=== PATIENT | female | born 1940 | race Caucasian/White ===

== ENCOUNTER 2017-08-31 14:44 | Emergency (ER) | payer MEDICARE, OTHER, SELFPAY ==
[2017-08-31 14:45] VITALS: BP 153/74; PULSE 65; RESP 20; TEMP 36.2; O2SAT 96; BMI 43.7
--- NOTE | 2017-08-31 15:53 | ED.VISSUMM ---
- ER Visit Summary Date of Service: 08/31/17 Chief Complaint: Dog bite left hand History of Present Illness: The patient is a 77 F resents to the emergency department with dog bite to her left hand. Patient states that she was at a picnic. Her 4-year-old grandson dropped a hot dog. 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 Her dog bit her on the hand. Dog's vaccinations are up-to-date. The patient is unsure of her last tetanus. She states that she had a lot of pain and bleeding. She is not on anticoagulants. 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 Physical Examination: Exam is relatively unremarkable. The patient does have a 2 cm laceration that is full-thickness with some tissue avulsion. She also has a 1 cm that is more proximal. Sensation is preserved to light touch. Patient is able to flex and extend the hand. There is no evidence of retained foreign body. Rest of exam is unremarkable. Test Results: [] Emergency Department Course and Treatment: I did debride the subcutaneous tissue that was exposed. The wounds were irrigated. It will be closed with Steri strips to allow drainage. The patient's tetanus is updated. She will be placed on Augmentin. She is counseled that she would need follow-up to have her wound reevaluated in 48 hours. The patient is comfortable with this plan of care. She will be discharged home. Treatment Plan: [] Disposition: Charge Impression: 1. Dog bite left hand This note was generated with [employer] dictation software. It may contain incorrect words, spelling, and punctuation that were not noted in review of the chart prior to signing ED Disposition - Plan for ED Patient: Chief Complaint: Bite Instructions: ED Bite Dog Prescriptions: Amox/Clavulanate Tablet [Augmentin Tablet] 875 mg PO Q12H #14 tab Referrals: Marko Capone MD [Primary Care Provider] -
[2017-08-31] MEDS: Diphth,Pertuss(Acell),Tet Vac 0.5 ML Vial IM (16:25)
[2017-08-31] MEDS: HYDROcodone Bitartrate/Apap 5/325 Tablet PO (16:26)
[2017-08-31] MEDS: Amox/Clavulanate 875 MG Tablet PO (16:26)
[2017-08-31 16:33] VITALS: BP 155/82; PULSE 57; RESP 18; O2SAT 96
== END 2017-08-31 16:45 | disposition home or self-care (01) ==
LOC: ED 16:25
PROVIDERS: Emergency Provider Emergency Medicine; Family Provider Family Medicine; PCP Family Medicine
DX: S61.452A Open bite of left hand, initial encounter (principal); W54.0XXA Bitten by dog, initial encounter; Y93.89 Activity, other specified; Y92.89 Other specified places as the place of occurrence of the external cause; Z22.322 Carrier or suspected carrier of Methicillin resistant Staphylococcus aureus; I25.10 Atherosclerotic heart disease of native coronary artery without angina pectoris; E11.9 Type 2 diabetes mellitus without complications; I10 Essential (primary) hypertension; Z23 Encounter for immunization; Z79.899 Other long term (current) drug therapy
CPT/HCPCS: 90715; 99283

== ENCOUNTER 2017-11-16 06:07 | Day surgery (SDC) | payer MEDICARE, OTHER, SELFPAY ==
--- NOTE | 2017-11-14 08:31 | HP.PCM_ITS ---
History and Physical Date of Admission: 11/16/17 HISTORY AND PHYSICAL ? Ting Vega 1940 ? REFERRING PHYSICIAN: ~~Marko Capone MD ? CHIEF COMPLAINT: ~~New Patient; Hemorrhoids; and possible abdominal hernias ? HPI: The patient is a 77 year old female referred for endoscopy. ~Ting notes the following GI complaints: ~~Ting denies new or active~abdominal pain~to me, but has noted with her family practice evaluation by Dr. Capone occasional right flank and abdominal pain. ~When questioned further, she notes that she has had discomfort in this area ever since she's had gastric bypass surgery. ~ In 2004. ~Ting denies~diarrhea/loose stools. ~~Ting denies~constipation. ~Ting denies~a change in bowel habits. ~Ting denies~melena. ~Ting denies~bright red blood per rectum. ~~~Ting notes that her symptoms of rectal pain and some burning are likely from hemorrhoids - but she has been using a suppository and now notes resolution of that rectal/anal pain. ~~~The patient notes she has vomiting of food approximately 3 times a week. ~It doesn't seem to have any consistency. ~Sometimes she'll notes she eats a hamburger without problems. ~ Then 2 days later, she has a hamburger and vomits. ~She denies true nausea with this. ~She notes no blood in her vomitus. ? Ting has ~undergone prior endoscopy. ~It has been some time. ? The patient is being seen by me today at the request of Dr. Marko Capone MD~for my opinion and advice regarding upper abdominal symptoms, vomiting, loose stools. ? ? PAST MEDICAL HISTORY PAST MEDICAL HISTORY Diagnosis Date ? Chronic airway obstruction, not elsewhere classified ? ? Essential hypertension, benign ? ? Insomnia 07/30/2011 ? Obesity, unspecified ? ? Open wound of knee, leg (except thigh), and ankle, complicated ? ? Other pulmonary embolism and infarction ? ? Phlebitis and thrombophlebitis of femoral vein (deep) (superficial) (HCC) ? ? Unspecified sleep apnea ? ? ? PAST SURGICAL HISTORY PAST SURGICAL HISTORY Procedure Laterality Date ? DELIVERY ONLY ? ? ? , low cervical ? DEBRIDE SKIN AND SUBQ TISSU ? 02/17/07 ? LEFT LEG ? DEBRIDE SKIN AND SUBQ TISSU ? [id number] ? LEFT LEG ? DEBRIDE SKIN AND SUBQ TISSU ? [id number] ? LEFT LEG ? DEBRIDE SKIN AND SUBQ TISSU ? [id number] ? LEFT LEG ? DEBRIDE SKIN AND SUBQ TISSU ? [id number] ? LEFT LEG ? DEBRIDE SKIN AND SUBQ TISSU ? 03/03/07 ? LEFT LEG ? GASTRIC BYPASS ? 07/08 ? HEMORRHOID;BAND LIGAT, SNGL/MUL ? ? ? PAST SURGICAL HISTORY OF ? 04/10/2016 ? [place] and new knee cap put in right leg ? PAST SURGICAL HISTORY OF ? 04/25/2016 ? had to debri right leg wound with cellutitis infection ? MA ANESTH,REPAIR LO ABD HERNIA NOS ? 04/2004,05/11 ? gortex put in on 05/11 then taken out06/08 ? REMOVAL GALLBLADDER ? ? ? TOTAL KNEE REPLACEMENT ? 1990 ? bilateral total knee s([place]) ? TOTAL KNEE REPLACEMENT ? 10/24/04 ? bilateral total knee revisions ? ? CURRENT MEDICATIONS ? Current Outpatient Prescriptions: zolpidem (AMBIEN) 10 mg tab Take 1 tablet by mouth at bedtime as needed for up to 180 days. temazepam (RESTORIL) 15 mg cap TAKE 1-2 TABLETS AT BEDTIME NEEDED traMADol (ULTRAM) 50 mg tablet Take 1 tablet by mouth every 6 hours as needed for Pain for up to 90 days. FOR PAIN hydrocortisone (ANUSOL-HC) 2.5 % rectal cream 1 application by RECTAL route twice daily. calcium acetate (PHOSLO) 667 mg capsule TAKE 1 CAPSULE BY MOUTH THREE TIMES DAILY. FERREX 150 150 mg iron capsule TAKE 1 CAPSULE BY MOUTH ONCE DAILY. tolterodine ER (DETROL LA) 4 mg 24 hr capsule TAKE 1 CAPSULE BY MOUTH ONCE DAILY. tolterodine ER (DETROL LA) 4 mg 24 hr capsule Take 1 capsule by mouth once daily. levothyroxine (SYNTHROID) 100 mcg tablet Take 1 tablet by mouth once daily. Take on empty stomach lisinopril-hydrochlorothiazide (PRINZIDE,ZESTORETIC) 10-12.5 mg per tablet TAKE 1 TABLET BY MOUTH ONCE DAILY. Otqfjbzyqzs-Ldgpzzdkx-Qpr C-Mn (GLUCOSAMINE CHONDROITIN MAXSTR) 500-400 mg cap Take 1 capsule by mouth three times daily. multivitamin tablet Take 1 tablet by mouth once daily. Magnesium 200 mg tab Take 200 mg by mouth once daily. Zinc 50 mg tab Take 1 tablet by mouth once daily. codeine-guaiFENesin (GUAIFENESIN AC) 10-100 mg/5 mL syrup Take 5 mL by mouth three times daily as needed. MAGNESIUM OXIDE/MAGNESIUM (MAGNESIUM, OXIDE/AA CHELATE, ORAL) Take 500 mg by mouth once daily. zinc Take 30 mg by mouth once daily. omeprazole (PRILOSEC) 20 mg capsule Take 1 capsule by mouth once daily. cholecalciferol (VITAMIN D3) 1,000 unit tab tablet Take 2 tablets by mouth once daily. senna-docusate (SENNA-S) 8.6-50 mg per tablet Take 1 tablet by mouth once daily. ascorbic acid(VITAMIN C 500 MG TAB) Take one(1) tablet daily. VITAMIN E 400 UNIT CAP Take one(1) tablet twice daily. pyridoxine hcl(VITAMIN B-6 100 MG TAB) Take one(1) tablet daily. CENTRUM PERFORMANCE TAB Take one(1) tablet daily. fryytrm-rpvngxwsd-xgegipl D3 (CALCIUM 500+D) 500 mg(1,250mg) -200 unit per tablet Take 1 tablet by mouth twice daily with meals. vitamin b complex (B COMPLETE) tab Take 1 tablet by mouth once daily. ? No current facility-administered medications for this visit. ? ALLERGIES: Aspirin; Bactrim [Sulfamethoxazole-Trimethoprim]; Ibuprofen; Peanut Butter [Other]; Sulfa (Sulfonamide Antibiotics) ? PERSONAL HISTORY: SOCIAL HISTORY Social History ~~Marital status: Single ~~~~~~~~~~~~~Spouse name: ~~~~~~~~~~~~~~~~~~ ~~Years of education: ~~~~~~~~~~~~~~~~Number of children: 1 ~~~~~~~~ ? Occupational History Occupation ~~~~~~~~~Employer ~~~~~~~~~~~Comment ~~~~~~~~~~~~ Retired ~~~~~~~~~~~~[employer] ~~ ? Social History Main Topics ~~Smoking status: Former Smoker ~~~~~~~~~~~~~~~~~~~~~~~~~~~~~~~~~~~~~~~~~~~~~~~~ ~~~~~~~~ ~~~~~Packs/day: 0.25 ~~~~~Years: 1.00 ~~~ ~~~~~Types: Cigarettes ~~~~~Quit date: 04/06/1953 ~~Smokeless tobacco: Never Used ~~~~~~~~~~~~~~~~~~~ ~~Alcohol use: Yes ~~~~~~~~ ~~~~~Comment: ocas glass of wine ~~Drug use: No ~~~~~~~~~ ~~~~~Comment: used drugs for 3 years ~~Sexual activity: No ~~~~~~~~~~~~~~ ? ? FAMILY HISTORY: FAMILY HISTORY FAMILY HISTORY Problem Relation Age of Onset ? Cancer Mother ? ? ? ovarian ? REVIEW OF SYMPTOMS: ~~The review of systems data was entered by the nurse and reviewed by me ? Nursing Notes: Viridiana Byrd Ma ~10/20/2017 ~2:58 PM ~Signed REVIEW OF SYSTEMS: ~~~~~General:~~~The patient denies fatigue, NOTES weight loss, NOTES weight gain , denies feeling hot, and denies feelings of cold. ~~~~~Eyes: ~The patient denies glaucoma, denies eye injury/surgery, wears glasses or contacts. ~~~~~Ear/Nose/Throat: ~The patient denies allergies, denies hayfever, denies ear infections, and denies bloody noses. ~~~~~Cardiovascular: ~The patient denies chest pain, denies heart disease, NOTES high blood pressure,denies cardiac stent, denies prior heart attack, denies irregular heart beat, denies high cholesterol, ~denies poor circulation, denies heart failure, other cardiac issues, denies claudication, denies cold feet, denies peripheral arterial stent. ~~~~~Respiratory: ~The patient denies tuberculosis, denies pneumonia, denies frequent cough, denies pulmonary embolism, denies shortness of breath, and denies coughing up blood. ~~~~~Gastrointestinal: ~The patient denies difficulty swallowing, NOTES acid reflux, denies ulcers, NOTES vomiting, denies jaundice/hepatitis, denies gallbladder problems, denies black or tarry stools, NOTES hemorrhoids, NOTES bleeding from rectum, denies diverticulitis, denies constipation, denies diarrhea, denies loss of stool control, and NOTES hernias. ~~~~~Kidney/Bladder: ~The patient denies kidney stones, denies urine infections , and denies bloody urine. ~~~~~Skin: ~The patient denies a history of skin cancer, denies bleeding/ changing moles, and denies a history of skin rash. ~~~~~Neurologic: ~The patient denies a history of epilepsy/convulsions, denies headaches, denies head/spinal injuries, and denies stroke/TIA. ~~~~~Psychiatric: ~The patient denies psychiatric medications, denies depression , and denies voices, denies substance abuse. ~~~~~Endocrine: ~The patient denies thyroid disorders, denies diabetes, and denies hormonal problems. ~~~~~Hematologic: ~The patient NOTES a history of bruising, denies bleeding, and denies anemia, denies blood clots. ~~~~~Infections: ~The patient denies a history of measles and mumps, denies rheumatic fever, and denies sexually transmitted diseases. ~~~~~Musculoskeletal: ~The patient denies back pain/injury, denies back problems , denies sciatica, denies knee/foot trouble, denies arthritis, or denies gout. ? ? When was patient's last Mammogram screening? 2018 ? ~Last Colonoscopy: ~09/19/2002 ? Viridiana Byrd Ma ~ PHYSICAL EXAMINATION: ? General: ~The patient is 77 year old female, well nourished, well hydrated in no acute distress. ~The patient is oriented to time, place, and person. ? VITALS: Blood pressure 148/78, pulse 60, height 157.5 cm (5' 2), weight 109.3 kg (241 lb).~Body mass index is 44.08 kg/m?.~ ? HEENT: ~Normal cephalic, ataumatic, pupils are equally round, sclera are anicteric, mucous membranes are moist, oropharynx is clear. ~Neck has no masses , asymmetry or lymphadenopathy. ~Thyroid is unremarkable. ? Respiratory: ~Clear to auscultation and percussion. ~Normal respiratory excursion and pattern. ? Cardiac: ~Examination is regular rate and rhythm. ? Abdominal exam: ~Soft, nontender, ~with no palpable masses. ~No hepatosplenomegaly. ~No palpable hernias. ? Rectal exam: exam deferred ? Extremities: ~no clubbing, cyanosis or edema. ~No adenopathy. ? Other: ? LABORATORY VALUES: As Noted ? RADIOLOGIC STUDIES: ~As Noted ? Assessment ~ IMPRESSION: Change in bowel habits, loose stools, left upper~quadrant abdominal pain, vomiting ? PLAN: ~I plan to perform upper and lower~endoscopy. ~~We discussed the risks and benefits of the planned endoscopy. ~I have informed the patient that complications can occur including failure to complete the endoscopy and perforation. ~The patient had the opportunity to ask questions concerning the planned endoscopy. ~My staff has also explained the procedure to the patient in understandable terms and has given the patient printed material concerning the procedure. ~The patient freely consents to surgery. ? I plan to use golytely bowel preparation for endoscopy ? I plan for monitored anesthetic care. ? Diagnoses: (Z12.11) Encounter for screening colonoscopy ~(primary encounter diagnosis) (K62.89) Anal or rectal pain ? My findings have been communicated to Dr. ~Marko Capone MD~via shared medical record. ~This note will be forwarded to Dr. Marko Capone MD. ~~ Return to Clinic: The patient is instructed to follow-up with me after the testing has been completed. ? Jae Cagle MD
--- NOTE | 2017-11-16 | IMM_PTH ---
PATIENT: MARI LOPEZ LOC: EN U#:[id number] AGE/SX: 77/F ROOM: RE11/16/[address]: Dr. Jae Cagle MD : 1940 BED: DIS: 11/16/2017 SPEC #: [id number] RECD: 11/16/17 12:57 STATUS: KIRIT RERobin #: [id number] CORKY: 11/16/17 00:[address]: Jae Cagle DEPT: IMMUNOHISTOCHEMISTRY RECD BY: Zonia German ENTERED: 11/16/17 12:57 SP TYPE: IMMUNO OTHR DR: Dr. Marko Capone MD Tissues: A - Stomach, NOS Procedures: H Pylori (initial) PHYSICIAN & INSTITUTION [place] [id number] SPECIMEN INFORMATION: Tissue Source: A ? Antrum biopsy Clinical Info: Change in bowel habits, loose stools, LUQ abdominal pain, vomiting Specimen Number: [id number] CPT code: 52623 METHODOLOGY: Deparaffinized sections of prefer/formalin-fixed tissue or PAP/DQ stained slides are incubated with monoclonal/polyclonal antibodies/oligonucleotide probes. Localization is made via biotin free immunoperoxidase method. Appropriate controls are performed and reacted as expected. Results on target cell population are indicated in the following table: RESULTS: ANTIBODY / CLONE RESULT Block A H Pylori (polyclonal) negative These tests were developed and their performance characteristics determined by [facility]. They may not have been cleared or approved by the U.S. Food and Drug Administration. The FDA has determined that such clearance or approval is not necessary. INTERPRETATION: A. Antrum, biopsy: Negative for Helicobacter pylori organisms. SJ:shelton 11/17/17
[2017-11-16 06:29] VITALS: BP 167/69; PULSE 53; RESP 16; TEMP 36.3; O2SAT 96; BMI 44.2
--- NOTE | 2017-11-16 08:08 | PCM.OPRPT ---
Report of Operation Date of Procedure: 11/16/17 Pre-Operative Diagnosis: vomiting, abdominal pain, rectal bleeding Post-Operative Diagnosis: minimal gastritis, healthy gastrojejunosctomy, anal stenosis with bleeding, small polyp transverse colon Surgery/Procedure Performed:: EGD with biopys, Colonoscopy with Biopsy sheltered workshop executive director: None Type of Anesthesia:: MAC Anesthesiologist: Shlomo Hernandez ASA3 Specimen's removed: gastric, transverse colon polyp, sigmoid biopsy Description of Procedure: The patient was brought to the endoscopy suite. Sign in was performed verifying patient, site, planned procedure, critical nursing information, the patient was monitored with cardiac, pulse oximetric, and blood pressure monitoring devices. Monitored anesthetic care was provided for sedation. Following IV sedation and after the oropharynx was sprayed with Cetacaine spray, a video gastroscope was inserted in the oropharynx and advanced down the esophagus without difficulty. The scope was advanced through the stomach pouch through the anastomosis into the proximal jejunum. the lesion appeared unremarkable. As the scope was withdrawn. There are both a fentanyl fragment limbs. Both limbs appeared unremarkable. The gastrojejunostomy appeared healthy, widely patent without ulcerations. There was a small amount of irritation of the stomach just proximal to the anastomosis. A biopsy was obtained at the area. The pouch seemed to be appropriate size for gastric bypass history. The distal esophagus demonstrated mild reflux changes without other significant abnormalities. Remainder the esophagus was unremarkable. The patient was positioned for colonoscopy. A digital rectal exam was performed which revealed a severely stenosed anus that allowed a single digits to be inserted after digital dilation. There was noted to be fresh blood with that dilatation. The video colonoscope was inserted and advanced to the cecum as verified by the ileocecal valve, cecal base anatomic features and palpation. the cecum, ascending colon and hepatic flexure appeared unremarkable area. There was a diminutive polyp in the transverse colon that was removed via cold biopsy forceps. The remainder of the transverse colon, splenic flexure, descending colon all appeared unremarkable. The scope was retroflexed in the rectum. The internal anal verge appeared unremarkable. The patient tolerated the procedure well and was brought to recovery in stable condition
[2017-11-16 08:10] VITALS: BP 150/68; BP 167/69; PULSE 75; RESP 16; TEMP 36.2; O2SAT 97
[2017-11-16 08:15] VITALS: BP 167/69; BP 175/77; PULSE 64; RESP 16; O2SAT 99
--- NOTE | 2017-11-16 08:15 | GASB_PTH ---
PATIENT: MARI LOPEZ LOC: EN U#:[id number] AGE/SX: 77/F ROOM: RE11/16/[address]: Dr. Jae Cagle MD : 1940 BED: DIS: 11/16/2017 SPEC #: [id number] RECD: 11/16/17 11:20 STATUS: KIRIT SHERIF #: [id number] CORKY: 11/16/17 08:[address]: Jae Cagle DEPT: SURGICAL PATHOLOGY RECD BY: Jae Mistry ENTERED: 11/16/17 11:27 SP TYPE: Gastric Bx OTHR DR: Dr. Marko Capone MD Tissues: A - Gastric mucous membrane B - Transverse colon C - COLON BIOPSY Procedures: Surgery Specimen Level IV HEADER OPERATION: Colonoscopy, EGD ([facility] PRE-OP DIAGNOSIS: Change in bowel habits, loose stools, left upper quadrant abdominal pain, vomiting TISSUE SUBMITTED: A ? Antrum biopsy for H. pylori and path, B ? Transverse colon polyp biopsy, C ? Random biopsy 30 cm colon MICROSCOPIC DIAGNOSIS A. Antrum, biopsy: Mild gastritis. B. Transverse colon polyp, biopsy: Tubular adenoma. C. 30 cm colon, random biopsy: Fragments of colonic mucosa, no pathologic diagnosis. SJ:rg 11/17/17 COMMENT A. The results of immunohistochemistry for Helicobacter pylori will be reported separately ([id number]). MICROSCOPIC DESCRIPTION Slides are reviewed. A. The specimen shows fragments of gastric mucosa with chronic inflammatory cell infiltrates in the lamina propria consisting of lymphocytes and plasma cells, consistent with mild chronic gastritis. GROSS DESCRIPTION A - Received in fixative is one container labeled with the patient's name and designated antrum biopsy. The specimen consists of two irregular fragments of light burt soft tissue that in aggregate measure 0.5 x 0.4 x 0.1 cm. The specimen is totally submitted in one cassette. B - Received in fixative is one container labeled with the patient's name and designated transverse colon polyp biopsy. The specimen consists of one irregular fragment of light burt soft tissue that measures 0.4 x 0.3 x 0.1 cm. The specimen is totally submitted in one cassette. C - Received in fixative is one container labeled with the patient's name and designated random biopsy 30 cm colon. The specimen consists of multiple irregular fragments of light burt soft tissue that in aggregate measure 0.4 x 0.3 x 0.1 cm. The specimen is totally submitted in one cassette. / SJ:rg 11/16/17 TC:5 CPT: 35576 x3
[2017-11-16 08:20] VITALS: BP 100/76; BP 167/69; PULSE 60; RESP 16; O2SAT 100
[2017-11-16 08:23] VITALS: BP 157/70; BP 167/69; PULSE 58; RESP 16; TEMP 36.2; O2SAT 100
[2017-11-16 08:56] VITALS: BP 167/69
== END 2017-11-16 08:57 | disposition home or self-care (01) ==
LOC: EN 06:08 → AC 06:10
PROVIDERS: Family Provider Family Medicine; PCP Family Medicine; Visit Provider Surgery
PROC: 0DJD8ZZ Inspection of Lower Intestinal Tract, Via Natural or Artificial Opening Endoscopic (ICD-10-PCS; CPT 45378; principal; 2017-11-16 08:10)
DX: Z12.11 Encounter for screening for malignant neoplasm of colon (principal); D12.3 Benign neoplasm of transverse colon; K62.4 Stenosis of anus and rectum; K29.70 Gastritis, unspecified, without bleeding; K21.9 Gastro-esophageal reflux disease without esophagitis; I10 Essential (primary) hypertension; G47.30 Sleep apnea, unspecified; K59.00 Constipation, unspecified; E66.9 Obesity, unspecified; Z68.41 Body mass index [BMI] 40.0-44.9, adult; Z86.711 Personal history of pulmonary embolism; Z78.0 Asymptomatic menopausal state; Z98.84 Bariatric surgery status; Z90.49 Acquired absence of other specified parts of digestive tract; Z96.653 Presence of artificial knee joint, bilateral; Z79.899 Other long term (current) drug therapy; Z87.891 Personal history of nicotine dependence
CPT/HCPCS: 43239; 45380; 88305; 88342; J7120

== ENCOUNTER 2018-01-07 10:47 | Day surgery (SDC) | payer MEDICARE, OTHER, SELFPAY ==
[2018-01-07] VITALS (10 sets, daily range): BP systolic 148–170; BP diastolic 63–91; PULSE 57–66; RESP 16; TEMP 35.9–36.6; O2SAT 95–100; BMI 44.6
[2018-01-07 11:32] LABS: Hematocrit 39.5 % (37-47); Hemoglobin 12.6 g/dl (12.0-15.0); Mean Corp Hgb Conc 31.9 g/gl (32-36); Mean Corpuscular Hgb 32.7 pg (27.0-32.0); Mean Corpuscular Volume 102.6 fL (81-99); Mean Platelet Vol. 12.2 fl (6.2-12.0); Platelet Count 163 K/mm3 (150-450); RBC Distribution Width CV 13.3 % (11.6-14.6); RBC Distribution Width SD 49.5 fl (35.1-43.9); Red Blood Count 3.85 M/mm3 (4.2-5.4); White Blood Count 5.6 K/mm3 (4.4-11.0)
[2018-01-07 11:34] LABS: Scan Indicated on CBC? Y/N NO
--- NOTE | 2018-01-07 12:45 | EMB_PTH ---
PATIENT: MARI LOPEZ LOC: [facility] [place] U#:[id number] AGE/SX: 77/F ROOM: RE01/07/[address]: Dr. Elana Broderick, MDDOB: 1940 BED: DIS: 01/07/2018 SPEC #: [id number] RECD: 01/08/18 08:30 STATUS: KIRIT SHERIF #: [id number] CORKY: 01/07/18 12:[address]: Elana Broderick DEPT: SURGICAL PATHOLOGY RECD BY: Jae Mistry ENTERED: 01/08/18 11:57 SP TYPE: ENDOM BX/C OTHR DR: Dr. Marko Capone MD Tissues: Endometrium, NOS Procedures: Surgery Specimen Level IV HEADER OPERATION: Hysteroscopy, D & C, Symphion PRE-OP DIAGNOSIS: Postmenopausal bleeding, thickened endometrial TISSUE SUBMITTED: Endometrial curettings and polyps MICROSCOPIC DIAGNOSIS Endometrial curettings and polyps: Simple and complex hyperplasia with focal atypia. See comment. SJ:shelton 01/11/18 COMMENT Correlation with clinical findings and appropriate follow up are necessary. Case has been reviewed in consultation with Dr. Sow who concurs with the above diagnosis. IDC:AM MICROSCOPIC DESCRIPTION Slides are reviewed. GROSS DESCRIPTION Received in fixative is one container labeled with the patient's name and designated endometrial curettings and polyps. The specimen consists of multiple fragments of burt hemorrhagic soft tissue that in aggregate measure 5 x 3 x 0.6 cm. The entire specimen is submitted in four cassettes. / DAVON:shelton 01/08/18 TC:5 CPT: 00056
--- NOTE | 2018-01-07 14:06 | DCINST_ITS ---
Discharge Diet: No Restrictions Discharge Activity: Return to Normal Activity, May Shower, May Take a Tub Bath - in 2 weeks. May resume sexual activity in: 1 week Call your doctor if you observe: Fever of 101 or Higher, Using more than one pad per hour Allergies/Adverse Reactions: Allergies peanut Allergy (Verified 12/31/17 13:59) Anaphylaxis process peanut, can eat peanuts, not example peanut butter Sulfa (Sulfonamide Antibiotics) Allergy (Verified 12/31/17 13:59) Unknown sulfamethoxazole [From Bactrim] Allergy (Verified 12/31/17 13:59) Other trimethoprim [From Bactrim] Allergy (Verified 12/31/17 13:59) Other Medications to take at Discharge Temazepam 1 tab PO QHS PRN PRN 08/29/13 Lisinopril/Hydrochlorothiazide [Zestoretic 01/15.5 Tablet] 1 tablet PO DAILY 04/14/16 Multivitamins,Therapeutic [Multivitamin] 1 tablet PO DAILY 04/14/16 Tolterodine Tartrate [Detrol LA] 4 mg PO DAILY 04/14/16 Calcium Acetate 667 mg PO TID #90 capsule 04/29/16 Cholecalciferol (VIT D3) [Vitamin D3] 2,000 unit PO DAILY tablet 04/29/16 Senna/Docusate Sodium [Senokot-S] 2 tablet PO BID tablet 04/29/16 Ascorbic Acid [Vitamin C] 500 mg PO BIDCM 08/31/16 Iron Polysaccharide Complex [Ferrex 150] 325 mg PO DAILYCM 08/31/16 Magnesium Oxide [Magnesium] 500 mg PO DAILY 08/31/16 Omeprazole [Prilosec] 20 mg PO DAILY 11/13/17 Misoprostol 200 mcg PO PRN PRN 12/31/17 Primary Care Physician: Marko Capone MD [Primary Care Provider] - Test Results: Test results from this visit will be discussed in further detail at your follow- up appointment, if applicable.
--- NOTE | 2018-01-07 14:07 | PCM.OP.BLANK ---
Operative Report Date of Procedure: 01/07/[address] Elana Suarez-Marques [employer] Maker: none Preoperative diagnosis: Post menopausal bleeding, Thickened endometrium Postoperative diagnosis: Same, endometrial polyp Procedure performed: Hysteroscopy, dilation and curettage,polypectomy with symphion Complications: None Implantable devices: IUD Estimated blood loss: 5 cc Drains: None Anesthesia: MAC fluid deficit: 350 Informed consent was obtained the patient was taken the operating room she was placed in supine position. She was given anesthesia. She was then placed in the [facility] where she was prepped and draped in the normal sterile fashion. At this time the weighted speculum was placed in the posterior fornix of vagina. Single-tooth tenaculum was used to gently grasp the anterior lip the cervix. At this time the uterine cavity was sounded to approximately 8 cm. Gentle dilatation was performed once adequate dilatation of the cervix was achieved the hysteroscope using normal saline as a distention medium. Large endometrial polyp noted and endocervical polyp. symphion used to remove polyp. Tubal ostia visualized after polyp removed. This time hysteroscopy was complete. Gentle Sharp curettage was then performed. Moderate amount of endometrial tissue removed. This will be sent to pathology for evaluation. Procedure was deemed complete successful there are no complications. Anticipated normal postoperative course. Instrument lap count correct ?2. Vaginal Sweep was negative.
--- NOTE | 2018-01-07 14:11 | OP.PCM_ITS ---
Operative Report Date of Procedure: 01/07/[address] Elana Suarez-Marques Dental Scheduler: none Preoperative diagnosis: Post menopausal bleeding, Thickened endometrium Postoperative diagnosis: Same, endometrial polyp Procedure performed: Hysteroscopy, dilation and curettage,polypectomy with symphion Complications: None Implantable devices: IUD Estimated blood loss: 5 cc Drains: None Anesthesia: MAC fluid deficit: 350 Informed consent was obtained the patient was taken the operating room she was placed in supine position. She was given anesthesia. She was then placed in the [facility] where she was prepped and draped in the normal sterile fashion. At this time the weighted speculum was placed in the posterior fornix of vagina. Single-tooth tenaculum was used to gently grasp the anterior lip the cervix. At this time the uterine cavity was sounded to approximately 8 cm. Gentle dilatation was performed once adequate dilatation of the cervix was achieved the hysteroscope using normal saline as a distention medium. Large endometrial polyp noted and endocervical polyp. symphion used to remove polyp. Tubal ostia visualized after polyp removed. This time hysteroscopy was complete. Gentle Sharp curettage was then performed. Moderate amount of endometrial tissue removed. This will be sent to pathology for evaluation. Procedure was deemed complete successful there are no complications. Anticipated normal postoperative course. Instrument lap count correct ?2. Vaginal Sweep was negative.
--- NOTE | 2018-01-07 14:32 | EKG12_ITS ---
Test Reason : RHYTHM CHANGE Blood Pressure : / mmHG Vent. Rate : 060 BPM Atrial Rate : 060 BPM P-R Int : 156 ms QRS Dur : 108 ms QT Int : 420 ms P-R-T Axes : -11 015 012 degrees QTc Int : 420 ms Normal sinus rhythm with sinus arrhythmia Incomplete left bundle branch block Nonspecific T wave abnormality Abnormal ECG When compared with ECG of 26-APR-2016 22:38, Premature atrial complexes are no longer Present Confirmed by KATHERINE JACK, CARMINE ([id number]), fashion editor VANDANA MUNIZ ([id number]) on 01/13/2018 3:53:37 PM Referred By: Elana Broderick Confirmed By:CARMINE MURPHY MD
== END 2018-01-07 16:02 | disposition home or self-care (01) ==
LOC: SDC 10:47 → AC 10:49
PROVIDERS: Anesthesiology; Family Provider Family Medicine; PCP Family Medicine; Visit Provider Obstetrics & Gynecology
PROC: 0UDB8ZZ Extraction of Endometrium, Via Natural or Artificial Opening Endoscopic (ICD-10-PCS; CPT 58558; principal; 2018-01-07 12:35)
DX: N85.01 Benign endometrial hyperplasia (principal); R32 Unspecified urinary incontinence; K21.9 Gastro-esophageal reflux disease without esophagitis; Z98.84 Bariatric surgery status; Z79.899 Other long term (current) drug therapy; G47.33 Obstructive sleep apnea (adult) (pediatric); I10 Essential (primary) hypertension; J44.9 Chronic obstructive pulmonary disease, unspecified; E66.9 Obesity, unspecified; Z68.41 Body mass index [BMI] 40.0-44.9, adult; Z71.3 Dietary counseling and surveillance; Z86.711 Personal history of pulmonary embolism
CPT/HCPCS: 58558; 36415; 84484; 85027; 88305; 93005; J7120

== ENCOUNTER → 2018-04-13 06:59 | Outpatient (CLI) | payer MEDICARE, OTHER, SELFPAY ==
--- NOTE | 2018-04-13 07:02 | ECHOD_ITS ---
Reason For Study: arrhythmia Procedure This was a 2D Doppler, Color Flow transthoracic echocardiogram. Exam performed in department. Left Ventricle Normal LV size. Left ventricular systolic function is lower limits of normal. The estimated ejection fraction is 53 %. Transmitral and pulmonary venous doppler flow suggestive of impaired relaxation of left ventricle. Stage 1 diastolic dysfunction. No regional wall motion abnormalities noted. Right Ventricle Normal RV size. Normal systolic function. Atria The left atrium is mildly enlarged. Normal right atrium. Mitral Valve Normal mitral valve. Tricuspid Valve Normal tricuspid valve. Mild tricuspid valve insufficiency. Pulmonary artery systolic pressure is 27 mmHg. Aortic Valve Trisinus/trileaflet aortic valve. Mild focal aortic valve calcification. Pulmonic Valve The pulmonic valve is not well visualized. Great Vessels Normal aortic root. The pulmonary artery is normal size. Normal inferior vena cava. Pericardium/Pleural No pericardial effusion. MMode/2D Measurements & Calculations LVIDd: 5.2 cm IVSd: 0.98 cm Ao root diam: 3.4 cm LVIDs: 3.2 cm LVPWd: 0.99 cm RVDd: 3.4 cm FS: 38.8 % LAV(MOD-bp): 91.2 ml LA A4 area: 26.3 cm2 LA dimension(2D): 4.6 cm LAV(MOD-bp) Indexed: 43.4 ml/m2 LAV(MOD-sp2): 90.5 ml LAV(MOD-sp4): 90.2 ml RA A4 area: 13.6 cm2 Doppler Measurements & Calculations MV E max gerson: 42.2 cm/sec Lat Peak E' Gerson: 8.4 cm/sec Med Peak E' Gerson: 5.7 cm/sec MV A max gerson: 75.9 cm/sec E/E' lat: 5.0 E/E' med: 7.3 MV E/A: 0.56 Ao V2 max: 132.3 cm/sec LV V1 max: 90.6 cm/sec PA V2 max: 89.9 cm/sec Ao max P.0 mmHg LV V1 max P.3 mmHg TR max gerson: 239.9 cm/sec TR max P.0 mmHg Interpretation Summary Normal LV size. Left ventricular systolic function is lower limits of normal. The estimated ejection fraction is 53 %. Transmitral and pulmonary venous doppler flow suggestive of impaired relaxation of left ventricle Stage 1 diastolic dysfunction. The left atrium is mildly enlarged. Ordering Physician: Norberto Jackson Referring Physician: Marko Capone Performed By: Bhavana Wiley, KAROLINACS, RVT
== END ==
PROVIDERS: Family Provider Family Medicine; PCP Family Medicine; Referring Provider Internal Medicine Cardiovascular Disease; Visit Provider Internal Medicine Cardiovascular Disease
DX: R94.31 Abnormal electrocardiogram [ECG] [EKG] (principal)
CPT/HCPCS: 93306

== ENCOUNTER → 2019-10-25 06:25 | Outpatient (CLI) | payer MEDICARE, OTHER, SELFPAY ==
[2019-10-17 13:15] VITALS: BMI 44.8
--- NOTE | 2019-10-25 06:26 | CT_ITS ---
STUDY: CT ABDOMEN AND PELVIS WITH CONTRAST REASON FOR EXAM: Female, 79 years old. LEFT SIDE ABD PAIN W/ BULGING, PT UNABLE TO DRINK ALL PO CONTRAST, GASTRIC BYPASS, CHOLECYSTECTOMY, HERNIA MESH ON LEFT SIDE OF ABD RADIATION DOSAGE (If Supplied By Facility): CTDIvol = ( 16.85 ) mGy, DLP = ( 1185.18 ) mGycm TECHNIQUE: Transaxial images were obtained from the dome of the diaphragm to the symphysis pubis without oral contrast. Oral and amp;amp; IV Readi-CAT and amp;amp; 100mL Isovue-300 was administered. Sagittal and coronal images were reconstructed. Individualized dose optimization techniques were used for this CT. COMPARISON: 2013 FINDINGS: There are chronic interstitial fibrotic changes of the lung bases. The visualized portions of the heart are within normal limits. Normal liver. There are surgical clips in the gallbladder fossa consistent with a prior cholecystectomy. Normal spleen. Normal pancreas. Normal bilateral adrenal glands. No obstructive uropathy, stable exophytic bilateral cysts. Post surgical changes noted in the distal stomach there is a small retrocardiac hiatal hernia. Normal small intestine. Retained stool noted throughout the colon. There is non-visualization of the appendix. Normal abdominal aorta. Normal inferior vena cava. Normal retroperitoneum. Normal urinary bladder. Uterus is still present and contains an IUD. No suspicious cystic mass or free fluid. Surgical changes noted in the ventral abdominal wall but no CT evidence of hernia. There are diffuse degenerative changes of the visualized lumbar spine. CT/Abdomen/Pelvis WITH Contrast IMPRESSION: Post surgical changes noted at the GE junction with small retrocardiac hiatal hernia. Stable bilateral exophytic renal cysts, no specific follow-up needed. Retained stool in the colon Uterus is still present and contains an IUD. No CT evidence of abdominal wall hernia Electronically Signed: Parish Carr MD at 11:19 EDT , Service support ,
[2019-10-25 07:03] LABS: Absolute Lymphocyte Count 2.59 X10^3/uL (0.83-4.51); Basophil# 0.05 X10^3/uL; Basophil% 0.8 % (0-1); Eosinophils% 4.6 % (0-5); Hematocrit 37.6 % (37-47); Hemoglobin 11.7 g/dL (12.0-15.0); Lymphocyte # 2.59 X10^3/ul (4.0); Lymphocyte % 39.5 % (19-41); Mean Corp Hgb Conc 31.1 g/dL (32-36); Mean Corpuscular Volume 109.3 fL (81-99); Mean Platelet Vol. 12.9 fl (6.2-12.0); Monocyte# 0.57 X10^3/uL; Monocyte% 8.7 % (0-10); NRBC Flagged by Analyzer 0 % (0-5); Neutrophil # 3.03 X10^3/uL (2.7-7.7); Neutrophil % 46.1 % (47-70); Platelet Count 198 K/mm3 (150-450); RBC Distribution Width CV 12.5 % (11.6-14.6); Red Blood Count 3.44 M/mm3 (4.2-5.4); White Blood Count 6.6 K/mm3 (4.4-11.0)
[2019-10-25 07:49] LABS: ALB/GLOB Ratio 0.9 RATIO (0.9-2.4); AST(SGOT) 22 U/L (15-37); Alanine Aminotransfer ALT/SGPT 25 U/L (13-56); Albumin, Serum 3.2 g/dL (3.2-5.0); Alkaline Phosphatase 57 U/L (45-117); Amylase 71 U/L (25-115); Anion Gap 6 (5-15); BUN 53 mg/dL (7-18); BUN/Creat Ratio 31.7 RATIO (10-20); Calcium,Total 8.2 mg/dL (8.5-10.1); Chloride 112 mmol/L (98-107); Creatinine, Serum 1.67 mg/dL (0.55-1.02); EST Glomerular Filtration Rate 32 mL/min (>60); Est Glom Filt Rate - Afr Amer 38 mL/min (>60); Globulin 3.6 g/dL (2.2-4.2); Glucose 92 mg/dL (74-106); Lipase 110 U/L (73-393); Potassium 4.5 mmol/L (3.5-5.1); Protein, Total 6.8 g/dL (6.4-8.2); Sodium Level 141 mmol/L (136-145)
== END ==
PROVIDERS: PCP Family Medicine; Referring Provider Surgery; Visit Provider Surgery
DX: R10.9 Unspecified abdominal pain (principal)
CPT/HCPCS: 36415; 74177; 80053; 82150; 83690; 85025; Q9967

== ENCOUNTER → 2019-11-07 07:57 | Outpatient (CLI) | payer MEDICARE, OTHER, SELFPAY ==
[2019-10-17 13:15] VITALS: BMI 44.8
--- NOTE | 2019-11-07 07:58 | RAD_ITS ---
PROCEDURE: SMALL BOWEL SERIES DATE OF EXAMINATION: 11/07/2019. INDICATION: Female, [address] scan of the abdomen and pelvis. PHYSICIAN: Dwain Caruso M.D. FLUOROSCOPY TIME (if supplied): (0:05) minutes/seconds TECHNIQUE: Radiographic and fluoroscopic images were taken of the small intestine following the ingestion of barium. COMPARISON: None. FINDINGS: A preliminary supine KUB was obtained. There is an unremarkable bowel gas pattern. Fecal material is present throughout the colon. Surgical clips are seen in the right upper quadrant. Phleboliths are present within the pelvis. IUD is seen within the pelvis. The lung bases are unremarkable. Degenerative changes throughout the lumbar spine. Mild levoscoliosis. The patient orally ingested approximately 12 ounces of thin barium the patient is status post subtotal gastrectomy and gastric bypass surgery. Normal duodenal bulb, C-loop, and proximal jejunum. Normal visualized mucosal folds of the jejunum and ileum. There are no demonstrated dilatations, strictures, or masses of the small intestine. There is no mass displacement of the loops of small intestine. There is a normal motor pattern with barium reaching the colon within approximately 30 minutes. Spot films under fluoroscopic observation demonstrated a normal terminal ileum and ileocecal valve. RAD/Small Bowel Series Only IMPRESSION: Normal small bowel series. Status post subtotal gastrectomy and gastric bypass surgery. Electronically Signed: Dwain Caruso, at 11:36 EDT , Service support ,
== END ==
PROVIDERS: PCP Family Medicine; Referring Provider Surgery; Visit Provider Surgery
DX: R10.9 Unspecified abdominal pain (principal); R93.5 Abnormal findings on diagnostic imaging of other abdominal regions, including retroperitoneum
CPT/HCPCS: 74250

== ENCOUNTER 2020-03-29 10:00 | Outpatient (RCR) | payer MEDICARE, OTHER, SELFPAY ==
[2019-10-17 13:15] VITALS: BMI 44.8
--- NOTE | 2020-03-15 09:56 | HP.PTEVAL_ITS ---
Patient's Visit Information MARI LOPEZ is a 79 year old F referred to Physical Therapy by Dr. Lokesh Mc MD with a diagnosis of Right Knee Pain/Instability. Date of Evaluation: 03/15/20 Physical Therapist: Shereen Peña DPT - Visit Plan Frequency: 2x /Week Duration: 4 Weeks Plan: Focus on LE and core strength/stabilization- gentle due to multiple knee surgeries- Functional mobility and balance - Subjective Patient reports thats he has had bilateral total knee replacements. Right knee replacement x2 ([place] 1988 and revision the [facility] 2000) then she fell and fractured the femur (2 years ago)- [facility]. Saw Dr. Mc- took x-rays- everything seems to be okay- she has a longer nancy than most people and he wants her to get stronger. She is a member of [employer] and needs to get back into it. Nevin under her 2-3x in the last few months. She has always had pain in the leg- nothing Tylenol can't handle. Does feel weakness in the knee. No N/T but does get muscle spasm in the legs. Consistently 4-5/10. Describes the pain as dulld and achy. Has a good bed so she is able to sleep. Lift chair and electric stairs- she is set up with all the stuff she needs. Fully I with all ADL's. Couple of weeks ago she did have a fall. 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 PMHx/Meds: see list from Dr. Gonzalez - Objective Posture: FH, RS- can correct but is unable to maintain. Gait: antalgic- decrease stance bilateral with short stride length and lumber posture. She has flat foot progression. No AD. Stairs: asc/desc non recip with 2 HR- poor pattern- descends sideways. HR/TR: able with UE A. SLS: weight shift only. Sit to radio antenna installer 30 sec: 11 with bilateral UE A. Observation: two incisions from TKR- well healed. Palpation: tender throughout knee around patella medial and lateral joint line. ROM: 0-90 degrees of ROM. Strength: Ankle: 5/5, Knee: 4/5, Hip: 4/5 throughout Core: fair. Balance: see FGA - Balance Scores Functional Gait Assessment Score: 16 % Disability: 46.6700 - Goals Goal 1:: Patient will be I with HEP and progression Goal Time Frame: 4-6 Weeks Goal 2:: Patient will asc/desc 8 stairs recip with 2 HR Goal Time Frame: 4-6 Weeks Goal 3:: Patient will SLS for 5 sec before LOB Goal Time Frame: 4-6 Weeks Goal 4:: Patient will perform 13 sit to stands in 30 seconds Goal Time Frame: 4-6 Weeks - Rehabilitation Potential Physical Therapy Diagnosis: Patient presents with hypomobility- she has decreased ROM,strength, flex and muscular endurance leading to poor proprioception, abnormal gait pattern and inability to perform ADL's. Rehabilitation Potential: Fair - Anticipated Interventions Patient/Client Instruction: Educate patient on: Benefits of Fitness Program Therapeutic Exercise to Include: Strength training, Endurance training, Balance training, Agility training, Body mechanics, Postural training, Flexibilty training, Gait and locomotor training, Neuromotor development, Dynamic Lumbar Stabilization, Scapular Strength/Stabilization For the Purpose of:: To improve muscle performance and motor function TENS: Yes Cryotherapy (ice pack, ice massage): Yes Thermo therapy (hot pack): Yes Ultrasound (thermal/non thermal): No Thank you for the opportunity to evaluate your patient. For Medicare and Medicare HMO plans, please review the plan of care and approve it. It will need to be FAXED BACK to us at [phone] for Medicare purposes. For Medicare only, by signing this I certify the plan of care. Please let me know if there are questions or concerns regarding this plan of care. Physician Signature: Date:
--- NOTE | 2020-03-29 10:25 | HP.PTDCSUM ---
It has been my pleasure to treat MARI LOPEZ referred by Dr. Lokesh Mc MD, with the diagnosis of Right Knee Pain/Instability for a total of 4 visit(s). Discharge Date: Please see the following information for a summary of their discharge status. Subjective: Patient reports that she is good to continue on her own through [employer]. She has a membership and its easier if she comes on her own time. She has no pain and is fully functional % Improvement: 100 Objective/Function: Posture: FH, RS- can correct but is unable to maintain. Gait: antalgic- decrease stance bilateral with short stride length and lumber posture. She has flat foot progression. No AD. Stairs: asc/desc non recip with 2 HR- poor pattern- descends sideways. HR/TR: able with UE A. SLS: weight shift only. 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 Observation: two incisions from TKR- well healed. Palpation: tender throughout knee around patella medial and lateral joint line. ROM: 0-90 degrees of ROM. Strength: Ankle: 5/5, Knee: 4/5, Hip: 4/5 throughout Core: fair. Goal 1:: Patient will be I with HEP and progression Goal Progress: Goal Met Goal 2:: Patient will asc/desc 8 stairs recip with 2 HR Goal Progress: Not Progressing Goal 3:: Patient will SLS for 5 sec before LOB Goal Progress: Not Progressing Goal 4:: Patient will perform 13 sit to stands in 30 seconds Goal Progress: Not Progressing Plan: Patient requests to be [facility] to [facility] If there are questions or concerns regarding this patient's physical therapy, please feel free to call me at [phone]. Thank you for the referral of this patient. Sincerely, BERNARDINO FranciscoT
== END 2020-03-29 19:00 | disposition home or self-care (01) ==
LOC: PT 10:00
PROVIDERS: PCP Family Medicine; Referring Provider Specialist; Visit Provider Specialist
DX: M25.361 Other instability, right knee (principal); Z96.651 Presence of right artificial knee joint
CPT/HCPCS: 97110; 97162; 97164

== ENCOUNTER 2020-06-04 13:02 | Outpatient (RCR) | payer MEDICARE, OTHER, SELFPAY ==
[2019-10-17 13:15] VITALS: BMI 44.8
== END 2020-06-04 23:59 ==
LOC: IMMUN 13:02
PROVIDERS: PCP Family Medicine; Visit Provider Family Medicine
DX: Z23 Encounter for immunization (principal)
CPT/HCPCS: 0011A; 0012A

== ENCOUNTER 2021-01-09 17:35 | Outpatient (CLI) | payer MEDICARE, OTHER, SELFPAY ==
[2021-01-09] MEDS: 0.9% Saline Lock 10 ML Syringe IV (18:01)
[2021-01-09 18:04] VITALS: BP 139/68; PULSE 78; RESP 16; TEMP 36.8; O2SAT 98; BMI 43.6
[2021-01-09 18:30] VITALS: BP 131/74; PULSE 16; RESP 16; TEMP 37.6; O2SAT 94
[2021-01-09 19:24] VITALS: BP 142/62; PULSE 71; RESP 16; TEMP 37.2; O2SAT 97
== END 2021-01-09 19:37 | disposition home or self-care (01) ==
LOC: MS3OUT 17:40 → MS3 17:40
PROVIDERS: PCP Family Medicine; Referring Provider Nurse Practitioner Adult Health; Visit Provider Nurse Practitioner Adult Health
DX: Z23 Encounter for immunization (principal); U07.1 COVID-19
CPT/HCPCS: J7050; M0243; A4216; Q0244

== ENCOUNTER → 2021-08-06 | Outpatient (CLI) | payer MEDICARE, OTHER, SELFPAY ==
[2021-08-06 15:23] LABS: BNP,B-Type NATRIURETIC PEPTIDE 66.7 pg/mL (0-100)
== END | disposition home or self-care (01) ==
LOC: LAB 14:06
PROVIDERS: PCP Family Medicine; Referring Provider Internal Medicine Cardiovascular Disease; Visit Provider Internal Medicine Cardiovascular Disease
DX: R06.00 Dyspnea, unspecified (principal)
CPT/HCPCS: 36415; 83880

== ENCOUNTER → 2021-08-29 | Outpatient (CLI) | payer MEDICARE, OTHER, SELFPAY ==
--- NOTE | 2021-08-29 13:01 | ECHOCS_ITS ---
Reason For Study: Dyspnea/SOB Procedure This was a 2D Doppler, Color Flow transthoracic echocardiogram. Contrast injection was performed. Exam performed in department. Left Ventricle Normal LV size. Left ventricular systolic function is normal. The estimated ejection fraction is 65 %. Stage 1 diastolic dysfunction. No regional wall motion abnormalities noted. Right Ventricle Normal RV size. Normal systolic function. Atria Normal left atrium. Normal right atrium. Mitral Valve Normal mitral valve. Tricuspid Valve Normal tricuspid valve. Mild tricuspid valve insufficiency. Pulmonary artery systolic pressure is 34 mmHg. Aortic Valve Trisinus/trileaflet aortic valve. Pulmonic Valve Normal pulmonic valve. Great Vessels Normal aortic root. The pulmonary artery is normal size. Normal inferior vena cava. Pericardium/Pleural No pericardial effusion. Medication Diluted definity 5ml given slow IV push to enhance endocardial definition. MMode/2D Measurements & Calculations LVIDd: 4.9 cm IVSd: 1.1 cm Ao root diam: 3.2 cm LVIDs: 2.5 cm LVPWd: 1.1 cm RVDd: 2.8 cm FS: 49.7 % LAV(MOD-bp): 40.1 ml LVAd ap4: 30.4 cm2 SV(MOD-sp4): 63.5 ml LAV(MOD-bp) Indexed: 19.7 ml/m2 LVLd ap4: 7.6 cm LAV(MOD-sp2): 33.5 ml EDV(MOD-sp4): 97.2 ml LAV(MOD-sp4): 36.5 ml EDV(sp4-el): 102.9 ml LVAs ap4: 16.0 cm2 LVLs ap4: 6.3 cm ESV(MOD-sp4): 33.7 ml ESV(sp4-el): 34.6 ml EF(MOD-sp4): 65.3 % EF(sp4-el): 66.3 % SV(sp4-el): 68.2 ml LA A4 area: 16.5 cm2 LA dimension(2D): 4.2 cm RA A4 area: 8.7 cm2 Doppler Measurements & Calculations MV E max gerson: 47.2 cm/sec Lat Peak E' Gerson: 8.0 cm/sec Med Peak E' Gerson: 5.7 cm/sec MV A max gerson: 70.6 cm/sec E/E' lat: 5.9 E/E' med: 8.3 MV E/A: 0.67 Ao V2 max: 122.9 cm/sec LV V1 max: 95.9 cm/sec PA V2 max: 89.9 cm/sec Ao max P.0 mmHg LV V1 max P.7 mmHg Ao V2 mean: 82.2 cm/sec Ao mean P.0 mmHg Ao V2 VTI: 24.6 cm TR max gerson: 270.1 cm/sec TR max P.2 mmHg ECHO/Echo Complete W/ Contrast Interpretation Summary Normal LV size. Left ventricular systolic function is normal. The estimated ejection fraction is 65 %. Stage 1 diastolic dysfunction. Pulmonary artery systolic pressure is 34 mmHg. Contrast injection was performed. Ordering Physician: Norberto Jackson Referring Physician: Marko Capone Performed By: Shruthi Bethea, MICHELLE, RVT
[2021-08-29 13:36] LABS: Anion Gap 8 (5-15); BUN 63 mg/dL (7-18); BUN/Creat Ratio 36.8 RATIO (10-20); Calcium,Total 8.6 mg/dL (8.5-10.1); Chloride 113 mmol/L (98-107); Creatinine, Serum 1.71 mg/dL (0.55-1.02); EST Glomerular Filtration Rate 31 mL/min (>60); Est Glom Filt Rate - Afr Amer 37 mL/min (>60); Glucose 96 mg/dL (74-106); Potassium 4.6 mmol/L (3.5-5.1); Sodium Level 142 mmol/L (136-145)
== END | disposition home or self-care (01) ==
LOC: CVS 12:50
PROVIDERS: PCP Family Medicine; Referring Provider Internal Medicine Cardiovascular Disease; Visit Provider Internal Medicine Cardiovascular Disease
DX: R06.00 Dyspnea, unspecified (principal)
CPT/HCPCS: 36415; 80048; 93306; Q9957; A4216; C8929

== ENCOUNTER → 2021-09-17 | Outpatient (CLI) | payer MEDICARE, OTHER, SELFPAY ==
[2021-09-17 16:34] LABS: Anion Gap 7 (5-15); BUN 41 mg/dL (7-18); BUN/Creat Ratio 29.3 RATIO (10-20); Calcium,Total 8.1 mg/dL (8.5-10.1); Chloride 115 mmol/L (98-107); EST Glomerular Filtration Rate 39 mL/min (>60); Est Glom Filt Rate - Afr Amer 47 mL/min (>60); Glucose 130 mg/dL (74-106); Potassium 4.7 mmol/L (3.5-5.1); Sodium Level 144 mmol/L (136-145)
== END | disposition home or self-care (01) ==
LOC: LAB 14:03
PROVIDERS: PCP Family Medicine; Referring Provider Internal Medicine Cardiovascular Disease; Visit Provider Internal Medicine Cardiovascular Disease
DX: I10 Essential (primary) hypertension (principal); R06.00 Dyspnea, unspecified
CPT/HCPCS: 36415; 80048

== ENCOUNTER → 2021-12-19 | Outpatient (CLI) | payer MEDICARE, OTHER, SELFPAY ==
--- NOTE | 2021-12-19 10:57 | VDLE_ITS ---
Reason For Study: Swelling RIGHT LEFT GSV is normal. GSV is normal. CFV is compressible, spontaneous, phasic, CFV is compressible, spontaneous, phasic, competent and demonstrates normal competent, and demonstrates normal augmentation. augmentation. FV is compressible, spontaneous, phasic, FV is compressible, spontaneous, phasic, competent and demonstrates normal competent and demonstrates normal augmentation. augmentation. POP V is compressible, spontaneous, phasic, POP V is compressible, spontaneous, phasic, competent and demonstrates normal competent and demonstrates normal augmentation. augmentation. T/P Trunk is compressible. T/P Trunk is compressible. PTV is compressible. PTV is compressible. RT PerV is compressible. LT PerV is compressible. Procedure This is a venous duplex using B-mode, color flow and spectral Doppler. Exam performed in department. A preliminary report was called and/or faxed to Estela BROWN. VL/Venous Duplex US - Tao Extrem Interpretation Summary Deep veins of the bilateral lower extremities are patent and compressible segme ntally. There is no evidence of bilaterarl lower extremity deep vein thrombosis. The bilateral grea t saphenous veins appear patent and compressible segmentally. Ordering Physician: Russell Gonzalez Referring Physician: MD Estelita Marko Performed By: Charlette Shane RVT
== END | disposition home or self-care (01) ==
LOC: CVS 10:53
PROVIDERS: PCP Family Medicine; Visit Provider Surgery Trauma Surgery
DX: M79.89 Other specified soft tissue disorders (principal)
CPT/HCPCS: 93970

== ENCOUNTER → 2021-12-26 | Outpatient (CLI) | payer MEDICARE, OTHER, SELFPAY ==
[2021-12-26 13:47] LABS: Absolute Lymphocyte Count 1.35 X10^3/uL (0.83-4.51); Absolute Neutrophil Count 3.9 X10^3/uL (2.0-7.7); Basophil# 0.04 X10^3/uL; Basophil% 0.7 % (0-1); Eosinophil# 0.26 X10^3/uL; Eosinophils% 4.3 % (0-5); Hematocrit 37.4 % (37-47); Hemoglobin 11.4 g/dL (12.0-15.0); Lymphocyte # 1.35 X10^3/ul (0.83-4.51); Lymphocyte % 22.4 % (19-41); Mean Corp Hgb Conc 30.5 g/dL (32-36); Mean Corpuscular Hgb 33.4 pg (27.0-32.0); Mean Corpuscular Volume 109.7 fL (81-99); Mean Platelet Vol. 12.5 fl (6.2-12.0); Monocyte# 0.45 X10^3/uL; Monocyte% 7.5 % (0-10); NRBC Flagged by Analyzer 0 % (0-5); Neutrophil # 3.93 X10^3/uL (2.7-7.7); Neutrophil % 64.9 % (47-70); Platelet Count 211 K/mm3 (150-450); RBC Distribution Width CV 13.4 % (11.6-14.6); RBC Distribution Width SD 54.6 fl (35.1-43.9); Red Blood Count 3.41 M/mm3 (4.2-5.4)
[2021-12-26 14:03] LABS: BNP,B-Type NATRIURETIC PEPTIDE 244.1 pg/mL (0-100)
[2021-12-26 14:05] LABS: ALB/GLOB Ratio 0.8 RATIO (0.9-2.4); AST(SGOT) 14 U/L (15-37); Alanine Aminotransfer ALT/SGPT 20 U/L (13-56); Albumin, Serum 3.1 g/dL (3.2-5.0); Alkaline Phosphatase 79 U/L (45-117); Anion Gap 5 (5-15); BUN 43 mg/dL (7-18); BUN/Creat Ratio 29.7 RATIO (10-20); Calcium,Total 8.7 mg/dL (8.5-10.1); Chloride 112 mmol/L (98-107); Creatinine, Serum 1.45 mg/dL (0.55-1.02); EST Glomerular Filtration Rate 37 mL/min (>60); Est Glom Filt Rate - Afr Amer 45 mL/min (>60); Globulin 3.7 g/dL (2.2-4.2); Glucose 90 mg/dL (74-106); Potassium 4.2 mmol/L (3.5-5.1); Protein, Total 6.8 g/dL (6.4-8.2); Sodium Level 143 mmol/L (136-145)
[2021-12-28 12:52] LABS: Cancer Antigen 125 12.5 U/mL (0.0-38.1)
== END | disposition home or self-care (01) ==
LOC: PAVLAB 13:19
PROVIDERS: PCP Family Medicine; Referring Provider Physician Assistant; Visit Provider Physician Assistant
DX: R06.00 Dyspnea, unspecified (principal); R18.8 Other ascites; M79.89 Other specified soft tissue disorders; I89.0 Lymphedema, not elsewhere classified
CPT/HCPCS: 36415; 80053; 83880; 85025; 86304

== ENCOUNTER → 2022-01-28 | Outpatient (CLI) | payer MEDICARE, OTHER, SELFPAY ==
[2022-01-28 11:24] LABS: Anion Gap 6 (5-15); BUN 41 mg/dL (7-18); BUN/Creat Ratio 30.1 RATIO (10-20); Calcium,Total 8.7 mg/dL (8.5-10.1); Chloride 111 mmol/L (98-107); Creatinine, Serum 1.36 mg/dL (0.55-1.02); EST Glomerular Filtration Rate 40 mL/min (>60); Est Glom Filt Rate - Afr Amer 48 mL/min (>60); Glucose 93 mg/dL (74-106); Potassium 4.2 mmol/L (3.5-5.1); Sodium Level 142 mmol/L (136-145)
== END | disposition home or self-care (01) ==
LOC: LAB 09:27
PROVIDERS: PCP Family Medicine; Referring Provider Internal Medicine Cardiovascular Disease; Visit Provider Internal Medicine Cardiovascular Disease
DX: M79.89 Other specified soft tissue disorders (principal); R06.00 Dyspnea, unspecified; E66.9 Obesity, unspecified; I10 Essential (primary) hypertension; I44.7 Left bundle-branch block, unspecified; I89.0 Lymphedema, not elsewhere classified
CPT/HCPCS: 36415; 80048

== ENCOUNTER 2022-03-04 12:31 | Outpatient (CLI) | payer MEDICARE, OTHER, SELFPAY ==
[2022-03-04 12:39] LABS: Mucous, Urine 0 SEEN /hpf (<or=2+); Red Blood Cells-Urine 0 SEEN /hpf (0-5)
[2022-03-04 13:33] LABS: Color, Urine Yellow (Yellow); Glucose, Dipstick Normal (Normal); Ketone-Dipstick Negative (Negative); Leukocyte Esterase-Dipstick 500 /ul (Negative); Nitrite-Dipstick Positive (Negative); Occult Blood-Urine 25 /ul (Negative); Protein-Dipstick 15 mg/dl (Negative); Specific Gravity, Urine 1.015 (1.002-1.030); Urine Bilirubin Dipstick Negative (Negative); Urine Clarity Sl. Cloudy (Clear); Urine Urobilinogen Normal (Normal)
[2022-03-04 13:57] LABS: Bacteria 1+ /hpf (None Seen); Squamous Epithelial Cells - UA 0-5 SEEN /hpf (5-10); White Blood Cells 10-25 SEEN /hpf (0-5)
[2022-03-04 14:07] LABS: AST(SGOT) 19 U/L (15-37); Alanine Aminotransfer ALT/SGPT 25 U/L (13-56); Alkaline Phosphatase 78 U/L (45-117); Anion Gap 7 (5-15); BUN 43 mg/dL (7-18); BUN/Creat Ratio 26.4 RATIO (10-20); Bilirubin, Direct 0.13 mg/dL (0.00-0.30); Calcium,Total 8.4 mg/dL (8.5-10.1); Chloride 115 mmol/L (98-107); Cholesterol 162 mg/dL (200); Creatinine, Serum 1.63 mg/dL (0.55-1.02); EST Glomerular Filtration Rate 32 mL/min (>60); Est Glom Filt Rate - Afr Amer 39 mL/min (>60); Globulin 3.8 g/dL (2.2-4.2); Glucose 102 mg/dL (74-106); High Density Lipoprotein 51 mg/dL; Phosphorus 3.7 mg/dL (2.5-4.9); Protein, Total 6.8 g/dL (6.4-8.2); Sodium Level 145 mmol/L (136-145); Triglycerides 312 mg/dL; Very Low Density Lipoprotein 62 mg/dL (5-40)
== END 2022-03-04 23:59 | disposition home or self-care (01) ==
PROVIDERS: Internal Medicine Cardiovascular Disease; PCP Family Medicine; Referring Provider Internal Medicine Nephrology; Visit Provider Internal Medicine Nephrology
DX: I13.0 Hypertensive heart and chronic kidney disease with heart failure and stage 1 through stage 4 chronic kidney disease, or unspecified chronic kidney disease (principal); I50.30 Unspecified diastolic (congestive) heart failure; N18.31 Chronic kidney disease, stage 3a; R06.00 Dyspnea, unspecified; E66.9 Obesity, unspecified
CPT/HCPCS: 36415; 80048; 80061; 80076; 81001; 84100

== ENCOUNTER 2022-03-06 11:06 | Outpatient (CLI) | payer MEDICARE, OTHER, SELFPAY | END 2022-03-06 23:59 | disposition home or self-care (01) | LOC: POLAB3 11:06 → LABSPEC 11:07 | PROVIDERS: PCP Family Medicine; Visit Provider Internal Medicine Nephrology | DX: N39.0 Urinary tract infection, site not specified (principal) | CPT/HCPCS: 87077; 87086; 87088; 87186 ==

== ENCOUNTER → 2022-03-19 | Outpatient (CLI) | payer MEDICARE, OTHER, SELFPAY ==
[2022-03-19 13:31] LABS: Albumin, Serum 3.3 g/dL (3.2-5.0); BUN 50 mg/dL (7-18); BUN/Creat Ratio 36.2 RATIO (10-20); Calcium,Total 8.8 mg/dL (8.5-10.1); Chloride 113 mmol/L (98-107); Creatinine, Serum 1.38 mg/dL (0.55-1.02); EST Glomerular Filtration Rate 39 mL/min (>60); Est Glom Filt Rate - Afr Amer 47 mL/min (>60); Glucose 104 mg/dL (74-106); Phosphorus 3.5 mg/dL (2.5-4.9); Potassium 4.6 mmol/L (3.5-5.1); Sodium Level 142 mmol/L (136-145)
== END | disposition home or self-care (01) ==
LOC: POLAB3 11:15
PROVIDERS: PCP Family Medicine; Visit Provider Internal Medicine Nephrology
DX: N18.32 Chronic kidney disease, stage 3b (principal); N39.0 Urinary tract infection, site not specified
CPT/HCPCS: 36415; 80069; 87086; 87088

== ENCOUNTER → 2022-05-14 | Outpatient (CLI) | payer MEDICARE, OTHER, SELFPAY ==
[2022-05-14 13:07] LABS: BUN 46 mg/dL (7-18); Calcium,Total 8.8 mg/dL (8.5-10.1); Chloride 111 mmol/L (98-107); Creatinine, Serum 1.64 mg/dL (0.55-1.02); EST Glomerular Filtration Rate 32 mL/min (>60); Est Glom Filt Rate - Afr Amer 39 mL/min (>60); Glucose 117 mg/dL (74-106); Phosphorus 2.9 mg/dL (2.5-4.9); Potassium 3.7 mmol/L (3.5-5.1); Sodium Level 143 mmol/L (136-145)
== END | disposition home or self-care (01) ==
LOC: POLAB3 10:11
PROVIDERS: PCP Family Medicine; Visit Provider Internal Medicine Nephrology
DX: N18.32 Chronic kidney disease, stage 3b (principal)
CPT/HCPCS: 36415; 80069

== ENCOUNTER → 2022-06-11 | Outpatient (CLI) | payer MEDICARE, OTHER, SELFPAY ==
[2022-06-11 15:23] LABS: Anion Gap 7 (5-15); BUN 32 mg/dL (7-18); BUN/Creat Ratio 26.4 RATIO (10-20); Calcium,Total 8.8 mg/dL (8.5-10.1); Chloride 110 mmol/L (98-107); Creatinine, Serum 1.21 mg/dL (0.55-1.02); EST Glomerular Filtration Rate 46 mL/min (>60); Est Glom Filt Rate - Afr Amer 55 mL/min (>60); Glucose 105 mg/dL (74-106); Potassium 4.1 mmol/L (3.5-5.1); Sodium Level 142 mmol/L (136-145)
== END | disposition home or self-care (01) ==
LOC: LAB 13:42
PROVIDERS: PCP Family Medicine; Referring Provider Internal Medicine Nephrology; Visit Provider Internal Medicine Nephrology
DX: N39.0 Urinary tract infection, site not specified (principal); N18.32 Chronic kidney disease, stage 3b
CPT/HCPCS: 36415; 80048

== ENCOUNTER 2022-08-01 06:58 | Day surgery (SDC) | payer MEDICARE, OTHER, SELFPAY ==
--- NOTE | 2022-07-07 13:48 | PCM.HP.BLA ---
History and Physical Date of Admission: 08/01/22 82-year-old lady with a history of hypertension, obstructive sleep apnea, and a history of COVID in January 2021 who presents today for a heart catheterization.? She denies any chest pain or paroxysmal nocturnal dyspnea.? She however says that on occasion she has some tightness across her chest.? She was placed on isosorbide for this and there has been some improvement but she unfortunately continues to have the discomfort.? She says the tightness appears to be with exertion but goes away with rest.? You remember that she did have some renal dysfunction previously.? ? She has had pedal edema.? You remember that she underwent an echocardiogram in 2018 which demonstrated an ejection fraction of 53%.? She did have a more recent echocardiogram in August of 2021 which demonstrated an ejection fraction of 65% with no wall motion abnormalities present and stage I diastolic dysfunction.? She had been on antihypertensive medication and diuretics.? She was seen by the metal flooring installer and had Lasix dosage adjustments to 80 mg 3 times a week and 40 mg the other days.? She had a recent chemistry profile performed.? And her creatinine has actually improved to 1.2 with a GFR of 46.? She has had no dizziness or diaphoresis no near syncope or syncope.? Her blood pressure has been under good control.? She was initially sent to see us because of her persistent pedal edema. ? She has had no dizziness or diaphoresis no near syncope or syncope.? Her physical exam today demonstrates clear lung webster regular rate and rhythm and moderate pedal edema. Intake Vital Signs: See EMR Visit Reasons:?4 M FU Operating Room Surgical Technician Required: No Accompanied by: None Is patient in pain?: No Allergies cefazolin [From Kefzol] Allergy (Severe, Verified 06/27/22 10:37) hives/difficulty swallowingibuprofen Allergy (Unknown, Verified 06/27/22 10:37) Rashpeanut Allergy (Verified 06/27/22 10:37) AnaphylaxisSulfa (Sulfonamide Antibiotics) Allergy (Verified 06/27/22 10:37) Unknownsulfamethoxazole [From Bactrim] Allergy (Verified 06/27/22 10:37) Othertrimethoprim [From Bactrim] Allergy (Verified 06/27/22 10:37) Other Medications See EMR Ejection fraction %: 65 to 70 PFSH Medical History? (HFpEF) heart failure with preserved ejection fraction Abdominal pain Arthritis Chronic acquired lymphedema Chronic kidney disease Chronic obstructive airway disease with asthma COVID-19 (01/19/21) DVT (deep venous thrombosis) Essential (primary) hypertension GERD (gastroesophageal reflux disease) History of back problems History of pulmonary embolus (PE) Incomplete left bundle branch block Insomnia Morbid obesity with BMI of 45.0-49.9, adult MRSA (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 Obesity Obstructive sleep apnea Swelling of left lower extremity Thyroid disease Surgical History? H/O hemorrhoidectomy History of bilateral knee replacement History of dilatation and curettage History of gastric bypass History of herniorrhaphy History of hysteroscopy History of open reduction and internal fixation (ORIF) procedure Status post debridement Family History? Mother Cancer ?? ? uterine Social History? Smoking Status:? Never smoker alcohol intake:? never substance use type:? does not use caffeine:? Yes Type: coffee Number of servings: 3 ROS Const Const: Positive for fatigue (Decreased energy); Negative for weakness, headache(s), frequent falls, difficulty sleeping or excessive sweating Eyes Eyes: Negative for loss of peripheral vision, transient loss of vision, blurry vision, double vision or tunnel vision ENT ENT: Positive for balance problems; Negative for headache(s), dizziness or Nosebleed/epistaxis Cardio Chest Pain: Yes Frequency: more than once a day Character: other (heaviness) Onset: other (with activity) Location: mid sternal Duration: continuous Palpitations: Yes feels like its: fast Edema: Bilateral Muscle aches with walking: None Resp Respiratory: Positive for SOB with activity, Cough and wheezing; Negative for SOB at rest, SOB orthopnea\SOB lying down or paroxysmal nocturnal dyspnea GI GI: Negative nausea, vomiting, heartburn or black,tarry stools : Negative for hematuria Musc Musc: Positive for joint pain and balance problems; Negative for muscle aches/ myalgia or muscle weakness Skin Skin: Negative non-healing lesions, rash or unusual bruising Neuro Neuro: Negative for dizziness, lightheadedness, near syncope, syncope, frequent falls, headache(s), weakness, blurry vision, double vision or lack of coordination [place] Hematologic/Lymphatic: Negative for easy bleeding or easy bruising Endo Endo: Positive for fatigue (Decreased energy); Negative for excessive sweating or increased thirst/drinking Psych Psych: Negative for anxiety or depression Allergy Allergy/Immunology: Negative for hives and Negative for rash Cardiology Exam Const Appearance: cooperative, healthy appearing, no acute distress, well developed and well groomed Nutritional Appearance: average body habitus and well nourished Orientation: alert, awake and oriented x3 Head Head: normal to inspection, normocephalic and atraumatic Ears: hearing grossly normal bilaterally and external ears normal Nose: external nose normal, nares normal, nasal mucous membranes and turbinates normal, septum normal and no nasal discharge Face and Sinus: face symmetric Mouth: oral mucosae normal, tongue normal, oropharynx normal and moist mucous membranes Teeth and gingiva: dentition normal Throat: posterior oropharynx normal, tonsils normal and uvula midline Eyes General: appearance normal, both eyes and all related structures Eyelids: eyelids normal Conjunctivae: conjunctivae normal Pupils: PERRL, normal by confrontation and accommodation normal EOM: EOM intact bilaterally Neck Neck: normal visual inspection, trachea midline and no JVD JVD: +5 Carotids: normal carotid upstroke and bounding pulses Chest Chest inspection: normal inspection of the chest, symmetric chest movement and normal respiratory effort Auscultation: Bilateral: Clear to Auscultation Cardio Palpation: normal PMI Rate: regular rate Rhythm: regular rhythm Heart sounds: S1 normal, S2 normal and normal, physiologic split S2; Negative rub, gallop or murmur GI GI: normal to inspection, soft, no hepatosplenomegaly and bowel sounds present Neuro General: patient alert, patient awake, patient oriented x3, gait normal, moves all extremities and no focal sensory deficit Skin Skin: no rashes or lesions noted Extremities Pulses: Normal: Right Femoral Pulse, Left Femoral Pulse, Right Dorsalis Pedis Pulse, Left Dorsalis Pedis Pulse, Right Posterior Tibial Pulse, Left Posterior Tibial Pulse, Right Radial Pulse and Left Radial Pulse Lower Extremity Edema: +2: Bilateral Bilaterally deformed lower extremities and lymphedema present Musculoskel Musculoskeletal: No joint tenderness Psych Psychological: normal affect Supplemental Info Supplemental Information ECHOCARDIOGRAM? 08/29/2021 Interpretation Summary Normal LV size. Left ventricular systolic function is normal. The estimated ejection fraction is 65 %. Stage 1 diastolic dysfunction. Pulmonary artery systolic pressure is 34 mmHg. Contrast injection was performed. ? ECHOCARDIOGRAM 04/23/2018 Interpretation Summary Normal LV size. Left ventricular systolic function is lower limits of normal. The estimated ejection fraction is 53 %. Transmitral and pulmonary venous doppler flow suggestive of impaired relaxation of left ventricle Stage 1 diastolic dysfunction. The left atrium is mildly enlarged. Labs: ?? ? LDL Cholesterol 49 mg/dL (0-130) ?? ? HDL Cholesterol 51 mg/dL (40-) ?? ? Triglycerides 312 mg/dL (-199) H Diagnostics: ?? ? Venous Doppler Study ? Pulmonary: ?? ? No Data to Display Past Visits: ?? ? No Data to Display Assessment and Plan Assessment and Plan (1) Essential (primary) hypertension: ?Status:?Chronic ?Plan: Her blood pressure seems to be much better now and my recommendation is to continue the current medical therapy.? Her last echocardiogram had demonstrated an ejection fraction of 65% with stage I diastolic dysfunction. (2) (HFpEF) heart failure with preserved ejection fraction: ?Status:?Chronic ?Plan: She appears to have heart failure with preserved ejection fraction.? We did make adjustments to her diuretics and this appears to have improved her renal function.? No changes to be made at this time (3) Chest pain: ?Status:?Acute ?Plan: During cardiology office appointment in June 2022 her isosorbide was advanced. She will proceed with heart catheterization. Heart catheterization was postponed on account of back procedure with [facility]. At this time, she will proceed with heart catheterization and depending on results, further recommendations be made.
--- NOTE | 2022-07-25 13:07 | RAD_ITS ---
STUDY: X-RAY CHEST REASON FOR EXAM: Female, 82 years old. cad TECHNIQUE: PA and lateral COMPARISON: None. FINDINGS: Less than optimal inspiratory effort is noted. Mild chronic interstitial thickening more pronounced in the lower lobes. The lungs are clear and expanded. There is no demonstrated pleural abnormality. Heart is enlarged.. Normal mediastinum and nataliya. Normal visualized pulmonary arteries. Tortuous calcified aortic arch and descending thoracic aorta. Normal visualized thoracic spine. Normal visualized ribs, clavicles, and shoulders. There is no demonstrated abnormality of the visualized soft tissue structures of the upper abdomen. RAD/Chest PA and Lateral IMPRESSION: ASHD and chronic interstitial thickening more pronounced the lower lobes. Electronically Signed: Brennan Larkin MD at 20:57 EDT ,
[2022-07-25 13:38] LABS: Absolute Lymphocyte Count 1.41 X10^3/uL (0.83-4.51); Absolute Neutrophil Count 4.4 X10^3/uL (2.0-7.7); Basophil# 0.05 X10^3/uL; Basophil% 0.8 % (0-1); Eosinophil# 0.22 X10^3/uL; Eosinophils% 3.4 % (0-5); Hematocrit 41.1 % (37-47); Hemoglobin 12.8 g/dL (12.0-15.0); Lymphocyte # 1.41 X10^3/ul (0.83-4.51); Lymphocyte % 21.7 % (19-41); Mean Corp Hgb Conc 31.1 g/dL (32-36); Mean Corpuscular Hgb 33.8 pg (27.0-32.0); Mean Corpuscular Volume 108.4 fL (81-99); Mean Platelet Vol. 12.8 fl (6.2-12.0); Monocyte% 6.2 % (0-10); NRBC Flagged by Analyzer 0 % (0-5); Neutrophil % 67.6 % (47-70); Platelet Count 219 K/mm3 (150-450); RBC Distribution Width CV 12.8 % (11.6-14.6); RBC Distribution Width SD 51.3 fl (35.1-43.9); Red Blood Count 3.79 M/mm3 (4.2-5.4); White Blood Count 6.5 K/mm3 (4.4-11.0)
[2022-07-25 14:05] LABS: Anion Gap 0 (5-15); BUN 37 mg/dL (7-18); BUN/Creat Ratio 28.7 RATIO (10-20); Calcium,Total 8.8 mg/dL (8.5-10.1); Chloride 110 mmol/L (98-107); Creatinine, Serum 1.29 mg/dL (0.55-1.02); EST Glomerular Filtration Rate 42 mL/min (>60); Est Glom Filt Rate - Afr Amer 51 mL/min (>60); Glucose 92 mg/dL (74-106); Potassium 4.4 mmol/L (3.5-5.1); Sodium Level 139 mmol/L (136-145)
[2022-07-31 07:19] VITALS: BMI 56.5
--- NOTE | 2022-07-31 09:41 | PCM.HP.BLA ---
History and Physical Date of Admission: 08/01/22 This is an 82-year-old lady who presents for a cardiac catheterization today. She has a history of hypertension, obstructive sleep apnea, and a history of COVID in January 2021. She was previously seen for an evaluation of her pedal edema and shortness of breath.? She denies any chest pain or paroxysmal nocturnal dyspnea.? She however says that on occasion she has some tightness across her chest.? She was placed on isosorbide for this and there has been some improvement but she unfortunately continues to have the discomfort.? She says the tightness appears to be with exertion but goes away with rest.? You remember that she did have some renal dysfunction previously.? ? She has had pedal edema.? You remember that she underwent an echocardiogram in 2018 which demonstrated an ejection fraction of 53%.? She did have a more recent echocardiogram in August of 2021 which demonstrated an ejection fraction of 65% with no wall motion abnormalities present and stage I diastolic dysfunction.? She had been on antihypertensive medication and diuretics.? She was seen by the practice office associate and had Lasix dosage adjustments to 80 mg 3 times a week and 40 mg the other days.? She had a recent chemistry profile performed.? And her creatinine has actually improved to 1.2 with a GFR of 46.? She has had no dizziness or diaphoresis no near syncope or syncope.? Her blood pressure has been under good control.? She was initially sent to see us because of her persistent pedal edema. ? She has had no dizziness or diaphoresis no near syncope or syncope.? Intake Vital Signs: See EMR Allergies See EMR Medications See EMR Ejection fraction %: 65 to 70 [facility] Medical History? (HFpEF) heart failure with preserved ejection fraction Abdominal pain Arthritis Chronic acquired lymphedema Chronic kidney disease Chronic obstructive airway disease with asthma COVID-19 (01/19/21) DVT (deep venous thrombosis) Essential (primary) hypertension GERD (gastroesophageal reflux disease) History of back problems History of pulmonary embolus (PE) Incomplete left bundle branch block Insomnia Morbid obesity with BMI of 45.0-49.9, adult MRSA (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 Obesity Obstructive sleep apnea Swelling of left lower extremity Thyroid disease Surgical History? H/O hemorrhoidectomy History of bilateral knee replacement History of dilatation and curettage History of gastric bypass History of herniorrhaphy History of hysteroscopy History of open reduction and internal fixation (ORIF) procedure Status post debridement Family History? Mother Cancer ?? ? uterine Social History? Smoking Status:? Never smoker alcohol intake:? never substance use type:? does not use caffeine:? Yes Type: coffee Number of servings: 3 ROS Const Const: Positive for fatigue (Decreased energy); Negative for weakness, headache(s), frequent falls, difficulty sleeping or excessive sweating Eyes Eyes: Negative for loss of peripheral vision, transient loss of vision, blurry vision, double vision or tunnel vision ENT ENT: Positive for balance problems; Negative for headache(s), dizziness or Nosebleed/epistaxis Cardio Chest Pain: Yes Frequency: more than once a day Character: other (heaviness) Onset: other (with activity) Location: mid sternal Duration: continuous Palpitations: Yes feels like its: fast Edema: Bilateral Muscle aches with walking: None Resp Respiratory: Positive for SOB with activity, Cough and wheezing; Negative for SOB at rest, SOB orthopnea\SOB lying down or paroxysmal nocturnal dyspnea GI GI: Negative nausea, vomiting, heartburn or black,tarry stools : Negative for hematuria Musc Musc: Positive for joint pain and balance problems; Negative for muscle aches/ myalgia or muscle weakness Skin Skin: Negative non-healing lesions, rash or unusual bruising Neuro Neuro: Negative for dizziness, lightheadedness, near syncope, syncope, frequent falls, headache(s), weakness, blurry vision, double vision or lack of coordination [place] Hematologic/Lymphatic: Negative for easy bleeding or easy bruising Endo Endo: Positive for fatigue (Decreased energy); Negative for excessive sweating or increased thirst/drinking Psych Psych: Negative for anxiety or depression Allergy Allergy/Immunology: Negative for hives and Negative for rash Cardiology Exam Const Appearance: cooperative, healthy appearing, no acute distress, well developed and well groomed Nutritional Appearance: average body habitus and well nourished Orientation: alert, awake and oriented x3 Head Head: normal to inspection, normocephalic and atraumatic Ears: hearing grossly normal bilaterally and external ears normal Nose: external nose normal, nares normal, nasal mucous membranes and turbinates normal, septum normal and no nasal discharge Face and Sinus: face symmetric Mouth: oral mucosae normal, tongue normal, oropharynx normal and moist mucous membranes Teeth and gingiva: dentition normal Throat: posterior oropharynx normal, tonsils normal and uvula midline Eyes General: appearance normal, both eyes and all related structures Eyelids: eyelids normal Conjunctivae: conjunctivae normal Pupils: PERRL, normal by confrontation and accommodation normal EOM: EOM intact bilaterally Neck Neck: normal visual inspection, trachea midline and no JVD JVD: +5 Carotids: normal carotid upstroke and bounding pulses Chest Chest inspection: normal inspection of the chest, symmetric chest movement and normal respiratory effort Auscultation: Bilateral: Clear to Auscultation Cardio Palpation: normal PMI Rate: regular rate Rhythm: regular rhythm Heart sounds: S1 normal, S2 normal and normal, physiologic split S2; Negative rub, gallop or murmur GI GI: normal to inspection, soft, no hepatosplenomegaly and bowel sounds present Neuro General: patient alert, patient awake, patient oriented x3, gait normal, moves all extremities and no focal sensory deficit Skin Skin: no rashes or lesions noted Extremities Pulses: Normal: Right Femoral Pulse, Left Femoral Pulse, Right Dorsalis Pedis Pulse, Left Dorsalis Pedis Pulse, Right Posterior Tibial Pulse, Left Posterior Tibial Pulse, Right Radial Pulse and Left Radial Pulse Lower Extremity Edema: +2: Bilateral Bilaterally deformed lower extremities and lymphedema present Musculoskel Musculoskeletal: No joint tenderness Psych Psychological: normal affect Supplemental Info Supplemental Information ECHOCARDIOGRAM? 08/29/2021 Interpretation Summary Normal LV size. Left ventricular systolic function is normal. The estimated ejection fraction is 65 %. Stage 1 diastolic dysfunction. Pulmonary artery systolic pressure is 34 mmHg. Contrast injection was performed. ? ECHOCARDIOGRAM 04/23/2018 Interpretation Summary Normal LV size. Left ventricular systolic function is lower limits of normal. The estimated ejection fraction is 53 %. Transmitral and pulmonary venous doppler flow suggestive of impaired relaxation of left ventricle Stage 1 diastolic dysfunction. The left atrium is mildly enlarged. Labs: ?? ? LDL Cholesterol 49 mg/dL (0-130) ?? ? HDL Cholesterol 51 mg/dL (40-) ?? ? Triglycerides 312 mg/dL (-199) H Assessment and Plan Assessment and Plan (1) Essential (primary) hypertension: ?Status:?Chronic ?Plan: Her blood pressure seems to be much better now and my recommendation is to continue the current medical therapy.? Her last echocardiogram had demonstrated an ejection fraction of 65% with stage I diastolic dysfunction. (2) (HFpEF) heart failure with preserved ejection fraction: ?Status:?Chronic ?Plan: She appears to have heart failure with preserved ejection fraction.? We did make adjustments to her diuretics and this appears to have improved her renal function.? No changes to be made at this time (3) Chest pain: ?Status:?Acute ?Plan: She does have chest discomfort which is suggestive of angina which appears to be stable at this time.? She remains on the metoprolol and I would like to increase her isosorbide to 30 mg twice a day.? She will also have sublingual nitroglycerin and aspirin.? I have discussed with her that she does need a left heart catheterization ideally.? She will proceed with a left heart catheterization, depending on results, further recommendations will be made.
--- NOTE | 2022-08-01 11:17 | CL.D_ITS ---
Patient Name: MARI LOPEZ Study Date: 08/01/2022 Performing: Norberto Jackson MD Ht: 61 inches 154.94 cm : 1940 Wt: 298.99 lbs 135.62 kg Age: 82 Gender: female BSA: 2.24 PROCEDURE(S) PERFORMED [id number] CLINICAL PROFILE AND INDICATIONS Indications: Suspected CAD Heart Failure: None CONCLUSIONS Non obstructive coronary arteries Hypertension RECOMMENDATIONS Medical therapy DESCRIPTION OF PROCEDURE The patient arrived to the procedure lab. The risks and benefits of the procedure as well as a full description of our services here and current unavailability of surgical backup were fully explained to the patient and/or their significant other prior to the catheterization. The Timeout was completed, verifying the correct patient and procedure. The patient's procedural site was prepped and draped in the usual fashion. Local anesthetic was given subcutaneously to right groin region with Lidocaine 2%. Local anesthetic was given subcutaneously to right radial region with Lidocaine 2%. Using a modified Seldinger technique, arterial access was obtained via the right radial artery, a 6Fr sheath was inserted. Venous access was obtained via the right femoral vein, a 4Fr sheath was inserted Right Coronary Artery selective angiography was then performed in multiple views using a 5 Fr. 4.0 Lorimor catheter. Left Coronary Artery selective angiography was performed in multiple views using a 5 Fr. 4.0 Lorimor catheter.The arterial sheath was pulled and a TR Band was applied for hemostasis. The venous sheath was then left in to be pulled in the holding area. Opsite placed. CORONARY ANGIOGRAPHY DOMINANCE: Right Dominant LEFT HEART ASSESSMENT Left Ventricular Ejection Fraction: by Echo 65 % Normal LV wall motion Normal Left Ventricular systolic function LEFT MAIN: Distal 30 % LEFT ANTERIOR DESCENDING ARTERY: No significant disease noted CIRCUMFLEX ARTERY: No significant disease noted RIGHT CORONARY ARTERY: Angiographically normal COMPLICATIONS No Complications PROCEDURE MEDICATIONS Versed 1 mg IV Fentanyl 50 mcg IV Versed 1 mg IV Baby Aspirin (81mg) 1 Tabs PO @ 08/01/2022 08:30:13 Heparin given IA 08/01/2022 08:50:46 Verapamil 2.5mg, Ntg 100mcgs, 3000 units of Heparin given IA 08/01/2022 08:50:46 SUMMARY OF HEMODYNAMIC DATA Time AIR REST ECG 07:33:35 ECG 08:27:54 AO 135/67 (94) SA 08:55:01 Signed By Norberto Jackson MD On 08/01/2022 11:16:32 Norberto Jackson MD
== END 2022-08-01 12:20 | disposition home or self-care (01) ==
LOC: CLSP 07:01
PROVIDERS: PCP Family Medicine; Referring Provider Internal Medicine Cardiovascular Disease; Visit Provider Internal Medicine Cardiovascular Disease
DX: R07.89 Other chest pain (principal); I11.0 Hypertensive heart disease with heart failure; I50.32 Chronic diastolic (congestive) heart failure; R06.2 Wheezing; R06.02 Shortness of breath; G47.33 Obstructive sleep apnea (adult) (pediatric); Z86.16 Personal history of COVID-19
CPT/HCPCS: 36415; 71046; 80048; 85025; 93454; 99152; 99153; J7040; C1769; C1894; Q9967

== ENCOUNTER → 2022-10-15 | Outpatient (CLI) | payer MEDICARE, OTHER, SELFPAY ==
[2022-10-15 12:19] LABS: Albumin, Serum 3.1 g/dL (3.2-5.0); BUN 36 mg/dL (7-18); BUN/Creat Ratio 25.4 RATIO (10-20); Calcium,Total 8.4 mg/dL (8.5-10.1); Chloride 110 mmol/L (98-107); Creatinine, Serum 1.42 mg/dL (0.55-1.02); EST Glomerular Filtration Rate 38 mL/min (>60); Est Glom Filt Rate - Afr Amer 46 mL/min (>60); Glucose 83 mg/dL (74-106); Phosphorus 4.2 mg/dL (2.5-4.9); Potassium 4.2 mmol/L (3.5-5.1); Sodium Level 141 mmol/L (136-145)
== END | disposition home or self-care (01) ==
LOC: POLAB3 11:27
PROVIDERS: PCP Family Medicine; Visit Provider Family Medicine Geriatric Medicine
DX: N17.9 Acute kidney failure, unspecified (principal)
CPT/HCPCS: 36415; 80069

== ENCOUNTER 2023-06-07 19:08 | Inpatient (IN) | payer MEDICARE, OTHER, SELFPAY ==
[2023-06-07 19:09] VITALS: BP 148/93; PULSE 92; RESP 15; TEMP 36.7; O2SAT 97; BMI 38.4
--- NOTE | 2023-06-07 19:26 | EX.ED.DYSGE1 ---
HPI <MIA Hodge - Last Filed: 06/07/23 21:37> History of Present Illness Chief Complaint: Abd Pain Narrative Narrative: 82-year-old female with PMH of HTN, cholecystectomy, gastric bypass in 2004 states normally she has daily bowel movements but over the last few months has had problems with constipation. She has not had a BM for 3 days. She is not passing gas. No nausea or vomiting. She ate cereal and a banana this morning and felt fine. She took a laxative and used enemas and only a small stringy amount of stool came out. Around noon she started developing abdominal pain and distention which has progressively worsened throughout the day. No history of obstruction. PFSH <MIA Hodge - Last Filed: 06/07/23 21:37> PFSH Medical History (HFpEF) heart failure with preserved ejection fraction Abdominal pain Arthritis Chronic acquired lymphedema Chronic kidney disease Chronic obstructive airway disease with asthma COVID-19 (01/19/21) DVT (deep venous thrombosis) Essential (primary) hypertension GERD (gastroesophageal reflux disease) History of back problems History of pulmonary embolus (PE) Incomplete left bundle branch block Insomnia Morbid obesity with BMI of 45.0-49.9, adult MRSA (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 Obesity Obstructive sleep apnea Spinal cord stimulator status Swelling of left lower extremity Thyroid disease Home Medications omeprazole 20 mg capsule,delayed release 20 mg PO DAILY 11/13/17 [History Last Taken 01/07/18 08:30] zinc 50 mg tablet 50 mg PO DAILY 02/09/18 [History Last Taken Unknown] glucosamine 500 iv-tsvujdqhe-phmubgil comp 400 mg-D3 667 unit-C-Mn cap 1 cap PO TID 10/17/19 [History Last Taken Unknown] hydrocortisone-pramoxine 2.5 %-1 % (4g) rectal cream 1 applic [place] BID 10/17/19 [History Last Taken Unknown] zolpidem 10 mg tablet 10 mg PO QHS SLEEP 01/09/21 [History Last Taken Unknown] calcium acetate(phosphat bind) 667 mg capsule 667 mg PO TID 07/25/21 [History Last Taken Unknown] calcium carbonate 600 mg-vitamin D3 10 mcg (400 unit) capsule 1 cap PO BID 07/25/21 [History Last Taken Unknown] cholecalciferol (vitamin D3) 25 mcg (1,000 unit) capsule 50 mcg PO DAILY 07/25/21 [History Last Taken Unknown] cyclobenzaprine 10 mg tablet 10 mg PO BID PRN Muscle Spasm 07/25/21 [History Last Taken Unknown] levonorgestrel 21 mcg/24 hours (8 yrs) 52 mg intrauterine device (Mirena) 1 mcg intrauterine ONCE 07/25/21 [History Last Taken Unknown] levothyroxine 125 mcg tablet 125 mcg PO DAILY 07/25/21 [History Last Taken Unknown] vitamin B complex 1 cap PO DAILY 07/25/21 [History Last Taken Unknown] vitamin E mixed 400 unit capsule 400 unit PO DAILY 07/25/21 [History Last Taken Unknown] ascorbate calcium (vitamin C) 500 mg tablet 500 mg PO DAILY 12/19/21 [History Last Taken Unknown] pyridoxine (vitamin B6) 100 mg tablet (Vitamin B-6) 100 mg PO DAILY 12/19/21 [History Last Taken Unknown] acetaminophen 500 mg tablet 1,000 mg PO BID 06/27/22 [History Last Taken Unknown] gabapentin 300 mg capsule 300 mg PO TID 06/27/22 [History Last Taken Unknown] magnesium oxide 200 mg PO DAILY 06/27/22 [History Last Taken Unknown] multivitamin 1 tab PO DAILY 06/27/22 [History Last Taken Unknown] nitroglycerin 0.4 mg sublingual tablet 0.4 mg sublingual Q5M PRN chest pain #30 tabs 06/27/22 [Rx Last Taken Unknown] aspirin 81 mg tablet,delayed release (Adult Aspirin Regimen) 81 mg PO DAILY 07/11/22 [History Last Taken 08/01/22] furosemide 20 mg tablet (Lasix) 20 mg PO DAILY #90 tabs 10/03/22 [Rx Last Taken Unknown] lisinopril 10 mg tablet 10 mg PO DAILY 06/07/23 [History Last Taken Unknown] vibegron 75 mg tablet (Gemtesa) 75 mg PO DAILY 06/07/23 [History Last Taken Unknown] Allergy/AdvReac Type Severity Reaction Status Date / Time cefazolin [From [facility]] Allergy Severe hives/difficulty Verified 10/03/22 10:07 swallowing ibuprofen Allergy Unknown Rash Verified 10/03/22 10:07 peanut Allergy Anaphylaxis Verified 10/03/22 10:07 Sulfa (Sulfonamide Allergy Unknown Verified 10/03/22 10:07 Antibiotics) sulfamethoxazole Allergy Other Verified 10/03/22 10:07 [From Bactrim] trimethoprim [From Bactrim] Allergy Other Verified 10/03/22 10:07 Family History Mother Cancer uterine Surgical History H/O hemorrhoidectomy History of bilateral knee replacement History of dilatation and curettage History of gastric bypass History of herniorrhaphy History of hysteroscopy History of left heart catheterization (08/01/22) History of open reduction and internal fixation (ORIF) procedure Status post debridement Social History Smoking Status: Never smoker alcohol intake: never substance use type: does not use caffeine: Yes Type: coffee Number of servings: 3 ROS <MIA Hodge - Last Filed: 06/07/23 21:37> ROS ED ROS Narrative Constitutional: Negative for fever, chills. GI: Positive for abdominal pain, nausea, constipation. No vomiting. : Negative for dysuria, hematuria or frequency. EXAM <MIA Hodge - Last Filed: 06/07/23 21:37> Physical Exam Narrative Exam Narrative: CONST: Patient sitting in no acute distress. EYES: Normal inspection. NECK: Normal inspection. RESP: No respiratory distress, CTAB. CVS: Regular rate and rhythm, no murmur, no gallop. ABD: Old healed surgical scars. Distended abdomen, firm with maximal tenderness on left side. No guarding or rebound. SKIN: Color normal, no rash, warm, dry, intact. EXTREMITIES: Normal appearance, no pedal edema. NEURO: Oriented x4. PSYCH: Normal affect. Const Vital Signs: 06/07/23 19:09 06/07/23 21:34 06/07/23 21:34 Temperature 98.1 F 97.4 F L 97.5 F L Temperature Source Temporal Oral Oral Pulse Rate 92 76 75 Respiratory Rate 15 19 H 19 H Blood Pressure 148/93 H 138/80 H 138/80 H Blood Pressure Mean 111 99 99 Pulse Ox 97 96 98 Oxygen Delivery Method Room Air Room Air Room Air <Dr. Judson Toney DO - Last Filed: 06/07/23 23:43> Physical Exam Const Vital Signs: 06/07/23 19:09 06/07/23 21:34 06/07/23 21:34 Temperature 98.1 F 97.4 F L 97.5 F L Temperature Source Temporal Oral Oral Pulse Rate 92 76 75 Respiratory Rate 15 19 H 19 H Blood Pressure 148/93 H 138/80 H 138/80 H Blood Pressure Mean 111 99 99 Pulse Ox 97 96 98 Oxygen Delivery Method Room Air Room Air Room Air MDM <MIA Hodge - Last Filed: 06/07/23 21:37> [facility] Narrative Medical decision making narrative: Differential: Constipation, obstruction, diverticulitis Patient has history of remote gastric bypass in 2004. Reports 3 days of constipation and gradual onset abdominal pain and distention that started around noon today. No vomiting. She appears uncomfortable but nontoxic. Vital signs stable. Normal cardiopulmonary exam. Abdomen is moderately distended and firm. Tender over the left side. No peritonitis. There was a delay in blood work due to inability to place IV access. Plan will be for labs and CT scan with oral and IV contrast. Lab Data Labs: Laboratory Results - last 24 hr 06/07/23 21:25 WBC 8.1 RBC 3.83 L Hgb 12.6 Hct 41.1 MCV 107.3 H MCH 32.9 H MCHC 30.7 L RDW Std Deviation 54.8 H RDW Coeff of Parris 13.7 Plt Count 248 MPV 12.5 H Immature Gran % (Auto) 0.200 Neut % (Auto) 74.9 H Lymph % (Auto) 14.2 L [place] % (Auto) 5.8 Eos % (Auto) 3.9 Baso % (Auto) 1.0 Absolute Neuts (auto) 6.0 Absolute Lymphs (auto) 1.14 Nucleated RBC % 0 Sodium 139 Potassium 4.6 Chloride 112 H Carbon Dioxide 20.0 L Anion Gap 7 BUN 87 H Creatinine 2.42 H Estim Creat Clear Calc 19.95 Est GFR (MDRD) Af Amer 25 L Est GFR (MDRD) Non-Af 20 L BUN/Creatinine Ratio 36.0 H Glucose 102 Calcium 9.3 Total Bilirubin 0.40 AST 23 ALT 23 Alkaline Phosphatase 82 Total Protein 7.6 Albumin 3.7 Globulin 3.9 Albumin/Globulin Ratio 0.9 Radiography Diagnostic Testing: Clinical Impression(s) from Imaging Studies Abdomen CT 06/07/23 19:29 IMPRESSION: 1. Suspect constipation with possible fecal impaction and moderate dilatation of the remainder of the colon. 2. Tiny nonobstructing left renal stone. Electronically Signed: Jae Carty MD at 23:06 EST , <Dr. Judson Toney, DO - Last Filed: 06/07/23 23:43> [facility] Narrative Medical decision making narrative: Differential: Constipation, obstruction, diverticulitis Patient has history of remote gastric bypass in 2004. Reports 3 days of constipation and gradual onset abdominal pain and distention that started around noon today. No vomiting. She appears uncomfortable but nontoxic. Vital signs stable. Normal cardiopulmonary exam. Abdomen is moderately distended and firm. Tender over the left side. No peritonitis. There was a delay in blood work due to inability to place IV access. Plan will be for labs and CT scan with oral and IV contrast. CT scan of the abdomen pelvis revealed evidence of stool impaction. No definitive SBO. On reevaluation after morphine then 0.5 mg of dilaudid patient reported improved pain. She reports went to the bathroom and had a bowel movement. She states this does not feel complete she is feels like she could still go a little bit . I did speak with the general surgeon on-call Dr. Thrasher who reviewed the patient's imaging and recommended using suppositories/enemas and admitting to medicine for observation. Pt was resuscited with 2L of NS. Given the patient's acute kidney injury, evidence of fecal impaction and constipation we will admit the patient to [facility] as a full admit. Discussed with Dr. Matthews. ED attending note: I evaluated the patient in conjunction with the VINNY. I agree with his/her statements and above findings. I have personally performed a face to face assessment of the patient and have reviewed the VINNY Note. I performed a substantive portion of the visit including all aspects of the following. I personally saw the patient performed chart review, physical exam, reviewed labs, imaging (if obtained), and formulated a treatment and management plan. This note was generated with [employer] dictation software. It may contain incorrect words, spelling, and punctuation that were not noted in review of the chart prior to signing. Lab Data Labs: Laboratory Results - last 24 hr 06/07/23 21:25 WBC 8.1 RBC 3.83 L Hgb 12.6 Hct 41.1 MCV 107.3 H MCH 32.9 H MCHC 30.7 L RDW Std Deviation 54.8 H RDW Coeff of Parris 13.7 Plt Count 248 MPV 12.5 H Immature Gran % (Auto) 0.200 Neut % (Auto) 74.9 H Lymph % (Auto) 14.2 L [place] % (Auto) 5.8 Eos % (Auto) 3.9 Baso % (Auto) 1.0 Absolute Neuts (auto) 6.0 Absolute Lymphs (auto) 1.14 Nucleated RBC % 0 Sodium 139 Potassium 4.6 Chloride 112 H Carbon Dioxide 20.0 L Anion Gap 7 BUN 87 H Creatinine 2.42 H Estim Creat Clear Calc 19.95 Est GFR (MDRD) Af Amer 25 L Est GFR (MDRD) Non-Af 20 L BUN/Creatinine Ratio 36.0 H Glucose 102 Calcium 9.3 Total Bilirubin 0.40 AST 23 ALT 23 Alkaline Phosphatase 82 Total Protein 7.6 Albumin 3.7 Globulin 3.9 Albumin/Globulin Ratio 0.9 Radiography Diagnostic Testing: Clinical Impression(s) from Imaging Studies Abdomen CT 06/07/23 19:29 IMPRESSION: 1. Suspect constipation with possible fecal impaction and moderate dilatation of the remainder of the colon. 2. Tiny nonobstructing left renal stone. Electronically Signed: Jae Carty MD at 23:06 EST , Discharge Plan Triage Chief Complaint: Abd Pain ED Midlevel Provider: Josie Delacruz ED Provider: Judson Toney Dx/Rx/DC Orders Clinical Impression: Acute kidney injury superimposed on chronic kidney disease, Constipation Prescriptions: No Action zinc 50 mg tablet 50 mg PO DAILY glucosamine 500 hy-phvkemcbh-seesqzqj comp 400 mg-D3 667 unit-C-Mn cap 500-400-667 mg-mg-unit capsule 1 cap PO TID hydrocortisone-pramoxine 2.5-1 % (4g) cream 1 applic [place] BID levothyroxine 125 mcg tablet 125 mcg PO DAILY Patient Comments: TAKE 1 TABLET BY MOUTH ONCE DAILY. TAKE ON EMPTY STOMACH. FOR THYROID. cyclobenzaprine 10 mg tablet 10 mg PO BID PRN (Reason: Muscle Spasm) calcium carbonate-vitamin D3 600 mg-10 mcg (400 unit) capsule 1 cap PO BID vitamin B complex Capsule 1 cap PO DAILY calcium acetate(phosphat bind) 667 mg capsule 667 mg PO TID cholecalciferol (vitamin D3) 25 mcg (1,000 unit) capsule 50 mcg PO DAILY vitamin E mixed 400 unit capsule 400 unit PO DAILY Mirena 20 mcg/24 hours (7 yrs) 52 mg intrauterine device 1 mcg intrauterine ONCE pyridoxine (vitamin B6) [Vitamin B-6] 100 mg tablet 100 mg PO DAILY ascorbate calcium (vitamin C) 500 mg tablet 500 mg PO DAILY acetaminophen 500 mg tablet 1,000 mg PO BID multivitamin Tablet 1 tab PO DAILY gabapentin 300 mg capsule 300 mg PO TID Patient Comments: TAKE ONE PILL BY MOUTH 3 TIMES PER DAY magnesium oxide 200 mg magnesium tablet 200 mg PO DAILY nitroglycerin 0.4 mg tablet, sublingual 0.4 mg sublingual Q5M PRN (Reason: chest pain) Qty: 30 1RF Rx Instructions: do not exceed 3 doses per episode furosemide [Lasix] 20 mg tablet 20 mg PO DAILY Qty: 90 3RF omeprazole 20 MG capsule 20 mg PO DAILY zolpidem 10 mg tablet 10 mg PO QHS Gemtesa 75 mg tablet 75 mg PO DAILY Patient Comments: TAKE 1 TABLET BY MOUTH EVERY DAY lisinopril 10 mg tablet 10 mg PO DAILY Patient Comments: per patient aspirin [Adult Aspirin Regimen] 81 mg tablet,delayed release (DR/EC) 81 mg PO DAILY Primary Care Provider: Miryam Wells Referrals: Marko Capone MD [Non-Staff] -
--- NOTE | 2023-06-07 19:29 | CT_ITS ---
STUDY: CT ABDOMEN AND PELVIS WITHOUT CONTRAST REASON FOR EXAM: Female, 82 years old. pain -- IV PO Contrast RADIATION DOSAGE (If Supplied By Facility): CTDIvol = ( 21.18 ) mGy, DLP = ( 1037.29 ) mGycm TECHNIQUE: Transaxial images were obtained from the dome of the diaphragm to the symphysis pubis without oral contrast, and without intravenous contrast. Sagittal and coronal images were reconstructed. Individualized dose optimization techniques were used for this CT. COMPARISON: 10/25/2019 FINDINGS: The visualized lung bases are unremarkable. Cardiomegaly. Normal liver. There are surgical clips in the gallbladder fossa consistent with a prior cholecystectomy. Normal spleen. Normal pancreas. Normal bilateral adrenal glands. Normal right kidney. Tiny (1 to 2 mm) nonobstructing stone in the midsection left kidney. No hydronephrosis, ureteral stone, ureteral dilatation. Status post gastric surgery, possibly gastric bypass. Normal small intestine. Large amount of stool throughout the colon suggestive of constipation. A large amount of compacted stool within the rectum possibly consistent with a fecal impaction. The appendix is visualized and appears normal. There is diffuse atherosclerotic calcification of the abdominal aorta, without a demonstrated aneurysm. Normal inferior vena cava. Normal retroperitoneum. Normal urinary bladder. Intrauterine device within the uterus. Normal abdominal wall. Mild levoscoliosis lumbar spine with degenerative disc disease. Bilateral hip arthrosis. CT/Abdomen/Pel W ORAL Cont Only IMPRESSION: 1. Suspect constipation with possible fecal impaction and moderate dilatation of the remainder of the colon. 2. Tiny nonobstructing left renal stone. Electronically Signed: Jae Carty MD at 23:06 EST ,
--- OUTSIDE RECORDS SUMMARY | 2023-06-07 19:45 | XMS RPT_ITS | CCD ---
Author Name Unknown Address [address] [place] [address] Organization [facility] Care Team Providers Care [employer] Chief [employer] Name Role Phone Lizy Capone MD Primary Care Provider MIRYAM WELLS Referring Unavailable LIZY CAPONE Primary Care Unavailable MIRYAM WELLS Attending Unavailable LIZY CAPONE Primary Care Unavailable LIZY CAPONE Primary Care Unavailable ROQUE JACKSON Referring Unavailable LIZY CAPONE Primary Care Unavailable JUD GOMES Attending Unavailable MIRYAM WELLS Referring Unavailable LIZY CAPONE Primary Care Unavailable MIRYAM WELLS Attending Unavailable LIZY CAPONE Primary Care Unavailable LIZY CAPONE Primary Care Unavailable JOSE M, INDU R Referring Unavailabl e MIRYAM WELLS Attending Unavailable LIZY CAPONE Primary Care Unavailable ATHY, LIZ R Referring Unavailable LIZY CAPONE Primary Care Unavailable LIZY CAPONE Primary Care Unavailable MIRYAM WELLS Referring Unavailable LIZY CAPONE Primary Care Unavailable LIZY CAPONE Primary Care Unavailable ROQUE JACKSON Referring Unavailable MIRYAM WELLS Referring Unavailable LIZY CAPONE Primary Care Unavailable MIRYAM WELLS Attending Unavailable LIZY CAPONE Primary Care Unavailable Lizy Capone MD Primary Care Provider [phone] ROQUE JACKSON Attending Unavailable ALINE JACKSONMIT Referring Unavailable LIZY CAPONE Primary Care Unavailable ROQUE JACKSON Attending Unavailable LIZY CAPONE Primary Care Unavailable ROQUE JACKSON Attending Unavailable LIZY CAPONE Primary Care Unavailable LIZY CAPONE Primary Care Unavailable REBEKAH ALEXANDER Attending Unavailab le LIZY CAPONE Primary Care Unavailable JACKSON ROQUE Referring Unavailable JACKSON, ROQUE Attending Unavailable LIZY CAPONE Primary Care Unavailable JACKSON, ROQUE Attending Unavailable LIZY CAPONE Primary Care Unavailable REBEKAH ALEXANDER Attending Unavailab le JACKSON, ROQUE Attending Unavailable LIZY CAPONE Primary Care Unavailable AJCKSON, ROQUE Referring Unavailable JACKSON, ROQUE Attending Unavailable LIZY CAPONE Primary Care Unavailable JACKSON, ROQUE Attending Unavailable LIZY CAPONE Primary Care Unavailable JACKSON, ROQUE Attending Unavailable LIZY CAPONE Primary Care Unavailable JACKSON, ROQUE Attending Unavailable LIZY CAPONE Primary Care Unavailable Allergies Allergy Classification Reported Allergen(s) Allergy Type Date of Onset Reaction(s) Facility (20 sources) Aspirin; Translations: [ASPIRIN] Drug Allergy 11-15-19 09 Intolerance [facility] (20 sources) ceFAZolin; Translations: [CEFAZOLIN SODIUM] Drug Allergy 08-10-19 19 [facility] (20 sources) Ibuprofen; Translations: [IBUPROFEN] Drug Allergy 11-08-19 16 Rash [facility] Work Phone: (20 sources) Sulfamethoxazole / Trimethoprim; Translations: [SULFAMETHOXAZOLE-T RIMETHOPRIM] Drug Allergy 07-24-19 17 [facility] (20 sources) Sulfonamides (Antibiotic); Translations: [SULFA (SULFONAMIDE ANTIBIOTICS)] Drug Allergy 07-24-19 17 [facility] (20 sources) Peanut Butter [Other] Propensity to adverse reactions 11-15-19 03 [facility] (6 sources) peanut allergenic extract; Translations: [PEANUT] Drug Allergy 03-31-20 23 Anaphylaxis [facility] Work Phone: (2 sources) OTHER; Translations: [OTHER] Propensity to adverse reactions (disorder) 11-15-19 03 [facility] Repository Medications Current Medications Medication Drug Class(es) Dates Sig (Normalized) Sig (Original) ALPRAZolam 0.5 mg disintegrating oral tablet (2 sources) Benzodiazepine Start: 06-04-2023 End: 06-13-2023 ALPRAZolam 0.5 mg dissolvable tablet Indications: Anxiety due to invasive procedure Bring to office for procedure. Do not take until instructed by clinical staff 2 tablet 0 06/04/2023 06/13/2023 Active Completed/Discontinued Medications Medication Drug Class(es) Dates Sig (Normalized) Sig (Original) acetaminophen 500 mg oral tablet (20 sources) take 2 tablets by mouth twice daily acetaminophen (TYLENOL) 500 mg tablet Take 1,000 mg by mouth twice daily. 0 Active Problems Active Problems Problem Classification Problem Date Documented Da te Episodic/Chronic Acute and unspecified renal failure (20 sources) Renal failure syndrome; Translations: [Unspecified kidney failure] Onset: 05-01-2020 05-01-2020 Chronic Acute bronchitis (1 source) Acute bronchitis, unspecified; Translations: [Acute bronchitis, unspecified organism] Onset: 04-15-2023 Episodic Anxiety disorders (2 sources) Anticipatory anxiety; Translations: [Anxiety disorder, unspecified] Chronic Asthma (20 sources) Unspecified asthma, uncomplicated; Translations: [Asthma, unspecified type, unspecified] Onset: 07-21-2003 07-31-2003 Chronic Chronic kidney disease (20 sources) Anemia; Translations: [Chronic kidney disease, unspecified] Onset: 03-17-2006 02-26-2015 Chronic Chronic kidney disease (1 source) Chronic kidney disease; Translations: [Chronic kidney disease, stage 3b (HCC)] Onset: 05-08-2023 Disorders of lipid metabolism (1 source) Hyperlipidemia, unspecified; Translations: [Hyperlipidemia LDL goal <100] Onset: 04-15-2023 Chronic E Codes: Fall (2 sources) Fall; Translations: [Unspecified fall, initial encounter] Episodic Essential hypertension (20 sources) Benign essential hypertension; Translations: [Essential (primary) hypertension] Onset: 07-21-2003 Chronic Gastrointestinal hemorrhage (1 source) Rectal hemorrhage; Translations: [Hemorrhage of anus and rectum] Episodic Genitourinary symptoms and ill-defined conditions (20 sources) Female stress incontinence; Translations: [Stress incontinence (female) (male)] Onset: 07-12-2008 Chronic Intestinal infection (1 source) Clostridium difficile colitis; Translations: [Enterocolitis due to Clostridium difficile, not specified as recurrent] Episodic Osteoarthritis (20 sources) Primary gonarthrosis, bilateral; Translations: [Bilateral primary osteoarthritis of knee] Onset: 07-21-2003 04-27-2017 Chronic Other connective tissue disease (6 sources) Myofascial pain; Translations: [Myalgia, other site] Episodic Other connective tissue disease (3 sources) Swelling of lower limb; Translations: [Other specified soft tissue disorders] Episodic Other connective tissue disease (2 sources) Rotator cuff impingement syndrome; Translations: [Impingement syndrome of unspecified shoulder] 01-15-2023 Episodic Other connective tissue disease (2 sources) Impingement syndrome of unspecified shoulder; Translations: [Rotator cuff impingement syndrome, unspecified laterality] Onset: 01-15-2023 Episodic Other diseases of kidney and ureters (1 source) Abnormal renal function; Translations: [Disorder of kidney and ureter, unspecified] Episodic Other diseases of veins and lymphatics (20 sources) Lymphedema; Translations: [Lymphedema, not elsewhere classified] Onset: 11-22-2021 Chronic Other female genital disorders (20 sources) Complex atypical endometrial hyperplasia; 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]] Onset: 01-12-2018 01-12-2018 Chronic Other gastrointestinal disorders (1 source) Altered bowel function; Translations: [Other specified symptoms and signs involving the digestive system and abdomen] Episodic Other gastrointestinal disorders (2 sources) Swollen abdomen; Translations: [Abdominal distension (gaseous)] Episodic Other gastrointestinal disorders (2 sources) Stool finding; Translations: [Other fecal abnormalities] Episodic Other lower respiratory disease (2 sources) Dyspnea; Translations: [Shortness of breath] Episodic Other lower respiratory disease (4 sources) Rib pain; Translations: [Pleurodynia] Episodic Other nervous system disorders (2 sources) Chronic pain; Translations: [Other chronic pain] Chronic Other nervous system disorders (4 sources) Other chronic pain; Translations: [Chronic shoulder pain, unspecified laterality] Onset: 07-30-2022 Chronic Other non-traumatic joint disorders (1 source) Pain in left shoulder; Translations: [Pain in joint, shoulder region] 12-22-2022 Episodic Other non-traumatic joint disorders (1 source) Pain in unspecified shoulder; Translations: [Chronic shoulder pain, unspecified laterality] Onset: 04-15-2023 Episodic Other nutritional; endocrine; and metabolic disorders (20 sources) Severe obesity; Translations: [Morbid (severe) obesity due to excess calories] Onset: 06-28-2003 07-12-2021 Chronic Other nutritional; endocrine; and metabolic disorders (1 source) Body mass index (BMI) 40.0-44.9, adult; Translations: [Body mass index (BMI) 40.0-44.9, adult ([facility])] Onset: 07-31-2022 Chronic Other screening for suspected conditions (not mental disorders or infectious disease) (3 sources) Abnormal results of kidney function studies; Translations: [Nonspecific abnormal results of function study of kidney] Onset: 04-15-2023 12-22-2022 Episodic Residual codes; unclassified (20 sources) Sleep apnea; Translations: [Sleep apnea, unspecified] Onset: 07-21-2003 07-31-2003 Chronic Residual codes; unclassified (3 sources) Bilateral lower limb edema; Translations: [Localized edema] Episodic Spondylosis; intervertebral disc disorders; other back problems (20 sources) Lumbar spondylosis; Translations: [Spondylosis without myelopathy or radiculopathy, lumbar region] Onset: 12-25-2021 Chronic Thyroid disorders (20 sources) Acquired hypothyroidism; Translations: [Hypothyroidism, unspecified] Onset: 04-19-2018 Chronic Unclassified (1 source) Acute cough; Translations: [Acute cough] Onset: 03-31-2023 Unclassified (1 source) Chronic right-sided low back pain without sciatica; Translations: [Chronic right-sided low back pain without sciatica] Onset: 09-26-2022 Unclassified (1 source) Chronic bilateral low back pain without sciatica; Translations: [Chronic bilateral low back pain without sciatica] Onset: 07-30-2022 Past or Other Problems Problem Classification Problem Date Documented Da te Episodic/Chronic Abdominal pain (20 sources) Indigestion; Translations: [Epigastric pain] Onset: 11-24-2016 Episodic Fracture of lower limb (2 sources) Closed fracture of base of fifth metatarsal bone ; Translations: [Other physeal fracture of right metatarsal, initial encounter for closed fracture] Onset: 07-31-2022 07-31-2022 Episodic Genitourinary symptoms and ill-defined conditions (2 sources) Dysuria; Translations: [Dysuria] Onset: 06-26-2022 Episodic Other connective tissue disease (20 sources) Disorder of rotator cuff; Translations: [Unspecified rotator cuff tear or rupture of unspecified shoulder, not specified as traumatic] Onset: 02-19-2011 02-19-2011 Episodic Other connective tissue disease (1 source) Other specified soft tissue disorders; Translations: [Leg swelling] Onset: 09-26-2022 Episodic Other connective tissue disease (1 source) Myalgia, other site; Translations: [Myofascial pain] Onset: 07-31-2022 Episodic Other gastrointestinal disorders (1 source) Other fecal abnormalities; Translations: [Change in stool] Onset: 06-26-2022 Episodic Other lower respiratory disease (1 source) Pleurodynia; Translations: [Rib pain] Onset: 07-31-2022 Episodic Other non-traumatic joint disorders (3 sources) Pain in unspecified knee; Translations: [Pain in joint, lower leg] Onset: 09-26-2022 Episodic Residual codes; unclassified (20 sources) Insomnia; Translations: [Insomnia, unspecified] Onset: 07-30-2011 Episodic Residual codes; unclassified (2 sources) Insomnia, unspecified; Translations: [Insomnia, unspecified type] Onset: 07-30-2011 Episodic Spondylosis; intervertebral disc disorders; other back problems (20 sources) Backache; Translations: [Dorsalgia, unspecified] Onset: 10-16-2021 Episodic Results Test Name Value Interpretation Reference Range Facil ity Vital Signs Date Time Vital Sign Value Performing Clinician Faci lity 06-02-2023 07:01-0500 Body height 157.5 cm Rebekah Alexander TIME ANALYSIS CLERK.RECREATION THERAPIST Work Phone: [facility] 06-02-2023 07:01-0500 Body weight 98.88 kg Rebekah Alexander APRN.RECREATION THERAPIST Work Phone: [facility] 05-18-2023 13:33-0500 Diastolic blood pressure 56 mm[Hg] Roque Jackson MD Work Phone: [facility] 05-18-2023 13:33-0500 Heart rate 79 /min Roque Jackson MD Work Phone: [facility] 05-18-2023 13:33-0500 Respiratory rate 18 /min Roque Jackson MD Work Phone: [facility] 05-18-2023 13:33-0500 SaO2% (BldA) [Mass fraction] 97 % Roque Jackson MD Work Phone: [facility] 05-18-2023 13:33-0500 Systolic blood pressure 122 mm[Hg] Roque Jackson MD Work Phone: [facility] 03-02-2023 06:59-0500 Body height 157.5 cm Rebekah Benjamin TIME ANALYSIS CLERK.RECREATION THERAPIST Work Phone: [facility] 03-02-2023 06:59-0500 Body weight 104.33 kg Rebekah Benjamin TIME ANALYSIS CLERK.RECREATION THERAPIST Work Phone: [facility] 02-16-2023 12:02-0500 Diastolic blood pressure 77 mm[Hg] Roque Jackson MD Work Phone: [facility] 02-16-2023 12:02-0500 Heart rate 54 /min Roque Jackson MD Work Phone: [facility] 02-16-2023 12:02-0500 Respiratory rate 17 /min Roque Jackson MD Work Phone: [facility] 02-16-2023 12:02-0500 SaO2% (BldA) [Mass fraction] 99 % Roque Jackson MD Work Phone: [facility] 02-16-2023 12:02-0500 Systolic blood pressure 130 mm[Hg] Roque Jackson MD Work Phone: [facility] 01-15-2023 08:19-0400 Heart rate 71 /min Roque Jackson MD Work Phone: [facility] 01-15-2023 08:19-0400 Respiratory rate 18 /min Roque Jackson MD Work Phone: [facility] 01-15-2023 08:19-0400 SaO2% (BldA) [Mass fraction] 97 % Roque Jackson MD Work Phone: [facility] 12-22-2022 08:51-0400 Body weight 104.33 kg Miryam Wells TIME ANALYSIS CLERK.RECREATION THERAPIST Work Phone: [facility] 12-22-2022 08:51-0400 Diastolic blood pressure 72 mm[Hg] Miryam Wells TIME ANALYSIS CLERK.RECREATION THERAPIST Work Phone: [facility] 12-22-2022 08:51-0400 Heart rate 61 /min Miryam Tannhof TIME ANALYSIS CLERK.RECREATION THERAPIST Work Phone: [facility] 12-22-2022 08:51-0400 Respiratory rate 16 /min Miryam Tannhof TIME ANALYSIS CLERK.RECREATION THERAPIST Work Phone: [facility] 12-22-2022 08:51-0400 SaO2% (BldA) [Mass fraction] 96 % Miryampoonam Kimballhof TIME ANALYSIS CLERK.RECREATION THERAPIST Work Phone: [facility] 12-22-2022 08:51-0400 Systolic blood pressure 112 mm[Hg] Miryam Tannhof TIME ANALYSIS CLERK.RECREATION THERAPIST Work Phone: [facility] 10-16-2022 08:03-0400 Heart rate 79 /min Roque Jackson MD Work Phone: [facility] 10-16-2022 08:03-0400 Respiratory rate 16 /min Roque Jackson MD Work Phone: [facility] 10-16-2022 08:03-0400 SaO2% (BldA) [Mass fraction] 95 % Roque Jackson MD Work Phone: [facility] 10-02-2022 09:55-0400 Heart rate 62 /min Roque Jackson MD Work Phone: [facility] 10-02-2022 09:55-0400 Respiratory rate 17 /min Roque Jackson MD Work Phone: [facility] 10-02-2022 09:55-0400 SaO2% (BldA) [Mass fraction] 97 % Roque Jackson MD Work Phone: [facility] 08-13-2022 15:20-0400 Diastolic blood pressure 81 mm[Hg] Roque Jackson MD Work Phone: [facility] 08-13-2022 15:20-0400 Heart rate 53 /min Roque Jackson MD Work Phone: [facility] 08-13-2022 15:20-0400 Respiratory rate 15 /min Roque Jackson MD Work Phone: [facility] 08-13-2022 15:20-0400 SaO2% (BldA) [Mass fraction] 97 % Roque Jackson MD Work Phone: [facility] 08-13-2022 15:20-0400 Systolic blood pressure 131 mm[Hg] Roque Jackson MD Work Phone: [facility] 07-30-2022 14:35-0400 Diastolic blood pressure 59 mm[Hg] Roque Jackson MD Work Phone: [facility] 07-30-2022 14:35-0400 Heart rate 55 /min Roque Jackson MD Work Phone: [facility] 07-30-2022 14:35-0400 Respiratory rate 16 /min Roque Jackson MD Work Phone: [facility] 07-30-2022 14:35-0400 SaO2% (BldA) [Mass fraction] 100 % Roque Jackson MD Work Phone: [facility] 07-30-2022 14:35-0400 Systolic blood pressure 129 mm[Hg] Roque Jackson MD Work Phone: [facility] 06-30-2022 09:29-0400 Body height 157.5 cm Jud Barley TIME ANALYSIS CLERK.RECREATION THERAPIST Work Phone (unformatted): [phone] [facility] 06-30-2022 09:29-0400 Body weight 135.63 kg Jud Barley TIME ANALYSIS CLERK.RECREATION THERAPIST Work Phone (unformatted): [phone] [facility] 06-30-2022 09:29-0400 Diastolic blood pressure 80 mm[Hg] Jud Barley TIME ANALYSIS CLERK.RECREATION THERAPIST Work Phone (unformatted): [phone] [facility] 06-30-2022 09:29-0400 Heart rate 66 /min Jud Barley TIME ANALYSIS CLERK.RECREATION THERAPIST Work Phone (unformatted): [phone] [facility] 06-30-2022 09:29-0400 Respiratory rate 16 /min Jud Barley TIME ANALYSIS CLERK.RECREATION THERAPIST Work Phone (unformatted): [phone] [facility] 06-30-2022 09:29-0400 SaO2% (BldA) [Mass fraction] 94 % Jud Barley TIME ANALYSIS CLERK.RECREATION THERAPIST Work Phone (unformatted): [phone] [facility] 06-30-2022 09:29-0400 Systolic blood pressure 135 mm[Hg] Jud Barley TIME ANALYSIS CLERK.RECREATION THERAPIST Work Phone (unformatted): [phone] [facility] 06-26-2022 08:54-0400 Body weight 135.63 kg Miryam Kimballhof TIME ANALYSIS CLERK.RECREATION THERAPIST Work Phone: [facility] 06-26-2022 08:54-0400 Diastolic blood pressure 76 mm[Hg] Miryam Tannhof TIME ANALYSIS CLERK.RECREATION THERAPIST Work Phone: [facility] 06-26-2022 08:54-0400 Heart rate 77 /min Miryam Kimballhof TIME ANALYSIS CLERK.RECREATION THERAPIST Work Phone: [facility] 06-26-2022 08:54-0400 Respiratory rate 20 /min Miryam Kimballhof TIME ANALYSIS CLERK.RECREATION THERAPIST Work Phone: [facility] 06-26-2022 08:54-0400 SaO2% (BldA) [Mass fraction] 96 % Miryam Kimballhof TIME ANALYSIS CLERK.RECREATION THERAPIST Work Phone: [facility] 06-26-2022 08:54-0400 Systolic blood pressure 124 mm[Hg] Miryam Kimballhof TIME ANALYSIS CLERK.RECREATION THERAPIST Work Phone: [facility] 05-13-2022 15:21-0500 Body height 157.5 cm Jae Cagle MD Work Phone: [facility] 05-13-2022 15:21-0500 Body temperature 98.01 [degF] Jae Cagle MD Work Phone: [facility] 05-13-2022 15:21-0500 Body weight 129.28 kg Jae Cagle MD Work Phone: [facility] 05-13-2022 15:21-0500 Diastolic blood pressure 58 mm[Hg] Jae Cagle MD Work Phone: [facility] 05-13-2022 15:21-0500 Heart rate 74 /min Jae Cagle MD Work Phone: [facility] 05-13-2022 15:21-0500 SaO2% (BldA) [Mass fraction] 91 % Jae Cagel MD Work Phone: [facility] 05-13-2022 15:21-0500 Systolic blood pressure 108 mm[Hg] Jae Cagle MD Work Phone: [facility] 01-30-2022 15:50-0400 Heart rate 67 /min Roque Jackson MD Work Phone: [facility] 01-30-2022 15:50-0400 Respiratory rate 18 /min Roque Jackson MD Work Phone: [facility] 01-30-2022 15:50-0400 SaO2% (BldA) [Mass fraction] 97 % Roque Jackson MD Work Phone: [facility] 01-08-2022 11:38-0400 Body temperature 97.9 [degF] Roque Jackson MD Work Phone: [facility] 01-08-2022 11:38-0400 Diastolic blood pressure 70 mm[Hg] Roque Jackson MD Work Phone: [facility] 01-08-2022 11:38-0400 Respiratory rate 16 /min Roque Jackson MD Work Phone: [facility] 01-08-2022 11:38-0400 SaO2% (BldA) [Mass fraction] 100 % Roque Jackson MD Work Phone: [facility] 01-08-2022 11:38-0400 Systolic blood pressure 148 mm[Hg] Roque Jackson MD Work Phone: [facility] 01-08-2022 10:36-0400 Heart rate 64 /min Roque Jackson MD Work Phone: [facility] 01-02-2022 07:07-0400 Body weight 119.75 kg Miryam Wells APRN.CNP Work Phone: [facility] 01-02-2022 07:07-0400 Diastolic blood pressure 80 mm[Hg] Miryam Kimballhof TIME ANALYSIS CLERK.RECREATION THERAPIST Work Phone: [facility] 01-02-2022 07:07-0400 Heart rate 61 /min Miryam Kimballhof TIME ANALYSIS CLERK.RECREATION THERAPIST Work Phone: [facility] 01-02-2022 07:07-0400 Respiratory rate 20 /min Miryam Kimballhof TIME ANALYSIS CLERK.RECREATION THERAPIST Work Phone: [facility] 01-02-2022 07:07-0400 SaO2% (BldA) [Mass fraction] 98 % Miryam Kimballhof TIME ANALYSIS CLERK.RECREATION THERAPIST Work Phone: [facility] 01-02-2022 07:07-0400 Systolic blood pressure 138 mm[Hg] Miryam Kimballhof TIME ANALYSIS CLERK.RECREATION THERAPIST Work Phone: [facility] 12-26-2021 14:38-0400 Body height 157.5 cm Avis Españafield TIME ANALYSIS CLERK.RECREATION THERAPIST Work Phone: [facility] 12-26-2021 14:38-0400 Body weight 104.33 kg Avis Españafield TIME ANALYSIS CLERK.RECREATION THERAPIST Work Phone: [facility] 12-25-2021 13:06-0400 Diastolic blood pressure 67 mm[Hg] Roque Jackson MD Work Phone: [facility] 12-25-2021 13:06-0400 Heart rate 57 /min Roque Jackson MD Work Phone: [facility] 12-25-2021 13:06-0400 Respiratory rate 18 /min Roque Jackson MD Work Phone: [facility] 12-25-2021 13:06-0400 SaO2% (BldA) [Mass fraction] 98 % Roque Jackson MD Work Phone: [facility] 12-25-2021 13:06-0400 Systolic blood pressure 142 mm[Hg] Roque Jackson MD Work Phone: [facility] 12-25-2021 13:03-0400 Body temperature 97.7 [degF] Roque Jackson MD Work Phone: [facility] 09-19-2021 09:23-0400 Heart rate 63 /min Avis Marrufo TIME ANALYSIS CLERK.RECREATION THERAPIST Work Phone: [facility] 09-19-2021 09:23-0400 Respiratory rate 18 /min Avis Marrufo TIME ANALYSIS CLERK.RECREATION THERAPIST Work Phone: [facility] 09-19-2021 09:23-0400 SaO2% (BldA) [Mass fraction] 97 % Avis Marrufo TIME ANALYSIS CLERK.RECREATION THERAPIST Work Phone: [facility] 07-16-2021 09:08-0400 Body weight 104.42 kg Lizy Capone MD Work Phone: [facility] 07-16-2021 09:08-0400 Diastolic blood pressure 64 mm[Hg] Lizy Capone MD Work Phone: [facility] 07-16-2021 09:08-0400 Heart rate 72 /min Lizy Capone MD Work Phone: [facility] 07-16-2021 09:08-0400 Respiratory rate 16 /min Lizy Capone MD Work Phone: [facility] 07-16-2021 09:08-0400 Systolic blood pressure 110 mm[Hg] Lizy Capone MD Work Phone: [facility] Encounters Encounter Date Encounter Type Care Provider Facility Start: 06-04-2023 Telephone encounter Rebekah Eduardosekou Alexander TIME ANALYSIS CLERK.RECREATION THERAPIST Work Phone: [facility] Procedures Date Procedure Procedure Detail Performing Clinician Start: 05-18-2023 US OTHER-INJECTION ( POC) DONATO USE ONLY Roque Jackson MD Work Phone: Start: 01-15-2023 End: 01-15-2023 Radex shoulder complete minimum 2 views Roque Jackson MD Work Phone: Start: 04-27-2023 Radex foot complete minimum 3 views Roque Jackson MD Work Phone: Start: 05-13-2022 Radex elbow complete minimum 3 views Jae Cagle MD Work Phone: Start: 04-29-2022 Mri spinal canal tho racic w/o contrast matrl Avis Marrufo TIME ANALYSIS CLERK.RECREATION THERAPIST Work Phone: Start: 01-08-2022 End: 01-08-2022 Njx dx/ther agt pvrt facet jt lmbr/sac 1 level Roque Jackson MD Work Phone: Start: 01-03-2022 Us abdominal real ti me w/image documentation Miryam Wells TIME ANALYSIS CLERK.RECREATION THERAPIST Work Phone: Start: 12-25-2021 End: 12-25-2021 Njx dx/ther agt pvrt facet jt lmbr/sac 1 level Roque Jackson MD Work Phone: Start: 09-20-2021 Radex spine lumbosac ral minimum 4 views Avis Marrufo TIME ANALYSIS CLERK.RECREATION THERAPIST Work Phone: Start: 09-19-2021 Adult depression scr eening assessment Avis Marrufo TIME ANALYSIS CLERK.RECREATION THERAPIST Work Phone: Start: 07-25-2021 Ct abdomen & pelvis w/o contrast material Lizy Capone MD Work Phone: Start: 11-25-2018 Adult depression scr eening assessment Lizy Capone MD Work Phone: Plan of Treatment Date Care Activity Detail Author Start: 09-01-2027 Urine microalbumin profile [facility] Start: 01-15-2026 Diabetes Screening Diabetes Screening [facility] Start: 12-22-2025 Diabetes Screening Diabetes Screening [facility] Start: 09-26-2025 DIABETES SCREEN DIABETES SCREEN [facility] Start: 09-26-2025 Diabetes Screening Diabetes Screening [facility] Start: 01-06-2025 DIABETES SCREEN DIABETES SCREEN [facility] Start: 07-16-2024 DIABETES SCREEN DIABETES SCREEN [facility] Start: 05-08-2024 Complete blood count Hemoglobin/Hematocrit [facility] Start: 05-08-2024 Creatinine measurement Serum Creatinine [facility] Start: 04-15-2024 Annual PCP Team Chronic Disease Visit Annual PCP Team Chronic Disease Visit [facility] Start: 01-16-2024 Serum Creatinine Serum Creatinine [facility] Start: 12-23-2023 Annual PCP Team Chronic Disease Visit Annual PCP Team Chronic Disease Visit [facility] Start: 12-23-2023 BP Controlled (<130/80) BP Controlled (<130/80) [facility] Start: 12-23-2023 Serum Creatinine Serum Creatinine [facility] Start: 09-27-2023 ANNUAL PCP TEAM CHRONIC DISEASE VISIT ANNUAL PCP TEAM CHRONIC DISEASE VISIT [facility] Start: 09-27-2023 SERUM CREATININE SERUM CREATININE [facility] Start: 06-27-2023 ANNUAL PCP TEAM CHRONIC DISEASE VISIT ANNUAL PCP TEAM CHRONIC DISEASE VISIT [facility] Start: 06-27-2023 BP CONTROLLED (<130/80) BP CONTROLLED (<130/80) [facility] Start: 05-13-2023 BP CONTROLLED (<130/80) BP CONTROLLED (<130/80) [facility] Start: 04-21-2023 ANNUAL PCP TEAM CHRONIC DISEASE VISIT ANNUAL PCP TEAM CHRONIC DISEASE VISIT [facility] Start: 04-21-2023 BP CONTROLLED (<130/80) BP CONTROLLED (<130/80) [facility] Start: 04-06-2023 Depression Assessment Depression Assessment [facility] Start: 01-23-2023 End: 03-25-2023 Comprehensive metabolic 2000 panel - Serum or Plasma COMP METABOLIC PANEL Lab Routine Decreased glomerular filtration rate (GFR) Expected: 01/23/2023, Expires: 03/25/2023 [facility] Work Phone: Immunizations Immunization Date Immunization Notes Care Provider Abraham simpson 02-12-2022 influenza, high dose seasonal, preservative-free Lizy Capone MD Work Phone: [facility] 02-12-2022 influenza virus vacc ine, unspecified formulation Miryam Wells APRN.CNP Work Phone: [facility] 12-27-2021 COVID-19 booster vaccine, age 18+ yr, bivalent (MODERNA) Allison Pryor PT [facility] 12-27-2021 COVID-19 vaccine, ag e 12+ yr, bivalent (PFIZER-BIONTECH) Roque Jackson MD Work Phone: [facility] Work Phone: 12-17-2020 influenza, high dose seasonal, preservative-free Lizy Capone MD Work Phone: [facility] 11-23-2019 influenza, high dose seasonal, preservative-free Lizy Capone MD Work Phone: [facility] 12-11-2017 influenza, high dose seasonal, preservative-free Lizy Capone MD Work Phone: [facility] 08-31-2017 tetanus toxoid, redu tana diphtheria toxoid, and acellular pertussis vaccine, adsorbed Lizy Capone MD Work Phone: [facility] 01-06-2017 influenza, high dose seasonal, preservative-free Lizy Capone MD Work Phone: [facility] 12-06-2015 influenza, high dose seasonal, preservative-free Lizy Capone MD Work Phone: [facility] 02-26-2015 pneumococcal conjuga te vaccine, 13 valent Lizy Capone MD Work Phone: [facility] 12-30-2014 influenza, high dose seasonal, preservative-free Lizy Capone MD Work Phone: [facility] 02-02-2012 influenza virus vacc ine, unspecified formulation Lizy Capone MD Work Phone: [facility] 02-02-2012 pneumococcal polysaccharide vaccine, 23 valent Lizy Capone MD Work Phone: [facility] 02-21-2010 influenza virus vacc ine, unspecified formulation Lizy Capone MD Work Phone: [facility] 05-17-2009 zoster vaccine, live Lizy chavis MD Work Phone: [facility] 02-03-2008 influenza virus vacc ine, unspecified formulation Lizy Capone MD Work Phone: [facility] 02-04-2007 influenza virus vacc ine, unspecified formulation Lizy Capone MD Work Phone: [facility] Work Phone: 01-06-2007 pneumococcal polysaccharide vaccine, 23 valent Lizy Capone MD Work Phone: [facility] 02-03-2006 influenza virus vacc ine, whole virus Lizy Capone MD Work Phone: [facility] Work Phone: 01-30-2005 influenza virus vacc ine, whole virus Lizy Capone MD Work Phone: [facility] Work Phone: 01-06-2005 pneumococcal conjuga te vaccine, 7 valent Lizy Capone MD Work Phone: [facility] Work Phone: 12-26-1999 tetanus toxoid, adsorbed Shirley Capone MD Work Phone: [facility] Work Phone: Payers Date Payer Category Payer Medicare MEDICARE MEDICAR E A AND B [id number] 2008-Present [phone] [place] [address] Medicare [id number] 2008 Medicare MEDICARE MEDICAR E A AND B [id number] 2008-Present [phone] [place] [address] Medicare [id number] 2008 Medicare [id number] 2008 Unknown [facility] RES[facility] [id number] 2008-Present [address] [place] [address] Indemnity [id number] 1998 Unknown [id number] 1998 Unknown [id number] Social History Date Type Detail Facility Start: 04-27-2017 End: 01-02-2022 Tobacco smoking status NHIS Ex-smoker [facility] End: 04-06-1951 History of tobacco use Current smoker [facility] Work Phone: End: 04-06-1951 History of tobacco use Cigarette Smoker [facility] Work Phone: Start: 07-16-2021 End: 06-02-2023 Alcohol intake Current drinker of alcohol (finding) [facility] Start: 11-18-2016 History SDOH Alcohol Comment ocas glass of wine [facility] Start: 1940 Sex Assigned At Not on file [facility] Start: 07-06-2021 End: 01-30-2022 Exposure to SARS-CoV-2 (event) Not sure [facility] Start: 04-27-2017 End: 09-26-2022 Cigarettes smoked current (pack per day) - Reported 0.3 [facility] Start: 04-27-2017 End: 01-02-2022 Tobacco use and exposure Smokeless tobacco non-user [facility] Start: 11-28-2021 History SDOH Alcohol Comment occasionally [facility] Start: 09-26-2022 End: 10-16-2022 Tobacco use panel [facility] Adult Depression Screening Assessment 0 [facility] Medical Equipment Procedure Code Equipment Code Equipment Origin al Text Equipment Identifier Dates Anchr Sut 4.5mm Pshlk Spnl - [id number] Start: 04-24-2011 Clinical Notes 11-24-2016 to 06-04-2023 Telephone Encounter - Lora Valles LPN - 06/04/2023 1:40 PM ESTTelephone Encounter - Rebekah Alexander APRN.CJ - 06/04/2023 1:31 PM ESTPatient InstructionsPatient Instructions Note Date & Type Note Facility 06-04-2023 Miscellaneous Notes Spoke with patient and updated her. Lora Valles LPN oarrs was checked- no medication discrepancy or aberrations noted Xanax sent Rebekah Alexander APRN.CJ Patient would like a prescription for xanax called into pharmacy to take for RFA. Instructed patient to spanish moss picker and bring to appointment as it must be taken under the supervision of our clinical staff. Also instructed patient to arrive 45 minutes early to appointment and that motor bus driver must stay for the entirety of the procedure. Routed to Rebekah to send in medication. Jennifer De Leon Procedure(s) being scheduled: 1.Are you diabetic No 2. Are you on any blood thinners? No If yes, does it require a hold? No If yes, was approval letter sent? No 3. Are you taking any aspirin? Yes. Please list the current medications being prescribed 81mg. 4. Are you currently taking any antibiotics? Yes If yes, is it prophylactic or for treatment of an infection? Yes 4 more days 5. Do you have any allergies to latex? No 6. Do you have any allergies to seafood or shellfish? No 7. Do you have any allergies to x-ray dye? No 8. Did the physician instruct you to take any medication prior to your procedure? Yes 9. Does this procedure require a motor bus driver? Yes If yes, has patient been notified that a motor bus driver is needed and must be present at check in? Yes 10. Were the pre-procedure instructions explained and provided to the patient? Yes 11. Do you have a pacemaker? No 12. Do you have an internal stimulator of any kind? No If yes, please bring the remote with you to your procedure visit. 13. Have you received the COVID-19 Vaccine? Yes. If yes, date(s) received: 12/2021 (Patient should not receive a procedure including steroids 14 days prior to their first dose of the COVID vaccine. They should not receive any procedure containing steroids in the time frame between their 1st and 2nd doses of the COVID vaccine. They should not receive a procedure containing steroids 14 days after their 2nd dose of the COVID vaccine.) Jennifer De Leon documented in this encounter [facility] 06-02-2023 Note HNO ID: [id number] Author: REBEKAH ALEXANDER APRN.CJ Service: ? Author Type: Nurse Practitioner Type: Progress Notes Filed: 06/02/2023 10:17 Note Text: VIRTUAL VISIT PROGRESS NOTE This is a virtual visit using Audio Only Visit. It required patient-provider interaction for the medical decision making as documented below. I have communicated my name and active licensure. The patient's identity and physical location were verified at the time of this visit. Either the patient or their legal environmental marketing representative has been informed of the risks and benefits of -- and alternatives to -- treatment through a remote evaluation and consents to proceed with the evaluation remotely. Ting Vega is a 82 year old female seen for left shoulder pain, She had the left suprascapular nerve block on 05/18/[address] Jackson that has helped the pain here by 80%-90%. She feels very good today. She feels she has more ROM. She would like to pursue the RFA here. Ht 157.5 cm (5' 2 ) Wt 98.9 kg (218 lb) BMI 39.87 kg/m? DATE PROCEDURE IMPROVEMENT 05/18/2023 Left suprascapular NB 80-90% 02/16/2023 GH Joint. Bilateral 95% right, 0% left (04/16/2023 ) 08/13/2022 SPRINT PNS Lumbar (Right) Nearly 100% (04/16/2023 ) 07/30/2022 SPRINT PNS Lumbar (Left) Nearly 100% (04/16/2023 ) 05/15/2022 TPI Only helped for a few days 03/12/22 RFA BL L4/5, L5/S1 95% x 4 months HISTORY REVIEWED (electronic chart updated): PAST MEDICAL HISTORY Diagnosis Date Chronic airway obstruction, not elsewhere classified Essential hypertension, benign Insomnia 07/30/2011 Obesity, unspecified Open wound of knee, leg (except thigh), and ankle, complicated Other pulmonary embolism and infarction Phlebitis and thrombophlebitis of femoral vein (deep) (superficial) (HCC) Unspecified sleep apnea PAST SURGICAL HISTORY Procedure Laterality Date ANESTHESIA HERNIA REPAIR LOWER ABDOMEN NOS 04/2004,05/11 gortex put in on 05/11 then taken out06/08 ARTHRP KNE CONDYLEANDPLATU MEDIALANDLAT COMPARTMENTS 1990 bilateral total knee s([place]) ARTHRP KNE CONDYLEANDPLATU MEDIALANDLAT COMPARTMENTS 10/24/04 bilateral total knee revisions DELIVERY ONLY , low cervical CHOLECYSTECTOMY COLONOSCOPY FLX DX W/COLLJ SPEC WHEN PFRMD 11/17/2017 Colonoscopy DEBRIDEMENT SUBCUTANEOUS TISSUE 20 SQ CM/< 02/17/07 LEFT LEG DEBRIDEMENT SUBCUTANEOUS TISSUE 20 SQ CM/< [id number] LEFT LEG DEBRIDEMENT SUBCUTANEOUS TISSUE 20 SQ CM/< [id number] LEFT LEG DEBRIDEMENT SUBCUTANEOUS TISSUE 20 SQ CM/< [id number] LEFT LEG DEBRIDEMENT SUBCUTANEOUS TISSUE 20 SQ CM/< [id number] LEFT LEG DEBRIDEMENT SUBCUTANEOUS TISSUE 20 SQ CM/< 03/03/07 LEFT LEG ESOPHAGOGASTRODUODENOSCOPY TRANSORAL DIAGNOSTIC 11/17/2017 EGD GASTRIC BYPASS 07/08 HEMORRHOIDECTOMY INTERNAL RUBBER BAND LIGATIONS HYSTEROSCOPY BX W/WO DANDC 01/07/2018 PAST SURGICAL HISTORY OF 04/10/2016 Nancy and new knee cap put in right leg PAST SURGICAL HISTORY OF 04/25/2016 had to debri right leg wound with cellutitis infection FAMILY HISTORY Problem Relation Age of Onset Cancer Mother ovarian Social History Tobacco Use Smoking status: Former Packs/day: 0.25 Years: 1.00 Additional pack years: 0.00 Total pack years: 0.25 Types: Cigarettes Quit date: 04/06/1953 Years since quittin.2 Smokeless tobacco: Never Vaping Use Vaping Use: Never used Substance Use Topics Alcohol use: Yes Comment: occasionally Drug use: No Comment: used drugs for 3 years Current Outpatient Medications Medication Sig cyclobenzaprine (FLEXERIL) 10 mg tablet Take 1 tablet by mouth three times a day as needed for muscle spasm. omeprazole (PRILOSEC) 20 mg capsule Take 1 capsule by mouth once daily. zolpidem (AMBIEN) 10 mg Take 1 tablet by mouth at bedtime as needed for up to 90 days. gabapentin (NEURONTIN) 300 mg capsule Take 1 capsule by mouth three times a day for 180 days. Take one pill 3 times per day GEMTESA 75 mg tablet Take 1 tablet by mouth every afternoon. furosemide (LASIX) 40 mg tablet Take 1 tablet by mouth once daily. aspirin, enteric coated (ASPIRIN, ENTERIC COATED) 81 mg EC tablet Take 81 mg by mouth once daily. levothyroxine (LEVOXYL) 125 mcg tablet Take 1 tablet by mouth once daily. Take on empty stomach. For thyroid. amLODIPine (NORVASC) 5 mg tablet Take by mouth. tolterodine ER (DETROL LA) 4 mg 24 hr capsule TAKE 1 CAPSULE BY MOUTH ONCE DAILY acetaminophen (TYLENOL) 500 mg tablet Take 1,000 mg by mouth twice daily. Diaper,Brief, Adult,Disposable (DEPEND UNDERWEAR FOR WOMEN XL) Use 5/day as needed for urinary incontinence metoprolol succinate ER (TOPROL XL) 50 mg 24 hr tablet Take by mouth. Yiynakjbqbo-Fqcgeppnf-Gns C-Mn (GLUCOSAMINE CHONDROITIN MAXSTR) 500-400 mg cap Take 1 capsule by mouth three times daily. COMPOUNDED PRESCRIPTION Stair lift DAILY-LUISITO tablet TAKE 1 TABLET BY MOUTH ONCE DAILY. puoqsqm-asbuqwleh-jmuuovi D3 (CALCIUM 500+D) 500 mg(1,250m (more content not included)... [facility] 06-02-2023 History of Presen t illness Narrative VIRTUAL VISIT PROGRESS NOTE This is a virtual visit using Audio Only Visit. It required patient-provider interaction for the medical decision making as documented below. I have communicated my name and active licensure. The patient's identity and physical location were verified at the time of this visit. Either the patient or their legal environmental marketing representative has been informed of the risks and benefits of -- and alternatives to -- treatment through a remote evaluation and consents to proceed with the evaluation remotely. Ting Vega is a 82 year old female seen for left shoulder pain, -07/14 She had the left suprascapular nerve block on 05/18/[address] Jackson that has helped the pain here by 80%-90%. She feels very good today. She feels she has more ROM. She would like to pursue the RFA here. Ht 157.5 cm (5' 2 ) Wt 98.9 kg (218 lb) BMI 39.87 kg/m DATE PROCEDURE IMPROVEMENT 05/18/2023 Left suprascapular NB 80-90% 02/16/2023 GH Joint. Bilateral 95% right, 0% left (04/16/2023 ) 08/13/2022 SPRINT PNS Lumbar (Right) Nearly 100% (04/16/2023 ) 07/30/2022 SPRINT PNS Lumbar (Left) Nearly 100% (04/16/2023 ) 05/15/2022 TPI Only helped for a few days 03/12/22 RFA BL L4/5, L5/S1 95% x 4 months HISTORY REVIEWED (electronic chart updated): PAST MEDICAL HISTORY Diagnosis Date Chronic airway obstruction, not elsewhere classified Essential hypertension, benign Insomnia 07/30/2011 Obesity, unspecified Open wound of knee, leg (except thigh), and ankle, complicated Other pulmonary embolism and infarction Phlebitis and thrombophlebitis of femoral vein (deep) (superficial) (HCC) Unspecified sleep apnea PAST SURGICAL HISTORY Procedure Laterality Date ANESTHESIA HERNIA REPAIR LOWER ABDOMEN NOS 04/2004,05/11 gortex put in on 05/11 then taken out06/08 ARTHRP KNE CONDYLE&PLATU MEDIAL&LAT COMPARTMENTS 1990 bilateral total knee s([place]) ARTHRP KNE CONDYLE&PLATU MEDIAL&LAT COMPARTMENTS 10/24/04 bilateral total knee revisions DELIVERY ONLY , low cervical CHOLECYSTECTOMY COLONOSCOPY FLX DX W/COLLJ SPEC WHEN PFRMD 11/17/2017 Colonoscopy DEBRIDEMENT SUBCUTANEOUS TISSUE 20 SQ CM/< 02/17/07 LEFT LEG DEBRIDEMENT SUBCUTANEOUS TISSUE 20 SQ CM/< [id number] LEFT LEG DEBRIDEMENT SUBCUTANEOUS TISSUE 20 SQ CM/< [id number] LEFT LEG DEBRIDEMENT SUBCUTANEOUS TISSUE 20 SQ CM/< [id number] LEFT LEG DEBRIDEMENT SUBCUTANEOUS TISSUE 20 SQ CM/< [id number] LEFT LEG DEBRIDEMENT SUBCUTANEOUS TISSUE 20 SQ CM/< 03/03/07 LEFT LEG ESOPHAGOGASTRODUODENOSCOPY TRANSORAL DIAGNOSTIC 11/17/2017 EGD GASTRIC BYPASS 07/08 HEMORRHOIDECTOMY INTERNAL RUBBER BAND LIGATIONS HYSTEROSCOPY BX W/WO D&C 01/07/2018 PAST SURGICAL HISTORY OF 04/10/2016 Nancy and new knee cap put in right leg PAST SURGICAL HISTORY OF 04/25/2016 had to debri right leg wound with cellutitis infection FAMILY HISTORY Problem Relation Age of Onset Cancer Mother ovarian Social History Tobacco Use Smoking status: Former Packs/day: 0.25 Years: 1.00 Additional pack years: 0.00 Total pack years: 0.25 Types: Cigarettes Quit date: 04/06/1953 Years since quittin.2 Smokeless tobacco: Never Vaping Use Vaping Use: Never used Substance Use Topics Alcohol use: Yes Comment: occasionally Drug use: No Comment: used drugs for 3 years Current Outpatient Medications Medication Sig cyclobenzaprine (FLEXERIL) 10 mg tablet Take 1 tablet by mouth three times a day as needed for muscle spasm. omeprazole (PRILOSEC) 20 mg capsule Take 1 capsule by mouth once daily. zolpidem (AMBIEN) 10 mg Take 1 tablet by mouth at bedtime as needed for up to 90 days. gabapentin (NEURONTIN) 300 mg capsule Take 1 capsule by mouth three times a day for 180 days. Take one pill 3 times per day GEMTESA 75 mg tablet Take 1 tablet by mouth every afternoon. furosemide (LASIX) 40 mg tablet Take 1 tablet by mouth once daily. aspirin, enteric coated (ASPIRIN, ENTERIC COATED) 81 mg EC tablet Take 81 mg by mouth once daily. levothyroxine (LEVOXYL) 125 mcg tablet Take 1 tablet by mouth once daily. Take on empty stomach. For thyroid. amLODIPine (NORVASC) 5 mg tablet Take by mouth. tolterodine ER (DETROL LA) 4 mg 24 hr capsule TAKE 1 CAPSULE BY MOUTH ONCE DAILY acetaminophen (TYLENOL) 500 mg tablet Take 1,000 mg by mouth twice daily. Diaper,Brief, Adult,Disposable (DEPEND UNDERWEAR FOR WOMEN XL) Use 5/day as needed for urinary incontinence metoprolol succinate ER (TOPROL XL) 50 mg 24 hr tablet Take by mouth. Kdufchtehhl-Oqhafksai-Unw C-Mn (GLUCOSAMINE CHONDROITIN MAXSTR) 500-400 mg cap Take 1 capsule by mouth three times daily. COMPOUNDED PRESCRIPTION Stair lift DAILY-LUISITO tablet TAKE 1 TABLET BY MOUTH ONCE DAILY. wbxaqqi-ksptnqqoe-wpqxuuv D3 (CALCIUM 500+D) 500 mg(1,250mg) -200 unit per tablet Take 1 tablet by mouth twice daily with meals. vitamin b complex (B COMPLETE) tab Take 1 tablet by mouth once daily. hydrocortisone (ANUSOL-HC) 2.5 % rectal cream 1 application by RECTAL route twice daily. calcium acetate (PHOSLO) 667 mg capsule TAKE 1 CAPSULE BY MOUTH THREE TIMES DAILY. Magnesium 200 mg tab Take 200 mg by mouth once daily. Zinc 50 mg tab Take 1 tablet by mouth once daily. cholecalciferol (VITAMIN D3) 1,000 unit tab tablet Take 2 tablets by mouth once daily. senna-docusate (SENNA-S) 8.6-50 mg per tablet Take 1 tablet by mouth once daily. ascorbic acid(VITAMIN C 500 MG TAB) Take one(1) tablet daily. VITAMIN E 400 UNIT CAP Take one(1) tablet twice daily. pyridoxine hcl(VITAMIN B-6 100 MG TAB) Take one(1) tablet daily. CENTRUM PERFORMANCE TAB Take one(1) tablet daily. No current facility-administered medications for this visit. ALLERGIES Allergen Reactions Bactrim [Sulfametho* Hives Blisters: head to toe Ibuprofen Rash Kefzol [Cefazolin S* Hives Peanut Anaphylaxis Sulfa (Sulfonamide * Hives, Unknown Blisters: head to toe REVIEW OF SYSTEMS: GENERAL: no fever HEENT: denies CHRISTIE, change in hearing or vision, no other ENT complaints NECK: denies swelling or pain in neck RESPIRATORY: no cough, no wheezing or shortness of breath CARDIOVASCULAR: no chest pain, no palpitations GI: no abdominal pain : urination is normal MUSCULOSKELETAL: as above, no other joint pain/muscle ache SKIN: no rash PSYCH: sleep is normal HEMATOLOGY/LYMPHOLOGY: negative for prolonged bleeding ENDOCRINE: denies cold/heat intolerance NEURO: no numbness or paresthesias and no weakness of the extremities PHYSICAL EXAMINATION: VIDEO EXAM: (if completed, performed via video enabled technology) No exam performed ASSESSMENT: (M19.011, M19.012) Primary osteoarthritis of both shoulders (primary encounter diagnosis) PLAN: Given excellent diagnostic suprascapular block, we will go ahead and pursue the left suprascapular RFA for the long-lasting OA pain relief in the left shoulder Continue HEP Patient Instructions Ice and heat as tolerated Activity as tolerated I spent a total of 15 minutes on the date of the service which included preparing to see the patient, [id number] patient care, completing clinical documentation, and ordering medications, tests, or procedures Rebekah Alexander APRN.CJ I have communicated my name and active licensure. The patient's identity and physical location were verified at the time of this visit. Either the patient or their legal environmental marketing representative has been informed of the risks and benefits of -- and alternatives to -- treatment through a remote evaluation and consents to proceed with the evaluation remotely. documented in this encounter [facility] 06-02-2023 Instructions Rebekah Alexander APRN.RECREATION THERAPIST - 06/02/2023 7:01 AM EST Ice and heat as tolerated Activity as tolerated documented in this encounter [facility] 05-20-2023 Miscellaneous Notes Spoke with patient following up from procedure. Patient states they are doing well, no questions or concerns at this time. Jorje Nagel LPN documented in this encounter [facility] 05-18-2023 Note HNO ID: [id number] Author: CAROLANN MARX LPN Service: ? Author Type: LICENSED NURSE Type: Progress Notes Filed: 05/18/2023 13:33 Note Text: Order has been placed in the patient's chart with the following parameters for discharge from the physician: Patient is alert and oriented Vitals: Diastolic/Systolic +/- 20mmHg Respirations: 12-18 Pulse: 60-100 SpO2 is greater than or equal to 90% Patient has no nausea or vomiting Patient has no dizziness Pain level is +/- 2 from initial evaluation Dressing, dry and intact with no evidence of bleeding Criteria has been met, patient is okay to be discharged per the physician. Physician has gone in and evaluated the patient. Dressing dry and intact. No drainage noted. The patient denies nausea, numbness, tingling, weakness, shortness of breath, dizziness, or headache. Pain level 6/10. Vital signs within normal limits. Patient denied needing walked out by clinical staff and denied needing a wheelchair. Patient given discharge instructions and sent to transportation via ambulatory method. Patient left in good condition. [facility] 05-18-2023 Note HNO ID: [id number] Author: ROQUE JACKSON MD Service: ? Author Type: Physician Type: Progress Notes Filed: 05/18/2023 13:48 Note Text: [facility] Patient name: Ting Vega Date of : 1940 Today's date: 05/18/2023 Purpose: Ultrasound-guided injection [place] Lifeguard: Roque Jackson M.D. MLuis FernandoB.A Diagnosis: (M19.011, M19.012) Primary osteoarthritis of both shoulders (primary encounter diagnosis) Procedure: Suprascapular Nerve Block with steroid infiltration under ultrasound guidance LEFT-SIDED Injectate: A total of 5 ml volume was injected The injectate consisted of: 1 ml of Depo-Medrol (40mg/ml), The remainder consisting of 0.75% Bupivacaine Comments: None HPI: Ting Vega is an 82 year old FEMALE who presents today, in pain, for the procedure noted above. Review of Systems: Pertinent Positives: MSK: pain in the region being treated Neuro: weakness or numbness in the region being treated (unless otherwise noted) Skin: Negative (No itching) Eyes: Negative (No blurred or double vision) Respiratory: Negative (No Cough, Hspghlkae-[id number], Dyspnea on exertion, wheezing) Cardiovascular: Negative (No Chest Pain, Tightness, Pressure, Palpitations) Gastrointestinal: Negative (No Abdominal pain, Nausea, Vomiting, Constipation, Diarrhea) Genitourinary: Negative (No dysuria) Hematologic: Negative (No bleeding, bruising) OB: is Denied or Not Applicable Endocrine: Negative (No hot/cold intolerance) Psychiatric: Negative (No depression, anxiety or suicidal ideation) PAST MEDICAL HISTORY Diagnosis Date Chronic airway obstruction, not elsewhere classified Essential hypertension, benign Insomnia 07/30/2011 Obesity, unspecified Open wound of knee, leg (except thigh), and ankle, complicated Other pulmonary embolism and infarction Phlebitis and thrombophlebitis of femoral vein (deep) (superficial) ([facility]) Unspecified sleep apnea PAST SURGICAL HISTORY Procedure Laterality Date ANESTHESIA HERNIA REPAIR LOWER ABDOMEN NOS 04/2004,05/11 gortex put in on 05/11 then taken out06/08 ARTHRP KNE CONDYLEANDPLATU MEDIALANDLAT COMPARTMENTS 1990 bilateral total knee s([place]) ARTHRP KNE CONDYLEANDPLATU MEDIALANDLAT COMPARTMENTS 10/24/04 bilateral total knee revisions DELIVERY ONLY , low cervical CHOLECYSTECTOMY COLONOSCOPY FLX DX W/COLLJ SPEC WHEN PFRMD 11/17/2017 Colonoscopy DEBRIDEMENT SUBCUTANEOUS TISSUE 20 SQ CM/< 02/17/07 LEFT LEG DEBRIDEMENT SUBCUTANEOUS TISSUE 20 SQ CM/< [id number] LEFT LEG DEBRIDEMENT SUBCUTANEOUS TISSUE 20 SQ CM/< [id number] LEFT LEG DEBRIDEMENT SUBCUTANEOUS TISSUE 20 SQ CM/< [id number] LEFT LEG DEBRIDEMENT SUBCUTANEOUS TISSUE 20 SQ CM/< [id number] LEFT LEG DEBRIDEMENT SUBCUTANEOUS TISSUE 20 SQ CM/< 03/03/07 LEFT LEG ESOPHAGOGASTRODUODENOSCOPY TRANSORAL DIAGNOSTIC 11/17/2017 EGD GASTRIC BYPASS 07/08 HEMORRHOIDECTOMY INTERNAL RUBBER BAND LIGATIONS HYSTEROSCOPY BX W/WO DANDC 01/07/2018 PAST SURGICAL HISTORY OF 04/10/2016 Nancy and new knee cap put in right leg PAST SURGICAL HISTORY OF 04/25/2016 had to debri right leg wound with cellutitis infection FAMILY HISTORY Problem Relation Age of Onset Cancer Mother ovarian Social History Tobacco Use Smoking status: Former Packs/day: 0.25 Years: 1.00 Additional pack years: 0.00 Total pack years: 0.25 Types: Cigarettes Quit date: 04/06/1953 Years since quittin.1 Smokeless tobacco: Never Vaping Use Vaping Use: Never used Substance Use Topics Alcohol use: Yes Comment: occasionally Drug use: No Comment: used drugs for 3 years Current Outpatient Medications on File Prior to Visit Medication Sig cyclobenzaprine (FLEXERIL) 10 mg tablet Take 1 tablet by mouth three times a day as needed for muscle spasm. benzonatate (TESSALON PERLES) 100 mg capsule Take 2 capsules by mouth three times a day as needed. omeprazole (PRILOSEC) 20 mg capsule Take 1 capsule by mouth once daily. zolpidem (AMBIEN) 10 mg Take 1 tablet by mouth at bedtime as needed for up to 90 days. gabapentin (NEURONTIN) 300 mg capsule Take 1 capsule by mouth three times a day for 180 days. Take one pill 3 times per day GEMTESA 75 mg tablet Take 1 tablet by mouth every afternoon. furosemide (LASIX) 40 mg tablet Take 1 tablet by mouth once daily. aspirin, enteric coated (ASPIRIN, ENTERIC COATED) 81 mg EC tablet Take 81 mg by mouth once daily. levothyroxine (LEVOXYL) 125 mcg tablet Take 1 tablet by mouth once daily. Take on empty stomach. For thyroid. amLODIPine (NORVASC) 5 mg tablet Take by mouth. tolterodine ER (DETROL LA) 4 mg 24 hr capsule TAKE 1 CAPSULE BY MOUTH ONCE DAILY acetaminophen (TYLENOL) 500 mg tablet Take 1,000 mg by mouth twice daily. Diaper,Brief, Adult,Disposable (DEPEND UNDERWEAR FOR WOMEN XL) Use 5/day as needed for urinary incontinence metoprolol succinate ER (TOPROL XL) 50 mg 24 hr (more content not included)... [facility] 05-18-2023 Note HNO ID: [id number] Author: RAHEEL CANO LPN Service: ? Author Type: LICENSED NURSE Type: Progress Notes Filed: 05/18/2023 13:48 Note Text: Review of Systems Constitutional: Negative for activity change, appetite change, chills and fever. Genitourinary: Negative for difficulty urinating. Musculoskeletal: Positive for arthralgias and gait problem. Negative for back pain, joint swelling, myalgias, neck pain and neck stiffness. Neurological: Negative for weakness, numbness and headaches. Psychiatric/Behavioral: Negative for dysphoric mood, sleep disturbance and suicidal ideas. The patient is not nervous/anxious. [facility] 05-18-2023 Instructions Carolann Marx LPN - 05/18/2023 1:37 PM EST PROCEDURE DISCHARGE INSTRUCTIONS 05/18/2023 Ting Vega 1940 Physician: Roque Jackson MD Procedure: Facet Joint Injection/Medial Branch Block Post Procedure Instructions: If sedation not given, no driving for 3 hours after the procedure., Perform activities that typically make you have pain and monitor your pain level during these activities for the next 3-4 hours., You may resume normal activities the day after the procedure, as tolerated., Apply cold compresses to injection site if needed., If medically acceptable, take over the counter anti-inflammatories such as ibuprofen or Aleve if needed for post procedure discomfort., No hot baths, hot tubs or hot compresses for 24 hours., and Increased pain the day after the procedure may occur. If you have any of the following signs or symptoms, please call our office at Fever and/or chills Swelling and/or drainage from injection site New pain that is different than your normal pain (other than soreness at the site of the procedure) Stiff neck Shortness of breath Severe increase in pain Motor dysfunctions, such as difficulty walking, bowel or bladder dysfunction and/or incontinence Headache that is severe, light sensitive or develops when changing positions (positional headache) Nausea and/or vomiting accompanied by headache that started 24-48 hours after the procedure If you have any emergent concerns, please call 911 or go to your local emergency room. Please also contact our office to let us know you will be seeking emergency care and why. documented in this encounter [facility] 05-18-2023 History of Presen t illness Narrative Order has been placed in the patient's chart with the following parameters for discharge from the physician: Patient is alert and oriented Vitals: Diastolic/Systolic +/- 20mmHg Respirations: 12-18 Pulse: 60-100 SpO2 is greater than or equal to 90% Patient has no nausea or vomiting Patient has no dizziness Pain level is +/- 2 from initial evaluation Dressing, dry and intact with no evidence of bleeding Criteria has been met, patient is okay to be discharged per the physician. Physician has gone in and evaluated the patient. Dressing dry and intact. No drainage noted. The patient denies nausea, numbness, tingling, weakness, shortness of breath, dizziness, or headache. Pain level 6/10. Vital signs within normal limits. Patient denied needing walked out by clinical staff and denied needing a wheelchair. Patient given discharge instructions and sent to transportation via ambulatory method. Patient left in good condition. [facility] Patient name: Ting Vega Date of : 1940 Today's date: 05/18/2023 Purpose: Ultrasound-guided injection [place] Lifeguard: Roque Jackson M.D., M.B.A Diagnosis: (M19.011, M19.012) Primary osteoarthritis of both shoulders (primary encounter diagnosis) Procedure: Suprascapular Nerve Block with steroid infiltration under ultrasound guidance LEFT-SIDED Injectate: A total of 5 ml volume was injected The injectate consisted of: 1 ml of Depo-Medrol (40mg/ml), The remainder consisting of 0.75% Bupivacaine Comments: None HPI: Ting Vega is an 82 year old FEMALE who presents today, in pain, for the procedure noted above. Review of Systems: Pertinent Positives: MSK: pain in the region being treated Neuro: weakness or numbness in the region being treated (unless otherwise noted) Skin: Negative (No itching) Eyes: Negative (No blurred or double vision) Respiratory: Negative (No Cough, Liinmtaar-sc-hwxkzn, Dyspnea on exertion, wheezing) Cardiovascular: Negative (No Chest Pain, Tightness, Pressure, Palpitations) Gastrointestinal: Negative (No Abdominal pain, Nausea, Vomiting, Constipation, Diarrhea) Genitourinary: Negative (No dysuria) Hematologic: Negative (No bleeding, bruising) OB: is Denied or Not Applicable Endocrine: Negative (No hot/cold intolerance) Psychiatric: Negative (No depression, anxiety or suicidal ideation) PAST MEDICAL HISTORY Diagnosis Date Chronic airway obstruction, not elsewhere classified Essential hypertension, benign Insomnia 07/30/2011 Obesity, unspecified Open wound of knee, leg (except thigh), and ankle, complicated Other pulmonary embolism and infarction Phlebitis and thrombophlebitis of femoral vein (deep) (superficial) ([facility]) Unspecified sleep apnea PAST SURGICAL HISTORY Procedure Laterality Date ANESTHESIA HERNIA REPAIR LOWER ABDOMEN NOS 04/2004,05/11 gortex put in on 05/11 then taken out06/08 ARTHRP KNE CONDYLE&PLATU MEDIAL&LAT COMPARTMENTS 1990 bilateral total knee s([place]) ARTHRP KNE CONDYLE&PLATU MEDIAL&LAT COMPARTMENTS 10/24/04 bilateral total knee revisions DELIVERY ONLY , low cervical CHOLECYSTECTOMY COLONOSCOPY FLX DX W/COLLJ SPEC WHEN PFRMD 11/17/2017 Colonoscopy DEBRIDEMENT SUBCUTANEOUS TISSUE 20 SQ CM/< 02/17/07 LEFT LEG DEBRIDEMENT SUBCUTANEOUS TISSUE 20 SQ CM/< [id number] LEFT LEG DEBRIDEMENT SUBCUTANEOUS TISSUE 20 SQ CM/< [id number] LEFT LEG DEBRIDEMENT SUBCUTANEOUS TISSUE 20 SQ CM/< [id number] LEFT LEG DEBRIDEMENT SUBCUTANEOUS TISSUE 20 SQ CM/< [id number] LEFT LEG DEBRIDEMENT SUBCUTANEOUS TISSUE 20 SQ CM/< 03/03/07 LEFT LEG ESOPHAGOGASTRODUODENOSCOPY TRANSORAL DIAGNOSTIC 11/17/2017 EGD GASTRIC BYPASS 07/08 HEMORRHOIDECTOMY INTERNAL RUBBER BAND LIGATIONS HYSTEROSCOPY BX W/WO D&C 01/07/2018 PAST SURGICAL HISTORY OF 04/10/2016 Nancy and new knee cap put in right leg PAST SURGICAL HISTORY OF 04/25/2016 had to debri right leg wound with cellutitis infection FAMILY HISTORY Problem Relation Age of Onset Cancer Mother ovarian Social History Tobacco Use Smoking status: Former Packs/day: 0.25 Years: 1.00 Additional pack years: 0.00 Total pack years: 0.25 Types: Cigarettes Quit date: 04/06/1953 Years since quittin.1 Smokeless tobacco: Never Vaping Use Vaping Use: Never used Substance Use Topics Alcohol use: Yes Comment: occasionally Drug use: No Comment: used drugs for 3 years Current Outpatient Medications on File Prior to Visit Medication Sig cyclobenzaprine (FLEXERIL) 10 mg tablet Take 1 tablet by mouth three times a day as needed for muscle spasm. benzonatate (TESSALON PERLES) 100 mg capsule Take 2 capsules by mouth three times a day as needed. omeprazole (PRILOSEC) 20 mg capsule Take 1 capsule by mouth once daily. zolpidem (AMBIEN) 10 mg Take 1 tablet by mouth at bedtime as needed for up to 90 days. gabapentin (NEURONTIN) 300 mg capsule Take 1 capsule by mouth three times a day for 180 days. Take one pill 3 times per day GEMTESA 75 mg tablet Take 1 tablet by mouth every afternoon. furosemide (LASIX) 40 mg tablet Take 1 tablet by mouth once daily. aspirin, enteric coated (ASPIRIN, ENTERIC COATED) 81 mg EC tablet Take 81 mg by mouth once daily. levothyroxine (LEVOXYL) 125 mcg tablet Take 1 tablet by mouth once daily. Take on empty stomach. For thyroid. amLODIPine (NORVASC) 5 mg tablet Take by mouth. tolterodine ER (DETROL LA) 4 mg 24 hr capsule TAKE 1 CAPSULE BY MOUTH ONCE DAILY acetaminophen (TYLENOL) 500 mg tablet Take 1,000 mg by mouth twice daily. Diaper,Brief, Adult,Disposable (DEPEND UNDERWEAR FOR WOMEN XL) Use 5/day as needed for urinary incontinence metoprolol succinate ER (TOPROL XL) 50 mg 24 hr tablet Take by mouth. Gjsizeueqds-Dnesamrvy-Tee C-Mn (GLUCOSAMINE CHONDROITIN MAXSTR) 500-400 mg cap Take 1 capsule by mouth three times daily. COMPOUNDED PRESCRIPTION Stair lift DAILY-LUISITO tablet TAKE 1 TABLET BY MOUTH ONCE DAILY. jjzfann-fhqzqiugc-ogallrw D3 (CALCIUM 500+D) 500 mg(1,250mg) -200 unit per tablet Take 1 tablet by mouth twice daily with meals. vitamin b complex (B COMPLETE) tab Take 1 tablet by mouth once daily. hydrocortisone (ANUSOL-HC) 2.5 % rectal cream 1 application by RECTAL route twice daily. calcium acetate (PHOSLO) 667 mg capsule TAKE 1 CAPSULE BY MOUTH THREE TIMES DAILY. Magnesium 200 mg tab Take 200 mg by mouth once daily. Zinc 50 mg tab Take 1 tablet by mouth once daily. cholecalciferol (VITAMIN D3) 1,000 unit tab tablet Take 2 tablets by mouth once daily. senna-docusate (SENNA-S) 8.6-50 mg per tablet Take 1 tablet by mouth once daily. ascorbic acid(VITAMIN C 500 MG TAB) Take one(1) tablet daily. VITAMIN E 400 UNIT CAP Take one(1) tablet twice daily. pyridoxine hcl(VITAMIN B-6 100 MG TAB) Take one(1) tablet daily. CENTRUM PERFORMANCE TAB Take one(1) tablet daily. No current facility-administered medications on file prior to visit. Objective Exam: Vitals: As per nursing documentation Constitutional: Normal Appearance, Oriented to Time, Place and Person Head: No lacerations, no external signs of trauma Eyes: Conjunctiva clear. No discharge from the eyes Cardiovascular: Appears well-perfused Pulmonary: Non-labored respirations Abdominal: Non-distended Skin: No visible rashes or ecchymosis Psychiatric: Mood appropriate for given condition Neurological: Gross movements are limited by pain, but otherwise unremarkable Data Reviewed: Nursing note and vitals reviewed. Additional imaging reviewed as appropriate Assessment and Plan: As noted above [facility] protocol documentation / Pre-Procedure Checklist: Consent: Obtained in writing prior to procedure I had a nice discussion with the patient today about their current pain and the pathology that could be causing it We discussed different treatment options, including risks, benefits and alternatives. We agreed to proceed as previously discussed, or the plan was modified in accordance with the comments noted above Unless stated otherwise in the procedure note, the risks include but are not limited to infection, allergic reaction, increased pain, lack of therapeutic benefit, steroid reaction, nerve damage, paralysis, stroke, epidural hematoma, syncope, headache, respiratory or cardiac arrest, pneumothorax, and scar formation Once the plan was agreed upon, the patient gave written consent to proceed and was transported into the procedure room Surgical/Procedure pause or Time Out : Time Out was led by the physician in the procedure room, with the patient and all staff present and participating The following information was verified during the Time Out process: Patient name, patient date of , procedure site (marked), laterality, anticoagulants and allergies ID verified by two sources: Name and Site(s) marked: yes Position: as per procedure note Consent: obtained verbally prior to procedure Allergies reviewed and verified with patient: yes Recent History and Physical: available Relevant images: available Surgical/Procedure pause: yes Other pre-procedural information: given Patient concurs: yes Team present and concurs: yes Static views were obtained using a 2-5 Hz Curvilinear Probe After identifying the region mentioned above, the patient was positioned seated. The area was prepped in aseptic fashion with Chloraprep. Doppler imaging was utilized to verify no major vessels in the anticipated needle trajectory. Using a 27 gauge, 1 inch needle, 1cc of 1% Lidocaine was injected beneath the skin, and a wheal was raised. Subsequently, at this site, a 22 gauge, 3.5 inch needle was directed into the above-mentioned target area utilizing real-time ultrasound guidance. The injection was completed under real-time ultrasound guidance, with the medication noted above was injected slowly and with consistent pressure. The injected medication was visualized in its intended position. Where appropriate, there was distention of the involved joint and/or bursa. The needle was then removed. The remainder of the single use vials were wasted. The patient tolerated the procedure without difficulty and was instructed on post-injection care. Pre- and post-injection pictures, as well as pictures of any relevant findings, were obtained and saved for purposes of documentation. Patient was advised to watch for any signs of infection in the area of the injection (redness, streaky appearance of skin, etc.) and call the office immediately for treatment if those symptoms develop. The patient was instructed to follow-up with the requesting physician. Roque HODGSON[facility] Review of Systems Constitutional: Negative for activity change, appetite change, chills and fever. Genitourinary: Negative for difficulty urinating. Musculoskeletal: Positive for arthralgias and gait problem. Negative for back pain, joint swelling, myalgias, neck pain and neck stiffness. Neurological: Negative for weakness, numbness and headaches. Psychiatric/Behavioral: Negative for dysphoric mood, sleep disturbance and suicidal ideas. The patient is not nervous/anxious. documented in this encounter [facility] 05-18-2023 Nurse Note Procedure to be performed: Unilateral Left SUPRASCAPULAR NERVE BLOCK Patient was wheeled on stretcher from pre op bay to procedure room and assisted onto the procedure tablePatient s procedure was performed in an [facility] Procedure room. Pause completed at each level by provider to verify correct level and laterality placement Pressure was applied to patient s injection site(s) and bleeding was minimal. Patient had no complaint of shortness of breath, dizziness, headache, numbness, tingling, weakness or complications from procedure. Patient was assisted from the procedure table onto the stretcher and wheeled into a post op bay. Patient was advised a clinician will be to obtain another set of vitals. Time Out: 1321 Confirmed patient name, date of , procedure site, laterality, and allergies Procedure Start: 1324 Procedure End: 1326 Party Chief's Name: MELLISA Are you on a blood thinner: N If yes, is a hold required: N Last dose of blood thinner: N INR Result today: N Do you require a Lovenox bridge:N Are you a diabetic:N Are you/or could you be : N Are you taking Xanax for the procedure: N Are you currently on a steroid? N Are you currently on an antibiotic: N Have you had a COVID-19 vaccine in the last 14 days Or are you scheduled to receive one? N documented in this encounter [facility] 04-16-2023 Note HNO ID: [id number] Author: KALEIGH MEEKS MA Service: ? Author Type: Tapping Machine Operator Automatic Type: Progress Notes Filed: 04/16/2023 08:43 Note Text: Review of Systems Constitutional: Negative for activity change, chills, fever and unexpected weight change. Gastrointestinal: Negative for bowel retention or incontinence Genitourinary: Negative for difficulty urinating. Negative for bladder retention or incontinence Musculoskeletal: Positive for arthralgias, back pain, joint swelling and myalgias. Negative for gait problem, neck pain and neck stiffness. Neurological: Positive for weakness. Negative for numbness and headaches. Psychiatric/Behavioral: Negative for dysphoric mood, sleep disturbance and suicidal ideas. The patient is not nervous/anxious. [facility] 04-15-2023 Note HNO ID: [id number] Author: MIRYAM WELLS APRN.RECREATION THERAPIST Service: ? Author Type: Nurse Practitioner Type: Progress Notes Filed: 04/15/2023 09:44 Note Text: This is a 82 year old female who presents today with: Patient presents with: Follow Up: 3 month follow up HISTORY OF PRESENT ILLNESS: Ting Veag is a 82 year old female. Patient presents with: Follow Up: 3 month follow up 3 month follow up Cold Symptoms: Was seen in [facility] 03/31/2023, chest xray normal, negative flu/covid/RSV. Has been taking mucinex and tessalon perles. Refers still having productive cough, green mucus. No Sob, fever, and chills. History of incontinence, Following with Dr. Hernandez (urology). Refers she started a new medication, Gemtesa 75 mg daily, which has been helpful. Cystoscopy normal. Has bathroom schedule to empty bladder. Chronic back pain: Following with pain management, Dr. Jackson, Had SPR device placement in june. Back pain is gone since getting the deviced placed. Device removed In October. Follow up tomorrow. Knee Pain: Using Voltaren gel as needed. Left Shoulder: Has been having ongoing pain for about 5-6 months. Pain is constant. Has been working on at home exercises. refers that they are discussing possible surgery. Has appt tomorrow with pain management. LLE: Lasix 40mg for Lasix daily, following with Nephrology, Dr. Dave GALARZA, switched to Dr. Gilmore. HTN: Taking Norvasc 5 mg and Toprol XL 50 mg daily. Denies chest pain, palpitations, or dizziness. Hypothyroid: Taking levothyroxine 125 mcg daily. Cardiology: Following with Dr. Jackson. Down 60 lbs since July. Lost another 12 lbs since September. Has been working out 3 times weekly and watching diet. Sleep: Taking Ambien 10 mg at bedtime. Vaccines: would like to covid booster once she feels better. PAST MEDICAL HISTORY: PAST MEDICAL HISTORY Diagnosis Date Chronic airway obstruction, not elsewhere classified Essential hypertension, benign Insomnia 07/30/2011 Obesity, unspecified Open wound of knee, leg (except thigh), and ankle, complicated Other pulmonary embolism and infarction Phlebitis and thrombophlebitis of femoral vein (deep) (superficial) ([facility]) Unspecified sleep apnea PAST SURGICAL HISTORY Procedure Laterality Date ANESTHESIA HERNIA REPAIR LOWER ABDOMEN NOS 04/2004,05/11 gortex put in on 05/11 then taken out06/08 ARTHRP KNE CONDYLEANDPLATU MEDIALANDLAT COMPARTMENTS 1990 bilateral total knee s([place]) ARTHRP KNE CONDYLEANDPLATU MEDIALANDLAT COMPARTMENTS 10/24/04 bilateral total knee revisions DELIVERY ONLY , low cervical CHOLECYSTECTOMY COLONOSCOPY FLX DX W/COLLJ SPEC WHEN PFRMD 11/17/2017 Colonoscopy DEBRIDEMENT SUBCUTANEOUS TISSUE 20 SQ CM/< 02/17/07 LEFT LEG DEBRIDEMENT SUBCUTANEOUS TISSUE 20 SQ CM/< [id number] LEFT LEG DEBRIDEMENT SUBCUTANEOUS TISSUE 20 SQ CM/< [id number] LEFT LEG DEBRIDEMENT SUBCUTANEOUS TISSUE 20 SQ CM/< [id number] LEFT LEG DEBRIDEMENT SUBCUTANEOUS TISSUE 20 SQ CM/< [id number] LEFT LEG DEBRIDEMENT SUBCUTANEOUS TISSUE 20 SQ CM/< 03/03/07 LEFT LEG ESOPHAGOGASTRODUODENOSCOPY TRANSORAL DIAGNOSTIC 11/17/2017 EGD GASTRIC BYPASS 07/08 HEMORRHOIDECTOMY INTERNAL RUBBER BAND LIGATIONS HYSTEROSCOPY BX W/WO DANDC 01/07/2018 PAST SURGICAL HISTORY OF 04/10/2016 Nancy and new knee cap put in right leg PAST SURGICAL HISTORY OF 04/25/2016 had to debri right leg wound with cellutitis infection ALLERGIES Bactrim [Sulfamethoxazole-Trimethoprim], Ibuprofen, Kefzol [Cefazolin Sodium], Peanut, and Sulfa (Sulfonamide Antibiotics) MEDICATIONS Current Outpatient Medications Medication Sig zolpidem (AMBIEN) 10 mg Take 1 tablet by mouth at bedtime as needed for up to 90 days. benzonatate (TESSALON PERLES) 100 mg capsule Take 2 capsules by mouth three times a day as needed. gabapentin (NEURONTIN) 300 mg capsule Take 1 capsule by mouth three times a day for 180 days. Take one pill 3 times per day GEMTESA 75 mg tablet Take 1 tablet by mouth every afternoon. furosemide (LASIX) 40 mg tablet Take 1 tablet by mouth once daily. cyclobenzaprine (FLEXERIL) 10 mg tablet Take 1 tablet by mouth three times daily as needed for muscle spasm. aspirin, enteric coated (ASPIRIN, ENTERIC COATED) 81 mg EC tablet Take 81 mg by mouth once daily. levothyroxine (LEVOXYL) 125 mcg tablet Take 1 tablet by mouth once daily. Take on empty stomach. For thyroid. amLODIPine (NORVASC) 5 mg tablet Take by mouth. omeprazole (PRILOSEC) 20 mg capsule TAKE 1 CAPSULE BY MOUTH ONCE DAILY tolterodine ER (DETROL LA) 4 mg 24 hr capsule TAKE 1 CAPSULE BY MOUTH ONCE DAILY acetaminophen (TYLENOL) 500 mg tablet Take 1,000 mg by mouth twice daily. Diaper,Brief, Adult,Disposable (DEPEND UNDERWEAR FOR WOMEN XL) Use 5/day as needed for urinary incontinence metoprolol succinate ER (TOPROL XL) 50 mg 24 hr tablet Take by mouth. Mgcebpqmljo-Jdrxsrenr-Edz C-Mn (GLUCOSAMINE CHONDROITIN MAXSTR) 500-400 mg cap Take 1 capsu (more content not included)... [facility] 03-31-2023 Note HNO ID: [id number] Author: Liz Wen PA-C Service: ? Author Type: Physician Accounting Consultant Type: Progress Notes Filed: 03/31/2023 11:49 AM Note Text: This note was created using [employer]. Subjective Ting Vega is a 82 year old female. HPI Patient presents with a chief complaint of bodyaches, fatigue, cough and congestion over the past 5 days. She does not think she has had a fever however did not check temperature at home. She has had some diarrhea. No vomiting. States she has not eaten as much but is drinking fluids. No chest pain or shortness of breath. Cough is sometimes productive. 2 home COVID test were negative. Review of Systems Constitutional: Positive for appetite change, chills and fatigue. Negative for fever. HENT: Positive for congestion, rhinorrhea, sore throat and voice change. Negative for ear pain. Respiratory: Positive for cough. Negative for shortness of breath and wheezing. Cardiovascular: Negative. Gastrointestinal: Positive for diarrhea. Negative for vomiting. Genitourinary: Negative. Musculoskeletal: Positive for myalgias. All other systems reviewed and are negative. PAST MEDICAL HISTORY Diagnosis Date Chronic airway obstruction, not elsewhere classified Essential hypertension, benign Insomnia 07/30/2011 Obesity, unspecified Open wound of knee, leg (except thigh), and ankle, complicated Other pulmonary embolism and infarction Phlebitis and thrombophlebitis of femoral vein (deep) (superficial) (HCC) Unspecified sleep apnea Current Outpatient Medications Medication Sig Dispense Refill gabapentin (NEURONTIN) 300 mg capsule Take 1 capsule by mouth three times a day for 180 days. Take one pill 3 times per day 270 capsule 1 zolpidem (AMBIEN) 10 mg Take 1 tablet by mouth at bedtime as needed for up to 90 days. 30 tablet 2 GEMTESA 75 mg tablet Take 1 tablet by mouth every afternoon. furosemide (LASIX) 40 mg tablet Take 1 tablet by mouth once daily. 90 tablet 1 cyclobenzaprine (FLEXERIL) 10 mg tablet Take 1 tablet by mouth three times daily as needed for muscle spasm. 90 tablet 1 aspirin, enteric coated (ASPIRIN, ENTERIC COATED) 81 mg EC tablet Take 81 mg by mouth once daily. levothyroxine (LEVOXYL) 125 mcg tablet Take 1 tablet by mouth once daily. Take on empty stomach. For thyroid. 90 tablet 3 amLODIPine (NORVASC) 5 mg tablet Take by mouth. omeprazole (PRILOSEC) 20 mg capsule TAKE 1 CAPSULE BY MOUTH ONCE DAILY 90 capsule 3 tolterodine ER (DETROL LA) 4 mg 24 hr capsule TAKE 1 CAPSULE BY MOUTH ONCE DAILY 90 capsule 3 acetaminophen (TYLENOL) 500 mg tablet Take 1,000 mg by mouth twice daily. Diaper,Brief, Adult,Disposable (DEPEND UNDERWEAR FOR WOMEN XL) Use 5/day as needed for urinary incontinence 150 Each 11 metoprolol succinate ER (TOPROL XL) 50 mg 24 hr tablet Take by mouth. Aktjbcjqdtm-Fllsnvvdp-Rjz C-Mn (GLUCOSAMINE CHONDROITIN MAXSTR) 500-400 mg cap Take 1 capsule by mouth three times daily. 90 capsule 11 COMPOUNDED PRESCRIPTION Stair lift 1 Device 0 DAILY-LUISITO tablet TAKE 1 TABLET BY MOUTH ONCE DAILY. 30 tablet 11 hduwrup-ouvbugtcw-ezguvvd D3 (CALCIUM 500+D) 500 mg(1,250mg) -200 unit per tablet Take 1 tablet by mouth twice daily with meals. 180 tablet 3 vitamin b complex (B COMPLETE) tab Take 1 tablet by mouth once daily. 90 tablet 3 hydrocortisone (ANUSOL-HC) 2.5 % rectal cream 1 application by RECTAL route twice daily. 1 Tube 2 calcium acetate (PHOSLO) 667 mg capsule TAKE 1 CAPSULE BY MOUTH THREE TIMES DAILY. 90 capsule 3 Magnesium 200 mg tab Take 200 mg by mouth once daily. 30 tablet 11 Zinc 50 mg tab Take 1 tablet by mouth once daily. 30 tablet 11 cholecalciferol (VITAMIN D3) 1,000 unit tab tablet Take 2 tablets by mouth once daily. 0 senna-docusate (SENNA-S) 8.6-50 mg per tablet Take 1 tablet by mouth once daily. 0 ascorbic acid(VITAMIN C 500 MG TAB) Take one(1) tablet daily. 0 VITAMIN E 400 UNIT CAP Take one(1) tablet twice daily. 0 pyridoxine hcl(VITAMIN B-6 100 MG TAB) Take one(1) tablet daily. 0 CENTRUM PERFORMANCE TAB Take one(1) tablet daily. 0 benzonatate (TESSALON PERLES) 100 mg capsule Take 2 capsules by mouth three times a day as needed. 30 capsule 0 No current facility-administered medications for this visit. PAST SURGICAL HISTORY Procedure Laterality Date ANESTHESIA HERNIA REPAIR LOWER ABDOMEN NOS 04/2004,05/11 gortex put in on 05/11 then taken out06/08 ARTHRP KNE CONDYLEANDPLATU MEDIALANDLAT COMPARTMENTS 1990 bilateral total knee s([place]) ARTHRP KNE CONDYLEANDPLATU MEDIALANDLAT COMPARTMENTS 10/24/04 bilateral total knee revisions DELIVERY ONLY , low cervical CHOLECYSTECTOMY COLONOSCOPY FLX DX W/COLLJ SPEC WHEN PFRMD 11/17/2017 Colonoscopy DEBRIDEMENT SUBCUTANEOUS TISSUE 20 SQ CM/< 02/17/07 LEFT LEG DEBRIDEMENT SUBCUTANEOUS TISSUE 20 SQ CM/< [id number] LEFT LEG DEBRIDEMENT SUBCUTANEOUS TISSUE 20 SQ CM/< [id number] LEFT LEG DEBRIDEMENT SUBCUTANEOUS TIS (more content not included)... [facility] 03-31-2023 Note HNO ID: [id number] Author: Latia Weston RT(R) Service: Radiology Author Type: Technologist Type: Progress Notes Filed: 03/31/2023 11:35 AM Note Text: Radiology Service Progress Note PATIENT NAME: Ting Vega DATE OF SERVICE: March 31, 2023 TIME: 11:25 AM PATIENT IDENTITY VERIFICATION COMPLETED USING TWO (2) IDENTIFIERS: Name and Date of confirmed by patient verbally. FALL SCREENING: Has the patient had 2 falls in the last year or 1 fall with injury or currently using an Ambulatory Assistive Device (Walker, Cane, Wheelchair, Crutches, etc.)? No PATIENT GENDER DATA: Female. status: : No status: NO. PATIENT RELEVANT IMPLANT DATA REVIEWED: Yes RADIOLOGY DEPARTMENT: General X-ray: Exam(s) Completed: Chest X-Ray PERIPHERAL IV DATA: Not applicable SIGNED BY: RT Mina(R) March 31, 2023 11:25 AM [facility] 03-31-2023 Note HNO ID: [id number] Author: ROQUE JACKSON MD Service: ? Author Type: Physician Type: Progress Notes Filed: 04/16/2023 08:43 Note Text: [facility] Today's Date: 04/16/2023 Last visit: 01/15/2023 03/02/2023 Name: Ting Vega : 1940 Purpose: Follow-up Patient Evaluation - This is an established patient, returning today for continued evaluation and management of the chief complaint noted below Chief complaint: Thoracic and low back Pain Referring Clinician: Lizy Capone MD Pertinent Past Medical History: Insomnia , Hypertension (HTN), APNEA , Anemia in chronic kidney disease, Hypothyroidism, Obesity, Chronic midline low back pain with sciatica, Pertinent Past Surgeries: Nancy and new knee cap in right leg (2016), Bilat total knee revisions (2004), Bilat TKA (1990), 03/02/2023 - Ting Vega is a 82 year old female seen for shoulder pain, pain score 1-3/10. She had the bilateral GHJ USI with Dr. Jackson on 02/16/2023 that has helped the pain here by 50%. She is able to do a little more since the injection. She is even sleeping better. She is seeing Dr. Jackson in the near future to discuss possible SPR. PLAN: She is doing well from the steroid injection for the GHJ. We could consider SPR but she would need a diagnostic suprascapular block first. She is going to discuss this further with Dr. Jackson in a few weeks Plan at last visit: Ting Vega would benefit from the following to decrease pain, improve function and/or work participation, and improve quality of life: Interventional Procedure(s): Glenohumeral joint injection, bilateral, under fluoroscopic guidance Medications: Refill: Gabapentin 300mg TID - advised to continue for 3 months, then will consider weaning She previously inquired about increasing her Gabapentin, however due to her renal functions I advised we hold on this for now and continue her current dose Flexeril 10mg TID PRN Functional [facility]: No changes-continue current regimen Additional Studies: X-ray Bilat Shoulders Interval History: Overall pain and functional disability since last visit: Better New Complaints since last visit: No She has 95% of right shoulder pain relief since the injection in February, left shoulder had no relief and negative diagnostic value. She can hardly raise the left arm to hold a glass in her hand. She reports 100% relief of her low back and thoracic pain since the SPRINT PNS treatment. Other than a little stiffness in the morning, she has no low back pain. She is exercising regularly. She has lost 78 pounds since July,. Current Pain Medications: Neuropathics: Gabapentin 300mg TID NSAIDS: Muscle Relaxants: Flexeril 10mg TID prn Topicals: Other Prescription or OTC Pain Medications: Ambien 10mg Opioids (when applicable): Tolerating Medication: Yes Medications helping improve ADL's and Self-care: Yes Anti-depressants or Mood-Stabilizers: None Anti-Coagulants: None AG SPINE COMBINATION 09/19/2021 10/02/2022 01/15/2023 Questionnaire GREENLIGHT - - Completed Date 09/19/2021 - - Completed Date - - 01/15/2023 Comments - - Monitored Medication Informed Consent Questionnaire Opiod Risk Tool Opiod Risk Tool - Completed Date 09/19/2021 10/02/2022 - Comments 7 - - No question data found. (All drug screens are appropriate unless indicated otherwise) Therapies Attended (Current or Most Recent): No Current Therapies Notable Events During Course of Treatment: 09/19/2021 - Initial HPI (Obtained by Avis Marrufo APRN.RECREATION THERAPIST ). From 03/2022 - She previously inquired about increasing her Gabapentin, however due to her renal functions I advised we hold on this for now and continue her current dose From 03/2022 - She is more concerned about her multiple abdominal hernia's, she feels this likely contributes to her overall RIGHT flank pain. States she has seen nephrology and no treatment recommended. She does report frequent UTI's and generalized not feeling well. States this is not pain from her back. Treatment History: PAIN PROCEDURES: DATE PROCEDURE IMPROVEMENT 02/16/2023 GH Joint. Bilateral 95% right, 0% left (04/16/2023 ) 08/13/2022 SPRINT PNS Lumbar (Right) Nearly 100% (04/16/2023 ) 07/30/2022 SPRINT PNS Lumbar (Left) Nearly 100% (04/16/2023 ) 05/15/2022 TPI Only helped for a few days 03/12/22 RFA BL L4/5, L5/S1 95% x 4 months 01/08/2022 MBB Bilat L4-5,5-S1 80% x 4 hours (positive diagnostic) 12/25/2021 MBB Bilat L4-5,5-S1 80% x 4 hours (positive diagnostic) MEDICATIONS Taken TO DATE (for the chief complaint(s)): Neuropathics: Ne (more content not included)... [facility] 03-02-2023 Note HNO ID: [id number] Author: Rebekah Alexander APRN.RECREATION THERAPIST Service: ? Author Type: Nurse Practitioner Type: Progress Notes Filed: 03/02/2023 3:45 PM Note Text: VIRTUAL VISIT PROGRESS NOTE This is a virtual visit using Audio Only Visit. It required patient-provider interaction for the medical decision making as documented below. I have communicated my name and active licensure. The patient's identity and physical location were verified at the time of this visit. Either the patient or their legal environmental marketing representative has been informed of the risks and benefits of -- and alternatives to -- treatment through a remote evaluation and consents to proceed with the evaluation remotely. Ting Vega is a 82 year old female seen for shoulder pain, pain score 1-3/10 She had the bilateral GHJ USI with Dr. Jackson on 02/16/2023 that has helped the pain here by 50%. She is able to do a little more since the injection. She is even sleeping better. She is seeing Dr. Jackson in the near future to discuss possible SPR. Ht 157.5 cm (5' 2 ) Wt 104.3 kg (230 lb) BMI 42.07 kg/m? DATE PROCEDURE IMPROVEMENT 02/16/2023 bilateral GHJ 50% HISTORY REVIEWED (electronic chart updated): PAST MEDICAL HISTORY Diagnosis Date Chronic airway obstruction, not elsewhere classified Essential hypertension, benign Insomnia 07/30/2011 Obesity, unspecified Open wound of knee, leg (except thigh), and ankle, complicated Other pulmonary embolism and infarction Phlebitis and thrombophlebitis of femoral vein (deep) (superficial) ([facility]) Unspecified sleep apnea PAST SURGICAL HISTORY Procedure Laterality Date ANESTHESIA HERNIA REPAIR LOWER ABDOMEN NOS 04/2004,05/11 gortex put in on 05/11 then taken out06/08 ARTHRP KNE CONDYLEANDPLATU MEDIALANDLAT COMPARTMENTS 1990 bilateral total knee s([place]) ARTHRP KNE CONDYLEANDPLATU MEDIALANDLAT COMPARTMENTS 10/24/04 bilateral total knee revisions DELIVERY ONLY , low cervical CHOLECYSTECTOMY COLONOSCOPY FLX DX W/COLLJ SPEC WHEN PFRMD 11/17/2017 Colonoscopy DEBRIDEMENT SUBCUTANEOUS TISSUE 20 SQ CM/< 02/17/07 LEFT LEG DEBRIDEMENT SUBCUTANEOUS TISSUE 20 SQ CM/< [id number] LEFT LEG DEBRIDEMENT SUBCUTANEOUS TISSUE 20 SQ CM/< [id number] LEFT LEG DEBRIDEMENT SUBCUTANEOUS TISSUE 20 SQ CM/< [id number] LEFT LEG DEBRIDEMENT SUBCUTANEOUS TISSUE 20 SQ CM/< [id number] LEFT LEG DEBRIDEMENT SUBCUTANEOUS TISSUE 20 SQ CM/< 03/03/07 LEFT LEG ESOPHAGOGASTRODUODENOSCOPY TRANSORAL DIAGNOSTIC 11/17/2017 EGD GASTRIC BYPASS 07/08 HEMORRHOIDECTOMY INTERNAL RUBBER BAND LIGATIONS HYSTEROSCOPY BX W/WO DANDC 01/07/2018 PAST SURGICAL HISTORY OF 04/10/2016 Nancy and new knee cap put in right leg PAST SURGICAL HISTORY OF 04/25/2016 had to debri right leg wound with cellutitis infection FAMILY HISTORY Problem Relation Age of Onset Cancer Mother ovarian Social History Tobacco Use Smoking status: Former Packs/day: 0.25 Years: 1.00 Additional pack years: 0.00 Total pack years: 0.25 Types: Cigarettes Quit date: 04/06/1953 Years since quittin.9 Smokeless tobacco: Never Vaping Use Vaping Use: Never used Substance Use Topics Alcohol use: Yes Comment: occasionally Drug use: No Comment: used drugs for 3 years Current Outpatient Medications Medication Sig gabapentin (NEURONTIN) 300 mg capsule Take 1 capsule by mouth three times a day for 180 days. Take one pill 3 times per day zolpidem (AMBIEN) 10 mg Take 1 tablet by mouth at bedtime as needed for up to 90 days. GEMTESA 75 mg tablet Take 1 tablet by mouth every afternoon. furosemide (LASIX) 40 mg tablet Take 1 tablet by mouth once daily. cyclobenzaprine (FLEXERIL) 10 mg tablet Take 1 tablet by mouth three times daily as needed for muscle spasm. aspirin, enteric coated (ASPIRIN, ENTERIC COATED) 81 mg EC tablet Take 81 mg by mouth once daily. levothyroxine (LEVOXYL) 125 mcg tablet Take 1 tablet by mouth once daily. Take on empty stomach. For thyroid. amLODIPine (NORVASC) 5 mg tablet Take by mouth. omeprazole (PRILOSEC) 20 mg capsule TAKE 1 CAPSULE BY MOUTH ONCE DAILY tolterodine ER (DETROL LA) 4 mg 24 hr capsule TAKE 1 CAPSULE BY MOUTH ONCE DAILY acetaminophen (TYLENOL) 500 mg tablet Take 1,000 mg by mouth twice daily. Diaper,Brief, Adult,Disposable (DEPEND UNDERWEAR FOR WOMEN XL) Use 5/day as needed for urinary incontinence metoprolol succinate ER (TOPROL XL) 50 mg 24 hr tablet Take by mouth. Almjzxptxal-Umhdrhvxk-Msy C-Mn (GLUCOSAMINE CHONDROITIN MAXSTR) 500-400 mg cap Take 1 capsule by mouth three times daily. COMPOUNDED PRESCRIPTION Stair lift DAILY-LUISITO tablet TAKE 1 TABLET BY MOUTH ONCE DAILY. mvjweud-gqupdsthb-liuuevy D3 (CALCIUM 500+D) 500 mg(1,250mg) -200 unit per tablet Take 1 tablet by mouth twice daily with meals. vitamin b complex (B COMPLETE) tab Take 1 tablet by mouth once daily. hydrocortisone (ANUSOL-HC) 2.5 % rectal cream 1 application by RECTAL route twice daily. (more content not included)... [facility] 03-02-2023 History of Presen t illness Narrative VIRTUAL VISIT PROGRESS NOTE This is a virtual visit using Audio Only Visit. It required patient-provider interaction for the medical decision making as documented below. I have communicated my name and active licensure. The patient's identity and physical location were verified at the time of this visit. Either the patient or their legal environmental marketing representative has been informed of the risks and benefits of -- and alternatives to -- treatment through a remote evaluation and consents to proceed with the evaluation remotely. Ting Vega is a 82 year old female seen for shoulder pain, pain score 1-3/10 She had the bilateral GHJ USI with Dr. Jackson on 02/16/2023 that has helped the pain here by 50%. She is able to do a little more since the injection. She is even sleeping better. She is seeing Dr. Jackson in the near future to discuss possible SPR. Ht 157.5 cm (5' 2 ) Wt 104.3 kg (230 lb) BMI 42.07 kg/m DATE PROCEDURE IMPROVEMENT 02/16/2023 bilateral GHJ 50% HISTORY REVIEWED (electronic chart updated): PAST MEDICAL HISTORY Diagnosis Date Chronic airway obstruction, not elsewhere classified Essential hypertension, benign Insomnia 07/30/2011 Obesity, unspecified Open wound of knee, leg (except thigh), and ankle, complicated Other pulmonary embolism and infarction Phlebitis and thrombophlebitis of femoral vein (deep) (superficial) (HCC) Unspecified sleep apnea PAST SURGICAL HISTORY Procedure Laterality Date ANESTHESIA HERNIA REPAIR LOWER ABDOMEN NOS 04/2004,05/11 gortex put in on 05/11 then taken out06/08 ARTHRP KNE CONDYLE&PLATU MEDIAL&LAT COMPARTMENTS 1990 bilateral total knee s([place]) ARTHRP KNE CONDYLE&PLATU MEDIAL&LAT COMPARTMENTS 10/24/04 bilateral total knee revisions DELIVERY ONLY , low cervical CHOLECYSTECTOMY COLONOSCOPY FLX DX W/COLLJ SPEC WHEN PFRMD 11/17/2017 Colonoscopy DEBRIDEMENT SUBCUTANEOUS TISSUE 20 SQ CM/< 02/17/07 LEFT LEG DEBRIDEMENT SUBCUTANEOUS TISSUE 20 SQ CM/< [id number] LEFT LEG DEBRIDEMENT SUBCUTANEOUS TISSUE 20 SQ CM/< [id number] LEFT LEG DEBRIDEMENT SUBCUTANEOUS TISSUE 20 SQ CM/< [id number] LEFT LEG DEBRIDEMENT SUBCUTANEOUS TISSUE 20 SQ CM/< [id number] LEFT LEG DEBRIDEMENT SUBCUTANEOUS TISSUE 20 SQ CM/< 03/03/07 LEFT LEG ESOPHAGOGASTRODUODENOSCOPY TRANSORAL DIAGNOSTIC 11/17/2017 EGD GASTRIC BYPASS 07/08 HEMORRHOIDECTOMY INTERNAL RUBBER BAND LIGATIONS HYSTEROSCOPY BX W/WO D&C 01/07/2018 PAST SURGICAL HISTORY OF 04/10/2016 Nancy and new knee cap put in right leg PAST SURGICAL HISTORY OF 04/25/2016 had to debri right leg wound with cellutitis infection FAMILY HISTORY Problem Relation Age of Onset Cancer Mother ovarian Social History Tobacco Use Smoking status: Former Packs/day: 0.25 Years: 1.00 Additional pack years: 0.00 Total pack years: 0.25 Types: Cigarettes Quit date: 04/06/1953 Years since quittin.9 Smokeless tobacco: Never Vaping Use Vaping Use: Never used Substance Use Topics Alcohol use: Yes Comment: occasionally Drug use: No Comment: used drugs for 3 years Current Outpatient Medications Medication Sig gabapentin (NEURONTIN) 300 mg capsule Take 1 capsule by mouth three times a day for 180 days. Take one pill 3 times per day zolpidem (AMBIEN) 10 mg Take 1 tablet by mouth at bedtime as needed for up to 90 days. GEMTESA 75 mg tablet Take 1 tablet by mouth every afternoon. furosemide (LASIX) 40 mg tablet Take 1 tablet by mouth once daily. cyclobenzaprine (FLEXERIL) 10 mg tablet Take 1 tablet by mouth three times daily as needed for muscle spasm. aspirin, enteric coated (ASPIRIN, ENTERIC COATED) 81 mg EC tablet Take 81 mg by mouth once daily. levothyroxine (LEVOXYL) 125 mcg tablet Take 1 tablet by mouth once daily. Take on empty stomach. For thyroid. amLODIPine (NORVASC) 5 mg tablet Take by mouth. omeprazole (PRILOSEC) 20 mg capsule TAKE 1 CAPSULE BY MOUTH ONCE DAILY tolterodine ER (DETROL LA) 4 mg 24 hr capsule TAKE 1 CAPSULE BY MOUTH ONCE DAILY acetaminophen (TYLENOL) 500 mg tablet Take 1,000 mg by mouth twice daily. Diaper,Brief, Adult,Disposable (DEPEND UNDERWEAR FOR WOMEN XL) Use 5/day as needed for urinary incontinence metoprolol succinate ER (TOPROL XL) 50 mg 24 hr tablet Take by mouth. Ejifdmmksiw-Ylvqzsrvd-Wnt C-Mn (GLUCOSAMINE CHONDROITIN MAXSTR) 500-400 mg cap Take 1 capsule by mouth three times daily. COMPOUNDED PRESCRIPTION Stair lift DAILY-LUISITO tablet TAKE 1 TABLET BY MOUTH ONCE DAILY. yxlhqgm-ywlrvldaa-zoebjqt D3 (CALCIUM 500+D) 500 mg(1,250mg) -200 unit per tablet Take 1 tablet by mouth twice daily with meals. vitamin b complex (B COMPLETE) tab Take 1 tablet by mouth once daily. hydrocortisone (ANUSOL-HC) 2.5 % rectal cream 1 application by RECTAL route twice daily. calcium acetate (PHOSLO) 667 mg capsule TAKE 1 CAPSULE BY MOUTH THREE TIMES DAILY. Magnesium 200 mg tab Take 200 mg by mouth once daily. Zinc 50 mg tab Take 1 tablet by mouth once daily. cholecalciferol (VITAMIN D3) 1,000 unit tab tablet Take 2 tablets by mouth once daily. senna-docusate (SENNA-S) 8.6-50 mg per tablet Take 1 tablet by mouth once daily. ascorbic acid(VITAMIN C 500 MG TAB) Take one(1) tablet daily. VITAMIN E 400 UNIT CAP Take one(1) tablet twice daily. pyridoxine hcl(VITAMIN B-6 100 MG TAB) Take one(1) tablet daily. CENTRUM PERFORMANCE TAB Take one(1) tablet daily. No current facility-administered medications for this visit. ALLERGIES Allergen Reactions Bactrim [Sulfametho* Hives Blisters: head to toe Ibuprofen Rash Kefzol [Cefazolin S* Hives Peanut Butter [Othe* throat swelling, convulsions Sulfa (Sulfonamide * Hives, Unknown Blisters: head to toe REVIEW OF SYSTEMS: GENERAL: no fever HEENT: no nasal congestion or rhinorrhea NECK: denies swelling or pain in neck RESPIRATORY: no cough, no wheezing or shortness of breath CARDIOVASCULAR: no chest pain, no palpitations GI: no abdominal pain : urination is normal MUSCULOSKELETAL: as above, no other joint pain/muscle ache SKIN: no rash PSYCH: sleep is normal HEMATOLOGY/LYMPHOLOGY: negative for prolonged bleeding ENDOCRINE: denies cold/heat intolerance NEURO: no numbness or paresthesias and no weakness of the extremities PHYSICAL EXAMINATION: VIDEO EXAM: (if completed, performed via video enabled technology) None done ASSESSMENT: (M19.011, M19.012) Primary osteoarthritis of both shoulders (primary encounter diagnosis) PLAN: She is doing well from the steroid injection for the GHJ. We could consider SPR but she would need a diagnostic suprascapular block first. She is going to discuss this further with Dr. Jackson in a few weeks Patient Instructions Ice and heat as tolerated Activity as tolerated I spent a total of 15 minutes on the date of the service which included preparing to see the patient, imhr-ly-vqod patient care, and completing clinical documentation Rebekah Alexander APRN.CJ I have communicated my name and active licensure. The patient's identity and physical location were verified at the time of this visit. Either the patient or their legal environmental marketing representative has been informed of the risks and benefits of -- and alternatives to -- treatment through a remote evaluation and consents to proceed with the evaluation remotely. documented in this encounter [facility] 03-02-2023 Instructions Rebekah Alexander APRN.CNP - 03/02/2023 6:59 AM EST Ice and heat as tolerated Activity as tolerated documented in this encounter [facility] 02-16-2023 Note HNO ID: [id number] Author: Octavio Robbins LPN Service: ? Author Type: LICENSED NURSE Type: Progress Notes Filed: 02/16/2023 12:55 PM Note Text: Review of Systems Constitutional: Negative for activity change, chills, fever and unexpected weight change. Gastrointestinal: Negative for bowel retention or incontinence Genitourinary: Negative for difficulty urinating. Negative for bladder retention or incontinence Musculoskeletal: Positive for arthralgias, gait problem and joint swelling. Negative for back pain, myalgias, neck pain and neck stiffness. Neurological: Negative for weakness, numbness and headaches. Psychiatric/Behavioral: Positive for sleep disturbance. Negative for dysphoric mood and suicidal ideas. The patient is not nervous/anxious. [facility] 02-16-2023 Note HNO ID: [id number] Author: Roque Jackson MD Service: ? Author Type: Physician Type: Progress Notes Filed: 02/16/2023 12:55 PM Note Text: [facility] [facility], [facility] Date: 02/16/2023 Patient name: Ting Vega Physician performing procedure: Roque Jackson M.D., M.B.A. Diagnosis: (M19.011, M19.012) Primary osteoarthritis of both shoulders (primary encounter diagnosis) Procedure: Glenohumeral (Shoulder) Joint Injection under fluoroscopic guidance BILATERAL SIDES Injectate: A total of 10 ml volume was injected The injectate consisted of: 2 ml of Depo-Medrol (40mg/ml), The remainder consisting of 2% Lidocaine, . Each site received equal volumes of this injectate. Comments: None Improvement after today's procedure: as per nursing report HPI: Ting Vega is an 82 year old FEMALE who presents today, in pain, for the procedure noted above. Review of Systems: Pertinent Positives: MSK: pain in the region being treated Neuro: no weakness or numbness in the region being treated Skin: Negative (No itching) Eyes: Negative (No blurred or double vision) Respiratory: Negative (No Cough, Rampeerwn-io-yapwwc, Dyspnea on exertion, wheezing) Cardiovascular: Negative (No Chest Pain, Tightness, Pressure, Palpitations) Gastrointestinal: Negative (No Abdominal pain, Nausea, Vomiting, Constipation, Diarrhea) Genitourinary: Negative (No dysuria) Hematologic: Negative (No bleeding, bruising) OB: is Denied or Not Applicable Endocrine: Negative (No hot/cold intolerance) Psychiatric: Negative (No depression, anxiety or suicidal ideation) PAST MEDICAL HISTORY Diagnosis Date Chronic airway obstruction, not elsewhere classified Essential hypertension, benign Insomnia 07/30/2011 Obesity, unspecified Open wound of knee, leg (except thigh), and ankle, complicated Other pulmonary embolism and infarction Phlebitis and thrombophlebitis of femoral vein (deep) (superficial) (HCC) Unspecified sleep apnea PAST SURGICAL HISTORY Procedure Laterality Date ANESTHESIA HERNIA REPAIR LOWER ABDOMEN NOS 04/2004,05/11 gortex put in on 05/11 then taken out06/08 ARTHRP KNE CONDYLEANDPLATU MEDIALANDLAT COMPARTMENTS 1990 bilateral total knee s([place]) ARTHRP KNE CONDYLEANDPLATU MEDIALANDLAT COMPARTMENTS 10/24/04 bilateral total knee revisions DELIVERY ONLY , low cervical CHOLECYSTECTOMY COLONOSCOPY FLX DX W/COLLJ SPEC WHEN PFRMD 11/17/2017 Colonoscopy DEBRIDEMENT SUBCUTANEOUS TISSUE 20 SQ CM/< 02/17/07 LEFT LEG DEBRIDEMENT SUBCUTANEOUS TISSUE 20 SQ CM/< [id number] LEFT LEG DEBRIDEMENT SUBCUTANEOUS TISSUE 20 SQ CM/< [id number] LEFT LEG DEBRIDEMENT SUBCUTANEOUS TISSUE 20 SQ CM/< [id number] LEFT LEG DEBRIDEMENT SUBCUTANEOUS TISSUE 20 SQ CM/< [id number] LEFT LEG DEBRIDEMENT SUBCUTANEOUS TISSUE 20 SQ CM/< 03/03/07 LEFT LEG ESOPHAGOGASTRODUODENOSCOPY TRANSORAL DIAGNOSTIC 11/17/2017 EGD GASTRIC BYPASS 07/08 HEMORRHOIDECTOMY INTERNAL RUBBER BAND LIGATIONS HYSTEROSCOPY BX W/WO DANDC 01/07/2018 PAST SURGICAL HISTORY OF 04/10/2016 Nancy and new knee cap put in right leg PAST SURGICAL HISTORY OF 04/25/2016 had to debri right leg wound with cellutitis infection FAMILY HISTORY Problem Relation Age of Onset Cancer Mother ovarian Social History Tobacco Use Smoking status: Former Packs/day: 0.25 Years: 1.00 Additional pack years: 0.00 Total pack years: 0.25 Types: Cigarettes Quit date: 04/06/1953 Years since quittin.9 Smokeless tobacco: Never Vaping Use Vaping Use: Never used Substance Use Topics Alcohol use: Yes Comment: occasionally Drug use: No Comment: used drugs for 3 years Current Outpatient Medications on File Prior to Visit Medication Sig gabapentin (NEURONTIN) 300 mg capsule Take 1 capsule by mouth three times a day for 180 days. Take one pill 3 times per day zolpidem (AMBIEN) 10 mg Take 1 tablet by mouth at bedtime as needed for up to 90 days. GEMTESA 75 mg tablet Take 1 tablet by mouth every afternoon. furosemide (LASIX) 40 mg tablet Take 1 tablet by mouth once daily. cyclobenzaprine (FLEXERIL) 10 mg tablet Take 1 tablet by mouth three times daily as needed for muscle spasm. aspirin, enteric coated (ASPIRIN, ENTERIC COATED) 81 mg EC tablet Take 81 mg by mouth once daily. levothyroxine (LEVOXYL) 125 mcg tablet Take 1 tablet by mouth once daily. Take on empty stomach. For thyroid. amLODIPine (NORVASC) 5 mg tablet Take by mouth. omeprazole (PRILOSEC) 20 mg capsule TAKE 1 CAPSULE BY MOUTH ONCE DAILY tolterodine ER (DETROL LA) 4 mg 24 hr capsule TAKE 1 CAPSULE BY MOUTH ONCE DAILY acetaminophen (TYLENOL) 500 mg tablet Take 1,000 mg by mouth twice daily. Diaper,Brief, Adult,Disposable (DEPEND UNDERWEAR FOR WOMEN XL) Use 5/day as needed for urinary incontinence metoprolol succinate ER (TOPROL XL) 50 mg 24 hr tablet Take by mouth. Glucosamine-Chondroit (more content not included)... [facility] 02-16-2023 Nurse Note Order has been placed in the patient's chart with the following parameters for discharge from the physician: Patient is alert and oriented Vitals: Diastolic/Systolic +/- 20mmHg Respirations: 12-18 Pulse: 60-100 SpO2 is greater than or equal to 90% Patient has no nausea or vomiting Patient has no dizziness Pain level is +/- 2 from initial evaluation Dressing, dry and intact with no evidence of bleeding Criteria has been met, patient is okay to be discharged per the physician. Physician has gone in and evaluated the patient. Dressing dry and intact. No drainage noted. The patient denies nausea, numbness, tingling, weakness, shortness of breath, dizziness, or headache. Pain level 7/10. Vital signs within normal limits. Patient denied needing walked out by clinical staff and denied needing a wheelchair. Patient given discharge instructions and sent to transportation via ambulatory method. Patient left in good condition. Procedure to be performed: BILATERAL GLENOHUMERAL JOINT INJECTION Patient was wheeled on stretcher from pre op bay to procedure room and assisted onto the procedure tablePatient s procedure was performed in an [facility] Procedure room. Pause completed at each level by provider to verify correct level and laterality placement Pressure was applied to patient s injection site(s) and bleeding was minimal. Patient had no complaint of shortness of breath, dizziness, headache, numbness, tingling, weakness or complications from procedure. Patient was assisted from the procedure table onto the stretcher and wheeled into a post op bay. Patient was advised a clinician will be to obtain another set of vitals. Time Out: 1146 Confirmed patient name, date of , procedure site, laterality, and allergies Procedure Start: 1149 Procedure End: 1157 Party Chief's Name: N/A Are you on a blood thinner: n If yes, is a hold required: n Last dose of blood thinner: n INR Result today: n Do you require a Lovenox bridge:n Are you a diabetic:n Are you/or could you be : n Are you taking Xanax for the procedure: n Are you currently on a steroid? n Are you currently on an antibiotic: n Have you had a COVID-19 vaccine in the last 14 days Or are you scheduled to receive one? n documented in this encounter [facility] 02-16-2023 Instructions Raheel Cano LPN - 02/16/2023 11:49 AM EST PROCEDURE DISCHARGE INSTRUCTIONS 02/16/2023 Ting Vega 1940 Physician: Roque Jackson MD Procedure: Other: Glenohumeral joint injection Post Procedure Instructions: Rest the day of the procedure., You may resume normal activities the day after the procedure, as tolerated., Pain should gradually subside over the next 2-3 weeks., Avoid movements that may aggravate pain., Apply cold compresses to injection site if needed., If medically acceptable, take over the counter anti-inflammatories such as ibuprofen or Aleve if needed for post procedure discomfort., and No hot baths, hot tubs or hot compresses for 24 hours. If you have any of the following signs or symptoms, please call our office at Fever and/or chills Swelling and/or drainage from injection site New pain that is different than your normal pain (other than soreness at the site of the procedure) Stiff neck Shortness of breath Severe increase in pain Motor dysfunctions, such as difficulty walking, bowel or bladder dysfunction and/or incontinence Headache that is severe, light sensitive or develops when changing positions (positional headache) Nausea and/or vomiting accompanied by headache that started 24-48 hours after the procedure If you have any emergent concerns, please call 911 or go to your local emergency room. Please also contact our office to let us know you will be seeking emergency care and why. documented in this encounter [facility] 02-16-2023 History of Presen t illness Narrative Review of Systems Constitutional: Negative for activity change, chills, fever and unexpected weight change. Gastrointestinal: Negative for bowel retention or incontinence Genitourinary: Negative for difficulty urinating. Negative for bladder retention or incontinence Musculoskeletal: Positive for arthralgias, gait problem and joint swelling. Negative for back pain, myalgias, neck pain and neck stiffness. Neurological: Negative for weakness, numbness and headaches. Psychiatric/Behavioral: Positive for sleep disturbance. Negative for dysphoric mood and suicidal ideas. The patient is not nervous/anxious. [facility] Date: 02/16/2023 Patient name: Ting Vega Physician performing procedure: Roque Jackson M.D., M.B.A. Diagnosis: (M19.011, M19.012) Primary osteoarthritis of both shoulders (primary encounter diagnosis) Procedure: Glenohumeral (Shoulder) Joint Injection under fluoroscopic guidance BILATERAL SIDES Injectate: A total of 10 ml volume was injected The injectate consisted of: 2 ml of Depo-Medrol (40mg/ml), The remainder consisting of 2% Lidocaine, . Each site received equal volumes of this injectate. Comments: None Improvement after today's procedure: as per nursing report HPI: Ting Vega is an 82 year old FEMALE who presents today, in pain, for the procedure noted above. Review of Systems: Pertinent Positives: MSK: pain in the region being treated Neuro: no weakness or numbness in the region being treated Skin: Negative (No itching) Eyes: Negative (No blurred or double vision) Respiratory: Negative (No Cough, Sttengzud-kl-zyspei, Dyspnea on exertion, wheezing) Cardiovascular: Negative (No Chest Pain, Tightness, Pressure, Palpitations) Gastrointestinal: Negative (No Abdominal pain, Nausea, Vomiting, Constipation, Diarrhea) Genitourinary: Negative (No dysuria) Hematologic: Negative (No bleeding, bruising) OB: is Denied or Not Applicable Endocrine: Negative (No hot/cold intolerance) Psychiatric: Negative (No depression, anxiety or suicidal ideation) PAST MEDICAL HISTORY Diagnosis Date Chronic airway obstruction, not elsewhere classified Essential hypertension, benign Insomnia 07/30/2011 Obesity, unspecified Open wound of knee, leg (except thigh), and ankle, complicated Other pulmonary embolism and infarction Phlebitis and thrombophlebitis of femoral vein (deep) (superficial) (HCC) Unspecified sleep apnea PAST SURGICAL HISTORY Procedure Laterality Date ANESTHESIA HERNIA REPAIR LOWER ABDOMEN NOS 04/2004,05/11 gortex put in on 05/11 then taken out06/08 ARTHRP KNE CONDYLE&PLATU MEDIAL&LAT COMPARTMENTS 1990 bilateral total knee s([place]) ARTHRP KNE CONDYLE&PLATU MEDIAL&LAT COMPARTMENTS 10/24/04 bilateral total knee revisions DELIVERY ONLY , low cervical CHOLECYSTECTOMY COLONOSCOPY FLX DX W/COLLJ SPEC WHEN PFRMD 11/17/2017 Colonoscopy DEBRIDEMENT SUBCUTANEOUS TISSUE 20 SQ CM/< 02/17/07 LEFT LEG DEBRIDEMENT SUBCUTANEOUS TISSUE 20 SQ CM/< [id number] LEFT LEG DEBRIDEMENT SUBCUTANEOUS TISSUE 20 SQ CM/< [id number] LEFT LEG DEBRIDEMENT SUBCUTANEOUS TISSUE 20 SQ CM/< [id number] LEFT LEG DEBRIDEMENT SUBCUTANEOUS TISSUE 20 SQ CM/< [id number] LEFT LEG DEBRIDEMENT SUBCUTANEOUS TISSUE 20 SQ CM/< 03/03/07 LEFT LEG ESOPHAGOGASTRODUODENOSCOPY TRANSORAL DIAGNOSTIC 11/17/2017 EGD GASTRIC BYPASS 07/08 HEMORRHOIDECTOMY INTERNAL RUBBER BAND LIGATIONS HYSTEROSCOPY BX W/WO D&C 01/07/2018 PAST SURGICAL HISTORY OF 04/10/2016 Nancy and new knee cap put in right leg PAST SURGICAL HISTORY OF 04/25/2016 had to debri right leg wound with cellutitis infection FAMILY HISTORY Problem Relation Age of Onset Cancer Mother ovarian Social History Tobacco Use Smoking status: Former Packs/day: 0.25 Years: 1.00 Additional pack years: 0.00 Total pack years: 0.25 Types: Cigarettes Quit date: 04/06/1953 Years since quittin.9 Smokeless tobacco: Never Vaping Use Vaping Use: Never used Substance Use Topics Alcohol use: Yes Comment: occasionally Drug use: No Comment: used drugs for 3 years Current Outpatient Medications on File Prior to Visit Medication Sig gabapentin (NEURONTIN) 300 mg capsule Take 1 capsule by mouth three times a day for 180 days. Take one pill 3 times per day zolpidem (AMBIEN) 10 mg Take 1 tablet by mouth at bedtime as needed for up to 90 days. GEMTESA 75 mg tablet Take 1 tablet by mouth every afternoon. furosemide (LASIX) 40 mg tablet Take 1 tablet by mouth once daily. cyclobenzaprine (FLEXERIL) 10 mg tablet Take 1 tablet by mouth three times daily as needed for muscle spasm. aspirin, enteric coated (ASPIRIN, ENTERIC COATED) 81 mg EC tablet Take 81 mg by mouth once daily. levothyroxine (LEVOXYL) 125 mcg tablet Take 1 tablet by mouth once daily. Take on empty stomach. For thyroid. amLODIPine (NORVASC) 5 mg tablet Take by mouth. omeprazole (PRILOSEC) 20 mg capsule TAKE 1 CAPSULE BY MOUTH ONCE DAILY tolterodine ER (DETROL LA) 4 mg 24 hr capsule TAKE 1 CAPSULE BY MOUTH ONCE DAILY acetaminophen (TYLENOL) 500 mg tablet Take 1,000 mg by mouth twice daily. Diaper,Brief, Adult,Disposable (DEPEND UNDERWEAR FOR WOMEN XL) Use 5/day as needed for urinary incontinence metoprolol succinate ER (TOPROL XL) 50 mg 24 hr tablet Take by mouth. Wjrjwnbrnjf-Yocemrfmp-Nwu C-Mn (GLUCOSAMINE CHONDROITIN MAXSTR) 500-400 mg cap Take 1 capsule by mouth three times daily. COMPOUNDED PRESCRIPTION Stair lift DAILY-LUISITO tablet TAKE 1 TABLET BY MOUTH ONCE DAILY. endvzay-hrcilrkop-rhscahn D3 (CALCIUM 500+D) 500 mg(1,250mg) -200 unit per tablet Take 1 tablet by mouth twice daily with meals. vitamin b complex (B COMPLETE) tab Take 1 tablet by mouth once daily. hydrocortisone (ANUSOL-HC) 2.5 % rectal cream 1 application by RECTAL route twice daily. calcium acetate (PHOSLO) 667 mg capsule TAKE 1 CAPSULE BY MOUTH THREE TIMES DAILY. Magnesium 200 mg tab Take 200 mg by mouth once daily. Zinc 50 mg tab Take 1 tablet by mouth once daily. cholecalciferol (VITAMIN D3) 1,000 unit tab tablet Take 2 tablets by mouth once daily. senna-docusate (SENNA-S) 8.6-50 mg per tablet Take 1 tablet by mouth once daily. ascorbic acid(VITAMIN C 500 MG TAB) Take one(1) tablet daily. VITAMIN E 400 UNIT CAP Take one(1) tablet twice daily. pyridoxine hcl(VITAMIN B-6 100 MG TAB) Take one(1) tablet daily. CENTRUM PERFORMANCE TAB Take one(1) tablet daily. No current facility-administered medications on file prior to visit. Objective Exam: Vitals: As per nursing documentation Constitutional: Normal Appearance, Oriented to Time, Place and Person Head: No lacerations, no external signs of trauma Eyes: Conjunctiva clear. No discharge from the eyes Cardiovascular: Appears well-perfused Pulmonary: Non-labored respirations Abdominal: Non-distended Skin: No visible rashes or ecchymosis Psychiatric: Mood appropriate for given condition Neurological: Gross movements are limited by pain, but otherwise unremarkable Data Reviewed: Nursing note and vitals reviewed. Additional imaging reviewed as appropriate Assessment and Plan: As noted above [facility] protocol documentation / Pre-Procedure Checklist: Consent: Obtained in writing prior to procedure I had a nice discussion with the patient today about their current pain and the pathology that could be causing it We discussed different treatment options, including risks, benefits and alternatives. We agreed to proceed as previously discussed, or the plan was modified in accordance with the comments noted above Unless stated otherwise in the procedure note, the risks include but are not limited to infection, allergic reaction, increased pain, lack of therapeutic benefit, steroid reaction, nerve damage, paralysis, stroke, epidural hematoma, syncope, headache, respiratory or cardiac arrest, pneumothorax, and scar formation Once the plan was agreed upon, the patient gave written consent to proceed and was transported into the procedure room Surgical/Procedure pause or Time Out : Time Out was led by the physician in the procedure room, with the patient and all staff present and participating The following information was verified during the Time Out process: Patient name, patient date of , procedure site (marked), laterality, anticoagulants and allergies Procedure: The patient was prepped and draped in a sterile fashion in the supine position, with the forearm supinated and at the patient's side, after informed consent was signed and all patient questions were answered including the risks, benefits, alternative treatment options, and prognosis. The risks are as mentioned above. A single contrast technique was used. After preliminary fluoroscopic images of the shoulder were obtained, the glenohumeral joint was localized. A 25 gauge, 1.5 inch needle was used to anesthetize the skin with 3-5 cc of 1% Lidocaine. A 22 gauge, 3.5 inch needle was inserted toward the superior 1/3 of the humeral head at the intersection point of lines drawn horizontally from the coracoid process and vertically from the AC joint. 3-5cc of contrast was injected while observing the flow of the contrast, which obtained an excellent outline of the glenohumeral joint. The needle was withdrawn, and the patient was asked to perform mild exercises including internal and external rotation. Appropriate radiographs were obtained with results as described above. Please see the nursing note for exact times (time out, procedure start, procedure end). After careful removal of the needle, there was minimal bleeding. The injection site was covered with appropriate sterile dressing. The patient was noted to have tolerated the procedure well and was discharged after an appropriate period of post-procedure observation. The patient was instructed to contact us if there were any complications. The patient was advised to follow-up with the requesting physician within one to two weeks or as per their requested follow-up plan. Post procedure visit summary with written instructions was offered to the patient. Roque Jackson MD, MBA Pain Management [facility] documented in this encounter [facility] 01-15-2023 Note HNO ID: [id number] Author: Allison Garcia RT(R) Service: ? Author Type: Technologist Type: Progress Notes Filed: 01/15/2023 11:29 AM Note Text: Radiology Service Progress Note PATIENT NAME: Ting Vega DATE OF SERVICE: January 15, 2023 TIME: 11:24 AM PATIENT IDENTITY VERIFICATION COMPLETED USING TWO (2) IDENTIFIERS: Name and Date of confirmed by patient verbally. FALL SCREENING: Has the patient had 2 falls in the last year or 1 fall with injury or currently using an Ambulatory Assistive Device (Walker, Cane, Wheelchair, Crutches, etc.)? No PATIENT GENDER DATA: Female. status: : No status: NO. PATIENT RELEVANT IMPLANT DATA REVIEWED: Not Applicable RADIOLOGY DEPARTMENT: General X-ray: Exam(s) Completed: Upper Extremity X-Ray(s): Shoulder, AP / TRUE AP bilateral PERIPHERAL IV DATA: Not applicable SIGNED BY: RT Eboni(R) January 15, 2023 11:24 AM [facility] 01-15-2023 Note HNO ID: [id number] Author: Kerrie Guthrie LPN Service: ? Author Type: LICENSED NURSE Type: Progress Notes Filed: 01/15/2023 8:58 AM Note Text: Review of Systems Constitutional: Negative for activity change, chills, fever and unexpected weight change. Gastrointestinal: Negative for bowel retention or incontinence Genitourinary: Negative for difficulty urinating. Negative for bladder retention or incontinence Musculoskeletal: Positive for arthralgias, back pain and joint swelling. Negative for gait problem, myalgias, neck pain and neck stiffness. Neurological: Negative for weakness, numbness and headaches. Psychiatric/Behavioral: Negative for dysphoric mood, sleep disturbance and suicidal ideas. The patient is not nervous/anxious. [facility] 01-15-2023 History of Presen t illness Narrative Radiology Service Progress Note PATIENT NAME: Ting Vega DATE OF SERVICE: January 15, 2023 TIME: 11:24 AM PATIENT IDENTITY VERIFICATION COMPLETED USING TWO (2) IDENTIFIERS: Name and Date of confirmed by patient verbally. FALL SCREENING: Has the patient had 2 falls in the last year or 1 fall with injury or currently using an Ambulatory Assistive Device (Walker, Cane, Wheelchair, Crutches, etc.)? No PATIENT GENDER DATA: Female. status: : No status: NO. PATIENT RELEVANT IMPLANT DATA REVIEWED: Not Applicable RADIOLOGY DEPARTMENT: General X-ray: Exam(s) Completed: Upper Extremity X-Ray(s): Shoulder, AP / TRUE AP bilateral PERIPHERAL IV DATA: Not applicable SIGNED BY: RT Eboni(R) January 15, 2023 11:24 AM documented in this encounter [facility] 01-15-2023 Miscellaneous Notes Procedure(s) being scheduled: 1.Are you diabetic No 2. Are you on any blood thinners? No If yes, does it require a hold? No If yes, was approval letter sent? No 3. Are you taking any aspirin? Yes. Please list the current medications being prescribed 81mg. 4. Are you currently taking any antibiotics? No If yes, is it prophylactic or for treatment of an infection? NA 5. Do you have any allergies to latex? No 6. Do you have any allergies to seafood or shellfish? No 7. Do you have any allergies to x-ray dye? No 8. Did the physician instruct you to take any medication prior to your procedure? No 9. Does this procedure require a motor bus driver? No If yes, has patient been notified that a motor bus driver is needed and must be present at check in? NA 10. Were the pre-procedure instructions explained and provided to the patient? Yes 11. Do you have a pacemaker? No 12. Do you have an internal stimulator of any kind? No If yes, please bring the remote with you to your procedure visit. 13. Have you received the COVID-19 Vaccine? Yes. If yes, date(s) received: 12/2021 (Patient should not receive a procedure including steroids 14 days prior to their first dose of the COVID vaccine. They should not receive any procedure containing steroids in the time frame between their 1st and 2nd doses of the COVID vaccine. They should not receive a procedure containing steroids 14 days after their 2nd dose of the COVID vaccine.) Jennifer De Leon documented in this encounter [facility] 01-15-2023 History of Presen t illness Narrative Review of Systems Constitutional: Negative for activity change, chills, fever and unexpected weight change. Gastrointestinal: Negative for bowel retention or incontinence Genitourinary: Negative for difficulty urinating. Negative for bladder retention or incontinence Musculoskeletal: Positive for arthralgias, back pain and joint swelling. Negative for gait problem, myalgias, neck pain and neck stiffness. Neurological: Negative for weakness, numbness and headaches. Psychiatric/Behavioral: Negative for dysphoric mood, sleep disturbance and suicidal ideas. The patient is not nervous/anxious. Images from the original note were not included. [facility] Name: Ting Vega : 1940 Purpose: 3-month follow-up Today's Date: 01/15/2023 Last Visit: 10/16/2022 Chief complaint: Thoracic and low back Pain Ting Vega is an established patient, returning today for continued evaluation and management of the chief complaint noted above. Interval History: Overall pain and functional disability: improved New Complaints: None She reports 100% relief of her low back and thoracic pain since the SPRINT PNS treatment. Other than a little stiffness in the morning, she has no low back pain. She has pain in both (right > left) shoulders when she works out, lifts heavy groceries, or uses her arms to support herself when ascending stairs. Pain is localized to the upper and lateral shoulders. She is exercising regularly. She has lost 76 pounds since July,. Medications Prescribed: Started or modified: none Discontinued: none Maintained at current dosages: Gabapentin 300mg TID Flexeril 10mg TID prn Tolerating Medication: yes Medications helping improve ADL's and Self-care: yes Procedures Performed: DATE PROCEDURE IMPROVEMENT 08/13/2022 SPRINT PNS Lumbar (Right) Nearly 100% (01/15/2023 ) 07/30/2022 SPRINT PNS Lumbar (Left) Nearly 100% (01/15/2023 ) Therapies Attended: none Studies Obtained: none (relevant findings reported below) Recall: From 03/2022 - She previously inquired about increasing her Gabapentin, however due to her renal functions I advised we hold on this for now and continue her current dose From 03/2022 - She is more concerned about her multiple abdominal hernia's, she feels this likely contributes to her overall RIGHT flank pain. States she has seen nephrology and no treatment recommended. She does report frequent UTI's and generalized not feeling well. States this is not pain from her back. Current Status: INTAKE PAIN ASSESSMENT 10/16/2022 01/15/2023 Are you having pain associated with your visit today? Yes, Provider notified Yes, Provider notified Pain Scales Verbal (Numeric Rating or Visual Analog Scale) Verbal (Numeric Rating or Visual Analog Scale) Pain Level 0 1 Pain Location - Back Description - Aching Duration Amount of Time - - Duration Units Months Years Frequency Intermittent Intermittent Intervention/Comfort measure Medication;Reposition;Relaxation (No Data) Comments - - Pain Assessment - - Current Anti-Coagulant Use: No Risk Assessment: SANDRA-7: SANDRA - 7 SCORES 09/19/2021 SANDRA-7 Score 7 (0-4) minimal anxiety, (5-9) mild anxiety, (10-14) moderate anxiety, (15-21) severe anxiety PHQ-9: PHQ-9 09/19/2021 Score 4 (0-4) minimal depression, (5-9) mild depression, (10-14) moderate depression, (15-19) moderately severe depression, (20-27) severe depression Compliance: PDMP website checked and validated. All prescriptions have been APPROPRIATELY filled. No suspicious activity was identified. On 01/15/2023 by MD Eliazar Mathias (current) Allergies: ALLERGIES Allergen Reactions Bactrim [Sulfametho* Hives Blisters: head to toe Ibuprofen Rash Kefzol [Cefazolin S* Hives Peanut Butter [Othe* throat swelling, convulsions Sulfa (Sulfonamide * Hives, Unknown Blisters: head to toe Data Reviewed: Reviewed personally on today's date. Relevant Imaging: X-ray right foot 07/2022: No acute process X-ray Lt. Elbow, Rt. Hip 05/2022 Left elbow: Good alignment no fracture. Some degenerative changes. No effusion. Right hip: Well-maintained. No discrete fracture identified. Bony pelvis intact. Degenerative change left hip. Degenerative changes are noted in the lower lumbar spine. There is a nancy in the visualized mid femoral shaft on right side. MRI Thoracic/Lumbar Spine 04/2022 THORACIC: Counting reference: Craniocervical and lumbosacral junctions. For the purposes of this report, L4-5 is considered the level of the iliac crest and assume there are 5 lumbar-type vertebrae. Anatomic variant: None. Localizer images: Degenerative changes in bilateral shoulders. Bilateral renal cysts. Alignment: Exaggerated thoracic kyphosis. Cord: The thoracic spinal cord is within normal limits of signal intensity and morphology. Bone marrow signal/fracture: Scattered T2 and T1 hyperintense subcentimeter intervertebral lesions, likely hemangiomas. Multilevel eccentric anterior bridging osteophytes, compatible with DISH. No evidence of pathologic marrow infiltration. No evidence of prior fracture. Thoracic soft tissues: The paraspinal soft tissues are within normal limits. Canal and foramina: Facet arthrosis and ligamentum flavum thickening causing minimal left-sided T9-T10 neuroforamina and T10-T11 minimal left-sided neural foraminal narrowing. Otherwise, the thoracic canal and foramina are patent within the constraints of the study. LUMBAR: Counting reference: Craniocervical and lumbosacral junctions. For the purposes of this report, L4-5 is considered the level of the iliac crest and assume there are 5 lumbar-type vertebrae. Anatomic variant: None. Localizer images: Bilateral renal cysts. Alignment: Mild lumbar levoscoliosis with apex at L3-L4. And minimal grade 1 L4 on L5 anterolisthesis. Bone marrow signal/fracture: No evidence of pathologic marrow infiltration. No evidence of prior fracture. Conus: The conus is within normal limits of signal intensity and morphology. Paraspinal soft tissues: Paraspinal soft tissues are within normal limits. L1-L2: Canal and foramina are patent. L2-L3: Bulging disc and facet arthrosis tenting the thecal sac posteriorly mildly narrowing the spinal canal and causing mild left neural foraminal narrowing. Right neuroforamen is patent. L3-L4: Bulging disc and facet arthrosis denting the thecal sac posteriorly and causing mild right neuroforaminal narrowing. Spinal canal is patent. L4-L5: Bulging disc, facet arthrosis and ligamentum flavum thickening causing mild to moderate spinal canal narrowing and mild to moderate right neural foramina and mild left neural foramina narrowing. L5-S1: Bulging disc, facet arthrosis causing mild to moderate left-sided neural foraminal narrowing and mild right-sided neural foraminal narrowing. Spinal canal is patent. Sacrum and iliac wings: The visualized sacrum and iliac wings are within normal limits. The presacral soft tissues are normal in appearance. Multilevel lumbar spondylosisas outlined. Spinal canal stenosis is worst at L4-L5 causing (mild to moderate). Foraminal stenosis is worst at L4-5 and L5-S1 (mild to moderate). Exaggerated thoracic kyphosis. Multilevel eccentric anterior bridging osteophytes, compatible with DISH. Spondylosis without high-grade thoracic spinal canal or foraminal narrowing. X-ray Thoracic/Lumbar Spine 09/2021 Thoracic: No acute fractures or subluxations are noted. Generalized disc space narrowing is visualized. There is significant osteophyte formation. The bones are somewhat osteopenic. There is no paraspinal mass or bony destructive process. Lumbar: There are five vhp-vyd-yktncor lumbar vertebrae. No acute fracture or subluxations are noted. No change in alignment of the lumbar spine with lateral extension and lateral flexion. There is left-sided curvature/levoscoliosis. Disc space narrowing involving all levels. There is significant osteophyte formation, with facet arthrosis. Kissing spine seen on lateral view. X-ray Ribs 07/2021 RESULT: Frontal radiograph of the chest and dedicated views of the left ribs show no evidence of pneumothorax, hemothorax or pulmonary contusion. The visualized bony structures are intact without apparent displaced or nondisplaced rib fracture. CT Abd/Pelvis 07/2021 Bones/Soft Tissues: No acute abnormality. Degenerative changes. Scoliosis Lower thorax: Unremarkable. Recent labs: CMP: Glucose 80 01/06/2022 BUN 52 01/06/2022 Creatinine, Whole Blood (iSTAT) 1.46 01/06/2022 Sodium 144 01/06/2022 Potassium 4.7 01/06/2022 Chloride 109 01/06/2022 CO2 23 01/06/2022 Protein, Total 6.8 01/06/2022 Albumin 4.0 01/06/2022 Calcium 9.2 01/06/2022 Alkaline Phosphatase 77 01/06/2022 Bilirubin, Total 0.4 01/06/2022 AST 21 01/06/2022 ALT 14 01/06/2022 Pain Procedures: DATE PROCEDURE IMPROVEMENT 05/15/2022 TPI Only helped for a few days 03/12/22 RFA BL L4/5, L5/S1 95% x 4 months 01/08/2022 MBB Bilat L4-5,5-S1 80% x 4 hours (positive diagnostic) 12/25/2021 MBB Bilat L4-5,5-S1 80% x 4 hours (positive diagnostic) Current Medications, Past Medical History, Past Surgical History, Family History, Social History and Review of Systems: On today's date, noted above, I have confirmed and edited as necessary, the PFSH and ROS obtained by others. Physical Exam: 01/15/23 0819 Pulse: 71 Resp: 18 SpO2: 97% Constitutional: morbidly obese HEENT: Normal Cephalic, Atraumatic, Non-icteric sclera Eyes: Conjunctiva clear. No discharge from eyes Cardiovascular: Appears well perfused Lymphatic: No visible regional lymphadenopathy Skin: No visible rashes or ecchymosis Psychiatric: Full affect, Alert, Pleasant Bilateral Shoulder: Palpation: Concordant tenderness to palpation at Supraspinatus insertion, bilateral Range of Motion: ER (45' right, 20' left), Abduction (60' right, 80' left) Special Tests: painful (positive) [place] Clemens's LUMBAR MUSCULOSKELETAL/NEURO EXAM Inspection: - Symmetric without atrophy, large scar with loss of soft tissue to LEFT LE/knee (hx of traumatic injury) Posture: Slouching posture, Scoliosis Gait: Antalgic Tandem Walk: Intact Spine Range of Motion: - Flexion: Limited with pain - Extension: Limited without pain -Rotation: Limited without pain Palpation: - Lumbar Paraspinal Tenderness: Positive bilaterally - Paraspinal Spasms: Mild - Facet Loading: negative bilaterally - Greater Trochanter: None tenderness Bilateral Strength: LEFT RIGHT Iliopsoas (L2) 5 5 Quadriceps (L3) 5 5 Anterior Tibialis (L4): 5 5 Exten Hallucis Longus (L5) 5 5 Gastrocnemius (S1): 5 5 Muscle Tone: - Normal and symmetric Neural Tension Signs: -Straight Leg Exam Negative Bilateral lower limb(s) -Contralateral Straight Leg Raise Negative Bilateral lower limb(s) Sensation: - intact to light touch in the L2-S2 Bilateral lower limb dermatomes Reflexes: LEFT RIGHT Patellar (L4) Decreased 1+ Decreased 1+ Achilles (S1) Decreased 1+ Decreased 1+ Clonus Negative Negative Hip Range of Motion: - deferred pain Sacroiliac Maneuvers: - SIJ tenderness: Negative Bilateral Althea's Signs: Deferred + CVA tenderness bilaterally Diagnoses: No diagnosis found. Impression & Plan: 82 year old female, who presents with complaint(s) of thoracic, low back and BL flank pain. Reports her low back pain has improved significantly after lumbar RFA. She continue to report bilateral flank pain. 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 She has mild bilateral lumbar paraspinal tenderness with some triggering. Trigger point injection did not help. Reports no SE with her gabapentin, finds this is very helpful. SPRINT PNS is helping tremendously, 100% relief of pain. Ting Vega would benefit from the following to decrease pain, improve function and/or work participation, and improve quality of life: Plan: Interventional Procedure(s): Glenohumeral joint injection, bilateral, under fluoroscopic guidance The risks, benefits, alternative treatment options and prognosis of the procedure were discussed and all of the patient's questions/concerns were addressed to the patient's satisfaction. The patient expressed understanding and gave verbal consent to proceed. Medications: Refill: Gabapentin 300mg TID - advised to continue for 3 months, then will consider weaning She previously inquired about increasing her Gabapentin, however due to her renal functions I advised we hold on this for now and continue her current dose Flexeril 10mg TID PRN Functional [facility]: No changes-continue current regimen Additional Studies: X-ray Bilat Shoulders Referrals: none Additional: TBD depending on her response to the above Patient is happy and agreeable with this plan. All questions were answered and patient verbalized understanding. Depending on response to the above plan, consider: Suprascapular N. Block, SPRINT PNS Follow-up: 2 months (VINNY or Physician) Attribution: In addition to reviewing the information noted above, some elements copied from my most recent clinical note(s), including the physical exam (completed in entirety today), and the impression and plan sections, have been updated where appropriate. All reflect current medical decision making from today's date. Roque Jackson MD Pain Management [facility] documented in this encounter [facility] 01-14-2023 Note HNO ID: [id number] Author: Roque Jackson MD Service: ? Author Type: Physician Type: Progress Notes Filed: 01/15/2023 8:58 AM Note Text: [facility] Name: Ting Vega : 1940 Purpose: 3-month follow-up Today's Date: 01/15/2023 Last Visit: 10/16/2022 Chief complaint: Thoracic and low back Pain Ting Vega is an established patient, returning today for continued evaluation and management of the chief complaint noted above. Interval History: Overall pain and functional disability: improved New Complaints: None She reports 100% relief of her low back and thoracic pain since the SPRINT PNS treatment. Other than a little stiffness in the morning, she has no low back pain. She has pain in both (right > left) shoulders when she works out, lifts heavy groceries, or uses her arms to support herself when ascending stairs. Pain is localized to the upper and lateral shoulders. She is exercising regularly. She has lost 76 pounds since July,. Medications Prescribed: Started or modified: none Discontinued: none Maintained at current dosages: Gabapentin 300mg TID Flexeril 10mg TID prn Tolerating Medication: yes Medications helping improve ADL's and Self-care: yes Procedures Performed: DATE PROCEDURE IMPROVEMENT 08/13/2022 SPRINT PNS Lumbar (Right) Nearly 100% (01/15/2023 ) 07/30/2022 SPRINT PNS Lumbar (Left) Nearly 100% (01/15/2023 ) Therapies Attended: none Studies Obtained: none (relevant findings reported below) Recall: From 03/2022 - She previously inquired about increasing her Gabapentin, however due to her renal functions I advised we hold on this for now and continue her current dose From 03/2022 - She is more concerned about her multiple abdominal hernia's, she feels this likely contributes to her overall RIGHT flank pain. States she has seen nephrology and no treatment recommended. She does report frequent UTI's and generalized not feeling well. States this is not pain from her back. Current Status: INTAKE PAIN ASSESSMENT 10/16/2022 01/15/2023 Are you having pain associated with your visit today? Yes, Provider notified Yes, Provider notified Pain Scales Verbal (Numeric Rating or Visual Analog Scale) Verbal (Numeric Rating or Visual Analog Scale) Pain Level 0 1 Pain Location - Back Description - Aching Duration Amount of Time - - Duration Units Months Years Frequency Intermittent Intermittent Intervention/Comfort measure Medication;Reposition;Relaxation (No Data) Comments - - Pain Assessment - - Current Anti-Coagulant Use: No Risk Assessment: SANDRA-7: SANDRA - 7 SCORES 09/19/2021 SANDRA-7 Score 7 (0-4) minimal anxiety, (5-9) mild anxiety, (10-14) moderate anxiety, (15-21) severe anxiety PHQ-9: PHQ-9 09/19/2021 Score 4 (0-4) minimal depression, (5-9) mild depression, (10-14) moderate depression, (15-19) moderately severe depression, (20-27) severe depression Compliance: PDMP website checked and validated. All prescriptions have been APPROPRIATELY filled. No suspicious activity was identified. On 01/15/2023 by MD Eliazar Mathias (current) Allergies: ALLERGIES Allergen Reactions Bactrim [Sulfametho* Hives Blisters: head to toe Ibuprofen Rash Kefzol [Cefazolin S* Hives Peanut Butter [Othe* throat swelling, convulsions Sulfa (Sulfonamide * Hives, Unknown Blisters: head to toe Data Reviewed: Reviewed personally on today's date. Relevant Imaging: X-ray right foot 07/2022: No acute process X-ray Lt. Elbow, Rt. Hip 05/2022 Left elbow: Good alignment no fracture. Some degenerative changes. No effusion. Right hip: Well-maintained. No discrete fracture identified. Bony pelvis intact. Degenerative change left hip. Degenerative changes are noted in the lower lumbar spine. There is a nancy in the visualized mid femoral shaft on right side. MRI Thoracic/Lumbar Spine 04/2022 THORACIC: Counting reference: Craniocervical and lumbosacral junctions. For the purposes of this report, L4-5 is considered the level of the iliac crest and assume there are 5 lumbar-type vertebrae. Anatomic variant: None. Localizer images: Degenerative changes in bilateral shoulders. Bilateral renal cysts. Alignment: Exaggerated thoracic kyphosis. Cord: The thoracic spinal cord is within normal limits of signal intensity and morphology. Bone marrow signal/fracture: Scattered T2 and T1 hyperintense subcentimeter intervertebral lesions, likely hemangiomas. Multilevel eccentric anterior bridging osteophytes, compatible with DISH. No evidence of pathologic marrow infiltration. No evidence of prior fracture. Thoracic soft tissues: The paraspinal soft tissues are within normal limits. Canal and foramina: Facet arthrosis and ligamentum flavum thickening causing minimal left-sided T9-T10 neuroforamina and T10-T11 minimal left-sided neural foraminal narrowing. Otherwise, the (more content not included)... [facility] 12-24-2022 Miscellaneous Notes Face sheet, consult, and last OV notes faxed to Dr. Gilmore's office in [place]. Miryam Wells APRN.RECREATION THERAPIST Patient notified of results, verbalizes understanding of instructions. Pt stated she would like to see Dr. Albrecht. Minna Blue LPN Can you please call the patient and let her know I reviewed her lab results. Kidney function has decreased significantly. I would recommend that she stop taking Lasix at this time. I know she was following with nephrology, Dr. Acosta, however if she would like to establish care with a new posting machine operator I would recommend [facility], Dr. Gilmore. Please let me know what she prefers. If she would like we can recheck kidney function in 2 to 4 weeks after stopping Lasix. Thank you. Miryam Wells APRN.RECREATION THERAPIST documented in this encounter [facility] 12-22-2022 Note HNO ID: [id number] Author: Miryam Wells APRN.CJ Service: ? Author Type: Nurse Practitioner Type: Progress Notes Filed: 12/22/2022 9:41 AM Note Text: This is a 82 year old female who presents today with: Patient presents with: Follow Up: 3 month follow up HISTORY OF PRESENT ILLNESS: Ting Vega is a 82 year old female. Patient presents with: Follow Up: 3 month follow up 3 month follow up. History of incontinence, Following with Dr. Hernandez (urology). Refers she started a new medication, Gemtesa 75 mg daily, which has been helpful. Cystoscopy normal. Has bathroom schedule to empty bladder. Chronic back pain: Following with pain management, Dr. Jackson, Had SPR device placement in june. Back pain is gone since getting the deviced placed. Follow up next week. Device removed In October. Follow up in January. Knee Pain: Using Voltaren gel as needed. Left Shoulder: Has been having ongoing pain for about 5-6 months. Pain is constant. Has been working on at home exercises. LLE: Lasix 40mg for Lasix daily, following with Nephrology, Dr. Acosta [facility]. Had decreased GFR in October,, Following up every 6 months. HTN: Taking Norvasc 5 mg and Toprol XL 50 mg daily. Denies chest pain, palpitations, or dizziness. Hypothyroid: Taking levothyroxine 125 mcg daily. Cardiology: seeing Dr. Jackson tomorrow. Has been having SOB with activity. Just had heart cath, which was normal. Down 60 lbs since July. Lost another 12 lbs since September. Has been working out 3 times weekly and watching diet. Will be having follow up with labs soon. Sleep: Taking Ambien 10 mg at bedtime. PAST MEDICAL HISTORY: PAST MEDICAL HISTORY Diagnosis Date Chronic airway obstruction, not elsewhere classified Essential hypertension, benign Insomnia 07/30/2011 Obesity, unspecified Open wound of knee, leg (except thigh), and ankle, complicated Other pulmonary embolism and infarction Phlebitis and thrombophlebitis of femoral vein (deep) (superficial) (HCC) Unspecified sleep apnea PAST SURGICAL HISTORY Procedure Laterality Date ANESTHESIA HERNIA REPAIR LOWER ABDOMEN NOS 04/2004,05/11 gortex put in on 05/11 then taken out06/08 ARTHRP KNE CONDYLEANDPLATU MEDIALANDLAT COMPARTMENTS 1990 bilateral total knee s([place]) ARTHRP KNE CONDYLEANDPLATU MEDIALANDLAT COMPARTMENTS 10/24/04 bilateral total knee revisions DELIVERY ONLY , low cervical CHOLECYSTECTOMY COLONOSCOPY FLX DX W/COLLJ SPEC WHEN PFRMD 11/17/2017 Colonoscopy DEBRIDEMENT SUBCUTANEOUS TISSUE 20 SQ CM/< 02/17/07 LEFT LEG DEBRIDEMENT SUBCUTANEOUS TISSUE 20 SQ CM/< [id number] LEFT LEG DEBRIDEMENT SUBCUTANEOUS TISSUE 20 SQ CM/< [id number] LEFT LEG DEBRIDEMENT SUBCUTANEOUS TISSUE 20 SQ CM/< [id number] LEFT LEG DEBRIDEMENT SUBCUTANEOUS TISSUE 20 SQ CM/< [id number] LEFT LEG DEBRIDEMENT SUBCUTANEOUS TISSUE 20 SQ CM/< 03/03/07 LEFT LEG ESOPHAGOGASTRODUODENOSCOPY TRANSORAL DIAGNOSTIC 11/17/2017 EGD GASTRIC BYPASS 07/08 HEMORRHOIDECTOMY INTERNAL RUBBER BAND LIGATIONS HYSTEROSCOPY BX W/WO DANDC 01/07/2018 PAST SURGICAL HISTORY OF 04/10/2016 Nancy and new knee cap put in right leg PAST SURGICAL HISTORY OF 04/25/2016 had to debri right leg wound with cellutitis infection ALLERGIES Bactrim [Sulfamethoxazole-Trimethoprim], Ibuprofen, Kefzol [Cefazolin Sodium], Peanut Butter [Other], and Sulfa (Sulfonamide Antibiotics) MEDICATIONS Current Outpatient Medications Medication Sig cyclobenzaprine (FLEXERIL) 10 mg tablet Take 1 tablet by mouth three times daily as needed for muscle spasm. zolpidem (AMBIEN) 10 mg Take 1 tablet by mouth at bedtime as needed for up to 90 days. aspirin, enteric coated (ASPIRIN, ENTERIC COATED) 81 mg EC tablet Take 81 mg by mouth once daily. levothyroxine (LEVOXYL) 125 mcg tablet Take 1 tablet by mouth once daily. Take on empty stomach. For thyroid. amLODIPine (NORVASC) 5 mg tablet Take by mouth. gabapentin (NEURONTIN) 300 mg capsule Take 1 capsule by mouth three times daily for 180 days. Take one pill 3 times per day mirabegron (MYRBETRIQ) 25 mg Tb24 Take 1 tablet by mouth once daily. omeprazole (PRILOSEC) 20 mg capsule TAKE 1 CAPSULE BY MOUTH ONCE DAILY tolterodine ER (DETROL LA) 4 mg 24 hr capsule TAKE 1 CAPSULE BY MOUTH ONCE DAILY acetaminophen (TYLENOL) 500 mg tablet Take 1,000 mg by mouth twice daily. Diaper,Brief, Adult,Disposable (DEPEND UNDERWEAR FOR WOMEN XL) Use 5/day as needed for urinary incontinence metoprolol succinate ER (TOPROL XL) 50 mg 24 hr tablet Take by mouth. furosemide (LASIX) 20 mg tablet Take 1 tablet by mouth once daily. (Patient taking differently: Take 40 mg by mouth once daily.) Yokjcakavcd-Lxqkwyzzc-Dzl C-Mn (GLUCOSAMINE CHONDROITIN MAXSTR) 500-400 mg cap Take 1 capsule by mouth three times daily. COMPOUNDED PRESCRIPTION Stair lift DAILY-LUISITO tablet TAKE 1 TABLET BY MOUTH ONCE DAILY. xxlwkqd-bslhdqlzs-gbkfhhw D3 (CALCIUM 500+D) 500 mg(1,250mg) -200 unit per tablet Otis (more content not included)... [facility] 12-22-2022 Instructions Miryam Wells APRN.CNP - 12/22/2022 9:15 AM EDT Get labs completed Stay well hydrated. Continue to take all medication as prescribed. Continue at home exercises at home for shoulder pain, any worsening symptoms contact the office. Keep up coming appointment Dr. Jackson. Elevate the legs when possible. Follow up in 3 months or sooner pending test results. documented in this encounter [facility] 12-22-2022 History of Presen t illness Narrative This is a 82 year old female who presents today with: Patient presents with: Follow Up: 3 month follow up HISTORY OF PRESENT ILLNESS: Ting Vega is a 82 year old female. Patient presents with: Follow Up: 3 month follow up 3 month follow up. History of incontinence, Following with Dr. Hernandez (urology). Refers she started a new medication, Gemtesa 75 mg daily, which has been helpful. Cystoscopy normal. Has bathroom schedule to empty bladder. Chronic back pain: Following with pain management, Dr. Jackson, Had SPR device placement in june. Back pain is gone since getting the deviced placed. Follow up next week. Device removed In October. Follow up in January. Knee Pain: Using Voltaren gel as needed. Left Shoulder: Has been having ongoing pain for about 5-6 months. Pain is constant. Has been working on at home exercises. LLE: Lasix 40mg for Lasix daily, following with Nephrology, Dr. Acosta [facility]. Had decreased GFR in October,, Following up every 6 months. HTN: Taking Norvasc 5 mg and Toprol XL 50 mg daily. Denies chest pain, palpitations, or dizziness. Hypothyroid: Taking levothyroxine 125 mcg daily. Cardiology: seeing Dr. Jackson tomorrow. Has been having SOB with activity. Just had heart cath, which was normal. Down 60 lbs since July. Lost another 12 lbs since September. Has been working out 3 times weekly and watching diet. Will be having follow up with labs soon. Sleep: Taking Ambien 10 mg at bedtime. PAST MEDICAL HISTORY: PAST MEDICAL HISTORY Diagnosis Date Chronic airway obstruction, not elsewhere classified Essential hypertension, benign Insomnia 07/30/2011 Obesity, unspecified Open wound of knee, leg (except thigh), and ankle, complicated Other pulmonary embolism and infarction Phlebitis and thrombophlebitis of femoral vein (deep) (superficial) ([facility]) Unspecified sleep apnea PAST SURGICAL HISTORY Procedure Laterality Date ANESTHESIA HERNIA REPAIR LOWER ABDOMEN NOS 04/2004,05/11 gortex put in on 05/11 then taken out06/08 ARTHRP KNE CONDYLE&PLATU MEDIAL&LAT COMPARTMENTS 1990 bilateral total knee s([place]) ARTHRP KNE CONDYLE&PLATU MEDIAL&LAT COMPARTMENTS 10/24/04 bilateral total knee revisions DELIVERY ONLY , low cervical CHOLECYSTECTOMY COLONOSCOPY FLX DX W/COLLJ SPEC WHEN PFRMD 11/17/2017 Colonoscopy DEBRIDEMENT SUBCUTANEOUS TISSUE 20 SQ CM/< 02/17/07 LEFT LEG DEBRIDEMENT SUBCUTANEOUS TISSUE 20 SQ CM/< [id number] LEFT LEG DEBRIDEMENT SUBCUTANEOUS TISSUE 20 SQ CM/< [id number] LEFT LEG DEBRIDEMENT SUBCUTANEOUS TISSUE 20 SQ CM/< [id number] LEFT LEG DEBRIDEMENT SUBCUTANEOUS TISSUE 20 SQ CM/< [id number] LEFT LEG DEBRIDEMENT SUBCUTANEOUS TISSUE 20 SQ CM/< 03/03/07 LEFT LEG ESOPHAGOGASTRODUODENOSCOPY TRANSORAL DIAGNOSTIC 11/17/2017 EGD GASTRIC BYPASS 07/08 HEMORRHOIDECTOMY INTERNAL RUBBER BAND LIGATIONS HYSTEROSCOPY BX W/WO D&C 01/07/2018 PAST SURGICAL HISTORY OF 04/10/2016 Nancy and new knee cap put in right leg PAST SURGICAL HISTORY OF 04/25/2016 had to debri right leg wound with cellutitis infection ALLERGIES Bactrim [Sulfamethoxazole-Trimethoprim], Ibuprofen, Kefzol [Cefazolin Sodium], Peanut Butter [Other], and Sulfa (Sulfonamide Antibiotics) MEDICATIONS Current Outpatient Medications Medication Sig cyclobenzaprine (FLEXERIL) 10 mg tablet Take 1 tablet by mouth three times daily as needed for muscle spasm. zolpidem (AMBIEN) 10 mg Take 1 tablet by mouth at bedtime as needed for up to 90 days. aspirin, enteric coated (ASPIRIN, ENTERIC COATED) 81 mg EC tablet Take 81 mg by mouth once daily. levothyroxine (LEVOXYL) 125 mcg tablet Take 1 tablet by mouth once daily. Take on empty stomach. For thyroid. amLODIPine (NORVASC) 5 mg tablet Take by mouth. gabapentin (NEURONTIN) 300 mg capsule Take 1 capsule by mouth three times daily for 180 days. Take one pill 3 times per day mirabegron (MYRBETRIQ) 25 mg Tb24 Take 1 tablet by mouth once daily. omeprazole (PRILOSEC) 20 mg capsule TAKE 1 CAPSULE BY MOUTH ONCE DAILY tolterodine ER (DETROL LA) 4 mg 24 hr capsule TAKE 1 CAPSULE BY MOUTH ONCE DAILY acetaminophen (TYLENOL) 500 mg tablet Take 1,000 mg by mouth twice daily. Diaper,Brief, Adult,Disposable (DEPEND UNDERWEAR FOR WOMEN XL) Use 5/day as needed for urinary incontinence metoprolol succinate ER (TOPROL XL) 50 mg 24 hr tablet Take by mouth. furosemide (LASIX) 20 mg tablet Take 1 tablet by mouth once daily. (Patient taking differently: Take 40 mg by mouth once daily.) Pkvamclxvog-Kkgyprplh-Gsn C-Mn (GLUCOSAMINE CHONDROITIN MAXSTR) 500-400 mg cap Take 1 capsule by mouth three times daily. COMPOUNDED PRESCRIPTION Stair lift DAILY-LUISITO tablet TAKE 1 TABLET BY MOUTH ONCE DAILY. wuhmvga-zevoeplpp-mmnzrgx D3 (CALCIUM 500+D) 500 mg(1,250mg) -200 unit per tablet Take 1 tablet by mouth twice daily with meals. vitamin b complex (B COMPLETE) tab Take 1 tablet by mouth once daily. hydrocortisone (ANUSOL-HC) 2.5 % rectal cream 1 application by RECTAL route twice daily. calcium acetate (PHOSLO) 667 mg capsule TAKE 1 CAPSULE BY MOUTH THREE TIMES DAILY. Magnesium 200 mg tab Take 200 mg by mouth once daily. Zinc 50 mg tab Take 1 tablet by mouth once daily. cholecalciferol (VITAMIN D3) 1,000 unit tab tablet Take 2 tablets by mouth once daily. senna-docusate (SENNA-S) 8.6-50 mg per tablet Take 1 tablet by mouth once daily. ascorbic acid(VITAMIN C 500 MG TAB) Take one(1) tablet daily. VITAMIN E 400 UNIT CAP Take one(1) tablet twice daily. pyridoxine hcl(VITAMIN B-6 100 MG TAB) Take one(1) tablet daily. CENTRUM PERFORMANCE TAB Take one(1) tablet daily. No current facility-administered medications for this visit. FAMILY HISTORY Problem Relation Age of Onset Cancer Mother ovarian Social History Tobacco Use Smoking status: Former Packs/day: 0.25 Years: 1.00 Additional pack years: 0.00 Total pack years: 0.25 Types: Cigarettes Quit date: 04/06/1953 Years since quittin.7 Smokeless tobacco: Never Vaping Use Vaping Use: Never used Substance Use Topics Alcohol use: Yes Comment: occasionally Drug use: No Comment: used drugs for 3 years REVIEW OF SYSTEMS GENERAL: No weight loss, malaise or fevers/chills HEENT: Negative for frequent or significant headaches, No changes in hearing or vision. NECK: Negative for lumps, goiter, pain and significant neck swelling RESPIRATORY: Negative for cough, hemoptysis, wheezing, dyspnea or shortness of breath CARDIOVASCULAR: Negative for chest pain, leg swelling, orthopnea, or palpitations GI: No nausea, vomiting, or diarrhea/constipation. No hematochezia/melena. No heartburn or reflux symptoms. : No history of dysuria, frequency or incontinence MUSCULOSKELETAL: Negative for joint pain or swelling. SKIN: Negative for lesions, rash, and itching ENDOCRINE: Negative for cold or heat intolerance, polyuria, polydipsia and goiter NEURO: No history of headaches, syncope, paralysis, seizures or tremors MOOD: Negative for depression, anxiety, or suicidal ideation. EXAM: BP 112/72 Pulse 61 Resp 16 Wt 104.3 kg (230 lb) SpO2 96% BMI 42.06 kg/m PHYSICAL EXAM: General Appearance: Well appearing, alert, in no acute distress, well-hydrated, well nourished. Skin: Skin color, texture, turgor normal, no suspicious rashes or lesions. Head: Normocephalic, no masses, lesions, tenderness or abnormalities. Eyes: Anicteric sclera. Extraocular movements are intact. Lungs: Lungs clear to auscultation. No wheezing, rhonchi, rales. Heart: RRR without murmur, gallop, or rubs. No ectopy. Extremities: +1 non-pitting edema noted to Bilateral LLE, mild erythema noted on bilateral shins, non-tender, no increased warmth. Musculoskeletal: No joint swelling, deformity, or tenderness. Peripheral Pulses: Normal, Capillary refill <2secs, strong peripheral pulses, Pulses palpable. Neurologic: Gait normal. Sensation grossly intact. ASSESSMENT/PLAN: 1. Female stress incontinence - ICD9: 625.6, ICD10: N39.3 (primary diagnosis) - Stable, continue to take current medication. - Keep scheduled appointments with Dr. Hernandez, urology. 2. Chronic right-sided low back pain without sciatica - ICD9: 724.2, 338.29, ICD10: M54.50, G89.29 - Stable, keep scheduled appointments with Dr. Jackson, pain management. 3. BENIGN HYPERTENSION(aka HTN) - ICD9: 401.1, ICD10: I10 - Controlled - Continue current medications - Recommend home blood pressure monitoring, to bring results to next visit - Encouraged sodium restriction, DASH or Mediterranean diet - Recommend regular aerobic exercise - Discussed need for and benefit of weight loss. BMI 42.06 kg/(m^2) 4. Hypothyroidism, acquired - ICD9: 244.9, ICD10: E03.9 - Instructed patient on importance of taking on an empty stomach either first thing in the morning or at bedtime. - TSH BLD - T4 FREE/FREE THYROX 5. Insomnia, unspecified type - ICD9: 780.52, ICD10: G47.00 - Stable, continue to take Ambien as prescribed. 6. Leg swelling - ICD9: 729.81, ICD10: M79.89 - Recommend using Lasix 20 mg daily at this time until labs are reviewed. - Continue to elevate the legs when possible. - COMP METABOLIC PANEL - FUROSEMIDE 40 MG TABLET 7. Decreased glomerular filtration rate (GFR) - ICD9: 794.4, ICD10: R94.4 - same plan as #6. 8. Chronic knee pain, unspecified laterality - ICD9: 719.46, 338.29, ICD10: M25.569, G89.29 - Stable, continue with Voltaren as needed. 9. Acute pain of left shoulder - ICD9: 719.41, ICD10: M25.512 - Continue at home exercises, any worsening symptoms recommend PT or possible evaluation with Ortho. Follow up in 3 months or sooner as needed. Discussed treatment plan and patient voices understanding. Patient's questions answered appropriately. Medications and potential side effects were discussed and patient voices understanding. Miryam Wells APRN.RECREATION THERAPIST This note was partially generated using Fastly voice recognition system. Note was reviewed for accuracy. There may be minor misspellings or grammar miscues with Dragon voice recognition. documented in this encounter [facility] 12-04-2022 Miscellaneous Notes Patient notified rx sent to pharmacy Jud Mattson MA Refill for Cyclobenzaprine approved and sent to patient's preferred pharmacy. Roque Jackson III, MD, [place] PATIENT NEEDS REFILL SHE HAS AN APPOINTMENT 01/15/23 PLEASE ADVISE documented in this encounter [facility] 10-16-2022 Miscellaneous Notes Addended by: CELENA GALLEGOS on: 10/16/2022 10:30 AM Modules accepted: Orders documented in this encounter [facility] 10-16-2022 Note HNO ID: [id number] Author: Kerrie Guthrie LPN Service: ? Author Type: LICENSED NURSE Type: Progress Notes Filed: 10/16/2022 8:17 AM Note Text: Review of Systems Constitutional: Negative for activity change, chills, fever and unexpected weight change. Gastrointestinal: Negative for bowel retention or incontinence Genitourinary: Negative for difficulty urinating. Negative for bladder retention or incontinence Musculoskeletal: Positive for arthralgias, gait problem and myalgias. Negative for back pain, joint swelling, neck pain and neck stiffness. Neurological: Negative for weakness, numbness and headaches. Psychiatric/Behavioral: Negative for dysphoric mood, sleep disturbance and suicidal ideas. The patient is not nervous/anxious. [facility] 10-16-2022 Note HNO ID: [id number] Author: Roque Jackson MD Service: ? Author Type: Physician Type: Progress Notes Filed: 10/16/2022 8:17 AM Note Text: [facility] Name: Ting Vega : 1940 Purpose: 2 month follow-up and SPRINT PNS lead removal Today's Date: 10/16/2022 Last Visit: 10/02/2022 Chief complaint: Thoracic and low back Pain Ting Vega is an established patient, returning today for continued evaluation and management of the chief complaint noted above. Interval History: Overall pain and functional disability: improved New Complaints: None She reports 100% relief of her low back and thoracic pain since the SPRINT PNS treatment. She is here for removal of right-sided lead. Pain Description (prior to treatment) Timing: constant Character: Dull Primary Location: thoracic and lumbar area Radiation: None Exacerbating factors: standing and walking Relieving factors: sitting and lying down Interferes with: physical activity and walking The patient reports no interrupted sleep per night The patient denies difficulty with bowel or bladder control, unintentional weight loss, fevers, chills, or night sweats and arm or leg weakness. Medications Prescribed: Started or modified: none Discontinued: none Maintained at current dosages: Gabapentin 300mg TID Flexeril 10mg TID prn Tolerating Medication: yes Medications helping improve ADL's and Self-care: yes Procedures Performed: DATE PROCEDURE IMPROVEMENT 08/13/2022 SPRINT PNS Lumbar (Right) Nearly 100% 07/30/2022 SPRINT PNS Lumbar (Left) Nearly 100% Status Report: Problem with device: none Current pain level: 0/10 Relief experienced during SPR treatment: 100% (has also lost 45 pounds) Complications: none Home Exercise compliance: Ting Vega continues with their home exercise program. Therapies Attended: none Studies Obtained: X-ray right foot (relevant findings reported below) Recall: From 03/2022 - She previously inquired about increasing her Gabapentin, however due to her renal functions I advised we hold on this for now and continue her current dose From 03/2022 - She is more concerned about her multiple abdominal hernia's, she feels this likely contributes to her overall RIGHT flank pain. States she has seen nephrology and no treatment recommended. She does report frequent UTI's and generalized not feeling well. States this is not pain from her back. Current Status: INTAKE PAIN ASSESSMENT 10/02/2022 10/16/2022 Are you having pain associated with your visit today? Yes, Provider notified Yes, Provider notified Pain Scales Verbal (Numeric Rating or Visual Analog Scale) Verbal (Numeric Rating or Visual Analog Scale) Pain Level 1 0 Pain Location Back-Lower - Description Aching - Duration Amount of Time - - Duration Units Years Months Frequency Intermittent Intermittent Intervention/Comfort measure - Medication;Reposition;Relaxation Comments - - Pain Assessment - - Current Anti-Coagulant Use: No Risk Assessment: SANDRA-7: SANDRA - 7 SCORES 09/19/2021 SANDRA-7 Score 7 (0-4) minimal anxiety, (5-9) mild anxiety, (10-14) moderate anxiety, (15-21) severe anxiety PHQ-9: PHQ-9 09/19/2021 Score 4 (0-4) minimal depression, (5-9) mild depression, (10-14) moderate depression, (15-19) moderately severe depression, (20-27) severe depression Compliance: PDMP website checked and validated. All prescriptions have been APPROPRIATELY filled. No suspicious activity was identified. On 10/16/2022 by MD Eliazar Mathias (current) Allergies: ALLERGIES Allergen Reactions Bactrim [Sulfametho* Hives Blisters: head to toe Ibuprofen Rash Kefzol [Cefazolin S* Hives Peanut Butter [Othe* throat swelling, convulsions Sulfa (Sulfonamide * Hives, Unknown Blisters: head to toe Data Reviewed: Reviewed personally on today's date. Relevant Imaging: X-ray right foot 07/2022: No acute process X-ray Lt. Elbow, Rt. Hip 05/2022 Left elbow: Good alignment no fracture. Some degenerative changes. No effusion. Right hip: Well-maintained. No discrete fracture identified. Bony pelvis intact. Degenerative change left hip. Degenerative changes are noted in the lower lumbar spine. There is a nancy in the visualized mid femoral shaft on right side. MRI Thoracic/Lumbar Spine 04/2022 THORACIC: Counting reference: Craniocervical and lumbosacral junctions. For the purposes of this report, L4-5 is considered the level of the iliac crest and assume there are 5 lumbar-type vertebrae. Anatomic variant: None. Localizer images: Degenerative changes in bilateral shoulders. Bilateral renal cysts. Alignment: Exaggerated thoracic kyphosis. Cord: The thoracic spinal cord is within normal limits of signal intensity and morphology. Bone marrow signal/fracture: Scattered T2 and T1 hyperintense subcentimeter intervertebral lesions, likely hemangiomas. Multile (more content not included)... [facility] 10-16-2022 History of Presen t illness Narrative Review of Systems Constitutional: Negative for activity change, chills, fever and unexpected weight change. Gastrointestinal: Negative for bowel retention or incontinence Genitourinary: Negative for difficulty urinating. Negative for bladder retention or incontinence Musculoskeletal: Positive for arthralgias, gait problem and myalgias. Negative for back pain, joint swelling, neck pain and neck stiffness. Neurological: Negative for weakness, numbness and headaches. Psychiatric/Behavioral: Negative for dysphoric mood, sleep disturbance and suicidal ideas. The patient is not nervous/anxious. Images from the original note were not included. [facility] Name: Ting Vega : 1940 Purpose: 2 month follow-up and SPRINT PNS lead removal Today's Date: 10/16/2022 Last Visit: 10/02/2022 Chief complaint: Thoracic and low back Pain Ting Vega is an established patient, returning today for continued evaluation and management of the chief complaint noted above. Interval History: Overall pain and functional disability: improved New Complaints: None She reports 100% relief of her low back and thoracic pain since the SPRINT PNS treatment. She is here for removal of right-sided lead. Pain Description (prior to treatment) Timing: constant Character: Dull Primary Location: thoracic and lumbar area Radiation: None Exacerbating factors: standing and walking Relieving factors: sitting and lying down Interferes with: physical activity and walking The patient reports no interrupted sleep per night The patient denies difficulty with bowel or bladder control, unintentional weight loss, fevers, chills, or night sweats and arm or leg weakness. Medications Prescribed: Started or modified: none Discontinued: none Maintained at current dosages: Gabapentin 300mg TID Flexeril 10mg TID prn Tolerating Medication: yes Medications helping improve ADL's and Self-care: yes Procedures Performed: DATE PROCEDURE IMPROVEMENT 08/13/2022 SPRINT PNS Lumbar (Right) Nearly 100% 07/30/2022 SPRINT PNS Lumbar (Left) Nearly 100% Status Report: Problem with device: none Current pain level: 0/10 Relief experienced during SPR treatment: 100% (has also lost 45 pounds) Complications: none Home Exercise compliance: Ting Vega continues with their home exercise program. Therapies Attended: none Studies Obtained: X-ray right foot (relevant findings reported below) Recall: From 03/2022 - She previously inquired about increasing her Gabapentin, however due to her renal functions I advised we hold on this for now and continue her current dose From 03/2022 - She is more concerned about her multiple abdominal hernia's, she feels this likely contributes to her overall RIGHT flank pain. States she has seen nephrology and no treatment recommended. She does report frequent UTI's and generalized not feeling well. States this is not pain from her back. Current Status: INTAKE PAIN ASSESSMENT 10/02/2022 10/16/2022 Are you having pain associated with your visit today? Yes, Provider notified Yes, Provider notified Pain Scales Verbal (Numeric Rating or Visual Analog Scale) Verbal (Numeric Rating or Visual Analog Scale) Pain Level 1 0 Pain Location Back-Lower - Description Aching - Duration Amount of Time - - Duration Units Years Months Frequency Intermittent Intermittent Intervention/Comfort measure - Medication;Reposition;Relaxation Comments - - Pain Assessment - - Current Anti-Coagulant Use: No Risk Assessment: SANDRA-7: SANDRA - 7 SCORES 09/19/2021 SANDRA-7 Score 7 (0-4) minimal anxiety, (5-9) mild anxiety, (10-14) moderate anxiety, (15-21) severe anxiety PHQ-9: PHQ-9 09/19/2021 Score 4 (0-4) minimal depression, (5-9) mild depression, (10-14) moderate depression, (15-19) moderately severe depression, (20-27) severe depression Compliance: PDMP website checked and validated. All prescriptions have been APPROPRIATELY filled. No suspicious activity was identified. On 10/16/2022 by MD Eliazar Mathias (current) Allergies: ALLERGIES Allergen Reactions Bactrim [Sulfametho* Hives Blisters: head to toe Ibuprofen Rash Kefzol [Cefazolin S* Hives Peanut Butter [Othe* throat swelling, convulsions Sulfa (Sulfonamide * Hives, Unknown Blisters: head to toe Data Reviewed: Reviewed personally on today's date. Relevant Imaging: X-ray right foot 07/2022: No acute process X-ray Lt. Elbow, Rt. Hip 05/2022 Left elbow: Good alignment no fracture. Some degenerative changes. No effusion. Right hip: Well-maintained. No discrete fracture identified. Bony pelvis intact. Degenerative change left hip. Degenerative changes are noted in the lower lumbar spine. There is a nancy in the visualized mid femoral shaft on right side. MRI Thoracic/Lumbar Spine 04/2022 THORACIC: Counting reference: Craniocervical and lumbosacral junctions. For the purposes of this report, L4-5 is considered the level of the iliac crest and assume there are 5 lumbar-type vertebrae. Anatomic variant: None. Localizer images: Degenerative changes in bilateral shoulders. Bilateral renal cysts. Alignment: Exaggerated thoracic kyphosis. Cord: The thoracic spinal cord is within normal limits of signal intensity and morphology. Bone marrow signal/fracture: Scattered T2 and T1 hyperintense subcentimeter intervertebral lesions, likely hemangiomas. Multilevel eccentric anterior bridging osteophytes, compatible with DISH. No evidence of pathologic marrow infiltration. No evidence of prior fracture. Thoracic soft tissues: The paraspinal soft tissues are within normal limits. Canal and foramina: Facet arthrosis and ligamentum flavum thickening causing minimal left-sided T9-T10 neuroforamina and T10-T11 minimal left-sided neural foraminal narrowing. Otherwise, the thoracic canal and foramina are patent within the constraints of the study. LUMBAR: Counting reference: Craniocervical and lumbosacral junctions. For the purposes of this report, L4-5 is considered the level of the iliac crest and assume there are 5 lumbar-type vertebrae. Anatomic variant: None. Localizer images: Bilateral renal cysts. Alignment: Mild lumbar levoscoliosis with apex at L3-L4. And minimal grade 1 L4 on L5 anterolisthesis. Bone marrow signal/fracture: No evidence of pathologic marrow infiltration. No evidence of prior fracture. Conus: The conus is within normal limits of signal intensity and morphology. Paraspinal soft tissues: Paraspinal soft tissues are within normal limits. L1-L2: Canal and foramina are patent. L2-L3: Bulging disc and facet arthrosis tenting the thecal sac posteriorly mildly narrowing the spinal canal and causing mild left neural foraminal narrowing. Right neuroforamen is patent. L3-L4: Bulging disc and facet arthrosis denting the thecal sac posteriorly and causing mild right neuroforaminal narrowing. Spinal canal is patent. L4-L5: Bulging disc, facet arthrosis and ligamentum flavum thickening causing mild to moderate spinal canal narrowing and mild to moderate right neural foramina and mild left neural foramina narrowing. L5-S1: Bulging disc, facet arthrosis causing mild to moderate left-sided neural foraminal narrowing and mild right-sided neural foraminal narrowing. Spinal canal is patent. Sacrum and iliac wings: The visualized sacrum and iliac wings are within normal limits. The presacral soft tissues are normal in appearance. Multilevel lumbar spondylosisas outlined. Spinal canal stenosis is worst at L4-L5 causing (mild to moderate). Foraminal stenosis is worst at L4-5 and L5-S1 (mild to moderate). Exaggerated thoracic kyphosis. Multilevel eccentric anterior bridging osteophytes, compatible with DISH. Spondylosis without high-grade thoracic spinal canal or foraminal narrowing. X-ray Thoracic/Lumbar Spine 09/2021 Thoracic: No acute fractures or subluxations are noted. Generalized disc space narrowing is visualized. There is significant osteophyte formation. The bones are somewhat osteopenic. There is no paraspinal mass or bony destructive process. Lumbar: There are five orh-ula-krokief lumbar vertebrae. No acute fracture or subluxations are noted. No change in alignment of the lumbar spine with lateral extension and lateral flexion. There is left-sided curvature/levoscoliosis. Disc space narrowing involving all levels. There is significant osteophyte formation, with facet arthrosis. Kissing spine seen on lateral view. X-ray Ribs 07/2021 RESULT: Frontal radiograph of the chest and dedicated views of the left ribs show no evidence of pneumothorax, hemothorax or pulmonary contusion. The visualized bony structures are intact without apparent displaced or nondisplaced rib fracture. CT Abd/Pelvis 07/2021 Bones/Soft Tissues: No acute abnormality. Degenerative changes. Scoliosis Lower thorax: Unremarkable. Recent labs: CMP: Glucose 80 01/06/2022 BUN 52 01/06/2022 Creatinine, Whole Blood (iSTAT) 1.46 01/06/2022 Sodium 144 01/06/2022 Potassium 4.7 01/06/2022 Chloride 109 01/06/2022 CO2 23 01/06/2022 Protein, Total 6.8 01/06/2022 Albumin 4.0 01/06/2022 Calcium 9.2 01/06/2022 Alkaline Phosphatase 77 01/06/2022 Bilirubin, Total 0.4 01/06/2022 AST 21 01/06/2022 ALT 14 01/06/2022 Pain Procedures: DATE PROCEDURE IMPROVEMENT 07/30/2022 SPRINT PNS Lumbar (Left) Nearly 100% 05/15/2022 TPI Only helped for a few days 03/12/22 RFA BL L4/5, L5/S1 95% x 4 months 01/08/2022 MBB Bilat L4-5,5-S1 80% x 4 hours (positive diagnostic) 12/25/2021 MBB Bilat L4-5,5-S1 80% x 4 hours (positive diagnostic) Current Medications, Past Medical History, Past Surgical History, Family History, Social History and Review of Systems: On today's date, noted above, I have confirmed and edited as necessary, the PFSH and ROS obtained by others. Physical Exam: 10/16/22 0803 Pulse: 79 Resp: 16 SpO2: 95% Constitutional: morbidly obese HEENT: Normal Cephalic, Atraumatic, Non-icteric sclera Eyes: Conjunctiva clear. No discharge from eyes Cardiovascular: Appears well perfused Lymphatic: No visible regional lymphadenopathy Skin: No visible rashes or ecchymosis Psychiatric: Full affect, Alert, Pleasant LUMBAR MUSCULOSKELETAL/NEURO EXAM Inspection: - Symmetric without atrophy, large scar with loss of soft tissue to LEFT LE/knee (hx of traumatic injury) Posture: Slouching posture, Scoliosis Gait: Antalgic Tandem Walk: Intact Spine Range of Motion: - Flexion: Limited with pain - Extension: Limited without pain -Rotation: Limited without pain Palpation: - Lumbar Paraspinal Tenderness: Positive bilaterally - Paraspinal Spasms: Mild - Facet Loading: negative bilaterally - Greater Trochanter: None tenderness Bilateral Strength: LEFT RIGHT Iliopsoas (L2) 5 5 Quadriceps (L3) 5 5 Anterior Tibialis (L4): 5 5 Exten Hallucis Longus (L5) 5 5 Gastrocnemius (S1): 5 5 Muscle Tone: - Normal and symmetric Neural Tension Signs: -Straight Leg Exam Negative Bilateral lower limb(s) -Contralateral Straight Leg Raise Negative Bilateral lower limb(s) Sensation: - intact to light touch in the L2-S2 Bilateral lower limb dermatomes Reflexes: LEFT RIGHT Patellar (L4) Decreased 1+ Decreased 1+ Achilles (S1) Decreased 1+ Decreased 1+ Clonus Negative Negative Hip Range of Motion: - deferred pain Sacroiliac Maneuvers: - SIJ tenderness: Negative Bilateral Althea's Signs: Deferred + CVA tenderness bilaterally Diagnoses: (M47.816) Lumbar spondylosis (primary encounter diagnosis) (M79.18) Myofascial pain Impression & Plan: 82 year old female, who presents with complaint(s) of thoracic, low back and BL flank pain. Reports her low back pain has improved significantly after lumbar RFA. She continue to report bilateral flank pain. 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 She has mild bilateral lumbar paraspinal tenderness with some triggering. Trigger point injection did not help. Reports no SE with her gabapentin, finds this is very helpful. SPRINT PNS is helping tremendously, 100% relief of pain. Ting Vega would benefit from the following to decrease pain, improve function and/or work participation, and improve quality of life: Plan: The Sprint(TM) SPR electrode(s) or lead(s) was removed without incident The patient will be followed by environmental marketing representative from the company Additional tests, treatments, or referrals: none Interventional Procedure(s): None The risks, benefits, alternative treatment options and prognosis of the procedure were discussed and all of the patient's questions/concerns were addressed to the patient's satisfaction. The patient expressed understanding and gave verbal consent to proceed. Medications: Refill: Gabapentin 300mg TID - advised to continue for 3 months, then will consider weaning She previously inquired about increasing her Gabapentin, however due to her renal functions I advised we hold on this for now and continue her current dose Flexeril 10mg TID PRN Functional [facility]: No changes-continue current regimen Additional Studies: None Referrals: none Additional: TBD depending on her response to the above Patient is happy and agreeable with this plan. All questions were answered and patient verbalized understanding. Depending on response to the above plan, consider: Follow-up: 3 months Attribution: In addition to reviewing the information noted above, some elements copied from my most recent clinical note(s), including the physical exam (completed in entirety today), and the impression and plan sections, have been updated where appropriate. All reflect current medical decision making from today's date. Roque Jackson MD Pain Management [facility] documented in this encounter [facility] 10-08-2022 Miscellaneous Notes The following approved medication requests have been transmitted electronically. Requested Prescriptions Signed Prescriptions Disp Refills zolpidem (AMBIEN) 10 mg 30 tablet 2 Sig: Take 1 tablet by mouth at bedtime as needed for up to 90 days. Authorizing Provider: MIRYAM WELLS APRN.CNP PDMP website checked and validated. All prescriptions have been APPROPRIATELY filled. No suspicious activity was identified. 10/08/2022 by Miryam Wells APRN.CJ Patient has been identified by name and date of : Yes Requested Prescriptions Pending Prescriptions Disp Refills zolpidem (AMBIEN) 10 mg 30 tablet 2 Sig: Take 1 tablet by mouth at bedtime as needed for up to 90 days. RX INSTRUCTIONS: Patient aware RX will be sent to pharmacy. No need to notify patient. Quynh Sexton documented in this encounter [facility] 10-02-2022 Note HNO ID: [id number] Author: Celia Crowell LPN Service: ? Author Type: LICENSED NURSE Type: Progress Notes Filed: 10/02/2022 10:12 AM Note Text: Review of Systems Constitutional: Positive for activity change. Negative for appetite change, chills, fever and unexpected weight change. Genitourinary: Negative for difficulty urinating. Musculoskeletal: Positive for arthralgias, back pain and myalgias. Negative for gait problem, joint swelling, neck pain and neck stiffness. Neurological: Negative for weakness, numbness and headaches. Psychiatric/Behavioral: Negative for dysphoric mood, sleep disturbance and suicidal ideas. The patient is not nervous/anxious. [facility] 10-02-2022 History of Presen t illness Narrative Review of Systems Constitutional: Positive for activity change. Negative for appetite change, chills, fever and unexpected weight change. Genitourinary: Negative for difficulty urinating. Musculoskeletal: Positive for arthralgias, back pain and myalgias. Negative for gait problem, joint swelling, neck pain and neck stiffness. Neurological: Negative for weakness, numbness and headaches. Psychiatric/Behavioral: Negative for dysphoric mood, sleep disturbance and suicidal ideas. The patient is not nervous/anxious. [facility] Date: 10/02/2022 Name: Ting Vega : 1940 Purpose: SPR lead(s) Removal Interval History: Ting Vega is an established patient at [facility], who presents today for removal of SPR lead(s), which had been inserted to treat/control low back pain. Status Report: SPR device(s) placed left lumbar, 07/30/2022 (Right on 08/13) Problem with device: none Current pain level: 0/10 Relief experienced during SPR treatment: 100% (has also lost 45 pounds) Complications: none Home Exercise compliance: Ting Vega continues with their home exercise program. Data Review: Current Medications: As noted above and per nursing documentation reviewed on 10/02/2022 Social History: Per nursing documentation reviewed on 10/02/2022 Review of Systems: Reviewed nursing note on 10/02/2022 and agree with pertinent positives and negatives. Allergies: ALLERGIES Allergen Reactions Bactrim [Sulfametho* Hives Blisters: head to toe Ibuprofen Rash Kefzol [Cefazolin S* Hives Peanut Butter [Othe* throat swelling, convulsions Sulfa (Sulfonamide * Hives, Unknown Blisters: head to toe Focused Physical Exam: There were no vitals filed for this visit. Constitutional: overweight Eyes: Conjunctiva clear. No discharge from the eyes Cardiovascular: Appears well-perfused Lymphatic: No visible regional lymphadenopathy Skin: Lead site is clean, dry and intact, no drainage or erythema Psychiatric: Full affect, Alert, Pleasant Diagnoses: (M47.816) Lumbar spondylosis (primary encounter diagnosis) (M54.50, G89.29) Chronic bilateral low back pain without sciatica Impression: 82 year old female being treated for the conditions noted above, who presents today for removal of SPR lead(s). After verifying the history noted above, performing a focused physical examination, and reviewing available data, the following plan was implemented: Plan: The Sprint(TM) SPR electrode(s) or lead(s) was removed without incident The patient will be followed by environmental marketing representative from the company Additional tests, treatments, or referrals: none Follow-up: For right lead removal in 2 weeks (10/16) Roque Jackson MD, DENNIS Pain Management [facility] Opened in error documented in this encounter [facility] 10-02-2022 Note HNO ID: [id number] Author: Roque Jackson MD Service: ? Author Type: Physician Type: Progress Notes Filed: 10/02/2022 10:12 AM Note Text: [facility] Date: 10/02/2022 Name: Ting Vega : 1940 Purpose: SPR lead(s) Removal Interval History: Ting Vega is an established patient at [facility], who presents today for removal of SPR lead(s), which had been inserted to treat/control low back pain. Status Report: SPR device(s) placed left lumbar, 07/30/2022 (Right on 08/13) Problem with device: none Current pain level: 0/10 Relief experienced during SPR treatment: 100% (has also lost 45 pounds) Complications: none Home Exercise compliance: Ting Vega continues with their home exercise program. Data Review: Current Medications: As noted above and per nursing documentation reviewed on 10/02/2022 Social History: Per nursing documentation reviewed on 10/02/2022 Review of Systems: Reviewed nursing note on 10/02/2022 and agree with pertinent positives and negatives. Allergies: ALLERGIES Allergen Reactions Bactrim [Sulfametho* Hives Blisters: head to toe Ibuprofen Rash Kefzol [Cefazolin S* Hives Peanut Butter [Othe* throat swelling, convulsions Sulfa (Sulfonamide * Hives, Unknown Blisters: head to toe Focused Physical Exam: There were no vitals filed for this visit. Constitutional: overweight Eyes: Conjunctiva clear. No discharge from the eyes Cardiovascular: Appears well-perfused Lymphatic: No visible regional lymphadenopathy Skin: Lead site is clean, dry and intact, no drainage or erythema Psychiatric: Full affect, Alert, Pleasant Diagnoses: (M47.816) Lumbar spondylosis (primary encounter diagnosis) (M54.50, G89.29) Chronic bilateral low back pain without sciatica Impression: 82 year old female being treated for the conditions noted above, who presents today for removal of SPR lead(s). After verifying the history noted above, performing a focused physical examination, and reviewing available data, the following plan was implemented: Plan: The Sprint(TM) SPR electrode(s) or lead(s) was removed without incident The patient will be followed by environmental marketing representative from the company Additional tests, treatments, or referrals: none Follow-up: For right lead removal in 2 weeks (10/16) Roque Jackson MD, [place] Pain Management [facility] 10-01-2022 Note HNO ID: [id number] Author: Roque Jackson MD Service: ? Author Type: Physician Type: Progress Notes Filed: 10/02/2022 10:12 AM Note Text: Opened in error [facility] 09-26-2022 Note HNO ID: [id number] Author: Miryam Wells APRN.RECREATION THERAPIST Service: ? Author Type: Nurse Practitioner Type: Progress Notes Filed: 09/26/2022 11:01 AM Note Text: This is a 82 year old female who presents today with: Patient presents with: Follow Up: 3 month HISTORY OF PRESENT ILLNESS: Ting Vega is a 82 year old female. Patient presents with: Follow Up: 3 month 3 month follow up. History of incontinence, Following with Dr. Hernandez (urology). Refers she started a new medication, Myrbetriq 25 mg daily, which has been helpful. Cystoscopy normal. Has bathroom schedule to empty bladder. Chronic back pain: Following with pain management, Dr. Jackson, Had SPR device placement in june. Back pain is gone since getting the deviced placed. Follow up next week. Device will removed. Knee Pain: Using Voltaren gel as needed. LLE: Lasix 80, 60, 40, Mon, Wed, Thursday for Lasix per Nephrology. Following up every 6 months. HTN: Taking Norvasc 5 mg and Toprol XL 50 mg daily. Denies chest pain, palpitations, or dizziness. Hypothyroid: Taking levothyroxine 125 mcg daily. Cardiology: seeing Dr. Jackson tomorrow. Has been having SOB with activity. Just had heart cath, which was normal. Down 60 lbs since July. Has been working out 3 times weekly and watching diet. Will be having follow up with labs soon. Sleep: Taking Ambien 10 mg at bedtime. PAST MEDICAL HISTORY: PAST MEDICAL HISTORY Diagnosis Date Chronic airway obstruction, not elsewhere classified Essential hypertension, benign Insomnia 07/30/2011 Obesity, unspecified Open wound of knee, leg (except thigh), and ankle, complicated Other pulmonary embolism and infarction Phlebitis and thrombophlebitis of femoral vein (deep) (superficial) ([facility]) Unspecified sleep apnea PAST SURGICAL HISTORY Procedure Laterality Date ANESTHESIA HERNIA REPAIR LOWER ABDOMEN NOS 04/2004,05/11 gortex put in on 05/11 then taken out06/08 ARTHRP KNE CONDYLEANDPLATU MEDIALANDLAT COMPARTMENTS 1990 bilateral total knee s([place]) ARTHRP KNE CONDYLEANDPLATU MEDIALANDLAT COMPARTMENTS 10/24/04 bilateral total knee revisions DELIVERY ONLY , low cervical CHOLECYSTECTOMY COLONOSCOPY FLX DX W/COLLJ SPEC WHEN PFRMD 11/17/2017 Colonoscopy DEBRIDEMENT SUBCUTANEOUS TISSUE 20 SQ CM/< 02/17/07 LEFT LEG DEBRIDEMENT SUBCUTANEOUS TISSUE 20 SQ CM/< [id number] LEFT LEG DEBRIDEMENT SUBCUTANEOUS TISSUE 20 SQ CM/< [id number] LEFT LEG DEBRIDEMENT SUBCUTANEOUS TISSUE 20 SQ CM/< [id number] LEFT LEG DEBRIDEMENT SUBCUTANEOUS TISSUE 20 SQ CM/< [id number] LEFT LEG DEBRIDEMENT SUBCUTANEOUS TISSUE 20 SQ CM/< 03/03/07 LEFT LEG ESOPHAGOGASTRODUODENOSCOPY TRANSORAL DIAGNOSTIC 11/17/2017 EGD GASTRIC BYPASS 07/08 HEMORRHOIDECTOMY INTERNAL RUBBER BAND LIGATIONS HYSTEROSCOPY BX W/WO DANDC 01/07/2018 PAST SURGICAL HISTORY OF 04/10/2016 Nancy and new knee cap put in right leg PAST SURGICAL HISTORY OF 04/25/2016 had to debri right leg wound with cellutitis infection ALLERGIES Bactrim [Sulfamethoxazole-Trimethoprim], Ibuprofen, Kefzol [Cefazolin Sodium], Peanut Butter [Other], and Sulfa (Sulfonamide Antibiotics) MEDICATIONS Current Outpatient Medications Medication Sig amLODIPine (NORVASC) 5 mg tablet Take by mouth. gabapentin (NEURONTIN) 300 mg capsule Take 1 capsule by mouth three times daily for 180 days. Take one pill 3 times per day cyclobenzaprine (FLEXERIL) 10 mg tablet Take 1 tablet by mouth three times daily as needed for muscle spasm. zolpidem (AMBIEN) 10 mg Take 1 tablet by mouth at bedtime as needed for up to 90 days. mirabegron (MYRBETRIQ) 25 mg Tb24 Take 1 tablet by mouth once daily. omeprazole (PRILOSEC) 20 mg capsule TAKE 1 CAPSULE BY MOUTH ONCE DAILY tolterodine ER (DETROL LA) 4 mg 24 hr capsule TAKE 1 CAPSULE BY MOUTH ONCE DAILY acetaminophen (TYLENOL) 500 mg tablet Take 1,000 mg by mouth twice daily. Diaper,Brief, Adult,Disposable (DEPEND UNDERWEAR FOR WOMEN XL) Use 5/day as needed for urinary incontinence metoprolol succinate ER (TOPROL XL) 50 mg 24 hr tablet Take by mouth. furosemide (LASIX) 20 mg tablet Take 1 tablet by mouth once daily. (Patient taking differently: Take 40 mg by mouth once daily.) levothyroxine (LEVOXYL) 125 mcg tablet Take 1 tablet by mouth once daily. Take on empty stomach. For thyroid. Ramzlxrtdwv-Tpfvwiumv-Qob C-Mn (GLUCOSAMINE CHONDROITIN MAXSTR) 500-400 mg cap Take 1 capsule by mouth three times daily. lisinopril-hydroCHLOROthiazide (PRINZIDE,ZESTORETIC) 10-12.5 mg per tablet Take 1 tablet by mouth once daily. COMPOUNDED PRESCRIPTION Stair lift DAILY-LUISITO tablet TAKE 1 TABLET BY MOUTH ONCE DAILY. crbvcof-zgbzibwrd-tgfogsc D3 (CALCIUM 500+D) 500 mg(1,250mg) -200 unit per tablet Take 1 tablet by mouth twice daily with meals. vitamin b complex (B COMPLETE) tab Take 1 tablet by mouth once daily. hydrocortisone (ANUSOL-HC) 2.5 % rectal cream 1 application by RECTAL route twice daily. calcium acetate ( (more content not included)... [facility] 08-13-2022 Note HNO ID: [id number] Author: Jose Roberto Jimenes Service: ? Author Type: Tapping Machine Operator Automatic Type: Progress Notes Filed: 08/13/2022 3:43 PM Note Text: Subjective HPI Review of Systems Constitutional: Negative for chills and fever. Eyes: Negative for blurred vision and double vision. Gastrointestinal: Negative for abdominal pain, nausea and vomiting. Genitourinary: Positive for frequency and urgency. Musculoskeletal: Positive for back pain, falls, joint pain and myalgias. Negative for neck pain. Neurological: Negative for dizziness, tingling, weakness and headaches. Endo/Heme/Allergies: Bruises/bleeds easily. Psychiatric/Behavioral: Negative for depression, substance abuse and suicidal ideas. The patient is not nervous/anxious. PAST MEDICAL HISTORY Diagnosis Date Chronic airway obstruction, not elsewhere classified Essential hypertension, benign Insomnia 07/30/2011 Obesity, unspecified Open wound of knee, leg (except thigh), and ankle, complicated Other pulmonary embolism and infarction Phlebitis and thrombophlebitis of femoral vein (deep) (superficial) ([facility]) Unspecified sleep apnea PAST SURGICAL HISTORY Procedure Laterality Date ANESTHESIA HERNIA REPAIR LOWER ABDOMEN NOS 04/2004,05/11 gortex put in on 05/11 then taken out06/08 ARTHRP KNE CONDYLEANDPLATU MEDIALANDLAT COMPARTMENTS 1990 bilateral total knee s([place]) ARTHRP KNE CONDYLEANDPLATU MEDIALANDLAT COMPARTMENTS 10/24/04 bilateral total knee revisions DELIVERY ONLY , low cervical CHOLECYSTECTOMY COLONOSCOPY FLX DX W/COLLJ SPEC WHEN PFRMD 11/17/2017 Colonoscopy DEBRIDEMENT SUBCUTANEOUS TISSUE 20 SQ CM/< 02/17/07 LEFT LEG DEBRIDEMENT SUBCUTANEOUS TISSUE 20 SQ CM/< [id number] LEFT LEG DEBRIDEMENT SUBCUTANEOUS TISSUE 20 SQ CM/< [id number] LEFT LEG DEBRIDEMENT SUBCUTANEOUS TISSUE 20 SQ CM/< [id number] LEFT LEG DEBRIDEMENT SUBCUTANEOUS TISSUE 20 SQ CM/< [id number] LEFT LEG DEBRIDEMENT SUBCUTANEOUS TISSUE 20 SQ CM/< 03/03/07 LEFT LEG ESOPHAGOGASTRODUODENOSCOPY TRANSORAL DIAGNOSTIC 11/17/2017 EGD GASTRIC BYPASS 07/08 HEMORRHOIDECTOMY INTERNAL RUBBER BAND LIGATIONS HYSTEROSCOPY BX W/WO DANDC 01/07/2018 PAST SURGICAL HISTORY OF 04/10/2016 Nancy and new knee cap put in right leg PAST SURGICAL HISTORY OF 04/25/2016 had to debri right leg wound with cellutitis infection FAMILY HISTORY Problem Relation Age of Onset Cancer Mother ovarian Social History Tobacco Use Smoking status: Former Packs/day: 0.25 Years: 1.00 Pack years: 0.25 Types: Cigarettes Quit date: 04/06/1953 Years since quittin.4 Smokeless tobacco: Never Vaping Use Vaping Use: Never used Substance Use Topics Alcohol use: Yes Comment: occasionally Drug use: No Comment: used drugs for 3 years Current Meds gabapentin (NEURONTIN) 300 mg capsule Take 1 capsule by mouth three times daily for 180 days. Take one pill 3 times per day cyclobenzaprine (FLEXERIL) 10 mg tablet Take 1 tablet by mouth three times daily as needed for muscle spasm. zolpidem (AMBIEN) 10 mg Take 1 tablet by mouth at bedtime as needed for up to 90 days. mirabegron (MYRBETRIQ) 25 mg Tb24 Take 1 tablet by mouth once daily. omeprazole (PRILOSEC) 20 mg capsule TAKE 1 CAPSULE BY MOUTH ONCE DAILY tolterodine ER (DETROL LA) 4 mg 24 hr capsule TAKE 1 CAPSULE BY MOUTH ONCE DAILY acetaminophen (TYLENOL) 500 mg tablet Take 1,000 mg by mouth twice daily. Diaper,Brief, Adult,Disposable (DEPEND UNDERWEAR FOR WOMEN XL) Use 5/day as needed for urinary incontinence metoprolol succinate ER (TOPROL XL) 50 mg 24 hr tablet Take by mouth. furosemide (LASIX) 20 mg tablet Take 1 tablet by mouth once daily. (Patient taking differently: Take 40 mg by mouth once daily.) levothyroxine (LEVOXYL) 125 mcg tablet Take 1 tablet by mouth once daily. Take on empty stomach. For thyroid. Azrecohqviz-Yxjwowhxp-Aty C-Mn (GLUCOSAMINE CHONDROITIN MAXSTR) 500-400 mg cap Take 1 capsule by mouth three times daily. lisinopril-hydroCHLOROthiazide (PRINZIDE,ZESTORETIC) 10-12.5 mg per tablet Take 1 tablet by mouth once daily. COMPOUNDED PRESCRIPTION Stair lift DAILY-LUISITO tablet TAKE 1 TABLET BY MOUTH ONCE DAILY. iiczrle-jbemoweeb-hdrzwox D3 (CALCIUM 500+D) 500 mg(1,250mg) -200 unit per tablet Take 1 tablet by mouth twice daily with meals. vitamin b complex (B COMPLETE) tab Take 1 tablet by mouth once daily. hydrocortisone (ANUSOL-HC) 2.5 % rectal cream 1 application by RECTAL route twice daily. calcium acetate (PHOSLO) 667 mg capsule TAKE 1 CAPSULE BY MOUTH THREE TIMES DAILY. Magnesium 200 mg tab Take 200 mg by mouth once daily. Zinc 50 mg tab Take 1 tablet by mouth once daily. cholecalciferol (VITAMIN D3) 1,000 unit tab tablet Take 2 tablets by mouth once daily. senna-docusate (SENNA-S) 8.6-50 mg per tablet Take 1 tablet by mouth once daily. ascorbic acid(VITAMIN C 500 MG TAB) Take one(1) tablet daily. VITAMIN E 400 UNIT CAP Take one(1) tablet twice d (more content not included)... [facility] 08-13-2022 Nurse Note Order has been placed in the patient's chart with the following parameters for discharge from the physician: Patient is alert and oriented Vitals: Diastolic/Systolic +/- 20mmHg Respirations: 12-18 Pulse: 60-100 SpO2 is greater than or equal to 90% Patient has no nausea or vomiting Patient has no dizziness Pain level is +/- 2 from initial evaluation Dressing, dry and intact with no evidence of bleeding Criteria has been met, patient is okay to be discharged per the physician. Physician has gone in and evaluated the patient. Dressing dry and intact. No drainage noted. The patient denies nausea, numbness, tingling, weakness, shortness of breath, dizziness, or headache. Pain level 0/10. Vital signs within normal limits. Patient denied needing walked out by clinical staff and denied needing a wheelchair. Patient given discharge instructions and sent to transportation via ambulatory method. Patient left in good condition. SPR Stimulator Implant Date: August 13, 2022 Patient Name: Ting Vega Date of : 1940 Time in:1450 Time start:1453 Time stop:1505 SPRINT endura PNS System Lot- [id number] 2023-11-05 SPRINT endura PNS System EXTERNAL PULSE GENERATOR Lot- [id number] 2023-11-05 SPRINT endura PNS System MICROLEAD 2.0 WITH ONEPASS INTRODUCER Lot- [id number] 2024-06-10 SPRINT endura PNS System CABLES SINGLE-LEAD PROCEDURE Lot- [id number] 2024-05-08 Nurse : Amada Velasco LPN Date: August 13, 2022 Time: 2:31 PM Physician: Roque Jackson MD Date: August 13, 2022 Time: 2:31 PM Amada Velasco LPN Pause completed at each level by provider to verify correct level and laterality placement Patient was wheeled on stretcher from pre op bay to procedure room and assisted onto the procedure table. Patient s procedure was performed in [facility] procedure room. Pressure was applied to patient s injection site(s) and bleeding was minimal. Patient had no complaint of shortness of breath, dizziness, headache, numbness, tingling, weakness or complications from procedure. Patient was assisted from the procedure table onto the stretcher and wheeled into a post op bay. Patient was advised a [employer] Learning Support Aide would be in for reprogramming. Patient was advised a clinician will be to obtain another set of vitals. Present in the room is: ROQUE JACKSON MD- Physician Amada Velasco - RUDDY Ferreira/ Thierno Lorenzo - SPRINT Learning Support Aide AMADA SAUL - X-Ray Tech Comments: None Tolerated procedure well: Yes Party Chief's Name: Cayla Are you on a blood thinner: no If yes, is a hold required: no Last dose of blood thinner: no INR Result today: no Do you require a Lovenox bridge:no Are you a diabetic:no Are you/or could you be : no Are you taking Xanax for the procedure: yes Are you currently on a steroid? no Are you currently on an antibiotic: Profilactin-for procedure Have you had a COVID-19 vaccine in the last 14 days Or are you scheduled to receive one? no documented in this encounter [facility] 08-13-2022 History of Presen t illness Narrative Subjective HPI Review of Systems Constitutional: Negative for chills and fever. Eyes: Negative for blurred vision and double vision. Gastrointestinal: Negative for abdominal pain, nausea and vomiting. Genitourinary: Positive for frequency and urgency. Musculoskeletal: Positive for back pain, falls, joint pain and myalgias. Negative for neck pain. Neurological: Negative for dizziness, tingling, weakness and headaches. Endo/Heme/Allergies: Bruises/bleeds easily. Psychiatric/Behavioral: Negative for depression, substance abuse and suicidal ideas. The patient is not nervous/anxious. PAST MEDICAL HISTORY Diagnosis Date Chronic airway obstruction, not elsewhere classified Essential hypertension, benign Insomnia 07/30/2011 Obesity, unspecified Open wound of knee, leg (except thigh), and ankle, complicated Other pulmonary embolism and infarction Phlebitis and thrombophlebitis of femoral vein (deep) (superficial) (HCC) Unspecified sleep apnea PAST SURGICAL HISTORY Procedure Laterality Date ANESTHESIA HERNIA REPAIR LOWER ABDOMEN NOS 04/2004,05/11 gortex put in on 05/11 then taken out06/08 ARTHRP KNE CONDYLE&PLATU MEDIAL&LAT COMPARTMENTS 1990 bilateral total knee s([place]) ARTHRP KNE CONDYLE&PLATU MEDIAL&LAT COMPARTMENTS 10/24/04 bilateral total knee revisions DELIVERY ONLY , low cervical CHOLECYSTECTOMY COLONOSCOPY FLX DX W/COLLJ SPEC WHEN PFRMD 11/17/2017 Colonoscopy DEBRIDEMENT SUBCUTANEOUS TISSUE 20 SQ CM/< 02/17/07 LEFT LEG DEBRIDEMENT SUBCUTANEOUS TISSUE 20 SQ CM/< [id number] LEFT LEG DEBRIDEMENT SUBCUTANEOUS TISSUE 20 SQ CM/< [id number] LEFT LEG DEBRIDEMENT SUBCUTANEOUS TISSUE 20 SQ CM/< [id number] LEFT LEG DEBRIDEMENT SUBCUTANEOUS TISSUE 20 SQ CM/< [id number] LEFT LEG DEBRIDEMENT SUBCUTANEOUS TISSUE 20 SQ CM/< 03/03/07 LEFT LEG ESOPHAGOGASTRODUODENOSCOPY TRANSORAL DIAGNOSTIC 11/17/2017 EGD GASTRIC BYPASS 07/08 HEMORRHOIDECTOMY INTERNAL RUBBER BAND LIGATIONS HYSTEROSCOPY BX W/WO D&C 01/07/2018 PAST SURGICAL HISTORY OF 04/10/2016 Nancy and new knee cap put in right leg PAST SURGICAL HISTORY OF 04/25/2016 had to debri right leg wound with cellutitis infection FAMILY HISTORY Problem Relation Age of Onset Cancer Mother ovarian Social History Tobacco Use Smoking status: Former Packs/day: 0.25 Years: 1.00 Pack years: 0.25 Types: Cigarettes Quit date: 04/06/1953 Years since quittin.4 Smokeless tobacco: Never Vaping Use Vaping Use: Never used Substance Use Topics Alcohol use: Yes Comment: occasionally Drug use: No Comment: used drugs for 3 years Current Meds gabapentin (NEURONTIN) 300 mg capsule Take 1 capsule by mouth three times daily for 180 days. Take one pill 3 times per day cyclobenzaprine (FLEXERIL) 10 mg tablet Take 1 tablet by mouth three times daily as needed for muscle spasm. zolpidem (AMBIEN) 10 mg Take 1 tablet by mouth at bedtime as needed for up to 90 days. mirabegron (MYRBETRIQ) 25 mg Tb24 Take 1 tablet by mouth once daily. omeprazole (PRILOSEC) 20 mg capsule TAKE 1 CAPSULE BY MOUTH ONCE DAILY tolterodine ER (DETROL LA) 4 mg 24 hr capsule TAKE 1 CAPSULE BY MOUTH ONCE DAILY acetaminophen (TYLENOL) 500 mg tablet Take 1,000 mg by mouth twice daily. Diaper,Brief, Adult,Disposable (DEPEND UNDERWEAR FOR WOMEN XL) Use 5/day as needed for urinary incontinence metoprolol succinate ER (TOPROL XL) 50 mg 24 hr tablet Take by mouth. furosemide (LASIX) 20 mg tablet Take 1 tablet by mouth once daily. (Patient taking differently: Take 40 mg by mouth once daily.) levothyroxine (LEVOXYL) 125 mcg tablet Take 1 tablet by mouth once daily. Take on empty stomach. For thyroid. Pajvlecxjpw-Tmgadrtoi-Pcl C-Mn (GLUCOSAMINE CHONDROITIN MAXSTR) 500-400 mg cap Take 1 capsule by mouth three times daily. lisinopril-hydroCHLOROthiazide (PRINZIDE,ZESTORETIC) 10-12.5 mg per tablet Take 1 tablet by mouth once daily. COMPOUNDED PRESCRIPTION Stair lift DAILY-LUISITO tablet TAKE 1 TABLET BY MOUTH ONCE DAILY. gyfkdrd-exulbaomu-bbmgtkv D3 (CALCIUM 500+D) 500 mg(1,250mg) -200 unit per tablet Take 1 tablet by mouth twice daily with meals. vitamin b complex (B COMPLETE) tab Take 1 tablet by mouth once daily. hydrocortisone (ANUSOL-HC) 2.5 % rectal cream 1 application by RECTAL route twice daily. calcium acetate (PHOSLO) 667 mg capsule TAKE 1 CAPSULE BY MOUTH THREE TIMES DAILY. Magnesium 200 mg tab Take 200 mg by mouth once daily. Zinc 50 mg tab Take 1 tablet by mouth once daily. cholecalciferol (VITAMIN D3) 1,000 unit tab tablet Take 2 tablets by mouth once daily. senna-docusate (SENNA-S) 8.6-50 mg per tablet Take 1 tablet by mouth once daily. ascorbic acid(VITAMIN C 500 MG TAB) Take one(1) tablet daily. VITAMIN E 400 UNIT CAP Take one(1) tablet twice daily. pyridoxine hcl(VITAMIN B-6 100 MG TAB) Take one(1) tablet daily. CENTRUM PERFORMANCE TAB Take one(1) tablet daily. Objective There were no vitals taken for this visit. Physical Exam [facility] Date: 08/13/2022 Patient name: Ting Vega Physician performing procedure: Roque Jackson M.D., M.B.A. Procedure: Peripheral Nerve Stimulator Implantation under fluoroscopic guidance utilizing the SPRINT device, targeting the right L4 medial branch nerve at the L5 vertebral body Improvement after today's procedure: as per nursing report Diagnosis: (M54.50, G89.29) Chronic bilateral low back pain without sciatica (primary encounter diagnosis) (M47.816) Lumbar spondylosis Comments: Stim at level 80 HPI: Ting Vega is an 82 year old FEMALE who presents today, in pain, for the procedure noted above. Review of Systems: Pertinent Positives: MSK: pain in the region being treated Neuro: no weakness or numbness in the region being treated Skin: Negative (No itching) Eyes: Negative (No blurred or double vision) Respiratory: Negative (No Cough, Pfmcsscvl-ga-yspsel, Dyspnea on exertion, wheezing) Cardiovascular: Negative (No Chest Pain, Tightness, Pressure, Palpitations) Gastrointestinal: Negative (No Abdominal pain, Nausea, Vomiting, Constipation, Diarrhea) Genitourinary: Negative (No dysuria) Hematologic: Negative (No bleeding, bruising) OB: is Denied or Not Applicable Endocrine: Negative (No hot/cold intolerance) Psychiatric: Negative (No depression, anxiety or suicidal ideation) PAST MEDICAL HISTORY Diagnosis Date Chronic airway obstruction, not elsewhere classified Essential hypertension, benign Insomnia 07/30/2011 Obesity, unspecified Open wound of knee, leg (except thigh), and ankle, complicated Other pulmonary embolism and infarction Phlebitis and thrombophlebitis of femoral vein (deep) (superficial) ([facility]) Unspecified sleep apnea PAST SURGICAL HISTORY Procedure Laterality Date ANESTHESIA HERNIA REPAIR LOWER ABDOMEN NOS 04/2004,05/11 gortex put in on 05/11 then taken out06/08 ARTHRP KNE CONDYLE&PLATU MEDIAL&LAT COMPARTMENTS 1990 bilateral total knee s([place]) ARTHRP KNE CONDYLE&PLATU MEDIAL&LAT COMPARTMENTS 10/24/04 bilateral total knee revisions DELIVERY ONLY , low cervical CHOLECYSTECTOMY COLONOSCOPY FLX DX W/COLLJ SPEC WHEN PFRMD 11/17/2017 Colonoscopy DEBRIDEMENT SUBCUTANEOUS TISSUE 20 SQ CM/< 02/17/07 LEFT LEG DEBRIDEMENT SUBCUTANEOUS TISSUE 20 SQ CM/< [id number] LEFT LEG DEBRIDEMENT SUBCUTANEOUS TISSUE 20 SQ CM/< [id number] LEFT LEG DEBRIDEMENT SUBCUTANEOUS TISSUE 20 SQ CM/< [id number] LEFT LEG DEBRIDEMENT SUBCUTANEOUS TISSUE 20 SQ CM/< [id number] LEFT LEG DEBRIDEMENT SUBCUTANEOUS TISSUE 20 SQ CM/< 03/03/07 LEFT LEG ESOPHAGOGASTRODUODENOSCOPY TRANSORAL DIAGNOSTIC 11/17/2017 EGD GASTRIC BYPASS 07/08 HEMORRHOIDECTOMY INTERNAL RUBBER BAND LIGATIONS HYSTEROSCOPY BX W/WO D&C 01/07/2018 PAST SURGICAL HISTORY OF 04/10/2016 Nancy and new knee cap put in right leg PAST SURGICAL HISTORY OF 04/25/2016 had to debri right leg wound with cellutitis infection FAMILY HISTORY Problem Relation Age of Onset Cancer Mother ovarian Social History Tobacco Use Smoking status: Former Packs/day: 0.25 Years: 1.00 Pack years: 0.25 Types: Cigarettes Quit date: 04/06/1953 Years since quittin.4 Smokeless tobacco: Never Vaping Use Vaping Use: Never used Substance Use Topics Alcohol use: Yes Comment: occasionally Drug use: No Comment: used drugs for 3 years Current Outpatient Medications on File Prior to Visit Medication Sig gabapentin (NEURONTIN) 300 mg capsule Take 1 capsule by mouth three times daily for 180 days. Take one pill 3 times per day cyclobenzaprine (FLEXERIL) 10 mg tablet Take 1 tablet by mouth three times daily as needed for muscle spasm. zolpidem (AMBIEN) 10 mg Take 1 tablet by mouth at bedtime as needed for up to 90 days. mirabegron (MYRBETRIQ) 25 mg Tb24 Take 1 tablet by mouth once daily. omeprazole (PRILOSEC) 20 mg capsule TAKE 1 CAPSULE BY MOUTH ONCE DAILY tolterodine ER (DETROL LA) 4 mg 24 hr capsule TAKE 1 CAPSULE BY MOUTH ONCE DAILY acetaminophen (TYLENOL) 500 mg tablet Take 1,000 mg by mouth twice daily. Diaper,Brief, Adult,Disposable (DEPEND UNDERWEAR FOR WOMEN XL) Use 5/day as needed for urinary incontinence metoprolol succinate ER (TOPROL XL) 50 mg 24 hr tablet Take by mouth. furosemide (LASIX) 20 mg tablet Take 1 tablet by mouth once daily. (Patient taking differently: Take 40 mg by mouth once daily.) levothyroxine (LEVOXYL) 125 mcg tablet Take 1 tablet by mouth once daily. Take on empty stomach. For thyroid. Emxwhfuvyoh-Axmdmqxmb-Yzl C-Mn (GLUCOSAMINE CHONDROITIN MAXSTR) 500-400 mg cap Take 1 capsule by mouth three times daily. lisinopril-hydroCHLOROthiazide (PRINZIDE,ZESTORETIC) 10-12.5 mg per tablet Take 1 tablet by mouth once daily. COMPOUNDED PRESCRIPTION Stair lift DAILY-LUISITO tablet TAKE 1 TABLET BY MOUTH ONCE DAILY. pnbhnuc-wbhxdqvwl-dybsqgn D3 (CALCIUM 500+D) 500 mg(1,250mg) -200 unit per tablet Take 1 tablet by mouth twice daily with meals. vitamin b complex (B COMPLETE) tab Take 1 tablet by mouth once daily. hydrocortisone (ANUSOL-HC) 2.5 % rectal cream 1 application by RECTAL route twice daily. calcium acetate (PHOSLO) 667 mg capsule TAKE 1 CAPSULE BY MOUTH THREE TIMES DAILY. Magnesium 200 mg tab Take 200 mg by mouth once daily. Zinc 50 mg tab Take 1 tablet by mouth once daily. cholecalciferol (VITAMIN D3) 1,000 unit tab tablet Take 2 tablets by mouth once daily. senna-docusate (SENNA-S) 8.6-50 mg per tablet Take 1 tablet by mouth once daily. ascorbic acid(VITAMIN C 500 MG TAB) Take one(1) tablet daily. VITAMIN E 400 UNIT CAP Take one(1) tablet twice daily. pyridoxine hcl(VITAMIN B-6 100 MG TAB) Take one(1) tablet daily. CENTRUM PERFORMANCE TAB Take one(1) tablet daily. No current facility-administered medications on file prior to visit. Objective Exam: Vitals: As per nursing documentation Constitutional: Normal Appearance, Oriented to Time, Place and Person Head: No lacerations, no external signs of trauma Eyes: Conjunctiva clear. No discharge from the eyes Cardiovascular: Appears well-perfused Pulmonary: Non-labored respirations Abdominal: Non-distended Skin: No visible rashes or ecchymosis Psychiatric: Mood appropriate for given condition Neurological: Gross movements are limited by pain, but otherwise unremarkable Data Reviewed: Nursing note and vitals reviewed. Additional imaging reviewed as appropriate Assessment and Plan: As noted above [facility] protocol documentation / Pre-Procedure Checklist: Consent: Obtained in writing prior to procedure I had a nice discussion with the patient today about their current pain and the pathology that could be causing it We discussed different treatment options, including risks, benefits and alternatives. We agreed to proceed as previously discussed, or the plan was modified in accordance with the comments noted above Unless stated otherwise in the procedure note, the risks include but are not limited to infection, allergic reaction, increased pain, lack of therapeutic benefit, steroid reaction, nerve damage, paralysis, stroke, epidural hematoma, syncope, headache, respiratory or cardiac arrest, pneumothorax, and scar formation Once the plan was agreed upon, the patient gave written consent to proceed and was transported into the procedure room Surgical/Procedure pause or Time Out : Time Out was led by the physician in the procedure room, with the patient and all staff present and participating The following information was verified during the Time Out process: Patient name, patient date of , procedure site (marked), laterality, anticoagulants and allergies The patient was brought to the procedure room and placed in the prone position. The low back was exposed and prepped and draped in a normal sterile fashion using 2% chloroprep scrub and drape. Following, fluoroscopic imaging was completed and the above-mentioned nerve was identified. The intended needle insertion site was then marked out onto the skin and the area was anesthetized with 5 ml of 2% lidocaine. Once adequate anesthesia was achieved, a 20 gauge finder needle inserted through a 17 gauge introducer was inserted through the skin and advanced in plane under image guidance until the tip of the needle was perineural to the above-mentioned nerve. Test stimulation was conducted per the [employer] environmental marketing representative successfully. The finder needle was then removed and a second needle with a pre-loaded microlead was inserted through the introducer. The lead was tested and achieve the same paresthesia pattern. Both the needle and introducer were then removed leaving the micro-lead in place. A drop of Exofin was placed over the lead entry point and the lead connecter was attached to the lead and the lead was trimmed leaving a 1 inch retention loop. A tegaderm was place over the top of the lead and connector box and the patient was then taken out to the recovery room in stable condition were vitals were monitored. There were no complications and they tolerated the procedure well. 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 The patient was instructed to monitor for signs and symptoms of infection including redness, swelling or fever. Please see the nursing note for exact times (time out, procedure start, procedure end). After careful removal of the needle, there was minimal bleeding. The injection site was covered with appropriate sterile dressing. The patient was noted to have tolerated the procedure well and was discharged after an appropriate period of post-procedure observation. The patient was instructed to contact us if there were any complications. The patient was advised to follow-up with the requesting physician within one to two weeks or as per their requested follow-up plan. Post procedure visit summary with written instructions was offered to the patient. Roque Jackson MD, MBA Pain Management [facility] documented in this encounter [facility] 08-13-2022 Note HNO ID: [id number] Author: Roque Jackson MD Service: ? Author Type: Physician Type: Progress Notes Filed: 08/13/2022 3:43 PM Note Text: [facility] Date: 08/13/2022 Patient name: Ting Vega Physician performing procedure: Roque Jackson M.D., M.B.A. Procedure: Peripheral Nerve Stimulator Implantation under fluoroscopic guidance utilizing the SPRINT device, targeting the right L4 medial branch nerve at the L5 vertebral body Improvement after today's procedure: as per nursing report Diagnosis: (M54.50, G89.29) Chronic bilateral low back pain without sciatica (primary encounter diagnosis) (M47.816) Lumbar spondylosis Comments: Stim at level 80 HPI: Ting Vega is an 82 year old FEMALE who presents today, in pain, for the procedure noted above. Review of Systems: Pertinent Positives: MSK: pain in the region being treated Neuro: no weakness or numbness in the region being treated Skin: Negative (No itching) Eyes: Negative (No blurred or double vision) Respiratory: Negative (No Cough, Lmitejldg-vx-cpfqxk, Dyspnea on exertion, wheezing) Cardiovascular: Negative (No Chest Pain, Tightness, Pressure, Palpitations) Gastrointestinal: Negative (No Abdominal pain, Nausea, Vomiting, Constipation, Diarrhea) Genitourinary: Negative (No dysuria) Hematologic: Negative (No bleeding, bruising) OB: is Denied or Not Applicable Endocrine: Negative (No hot/cold intolerance) Psychiatric: Negative (No depression, anxiety or suicidal ideation) PAST MEDICAL HISTORY Diagnosis Date Chronic airway obstruction, not elsewhere classified Essential hypertension, benign Insomnia 07/30/2011 Obesity, unspecified Open wound of knee, leg (except thigh), and ankle, complicated Other pulmonary embolism and infarction Phlebitis and thrombophlebitis of femoral vein (deep) (superficial) ([facility]) Unspecified sleep apnea PAST SURGICAL HISTORY Procedure Laterality Date ANESTHESIA HERNIA REPAIR LOWER ABDOMEN NOS 04/2004,05/11 gortex put in on 05/11 then taken out06/08 ARTHRP KNE CONDYLEANDPLATU MEDIALANDLAT COMPARTMENTS 1990 bilateral total knee s([place]) ARTHRP KNE CONDYLEANDPLATU MEDIALANDLAT COMPARTMENTS 10/24/04 bilateral total knee revisions DELIVERY ONLY , low cervical CHOLECYSTECTOMY COLONOSCOPY FLX DX W/COLLJ SPEC WHEN PFRMD 11/17/2017 Colonoscopy DEBRIDEMENT SUBCUTANEOUS TISSUE 20 SQ CM/< 02/17/07 LEFT LEG DEBRIDEMENT SUBCUTANEOUS TISSUE 20 SQ CM/< [id number] LEFT LEG DEBRIDEMENT SUBCUTANEOUS TISSUE 20 SQ CM/< [id number] LEFT LEG DEBRIDEMENT SUBCUTANEOUS TISSUE 20 SQ CM/< [id number] LEFT LEG DEBRIDEMENT SUBCUTANEOUS TISSUE 20 SQ CM/< [id number] LEFT LEG DEBRIDEMENT SUBCUTANEOUS TISSUE 20 SQ CM/< 03/03/07 LEFT LEG ESOPHAGOGASTRODUODENOSCOPY TRANSORAL DIAGNOSTIC 11/17/2017 EGD GASTRIC BYPASS 07/08 HEMORRHOIDECTOMY INTERNAL RUBBER BAND LIGATIONS HYSTEROSCOPY BX W/WO DANDC 01/07/2018 PAST SURGICAL HISTORY OF 04/10/2016 Nancy and new knee cap put in right leg PAST SURGICAL HISTORY OF 04/25/2016 had to debri right leg wound with cellutitis infection FAMILY HISTORY Problem Relation Age of Onset Cancer Mother ovarian Social History Tobacco Use Smoking status: Former Packs/day: 0.25 Years: 1.00 Pack years: 0.25 Types: Cigarettes Quit date: 04/06/1953 Years since quittin.4 Smokeless tobacco: Never Vaping Use Vaping Use: Never used Substance Use Topics Alcohol use: Yes Comment: occasionally Drug use: No Comment: used drugs for 3 years Current Outpatient Medications on File Prior to Visit Medication Sig gabapentin (NEURONTIN) 300 mg capsule Take 1 capsule by mouth three times daily for 180 days. Take one pill 3 times per day cyclobenzaprine (FLEXERIL) 10 mg tablet Take 1 tablet by mouth three times daily as needed for muscle spasm. zolpidem (AMBIEN) 10 mg Take 1 tablet by mouth at bedtime as needed for up to 90 days. mirabegron (MYRBETRIQ) 25 mg Tb24 Take 1 tablet by mouth once daily. omeprazole (PRILOSEC) 20 mg capsule TAKE 1 CAPSULE BY MOUTH ONCE DAILY tolterodine ER (DETROL LA) 4 mg 24 hr capsule TAKE 1 CAPSULE BY MOUTH ONCE DAILY acetaminophen (TYLENOL) 500 mg tablet Take 1,000 mg by mouth twice daily. Diaper,Brief, Adult,Disposable (DEPEND UNDERWEAR FOR WOMEN XL) Use 5/day as needed for urinary incontinence metoprolol succinate ER (TOPROL XL) 50 mg 24 hr tablet Take by mouth. furosemide (LASIX) 20 mg tablet Take 1 tablet by mouth once daily. (Patient taking differently: Take 40 mg by mouth once daily.) levothyroxine (LEVOXYL) 125 mcg tablet Take 1 tablet by mouth once daily. Take on empty stomach. For thyroid. Nzpofvgkxmx-Hmgtimqvs-Msf C-Mn (GLUCOSAMINE CHONDROITIN MAXSTR) 500-400 mg cap Take 1 capsule by mouth three times daily. lisinopril-hydroCHLOROthiazide (PRINZIDE,ZESTORETIC) 10-12.5 mg per tablet Take 1 tablet by m (more content not included)... [facility] 08-04-2022 Miscellaneous Notes Please let Ms. Vega know that the right foot x-ray showed no fracture. Roque Jackson III, MD, DENN[place] documented in this encounter [facility] 07-31-2022 Note HNO ID: [id number] Author: Kaleigh Meeks MA Service: ? Author Type: Tapping Machine Operator Automatic Type: Progress Notes Filed: 07/31/2022 9:08 AM Note Text: Review of Systems Constitutional: Negative for activity change, chills, fever and unexpected weight change. Gastrointestinal: Negative for bowel retention or incontinence Genitourinary: Negative for difficulty urinating. Negative for bladder retention or incontinence Musculoskeletal: Positive for arthralgias, back pain, gait problem and myalgias. Negative for joint swelling, neck pain and neck stiffness. Neurological: Negative for weakness, numbness and headaches. Psychiatric/Behavioral: Negative for dysphoric mood, sleep disturbance and suicidal ideas. The patient is not nervous/anxious. [facility] 07-30-2022 Note HNO ID: [id number] Author: Jose Roberto Jimenes Service: ? Author Type: Tapping Machine Operator Automatic Type: Progress Notes Filed: 07/30/2022 3:48 PM Note Text: Subjective HPI Review of Systems Constitutional: Negative for chills and fever. Eyes: Negative for blurred vision and double vision. Gastrointestinal: Negative for nausea and vomiting. Genitourinary: Positive for frequency and urgency. Musculoskeletal: Positive for back pain, falls, joint pain and myalgias. Negative for neck pain. Neurological: Negative for dizziness, tingling, weakness and headaches. Endo/Heme/Allergies: Bruises/bleeds easily. Psychiatric/Behavioral: Negative for depression, substance abuse and suicidal ideas. The patient is not nervous/anxious. PAST MEDICAL HISTORY Diagnosis Date Chronic airway obstruction, not elsewhere classified Essential hypertension, benign Insomnia 07/30/2011 Obesity, unspecified Open wound of knee, leg (except thigh), and ankle, complicated Other pulmonary embolism and infarction Phlebitis and thrombophlebitis of femoral vein (deep) (superficial) (HCC) Unspecified sleep apnea PAST SURGICAL HISTORY Procedure Laterality Date ANESTHESIA HERNIA REPAIR LOWER ABDOMEN NOS 04/2004,05/11 gortex put in on 05/11 then taken out06/08 ARTHRP KNE CONDYLEANDPLATU MEDIALANDLAT COMPARTMENTS 1990 bilateral total knee s([place]) ARTHRP KNE CONDYLEANDPLATU MEDIALANDLAT COMPARTMENTS 10/24/04 bilateral total knee revisions DELIVERY ONLY , low cervical CHOLECYSTECTOMY COLONOSCOPY FLX DX W/COLLJ SPEC WHEN PFRMD 11/17/2017 Colonoscopy DEBRIDEMENT SUBCUTANEOUS TISSUE 20 SQ CM/< 02/17/07 LEFT LEG DEBRIDEMENT SUBCUTANEOUS TISSUE 20 SQ CM/< [id number] LEFT LEG DEBRIDEMENT SUBCUTANEOUS TISSUE 20 SQ CM/< [id number] LEFT LEG DEBRIDEMENT SUBCUTANEOUS TISSUE 20 SQ CM/< [id number] LEFT LEG DEBRIDEMENT SUBCUTANEOUS TISSUE 20 SQ CM/< [id number] LEFT LEG DEBRIDEMENT SUBCUTANEOUS TISSUE 20 SQ CM/< 03/03/07 LEFT LEG ESOPHAGOGASTRODUODENOSCOPY TRANSORAL DIAGNOSTIC 11/17/2017 EGD GASTRIC BYPASS 07/08 HEMORRHOIDECTOMY INTERNAL RUBBER BAND LIGATIONS HYSTEROSCOPY BX W/WO DANDC 01/07/2018 PAST SURGICAL HISTORY OF 04/10/2016 Nancy and new knee cap put in right leg PAST SURGICAL HISTORY OF 04/25/2016 had to debri right leg wound with cellutitis infection FAMILY HISTORY Problem Relation Age of Onset Cancer Mother ovarian Social History Tobacco Use Smoking status: Former Packs/day: 0.25 Years: 1.00 Pack years: 0.25 Types: Cigarettes Quit date: 04/06/1953 Years since quittin.3 Smokeless tobacco: Never Vaping Use Vaping Use: Never used Substance Use Topics Alcohol use: Yes Comment: occasionally Drug use: No Comment: used drugs for 3 years Current Meds zolpidem (AMBIEN) 10 mgTake 1 tablet by mouth at bedtime as needed for up to 90 days.Disp: 30 tabletRfl: 2 mirabegron (MYRBETRIQ) 25 mg [id number] 1 tablet by mouth once daily.Disp: 30 tabletRfl: 5 omeprazole (PRILOSEC) 20 mg capsuleTAKE 1 CAPSULE BY MOUTH ONCE DAILYDisp: 90 capsuleRfl: 3 tolterodine ER (DETROL LA) 4 mg 24 hr capsuleTAKE 1 CAPSULE BY MOUTH ONCE DAILYDisp: 90 capsuleRfl: 3 gabapentin (NEURONTIN) 300 mg capsuleTake 1 capsule by mouth three times daily for 90 days. Take one pill 3 times per day Do not start before May 08, 2022.Disp: 270 capsuleRfl: 0 acetaminophen (TYLENOL) 500 mg tabletTake 1,000 mg by mouth twice daily.Disp: Rfl: Diaper,Brief, Adult,Disposable (DEPEND UNDERWEAR FOR WOMEN XL)Use 5/day as needed for urinary incontinenceDisp: 150 EachRfl: 11 metoprolol succinate ER (TOPROL XL) 50 mg 24 hr tabletTake by mouth.Disp: Rfl: furosemide (LASIX) 20 mg tabletTake 1 tablet by mouth once daily.Disp: 30 tabletRfl: 11 (Patient taking differently: Take 40 mg by mouth once daily.) levothyroxine (LEVOXYL) 125 mcg tabletTake 1 tablet by mouth once daily. Take on empty stomach. For thyroid.Disp: 90 tabletRfl: 3 Bcxlkwvpjpq-Rxeovxubt-Bzj C-Mn (GLUCOSAMINE CHONDROITIN MAXSTR) 500-400 mg capTake 1 capsule by mouth three times daily.Disp: 90 capsuleRfl: 11 lisinopril-hydroCHLOROthiazide (PRINZIDE,ZESTORETIC) 10-12.5 mg per tabletTake 1 tablet by mouth once daily.Disp: 30 tabletRfl: 11 (Patient not taking: Reported on 06/30/2022) COMPOUNDED PRESCRIPTIONStair liftDisp: 1 DeviceRfl: 0 DAILY-LUISITO tabletTAKE 1 TABLET BY MOUTH ONCE DAILY.Disp: 30 tabletRfl: 11 slaiqjx-xaukjapfl-mykhitf D3 (CALCIUM 500+D) 500 mg(1,250mg) -200 unit per tabletTake 1 tablet by mouth twice daily with meals.Disp: 180 tabletRfl: 3 vitamin b complex (B COMPLETE) tabTake 1 tablet by mouth once daily.Disp: 90 tabletRfl: 3 hydrocortisone (ANUSOL-HC) 2.5 % rectal cream1 application by RECTAL route twice daily.Disp: 1 TubeRfl: 2 calcium acetate (PHOSLO) 667 mg capsuleTAKE 1 CAPSULE BY MOUTH THREE TIMES DAILY.Disp: 90 capsuleRfl: 3 Magnesium 200 mg tabTake 200 mg by mouth once daily.Disp: 30 tabletRfl: 11 Z (more content not included)... [facility] 07-30-2022 Nurse Note Order has been placed in the patient's chart with the following parameters for discharge from the physician: Patient is alert and oriented Vitals: Diastolic/Systolic +/- 20mmHg Respirations: 12-18 Pulse: 60-100 SpO2 is greater than or equal to 90% Patient has no nausea or vomiting Patient has no dizziness Pain level is +/- 2 from initial evaluation Dressing, dry and intact with no evidence of bleeding Criteria has been met, patient is okay to be discharged per the physician. Physician has gone in and evaluated the patient. Dressing dry and intact. No drainage noted. The patient denies nausea, numbness, tingling, weakness, shortness of breath, dizziness, or headache. Pain level 0/10. Vital signs within normal limits. Patient denied needing walked out by clinical staff and denied needing a wheelchair. Patient given discharge instructions and sent to transportation via ambulatory method. Patient left in good condition. SPR Stimulator Implant Date: July 30, 2022 Patient Name: Ting Vega Date of : 1940 Time in: 1400 Time start:1403 Time stop:1415 SPRINT endura PNS System [id number] SPRINT endura PNS System EXTERNAL PULSE GENERATOR [id number] SPRINT endura PNS System MICROLEAD 2.0 [employer]PASS INTRODUCER [id number] SPRINT endura PNS System CABLES - SINGLE-LEAD PROCEDURE [id number] Nurse : Amada Velasco LPN Date: July 30, 2022 Time: 2:06 PM Physician: Roque Jackson MD Date: July 30, 2022 Time: 2:06 PM Amada Velasco LPN Pause completed at each level by provider to verify correct level and laterality placement Patient was brought into the procedure room in a wheelchair . Patient s procedure was performed in [facility] procedure room. Pressure was applied to patient s injection site(s) and bleeding was minimal. Patient had no complaint of shortness of breath, dizziness, headache, numbness, tingling, weakness or complications from procedure. Patient was assisted from the procedure table into wheelchair and wheeled back to exam room. Patient was advised a [employer] Learning Support Aide would be in for reprogramming. Patient was advised a clinician will be to obtain another set of vitals. Present in the room is: ROQUE JACKSON MD - Physician Amada Velasco - RUDDY Ferreira - SPRINT Learning Support Aide Cordell Flynn - X-Ray Tech Comments: None Tolerated procedure well: Yes Party Chief's Name: Stephanie Are you on a blood thinner: no If yes, is a hold required: no Last dose of blood thinner: no INR Result today: no Do you require a Lovenox bridge:no Are you a diabetic:no Are you/or could you be : no Are you taking Xanax for the procedure: yes Are you currently on a steroid? no Are you currently on an antibiotic: for today's procedure. Have you had a COVID-19 vaccine in the last 14 days Or are you scheduled to receive one? no documented in this encounter [facility] 07-30-2022 History of Presen t illness Narrative Subjective HPI Review of Systems Constitutional: Negative for chills and fever. Eyes: Negative for blurred vision and double vision. Gastrointestinal: Negative for nausea and vomiting. Genitourinary: Positive for frequency and urgency. Musculoskeletal: Positive for back pain, falls, joint pain and myalgias. Negative for neck pain. Neurological: Negative for dizziness, tingling, weakness and headaches. Endo/Heme/Allergies: Bruises/bleeds easily. Psychiatric/Behavioral: Negative for depression, substance abuse and suicidal ideas. The patient is not nervous/anxious. PAST MEDICAL HISTORY Diagnosis Date Chronic airway obstruction, not elsewhere classified Essential hypertension, benign Insomnia 07/30/2011 Obesity, unspecified Open wound of knee, leg (except thigh), and ankle, complicated Other pulmonary embolism and infarction Phlebitis and thrombophlebitis of femoral vein (deep) (superficial) (HCC) Unspecified sleep apnea PAST SURGICAL HISTORY Procedure Laterality Date ANESTHESIA HERNIA REPAIR LOWER ABDOMEN NOS 04/2004,05/11 gortex put in on 05/11 then taken out06/08 ARTHRP KNE CONDYLE&PLATU MEDIAL&LAT COMPARTMENTS 1990 bilateral total knee s([place]) ARTHRP KNE CONDYLE&PLATU MEDIAL&LAT COMPARTMENTS 10/24/04 bilateral total knee revisions DELIVERY ONLY , low cervical CHOLECYSTECTOMY COLONOSCOPY FLX DX W/COLLJ SPEC WHEN PFRMD 11/17/2017 Colonoscopy DEBRIDEMENT SUBCUTANEOUS TISSUE 20 SQ CM/< 02/17/07 LEFT LEG DEBRIDEMENT SUBCUTANEOUS TISSUE 20 SQ CM/< [id number] LEFT LEG DEBRIDEMENT SUBCUTANEOUS TISSUE 20 SQ CM/< [id number] LEFT LEG DEBRIDEMENT SUBCUTANEOUS TISSUE 20 SQ CM/< [id number] LEFT LEG DEBRIDEMENT SUBCUTANEOUS TISSUE 20 SQ CM/< [id number] LEFT LEG DEBRIDEMENT SUBCUTANEOUS TISSUE 20 SQ CM/< 03/03/07 LEFT LEG ESOPHAGOGASTRODUODENOSCOPY TRANSORAL DIAGNOSTIC 11/17/2017 EGD GASTRIC BYPASS 07/08 HEMORRHOIDECTOMY INTERNAL RUBBER BAND LIGATIONS HYSTEROSCOPY BX W/WO D&C 01/07/2018 PAST SURGICAL HISTORY OF 04/10/2016 Nancy and new knee cap put in right leg PAST SURGICAL HISTORY OF 04/25/2016 had to debri right leg wound with cellutitis infection FAMILY HISTORY Problem Relation Age of Onset Cancer Mother ovarian Social History Tobacco Use Smoking status: Former Packs/day: 0.25 Years: 1.00 Pack years: 0.25 Types: Cigarettes Quit date: 04/06/1953 Years since quittin.3 Smokeless tobacco: Never Vaping Use Vaping Use: Never used Substance Use Topics Alcohol use: Yes Comment: occasionally Drug use: No Comment: used drugs for 3 years Current Meds zolpidem (AMBIEN) 10 mg^Take 1 tablet by mouth at bedtime as needed for up to 90 days.^Disp: 30 tablet^Rfl: 2 mirabegron (MYRBETRIQ) 25 mg Tb24^Take 1 tablet by mouth once daily.^Disp: 30 tablet^Rfl: 5 omeprazole (PRILOSEC) 20 mg capsule^TAKE 1 CAPSULE BY MOUTH ONCE DAILY^Disp: 90 capsule^Rfl: 3 tolterodine ER (DETROL LA) 4 mg 24 hr capsule^TAKE 1 CAPSULE BY MOUTH ONCE DAILY^Disp: 90 capsule^Rfl: 3 gabapentin (NEURONTIN) 300 mg capsule^Take 1 capsule by mouth three times daily for 90 days. Take one pill 3 times per day Do not start before May 08, 2022.^Disp: 270 capsule^Rfl: 0 acetaminophen (TYLENOL) 500 mg tablet^Take 1,000 mg by mouth twice daily.^Disp: ^Rfl: Diaper,Brief, Adult,Disposable (DEPEND UNDERWEAR FOR WOMEN XL)^Use 5/day as needed for urinary incontinence^Disp: 150 Each^Rfl: 11 metoprolol succinate ER (TOPROL XL) 50 mg 24 hr tablet^Take by mouth.^Disp: ^Rfl: furosemide (LASIX) 20 mg tablet^Take 1 tablet by mouth once daily.^Disp: 30 tablet^Rfl: 11 (Patient taking differently: Take 40 mg by mouth once daily.) levothyroxine (LEVOXYL) 125 mcg tablet^Take 1 tablet by mouth once daily. Take on empty stomach. For thyroid.^Disp: 90 tablet^Rfl: 3 Fsuwwrejnle-Srppnixxz-Yka C-Mn (GLUCOSAMINE CHONDROITIN MAXSTR) 500-400 mg cap^Take 1 capsule by mouth three times daily.^Disp: 90 capsule^Rfl: 11 lisinopril-hydroCHLOROthiazide (PRINZIDE,ZESTORETIC) 10-12.5 mg per tablet^Take 1 tablet by mouth once daily.^Disp: 30 tablet^Rfl: 11 (Patient not taking: Reported on 06/30/2022) COMPOUNDED PRESCRIPTION^Stair lift^Disp: 1 Device^Rfl: 0 DAILY-LUISITO tablet^TAKE 1 TABLET BY MOUTH ONCE DAILY.^Disp: 30 tablet^Rfl: 11 etpcgsn-jkwouyjkj-rgytpdt D3 (CALCIUM 500+D) 500 mg(1,250mg) -200 unit per tablet^Take 1 tablet by mouth twice daily with meals.^Disp: 180 tablet^Rfl: 3 vitamin b complex (B COMPLETE) tab^Take 1 tablet by mouth once daily.^Disp: 90 tablet^Rfl: 3 hydrocortisone (ANUSOL-HC) 2.5 % rectal cream^1 application by RECTAL route twice daily.^Disp: 1 Tube^Rfl: 2 calcium acetate (PHOSLO) 667 mg capsule^TAKE 1 CAPSULE BY MOUTH THREE TIMES DAILY.^Disp: 90 capsule^Rfl: 3 Magnesium 200 mg tab^Take 200 mg by mouth once daily.^Disp: 30 tablet^Rfl: 11 Zinc 50 mg tab^Take 1 tablet by mouth once daily.^Disp: 30 tablet^Rfl: 11 cholecalciferol (VITAMIN D3) 1,000 unit tab tablet^Take 2 tablets by mouth once daily.^Disp: ^Rfl: 0 senna-docusate (SENNA-S) 8.6-50 mg per tablet^Take 1 tablet by mouth once daily.^Disp: ^Rfl: 0 ascorbic acid(VITAMIN C 500 MG TAB)^Take one(1) tablet daily.^Disp: ^Rfl: 0 VITAMIN E 400 UNIT CAP^Take one(1) tablet twice daily.^Disp: ^Rfl: 0 pyridoxine hcl(VITAMIN B-6 100 MG TAB)^Take one(1) tablet daily.^Disp: ^Rfl: 0 CENTRUM PERFORMANCE TAB^Take one(1) tablet daily.^Disp: ^Rfl: 0 Objective There were no vitals taken for this visit. Physical Exam [facility] Date: 07/30/2022 Patient name: Ting Vega Physician performing procedure: Roque Jackson M.D., M.B.A. Procedure: Peripheral Nerve Stimulator Implantation under fluoroscopic guidance utilizing the SPRINT device, targeting the left L4 medial branch nerve at the L5 vertebral body Improvement after today's procedure: as per nursing report Diagnosis: (M54.50, G89.29) Chronic bilateral low back pain without sciatica (primary encounter diagnosis) (M47.816) Lumbar spondylosis Comments: Motor stim noted at 60 HPI: Ting Vega is an 82 year old FEMALE who presents today, in pain, for the procedure noted above. Review of Systems: Pertinent Positives: MSK: pain in the region being treated Neuro: no weakness or numbness in the region being treated Skin: Negative (No itching) Eyes: Negative (No blurred or double vision) Respiratory: Negative (No Cough, Jrzkwoslt-ks-yhmrhj, Dyspnea on exertion, wheezing) Cardiovascular: Negative (No Chest Pain, Tightness, Pressure, Palpitations) Gastrointestinal: Negative (No Abdominal pain, Nausea, Vomiting, Constipation, Diarrhea) Genitourinary: Negative (No dysuria) Hematologic: Negative (No bleeding, bruising) OB: is Denied or Not Applicable Endocrine: Negative (No hot/cold intolerance) Psychiatric: Negative (No depression, anxiety or suicidal ideation) PAST MEDICAL HISTORY Diagnosis Date Chronic airway obstruction, not elsewhere classified Essential hypertension, benign Insomnia 07/30/2011 Obesity, unspecified Open wound of knee, leg (except thigh), and ankle, complicated Other pulmonary embolism and infarction Phlebitis and thrombophlebitis of femoral vein (deep) (superficial) (HCC) Unspecified sleep apnea PAST SURGICAL HISTORY Procedure Laterality Date ANESTHESIA HERNIA REPAIR LOWER ABDOMEN NOS 04/2004,05/11 gortex put in on 05/11 then taken out06/08 ARTHRP KNE CONDYLE&PLATU MEDIAL&LAT COMPARTMENTS 1990 bilateral total knee s([place]) ARTHRP KNE CONDYLE&PLATU MEDIAL&LAT COMPARTMENTS 10/24/04 bilateral total knee revisions DELIVERY ONLY , low cervical CHOLECYSTECTOMY COLONOSCOPY FLX DX W/COLLJ SPEC WHEN PFRMD 11/17/2017 Colonoscopy DEBRIDEMENT SUBCUTANEOUS TISSUE 20 SQ CM/< 02/17/07 LEFT LEG DEBRIDEMENT SUBCUTANEOUS TISSUE 20 SQ CM/< [id number] LEFT LEG DEBRIDEMENT SUBCUTANEOUS TISSUE 20 SQ CM/< [id number] LEFT LEG DEBRIDEMENT SUBCUTANEOUS TISSUE 20 SQ CM/< [id number] LEFT LEG DEBRIDEMENT SUBCUTANEOUS TISSUE 20 SQ CM/< [id number] LEFT LEG DEBRIDEMENT SUBCUTANEOUS TISSUE 20 SQ CM/< 03/03/07 LEFT LEG ESOPHAGOGASTRODUODENOSCOPY TRANSORAL DIAGNOSTIC 11/17/2017 EGD GASTRIC BYPASS 07/08 HEMORRHOIDECTOMY INTERNAL RUBBER BAND LIGATIONS HYSTEROSCOPY BX W/WO D&C 01/07/2018 PAST SURGICAL HISTORY OF 04/10/2016 Nancy and new knee cap put in right leg PAST SURGICAL HISTORY OF 04/25/2016 had to debri right leg wound with cellutitis infection FAMILY HISTORY Problem Relation Age of Onset Cancer Mother ovarian Social History Tobacco Use Smoking status: Former Packs/day: 0.25 Years: 1.00 Pack years: 0.25 Types: Cigarettes Quit date: 04/06/1953 Years since quittin.3 Smokeless tobacco: Never Vaping Use Vaping Use: Never used Substance Use Topics Alcohol use: Yes Comment: occasionally Drug use: No Comment: used drugs for 3 years Current Outpatient Medications on File Prior to Visit Medication Sig zolpidem (AMBIEN) 10 mg Take 1 tablet by mouth at bedtime as needed for up to 90 days. mirabegron (MYRBETRIQ) 25 mg Tb24 Take 1 tablet by mouth once daily. omeprazole (PRILOSEC) 20 mg capsule TAKE 1 CAPSULE BY MOUTH ONCE DAILY tolterodine ER (DETROL LA) 4 mg 24 hr capsule TAKE 1 CAPSULE BY MOUTH ONCE DAILY gabapentin (NEURONTIN) 300 mg capsule Take 1 capsule by mouth three times daily for 90 days. Take one pill 3 times per day Do not start before May 08, 2022. acetaminophen (TYLENOL) 500 mg tablet Take 1,000 mg by mouth twice daily. Diaper,Brief, Adult,Disposable (DEPEND UNDERWEAR FOR WOMEN XL) Use 5/day as needed for urinary incontinence metoprolol succinate ER (TOPROL XL) 50 mg 24 hr tablet Take by mouth. furosemide (LASIX) 20 mg tablet Take 1 tablet by mouth once daily. (Patient taking differently: Take 40 mg by mouth once daily.) levothyroxine (LEVOXYL) 125 mcg tablet Take 1 tablet by mouth once daily. Take on empty stomach. For thyroid. Lxazkdkkdrp-Mogfgjkte-Kfv C-Mn (GLUCOSAMINE CHONDROITIN MAXSTR) 500-400 mg cap Take 1 capsule by mouth three times daily. lisinopril-hydroCHLOROthiazide (PRINZIDE,ZESTORETIC) 10-12.5 mg per tablet Take 1 tablet by mouth once daily. (Patient not taking: Reported on 06/30/2022) COMPOUNDED PRESCRIPTION Stair lift DAILY-LUISITO tablet TAKE 1 TABLET BY MOUTH ONCE DAILY. nlhxxxd-bdsitfffd-womqbha D3 (CALCIUM 500+D) 500 mg(1,250mg) -200 unit per tablet Take 1 tablet by mouth twice daily with meals. vitamin b complex (B COMPLETE) tab Take 1 tablet by mouth once daily. hydrocortisone (ANUSOL-HC) 2.5 % rectal cream 1 application by RECTAL route twice daily. calcium acetate (PHOSLO) 667 mg capsule TAKE 1 CAPSULE BY MOUTH THREE TIMES DAILY. Magnesium 200 mg tab Take 200 mg by mouth once daily. Zinc 50 mg tab Take 1 tablet by mouth once daily. cholecalciferol (VITAMIN D3) 1,000 unit tab tablet Take 2 tablets by mouth once daily. senna-docusate (SENNA-S) 8.6-50 mg per tablet Take 1 tablet by mouth once daily. ascorbic acid(VITAMIN C 500 MG TAB) Take one(1) tablet daily. VITAMIN E 400 UNIT CAP Take one(1) tablet twice daily. pyridoxine hcl(VITAMIN B-6 100 MG TAB) Take one(1) tablet daily. CENTRUM PERFORMANCE TAB Take one(1) tablet daily. No current facility-administered medications on file prior to visit. Objective Exam: Vitals: As per nursing documentation Constitutional: Normal Appearance, Oriented to Time, Place and Person Head: No lacerations, no external signs of trauma Eyes: Conjunctiva clear. No discharge from the eyes Cardiovascular: Appears well-perfused Pulmonary: Non-labored respirations Abdominal: Non-distended Skin: No visible rashes or ecchymosis Psychiatric: Mood appropriate for given condition Neurological: Gross movements are limited by pain, but otherwise unremarkable Data Reviewed: Nursing note and vitals reviewed. Additional imaging reviewed as appropriate Assessment and Plan: As noted above [facility] protocol documentation / Pre-Procedure Checklist: Consent: Obtained in writing prior to procedure I had a nice discussion with the patient today about their current pain and the pathology that could be causing it We discussed different treatment options, including risks, benefits and alternatives. We agreed to proceed as previously discussed, or the plan was modified in accordance with the comments noted above Unless stated otherwise in the procedure note, the risks include but are not limited to infection, allergic reaction, increased pain, lack of therapeutic benefit, steroid reaction, nerve damage, paralysis, stroke, epidural hematoma, syncope, headache, respiratory or cardiac arrest, pneumothorax, and scar formation Once the plan was agreed upon, the patient gave written consent to proceed and was transported into the procedure room Surgical/Procedure pause or Time Out : Time Out was led by the physician in the procedure room, with the patient and all staff present and participating The following information was verified during the Time Out process: Patient name, patient date of , procedure site (marked), laterality, anticoagulants and allergies The patient was brought to the procedure room and placed in the prone position. The low back was exposed and prepped and draped in a normal sterile fashion using 2% chloroprep scrub and drape. Following, fluoroscopic imaging was completed and the above-mentioned nerve was identified. The intended needle insertion site was then marked out onto the skin and the area was anesthetized with 5 ml of 2% lidocaine. Once adequate anesthesia was achieved, a 20 gauge finder needle inserted through a 17 gauge introducer was inserted through the skin and advanced in plane under image guidance until the tip of the needle was perineural to the above-mentioned nerve. Test stimulation was conducted per the SPR environmental marketing representative successfully. The finder needle was then removed and a second needle with a pre-loaded microlead was inserted through the introducer. The lead was tested and achieve the same paresthesia pattern. Both the needle and introducer were then removed leaving the micro-lead in place. A drop of Exofin was placed over the lead entry point and the lead connecter was attached to the lead and the lead was trimmed leaving a 1 inch retention loop. A tegaderm was place over the top of the lead and connector box and the patient was then taken out to the recovery room in stable condition were vitals were monitored. There were no complications and they tolerated the procedure well. 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 The patient was instructed to monitor for signs and symptoms of infection including redness, swelling or fever. Please see the nursing note for exact times (time out, procedure start, procedure end). After careful removal of the needle, there was minimal bleeding. The injection site was covered with appropriate sterile dressing. The patient was noted to have tolerated the procedure well and was discharged after an appropriate period of post-procedure observation. The patient was instructed to contact us if there were any complications. The patient was advised to follow-up with the requesting physician within one to two weeks or as per their requested follow-up plan. Post procedure visit summary with written instructions was offered to the patient. Roque Jackson MD, MBA Pain Management [facility] documented in this encounter [facility] 07-30-2022 Note HNO ID: [id number] Author: Roque Jackson MD Service: ? Author Type: Physician Type: Progress Notes Filed: 07/30/2022 3:48 PM Note Text: [facility] Date: 07/30/2022 Patient name: Ting Vega Physician performing procedure: Roque Jackson M.D., M.B.A. Procedure: Peripheral Nerve Stimulator Implantation under fluoroscopic guidance utilizing the SPRINT device, targeting the left L4 medial branch nerve at the L5 vertebral body Improvement after today's procedure: as per nursing report Diagnosis: (M54.50, G89.29) Chronic bilateral low back pain without sciatica (primary encounter diagnosis) (M47.816) Lumbar spondylosis Comments: Motor stim noted at 60 HPI: Ting Vega is an 82 year old FEMALE who presents today, in pain, for the procedure noted above. Review of Systems: Pertinent Positives: MSK: pain in the region being treated Neuro: no weakness or numbness in the region being treated Skin: Negative (No itching) Eyes: Negative (No blurred or double vision) Respiratory: Negative (No Cough, Ewkafxpon-uw-fjavib, Dyspnea on exertion, wheezing) Cardiovascular: Negative (No Chest Pain, Tightness, Pressure, Palpitations) Gastrointestinal: Negative (No Abdominal pain, Nausea, Vomiting, Constipation, Diarrhea) Genitourinary: Negative (No dysuria) Hematologic: Negative (No bleeding, bruising) OB: is Denied or Not Applicable Endocrine: Negative (No hot/cold intolerance) Psychiatric: Negative (No depression, anxiety or suicidal ideation) PAST MEDICAL HISTORY Diagnosis Date Chronic airway obstruction, not elsewhere classified Essential hypertension, benign Insomnia 07/30/2011 Obesity, unspecified Open wound of knee, leg (except thigh), and ankle, complicated Other pulmonary embolism and infarction Phlebitis and thrombophlebitis of femoral vein (deep) (superficial) ([facility]) Unspecified sleep apnea PAST SURGICAL HISTORY Procedure Laterality Date ANESTHESIA HERNIA REPAIR LOWER ABDOMEN NOS 04/2004,05/11 gortex put in on 05/11 then taken out06/08 ARTHRP KNE CONDYLEANDPLATU MEDIALANDLAT COMPARTMENTS 1990 bilateral total knee s([place]) ARTHRP KNE CONDYLEANDPLATU MEDIALANDLAT COMPARTMENTS 10/24/04 bilateral total knee revisions DELIVERY ONLY , low cervical CHOLECYSTECTOMY COLONOSCOPY FLX DX W/COLLJ SPEC WHEN PFRMD 11/17/2017 Colonoscopy DEBRIDEMENT SUBCUTANEOUS TISSUE 20 SQ CM/< 02/17/07 LEFT LEG DEBRIDEMENT SUBCUTANEOUS TISSUE 20 SQ CM/< [id number] LEFT LEG DEBRIDEMENT SUBCUTANEOUS TISSUE 20 SQ CM/< [id number] LEFT LEG DEBRIDEMENT SUBCUTANEOUS TISSUE 20 SQ CM/< [id number] LEFT LEG DEBRIDEMENT SUBCUTANEOUS TISSUE 20 SQ CM/< [id number] LEFT LEG DEBRIDEMENT SUBCUTANEOUS TISSUE 20 SQ CM/< 03/03/07 LEFT LEG ESOPHAGOGASTRODUODENOSCOPY TRANSORAL DIAGNOSTIC 11/17/2017 EGD GASTRIC BYPASS 07/08 HEMORRHOIDECTOMY INTERNAL RUBBER BAND LIGATIONS HYSTEROSCOPY BX W/WO [place] 01/07/2018 PAST SURGICAL HISTORY OF 04/10/2016 Nancy and new knee cap put in right leg PAST SURGICAL HISTORY OF 04/25/2016 had to debri right leg wound with cellutitis infection FAMILY HISTORY Problem Relation Age of Onset Cancer Mother ovarian Social History Tobacco Use Smoking status: Former Packs/day: 0.25 Years: 1.00 Pack years: 0.25 Types: Cigarettes Quit date: 04/06/1953 Years since quittin.3 Smokeless tobacco: Never Vaping Use Vaping Use: Never used Substance Use Topics Alcohol use: Yes Comment: occasionally Drug use: No Comment: used drugs for 3 years Current Outpatient Medications on File Prior to Visit Medication Sig zolpidem (AMBIEN) 10 mg Take 1 tablet by mouth at bedtime as needed for up to 90 days. mirabegron (MYRBETRIQ) 25 mg Tb24 Take 1 tablet by mouth once daily. omeprazole (PRILOSEC) 20 mg capsule TAKE 1 CAPSULE BY MOUTH ONCE DAILY tolterodine ER (DETROL LA) 4 mg 24 hr capsule TAKE 1 CAPSULE BY MOUTH ONCE DAILY gabapentin (NEURONTIN) 300 mg capsule Take 1 capsule by mouth three times daily for 90 days. Take one pill 3 times per day Do not start before May 08, 2022. acetaminophen (TYLENOL) 500 mg tablet Take 1,000 mg by mouth twice daily. Diaper,Brief, Adult,Disposable (DEPEND UNDERWEAR FOR WOMEN XL) Use 5/day as needed for urinary incontinence metoprolol succinate ER (TOPROL XL) 50 mg 24 hr tablet Take by mouth. furosemide (LASIX) 20 mg tablet Take 1 tablet by mouth once daily. (Patient taking differently: Take 40 mg by mouth once daily.) levothyroxine (LEVOXYL) 125 mcg tablet Take 1 tablet by mouth once daily. Take on empty stomach. For thyroid. Xvctjeqhyqh-Uxwsewioe-Hph C-Mn (GLUCOSAMINE CHONDROITIN MAXSTR) 500-400 mg cap Take 1 capsule by mouth three times daily. lisinopril-hydroCHLOROthiazide (PRINZIDE,ZESTORETIC) 10-12.5 mg per tablet Take 1 tablet by mouth once daily. (Patient not taking: Reported on 06/30/2022) COMP (more content not included)... [facility] 07-21-2022 Note HNO ID: [id number] Author: Roque Jackson MD Service: ? Author Type: Physician Type: Progress Notes Filed: 07/31/2022 9:14 AM Note Text: [facility] Name: Ting Vega : 1940 Purpose: 2 month follow-up Today's Date: 07/31/2022 Last Visit: 04/03/2022 (TIME ANALYSIS CLERK.Eva CORONA) Chief complaint: Thoracic and low back Pain Ting Vega is an established patient, returning today for continued evaluation and management of the chief complaint noted above. Interval History: Overall pain and functional disability: improved New Complaints: New pain right foot for 3 days, reports stepped funny , now with constant pain over base of lateral right foot, mid-arch, worse with weight-bearing Pain Description: Timing: constant Character: Dull Primary Location: thoracic and lumbar area Radiation: None Exacerbating factors: standing and walking Relieving factors: sitting and lying down Interferes with: physical activity and walking The patient reports no interrupted sleep per night The patient denies difficulty with bowel or bladder control, unintentional weight loss, fevers, chills, or night sweats and arm or leg weakness. Medications Prescribed: Started or modified: none Discontinued: none Maintained at current dosages: Gabapentin 300mg TID Flexeril 10mg TID prn Tolerating Medication: yes Medications helping improve ADL's and Self-care: yes Procedures Performed: DATE PROCEDURE IMPROVEMENT 07/30/2022 SPRINT PNS Lumbar (Left) Nearly 100% 05/15/2022 TPI Only helped for a few days Therapies Attended: none Studies Obtained: MRI, X-ray (relevant findings reported below) Recall: From 03/2022 - She previously inquired about increasing her Gabapentin, however due to her renal functions I advised we hold on this for now and continue her current dose From 03/2022 - She is more concerned about her multiple abdominal hernia's, she feels this likely contributes to her overall RIGHT flank pain. States she has seen nephrology and no treatment recommended. She does report frequent UTI's and generalized not feeling well. States this is not pain from her back. Current Status: INTAKE PAIN ASSESSMENT 07/30/2022 07/31/2022 Are you having pain associated with your visit today? Yes, Provider notified Yes, Provider notified Pain Scales Verbal (Numeric Rating or Visual Analog Scale) Verbal (Numeric Rating or Visual Analog Scale) Pain Level 8 0 Pain Location Back-Lower Back-Lower Description Dull;Aching Sore Duration Amount of Time 7 - Duration Units Months Years Frequency Intermittent Continuous Intervention/Comfort measure Reposition;Relaxation;Medication ;Distractions;Massage;Positionin g Reposition;Relaxation;Positionin g Comments - - Pain Assessment - - Current Anti-Coagulant Use: No Risk Assessment: SANDRA-7: SANDRA - 7 SCORES 09/19/2021 SANDRA-7 Score 7 (0-4) minimal anxiety, (5-9) mild anxiety, (10-14) moderate anxiety, (15-21) severe anxiety PHQ-9: PHQ-9 09/19/2021 Score 4 (0-4) minimal depression, (5-9) mild depression, (10-14) moderate depression, (15-19) moderately severe depression, (20-27) severe depression Compliance: PDMP website checked and validated. All prescriptions have been APPROPRIATELY filled. No suspicious activity was identified. 07/31/2022 Marcelinoien (current) Allergies: ALLERGIES Allergen Reactions Aspirin Intolerance Bactrim [Sulfametho* Hives Blisters: head to toe Ibuprofen Rash Kefzol [Cefazolin S* Hives Peanut Butter [Othe* throat swelling, convulsions Sulfa (Sulfonamide * Hives, Unknown Blisters: head to toe Data Reviewed: Reviewed personally on today's date. Relevant Imaging: X-ray Lt. Elbow, Rt. Hip 05/2022 Left elbow: Good alignment no fracture. Some degenerative changes. No effusion. Right hip: Well-maintained. No discrete fracture identified. Bony pelvis intact. Degenerative change left hip. Degenerative changes are noted in the lower lumbar spine. There is a nancy in the visualized mid femoral shaft on right side. MRI Thoracic/Lumbar Spine 04/2022 THORACIC: Counting reference: Craniocervical and lumbosacral junctions. For the purposes of this report, L4-5 is considered the level of the iliac crest and assume there are 5 lumbar-type vertebrae. Anatomic variant: None. Localizer images: Degenerative changes in bilateral shoulders. Bilateral renal cysts. Alignment: Exaggerated thoracic kyphosis. Cord: The thoracic spinal cord is within normal limits of signal intensity and morphology. Bone marrow signal/fracture: Scattered T2 and T1 hyperintense subcentimeter intervertebral lesions, likely hemangiomas. Multilevel eccentric anterior bridging osteophytes, compatible with DISH. No evidence of pathologic marrow infiltration. No evidence of prior fracture. Thoracic soft tissues: The paraspinal soft tissues are within normal limits. Canal an (more content not included)... [facility] 07-14-2022 Miscellaneous Notes Approved. PDMP website checked and validated. All prescriptions have been APPROPRIATELY filled. No suspicious activity was identified. 07/14/2022 by Mulugeta Jennings APRN.CNP The following approved medication requests have been transmitted electronically. Requested Prescriptions Signed Prescriptions Disp Refills zolpidem (AMBIEN) 10 mg 30 tablet 2 Sig: Take 1 tablet by mouth at bedtime as needed for up to 90 days. Authorizing Provider: MULUGETA JENNINGS APRN.RECREATION THERAPIST Patient has been identified by name and date of : Yes Requested Prescriptions Pending Prescriptions Disp Refills zolpidem (AMBIEN) 10 mg 30 tablet 2 Sig: Take 1 tablet by mouth at bedtime as needed for up to 90 days. ENDY-06/26/22 Labs-06/26/22 NOV-09/26/22 med filled 04/17/22 RX INSTRUCTIONS: Patient is out of medication, please send today. Patient aware RX will be sent to pharmacy. No need to notify patient. Patricia Mcqueen Pss documented in this encounter [facility] 07-02-2022 Nurse Note Party Chief's Name: Richard Are you on a blood thinner: N If yes, is a hold required: N Last dose of blood thinner: N INR Result today: N Do you require a Lovenox bridge:N Are you a diabetic:N Are you/or could you be : N Are you taking Xanax for the procedure: YES Are you currently on a steroid? N Are you currently on an antibiotic: Y Have you had a COVID-19 vaccine in the last 14 days Or are you scheduled to receive one? N documented in this encounter [facility] 07-02-2022 Note HNO ID: [id number] Author: Roque Jackson MD Service: ? Author Type: Physician Type: Progress Notes Filed: 07/03/2022 1:06 PM Note Text: Procedure cancelled, patient on antibiotic for UTI. Will reschedule. Roque Jackson III, MD, MBA [facility] 07-02-2022 History of Presen t illness Narrative Procedure cancelled, patient on antibiotic for UTI. Will reschedule. Roque Jackson III, MD, MBA documented in this encounter [facility] 07-01-2022 Miscellaneous Notes Pt notified of results and provider message. Esme Chi LPN Unable to reach patient. Left VM to return call to office. Please read below and advise. Chaya Banuelos MA Please let the patient know that her urine culture did grow e.coli bacteria. The macrobid that Miryam prescribed will treat the bacteria appropriately. Mulugeta Jennings APRN.CJ documented in this encounter [facility] 06-30-2022 Note HNO ID: [id number] Author: Jud Gomes APRN.CJ Service: ? Author Type: Nurse Practitioner Type: Progress Notes Filed: 06/30/2022 12:50 PM Note Text: Female Pelvic Medicine AND Reconstructive Surgery Consult CHIEF COMPLAINT: Ting Vega is a 82 year old female who presents for consultation requested by Miryam Wells APRN.CNP for an opinion regarding Female stress incontinence. HISTORY OF PRESENT ILLNESS: Patient presents today with bend up who lives near her. Is here today for mixed urinary incontinence. States she is leaking large amounts of urine both with coughing/laughing/sneezing/stand ing/walking and with urgency. States once leakage starts, she is unable to stop the leakage. She wears a depends. She has tried Detrol LA 4mg with no improvement in symptoms. She has mobility issues which makes getting to the restroom in time difficult. She also takes daily diuretics d/t fluid retention. She is on Macrobid right now for +E. Coli on 06/26/22 UCx. Had c.diff 3 weeks ago, thinks it may have returned, is leaving sample today for testing. GFR from labs on 06/11/2022 46 mL/min, CrCl calculated to be 79 mL/min. Follows with nephrology. States Dr. Maya inserted IUD 5 years ago, states she is unable to have a hysterectomy so had Mirena placed, was having abnormal bleeding. Denies recent abnormal bleeding. Denies concern for pelvic organ prolapse. Urinary Incontinence: yes, mixed Voiding Dysfunction: no Urinary Frequency: yes, Voids every 30 minutes Voids 0 times a night, wears double depends, will leak outside of this about 2x/week. States she wakes up saturated in urine. 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 She has no history of an abnormal mammogram LMP: No LMP recorded. Patient is postmenopausal.; Menopause yes: Menstrual history: Menarche: 12; Deliveries: C/Sec History of third or fourth degree laceration: No Weight of largest baby: 7 or 8lbs Sexual function Sexually active: Not sexually active PFDI-20 Do you: Usually experience pressure in the lower abdomen? Yes, somewhat bothersome (2) Usually experience heaviness or dullness in the pelvic area? No (0) Usually have a bulge or something falling out that you can see or feel in your vaginal area? No (0) Ever have to push on the vagina or around the rectum to have or complete a bowel movement? No (0) Usually experience a feeling of incomplete bladder emptying? No (0) Ever have to push up on a bulge in the vaginal area with your fingers to start or complete urination? No (0) Feel you need to strain too hard to have a bowel movement? No (0) Feel you have not completely emptied your bowels at the end of a bowel movement? Yes, somewhat bothersome (2) Usually lose stool beyond your control if your stool is well formed? Yes, somewhat bothersome (2) Usually lose stool beyond your control if your stool is loose? Yes, somewhat bothersome (2) Usually lose gas from the rectum beyond your control? No (0) Usually have pain when you pass your stool? No (0) Experience a strong sense of urgency and have to rodriguez to the bathroom to have a bowel movement? Yes, quite a bit bothersome (4) Does part of your bowel ever pass through the rectum and bulge outside during or after a bowel movement? No (0) Usually experience frequent urination? Yes, quite a bit bothersome (4) Usually experience urine leakage associated with a feeling of urgency, that is, a strong sensation of needing to go to the bathroom? Yes, quite a bit bothersome (4) Usually experience urine leakage related to coughing, sneezing or laughing? Yes, quite a bit bothersome (4) Usually experience small amounts of urine leakage (that is, drops)? Yes, quite a bit bothersome (4) Usually experience difficulty emptying your bladder? No (0) Usually experience pain or discomfort in the lower abdomen or genital region? Yes, somewhat bothersome (2) Do you have pain associated with your prolapse (not pressure or fullness) No PFIQ-7 How do symptoms or conditions relating to the following usually affect your: Bladder or urine Bowel or rectum Vagina or pelvis 1. Ability to do acidizer helper (cooking, housecleaning, laundry) Quite a bit somewhat Not at all 2. Ability to do physical activities such as walking, swimming or other exercise Quite a bit somewhat Not at all 3. Entertainment activities such as going to a movie or concert? somewhat somewhat Not at all 4. Ability to travel by car or bus for a distance greater than 30 minutes away from home? somewhat somewhat Not at all (more content not included)... [facility] 06-30-2022 Instructions Jud Gomes APRN.RECREATION THERAPIST - 06/30/2022 10:56 AM EDT Images from the original note were not included. INFORMATION ON URODYNAMICS (BLADDER FUNCTION TEST) Getting Ready for the Test You do not have to fast before the test. Begin to drink 24-32 ounces of fluid (water, cranberry juice, milk, herbal tea) 90 minutes prior to the test so you arrive at the [facility] with the urge to empty your bladder. You should not be uncomfortable. If you have urinary urgency, you may adjust the amount of water and the time that you drink the water to suit the bladder. Avoid drinks with caffeine on the day of your test (e.g. coffee, tea and dmitri). Bathe or shower before your test. A woman's menstrual cycle does not interfere with the test. You may wear a tampon. If you currently wear a pessary for pelvic organ prolapse, please wear it to your appointment. You may find it more comfortable if you have a bowel movement before the test. This is not essential. Do not empty your bladder when you arrive at the [facility]. Speak with a nurse if you feel you must empty your bladder. If you are taking antibiotics for a urinary tract infection (UTI) or bladder infection, notify your physician's office immediately. We may reschedule your bladder test. Bring a list of all prescribed and [id number] medications you are taking. If you should need assistance due to a language barrier or medical needs/condition, please notify the home health scheduler when making your appointment and one will be provided for you ([phone]). If you are taking overactive bladder medications like Detrol (Tolterodine), Ditropan (Oxybutynin), Vesicare (Solifenacin), Enablex (Darifenacin), Gelnique (topical Oxybutynin), or Oxytrol (transdermal Oxybutynin) Sanctura (Trospium), Myrbetriq (Mirabegron), Toviaz (Fesoterodine) please discontinue for 3 days prior to testing. What Happens During the Test You change into a hospital gown. The nurse asks you about your symptoms and general health before starting the test. There are three phases to the test: Phase 1 You are asked to urinate into a container. The container is joined to a computer that records the speed and amount of urine you pass. Phase 2 A small catheter is inserted into your bladder and another small catheter is inserted into your rectum or vagina. Your bladder will be slowly filled with sterile water and the nurse will ask you a series of questions while your bladder is being filled. This part of the test shows what happens in the bladder as it fills. It measures: How much pressure there is How much fluid you hold before you feel full How much your bladder can hold If you leak when you cough or bear down Phase 3 The catheter and rectal or vaginal catheter are removed when your test is finished. Overactive Bladder What is an overactive bladder? Overactive bladder represents a collection of symptoms that include: Urinary urgency -failure to be able to postpone the need to urinate Frequency of urination -the need to urinate at least eight times per day Urge incontinence -leakage of urine when one gets the urge to urinate Nocturia -the need to get up and urinate at least two times per night What causes an overactive bladder? Urine leakage and bladder control problems can have many possible causes that include: Weak pelvic muscles -muscles that have become stretched and weak due to and childbirth, which in turn have let the bladder sag out of position and have stretched the opening of the urethra causing urine leakage. Nerve damage -sending signals to the brain and bladder to empty at the wrong time. Diseases that can cause nerve damage include diabetes, Parkinson's, multiple sclerosis, and stroke. Traumas that can cause nerve damage include pelvic or back surgery, herniated disc, and radiation. Medications, alcohol, and caffeine -these products can dull the nerves, affecting the signal to the brain, resulting in bladder overflow. Diuretics and caffeine can cause rapid bladder filling and may cause bladder leakage. Infection -a urinary tract infection (UTI) can irritate bladder nerves and cause the bladder to squeeze without warning. Excess weight -being overweight puts pressure on the bladder and contributes to urge incontinence. Estrogen deficiency after menopause -may contribute to loss of urine due to urgency. Ask your doctor if vaginal-only estrogen therapy is right for you. This is different from systemic hormone therapy, which is absorbed throughout the body. How is overactive bladder treated? Bladder over activity is a very common condition. It is very treatable, but requires assistance from both the doctor and the patient. Treatment can range from behavioral modification techniques to drugs to procedures. If you move on to medications or procedures, it is important to continue to use the behavioral modification techniques to increase your chances of treatment success. What behavioral modification techniques can you do to help your overactive bladder? Keep a log During a typical day, write down your fluid intake, the number of times that you urinate, the number of accidents and when they occur (after coughing, sneezing, laughing, because you were not able to reach the bathroom in time, etc.). Monitor your diet Eliminate or decrease foods or beverages that may worsen bladder symptoms. These include: Alcoholic beverages Cantaloupe [place] and spicy foods Apples & apple juice [place] fruit Chocolate Tea & Coffee (including decaffeinated) Grapes Sugars: especially artificial sweeteners, saccharin, aspartame, sucrose, lactose, fructose, corn sweeteners, honey Carbonated beverages Guava Cranberries & cranberry juice Peaches Tomatoes & tomato juice Pineapple Vitamin B complex Milk products: milk, cheese, yogurt, cottage cheese, ice cream Plums Vinegar Strawberries Maintain bowel regularity Constipation can place added pressure on the bladder and have a negative effect on bladder function. By keeping healthy bowel habits, you may be able to avoid constipation and help to lessen bladder symptoms. The following are some suggestions for maintain bowel regularity: Increase fiber intake by eating foods such as beans, pasta, oatmeal, bran cereal, whole wheat bread, and fresh fruits and vegetable. Every morning take 2 tablespoons of this mixture: 1 cup applesauce, 1 cup unprocessed wheat bran, and cup prune juice. Exercise to maintain regular bowel movements. If you continue to have bowel problems, see your doctor. Maintain a healthy weight Being overweight can add pressure on your bladder, which may contribute to bladder problems. If you are overweight, weight loss can reduce pressure on your bladder. Stop smoking Cigarette smoking is irritating to the bladder muscle. Repeated coughing spasms due to smoker's cough can cause urine leakage. Drink non-irritating fluids People with bladder symptoms often drink fewer liquids so they don't have to urinate as often. You should drink about 3 to 4 glasses of liquids per day. Try to spread them out as evenly as possible throughout the day. Drinking fewer fluids causes you to produce more concentrated (dark yellow, strong-smelling) urine. Highly concentrated urine is irritating to the bladder and may actually cause more frequent urination. Limit your intake starting 2 or 3 hours before going to bed. Decrease or eliminate beverages that might worse bladder symptoms (see list under 2). Begin bladder retraining When you have overactive bladder, over time your bladder muscles become conditioned to react in a certain way. By retraining these muscles, you can hold urine better. Bladder retraining involves working with a healthcare professional to learn how to resist or inhibit the feeling of urgency, postpone voiding, and urinate according to a timetable (rather than in response to a feeling of urgency). To begin bladder training, you should start with your current voiding interval. For example, if you urinate every hour on average, this would be your current voiding interval. Once the beginning voiding interval has been established, you train your bladder to urinate on schedule. For example, you will need to urinate every 2 hours while awake with no voiding in between the interval. If you develop urgency in between the voiding intervals, immediately sit down in a comfortable position, take slow deep breaths in and out of your mouth, and try to imagine yourself in a favorite vacation spot or use some other relaxation technique until the urge passes -then proceed to the bathroom. Empty the bladder around the clock at first. Don't wait until the last minute. For example, start every 2 hours, and if you have remained dry, then increase the time between urinations. If you are wet, then decrease that time to every hour, and gradually increase the time between bathroom visits. If you normally go every hour, try to increase it to 1 hour and 15 minutes between visits. When you can maintain your new schedule without accident for 1 to 2 weeks, try increasing the time between bathroom visits by an additional 15 minutes until you reach an interval you feel comfortable with. The goal is to reach an interval of 2 to 4 hours between bathroom visits. Stick to the schedule as much as possible. Control the urge The gasca to bladder retraining is developing the ability to control urinary urges. When you experience a sudden urge, the following strategies may help: Stop what you are doing and stay put. Sit down when possible, or stand quietly. Remain very still. When you are still, it is easier to control your urge. Squeeze your pelvic floor muscles quickly several times. Do not relax fully in between. Relax the rest of your body. Take a few deep breaths to help you relax and let go of your tension. Concentrate on suppressing the urge feeling. Wait until the urge subsides. Walk to the bathroom at a normal pace. Do not rodriguez. Continue squeezing your pelvic floor muscles quickly while you walk. Be patient An entire bladder retraining program usually takes at least 6 to 8 weeks to produce results. Talk to your doctor about the best way to manage the symptoms of overactive bladder. He or she may recommend a combination of overactive bladder medication and bladder retraining to help you achieve the best outcome. Drug treatments Drugs can work very well to return normal function to the bladder. The type selected is based on the specific bladder control problem. Treatment usually begins at a low dose followed by a gradual dose increase. The intent is to use the lowest effective dose, which in turn will reduce the risk of experience side effects. Ask your doctor about the risks and benefits of using the following commonly prescribed drugs: Oxybutynin (Ditropan), Oxybutynin XL (Ditropan XL), Oxybutynin TDDS (Oxytrol) Oxybutynin Gel (Gelnique) Tolterodine (Detrol) Solifenacin (Vesicare) Fesoterodine (Toviaz) Darifenacin (Enablex) Trospium (Sanctura XR) Mirabegron (Myrbetriq) Procedures Percutaneous Tibial Nerve Stimulation (PTNS) This is an office-based procedure that electrically stimulates the nerves that control the bladder. An acupuncture needle is placed at the ankle and stimulation is delivered for 30 minutes. These sessions occur once per week for twelve weeks followed by monthly maintenance therapy. Bladder Injections This is an office-based procedure where botulinum toxin (Botox) is injected into the bladder to help it relax. Injections are given about twice per year. Rarely, these injections may cause trouble urinating. Sacral Nerve stimulation Sacral nerve stimulation is a therapy that electrically stimulates the nerves that control the bladder. A small device (a neurotransmitter) is implanted under the skin in the upper buttock area. The device sends mild electrical impulses through a lead (a wire) close to the sacral nerve (a nerve located in the lower back). The impulses, in turn, help provide bladder control. The therapy is tested with an office nerve test. If the nerve test is successful, the implant is placed. Useful Internet resources Https://www.Tippr.org/ https://www.niddk.nih.gov/health -information https://www.[facility].org/ Bladder Training Program for Overactive Bladder & Urge Incontinence: Definition: Overactive bladder is described as involuntary contractions of the bladder, occurring at inappropriate times without the person's permission. These bladder contractions, or spasms, can lead to feelings of urinary frequency, urgency, pelvic discomfort or pressure and the loss of urine (incontinence). Urge incontinence is described as the involuntary loss of urine associated with a sudden urge to urinate, the sensation of a full bladder or without any sensation at all. This can happen anytime throughout the day or night and is not usually associated with activity (laugh, cough, sneeze). The goals of this bladder retraining program are to improve voluntary control of the bladder and decrease or eliminate symptoms such as frequency, urgency & incontinence. These goals are accomplished by a combination of medication (bladder relaxants ), pelvic muscle exercises, changes in diet & changes in urinary habits. This program requires diligence and dedication on the part of the patient. In certain cases, a program of electrical stimulation and/or biofeedback may be implemented. Bladder Training Program: Pelvic Muscle Exercises (Kegel): These exercises serve two purposes: they strengthen the supporting structures of the bladder and urethra and they help reduce or eliminate stress incontinence (loss of urine associated with laugh, cough, sneeze, etc). They also start a reflex which causes bladder relaxation and stops involuntary bladder contractions. The easiest way to learn which pelvic muscles to exercise is first to identify these muscles by stopping and starting the stream of urine. Once you have the feel of matias these muscles, practice matias and holding for about 10 seconds and then relax for 10 seconds. Repeat these exercises 10 times and do this at least 4 times daily. Try not to contract the abdominal muscles while matias the pelvic floor muscles. Do not continue to start and stop the urinary stream; use this technique only initially to identify the pelvic floor muscles. Quick Flicks : When you get an urge to urinate, quickly contract your pelvic muscles (quick kegels). This will start a reflex to relax the bladder. Then, you will be able to hold off on going to urinate and slowly retrain the bladder to accommodate more urine. This will help to eliminate frequency and urgency. Fluid Restriction: The less you drink, the less urine your body makes. By decreasing your daily fluid intake, you can increase the time until the critical volume of urine is reaches that triggers an urge to urinate. Normal, healthy patients should be able to restrict their fluid intake to 4-6 eight ounce glasses daily. If nighttime frequency and urgency are a problem for you, you should limit your fluid intake in the evenings after dinner (within 3 hours of bedtime). This will help to reduce your nightly urine production, allowing you to sleep better. You should avoid caffeinated beverages such as coffee, tea, iced tea, etc. Try to drink caffeine-free tea (herbal tea) as well as decaffeinated coffee. Also avoid alcohol and wine as these also increase urine production and cause frequent urination. Changing Urinary Habits: Try to progressively delay the urge to urinate over the next several weeks. When you sense an urge to urinate, delay going to the bathroom and perform the pelvic muscle exercises described previously. Try each week to wait a little longer before urinating once the urge is noticeable. This process will help to retrain your bladder, so that it learns to accommodate more urine progressively. Continue to urinate at regular intervals throughout the day, without waiting until you are too full. The final goal should be normal urination every 3-4 hours without significant discomfort. Bladder Diary: You may be asked to keep a voiding diary/log. Record each time that you urinate for a typical 48-72 hour period. You may also be asked to measure the amount of urine each time. You should also record any episodes of incontinence (urine loss) or bladder pain. Common Bladder Irritants (to avoid): Alcoholic beverages: Artificial sweeteners and colors/dyes Tomatoes Beer Chocolate Spicy foods Wine Risco syrup [place] juices and fruit Caffeine: Sugar Carbonated fluids Soft drinks with caffeine Coffee Tea (including green tea) Medicines with caffeine Medication: You may be prescribed medication to help relax the bladder and reduce the involuntary contractions. There are several different medications which may be used, all with similar side effects. The common side effects include constipation, dry mouth, excessive thirst, blurred vision, flushing and dizziness. If you experience bothersome side effects, please call your doctor's office immediately so that the dose can be adjusted or another medication can be prescribed. If you have glaucoma, constipation or bowel problems, difficulty urinating or problems with your heart rhythm, you may not be able to take these medications. documented in this encounter [facility] 06-30-2022 History of Presen t illness Narrative Female Pelvic Medicine & Reconstructive Surgery Consult CHIEF COMPLAINT: Ting Vega is a 82 year old female who presents for consultation requested by Miryam Wells APRN.CNP for an opinion regarding Female stress incontinence. HISTORY OF PRESENT ILLNESS: Patient presents today with bend up who lives near her. Is here today for mixed urinary incontinence. States she is leaking large amounts of urine both with coughing/laughing/sneezing/stand ing/walking and with urgency. States once leakage starts, she is unable to stop the leakage. She wears a depends. She has tried Detrol LA 4mg with no improvement in symptoms. She has mobility issues which makes getting to the restroom in time difficult. She also takes daily diuretics d/t fluid retention. She is on Macrobid right now for +E. Coli on 06/26/22 UCx. Had c.diff 3 weeks ago, thinks it may have returned, is leaving sample today for testing. GFR from labs on 06/11/2022 46 mL/min, CrCl calculated to be 79 mL/min. Follows with nephrology. States Dr. Maya inserted IUD 5 years ago, states she is unable to have a hysterectomy so had Mirena placed, was having abnormal bleeding. Denies recent abnormal bleeding. Denies concern for pelvic organ prolapse. Urinary Incontinence: yes, mixed Voiding Dysfunction: no Urinary Frequency: yes, Voids every 30 minutes Voids 0 times a night, wears double depends, will leak outside of this about 2x/week. States she wakes up saturated in urine. 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 She has no history of an abnormal mammogram LMP: No LMP recorded. Patient is postmenopausal.; Menopause yes: Menstrual history: Menarche: 12; Deliveries: C/Sec History of third or fourth degree laceration: No Weight of largest baby: 7 or 8lbs Sexual function Sexually active: Not sexually active PFDI-20 Do you: Usually experience pressure in the lower abdomen? Yes, somewhat bothersome (2) Usually experience heaviness or dullness in the pelvic area? No (0) Usually have a bulge or something falling out that you can see or feel in your vaginal area? No (0) Ever have to push on the vagina or around the rectum to have or complete a bowel movement? No (0) Usually experience a feeling of incomplete bladder emptying? No (0) Ever have to push up on a bulge in the vaginal area with your fingers to start or complete urination? No (0) Feel you need to strain too hard to have a bowel movement? No (0) Feel you have not completely emptied your bowels at the end of a bowel movement? Yes, somewhat bothersome (2) Usually lose stool beyond your control if your stool is well formed? Yes, somewhat bothersome (2) Usually lose stool beyond your control if your stool is loose? Yes, somewhat bothersome (2) Usually lose gas from the rectum beyond your control? No (0) Usually have pain when you pass your stool? No (0) Experience a strong sense of urgency and have to rodriguez to the bathroom to have a bowel movement? Yes, quite a bit bothersome (4) Does part of your bowel ever pass through the rectum and bulge outside during or after a bowel movement? No (0) Usually experience frequent urination? Yes, quite a bit bothersome (4) Usually experience urine leakage associated with a feeling of urgency, that is, a strong sensation of needing to go to the bathroom? Yes, quite a bit bothersome (4) Usually experience urine leakage related to coughing, sneezing or laughing? Yes, quite a bit bothersome (4) Usually experience small amounts of urine leakage (that is, drops)? Yes, quite a bit bothersome (4) Usually experience difficulty emptying your bladder? No (0) Usually experience pain or discomfort in the lower abdomen or genital region? Yes, somewhat bothersome (2) Do you have pain associated with your prolapse (not pressure or fullness) No PFIQ-7 How do symptoms or conditions relating to the following usually affect your: Bladder or urine Bowel or rectum Vagina or pelvis 1. Ability to do acidizer helper (cooking, housecleaning, laundry) Quite a bit somewhat Not at all 2. Ability to do physical activities such as walking, swimming or other exercise Quite a bit somewhat Not at all 3. Entertainment activities such as going to a movie or concert? somewhat somewhat Not at all 4. Ability to travel by car or bus for a distance greater than 30 minutes away from home? somewhat somewhat Not at all 5. Participating in social activities outside your home? somewhat somewhat Not at all 6. Emotional health (nervousness, depression etc). somewhat somewhat Not at all 7. Feeling frustrated? Quite a bit Quite a bit Not at all PAST SURGICAL HISTORY Procedure Laterality Date ANESTHESIA HERNIA REPAIR LOWER ABDOMEN NOS 04/2004,05/11 gortex put in on 05/11 then taken out06/08 ARTHRP KNE CONDYLE&PLATU MEDIAL&LAT COMPARTMENTS 1990 bilateral total knee s([place]) ARTHRP KNE CONDYLE&PLATU MEDIAL&LAT COMPARTMENTS 10/24/04 bilateral total knee revisions DELIVERY ONLY , low cervical CHOLECYSTECTOMY COLONOSCOPY FLX DX W/COLLJ SPEC WHEN PFRMD 11/17/2017 Colonoscopy DEBRIDEMENT SUBCUTANEOUS TISSUE 20 SQ CM/< 02/17/07 LEFT LEG DEBRIDEMENT SUBCUTANEOUS TISSUE 20 SQ CM/< [id number] LEFT LEG DEBRIDEMENT SUBCUTANEOUS TISSUE 20 SQ CM/< [id number] LEFT LEG DEBRIDEMENT SUBCUTANEOUS TISSUE 20 SQ CM/< [id number] LEFT LEG DEBRIDEMENT SUBCUTANEOUS TISSUE 20 SQ CM/< [id number] LEFT LEG DEBRIDEMENT SUBCUTANEOUS TISSUE 20 SQ CM/< 03/03/07 LEFT LEG ESOPHAGOGASTRODUODENOSCOPY TRANSORAL DIAGNOSTIC 11/17/2017 EGD GASTRIC BYPASS 07/08 HEMORRHOIDECTOMY INTERNAL RUBBER BAND LIGATIONS HYSTEROSCOPY BX W/WO D&C 01/07/2018 PAST SURGICAL HISTORY OF 04/10/2016 Nancy and new knee cap put in right leg PAST SURGICAL HISTORY OF 04/25/2016 had to debri right leg wound with cellutitis infection PAST MEDICAL HISTORY Diagnosis Date Chronic airway obstruction, not elsewhere classified Essential hypertension, benign Insomnia 07/30/2011 Obesity, unspecified Open wound of knee, leg (except thigh), and ankle, complicated Other pulmonary embolism and infarction Phlebitis and thrombophlebitis of femoral vein (deep) (superficial) (HCC) Unspecified sleep apnea FAMILY HISTORY Problem Relation Age of Onset Cancer Mother ovarian Current Outpatient Medications Medication Sig diclofenac (VOLTAREN) 1 % topical gel APPLY 4 G TO AFFECTED AREA FOUR TIMES DAILY. nitrofurantoin monohydrate and macrocrystal (MACROBID) 100 mg capsule Take 1 capsule by mouth twice daily with meals for 7 days. phenazopyridine (PYRIDIUM) 100 mg tablet Take 2 tablets by mouth three times daily as needed for up to 10 days. omeprazole (PRILOSEC) 20 mg capsule TAKE 1 CAPSULE BY MOUTH ONCE DAILY zolpidem (AMBIEN) 10 mg Take 1 tablet by mouth at bedtime as needed for up to 90 days. tolterodine ER (DETROL LA) 4 mg 24 hr capsule TAKE 1 CAPSULE BY MOUTH ONCE DAILY gabapentin (NEURONTIN) 300 mg capsule Take 1 capsule by mouth three times daily for 90 days. Take one pill 3 times per day Do not start before May 08, 2022. acetaminophen (TYLENOL) 500 mg tablet Take 1,000 mg by mouth twice daily. Diaper,Brief, Adult,Disposable (DEPEND UNDERWEAR FOR WOMEN XL) Use 5/day as needed for urinary incontinence metoprolol succinate ER (TOPROL XL) 50 mg 24 hr tablet Take by mouth. furosemide (LASIX) 20 mg tablet Take 1 tablet by mouth once daily. (Patient taking differently: Take 40 mg by mouth once daily.) levothyroxine (LEVOXYL) 125 mcg tablet Take 1 tablet by mouth once daily. Take on empty stomach. For thyroid. Sbdpnftktjk-Vbapfkfgy-Bhh C-Mn (GLUCOSAMINE CHONDROITIN MAXSTR) 500-400 mg cap Take 1 capsule by mouth three times daily. COMPOUNDED PRESCRIPTION Stair lift DAILY-LUISITO tablet TAKE 1 TABLET BY MOUTH ONCE DAILY. aowjvcf-viaxymipk-jjtsiel D3 (CALCIUM 500+D) 500 mg(1,250mg) -200 unit per tablet Take 1 tablet by mouth twice daily with meals. vitamin b complex (B COMPLETE) tab Take 1 tablet by mouth once daily. hydrocortisone (ANUSOL-HC) 2.5 % rectal cream 1 application by RECTAL route twice daily. calcium acetate (PHOSLO) 667 mg capsule TAKE 1 CAPSULE BY MOUTH THREE TIMES DAILY. Magnesium 200 mg tab Take 200 mg by mouth once daily. Zinc 50 mg tab Take 1 tablet by mouth once daily. cholecalciferol (VITAMIN D3) 1,000 unit tab tablet Take 2 tablets by mouth once daily. senna-docusate (SENNA-S) 8.6-50 mg per tablet Take 1 tablet by mouth once daily. ascorbic acid(VITAMIN C 500 MG TAB) Take one(1) tablet daily. VITAMIN E 400 UNIT CAP Take one(1) tablet twice daily. pyridoxine hcl(VITAMIN B-6 100 MG TAB) Take one(1) tablet daily. CENTRUM PERFORMANCE TAB Take one(1) tablet daily. mirabegron (MYRBETRIQ) 25 mg Tb24 Take 1 tablet by mouth once daily. lisinopril-hydroCHLOROthiazide (PRINZIDE,ZESTORETIC) 10-12.5 mg per tablet Take 1 tablet by mouth once daily. (Patient not taking: Reported on 06/30/2022) No current facility-administered medications for this visit. ALLERGIES Allergen Reactions Aspirin Intolerance Bactrim [Sulfametho* Hives Blisters: head to toe Ibuprofen Rash Kefzol [Cefazolin S* Hives Peanut Butter [Othe* throat swelling, convulsions Sulfa (Sulfonamide * Hives, Unknown Blisters: head to toe SOCIAL HISTORY Social History Tobacco Use Smoking status: Former Packs/day: 0.25 Years: 1.00 Pack years: 0.25 Types: Cigarettes Quit date: 04/06/1953 Years since quittin.2 Smokeless tobacco: Never Vaping Use Vaping Use: Never used Substance Use Topics Alcohol use: Yes Comment: occasionally Drug use: No Comment: used drugs for 3 years Occupation: retired Marital Status: single REVIEW OF SYSTEMS General: Negative for unintentional weight loss, fever, chills, or weakness. Skin: Negative for rash or itching. Psychiatric: Negative for depression. Reports normal stress. Neurologic: Negative for new headache or syncope. Endocrine: Negative for sweating, cold intolerance or heat intolerance. Cardiovascular: Negative for recent chest pain, chest pressure or chest discomfort. Hematologic/Lymphatic: easy bruising Respiratory: wheezing Gastrointestinal: persistent abdominal pain Musculoskeletal: back pain, joint pain, joint stiffness I have confirmed and edited as necessary, the PFSH and ROS obtained by others. Jud Gomes APRN.RECREATION THERAPIST Linseed Oil Order Filler offered: Patient declines. OBJECTIVE: BP 135/80 Pulse 66 Resp 16 Ht 5' 2.008 (1.58m) Wt 299 lb (135.6kg) SpO2 94% BMI 54.67 kg/(m^2). Physical Exam Constitutional: BMI - Body mass index is 54.67 kg/m . General Appearance: Well appearing, alert, in no acute distress, well-hydrated, well nourished., Morbidly obese, and Wheelchair Skin: Skin color, texture, turgor normal, no suspicious rashes or lesions Lungs: Not examined Heart: Not examined Breasts: Deferred Pelvic: exam deferred due to patient's limited mobility, will plan for pelvic exam at UDS appointment UA results: N/A being treated for UTI Bladder scan: N/A IMPRESSION: Ting Vega is a 82 year old female with Stress Urinary Incontinence, Urge Urinary Incontinence. PLAN: 1. Female stress incontinence - Discussed conservative management of KACIE, including kegel exercises, formal pelvic floor physical therapy +/- biofeedback, OTC vaginal inserts, and pessary with anti incontinence knob. We also discussed surgical management with bulking agents and synthetic mid urethral slings. - Patient considering pessary, will contact office - Patient would like to pursue third line therapies, scheduling UDS - URODYNAMICS [facility]I 2. Urge urinary incontinence - Discussed the etiology and management of urgency urinary incontinence, urinary urgency and frequency (also known as overactive bladder). Described the care pathway for this problem including 1st and 2nd line treatment options of lifetstyle modifications, behavioral therapy, bladder retraining +/- physical therapy, and medications. Also briefly described 3rd line options such as intravesical botox and neuromodulation. - Reviewed bladder irritants and their impact on symptoms, including soda, tea, coffee, carbonation. Gave patient a list to review at home and recommended she attempt to decrease these irritants and increase water intake - Patient prefers defer Pelvic Floor Physical Therapy, interested in trying another medication and then pursuing intradetrusor botox if she fails medication - CrCl calculated using external chemistry lab from 06/11/2022, 79 mL/min - Reviewed r/b/a of myrbetriq. Stop detrol, start mybetriq. Patient to call office if symptoms do not improve in 4-6 weeks for increased dosage - mirabegron (MYRBETRIQ) 25 mg Tb24; Take 1 tablet by mouth once daily. Dispense: 30 tablet; Refill: 5 - URODYNAMICS WHI - Pelvic exam to be done at time of UDS, Dr. Shafer approved I spent a total of 60 minutes on the date of the service which included preparing to see the patient, [id number] patient care, completing clinical documentation, obtaining and/or reviewing separately obtained history, performing a medically appropriate examination, counseling and educating the patient/family/caregiver, and ordering medications, tests, or procedures. My final recommendations will be communicated back to the requesting physician by way of shared Medical record or letter via US mail. Jud Gomes APRN.CJ documented in this encounter [facility] 06-27-2022 Miscellaneous Notes Patient returned call and given provider's message below. Gabino Baxter RN Message left with person answering phone to have pt return the call. Kaleigh Wooten LPN Please let the patient know that her urine sample shows signs of infection for a UTI. The urine culture is not back yet, likely over the weekend. Continue with antibiotic as prescribed by Miryam. Mulugeta Jennings APRN.CJ documented in this encounter [facility] 06-26-2022 Note HNO ID: [id number] Author: Miryam Wells APRN.CJ Service: ? Author Type: Nurse Practitioner Type: Progress Notes Filed: 06/26/2022 10:09 AM Note Text: This is a 82 year old female who presents today with: No chief complaint on file. HISTORY OF PRESENT ILLNESS: Ting Vega is a 82 year old female. No chief complaint on file. Here in the office for follow-up. Dysuria that started 4 days ago. Lower abdominal pressure. Urine has an abnormal smell. No fever or chills. History of incontinence, requesting consult to urology for further evaluation and treatment options Chronic back pain: Following with pain management, Dr. Jackson, will be having SPR device placement on the right side July 02 in [place]. Knee Pain: Would like a prescription for Voltaren gel. History of C. Difficile: Was seen by general surgery, Dr. Recio. Had blood noted in the stool. Treated. Repeat C. difficile testing was normal. If Refers that she has noticed smelly stools again after eating meals. Would like repeat testing. LLE: Lasix 80, 60, 40, Thu, Thu, Thursday for Lasix per Nehrology. Cardiology: seeing Dr. Jackson tomorrow. Has been having SOB with activity. PAST MEDICAL HISTORY: PAST MEDICAL HISTORY Diagnosis Date Chronic airway obstruction, not elsewhere classified Essential hypertension, benign Insomnia 07/30/2011 Obesity, unspecified Open wound of knee, leg (except thigh), and ankle, complicated Other pulmonary embolism and infarction Phlebitis and thrombophlebitis of femoral vein (deep) (superficial) ([facility]) Unspecified sleep apnea PAST SURGICAL HISTORY Procedure Laterality Date ANESTHESIA HERNIA REPAIR LOWER ABDOMEN NOS 04/2004,05/11 gortex put in on 05/11 then taken out06/08 ARTHRP KNE CONDYLEANDPLATU MEDIALANDLAT COMPARTMENTS 1990 bilateral total knee s([place]) ARTHRP KNE CONDYLEANDPLATU MEDIALANDLAT COMPARTMENTS 10/24/04 bilateral total knee revisions DELIVERY ONLY , low cervical CHOLECYSTECTOMY COLONOSCOPY FLX DX W/COLLJ SPEC WHEN PFRMD 11/17/2017 Colonoscopy DEBRIDEMENT SUBCUTANEOUS TISSUE 20 SQ CM/< 02/17/07 LEFT LEG DEBRIDEMENT SUBCUTANEOUS TISSUE 20 SQ CM/< [id number] LEFT LEG DEBRIDEMENT SUBCUTANEOUS TISSUE 20 SQ CM/< [id number] LEFT LEG DEBRIDEMENT SUBCUTANEOUS TISSUE 20 SQ CM/< [id number] LEFT LEG DEBRIDEMENT SUBCUTANEOUS TISSUE 20 SQ CM/< [id number] LEFT LEG DEBRIDEMENT SUBCUTANEOUS TISSUE 20 SQ CM/< 03/03/07 LEFT LEG ESOPHAGOGASTRODUODENOSCOPY TRANSORAL DIAGNOSTIC 11/17/2017 EGD GASTRIC BYPASS 07/08 HEMORRHOIDECTOMY INTERNAL RUBBER BAND LIGATIONS HYSTEROSCOPY BX W/WO DANDC 01/07/2018 PAST SURGICAL HISTORY OF 04/10/2016 Nancy and new knee cap put in right leg PAST SURGICAL HISTORY OF 04/25/2016 had to debri right leg wound with cellutitis infection ALLERGIES Aspirin, Bactrim [Sulfamethoxazole-Trimethoprim], Ibuprofen, Kefzol [Cefazolin Sodium], Peanut Butter [Other], and Sulfa (Sulfonamide Antibiotics) MEDICATIONS Current Outpatient Medications Medication Sig omeprazole (PRILOSEC) 20 mg capsule TAKE 1 CAPSULE BY MOUTH ONCE DAILY zolpidem (AMBIEN) 10 mg Take 1 tablet by mouth at bedtime as needed for up to 90 days. tolterodine ER (DETROL LA) 4 mg 24 hr capsule TAKE 1 CAPSULE BY MOUTH ONCE DAILY gabapentin (NEURONTIN) 300 mg capsule Take 1 capsule by mouth three times daily for 90 days. Take one pill 3 times per day Do not start before May 08, 2022. acetaminophen (TYLENOL) 500 mg tablet Take 1,000 mg by mouth twice daily. Diaper,Brief, Adult,Disposable (DEPEND UNDERWEAR FOR WOMEN XL) Use 5/day as needed for urinary incontinence metoprolol succinate ER (TOPROL XL) 50 mg 24 hr tablet Take by mouth. furosemide (LASIX) 20 mg tablet Take 1 tablet by mouth once daily. (Patient taking differently: Take 40 mg by mouth once daily.) levothyroxine (LEVOXYL) 125 mcg tablet Take 1 tablet by mouth once daily. Take on empty stomach. For thyroid. Hcrxhmmzmis-Otabqcdjt-Ree C-Mn (GLUCOSAMINE CHONDROITIN MAXSTR) 500-400 mg cap Take 1 capsule by mouth three times daily. lisinopril-hydroCHLOROthiazide (PRINZIDE,ZESTORETIC) 10-12.5 mg per tablet Take 1 tablet by mouth once daily. COMPOUNDED PRESCRIPTION Stair lift DAILY-LUISITO tablet TAKE 1 TABLET BY MOUTH ONCE DAILY. rpbwyah-frbzjyvbx-ezfhzpk D3 (CALCIUM 500+D) 500 mg(1,250mg) -200 unit per tablet Take 1 tablet by mouth twice daily with meals. vitamin b complex (B COMPLETE) tab Take 1 tablet by mouth once daily. hydrocortisone (ANUSOL-HC) 2.5 % rectal cream 1 application by RECTAL route twice daily. calcium acetate (PHOSLO) 667 mg capsule TAKE 1 CAPSULE BY MOUTH THREE TIMES DAILY. Magnesium 200 mg tab Take 200 mg by mouth once daily. Zinc 50 mg tab Take 1 tablet by mouth once daily. cholecalciferol (VITAMIN D3) 1,000 unit tab tablet Take 2 tablets by mouth once daily. senna-docusate (SENNA-S) 8.6-50 mg per tablet Take 1 tablet by mouth once daily. ascorbic acid(VITAMIN C 500 MG TAB (more content not included)... [facility] 06-26-2022 Instructions Miryam Wells APRN.CNP - 06/26/2022 9:18 AM EDT Provide a urine sample at the lab when possible Start Macrobid, take as directed, stay well hydrated. May use pyridium as needed for pain, will turn urine bright orange. May use Voltaren gel to knees as needed. Continue to Lasix for lower leg swelling, elevate the legs when possible. Consult for urology has been placed. Order will be faxed to Dr. Hernandez, she is located in [facility], 2nd floor. Keep scheduled appointments with Dr. Acosta and Dr. Jackson Follow up in 3 months or sooner as needed. documented in this encounter [facility] 06-26-2022 History of Presen t illness Narrative This is a 82 year old female who presents today with: No chief complaint on file. HISTORY OF PRESENT ILLNESS: Ting Vega is a 82 year old female. No chief complaint on file. Here in the office for follow-up. Dysuria that started 4 days ago. Lower abdominal pressure. Urine has an abnormal smell. No fever or chills. History of incontinence, requesting consult to urology for further evaluation and treatment options Chronic back pain: Following with pain management, Dr. Jackson, will be having SPR device placement on the right side July 02 in [place]. Knee Pain: Would like a prescription for Voltaren gel. History of C. Difficile: Was seen by general surgery, Dr. Recio. Had blood noted in the stool. Treated. Repeat C. difficile testing was normal. If Refers that she has noticed smelly stools again after eating meals. Would like repeat testing. LLE: Lasix 80, 60, 40, Thu, Thu, Thursday for Lasix per Nehrology. Cardiology: seeing Dr. Jackson tomorrow. Has been having SOB with activity. PAST MEDICAL HISTORY: PAST MEDICAL HISTORY Diagnosis Date Chronic airway obstruction, not elsewhere classified Essential hypertension, benign Insomnia 07/30/2011 Obesity, unspecified Open wound of knee, leg (except thigh), and ankle, complicated Other pulmonary embolism and infarction Phlebitis and thrombophlebitis of femoral vein (deep) (superficial) (HCC) Unspecified sleep apnea PAST SURGICAL HISTORY Procedure Laterality Date ANESTHESIA HERNIA REPAIR LOWER ABDOMEN NOS 04/2004,05/11 gortex put in on 05/11 then taken out06/08 ARTHRP KNE CONDYLE&PLATU MEDIAL&LAT COMPARTMENTS 1990 bilateral total knee s([place]) ARTHRP KNE CONDYLE&PLATU MEDIAL&LAT COMPARTMENTS 10/24/04 bilateral total knee revisions DELIVERY ONLY , low cervical CHOLECYSTECTOMY COLONOSCOPY FLX DX W/COLLJ SPEC WHEN PFRMD 11/17/2017 Colonoscopy DEBRIDEMENT SUBCUTANEOUS TISSUE 20 SQ CM/< 02/17/07 LEFT LEG DEBRIDEMENT SUBCUTANEOUS TISSUE 20 SQ CM/< [id number] LEFT LEG DEBRIDEMENT SUBCUTANEOUS TISSUE 20 SQ CM/< [id number] LEFT LEG DEBRIDEMENT SUBCUTANEOUS TISSUE 20 SQ CM/< [id number] LEFT LEG DEBRIDEMENT SUBCUTANEOUS TISSUE 20 SQ CM/< [id number] LEFT LEG DEBRIDEMENT SUBCUTANEOUS TISSUE 20 SQ CM/< 03/03/07 LEFT LEG ESOPHAGOGASTRODUODENOSCOPY TRANSORAL DIAGNOSTIC 11/17/2017 EGD GASTRIC BYPASS 07/08 HEMORRHOIDECTOMY INTERNAL RUBBER BAND LIGATIONS HYSTEROSCOPY BX W/WO D&C 01/07/2018 PAST SURGICAL HISTORY OF 04/10/2016 Nancy and new knee cap put in right leg PAST SURGICAL HISTORY OF 04/25/2016 had to debri right leg wound with cellutitis infection ALLERGIES Aspirin, Bactrim [Sulfamethoxazole-Trimethoprim], Ibuprofen, Kefzol [Cefazolin Sodium], Peanut Butter [Other], and Sulfa (Sulfonamide Antibiotics) MEDICATIONS Current Outpatient Medications Medication Sig omeprazole (PRILOSEC) 20 mg capsule TAKE 1 CAPSULE BY MOUTH ONCE DAILY zolpidem (AMBIEN) 10 mg Take 1 tablet by mouth at bedtime as needed for up to 90 days. tolterodine ER (DETROL LA) 4 mg 24 hr capsule TAKE 1 CAPSULE BY MOUTH ONCE DAILY gabapentin (NEURONTIN) 300 mg capsule Take 1 capsule by mouth three times daily for 90 days. Take one pill 3 times per day Do not start before May 08, 2022. acetaminophen (TYLENOL) 500 mg tablet Take 1,000 mg by mouth twice daily. Diaper,Brief, Adult,Disposable (DEPEND UNDERWEAR FOR WOMEN XL) Use 5/day as needed for urinary incontinence metoprolol succinate ER (TOPROL XL) 50 mg 24 hr tablet Take by mouth. furosemide (LASIX) 20 mg tablet Take 1 tablet by mouth once daily. (Patient taking differently: Take 40 mg by mouth once daily.) levothyroxine (LEVOXYL) 125 mcg tablet Take 1 tablet by mouth once daily. Take on empty stomach. For thyroid. Arihtubmabv-Jjodbocot-Byt C-Mn (GLUCOSAMINE CHONDROITIN MAXSTR) 500-400 mg cap Take 1 capsule by mouth three times daily. lisinopril-hydroCHLOROthiazide (PRINZIDE,ZESTORETIC) 10-12.5 mg per tablet Take 1 tablet by mouth once daily. COMPOUNDED PRESCRIPTION Stair lift DAILY-LUISITO tablet TAKE 1 TABLET BY MOUTH ONCE DAILY. wapjpsa-hmjrtsbpw-ndhrdoj D3 (CALCIUM 500+D) 500 mg(1,250mg) -200 unit per tablet Take 1 tablet by mouth twice daily with meals. vitamin b complex (B COMPLETE) tab Take 1 tablet by mouth once daily. hydrocortisone (ANUSOL-HC) 2.5 % rectal cream 1 application by RECTAL route twice daily. calcium acetate (PHOSLO) 667 mg capsule TAKE 1 CAPSULE BY MOUTH THREE TIMES DAILY. Magnesium 200 mg tab Take 200 mg by mouth once daily. Zinc 50 mg tab Take 1 tablet by mouth once daily. cholecalciferol (VITAMIN D3) 1,000 unit tab tablet Take 2 tablets by mouth once daily. senna-docusate (SENNA-S) 8.6-50 mg per tablet Take 1 tablet by mouth once daily. ascorbic acid(VITAMIN C 500 MG TAB) Take one(1) tablet daily. VITAMIN E 400 UNIT CAP Take one(1) tablet twice daily. pyridoxine hcl(VITAMIN B-6 100 MG TAB) Take one(1) tablet daily. CENTRUM PERFORMANCE TAB Take one(1) tablet daily. No current facility-administered medications for this visit. FAMILY HISTORY Problem Relation Age of Onset Cancer Mother ovarian Social History Tobacco Use Smoking status: Former Packs/day: 0.25 Years: 1.00 Pack years: 0.25 Types: Cigarettes Quit date: 04/06/1953 Years since quittin.2 Smokeless tobacco: Never Vaping Use Vaping Use: Never used Substance Use Topics Alcohol use: Yes Comment: occasionally Drug use: No Comment: used drugs for 3 years REVIEW OF SYSTEMS GENERAL: No weight loss, malaise or fevers/chills HEENT: Negative for frequent or significant headaches, No changes in hearing or vision. NECK: Negative for lumps, goiter, pain and significant neck swelling RESPIRATORY: Negative for cough, hemoptysis, wheezing, dyspnea or shortness of breath CARDIOVASCULAR: Negative for chest pain, leg swelling, orthopnea, or palpitations GI: No nausea, vomiting, or diarrhea/constipation. No hematochezia/melena. No heartburn or reflux symptoms. : + Dysuria MUSCULOSKELETAL: Negative for joint pain or swelling. SKIN: Negative for lesions, rash, and itching ENDOCRINE: Negative for cold or heat intolerance, polyuria, polydipsia and goiter NEURO: No history of headaches, syncope, paralysis, seizures or tremors MOOD: Negative for depression, anxiety, or suicidal ideation. EXAM: BP 124/76 Pulse 77 Resp 20 Wt 135.6 kg (299 lb) SpO2 96% BMI 54.69 kg/m PHYSICAL EXAM: General Appearance: Well appearing, alert, in no acute distress, well-hydrated, well nourished. Skin: Skin color, texture, turgor normal, no suspicious rashes or lesions. Head: Normocephalic, no masses, lesions, tenderness or abnormalities. Eyes: Anicteric sclera. Extraocular movements are intact. Lungs: Lungs clear to auscultation. No wheezing, rhonchi, rales. Heart: RRR without murmur, gallop, or rubs. No ectopy. Abdomen: Abdomen soft, non-tender. Bowel sounds normal. No masses, organomegaly, Negative CVA tenderness. Extremities: No deformities, edema, skin discoloration, clubbing or cyanosis. Good capillary refill. Musculoskeletal: + 2 pitting edema noted on lower legs bilaterally. No erythema noted. Peripheral Pulses: Normal, Capillary refill <2secs, strong peripheral pulses, Pulses palpable. Neurologic: Gait normal. Sensation grossly intact. ASSESSMENT/PLAN: 1. Dysuria - ICD9: 788.1, ICD10: R30.0 (primary diagnosis) acute - Patient education for prevention given - Unable to give urine sample in office, will go to lab to provide. - Start Macrobid - Stay well hydrated, may use pyridium as needed. - NITROFURANTOIN MONOHYDRATE & MACROCRYSTAL 100 MG ORAL CAP - URINE CULTURE - URINALYSIS, WITH MICROSCOPIC - PHENAZOPYRIDINE 100 MG TABLET 2. Female stress incontinence - ICD9: 625.6, ICD10: N39.3 - Consult will be faxed to Dr. Hernandez's office. - CONSULT TO UROLOGY 3. Leg swelling - ICD9: 729.81, ICD10: M79.89 - Continue to use Lasix - Elevate the legs. 4. Chronic knee pain, unspecified laterality - ICD9: 719.46, 338.29, ICD10: M25.569, G89.29 - DICLOFENAC 1 % TOPICAL GEL 5. Chronic right-sided low back pain without sciatica - ICD9: 724.2, 338.29, ICD10: M54.50, G89.29 - Keep scheduled appointment with pain management. 6. Change in stool - ICD9: 792.1, ICD10: R19.5 - C. DIFFICILE PCR Follow-up in 3 months or sooner as needed. Discussed treatment plan and patient voices understanding. Patient's questions answered appropriately. Medications and potential side effects were discussed and patient voices understanding. Miryam Wells APRN.CJ This note was partially generated using [employer] recognition system. Note was reviewed for accuracy. There may be minor misspellings or grammar miscues with [employer] voice recognition. documented in this encounter [facility] 06-04-2022 Miscellaneous Notes Addended by: ROQUE JACKSON on: 06/04/2022 04:09 PM Modules accepted: Orders Xanax and Antibiotics for SPR sent to pharmacy. Patient can pickup right away. Note: Going with just 3 days antibiotics instead of usual 7 due to history of C Diff infection. Roque Jackson III, MD, DENNIS Ting Vega has been scheduled for SPR device placement - right side on 07/02/22 at 1:40pm, with Roque Jackson MD at [address], [place] [address]. Ting Vega has been scheduled for Lead pull - right side on 09/04/22 at 9:45am, with Roque Jackson MD at [address], [place] [address]. Ting Vega has been scheduled for SPR device placement - left side on 07/30/22 at 1pm, with Roque Jackson MD at [address], [place] [address]. Ting Vega has been scheduled for Lead pull - left side on 10/02/22 at 9:45am, with Roque Jackson MD at [address], [place] [address]. Please call in Xanax and Antibiotics to e- [id number] [place] [phone] - [phone] [facility] - [phone] [facility] [phone] [facility] [facility] [address] Patient has allergies to Allergies: Aspirin Intolerance Bactrim [Sulfametho* Hives Comment:Blisters: head to toe Ibuprofen Rash Kefzol [Cefazolin S* Hives Peanut Butter [Othe* Comment:throat swelling, convulsions Sulfa (Sulfonamide * Hives, Unknown Comment:Blisters: head to toe Mailed patient pre procedure instructions and appointment reminders to patient. Samantha Marx Business Law Professor to Dr. Roque Jackson, Spinal Cord Stimulator, Peripheral Nerve Stimulator, [facility] [place] [address] [address] P: [phone] ext. [phone] F: [phone] documented in this encounter [facility] 05-30-2022 Miscellaneous Notes I have attempted to contact this patient by phone, Spoke with someone that took a message stating to give me a call back at [phone] [phone]. I have received the approval for the SPR device and I was trying to get her scheduled. Samantha Marx documented in this encounter [facility] 05-26-2022 Miscellaneous Notes Patient referred to urogynecology for urinary incontinence. Currently, Dr. Shafer is only seeing surgical consults. Patient can be scheduled with urogynecology PATIENT COORDINATOR FRONT DESK- Jud Gomes. LMTCB, contact information provided. documented in this encounter [facility] 05-19-2022 Miscellaneous Notes Noted, thank you. Miryam Wells APRN.CNP See update, FYI. Suzette Myles Ma Patient calls to report that she over-slept this morning for her 8 am appointment with Miryam Rainey d/t having cold symptoms (cough and nasal congestion). Patient called at 8:14 am. Offered to schedule another appointment. Patient reports she will call back when feeling better and has her calendar available. Olga Dillard RN documented in this encounter [facility] 05-16-2022 History of Presen t illness Narrative HISTORY AND PHYSICAL Ting Vega 1940 REFERRING PHYSICIAN: Miryam Wells APRN.C* CHIEF COMPLAINT: Consult (Hernia in upper abdomen, and rectal bleeding) HPI: The patient is a 81 year old female with a complaint of multiple current issues. The patient's presenting complaint related to liquid dark bloody stools for 2 weeks. The patient initially denied any antibiotic use recently but then there was a question of dental work with antibiotics. The patient presented with a complaint to her PCP of 3 weeks of watery foul-smelling stools which then noted to become somewhat bloody. She had stool cultures obtained on May 05, 2022. Was found to be positive for occult blood. Enteric pathogen panel was negative. C. difficile was positive for toxin by PCR but not EIA. The patient was treated with vancomycin. She still notes watery stools but notes no bloody stools notes that her fatigue is somewhat improving. She should complete her vancomycin this week. Patient also notes issues with urinary incontinence. She is using an adult diaper. She is noted that this has been a challenge for her to leave the house. Lastly, she noted fall and noted landing and discomfort on her right hip and left elbow region. She is asking if I could obtain an x-ray for these areas. Had multiple incisional hernia repairs in the past. She notes lower abdominal bulging. She underwent a CT scan in July 2021. 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 I performed upper endoscopy and colonoscopy on November 16, 2017 for anal rectal pain. The patient was found to have minimal gastritis, healthy gastrojejunostomy, anal stenosis with bleeding, and a small polyp in the transverse colon which was removed. Pathology demonstrated: MICROSCOPIC DIAGNOSIS A. Antrum, biopsy: Mild gastritis. B. Transverse colon polyp, biopsy: Tubular adenoma. C. 30 cm colon, random biopsy: Fragments of colonic mucosa, no pathologic diagnosis. The patient is being seen by me today at the request of Miryam Wells APRN.C* my opinion and advice regarding C. difficile colitis. PAST MEDICAL HISTORY Diagnosis Date Chronic airway obstruction, not elsewhere classified Essential hypertension, benign Insomnia 07/30/2011 Obesity, unspecified Open wound of knee, leg (except thigh), and ankle, complicated Other pulmonary embolism and infarction Phlebitis and thrombophlebitis of femoral vein (deep) (superficial) (HCC) Unspecified sleep apnea PAST SURGICAL HISTORY Procedure Laterality Date ANESTHESIA HERNIA REPAIR LOWER ABDOMEN NOS 04/2004,05/11 gortex put in on 05/11 then taken out06/08 ARTHRP KNE CONDYLE&PLATU MEDIAL&LAT COMPARTMENTS 1990 bilateral total knee s([place]) ARTHRP KNE CONDYLE&PLATU MEDIAL&LAT COMPARTMENTS 10/24/04 bilateral total knee revisions DELIVERY ONLY , low cervical CHOLECYSTECTOMY COLONOSCOPY FLX DX W/COLLJ SPEC WHEN PFRMD 11/17/2017 Colonoscopy DEBRIDEMENT SUBCUTANEOUS TISSUE 20 SQ CM/< 02/17/07 LEFT LEG DEBRIDEMENT SUBCUTANEOUS TISSUE 20 SQ CM/< [id number] LEFT LEG DEBRIDEMENT SUBCUTANEOUS TISSUE 20 SQ CM/< [id number] LEFT LEG DEBRIDEMENT SUBCUTANEOUS TISSUE 20 SQ CM/< [id number] LEFT LEG DEBRIDEMENT SUBCUTANEOUS TISSUE 20 SQ CM/< [id number] LEFT LEG DEBRIDEMENT SUBCUTANEOUS TISSUE 20 SQ CM/< 03/03/07 LEFT LEG ESOPHAGOGASTRODUODENOSCOPY TRANSORAL DIAGNOSTIC 11/17/2017 EGD GASTRIC BYPASS 07/08 HEMORRHOIDECTOMY INTERNAL RUBBER BAND LIGATIONS HYSTEROSCOPY BX W/WO D&C 01/07/2018 PAST SURGICAL HISTORY OF 04/10/2016 Nancy and new knee cap put in right leg PAST SURGICAL HISTORY OF 04/25/2016 had to debri right leg wound with cellutitis infection Current Outpatient Medications Medication Sig vancomycin (VANCOCIN) 125 mg capsule Take 1 capsule by mouth four times daily for 10 days. omeprazole (PRILOSEC) 20 mg capsule TAKE 1 CAPSULE BY MOUTH ONCE DAILY zolpidem (AMBIEN) 10 mg Take 1 tablet by mouth at bedtime as needed for up to 90 days. tolterodine ER (DETROL LA) 4 mg 24 hr capsule TAKE 1 CAPSULE BY MOUTH ONCE DAILY gabapentin (NEURONTIN) 300 mg capsule Take 1 capsule by mouth three times daily for 90 days. Take one pill 3 times per day Do not start before May 08, 2022. acetaminophen (TYLENOL) 500 mg tablet Take 1,000 mg by mouth twice daily. Diaper,Brief, Adult,Disposable (DEPEND UNDERWEAR FOR WOMEN XL) Use 5/day as needed for urinary incontinence metoprolol succinate ER (TOPROL XL) 50 mg 24 hr tablet Take by mouth. furosemide (LASIX) 20 mg tablet Take 1 tablet by mouth once daily. (Patient taking differently: Take 40 mg by mouth once daily.) levothyroxine (LEVOXYL) 125 mcg tablet Take 1 tablet by mouth once daily. Take on empty stomach. For thyroid. Czktxuzdlas-Njspihabv-Zao C-Mn (GLUCOSAMINE CHONDROITIN MAXSTR) 500-400 mg cap Take 1 capsule by mouth three times daily. lisinopril-hydroCHLOROthiazide (PRINZIDE,ZESTORETIC) 10-12.5 mg per tablet Take 1 tablet by mouth once daily. COMPOUNDED PRESCRIPTION Stair lift DAILY-LUISITO tablet TAKE 1 TABLET BY MOUTH ONCE DAILY. xoyvtmq-wbjdokros-nnndpry D3 (CALCIUM 500+D) 500 mg(1,250mg) -200 unit per tablet Take 1 tablet by mouth twice daily with meals. vitamin b complex (B COMPLETE) tab Take 1 tablet by mouth once daily. hydrocortisone (ANUSOL-HC) 2.5 % rectal cream 1 application by RECTAL route twice daily. calcium acetate (PHOSLO) 667 mg capsule TAKE 1 CAPSULE BY MOUTH THREE TIMES DAILY. Magnesium 200 mg tab Take 200 mg by mouth once daily. Zinc 50 mg tab Take 1 tablet by mouth once daily. cholecalciferol (VITAMIN D3) 1,000 unit tab tablet Take 2 tablets by mouth once daily. senna-docusate (SENNA-S) 8.6-50 mg per tablet Take 1 tablet by mouth once daily. ascorbic acid(VITAMIN C 500 MG TAB) Take one(1) tablet daily. VITAMIN E 400 UNIT CAP Take one(1) tablet twice daily. pyridoxine hcl(VITAMIN B-6 100 MG TAB) Take one(1) tablet daily. CENTRUM PERFORMANCE TAB Take one(1) tablet daily. No current facility-administered medications for this visit. ALLERGIES: Aspirin, Bactrim [Sulfamethoxazole-Trimethoprim], Ibuprofen, Kefzol [Cefazolin Sodium], Peanut Butter [Other], and Sulfa (Sulfonamide Antibiotics) PERSONAL HISTORY: Social History Tobacco Use Smoking status: Former Packs/day: 0.25 Years: 1.00 Pack years: 0.25 Types: Cigarettes Quit date: 04/06/1953 Years since quittin.1 Smokeless tobacco: Never Vaping Use Vaping Use: Never used Substance Use Topics Alcohol use: Yes Comment: occasionally Drug use: No Comment: used drugs for 3 years FAMILY HISTORY: FAMILY HISTORY Problem Relation Age of Onset Cancer Mother ovarian REVIEW OF SYMPTOMS: The review of systems data was entered by the nurse and reviewed by me Nursing Notes: Ting UmañaRUDDY 05/13/2022 3:25 PM Signed REVIEW OF SYSTEMS: General: The patient notes fatigue, denies weight loss, notes weight gain, denies feeling hot, and notes feelings of cold. Eyes: The patient denies glaucoma, denies eye injury/surgery, wears glasses or contacts. Ear/Nose/Throat: The patient notes allergies, denies hayfever, denies ear infections, and denies bloody noses. Cardiovascular: The patient notes chest pain, denies heart disease, denies high blood pressure,denies cardiac stent, denies prior heart attack, notes irregular heart beat, denies high cholesterol, denies poor circulation, denies heart failure, other cardiac issues, notes claudication, notes cold feet, denies peripheral arterial stent. Respiratory: The patient denies tuberculosis, denies pneumonia, denies frequent cough, denies pulmonary embolism, denies shortness of breath, and denies coughing up blood. Gastrointestinal: The patient denies difficulty swallowing, notes acid reflux, denies ulcers, denies vomiting, denies jaundice/hepatitis, denies gallbladder problems, notes black or tarry stools, notes hemorrhoids, notes bleeding from rectum, denies diverticulitis, denies constipation, notes diarrhea, denies loss of stool control, and notes hernias. Kidney/Bladder: The patient denies kidney stones, notes urine infections, and notes bloody urine. Skin: The patient denies a history of skin cancer, denies bleeding/changing moles, and denies a history of skin rash. Neurologic: The patient denies a history of epilepsy/convulsions, denies headaches, denies head/spinal injuries, and denies stroke/TIA. Psychiatric: The patient denies psychiatric medications, denies depression, and denies voices, denies substance abuse. Endocrine: The patient denies thyroid disorders, denies diabetes, and denies hormonal problems. Hematologic: The patient denies a history of bruising, denies bleeding, and denies anemia, denies blood clots. Infections: The patient denies a history of measles and mumps, denies rheumatic fever, and denies sexually transmitted diseases. Musculoskeletal: The patient denies back pain/injury, notes back problems, denies sciatica, denies knee/foot trouble, notes arthritis, or denies gout. When was patient's last Mammogram screening? 2019 Last Colonoscopy: 2017 Ting Umaña LPN PHYSICAL EXAMINATION: General: The patient is 81 year old female, well nourished, well hydrated in no acute distress. The patient is oriented to time, place, and person. She is present in a wheelchair VITALS: Blood pressure 108/58, pulse 74, temperature 36.7 C (98 F), height 157.5 cm (5' 2 ), weight 129.3 kg (285 lb), SpO2 91 %. HEENT: Normal cephalic, ataumatic, pupils are equally round, sclera are anicteric, mucous membranes are moist, oropharynx is clear. Neck has no masses, asymmetry or lymphadenopathy. Thyroid is unremarkable. Respiratory: Clear to auscultation and percussion. Normal respiratory excursion and pattern. Cardiac: Examination is regular rate and rhythm. Abdominal exam: Soft, nontender, with no palpable masses. No hepatosplenomegaly. No palpable hernias but truncal obesity and a lax abdominal wall. Rectal exam: exam deferred Extremities: no clubbing, cyanosis or edema. No adenopathy. Other: LABORATORY VALUES: As Noted RADIOLOGIC STUDIES: As Noted Assessment IMPRESSION: Recent C. difficile infection continued loose or watery stools, multiple previous hernia repairs without obvious incisional hernia, recent fall without fractures noted in hip or elbow. Urinary incontinence issues PLAN: I plan to have the patient repeat her C. difficile stool studies to assure that infection has resolved. If the infection was resolved then I would recommend fiber supplementation and probiotics. If the patient C. difficile remains positive would consider repeat treatment versus endoscopy to see if she has a true visible infection. Would not recommend Imodium until we know her C. difficile is negative. X-rays of her hip and elbow demonstrated no fractures. Discussed with the patient there is a new urogynecologist at [facility] Dr. Jessica Shafer -I will forward this note to her for her consideration/evaluation or for urologic incontinence issues. Diagnoses: (A04.72) C. difficile colitis (primary encounter diagnosis) (K62.5) Rectal bleeding (R19.5) Change in stool (W19.XXXA) Fall, initial encounter My findings have been communicated to [facility] via shared medical record. This note will be forwarded to Lizy Capone MD. Return to Clinic: The patient is instructed to follow-up with me as needed. Jae Cagle MD documented in this encounter [facility] 05-15-2022 Miscellaneous Notes Procedure(s) being scheduled: 1.Are you diabetic No 2. Are you on any blood thinners? No If yes, does it require a hold? No If yes, was approval letter sent? No 3. Are you taking any aspirin? No 4. Are you currently taking any antibiotics? No If yes, is it prophylactic or for treatment of an infection? 5. Do you have any allergies to latex? No 6. Do you have any allergies to seafood or shellfish? No 7. Do you have any allergies to x-ray dye? No 8. Did the physician instruct you to take any medication prior to your procedure? No 9. Does this procedure require a motor bus driver? Yes If yes, has patient been notified that a motor bus driver is needed and must be present at check in? Yes 10. Were the pre-procedure instructions explained and provided to the patient?yes 11. Do you have a pacemaker? No 12. Do you have an internal stimulator of any kind? No If yes, please bring the remote with you to your procedure visit. 13. Have you received the COVID-19 Vaccine? Yes. If yes, date(s) received: 06/04/20 (Patient should not receive a procedure including steroids 14 days prior to their first dose of the COVID vaccine. They should not receive any procedure containing steroids in the time frame between their 1st and 2nd doses of the COVID vaccine. They should not receive a procedure containing steroids 14 days after their 2nd dose of the COVID vaccine.) Ralph Rodriguez documented in this encounter [facility] 05-13-2022 History of Presen t illness Narrative Radiology Service Progress Note PATIENT NAME: Ting Vega DATE OF SERVICE: May 13, 2022 TIME: 4:33 PM PATIENT IDENTITY VERIFICATION COMPLETED USING TWO (2) IDENTIFIERS: Name and Date of confirmed by patient verbally. FALL SCREENING: Has the patient had 2 falls in the last year or 1 fall with injury or currently using an Ambulatory Assistive Device (Walker, Cane, Wheelchair, Crutches, etc.)? Yes, Patient High Risk for Falls What interventions were put in place to prevent falls during this visit? Offered Assistance with Transfers/Clothing and Instructed Patient to Remain Seated (Not on Exam Table) Until Exam PATIENT GENDER DATA: Female. status: : No status: NO. PATIENT RELEVANT IMPLANT DATA REVIEWED: Not Applicable RADIOLOGY DEPARTMENT: General X-ray: Exam(s) Completed: Pelvis X-Ray: Pelvis with Hip Right Upper Extremity X-Ray(s): Elbow, left PERIPHERAL IV DATA: Not applicable SIGNED BY: RT Gracy(R) May 13, 2022 4:33 PM documented in this encounter [facility] 05-13-2022 Nurse Note REVIEW OF SYSTEMS: General: The patient notes fatigue, denies weight loss, notes weight gain, denies feeling hot, and notes feelings of cold. Eyes: The patient denies glaucoma, denies eye injury/surgery, wears glasses or contacts. Ear/Nose/Throat: The patient notes allergies, denies hayfever, denies ear infections, and denies bloody noses. Cardiovascular: The patient notes chest pain, denies heart disease, denies high blood pressure,denies cardiac stent, denies prior heart attack, notes irregular heart beat, denies high cholesterol, denies poor circulation, denies heart failure, other cardiac issues, notes claudication, notes cold feet, denies peripheral arterial stent. Respiratory: The patient denies tuberculosis, denies pneumonia, denies frequent cough, denies pulmonary embolism, denies shortness of breath, and denies coughing up blood. Gastrointestinal: The patient denies difficulty swallowing, notes acid reflux, denies ulcers, denies vomiting, denies jaundice/hepatitis, denies gallbladder problems, notes black or tarry stools, notes hemorrhoids, notes bleeding from rectum, denies diverticulitis, denies constipation, notes diarrhea, denies loss of stool control, and notes hernias. Kidney/Bladder: The patient denies kidney stones, notes urine infections, and notes bloody urine. Skin: The patient denies a history of skin cancer, denies bleeding/changing moles, and denies a history of skin rash. Neurologic: The patient denies a history of epilepsy/convulsions, denies headaches, denies head/spinal injuries, and denies stroke/TIA. Psychiatric: The patient denies psychiatric medications, denies depression, and denies voices, denies substance abuse. Endocrine: The patient denies thyroid disorders, denies diabetes, and denies hormonal problems. Hematologic: The patient denies a history of bruising, denies bleeding, and denies anemia, denies blood clots. Infections: The patient denies a history of measles and mumps, denies rheumatic fever, and denies sexually transmitted diseases. Musculoskeletal: The patient denies back pain/injury, notes back problems, denies sciatica, denies knee/foot trouble, notes arthritis, or denies gout. When was patient's last Mammogram screening? 2019 Last Colonoscopy: 2017 Tign Umaña LPN documented in this encounter [facility] 05-06-2022 Miscellaneous Notes Left detailed message on secure identified voicemail. Pt only to return call /c any questions or concerns. Alfred Casanova LPN Can please let patient know that we received some of her stool testing back. It looks like she has an infection in her bowel called C. Diff. I went ahead and sent an antibiotic to the pharmacy. It is one pill by mouth 4 times daily X 10 days. Please advise that she shouldn't take any antidiarrheal medications. It is contagious, so if there is anyone else in the home and there is more than one bathroom, she should try to stick to one bathroom. Use good hand hygiene with soap/water. Please let us know if symptoms persist/worsen. Noemy Wilson APRN.CNP documented in this encounter [facility] 04-30-2022 Miscellaneous Notes Noted, thank you. Miryam Wells APRN.CNP Attempted to contact patient. Patient not available but friend Mellisa available and took message. (Mellisa verified on pt's account-able to share information with). Provider's message given below. Mellisa states the additional stool kits were not picked up for the stool studies and will be picked up at the Lab on 05/01/22. Josselin Baxter RN Can you please call the patient and let her know that her stool test did come back positive for blood. I would keep upcoming appointment with general surgery to discuss. The other stool studies have not been ran at this time, can you please verify if she stopped at the lab to get testing supplies? Thank you. Miryam Wells APRN.CNP documented in this encounter [facility] 04-29-2022 History of Presen t illness Narrative Radiology Service Progress Note PATIENT NAME: Ting Vega DATE OF SERVICE: April 29, 2022 TIME: 8:40 AM PATIENT IDENTITY VERIFICATION COMPLETED USING TWO (2) IDENTIFIERS: Name and Date of confirmed by patient verbally. FALL SCREENING: Has the patient had 2 falls in the last year or 1 fall with injury or currently using an Ambulatory Assistive Device (Walker, Cane, Wheelchair, Crutches, etc.)? Yes, Patient High Risk for Falls What interventions were put in place to prevent falls during this visit? Instructed Patient to Call for Help if Needed, Offered Assistance with Transfers/Clothing, Instructed Patient to Remain Seated (Not on Exam Table) Until Exam, and Increased Observations by Caregivers PATIENT GENDER DATA: Female. status: : No status: NO. PATIENT RELEVANT IMPLANT DATA REVIEWED: Yes RADIOLOGY DEPARTMENT: MR; Exam(s) Completed: Spine: Thoracic spine and Lumbar spine PERIPHERAL IV DATA: Not applicable SIGNED BY: Josie Herman RT(R) April 29, 2022 8:40 AM documented in this encounter [facility] 04-28-2022 Miscellaneous Notes Pt notified. Mellisa Lackey Ma I am not able to add an MRI of the hip; since that is a separate test so she would need an extra appt if it is needed. Start with the MRI back as ordered and scheduled. Lizy Capone MD Patient reports she is having MRI of back tomorrow and asking if provider can add the right hip, for MRI? States she is having pain in right hip also. Reports she tried to call pain management, Dr. Jackson, to ask this question but unable to reach that office. Reports she has great insurance and is not worried at all about them covering it. States you don't have to call her back, she will find out tomorrow when she has MRI back done, if right hip was added. documented in this encounter [facility] 04-17-2022 Miscellaneous Notes Spoke with pt and information listed below given. Pt verbalizes understanding. Viridiana Russ LPN OK to refill as ordered Lizy Capone MD Last office visit: 01/02/22 F/u scheduled: none Last refilled on: Ambien #30 with 2 refill on 01/20/22 Mellisa Lackey Ma Patient has been identified by name and date of : Yes Last office visit in this department: 01/02/2022 RX INSTRUCTIONS: Patient aware RX will be sent to pharmacy. No need to notify patient. Patient phones requesting refills as follows: Requested Prescriptions Pending Prescriptions Disp Refills zolpidem (AMBIEN) 10 mg 30 tablet 2 Sig: Take 1 tablet by mouth at bedtime as needed for up to 90 days. Please review and advise. Allison Do Pss documented in this encounter [facility] 04-16-2022 Miscellaneous Notes The following approved medication requests have been transmitted electronically. Requested Prescriptions Pending Prescriptions Disp Refills tolterodine ER (DETROL LA) 4 mg 24 hr capsule [Pharmacy Med Name: TOLTERODINE TART ER 4 MG CAP] 90 capsule 3 Sig: TAKE 1 CAPSULE BY MOUTH ONCE DAILY Mulugeta Jennings APRN.CJ Patient phones requesting refills as follows: Requested Prescriptions Pending Prescriptions Disp Refills tolterodine ER (DETROL LA) 4 mg 24 hr capsule [Pharmacy Med Name: TOLTERODINE TART ER 4 MG CAP] 90 capsule 3 Sig: TAKE 1 CAPSULE BY MOUTH ONCE DAILY ENDY-01/02/22 Labs-03/19/22 NOV-none med filled 05/03/21 Please review and advise. Minna Blue LPN documented in this encounter [facility] 03-04-2022 History of Presen t illness Narrative POPULATION HEALTH NAVIGATION OUTREACH Action/I 1st attempt: Left message for patient including my direct number Care Gaps Follow-up appointment Controlling Blood Pressure Pt identified by name and : NO Outreach Outcome/Action Unable to reach patient: Left message Did you use a PCP flex slot to schedule this appointment? N/A Reason for Outreach HCC or suspected condition Payer: Payor: MEDICARE / Plan: MEDICARE A AND B / Product Type: Medicare / Care Gap Reviewed:: Follow-up appointment Controlling Blood Pressure Reminder: Reminder note to check Health Maintenance for items below Health Maintenance items due: BP CONTROLLED (<130/80) Never done SHINGRIX VACCINE(2 of 3) due on 07/12/2009 ADVANCE DIRECTIVE DISCUSSION Never done DEPRESSION ASSESSMENT Never done Message Sent to Practice: YES Navigation Signatur Natalia Fowler March 04, 2022 5:23 PM documented in this encounter [facility] 02-18-2022 Miscellaneous Notes Rx mailed to pt home. Mellisa Lackey Ma Rx done Lizy Capone MD Pt called and is requesting a prescription for depends . She is incontinent and her insurance will cover. 5 depends per day and using 150 per week. Please mail the prescription to her and she will attach her receipts and mail to them. Pt wanted you to know her kidney doctor has increased her Lasix to 60 mg in am and 40 mg in the pm. Viridiana Russ LPN documented in this encounter [facility] 01-30-2022 Miscellaneous Notes 1.Are you diabetic No 2. Are you on any blood thinners? No 3. Are you taking any aspirin? No 4. Have you had any recent imaging done on your body part that's being injected? Yes MRI, XRAY 5. Do you have any allergies to latex? No 6. Do you have any allergies to seafood? No 7. Do you have any allergies to shellfish? No 8. Do you have any allergies to x-ray dye? No 9. Are you taking Xanax for the procedure? No 10. Have you done physical therapy in the last year? Yes If yes, When and Where? [facility] (Medical Records Release needs to be signed.) 11. Were the pre-procedure instructions explained to the patient? Yes, PRINTED AND EXPLAINED TO PATIENT 12. Do you have a pacemaker? No 13. Do you have an internal stimulator of any kind? No If yes, please bring the remote with you to your procedure visit. 14. Have you received the COVID-19 Vaccine? Yes. If yes, date(s) received: Printed and explained to patient (Patient should not receive a procedure including steroids 14 days prior to their first dose of the COVID vaccine. They should not receive any procedure containing steroids in the time frame between their 1st and 2nd doses of the COVID vaccine. They should not receive a procedure containing steroids 14 days after their 2nd dose of the COVID vaccine.) Bre Lamar documented in this encounter [facility] 01-30-2022 History of Presen t illness Narrative Review of Systems Constitutional: Negative for activity change, chills, fever and unexpected weight change. Gastrointestinal: Negative for bowel retention or incontinence Genitourinary: Negative for difficulty urinating. Negative for bladder retention or incontinence Musculoskeletal: Positive for arthralgias, back pain, gait problem, joint swelling, myalgias, neck pain and neck stiffness. Neurological: Positive for weakness. Negative for numbness and headaches. Psychiatric/Behavioral: Negative for dysphoric mood, sleep disturbance and suicidal ideas. The patient is not nervous/anxious. [facility] Today's Date: 01/30/2022 Last Visit: 11/28/2021 Name: Ting Vega : 1940 Purpose: Follow-up Encounter Chief complaint: Thoracic and low back pain Interval History: Ting Vega returns today for a follow-up encounter, reporting that since last encounter, the overall pain and functional disability arising from the chief complaint has worsened. Pain continues to be focused in the lumbar region, radiates into the bilateral flanks. No radiation into the lower limbs. Hot tub closed for the winter. Regarding medications: The following medication(s) were started or modified: Gabapentin - increased from 200mg TID to 300mg TID The following medication(s) were discontinued: none The following medication(s) were continued: Tylenol OTC Flexeril 10mg TID PRN Overall, the medication(s) have not helped improve pain and ADL's. They are well-tolerated. The following procedures were performed: DATE PROCEDURE IMPROVEMENT 01/08/2022 MBB Bilat L4-5,5-S1 80% x 4 hours (positive diagnostic) 12/25/2021 MBB Bilat L4-5,5-S1 80% x 4 hours (positive diagnostic) The following new imaging or diagnostic tests were obtained, with relevant findings reported below: None Recall: 11/2021 - PT: 13 visits between 10/15/2021 and 01/06/202209/2021 - Initial HPI - referred by Lizy Capone for low back pain This has been present for the past 3-4 months. No trauma. Extensive cardiac work up with no significant abnormalities. Cannot tolerate standing or ambulating for more then 10 minutes. Pain starts in her RIGHT lower back/flank area and radiates across her low back to LEFT side. Traumatic leg injury in 2007 (states she ran over her leg). Current Status: INTAKE PAIN ASSESSMENT 01/08/2022 01/30/2022 Are you having pain associated with your visit today? - Yes, Provider notified Pain Scales - Verbal (Numeric Rating or Visual Analog Scale) Pain Level 0 10 Pain Location - Back-Lower Description - Aching;Sharp;Radiating;Shooting Duration Amount of Time - - Duration Units - Years Frequency - Continuous Intervention/Comfort measure - Reposition;Relaxation;Positionin g Comments - - Pain Assessment Reassessment - Pain Description: Timing: constant Character: Dull Primary Location: thoracic and lumbar area Radiation: None Exacerbating factors: standing and walking Relieving factors: sitting and lying down Interferes with: physical activity and walking The patient reports no interrupted sleep per night The patient denies difficulty with bowel or bladder control, unintentional weight loss, fevers, chills, or night sweats and arm or leg weakness. Current Anti-Coagulant Use: No Allergies: ALLERGIES Allergen Reactions Aspirin Intolerance Bactrim [Sulfametho* Hives Blisters: head to toe Ibuprofen Rash Kefzol [Cefazolin S* Hives Peanut Butter [Othe* throat swelling, convulsions Sulfa (Sulfonamide * Hives, Unknown Blisters: head to toe Data Reviewed: Reviewed personally on today's date Relevant Imaging: MRI Spine Report No resulted procedures found. X-ray T/L Spine 09/2021: Thoracic: No acute fractures or subluxations are noted. Generalized disc space narrowing is visualized. There is significant osteophyte formation. The bones are somewhat osteopenic. There is no paraspinal mass or bony destructive process. Lumbar: There are five edj-jse-fyvhlkh lumbar vertebrae. No acute fracture or subluxations are noted. No change in alignment of the lumbar spine with lateral extension and lateral flexion. There is left-sided curvature/levoscoliosis. Disc space narrowing involving all levels. There is significant osteophyte formation, with facet arthrosis. Kissing spine seen on lateral view. XR Ribs 07/16/21: RESULT: Frontal radiograph of the chest and dedicated views of the left ribs show no evidence of pneumothorax, hemothorax or pulmonary contusion. The visualized bony structures are intact without apparent displaced or nondisplaced rib fracture. CT Abd/Pelvis 07/25/21: Bones/Soft Tissues: No acute abnormality. Degenerative changes. Scoliosis Lower thorax: Unremarkable. Electrodiagnostic Study (EMG): None Recent labs: Creatinine Date Value Ref Range Status 01/06/2022 1.46 (H) 0.58 - 0.96 mg/dL Final @lastegfr(gfr)@ No results found for: PCGLUCOSE Pain Procedures: DATE PROCEDURE IMPROVEMENT 01/08/2022 MBB Bilat L4-5,5-S1 80% x 4 hours (positive diagnostic) 12/25/2021 MBB Bilat L4-5,5-S1 80% x 4 hours (positive diagnostic) Compliance: PDMP website checked and validated. All prescriptions have been APPROPRIATELY filled. No suspicious activity was identified. By Roque Jackson MD 01/30/2022 Ambien monthly Last Drug screen: Not Applicable Risk Assessment: SANDRA-7: SANDRA - 7 SCORES 09/19/2021 SANDRA-7 Score 7 (0-4) minimal anxiety, (5-9) mild anxiety, (10-14) moderate anxiety, (15-21) severe anxiety PHQ-9: PHQ-9 09/19/2021 Score 4 (0-4) minimal depression, (5-9) mild depression, (10-14) moderate depression, (15-19) moderately severe depression, (20-27) severe depression Opioid Risk Tool: Family History of Substance Abuse: 0 - No Personal History of Substance Abuse: Yes Alcohol: 3 - Yes Illegal drugs: 4 - Yes Prescription drugs: No Age between 16-45: 0 - No History of Pre-Adolescence Sexual Abuse: 0 - No Psychological Disease: 0 - No Risk Total: 7 (0-3, low risk or no risk; 4-7, moderate risk, 8+, high risk) Current Medications, Past Medical History, Past Surgical History, Family History, Social History and Review of Systems: On today's date, noted above, I have confirmed and edited as necessary, the PFSH and ROS obtained by others. Physical Exam: 01/30/22 1550 Pulse: 67 Resp: 18 SpO2: 97% Constitutional:morbidly obese HEENT: Normal Cephalic, Atraumatic, Non-icteric sclera Eyes: Conjunctiva clear. No discharge from eyes Cardiovascular: Appears well perfused Lymphatic: No visible regional lymphadenopathy Skin: No visible rashes or ecchymosis Psychiatric: Full affect, Alert, Pleasant LUMBAR MUSCULOSKELETAL/NEURO EXAM Inspection: - Symmetric without atrophy, large scar with loss of soft tissue to LEFT LE/knee (hx of traumatic injury) Posture: Slouching posture, Scoliosis Gait: Antalgic Tandem Walk: Intact Spine Range of Motion: - Flexion: Limited with pain - Extension: Limited without pain -Rotation: Limited without pain Palpation: - Lumbar Paraspinal Tenderness: Concordant in the Bilateral lumbar paraspinals - Paraspinal Spasms: Mild - Facet Loading: Right-positive; Left-positive - Greater Trochanter: None tenderness Bilateral Strength: LEFT RIGHT Iliopsoas (L2) 5 5 Quadriceps (L3) 5 5 Anterior Tibialis (L4): 5 5 Exten Hallucis Longus (L5) 5 5 Gastrocnemius (S1): 5 5 Muscle Tone: - Normal and symmetric Neural Tension Signs: -Straight Leg Exam Negative Bilateral lower limb(s) -Contralateral Straight Leg Raise Negative Bilateral lower limb(s) Sensation: - intact to light touch in the L2-S2 Bilateral lower limb dermatomes Reflexes: LEFT RIGHT Patellar (L4) Decreased 1+ Decreased 1+ Achilles (S1) Decreased 1+ Decreased 1+ Clonus Negative Negative Hip Range of Motion: - deferred pain Sacroiliac Maneuvers: - SIJ tenderness: Negative Bilateral Althea's Signs: Deferred Diagnoses: (M47.816) Lumbar spondylosis (primary encounter diagnosis) (M79.18) Myofascial pain Impression & Plan: 81 year old female with significant past medical history for HTN, insomnia, CKD with hx of renal failure, OA, asthma, obesity, who presented with complaint(s) of Thoracic and lumbar pain for 3-4 months. No formal imaging of her lumbar spine. Her CT abd/pelvis images and note she has advanced degenerative changes of her lumbar spine, levoscoliosis is noted, congenital stenosis also noted, she has at least moderate to severe stenosis at L4/5 and perhaps moderate stenosis at L5/S1. Prominent facet hypertrophy is also noted. Her pain is most likely facet-mediated. No relief to date with PT Ting Vega would benefit from the following to decrease pain, improve function and/or work participation, and improve quality of life: -Interventional Procedure: Radiofrequency Ablation (RFA) bilateral L4-5 and L5-S1 under fluoroscopic guidance The risks, benefits, alternative treatment options and prognosis of the procedure were discussed and all of the patient's questions/concerns were addressed to the patient s satisfaction. Unless explicitly instructed otherwise, patient was advised that they will need a motor bus driver for after the procedure and that if no motor bus driver is available and on site at the time of the procedure, the procedure will be cancelled. For any anticoagulants, the patient was advised on whether to continue or hold for this procedure. The patient expressed understanding and gave verbal consent to proceed. Medications: Gabapentin 300mg TID Continue Tylenol 1gm TID prn as needed SANDRA-7/PHQ-2, and ORT: 09/19/2021 Completed and reviewed, moderate risk [facility]: Physical Therapy (Land-based) - Continue Additional Studies: None Referrals: None Additional: Consider MBB more proximal levels Consider Increasing Neurontin to 400mg TID or 600mg TID Consider MRI Lumbar Spine Depending on response to the above plan, consider: See above Follow-up: 2 months for evaluation of response to treatment plan and optimization Attribution: In addition to reviewing the information noted above, some elements copied from my most recent clinical note(s), including the physical exam (completed in entirety today), and the impression and plan sections, have been updated where appropriate. All reflect current medical decision making from today's date. Roque Jackson MD [facility] documented in this encounter [facility] 01-20-2022 Miscellaneous Notes Approved. PDMP website checked and validated. All prescriptions have been APPROPRIATELY filled. No suspicious activity was identified. 01/20/2022 by Mulugeta Jennings APRN.CNP The following approved medication requests have been transmitted electronically. Requested Prescriptions Signed Prescriptions Disp Refills zolpidem (AMBIEN) 10 mg 30 tablet 2 Sig: Take 1 tablet by mouth at bedtime as needed for up to 90 days. Authorizing Provider: MULUGETA JENNNIGS APRN.CNP Last office visit: 01/02/22 F/u scheduled: none Last refilled on: Ambien #30 with 2 refill on 10/24/21 Mellisa Lackey Ma Patient has been identified by name and date of : Yes Requested Prescriptions Pending Prescriptions Disp Refills zolpidem (AMBIEN) 10 mg 30 tablet 2 Sig: Take 1 tablet by mouth at bedtime as needed for up to 90 days. RX INSTRUCTIONS: Patient aware RX will be sent to pharmacy. No need to nofity patient. Controlled medication - must be call in. Shruthi Robbins Pss documented in this encounter [facility] 01-09-2022 Miscellaneous Notes Patient notified of results, verbalizes understanding of instructions. Minna Blue LPN Can you please call the patient and let her know that I reviewed her lab and ultrasound results. Ultrasound of abdomen was within normal limits. No ascites were noted. Her BNP however has gone up to 783. This can be significant for congestive heart failure. I would recommend that she have a follow-up with her wire rope sales representative. Lab results will be faxed to their office. Mild improvement with kidney function however I still would recommend that she follow-up with nephrology. Please let me know if she has any questions. Thank you. Miryam Wells APRN.RECREATION THERAPIST documented in this encounter [facility] 01-08-2022 Nurse Note Patient denies any numbness/tingling. documented in this encounter [facility] 01-08-2022 Surgical operatio n note OPERATIVE/PROCEDURE REPORT LOG ID: [id number] SURGERY/PROCEDURE DATE: 01/08/2022 INCISION/PROCEDURE START TIME: 11:20 AM INCISION CLOSE/PROCEDURE END TIME: 11:34 AM SURGEON(S)/PROCEDURALIST(S) AND CIVIL RIGHTS INVESTIGATOR(S): Surgeon(s) and Role: * Roque Jackson MD - Primary No Additional Staff SURGERY/PROCEDURE(S): Medial branch blocks bilateral L4-5 and L5-S1 Injectate: A total of 4cc, consisting of 4cc of 2% Lidocaine An additional 5cc of 1% Lidocaine was used for local anesthesia of the soft tissue and at the targeted location. ANESTHESIA: Local SURGERY/PROCEDURE DETAILS: Procedure: The patient was prepped and draped in a sterile fashion in the prone position after informed consent was signed and all patient questions were answered including the risks, benefits, alternative treatment options, and prognosis. The risks are as mentioned above, with the exception of Pneumothorax. To block the L5 dorsal rami, a spinal needle of the same dimensions as mentioned below was positioned at the junction of the superior articular process of the sacrum and the ala under biplanar fluoroscopic control. A 22 gauge, 5 inch spinal needle was inserted a few centimeters lateral to the pedicles of the remaining lumbar levels mentioned above and advanced ventral and medial through the muscles to the target point. Once the needle contacted periosteum at the superior-most medial edge of the transverse process, the C-arm was obliqued such that the axis of the lumbar facet joints could be fluoroscopically visualized, and the correct position of the needle confirmed. After contact with periosteum and negative aspirate for blood and CSF, correct placement without intravascular or epidural spread was confirmed by injecting 0.2cc of Omnipaque 300. A spot radiograph was obtained of this image. Next, a 0.5cc volume of the injectate noted above was placed. A needle was similarly directed to the other facet joint nerves mentioned above, with completion of the procedure at each level as described above. PRE-OP/PRE-PROCEDURE DIAGNOSIS: lumbar spondylosis POST-OP/POST-PROCEDURE DIAGNOSIS: Same as Preop ESTIMATED BLOOD LOSS: 0 ml SPECIMENS: None IMPLANTABLE DEVICES: None DRAINS: None COMPLICATIONS: None PARTICIPATION IN SURGERY/PROCEDURE: I/primary surgeon/proceduralist performed the entire procedure. SIGNATURE: Roque Jackson MD PATIENT NAME: Ting Vega DATE: January 08, 2022 TIME: 11:38 AM documented in this encounter [facility] 01-08-2022 History and physical note LOCAL PROCEDURE HISTORY & PHYSICAL EXAM SERVICE DATE: 01/08/2022 SERVICE TIME: 10:40 AM Provisional Diagnosis/Treatment Plan: Medial branch blocks bilateral L4-5 and L5-S1, #2 of 2, for facet-mediated low back pain due to Lumbar spondylosis Subjective HPI: This is a 81 year old female who presents here for above-mentioned treatment plan. MEDICATIONS: Prior to Admission medications as of 01/08/22 1039 Medication Sig Last Dose Taking metoprolol succinate ER (TOPROL XL) 50 mg 24 hr tablet Take by mouth. 01/07/2022 Yes gabapentin (NEURONTIN) 300 mg capsule Take one pill 3 times per day 01/07/2022 Yes furosemide (LASIX) 20 mg tablet Take 1 tablet by mouth once daily. Patient taking differently: Take 40 mg by mouth once daily. 01/07/2022 Yes zolpidem (AMBIEN) 10 mg Take 1 tablet by mouth at bedtime as needed for up to 90 days. 01/07/2022 Yes cyclobenzaprine (FLEXERIL) 10 mg tablet Take 1 tablet by mouth three times daily as needed for muscle spasm. Yes levothyroxine (LEVOXYL) 125 mcg tablet Take 1 tablet by mouth once daily. Take on empty stomach. For thyroid. 01/07/2022 Yes omeprazole (PRILOSEC) 20 mg capsule Take 1 capsule by mouth once daily. 01/07/2022 Yes tolterodine ER (DETROL LA) 4 mg 24 hr capsule Take 1 capsule by mouth once daily. 01/07/2022 Yes Cthmeqazlrt-Dikxavywd-Sjb C-Mn (GLUCOSAMINE CHONDROITIN MAXSTR) 500-400 mg cap Take 1 capsule by mouth three times daily. 01/07/2022 Yes lisinopril-hydroCHLOROthiazide (PRINZIDE,ZESTORETIC) 10-12.5 mg per tablet Take 1 tablet by mouth once daily. Yes DAILY-LUISITO tablet TAKE 1 TABLET BY MOUTH ONCE DAILY. 01/07/2022 Yes bsbarec-xkftuqxwg-ykpuwiu D3 (CALCIUM 500+D) 500 mg(1,250mg) -200 unit per tablet Take 1 tablet by mouth twice daily with meals. 01/07/2022 Yes vitamin b complex (B COMPLETE) tab Take 1 tablet by mouth once daily. 01/07/2022 Yes calcium acetate (PHOSLO) 667 mg capsule TAKE 1 CAPSULE BY MOUTH THREE TIMES DAILY. 01/07/2022 Yes Magnesium 200 mg tab Take 200 mg by mouth once daily. 01/07/2022 Yes Zinc 50 mg tab Take 1 tablet by mouth once daily. 01/07/2022 Yes cholecalciferol (VITAMIN D3) 1,000 unit tab tablet Take 2 tablets by mouth once daily. 01/07/2022 Yes senna-docusate (SENNA-S) 8.6-50 mg per tablet Take 1 tablet by mouth once daily. 01/07/2022 Yes ascorbic acid(VITAMIN C 500 MG TAB) Take one(1) tablet daily. 01/07/2022 Yes VITAMIN E 400 UNIT CAP Take one(1) tablet twice daily. 01/07/2022 Yes pyridoxine hcl(VITAMIN B-6 100 MG TAB) Take one(1) tablet daily. 01/07/2022 Yes CENTRUM PERFORMANCE TAB Take one(1) tablet daily. 01/07/2022 Yes gabapentin (NEURONTIN) 100 mg capsule Take 2 capsules by mouth three times daily for 30 days. COMPOUNDED PRESCRIPTION Stair lift hydrocortisone (ANUSOL-HC) 2.5 % rectal cream 1 application by RECTAL route twice daily. ALLERGIES Allergen Reactions Aspirin Intolerance Bactrim [Sulfametho* Hives Blisters: head to toe Ibuprofen Rash Kefzol [Cefazolin S* Hives Peanut Butter [Othe* throat swelling, convulsions Sulfa (Sulfonamide * Hives, Unknown Blisters: head to toe Objective PHYSICAL EXAM: The remainder of the physical exam is noncontributory. GENERAL: Alert, no distress, cooperative LUNGS: Lungs clear to auscultation, Good diaphragmatic excursion CARDIAC: Normal S1 and S2; no rubs, murmurs, or gallops NEURO: Gait normal. Reflexes normal and symmetric. Sensation grossly intact BP 173/69 Pulse 64 Temp 36.3 C (97.4 F) (Temporal) Resp 18 SpO2 98% PAIN ASSESSMENT: PAIN EVALUATION 01/08/2022 1036 Pain Level: 5 Pain Location: Back-Lower Description: Aching;Radiating;Stiffness;Dull Intervention/Comfort measure: Education Assessment/Plan Active Problems: Lumbar spondylosis POA: Yes Assessment & Plan: Medial branch blocks bilateral L4-5 and L5-S1 Resolved Problems: * No resolved hospital problems. * Medication and Non-Pharmacologic VTE Prophylaxis/Anticoagulants VTE Prophylaxis: VTE prophylaxis appropriate SIGNATURE: Roque Jackson MD PATIENT NAME: Ting Vega DATE: January 08, 2022 TIME: 10:40 AM documented in this encounter [facility] 01-07-2022 Miscellaneous Notes Patient calls and requests that nephrology referral, office notes, and labs to be faxed to Dr. Murillo at [phone]. Faxed as requested. Lora Najera RN documented in this encounter [facility] 01-06-2022 History of Presen t illness Narrative Episode Visit Count: 9 Therapist That Will Accept/Oversee The Plan Of Care: Allison Pryor Start of Care Date: 11/22/21 Onset Date: 11/23/19 (past 2 years has been worsening) Plan of Care Certification Date: 11/22/21 Next Certification Due Date: 01/22/22 Patient Identified by Name and Date of : Yes REHABILITATION AND SPORTS THERAPY PHYSICAL THERAPY TREATMENT NOTE ASSESSMENT: Ting Vega tolerated the session with no issues. She demonstrated improvements in report of relief following MLD treatments. The patient will continue to benefit from ongoing skilled physical therapy to progress toward set goals. PLAN FOR NEXT VISIT: B LE MLD and exercise. SUBJECTIVE: Patient Reason for Visit: Pt states her legs feel really good for about 4 hours after taras MLD sessions. She notes she is still in process of obtianing compression pump for home use. Pain: Pain Pain Level: 0 Post Treatment Pain Post Treatment Pain Level: 0 OBJECTIVE MEASURES WITH LEVEL OF FUNCTION: Lymphedema Skin Comments:: tissue soft except for scar areas L>R knees. No pitting observed. TREATMENT: Therapeutic Exercise: 1: Sunible seated stepper, seat 14, x 5 min Skilled Intervention: Patient was educated in proper exercise technique and purpose for exercises. Skilled judgment was provided in selection of appropriate interventions. Correct performance of therapeutic exercises was facilitated with verbal cuing. Patient education as noted. Manual Therapy: 1: MLD B LE sequence utilizing B inguino-axillary anastamoses. Deferred abdominal series d/t presence of hernia and previous gastric bypass surgery. Skilled Intervention: Manual skills to improve joint mobility, ROM, and decrease pain. Utilized anatomy knowledge of the therapist, and assessment of patient's response to intervention. Manual techniques to facilitate lymphatic dynamics and improve condition of tissue. Billing Therapeutic Exercise Treatment Minutes: 5 Manual TherapyTreatment Minutes: 38 Total Treatment Time Minutes (timed/untimed): 43 Allison Pryor PT documented in this encounter [facility] 01-02-2022 Instructions Miryam Wells APRN.CNP - 01/02/2022 7:32 AM EDT 1.) Get repeat labs completed either Thursday or Thursday. Schedule appointment for ultrasound. 2.) Increase Lasix to 60 mg daily. Elevate the legs. 3.) Stay well hydrated 4.) Watch salt and processed foods in the diet. 5.) Recommend follow up with Dr. Jackson. 6.) Follow up pending test results Schedule appointment with Nephrology. documented in this encounter [facility] 01-02-2022 History of Presen t illness Narrative This is a 81 year old female who presents today with: Patient presents with: Acute Visit: bilat leg swelling HISTORY OF PRESENT ILLNESS: Ting Vega is a 81 year old female. Patient presents with: Acute Visit: bilat leg swelling Here in the office for lower leg swelling. Leg swelling started to get worse about 3 months ago. Taking metoprolol succinate ER 50 mg daily, Lasix 40 mg daily. Stopped taking Prinzide 1012.5 daily. Due to LLE cannot get compression sock on. Will get SOB with exertion at times. No difficulty with sleep. Denies any chest pain, palpitatations, or dizziness. Has had a 33 lbs weight gain since 12/26/2021 Patient had office visit with [facility] due to lymphedema, labs were ordered, BNP elevated at 244.1, Per provider note patient has new abdominal ascites in addition to bilateral lower extremity lymphedema. Patient does follow with cardiology at [facility], Dr. Jackson. Bun 43, Creatinine: 1.45. Last Echo completed in September showed: PAST MEDICAL HISTORY: PAST MEDICAL HISTORY Diagnosis Date Chronic airway obstruction, not elsewhere classified Essential hypertension, benign Insomnia 07/30/2011 Obesity, unspecified Open wound of knee, leg (except thigh), and ankle, complicated Other pulmonary embolism and infarction Phlebitis and thrombophlebitis of femoral vein (deep) (superficial) (HCC) Unspecified sleep apnea PAST SURGICAL HISTORY Procedure Laterality Date ANESTHESIA HERNIA REPAIR LOWER ABDOMEN NOS 04/2004,05/11 gortex put in on 05/11 then taken out06/08 ARTHRP KNE CONDYLE&PLATU MEDIAL&LAT COMPARTMENTS 1990 bilateral total knee s([place]) ARTHRP KNE CONDYLE&PLATU MEDIAL&LAT COMPARTMENTS 10/24/04 bilateral total knee revisions DELIVERY ONLY , low cervical CHOLECYSTECTOMY COLONOSCOPY FLX DX W/COLLJ SPEC WHEN PFRMD 11/17/2017 Colonoscopy DEBRIDEMENT SUBCUTANEOUS TISSUE 20 SQ CM/< 02/17/07 LEFT LEG DEBRIDEMENT SUBCUTANEOUS TISSUE 20 SQ CM/< [id number] LEFT LEG DEBRIDEMENT SUBCUTANEOUS TISSUE 20 SQ CM/< [id number] LEFT LEG DEBRIDEMENT SUBCUTANEOUS TISSUE 20 SQ CM/< [id number] LEFT LEG DEBRIDEMENT SUBCUTANEOUS TISSUE 20 SQ CM/< [id number] LEFT LEG DEBRIDEMENT SUBCUTANEOUS TISSUE 20 SQ CM/< 03/03/07 LEFT LEG ESOPHAGOGASTRODUODENOSCOPY TRANSORAL DIAGNOSTIC 11/17/2017 EGD GASTRIC BYPASS 07/08 HEMORRHOIDECTOMY INTERNAL RUBBER BAND LIGATIONS HYSTEROSCOPY BX W/WO D&C 01/07/2018 PAST SURGICAL HISTORY OF 04/10/2016 Nancy and new knee cap put in right leg PAST SURGICAL HISTORY OF 04/25/2016 had to debri right leg wound with cellutitis infection ALLERGIES Aspirin, Bactrim [Sulfamethoxazole-Trimethoprim], Ibuprofen, Kefzol [Cefazolin Sodium], Peanut Butter [Other], and Sulfa (Sulfonamide Antibiotics) MEDICATIONS Current Outpatient Medications Medication Sig metoprolol succinate ER (TOPROL XL) 50 mg 24 hr tablet Take by mouth. gabapentin (NEURONTIN) 300 mg capsule Take one pill 3 times per day furosemide (LASIX) 20 mg tablet Take 1 tablet by mouth once daily. zolpidem (AMBIEN) 10 mg Take 1 tablet by mouth at bedtime as needed for up to 90 days. cyclobenzaprine (FLEXERIL) 10 mg tablet Take 1 tablet by mouth three times daily as needed for muscle spasm. gabapentin (NEURONTIN) 100 mg capsule Take 2 capsules by mouth three times daily for 30 days. levothyroxine (LEVOXYL) 125 mcg tablet Take 1 tablet by mouth once daily. Take on empty stomach. For thyroid. omeprazole (PRILOSEC) 20 mg capsule Take 1 capsule by mouth once daily. tolterodine ER (DETROL LA) 4 mg 24 hr capsule Take 1 capsule by mouth once daily. Ipzbhliywod-Yntscyawq-Jus C-Mn (GLUCOSAMINE CHONDROITIN MAXSTR) 500-400 mg cap Take 1 capsule by mouth three times daily. lisinopril-hydroCHLOROthiazide (PRINZIDE,ZESTORETIC) 10-12.5 mg per tablet Take 1 tablet by mouth once daily. COMPOUNDED PRESCRIPTION Stair lift DAILY-LUISITO tablet TAKE 1 TABLET BY MOUTH ONCE DAILY. qryzpiw-ywljafjxc-zgirxit D3 (CALCIUM 500+D) 500 mg(1,250mg) -200 unit per tablet Take 1 tablet by mouth twice daily with meals. vitamin b complex (B COMPLETE) tab Take 1 tablet by mouth once daily. hydrocortisone (ANUSOL-HC) 2.5 % rectal cream 1 application by RECTAL route twice daily. calcium acetate (PHOSLO) 667 mg capsule TAKE 1 CAPSULE BY MOUTH THREE TIMES DAILY. Magnesium 200 mg tab Take 200 mg by mouth once daily. Zinc 50 mg tab Take 1 tablet by mouth once daily. cholecalciferol (VITAMIN D3) 1,000 unit tab tablet Take 2 tablets by mouth once daily. senna-docusate (SENNA-S) 8.6-50 mg per tablet Take 1 tablet by mouth once daily. ascorbic acid(VITAMIN C 500 MG TAB) Take one(1) tablet daily. VITAMIN E 400 UNIT CAP Take one(1) tablet twice daily. pyridoxine hcl(VITAMIN B-6 100 MG TAB) Take one(1) tablet daily. CENTRUM PERFORMANCE TAB Take one(1) tablet daily. No current facility-administered medications for this visit. FAMILY HISTORY Problem Relation Age of Onset Cancer Mother ovarian Social History Tobacco Use Smoking status: Former Packs/day: 0.25 Years: 1.00 Pack years: 0.25 Types: Cigarettes Quit date: 04/06/1953 Years since quittin.7 Smokeless tobacco: Never Vaping Use Vaping Use: Never used Substance Use Topics Alcohol use: Yes Comment: occasionally Drug use: No Comment: used drugs for 3 years REVIEW OF SYSTEMS GENERAL: No weight loss, malaise or fevers/chills HEENT: Negative for frequent or significant headaches, No changes in hearing or vision. NECK: Negative for lumps, goiter, pain and significant neck swelling RESPIRATORY: Negative for cough, hemoptysis, wheezing, dyspnea or shortness of breath CARDIOVASCULAR: Negative for chest pain, leg swelling, orthopnea, or palpitations + Lower Leg Swelling GI: No nausea, vomiting, or diarrhea/constipation. No hematochezia/melena. No heartburn or reflux symptoms. : No history of dysuria, frequency or incontinence MUSCULOSKELETAL: Negative for joint pain or swelling. SKIN: Negative for lesions, rash, and itching ENDOCRINE: Negative for cold or heat intolerance, polyuria, polydipsia and goiter NEURO: No history of headaches, syncope, paralysis, seizures or tremors MOOD: Negative for depression, anxiety, or suicidal ideation. EXAM: BP 138/80 Pulse 61 Resp 20 Wt 119.7 kg (264 lb) SpO2 98% BMI 48.29 kg/m PHYSICAL EXAM: General Appearance: Well appearing, alert, in no acute distress, well-hydrated, well nourished. Skin: Skin color, texture, turgor normal, no suspicious rashes or lesions. Head: Normocephalic, no masses, lesions, tenderness or abnormalities. Eyes: Anicteric sclera. Extraocular movements are intact. . Lungs: Lungs clear to auscultation. No wheezing, rhonchi, rales. Heart: RRR without murmur, gallop, or rubs. No ectopy. Abdomen: Positive findings: distended, ascites. Extremities: Edema: +2 non pitting edema noted to lower legs bilaterally, swelling up to inner thigh. No seeping. Peripheral Pulses: Normal, Capillary refill <2secs, strong peripheral pulses, Pulses palpable. Neurologic: Gait normal. Sensation grossly intact. ASSESSMENT/PLAN: 1. Leg swelling - ICD9: 729.81, ICD10: M79.89 (primary diagnosis) - Get repeat labs completed. - Increase Lasix to 60 mg daily. - Schedule US of abdomen to evaluate distension. - Recommend follow up with cardiology. - Red flag symptoms given to patient, she verbalizes understanding when to seek emergency care. - COMP METABOLIC PANEL - NT PRO BNP 2. Shortness of breath - ICD9: 786.05, ICD10: R06.02 - Same plan as #1. 3. Abdominal distension - ICD9: 787.3, ICD10: R14.0 - US ABDOMEN COMPLETE 4. Function kidney decreased - ICD9: 593.9, ICD10: N28.9 - Instructed to stay well hydrated, and decrease caffeine beverages. - COMP METABOLIC PANEL - CONSULT NEPHROLOGY Follow up pending test results or sooner as needed. Discussed treatment plan and patient voices understanding. Patient's questions answered appropriately. Medications and potential side effects were discussed and patient voices understanding. Miryam Wells APRN.CJ This note was partially generated using Fastly voice recognition system. Note was reviewed for accuracy. There may be minor misspellings or grammar miscues with Fastly voice recognition. documented in this encounter [facility] 01-01-2022 History of Presen t illness Narrative Episode Visit Count: 8 Therapist That Will Accept/Oversee The Plan Of Care: Allison Pryor Start of Care Date: 11/22/21 Onset Date: 11/23/19 (past 2 years has been worsening) Plan of Care Certification Date: 11/22/21 Next Certification Due Date: 01/22/22 Patient Identified by Name and Date of : Yes REHABILITATION AND SPORTS THERAPY PHYSICAL THERAPY TREATMENT NOTE ASSESSMENT: Ting Vega tolerated the session with no issues. She demonstrated improvements in in transfers and gait by end of session. The patient will continue to benefit from ongoing skilled physical therapy to progress toward set goals. PLAN FOR NEXT VISIT: Continue seated stepper, MLD and HEP. SUBJECTIVE: Patient Reason for Visit: Pt reports she is stiff all over this morning. Feels maybe it's d/t the cooler, damp weather. Pain: Pain Pain Level: 0 Post Treatment Pain Post Treatment Pain Level: 0 OBJECTIVE MEASURES WITH LEVEL OF FUNCTION: Lymphedema Skin Comments:: borders of scar tissue areas L knee seem to be loosening some. Gait Gait Observation: Pt slightly slower jeanette and more effort with initial sit to stand and gait today. Improved after time on seated stepper. TREATMENT: Therapeutic Exercise: 1: SciFit seated stepper, seat 14, x 5 min Skilled Intervention: Patient was educated in proper exercise technique and purpose for exercises. Skilled judgment was provided in selection of appropriate interventions. Correct performance of therapeutic exercises was facilitated with verbal and visual cuing. Patient education as noted. Manual Therapy: 1: MLD B LE sequence utilizing B inguino-axillary anastamoses. Deferred abdominal series d/t presence of hernia and previous gastric bypass surgery. Pt completed abdominal breathing prior to starting MLD. Skilled Intervention: Manual skills to improve joint mobility, ROM, and decrease pain. Utilized anatomy knowledge of the therapist, and assessment of patient's response to intervention. Manual techniques to facilitate lymphatic dynamics and improve condition of tissue. Billing Therapeutic Exercise Treatment Minutes: 5 Manual TherapyTreatment Minutes: 40 Total Treatment Time Minutes (timed/untimed): 45 Allison Pryor PT documented in this encounter [facility] 12-26-2021 Instructions Avis Marrufo APRN.CJ - 12/26/2021 2:48 PM EDT Activity as tolerated Use Ice and/or heat as tolerated as needed documented in this encounter [facility] 12-26-2021 History of Presen t illness Narrative AMBULATORY TELEPHONE VISIT Ting Vega has consented to this telephone encounter. Persons Present: patient Chief Complaint/Reason: Injection Follow up HPI: Patient underwent her initial diagnostic Lumbar MBB BL L4/5, L5/S1 on 12/25/[address] Jackson. Patient reports >75% relief from the injection. She continues to have some mild relief even today. During this time the patient was able to tolerate and participate in their ADL's with less pain and difficulty. Reports pain has significantly improved. She is very pleased with her response Today the patient rates her pain 5/10, describes pain as intermittent, depends on her activity. Prior to the injection her pain was constant. Denies new or worsening concerns today. Ht 157.5 cm (5' 2 ) Wt 104.3 kg (230 lb) BMI 42.07 kg/m AG SPINE COMBINATION 09/19/2021 Questionnaire GREENLIGHT Completed Date 09/19/2021 Questionnaire Opiod Risk Tool Completed Date 09/19/2021 Comments 7 Data Reviewed: None today Assessment: (M47.816) Lumbar spondylosis (primary encounter diagnosis) (M79.18) Myofascial pain (G89.29) Other chronic pain Patient reports >75% of meaningful pain relief after her initial diagnostic MBB Plan: She is scheduled for repeat Lumbar MBB at the levels detailed above on 01/08/22, we will plan to proceed with lumbar RFA if patient reports positive response to repeat MBB. Follow up for repeat injection and follow up visit as scheduled. Patient is happy and agreeable with this plan. All questions were answered and patient verbalized understanding. Total Time Spent: 12 minutes Avis Marrufo APRN.RECREATION THERAPIST Review of Systems Constitutional: Negative for chills, fatigue, fever and unexpected weight change. HENT: Negative for congestion and sore throat. Eyes: Negative for visual disturbance. Respiratory: Negative for cough and shortness of breath. Cardiovascular: Negative for chest pain. Gastrointestinal: Negative for abdominal pain, constipation, nausea and vomiting. Genitourinary: Negative for decreased urine volume and difficulty urinating. Musculoskeletal: Positive for back pain. Negative for arthralgias and joint swelling. Skin: Negative for rash. Neurological: Negative for dizziness, light-headedness and headaches. Hematological: Does not bruise/bleed easily. Psychiatric/Behavioral: Negative for agitation, decreased concentration and sleep disturbance. The patient is not nervous/anxious. MRI Spine Report No resulted procedures found. PDMP website checked and validated. All prescriptions have been APPROPRIATELY filled. No suspicious activity was identified. 12/26/2021 by Avis Marrufo APRN.RECREATION THERAPIST documented in this encounter [facility] 12-25-2021 Surgical operatio n note OPERATIVE/PROCEDURE REPORT LOG ID: [id number] SURGERY/PROCEDURE DATE: 12/25/2021 INCISION/PROCEDURE START TIME: 12:44 PM INCISION CLOSE/PROCEDURE END TIME: 12:54 PM SURGEON(S)/PROCEDURALIST(S) AND CIVIL RIGHTS INVESTIGATOR(S): Surgeon(s) and Role: * Roque Jackson MD - Primary No Additional Staff SURGERY/PROCEDURE(S): Medial branch blocks bilateral L4-5 and L5-S1 under fluoroscopic guidance ANESTHESIA: Local Injectate: A total of 3cc, consisting of 3cc of 0.75% Bupivacaine An additional 5cc of 1% Lidocaine was used for local anesthesia of the soft tissue and at the targeted location. SURGERY/PROCEDURE DETAILS: Procedure: The patient was prepped and draped in a sterile fashion in the prone position after informed consent was signed and all patient questions were answered including the risks, benefits, alternative treatment options, and prognosis. The risks are as mentioned above, with the exception of Pneumothorax. To block the L5 dorsal rami, a spinal needle of the same dimensions as mentioned below was positioned at the junction of the superior articular process of the sacrum and the ala under biplanar fluoroscopic control. A 22 gauge, 5 inch spinal needle was inserted a few centimeters lateral to the pedicles of the remaining lumbar levels mentioned above and advanced ventral and medial through the muscles to the target point. Once the needle contacted periosteum at the superior-most medial edge of the transverse process, the C-arm was obliqued such that the axis of the lumbar facet joints could be fluoroscopically visualized, and the correct position of the needle confirmed. After contact with periosteum and negative aspirate for blood and CSF, correct placement without intravascular or epidural spread was confirmed by injecting 0.2cc of Omnipaque 300. A spot radiograph was obtained of this image. Next, a 0.5cc volume of the injectate noted above was placed. A needle was similarly directed to the other facet joint nerves mentioned above, with completion of the procedure at each level as described above. PRE-OP/PRE-PROCEDURE DIAGNOSIS: Lumbar spondylosis POST-OP/POST-PROCEDURE DIAGNOSIS: Same as Preop ESTIMATED BLOOD LOSS: 0 ml SPECIMENS: None IMPLANTABLE DEVICES: None DRAINS: None COMPLICATIONS: None PARTICIPATION IN SURGERY/PROCEDURE: I/primary surgeon/proceduralist performed the entire procedure. SIGNATURE: Roque Jackson MD PATIENT NAME: Ting Vega DATE: December 25, 2021 TIME: 12:57 PM documented in this encounter [facility] 12-25-2021 History and physical note UPDATED HISTORY AND PHYSICAL EXAMINATION SERVICE DATE: 12/25/2021 SERVICE TIME: 12:28 PM PHYSICAL EXAM MUST BE COMPLETED ON ADMISSION The History and Physical (completed in the past 30 days) has been reviewed and the patient has been examined. The contents accurately reflect the patient's condition with the following additions or revisions since the H&P was completed. Examination indicates no changes. LUNGS: Lungs clear to auscultation, Good diaphragmatic excursion CARDIAC: Normal S1 and S2; no rubs, murmurs, or gallops Provisional Diagnosis/Treatment Plan: Procedure(s) (LRB): BLOCK JOINT FACET LUMBAR W/ C-ARM BILATERAL (Bilateral) BLOCK JOINT FACET LUMBAR EACH ADDITIONAL VERTEBRA 2 BILAT (Bilateral) Medial branch blocks bilateral L4-5 and L5-S1 under fluoroscopic guidance This H&P can be found in the Electronic Medical Record dated 11/28/2021. SIGNATURE: Roque Jackson MD PATIENT NAME: Ting Vega DATE: December 25, 2021 TIME: 12:28 PM documented in this encounter [facility] 12-23-2021 Miscellaneous Notes Neurontin: Has refills at pharmacy. Patient has several refills at pharmacy. Felicia Gabriel MA documented in this encounter [facility] 12-16-2021 History of Presen t illness Narrative Episode Visit Count: 5 Therapist That Will Accept/Oversee The Plan Of Care: Allison Pryor Start of Care Date: 11/22/21 Onset Date: 11/23/19 (past 2 years has been worsening) Plan of Care Certification Date: 11/22/21 Next Certification Due Date: 01/22/22 Patient Identified by Name and Date of : Yes REHABILITATION AND SPORTS THERAPY PHYSICAL THERAPY TREATMENT NOTE ASSESSMENT: Ting Vega tolerated the session with no issues. She demonstrated improvements in subjective report of limb volume reduction (improved fit of clothing and footwear). The patient will continue to benefit from ongoing skilled physical therapy to progress toward set goals. PLAN FOR NEXT VISIT: Continue exercise and MLD. SUBJECTIVE: Patient Reason for Visit: Pt states she can tell her legs are reducing by her ability to wear regular shoes and when she wears her dress pants. Pain: Pain Pain Level: 0 Post Treatment Pain Post Treatment Pain Level: 0 OBJECTIVE MEASURES WITH LEVEL OF FUNCTION: Lymphedema Skin Comments:: Improved contour of lower legs and ankles. Lower Extremity Circumferential Measurements R Metatarsal Phalangeal (MTP): 24 R Arch: 25 R 5 cm from floor: 32 cm R 10 cm from floor: 28.5 cm R 20 cm from floor: 40 cm R 30 cm from floor: 48.5 cm R 40 cm from floor: 57 cm (knee) R 50 cm from floor: 70.5 cm L Metatarsal Phalangeal (MTP): 23.5 L Arch: 25 L 5 cm from floor: 32 cm L 10 cm from floor: 28.5 cm L 20 cm from floor: 41.5 cm L 30 cm from floor: 52 cm L 40 cm from floor: 48.5 cm (knee) L 50 cm from floor: 76 cm Affected Leg: Bilateral, Right Leg Larger Calculate Volume : Yes R Lower Extremity Volume: 365 L Lower Extremity Volume: 365 Difference in Volume: 0 Difference in % : 0 TREATMENT: Therapeutic Exercise: 1: Sunible seated stepper, seat 14, x 5 min (Discussed current progress and subjective report during this time.) Skilled Intervention: Patient was educated in proper exercise technique and purpose for exercises. Reviewed and educated patient on additions/changes for home exercise program. Skilled judgment was provided in selection of appropriate interventions. Correct performance of therapeutic exercises was facilitated with verbal and visual cuing. Patient education as noted. Manual Therapy: 1: MLD B LE sequence utilizing B inguino-axillary anastamoses. Deferred abdominal series d/t presence of hernia and previous gastric bypass surgery. Pt completed abdominal breathing prior to starting MLD. Skilled Intervention: Manual skills to improve joint mobility, ROM, and decrease pain. Utilized anatomy knowledge of the therapist, and assessment of patient's response to intervention. Manual techniques to facilitate lymphatic dynamics and improve condition of tissue. Billing Therapeutic Exercise Treatment Minutes: 5 Manual TherapyTreatment Minutes: 43 Total Treatment Time Minutes (timed/untimed): 48 Allison Pryor PT documented in this encounter [facility] 12-11-2021 History of Presen t illness Narrative Episode Visit Count: 4 Therapist That Will Oversee The Plan Of Care: Allison Pryor Start of Care Date: 11/22/21 Onset Date: 11/23/19 (past 2 years has been worsening) Plan of Care Certification Date: 11/22/21 Next Certification Due Date: 01/22/22 Patient Identified by Name and Date of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 Insomnia, unspecified type - ICD9: 780.52, ICD10: G47.00 (primary diagnosis) Continue current medications. 2. BENIGN HYPERTENSION(aka HTN) - ICD9: 401.1, ICD10: I10 3. Hypothyroidism, acquired - ICD9: 244.9, ICD10: E03.9 4. Bilateral leg edema - ICD9: 782.3, ICD10: R60.0 5. Female stress incontinence - ICD9: 625.6, ICD10: N39.3 6. Dyspepsia - ICD9: 536.8, ICD10: R10.13 7. Upper back pain - ICD9: 724.5, ICD10: M54.9 - XR CHEST 2V FRONTAL/LAT - GABAPENTIN 300 MG CAPSULE 8. Change in bowel function - ICD9: 787.99, ICD10: R19.8 9. SOB (shortness of breath) - ICD9: 786.05, ICD10: R06.02 Rib pain; check XR - XR CHEST 2V FRONTAL/LAT Complete XR and labs today. Will call with results then follow up. Consider CT abd as next step. May try gabapentin for pain control I agree with the Chief Complaint, ROS, and Past Histories independently gathered by the clinical field support representative and the remaining scribed note accurately describes my personal service to the patient. Medical Decision Making: Problems: Moderate: New problem with uncertain prognosis and 2+ stable chronic illnesses Data: Unique test(s) ordered: 3+ Risk: Moderate: Drug management Medical Decision Making Level: 4 - Moderate Lizy Capone MD The documentation for this note was completed by Suzette Myles Ma acting as scribe for Lizy Capone MD. July 16, 2021 9:11 AM. Suzette Myles Ma documented in this encounter [facility] documented as of this encounter (statuses as of 07/16/2021) [facility] History of Past illness Narrative* Problem Noted Date Resolved Date Screening for colon cancer 11/24/201607/12 Overview: Added automatically from request for surgery [id number] Pain in joint, lower leg 11/14/2008 010 MASS IN SUBCUTANEOUS TISSUE 07/21/200808/04 Non-healing surgical wound 03/16/200705/18 Other injury of other sites of trunk 01/16/2006 07/01/2007 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 07/12/2021 Other ventral hernia without mention of obstruction or gangrene 03/26/2004 07/01/2007 THROMBOPHLEBITIS NOS(aka DVT) 07/21/2003 PULMON EMBOLISM/INFARCT(aka EMBOLISM) 07/21/2003 08/21/2009 documented as of this encounter (statuses as of 07/18/2021) [facility] History of Past illness Narrative* Problem Noted Date Resolved Date Screening for colon cancer 11/24/201607/12 Overview: Added automatically from request for surgery [id number] Pain in joint, lower leg 11/14/2008 010 MASS IN SUBCUTANEOUS TISSUE 07/21/200808/04 Non-healing surgical wound 03/16/200705/18 Other injury of other sites of trunk 01/16/2006 07/01/2007 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 07/12/2021 Other ventral hernia without mention of obstruction or gangrene 03/26/2004 07/01/2007 THROMBOPHLEBITIS NOS(aka DVT) 07/21/2003 PULMON EMBOLISM/INFARCT(aka EMBOLISM) 07/21/2003 08/21/2009 documented as of this encounter (statuses as of 07/26/2021) [facility] History of Past illness Narrative* Problem Noted Date Resolved Date Screening for colon cancer 11/24/201607/12 Overview: Added automatically from request for surgery [id number] Pain in joint, lower leg 11/14/2008 010 MASS IN SUBCUTANEOUS TISSUE 07/21/200808/04 Non-healing surgical wound 03/16/200705/18 Other injury of other sites of trunk 01/16/2006 07/01/2007 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 07/12/2021 Other ventral hernia without mention of obstruction or gangrene 03/26/2004 07/01/2007 THROMBOPHLEBITIS NOS(aka DVT) 07/21/2003 PULMON EMBOLISM/INFARCT(aka EMBOLISM) 07/21/2003 08/21/2009 documented as of this encounter (statuses as of 07/26/2021) [facility] History of Past illness Narrative* Problem Noted Date Resolved Date Screening for colon cancer 11/24/201607/12 Overview: Added automatically from request for surgery [id number] Pain in joint, lower leg 11/14/2008 010 MASS IN SUBCUTANEOUS TISSUE 07/21/200808/04 Non-healing surgical wound 03/16/200705/18 Other injury of other sites of trunk 01/16/2006 07/01/2007 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 07/12/2021 Other ventral hernia without mention of obstruction or gangrene 03/26/2004 07/01/2007 THROMBOPHLEBITIS NOS(aka DVT) 07/21/2003 PULMON EMBOLISM/INFARCT(aka EMBOLISM) 07/21/2003 08/21/2009 documented as of this encounter (statuses as of 08/08/2021) [facility] History of Past illness Narrative* Problem Noted Date Resolved Date Screening for colon cancer 11/24/201607/12 Overview: Added automatically from request for surgery [id number] Pain in joint, lower leg 11/14/2008 010 MASS IN SUBCUTANEOUS TISSUE 07/21/200808/04 Non-healing surgical wound 03/16/200705/18 Other injury of other sites of trunk 01/16/2006 07/01/2007 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 07/12/2021 Other ventral hernia without mention of obstruction or gangrene 03/26/2004 07/01/2007 THROMBOPHLEBITIS NOS(aka DVT) 07/21/2003 PULMON EMBOLISM/INFARCT(aka EMBOLISM) 07/21/2003 08/21/2009 documented as of this encounter (statuses as of 09/12/2021) [facility] History of Past illness Narrative* Problem Noted Date Resolved Date Screening for colon cancer 11/24/201607/12 Overview: Added automatically from request for surgery [id number] Pain in joint, lower leg 11/14/2008 010 MASS IN SUBCUTANEOUS TISSUE 07/21/200808/04 Non-healing surgical wound 03/16/200705/18 Other injury of other sites of trunk 01/16/2006 07/01/2007 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 07/12/2021 Other ventral hernia without mention of obstruction or gangrene 03/26/2004 07/01/2007 THROMBOPHLEBITIS NOS(aka DVT) 07/21/2003 PULMON EMBOLISM/INFARCT(aka EMBOLISM) 07/21/2003 08/21/2009 documented as of this encounter (statuses as of 09/19/2021) [facility] History of Past illness Narrative* Problem Noted Date Resolved Date Screening for colon cancer 11/24/201607/12 Overview: Added automatically from request for surgery [id number] Pain in joint, lower leg 11/14/2008 010 MASS IN SUBCUTANEOUS TISSUE 07/21/200808/04 Non-healing surgical wound 03/16/200705/18 Other injury of other sites of trunk 01/16/2006 07/01/2007 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 07/12/2021 Other ventral hernia without mention of obstruction or gangrene 03/26/2004 07/01/2007 THROMBOPHLEBITIS NOS(aka DVT) 07/21/2003 PULMON EMBOLISM/INFARCT(aka EMBOLISM) 07/21/2003 08/21/2009 documented as of this encounter (statuses as of 09/19/2021) [facility] History of Past illness Narrative* Problem Noted Date Resolved Date Screening for colon cancer 11/24/201607/12 Overview: Added automatically from request for surgery [id number] Pain in joint, lower leg 11/14/2008 010 MASS IN SUBCUTANEOUS TISSUE 07/21/200808/04 Non-healing surgical wound 03/16/200705/18 Other injury of other sites of trunk 01/16/2006 07/01/2007 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 07/12/2021 Other ventral hernia without mention of obstruction or gangrene 03/26/2004 07/01/2007 THROMBOPHLEBITIS NOS(aka DVT) 07/21/2003 PULMON EMBOLISM/INFARCT(aka EMBOLISM) 07/21/2003 08/21/2009 documented as of this encounter (statuses as of 09/21/2021) [facility] History of Past illness Narrative* Problem Noted Date Resolved Date Screening for colon cancer 11/24/201607/12 Overview: Added automatically from request for surgery [id number] Pain in joint, lower leg 11/14/2008 010 MASS IN SUBCUTANEOUS TISSUE 07/21/200808/04 Non-healing surgical wound 03/16/200705/18 Other injury of other sites of trunk 01/16/2006 07/01/2007 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 07/12/2021 Other ventral hernia without mention of obstruction or gangrene 03/26/2004 07/01/2007 THROMBOPHLEBITIS NOS(aka DVT) 07/21/2003 PULMON EMBOLISM/INFARCT(aka EMBOLISM) 07/21/2003 08/21/2009 documented as of this encounter (statuses as of 10/01/2021) [facility] History of Past illness Narrative* Problem Noted Date Resolved Date Screening for colon cancer 11/24/201607/12 Overview: Added automatically from request for surgery [id number] Pain in joint, lower leg 11/14/2008 010 MASS IN SUBCUTANEOUS TISSUE 07/21/200808/04 Non-healing surgical wound 03/16/200705/18 Other injury of other sites of trunk 01/16/2006 07/01/2007 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 07/12/2021 Other ventral hernia without mention of obstruction or gangrene 03/26/2004 07/01/2007 THROMBOPHLEBITIS NOS(aka DVT) 07/21/2003 PULMON EMBOLISM/INFARCT(aka EMBOLISM) 07/21/2003 08/21/2009 documented as of this encounter (statuses as of 10/21/2021) [facility] History of Past illness Narrative* Problem Noted Date Resolved Date Screening for colon cancer 11/24/201607/12 Overview: Added automatically from request for surgery [id number] Pain in joint, lower leg 11/14/2008 010 MASS IN SUBCUTANEOUS TISSUE 07/21/200808/04 Non-healing surgical wound 03/16/200705/18 Other injury of other sites of trunk 01/16/2006 07/01/2007 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 07/12/2021 Other ventral hernia without mention of obstruction or gangrene 03/26/2004 07/01/2007 THROMBOPHLEBITIS NOS(aka DVT) 07/21/2003 PULMON EMBOLISM/INFARCT(aka EMBOLISM) 07/21/2003 08/21/2009 documented as of this encounter (statuses as of 10/22/2021) [facility] History of Past illness Narrative* Problem Noted Date Resolved Date Screening for colon cancer 11/24/201607/12 Overview: Added automatically from request for surgery [id number] Pain in joint, lower leg 11/14/2008 010 MASS IN SUBCUTANEOUS TISSUE 07/21/200808/04 Non-healing surgical wound 03/16/200705/18 Other injury of other sites of trunk 01/16/2006 07/01/2007 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 07/12/2021 Other ventral hernia without mention of obstruction or gangrene 03/26/2004 07/01/2007 THROMBOPHLEBITIS NOS(aka DVT) 07/21/2003 PULMON EMBOLISM/INFARCT(aka EMBOLISM) 07/21/2003 08/21/2009 documented as of this encounter (statuses as of 10/22/2021) [facility] History of Past illness Narrative* Problem Noted Date Resolved Date Screening for colon cancer 11/24/201607/12 Overview: Added automatically from request for surgery [id number] Pain in joint, lower leg 11/14/2008 010 MASS IN SUBCUTANEOUS TISSUE 07/21/200808/04 Non-healing surgical wound 03/16/200705/18 Other injury of other sites of trunk 01/16/2006 07/01/2007 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 07/12/2021 Other ventral hernia without mention of obstruction or gangrene 03/26/2004 07/01/2007 THROMBOPHLEBITIS NOS(aka DVT) 07/21/2003 PULMON EMBOLISM/INFARCT(aka EMBOLISM) 07/21/2003 08/21/2009 documented as of this encounter (statuses as of 10/24/2021) [facility] History of Past illness Narrative* Problem Noted Date Resolved Date Screening for colon cancer 11/24/201607/12 Overview: Added automatically from request for surgery [id number] Pain in joint, lower leg 11/14/2008 010 MASS IN SUBCUTANEOUS TISSUE 07/21/200808/04 Non-healing surgical wound 03/16/200705/18 Other injury of other sites of trunk 01/16/2006 07/01/2007 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 07/12/2021 Other ventral hernia without mention of obstruction or gangrene 03/26/2004 07/01/2007 THROMBOPHLEBITIS NOS(aka DVT) 07/21/2003 PULMON EMBOLISM/INFARCT(aka EMBOLISM) 07/21/2003 08/21/2009 documented as of this encounter (statuses as of 11/05/2021) [facility] History of Past illness Narrative* Problem Noted Date Resolved Date Screening for colon cancer 11/24/201607/12 Overview: Added automatically from request for surgery [id number] Pain in joint, lower leg 11/14/2008 010 MASS IN SUBCUTANEOUS TISSUE 07/21/200808/04 Non-healing surgical wound 03/16/200705/18 Other injury of other sites of trunk 01/16/2006 07/01/2007 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 07/12/2021 Other ventral hernia without mention of obstruction or gangrene 03/26/2004 07/01/2007 THROMBOPHLEBITIS NOS(aka DVT) 07/21/2003 PULMON EMBOLISM/INFARCT(aka EMBOLISM) 07/21/2003 08/21/2009 documented as of this encounter (statuses as of 11/12/2021) [facility] History of Past illness Narrative* Problem Noted Date Resolved Date Screening for colon cancer 11/24/201607/12 Overview: Added automatically from request for surgery [id number] Pain in joint, lower leg 11/14/2008 010 MASS IN SUBCUTANEOUS TISSUE 07/21/200808/04 Non-healing surgical wound 03/16/200705/18 Other injury of other sites of trunk 01/16/2006 07/01/2007 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 07/12/2021 Other ventral hernia without mention of obstruction or gangrene 03/26/2004 07/01/2007 THROMBOPHLEBITIS NOS(aka DVT) 07/21/2003 PULMON EMBOLISM/INFARCT(aka EMBOLISM) 07/21/2003 08/21/2009 documented as of this encounter (statuses as of 11/13/2021) [facility] History of Past illness Narrative* Problem Noted Date Resolved Date Screening for colon cancer 11/24/201607/12 Overview: Added automatically from request for surgery [id number] Pain in joint, lower leg 11/14/2008 010 MASS IN SUBCUTANEOUS TISSUE 07/21/200808/04 Non-healing surgical wound 03/16/200705/18 Other injury of other sites of trunk 01/16/2006 07/01/2007 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 07/12/2021 Other ventral hernia without mention of obstruction or gangrene 03/26/2004 07/01/2007 THROMBOPHLEBITIS NOS(aka DVT) 07/21/2003 PULMON EMBOLISM/INFARCT(aka EMBOLISM) 07/21/2003 08/21/2009 documented as of this encounter (statuses as of 11/22/2021) [facility] History of Past illness Narrative* Problem Noted Date Resolved Date Screening for colon cancer 11/24/201607/12 Overview: Added automatically from request for surgery [id number] Pain in joint, lower leg 11/14/2008 010 MASS IN SUBCUTANEOUS TISSUE 07/21/200808/04 Non-healing surgical wound 03/16/200705/18 Other injury of other sites of trunk 01/16/2006 07/01/2007 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 07/12/2021 Other ventral hernia without mention of obstruction or gangrene 03/26/2004 07/01/2007 THROMBOPHLEBITIS NOS(aka DVT) 07/21/2003 PULMON EMBOLISM/INFARCT(aka EMBOLISM) 07/21/2003 08/21/2009 documented as of this encounter (statuses as of 11/26/2021) [facility] History of Past illness Narrative* Problem Noted Date Resolved Date Screening for colon cancer 11/24/201607/12 Overview: Added automatically from request for surgery [id number] Pain in joint, lower leg 11/14/2008 010 MASS IN SUBCUTANEOUS TISSUE 07/21/200808/04 Non-healing surgical wound 03/16/200705/18 Other injury of other sites of trunk 01/16/2006 07/01/2007 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 07/12/2021 Other ventral hernia without mention of obstruction or gangrene 03/26/2004 07/01/2007 THROMBOPHLEBITIS NOS(aka DVT) 07/21/2003 PULMON EMBOLISM/INFARCT(aka EMBOLISM) 07/21/2003 08/21/2009 documented as of this encounter (statuses as of 12/02/2021) [facility] History of Past illness Narrative* Problem Noted Date Resolved Date Screening for colon cancer 11/24/201607/12 Overview: Added automatically from request for surgery [id number] Pain in joint, lower leg 11/14/2008 010 MASS IN SUBCUTANEOUS TISSUE 07/21/200808/04 Non-healing surgical wound 03/16/200705/18 Other injury of other sites of trunk 01/16/2006 07/01/2007 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 07/12/2021 Other ventral hernia without mention of obstruction or gangrene 03/26/2004 07/01/2007 THROMBOPHLEBITIS NOS(aka DVT) 07/21/2003 PULMON EMBOLISM/INFARCT(aka EMBOLISM) 07/21/2003 08/21/2009 documented as of this encounter (statuses as of 12/03/2021) [facility] History of Past illness Narrative* Problem Noted Date Resolved Date Screening for colon cancer 11/24/201607/12 Overview: Added automatically from request for surgery [id number] Pain in joint, lower leg 11/14/2008 010 MASS IN SUBCUTANEOUS TISSUE 07/21/200808/04 Non-healing surgical wound 03/16/200705/18 Other injury of other sites of trunk 01/16/2006 07/01/2007 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 07/12/2021 Other ventral hernia without mention of obstruction or gangrene 03/26/2004 07/01/2007 THROMBOPHLEBITIS NOS(aka DVT) 07/21/2003 PULMON EMBOLISM/INFARCT(aka EMBOLISM) 07/21/2003 08/21/2009 documented as of this encounter (statuses as of 12/11/2021) [facility] History of Past illness Narrative* Problem Noted Date Resolved Date Screening for colon cancer 11/24/201607/12 Overview: Added automatically from request for surgery [id number] Pain in joint, lower leg 11/14/2008 010 MASS IN SUBCUTANEOUS TISSUE 07/21/200808/04 Non-healing surgical wound 03/16/200705/18 Other injury of other sites of trunk 01/16/2006 07/01/2007 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 07/12/2021 Other ventral hernia without mention of obstruction or gangrene 03/26/2004 07/01/2007 THROMBOPHLEBITIS NOS(aka DVT) 07/21/2003 PULMON EMBOLISM/INFARCT(aka EMBOLISM) 07/21/2003 08/21/2009 documented as of this encounter (statuses as of 12/16/2021) [facility] History of Past illness Narrative* Problem Noted Date Resolved Date Screening for colon cancer 11/24/201607/12 Overview: Added automatically from request for surgery [id number] Pain in joint, lower leg 11/14/2008 010 MASS IN SUBCUTANEOUS TISSUE 07/21/200808/04 Non-healing surgical wound 03/16/200705/18 Other injury of other sites of trunk 01/16/2006 07/01/2007 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 07/12/2021 Other ventral hernia without mention of obstruction or gangrene 03/26/2004 07/01/2007 THROMBOPHLEBITIS NOS(aka DVT) 07/21/2003 PULMON EMBOLISM/INFARCT(aka EMBOLISM) 07/21/2003 08/21/2009 documented as of this encounter (statuses as of 12/23/2021) [facility] History of Past illness Narrative* Problem Noted Date Resolved Date Screening for colon cancer 11/24/201607/12 Overview: Added automatically from request for surgery [id number] Pain in joint, lower leg 11/14/2008 010 MASS IN SUBCUTANEOUS TISSUE 07/21/200808/04 Non-healing surgical wound 03/16/200705/18 Other injury of other sites of trunk 01/16/2006 07/01/2007 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 07/12/2021 Other ventral hernia without mention of obstruction or gangrene 03/26/2004 07/01/2007 THROMBOPHLEBITIS NOS(aka DVT) 07/21/2003 PULMON EMBOLISM/INFARCT(aka EMBOLISM) 07/21/2003 08/21/2009 documented as of this encounter (statuses as of 12/26/2021) [facility] History of Past illness Narrative* Problem Noted Date Resolved Date Screening for colon cancer 11/24/201607/12 Overview: Added automatically from request for surgery [id number] Pain in joint, lower leg 11/14/2008 010 MASS IN SUBCUTANEOUS TISSUE 07/21/200808/04 Non-healing surgical wound 03/16/200705/18 Other injury of other sites of trunk 01/16/2006 07/01/2007 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 07/12/2021 Other ventral hernia without mention of obstruction or gangrene 03/26/2004 07/01/2007 THROMBOPHLEBITIS NOS(aka DVT) 07/21/2003 PULMON EMBOLISM/INFARCT(aka EMBOLISM) 07/21/2003 08/21/2009 documented as of this encounter (statuses as of 12/26/2021) [facility] History of Past illness Narrative* Problem Noted Date Resolved Date Screening for colon cancer 11/24/201607/12 Overview: Added automatically from request for surgery [id number] Pain in joint, lower leg 11/14/2008 010 MASS IN SUBCUTANEOUS TISSUE 07/21/200808/04 Non-healing surgical wound 03/16/200705/18 Other injury of other sites of trunk 01/16/2006 07/01/2007 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 07/12/2021 Other ventral hernia without mention of obstruction or gangrene 03/26/2004 07/01/2007 THROMBOPHLEBITIS NOS(aka DVT) 07/21/2003 PULMON EMBOLISM/INFARCT(aka EMBOLISM) 07/21/2003 08/21/2009 documented as of this encounter (statuses as of 01/01/2022) [facility] History of Past illness Narrative* Problem Noted Date Resolved Date Screening for colon cancer 11/24/201607/12 Overview: Added automatically from request for surgery [id number] Pain in joint, lower leg 11/14/2008 010 MASS IN SUBCUTANEOUS TISSUE 07/21/200808/04 Non-healing surgical wound 03/16/200705/18 Other injury of other sites of trunk 01/16/2006 07/01/2007 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 07/12/2021 Other ventral hernia without mention of obstruction or gangrene 03/26/2004 07/01/2007 THROMBOPHLEBITIS NOS(aka DVT) 07/21/2003 PULMON EMBOLISM/INFARCT(aka EMBOLISM) 07/21/2003 08/21/2009 documented as of this encounter (statuses as of 01/02/2022) [facility] History of Past illness Narrative* Problem Noted Date Resolved Date Screening for colon cancer 11/24/201607/12 Overview: Added automatically from request for surgery [id number] Pain in joint, lower leg 11/14/2008 010 MASS IN SUBCUTANEOUS TISSUE 07/21/200808/04 Non-healing surgical wound 03/16/200705/18 Other injury of other sites of trunk 01/16/2006 07/01/2007 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 07/12/2021 Other ventral hernia without mention of obstruction or gangrene 03/26/2004 07/01/2007 THROMBOPHLEBITIS NOS(aka DVT) 07/21/2003 PULMON EMBOLISM/INFARCT(aka EMBOLISM) 07/21/2003 08/21/2009 documented as of this encounter (statuses as of 01/04/2022) [facility] History of Past illness Narrative* Problem Noted Date Resolved Date Screening for colon cancer 11/24/201607/12 Overview: Added automatically from request for surgery [id number] Pain in joint, lower leg 11/14/2008 010 MASS IN SUBCUTANEOUS TISSUE 07/21/200808/04 Non-healing surgical wound 03/16/200705/18 Other injury of other sites of trunk 01/16/2006 07/01/2007 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 07/12/2021 Other ventral hernia without mention of obstruction or gangrene 03/26/2004 07/01/2007 THROMBOPHLEBITIS NOS(aka DVT) 07/21/2003 PULMON EMBOLISM/INFARCT(aka EMBOLISM) 07/21/2003 08/21/2009 documented as of this encounter (statuses as of 01/07/2022) [facility] History of Past illness Narrative* Problem Noted Date Resolved Date Screening for colon cancer 11/24/201607/12 Overview: Added automatically from request for surgery [id number] Pain in joint, lower leg 11/14/2008 010 MASS IN SUBCUTANEOUS TISSUE 07/21/200808/04 Non-healing surgical wound 03/16/200705/18 Other injury of other sites of trunk 01/16/2006 07/01/2007 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 07/12/2021 Other ventral hernia without mention of obstruction or gangrene 03/26/2004 07/01/2007 THROMBOPHLEBITIS NOS(aka DVT) 07/21/2003 PULMON EMBOLISM/INFARCT(aka EMBOLISM) 07/21/2003 08/21/2009 documented as of this encounter (statuses as of 01/07/2022) [facility] History of Past illness Narrative* Problem Noted Date Resolved Date Screening for colon cancer 11/24/201607/12 Overview: Added automatically from request for surgery [id number] Pain in joint, lower leg 11/14/2008 010 MASS IN SUBCUTANEOUS TISSUE 07/21/200808/04 Non-healing surgical wound 03/16/200705/18 Other injury of other sites of trunk 01/16/2006 07/01/2007 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 07/12/2021 Other ventral hernia without mention of obstruction or gangrene 03/26/2004 07/01/2007 THROMBOPHLEBITIS NOS(aka DVT) 07/21/2003 PULMON EMBOLISM/INFARCT(aka EMBOLISM) 07/21/2003 08/21/2009 documented as of this encounter (statuses as of 01/09/2022) [facility] History of Past illness Narrative* Problem Noted Date Resolved Date Screening for colon cancer 11/24/201607/12 Overview: Added automatically from request for surgery [id number] Pain in joint, lower leg 11/14/2008 010 MASS IN SUBCUTANEOUS TISSUE 07/21/200808/04 Non-healing surgical wound 03/16/200705/18 Other injury of other sites of trunk 01/16/2006 07/01/2007 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 07/12/2021 Other ventral hernia without mention of obstruction or gangrene 03/26/2004 07/01/2007 THROMBOPHLEBITIS NOS(aka DVT) 07/21/2003 PULMON EMBOLISM/INFARCT(aka EMBOLISM) 07/21/2003 08/21/2009 documented as of this encounter (statuses as of 01/09/2022) [facility] History of Past illness Narrative* Problem Noted Date Resolved Date Screening for colon cancer 11/24/201607/12 Overview: Added automatically from request for surgery [id number] Pain in joint, lower leg 11/14/2008 010 MASS IN SUBCUTANEOUS TISSUE 07/21/200808/04 Non-healing surgical wound 03/16/200705/18 Other injury of other sites of trunk 01/16/2006 07/01/2007 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 07/12/2021 Other ventral hernia without mention of obstruction or gangrene 03/26/2004 07/01/2007 THROMBOPHLEBITIS NOS(aka DVT) 07/21/2003 PULMON EMBOLISM/INFARCT(aka EMBOLISM) 07/21/2003 08/21/2009 documented as of this encounter (statuses as of 01/14/2022) [facility] History of Past illness Narrative* Problem Noted Date Resolved Date Screening for colon cancer 11/24/201607/12 Overview: Added automatically from request for surgery [id number] Pain in joint, lower leg 11/14/2008 010 MASS IN SUBCUTANEOUS TISSUE 07/21/200808/04 Non-healing surgical wound 03/16/200705/18 Other injury of other sites of trunk 01/16/2006 07/01/2007 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 07/12/2021 Other ventral hernia without mention of obstruction or gangrene 03/26/2004 07/01/2007 THROMBOPHLEBITIS NOS(aka DVT) 07/21/2003 PULMON EMBOLISM/INFARCT(aka EMBOLISM) 07/21/2003 08/21/2009 documented as of this encounter (statuses as of 01/20/2022) [facility] History of Past illness Narrative* Problem Noted Date Resolved Date Screening for colon cancer 11/24/201607/12 Overview: Added automatically from request for surgery [id number] Pain in joint, lower leg 11/14/2008 010 MASS IN SUBCUTANEOUS TISSUE 07/21/200808/04 Non-healing surgical wound 03/16/200705/18 Other injury of other sites of trunk 01/16/2006 07/01/2007 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 07/12/2021 Other ventral hernia without mention of obstruction or gangrene 03/26/2004 07/01/2007 THROMBOPHLEBITIS NOS(aka DVT) 07/21/2003 PULMON EMBOLISM/INFARCT(aka EMBOLISM) 07/21/2003 08/21/2009 documented as of this encounter (statuses as of 01/30/2022) [facility] History of Past illness Narrative* Problem Noted Date Resolved Date Screening for colon cancer 11/24/201607/12 Overview: Added automatically from request for surgery [id number] Pain in joint, lower leg 11/14/2008 010 MASS IN SUBCUTANEOUS TISSUE 07/21/200808/04 Non-healing surgical wound 03/16/200705/18 Other injury of other sites of trunk 01/16/2006 07/01/2007 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 07/12/2021 Other ventral hernia without mention of obstruction or gangrene 03/26/2004 07/01/2007 THROMBOPHLEBITIS NOS(aka DVT) 07/21/2003 PULMON EMBOLISM/INFARCT(aka EMBOLISM) 07/21/2003 08/21/2009 documented as of this encounter (statuses as of 01/30/2022) [facility] History of Past illness Narrative* Problem Noted Date Resolved Date Screening for colon cancer 11/24/201607/12 Overview: Added automatically from request for surgery [id number] Pain in joint, lower leg 11/14/2008 010 MASS IN SUBCUTANEOUS TISSUE 07/21/200808/04 Non-healing surgical wound 03/16/200705/18 Other injury of other sites of trunk 01/16/2006 07/01/2007 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 07/12/2021 Other ventral hernia without mention of obstruction or gangrene 03/26/2004 07/01/2007 THROMBOPHLEBITIS NOS(aka DVT) 07/21/2003 PULMON EMBOLISM/INFARCT(aka EMBOLISM) 07/21/2003 08/21/2009 documented as of this encounter (statuses as of 02/14/2022) [facility] History of Past illness Narrative* Problem Noted Date Resolved Date Screening for colon cancer 11/24/201607/12 Overview: Added automatically from request for surgery [id number] Pain in joint, lower leg 11/14/2008 010 MASS IN SUBCUTANEOUS TISSUE 07/21/200808/04 Non-healing surgical wound 03/16/200705/18 Other injury of other sites of trunk 01/16/2006 07/01/2007 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 07/12/2021 Other ventral hernia without mention of obstruction or gangrene 03/26/2004 07/01/2007 THROMBOPHLEBITIS NOS(aka DVT) 07/21/2003 PULMON EMBOLISM/INFARCT(aka EMBOLISM) 07/21/2003 08/21/2009 documented as of this encounter (statuses as of 02/18/2022) [facility] History of Past illness Narrative* Problem Noted Date Resolved Date Screening for colon cancer 11/24/201607/12 Overview: Added automatically from request for surgery [id number] Pain in joint, lower leg 11/14/2008 010 MASS IN SUBCUTANEOUS TISSUE 07/21/200808/04 Non-healing surgical wound 03/16/200705/18 Other injury of other sites of trunk 01/16/2006 07/01/2007 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 07/12/2021 Other ventral hernia without mention of obstruction or gangrene 03/26/2004 07/01/2007 THROMBOPHLEBITIS NOS(aka DVT) 07/21/2003 PULMON EMBOLISM/INFARCT(aka EMBOLISM) 07/21/2003 08/21/2009 documented as of this encounter (statuses as of 03/04/2022) [facility] History of Past illness Narrative* Problem Noted Date Resolved Date Screening for colon cancer 11/24/201607/12 Overview: Added automatically from request for surgery [id number] Pain in joint, lower leg 11/14/2008 010 MASS IN SUBCUTANEOUS TISSUE 07/21/200808/04 Non-healing surgical wound 03/16/200705/18 Other injury of other sites of trunk 01/16/2006 07/01/2007 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 07/12/2021 Other ventral hernia without mention of obstruction or gangrene 03/26/2004 07/01/2007 THROMBOPHLEBITIS NOS(aka DVT) 07/21/2003 PULMON EMBOLISM/INFARCT(aka EMBOLISM) 07/21/2003 08/21/2009 documented as of this encounter (statuses as of 04/16/2022) [facility] History of Past illness Narrative* Problem Noted Date Resolved Date Screening for colon cancer 11/24/201607/12 Overview: Added automatically from request for surgery [id number] Pain in joint, lower leg 11/14/2008 010 MASS IN SUBCUTANEOUS TISSUE 07/21/200808/04 Non-healing surgical wound 03/16/200705/18 Other injury of other sites of trunk 01/16/2006 07/01/2007 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 07/12/2021 Other ventral hernia without mention of obstruction or gangrene 03/26/2004 07/01/2007 THROMBOPHLEBITIS NOS(aka DVT) 07/21/2003 PULMON EMBOLISM/INFARCT(aka EMBOLISM) 07/21/2003 08/21/2009 documented as of this encounter (statuses as of 04/17/2022) [facility] History of Past illness Narrative* Problem Noted Date Resolved Date Screening for colon cancer 11/24/201607/12 Overview: Added automatically from request for surgery [id number] Pain in joint, lower leg 11/14/2008 010 MASS IN SUBCUTANEOUS TISSUE 07/21/200808/04 Non-healing surgical wound 03/16/200705/18 Other injury of other sites of trunk 01/16/2006 07/01/2007 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 07/12/2021 Other ventral hernia without mention of obstruction or gangrene 03/26/2004 07/01/2007 THROMBOPHLEBITIS NOS(aka DVT) 07/21/2003 PULMON EMBOLISM/INFARCT(aka EMBOLISM) 07/21/2003 08/21/2009 documented as of this encounter (statuses as of 04/29/2022) [facility] History of Past illness Narrative* Problem Noted Date Resolved Date Screening for colon cancer 11/24/201607/12 Overview: Added automatically from request for surgery [id number] Pain in joint, lower leg 11/14/2008 010 MASS IN SUBCUTANEOUS TISSUE 07/21/200808/04 Non-healing surgical wound 03/16/200705/18 Other injury of other sites of trunk 01/16/2006 07/01/2007 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 07/12/2021 Other ventral hernia without mention of obstruction or gangrene 03/26/2004 07/01/2007 THROMBOPHLEBITIS NOS(aka DVT) 07/21/2003 PULMON EMBOLISM/INFARCT(aka EMBOLISM) 07/21/2003 08/21/2009 documented as of this encounter (statuses as of 04/30/2022) [facility] History of Past illness Narrative* Problem Noted Date Resolved Date Screening for colon cancer 11/24/201607/12 Overview: Added automatically from request for surgery [id number] Pain in joint, lower leg 11/14/2008 010 MASS IN SUBCUTANEOUS TISSUE 07/21/200808/04 Non-healing surgical wound 03/16/200705/18 Other injury of other sites of trunk 01/16/2006 07/01/2007 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 07/12/2021 Other ventral hernia without mention of obstruction or gangrene 03/26/2004 07/01/2007 THROMBOPHLEBITIS NOS(aka DVT) 07/21/2003 PULMON EMBOLISM/INFARCT(aka EMBOLISM) 07/21/2003 08/21/2009 documented as of this encounter (statuses as of 05/06/2022) [facility] History of Past illness Narrative* Problem Noted Date Resolved Date Screening for colon cancer 11/24/201607/12 Overview: Added automatically from request for surgery [id number] Pain in joint, lower leg 11/14/2008 010 MASS IN SUBCUTANEOUS TISSUE 07/21/200808/04 Non-healing surgical wound 03/16/200705/18 Other injury of other sites of trunk 01/16/2006 07/01/2007 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 07/12/2021 Other ventral hernia without mention of obstruction or gangrene 03/26/2004 07/01/2007 THROMBOPHLEBITIS NOS(aka DVT) 07/21/2003 PULMON EMBOLISM/INFARCT(aka EMBOLISM) 07/21/2003 08/21/2009 documented as of this encounter (statuses as of 05/15/2022) [facility] History of Past illness Narrative* Problem Noted Date Resolved Date Screening for colon cancer 11/24/201607/12 Overview: Added automatically from request for surgery [id number] Pain in joint, lower leg 11/14/2008 010 MASS IN SUBCUTANEOUS TISSUE 07/21/200808/04 Non-healing surgical wound 03/16/200705/18 Other injury of other sites of trunk 01/16/2006 07/01/2007 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 07/12/2021 Other ventral hernia without mention of obstruction or gangrene 03/26/2004 07/01/2007 THROMBOPHLEBITIS NOS(aka DVT) 07/21/2003 PULMON EMBOLISM/INFARCT(aka EMBOLISM) 07/21/2003 08/21/2009 documented as of this encounter (statuses as of 05/16/2022) [facility] History of Past illness Narrative* Problem Noted Date Resolved Date Screening for colon cancer 11/24/201607/12 Overview: Added automatically from request for surgery [id number] Pain in joint, lower leg 11/14/2008 010 MASS IN SUBCUTANEOUS TISSUE 07/21/200808/04 Non-healing surgical wound 03/16/200705/18 Other injury of other sites of trunk 01/16/2006 07/01/2007 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 07/12/2021 Other ventral hernia without mention of obstruction or gangrene 03/26/2004 07/01/2007 THROMBOPHLEBITIS NOS(aka DVT) 07/21/2003 PULMON EMBOLISM/INFARCT(aka EMBOLISM) 07/21/2003 08/21/2009 documented as of this encounter (statuses as of 05/19/2022) [facility] History of Past illness Narrative* Problem Noted Date Resolved Date Screening for colon cancer 11/24/201607/12 Overview: Added automatically from request for surgery [id number] Pain in joint, lower leg 11/14/2008 010 MASS IN SUBCUTANEOUS TISSUE 07/21/200808/04 Non-healing surgical wound 03/16/200705/18 Other injury of other sites of trunk 01/16/2006 07/01/2007 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 07/12/2021 Other ventral hernia without mention of obstruction or gangrene 03/26/2004 07/01/2007 THROMBOPHLEBITIS NOS(aka DVT) 07/21/2003 PULMON EMBOLISM/INFARCT(aka EMBOLISM) 07/21/2003 08/21/2009 documented as of this encounter (statuses as of 05/30/2022) [facility] History of Past illness Narrative* Problem Noted Date Resolved Date Screening for colon cancer 11/24/201607/12 Overview: Added automatically from request for surgery [id number] Pain in joint, lower leg 11/14/2008 010 MASS IN SUBCUTANEOUS TISSUE 07/21/200808/04 Non-healing surgical wound 03/16/200705/18 Other injury of other sites of trunk 01/16/2006 07/01/2007 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 07/12/2021 Other ventral hernia without mention of obstruction or gangrene 03/26/2004 07/01/2007 THROMBOPHLEBITIS NOS(aka DVT) 07/21/2003 PULMON EMBOLISM/INFARCT(aka EMBOLISM) 07/21/2003 08/21/2009 documented as of this encounter (statuses as of 06/04/2022) [facility] History of Past illness Narrative* Problem Noted Date Resolved Date Screening for colon cancer 11/24/201607/12 Overview: Added automatically from request for surgery [id number] Pain in joint, lower leg 11/14/2008 010 MASS IN SUBCUTANEOUS TISSUE 07/21/200808/04 Non-healing surgical wound 03/16/200705/18 Other injury of other sites of trunk 01/16/2006 07/01/2007 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 07/12/2021 Other ventral hernia without mention of obstruction or gangrene 03/26/2004 07/01/2007 THROMBOPHLEBITIS NOS(aka DVT) 07/21/2003 PULMON EMBOLISM/INFARCT(aka EMBOLISM) 07/21/2003 08/21/2009 documented as of this encounter (statuses as of 06/26/2022) [facility] History of Past illness Narrative* Problem Noted Date Resolved Date Screening for colon cancer 11/24/201607/12 Overview: Added automatically from request for surgery [id number] Pain in joint, lower leg 11/14/2008 010 MASS IN SUBCUTANEOUS TISSUE 07/21/200808/04 Non-healing surgical wound 03/16/200705/18 Other injury of other sites of trunk 01/16/2006 07/01/2007 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 07/12/2021 Other ventral hernia without mention of obstruction or gangrene 03/26/2004 07/01/2007 THROMBOPHLEBITIS NOS(aka DVT) 07/21/2003 PULMON EMBOLISM/INFARCT(aka EMBOLISM) 07/21/2003 08/21/2009 documented as of this encounter (statuses as of 06/27/2022) [facility] History of Past illness Narrative* Problem Noted Date Resolved Date Screening for colon cancer 11/24/201607/12 Overview: Added automatically from request for surgery [id number] Pain in joint, lower leg 11/14/2008 010 MASS IN SUBCUTANEOUS TISSUE 07/21/200808/04 Non-healing surgical wound 03/16/200705/18 Other injury of other sites of trunk 01/16/2006 07/01/2007 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 07/12/2021 Other ventral hernia without mention of obstruction or gangrene 03/26/2004 07/01/2007 THROMBOPHLEBITIS NOS(aka DVT) 07/21/2003 PULMON EMBOLISM/INFARCT(aka EMBOLISM) 07/21/2003 08/21/2009 documented as of this encounter (statuses as of 06/30/2022) [facility] History of Past illness Narrative* Problem Noted Date Resolved Date Screening for colon cancer 11/24/201607/12 Overview: Added automatically from request for surgery [id number] Pain in joint, lower leg 11/14/2008 010 MASS IN SUBCUTANEOUS TISSUE 07/21/200808/04 Non-healing surgical wound 03/16/200705/18 Other injury of other sites of trunk 01/16/2006 07/01/2007 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 07/12/2021 Other ventral hernia without mention of obstruction or gangrene 03/26/2004 07/01/2007 THROMBOPHLEBITIS NOS(aka DVT) 07/21/2003 PULMON EMBOLISM/INFARCT(aka EMBOLISM) 07/21/2003 08/21/2009 documented as of this encounter (statuses as of 07/01/2022) [facility] History of Past illness Narrative* Problem Noted Date Resolved Date Screening for colon cancer 11/24/201607/12 Overview: Added automatically from request for surgery [id number] Pain in joint, lower leg 11/14/2008 010 MASS IN SUBCUTANEOUS TISSUE 07/21/200808/04 Non-healing surgical wound 03/16/200705/18 Other injury of other sites of trunk 01/16/2006 07/01/2007 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 07/12/2021 Other ventral hernia without mention of obstruction or gangrene 03/26/2004 07/01/2007 THROMBOPHLEBITIS NOS(aka DVT) 07/21/2003 PULMON EMBOLISM/INFARCT(aka EMBOLISM) 07/21/2003 08/21/2009 documented as of this encounter (statuses as of 07/03/2022) [facility] History of Past illness Narrative* Problem Noted Date Resolved Date Screening for colon cancer 11/24/201607/12 Overview: Added automatically from request for surgery [id number] Pain in joint, lower leg 11/14/2008 010 MASS IN SUBCUTANEOUS TISSUE 07/21/200808/04 Non-healing surgical wound 03/16/200705/18 Other injury of other sites of trunk 01/16/2006 07/01/2007 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 07/12/2021 Other ventral hernia without mention of obstruction or gangrene 03/26/2004 07/01/2007 THROMBOPHLEBITIS NOS(aka DVT) 07/21/2003 PULMON EMBOLISM/INFARCT(aka EMBOLISM) 07/21/2003 08/21/2009 documented as of this encounter (statuses as of 07/14/2022) [facility] History of Past illness Narrative* Problem Noted Date Resolved Date Screening for colon cancer 11/24/201607/12 Overview: Added automatically from request for surgery [id number] Pain in joint, lower leg 11/14/2008 010 MASS IN SUBCUTANEOUS TISSUE 07/21/200808/04 Non-healing surgical wound 03/16/200705/18 Other injury of other sites of trunk 01/16/2006 07/01/2007 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 07/12/2021 Other ventral hernia without mention of obstruction or gangrene 03/26/2004 07/01/2007 THROMBOPHLEBITIS NOS(aka DVT) 07/21/2003 PULMON EMBOLISM/INFARCT(aka EMBOLISM) 07/21/2003 08/21/2009 documented as of this encounter (statuses as of 07/31/2022) [facility] History of Past illness Narrative* Problem Noted Date Resolved Date Screening for colon cancer 11/24/201607/12 Overview: Added automatically from request for surgery [id number] Pain in joint, lower leg 11/14/2008 010 MASS IN SUBCUTANEOUS TISSUE 07/21/200808/04 Non-healing surgical wound 03/16/200705/18 Other injury of other sites of trunk 01/16/2006 07/01/2007 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 07/12/2021 Other ventral hernia without mention of obstruction or gangrene 03/26/2004 07/01/2007 THROMBOPHLEBITIS NOS(aka DVT) 07/21/2003 PULMON EMBOLISM/INFARCT(aka EMBOLISM) 07/21/2003 08/21/2009 documented as of this encounter (statuses as of 08/05/2022) [facility] History of Past illness Narrative* Problem Noted Date Resolved Date Screening for colon cancer 11/24/201607/12 Overview: Added automatically from request for surgery [id number] Pain in joint, lower leg 11/14/2008 010 MASS IN SUBCUTANEOUS TISSUE 07/21/200808/04 Non-healing surgical wound 03/16/200705/18 Other injury of other sites of trunk 01/16/2006 07/01/2007 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 07/12/2021 Other ventral hernia without mention of obstruction or gangrene 03/26/2004 07/01/2007 THROMBOPHLEBITIS NOS(aka DVT) 07/21/2003 PULMON EMBOLISM/INFARCT(aka EMBOLISM) 07/21/2003 08/21/2009 documented as of this encounter (statuses as of 08/14/2022) [facility] History of Past illness Narrative* Problem Noted Date Resolved Date Screening for colon cancer 11/24/201607/12 Overview: Added automatically from request for surgery [id number] Pain in joint, lower leg 11/14/2008 010 MASS IN SUBCUTANEOUS TISSUE 07/21/200808/04 Non-healing surgical wound 03/16/200705/18 Other injury of other sites of trunk 01/16/2006 07/01/2007 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 07/12/2021 Other ventral hernia without mention of obstruction or gangrene 03/26/2004 07/01/2007 THROMBOPHLEBITIS NOS(aka DVT) 07/21/2003 PULMON EMBOLISM/INFARCT(aka EMBOLISM) 07/21/2003 08/21/2009 documented as of this encounter (statuses as of 10/02/2022) [facility] History of Past illness Narrative* Problem Noted Date Resolved Date Screening for colon cancer 11/24/201607/12 Overview: Added automatically from request for surgery [id number] Pain in joint, lower leg 11/14/2008 010 MASS IN SUBCUTANEOUS TISSUE 07/21/200808/04 Non-healing surgical wound 03/16/200705/18 Other injury of other sites of trunk 01/16/2006 07/01/2007 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 07/12/2021 Other ventral hernia without mention of obstruction or gangrene 03/26/2004 07/01/2007 THROMBOPHLEBITIS NOS(aka DVT) 07/21/2003 PULMON EMBOLISM/INFARCT(aka EMBOLISM) 07/21/2003 08/21/2009 documented as of this encounter (statuses as of 10/09/2022) [facility] History of Past illness Narrative* Problem Noted Date Diagnosed Date Resolved Date Screening for colon cancer 11/24/2016 0 07/12/2021 Overview: Added automatically from request for surgery [id number] Pain in joint, lower leg 11/14/2008 MASS IN SUBCUTANEOUS TISSUE 07/21/2008 08/18/2018 Non-healing surgical wound 03/16/2007 0 05/18/2009 Other injury of other sites of trunk 01/16/2006 07/01/2007 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 07/12/2021 Other ventral hernia without mention of obstruction or gangrene 03/26/2004 07/01/2007 THROMBOPHLEBITIS NOS(aka DVT) 07/21/2003 08/21/2009 PULMON EMBOLISM/INFARCT(aka EMBOLISM) 07/21/2003 08/21/2009 documented as of this encounter (statuses as of 10/16/2022) [facility] History of Past illness Narrative* Problem Noted Date Diagnosed Date Resolved Date Screening for colon cancer 11/24/2016 0 07/12/2021 Overview: Added automatically from request for surgery [id number] Pain in joint, lower leg 11/14/2008 MASS IN SUBCUTANEOUS TISSUE 07/21/2008 08/18/2018 Non-healing surgical wound 03/16/2007 0 05/18/2009 Other injury of other sites of trunk 01/16/2006 07/01/2007 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 07/12/2021 Other ventral hernia without mention of obstruction or gangrene 03/26/2004 07/01/2007 THROMBOPHLEBITIS NOS(aka DVT) 07/21/2003 08/21/2009 PULMON EMBOLISM/INFARCT(aka EMBOLISM) 07/21/2003 08/21/2009 documented as of this encounter (statuses as of 12/05/2022) [facility] History of Past illness Narrative* Problem Noted Date Diagnosed Date Resolved Date Screening for colon cancer 11/24/2016 0 07/12/2021 Overview: Added automatically from request for surgery [id number] Pain in joint, lower leg 11/14/2008 MASS IN SUBCUTANEOUS TISSUE 07/21/2008 08/18/2018 Non-healing surgical wound 03/16/2007 0 05/18/2009 Other injury of other sites of trunk 01/16/2006 07/01/2007 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 07/12/2021 Other ventral hernia without mention of obstruction or gangrene 03/26/2004 07/01/2007 THROMBOPHLEBITIS NOS(aka DVT) 07/21/2003 08/21/2009 PULMON EMBOLISM/INFARCT(aka EMBOLISM) 07/21/2003 08/21/2009 documented as of this encounter (statuses as of 12/22/2022) [facility] History of Past illness Narrative* Problem Noted Date Diagnosed Date Resolved Date Screening for colon cancer 11/24/2016 0 07/12/2021 Overview: Added automatically from request for surgery [id number] Pain in joint, lower leg 11/14/2008 MASS IN SUBCUTANEOUS TISSUE 07/21/2008 08/18/2018 Non-healing surgical wound 03/16/2007 0 05/18/2009 Other injury of other sites of trunk 01/16/2006 07/01/2007 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 07/12/2021 Other ventral hernia without mention of obstruction or gangrene 03/26/2004 07/01/2007 THROMBOPHLEBITIS NOS(aka DVT) 07/21/2003 08/21/2009 PULMON EMBOLISM/INFARCT(aka EMBOLISM) 07/21/2003 08/21/2009 documented as of this encounter (statuses as of 12/24/2022) [facility] History of Past illness Narrative* Problem Noted Date Diagnosed Date Resolved Date Screening for colon cancer 11/24/2016 0 07/12/2021 Overview: Added automatically from request for surgery [id number] Pain in joint, lower leg 11/14/2008 MASS IN SUBCUTANEOUS TISSUE 07/21/2008 08/18/2018 Non-healing surgical wound 03/16/2007 0 05/18/2009 Other injury of other sites of trunk 01/16/2006 07/01/2007 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 07/12/2021 Other ventral hernia without mention of obstruction or gangrene 03/26/2004 07/01/2007 THROMBOPHLEBITIS NOS(aka DVT) 07/21/2003 08/21/2009 PULMON EMBOLISM/INFARCT(aka EMBOLISM) 07/21/2003 08/21/2009 documented as of this encounter (statuses as of 01/15/2023) [facility] History of Past illness Narrative* Problem Noted Date Diagnosed Date Resolved Date Screening for colon cancer 11/24/2016 0 07/12/2021 Overview: Added automatically from request for surgery [id number] Pain in joint, lower leg 11/14/2008 MASS IN SUBCUTANEOUS TISSUE 07/21/2008 08/18/2018 Non-healing surgical wound 03/16/2007 0 05/18/2009 Other injury of other sites of trunk 01/16/2006 07/01/2007 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 07/12/2021 Other ventral hernia without mention of obstruction or gangrene 03/26/2004 07/01/2007 THROMBOPHLEBITIS NOS(aka DVT) 07/21/2003 08/21/2009 PULMON EMBOLISM/INFARCT(aka EMBOLISM) 07/21/2003 08/21/2009 documented as of this encounter (statuses as of 01/15/2023) [facility] History of Past illness Narrative* Problem Noted Date Diagnosed Date Resolved Date Screening for colon cancer 11/24/2016 0 07/12/2021 Overview: Added automatically from request for surgery [id number] Pain in joint, lower leg 11/14/2008 MASS IN SUBCUTANEOUS TISSUE 07/21/2008 08/18/2018 Non-healing surgical wound 03/16/2007 0 05/18/2009 Other injury of other sites of trunk 01/16/2006 07/01/2007 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 07/12/2021 Other ventral hernia without mention of obstruction or gangrene 03/26/2004 07/01/2007 THROMBOPHLEBITIS NOS(aka DVT) 07/21/2003 08/21/2009 PULMON EMBOLISM/INFARCT(aka EMBOLISM) 07/21/2003 08/21/2009 documented as of this encounter (statuses as of 02/08/2023) [facility] History of Past illness Narrative* Problem Noted Date Diagnosed Date Resolved Date Screening for colon cancer 11/24/2016 0 07/12/2021 Overview: Added automatically from request for surgery [id number] Pain in joint, lower leg 11/14/2008 MASS IN SUBCUTANEOUS TISSUE 07/21/2008 08/18/2018 Non-healing surgical wound 03/16/2007 0 05/18/2009 Other injury of other sites of trunk 01/16/2006 07/01/2007 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 07/12/2021 Other ventral hernia without mention of obstruction or gangrene 03/26/2004 07/01/2007 THROMBOPHLEBITIS NOS(aka DVT) 07/21/2003 08/21/2009 PULMON EMBOLISM/INFARCT(aka EMBOLISM) 07/21/2003 08/21/2009 documented as of this encounter (statuses as of 02/08/2023) [facility] History of Past illness Narrative* Problem Noted Date Diagnosed Date Resolved Date Screening for colon cancer 11/24/2016 0 07/12/2021 Overview: Added automatically from request for surgery [id number] Pain in joint, lower leg 11/14/2008 MASS IN SUBCUTANEOUS TISSUE 07/21/2008 08/18/2018 Non-healing surgical wound 03/16/2007 0 05/18/2009 Other injury of other sites of trunk 01/16/2006 07/01/2007 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 07/12/2021 Other ventral hernia without mention of obstruction or gangrene 03/26/2004 07/01/2007 THROMBOPHLEBITIS NOS(aka DVT) 07/21/2003 08/21/2009 PULMON EMBOLISM/INFARCT(aka EMBOLISM) 07/21/2003 08/21/2009 documented as of this encounter (statuses as of 02/08/2023) [facility] History of Past illness Narrative* Problem Noted Date Diagnosed Date Resolved Date Screening for colon cancer 11/24/2016 0 07/12/2021 Overview: Added automatically from request for surgery [id number] Pain in joint, lower leg 11/14/2008 MASS IN SUBCUTANEOUS TISSUE 07/21/2008 08/18/2018 Non-healing surgical wound 03/16/2007 0 05/18/2009 Other injury of other sites of trunk 01/16/2006 07/01/2007 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 07/12/2021 Other ventral hernia without mention of obstruction or gangrene 03/26/2004 07/01/2007 THROMBOPHLEBITIS NOS(aka DVT) 07/21/2003 08/21/2009 PULMON EMBOLISM/INFARCT(aka EMBOLISM) 07/21/2003 08/21/2009 documented as of this encounter (statuses as of 02/08/2023) [facility] History of Past illness Narrative* Problem Noted Date Diagnosed Date Resolved Date Screening for colon cancer 11/24/2016 0 07/12/2021 Overview: Added automatically from request for surgery [id number] Pain in joint, lower leg 11/14/2008 MASS IN SUBCUTANEOUS TISSUE 07/21/2008 08/18/2018 Non-healing surgical wound 03/16/2007 0 05/18/2009 Other injury of other sites of trunk 01/16/2006 07/01/2007 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 07/12/2021 Other ventral hernia without mention of obstruction or gangrene 03/26/2004 07/01/2007 THROMBOPHLEBITIS NOS(aka DVT) 07/21/2003 08/21/2009 PULMON EMBOLISM/INFARCT(aka EMBOLISM) 07/21/2003 08/21/2009 documented as of this encounter (statuses as of 02/16/2023) [facility] History of Past illness Narrative* Problem Noted Date Diagnosed Date Resolved Date Screening for colon cancer 11/24/2016 0 07/12/2021 Overview: Added automatically from request for surgery [id number] Pain in joint, lower leg 11/14/2008 MASS IN SUBCUTANEOUS TISSUE 07/21/2008 08/18/2018 Non-healing surgical wound 03/16/2007 0 05/18/2009 Other injury of other sites of trunk 01/16/2006 07/01/2007 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 07/12/2021 Other ventral hernia without mention of obstruction or gangrene 03/26/2004 07/01/2007 THROMBOPHLEBITIS NOS(aka DVT) 07/21/2003 08/21/2009 PULMON EMBOLISM/INFARCT(aka EMBOLISM) 07/21/2003 08/21/2009 documented as of this encounter (statuses as of 03/03/2023) [facility] History of Past illness Narrative* Problem Noted Date Diagnosed Date Resolved Date Screening for colon cancer 11/24/2016 0 07/12/2021 Overview: Added automatically from request for surgery [id number] Pain in joint, lower leg 11/14/2008 MASS IN SUBCUTANEOUS TISSUE 07/21/2008 08/18/2018 Non-healing surgical wound 03/16/2007 0 05/18/2009 Other injury of other sites of trunk 01/16/2006 07/01/2007 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 07/12/2021 Other ventral hernia without mention of obstruction or gangrene 03/26/2004 07/01/2007 THROMBOPHLEBITIS NOS(aka DVT) 07/21/2003 08/21/2009 PULMON EMBOLISM/INFARCT(aka EMBOLISM) 07/21/2003 08/21/2009 documented as of this encounter (statuses as of 05/18/2023) [facility] History of Past illness Narrative* Problem Noted Date Diagnosed Date Resolved Date Screening for colon cancer 11/24/2016 0 07/12/2021 Overview: Added automatically from request for surgery [id number] Pain in joint, lower leg 11/14/2008 MASS IN SUBCUTANEOUS TISSUE 07/21/2008 08/18/2018 Non-healing surgical wound 03/16/2007 0 05/18/2009 Other injury of other sites of trunk 01/16/2006 07/01/2007 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 07/12/2021 Other ventral hernia without mention of obstruction or gangrene 03/26/2004 07/01/2007 THROMBOPHLEBITIS NOS(aka DVT) 07/21/2003 08/21/2009 PULMON EMBOLISM/INFARCT(aka EMBOLISM) 07/21/2003 08/21/2009 documented as of this encounter (statuses as of 05/20/2023) [facility] History of Past illness Narrative* Problem Noted Date Diagnosed Date Resolved Date Screening for colon cancer 11/24/2016 0 07/12/2021 Overview: Added automatically from request for surgery [id number] Pain in joint, lower leg 11/14/2008 MASS IN SUBCUTANEOUS TISSUE 07/21/2008 08/18/2018 Non-healing surgical wound 03/16/2007 0 05/18/2009 Other injury of other sites of trunk 01/16/2006 07/01/2007 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 07/12/2021 Other ventral hernia without mention of obstruction or gangrene 03/26/2004 07/01/2007 THROMBOPHLEBITIS NOS(aka DVT) 07/21/2003 08/21/2009 PULMON EMBOLISM/INFARCT(aka EMBOLISM) 07/21/2003 08/21/2009 documented as of this encounter (statuses as of 06/02/2023) [facility] History of Past illness Narrative* Problem Noted Date Diagnosed Date Resolved Date Screening for colon cancer 11/24/2016 0 07/12/2021 Overview: Added automatically from request for surgery [id number] Pain in joint, lower leg 11/14/2008 MASS IN SUBCUTANEOUS TISSUE 07/21/2008 08/18/2018 Non-healing surgical wound 03/16/2007 0 05/18/2009 Other injury of other sites of trunk 01/16/2006 07/01/2007 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 07/12/2021 Other ventral hernia without mention of obstruction or gangrene 03/26/2004 07/01/2007 THROMBOPHLEBITIS NOS(aka DVT) 07/21/2003 08/21/2009 PULMON EMBOLISM/INFARCT(aka EMBOLISM) 07/21/2003 08/21/2009 documented as of this encounter (statuses as of 06/04/2023) [facility]* Diagnosis BENIGN HYPERTENSION(aka HTN)- Primary Essential hypertension, benign Insomnia, unspecified type Hypothyroidism, acquired Unspecified hypothyroidism Bilateral leg edema Edema Female stress incontinence Dyspepsia Dyspepsia and other specified disorders of function of stomach Upper back pain Change in bowel function Other symptoms involving digestive system SOB (shortness of breath) Shortness of breath Rib pain on left side Chest pain, unspecified [facility] Diagnosis Left upper quadrant abdominal [facility] Diagnosis Left upper quadrant abdominal pain [facility] Diagnosis Insomnia, unspecified type [facility] Rib pain on left side- Primary Chest pain, unspecified [facility]* Diagnosis Lumbar spondylosis- Primary Lumbosacral spondylosis without myelopathy Other chronic pain Thoracic spine pain Pain in thoracic spine Myofascial pain Mylagia and myositis, unspecified [facility] Diagnosis Lumbar spondylosis Lumbosacral spondylosis without myelopathy Thoracic spine pain Pain in thoracic spine [facility] Diagnosis Rib pain Chest pain, unspecified [facility] Diagnosis Chronic midline low back pain with sciatica, sciatica laterality unspecified- Primary [facility] Diagnosis Insomnia, unspecified type [facility] Diagnosis Chronic midline low back pain with sciatica, sciatica laterality unspecified- Primary [facility] Diagnosis Lymphedema- Primary Other lymphedema documented [facility] this [facility]* Diagnosis Lymphedema- Primary Other lymphedema Lumbar spondylosis Lumbosacral spondylosis without myelopathy Thoracic spine pain Pain in thoracic spine Myofascial pain Mylagia and myositis, unspecified documented [facility] this encounter [facility]* Diagnosis Bilateral leg edema Edema documented in this encounter [facility] note* Diagnosis Lymphedema- Primary Other lymphedema documented [facility] this [facility]* Diagnosis Lumbar spondylosis- Primary Lumbosacral spondylosis without myelopathy documented [facility] this encounter [facility]* Diagnosis Lymphedema- Primary Other lymphedema Lumbar spondylosis Lumbosacral spondylosis without myelopathy Lumbar spondylosis Lumbosacral spondylosis without myelopathy documented in this encounter [facility] note* Diagnosis Lymphedema- Primary Other lymphedema Lumbar spondylosis Lumbosacral spondylosis without myelopathy Lumbar spondylosis Lumbosacral spondylosis without myelopathy documented in this encounter [facility] note* Diagnosis Lumbar spondylosis Lumbosacral spondylosis without myelopathy Lumbar spondylosis Lumbosacral spondylosis without myelopathy documented in this encounter [facility] note* Diagnosis Lumbar spondylosis- Primary Lumbosacral spondylosis without myelopathy Myofascial pain Mylagia and myositis, unspecified Other chronic pain Lumbar spondylosis Lumbosacral spondylosis without myelopathy documented in this encounter [facility] note* Diagnosis Lymphedema- Primary Other lymphedema Lumbar spondylosis Lumbosacral spondylosis without myelopathy [facility] Diagnosis Leg swelling- Primary Swelling of limb Shortness of breath Shortness of breath Abdominal distension Flatulence, eructation, and gas pain Function kidney decreased Unspecified disorder of kidney and ureter Lumbar spondylosis Lumbosacral spondylosis without myelopathy documented in this encounter [facility] note* Diagnosis Abdominal distension Flatulence, eructation, and gas pain Lumbar spondylosis Lumbosacral spondylosis without myelopathy [facility] Diagnosis Lymphedema- Primary Other lymphedema Lumbar spondylosis Lumbosacral spondylosis without myelopathy [facility] Diagnosis Bilateral leg edema Edema Lumbar spondylosis Lumbosacral spondylosis without myelopathy [facility] Diagnosis Insomnia, unspecified type documented [facility] this encounter [facility]* Diagnosis Lumbar spondylosis- Primary Lumbosacral spondylosis without myelopathy Myofascial pain Mylagia and myositis, unspecified documented [facility] this encounter [facility]* Diagnosis Lumbar spondylosis- Primary Lumbosacral spondylosis without myelopathy Lumbar spondylosis Lumbosacral spondylosis without myelopathy [facility] Diagnosis Female stress incontinence- Primary Lumbar spondylosis Lumbosacral spondylosis without myelopathy [facility]* Diagnosis Insomnia, unspecified type documented [facility] this encounter [facility]* Diagnosis C. difficile colitis- Primary Intestinal infection due to clostridium difficile Rectal bleeding Hemorrhage of rectum and anus Change in stool Nonspecific abnormal finding in stool contents Fall, initial encounter [facility] Diagnosis Lumbar spondylosis- Primary Lumbosacral spondylosis without myelopathy Anxiety due to invasive procedure [facility] Diagnosis Dysuria- Primary Female stress incontinence Leg swelling Swelling of limb Chronic knee pain, unspecified laterality Chronic right-sided low back pain without sciatica Change in stool Nonspecific abnormal finding in stool contents [facility] Diagnosis Female stress incontinence- Primary Urge urinary incontinence Urge incontinence [facility] Diagnosis Lumbar spondylosis- Primary Lumbosacral spondylosis without myelopathy [facility]* Diagnosis Insomnia, unspecified type [facility] Diagnosis Chronic bilateral low back pain without sciatica- Primary Lumbar spondylosis Lumbosacral spondylosis without myelopathy [facility] Diagnosis Chronic bilateral low back pain without sciatica- Primary Lumbar spondylosis Lumbosacral spondylosis without myelopathy [facility] Diagnosis Lumbar spondylosis- Primary Lumbosacral spondylosis without myelopathy Chronic bilateral low back pain without sciatica [facility]* Diagnosis Insomnia, unspecified type- Primary [facility] Diagnosis Lumbar spondylosis- Primary Lumbosacral spondylosis without myelopathy Myofascial pain Mylagia and myositis, unspecified documented in this encounter [facility] note* Diagnosis Rib pain Chest pain, unspecified documented [facility]* Diagnosis Female stress incontinence- Primary Chronic right-sided low back pain without sciatica BENIGN HYPERTENSION(aka HTN) Essential hypertension, benign Hypothyroidism, acquired Unspecified hypothyroidism Insomnia, unspecified type Leg swelling Swelling of limb Decreased glomerular filtration rate (GFR) Chronic knee pain, unspecified laterality Acute pain of left shoulder documented in this encounter [facility] note* Diagnosis Decreased glomerular filtration rate (GFR)- Primary [facility] Diagnosis Primary osteoarthritis of both shoulders- Primary Lumbar spondylosis Lumbosacral spondylosis without myelopathy Myofascial pain Mylagia and myositis, unspecified Rotator cuff impingement syndrome, unspecified laterality documented [facility] this encounter [facility]* Diagnosis Lumbar spondylosis Lumbosacral spondylosis without myelopathy Spinal stenosis of lumbar region without neurogenic claudication Spinal stenosis, lumbar region, without neurogenic claudication Thoracic spine pain Pain in thoracic spine Chronic midline thoracic back pain documented in this encounter [facility] note* Diagnosis Closed fracture of base of fifth metatarsal bone of right foot at metaphyseal-diaphyseal junction, initial encounter documented in this encounter [facility] note* Diagnosis Fall, initial encounter [facility] encounter [facility]* Diagnosis Primary osteoarthritis of both shoulders Rotator cuff impingement syndrome, unspecified laterality documented in this encounter [facility] note* Diagnosis Primary osteoarthritis of both shoulders- Primary documented in this encounter [facility] note* Diagnosis Primary osteoarthritis of both shoulders- Primary [facility]* Diagnosis Primary osteoarthritis of both shoulders- Primary documented in this encounter [facility] note* Diagnosis Primary osteoarthritis of both shoulders- Primary [facility] Diagnosis 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 documented in this encounter [facility] for referral (narrative)* Diagnostic Procedure Only (Routine) - Closed Specialty Diagnoses / Procedures Referred By Maryseac t Referred To Contact XR IMAGING Diagnoses SOB (shortness of breath) Rib pain on left side Procedures XR RIBS/CHEST 3V AP RIB/OBLS/CXR LEFT RADEX RIBS UNI W/POSTEROANT CH MINIMUM 3 VIEWS Lizy Capone MD [address] [place] [address] Xr Imaging Referral ID Status Reason Start Date Expiration Date V isits Requested Visits Authorized [id number] Closed Auto-Generate d Referral 07/16/2021 08/15/2022 1 1 [facility] for referral (narrative)* - Authorized Specialty Diagnoses / Procedures Referred By Contac t Referred To Contact Physical Therapy Diagnoses Lumbar spondylosis Thoracic spine pain Myofascial pain Procedures CONSULT TO PHYSICAL THERAPY Avis Marrufo, NANCI.RECREATION THERAPIST [address] [place] [address] Referral ID Status Reason Start Date Expiration Date V isits Requested Visits Authorized [id number] Authorized 09/19/2021 12/18/2021 99 99 * Diagnostic Procedure Only (Routine) - Pending Review Specialty Diagnoses / Procedures Referred By Contac t Referred To Contact XR IMAGING Diagnoses Thoracic spine pain Procedures XR THORACIC LIMITED 2V AP/LAT RADEX SPINE THORACIC 2 VIEWS Avis Marrufo, TIME ANALYSIS CLERK.RECREATION THERAPIST [address] [place] [address] Xr Imaging Referral ID Status Reason Start Date Expiration Date Visits Requested Visits Authorized [id number] Pending Review Auto-Generat ed Referral 09/19/2021 10/19/2022 1 1 * Diagnostic Procedure Only (Routine) - Pending Review Specialty Diagnoses / Procedures Referred By Contac t Referred To Contact XR IMAGING Diagnoses Lumbar spondylosis Procedures XR LUMBAR MOTION 4V AP/LAT/ FLEX/EXT RADEX SPINE LUMBOSACRAL MINIMUM 4 VIEWS Avis Marrufo, TIME ANALYSIS CLERK.RECREATION THERAPIST [address] [place] [address] Xr Imaging Referral ID Status Reason Start Date Expiration Date Visits Requested Visits Authorized [id number] Pending Review Auto-Generat ed Referral 09/19/2021 10/19/2022 1 1 [facility] for referral (narrative)* Diagnostic Procedure Only (Routine) - Closed Specialty Diagnoses / Procedures Referred By Contac t Referred To Contact XR IMAGING Diagnoses Thoracic spine pain Procedures XR THORACIC LIMITED 2V AP/LAT RADEX SPINE THORACIC 2 VIEWS Avis Marrufo TIME ANALYSIS CLERK.RECREATION THERAPIST [address] [place] [address] Xr Imaging Referral ID Status Reason Start Date Expiration Date V isits Requested Visits Authorized [id number] Closed Auto-Generate d Referral 09/19/2021 10/19/2022 1 1 * Diagnostic Procedure Only (Routine) - Closed Specialty Diagnoses / Procedures Referred By Contac t Referred To Contact XR IMAGING Diagnoses Lumbar spondylosis Procedures XR LUMBAR MOTION 4V AP/LAT/ FLEX/EXT RADEX SPINE LUMBOSACRAL MINIMUM 4 VIEWS Avis Marrufo, TIME ANALYSIS CLERK.RECREATION THERAPIST [address] [place] [address] Xr Imaging Referral ID Status Reason Start Date Expiration Date V isits Requested Visits Authorized [id number] Closed Auto-Generate d Referral 09/19/2021 10/19/2022 1 1 [facility] for referral (narrative)* Diagnostic Procedure Only (Urgent) - Closed Specialty Diagnoses / Procedures Referred By Contac t Referred To Contact US IMAGING Diagnoses Abdominal distension Procedures US ABDOMEN COMPLETE US ABDOMINAL REAL TIME W/IMAGE DOCUMENTATION Miryam Wells APRN.RECREATION THERAPIST [address] [place] [address] Us Imaging Referral ID Status Reason Start Date Expiration Date V isits Requested Visits Authorized [id number] Closed Auto-Generate d Referral 01/02/2022 02/01/2023 1 1 [facility] for referral (narrative)* Diagnostic Procedure Only (Routine) - Closed Specialty Diagnoses / Procedures Referred By Contac t Referred To Contact XR IMAGING Diagnoses Fall, initial encounter Procedures XR ELBOW SPECIAL VIEWS AP/LAT/OTHER LEFT RADEX ELBOW COMPLETE MINIMUM 3 VIEWS Jae Cagle MD [address] [place] [address] Xr Imaging Referral ID Status Reason Start Date Expiration Date V isits Requested Visits Authorized [id number] Closed Auto-Generate d Referral 05/13/2022 06/12/2023 1 1 * Diagnostic Procedure Only (Routine) - Closed Specialty Diagnoses / Procedures Referred By Contac t Referred To Contact XR IMAGING Diagnoses Fall, initial encounter Procedures XR HIP GENERAL 3V PELV/AP/LAT RIGHT RADEX HIP UNILATERAL WITH PELVIS 2-3 VIEWS Jae Cagle MD [address] [place] [address] Xr Imaging Referral ID Status Reason Start Date Expiration Date V isits Requested Visits Authorized [id number] Closed Auto-Generate d Referral 05/13/2022 06/12/2023 1 1 [facility] for referral (narrative)* Outpatient Procedure (Routine) - Pending Review Specialty Diagnoses / Procedures Referred By Contac t Referred To Contact [facility] Diagnoses Female stress incontinence Urge urinary incontinence Procedures URODYNAMICS WHI COMPLX CYSTOMETRO W/VOID PRESS&URETHRAL PROFILE Jud Gomes APRN.RECREATION THERAPIST [address] [place] [address] x2 [facility] [place] [address] [place] [address] Referral ID Status Reason Start Date Expiration Date Visits Requested Visits Authorized [id number] Pending Review Auto-Generat ed Referral 06/30/2022 06/30/2023 1 1 [facility] for referral (narrative)* Diagnostic Procedure Only (Routine) - Closed Specialty Diagnoses / Procedures Referred By Contac t Referred To Contact XR IMAGING Diagnoses Primary osteoarthritis of both shoulders Rotator cuff impingement syndrome, unspecified laterality Procedures XR SHOULDER [id number] AP/TRUE AP RIGHT RADEX SHOULDER COMPLETE MINIMUM 2 VIEWS Roque Jackson MD [address] [place] [address] [place] [address] Referral ID Status Reason Start Date Expiration Date V isits Requested Visits Authorized [id number] Closed Auto-Generate d Referral 01/15/2023 02/14/2024 1 1 * Diagnostic Procedure Only (Routine) - Closed Specialty Diagnoses / Procedures Referred By Contac t Referred To Contact XR IMAGING Diagnoses Primary osteoarthritis of both shoulders Rotator cuff impingement syndrome, unspecified laterality Procedures XR SHOULDER LIMITED 2V AP/TRUE AP LEFT RADEX SHOULDER COMPLETE MINIMUM 2 VIEWS Roque Jackson MD [address] [address] [place] [address] Referral ID Status Reason Start Date Expiration Date V isits Requested Visits Authorized [id number] Closed Auto-Generate d Referral 01/15/2023 02/14/2024 1 1 [facility] for referral (narrative)* Diagnostic Procedure Only (Routine) - Closed Specialty Diagnoses / Procedures Referred By Contac t Referred To Contact XR IMAGING Diagnoses Closed fracture of base of fifth metatarsal bone of right foot at metaphyseal-diaphyseal junction, initial encounter Procedures XR FOOT GENERAL 3V AP/LAT/OBL RIGHT RADEX FOOT COMPLETE MINIMUM 3 VIEWS Roque Jackson MD [address] [place] [address] [place] [address] Referral ID Status Reason Start Date Expiration Date V isits Requested Visits Authorized [id number] Closed Auto-Generate d Referral 07/31/2022 08/30/2023 1 1 [facility] for referral (narrative)* Diagnostic Procedure Only (Routine) - Closed Specialty Diagnoses / Procedures Referred By Contac t Referred To Contact XR IMAGING Diagnoses Fall, initial encounter Procedures XR ELBOW SPECIAL VIEWS AP/LAT/OTHER LEFT RADEX ELBOW COMPLETE MINIMUM 3 VIEWS Jae Cagle MD [address] [place] [address] [place] [address] Referral ID Status Reason Start Date Expiration Date V isits Requested Visits Authorized [id number] Closed Auto-Generate d Referral 05/13/2022 06/12/2023 1 1 * Diagnostic Procedure Only (Routine) - Closed Specialty Diagnoses / Procedures Referred By Kallie t Referred To Contact XR IMAGING Diagnoses Fall, initial encounter Procedures XR HIP GENERAL 3V PELV/AP/LAT RIGHT RADEX HIP UNILATERAL WITH PELVIS 2-3 VIEWS Jae Cagle MD [address] [place] [address] [place] [address] Referral ID Status Reason Start Date Expiration Date V isits Requested Visits Authorized [id number] Closed Auto-Generate d Referral 05/13/2022 06/12/2023 1 1 [facility] for referral (narrative)* Diagnostic Procedure Only (Routine) - Closed Specialty Diagnoses / Procedures Referred By Contac t Referred To Contact XR IMAGING Diagnoses Primary osteoarthritis of both shoulders Rotator cuff impingement syndrome, unspecified laterality Procedures XR SHOULDER [id number] AP/TRUE AP RIGHT RADEX SHOULDER COMPLETE MINIMUM 2 VIEWS Roque Jackson MD [address] [address] [place] [address] Referral ID Status Reason Start Date Expiration Date V isits Requested Visits Authorized [id number] Closed Auto-Generate d Referral 01/15/2023 02/14/2024 1 1 * Diagnostic Procedure Only (Routine) - Closed Specialty Diagnoses / Procedures Referred By Contac t Referred To Contact XR IMAGING Diagnoses Primary osteoarthritis of both shoulders Rotator cuff impingement syndrome, unspecified laterality Procedures XR SHOULDER LIMITED 2V AP/TRUE AP LEFT RADEX SHOULDER COMPLETE MINIMUM 2 VIEWS Roque Jackson MD [address] [address] [place] [address] Referral ID Status Reason Start Date Expiration Date V isits Requested Visits Authorized [id number] Closed Auto-Generate d Referral 01/15/2023 02/14/2024 1 1 [facility] for visit Narrative* Diagnostic Procedure Only (Routine) - Closed Specialty Diagnoses / Procedures Referred By Contac t Referred To Contact XR IMAGING Diagnoses Thoracic spine pain Procedures XR THORACIC LIMITED 2V AP/LAT RADEX SPINE THORACIC 2 VIEWS Avis Marrufo, TIME ANALYSIS CLERK.RECREATION THERAPIST [address] [place] [address] Xr Imaging Referral ID Status Reason Start Date Expiration Date V isits Requested Visits Authorized [id number] Closed Auto-Generate d Referral 09/19/2021 10/19/2022 1 1 [facility] for visit Narrative* Diagnostic Procedure Only (Urgent) - Closed Specialty Diagnoses / Procedures Referred By Contac t Referred To Contact US IMAGING Diagnoses Abdominal distension Procedures US ABDOMEN COMPLETE US ABDOMINAL REAL TIME W/IMAGE DOCUMENTATION Miryam Wells, TIME ANALYSIS CLERK.RECREATION THERAPIST [address] [place] [address] Us Imaging Referral ID Status Reason Start Date Expiration Date V isits Requested Visits Authorized [id number] Closed Auto-Generate d Referral 01/02/2022 02/01/2023 1 1 [facility] for visit Narrative* Diagnostic Procedure Only (Routine) - Closed Specialty Diagnoses / Procedures Referred By Contac t Referred To Contact XR IMAGING Diagnoses Closed fracture of base of fifth metatarsal bone of right foot at metaphyseal-diaphyseal junction, initial encounter Procedures XR FOOT GENERAL 3V AP/LAT/OBL RIGHT RADEX FOOT COMPLETE MINIMUM 3 VIEWS Roque Jackson MD [address] [address] [place] [address] Referral ID Status Reason Start Date Expiration Date V isits Requested Visits Authorized [id number] Closed Auto-Generate d Referral 07/31/2022 08/30/2023 1 1 [facility] for visit Narrative* Diagnostic Procedure Only (Routine) - Closed Specialty Diagnoses / Procedures Referred By Contac t Referred To Contact XR IMAGING Diagnoses Fall, initial encounter Procedures XR ELBOW SPECIAL VIEWS AP/LAT/OTHER LEFT RADEX ELBOW COMPLETE MINIMUM 3 VIEWS Jae Cagle MD [address] [place] [address] [place] [address] Referral ID Status Reason Start Date Expiration Date V isits Requested Visits Authorized [id number] Closed Auto-Generate d Referral 05/13/2022 06/12/2023 1 1 [facility] for visit Narrative* Diagnostic Procedure Only (Routine) - Closed Specialty Diagnoses / Procedures Referred By Contac t Referred To Contact XR IMAGING Diagnoses Primary osteoarthritis of both shoulders Rotator cuff impingement syndrome, unspecified laterality Procedures XR SHOULDER [id number] AP/TRUE AP RIGHT RADEX SHOULDER COMPLETE MINIMUM 2 VIEWS Roque Jackson MD [address] [address] [place] [address] Referral ID Status Reason Start Date Expiration Date V isits Requested Visits Authorized [id number] Closed Auto-Generate d Referral 01/15/2023 02/14/2024 1 1 [facility] Advance Directives No Advanced Directives Records FoundDocuments on File Type Date Recorded Patient Learning Support Aide 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 Advance Directive(s) 12/23/2016 7:30 PM Advance Directive(s) 05/22/2006 12:00 AM Advance Directive(s) 05/21/2006 12:00 AM Documents on File Type Date Recorded Patient Learning Support Aide 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 Advance Directive(s) 12/23/2016 7:30 PM Advance Directive(s) 05/22/2006 12:00 AM Advance Directive(s) 05/21/2006 12:00 AM Documents on File Type Date Recorded Patient Learning Support Aide 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 Advance Directive(s) 05/22/2006 Advance Directive(s) 05/21/2006 Documents on File Type Date Recorded Patient Learning Support Aide 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 Advance Directive(s) 05/22/2006 Advance Directive(s) 05/21/2006 Reason for Referral Specialty Diagnoses / Procedures Referred By Contac t Referred To Contact CT IMAGING Diagnoses Left upper quadrant abdominal pain Procedures CT ABD/PEL WO IVCON CT ABD & PELVIS W/O CONTRAST Lizy Capone MD [address] [place] [address] Ct Imaging Referral ID Status Reason Start Date Expiration Date Visits Requested Visits Authorized [id number] Authorized Auto-Generat ed Referral 07/18/2021 08/17/2022 1 1 Referral ID Status Reason Start Date Expiration Date V isits Requested Visits Authorized [id number] Closed Auto-Generate d Referral 07/18/2021 08/17/2022 1 1 Specialty Diagnoses / Procedures Referred By Contac t Referred To Contact Pain Management Diagnoses Rib pain on left side Procedures CONSULT TO PAIN MGT OFFICE/OUTPATIENT [facility] MDM 60-74 MINUTES Lizy Capone MD [address] [place] [address] Referral ID Status Reason Start Date Expiration Date Visits Requested Visits Authorized [id number] Authorized PCP Requested Referral 08/01/2021 08/01/2022 1 1 Specialty Diagnoses / Procedures Referred By Contac t Referred To Contact [facility] Diagnoses Lymphedema Procedures CONSULT TO LYMPHEDEMA THERAPY OFFICE/OUTPATIENT [facility] MDM 60-74 MINUTES Lizy Capone MD [address] [place] [address] [facility] [place] [address] [place] [address] Referral ID Status Reason Start Date Expiration Date Visits Requested Visits Authorized [id number] Authorized Auto-Generat ed Referral 11/13/2021 11/13/2022 99 99 Specialty Diagnoses / Procedures Referred By Contac t Referred To Contact [facility] Diagnoses Lymphedema Procedures CONSULT TO PHYSICAL THERAPY PHYSICAL THERAPY EVALUATION HIGH COMPLEX 45 MINS Lizy Capone MD [address] [place] [address] [facility] [place] [address] [place] [address] Referral ID Status Reason Start Date Expiration Date Visits Requested Visits Authorized [id number] Authorized PCP Requested Referral Auto-Generate d Referral 11/13/2021 11/13/2022 99 99 Specialty Diagnoses / Procedures Referred By Contac t Referred To Contact Nephrology Diagnoses Function kidney decreased Procedures CONSULT TO NEPHROLOGY OFFICE/OUTPATIENT [facility] MDM 60-74 MINUTES Miryam Wells APRN.RECREATION THERAPIST [address] [place] [address] Referral ID Status Reason Start Date Expiration Date Visits Requested Visits Authorized [id number] Authorized PCP Requested Referral 01/02/2022 01/02/2023 1 1 Specialty Diagnoses / Procedures Referred By Contac t Referred To Contact US IMAGING Diagnoses Abdominal distension Procedures US ABDOMEN COMPLETE US ABDOMINAL REAL TIME W/IMAGE DOCUMENTATION Miryam Wells APRN.RECREATION THERAPIST [address] [place] [address] Us Imaging Referral ID Status Reason Start Date Expiration Date Visits Requested Visits Authorized [id number] Authorized Auto-Generat ed Referral 01/02/2022 02/01/2023 1 1 Specialty Diagnoses / Procedures Referred By Contac t Referred To Contact Urology Diagnoses Female stress incontinence Procedures CONSULT TO UROLOGY OFFICE/OUTPATIENT [facility] MDM 60-74 MINUTES Miryam Wells APRN.RECREATION THERAPIST [address] [place] [address] Referral ID Status Reason Start Date Expiration Date Visits Requested Visits Authorized [id number] Authorized PCP Requested Referral 06/26/2022 06/26/2023 1 1 Specialty Diagnoses / Procedures Referred By Contac t Referred To Contact Nephrology Diagnoses Decreased glomerular filtration rate (GFR) Procedures CONSULT TO NEPHROLOGY OFFICE/OUTPATIENT [facility] MDM 60-74 MINUTES Miryam Wells APRN.RECREATION THERAPIST [address] [place] [address] Referral ID Status Reason Start Date Expiration Date Visits Requested Visits Authorized [id number] Authorized PCP Requested Referral 12/24/2022 12/24/2023 1 1 Specialty Diagnoses / Procedures Referred By Contac t Referred To Contact MR IMAGING Diagnoses Thoracic spine pain Chronic midline thoracic back pain Procedures MRI THORACIC SPINE WO IVCON MRI SPINAL CANAL THORACIC W/O CONTRAST MATRL Avis Marrufo, TIME ANALYSIS CLERK.RECREATION THERAPIST [address] [place] [address] Mr Imaging [facility] Referral ID Status Reason Start Date Expiration Date V isits Requested Visits Authorized [id number] Closed Auto-Generate d Referral 04/03/2022 05/03/2023 1 1 Specialty Diagnoses / Procedures Referred By Contac t Referred To Contact MR IMAGING Diagnoses Lumbar spondylosis Spinal stenosis of lumbar region without neurogenic claudication Procedures MRI LUMBAR SPINE WO IVCON MRI SPINAL CANAL LUMBAR W/O CONTRAST MATERIAL Avis Marrufo, TIME ANALYSIS CLERK.RECREATION THERAPIST [address] [place] [address] Mr Imaging [facility] Referral ID Status Reason Start Date Expiration Date V isits Requested Visits Authorized [id number] Closed Auto-Generate d Referral 04/03/2022 05/03/2023 1 1 Health Concerns Infection Onset Date Last Indicated Resolved Time C. difficile 05/05/2022 05/05/2022 Infection Onset Date Last Indicated Resolved Time C. difficile 05/05/2022 05/05/2022 Medications Administered Section Inactive Administered Medications - up to 3 most recent administrations Medication Order MAR Action Action Date Dose Rate Site lidocaine (PF) 10 mg/mL (1 %) 100 mg injection (XYLOCAINE) 100 mg, OTHER, ONCE, 1 dose, On Thu07/30/22 at 0800 Given by LIP 07/30/2022 2:18 PM EDT 100 mg Inactive Administered Medications - up to 3 most recent administrations Medication Order MAR Action Action Date Dose Rate Site lidocaine (PF) 10 mg/mL (1 %) 100 mg injection (XYLOCAINE) 100 mg, OTHER, ONCE, 1 dose, On Thu08/13/22 at 1430 Given by LIP 08/13/2022 2:54 PM EDT 100 mg Inactive Administered Medications - up to 3 most recent administrations Medication Order MAR Action Action Date Dose Rate Site iohexol 300 mg IV injection (OMNIPAQUE 300) 300 mg, OTHER, ONCE, 1 dose, On Thu02/16/23 at 1100 Given by [facility] 02/16/2023 11:51 AM EST 300 mg lidocaine (PF) 10 mg/mL (1 %) 100 mg injection (XYLOCAINE) 100 mg, OTHER, ONCE, 1 dose, On Thu02/16/23 at 1100 Given by [facility] 02/16/2023 11:50 AM EST 100 mg lidocaine (PF) 20 mg/mL (2 %) 200 mg injection (XYLOCAINE) 200 mg, OTHER, ONCE, 1 dose, On Thu02/16/23 at 1100 Given by [facility] 02/16/2023 11:51 AM EST 200 mg methylPREDNISolone acetate 40 mg injection (DEPO-Medrol) 40 mg, OTHER, ONCE, 1 dose, On Thu02/16/23 at 1100 Given by [facility] 02/16/2023 11:52 AM EST 80 mg Summary Purpose Family History No Family History Records FoundNo Family History Records Found Additional Source Comments Source Comments (unrecognize d section and content) In the event this informatio n is protected by the Federal Confidentiality of Alcohol and Drug Abuse Patient Records regulations: The Federal rules restrict any use of the information to criminally investigate or prosecute any alcohol or drug abuse patient.[facility] the event this information is protected by the Federal Confidentiality of Alcohol and Drug Abuse Patient Records regulations: The Federal rules restrict any use of the information to criminally investigate or prosecute any alcohol or drug abuse patient.[facility] the event this information is protected by the Federal Confidentiality of Alcohol and Drug Abuse Patient Records regulations: The Federal rules restrict any use of the information to criminally investigate or prosecute any alcohol or drug abuse patient.[facility] the event this information is protected by the Federal Confidentiality of Alcohol and Drug Abuse Patient Records regulations: The Federal rules restrict any use of the information to criminally investigate or prosecute any alcohol or drug abuse patient.[facility] the event this information is protected by the Federal Confidentiality of Alcohol and Drug Abuse Patient Records regulations: The Federal rules restrict any use of the information to criminally investigate or prosecute any alcohol or drug abuse patient.[facility] the event this information is protected by the Federal Confidentiality of Alcohol and Drug Abuse Patient Records regulations: The Federal rules restrict any use of the information to criminally investigate or prosecute any alcohol or drug abuse patient.[facility] the event this information is protected by the Federal Confidentiality of Alcohol and Drug Abuse Patient Records regulations: The Federal rules restrict any use of the information to criminally investigate or prosecute any alcohol or drug abuse patient.[facility] the event this information is protected by the Federal Confidentiality of Alcohol and Drug Abuse Patient Records regulations: The Federal rules restrict any use of the information to criminally investigate or prosecute any alcohol or drug abuse patient.[facility] the event this information is protected by the Federal Confidentiality of Alcohol and Drug Abuse Patient Records regulations: The Federal rules restrict any use of the information to criminally investigate or prosecute any alcohol or drug abuse patient.[facility] the event this information is protected by the Federal Confidentiality of Alcohol and Drug Abuse Patient Records regulations: The Federal rules restrict any use of the information to criminally investigate or prosecute any alcohol or drug abuse patient.[facility] the event this information is protected by the Federal Confidentiality of Alcohol and Drug Abuse Patient Records regulations: The Federal rules restrict any use of the information to criminally investigate or prosecute any alcohol or drug abuse patient.[facility] Hospital[facility] the event this information is protected by the Federal Confidentiality of Alcohol and Drug Abuse Patient Records regulations: The Federal rules restrict any use of the information to criminally investigate or prosecute any alcohol or drug abuse patient.[facility] Hospital[facility] the event this information is protected by the Federal Confidentiality of Alcohol and Drug Abuse Patient Records regulations: The Federal rules restrict any use of the information to criminally investigate or prosecute any alcohol or drug abuse patient.[facility] Hospital[facility] the event this information is protected by the Federal Confidentiality of Alcohol and Drug Abuse Patient Records regulations: The Federal rules restrict any use of the information to criminally investigate or prosecute any alcohol or drug abuse patient.[facility] Hospital[facility] the event this information is protected by the Federal Confidentiality of Alcohol and Drug Abuse Patient Records regulations: The Federal rules restrict any use of the information to criminally investigate or prosecute any alcohol or drug abuse patient.[facility] Hospital[facility] the event this information is protected by the Federal Confidentiality of Alcohol and Drug Abuse Patient Records regulations: The Federal rules restrict any use of the information to criminally investigate or prosecute any alcohol or drug abuse patient.[facility] HospitalIn the event this information is protected by the Federal Confidentiality of Alcohol and Drug Abuse Patient Records regulations: The Federal rules restrict any use of the information to criminally investigate or prosecute any alcohol or drug abuse patient.[facility] HospitalIn the event this information is protected by the Federal Confidentiality of Alcohol and Drug Abuse Patient Records regulations: The Federal rules restrict any use of the information to criminally investigate or prosecute any alcohol or drug abuse patient.[facility] HospitalIn the event this information is protected by the Federal Confidentiality of Alcohol and Drug Abuse Patient Records regulations: The Federal rules restrict any use of the information to criminally investigate or prosecute any alcohol or drug abuse patient.[facility] HospitalIn the event this information is protected by the Federal Confidentiality of Alcohol and Drug Abuse Patient Records regulations: The Federal rules restrict any use of the information to criminally investigate or prosecute any alcohol or drug abuse patient.[facility] HospitalIn the event this information is protected by the Federal Confidentiality of Alcohol and Drug Abuse Patient Records regulations: The Federal rules restrict any use of the information to criminally investigate or prosecute any alcohol or drug abuse patient.[facility] HospitalIn the event this information is protected by the Federal Confidentiality of Alcohol and Drug Abuse Patient Records regulations: The Federal rules restrict any use of the information to criminally investigate or prosecute any alcohol or drug abuse patient.[facility] HospitalIn the event this information is protected by the Federal Confidentiality of Alcohol and Drug Abuse Patient Records regulations: The Federal rules restrict any use of the information to criminally investigate or prosecute any alcohol or drug abuse patient.[facility] HospitalIn the event this information is protected by the Federal Confidentiality of Alcohol and Drug Abuse Patient Records regulations: The Federal rules restrict any use of the information to criminally investigate or prosecute any alcohol or drug abuse patient.[facility] HospitalIn the event this information is protected by the Federal Confidentiality of Alcohol and Drug Abuse Patient Records regulations: The Federal rules restrict any use of the information to criminally investigate or prosecute any alcohol or drug abuse patient.[facility] HospitalIn the event this information is protected by the Federal Confidentiality of Alcohol and Drug Abuse Patient Records regulations: The Federal rules restrict any use of the information to criminally investigate or prosecute any alcohol or drug abuse patient.[facility] HospitalIn the event this information is protected by the Federal Confidentiality of Alcohol and Drug Abuse Patient Records regulations: The Federal rules restrict any use of the information to criminally investigate or prosecute any alcohol or drug abuse patient.[facility] HospitalIn the event this information is protected by the Federal Confidentiality of Alcohol and Drug Abuse Patient Records regulations: The Federal rules restrict any use of the information to criminally investigate or prosecute any alcohol or drug abuse patient.[facility] HospitalIn the event this information is protected by the Federal Confidentiality of Alcohol and Drug Abuse Patient Records regulations: The Federal rules restrict any use of the information to criminally investigate or prosecute any alcohol or drug abuse patient.[facility] HospitalIn the event this information is protected by the Federal Confidentiality of Alcohol and Drug Abuse Patient Records regulations: The Federal rules restrict any use of the information to criminally investigate or prosecute any alcohol or drug abuse patient.[facility] HospitalIn the event this information is protected by the Federal Confidentiality of Alcohol and Drug Abuse Patient Records regulations: The Federal rules restrict any use of the information to criminally investigate or prosecute any alcohol or drug abuse patient.[facility] HospitalIn the event this information is protected by the Federal Confidentiality of Alcohol and Drug Abuse Patient Records regulations: The Federal rules restrict any use of the information to criminally investigate or prosecute any alcohol or drug abuse patient.[facility] HospitalIn the event this information is protected by the Federal Confidentiality of Alcohol and Drug Abuse Patient Records regulations: The Federal rules restrict any use of the information to criminally investigate or prosecute any alcohol or drug abuse patient.[facility] HospitalIn the event this information is protected by the Federal Confidentiality of Alcohol and Drug Abuse Patient Records regulations: The Federal rules restrict any use of the information to criminally investigate or prosecute any alcohol or drug abuse patient.[facility] HospitalIn the event this information is protected by the Federal Confidentiality of Alcohol and Drug Abuse Patient Records regulations: The Federal rules restrict any use of the information to criminally investigate or prosecute any alcohol or drug abuse patient.[facility] HospitalIn the event this information is protected by the Federal Confidentiality of Alcohol and Drug Abuse Patient Records regulations: The Federal rules restrict any use of the information to criminally investigate or prosecute any alcohol or drug abuse patient.[facility] HospitalIn the event this information is protected by the Federal Confidentiality of Alcohol and Drug Abuse Patient Records regulations: The Federal rules restrict any use of the information to criminally investigate or prosecute any alcohol or drug abuse patient.[facility] HospitalIn the event this information is protected by the Federal Confidentiality of Alcohol and Drug Abuse Patient Records regulations: The Federal rules restrict any use of the information to criminally investigate or prosecute any alcohol or drug abuse patient.[facility] HospitalIn the event this information is protected by the Federal Confidentiality of Alcohol and Drug Abuse Patient Records regulations: The Federal rules restrict any use of the information to criminally investigate or prosecute any alcohol or drug abuse patient.[facility] HospitalIn the event this information is protected by the Federal Confidentiality of Alcohol and Drug Abuse Patient Records regulations: The Federal rules restrict any use of the information to criminally investigate or prosecute any alcohol or drug abuse patient.[facility] HospitalIn the event this information is protected by the Federal Confidentiality of Alcohol and Drug Abuse Patient Records regulations: The Federal rules restrict any use of the information to criminally investigate or prosecute any alcohol or drug abuse patient.[facility] HospitalIn the event this information is protected by the Federal Confidentiality of Alcohol and Drug Abuse Patient Records regulations: The Federal rules restrict any use of the information to criminally investigate or prosecute any alcohol or drug abuse patient.[facility] HospitalIn the event this information is protected by the Federal Confidentiality of Alcohol and Drug Abuse Patient Records regulations: The Federal rules restrict any use of the information to criminally investigate or prosecute any alcohol or drug abuse patient.[facility] HospitalIn the event this information is protected by the Federal Confidentiality of Alcohol and Drug Abuse Patient Records regulations: The Federal rules restrict any use of the information to criminally investigate or prosecute any alcohol or drug abuse patient.[facility] HospitalIn the event this information is protected by the Federal Confidentiality of Alcohol and Drug Abuse Patient Records regulations: The Federal rules restrict any use of the information to criminally investigate or prosecute any alcohol or drug abuse patient.[facility] HospitalIn the event this information is protected by the Federal Confidentiality of Alcohol and Drug Abuse Patient Records regulations: The Federal rules restrict any use of the information to criminally investigate or prosecute any alcohol or drug abuse patient.[facility] HospitalIn the event this information is protected by the Federal Confidentiality of Alcohol and Drug Abuse Patient Records regulations: The Federal rules restrict any use of the information to criminally investigate or prosecute any alcohol or drug abuse patient.[facility] HospitalIn the event this information is protected by the Federal Confidentiality of Alcohol and Drug Abuse Patient Records regulations: The Federal rules restrict any use of the information to criminally investigate or prosecute any alcohol or drug abuse patient.[facility] HospitalIn the event this information is protected by the Federal Confidentiality of Alcohol and Drug Abuse Patient Records regulations: The Federal rules restrict any use of the information to criminally investigate or prosecute any alcohol or drug abuse patient.[facility] HospitalIn the event this information is protected by the Federal Confidentiality of Alcohol and Drug Abuse Patient Records regulations: The Federal rules restrict any use of the information to criminally investigate or prosecute any alcohol or drug abuse patient.[facility] HospitalIn the event this information is protected by the Federal Confidentiality of Alcohol and Drug Abuse Patient Records regulations: The Federal rules restrict any use of the information to criminally investigate or prosecute any alcohol or drug abuse patient.[facility] HospitalIn the event this information is protected by the Federal Confidentiality of Alcohol and Drug Abuse Patient Records regulations: The Federal rules restrict any use of the information to criminally investigate or prosecute any alcohol or drug abuse patient.[facility] HospitalIn the event this information is protected by the Federal Confidentiality of Alcohol and Drug Abuse Patient Records regulations: The Federal rules restrict any use of the information to criminally investigate or prosecute any alcohol or drug abuse patient.[facility] HospitalIn the event this information is protected by the Federal Confidentiality of Alcohol and Drug Abuse Patient Records regulations: The Federal rules restrict any use of the information to criminally investigate or prosecute any alcohol or drug abuse patient.[facility] HospitalIn the event this information is protected by the Federal Confidentiality of Alcohol and Drug Abuse Patient Records regulations: The Federal rules restrict any use of the information to criminally investigate or prosecute any alcohol or drug abuse patient.[facility] HospitalIn the event this information is protected by the Federal Confidentiality of Alcohol and Drug Abuse Patient Records regulations: The Federal rules restrict any use of the information to criminally investigate or prosecute any alcohol or drug abuse patient.[facility] HospitalIn the event this information is protected by the Federal Confidentiality of Alcohol and Drug Abuse Patient Records regulations: The Federal rules restrict any use of the information to criminally investigate or prosecute any alcohol or drug abuse patient.[facility] HospitalIn the event this information is protected by the Federal Confidentiality of Alcohol and Drug Abuse Patient Records regulations: The Federal rules restrict any use of the information to criminally investigate or prosecute any alcohol or drug abuse patient.[facility] HospitalIn the event this information is protected by the Federal Confidentiality of Alcohol and Drug Abuse Patient Records regulations: The Federal rules restrict any use of the information to criminally investigate or prosecute any alcohol or drug abuse patient.[facility] HospitalIn the event this information is protected by the Federal Confidentiality of Alcohol and Drug Abuse Patient Records regulations: The Federal rules restrict any use of the information to criminally investigate or prosecute any alcohol or drug abuse patient.[facility] HospitalIn the event this information is protected by the Federal Confidentiality of Alcohol and Drug Abuse Patient Records regulations: The Federal rules restrict any use of the information to criminally investigate or prosecute any alcohol or drug abuse patient.[facility] HospitalIn the event this information is protected by the Federal Confidentiality of Alcohol and Drug Abuse Patient Records regulations: The Federal rules restrict any use of the information to criminally investigate or prosecute any alcohol or drug abuse patient.[facility] HospitalIn the event this information is protected by the Federal Confidentiality of Alcohol and Drug Abuse Patient Records regulations: The Federal rules restrict any use of the information to criminally investigate or prosecute any alcohol or drug abuse patient.[facility] HospitalIn the event this information is protected by the Federal Confidentiality of Alcohol and Drug Abuse Patient Records regulations: The Federal rules restrict any use of the information to criminally investigate or prosecute any alcohol or drug abuse patient.[facility] HospitalIn the event this information is protected by the Federal Confidentiality of Alcohol and Drug Abuse Patient Records regulations: The Federal rules restrict any use of the information to criminally investigate or prosecute any alcohol or drug abuse patient.[facility] HospitalIn the event this information is protected by the Federal Confidentiality of Alcohol and Drug Abuse Patient Records regulations: The Federal rules restrict any use of the information to criminally investigate or prosecute any alcohol or drug abuse patient.[facility] HospitalIn the event this information is protected by the Federal Confidentiality of Alcohol and Drug Abuse Patient Records regulations: The Federal rules restrict any use of the information to criminally investigate or prosecute any alcohol or drug abuse patient.[facility] HospitalIn the event this information is protected by the Federal Confidentiality of Alcohol and Drug Abuse Patient Records regulations: The Federal rules restrict any use of the information to criminally investigate or prosecute any alcohol or drug abuse patient.[facility] HospitalIn the event this information is protected by the Federal Confidentiality of Alcohol and Drug Abuse Patient Records regulations: The Federal rules restrict any use of the information to criminally investigate or prosecute any alcohol or drug abuse patient.[facility] HospitalIn the event this information is protected by the Federal Confidentiality of Alcohol and Drug Abuse Patient Records regulations: The Federal rules restrict any use of the information to criminally investigate or prosecute any alcohol or drug abuse patient.[facility] HospitalIn the event this information is protected by the Federal Confidentiality of Alcohol and Drug Abuse Patient Records regulations: The Federal rules restrict any use of the information to criminally investigate or prosecute any alcohol or drug abuse patient.[facility] HospitalIn the event this information is protected by the Federal Confidentiality of Alcohol and Drug Abuse Patient Records regulations: The Federal rules restrict any use of the information to criminally investigate or prosecute any alcohol or drug abuse patient.[facility] HospitalIn the event this information is protected by the Federal Confidentiality of Alcohol and Drug Abuse Patient Records regulations: The Federal rules restrict any use of the information to criminally investigate or prosecute any alcohol or drug abuse patient.[facility] HospitalIn the event this information is protected by the Federal Confidentiality of Alcohol and Drug Abuse Patient Records regulations: The Federal rules restrict any use of the information to criminally investigate or prosecute any alcohol or drug abuse patient.[facility] HospitalIn the event this information is protected by the Federal Confidentiality of Alcohol and Drug Abuse Patient Records regulations: The Federal rules restrict any use of the information to criminally investigate or prosecute any alcohol or drug abuse patient.[facility] HospitalIn the event this information is protected by the Federal Confidentiality of Alcohol and Drug Abuse Patient Records regulations: The Federal rules restrict any use of the information to criminally investigate or prosecute any alcohol or drug abuse patient.[facility] HospitalIn the event this information is protected by the Federal Confidentiality of Alcohol and Drug Abuse Patient Records regulations: The Federal rules restrict any use of the information to criminally investigate or prosecute any alcohol or drug abuse patient.[facility] HospitalIn the event this information is protected by the Federal Confidentiality of Alcohol and Drug Abuse Patient Records regulations: The Federal rules restrict any use of the information to criminally investigate or prosecute any alcohol or drug abuse patient.[facility] Reason for Visit (unrecogniz ed section and content) Specialty Diagnoses / Procedures Referred By Kallie alejandra Referred To Contact Pain Management / PAIN MANAGEMENT Diagnoses Primary osteoarthritis, right shoulder Primary osteoarthritis, left shoulder Suprascapular Nerve Block with steroid infiltration under ultrasound guidance LEFT-SIDED, 81mg apsrin Procedures INJECTION AA&/STRD SUPRASCAPULAR NERVE PROCEDURE 20 Roque Jackson MD [address] [address] Roque Jackson MD [address] [address] Referral ID Status Reason Start Date Expiration Date Visits Re quested Visits Authorized [id number] Closed 04/06/2023 04/05/2024 1 1 Reason Comments Physical Therapy Specialty Diagnoses / Procedures Referred By Contac t Referred To Contact Physical Therapy / PHYSICAL THERAPY Diagnoses Lumbar spondylosis Thoracic spine pain Myofascial pain Procedures CONSULT TO PHYSICAL THERAPY Avis Marrufo, TIME ANALYSIS CLERK.RECREATION THERAPIST [address] [place] [address] [facility] [address] [place] [address] Referral ID Status Reason Start Date Expiration Date V isits Requested Visits Authorized [id number] Authorized 04/06/2021 04/05/2022 99 99 Reason Comments PT Eval Reason Comments PT Discharge Reason Comments Recheck Reason Comments Results Reason Comments Radiology CT Specialty Diagnoses / Procedures Referred By Contac t Referred To Contact CT IMAGING Diagnoses Left upper quadrant abdominal pain Procedures CT ABD/PEL WO IVCON CT ABD & PELVIS W/O CONTRAST Lizy Capone MD [address] [place] [address] Ct Imaging Referral ID Status Reason Start Date Expiration Date V isits Requested Visits Authorized [id number] Closed Auto-Generate d Referral 07/18/2021 08/17/2022 1 1 Reason Onset Date Comments Refill Request 07/26/2021 Reason Comments Results - Ct Reason Onset Date Comments Refill Request 09/12/2021 Reason Comments New Patient Evaluation Low Back Pain Reason Comments Patient Update Consult Reason Onset Date Comments Refill Request 10/01/2021 Reason Onset Date Comments Population Health Navigation Outreach 10/21/2021 HCC Reason Onset Date Comments Refill Request 10/24/2021 Reason Onset Date Comments Refill Request 11/26/2021 Reason Comments Refill Request Specialty Diagnoses / Procedures Referred By Contac t Referred To Contact Diagnoses Lumbar spondylosis Lumbar spondylosis [M47.816] Procedures NJX DX/THER AGT PVRT FACET JT LMBR/SAC 1 LEVEL NJX DX/THER AGT PVRT FACET JT LMBR/SAC 2ND LEVEL BLOCK JOINT FACET LUMBAR W/ C-ARM BILATERAL BLOCK JOINT FACET LUMBAR EACH ADDITIONAL VERTEBRA [address] [place] [address] Referral ID Status Reason Start Date Expiration Date Visits Re quested Visits Authorized [id number] 1 1 Reason Comments Follow Up Reason Comments Acute Visit bilat leg swelling Reason Comments Faxed Referral Referral ID Status Reason Start Date Expiration Date Visits Re quested Visits Authorized [id number] 1 1 Reason Comments Results Labs Reason Comments error Reason Onset Date Comments Refill Request 01/20/2022 Reason Comments Patient Update Injection questions for lodi Reason Comments requesting prescription Reason Onset Date Comments Population Health Navigation Outreach 03/04/2022 HCC Gaps Reason Onset Date Comments Refill Request 04/17/2022 Reason Comments MRI request Reason Comments Results Reason Comments Injections Reason Comments Consult Hernia in upper abdo men, and rectal bleeding Specialty Diagnoses / Procedures Referred By Contac t Referred To Contact General Surgery Diagnoses Rectal bleeding Change in stool Procedures CONSULT TO GENERAL SURGERY OFFICE/OUTPATIENT NEW HIGH MDM 60-74 MINUTES Miryam Wells, TIME ANALYSIS CLERK.RECREATION THERAPIST [address] [place] [address] Referral ID Status Reason Start Date Expiration Date V isits Requested Visits Authorized [id number] Closed PCP Requested Referral 04/21/2022 04/21/2023 1 1 Reason Comments Appointment Reason Comments Consult Reason Comments Appointment Scheduled for SPR de vice Reason Comments Acute Visit ?UTI Reason Comments Urinary Incontinence New Patient Reason Onset Date Comments Refill Request 07/14/2022 OUT OF MEDICATIO N Reason Comments Procedure SPR Reason Onset Date Comments Refill Request 10/08/2022 Reason Comments Follow Up Low Back Pain Follow up for back p ain Reason Onset Date Comments Refill Request 12/04/2022 Reason Comments Follow Up 3 month follow up Reason Comments Results Labs Reason Comments Follow Up Low Back Pain Pain (Shoulder Pain) Right worse Reason Comments Injection Questions Specialty Diagnoses / Procedures Referred By Contac t Referred To Contact MR IMAGING Diagnoses Lumbar spondylosis Spinal stenosis of lumbar region without neurogenic claudication Procedures MRI LUMBAR SPINE WO IVCON MRI SPINAL CANAL LUMBAR W/O CONTRAST MATERIAL Avis Marrufo, TIME ANALYSIS CLERK.RECREATION THERAPIST [address] [place] [address] [place] [address] Referral ID Status Reason Start Date Expiration Date V isits Requested Visits Authorized [id number] Closed Auto-Generate d Referral 04/03/2022 05/03/2023 1 1 Reason Comments Procedure Glenohumeral Joint i njection - bilateral Specialty Diagnoses / Procedures Referred By Contac t Referred To Contact Pain Management / PAIN MANAGEMENT Diagnoses Primary osteoarthritis, right shoulder Primary osteoarthritis, left shoulder (MEDICARE A & B) AUTH IS GOOD - CAD Glenohumeral joint injection, bilateral, under fluoroscopic guidance Procedures ARTHROCENTESIS ASPIR&/INJ MAJOR JT/BURSA W/O US PROCEDURE 20 Roque Jackson MD [address] [address] Roque Jackson MD [address] [address] Referral ID Status Reason Start Date Expiration Date Visits Re quested Visits Authorized [id number] Closed 02/16/2023 05/17/2023 1 1 Reason Comments Follow Up Bilateral GHJ USI Reason Comments Follow-up Shoulder Pain Follow Up Left suprascapular n erve block Care Teams (unrecognized sec tion and content) Air Chief Marshal Relationship Specialty Start Date End Date Lizy Capone MD [address] [place] [address] PCP - General 11/15/08 Air Chief Marshal Relationship Specialty Start Date End Date Lizy Capone MD [address] [place] [address] PCP - General 11/15/08 Air Chief Marshal Relationship Specialty Start Date End Date Lizy Capone MD [address] [place] [address] PCP - General 11/15/08 Air Chief Marshal Relationship Specialty Start Date End Date Lizy Capone MD [address] [place] [address] PCP - General 11/15/08 Air Chief Marshal Relationship Specialty Start Date End Date Lizy Capone MD [address] [place] [address] PCP - General 11/15/08 Air Chief Marshal Relationship Specialty Start Date End Date Lizy Capone MD [address] [place] [address] PCP - General 11/15/08 Air Chief Marshal Relationship Specialty Start Date End Date Lizy Capone MD [address] [place] [address] PCP - General 11/15/08 Air Chief Marshal Relationship Specialty Start Date End Date Lizy Capone MD [address] [place] [address], [place] [address] PCP - General 11/15/08 Air Chief Marshal Relationship Specialty Start Date End Date Lizy Capone MD [address] [place] [address] PCP - General 11/15/08 Air Chief Marshal Relationship Specialty Start Date End Date Lizy Capone MD [address] [place] [address] PCP - General 11/15/08 Air Chief Marshal Relationship Specialty Start Date End Date Lizy Capone MD [address] [place] [address] PCP - General 11/15/08 Air Chief Marshal Relationship Specialty Start Date End Date Lizy Capone MD [address] [place] [address] PCP - General 11/15/08 Air Chief Marshal Relationship Specialty Start Date End Date Lizy Capone MD [facility] [place] [address] PCP - General 11/15/08 Air Chief Marshal Relationship Specialty Start Date End Date Lizy Capone MD [address] [place] [address] PCP - General 11/15/08 Air Chief Marshal Relationship Specialty Start Date End Date Lizy Capone MD [address] [place] [address] PCP - General 11/15/08 Air Chief Marshal Relationship Specialty Start Date End Date Lizy Capone MD [address] [place] [address] PCP - General 11/15/08 Air Chief Marshal Relationship Specialty Start Date End Date Lizy Capone MD [address] [place] [address] PCP - General 11/15/08 Air Chief Marshal Relationship Specialty Start Date End Date Lizy Capone MD [address] [place] [address] PCP - General 11/15/08 Air Chief Marshal Relationship Specialty Start Date End Date Lizy Capone MD [address] [place] [address] PCP - General 11/15/08 Air Chief Marshal Relationship Specialty Start Date End Date Lizy Capone MD [address] [place] [address] PCP - General 11/15/08 Air Chief Marshal Relationship Specialty Start Date End Date Lizy Caopne MD [address] [place] [address] PCP - General 11/15/08 Air Chief Marshal Relationship Specialty Start Date End Date Lizy Capone MD [address] [place] [address] PCP - General 11/15/08 Air Chief Marshal Relationship Specialty Start Date End Date Lizy Capone MD [address] [place] [address] PCP - General 11/15/08 Air Chief Marshal Relationship Specialty Start Date End Date Lizy Capone MD [address] [place] [address] PCP - General 11/15/08 Air Chief Marshal Relationship Specialty Start Date End Date Lizy Capone MD [address] [place] [address] PCP - General 11/15/08 Air Chief Marshal Relationship Specialty Start Date End Date Lizy Capone MD [address] [place] [address] PCP - General 11/15/08 Air Chief Marshal Relationship Specialty Start Date End Date Lizy Capone MD [address] [place] [address] PCP - General 11/15/08 Air Chief Marshal Relationship Specialty Start Date End Date Lizy Capone MD [address] [place] [address] PCP - General 11/15/08 Air Chief Marshal Relationship Specialty Start Date End Date Lizy Capone MD [address] [place] [address] PCP - General 11/15/08 Air Chief Marshal Relationship Specialty Start Date End Date Lizy Capone MD [address] [place] [address] PCP - General 11/15/08 Air Chief Marshal Relationship Specialty Start Date End Date Lizy Capone MD [address] [place] [address] PCP - General 11/15/08 Air Chief Marshal Relationship Specialty Start Date End Date Lizy Capone MD [address] [place] [address] PCP - General 11/15/08 Air Chief Marshal Relationship Specialty Start Date End Date Lizy Capone MD [address] [place] [address] PCP - General 11/15/08 Air Chief Marshal Relationship Specialty Start Date End Date Lizy Capone MD [address] [place] [address] PCP - General 11/15/08 Air Chief Marshal Relationship Specialty Start Date End Date Lizy Capone MD [address] [place] [address] PCP - General 11/15/08 Air Chief Marshal Relationship Specialty Start Date End Date Lizy Capone MD [address] [place] [address] PCP - General 11/15/08 Air Chief Marshal Relationship Specialty Start Date End Date Lizy Capone MD [address] [place] [address] PCP - General 11/15/08 Air Chief Marshal Relationship Specialty Start Date End Date Lizy Capone MD [address] [place] [address] PCP - General 11/15/08 Air Chief Marshal Relationship Specialty Start Date End Date Lizy Capone MD [address] [place] [address] PCP - General 11/15/08 Air Chief Marshal Relationship Specialty Start Date End Date Lizy Capone MD [address] [place], [place] [address] [phone] PCP - General 11/15/08 Air Chief Marshal Relationship Specialty Start Date End Date Lizy Capone MD [address] [place] [address] PCP - General 11/15/08 Air Chief Marshal Relationship Specialty Start Date End Date Lizy Capone MD [address] [place] [address] PCP - General 11/15/08 Air Chief Marshal Relationship Specialty Start Date End Date Lizy Capone MD [address] [place] [address] PCP - General 11/15/08 Air Chief Marshal Relationship Specialty Start Date End Date Lizy Capone MD [address] [place] [address] PCP - General 11/15/08 Air Chief Marshal Relationship Specialty Start Date End Date Lizy Capone MD [address] [place] [address] PCP - General 11/15/08 Air Chief Marshal Relationship Specialty Start Date End Date Lizy Capone MD [address] [place] [address] PCP - General 11/15/08 Air Chief Marshal Relationship Specialty Start Date End Date Lizy Capone MD [address] [place] [address] PCP - General 11/15/08 PRN Active and Recently Administ ered Medications (unrecognized section and content) PRN Medication Order 01/06/2022 01/07/2022 01/08/2022 iohexol IV injection (OMNIPAQUE 300) (CANCELED) X (OR/PROCEDURE) PRN, Starting on Thu01/08/22 at 1123, Until Thu01/08/22 at 1137, Intraprocedure 1123 (Given - Provid er: Roque Jackson MD - Comment: MBB Bilateral L4-5; L5-S1) lidocaine (PF) 10 mg/mL (1 %) injection (XYLOCAINE) (CANCELED) X (OR/PROCEDURE) PRN, Starting on Thu01/08/22 at 1124, Until Thu01/08/22 at 1137, Intraprocedure 1124 (Given - Provid er: Roque Jackson MD - Comment: MBB Bilateral L4-5; L5-S1) lidocaine 20 mg/mL (2 %) injection (XYLOCAINE) (CANCELED) X (OR/PROCEDURE) PRN, Starting on Thu01/08/22 at 1123, Until Thu01/08/22 at 1137, Intraprocedure 1123 (Given - Provid er: Roque Jackson MD - Comment: MBB Bilateral L4-5; L5-S1) Inactive Administered Medications - up to 3 most recent administrations Administered Medications (un recognized section and content) INFORMATION SOURCE (unrecogn ized section and content) DATE CREATED AUTHOR AUTHOR'S ORGANIZ ATION 06/07/2023 [facility] FOR RECORDS PERTAINING TO PATIENTS WHO ARE OR HAVE BEEN ENROLLED IN A CHEMICAL DEPENDENCY/SUBSTANCEABUSE PROGRAM, SOME INFORMATION MAY BE OMITTED. This clinical summary was aggregated from multiple sources. Caution should be exercised in using it in the provision of clinical care. This summary normalizes information from multiple sources, and as a consequence, information in this document may materially change the coding, format and clinical context of patient data. In addition, data may be omitted in some cases. CLINICAL DECISIONS SHOULD BE BASED ON THE PRIMARY CLINICAL RECORDS. [employer] provides no warranty or guarantee of the accuracy or completeness of information in this document.
[2023-06-07] MEDS: Ondansetron 4 MG/2 ML Vial IV (21:26)
[2023-06-07] MEDS: Morphine 4 MG/ML Syringe IV (21:26)
[2023-06-07] MEDS: 0.9% Normal Saline (1000mL) 1,000 ML 999 ML IV (21:33)
[2023-06-07 21:34] VITALS: BP 138/80; PULSE 75; PULSE 76; RESP 19; TEMP 36.3; TEMP 36.4; O2SAT 96; O2SAT 98
[2023-06-07 21:57] LABS: Absolute Lymphocyte Count 1.14 X10^3/uL (0.83-4.51); Basophil# 0.08 X10^3/uL; Eosinophil# 0.31 X10^3/uL; Eosinophils% 3.9 % (0-5); Hematocrit 41.1 % (37-47); Hemoglobin 12.6 g/dL (12.0-15.0); Lymphocyte # 1.14 X10^3/ul (0.83-4.51); Lymphocyte % 14.2 % (19-41); Mean Corp Hgb Conc 30.7 g/dL (32-36); Mean Corpuscular Hgb 32.9 pg (27.0-32.0); Mean Corpuscular Volume 107.3 fL (81-99); Mean Platelet Vol. 12.5 fl (6.2-12.0); Monocyte# 0.47 X10^3/uL; Monocyte% 5.8 % (0-10); NRBC Flagged by Analyzer 0 % (0-5); Neutrophil # 6.03 X10^3/uL (2.7-7.7); Neutrophil % 74.9 % (47-70); Platelet Count 248 K/mm3 (150-450); RBC Distribution Width CV 13.7 % (11.6-14.6); RBC Distribution Width SD 54.8 fl (35.1-43.9); Red Blood Count 3.83 M/mm3 (4.2-5.4); White Blood Count 8.1 K/mm3 (4.4-11.0)
[2023-06-07 22:25] LABS: ALB/GLOB Ratio 0.9 RATIO (0.9-2.4); AST(SGOT) 23 U/L (15-37); Alanine Aminotransfer ALT/SGPT 23 U/L (13-56); Albumin, Serum 3.7 g/dL (3.2-5.0); Alkaline Phosphatase 82 U/L (45-117); Anion Gap 7 (5-15); BUN 87 mg/dL (7-18); Calcium,Total 9.3 mg/dL (8.5-10.1); Chloride 112 mmol/L (98-107); Creatinine, Serum 2.42 mg/dL (0.55-1.02); EST Glomerular Filtration Rate 20 mL/min (>60); Est Glom Filt Rate - Afr Amer 25 mL/min (>60); Estimated Creatinine Clearance 19.95 ml/min; Globulin 3.9 g/dL (2.2-4.2); Glucose 102 mg/dL (74-106); Potassium 4.6 mmol/L (3.5-5.1); Protein, Total 7.6 g/dL (6.4-8.2); Sodium Level 139 mmol/L (136-145)
[2023-06-07] MEDS: HYDROmorphone 0.5 MG/0.5 ML SYRINGE IV (22:57)
[2023-06-07] MEDS: Magnesium Citrate 300 ML 150 ML PO (23:20)
--- NOTE | 2023-06-07 23:34 | PCM.HP.STD ---
[facility] - General General Date of Admission: 06/08/23 Date of Service: 06/07/23 Chief Complaint: Abdominal pain constipation HPI Narrative MARI VEGA, is an 82 F with a past medical history of essential hypertension, hypothyroidism, obesity; with BMI of 38.4 this admission, TADEO, remote history of gastric bypass (2004), chronic diastolic CHF; with preserved left ventricular ejection fraction, history of COPD, history of DVT/PE, history of COVID-19 (2020), history of cholecystectomy, chronic kidney disease; stage III, chronic LE lymphedema, history of MRSA, GERD, history of spinal cord stimulator and osteoarthritis; s/p bilateral TKR who presents to [facility] ER complaining of abdominal pain and constipation. Ms. Vega reports her symptoms began approximately 3 days prior to admission with constipation accompanied by a gradual-onset of generalized abdominal pain and distention that became acutely worse around noon today with no BM or flatus for the past 3 days so she decided to give herself an enema and to come in for further evaluation and treatment. She states she typically has daily BM's and she ate cereal earlier in the morning and initially felt fine but then gradually worsened throughout the day. She denies associated nausea, vomiting or a history of colonic obstruction. In the ER her CT scan of the abdomen and pelvis revealed evidence of constipation with possible fecal impaction and moderate dilatation of the entire colon complicated by laboratory evidence of JOSE; with elevated serum creatinine of 2.42 mg/dL present on admission (up from her baseline of 1.42 mg/dL last admission) with patient then having a large BM in the ER (but still needed admission for JOSE) and she was then admitted to the general medical floor for ongoing care for a stay that is expected to be greater than 48 hours. [facility] Medical History (HFpEF) heart failure with preserved ejection fraction Abdominal pain Arthritis Cholecystectomy planned Chronic acquired lymphedema Chronic kidney disease Chronic obstructive airway disease with asthma COVID-19 (01/19/21) DVT (deep venous thrombosis) Essential (primary) hypertension GERD (gastroesophageal reflux disease) H/O hemorrhoids History of back problems History of pulmonary embolus (PE) Incomplete left bundle branch block Insomnia Morbid obesity with BMI of 45.0-49.9, adult MRSA (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 Obesity Obstructive sleep apnea Spinal cord stimulator status Swelling of left lower extremity Thyroid disease Home Medications omeprazole 20 mg capsule,delayed release 20 mg PO DAILY 11/13/17 [History Last Taken 01/07/18 08:30] zinc 50 mg tablet 50 mg PO DAILY 02/09/18 [History Last Taken Unknown] glucosamine 500 jb-qyerorkkh-cehebnkj comp 400 mg-D3 667 unit-C-Mn cap 1 cap PO TID 10/17/19 [History Last Taken Unknown] hydrocortisone-pramoxine 2.5 %-1 % (4g) rectal cream 1 applic GA BID 10/17/19 [History Last Taken Unknown] zolpidem 10 mg tablet 10 mg PO QHS SLEEP 01/09/21 [History Last Taken Unknown] calcium acetate(phosphat bind) 667 mg capsule 667 mg PO TID 07/25/21 [History Last Taken Unknown] calcium carbonate 600 mg-vitamin D3 10 mcg (400 unit) capsule 1 cap PO BID 07/25/21 [History Last Taken Unknown] cholecalciferol (vitamin D3) 25 mcg (1,000 unit) capsule 50 mcg PO DAILY 07/25/21 [History Last Taken Unknown] cyclobenzaprine 10 mg tablet 10 mg PO BID PRN Muscle Spasm 07/25/21 [History Last Taken Unknown] levonorgestrel 21 mcg/24 hours (8 yrs) 52 mg intrauterine device (Mirena) 1 mcg intrauterine ONCE 07/25/21 [History Last Taken Unknown] levothyroxine 125 mcg tablet 125 mcg PO DAILY 07/25/21 [History Last Taken Unknown] vitamin B complex 1 cap PO DAILY 07/25/21 [History Last Taken Unknown] vitamin E mixed 400 unit capsule 400 unit PO DAILY 07/25/21 [History Last Taken Unknown] ascorbate calcium (vitamin C) 500 mg tablet 500 mg PO DAILY 12/19/21 [History Last Taken Unknown] pyridoxine (vitamin B6) 100 mg tablet (Vitamin B-6) 100 mg PO DAILY 12/19/21 [History Last Taken Unknown] acetaminophen 500 mg tablet 1,000 mg PO BID 06/27/22 [History Last Taken Unknown] gabapentin 300 mg capsule 300 mg PO TID 06/27/22 [History Last Taken Unknown] magnesium oxide 200 mg PO DAILY 06/27/22 [History Last Taken Unknown] multivitamin 1 tab PO DAILY 06/27/22 [History Last Taken Unknown] nitroglycerin 0.4 mg sublingual tablet 0.4 mg sublingual Q5M PRN chest pain #30 tabs 06/27/22 [Rx Last Taken Unknown] aspirin 81 mg tablet,delayed release (Adult Aspirin Regimen) 81 mg PO DAILY 07/11/22 [History Last Taken 08/01/22] furosemide 20 mg tablet (Lasix) 20 mg PO DAILY #90 tabs 10/03/22 [Rx Last Taken Unknown] lisinopril 10 mg tablet 10 mg PO DAILY 06/07/23 [History Last Taken Unknown] vibegron 75 mg tablet (Gemtesa) 75 mg PO DAILY 06/07/23 [History Last Taken Unknown] Allergy/AdvReac Type Severity Reaction Status Date / Time cefazolin [From Kefzol] Allergy Severe hives/difficulty Verified 10/03/22 10:07 swallowing ibuprofen Allergy Unknown Rash Verified 10/03/22 10:07 peanut Allergy Anaphylaxis Verified 10/03/22 10:07 Sulfa (Sulfonamide Allergy Unknown Verified 10/03/22 10:07 Antibiotics) sulfamethoxazole Allergy Other Verified 10/03/22 10:07 [From Bactrim] trimethoprim [From Bactrim] Allergy Other Verified 10/03/22 10:07 Family History Mother Cancer uterine Surgical History H/O hemorrhoidectomy History of bilateral knee replacement History of dilatation and curettage History of gastric bypass History of herniorrhaphy History of hysteroscopy History of left heart catheterization (08/01/22) History of open reduction and internal fixation (ORIF) procedure Status post debridement Social History Smoking Status: Never smoker alcohol intake: never substance use type: does not use caffeine: Yes Type: coffee Number of servings: 3 ROS ROS Narrative Review of systems: General: Patient denies fever or chills. HENT: Denies headache, denies stuffy nose, denies sore throat EYES: Denies changes in vision or discharge from eyes. Resp: Denies cough, denies shortness of breath Cardiac: Denies chest pain or palpitations GI: Patient admits to abdominal pain, nausea and constipation but she denies vomiting. : Denies changes in urination Extremity: Denies swelling Musculoskeletal: Feels somewhat generally weak and unwell Neuro: Denies any numbness/tingling Heme: Denies any bleeding or bruising Skin: Denies rashes Psychiatric: No complaints voiced related alcohol depression or anxiety. Endocrine: No polyuria, polydipsia or polyphagia. The rest of the 14 point ROS was negative except for positives in HPI. Vital Signs Vital Signs Vital Signs: 06/07/23 19:09 06/07/23 21:34 06/07/23 21:34 Temperature 98.1 F 97.4 F L 97.5 F L Temperature Source Temporal Oral Oral Pulse Rate 92 76 75 Respiratory Rate 15 19 H 19 H Blood Pressure 148/93 H 138/80 H 138/80 H Blood Pressure Mean 111 99 99 Pulse Ox 97 96 98 Oxygen Delivery Method Room Air Room Air Room Air Weight Weight: 210 lb Body Mass Index (BMI) 38.4 Physical Exam Const alert and oriented x3 Constitutional Narrative: Mild distress noted with distended abdomen patient fairly uncomfortable. General Appearance: cooperative HEENT normocephalic, head/scalp atraumatic, hearing grossly normal bilaterally and moist oral mucous membranes Eyes PERRL and EOMs intact bilaterally Neck no lymphadenopathy and supple Resp normal respiratory effort, no retractions, no use of accessory muscles and clear to auscultation bilaterally Cardio regular rate and regular rhythm GI normal to inspection, nondistended, normoactive bowel sounds and soft to palpation GI Narrative: Patient is abdomen is grossly distended with mild generalized tenderness to palpation with obvious previous ventral hernias without evidence of obstruction. Extremity full ROM Extremity Narrative: Patient has evidence of mild bilateral chronic lower extremity lymphedema. Neuro oriented x3, CN's II-XII intact bilaterally, moves all extremities and no focal motor deficits Sensorium / Orientation: awake, alert, oriented to person, oriented to place and oriented to time Speech: speech normal Motor Exam: strength 5/5 throughout Psych Mood & Affect: anxious Results Medical Records Data Attestation: I reviewed the patient's medical records Lab / Micro Data Attestation: I reviewed the patient's lab results. 06/07/23 21:25 06/07/23 21:25 Labs: Laboratory Results - last 24 hr 06/07/23 21:25: WBC 8.1, RBC 3.83 L, Hgb 12.6, Hct 41.1, MCV 107.3 H, MCH 32.9 H, MCHC 30.7 L, RDW Std Deviation 54.8 H, RDW Coeff of Parris 13.7, Plt Count 248, MPV 12.5 H, Immature Gran % (Auto) 0.200, Neut % (Auto) 74.9 H, Lymph % (Auto) 14.2 L, Henderson % (Auto) 5.8, Eos % (Auto) 3.9, Baso % (Auto) 1.0, Absolute Neuts (auto) 6.0, Absolute Lymphs (auto) 1.14, Nucleated RBC % 0, Sodium 139, Potassium 4.6, Chloride 112 H, Carbon Dioxide 20.0 L, Anion Gap 7, BUN 87 H, Creatinine 2.42 H, Estim Creat Clear Calc 19.95, Est GFR (MDRD) Af Amer 25 L, Est GFR (MDRD) Non-Af 20 L, BUN/Creatinine Ratio 36.0 H, Glucose 102, Calcium 9.3, Total Bilirubin 0.40, AST 23, ALT 23, Alkaline Phosphatase 82, Total Protein 7.6, Albumin 3.7, Globulin 3.9, Albumin/Globulin Ratio 0.9 Imaging Radiology Impression Abdomen CT 06/07/23 19:29 IMPRESSION: 1. Suspect constipation with possible fecal impaction and moderate dilatation of the remainder of the colon. 2. Tiny nonobstructing left renal stone. Electronically Signed: Jae Carty MD at 23:06 EST , Assessment & Plan Assessment/Plan (1) Constipation: QUALIFIERS: Constipation type: chronic idiopathic constipation Qualified Code(s): K59.04 - Chronic idiopathic constipation (2) Fecal impaction in rectum: (3) Acute kidney injury superimposed on chronic kidney disease: (4) Dyspnea on minimal exertion: PLAN: Plan 1. CT scan of the abdomen and pelvis revealed evidence of constipation with possible fecal impaction and moderate dilatation of the entire colon - Admit to general medical floor. Continue bowel regimen and repeat enemas as needed to obtain complete evacuation. Give Zofran IV prn nausea and give Tylenol prn for pain or fever. 2. Laboratory evidence of JOSE; with elevated serum creatinine of 2.42 mg/dL present on admission (up from her baseline of 1.42 mg/dL last admission) due to #1 in the setting of Chronic kidney disease; stage III - Aggressively volume resuscitate and then recheck BMP in the AM to ensure improvement. 3. Generalized weakness with ambulatory dysfunction and malaise arising from #1 & #2 - We we will consult PT/OT and case management to see this patient on rounds in the a.m. with help appreciated in advance. 4. Obesity; with BMI of 38.4 this admission plus TADEO in the setting of a remote history of gastric bypass (2004) compounding #1 - #3 - Weight loss will be recommended. Resume CPAP as previous. 5. Essential hypertension - Hold scheduled antihypertensives until kidney function normalizes. 6. Hypothyroidism - Continue Synthroid and check TSH in light of #1. 7. Chronic diastolic CHF; with preserved left ventricular ejection fraction - Stable. 8. History of COPD - Stable with no evidence of flare. Continue prn nebulizers. 9. History of DVT/PE - Noted. 10. History of COVID-19 (2020) - Noted. 11. History of cholecystectomy - Noted. 12. Chronic LE lymphedema - Stable. 13. History of MRSA - Place on contact precautions. 14. GERD - Continue PPI. 15. History of spinal cord stimulator - Noted. 16. Osteoarthritis; s/p bilateral TKR - Stable. Give Tylenol prn. 17. DVT prophylaxis - Lovenox 30 mg sq daily. Total time: Approximately 55 minutes. Charges/Coding Visit Charges Inpatient E&M: 23004 Init Hosp L2
[2023-06-07 23:35] VITALS: BP 127/69; PULSE 98; RESP 16; O2SAT 99
[2023-06-07 23:36] VITALS: BP 127/69; PULSE 98; RESP 19; TEMP 36.4; O2SAT 99
--- OUTSIDE RECORDS SUMMARY | 2023-06-08 00:51 | XMS RPT_ITS | CCD ---
Author Name Unknown Address [address] [place] [address] Organization [facility] Care Team Providers Care Colored Liquid Plastic Applier Name Role Phone Lizy Capone MD Primary Care Provider [phone] MIRYAM WELLS Referring Unavailable LIZY CAPONE Primary [...] Care Unavailable MIRYAM WELLS Attending Unavailable LIZY CAPNOE Primary Care Unavailable Lizy Capone MD Primary Care Provider [phone] ROQUE JACKSON Attending Unavailable ALINE JACKSONMIT Referring [...] LIZY CAPONE Primary Care Unavailable JACKSON, ROQUE Referring Unavailable JACKSON, ROQUE Attending Unavailable LIZY CAPONE Primary Care Unavailable JACKSON, ROQUE Attending Unavailable LIZY CAPONE Primary Care Unavailable JACKSON, ROQUE Attending Unavailable LIZY CAPONE Primary Care Unavailable JACKSON, ROQUE Attending Unavailable LIZY CAPONE Primary Care Unavailable Allergies Allergy Classification Reported Allergen(s) Allergy Type Date of Onset Reaction(s) Facility (20 sources) Aspirin; Translations: [ASPIRIN] Drug Allergy 11-15-19 09 Intolerance [facility] (20 sources) ceFAZolin; Translations: [CEFAZOLIN SODIUM] Drug Allergy 08-10-19 19 [facility] (20 sources) Ibuprofen; Translations: [IBUPROFEN] Drug Allergy 11-08-19 16 Rash [facility] Work Phone: (20 sources) Sulfamethoxazole / Trimethoprim; Translations: [SULFAMETHOXAZOLE-T RIMETHOPRIM] Drug Allergy 07-24-19 17 [facility] (20 sources) Sulfonamides (Antibiotic); Translations: [SULFA (SULFONAMIDE ANTIBIOTICS)] Drug Allergy 07-24-19 17 [facility] (20 sources) Peanut Butter [Other] Propensity to adverse reactions 11-15-19 03 [facility] (6 sources) peanut allergenic extract; Translations: [PEANUT] Drug Allergy 03-31-20 23 Anaphylaxis [facility] Work Phone: (2 sources) OTHER; Translations: [OTHER] Propensity to adverse reactions (disorder) 11-15-19 03 [facility] Medications Current Medications Medication Drug [...] Translations: [Body mass index (BMI) 40.0-44.9, adult ([facility])] Onset: 07-31-2022 Chronic Other screening for suspected [...] 07:01-0500 Body height 157.5 cm Rebekah Alexander FILLING AND PACKING SUPERVISOR.MANUFACTURE SPECIALIST Work Phone: [facility] 06-02-2023 07:01-0500 Body weight 98.88 kg Rebekah Alexander APRN.MANUFACTURE SPECIALIST Work Phone: [facility] 05-18-2023 13:33-0500 Diastolic blood pressure 56 mm[Hg] Roque Jackson MD Work Phone: [facility] 05-18-2023 13:33-0500 Heart rate 79 /min Roque Jackson MD Work Phone: [facility] 05-18-2023 13:33-0500 Respiratory rate 18 /min Roque Jackson MD Work Phone: [facility] 05-18-2023 13:33-0500 SaO2% (BldA) [Mass fraction] 97 % Roque Jackson MD Work Phone: [facility] 05-18-2023 13:33-0500 Systolic blood pressure 122 mm[Hg] Roque Jackson MD Work Phone: [facility] 03-02-2023 06:59-0500 Body height 157.5 cm Rebekah Benjamin FILLING AND PACKING SUPERVISOR.MANUFACTURE SPECIALIST Work Phone: [facility] 03-02-2023 06:59-0500 Body weight 104.33 kg Rebekah Benjamin FILLING AND PACKING SUPERVISOR.MANUFACTURE SPECIALIST Work Phone: [facility] 02-16-2023 12:02-0500 Diastolic blood pressure 77 mm[Hg] Roque Jackson MD Work Phone: [facility] 02-16-2023 12:02-0500 Heart rate 54 /min Roque Jackson MD Work Phone: [facility] 02-16-2023 12:02-0500 Respiratory rate 17 /min Roque Jackson MD Work Phone: [facility] 02-16-2023 12:02-0500 SaO2% (BldA) [Mass fraction] 99 % Roque Jackson MD Work Phone: [facility] 02-16-2023 12:02-0500 Systolic blood pressure 130 mm[Hg] Roque Jackson MD Work Phone: [facility] 01-15-2023 08:19-0400 Heart rate 71 /min Roque Jackson MD Work Phone: [facility] 01-15-2023 08:19-0400 Respiratory rate 18 /min Roque Jackson MD Work Phone: [facility] 01-15-2023 08:19-0400 SaO2% (BldA) [Mass fraction] 97 % Roque Jackson MD Work Phone: [facility] 12-22-2022 08:51-0400 Body weight 104.33 kg Miryam Wells FILLING AND PACKING SUPERVISOR.MANUFACTURE SPECIALIST Work Phone: [facility] 12-22-2022 08:51-0400 Diastolic blood pressure 72 mm[Hg] Miryam Wells FILLING AND PACKING SUPERVISOR.MANUFACTURE SPECIALIST Work Phone: [facility] 12-22-2022 08:51-0400 Heart rate 61 /min Miryam Tannhof FILLING AND PACKING SUPERVISOR.MANUFACTURE SPECIALIST Work Phone: [facility] 12-22-2022 08:51-0400 Respiratory rate 16 /min Miryam Tannhof FILLING AND PACKING SUPERVISOR.MANUFACTURE SPECIALIST Work Phone: [facility] 12-22-2022 08:51-0400 SaO2% (BldA) [Mass fraction] 96 % Miryampoonam Kimballhof FILLING AND PACKING SUPERVISOR.MANUFACTURE SPECIALIST Work Phone: [facility] 12-22-2022 08:51-0400 Systolic blood pressure 112 mm[Hg] Miryam Tannhof FILLING AND PACKING SUPERVISOR.MANUFACTURE SPECIALIST Work Phone: [facility] 10-16-2022 08:03-0400 Heart rate 79 /min Roque Jackson MD Work Phone: [facility] 10-16-2022 08:03-0400 Respiratory rate 16 /min Roque Jackson MD Work Phone: [facility] 10-16-2022 08:03-0400 SaO2% (BldA) [Mass fraction] 95 % Roque Jackson MD Work Phone: [facility] 10-02-2022 09:55-0400 Heart rate 62 /min Roque Jackson MD Work Phone: [facility] 10-02-2022 09:55-0400 Respiratory rate 17 /min Roque Jackson MD Work Phone: [facility] 10-02-2022 09:55-0400 SaO2% (BldA) [Mass fraction] 97 % Roque Jackson MD Work Phone: [facility] 08-13-2022 15:20-0400 Diastolic blood pressure 81 mm[Hg] Roque Jackson MD Work Phone: [facility] 08-13-2022 15:20-0400 Heart rate 53 /min Roque Jackson MD Work Phone: [facility] 08-13-2022 15:20-0400 Respiratory rate 15 /min Roque Jackson MD Work Phone: [facility] 08-13-2022 15:20-0400 SaO2% (BldA) [Mass fraction] 97 % Roque Jackson MD Work Phone: [facility] 08-13-2022 15:20-0400 Systolic blood pressure 131 mm[Hg] Roque Jackson MD Work Phone: [facility] 07-30-2022 14:35-0400 Diastolic blood pressure 59 mm[Hg] Roque Jackson MD Work Phone: [facility] 07-30-2022 14:35-0400 Heart rate 55 /min Roque Jackson MD Work Phone: [facility] 07-30-2022 14:35-0400 Respiratory rate 16 /min Roque Jackson MD Work Phone: [facility] 07-30-2022 14:35-0400 SaO2% (BldA) [Mass fraction] 100 % Roque Jackson MD Work Phone: [facility] 07-30-2022 14:35-0400 Systolic blood pressure 129 mm[Hg] Roque Jackson MD Work Phone: [facility] 06-30-2022 09:29-0400 Body height 157.5 cm Jud Barley FILLING AND PACKING SUPERVISOR.MANUFACTURE SPECIALIST Work Phone (unformatted): [phone] [facility] 06-30-2022 09:29-0400 Body weight 135.63 kg Jud Barley FILLING AND PACKING SUPERVISOR.MANUFACTURE SPECIALIST Work Phone (unformatted): [phone] [facility] 06-30-2022 09:29-0400 Diastolic blood pressure 80 mm[Hg] Jud Barley FILLING AND PACKING SUPERVISOR.MANUFACTURE SPECIALIST Work Phone (unformatted): [phone] [facility] 06-30-2022 09:29-0400 Heart rate 66 /min Jud Barley FILLING AND PACKING SUPERVISOR.MANUFACTURE SPECIALIST Work Phone (unformatted): [phone] [facility] 06-30-2022 09:29-0400 Respiratory rate 16 /min Jud Barley FILLING AND PACKING SUPERVISOR.MANUFACTURE SPECIALIST Work Phone (unformatted): [phone] [facility] 06-30-2022 09:29-0400 SaO2% (BldA) [Mass fraction] 94 % Jud Barley FILLING AND PACKING SUPERVISOR.MANUFACTURE SPECIALIST Work Phone (unformatted): [phone] [facility] 06-30-2022 09:29-0400 Systolic blood pressure 135 mm[Hg] Jud Barley FILLING AND PACKING SUPERVISOR.MANUFACTURE SPECIALIST Work Phone (unformatted): [phone] [facility] 06-26-2022 08:54-0400 Body weight 135.63 kg Miryam Kimballhof FILLING AND PACKING SUPERVISOR.MANUFACTURE SPECIALIST Work Phone: [facility] 06-26-2022 08:54-0400 Diastolic blood pressure 76 mm[Hg] Miryam Tannhof FILLING AND PACKING SUPERVISOR.MANUFACTURE SPECIALIST Work Phone: [facility] 06-26-2022 08:54-0400 Heart rate 77 /min Miryam Kimballhof FILLING AND PACKING SUPERVISOR.MANUFACTURE SPECIALIST Work Phone: [facility] 06-26-2022 08:54-0400 Respiratory rate 20 /min Miryam Kimballhof FILLING AND PACKING SUPERVISOR.MANUFACTURE SPECIALIST Work Phone: [facility] 06-26-2022 08:54-0400 SaO2% (BldA) [Mass fraction] 96 % Miryam Kimballhof FILLING AND PACKING SUPERVISOR.MANUFACTURE SPECIALIST Work Phone: [facility] 06-26-2022 08:54-0400 Systolic blood pressure 124 mm[Hg] Miryam Kimballhof FILLING AND PACKING SUPERVISOR.MANUFACTURE SPECIALIST Work Phone: [facility] 05-13-2022 15:21-0500 Body height 157.5 cm Jae Cagle MD Work Phone: [facility] 05-13-2022 15:21-0500 Body temperature 98.01 [degF] Jae Cagle MD Work Phone: [facility] 05-13-2022 15:21-0500 Body weight 129.28 kg Jae Cagle MD Work Phone: [facility] 05-13-2022 15:21-0500 Diastolic blood pressure 58 mm[Hg] Jae Cagle MD Work Phone: [facility] 05-13-2022 15:21-0500 Heart rate 74 /min Jae Cagle MD Work Phone: [facility] 05-13-2022 15:21-0500 SaO2% (BldA) [Mass fraction] 91 % Jae Cagle MD Work Phone: [facility] 05-13-2022 15:21-0500 Systolic blood pressure 108 mm[Hg] Jae Cagle MD Work Phone: [facility] 01-30-2022 15:50-0400 Heart rate 67 /min Roque Jackson MD Work Phone: [facility] 01-30-2022 15:50-0400 Respiratory rate 18 /min Roque Jackson MD Work Phone: [facility] 01-30-2022 15:50-0400 SaO2% (BldA) [Mass fraction] 97 % Roque Jackson MD Work Phone: [facility] 01-08-2022 11:38-0400 Body temperature 97.9 [degF] Roque Jackson MD Work Phone: [facility] 01-08-2022 11:38-0400 Diastolic blood pressure 70 mm[Hg] Roque Jackson MD Work Phone: [facility] 01-08-2022 11:38-0400 Respiratory rate 16 /min Roque Jackson MD Work Phone: [facility] 01-08-2022 11:38-0400 SaO2% (BldA) [Mass fraction] 100 % Roque Jackson MD Work Phone: [facility] 01-08-2022 11:38-0400 Systolic blood pressure 148 mm[Hg] Roque Jackson MD Work Phone: [facility] 01-08-2022 10:36-0400 Heart rate 64 /min Roque Jackson MD Work Phone: [facility] 01-02-2022 07:07-0400 Body weight 119.75 kg Miryam Wells APRN.CNP Work Phone: [facility] 01-02-2022 07:07-0400 Diastolic blood pressure 80 mm[Hg] Miryam Kimballhof FILLING AND PACKING SUPERVISOR.MANUFACTURE SPECIALIST Work Phone: [facility] 01-02-2022 07:07-0400 Heart rate 61 /min Miryam Kimballhof FILLING AND PACKING SUPERVISOR.MANUFACTURE SPECIALIST Work Phone: [facility] 01-02-2022 07:07-0400 Respiratory rate 20 /min Miryam Kimballhof FILLING AND PACKING SUPERVISOR.MANUFACTURE SPECIALIST Work Phone: [facility] 01-02-2022 07:07-0400 SaO2% (BldA) [Mass fraction] 98 % Miryam Kimballhof FILLING AND PACKING SUPERVISOR.MANUFACTURE SPECIALIST Work Phone: [facility] 01-02-2022 07:07-0400 Systolic blood pressure 138 mm[Hg] Miryam Kimballhof FILLING AND PACKING SUPERVISOR.MANUFACTURE SPECIALIST Work Phone: [facility] 12-26-2021 14:38-0400 Body height 157.5 cm Avis Españafield FILLING AND PACKING SUPERVISOR.MANUFACTURE SPECIALIST Work Phone: [facility] 12-26-2021 14:38-0400 Body weight 104.33 kg Avis Españafield FILLING AND PACKING SUPERVISOR.MANUFACTURE SPECIALIST Work Phone: [facility] 12-25-2021 13:06-0400 Diastolic blood pressure 67 mm[Hg] Roque Jackson MD Work Phone: [facility] 12-25-2021 13:06-0400 Heart rate 57 /min Roque Jackson MD Work Phone: [facility] 12-25-2021 13:06-0400 Respiratory rate 18 /min Roque Jackson MD Work Phone: [facility] 12-25-2021 13:06-0400 SaO2% (BldA) [Mass fraction] 98 % Roque Jackson MD Work Phone: [facility] 12-25-2021 13:06-0400 Systolic blood pressure 142 mm[Hg] Roque Jackson MD Work Phone: [facility] 12-25-2021 13:03-0400 Body temperature 97.7 [degF] Roque Jackson MD Work Phone: [facility] 09-19-2021 09:23-0400 Heart rate 63 /min Avis Marrufo FILLING AND PACKING SUPERVISOR.MANUFACTURE SPECIALIST Work Phone: [facility] 09-19-2021 09:23-0400 Respiratory rate 18 /min Avis Marrufo FILLING AND PACKING SUPERVISOR.MANUFACTURE SPECIALIST Work Phone: [facility] 09-19-2021 09:23-0400 SaO2% (BldA) [Mass fraction] 97 % Avis Marrufo FILLING AND PACKING SUPERVISOR.MANUFACTURE SPECIALIST Work Phone: [facility] 07-16-2021 09:08-0400 Body weight 104.42 kg Lizy Capone MD Work Phone: [facility] 07-16-2021 09:08-0400 Diastolic blood pressure 64 mm[Hg] Lizy Capone MD Work Phone: [facility] 07-16-2021 09:08-0400 Heart rate 72 /min Lizy Capone MD Work Phone: [facility] 07-16-2021 09:08-0400 Respiratory rate 16 /min Lizy Capone MD Work Phone: [facility] 07-16-2021 09:08-0400 Systolic blood pressure 110 mm[Hg] Lizy Capone MD Work Phone: [facility] Encounters Encounter Date Encounter Type Care Provider Facility Start: 06-04-2023 Telephone encounter Rebekah Eduardosekou Alexander FILLING AND PACKING SUPERVISOR.MANUFACTURE SPECIALIST Work Phone: [facility] Procedures Date [...] tho racic w/o contrast matrl Avis Marrufo FILLING AND PACKING SUPERVISOR.MANUFACTURE SPECIALIST Work Phone: Start: 01-08-2022 End: 01-08-2022 Njx dx/ther agt pvrt facet jt lmbr/sac 1 level Roque Jackson MD Work Phone: Start: 01-03-2022 Us abdominal real ti me w/image documentation Miryam Wells FILLING AND PACKING SUPERVISOR.MANUFACTURE SPECIALIST Work Phone: Start: 12-25-2021 End: 12-25-2021 Njx dx/ther agt pvrt facet jt lmbr/sac 1 level Roque Jackson MD Work Phone: Start: 09-20-2021 Radex spine lumbosac ral minimum 4 views Avis Marrufo FILLING AND PACKING SUPERVISOR.MANUFACTURE SPECIALIST Work Phone: Start: 09-19-2021 Adult depression scr eening assessment Avis Marrufo FILLING AND PACKING SUPERVISOR.MANUFACTURE SPECIALIST Work Phone: Start: 07-25-2021 Ct abdomen & pelvis w/o contrast material Lizy Capone MD Work Phone: Start: 11-25-2018 Adult depression scr eening assessment Lizy Capone MD Work Phone: Plan of Treatment Date Care Activity Detail Author Start: 09-01-2027 Urine microalbumin profile [facility] Start: 01-15-2026 Diabetes Screening Diabetes Screening [facility] Start: 12-22-2025 Diabetes Screening Diabetes Screening [facility] Start: 09-26-2025 DIABETES SCREEN DIABETES SCREEN [facility] Start: 09-26-2025 Diabetes Screening Diabetes Screening [facility] Start: 01-06-2025 DIABETES SCREEN DIABETES SCREEN [facility] Start: 07-16-2024 DIABETES SCREEN DIABETES SCREEN [facility] Start: 05-08-2024 Complete blood count Hemoglobin/Hematocrit [facility] Start: 05-08-2024 Creatinine measurement Serum Creatinine [facility] Start: 04-15-2024 Annual PCP Team Chronic Disease Visit Annual PCP Team Chronic Disease Visit [facility] Start: 01-16-2024 Serum Creatinine Serum Creatinine [facility] Start: 12-23-2023 Annual PCP Team Chronic Disease Visit Annual PCP Team Chronic Disease Visit [facility] Start: 12-23-2023 BP Controlled (<130/80) BP Controlled (<130/80) [facility] Start: 12-23-2023 Serum Creatinine Serum Creatinine [facility] Start: 09-27-2023 ANNUAL PCP TEAM CHRONIC DISEASE VISIT ANNUAL PCP TEAM CHRONIC DISEASE VISIT [facility] Start: 09-27-2023 SERUM CREATININE SERUM CREATININE [facility] Start: 06-27-2023 ANNUAL PCP TEAM CHRONIC DISEASE VISIT ANNUAL PCP TEAM CHRONIC DISEASE VISIT [facility] Start: 06-27-2023 BP CONTROLLED (<130/80) BP CONTROLLED (<130/80) [facility] Start: 05-13-2023 BP CONTROLLED (<130/80) BP CONTROLLED (<130/80) [facility] Start: 04-21-2023 ANNUAL PCP TEAM CHRONIC DISEASE VISIT ANNUAL PCP TEAM CHRONIC DISEASE VISIT [facility] Start: 04-21-2023 BP CONTROLLED (<130/80) BP CONTROLLED (<130/80) [facility] Start: 04-06-2023 Depression Assessment Depression Assessment [facility] Start: 01-23-2023 End: 03-25-2023 Comprehensive metabolic 2000 panel - Serum or Plasma COMP METABOLIC PANEL Lab Routine Decreased glomerular filtration rate (GFR) Expected: 01/23/2023, Expires: 03/25/[address] [facility] Work Phone: Immunizations Immunization Date Immunization Notes Care Provider Abraham simpson 02-12-2022 influenza, high dose seasonal, preservative-free Lizy Capone MD Work Phone: [facility] 02-12-2022 influenza virus vacc ine, unspecified formulation Miryam Wells APRN.CNP Work Phone: [facility] 12-27-2021 COVID-19 booster vaccine, age 18+ yr, bivalent (MODERNA) Allison Pryor PT [facility] 12-27-2021 COVID-19 vaccine, ag e 12+ yr, bivalent (PFIZER-BIONTECH) Roque Jackson MD Work Phone: [facility] Work Phone: 12-17-2020 influenza, high dose seasonal, preservative-free Lizy Capone MD Work Phone: [facility] 11-23-2019 influenza, high dose seasonal, preservative-free Lizy Capone MD Work Phone: [facility] 12-11-2017 influenza, high dose seasonal, preservative-free Lizy Capone MD Work Phone: [facility] 08-31-2017 tetanus toxoid, redu tana diphtheria toxoid, and acellular pertussis vaccine, adsorbed Lizy Capone MD Work Phone: [facility] 01-06-2017 influenza, high dose seasonal, preservative-free Lizy Capone MD Work Phone: [facility] 12-06-2015 influenza, high dose seasonal, preservative-free Lizy Capone MD Work Phone: [facility] 02-26-2015 pneumococcal conjuga te vaccine, 13 valent Lizy Capone MD Work Phone: [facility] 12-30-2014 influenza, high dose seasonal, preservative-free Lizy Capone MD Work Phone: [facility] 02-02-2012 influenza virus vacc ine, unspecified formulation Lizy Capone MD Work Phone: [facility] 02-02-2012 pneumococcal polysaccharide vaccine, 23 valent Lizy Capone MD Work Phone: [facility] 02-21-2010 influenza virus vacc ine, unspecified formulation Lizy Capone MD Work Phone: [facility] 05-17-2009 zoster vaccine, live Lizy chavis MD Work Phone: [facility] 02-03-2008 influenza virus vacc ine, unspecified formulation Lizy Capone MD Work Phone: [facility] 02-04-2007 influenza virus vacc ine, unspecified formulation Lizy Capone MD Work Phone: [facility] Work Phone: 01-06-2007 pneumococcal polysaccharide vaccine, 23 valent Lizy Capone MD Work Phone: [facility] 02-03-2006 influenza virus vacc ine, whole virus Lizy Capone MD Work Phone: [facility] Work Phone: 01-30-2005 influenza virus vacc ine, whole virus Lizy Capone MD Work Phone: [facility] Work Phone: 01-06-2005 pneumococcal conjuga te vaccine, 7 valent Lizy Capone MD Work Phone: [facility] Work Phone: 12-26-1999 tetanus toxoid, adsorbed Shirley Capone MD Work Phone: [facility] Work Phone: Payers Date Payer Category Payer Medicare MEDICARE MEDICAR E A AND B [id number] 2008-Present [phone] [place] [address] Medicare [id number] 2008 Medicare MEDICARE MEDICAR E A AND B [id number] 2008-Present [phone] [place] [address] Medicare [id number] 2008 Medicare [id number] 2008 Unknown [facility] [id number] 2008-Present [address] [place] [address] Indemnity [id number] 1998 Unknown [id number] 1998 Unknown [id number] Social History Date Type Detail Facility Start: 04-27-2017 End: 01-02-2022 Tobacco smoking status NHIS Ex-smoker [facility] End: 04-06-1951 History of tobacco use Current smoker [facility] Work Phone: End: 04-06-1951 History of tobacco use Cigarette Smoker [facility] Work Phone: Start: 07-16-2021 End: 06-02-2023 Alcohol intake Current drinker of alcohol (finding) [facility] Start: 11-18-2016 History SDOH Alcohol Comment ocas glass of wine [facility] Start: 1940 Sex Assigned At Not on file [facility] Start: 07-06-2021 End: 01-30-2022 Exposure to SARS-CoV-2 (event) Not sure [facility] Start: 04-27-2017 End: 09-26-2022 Cigarettes smoked current (pack per day) - Reported 0.3 [facility] Start: 04-27-2017 End: 01-02-2022 Tobacco use and exposure Smokeless tobacco non-user [facility] Start: 11-28-2021 History SDOH Alcohol Comment occasionally [facility] Start: 09-26-2022 End: 10-16-2022 Tobacco use panel [facility] Adult Depression Screening Assessment 0 [facility] Medical Equipment Procedure Code Equipment Code Equipment Origin al Text Equipment Identifier Dates Anchr Sut 4.5mm Pshlk Spnl - [id number] Start: 04-24-2011 Clinical Notes 11-24-2016 to [...] to take for RFA. Instructed patient to picket labor union and bring to appointment as it must be taken under the supervision of our clinical staff. Also instructed patient to arrive 45 minutes early to appointment and that construction driver must stay for the entirety of [...] Yes 9. Does this procedure require a construction driver? Yes If yes, has patient been notified that a construction driver is needed and must be present [...] Jennifer De Leon documented in this encounter [facility] 06-02-2023 Note HNO ID: [id number] Author: REBEKAH ALEXANDER APRN.CJ Service: ? Author [...] visit. Either the patient or their legal digital sales representative has been informed of the risks [...] CONDYLEANDPLATU MEDIALANDLAT COMPARTMENTS 1990 bilateral total knee s([place]) ARTHRP KNE CONDYLEANDPLATU MEDIALANDLAT COMPARTMENTS 10/24/04 bilateral total knee revisions DELIVERY ONLY , low cervical CHOLECYSTECTOMY COLONOSCOPY FLX DX W/COLLJ SPEC WHEN PFRMD 11/17/2017 Colonoscopy DEBRIDEMENT SUBCUTANEOUS TISSUE 20 SQ CM/< 02/17/07 LEFT LEG DEBRIDEMENT SUBCUTANEOUS TISSUE 20 SQ CM/< [id number] LEFT LEG DEBRIDEMENT SUBCUTANEOUS TISSUE 20 SQ CM/< [id number] LEFT LEG DEBRIDEMENT SUBCUTANEOUS TISSUE 20 SQ CM/< [id number] LEFT LEG DEBRIDEMENT SUBCUTANEOUS TISSUE 20 SQ CM/< [id number] LEFT LEG DEBRIDEMENT SUBCUTANEOUS TISSUE 20 SQ [...] mg 24 hr tablet Take by mouth. Twqjqgvdbfi-Yxjiipytp-Xwb C-Mn (GLUCOSAMINE CHONDROITIN MAXSTR) 500-400 mg cap Take 1 capsule by mouth three times daily. COMPOUNDED PRESCRIPTION Stair lift DAILY-LUISITO tablet TAKE 1 TABLET BY MOUTH ONCE DAILY. soegpyz-fcmoshzki-dhepseo D3 (CALCIUM 500+D) 500 mg(1,250m (more content not included)... [facility] 06-02-2023 History of Presen t illness Narrative VIRTUAL VISIT PROGRESS NOTE This is a virtual visit using Audio Only Visit. It required patient-provider interaction for the medical decision making as documented below. I have communicated my name and active licensure. The patient's identity and physical location were verified at the time of this visit. Either the patient or their legal digital sales representative has been informed of the risks [...] CONDYLE&PLATU MEDIAL&LAT COMPARTMENTS 1990 bilateral total knee s([place]) ARTHRP KNE CONDYLE&PLATU MEDIAL&LAT COMPARTMENTS 10/24/04 bilateral total knee revisions DELIVERY ONLY , low cervical CHOLECYSTECTOMY COLONOSCOPY FLX DX W/COLLJ SPEC WHEN PFRMD 11/17/2017 Colonoscopy DEBRIDEMENT SUBCUTANEOUS TISSUE 20 SQ CM/< 02/17/07 LEFT LEG DEBRIDEMENT SUBCUTANEOUS TISSUE 20 SQ CM/< [id number] LEFT LEG DEBRIDEMENT SUBCUTANEOUS TISSUE 20 SQ CM/< [id number] LEFT LEG DEBRIDEMENT SUBCUTANEOUS TISSUE 20 SQ CM/< [id number] LEFT LEG DEBRIDEMENT SUBCUTANEOUS TISSUE 20 SQ CM/< [id number] LEFT LEG DEBRIDEMENT SUBCUTANEOUS TISSUE 20 SQ [...] mg 24 hr tablet Take by mouth. Aqeenqloucf-Zkrbydxgz-Qig C-Mn (GLUCOSAMINE CHONDROITIN MAXSTR) 500-400 mg cap Take 1 capsule by mouth three times daily. COMPOUNDED PRESCRIPTION Stair lift DAILY-LUISITO tablet TAKE 1 TABLET BY MOUTH ONCE DAILY. brmooxy-qrdxnxkrf-usikevf D3 (CALCIUM 500+D) 500 mg(1,250mg) -200 unit [...] which included preparing to see the patient, zqqf-bl-opxh patient care, completing clinical documentation, and ordering medications, tests, or procedures Rebekah Alexander APRN.CJ I have communicated my name and active licensure. The patient's identity and physical location were verified at the time of this visit. Either the patient or their legal digital sales representative has been informed of the risks and benefits of -- and alternatives to -- treatment through a remote evaluation and consents to proceed with the evaluation remotely. documented in this encounter [facility] 06-02-2023 Instructions Rebekah Alexander APRN.MANUFACTURE SPECIALIST - 06/02/2023 7:01 AM EST Ice and heat as tolerated Activity as tolerated documented in this encounter [facility] 05-20-2023 Miscellaneous Notes Spoke with patient following up from procedure. Patient states they are doing well, no questions or concerns at this time. Jorje Nagel LPN documented in this encounter [facility] 05-18-2023 Note HNO ID: [id number] Author: CAROLANN MARX LPN Service: ? Author [...] ambulatory method. Patient left in good condition. [facility] 05-18-2023 Note HNO ID: [id number] Author: ROQUE JACKSON MD Service: ? Author Type: Physician Type: Progress Notes Filed: 05/18/2023 13:48 Note Text: [facility] [place] [facility] Patient name: Ting Vega Date of : 1940 Today's date: 05/18/2023 Purpose: Ultrasound-guided injection Supply Assistant: Roque Jackson M.D. MLuis FernandoB.A Diagnosis: (M19.011, [...] or double vision) Respiratory: Negative (No Cough, Zymtdszva-nl-lrlelh, Dyspnea on exertion, wheezing) Cardiovascular: Negative (No [...] and thrombophlebitis of femoral vein (deep) (superficial) ([facility]) Unspecified sleep apnea PAST SURGICAL HISTORY Procedure Laterality Date ANESTHESIA HERNIA REPAIR LOWER ABDOMEN NOS 04/2004,05/11 gortex put in on 05/11 then taken out06/08 ARTHRP KNE CONDYLEANDPLATU MEDIALANDLAT COMPARTMENTS 1990 bilateral total knee s([place]) ARTHRP KNE CONDYLEANDPLATU MEDIALANDLAT COMPARTMENTS 10/24/04 bilateral total knee revisions DELIVERY ONLY , low cervical CHOLECYSTECTOMY COLONOSCOPY FLX DX W/COLLJ SPEC WHEN PFRMD 11/17/2017 Colonoscopy DEBRIDEMENT SUBCUTANEOUS TISSUE 20 SQ CM/< 02/17/07 LEFT LEG DEBRIDEMENT SUBCUTANEOUS TISSUE 20 SQ CM/< [id number] LEFT LEG DEBRIDEMENT SUBCUTANEOUS TISSUE 20 SQ CM/< [id number] LEFT LEG DEBRIDEMENT SUBCUTANEOUS TISSUE 20 SQ CM/< [id number] LEFT LEG DEBRIDEMENT SUBCUTANEOUS TISSUE 20 SQ CM/< [id number] LEFT LEG DEBRIDEMENT SUBCUTANEOUS TISSUE 20 SQ [...] mg 24 hr (more content not included)... [facility] 05-18-2023 Note HNO ID: [id number] Author: RAHEEL CANO LPN Service: ? Author [...] suicidal ideas. The patient is not nervous/anxious. [facility] 05-18-2023 Instructions Carolann Marx LPN - [...] care and why. documented in this encounter [facility] 05-18-2023 History of Presen t illness Narrative [...] in good condition. [facility] Patient name: Ting Vega Date of : 1940 Today's date: 05/18/2023 Purpose: Ultrasound-guided injection Supply Assistant: Roque Jackson M.D., M.B.A Diagnosis: (M19.011, M19.012) [...] or double vision) Respiratory: Negative (No Cough, Gtirirbfs-om-whigad, Dyspnea on exertion, wheezing) Cardiovascular: Negative (No [...] and thrombophlebitis of femoral vein (deep) (superficial) ([facility]) Unspecified sleep apnea PAST SURGICAL HISTORY Procedure Laterality Date ANESTHESIA HERNIA REPAIR LOWER ABDOMEN NOS 04/2004,05/11 gortex put in on 05/11 then taken out06/08 ARTHRP KNE CONDYLE&PLATU MEDIAL&LAT COMPARTMENTS 1990 bilateral total knee s([place]) ARTHRP KNE CONDYLE&PLATU MEDIAL&LAT COMPARTMENTS 10/24/04 bilateral total knee revisions DELIVERY ONLY , low cervical CHOLECYSTECTOMY COLONOSCOPY FLX DX W/COLLJ SPEC WHEN PFRMD 11/17/2017 Colonoscopy DEBRIDEMENT SUBCUTANEOUS TISSUE 20 SQ CM/< 02/17/07 LEFT LEG DEBRIDEMENT SUBCUTANEOUS TISSUE 20 SQ CM/< [id number] LEFT LEG DEBRIDEMENT SUBCUTANEOUS TISSUE 20 SQ CM/< [id number] LEFT LEG DEBRIDEMENT SUBCUTANEOUS TISSUE 20 SQ CM/< [id number] LEFT LEG DEBRIDEMENT SUBCUTANEOUS TISSUE 20 SQ CM/< [id number] LEFT LEG DEBRIDEMENT SUBCUTANEOUS TISSUE 20 SQ [...] mg 24 hr tablet Take by mouth. Udivvsuzejd-Zvnessgko-Pwh C-Mn (GLUCOSAMINE CHONDROITIN MAXSTR) 500-400 mg cap Take 1 capsule by mouth three times daily. COMPOUNDED PRESCRIPTION Stair lift DAILY-LUISITO tablet TAKE 1 TABLET BY MOUTH ONCE DAILY. ctyksjz-yrkitribh-vyziwdu D3 (CALCIUM 500+D) 500 mg(1,250mg) -200 unit [...] appropriate Assessment and Plan: As noted above [place] protocol documentation / Pre-Procedure Checklist: Consent: Obtained [...] [facility] Review of Systems Constitutional: Negative for activity change, appetite change, chills and fever. Genitourinary: Negative for difficulty urinating. Musculoskeletal: Positive for arthralgias and gait problem. Negative for back pain, joint swelling, myalgias, neck pain and neck stiffness. Neurological: Negative for weakness, numbness and headaches. Psychiatric/Behavioral: Negative for dysphoric mood, sleep disturbance and suicidal ideas. The patient is not nervous/anxious. documented in this encounter [facility] 05-18-2023 Nurse Note Procedure to be performed: Unilateral Left SUPRASCAPULAR NERVE BLOCK Patient was wheeled on stretcher from pre op bay to procedure room and assisted onto the procedure tablePatient s procedure was performed in an [facility] Procedure room. Pause completed at each level [...] allergies Procedure Start: 1324 Procedure End: 1326 Regional Vice President Surgical Sales's Name: MELLISA Are you on a blood [...] receive one? N documented in this encounter [facility] 04-16-2023 Note HNO ID: [id number] Author: KALEIGH MEEKS MA Service: ? Author Type: It Security Architect Type: Progress Notes Filed: 04/16/2023 08:43 Note [...] suicidal ideas. The patient is not nervous/anxious. [facility] 04-15-2023 Note HNO ID: [id number] Author: MIRYAM WELLS APRN.MANUFACTURE SPECIALIST Service: ? Author Type: Nurse Practitioner Type: [...] follow up Cold Symptoms: Was seen in [facility] 03/31/2023, chest xray normal, negative flu/covid/RSV. [...] and thrombophlebitis of femoral vein (deep) (superficial) ([facility]) Unspecified sleep apnea PAST SURGICAL HISTORY Procedure Laterality Date ANESTHESIA HERNIA REPAIR LOWER ABDOMEN NOS 04/2004,05/11 gortex put in on 05/11 then taken out06/08 ARTHRP KNE CONDYLEANDPLATU MEDIALANDLAT COMPARTMENTS 1990 bilateral total knee s([place]) ARTHRP KNE CONDYLEANDPLATU MEDIALANDLAT COMPARTMENTS 10/24/04 bilateral total knee revisions DELIVERY ONLY , low cervical CHOLECYSTECTOMY COLONOSCOPY FLX DX W/COLLJ SPEC WHEN PFRMD 11/17/2017 Colonoscopy DEBRIDEMENT SUBCUTANEOUS TISSUE 20 SQ CM/< 02/17/07 LEFT LEG DEBRIDEMENT SUBCUTANEOUS TISSUE 20 SQ CM/< [id number] LEFT LEG DEBRIDEMENT SUBCUTANEOUS TISSUE 20 SQ CM/< [id number] LEFT LEG DEBRIDEMENT SUBCUTANEOUS TISSUE 20 SQ CM/< [id number] LEFT LEG DEBRIDEMENT SUBCUTANEOUS TISSUE 20 SQ CM/< [id number] LEFT LEG DEBRIDEMENT SUBCUTANEOUS TISSUE 20 SQ [...] mg 24 hr tablet Take by mouth. Gsmomhcrgxw-Ybowglogp-Xoz C-Mn (GLUCOSAMINE CHONDROITIN MAXSTR) 500-400 mg cap Take 1 capsu (more content not included)... [facility] 03-31-2023 Note HNO ID: [id number] Author: Liz Wen PA-C Service: ? Author Type: Physician Systems Analysis Manager Type: Progress Notes Filed: 03/31/2023 11:49 AM Note Text: This note was created using [employer]. Subjective Ting Vega is a 82 year [...] mg 24 hr tablet Take by mouth. Kxolxoskvcl-Dukqmoqpn-Lax C-Mn (GLUCOSAMINE CHONDROITIN MAXSTR) 500-400 mg cap Take 1 capsule by mouth three times daily. 90 capsule 11 COMPOUNDED PRESCRIPTION Stair lift 1 Device 0 DAILY-LUISITO tablet TAKE 1 TABLET BY MOUTH ONCE DAILY. 30 tablet 11 kgekeeg-auikdkcdw-kvwmkjj D3 (CALCIUM 500+D) 500 mg(1,250mg) -200 unit [...] CONDYLEANDPLATU MEDIALANDLAT COMPARTMENTS 1990 bilateral total knee s([place]) ARTHRP KNE CONDYLEANDPLATU MEDIALANDLAT COMPARTMENTS 10/24/04 bilateral total knee revisions DELIVERY ONLY , low cervical CHOLECYSTECTOMY COLONOSCOPY FLX DX W/COLLJ SPEC WHEN PFRMD 11/17/2017 Colonoscopy DEBRIDEMENT SUBCUTANEOUS TISSUE 20 SQ CM/< 02/17/07 LEFT LEG DEBRIDEMENT SUBCUTANEOUS TISSUE 20 SQ CM/< [id number] LEFT LEG DEBRIDEMENT SUBCUTANEOUS TISSUE 20 SQ CM/< [id number] LEFT LEG DEBRIDEMENT SUBCUTANEOUS TIS (more content not included)... [facility] 03-31-2023 Note HNO ID: [id number] Author: Latia Weston RT(R) Service: Radiology Author [...] RT Mina(R) March 31, 2023 11:25 AM [facility] 03-31-2023 Note HNO ID: [id number] Author: ROQUE JACKSON MD Service: ? Author Type: Physician Type: Progress Notes Filed: 04/16/2023 08:43 Note Text: [facility] Today's Date: 04/16/2023 Last visit: 01/15/2023 [...] current dose Flexeril 10mg TID PRN Functional Baptism: No changes-continue current regimen Additional Studies: X-ray [...] - Initial HPI (Obtained by Avis Marrufo APRN.MANUFACTURE SPECIALIST ). From 03/2022 - She previously inquired [...] complaint(s)): Neuropathics: Ne (more content not included)... [facility] 03-02-2023 Note HNO ID: [id number] Author: Rebekah Alexander APRN.MANUFACTURE SPECIALIST Service: ? Author Type: Nurse Practitioner Type: [...] visit. Either the patient or their legal digital sales representative has been informed of the risks [...] and thrombophlebitis of femoral vein (deep) (superficial) ([facility]) Unspecified sleep apnea PAST SURGICAL HISTORY Procedure Laterality Date ANESTHESIA HERNIA REPAIR LOWER ABDOMEN NOS 04/2004,05/11 gortex put in on 05/11 then taken out06/08 ARTHRP KNE CONDYLEANDPLATU MEDIALANDLAT COMPARTMENTS 1990 bilateral total knee s([place]) ARTHRP KNE CONDYLEANDPLATU MEDIALANDLAT COMPARTMENTS 10/24/04 bilateral total knee revisions DELIVERY ONLY , low cervical CHOLECYSTECTOMY COLONOSCOPY FLX DX W/COLLJ SPEC WHEN PFRMD 11/17/2017 Colonoscopy DEBRIDEMENT SUBCUTANEOUS TISSUE 20 SQ CM/< 02/17/07 LEFT LEG DEBRIDEMENT SUBCUTANEOUS TISSUE 20 SQ CM/< [id number] LEFT LEG DEBRIDEMENT SUBCUTANEOUS TISSUE 20 SQ CM/< [id number] LEFT LEG DEBRIDEMENT SUBCUTANEOUS TISSUE 20 SQ CM/< [id number] LEFT LEG DEBRIDEMENT SUBCUTANEOUS TISSUE 20 SQ CM/< [id number] LEFT LEG DEBRIDEMENT SUBCUTANEOUS TISSUE 20 SQ [...] mg 24 hr tablet Take by mouth. Vvhtrhmdrul-Urxeipahk-Qbo C-Mn (GLUCOSAMINE CHONDROITIN MAXSTR) 500-400 mg cap Take 1 capsule by mouth three times daily. COMPOUNDED PRESCRIPTION Stair lift DAILY-LUISITO tablet TAKE 1 TABLET BY MOUTH ONCE DAILY. pgkgkvb-ksnmegcoo-hksjaaq D3 (CALCIUM 500+D) 500 mg(1,250mg) -200 unit per tablet Take 1 tablet by mouth twice daily with meals. vitamin b complex (B COMPLETE) tab Take 1 tablet by mouth once daily. hydrocortisone (ANUSOL-HC) 2.5 % rectal cream 1 application by RECTAL route twice daily. (more content not included)... [facility] 03-02-2023 History of Presen t illness Narrative VIRTUAL VISIT PROGRESS NOTE This is a virtual visit using Audio Only Visit. It required patient-provider interaction for the medical decision making as documented below. I have communicated my name and active licensure. The patient's identity and physical location were verified at the time of this visit. Either the patient or their legal digital sales representative has been informed of the risks [...] CONDYLE&PLATU MEDIAL&LAT COMPARTMENTS 1990 bilateral total knee s([place]) ARTHRP KNE CONDYLE&PLATU MEDIAL&LAT COMPARTMENTS 10/24/04 bilateral total knee revisions DELIVERY ONLY , low cervical CHOLECYSTECTOMY COLONOSCOPY FLX DX W/COLLJ SPEC WHEN PFRMD 11/17/2017 Colonoscopy DEBRIDEMENT SUBCUTANEOUS TISSUE 20 SQ CM/< 02/17/07 LEFT LEG DEBRIDEMENT SUBCUTANEOUS TISSUE 20 SQ CM/< [id number] LEFT LEG DEBRIDEMENT SUBCUTANEOUS TISSUE 20 SQ CM/< [id number] LEFT LEG DEBRIDEMENT SUBCUTANEOUS TISSUE 20 SQ CM/< [id number] LEFT LEG DEBRIDEMENT SUBCUTANEOUS TISSUE 20 SQ CM/< [id number] LEFT LEG DEBRIDEMENT SUBCUTANEOUS TISSUE 20 SQ [...] mg 24 hr tablet Take by mouth. Qngahmevlst-Dxrrwgqcz-Lyx C-Mn (GLUCOSAMINE CHONDROITIN MAXSTR) 500-400 mg cap Take 1 capsule by mouth three times daily. COMPOUNDED PRESCRIPTION Stair lift DAILY-LUISITO tablet TAKE 1 TABLET BY MOUTH ONCE DAILY. devymsl-pjycydjhf-epesbqd D3 (CALCIUM 500+D) 500 mg(1,250mg) -200 unit [...] which included preparing to see the patient, xfwi-ui-fghh patient care, and completing clinical documentation Rebekah Alexander APRN.CJ I have communicated my name and active licensure. The patient's identity and physical location were verified at the time of this visit. Either the patient or their legal digital sales representative has been informed of the risks and benefits of -- and alternatives to -- treatment through a remote evaluation and consents to proceed with the evaluation remotely. documented in this encounter [facility] 03-02-2023 Instructions Rebekah Alexander APRN.CNP - 03/02/2023 6:59 AM EST Ice and heat as tolerated Activity as tolerated documented in this encounter [facility] 02-16-2023 Note HNO ID: [id number] Author: Octavio Robbins LPN Service: ? Author [...] suicidal ideas. The patient is not nervous/anxious. [facility] 02-16-2023 Note HNO ID: [id number] Author: Roque Jackson MD Service: ? Author Type: Physician Type: Progress Notes Filed: 02/16/2023 12:55 PM Note Text: [facility] [place] [facility], [facility] Date: 02/16/2023 Patient name: Ting Vega [...] or double vision) Respiratory: Negative (No Cough, Gxvniined-rf-bczozq, Dyspnea on exertion, wheezing) Cardiovascular: Negative (No [...] CONDYLEANDPLATU MEDIALANDLAT COMPARTMENTS 1990 bilateral total knee s([place]) ARTHRP KNE CONDYLEANDPLATU MEDIALANDLAT COMPARTMENTS 10/24/04 bilateral total knee revisions DELIVERY ONLY , low cervical CHOLECYSTECTOMY COLONOSCOPY FLX DX W/COLLJ SPEC WHEN PFRMD 11/17/2017 Colonoscopy DEBRIDEMENT SUBCUTANEOUS TISSUE 20 SQ CM/< 02/17/07 LEFT LEG DEBRIDEMENT SUBCUTANEOUS TISSUE 20 SQ CM/< [id number] LEFT LEG DEBRIDEMENT SUBCUTANEOUS TISSUE 20 SQ CM/< [id number] LEFT LEG DEBRIDEMENT SUBCUTANEOUS TISSUE 20 SQ CM/< [id number] LEFT LEG DEBRIDEMENT SUBCUTANEOUS TISSUE 20 SQ CM/< [id number] LEFT LEG DEBRIDEMENT SUBCUTANEOUS TISSUE 20 SQ [...] by mouth. Glucosamine-Chondroit (more content not included)... [facility] 02-16-2023 Nurse Note Order has been [...] tablePatient s procedure was performed in an [facility] Procedure room. Pause completed at each level [...] allergies Procedure Start: 1149 Procedure End: 1157 Regional Vice President Surgical Sales's Name: N/A Are you on a blood [...] receive one? n documented in this encounter [facility] 02-16-2023 Instructions Raheel Cano LPN - 02/16/2023 [...] care and why. documented in this encounter [facility] 02-16-2023 History of Presen t illness Narrative [...] is not nervous/anxious. [facility] Date: 02/16/2023 Patient name: Ting Vega Physician [...] or double vision) Respiratory: Negative (No Cough, Bmsnmvnlk-px-mqxlfx, Dyspnea on exertion, wheezing) Cardiovascular: Negative (No [...] CONDYLE&PLATU MEDIAL&LAT COMPARTMENTS 1990 bilateral total knee s([place]) ARTHRP KNE CONDYLE&PLATU MEDIAL&LAT COMPARTMENTS 10/24/04 bilateral total knee revisions DELIVERY ONLY , low cervical CHOLECYSTECTOMY COLONOSCOPY FLX DX W/COLLJ SPEC WHEN PFRMD 11/17/2017 Colonoscopy DEBRIDEMENT SUBCUTANEOUS TISSUE 20 SQ CM/< 02/17/07 LEFT LEG DEBRIDEMENT SUBCUTANEOUS TISSUE 20 SQ CM/< [id number] LEFT LEG DEBRIDEMENT SUBCUTANEOUS TISSUE 20 SQ CM/< [id number] LEFT LEG DEBRIDEMENT SUBCUTANEOUS TISSUE 20 SQ CM/< [id number] LEFT LEG DEBRIDEMENT SUBCUTANEOUS TISSUE 20 SQ CM/< [id number] LEFT LEG DEBRIDEMENT SUBCUTANEOUS TISSUE 20 SQ [...] mg 24 hr tablet Take by mouth. Cpwjjhztsmx-Txggfohci-Iuw C-Mn (GLUCOSAMINE CHONDROITIN MAXSTR) 500-400 mg cap Take 1 capsule by mouth three times daily. COMPOUNDED PRESCRIPTION Stair lift DAILY-LUISITO tablet TAKE 1 TABLET BY MOUTH ONCE DAILY. rhdvokp-qdotolewd-wtzunlp D3 (CALCIUM 500+D) 500 mg(1,250mg) -200 unit [...] appropriate Assessment and Plan: As noted above [place] protocol documentation / Pre-Procedure Checklist: Consent: Obtained [...] [facility] documented in this encounter [facility] 01-15-2023 Note HNO ID: [id number] Author: Allison Garcia RT(R) Service: ? Author [...] RT Eboni(R) January 15, 2023 11:24 AM [facility] 01-15-2023 Note HNO ID: [id number] Author: Kerrie Guthrie LPN Service: ? Author [...] suicidal ideas. The patient is not nervous/anxious. [facility] 01-15-2023 History of Presen t illness [...] 2023 11:24 AM documented in this encounter [facility] 01-15-2023 Miscellaneous Notes Procedure(s) being scheduled: 1.Are [...] No 9. Does this procedure require a construction driver? No If yes, has patient been notified that a construction driver is needed and must be present [...] Jennifer De Leon documented in this encounter [facility] 01-15-2023 History of Presen t illness Narrative [...] not included. [facility] Name: Ting Vega : 1940 Purpose: [...] bony destructive process. Lumbar: There are five uxr-bxf-jeilbja lumbar vertebrae. No acute fracture or subluxations [...] report bilateral flank pain. She states her industrial equipment wirer, PCP and butcher scullion advised her pain is coming from her [...] current dose Flexeril 10mg TID PRN Functional Baptism: No changes-continue current regimen Additional Studies: X-ray [...] MD Pain Management [facility] documented in this encounter [facility] 01-14-2023 Note HNO ID: [id number] Author: Roque Jackson MD Service: ? Author Type: Physician Type: Progress Notes Filed: 01/15/2023 8:58 AM Note Text: [facility] Name: Ting Vega : 1940 Purpose: [...] narrowing. Otherwise, the (more content not included)... [facility] 12-24-2022 Miscellaneous Notes Face sheet, consult, and last OV notes faxed to Dr. Gilmore's office in [place]. Miryam Wells APRN.MANUFACTURE SPECIALIST Patient notified of results, verbalizes understanding of instructions. Pt stated she would like to see Dr. Albrecht. Minna Blue LPN Can you please call the patient and let her know I reviewed her lab results. Kidney function has decreased significantly. I would recommend that she stop taking Lasix at this time. I know she was following with nephrology, Dr. Acsota, however if she would like to establish care with a new butcher scullion I would recommend [facility], Dr. Gilmore. Please let me know what she prefers. If she would like we can recheck kidney function in 2 to 4 weeks after stopping Lasix. Thank you. Miryam Wells APRN.MANUFACTURE SPECIALIST documented in this encounter [facility] 12-22-2022 Note HNO ID: [id number] Author: Miryam Wells APRN.CJ Service: ? Author [...] Lasix daily, following with Nephrology, Dr. Acosta [facility]. Had decreased GFR in October,, Following [...] CONDYLEANDPLATU MEDIALANDLAT COMPARTMENTS 1990 bilateral total knee s([place]) ARTHRP KNE CONDYLEANDPLATU MEDIALANDLAT COMPARTMENTS 10/24/04 bilateral total knee revisions DELIVERY ONLY , low cervical CHOLECYSTECTOMY COLONOSCOPY FLX DX W/COLLJ SPEC WHEN PFRMD 11/17/2017 Colonoscopy DEBRIDEMENT SUBCUTANEOUS TISSUE 20 SQ CM/< 02/17/07 LEFT LEG DEBRIDEMENT SUBCUTANEOUS TISSUE 20 SQ CM/< [id number] LEFT LEG DEBRIDEMENT SUBCUTANEOUS TISSUE 20 SQ CM/< [id number] LEFT LEG DEBRIDEMENT SUBCUTANEOUS TISSUE 20 SQ CM/< [id number] LEFT LEG DEBRIDEMENT SUBCUTANEOUS TISSUE 20 SQ CM/< [id number] LEFT LEG DEBRIDEMENT SUBCUTANEOUS TISSUE 20 SQ [...] Take 40 mg by mouth once daily.) Ridhcmcfbzj-Ysjaywftj-Fzd C-Mn (GLUCOSAMINE CHONDROITIN MAXSTR) 500-400 mg cap Take 1 capsule by mouth three times daily. COMPOUNDED PRESCRIPTION Stair lift DAILY-LUISITO tablet TAKE 1 TABLET BY MOUTH ONCE DAILY. dtrrahn-ubpbymmik-grjnsix D3 (CALCIUM 500+D) 500 mg(1,250mg) -200 unit per tablet [place] (more content not included)... [facility] 12-22-2022 Instructions Miryam Wells APRN.CNP - 12/22/2022 9:15 AM EDT Get labs completed Stay well hydrated. Continue to take all medication as prescribed. Continue at home exercises at home for shoulder pain, any worsening symptoms contact the office. Keep up coming appointment Dr. Jackson. Elevate the legs when possible. Follow up in 3 months or sooner pending test results. documented in this encounter [facility] 12-22-2022 History of Presen t illness Narrative [...] Lasix daily, following with Nephrology, Dr. Acosta [facility]. Had decreased GFR in October,, Following [...] and thrombophlebitis of femoral vein (deep) (superficial) ([facility]) Unspecified sleep apnea PAST SURGICAL HISTORY Procedure Laterality Date ANESTHESIA HERNIA REPAIR LOWER ABDOMEN NOS 04/2004,05/11 gortex put in on 05/11 then taken out06/08 ARTHRP KNE CONDYLE&PLATU MEDIAL&LAT COMPARTMENTS 1990 bilateral total knee s([place]) ARTHRP KNE CONDYLE&PLATU MEDIAL&LAT COMPARTMENTS 10/24/04 bilateral total knee revisions DELIVERY ONLY , low cervical CHOLECYSTECTOMY COLONOSCOPY FLX DX W/COLLJ SPEC WHEN PFRMD 11/17/2017 Colonoscopy DEBRIDEMENT SUBCUTANEOUS TISSUE 20 SQ CM/< 02/17/07 LEFT LEG DEBRIDEMENT SUBCUTANEOUS TISSUE 20 SQ CM/< [id number] LEFT LEG DEBRIDEMENT SUBCUTANEOUS TISSUE 20 SQ CM/< [id number] LEFT LEG DEBRIDEMENT SUBCUTANEOUS TISSUE 20 SQ CM/< [id number] LEFT LEG DEBRIDEMENT SUBCUTANEOUS TISSUE 20 SQ CM/< [id number] LEFT LEG DEBRIDEMENT SUBCUTANEOUS TISSUE 20 SQ [...] Take 40 mg by mouth once daily.) Ipfdqhjurzz-Oppkavpoz-Stp C-Mn (GLUCOSAMINE CHONDROITIN MAXSTR) 500-400 mg cap Take 1 capsule by mouth three times daily. COMPOUNDED PRESCRIPTION Stair lift DAILY-LUISITO tablet TAKE 1 TABLET BY MOUTH ONCE DAILY. ladxkcs-wchsrojgb-ilirimk D3 (CALCIUM 500+D) 500 mg(1,250mg) -200 unit [...] discussed and patient voices understanding. Miryam Wells APRN.MANUFACTURE SPECIALIST This note was partially generated using [employer] voice recognition system. Note was reviewed for accuracy. There may be minor misspellings or grammar miscues with Dragon voice recognition. documented in this encounter [facility] 12-04-2022 Miscellaneous Notes Patient notified rx sent to pharmacy Jud Mattson MA Refill for Cyclobenzaprine approved and sent to patient's preferred pharmacy. Roque Jackson III, MD, DENNIS PATIENT NEEDS REFILL SHE HAS AN APPOINTMENT 01/15/23 PLEASE ADVISE documented in this encounter [facility] 10-16-2022 Miscellaneous Notes Addended by: CELENA GALLEGOS on: 10/16/2022 10:30 AM Modules accepted: Orders documented in this encounter [facility] 10-16-2022 Note HNO ID: [id number] Author: Kerrie Guthrie LPN Service: ? Author [...] suicidal ideas. The patient is not nervous/anxious. [facility] 10-16-2022 Note HNO ID: [id number] Author: Roque Jackson MD Service: ? Author Type: Physician Type: Progress Notes Filed: 10/16/2022 8:17 AM Note Text: [facility] Name: Ting Vega : 1940 Purpose: 2 [...] likely hemangiomas. Multile (more content not included)... [facility] 10-16-2022 History of Presen t illness [...] not included. [facility] Name: Ting Vega : 1940 Purpose: [...] bony destructive process. Lumbar: There are five gxw-prr-oekgkbb lumbar vertebrae. No acute fracture or subluxations [...] report bilateral flank pain. She states her industrial equipment wirer, PCP and butcher scullion advised her pain is coming from her [...] incident The patient will be followed by digital sales representative from the company Additional tests, treatments, [...] current dose Flexeril 10mg TID PRN Functional Baptism: No changes-continue current regimen Additional Studies: None [...] MD Pain Management [facility] documented in this encounter [facility] 10-08-2022 Miscellaneous Notes The following approved medication [...] patient. Quynh Sexton documented in this encounter [facility] 10-02-2022 Note HNO ID: [id number] Author: Celia Crowell LPN Service: ? Author [...] suicidal ideas. The patient is not nervous/anxious. [facility] 10-02-2022 History of Presen t illness [...] not nervous/anxious. [facility] Date: 10/02/2022 Name: Ting Vega : 1940 Purpose: SPR lead(s) Removal Interval History: Ting Vega is an established patient at [facility], who presents today for removal of SPR [...] incident The patient will be followed by digital sales representative from the company Additional tests, treatments, or referrals: none Follow-up: For right lead removal in 2 weeks (10/16) Roque Jackson MD, DENNIS Pain [facility] Opened in error documented in this encounter [facility] 10-02-2022 Note HNO ID: [id number] Author: Roque Jackson MD Service: ? Author Type: Physician Type: Progress Notes Filed: 10/02/2022 10:12 AM Note Text: [facility] Date: 10/02/2022 Name: Ting Vega : 1940 Purpose: SPR lead(s) Removal Interval History: Ting Vega is an established patient at [facility] [place], who presents today for removal of SPR [...] incident The patient will be followed by digital sales representative from the company Additional tests, treatments, or referrals: none Follow-up: For right lead removal in 2 weeks (10/16) Roque Jackson MD, DENNIS Pain Management [facility] 10-01-2022 Note HNO ID: [id number] Author: Roque Jackson MD Service: ? Author Type: Physician Type: Progress Notes Filed: 10/02/2022 10:12 AM Note Text: Opened in error [facility] 09-26-2022 Note HNO ID: [id number] Author: Miryam Wells APRN.MANUFACTURE SPECIALIST Service: ? Author Type: Nurse Practitioner Type: [...] and thrombophlebitis of femoral vein (deep) (superficial) ([facility]) Unspecified sleep apnea PAST SURGICAL HISTORY Procedure Laterality Date ANESTHESIA HERNIA REPAIR LOWER ABDOMEN NOS 04/2004,05/11 gortex put in on 05/11 then taken out06/08 ARTHRP KNE CONDYLEANDPLATU MEDIALANDLAT COMPARTMENTS 1990 bilateral total knee s([place]) ARTHRP KNE CONDYLEANDPLATU MEDIALANDLAT COMPARTMENTS 10/24/04 bilateral total knee revisions DELIVERY ONLY , low cervical CHOLECYSTECTOMY COLONOSCOPY FLX DX W/COLLJ SPEC WHEN PFRMD 11/17/2017 Colonoscopy DEBRIDEMENT SUBCUTANEOUS TISSUE 20 SQ CM/< 02/17/07 LEFT LEG DEBRIDEMENT SUBCUTANEOUS TISSUE 20 SQ CM/< [id number] LEFT LEG DEBRIDEMENT SUBCUTANEOUS TISSUE 20 SQ CM/< [id number] LEFT LEG DEBRIDEMENT SUBCUTANEOUS TISSUE 20 SQ CM/< [id number] LEFT LEG DEBRIDEMENT SUBCUTANEOUS TISSUE 20 SQ CM/< [id number] LEFT LEG DEBRIDEMENT SUBCUTANEOUS TISSUE 20 SQ [...] daily. Take on empty stomach. For thyroid. Afhbldhoxkd-Pbahpdvje-Mrb C-Mn (GLUCOSAMINE CHONDROITIN MAXSTR) 500-400 mg cap Take 1 capsule by mouth three times daily. lisinopril-hydroCHLOROthiazide (PRINZIDE,ZESTORETIC) 10-12.5 mg per tablet Take 1 tablet by mouth once daily. COMPOUNDED PRESCRIPTION Stair lift DAILY-LUISITO tablet TAKE 1 TABLET BY MOUTH ONCE DAILY. ihtflrv-srcqrvknc-kunxbto D3 (CALCIUM 500+D) 500 mg(1,250mg) -200 unit per tablet Take 1 tablet by mouth twice daily with meals. vitamin b complex (B COMPLETE) tab Take 1 tablet by mouth once daily. hydrocortisone (ANUSOL-HC) 2.5 % rectal cream 1 application by RECTAL route twice daily. calcium acetate ( (more content not included)... [facility] 08-13-2022 Note HNO ID: [id number] Author: Jose Roberto Jimenes Service: ? Author Type: It Security Architect Type: Progress Notes Filed: 08/13/2022 3:43 PM [...] and thrombophlebitis of femoral vein (deep) (superficial) ([facility]) Unspecified sleep apnea PAST SURGICAL HISTORY Procedure Laterality Date ANESTHESIA HERNIA REPAIR LOWER ABDOMEN NOS 04/2004,05/11 gortex put in on 05/11 then taken out06/08 ARTHRP KNE CONDYLEANDPLATU MEDIALANDLAT COMPARTMENTS 1990 bilateral total knee s([place]) ARTHRP KNE CONDYLEANDPLATU MEDIALANDLAT COMPARTMENTS 10/24/04 bilateral total knee revisions DELIVERY ONLY , low cervical CHOLECYSTECTOMY COLONOSCOPY FLX DX W/COLLJ SPEC WHEN PFRMD 11/17/2017 Colonoscopy DEBRIDEMENT SUBCUTANEOUS TISSUE 20 SQ CM/< 02/17/07 LEFT LEG DEBRIDEMENT SUBCUTANEOUS TISSUE 20 SQ CM/< [id number] LEFT LEG DEBRIDEMENT SUBCUTANEOUS TISSUE 20 SQ CM/< [id number] LEFT LEG DEBRIDEMENT SUBCUTANEOUS TISSUE 20 SQ CM/< [id number] LEFT LEG DEBRIDEMENT SUBCUTANEOUS TISSUE 20 SQ CM/< [id number] LEFT LEG DEBRIDEMENT SUBCUTANEOUS TISSUE 20 SQ [...] daily. Take on empty stomach. For thyroid. Ihapiatykdh-Tlilclorq-Teb C-Mn (GLUCOSAMINE CHONDROITIN MAXSTR) 500-400 mg cap Take 1 capsule by mouth three times daily. lisinopril-hydroCHLOROthiazide (PRINZIDE,ZESTORETIC) 10-12.5 mg per tablet Take 1 tablet by mouth once daily. COMPOUNDED PRESCRIPTION Stair lift DAILY-LUISITO tablet TAKE 1 TABLET BY MOUTH ONCE DAILY. caemsrb-umdizwpjo-snskqnk D3 (CALCIUM 500+D) 500 mg(1,250mg) -200 unit [...] tablet twice d (more content not included)... [facility] 08-13-2022 Nurse Note Order has been [...] Time stop:1505 SPRINT endura PNS System Lot- [id number] 2023-11-05 [employer] System EXTERNAL PULSE GENERATOR Lot- [id number] 2023-11-05 [employer] end[employer] PNS System MICROLEAD 2.0 WITH ONEPASS INTRODUCER Lot- [id number] 2024-06-10 [employer] PNS System CABLES SINGLE-LEAD PROCEDURE Lot- [id number] 2024-05-08 Nurse : Amada Velasco LPN Date: [...] table. Patient s procedure was performed in [facility] procedure room. Pressure was applied to patient s injection site(s) and bleeding was minimal. Patient had no complaint of shortness of breath, dizziness, headache, numbness, tingling, weakness or complications from procedure. Patient was assisted from the procedure table onto the stretcher and wheeled into a post op bay. Patient was advised a Marqui Machine Cementer would be in for reprogramming. Patient was advised a clinician will be to obtain another set of vitals. Present in the room is: ROQUE JACKSON MD- Physician Amada Velasco - RUDDY Ferreira/ Thierno Lorenzo - SPRINT Machine Cementer AMADA SAUL - X-Ray Tech Comments: None Tolerated procedure well: Yes Regional Vice President Surgical Sales's Name: Cayla Are you on a blood [...] receive one? no documented in this encounter [facility] 08-13-2022 History of Presen t illness Narrative [...] CONDYLE&PLATU MEDIAL&LAT COMPARTMENTS 1990 bilateral total knee s([place]) ARTHRP KNE CONDYLE&PLATU MEDIAL&LAT COMPARTMENTS 10/24/04 bilateral total knee revisions DELIVERY ONLY , low cervical CHOLECYSTECTOMY COLONOSCOPY FLX DX W/COLLJ SPEC WHEN PFRMD 11/17/2017 Colonoscopy DEBRIDEMENT SUBCUTANEOUS TISSUE 20 SQ CM/< 02/17/07 LEFT LEG DEBRIDEMENT SUBCUTANEOUS TISSUE 20 SQ CM/< [id number] LEFT LEG DEBRIDEMENT SUBCUTANEOUS TISSUE 20 SQ CM/< [id number] LEFT LEG DEBRIDEMENT SUBCUTANEOUS TISSUE 20 SQ CM/< [id number] LEFT LEG DEBRIDEMENT SUBCUTANEOUS TISSUE 20 SQ CM/< [id number] LEFT LEG DEBRIDEMENT SUBCUTANEOUS TISSUE 20 SQ [...] daily. Take on empty stomach. For thyroid. Cdfyqfgorjc-Cdrcpzmjv-Oib C-Mn (GLUCOSAMINE CHONDROITIN MAXSTR) 500-400 mg cap Take 1 capsule by mouth three times daily. lisinopril-hydroCHLOROthiazide (PRINZIDE,ZESTORETIC) 10-12.5 mg per tablet Take 1 tablet by mouth once daily. COMPOUNDED PRESCRIPTION Stair lift DAILY-LUISITO tablet TAKE 1 TABLET BY MOUTH ONCE DAILY. lkspenx-qmxczyhbo-dxgiczr D3 (CALCIUM 500+D) 500 mg(1,250mg) -200 unit [...] visit. Physical Exam [facility] [place] [facility] Date: 08/13/2022 Patient name: Ting Vega Physician [...] or double vision) Respiratory: Negative (No Cough, Dndccyeya-sh-ejkabw, Dyspnea on exertion, wheezing) Cardiovascular: Negative (No [...] and thrombophlebitis of femoral vein (deep) (superficial) ([facility]) Unspecified sleep apnea PAST SURGICAL HISTORY Procedure Laterality Date ANESTHESIA HERNIA REPAIR LOWER ABDOMEN NOS 04/2004,05/11 gortex put in on 05/11 then taken out06/08 ARTHRP KNE CONDYLE&PLATU MEDIAL&LAT COMPARTMENTS 1990 bilateral total knee s([place]) ARTHRP KNE CONDYLE&PLATU MEDIAL&LAT COMPARTMENTS 10/24/04 bilateral total knee revisions DELIVERY ONLY , low cervical CHOLECYSTECTOMY COLONOSCOPY FLX DX W/COLLJ SPEC WHEN PFRMD 11/17/2017 Colonoscopy DEBRIDEMENT SUBCUTANEOUS TISSUE 20 SQ CM/< 02/17/07 LEFT LEG DEBRIDEMENT SUBCUTANEOUS TISSUE 20 SQ CM/< [id number] LEFT LEG DEBRIDEMENT SUBCUTANEOUS TISSUE 20 SQ CM/< [id number] LEFT LEG DEBRIDEMENT SUBCUTANEOUS TISSUE 20 SQ CM/< [id number] LEFT LEG DEBRIDEMENT SUBCUTANEOUS TISSUE 20 SQ CM/< [id number] LEFT LEG DEBRIDEMENT SUBCUTANEOUS TISSUE 20 SQ [...] daily. Take on empty stomach. For thyroid. Pdcuiozeknq-Ddjlllckc-Fph C-Mn (GLUCOSAMINE CHONDROITIN MAXSTR) 500-400 mg cap Take 1 capsule by mouth three times daily. lisinopril-hydroCHLOROthiazide (PRINZIDE,ZESTORETIC) 10-12.5 mg per tablet Take 1 tablet by mouth once daily. COMPOUNDED PRESCRIPTION Stair lift DAILY-LUISITO tablet TAKE 1 TABLET BY MOUTH ONCE DAILY. wxkjspt-kdxflhjzx-lrwxvfy D3 (CALCIUM 500+D) 500 mg(1,250mg) -200 unit [...] appropriate Assessment and Plan: As noted above [facility] protocol documentation / Pre-Procedure Checklist: Consent: Obtained [...] Test stimulation was conducted per the SPR digital sales representative successfully. The finder needle was then [...] programming and be discharged home with their construction driver. The patient was instructed to monitor [...] MBA [facility] Management [facility] [place] [facility] documented in this encounter [facility] 08-13-2022 Note HNO ID: [id number] Author: Roque Jackson MD Service: ? Author Type: Physician Type: Progress Notes Filed: 08/13/2022 3:43 PM Note Text: [facility] [place] [facility] Date: 08/13/2022 Patient name: Ting Vega Physician [...] or double vision) Respiratory: Negative (No Cough, Qyttzsoba-wk-ovddzt, Dyspnea on exertion, wheezing) Cardiovascular: Negative (No [...] and thrombophlebitis of femoral vein (deep) (superficial) ([facility]) Unspecified sleep apnea PAST SURGICAL HISTORY Procedure Laterality Date ANESTHESIA HERNIA REPAIR LOWER ABDOMEN NOS 04/2004,05/11 gortex put in on 05/11 then taken out06/08 ARTHRP KNE CONDYLEANDPLATU MEDIALANDLAT COMPARTMENTS 1990 bilateral total knee s([place]) ARTHRP KNE CONDYLEANDPLATU MEDIALANDLAT COMPARTMENTS 10/24/04 bilateral total knee revisions DELIVERY ONLY , low cervical CHOLECYSTECTOMY COLONOSCOPY FLX DX W/COLLJ SPEC WHEN PFRMD 11/17/2017 Colonoscopy DEBRIDEMENT SUBCUTANEOUS TISSUE 20 SQ CM/< 02/17/07 LEFT LEG DEBRIDEMENT SUBCUTANEOUS TISSUE 20 SQ CM/< [id number] LEFT LEG DEBRIDEMENT SUBCUTANEOUS TISSUE 20 SQ CM/< [id number] LEFT LEG DEBRIDEMENT SUBCUTANEOUS TISSUE 20 SQ CM/< [id number] LEFT LEG DEBRIDEMENT SUBCUTANEOUS TISSUE 20 SQ CM/< [id number] LEFT LEG DEBRIDEMENT SUBCUTANEOUS TISSUE 20 SQ [...] daily. Take on empty stomach. For thyroid. Lftdpaaevzt-Avrkiurkw-Voh C-Mn (GLUCOSAMINE CHONDROITIN MAXSTR) 500-400 mg cap Take 1 capsule by mouth three times daily. lisinopril-hydroCHLOROthiazide (PRINZIDE,ZESTORETIC) 10-12.5 mg per tablet Take 1 tablet by m (more content not included)... [facility] 08-04-2022 Miscellaneous Notes Please let Ms. Vega know that the right foot x-ray showed no fracture. Roque Jackson III, MD, DENNIS documented in this encounter [facility] 07-31-2022 Note HNO ID: [id number] Author: Kaleigh Meeks MA Service: ? Author Type: It Security Architect Type: Progress Notes Filed: 07/31/2022 9:08 AM [...] suicidal ideas. The patient is not nervous/anxious. [facility] 07-30-2022 Note HNO ID: [id number] Author: Jose Roberto Jimenes Service: ? Author Type: It Security Architect Type: Progress Notes Filed: 07/30/2022 3:48 PM [...] CONDYLEANDPLATU MEDIALANDLAT COMPARTMENTS 1990 bilateral total knee s([place]) ARTHRP KNE CONDYLEANDPLATU MEDIALANDLAT COMPARTMENTS 10/24/04 bilateral total knee revisions DELIVERY ONLY , low cervical CHOLECYSTECTOMY COLONOSCOPY FLX DX W/COLLJ SPEC WHEN PFRMD 11/17/2017 Colonoscopy DEBRIDEMENT SUBCUTANEOUS TISSUE 20 SQ CM/< 02/17/07 LEFT LEG DEBRIDEMENT SUBCUTANEOUS TISSUE 20 SQ CM/< [id number] LEFT LEG DEBRIDEMENT SUBCUTANEOUS TISSUE 20 SQ CM/< [id number] LEFT LEG DEBRIDEMENT SUBCUTANEOUS TISSUE 20 SQ CM/< [id number] LEFT LEG DEBRIDEMENT SUBCUTANEOUS TISSUE 20 SQ CM/< [id number] LEFT LEG DEBRIDEMENT SUBCUTANEOUS TISSUE 20 SQ [...] 30 tabletRfl: 2 mirabegron (MYRBETRIQ) 25 mg [id number] 1 tablet by mouth once daily.Disp: 30 [...] empty stomach. For thyroid.Disp: 90 tabletRfl: 3 Sleuzxocotr-Ovqrpogcl-Oga C-Mn (GLUCOSAMINE CHONDROITIN MAXSTR) 500-400 mg capTake 1 capsule by mouth three times daily.Disp: 90 capsuleRfl: 11 lisinopril-hydroCHLOROthiazide (PRINZIDE,ZESTORETIC) 10-12.5 mg per tabletTake 1 tablet by mouth once daily.Disp: 30 tabletRfl: 11 (Patient not taking: Reported on 06/30/2022) COMPOUNDED PRESCRIPTIONStair liftDisp: 1 DeviceRfl: 0 DAILY-LUISITO tabletTAKE 1 TABLET BY MOUTH ONCE DAILY.Disp: 30 tabletRfl: 11 pgtqpzf-nfxaudoqz-kxrfxrc D3 (CALCIUM 500+D) 500 mg(1,250mg) -200 unit [...] tabletRfl: 11 Z (more content not included)... [facility] 07-30-2022 Nurse Note Order has been [...] start:1403 Time stop:1415 S[employer] end[employer] PNS System Lot-[id number] [employer] PNS System EXTERNAL PULSE GENERATOR Lot-[id number] [employer] end[employer] PNS System MICROLEAD 2.0 [employer] INTRODUCER Lot-[id number] SPRINT endura PNS System CABLES - SINGLE-LEAD PROCEDURE Lot-[id number] Nurse : Amada Velasco LPN Date: July 30, 2022 Time: 2:06 PM Physician: Roque Jackson MD Date: July 30, 2022 Time: 2:06 PM Amada Velasco LPN Pause completed at each level by provider to verify correct level and laterality placement Patient was brought into the procedure room in a wheelchair . Patient s procedure was performed in [facility] procedure room. Pressure was applied to patient s injection site(s) and bleeding was minimal. Patient had no complaint of shortness of breath, dizziness, headache, numbness, tingling, weakness or complications from procedure. Patient was assisted from the procedure table into wheelchair and wheeled back to exam room. Patient was advised a Marqui Machine Cementer would be in for reprogramming. Patient was advised a clinician will be to obtain another set of vitals. Present in the room is: ROQUE JACKSON MD - Physician Amada Velasco - RUDDY Ferreira - SPRINT Machine Cementer Cordell Flynn - X-Ray Tech Comments: None Tolerated procedure well: Yes Regional Vice President Surgical Sales's Name: Stephanie Are you on a blood [...] receive one? no documented in this encounter [facility] 07-30-2022 History of Presen t illness Narrative [...] CONDYLE&PLATU MEDIAL&LAT COMPARTMENTS 1990 bilateral total knee s([place]) ARTHRP KNE CONDYLE&PLATU MEDIAL&LAT COMPARTMENTS 10/24/04 bilateral total knee revisions DELIVERY ONLY , low cervical CHOLECYSTECTOMY COLONOSCOPY FLX DX W/COLLJ SPEC WHEN PFRMD 11/17/2017 Colonoscopy DEBRIDEMENT SUBCUTANEOUS TISSUE 20 SQ CM/< 02/17/07 LEFT LEG DEBRIDEMENT SUBCUTANEOUS TISSUE 20 SQ CM/< [id number] LEFT LEG DEBRIDEMENT SUBCUTANEOUS TISSUE 20 SQ CM/< [id number] LEFT LEG DEBRIDEMENT SUBCUTANEOUS TISSUE 20 SQ CM/< [id number] LEFT LEG DEBRIDEMENT SUBCUTANEOUS TISSUE 20 SQ CM/< [id number] LEFT LEG DEBRIDEMENT SUBCUTANEOUS TISSUE 20 SQ [...] empty stomach. For thyroid.^Disp: 90 tablet^Rfl: 3 Ppgzisnfdwl-Lbtmepojb-Jhc C-Mn (GLUCOSAMINE CHONDROITIN MAXSTR) 500-400 mg cap^Take 1 capsule by mouth three times daily.^Disp: 90 capsule^Rfl: 11 lisinopril-hydroCHLOROthiazide (PRINZIDE,ZESTORETIC) 10-12.5 mg per tablet^Take 1 tablet by mouth once daily.^Disp: 30 tablet^Rfl: 11 (Patient not taking: Reported on 06/30/2022) COMPOUNDED PRESCRIPTION^Stair lift^Disp: 1 Device^Rfl: 0 DAILY-LUISITO tablet^TAKE 1 TABLET BY MOUTH ONCE DAILY.^Disp: 30 tablet^Rfl: 11 esbvwrp-uuhyxlgdo-gavihad D3 (CALCIUM 500+D) 500 mg(1,250mg) -200 unit [...] visit. Physical Exam [facility] Date: 07/30/2022 Patient name: Ting Vega Physician [...] or double vision) Respiratory: Negative (No Cough, Qmbjmwwvz-uf-hdsqdu, Dyspnea on exertion, wheezing) Cardiovascular: Negative (No [...] CONDYLE&PLATU MEDIAL&LAT COMPARTMENTS 1990 bilateral total knee s([place]) ARTHRP KNE CONDYLE&PLATU MEDIAL&LAT COMPARTMENTS 10/24/04 bilateral total knee revisions DELIVERY ONLY , low cervical CHOLECYSTECTOMY COLONOSCOPY FLX DX W/COLLJ SPEC WHEN PFRMD 11/17/2017 Colonoscopy DEBRIDEMENT SUBCUTANEOUS TISSUE 20 SQ CM/< 02/17/07 LEFT LEG DEBRIDEMENT SUBCUTANEOUS TISSUE 20 SQ CM/< [id number] LEFT LEG DEBRIDEMENT SUBCUTANEOUS TISSUE 20 SQ CM/< [id number] LEFT LEG DEBRIDEMENT SUBCUTANEOUS TISSUE 20 SQ CM/< [id number] LEFT LEG DEBRIDEMENT SUBCUTANEOUS TISSUE 20 SQ CM/< [id number] LEFT LEG DEBRIDEMENT SUBCUTANEOUS TISSUE 20 SQ [...] daily. Take on empty stomach. For thyroid. Defqyftrnsw-Mxhcdtapx-Uwq C-Mn (GLUCOSAMINE CHONDROITIN MAXSTR) 500-400 mg cap Take 1 capsule by mouth three times daily. lisinopril-hydroCHLOROthiazide (PRINZIDE,ZESTORETIC) 10-12.5 mg per tablet Take 1 tablet by mouth once daily. (Patient not taking: Reported on 06/30/2022) COMPOUNDED PRESCRIPTION Stair lift DAILY-LUISITO tablet TAKE 1 TABLET BY MOUTH ONCE DAILY. ejswwrf-dxjvnidig-bmizpfh D3 (CALCIUM 500+D) 500 mg(1,250mg) -200 unit [...] appropriate Assessment and Plan: As noted above [facility] protocol documentation / Pre-Procedure Checklist: Consent: Obtained [...] Test stimulation was conducted per the SPR digital sales representative successfully. The finder needle was then [...] programming and be discharged home with their construction driver. The patient was instructed to monitor [...] MBA [facility] Management [facility] [place] [facility] documented in this encounter [facility] 07-30-2022 Note HNO ID: [id number] Author: Roque Jackson MD Service: ? Author Type: Physician Type: Progress Notes Filed: 07/30/2022 3:48 PM Note Text: [facility] [place] [facility] Date: 07/30/2022 Patient name: Ting Vega Physician [...] Motor stim noted at 60 HPI: Ting Veag is an 82 year old FEMALE who presents today, in pain, for the procedure noted above. Review of Systems: Pertinent Positives: MSK: pain in the region being treated Neuro: no weakness or numbness in the region being treated Skin: Negative (No itching) Eyes: Negative (No blurred or double vision) Respiratory: Negative (No Cough, Sgeowlmph-oh-azhfmp, Dyspnea on exertion, wheezing) Cardiovascular: Negative (No [...] and thrombophlebitis of femoral vein (deep) (superficial) ([facility]) Unspecified sleep apnea PAST SURGICAL HISTORY Procedure Laterality Date ANESTHESIA HERNIA REPAIR LOWER ABDOMEN NOS 04/2004,05/11 gortex put in on 05/11 then taken out06/08 ARTHRP KNE CONDYLEANDPLATU MEDIALANDLAT COMPARTMENTS 1990 bilateral total knee s([place]) ARTHRP KNE CONDYLEANDPLATU MEDIALANDLAT COMPARTMENTS 10/24/04 bilateral total knee revisions DELIVERY ONLY , low cervical CHOLECYSTECTOMY COLONOSCOPY FLX DX W/COLLJ SPEC WHEN PFRMD 11/17/2017 Colonoscopy DEBRIDEMENT SUBCUTANEOUS TISSUE 20 SQ CM/< 02/17/07 LEFT LEG DEBRIDEMENT SUBCUTANEOUS TISSUE 20 SQ CM/< [id number] LEFT LEG DEBRIDEMENT SUBCUTANEOUS TISSUE 20 SQ CM/< [id number] LEFT LEG DEBRIDEMENT SUBCUTANEOUS TISSUE 20 SQ CM/< [id number] LEFT LEG DEBRIDEMENT SUBCUTANEOUS TISSUE 20 SQ CM/< [id number] LEFT LEG DEBRIDEMENT SUBCUTANEOUS TISSUE 20 SQ [...] daily. Take on empty stomach. For thyroid. Ehnenjmtdgo-Yfooelawi-Bpm C-Mn (GLUCOSAMINE CHONDROITIN MAXSTR) 500-400 mg cap Take 1 capsule by mouth three times daily. lisinopril-hydroCHLOROthiazide (PRINZIDE,ZESTORETIC) 10-12.5 mg per tablet Take 1 tablet by mouth once daily. (Patient not taking: Reported on 06/30/2022) COMP (more content not included)... [facility] 07-21-2022 Note HNO ID: [id number] Author: Roque Jackson MD Service: ? Author Type: Physician Type: Progress Notes Filed: 07/31/2022 9:14 AM Note Text: [facility] Name: Ting Vega : 1940 Purpose: 2 month follow-up Today's Date: 07/31/2022 Last Visit: 04/03/2022 (FILLING AND PACKING SUPERVISOR.Eva CORONA) Chief complaint: Thoracic and low back [...] limits. Canal an (more content not included)... [facility] 07-14-2022 Miscellaneous Notes Approved. PDMP website [...] to 90 days. Authorizing Provider: MULUGETA JENNINGS APRN.MANUFACTURE SPECIALIST Patient has been identified by name and [...] Patricia Mcqueen Pss documented in this encounter [facility] 07-02-2022 Nurse Note Regional Vice President Surgical Sales's Name: Richard Are you on a blood [...] receive one? N documented in this encounter [facility] 07-02-2022 Note HNO ID: [id number] Author: Roque Jacksno MD Service: ? Author Type: Physician Type: Progress Notes Filed: 07/03/2022 1:06 PM Note Text: Procedure cancelled, patient on antibiotic for UTI. Will reschedule. Roque Jackson III, MD, MBA [facility] 07-02-2022 History of Presen t illness Narrative Procedure cancelled, patient on antibiotic for UTI. Will reschedule. Roque Jackson III, MD, MBA documented in this encounter [facility] 07-01-2022 Miscellaneous Notes Pt notified of results and provider message. Esme Chi LPN Unable to reach patient. Left VM to return call to office. Please read below and advise. Chaya Banueols MA Please let the patient know that her urine culture did grow e.coli bacteria. The macrobid that Miryam prescribed will treat the bacteria appropriately. Mulugeta Jennings APRN.CJ documented in this encounter [facility] 06-30-2022 Note HNO ID: [id number] Author: Jud Gomes APRN.CJ Service: ? Author Type: Nurse Practitioner Type: Progress Notes Filed: 06/30/2022 12:50 PM Note Text: Female Pelvic Medicine AND Reconstructive Surgery Consult CHIEF COMPLAINT: Ting Vega is a 82 year old female who presents for consultation requested by Miryam Wells APRN.CNP for an opinion regarding Female stress incontinence. HISTORY OF PRESENT ILLNESS: Patient presents today with management developer who lives near her. 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 Ability to do polysomnography technologist (cooking, housecleaning, laundry) Quite a bit somewhat [...] Not at all (more content not included)... [facility] 06-30-2022 Instructions Jud Gomes APRN.MANUFACTURE SPECIALIST - 06/30/2022 10:56 AM EDT Images from the original note were not included. INFORMATION ON URODYNAMICS (BLADDER FUNCTION TEST) Getting Ready for the Test You do not have to fast before the test. Begin to drink 24-32 ounces of fluid (water, cranberry juice, milk, herbal tea) 90 minutes prior to the test so you arrive at the [facility] with the urge to empty your bladder. [...] your bladder when you arrive at the [facility]. Speak with a nurse if you feel you must empty your bladder. If you are taking antibiotics for a urinary tract infection (UTI) or bladder infection, notify your physician's office immediately. We may reschedule your bladder test. Bring a list of all prescribed and iwda-fgu-blxxzce medications you are taking. If you should need assistance due to a language barrier or medical needs/condition, please notify the associate team physician when making your appointment and one will be provided for you ([phone]). If you are taking overactive bladder medications [...] bladder symptoms. These include: Alcoholic beverages Cantaloupe Cascade and spicy foods Apples & apple juice [place] fruit Chocolate Tea & Coffee (including decaffeinated) [...] bathroom at a normal pace. Do not rodriguze. Continue squeezing your pelvic floor muscles quickly [...] the implant is placed. Useful Internet resources Https://www.[employer].org/ https://www.niddk.nih.gov/health -information https://www.[employer].org/ Bladder Training Program for Overactive Bladder & [...] colors/dyes Tomatoes Beer Chocolate Spicy foods Wine [place] syrup [place] juices and fruit Caffeine: Sugar Carbonated fluids [...] take these medications. documented in this encounter [facility] 06-30-2022 History of Presen t illness Narrative Female Pelvic Medicine & Reconstructive Surgery Consult CHIEF COMPLAINT: Ting Vega is a 82 year old female who presents for consultation requested by Miryam Wells APRN.CNP for an opinion regarding Female stress incontinence. HISTORY OF PRESENT ILLNESS: Patient presents today with management developer who lives near her. 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 Ability to do polysomnography technologist (cooking, housecleaning, laundry) Quite a bit somewhat [...] CONDYLE&PLATU MEDIAL&LAT COMPARTMENTS 1990 bilateral total knee s([place]) ARTHRP KNE CONDYLE&PLATU MEDIAL&LAT COMPARTMENTS 10/24/04 bilateral total knee revisions DELIVERY ONLY , low cervical CHOLECYSTECTOMY COLONOSCOPY FLX DX W/COLLJ SPEC WHEN PFRMD 11/17/2017 Colonoscopy DEBRIDEMENT SUBCUTANEOUS TISSUE 20 SQ CM/< 02/17/07 LEFT LEG DEBRIDEMENT SUBCUTANEOUS TISSUE 20 SQ CM/< [id number] LEFT LEG DEBRIDEMENT SUBCUTANEOUS TISSUE 20 SQ CM/< [id number] LEFT LEG DEBRIDEMENT SUBCUTANEOUS TISSUE 20 SQ CM/< [id number] LEFT LEG DEBRIDEMENT SUBCUTANEOUS TISSUE 20 SQ CM/< [id number] LEFT LEG DEBRIDEMENT SUBCUTANEOUS TISSUE 20 SQ [...] daily. Take on empty stomach. For thyroid. Dprdtgeozoh-Hsrhbwkfs-Mfy C-Mn (GLUCOSAMINE CHONDROITIN MAXSTR) 500-400 mg cap Take 1 capsule by mouth three times daily. COMPOUNDED PRESCRIPTION Stair lift DAILY-LUISITO tablet TAKE 1 TABLET BY MOUTH ONCE DAILY. wdimdgc-ucncxutke-jarvobp D3 (CALCIUM 500+D) 500 mg(1,250mg) -200 unit [...] and ROS obtained by others. Jud Gomes APRN.MANUFACTURE SPECIALIST Production Clerk offered: Patient declines. OBJECTIVE: BP 135/80 Pulse [...] which included preparing to see the patient, ydck-zg-gtsy patient care, completing clinical documentation, obtaining and/or reviewing separately obtained history, performing a medically appropriate examination, counseling and educating the patient/family/caregiver, and ordering medications, tests, or procedures. My final recommendations will be communicated back to the requesting physician by way of shared Medical record or letter via US mail. Jud Gomes APRN.CJ documented in this encounter [facility] 06-27-2022 Miscellaneous Notes Patient returned call and [...] Mulugeta Jennings APRN.CJ documented in this encounter [facility] 06-26-2022 Note HNO ID: [id number] Author: Miryam Wells APRN.CJ Service: ? Author [...] on the right side July 02 in [place]. Knee Pain: Would like a prescription for [...] and thrombophlebitis of femoral vein (deep) (superficial) ([facility]) Unspecified sleep apnea PAST SURGICAL HISTORY Procedure Laterality Date ANESTHESIA HERNIA REPAIR LOWER ABDOMEN NOS 04/2004,05/11 gortex put in on 05/11 then taken out06/08 ARTHRP KNE CONDYLEANDPLATU MEDIALANDLAT COMPARTMENTS 1990 bilateral total knee s([place]) ARTHRP KNE CONDYLEANDPLATU MEDIALANDLAT COMPARTMENTS 10/24/04 bilateral total knee revisions DELIVERY ONLY , low cervical CHOLECYSTECTOMY COLONOSCOPY FLX DX W/COLLJ SPEC WHEN PFRMD 11/17/2017 Colonoscopy DEBRIDEMENT SUBCUTANEOUS TISSUE 20 SQ CM/< 02/17/07 LEFT LEG DEBRIDEMENT SUBCUTANEOUS TISSUE 20 SQ CM/< [id number] LEFT LEG DEBRIDEMENT SUBCUTANEOUS TISSUE 20 SQ CM/< [id number] LEFT LEG DEBRIDEMENT SUBCUTANEOUS TISSUE 20 SQ CM/< [id number] LEFT LEG DEBRIDEMENT SUBCUTANEOUS TISSUE 20 SQ CM/< [id number] LEFT LEG DEBRIDEMENT SUBCUTANEOUS TISSUE 20 SQ [...] daily. Take on empty stomach. For thyroid. Ohubgoqklci-Bshbfusbw-Odb C-Mn (GLUCOSAMINE CHONDROITIN MAXSTR) 500-400 mg cap Take 1 capsule by mouth three times daily. lisinopril-hydroCHLOROthiazide (PRINZIDE,ZESTORETIC) 10-12.5 mg per tablet Take 1 tablet by mouth once daily. COMPOUNDED PRESCRIPTION Stair lift DAILY-LUISITO tablet TAKE 1 TABLET BY MOUTH ONCE DAILY. mgxbirv-cuyjqaisd-qdwukby D3 (CALCIUM 500+D) 500 mg(1,250mg) -200 unit [...] 500 MG TAB (more content not included)... [facility] 06-26-2022 Instructions Miryam Wells APRN.CNP - 06/26/2022 [...] to Dr. Hernandez, she is located in [facility], 2nd floor. Keep scheduled appointments with Dr. Acosta and Dr. Jackson Follow up in 3 months or sooner as needed. documented in this encounter [facility] 06-26-2022 History of Presen t illness Narrative [...] on the right side July 02 in [place]. Knee Pain: Would like a prescription for [...] CONDYLE&PLATU MEDIAL&LAT COMPARTMENTS 1990 bilateral total knee s([place]) ARTHRP KNE CONDYLE&PLATU MEDIAL&LAT COMPARTMENTS 10/24/04 bilateral total knee revisions DELIVERY ONLY , low cervical CHOLECYSTECTOMY COLONOSCOPY FLX DX W/COLLJ SPEC WHEN PFRMD 11/17/2017 Colonoscopy DEBRIDEMENT SUBCUTANEOUS TISSUE 20 SQ CM/< 02/17/07 LEFT LEG DEBRIDEMENT SUBCUTANEOUS TISSUE 20 SQ CM/< [id number] LEFT LEG DEBRIDEMENT SUBCUTANEOUS TISSUE 20 SQ CM/< [id number] LEFT LEG DEBRIDEMENT SUBCUTANEOUS TISSUE 20 SQ CM/< [id number] LEFT LEG DEBRIDEMENT SUBCUTANEOUS TISSUE 20 SQ CM/< [id number] LEFT LEG DEBRIDEMENT SUBCUTANEOUS TISSUE 20 SQ [...] daily. Take on empty stomach. For thyroid. Azyudzrrvvt-Rxkmkewpp-Ofb C-Mn (GLUCOSAMINE CHONDROITIN MAXSTR) 500-400 mg cap Take 1 capsule by mouth three times daily. lisinopril-hydroCHLOROthiazide (PRINZIDE,ZESTORETIC) 10-12.5 mg per tablet Take 1 tablet by mouth once daily. COMPOUNDED PRESCRIPTION Stair lift DAILY-LUISITO tablet TAKE 1 TABLET BY MOUTH ONCE DAILY. hkiatvb-pijcgemph-vpcaksb D3 (CALCIUM 500+D) 500 mg(1,250mg) -200 unit [...] APRN.CJ This note was partially generated using [employer] recognition system. Note was reviewed for accuracy. There may be minor misspellings or grammar miscues with [employer] voice recognition. documented in this encounter [facility] 06-04-2022 Miscellaneous Notes Addended by: ROQUE JACKSON [...] with Roque Jackson MD at [address], [place] [address]. Ting Vega has been scheduled for Lead pull - right side on 09/04/22 at 9:45am, with Roque Jackson MD at [address], [place] [address]. Ting Vega has been scheduled for SPR device placement - left side on 07/30/22 at 1pm, with Roque Jackson MD at [address], [place] [address]. Ting Vega has been scheduled for Lead pull - left side on 10/02/22 at 9:45am, with Roque Jackson MD at [address], [place] [address]. Please call in Xanax and Antibiotics to e- [id number] [place] [address] - [phone] - [phone] [facility] [phone] [facility] [address] Patient has allergies to Allergies: Aspirin Intolerance Bactrim [Sulfametho* Hives Comment:Blisters: head to toe Ibuprofen Rash Kefzol [Cefazolin S* Hives Peanut Butter [Othe* Comment:throat swelling, convulsions Sulfa (Sulfonamide * Hives, Unknown Comment:Blisters: head to toe Mailed patient pre procedure instructions and appointment reminders to patient. Samantha Marx Director Of Financial Reporting to Dr. Roque Jackson, Spinal Cord Stimulator, Peripheral Nerve Stimulator, [facility] [address] [address] P: [phone] ext. [phone] F: [phone] documented in this encounter [facility] 05-30-2022 Miscellaneous Notes I have attempted to contact this patient by phone, Spoke with someone that took a message stating to give me a call back at [phone] EXT [phone]. I have received the approval for the SPR device and I was trying to get her scheduled. Samantha Marx documented in this encounter [facility] 05-26-2022 Miscellaneous Notes Patient referred to urogynecology for urinary incontinence. Currently, Dr. Shafer is only seeing surgical consults. Patient can be scheduled with urogynecology SPOTTER- Jud Gomes. LMTCB, contact information provided. documented in this encounter [facility] 05-19-2022 Miscellaneous Notes Noted, thank you. Miryam [...] Olga Dillard RN documented in this encounter [facility] 05-16-2022 History of Presen t illness Narrative [...] CONDYLE&PLATU MEDIAL&LAT COMPARTMENTS 1990 bilateral total knee s([place]) ARTHRP KNE CONDYLE&PLATU MEDIAL&LAT COMPARTMENTS 10/24/04 bilateral total knee revisions DELIVERY ONLY , low cervical CHOLECYSTECTOMY COLONOSCOPY FLX DX W/COLLJ SPEC WHEN PFRMD 11/17/2017 Colonoscopy DEBRIDEMENT SUBCUTANEOUS TISSUE 20 SQ CM/< 02/17/07 LEFT LEG DEBRIDEMENT SUBCUTANEOUS TISSUE 20 SQ CM/< [id number] LEFT LEG DEBRIDEMENT SUBCUTANEOUS TISSUE 20 SQ CM/< [id number] LEFT LEG DEBRIDEMENT SUBCUTANEOUS TISSUE 20 SQ CM/< [id number] LEFT LEG DEBRIDEMENT SUBCUTANEOUS TISSUE 20 SQ CM/< [id number] LEFT LEG DEBRIDEMENT SUBCUTANEOUS TISSUE 20 SQ [...] daily. Take on empty stomach. For thyroid. Fkfeunsdnlf-Tnxgdietz-Xox C-Mn (GLUCOSAMINE CHONDROITIN MAXSTR) 500-400 mg cap Take 1 capsule by mouth three times daily. lisinopril-hydroCHLOROthiazide (PRINZIDE,ZESTORETIC) 10-12.5 mg per tablet Take 1 tablet by mouth once daily. COMPOUNDED PRESCRIPTION Stair lift DAILY-LUISITO tablet TAKE 1 TABLET BY MOUTH ONCE DAILY. klmridq-laggizyhk-asvswob D3 (CALCIUM 500+D) 500 mg(1,250mg) -200 unit [...] patient there is a new urogynecologist at [facility] Dr. Jessica Shafer -I will forward this note to her for her consideration/evaluation or for urologic incontinence issues. Diagnoses: (A04.72) C. difficile colitis (primary encounter diagnosis) (K62.5) Rectal bleeding (R19.5) Change in stool (W19.XXXA) Fall, initial encounter My findings have been communicated to [facility] via shared medical record. This note will be forwarded to Lizy Capone MD. Return to Clinic: The patient is instructed to follow-up with me as needed. Jae Cagle MD documented in this encounter [facility] 05-15-2022 Miscellaneous Notes Procedure(s) being scheduled: 1.Are [...] No 9. Does this procedure require a construction driver? Yes If yes, has patient been notified that a construction driver is needed and must be present [...] vaccine.) Ralph Rodriguez documented in this encounter [facility] 05-13-2022 History of Presen t illness Narrative [...] 2022 4:33 PM documented in this encounter [facility] 05-13-2022 Nurse Note REVIEW OF SYSTEMS: General: [...] 2019 Last Colonoscopy: 2017 Ting Umaña LPN documented in this encounter [facility] 05-06-2022 Miscellaneous Notes Left detailed message on [...] Noemy Wilson APRN.CNP documented in this encounter [facility] 04-30-2022 Miscellaneous Notes Noted, thank you. Miryam [...] Miryam Wells APRN.CNP documented in this encounter [facility] 04-29-2022 History of Presen t illness Narrative [...] 2022 8:40 AM documented in this encounter [facility] 04-28-2022 Miscellaneous Notes Pt notified. Mellisa Lackey [...] hip was added. documented in this encounter [facility] 04-17-2022 Miscellaneous Notes Spoke with pt and [...] Allison Do Pss documented in this encounter [facility] 04-16-2022 Miscellaneous Notes The following approved medication [...] Minna Blue LPN documented in this encounter [facility] 03-04-2022 History of Presen t illness Narrative [...] 2022 5:23 PM documented in this encounter [facility] 02-18-2022 Miscellaneous Notes Rx mailed to pt [...] Viridiana Russ LPN documented in this encounter [facility] 01-30-2022 Miscellaneous Notes 1.Are you diabetic No [...] vaccine.) Bre Lamar documented in this encounter [facility] 01-30-2022 History of Presen t illness Narrative [...] not nervous/anxious. [facility] [place] [facility] Today's Date: 01/30/2022 Last Visit: 11/28/2021 [...] bony destructive process. Lumbar: There are five uuz-nmh-sgioqdp lumbar vertebrae. No acute fracture or subluxations [...] was advised that they will need a construction driver for after the procedure and that if no construction driver is available and on site at [...] 09/19/2021 Completed and reviewed, moderate risk Functional Baptism: Physical Therapy (Land-based) - Continue Additional Studies: [...] [facility] documented in this encounter [facility] 01-20-2022 Miscellaneous Notes Approved. PDMP website checked [...] to 90 days. 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 Lab results will be faxed to their office. Mild improvement with kidney function however I still would recommend that she follow-up with nephrology. Please let me know if she has any questions. Thank you. Miryam Wells APRN.MANUFACTURE SPECIALIST documented in this encounter [facility] 01-08-2022 Nurse Note Patient denies any numbness/tingling. documented in this encounter [facility] 01-08-2022 Surgical operatio n note OPERATIVE/PROCEDURE REPORT LOG ID: [id number] SURGERY/PROCEDURE DATE: 01/08/2022 INCISION/PROCEDURE START TIME: 11:20 AM INCISION CLOSE/PROCEDURE END TIME: 11:34 AM SURGEON(S)/PROCEDURALIST(S) AND CAMPUS RECRUITING COORDINATOR(S): Surgeon(s) and Role: * Roque Jackson MD [...] TIME: 11:38 AM documented in this encounter [facility] 01-08-2022 History and physical note LOCAL PROCEDURE [...] capsule by mouth once daily. 01/07/2022 Yes Sldwodmbpvq-Ngwmeggei-Yia C-Mn (GLUCOSAMINE CHONDROITIN MAXSTR) 500-400 mg cap Take 1 capsule by mouth three times daily. 01/07/2022 Yes lisinopril-hydroCHLOROthiazide (PRINZIDE,ZESTORETIC) 10-12.5 mg per tablet Take 1 tablet by mouth once daily. Yes DAILY-LUISITO tablet TAKE 1 TABLET BY MOUTH ONCE DAILY. 01/07/2022 Yes zuuymfx-vogmsglrd-bamihtq D3 (CALCIUM 500+D) 500 mg(1,250mg) -200 unit [...] TIME: 10:40 AM documented in this encounter [facility] 01-07-2022 Miscellaneous Notes Patient calls and requests that nephrology referral, office notes, and labs to be faxed to Dr. Murillo at [phone]. Faxed as requested. Lora Najera RN documented in this encounter [facility] 01-06-2022 History of Presen t illness Narrative [...] No pitting observed. TREATMENT: Therapeutic Exercise: 1: [employer] seated stepper, seat 14, x 5 min [...] Allison Pryor PT documented in this encounter [facility] 01-02-2022 Instructions Miryam Wells APRN.CNP - 01/02/2022 [...] appointment with Nephrology. documented in this encounter [facility] 01-02-2022 History of Presen t illness Narrative [...] since 12/26/2021 Patient had office visit with [facility] due to lymphedema, labs were ordered, BNP elevated at 244.1, Per provider note patient has new abdominal ascites in addition to bilateral lower extremity lymphedema. Patient does follow with cardiology at [facility], Dr. Jackson. Bun 43, Creatinine: [...] CONDYLE&PLATU MEDIAL&LAT COMPARTMENTS 1990 bilateral total knee s([place]) ARTHRP KNE CONDYLE&PLATU MEDIAL&LAT COMPARTMENTS 10/24/04 bilateral total knee revisions DELIVERY ONLY , low cervical CHOLECYSTECTOMY COLONOSCOPY FLX DX W/COLLJ SPEC WHEN PFRMD 11/17/2017 Colonoscopy DEBRIDEMENT SUBCUTANEOUS TISSUE 20 SQ CM/< 02/17/07 LEFT LEG DEBRIDEMENT SUBCUTANEOUS TISSUE 20 SQ CM/< [id number] LEFT LEG DEBRIDEMENT SUBCUTANEOUS TISSUE 20 SQ CM/< [id number] LEFT LEG DEBRIDEMENT SUBCUTANEOUS TISSUE 20 SQ CM/< [id number] LEFT LEG DEBRIDEMENT SUBCUTANEOUS TISSUE 20 SQ CM/< [id number] LEFT LEG DEBRIDEMENT SUBCUTANEOUS TISSUE 20 SQ [...] Take 1 capsule by mouth once daily. Tzvkmghikhj-Thfiiohya-Xvr C-Mn (GLUCOSAMINE CHONDROITIN MAXSTR) 500-400 mg cap Take 1 capsule by mouth three times daily. lisinopril-hydroCHLOROthiazide (PRINZIDE,ZESTORETIC) 10-12.5 mg per tablet Take 1 tablet by mouth once daily. COMPOUNDED PRESCRIPTION Stair lift DAILY-LUISITO tablet TAKE 1 TABLET BY MOUTH ONCE DAILY. kushgfr-kuqhfcbwx-hzdofwm D3 (CALCIUM 500+D) 500 mg(1,250mg) -200 unit [...] APRN.CJ This note was partially generated using [employer] voice recognition system. Note was reviewed for accuracy. There may be minor misspellings or grammar miscues with [employer] voice recognition. documented in this encounter [facility] 01-01-2022 History of Presen t illness Narrative [...] Allison Pryor PT documented in this encounter [facility] 12-26-2021 Instructions Avis Marrufo APRN.CJ - 12/26/2021 2:48 PM EDT Activity as tolerated Use Ice and/or heat as tolerated as needed documented in this encounter [facility] 12-26-2021 History of Presen t illness Narrative [...] Total Time Spent: 12 minutes Avis Marrufo APRN.MANUFACTURE SPECIALIST Review of Systems Constitutional: Negative for chills, [...] activity was identified. 12/26/2021 by Avis Marrufo APRN.MANUFACTURE SPECIALIST documented in this encounter [facility] 12-25-2021 Surgical operatio n note OPERATIVE/PROCEDURE REPORT LOG ID: [id number] SURGERY/PROCEDURE DATE: 12/25/2021 INCISION/PROCEDURE START TIME: 12:44 PM INCISION CLOSE/PROCEDURE END TIME: 12:54 PM SURGEON(S)/PROCEDURALIST(S) AND CAMPUS RECRUITING COORDINATOR(S): Surgeon(s) and Role: * Roque Jackson MD [...] TIME: 12:57 PM documented in this encounter [facility] 12-25-2021 History and physical note UPDATED HISTORY [...] TIME: 12:28 PM documented in this encounter [facility] 12-23-2021 Miscellaneous Notes Neurontin: Has refills at pharmacy. Patient has several refills at pharmacy. Felicia Gabriel MA documented in this encounter [facility] 12-16-2021 History of Presen t illness Narrative [...] % : 0 TREATMENT: Therapeutic Exercise: 1: [employer] seated stepper, seat 14, x 5 min [...] Allison Pryor PT documented in this encounter [facility] 12-11-2021 History of Presen t illness Narrative [...] Allison Pryor PT documented in this encounter [facility] 12-02-2021 History of Presen t illness Narrative [...] Allison Pryor PT documented in this encounter [facility] 11-26-2021 Miscellaneous Notes OK to refill as [...] patient. 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 Patient education as noted. Self-Shelter Management: 1: Reviewed education of lymphedema and [...] Allison Pryor PT documented in this encounter [facility] 11-12-2021 History of Presen t illness Narrative [...] Jerod Flynn PT documented in this encounter [facility] 11-05-2021 History of Presen t illness Narrative [...] toward set goals. PLAN FOR NEXT VISIT: [place] SUBJECTIVE: Patient Reason for Visit: Pt states [...] Jerod Flynn PT documented in this encounter [facility] 10-24-2021 Miscellaneous Notes The following approved medication [...] as needed for up to 90 days. ELVON Class: C-IV MARJ: No Last seen 07/16/2021 NO follow up scheduled. Please review and advise. Rachel Padilla documented in this encounter [facility] 10-22-2021 History of Presen t illness Narrative [...] Jerod Flynn PT documented in this encounter [facility] 10-21-2021 History of Presen t illness Narrative [...] 2021 1:42 PM documented in this encounter [facility] 10-01-2021 Miscellaneous Notes Spoke to patient to [...] patient. Kayla Castro documented in this encounter [facility] 09-20-2021 History of Presen t illness Narrative [...] 2021 1:27 PM documented in this encounter [facility] 09-19-2021 Miscellaneous Notes Sent in consult to physical therapy, confirmation number is [id number]. documented in this encounter [facility] 09-19-2021 Instructions Avis Marrufo APRN.CJ - 09/19/2021 9:52 AM EDT Activity as tolerated Use Ice and/or heat as tolerated as needed documented in this encounter [facility] 09-19-2021 History of Presen t illness Narrative [facility] [place] [facility] Today's Date: 09/19/2021 Last Visit: N/A [...] Relaxation;Positioning;Heat;Mass age Comments - - Pain Assessment (RN/INFORMATION SYSTEMS SECURITY SPECIALIST) - - Current Pain Medications: o Opioids: [...] abnormality. Degenerative changes. Scoliosis Lower thorax: Unremarkable. Warehouse Insulation Worker (topogram) images: No additional findings. Electrodiagnostic Study (EMG): None Recent labs: Creatinine Date Value Ref Range Status 07/16/2021 1.72 (H) 0.58 - 0.96 mg/dL Final @lastegfr(gfr)@ No results found for: PCGLUCOSE Pain Procedures: DATE PROCEDURE IMPROVEMENT None to date at this practice Compliance: PDMP website checked and validated. All prescriptions have been APPROPRIATELY filled. No suspicious activity was identified. 09/19/2021 by Avis Marrufo APRN.MANUFACTURE SPECIALIST Last Drug screen: Not Applicable Risk Assessment: [...] 09/19/2021 Completed and reviewed, moderate risk Functional Baptism: Physical Therapy (Land-based) Additional Studies: XR Thoracic [...] decision making from today's date. Avis Marrufo APRN.MANUFACTURE SPECIALIST Pain [facility] Review of Systems Constitutional: Negative for activity [...] is not nervous/anxious. documented in this encounter [facility] 09-12-2021 Miscellaneous Notes The following approved medication [...] patient. Jacki Cole documented in this encounter [facility] 08-08-2021 Miscellaneous Notes Patient scheduled with Avis Ruiz on 09/19 Sofía Crowe Vice President Quality Director Of Financial Reporting to [facility] [address] [place] [address] P: [phone] ext [phone] F: [phone] [email or web address] Pain Management is scheduled out of [place] office. Routing message to [facility]. Please contact pt to set up Pain [...] IUD in the uterus. Right renal cyst. Agricultural Services Director: CHEIKH Transcribe Date/Time: Jul 25 2021 2:02P Dictated by : MARTHA MOHR MD This examination was interpreted and the report reviewed and electronically signed by: MARTHA MOHR MD on Jul 25 2021 2:53PM EST Results-Findings * * *Final Report* * * DATE OF EXAM: Jul 25 2021 11:09AM [facility] 0531 - CT ABD/PEL WO IVCON [...] abnormality. Degenerative changes. Scoliosis Lower thorax: Unremarkable. Warehouse Insulation Worker (topogram) images: No additional findings. documented in this encounter [facility] 07-26-2021 Miscellaneous Notes [facility]. [facility] and [facility]. All prescriptions have [...] patient. Patricia Cole documented in this encounter [facility] 07-25-2021 History of Presen t illness Narrative [...] 2021 1:09 PM documented in this encounter [facility] 07-18-2021 Miscellaneous Notes Pt called and notified, verbalized understanding. Pt was transferred to General Scheduling to setup CT Abd/Pelv. Suzette Myles Ma Please notify patient that her labs and Xray all look OK; I would recommend getting a CT of her abd/pelvis as the next step. Lizy Capone MD documented in this encounter [facility] 07-16-2021 History of Presen t illness Narrative [...] use of Prilosec 20 mg once daily. 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 and had [...] CONDYLE&PLATU MEDIAL&LAT COMPARTMENTS 1990 bilateral total knee s([place]) ARTHRP KNE CONDYLE&PLATU MEDIAL&LAT COMPARTMENTS 10/24/04 bilateral total knee revisions DELIVERY ONLY , low cervical CHOLECYSTECTOMY COLONOSCOPY FLX DX W/COLLJ SPEC WHEN PFRMD 11/17/2017 Colonoscopy DEBRIDEMENT SUBCUTANEOUS TISSUE 20 SQ CM/< 02/17/07 LEFT LEG DEBRIDEMENT SUBCUTANEOUS TISSUE 20 SQ CM/< [id number] LEFT LEG DEBRIDEMENT SUBCUTANEOUS TISSUE 20 SQ CM/< [id number] LEFT LEG DEBRIDEMENT SUBCUTANEOUS TISSUE 20 SQ CM/< [id number] LEFT LEG DEBRIDEMENT SUBCUTANEOUS TISSUE 20 SQ CM/< [id number] LEFT LEG DEBRIDEMENT SUBCUTANEOUS TISSUE 20 SQ [...] as needed for up to 90 days. Cjdtcabpcwj-Aceomzdwn-Ggn C-Mn (GLUCOSAMINE CHONDROITIN MAXSTR) 500-400 mg cap [...] TAKE 1 CAPSULE BY MOUTH ONCE DAILY. hlzeith-fjhnsjiod-pdelype D3 (CALCIUM 500+D) 500 mg(1,250mg) -200 unit [...] Past Histories independently gathered by the clinical system support developer and the remaining scribed note accurately describes [...] Suzette Myles Ma documented in this encounter [facility] documented as of this encounter (statuses as of 07/16/2021) [facility] History of Past illness Narrative* Problem Noted Date Resolved Date Screening for colon cancer 11/24/201607/12 Overview: Added automatically from request for surgery [id number] Pain in joint, lower leg 11/14/2008 010 MASS IN SUBCUTANEOUS TISSUE 07/21/200808/04 Non-healing surgical wound 03/16/200705/18 Other injury of other sites of trunk 01/16/2006 07/01/2007 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 07/12/2021 Other ventral hernia without mention of obstruction or gangrene 03/26/2004 07/01/2007 THROMBOPHLEBITIS NOS(aka DVT) 07/21/2003 PULMON EMBOLISM/INFARCT(aka EMBOLISM) 07/21/2003 08/21/2009 documented as of this encounter (statuses as of 07/18/2021) [facility] History of Past illness Narrative* Problem Noted Date Resolved Date Screening for colon cancer 11/24/201607/12 Overview: Added automatically from request for surgery [id number] Pain in joint, lower leg 11/14/2008 010 MASS IN SUBCUTANEOUS TISSUE 07/21/200808/04 Non-healing surgical wound 03/16/200705/18 Other injury of other sites of trunk 01/16/2006 07/01/2007 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 07/12/2021 Other ventral hernia without mention of obstruction or gangrene 03/26/2004 07/01/2007 THROMBOPHLEBITIS NOS(aka DVT) 07/21/2003 PULMON EMBOLISM/INFARCT(aka EMBOLISM) 07/21/2003 08/21/2009 documented as of this encounter (statuses as of 07/26/2021) [facility] History of Past illness Narrative* Problem Noted Date Resolved Date Screening for colon cancer 11/24/201607/12 Overview: Added automatically from request for surgery [id number] Pain in joint, lower leg 11/14/2008 010 MASS IN SUBCUTANEOUS TISSUE 07/21/200808/04 Non-healing surgical wound 03/16/200705/18 Other injury of other sites of trunk 01/16/2006 07/01/2007 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 07/12/2021 Other ventral hernia without mention of obstruction or gangrene 03/26/2004 07/01/2007 THROMBOPHLEBITIS NOS(aka DVT) 07/21/2003 PULMON EMBOLISM/INFARCT(aka EMBOLISM) 07/21/2003 08/21/2009 documented as of this encounter (statuses as of 07/26/2021) [facility] History of Past illness Narrative* Problem Noted Date Resolved Date Screening for colon cancer 11/24/201607/12 Overview: Added automatically from request for surgery [id number] Pain in joint, lower leg 11/14/2008 010 MASS IN SUBCUTANEOUS TISSUE 07/21/200808/04 Non-healing surgical wound 03/16/200705/18 Other injury of other sites of trunk 01/16/2006 07/01/2007 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 07/12/2021 Other ventral hernia without mention of obstruction or gangrene 03/26/2004 07/01/2007 THROMBOPHLEBITIS NOS(aka DVT) 07/21/2003 PULMON EMBOLISM/INFARCT(aka EMBOLISM) 07/21/2003 08/21/2009 documented as of this encounter (statuses as of 08/08/2021) [facility] History of Past illness Narrative* Problem Noted Date Resolved Date Screening for colon cancer 11/24/201607/12 Overview: Added automatically from request for surgery [id number] Pain in joint, lower leg 11/14/2008 010 MASS IN SUBCUTANEOUS TISSUE 07/21/200808/04 Non-healing surgical wound 03/16/200705/18 Other injury of other sites of trunk 01/16/2006 07/01/2007 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 07/12/2021 Other ventral hernia without mention of obstruction or gangrene 03/26/2004 07/01/2007 THROMBOPHLEBITIS NOS(aka DVT) 07/21/2003 PULMON EMBOLISM/INFARCT(aka EMBOLISM) 07/21/2003 08/21/2009 documented as of this encounter (statuses as of 09/12/2021) [facility] of Past illness Narrative* Problem Noted Date Resolved Date Screening for colon cancer 11/24/201607/12 Overview: Added automatically from request for surgery [id number] Pain in joint, lower leg 11/14/2008 010 MASS IN SUBCUTANEOUS TISSUE 07/21/200808/04 Non-healing surgical wound 03/16/200705/18 Other injury of other sites of trunk 01/16/2006 07/01/2007 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 07/12/2021 Other ventral hernia without mention of obstruction or gangrene 03/26/2004 07/01/2007 THROMBOPHLEBITIS NOS(aka DVT) 07/21/2003 PULMON EMBOLISM/INFARCT(aka EMBOLISM) 07/21/2003 08/21/2009 documented as of this encounter (statuses as of 09/19/2021) [facility] of Past illness Narrative* Problem Noted Date Resolved Date Screening for colon cancer 11/24/201607/12 Overview: Added automatically from request for surgery [id number] Pain in joint, lower leg 11/14/2008 010 MASS IN SUBCUTANEOUS TISSUE 07/21/200808/04 Non-healing surgical wound 03/16/200705/18 Other injury of other sites of trunk 01/16/2006 07/01/2007 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 07/12/2021 Other ventral hernia without mention of obstruction or gangrene 03/26/2004 07/01/2007 THROMBOPHLEBITIS NOS(aka DVT) 07/21/2003 PULMON EMBOLISM/INFARCT(aka EMBOLISM) 07/21/2003 08/21/2009 documented as of this encounter (statuses as of 09/19/2021) [facility] of Past illness Narrative* Problem Noted Date Resolved Date Screening for colon cancer 11/24/201607/12 Overview: Added automatically from request for surgery [id number] Pain in joint, lower leg 11/14/2008 010 MASS IN SUBCUTANEOUS TISSUE 07/21/200808/04 Non-healing surgical wound 03/16/200705/18 Other injury of other sites of trunk 01/16/2006 07/01/2007 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 07/12/2021 Other ventral hernia without mention of obstruction or gangrene 03/26/2004 07/01/2007 THROMBOPHLEBITIS NOS(aka DVT) 07/21/2003 PULMON EMBOLISM/INFARCT(aka EMBOLISM) 07/21/2003 08/21/2009 documented as of this encounter (statuses as of 09/21/2021) [facility] of Past illness Narrative* Problem Noted Date Resolved Date Screening for colon cancer 11/24/201607/12 Overview: Added automatically from request for surgery [id number] Pain in joint, lower leg 11/14/2008 010 MASS IN SUBCUTANEOUS TISSUE 07/21/200808/04 Non-healing surgical wound 03/16/200705/18 Other injury of other sites of trunk 01/16/2006 07/01/2007 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 07/12/2021 Other ventral hernia without mention of obstruction or gangrene 03/26/2004 07/01/2007 THROMBOPHLEBITIS NOS(aka DVT) 07/21/2003 PULMON EMBOLISM/INFARCT(aka EMBOLISM) 07/21/2003 08/21/2009 documented as of this encounter (statuses as of 10/01/2021) [facility] of Past illness Narrative* Problem Noted Date Resolved Date Screening for colon cancer 11/24/201607/12 Overview: Added automatically from request for surgery [id number] Pain in joint, lower leg 11/14/2008 010 MASS IN SUBCUTANEOUS TISSUE 07/21/200808/04 Non-healing surgical wound 03/16/200705/18 Other injury of other sites of trunk 01/16/2006 07/01/2007 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 07/12/2021 Other ventral hernia without mention of obstruction or gangrene 03/26/2004 07/01/2007 THROMBOPHLEBITIS NOS(aka DVT) 07/21/2003 PULMON EMBOLISM/INFARCT(aka EMBOLISM) 07/21/2003 08/21/2009 documented as of this encounter (statuses as of 10/21/2021) [facility] of Past illness Narrative* Problem Noted Date Resolved Date Screening for colon cancer 11/24/201607/12 Overview: Added automatically from request for surgery [id number] Pain in joint, lower leg 11/14/2008 010 MASS IN SUBCUTANEOUS TISSUE 07/21/200808/04 Non-healing surgical wound 03/16/200705/18 Other injury of other sites of trunk 01/16/2006 07/01/2007 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 07/12/2021 Other ventral hernia without mention of obstruction or gangrene 03/26/2004 07/01/2007 THROMBOPHLEBITIS NOS(aka DVT) 07/21/2003 PULMON EMBOLISM/INFARCT(aka EMBOLISM) 07/21/2003 08/21/2009 documented as of this encounter (statuses as of 10/22/2021) [facility] of Past illness Narrative* Problem Noted Date Resolved Date Screening for colon cancer 11/24/201607/12 Overview: Added automatically from request for surgery [id number] Pain in joint, lower leg 11/14/2008 010 MASS IN SUBCUTANEOUS TISSUE 07/21/200808/04 Non-healing surgical wound 03/16/200705/18 Other injury of other sites of trunk 01/16/2006 07/01/2007 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 07/12/2021 Other ventral hernia without mention of obstruction or gangrene 03/26/2004 07/01/2007 THROMBOPHLEBITIS NOS(aka DVT) 07/21/2003 PULMON EMBOLISM/INFARCT(aka EMBOLISM) 07/21/2003 08/21/2009 documented as of this encounter (statuses as of 10/22/2021) [facility] of Past illness Narrative* Problem Noted Date Resolved Date Screening for colon cancer 11/24/201607/12 Overview: Added automatically from request for surgery [id number] Pain in joint, lower leg 11/14/2008 010 MASS IN SUBCUTANEOUS TISSUE 07/21/200808/04 Non-healing surgical wound 03/16/200705/18 Other injury of other sites of trunk 01/16/2006 07/01/2007 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 07/12/2021 Other ventral hernia without mention of obstruction or gangrene 03/26/2004 07/01/2007 THROMBOPHLEBITIS NOS(aka DVT) 07/21/2003 PULMON EMBOLISM/INFARCT(aka EMBOLISM) 07/21/2003 08/21/2009 documented as of this encounter (statuses as of 10/24/2021) [facility] of Past illness Narrative* Problem Noted Date Resolved Date Screening for colon cancer 11/24/201607/12 Overview: Added automatically from request for surgery [id number] Pain in joint, lower leg 11/14/2008 010 MASS IN SUBCUTANEOUS TISSUE 07/21/200808/04 Non-healing surgical wound 03/16/200705/18 Other injury of other sites of trunk 01/16/2006 07/01/2007 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 07/12/2021 Other ventral hernia without mention of obstruction or gangrene 03/26/2004 07/01/2007 THROMBOPHLEBITIS NOS(aka DVT) 07/21/2003 PULMON EMBOLISM/INFARCT(aka EMBOLISM) 07/21/2003 08/21/2009 documented as of this encounter (statuses as of 11/05/2021) [facility] of Past illness Narrative* Problem Noted Date Resolved Date Screening for colon cancer 11/24/201607/12 Overview: Added automatically from request for surgery [id number] Pain in joint, lower leg 11/14/2008 010 MASS IN SUBCUTANEOUS TISSUE 07/21/200808/04 Non-healing surgical wound 03/16/200705/18 Other injury of other sites of trunk 01/16/2006 07/01/2007 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 07/12/2021 Other ventral hernia without mention of obstruction or gangrene 03/26/2004 07/01/2007 THROMBOPHLEBITIS NOS(aka DVT) 07/21/2003 PULMON EMBOLISM/INFARCT(aka EMBOLISM) 07/21/2003 08/21/2009 documented as of this encounter (statuses as of 11/12/2021) [facility] of Past illness Narrative* Problem Noted Date Resolved Date Screening for colon cancer 11/24/201607/12 Overview: Added automatically from request for surgery [id number] Pain in joint, lower leg 11/14/2008 010 MASS IN SUBCUTANEOUS TISSUE 07/21/200808/04 Non-healing surgical wound 03/16/200705/18 Other injury of other sites of trunk 01/16/2006 07/01/2007 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 07/12/2021 Other ventral hernia without mention of obstruction or gangrene 03/26/2004 07/01/2007 THROMBOPHLEBITIS NOS(aka DVT) 07/21/2003 PULMON EMBOLISM/INFARCT(aka EMBOLISM) 07/21/2003 08/21/2009 documented as of this encounter (statuses as of 11/13/2021) [facility] of Past illness Narrative* Problem Noted Date Resolved Date Screening for colon cancer 11/24/201607/12 Overview: Added automatically from request for surgery [id number] Pain in joint, lower leg 11/14/2008 010 MASS IN SUBCUTANEOUS TISSUE 07/21/200808/04 Non-healing surgical wound 03/16/200705/18 Other injury of other sites of trunk 01/16/2006 07/01/2007 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 07/12/2021 Other ventral hernia without mention of obstruction or gangrene 03/26/2004 07/01/2007 THROMBOPHLEBITIS NOS(aka DVT) 07/21/2003 PULMON EMBOLISM/INFARCT(aka EMBOLISM) 07/21/2003 08/21/2009 documented as of this encounter (statuses as of 11/22/2021) [facility] of Past illness Narrative* Problem Noted Date Resolved Date Screening for colon cancer 11/24/201607/12 Overview: Added automatically from request for surgery [id number] Pain in joint, lower leg 11/14/2008 010 MASS IN SUBCUTANEOUS TISSUE 07/21/200808/04 Non-healing surgical wound 03/16/200705/18 Other injury of other sites of trunk 01/16/2006 07/01/2007 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 07/12/2021 Other ventral hernia without mention of obstruction or gangrene 03/26/2004 07/01/2007 THROMBOPHLEBITIS NOS(aka DVT) 07/21/2003 PULMON EMBOLISM/INFARCT(aka EMBOLISM) 07/21/2003 08/21/2009 documented as of this encounter (statuses as of 11/26/2021) [facility] of Past illness Narrative* Problem Noted Date Resolved Date Screening for colon cancer 11/24/201607/12 Overview: Added automatically from request for surgery [id number] Pain in joint, lower leg 11/14/2008 010 MASS IN SUBCUTANEOUS TISSUE 07/21/200808/04 Non-healing surgical wound 03/16/200705/18 Other injury of other sites of trunk 01/16/2006 07/01/2007 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 07/12/2021 Other ventral hernia without mention of obstruction or gangrene 03/26/2004 07/01/2007 THROMBOPHLEBITIS NOS(aka DVT) 07/21/2003 PULMON EMBOLISM/INFARCT(aka EMBOLISM) 07/21/2003 08/21/2009 documented as of this encounter (statuses as of 12/02/2021) [facility] of Past illness Narrative* Problem Noted Date Resolved Date Screening for colon cancer 11/24/201607/12 Overview: Added automatically from request for surgery [id number] Pain in joint, lower leg 11/14/2008 010 MASS IN SUBCUTANEOUS TISSUE 07/21/200808/04 Non-healing surgical wound 03/16/200705/18 Other injury of other sites of trunk 01/16/2006 07/01/2007 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 07/12/2021 Other ventral hernia without mention of obstruction or gangrene 03/26/2004 07/01/2007 THROMBOPHLEBITIS NOS(aka DVT) 07/21/2003 PULMON EMBOLISM/INFARCT(aka EMBOLISM) 07/21/2003 08/21/2009 documented as of this encounter (statuses as of 12/03/2021) [facility] of Past illness Narrative* Problem Noted Date Resolved Date Screening for colon cancer 11/24/201607/12 Overview: Added automatically from request for surgery [id number] Pain in joint, lower leg 11/14/2008 010 MASS IN SUBCUTANEOUS TISSUE 07/21/200808/04 Non-healing surgical wound 03/16/200705/18 Other injury of other sites of trunk 01/16/2006 07/01/2007 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 07/12/2021 Other ventral hernia without mention of obstruction or gangrene 03/26/2004 07/01/2007 THROMBOPHLEBITIS NOS(aka DVT) 07/21/2003 PULMON EMBOLISM/INFARCT(aka EMBOLISM) 07/21/2003 08/21/2009 documented as of this encounter (statuses as of 12/11/2021) [facility] illness Narrative* Problem Noted Date Resolved Date Screening for colon cancer 11/24/201607/12 Overview: Added automatically from request for surgery [id number] Pain in joint, lower leg 11/14/2008 010 MASS IN SUBCUTANEOUS TISSUE 07/21/200808/04 Non-healing surgical wound 03/16/200705/18 Other injury of other sites of trunk 01/16/2006 07/01/2007 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 07/12/2021 Other ventral hernia without mention of obstruction or gangrene 03/26/2004 07/01/2007 THROMBOPHLEBITIS NOS(aka DVT) 07/21/2003 PULMON EMBOLISM/INFARCT(aka EMBOLISM) 07/21/2003 08/21/2009 documented as of this encounter (statuses as of 12/16/2021) [facility] Narrative* Problem Noted Date Resolved Date Screening for colon cancer 11/24/201607/12 Overview: Added automatically from request for surgery [id number] Pain in joint, lower leg 11/14/2008 010 MASS IN SUBCUTANEOUS TISSUE 07/21/200808/04 Non-healing surgical wound 03/16/200705/18 Other injury of other sites of trunk 01/16/2006 07/01/2007 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 07/12/2021 Other ventral hernia without mention of obstruction or gangrene 03/26/2004 07/01/2007 THROMBOPHLEBITIS NOS(aka DVT) 07/21/2003 PULMON EMBOLISM/INFARCT(aka EMBOLISM) 07/21/2003 08/21/2009 documented as of this encounter (statuses as of 12/23/2021) [facility] Narrative* Problem Noted Date Resolved Date Screening for colon cancer 11/24/201607/12 Overview: Added automatically from request for surgery [id number] Pain in joint, lower leg 11/14/2008 010 MASS IN SUBCUTANEOUS TISSUE 07/21/200808/04 Non-healing surgical wound 03/16/200705/18 Other injury of other sites of trunk 01/16/2006 07/01/2007 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 07/12/2021 Other ventral hernia without mention of obstruction or gangrene 03/26/2004 07/01/2007 THROMBOPHLEBITIS NOS(aka DVT) 07/21/2003 PULMON EMBOLISM/INFARCT(aka EMBOLISM) 07/21/2003 08/21/2009 documented as of this encounter (statuses as of 12/26/2021) [facility] Narrative* Problem Noted Date Resolved Date Screening for colon cancer 11/24/201607/12 Overview: Added automatically from request for surgery [id number] Pain in joint, lower leg 11/14/2008 010 MASS IN SUBCUTANEOUS TISSUE 07/21/200808/04 Non-healing surgical wound 03/16/200705/18 Other injury of other sites of trunk 01/16/2006 07/01/2007 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 07/12/2021 Other ventral hernia without mention of obstruction or gangrene 03/26/2004 07/01/2007 THROMBOPHLEBITIS NOS(aka DVT) 07/21/2003 PULMON EMBOLISM/INFARCT(aka EMBOLISM) 07/21/2003 08/21/2009 documented as of this encounter (statuses as of 12/26/2021) [facility] Narrative* Problem Noted Date Resolved Date Screening for colon cancer 11/24/201607/12 Overview: Added automatically from request for surgery [id number] Pain in joint, lower leg 11/14/2008 010 MASS IN SUBCUTANEOUS TISSUE 07/21/200808/04 Non-healing surgical wound 03/16/200705/18 Other injury of other sites of trunk 01/16/2006 07/01/2007 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 07/12/2021 Other ventral hernia without mention of obstruction or gangrene 03/26/2004 07/01/2007 THROMBOPHLEBITIS NOS(aka DVT) 07/21/2003 PULMON EMBOLISM/INFARCT(aka EMBOLISM) 07/21/2003 08/21/2009 documented as of this encounter (statuses as of 01/01/2022) [facility] Narrative* Problem Noted Date Resolved Date Screening for colon cancer 11/24/201607/12 Overview: Added automatically from request for surgery [id number] Pain in joint, lower leg 11/14/2008 010 MASS IN SUBCUTANEOUS TISSUE 07/21/200808/04 Non-healing surgical wound 03/16/200705/18 Other injury of other sites of trunk 01/16/2006 07/01/2007 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 07/12/2021 Other ventral hernia without mention of obstruction or gangrene 03/26/2004 07/01/2007 THROMBOPHLEBITIS NOS(aka DVT) 07/21/2003 PULMON EMBOLISM/INFARCT(aka EMBOLISM) 07/21/2003 08/21/2009 documented as of this encounter (statuses as of 01/02/2022) [facility] Narrative* Problem Noted Date Resolved Date Screening for colon cancer 11/24/201607/12 Overview: Added automatically from request for surgery [id number] Pain in joint, lower leg 11/14/2008 010 MASS IN SUBCUTANEOUS TISSUE 07/21/200808/04 Non-healing surgical wound 03/16/200705/18 Other injury of other sites of trunk 01/16/2006 07/01/2007 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 07/12/2021 Other ventral hernia without mention of obstruction or gangrene 03/26/2004 07/01/2007 THROMBOPHLEBITIS NOS(aka DVT) 07/21/2003 PULMON EMBOLISM/INFARCT(aka EMBOLISM) 07/21/2003 08/21/2009 documented as of this encounter (statuses as of 01/04/2022) [facility] Narrative* Problem Noted Date Resolved Date Screening for colon cancer 11/24/201607/12 Overview: Added automatically from request for surgery [id number] Pain in joint, lower leg 11/14/2008 010 MASS IN SUBCUTANEOUS TISSUE 07/21/200808/04 Non-healing surgical wound 03/16/200705/18 Other injury of other sites of trunk 01/16/2006 07/01/2007 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 07/12/2021 Other ventral hernia without mention of obstruction or gangrene 03/26/2004 07/01/2007 THROMBOPHLEBITIS NOS(aka DVT) 07/21/2003 PULMON EMBOLISM/INFARCT(aka EMBOLISM) 07/21/2003 08/21/2009 documented as of this encounter (statuses as of 01/07/2022) [facility] Narrative* Problem Noted Date Resolved Date Screening for colon cancer 11/24/201607/12 Overview: Added automatically from request for surgery [id number] Pain in joint, lower leg 11/14/2008 010 MASS IN SUBCUTANEOUS TISSUE 07/21/200808/04 Non-healing surgical wound 03/16/200705/18 Other injury of other sites of trunk 01/16/2006 07/01/2007 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 07/12/2021 Other ventral hernia without mention of obstruction or gangrene 03/26/2004 07/01/2007 THROMBOPHLEBITIS NOS(aka DVT) 07/21/2003 PULMON EMBOLISM/INFARCT(aka EMBOLISM) 07/21/2003 08/21/2009 documented as of this encounter (statuses as of 01/07/2022) [facility]2017 History of Past illness Narrative* Problem Noted Date Resolved Date Screening for colon cancer 11/24/201607/12 Overview: Added automatically from request for surgery [id number] Pain in joint, lower leg 11/14/2008 010 MASS IN SUBCUTANEOUS TISSUE 07/21/200808/04 Non-healing surgical wound 03/16/200705/18 Other injury of other sites of trunk 01/16/2006 07/01/2007 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 07/12/2021 Other ventral hernia without mention of obstruction or gangrene 03/26/2004 07/01/2007 THROMBOPHLEBITIS NOS(aka DVT) 07/21/2003 PULMON EMBOLISM/INFARCT(aka EMBOLISM) 07/21/2003 08/21/2009 documented as of this encounter (statuses as of 01/09/2022) [facility]2017 History of Past illness Narrative* Problem Noted Date Resolved Date Screening for colon cancer 11/24/201607/12 Overview: Added automatically from request for surgery [id number] Pain in joint, lower leg 11/14/2008 010 MASS IN SUBCUTANEOUS TISSUE 07/21/200808/04 Non-healing surgical wound 03/16/200705/18 Other injury of other sites of trunk 01/16/2006 07/01/2007 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 07/12/2021 Other ventral hernia without mention of obstruction or gangrene 03/26/2004 07/01/2007 THROMBOPHLEBITIS NOS(aka DVT) 07/21/2003 PULMON EMBOLISM/INFARCT(aka EMBOLISM) 07/21/2003 08/21/2009 documented as of this encounter (statuses as of 01/09/2022) [facility] History of Past illness Narrative* Problem Noted Date Resolved Date Screening for colon cancer 11/24/201607/12 Overview: Added automatically from request for surgery [id number] Pain in joint, lower leg 11/14/2008 010 MASS IN SUBCUTANEOUS TISSUE 07/21/200808/04 Non-healing surgical wound 03/16/200705/18 Other injury of other sites of trunk 01/16/2006 07/01/2007 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 07/12/2021 Other ventral hernia without mention of obstruction or gangrene 03/26/2004 07/01/2007 THROMBOPHLEBITIS NOS(aka DVT) 07/21/2003 PULMON EMBOLISM/INFARCT(aka EMBOLISM) 07/21/2003 08/21/2009 documented as of this encounter (statuses as of 01/14/2022) [facility] History of Past illness Narrative* Problem Noted Date Resolved Date Screening for colon cancer 11/24/201607/12 Overview: Added automatically from request for surgery [id number] Pain in joint, lower leg 11/14/2008 010 MASS IN SUBCUTANEOUS TISSUE 07/21/200808/04 Non-healing surgical wound 03/16/200705/18 Other injury of other sites of trunk 01/16/2006 07/01/2007 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 07/12/2021 Other ventral hernia without mention of obstruction or gangrene 03/26/2004 07/01/2007 THROMBOPHLEBITIS NOS(aka DVT) 07/21/2003 PULMON EMBOLISM/INFARCT(aka EMBOLISM) 07/21/2003 08/21/2009 documented as of this encounter (statuses as of 01/20/2022) [facility] History of Past illness Narrative* Problem Noted Date Resolved Date Screening for colon cancer 11/24/201607/12 Overview: Added automatically from request for surgery [id number] Pain in joint, lower leg 11/14/2008 010 MASS IN SUBCUTANEOUS TISSUE 07/21/200808/04 Non-healing surgical wound 03/16/200705/18 Other injury of other sites of trunk 01/16/2006 07/01/2007 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 07/12/2021 Other ventral hernia without mention of obstruction or gangrene 03/26/2004 07/01/2007 THROMBOPHLEBITIS NOS(aka DVT) 07/21/2003 PULMON EMBOLISM/INFARCT(aka EMBOLISM) 07/21/2003 08/21/2009 documented as of this encounter (statuses as of 01/30/2022) [facility] History of Past illness Narrative* Problem Noted Date Resolved Date Screening for colon cancer 11/24/201607/12 Overview: Added automatically from request for surgery [id number] Pain in joint, lower leg 11/14/2008 010 MASS IN SUBCUTANEOUS TISSUE 07/21/200808/04 Non-healing surgical wound 03/16/200705/18 Other injury of other sites of trunk 01/16/2006 07/01/2007 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 07/12/2021 Other ventral hernia without mention of obstruction or gangrene 03/26/2004 07/01/2007 THROMBOPHLEBITIS NOS(aka DVT) 07/21/2003 PULMON EMBOLISM/INFARCT(aka EMBOLISM) 07/21/2003 08/21/2009 documented as of this encounter (statuses as of 01/30/2022) [facility] History of Past illness Narrative* Problem Noted Date Resolved Date Screening for colon cancer 11/24/201607/12 Overview: Added automatically from request for surgery [id number] Pain in joint, lower leg 11/14/2008 010 MASS IN SUBCUTANEOUS TISSUE 07/21/200808/04 Non-healing surgical wound 03/16/200705/18 Other injury of other sites of trunk 01/16/2006 07/01/2007 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 07/12/2021 Other ventral hernia without mention of obstruction or gangrene 03/26/2004 07/01/2007 THROMBOPHLEBITIS NOS(aka DVT) 07/21/2003 PULMON EMBOLISM/INFARCT(aka EMBOLISM) 07/21/2003 08/21/2009 documented as of this encounter (statuses as of 02/14/2022) [facility] History of Past illness Narrative* Problem Noted Date Resolved Date Screening for colon cancer 11/24/201607/12 Overview: Added automatically from request for surgery [id number] Pain in joint, lower leg 11/14/2008 010 MASS IN SUBCUTANEOUS TISSUE 07/21/200808/04 Non-healing surgical wound 03/16/200705/18 Other injury of other sites of trunk 01/16/2006 07/01/2007 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 07/12/2021 Other ventral hernia without mention of obstruction or gangrene 03/26/2004 07/01/2007 THROMBOPHLEBITIS NOS(aka DVT) 07/21/2003 PULMON EMBOLISM/INFARCT(aka EMBOLISM) 07/21/2003 08/21/2009 documented as of this encounter (statuses as of 02/18/2022) [facility] History of Past illness Narrative* Problem Noted Date Resolved Date Screening for colon cancer 11/24/201607/12 Overview: Added automatically from request for surgery [id number] Pain in joint, lower leg 11/14/2008 010 MASS IN SUBCUTANEOUS TISSUE 07/21/200808/04 Non-healing surgical wound 03/16/200705/18 Other injury of other sites of trunk 01/16/2006 07/01/2007 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 07/12/2021 Other ventral hernia without mention of obstruction or gangrene 03/26/2004 07/01/2007 THROMBOPHLEBITIS NOS(aka DVT) 07/21/2003 PULMON EMBOLISM/INFARCT(aka EMBOLISM) 07/21/2003 08/21/2009 documented as of this encounter (statuses as of 03/04/2022) [facility]2017 History of Past illness Narrative* Problem Noted Date Resolved Date Screening for colon cancer 11/24/201607/12 Overview: Added automatically from request for surgery [id number] Pain in joint, lower leg 11/14/2008 010 MASS IN SUBCUTANEOUS TISSUE 07/21/200808/04 Non-healing surgical wound 03/16/200705/18 Other injury of other sites of trunk 01/16/2006 07/01/2007 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 07/12/2021 Other ventral hernia without mention of obstruction or gangrene 03/26/2004 07/01/2007 THROMBOPHLEBITIS NOS(aka DVT) 07/21/2003 PULMON EMBOLISM/INFARCT(aka EMBOLISM) 07/21/2003 08/21/2009 documented as of this encounter (statuses as of 04/16/2022) [facility] History of Past illness Narrative* Problem Noted Date Resolved Date Screening for colon cancer 11/24/201607/12 Overview: Added automatically from request for surgery [id number] Pain in joint, lower leg 11/14/2008 010 MASS IN SUBCUTANEOUS TISSUE 07/21/200808/04 Non-healing surgical wound 03/16/200705/18 Other injury of other sites of trunk 01/16/2006 07/01/2007 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 07/12/2021 Other ventral hernia without mention of obstruction or gangrene 03/26/2004 07/01/2007 THROMBOPHLEBITIS NOS(aka DVT) 07/21/2003 PULMON EMBOLISM/INFARCT(aka EMBOLISM) 07/21/2003 08/21/2009 documented as of this encounter (statuses as of 04/17/2022) [facility] History of Past illness Narrative* Problem Noted Date Resolved Date Screening for colon cancer 11/24/201607/12 Overview: Added automatically from request for surgery [id number] Pain in joint, lower leg 11/14/2008 010 MASS IN SUBCUTANEOUS TISSUE 07/21/200808/04 Non-healing surgical wound 03/16/200705/18 Other injury of other sites of trunk 01/16/2006 07/01/2007 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 07/12/2021 Other ventral hernia without mention of obstruction or gangrene 03/26/2004 07/01/2007 THROMBOPHLEBITIS NOS(aka DVT) 07/21/2003 PULMON EMBOLISM/INFARCT(aka EMBOLISM) 07/21/2003 08/21/2009 documented as of this encounter (statuses as of 04/29/2022) [facility]2017 History of Past illness Narrative* Problem Noted Date Resolved Date Screening for colon cancer 11/24/201607/12 Overview: Added automatically from request for surgery [id number] Pain in joint, lower leg 11/14/2008 010 MASS IN SUBCUTANEOUS TISSUE 07/21/200808/04 Non-healing surgical wound 03/16/200705/18 Other injury of other sites of trunk 01/16/2006 07/01/2007 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 07/12/2021 Other ventral hernia without mention of obstruction or gangrene 03/26/2004 07/01/2007 THROMBOPHLEBITIS NOS(aka DVT) 07/21/2003 PULMON EMBOLISM/INFARCT(aka EMBOLISM) 07/21/2003 08/21/2009 documented as of this encounter (statuses as of 04/30/2022) [facility] History of Past illness Narrative* Problem Noted Date Resolved Date Screening for colon cancer 11/24/201607/12 Overview: Added automatically from request for surgery [id number] Pain in joint, lower leg 11/14/2008 010 MASS IN SUBCUTANEOUS TISSUE 07/21/200808/04 Non-healing surgical wound 03/16/200705/18 Other injury of other sites of trunk 01/16/2006 07/01/2007 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 07/12/2021 Other ventral hernia without mention of obstruction or gangrene 03/26/2004 07/01/2007 THROMBOPHLEBITIS NOS(aka DVT) 07/21/2003 PULMON EMBOLISM/INFARCT(aka EMBOLISM) 07/21/2003 08/21/2009 documented as of this encounter (statuses as of 05/06/2022) [facility]2017 History of Past illness Narrative* Problem Noted Date Resolved Date Screening for colon cancer 11/24/201607/12 Overview: Added automatically from request for surgery [id number] Pain in joint, lower leg 11/14/2008 010 MASS IN SUBCUTANEOUS TISSUE 07/21/200808/04 Non-healing surgical wound 03/16/200705/18 Other injury of other sites of trunk 01/16/2006 07/01/2007 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 07/12/2021 Other ventral hernia without mention of obstruction or gangrene 03/26/2004 07/01/2007 THROMBOPHLEBITIS NOS(aka DVT) 07/21/2003 PULMON EMBOLISM/INFARCT(aka EMBOLISM) 07/21/2003 08/21/2009 documented as of this encounter (statuses as of 05/15/2022) [facility]2017 History of Past illness Narrative* Problem Noted Date Resolved Date Screening for colon cancer 11/24/201607/12 Overview: Added automatically from request for surgery [id number] Pain in joint, lower leg 11/14/2008 010 MASS IN SUBCUTANEOUS TISSUE 07/21/200808/04 Non-healing surgical wound 03/16/200705/18 Other injury of other sites of trunk 01/16/2006 07/01/2007 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 07/12/2021 Other ventral hernia without mention of obstruction or gangrene 03/26/2004 07/01/2007 THROMBOPHLEBITIS NOS(aka DVT) 07/21/2003 PULMON EMBOLISM/INFARCT(aka EMBOLISM) 07/21/2003 08/21/2009 documented as of this encounter (statuses as of 05/16/2022) [facility]2017 History of Past illness Narrative* Problem Noted Date Resolved Date Screening for colon cancer 11/24/201607/12 Overview: Added automatically from request for surgery [id number] Pain in joint, lower leg 11/14/2008 010 MASS IN SUBCUTANEOUS TISSUE 07/21/200808/04 Non-healing surgical wound 03/16/200705/18 Other injury of other sites of trunk 01/16/2006 07/01/2007 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 07/12/2021 Other ventral hernia without mention of obstruction or gangrene 03/26/2004 07/01/2007 THROMBOPHLEBITIS NOS(aka DVT) 07/21/2003 PULMON EMBOLISM/INFARCT(aka EMBOLISM) 07/21/2003 08/21/2009 documented as of this encounter (statuses as of 05/19/2022) [facility] History of Past illness Narrative* Problem Noted Date Resolved Date Screening for colon cancer 11/24/201607/12 Overview: Added automatically from request for surgery [id number] Pain in joint, lower leg 11/14/2008 010 MASS IN SUBCUTANEOUS TISSUE 07/21/200808/04 Non-healing surgical wound 03/16/200705/18 Other injury of other sites of trunk 01/16/2006 07/01/2007 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 07/12/2021 Other ventral hernia without mention of obstruction or gangrene 03/26/2004 07/01/2007 THROMBOPHLEBITIS NOS(aka DVT) 07/21/2003 PULMON EMBOLISM/INFARCT(aka EMBOLISM) 07/21/2003 08/21/2009 documented as of this encounter (statuses as of 05/30/2022) [facility] History of Past illness Narrative* Problem Noted Date Resolved Date Screening for colon cancer 11/24/201607/12 Overview: Added automatically from request for surgery [id number] Pain in joint, lower leg 11/14/2008 010 MASS IN SUBCUTANEOUS TISSUE 07/21/200808/04 Non-healing surgical wound 03/16/200705/18 Other injury of other sites of trunk 01/16/2006 07/01/2007 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 07/12/2021 Other ventral hernia without mention of obstruction or gangrene 03/26/2004 07/01/2007 THROMBOPHLEBITIS NOS(aka DVT) 07/21/2003 PULMON EMBOLISM/INFARCT(aka EMBOLISM) 07/21/2003 08/21/2009 documented as of this encounter (statuses as of 06/04/2022) [facility] History of Past illness Narrative* Problem Noted Date Resolved Date Screening for colon cancer 11/24/201607/12 Overview: Added automatically from request for surgery [id number] Pain in joint, lower leg 11/14/2008 010 MASS IN SUBCUTANEOUS TISSUE 07/21/200808/04 Non-healing surgical wound 03/16/200705/18 Other injury of other sites of trunk 01/16/2006 07/01/2007 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 07/12/2021 Other ventral hernia without mention of obstruction or gangrene 03/26/2004 07/01/2007 THROMBOPHLEBITIS NOS(aka DVT) 07/21/2003 PULMON EMBOLISM/INFARCT(aka EMBOLISM) 07/21/2003 08/21/2009 documented as of this encounter (statuses as of 06/26/2022) [facility] History of Past illness Narrative* Problem Noted Date Resolved Date Screening for colon cancer 11/24/201607/12 Overview: Added automatically from request for surgery [id number] Pain in joint, lower leg 11/14/2008 010 MASS IN SUBCUTANEOUS TISSUE 07/21/200808/04 Non-healing surgical wound 03/16/200705/18 Other injury of other sites of trunk 01/16/2006 07/01/2007 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 07/12/2021 Other ventral hernia without mention of obstruction or gangrene 03/26/2004 07/01/2007 THROMBOPHLEBITIS NOS(aka DVT) 07/21/2003 PULMON EMBOLISM/INFARCT(aka EMBOLISM) 07/21/2003 08/21/2009 documented as of this encounter (statuses as of 06/27/2022) [facility] History of Past illness Narrative* Problem Noted Date Resolved Date Screening for colon cancer 11/24/201607/12 Overview: Added automatically from request for surgery [id number] Pain in joint, lower leg 11/14/2008 010 MASS IN SUBCUTANEOUS TISSUE 07/21/200808/04 Non-healing surgical wound 03/16/200705/18 Other injury of other sites of trunk 01/16/2006 07/01/2007 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 07/12/2021 Other ventral hernia without mention of obstruction or gangrene 03/26/2004 07/01/2007 THROMBOPHLEBITIS NOS(aka DVT) 07/21/2003 PULMON EMBOLISM/INFARCT(aka EMBOLISM) 07/21/2003 08/21/2009 documented as of this encounter (statuses as of 06/30/2022) [facility] History of Past illness Narrative* Problem Noted Date Resolved Date Screening for colon cancer 11/24/201607/12 Overview: Added automatically from request for surgery [id number] Pain in joint, lower leg 11/14/2008 010 MASS IN SUBCUTANEOUS TISSUE 07/21/200808/04 Non-healing surgical wound 03/16/200705/18 Other injury of other sites of trunk 01/16/2006 07/01/2007 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 07/12/2021 Other ventral hernia without mention of obstruction or gangrene 03/26/2004 07/01/2007 THROMBOPHLEBITIS NOS(aka DVT) 07/21/2003 PULMON EMBOLISM/INFARCT(aka EMBOLISM) 07/21/2003 08/21/2009 documented as of this encounter (statuses as of 07/01/2022) [facility] History of Past illness Narrative* Problem Noted Date Resolved Date Screening for colon cancer 11/24/201607/12 Overview: Added automatically from request for surgery [id number] Pain in joint, lower leg 11/14/2008 010 MASS IN SUBCUTANEOUS TISSUE 07/21/200808/04 Non-healing surgical wound 03/16/200705/18 Other injury of other sites of trunk 01/16/2006 07/01/2007 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 07/12/2021 Other ventral hernia without mention of obstruction or gangrene 03/26/2004 07/01/2007 THROMBOPHLEBITIS NOS(aka DVT) 07/21/2003 PULMON EMBOLISM/INFARCT(aka EMBOLISM) 07/21/2003 08/21/2009 documented as of this encounter (statuses as of 07/03/2022) [facility] History of Past illness Narrative* Problem Noted Date Resolved Date Screening for colon cancer 11/24/201607/12 Overview: Added automatically from request for surgery [id number] Pain in joint, lower leg 11/14/2008 010 MASS IN SUBCUTANEOUS TISSUE 07/21/200808/04 Non-healing surgical wound 03/16/200705/18 Other injury of other sites of trunk 01/16/2006 07/01/2007 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 07/12/2021 Other ventral hernia without mention of obstruction or gangrene 03/26/2004 07/01/2007 THROMBOPHLEBITIS NOS(aka DVT) 07/21/2003 PULMON EMBOLISM/INFARCT(aka EMBOLISM) 07/21/2003 08/21/2009 documented as of this encounter (statuses as of 07/14/2022) [facility] History of Past illness Narrative* Problem Noted Date Resolved Date Screening for colon cancer 11/24/201607/12 Overview: Added automatically from request for surgery [id number] Pain in joint, lower leg 11/14/2008 010 MASS IN SUBCUTANEOUS TISSUE 07/21/200808/04 Non-healing surgical wound 03/16/200705/18 Other injury of other sites of trunk 01/16/2006 07/01/2007 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 07/12/2021 Other ventral hernia without mention of obstruction or gangrene 03/26/2004 07/01/2007 THROMBOPHLEBITIS NOS(aka DVT) 07/21/2003 PULMON EMBOLISM/INFARCT(aka EMBOLISM) 07/21/2003 08/21/2009 documented as of this encounter (statuses as of 07/31/2022) [facility] History of Past illness Narrative* Problem Noted Date Resolved Date Screening for colon cancer 11/24/201607/12 Overview: Added automatically from request for surgery [id number] Pain in joint, lower leg 11/14/2008 010 MASS IN SUBCUTANEOUS TISSUE 07/21/200808/04 Non-healing surgical wound 03/16/200705/18 Other injury of other sites of trunk 01/16/2006 07/01/2007 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 07/12/2021 Other ventral hernia without mention of obstruction or gangrene 03/26/2004 07/01/2007 THROMBOPHLEBITIS NOS(aka DVT) 07/21/2003 PULMON EMBOLISM/INFARCT(aka EMBOLISM) 07/21/2003 08/21/2009 documented as of this encounter (statuses as of 08/05/2022) [facility] History of Past illness Narrative* Problem Noted Date Resolved Date Screening for colon cancer 11/24/201607/12 Overview: Added automatically from request for surgery [id number] Pain in joint, lower leg 11/14/2008 010 MASS IN SUBCUTANEOUS TISSUE 07/21/200808/04 Non-healing surgical wound 03/16/200705/18 Other injury of other sites of trunk 01/16/2006 07/01/2007 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 07/12/2021 Other ventral hernia without mention of obstruction or gangrene 03/26/2004 07/01/2007 THROMBOPHLEBITIS NOS(aka DVT) 07/21/2003 PULMON EMBOLISM/INFARCT(aka EMBOLISM) 07/21/2003 08/21/2009 documented as of this encounter (statuses as of 08/14/2022) [facility] History of Past illness Narrative* Problem Noted Date Resolved Date Screening for colon cancer 11/24/201607/12 Overview: Added automatically from request for surgery [id number] Pain in joint, lower leg 11/14/2008 010 MASS IN SUBCUTANEOUS TISSUE 07/21/200808/04 Non-healing surgical wound 03/16/200705/18 Other injury of other sites of trunk 01/16/2006 07/01/2007 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 07/12/2021 Other ventral hernia without mention of obstruction or gangrene 03/26/2004 07/01/2007 THROMBOPHLEBITIS NOS(aka DVT) 07/21/2003 PULMON EMBOLISM/INFARCT(aka EMBOLISM) 07/21/2003 08/21/2009 documented as of this encounter (statuses as of 10/02/2022) [facility] History of Past illness Narrative* Problem Noted Date Resolved Date Screening for colon cancer 11/24/201607/12 Overview: Added automatically from request for surgery [id number] Pain in joint, lower leg 11/14/2008 010 MASS IN SUBCUTANEOUS TISSUE 07/21/200808/04 Non-healing surgical wound 03/16/200705/18 Other injury of other sites of trunk 01/16/2006 07/01/2007 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 07/12/2021 Other ventral hernia without mention of obstruction or gangrene 03/26/2004 07/01/2007 THROMBOPHLEBITIS NOS(aka DVT) 07/21/2003 PULMON EMBOLISM/INFARCT(aka EMBOLISM) 07/21/2003 08/21/2009 documented as of this encounter (statuses as of 10/09/2022) [facility] of Past illness Narrative* Problem Noted Date Diagnosed Date Resolved Date Screening for colon cancer 11/24/2016 0 07/12/2021 Overview: Added automatically from request for surgery [id number] Pain in joint, lower leg 11/14/2008 MASS IN SUBCUTANEOUS TISSUE 07/21/2008 08/18/2018 Non-healing surgical wound 03/16/2007 0 05/18/2009 Other injury of other sites of trunk 01/16/2006 07/01/2007 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 07/12/2021 Other ventral hernia without mention of obstruction or gangrene 03/26/2004 07/01/2007 THROMBOPHLEBITIS NOS(aka DVT) 07/21/2003 08/21/2009 PULMON EMBOLISM/INFARCT(aka EMBOLISM) 07/21/2003 08/21/2009 documented as of this encounter (statuses as of 10/16/2022) [facility] of Past illness Narrative* Problem Noted Date Diagnosed Date Resolved Date Screening for colon cancer 11/24/2016 0 07/12/2021 Overview: Added automatically from request for surgery [id number] Pain in joint, lower leg 11/14/2008 MASS IN SUBCUTANEOUS TISSUE 07/21/2008 08/18/2018 Non-healing surgical wound 03/16/2007 0 05/18/2009 Other injury of other sites of trunk 01/16/2006 07/01/2007 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 07/12/2021 Other ventral hernia without mention of obstruction or gangrene 03/26/2004 07/01/2007 THROMBOPHLEBITIS NOS(aka DVT) 07/21/2003 08/21/2009 PULMON EMBOLISM/INFARCT(aka EMBOLISM) 07/21/2003 08/21/2009 documented as of this encounter (statuses as of 12/05/2022) [facility] Past illness Narrative* Problem Noted Date Diagnosed Date Resolved Date Screening for colon cancer 11/24/2016 0 07/12/2021 Overview: Added automatically from request for surgery [id number] Pain in joint, lower leg 11/14/2008 MASS IN SUBCUTANEOUS TISSUE 07/21/2008 08/18/2018 Non-healing surgical wound 03/16/2007 0 05/18/2009 Other injury of other sites of trunk 01/16/2006 07/01/2007 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 07/12/2021 Other ventral hernia without mention of obstruction or gangrene 03/26/2004 07/01/2007 THROMBOPHLEBITIS NOS(aka DVT) 07/21/2003 08/21/2009 PULMON EMBOLISM/INFARCT(aka EMBOLISM) 07/21/2003 08/21/2009 documented as of this encounter (statuses as of 12/22/2022) [facility] Past illness Narrative* Problem Noted Date Diagnosed Date Resolved Date Screening for colon cancer 11/24/2016 0 07/12/2021 Overview: Added automatically from request for surgery [id number] Pain in joint, lower leg 11/14/2008 MASS IN SUBCUTANEOUS TISSUE 07/21/2008 08/18/2018 Non-healing surgical wound 03/16/2007 0 05/18/2009 Other injury of other sites of trunk 01/16/2006 07/01/2007 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 07/12/2021 Other ventral hernia without mention of obstruction or gangrene 03/26/2004 07/01/2007 THROMBOPHLEBITIS NOS(aka DVT) 07/21/2003 08/21/2009 PULMON EMBOLISM/INFARCT(aka EMBOLISM) 07/21/2003 08/21/2009 documented as of this encounter (statuses as of 12/24/2022) [facility] Past illness Narrative* Problem Noted Date Diagnosed Date Resolved Date Screening for colon cancer 11/24/2016 0 07/12/2021 Overview: Added automatically from request for surgery [id number] Pain in joint, lower leg 11/14/2008 MASS IN SUBCUTANEOUS TISSUE 07/21/2008 08/18/2018 Non-healing surgical wound 03/16/2007 0 05/18/2009 Other injury of other sites of trunk 01/16/2006 07/01/2007 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 07/12/2021 Other ventral hernia without mention of obstruction or gangrene 03/26/2004 07/01/2007 THROMBOPHLEBITIS NOS(aka DVT) 07/21/2003 08/21/2009 PULMON EMBOLISM/INFARCT(aka EMBOLISM) 07/21/2003 08/21/2009 documented as of this encounter (statuses as of 01/15/2023) [facility] History of Past illness Narrative* Problem Noted Date Diagnosed Date Resolved Date Screening for colon cancer 11/24/2016 0 07/12/2021 Overview: Added automatically from request for surgery [id number] Pain in joint, lower leg 11/14/2008 MASS IN SUBCUTANEOUS TISSUE 07/21/2008 08/18/2018 Non-healing surgical wound 03/16/2007 0 05/18/2009 Other injury of other sites of trunk 01/16/2006 07/01/2007 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 07/12/2021 Other ventral hernia without mention of obstruction or gangrene 03/26/2004 07/01/2007 THROMBOPHLEBITIS NOS(aka DVT) 07/21/2003 08/21/2009 PULMON EMBOLISM/INFARCT(aka EMBOLISM) 07/21/2003 08/21/2009 documented as of this encounter (statuses as of 01/15/2023) [facility] History of Past illness Narrative* Problem Noted Date Diagnosed Date Resolved Date Screening for colon cancer 11/24/2016 0 07/12/2021 Overview: Added automatically from request for surgery [id number] Pain in joint, lower leg 11/14/2008 MASS IN SUBCUTANEOUS TISSUE 07/21/2008 08/18/2018 Non-healing surgical wound 03/16/2007 0 05/18/2009 Other injury of other sites of trunk 01/16/2006 07/01/2007 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 07/12/2021 Other ventral hernia without mention of obstruction or gangrene 03/26/2004 07/01/2007 THROMBOPHLEBITIS NOS(aka DVT) 07/21/2003 08/21/2009 PULMON EMBOLISM/INFARCT(aka EMBOLISM) 07/21/2003 08/21/2009 documented as of this encounter (statuses as of 02/08/2023) [facility] History of Past illness Narrative* Problem Noted Date Diagnosed Date Resolved Date Screening for colon cancer 11/24/2016 0 07/12/2021 Overview: Added automatically from request for surgery [id number] Pain in joint, lower leg 11/14/2008 MASS IN SUBCUTANEOUS TISSUE 07/21/2008 08/18/2018 Non-healing surgical wound 03/16/2007 0 05/18/2009 Other injury of other sites of trunk 01/16/2006 07/01/2007 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 07/12/2021 Other ventral hernia without mention of obstruction or gangrene 03/26/2004 07/01/2007 THROMBOPHLEBITIS NOS(aka DVT) 07/21/2003 08/21/2009 PULMON EMBOLISM/INFARCT(aka EMBOLISM) 07/21/2003 08/21/2009 documented as of this encounter (statuses as of 02/08/2023) [facility] History of Past illness Narrative* Problem Noted Date Diagnosed Date Resolved Date Screening for colon cancer 11/24/2016 0 07/12/2021 Overview: Added automatically from request for surgery [id number] Pain in joint, lower leg 11/14/2008 MASS IN SUBCUTANEOUS TISSUE 07/21/2008 08/18/2018 Non-healing surgical wound 03/16/2007 0 05/18/2009 Other injury of other sites of trunk 01/16/2006 07/01/2007 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 07/12/2021 Other ventral hernia without mention of obstruction or gangrene 03/26/2004 07/01/2007 THROMBOPHLEBITIS NOS(aka DVT) 07/21/2003 08/21/2009 PULMON EMBOLISM/INFARCT(aka EMBOLISM) 07/21/2003 08/21/2009 documented as of this encounter (statuses as of 02/08/2023) [facility] History of Past illness Narrative* Problem Noted Date Diagnosed Date Resolved Date Screening for colon cancer 11/24/2016 0 07/12/2021 Overview: Added automatically from request for surgery [id number] Pain in joint, lower leg 11/14/2008 MASS IN SUBCUTANEOUS TISSUE 07/21/2008 08/18/2018 Non-healing surgical wound 03/16/2007 0 05/18/2009 Other injury of other sites of trunk 01/16/2006 07/01/2007 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 07/12/2021 Other ventral hernia without mention of obstruction or gangrene 03/26/2004 07/01/2007 THROMBOPHLEBITIS NOS(aka DVT) 07/21/2003 08/21/2009 PULMON EMBOLISM/INFARCT(aka EMBOLISM) 07/21/2003 08/21/2009 documented as of this encounter (statuses as of 02/08/2023) [facility] History of Past illness Narrative* Problem Noted Date Diagnosed Date Resolved Date Screening for colon cancer 11/24/2016 0 07/12/2021 Overview: Added automatically from request for surgery [id number] Pain in joint, lower leg 11/14/2008 MASS IN SUBCUTANEOUS TISSUE 07/21/2008 08/18/2018 Non-healing surgical wound 03/16/2007 0 05/18/2009 Other injury of other sites of trunk 01/16/2006 07/01/2007 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 07/12/2021 Other ventral hernia without mention of obstruction or gangrene 03/26/2004 07/01/2007 THROMBOPHLEBITIS NOS(aka DVT) 07/21/2003 08/21/2009 PULMON EMBOLISM/INFARCT(aka EMBOLISM) 07/21/2003 08/21/2009 documented as of this encounter (statuses as of 02/16/2023) [facility] History of Past illness Narrative* Problem Noted Date Diagnosed Date Resolved Date Screening for colon cancer 11/24/2016 0 07/12/2021 Overview: Added automatically from request for surgery [id number] Pain in joint, lower leg 11/14/2008 MASS IN SUBCUTANEOUS TISSUE 07/21/2008 08/18/2018 Non-healing surgical wound 03/16/2007 0 05/18/2009 Other injury of other sites of trunk 01/16/2006 07/01/2007 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 07/12/2021 Other ventral hernia without mention of obstruction or gangrene 03/26/2004 07/01/2007 THROMBOPHLEBITIS NOS(aka DVT) 07/21/2003 08/21/2009 PULMON EMBOLISM/INFARCT(aka EMBOLISM) 07/21/2003 08/21/2009 documented as of this encounter (statuses as of 03/03/2023) [facility] History of Past illness Narrative* Problem Noted Date Diagnosed Date Resolved Date Screening for colon cancer 11/24/2016 0 07/12/2021 Overview: Added automatically from request for surgery [id number] Pain in joint, lower leg 11/14/2008 MASS IN SUBCUTANEOUS TISSUE 07/21/2008 08/18/2018 Non-healing surgical wound 03/16/2007 0 05/18/2009 Other injury of other sites of trunk 01/16/2006 07/01/2007 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 07/12/2021 Other ventral hernia without mention of obstruction or gangrene 03/26/2004 07/01/2007 THROMBOPHLEBITIS NOS(aka DVT) 07/21/2003 08/21/2009 PULMON EMBOLISM/INFARCT(aka EMBOLISM) 07/21/2003 08/21/2009 documented as of this encounter (statuses as of 05/18/2023) [facility] History of Past illness Narrative* Problem Noted Date Diagnosed Date Resolved Date Screening for colon cancer 11/24/2016 0 07/12/2021 Overview: Added automatically from request for surgery [id number] Pain in joint, lower leg 11/14/2008 MASS IN SUBCUTANEOUS TISSUE 07/21/2008 08/18/2018 Non-healing surgical wound 03/16/2007 0 05/18/2009 Other injury of other sites of trunk 01/16/2006 07/01/2007 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 07/12/2021 Other ventral hernia without mention of obstruction or gangrene 03/26/2004 07/01/2007 THROMBOPHLEBITIS NOS(aka DVT) 07/21/2003 08/21/2009 PULMON EMBOLISM/INFARCT(aka EMBOLISM) 07/21/2003 08/21/2009 documented as of this encounter (statuses as of 05/20/2023) [facility] History of Past illness Narrative* Problem Noted Date Diagnosed Date Resolved Date Screening for colon cancer 11/24/2016 0 07/12/2021 Overview: Added automatically from request for surgery [id number] Pain in joint, lower leg 11/14/2008 MASS IN SUBCUTANEOUS TISSUE 07/21/2008 08/18/2018 Non-healing surgical wound 03/16/2007 0 05/18/2009 Other injury of other sites of trunk 01/16/2006 07/01/2007 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 07/12/2021 Other ventral hernia without mention of obstruction or gangrene 03/26/2004 07/01/2007 THROMBOPHLEBITIS NOS(aka DVT) 07/21/2003 08/21/2009 PULMON EMBOLISM/INFARCT(aka EMBOLISM) 07/21/2003 08/21/2009 documented as of this encounter (statuses as of 06/02/2023) [facility] History of Past illness Narrative* Problem Noted Date Diagnosed Date Resolved Date Screening for colon cancer 11/24/2016 0 07/12/2021 Overview: Added automatically from request for surgery [id number] Pain in joint, lower leg 11/14/2008 MASS IN SUBCUTANEOUS TISSUE 07/21/2008 08/18/2018 Non-healing surgical wound 03/16/2007 0 05/18/2009 Other injury of other sites of trunk 01/16/2006 07/01/2007 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 07/12/2021 Other ventral hernia without mention of obstruction or gangrene 03/26/2004 07/01/2007 THROMBOPHLEBITIS NOS(aka DVT) 07/21/2003 08/21/2009 PULMON EMBOLISM/INFARCT(aka EMBOLISM) 07/21/2003 08/21/2009 documented as of this encounter (statuses as of 06/04/2023) [facility] Diagnosis BENIGN HYPERTENSION(aka HTN)- Primary Essential [...] [facility] pain, unspecified [facility] Diagnosis Left upper quadrant abdominal [facility] Diagnosis Left upper quadrant abdominal [facility] Diagnosis Insomnia, unspecified type [facility] Diagnosis Rib pain on left side- Primary Chest pain, unspecified [facility]* Diagnosis Lumbar spondylosis- Primary Lumbosacral spondylosis without myelopathy Other chronic pain Thoracic spine pain Pain in thoracic spine Myofascial pain Mylagia and myositis, unspecified [facility] Diagnosis Lumbar spondylosis Lumbosacral spondylosis without myelopathy Thoracic spine pain Pain in thoracic spine [facility] Diagnosis Rib pain Chest pain, unspecified [facility] Diagnosis Chronic midline low back pain with sciatica, sciatica laterality unspecified- Primary [facility] Diagnosis Insomnia, unspecified type [facility] Diagnosis Chronic midline low back pain with sciatica, sciatica laterality unspecified- Primary [facility] Diagnosis Lymphedema- Primary Other lymphedema [facility]* Diagnosis Lymphedema- Primary Other lymphedema Lumbar spondylosis Lumbosacral spondylosis without myelopathy Thoracic spine pain Pain in thoracic spine Myofascial pain Mylagia and myositis, unspecified [facility]* Diagnosis Bilateral leg edema Edema documented in this encounter [facility] note* Diagnosis Lymphedema- Primary Other lymphedema [facility]* Diagnosis Lumbar spondylosis- Primary Lumbosacral spondylosis without myelopathy [facility]* Diagnosis Lymphedema- Primary Other lymphedema Lumbar spondylosis Lumbosacral spondylosis without myelopathy Lumbar spondylosis Lumbosacral spondylosis without myelopathy documented in this encounter [facility] note* Diagnosis Lymphedema- Primary Other lymphedema Lumbar spondylosis Lumbosacral spondylosis without myelopathy Lumbar spondylosis Lumbosacral spondylosis without myelopathy documented in this encounter [facility] note* Diagnosis Lumbar spondylosis Lumbosacral spondylosis without myelopathy Lumbar spondylosis Lumbosacral spondylosis without myelopathy documented in this encounter [facility] note* Diagnosis Lumbar spondylosis- Primary Lumbosacral spondylosis without myelopathy Myofascial pain Mylagia and myositis, unspecified Other chronic pain Lumbar spondylosis Lumbosacral spondylosis without myelopathy documented in this encounter [facility] note* Diagnosis Lymphedema- Primary Other lymphedema Lumbar spondylosis Lumbosacral spondylosis without myelopathy [facility] Diagnosis Leg swelling- Primary Swelling of limb Shortness of breath Shortness of breath Abdominal distension Flatulence, eructation, and gas pain Function kidney decreased Unspecified disorder of kidney and ureter Lumbar spondylosis Lumbosacral spondylosis without myelopathy documented in this encounter [facility] note* Diagnosis Abdominal distension Flatulence, eructation, and gas pain Lumbar spondylosis Lumbosacral spondylosis without myelopathy [facility] Diagnosis Lymphedema- Primary Other lymphedema Lumbar spondylosis Lumbosacral spondylosis without myelopathy [facility] Diagnosis Bilateral leg edema Edema Lumbar spondylosis Lumbosacral spondylosis without myelopathy [facility] Diagnosis Insomnia, unspecified type [facility]* Diagnosis Lumbar spondylosis- Primary Lumbosacral spondylosis without myelopathy Myofascial pain Mylagia and myositis, unspecified [facility]* Diagnosis Lumbar spondylosis- Primary Lumbosacral spondylosis without myelopathy Lumbar spondylosis Lumbosacral spondylosis without myelopathy [facility] Diagnosis Female stress incontinence- Primary Lumbar spondylosis Lumbosacral spondylosis without myelopathy [facility] Diagnosis Insomnia, unspecified type [facility]* Diagnosis C. difficile colitis- Primary Intestinal infection due to clostridium difficile Rectal bleeding Hemorrhage of rectum and anus Change in stool Nonspecific abnormal finding in stool contents Fall, initial encounter [facility] Diagnosis Lumbar spondylosis- Primary Lumbosacral spondylosis without myelopathy Anxiety due to invasive procedure [facility] Diagnosis Dysuria- Primary Female stress incontinence Leg swelling Swelling of limb Chronic knee pain, unspecified laterality Chronic right-sided low back pain without sciatica Change in stool Nonspecific abnormal finding in stool contents [facility] Diagnosis Female stress incontinence- Primary Urge urinary incontinence Urge incontinence [facility] Diagnosis Lumbar spondylosis- Primary Lumbosacral spondylosis without myelopathy [facility] Diagnosis Insomnia, unspecified type [facility] Diagnosis Chronic bilateral low back pain without sciatica- Primary Lumbar spondylosis Lumbosacral spondylosis without myelopathy [facility] Diagnosis Chronic bilateral low back pain without sciatica- Primary Lumbar spondylosis Lumbosacral spondylosis without myelopathy [facility] Diagnosis Lumbar spondylosis- Primary Lumbosacral spondylosis without myelopathy Chronic bilateral low back pain without sciatica [facility]* Diagnosis Insomnia, unspecified type- Primary [facility] Diagnosis Lumbar spondylosis- Primary Lumbosacral spondylosis without myelopathy Myofascial pain Mylagia and myositis, unspecified documented in this encounter [facility] note* Diagnosis Rib pain Chest pain, unspecified [facility]* Diagnosis Female stress incontinence- Primary Chronic right-sided low back pain without sciatica BENIGN HYPERTENSION(aka HTN) Essential hypertension, benign Hypothyroidism, acquired Unspecified hypothyroidism Insomnia, unspecified type Leg swelling Swelling of limb Decreased glomerular filtration rate (GFR) Chronic knee pain, unspecified laterality Acute pain of left shoulder documented in this encounter [facility] note* Diagnosis Decreased glomerular filtration rate (GFR)- Primary [facility] Diagnosis Primary osteoarthritis of both shoulders- Primary Lumbar spondylosis Lumbosacral spondylosis without myelopathy Myofascial pain Mylagia and myositis, unspecified Rotator cuff impingement syndrome, unspecified laterality [facility]* Diagnosis Lumbar spondylosis Lumbosacral spondylosis without myelopathy Spinal stenosis of lumbar region without neurogenic claudication Spinal stenosis, lumbar region, without neurogenic claudication Thoracic spine pain Pain in thoracic spine Chronic midline thoracic back pain documented in this encounter [facility] note* Diagnosis Closed fracture of base of fifth metatarsal bone of right foot at metaphyseal-diaphyseal junction, initial encounter documented in this encounter [facility] note* Diagnosis Fall, initial encounter [facility]* Diagnosis Primary osteoarthritis of both shoulders Rotator cuff impingement syndrome, unspecified laterality documented in this encounter [facility] note* Diagnosis Primary osteoarthritis of both shoulders- Primary documented in this encounter [facility] note* Diagnosis Primary osteoarthritis of both shoulders- Primary [facility]* Diagnosis Primary osteoarthritis of both shoulders- Primary documented in this encounter [facility] note* Diagnosis Primary osteoarthritis of both shoulders- Primary [facility] Diagnosis 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 documented in this encounter [facility] for referral (narrative)* Diagnostic Procedure Only (Routine) - Closed Specialty Diagnoses / Procedures Referred By Maryseac t Referred To Contact XR IMAGING Diagnoses SOB (shortness of breath) Rib pain on left side Procedures XR RIBS/CHEST 3V AP RIB/OBLS/CXR LEFT RADEX RIBS UNI W/POSTEROANT CH MINIMUM 3 VIEWS Lizy Capone MD [address] [place] [address] Xr Imaging Referral ID Status Reason Start Date Expiration Date V isits Requested Visits Authorized [id number] Closed Auto-Generate d Referral 07/16/2021 08/15/2022 1 1 [facility] for referral (narrative)* - Authorized Specialty Diagnoses / Procedures Referred By Contac t Referred To Contact Physical Therapy Diagnoses Lumbar spondylosis Thoracic spine pain Myofascial pain Procedures CONSULT TO PHYSICAL THERAPY Avis Marrufo, NANCI.MANUFACTURE SPECIALIST [address] [place] [address] Referral ID Status Reason Start Date Expiration Date V isits Requested Visits Authorized [id number] Authorized 09/19/2021 12/18/2021 99 99 Electronically signed by Avis Marrufo FILLING AND PACKING SUPERVISOR.MANUFACTURE SPECIALIST at 09/19/2021 9:51 AM EDT * Diagnostic Procedure Only (Routine) - Pending Review Specialty Diagnoses / Procedures Referred By Contac t Referred To Contact XR IMAGING Diagnoses Thoracic spine pain Procedures XR THORACIC LIMITED 2V AP/LAT RADEX SPINE THORACIC 2 VIEWS Avis Marrufo, FILLING AND PACKING SUPERVISOR.MANUFACTURE SPECIALIST [address] [place] [address] Xr Imaging Referral ID Status Reason Start Date Expiration Date Visits Requested Visits Authorized [id number] Pending Review Auto-Generat ed Referral 09/19/2021 10/19/2022 1 1 * Diagnostic Procedure Only (Routine) - Pending Review Specialty Diagnoses / Procedures Referred By Contac t Referred To Contact XR IMAGING Diagnoses Lumbar spondylosis Procedures XR LUMBAR MOTION 4V AP/LAT/ FLEX/EXT RADEX SPINE LUMBOSACRAL MINIMUM 4 VIEWS Avis Marrufo, FILLING AND PACKING SUPERVISOR.MANUFACTURE SPECIALIST [address] [place] [address] Xr Imaging Referral ID Status Reason Start Date Expiration Date Visits Requested Visits Authorized [id number] Pending Review Auto-Generat ed Referral 09/19/2021 10/19/2022 1 1 [facility] for referral (narrative)* Diagnostic Procedure Only (Routine) - Closed Specialty Diagnoses / Procedures Referred By Contac t Referred To Contact XR IMAGING Diagnoses Thoracic spine pain Procedures XR THORACIC LIMITED 2V AP/LAT RADEX SPINE THORACIC 2 VIEWS Avis Marrufo FILLING AND PACKING SUPERVISOR.MANUFACTURE SPECIALIST [address] [place] [address] Xr Imaging Referral ID Status Reason Start Date Expiration Date V isits Requested Visits Authorized [id number] Closed Auto-Generate d Referral 09/19/2021 10/19/2022 1 1 * Diagnostic Procedure Only (Routine) - Closed Specialty Diagnoses / Procedures Referred By Contac t Referred To Contact XR IMAGING Diagnoses Lumbar spondylosis Procedures XR LUMBAR MOTION 4V AP/LAT/ FLEX/EXT RADEX SPINE LUMBOSACRAL MINIMUM 4 VIEWS Avis Marrufo, FILLING AND PACKING SUPERVISOR.MANUFACTURE SPECIALIST [address] [place] [address] Xr Imaging Referral ID Status Reason Start Date Expiration Date V isits Requested Visits Authorized [id number] Closed Auto-Generate d Referral 09/19/2021 10/19/2022 1 1 [facility] for referral (narrative)* Diagnostic Procedure Only (Urgent) - Closed Specialty Diagnoses / Procedures Referred By Contac t Referred To Contact US IMAGING Diagnoses Abdominal distension Procedures US ABDOMEN COMPLETE US ABDOMINAL REAL TIME W/IMAGE DOCUMENTATION Miryam Wells APRN.MANUFACTURE SPECIALIST [address] [place] [address] Us Imaging Referral ID Status Reason Start Date Expiration Date V isits Requested Visits Authorized [id number] Closed Auto-Generate d Referral 01/02/2022 02/01/2023 1 1 [facility] for referral (narrative)* Diagnostic Procedure Only (Routine) - Closed Specialty Diagnoses / Procedures Referred By Contac t Referred To Contact XR IMAGING Diagnoses Fall, initial encounter Procedures XR ELBOW SPECIAL VIEWS AP/LAT/OTHER LEFT RADEX ELBOW COMPLETE MINIMUM 3 VIEWS Jae Cagle MD [address] [place] [address] Xr Imaging Referral ID Status Reason Start Date Expiration Date V isits Requested Visits Authorized [id number] Closed Auto-Generate d Referral 05/13/2022 06/12/2023 1 1 * Diagnostic Procedure Only (Routine) - Closed Specialty Diagnoses / Procedures Referred By Contac t Referred To Contact XR IMAGING Diagnoses Fall, initial encounter Procedures XR HIP GENERAL 3V PELV/AP/LAT RIGHT RADEX HIP UNILATERAL WITH PELVIS 2-3 VIEWS Jae Cagle MD [address] [place] [address] Xr Imaging Referral ID Status Reason Start Date Expiration Date V isits Requested Visits Authorized [id number] Closed Auto-Generate d Referral 05/13/2022 06/12/2023 1 1 [facility] for referral (narrative)* Outpatient Procedure (Routine) - Pending Review Specialty Diagnoses / Procedures Referred By Contac t Referred To Contact [facility] Diagnoses Female stress incontinence Urge urinary incontinence Procedures URODYNAMICS WHI COMPLX CYSTOMETRO W/VOID PRESS&URETHRAL PROFILE Jud Gomes APRN.MANUFACTURE SPECIALIST [address] [place] [address] x2 [facility] [address] [place] [address] Referral ID Status Reason Start Date Expiration Date Visits Requested Visits Authorized [id number] Pending Review Auto-Generat ed Referral 06/30/2022 06/30/2023 1 1 [facility] [facility] for referral (narrative)* Diagnostic Procedure Only (Routine) - Closed Specialty Diagnoses / Procedures Referred By Contac t Referred To Contact XR IMAGING Diagnoses Primary osteoarthritis of both shoulders Rotator cuff impingement syndrome, unspecified laterality Procedures XR SHOULDER [id number] AP/TRUE AP RIGHT RADEX SHOULDER COMPLETE MINIMUM 2 VIEWS Roque Jackson MD [address] [place] [address] [place] [address] Referral ID Status Reason Start Date Expiration Date V isits Requested Visits Authorized [id number] Closed Auto-Generate d Referral 01/15/2023 02/14/2024 1 1 * Diagnostic Procedure Only (Routine) - Closed Specialty Diagnoses / Procedures Referred By Contac t Referred To Contact XR IMAGING Diagnoses Primary osteoarthritis of both shoulders Rotator cuff impingement syndrome, unspecified laterality Procedures XR SHOULDER LIMITED 2V AP/TRUE AP LEFT RADEX SHOULDER COMPLETE MINIMUM 2 VIEWS Roque Jackson MD [address] [address] [place] [address] Referral ID Status Reason Start Date Expiration Date V isits Requested Visits Authorized [id number] Closed Auto-Generate d Referral 01/15/2023 02/14/2024 1 1 [facility] for referral (narrative)* Diagnostic Procedure Only (Routine) - Closed Specialty Diagnoses / Procedures Referred By Contac t Referred To Contact XR IMAGING Diagnoses Closed fracture of base of fifth metatarsal bone of right foot at metaphyseal-diaphyseal junction, initial encounter Procedures XR FOOT GENERAL 3V AP/LAT/OBL RIGHT RADEX FOOT COMPLETE MINIMUM 3 VIEWS Roque Jackson MD [address] [place] [address] [place] [address] Referral ID Status Reason Start Date Expiration Date V isits Requested Visits Authorized [id number] Closed Auto-Generate d Referral 07/31/2022 08/30/2023 1 1 [facility] for referral (narrative)* Diagnostic Procedure Only (Routine) - Closed Specialty Diagnoses / Procedures Referred By Contac t Referred To Contact XR IMAGING Diagnoses Fall, initial encounter Procedures XR ELBOW SPECIAL VIEWS AP/LAT/OTHER LEFT RADEX ELBOW COMPLETE MINIMUM 3 VIEWS Jae Cagle MD [address] [place] [address] [place] [address] Referral ID Status Reason Start Date Expiration Date V isits Requested Visits Authorized [id number] Closed Auto-Generate d Referral 05/13/2022 06/12/2023 1 1 * Diagnostic Procedure Only (Routine) - Closed Specialty Diagnoses / Procedures Referred By Kallie t Referred To Contact XR IMAGING Diagnoses Fall, initial encounter Procedures XR HIP GENERAL 3V PELV/AP/LAT RIGHT RADEX HIP UNILATERAL WITH PELVIS 2-3 VIEWS Jae Cagle MD [address] [place] [address] [place] [address] Referral ID Status Reason Start Date Expiration Date V isits Requested Visits Authorized [id number] Closed Auto-Generate d Referral 05/13/2022 06/12/2023 1 1 [facility] for referral (narrative)* Diagnostic Procedure Only (Routine) - Closed Specialty Diagnoses / Procedures Referred By Contac t Referred To Contact XR IMAGING Diagnoses Primary osteoarthritis of both shoulders Rotator cuff impingement syndrome, unspecified laterality Procedures XR SHOULDER [id number] AP/TRUE AP RIGHT RADEX SHOULDER COMPLETE MINIMUM 2 VIEWS Roque Jackson MD [address] [address] [place] [address] Referral ID Status Reason Start Date Expiration Date V isits Requested Visits Authorized [id number] Closed Auto-Generate d Referral 01/15/2023 02/14/2024 1 1 * Diagnostic Procedure Only (Routine) - Closed Specialty Diagnoses / Procedures Referred By Contac t Referred To Contact XR IMAGING Diagnoses Primary osteoarthritis of both shoulders Rotator cuff impingement syndrome, unspecified laterality Procedures XR SHOULDER LIMITED 2V AP/TRUE AP LEFT RADEX SHOULDER COMPLETE MINIMUM 2 VIEWS Roque Jackson MD [address] [address] [place] [address] Referral ID Status Reason Start Date Expiration Date V isits Requested Visits Authorized [id number] Closed Auto-Generate d Referral 01/15/2023 02/14/2024 1 1 [facility] for visit Narrative* Diagnostic Procedure Only (Routine) - Closed Specialty Diagnoses / Procedures Referred By Contac t Referred To Contact XR IMAGING Diagnoses Thoracic spine pain Procedures XR THORACIC LIMITED 2V AP/LAT RADEX SPINE THORACIC 2 VIEWS Avis Marrufo, FILLING AND PACKING SUPERVISOR.MANUFACTURE SPECIALIST [address] [place] [address] Xr Imaging Referral ID Status Reason Start Date Expiration Date V isits Requested Visits Authorized [id number] Closed Auto-Generate d Referral 09/19/2021 10/19/2022 1 1 [facility] for visit Narrative* Diagnostic Procedure Only (Urgent) - Closed Specialty Diagnoses / Procedures Referred By Contac t Referred To Contact US IMAGING Diagnoses Abdominal distension Procedures US ABDOMEN COMPLETE US ABDOMINAL REAL TIME W/IMAGE DOCUMENTATION Miryam Wells, FILLING AND PACKING SUPERVISOR.MANUFACTURE SPECIALIST [address] [place] [address] Us Imaging Referral ID Status Reason Start Date Expiration Date V isits Requested Visits Authorized [id number] Closed Auto-Generate d Referral 01/02/2022 02/01/2023 1 1 [facility] for visit Narrative* Diagnostic Procedure Only (Routine) - Closed Specialty Diagnoses / Procedures Referred By Contac t Referred To Contact XR IMAGING Diagnoses Closed fracture of base of fifth metatarsal bone of right foot at metaphyseal-diaphyseal junction, initial encounter Procedures XR FOOT GENERAL 3V AP/LAT/OBL RIGHT RADEX FOOT COMPLETE MINIMUM 3 VIEWS Roque Jackson MD [address] [address] [place] [address] Referral ID Status Reason Start Date Expiration Date V isits Requested Visits Authorized [id number] Closed Auto-Generate d Referral 07/31/2022 08/30/2023 1 1 [facility] for visit Narrative* Diagnostic Procedure Only (Routine) - Closed Specialty Diagnoses / Procedures Referred By Contac t Referred To Contact XR IMAGING Diagnoses Fall, initial encounter Procedures XR ELBOW SPECIAL VIEWS AP/LAT/OTHER LEFT RADEX ELBOW COMPLETE MINIMUM 3 VIEWS Jae Cagle MD [address] [place] [address] [place] [address] Referral ID Status Reason Start Date Expiration Date V isits Requested Visits Authorized [id number] Closed Auto-Generate d Referral 05/13/2022 06/12/2023 1 1 [facility] for visit Narrative* Diagnostic Procedure Only (Routine) - Closed Specialty Diagnoses / Procedures Referred By Contac t Referred To Contact XR IMAGING Diagnoses Primary osteoarthritis of both shoulders Rotator cuff impingement syndrome, unspecified laterality Procedures XR SHOULDER [id number] AP/TRUE AP RIGHT RADEX SHOULDER COMPLETE MINIMUM 2 VIEWS Roque Jackson MD [address] [address] [place] [address] Referral ID Status Reason Start Date Expiration Date V isits Requested Visits Authorized [id number] Closed Auto-Generate d Referral 01/15/2023 02/14/2024 1 1 [facility] Advance Directives No Advanced Directives Records FoundDocuments on File Type Date Recorded 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 Advance Directive(s) 12/23/2016 7:30 PM Advance Directive(s) 05/22/2006 12:00 AM Advance Directive(s) 05/21/2006 12:00 AM Documents on File Type Date Recorded 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 Advance Directive(s) 12/23/2016 7:30 PM Advance Directive(s) 05/22/2006 12:00 AM Advance Directive(s) 05/21/2006 12:00 AM Documents on File Type Date Recorded 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 Advance Directive(s) 05/22/2006 Advance Directive(s) 05/21/2006 Documents on File Type Date Recorded 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 Advance Directive(s) 05/22/2006 Advance Directive(s) 05/21/2006 Reason for Referral Specialty Diagnoses / Procedures Referred By Contac t Referred To Contact CT IMAGING Diagnoses Left upper quadrant abdominal pain Procedures CT ABD/PEL WO IVCON CT ABD & PELVIS W/O CONTRAST Lizy Capone MD [address] [place] [address] Ct Imaging Referral ID Status Reason Start Date Expiration Date Visits Requested Visits Authorized [id number] Authorized Auto-Generat ed Referral 07/18/2021 08/17/2022 1 1 Referral ID Status Reason Start Date Expiration Date V isits Requested Visits Authorized [id number] Closed Auto-Generate d Referral 07/18/2021 08/17/2022 1 1 Specialty Diagnoses / Procedures Referred By Contac t Referred To Contact Pain Management Diagnoses Rib pain on left side Procedures CONSULT TO PAIN MGT OFFICE/OUTPATIENT [facility] MDM 60-74 MINUTES Lizy Capone MD [address] [place] [address] Referral ID Status Reason Start Date Expiration Date Visits Requested Visits Authorized [id number] Authorized PCP Requested Referral 08/01/2021 08/01/2022 1 1 Specialty Diagnoses / Procedures Referred By Contac t Referred To Contact [facility] Diagnoses Lymphedema Procedures CONSULT TO LYMPHEDEMA THERAPY OFFICE/OUTPATIENT [facility] MDM 60-74 MINUTES Lizy Capone MD [address] [place] [address] [facility] [address] [place] [address] Referral ID Status Reason Start Date Expiration Date Visits Requested Visits Authorized [id number] Authorized Auto-Generat ed Referral 11/13/2021 11/13/2022 99 99 Specialty Diagnoses / Procedures Referred By Contac t Referred To Contact [facility] Diagnoses Lymphedema Procedures CONSULT TO PHYSICAL THERAPY PHYSICAL THERAPY EVALUATION HIGH COMPLEX 45 MINS Lizy Capone MD [address] [place] [address] [facility] [address] [place] [address] Referral ID Status Reason Start Date Expiration Date Visits Requested Visits Authorized [id number] Authorized PCP Requested Referral Auto-Generate d Referral 11/13/2021 11/13/2022 99 99 Specialty Diagnoses / Procedures Referred By Contac t Referred To Contact Nephrology Diagnoses Function kidney decreased Procedures CONSULT TO NEPHROLOGY OFFICE/OUTPATIENT [facility] MDM 60-74 MINUTES Miryam Wells APRN.MANUFACTURE SPECIALIST [address] [place] [address] Referral ID Status Reason Start Date Expiration Date Visits Requested Visits Authorized [id number] Authorized PCP Requested Referral 01/02/2022 01/02/2023 1 1 Specialty Diagnoses / Procedures Referred By Contac t Referred To Contact US IMAGING Diagnoses Abdominal distension Procedures US ABDOMEN COMPLETE US ABDOMINAL REAL TIME W/IMAGE DOCUMENTATION Miryam Wells APRN.MANUFACTURE SPECIALIST [address] [place] [address] Us Imaging Referral ID Status Reason Start Date Expiration Date Visits Requested Visits Authorized [id number] Authorized Auto-Generat ed Referral 01/02/2022 02/01/2023 1 1 Specialty Diagnoses / Procedures Referred By Contac t Referred To Contact Urology Diagnoses Female stress incontinence Procedures CONSULT TO UROLOGY OFFICE/OUTPATIENT [facility] MDM 60-74 MINUTES Miryam Wells APRN.MANUFACTURE SPECIALIST [address] [place] [address] Referral ID Status Reason Start Date Expiration Date Visits Requested Visits Authorized [id number] Authorized PCP Requested Referral 06/26/2022 06/26/2023 1 1 Specialty Diagnoses / Procedures Referred By Contac t Referred To Contact Nephrology Diagnoses Decreased glomerular filtration rate (GFR) Procedures CONSULT TO NEPHROLOGY OFFICE/OUTPATIENT [facility] MDM 60-74 MINUTES Miryam Wells APRN.MANUFACTURE SPECIALIST [address] [place] [address] Referral ID Status Reason Start Date Expiration Date Visits Requested Visits Authorized [id number] Authorized PCP Requested Referral 12/24/2022 12/24/2023 1 1 Specialty Diagnoses / Procedures Referred By Contac t Referred To Contact MR IMAGING Diagnoses Thoracic spine pain Chronic midline thoracic back pain Procedures MRI THORACIC SPINE WO IVCON MRI SPINAL CANAL THORACIC W/O CONTRAST MATRL Avis Marrufo, FILLING AND PACKING SUPERVISOR.MANUFACTURE SPECIALIST [address] [place] [address] Mr Imaging [facility] Referral ID Status Reason Start Date Expiration Date V isits Requested Visits Authorized [id number] Closed Auto-Generate d Referral 04/03/2022 05/03/2023 1 1 Specialty Diagnoses / Procedures Referred By Contac t Referred To Contact MR IMAGING Diagnoses Lumbar spondylosis Spinal stenosis of lumbar region without neurogenic claudication Procedures MRI LUMBAR SPINE WO IVCON MRI SPINAL CANAL LUMBAR W/O CONTRAST MATERIAL Avis Marrufo, FILLING AND PACKING SUPERVISOR.MANUFACTURE SPECIALIST [address] [place] [address] Mr [facility] Referral ID Status Reason Start Date Expiration Date V isits Requested Visits Authorized [id number] Closed Auto-Generate d Referral 04/03/2022 05/03/2023 1 [...] dose, On Thu02/16/23 at 1100 Given by [facility] 02/16/2023 11:51 AM EST 300 mg lidocaine (PF) 10 mg/mL (1 %) 100 mg injection (XYLOCAINE) 100 mg, OTHER, ONCE, 1 dose, On Thu02/16/23 at 1100 Given by [facility] 02/16/2023 11:50 AM EST 100 mg lidocaine (PF) 20 mg/mL (2 %) 200 mg injection (XYLOCAINE) 200 mg, OTHER, ONCE, 1 dose, On Thu02/16/23 at 1100 Given by [facility] 02/16/2023 11:51 AM EST 200 mg methylPREDNISolone acetate 40 mg injection (DEPO-Medrol) 40 mg, OTHER, ONCE, 1 dose, On Thu02/16/23 at 1100 Given by [facility] 02/16/2023 11:52 AM EST 80 mg Summary [...] or prosecute any alcohol or drug abuse patient.[facility] InstituteIn the event this information is protected by the Federal Confidentiality of Alcohol and Drug Abuse Patient Records regulations: The Federal rules restrict any use of the information to criminally investigate or prosecute any alcohol or drug abuse patient.[facility] InstituteIn the event this information is protected by the Federal Confidentiality of Alcohol and Drug Abuse Patient Records regulations: The Federal rules restrict any use of the information to criminally investigate or prosecute any alcohol or drug abuse patient.[facility] InstituteIn the event this information is protected by the Federal Confidentiality of Alcohol and Drug Abuse Patient Records regulations: The Federal rules restrict any use of the information to criminally investigate or prosecute any alcohol or drug abuse patient.[facility] InstituteIn the event this information is protected by the Federal Confidentiality of Alcohol and Drug Abuse Patient Records regulations: The Federal rules restrict any use of the information to criminally investigate or prosecute any alcohol or drug abuse patient.[facility] InstituteIn the event this information is protected by the Federal Confidentiality of Alcohol and Drug Abuse Patient Records regulations: The Federal rules restrict any use of the information to criminally investigate or prosecute any alcohol or drug abuse patient.[facility] InstituteIn the event this information is protected by the Federal Confidentiality of Alcohol and Drug Abuse Patient Records regulations: The Federal rules restrict any use of the information to criminally investigate or prosecute any alcohol or drug abuse patient.[facility] InstituteIn the event this information is protected by the Federal Confidentiality of Alcohol and Drug Abuse Patient Records regulations: The Federal rules restrict any use of the information to criminally investigate or prosecute any alcohol or drug abuse patient.[facility] InstituteIn the event this information is protected by the Federal Confidentiality of Alcohol and Drug Abuse Patient Records regulations: The Federal rules restrict any use of the information to criminally investigate or prosecute any alcohol or drug abuse patient.[facility] InstituteIn the event this information is protected by the Federal Confidentiality of Alcohol and Drug Abuse Patient Records regulations: The Federal rules restrict any use of the information to criminally investigate or prosecute any alcohol or drug abuse patient.[facility] InstituteIn the event this information is protected by the Federal Confidentiality of Alcohol and Drug Abuse Patient Records regulations: The Federal rules restrict any use of the information to criminally investigate or prosecute any alcohol or drug abuse patient.[facility] InstituteIn the event this information is protected by the Federal Confidentiality of Alcohol and Drug Abuse Patient Records regulations: The Federal rules restrict any use of the information to criminally investigate or prosecute any alcohol or drug abuse patient.[facility] InstituteIn the event this information is protected by the Federal Confidentiality of Alcohol and Drug Abuse Patient Records regulations: The Federal rules restrict any use of the information to criminally investigate or prosecute any alcohol or drug abuse patient.[facility] InstituteIn the event this information is protected by the Federal Confidentiality of Alcohol and Drug Abuse Patient Records regulations: The Federal rules restrict any use of the information to criminally investigate or prosecute any alcohol or drug abuse patient.[facility] InstituteIn the event this information is protected by the Federal Confidentiality of Alcohol and Drug Abuse Patient Records regulations: The Federal rules restrict any use of the information to criminally investigate or prosecute any alcohol or drug abuse patient.[facility] InstituteIn the event this information is protected by the Federal Confidentiality of Alcohol and Drug Abuse Patient Records regulations: The Federal rules restrict any use of the information to criminally investigate or prosecute any alcohol or drug abuse patient.[facility] InstituteIn the event this information is protected by the Federal Confidentiality of Alcohol and Drug Abuse Patient Records regulations: The Federal rules restrict any use of the information to criminally investigate or prosecute any alcohol or drug abuse patient.[facility] InstituteIn the event this information is protected by the Federal Confidentiality of Alcohol and Drug Abuse Patient Records regulations: The Federal rules restrict any use of the information to criminally investigate or prosecute any alcohol or drug abuse patient.[facility] InstituteIn the event this information is protected by the Federal Confidentiality of Alcohol and Drug Abuse Patient Records regulations: The Federal rules restrict any use of the information to criminally investigate or prosecute any alcohol or drug abuse patient.[facility] InstituteIn the event this information is protected by the Federal Confidentiality of Alcohol and Drug Abuse Patient Records regulations: The Federal rules restrict any use of the information to criminally investigate or prosecute any alcohol or drug abuse patient.[facility] InstituteIn the event this information is protected by the Federal Confidentiality of Alcohol and Drug Abuse Patient Records regulations: The Federal rules restrict any use of the information to criminally investigate or prosecute any alcohol or drug abuse patient.[facility] InstituteIn the event this information is protected by the Federal Confidentiality of Alcohol and Drug Abuse Patient Records regulations: The Federal rules restrict any use of the information to criminally investigate or prosecute any alcohol or drug abuse patient.[facility] InstituteIn the event this information is protected by the Federal Confidentiality of Alcohol and Drug Abuse Patient Records regulations: The Federal rules restrict any use of the information to criminally investigate or prosecute any alcohol or drug abuse patient.[facility] InstituteIn the event this information is protected by the Federal Confidentiality of Alcohol and Drug Abuse Patient Records regulations: The Federal rules restrict any use of the information to criminally investigate or prosecute any alcohol or drug abuse patient.[facility] InstituteIn the event this information is protected by the Federal Confidentiality of Alcohol and Drug Abuse Patient Records regulations: The Federal rules restrict any use of the information to criminally investigate or prosecute any alcohol or drug abuse patient.[facility] InstituteIn the event this information is protected by the Federal Confidentiality of Alcohol and Drug Abuse Patient Records regulations: The Federal rules restrict any use of the information to criminally investigate or prosecute any alcohol or drug abuse patient.[facility] InstituteIn the event this information is protected by the Federal Confidentiality of Alcohol and Drug Abuse Patient Records regulations: The Federal rules restrict any use of the information to criminally investigate or prosecute any alcohol or drug abuse patient.[facility] InstituteIn the event this information is protected by the Federal Confidentiality of Alcohol and Drug Abuse Patient Records regulations: The Federal rules restrict any use of the information to criminally investigate or prosecute any alcohol or drug abuse patient.[facility] InstituteIn the event this information is protected by the Federal Confidentiality of Alcohol and Drug Abuse Patient Records regulations: The Federal rules restrict any use of the information to criminally investigate or prosecute any alcohol or drug abuse patient.[facility] InstituteIn the event this information is protected by the Federal Confidentiality of Alcohol and Drug Abuse Patient Records regulations: The Federal rules restrict any use of the information to criminally investigate or prosecute any alcohol or drug abuse patient.[facility] InstituteIn the event this information is protected by the Federal Confidentiality of Alcohol and Drug Abuse Patient Records regulations: The Federal rules restrict any use of the information to criminally investigate or prosecute any alcohol or drug abuse patient.[facility] InstituteIn the event this information is protected by the Federal Confidentiality of Alcohol and Drug Abuse Patient Records regulations: The Federal rules restrict any use of the information to criminally investigate or prosecute any alcohol or drug abuse patient.[facility] InstituteIn the event this information is protected by the Federal Confidentiality of Alcohol and Drug Abuse Patient Records regulations: The Federal rules restrict any use of the information to criminally investigate or prosecute any alcohol or drug abuse patient.[facility] InstituteIn the event this information is protected by the Federal Confidentiality of Alcohol and Drug Abuse Patient Records regulations: The Federal rules restrict any use of the information to criminally investigate or prosecute any alcohol or drug abuse patient.[facility] InstituteIn the event this information is protected by the Federal Confidentiality of Alcohol and Drug Abuse Patient Records regulations: The Federal rules restrict any use of the information to criminally investigate or prosecute any alcohol or drug abuse patient.[facility] InstituteIn the event this information is protected by the Federal Confidentiality of Alcohol and Drug Abuse Patient Records regulations: The Federal rules restrict any use of the information to criminally investigate or prosecute any alcohol or drug abuse patient.[facility] InstituteIn the event this information is protected by the Federal Confidentiality of Alcohol and Drug Abuse Patient Records regulations: The Federal rules restrict any use of the information to criminally investigate or prosecute any alcohol or drug abuse patient.[facility] InstituteIn the event this information is protected by the Federal Confidentiality of Alcohol and Drug Abuse Patient Records regulations: The Federal rules restrict any use of the information to criminally investigate or prosecute any alcohol or drug abuse patient.[facility] InstituteIn the event this information is protected by the Federal Confidentiality of Alcohol and Drug Abuse Patient Records regulations: The Federal rules restrict any use of the information to criminally investigate or prosecute any alcohol or drug abuse patient.[facility] InstituteIn the event this information is protected by the Federal Confidentiality of Alcohol and Drug Abuse Patient Records regulations: The Federal rules restrict any use of the information to criminally investigate or prosecute any alcohol or drug abuse patient.[facility] InstituteIn the event this information is protected by the Federal Confidentiality of Alcohol and Drug Abuse Patient Records regulations: The Federal rules restrict any use of the information to criminally investigate or prosecute any alcohol or drug abuse patient.[facility] InstituteIn the event this information is protected by the Federal Confidentiality of Alcohol and Drug Abuse Patient Records regulations: The Federal rules restrict any use of the information to criminally investigate or prosecute any alcohol or drug abuse patient.[facility] InstituteIn the event this information is protected by the Federal Confidentiality of Alcohol and Drug Abuse Patient Records regulations: The Federal rules restrict any use of the information to criminally investigate or prosecute any alcohol or drug abuse patient.[facility] InstituteIn the event this information is protected by the Federal Confidentiality of Alcohol and Drug Abuse Patient Records regulations: The Federal rules restrict any use of the information to criminally investigate or prosecute any alcohol or drug abuse patient.[facility] InstituteIn the event this information is protected by the Federal Confidentiality of Alcohol and Drug Abuse Patient Records regulations: The Federal rules restrict any use of the information to criminally investigate or prosecute any alcohol or drug abuse patient.[facility] InstituteIn the event this information is protected by the Federal Confidentiality of Alcohol and Drug Abuse Patient Records regulations: The Federal rules restrict any use of the information to criminally investigate or prosecute any alcohol or drug abuse patient.[facility] InstituteIn the event this information is protected by the Federal Confidentiality of Alcohol and Drug Abuse Patient Records regulations: The Federal rules restrict any use of the information to criminally investigate or prosecute any alcohol or drug abuse patient.[facility] InstituteIn the event this information is protected by the Federal Confidentiality of Alcohol and Drug Abuse Patient Records regulations: The Federal rules restrict any use of the information to criminally investigate or prosecute any alcohol or drug abuse patient.[facility] InstituteIn the event this information is protected by the Federal Confidentiality of Alcohol and Drug Abuse Patient Records regulations: The Federal rules restrict any use of the information to criminally investigate or prosecute any alcohol or drug abuse patient.[facility] InstituteIn the event this information is protected by the Federal Confidentiality of Alcohol and Drug Abuse Patient Records regulations: The Federal rules restrict any use of the information to criminally investigate or prosecute any alcohol or drug abuse patient.[facility] InstituteIn the event this information is protected by the Federal Confidentiality of Alcohol and Drug Abuse Patient Records regulations: The Federal rules restrict any use of the information to criminally investigate or prosecute any alcohol or drug abuse patient.[facility] InstituteIn the event this information is protected by the Federal Confidentiality of Alcohol and Drug Abuse Patient Records regulations: The Federal rules restrict any use of the information to criminally investigate or prosecute any alcohol or drug abuse patient.[facility] InstituteIn the event this information is protected by the Federal Confidentiality of Alcohol and Drug Abuse Patient Records regulations: The Federal rules restrict any use of the information to criminally investigate or prosecute any alcohol or drug abuse patient.[facility] InstituteIn the event this information is protected by the Federal Confidentiality of Alcohol and Drug Abuse Patient Records regulations: The Federal rules restrict any use of the information to criminally investigate or prosecute any alcohol or drug abuse patient.[facility] InstituteIn the event this information is protected by the Federal Confidentiality of Alcohol and Drug Abuse Patient Records regulations: The Federal rules restrict any use of the information to criminally investigate or prosecute any alcohol or drug abuse patient.[facility] InstituteIn the event this information is protected by the Federal Confidentiality of Alcohol and Drug Abuse Patient Records regulations: The Federal rules restrict any use of the information to criminally investigate or prosecute any alcohol or drug abuse patient.[facility] InstituteIn the event this information is protected by the Federal Confidentiality of Alcohol and Drug Abuse Patient Records regulations: The Federal rules restrict any use of the information to criminally investigate or prosecute any alcohol or drug abuse patient.[facility] InstituteIn the event this information is protected by the Federal Confidentiality of Alcohol and Drug Abuse Patient Records regulations: The Federal rules restrict any use of the information to criminally investigate or prosecute any alcohol or drug abuse patient.[facility] InstituteIn the event this information is protected by the Federal Confidentiality of Alcohol and Drug Abuse Patient Records regulations: The Federal rules restrict any use of the information to criminally investigate or prosecute any alcohol or drug abuse patient.[facility] InstituteIn the event this information is protected by the Federal Confidentiality of Alcohol and Drug Abuse Patient Records regulations: The Federal rules restrict any use of the information to criminally investigate or prosecute any alcohol or drug abuse patient.[facility] InstituteIn the event this information is protected by the Federal Confidentiality of Alcohol and Drug Abuse Patient Records regulations: The Federal rules restrict any use of the information to criminally investigate or prosecute any alcohol or drug abuse patient.[facility] InstituteIn the event this information is protected by the Federal Confidentiality of Alcohol and Drug Abuse Patient Records regulations: The Federal rules restrict any use of the information to criminally investigate or prosecute any alcohol or drug abuse patient.[facility] InstituteIn the event this information is protected by the Federal Confidentiality of Alcohol and Drug Abuse Patient Records regulations: The Federal rules restrict any use of the information to criminally investigate or prosecute any alcohol or drug abuse patient.[facility] InstituteIn the event this information is protected by the Federal Confidentiality of Alcohol and Drug Abuse Patient Records regulations: The Federal rules restrict any use of the information to criminally investigate or prosecute any alcohol or drug abuse patient.[facility] InstituteIn the event this information is protected by the Federal Confidentiality of Alcohol and Drug Abuse Patient Records regulations: The Federal rules restrict any use of the information to criminally investigate or prosecute any alcohol or drug abuse patient.[facility] InstituteIn the event this information is protected by the Federal Confidentiality of Alcohol and Drug Abuse Patient Records regulations: The Federal rules restrict any use of the information to criminally investigate or prosecute any alcohol or drug abuse patient.[facility] InstituteIn the event this information is protected by the Federal Confidentiality of Alcohol and Drug Abuse Patient Records regulations: The Federal rules restrict any use of the information to criminally investigate or prosecute any alcohol or drug abuse patient.[facility] InstituteIn the event this information is protected by the Federal Confidentiality of Alcohol and Drug Abuse Patient Records regulations: The Federal rules restrict any use of the information to criminally investigate or prosecute any alcohol or drug abuse patient.[facility] InstituteIn the event this information is protected by the Federal Confidentiality of Alcohol and Drug Abuse Patient Records regulations: The Federal rules restrict any use of the information to criminally investigate or prosecute any alcohol or drug abuse patient.[facility] InstituteIn the event this information is protected by the Federal Confidentiality of Alcohol and Drug Abuse Patient Records regulations: The Federal rules restrict any use of the information to criminally investigate or prosecute any alcohol or drug abuse patient.[facility] InstituteIn the event this information is protected by the Federal Confidentiality of Alcohol and Drug Abuse Patient Records regulations: The Federal rules restrict any use of the information to criminally investigate or prosecute any alcohol or drug abuse patient.[facility] InstituteIn the event this information is protected by the Federal Confidentiality of Alcohol and Drug Abuse Patient Records regulations: The Federal rules restrict any use of the information to criminally investigate or prosecute any alcohol or drug abuse patient.[facility] InstituteIn the event this information is protected by the Federal Confidentiality of Alcohol and Drug Abuse Patient Records regulations: The Federal rules restrict any use of the information to criminally investigate or prosecute any alcohol or drug abuse patient.[facility] InstituteIn the event this information is protected by the Federal Confidentiality of Alcohol and Drug Abuse Patient Records regulations: The Federal rules restrict any use of the information to criminally investigate or prosecute any alcohol or drug abuse patient.[facility] InstituteIn the event this information is protected by the Federal Confidentiality of Alcohol and Drug Abuse Patient Records regulations: The Federal rules restrict any use of the information to criminally investigate or prosecute any alcohol or drug abuse patient.[facility] InstituteIn the event this information is protected by the Federal Confidentiality of Alcohol and Drug Abuse Patient Records regulations: The Federal rules restrict any use of the information to criminally investigate or prosecute any alcohol or drug abuse patient.[facility] InstituteIn the event this information is protected by the Federal Confidentiality of Alcohol and Drug Abuse Patient Records regulations: The Federal rules restrict any use of the information to criminally investigate or prosecute any alcohol or drug abuse patient.[facility] InstituteIn the event this information is protected by the Federal Confidentiality of Alcohol and Drug Abuse Patient Records regulations: The Federal rules restrict any use of the information to criminally investigate or prosecute any alcohol or drug abuse patient.[facility] Reason for Visit (unrecogniz ed section and content) Specialty Diagnoses / Procedures Referred By Kallie alejandra Referred To Contact Pain Management / PAIN MANAGEMENT Diagnoses Primary osteoarthritis, right shoulder Primary osteoarthritis, left shoulder Suprascapular Nerve Block with steroid infiltration under ultrasound guidance LEFT-SIDED, 81mg apsrin Procedures INJECTION AA&/STRD SUPRASCAPULAR NERVE PROCEDURE 20 Roque Jackson MD [address] [address] Roque Jackson MD [address] [address] Referral ID Status Reason Start Date Expiration Date Visits Re quested Visits Authorized [id number] Closed 04/06/2023 04/05/2024 1 1 Reason Comments Physical Therapy Specialty Diagnoses / Procedures Referred By Contac t Referred To Contact Physical Therapy / PHYSICAL THERAPY Diagnoses Lumbar spondylosis Thoracic spine pain Myofascial pain Procedures CONSULT TO PHYSICAL THERAPY Avis Marrufo, FILLING AND PACKING SUPERVISOR.MANUFACTURE SPECIALIST [address] [place] [address] Pt [facility] [address] [place] [address] Referral ID Status Reason Start Date Expiration Date V isits Requested Visits Authorized [id number] Authorized 04/06/2021 04/05/2022 99 99 Reason Comments PT Eval Reason Comments PT Discharge Reason Comments Recheck Reason Comments Results Reason Comments Radiology CT Specialty Diagnoses / Procedures Referred By Contac t Referred To Contact CT IMAGING Diagnoses Left upper quadrant abdominal pain Procedures CT ABD/PEL WO IVCON CT ABD & PELVIS W/O CONTRAST Lizy Capone MD [address] [place] [address] Ct Imaging Referral ID Status Reason Start Date Expiration Date V isits Requested Visits Authorized [id number] Closed Auto-Generate d Referral 07/18/2021 08/17/2022 1 [...] ADDITIONAL VERTEBRA [address] [place] [address] Referral ID Status Reason Start Date Expiration Date Visits Re quested Visits Authorized [id number] 1 1 Reason Comments Follow Up Reason Comments Acute Visit bilat leg swelling Reason Comments Faxed Referral Referral ID Status Reason Start Date Expiration Date Visits Re quested Visits Authorized [id number] 1 1 Reason Comments Results Labs Reason [...] NEW HIGH MDM 60-74 MINUTES Miryam Wells, FILLING AND PACKING SUPERVISOR.MANUFACTURE SPECIALIST [address] [place] [address] Referral ID Status Reason Start Date Expiration Date V isits Requested Visits Authorized [id number] Closed PCP Requested Referral 04/21/2022 04/21/2023 1 [...] CANAL LUMBAR W/O CONTRAST MATERIAL Avis Marrufo, FILLING AND PACKING SUPERVISOR.MANUFACTURE SPECIALIST [address] [place] [address] [place] [address] Referral ID Status Reason Start Date Expiration Date V isits Requested Visits Authorized [id number] Closed Auto-Generate d Referral 04/03/2022 05/03/2023 1 [...] PROCEDURE 20 Roque Jackson MD [address] [address] Roque Jackson MD [address] [address] Referral ID Status Reason Start Date Expiration Date Visits Re quested Visits Authorized [id number] Closed 02/16/2023 05/17/2023 1 1 Reason Comments Follow Up Bilateral GHJ USI Reason Comments Follow-up Shoulder Pain Follow Up Left suprascapular n erve block Care Teams (unrecognized sec tion and content) Colored Liquid Plastic Applier Relationship Specialty Start Date End Date Lizy Capone MD [address] [place] [address] PCP - General 11/15/08 Colored Liquid Plastic Applier Relationship Specialty Start Date End Date Lizy Capone MD [address] [place] [address] PCP - General 11/15/08 Colored Liquid Plastic Applier Relationship Specialty Start Date End Date Lizy Cpaone MD [address] [place] [address] PCP - General 11/15/08 Colored Liquid Plastic Applier Relationship Specialty Start Date End Date Lizy Capone MD [address] [place] [address] PCP - General 11/15/08 Colored Liquid Plastic Applier Relationship Specialty Start Date End Date Lizy Capone MD [address] [facility] [place] [address] PCP - General 11/15/08 Colored Liquid Plastic Applier Relationship Specialty Start Date End Date Lizy Capone MD [address] [facility] [place] [address] PCP - General 11/15/08 Colored Liquid Plastic Applier Relationship Specialty Start Date End Date Lizy Capone MD [address] [facility] [place] [address] PCP - General 11/15/08 Colored Liquid Plastic Applier Relationship Specialty Start Date End Date Lizy Capone MD [address] [place] [address], [place] [address] PCP - General 11/15/08 Colored Liquid Plastic Applier Relationship Specialty Start Date End Date Lizy Capone MD [address] [facility] [place] [address] PCP - General 11/15/08 Colored Liquid Plastic Applier Relationship Specialty Start Date End Date Lizy Capone MD [address] [facility] [place] [address] PCP - General 11/15/08 Colored Liquid Plastic Applier Relationship Specialty Start Date End Date Lizy Capone MD [address] [facility] [place] [address] PCP - General 11/15/08 Colored Liquid Plastic Applier Relationship Specialty Start Date End Date Lizy Capone MD [address] [facility] [place] [address] PCP - General 11/15/08 Colored Liquid Plastic Applier Relationship Specialty Start Date End Date Lizy Capone MD [facility] [place] [address] PCP - General 11/15/08 Colored Liquid Plastic Applier Relationship Specialty Start Date End Date Lizy Capone MD [address] [facility] [place] [address] PCP - General 11/15/08 Colored Liquid Plastic Applier Relationship Specialty Start Date End Date Lizy Capone MD [address] [facility] [place] [address] PCP - General 11/15/08 Colored Liquid Plastic Applier Relationship Specialty Start Date End Date Lizy Capone MD [address] [facility] [place] [address] PCP - General 11/15/08 Colored Liquid Plastic Applier Relationship Specialty Start Date End Date Lizy Capone MD [address] [facility] [place] [address] PCP - General 11/15/08 Colored Liquid Plastic Applier Relationship Specialty Start Date End Date Lizy Capone MD [address] [facility] [place] [address] PCP - General 11/15/08 Colored Liquid Plastic Applier Relationship Specialty Start Date End Date Lizy Capone MD [address] [facility] [place] [address] PCP - General 11/15/08 Colored Liquid Plastic Applier Relationship Specialty Start Date End Date Lizy Capone MD [address] [facility] [place] [address] PCP - General 11/15/08 Colored Liquid Plastic Applier Relationship Specialty Start Date End Date Lizy Capone MD [address] [facility] [place] [address] PCP - General 11/15/08 Colored Liquid Plastic Applier Relationship Specialty Start Date End Date Lizy Capone MD [address] [facility] [place] [address] PCP - General 11/15/08 Colored Liquid Plastic Applier Relationship Specialty Start Date End Date Lizy Capone MD [address] [facility] [place] [address] PCP - General 11/15/08 Colored Liquid Plastic Applier Relationship Specialty Start Date End Date Lizy Capone MD [address] [facility] [place] [address] PCP - General 11/15/08 Colored Liquid Plastic Applier Relationship Specialty Start Date End Date Lizy Capone MD [address] [facility] [place] [address] PCP - General 11/15/08 Colored Liquid Plastic Applier Relationship Specialty Start Date End Date Lizy Capone MD [address] [facility] [place] [address] PCP - General 11/15/08 Colored Liquid Plastic Applier Relationship Specialty Start Date End Date Lizy Capone MD [address] [facility] [place] [address] PCP - General 11/15/08 Colored Liquid Plastic Applier Relationship Specialty Start Date End Date Lizy Capone MD [address] [facility] [place] [address] PCP - General 11/15/08 Colored Liquid Plastic Applier Relationship Specialty Start Date End Date Lizy Capone MD [address] [facility] [place] [address] PCP - General 11/15/08 Colored Liquid Plastic Applier Relationship Specialty Start Date End Date Lizy Capone MD [address] [facility] [place] [address] PCP - General 11/15/08 Colored Liquid Plastic Applier Relationship Specialty Start Date End Date Lizy Capone MD [address] [facility] [place] [address] PCP - General 11/15/08 Colored Liquid Plastic Applier Relationship Specialty Start Date End Date Lizy Capone MD [address] [place] [address] PCP - General 11/15/08 Colored Liquid Plastic Applier Relationship Specialty Start Date End Date Lizy Capone MD [address] [place] [address] PCP - General 11/15/08 Colored Liquid Plastic Applier Relationship Specialty Start Date End Date Lizy Capone MD [address] [place] [address] PCP - General 11/15/08 Colored Liquid Plastic Applier Relationship Specialty Start Date End Date Lizy Capone MD [address] [place] [address] PCP - General 11/15/08 Colored Liquid Plastic Applier Relationship Specialty Start Date End Date Lizy Capone MD [address] [place] [address] PCP - General 11/15/08 Colored Liquid Plastic Applier Relationship Specialty Start Date End Date Lizy Capone MD [address] [place] [address] PCP - General 11/15/08 Colored Liquid Plastic Applier Relationship Specialty Start Date End Date Lizy Capone MD [address] [place] [address] PCP - General 11/15/08 Colored Liquid Plastic Applier Relationship Specialty Start Date End Date Lizy Capone MD [address] [place] [address] PCP - General 11/15/08 Colored Liquid Plastic Applier Relationship Specialty Start Date End Date Lizy Capone MD [address] [place], [place] [phone] PCP - General 11/15/08 Colored Liquid Plastic Applier Relationship Specialty Start Date End Date Lizy Capone MD [address] [place] [address] PCP - General 11/15/08 Colored Liquid Plastic Applier Relationship Specialty Start Date End Date Lizy Capone MD [address] [place] [address] PCP - General 11/15/08 Colored Liquid Plastic Applier Relationship Specialty Start Date End Date Lizy Capone MD [address] [place] [address] PCP - General 11/15/08 Colored Liquid Plastic Applier Relationship Specialty Start Date End Date Lizy Capone MD [address] [place] [address] PCP - General 11/15/08 Colored Liquid Plastic Applier Relationship Specialty Start Date End Date Lizy Capone MD [address] [place] [address] PCP - General 11/15/08 Colored Liquid Plastic Applier Relationship Specialty Start Date End Date Lizy Capone MD [address] [place] [address] PCP - General 11/15/08 Colored Liquid Plastic Applier Relationship Specialty Start Date End Date Lizy Capone MD [address] [place] [address] PCP - General 11/15/08 PRN Active and [...] DATE CREATED AUTHOR AUTHOR'S ORGANIZ ATION 06/07/2023 [facility] FOR RECORDS PERTAINING TO PATIENTS WHO [...] BE BASED ON THE PRIMARY CLINICAL RECORDS. [email or web address] provides no warranty or guarantee of the accuracy or completeness of information in this document.
[2023-06-08 01:28] VITALS: BMI 40.3
[2023-06-08 01:41] VITALS: BP 136/71; PULSE 80; RESP 18; TEMP 35.7; O2SAT 98
[2023-06-08] MEDS: 0.9% Normal Saline (1000mL) 1,000 ML 125 ML IV ×4 (02:10→22:20)
[2023-06-08] MEDS: Morphine 2 MG/ML Syringe IV (02:10)
[2023-06-08] MEDS: Lactulose 20 GM/30 ML UDC 30 GM PO (02:16)
[2023-06-08] MEDS: Zolpidem Tartrate 5 MG Tablet PO ×2 (02:24→22:18)
[2023-06-08] MEDS: Gabapentin 300 MG Capsule PO ×3 (05:02→20:08)
[2023-06-08] MEDS: Levothyroxine 125 MCG Tablet PO (05:02)
[2023-06-08 05:06] VITALS: BMI 40.5
[2023-06-08 06:23] LABS: Absolute Neutrophil Count 5.7 X10^3/uL (2.0-7.7); Basophil# 0.05 X10^3/uL; Basophil% 0.6 % (0-1); Eosinophil# 0.31 X10^3/uL; Eosinophils% 3.8 % (0-5); Hematocrit 36.5 % (37-47); Hemoglobin 11.1 g/dL (12.0-15.0); Lymphocyte % 18.6 % (19-41); Mean Corp Hgb Conc 30.4 g/dL (32-36); Mean Corpuscular Hgb 32.7 pg (27.0-32.0); Mean Corpuscular Volume 107.7 fL (81-99); Mean Platelet Vol. 12.3 fl (6.2-12.0); Monocyte# 0.54 X10^3/uL; Monocyte% 6.7 % (0-10); NRBC Flagged by Analyzer 0 % (0-5); Neutrophil # 5.65 X10^3/uL (2.7-7.7); Neutrophil % 69.9 % (47-70); Platelet Count 219 K/mm3 (150-450); RBC Distribution Width CV 13.6 % (11.6-14.6); RBC Distribution Width SD 54.2 fl (35.1-43.9); Red Blood Count 3.39 M/mm3 (4.2-5.4); White Blood Count 8.1 K/mm3 (4.4-11.0)
[2023-06-08 07:00] LABS: ALB/GLOB Ratio 0.9 RATIO (0.9-2.4); AST(SGOT) 27 U/L (15-37); Alanine Aminotransfer ALT/SGPT 26 U/L (13-56); Albumin, Serum 3.1 g/dL (3.2-5.0); Alkaline Phosphatase 82 U/L (45-117); Anion Gap 8 (5-15); BUN 75 mg/dL (7-18); BUN/Creat Ratio 36.8 RATIO (10-20); Calcium,Total 8.7 mg/dL (8.5-10.1); Chloride 116 mmol/L (98-107); Creatinine, Serum 2.04 mg/dL (0.55-1.02); EST Glomerular Filtration Rate 25 mL/min (>60); Est Glom Filt Rate - Afr Amer 30 mL/min (>60); Estimated Creatinine Clearance 24.31 ml/min; Globulin 3.4 g/dL (2.2-4.2); Glucose 115 mg/dL (74-106); Magnesium 2.8 mg/dL (1.6-2.6); Phosphorus 5.7 mg/dL (2.5-4.9); Potassium 4.1 mmol/L (3.5-5.1); Protein, Total 6.5 g/dL (6.4-8.2); Sodium Level 140 mmol/L (136-145); Thyroid Stim Hormone (TSH) 5.75 uIU/mL (0.358-3.74)
[2023-06-08 08:22] VITALS: BP 127/64; PULSE 80; RESP 16; TEMP 36.7; O2SAT 98
[2023-06-08] MEDS: Ascorbic Acid 500 MG Tablet PO (08:27)
[2023-06-08] MEDS: Aspirin E.C. 81 MG Tablet PO (08:27)
[2023-06-08] MEDS: Multivitamins,Therapeutic Tablet 1 TABLET PO (08:27)
[2023-06-08] MEDS: Cholecalciferol (VIT D3) 25 MCG TABLET (1,000 UNITS) 50 MCG PO (08:28)
[2023-06-08] MEDS: Hydrocortisone 2.5% Crm 1 APPLIC RC ×2 (08:28→20:09)
[2023-06-08] MEDS: Magnesium Chloride 64 MG Delay Rel.Tablet PO (08:28)
[2023-06-08] MEDS: Acetaminophen 325 MG Tablet 650 MG PO (08:28)
[2023-06-08] MEDS: Pantoprazole Sodium 20 MG Tablet PO (08:28)
[2023-06-08] MEDS: Vitamin B Comp W-C Capsule 1 CAP PO (08:28)
[2023-06-08] MEDS: Vitamin E 400 UNITS Capsule PO (08:28)
[2023-06-08] MEDS: Calcium Acetate 667 MG Capsule PO ×3 (08:29→16:40)
[2023-06-08] MEDS: Calcium Carb/Vitamin D 1 TABLET Tablet PO ×2 (08:29→16:40)
[2023-06-08] MEDS: Vibegron 75 MG TABLET PO (08:29)
[2023-06-08] MEDS: Zinc Sulfate 50 mg zinc (220 mg) ORAL capsule PO (08:29)
[2023-06-08] MEDS: Pyridoxine HCl 100 MG Tablet PO (08:30)
[2023-06-08] MEDS: Polyethylene Glycol 3350 17 GM PACKET PO (08:30)
--- NOTE | 2023-06-08 08:38 | PN.HOSP_ITS ---
Reason for Visit Reason for Visit: Diagnoses Fecal impaction (06/08/23) Chronic idiopathic constipation (06/08/23) Acute kidney failure, unspecified (06/08/23) Chronic kidney disease, unspecified (06/08/23) Dyspnea, unspecified (06/08/23) Subjective Subjective Patient is an 82-year-old lady admitted with abdominal pain CT of the abdomen and pelvis reviewed constipation with fecal impaction and moderate dilatation of the entire colon. Admitted to regular nursing floor for further management Objective Data Objective Data Vital Signs: Vital Signs Temp Pulse Resp BP Pulse Ox O2 Del Method 98.1 F 80 16 127/64 H 98 Room Air 06/08/23 08:22 06/08/23 08:22 06/08/23 08:22 06/08/23 08:22 06/08/23 08:22 06/08/23 08:23 Oxygen Delivery Method Room Air Weight: 99.9 kg Body Mass Index (BMI) 40.5 Intake & Output: Intake and Output for Last 24 Hours 06/06/23 06/07/23 06/08/23 23:59 23:59 23:59 Intake Total 1000 / 1000 Balance 1000 / 1000 Lab / Micro Data 06/08/23 05:55 06/08/23 05:55 Labs: Laboratory Results - last 24 hr 06/07/23 21:25: WBC 8.1, RBC 3.83 L, Hgb 12.6, Hct 41.1, MCV 107.3 H, MCH 32.9 H , MCHC 30.7 L, RDW Std Deviation 54.8 H, RDW Coeff of Parris 13.7, Plt Count 248, MPV 12.5 H, Immature Gran % (Auto) 0.200, Neut % (Auto) 74.9 H, Lymph % (Auto) 14.2 L, [place] % (Auto) 5.8, Eos % (Auto) 3.9, Baso % (Auto) 1.0, Absolute Neuts (auto) 6.0, Absolute Lymphs (auto) 1.14, Nucleated RBC % 0, Sodium 139, Potassium 4.6, Chloride 112 H, Carbon Dioxide 20.0 L, Anion Gap 7, BUN 87 H, Creatinine 2.42 H, Estim Creat Clear Calc 19.95, Est GFR (MDRD) Af Amer 25 L, Est GFR (MDRD) Non-Af 20 L, BUN/Creatinine Ratio 36.0 H, Glucose 102, Calcium 9.3, Total Bilirubin 0.40, AST 23, ALT 23, Alkaline Phosphatase 82, Total Prot ein 7.6, Albumin 3.7, Globulin 3.9, Albumin/Globulin Ratio 0.9 06/08/23 05:55: WBC 8.1, RBC 3.39 L, Hgb 11.1 L, Hct 36.5 L, MCV 107.7 H, MCH 32.7 H, MCHC 30.4 L, RDW Std Deviation 54.2 H, RDW Coeff of Parris 13.6, Plt Count 219, MPV 12.3 H, Immature Gran % (Auto) 0.400, Neut % (Auto) 69.9, Lymph % (Auto) 18.6 L, [place] % (Auto) 6.7, Eos % (Auto) 3.8, Baso % (Auto) 0.6, Absolute Neuts (auto) 5.7, Absolute Lymphs (auto) 1.50, Nucleated RBC % 0, Sodium 140, Potassium 4.1, Chloride 116 H, Carbon Dioxide 16.0 L, Anion Gap 8, BUN 75 H, Creatinine 2.04 H, Estim Creat Clear Calc 24.31, Est GFR (MDRD) Af Amer 30 L, Est GFR (MDRD) Non-Af 25 L, BUN/Creatinine Ratio 36.8 H, Glucose 115 H, Calcium 8.7, Phosphorus 5.7 H, Magnesium 2.8 H, Total Bilirubin 0.30, AST 27, ALT 26, Alkaline Phosphatase 82, Total Protein 6.5, Albumin 3.1 L, Globulin 3.4, Albumin/Globulin Ratio 0.9, TSH 5.75 H Radiography Diagnostic Testing: Radiology Impression Abdomen CT 06/07/23 19:29 IMPRESSION: 1. Suspect constipation with possible fecal impaction and moderate dilatation of the remainder of the colon. 2. Tiny nonobstructing left renal stone. Electronically Signed: Jae Carty MD at 23:06 EST , Physical Exam Narrative GENERAL: cooperative HEENT: Atraumatic; normocephalic EYES; Anicteric, Normal Conjunctiva NECK; supple, normal thyroid, RESPIRATORY: Diminished to auscultation CARDIOVASCULAR: Regular S1 S2, GI: Distended, tympanitic to percussion : No Renal angle tenderness; EXTREMITIES: edema, no clubbing, MUSCULOSKELETAL: no muscle wasting NEURO: Awake; no lateralizing signs. SKIN: No Rash PSYCH; Flat affect Assessment & Plan Assessment/Plan (1) Constipation: QUALIFIERS: Constipation type: chronic idiopathic constipation Qualified Code(s): K59.04 - Chronic idiopathic constipation (2) Fecal impaction in rectum: (3) Acute kidney injury superimposed on chronic kidney disease: (4) Dyspnea on minimal exertion: PLAN: Plan Patient is an 82-year-old lady admitted with abdominal pain CT of the abdomen and pelvis reviewed constipation with fecal impaction and moderate dilatation of the entire colon. Admitted to regular nursing floor for further management 1. Abdominal pain ? Secondary to constipation CT scan of the abdomen and pelvis revealed evidence of constipation with possible fecal impaction and moderate dilatation of the entire colon patient admitted to the regular nursing floor for symptom management 2. Acute kidney injury ? Patient is on IV fluid with subsequent monitoring of electrolytes ordered 3. Metabolic acidosis ? Secondary to JOSE do expect improvement with rehydration 4. Anemia - Secondary to chronic disorder monitoring H&H and transfuse if patient becomes symptomatic or hemoglobin falls below 7 5. Hypothyroidism - Patient is on levothyroxine home dose continued 6. COPD ? Currently not in exacerbation aerosol treatment as needed 7. Chronic congestive heart failure with preserved ejection fraction -diuretic therapy held in view of patient JOSE 8. Hypertension - Blood pressure controlled, home medications except for lisinopril continued with dose adjustment as needed 9. 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 GERD ? On PPI 11. Generalized osteoarthritis ? With previous history of bilateral total knee replacement 11. Chronic back pain ? With spinal cord stimulator 12. Chronic lower extremity lymphedema ? Wound care nurse consulted 13. DVT prophylaxis Time spent in the patient's overall evaluation,decision-making process, review of diagnostic data, adjustment of management, discussion with other providers, nursing nursing and ancillary staff involved in patient's care documentation,50 Minutes Charges/Coding Visit Charges Inpatient E&M: 32924 [facility] L3
[2023-06-08] MEDS: Enoxaparin 30 MG/0.3 ML Syringe SC (08:47)
--- NOTE | 2023-06-08 09:35 | CASEMGMT ---
KEVIN MALONE Assessment: Face to Face with pt for initial transition planning/care coordination assessment. KEVIN MALONE introduced self and role at [facility], pt voices understanding and consents to assessment. Pt is A&O x4 and answers all questions appropriately at this time. Pt lying in bed in no distress. Care providers, pharmacy, and demographics verified/updated. Admitting Dx: severe constipation and JOSE PCP:Miryam Wells; Estelita Specialists:[facility], pt could not recall name; Mary uro; Manuel, cardio Preferred Pharmacy: [facility] [place] Insurance: [facility], [facility] Supp Prescription Benefit: yes LNOK: Mellisa Sawyer, friend; Aime Vega, son Living Arrangements: Pt lives with friend, Mellisa in a two story home with 1 step to enter. Pt then has a chair lift that can go up or down the 6 steps to living area. Pt reports she is I in ADL's and denies concerns at home. 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 Transportation: Pt drives self and denies concerns with transportation. 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 Pt has been to a Rehab in [place] as well as . Pt states no concerns with going home at time of dc. Pt states no further concerns/needs. CM to follow. Advised pt to ask CM if any further question/concerns/needs arise, voices understanding. Pt Goal: Home Plan: Home [facility] CM
[2023-06-08 09:59] VITALS: O2SAT 94
[2023-06-08] MEDS: Senna Tablet 2 TABLET PO ×2 (13:06→20:08)
[2023-06-08] MEDS: Acetaminophen 500 MG Tablet 1000 MG PO ×2 (13:07→20:08)
[2023-06-08 15:01] VITALS: BP 117/59; PULSE 74; RESP 16; TEMP 36.6; O2SAT 96
[2023-06-08 20:01] VITALS: BP 108/45; PULSE 65; RESP 18; TEMP 37.1; O2SAT 97
[2023-06-08] MEDS: oxyCODONE 5 MG Tablet PO (20:08)
[2023-06-09 04:31] VITALS: BP 115/50; PULSE 70; RESP 18; TEMP 36.8; O2SAT 99
[2023-06-09] MEDS: Gabapentin 300 MG Capsule PO (04:35)
[2023-06-09] MEDS: Acetaminophen 500 MG Tablet 1000 MG PO (04:35)
[2023-06-09] MEDS: Levothyroxine 125 MCG Tablet PO (04:35)
[2023-06-09] MEDS: oxyCODONE 5 MG Tablet PO (04:35)
[2023-06-09] MEDS: 0.9% Normal Saline (1000mL) 1,000 ML 125 ML IV (04:36)
[2023-06-09 04:54] VITALS: BMI 40.0
[2023-06-09 06:58] LABS: Basophil# 0.03 X10^3/uL; Basophil% 0.7 % (0-1); Eosinophil# 0.39 X10^3/uL; Eosinophils% 8.5 % (0-5); Hematocrit 33.6 % (37-47); Hemoglobin 10.2 g/dL (12.0-15.0); Mean Corp Hgb Conc 30.4 g/dL (32-36); Mean Corpuscular Hgb 32.8 pg (27.0-32.0); Mean Platelet Vol. 12.6 fl (6.2-12.0); Monocyte# 0.41 X10^3/uL; Monocyte% 8.9 % (0-10); NRBC Flagged by Analyzer 0 % (0-5); Neutrophil # 1.97 X10^3/uL (2.7-7.7); Neutrophil % 42.7 % (47-70); Platelet Count 188 K/mm3 (150-450); RBC Distribution Width CV 13.7 % (11.6-14.6); RBC Distribution Width SD 54.6 fl (35.1-43.9); Red Blood Count 3.11 M/mm3 (4.2-5.4); White Blood Count 4.6 K/mm3 (4.4-11.0)
--- NOTE | 2023-06-09 07:46 | PCM.PN.HOSP ---
Reason for Visit Reason for Visit: Diagnoses Fecal impaction (06/08/23) Chronic idiopathic constipation (06/08/23) Acute kidney failure, unspecified (06/08/23) Chronic kidney disease, unspecified (06/08/23) Dyspnea, unspecified (06/08/23) Subjective Subjective Patient seen abdominal distention resolved finally had several loose bowel movement with significant relief Objective Data Objective Data Vital Signs: Vital Signs Temp Pulse Resp BP Pulse Ox O2 Del Method 98.3 F 70 18 115/50 L 99 Room Air 06/09/23 04:31 06/09/23 04:31 06/09/23 04:31 06/09/23 04:31 06/09/23 04:31 06/09/23 04:31 Oxygen Delivery Method Room Air Weight: 98.7 kg Body Mass Index (BMI) 40.0 Intake & Output: Intake and Output for Last 24 Hours 06/07/23 06/08/23 06/09/23 23:59 23:59 23:59 Intake Total 1000 / 1000 2520.83 / 2520.83 783.33 / 783.33 Balance 1000 / 1000 2520.83 / 2520.83 783.33 / 783.33 Lab / Micro Data 06/09/23 06:05 06/09/23 06:05 Labs: Laboratory Results - last 24 hr 06/09/23 06:05: WBC 4.6, RBC 3.11 L, Hgb 10.2 L, Hct 33.6 L, MCV 108.0 H, MCH 32.8 H, MCHC 30.4 L, RDW Std Deviation 54.6 H, RDW Coeff of Parris 13.7, Plt Count 188, MPV 12.6 H, Immature Gran % (Auto) 0.200, Neut % (Auto) 42.7 L, Lymph % (Auto) 39.0, [place] % (Auto) 8.9, Eos % (Auto) 8.5 H, Baso % (Auto) 0.7, Absolute Neuts (auto) 2.0, Absolute Lymphs (auto) 1.80, Nucleated RBC % 0 Physical Exam Narrative GENERAL: cooperative HEENT: Atraumatic; normocephalic EYES; Anicteric, Normal Conjunctiva NECK; supple, normal thyroid, RESPIRATORY: Diminished to auscultation CARDIOVASCULAR: Regular S1 S2, GI: Distended, tympanitic to percussion : No Renal angle tenderness; EXTREMITIES: edema, no clubbing, MUSCULOSKELETAL: no muscle wasting NEURO: Awake; no lateralizing signs. SKIN: No Rash PSYCH; Flat affect Assessment & Plan Assessment/Plan (1) Constipation: QUALIFIERS: Constipation type: chronic idiopathic constipation Qualified Code(s): K59.04 - Chronic idiopathic constipation (2) Fecal impaction in rectum: (3) Acute kidney injury superimposed on chronic kidney disease: (4) Dyspnea on minimal exertion: PLAN: Plan Patient is an 82-year-old lady admitted with abdominal pain CT of the abdomen and pelvis reviewed constipation with fecal impaction and moderate dilatation of the entire colon. Admitted to regular nursing floor for further management 1. Abdominal pain ? Secondary to constipation CT scan of the abdomen and pelvis revealed evidence of constipation with possible fecal impaction and moderate dilatation of the entire colon patient admitted to the regular nursing floor for symptom management 2. Acute kidney injury ? Patient is on IV fluid with subsequent monitoring of electrolytes ordered 3. Metabolic acidosis ? Secondary to JOSE do expect improvement with rehydration 4. Anemia - Secondary to chronic disorder monitoring H&H and transfuse if patient becomes symptomatic or hemoglobin falls below 7 5. Hypothyroidism - Patient is on levothyroxine home dose continued 6. COPD ? Currently not in exacerbation aerosol treatment as needed 7. Chronic congestive heart failure with preserved ejection fraction -diuretic therapy held in view of patient JOSE 8. Hypertension - Blood pressure controlled, home medications except for lisinopril continued with dose adjustment as needed 9. 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 GERD ? On PPI 11. Generalized osteoarthritis ? With previous history of bilateral total knee replacement 11. Chronic back pain ? With spinal cord stimulator 12. Chronic lower extremity lymphedema ? Wound care nurse consulted 13. DVT prophylaxis
[2023-06-09 08:18] VITALS: BP 139/77; PULSE 67; RESP 18; TEMP 36.7; O2SAT 100
--- NOTE | 2023-06-09 08:20 | DS.PCM_ITS ---
Providers Date of Admission: 06/08/23 Date of Discharge: 06/09/23 Primary Care Physician: BROOKLYN Aguillon Reason For Visit: SEVERE CONSTIPATION AND JOSE Diagnosis Discharge Diagnosis (1) Constipation: Status: Acute Code(s): K59.00 - Constipation, unspecified Qualifiers: Constipation type: chronic idiopathic constipation Qualified Code(s): K59.04 - Chronic idiopathic constipation (2) Fecal impaction in rectum: Status: Acute Code(s): K56.41 - Fecal impaction (3) Acute kidney injury superimposed on chronic kidney disease: Status: Chronic Code(s): N17.9 - Acute kidney failure, unspecified; N18.9 - Chronic kidney disease, unspecified (4) Dyspnea on minimal exertion: Status: Acute Code(s): R06.00 - Dyspnea, unspecified Plan Patient is an 82-year-old lady admitted with abdominal pain CT of the abdomen and pelvis reviewed constipation with fecal impaction and moderate dilatation of the entire colon. Admitted to regular nursing floor for further management 1. Abdominal pain ? Secondary to constipation CT scan of the abdomen and pelvis revealed evidence of constipation with possible fecal impaction and moderate dilatation of the entire colon patient admitted to the regular nursing floor for symptom management 2. Acute kidney injury ? Patient is on IV fluid with subsequent monitoring of electrolytes ordered 3. Metabolic acidosis ? Secondary to JOSE do expect improvement with rehydration 4. Anemia - Secondary to chronic disorder monitoring H&H and transfuse if patient becomes symptomatic or hemoglobin falls below 7 5. Hypothyroidism - Patient is on levothyroxine home dose continued 6. COPD ? Currently not in exacerbation aerosol treatment as needed 7. Chronic congestive heart failure with preserved ejection fraction -diuretic therapy held in view of patient JOSE 8. Hypertension - Blood pressure controlled, home medications except for lisinopril continued with dose adjustment as needed 9. 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 GERD ? On PPI 11. Generalized osteoarthritis ? With previous history of bilateral total knee replacement 11. Chronic back pain ? With spinal cord stimulator Medications at Discharge Home Medications omeprazole 20 mg capsule,delayed release 20 mg PO DAILY 11/13/17 zinc 50 mg tablet 50 mg PO DAILY 02/09/18 glucosamine 500 il-cleqjnmzt-tvfrcxgi comp 400 mg-D3 667 unit-C-Mn cap 1 cap PO TID 10/17/19 hydrocortisone-pramoxine 2.5 %-1 % (4g) rectal cream 1 applic RI BID 10/17/19 zolpidem 10 mg tablet 10 mg PO QHS SLEEP 01/09/21 calcium acetate(phosphat bind) 667 mg capsule 667 mg PO TID 07/25/21 calcium carbonate 600 mg-vitamin D3 10 mcg (400 unit) capsule 1 cap PO BID 07/25/21 cholecalciferol (vitamin D3) 25 mcg (1,000 unit) capsule 50 mcg PO DAILY 07/25/21 cyclobenzaprine 10 mg tablet 10 mg PO BID PRN Muscle Spasm 07/25/21 levonorgestrel 21 mcg/24 hours (8 yrs) 52 mg intrauterine device (Mirena) 1 mcg intrauterine ONCE 07/25/21 levothyroxine 125 mcg tablet 125 mcg PO DAILY 07/25/21 vitamin B complex 1 cap PO DAILY 07/25/21 vitamin E mixed 400 unit capsule 400 unit PO DAILY 07/25/21 ascorbate calcium (vitamin C) 500 mg tablet 500 mg PO DAILY 12/19/21 pyridoxine (vitamin B6) 100 mg tablet (Vitamin B-6) 100 mg PO DAILY 12/19/21 acetaminophen 500 mg tablet 1,000 mg PO BID 06/27/22 gabapentin 300 mg capsule 300 mg PO TID 06/27/22 magnesium oxide 200 mg PO DAILY 06/27/22 multivitamin 1 tab PO DAILY 06/27/22 nitroglycerin 0.4 mg sublingual tablet 0.4 mg sublingual Q5M PRN chest pain #30 tabs 06/27/22 aspirin 81 mg tablet,delayed release (Adult Aspirin Regimen) 81 mg PO DAILY 07/11/22 furosemide 20 mg tablet (Lasix) 20 mg PO DAILY #90 tabs 10/03/22 lisinopril 10 mg tablet 10 mg PO DAILY 06/07/23 vibegron 75 mg tablet (Gemtesa) 75 mg PO DAILY 06/07/23 polyethylene glycol 3350 17 gram oral powder packet 17 g PO DAILY #30 ea 06/09/23 Hospital Course Summary of Care Provided Minutes Spent on Discharge: 35 Physical Exam Narrative GENERAL: cooperative HEENT: Atraumatic; normocephalic EYES; Anicteric, Normal Conjunctiva NECK; supple, normal thyroid, RESPIRATORY: Diminished to auscultation CARDIOVASCULAR: Regular S1 S2, GI: Distended, tympanitic to percussion : No Renal angle tenderness; EXTREMITIES: edema, no clubbing, MUSCULOSKELETAL: no muscle wasting NEURO: Awake; no lateralizing signs. SKIN: No Rash PSYCH; Flat affect Weight / BMI Weight Weight: 98.7 kg Body Mass Index (BMI) 40.0 ABG / Lab / Microbiology Data 06/09/23 06:05 06/08/23 05:55 Laboratory: Laboratory Results - last 24 hr 06/09/23 06:05: WBC 4.6, RBC 3.11 L, Hgb 10.2 L, Hct 33.6 L, MCV 108.0 H, MCH 32 .8 H, MCHC 30.4 L, RDW Std Deviation 54.6 H, RDW Coeff of Parris 13.7, Plt Count 188, MPV 12.6 H, Immature Gran % (Auto) 0.200, Neut % (Auto) 42.7 L, Lymph % (Auto) 39.0, [place] % (Auto) 8.9, Eos % (Auto) 8.5 H, Baso % (Auto) 0.7, Absolute Neuts (auto) 2.0, Absolute Lymphs (auto) 1.80, Nucleated RBC % 0 D/C Instructions Discharge Diet: No restrictions Discharge Activity: Return to Normal Activity Call your doctor if you observe: Fever of 101 or Higher, Shortness of breath, Fainting spells and Chest pain Meaningful Use Info Meaningful Use Diagnoses (Choose all that apply): None applicable Discharge Plan Admission Admit Date/Time: 06/08/23 00:28 Attending Provider: Ralph Haynes Primary Care Provider: Miryam Wells Consulting Providers: aRlph Wheeler Discharge Orders/Prescriptions Prescriptions: New polyethylene glycol 3350 17 gram Powder In Packet 17 g PO DAILY Qty: 30 0RF Continued zinc 50 mg tablet 50 mg PO DAILY glucosamine 500 vj-skoirqutg-auemorrg comp 400 mg-D3 667 unit-C-Mn cap 500-400-667 mg-mg-unit capsule 1 cap PO TID hydrocortisone-pramoxine 2.5-1 % (4g) cream 1 applic RC BID levothyroxine 125 mcg tablet 125 mcg PO DAILY Patient Comments: TAKE 1 TABLET BY MOUTH ONCE DAILY. TAKE ON EMPTY STOMACH. FOR THYROID. cyclobenzaprine 10 mg tablet 10 mg PO BID PRN (Reason: Muscle Spasm) calcium carbonate-vitamin D3 600 mg-10 mcg (400 unit) capsule 1 cap PO BID vitamin B complex Capsule 1 cap PO DAILY calcium acetate(phosphat bind) 667 mg capsule 667 mg PO TID cholecalciferol (vitamin D3) 25 mcg (1,000 unit) capsule 50 mcg PO DAILY vitamin E mixed 400 unit capsule 400 unit PO DAILY Mirena 20 mcg/24 hours (7 yrs) 52 mg intrauterine device 1 mcg intrauterine ONCE pyridoxine (vitamin B6) [Vitamin B-6] 100 mg tablet 100 mg PO DAILY ascorbate calcium (vitamin C) 500 mg tablet 500 mg PO DAILY acetaminophen 500 mg tablet 1,000 mg PO BID multivitamin Tablet 1 tab PO DAILY gabapentin 300 mg capsule 300 mg PO TID Patient Comments: TAKE ONE PILL BY MOUTH 3 TIMES PER DAY magnesium oxide 200 mg magnesium tablet 200 mg PO DAILY nitroglycerin 0.4 mg tablet, sublingual 0.4 mg sublingual Q5M PRN (Reason: chest pain) Qty: 30 1RF Rx Instructions: do not exceed 3 doses per episode furosemide [Lasix] 20 mg tablet 20 mg PO DAILY Qty: 90 3RF omeprazole 20 MG capsule 20 mg PO DAILY zolpidem 10 mg tablet 10 mg PO QHS Gemtesa 75 mg tablet 75 mg PO DAILY Patient Comments: TAKE 1 TABLET BY MOUTH EVERY DAY lisinopril 10 mg tablet 10 mg PO DAILY Patient Comments: per patient aspirin [Adult Aspirin Regimen] 81 mg tablet,delayed release (DR/EC) 81 mg PO DAILY Referrals / Follow Up: Miryam Wells NP-C [Primary Care Provider] - Marko Capone MD [Non-Staff] - Disposition Disposition (needs filled in before D/C Order can be placed): Home, Self Care Charges/Coding Visit Charges Inpatient E&M: 54787 Disch Hosp >30min
[2023-06-09 08:24] LABS: Anion Gap 4 (5-15); BUN 59 mg/dL (7-18); BUN/Creat Ratio 36.2 RATIO (10-20); Calcium,Total 8.2 mg/dL (8.5-10.1); Chloride 118 mmol/L (98-107); Creatinine, Serum 1.63 mg/dL (0.55-1.02); EST Glomerular Filtration Rate 32 mL/min (>60); Est Glom Filt Rate - Afr Amer 39 mL/min (>60); Estimated Creatinine Clearance 30.22 ml/min; Glucose 83 mg/dL (74-106); Magnesium 2.5 mg/dL (1.6-2.6); Phosphorus 4.2 mg/dL (2.5-4.9); Sodium Level 140 mmol/L (136-145)
[2023-06-09] MEDS: Calcium Carb/Vitamin D 1 TABLET Tablet PO (08:25)
[2023-06-09] MEDS: Calcium Acetate 667 MG Capsule PO (08:25)
[2023-06-09] MEDS: Multivitamins,Therapeutic Tablet 1 TABLET PO (08:25)
[2023-06-09] MEDS: Aspirin E.C. 81 MG Tablet PO (08:26)
[2023-06-09 09:05] VITALS: O2SAT 93
[2023-06-09] MEDS: Pantoprazole Sodium 20 MG Tablet PO (10:19)
[2023-06-09] MEDS: Vitamin B Comp W-C Capsule 1 CAP PO (10:19)
[2023-06-09] MEDS: Ascorbic Acid 500 MG Tablet PO (10:19)
[2023-06-09] MEDS: Zinc Sulfate 50 mg zinc (220 mg) ORAL capsule PO (10:19)
[2023-06-09] MEDS: Cholecalciferol (VIT D3) 25 MCG TABLET (1,000 UNITS) 50 MCG PO (10:19)
[2023-06-09] MEDS: Pyridoxine HCl 100 MG Tablet PO (10:19)
[2023-06-09] MEDS: Vibegron 75 MG TABLET PO (10:19)
== END 2023-06-09 10:36 | disposition home or self-care (01) | DRG 683 ==
LOC: ED 23:15 → MS3 06-08 00:46
PROVIDERS: Physician Assistant; Admitting Provider Internal Medicine; Emergency Provider Emergency Medicine; PCP Nurse Practitioner Family; Visit Provider Internal Medicine
DX: N17.9 Acute kidney failure, unspecified (principal); E87.20 Acidosis, unspecified; I13.0 Hypertensive heart and chronic kidney disease with heart failure and stage 1 through stage 4 chronic kidney disease, or unspecified chronic kidney disease; I50.32 Chronic diastolic (congestive) heart failure; D63.8 Anemia in other chronic diseases classified elsewhere; J44.9 Chronic obstructive pulmonary disease, unspecified; N18.30 Chronic kidney disease, stage 3 unspecified; K56.41 Fecal impaction; E03.9 Hypothyroidism, unspecified; M17.0 Bilateral primary osteoarthritis of knee; K21.9 Gastro-esophageal reflux disease without esophagitis; M54.9 Dorsalgia, unspecified; G47.33 Obstructive sleep apnea (adult) (pediatric); I89.0 Lymphedema, not elsewhere classified; Z68.38 Body mass index [BMI] 38.0-38.9, adult; Z79.2 Long term (current) use of antibiotics; Z79.82 Long term (current) use of aspirin; G89.29 Other chronic pain; E66.9 Obesity, unspecified; Z90.49 Acquired absence of other specified parts of digestive tract; Z79.899 Other long term (current) drug therapy; Z96.653 Presence of artificial knee joint, bilateral; R06.00 Dyspnea, unspecified; R53.1 Weakness; Z98.84 Bariatric surgery status
CPT/HCPCS: 36415; 74176; 80048; 80053; 83735; 84100; 84443; 85025; 99285; J7030; A4216; J2405

== ENCOUNTER → 2023-10-06 | Outpatient (CLI) | payer MEDICARE, OTHER, SELFPAY ==
--- NOTE | 2023-10-06 14:53 | VDLE_ITS ---
Reason For Study: Bilateral leg swelling RIGHT LEFT GSV is normal. GSV is normal. CFV is compressible, spontaneous, phasic, CFV is compressible, spontaneous, phasic, competent and demonstrates normal competent, and demonstrates normal augmentation. augmentation. FV is compressible, spontaneous, phasic, FV is compressible, spontaneous, phasic, competent and demonstrates normal competent and demonstrates normal augmentation. augmentation. POP V is compressible, spontaneous, phasic, POP V is compressible, spontaneous, phasic, competent and demonstrates normal competent and demonstrates normal augmentation. augmentation. T/P Trunk is compressible. T/P Trunk is compressible. PTV is compressible. PTV is compressible. RT PerV is compressible. LT PerV is compressible. Procedure This is a venous duplex using B-mode, color flow and spectral Doppler. Exam performed in department. A preliminary report was called and/or faxed to Voicemail. VL/Venous Duplex US - Tao Extrem Interpretation Summary Deep veins of the bilateral lower extremities are patent and compressible segme ntally. There is no evidence of bilateral lower extremity deep vein thrombosis. The bilateral great saphenous veins appear patent and compressible segmentally. Ordering Physician: Norberto Jackson Referring Physician: Miryam Wells Performed By: Charlette Shane RVT and Student
--- NOTE | 2023-10-06 15:35 | RAD_ITS ---
STUDY: X-RAY - LEFT KNEE REASON FOR EXAM: Female, 83 years old. pain TECHNIQUE: 2 view(s) of the knee. COMPARISON: None. FINDINGS: Normal visualized distal femur. Normal visualized proximal tibia and fibula. Normal proximal tibiofibular articulation. Status post total knee arthroplasty. The prosthesis appears located. No ostial lysis to suggest loosening.. The soft tissue structures are unremarkable. Skin lamonte medial to the medial femoral condyle and lateral to the fibular head. RAD/Knee 1 or 2 Views IMPRESSION: Normal x-ray examination of the knee after total knee arthroplasty. Electronically Signed: Jae Carty MD at 16:46 EDT ,
--- NOTE | 2023-10-06 15:35 | RAD_ITS ---
STUDY: X-RAY - RIGHT KNEE REASON FOR EXAM: Female, 83 years old. PAIN TECHNIQUE: 2 view(s) of the knee. COMPARISON: 08/31/2016 FINDINGS: Normal visualized distal femur. Normal visualized proximal tibia and fibula. Normal proximal tibiofibular articulation. Status post total knee arthroplasty with resection of the distal femur which appears intact. No ostial lysis to suggest loosening. . The soft tissue structures are unremarkable. RAD/Knee 1 or 2 Views IMPRESSION: No change from 08/31/2016. Electronically Signed: Jae Carty MD at 16:45 EDT ,
== END | disposition home or self-care (01) ==
LOC: CVS 14:52
PROVIDERS: PCP Nurse Practitioner Family; Referring Provider Internal Medicine Cardiovascular Disease; Visit Provider Internal Medicine Cardiovascular Disease
DX: I82.409 Acute embolism and thrombosis of unspecified deep veins of unspecified lower extremity (principal); M79.89 Other specified soft tissue disorders
CPT/HCPCS: 73560; 93970

== ENCOUNTER → 2023-12-01 | Outpatient (CLI) | payer MEDICARE, OTHER, SELFPAY ==
[2023-12-01 17:25] LABS: Hematocrit 35.4 % (37-47); Hemoglobin 10.7 g/dL (12.0-15.0); Mean Corp Hgb Conc 30.2 g/dL (32-36); Mean Corpuscular Hgb 31.8 pg (27.0-32.0); Mean Corpuscular Volume 105.4 fL (81-99); Mean Platelet Vol. 12.3 fl (6.2-12.0); Platelet Count 267 K/mm3 (150-450); RBC Distribution Width CV 14.3 % (11.6-14.6); RBC Distribution Width SD 55.7 fl (35.1-43.9); Red Blood Count 3.36 M/mm3 (4.2-5.4); White Blood Count 7.9 K/mm3 (4.4-11.0)
[2023-12-01 17:43] LABS: PTHIN 195.9 pg/mL (18.4-80.1); Protein, Urine (Random) 14.9 mg/dL (<11.9); Protein:Creat Ratio 316 mg/g CRE (0-200)
[2023-12-01 17:49] LABS: Albumin, Serum 3.1 g/dL (3.2-5.0); BUN 80 mg/dL (7-18); BUN/Creat Ratio 42.6 RATIO (10-20); Calcium,Total 8.7 mg/dL (8.5-10.1); Chloride 114 mmol/L (98-107); Creatinine, Serum 1.88 mg/dL (0.55-1.02); EST Glomerular Filtration Rate 27 mL/min (>60); Est Glom Filt Rate - Afr Amer 33 mL/min (>60); Glucose 108 mg/dL (74-106); Phosphorus 4.4 mg/dL (2.5-4.9); Potassium 4.5 mmol/L (3.5-5.1); Sodium Level 141 mmol/L (136-145)
[2023-12-01 17:57] LABS: Vitamin D,25 Hydroxy 28.3 ng/mL
== END | disposition home or self-care (01) ==
LOC: LAB 16:41
PROVIDERS: PCP Nurse Practitioner Family; Referring Provider Internal Medicine Nephrology; Visit Provider Internal Medicine Nephrology
DX: N18.32 Chronic kidney disease, stage 3b (principal)
CPT/HCPCS: 36415; 80069; 82306; 82570; 83970; 84156; 85027

== ENCOUNTER 2024-02-16 10:30 | Outpatient (RCR) | payer MEDICARE, OTHER, SELFPAY ==
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
--- NOTE | 2024-02-16 11:39 | HP.PTDCSUM ---
Discharge Summary D/C summary: It has been my pleasure to treat MARI LOPEZ referred by BROOKLYN Aguillon, with the diagnosis of Balance problems and falls for a total of 17 visit(s). Discharge Date: 02/16/24 Please see the following information for a summary of their discharge status. Subjective Subjective: Has nachines down pat and will continue them. Will have shoulder replaced Thursday and will have rehab here. L TSA. Balance feels better and can get around well. Can get out of chair without hands. No AD needed. Pain shoulders: Pain Intensity (Out of 10): 8 L knee pain: Pain Intensity (Out of 10): 7 R knee: Pain Intensity (Out of 10): 2 Overall Improvement % Improvement: 70 Objective Objective/Function: Steps with just R ascending, pulling quite a bit but able. Can avoid steps at home when needs to and has two rails. Walking well without AD today, plans to continue strength up until surgery and get back to it afterwards. Goals Goal 1:: i appropriate HEP for shoulder ROM, general strength and LE fluid dynamics and balance and movement to limit futre problems. Goal Progress: Goal Met Goal 2:: Pt feel 50% better in mobility without increased pain Goal Progress: Goal Met Goal 3:: FGA to limit fall risk Goal Progress: Progressing Goal 4:: LEFS score 40 Goal Progress: Goal Met Plan Plan: d/c to I gym program, has list. D/C Information d/c sentence: If there are questions or concerns regarding this patient's physical therapy, please feel free to call me at [phone]. Thank you for the referral of this patient. Sincerely, Russell Levy, DPT, OCS, CSCS Balance/Gait/Functional tests Balance/Special Test Scores Functional Gait Assessment Score: 23 % Disability: 23.3400 CATSIB Score (Max score 120 seconds): 120 Lower Extremity Functional Score: 45 Improvement % Improvement: 70
== END 2024-02-16 19:00 | disposition home or self-care (01) ==
LOC: PT 10:30
PROVIDERS: PCP Nurse Practitioner Family; Referring Provider Nurse Practitioner Family; Visit Provider Nurse Practitioner Family
DX: R26.89 Other abnormalities of gait and mobility (principal); R29.6 Repeated falls
CPT/HCPCS: 97110; 97116; 97163; 97530

== ENCOUNTER 2024-02-24 14:13 | Inpatient (IN) | payer MEDICARE, OTHER, SELFPAY ==
[2024-02-24 15:20] VITALS: BP 102/40; PULSE 94; RESP 17; TEMP 37; O2SAT 97
[2024-02-24 15:42] VITALS: BMI 46.6
[2024-02-24] MEDS: Calcium Carbonate 500 MG Tablet PO (17:21)
[2024-02-24] MEDS: Gabapentin 300 MG Capsule PO (17:21)
[2024-02-24] MEDS: oxyCODONE 5 MG Tablet PO (17:25)
[2024-02-24 18:00] VITALS: BP 102/48; PULSE 94; RESP 17; TEMP 37; O2SAT 97
[2024-02-24] MEDS: cycloBENZAPRine HCl 10 MG Tablet PO (21:01)
[2024-02-24] MEDS: MELATONIN 3 MG TABLET 1.5 MG PO (21:01)
[2024-02-24] MEDS: Senna/Docusate Sodium 1 Tablet 2 TABLET PO (21:02)
[2024-02-24] MEDS: Zinc Sulfate 50 mg zinc (220 mg) ORAL capsule PO (21:02)
[2024-02-24] MEDS: Acetaminophen 500 MG Tablet 1000 MG PO (21:02)
[2024-02-24 22:00] VITALS: RESP 18
[2024-02-25] MEDS: oxyCODONE 5 MG Tablet PO (00:29)
[2024-02-25] MEDS: Levothyroxine 125 MCG Tablet PO (05:24)
[2024-02-25] MEDS: Acetaminophen 500 MG Tablet 1000 MG PO ×3 (05:24→23:40)
[2024-02-25] MEDS: cycloBENZAPRine HCl 10 MG Tablet PO ×2 (05:24→08:21)
[2024-02-25] MEDS: Zinc Sulfate 50 mg zinc (220 mg) ORAL capsule PO ×3 (05:24→23:50)
[2024-02-25 05:26] VITALS: BP 120/45; PULSE 88; RESP 16; TEMP 37.1; O2SAT 97
[2024-02-25 07:42] LABS: Absolute Lymphocyte Count 1.82 X10^3/uL (0.83-4.51); Absolute Neutrophil Count 3.9 X10^3/uL (2.0-7.7); Basophil# 0.04 X10^3/uL; Basophil% 0.6 % (0-1); Eosinophils% 5.8 % (0-5); Hematocrit 33.3 % (37-47); Hemoglobin 10.2 g/dL (12.0-15.0); Lymphocyte # 1.82 X10^3/ul (0.83-4.51); Lymphocyte % 26.2 % (19-41); Mean Corp Hgb Conc 30.6 g/dL (32-36); Mean Corpuscular Hgb 32.8 pg (27.0-32.0); Mean Corpuscular Volume 107.1 fL (81-99); Mean Platelet Vol. 12.2 fl (6.2-12.0); Monocyte# 0.73 X10^3/uL; Monocyte% 10.5 % (0-10); NRBC Flagged by Analyzer 0 % (0-5); Neutrophil # 3.92 X10^3/uL (2.7-7.7); Neutrophil % 56.5 % (47-70); Platelet Count 183 K/mm3 (150-450); RBC Distribution Width CV 13.6 % (11.6-14.6); RBC Distribution Width SD 53.3 fl (35.1-43.9); Red Blood Count 3.11 M/mm3 (4.2-5.4); White Blood Count 6.9 K/mm3 (4.4-11.0)
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
[2024-02-25 08:17] LABS: Platelet Count 191 K/mm3 (150-450); RET-HE 32.4 pg (30-35); Reticulocyte Count 2.34 % (0.5-1.5)
[2024-02-25] MEDS: Gabapentin 300 MG Capsule PO ×3 (08:18→16:29)
[2024-02-25] MEDS: Senna/Docusate Sodium 1 Tablet 2 TABLET PO ×2 (08:19→23:40)
[2024-02-25] MEDS: Multivitamins,Therapeutic Tablet 1 TABLET PO (08:19)
[2024-02-25] MEDS: Ascorbic Acid 500 MG Tablet PO (08:20)
[2024-02-25] MEDS: Calcium Carbonate 500 MG Tablet PO ×2 (08:20→16:30)
[2024-02-25] MEDS: Magnesium Chloride 64 MG Delay Rel.Tablet 128 MG PO (08:20)
[2024-02-25] MEDS: Furosemide 20 MG Tablet 60 MG PO (08:21)
[2024-02-25] MEDS: Pyridoxine HCl 100 MG Tablet PO (08:22)
[2024-02-25] MEDS: Cholecalciferol (VIT D3) 25 MCG TABLET (1,000 UNITS) 50 MCG PO (08:22)
[2024-02-25] MEDS: Vitamin E 400 UNITS Capsule PO (08:23)
[2024-02-25] MEDS: Pantoprazole Sodium 20 MG Tablet PO (08:23)
[2024-02-25] MEDS: Vibegron 75 MG TABLET PO (08:23)
[2024-02-25] MEDS: Lisinopril 10 MG Tablet PO (08:23)
[2024-02-25] MEDS: Polyethylene Glycol 3350 17 GM PACKET PO (08:23)
[2024-02-25 08:26] LABS: ALB/GLOB Ratio 0.7 RATIO (0.9-2.4); AST(SGOT) 22 U/L (15-37); Alanine Aminotransfer ALT/SGPT 20 U/L (13-56); Albumin, Serum 2.5 g/dL (3.2-5.0); Alkaline Phosphatase 62 U/L (45-117); Anion Gap 6 (5-15); BUN 69 mg/dL (7-18); BUN/Creat Ratio 44.2 RATIO (10-20); Calcium,Total 8.1 mg/dL (8.5-10.1); Chloride 114 mmol/L (98-107); Creatinine, Serum 1.56 mg/dL (0.55-1.02); EST Glomerular Filtration Rate 34 mL/min (>60); Est Glom Filt Rate - Afr Amer 41 mL/min (>60); Globulin 3.5 g/dL (2.2-4.2); Glucose 109 mg/dL (74-106); Magnesium 2.1 mg/dL (1.6-2.6); Phosphorus 4.6 mg/dL (2.5-4.9); Potassium 4.6 mmol/L (3.5-5.1); Sodium Level 138 mmol/L (136-145)
[2024-02-25 08:34] LABS: Vitamin B12 561 pg/mL (211-911)
[2024-02-25 09:13] LABS: T4 Free Direct 1.68 ng/dL (0.76-1.46); Thyroid Stim Hormone (TSH) 0.449 uIU/mL (0.358-3.740)
[2024-02-25 10:00] VITALS: RESP 17
[2024-02-25 11:14] VITALS: BP 116/65; PULSE 88; RESP 17; O2SAT 97
[2024-02-25 12:16] LABS: Ferritin 94 ng/mL (8-252); Iron 26 ug/dL (50-170); Iron Binding Capacity,Total 396 ug/dL (250-450); PERCENT IRON SATURATION 6.6 % (15.0-55.0)
--- NOTE | 2024-02-25 14:04 | NURSING ---
Called Dr Castañeda office at [facility], no answer, left a VM stating we needed information on an order for when to remove left shoulder lamonte as well as information on any prophylactic PE medication to administer.
--- NOTE | 2024-02-25 15:23 | CHAPLAIN ---
Type of Pastoral Visit ___ Initial Visit ___ Follow-up Visit ___ On-call Visit ___ General Patient Visit ___ Spiritual Assessment ___ Family Conference ___ Bereavement ___ Rapid Response ___ Code Blue ___ Other (describe below) Pastoral Care Referral From ___ Patient ___ Family ___ Nurse ___ Physician ___ Manager Diabetes ___ Plastics Supervisor ___ Other (describe below) Sacrament/Intervention ___ Active listening ___ Anointing ___ Latter-Day ___ Bereavement ___ Communion ___ Jade exploration ___ ___ Life review ___ Prayer ___ Reconciliation ___ Sacrament of Sick ___ Supportive presence ___ Wedding ___ Other (describe below) Pastoral Comments patient was sleeping and did not awaken at the call of her name
[2024-02-25] MEDS: Sodium Ferric Gluconat/Sucrose 125 MG in 0.9% Normal Saline (100mL Bag) 100 ML 110 MG IV (16:37)
--- NOTE | 2024-02-25 17:17 | NURSING ---
pt's neck measures at 40 cm
[2024-02-25 18:00] VITALS: BP 126/67; PULSE 91; RESP 16; TEMP 36.4; O2SAT 96
[2024-02-25 21:10] VITALS: PULSE 95; O2SAT 96
[2024-02-25 23:00] VITALS: RESP 17
[2024-02-25] MEDS: Zolpidem Tartrate 5 MG Tablet PO (23:40)
[2024-02-25] MEDS: Petrolatum 33% Tube 1 APPLIC TOPICAL (23:41)
[2024-02-26 06:00] VITALS: BP 132/66; PULSE 90; RESP 18; TEMP 36.9; O2SAT 94
[2024-02-26] MEDS: Zinc Sulfate 50 mg zinc (220 mg) ORAL capsule PO ×3 (07:31→21:47)
[2024-02-26] MEDS: Levothyroxine 125 MCG Tablet PO (07:31)
[2024-02-26] MEDS: Acetaminophen 500 MG Tablet 1000 MG PO ×3 (07:31→21:47)
[2024-02-26] MEDS: oxyCODONE 5 MG Tablet PO ×3 (07:36→21:48)
[2024-02-26 07:42] VITALS: O2SAT 98
[2024-02-26] MEDS: Senna/Docusate Sodium 1 Tablet 2 TABLET PO ×2 (08:29→21:50)
[2024-02-26] MEDS: Vitamin E 400 UNITS Capsule PO (08:30)
[2024-02-26] MEDS: Vibegron 75 MG TABLET PO (08:30)
[2024-02-26] MEDS: Calcium Carbonate 500 MG Tablet PO ×2 (08:31→16:42)
[2024-02-26] MEDS: Magnesium Chloride 64 MG Delay Rel.Tablet 128 MG PO (08:31)
[2024-02-26] MEDS: Multivitamins,Therapeutic Tablet 1 TABLET PO (08:31)
[2024-02-26] MEDS: Pyridoxine HCl 100 MG Tablet PO (08:32)
[2024-02-26] MEDS: Polyethylene Glycol 3350 17 GM PACKET PO (08:32)
[2024-02-26] MEDS: Furosemide 20 MG Tablet 60 MG PO (08:32)
[2024-02-26] MEDS: Cholecalciferol (VIT D3) 25 MCG TABLET (1,000 UNITS) 50 MCG PO (08:33)
[2024-02-26] MEDS: Ascorbic Acid 500 MG Tablet PO (08:33)
[2024-02-26] MEDS: Lisinopril 10 MG Tablet PO (08:35)
[2024-02-26] MEDS: Pantoprazole Sodium 20 MG Tablet PO (08:35)
[2024-02-26] MEDS: Gabapentin 300 MG Capsule PO ×3 (08:38→16:45)
--- NOTE | 2024-02-26 10:21 | REHABEVAL_ITS ---
Admission Information Primary Diagnosis:: Debility secondary to left reverse shoulder replacement Status Changes from Prescreening?: No changes Identified Actual Problem List:: Skin Intergrity, Pain, ALteration in Cmfrt, Bowel, Constipation, Alteration in Sleep, Mobility Impaired, Self Care Deficit, Al teration/ Air Exchange and Alteration-Leisure Activ. Potential Problem List:: DVT, Bleeding, Infection, UTI, Aspiration, Falls, Skin Integrity and Depression Risk of Complications DVT: - (ASA 81 mg twice daily x 4 weeks per orthopedics. Gen wraps to the lower extremities during the day.) Bleeding: Monitor Lab Values, Nursing to Teach Precautions for anti-coagulation therapy., Wound, if applicable, to be assessed every shift. and Stroke patients assessed for lethargy or change in status. Infection: Clinical Staff to Monitor for S/S of infection: and S/S of infection include fever, redness, warmth, etc. Urinary Tract Infection: Monitor for frequency, burning, discomfort, or incontinence. and Nursing will obtain urine sample for urinalysis and C&S when ordered. Aspiration: Clinical staff will monitor for coughing, drooling, congestion., Speech will evaluate swallowing and dsyphasia. and Nursing will monitor patient swallowing during meals. Falls: Patient will be evaluated for Fall Precautions and Patient will be placed on Fall Precautions as indicated per protocol. Skin Breakdown: Nursing will assess skin daily using assessment tool. and Nursing will place on Skin Breakdown Precautions as indicated. Pain: Clinical staff will assess patient's pain level per protocol., Medications will be given, if needed, and the pain level reassessed. and Other methods: Massage, distraction, decrease stimulus, etc. used PRN. Plan of Care Patient requires physician specializing in physical medicine and rehab oversight to provide close medical supervision of rehab issues including: Pain Management, Sleep Problems, Bowel and Bladder, Medical and co-morbidity Management, DVT prophylaxis, Rehabilitation Leadership and Coordination of treatment team Patient needs Physical Therapy: For a minimum of 1 hour and At least 5 out of 7 days Patient needs Physical Therapy to improve:: Mobility, Strengthening, Transfers, Stretching, ROM, Endurance, Stairs, Gait and Balance Patient needs Occupational Therapy: For a minimum of 1 hour and At least 5 out of 7 days Patient needs Occupational Therapy to improve ADL's incl.: Eating, Grooming, Bathing, Dressing, Toileting, Toilet transfers, Community Reintegration, Higher functioning activities, Household tasks, Adaptive Equipment, Splinting and Other activities as determined Patient requires 24/ Rehabilitation Nursing for: Pain Issues, Identifying and preventing risk factors, Monitoring and reporting current medical conditions, Assisting with ambulation, transfer, and all ADL's, Teaching patients about disease process and medications, Family teaching, Providing safe environment, Bowel and Bladder Issues, Skin integrity and Medication Management Patient needs Brewery Technician/ Case Management for: Discharge Planning, Arranging Home Equipment or Services and Family Interventions Patient needs Dietary and Nutrition Services for: Adequate Nutrition, Nutritional Supplements and Nutritional Education Goals Goals Patient will remain: free from falls Patient will perform eating at: MOD I level of assist. Patient will perform bed mobility at: MOD I level of assist. Patient will complete transfers from bed to chair at: MOD I level of assist. Patient will ambulate: - (150 feet with least restrictive device on various surfaces) Patient will complete upper body dressing at: - (Min assist) Patient will complete lower body dressing at: - (Minimal assistance with adaptive equipment as needed for increased independence with self-care.) Patient will complete toilet transfer at: - (Min assist) Patient will complete toileting at: - (Min assist) Patient will perform bathing at: - Patient will perform Tub/Shower transfer at: - (Standby assist/min assist) Patient will complete grooming at: MOD I level of assist. Patient will achieve: - (1 step with least restrictive device at contact-guard assist to allow access to the stair lift in her home.) Patient will have pain level of: of 3 or less Patient's skin will: remain intact Patient will receive: adequate nutrition. Discharge Planning Pt Prognosis for Sig. Practical Improv. w/in Reasonable Time: Good Estimated Length of stay (days): 14 Anticipated D/C Destination: Home with Outpt Therapy Was Preadmission Assessment Accurate?: Yes
--- NOTE | 2024-02-26 10:21 | PCM.PROGNOTE ---
Subjective Subjective Afebrile VSS - Maintaining appropriate oxygen saturation on RA Oral intake - FOOD [] FLUIDS [] Discussed with nursing - no problems that need addressed Reviewed the THERAPY notes Medication list reviewed. Hemoccult stool is negative. Overnight trending pulse ox reveals multiple desaturation events. Will apply oxygen anytime she is sleeping. Recommend sleep study at discharge. Ting tells me that she did not sleep well last night despite the Ambien........she tells me that she has a lot on her mind and this was keeping her awake. Denies restless legs. Denies feeling depressed. Tells me that her pain is adequately controlled. She took only 1 oxycodone yesterday and she took 1 this morning with breakfast. She is using the ice. She denies chest pain, shortness of breath, lightheadedness, nausea/vomiting/heartburn/epigastric pain, dysuria and palpitations. She tells me that she had a colonoscopy about 2 years ago and everything was normal. Has not had an EGD. Denies any hx of PUD. Stool is heme negative. Because of the gastric bypass and the chronic PPI use she may not be able to absorb iron form the GI tract. surgeon is recommending ASA 81 mg BID for 1 month for DVT prophylaxis. He would like XRAY which will be ordered by him.....we can send a disc to him with the images. Objective Data Objective Data Vital Signs: Vital Signs Temp Pulse Resp BP Pulse Ox O2 Del Method O2 Flow Rate 98.4 F 90 18 132/66 H 98 Room Air 0 02/26/24 06:00 02/26/24 06:00 02/26/24 06:00 02/26/24 06:00 02/26/24 07:42 02/26/24 07:42 02/25/24 21:10 FiO2 21 02/25/24 21:10 Oxygen Flow Rate (L/min) 0 Oxygen Delivery Method Room Air Weight: 237 lb 7.993 oz Body Mass Index (BMI) 46.6 Intake & Output: Intake and Output for Last 24 Hours 02/24/24 02/25/24 02/26/24 23:59 23:59 23:59 Intake Total 500 / 500 1290 / 1890 1095 / 1095 Output Total 400 / 400 800 / 1250 800 / 800 Balance 100 / 100 490 / 640 295 / 295 Lab / Micro Data 02/25/24 07:03 02/25/24 07:03 Labs: Laboratory Results - last 24 hr 02/25/24 07:03: Iron 26 L, TIBC 396, Iron Saturation 6.6 L, Ferritin 94 Micro: Microbiology 02/25/24 08:09 Stool Stool Occult Blood (ALEC) - Final Physical Exam Const alert, oriented x3 and no apparent distress Constitutional Narrative: Sitting in the recliner at the bedside General Appearance: cooperative Resp normal respiratory effort Resp Narrative: Clear to auscultation anteriorly. No wheezes. Not tachypneic. No conversational dyspnea. Cardio regular rate, regular rhythm, no rub and no gallops Cardio Narrative: Very soft systolic murmur at the second right intercostal space. GI normal to inspection, nondistended, normoactive bowel sounds, soft to palpation and non-tender GI Narrative: No guarding with palpation Extremity no calf tenderness Psych mental status grossly normal, thought process normal, cooperative and affect normal Psych Narrative: Tearful today when talking about the things she has had to endure in her life.....denies feeling depressed. Was depressed in the past for a couple months right after she retired from [employer]....she felt she had lost her purpose in life. 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 (3) Constipation: QUALIFIERS: Constipation type: chronic idiopathic constipation Qualified Code(s): K59.04 - Chronic idiopathic constipation (4) Macrocytic anemia: (5) Iron deficiency: (6) Chronic kidney disease: QUALIFIERS: Chronic kidney disease stage: stage 3 (moderate) Chronic kidney disease stage 3 subtype: stage 3b (GFR 30-44) Qualified Code(s): N18.32 - Chronic kidney disease, stage 3b (7) Metabolic acidosis: (8) Lymphedema: (9) Elevated parathyroid hormone: (10) Essential (primary) hypertension: (11) (HFpEF) heart failure with preserved ejection fraction: QUALIFIERS: Heart failure chronicity: chronic Qualified Code(s): I50.32 - Chronic diastolic (congestive) heart failure (12) Diastolic dysfunction: (13) Insomnia: (14) Obstructive sleep apnea: PLAN: Plan 1. Continue therapy 2. She tolerated the iron sucrose 100 mg test dose with no adverse reactions. Will order 200 mg daily x 3 doses for a total of 700 mg of IV iron. Will start Ferrous sulfate and Ascorbic acid once daily following completion of the iron sucrose. Will need a follow up CBC and iron studies in 8-12 weeks. 3. Check a UA today to r/o hematuria as source of chronic blood loss. 4. I discussed the results of the overnight trending pulse ox with Ting. She did not like wearing the CPAP mask years ago because it was too cumbersome. We discussed the complications that can occur with untreated sleep apnea including RLS, depression, pulmonary HTN, PAF, strokes........she is willing to have a repeat sleep study. D/W sleep lab.....will try to schedula a split study for the night of DC from rehab. Will use nasal O2 at 2 L while sleeping. 5. Continue Ambien 5 mg at HS ....consider increasing to 10 mg if she still does not sleep well tonight. Charges/Coding Visit Charges Inpatient E&M: 60543 Subs Hosp L1
[2024-02-26 10:35] VITALS: RESP 16
[2024-02-26] MEDS: Sodium Ferric Gluconat/Sucrose 250 MG in 0.9% Normal Saline (250mL Bag) 250 ML 135 MG IV (11:50)
[2024-02-26] MEDS: Aspirin 81 MG TAB.CHEW PO ×2 (11:58→21:47)
--- NOTE | 2024-02-26 15:02 | CHAPLAIN ---
Type of Pastoral Visit _x__ Initial Visit ___ Follow-up Visit ___ On-call Visit ___ General Patient Visit ___ Spiritual Assessment ___ Family Conference ___ Bereavement ___ Rapid Response ___ Code Blue ___ Other (describe below) Pastoral Care Referral From _x__ Patient ___ Family ___ Nurse ___ Physician ___ Senior Treasury Analyst ___ Ekg Monitor Tech ___ Other (describe below) Sacrament/Intervention _x__ Active listening ___ Anointing ___ Judaism ___ Bereavement ___ Communion _x__ Jade exploration ___ _x__ Life review _x__ Prayer ___ Reconciliation ___ Sacrament of Sick ___ Supportive presence ___ Wedding ___ Other (describe below) Pastoral Comments good and active conversation 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
[2024-02-26] MEDS: cycloBENZAPRine HCl 10 MG Tablet PO (17:04)
[2024-02-26 17:54] VITALS: BP 110/42; PULSE 79; RESP 16; TEMP 36.7; O2SAT 96
[2024-02-26 19:26] LABS: Mucous, Urine 0 SEEN /hpf (<or=2+)
[2024-02-26 19:27] LABS: Color, Urine Yellow (Yellow); Glucose, Dipstick Normal (Normal); Ketone-Dipstick Negative (Negative); Leukocyte Esterase-Dipstick 100 /ul (Negative); Nitrite-Dipstick Negative (Negative); Occult Blood-Urine 10 /ul (Negative); Protein-Dipstick 15 mg/dl (Negative); Specific Gravity, Urine 1.015 (1.002-1.030); Urine Bilirubin Dipstick Negative (Negative); Urine Clarity Clear (Clear); Urine Urobilinogen Normal (Normal)
[2024-02-26 19:33] LABS: Red Blood Cells-Urine 0-5 SEEN /hpf (0-5); White Blood Cells 10-25 SEEN /hpf (0-5)
[2024-02-26 19:34] LABS: Bacteria 3+ /hpf (None Seen); Squamous Epithelial Cells - UA 0-5 SEEN /hpf (5-10)
[2024-02-26] MEDS: Zolpidem Tartrate 5 MG Tablet PO (21:48)
[2024-02-26] MEDS: Fluorometholone 0.1% Susp 1 DRP DROPS OPHTHALMIC (21:49)
[2024-02-26 22:00] VITALS: RESP 18
[2024-02-26 23:00] VITALS: RESP 16; O2SAT 99
[2024-02-27] MEDS: Zinc Sulfate 50 mg zinc (220 mg) ORAL capsule PO ×3 (05:03→21:25)
[2024-02-27] MEDS: oxyCODONE 5 MG Tablet PO ×3 (05:03→20:01)
[2024-02-27] MEDS: Acetaminophen 500 MG Tablet 1000 MG PO ×3 (05:03→21:24)
[2024-02-27] MEDS: Levothyroxine 125 MCG Tablet PO (05:03)
[2024-02-27 05:11] VITALS: BP 111/48; PULSE 86; RESP 16; TEMP 36.5; O2SAT 98
[2024-02-27] MEDS: 0.9% Saline Lock 10 ML Syringe IV ×3 (06:42→21:26)
[2024-02-27] MEDS: Furosemide 20 MG Tablet 60 MG PO (08:59)
[2024-02-27] MEDS: Fluorometholone 0.1% Susp 1 DRP DROPS OPHTHALMIC ×2 (08:59→21:25)
[2024-02-27] MEDS: Vitamin E 400 UNITS Capsule PO (08:59)
[2024-02-27] MEDS: Multivitamins,Therapeutic Tablet 1 TABLET PO (08:59)
[2024-02-27] MEDS: Lisinopril 10 MG Tablet PO (08:59)
[2024-02-27] MEDS: Senna/Docusate Sodium 1 Tablet 2 TABLET PO (08:59)
[2024-02-27] MEDS: Aspirin 81 MG TAB.CHEW PO ×2 (08:59→21:24)
[2024-02-27] MEDS: Calcium Carbonate 500 MG Tablet PO ×3 (08:59→17:46)
[2024-02-27] MEDS: Polyethylene Glycol 3350 17 GM PACKET PO (08:59)
[2024-02-27] MEDS: Magnesium Chloride 64 MG Delay Rel.Tablet 128 MG PO (08:59)
[2024-02-27] MEDS: Pyridoxine HCl 100 MG Tablet PO (09:00)
[2024-02-27] MEDS: Ascorbic Acid 500 MG Tablet PO (09:00)
[2024-02-27] MEDS: Vibegron 75 MG TABLET PO (09:00)
[2024-02-27] MEDS: Cholecalciferol (VIT D3) 25 MCG TABLET (1,000 UNITS) 50 MCG PO (09:00)
[2024-02-27] MEDS: Gabapentin 300 MG Capsule PO ×3 (09:05→17:46)
[2024-02-27] MEDS: Pantoprazole Sodium 20 MG Tablet PO (09:11)
[2024-02-27] MEDS: Sodium Ferric Gluconat/Sucrose 250 MG in 0.9% Normal Saline (250mL Bag) 250 ML 135 MG IV (10:48)
[2024-02-27 18:00] VITALS: BP 122/52; PULSE 76; RESP 16; TEMP 36.8; O2SAT 97
[2024-02-27] MEDS: Zolpidem Tartrate 5 MG Tablet PO (21:24)
[2024-02-27] MEDS: cycloBENZAPRine HCl 10 MG Tablet PO (21:25)
[2024-02-27] MEDS: Petrolatum 33% Tube 1 APPLIC TOPICAL (21:55)
[2024-02-28] MEDS: oxyCODONE 5 MG Tablet PO ×3 (02:30→18:03)
[2024-02-28 06:00] VITALS: BP 106/58; PULSE 74; RESP 16; TEMP 36.6; O2SAT 94
[2024-02-28] MEDS: Zinc Sulfate 50 mg zinc (220 mg) ORAL capsule PO ×3 (06:05→23:05)
[2024-02-28] MEDS: Acetaminophen 500 MG Tablet 1000 MG PO ×3 (06:05→23:05)
[2024-02-28] MEDS: Levothyroxine 125 MCG Tablet PO (06:05)
[2024-02-28] MEDS: cycloBENZAPRine HCl 10 MG Tablet PO (06:05)
[2024-02-28] MEDS: Gabapentin 300 MG Capsule PO ×3 (08:17→18:00)
[2024-02-28] MEDS: Lisinopril 10 MG Tablet PO (08:18)
[2024-02-28] MEDS: Multivitamins,Therapeutic Tablet 1 TABLET PO (08:18)
[2024-02-28] MEDS: Furosemide 20 MG Tablet 60 MG PO (08:18)
[2024-02-28] MEDS: Polyethylene Glycol 3350 17 GM PACKET PO (08:18)
[2024-02-28] MEDS: Calcium Carbonate 500 MG Tablet PO ×3 (08:18→18:00)
[2024-02-28] MEDS: Magnesium Chloride 64 MG Delay Rel.Tablet 128 MG PO (08:18)
[2024-02-28] MEDS: Senna/Docusate Sodium 1 Tablet 2 TABLET PO ×2 (08:18→23:04)
[2024-02-28] MEDS: Aspirin 81 MG TAB.CHEW PO ×2 (08:19→23:04)
[2024-02-28] MEDS: Vibegron 75 MG TABLET PO (08:19)
[2024-02-28] MEDS: Ascorbic Acid 500 MG Tablet PO (08:19)
[2024-02-28] MEDS: Cholecalciferol (VIT D3) 25 MCG TABLET (1,000 UNITS) 50 MCG PO (08:19)
[2024-02-28] MEDS: Pantoprazole Sodium 20 MG Tablet PO (08:19)
[2024-02-28] MEDS: Pyridoxine HCl 100 MG Tablet PO (08:19)
[2024-02-28] MEDS: Fluorometholone 0.1% Susp 1 DRP DROPS OPHTHALMIC ×2 (08:19→20:49)
[2024-02-28] MEDS: Vitamin E 400 UNITS Capsule PO (08:19)
[2024-02-28] MEDS: Sodium Ferric Gluconat/Sucrose 250 MG in 0.9% Normal Saline (250mL Bag) 250 ML 135 MG IV (10:04)
[2024-02-28] MEDS: 0.9% Saline Lock 10 ML Syringe IV ×2 (10:04→20:51)
[2024-02-28 18:00] VITALS: BP 103/48; PULSE 88; RESP 16; TEMP 36.9; O2SAT 98
[2024-02-28] MEDS: Petrolatum 33% Tube 1 APPLIC TOPICAL (20:44)
[2024-02-28] MEDS: Hydrocortisone 2.5% Ointment 20 gm tube 1 APPLIC TOPICAL (21:33)
[2024-02-28] MEDS: Zolpidem Tartrate 5 MG Tablet PO (23:04)
[2024-02-29 06:30] VITALS: BP 109/44; PULSE 74; RESP 16; TEMP 36.6; O2SAT 96
[2024-02-29] MEDS: oxyCODONE 5 MG Tablet PO ×3 (06:31→18:52)
[2024-02-29] MEDS: Zinc Sulfate 50 mg zinc (220 mg) ORAL capsule PO ×3 (06:31→21:05)
[2024-02-29] MEDS: Levothyroxine 125 MCG Tablet PO (06:31)
[2024-02-29] MEDS: Acetaminophen 500 MG Tablet 1000 MG PO ×3 (06:31→21:04)
--- NOTE | 2024-02-29 08:54 | PN_ITS ---
Subjective Subjective Ting was seen on team rounds today no family was available to participate. Afebrile VSS - Maintaining appropriate oxygen saturation on RA Oral intake - FOOD good FLUIDS good Discussed with nursing - no problems that need addressed Reviewed the THERAPY notes Medication list reviewed. Has been taking 3 doses of Oxycodone 5 mg daily for the past couple days. UA on Thursday showed 10-25 white blood cells and 3+ bacteria. 0-5 RBCs. Pt denies dysuria and is AF with no sweats or chills, no flank pain and no N/V./mental status changes. Objective Data Objective Data Vital Signs: Vital Signs Temp Pulse Resp BP Pulse Ox O2 Del Method O2 Flow Rate 97.8 F 74 16 109/44 L 96 Room Air 2 02/29/24 06:30 02/29/24 06:30 02/29/24 06:30 02/29/24 06:30 02/29/24 06:30 02/29/24 06:30 02/26/24 23:00 FiO2 21 02/25/24 21:10 Oxygen Flow Rate (L/min) 2 Oxygen Delivery Method Room Air Weight: 237 lb 7.993 oz Body Mass Index (BMI) 46.6 Intake & Output: Intake and Output for Last 24 Hours 02/27/24 02/28/24 02/29/24 23:59 23:59 23:59 Intake Total 1440 / 1540 1500 / 1500 400 / 400 Output Total 1250 / 1250 1150 / 1150 Balance 190 / 290 350 / 350 400 / 400 Lab / Micro Data 02/25/24 07:03 02/25/24 07:03 Micro: Microbiology 02/25/24 08:09 Stool Stool Occult Blood (ALEC) - Final Physical Exam Const alert, oriented x3 and no apparent distress General Appearance: cooperative Resp clear to auscultation bilaterally Cardio regular rate and regular rhythm GI normal to inspection, nondistended, normoactive bowel sounds, soft to palpation and non-tender Extremity Extremity Narrative: The left upper extremity has a reddened macular area proximal to the Hep-Lock that is itchy. Hydrocortisone cream was effective in relieving the itch. Will discontinue the Hep-Lock. Skin Wound Narrative: The left shoulder incision is intact with no dehiscence, no purulent discharge and no kailey-incisional erythema. Intact sensation in the hand. 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 (3) Constipation: QUALIFIERS: Constipation type: chronic idiopathic constipation Q ualified Code(s): K59.04 - Chronic idiopathic constipation (4) Macrocytic anemia: (5) Iron deficiency: (6) Chronic kidney disease: QUALIFIERS: Chronic kidney disease stage: stage 3 (moderate) C hronic kidney disease stage 3 subtype: stage 3b (GFR 30-44) Qualified Code(s): N18.32 - Chronic kidney disease, stage 3b (7) Metabolic acidosis: (8) Lymphedema: (9) Elevated parathyroid hormone: (10) Essential (primary) hypertension: (11) (HFpEF) heart failure with preserved ejection fraction: QUALIFIERS: Heart failure chronicity: chronic Qualified Code(s): I50.32 - Chronic diastolic (congestive) heart failure (12) Diastolic dysfunction: (13) Insomnia: (14) Obstructive sleep apnea: PLAN: Plan 1. Continue therapy 2. She has asymptomatic bacteriuria and there is no indication to treat with attics at this time. 3. Discussed the results of the TSH/T4 with endocrinology. TSH is near the lower limit of normal and the T4 is elevated. She has insomnia and nocturia....potentially related to increased T4. Will change the dose to 125 mcg 6 days a week and a 1/2 tab on Thursday. Should have repeat TSH in 6 weeks. Would like to see the TSH around 2 since she is > 72 YOA. If she has not had a recent DEXA would recommend a bone mineral density study post DC. 4. Start ferrous sulfate + ascorbic acid once daily. Recheck iron studies in 6-12 weeks. Charges/Coding Visit Charges Inpatient E&M: 95182 Subs Hosp L2
[2024-02-29] MEDS: Calcium Carbonate 500 MG Tablet PO ×3 (09:02→16:50)
[2024-02-29] MEDS: Gabapentin 300 MG Capsule PO ×3 (09:02→16:50)
[2024-02-29] MEDS: Lisinopril 10 MG Tablet PO (09:03)
[2024-02-29] MEDS: Pantoprazole Sodium 20 MG Tablet PO (09:03)
[2024-02-29] MEDS: Vitamin E 400 UNITS Capsule PO (09:03)
[2024-02-29] MEDS: Furosemide 20 MG Tablet 60 MG PO (09:03)
[2024-02-29] MEDS: Aspirin 81 MG TAB.CHEW PO ×2 (09:03→21:04)
[2024-02-29] MEDS: Multivitamins,Therapeutic Tablet 1 TABLET PO (09:03)
[2024-02-29] MEDS: Ascorbic Acid 500 MG Tablet PO (09:03)
[2024-02-29] MEDS: Magnesium Chloride 64 MG Delay Rel.Tablet 128 MG PO (09:03)
[2024-02-29] MEDS: Cholecalciferol (VIT D3) 25 MCG TABLET (1,000 UNITS) 50 MCG PO (09:04)
[2024-02-29] MEDS: Pyridoxine HCl 100 MG Tablet PO (09:04)
[2024-02-29] MEDS: Vibegron 75 MG TABLET PO (09:04)
[2024-02-29] MEDS: Fluorometholone 0.1% Susp 1 DRP DROPS OPHTHALMIC ×2 (09:04→21:06)
[2024-02-29] MEDS: 0.9% Saline Lock 10 ML Syringe IV (09:11)
--- NOTE | 2024-02-29 13:03 | CASEMGMT ---
Social Work IDT met with patient for Team meeting. Discussed patient's progress in PT/OT/SN. Educated to Medicare approval of 9 days with EDC 03/04. Pt is progressing well and requesting to DC for Thanksgiving. agreeable to DC home on 03/03 morning. Pt agreed. SAMIR offered HHC vs OP. Pt prefers [facility]. No DME needs. Pt has transportation home and to appts. No other needs noted. SAMIR faxed referral to [facility]. Plan: DC home alone 03/03, [facility] Yahaira Meeks, ACCOUNTS PAYABLE ACCOUNTANT RESIDENTIAL LIFE DIRECTOR
--- NOTE | 2024-02-29 15:49 | VDUE_ITS ---
Reason For Study: LUE SWELLING, REDNESS, PAIN Right Lower Arm Left Proximal Right radial vein is compressible. Left jugular vein is spontaneous, widely Right ulnar vein is compressible. patent, phasic, with no intraluminal Right Arm echogenicity noted. Right axillary vein is spontaneous, patent, Left subclavian vein is spontaneous, widely phasic, competent, compressible and patent, phasic, with no intraluminal demonstrates augmentation. echogenicity noted. Right brachial vein is compressible. Right cephalic vein is compressible. Right basilic vein is compressible. Patient Safety Preliminary report given to Dr. Mehta at conclusion of exam. VL/Venous Duplex US, Unilateral Interpretation Summary Deep veins of the right upper extremity are patent and compressible segmentally . There is no evidence of deep vein thrombosis. Superficial veins of the right upper extremity are patent and compressible segm entally. There is no evidence of superficial vein thrombosis. Technically difficult study due to recent left shoulder surgery, mobility was l imited. Ordering Physician: Ting Mehta Referring Physician: Miryam Wells Performed By: Bhavana Wiley, RDCS, RVT ???
[2024-02-29 16:25] LABS: Absolute Lymphocyte Count 1.21 X10^3/uL (0.83-4.51); Absolute Neutrophil Count 5.7 X10^3/uL (2.0-7.7); Basophil# 0.04 X10^3/uL; Basophil% 0.5 % (0-1); Eosinophil# 0.58 X10^3/uL; Eosinophils% 7.1 % (0-5); Hemoglobin 10.3 g/dL (12.0-15.0); Lymphocyte # 1.21 X10^3/ul (0.83-4.51); Lymphocyte % 14.9 % (19-41); Mean Corp Hgb Conc 29.4 g/dL (32-36); Mean Corpuscular Hgb 32.3 pg (27.0-32.0); Mean Corpuscular Volume 109.7 fL (81-99); Mean Platelet Vol. 12.3 fl (6.2-12.0); Monocyte# 0.54 X10^3/uL; Monocyte% 6.6 % (0-10); NRBC Flagged by Analyzer 0 % (0-5); Platelet Count 255 K/mm3 (150-450); RBC Distribution Width CV 13.4 % (11.6-14.6); RBC Distribution Width SD 54.3 fl (35.1-43.9); Red Blood Count 3.19 M/mm3 (4.2-5.4); White Blood Count 8.1 K/mm3 (4.4-11.0)
[2024-02-29 16:26] LABS: POSITIVE COUNT NO; POSITIVE DIFFERENTIAL NO; POSITIVE MORPHOLOGY NO
[2024-02-29 18:00] VITALS: BP 131/45; PULSE 75; RESP 17; TEMP 36.7; O2SAT 98
[2024-02-29] MEDS: Senna/Docusate Sodium 1 Tablet 2 TABLET PO (21:04)
[2024-02-29] MEDS: Doxycycline 100 MG CAPSULE PO (21:04)
[2024-02-29] MEDS: Petrolatum 33% Tube 1 APPLIC TOPICAL (21:06)
[2024-02-29] MEDS: Zolpidem Tartrate 5 MG Tablet PO (22:46)
[2024-03-01] MEDS: oxyCODONE 5 MG Tablet PO ×4 (01:40→22:10)
[2024-03-01] MEDS: Zinc Sulfate 50 mg zinc (220 mg) ORAL capsule PO ×3 (05:58→22:10)
[2024-03-01] MEDS: Levothyroxine 125 MCG Tablet 62.5 MCG PO (05:59)
[2024-03-01] MEDS: Acetaminophen 500 MG Tablet 1000 MG PO (05:59)
[2024-03-01 06:00] VITALS: BP 146/80; PULSE 72; RESP 20; O2SAT 98
[2024-03-01 06:55] VITALS: TEMP 37.1
[2024-03-01] MEDS: Gabapentin 300 MG Capsule PO ×3 (07:22→17:44)
[2024-03-01] MEDS: Calcium Carbonate 500 MG Tablet PO ×3 (07:22→17:44)
[2024-03-01] MEDS: Fluorometholone 0.1% Susp 1 DRP DROPS OPHTHALMIC ×2 (07:22→22:11)
[2024-03-01] MEDS: Vibegron 75 MG TABLET PO (07:23)
[2024-03-01] MEDS: Senna/Docusate Sodium 1 Tablet 2 TABLET PO (07:23)
[2024-03-01] MEDS: Cholecalciferol (VIT D3) 25 MCG TABLET (1,000 UNITS) 50 MCG PO (07:23)
[2024-03-01] MEDS: Doxycycline 100 MG CAPSULE PO ×2 (07:23→22:10)
[2024-03-01] MEDS: Polyethylene Glycol 3350 17 GM PACKET PO (07:23)
[2024-03-01] MEDS: Multivitamins,Therapeutic Tablet 1 TABLET PO (07:23)
[2024-03-01] MEDS: Pantoprazole Sodium 20 MG Tablet PO (07:23)
[2024-03-01] MEDS: Lisinopril 10 MG Tablet PO (07:23)
[2024-03-01] MEDS: Furosemide 20 MG Tablet 60 MG PO (07:24)
[2024-03-01] MEDS: Vitamin E 400 UNITS Capsule PO (07:24)
[2024-03-01] MEDS: Magnesium Chloride 64 MG Delay Rel.Tablet 128 MG PO (07:24)
[2024-03-01] MEDS: Pyridoxine HCl 100 MG Tablet PO (07:24)
[2024-03-01] MEDS: Aspirin 81 MG TAB.CHEW PO ×2 (07:25→22:10)
--- NOTE | 2024-03-01 08:11 | PCM.PROGNOTE ---
Subjective Subjective Day #2 doxycycline Afebrile VSS - Maintaining appropriate oxygen saturation on RA Oral intake - FOOD good FLUIDS good Discussed with nursing - no problems that need addressed Reviewed the THERAPY notes Medication list reviewed. Venous ultrasound is negative for VTE. White blood cell count is within normal limits. Eosinophils today are high at 7.1%, up from 5.8% on 02/25/2024. The absolute eosinophil count is 575. She is afebrile but is getting Tylenol for pain control. Ting is c/o pain in the LUE........in the triceps area and the forearm. the redness is regressing. She continues to have pruritus but, this is controlled with hydrocortisone cream. Denies lightheadedness, chest pain, shortness of breath, cough, nausea/vomiting, dysuria and calf pain. Sleeping pretty well at night. Objective Data Objective Data Vital Signs: Vital Signs Temp Pulse Resp BP Pulse Ox O2 Del Method O2 Flow Rate 98.8 F 72 20 H 146/80 H 98 Room Air 2 03/01/24 06:55 03/01/24 06:00 03/01/24 06:00 03/01/24 06:00 03/01/24 06:00 03/01/24 06:00 02/26/24 23:00 FiO2 21 02/25/24 21:10 Oxygen Flow Rate (L/min) 2 Oxygen Delivery Method Room Air Weight: 237 lb 7.993 oz Body Mass Index (BMI) 46.6 Intake & Output: Intake and Output for Last 24 Hours 02/28/24 02/29/24 03/01/24 23:59 23:59 23:59 Intake Total 1500 / 1500 1300 / 1300 150 / 150 Output Total 1150 / 1150 700 / 700 Balance 350 / 350 600 / 600 150 / 150 Lab / Micro Data 02/29/24 16:12 02/25/24 07:03 Labs: Laboratory Results - last 24 hr 02/29/24 16:12: WBC 8.1, RBC 3.19 L, Hgb 10.3 L, Hct 35.0 L, MCV 109.7 H, MCH 32.3 H, MCHC 29.4 L, RDW Std Deviation 54.3 H, RDW Coeff of Parris 13.4, Plt Count 255, MPV 12.3 H, Immature Gran % (Auto) 0.900, Neut % (Auto) 70.0, Lymph % (Auto) 14.9 L, Tyler % (Auto) 6.6, Eos % (Auto) 7.1 H, Baso % (Auto) 0.5, Absolute Neuts (auto) 5.7, Absolute Lymphs (auto) 1.21, Nucleated RBC % 0 Micro: Microbiology 02/25/24 08:09 Stool Stool Occult Blood (ALEC) - Final Physical Exam Const alert and no apparent distress Constitutional Narrative: Sitting in the recliner at the bedside General Appearance: cooperative HEENT hearing grossly normal bilaterally Eyes PERRL, EOMs intact bilaterally, conjunctivae normal and no scleral icterus Eyes Narrative: No discharge from the eyes. Neck supple, No nodes and no carotid bruits General: trachea midline Chest Chest: symmetrical chest wall rise Resp clear to auscultation bilaterally Resp Narrative: Clear to auscultation anteriorly. No wheezes. Not tachypneic. No conversational dyspnea. Cardio regular rate and regular rhythm Cardio Narrative: Very soft systolic murmur at the second right intercostal space. GI normal to inspection, nondistended, normoactive bowel sounds, soft to palpation and non-tender GI Narrative: Last BM was last night. Having regular bowel movements. No guarding with palpation. Extremity no calf tenderness Extremity Narrative: The Left shoulder has no erythema and there is no significant swelling around the incision. The incision is intact with no dehiscence and no DC. there is resolving ecchymosis over the triceps but no erythema. The redness in the forearm is less today. No hives and no vesicles. HL was removed yesterday. No fluctuance or DC at the site of the HL. Skin no jaundice Skin Narrative: No rashes. Dry skin. Wound Narrative: The left shoulder incision is intact with no dehiscence, no purulent discharge and no kailey-incisional erythema. Intact sensation in the hand. Neuro oriented x3, CN's II-XII intact bilaterally and moves all extremities Psych mental status grossly normal, thought process normal, cooperative and affect normal Psych Narrative: Tearful today when talking about the things she has had to endure in her life.....denies feeling depressed. Was depressed in the past for a couple months right after she retired from [employer]....she felt she had lost her purpose in life. 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 (3) Constipation: QUALIFIERS: Constipation type: chronic idiopathic constipation Qualified Code(s): K59.04 - Chronic idiopathic constipation (4) Macrocytic anemia: (5) Iron deficiency: (6) Chronic kidney disease: QUALIFIERS: Chronic kidney disease stage: stage 3 (moderate) Chronic kidney disease stage 3 subtype: stage 3b (GFR 30-44) Qualified Code(s): N18.32 - Chronic kidney disease, stage 3b (7) Metabolic acidosis: (8) Lymphedema: (9) Elevated parathyroid hormone: (10) Essential (primary) hypertension: (11) (HFpEF) heart failure with preserved ejection fraction: QUALIFIERS: Heart failure chronicity: chronic Qualified Code(s): I50.32 - Chronic diastolic (congestive) heart failure (12) Diastolic dysfunction: (13) Insomnia: (14) Obstructive sleep apnea: (15) Adverse drug reaction: QUALIFIERS: Encounter type: initial encounter Qualified Code(s): T50.905A - Adverse effect of unspecified drugs, medicaments and biological substances, initial encounter PLAN: I suspect she has had an adverse rx to the iron sucrose. Limb pain and pruritus are known adverse reactions to this drug. White blood cell count is within normal limits and there is no left shift. She has been afebrile. The surgical site is free of erythema, discharge or increased warmth to touch around the incision. (16) Cellulitis: QUALIFIERS: Site of cellulitis: extremity Site of cellulitis of extremity: upper extremity Laterality: left Qualified Code(s): L03.114 - Cellulitis of left upper limb PLAN: I think the limb pain and pruritus are more than likely due to adverse drug reaction to iron sucrose but, with the recent L shoulder surgery I do not want to miss an infection. Will continue Doxy for 7 days total. PLAN: Plan 1. Continue therapy 2. Continue doxycycline for total of 7 days 3. Plan discharge to home morning. 4. Hold Tylenol so that we are not suppressing a fever with Tylenol. 5. I suspect the pain, pruritus of the LUE is due to a combination of reaction to the iron sucrose and Possibly cellulitis. Continue hydrocortisone cream as needed. Add Claritin 10 mg daily to the drug regimen for the next 3 days. Charges/Coding Visit Charges Inpatient E&M: 98412 Subs Hosp L1
[2024-03-01] MEDS: Loratadine 10 MG Tablet PO (11:49)
[2024-03-01] MEDS: Ferrous Sulfate 325 MG Tablet PO (11:49)
[2024-03-01] MEDS: Ascorbic Acid 500 MG Tablet 1000 MG PO (11:50)
[2024-03-01 18:00] VITALS: BP 136/78; PULSE 70; RESP 17; TEMP 36.6; O2SAT 97
--- NOTE | 2024-03-01 18:16 | DCINST_ITS ---
Discharge Instructions Diet Discharge Diet: - (Low fat, low salt diet) DC O2, CPAP, BIPAP needs PSN CPAP & BiPAP: BiPAP & CPAP Settings per PSN Fraction of Inspired Oxygen ( 02/25/24 21:10 FIO2) Additional Home O2 Discharge instructions: No Dressing / Incision Discharge Activity: May Not Drive, May Shower and - (use a walker or a cane for ambulation. A cane for short distances and a walker for longer distances. ) Weight Bearing Status: Full weight bearing Lifting Restrictions: no weight bering or lifting with the L arm. Keep the Left arm in the sling Keep extremity elevated above heart level: Left Arm and Legs Dressing / Incision Call your doctor if your incision/area has: Continuous Slow Oozing, Sudden Increased Bleeding, Increased Pain/ Swelling, Increased Redness, Foul Smelling Discharge and Swelling at the incision site Call your doctor if you observe: Fever of 101 or Higher, Numbness or Tingling (in the left arm), Inability to urinate, Shortness of breath, Dizziness, Fainting spells, Chest pain, Increased palpitations (irregular heartbeat), Calf discomfort and Uncontrolled pain Suture Line Care: Avoid Pulling/Pushing, Avoid Pinching/Bending and - (Leave the steri strips on until they fall off by themselves. NO dressing is needed unless you would be more comfortable with a dressing over the incision. OK to cover with a clean dry dressing. ) Cleanse incision/area with: Do not get Incision Wet (You can shower but, do not soak the incision and dry thoroughly immediately after showering. ) Follow Up Care When: Appts have been scheduled for Miryam Cifuentes NP, Dr. Castañeda and the sleep lab. they are listed later on in this document. Dr. Cowart's office will call you to schedule an appt to be seen for hypothyroidism, hyperparathyroidism and osteoporosis. Test Results: Test results from this visit will be discussed in further detail at your follow- up appointment, if applicable. 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 I think the pain and the redness in the left arm were related to the IV iron. BUT, I can not r/o cellulitis. It is getting better and I am going to keep you on the antibiotic, Doxycycline, for a total of 7 days. You did not have a blood clot in the Left arm. The incision looks great and there is no sign of infection. 2. You were VERY iron deficient. We gave you IV iron (a total or 700 mg) and you have been started on an oral iron supplement. Some people do not absorb iron well from the gastrointestinal tract. In order for your body to absorb iron into your system from the gastrointestinal tract you need to have acid present in the stomach. You take a medication for reflux/heartburn that suppresses acid secretion in the stomach. Sometimes if you take the iron supplement with ascorbic acid (vitamin C) it will improve absorption. Iron should always be taken with a meal because eating stimulates the stomach to release gastric acid to digest the food. Take the iron with the Vitamin C with 1 meal every day. you can pick the meal. 3. Your stool had no blood in it. 4. I am giving you a requisition to have a bone mineral density study done....this is also called a DEXA. I am also referring you to an crew leader gluing, Dr. Anuj Cowart, for hypothyroidism, secondary Hyperparathyroidism and for treatment of osteoporosis. 5. I change the thyroid dosing. You were getting a little bit too much thyroid medication. At your age your TSH should not be less than 1 and it is OK if it is a little high. Your TSH was only 0.44 and the T4 was high. you will now be taking 1 tab every day except Thursday. On Thursday you will take only 1/2 tab. An overactive thyroid can cause nocturia and insomnia. You have both. Sleep apnea can also lead to disturbances in sleep, frequent awakening and trouble falling asleep. You still have sleep apnea. You are scheduled for the sleep study on Thursday evening and then you will follow up with the pulmonary dept at the hospital here. You oxygen dropped several times throughout the night on the overnight trending pulse ox and it stayed low for a minute or more. When the oxygen drops and stays down you get decreased oxygen to the heart and it can cause problems with the rhythm of the Heart, specifically atrial fibrillation which increases the risk for strokes. I am giving you a handout on sleep apnea. Please read it. 6. The skin on your legs is very dry because they are chronically swollen. When the skin is dry it makes little cracks and the cracks can let in the bacteria that normally lives on your skin. This can cause cellulitis which is an infection of the skin and subcutaneous tissue. You should be moisturizing your legs from the toes to the knees every night before bed. I recommend Eucerin Intensive repair.......it is a very good moisturizer. It is available at [employer] and any drug store over the counter. Wear the lymphedema pump twice daily to help control the edema. 7. Your PCP should be checking your iron studies in 6-12 weeks to make sure the iron is adequate now. 8. It has been a pleasure getting to know you Ting. You have done a great deal for other less fortunate people in your life and I admire that. If you have any questions after leaving rehab please do not hesitate to call me. OFFICE: [phone] CELL: [phone] NURSES [facility]: [phone] I decreased the Ambien to 5 mg at bedtime.........this drug can be associated with drowsiness, dizziness and increased falls. It is easy to lose your balance at night when getting up to use the restroom and your balance is off now because the Left arm is in a sling. Gabapentin can also cause the same problems and so can narcotics and muscle relaxers. I would try and minimize use of these drugs as much as possible. Discharge Orders/Prescriptions Prescriptions: New ascorbic acid (vitamin C) 500 mg Tablet 1,000 mg PO DAILYCM@1200 Qty: 60 0RF Rx Instructions: Take this with the iron supplement at lunch daily aspirin 81 mg Tablet,Chewable 81 mg PO BID Qty: 38 0RF Rx Instructions: Take 1 twice a day with food until gone.....for prevention of blood clots. calcium carbonate 200 mg calcium (500 mg) Tablet,Chewable 500 mg PO TIDCM Qty: 90 0RF doxycycline monohydrate 100 mg Capsule 100 mg PO BID Qty: 10 0RF ferrous sulfate [FeroSul] 325 mg (65 mg iron) Tablet 325 mg PO DAILY@1200 Qty: 30 0RF Rx Instructions: Take this with vitamin C at Lunch every day hydrocortisone 2.5 % Ointment 1 applic topical BID PRN PRN (Reason: RASH/TOPICAL IRRITATION) Qty: 1 0RF Protocol: *Topical Application Instructions APPLICATION INSTRUCTIONS: apply to areas of itching oxycodone 5 mg Tablet 5 mg PO Q4H PRN PRN (Reason: pain 1-10) 7 Days Qty: 35 0RF sennosides-docusate sodium [Stimulant Laxative Plus] 8.6-50 mg Tablet 2 tab PO BID Qty: 120 0RF zolpidem 5 mg Tablet 5 mg PO QHS Qty: 30 0RF Continued [id number] 500-400-667 mg-mg-unit capsule 1 cap PO TID hydrocortisone-pramoxine 2.5-1 % (4g) cream 1 applic RC BID cholecalciferol (vitamin D3) 25 mcg (1,000 unit) capsule 50 mcg PO DAILY vitamin E mixed 400 unit capsule 400 unit PO DAILY Mirena 20 mcg/24 hours (7 yrs) 52 mg intrauterine device 1 mcg intrauterine ONCE pyridoxine (vitamin B6) [Vitamin B-6] 100 mg tablet 100 mg PO DAILY acetaminophen 500 mg tablet 1,000 mg PO Q8H multivitamin Tablet 1 tab PO DAILY gabapentin 300 mg capsule 300 mg PO TID Patient Comments: TAKE ONE PILL BY MOUTH 3 TIMES PER DAY magnesium oxide 200 mg magnesium tablet 200 mg PO DAILY nitroglycerin 0.4 mg tablet, sublingual 0.4 mg sublingual Q5M PRN (Reason: chest pain) Qty: 30 1RF Rx Instructions: do not exceed 3 doses per episode omeprazole 20 MG capsule 20 mg PO DAILY zinc acetate 25 mg (zinc) capsule 50 mg PO TID fluorometholone 0.1 % drops,suspension 1 drp ophthalmic (eye) BID furosemide 20 mg tablet 60 mg PO DAILY cyclobenzaprine 10 mg tablet 10 mg PO TID PRN (Reason: Muscle Spasm) Qty: 30 0RF levothyroxine 125 mcg tablet 125 mcg PO DAILY Qty: 30 0RF Patient Comments: TAKE 1 TABLET BY MOUTH ONCE DAILY. TAKE ON EMPTY STOMACH. FOR THYROID. Rx Instructions: Take 1 tab daily except on Tuesdays take only 1/2 tab. Take on empty stomach Gemtesa 75 mg tablet 75 mg PO DAILY Patient Comments: TAKE 1 TABLET BY MOUTH EVERY DAY lisinopril 10 mg tablet 10 mg PO DAILY polyethylene glycol 3350 17 gram Powder In Packet 17 g PO DAILY Qty: 30 0RF Discontinued ascorbate calcium (vitamin C) 500 mg tablet 500 mg PO DAILY zolpidem 10 mg tablet 10 mg PO QHS oxycodone 5 mg tablet 5 mg PO Q6H PRN (Reason: pain) calcium carbonate [Calcium 500] 500 mg calcium (1,250 mg) tablet,chewable 500 mg PO BID melatonin 3 mg capsule 1.5 mg PO QHS PRN (Reason: insomnia) Other Ambulatory Orders: Dexa Bone Density Study (Routine) Timeframe: 3 Weeks Facility: [facility] - Location: [facility] Ordered By: Dr. Ting Mehta Referrals / Follow Up: Klaus Castañeda [Other] - 03/09/24 2:30 pm () sleep, study [Other] - 03/04/24 8:00 pm Miryam Wells NP-C [Primary Care Provider] - 03/10/24 12:40 pm Anuj Cowart MD [Med Staff - Courtesy Staff] - (Thyroid and Parathyroid Referral faxed to office. Office will call you to make appt. If you do not hear from them in 1 week call them. ) Disposition Disposition (needs filled in before D/C Order can be placed): Home, Self Care
[2024-03-01] MEDS: cycloBENZAPRine HCl 10 MG Tablet PO (22:10)
[2024-03-01] MEDS: Zolpidem Tartrate 5 MG Tablet PO (22:10)
[2024-03-01] MEDS: Petrolatum 33% Tube 1 APPLIC TOPICAL (22:16)
[2024-03-02 06:00] VITALS: BP 115/55; PULSE 78; RESP 16; TEMP 36.6; O2SAT 95; BMI 46.8
[2024-03-02] MEDS: Zinc Sulfate 50 mg zinc (220 mg) ORAL capsule PO ×3 (06:03→20:41)
[2024-03-02] MEDS: Levothyroxine 125 MCG Tablet PO (06:03)
[2024-03-02] MEDS: oxyCODONE 5 MG Tablet PO ×4 (06:03→20:33)
[2024-03-02] MEDS: Gabapentin 300 MG Capsule PO ×3 (08:04→16:42)
[2024-03-02] MEDS: Furosemide 20 MG Tablet 60 MG PO (08:05)
[2024-03-02] MEDS: Doxycycline 100 MG CAPSULE PO ×2 (08:06→20:40)
[2024-03-02] MEDS: Fluorometholone 0.1% Susp 1 DRP DROPS OPHTHALMIC ×2 (08:06→20:39)
[2024-03-02] MEDS: Lisinopril 10 MG Tablet PO (08:07)
[2024-03-02] MEDS: Magnesium Chloride 64 MG Delay Rel.Tablet 128 MG PO (08:08)
[2024-03-02] MEDS: Pantoprazole Sodium 20 MG Tablet PO (08:08)
[2024-03-02] MEDS: Calcium Carbonate 500 MG Tablet PO ×3 (08:08→16:43)
[2024-03-02] MEDS: Aspirin 81 MG TAB.CHEW PO ×2 (08:09→20:40)
[2024-03-02] MEDS: Vitamin E 400 UNITS Capsule PO (08:09)
[2024-03-02] MEDS: Polyethylene Glycol 3350 17 GM PACKET PO (08:09)
[2024-03-02] MEDS: Multivitamins,Therapeutic Tablet 1 TABLET PO (08:09)
[2024-03-02] MEDS: Loratadine 10 MG Tablet PO (08:09)
[2024-03-02] MEDS: Pyridoxine HCl 100 MG Tablet PO (08:09)
[2024-03-02] MEDS: Senna/Docusate Sodium 1 Tablet 2 TABLET PO (08:10)
[2024-03-02] MEDS: Cholecalciferol (VIT D3) 25 MCG TABLET (1,000 UNITS) 50 MCG PO (08:10)
[2024-03-02] MEDS: Vibegron 75 MG TABLET PO (08:11)
[2024-03-02] MEDS: Ascorbic Acid 500 MG Tablet 1000 MG PO (12:01)
[2024-03-02] MEDS: Ferrous Sulfate 325 MG Tablet PO (12:01)
--- NOTE | 2024-03-02 13:01 | PCM.DC.SUM ---
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 8.6-50 mg Tablet 2 tab PO BID Qty: 120 0RF zolpidem 5 mg Tablet 5 mg PO QHS Qty: 30 0RF Continued oxpx-hrntof-xtrelmem-D3-C-Mn 500-400-667 mg-mg-unit capsule 1 cap PO TID hydrocortisone-pramoxine 2.5-1 % (4g) cream 1 applic RC BID cholecalciferol (vitamin D3) 25 mcg (1,000 unit) capsule 50 mcg PO DAILY vitamin E mixed 400 unit capsule 400 unit PO DAILY Mirena 20 mcg/24 hours (7 yrs) 52 mg intrauterine device 1 mcg intrauterine ONCE pyridoxine (vitamin B6) [Vitamin B-6] 100 mg tablet 100 mg PO DAILY acetaminophen 500 mg tablet 1,000 mg PO Q8H multivitamin Tablet 1 tab PO DAILY gabapentin 300 mg capsule 300 mg PO TID Patient Comments: TAKE ONE PILL BY MOUTH 3 TIMES PER DAY magnesium oxide 200 mg magnesium tablet 200 mg PO DAILY nitroglycerin 0.4 mg tablet, sublingual 0.4 mg sublingual Q5M PRN (Reason: chest pain) Qty: 30 1RF Rx Instructions: do not exceed 3 doses per episode omeprazole 20 MG capsule 20 mg PO DAILY zinc acetate 25 mg (zinc) capsule 50 mg PO TID fluorometholone 0.1 % drops,suspension 1 drp ophthalmic (eye) BID furosemide 20 mg tablet 60 mg PO DAILY cyclobenzaprine 10 mg tablet 10 mg PO TID PRN (Reason: Muscle Spasm) Qty: 30 0RF levothyroxine 125 mcg tablet 125 mcg PO DAILY Qty: 30 0RF Patient Comments: TAKE 1 TABLET BY MOUTH ONCE DAILY. TAKE ON EMPTY STOMACH. FOR THYROID. Rx Instructions: Take 1 tab daily except on Tuesdays take only 1/2 tab. Take on empty stomach Gemtesa 75 mg tablet 75 mg PO DAILY Patient Comments: TAKE 1 TABLET BY MOUTH EVERY DAY lisinopril 10 mg tablet 10 mg PO DAILY polyethylene glycol 3350 17 gram Powder In Packet 17 g PO DAILY Qty: 30 0RF Discontinued ascorbate calcium (vitamin C) 500 mg tablet 500 mg PO DAILY zolpidem 10 mg tablet 10 mg PO QHS oxycodone 5 mg tablet 5 mg PO Q6H PRN (Reason: pain) calcium carbonate [Calcium 500] 500 mg calcium (1,250 mg) tablet,chewable 500 mg PO BID melatonin 3 mg capsule 1.5 mg PO QHS PRN (Reason: insomnia) Other Ambulatory Orders: Dexa Bone Density Study (Routine) Timeframe: 3 Weeks Facility: [facility] - Location: [facility] Ordered By: Dr. Mari Mehta Referrals / Follow Up: Klaus Castañeda [Other] - 03/09/24 2:30 pm () sleep, study [Other] - 03/04/24 8:00 pm Miryam Wells NP-C [Primary Care Provider] - 03/10/24 12:40 pm Anuj Cowart MD [Med Staff - Courtesy Staff] - (Thyroid and Parathyroid Referral faxed to office. Office will call you to make appt. If you do not hear from them in 1 week call them. ) Disposition Disposition (needs filled in before D/C Order can be placed): Home, Self Care Charges/Coding Visit Charges Inpatient E&M: 94480 Disch Hosp >30min
[2024-03-02 17:58] VITALS: BP 117/60; PULSE 75; RESP 17; TEMP 36.4; O2SAT 99
[2024-03-02] MEDS: Zolpidem Tartrate 5 MG Tablet PO (20:42)
[2024-03-02] MEDS: Petrolatum 33% Tube 1 APPLIC TOPICAL (20:43)
[2024-03-03] MEDS: oxyCODONE 5 MG Tablet PO ×2 (02:50→07:03)
[2024-03-03 06:55] VITALS: BP 126/54; PULSE 75; RESP 16; TEMP 36.4; O2SAT 96
[2024-03-03] MEDS: Levothyroxine 125 MCG Tablet PO (07:03)
[2024-03-03] MEDS: Zinc Sulfate 50 mg zinc (220 mg) ORAL capsule PO (07:03)
[2024-03-03] MEDS: Multivitamins,Therapeutic Tablet 1 TABLET PO (08:26)
[2024-03-03] MEDS: Calcium Carbonate 500 MG Tablet PO (08:26)
[2024-03-03] MEDS: Vitamin E 400 UNITS Capsule PO (08:27)
[2024-03-03] MEDS: Cholecalciferol (VIT D3) 25 MCG TABLET (1,000 UNITS) 50 MCG PO (08:27)
[2024-03-03] MEDS: Pyridoxine HCl 100 MG Tablet PO (08:27)
[2024-03-03] MEDS: Aspirin 81 MG TAB.CHEW PO (08:27)
[2024-03-03] MEDS: Furosemide 20 MG Tablet 60 MG PO (08:28)
[2024-03-03] MEDS: Loratadine 10 MG Tablet PO (08:28)
[2024-03-03] MEDS: Magnesium Chloride 64 MG Delay Rel.Tablet 128 MG PO (08:29)
[2024-03-03] MEDS: Vibegron 75 MG TABLET PO (08:29)
[2024-03-03] MEDS: Pantoprazole Sodium 20 MG Tablet PO (08:29)
[2024-03-03] MEDS: Lisinopril 10 MG Tablet PO (08:29)
[2024-03-03] MEDS: Doxycycline 100 MG CAPSULE PO (08:29)
[2024-03-03] MEDS: Gabapentin 300 MG Capsule PO (08:34)
== END 2024-03-03 11:00 | disposition home or self-care (01) | DRG 560 ==
PROVIDERS: Admitting Provider Internal Medicine; PCP Nurse Practitioner Family; Referring Provider Internal Medicine; Visit Provider Internal Medicine
DX: Z47.1 Aftercare following joint replacement surgery (principal); E87.22 Chronic metabolic acidosis; I13.0 Hypertensive heart and chronic kidney disease with heart failure and stage 1 through stage 4 chronic kidney disease, or unspecified chronic kidney disease; Z68.42 Body mass index [BMI] 45.0-49.9, adult; N18.4 Chronic kidney disease, stage 4 (severe); N25.81 Secondary hyperparathyroidism of renal origin; I50.32 Chronic diastolic (congestive) heart failure; L03.114 Cellulitis of left upper limb; I27.20 Pulmonary hypertension, unspecified; J44.9 Chronic obstructive pulmonary disease, unspecified; D53.9 Nutritional anemia, unspecified; E03.9 Hypothyroidism, unspecified; I87.2 Venous insufficiency (chronic) (peripheral); E66.01 Morbid (severe) obesity due to excess calories; G47.33 Obstructive sleep apnea (adult) (pediatric); I89.0 Lymphedema, not elsewhere classified; K59.04 Chronic idiopathic constipation; E61.1 Iron deficiency; K21.9 Gastro-esophageal reflux disease without esophagitis; M81.0 Age-related osteoporosis without current pathological fracture; Z98.84 Bariatric surgery status; G47.00 Insomnia, unspecified; Z96.612 Presence of left artificial shoulder joint; Z79.899 Other long term (current) drug therapy
CPT/HCPCS: 36415; 80053; 81001; 82274; 82607; 82728; 82746; 83540; 83550; 83735; 84100; 84439; 84443; 85025; 85045; 93971; 94762; 97110; 97116; 97162; 97166; 97530; 97535; 97802; J7050; A4216; J2916

== ENCOUNTER → 2024-03-04 | Outpatient (CLI) | payer MEDICARE, OTHER, SELFPAY ==
[2024-03-04] MEDS: Zolpidem Tartrate 5 MG Tablet PO (22:00)
== END | disposition home or self-care (01) ==
LOC: SL 20:03
PROVIDERS: PCP Nurse Practitioner Family; Visit Provider Internal Medicine
DX: G47.33 Obstructive sleep apnea (adult) (pediatric) (principal)
CPT/HCPCS: 95810

== ENCOUNTER → 2024-04-28 14:00 | Outpatient (RCR) | payer MEDICARE, OTHER, SELFPAY ==
--- NOTE | 2024-03-10 13:19 | HP.PTEVAL ---
Patient's Visit Information Visit Information Visit Information: MARI LOPEZ is a 83 year old F referred to Physical Therapy by Dr. Mari Mehta DO with a diagnosis of L rev TSA 02/22/24. Date of Evaluation: 03/10/24 Physical Therapist: Russell Levy, DPT, OCS, CSCS Visit Plan Frequency: 1-2x /Week Duration: 3 Months Plan: 1-2x/week for up to 12 weeks, start 4 week for PROM L shoulder until 03/21 adn continue ice, scar massage when able and progressive ROM of elbow, scap, hand.Sling til 03/21 After 03/21 may start AAROM to aROM progression and isometrics, ice as needed, STM as needed. strength as tolerated end of year. pt will do LE gym exercises adn we can monitor these for need for help. Subjective Subjective: 02/22/24 L TSA reverse. Saw doctor yesterday adn doing well, sling can come off 03/21. Pain level is OK, Up to 8/10 this week without reason. Steristrips out yesterday. Sling 100% of time except shower. Has PROm 2x/day with living mate, doing pendulums and elbow ROm and had ROM. X rays were good. Sleep: OK wiht ambien in reclining bed elevated. Drives back and forth but cannot right now and wants to drive again. Has ice machine and uses it sitting. Pain L shoulder: Pain Intensity (Out of 10): 0 Pain Intensity Range: 0 and 8 Objective Objective: L walks back to PT with sling on L shoulder I with B trendelenberg gait and slow but steady. Doffs sling I, hold L UE in elbow extension without sling on. Able to move scap and elbow and wrist and hand without problems or pain. hesitant to move L elbow but not painful or limited. PROM L shoulder flexion 115 and abd 95 and er is 30 all limited by slight disocmfort more than endfeel or pain. Educated pt on how to do PROM ex at home with partners help. Sensation UE WNL to gross light touch. Incision is anterior L shoulder and dry and no signs of excessive redness, heat or swelling. Tissue around it is patent and loose, mild scarring underneath. R shoulder AROM WFL and without pain or hesitation. Pt is motivated to do gym exercises and home exercises involving legs and correctly shows me pendulum, shoulder blade circles, elbow flexion with cues and PROM abd and er reviewed as her partner is doing this , all 2x/day Balance/Special Test Scores Quick DASH Score: 56.8175 Goals Goal 1:: ST: PROM and AROM to 140 flexion 55 er Goal Time Frame: 2-4 Weeks Goal 2:: Pain 0-1/10 at all times and 90% better overall Goal Time Frame: 2-4 Weeks Goal 3:: LT: I appropriate HEP to limit future problems Goal Time Frame: 8-12 Weeks Goal 4:: Pt feel activity with L shoulder back to 90% normal including dressing and driving Goal Time Frame: 8-12 Weeks Goal 5:: qucikdash score 14 or better Goal Time Frame: 8-12 Weeks Rehabilitation Potential Physical Therapy Diagnosis: Shoulder weakness pain and stiffness L after recent TSA rev Rehabilitation Potential: Good Anticipated Interventions Patient/Client Instruction: Educate patient on: Condition and Plan of Care For the Purpose of:: To improve nutrient delivery to tissue, To improve muscle performance and motor function, To increase tolerance to activity/condition/position, To improve health of tissue and To increase flexibility/ROM Therapeutic Exercise to Include: Strength training, Postural training, Flexibilty training, Passive ROM, Active ROM and Scapular Strength/Stabilization For the Purpose of:: To decrease pain, To increase ROM, To improve nutrient delivery to tissue, To improve muscle performance and motor function, To increase tolerance to activity/condition/position, To improve health of tissue and To increase flexibility/ROM Manual Therapy Techniques to Include: Scar massage, Mobilization and Passive ROM For the Purpose of:: To increase ROM and To improve nutrient delivery to tissue Cryotherapy (ice pack, ice massage): Yes For the Purpose of:: To decrease swelling/inflammation Text: Thank you for the opportunity to evaluate your patient. For Medicare and Medicare HMO plans, please review the plan of care and approve it. It will need to be FAXED BACK to us at [phone] for Medicare purposes. For Medicare only, by signing this I certify the plan of care. Please let me know if there are questions or concerns regarding this plan of care. Physician Signature: Date:
== END ==
LOC: PT 03-10 12:28
PROVIDERS: PCP Nurse Practitioner Family; Visit Provider Internal Medicine
DX: Z96.612 Presence of left artificial shoulder joint (principal)
CPT/HCPCS: 97110; 97140; 97161; 97530

== ENCOUNTER 2024-05-01 12:20 | Inpatient (IN) | payer MEDICARE, OTHER, SELFPAY ==
[2024-05-01] VITALS (24 sets, daily range): BP systolic 88–118; BP diastolic 38–60; PULSE 75–88; RESP 12–28; TEMP 34.1–37.1; O2SAT 96–100; BMI 45.2; BMI 46.2
[2024-05-01] MEDS: 0.9% Normal Saline (1000mL) 1,000 ML 999 ML IV (12:33)
--- NOTE | 2024-05-01 12:35 | EKG12_ITS ---
Test Reason : UNRESPONSIVE Blood Pressure : */* mmHG Vent. Rate : 96 BPM Atrial Rate : * BPM P-R Int : * ms QRS Dur : 108 ms QT Int : 386 ms P-R-T Axes : * 8 168 degrees QTcB Int : 487 ms Sinus tachycardia Low voltage QRS Incomplete left bundle branch block ST & T wave abnormality, consider lateral ischemia Prolonged QT Abnormal ECG Confirmed by MARY JACK, SISI ([id number]), digital editor EMILY HUTSON ([id number]) on 05/03/2024 6:17:22 AM Referred By: Bernarda Becerril Confirmed By: SISI HERNANDEZ MD
--- NOTE | 2024-05-01 12:44 | EX.ED.CRITCA ---
HPI History of Present Illness Chief Complaint: Alt LOC Detail of Chief Complaint: Altered mental status, hypotension Informant: EMS (Nurse asked me to see patient immediately because she is hypotensive with altered mental status) Onset/Context/Timing Onset: - (Presumed today) Context: - (Unable to determine) Timing: Continuous Quality: Unable to obtain Location: Unable to obtain Current Severity: Altered mental status, hypotension Maximum Severity: Unable to obtain or determine Worsened by: Unable to obtain Relieved by: Unable to obtain Associated Symptoms Length of loss of consciousness: Unknown Narrative Narrative: Patient is an 83-year-old woman. Has history of osteoporosis, obstructive sleep apnea, debility. Based on medication suspect patient has hypertension, GERD and constipation. Patient is presently hypotensive. She was on percent nonrebreather. Unable to obtain history. Prior similar symptoms: No Recent Illness/Hospitalization: No (Patient was last seen June 07, 2023 for acute kidney injury. 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 Abdominal pain History of back problems Chronic kidney disease DVT (deep venous thrombosis) GERD (gastroesophageal reflux disease) Insomnia Obstructive sleep apnea Essential (primary) hypertension Chronic obstructive airway disease with asthma Incomplete left bundle branch block Home Medications ?Medication ?Instructions ?Recorded ?Last Taken ?Type omeprazole 20 mg capsule,delayed 20 mg PO DAILY reflux 11/13/17 02/24/24 History release glucosamine 500 1 cap PO TID supplement 10/17/19 02/24/24 History le-ofajcdiek-dbedwitd comp 400 mg-D3 667 unit-C-Mn cap hydrocortisone-pramoxine 2.5 %-1 % 1 applic MN BID . 10/17/19 Unknown History (4g) rectal cream cholecalciferol (vitamin D3) 25 50 mcg PO DAILY supplement 07/25/21 Unknown History mcg (1,000 unit) capsule levonorgestrel (Mirena) 1 mcg intrauterine ONCE . 07/25/21 Unknown History vitamin E mixed 400 unit capsule 400 unit PO DAILY supplement 07/25/21 02/24/24 History pyridoxine (vitamin B6) 100 mg 100 mg PO DAILY supplement 12/19/21 Unknown History tablet (Vitamin B-6) acetaminophen 500 mg tablet 1,000 mg PO Q8H pain 06/27/22 Unknown History gabapentin 300 mg capsule 300 mg PO TID nerve pain 06/27/22 02/24/24 History magnesium oxide 200 mg PO DAILY supplement 06/27/22 02/24/24 History multivitamin 1 tab PO DAILY supplement 06/27/22 02/24/24 History nitroglycerin 0.4 mg sublingual 0.4 mg sublingual Q5M PRN chest 06/27/22 Unknown Rx tablet pain #30 tabs lisinopril 10 mg tablet 10 mg PO DAILY blood pressure 06/07/23 Unknown History vibegron 75 mg tablet (Gemtesa) 75 mg PO DAILY overactive bladder 06/07/23 02/24/24 History polyethylene glycol 3350 17 gram 17 g PO DAILY bowel mobility #30 ea 06/09/23 02/24/24 Rx oral powder packet fluorometholone 0.1 % eye 1 drp ophthalmic (eye) BID eyes 02/24/24 02/24/24 History drops,suspension furosemide 20 mg tablet 60 mg PO DAILY water retention 02/24/24 Unknown History zinc acetate 25 mg (zinc) capsule 50 mg PO TID supplement 02/24/24 02/24/24 History ascorbic acid (vitamin C) 500 mg 1,000 mg (2 x 500 mg) PO 03/01/24 Unknown Rx tablet DAILYCM@1200 #60 tabs aspirin 81 mg chewable tablet 81 mg PO BID #38 tabs 03/01/24 Unknown Rx calcium carbonate 500 mg (2.5 x 200 mg calcium (500 03/01/24 Unknown Rx mg)) PO TIDCM #90 tabs cyclobenzaprine 10 mg tablet 10 mg PO TID PRN Muscle Spasm #30 03/01/24 Unknown Rx tabs doxycycline monohydrate 100 mg 100 mg PO BID #10 caps 03/01/24 Unknown Rx capsule ferrous sulfate 325 mg (65 mg 325 mg PO DAILY@1200 #30 tabs 03/01/24 Unknown Rx iron) tablet (FeroSul) hydrocortisone 2.5 % topical 1 applic topical BID PRN PRN 03/01/24 Unknown Rx ointment RASH/TOPICAL IRRITATION #1 tube levothyroxine 125 mcg tablet 125 mcg PO DAILY thyroid #30 tabs 03/01/24 Unknown Rx oxycodone 5 mg tablet 5 mg PO Q4H PRN PRN pain 1-10 7 03/01/24 Unknown Rx days #35 tabs sennosides 8.6 mg-docusate sodium 2 tab PO BID #120 tabs 03/01/24 Unknown Rx 50 mg tablet (Stimulant Laxative Plus) zolpidem 5 mg tablet 5 mg PO QHS #30 tabs 03/01/24 Unknown Rx Allergy/AdvReac Type Severity Reaction Status Date / Time cefazolin (From Kefzol) Allergy Severe hives/difficulty Verified 05/01/24 13:06 swallowing ibuprofen Allergy Unknown Rash Verified 05/01/24 13:06 peanut Allergy Anaphylaxis Verified 05/01/24 13:06 Sulfa (Sulfonamide Allergy Unknown Verified 05/01/24 13:06 Antibiotics) sulfamethoxazole (From Allergy Other Verified 05/01/24 13:06 Bactrim) trimethoprim (From Bactrim) Allergy Other Verified 05/01/24 13:06 Family History Mother Cancer uterine Surgical History History of left heart catheterization (08/01/22) History of dilatation and curettage History of hysteroscopy History of bilateral knee replacement History of herniorrhaphy Status post debridement History of open reduction and internal fixation (ORIF) procedure H/O hemorrhoidectomy History of gastric bypass Social History household members: other details: She has a roomate housing: house number of children: 1 current occupational status: retired pets and animals: Yes pets and animals: dog(s) Smoking Status: Never smoker alcohol intake: never substance use type: does not use caffeine: Yes Type: coffee Number of servings: 3 ROS ROS ED Review of Systems ROS Unobtainable: due to mental status EXAM Physical Exam Const Vital Signs: 05/01/24 12:35 Pulse Ox 100 Oxygen Delivery Method Room Air Positive well nourished, well developed and obese Constitutional Narrative: Patient is somnolent. Patient attempts to speak with sternal rub and pressure on the supraorbital nerve. General Appearance ED: well developed; Negative for pallor Nutritional Appearance: obese HEENT HEENT Narrative: Patient's tongue and mucosa are dry. She has poor oral hygiene. normocephalic and atraumatic; Negative for cyanosis of lips/distal nose Eyes PERRL and EOMs intact bilaterally General Eye ED: Negative for pale conjunctiva or scleral icterus Neck full ROM, no lymphadenopathy, supple and no JVD Neck Narrative: Trachea is midline. At the end of expiration stridor was appreciated. Chest Wall Chest Narrative: There is no chest wall abnormality. There is no crepitus or bruising noted. Resp Resp Narrative: Patient is tachypneic. She is not hypoxic. Patient has bibasilar rales. Question of scattered expiratory wheezing. Cardio regular rate, regular rhythm, S1 normal heart sound, S2 normal heart sound and no murmurs GI non-tender, non-distended and no masses Auscultation: hypoactive bowel sounds Palpation: soft Narrative: Patient's diaper is full of small she brown-grayish colored stool Extremity Extremity Narrative: Patient has edema of the lower extremities. There is evidence of acrocyanosis. Did not appreciate a PT or DP pulse right or left. Patient does have carotid pulses bilaterally and weak femoral pulses noted bilaterally. Neuro No oriented x3 Sensorium / Orientation: Negative for alert Speech: Negative for speech normal Gait (Neuro): Negative for normal gait Psych Psych Narrative: Unable to determine Skin Skin Narrative: Patient has dry skin General Skin Exam: Negative for jaundice or pallor Sepsis Attestation Sepsis Alert: Yes Sepsis Attestation: Agree w/Sepsis Date exam was performed: 05/01/24 Time exam was performed: 13:30 Possible Source of Sepsis: Pulmonary Sepsis Organ Dysfunction Criteria Present: SBP < 90 mmHg or MAP < 65 mmHg, Creatinine > 2.0 mg/dL and New/Unexplained change in mental status Fluid Resuscitation Fluid resuscitation indicated?: Yes Fluid Resuscitation ordered: 30 ml/kg fluid bolus ordered Sepsis Note Date exam was performed: 05/01/24 Time exam was performed: 14:32 Sepsis Attestation: Sepsis re-evaluation was performed Response to fluids: Non Fluid responsive hypotension and Vasopressors started MDM MDM MDM Narrative Medical decision making narrative: Patient is hypotensive with altered mental status who arrived on oxygen by nonrebreather. Need to assess for hypercapnia. Need to assess for sepsis, cardiac ischemia, GI bleed. Stool is not black or maroon. If she does have a GI bleed is not significant. Metabolic, infectious workup was undertaken. Because of the abnormal respiratory findings on auscultation chest x-ray was obtained. Ahuja was placed for accurate I's and O's. Blood work from 29 February 2024 reveals macrocytic anemia. Electrolyte panel reveals BUN/creatinine of 69 and 1.56 on February 25, 2024. Urinalysis on February 25 revealed pyuria with bacteriuria. Patient had stool sent for blood February 24 and was negative. Patient had sleep study March 04, 2024. Sleep study questionnaire was reviewed. Lab Data Attestation: I reviewed the patient's lab results. Lab results narrative: White count is elevated 17,000. Patient has increased anemia compared to prior. There is a slight shift. There is no bandemia. Coags are pending. Comprehensive metabolic panel reveals acute endorgan dysfunction. Potassium 6.1 suspect this is due to her metabolic Acidosis. BUN is under 58 creatinine is 7.93. Estimated GFR is 5. Transaminases are normal. Glucose is normal. Labs: Laboratory Results - last 24 hr 05/01/24 12:49 WBC 17.0 H RBC 3.00 L Hgb 9.7 L Hct 30.5 L MCV 101.7 H MCH 32.3 H MCHC 31.8 L RDW Std Deviation 61.4 H RDW Coeff of Parris 16.6 H Plt Count 286 MPV 12.8 H Immature Gran % (Auto) 1.100 H Neut % (Auto) 83.3 H Lymph % (Auto) 7.4 L Gonzales % (Auto) 7.5 Eos % (Auto) 0.4 Baso % (Auto) 0.3 Absolute Neuts (auto) 14.2 H Absolute Lymphs (auto) 1.26 Nucleated RBC % 0.4 PT Cancelled INR Cancelled APTT Cancelled Sodium 142 Potassium 6.1 H* Chloride 121 H Carbon Dioxide 4.0 L* Anion Gap 18 H BUN 158 H* Creatinine 7.93 H* Est GFR (MDRD) Af Amer 6 L Est GFR (MDRD) Non-Af 5 L BUN/Creatinine Ratio 19.9 Glucose 69 L Lactic Acid 0.8 Calcium 8.4 L Total Bilirubin 0.30 AST 22 ALT 18 Alkaline Phosphatase 97 Total Protein 6.5 Albumin 2.8 L Globulin 3.7 Albumin/Globulin Ratio 0.8 L ABG Data Attestation: I personally reviewed and interpreted this ABG as follows: Interpretation: VBG reveals a significant metabolic acidosis. Base excess is -27. ABG results: ABG 05/01/24 13:12 Specimen Type BEAR Sample Site Not entered O2 % 21.0 VBG pH 7.02 L* VBG pO2 199 H VBG Total CO2 < 5 L VBG O2 Sat (Calc) 99 H VBG Base Excess -27 L POC Mix VBG pCO2 Pt Tmp 14.1 L* O2 Delivery Device Not entered Crit Call To/Read Back Yes Blood Gas Notified Whom carson Blood Gas Notified Time 13:13:56 Radiography Chest X-Ray - ED: 1 View (Right subclavian line is not in proper position. Since her difficulty aspirating blood will attempt different site.) and - (Second chest x-ray reveals endotracheal tube to be in proper position. IJ in proper position. OG in proper position. There is no evidence of pneumothorax or hemothorax.) EKG Initial EKG: Attestation: I personally reviewed and interpreted this EKG as follows: Interpretation: Sinus Rhythm (Sinus rhythm rate of 96. MN interval is normal. Cures duration slightly prolonged at 108 with what appears to be an intraventricular conduction delay. QT interval 386 ms. QT is prolonged. There is artifact as well due to her respiratory distress.) Management Discussion w/another healthcare provider: Hospitalist (For admission to ICU in critical condition. Patient did receive 50 mg/kg of vancomycin. She will be admitted to the ICU. She was started on Levophed.) and Other (Respiratory therapist for vent settings.) Procedures Intubations Intubation Method: orotracheal Intubation Verification: Positive color change Intubation Complications: no complications Other Procedures Procedure(s): Central line: Ultrasound was used. The IJ was collapsed. Concern that I may cannulate the carotid artery which is adjacent and overlapping the hide J. A right subclavian line was attempted. The vessel was cannulated successfully on the way out first attempt. Guidewire was placed. Using Seldinger technique triple-lumen was placed. There was difficulty aspirating blood from all 3 ports. Concerned that the vessel may not be cannulated. X-ray reveals that the triple-lumen apparently went cephalad then may have gone across the innominate and curled back on itself. Suspect this is why I am unable to draw fluid. Central line efforts were aborted. Patient is profoundly tachypneic hypotensive and acidotic. Patient was prepped for orotracheal intubation. She was preoxygenated. She received 20 mg of etomidate followed by 75 mg rocuronium. Using glide scope 7.5 [place] triple-lumen was placed. Tube is 23 cm at the incisors. There is appropriate color change with capnometer. Breath sounds were noted bilaterally. There is no breath sounds over the epigastrium. Patient was then prepped for central line. Attempt at placing OG was unsuccessful by me even using glide scope. The endotracheal tube did go into the proximal portion of the esophagus however it curls on itself. Because of patient's critical condition and the fact that she is hypotensive this was aborted and a right IJ was placed. The right and left IJ were visualized with ultrasound. They are now prominent. Suspect this is due to the fact that she has received 2.5 L of saline. Patient was prepped draped sterile manner. Protocol was adhered to. All occupants were or And mask. The right IJ was successfully cannulated. Using Seldinger technique 7.5 [place] triple-lumen was placed. Blood was aspirated from all 3 ports. Will obtain chest x-ray to confirm proper position. Also to confirm position of endotracheal tube. Critical Care Time Critical Care Time: Yes Critical care time (excluding procedures): 30-74 minutes (62), Including time spent: (History, physical, documentation, review prior records. Care for shock suspected septic.), Discussing w/Consultants, Arranging Admission or Transfer, Performing Direct Patient Care at Bedside (Bedside care for shock.) and - (Because of patient's allergies and type of reaction she was treated with levofloxacin which will cover both respiratory and urologic pathogens. Based on material noted at the vocal cord suspect patient has pneumonia. Will treat with levofloxacin as previously mentioned and will add vancomycin.) Discharge Plan Triage Chief Complaint: Alt LOC Other Complaint: Shortness of Breath ED Provider: Alexis Carson Dx/Rx/DC Orders Clinical Impression: Septic shock, Obstructive sleep apnea, Metabolic acidosis, Osteoporosis, Acute renal failure, Acute hyperkalemia, Anemia in chronic illness Prescriptions: No Action [id number]-[id number]-[id number]-C-Mn 500-400-667 mg-mg-unit capsule 1 cap PO TID hydrocortisone-pramoxine 2.5-1 % (4g) cream 1 applic RC BID cholecalciferol (vitamin D3) 25 mcg (1,000 unit) capsule 50 mcg PO DAILY vitamin E mixed 400 unit capsule 400 unit PO DAILY Mirena 20 mcg/24 hours (7 yrs) 52 mg intrauterine device 1 mcg intrauterine ONCE pyridoxine (vitamin B6) [Vitamin B-6] 100 mg tablet 100 mg PO DAILY acetaminophen 500 mg tablet 1,000 mg PO Q8H multivitamin Tablet 1 tab PO DAILY gabapentin 300 mg capsule 300 mg PO TID Patient Comments: TAKE ONE PILL BY MOUTH 3 TIMES PER DAY magnesium oxide 200 mg magnesium tablet 200 mg PO DAILY nitroglycerin 0.4 mg tablet, sublingual 0.4 mg sublingual Q5M PRN (Reason: chest pain) Qty: 30 1RF Rx Instructions: do not exceed 3 doses per episode omeprazole 20 MG capsule 20 mg PO DAILY zinc acetate 25 mg (zinc) capsule 50 mg PO TID fluorometholone 0.1 % drops,suspension 1 drp ophthalmic (eye) BID furosemide 20 mg tablet 60 mg PO DAILY ascorbic acid (vitamin C) 500 mg Tablet 1,000 mg PO DAILYCM@1200 Qty: 60 0RF Rx Instructions: Take this with the iron supplement at lunch daily aspirin 81 mg Tablet,Chewable 81 mg PO BID Qty: 38 0RF Rx Instructions: Take 1 twice a day with food until gone.....for prevention of blood clots. calcium carbonate 200 mg calcium (500 mg) Tablet,Chewable 500 mg PO TIDCM Qty: 90 0RF doxycycline monohydrate 100 mg Capsule 100 mg PO BID Qty: 10 0RF ferrous sulfate [FeroSul] 325 mg (65 mg iron) Tablet 325 mg PO DAILY@1200 Qty: 30 0RF Rx Instructions: Take this with vitamin C at Lunch every day hydrocortisone 2.5 % Ointment 1 applic topical BID PRN PRN (Reason: RASH/TOPICAL IRRITATION) Qty: 1 0RF Protocol: *Topical Application Instructions APPLICATION INSTRUCTIONS: apply to areas of itching oxycodone 5 mg Tablet 5 mg PO Q4H PRN PRN (Reason: pain 1-10) 7 Days Qty: 35 0RF sennosides-docusate sodium [Stimulant Laxative Plus] 8.6-50 mg Tablet 2 tab PO BID Qty: 120 0RF zolpidem 5 mg Tablet 5 mg PO QHS Qty: 30 0RF cyclobenzaprine 10 mg tablet 10 mg PO TID PRN (Reason: Muscle Spasm) Qty: 30 0RF levothyroxine 125 mcg tablet 125 mcg PO DAILY Qty: 30 0RF Patient Comments: TAKE 1 TABLET BY MOUTH ONCE DAILY. TAKE ON EMPTY STOMACH. FOR THYROID. Rx Instructions: Take 1 tab daily except on Tuesdays take only 1/2 tab. Take on empty stomach Gemtesa 75 mg tablet 75 mg PO DAILY Patient Comments: TAKE 1 TABLET BY MOUTH EVERY DAY lisinopril 10 mg tablet 10 mg PO DAILY polyethylene glycol 3350 17 gram Powder In Packet 17 g PO DAILY Qty: 30 0RF Primary Care Provider: Miryam Wells Referrals: Miryam Wells, VULNERABILITY RESEARCHER-C [Primary Care Provider] - Print Language: Ghanaian Disposition Disposition: Acute Care Hospital [facility] Capacity Capacity Assessment Tool Patient lacks Decision Making Capacity: unable to understand, reason and deliberate health related choices: Yes Risk to self and or others?: No Risk of leaving the patient care unit and or hospital?: No Legal Body Cleaner Reflex Medical hold order details:: Patient is not able to give consent for intubation or central line. Presumed since patient presented for treatment and there is no documented DNR that she would agree if she had the capacity. Per nurse no family members are present.
[2024-05-01 13:07] LABS: Absolute Lymphocyte Count 1.26 X10^3/uL (0.83-4.51); Absolute Neutrophil Count 14.2 X10^3/uL (2.0-7.7); Basophil# 0.05 X10^3/uL; Basophil% 0.3 % (0-1); Eosinophil# 0.06 X10^3/uL; Eosinophils% 0.4 % (0-5); Hematocrit 30.5 % (37-47); Hemoglobin 9.7 g/dL (12.0-15.0); Lymphocyte # 1.26 X10^3/ul (0.83-4.51); Lymphocyte % 7.4 % (19-41); Mean Corp Hgb Conc 31.8 g/dL (32-36); Mean Corpuscular Hgb 32.3 pg (27.0-32.0); Mean Corpuscular Volume 101.7 fL (81-99); Mean Platelet Vol. 12.8 fl (6.2-12.0); Monocyte# 1.28 X10^3/uL; Monocyte% 7.5 % (0-10); NRBC Flagged by Analyzer 0.4 % (0-5); Neutrophil % 83.3 % (47-70); Platelet Count 286 K/mm3 (150-450); RBC Distribution Width CV 16.6 % (11.6-14.6); RBC Distribution Width SD 61.4 fl (35.1-43.9)
[2024-05-01 13:16] LABS: Blood Gas Specimen Type VEN; O2 Delivery Device Not entered; SITE Not entered; VBG BASE EXCESS -27 mmol/L (-1.0-3.5); VBG PO2 199 mmHg (25-40); VBG SO2 99 % (50-70); VBG TCO2 < 5 mmol/L (23-33); VBG pCO2 14.1 mmHg (41-51); VBG pH 7.02 (7.32-7.42)
[2024-05-01 13:25] LABS: Lactic Acid 0.8 mmol/L (0.4-1.9)
--- NOTE | 2024-05-01 13:35 | RAD_ITS ---
STUDY: XR Chest 1 View 05/01/2024 1:27 PM REASON FOR EXAM: Female, 83 years old. Wheezing and ralesCHEST PAIN COMPARISON: 07/25/2022 TECHNIQUE: XR Chest 1 View FINDINGS: There is no demonstrated pleural abnormality. PICC line is not visualized. There is a right subclavian line coiled in the region of the right subclavian vein. No pneumothorax. Total left shoulder arthroplasty. Enlarged heart size. Normal mediastinum. Normal nataliya. Prominent appearing increased interstitial lung markings. Normal visualized pulmonary arteries. There is atherosclerotic calcification of the aortic arch with tortuosity. There are diffuse degenerative changes of the visualized thoracic spine. There is degenerative osteoarthritis of the bilateral shoulders. There are no acute findings of the upper abdomen. RAD/Chest 1 View (Portable) IMPRESSION: There is a right subclavian line coiled in the region of the right subclavian vein. Electronically Signed: Jerod Michael MD at 14:22 EST ,
[2024-05-01 13:37] LABS: ALB/GLOB Ratio 0.8 RATIO (0.9-2.4); AST(SGOT) 22 U/L (15-37); Alanine Aminotransfer ALT/SGPT 18 U/L (13-56); Albumin, Serum 2.8 g/dL (3.2-5.0); Alkaline Phosphatase 97 U/L (45-117); Anion Gap 18 (5-15); BUN 158 mg/dL (7-18); BUN/Creat Ratio 19.9 RATIO (10-20); Calcium,Total 8.4 mg/dL (8.5-10.1); Chloride 121 mmol/L (98-107); Creatinine, Serum 7.93 mg/dL (0.55-1.02); EST Glomerular Filtration Rate 5 mL/min (>60); Est Glom Filt Rate - Afr Amer 6 mL/min (>60); Globulin 3.7 g/dL (2.2-4.2); Glucose 69 mg/dL (74-106); Potassium 6.1 mmol/L (3.5-5.1); Protein, Total 6.5 g/dL (6.4-8.2); Sodium Level 142 mmol/L (136-145)
[2024-05-01] MEDS: Etomidate 20 MG/10 ML Vial IV (13:39)
[2024-05-01] MEDS: Rocuronium Bromide 50 MG/5 ML Vial 75 MG IV (13:39)
[2024-05-01] MEDS: 0.9% Normal Saline (1000mL) 1,000 ML 1000 ML IV ×2 (13:45→14:10)
--- NOTE | 2024-05-01 14:10 | RAD_ITS ---
STUDY: XR Chest 1 View 05/01/2024 2:13 PM REASON FOR EXAM: Female, 83 years old. IntubationET tube placement OG placement central line replaced COMPARISON: Study done earlier today. TECHNIQUE: XR Chest 1 View FINDINGS: There is no demonstrated pleural abnormality. Right internal jugular line. Tip in the right atrium. No pneumothorax. Total left shoulder arthroplasty. ET tube in good position. NG tube in good position. Enlarged heart size. Normal mediastinum. Normal nataliya. Prominent appearing increased interstitial lung markings. Normal visualized pulmonary arteries. There is atherosclerotic calcification of the aortic arch with tortuosity. There are diffuse degenerative changes of the visualized thoracic spine. There is degenerative osteoarthritis of the bilateral shoulders. There are no acute findings of the upper abdomen. RAD/Chest 1 View (Portable) IMPRESSION: Right internal jugular line. Tip in the right atrium. No pneumothorax. Electronically Signed: Jerod Michael MD at 15:02 [facility] Reading Location ID and State: [facility] / [place] , Service support ,
--- NOTE | 2024-05-01 14:10 | ED.RN ---
Patient moving hands and attempting to pull at lines. Attempted redirection. Dr. Friend notified.
--- NOTE | 2024-05-01 14:15 | ED.RN ---
Soft restraints applied to bilateral wrists due to patient attempting to pull at lines and tubes post intubation. Dr. Friend notified
--- NOTE | 2024-05-01 14:38 | PCM.HP.STD ---
HPI - General General Date of Service: 05/01/24 Chief Complaint: AMS HPI Narrative MARI LOPEZ, is a 83-year-old female with a history of stage I diastolic dysfunction, GERD, hypertension, hypothyroidism, TADEO presented to [facility] ED 05/01/2024 with altered mental status and was hypotensive. She had ABG which revealed pH of 7.02 with a CO2 of less than 5 and bicarb still pending, white blood cell count of 17 with hemoglobin of 9.7, patient also with potassium of 6.1, bicarb of 4 with an anion gap of 18 and she was found to be in acute renal failure with a BUN of 158 and a creatinine of 7.93. Patient intubated and had right IJ placed, she was given vancomycin, Levaquin, IV fluids and given continued hypotension started on Levophed and hospitalist contacted for admission. Only information available from the squad report as patient unable to answer questions and no family at bedside. Reportedly neighbor called the squad as patient started getting sick on Thursday and has progressively worsened and ultimately was ANO x 1 when EMS arrived (usually ANO x 3) and in the ED was not responsive. No other history available at this time [facility] Medical History Hypothyroidism Elevated parathyroid hormone Osteoporosis Morbid obesity with BMI of 45.0-49.9, adult Osteoarthritis Venous insufficiency of both lower extremities Diastolic dysfunction Pulmonary hypertension Metabolic acidosis Macrocytic anemia Lymphedema Preop cardiovascular exam H/O hemorrhoids Cholecystectomy planned Spinal cord stimulator status (HFpEF) heart failure with preserved ejection fraction History of pulmonary embolus (PE) COVID-19 (01/19/21) MRSA (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 Abdominal pain History of back problems Chronic kidney disease DVT (deep venous thrombosis) GERD (gastroesophageal reflux disease) Insomnia Obstructive sleep apnea Essential (primary) hypertension Chronic obstructive airway disease with asthma Incomplete left bundle branch block Home Medications ?Medication ?Instructions ?Recorded ?Last Taken ?Type omeprazole 20 mg capsule,delayed 20 mg PO DAILY reflux 11/13/17 02/24/24 History release glucosamine 500 1 cap PO TID supplement 10/17/19 02/24/24 History pc-bgybzzqoh-cjxdqqxz comp 400 mg-D3 667 unit-C-Mn cap hydrocortisone-pramoxine 2.5 %-1 % 1 applic OH BID . 10/17/19 Unknown History (4g) rectal cream cholecalciferol (vitamin D3) 25 50 mcg PO DAILY supplement 07/25/21 Unknown History mcg (1,000 unit) capsule levonorgestrel (Mirena) 1 mcg intrauterine ONCE . 07/25/21 Unknown History vitamin E mixed 400 unit capsule 400 unit PO DAILY supplement 07/25/21 02/24/24 History pyridoxine (vitamin B6) 100 mg 100 mg PO DAILY supplement 12/19/21 Unknown History tablet (Vitamin B-6) acetaminophen 500 mg tablet 1,000 mg PO Q8H pain 06/27/22 Unknown History gabapentin 300 mg capsule 300 mg PO TID nerve pain 06/27/22 02/24/24 History magnesium oxide 200 mg PO DAILY supplement 06/27/22 02/24/24 History multivitamin 1 tab PO DAILY supplement 06/27/22 02/24/24 History nitroglycerin 0.4 mg sublingual 0.4 mg sublingual Q5M PRN chest 06/27/22 Unknown Rx tablet pain #30 tabs lisinopril 10 mg tablet 10 mg PO DAILY blood pressure 06/07/23 Unknown History vibegron 75 mg tablet (Gemtesa) 75 mg PO DAILY overactive bladder 06/07/23 02/24/24 History polyethylene glycol 3350 17 gram 17 g PO DAILY bowel mobility #30 ea 06/09/23 02/24/24 Rx oral powder packet fluorometholone 0.1 % eye 1 drp ophthalmic (eye) BID eyes 02/24/24 02/24/24 History drops,suspension furosemide 20 mg tablet 60 mg PO DAILY water retention 02/24/24 Unknown History zinc acetate 25 mg (zinc) capsule 50 mg PO TID supplement 02/24/24 02/24/24 History ascorbic acid (vitamin C) 500 mg 1,000 mg (2 x 500 mg) PO 03/01/24 Unknown Rx tablet DAILYCM@1200 #60 tabs aspirin 81 mg chewable tablet 81 mg PO BID #38 tabs 03/01/24 Unknown Rx calcium carbonate 500 mg (2.5 x 200 mg calcium (500 03/01/24 Unknown Rx mg)) PO TIDCM #90 tabs cyclobenzaprine 10 mg tablet 10 mg PO TID PRN Muscle Spasm #30 03/01/24 Unknown Rx tabs doxycycline monohydrate 100 mg 100 mg PO BID #10 caps 03/01/24 Unknown Rx capsule ferrous sulfate 325 mg (65 mg 325 mg PO DAILY@1200 #30 tabs 03/01/24 Unknown Rx iron) tablet (FeroSul) hydrocortisone 2.5 % topical 1 applic topical BID PRN PRN 03/01/24 Unknown Rx ointment RASH/TOPICAL IRRITATION #1 tube levothyroxine 125 mcg tablet 125 mcg PO DAILY thyroid #30 tabs 03/01/24 Unknown Rx oxycodone 5 mg tablet 5 mg PO Q4H PRN PRN pain 1-10 7 03/01/24 Unknown Rx days #35 tabs sennosides 8.6 mg-docusate sodium 2 tab PO BID #120 tabs 03/01/24 Unknown Rx 50 mg tablet (Stimulant Laxative Plus) zolpidem 5 mg tablet 5 mg PO QHS #30 tabs 03/01/24 Unknown Rx Allergy/AdvReac Type Severity Reaction Status Date / Time cefazolin (From Kefzol) Allergy Severe hives/difficulty Verified 05/01/24 13:06 swallowing ibuprofen Allergy Unknown Rash Verified 05/01/24 13:06 peanut Allergy Anaphylaxis Verified 05/01/24 13:06 Sulfa (Sulfonamide Allergy Unknown Verified 05/01/24 13:06 Antibiotics) sulfamethoxazole (From Allergy Other Verified 05/01/24 13:06 Bactrim) trimethoprim (From Bactrim) Allergy Other Verified 05/01/24 13:06 Family History Mother Cancer uterine Surgical History History of left heart catheterization (08/01/22) History of dilatation and curettage History of hysteroscopy History of bilateral knee replacement History of herniorrhaphy Status post debridement History of open reduction and internal fixation (ORIF) procedure H/O hemorrhoidectomy History of gastric bypass Social History household members: other details: She has a roomate housing: house number of children: 1 current occupational status: retired pets and animals: Yes pets and animals: dog(s) Smoking Status: Never smoker alcohol intake: never substance use type: does not use caffeine: Yes Type: coffee Number of servings: 3 ROS ROS Narrative Unable to obtain secondary to patient intubated and unresponsive Vital Signs Vital Signs Vital Signs: 05/01/24 12:35 Pulse Ox 100 Oxygen Delivery Method Room Air Physical Exam Narrative General: Intubated and not responsive HEENT: Atraumatic, normocephalic Eyes: Eyes closed, no spontaneous opening Neck: Supple Respiratory: Mechanically ventilated, airflow appreciated in both upper lung webster but diminished in lower lung webster suspect secondary to body habitus Cardiovascular: Regular rate and rhythm GI: Soft Extremities: No significant pitting edema Musculoskeletal: Presently sedated and not moving extremities spontaneously Neuro: Unable to participate in neuro exam secondary to intubated and sedated Skin: No rashes appreciated Psych: Unable to cooperate secondary to intubated and sedated Results Lab / Micro Data 05/01/24 12:49 05/01/24 12:49 Labs: Laboratory Results - last 24 hr 05/01/24 12:49: WBC 17.0 H, RBC 3.00 L, Hgb 9.7 L, Hct 30.5 L, MCV 101.7 H, MCH 32.3 H, MCHC 31.8 L, RDW Std Deviation 61.4 H, RDW Coeff of Parris 16.6 H, Plt Count 286, MPV 12.8 H, Immature Gran % (Auto) 1.100 H, Neut % (Auto) 83.3 H, Lymph % (Auto) 7.4 L, [place] % (Auto) 7.5, Eos % (Auto) 0.4, Baso % (Auto) 0.3, Absolute Neuts (auto) 14.2 H, Absolute Lymphs (auto) 1.26, Nucleated RBC % 0.4, PT Cancelled, INR Cancelled, APTT Cancelled, Sodium 142, Potassium 6.1 H*, Chloride 121 H, Carbon Dioxide 4.0 L*, Anion Gap 18 H, BUN 158 H*, Creatinine 7.93 H*, Est GFR (MDRD) Af Amer 6 L, Est GFR (MDRD) Non-Af 5 L, BUN/Creatinine Ratio 19.9, Glucose 69 L, Lactic Acid 0.8, Calcium 8.4 L, Total Bilirubin 0.30, AST 22, ALT 18, Alkaline Phosphatase 97, Total Protein 6.5, Albumin 2.8 L, Globulin 3.7, Albumin/Globulin Ratio 0.8 L Micro: Microbiology 05/01/24 13:10 Mucosa - Nose SARS-CoV-2, Influenza & RSV (PCR) - Final ABG Data ABG results: ABG 05/01/24 13:12 Specimen Type BEAR Sample Site Not entered O2 % 21.0 VBG pH 7.02 L* VBG pO2 199 H VBG Total CO2 < 5 L VBG O2 Sat (Calc) 99 H VBG Base Excess -27 L POC Mix VBG pCO2 Pt Tmp 14.1 L* O2 Delivery Device Not entered Crit Call To/Read Back Yes Blood Gas Notified Whom carson Blood Gas Notified Time 13:13:56 Imaging Radiology Impression Chest X-Ray 05/01/24 13:35 IMPRESSION: There is a right subclavian line coiled in the region of the right subclavian vein. Electronically Signed: Jerod Michael MD at 14:22 EST Reading Location ID and State: [facility] / [place] , Service support , Assessment & Plan Assessment/Plan (1) Shock: PLAN: Plan # Shock-suspect septic shock -Patient presented with respiratory failure, renal failure, hypotension and had elevated white blood cell count with left shift -Patient given 30 cc/kg bolus in the ED and required right IJ placement and Levophed administration, continue maintenance fluids for now -Given patient's allergies and suspected pulmonary versus urine source patient started on vancomycin and Levaquin -Will continue broad-spectrum antibiotics -Urine culture and blood culture sent -Will obtain respiratory panel and sputum culture if able especially given report of thick green secretions during intubation -Additionally patient with overt diarrhea appreciated in diaper she is wearing -Will send stool studies -Rubber Turner consult # Acute kidney failure on CKD stage IIIb with metabolic acidosis and hyperkalemia -Baseline creatinine around 1.5, creatinine in the ED 7.93 with a BUN of 158 -Ahuja placed -Daily weights, I's and O's -Consult nephrology -Repeat BMP now that patient received sepsis fluids # Acute hypoxic respiratory failure -Patient required intubation in the ED and was found at home to be 65% on room air and placed on 15 L of nonrebreather at the squad -Per ED physician patient had thick green secretions during intubation so query if there may be a pneumonia not overt on the chest x-ray -Covering with antibiotics as above -Rubber Turner consult as above #GERD -Continue PPI but will make IV # History of chronic heart failure with preserved ejection fraction -Hold home Lasix #Hypertension -Hold home medications at this time given patient is in shock and on Levophed #Hypothyroidism -Continue Synthroid #DVT ppx: Lovenox subcu Bernarda Becerril MD Charges/Coding Visit Charges Inpatient E&M: 39055 Init Hosp L2
[2024-05-01 14:43] LABS: Mucous, Urine 0 SEEN /hpf (<or=2+)
[2024-05-01] MEDS: Norepinephrine 8 MG in 0.9% Normal Saline (250mL Bag) 242 ML 9.4 MG CONT INF (14:44)
[2024-05-01 14:45] LABS: Color, Urine Yellow (Yellow); Glucose, Dipstick Normal (Normal); Ketone-Dipstick 5 mg/dl (Negative); Leukocyte Esterase-Dipstick 500 /ul (Negative); Nitrite-Dipstick Negative (Negative); Occult Blood-Urine 150 /ul (Negative); Protein-Dipstick 100 mg/dl (Negative); Urine Clarity Cloudy (Clear); Urine Urobilinogen Normal (Normal)
[2024-05-01] MEDS: levoFLOXacin IV 750 MG/150 ML BAG 100 MG IV (14:45)
[2024-05-01 14:51] LABS: Urine Bilirubin Dipstick 1 mg/dL (Negative)
[2024-05-01] MEDS: fentaNYL drip 100 ML 5 MCG CONT INF (14:54)
[2024-05-01 15:04] LABS: Red Blood Cells-Urine 5-10 SEEN /hpf (0-5); Squamous Epithelial Cells - UA 5-10 SEEN /hpf (5-10); Transitional Epithelial - Ur 0-5 SEEN /hpf (0-5); White Blood Cells 50-100 SEEN /hpf (0-5)
[2024-05-01 15:05] LABS: Bacteria 3+ /hpf (None Seen); Renal Epithelial Cells 25-50 SEEN /hpf (0-5)
[2024-05-01] MEDS: Vancomycin HCl 1,500 MG in 0.9% Normal Saline (500mL Bag) 500 ML 250 MG IV (15:20)
[2024-05-01] MEDS: fentaNYL 100 MCG/2 ML Ampul IV (15:35)
--- NOTE | 2024-05-01 15:47 | PN.HOSP_ITS ---
Hospitalist Note Spoke with patient's son Aime who lives in [place], he reports he is aware she is in the hospital and intubated and that her roommate Cayla kept him updated, when asked what happened leading up to this he noted he was told that she had flulike symptoms over the past couple days but that He would be the 1 that would have the information and that she would be the best person to contact at this time. Contacted patient's friend/roommate Cayla and she reports that late early Thursday she began having vomiting and diarrhea with increased weakness and was unable to even keep down tea, this progressed and this morning she was barely responsive and would wake up and answer questions minimally and inappropriately. She had been concerned that maybe she was developing a UTI as she has a history of these but notes chronic incontinence and she wears a diaper. She also noted that she has a history of gastric bypass in 2004. Did not report that she was complaining of any productive cough or shortness of breath per se, reports that she had not said anything about any abdominal pain and was primarily the vomiting and diarrhea with very poor p.o. intake. Asked about CODE STATUS and if patient had expressed any wishes to her previously, she said she thinks she would want chest compressions and to be kept alive but is unsure and notes she has a living will on file. Living will is reviewed but this applies to terminal conditions and permanent unconscious state and not present situation. Of note patient had 2 full code verified status is in 2023 with the most recent one in February.
[2024-05-01 16:14] LABS: International Normalized Ratio 1.3; Prothrombin Time (Protime)PT. 16.2 SECONDS (11.7-14.9)
[2024-05-01 16:15] LABS: Partial Thromboplast Time 31.2 Seconds (24.1-36.2)
[2024-05-01 16:21] LABS: Base Excess -29 mmol/L (-2 to +2); Bicarbonate 4.4 mmol/L (22-26); Blood Gas Specimen Type ART; Comment AC VC 14 450 +5 45%; Mode AC; O2 Delivery Device Adult Vent; PO2 172 mmHG (75-100); SITE R Brach; SO2 98 % (95-99); Total Carbon Dioxide 5 mmol/L; pCO2 22.2 mmHg (35-45)
--- NOTE | 2024-05-01 16:24 | CPS ---
Critical values verified times two. Showed results to ICU RT.
[2024-05-01 16:29] LABS: Anion Gap 15 (5-15); BUN 148 mg/dL (7-18); BUN/Creat Ratio 20.2 RATIO (10-20); Calcium,Total 7.7 mg/dL (8.5-10.1); Chloride 124 mmol/L (98-107); Creatinine, Serum 7.33 mg/dL (0.55-1.02); EST Glomerular Filtration Rate 6 mL/min (>60); Est Glom Filt Rate - Afr Amer 7 mL/min (>60); Estimated Creatinine Clearance 6.59 ml/min; Glucose 82 mg/dL (74-106); Potassium 5.4 mmol/L (3.5-5.1); Sodium Level 144 mmol/L (136-145)
[2024-05-01] MEDS: 0.9% Normal Saline (1000mL) 1,000 ML 75 ML IV (17:24)
--- NOTE | 2024-05-01 17:40 | PCM.RX.CS ---
Consult Antibiotic Management Pharmacy has been consulted to manage selected antibiotic: Vancomycin Type of Intervention Type of Consult: New start Suspected Infection Suspected Infection: Pneumonia Prior Doses of Antibiotics Prior Doses of Antibiotics Received/Current Regimen: 05/01/24 @ 1520 patient received 1500mg of VAncomycin x1 Labs Labs: Sodium 144 mmol/L (136-145) 05/01/24 15:50 Potassium 5.4 mmol/L (3.5-5.1) H 05/01/24 15:50 Chloride 124 mmol/L (98-107) H 05/01/24 15:50 Carbon Dioxide 5.0 mmol/L (21.0-32.0) L* 05/01/24 15:50 Anion Gap 15 (5-15) 05/01/24 15:50 BUN 148 mg/dL (7-18) H* 05/01/24 15:50 Creatinine 7.33 mg/dL (0.55-1.02) H 05/01/24 15:50 Est GFR (MDRD) Af Amer 7 mL/min (>60) L 05/01/24 15:50 Est GFR (MDRD) Non-Af 6 mL/min (>60) L 05/01/24 15:50 BUN/Creatinine Ratio 20.2 RATIO (10-20) H 05/01/24 15:50 Glucose 82 mg/dL (74-106) 05/01/24 15:50 Microbiology Microbiology: Microbiology 05/01/24 14:40 Urine Catheter - Ahuja Legionella Antigen - Final 05/01/24 14:40 Urine Catheter - Ahuja Streptococcus pneumoniae Antigen (M - Final 05/01/24 13:10 Mucosa - Nose SARS-CoV-2, Influenza & RSV (PCR) - Final Dosing Weight Weight used for dosin kg Estimated Creatinine Clearance Estimated Creatinine Clearance: 7 Goal Trough Goal Trough: 15-20 mcg/mL Pharmacy Plan for Drug Dosing Pharmacy Plan for Drug Dosing: Vancomycin random level is ordered for 05/03 @ 0600 Pharmacy Service will continue to monitor and adjust dosing as required. Date/Time Labs Ordered Labs to be done on [date and time ordered]: 05/03/24 @ 0600
[2024-05-01] MEDS: Sodium Bicarbonate 150 MEQ in Dextrose 5%-Water (1000mL Bag) 1,000 ML IV (18:36)
--- NOTE | 2024-05-01 18:39 | CON.PCM.CC_ITS ---
HPI Consult Data Date of Consult: 05/01/24 HPI Narrative HPI Narrative: HPI from Dr. Becerril Mrs Vega is a 83-year-old female with a history of stage I diastolic dysfunction, GERD, hypertension, hypothyroidism, TADEO presented to [facility] ED 05/01/2024 with altered mental status and was hypotensive.Patient has a history of nausea and diarrhea. She had ABG which revealed pH of 7.02 with a CO2 of less than 5 and bicarb still pending, white blood cell count of 17 with hemoglobin of 9.7, patient also with potassium of 6.1, bicarb of 4 with an anion gap of 18 and she was found to be in acute renal failure with a BUN of 158 and a creatinine of 7.93. Patient intubated and had right IJ placed, she was given vancomycin, Levaquin, IV fluids and given continued hypotension started on Levophed Patient was started on bicarb gtt. Patient was seen by neprology. Lines - right IJ central Tubes- ETT, do , OG Gtts- levophed 30 mcg [facility] Medical History Hypothyroidism Elevated parathyroid hormone Osteoporosis Morbid obesity with BMI of 45.0-49.9, adult Osteoarthritis Venous insufficiency of both lower extremities Diastolic dysfunction Pulmonary hypertension Metabolic acidosis Macrocytic anemia Lymphedema Preop cardiovascular exam H/O hemorrhoids Cholecystectomy planned Spinal cord stimulator status (HFpEF) heart failure with preserved ejection fraction History of pulmonary embolus (PE) COVID-19 (01/19/21) MRSA (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 Abdominal pain History of back problems Chronic kidney disease DVT (deep venous thrombosis) GERD (gastroesophageal reflux disease) Insomnia Obstructive sleep apnea Essential (primary) hypertension Chronic obstructive airway disease with asthma Incomplete left bundle branch block Home Medications ?Medication ?Instructions ?Recorded ?Last Taken ?Type omeprazole 20 mg capsule,delayed 20 mg PO DAILY reflux 11/13/17 02/24/24 History release glucosamine 500 1 cap PO TID supplement 10/17/19 02/24/24 History mj-osriugcpv-yqwdzmca comp 400 mg-D3 667 unit-C-Mn cap hydrocortisone-pramoxine 2.5 %-1 % 1 applic ID BID . 10/17/19 Unknown History (4g) rectal cream cholecalciferol (vitamin D3) 25 50 mcg PO DAILY supplement 07/25/21 Unknown History mcg (1,000 unit) capsule levonorgestrel (Mirena) 1 mcg intrauterine ONCE . 07/25/21 Unknown History vitamin E mixed 400 unit capsule 400 unit PO DAILY supplement 07/25/21 02/24/24 History pyridoxine (vitamin B6) 100 mg 100 mg PO DAILY supplement 12/19/21 Unknown History tablet (Vitamin B-6) acetaminophen 500 mg tablet 1,000 mg PO Q8H pain 06/27/22 Unknown History gabapentin 300 mg capsule 300 mg PO TID nerve pain 06/27/22 02/24/24 History magnesium oxide 200 mg PO DAILY supplement 06/27/22 02/24/24 History multivitamin 1 tab PO DAILY supplement 06/27/22 02/24/24 History nitroglycerin 0.4 mg sublingual 0.4 mg sublingual Q5M PRN chest 06/27/22 Unknown Rx tablet pain #30 tabs lisinopril 10 mg tablet 10 mg PO DAILY blood pressure 06/07/23 Unknown History vibegron 75 mg tablet (Gemtesa) 75 mg PO DAILY overactive bladder 06/07/23 02/24/24 History polyethylene glycol 3350 17 gram 17 g PO DAILY bowel mobility #30 ea 06/09/23 02/24/24 Rx oral powder packet fluorometholone 0.1 % eye 1 drp ophthalmic (eye) BID eyes 02/24/24 02/24/24 History drops,suspension furosemide 20 mg tablet 60 mg PO DAILY water retention 02/24/24 Unknown History zinc acetate 25 mg (zinc) capsule 50 mg PO TID supplement 02/24/24 02/24/24 History ascorbic acid (vitamin C) 500 mg 1,000 mg (2 x 500 mg) PO 03/01/24 Unknown Rx tablet DAILYCM@1200 #60 tabs aspirin 81 mg chewable tablet 81 mg PO BID #38 tabs 03/01/24 Unknown Rx calcium carbonate 500 mg (2.5 x 200 mg calcium (500 03/01/24 Unknown Rx mg)) PO TIDCM #90 tabs cyclobenzaprine 10 mg tablet 10 mg PO TID PRN Muscle Spasm #30 03/01/24 Unknown Rx tabs doxycycline monohydrate 100 mg 100 mg PO BID #10 caps 03/01/24 Unknown Rx capsule ferrous sulfate 325 mg (65 mg 325 mg PO DAILY@1200 #30 tabs 03/01/24 Unknown Rx iron) tablet (FeroSul) hydrocortisone 2.5 % topical 1 applic topical BID PRN PRN 03/01/24 Unknown Rx ointment RASH/TOPICAL IRRITATION #1 tube levothyroxine 125 mcg tablet 125 mcg PO DAILY thyroid #30 tabs 03/01/24 Unknown Rx oxycodone 5 mg tablet 5 mg PO Q4H PRN PRN pain 1-10 7 03/01/24 Unknown Rx days #35 tabs sennosides 8.6 mg-docusate sodium 2 tab PO BID #120 tabs 03/01/24 Unknown Rx 50 mg tablet (Stimulant Laxative Plus) zolpidem 5 mg tablet 5 mg PO QHS #30 tabs 03/01/24 Unknown Rx Allergy/AdvReac Type Severity Reaction Status Date / Time cefazolin (From Kefzol) Allergy Severe hives/difficulty Verified 05/01/24 13:06 swallowing ibuprofen Allergy Unknown Rash Verified 05/01/24 13:06 peanut Allergy Anaphylaxis Verified 05/01/24 13:06 Sulfa (Sulfonamide Allergy Unknown Verified 05/01/24 13:06 Antibiotics) sulfamethoxazole (From Allergy Other Verified 05/01/24 13:06 Bactrim) trimethoprim (From Bactrim) Allergy Other Verified 05/01/24 13:06 Family History Mother Cancer uterine Family History unable to obtain Surgical History History of left heart catheterization (08/01/22) History of dilatation and curettage History of hysteroscopy History of bilateral knee replacement History of herniorrhaphy Status post debridement History of open reduction and internal fixation (ORIF) procedure H/O hemorrhoidectomy History of gastric bypass Social History household members: other details: She has a roomate housing: house number of children: 1 current occupational status: retired pets and animals: Yes pets and animals: dog(s) Smoking Status: Never smoker alcohol intake: never substance use type: does not use caffeine: Yes Type: coffee Number of servings: 3 ROS ROS Narrative unable to take give acuity of condition. Review of Systems ROS Unobtainable: due to encephalopathy Objective Data Objective Data Vital Signs: Vital Signs Last response 3 Temperature 34.7 C L 05/01/24 18:00 Temperature Source Core 05/01/24 18:00 Pulse Rate 81 05/01/24 18:00 Respiratory Rate 13 05/01/24 18:00 Respiratory Effort Mechanically Ventilated 05/01/24 16:52 Respiratory Depth Shallow 05/01/24 12:23 Respiratory Pattern Normal 05/01/24 15:30 Blood Pressure 117/54 L 05/01/24 18:00 Blood Pressure Mean 75 05/01/24 18:00 Blood Pressure Source Monitor 05/01/24 18:00 Blood Pressure Position Semi-Fowlers 05/01/24 18:00 Blood Pressure Location Right Arm 05/01/24 18:00 Pulse Ox 100 05/01/24 18:00 Oxygen Delivery Method Mechanical Ventilator 05/01/24 18:00 Fraction of Inspired Oxygen (FIO2) 40 05/01/24 18:00 I&O: I&O Last 24 Hours 3 04/30/24 05/01/24 05/01/24 23:59 11:59 23:59 Intake Total 3908.65 / 3908.65 Balance 3908.65 / 3908.65 I&O: Total Stay 3 05/01/24 12:20 thru 05/01/24 18:07 Intake Total 3908.65 Balance 3908.65 Current Meds Ordered / Administered: Current meds ordered / Administered 3 Generic Name Dose Route Start Last Admin Trade Name Freq PRN Reason Stop Dose Admin Albuterol Sulfate 2.5 mg 05/01/24 17:06 Albuterol 2.5 Mg/3 Ml Vial.Neb. INHALATION Q2H PRN PRN SOB &/OR WHEEZING Fentanyl 100 mls @ 2.5 mls/hr 05/01/24 13:35 05/01/24 18:00 CONT INF 150 mcg/hr UD VALERIO 15 mls/hr Titration Protocol 25 MCG/HR Norepinephrine Bitartrate 8 mg 250 mls @ 9.375 mls/hr 05/01/24 14:05 05/01/24 18:00 / Sodium Chloride CONT INF 05/02/24 16:44 30 mcg/min .[id number] ONE 56.3 mls/hr Titration Protocol 5 MCG/MIN Vancomycin IV-PHARMACY TO DOSE 500 mls @ 250 mls/hr 05/01/24 17:06 1 each/ Sodium Chloride IV X1 PRN Rx to Dose Protocol Pantoprazole Sodium 40 mg/ 110 mls @ 330 mls/hr 05/02/24 10:00 Sodium Chloride IV Q24 VALERIO Vasopressin 20 units/ Sodium 25 mls @ 3 mls/hr 05/01/24 17:35 Chloride CONT INF .Q8H20M [facility] 0.04 UNITS/MIN Levofloxacin 500 mg in 100 mls @ 100 mls/hr 05/03/24 10:00 Levaquin Iv IV Q48 [facility] Sodium Bicarbonate 150 meq/ 1,150 mls @ 150 mls/hr 05/01/24 17:55 05/01/24 18:36 Dextrose IV 150 mls/hr .Q7H40M [facility] Administration Levothyroxine Sodium 125 mcg 05/02/24 06:00 Levothyroxine 125 Mcg Tablet PO DAILY@0600 VALERIO Melatonin 3 mg 05/01/24 17:06 Melatonin 3 Mg Tablet PO QHS PRN PRN INSOMNIA Ondansetron HCl 4 mg 05/01/24 17:06 Ondansetron 4 Mg/2 Ml Vial IV Q8H PRN PRN NAUSEA/VOMITING Vancomycin Protocol 1 lab 05/03/24 04:00 Vancomycin Trough/Random Due MC 05/03/24 08:00 DAILY [facility] Physical Exam Const General Appearance: patient mechanically ventilated HEENT normocephalic and head/scalp atraumatic Head and Scalp: normal to inspection Mouth: oral and palatal mucosa normal and lips normal Eyes PERRL General Eye: normal appearance of both eyes Pupil: PERRL Neck full ROM Resp Effort and Inspection: audible wheezes Auscultation: rales and diminished lung sounds Cardio regular rate, regular rhythm, S1 normal heart sound and S2 normal heart sound GI Auscultation: normoactive bowel sounds Skin no rashes or lesions noted Lab / Micro Data 05/01/24 12:49 05/01/24 15:50 Labs: Laboratory Results - last 24 hr 05/01/24 12:49: WBC 17.0 H, RBC 3.00 L, Hgb 9.7 L, Hct 30.5 L, MCV 101.7 H, MCH 32.3 H, MCHC 31.8 L, RDW Std Deviation 61.4 H, RDW Coeff of Parris 16.6 H, Plt Count 286, MPV 12.8 H, Immature Gran % (Auto) 1.100 H, Neut % (Auto) 83.3 H, L ymph % (Auto) 7.4 L, Dickinson % (Auto) 7.5, Eos % (Auto) 0.4, Baso % (Auto) 0.3, A bsolute Neuts (auto) 14.2 H, Absolute Lymphs (auto) 1.26, Nucleated RBC % 0.4, PT Cancelled, INR Cancelled, APTT Cancelled, Sodium 142, Potassium 6.1 H*, C hloride 121 H, Carbon Dioxide 4.0 L*, Anion Gap 18 H, BUN 158 H*, Creatinine 7.93 H*, Est GFR (MDRD) Af Amer 6 L, Est GFR (MDRD) Non-Af 5 L, BUN/Creatinine Ratio 19.9, Glucose 69 L, Lactic Acid 0.8, Calcium 8.4 L, Total Bilirubin 0.30, AST 22, ALT 18, Alkaline Phosphatase 97, Total Protein 6.5, Albumin 2.8 L, Globulin 3.7, Albumin/Globulin Ratio 0.8 L 05/01/24 14:40: Urine Color Yellow, Urine Clarity Cloudy, Urine pH 5.0, Ur Specific [place] 1.020, Urine Protein 100 H, Urine Glucose (UA) Normal, Urine Ketones 5 H, Urine Occult Blood 150 H, Urine Nitrite Negative, Urine Bilirubin 1 H, Urine Urobilinogen Normal, Ur Leukocyte Esterase 500 H, Urine RBC 5-10 SEEN, Urine WBC 50-100 SEEN, Ur Squamous Epith Cells 5-10 SEEN, Ur Transition Epith Cell 0-5 SEEN, Ur Renal Epithelial Cell 25-50 SEEN, Urine Bacteria 3+, Urine Mucus 0 SEEN 05/01/24 15:50: PT 16.2 H, INR 1.3, APTT 31.2, Sodium 144, Potassium 5.4 H, C hloride 124 H, Carbon Dioxide 5.0 L*, Anion Gap 15, BUN 148 H*, Creatinine 7.33 H, Estim Creat Clear Calc 6.59, Est GFR (MDRD) Af Amer 7 L, Est GFR (MDRD) Non- Af 6 L, BUN/Creatinine Ratio 20.2 H, Glucose 82, Calcium 7.7 L Micro: Microbiology 05/01/24 14:40 Urine Catheter - Do Legionella Antigen - Final 05/01/24 14:40 Urine Catheter - Do Streptococcus pneumoniae Antigen (M - Final 05/01/24 13:10 Mucosa - Nose SARS-CoV-2, Influenza & RSV (PCR) - Final ABG Data ABG results: ABG 05/01/24 05/01/24 13:12 16:16 Specimen Type BEAR ART Sample Site Not entered R Brach pH 6.90 L* Bicarbonate Actual 4.4 L Total CO2 5 Base Excess -29 L O2 Saturation 98 O2 % 21.0 45.0 ABG pCO2 22.2 L ABG pO2 172 H Alfredo Test N/A VBG pH 7.02 L* VBG pO2 199 H VBG Total CO2 < 5 L VBG O2 Sat (Calc) 99 H VBG Base Excess -27 L POC Mix VBG pCO2 Pt Tmp 14.1 L* O2 Delivery Device Not entered Adult Vent Vent Mode AC Crit Call To/Read Back Yes Yes Blood Gas Notified Whom carson Blood Gas Notified Time 13:13:56 Clinical Comments AC VC 14 450 +5 45% Imaging Radiology Impression Chest X-Ray 05/01/24 13:35 IMPRESSION: There is a right subclavian line coiled in the region of the right subclavian vein. Electronically Signed: Jerod Michael MD at 14:22 EST , Chest X-Ray 05/01/24 14:10 IMPRESSION: Right internal jugular line. Tip in the right atrium. No pneumothorax. Electronically Signed: Jerod Michael MD at 15:02 EST , Assessment and Plan . Assessment and plan: Septic shock Acute on chronic renal failure Acute metabolic acidosis Hyperkalemia Acute hypoxic respiratory failure GERD Heart failure with reduced ejection fraction - patient was intubated secondary to shock - started on pressors to make sure MAP > 65 - started on vancomycin and levaquin - follow up cultures - consult to nephrology - will likely need dialysis - BMP q 4 hours to monitor K - agree with bicarb gtt - measure UOP carefully - DVT ppx - consider switching to heparin from lovenx given JOSE Critical Care Time: 60 min The entirety of this encounter was done via Telemedicine
[2024-05-01] MEDS: Vasopressin 20 UNITS in 0.9% Normal Saline (50mL Bag) 24 ML 3 UNITS CONT INF ×2 (19:30→23:43)
[2024-05-01] MEDS: Norepinephrine 8 MG in 0.9% Normal Saline (250mL Bag) 242 ML 56.3 MG CONT INF (20:00)
[2024-05-01] MEDS: Propofol 10MG/Ml 1,000 MG/100 ML Bottle 6.4 MG CONT INF (21:30)
[2024-05-01] MEDS: fentaNYL drip 100 ML 7.5 MCG CONT INF (21:40)
[2024-05-01] MEDS: Heparin Injection (Vial) 5,000 UNIT/ML VIAL 5000 UNIT SC (21:51)
[2024-05-01] MEDS: 0.9% Saline Lock 10 ML Syringe IV (21:56)
[2024-05-01] MEDS: Chlorhexidine 15 ML PO (21:57)
[2024-05-01 22:03] LABS: CPK Total, Creatine Kinase 487 U/L (26-192); Triglycerides 182 mg/dL
[2024-05-01 22:04] LABS: Anion Gap 15 (5-15); BUN 144 mg/dL (7-18); BUN/Creat Ratio 19.3 RATIO (10-20); Calcium,Total 7.5 mg/dL (8.5-10.1); Chloride 122 mmol/L (98-107); Creatinine, Serum 7.48 mg/dL (0.55-1.02); EST Glomerular Filtration Rate 6 mL/min (>60); Est Glom Filt Rate - Afr Amer 7 mL/min (>60); Estimated Creatinine Clearance 6.52 ml/min; Glucose 144 mg/dL (74-106); Potassium 5.1 mmol/L (3.5-5.1); Sodium Level 143 mmol/L (136-145)
[2024-05-01 22:54] LABS: Base Excess -26 mmol/L (-2 to +2); Blood Gas Specimen Type ART; Mode AC/PC; O2 Delivery Device Adult Vent; PEEP 5; PO2 144 mmHG (75-100); RR 16; SITE L Radial; SO2 98 % (95-99); Time Given 22:51:06; Total Carbon Dioxide < 5 mmol/L; pCO2 12.9 mmHg (35-45)
--- NOTE | 2024-05-01 22:59 | PCM.HOSP.N ---
Hospitalist Note Adjustments made to patient vent settings, still despite this repeat ABG not markedly improved. pH 7.10 now but bicarb decreasing despite drip. Will administer an additional 2 amp of bicarb at this time. Discussed this with Dr. Beebe Nephrology and he agreed with additional amps bicarb, will increase drip rate, will plan for repeat renal panel per Dr. Beebe at 3:30 am. If not improving then may more urgently need CRRT otherwise he notes plan for am catheter placement and CRRT.
[2024-05-01] MEDS: Sodium Bicarbonate 8.4% 50 ML Syringe 50 MEQ IV ×2 (23:31)
[2024-05-02] VITALS (54 sets, daily range): BP systolic 100–148; BP diastolic 43–83; PULSE 79–121; RESP 13–22; TEMP 36.4–38.3; O2SAT 92–100; BMI 47.4; BMI 47.5
[2024-05-02] MEDS: Norepinephrine 8 MG in 0.9% Normal Saline (250mL Bag) 242 ML 56.3 MG CONT INF ×2 (00:25→05:00)
--- NOTE | 2024-05-02 01:13 | EKG12_ITS ---
Test Reason : UNRESPONSIVE Blood Pressure : */* mmHG Vent. Rate : 94 BPM Atrial Rate : 94 BPM P-R Int : 166 ms QRS Dur : 104 ms QT Int : 352 ms P-R-T Axes : 78 11 165 degrees QTcB Int : 440 ms Normal sinus rhythm with sinus arrhythmia Low voltage QRS ST & T wave abnormality, consider lateral ischemia Abnormal ECG Confirmed by MARY JACK, SISI ([id number]), book editor EMILY HUTSON ([id number]) on 05/04/2024 7:55:32 AM Referred By: Bernarda Becerril Confirmed By: SISI HERNANDEZ MD
--- NOTE | 2024-05-02 01:22 | EKG12_ITS ---
Test Reason : Blood Pressure : */* mmHG Vent. Rate : 108 BPM Atrial Rate : 108 BPM P-R Int : 144 ms QRS Dur : 96 ms QT Int : 338 ms P-R-T Axes : 30 -4 168 degrees QTcB Int : 452 ms Sinus tachycardia with Premature supraventricular complexes Low voltage QRS ST & T wave abnormality, consider lateral ischemia Abnormal ECG Confirmed by KATHERINE JACK, CARMINE ([id number]), department editor EMILY HUTSON ([id number]) on 05/09/2024 1:56:57 PM Referred By: Bernarda Becerril Confirmed By: CARMINE MURPHY MD
--- NOTE | 2024-05-02 01:35 | EKG12_ITS ---
Test Reason : ARRYTH Blood Pressure : */* mmHG Vent. Rate : 116 BPM Atrial Rate : * BPM P-R Int : * ms QRS Dur : 98 ms QT Int : 336 ms P-R-T Axes : * -1 179 degrees QTcB Int : 467 ms Sinus rhythm with PAC's and short run of NSVT Low voltage QRS T wave abnormality, consider lateral ischemia Abnormal ECG When compared with ECG of 02-May-2024 01:23, MANUAL COMPARISON REQUIRED DATA IS UNCONFIRMED Confirmed by MARY JACK, SISI ([id number]), editor managing newspaper RICH GALLARDO ([id number]) on 05/03/2024 9:07:05 AM Referred By: Bernarda Becerril Confirmed By: SISI HERNANDEZ MD
--- NOTE | 2024-05-02 01:35 | EKG12_ITS ---
Test Reason : ARRYTH Blood Pressure : */* mmHG Vent. Rate : 113 BPM Atrial Rate : 113 BPM P-R Int : 162 ms QRS Dur : 100 ms QT Int : 368 ms P-R-T Axes : 35 -1 158 degrees QTcB Int : 504 ms Critical Test Result: Arrhythmia Sinus tachycardia with frequent and consecutive Premature ventricular complexes Low voltage QRS Cannot rule out Anterior infarct , age undetermined ST & T wave abnormality, consider lateral ischemia Abnormal ECG When compared with ECG of 02-May-2024 01:22, MANUAL COMPARISON REQUIRED DATA IS UNCONFIRMED Confirmed by MARY JACK, SISI ([id number]), editor map RICH GALLARDO ([id number]) on 05/03/2024 9:07:30 AM Referred By: Bernarda Becerril Confirmed By: SISI HERNANDEZ MD
[2024-05-02] MEDS: Sodium Bicarbonate 150 MEQ in Dextrose 5%-Water (1000mL Bag) 1,000 ML 175 MEQ IV ×2 (01:50→09:05)
[2024-05-02 01:51] LABS: Magnesium 2.2 mg/dL (1.6-2.6); Phosphorus 9.9 mg/dL (2.5-4.9)
[2024-05-02] MEDS: CHLORHEXIDINE GLUC 2% CLOTH 1 EACH TOWELETTE TOPICAL (02:55)
[2024-05-02 03:16] LABS: Absolute Neutrophil Count 11.5 X10^3/uL (2.0-7.7); Basophil# 0.02 X10^3/uL; Basophil% 0.1 % (0-1); Eosinophil# 0.03 X10^3/uL; Eosinophils% 0.2 % (0-5); Hematocrit 27.4 % (37-47); Hemoglobin 8.7 g/dL (12.0-15.0); Lymphocyte % 5.8 % (19-41); Mean Corp Hgb Conc 31.8 g/dL (32-36); Mean Corpuscular Hgb 31.8 pg (27.0-32.0); Mean Platelet Vol. 12.2 fl (6.2-12.0); Monocyte# 1.31 X10^3/uL; Monocyte% 9.5 % (0-10); NRBC Flagged by Analyzer 0.5 % (0-5); Neutrophil # 11.48 X10^3/uL (2.7-7.7); Neutrophil % 83.7 % (47-70); Platelet Count 266 K/mm3 (150-450); RBC Distribution Width CV 16.3 % (11.6-14.6); RBC Distribution Width SD 59.3 fl (35.1-43.9); Red Blood Count 2.74 M/mm3 (4.2-5.4); White Blood Count 13.7 K/mm3 (4.4-11.0)
[2024-05-02] MEDS: Amiodarone 150 MG in Dextrose 5%-Water (100mL Bag) 100 ML 600 MG IV BOLUS (03:40)
[2024-05-02 03:50] LABS: Magnesium 1.7 mg/dL (1.6-2.6); Phosphorus 7.9 mg/dL (2.5-4.9)
[2024-05-02] MEDS: Amiodarone 360 MG in Dextrose 5% Viaflo Bag 192.8 ML 16.7 MG CONT INF ×2 (03:55→16:08)
[2024-05-02 04:32] LABS: Albumin, Serum 2.3 g/dL (3.2-5.0); BUN 140 mg/dL (7-18); BUN/Creat Ratio 19.4 RATIO (10-20); Calcium,Total 7.3 mg/dL (8.5-10.1); Chloride 118 mmol/L (98-107); Creatinine, Serum 7.23 mg/dL (0.55-1.02); EST Glomerular Filtration Rate 6 mL/min (>60); Est Glom Filt Rate - Afr Amer 7 mL/min (>60); Estimated Creatinine Clearance 6.75 ml/min; Glucose 191 mg/dL (74-106); Phosphorus 8.1 mg/dL (2.5-4.9); Sodium Level 145 mmol/L (136-145)
[2024-05-02 05:48] LABS: Base Excess -17 mmol/L (-2 to +2); Bicarbonate 8.8 mmol/L (22-26); Blood Gas Specimen Type ART; Mode AC/PC; O2 Delivery Device Adult Vent; PEEP 5; PO2 100 mmHG (75-100); RR 16; SITE L Radial; SO2 98 % (95-99); Total Carbon Dioxide 9 mmol/L; pCO2 16.1 mmHg (35-45); pH 7.35 (7.35-7.45)
[2024-05-02] MEDS: Levothyroxine 125 MCG Tablet PO (06:02)
[2024-05-02] MEDS: Heparin Injection (Vial) 5,000 UNIT/ML VIAL 5000 UNIT SC ×2 (06:02→13:36)
--- NOTE | 2024-05-02 07:06 | PN.HOSP_ITS ---
Reason for Visit Reason for Visit: Diagnoses Shock, unspecified (05/01/24) Subjective Subjective Patient is an 83-year-old lady who was admitted with altered mental status. Patient was found to be in acute respiratory failure resulting in patient being intubated in the ED. An assessment of septic shock as well as acute kidney injury with severe metabolic acidosis made admitted to the intensive care unit for further management Objective Data Objective Data Vital Signs: Vital Signs Temp Pulse Resp BP Pulse Ox O2 Del Method FiO2 100.6 F H 97 16 127/43 H 99 Mechanical Ventilator 21 05/02/24 06:00 05/02/24 07:00 05/02/24 07:00 05/02/24 07:00 05/02/24 07:00 05/02/24 06:00 05/02/24 06:00 Oxygen Delivery Method Mechanical Ventilator Weight: 109.6 kg Body Mass Index (BMI) 47.4 Intake & Output: Intake and Output for Last 24 Hours 04/30/24 05/01/24 05/02/24 23:59 23:59 23:59 Intake Total 4954.00 / 5013.60 1069.31 / 1069.31 Output Total 50 / 50 20 / 20 Balance 4904.00 / 4963.60 1049.31 / 1049.31 Lab / Micro Data 05/02/24 03:00 05/02/24 03:00 Labs: Laboratory Results - last 24 hr 05/01/24 12:49: WBC 17.0 H, RBC 3.00 L, Hgb 9.7 L, Hct 30.5 L, MCV 101.7 H, MCH 32.3 H, MCHC 31.8 L, RDW Std Deviation 61.4 H, RDW Coeff of Parris 16.6 H, Plt Count 286, MPV 12.8 H, Immature Gran % (Auto) 1.100 H, Neut % (Auto) 83.3 H, L ymph % (Auto) 7.4 L, Mcminn % (Auto) 7.5, Eos % (Auto) 0.4, Baso % (Auto) 0.3, A bsolute Neuts (auto) 14.2 H, Absolute Lymphs (auto) 1.26, Nucleated RBC % 0.4, PT Cancelled, INR Cancelled, APTT Cancelled, Sodium 142, Potassium 6.1 H*, C hloride 121 H, Carbon Dioxide 4.0 L*, Anion Gap 18 H, BUN 158 H*, Creatinine 7.93 H*, Est GFR (MDRD) Af Amer 6 L, Est GFR (MDRD) Non-Af 5 L, BUN/Creatinine Ratio 19.9, Glucose 69 L, Lactic Acid 0.8, Calcium 8.4 L, Total Bilirubin 0.30, AST 22, ALT 18, Alkaline Phosphatase 97, Total Protein 6.5, Albumin 2.8 L, Globulin 3.7, Albumin/Globulin Ratio 0.8 L 05/01/24 14:40: Urine Color Yellow, Urine Clarity Cloudy, Urine pH 5.0, Ur Specific [place] 1.020, Urine Protein 100 H, Urine Glucose (UA) Normal, Urine Ketones 5 H, Urine Occult Blood 150 H, Urine Nitrite Negative, Urine Bilirubin 1 H, Urine Urobilinogen Normal, Ur Leukocyte Esterase 500 H, Urine RBC 5-10 SEEN, Urine WBC 50-100 SEEN, Ur Squamous Epith Cells 5-10 SEEN, Ur Transition Epith Cell 0-5 SEEN, Ur Renal Epithelial Cell 25-50 SEEN, Urine Bacteria 3+, Urine Mucus 0 SEEN 05/01/24 15:50: PT 16.2 H, INR 1.3, APTT 31.2, Sodium 144, Potassium 5.4 H, C hloride 124 H, Carbon Dioxide 5.0 L*, Anion Gap 15, BUN 148 H*, Creatinine 7.33 H, Estim Creat Clear Calc 6.59, Est GFR (MDRD) Af Amer 7 L, Est GFR (MDRD) Non- Af 6 L, BUN/Creatinine Ratio 20.2 H, Glucose 82, Calcium 7.7 L 05/01/24 21:32: Sodium 143, Potassium 5.1, Chloride 122 H, Carbon Dioxide 6.0 L* , Anion Gap 15, BUN 144 H*, Creatinine 7.48 H*, Estim Creat Clear Calc 6.52, Est GFR (MDRD) Af Amer 7 L, Est GFR (MDRD) Non-Af 6 L, BUN/Creatinine Ratio 19.3, G lucose 144 H, Calcium 7.5 L, Phosphorus 9.9 H*, Magnesium 2.2, Total Creatine Kinase 487 H, Triglycerides 182 05/02/24 03:00: WBC 13.7 H, RBC 2.74 L, Hgb 8.7 L, Hct 27.4 L, MCV 100.0 H, MCH 31.8, MCHC 31.8 L, RDW Std Deviation 59.3 H, RDW Coeff of Parris 16.3 H, Plt Count 266, MPV 12.2 H, Immature Gran % (Auto) 0.700, Neut % (Auto) 83.7 H, Lymph % (Auto) 5.8 L, Mcminn % (Auto) 9.5, Eos % (Auto) 0.2, Baso % (Auto) 0.1, Absolute Neuts (auto) 11.5 H, Absolute Lymphs (auto) 0.80 L, Nucleated RBC % 0.5, Sodium 145, Potassium 4.0, Chloride 118 H, Carbon Dioxide 8.0 L*, BUN 140 H*, C reatinine 7.23 H, Estim Creat Clear Calc 6.75, Est GFR (MDRD) Af Amer 7 L, Est GFR (MDRD) Non-Af 6 L, BUN/Creatinine Ratio 19.4, Glucose 191 H, Calcium 7.3 L, Phosphorus 7.9 H 05/02/24 03:00: Phosphorus 8.1 H, Magnesium 1.7, Albumin 2.3 L Micro: Microbiology 05/01/24 16:20 Mucosa - Nasopharyngeal Respiratory Panel (PCR) - Final 05/01/24 15:30 Stool Clostridioides difficile (PCR) - Final 05/01/24 14:40 Urine Catheter - Ahuja Legionella Antigen - Final 05/01/24 14:40 Urine Catheter - Ahuja Streptococcus pneumoniae Antigen (M - Final 05/01/24 13:10 Mucosa - Nose SARS-CoV-2, Influenza & RSV (PCR) - Final ABG Data ABG results: ABG 05/01/24 05/01/24 05/01/24 13:12 16:16 22:49 Specimen Type BEAR ART ART Sample Site Not entered R Brach L Radial pH 6.90 L* 7.10 L* Bicarbonate Actual 4.4 L 4.0 L Total CO2 5 < 5 Base Excess -29 L -26 L O2 Saturation 98 98 O2 % 21.0 45.0 30.0 ABG pCO2 22.2 L 12.9 L* ABG pO2 172 H 144 H Alfredo Test N/A N/A VBG pH 7.02 L* VBG pO2 199 H VBG Total CO2 < 5 L VBG O2 Sat (Calc) 99 H VBG Base Excess -27 L POC Mix VBG pCO2 Pt Tmp 14.1 L* Respiration Rate 16 O2 Delivery Device Not entered Adult Vent Adult Vent Vent Mode AC AC/PC POC PEEP 5 Crit Call To/Read Back Yes Yes Yes Blood Gas Notified Whom alli Gallardo Blood Gas Notified Time 13:13:56 22:51:06 Clinical Comments AC VC 14 450 +5 45% 05/02/24 05:42 Specimen Type ART Sample Site L Radial pH 7.35 Bicarbonate Actual 8.8 L Total CO2 9 Base Excess -17 L O2 Saturation 98 O2 % 21.0 ABG pCO2 16.1 L* ABG pO2 100 Alfredo Test N/A VBG pH VBG pO2 VBG Total CO2 VBG O2 Sat (Calc) VBG Base Excess POC Mix VBG pCO2 Pt Tmp Respiration Rate 16 O2 Delivery Device Adult Vent Vent Mode AC/PC POC PEEP 5 Crit Call To/Read Back Yes Blood Gas Notified Whom Dr Gallardo Blood Gas Notified Time 05:44:24 Clinical Comments Radiography Diagnostic Testing: Radiology Impression Chest X-Ray 05/01/24 13:35 IMPRESSION: There is a right subclavian line coiled in the region of the right subclavian vein. Electronically Signed: Jerod Michael MD at 14:22 EST , Chest X-Ray 05/01/24 14:10 IMPRESSION: Right internal jugular line. Tip in the right atrium. No pneumothorax. Electronically Signed: Jerod Michael MD at 15:02 EST , Physical Exam Narrative GENERAL: Patient on the vent HEENT: Atraumatic; normocephalic EYES; Anicteric, Normal Conjunctiva NECK; supple, normal thyroid, RESPIRATORY: Diminished to auscultation CARDIOVASCULAR: Regular S1 S2, GI: soft, normoactive bowel sounds, : No Renal angle tenderness; EXTREMITIES: No edema, no clubbing, MUSCULOSKELETAL: no muscle wasting NEURO: Unable to assess SKIN: No Rash Assessment & Plan Assessment/Plan (1) Shock: PLAN: Plan Patient is an 83-year-old lady who was admitted with altered mental status. Patient was found to be in acute respiratory failure resulting in patient being intubated in the ED. An assessment of septic shock as well as acute kidney injury with severe metabolic acidosis made admitted to the intensive care unit for further management 1. Shock-suspect septic shock -Patient presented with respiratory failure, renal failure, hypotension and had elevated white blood cell count with left shift . Patient given 30 cc/kg bolus in the ED and required right IJ placement and Levophed administration, patient was started on broad-spectrum antibiotic therapy with vancomycin and Levaquin #2. Acute cystitis ? Patient presented with septic shock management as discussed above 3. Acute hypoxic respiratory failure ? Patient was reported to be saturating 65% on room air was placed on 15 L nonrebreather by the squad without much improvement eventually intubated in the ED admitted to the intensive care unit initial vent settings written by admitting physician and subsequent management deferred to bar manager 4. Acute kidney injury ? Superimposed on chronic kidney disease stage IIIb with severe metabolic acidosis as well as hyperkalemia. Patient was treated with bicarb consultation placed to nephrology with plans for patient to undergo CRRT 5. Anemia ? Secondary to chronic disorder monitoring H&H and transfuse if patient becomes symptomatic or hemoglobin falls below 7 6. Chronic congestive heart failure with preserved ejection fraction ? Patient is on furosemide held on admission given her presentation 7. Essential hypertension ? Patient presented with septic shock antihypertensives held 8. Hypothyroidism ? Patient is on levothyroxine home dose continued 9. GERD ? Patient is a PPI 10. DVT prophylaxis ? Subcu heparin Time spent in the patient's overall evaluation,decision-making process, review of diagnostic data, adjustment of management, discussion with other providers, nursing nursing and ancillary staff involved in patient's care documentation, 55 Minutes Charges/Coding Visit Charges Inpatient E&M: [id number] [place] [id number]
[2024-05-02] MEDS: Chlorhexidine 15 ML PO ×2 (07:59→21:52)
[2024-05-02] MEDS: Pantoprazole Sodium 40 MG in 0.9% Normal Saline (100mL MB+) 100 ML 330 MG IV (07:59)
--- NOTE | 2024-05-02 07:59 | PN.CC_ITS ---
Assessment & Plan Assessment/Plan (1) Septic shock: (2) Acute renal failure: PLAN: Plan RECOMMENDATIONS: 1. Continue assist-control mode mechanical ventilation. 2. Continue current sedation regimen. 3. Initiate CRRT per nephrology recommendations. 4. Continue Levophed to maintain mean arterial pressure at or above 65 mmHg. 5. Continue empiric antimicrobials. 6. Continue to monitor H&H. Transfuse if hemoglobin drops below 7 g/dL. 7. Continue appropriate GI and DVT prophylaxis. 8. If stable tomorrow, we will plan to initiate tube feeding. IMPRESSIONS: 1. Acute hypoxemic respiratory failure Clinical concern for underlying pneumonia as precipitating etiology. The patient remains intubated and will be continued on assist-control mode of mechanical ventilation. Recommend holding off on attempts at weaning from invasive mechanical ventilatory support until her underlying acid-base status has improved with CRRT. In the interim, continue to minimize sedating medications as feasible. 2. Septic shock The patient presented to the hospital with sepsis due to suspected pneumonia and/or UTI with acute sepsis related organ dysfunction as evidenced by acute kidney injury, fluid refractory hypotension requiring vasopressor support and acute respiratory failure requiring mechanical ventilation. Plan to continue Levophed to maintain a mean arterial pressure at or above 65 mmHg. Continue empiric antimicrobials as ordered. 3. Acute on chronic kidney disease Most likely prerenal in etiology with concern for ischemic ATN in the setting of #2. Nephrology consultation is currently pending. Anticipate the need for initiation of CRRT today. 4. Metabolic acidosis Related to #2. Continue current supportive measures. 5. History of heart failure with preserved ejection fraction/neuropathy/hypothyroidism/hypertension/GERD Complicates care, management, recovery and prognosis. Will check TSH this morning. Otherwise, continue current supportive measures. TIME: 38 minutes of critical care time, independent of procedures, was spent addressing the patient's acute hypoxemic respiratory failure, septic shock, acute on chronic kidney disease, metabolic acidosis, review of all data and collaboration with the care team. Subjective Subjective The patient was seen and examined at the bedside this morning. Events from the last 24 hours have been reviewed. The patient remains febrile this morning. She remains hypotensive, requiring Levophed at 30 mcg/min to maintain hemodynamic stability. The patient remains on assist-control mode mechanical ventilation with an FiO2 requirement of 21% and PEEP of 5. White blood cell count remains elevated at 14,000 with a hemoglobin of 8.7 g/dL and platelet count of 266,000. INR was noted to be 1.2. ABG was notable for a pH of 7.35 with a pCO2 of 16 and pO2 of 100. Chemistry profile was notable for a chloride of 118, bicarbonate of 8.0, BUN of 140 and creatinine of 7.23. The patient is currently documented to be overall net +7.2 L for the hospitalization. In light of the patient's renal insufficiency and probable need for CRRT, temporary HD line was placed in the left IJ this morning. Nephrology was updated accordingly. Objective Data Objective Data The patient's most recent lab work, culture data and imaging studies have all been personally reviewed. Surface echocardiogram from August 2021 demonstrated stage I diastolic dysfunction. Blood cultures are pending. Preliminary urine cultures are demonstrating growth of gram-positive organisms. COVID, influenza and RSV PCR's were negative. Vital Signs: Vital Signs Temp Pulse Resp BP Pulse Ox O2 Del Method FiO2 100.6 F H 101 H 15 127/43 H 100 Mechanical Ventilator 05/02/24 06:00 05/02/24 07:20 05/02/24 07:20 05/02/24 07:00 05/02/24 07:20 05/02/24 06:00 05/02/24 06:00 Oxygen Delivery Method Mechanical Ventilator Weight: 241 lb 10.026 oz Body Mass Index (BMI) 47.4 Intake & Output: Intake and Output for Last 24 Hours 04/30/24 05/01/24 05/02/24 23:59 23:59 23:59 Intake Total 4954.00 / 5013.60 1069.31 / 1069.31 Output Total 50 / 50 80 / 80 Balance 4904.00 / 4963.60 989.31 / 989.31 Lab / Micro Data Attestation: I reviewed the patient's lab results. 05/02/24 03:00 05/02/24 03:00 Labs: Laboratory Results - last 24 hr 05/01/24 12:49: WBC 17.0 H, RBC 3.00 L, Hgb 9.7 L, Hct 30.5 L, MCV 101.7 H, MCH 32.3 H, MCHC 31.8 L, RDW Std Deviation 61.4 H, RDW Coeff of Parris 16.6 H, Plt Count 286, MPV 12.8 H, Immature Gran % (Auto) 1.100 H, Neut % (Auto) 83.3 H, L ymph % (Auto) 7.4 L, [place] % (Auto) 7.5, Eos % (Auto) 0.4, Baso % (Auto) 0.3, A bsolute Neuts (auto) 14.2 H, Absolute Lymphs (auto) 1.26, Nucleated RBC % 0.4, PT Cancelled, INR Cancelled, APTT Cancelled, Sodium 142, Potassium 6.1 H*, C hloride 121 H, Carbon Dioxide 4.0 L*, Anion Gap 18 H, BUN 158 H*, Creatinine 7.93 H*, Est GFR (MDRD) Af Amer 6 L, Est GFR (MDRD) Non-Af 5 L, BUN/Creatinine Ratio 19.9, Glucose 69 L, Lactic Acid 0.8, Calcium 8.4 L, Total Bilirubin 0.30, AST 22, ALT 18, Alkaline Phosphatase 97, Total Protein 6.5, Albumin 2.8 L, Globulin 3.7, Albumin/Globulin Ratio 0.8 L 05/01/24 14:40: Urine Color Yellow, Urine Clarity Cloudy, Urine pH 5.0, Ur Specific Cobb 1.020, Urine Protein 100 H, Urine Glucose (UA) Normal, Urine Ketones 5 H, Urine Occult Blood 150 H, Urine Nitrite Negative, Urine Bilirubin 1 H, Urine Urobilinogen Normal, Ur Leukocyte Esterase 500 H, Urine RBC 5-10 SEEN, Urine WBC 50-100 SEEN, Ur Squamous Epith Cells 5-10 SEEN, Ur Transition Epith Cell 0-5 SEEN, Ur Renal Epithelial Cell 25-50 SEEN, Urine Bacteria 3+, Urine Mucus 0 SEEN 05/01/24 15:50: PT 16.2 H, INR 1.3, APTT 31.2, Sodium 144, Potassium 5.4 H, C hloride 124 H, Carbon Dioxide 5.0 L*, Anion Gap 15, BUN 148 H*, Creatinine 7.33 H, Estim Creat Clear Calc 6.59, Est GFR (MDRD) Af Amer 7 L, Est GFR (MDRD) Non- Af 6 L, BUN/Creatinine Ratio 20.2 H, Glucose 82, Calcium 7.7 L 05/01/24 21:32: Sodium 143, Potassium 5.1, Chloride 122 H, Carbon Dioxide 6.0 L* , Anion Gap 15, BUN 144 H*, Creatinine 7.48 H*, Estim Creat Clear Calc 6.52, Est GFR (MDRD) Af Amer 7 L, Est GFR (MDRD) Non-Af 6 L, BUN/Creatinine Ratio 19.3, G lucose 144 H, Calcium 7.5 L, Phosphorus 9.9 H*, Magnesium 2.2, Total Creatine Kinase 487 H, Triglycerides 182 05/02/24 03:00: WBC 13.7 H, RBC 2.74 L, Hgb 8.7 L, Hct 27.4 L, MCV 100.0 H, MCH 31.8, MCHC 31.8 L, RDW Std Deviation 59.3 H, RDW Coeff of Parris 16.3 H, Plt Count 266, MPV 12.2 H, Immature Gran % (Auto) 0.700, Neut % (Auto) 83.7 H, Lymph % (Auto) 5.8 L, [place] % (Auto) 9.5, Eos % (Auto) 0.2, Baso % (Auto) 0.1, Absolute Neuts (auto) 11.5 H, Absolute Lymphs (auto) 0.80 L, Nucleated RBC % 0.5, Sodium 145, Potassium 4.0, Chloride 118 H, Carbon Dioxide 8.0 L*, BUN 140 H*, C reatinine 7.23 H, Estim Creat Clear Calc 6.75, Est GFR (MDRD) Af Amer 7 L, Est GFR (MDRD) Non-Af 6 L, BUN/Creatinine Ratio 19.4, Glucose 191 H, Calcium 7.3 L, Phosphorus 7.9 H 05/02/24 03:00: Phosphorus 8.1 H, Magnesium 1.7, Albumin 2.3 L Micro: Microbiology 05/01/24 16:20 Mucosa - Nasopharyngeal Respiratory Panel (PCR) - Final 05/01/24 15:30 Stool Clostridioides difficile (PCR) - Final 05/01/24 14:40 Urine Catheter - Ahuja Legionella Antigen - Final 05/01/24 14:40 Urine Catheter - Ahuja Streptococcus pneumoniae Antigen (M - Final 05/01/24 13:10 Mucosa - Nose SARS-CoV-2, Influenza & RSV (PCR) - Final ABG Data ABG results: ABG 05/01/24 05/01/24 05/01/24 13:12 16:16 22:49 Specimen Type BEAR ART ART Sample Site Not entered R Brach L Radial pH 6.90 L* 7.10 L* Bicarbonate Actual 4.4 L 4.0 L Total CO2 5 < 5 Base Excess -29 L -26 L O2 Saturation 98 98 O2 % 21.0 45.0 30.0 ABG pCO2 22.2 L 12.9 L* ABG pO2 172 H 144 H Alfredo Test N/A N/A VBG pH 7.02 L* VBG pO2 199 H VBG Total CO2 < 5 L VBG O2 Sat (Calc) 99 H VBG Base Excess -27 L POC Mix VBG pCO2 Pt Tmp 14.1 L* Respiration Rate 16 O2 Delivery Device Not entered Adult Vent Adult Vent Vent Mode AC AC/PC POC PEEP 5 Crit Call To/Read Back Yes Yes Yes Blood Gas Notified Whom lali Coe White Blood Gas Notified Time 13:13:56 22:51:06 Clinical Comments AC VC 14 450 +5 45% 05/02/24 05:42 Specimen Type ART Sample Site L Radial pH 7.35 Bicarbonate Actual 8.8 L Total CO2 9 Base Excess -17 L O2 Saturation 98 O2 % 21.0 ABG pCO2 16.1 L* ABG pO2 100 Alfredo Test N/A VBG pH VBG pO2 VBG Total CO2 VBG O2 Sat (Calc) VBG Base Excess POC Mix VBG pCO2 Pt Tmp Respiration Rate 16 O2 Delivery Device Adult Vent Vent Mode AC/PC POC PEEP 5 Crit Call To/Read Back Yes Blood Gas Notified Whom White Blood Gas Notified Time 05:44:24 Clinical Comments Radiography Diagnostic Testing: Radiology Impression Chest X-Ray 05/01/24 13:35 IMPRESSION: There is a right subclavian line coiled in the region of the right subclavian vein. Electronically Signed: Jerod Michael MD at 14:22 EST , Chest X-Ray 05/01/24 14:10 IMPRESSION: Right internal jugular line. Tip in the right atrium. No pneumothorax. Electronically Signed: Jerod Michael MD at 15:02 EST Reading Location ID and State: [facility] / [place] , Service support , Physical Exam Const Constitutional Narrative: Intubated, sedated and mechanically ventilated. HEENT normocephalic and head/scalp atraumatic Mouth: endotracheal tube in place and OG tube in place Eyes PERRL, EOMs intact bilaterally and conjunctivae normal Neck supple General: trachea midline and CVC in place Chest inspection of chest normal Resp Auscultation: diminished lung sounds; Negative for rales, rhonchi or wheezes Cardio regular rate and regular rhythm GI normal to inspection, nondistended, normoactive bowel sounds Extremity General Extremity: edema; Negative for clubbing Skin no rashes or lesions noted Neuro Sensorium / Orientation: sedated on vent Charges/Coding Procedures Hospitalists Procedures: 34188 Critical Care 1st Hr
[2024-05-02 08:45] LABS: International Normalized Ratio 1.2; Prothrombin Time (Protime)PT. 15.5 SECONDS (11.7-14.9)
[2024-05-02 08:46] LABS: Partial Thromboplast Time 30.1 Seconds (24.1-36.2)
--- NOTE | 2024-05-02 08:50 | NURSING ---
Dr. Davies at bedside to place dialysis catheter
--- NOTE | 2024-05-02 09:08 | RAD_ITS ---
STUDY: X-RAY CHEST REASON FOR EXAM: Female, 83 years old. LIJ dialysis catheter TECHNIQUE: Single AP portable view of the chest. COMPARISON: Comparison is made with prior study dated May 01, 2024. FINDINGS: An endotracheal tube is in situ. The tip is at 3.3 cm proximal to the lisa. A left-sided internal jugular venous catheter has been placed with the tip in the junction of superior vena cava and right atrium. A right-sided internal jugular venous catheter seen with the tip in the superior vena cava. EKG electrodes are seen. The lungs are clear and expanded. There is no demonstrated pleural abnormality. Normal size heart. Normal mediastinum and nataliya. Normal visualized pulmonary arteries. There is atherosclerotic calcification of the aortic arch with tortuosity. There are diffuse degenerative changes of the visualized thoracic spine. The patient is status post left reverse shoulder replacement. Degenerative changes of the right shoulder joint. There is no demonstrated abnormality of the visualized soft tissue structures of the upper abdomen. RAD/CXR for Line Placement IMPRESSION: The tip of the left internal jugular venous catheter is in the midportion of superior vena cava. The remainder of the examination is unchanged. Electronically Signed: Dwain Caruso MD at 9:45 EST ,
[2024-05-02] MEDS: Norepinephrine 8 MG in 0.9% Normal Saline (250mL Bag) 242 ML 46.9 MG CONT INF (09:19)
[2024-05-02 09:27] LABS: VBG Bicarbonate 4 mmol/L (22-26)
--- NOTE | 2024-05-02 09:34 | PCM.OP.PRO2 ---
Procedures Hospitalists Procedures: [id number] Insert Non-tunnel CV Cath Non-invasive Procedural Procedure Information Description of procedure: Temporary Hemodialysis Catheter Indication: Acute kidney injury Consent was obtained from: Patient's family A time-out was completed verifying correct patient, procedure, site, positioning, and special equipment if applicable. The patient was placed in a dependent position appropriate for hemodialysis line placement based on the vein to be cannulated. The patient's left neck was prepped and draped in the sterile fashion. 1% Lidocaine was used and emphasized the surrounding skin area. A 20 cm catheter was introduced into the left internal jugular vein, following sequential dilations, using the Seldinger technique and under ultrasound guidance. The catheter was threaded smoothly over the guidewire and appropriate blood return was obtained. Each lumen of the catheter was evacuated of air and flushed with sterile saline. The catheter was then sutured in place to the skin and a sterile dressing applied. Chest x-ray to confirm appropriate positioning is pending. ULTRASOUND GUIDANCE STATEMENT (Vascular Access): I performed an ultrasound image acquisition and interpretation for needle placement during the procedure. The vessel was identified and was found to be free of thrombosis by compression technique. A safe point of entry was marked at the skin in an angle for axis was determined. The needle was guided by obtaining free-flowing fluid and by real-time visualization.
[2024-05-02] MEDS: PUREFLOW B SOLUTION 4K 5,000 ML BAG 9 BAG PF ×3 (09:59→21:57)
[2024-05-02] MEDS: Vancomycin IV 1,000 MG/200 ML BAG 200 MG IV ×2 (10:51→21:56)
--- NOTE | 2024-05-02 11:19 | CASEMGMT ---
RN CM Assessment Pt is currently on the [facility] vent and cannot answer this RN CM questions for initial assessment as needed. TC to pt NOK on file, Mellisa Sawyer. Mellisa answers the phone and states that she is willing to help answer this RN CM questions for assessment. Care providers, pharmacy, and demographics verified. Admitting dx: AMS, Hypotension LACE Strata: 2 PCP: Miryam Wells Specialists: Nephro in [place] but is unsure of the name. Dr. Albrecht is currently consulted. Pt also sees Dr. Hernandez ([facility]), and Dr. Jackson with the [facility] Preferred Pharmacy: [facility] Insurance: MCR A/B, [facility] Supplemental plan Prescription Benefit: Yes LNOK: Mellisa Sawyer (Friend), Aime Vega (Son) Living Arrangements: Pt lives with her friend Mellisa in a 2 story/ split level home with one step to enter the home. Mellisa states that there are 2 stair lifts in the home for the pt to access the upper and lower sections ADLs/IADLs: Mellisa states that the pt requires A LOT of assistance. Mellisa states that she normally provides this assistance at home but is unsure if she will be able to manage this moving forward. Mellisa states, If I didn't help her at home she would have to get placed somewhere. Transportation: Mellisa states that the pt is very stubborn and still drives. Mellisa also drives. DME: Stair lift x2. Lift chair x 2. shower chair. Rollator. FWW. Electric bed. Cane x 2. HHC/SNF: Reports Hx with [facility] HH. Hx @ [facility] RU. Mellisa states that the pt was active with for OP PT prior to admission. Pt?s goal: TBD Plan: TBD. Per ICU rounds, pt will get a temp HD cath today and CRRT is to be initiated. CM to follow for OP HD needs. Current 6-Click score is 6. Today is VD#2. CM and SW to continue to follow. Mellisa states that the pt will likely prefer [facility] TCU/RU at the time of DC. Will continue to follow. Brooks José RN, CM
--- NOTE | 2024-05-02 11:21 | NURSING ---
CRRT started, multiple pressure alarms, repositioned patient, catheter did not have a good pull for blood flow, Gary, dialysis coordinator present in room to assist this RN, cartridge clotted, replacing cartridge, attempting to restart dialysis at this time.
[2024-05-02] MEDS: levoFLOXacin IV 500 MG/100 ML BAG 100 MG IV (12:46)
[2024-05-02] MEDS: fentaNYL drip 100 ML 15 MCG CONT INF (13:15)
[2024-05-02] MEDS: Norepinephrine 8 MG in 0.9% Normal Saline (250mL Bag) 242 ML 28.1 MG CONT INF (15:10)
[2024-05-02 15:15] LABS: Albumin, Serum 1.9 g/dL (3.2-5.0); BUN 105 mg/dL (7-18); BUN/Creat Ratio 18.5 RATIO (10-20); Chloride 113 mmol/L (98-107); Creatinine, Serum 5.68 mg/dL (0.55-1.02); EST Glomerular Filtration Rate 8 mL/min (>60); Est Glom Filt Rate - Afr Amer 9 mL/min (>60); Estimated Creatinine Clearance 8.73 ml/min; Glucose 153 mg/dL (74-106); Phosphorus 5.1 mg/dL (2.5-4.9); Potassium 3.6 mmol/L (3.5-5.1); Sodium Level 142 mmol/L (136-145)
--- NOTE | 2024-05-02 15:22 | CHAPLAIN ---
Type of Pastoral Visit ___ Initial Visit ___ Follow-up Visit ___ On-call Visit ___ General Patient Visit ___ Spiritual Assessment ___ Family Conference ___ Bereavement ___ Rapid Response ___ Code Blue ___ Other (describe below) Pastoral Care Referral From ___ Patient ___ Family ___ Nurse ___ Physician ___ Agricultural Technical Officer ___ Full Time ___ Other (describe below) Sacrament/Intervention ___ Active listening ___ Anointing ___ Quaker ___ Bereavement ___ Communion ___ Jade exploration ___ ___ Life review ___ Prayer ___ Reconciliation ___ Sacrament of Sick ___ Supportive presence ___ Wedding ___ Other (describe below) Pastoral Comments patient was having dialysis earlier; second attempt the patient is on the breathing machine and unable to talk
--- NOTE | 2024-05-02 17:10 | NURSING ---
High pressure alarms continue to alarm, troubleshooting via recommendations of Nxstage machine, this RN and two additional ICU RNs attempting to saline flush and would not flush, cartridge appears clotted, disconnected CRRT and flushed dialysis catheter lumens, Dr. Albrecht notified.
--- NOTE | 2024-05-02 17:26 | CT_ITS ---
STUDY: CT BRAIN WITHOUT CONTRAST REASON FOR EXAM: Female, 83 years old. unresponsive RADIATION DOSAGE (If Supplied By Facility): CTDIvol = ( 44.99 ) mGy, DLP = ( 796.11 ) mGycm TECHNIQUE: Transaxial CT imaging of the brain was performed without administration of intravenous contrast material. Individualized dose optimization techniques were used for this CT. COMPARISON: March 24, 2010. FINDINGS: Normal soft tissue structures. Normal calvarium. Mild calcific plaquing of the cavernous carotids Mild atrophy and periventricular white matter changes. . Normal basal ganglia and thalami. Normal brainstem. Normal cerebellum. There is no intracranial hemorrhage. There are no findings of an acute ischemic infarction. There is minor mucosal thickening of the bilateral ethmoid sinuses.. Postsurgical changes of the left orbit CT/Brain/Head without Contrast IMPRESSION: Mild atrophy and periventricular white matter ischemic changes. No mass or acute bleed. If concern for acute infarct MRI recommended Electronically Signed: Brennan Larkin MD at 19:11 EST Reading Location ID and State: [facility] / [place] Tel , Service support ,
--- NOTE | 2024-05-02 18:10 | PCM.CONS.R ---
Assessment & Plan Assessment/Plan (1) Complicated urinary tract infection: (2) Metabolic acidosis: (3) Acute renal failure: PLAN: CKD 3B. baseline cr around 1.6 to 1.8 JOSE presumably due to septic shock related ATN UA consistent with UTI, blood culture pending CRRT today due to renal failure and acidosis Acidosis. anion gap 17. lactate levels normal. possible gap and non gap acidosis. start CRRT hyperkalemia. better renal US HPI Consult Data Date of Consult: 05/02/24 HPI Narrative Reason for Consultation: JOSE HPI Narrative: MARI LOPEZ, is a 83 F who presents to the hospital with Acute renal failure. nephrology on consultation for JOSE. was found to be confused and 911 was called. it seems she has CKD stage 3B baseline cr around 1.6 to 1.8. overnight ran bicarbonate drip. not much urine output. intubated, was on pressors overnight, now better pressor requirements unable to obtain ROS [facility] Medical History Hypothyroidism Elevated parathyroid hormone Osteoporosis Morbid obesity with BMI of 45.0-49.9, adult Osteoarthritis Venous insufficiency of both lower extremities Diastolic dysfunction Pulmonary hypertension Metabolic acidosis Macrocytic anemia Lymphedema Preop cardiovascular exam H/O hemorrhoids Cholecystectomy planned Spinal cord stimulator status (HFpEF) heart failure with preserved ejection fraction History of pulmonary embolus (PE) COVID-19 (01/19/21) MRSA (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 Abdominal pain History of back problems Chronic kidney disease DVT (deep venous thrombosis) GERD (gastroesophageal reflux disease) Insomnia Obstructive sleep apnea Essential (primary) hypertension Chronic obstructive airway disease with asthma Incomplete left bundle branch block Home Medications ?Medication ?Instructions ?Recorded ?Last Taken ?Type omeprazole 20 mg capsule,delayed 20 mg PO DAILY reflux 11/13/17 02/24/24 History release glucosamine 500 1 cap PO TID supplement 10/17/19 02/24/24 History em-luvvkjiyb-fkghkyjq comp 400 mg-D3 667 unit-C-Mn cap hydrocortisone-pramoxine 2.5 %-1 % 1 applic ND BID . 10/17/19 Unknown History (4g) rectal cream cholecalciferol (vitamin D3) 25 50 mcg PO DAILY supplement 07/25/21 Unknown History mcg (1,000 unit) capsule levonorgestrel (Mirena) 1 mcg intrauterine ONCE . 07/25/21 Unknown History vitamin E mixed 400 unit capsule 400 unit PO DAILY supplement 07/25/21 02/24/24 History pyridoxine (vitamin B6) 100 mg 100 mg PO DAILY supplement 12/19/21 Unknown History tablet (Vitamin B-6) acetaminophen 500 mg tablet 1,000 mg PO Q8H pain 06/27/22 Unknown History gabapentin 300 mg capsule 300 mg PO TID nerve pain 06/27/22 02/24/24 History magnesium oxide 200 mg PO DAILY supplement 06/27/22 02/24/24 History multivitamin 1 tab PO DAILY supplement 06/27/22 02/24/24 History nitroglycerin 0.4 mg sublingual 0.4 mg sublingual Q5M PRN chest 06/27/22 Unknown Rx tablet pain #30 tabs lisinopril 10 mg tablet 10 mg PO DAILY blood pressure 06/07/23 Unknown History vibegron 75 mg tablet (Gemtesa) 75 mg PO DAILY overactive bladder 06/07/23 02/24/24 History polyethylene glycol 3350 17 gram 17 g PO DAILY bowel mobility #30 ea 06/09/23 02/24/24 Rx oral powder packet fluorometholone 0.1 % eye 1 drp ophthalmic (eye) BID eyes 02/24/24 02/24/24 History drops,suspension furosemide 20 mg tablet 60 mg PO DAILY water retention 02/24/24 Unknown History zinc acetate 25 mg (zinc) capsule 50 mg PO TID supplement 02/24/24 02/24/24 History ascorbic acid (vitamin C) 500 mg 1,000 mg (2 x 500 mg) PO 03/01/24 Unknown Rx tablet DAILYCM@1200 #60 tabs aspirin 81 mg chewable tablet 81 mg PO BID #38 tabs 03/01/24 Unknown Rx calcium carbonate 500 mg (2.5 x 200 mg calcium (500 03/01/24 Unknown Rx mg)) PO TIDCM #90 tabs cyclobenzaprine 10 mg tablet 10 mg PO TID PRN Muscle Spasm #30 03/01/24 Unknown Rx tabs doxycycline monohydrate 100 mg 100 mg PO BID #10 caps 03/01/24 Unknown Rx capsule ferrous sulfate 325 mg (65 mg 325 mg PO DAILY@1200 #30 tabs 03/01/24 Unknown Rx iron) tablet (FeroSul) hydrocortisone 2.5 % topical 1 applic topical BID PRN PRN 03/01/24 Unknown Rx ointment RASH/TOPICAL IRRITATION #1 tube levothyroxine 125 mcg tablet 125 mcg PO DAILY thyroid #30 tabs 03/01/24 Unknown Rx oxycodone 5 mg tablet 5 mg PO Q4H PRN PRN pain 1-10 7 03/01/24 Unknown Rx days #35 tabs sennosides 8.6 mg-docusate sodium 2 tab PO BID #120 tabs 03/01/24 Unknown Rx 50 mg tablet (Stimulant Laxative Plus) zolpidem 5 mg tablet 5 mg PO QHS #30 tabs 03/01/24 Unknown Rx Allergy/AdvReac Type Severity Reaction Status Date / Time cefazolin (From Kefzol) Allergy Severe hives/difficulty Verified 05/01/24 13:06 swallowing ibuprofen Allergy Unknown Rash Verified 05/01/24 13:06 peanut Allergy Anaphylaxis Verified 05/01/24 13:06 Sulfa (Sulfonamide Allergy Unknown Verified 05/01/24 13:06 Antibiotics) sulfamethoxazole (From Allergy Other Verified 05/01/24 13:06 Bactrim) trimethoprim (From Bactrim) Allergy Other Verified 05/01/24 13:06 Family History Mother Cancer uterine Family History unable to obtain Surgical History History of left heart catheterization (08/01/22) History of dilatation and curettage History of hysteroscopy History of bilateral knee replacement History of herniorrhaphy Status post debridement History of open reduction and internal fixation (ORIF) procedure H/O hemorrhoidectomy History of gastric bypass Social History household members: other details: She has a roomate housing: house number of children: 1 current occupational status: retired pets and animals: Yes pets and animals: dog(s) Smoking Status: Never smoker alcohol intake: never substance use type: does not use caffeine: Yes Type: coffee Number of servings: 3 Physical Exam Narrative no obvious distress no pallor no icterus no JVD s1s2 no murmurs lungs clear abdomen soft no organomegaly no edema no cyanosis do + Lab / Micro Data 05/02/24 03:00 05/02/24 14:30 Labs: Laboratory Results - last 24 hr 05/01/24 21:32: Sodium 143, Potassium 5.1, Chloride 122 H, Carbon Dioxide 6.0 L*, Anion Gap 15, BUN 144 H*, Creatinine 7.48 H*, Estim Creat Clear Calc 6.52, Est GFR (MDRD) Af Amer 7 L, Est GFR (MDRD) Non-Af 6 L, BUN/Creatinine Ratio 19.3, Glucose 144 H, Calcium 7.5 L, Phosphorus 9.9 H*, Magnesium 2.2, Total Creatine Kinase 487 H, Triglycerides 182 05/02/24 03:00: WBC 13.7 H, RBC 2.74 L, Hgb 8.7 L, Hct 27.4 L, MCV 100.0 H, MCH 31.8, MCHC 31.8 L, RDW Std Deviation 59.3 H, RDW Coeff of Parris 16.3 H, Plt Count 266, MPV 12.2 H, Immature Gran % (Auto) 0.700, Neut % (Auto) 83.7 H, Lymph % (Auto) 5.8 L, Franklin % (Auto) 9.5, Eos % (Auto) 0.2, Baso % (Auto) 0.1, Absolute Neuts (auto) 11.5 H, Absolute Lymphs (auto) 0.80 L, Nucleated RBC % 0.5, Sodium 145, Potassium 4.0, Chloride 118 H, Carbon Dioxide 8.0 L*, BUN 140 H*, Creatinine 7.23 H, Estim Creat Clear Calc 6.75, Est GFR (MDRD) Af Amer 7 L, Est GFR (MDRD) Non-Af 6 L, BUN/Creatinine Ratio 19.4, Glucose 191 H, Calcium 7.3 L, Phosphorus 7.9 H 05/02/24 03:00: Phosphorus 8.1 H, Magnesium 1.7, Albumin 2.3 L 05/02/24 08:15: PT 15.5 H, INR 1.2, APTT 30.1 05/02/24 12:20: TSH 7.150 H 05/02/24 14:30: Sodium 142, Potassium 3.6, Chloride 113 H, Carbon Dioxide 18.0 L, BUN 105 H*, Creatinine 5.68 H, Estim Creat Clear Calc 8.73, Est GFR (MDRD) Af Amer 9 L, Est GFR (MDRD) Non-Af 8 L, BUN/Creatinine Ratio 18.5, Glucose 153 H, Calcium 7.0 L, Phosphorus 5.1 H, Albumin 1.9 L Micro: Microbiology 05/01/24 15:53 Sputum, Induced/Lukens Gram Stain - Final 05/01/24 14:40 Urine Catheter - Catheter Urine Culture - Preliminary Gram positive organism Gram positive organism#2 05/01/24 15:30 Stool Clostridioides difficile (PCR) - Final 05/01/24 16:20 Mucosa - Nasopharyngeal Respiratory Panel (PCR) - Final 05/01/24 14:40 Urine Catheter - Do Legionella Antigen - Final 05/01/24 14:40 Urine Catheter - Do Streptococcus pneumoniae Antigen (M - Final 05/01/24 13:10 Mucosa - Nose SARS-CoV-2, Influenza & RSV (PCR) - Final ABG Data ABG results: ABG 05/01/24 05/01/24 05/02/24 13:12 22:49 05:42 Specimen Type ART ART Sample Site L Radial L Radial pH 7.10 L* 7.35 Bicarbonate Actual 4.0 L 8.8 L Total CO2 < 5 9 Base Excess -26 L -17 L O2 Saturation 98 98 O2 % 30.0 21.0 ABG pCO2 12.9 L* 16.1 L* ABG pO2 144 H 100 Alfredo Test N/A N/A VBG HCO3 4 L Respiration Rate 16 16 O2 Delivery Device Adult Vent Adult Vent Vent Mode AC/PC AC/PC POC PEEP 5 5 Crit Call To/Read Back Yes Yes Blood Gas Notified Whom Dr Sami Gallardo Blood Gas Notified Time 22:51:06 05:44:24 Imaging Radiology Impression Chest X-Ray 05/02/24 09:08 IMPRESSION: The tip of the left internal jugular venous catheter is in the midportion of superior vena cava. The remainder of the examination is unchanged. Electronically Signed: Dwain Caruso MD at 9:45 EST ,
[2024-05-02] MEDS: Heparin 10,000 UNITS/10 ML Vial IV (18:48)
[2024-05-02] MEDS: HEPARIN/D5w 25,000 UNITS 25,000 UNITS/250 ML IV.SOLN. 15 UNITS CONT INF (19:50)
[2024-05-02] MEDS: 0.9% Saline Lock 10 ML Syringe IV ×3 (19:59→21:52)
[2024-05-02 20:20] LABS: International Normalized Ratio 1.3; Prothrombin Time (Protime)PT. 16.1 SECONDS (11.7-14.9)
[2024-05-02 20:21] LABS: Partial Thromboplast Time 39.9 Seconds (24.1-36.2)
--- NOTE | 2024-05-02 22:34 | NURSING ---
CRRT restarted per Dr. Albrecht's order after heparin gtt started. Upon making connections to dialysis catheter and attempting to begin treatment, the machine kept alarming high arterial pressures and was noted to be pulling air, despite numerous attempts to reposition patient and neck. Of note, the dialysis catheter had great blood return and was very easy to flush. This RN and another RN were unable to resolve issues. RN that also runs dialysis was working on another floor and she came to look at the machine and line. She recommended switching the arterial and venous lines to see if that would help. Lines switched and CRRT began running smoothly. Dr. Albrecht notified of this and he was fine with continuing to run them switched.
[2024-05-02 22:49] LABS: Albumin, Serum 1.8 g/dL (3.2-5.0); BUN 96 mg/dL (7-18); BUN/Creat Ratio 19.6 RATIO (10-20); Calcium,Total 7.1 mg/dL (8.5-10.1); Chloride 112 mmol/L (98-107); Creatinine, Serum 4.91 mg/dL (0.55-1.02); EST Glomerular Filtration Rate 9 mL/min (>60); Est Glom Filt Rate - Afr Amer 11 mL/min (>60); Glucose 126 mg/dL (74-106); Phosphorus 4.5 mg/dL (2.5-4.9); Potassium 3.4 mmol/L (3.5-5.1); Sodium Level 142 mmol/L (136-145)
[2024-05-02] MEDS: NORMAL SALINE 0.9% IV (23:09)
[2024-05-02] MEDS: POTASSIUM CHLORIDE IV (23:09)
[2024-05-03] VITALS (45 sets, daily range): BP systolic 97–149; BP diastolic 48–72; PULSE 68–85; RESP 14–16; TEMP 35.9–37.1; O2SAT 88–99; BMI 49.8
[2024-05-03] MEDS: 0.9% Saline Lock 10 ML Syringe IV ×7 (00:29→20:49)
[2024-05-03] MEDS: PUREFLOW B SOLUTION 4K 5,000 ML BAG 9 BAG PF ×5 (00:30→14:46)
[2024-05-03] MEDS: Norepinephrine 8 MG in 0.9% Normal Saline (250mL Bag) 242 ML 18.8 MG CONT INF (02:37)
[2024-05-03] MEDS: CHLORHEXIDINE GLUC 2% CLOTH 1 EACH TOWELETTE TOPICAL (02:37)
[2024-05-03 03:41] LABS: Absolute Lymphocyte Count 1.92 X10^3/uL (0.83-4.51); Absolute Neutrophil Count 15.2 X10^3/uL (2.0-7.7); Basophil# 0.07 X10^3/uL; Basophil% 0.4 % (0-1); Eosinophil# 0.17 X10^3/uL; Eosinophils% 0.9 % (0-5); Hematocrit 24.6 % (37-47); Hemoglobin 8.3 g/dL (12.0-15.0); Lymphocyte # 1.92 X10^3/ul (0.83-4.51); Lymphocyte % 9.8 % (19-41); Mean Corp Hgb Conc 33.7 g/dL (32-36); Mean Corpuscular Hgb 32.7 pg (27.0-32.0); Mean Corpuscular Volume 96.9 fL (81-99); Mean Platelet Vol. 11.8 fl (6.2-12.0); Monocyte# 1.63 X10^3/uL; Monocyte% 8.4 % (0-10); NRBC Flagged by Analyzer 0.3 % (0-5); Neutrophil # 15.23 X10^3/uL (2.7-7.7); Neutrophil % 77.9 % (47-70); POSITIVE DIFFERENTIAL YES; Platelet Count 145 K/mm3 (150-450); RBC Distribution Width CV 16.2 % (11.6-14.6); RBC Distribution Width SD 57.2 fl (35.1-43.9); Red Blood Count 2.54 M/mm3 (4.2-5.4); White Blood Count 19.5 K/mm3 (4.4-11.0)
[2024-05-03 03:53] LABS: Anion Gap 9 (5-15); BUN 67 mg/dL (7-18); Calcium,Total 7.6 mg/dL (8.5-10.1); Chloride 110 mmol/L (98-107); Creatinine, Serum 3.72 mg/dL (0.55-1.02); EST Glomerular Filtration Rate 12 mL/min (>60); Est Glom Filt Rate - Afr Amer 15 mL/min (>60); Estimated Creatinine Clearance 13.73 ml/min; Glucose 122 mg/dL (74-106); Magnesium 1.6 mg/dL (1.6-2.6); Phosphorus 3.5 mg/dL (2.5-4.9); Potassium 4.1 mmol/L (3.5-5.1); Sodium Level 140 mmol/L (136-145)
[2024-05-03 03:57] LABS: Differential Indicated SCAN CRITERIA MET
[2024-05-03] MEDS: Amiodarone 360 MG in Dextrose 5% Viaflo Bag 192.8 ML 16.7 MG CONT INF ×2 (03:59→15:58)
[2024-05-03 04:16] LABS: BUN 67 mg/dL (7-18); BUN/Creat Ratio 18.2 RATIO (10-20); Calcium,Total 7.6 mg/dL (8.5-10.1); Chloride 110 mmol/L (98-107); Creatinine, Serum 3.69 mg/dL (0.55-1.02); EST Glomerular Filtration Rate 13 mL/min (>60); Est Glom Filt Rate - Afr Amer 15 mL/min (>60); Estimated Creatinine Clearance 13.84 ml/min; Glucose 120 mg/dL (74-106); Phosphorus 3.5 mg/dL (2.5-4.9); Potassium 4.1 mmol/L (3.5-5.1); Sodium Level 140 mmol/L (136-145); Vancomycin, Random Level 26.5 ug/mL (0.0-15.0)
[2024-05-03 04:30] LABS: Differential Comment SCANNED
[2024-05-03] MEDS: Levothyroxine 125 MCG Tablet PO (05:02)
[2024-05-03] MEDS: fentaNYL drip 100 ML 10 MCG CONT INF ×2 (06:34→16:49)
[2024-05-03] MEDS: Heparin 10,000 UNITS/10 ML Vial IV ×2 (06:56→17:42)
--- NOTE | 2024-05-03 07:11 | PN.HOSP_ITS ---
Reason for Visit Reason for Visit: Diagnoses Sepsis, unspecified organism (05/01/24) Acidosis, unspecified (05/01/24) Acute kidney failure, unspecified (05/01/24) Urinary tract infection, site not specified (05/01/24) Shock, unspecified (05/01/24) Severe sepsis with septic shock (05/01/24) Subjective Subjective Patient had temporary dialysis catheter placed with initiation of CRRT Objective Data Objective Data Vital Signs: Vital Signs Temp Pulse Resp BP Pulse Ox O2 Del Method FiO2 96.8 F L 80 15 123/62 H 93 Mechanical Ventilator 21 05/03/24 06:00 05/03/24 07:01 05/03/24 07:01 05/03/24 06:00 05/03/24 07:01 05/03/24 06:00 05/03/24 06:00 Oxygen Delivery Method Mechanical Ventilator Weight: 115.1 kg Body Mass Index (BMI) 49.8 Intake & Output: Intake and Output for Last 24 Hours 05/01/24 05/02/24 05/03/24 23:59 23:59 23:59 Intake Total 4954.00 / 5013.60 4731.16 / 4885.08 820.74 / 820.74 Output Total 50 / 50 335 / 335 Balance 4904.00 / 4963.60 4396.16 / 4550.08 820.74 / 820.74 Lab / Micro Data 05/03/24 03:35 05/03/24 03:35 Labs: Laboratory Results - last 24 hr 05/02/24 08:15: PT 15.5 H, INR 1.2, APTT 30.1 05/02/24 12:20: TSH 7.150 H 05/02/24 14:30: Sodium 142, Potassium 3.6, Chloride 113 H, Carbon Dioxide 18.0 L , BUN 105 H*, Creatinine 5.68 H, Estim Creat Clear Calc 8.73, Est GFR (MDRD) Af Amer 9 L, Est GFR (MDRD) Non-Af 8 L, BUN/Creatinine Ratio 18.5, Glucose 153 H, C alcium 7.0 L, Phosphorus 5.1 H, Albumin 1.9 L 05/02/24 19:47: PT 16.1 H, INR 1.3, APTT 39.9 H 05/02/24 22:23: Sodium 142, Potassium 3.4 L, Chloride 112 H, Carbon Dioxide 19.0 L, BUN 96 H, Creatinine 4.91 H, Estim Creat Clear Calc 10.10, Est GFR (MDRD) Af Amer 11 L, Est GFR (MDRD) Non-Af 9 L, BUN/Creatinine Ratio 19.6, Glucose 126 H, Calcium 7.1 L, Phosphorus 4.5, Albumin 1.8 L 05/03/24 03:35: WBC 19.5 H, RBC 2.54 L, Hgb 8.3 L, Hct 24.6 L, MCV 96.9, MCH 32.7 H, MCHC 33.7 D, RDW Std Deviation 57.2 H, RDW Coeff of Parris 16.2 H, Plt Count 145 L, MPV 11.8, Immature Gran % (Auto) 2.600 H, Neut % (Auto) 77.9 H, L ymph % (Auto) 9.8 L, Weld % (Auto) 8.4, Eos % (Auto) 0.9, Baso % (Auto) 0.4, A bsolute Neuts (auto) 15.2 H, Absolute Lymphs (auto) 1.92, Nucleated RBC % 0.3, Differential Comment SCANNED, Diff Path Review August, Sodium 140 05/03/24 03:35: Sodium 140, Potassium 4.1 05/03/24 03:35: Potassium 4.1, Chloride 110 H 05/03/24 03:35: Chloride 110 H, Carbon Dioxide 22.0 05/03/24 03:35: Carbon Dioxide 21.0, Anion Gap 9, BUN 67 H 05/03/24 03:35: BUN 67 H, Creatinine 3.72 H 05/03/24 03:35: Creatinine 3.69 H, Estim Creat Clear Calc 13.73 05/03/24 03:35: Estim Creat Clear Calc 13.84, Est GFR (MDRD) Af Amer 15 L 05/03/24 03:35: Est GFR (MDRD) Af Amer 15 L, Est GFR (MDRD) Non-Af 12 L 05/03/24 03:35: Est GFR (MDRD) Non-Af 13 L, BUN/Creatinine Ratio 18.0 05/03/24 03:35: BUN/Creatinine Ratio 18.2, Glucose 122 H 05/03/24 03:35: Glucose 120 H, Calcium 7.6 L 05/03/24 03:35: Calcium 7.6 L, Phosphorus 3.5 05/03/24 03:35: Phosphorus 3.5, Magnesium 1.6, Albumin 2.0 L, Random Vancomycin 26.5 H Micro: Microbiology 05/01/24 15:53 Sputum, Induced/Lukens Gram Stain - Final 05/01/24 14:40 Urine Catheter - Catheter Urine Culture - Preliminary Gram positive organism Gram positive organism#2 05/01/24 15:30 Stool Clostridioides difficile (PCR) - Final 05/01/24 16:20 Mucosa - Nasopharyngeal Respiratory Panel (PCR) - Final 05/01/24 14:40 Urine Catheter - Ahuja Legionella Antigen - Final 05/01/24 14:40 Urine Catheter - Ahuja Streptococcus pneumoniae Antigen (M - Final 05/01/24 13:10 Mucosa - Nose SARS-CoV-2, Influenza & RSV (PCR) - Final ABG Data ABG results: ABG 05/01/24 13:12 VBG HCO3 4 L Radiography Diagnostic Testing: Radiology Impression Chest X-Ray 05/02/24 09:08 IMPRESSION: The tip of the left internal jugular venous catheter is in the midportion of superior vena cava. The remainder of the examination is unchanged. Electronically Signed: Dwain Caruso MD at 9:45 EST , Brain CT 05/02/24 17:26 IMPRESSION: Mild atrophy and periventricular white matter ischemic changes. No mass or acute bleed. If concern for acute infarct MRI recommended Electronically Signed: Brennan Larkin MD at 19:11 EST , Physical Exam Narrative GENERAL: Patient on the vent HEENT: Atraumatic; normocephalic EYES; Anicteric, Normal Conjunctiva NECK; supple, normal thyroid, RESPIRATORY: Diminished to auscultation CARDIOVASCULAR: Regular S1 S2, GI: soft, normoactive bowel sounds, : No Renal angle tenderness; EXTREMITIES: No edema, no clubbing, MUSCULOSKELETAL: no muscle wasting NEURO: Unable to assess SKIN: No Rash Assessment & Plan Assessment/Plan (1) Shock: PLAN: Plan Patient is an 83-year-old lady who was admitted with altered mental status. Patient was found to be in acute respiratory failure resulting in patient being intubated in the ED. An assessment of septic shock as well as acute kidney injury with severe metabolic acidosis made admitted to the intensive care unit for further management 1. Shock-suspect septic shock -Patient presented with respiratory failure, renal failure, hypotension and had elevated white blood cell count with left shift . Patient given 30 cc/kg bolus in the ED and required right IJ placement and Levophed administration, patient was started on broad-spectrum antibiotic therapy with vancomycin and Levaquin #2. Acute cystitis ? Patient presented with septic shock management as discussed above 3. Acute hypoxic respiratory failure ? Patient was reported to be saturating 65% on room air was placed on 15 L nonrebreather by the squad without much improvement eventually intubated in the ED admitted to the intensive care unit initial vent settings written by admitting physician and subsequent management deferred to char conveyor tender 4. Acute kidney injury ? Superimposed on chronic kidney disease stage IIIb with severe metabolic acidosis as well as hyperkalemia. Patient was treated with bicarb consultation placed to nephrology with plans for patient to undergo CRRT ? 04/25/2024;Patient had temporary dialysis catheter placed with initiation of CRRT 5. Anemia ? Secondary to chronic disorder monitoring H&H and transfuse if patient becomes symptomatic or hemoglobin falls below 7 6. Chronic congestive heart failure with preserved ejection fraction ? Patient is on furosemide held on admission given her presentation 7. Essential hypertension ? Patient presented with septic shock antihypertensives held 8. Hypothyroidism ? Patient is on levothyroxine home dose continued 9. GERD ? Patient is a PPI 10. Class III obesity with BMI of 49.8 ? Complicating care plan is to securities counselor patient on weight loss following her extubation 11. DVT prophylaxis ? Subcu heparin Time spent in the patient's overall evaluation,decision-making process, review of diagnostic data, adjustment of management, discussion with other providers, nursing nursing and ancillary staff involved in patient's care documentation, 50 Minutes Charges/Coding Visit Charges Inpatient E&M: 79814 [facility] L3
--- NOTE | 2024-05-03 07:38 | PN.CC_ITS ---
Assessment & Plan Assessment/Plan (1) Septic shock: (2) Acute renal failure: PLAN: Plan RECOMMENDATIONS: 1. Continue assist-control mode mechanical ventilation. 2. Continue current sedation regimen. 3. Continue CRRT per nephrology recommendations. 4. Continue Levophed to maintain mean arterial pressure at or above 65 mmHg. 5. Continue antimicrobials. 6. Continue to monitor H&H. Transfuse if hemoglobin drops below 7 g/dL. 7. Continue appropriate GI and DVT prophylaxis. 8. Okay to initiate tube feeding today from my perspective IMPRESSIONS: 1. Acute hypoxemic respiratory failure Clinical concern for underlying pneumonia as precipitating etiology. The patient remains intubated and will be continued on assist-control mode of mechanical ventilation. Recommend holding off on attempts at weaning from invasive mechanical ventilatory support until her underlying acid-base status has improved with CRRT. In the interim, continue to minimize sedating medications as feasible. 2. Septic shock The patient presented to the hospital with sepsis due to suspected pneumonia and/or UTI with acute sepsis related organ dysfunction as evidenced by acute kidney injury, fluid refractory hypotension requiring vasopressor support and acute respiratory failure requiring mechanical ventilation. Plan to continue Levophed to maintain a mean arterial pressure at or above 65 mmHg. Continue empiric antimicrobials as ordered. 3. Acute on chronic kidney disease Most likely prerenal in etiology with concern for ischemic ATN in the setting of #2. The patient remains on CRRT therapy under the discretion of nephrology. 4. Metabolic acidosis Related to #2. Continue current supportive measures. 5. History of heart failure with preserved ejection fraction/neuropathy/hypothyroidism/hypertension/GERD Complicates care, management, recovery and prognosis. Tube feeding to be initiated today. TIME: 35 minutes of critical care time, independent of procedures, was spent addressing the patient's acute hypoxemic respiratory failure, septic shock, acute on chronic kidney disease, metabolic acidosis, review of all data and collaboration with the care team. Subjective Subjective The patient was seen and examined at the bedside this morning. Events from the last 24 hours have been reviewed. The patient remains on assist-control mode of mechanical ventilation with an FiO2 requirement of 21% and PEEP of 5. The patient remains on Levophed at 10 mcg/min to maintain hemodynamic stability. The patient has been tolerant of CRRT. She is currently documented to be overall net +10 L for the hospitalization. White blood cell count is elevated at 20,000 with a hemoglobin of 8.3 g/dL and platelet count of 145,000. Serum bicarbonate was noted to be 21 with a creatinine of 3.69. Objective Data Objective Data The patient's most recent lab work, culture data and imaging studies have all been personally reviewed. Surface echocardiogram from August 2021 demonstrated stage I diastolic dysfunction. Blood cultures are pending. Preliminary urine culture is demonstrating growth of a gram-negative nancy. COVID, influenza and RSV PCR's were negative. Vital Signs: Vital Signs Temp Pulse Resp BP Pulse Ox O2 Del Method FiO2 97.1 F L 80 15 136/51 H 93 Mechanical Ventilator 05/03/24 07:00 05/03/24 07:01 05/03/24 07:01 05/03/24 07:00 05/03/24 07:01 05/03/24 07:00 05/03/24 07:00 Oxygen Delivery Method Mechanical Ventilator Weight: 253 lb 12.033 oz Body Mass Index (BMI) 49.8 Intake & Output: Intake and Output for Last 24 Hours 05/01/24 05/02/24 05/03/24 23:59 23:59 23:59 Intake Total 4954.00 / 5013.60 4731.16 / 4885.08 843.87 / 843.87 Output Total 50 / 50 335 / 335 Balance 4904.00 / 4963.60 4396.16 / 4550.08 843.87 / 843.87 Lab / Micro Data Attestation: I reviewed the patient's lab results. 05/03/24 03:35 05/03/24 09:30 Labs: Laboratory Results - last 24 hr 05/02/24 08:15: PT 15.5 H, INR 1.2, APTT 30.1 05/02/24 12:20: TSH 7.150 H 05/02/24 14:30: Sodium 142, Potassium 3.6, Chloride 113 H, Carbon Dioxide 18.0 L , BUN 105 H*, Creatinine 5.68 H, Estim Creat Clear Calc 8.73, Est GFR (MDRD) Af Amer 9 L, Est GFR (MDRD) Non-Af 8 L, BUN/Creatinine Ratio 18.5, Glucose 153 H, C alcium 7.0 L, Phosphorus 5.1 H, Albumin 1.9 L 05/02/24 19:47: PT 16.1 H, INR 1.3, APTT 39.9 H 05/02/24 22:23: Sodium 142, Potassium 3.4 L, Chloride 112 H, Carbon Dioxide 19.0 L, BUN 96 H, Creatinine 4.91 H, Estim Creat Clear Calc 10.10, Est GFR (MDRD) Af Amer 11 L, Est GFR (MDRD) Non-Af 9 L, BUN/Creatinine Ratio 19.6, Glucose 126 H, Calcium 7.1 L, Phosphorus 4.5, Albumin 1.8 L 05/03/24 03:35: WBC 19.5 H, RBC 2.54 L, Hgb 8.3 L, Hct 24.6 L, MCV 96.9, MCH 32.7 H, MCHC 33.7 D, RDW Std Deviation 57.2 H, RDW Coeff of Parris 16.2 H, Plt Count 145 L, MPV 11.8, Immature Gran % (Auto) 2.600 H, Neut % (Auto) 77.9 H, L ymph % (Auto) 9.8 L, [place] % (Auto) 8.4, Eos % (Auto) 0.9, Baso % (Auto) 0.4, A bsolute Neuts (auto) 15.2 H, Absolute Lymphs (auto) 1.92, Nucleated RBC % 0.3, Differential Comment SCANNED, Diff Path Review August, Sodium 140 05/03/24 03:35: Sodium 140, Potassium 4.1 05/03/24 03:35: Potassium 4.1, Chloride 110 H 05/03/24 03:35: Chloride 110 H, Carbon Dioxide 22.0 05/03/24 03:35: Carbon Dioxide 21.0, Anion Gap 9, BUN 67 H 05/03/24 03:35: BUN 67 H, Creatinine 3.72 H 05/03/24 03:35: Creatinine 3.69 H, Estim Creat Clear Calc 13.73 05/03/24 03:35: Estim Creat Clear Calc 13.84, Est GFR (MDRD) Af Amer 15 L 05/03/24 03:35: Est GFR (MDRD) Af Amer 15 L, Est GFR (MDRD) Non-Af 12 L 05/03/24 03:35: Est GFR (MDRD) Non-Af 13 L, BUN/Creatinine Ratio 18.0 05/03/24 03:35: BUN/Creatinine Ratio 18.2, Glucose 122 H 05/03/24 03:35: Glucose 120 H, Calcium 7.6 L 05/03/24 03:35: Calcium 7.6 L, Phosphorus 3.5 05/03/24 03:35: Phosphorus 3.5, Magnesium 1.6, Albumin 2.0 L, Random Vancomycin 26.5 H Micro: Microbiology 05/01/24 15:53 Sputum, Induced/Lukens Gram Stain - Final 05/01/24 14:40 Urine Catheter - Catheter Urine Culture - Preliminary Gram positive organism Gram positive organism#2 05/01/24 15:30 Stool Clostridioides difficile (PCR) - Final 05/01/24 16:20 Mucosa - Nasopharyngeal Respiratory Panel (PCR) - Final 05/01/24 14:40 Urine Catheter - Ahuja Legionella Antigen - Final 05/01/24 14:40 Urine Catheter - Ahuja Streptococcus pneumoniae Antigen (M - Final 05/01/24 13:10 Mucosa - Nose SARS-CoV-2, Influenza & RSV (PCR) - Final ABG Data ABG results: ABG 05/01/24 13:12 VBG HCO3 4 L Radiography Diagnostic Testing: Radiology Impression Chest X-Ray 05/02/24 09:08 IMPRESSION: The tip of the left internal jugular venous catheter is in the midportion of superior vena cava. The remainder of the examination is unchanged. Electronically Signed: Dwain Caruso MD at 9:45 EST , Brain CT 05/02/24 17:26 IMPRESSION: Mild atrophy and periventricular white matter ischemic changes. No mass or acute bleed. If concern for acute infarct MRI recommended Electronically Signed: Brennan Larkin MD at 19:11 EST , Physical Exam Const Constitutional Narrative: Intubated, sedated and mechanically ventilated. No ventilator dyssynchrony. Morbidly obese. General Appearance: ill appearing HEENT normocephalic and head/scalp atraumatic Mouth: endotracheal tube in place and OG tube in place Eyes PERRL, EOMs intact bilaterally and conjunctivae normal Neck supple General: trachea midline and CVC in place Chest inspection of chest normal Resp Auscultation: diminished lung sounds; Negative for rales, rhonchi or wheezes Cardio regular rate and regular rhythm GI normal to inspection, nondistended, normoactive bowel sounds Extremity General Extremity: edema; Negative for clubbing Skin no rashes or lesions noted Neuro Sensorium / Orientation: sedated on vent Charges/Coding Procedures Hospitalists Procedures: [id number] Critical Care 1st Hr
--- NOTE | 2024-05-03 09:47 | CASEMGMT ---
Social Work POA for healthcare scanned into [facility], Aime Vega is listed as POA and friend Mellisa Newman is the alternate. Living will also scanned into [employer]. JONA Blakely
[2024-05-03] MEDS: Pantoprazole Sodium 40 MG in 0.9% Normal Saline (100mL MB+) 100 ML 330 MG IV (09:53)
[2024-05-03] MEDS: Chlorhexidine 15 ML PO ×2 (09:55→20:49)
[2024-05-03 09:56] LABS: Albumin, Serum 1.8 g/dL (3.2-5.0); BUN 56 mg/dL (7-18); Calcium,Total 7.7 mg/dL (8.5-10.1); Chloride 109 mmol/L (98-107); Creatinine, Serum 3.11 mg/dL (0.55-1.02); EST Glomerular Filtration Rate 15 mL/min (>60); Est Glom Filt Rate - Afr Amer 18 mL/min (>60); Estimated Creatinine Clearance 16.43 ml/min; Glucose 111 mg/dL (74-106); Phosphorus 3.2 mg/dL (2.5-4.9); Sodium Level 140 mmol/L (136-145)
[2024-05-03 09:57] LABS: Vancomycin, Trough Level 24.6 ug/mL (5.0-15.0)
[2024-05-03] MEDS: levoFLOXacin IV 500 MG/100 ML BAG 100 MG IV (10:00)
[2024-05-03] MEDS: Vital AF 1.2 Cal Liquid 1,000 ML 20 ML GT (10:37)
--- NOTE | 2024-05-03 10:43 | PCM.RX.CS ---
Consult Antibiotic Management Pharmacy has been consulted to manage selected antibiotic: Vancomycin Type of Intervention Type of Consult: Follow-up Suspected Infection Suspected Infection: Sepsis and Pneumonia Prior Doses of Antibiotics Prior Doses of Antibiotics Received/Current Regimen: Vancomycin 1000 mg Q12H last dose given 05/02/24 @ 2156 Labs Labs: Sodium 140 mmol/L (136-145) 05/03/24 09:30 Potassium 4.0 mmol/L (3.5-5.1) 05/03/24 09:30 Chloride 109 mmol/L (98-107) H 05/03/24 09:30 Carbon Dioxide 22.0 mmol/L (21.0-32.0) 05/03/24 09:30 Anion Gap 9 (5-15) 05/03/24 03:35 BUN 56 mg/dL (7-18) H 05/03/24 09:30 Creatinine 3.11 mg/dL (0.55-1.02) H 05/03/24 09:30 Est GFR (MDRD) Af Amer 18 mL/min (>60) L 05/03/24 09:30 Est GFR (MDRD) Non-Af 15 mL/min (>60) L 05/03/24 09:30 BUN/Creatinine Ratio 18.0 RATIO (10-20) 05/03/24 09:30 Glucose 111 mg/dL (74-106) H 05/03/24 09:30 Vancomycin Trough 24.6 ug/mL (5.0-15.0) H 05/03/24 09:30 Random Vancomycin 26.5 ug/mL (0.0-15.0) H 05/03/24 03:35 Microbiology Microbiology: Microbiology 05/01/24 15:53 Sputum, Induced/Lukens Gram Stain - Final 05/01/24 15:53 Sputum, Induced/Lukens Respiratory Culture - Preliminary Appears to be normal respiratory gisela. Further studies to follow. 05/01/24 14:40 Urine Catheter - Catheter Urine Culture - Preliminary GNR lactose prop making supervisor 05/01/24 15:30 Stool Clostridioides difficile (PCR) - Final 05/01/24 16:20 Mucosa - Nasopharyngeal Respiratory Panel (PCR) - Final 05/01/24 14:40 Urine Catheter - Ahuja Legionella Antigen - Final 05/01/24 14:40 Urine Catheter - Ahuja Streptococcus pneumoniae Antigen (M - Final 05/01/24 13:10 Mucosa - Nose SARS-CoV-2, Influenza & RSV (PCR) - Final Dosing Weight Weight used for dosin kg Estimated Creatinine Clearance Estimated Creatinine Clearance: on crrt Goal Trough Goal Trough: 15-20 mcg/mL Pharmacy Plan for Drug Dosing Pharmacy Plan for Drug Dosing: Vancomycin trough this AM = 24.6, hold vancomycin, random level in 12 hours. Pharmacy Service will continue to monitor and adjust dosing as required. Follow-Up Labs Follow-Up Labs: Trough: Vancomycin Date/Time Labs Ordered Labs to be done on [date and time ordered]: 05/03/24 @ 5998
--- NOTE | 2024-05-03 11:11 | PN.RENAL_ITS ---
Subjective Subjective Remains intubated. Pressor requirements have improved significantly. As of this morning she is down to 5 mcg of Levophed. Blood pressure is pretty good, she may be able to come off Levophed completely. Not much urine output. So far urine cultures positive, most other cultures negative. Working diagnosis is septic shock related to pneumonia/UTI. CT head negative for any bleeds. We started her on low-dose heparin drip due to repeated clotting of dialysis. So far doing well. She is running lines reports. Objective Data Objective Data Vital Signs: Vital Signs Temp Pulse Resp BP Pulse Ox O2 Del Method FiO2 97.7 F L 73 15 124/54 H 96 Mechanical Ventilator 05/03/24 10:00 05/03/24 10:05/03/24 10:05/03/24 10:45 05/03/24 10:05/03/24 10:05/03/24 10:00 Oxygen Delivery Method Mechanical Ventilator Weight: 115.1 kg Body Mass Index (BMI) 49.8 Intake & Output: Intake and Output for Last 24 Hours 05/01/24 05/02/24 05/03/24 23:59 23:59 23:59 Intake Total 4954.00 / 5013.60 4731.16 / 4885.08 1181.84 / 1181.84 Output Total 50 / 50 335 / 335 60 / 60 Balance 4904.00 / 4963.60 4396.16 / 4550.08 1121.84 / 1121.84 Lab / Micro Data 05/03/24 03:35 05/03/24 09:30 Labs: Laboratory Results - last 24 hr 05/02/24 12:20: TSH 7.150 H 05/02/24 14:30: Sodium 142, Potassium 3.6, Chloride 113 H, Carbon Dioxide 18.0 L , BUN 105 H*, Creatinine 5.68 H, Estim Creat Clear Calc 8.73, Est GFR (MDRD) Af Amer 9 L, Est GFR (MDRD) Non-Af 8 L, BUN/Creatinine Ratio 18.5, Glucose 153 H, C alcium 7.0 L, Phosphorus 5.1 H, Albumin 1.9 L 05/02/24 19:47: PT 16.1 H, INR 1.3, APTT 39.9 H 05/02/24 22:23: Sodium 142, Potassium 3.4 L, Chloride 112 H, Carbon Dioxide 19.0 L, BUN 96 H, Creatinine 4.91 H, Estim Creat Clear Calc 10.10, Est GFR (MDRD) Af Amer 11 L, Est GFR (MDRD) Non-Af 9 L, BUN/Creatinine Ratio 19.6, Glucose 126 H, Calcium 7.1 L, Phosphorus 4.5, Albumin 1.8 L 05/03/24 03:35: WBC 19.5 H, RBC 2.54 L, Hgb 8.3 L, Hct 24.6 L, MCV 96.9, MCH 32.7 H, MCHC 33.7 D, RDW Std Deviation 57.2 H, RDW Coeff of Parris 16.2 H, Plt Count 145 L, MPV 11.8, Immature Gran % (Auto) 2.600 H, Neut % (Auto) 77.9 H, L ymph % (Auto) 9.8 L, [place] % (Auto) 8.4, Eos % (Auto) 0.9, Baso % (Auto) 0.4, A bsolute Neuts (auto) 15.2 H, Absolute Lymphs (auto) 1.92, Nucleated RBC % 0.3, Differential Comment SCANNED, Diff Path Review August, Sodium 140 05/03/24 03:35: Sodium 140, Potassium 4.1 05/03/24 03:35: Potassium 4.1, Chloride 110 H 05/03/24 03:35: Chloride 110 H, Carbon Dioxide 22.0 05/03/24 03:35: Carbon Dioxide 21.0, Anion Gap 9, BUN 67 H 05/03/24 03:35: BUN 67 H, Creatinine 3.72 H 05/03/24 03:35: Creatinine 3.69 H, Estim Creat Clear Calc 13.73 05/03/24 03:35: Estim Creat Clear Calc 13.84, Est GFR (MDRD) Af Amer 15 L 05/03/24 03:35: Est GFR (MDRD) Af Amer 15 L, Est GFR (MDRD) Non-Af 12 L 05/03/24 03:35: Est GFR (MDRD) Non-Af 13 L, BUN/Creatinine Ratio 18.0 05/03/24 03:35: BUN/Creatinine Ratio 18.2, Glucose 122 H 05/03/24 03:35: Glucose 120 H, Calcium 7.6 L 05/03/24 03:35: Calcium 7.6 L, Phosphorus 3.5 05/03/24 03:35: Phosphorus 3.5, Magnesium 1.6, Albumin 2.0 L, Random Vancomycin 26.5 H 05/03/24 09:30: Sodium 140, Potassium 4.0, Chloride 109 H, Carbon Dioxide 22.0, BUN 56 H, Creatinine 3.11 H, Estim Creat Clear Calc 16.43, Est GFR (MDRD) Af Amer 18 L, Est GFR (MDRD) Non-Af 15 L, BUN/Creatinine Ratio 18.0, Glucose 111 H, Calcium 7.7 L, Phosphorus 3.2, Albumin 1.8 L, Vancomycin Trough 24.6 H Micro: Microbiology 05/01/24 15:53 Sputum, Induced/Lukens Gram Stain - Final 05/01/24 15:53 Sputum, Induced/Lukens Respiratory Culture - Preliminary Appears to be normal respiratory gisela. Further studies to follow. 05/01/24 14:40 Urine Catheter - Catheter Urine Culture - Preliminary GNR lactose surgery teacher 05/01/24 15:30 Stool Clostridioides difficile (PCR) - Final 05/01/24 16:20 Mucosa - Nasopharyngeal Respiratory Panel (PCR) - Final 05/01/24 14:40 Urine Catheter - Do Legionella Antigen - Final 05/01/24 14:40 Urine Catheter - Do Streptococcus pneumoniae Antigen (M - Final 05/01/24 13:10 Mucosa - Nose SARS-CoV-2, Influenza & RSV (PCR) - Final Radiography Diagnostic Testing: Radiology Impression Brain CT 05/02/24 17:26 IMPRESSION: Mild atrophy and periventricular white matter ischemic changes. No mass or acute bleed. If concern for acute infarct MRI recommended Electronically Signed: Brennan Larkin MD at 19:11 EST Reading Location ID and State: [facility] / [place] Tel , Service support , Physical Exam Narrative no obvious distress no pallor no icterus no JVD s1s2 no murmurs lungs clear abdomen soft no organomegaly no edema no cyanosis do + Assessment & Plan Assessment/Plan (1) Complicated urinary tract infection: (2) Metabolic acidosis: (3) Acute renal failure: PLAN: CKD 3B. baseline cr around 1.6 to 1.8 JOSE presumably due to septic shock related ATN UA consistent with UTI, blood culture pending Will check renal ultrasound. Was started on CRRT 05/02/2024. Significant improvement in acidosis, hyperkalemia. Metabolic parameters are better. Septic shock is improving. If she comes off Levophed this evening, we might stop CRRT. May plan for regular dialysis tomorrow as long as pressor requirements are minimal. Overall she is net +10 L this admission. Will hold off on fluid removal for today. Hyperphosphatemia. Better Acidosis. Mixed gap and nongap. Better Hyperkalemia. Resolved.
--- NOTE | 2024-05-03 11:13 | US_ITS ---
PROCEDURE: KIDNEY AND BLADDER REASON FOR EXAM: Acute kidney injury. TECHNIQUE: Bilateral renal ultrasound. COMPARISON: None. FINDINGS: Normal renal sizes, parenchymal thicknesses, and echotextures. No hydronephrosis. No cysts or large solid renal masses. RIGHT Kidney Size: 8.5 x 4.5 x 5.4 cm Cortical Thickness (if discernible): 9 mm (>6mm is normal) LEFT Kidney: A left simple appearing renal cortical cyst is measured at 2.3 x 2.4 x 2.1 cm. Left kidney size: 9.1 x 4.7 x 4.9 cm Cortical Thickness (if discernible): 12 mm (>6mm is normal) US/Kidney and Bladder IMPRESSION: 1. The urinary bladder is not visualized. 2. No evidence of hydronephrosis. Reading Location: [id number]
[2024-05-03] MEDS: HEPARIN/D5w 25,000 UNITS 25,000 UNITS/250 ML IV.SOLN. 15 UNITS CONT INF (12:14)
--- NOTE | 2024-05-03 13:03 | CHAPLAIN ---
Type of Pastoral Visit ___ Initial Visit ___ Follow-up Visit ___ On-call Visit ___ General Patient Visit ___ Spiritual Assessment ___ Family Conference ___ Bereavement ___ Rapid Response ___ Code Blue ___ Other (describe below) Pastoral Care Referral From ___ Patient ___ Family ___ Nurse ___ Physician ___ Printing Plate Maker ___ Field Interviewer ___ Other (describe below) Sacrament/Intervention ___ Active listening ___ Anointing ___ Restorationist ___ Bereavement ___ Communion ___ Jade exploration ___ ___ Life review ___ Prayer ___ Reconciliation ___ Sacrament of Sick ___ Supportive presence ___ Wedding ___ Other (describe below) Pastoral Comments patient remains on the vent and no family is present of which to support
[2024-05-03 17:34] LABS: Albumin, Serum 1.8 g/dL (3.2-5.0); BUN 40 mg/dL (7-18); Calcium,Total 7.9 mg/dL (8.5-10.1); Chloride 106 mmol/L (98-107); Creatinine, Serum 2.35 mg/dL (0.55-1.02); EST Glomerular Filtration Rate 21 mL/min (>60); Est Glom Filt Rate - Afr Amer 26 mL/min (>60); Estimated Creatinine Clearance 21.74 ml/min; Glucose 105 mg/dL (74-106); Phosphorus 2.4 mg/dL (2.5-4.9); Sodium Level 139 mmol/L (136-145)
[2024-05-03 22:14] LABS: Vancomycin, Random Level 20.8 ug/mL (0.0-15.0)
[2024-05-04] VITALS (36 sets, daily range): BP systolic 26–148; BP diastolic 46–69; PULSE 68–93; RESP 13–20; TEMP 37–37.7; O2SAT 94–98; BMI 49.8
--- NOTE | 2024-05-04 02:34 | PCM.RX.CS ---
Consult Antibiotic Management Pharmacy has been consulted to manage selected antibiotic: Vancomycin Type of Intervention Type of Consult: Follow-up Labs Labs: Sodium 139 mmol/L (136-145) 05/03/24 17:00 Potassium 4.0 mmol/L (3.5-5.1) 05/03/24 17:00 Chloride 106 mmol/L (98-107) 05/03/24 17:00 Carbon Dioxide 24.0 mmol/L (21.0-32.0) 05/03/24 17:00 Anion Gap 9 (5-15) 05/03/24 03:35 BUN 40 mg/dL (7-18) H 05/03/24 17:00 Creatinine 2.35 mg/dL (0.55-1.02) H 05/03/24 17:00 Est GFR (MDRD) Af Amer 26 mL/min (>60) L 05/03/24 17:00 Est GFR (MDRD) Non-Af 21 mL/min (>60) L 05/03/24 17:00 BUN/Creatinine Ratio 17.0 RATIO (10-20) 05/03/24 17:00 Glucose 105 mg/dL (74-106) 05/03/24 17:00 Vancomycin Trough 24.6 ug/mL (5.0-15.0) H 05/03/24 09:30 Random Vancomycin 20.8 ug/mL (0.0-15.0) H 05/03/24 21:42 Microbiology Microbiology: Microbiology 05/01/24 12:49 Blood Culture (Wb) - Left Forearm Blood Culture - Preliminary No growth in 48 hours. 05/01/24 15:53 Sputum, Induced/Lukens Gram Stain - Final 05/01/24 15:53 Sputum, Induced/Lukens Respiratory Culture - Preliminary Appears to be normal respiratory gisela. Further studies to follow. 05/01/24 14:40 Urine Catheter - Catheter Urine Culture - Preliminary GNR lactose contract lead 05/01/24 15:30 Stool Clostridioides difficile (PCR) - Final 05/01/24 16:20 Mucosa - Nasopharyngeal Respiratory Panel (PCR) - Final 05/01/24 14:40 Urine Catheter - Ahuja Legionella Antigen - Final 05/01/24 14:40 Urine Catheter - Ahuja Streptococcus pneumoniae Antigen (M - Final 05/01/24 13:10 Mucosa - Nose SARS-CoV-2, Influenza & RSV (PCR) - Final Goal Trough Goal Trough: 15-20 mcg/mL Pharmacy Plan for Drug Dosing Pharmacy Plan for Drug Dosing: Pharmacy Service will continue to monitor and adjust dosing as required. RANDOM LEVEL 20.8. DRAW RANDOM LEVEL IN 8 HOURS Follow-Up Labs Follow-Up Labs: Trough: Vancomycin Date/Time Labs Ordered Labs to be done on [date and time ordered]: 05/04 @ 0600
[2024-05-04] MEDS: fentaNYL drip 100 ML 10 MCG CONT INF (02:55)
[2024-05-04] MEDS: Amiodarone 360 MG in Dextrose 5% Viaflo Bag 192.8 ML 16.7 MG CONT INF ×2 (02:56→14:58)
[2024-05-04] MEDS: CHLORHEXIDINE GLUC 2% CLOTH 1 EACH TOWELETTE TOPICAL (02:56)
[2024-05-04] MEDS: 0.9% Saline Lock 10 ML Syringe IV ×5 (02:56→15:33)
[2024-05-04 03:55] LABS: Absolute Lymphocyte Count 2.03 X10^3/uL (0.83-4.51); Absolute Neutrophil Count 9.8 X10^3/uL (2.0-7.7); Basophil# 0.04 X10^3/uL; Basophil% 0.3 % (0-1); Eosinophil# 0.18 X10^3/uL; Eosinophils% 1.3 % (0-5); Hematocrit 18.8 % (37-47); Hemoglobin 6.3 g/dL (12.0-15.0); Lymphocyte # 2.03 X10^3/ul (0.83-4.51); Lymphocyte % 14.6 % (19-41); Mean Corp Hgb Conc 33.5 g/dL (32-36); Mean Corpuscular Hgb 32.3 pg (27.0-32.0); Mean Corpuscular Volume 96.4 fL (81-99); Mean Platelet Vol. 11.6 fl (6.2-12.0); Monocyte# 1.14 X10^3/uL; Monocyte% 8.2 % (0-10); NRBC Flagged by Analyzer 1.7 % (0-5); Neutrophil # 9.82 X10^3/uL (2.7-7.7); Neutrophil % 70.9 % (47-70); POSITIVE COUNT YES; Platelet Count 99 K/mm3 (150-450); RBC Distribution Width CV 16.3 % (11.6-14.6); RBC Distribution Width SD 57.5 fl (35.1-43.9); Red Blood Count 1.95 M/mm3 (4.2-5.4); White Blood Count 13.9 K/mm3 (4.4-11.0)
[2024-05-04 04:05] LABS: Differential Indicated SCAN CRITERIA MET
[2024-05-04 04:13] LABS: Anion Gap 9 (5-15); BUN 45 mg/dL (7-18); BUN/Creat Ratio 15.6 RATIO (10-20); Calcium,Total 7.5 mg/dL (8.5-10.1); Chloride 106 mmol/L (98-107); Creatinine, Serum 2.88 mg/dL (0.55-1.02); EST Glomerular Filtration Rate 17 mL/min (>60); Est Glom Filt Rate - Afr Amer 20 mL/min (>60); Estimated Creatinine Clearance 17.75 ml/min; Glucose 104 mg/dL (74-106); Potassium 3.9 mmol/L (3.5-5.1); Sodium Level 139 mmol/L (136-145)
[2024-05-04 04:14] LABS: Vancomycin, Random Level 20.6 ug/mL (0.0-15.0)
[2024-05-04] MEDS: Levothyroxine 125 MCG Tablet PO (04:57)
--- NOTE | 2024-05-04 05:03 | PCM.RX.CS ---
Consult Antibiotic Management Pharmacy has been consulted to manage selected antibiotic: Vancomycin Type of Intervention Type of Consult: Follow-up Labs Labs: Sodium 139 mmol/L (136-145) 05/04/24 03:43 Potassium 3.9 mmol/L (3.5-5.1) 05/04/24 03:43 Chloride 106 mmol/L (98-107) 05/04/24 03:43 Carbon Dioxide 23.0 mmol/L (21.0-32.0) 05/04/24 03:43 Anion Gap 9 (5-15) 05/04/24 03:43 BUN 45 mg/dL (7-18) H 05/04/24 03:43 Creatinine 2.88 mg/dL (0.55-1.02) H 05/04/24 03:43 Est GFR (MDRD) Af Amer 20 mL/min (>60) L 05/04/24 03:43 Est GFR (MDRD) Non-Af 17 mL/min (>60) L 05/04/24 03:43 BUN/Creatinine Ratio 15.6 RATIO (10-20) 05/04/24 03:43 Glucose 104 mg/dL (74-106) 05/04/24 03:43 Vancomycin Trough 24.6 ug/mL (5.0-15.0) H 05/03/24 09:30 Random Vancomycin 20.6 ug/mL (0.0-15.0) H 05/04/24 03:43 Microbiology Microbiology: Microbiology 05/01/24 12:49 Blood Culture (Wb) - Left Forearm Blood Culture - Preliminary No growth in 48 hours. 05/01/24 15:53 Sputum, Induced/Lukens Gram Stain - Final 05/01/24 15:53 Sputum, Induced/Lukens Respiratory Culture - Preliminary Appears to be normal respiratory gisela. Further studies to follow. 05/01/24 14:40 Urine Catheter - Catheter Urine Culture - Preliminary GNR lactose rental management trainee 05/01/24 15:30 Stool Clostridioides difficile (PCR) - Final 05/01/24 16:20 Mucosa - Nasopharyngeal Respiratory Panel (PCR) - Final 05/01/24 14:40 Urine Catheter - Ahuja Legionella Antigen - Final 05/01/24 14:40 Urine Catheter - Ahuja Streptococcus pneumoniae Antigen (M - Final 05/01/24 13:10 Mucosa - Nose SARS-CoV-2, Influenza & RSV (PCR) - Final Goal Trough Goal Trough: 15-20 mcg/mL Pharmacy Plan for Drug Dosing Pharmacy Plan for Drug Dosing: Pharmacy Service will continue to monitor and adjust dosing as required. LAB DRAWN EARLY, BUT STILL OVER 20. DRAW RANDOM LEVEL IN 8 HOURS
[2024-05-04 05:12] LABS: Platelet Estimate SLT DEC (ADEQ); Stomatocyte 1+; Target Cells 1+
--- NOTE | 2024-05-04 07:37 | PN.HOSP_ITS ---
Reason for Visit Reason for Visit: Diagnoses Sepsis, unspecified organism (05/01/24) Acidosis, unspecified (05/01/24) Acute kidney failure, unspecified (05/01/24) Urinary tract infection, site not specified (05/01/24) Shock, unspecified (05/01/24) Severe sepsis with septic shock (05/01/24) Objective Data Objective Data Vital Signs: Vital Signs Temp Pulse Resp BP Pulse Ox O2 Del Method FiO2 99.1 F 75 14 110/52 L 96 Mechanical Ventilator 05/04/24 07:00 05/04/24 07:00 05/04/24 07:00 05/04/24 07:00 05/04/24 07:00 05/04/24 07:00 05/04/24 07:00 Oxygen Delivery Method Mechanical Ventilator Weight: 253 lb 15.56 oz Body Mass Index (BMI) 49.8 Intake & Output: Intake and Output for Last 24 Hours 05/02/24 05/03/24 05/04/24 23:59 23:59 23:59 Intake Total 4731.16 / 4885.08 2152.12 / 2296.28 586.15 / 586.15 Output Total 335 / 335 1480 / 1480 100 / 100 Balance 4396.16 / 4550.08 672.12 / 816.28 486.15 / 486.15 Lab / Micro Data 05/04/24 10:38 05/04/24 03:43 Labs: Laboratory Results - last 24 hr 05/03/24 09:30: Sodium 140, Potassium 4.0, Chloride 109 H, Carbon Dioxide 22.0, BUN 56 H, Creatinine 3.11 H, Estim Creat Clear Calc 16.43, Est GFR (MDRD) Af Amer 18 L, Est GFR (MDRD) Non-Af 15 L, BUN/Creatinine Ratio 18.0, Glucose 111 H, Calcium 7.7 L, Phosphorus 3.2, Albumin 1.8 L, Vancomycin Trough 24.6 H 05/03/24 17:00: Sodium 139, Potassium 4.0, Chloride 106, Carbon Dioxide 24.0, B UN 40 H, Creatinine 2.35 H, Estim Creat Clear Calc 21.74, Est GFR (MDRD) Af Amer 26 L, Est GFR (MDRD) Non-Af 21 L, BUN/Creatinine Ratio 17.0, Glucose 105, C alcium 7.9 L, Phosphorus 2.4 L, Albumin 1.8 L 05/03/24 21:42: Random Vancomycin 20.8 H 05/04/24 03:43: WBC 13.9 H, RBC 1.95 L, Hgb 6.3 L, Hct 18.8 L, MCV 96.4, MCH 32.3 H, MCHC 33.5, RDW Std Deviation 57.5 H, RDW Coeff of Parris 16.3 H, Plt Count 99 L, MPV 11.6, Immature Gran % (Auto) 4.700 H, Neut % (Auto) 70.9 H, Lymph % (Auto) 14.6 L, [place] % (Auto) 8.2, Eos % (Auto) 1.3, Baso % (Auto) 0.3, Absolute Neuts (auto) 9.8 H, Absolute Lymphs (auto) 2.03, Nucleated RBC % 1.7, Platelet Estimate SLT DEC, Target Cells 1+, Stomatocytes 1+, Sodium 139, Potassium 3.9, Chloride 106, Carbon Dioxide 23.0, Anion Gap 9, BUN 45 H, Creatinine 2.88 H, Estim Creat Clear Calc 17.75, Est GFR (MDRD) Af Amer 20 L, Est GFR (MDRD) Non-Af 17 L, BUN/Creatinine Ratio 15.6, Glucose 104, Calcium 7.5 L, Random Vancomycin 20.6 H 05/04/24 04:55: Blood Type AB POSITIVE, Antibody Screen NEGATIVE, Crossmatch See Detail Micro: Microbiology 05/01/24 12:49 Blood Culture (Wb) - Left Forearm Blood Culture - Preliminary No growth in 48 hours. 05/01/24 15:53 Sputum, Induced/Lukens Gram Stain - Final 05/01/24 15:53 Sputum, Induced/Lukens Respiratory Culture - Preliminary Appears to be normal respiratory gisela. Further studies to follow. 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 The urinary bladder is not visualized. 2. No evidence of hydronephrosis. Reading Location: [address] Physical Exam Narrative Seen and examined. Still intubated,still obtuned, not responsive, hardly opens eye Physical exam General: Obtunded, on fentanyl drip. Not responsive HEENT: Atraumatic, PERRLA, EOMI, Normocephalic Oral: ET and OG Neck: Right IJ CVC catheter and left IJ hemodialysis cath Supple, Chest wall/Lungs: Air entry diminished in bilateral lung bases. On vent support no crepitation/rhonchi Cardiovascular: Regular rate, Regular Rhythm, Normal S1, Normal S2, No M/G/R Abdomen: Bowel Sounds Present, Soft, Non Tender, Non-Distended : Ahuja catheter. On hemodialysis, oliguria no renal angle tenderness. No suprapubic tenderness. Extremities: No edema, Capillary Refill Less than 3 Seconds Skin: No rashes, No breakdown Musculoskeletal: No Tenderness to Palpation of Joints or Extremities Neurological: Cranial nerves II-XII grossly intact, DTR 2+/4. No acute focal neurological deficit. Psych/Mental Status: Mainly unresponsive hardly opening eyes Const Orientation / Consciousness: disoriented and lethargic Resp Resp Narrative: Air entry diminished bilaterally. On vent support. Cardio Cardio Narrative: S1-S2 regular GI GI Narrative: Soft, bowel sound present, nontender Extremity Extremity Narrative: Bilateral lower extremity edema. Left knee surgical scar with skin graft. Neuro Neuro Narrative: On fentanyl drip. Hardly opens eyes. Assessment & Plan Assessment/Plan (1) Shock: PLAN: Plan Patient is an 83-year-old lady who was admitted with altered mental status. Patient was found to be in acute respiratory failure resulting in patient being intubated in the ED. An assessment of septic shock as well as acute kidney injury with severe metabolic acidosis made admitted to the intensive care unit for further management 1. t septic shock -Patient presented with respiratory failure, renal failure, hypotension and had elevated white blood cell count with left shift . Patient given 30 cc/kg bolus in the ED and required right IJ placement and Levophed administration, patient was started on broad-spectrum antibiotic therapy with vancomycin and Levaquin 01/02: Patient has been weaned off vasopressor support. On antimicrobial agent #2. Acute cystitis due to E. coli ? Patient presented with septic shock management as discussed above 3. Acute hypoxic respiratory failure ? Patient was reported to be saturating 65% on room air was placed on 15 L nonrebreather by the squad without much improvement eventually intubated in the ED admitted to the intensive care unit initial vent settings written by admitting physician and subsequent management deferred to nailer machine 4. Acute kidney injury ? Superimposed on chronic kidney disease stage IIIb with severe metabolic acidosis as well as hyperkalemia. Patient was treated with bicarb consultation placed to nephrology with plans for patient to undergo CRRT ? 04/25/2024;Patient had temporary dialysis catheter placed with initiation of CRRT 05/04: Remains oliguric. CRRT changed to hemodialysis today. Being followed by talent solutions manager. Mixed anion gap and non-anion gap metabolic acidosis. Hyperkalemia resolved. Overall appears edematous with net positive fluid balance since admission 5. Anemia ? Secondary to chronic disorder monitoring H&H and transfuse if patient becomes symptomatic or hemoglobin falls below 7 05/04 hemoglobin 6.4. transfuse a unit during hemodialysis 6. Chronic congestive heart failure with preserved ejection fraction ? Patient is on furosemide held on admission given her presentation 7. Essential hypertension ? Patient presented with septic shock antihypertensives held 8. Hypothyroidism ? Patient is on levothyroxine home dose continued 9. GERD ? Patient is a PPI 10. Class III obesity with BMI of 49.8 ? Complicating care plan is to patient financial counselor patient on weight loss following her extubation 11. DVT prophylaxis ? Subcu heparin Total time of the visit including total time spent in counseling or coordination of care, (more than 50% of the total time, spent in obtaining medical information from nurses and other ancillary care providers ,explaining to the patient about labs, imaging, diagnosis and management of active complex medical conditions), , review of labs and imaging is 45 minutes. Charges/Coding Visit Charges Inpatient E&M: 95838 Subs Hosp L3
--- NOTE | 2024-05-04 07:45 | PN.CC_ITS ---
Assessment & Plan Assessment/Plan (1) Septic shock: (2) Acute renal failure: PLAN: Plan RECOMMENDATIONS: 1. Continue assist-control mode mechanical ventilation. 2. Hold all sedating medications for now. 3. Dialysis support per nephrology recommendations. 4. Transfuse blood products as ordered. Check H&H posttransfusion. 5. Check stool for occult blood. 6. Continue PPI therapy. 7. Continue antimicrobials as ordered. 8. Check TSH and ammonia. Obtain EEG. IMPRESSIONS: 1. Acute hypoxemic respiratory failure Clinical concern for underlying pneumonia as precipitating etiology. The patient remains intubated and will be continued on assist-control mode of mechanical ventilation. Recommend holding off on attempts at weaning from invasive mechanical ventilatory support until her underlying acid-base status has improved with CRRT. In the interim, continue to minimize sedating medications as feasible. 2. Septic shock The patient presented to the hospital with sepsis due to suspected pneumonia and/or UTI with acute sepsis related organ dysfunction as evidenced by acute kidney injury, fluid refractory hypotension requiring vasopressor support and acute respiratory failure requiring mechanical ventilation. The patient has since been weaned from vasopressor support and remains hemodynamically stable at the present time. Antimicrobials will be continued as ordered. 3. Encephalopathy Unclear etiology. CT head completed on May 02 was unremarkable. Acid-base status has improved on follow-up ABG. Will continue to hold all sedation for now. Plan to check TSH and ammonia level. EEG will be obtained. If all of the aforementioned is unremarkable, we will consider MRI brain. 4. Anemia The patient has developed worsening anemia with a hemoglobin of 6.3 g/dL this morning. Plan to transfuse 1 unit of packed red blood cells as ordered. H&H will be checked posttransfusion. In the interim, will check stool for occult blood. Heparin has been discontinued. Continue PPI therapy. If anemia continues to worsen, will consider GI consultation. 5. Acute on chronic kidney disease Most likely prerenal in etiology with concern for ischemic ATN in the setting of #2. Plan to continue dialysis support per nephrology recommendations. 6. History of heart failure with preserved ejection fraction/neuropathy/hypothyroidism/hypertension/GERD Complicates care, management, recovery and prognosis. Continue supportive measures as noted above. TIME: 38 minutes of critical care time, independent of procedures, was spent addressing the patient's acute hypoxemic respiratory failure, septic shock, acute on chronic kidney disease, metabolic acidosis, review of all data and collaboration with the care team. Subjective Subjective The patient was seen and examined at the bedside this morning. Events from the last 24 hours have been reviewed. The patient is currently afebrile, hemodynamically stable and maintaining appropriate oxygen saturations on assist- control mode mechanical ventilation with an FiO2 requirement of 25% and PEEP of 5. The patient CRRT concluded early this morning and there are tentative plans to proceed with conventional hemodialysis. The patient is currently documented to be overall net +10.5 L for the hospitalization. Despite her sedation currently being on hold, the patient is minimally responsive and will only open her eyes without any other meaningful movement. Repeat blood gas obtained this morning demonstrated a pH of 7.54 with a pCO2 of 26 and pO2 of 78. White blood cell count remains elevated at 14,000. Hemoglobin dropped to 6.3 g/dL this morning. Platelet count remains low at 99,000. Objective Data Objective Data The patient's most recent lab work, culture data and imaging studies have all been personally reviewed. Surface echocardiogram from August 2021 demonstrated stage I diastolic dysfunction. Blood cultures are pending. Preliminary urine culture is demonstrating growth of a gram-negative nancy. COVID, influenza and RSV PCR's were negative. Vital Signs: Vital Signs Temp Pulse Resp BP Pulse Ox O2 Del Method FiO2 99.1 F 75 14 110/52 L 96 Mechanical Ventilator 05/04/24 07:00 05/04/24 07:00 05/04/24 07:00 05/04/24 07:00 05/04/24 07:00 05/04/24 07:00 05/04/24 07:00 Oxygen Delivery Method Mechanical Ventilator Weight: 253 lb 15.56 oz Body Mass Index (BMI) 49.8 Intake & Output: Intake and Output for Last 24 Hours 05/02/24 05/03/24 05/04/24 23:59 23:59 23:59 Intake Total 4731.16 / 4885.08 2152.12 / 2296.28 586.15 / 586.15 Output Total 335 / 335 1480 / 1480 100 / 100 Balance 4396.16 / 4550.08 672.12 / 816.28 486.15 / 486.15 Lab / Micro Data Attestation: I reviewed the patient's lab results. 05/04/24 03:43 05/04/24 03:43 Labs: Laboratory Results - last 24 hr 05/03/24 09:30: Sodium 140, Potassium 4.0, Chloride 109 H, Carbon Dioxide 22.0, BUN 56 H, Creatinine 3.11 H, Estim Creat Clear Calc 16.43, Est GFR (MDRD) Af Amer 18 L, Est GFR (MDRD) Non-Af 15 L, BUN/Creatinine Ratio 18.0, Glucose 111 H, Calcium 7.7 L, Phosphorus 3.2, Albumin 1.8 L, Vancomycin Trough 24.6 H 05/03/24 17:00: Sodium 139, Potassium 4.0, Chloride 106, Carbon Dioxide 24.0, B UN 40 H, Creatinine 2.35 H, Estim Creat Clear Calc 21.74, Est GFR (MDRD) Af Amer 26 L, Est GFR (MDRD) Non-Af 21 L, BUN/Creatinine Ratio 17.0, Glucose 105, C alcium 7.9 L, Phosphorus 2.4 L, Albumin 1.8 L 05/03/24 21:42: Random Vancomycin 20.8 H 05/04/24 03:43: WBC 13.9 H, RBC 1.95 L, Hgb 6.3 L, Hct 18.8 L, MCV 96.4, MCH 32.3 H, MCHC 33.5, RDW Std Deviation 57.5 H, RDW Coeff of Parris 16.3 H, Plt Count 99 L, MPV 11.6, Immature Gran % (Auto) 4.700 H, Neut % (Auto) 70.9 H, Lymph % (Auto) 14.6 L, [place] % (Auto) 8.2, Eos % (Auto) 1.3, Baso % (Auto) 0.3, Absolute Neuts (auto) 9.8 H, Absolute Lymphs (auto) 2.03, Nucleated RBC % 1.7, Platelet Estimate SLT DEC, Target Cells 1+, Stomatocytes 1+, Sodium 139, Potassium 3.9, Chloride 106, Carbon Dioxide 23.0, Anion Gap 9, BUN 45 H, Creatinine 2.88 H, Estim Creat Clear Calc 17.75, Est GFR (MDRD) Af Amer 20 L, Est GFR (MDRD) Non-Af 17 L, BUN/Creatinine Ratio 15.6, Glucose 104, Calcium 7.5 L, Random Vancomycin 20.6 H 05/04/24 04:55: Blood Type AB POSITIVE, Antibody Screen NEGATIVE, Crossmatch See Detail Micro: Microbiology 05/01/24 12:49 Blood Culture (Wb) - Left Forearm Blood Culture - Preliminary No growth in 48 hours. 05/01/24 15:53 Sputum, Induced/Lukens Gram Stain - Final 05/01/24 15:53 Sputum, Induced/Lukens Respiratory Culture - Preliminary Appears to be normal respiratory gisela. Further studies to follow. 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 The urinary bladder is not visualized. 2. No evidence of hydronephrosis. Reading Location: [address] Physical Exam Const Constitutional Narrative: Remains intubated and mechanically ventilated. Morbidly obese. General Appearance: ill appearing HEENT normocephalic and head/scalp atraumatic Mouth: endotracheal tube in place and OG tube in place Eyes PERRL, EOMs intact bilaterally and conjunctivae normal Neck supple General: trachea midline and CVC in place Chest inspection of chest normal Resp Auscultation: diminished lung sounds; Negative for rales, rhonchi or wheezes Cardio regular rate and regular rhythm GI normal to inspection, nondistended, normoactive bowel sounds Extremity General Extremity: edema; Negative for clubbing Skin no rashes or lesions noted Neuro Neuro Narrative: Sedation is currently on hold. The patient will open her eyes to verbal stimulation but will not track or follow simple commands. Charges/Coding Procedures Hospitalists Procedures: [id number] Critical Care 1st Hr
[2024-05-04 08:31] LABS: Allen Test Positive; Base Excess 0 mmol/L (-2 to +2); Bicarbonate 22.8 mmol/L (22-26); Blood Gas Specimen Type ART; Mode AC/PC; O2 Delivery Device Adult Vent; PEEP 5; PIP 20; PO2 78 mmHG (75-100); RR 14; SITE L Radial; SO2 97 % (95-99); Total Carbon Dioxide 24 mmol/L; pCO2 26.4 mmHg (35-45); pH 7.54 (7.35-7.45)
[2024-05-04] MEDS: Pantoprazole Sodium 40 MG in 0.9% Normal Saline (100mL MB+) 100 ML 330 MG IV (09:42)
[2024-05-04] MEDS: Chlorhexidine 15 ML PO (09:42)
[2024-05-04] MEDS: levoFLOXacin IV 500 MG/100 ML BAG 100 MG IV (10:21)
[2024-05-04 10:46] LABS: Hematocrit 19.7 % (37-47); Hemoglobin 6.4 g/dL (12.0-15.0)
--- NOTE | 2024-05-04 10:52 | PN.RENAL_ITS ---
Subjective Subjective Remains intubated. She is off Levophed since yesterday. Blood pressure is acceptable. Remains oliguric. Hemoglobin dropped overnight. As per my discussion with ICU staff, no obvious bleeding. Abdomen looks relatively soft. No melena. Possibly blood transfusion today. Overall appears edematous, significantly net positive since admission. Electrolytes are acceptable. So far only culture positive with urine culture positive for E. coli. Objective Data Objective Data Vital Signs: Vital Signs Temp Pulse Resp BP Pulse Ox O2 Del Method FiO2 99.1 F 75 16 110/52 L 96 Mechanical Ventilator 05/04/24 07:00 05/04/24 09:15 05/04/24 09:15 05/04/24 07:00 05/04/24 09:15 05/04/24 07:00 05/04/24 07:00 Oxygen Delivery Method Mechanical Ventilator Weight: 115.2 kg Body Mass Index (BMI) 49.8 Intake & Output: Intake and Output for Last 24 Hours 05/02/24 05/03/24 05/04/24 23:59 23:59 23:59 Intake Total 4731.16 / 4885.08 2152.12 / 2296.28 706.15 / 706.15 Output Total 335 / 335 1480 / 1480 160 / 160 Balance 4396.16 / 4550.08 672.12 / 816.28 546.15 / 546.15 Lab / Micro Data 05/04/24 03:43 05/04/24 03:43 Labs: Laboratory Results - last 24 hr 05/03/24 17:00: Sodium 139, Potassium 4.0, Chloride 106, Carbon Dioxide 24.0, B UN 40 H, Creatinine 2.35 H, Estim Creat Clear Calc 21.74, Est GFR (MDRD) Af Amer 26 L, Est GFR (MDRD) Non-Af 21 L, BUN/Creatinine Ratio 17.0, Glucose 105, C alcium 7.9 L, Phosphorus 2.4 L, Albumin 1.8 L 05/03/24 21:42: Random Vancomycin 20.8 H 05/04/24 03:43: WBC 13.9 H, RBC 1.95 L, Hgb 6.3 L, Hct 18.8 L, MCV 96.4, MCH 32.3 H, MCHC 33.5, RDW Std Deviation 57.5 H, RDW Coeff of Parris 16.3 H, Plt Count 99 L, MPV 11.6, Immature Gran % (Auto) 4.700 H, Neut % (Auto) 70.9 H, Lymph % (Auto) 14.6 L, [place] % (Auto) 8.2, Eos % (Auto) 1.3, Baso % (Auto) 0.3, Absolute Neuts (auto) 9.8 H, Absolute Lymphs (auto) 2.03, Nucleated RBC % 1.7, Platelet Estimate SLT DEC, Target Cells 1+, Stomatocytes 1+, Sodium 139, Potassium 3.9, Chloride 106, Carbon Dioxide 23.0, Anion Gap 9, BUN 45 H, Creatinine 2.88 H, Estim Creat Clear Calc 17.75, Est GFR (MDRD) Af Amer 20 L, Est GFR (MDRD) Non-Af 17 L, BUN/Creatinine Ratio 15.6, Glucose 104, Calcium 7.5 L, Random Vancomycin 20.6 H 05/04/24 04:55: Blood Type AB POSITIVE, Antibody Screen NEGATIVE, Crossmatch See Detail Micro: Microbiology 05/01/24 15:53 Sputum, Induced/Lukens Gram Stain - Final 05/01/24 15:53 Sputum, Induced/Lukens Respiratory Culture - Final Mixed normal respiratory gisela. No Streptococcus pneumoniae, beta-hemolytic Streptococcus or Staphylococcus aureus isolated. 05/01/24 14:40 Urine Catheter - Catheter Urine Culture - Final Escherichia coli 05/01/24 12:49 Blood Culture (Wb) - Left Forearm Blood Culture - Preliminary No growth in 48 hours. 05/01/24 15:30 Stool Clostridioides difficile (PCR) - Final 05/01/24 16:20 Mucosa - Nasopharyngeal Respiratory Panel (PCR) - Final 05/01/24 14:40 Urine Catheter - Do Legionella Antigen - Final 05/01/24 14:40 Urine Catheter - Do Streptococcus pneumoniae Antigen (M - Final 05/01/24 13:10 Mucosa - Nose SARS-CoV-2, Influenza & RSV (PCR) - Final ABG Data ABG results: ABG 05/04/24 08:28 Specimen Type ART Sample Site L Radial pH 7.54 H Bicarbonate Actual 22.8 Total CO2 24 Base Excess 0 O2 Saturation 97 O2 % 25.0 ABG pCO2 26.4 L ABG pO2 78 Alfredo Test Positive Respiration Rate 14 O2 Delivery Device Adult Vent Vent Mode AC/PC POC PEEP 5 Peak Inspir Pressure 20 Radiography Diagnostic Testing: Radiology Impression Renal Ultrasound 05/03/24 11:13 IMPRESSION: 1. The urinary bladder is not visualized. 2. No evidence of hydronephrosis. Reading Location: [address] Physical Exam Narrative no obvious distress no pallor no icterus no JVD s1s2 no murmurs lungs clear abdomen soft no organomegaly no edema no cyanosis do + Assessment & Plan Assessment/Plan (1) Complicated urinary tract infection: (2) Metabolic acidosis: (3) Acute renal failure: PLAN: CKD 3B. baseline cr around 1.6 to 1.8 JOSE presumably due to septic shock related ATN UA consistent with UTI, urine culture with E. coli, blood cultures negative Renal ultrasound no hydronephrosis, no evidence of pyelonephritis Was started on CRRT 05/02/2024. Significant improvement in acidosis, hyperkalemia. Metabolic parameters are better. Taken off CRRT 05/03/2024. Today she is off pressors. Blood pressure is acceptable. Overall edematous. Will plan for ultrafiltration and fluid removal as tolerated likely dialysis tomorrow. Hyperphosphatemia. Better Acidosis. Mixed gap and nongap. Better Hyperkalemia. Resolved. Discussed with ICU attending
[2024-05-04] MEDS: Norepinephrine 8 MG in 0.9% Normal Saline (250mL Bag) 242 ML 9.4 MG CONT INF (11:30)
[2024-05-04 12:10] LABS: Vancomycin, Random Level 17.9 ug/mL (0.0-15.0)
--- NOTE | 2024-05-04 12:33 | PHA.PHARE_ITS ---
Consult Antibiotic Management Pharmacy has been consulted to manage selected antibiotic: Vancomycin Type of Intervention Type of Consult: Follow-up Prior Doses of Antibiotics Prior Doses of Antibiotics Received/Current Regimen: not on scheduled dose currently but the most recent dose was 1000mg IV given on 05/02/24 at 21:56 Labs Labs: Sodium 139 mmol/L (136-145) 05/04/24 03:43 Potassium 3.9 mmol/L (3.5-5.1) 05/04/24 03:43 Chloride 106 mmol/L (98-107) 05/04/24 03:43 Carbon Dioxide 23.0 mmol/L (21.0-32.0) 05/04/24 03:43 Anion Gap 9 (5-15) 05/04/24 03:43 BUN 45 mg/dL (7-18) H 05/04/24 03:43 Creatinine 2.88 mg/dL (0.55-1.02) H 05/04/24 03:43 Est GFR (MDRD) Af Amer 20 mL/min (>60) L 05/04/24 03:43 Est GFR (MDRD) Non-Af 17 mL/min (>60) L 05/04/24 03:43 BUN/Creatinine Ratio 15.6 RATIO (10-20) 05/04/24 03:43 Glucose 104 mg/dL (74-106) 05/04/24 03:43 Vancomycin Trough 24.6 ug/mL (5.0-15.0) H 05/03/24 09:30 Random Vancomycin 17.9 ug/mL (0.0-15.0) H 05/04/24 11:38 Microbiology Microbiology: Microbiology 05/01/24 15:53 Sputum, Induced/Lukens Gram Stain - Final 05/01/24 15:53 Sputum, Induced/Lukens Respiratory Culture - Final Mixed normal respiratory gisela. No Streptococcus pneumoniae, beta-hemolytic Streptococcus or Staphylococcus aureus isolated. 05/01/24 14:40 Urine Catheter - Catheter Urine Culture - Final Escherichia coli 05/01/24 12:49 Blood Culture (Wb) - Left Forearm Blood Culture - Preliminary No growth in 48 hours. 05/01/24 15:30 Stool Clostridioides difficile (PCR) - Final 05/01/24 16:20 Mucosa - Nasopharyngeal Respiratory Panel (PCR) - Final 05/01/24 14:40 Urine Catheter - Ahuja Legionella Antigen - Final 05/01/24 14:40 Urine Catheter - Ahuja Streptococcus pneumoniae Antigen (M - Final 05/01/24 13:10 Mucosa - Nose SARS-CoV-2, Influenza & RSV (PCR) - Final Dosing Weight Weight used for dosin lb 15.56 oz Estimated Creatinine Clearance Estimated Creatinine Clearance: 17.7ml/min Goal Trough Goal Trough: 15-20 mcg/mL Pharmacy Plan for Drug Dosing Pharmacy Plan for Drug Dosing: The vanc random level drawn at 11:38 today was 17.9. The patient was started on dialysis today so per [facility] protocol for dosing vanc in HD patients, will enter a dose of 500mg X1 to be given after dialysis today (since level between 15-20). Will order another random level for tomorrow morning in the event the patient gets dialysis again tomorrow, which is likely per nephrology note. Pharmacy Service will continue to monitor and adjust dosing as required. Follow-Up Labs Follow-Up Labs: Trough: Vancomycin (random) Date/Time Labs Ordered Labs to be done on [date and time ordered]: 05/05/24 0600
--- NOTE | 2024-05-04 14:11 | PCM.PN.BLA ---
Progress Note I received text notification from Dr. Naina Bello ([facility] neurology) indicating that the patient's EEG that was completed this morning demonstrated status epilepticus. It was recommended that the patient be loaded with Keppra 60 mg/kg and that the patient be transferred to [facility]. These findings and recommendations were conveyed to Dr. Harrell.
--- NOTE | 2024-05-04 14:16 | CASEMGMT ---
See Dr. Davies's note. Dr. Harrell notified of the updated [employer] MCR guidelines. The MD reports that the pt is in a status ellipticus and requires emergent transfer. The MD has started this process urgently.
[2024-05-04] MEDS: Heparin 10,000 UNITS/10 ML Vial IV (14:44)
[2024-05-04] MEDS: 0.9% Normal Saline 1,000 ML IV.SOLN. 1000 ML OPERA.SITE (14:45)
[2024-05-04] MEDS: NORMAL SALINE 0.9% IV (14:51)
[2024-05-04] MEDS: LEVETIRACETAM IV (14:51)
[2024-05-04] MEDS: Propofol 10MG/Ml 1,000 MG/100 ML Bottle 6.4 MG CONT INF (14:55)
--- NOTE | 2024-05-04 14:56 | CON.PCM.NE_ITS ---
Assessment and Plan: Neuro Assessment/Plan MARI LOPEZ is a 83 F with a past medical history of history of stage I diastolic dysfunction, GERD, hypertension, hypothyroidism, TADEO, who was brought in altered and hypotensive and subsequently found to be septic and have acute renal failure placed on CRRT, today being evaluated by Teleneurology for EEG findings of IIC with physical correlatation concerning for status epilepticus. No clear history of prior seizure but no family present to provide collateral history. She is being treated for sepsis from ecoli UTI and recently taken ofCRRT (yesterday). She started having intermittent R gaze and R arm twitching yesterday. Exam consistent with persistent R gaze deviation, intermittent eye opening, intermittent R arm jerking. There is withdrawal to noxious stim on the L but not so much on the R. Plan: - please load with Keppra 60mg/kg for now, can continue 750mg BID starting tomorrow A - will need transfer to [facility] for cEEG monitoring - agree with low dose propofol for now - recommend MRI Brain w/wo con when stable - consider LP after imaging Pending transfer to [facility] I personally attended this patient and spent a total time of 30 minutes evaluating this patient including clinical assessment, review of chart, medical history imaging, and determining appropriate treatment and workup. HPI Consult Data Date of Consult: 05/04/24 HPI Narrative HPI Narrative: MARI LOPEZ, is a 83 F who presents to [facility] with hypoxia and AMS, subsequently intubated found to have UTI and sepsis and severe JOSE, started on CRRT. She remained persistently confused and started having R gaze and R arm movements concerning for seizure and on EEG with evidence of ictal-interictal continuum which taken together are concerning for status epilepticus. Per nurse she started having R arm movements yesterday and CRRT stopped around 5pm yesterday. 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 Abdominal pain History of back problems Chronic kidney disease DVT (deep venous thrombosis) GERD (gastroesophageal reflux disease) Insomnia Obstructive sleep apnea Essential (primary) hypertension Chronic obstructive airway disease with asthma Incomplete left bundle branch block Home Medications ?Medication ?Instructions ?Recorded ?Last Taken ?Type omeprazole 20 mg capsule,delayed 20 mg PO DAILY reflux 11/13/17 02/24/24 History release glucosamine 500 1 cap PO TID supplement 10/17/19 02/24/24 History gg-cntdaowrq-nchipufh comp 400 mg-D3 667 unit-C-Mn cap hydrocortisone-pramoxine 2.5 %-1 % 1 applic MS BID . 10/17/19 Unknown History (4g) rectal cream cholecalciferol (vitamin D3) 25 50 mcg PO DAILY supplement 07/25/21 Unknown History mcg (1,000 unit) capsule levonorgestrel (Mirena) 1 mcg intrauterine ONCE . 07/25/21 Unknown History vitamin E mixed 400 unit capsule 400 unit PO DAILY supplement 07/25/21 02/24/24 History pyridoxine (vitamin B6) 100 mg 100 mg PO DAILY supplement 12/19/21 Unknown History tablet (Vitamin B-6) acetaminophen 500 mg tablet 1,000 mg PO Q8H pain 06/27/22 Unknown History gabapentin 300 mg capsule 300 mg PO TID nerve pain 06/27/22 02/24/24 History magnesium oxide 200 mg PO DAILY supplement 06/27/22 02/24/24 History multivitamin 1 tab PO DAILY supplement 06/27/22 02/24/24 History nitroglycerin 0.4 mg sublingual 0.4 mg sublingual Q5M PRN chest 06/27/22 Unknown Rx tablet pain #30 tabs lisinopril 10 mg tablet 10 mg PO DAILY blood pressure 06/07/23 Unknown History vibegron 75 mg tablet (Gemtesa) 75 mg PO DAILY overactive bladder 06/07/23 02/24/24 History polyethylene glycol 3350 17 gram 17 g PO DAILY bowel mobility #30 ea 06/09/23 02/24/24 Rx oral powder packet fluorometholone 0.1 % eye 1 drp ophthalmic (eye) BID eyes 02/24/24 02/24/24 History drops,suspension furosemide 20 mg tablet 60 mg PO DAILY water retention 02/24/24 Unknown History zinc acetate 25 mg (zinc) capsule 50 mg PO TID supplement 02/24/24 02/24/24 History ascorbic acid (vitamin C) 500 mg 1,000 mg (2 x 500 mg) PO 03/01/24 Unknown Rx tablet DAILYCM@1200 #60 tabs aspirin 81 mg chewable tablet 81 mg PO BID #38 tabs 03/01/24 Unknown Rx calcium carbonate 500 mg (2.5 x 200 mg calcium (500 03/01/24 Unknown Rx mg)) PO TIDCM #90 tabs cyclobenzaprine 10 mg tablet 10 mg PO TID PRN Muscle Spasm #30 03/01/24 Unknown Rx tabs doxycycline monohydrate 100 mg 100 mg PO BID #10 caps 03/01/24 Unknown Rx capsule ferrous sulfate 325 mg (65 mg 325 mg PO DAILY@1200 #30 tabs 03/01/24 Unknown Rx iron) tablet (FeroSul) hydrocortisone 2.5 % topical 1 applic topical BID PRN PRN 03/01/24 Unknown Rx ointment RASH/TOPICAL IRRITATION #1 tube levothyroxine 125 mcg tablet 125 mcg PO DAILY thyroid #30 tabs 03/01/24 Unknown Rx oxycodone 5 mg tablet 5 mg PO Q4H PRN PRN pain 1-10 7 03/01/24 Unknown Rx days #35 tabs sennosides 8.6 mg-docusate sodium 2 tab PO BID #120 tabs 03/01/24 Unknown Rx 50 mg tablet (Stimulant Laxative Plus) zolpidem 5 mg tablet 5 mg PO QHS #30 tabs 03/01/24 Unknown Rx Allergy/AdvReac Type Severity Reaction Status Date / Time cefazolin (From Kefzol) Allergy Severe hives/difficulty Verified 05/01/24 13:06 swallowing ibuprofen Allergy Unknown Rash Verified 05/01/24 13:06 peanut Allergy Anaphylaxis Verified 05/01/24 13:06 Sulfa (Sulfonamide Allergy Unknown Verified 05/01/24 13:06 Antibiotics) sulfamethoxazole (From Allergy Other Verified 05/01/24 13:06 Bactrim) trimethoprim (From Bactrim) Allergy Other Verified 05/01/24 13:06 Family History Mother Cancer uterine Family History unable to obtain Surgical History History of left heart catheterization (08/01/22) History of dilatation and curettage History of hysteroscopy History of bilateral knee replacement History of herniorrhaphy Status post debridement History of open reduction and internal fixation (ORIF) procedure H/O hemorrhoidectomy History of gastric bypass Social History household members: other details: She has a roomate housing: house number of children: 1 current occupational status: retired pets and animals: Yes pets and animals: dog(s) Smoking Status: Never smoker alcohol intake: never substance use type: does not use caffeine: Yes Type: coffee Number of servings: 3 Vital Signs Vital Signs Vital Signs: 05/03/24 15:00 05/03/24 15:00 05/03/24 15:30 Temperature 97.8 F Temperature Source Core Pulse Rate 70 72 Pulse Strength Respiratory Rate 14 14 Respiratory Effort Normal Non-Labored Mechanically Ventilated Respiratory Depth Normal Respiratory Pattern Normal Blood Pressure 119/72 Blood Pressure Mean 85 Blood Pressure Source Monitor Blood Pressure Position Semi-Fowlers Blood Pressure Location Right Arm Pulse Ox 98 97 Oxygen Delivery Method Mechanical Ventilator Mechanical Ventilator Fraction of Inspired Oxygen (FIO2) 25 05/03/24 15:32 05/03/24 16:00 05/03/24 17:00 Temperature 97.8 F 97.8 F Temperature Source Core Core Pulse Rate 72 72 76 Pulse Strength Respiratory Rate 14 14 Respiratory Effort Respiratory Depth Respiratory Pattern Blood Pressure 125/68 H 119/67 Blood Pressure Mean 86 82 Blood Pressure Source Monitor Monitor Blood Pressure Position Semi-Fowlers Semi-Fowlers Blood Pressure Location Right Arm Right Arm Pulse Ox 95 96 Oxygen Delivery Method Mechanical Ventilator Mechanical Ventilator Fraction of Inspired Oxygen (FIO2) 25 05/03/24 17:26 05/03/24 18:00 05/03/24 19:00 Temperature 97.8 F 98.2 F Temperature Source Core Core Pulse Rate 71 70 76 Pulse Strength Respiratory Rate 14 14 15 Respiratory Effort Respiratory Depth Respiratory Pattern Blood Pressure 113/51 L 125/61 H Blood Pressure Mean 68 78 Blood Pressure Source Monitor Monitor Blood Pressure Position Semi-Fowlers Semi-Fowlers Blood Pressure Location Right Arm Right Arm Pulse Ox 96 96 97 Oxygen Delivery Method Mechanical Ventilator Mechanical Ventilator Fraction of Inspired Oxygen (FIO2) 25 05/03/24 19:20 05/03/24 20:00 05/03/24 20:00 Temperature 98.5 F Temperature Source Core Pulse Rate 71 68 73 Pulse Strength Respiratory Rate 14 14 Respiratory Effort Respiratory Depth Respiratory Pattern Normal Blood Pressure 106/60 Blood Pressure Mean 75 Blood Pressure Source Monitor Blood Pressure Position Semi-Fowlers Blood Pressure Location Right Arm Pulse Ox 96 96 Oxygen Delivery Method Mechanical Ventilator Fraction of Inspired Oxygen (FIO2) 05/03/24 20:30 05/03/24 21:00 05/03/24 21:11 Temperature 98.7 F Temperature Source Core Pulse Rate 78 Pulse Strength Weak (1+) Respiratory Rate 14 Respiratory Effort Normal Non-Labored Mechanically Ventilated Respiratory Depth Normal Respiratory Pattern Normal Blood Pressure 112/48 L Blood Pressure Mean 69 Blood Pressure Source Monitor Blood Pressure Position Semi-Fowlers Blood Pressure Location Right Arm Pulse Ox 95 Oxygen Delivery Method Mechanical Ventilator Mechanical Ventilator Fraction of Inspired Oxygen (FIO2) 05/03/24 22:00 05/03/24 22:15 05/03/24 23:00 Temperature 98.5 F 98.4 F Temperature Source Core Core Pulse Rate 75 72 70 Pulse Strength Respiratory Rate 14 14 14 Respiratory Effort Respiratory Depth Respiratory Pattern Normal Blood Pressure 98/52 L 114/53 L Blood Pressure Mean 67 73 Blood Pressure Source Monitor Monitor Blood Pressure Position Semi-Fowlers Semi-Fowlers Blood Pressure Location Right Arm Right Arm Pulse Ox 96 96 96 Oxygen Delivery Method Mechanical Ventilator Mechanical Ventilator Fraction of Inspired Oxygen (FIO2) 05/03/24 23:00 05/03/24 23:48 05/04/24 00:00 Temperature 98.6 F Temperature Source Core Pulse Rate 71 72 Pulse Strength Respiratory Rate 14 Respiratory Effort Normal Non-Labored Mechanically Ventilated Respiratory Depth Normal Respiratory Pattern Normal Blood Pressure 107/51 L Blood Pressure Mean 69 Blood Pressure Source Monitor Blood Pressure Position Semi-Fowlers Blood Pressure Location Right Arm Pulse Ox 96 Oxygen Delivery Method Mechanical Ventilator Mechanical Ventilator Fraction of Inspired Oxygen (FIO2) 05/04/24 01:00 05/04/24 02:00 05/04/24 02:14 Temperature 98.8 F 98.9 F Temperature Source Core Core Pulse Rate 74 71 71 Pulse Strength Respiratory Rate 14 14 14 Respiratory Effort Respiratory Depth Respiratory Pattern Normal Blood Pressure 110/52 L 113/50 L Blood Pressure Mean 71 71 Blood Pressure Source Monitor Monitor Blood Pressure Position Semi-Fowlers Semi-Fowlers Blood Pressure Location Right Arm Right Arm Pulse Ox 96 95 96 Oxygen Delivery Method Mechanical Ventilator Mechanical Ventilator Fraction of Inspired Oxygen (FIO2) 05/04/24 03:00 05/04/24 03:00 05/04/24 03:46 Temperature 99.0 F Temperature Source Core Pulse Rate 74 78 Pulse Strength Respiratory Rate 14 Respiratory Effort Normal Non-Labored Mechanically Ventilated Respiratory Depth Normal Respiratory Pattern Normal Blood Pressure 128/61 H Blood Pressure Mean 83 Blood Pressure Source Monitor Blood Pressure Position Semi-Fowlers Blood Pressure Location Right Arm Pulse Ox 96 Oxygen Delivery Method Mechanical Ventilator Mechanical Ventilator Fraction of Inspired Oxygen (FIO2) 05/04/24 04:00 05/04/24 05:00 05/04/24 05:26 Temperature 99.0 F 99.0 F Temperature Source Core Core Pulse Rate 82 76 73 Pulse Strength Respiratory Rate 14 14 14 Respiratory Effort Respiratory Depth Respiratory Pattern Normal Blood Pressure 115/55 L 129/69 H Blood Pressure Mean 75 89 Blood Pressure Source Monitor Monitor Blood Pressure Position Semi-Fowlers Semi-Fowlers Blood Pressure Location Right Arm Right Arm Pulse Ox 96 96 96 Oxygen Delivery Method Mechanical Ventilator Mechanical Ventilator Fraction of Inspired Oxygen (FIO2) 05/04/24 06:00 05/04/24 06:54 05/04/24 07:00 Temperature 99.0 F 99.1 F Temperature Source Core Core Pulse Rate 80 78 75 Pulse Strength Respiratory Rate 14 14 14 Respiratory Effort Respiratory Depth Respiratory Pattern Normal Blood Pressure 111/60 110/52 L Blood Pressure Mean 77 71 Blood Pressure Source Monitor Monitor Blood Pressure Position Semi-Fowlers Semi-Fowlers Blood Pressure Location Right Arm Right Arm Pulse Ox 96 96 96 Oxygen Delivery Method Mechanical Ventilator Mechanical Ventilator Fraction of Inspired Oxygen (FIO2) 05/04/24 08:00 05/04/24 08:00 05/04/24 08:00 Temperature 99.1 F Temperature Source Core Pulse Rate 77 74 Pulse Strength Respiratory Rate 14 Respiratory Effort Normal Non-Labored Mechanically Ventilated Respiratory Depth Normal Respiratory Pattern Normal Blood Pressure 108/54 L Blood Pressure Mean 70 Blood Pressure Source Monitor Blood Pressure Position Blood Pressure Location Pulse Ox 96 Oxygen Delivery Method Mechanical Ventilator Mechanical Ventilator Fraction of Inspired Oxygen (FIO2) 05/04/24 09:00 05/04/24 09:15 05/04/24 10:00 Temperature 99.1 F 99.1 F Temperature Source Core Core Pulse Rate 79 75 76 Pulse Strength Respiratory Rate 14 16 14 Respiratory Effort Respiratory Depth Respiratory Pattern Normal Blood Pressure 123/60 H 113/55 L Blood Pressure Mean 77 73 Blood Pressure Source Monitor Monitor Blood Pressure Position Blood Pressure Location Pulse Ox 96 96 94 Oxygen Delivery Method Mechanical Ventilator Mechanical Ventilator Fraction of Inspired Oxygen (FIO2) 05/04/24 11:00 05/04/24 11:29 05/04/24 11:30 Temperature 99.1 F 99.2 F H Temperature Source Core Core Pulse Rate 93 81 Pulse Strength Respiratory Rate 14 15 Respiratory Effort Normal Non-Labored Mechanically Ventilated Respiratory Depth Normal Respiratory Pattern Normal Blood Pressure 94/47 L 108/55 L 84/46 L Blood Pressure Mean 61 72 58 Blood Pressure Source Monitor Monitor Monitor Blood Pressure Position Supine Semi-Fowlers Blood Pressure Location Right Arm Pulse Ox 96 95 Oxygen Delivery Method Mechanical Ventilator Mechanical Ventilator Fraction of Inspired Oxygen (FIO2) 05/04/24 11:45 05/04/24 11:54 05/04/24 12:00 Temperature Temperature Source Pulse Rate 79 74 Pulse Strength Respiratory Rate 14 Respiratory Effort Respiratory Depth Respiratory Pattern Normal Blood Pressure 107/53 L Blood Pressure Mean 71 Blood Pressure Source Monitor Blood Pressure Position Semi-Fowlers Blood Pressure Location Right Arm Pulse Ox 96 Oxygen Delivery Method Fraction of Inspired Oxygen (FIO2) 05/04/24 12:00 05/04/24 12:00 05/04/24 12:15 Temperature 99.2 F H Temperature Source Core Pulse Rate 77 Pulse Strength Respiratory Rate 13 Respiratory Effort Normal Non-Labored Mechanically Ventilated Respiratory Depth Normal Respiratory Pattern Normal Blood Pressure 105/56 L 109/56 L Blood Pressure Mean 72 73 Blood Pressure Source Monitor Monitor Blood Pressure Position Semi-Fowlers Semi-Fowlers Blood Pressure Location Right Arm Right Arm Pulse Ox 97 Oxygen Delivery Method Mechanical Ventilator Mechanical Ventilator Fraction of Inspired Oxygen (FIO2) 05/04/24 12:30 05/04/24 13:00 05/04/24 13:23 Temperature 99.3 F H 99.2 F H Temperature Source Core Core Pulse Rate 78 92 Pulse Strength Respiratory Rate 15 14 Respiratory Effort Respiratory Depth Respiratory Pattern Blood Pressure 104/58 L 117/58 L 108/55 L Blood Pressure Mean 73 77 72 Blood Pressure Source Monitor Monitor Monitor Blood Pressure Position Semi-Fowlers Semi-Fowlers Semi-Fowlers Blood Pressure Location Right Arm Right Arm Pulse Ox 97 94 Oxygen Delivery Method Mechanical Ventilator Mechanical Ventilator Fraction of Inspired Oxygen (FIO2) 25 05/04/24 13:30 05/04/24 13:30 05/04/24 14:00 Temperature 99.2 F H 99.2 F H Temperature Source Core Core Pulse Rate 79 85 Pulse Strength Respiratory Rate 16 14 Respiratory Effort Normal Non-Labored Mechanically Ventilated Normal Non-Labored Mechanically Ventilated Respiratory Depth Normal Normal Respiratory Pattern Normal Normal Blood Pressure 117/58 L 108/55 L 118/53 L Blood Pressure Mean 77 72 74 Blood Pressure Source Monitor Monitor Monitor Blood Pressure Position Semi-Fowlers Semi-Fowlers Semi-Fowlers Blood Pressure Location Pulse Ox 96 96 Oxygen Delivery Method Mechanical Ventilator Mechanical Ventilator Fraction of Inspired Oxygen (FIO2) 25 05/04/24 14:50 Temperature 99.2 F H Temperature Source Core Pulse Rate 78 Pulse Strength Respiratory Rate 15 Respiratory Effort Normal Non-Labored Mechanically Ventilated Respiratory Depth Normal Respiratory Pattern Normal Blood Pressure 110/58 L Blood Pressure Mean 75 Blood Pressure Source Monitor Blood Pressure Position Semi-Fowlers Blood Pressure Location Pulse Ox 97 Oxygen Delivery Method Mechanical Ventilator Fraction of Inspired Oxygen (FIO2) 25 Weight Weight: 115 kg Body Mass Index (BMI) 49.8 EEG Results Procedure Details EEG Procedure Details: MARI LOPEZ is a 83 year old F with a past medical history of , who presents for evaluation of Electroencephalogram on DATE at TIME Physical Exam Narrative Pupils difficult to assess Does not attend to voice, intermittnelty opens eyes to noxious stim but does not follow commands intubated R gaze deviation, unable to overcome with head movement. Intermittent resolution to midline Intermittent r arm stereotyped jerking to midline L arm withdraws to noxiuos stim and localizes The b/l LE do not move to noxious stim Increased tone on the L compared to the R in upper extremities Lab / Micro Data 05/04/24 15:30 05/04/24 03:43 Labs: Laboratory Results - last 24 hr 05/03/24 17:00: Sodium 139, Potassium 4.0, Chloride 106, Carbon Dioxide 24.0, B UN 40 H, Creatinine 2.35 H, Estim Creat Clear Calc 21.74, Est GFR (MDRD) Af Amer 26 L, Est GFR (MDRD) Non-Af 21 L, BUN/Creatinine Ratio 17.0, Glucose 105, C alcium 7.9 L, Phosphorus 2.4 L, Albumin 1.8 L 05/03/24 21:42: Random Vancomycin 20.8 H 05/04/24 03:43: WBC 13.9 H, RBC 1.95 L, Hgb 6.3 L, Hct 18.8 L, MCV 96.4, MCH 32.3 H, MCHC 33.5, RDW Std Deviation 57.5 H, RDW Coeff of Parris 16.3 H, Plt Count 99 L, MPV 11.6, Immature Gran % (Auto) 4.700 H, Neut % (Auto) 70.9 H, Lymph % (Auto) 14.6 L, J[place] % (Auto) 8.2, Eos % (Auto) 1.3, Baso % (Auto) 0.3, Absolute Neuts (auto) 9.8 H, Absolute Lymphs (auto) 2.03, Nucleated RBC % 1.7, Platelet Estimate SLT DEC, Target Cells 1+, Stomatocytes 1+, Sodium 139, Potassium 3.9, Chloride 106, Carbon Dioxide 23.0, Anion Gap 9, BUN 45 H, Creatinine 2.88 H, Estim Creat Clear Calc 17.75, Est GFR (MDRD) Af Amer 20 L, Est GFR (MDRD) Non-Af 17 L, BUN/Creatinine Ratio 15.6, Glucose 104, Calcium 7.5 L, Random Vancomycin 20.6 H 05/04/24 04:55: Blood Type AB POSITIVE, Antibody Screen NEGATIVE, Crossmatch See Detail 05/04/24 10:38: Hgb 6.4 L, Hct 19.7 L, Ammonia 20.0, TSH 15.400 H 05/04/24 11:38: Random Vancomycin 17.9 H Micro: Microbiology 05/01/24 15:53 Sputum, Induced/Lukens Gram Stain - Final 05/01/24 15:53 Sputum, Induced/Lukens Respiratory Culture - Final Mixed normal respiratory gisela. No Streptococcus pneumoniae, beta-hemolytic Streptococcus or Staphylococcus aureus isolated. 05/01/24 14:40 Urine Catheter - Catheter Urine Culture - Final Escherichia coli 05/01/24 12:49 Blood Culture (Wb) - Left Forearm Blood Culture - Preliminary No growth in 48 hours. ABG Data ABG results: ABG 05/04/24 08:28 Specimen Type ART Sample Site L Radial pH 7.54 H Bicarbonate Actual 22.8 Total CO2 24 Base Excess 0 O2 Saturation 97 O2 % 25.0 ABG pCO2 26.4 L ABG pO2 78 Alfredo Test Positive Respiration Rate 14 O2 Delivery Device Adult Vent Vent Mode AC/PC POC PEEP 5 Peak Inspir Pressure 20 Active Medications Active Medications Active Medications: Current Medications Generic Name Dose Route Start Last Admin Trade Name Freq PRN Reason Stop Dose Admin Albuterol Sulfate 2.5 mg 05/01/24 17:06 Albuterol 2.5 Mg/3 Ml Vial.Neb. INHALATION Q2H PRN PRN SOB &/OR WHEEZING CRRT Dialysis Solution 9 bag 05/02/24 09:15 05/03/24 14:46 Pureflow B Solution 4k 5,000 Ml Bag PF 2 bag UD PRN Administration CRRT Protocol Chlorhexidine Gluconate 1 each 05/02/24 10:00 05/04/24 02:56 Chlorhexidine Gluc 2% Cloth 1 Each Towelette TOPICAL 1 each DAILY VALERIO Administration Chlorhexidine Gluconate 15 ml 05/01/24 22:00 05/04/24 09:42 Chlorhexidine 15 Ml PO 15 ml BID VALERIO Administration Heparin Sodium (Porcine) 0 units 05/02/24 09:15 05/03/24 17:42 Heparin 10,000 Units/10 Ml Vial IV 2,800 units X1 PRN Administration Emergency Dialysis Catheter DC Heparin Sodium (Porcine) 0 unit 05/02/24 19:40 Heparin Injection (Vial) 5,000 Unit/Ml Vial IV UD PRN dose adjustment Protocol Heparin Sodium (Porcine) 1,000 - 3,000 units 05/04/24 11:29 05/04/24 14:44 Heparin 10,000 Units/10 Ml Vial IV 05/04/24 23:29 1,300 units X1 PRN Administration HD catheter closing Fentanyl 100 mls @ 2.5 mls/hr 05/01/24 13:35 05/04/24 09:00 CONT INF Infused UD VALERIO Titration Protocol 25 MCG/HR Vancomycin IV-PHARMACY TO DOSE 500 mls @ 250 mls/hr 05/01/24 17:06 1 each/ Sodium Chloride IV X1 PRN Rx to Dose Protocol Pantoprazole Sodium 40 mg/ 110 mls @ 330 mls/hr 05/02/24 10:00 05/04/24 10:06 Sodium Chloride IV Infused Q24 VALERIO Infusion Propofol 1,000 mg in 100 mls @ 6.408 mls/hr 05/01/24 19:00 05/04/24 14:55 Diprivan CONT INF 10 mcg/kg/min .Q12H VALERIO 6.4 mls/hr Administration Protocol 10 MCG/KG/MIN Sodium Chloride 100 mls @ 15 mls/hr 05/01/24 21:24 IV .Q6H40M PRN Saline Flush Sodium Chloride 100 mls @ 15 mls/hr 05/01/24 21:24 IV .Q6H40M PRN Additional IVPB Infusion Amiodarone HCl 360 mg/ 200 mls @ 16.667 mls/hr 05/02/24 03:00 05/04/24 02:56 Dextrose CONT INF 0.5 mg/min .Q12H VALERIO 16.7 mls/hr Administration 0.5 MG/MIN Magnesium Sulfate 4 gm in 100 mls @ 25 mls/hr 05/02/24 09:15 IV X1 PRN Magnesium level < 1.6mg/dl Sodium Phosphate 30 mmol/ 260 mls @ 62.5 mls/hr 05/02/24 09:15 Sodium Chloride IV X1 PRN Phosphorus Level <2.5 Potassium Chloride 40 meq/ 270 mls @ 135 mls/hr 05/02/24 09:15 05/03/24 01:11 Sodium Chloride IV Infused X1 PRN Infusion K+ <3.5 mEq/L Levofloxacin 500 mg in 100 mls @ 100 mls/hr 05/02/24 10:00 05/04/24 11:25 Levaquin Iv IV Infused Q24 VALERIO Infusion Enteral Nutritional Formula 1,000 mls @ 50 mls/hr 05/03/24 10:10 05/04/24 10:53 Vital Af 1.2 Samson Liquid GT 50 mls/hr .Q20H VALERIO Infusion Norepinephrine Bitartrate 8 mg 250 mls @ 9.375 mls/hr 05/04/24 11:20 05/04/24 13:30 / Sodium Chloride CONT INF 5 mcg/min .[id number] VALERIO 9.4 mls/hr Titration Protocol 5 MCG/MIN Vancomycin HCl 500 mg in 100 mls @ 100 mls/hr 05/04/24 16:00 IV 05/04/24 16:59 X1 ONE Levothyroxine Sodium 125 mcg 05/02/24 06:00 05/04/24 04:57 Levothyroxine 125 Mcg Tablet PO 125 mcg DAILY@0600 VALERIO Administration Melatonin 3 mg 05/01/24 17:06 Melatonin 3 Mg Tablet PO QHS PRN PRN INSOMNIA Ondansetron HCl 4 mg 05/01/24 17:06 Ondansetron 4 Mg/2 Ml Vial IV Q8H PRN PRN NAUSEA/VOMITING Sodium Chloride 10 - 40 ml 05/01/24 21:24 05/04/24 14:44 0.9% Saline Lock 10 Ml Syringe IV 40 ml UD PRN Administration SALINE FLUSH Sodium Chloride 20 ml 05/02/24 09:15 0.9% Saline Lock 10 Ml Syringe IV UD PRN Emergency Dialysis Catheter DC Sodium Chloride 50 - 100 ml 05/02/24 09:15 0.9% Normal Saline 1,000 Ml Iv.Soln. IV UD PRN CRRT System Flush Sodium Chloride 1,000 ml 05/04/24 11:30 05/04/24 14:45 0.9% Normal Saline 1,000 Ml Iv.Soln. OPERA.SITE 05/04/24 23:29 1,000 ml X1 VALERIO Administration Sodium Chloride 200 ml 05/04/24 11:29 0.9% Normal Saline 1,000 Ml Iv.Soln. IV 05/04/24 23:29 X1 PRN to maintain SBP >90mmHg during Dialysis Vancomycin Protocol 1 lab 05/05/24 04:00 Vancomycin Trough/Random Due MC 05/05/24 08:00 DAILY VALERIO
--- NOTE | 2024-05-04 15:09 | CHAPLAIN ---
Type of Pastoral Visit ___ Initial Visit ___ Follow-up Visit ___ On-call Visit ___ General Patient Visit ___ Spiritual Assessment ___ Family Conference ___ Bereavement ___ Rapid Response ___ Code Blue ___ Other (describe below) Pastoral Care Referral From ___ Patient ___ Family ___ Nurse ___ Physician ___ Food Safety Director ___ Carpenter Mate ___ Other (describe below) Sacrament/Intervention ___ Active listening ___ Anointing ___ Amish ___ Bereavement ___ Communion ___ Jade exploration ___ ___ Life review ___ Prayer ___ Reconciliation ___ Sacrament of Sick ___ Supportive presence ___ Wedding ___ Other (describe below) Pastoral Comments the patient remains on the vent; a friend was at her side and was tearful as she talked to the patient; gave time to stand next to friend and hear her speak of the loved one and her concern for her; offered to pray and friend agreed; stood at the head of the bed and spoke to the patient who opened her eyes just a bit; offered prayer of hope and comfort; friend also saw that patient had opened her eyes to hear the prayer; 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
[2024-05-04] MEDS: Vancomycin IV 500 MG/100 ML BAG 100 MG IV (15:33)
[2024-05-04 15:39] LABS: Hematocrit 23.2 % (37-47); Hemoglobin 7.6 g/dL (12.0-15.0); POSITIVE COUNT YES
--- NOTE | 2024-05-04 18:52 | PCM.DC.SUM ---
Providers Date of Admission: 05/01/24 Date of Discharge: 05/04/24 Primary Care Physician: BROOKLYN Aguillon Consultations 05/01/24 17:06 Consult: Senior Process Engineer / Pulmonary Medicine Routine Consulting Provider: Intensivists/Pulmonary Med Reason for Consult: shock suspect septic, intubated and on levo EMERGENT Consult: No Notified: Yes Date Notified: 05/01/24 Time Notified: 14:53 Method of Notification: Answering Service Consult: Nephrology Routine Consulting Provider: Qian Albrecht Reason for Consult: renal failure EMERGENT Consult: No Notified: Yes Date Notified: 05/01/24 Time Notified: 14:56 Method of Notification: Answering Service Reason For Visit: AMS, HYPOTENSION Diagnosis Discharge Diagnosis (1) Shock: Status: Acute Code(s): R57.9 - Shock, unspecified Plan Patient is an 83-year-old lady who was admitted with altered mental status. Patient was found to be in acute respiratory failure resulting in patient being intubated in the ED. An assessment of septic shock as well as acute kidney injury with severe metabolic acidosis made admitted to the intensive care unit for further management 1. t septic shock -Patient presented with respiratory failure, renal failure, hypotension and had elevated white blood cell count with left shift . Patient given 30 cc/kg bolus in the ED and required right IJ placement and Levophed administration, patient was started on broad-spectrum antibiotic therapy with vancomycin and Levaquin 01/02: Patient has been weaned off vasopressor support but was put back in afternoon. On antimicrobial agent. Status epilepticus: Neurologist Dr. Gonzalez said patient has status epilepticus with intermittent right gaze, right arm twitching and general with persistent right gaze deviation intermittent opening. EEG shows continuous 1-2 generalized periodic discharges with sharply contoured morphology return criteria for ictal interictal continuum. This possibly waiting criteria for status epilepticus. Patient was loaded with Keppra. Therefore in the afternoon after Dr. Hart notified me, I called multiple [facility] but they do not have bed for emergent transfer therefore patient was transferred to [facility] ICU. Later on ambulance recommended for air/helicopter transfer because of emergency. Patient was transferred. #2. Acute cystitis due to E. coli ? Patient presented with septic shock management as discussed above 3. Acute hypoxic respiratory failure ? Patient was reported to be saturating 65% on room air was placed on 15 L nonrebreather by the squad without much improvement eventually intubated in the ED admitted to the intensive care unit initial vent settings written by admitting physician and subsequent management deferred to automotive starter repairer 4. Acute kidney injury ? Superimposed on chronic kidney disease stage IIIb with severe metabolic acidosis as well as hyperkalemia. Patient was treated with bicarb consultation placed to nephrology with plans for patient to undergo CRRT ? 04/25/2024;Patient had temporary dialysis catheter placed with initiation of CRRT 05/04: Remains oliguric. CRRT changed to hemodialysis today. Being followed by booking supervisor. Mixed anion gap and non-anion gap metabolic acidosis. Hyperkalemia resolved. Overall appears edematous with net positive fluid balance since admission 5. Anemia ? Secondary to chronic disorder monitoring H&H and transfuse if patient becomes symptomatic or hemoglobin falls below 7 05/04 hemoglobin 6.4. transfuse a unit during hemodialysis 6. Chronic congestive heart failure with preserved ejection fraction ? Patient is on furosemide held on admission given her presentation 7. Essential hypertension ? Patient presented with septic shock antihypertensives held 8. Hypothyroidism ? Patient is on levothyroxine home dose continued 9. GERD ? Patient is a PPI 10. Class III obesity with BMI of 49.8 ? Complicating care plan is to certified rehabilitation counselor patient on weight loss following her extubation 11. DVT prophylaxis ? Subcu heparin Transfer to ICU. Medications at Discharge Home Medications omeprazole 20 mg capsule,delayed release 20 mg PO DAILY reflux 11/13/17 glucosamine 500 pf-jbgatmgir-lphppdpi comp 400 mg-D3 667 unit-C-Mn cap 1 cap PO TID supplement 10/17/19 hydrocortisone-pramoxine 2.5 %-1 % (4g) rectal cream 1 applic OR BID . 10/17/19 cholecalciferol (vitamin D3) 25 mcg (1,000 unit) capsule 50 mcg PO DAILY supplement 07/25/21 levonorgestrel (Mirena) 1 mcg intrauterine ONCE . 07/25/21 vitamin E mixed 400 unit capsule 400 unit PO DAILY supplement 07/25/21 pyridoxine (vitamin B6) 100 mg tablet (Vitamin B-6) 100 mg PO DAILY supplement 12/19/21 acetaminophen 500 mg tablet 1,000 mg PO Q8H pain 06/27/22 gabapentin 300 mg capsule 300 mg PO TID nerve pain 06/27/22 magnesium oxide 200 mg PO DAILY supplement 06/27/22 multivitamin 1 tab PO DAILY supplement 06/27/22 nitroglycerin 0.4 mg sublingual tablet 0.4 mg sublingual Q5M PRN chest pain #30 tabs 06/27/22 lisinopril 10 mg tablet 10 mg PO DAILY blood pressure 06/07/23 vibegron 75 mg tablet (Gemtesa) 75 mg PO DAILY overactive bladder 06/07/23 polyethylene glycol 3350 17 gram oral powder packet 17 g PO DAILY bowel mobility #30 ea 06/09/23 fluorometholone 0.1 % eye drops,suspension 1 drp ophthalmic (eye) BID eyes 02/24/24 furosemide 20 mg tablet 60 mg PO DAILY water retention 02/24/24 zinc acetate 25 mg (zinc) capsule 50 mg PO TID supplement 02/24/24 ascorbic acid (vitamin C) 500 mg tablet 1,000 mg (2 x 500 mg) PO DAILYCM@1200 #60 tabs 03/01/24 aspirin 81 mg chewable tablet 81 mg PO BID #38 tabs 03/01/24 calcium carbonate 500 mg (2.5 x 200 mg calcium (500 mg)) PO TIDCM #90 tabs 03/01/24 cyclobenzaprine 10 mg tablet 10 mg PO TID PRN Muscle Spasm #30 tabs 03/01/24 doxycycline monohydrate 100 mg capsule 100 mg PO BID #10 caps 03/01/24 ferrous sulfate 325 mg (65 mg iron) tablet (FeroSul) 325 mg PO DAILY@1200 #30 tabs 03/01/24 hydrocortisone 2.5 % topical ointment 1 applic topical BID PRN PRN RASH/TOPICAL IRRITATION #1 tube 03/01/24 levothyroxine 125 mcg tablet 125 mcg PO DAILY thyroid #30 tabs 03/01/24 oxycodone 5 mg tablet 5 mg PO Q4H PRN PRN pain 1-10 7 days #35 tabs 03/01/24 sennosides 8.6 mg-docusate sodium 50 mg tablet (Stimulant Laxative Plus) 2 tab PO BID #120 tabs 03/01/24 zolpidem 5 mg tablet 5 mg PO QHS #30 tabs 03/01/24 Physical Exam Narrative Please see exam finding on the same day of discharge Weight / BMI Weight Weight: 253 lb 8.505 oz Body Mass Index (BMI) 49.8 ABG / Lab / Microbiology Data 05/04/24 15:30 05/04/24 03:43 Laboratory: Laboratory Results - last 24 hr 05/03/24 03:35: Diff Path Review Reviewed 05/04/24 04:55: Blood Type AB POSITIVE, Antibody Screen NEGATIVE, Crossmatch See Detail 05/04/24 10:38: Hgb 6.4 L, Hct 19.7 L, Ammonia 20.0, TSH 15.400 H 05/04/24 11:38: Random Vancomycin 17.9 H 05/04/24 15:30: Hgb 7.6 L, Hct 23.2 L Microbiology: Microbiology 05/01/24 15:53 Sputum, Induced/Lukens Gram Stain - Final 05/01/24 15:53 Sputum, Induced/Lukens Respiratory Culture - Final Mixed normal respiratory gisela. No Streptococcus pneumoniae, beta-hemolytic Streptococcus or Staphylococcus aureus isolated. 05/01/24 14:40 Urine Catheter - Catheter Urine Culture - Final Escherichia coli 05/01/24 12:49 Blood Culture (Wb) - Left Forearm Blood Culture - Preliminary No growth in 48 hours. 05/01/24 15:30 Stool Clostridioides difficile (PCR) - Final 05/01/24 16:20 Mucosa - Nasopharyngeal Respiratory Panel (PCR) - Final 05/01/24 14:40 Urine Catheter - Ahuja Legionella Antigen - Final 05/01/24 14:40 Urine Catheter - Ahuja Streptococcus pneumoniae Antigen (M - Final 05/01/24 13:10 Mucosa - Nose SARS-CoV-2, Influenza & RSV (PCR) - Final ABG: ABG 05/04/24 08:28 Specimen Type ART Sample Site L Radial pH 7.54 H Bicarbonate Actual 22.8 Total CO2 24 Base Excess 0 O2 Saturation 97 O2 % 25.0 ABG pCO2 26.4 L ABG pO2 78 Alfredo Test Positive Respiration Rate 14 O2 Delivery Device Adult Vent Vent Mode AC/PC POC PEEP 5 Peak Inspir Pressure 20 D/C Instructions DC O2, CPAP, BIPAP Needs PSN CPAP & BiPAP: BiPAP & CPAP Settings per PSN Fraction of Inspired Oxygen ( 05/04/24 19:00 FIO2) Home O2 Discharge instructions: No DC home with Oxygen: No Meaningful Use Info Meaningful Use Meaningful Use Diagnoses (Choose all that apply): None applicable Ischemic Stroke Statin Dosing Therapy Reference: STATIN DOSE THERAPY REFERENCE: * Patients > 75 years receive moderate or high dose statin therapy. * Patients 75 years or YOUNGER should receive HIGH intensity statin dose unless contraindicated. You will be required to document reason for non-treatment if statin daily dose does not meet guidelines. HIGH DOSE STATIN THERAPY DAILY Atorvastatin > than or = to 40 mg Rosuvastatin > than or = to 20 mg Amlodipine + Atorvastatin > than or = to 2.5/40 mg Ezetimibe + Simvastatin 10/80 mg Simvastatin 80mg Discharge Plan Admission Admit Date/Time: 05/01/24 14:38 Attending Provider: Adithya Harrell Primary Care Provider: Miryam Wells Consulting Providers: Qian Albrecht; Devon Koenig; Sunday Carlos; Dre White; Edgar Davies; Ralph Rudd; Kristopher Sykes; Johnathan Hess; Korin Quinones; Ayad Bruno; Kin Young; Anthony Anderson; Ping Villalobos; Kristen Lockwood; Froilan Castellanos; Mani Farah; Heladio Proctor; Mekhi Red; Angela Pinto; Ben Garces; Bandar Hernandez; Ky Bowers; Hussain John; Bernarda Becerril; Ralph Haynes; Gerardo Rogers; Naina Bello; Shelby Johnston; Mulugeta Barker; Gonzales Ying; Jae Cohen; TAYA SCOTT; Adriana Germain; Abi Yates; Nicho Mcmillan; Minal Garcia Discharge Orders/Prescriptions Prescriptions: No Action dgmz-ammgqn-eaoxzaxp-D3-C-Mn 500-400-667 mg-mg-unit capsule 1 cap PO TID hydrocortisone-pramoxine 2.5-1 % (4g) cream 1 applic RC BID cholecalciferol (vitamin D3) 25 mcg (1,000 unit) capsule 50 mcg PO DAILY vitamin E mixed 400 unit capsule 400 unit PO DAILY Mirena 20 mcg/24 hours (7 yrs) 52 mg intrauterine device 1 mcg intrauterine ONCE pyridoxine (vitamin B6) [Vitamin B-6] 100 mg tablet 100 mg PO DAILY acetaminophen 500 mg tablet 1,000 mg PO Q8H multivitamin Tablet 1 tab PO DAILY gabapentin 300 mg capsule 300 mg PO TID Patient Comments: TAKE ONE PILL BY MOUTH 3 TIMES PER DAY magnesium oxide 200 mg magnesium tablet 200 mg PO DAILY nitroglycerin 0.4 mg tablet, sublingual 0.4 mg sublingual Q5M PRN (Reason: chest pain) Qty: 30 1RF Rx Instructions: do not exceed 3 doses per episode omeprazole 20 MG capsule 20 mg PO DAILY zinc acetate 25 mg (zinc) capsule 50 mg PO TID fluorometholone 0.1 % drops,suspension 1 drp ophthalmic (eye) BID furosemide 20 mg tablet 60 mg PO DAILY ascorbic acid (vitamin C) 500 mg Tablet 1,000 mg PO DAILYCM@1200 Qty: 60 0RF Rx Instructions: Take this with the iron supplement at lunch daily aspirin 81 mg Tablet,Chewable 81 mg PO BID Qty: 38 0RF Rx Instructions: Take 1 twice a day with food until gone.....for prevention of blood clots. calcium carbonate 200 mg calcium (500 mg) Tablet,Chewable 500 mg PO TIDCM Qty: 90 0RF doxycycline monohydrate 100 mg Capsule 100 mg PO BID Qty: 10 0RF ferrous sulfate [FeroSul] 325 mg (65 mg iron) Tablet 325 mg PO DAILY@1200 Qty: 30 0RF Rx Instructions: Take this with vitamin C at Lunch every day hydrocortisone 2.5 % Ointment 1 applic topical BID PRN PRN (Reason: RASH/TOPICAL IRRITATION) Qty: 1 0RF Protocol: *Topical Application Instructions APPLICATION INSTRUCTIONS: apply to areas of itching oxycodone 5 mg Tablet 5 mg PO Q4H PRN PRN (Reason: pain 1-10) 7 Days Qty: 35 0RF sennosides-docusate sodium [Stimulant Laxative Plus] 8.6-50 mg Tablet 2 tab PO BID Qty: 120 0RF zolpidem 5 mg Tablet 5 mg PO QHS Qty: 30 0RF cyclobenzaprine 10 mg tablet 10 mg PO TID PRN (Reason: Muscle Spasm) Qty: 30 0RF levothyroxine 125 mcg tablet 125 mcg PO DAILY Qty: 30 0RF Patient Comments: TAKE 1 TABLET BY MOUTH ONCE DAILY. TAKE ON EMPTY STOMACH. FOR THYROID. Rx Instructions: Take 1 tab daily except on Tuesdays take only 1/2 tab. Take on empty stomach Gemtesa 75 mg tablet 75 mg PO DAILY Patient Comments: TAKE 1 TABLET BY MOUTH EVERY DAY lisinopril 10 mg tablet 10 mg PO DAILY polyethylene glycol 3350 17 gram Powder In Packet 17 g PO DAILY Qty: 30 0RF Referrals / Follow Up: Miryam Wells DIETARY SERVICES DIRECTOR-C [Primary Care Provider] - Disposition Disposition (needs filled in before D/C Order can be placed): Acute Care Hospital Charges/Coding Visit Charges Inpatient E&M: 94717 Disch Hosp >30min
[2024-05-06 10:00] LABS: Pathologist Review Reviewed
== END 2024-05-04 19:45 | disposition short-term general hospital (02) | DRG 871 ==
LOC: ED 14:34 → ICU 15:10
PROVIDERS: Family Medicine; Internal Medicine; Internal Medicine Critical Care Medicine; Internal Medicine Nephrology; Admitting Provider Internal Medicine; Emergency Provider Emergency Medicine; PCP Nurse Practitioner Family; Referring Provider Internal Medicine; Visit Provider Internal Medicine
DX: A41.9 Sepsis, unspecified organism (principal); J96.01 Acute respiratory failure with hypoxia; N17.0 Acute kidney failure with tubular necrosis; R65.21 Severe sepsis with septic shock; G93.40 Encephalopathy, unspecified; E87.21 Acute metabolic acidosis; I13.0 Hypertensive heart and chronic kidney disease with heart failure and stage 1 through stage 4 chronic kidney disease, or unspecified chronic kidney disease; Z68.42 Body mass index [BMI] 45.0-49.9, adult; J44.0 Chronic obstructive pulmonary disease with (acute) lower respiratory infection; I50.32 Chronic diastolic (congestive) heart failure; I47.10 Supraventricular tachycardia, unspecified; N30.00 Acute cystitis without hematuria; G40.901 Epilepsy, unspecified, not intractable, with status epilepticus; N18.32 Chronic kidney disease, stage 3b; D63.1 Anemia in chronic kidney disease; E03.9 Hypothyroidism, unspecified; E87.5 Hyperkalemia; G47.33 Obstructive sleep apnea (adult) (pediatric); K21.9 Gastro-esophageal reflux disease without esophagitis; D53.9 Nutritional anemia, unspecified; E66.01 Morbid (severe) obesity due to excess calories; E66.813 Obesity, class 3; M81.0 Age-related osteoporosis without current pathological fracture; Z79.82 Long term (current) use of aspirin; R82.71 Bacteriuria; Z86.16 Personal history of COVID-19; Z79.890 Hormone replacement therapy; B96.20 Unspecified Escherichia coli [E. coli] as the cause of diseases classified elsewhere; G47.00 Insomnia, unspecified
CPT/HCPCS: 31500; 31720; 36600; 70450; 71045; 76770; 80048; 80053; 80069; 80202; 81001; 82140; 82550; 82803; 83605; 83735; 84100; 84443; 84478; 85014; 85018; 85025; 85610; 85730; 86850; 86900; 86901; 87040; 87070; 87077; 87086; 87088; 87186; 87205; 87449; 87493; 87506; 87631; 87633; 90937; 90947; 93005; 94002; 94003; 95819; 97110; 97802; 97803; 99252; 99285; P9016; A4216; C1752; G0257; G0463

== ENCOUNTER 2024-05-18 19:11 | Inpatient (IN) | payer MEDICARE, OTHER, SELFPAY ==
[2024-05-18 19:02] VITALS: BP 133/54; PULSE 65; RESP 18; TEMP 37.2; O2SAT 97; BMI 45.7
--- NOTE | 2024-05-18 19:10 | NURSING ---
Verbal order per Dr. Mehta to change admission Zolpidem order from 10mg to 5mg.
[2024-05-18] MEDS: Lacosamide 100 MG Tablet PO (21:03)
[2024-05-18] MEDS: Senna/Docusate Sodium 1 Tablet 2 TABLET PO (21:04)
[2024-05-18] MEDS: Atorvastatin Calcium 40 MG Tablet PO (21:04)
[2024-05-18] MEDS: APIXABAN 5 MG TABLET PO (21:04)
[2024-05-18] MEDS: Zolpidem Tartrate 5 MG Tablet PO (21:06)
[2024-05-19] MEDS: Acetaminophen 500 MG Tablet PO (01:57)
[2024-05-19] MEDS: Levothyroxine 125 MCG Tablet PO (05:08)
[2024-05-19 05:13] VITALS: BP 110/46; PULSE 70; RESP 16; TEMP 36.9; O2SAT 94
[2024-05-19 05:51] LABS: Hematocrit 23.4 % (37-47); Mean Corp Hgb Conc 29.9 g/dL (32-36); Mean Corpuscular Hgb 30.7 pg (27.0-32.0); Mean Corpuscular Volume 102.6 fL (81-99); Mean Platelet Vol. 12.6 fl (6.2-12.0); Platelet Count 441 K/mm3 (150-450); RBC Distribution Width CV 17.2 % (11.6-14.6); RBC Distribution Width SD 64.2 fl (35.1-43.9); Red Blood Count 2.28 M/mm3 (4.2-5.4); White Blood Count 6.3 K/mm3 (4.4-11.0)
[2024-05-19 06:20] LABS: Anion Gap 6 (5-15); BUN 55 mg/dL (7-18); BUN/Creat Ratio 32.5 RATIO (10-20); Calcium,Total 7.9 mg/dL (8.5-10.1); Chloride 112 mmol/L (98-107); Creatinine, Serum 1.69 mg/dL (0.55-1.02); EST Glomerular Filtration Rate 31 mL/min (>60); Est Glom Filt Rate - Afr Amer 37 mL/min (>60); Glucose 89 mg/dL (74-106); Magnesium 2.1 mg/dL (1.6-2.6); Potassium 4.2 mmol/L (3.5-5.1); Sodium Level 145 mmol/L (136-145)
[2024-05-19 06:21] LABS: Phosphorus 3.9 mg/dL (2.5-4.9)
[2024-05-19] MEDS: Pantoprazole Sodium 20 MG Tablet PO (08:09)
[2024-05-19] MEDS: Furosemide 40 MG Tablet PO (08:09)
[2024-05-19] MEDS: Senna/Docusate Sodium 1 Tablet 2 TABLET PO ×2 (08:09→22:37)
[2024-05-19] MEDS: APIXABAN 5 MG TABLET PO ×2 (08:09→22:37)
[2024-05-19] MEDS: Carvedilol 6.25 MG Tablet PO ×2 (08:09→17:34)
[2024-05-19] MEDS: Cholecalciferol (VIT D3) 25 MCG TABLET (1,000 UNITS) PO (08:09)
[2024-05-19] MEDS: Lacosamide 100 MG Tablet PO ×2 (08:11→22:36)
[2024-05-19 08:14] VITALS: O2SAT 94
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
[2024-05-19] MEDS: oxyCODONE 5 MG Tablet PO (09:49)
--- NOTE | 2024-05-19 12:50 | RAD_ITS ---
PROCEDURE: THORACIC SPINE 3 VIEWS REASON FOR EXAM: Midthoracic level pain. TECHNIQUE: 3 views of the thoracic spine. COMPARISON: None FINDINGS: Normal thoracic vertebral heights. Bone mineralization appears diffusely diminished. Mild multilevel disc space narrowing and endplate osteophytosis. Normal alignment. Paraspinal soft tissues are unremarkable. RAD/Thoracic Spine 3 Views IMPRESSION: NO EVIDENCE OF ACUTE THORACIC FRACTURE. Multilevel disc space narrowing and spondylosis. Reading Location: [facility]
[2024-05-19] MEDS: Ferrous Sulfate 325 MG Tablet PO (13:00)
--- NOTE | 2024-05-19 16:14 | PCM.RU.PYE ---
Admission Information Primary Diagnosis:: Debility secondary to septic shock with acute hypoxic respiratory failure requiring intubation Status Changes from Prescreening?: No changes Identified Actual Problem List:: Infection, Skin Intergrity, Pain, ALteration in Cmfrt, Cognitve Impr/Memory Loss, Depression, Bladder Incontinence, Alteration in Sleep, Mobility Impaired, Self Care Deficit and Alteration-Leisure Activ. Potential Problem List:: DVT, Bleeding, Infection, UTI, Aspiration, Falls, Skin Integrity and Depression Risk of Complications DVT: EVANS Luise and - (Apixaban 5 mg p.o. twice daily) Bleeding: Monitor Lab Values, Nursing to Teach Precautions for anti-coagulation therapy., Wound, if applicable, to be assessed every shift. and Stroke patients assessed for lethargy or change in status. Infection: Clinical Staff to Monitor for S/S of infection: and S/S of infection include fever, redness, warmth, etc. Urinary Tract Infection: Monitor for frequency, burning, discomfort, or incontinence. and Nursing will obtain urine sample for urinalysis and C&S when ordered. Aspiration: Clinical staff will monitor for coughing, drooling, congestion., Speech will evaluate swallowing and dsyphasia. and Nursing will monitor patient swallowing during meals. Falls: Patient will be evaluated for Fall Precautions and Patient will be placed on Fall Precautions as indicated per protocol. Skin Breakdown: Nursing will assess skin daily using assessment tool. and Nursing will place on Skin Breakdown Precautions as indicated. Pain: Clinical staff will assess patient's pain level per protocol., Medications will be given, if needed, and the pain level reassessed. and Other methods: Massage, distraction, decrease stimulus, etc. used PRN. Plan of Care Patient requires physician specializing in physical medicine and rehab oversight to provide close medical supervision of rehab issues including: Pain Management, Sleep Problems, Bowel and Bladder, Medical and co-morbidity Management, DVT prophylaxis, Rehabilitation Leadership and Coordination of treatment team Patient needs Physical Therapy: For a minimum of 1 hour and At least 5 out of 7 days Patient needs Physical Therapy to improve:: Mobility, Strengthening, Transfers, Stretching, ROM, Endurance, Stairs, Gait and Balance Patient needs Occupational Therapy: For a minimum of 1 hour and At least 5 out of 7 days Patient needs Occupational Therapy to improve ADL's incl.: Eating, Grooming, Bathing, Dressing, Toileting, Toilet transfers, Community Reintegration, Higher functioning activities, Household tasks, Adaptive Equipment, Splinting and Other activities as determined Patient requires speech therapy: For a minimum of 1 hour and At least 5 out of 7 days Patient requires speech therapy for: Swallowing, Cognition, Language Skills and Compensatory Strategies Patient requires 24/ Rehabilitation Nursing for: Pain Issues, Identifying and preventing risk factors, Monitoring and reporting current medical conditions, Assisting with ambulation, transfer, and all ADL's, Teaching patients about disease process and medications, Family teaching, Providing safe environment, Bowel and Bladder Issues, Skin integrity and Medication Management Patient needs Distribution Center Manager/ Case Management for: Discharge Planning, Arranging Home Equipment or Services and Family Interventions Patient needs Dietary and Nutrition Services for: Adequate Nutrition, Nutritional Supplements and Nutritional Education Goals Goals Patient will remain: free from falls Patient will perform eating at: MOD I level of assist. Patient will perform bed mobility at: MOD I level of assist. Patient will complete transfers from bed to chair at: - (Standby assist) Patient will ambulate: - (165 feet with least restrictive device at standby assist on various surfaces) Patient will complete upper body dressing at: - (Minimal assistance) Patient will complete lower body dressing at: - (Minimal assistance with adaptive equipment as needed) Patient will complete toilet transfer at: - (Min assist) Patient will complete toileting at: - (Min assist) Patient will perform bathing at: - (She will complete upper body bathing at minimal assistance and lower body bathing at minimal assistance with adaptive equipment as needed.) Patient will perform Tub/Shower transfer at: - (Minimal assistance with DME as needed) Patient will complete grooming at: - (Minimal assistance while standing at the same) Patient will achieve: - (A send/descend 2 steps with 1 handrail and least restrictive device at standby assist) Patient will have pain level of: of 3 or less Patient's skin will: remain intact Patient will receive: adequate nutrition. Discharge Planning Pt Prognosis for Sig. Practical Improv. w/in Reasonable Time: Good Estimated Length of stay (days): 28 Anticipated D/C Destination: Home w/ family or friends Was Preadmission Assessment Accurate?: Yes
[2024-05-19 16:39] LABS: AST(SGOT) 19 U/L (15-37); Alanine Aminotransfer ALT/SGPT 24 U/L (13-56); Albumin, Serum 2.2 g/dL (3.2-5.0); Alkaline Phosphatase 78 U/L (45-117); Bilirubin, Direct 0.16 mg/dL (0.00-0.30); Globulin 3.7 g/dL (2.2-4.2); Iron 47 ug/dL (50-170); Iron Binding Capacity,Total 236 ug/dL (250-450); Magnesium 2.2 mg/dL (1.6-2.6); PERCENT IRON SATURATION 19.9 % (15.0-55.0); Phosphorus 3.6 mg/dL (2.5-4.9); Protein, Total 5.9 g/dL (6.4-8.2)
[2024-05-19 16:42] LABS: Erythrocyte Sedimentation Rate 32 mm/hr (0-30)
[2024-05-19 18:00] VITALS: BP 139/59; PULSE 70; RESP 18; TEMP 36.6; O2SAT 98
[2024-05-19] MEDS: Zolpidem Tartrate 5 MG Tablet PO (22:36)
[2024-05-19] MEDS: Atorvastatin Calcium 40 MG Tablet PO (22:36)
[2024-05-20] VITALS (7 sets, daily range): BP systolic 104–149; BP diastolic 41–53; PULSE 60–70; RESP 16–18; TEMP 36.4–37.2; O2SAT 93–97
[2024-05-20] MEDS: oxyCODONE 5 MG Tablet PO ×3 (02:50→22:24)
[2024-05-20] MEDS: Levothyroxine 125 MCG Tablet PO (05:26)
[2024-05-20] MEDS: Furosemide 40 MG Tablet PO (07:53)
[2024-05-20] MEDS: Pantoprazole Sodium 20 MG Tablet PO (07:53)
[2024-05-20] MEDS: Cholecalciferol (VIT D3) 25 MCG TABLET (1,000 UNITS) PO (07:54)
[2024-05-20] MEDS: Lacosamide 100 MG Tablet PO ×2 (07:58→20:26)
[2024-05-20] MEDS: APIXABAN 5 MG TABLET PO ×2 (07:58→20:26)
[2024-05-20] MEDS: Carvedilol 6.25 MG Tablet PO ×2 (09:21→17:42)
--- NOTE | 2024-05-20 11:27 | PCM.PROGNOTE ---
Subjective Subjective AF VSS - lightheaded when sitting up with legs dependent. Poor food and fluid intake Maintaining appropriate O2 sat on RA. Denies SOB at rest, + SOB with exertion, no CP, no N/V/Abd pain. She feels constipated/bloated. No calf pain. Did not sleep well again last night. she tells me that the pain in her back is better today. She did not cry out today when they got her to the edge of the bed and into the WC. Stool is heme +. MAG and phos are WNL. iron is low but, % iron saturation is good at 19.9. LFT's are normal. CRP is 80.5. ESR is 32. ALB is 2.2 HLAB27 is pending. Objective Data Objective Data Vital Signs: Vital Signs Temp Pulse Resp BP Pulse Ox O2 Del Method 97.5 F L 70 16 114/53 L 93 Room Air 05/20/24 05:04 05/20/24 05:04 05/20/24 05:04 05/20/24 05:04 05/20/24 07:25 05/20/24 07:25 Oxygen Delivery Method Room Air Weight: 226 lb 9.599 oz Body Mass Index (BMI) 45.7 Intake & Output: Intake and Output for Last 24 Hours 05/18/24 05/19/24 05/20/24 23:59 23:59 23:59 Intake Total 120 / 120 380 / 380 220 / 220 Balance 120 / 120 380 / 380 220 / 220 Lab / Micro Data 05/20/24 12:09 05/20/24 12:09 Labs: Laboratory Results - last 24 hr 05/19/24 16:02: ESR 32 H, Phosphorus 3.6, Magnesium 2.2, Iron 47 L, TIBC 236 L, Iron Saturation 19.9, Total Bilirubin 0.40, Direct Bilirubin 0.16, AST 19, ALT 24, Alkaline Phosphatase 78, C-React Prot Ext Range 80.50 H, Total Protein 5.9 L, Albumin 2.2 L, Globulin 3.7 Micro: Microbiology 05/20/24 00:20 Stool Stool Occult Blood (ALEC) - Final Occult Blood Positive Radiography Diagnostic Testing: Radiology Impression Thoracic Spine X-Ray 05/19/24 12:50 IMPRESSION: NO EVIDENCE OF ACUTE THORACIC FRACTURE. Multilevel disc space narrowing and spondylosis. Reading Location: [place] [id number] Physical Exam Const alert Constitutional Narrative: more alert today. Appropriate but, at times is perseverating on things and she is not herself......many of us on rehab know her well and she is not usually a complainer......this comes and goes. HEENT HEENT Narrative: Denies soreness in her mouth or painful swallowing MM are dry Mouth: dry mucous membranes Resp clear to auscultation bilaterally Resp Narrative: Lying flat in bed with no SOB. Not tachypneic. No conversational dyspnea. Effort and Inspection: able to speak in complete sentences Cardio regular rate, regular rhythm, no rub and no gallops Cardio Narrative: very soft systolic MM at the second RICS with no radiation GI normal to inspection, nondistended, normoactive bowel sounds and soft to palpation GI Narrative: no guarding with palpation. BS's are not hyperactive. Extremity no calf tenderness Extremity Narrative: small amount of edema of the ankles only General Extremity: edema bilateral lower extremity (at the ankles only) Details: trace Skin General Skin Exam: dry skin Rashes: no rashes Psych Psych Narrative: makes good eye contact with me most of the time. Seems to have an exaggerated response to any kind of pain. Some perseveration. Not her usual self at times. Complaining and tried to refuse therapy this afternoon. this is not like her. May be related to the fact that she has not slept in past 4 night or so. Assessment & Plan Assessment/Plan (1) Debility: PLAN: Due to septic shock, acute on chronic RF requiring dialysis, acute respiratory failure with hypoxemia requiring intubation, status epilepticus, prolonged hospitalization. (2) Dysphagia: QUALIFIERS: Dysphagia type: oropharyngeal phase Qualified Code(s): R13.12 - Dysphagia, oropharyngeal phase (3) Generalized weakness: (4) Acute on chronic anemia: PLAN: HGB 7 at admission to rehab. (5) Septic shock: PLAN: Due to pyelonephritis from E. Coli (6) Pyelonephritis due to Escherichia coli: (7) Acute renal failure superimposed on stage 3b chronic kidney disease: QUALIFIERS: Acute renal failure type: unspecified Qualified Code(s): N17.9 - Acute kidney failure, unspecified; N18.32 - Chronic kidney disease, stage 3b (8) Acute respiratory failure with hypoxemia: PLAN: Required intubation (9) Status epilepticus: PLAN: On Vimpat at presentation to rehab (10) Acute hyperkalemia: PLAN: resolved with dialysis (11) Metabolic acidosis: PLAN: Resolved with CUSHION MAKER (12) Chronic kidney disease: QUALIFIERS: Chronic kidney disease stage: stage 3 (moderate) Chronic kidney disease stage 3 subtype: stage 3b (GFR 30-44) Qualified Code(s): N18.32 - Chronic kidney disease, stage 3b (13) Heme + stool: (14) Acute on chronic back pain: (15) Spinal osteophytosis: PLAN: Plain x-ray of the thoracic spine shows multilevel disc disease and multilevel endplate osteophytes. (16) Osteopenia: QUALIFIERS: Osteopenia location: multiple sites Qualified Code(s): M85.89 - Other specified disorders of bone density and structure, multiple sites (17) Encephalopathy: QUALIFIERS: Encephalopathy type: unspecified encephalopathy Qualified Code(s): G93.40 - Encephalopathy, unspecified PLAN: Likely multifactorial...metabolic, lack of sleep, new medications, had anoxia at presentation to the ED and was intubated, newly diagnosed seizure disorder, etc. PLAN: Plan 1. Continue therapy 2. Transfuse with 1 unit of RBC's for symptomatic anemia 3. Start IV fluids and run at 75 cc/hr for 2 liters for increase in CREAT from 1.69-1.89 overnight. Continue to encourage increased fluid intake. 4. Recheck lab on Thursday 5. Continue oxycodone as needed and 5 mg scheduled at 0700. 6. Start Remeron for decreased appetite and insomnia..........confused at night and restless.......consider adding 1 mg of risperdal at night if this continues. Hold the Eliazar olsen. Charges/Coding Visit Charges Inpatient E&M: 91346 Subs Hosp L2
[2024-05-20] MEDS: Magnesium Hydroxide 30 ML UDC 45 ML PO (12:30)
[2024-05-20] MEDS: Ferrous Sulfate 325 MG Tablet PO (12:32)
[2024-05-20 12:52] LABS: Hemoglobin 7.4 g/dL (12.0-15.0)
[2024-05-20 13:12] LABS: Anion Gap 4 (5-15); BUN 48 mg/dL (7-18); BUN/Creat Ratio 25.4 RATIO (10-20); Calcium,Total 8.5 mg/dL (8.5-10.1); Chloride 111 mmol/L (98-107); Creatinine, Serum 1.89 mg/dL (0.55-1.02); EST Glomerular Filtration Rate 27 mL/min (>60); Est Glom Filt Rate - Afr Amer 33 mL/min (>60); Estimated Creatinine Clearance 25.21 ml/min; Glucose 95 mg/dL (74-106); Potassium 4.6 mmol/L (3.5-5.1); Sodium Level 144 mmol/L (136-145)
[2024-05-20] MEDS: Lactated Ringers 1,000 ML 75 ML IV (20:08)
[2024-05-20] MEDS: 0.9% Saline Lock 10 ML Syringe IV (20:08)
[2024-05-20] MEDS: Mirtazapine 15 MG Tablet PO (20:26)
[2024-05-20] MEDS: Atorvastatin Calcium 40 MG Tablet PO (20:26)
[2024-05-20] MEDS: Senna/Docusate Sodium 1 Tablet 2 TABLET PO (20:26)
[2024-05-21 06:00] VITALS: BP 112/45; PULSE 67; RESP 18; TEMP 36.9; O2SAT 94
[2024-05-21] MEDS: Levothyroxine 125 MCG Tablet PO (06:58)
[2024-05-21] MEDS: oxyCODONE 5 MG Tablet PO ×2 (06:58→20:02)
[2024-05-21] MEDS: 0.9% Saline Lock 10 ML Syringe IV (07:02)
[2024-05-21 08:07] VITALS: BP 137/50; PULSE 74
[2024-05-21] MEDS: APIXABAN 5 MG TABLET PO ×2 (08:07→20:10)
[2024-05-21] MEDS: Carvedilol 6.25 MG Tablet PO ×2 (08:07→17:03)
[2024-05-21] MEDS: Cholecalciferol (VIT D3) 25 MCG TABLET (1,000 UNITS) PO (08:07)
[2024-05-21] MEDS: Pantoprazole Sodium 40 MG Tablet PO (08:07)
[2024-05-21] MEDS: Furosemide 40 MG Tablet PO (08:07)
[2024-05-21] MEDS: Lacosamide 100 MG Tablet PO ×2 (08:14→20:10)
[2024-05-21] MEDS: Senna/Docusate Sodium 1 Tablet 2 TABLET PO ×2 (08:16→20:09)
[2024-05-21] MEDS: Ferrous Sulfate 325 MG Tablet PO (11:54)
[2024-05-21] MEDS: Lactated Ringers 1,000 ML 75 ML IV (11:56)
[2024-05-21 17:53] VITALS: BP 152/47; PULSE 67; RESP 18; TEMP 36.8; O2SAT 98
[2024-05-21] MEDS: Acetaminophen 500 MG Tablet PO (20:02)
[2024-05-21] MEDS: Mirtazapine 15 MG Tablet PO (20:09)
[2024-05-21] MEDS: Atorvastatin Calcium 40 MG Tablet PO (20:09)
[2024-05-22] MEDS: 0.9% Saline Lock 10 ML Syringe IV ×2 (01:30→21:28)
[2024-05-22] MEDS: Levothyroxine 125 MCG Tablet PO (05:18)
[2024-05-22 05:21] VITALS: BP 141/59; PULSE 63; RESP 17; TEMP 37.2; O2SAT 96
[2024-05-22 06:36] LABS: Hematocrit 27.1 % (37-47); Hemoglobin 8.1 g/dL (12.0-15.0); Mean Corp Hgb Conc 29.9 g/dL (32-36); Mean Corpuscular Hgb 30.6 pg (27.0-32.0); Mean Corpuscular Volume 102.3 fL (81-99); Mean Platelet Vol. 12.2 fl (6.2-12.0); Platelet Count 392 K/mm3 (150-450); RBC Distribution Width CV 17.3 % (11.6-14.6); RBC Distribution Width SD 64.2 fl (35.1-43.9); Red Blood Count 2.65 M/mm3 (4.2-5.4); White Blood Count 5.7 K/mm3 (4.4-11.0)
[2024-05-22] MEDS: oxyCODONE 5 MG Tablet PO ×2 (06:48→18:07)
[2024-05-22 07:02] LABS: Anion Gap 4 (5-15); BUN 42 mg/dL (7-18); BUN/Creat Ratio 22.8 RATIO (10-20); Calcium,Total 8.2 mg/dL (8.5-10.1); Chloride 111 mmol/L (98-107); Creatinine, Serum 1.84 mg/dL (0.55-1.02); EST Glomerular Filtration Rate 28 mL/min (>60); Est Glom Filt Rate - Afr Amer 34 mL/min (>60); Glucose 87 mg/dL (74-106); Potassium 4.2 mmol/L (3.5-5.1); Sodium Level 142 mmol/L (136-145)
[2024-05-22] MEDS: APIXABAN 5 MG TABLET PO ×2 (08:29→21:28)
[2024-05-22] MEDS: Carvedilol 6.25 MG Tablet PO ×2 (08:29→17:01)
[2024-05-22] MEDS: Furosemide 40 MG Tablet PO (08:29)
[2024-05-22] MEDS: Cholecalciferol (VIT D3) 25 MCG TABLET (1,000 UNITS) PO (08:29)
[2024-05-22] MEDS: Pantoprazole Sodium 40 MG Tablet PO (08:29)
[2024-05-22] MEDS: Senna/Docusate Sodium 1 Tablet 2 TABLET PO ×2 (08:29→21:28)
[2024-05-22] MEDS: Lacosamide 100 MG Tablet PO ×2 (08:31→21:28)
[2024-05-22] MEDS: Ferrous Sulfate 325 MG Tablet PO (12:28)
[2024-05-22 17:32] VITALS: BP 142/63; PULSE 63; RESP 20; TEMP 36.6; O2SAT 95
[2024-05-22] MEDS: Acetaminophen 500 MG Tablet PO (18:06)
[2024-05-22] MEDS: Magnesium Hydroxide 30 ML UDC PO (18:11)
[2024-05-22] MEDS: Atorvastatin Calcium 40 MG Tablet PO (21:28)
[2024-05-22] MEDS: Mirtazapine 15 MG Tablet PO (21:28)
[2024-05-23 05:57] VITALS: BP 111/47; PULSE 65; RESP 17; TEMP 36.6; O2SAT 94
[2024-05-23] MEDS: Levothyroxine 125 MCG Tablet PO (05:58)
[2024-05-23] MEDS: oxyCODONE 5 MG Tablet PO ×2 (05:59→15:33)
--- NOTE | 2024-05-23 08:27 | PN_ITS ---
Subjective Subjective Ting was seen on team rounds today. NO family was available to participate. Afebrile VSS - Maintaining appropriate oxygen saturation on RA Oral intake - FOOD appetite is starting to creep up. She ate 50 to 74% of her supper last night and 50 to 74% of breakfast this morning. She ate 100% of her breakfast yesterday. FLUIDS improved. She had 1560 orally yesterday. Discussed with nursing -has slept much better the past 2 nights. Still incontinent of urine and feces. Reviewed the THERAPY notes Medication list reviewed. All lab from yesterday was personally reviewed. Hemoglobin is up to 8.1 following transfusion of 1 unit of packed red blood cells. Platelets are normal and the white blood cell count is normal as well. Sodium is 142 and the potassium is 4.2. BUN is 42 with a creatinine of 1.84. GFR is 34 which is consistent with stage IIIb chronic renal failure which is her baseline. Calcium corrected for anemia is within normal limits. Tells me she feels more alert and her voice is stronger. Coughed up a small amount of blood tinged sputum. Denies CP, palpitations, N/V, lightheadedness, abd pain, dysuria and calf pain. Not c/o back pain today to me but, has been c/o pain to the therapists.......seems to pass in seconds. Only taking the one scheduled Oxycodone in the AM prior to therapy. Tolerating Remeron with no adverse side effects and she is sleeping well at night. No sundowning reported over the weekend. Objective Data Objective Data Vital Signs: Vital Signs Temp Pulse Resp BP Pulse Ox O2 Del Method 97.8 F 65 17 111/47 L 94 Room Air 05/23/24 05:57 05/23/24 05:57 05/23/24 05:57 05/23/24 05:57 05/23/24 05:57 05/23/24 05:57 Oxygen Delivery Method Room Air Weight: 226 lb 9.599 oz Body Mass Index (BMI) 45.7 Intake & Output: Intake and Output for Last 24 Hours 05/21/24 05/22/24 05/23/24 23:59 23:59 23:59 Intake Total 1820 / 1820 2560 / 2560 120 / 120 Balance 1820 / 1820 2560 / 2560 120 / 120 Lab / Micro Data 05/22/24 06:31 05/22/24 06:31 Micro: Microbiology 05/20/24 00:20 Stool Stool Occult Blood (ALEC) - Final Occult Blood Positive Physical Exam Const alert, oriented x3 and no apparent distress Constitutional Narrative: Sitting in the recliner at the bedside. Arouse easily. General Appearance: cooperative HEENT Mouth: dry mucous membranes Resp clear to auscultation bilaterally Resp Narrative: Diminished in the bases, suspect due to body habitus. No conversational dyspnea. Not tachypneic. Cardio regular rate and regular rhythm Cardio Narrative: no ectopy. No gallop GI normal to inspection, nondistended, normoactive bowel sounds, soft to palpation and non-tender GI Narrative: Constipated........getting a laxative today. Extremity no calf tenderness Extremity Narrative: mild pitting edema of just the ankles Some puffiness of the hands. Bruising on the arms is resolving. Skin Rashes: no rashes Neuro Neuro Narrative: Poor awareness of her degreee of generalized weakness and over estimates what she can do. Psych cooperative Psych Narrative: Does not seem anxious or depressed. Making good eye contact. Hard time focusing. Thought Content: No suicidality, No homicidality and No hallucination(s) Assessment & Plan Assessment/Plan (1) Debility: (2) Dysphagia: QUALIFIERS: Dysphagia type: oropharyngeal phase Qualified Code(s): R13.12 - Dysphagia, oropharyngeal phase (3) Generalized weakness: (4) Acute on chronic anemia: (5) Septic shock: (6) Pyelonephritis due to Escherichia coli: (7) Acute renal failure superimposed on stage 3b chronic kidney disease: QUALIFIERS: Acute renal failure type: unspecified Qualified Code(s): N17.9 - Acute kidney failure, unspecified; N18.32 - Chronic kidney disease, stage 3b (8) Acute respiratory failure with hypoxemia: (9) Status epilepticus: (10) Acute hyperkalemia: (11) Metabolic acidosis: (12) Chronic kidney disease: QUALIFIERS: Chronic kidney disease stage: stage 3 (moderate) C hronic kidney disease stage 3 subtype: stage 3b (GFR 30-44) Qualified Code(s): N18.32 - Chronic kidney disease, stage 3b (13) Heme + stool: (14) Acute on chronic back pain: (15) Spinal osteophytosis: (16) Osteopenia: QUALIFIERS: Osteopenia location: multiple sites Qualified Code(s): M85.89 - Other specified disorders of bone density and structure, multiple sites (17) Encephalopathy: QUALIFIERS: Encephalopathy type: unspecified encephalopathy Q ualified Code(s): G93.40 - Encephalopathy, unspecified PLAN: Plan 1. Continue therapy 2. COG eval tomorrow with ST. Pt admits to altered thought processes since being hospitalized. Staff has noticed a change from her baseline. Trouble focusing and with memory. She was intubated at [facility] to the ER. Unknown how long she had been hypoxic prior to being brought to the ED. Anoxic encephalopathy? 3. Continue to encourage increased fluid intake. 4. Recheck lab in a few days. Charges/Coding Visit Charges Inpatient E&M: 88890 Subs Hosp L2
[2024-05-23 08:36] VITALS: BP 116/55; PULSE 60
[2024-05-23] MEDS: Senna/Docusate Sodium 1 Tablet 2 TABLET PO (08:38)
[2024-05-23] MEDS: Furosemide 40 MG Tablet PO (08:38)
[2024-05-23] MEDS: Cholecalciferol (VIT D3) 25 MCG TABLET (1,000 UNITS) PO (08:38)
[2024-05-23] MEDS: Carvedilol 6.25 MG Tablet PO ×2 (08:38→16:47)
[2024-05-23] MEDS: Pantoprazole Sodium 40 MG Tablet PO (08:38)
[2024-05-23] MEDS: APIXABAN 5 MG TABLET PO ×2 (08:39→20:17)
[2024-05-23] MEDS: Lacosamide 100 MG Tablet PO ×2 (08:40→20:16)
[2024-05-23] MEDS: Polyethylene Glycol 3350 17 GM PACKET PO (08:44)
--- NOTE | 2024-05-23 10:06 | SP.MBSS_ITS ---
Modified Barium Swallow Patient Information Study Date: 05/23/24 Study Time: 09:00 Direct Billable Minutes: 120 Total Minutes procedure & reportin Diagnosis: Oropharyngeal Dysphagia Referring Physician: Ting Mehta Reason for Referral: Objective assessment of swallow function necessary prior to diet advancement. Prior instrumental assessments: * 05/13/2024 FEES - moderate oropharyngeal dysphagia with laryngeal edema negatively impacting airway protection in the setting of status epilepticus and intubation. At this time, difficulty managing secretions at baseline. Solids were not tested d/t pt. safety concerns. Pharyngeal phase characterized by reduced hyolaryngeal excursion, absent epiglottis inversion, but complete glottic inversion. Aspiration of pooled secretions, thin liquids and mildly thick liquids. Adequate sensory response. * 05/17/2024 MBSS - mild to moderate oropharyngeal dysphagia. Oral deficits characterized by adequate mastication, but disorganized oral transit with purees and solids. Generalized oral weakness likely d/t prolonged intubation. Premature spillage vs. pharyngeal residues vs. retrograde flow from prior consistencies. Bolus sitting within the pyriforms in additional to decreased epiglottic inversion, decreased laryngeal elevation, reduced laryngeal closure. Penetration of mildly and moderately thick liquids. Aspiration of thin liquids. Consistently throat clearing - adequate sensation. Difficult to assess d/t pt.'s body habitus. Collection of residue at the level of pyriforms. Medical History: Ting Vega is an 83-year-old female with a history of stage I diastolic dysfunction, GERD, hypertension, hypothyroidism, TADEO presented to [facility] ED 05/01/2024 with altered mental status and was hypotensive. Patient was found to be in acute respiratory failure resulting in patient being intubated in the ED.? An assessment of septic shock as well as acute kidney injury with severe metabolic acidosis made admitted to the intensive care unit for further management. Patient was transferred to [facility] on 05/04/2024 for f urther neurological medical management. The patient was noted to have a possible seizure and spot EEG was obtained w/ findings concerning for possible epilepticus. Extubated on 05/08/2024 with subsequent laryngeal edema. Admitted to [facility] on 05/18/2024 for rehabilitation. Dx of oropharyngeal dysphagia s/p extubation and laryngeal edema- currently on modified diet of puree textures / mildly thick liquids. Current Diet Ordered: Soft & Bite SIized/Mildlt Thick Liquids Dentition: WNL Respiratory Status: Oxygenating on Room Air Penetration-Aspiration Scale Penetration-Aspiration Scale: OBJECTIVE ASSESSMENT OF SWALLOW FUNCTION (QUANTITATIVE ? PER TRIAL): PENETRATION / ASPIRATION SCALE (JOSEPH): 1 = does not enter airway 2 = enters airway/above vocal folds/ejected 3 = enters airway/above vocal folds/not ejected 4 = enters airway/contacts vocal folds/ejected 5 = enters airway/contacts vocal folds/not ejected 6 = enters airway/below vocal folds/ejected 7 = enters airway/below vocal folds/not ejected despite effort 8 = enters airway/below vocal folds/no effort Penetration-Aspiration Scale Score Thin Liquid via teaspoon: Result: 3= enters airways/above vocal folds/not ejected Thin Liquid via teaspoon Trial 2: Result: 2= enter airway/above vocal folds/ejected (trace undercoatung of the epiglottis ) Thin Liquid via small single sip: cup: Result: 1= does not enter airway Thin Liquid via sequential sips: cup: Result: 1= does not enter airway Thin Liquid via single sip: straw: Result: 1= does not enter airway Pudding: Result: 1= does not enter airway Cookie: Result: 1= does not enter airway Thin Liquid via small single sip: cup Trial 2: Result: 2= enter airway/above vocal folds/ejected Thin Liquid via small single sip: cup Chin tuck: Result: 1= does not enter airway Thin Liquid via small single sip: cup Chin tuck Trial 2: Result: 1= does not enter airway [place] Thick Liquid via small single sip: cup: Result: 1= does not enter airway Oral Phase Bolus Preparation/Mastication: Slow prolonged chewing/mashing with complete recollection Bolus Transport/Lingual Motion: Repetitive/disorganized tongue motion Oral Residue: Trace residue lining oral structures Pharyngeal Phase Initiation of Pharyngeal Swallow: Bolus head at posterior laryngeal surgace of epiglottis Soft Palate Elevation: No bolus between soft palate and pharyngeal wall Laryngeal Elevation: Partial superior movement thyroid cart/partial apprx aryt- epig petiole Anterior Hyoid Excursion: Partial anterior movement Epiglottic Movement: Complete inversion Laryngeal Vestibule Closure at Height of Swallow: Incomplete; narrow column of air/contrast in laryngeal vestibule Pharyngeal Stripping Wave: Present - complete Pharyngoesophageal Segment Opening: Parital distension and partial duration; parital obstruction of flow Tongue Base Retraction: Narrow column of contrast between tongue base & post. pharyngeal wall Pharyngeal Residue: Collection of residue within or on pharyngeal structures Esophageal Phase Esophageal Clearance: Esophageal retention Treatment Strategies Effects of treatment strategies attemped:: Chin tuck = effective to eliminate laryngeal vestibule penetration Double swallow = partially effective to clear pharyngeal residue L head turn while swallowing = partially effective to clear pharyngeal residue Diagnosis/Impression Diagnosis: Mild Oropharyngeal Dysphagia Impression: The Oral phase is marked by... * mildly prolonged mastication with complete recollection was observed * mildly discoordinated lingual motion affecting [id number] bolus transportation . The pharyngeal phase is marked by... * spillage to the posterior laryngeal surface of the epiglottis with penetration during the swallow * intermittent laryngeal vestibule penetration * reduced tongue base retraction * small sips were effective in reducing the frequency of penetration, while a chin tuck posture successfully eliminated it. * retention of residue in the left pyriform sinus, accompanied by reduced tongue base retraction and partial pharyngoesophageal segment (PES) distention and duration, were contributing to contrast retention in the left pyriform sinus * a left head turn was partially effective in clearing residual material. The esophageal phase is marked by... * esophageal retention w/out retrograde flow Recommendations Diet: Soft and Bite Sized Textures and Thin Liquids Compensatory Strategies: Small Bites, Small Sips, Chin Tuck (if coughing w/ small sips of thin w/ head upright, use a chin tuck posture w/ thin liquids), Left head turn when swallowing (complete dry swallow w/ L head turn intermittently 3-5 swallows to clear L phjaryngeal residue), Sitting upright and Remain sitting upright for 30 minutes after PO intake Supervision: 1:1 Direct Supervision Recommend Repeat Modified Barium Swallow: TBD Need for Skilled Speech Therapy Services: Yes Comment: ST to target compensatory strategy use and instruct w/ oropharyngeal strengthening exercises to improve swallow function and reduce penetration/aspiration risk. Education Completed: 1. Described result of evaluation. Status Active ST Patient: Active Contact Information [facility] Speech Therapy:: Roxie Guerrero M.A., SUBSEA ENGINEER [address] [place] [address] [email or web address] [phone]. [phone]
[2024-05-23] MEDS: Ferrous Sulfate 325 MG Tablet PO (12:14)
--- NOTE | 2024-05-23 12:46 | CASEMGMT ---
Social Work IDT met with patient for Team meeting. Pt denied involving a support person. IDT discussed patient's progress in PT/OT/ST/SN. Educated to Medicare approval of 23 days with DC 06/10. Pt is currently using a paulo lift and standing at the parallel bars. ST working on cognition and swallowing. Pt will likely need a SNF at DC, but will reteam weekly to discuss progress and determine DC recommendations. SW will continue to follow for DC planning. Yahaira Lincoln INVENTORY CONTROLLER MECHANICAL APPLICATIONS ENGINEER
[2024-05-23] MEDS: Bisacodyl 10 MG Suppository RC (15:29)
[2024-05-23 18:00] VITALS: BP 146/63; PULSE 66; RESP 20; TEMP 36.7; O2SAT 97
[2024-05-23] MEDS: 0.9% Saline Lock 10 ML Syringe IV (19:01)
[2024-05-23] MEDS: Mirtazapine 15 MG Tablet PO (20:16)
[2024-05-23] MEDS: Atorvastatin Calcium 40 MG Tablet PO (20:17)
[2024-05-24] MEDS: Levothyroxine 125 MCG Tablet PO (04:38)
[2024-05-24 06:00] VITALS: BP 117/63; PULSE 69; RESP 18; TEMP 36.9; O2SAT 99
[2024-05-24] MEDS: oxyCODONE 5 MG Tablet PO ×2 (06:37→20:20)
[2024-05-24] MEDS: Carvedilol 6.25 MG Tablet PO ×2 (06:37→16:37)
[2024-05-24] MEDS: 0.9% Saline Lock 10 ML Syringe IV (06:38)
[2024-05-24] MEDS: Pantoprazole Sodium 40 MG Tablet PO (07:49)
[2024-05-24] MEDS: Furosemide 40 MG Tablet PO (07:49)
[2024-05-24] MEDS: APIXABAN 5 MG TABLET PO ×2 (07:49→19:57)
[2024-05-24] MEDS: Cholecalciferol (VIT D3) 25 MCG TABLET (1,000 UNITS) PO (07:49)
[2024-05-24] MEDS: Lacosamide 100 MG Tablet PO ×2 (07:51→19:56)
[2024-05-24] MEDS: Ferrous Sulfate 325 MG Tablet PO (12:03)
[2024-05-24 17:23] VITALS: BP 101/65; PULSE 70; RESP 19; TEMP 36.6; O2SAT 98
[2024-05-24] MEDS: Atorvastatin Calcium 40 MG Tablet PO (19:56)
[2024-05-24] MEDS: Mirtazapine 15 MG Tablet PO (19:57)
[2024-05-24 20:19] VITALS: BP 116/50; PULSE 61
[2024-05-25 05:36] VITALS: BP 121/52; PULSE 64; RESP 16; TEMP 36.6; O2SAT 94
[2024-05-25] MEDS: oxyCODONE 5 MG Tablet PO ×2 (06:15→20:04)
[2024-05-25] MEDS: Levothyroxine 125 MCG Tablet PO (06:15)
[2024-05-25] MEDS: Lacosamide 100 MG Tablet PO ×2 (09:00→20:06)
[2024-05-25] MEDS: APIXABAN 5 MG TABLET PO ×2 (09:00→20:05)
[2024-05-25] MEDS: Pantoprazole Sodium 40 MG Tablet PO (09:01)
[2024-05-25] MEDS: Furosemide 40 MG Tablet PO (09:01)
[2024-05-25] MEDS: Cholecalciferol (VIT D3) 25 MCG TABLET (1,000 UNITS) PO (09:01)
[2024-05-25] MEDS: Carvedilol 6.25 MG Tablet PO ×2 (09:01→17:04)
[2024-05-25] MEDS: Ferrous Sulfate 325 MG Tablet PO (11:27)
[2024-05-25 17:07] LABS: HLA B27 Negative (.)
[2024-05-25 17:50] VITALS: BP 117/51; PULSE 61; RESP 15; TEMP 36.6; O2SAT 96
[2024-05-25] MEDS: Atorvastatin Calcium 40 MG Tablet PO (20:05)
[2024-05-25] MEDS: Mirtazapine 15 MG Tablet PO (20:05)
[2024-05-25 21:51] VITALS: PULSE 61
[2024-05-26 06:00] VITALS: BP 112/58; PULSE 68; RESP 16; TEMP 36.4; O2SAT 97
[2024-05-26] MEDS: Levothyroxine 125 MCG Tablet PO (06:18)
[2024-05-26] MEDS: oxyCODONE 5 MG Tablet PO ×2 (06:18→20:12)
[2024-05-26] MEDS: Carvedilol 6.25 MG Tablet PO ×2 (09:06→16:49)
[2024-05-26] MEDS: APIXABAN 5 MG TABLET PO ×2 (09:06→20:08)
[2024-05-26] MEDS: Furosemide 40 MG Tablet PO (09:06)
[2024-05-26] MEDS: Lacosamide 100 MG Tablet PO ×2 (09:06→20:06)
[2024-05-26] MEDS: Pantoprazole Sodium 40 MG Tablet PO (09:06)
[2024-05-26] MEDS: Cholecalciferol (VIT D3) 25 MCG TABLET (1,000 UNITS) PO (09:06)
--- NOTE | 2024-05-26 10:30 | PN_ITS ---
Subjective Subjective Afebrile VSS -blood pressure is within goal. Heart rate is within normal limits. Maintaining appropriate oxygen saturation on RA Oral intake - FOOD eating 75 to 100% of most of her meals. FLUIDS improved Discussed with nursing -remains incontinent of both urine and stool. At times is unaware that she has soiled her depends. Sleeping well at night. Reviewed the THERAPY notes Scored only 19 out of a possible 30 on COG LOG yesterday. Still requiring a Eron lift to stand Medication list reviewed. Tells me that her back pain is getting better. She has been spending more time up in the wheelchair and I have not heard her yelling out when they transfer her into the wheelchair. She denies lightheadedness, chest pain, shortness of breath, cough, palpitations, nausea/vomiting/abdominal pain, dysuria and calf pain. Still with some back pain but, it is improving. Objective Data Objective Data Vital Signs: Vital Signs Temp Pulse Resp BP Pulse Ox O2 Del Method 97.5 F L 68 16 112/58 L 97 Room Air 05/26/24 06:00 05/26/24 06:00 05/26/24 06:00 05/26/24 06:00 05/26/24 06:00 05/26/24 06:00 Oxygen Delivery Method Room Air Weight: 226 lb 9.599 oz Body Mass Index (BMI) 45.7 Intake & Output: Intake and Output for Last 24 Hours 05/24/24 05/25/24 05/26/24 23:59 23:59 23:59 Intake Total 1200 / 1200 1979 440 / 440 Balance 1200 / 1200 1979 440 / 440 Lab / Micro Data 05/22/24 06:31 05/22/24 06:31 Labs: Laboratory Results - last 24 hr 05/19/24 16:02: HLA-B27 Negative Micro: Microbiology 05/20/24 00:20 Stool Stool Occult Blood (ALEC) - Final Occult Blood Positive Physical Exam Const alert, oriented x3 and no apparent distress Constitutional Narrative: tends to perseverate and has poor focus and can not stay on topic. Significant cog deficit per ST. General Appearance: cooperative Resp clear to auscultation bilaterally Resp Narrative: Diminished in the bases, suspect due to body habitus. No conversational dyspnea. Not tachypneic. Cardio regular rate and regular rhythm Cardio Narrative: no ectopy. No gallop GI normal to inspection, nondistended, normoactive bowel sounds, soft to palpation and non-tender Extremity no calf tenderness Extremity Narrative: mild pitting edema of just the ankles Some puffiness of the hands. Bruising on the arms is resolving. Skin Rashes: no rashes Psych cooperative Psych Narrative: Does not seem anxious or depressed. Making good eye contact. Hard time focusing. Thought Content: No suicidality, No homicidality and No hallucination(s) Assessment & Plan Assessment/Plan (1) Debility: (2) Dysphagia: QUALIFIERS: Dysphagia type: oropharyngeal phase Qualified Code(s): R13.12 - Dysphagia, oropharyngeal phase (3) Generalized weakness: (4) Acute on chronic anemia: (5) Septic shock: (6) Pyelonephritis due to Escherichia coli: (7) Acute renal failure superimposed on stage 3b chronic kidney disease: QUALIFIERS: Acute renal failure type: unspecified Qualified Code(s): N17.9 - Acute kidney failure, unspecified; N18.32 - Chronic kidney disease, stage 3b (8) Acute respiratory failure with hypoxemia: (9) Status epilepticus: (10) Acute hyperkalemia: (11) Metabolic acidosis: (12) Chronic kidney disease: QUALIFIERS: Chronic kidney disease stage: stage 3 (moderate) C hronic kidney disease stage 3 subtype: stage 3b (GFR 30-44) Qualified Code(s): N18.32 - Chronic kidney disease, stage 3b (13) Heme + stool: (14) Acute on chronic back pain: (15) Spinal osteophytosis: (16) Osteopenia: QUALIFIERS: Osteopenia location: multiple sites Qualified Code(s): M85.89 - Other specified disorders of bone density and structure, multiple sites (17) Encephalopathy: QUALIFIERS: Encephalopathy type: unspecified encephalopathy Q ualified Code(s): G93.40 - Encephalopathy, unspecified PLAN: Plan 1. Continue therapy. Will likely not be able to go home at [place] from rehab. Still requiring a Eron lift. Having a hard time remembering what she is supposed to be doing and then doing it. Requires a lot of cuing with therapy. I am suspicious that she may have some anoxic encephalopathy. she was intubated at presentation to the ED and we do not know how long she was down at home before a friend called 911. PH at admission was 7. I do not know how long she was in status epilpticus prior to having the EEG and being transferred to [facility]. 2. Eating better and sleeping at night with the addition of Remeron to the drug regimen. 3. Repeat a CBC with differential and BMP in the AM. Charges/Coding Visit Charges Inpatient E&M: 95298 Subs Hosp L1
[2024-05-26] MEDS: Ferrous Sulfate 325 MG Tablet PO (11:47)
--- NOTE | 2024-05-26 17:42 | NURSING ---
pt refusing to turn or reposition in bed throughout the day
[2024-05-26 17:52] VITALS: BP 109/50; PULSE 68; RESP 16; TEMP 36.6; O2SAT 97
[2024-05-26] MEDS: Atorvastatin Calcium 40 MG Tablet PO (20:07)
[2024-05-26] MEDS: Senna/Docusate Sodium 1 Tablet 2 TABLET PO (20:07)
[2024-05-26] MEDS: Mirtazapine 15 MG Tablet PO (20:07)
[2024-05-26 21:52] VITALS: RESP 18
[2024-05-27 05:40] VITALS: BP 128/59; PULSE 66; RESP 16; TEMP 36.3; O2SAT 95
[2024-05-27 05:53] LABS: Absolute Lymphocyte Count 1.59 X10^3/uL (0.83-4.51); Absolute Neutrophil Count 4.5 X10^3/uL (2.0-7.7); Basophil# 0.07 X10^3/uL; Eosinophils% 4.3 % (0-5); Hematocrit 28.2 % (37-47); Hemoglobin 8.5 g/dL (12.0-15.0); Lymphocyte # 1.59 X10^3/ul (0.83-4.51); Lymphocyte % 22.7 % (19-41); Mean Corp Hgb Conc 30.1 g/dL (32-36); Mean Corpuscular Hgb 30.1 pg (27.0-32.0); Mean Platelet Vol. 12.1 fl (6.2-12.0); Monocyte# 0.53 X10^3/uL; Monocyte% 7.6 % (0-10); NRBC Flagged by Analyzer 0 % (0-5); Neutrophil # 4.46 X10^3/uL (2.7-7.7); Neutrophil % 63.7 % (47-70); Platelet Count 314 K/mm3 (150-450); RBC Distribution Width SD 62.2 fl (35.1-43.9); Red Blood Count 2.82 M/mm3 (4.2-5.4)
[2024-05-27] MEDS: Levothyroxine 125 MCG Tablet PO (06:08)
[2024-05-27] MEDS: oxyCODONE 5 MG Tablet PO ×2 (06:08→21:08)
[2024-05-27] MEDS: Lacosamide 100 MG Tablet PO ×2 (07:57→21:04)
[2024-05-27] MEDS: Furosemide 40 MG Tablet PO (07:57)
[2024-05-27] MEDS: Cholecalciferol (VIT D3) 25 MCG TABLET (1,000 UNITS) PO (07:57)
[2024-05-27] MEDS: Pantoprazole Sodium 40 MG Tablet PO (07:57)
[2024-05-27] MEDS: Carvedilol 6.25 MG Tablet PO ×2 (07:57→16:50)
[2024-05-27] MEDS: APIXABAN 5 MG TABLET PO ×2 (07:57→21:04)
[2024-05-27 08:06] LABS: Albumin, Serum 2.2 g/dL (3.2-5.0); Anion Gap 10 (5-15); BUN 42 mg/dL (7-18); BUN/Creat Ratio 21.2 RATIO (10-20); Calcium,Total 8.4 mg/dL (8.5-10.1); Chloride 106 mmol/L (98-107); Creatinine, Serum 1.98 mg/dL (0.55-1.02); EST Glomerular Filtration Rate 26 mL/min (>60); Est Glom Filt Rate - Afr Amer 31 mL/min (>60); Estimated Creatinine Clearance 24.07 ml/min; Glucose 85 mg/dL (74-106); Potassium 4.2 mmol/L (3.5-5.1); Sodium Level 140 mmol/L (136-145)
--- NOTE | 2024-05-27 11:56 | PCM.PROGNOTE ---
Subjective Subjective Afebrile VSS - Maintaining appropriate oxygen saturation on RA Oral intake - FOOD good FLUIDS good Weight is stable Discussed with nursing - still needing a bedpan due to truncal weakness/instability. She is total assist for the bedpan and for clothing management. Still incontinent of urine. Reviewed the THERAPY notes Medication list reviewed. All lab from today ws personally reviewed. White blood cell count is normal at 7 and the differential is unremarkable.. The hemoglobin is 8.5 and stable. Platelets are within normal limits. Sodium is 140 and the potassium is 4.2. BUN is 42 with a creatinine of 1.98. GFR is 26 which is consistent with stage IV chronic renal failure. Prior to all the recent events she had been stage 3b to stage 4. Was previously on 60 mg of Lasix daily and is now on 40 mg. Calcium corrected for hypoalbuminemia is within normal limits. Denies lightheadedness, CP, SOB, cough, ABD pain, dysuria, calf pain. Has back pain but, she is moving more than she was and not yellling out. Objective Data Objective Data Vital Signs: Vital Signs Temp Pulse Resp BP Pulse Ox O2 Del Method 97.4 F L 66 16 128/59 H 95 Room Air 05/27/24 05:40 05/27/24 05:40 05/27/24 05:40 05/27/24 05:40 05/27/24 05:40 05/27/24 05:40 Oxygen Delivery Method Room Air Weight: 226 lb 9.599 oz Body Mass Index (BMI) 45.7 Intake & Output: Intake and Output for Last 24 Hours 05/25/24 05/26/24 05/27/24 23:59 23:59 23:59 Intake Total 1979 1400 / 1400 Balance 1979 1400 / 1400 Lab / Micro Data 05/27/24 05:42 05/27/24 05:42 Labs: Laboratory Results - last 24 hr 05/27/24 05:42: WBC 7.0, RBC 2.82 L, Hgb 8.5 L, Hct 28.2 L, MCV 100.0 H, MCH 30.1, MCHC 30.1 L, RDW Std Deviation 62.2 H, RDW Coeff of Parris 17.0 H, Plt Count 314, MPV 12.1 H, Immature Gran % (Auto) 0.700, Neut % (Auto) 63.7, Lymph % (Auto) 22.7, Carver % (Auto) 7.6, Eos % (Auto) 4.3, Baso % (Auto) 1.0, Absolute Neuts (auto) 4.5, Absolute Lymphs (auto) 1.59, Nucleated RBC % 0, Sodium 140, Potassium 4.2, Chloride 106, Carbon Dioxide 24.0, Anion Gap 10, BUN 42 H, Creatinine 1.98 H, Estim Creat Clear Calc 24.07, Est GFR (MDRD) Af Amer 31 L, Est GFR (MDRD) Non-Af 26 L, BUN/Creatinine Ratio 21.2 H, Glucose 85, Calcium 8.4 L, Albumin 2.2 L Micro: Microbiology 05/20/24 00:20 Stool Stool Occult Blood (ALEC) - Final Occult Blood Positive Physical Exam Const alert and no apparent distress General Appearance: cooperative Resp clear to auscultation bilaterally Resp Narrative: Diminished in the bases, suspect due to body habitus. No conversational dyspnea. Not tachypneic. Cardio regular rate and regular rhythm Cardio Narrative: no ectopy. No gallop GI normal to inspection, nondistended, normoactive bowel sounds, soft to palpation and non-tender Extremity no calf tenderness Extremity Narrative: mild pitting edema of just the ankles Some puffiness of the hands. Bruising on the arms is resolving. Skin Rashes: no rashes Psych cooperative Psych Narrative: Does not seem anxious or depressed. Making good eye contact. Hard time focusing. Assessment & Plan Assessment/Plan (1) Debility: (2) Dysphagia: QUALIFIERS: Dysphagia type: oropharyngeal phase Qualified Code(s): R13.12 - Dysphagia, oropharyngeal phase (3) Generalized weakness: (4) Acute on chronic anemia: (5) Chronic kidney disease: QUALIFIERS: Chronic kidney disease stage: stage 3 (moderate) Chronic kidney disease stage 3 subtype: stage 3b (GFR 30-44) Qualified Code(s): N18.32 - Chronic kidney disease, stage 3b (6) Heme + stool: (7) Acute on chronic back pain: (8) Spinal osteophytosis: (9) Encephalopathy: QUALIFIERS: Encephalopathy type: unspecified encephalopathy Qualified Code(s): G93.40 - Encephalopathy, unspecified (10) Urinary incontinence: QUALIFIERS: Urinary Incontinence type: unspecified incontinence Qualified Code(s): R32 - Unspecified urinary incontinence (11) Fecal incontinence: QUALIFIERS: Fecal incontinence type: unspecified Qualified Code(s): R15.9 - Full incontinence of feces PLAN: Plan 1. Continue therapy 2. Recheck lab in 4 to 5 days. 3. Check a weight today. 4. Gen wraps to the bilateral lower extremities to control edema secondary to venous insufficiency 5. In all likelihood will need to go to SNF at [place] from rehab. D/W SW and pt. Charges/Coding Visit Charges Inpatient E&M: 79078 Subs Hosp L1
[2024-05-27] MEDS: Ferrous Sulfate 325 MG Tablet PO (12:32)
[2024-05-27 13:53] VITALS: BMI 45.3
--- NOTE | 2024-05-27 16:47 | NURSING ---
pt refused repositioning in bed throughout the day
[2024-05-27 17:45] VITALS: BP 130/47; PULSE 69; RESP 18; TEMP 37.2; O2SAT 97
[2024-05-27] MEDS: Mirtazapine 15 MG Tablet PO (21:04)
[2024-05-27] MEDS: Atorvastatin Calcium 40 MG Tablet PO (21:04)
[2024-05-27] MEDS: Senna/Docusate Sodium 1 Tablet 2 TABLET PO (21:05)
[2024-05-28 06:00] VITALS: BP 122/44; PULSE 66; RESP 16; TEMP 36.6; O2SAT 95
[2024-05-28] MEDS: Levothyroxine 125 MCG Tablet PO (06:09)
[2024-05-28] MEDS: oxyCODONE 5 MG Tablet PO ×3 (06:12→20:30)
[2024-05-28 08:30] VITALS: BP 110/62; PULSE 62
[2024-05-28] MEDS: Senna/Docusate Sodium 1 Tablet 2 TABLET PO ×2 (08:37→20:17)
[2024-05-28] MEDS: Furosemide 40 MG Tablet PO (08:37)
[2024-05-28] MEDS: Lacosamide 100 MG Tablet PO ×2 (08:37→20:27)
[2024-05-28] MEDS: Pantoprazole Sodium 40 MG Tablet PO (08:38)
[2024-05-28] MEDS: Carvedilol 6.25 MG Tablet PO ×2 (08:38→16:58)
[2024-05-28] MEDS: Cholecalciferol (VIT D3) 25 MCG TABLET (1,000 UNITS) PO (08:39)
[2024-05-28] MEDS: APIXABAN 5 MG TABLET PO ×2 (08:39→20:17)
[2024-05-28] MEDS: Ferrous Sulfate 325 MG Tablet PO (11:59)
[2024-05-28] MEDS: Magnesium Hydroxide 30 ML UDC PO (16:59)
[2024-05-28 18:00] VITALS: BP 104/63; PULSE 69; RESP 18; TEMP 36.7; O2SAT 95
[2024-05-28] MEDS: Mirtazapine 15 MG Tablet PO (20:17)
[2024-05-28] MEDS: Atorvastatin Calcium 40 MG Tablet PO (20:17)
[2024-05-28] MEDS: Acetaminophen 500 MG Tablet PO (20:30)
[2024-05-29] MEDS: Levothyroxine 125 MCG Tablet PO (04:54)
[2024-05-29 06:38] VITALS: BP 117/50; PULSE 58; RESP 16; TEMP 36.3; O2SAT 95
[2024-05-29] MEDS: oxyCODONE 5 MG Tablet PO ×2 (06:53→21:13)
--- NOTE | 2024-05-29 06:57 | NURSING ---
0657 Pt had milk of mag last night with no results. Pt refusing milk of mag and/or miralax that was offered this morning. RN aware.
[2024-05-29] MEDS: Senna/Docusate Sodium 1 Tablet 2 TABLET PO ×2 (07:35→20:59)
[2024-05-29] MEDS: Furosemide 40 MG Tablet PO (07:35)
[2024-05-29] MEDS: Cholecalciferol (VIT D3) 25 MCG TABLET (1,000 UNITS) PO (07:35)
[2024-05-29] MEDS: Pantoprazole Sodium 40 MG Tablet PO (07:35)
[2024-05-29] MEDS: Carvedilol 6.25 MG Tablet PO ×2 (07:35→17:01)
[2024-05-29] MEDS: Lacosamide 100 MG Tablet PO ×2 (07:35→20:59)
[2024-05-29] MEDS: APIXABAN 5 MG TABLET PO ×2 (07:35→20:59)
[2024-05-29] MEDS: Polyethylene Glycol 3350 17 GM PACKET PO (07:56)
[2024-05-29 10:00] VITALS: BMI 45.3
[2024-05-29] MEDS: Magnesium Hydroxide 30 ML UDC PO (13:49)
[2024-05-29] MEDS: Ferrous Sulfate 325 MG Tablet PO (13:49)
[2024-05-29 17:53] VITALS: BP 122/47; PULSE 61; RESP 18; TEMP 37; O2SAT 94
--- NOTE | 2024-05-29 19:01 | NURSING ---
Refused R/S. Patient has had x2 small bowel movements so far. BS x4, abdomen soft. Flatus present. Will continue to monitor.
[2024-05-29] MEDS: Mirtazapine 15 MG Tablet PO (20:57)
[2024-05-29] MEDS: Atorvastatin Calcium 40 MG Tablet PO (20:59)
[2024-05-29] MEDS: Acetaminophen 500 MG Tablet PO (21:13)
[2024-05-30 05:34] LABS: Hematocrit 27.6 % (37-47); Hemoglobin 8.3 g/dL (12.0-15.0)
[2024-05-30 05:51] LABS: Albumin, Serum 1.9 g/dL (3.2-5.0); BUN 43 mg/dL (7-18); BUN/Creat Ratio 22.1 RATIO (10-20); Calcium,Total 8.4 mg/dL (8.5-10.1); Chloride 106 mmol/L (98-107); Creatinine, Serum 1.95 mg/dL (0.55-1.02); EST Glomerular Filtration Rate 26 mL/min (>60); Est Glom Filt Rate - Afr Amer 32 mL/min (>60); Estimated Creatinine Clearance 24.28 ml/min; Glucose 86 mg/dL (74-106); Phosphorus 3.7 mg/dL (2.5-4.9); Potassium 4.8 mmol/L (3.5-5.1); Sodium Level 140 mmol/L (136-145)
[2024-05-30] MEDS: oxyCODONE 5 MG Tablet PO ×2 (06:08→21:12)
[2024-05-30] MEDS: Levothyroxine 125 MCG Tablet PO (06:08)
[2024-05-30 06:25] VITALS: BP 114/70; PULSE 53; RESP 16; TEMP 36.3; O2SAT 96
[2024-05-30] MEDS: Cholecalciferol (VIT D3) 25 MCG TABLET (1,000 UNITS) PO (07:40)
[2024-05-30] MEDS: Pantoprazole Sodium 40 MG Tablet PO (07:40)
[2024-05-30] MEDS: Carvedilol 6.25 MG Tablet PO ×2 (07:41→16:53)
[2024-05-30] MEDS: Senna/Docusate Sodium 1 Tablet 2 TABLET PO ×2 (07:41→21:07)
[2024-05-30] MEDS: Furosemide 40 MG Tablet PO (07:41)
[2024-05-30] MEDS: APIXABAN 5 MG TABLET PO ×2 (07:41→21:07)
[2024-05-30] MEDS: Lacosamide 100 MG Tablet PO ×2 (07:41→21:05)
--- NOTE | 2024-05-30 08:41 | PN_ITS ---
Subjective Subjective Ting was seen on team rounds today. Her friend Cayla was present in the room and her son Matty was on speaker phone. Afebrile VSS -blood pressure is well-controlled. Heart rate ranged from 53-69 over the weekend. Maintaining appropriate oxygen saturation on RA Oral intake - FOOD good FLUIDS good Discussed with nursing - having constipation.......got MOM this weekend and had 4 small BM's yesterday. Was confused Thursday night. She is on Miralax PRN and took it on and then not again until 05/29. She is also on senna 2 tablets twice daily which she has been compliant with since Thursday evening. She was refusing doses prior to that because she had several BM's one day after a Dulcolax suppository. . Reviewed the THERAPY notes Medication list reviewed. All lab drawn this morning was personally reviewed. Hemoglobin is stable at 8.3. The sodium is stable at 140 and the potassium is 4.8 today. Serum bicarb is normal at 27. BUN is stable at 43 and the creatinine is currently 1.95 which is stable from 1.98 on 05/27/2024. GFR is 26 which is consistent with stage IV chronic renal failure. Calcium corrected for hypoalbuminemia is within normal limits and the phosphorus is normal at 3.7. Albumin is only 1.9. Swelling in the legs is much better with JEANCARLOS wraps Denies CHRISTIE, lightheadedness, N/V/abd pain, palpitations, dysuria, calf pain. She tells me that for the past 6 months or so she falls asleep during the day suddenly. This happens when watching TV. She has been driving and she does not fall asleep when she is driving. Memory has been declining. It takes her longer to do things.....like grocery shop, cook, bathe etc. She fatigues more easily. From 2021-jun her CREAT ranged from 1.29 to a high of 1.64......only once at 1.64 and the next month it was 1.21. Since June of 2023 it has ranged form 1.56 - 2.42 until 05/01/24 when it was 7.93. GFR prior to June of this year was in the 30's and 40's and since June of 2023 it has 20-34 Sleep study in February was negative for sleep apnea. Objective Data Objective Data Vital Signs: Vital Signs Temp Pulse Resp BP Pulse Ox O2 Del Method 97.4 F L 53 L 16 114/70 96 Room Air 05/30/24 06:25 05/30/24 06:25 05/30/24 06:25 05/30/24 06:25 05/30/24 06:25 05/30/24 06:25 Oxygen Delivery Method Room Air Weight: 224 lb 3.362 oz Body Mass Index (BMI) 45.3 Intake & Output: Intake and Output for Last 24 Hours 05/28/24 05/29/24 05/30/24 23:59 23:59 23:59 Intake Total 1939 / 2119 360 / 360 Output Total 325 / 325 Balance 1939 1795 / 1795 360 / 360 Lab / Micro Data 05/30/24 05:16 05/30/24 05:16 Labs: Laboratory Results - last 24 hr 05/30/24 05:16: Hgb 8.3 L, Hct 27.6 L, Sodium 140, Potassium 4.8, Chloride 106, Carbon Dioxide 27.0, BUN 43 H, Creatinine 1.95 H, Estim Creat Clear Calc 24.28, Est GFR (MDRD) Af Amer 32 L, Est GFR (MDRD) Non-Af 26 L, BUN/Creatinine Ratio 22.1 H, Glucose 86, Calcium 8.4 L, Phosphorus 3.7, Albumin 1.9 L Micro: Microbiology 05/20/24 00:20 Stool Stool Occult Blood (ALEC) - Final Occult Blood Positive Physical Exam Const alert and no apparent distress Constitutional Narrative: Gets off topic easily. 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 General Appearance: cooperative Resp clear to auscultation bilaterally Resp Narrative: diminished throughout not tachypneic Cardio regular rate, regular rhythm and no rub Cardio Narrative: no ectopy GI normal to inspection, nondistended, normoactive bowel sounds, soft to palpation and non-tender GI Narrative: Nu guarding with palpation Extremity no calf tenderness Extremity Narrative: swelling is better with the JEANCARLOS wraps in place Skin Rashes: no rashes Assessment & Plan Assessment/Plan (1) Debility: (2) Dysphagia: QUALIFIERS: Dysphagia type: oropharyngeal phase Qualified Code(s): R13.12 - Dysphagia, oropharyngeal phase (3) Generalized weakness: (4) Acute on chronic anemia: (5) Chronic kidney disease: QUALIFIERS: Chronic kidney disease stage: stage 3 (moderate) C hronic kidney disease stage 3 subtype: stage 3b (GFR 30-44) Qualified Code(s): N18.32 - Chronic kidney disease, stage 3b (6) Heme + stool: (7) Acute on chronic back pain: (8) Spinal osteophytosis: (9) Encephalopathy: QUALIFIERS: Encephalopathy type: unspecified encephalopathy Q ualified Code(s): G93.40 - Encephalopathy, unspecified (10) Urinary incontinence: QUALIFIERS: Urinary Incontinence type: unspecified incontinence Q ualified Code(s): R32 - Unspecified urinary incontinence (11) Fecal incontinence: QUALIFIERS: Fecal incontinence type: unspecified Qualified Code(s): R15.9 - Full incontinence of feces PLAN: Plan 1. Continue therapy 2. Decrease the Remeron to 7.5 mg. 3. Monitor the HR closely.........she is on Coreg and now is on Vimpat.....this can increase the risk of bradycardia. 4. Potassium is creeping up and is 4.8 today. She is not on a potassium supplement and she is taking Lasix 40 mg daily. Will add a potassium restriction to the current diet and recheck a BMP in a few days. 5. Ting is reticent to make a decision about a SNF she would prefer. She tells me and everyone else that she will be going home at [place]. DC is next Thursday and I encouraged her to have a back up plan in the event that she is not well enough to go home independently. 6. Matty will be talking with the about SNF. I suspect the progressive renal failure is contributing to fatigue, cognitive dysfunction, falling asleep when not busy. Will need to follow up with Dr. Albrecht going forward. Charges/Coding Visit Charges Inpatient E&M: 61039 Subs Hosp L2
[2024-05-30] MEDS: Polyethylene Glycol 3350 17 GM PACKET PO (10:23)
[2024-05-30] MEDS: Ferrous Sulfate 325 MG Tablet PO (12:05)
--- NOTE | 2024-05-30 12:48 | CASEMGMT ---
Addendum entered by Yahaira Lincoln 05/31/24 08:52: [facility] does not have a bed. SAMIR followed up with [facility] as that is FOC. Addendum entered by Yahaira Lincoln 05/30/24 15:36: Referrals placed to [facility] and [facility] via [facility] Original Note: Social Work IDT met with patient, friend Cayla at bedside, and phoned son for Team meeting. Discussed patient's progress in PT/OT/ST/SN. Educated to Medicare approval with DC 06/10. Pt is currently a paulo lift, x2 assist, having difficulty with memory, attention, and poor safety awareness. Broached discussion of IDT recommending SNF stay at [place]. Pt immediately refuted, waving her hand, stating she is not going to need to consider SNF placement; she is only going home. SAMIR and inquired about logistics of homegoing. Pt stated she has a first floor set up and has access to anything she needs. SW inquired who would be assisting pt at home. Pt replied, me, myself and I. Dr expressed recommendation of transfer to SNF, not home. SAMIR lightheartedly offered to provide pt with printed list of SNFs that include quality and resource data via [facility] Guide, as this worker came prepared with printed list. Pt refuted stated, you can keep your list, I don't need it. I know all the facilities. I know you are just doing your job. You all are [referencing the team members]. But who says I'm not going to get better by next week. I am going home. SAMIR appreciated that and recognized, just as pt has expertise in her field, the team has expertise in theirs. Explained the team is able to take the 'big picture' into consideration, not have any emotion or bias attached to the DC decision, and is using their expertise given pt's PLOF, current progress, and anticipated progress to DC date, that it is unlikely pt would be able to return home independently and safely by the time of DC date. SAMIR shared with pt that d/t to pt's resilient personality, she hopes pt will 'prove IDT wrong' but if not, the goal is to be prepared with an alternate DC plan. SAMIR did offer pt's appeal rights closer to DC date, but again, a DC plan will need to be in place. Pt appreciated this worker and team's role, and stated, I would be disappointed if you all weren't doing your jobs and having a plan B in place, but I don't have to accept plan B. I can give you a plan B, but I don't have to accept it. SW agreed and thanked pt for perspective; agreed plan A will be home, but if plan A cannot happen safely, to ensure there is a plan B. SW requested pt to entertain this worker with a plan B and what SNFs pt would consider. Pt stated, [facility] and [facility]. SW appreciative of pt voicing her preferences and this worker will place referrals. Pt agreed. SW will continue to follow for DC planning and support. SW offered for son to contact this worker with any questions and provided contact information. Will ReTeam next week. Yahaira Lincoln TITLE I DIRECTOR [employer]
[2024-05-30 18:00] VITALS: BP 128/53; PULSE 56; RESP 17; TEMP 36.6; O2SAT 96
[2024-05-30 20:45] VITALS: PULSE 56; RESP 17; O2SAT 96
[2024-05-30] MEDS: Mirtazapine 15 MG Tablet 7.5 MG PO (21:05)
[2024-05-30] MEDS: Atorvastatin Calcium 40 MG Tablet PO (21:07)
[2024-05-31 06:00] VITALS: BP 142/56; PULSE 57; RESP 18; TEMP 36.4; O2SAT 94
[2024-05-31] MEDS: Levothyroxine 125 MCG Tablet PO (06:48)
[2024-05-31] MEDS: oxyCODONE 5 MG Tablet PO (06:48)
--- NOTE | 2024-05-31 07:21 | PCM.PROGNOTE ---
Subjective Subjective Afebrile VSS - Maintaining appropriate oxygen saturation on RA Oral intake - FOOD good FLUIDS good Weight is down about 2 pounds since 05/18/2024. Discussed with nursing - no problems that need addressed Reviewed the THERAPY notes Medication list reviewed. Slept well last night. alert and appropriate today. Denies lightheadedness, CP, SOB, orthopnea, palpitations, N/V/Abd pain, dysuria, calf pain. Has not been c/o back pain to me. Objective Data Objective Data Vital Signs: Vital Signs Temp Pulse Resp BP Pulse Ox O2 Del Method 97.5 F L 57 L 18 142/56 H 94 Room Air 05/31/24 06:00 05/31/24 06:00 05/31/24 06:00 05/31/24 06:00 05/31/24 06:00 05/31/24 06:00 Oxygen Delivery Method Room Air Weight: 224 lb 13.944 oz Body Mass Index (BMI) 45.3 Intake & Output: Intake and Output for Last 24 Hours 05/29/24 05/30/24 05/31/24 23:59 23:59 23:59 Intake Total 2120 / 2120 203 / 203 300 / 300 Output Total 325 / 325 352 / 352 Balance 1795 / 1795 1683 / 1683 300 / 300 Lab / Micro Data 05/30/24 05:16 05/30/24 05:16 Micro: Microbiology 05/20/24 00:20 Stool Stool Occult Blood (ALEC) - Final Occult Blood Positive Physical Exam Const alert and no apparent distress General Appearance: cooperative Resp clear to auscultation bilaterally Resp Narrative: diminished throughout not tachypneic Cardio regular rate, regular rhythm and no rub Cardio Narrative: no ectopy GI normal to inspection, nondistended, normoactive bowel sounds, soft to palpation and non-tender GI Narrative: Nu guarding with palpation Extremity no calf tenderness Extremity Narrative: swelling is better with the JEANCARLOS wraps in place Skin Rashes: no rashes Assessment & Plan Assessment/Plan (1) Debility: (2) Dysphagia: QUALIFIERS: Dysphagia type: oropharyngeal phase Qualified Code(s): R13.12 - Dysphagia, oropharyngeal phase (3) Generalized weakness: (4) Acute on chronic anemia: (5) Chronic kidney disease: QUALIFIERS: Chronic kidney disease stage: stage 3 (moderate) Chronic kidney disease stage 3 subtype: stage 3b (GFR 30-44) Qualified Code(s): N18.32 - Chronic kidney disease, stage 3b (6) Heme + stool: (7) Acute on chronic back pain: (8) Spinal osteophytosis: (9) Encephalopathy: QUALIFIERS: Encephalopathy type: unspecified encephalopathy Qualified Code(s): G93.40 - Encephalopathy, unspecified (10) Urinary incontinence: QUALIFIERS: Urinary Incontinence type: unspecified incontinence Qualified Code(s): R32 - Unspecified urinary incontinence PLAN: Plan 1. Continue therapy 2. No changes to the drug regimen today. Continue the lower dose of Remeron. 3. We discussed her hesitation to designate a SNF she would prefer. She now realizes we have to have a plan for where she will go at [place] IF she can not go home and live independently. She tells me she would prefer [facility]. I reinforced with her that this is meant to be a temporary arrangement until she can get strong enough to be able to ambulate. Has a chair lift at home to get her up the steps. She has a walk in shower. 4. Will follow up with Dr. Albrecht post [place] and also with Dr. Jackson. 5. The HR is slowing.....more likely than not due to the vimpat + beta rosemarie. Will decrease the Coreg to 3.125 mg BID. If the BP increases may need to add another antihypertensive........probably Hydralazine. Will order PRN Hydralazine for now if the BP is > 150/85 Charges/Coding Visit Charges Inpatient E&M: 52875 Subs Hosp L1
[2024-05-31] MEDS: Cholecalciferol (VIT D3) 25 MCG TABLET (1,000 UNITS) PO (08:16)
[2024-05-31] MEDS: Pantoprazole Sodium 40 MG Tablet PO (08:16)
[2024-05-31] MEDS: Polyethylene Glycol 3350 17 GM PACKET PO (08:16)
[2024-05-31] MEDS: Furosemide 40 MG Tablet PO (08:16)
[2024-05-31] MEDS: Senna/Docusate Sodium 1 Tablet 2 TABLET PO ×2 (08:16→20:35)
[2024-05-31] MEDS: Lacosamide 100 MG Tablet PO ×2 (08:16→20:40)
[2024-05-31] MEDS: APIXABAN 5 MG TABLET PO ×2 (08:16→20:35)
[2024-05-31] MEDS: Carvedilol 6.25 MG Tablet PO (08:17)
[2024-05-31] MEDS: Ferrous Sulfate 325 MG Tablet PO (12:02)
[2024-05-31] MEDS: Carvedilol 3.125 MG TABLET PO (17:26)
[2024-05-31 17:51] VITALS: BP 135/57; PULSE 61; RESP 18; TEMP 36.6; O2SAT 97
[2024-05-31] MEDS: Mirtazapine 15 MG Tablet 7.5 MG PO (20:34)
[2024-05-31] MEDS: Atorvastatin Calcium 40 MG Tablet PO (20:35)
[2024-05-31 22:00] VITALS: PULSE 61; RESP 16; O2SAT 97
[2024-06-01] MEDS: Levothyroxine 125 MCG Tablet PO (05:11)
[2024-06-01 06:00] VITALS: BP 113/68; PULSE 55; RESP 16; TEMP 36.4; O2SAT 96
[2024-06-01] MEDS: oxyCODONE 5 MG Tablet PO (06:55)
[2024-06-01 06:56] VITALS: BMI 45.8
[2024-06-01] MEDS: Senna/Docusate Sodium 1 Tablet 2 TABLET PO ×2 (07:59→21:12)
[2024-06-01] MEDS: Polyethylene Glycol 3350 17 GM PACKET PO (07:59)
[2024-06-01] MEDS: Lacosamide 100 MG Tablet PO ×2 (08:01→21:11)
[2024-06-01] MEDS: Furosemide 40 MG Tablet PO (08:01)
[2024-06-01] MEDS: Pantoprazole Sodium 40 MG Tablet PO (08:01)
[2024-06-01] MEDS: Cholecalciferol (VIT D3) 25 MCG TABLET (1,000 UNITS) PO (08:01)
[2024-06-01] MEDS: APIXABAN 5 MG TABLET PO ×2 (08:02→21:11)
[2024-06-01] MEDS: Carvedilol 3.125 MG TABLET PO ×2 (08:03→16:43)
[2024-06-01] MEDS: Ferrous Sulfate 325 MG Tablet PO (11:57)
--- NOTE | 2024-06-01 15:12 | CASEMGMT ---
Social Work SW spoke with pt to update the [facility] and [facility] can accept, pending bed availability. Pt's [facility] is [facility]. Pt expressed she is agreeable to SNF placement at [place]. I know when I need to admit I'm wrong, and take responsibility, and I need to go with plan B. SW praised pt for make that realization and admitting to needing additional support. SW to assist with finalizing DC plans closer to 06/10. Pt appreciative. SW updated both SNFs. Yahaira Lincoln FORM SETTER [employer] BUDGET COORDINATOR
[2024-06-01 17:18] VITALS: BP 109/51; PULSE 62; RESP 16; TEMP 36.5; O2SAT 94
[2024-06-01] MEDS: Mirtazapine 15 MG Tablet 7.5 MG PO (21:11)
[2024-06-01] MEDS: Atorvastatin Calcium 40 MG Tablet PO (21:11)
[2024-06-02] MEDS: Levothyroxine 125 MCG Tablet PO (04:49)
[2024-06-02 05:23] VITALS: BP 123/52; PULSE 72; RESP 17; TEMP 36.5; O2SAT 96
[2024-06-02] MEDS: oxyCODONE 5 MG Tablet PO (07:05)
[2024-06-02] MEDS: APIXABAN 5 MG TABLET PO ×2 (08:09→21:45)
[2024-06-02] MEDS: Cholecalciferol (VIT D3) 25 MCG TABLET (1,000 UNITS) PO (08:09)
[2024-06-02] MEDS: Carvedilol 3.125 MG TABLET PO ×2 (08:10→16:43)
[2024-06-02] MEDS: Pantoprazole Sodium 40 MG Tablet PO (08:10)
[2024-06-02] MEDS: Furosemide 40 MG Tablet PO (08:10)
[2024-06-02] MEDS: Polyethylene Glycol 3350 17 GM PACKET PO (08:10)
[2024-06-02] MEDS: Lacosamide 100 MG Tablet PO ×2 (08:11→21:45)
[2024-06-02] MEDS: Senna/Docusate Sodium 1 Tablet 2 TABLET PO (08:12)
--- NOTE | 2024-06-02 08:43 | PN_ITS ---
Subjective Subjective Afebrile VSS - HR is looking better with the decrease in the Coreg dose to 3.125 mg BID. It was dipping into the low 50's. Heart rate over the past 24 hours has ranged from 55-72. Blood pressure is well-controlled. Maintaining appropriate oxygen saturation on RA -94 to 98% Oral intake - FOOD good FLUIDS good Weight yesterday was up about 1 lb since admission. Discussed with nursing - no problems that need addressed Reviewed the THERAPY notes Medication list reviewed. No new complaints. Feels she is making progress. Working with the [employer] board starting today. Objective Data Objective Data Vital Signs: Vital Signs Temp Pulse Resp BP Pulse Ox O2 Del Method 97.7 F L 72 17 123/52 H 96 Room Air 06/02/24 05:23 06/02/24 05:23 06/02/24 05:23 06/02/24 05:23 06/02/24 05:23 06/02/24 05:23 Oxygen Delivery Method Room Air Weight: 227 lb 1.218 oz Body Mass Index (BMI) 45.8 Intake & Output: Intake and Output for Last 24 Hours 05/31/24 06/01/24 06/02/24 23:59 23:59 23:59 Intake Total 1380 / 1380 1910 / 2150 360 / 360 Balance 1380 / 1380 1910 / 2150 360 / 360 Lab / Micro Data 05/30/24 05:16 05/30/24 05:16 Micro: Microbiology 05/20/24 00:20 Stool Stool Occult Blood (ALEC) - Final Occult Blood Positive Physical Exam Const alert and no apparent distress Resp clear to auscultation bilaterally Resp Narrative: diminished throughout not tachypneic Cardio regular rate, regular rhythm and no rub Cardio Narrative: no ectopy GI normal to inspection, nondistended, normoactive bowel sounds, soft to palpation and non-tender GI Narrative: Nu guarding with palpation Extremity no calf tenderness Extremity Narrative: swelling is better with the JEANCARLOS wraps in place Skin Rashes: no rashes Assessment & Plan Assessment/Plan (1) Debility: (2) Dysphagia: QUALIFIERS: Dysphagia type: oropharyngeal phase Qualified Code(s): R13.12 - Dysphagia, oropharyngeal phase (3) Generalized weakness: (4) Acute on chronic anemia: (5) Chronic kidney disease: QUALIFIERS: Chronic kidney disease stage: stage 3 (moderate) C hronic kidney disease stage 3 subtype: stage 3b (GFR 30-44) Qualified Code(s): N18.32 - Chronic kidney disease, stage 3b (6) Heme + stool: (7) Acute on chronic back pain: (8) Spinal osteophytosis: (9) Encephalopathy: QUALIFIERS: Encephalopathy type: unspecified encephalopathy Q ualified Code(s): G93.40 - Encephalopathy, unspecified (10) Urinary incontinence: QUALIFIERS: Urinary Incontinence type: unspecified incontinence Q ualified Code(s): R32 - Unspecified urinary incontinence PLAN: Plan 1. Continue therapy 2. BMP and HH in the AM 3. Continue to monitor the blood pressure and heart rate closely. Charges/Coding Visit Charges Inpatient E&M: 15777 Subs Hosp L1
[2024-06-02] MEDS: Ferrous Sulfate 325 MG Tablet PO (11:58)
[2024-06-02 17:33] VITALS: BP 132/54; PULSE 58; RESP 16; TEMP 36.8; O2SAT 98
[2024-06-02] MEDS: Mirtazapine 15 MG Tablet 7.5 MG PO (21:45)
[2024-06-02] MEDS: Atorvastatin Calcium 40 MG Tablet PO (21:45)
[2024-06-03] MEDS: Levothyroxine 125 MCG Tablet PO (05:25)
[2024-06-03 05:51] VITALS: BP 120/40; PULSE 59; RESP 16; TEMP 36.1; O2SAT 94
[2024-06-03 07:21] LABS: Hematocrit 27.1 % (37-47); Hemoglobin 8.1 g/dL (12.0-15.0)
[2024-06-03 07:49] LABS: Phosphorus 4.9 mg/dL (2.7-4.5)
[2024-06-03 07:58] VITALS: BP 126/54; PULSE 73
[2024-06-03] MEDS: APIXABAN 5 MG TABLET PO ×2 (08:00→20:26)
[2024-06-03] MEDS: oxyCODONE 5 MG Tablet PO ×2 (08:00→20:25)
[2024-06-03] MEDS: Carvedilol 3.125 MG TABLET PO ×2 (08:00→17:16)
[2024-06-03] MEDS: Senna/Docusate Sodium 1 Tablet 2 TABLET PO ×2 (08:01→20:25)
[2024-06-03] MEDS: Pantoprazole Sodium 40 MG Tablet PO (08:01)
[2024-06-03] MEDS: Furosemide 40 MG Tablet PO (08:01)
[2024-06-03] MEDS: Lacosamide 100 MG Tablet PO ×2 (08:01→20:25)
[2024-06-03] MEDS: Cholecalciferol (VIT D3) 25 MCG TABLET (1,000 UNITS) PO (08:01)
[2024-06-03 08:27] LABS: Anion Gap 12 (5-15); BUN 45 mg/dL (4-19); BUN/Creat Ratio 21.7 RATIO (10-20); Calcium 8.2 mg/dL (7.6-11.0); Carbon Dioxide 23.4 mmol/L (22.0-29.0); Chloride 104 mmol/L (96-108); Creatinine, Serum 2.07 mg/dL (0.70-1.20); EST Glomerular Filtration Rate 24 (>60); Estimated Creatinine Clearance 23.05 ml/min; Glucose 90 mg/dL (70-99); Potassium 4.5 mmol/L (3.3-5.1); Sodium Level 140 mmol/L (133-145)
[2024-06-03] MEDS: Ferrous Sulfate 325 MG Tablet PO (12:21)
[2024-06-03 17:26] VITALS: BP 126/54; PULSE 60; RESP 17; TEMP 36.2; O2SAT 95
[2024-06-03] MEDS: Mirtazapine 15 MG Tablet 7.5 MG PO (20:26)
[2024-06-03] MEDS: Atorvastatin Calcium 40 MG Tablet PO (20:26)
[2024-06-03 22:00] VITALS: PULSE 60; RESP 16
[2024-06-04 06:00] VITALS: BP 124/78; PULSE 74; RESP 15; TEMP 36.8; O2SAT 94
[2024-06-04] MEDS: oxyCODONE 5 MG Tablet PO (06:12)
[2024-06-04] MEDS: Levothyroxine 125 MCG Tablet PO (06:12)
[2024-06-04] MEDS: Lacosamide 100 MG Tablet PO ×2 (08:06→21:08)
[2024-06-04] MEDS: Furosemide 40 MG Tablet PO (08:07)
[2024-06-04] MEDS: Pantoprazole Sodium 40 MG Tablet PO (08:07)
[2024-06-04] MEDS: Carvedilol 3.125 MG TABLET PO ×2 (08:07→17:06)
[2024-06-04] MEDS: Cholecalciferol (VIT D3) 25 MCG TABLET (1,000 UNITS) PO (08:07)
[2024-06-04] MEDS: Senna/Docusate Sodium 1 Tablet 2 TABLET PO ×2 (08:07→21:07)
[2024-06-04] MEDS: APIXABAN 5 MG TABLET PO ×2 (08:07→21:07)
[2024-06-04 09:11] VITALS: PULSE 62; RESP 16
[2024-06-04 09:13] VITALS: BMI 45.6
[2024-06-04] MEDS: Ferrous Sulfate 325 MG Tablet PO (12:35)
[2024-06-04 17:37] VITALS: BP 128/36; PULSE 79; RESP 19; TEMP 37; O2SAT 94
[2024-06-04] MEDS: Mirtazapine 15 MG Tablet 7.5 MG PO (21:06)
[2024-06-04] MEDS: Atorvastatin Calcium 40 MG Tablet PO (21:07)
[2024-06-05] MEDS: Levothyroxine 125 MCG Tablet PO (05:20)
[2024-06-05 06:00] VITALS: BP 139/48; PULSE 66; RESP 17; TEMP 36.6; O2SAT 96
[2024-06-05] MEDS: oxyCODONE 5 MG Tablet PO ×2 (06:32→17:23)
[2024-06-05] MEDS: Pantoprazole Sodium 40 MG Tablet PO (09:41)
[2024-06-05] MEDS: Carvedilol 3.125 MG TABLET PO ×2 (09:42→17:23)
[2024-06-05] MEDS: APIXABAN 5 MG TABLET PO ×2 (09:42→21:20)
[2024-06-05] MEDS: Furosemide 40 MG Tablet PO (09:42)
[2024-06-05] MEDS: Lacosamide 100 MG Tablet PO ×2 (09:43→21:20)
[2024-06-05] MEDS: Cholecalciferol (VIT D3) 25 MCG TABLET (1,000 UNITS) PO (09:45)
[2024-06-05] MEDS: Ferrous Sulfate 325 MG Tablet PO (11:17)
[2024-06-05 18:00] VITALS: BP 118/47; PULSE 61; RESP 17; TEMP 36.6; O2SAT 96
[2024-06-05] MEDS: Mirtazapine 15 MG Tablet 7.5 MG PO (21:20)
[2024-06-05] MEDS: Atorvastatin Calcium 40 MG Tablet PO (21:20)
[2024-06-06 06:00] VITALS: BP 122/66; PULSE 60; RESP 17; TEMP 36.2; O2SAT 98
[2024-06-06] MEDS: Levothyroxine 125 MCG Tablet PO (07:09)
[2024-06-06] MEDS: oxyCODONE 5 MG Tablet PO ×2 (07:11→18:39)
[2024-06-06] MEDS: Cholecalciferol (VIT D3) 25 MCG TABLET (1,000 UNITS) PO (08:28)
[2024-06-06] MEDS: Pantoprazole Sodium 40 MG Tablet PO (08:28)
[2024-06-06] MEDS: Furosemide 40 MG Tablet PO (08:28)
[2024-06-06] MEDS: Carvedilol 3.125 MG TABLET PO ×2 (08:28→16:41)
[2024-06-06] MEDS: Senna/Docusate Sodium 1 Tablet 2 TABLET PO ×2 (08:28→20:57)
[2024-06-06] MEDS: APIXABAN 5 MG TABLET PO ×2 (08:28→20:56)
[2024-06-06] MEDS: Lacosamide 100 MG Tablet PO ×2 (08:31→20:55)
--- NOTE | 2024-06-06 10:27 | PN_ITS ---
Subjective Subjective Afebrile VSS -blood pressure is well-controlled. The heart rate over the weekend has ranged from 60-79. No more heart rates in the 50s since the dose of Coreg was decreased. Maintaining appropriate oxygen saturation on RA Oral intake - FOOD good FLUIDS good Weight is stable. Discussed with nursing - no problems that need addressed Reviewed the THERAPY notes Medication list reviewed. Ting is c/o Left wrist pain. Tells me that she was using her LUE to grab the bedrail and turn on her side when she felt something pop. Since then it is sore and swollen and she is having trouble using the hand to grab the bedrail. Objective Data Objective Data Vital Signs: Vital Signs Temp Pulse Resp BP Pulse Ox O2 Del Method 97.1 F L 60 17 122/66 H 98 Room Air 06/06/24 06:00 06/06/24 06:00 06/06/24 06:00 06/06/24 06:00 06/06/24 06:00 06/06/24 06:00 Oxygen Delivery Method Room Air Weight: 226 lb 1.6 oz Body Mass Index (BMI) 45.6 Intake & Output: Intake and Output for Last 24 Hours 06/04/24 06/05/24 06/06/24 23:59 23:59 23:59 Intake Total 1230 / 1230 1640 / 1740 680 / 680 Output Total 200 / 200 Balance 1230 / 1230 1640 / 1540 480 / 480 Lab / Micro Data 06/03/24 06:48 06/03/24 06:48 Micro: Microbiology 05/20/24 00:20 Stool Stool Occult Blood (ALEC) - Final Occult Blood Positive Physical Exam Const alert General Appearance: cooperative Resp normal respiratory effort and clear to auscultation bilaterally Cardio regular rate and regular rhythm Cardio Narrative: no ectopy GI normal to inspection, nondistended, normoactive bowel sounds, soft to palpation and non-tender GI Narrative: Having regular BM's Extremity Extremity Narrative: The left wrist is swollen. The fingers are cool to the touch when compared to the R hand/wrist. NO cyanosis. Radial pulse is 2+. Very limited flexion and extension at the wrist. Painful with palpation and with any movement. Assessment & Plan Assessment/Plan (1) Debility: (2) Dysphagia: QUALIFIERS: Dysphagia type: oropharyngeal phase Qualified Code(s): R13.12 - Dysphagia, oropharyngeal phase (3) Generalized weakness: (4) Acute on chronic anemia: (5) Chronic kidney disease: QUALIFIERS: Chronic kidney disease stage: stage 3 (moderate) C hronic kidney disease stage 3 subtype: stage 3b (GFR 30-44) Qualified Code(s): N18.32 - Chronic kidney disease, stage 3b (6) Heme + stool: (7) Acute on chronic back pain: (8) Spinal osteophytosis: (9) Encephalopathy: QUALIFIERS: Encephalopathy type: unspecified encephalopathy Q ualified Code(s): G93.40 - Encephalopathy, unspecified (10) Urinary incontinence: QUALIFIERS: Urinary Incontinence type: unspecified incontinence Q ualified Code(s): R32 - Unspecified urinary incontinence (11) Left wrist pain: PLAN: Plan 1. Continue therapy 2. CBC with no differential and renal profile in the AM. 3. No change to the drug regimen. 4. Intake and output are not accurate due to persistent urinary incontinence. Weights have been stable though so no need for additional diuretics at this time. 5. Xray the left wirst. Apply ice 10-15 minutes TID. If no fracture may benefit from an JEANCRALOS for support. Suspect sprain. Arthritis cream 2 clicks 3 times daily to the left wrist. Charges/Coding Visit Charges Inpatient E&M: 50851 Subs Hosp L1
--- NOTE | 2024-06-06 11:49 | RAD_ITS ---
PROCEDURE: LEFT WRIST MIN 3 VIEWS REASON FOR EXAM: Pain, swelling. TECHNIQUE: Four views of the left wrist COMPARISON: None. FINDINGS: No acute fracture or dislocation is identified. There are degenerative changes of the radiocarpal joint. There are degenerative changes of the 1st carpometacarpal joint and scaphoid trapezium joint. There is soft tissue swelling. RAD/Wrist min 3 Views IMPRESSION: 1. Soft tissue swelling with no acute osseous abnormality. 2. Degenerative changes. Reading Location: [facility]
[2024-06-06] MEDS: Ferrous Sulfate 325 MG Tablet PO (11:54)
--- NOTE | 2024-06-06 12:53 | CASEMGMT ---
Social Work IDT met with patient at friend at bedside, then son via conference call for Team meeting. Discussed patient's progress in PT/OT/ST/SN. Educated to Medicare DC audelia 06/10. First plan is [facility], pending beds. Second choice is [facility], also pending beds. SW to finalize DC plans and schedule cot transport, and complete 7000. SW to update pt and family once known. Plan: DC 06/10, SNF skilled Yahaira Lincoln TECHNICAL APPLICATIONS SPECIALIST BORING MACHINE SET UP OPERATOR
[2024-06-06] MEDS: Arthritis Pain Compound 60 CLICK TUBE TOPICAL ×2 (15:39→20:56)
[2024-06-06 17:24] VITALS: BP 121/67; PULSE 96; RESP 20; TEMP 37.3; O2SAT 94
[2024-06-06] MEDS: Atorvastatin Calcium 40 MG Tablet PO (20:55)
[2024-06-06] MEDS: Mirtazapine 15 MG Tablet 7.5 MG PO (20:56)
[2024-06-06 22:00] VITALS: RESP 16
[2024-06-07 06:00] VITALS: BP 140/56; PULSE 84; RESP 16; TEMP 37.2; O2SAT 97
[2024-06-07] MEDS: Levothyroxine 125 MCG Tablet PO (06:05)
[2024-06-07] MEDS: Arthritis Pain Compound 60 CLICK TUBE TOPICAL ×3 (06:16→20:45)
[2024-06-07] MEDS: oxyCODONE 5 MG Tablet PO ×2 (06:18→14:03)
[2024-06-07 06:28] LABS: Hematocrit 30.1 % (37-47); Hemoglobin 9.3 g/dL (12.0-15.0); Mean Corp Hgb Conc 30.9 g/dL (32-36); Mean Corpuscular Hgb 30.7 pg (27.0-32.0); Mean Corpuscular Volume 99.3 fL (81-99); Mean Platelet Vol. 12.4 fl (6.2-12.0); Platelet Count 241 K/mm3 (150-450); RBC Distribution Width CV 16.4 % (11.6-14.6); RBC Distribution Width SD 59.5 fl (35.1-43.9); Red Blood Count 3.03 M/mm3 (4.2-5.4); White Blood Count 7.8 K/mm3 (4.4-11.0)
[2024-06-07 06:39] LABS: Albumin, Serum 2.7 g/dL (3.4-4.8); BUN 43 mg/dL (4-19); BUN/Creat Ratio 24.2 RATIO (10-20); Calcium 8.4 mg/dL (7.6-11.0); Chloride 103 mmol/L (96-108); Creatinine, Serum 1.78 mg/dL (0.70-1.20); EST Glomerular Filtration Rate 28 (>60); Estimated Creatinine Clearance 26.74 ml/min (50-250); Glucose 89 mg/dL (70-99); Phosphorus 4.6 mg/dL (2.7-4.5); Potassium 3.9 mmol/L (3.3-5.1); Sodium Level 139 mmol/L (133-145)
[2024-06-07] MEDS: Lacosamide 100 MG Tablet PO ×2 (07:58→20:47)
[2024-06-07] MEDS: Carvedilol 3.125 MG TABLET PO ×2 (07:58→18:07)
[2024-06-07] MEDS: Pantoprazole Sodium 40 MG Tablet PO (07:58)
[2024-06-07] MEDS: Furosemide 40 MG Tablet PO (07:58)
[2024-06-07] MEDS: APIXABAN 5 MG TABLET PO ×2 (07:58→20:46)
[2024-06-07] MEDS: Senna/Docusate Sodium 1 Tablet 2 TABLET PO ×2 (07:58→20:46)
[2024-06-07] MEDS: Cholecalciferol (VIT D3) 25 MCG TABLET (1,000 UNITS) PO (07:58)
[2024-06-07 08:03] VITALS: BMI 44.2
--- NOTE | 2024-06-07 09:17 | PN_ITS ---
Subjective Subjective Afebrile VSS - Maintaining appropriate oxygen saturation on RA Oral intake - FOOD good FLUIDS good Discussed with nursing -Had hallucinations after Oxycodone last evening........she tolerates 5 mg Q AM without any adverse effects. I suspect the hallucinations have more to do with sundowning than with Oxy. Reviewed the THERAPY notes Medication list reviewed. Has been taking Oxycodone only 1-2 X's a day.......it is scheduled for 0700 to facilitate good participation performance in therapy. All lab was personally reviewed. White blood cell count is normal at 7.8. Hemoglobin is 9.3, up from 8.1 on 06/03/2024. Platelets are within normal limits. Sodium is 139 and the potassium is 3.9. The BUN is 43 and creatinine is 1.78, down from 2.07 on 06/03/2024. GFR is 28 which is consistent with stage IV chronic renal failure. Phosphorus is 4.6. Serum bicarb is normal at 25. I reviewed the radiology report. No fracture of the left wrist. She does have soft tissue swelling but no acute osseous abnormality. There are degenerative changes. Ting continues to complain of left wrist pain. I reviewed the results of the XRAY with her. She denies lightheadedness, SOB, CP, N/V/abd pain, dysuria and calf pain. Objective Data Objective Data Vital Signs: Vital Signs Temp Pulse Resp BP Pulse Ox O2 Del Method 98.9 F 84 16 140/56 H 97 Room Air 06/07/24 06:00 06/07/24 06:00 06/07/24 06:00 06/07/24 06:00 06/07/24 06:00 06/07/24 06:00 Oxygen Delivery Method Room Air Weight: 219 lb 2.232 oz Body Mass Index (BMI) 44.2 Intake & Output: Intake and Output for Last 24 Hours 06/05/24 06/06/24 06/07/24 23:59 23:59 23:59 Intake Total 1640 / 1740 2250 / 2250 240 / 240 Output Total 200 / 200 Balance 1640 / 1540 0 / 2050 240 / 240 Lab / Micro Data 06/07/24 05:18 06/07/24 05:18 Labs: Laboratory Results - last 24 hr 06/07/24 05:18: WBC 7.8, RBC 3.03 L, Hgb 9.3 L, Hct 30.1 L, MCV 99.3 H, MCH 30.7, MCHC 30.9 L, RDW Std Deviation 59.5 H, RDW Coeff of Parris 16.4 H, Plt Count 241, MPV 12.4 H, Sodium 139, Potassium 3.9, Chloride Direct 103, Carbon Dioxide 25.0, BUN 43 H, Creatinine 1.78 H, Estim Creat Clear Calc 26.74 L, Est GFR (MDRD) Non-Af 28 L, BUN/Creatinine Ratio 24.2 H, Glucose 89, Calcium 8.4, P hosphorus 4.6 H, Albumin 2.7 L Micro: Microbiology 05/20/24 00:20 Stool Stool Occult Blood (ALEC) - Final Occult Blood Positive Radiography Diagnostic Testing: Radiology Impression Wrist X-Ray 06/06/24 11:49 IMPRESSION: 1. Soft tissue swelling with no acute osseous abnormality. 2. Degenerative changes. Reading Location: [facility] Physical Exam Const alert, oriented x3 and no apparent distress Constitutional Narrative: Lying in bed when I entered the room. General Appearance: cooperative and well kempt; Negative for anxious or diaphoretic HEENT head/scalp atraumatic Eyes PERRL, EOMs intact bilaterally, conjunctivae normal and no scleral icterus Eyes Narrative: No discharge from the eyes and no mattering of the eyelashes. General Eye: normal appearance of both eyes Neck supple, No nodes and no carotid bruits General: trachea midline Chest Chest: symmetrical chest wall rise Resp normal respiratory effort and clear to auscultation bilaterally Resp Narrative: diminished throughout not tachypneic Effort and Inspection: able to speak in complete sentences Cardio regular rate and regular rhythm Cardio Narrative: no ectopy GI normal to inspection, nondistended, normoactive bowel sounds, soft to palpation and non-tender GI Narrative: Having regular BM's no CVA tenderness Narrative: Denies dysuria Bladder / Kidney Exam: No catheter in place Back/Spine Back/Spine Narrative: c/o back pain in the mid thoracic area with movement. The pain is located over the spine. Denies any recent falls. No XRAYS of the back on file in the EMR. there seems to bee some localised swelling over the spine in the mid thoracic area. Pain does not rediate. No erythema and no openings in the skin. Extremity no calf tenderness Extremity Narrative: Edema in the legs is stable and is better with compression. the Left wrist is less swollen but, still painful with flexion and extension. will continue with ice.elevation and GEN for support. General Extremity: edema bilateral lower extremity (at the ankles only) Details: trace; Negative for clubbing, cyanosis or mottling Skin General Skin Exam: dry skin Rashes: no rashes Hair: normal Neuro oriented x3, CN's II-XII intact bilaterally, moves all extremities and no focal motor deficits Neuro Narrative: Poor awareness of her degreee of generalized weakness and over estimates what she can do. Speech: speech normal Psych affect normal Psych Narrative: Does not seem anxious or depressed. Making good eye contact. Hard time focusing. Appearance: grossly normal and appropriate Attitude: calm and engaged Activity / Motor Behavior: appropriate eye contact Thought Content: No suicidality, No homicidality and No hallucination(s) Assessment & Plan Assessment/Plan (1) Debility: (2) Dysphagia: QUALIFIERS: Dysphagia type: oropharyngeal phase Qualified Code(s): R13.12 - Dysphagia, oropharyngeal phase (3) Generalized weakness: (4) Acute on chronic anemia: (5) Chronic kidney disease: QUALIFIERS: Chronic kidney disease stage: stage 3 (moderate) C hronic kidney disease stage 3 subtype: stage 3b (GFR 30-44) Qualified Code(s): N18.32 - Chronic kidney disease, stage 3b (6) Heme + stool: (7) Acute on chronic back pain: (8) Spinal osteophytosis: (9) Encephalopathy: QUALIFIERS: Encephalopathy type: unspecified encephalopathy Q ualified Code(s): G93.40 - Encephalopathy, unspecified (10) Urinary incontinence: QUALIFIERS: Urinary Incontinence type: unspecified incontinence Q ualified Code(s): R32 - Unspecified urinary incontinence (11) Left wrist pain: (12) Hyperphosphatemia: PLAN: Plan 1. Continue therapy 2. Add a phosphorus restriction to the current diet........ recheck phosphorus in a few days and if it is not less than 4.5 will likely need to add a phosphate binder 3. Continue Gen wrap, ice, elevation and arthritis cream to the left wrist for sprain 4. Potassium is better since we instituted the potassium restriction. Creat is down to 1.78 so maybe we do not need to restrict potassium if she maintains this improvement. 5. will recheck potassium and phosphorous and make a decision at that time whether or not to continue with restriction. She is not on an GEN or an ARB and she takes Lasix 40 mg daily. 6. Plan discharge to intermediate on Thursday for continued therapy prior to hopefully returning home. Charges/Coding Visit Charges Inpatient E&M: 59531 Subs Hosp L1
[2024-06-07] MEDS: Ferrous Sulfate 325 MG Tablet PO (12:12)
[2024-06-07 18:00] VITALS: BP 122/63; PULSE 89; RESP 17; TEMP 36.6; O2SAT 98
[2024-06-07] MEDS: Mirtazapine 15 MG Tablet 7.5 MG PO (19:46)
[2024-06-07] MEDS: Atorvastatin Calcium 40 MG Tablet PO (20:46)
[2024-06-07] MEDS: Acetaminophen 500 MG Tablet PO (20:53)
[2024-06-07 22:00] VITALS: RESP 16
[2024-06-08 06:00] VITALS: BP 107/49; PULSE 85; RESP 17; TEMP 36.5; O2SAT 96
[2024-06-08] MEDS: Levothyroxine 125 MCG Tablet PO (06:54)
[2024-06-08] MEDS: Arthritis Pain Compound 60 CLICK TUBE TOPICAL ×3 (06:54→22:13)
[2024-06-08] MEDS: oxyCODONE 5 MG Tablet PO ×2 (06:55→16:58)
[2024-06-08 07:41] VITALS: BMI 44.2
[2024-06-08] MEDS: Pantoprazole Sodium 40 MG Tablet PO (07:56)
[2024-06-08] MEDS: Cholecalciferol (VIT D3) 25 MCG TABLET (1,000 UNITS) PO (07:56)
[2024-06-08] MEDS: Senna/Docusate Sodium 1 Tablet 2 TABLET PO ×2 (07:56→22:13)
[2024-06-08] MEDS: Polyethylene Glycol 3350 17 GM PACKET PO (07:57)
[2024-06-08] MEDS: APIXABAN 5 MG TABLET PO ×2 (07:57→22:12)
[2024-06-08] MEDS: Furosemide 40 MG Tablet PO (07:57)
[2024-06-08] MEDS: Carvedilol 3.125 MG TABLET PO ×2 (07:57→16:55)
[2024-06-08] MEDS: Lacosamide 100 MG Tablet PO ×2 (09:18→22:12)
[2024-06-08] MEDS: Acetaminophen 500 MG Tablet PO (09:22)
[2024-06-08] MEDS: Ferrous Sulfate 325 MG Tablet PO (11:55)
--- NOTE | 2024-06-08 15:50 | CASEMGMT ---
Social Work SW followed up with [facility] on beds - they have an opening and can accept pt 06/10. SW updated [facility]. Yahaira Lincoln DEPARTMENT COORDINATOR BLENDING COORDINATOR
[2024-06-08 17:29] VITALS: BP 109/59; PULSE 72; RESP 16; TEMP 36.3; O2SAT 96
[2024-06-08] MEDS: Mirtazapine 15 MG Tablet 7.5 MG PO (19:51)
[2024-06-08 21:50] VITALS: PULSE 72; RESP 16; O2SAT 96
[2024-06-08] MEDS: Atorvastatin Calcium 40 MG Tablet PO (22:12)
[2024-06-09 05:00] VITALS: BP 124/56; PULSE 82; RESP 17; TEMP 36.6; O2SAT 97
[2024-06-09] MEDS: Levothyroxine 125 MCG Tablet PO (05:18)
[2024-06-09] MEDS: Arthritis Pain Compound 60 CLICK TUBE TOPICAL ×3 (05:18→22:08)
[2024-06-09] MEDS: oxyCODONE 5 MG Tablet PO ×2 (06:48→19:52)
[2024-06-09] MEDS: Pantoprazole Sodium 40 MG Tablet PO (07:53)
[2024-06-09] MEDS: Lacosamide 100 MG Tablet PO ×2 (07:53→22:12)
[2024-06-09] MEDS: Furosemide 40 MG Tablet PO ×2 (07:53→17:17)
[2024-06-09] MEDS: Polyethylene Glycol 3350 17 GM PACKET PO (07:53)
[2024-06-09] MEDS: APIXABAN 5 MG TABLET PO ×2 (07:53→22:09)
[2024-06-09] MEDS: Cholecalciferol (VIT D3) 25 MCG TABLET (1,000 UNITS) PO (07:53)
[2024-06-09] MEDS: Senna/Docusate Sodium 1 Tablet 2 TABLET PO (07:53)
[2024-06-09] MEDS: Carvedilol 3.125 MG TABLET PO ×2 (07:53→16:19)
--- NOTE | 2024-06-09 08:20 | PN_ITS ---
Subjective Subjective Afebrile VSS - Maintaining appropriate oxygen saturation on RA Oral intake - FOOD good FLUIDS fair to good Discussed with nursing - no problems that need addressed Reviewed the THERAPY notes Medication list reviewed. BMP is still pending. Denies lightheadedness, cephalgia, chest pain, shortness of breath, palpitations, nausea/vomiting/abdominal pain, diarrhea/constipation, dysuria and calf pain. Tells me the pain in her left wrist is improving and she has increased range of motion at the wrist. Still has some swelling. Continues to have midthoracic pain with certain movements but it is brief and she knows what precipitates it. She feels it is adequately managed at this time. Objective Data Objective Data Vital Signs: Vital Signs Temp Pulse Resp BP Pulse Ox O2 Del Method 97.8 F 82 17 124/56 H 97 Room Air 06/09/24 05:00 06/09/24 05:00 06/09/24 05:00 06/09/24 05:00 06/09/24 05:00 06/09/24 05:00 Oxygen Delivery Method Room Air Weight: 219 lb 2.232 oz Body Mass Index (BMI) 44.2 Intake & Output: Intake and Output for Last 24 Hours 06/07/24 06/08/24 06/09/24 23:59 23:59 23:59 Intake Total 1160 / 1160 1440 / 1440 75 / 75 Balance 1160 / 1160 1440 / 1440 75 / 75 Lab / Micro Data 06/07/24 05:18 06/10/24 07:04 Labs: Laboratory Results - last 24 hr 06/09/24 05:37: Phosphorus 5.0 H Micro: Microbiology 05/20/24 00:20 Stool Stool Occult Blood (ALEC) - Final Occult Blood Positive Physical Exam Const alert, oriented x3 and no apparent distress Constitutional Narrative: Lying in bed when I entered the room. HEENT Mouth: dry mucous membranes Resp normal respiratory effort and clear to auscultation bilaterally Resp Narrative: diminished throughout not tachypneic Effort and Inspection: able to speak in complete sentences Cardio regular rate and regular rhythm Cardio Narrative: Bradycardia resolved with decreasing the Coreg to 3.125 mg twice daily. No ectopy. Blood pressure is well-controlled GI normal to inspection, nondistended, normoactive bowel sounds, soft to palpation and non-tender GI Narrative: Having regular BM's Extremity no calf tenderness General Extremity: edema bilateral lower extremity (at the ankles only) Details: trace Skin General Skin Exam: dry skin Rashes: no rashes Neuro oriented x3, CN's II-XII intact bilaterally, moves all extremities and no focal motor deficits Psych affect normal Assessment & Plan Assessment/Plan (1) Debility: (2) Septic shock: (3) Encephalopathy: QUALIFIERS: Encephalopathy type: unspecified encephalopathy Q ualified Code(s): G93.40 - Encephalopathy, unspecified (4) Status epilepticus: (5) Seizure disorder: (6) Acute renal failure superimposed on stage 3b chronic kidney disease: QUALIFIERS: Acute renal failure type: unspecified Qualified Code(s): N17.9 - Acute kidney failure, unspecified; N18.32 - Chronic kidney disease, stage 3b (7) Dysphagia: QUALIFIERS: Dysphagia type: oropharyngeal phase Qualified Code(s): R13.12 - Dysphagia, oropharyngeal phase (8) Generalized weakness: (9) Acute on chronic anemia: (10) Chronic kidney disease: QUALIFIERS: Chronic kidney disease stage: stage 3 (moderate) C hronic kidney disease stage 3 subtype: stage 3b (GFR 30-44) Qualified Code(s): N18.32 - Chronic kidney disease, stage 3b (11) Heme + stool: (12) Acute on chronic back pain: (13) Spinal osteophytosis: (14) Urinary incontinence: QUALIFIERS: Urinary Incontinence type: unspecified incontinence Q ualified Code(s): R32 - Unspecified urinary incontinence (15) Left wrist pain: (16) Hyperphosphatemia: (17) Osteopenia: QUALIFIERS: Osteopenia location: multiple sites Qualified Code(s): M85.89 - Other specified disorders of bone density and structure, multiple sites (18) (HFpEF) heart failure with preserved ejection fraction: QUALIFIERS: Heart failure chronicity: chronic Qualified Code(s): I50.32 - Chronic diastolic (congestive) heart failure (19) Bradycardia: PLAN: Plan 1. Continue therapy 2. Plan discharge to [facility] for additional therapy prior to returning home. 3. Await the results of the BMP done this morning. Charges/Coding Visit Charges Inpatient E&M: 95633 Subs Hosp L1
[2024-06-09 08:24] LABS: Albumin, Serum 2.7 g/dL (3.4-4.8); Anion Gap 16 (5-15); BUN 55 mg/dL (4-19); BUN/Creat Ratio 25.7 RATIO (10-20); Calcium,Total 8.4 mg/dL (7.6-11.0); Carbon Dioxide 21.7 mmol/L (21.0-32.0); Chloride 103 mmol/L (98-108); Creatinine, Serum 2.14 mg/dL (0.70-1.20); EST Glomerular Filtration Rate 23 (>60); Estimated Creatinine Clearance 21.83 ml/min (50-250); Glucose 86 mg/dL (70-99); Potassium 4.1 mmol/L (3.3-5.1); Sodium Level 140 mmol/L (133-145)
--- NOTE | 2024-06-09 08:52 | CASEMGMT ---
Addendum entered by Yahaira Lincoln 06/10/24 11:01: Dr requested pt receive IV fluids d/t lab result prior to DC and to push back transport. SAMIR [facility]oned [facility] and rescheduled to 1500. [facility] updated and DC orders sent. 7000 completed. Original Note: Social Work Scheduled cot transport for 1300 through [facility]. 7000 started. SAMIR spoke with pt to update. Pt appreciative. Plan: DC 06/10 to [facility], skilled Yahaira Lincoln CONTROL ELECTRICIAN DIRECTOR EMBALMER
[2024-06-09] MEDS: Ferrous Sulfate 325 MG Tablet PO (12:09)
--- NOTE | 2024-06-09 16:40 | TREXTCAR_ITS ---
Diet Diet Order/Speech Therapy:
--- NOTE | 2024-06-09 16:40 | PCM.TXEXTCAR ---
Diet Diet Order/Speech Therapy: 05/23/24 10:32 Diet: Regular - General Food consistency:: Regular Liquid Consistency:: Regular/Thin Dietary Modifications:: Potassium Restricted Phosphorus Restricted Diet Comments: distant supervision, small sips NO CAFFEINE Routine Orders/Code Status Enema Type: Fleetz Enema Frequency: Daily PRN Suppository Type: Dulcolax 10mg Suppository Frequency: Daily PRN Routine Lab Work: - (CBC, BMP, Mag and phos on 06/13/24) Code Status: DNRCC-A (No intubation) DC O2, CPAP, BIPAP needs Home O2 Discharge instructions: No Wound(s) Right hip: Wound Type: Abrasion Suggestions for Active Care Times a day to sit in chair: 3 (up in chair with meals. ) Therapies Weight Bearing: Weight bearing as tolerated Extremity Affected:: Bilateral Lower (keep elevated when seated in a chair. ) Physical Therapy: Eval and Treat Occupational Therapy: Eval and Treat Speech Therapy: Eval and Treat Problem/Diagnosis (1) Debility: Status: Acute Code(s): R53.81 - Other malaise (2) Septic shock: Status: Acute Code(s): A41.9 - Sepsis, unspecified organism; R65.21 - Severe sepsis with septic shock Comment: due to E. Coli pyelonephritis. (3) Encephalopathy: Status: Acute Code(s): G93.40 - Encephalopathy, unspecified Plan: Much more alert at [place]. Has been working with ST daily for dysphagia and cognition. Most likely metabolic encephalopathy. (4) Status epilepticus: Status: Resolved Code(s): G40.901 - Epilepsy, unspecified, not intractable, with status epilepticus (5) Seizure disorder: Status: Chronic Code(s): G40.909 - Epilepsy, unspecified, not intractable, without status epilepticus Plan: Continue Vimpat. Will need follow up with neurology. (6) Acute renal failure superimposed on stage 3b chronic kidney disease: Status: Acute Code(s): N17.9 - Acute kidney failure, unspecified; N18.32 - Chronic kidney disease, stage 3b Plan: Required dialysis 2 times following admission to [facility]. Kidney function never returned back to baseline and she is now chronically stage 4. Will follow up with Dr. Albrecht. (7) Dysphagia: Status: Acute Code(s): R13.10 - Dysphagia, unspecified (8) Generalized weakness: Status: Acute Code(s): R53.1 - Weakness (9) Acute on chronic anemia: Status: Chronic Code(s): D64.9 - Anemia, unspecified (10) Chronic kidney disease: Status: Chronic Code(s): N18.9 - Chronic kidney disease, unspecified Plan: Prior to recent acute illness was mostly 3b. 4 at times. Now consistently in stage 4 and Creat has been increasing. Impossible to measure accurate I&O due to chronic urinary incontinence. She has been on Lasix 40 mg daily but, oral fluid intake is not always good and she is drinking caffeinated beverages which I have discouraged. Comment: Stage IIIb?4. Follows up with Dr. Albrecht. (11) Heme + stool: Status: Acute Code(s): R19.5 - Other fecal abnormalities Plan: Continue Protonix. HGB is stable and it was 9.3 on 06/07/24........upp from 8.1 on 06/03/24.....may be increased due to IV volume depletion. (12) Acute on chronic back pain: Status: Acute Code(s): M54.9 - Dorsalgia, unspecified; G89.29 - Other chronic pain Plan: Suspect due to prolonged immobility due to critical illness. Pain is primarily in the mid thoracic area and x-rays revealed no evidence of acute thoracic fracture/compression but she has multilevel disc space narrowing and spondylosis. Pain is adequately controlled with Oxycodone 5 mg Q aM and 5 mg p.o. every 8 hours as needed pain. Has been getting arthritis cream only to the left wrist for pain and swelling due to a sprain. The compounded arthritis cream will be discontinued at discharge from acute rehab and she will start 650 mg of acetaminophen 3 times daily. She has a spinal cord stimulator. (13) Spinal osteophytosis: Status: Chronic Code(s): M25.78 - Osteophyte, vertebrae (14) Urinary incontinence: Status: Chronic Code(s): R32 - Unspecified urinary incontinence (15) Left wrist pain: Status: Acute Code(s): M25.532 - Pain in left wrist Plan: Xrays negative for fracture/dislocation. X-ray shows degenerative changes of the radiocarpal joint, the first carpometacarpal joint and the scaphoid trapezium joint. Treated with elevation, ice, arthritis cream and JEANCARLOS wrap to support. Swelling is down and the ROM is improving at the wrist. (16) Hyperphosphatemia: Status: Acute Code(s): E83.39 - Other disorders of phosphorus metabolism Plan: Phos continued to increase with phosphorous restriction. Started on Calcium Acetate on 06/09/24. (17) Osteopenia: Status: Acute Code(s): M85.80 - Other specified disorders of bone density and structure, unspecified site (18) (HFpEF) heart failure with preserved ejection fraction: Status: Chronic Code(s): I50.30 - Unspecified diastolic (congestive) heart failure (19) Bradycardia: Status: Acute Code(s): R00.1 - Bradycardia, unspecified Comment: there is a drug interaction between Coreg and Vimpat and we had to decrease Coreg dose. HR is stable and WNL at DC.......had been dropping into the 50's consistently. Plan 1. Transfer to [facility] for additional skilled therapy prior to returning home. 2. Follow up with Dr. Albrecht within the next 10-14 days. 3. Follow up with neurology (Dr. Womack) for seizure disorder. Appt has been scheduled for 09/08/24 4. Follow up with cardiology and PCP. 5. BMP, CBC, MAG and phos on 06/13 6. Lasix changed to Q 48H. Would get daily weights and encourage increased fluid intake. Creat was elevated at 2.14 on 06/09/2024. It was 1.78 on 06/07/2024. Weight has decreased and I presume this is secondary to intravascular volume depletion. 7. May be able to decrease the potassium restriction going forward since the potassium has been stable at 3.9-4.1 recently. She is not on an JEANCARLOS or an ARB and is also not on a potassium supplement. 8. Continue the phosphate binder, calcium acetate, and recheck a phosphorus level in 7 to 10 days. 9. The Vimpat dose may need to be decreased IF any adverse reactions/side effects since the creat clearance is pretty consistently less than 30 now......she has not had any adverse reactions since on rehab. will defer to neurology. 10. Eliquis dose was decreased to 2.5 mg BID since the CREAT is consistently > 1.5 and she is > 82 years of age. 11. CREAT was increased at 2.`14 on 06/09/24. Lasix was put on ho,d and she was given 1 L of NS. Creat on 06/10/24 is 2.03. She was given an additional 1 liter of IV fluid prior to transport to [facility]. Would hold Lasix Thursday and Thursday and restart Thursday AM at 40 mg Q 48 hours. Allergies/Procedures Done in Hospital Allergies cefazolin (From Kefzol) Allergy (Severe, Verified 05/01/24 13:06) hives/difficulty swallowing ibuprofen Allergy (Unknown, Verified 05/01/24 13:06) Rash peanut Allergy (Verified 05/01/24 13:06) Anaphylaxis process peanut, can eat peanuts, not example peanut butter Sulfa (Sulfonamide Antibiotics) Allergy (Verified 05/01/24 13:06) Unknown sulfamethoxazole (From Bactrim) Allergy (Verified 05/01/24 13:06) Other trimethoprim (From Bactrim) Allergy (Verified 05/01/24 13:06) Other Type of Care/Length of Stay Estimated LOS: Convalescent Care Less Than 30 days Type of Care Needed: Skilled Rehab Potential: Good Prognosis: Good Additional Orders/Day of Discharge H&P will serve as current which was dated: 05/19/24 Day of Discharge: 06/10/24 Dietary and Speech Recommendations Dietitian Recommendations/Changes: Continue regular diet with potassium restriction and phosphorous restriction per MD, consistency/texture per [employer]. Discontinue 120ml ensure plus high protein TID with meals per pt request. Consult RD if changes occur in nutrition status. Follow Up Care Please follow up with your Primary Care Physician in: Dr. Capone Please Follow Up With: neurology Please Follow Up With: Norberto Jackson MD Please Follow Up With: Qian Albrecht MD Discharge Plan Admission Admit Date/Time: 05/18/24 19:11 Primary Reason for Your Visit: Debility due to septic shock, ARF requiring dialysis and status epilepticus Attending Provider: Ting Mehta Primary Care Provider: Miryam Wells Consulting Providers: Gerardo Rogers Instructions Additional Instructions / Restrictions: 1. Hold Lasix until Thursday AM and then start 40 mg Q48H. Get a BMP, phos, mag and cbc on Thursday06/13/24. Thanks Discharge Orders/Prescriptions Prescriptions: New furosemide 40 mg Tablet 40 mg PO Q48H Qty: 1 0RF acetaminophen 325 mg Tablet 650 mg PO TID Qty: 1 0RF carvedilol 3.125 mg Tablet 3.125 mg PO BIDCM Qty: 1 0RF bisacodyl 10 mg Suppository 10 mg AR X1 PRN (Reason: Constipation) Qty: 1 0RF calcium acetate(phosphat bind) 667 mg Capsule 667 mg PO TIDCM Qty: 1 0RF magnesium hydroxide 400 mg/5 mL Suspension 30 ml PO X1 PRN (Reason: Constipation) Qty: 30 0RF pantoprazole 40 mg Tablet,Delayed Release (Dr/Ec) 40 mg PO DAILY Qty: 1 0RF mirtazapine 15 mg Tablet 7.5 mg PO 2000 Qty: 1 0RF oxycodone 5 mg Tablet 5 mg PO Q8H PRN PRN (Reason: pain 5-10) 7 Days Qty: 28 0RF Rx Instructions: 1 tab every morning at 0700 and then 5 mg Q8H PRN pain 4-10 sennosides-docusate sodium [Stimulant Laxative Plus] 8.6-50 mg Tablet 2 tab PO BID Qty: 1 0RF Eliquis 2.5 mg tablet 2.5 mg PO BID Qty: 1 0RF Continued cholecalciferol (vitamin D3) 25 mcg (1,000 unit) capsule 25 mcg PO DAILY Mirena 20 mcg/24 hours (7 yrs) 52 mg intrauterine device 1 mcg intrauterine ONCE nitroglycerin 0.4 mg tablet, sublingual 0.4 mg sublingual Q5M PRN (Reason: chest pain) Qty: 30 1RF Rx Instructions: do not exceed 3 doses per episode fluorometholone 0.1 % drops,suspension 1 drp ophthalmic (eye) BID polyethylene glycol 3350 17 gram Powder In Packet 17 g PO DAILY Qty: 30 0RF atorvastatin 40 mg tablet 40 mg PO QHS lacosamide 100 mg tablet 100 mg PO BID ferrous sulfate 324 mg (65 mg iron) tablet,delayed release (DR/EC) 324 mg PO DAILY levothyroxine 125 mcg tablet 125 mcg PO DAILY Patient Comments: TAKE 1 TABLET BY MOUTH ONCE DAILY. TAKE ON EMPTY STOMACH. FOR THYROID. Discontinued [id number] 500-400-667 mg-mg-unit capsule 1 cap PO TID hydrocortisone-pramoxine 2.5-1 % (4g) cream 1 applic RC BID vitamin E mixed 400 unit capsule 400 unit PO DAILY pyridoxine (vitamin B6) [Vitamin B-6] 100 mg tablet 100 mg PO DAILY acetaminophen 500 mg tablet 500 mg PO Q24H PRN (Reason: pain) multivitamin Tablet 1 tab PO DAILY gabapentin 300 mg capsule 300 mg PO TID Patient Comments: TAKE ONE PILL BY MOUTH 3 TIMES PER DAY magnesium oxide 200 mg magnesium tablet 200 mg PO DAILY omeprazole 20 MG capsule 20 mg PO DAILY zinc acetate 25 mg (zinc) capsule 50 mg PO TID furosemide 20 mg tablet 40 mg PO DAILY ascorbic acid (vitamin C) 500 mg Tablet 1,000 mg PO DAILYCM@1200 Qty: 60 0RF Rx Instructions: Take this with the iron supplement at lunch daily aspirin 81 mg Tablet,Chewable 81 mg PO BID Qty: 38 0RF Rx Instructions: Take 1 twice a day with food until gone.....for prevention of blood clots. calcium carbonate 200 mg calcium (500 mg) Tablet,Chewable 500 mg PO TIDCM Qty: 90 0RF ferrous sulfate [FeroSul] 325 mg (65 mg iron) Tablet 325 mg PO DAILY@1200 Qty: 30 0RF Rx Instructions: Take this with vitamin C at Lunch every day hydrocortisone 2.5 % Ointment 1 applic topical BID PRN PRN (Reason: RASH/TOPICAL IRRITATION) Qty: 1 0RF Protocol: *Topical Application Instructions APPLICATION INSTRUCTIONS: apply to areas of itching oxycodone 5 mg Tablet 5 mg PO Q4H PRN PRN (Reason: pain 1-10) 7 Days Qty: 35 0RF sennosides-docusate sodium [Stimulant Laxative Plus] 8.6-50 mg Tablet 2 tab PO BID Qty: 120 0RF cyclobenzaprine 10 mg tablet 10 mg PO TID PRN (Reason: Muscle Spasm) Qty: 30 0RF Gemtesa 75 mg tablet 75 mg PO DAILY Patient Comments: TAKE 1 TABLET BY MOUTH EVERY DAY lisinopril 10 mg tablet 10 mg PO DAILY apixaban 5 mg tablet 5 mg PO BID carvedilol 6.25 mg tablet 6.25 mg PO BID Rx Instructions: must administer with a meal/food No Action doxycycline monohydrate 100 mg Capsule 100 mg PO BID Qty: 10 0RF zolpidem 5 mg tablet 5 mg PO QHS 10 Days Qty: 10 0RF Referrals / Follow Up: Norberto Jackson MD [Med Staff - Active Staff] - 08/04/24 2:30 pm Mehdi Womack MD [Non-Staff -Ordering Privileges] - 09/08/24 11:00 am (seizures ) Disposition Disposition (needs filled in before D/C Order can be placed): [facility] (3) Encephalopathy Qualifiers: Encephalopathy type: unspecified encephalopathy Qualified Code(s): G93.40 - Encephalopathy, unspecified (6) Acute renal failure superimposed on stage 3b chronic kidney disease Qualifiers: Acute renal failure type: unspecified Qualified Code(s): N17.9 - Acute kidney failure, unspecified; N18.32 - Chronic kidney disease, stage 3b (7) Dysphagia Qualifiers: Dysphagia type: oropharyngeal phase Qualified Code(s): R13.12 - Dysphagia, oropharyngeal phase (10) Chronic kidney disease Qualifiers: Chronic kidney disease stage: stage 3 (moderate) Chronic kidney disease stage 3 subtype: stage 3b (GFR 30-44) Qualified Code(s): N18.32 - Chronic kidney disease, stage 3b (14) Urinary incontinence Qualifiers: Urinary Incontinence type: unspecified incontinence Qualified Code(s): R32 - Unspecified urinary incontinence (17) Osteopenia Qualifiers: Osteopenia location: multiple sites Qualified Code(s): M85.89 - Other specified disorders of bone density and structure, multiple sites (18) (HFpEF) heart failure with preserved ejection fraction Qualifiers: Heart failure chronicity: chronic Qualified Code(s): I50.32 - Chronic diastolic (congestive) heart failure
[2024-06-09] MEDS: Calcium Acetate 667 MG Capsule PO (17:17)
[2024-06-09] MEDS: 0.9% Normal Saline (1000mL) 1,000 ML 100 ML IV (17:25)
[2024-06-09 17:56] VITALS: BP 111/54; PULSE 89; RESP 16; TEMP 36.9; O2SAT 97
[2024-06-09] MEDS: Mirtazapine 15 MG Tablet 7.5 MG PO (19:43)
[2024-06-09 19:57] VITALS: PULSE 89; RESP 16; O2SAT 97
[2024-06-09] MEDS: Atorvastatin Calcium 40 MG Tablet PO (22:07)
[2024-06-09] MEDS: Acetaminophen 325 MG Tablet 650 MG PO (22:08)
[2024-06-10 06:00] VITALS: BP 122/60; PULSE 74; RESP 16; TEMP 36.6; O2SAT 99
[2024-06-10] MEDS: oxyCODONE 5 MG Tablet PO ×2 (06:20→14:15)
[2024-06-10] MEDS: Acetaminophen 325 MG Tablet 650 MG PO (06:20)
[2024-06-10] MEDS: Arthritis Pain Compound 60 CLICK TUBE TOPICAL ×2 (06:20→14:17)
[2024-06-10] MEDS: Levothyroxine 125 MCG Tablet PO (06:20)
[2024-06-10] MEDS: Senna/Docusate Sodium 1 Tablet 2 TABLET PO (08:02)
[2024-06-10] MEDS: Pantoprazole Sodium 40 MG Tablet PO (08:02)
[2024-06-10] MEDS: Polyethylene Glycol 3350 17 GM PACKET PO (08:02)
[2024-06-10] MEDS: Carvedilol 3.125 MG TABLET PO (08:02)
[2024-06-10] MEDS: APIXABAN 5 MG TABLET PO (08:02)
[2024-06-10] MEDS: Calcium Acetate 667 MG Capsule PO ×2 (08:02→11:33)
[2024-06-10] MEDS: Cholecalciferol (VIT D3) 25 MCG TABLET (1,000 UNITS) PO (08:03)
[2024-06-10] MEDS: Lacosamide 100 MG Tablet PO (08:05)
[2024-06-10 08:26] LABS: Albumin, Serum 2.7 g/dL (3.4-4.8); Anion Gap 14 (5-15); BUN 53 mg/dL (4-19); BUN/Creat Ratio 26.1 RATIO (10-20); Calcium,Total 8.3 mg/dL (7.6-11.0); Carbon Dioxide 20.9 mmol/L (21.0-32.0); Chloride 107 mmol/L (98-108); Creatinine, Serum 2.03 mg/dL (0.70-1.20); EST Glomerular Filtration Rate 24 (>60); Estimated Creatinine Clearance 23.01 ml/min (50-250); Glucose 88 mg/dL (70-99); Phosphorus 5.2 mg/dL (2.7-4.5); Potassium 4.2 mmol/L (3.3-5.1); Sodium Level 142 mmol/L (133-145)
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
[2024-06-10] MEDS: 0.9% Normal Saline (1000mL) 1,000 ML 250 ML IV (10:58)
[2024-06-10] MEDS: Ferrous Sulfate 325 MG Tablet PO (11:33)
--- NOTE | 2024-06-10 16:27 | CHAPLAIN ---
Type of Pastoral Visit ___ Initial Visit ___ Follow-up Visit ___ On-call Visit _x__ General Patient Visit ___ Spiritual Assessment ___ Family Conference ___ Bereavement ___ Rapid Response ___ Code Blue ___ Other (describe below) Pastoral Care Referral From ___ Patient _x__ Family ___ Nurse ___ Physician ___ Physical Fitness Teacher ___ Chairman Ceo ___ Other (describe below) Sacrament/Intervention ___ Active listening ___ Anointing ___ Congregation ___ Bereavement ___ Communion ___ Jade exploration ___ ___ Life review _x__ Prayer ___ Reconciliation ___ Sacrament of Sick _x__ Supportive presence ___ Wedding ___ Other (describe below) Pastoral Comments during rounds in this unit and friend of this patient requested a brief visit and a prayer for her; pt is getting anxious due to being transferred to another facility and is concerned that transport team is late; pt is welcoming and explains her situation; pt welcomes prayer and supportive presence
[2024-06-10 17:29] VITALS: BP 122/60; PULSE 74; RESP 16; TEMP 36.6; O2SAT 99
== END 2024-06-10 17:31 | disposition skilled nursing facility (03) | DRG 689 ==
PROVIDERS: Admitting Provider Internal Medicine; PCP Nurse Practitioner Family; Visit Provider Internal Medicine
DX: N12 Tubulo-interstitial nephritis, not specified as acute or chronic (principal); J96.01 Acute respiratory failure with hypoxia; E87.20 Acidosis, unspecified; I13.0 Hypertensive heart and chronic kidney disease with heart failure and stage 1 through stage 4 chronic kidney disease, or unspecified chronic kidney disease; Z68.42 Body mass index [BMI] 45.0-49.9, adult; I50.32 Chronic diastolic (congestive) heart failure; G40.901 Epilepsy, unspecified, not intractable, with status epilepticus; I27.20 Pulmonary hypertension, unspecified; E83.39 Other disorders of phosphorus metabolism; N18.4 Chronic kidney disease, stage 4 (severe); J44.9 Chronic obstructive pulmonary disease, unspecified; E03.9 Hypothyroidism, unspecified; D53.9 Nutritional anemia, unspecified; N17.9 Acute kidney failure, unspecified; E87.5 Hyperkalemia; M48.02 Spinal stenosis, cervical region; K21.9 Gastro-esophageal reflux disease without esophagitis; I89.0 Lymphedema, not elsewhere classified; R15.9 Full incontinence of feces; M25.532 Pain in left wrist; R13.12 Dysphagia, oropharyngeal phase; M85.80 Other specified disorders of bone density and structure, unspecified site; Z79.82 Long term (current) use of aspirin; G89.29 Other chronic pain; Z79.890 Hormone replacement therapy; G47.00 Insomnia, unspecified; Z79.899 Other long term (current) drug therapy; Z86.718 Personal history of other venous thrombosis and embolism; Z98.84 Bariatric surgery status; B96.20 Unspecified Escherichia coli [E. coli] as the cause of diseases classified elsewhere; R32 Unspecified urinary incontinence; E66.813 Obesity, class 3
CPT/HCPCS: 36415; 72072; 73110; 74230; 80048; 80069; 80076; 81374; 82040; 82274; 83540; 83550; 83735; 84100; 85014; 85018; 85025; 85027; 85652; 86140; 86850; 86900; 86901; 92507; 92523; 92526; 92610; 92611; 97110; 97129; 97130; 97162; 97166; 97530; 97535; 97542; 97802; 97803; P9016; A4216

== ENCOUNTER 2024-07-29 14:51 | Emergency (ER) | payer MEDICARE, OTHER, SELFPAY ==
[2024-07-29 14:53] VITALS: BP 161/147; PULSE 70; RESP 18; TEMP 36.7; O2SAT 98; BMI 37.8
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
[2024-07-29] MEDS: oxyCODONE 5 MG Tablet PO (15:03)
[2024-07-29 15:05] VITALS: BP 185/82
--- NOTE | 2024-07-29 15:09 | RAD_ITS ---
EXAM: RIGHT TIBIA AND FIBULA CLINICAL HISTORY: INJURY. COMPARISON: 10/06/2023. TECHNIQUE: AP and lateral. FINDINGS: Bones: No fractures or other osseous abnormalities. Right total knee arthroplasty with long intramedullary components. Joints: No subluxations or dislocations. Soft tissues: Calcification posterior to the prosthesis most likely postoperative ossification. Soft tissue swelling anterior to the proximal and distal tibia. RAD/Tibia & Fibula 2 Views IMPRESSION: Right total knee arthroplasty. No acute osseous abnormalities. Soft tissue swelling. Reading Location: [facility]
[2024-07-29 15:43] VITALS: BP 177/76; PULSE 70; RESP 18; TEMP 36.7; O2SAT 99
--- NOTE | 2024-07-29 15:55 | ED.RN ---
Report called to [facility].
== END 2024-07-29 18:02 | disposition home or self-care (01) ==
PROVIDERS: Emergency Provider Emergency Medicine; PCP Nurse Practitioner Family; Visit Provider Emergency Medicine
DX: S80.11XA Contusion of right lower leg, initial encounter (principal); I11.0 Hypertensive heart disease with heart failure; I50.30 Unspecified diastolic (congestive) heart failure; Z79.01 Long term (current) use of anticoagulants; W22.09XA Striking against other stationary object, initial encounter; Z79.899 Other long term (current) drug therapy; E03.9 Hypothyroidism, unspecified; Z79.890 Hormone replacement therapy; K21.9 Gastro-esophageal reflux disease without esophagitis; G47.00 Insomnia, unspecified; Z96.653 Presence of artificial knee joint, bilateral; Z96.619 Presence of unspecified artificial shoulder joint
CPT/HCPCS: 73590; 99284

== ENCOUNTER 2024-09-01 14:45 | Outpatient (RCR) | payer MEDICARE, OTHER, SELFPAY ==
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
[2024-08-15 09:19] VITALS: BP 124/65; PULSE 85; RESP 14; TEMP 35.9
--- NOTE | 2024-08-16 08:17 | WC ---
Received a message from Dr Lomax requesting that the patient stay at [facility] for wound care/vac. Spoke to Kavya the nurse for this patient and told this info and she said ok and no further action was done for now. Also mentioned per Dr Lomax that Dr Jackson was in contact with him supporting this idea as well.
[2024-08-22 09:46] VITALS: BP 154/81; PULSE 60; RESP 20; TEMP 36.7
--- NOTE | 2024-08-22 11:46 | PCM.WC.PN ---
History of Present Illness Date of Service: 08/22/24 History of Wound: Ting Vega is a delightful 84-year-old female who presents today as a referral from her transport manager for a right lower extremity hematoma that occurred when her right anterior lateral leg accidentally hit an open car door on 29 July 2024. The area filled with blood beneath the skin and the overlying skin slowly demarcated and became necrotic over the past several days. The initial treatment by the emergency department appears to be that they placed compression to prevent the hematoma from expanding with the hope that it would resorb. Today in clinic she denies having any fevers or chills. She reports that she is not currently on any blood thinner (although she was on Eliquis in the past, and it does set her med list that she is on apixaban 2.5 mg twice daily) or antiplatelet agents at this time. She is not a smoker. Patient became acutely ill in April 2024 earlier this year from the flu and was hospitalized and intubated in the ICU. She has been recovering at a detention facility near [facility] ever since. She was doing well overall from a respiratory standpoint, and is attempting to regain her strength and ambulate more. She is ambulatory at baseline. She is not currently on any oxygen. Of note she has a previous history of a DVT PE. X-ray at the time of her injury from the emergency department demonstrated a total knee arthroplasty on the right but no acute osseous abnormalities. Patient is not having any acute bony pain at this time in the area of injury. 15 Aug 2024: Doing well overall and endorses good dressing changes with the twice daily Dakin's soaked Kerlix. No fevers or chills. Subjective Subjective Current encounter, 22 Aug 2024: Doing well overall and endorses good dressing changes at the longterm. She is not interested in staying at the longterm while the VAC therapy is in place and would like a home wound VAC. He understands the risk benefits and alternatives (all discussed with her today at this appointment) to discharge while she has high-level wound care requirements. Objective Data Objective Data Vital Signs: Vital Signs Temp Pulse Resp BP 98.1 F 60 20 H 154/81 H 08/22/24 09:46 08/22/24 09:46 08/22/24 09:46 08/22/24 09:46 Charges/Coding Procedures Integumentary 111xxx-113xx: [id number] [place] subq tissue 20 sq cm/< Physical Exam Narrative Right lower extremity examination: Large 7.5 x 5 cm (and 0.5 cm deep) wound from previous hematoma I&D. No surrounding induration or signs of systemic infection. There are no other fluid collections. No crepitus. There is granulation over the anterior compartment Compartments of the leg are soft Motor: 5+ dorsiflexion and plantarflexion. Sensory exam: Sensation to light touch intact on the foot and ankle Vascular exam: 2+ dorsalis pedis and posterior tibial pulses Debridement Note Debridement Note Wound debrided: Right leg wound Laterality: Right Wound Grade/Stage: Stage III Type of Debridement: Excisional debridement Depth: in the subcutaneous layer Percentage of wound debrided: 100 Instrument Used: 7mm curette Tissue Removed: Necrotic fibrinous exudate and debris at the level of the fat Severity: Fat Layer Exposed Amount of bleeding with debridement: Moderate Bleeding Controlled with: Compression and gauze Patient tolerated procedure: Patient tolerated procedure well Post-Debridement Measurements and Additional Note: Post-Debridement Measurements/Treatment - Nurse 1 - General Ulcer Assessment Start: 08/15/24 09:19 Freq: Status: Active Protocol: [email or web address].[email or web address] Activity Type Activity Date Activity User E-sign Co-sign Detail Recorded Client Recorded Date Recorded By Document 08/15/24 09:19 ML [id number] 08/15/24 09:22 ML Document 08/22/24 09:46 DL [id number] 08/22/24 09:56 DL 08/15/24 08/22/24 09:19 09:46 - Today's Visit Information Type of service Follow-up Visit Follow-up Visit (Physician/VOCATIONAL AIDE (Physician/VOCATIONAL AIDE ) ) Arrival Mode Wheelchair Ambulatory, Walker Transfer Assistance None None Patient Identification Verified (Name & Yes Yes ) Patient Requires Transmission-Based No No Precautions Vital Signs Temperature (97.8 F-99.1 F) 96.6 F L 98.1 F Temperature Source Temporal Temporal Pulse Rate (60-100) 85 60 Pulse Location Monitor Monitor Respiratory Rate (12-18) 14 20 H Respiratory rate source Observation Observation Blood Pressure (90/60-120/80) 124/65 H 154/81 H Blood Pressure Mean (mm Hg) 84 105 Source Monitor Monitor Position Sitting Blood Pressure Location Right Forearm History Since Last Visit- (Skip if this is Patient's initial visit) Have you changed medications since your No No last visit? Any new allergies or adverse reactions No No Had a fall/change in ADL's that may No No increase risk of falls Signs or symptoms of abuse and/or No No neglect since last visit Have you been in the hospital since your No No last visit? Has dressing in place as prescribed Yes Yes Has compression in place as prescribed N/A Yes Has offloadiing in place as prescribed N/A Yes Experienced any changes in pain level or No No management Pain Scale: 0-10 Numeric Is Patient Pain Free? Yes Yes WC - Nurse 1 - General Ulcer Measurement Start: 08/15/24 09:19 Freq: Status: Active Protocol: Activity Type Activity Date Activity User E-sign Co-sign Detail Recorded Client Recorded Date Recorded By Document 08/15/24 09:19 ML [id number] 08/15/24 09:22 ML Edit Result 08/15/24 09:19 ML (1) [id number] 08/15/24 09:26 ML Document 08/22/24 09:46 DL [id number] 08/22/24 09:56 DL (1) RLE - Slough/Fibrin => Yes - Necrosis Amt => Medium (34-66%) - Necrotic Tissue Type => Eschar - Texture (Laura-wound Skin Appearance) => Assessed - Moisture (Laura-wound Skin Appearance) => Assessed - Temperature (Laura-wound Skin => No Abnormality (Pt Appearance) => Warm) - Tenderness on Palpation (Laura-wound => Yes Skin Appearance) - Ulcer Cleansing => Soap and Water - Foul Odor after Cleansing => No - Anesthetic Used => 5% Lidocaine Gel 08/15/24 08/22/24 09:19 09:46 Wound Center Nurse 1 RLE -Current Size (cm) - Length 6 4.8 -Current Size (cm) - Width 8 7.8 -Current Size (cm) - Depth 0.6 0.3 -Total Square Cm 48 37.44 -Exudate Amt Medium -Exudate Type Sanguineous -Wound Margin Distinct, Outline Attached -Granulation Amt Large (67-100%) -Granulation Quality Red -Slough/Fibrin Yes -Necrosis Amt Medium (34-66%) None Present (0 %) -Necrotic Tissue Type Eschar -Structure Exposed N/A -Texture (Laura-wound Skin Appearance) Assessed Scarring -Moisture (Laura-wound Skin Appearance) Assessed No Abnormality -Color (Laura-wound Skin Appearance) No Abnormality -Temperature (Laura-wound Skin No Abnormality No Abnormality Appearance) (Pt Warm) (Pt Warm) -Tenderness on Palpation (Laura-wound Yes No Skin Appearance) -Ulcer Cleansing Soap and Water Soap and Water -Foul Odor after Cleansing No No -Anesthetic Used 5% Lidocaine 5% Lidocaine Gel Gel Right Calf (cm) 46 Right Ankle (cm) 27.2 WC - Nurse 2 - General Ulcer CM Notes Start: 08/15/24 09:19 Freq: Status: Active Protocol: Activity Type Activity Date Activity User E-sign Co-sign Detail Recorded Client Recorded Date Recorded By Document 08/15/24 09:26 [facility] [id number] 08/15/24 09:35 [facility] Document 08/22/24 10:35 [facility] [id number] 08/22/24 10:48 [facility] 08/15/24 08/22/24 09:26 10:35 Wound Center Nurse 2 RLE -Time 09:27 10:37 -Correct Patient Yes Yes -Correct Side, Site, Position Yes Yes -Correct Procedure Yes Yes -Procedure Performed Yes Yes -Type of Procedure Debridement Debridement -Clinical Debridement Muscle / Fascia Subcutaneous -Tissue Removed Muscle,Fascia Subcutaneous -Post Debridement (cm) - Length 8 5 -Post Debridement (cm) - Width 5 7.5 -Post Debridement (cm) - Depth 0.5 -Total Square (Post) (cm) 40 37.5 -Area of Debridement (cm) - Length 8 5 -Area of Debridement (cm) - Width 5 7.5 -Total Square (Area) (cm) 40 37.5 -Tunneling No No -Undermining/Tunneling No No -Circular Undermining No No -Wound/Ulcer Outcome Not Healed Not Healed -Ulcer Cleansing Rinsed/ Rinsed/ Irrigated with Irrigated with Saline Saline -Foul Odor after Cleansing No No -Bioengineered Tissue No No -Injectable Lidocaine w/ Epi (%) 1 -Injectable Lidocaine w/ Epi (mls) 10 -Bleeding Controlled with Pressure Pressure -Treatment Response Procedure Procedure Tolerated Well Tolerated Well -Debridement - Subq, 1st 20sq cm Yes -Debridement - Muscle / Fascia, 1st Yes 20sq cm -Debridement, Muscle/Fascia, ea addt'l 1 20sq cm or part thereof Pain Scale: 0-10 Numeric Is Patient Pain Free? Yes Yes - Nurse 3 - General Ulcer D/C NN Start: 08/15/24 09:19 Freq: Status: Active Protocol: Activity Type Activity Date Activity User E-sign Co-sign Detail Recorded Client Recorded Date Recorded By Document 08/15/24 09:53 DL [id number] 08/15/24 09:54 DL Document 08/22/24 11:11 JF [id number] 08/22/24 11:11 JF Edit Result 08/22/24 11:11 JF (1) [id number] 08/22/24 11:23 JF (1) RLE - Setting (mmHg) => 125 - Negative Pressure is => Continuous 08/15/24 08/22/24 09:53 11:11 Wound Care Center Nurse 3 RLE -Ulcer Cleansing Soap and Water Rinsed/ Irrigated with Saline -Foul Odor after Cleansing No No -NPWT Application Charge NPWT & Debridement (nc ) -Setting (mmHg) 125 -Negative Pressure is Continuous -Other Dressing DAKINS -Primary Dressing Covered/Secured with Dry Gauze & Roll Gauze, Secured with Tape -Other Covering ABD/GEN RLE -Compression Wrap Gen Wrap Treatment Response Procedure Tolerated Well Pain Scale: 0-10 Numeric Is Patient Pain Free? 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 There is now granulation tissue over the muscle. Ready for skin grafting. I talked the patient about the risks, benefits, and alternatives to skin grafting. We talked about the risk of skin graft failure, and need for debridement and continued wound care. She would like to proceed with skin graft versus doing continue dressing changes and wound care modalities (discussed TheraSkin and other dermal substitutes and continued wound VAC therapy, and she would like to do skin graft as this would get her potentially healed quicker). I talked to her also about the general risks of surgery, including bleeding, infection, damage to surrounding structures, poor scaring, surgical site dehiscence and wound formation, need for wound care, need for repeat operations, failure to obtain the desired result, DVT/PE, and the risks of anesthesia including , including stroke (from low blood pressure/ischemia or clot). The benefits and alternatives of this surgery were also discussed. All of their questions were answered, and they agreed to proceed with surgery. Plan for wound VAC 3 times per week VAC changes, and okay for home wound VAC. VAC should be changed 3 times per week (if discharged from longterm will need home health 3 times per week for 3 times per week VAC changes) until there is a skin graft, at which time the skin graft VAC will remain for 1 week (will not be changed after the skin graft). Patient will continue to be seen weekly at the wound care center. Discussed signs and symptoms of infection and strict return precautions. Patient happy with the plan PLAN: Plan CPT codes for insurance prior authorization are as follows: [id number], [id number]
[2024-09-01 14:39] VITALS: BP 147/68; PULSE 75; RESP 18; TEMP 36
--- NOTE | 2024-09-01 15:12 | PCM.WC.PN ---
History of Present Illness Date of Service: 09/01/24 History of Wound: Ting Vega is a delightful 84-year-old female who presents today as a referral from her floor representative for a right lower extremity hematoma that occurred when her right anterior lateral leg accidentally hit an open car door on 29 July 2024. The area filled with blood beneath the skin and the overlying skin slowly demarcated and became necrotic over the past several days. The initial treatment by the emergency department appears to be that they placed compression to prevent the hematoma from expanding with the hope that it would resorb. Today in clinic she denies having any fevers or chills. She reports that she is not currently on any blood thinner (although she was on Eliquis in the past, and it does set her med list that she is on apixaban 2.5 mg twice daily) or antiplatelet agents at this time. She is not a smoker. Patient became acutely ill in April 2024 earlier this year from the flu and was hospitalized and intubated in the ICU. [facility] ever since. She was doing well overall from a respiratory standpoint, and is attempting to regain her strength and ambulate more. She is ambulatory at baseline. She is not currently on any oxygen. Of note she has a previous history of a DVT PE. X-ray at the time of her injury from the emergency department demonstrated a total knee arthroplasty on the right but no acute osseous abnormalities. Patient is not having any acute bony pain at this time in the area of injury. 15 Aug 2024: Doing well overall and endorses good dressing changes with the twice daily Dakin's soaked Kerlix. No fevers or chills. Subjective Subjective 22 Aug 2024: Doing well overall and endorses good dressing changes at the care home. She is not interested in staying at the care home while the VAC therapy is in place and would like a home wound VAC. He understands the risk benefits and alternatives (all discussed with her today at this appointment) to discharge while she has high-level wound care requirements. Current encounter, 01 Sep 2024: Doing well overall. Endorses excellent VAC changes. Objective Data Objective Data Vital Signs: Vital Signs Temp Pulse Resp BP 96.8 F L 75 18 147/68 H 09/01/24 14:39 09/01/24 14:39 09/01/24 14:39 09/01/24 14:39 Charges/Coding Visit Charges Office Visits / Consults: 61797 OV L3 Est 20min Physical Exam Narrative Right lower extremity examination: Large 7 x 5 cm (and 0.5 cm deep) wound from previous hematoma I&D. No surrounding induration or signs of systemic infection. There are no other fluid collections. No crepitus. There is granulation over the anterior compartment Compartments of the leg are soft Motor: 5+ dorsiflexion and plantarflexion. Sensory exam: Sensation to light touch intact on the foot and ankle Vascular exam: 2+ dorsalis pedis and posterior tibial pulses Debridement Note Debridement Note No debridement was completed: No debridement was completed today Post-Debridement Measurements and Additional Note: Post-Debridement Measurements/Treatment - Nurse 1 - General Ulcer Assessment Start: 08/15/24 09:19 Freq: Status: Active Protocol: WC.LOWEXT Activity Type Activity Date Activity User E-sign Co-sign Detail Recorded Client Recorded Date Recorded By Document 08/15/24 09:19 ML [id number] 08/15/24 09:22 ML Document 08/22/24 09:46 DL [id number] 08/22/24 09:56 DL Document 09/01/24 14:39 [id number] 09/01/24 14:49 08/15/24 08/22/24 09/01/24 09:19 09:46 14:39 - Today's Visit Information Type of service Follow-up Visit Follow-up Visit Follow-up Visit (Physician/DEVELOPMENT CHEMIST (Physician/DEVELOPMENT CHEMIST (Physician/DEVELOPMENT CHEMIST ) ) ) Arrival Mode Wheelchair Ambulatory, Ambulatory, Walker Walker Transfer Assistance None None Patient Identification Verified (Name & Yes Yes Yes ) Patient Requires Transmission-Based No No No Precautions Vital Signs Temperature (97.8 F-99.1 F) 96.6 F L 98.1 F 96.8 F L Temperature Source Temporal Temporal Temporal Pulse Rate (60-100) 85 60 75 Pulse Location Monitor Monitor Monitor Respiratory Rate (12-18) 14 20 H 18 Respiratory rate source Observation Observation Observation Blood Pressure (90/60-120/80) 124/65 H 154/81 H 147/68 H Blood Pressure Mean (mm Hg) 84 105 94 Source Monitor Monitor Monitor Position Sitting Sitting Blood Pressure Location Right Forearm Right Forearm History Since Last Visit- (Skip if this is Patient's initial visit) Have you changed medications since your No No No last visit? Any new allergies or adverse reactions No No No Had a fall/change in ADL's that may No No No increase risk of falls Signs or symptoms of abuse and/or No No No neglect since last visit Have you been in the hospital since your No No Yes last visit? Has dressing in place as prescribed Yes Yes Yes Has compression in place as prescribed N/A Yes Yes Has offloadiing in place as prescribed N/A Yes N/A Experienced any changes in pain level or No No No management Left Footwear Regular Shoe Right Footwear Regular Shoe Pain Scale: 0-10 Numeric Is Patient Pain Free? Yes Yes Yes WC - Nurse 1 - General Ulcer Measurement Start: 08/15/24 09:19 Freq: Status: Active Protocol: Activity Type Activity Date Activity User E-sign Co-sign Detail Recorded Client Recorded Date Recorded By Document 08/15/24 09:19 ML [id number] 08/15/24 09:22 ML Edit Result 08/15/24 09:19 ML (1) [id number] 08/15/24 09:26 ML Document 08/22/24 09:46 DL [id number] 08/22/24 09:56 DL Document 09/01/24 14:39 JF [id number] 09/01/24 14:49 JF (1) RLE - Slough/Fibrin => Yes - Necrosis Amt => Medium (34-66%) - Necrotic Tissue Type => Eschar - Texture (Laura-wound Skin Appearance) => Assessed - Moisture (Laura-wound Skin Appearance) => Assessed - Temperature (Laura-wound Skin => No Abnormality (Pt Appearance) => Warm) - Tenderness on Palpation (Laura-wound => Yes Skin Appearance) - Ulcer Cleansing => Soap and Water - Foul Odor after Cleansing => No - Anesthetic Used => 5% Lidocaine Gel 08/15/24 08/22/24 09/01/24 09:19 09:46 14:39 Wound Center Nurse 1 RLE -Combined with other wound No -Current Size (cm) - Length 6 4.8 4.8 -Current Size (cm) - Width 8 7.8 7.4 -Current Size (cm) - Depth 0.6 0.3 0.1 -Total Square Cm 48 37.44 35.52 -Photo Taken Yes -Epithelialization Medium 34-66% -Tunneling No -Undermining/Tunneling No -Circular Undermining No -Exudate Amt Medium Medium -Exudate Type Sanguineous Serosanguineous -Wound Margin Distinct, Flat & Intact Outline Attached -Granulation Amt Large (67-100%) Large (67-100%) -Granulation Quality Red Red -Slough/Fibrin Yes Yes -Necrosis Amt Medium (34-66%) None Present (0 Small (1-33%) %) -Necrotic Tissue Type Eschar Adherent Slough -Structure Exposed N/A N/A -Texture (Laura-wound Skin Appearance) Assessed Scarring Assessed, Localized Edema -Moisture (Laura-wound Skin Appearance) Assessed No Abnormality Assessed,Dry/ Scaly -Color (Laura-wound Skin Appearance) No Abnormality Assessed -Temperature (Laura-wound Skin No Abnormality No Abnormality No Abnormality Appearance) (Pt Warm) (Pt Warm) (Pt Warm) -Tenderness on Palpation (Laura-wound Yes No No Skin Appearance) -Ulcer Cleansing Soap and Water Soap and Water Soap and Water -Foul Odor after Cleansing No No No -Anesthetic Used 5% Lidocaine 5% Lidocaine 5% Lidocaine Gel Gel Gel Lower Limb Edema Present Yes Right Calf (cm) 46 47.0 Right Ankle (cm) 27.2 26.5 WC - Nurse 2 - General Ulcer CM Notes Start: 08/15/24 09:19 Freq: Status: Active Protocol: Activity Type Activity Date Activity User E-sign Co-sign Detail Recorded Client Recorded Date Recorded By Document 08/15/24 09:26 BMF [id number] 08/15/24 09:35 BMF Document 08/22/24 10:35 BMF [id number] 08/22/24 10:48 BM Edit Result 08/22/24 10:35 BMF (1) [id number] 08/31/24 08:41 BMF Document 09/01/24 14:59 DS [id number] 09/01/24 15:02 DS (1) RLE - Debridement, SubQ, ea addt'l 20sq cm => 1 or part thereof 08/15/24 08/22/24 09/01/24 09:26 10:35 14:59 Wound Center Nurse 2 RLE -Time 09: 10:37 14:59 -Correct Patient Yes Yes Yes -Correct Side, Site, Position Yes Yes Yes -Correct Procedure Yes Yes -Procedure Performed Yes Yes No -Type of Procedure Debridement Debridement -Clinical Debridement Muscle / Fascia Subcutaneous -Tissue Removed Muscle,Fascia Subcutaneous -Post Debridement (cm) - Length 8 5 5.0 -Post Debridement (cm) - Width 5 7.5 7.0 -Post Debridement (cm) - Depth 0.5 0.2 -Total Square (Post) (cm) 40 37.5 35.00 -Area of Debridement (cm) - Length 8 5 5.0 -Area of Debridement (cm) - Width 5 7.5 7.0 -Total Square (Area) (cm) 40 37.5 35.00 -Tunneling No No No -Undermining/Tunneling No No No -Circular Undermining No No No -Wound/Ulcer Outcome Not Healed Not Healed Not Healed -Ulcer Cleansing Rinsed/ Rinsed/ Irrigated with Irrigated with Saline Saline -Foul Odor after Cleansing No No -Bioengineered Tissue No No -Injectable Lidocaine w/ Epi (%) 1 -Injectable Lidocaine w/ Epi (mls) 10 -Bleeding Controlled with Pressure Pressure -Treatment Response Procedure Procedure Tolerated Well Tolerated Well -Debridement - Subq, 1st 20sq cm Yes -Debridement, SubQ, ea addt'l 20sq cm 1 or part thereof -Debridement - Muscle / Fascia, 1st Yes 20sq cm -Debridement, Muscle/Fascia, ea addt'l 1 20sq cm or part thereof Pain Scale: 0-10 Numeric Is Patient Pain Free? Yes Yes Yes WC - Nurse 3 - General Ulcer D/C NN Start: 08/15/24 09:19 Freq: Status: Active Protocol: Activity Type Activity Date Activity User E-sign Co-sign Detail Recorded Client Recorded Date Recorded By Document 08/15/24 09:53 DL [id number] 08/15/24 09:54 DL Document 08/22/24 11:11 JF [id number] 08/22/24 11:11 JF Edit Result 08/22/24 11:11 JF (1) [id number] 08/22/24 11:23 JF (1) RLE - Setting (mmHg) => 125 - Negative Pressure is => Continuous 08/15/24 08/22/24 09:53 11:11 Wound Care Center Nurse 3 RLE -Ulcer Cleansing Soap and Water Rinsed/ Irrigated with Saline -Foul Odor after Cleansing No No -NPWT Application Charge NPWT & Debridement (nc ) -Setting (mmHg) 125 -Negative Pressure is Continuous -Other Dressing DAKINS -Primary Dressing Covered/Secured with Dry Gauze & Roll Gauze, Secured with Tape -Other Covering ABD/GEN RLE -Compression Wrap Gen Wrap Treatment Response Procedure Tolerated Well Pain Scale: 0-10 Numeric Is Patient Pain Free? Yes Yes WC - Visit Discharge Discharge Condition Stable Stable Ambulatory Status Ambulatory Walker Transportation Private Auto Private Auto Accompanied by friend Medication Reconcilliation completed & Yes provided to patient/care provider Clinical Summary of Care Provided Yes Facility Type [facility] Care Facility Orders Sent Yes Assessment/Plan Assessment/Plan (1) Wound of right lower extremity: CODE(S): S81.801A - Unspecified open wound, right lower leg, initial encounter PLAN: Continues to make significant improvement, especially with the wound VAC. There is now granulation tissue over the muscle. Ready for skin grafting. I reiterated the below risks with her today at our appointment and she would like to proceed with skin grafting: I talked the patient about the risks, benefits, and alternatives to skin grafting. We talked about the risk of skin graft failure, and need for debridement and continued wound care. She would like to proceed with skin graft versus doing continue dressing changes and wound care modalities (discussed TheraSkin and other dermal substitutes and continued wound VAC therapy, and she would like to do skin graft as this would get her potentially healed quicker). I talked to her also about the general risks of surgery, including bleeding, infection, damage to surrounding structures, poor scaring, surgical site dehiscence and wound formation, need for wound care, need for repeat operations, failure to obtain the desired result, DVT/PE, and the risks of anesthesia including , including stroke (from low blood pressure/ischemia or clot). The benefits and alternatives of this surgery were also discussed. All of their questions were answered, and they agreed to proceed with surgery. Plan for wound VAC 3 times per week VAC changes, and okay for home wound VAC. VAC should be changed 3 times per week (if discharged from care home will need home health 3 times per week for 3 times per week VAC changes) until there is a skin graft, at which time the skin graft VAC will remain for 1 week (will not be changed after the skin graft). Patient will continue to be seen weekly at the wound care center. Discussed signs and symptoms of infection and strict return precautions. Patient happy with the plan PLAN: Plan CPT codes for insurance prior authorization are as follows: [id number], [id number]
--- NOTE | 2024-09-02 13:00 | WC ---
PHOTO 09/01/24 MARLENE
== END 2024-09-03 23:59 | disposition home or self-care (01) ==
LOC: WC 14:45
PROVIDERS: PCP Nurse Practitioner Family; Referring Provider Surgery Plastic and Reconstructive Surgery; Visit Provider Surgery Plastic and Reconstructive Surgery
DX: S81.801A Unspecified open wound, right lower leg, initial encounter (principal); I11.0 Hypertensive heart disease with heart failure; J44.9 Chronic obstructive pulmonary disease, unspecified; S80.11XS Contusion of right lower leg, sequela; W22.8XXS Striking against or struck by other objects, sequela; G47.00 Insomnia, unspecified; G47.33 Obstructive sleep apnea (adult) (pediatric); K21.9 Gastro-esophageal reflux disease without esophagitis; Z79.01 Long term (current) use of anticoagulants; Z79.890 Hormone replacement therapy; Z79.899 Other long term (current) drug therapy; Z86.718 Personal history of other venous thrombosis and embolism; Z86.711 Personal history of pulmonary embolism; Z98.84 Bariatric surgery status
CPT/HCPCS: 11042; 11043; 11045; 11046; 97605; 99213; 99214; G0463

== ENCOUNTER 2024-09-06 07:22 | Day surgery (SDC) | payer MEDICARE, OTHER, SELFPAY ==
--- NOTE | 2024-09-02 14:04 | PAT.ANE_ITS ---
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 When Was Last Pacemaker Check QUESTION #4 FULL TEXT: You/Your Family Experience fever (hyperthermia) with Anesthesia Last Oral Intake Last Oral intake: Last Oral Intake NPO since Meds taken in AM with sips of water? 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 Female Yes 09/02/24 11:04 HX of Motion Sickness No 09/02/24 11:04 HX of N/V After Surgery No 09/02/24 11:04 Non-Smoker Yes 09/02/24 11:04 Duration of Surgery greater Yes 09/02/24 11:04 than 60 minutes Number of Risk Factors 3 09/02/24 11:04 PONV Score Moderate Risk 09/02/24 11:04 Height & Weight Height & Weight: Anesthesia: Height & Weight Height 5 ft 1 in 07/29/24 14:53 Respiratory Assessment Respiratory Assessment - pile driving superintendent: Respiratory Tract Infection Hx - pile driving superintendent Hx Respiratory Tract Infection No 09/02/24 11:04 STOP Sleep Apnea STOP Sleep Apnea - pile driving superintendent: STOP Sleep Apnea - pile driving superintendent Hx Hypertension Yes: CONTROLLED WITH MED 09/02/24 11:04 Hx Sleep Apnea Yes 09/02/24 11:04 CPAP Yes: DOESNT WEAR SINCE 09/02/24 11:04 GASTRIC BYPASS BIPAP No 09/02/24 11:04 Do you snore loudly (louder than talking or can be heard Do you often feel tired/ fatigued/ sleepy during daytime? Has anyone observed you stop breathing during sleep? STOP Results Positive 09/02/24 11:04 QUESTION #5 FULL TEXT : Do you snore loudly (louder than talking or can be heard through closed doors)? 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 Specify any problems Hx of Preganancy in last 3 No 09/02/24 11:04 Months Nurse Filling Out Transfusion [email or web address] 09/02/24 11:04 & Questions: Date: 09/02/24 09/02/24 11:04 Time: 11:07 09/02/24 11:04 Patient unable to answer at this time (ie. confused, unrespo /Reproduction History /Reproductive History - pile driving superintendent: /Reproductive Hx- pile driving superintendent Hx Now No 09/02/24 11:04 Gestational Age (in weeks): EDC: Hx Hx Para Hx Section SAB No 09/02/24 11:04 PFSH Medical History (Updated 09/02/24 @ 11:31 by Carolynn Lee) Wears glasses Post-menopausal Open wound Arthritis Walker as ambulation aid Bladder disease History of renal disease Anemia DVT (deep venous thrombosis) Low iron High cholesterol Back pain Seizures Hoarseness Non-smoker CPAP (continuous positive airway pressure) dependence Leg cramps History of edema History of echocardiogram History of stress test Cardiology follow-up encounter Urinary incontinence Osteopenia Spinal osteophytosis Status epilepticus Complicated urinary tract infection Osteoporosis Osteoarthritis Venous insufficiency of both lower extremities Hypothyroidism Pulmonary hypertension Diastolic dysfunction Elevated parathyroid hormone Metabolic acidosis Lymphedema Preop cardiovascular exam H/O hemorrhoids (HFpEF) heart failure with preserved ejection fraction History of pulmonary embolus (PE) COVID-19 (01/19/21) MRSA (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 Abdominal pain DVT (deep venous thrombosis) GERD (gastroesophageal reflux disease) Insomnia Obstructive sleep apnea Essential (primary) hypertension Incomplete left bundle branch block Morbid obesity with BMI of 45.0-49.9, adult Home Medications ?Medication ?Instructions ?Recorded ?Last Taken ?Type cholecalciferol (vitamin D3) 25 25 mcg PO DAILY supple ment 07/25/21 Unknown History mcg (1,000 unit) capsule levonorgestrel (Mirena) 1 mcg intrauterine ONCE . Unknown History nitroglycerin 0.4 mg sublingual 0.4 mg sublingual Q5M PRN chest 06/27/22 Unknown Rx tablet pain #30 tabs polyethylene glycol 3350 17 gram 17 g PO DAILY bowel m obility #30 ea 06/09/23 02/24/24 Rx oral powder packet fluorometholone 0.1 % eye 1 drp ophthalmic (eye) BID e yes 02/24/24 02/24/24 History drops,suspension atorvastatin 40 mg tablet 40 mg PO QHS cholesterol 03/3005/17/24 22:35 History ferrous sulfate 324 mg (65 mg 324 mg PO DAILY Suppleme nt 05/18/24 Unknown History iron) tablet,delayed release levothyroxine 125 mcg tablet 125 mcg PO DAILY thyroid 05/18/24 05/18/24 05:40 History acetaminophen 325 mg tablet 650 mg (2 x 325 mg) PO TID #1 TAB 06/09/24 Unknown Rx apixaban 2.5 mg tablet (Eliquis) 2.5 mg PO BID #1 TAB 06/09/24 Unknown Rx bisacodyl 10 mg rectal suppository 10 mg MA X1 PRN Con stipation #1 ea 06/09/24 Unknown Rx calcium acetate(phosphat bind) 667 667 mg PO TIDCM #1 cap 06/09/24 Unknown Rx mg capsule carvedilol 3.125 mg tablet 3.125 mg PO BIDCM #1 TAB Unknown Rx magnesium hydroxide 400 mg/5 mL 30 ml PO X1 PRN Consti pation #30 mL 06/09/24 Unknown Rx oral suspension mirtazapine 15 mg tablet 7.5 mg (1/2 x 15 mg) PO 2000 #1 TAB 06/09/24 Unknown Rx pantoprazole 40 mg tablet,delayed 40 mg PO DAILY #1 TA B 06/09/24 Unknown Rx release sennosides 8.6 mg-docusate sodium 2 tab PO BID #1 TAB 06/09/24 Unknown Rx 50 mg tablet (Stimulant Laxative Plus) zolpidem 5 mg tablet 5 mg PO QHS #20 tabs 5 Unknown Rx furosemide 40 mg tablet 20 mg (1/2 x 40 mg) PO QAM # 30 tabs 08/31/24 Unknown Rx Allergy/AdvReac Type Severity Reaction Status Date / Time cefazolin (From Kefzol) Allergy Severe hives/difficulty Verified 09/02/24 10:57 swallowing ibuprofen Allergy Unknown Rash Verified 09/02/24 10:57 peanut Allergy Anaphylaxis Verified 09/02/24 10:57 Sulfa (Sulfonamide Allergy Unknown Verified 09/02/24 10:57 Antibiotics) sulfamethoxazole (From Allergy Other Verified 09/02/24 10:57 Bactrim) trimethoprim (From Bactrim) Allergy Other Verified 09/02/24 10:57 Family History Mother Cancer uterine Surgical History (Updated 09/02/24 @ 11:31 by Carolynn Lee) History of esophagogastroduodenoscopy (EGD) Hx of colonoscopy Hx of left cataract extraction History of dental surgery History of open reduction and internal fixation (ORIF) procedure History of cardiac catheterization Hx laparoscopic cholecystectomy H/O shoulder replacement History of left heart catheterization (08/01/22) History of dilatation and curettage History of hysteroscopy History of bilateral knee replacement History of herniorrhaphy Status post debridement History of open reduction and internal fixation (ORIF) procedure H/O hemorrhoidectomy History of gastric bypass Social History household members: other details: She has a roomate housing: house number of children: 1 current occupational status: retired pets and animals: Yes pets and animals: dog(s) Smoking Status: Never smoker alcohol intake: never substance use type: does not use caffeine: Yes Type: coffee Number of servings: 3 Audit: Pertinent Findings Pertinent Findings EKG Perinent findings: May 02, 2024. Sinus rhythm with PACs and a short run of NSVT. T wave abnormality consider lateral ischemia. Stress test pertinent findings: June 17, 2024. No chest pain or shortness of breath during the stress test. No EKG changes indicating ischemia. Echo (EF%) pertinent findings: August 29, 2021. Ejection fraction 65%. PASP is 34 mmHg. No aortic stenosis noted. Heart catheterization pertinent findings: August 01, 2022. Nonobstructive coronary arteries. Hypertension. EF 65%. Consult pertinent findings: 02/09/2024. Dr. Jackson. 1. Heart failure with preserved ejection fraction?chronic-patient is doing well. Will continue her Lasix 40 mg a day. Continue beta-rosemarie. 2. Swelling of left lower extremity?acute-patient complains of pain in her lower extremity?this does not appear different from before. DVT has been excluded previously. 3. Preop cardiovascular exam acute-patient appears stable. No contraindications to upcoming surgery. Recommendation Anesthesia Recommendation Anesthesia recommendation: F/U recommended (We are missing the nuclear part of her stress test in June.)
--- NOTE | 2024-09-02 16:18 | PAT.ANESEVAL ---
Pre-Assessment Diagnosis/Proposed Procedure Planned Operative Procedure(s): DEBRIDEMENT OF RIGHT LEG WOUND PLACEMENT OF SKIN GRAFT Anesthesia History Anesthesia History - machine operator general: Anesthesia History - machine operator general Hx Hospitalization Yes: 04/2024-06/2024 PROBABLE 09/02/24 11:04 SEPSIS/INTUBATED AND HAD SEIZURES Any Problems With Anesthesia No 09/02/24 11:04 Cholinesterase deficiency No 09/02/24 11:04 You/Your Family Experience No 09/02/24 11:04 fever (hyperthermia) with Relationship Recent Exposure to Contagious No 12/26/21 07:36 Disease Does patient have nerve No 09/02/24 11:04 stimulator Patient instructed to have device shut off --Does patient have Pacemaker or ICD? When Was Last Pacemaker Check QUESTION #4 FULL TEXT: You/Your Family Experience fever (hyperthermia) with Anesthesia Last Oral Intake Last Oral intake: Last Oral Intake NPO since Meds taken in AM with sips of water? Meds patient instructed to take am of surgery PONV PONV - machine operator general: PONV - machine operator general Female Yes 09/02/24 11:04 HX of Motion Sickness No 09/02/24 11:04 HX of N/V After Surgery No 09/02/24 11:04 Non-Smoker Yes 09/02/24 11:04 Duration of Surgery greater Yes 09/02/24 11:04 than 60 minutes Number of Risk Factors 3 09/02/24 11:04 PONV Score Moderate Risk 09/02/24 11:04 Height & Weight Height & Weight: Anesthesia: Height & Weight Height 5 ft 1 in 07/29/24 14:53 Respiratory Assessment Respiratory Assessment - machine operator general: Respiratory Tract Infection Hx - machine operator general Hx Respiratory Tract Infection No 09/02/24 11:04 STOP Sleep Apnea STOP Sleep Apnea - machine operator general: STOP Sleep Apnea - machine operator general Hx Hypertension Yes: CONTROLLED WITH MED 09/02/24 11:04 Hx Sleep Apnea Yes 09/02/24 11:04 CPAP Yes: DOESNT WEAR SINCE 09/02/24 11:04 GASTRIC BYPASS BIPAP No 09/02/24 11:04 Do you snore loudly (louder than talking or can be heard Do you often feel tired/ fatigued/ sleepy during daytime? Has anyone observed you stop breathing during sleep? STOP Results Positive 09/02/24 11:04 QUESTION #5 FULL TEXT : Do you snore loudly (louder than talking or can be heard through closed doors)? Tobacco Use History Tobacco Use History - machine operator general: Tobacco Use History - machine operator general Tobacco Use Non-smoker 12/26/21 07:36 Smoking Status Never smoker 09/02/24 11:04 Hx Tobacco Use No 09/02/24 11:04 Years Smoking Packs Smoked per Day Smoking Cessation Date was within the last 15 years Hx Smoking Cessation Date Hx Smoking Cessation Counseling Hematologic Medial History Hematologic Hx - machine operator general: Hematologic Medical Hx - lab head Hx of Blood Transfusion Yes 09/02/24 11:04 Hx of Transfusion in last 3 No 09/02/24 11:04 Months Date of Last Transfusion (if within last 3 months) Ever experience any problems No 09/02/24 11:04 with transfusion(s)? Specify any problems Hx of Preganancy in last 3 No 09/02/24 11:04 Months Nurse Filling Out Transfusion DSCHRIBER 09/02/24 11:04 & Questions: Date: 09/02/24 09/02/24 11:04 Time: 11:07 09/02/24 11:04 Patient unable to answer at this time (ie. confused, unrespo /Reproduction History /Reproductive History - machine operator general: /Reproductive Hx- machine operator general Hx Now No 09/02/24 11:04 Gestational Age (in weeks): EDC: Hx Hx Para Hx Section SAB No 09/02/24 11:04 PFSH Medical History (Updated 09/02/24 @ 11:31 by Carolynn Lee) Wears glasses Post-menopausal Open wound Arthritis Walker as ambulation aid Bladder disease History of renal disease Anemia DVT (deep venous thrombosis) Low iron High cholesterol Back pain Seizures Hoarseness Non-smoker CPAP (continuous positive airway pressure) dependence Leg cramps History of edema History of echocardiogram History of stress test Cardiology follow-up encounter Urinary incontinence Osteopenia Spinal osteophytosis Status epilepticus Complicated urinary tract infection Osteoporosis Osteoarthritis Venous insufficiency of both lower extremities Hypothyroidism Pulmonary hypertension Diastolic dysfunction Elevated parathyroid hormone Metabolic acidosis Lymphedema Preop cardiovascular exam H/O hemorrhoids (HFpEF) heart failure with preserved ejection fraction History of pulmonary embolus (PE) COVID-19 (01/19/21) MRSA (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 Abdominal pain DVT (deep venous thrombosis) GERD (gastroesophageal reflux disease) Insomnia Obstructive sleep apnea Essential (primary) hypertension Incomplete left bundle branch block Morbid obesity with BMI of 45.0-49.9, adult Home Medications ?Medication ?Instructions ?Recorded ?Last Taken ?Type cholecalciferol (vitamin D3) 25 25 mcg PO DAILY supplement 07/25/21 Unknown History mcg (1,000 unit) capsule levonorgestrel (Mirena) 1 mcg intrauterine ONCE . 07/25/21 Unknown History nitroglycerin 0.4 mg sublingual 0.4 mg sublingual Q5M PRN chest 06/27/22 Unknown Rx tablet pain #30 tabs polyethylene glycol 3350 17 gram 17 g PO DAILY bowel mobility #30 ea 06/09/23 02/24/24 Rx oral powder packet fluorometholone 0.1 % eye 1 drp ophthalmic (eye) BID eyes 02/24/24 02/24/24 History drops,suspension atorvastatin 40 mg tablet 40 mg PO QHS cholesterol 05/18/24 05/17/24 22:35 History ferrous sulfate 324 mg (65 mg 324 mg PO DAILY Supplement 05/18/24 Unknown History iron) tablet,delayed release levothyroxine 125 mcg tablet 125 mcg PO DAILY thyroid 05/18/24 05/18/24 05:40 History acetaminophen 325 mg tablet 650 mg (2 x 325 mg) PO TID #1 TAB 06/09/24 Unknown Rx apixaban 2.5 mg tablet (Eliquis) 2.5 mg PO BID #1 TAB 06/09/24 Unknown Rx bisacodyl 10 mg rectal suppository 10 mg WV X1 PRN Constipation #1 ea 06/09/24 Unknown Rx calcium acetate(phosphat bind) 667 667 mg PO TIDCM #1 cap 06/09/24 Unknown Rx mg capsule carvedilol 3.125 mg tablet 3.125 mg PO BIDCM #1 TAB 06/09/24 Unknown Rx magnesium hydroxide 400 mg/5 mL 30 ml PO X1 PRN Constipation #30 mL 06/09/24 Unknown Rx oral suspension mirtazapine 15 mg tablet 7.5 mg (1/2 x 15 mg) PO 2000 #1 TAB 06/09/24 Unknown Rx pantoprazole 40 mg tablet,delayed 40 mg PO DAILY #1 TAB 06/09/24 Unknown Rx release sennosides 8.6 mg-docusate sodium 2 tab PO BID #1 TAB 06/09/24 Unknown Rx 50 mg tablet (Stimulant Laxative Plus) zolpidem 5 mg tablet 5 mg PO QHS #20 tabs 06/14/24 Unknown Rx furosemide 40 mg tablet 20 mg (1/2 x 40 mg) PO QAM #30 tabs 08/31/24 Unknown Rx Allergy/AdvReac Type Severity Reaction Status Date / Time cefazolin (From Kefzol) Allergy Severe hives/difficulty Verified 09/02/24 10:57 swallowing ibuprofen Allergy Unknown Rash Verified 09/02/24 10:57 peanut Allergy Anaphylaxis Verified 09/02/24 10:57 Sulfa (Sulfonamide Allergy Unknown Verified 09/02/24 10:57 Antibiotics) sulfamethoxazole (From Allergy Other Verified 09/02/24 10:57 Bactrim) trimethoprim (From Bactrim) Allergy Other Verified 09/02/24 10:57 Family History Mother Cancer uterine Surgical History (Updated 09/02/24 @ 11:31 by Carolynn Lee) History of esophagogastroduodenoscopy (EGD) Hx of colonoscopy Hx of left cataract extraction History of dental surgery History of open reduction and internal fixation (ORIF) procedure History of cardiac catheterization Hx laparoscopic cholecystectomy H/O shoulder replacement History of left heart catheterization (08/01/22) History of dilatation and curettage History of hysteroscopy History of bilateral knee replacement History of herniorrhaphy Status post debridement History of open reduction and internal fixation (ORIF) procedure H/O hemorrhoidectomy History of gastric bypass Social History household members: other details: She has a roomate housing: house number of children: 1 current occupational status: retired pets and animals: Yes pets and animals: dog(s) Smoking Status: Never smoker alcohol intake: never substance use type: does not use caffeine: Yes Type: coffee Number of servings: 3 Audit: Pertinent Findings HISTORY of Pertinent Findings History of Pertinent Findings: EKG Pertinent Findings EKG Perinent findings May 02, 2024. Sinus 09/02/24 14:09 rhythm with PACs and a short run of NSVT. T wave abnormality consider lateral ischemia. Stress Test Pertinent Findings Stress test pertinent findings June 17, 2024. No chest 09/02/24 14:19 pain or shortness of breath during the stress test. No EKG changes indicating ischemia. Echo Pertinent Findings Echo (EF%) pertinent findings August 29, 2021. Ejection 09/02/24 14:09 fraction 65%. PASP is 34 mmHg. No aortic stenosis noted. Heart Catheterization Pertinent Findings Heart catheterization August 01, 2022. 09/02/24 14:09 pertinent findings Nonobstructive coronary arteries. Hypertension. EF 65%. Consult Pertinent Findings Consult pertinent findings 02/09/2024. Dr. Jackson. 09/02/24 14:18 1. Heart failure with preserved ejection fraction? chronic-patient is doing well. Will continue her Lasix 40 mg a day. Continue beta-rosemarie. 2. Swelling of left lower extremity?acute-patient complains of pain in her lower extremity?this does not appear different from before. DVT has been excluded previously. 3. Preop cardiovascular exam acute-patient appears stable. No contraindications to upcoming surgery. Recommendation Anesthesia Recommendation Anesthesia recommendation: OPTIMIZED for anesthesia (Stress test from 08/17/2024 is on the wrong patient's chart. Other findings for this patient are adequate. Patient is optimized and okay to proceed with anesthesia)
[2024-09-06] VITALS (11 sets, daily range): BP systolic 109–142; BP diastolic 55–78; PULSE 64–74; RESP 16–20; TEMP 36.6–37.4; O2SAT 96–100; BMI 47.0
--- NOTE | 2024-09-06 07:34 | PCM.HP.STD ---
HPI - General HPI Narrative History of Wound: Ting Vega is a delightful 84-year-old female who presents today as a referral from her technical services specialist for a right lower extremity hematoma that occurred when her right anterior lateral leg accidentally hit an open car door on 29 July 2024. The area filled with blood beneath the skin and the overlying skin slowly demarcated and became necrotic over the past several days. The initial treatment by the emergency department appears to be that they placed compression to prevent the hematoma from expanding with the hope that it would resorb. Today in clinic she denies having any fevers or chills. She reports that she is not currently on any blood thinner (although she was on Eliquis in the past, and it does set her med list that she is on apixaban 2.5 mg twice daily) or antiplatelet agents at this time. She is not a smoker. Patient became acutely ill in April 2024 earlier this year from the flu and was hospitalized and intubated in the ICU. She has been recovering at a custodial facility near [facility] ever since. She was doing well overall from a respiratory standpoint, and is attempting to regain her strength and ambulate more. She is ambulatory at baseline. She is not currently on any oxygen. Of note she has a previous history of a DVT PE. X-ray at the time of her injury from the emergency department demonstrated a total knee arthroplasty on the right but no acute osseous abnormalities. Patient is not having any acute bony pain at this time in the area of injury. 15 Aug 2024: Doing well overall and endorses good dressing changes with the twice daily Dakin's soaked Kerlix. No fevers or chills. 22 Aug 2024: Doing well overall and endorses good dressing changes at the longterm. She is not interested in staying at the longterm while the VAC therapy is in place and would like a home wound VAC. He understands the risk benefits and alternatives (all discussed with her today at this appointment) to discharge while she has high-level wound care requirements. 01 Sep 2024: Doing well overall. Endorses excellent VAC changes. Current Encounter (DATE OF SURGERY H&P UPDATE): I saw and examined the patient this morning in pre-operative holding. We discussed risks and benefits of today's surgery and they would like to proceed. NO CHANGE in health history since last seen and evaluated. Ready to proceed with surgery. [facility] Medical History Wears glasses Post-menopausal Open wound Arthritis Walker as ambulation aid Bladder disease History of renal disease Anemia DVT (deep venous thrombosis) Low iron High cholesterol Back pain Seizures Hoarseness Non-smoker CPAP (continuous positive airway pressure) dependence Leg cramps History of edema History of echocardiogram History of stress test Cardiology follow-up encounter Urinary incontinence Osteopenia Spinal osteophytosis Status epilepticus Complicated urinary tract infection Osteoporosis Osteoarthritis Venous insufficiency of both lower extremities Hypothyroidism Pulmonary hypertension Diastolic dysfunction Elevated parathyroid hormone Metabolic acidosis Lymphedema Preop cardiovascular exam H/O hemorrhoids (HFpEF) heart failure with preserved ejection fraction History of pulmonary embolus (PE) COVID-19 (01/19/21) MRSA (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 Abdominal pain DVT (deep venous thrombosis) GERD (gastroesophageal reflux disease) Insomnia Obstructive sleep apnea Essential (primary) hypertension Incomplete left bundle branch block Morbid obesity with BMI of 45.0-49.9, adult Home Medications ?Medication ?Instructions ?Recorded ?Last Taken ?Type levonorgestrel (Mirena) 1 mcg intrauterine ONCE . 07/25/21 Unknown History nitroglycerin 0.4 mg sublingual 0.4 mg sublingual Q5M PRN chest 06/27/22 Unknown Rx tablet pain #30 tabs polyethylene glycol 3350 17 gram 17 g PO DAILY bowel mobility #30 ea 06/09/23 02/24/24 Rx oral powder packet fluorometholone 0.1 % eye 1 drp ophthalmic (eye) BID eyes 02/24/24 02/24/24 History drops,suspension atorvastatin 40 mg tablet 40 mg PO QHS cholesterol 05/18/24 05/17/24 22:35 History ferrous sulfate 324 mg (65 mg 324 mg PO DAILY Supplement 05/18/24 Unknown History iron) tablet,delayed release levothyroxine 125 mcg tablet 125 mcg PO DAILY thyroid 05/18/24 05/18/24 05:40 History acetaminophen 325 mg tablet 650 mg (2 x 325 mg) PO TID #1 TAB 06/09/24 Unknown Rx apixaban 2.5 mg tablet (Eliquis) 2.5 mg PO BID #1 TAB 06/09/24 Unknown Rx bisacodyl 10 mg rectal suppository 10 mg PA X1 PRN Constipation #1 ea 06/09/24 Unknown Rx calcium acetate(phosphat bind) 667 667 mg PO TIDCM #1 cap 06/09/24 Unknown Rx mg capsule carvedilol 3.125 mg tablet 3.125 mg PO BIDCM #1 TAB 06/09/24 Unknown Rx magnesium hydroxide 400 mg/5 mL 30 ml PO X1 PRN Constipation #30 mL 06/09/24 Unknown Rx oral suspension mirtazapine 15 mg tablet 7.5 mg (1/2 x 15 mg) PO 2000 #1 TAB 06/09/24 Unknown Rx pantoprazole 40 mg tablet,delayed 40 mg PO DAILY #1 TAB 06/09/24 Unknown Rx release sennosides 8.6 mg-docusate sodium 2 tab PO BID #1 TAB 06/09/24 Unknown Rx 50 mg tablet (Stimulant Laxative Plus) zolpidem 5 mg tablet 5 mg PO QHS #20 tabs 06/14/24 Unknown Rx cholecalciferol (vitamin D3) 25 50 mcg PO DAILY supplement 09/05/24 Unknown History mcg (1,000 unit) capsule dextromethorphan-guaifenesin 30 1 tab PO Q12H 09/05/24 Unknown History mg-600 mg tablet extended [id number] hr (Mucinex DM) furosemide 40 mg tablet 40 mg PO Q OTHER DAY 09/05/24 Unknown History lacosamide 100 mg tablet 100 mg PO BID 09/05/24 Unknown History ondansetron 4 mg disintegrating 4 mg PO Q6H 09/05/24 Unknown History tablet oxycodone 5 mg tablet 5 mg PO Q4H PRN PRN pain 09/05/24 Unknown History Allergy/AdvReac Type Severity Reaction Status Date / Time cefazolin (From Kefzol) Allergy Severe hives/difficulty Verified 09/05/24 08:42 swallowing ibuprofen Allergy Unknown Rash Verified 09/05/24 08:42 peanut Allergy Anaphylaxis Verified 09/05/24 08:42 Sulfa (Sulfonamide Allergy Unknown Verified 09/05/24 08:42 Antibiotics) sulfamethoxazole (From Allergy Other Verified 09/05/24 08:42 Bactrim) trimethoprim (From Bactrim) Allergy Other Verified 09/05/24 08:42 Family History Mother Cancer uterine Surgical History History of esophagogastroduodenoscopy (EGD) Hx of colonoscopy Hx of left cataract extraction History of dental surgery History of open reduction and internal fixation (ORIF) procedure History of cardiac catheterization Hx laparoscopic cholecystectomy H/O shoulder replacement History of left heart catheterization (08/01/22) History of dilatation and curettage History of hysteroscopy History of bilateral knee replacement History of herniorrhaphy Status post debridement History of open reduction and internal fixation (ORIF) procedure H/O hemorrhoidectomy History of gastric bypass Social History household members: other details: She has a roomate housing: house number of children: 1 current occupational status: retired pets and animals: Yes pets and animals: dog(s) Smoking Status: Never smoker alcohol intake: never substance use type: does not use caffeine: Yes Type: coffee Number of servings: 3 Physical Exam Narrative Right lower extremity examination: Vac in place holding suction Compartments of the leg are soft Motor: 5+ dorsiflexion and plantarflexion. Sensory exam: Sensation to light touch intact on the foot and ankle Vascular exam: 2+ dorsalis pedis and posterior tibial pulses Assessment & Plan Assessment/Plan (1) Wound of right lower extremity: PLAN: Continues to make significant improvement, especially with the wound VAC. There is now granulation tissue over the muscle. Ready for skin grafting. I reiterated the below risks with her today at our appointment and she would like to proceed with skin grafting: I talked the patient about the risks, benefits, and alternatives to skin grafting. We talked about the risk of skin graft failure, and need for debridement and continued wound care. She would like to proceed with skin graft versus doing continue dressing changes and wound care modalities (discussed TheraSkin and other dermal substitutes and continued wound VAC therapy, and she would like to do skin graft as this would get her potentially healed quicker). I talked to her also about the general risks of surgery, including bleeding, infection, damage to surrounding structures, poor scaring, surgical site dehiscence and wound formation, need for wound care, need for repeat operations, failure to obtain the desired result, DVT/PE, and the risks of anesthesia including , including stroke (from low blood pressure/ischemia or clot). The benefits and alternatives of this surgery were also discussed. All of their questions were answered, and they agreed to proceed with surgery. Plan for wound VAC 3 times per week VAC changes, and okay for home wound VAC. VAC should be changed 3 times per week (if discharged from longterm will need home health 3 times per week for 3 times per week VAC changes) until there is a skin graft, at which time the skin graft VAC will remain for 1 week (will not be changed after the skin graft). Patient will continue to be seen weekly at the wound care center. Discussed signs and symptoms of infection and strict return precautions. Patient happy with the plan INTERVAL H&P PLAN, DATE OF SURGERY: We will proceed with surgery today. Discussed risks, benefits, and alternatives to skin graft. She would like to proceed. Understands risks of skin graft failure/need for continued wound care. She would like to proceed.
[2024-09-06] MEDS: Ipratropium/Albuterol Sulfate 3 ML AMPUL.NEB INHALATION (08:03)
[2024-09-06] MEDS: Carvedilol 3.125 MG TABLET PO (08:18)
[2024-09-06] MEDS: Lactated Ringers 1,000 ML 15 ML IV (08:31)
--- NOTE | 2024-09-06 08:32 | PCM.OPRPT ---
Operative Report (Standard) Operative Information Date of Procedure: 09/06/24 Pre-Operative Diagnosis: Right lower extremity wound Post-Operative Diagnosis: Same Surgery/Procedure Performed: 1) excision of right lower extremity wound for surgical preparation of skin graft , 5x 6 centimeters (CPT 18745) 2) split-thickness skin graft from right thigh to right leg, 5 x 6 cm (CPT 06759) appraisal manager: Yes Bale Breaker Operator: Marianne Carlisle Tasks completed by assistant loan processor: Retracting Type of Anesthesia: Local MAC (30 cc of 50-50 mixture of 1% lidocaine with 1-200,000 epinephrine and quarter percent Marcaine with 1-200,000 epinephrine) RN Documented Start/Stop Times: Operation Date: 09/06/24 09:00 Case Time Into Pre-Op 09/06/24 07:33 Out of Pre-Op 09/06/24 08:49 Anesthesia Start 09/06/24 08:52 Into Room 09/06/24 08:52 Procedure Start 09/06/24 09:12 Procedure End 09/06/24 09:35 Procedure Start Time: 08:52 Procedure Stop Time: 09:35 Select all DRAINS/GRAFTS/IMPLANTS that apply: None Estimated Blood Loss: 20 cc Specimen collected: No Description of surgery: Indications: Patient is a delightful 84-year-old female with right lower extremity wound ready for skin grafting. She understands the risks, benefits, and alternatives to the skin grafting procedure and would like to proceed. Procedure details: Patient was correctly identified in preoperative holding and taken back to the operating room where she was administered sedation and local anesthesia. She was prepped and draped in sterile fashion and all proper timeouts were performed. The above-noted local solution was injected in the donor site from the right thigh as well as around the wound edges. The right lower extremity wound was excised with a curette and washed with 3 L normal saline as well as Irrisept. Hemostasis obtained with epinephrine soaked Telfa. The total excision was 5 x 6 centimeters. Attention was then turned to skin graft harvest on the right thigh. Using a Magen dermatome of the skin graft was harvested at 121000th of manage and trimmed to fit for a split-thickness skin graft of 5 x 6 centimeters. It was meshed 1.5-1. It was then sutured into place over the wound with 3-0 Chromic Gut suture. Adaptic and a wound VAC was applied over the skin graft. The donor site hemostasis was obtained with epinephrine soaked Telfa and then we placed Mepilex Ag, and ABD, Ioban tape, and a loose Gen wrap. Patient tolerated the procedure well. She was awakened taken the PACU in stable condition. Surgical Findings: Healthy wound bed ready for skin grafting Complications Complications: No
--- NOTE | 2024-09-06 08:44 | PRE.ANES_ITS ---
ASA Classification* ASA Classification ASA Classification: 3 Assessment & Plan Anesthesia* Anesthesia Assessment Anesthesia Assessment: Discussed sedation and/or anesthesia options, risks, benefits, and alternatives with patient/parents/legal guardian/POA. Questions invited. The patient/parents/legal guardian/POA seems to understand and agrees to proceed with anesthesia plan. Reviewed the physical assessment, medical history, allergy history and patient home medications list prior to surgery/procedure/anesthetic and documented any changes. Performed airway and anesthesia risk assessments. Anesthesia Type Anesthesia Type: MAC History Source History Obtained from:: Patient and Chart Anesthesia Focused Assessment* Temperature: 97.9 F Pulse Rate: 72 Blood Pressure: 142/55 Respiratory Rate: 20 Pulse Ox: 97 Oxygen Delivery Method: Room Air Airway Assessment Mouth opens: >3 cm Mallampati Score: III Teeth Condition: Caps/Crowns (Multiple crowns and implants. They are all tight.) Neck Range of motion (ROM): Limited ROM (Somewhat decreased extension.) Focused Labs Anesthesia Preop lab: CBC WBC 5.0 K/mm3 (4.4-11.0) 08/22/24 05:35 08/22/24 RBC 2.74 M/mm3 (4.2-5.4) L 08/22/24 05:35 08/22/24 Hgb 8.7 g/dL (12.0-15.0) L 08/22/24 05:35 08/22/24 Hct 28.3 % (37-47) L 08/22/24 05:35 08/22/24 Plt Count 193 K/mm3 (150-450) 08/22/24 05:35 08/22/24 CHEMISTRY Potassium 3.5 mmol/L (3.3-5.1) 08/22/24 05:35 08/22/24 Sodium 143 mmol/L (133-145) 08/22/24 05:35 08/22/24 Magnesium 2.0 mg/dL (1.5-2.2) 06/13/24 05:19 06/13/24 Phosphorus 4.1 mg/dL (2.7-4.5) 06/13/24 05:19 06/13/24 BUN 38 mg/dL (4-19) H 08/22/24 05:35 08/22/24 Creatinine 1.86 mg/dL (0.70-1.20) H 08/22/24 05:35 Glucose 79 mg/dL (70-99) 08/22/24 05:35 08/22/24 TSH 1.750 uIU/mL (0.300-4.200) 07/25/24 05:16 04/04/30 COAG PT 16.1 SECONDS (11.7-14.9) H 05/02/24 19:47 04/07 10/28 Pre-Assessment Diagnosis/Proposed Procedure Planned Operative Procedure(s): DEBRIDEMENT OF RIGHT LEG WOUND PLACEMENT OF SKIN GRAFT Anesthesia History 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 When Was Last Pacemaker Check QUESTION #4 FULL TEXT: You/Your Family Experience fever (hyperthermia) with Anesthesia Last Oral Intake Last Oral intake: Last Oral Intake NPO since 20:00 09/06/24 08:12 Meds taken in AM with sips of Yes 09/06/24 08:12 water? 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 Female Yes 09/02/24 11:04 HX of Motion Sickness No 09/02/24 11:04 HX of N/V After Surgery No 09/02/24 11:04 Non-Smoker Yes 09/02/24 11:04 Duration of Surgery greater Yes 09/02/24 11:04 than 60 minutes Number of Risk Factors 3 09/02/24 11:04 PONV Score Moderate Risk 09/02/24 11:04 Height & Weight Height & Weight: Anesthesia: Height & Weight Height 4 ft 11 in 09/06/24 08:12 Weight: 105.687 kg 09/06/24 08:12 Body Mass Index (BMI) 47.0 09/06/24 08:12 Respiratory Assessment Respiratory Assessment - mainspring winder and oiler: Respiratory Tract Infection Hx - 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 She has only been on it for a couple days. STOP Sleep Apnea STOP Sleep Apnea - mainspring winder and oiler: STOP Sleep Apnea - mainspring winder and oiler Hx Hypertension Yes 09/04/24 00:24 Hx Sleep Apnea Yes 09/02/24 11:04 CPAP Yes: DOESNT WEAR SINCE 09/02/24 11:04 GASTRIC BYPASS BIPAP No 09/02/24 11:04 Do you snore loudly (louder than talking or can be heard Do you often feel tired/ fatigued/ sleepy during daytime? Has anyone observed you stop breathing during sleep? STOP Results Positive 09/02/24 11:04 QUESTION #5 FULL TEXT : Do you snore loudly (louder than talking or can be heard through closed doors)? 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 Specify any problems Hx of Preganancy in last 3 No 09/02/24 11:04 Months Nurse Filling Out Transfusion DSCHRIBER 09/02/24 11:04 & Questions: Date: 09/02/24 09/02/24 11:04 Time: 11:07 09/02/24 11:04 Patient unable to answer at this time (ie. confused, unrespo /Reproduction History /Reproductive History - mainspring winder and oiler: /Reproductive Hx- main[employer] winder and oiler Hx Now No 09/02/24 11:04 Gestational Age (in weeks): EDC: Hx Hx Para Hx Section SAB No 09/02/24 11:04 Active Medications Active Medications: Current Medications Generic Name Dose Route Start Last Admin Trade Name Kasie PRN Reason Stop Dose Admin Clindamycin Phosphate 900 mg in 50 mls @ 75 mls/hr 09/06/24 09:00 Cleocin IV 09/06/24 09:39 INTRAOP ONE Lactated Ringer's 1,000 mls @ 15 mls/hr 09/06/24 07:45 09/06/24 08:31 IV 15 mls/hr .Q48H VALERIO Administration PFSH Medical History Wears glasses Post-menopausal Open wound Arthritis Walker as ambulation aid Bladder disease History of renal disease Anemia DVT (deep venous thrombosis) Low iron High cholesterol Back pain Seizures Hoarseness Non-smoker CPAP (continuous positive airway pressure) dependence Leg cramps History of edema History of echocardiogram History of stress test Cardiology follow-up encounter Urinary incontinence Osteopenia Spinal osteophytosis Status epilepticus Complicated urinary tract infection Osteoporosis Osteoarthritis Venous insufficiency of both lower extremities Hypothyroidism Pulmonary hypertension Diastolic dysfunction Elevated parathyroid hormone Metabolic acidosis Lymphedema Preop cardiovascular exam H/O hemorrhoids (HFpEF) heart failure with preserved ejection fraction History of pulmonary embolus (PE) COVID-19 (01/19/21) MRSA (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 Abdominal pain DVT (deep venous thrombosis) GERD (gastroesophageal reflux disease) Insomnia Obstructive sleep apnea Essential (primary) hypertension Incomplete left bundle branch block Morbid obesity with BMI of 45.0-49.9, adult Home Medications ?Medication ?Instructions ?Recorded ?Last Taken ?Type levonorgestrel (Mirena) 1 mcg intrauterine ONCE . Unknown History nitroglycerin 0.4 mg sublingual 0.4 mg sublingual Q5M PRN chest 06/27/22 Unknown Rx tablet pain #30 tabs polyethylene glycol 3350 17 gram 17 g PO DAILY bowel m obility #30 ea 06/09/23 02/24/24 Rx oral powder packet fluorometholone 0.1 % eye 1 drp ophthalmic (eye) BID e yes 02/24/24 09/05/24 History drops,suspension atorvastatin 40 mg tablet 40 mg PO QHS cholesterol 03/3009/05/24 History ferrous sulfate 324 mg (65 mg 324 mg PO DAILY Suppleme nt 05/18/24 09/05/24 History iron) tablet,delayed release levothyroxine 125 mcg tablet 125 mcg PO DAILY thyroid 05/18/24 09/05/24 History acetaminophen 325 mg tablet 650 mg (2 x 325 mg) PO TID #1 TAB 06/09/24 09/05/24 Rx apixaban 2.5 mg tablet (Eliquis) 2.5 mg PO BID #1 TAB 06/09/24 09/04/24 Rx bisacodyl 10 mg rectal suppository 10 mg NM X1 PRN Con stipation #1 ea 06/09/24 Unknown Rx calcium acetate(phosphat bind) 667 667 mg PO TIDCM #1 cap 06/09/24 Unknown Rx mg capsule carvedilol 3.125 mg tablet 3.125 mg PO BIDCM #1 TAB 09/05/24 Rx magnesium hydroxide 400 mg/5 mL 30 ml PO X1 PRN Consti pation #30 mL 06/09/24 Unknown Rx oral suspension mirtazapine 15 mg tablet 7.5 mg (1/2 x 15 mg) PO 2000 #1 TAB 06/09/24 09/05/24 Rx pantoprazole 40 mg tablet,delayed 40 mg PO DAILY #1 TA B 06/09/24 09/04/24 Rx release sennosides 8.6 mg-docusate sodium 2 tab PO BID #1 TAB 06/09/24 Unknown Rx 50 mg tablet (Stimulant Laxative Plus) zolpidem 5 mg tablet 5 mg PO QHS #20 tabs 5 09/04/24 Rx cholecalciferol (vitamin D3) 25 50 mcg PO DAILY supple ment 09/05/24 09/05/24 History mcg (1,000 unit) capsule dextromethorphan-guaifenesin 30 1 tab PO Q12H 09/05/24 Unknown History mg-600 mg tablet extended [id number] hr (Mucinex DM) furosemide 40 mg tablet 40 mg PO Q OTHER DAY 5 09/05/24 History lacosamide 100 mg tablet 100 mg PO BID 09/05/2409/05 History ondansetron 4 mg disintegrating 4 mg PO Q6H 09/05/24 U nknown History tablet oxycodone 5 mg tablet 5 mg PO Q4H PRN PRN pain 05/31 Unknown History benzonatate 100 mg capsule 100 mg PO TID 09/06/24 Unkn own History doxycycline monohydrate 100 mg 100 mg PO BID 09/06/24 09/05/24 History capsule oxycodone 5 mg tablet 5 mg PO Q6H PRN pain 5 days #14 09/06/24 Unknown Rx tabs Allergy/AdvReac Type Severity Reaction Status Date / Time cefazolin (From Kefzol) Allergy Severe hives/difficulty Verified 09/06/24 07:54 swallowing ibuprofen Allergy Unknown Rash Verified 09/06/24 07:54 peanut Allergy Anaphylaxis Verified 09/06/24 07:54 Sulfa (Sulfonamide Allergy Unknown Verified 09/06/24 07:54 Antibiotics) sulfamethoxazole (From Allergy Other Verified 09/06/24 07:54 Bactrim) trimethoprim (From Bactrim) Allergy Other Verified 09/06/24 07:54 Family History Mother Cancer uterine Surgical History History of esophagogastroduodenoscopy (EGD) Hx of colonoscopy Hx of left cataract extraction History of dental surgery History of open reduction and internal fixation (ORIF) procedure History of cardiac catheterization Hx laparoscopic cholecystectomy H/O shoulder replacement History of left heart catheterization (08/01/22) History of dilatation and curettage History of hysteroscopy History of bilateral knee replacement History of herniorrhaphy Status post debridement History of open reduction and internal fixation (ORIF) procedure H/O hemorrhoidectomy History of gastric bypass Social History household members: other details: She has a roomate housing: house number of children: 1 current occupational status: retired pets and animals: Yes pets and animals: dog(s) Smoking Status: Never smoker alcohol intake: never substance use type: does not use caffeine: Yes Type: coffee Number of servings: 3 Review of Systems (Anesthesia) ROS Narrative System reviewed and no additional complaints, except as documented. Physical Exam Resp Auscultation: wheezes expiratory wheezes (Patient has expiratory wheezes on initial examination. DuoNeb breathing treatment did diminish these. However there are still present throughout.)
[2024-09-06] MEDS: Clindamycin 900 MG/50 ML BAG 75 MG IV (08:52)
[2024-09-06] MEDS: Bupiv/Epi 0.25% 30 ML Vial (09:26)
[2024-09-06] MEDS: Lidocaine 1% /Epi 1:100 (50ml) 50 ML VIAL (09:26)
[2024-09-06] MEDS: Epinephrine (1 mg/ml) 1 MG/ML VIAL (09:27)
[2024-09-06] MEDS: Mineral Oil, Light Sterile 10 ML Vial MC (09:30)
--- NOTE | 2024-09-06 09:48 | PCM.POST.ANE ---
Anesthesia: Postop Eval I Current Vital Signs Temperature: 98 F Pulse Rate: 74 Blood Pressure: 109/55 Respiratory Rate: 18 Pulse Ox: 96 Oxygen Delivery Method: Room Air Assessment Airway patent: Yes Spontaneous unlabored respirations: Yes Mental status: Awake and Calm nausea: No Vomiting: No Anesthesia Complication: No Fluid Hydration Crystalloid volume administer (ml): 400 Total IV fluid infused: 400 Progress Note Anesthesia document: Postop Eval 1 completed: Yes
--- NOTE | 2024-09-06 13:14 | POSTOPAN2_ITS ---
Anesthesia Postop Eval I Sum Postop Eval Completion status Anesthesia document: Postop Eval 1 completed: Yes Anesthesia Postop Eval I Summary Anesthesia Postop Eval I Summary: Anesthesia Postop Eval I: Assessment Summary Airway patent Yes 09/06/24 09:49 PAYROLL [email or web address] Spontaneous unlabored Yes 09/06/24 09:49 PAYROLL [email or web address] respirations Mental status Awake,Calm 09/06/24 09:49 PAYROLL [email or web address] nausea No 09/06/24 09:49 PAYROLL [email or web address] Vomiting No 09/06/24 09:49 PAYROLL [email or web address] Anesthesia Postop Eval I: Fluid Summary Crystalloid volume administer 400 09/06/24 09:49 PAYROLL [email or web address] (ml) Colloids volume administered ( ml) Blood Product volume administered (ml) Total IV fluid infused 400 09/06/24 09:49 PAYROLL [email or web address] Anesthesia Postop Eval I: Summary Notes Anesthesia Complication No 09/06/24 09:49 PAYROLL [email or web address] Anesthesia Complication Comment: Post-operative progress note Anesthesia: Postop Eval II Evaluation Mental status: Awake and Calm Pain Level: 0 nausea: No Vomiting: No Complications Anesthesia Complication: No
--- NOTE | 2024-09-06 13:14 | PCM.POSTANE2 ---
Anesthesia Postop Eval I Sum Postop Eval Completion status Anesthesia document: Postop Eval 1 completed: Yes Anesthesia Postop Eval I Summary Anesthesia Postop Eval I Summary: Anesthesia Postop Eval I: Assessment Summary Airway patent Yes 09/06/24 09:49 TOOL [email or web address] Spontaneous unlabored Yes 09/06/24 09:49 TOOL [email or web address] respirations Mental status Awake,Calm 09/06/24 09:49 TOOL [email or web address] nausea No 09/06/24 09:49 TOOL [email or web address] Vomiting No 09/06/24 09:49 TOOL [email or web address] Anesthesia Postop Eval I: Fluid Summary Crystalloid volume administer 400 09/06/24 09:49 TOOL [email or web address] (ml) Colloids volume administered ( ml) Blood Product volume administered (ml) Total IV fluid infused 400 09/06/24 09:49 TOOL [email or web address] Anesthesia Postop Eval I: Summary Notes Anesthesia Complication No 09/06/24 09:49 TOOL [email or web address] Anesthesia Complication Comment: Post-operative progress note Anesthesia: Postop Eval II Evaluation Mental status: Awake and Calm Pain Level: 0 nausea: No Vomiting: No Complications Anesthesia Complication: No
== END 2024-09-06 10:55 | disposition home or self-care (01) ==
LOC: SDC 07:25 → AC 07:27
PROVIDERS: PCP Nurse Practitioner Family; Referring Provider Surgery Plastic and Reconstructive Surgery; Visit Provider Surgery Plastic and Reconstructive Surgery
PROC: (CPT 15002; principal; 2024-09-06 08:45)
DX: S80.11XA Contusion of right lower leg, initial encounter (principal); I11.0 Hypertensive heart disease with heart failure; I50.30 Unspecified diastolic (congestive) heart failure; E66.01 Morbid (severe) obesity due to excess calories; Z68.42 Body mass index [BMI] 45.0-49.9, adult; W22.09XA Striking against other stationary object, initial encounter; E78.00 Pure hypercholesterolemia, unspecified; Z79.899 Other long term (current) drug therapy; Z86.16 Personal history of COVID-19
CPT/HCPCS: 15002; 15100; 00400; 94640

== ENCOUNTER 2024-09-19 14:00 | Outpatient (RCR) | payer MEDICARE, OTHER, SELFPAY ==
[2024-09-04 00:24] VITALS: BP 147/68; PULSE 75; RESP 18; TEMP 36
[2024-09-12 13:32] VITALS: BP 116/54; PULSE 65; RESP 18; TEMP 36.2
--- NOTE | 2024-09-12 14:16 | PCM.PN.BLA ---
Progress Note Post op day 5 from [facility] VAC removed. Pain controlled. Physical Exam Narrative RIGHT LOWER EXTREMITY 100% take of the skin graft. Right thigh donor site healthy. Assessment & Plan Assessment/Plan (1) S/P flap graft: PLAN: Expected course Xeroform twice daily to the skin graft Mepilex Ag today to the thigh donor site (do not change, keep for the next week) F/u in 1 week Procedures Integumentary [id number]: [id number] Global Visit
--- NOTE | 2024-09-13 09:59 | WC ---
PHOTO 09/12/24 POST OP RLE
[2024-09-19 14:22] VITALS: BP 138/78; PULSE 72; RESP 18; TEMP 36.7
--- NOTE | 2024-09-20 09:02 | PCM.PROGNOTE ---
Subjective Subjective The patient is an 84-year-old female presenting with the evaluation of the right lower extremity skin graft and the right thigh donor site. The skin graft on the right leg shows a 100% take and has healed nicely, indicating successful integration of the grafted skin. The donor site on the right thigh has also healed well, with no complications reported. The patient has been using Aquaphor as a moisturizer on both sites to aid in healing and prevent shear forces on the fresh skin. She has been advised to apply it twice daily and to avoid any dressings over the healed areas. The patient uses a compression pump from her ankle to her hip twice daily, which she has continued post-procedure. She reports no need for additional compression garments and has not experienced any adverse effects from the procedure. Attestation: Documentation on this patient encounter was supported using ambient scribe technology/ voice AI technology. The patient consented to recording for the purpose of documenting the encounter. Provider reviewed content of the generated note prior to signature. Objective Data Objective Data Vital Signs: Vital Signs Temp Pulse Resp BP 98.1 F 72 18 138/78 H 09/19/24 14:22 09/19/24 14:22 09/19/24 14:22 09/19/24 14:22 Physical Exam Narrative Skin graft healed with 100% take over the right lower extremity wound Donor site healthy appearing right thigh Both areas are dry Assessment & Plan Assessment/Plan (1) S/P flap graft: PLAN: 1. Right lower extremity skin graft The graft has taken 100% and is healing well. The patient is advised to continue using Aquaphor twice daily to maintain moisture and protect the graft. No dressings are needed, and the patient can shower normally. Follow-up in three weeks to assess continued healing and ensure no complications arise. 2. Right thigh donor site The donor site is healing well with no complications. Continue applying Aquaphor twice daily. No additional interventions are necessary at this time. PLAN: Plan - Apply Aquaphor to the right leg and thigh twice daily. - Avoid dressings over the healed areas. - Use the compression pump twice daily as usual. - Follow up in three weeks for a check-up. Charges/Coding Procedures Integumentary [id number]: [id number] Global Visit
--- NOTE | 2024-09-20 10:08 | WC ---
PHOTO 09/19/24 MARLENE
--- NOTE | 2024-09-20 10:09 | WC ---
PHOTO 09/09/24 RIGHT THIGH DONOR SITE
== END 2024-10-03 23:59 | disposition home or self-care (01) ==
LOC: WC 14:00
PROVIDERS: PCP Nurse Practitioner Family; Referring Provider Surgery Plastic and Reconstructive Surgery; Visit Provider Surgery Plastic and Reconstructive Surgery
DX: Z94.5 Skin transplant status (principal); Z79.899 Other long term (current) drug therapy
CPT/HCPCS: 99213; 99214; G0463

== ENCOUNTER 2024-09-28 13:09 | Inpatient (IN) | payer MEDICARE, OTHER, SELFPAY ==
[2024-09-28] VITALS (7 sets, daily range): BP systolic 102–141; BP diastolic 50–92; PULSE 78–100; RESP 13–23; TEMP 36.3–36.6; O2SAT 93–100; BMI 46.1; BMI 44.6
--- NOTE | 2024-09-28 15:19 | ED.RN ---
family comes out of patient room to have this rn look at pt's monitor because it had a question charles. pts family states she had another seizure and it went blank! this rn educates pt and family that with seizure activity the patient would not be responsive during the episode. family educated on difference between tremors and seizures.
--- NOTE | 2024-09-28 15:30 | RAD_ITS ---
PROCEDURE: KNEE 1 OR 2 VIEWS 09/28/2024 REASON FOR EXAM: PAIN, FALL TECHNIQUE: KNEE 1 OR 2 VIEWS, left COMPARISON: None. FINDINGS: Bones: Prior left total knee arthroplasty and patellar resurfacing. Severe diffuse demineralization. No obvious acute fracture. Joints: Total knee arthroplasty in anatomic alignment. Effusion: No effusion. Soft tissues: Soft tissues are unremarkable. Scattered surgical clips. RAD/Knee 1 or 2 Views IMPRESSION: No obvious acute fracture. Reading Location: [id number]
--- NOTE | 2024-09-28 15:31 | EX.ED.DYSGE1 ---
HPI History of Present Illness Chief Complaint: Lower Extremity Injury Narrative Narrative: Patient is a 84-year-old female with a past medical history of DVT, seizures, hypothyroidism, lymphedema, heart failure with preserved ejection fraction, TADEO, hypertension, BMI 45-49 who presented to the emergency department chief complaint of generalized weakness, knee pain. According to the patient recently she has become extremely weak and cannot walk and her legs are giving out on her. She states that she was working with physical therapy twice today and that she felt was and EMS had to be called out to pick her up. They note that recently over the last several days she has also developed a tremor that is new for her. In the triage note they note that she is having some word finding difficulty and notes that this has been going on several days as well. [facility] Medical History Wears glasses Post-menopausal Open wound Arthritis Walker as ambulation aid Bladder disease History of renal disease Anemia DVT (deep venous thrombosis) Low iron High cholesterol Back pain Seizures Hoarseness Non-smoker CPAP (continuous positive airway pressure) dependence Leg cramps History of edema History of echocardiogram History of stress test Cardiology follow-up encounter Urinary incontinence Osteopenia Spinal osteophytosis Status epilepticus Complicated urinary tract infection Osteoporosis Osteoarthritis Venous insufficiency of both lower extremities Hypothyroidism Pulmonary hypertension Diastolic dysfunction Elevated parathyroid hormone Metabolic acidosis Lymphedema Preop cardiovascular exam H/O hemorrhoids (HFpEF) heart failure with preserved ejection fraction History of pulmonary embolus (PE) COVID-19 (01/19/21) MRSA (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 Abdominal pain DVT (deep venous thrombosis) GERD (gastroesophageal reflux disease) Insomnia Obstructive sleep apnea Essential (primary) hypertension Incomplete left bundle branch block Morbid obesity with BMI of 45.0-49.9, adult Home Medications ?Medication ?Instructions ?Recorded ?Last Taken ?Type levonorgestrel (Mirena) 1 mcg intrauterine ONCE . 07/25/21 Unknown History nitroglycerin 0.4 mg sublingual 0.4 mg sublingual Q5M PRN chest 06/27/22 Unknown Rx tablet pain #30 tabs polyethylene glycol 3350 17 gram 17 g PO DAILY bowel mobility #30 ea 06/09/23 02/24/24 Rx oral powder packet fluorometholone 0.1 % eye 1 drp ophthalmic (eye) BID eyes 02/24/24 09/05/24 History drops,suspension atorvastatin 40 mg tablet 40 mg PO QHS cholesterol 05/18/24 09/05/24 History ferrous sulfate 324 mg (65 mg 324 mg PO DAILY Supplement 05/18/24 09/05/24 History iron) tablet,delayed release levothyroxine 125 mcg tablet 125 mcg PO DAILY thyroid 05/18/24 09/05/24 History acetaminophen 325 mg tablet 650 mg (2 x 325 mg) PO TID #1 TAB 06/09/24 09/05/24 Rx apixaban 2.5 mg tablet (Eliquis) 2.5 mg PO BID #1 TAB 06/09/24 09/04/24 Rx bisacodyl 10 mg rectal suppository 10 mg UT X1 PRN Constipation #1 ea 06/09/24 Unknown Rx calcium acetate(phosphat bind) 667 667 mg PO TIDCM #1 cap 06/09/24 Unknown Rx mg capsule carvedilol 3.125 mg tablet 3.125 mg PO BIDCM #1 TAB 06/09/24 09/05/24 Rx magnesium hydroxide 400 mg/5 mL 30 ml PO X1 PRN Constipation #30 mL 06/09/24 Unknown Rx oral suspension mirtazapine 15 mg tablet 7.5 mg (1/2 x 15 mg) PO 2000 #1 TAB 06/09/24 09/05/24 Rx pantoprazole 40 mg tablet,delayed 40 mg PO DAILY #1 TAB 06/09/24 09/04/24 Rx release sennosides 8.6 mg-docusate sodium 2 tab PO BID #1 TAB 06/09/24 Unknown Rx 50 mg tablet (Stimulant Laxative Plus) zolpidem 5 mg tablet 5 mg PO QHS #20 tabs 06/14/24 09/04/24 Rx cholecalciferol (vitamin D3) 25 50 mcg PO DAILY supplement 09/05/24 09/05/24 History mcg (1,000 unit) capsule dextromethorphan-guaifenesin 30 1 tab PO Q12H 09/05/24 Unknown History mg-600 mg tablet extended [id number] hr (Mucinex DM) furosemide 40 mg tablet 40 mg PO Q OTHER DAY 09/05/24 09/05/24 History lacosamide 100 mg tablet 100 mg PO BID 09/05/24 09/05/24 History ondansetron 4 mg disintegrating 4 mg PO Q6H 09/05/24 Unknown History tablet oxycodone 5 mg tablet 5 mg PO Q4H PRN PRN pain 09/05/24 Unknown History benzonatate 100 mg capsule 100 mg PO TID 09/06/24 Unknown History doxycycline monohydrate 100 mg 100 mg PO BID 09/06/24 09/05/24 History capsule oxycodone 5 mg tablet 5 mg PO Q6H PRN pain 5 days #14 09/06/24 Unknown Rx tabs Allergy/AdvReac Type Severity Reaction Status Date / Time cefazolin (From Kefzol) Allergy Severe hives/difficulty Verified 09/06/24 07:54 swallowing ibuprofen Allergy Unknown Rash Verified 09/06/24 07:54 peanut Allergy Anaphylaxis Verified 09/06/24 07:54 Sulfa (Sulfonamide Allergy Unknown Verified 09/06/24 07:54 Antibiotics) sulfamethoxazole (From Allergy Other Verified 09/06/24 07:54 Bactrim) trimethoprim (From Bactrim) Allergy Other Verified 09/06/24 07:54 Family History Mother Cancer uterine Surgical History History of esophagogastroduodenoscopy (EGD) Hx of colonoscopy Hx of left cataract extraction History of dental surgery History of open reduction and internal fixation (ORIF) procedure History of cardiac catheterization Hx laparoscopic cholecystectomy H/O shoulder replacement History of left heart catheterization (08/01/22) History of dilatation and curettage History of hysteroscopy History of bilateral knee replacement History of herniorrhaphy Status post debridement History of open reduction and internal fixation (ORIF) procedure H/O hemorrhoidectomy History of gastric bypass Social History household members: other details: She has a roomate housing: house number of children: 1 current occupational status: retired pets and animals: Yes pets and animals: dog(s) Smoking Status: Never smoker alcohol intake: never substance use type: does not use caffeine: Yes Type: coffee Number of servings: 3 ROS ROS ED ROS Narrative Constitutional: Denies fevers, chills, headaches, lightness, dizziness Eyes: Denies change in vision double vision blurry vision Cardiovascular: Denies chest pain Respiratory: Shortness of breath Abdomen: Denies abdominal pain nausea vomit diarrhea : Denies urinary symptoms Neurological: Complains of generalized weakness, abnormal involuntary shaking intermittently Musculoskeletal: Complains of bilateral knee pain after a fall Skin: Denies any rashes or lesions EXAM Physical Exam Narrative Exam Narrative: General: Patient was lying in bed rest comfortably did not appear to be in acute distress Head: Atraumatic, normocephalic Eyes: PERRL bilaterally, EOMI, no conjunctival injection noted Neck: Soft, supple, trachea midline Cardiovascular: Regular rate and rhythm no murmurs gallops rubs noted Respiratory: Clear to auscultation bilaterally Abdomen: Soft, nondistended, nontender to palpation Extremities: +5/5 strength noted in the bilateral upper and lower extremities, radial pulses +2/4 in the bilateral upper extremities Neurological: Patient following commands and that she was at [facility] year is 2024. NIH of 0 GCS 15 Skin: Warm, dry, patient has well-healed skin graft over the left knee and a healing skin graft over the right lateral suresh no concern for infection at this point time Const Vital Signs: 09/28/24 13:11 Temperature 98 F Temperature Source Temporal Pulse Rate 100 Respiratory Rate 16 Blood Pressure 109/50 L Blood Pressure Mean 69 Pulse Ox 100 MDM MDM MDM Narrative Medical decision making narrative: Patient is a 84-year-old female who presented to the emergency department the chief complaint generalized weakness and fall. On the differential diagnosis includes but not limited to intracranial hemorrhage, intracranial mass, electrolyte abnormality, ACS. Once workup is obtained reviewed she will be reevaluated. Patient has been difficult stick and imaging is pending at this point in time patient case will be signed out to oncoming provider to make ultimate disposition and follow-up on the results see their note for further details and ultimate disposition. Discharge Plan Triage Chief Complaint: Lower Extremity Injury ED Provider: Jhonatan Maxwell Dx/Rx/DC Orders Clinical Impression: Fall, Generalized weakness, Bilateral knee pain Prescriptions: No Action Mirena 20 mcg/24 hours (7 yrs) 52 mg intrauterine device 1 mcg intrauterine ONCE cholecalciferol (vitamin D3) 25 mcg (1,000 unit) capsule 50 mcg PO DAILY nitroglycerin 0.4 mg tablet, sublingual 0.4 mg sublingual Q5M PRN (Reason: chest pain) Qty: 30 1RF Rx Instructions: do not exceed 3 doses per episode lacosamide 100 mg tablet 100 mg PO BID furosemide 40 mg tablet 40 mg PO Q OTHER DAY oxycodone 5 mg tablet 5 mg PO Q4H PRN PRN (Reason: pain) ondansetron 4 mg tablet,disintegrating 4 mg PO Q6H Mucinex DM 30-600 mg tablet extended release 12 hr 1 tab PO Q12H fluorometholone 0.1 % drops,suspension 1 drp ophthalmic (eye) BID oxycodone 5 mg tablet 5 mg PO Q6H PRN (Reason: pain) 5 Days Qty: 14 0RF doxycycline monohydrate 100 mg capsule 100 mg PO BID benzonatate 100 mg capsule 100 mg PO TID polyethylene glycol 3350 17 gram Powder In Packet 17 g PO DAILY Qty: 30 0RF atorvastatin 40 mg tablet 40 mg PO QHS ferrous sulfate 324 mg (65 mg iron) tablet,delayed release (DR/EC) 324 mg PO DAILY levothyroxine 125 mcg tablet 125 mcg PO DAILY Patient Comments: TAKE 1 TABLET BY MOUTH ONCE DAILY. TAKE ON EMPTY STOMACH. FOR THYROID. acetaminophen 325 mg Tablet 650 mg PO TID Qty: 1 0RF carvedilol 3.125 mg Tablet 3.125 mg PO BIDCM Qty: 1 0RF bisacodyl 10 mg Suppository 10 mg UT X1 PRN (Reason: Constipation) Qty: 1 0RF calcium acetate(phosphat bind) 667 mg Capsule 667 mg PO TIDCM Qty: 1 0RF magnesium hydroxide 400 mg/5 mL Suspension 30 ml PO X1 PRN (Reason: Constipation) Qty: 30 0RF pantoprazole 40 mg Tablet,Delayed Release (Dr/Ec) 40 mg PO DAILY Qty: 1 0RF mirtazapine 15 mg Tablet 7.5 mg PO 2000 Qty: 1 0RF sennosides-docusate sodium [Stimulant Laxative Plus] 8.6-50 mg Tablet 2 tab PO BID Qty: 1 0RF Eliquis 2.5 mg tablet 2.5 mg PO BID Qty: 1 0RF zolpidem 5 mg tablet 5 mg PO QHS Qty: 20 0RF Primary Care Provider: Miryam Wells Referrals: Miryam Wells, [facility] [Primary Care Provider] - Print Language: Bahamian
--- NOTE | 2024-09-28 17:00 | CT_ITS ---
PROCEDURE: BRAIN/HEAD WITHOUT CONTRAST 09/28/2024 REASON FOR EXAM: WEAKNESS, TREMORS TECHNIQUE: BRAIN/HEAD WITHOUT CONTRAST Coronal and Sagittal reconstruction series were provided. One or more dose reduction techniques were used (e.g., Automated exposure control, adjustment of the mA and/or kV according to patient size, use of iterative reconstruction technique. RADIATION DOSE SUMMARY: DLP: 908 mGycm COMPARISON: Prior CT from 05/02/2024 FINDINGS: There is no acute infarct, intracranial hemorrhage, or mass effect. There is no hydrocephalus or significant midline shift. There is mild chronic microvascular ischemic changes. No acute, depressed calvarial fractures. No large scalp hematomas. CT/Brain/Head without Contrast IMPRESSION: No acute intracranial process. Consider MR if symptoms persist. Reading Location: [id number]
--- NOTE | 2024-09-28 17:05 | RAD_ITS ---
PROCEDURE: KNEE 1 OR 2 VIEWS 09/28/2024 REASON FOR EXAM: PAIN, FALL TECHNIQUE: KNEE 1 OR 2 VIEWS, right COMPARISON: Right tibia/fibula radiographs 07/29/2024. FINDINGS: Bones: Prior partially visualized right total knee arthroplasty. Severe diffuse demineralization. No obvious acute fracture. The patella is not entirely visualized on lateral imaging. Joints: Total knee arthroplasty in anatomic alignment. Effusion: No obvious effusion. Soft tissues: Soft tissues are unremarkable. Other: Vascular calcifications. RAD/Knee 1 or 2 Views IMPRESSION: No obvious acute fracture. Reading Location: [id number]
[2024-09-28] MEDS: 0.9% Normal Saline (1000mL) 1,000 ML 999 ML IV ×2 (17:25→20:58)
[2024-09-28 18:01] LABS: Hematocrit 30.0 % (37-47); Hemoglobin 9.2 g/dL (12.0-15.0); Immature Granulocytes Count 0.030 X10^3/uL (0.0-0.0); Mean Corp Hgb Conc 30.7 g/dL (32-36); Mean Corpuscular Volume 104.2 fL (81-99); Mean Platelet Vol. 13.2 fl (6.2-12.0); NRBC Flagged by Analyzer 0 % (0-5); Platelet Count 206 K/mm3 (150-450); RBC Distribution Width CV 15.5 % (11.6-14.6); RBC Distribution Width SD 58.2 fl (35.1-43.9); Red Blood Count 2.88 M/mm3 (4.2-5.4); White Blood Count 7.6 K/mm3 (4.4-11.0)
[2024-09-28 18:37] LABS: Lipase 54 U/L (13-75); Magnesium 3.1 mg/dL (1.5-2.2)
[2024-09-28 18:45] LABS: AST(SGOT) 289 U/L (<=31); Alanine Aminotransfer ALT/SGPT 351 U/L (<=34); Albumin, Serum 3.1 g/dL (3.4-4.8); Alkaline Phosphatase 130 U/L (35-104); Anion Gap 15 (5-15); BUN 111 mg/dL (4-19); BUN/Creat Ratio 26.7 RATIO (10-20); Calcium,Total 7.9 mg/dL (7.6-11.0); Carbon Dioxide 11.0 mmol/L (21.0-32.0); Chloride 113 mmol/L (98-108); Globulin 2.7 g/dL (2.2-4.2); Glucose 129 mg/dL (70-99); Potassium 6.0 mmol/L (3.3-5.1)
[2024-09-28 18:53] LABS: Troponin T High Sensitivity 44 ng/L (<=14)
[2024-09-28] MEDS: Albuterol *CONC* 2.5mg/0.5mL VIAL.NEB. 10 MG INHALATION (19:16)
[2024-09-28 19:54] LABS: Mucous, Urine 0 SEEN /hpf (<or=2+)
[2024-09-28 19:55] LABS: CPK Total, Creatine Kinase 27 U/L (24-195)
[2024-09-28 19:59] LABS: Color, Urine Straw (Yellow); Glucose, Dipstick Normal (Normal); Ketone-Dipstick Negative (Negative); Leukocyte Esterase-Dipstick 500 /ul (Negative); Nitrite-Dipstick Negative (Negative); Occult Blood-Urine 25 /ul (Negative); Protein-Dipstick 15 mg/dl (Negative); Specific Gravity, Urine 1.015 (1.002-1.030); Urine Bilirubin Dipstick Negative (Negative)
--- NOTE | 2024-09-28 20:00 | PCM.HP.STD ---
HPI - General General Date of Admission: 09/28/24 Date of Service: 09/28/24 Chief Complaint: Confusion, fatigue, poor oral intake. HPI Narrative The patient is an 84 y/o F w/ PMHx: PAF, COPD, Anxiety and depression, Morbid obesity, Seizure disorder, GERD, HTN, HLD, CKD stage III unclear subtype versus Stage IV, Chronic macrocytic anemia/Fe deficiency anemia, TADEO on CPAP, Hx VTE (DVT, PE), Hypothyroidism, Chronic lymphedema, HFpEF who presents to the [facility] ED on 09/28/2024 with history of generalized weakness and debility with bilateral knee pain however she recently became more weak and cannot even walk noting that her legs have been giving out with ongoing attempts for therapy twice daily but unfortunately given weakness and debility she had to have EMS called to be able to help her up off the floor and over the last several days she notes she has developed a fine essential tremor in addition to reportedly in triage having some difficulty with word finding and she does report that she is cognizant of this and has been ongoing for several days but eventually prompted eventual ED evaluation. Patient roommate notes she has not been drinking/hydrating well. She notes she is still making urine. Workup in the ED included T98, heart rate 100, BP 109/50, respiratory rate 16, 100% on room air with most recent repeat vitals heart rate 94, respiratory rate 13, 96% on room air, CBC with WBC 7.6, hemoglobin 9.2, MCV 104.2, platelet 206 without marked shift, CMP with potassium 6.0 not noted to be hemolyzed, chloride 113, carbon oxide 11, anion gap 15, BUN/creatinine 111/415, glucose 129, lactic acid less than 1, magnesium 3.1, total bilirubin 0.20, AST/LT 289/351, alk phos 130, total creatinine kinase pending upon request evaluation of patient, troponin initial 44, lipase 54, plain film of the left knee with no acute osseous findings/no evidence of acute fracture, plain film of the right knee with no acute osseous findings/no acute fracture, CT of the brain with no acute intracranial findings, EKG with PAF with peaked T waves V2 and QRS widening different than prior. In the ED patient ministered 2 L normal saline, albuterol inhalation 10 mg x 1, calcium gluconate 3 g IV x 1, insulin 10 units IV x 1, dextrose amp, sodium bicarbonate 150 mill equivalent IV x 1. Discussed with ED physician and patient will be administered dose low dose kayexelate. [facility] Medical History (Updated 09/28/24 @ 20:[address] Michelle Gallardo MD) PAF (paroxysmal atrial fibrillation) Wears glasses Post-menopausal Open wound Arthritis Walker as ambulation aid Bladder disease History of renal disease Anemia DVT (deep venous thrombosis) Low iron High cholesterol Back pain Seizures Hoarseness Non-smoker CPAP (continuous positive airway pressure) dependence Leg cramps History of edema History of echocardiogram History of stress test Cardiology follow-up encounter Urinary incontinence Osteopenia Spinal osteophytosis Status epilepticus Complicated urinary tract infection Osteoporosis Osteoarthritis Venous insufficiency of both lower extremities Hypothyroidism Pulmonary hypertension Diastolic dysfunction Elevated parathyroid hormone Metabolic acidosis Lymphedema Preop cardiovascular exam H/O hemorrhoids (HFpEF) heart failure with preserved ejection fraction History of pulmonary embolus (PE) COVID-19 (01/19/21) MRSA (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 Abdominal pain DVT (deep venous thrombosis) GERD (gastroesophageal reflux disease) Insomnia Obstructive sleep apnea Essential (primary) hypertension Incomplete left bundle branch block Morbid obesity with BMI of 45.0-49.9, adult Home Medications ?Medication ?Instructions ?Recorded ?Last Taken ?Type levonorgestrel (Mirena) 1 mcg intrauterine ONCE . 07/25/21 Unknown History nitroglycerin 0.4 mg sublingual 0.4 mg sublingual Q5M PRN chest 06/27/22 Unknown Rx tablet pain #30 tabs polyethylene glycol 3350 17 gram 17 g PO DAILY bowel mobility #30 ea 06/09/23 02/24/24 Rx oral powder packet fluorometholone 0.1 % eye 1 drp ophthalmic (eye) BID eyes 02/24/24 09/05/24 History drops,suspension atorvastatin 40 mg tablet 40 mg PO QHS cholesterol 05/18/24 09/05/24 History ferrous sulfate 324 mg (65 mg 324 mg PO DAILY Supplement 05/18/24 09/05/24 History iron) tablet,delayed release levothyroxine 125 mcg tablet 125 mcg PO DAILY thyroid 05/18/24 09/05/24 History acetaminophen 325 mg tablet 650 mg (2 x 325 mg) PO TID #1 TAB 06/09/24 09/05/24 Rx bisacodyl 10 mg rectal suppository 10 mg NJ X1 PRN Constipation #1 ea 06/09/24 Unknown Rx calcium acetate(phosphat bind) 667 667 mg PO TIDCM #1 cap 06/09/24 Unknown Rx mg capsule magnesium hydroxide 400 mg/5 mL 30 ml PO X1 PRN Constipation #30 mL 06/09/24 Unknown Rx oral suspension mirtazapine 15 mg tablet 7.5 mg (1/2 x 15 mg) PO 2000 #1 TAB 06/09/24 09/05/24 Rx sennosides 8.6 mg-docusate sodium 2 tab PO BID #1 TAB 06/09/24 Unknown Rx 50 mg tablet (Stimulant Laxative Plus) cholecalciferol (vitamin D3) 25 50 mcg PO DAILY supplement 09/05/24 09/05/24 History mcg (1,000 unit) capsule furosemide 40 mg tablet 40 mg PO Q OTHER DAY 09/05/24 09/05/24 History lacosamide 100 mg tablet 100 mg PO BID 09/05/24 09/05/24 History benzonatate 100 mg capsule 100 mg PO TID 09/06/24 Unknown History carvedilol 6.25 mg tablet 6.25 mg PO Q12H 09/28/24 Unknown History gabapentin 300 mg capsule 300 mg PO TID 09/28/24 Unknown History guaifenesin 600 mg tablet, 600 mg PO BID 09/28/24 Unknown History extended release 12 hr multivitamin 1 tab PO DAILY 09/28/24 Unknown History prednisone 20 mg tablet 40 mg PO DAILY 09/28/24 Unknown History zinc gluconate 50 mg tablet 50 mg PO DAILY 09/28/24 Unknown History zolpidem 5 mg tablet 10 mg PO QHS 09/28/24 Unknown History Allergy/AdvReac Type Severity Reaction Status Date / Time cefazolin (From Kefzol) Allergy Severe hives/difficulty Verified 09/06/24 07:54 swallowing ibuprofen Allergy Unknown Rash Verified 09/06/24 07:54 peanut Allergy Anaphylaxis Verified 09/06/24 07:54 Sulfa (Sulfonamide Allergy Unknown Verified 09/06/24 07:54 Antibiotics) sulfamethoxazole (From Allergy Other Verified 09/06/24 07:54 Bactrim) trimethoprim (From Bactrim) Allergy Other Verified 09/06/24 07:54 Family History Mother Cancer uterine Father No problems noted. Surgical History History of esophagogastroduodenoscopy (EGD) Hx of colonoscopy Hx of left cataract extraction History of dental surgery History of open reduction and internal fixation (ORIF) procedure History of cardiac catheterization Hx laparoscopic cholecystectomy H/O shoulder replacement History of left heart catheterization (08/01/22) History of dilatation and curettage History of hysteroscopy History of bilateral knee replacement History of herniorrhaphy Status post debridement History of open reduction and internal fixation (ORIF) procedure H/O hemorrhoidectomy History of gastric bypass Social History household members: other details: She has a roomate housing: house number of children: 1 current occupational status: retired pets and animals: Yes pets and animals: dog(s) Smoking Status: Never smoker alcohol intake: never substance use type: does not use caffeine: Yes Type: coffee Number of servings: 3 ROS ROS Narrative Admission Review of Systems: CONSTITUTIONAL: No weight loss, fever, chills, + weakness or fatigue. HEENT: Eyes: No visual loss, blurred vision, double vision or yellow sclerae. Ears, Nose, Throat: No hearing loss, sneezing, congestion, runny nose or sore throat. SKIN: No rash or itching, lesions, wounds. CARDIOVASCULAR: No chest pain, chest pressure or chest discomfort, palpitations, edema, orthopnea, syncopal events. RESPIRATORY: No shortness of breath, cough or sputum, wheezing, hemoptysis. GASTROINTESTINAL: + Decreased appetite. Occasional nausea but no emesis. No marked constipation, diarrhea, abdominal pain, melena, BRBPR. GENITOURINARY: + Mildly decreased urine output, foul odor. No dysuria, frequency, urgency or retention. NEUROLOGICAL: + Confusion, generalized weakness. No headache, dizziness, syncope, paralysis, ataxia, numbness or tingling in the extremities, focal weakness, change in bowel or bladder control, seizure. MUSCULOSKELETAL: + muscle, back pain, joint pain or stiffness. HEMATOLOGIC: + Chronic anemia, easy bleeding/bruising. LYMPHATICS: No enlarged nodes. No history of splenectomy. PSYCHIATRIC: + History of anxiety and depression. ENDOCRINOLOGIC: No reports of sweating, cold or heat intolerance. No polyuria or polydipsia. ALLERGIES: + History of anaphylaxis. Vital Signs Vital Signs Vital Signs: 09/28/24 13:11 09/28/24 17:00 09/28/24 19:00 Temperature 98 F Temperature Source Temporal Pulse Rate 100 83 96 Respiratory Rate 16 21 H 23 H Blood Pressure 109/50 L 102/81 H Blood Pressure Mean 69 88 Pulse Ox 100 96 98 Oxygen Delivery Method Room Air Room Air 09/28/24 19:17 Temperature Temperature Source Pulse Rate 94 Respiratory Rate 13 Blood Pressure Blood Pressure Mean Pulse Ox Oxygen Delivery Method Physical Exam Narrative Physical Examination: General: Awake, alert, oriented to self, place, year, month but she second-guesses herself, remained present does report that she significantly improved since initial ED arrival, encephalopathy is notably lessened. Skin: Normal color, normal turgor, no icterus, no cyanosis except for occasional stage ecchymoses, abrasion, bilateral lower extremity mild venous stasis disease, lymphedema evident, right lower extremity skin graft and donor site healing well. HEENT: AT/NC, EOMI, PERRLA, dry MM, no discerned carotid bruits, difficult to discern JVD given very thickened neck. Lungs: Diminished, distant breath sounds likely secondary to habitus, no evidence of any distress, no rales, ronchi or wheezing. Heart: Irregular, rate controlled; no gallop, rub audible. Abdomen: Soft, morbidly obese, no discomfort with palpation, distant BS, difficult to discern distention HSM given habitus. Extremities: No cyanosis, c no clubbing, see skin, chronic bilateral lower extremity lymphedema evident. Neurological: Patient awake, alert, oriented as noted, improving since initial ED arrival, cognitive function per discussion with patient and family likely nearing baseline intact as had been significantly encephalopathic upon initial arrival, pupils equally reactive to light and accommodation, cranial nerves gross normal, moving all 4 extremities, no focal deficits, strength severely globally decreased Psychiatric: Affect appears flat, fatigued, no acute evidence of depressive or anxiety feelings but does have underlying psychiatric history. Results Lab / Micro Data 09/28/24 17:51 09/28/24 17:51 Labs: Laboratory Results - last 24 hr 09/28/24 17:51: WBC 7.6, RBC 2.88 L, Hgb 9.2 L, Hct 30.0 L, MCV 104.2 H, MCH 31.9, MCHC 30.7 L, RDW Std Deviation 58.2 H, RDW Coeff of Parris 15.5 H, Plt Count 206, MPV 13.2 H, Immature Gran % (Auto) 0.400, Neut % (Auto) 66.9, Lymph % (Auto) 20.1, Cascade % (Auto) 8.7, Eos % (Auto) 3.6, Baso % (Auto) 0.3, Absolute Neuts (auto) 5.1, Absolute Lymphs (auto) 1.52, Nucleated RBC % 0, Sodium 139, Potassium 6.0 H*, Chloride 113 H, Carbon Dioxide 11.0 L, Anion Gap 15, BUN 111 H*, Creatinine 4.15 H, Est GFR (MDRD) Non-Af 10 L, BUN/Creatinine Ratio 26.7 H, Glucose 129 H, Lactic Acid < 1.0, Calcium 7.9, Magnesium 3.1 H, Total Bilirubin 0.20, AST 289 H, ALT 351 H, Alkaline Phosphatase 130 H, Troponin T High Sens 44 H, Total Protein 5.9, Albumin 3.1 L, Globulin 2.7, Albumin/Globulin Ratio 1.1, Lipase 54 09/28/24 18:56: Total Creatine Kinase 27 Imaging Radiology Impression Knee X-Ray 09/28/24 15:30 IMPRESSION: No obvious acute fracture. Reading Location: [facility] Brain CT 09/28/24 17:00 IMPRESSION: No acute intracranial process. Consider MR if symptoms persist. Reading Location: [facility] Knee X-Ray 09/28/24 17:05 IMPRESSION: No obvious acute fracture. Reading Location: [facility] Assessment & Plan Assessment/Plan (1) JOSE (acute kidney injury): PLAN: Plan The patient is an 84 y/o F w/ PMHx: PAF, COPD, Anxiety and depression, Morbid obesity, Seizure disorder, GERD, HTN, HLD, CKD stage III unclear subtype versus Stage IV, Chronic macrocytic anemia/Fe deficiency anemia, TADEO on CPAP, Hx VTE (DVT, PE), Hypothyroidism, Chronic lymphedema, HFpEF who presents to the [facility] ED on 09/28/2024 with history of generalized weakness and debility with bilateral knee pain however she recently became more weak and cannot even walk noting that her legs have been giving out with ongoing attempts for therapy twice daily but unfortunately given weakness and debility she had to have EMS called to be able to help her up off the floor and over the last several days she notes she has developed a fine essential tremor in addition to reportedly in triage having some difficulty with word finding and she does report that she is cognizant of this and has been ongoing for several days but eventually prompted eventual ED evaluation. #1. Acute Encephalopathy, debility, weakness, fatigue and malaise with Adult FTT suspected secondary to metabolic derangements, JOSE on CKD on CKD stage III unclear subtype versus stage IV and concurrent Hyperkalemia: Secondary to poor intake coupled with nephrotoxic regimen. Admission BUN/Cr 111/4.15, GFR 10, prior baseline creatinine noted to be primarily 1.5-2.0, most recently 08/22/2024 creatinine 1.86, notable rise. Will admit to PCU, will judiciously hydrate specially given underlying HFpEF history, hold nephrotoxic medications and repeat chemistry in AM. Will obtain FeNa assessment and request renal US. Nephrology consulted. Will continue to treat hyperkalemic presentation concurrently as noted. PT/OT/CM consulted for discharge planning. #2. Hyperkalemia with associated EKG changes: Admission potassium 6.0, not noted to be hemolyzed, administered hyperkalemic protocol in the ED with insulin, calcium gluconate, albuterol, will also administer lower dose Kayexalate and continue to trend closely BMP to ensure not rising, will repeat hyperkalemic protocol as needed, maintain on telemetry. #3. Acute transaminitis: Suspected secondary to severe dehydration with acute presentation as noted #1, will continue treatments as noted above, temporarily hold statin, repeat CMP in AM. #4. HFpEF: Most recently noted ECHO 05/12/24 with normal LV size/thickness, normal global systolic function, mild hypokinesis inferior wall, EF normal, diastolic function normal, no marked valvular heart disease, PASP not able to be estimated at that time, inferior vena cava normal size. Will continue Eliquis regimen with renal dosing as needed, temporally holding statin therapy given elevated LFTs however and if they do not rise further low threshold to add, will continue Coreg, holding diuretic, currently's does not appear to be on JEANCARLOS inhibitor/ARB with underlying renal disease. Closely monitor for overload given usage of IV fluids given #1, #2. #5. PAF: Will continue patient home Coreg and Eliquis regimen, currently in the ED patient is rate controlled in atrial fibrillation. She notes following with Dr. Jackson outpatient. #6. Chronic macrocytic anemia/Fe deficiency: Admission hemoglobin 9.2, MCV 104.2, baseline hemoglobin noted to be primarily 8-9, stable, continue to trend, continue home iron supplementation. #7. Recent RLE skin graft and the right thigh donor site secondary to history of recent chronic right lower extremity wound: Following w/ Dr. Lomax, most recent office visit noted 09/20/2024, will continue Aquaphor to the right lower extremity and thigh twice daily, will avoid dressings over the healed areas, will continue to use compression twice daily and encourage continued follow-up as previously requested in 3 weeks from her most recent visit. #8. Chronic COPD: Noted in previous chart history, per current list does not appear to to be on any chronic inhaler regimen, if necessary will add, the interim will maintain on PRN albuterol, HOB, IS parameters. #9. Anxiety and depression: Will continue psychiatric regimen with hold/adjustments for sedated regimen, acute kidney injury. #10. Seizure disorder: Will continue patient home antiepileptic regimen with adjustments as needed given acute kidney injury and hyperkalemia. #11. History of VTE: Patient status post history DVT, PE, continued on Eliquis regimen as noted with adjustments as needed per pharmacy given JOSE. #12. Hypothyroidism: Will continue patient on levothyroxine regimen. #13. Morbid Obesity: Weight loss and lifestyle changes encouraged. #14. Chronic bilateral lower extremity edema: Encourage elevation, will continue SCDs, continue treatment and care given recent right lower extremity skin graft/thigh donor site per Dr. Lomax as noted secondary to history of previous right lower extremity chronic wound. #15. GERD: Likely patient on PPI. #16. TADEO: Per record patient has not been using since gastric bypass, clarified to be certain. #17. DVT prophylaxis: Will continue patient home Eliquis regimen with dose adjustments as needed given JOSE presentation. #18. CODE status: Patient HCPOA is her roommate and friend who is present and living will is currently in place. Discussed CODE status at length including difference between FULL code, DNR-CCA and DNR-CC status. Following discussions about the differences in these status, requested DNR-CCA, no intubation status. Advanced Care Planning Face to Face Time: 16 minutes. Charges/Coding Visit Charges Inpatient E&M: 15781 Init Hosp L3 Procedures Hospitalists Procedures: 56663 Advncd Care Plan 30 Min
--- NOTE | 2024-09-28 20:05 | US_ITS ---
PROCEDURE: KIDNEY AND BLADDER 09/28/2024 REASON FOR EXAM: JOSE ON CKD TECHNIQUE: KIDNEY AND BLADDER COMPARISON: CT abdomen pelvis 06/07/23 FINDINGS: Kidneys: Normal renal sizes, parenchymal thicknesses, and echotextures. [employer]: None. Cysts or Masses: Bilateral renal cysts. No large solid renal mass. RIGHT Kidney Size: 9.8 x 4.1 x 4.1 cm Volume: 86 mL Parenchymal Thickness: 1.3 cm (>14mm is normal) Cortical Thickness (if discernible): N/A (>6mm is normal) LEFT Kidney Size: 10.7 x 3.9 x 4.8 cm Volume: 106 mL Parenchymal Thickness: 1.4 cm (>14mm is normal) Cortical Thickness (if discernible): n/a (>6mm is normal) US/Kidney and Bladder IMPRESSION: NORMAL RENAL ULTRASOUND. Reading Location: [id number]
[2024-09-28] MEDS: Calcium Gluconate IV 3 GM in Syringe 1 EACH IV (20:58)
[2024-09-28] MEDS: Insulin Lispro 10 UNIT in Syringe 0 ML 6 UNIT IV (20:59)
[2024-09-28 21:11] LABS: Red Blood Cells-Urine 0-5 SEEN /hpf (0-5); Squamous Epithelial Cells - UA 0-5 SEEN /hpf (5-10)
[2024-09-28 21:12] LABS: Creatinine, Urine (random) 34.40 mg/dL (28.00-217.00)
[2024-09-28] MEDS: Sodium Bicarbonate 150 MEQ in Dextrose 5%-Water (1000mL Bag) 1,000 ML 250 MEQ IV (21:29)
--- OUTSIDE RECORDS SUMMARY | 2024-09-28 22:56 | XMS RPT_ITS | CCD ---
Author Organization [facility] Care Team Providers Care Portal Administrator Name Role Phone Lizy Capone MD Primary Care Provider Dr. Lizy Capone Primary Care Provider Dr. Lizy Capone Referring Provider [phone] Dr. Norberto Jackson Attending Provider [phone] Lizy Capone MD Primary Care Provider Dr. Lizy Capone Primary Care Provider [phone] Dr. Norberto Jackson Attending Provider [phone] Dr. Lizy Capone Referring Provider [phone] Dr. Russell Gonzalez Attending Provider [phone] Lizy Capone MD Primary Care Provider Dr. Lizy Capone Primary Care Provider Dr. Russell Gonazlez Referring Provider [phone] RYAN Contreras Attending Provider Dr. Norberto Jackson Attending Provider [phone] Lizy Capone MD Primary Care Provider Dr. Lizy Capone Primary Care Provider Dr. Lizy Capone Referring Provider [phone] Dr. Russell Gonzalez Attending Provider [phone] Dr. Russell Gonzalez Referring Provider [phone] Danuta BELLAMY PARonald Helms Attending Provider Dr. Norberto Jackson Attending Provider [phone] Tatiana Olson Attending Provider Unavailable Dr. Lizy Capone Primary Care Provider Dr. Lizy Capone Referring Provider Manuel, Dr. Thornton Attending Provider [phone] Lizy Capone Primary Care Provider Dr. Lizy Capone Referring Provider Manuel, Dr. Thornton Attending Provider [phone] Lizy Capone Primary Care Provider Estelita, Dr. Zhu Referring Provider Manuel, Dr. Thornton Attending Provider [phone] Manuel, Dr. Thornton Other Provider Lake HOUSEKEEPER NANNY, HOUSEKEEPER NANNY-C Jas Dickey Attending Provider Geovani HOUSEKEEPER NANNY, HOUSEKEEPER NANNY-C Maria Teresa Attending Provider Dr. Judson Toney Emergency Provider Russell, HOUSEKEEPER NANNY-C Miryam Primary Care Provider Dr. Ralph Wheeler Admit Provider UnavailDr. Ralph Barksdale Other Provider UnavailDr. Ralph Felix Attending Provider Unavailable Dr. Ralph Haynes Other Provider Unavailable Lizy Capone MD Primary Care Provider DELGADO, ROQUE Attending Unavailable JUAN DANIEL, ROQUE Referring Unavailable LIZY CAPONE Primary Care Unavailable JUAN DANIEL, ROQUE Attending Unavailable LIZY CAPONE Primary Care Unavailable LIZY CAPONE Primary Care Unavailable REBEKAH BOBO Attending Unavailab le LIZY CAPONE Primary Care Unavailable DELGADO, ROQUE Referring Unavailable DELGADO, ROQUE Attending Unavailable LIZY CAPONE Primary Care Unavailable DELGADO, ROQUE Attending Unavailable DELGADO, ROQUE Attending Unavailable LIZY CAPONE Primary Care Unavailable DELGADO, ROQUE Attending Unavailable THBRAD, KEYANA Referring Unavailable LIZY CAPONE Primary Care Unavailable YARI, KEYANA Attending Unavailable LIZY CAPONE Primary Care Unavailable REBEKAH BOOB Referring Unavailab le JUAN DANIEL ROQUE Attending Unavailable LIZY CAPONE Primary Care Unavailable REBEKAH BOBO Attending Unavailab LIZY Dia Primary Care Unavailable Tannf MARKET MANAGER.CJTateMiryam Unavailable Yeison MARKET MANAGER.JCMulugeta Unavailable PROVIDER, UNKNOWN Attending Unavailable PROVIDER, UNKNOWN Admitting Unavailable Tannf SINKER PULLER, [place] Primary Care Provider Manuel JACK, Norberto Raymundo Unavailable NICOL JUDGE Attending Unavailable ADITHYA HARRELL Referring Unavailable [facility], MIRYAM Primary Care Unavailable CONSULT, NEUROLOGY Consulting Unavailable KINDRA GANNON Admitting Unavailable [facility] HOUSEKEEPER NANNY-C, [place] Primary Care Provider Janine GUILLEN, Dr. Mari Cochran Attending Provide r Phuc JACK, Dr. Espinoza Emergency Provider Jone JACK, Dr. Menchaca Admit Provider Jone JACK, Dr. Menchaca Referring Provider Jone JACK, Dr. Menchaca Other Provider Amborcio JACK, Dr. Laughlin Other Provider Liberty JACK, Dr. Osorio Other Provider Breanna JACK, Dr. Brand Other Provider Dr. Dre White MD Other Provider Dr. Edgar Davies DO Other Provider Tobin JACK, Dr. Ralph Roy Other Provider Mony JACK, Dr. Summers Other Provider Jimena JACK, Dr. Mann Other Provider Joni JACK, Dr. Langley Other Provider Damion JACK, Dr. Lion Other Provider Dr. Kin Young MD Other Provider Justin JACK, Dr. Cruz Other Provider Griselda JACK, Dr. Feng Other Provider Fabián JACK, Dr. Peterson Other Provider Unavailjl Salcedo MD, Dr. Mcgovern Other Provider [phone] Gagan JACK, Dr. Singleton Other Provider Esthela JACK, Dr. Leija Other Provider Neda GUILLEN, Dr. Gaming Other Provider [phone] Millie JACK, Dr. Miller Other Provider Dez JACK, Dr. Contreras Other Provider David GUILLEN, Dr. Portillo Other Provider Robinson JACK, Dr. Mcpherson Other Provider Alvaro JACK, Dr. Nixon Other Provider Julio Cesar JACK, Dr. Haji Attending Provider Ivy JACK, Dr. Rossa Other Provider Unavailable Ken JACK, Dr. Carrillo Other Provider Dr. Naina Bello MD Other Provider Michael Johnston MD Other Provider Lucero MS, Mulugeta Other Provider Stepan JACK, Dr. Rolon Other Provider Noel JACK, Jae Other Provider TAYA MENCHACA MD Other Provider Adriana Germain MD Other Provider Milan JACK, Dr. Alex Other Provider Hipolito JACK, Nicho Other Provider Radha JACK, Minal Other Provider Adan JACK, Dr. Sequeira Attending Provider Adan JACK, Dr. Sequeira Referring Provider Ivy JACK, Dr. Rosas Attending Provider Unavaila Dr. Edgar Pizarro DO Attending Provider Julio Cesar JACK, Dr. Haji Other Provider Semenkunal GUILLEN, Dr. Mari Cochran Admit Provider Semenkunal DO, Dr. Mari Cochran Other Provider Anand BROWN, Christa Attending Provider Unavail able Gustavo Castorena MD Attending Provider Unavaila ble [facility] HOUSEKEEPER NANNY-C, Minna Attending Provider Kell JACK, Dr. Chen Attending Provider Gustavo Castorena MD Referring Provider Unavaila ble Le , Dr. Reaves Emergency Provider [phone] [facility] HOUSEKEEPER NANNY-C, [facility] Care Provider Semenkunal GUILLEN, Dr. Mari Cochran Attending Provide r Ken JACK, Dr. Carrillo Other Provider Dilcia GUILLEN, Dr. Reaves Attending Provider [facility] HOUSEKEEPER NANNY-C, [place] Referring Provider Dr. Gonzalo Lomax MD Attending Provider Dr. Gonzalo Lomax MD Referring Provider Dr. Gonzalo Lomax MD Other Provider Dr. Mehdi Womack MD Attending Provider [facility] Primary Care Unavailable Russell Gonzalez Attending Unavailable Sementi, Mari Cochran Referring Unavaila ble [facility] Primary Care Unavailable Gusatvo Chan Attending [facility]availabl e [facility] Sementi, Mari Cochran Attending Unavaila ble [facility], [facility] Care Unavailable Gustavo Chan Attending Unavailabl e [facility], [place] Referring Unavailable [facility], [place] Primary Care Unavailable Mehdi Womack Attending Unavailable [facility] Care Unavailable Semenkunal, Mari Cochran Consulting Unavaila ble Sementi, Mari Cochran Referring Unavaila ble Sementi, Mari Cochran Attending Unavaila ble Sementi, Mari Cochran Admitting [facility]availa ble [facility] Semenkunal, Mari Cochran Consulting Unavaila ble Sementi, Mari Cochran Attending Unavaila ble Sementi, Mari Cochran Admitting Unavaila ble Adithya Harrell Attending Unavailable Ambrocio, Jayaprakas Consulting Unavailable [facility] Unavailable Bernarda Becerril Admitting Unavailable Bernarda Becerril Referring Unavailable Devon Koenig Consulting Unavailable Sunday Carlos Consulting Unavailable Dre White Consulting Unavailable Edgar Davies Consulting Unavailable Ralph Rudd Consulting Unavailable Kristopher Sykes Consulting Unavailable Johnathan Hess Consulting Unavailable Korin Quinones Consulting UnavailAyad Neumann Consulting Unavailable Kin Young Consulting Unavailable Anthony Martinez Consulting Unavailable Ping Villalobos Consulting Unavailable Kristen Lockwood Consulting Unavailable Froilan Salcedo Consulting Unavailable Mani Farah Consulting Unavailable Heladio Proctor Consulting Unavailable Mekhi Red Consulting Unavailable Angela Pinto Consulting Unavailable Ben Garces Consulting Unavailable Bandar Hernandez Consulting Unavailable Ky Bowers Consulting Unavailable Hussain John Consulting Unavailable Bernarda Becerril Consulting Unavailable Ralph Haynes Consulting Unavailable Adeviri, Amir Consulting Unavailable Naina Bello Consulting Unavailable Michael Johnston Consulting Unavailable Mulugeta Barker Consulting Unavailable Gonzales Ying Consulting Unavailable Jae Cohen Consulting Unavailable TAYA MENCHACA Consulting Unavailable Adriana Germain Consulting Unavailable Abi Yates Consulting Unavailable Nicho Mcmillan Consulting Unavailable Minal Garcia Consulting Unavailable [facility] Unavailable Adeli, Amir Consulting Unavailable Sementi, Mari Cochran Attending Unavaila ble Sementi, Mari Cochran Admitting Unavaila ble [facility] Unavailable Ambrocio, Jayaprakas Attending Unavailable Ambrocio, Jayaprakas Referring Unavailable [facility] Unavailable Gustavo Chan Attending Unavailabl e [facility] Unavailable Gustavo Chan Attending Unavailabl e [facility] Unavailable SemenMari syed Attending Unavaila ble [facility] Care Unavailable Manuel, Norberto Referring Unavailable ManuelOrion huntril Attending Unavailable [facility] Primary Care Unavailable Jean Paul Ha Attending Unavailable [facility] Primary Care Unavailable Sislucille, Gonzalo Attending Unavailable Siska, Gonzalo Referring Unavailable Siska, Gonzalo Attending Unavailable [facility] Care Unavailable Siska, Gonzalo Referring Unavailable [facility] Care Unavailable Oleghe OLS, Efewongbe Attending Unavailabl e Oleghe OLS, Efewongbe Referring Unavailabl e [facility] Primary Care Unavailable Sislucille, Gonzalo Attending Unavailable Siska, Gonzalo Consulting Unavailable Siska, Goznalo Referring Unavailable [facility] Primary Care Unavailable Oleghe OLS, Efewongbe Attending Unavailabl e Oleghe OLS, Efewongbe Referring Unavailabl e [facility] Care Unavailable Oleghe OLS, Efewongbe Attending Unavailabl e [facility] Care Unavailable Oleevelynee OLS, Efewongbe Attending Unavailabl e [facility] Care Unavailable Mari Mehta Referring Unavaila ble Sementi, Mari Cochran Attending Unavaila ble Sementi, Mari Cochran Admitting Unavaila ble Bernarda Becerril Referring Unavailable Ambrocio, Jayaprakas Consulting Unavailable Edgar Davies Attending Unavailable [facility] Care Unavailable Bernarda Becerril Admitting Unavailable Devon Koenig Consulting Unavailable Sunday Carlos Consulting Unavailable Dre White Consulting Unavailable Edgar Davies Consulting Unavailable Ralph Rudd Consulting Unavailable Kristopher Sykes Consulting Unavailable Johnathan Hess Consulting Unavailable Korin Quinones Consulting Unavailab Ayad Traylor Consulting Unavailable Kin Young Consulting Unavailable Anthony Martinez Consulting Unavailable Ping Villalobos Consulting Unavailable AlKristen simon Consulting Unavailable Emanuel, Froilan Consulting Unavailable IrMani givens Consulting Unavailable Esthela, Heladio Consulting Unavailable Anastasiia Redkhdeep Consulting Unavailable Angela Pinto Consulting Unavailable Ben Garces Consulting Unavailable Bandar Hernandez Consulting Unavailable Ky Bowers Consulting Unavailable Hussain John Consulting Unavailable Bernarda Becerril Consulting Unavailable Ralph Haynes Consulting Unavailable Ralph Haynes Attending Unavailable Adithya Harrell Attending Unavailable Gerardo Rogers Consulting Unavailable ZhaNaina Consulting Unavailable Michael Johnston Consulting Unavailable Mulugeta Barker Consulting Unavailable Gonzales Ying Consulting Unavailable Jae Cohen Consulting Unavailable TAYA MENCHACA Consulting Unavailable Adriana Germain Consulting Unavailable Abi Yates Consulting Unavailable Nicho Mcmillan Consulting Unavailable Minal Garcia Consulting Unavailable Adithya Harrell Consulting Unavailable Bernarda Becerril Attending Unavailable [facility], [place] Primary Care Unavailable Allie Jacksonl Attending Unavailable [facility], Miryam Referring Unavailable [facility], Miryam Primary Care Unavailable Cherelle HOUSEKEEPER NANNY, Minna Attending Unavailable [facility], [place] Primary Care Unavailable Tannhof, Miryam Referring Unavailable Manuel, Norberto Attending Unavailable [facility], [place] Primary Care Unavailable Guido Castorenabe Attending Unavailable [facility], [place] Primary Care Unavailable Cherelle HOUSEKEEPER NANNY, Minna Attending Unavailable Siska, Gonzalo Attending Unavailable Tannhof, Miryam Referring Unavailable Tannho, Miryam Primary Care Unavailable Gerardo Rogers Consulting Unavailable Tannho, Miryam Primary Care Unavailable Siska, Gonzalo Attending Unavailable Siska, Gonzalo Referring Unavailable Siska, Gonzalo Consulting Unavailable Siska, Gonzalo Attending Unavailable Tannhof, Miryam Primary Care Unavailable Siska, Gonzalo Referring Unavailable Siska, Gonzalo Consulting Unavailable Siska, Gonzalo Attending Unavailable Tannhof, Miryam Primary Care Unavailable Siska, Gonzalo Referring Unavailable Siska, Gonzalo Attending Unavailable Tannho, Miryam Primary Care Unavailable Siska, Gonzalo Referring Unavailable Siska, Gonzalo Consulting Unavailable Siska, Gonzalo Attending Unavailable Tannhof, Miryam Primary Care Unavailable Siska, Gonzalo Consulting Unavailable Siska, Gonzalo Referring Unavailable Tannho, Miryam Primary Care Unavailable Oleghe OLS, Efewongbe Referring Unavailabl e Oleghe OLS, Efewongbe Attending Unavailabl e Tannhof, Miryam Primary Care Unavailable Tannhof, Miryam Attending Unavailable Tannhof, Miryam Referring Unavailable [place], Miryam Primary Care Unavailable Russell Gonzalez Attending Unavailable Manuel, [place] Referring Unavailable Tannho, [place] Primary Care Unavailable Nagajothi, Nagapradee Referring Unavailabl e Nagajothi, Nagapradee Attending Unavailabl e Tannhof, Miryam Primary Care Unavailable Christa Michel Attending Unavailable Tannho, [place] Primary Care Unavailable Siska, Gonzalo Consulting Unavailable Siska, Gonzalo Referring Unavailable Siska, Gonzalo Attending Unavailable Tannhof, Miryam Primary Care Unavailable Oleghe OLS, Efewongbe Attending Unavailabl e Tannhof, Miryam Primary Care Unavailable Oleghe OLS, Efewongbe Attending Unavailabl e Tannhof, Miryam Primary Care Unavailable Oleghe OLS, Efewongbe Attending Unavailabl e MICHAEL CARTER Attending Unavailable ELDERBROCK, LIZY D Primary Care Unavailable ELDERBROCK, LIZY D Referring Unavailable ELDERBROCK, LIZY D Primary Care Unavailable SELF Referring Unavailable ELDERBROCK, LIZY D Primary Care Unavailable DEACON VALDEZ Attending Unavailable TANNHOF, MIRYAM XIN Referring Unavailabl e ELDERBROCK, LIZY D Primary Care Unavailable ELDERELVISCK, LIZY D Attending Unavailable ELDERBROCK, LIZY D Primary Care Unavailable TANNHOF, MIRYAM LAUREN Attending Unavailabl e ELDERBROCK, LIZY D Primary Care Unavailable TANNHOF, MIRYAM LAUREN Attending Unavailabl e ELDERBROCK, LIZY D Primary Care Unavailable TANNHOF, MIRYAM IBANEZE Referring Unavailabl e ELDERBROCK, LIZY D Primary Care Unavailable TANNHOF, MIRYAM XIN Referring Unavailabl e ELDERBROCK, LIZY D Primary Care Unavailable STARR SOLANO Attending Unavail able ELDERBROCK, LIZY Missael Primary Care Unavailable TANNHOF, MIRYAM LAUREN Attending Unavailabl e SELF Referring Unavailable ELDERBROCK, LIZY D Primary Care Unavailable ELDERBROCK, LIZY Missael Attending Unavailable ELDERBROCK, LIZY Missael Primary Care Unavailable MICHAEL CARTER Referring Unavailable ELDERBROCK, LIZY Missael Primary Care Unavailable Janine GUILLEN, Dr. Mari Cochran Other Provider Dr. Jhonatan Maxwell DO Emergency Provider Dr. Michelle Gallardo MD Admit Provider [phone] Dr. Michelle Gallardo MD Attending Provider Allergies Allergy Classification Reported Allergen(s) Allergy Type Date of Onset Reaction(s) Facility (20 sources) Aspirin Drug Allergy 11-15-19 09 Intolerance [facility] (20 sources) ceFAZolin; Translations: [CEFAZOLIN SODIUM] Drug Allergy 08-10-19 19 Hives [facility] (20 sources) Ibuprofen; Translations: [IBUPROFEN] Drug Allergy 11-08-19 16 Rash [facility] Work Phone: (20 sources) Sulfamethoxazole / Trimethoprim; Translations: [SULFAMETHOXAZOLE-T RIMETHOPRIM] Drug All[facility] 07-[facility] (20 sources) Sulfonamides (Antibiotic); Translations: [SULFA (SULFONAMIDE ANTIBIOTICS)] Drug Allergy 07-24-19 17 Hives, Unknown [facility] (20 sources) Peanut Butter [Other] Propensity to adverse reactions 11-15-19 [facility] (20 sources) ceFAZolin Drug Allergy 08-07-19 Hives [facility] (20 sources) peanut allergenic extract; Translations: [PEANUT] Drug Allergy 08-07-19 22 Anaphylaxis [facility] (20 sources) Sulfamethoxazole Drug Allergy 08-07-19 Other [facility] (20 sources) Trimethoprim Drug Allergy 08-07-19 Other [facility] (18 sources) Sulfonamides (Antibiotic) Allergy to substance 12-20-19 Unknown [facility] (1 source) OTHER; Translations: [OTHER] Propensity to adverse reactions (disorder) 11-15-19 [facility] Other [facility] (1 source) Peanut oil Propensity to adverse reactions to drug 05-04-19 Anaphylaxis [facility] (1 source) ceFAZolin Drug Allergy 09-07-19 [facility] (1 source) Ibuprofen Drug Allergy 09-07-19 25 [facility] (1 source) peanut allergenic extract Drug Allergy 09-07-19 25 [facility] (1 source) Sulfamethoxazole Drug Allergy 09-07-19 [facility] (1 source) Sulfonamides (Antibiotic) Drug allergy (disorder) 09-07-19 [facility] (1 source) Trimethoprim Drug Allergy 09-07-19 [facility] Medications Current Medications Medication Drug Class(es) Dates Sig (Normalized) Sig (Original) acetaminophen 325 mg oral tablet (20 sources) Start: 06-09-2024 Start: 05-16-2024 End: 05-18-2024 take 650 mg by mouth every four hours as needed Start: 06-27-2022 End: 06-09-2024 take [address] [facility] twice daily acetaminophen (TYLENOL) 500 mg tablet Take 1,000 mg by mouth twice daily. Active Comment on above: Take 1,000 mg by nika twice daily. ALPRAZolam 0.5 mg disintegrating oral tablet (2 sources) Benzodiazepine Start: 06-04-2023 End: 06-13-2023 ALPRAZolam 0.5 mg dissolvable tablet Indications: Anxiety due to invasive procedure Bring to office for procedure. Do not take until instructed by clinical staff 2 tablet 0 06/04/2023 06/13/2023 Active Start: 06-04-2022 End: 06-04-2022 ALPRAZolam 0.5 mg dissolvabl e tablet Indications: ACUTE PROCEDURE-RELATED ANXIETY BRING 2 TABLETS TO PROCEDURE LOCATION ON THE DAY OF PROCEDURE, TO BE ADMINISTERED BY STAFF 4 tablet 0 06/04/2022 06/04/2022 Active Comment on above: BRING 2 TABLETS TO P ROCEDURE LOCATION ON THE DAY OF PROCEDURE, TO BE ADMINISTERED BY STAFF Bring to office for procedure. Do not take until instructed by clinical staff amoxicillin 875 mg / clavulanate 125 mg oral tablet (2 sources) Penicillin-class Antibacterial Start: End: take 1 tablet by mouth twice daily amoxicillin-clavula jas potassium (AUGMENTIN) 875-125 mg per tablet Indications: Lower respiratory infection Take 1 tablet by mouth two times a day for 5 days. 10 tablet 09/15/2024 09/20/2024 Active atorvastatin 40 mg oral tablet (20 sources) HMG-CoA Reductase Inhibitor Start: End: Start: 05-13-2024 End: 05-18-2024 azithromycin 250 mg oral tablet (2 sources) Macrolide Antimicrobial Start: 09-15-2024 End: 09-20-2024 take 2 tablets by mouth once daily, then take 1 tablet by mouth once daily azithromycin (ZITHROMAX) 250 mg tablet Indications: Lower respiratory infection Take 2 tablets by mouth once daily for 1 day, THEN 1 tablet once daily for 4 days. 6 tablet 09/15/2024 09/20/2024 Active benzonatate 100 mg oral capsule (17 sources) Non-narcotic Antitussive Start: 09-04-2024 End: 09-08-2024 Start: 04-15-2023 End: 06-02-2023 take 2 capsules by mouth every eight hours as needed benzonatate (TESSALON PERLES) 100 mg capsule Take 2 capsules by mouth three times a day as needed. 30 capsule 0 04/15/2023 06/02/2023 Discontinued Comment on above: Take 2 capsules by [facility] three times a day as needed. bisacodyl 10 mg rectal suppository (20 sources) Stimulant Laxative Start: 06-09-2024 End: 09-05-2024 Start: 05-05-2024 End: 05-18-2024 carvedilol 6.25 mg oral tablet (20 sources) alpha-Adrenergic Linda, beta-Adrenergic Linda Start: 09-28-2024 Start: 06-09-2024 End: 09-28-2024 Start: 05-18-2024 End: 09-05-2024 Start: 05-17-2024 End: 05-18-2024 Start: 05-11-2024 End: 05-17-2024 cholecalciferol 0.025 mg ora l capsule (20 sources) Vitamin D Start: 07-25-2021 End: 09-05-2024 Start: 04-29-2016 End: 09-05-2024 Start: 04-29-2016 End: 10-17-2019 take 2000 [IU] by mouth once daily Cholecalciferol (Vitamin D3) Discontinued 2000 UNIT PO DAILY April 29, 2016 12:00am October 17, 2019 12:07pm Comment on above: Take 2 tablets by [facility] once daily. ciprofloxacin 250 mg oral tablet (1 source) Quinolone Antimicrobial Start: 08-26-19 End: 09-02-19 take 1 tablet by mouth twice daily ciprofloxacin HCl (CIPRO) 250 mg tablet Take 1 tablet by mouth two times a day for 7 days. 14 tablet 08/25/2024 09/01/2024 Active clindamycin 300 mg oral capsule (1 source) Lincosamide Antibacterial Start: 06-05-19 End: 06-08-19 clindamycin (CLEOCIN) 300 mg capsule Indications: skin and skin structure infection Take 1 capsule by mouth three times daily for 3 days. Start 1 day prior to procedure. 9 capsule 1 06/04/2022 06/07/2022 Active Comment on above: Take 1 capsule by ga ut three times daily for 3 days. Start 1 day prior to procedure. COMPOUNDED PRESCRIPTION (20 sources) Start: 10-15-19 19 COMPOUNDED PRESCRIPTION Indications: Obesity, Class III, BMI 40-49.9 (morbid obesity) , Primary osteoarthritis of both knees Stair lift 1 Device 10/14/2018 Active Start: 10-14-2018 COMPOUNDED PRE SCRIPTION Indications: Obesity, Class III, BMI 40-49.9 (morbid obesity) (HCC) , Primary osteoarthritis of both knees Stair lift 1 Device 10/14/2018 Active Start: 10-14-2018 COMPOUNDED PRE SCRIPTION Indications: Obesity, Class III, BMI 40-49.9 (morbid obesity) (HCC) , Primary osteoarthritis of both knees Stair lift 1 Device 0 10/14/2018 Active Comment on above: Stair lift Diaper,Brief, Adult,Disposable (DEPEND UNDERWEAR FOR WOMEN XL) (20 sources) Start: 02-17-2022 Diaper,Brief, Adult,Disposable (DEPEND UNDERWEAR FOR WOMEN XL) Indications: Female stress incontinence Use 5/day as needed for urinary incontinence 150 Each 11 02/17/2022 Active Comment on above: Use 5/day as needed for urinary incontinence docusate sodium 50 mg / sennosides, fdc 8.6 mg oral tablet (20 sources) Start: 03-01-2024 End: 06-09-2024 Start: 12-19-2021 End: 06-07-2023 Start: 05-06-2016 take 1 tablet by nika th once daily senna-docusate (SENNA-S) 8.6-50 mg per tablet Take 1 tablet by mouth once daily. 0 05/06/2016 Active Start: 04-29-2016 End: 10-17-2019 Start: 04-29-2016 End: 10-17-2019 take 2 tablets by mouth twice daily Sennosides-Docusate Sodium Discontinued 2 TABLET PO TWICE A DAY April 29, 2016 12:00am October 17, 2019 12:07pm Comment on above: Take 1 tablet by nika th once daily. enteric contrast (will be provided with radiology test) (1 source) Start: 07-18-2021 End: 07-18-2021 take 1 dose by mouth once, then take 1 dose by mouth once enteric contrast (will be provided with radiology test) Take 1 Each by mouth one time only for [address] ABD/PEL WO Routine order Administer, As Directed One Time Only, via Oral, Rectal, both Oral and Rectal, Enteric Tube, Stoma or Indwelling Catheter, Enteric Contrast as designated per enteric contrast guidelines 1 Each 0 07/18/2021 07/18/2021 Active Comment on above: Take 1 Each by mouth one time only for [address] ABD/PEL WO Routine order Administer, As Directed One Time Only, via Oral, Rectal, both Oral and Rectal, Enteric Tube, Stoma or Indwelling Catheter, Enteric Contrast as designated per enteric contrast guidelines ferrous sulfate 325 mg oral tablet (20 sources) Start: 09-05-2024 take 1 tablet by mouth once daily ferrous sulfate 325 mg (65 mg iron) tablet Take 1 tablet by mouth once daily. 90 tablet 09/05/2024 Active Start: 05-18-2024 Start: 03-01-2024 End: 09-05-2024 take 1 tablet by mouth once daily ferrous sulfate 325 mg (65 mg iron) tablet Take 325 mg by mouth once daily. 03/01/2024 09/05/2024 Discontinued Start: 04-14-2016 End: 04-29-2016 Start: 04-14-2016 End: 04-29-2016 fluorometholone 1 mg/ml opht halmic suspension (19 sources) Corticosteroid Start: 02-15-2024 gabapentin 300 mg oral capsu le (20 sources) Anti-epileptic Agent Start: 09-22-2024 End: 03-21-2025 Start: 11-28-2021 End: 08-22-2024 Start: 08-06-2021 End: 06-27-2022 Start: 08-06-2021 End: 06-27-2022 take 300 mg by mouth three times daily Gabapentin Discontinued 300 MG PO THREE TIMES A DAY December 19, 2021 8:27am June 27, 2022 9:44am Start: 07-16-2021 End: 12-19-2021 take 1 capsule by mouth three times daily gabapentin (NEURONTIN) 100 mg capsule Indications: Upper back pain Take 1 capsule by mouth three times daily for 90 days. 90 capsule 2 07/16/2021 09/19/2021 Discontinued Comment on above: Take 1 capsule by mo ut three times daily for 90 days. Take 2 capsules by m out three times daily for 30 days. Take one pill 3 time s per day Take 1 capsule by mo ut three times daily for 90 days. Take one pill 3 times per day Do not start before May 08, 2022. Take 1 capsule by [facility] three times daily for 180 days. Take one pill 3 times per day Take 1 capsule by [facility] three times a day for 180 days. Take one pill 3 times per day glucosamine 500 bv-hhflkkdmt-rqohfmce comp 400 mg-D3 667 unit-C-Mn cap (20 sources) Start: 10-17-2019 take 1 capsule by mouth three times daily glucosamine 500 wc-rkjsttnws-wdscrsm n comp 400 mg-D3 667 unit-C-Mn cap Active 1 CAP PO THREE TIMES A DAY October 17, 2019 12:03pm Start: 10-17-2019 take 1 capsule by [facility] three times daily glucosamine 500 gf-eqrkmxdwn-njqamstn comp 400 mg-D3 667 unit-C-Mn cap Active 1 CAP PO THREE TIMES A DAY October 17, 2019 1:03pm Start: 02-09-2018 End: 10-17-2019 glucosamine 500 mg-chondroit -collagen comp 400 mg-D3 667 unit-C-Mn cap Discontinued CAP PO February 09, 2018 6:50pm October 17, 2019 1:13pm Start: 02-09-2018 End: 10-17-2019 glucosamine 500 mg-chondroit -collagen comp 400 mg-D3 667 unit-C-Mn cap Discontinued CAP PO February 09, 2018 12:00am October 17, 2019 12:13pm Start: 02-09-2018 End: 10-17-2019 glucosamine 500 mg-chondroit -collagen comp 400 mg-D3 667 unit-C-Mn cap Discontinued CAP PO February 09, 2018 1:00am October 17, 2019 1:13pm 12 hr guaiFENesin 600 mg ext ended release oral tablet (5 sources) Start: 09-28-2024 Start: 09-15-2024 take 1 tablet by [facility] twice daily guaiFENesin (MUCINEX) 600 mg 12 hr tablet Indications: Lower respiratory infection Take 1 tablet by mouth two times a day. 20 tablet 09/15/2024 Active Start: 05-07-2024 End: 05-18-2024 take 200 mg by mouth every six hours as needed levonorgestrel 0.239256 mg/hr intrauterine system (20 sources) Progestin, Progestin-containing Intrauterine Device Start: 08-30-2024 levonorgestrel (MIRENA) 21 mcg/24hr (up to 8 yrs) 52 mg IUD 1 each by INTRAUTERINE route one time only for 1 dose. 1 each 08/30/2024 Active Start: 02-10-2018 End: 07-25-2021 Start: 02-10-2018 End: 07-25-2021 Levonorgestrel (Mirena) 20 m cg/24 hours (7 yrs) 52 mg intrauterine device Active 1 MCG INTRA-UTER ONCE July 24, 2021 11:00pm levothyroxine sodium 0.125 m g oral tablet (20 sources) l-Thyroxine Start: 05-12-2024 End: 05-17-2024 Start: 09-06-2020 End: 09-05-2024 Start: 02-09-2018 End: 07-25-2021 Comment on above: Take 1 tablet by nika th once daily. Take on empty stomach. For thyroid. magnesium hydroxide 80 mg/ml oral suspension (12 sources) Start: 08-22-2024 take 30 mL by mouth once daily as needed magnesium hydroxide (MOM) 400 mg/5 mL suspension Take 30 mL by mouth once daily as needed. 08/22/2024 Active mirtazapine 7.5 mg oral tablet (20 sources) Start: 09-05-2024 take 1 tablet by mouth once daily at bedtime mirtazapine (REMERON) 7.5 mg tablet Take 1 tablet by mouth daily at bedtime. 30 tablet 2 09/05/2024 Active Start: 06-09-2024 End: 09-05-2024 Multivitamin preparation (4 sources) Start: 06-27-2022 take 1 tablet by mouth once daily Multivitamin Active 1 TABLET PO DAILY June 26, 2022 11:00pm Start: 06-27-2022 take 1 tablet by nika th once daily Multivitamin Active 1 TABLET PO DAILY June 27, 2022 12:00am multivitamin tablet (1 source) Start: 09-22-2024 take 1 tablet by mouth once daily multivitamin tablet Take 1 tablet by mouth once daily. 90 tablet 3 09/22/2024 Active Multivitamin With Folic Acid (14 sources) Start: 04-14-2016 take 1 tablet by mouth once daily Multivitamin With Folic Acid Active 1 TABLET PO DAILY April 14, 2016 4:13pm Start: 04-14-2016 End: 12-19-2021 take 1 tablet by mouth once daily Multivitamin With Folic Acid Discontinued 1 TABLET PO DAILY April 14, 2016 12:00am December 19, 2021 8:34am Start: 04-14-2016 End: 12-19-2021 take 1 tablet by mouth once daily Multivitamin With Folic Acid Discontinued 1 TABLET PO DAILY April 14, 2016 1:00am December 19, 2021 9:34am Start: 04-14-2016 take 1 tablet by nika once daily Multivitamin With Folic Acid Active 1 TABLET PO DAILY April 14, 2016 1:00am nitroglycerin 0.4 mg sublingual tablet (20 sources) Nitrate Vasodilator Start: 06-27-2022 phenazopyridine hydrochloride 200 mg oral tablet (17 sources) Start: 09-26-2022 End: 10-06-2022 take 1 tablet by mouth three times daily as needed for pain phenazopyridine (PYRIDIUM) 200 mg tablet Indications: Female stress incontinence Take 1 tablet by mouth three times daily as needed for pain for up to 10 days. 30 tablet 3 09/26/2022 10/06/2022 Active Start: 06-27-2022 End: 06-07-2023 Start: 06-26-2022 End: 07-06-2022 take 2 tablets by mouth three times daily as needed phenazopyridine (PYRIDIUM) 100 mg tablet Indications: Dysuria Take 2 tablets by mouth three times daily as needed for up to 10 days. 30 tablet 0 06/26/2022 07/06/2022 Active Comment on above: Take [address] [facility] three times daily as needed for up to 10 days. Take 1 tablet by nika three times daily as needed for pain for up to 10 days. predniSONE 20 mg oral tablet (3 sources) Start: 09-28-2024 Start: 09-20-2024 take 2 tablets by mo ut once daily predniSONE (DELTASONE) 20 mg tablet Take 2 tablets by mouth once daily. 10 tablet 09/20/2024 Active Vitamin B Complex (20 sources) Start: 07-25-2021 take [address] [facility] once daily Vitamin B Complex Active 1 CAP PO DAILY July 25, 2021 11:21am Start: 07-25-2021 take 1 capsule by mo uth once daily Vitamin B Complex Active 1 CAP PO DAILY July 24, 2021 11:00pm Start: 07-25-2021 take 1 capsule by mo uth once daily Vitamin B Complex Active 1 CAP PO DAILY July 25, 2021 12:00am Start: 10-21-2017 End: 08-22-2024 take 1 tablet by mouth once daily vitamin b complex (B COMPLETE) tab Take 1 tablet by mouth once daily. 90 tablet 3 10/21/2017 08/22/2024 Discontinued (Course of therapy completed) Start: 10-21-2017 take 1 tablet by nika th once daily vitamin b complex (B COMPLETE) tab Take 1 tablet by mouth once daily. 90 tablet 3 10/21/2017 Active Comment on above: Take 1 tablet by nika th once daily. Zinc (20 sources) Start: 02-09-2018 take 50 mg by mouth once daily Zinc Active 50 MG PO DAILY February 09, 2018 6:51pm Start: 02-09-2018 take 50 mg by mouth once daily Zinc Active 50 MG PO DAILY February 09, 2018 12:00am Start: 02-09-2018 take 50 mg by mouth once daily Zinc Active 50 MG PO DAILY February 09, 2018 1:00am Start: 01-03-2017 End: 08-22-2024 take 1 tablet by mouth once daily Zinc 50 mg tab Take 1 tablet by mouth once daily. 30 tablet 11 01/03/2017 08/22/2024 Discontinued (Course of therapy completed) Start: 01-03-2017 take 1 tablet by nika th once daily Zinc 50 mg tab Take 1 tablet by mouth once daily. 30 tablet 11 01/03/2017 Active End: 07-16-2021 take 30 mg by mouth once daily zinc Take 30 mg by mout h once daily. 0 07/16/2021 Discontinued Comment on above: Take 1 tablet by nika th once daily. Take 30 mg by mouth once daily. zinc gluconate 50 mg oral ta blet (2 sources) Start: 09-28-2024 Start: 09-22-2024 take 1 tablet by nika th once daily Zinc Gluconate 50 mg tablet Take 1 tablet by mouth once daily. 90 tablet 3 09/22/2024 Active zolpidem tartrate 5 mg oral tablet (20 sources) gamma-Aminobutyric Acid-ergic Agonist Start: 07-04-2024 End: 12-14-2024 take 1 tablet by mouth at bedtime as needed zolpidem (AMBIEN) 10 mg Indications: Insomnia, unspecified type Take 1 tablet by mouth at bedtime as needed for up to 90 days. 30 tablet 2 09/15/2024 12/14/2024 Active Start: 06-14-2024 End: 09-28-2024 Start: 03-01-2024 End: 06-10-2024 Start: 01-09-2021 End: 07-01-2024 Comment on above: Take 1 tablet by nika th at bedtime as needed for up to 90 days. (20 sources) Start: 09-28-2024 Start: 06-09-2024 Start: 05-08-2024 End: 05-08-2024 Start: 05-06-2024 End: 05-07-2024 Start: 05-05-2024 End: 05-06-2024 take 2 g intravenously every six hours Start: 05-05-2024 End: 05-05-2024 Start: 05-05-2024 End: 05-05-2024 Start: 03-01-2024 End: 06-09-2024 Start: 06-27-2022 End: 06-09-2024 Start: 07-25-2021 End: 02-24-2024 Start: 10-17-2019 End: 06-09-2024 Start: 02-09-2018 End: 10-17-2019 Start: 02-09-2018 End: 02-24-2024 Start: 04-14-2016 End: 12-19-2021 Completed/Discontinued Medications Medication Drug Class(es) Dates Sig (Normalized) Sig (Original) 0.9% NaCl 10 mL flush (3 sources) Start: 11-16-2023 End: 11-16-2023 0.9% NaCl 10 mL flush Start: 07-15-2023 End: 07-15-2023 0.9% NaCl 10 mL flush albuterol 0.833 mg/ml / ipratropium bromide 0.167 mg/ml inhalation solution (1 source) Anticholinergic, beta2-Adrenergic Agonist Start: 05-04-2024 End: 05-18-2024 take 3 mL by inhalation every six hours as needed amLODIPine 5 mg oral tablet (20 sources) Dihydropyridine Calcium Channel Linda Start: 08-01-2022 End: 01-28-2024 Comment on above: Take by mouth. apixaban 2.5 mg oral tablet (20 sources) Factor Xa Inhibitor Start: 06-09-2024 End: 09-28-2024 Start: 05-17-2024 End: 09-05-2024 Start: 05-17-2024 End: 05-17-2024 ascorbic acid 500 mg oral ta blet (20 sources) Vitamin C Start: 03-01-2024 End: 06-09-2024 Start: 08-31-2016 End: 10-17-2019 Start: 04-14-2016 End: 04-29-2016 Start: 07-12-2008 End: 08-22-2024 ascorbic acid(VITAMIN C 500 MG TAB) Take one(1) tablet daily. 0 07/12/2008 08/22/2024 Discontinued (Course of therapy completed) End: 05-18-2024 Comment on above: Take one(1) tablet d aily. ascorbic acid 100 mg / bioti n 0.15 mg / calcium pantothenate 5 mg / folic acid 1 mg / niacin 20 mg / pyridoxine 10 mg / riboflavin 1.7 mg / thiamine mononitrate 1.5 mg / vitamin b12 0.006 mg oral capsule (1 source) Nicotinic Acid, Vitamin B12, Vitamin C Start: 05-18-2024 End: 05-18-2024 aspirin 81 mg chewable table t (20 sources) Platelet Aggregation Inhibitor, Nonsteroidal Anti-inflammatory Drug Start: 03-01-2024 End: 06-09-2024 Start: 03-06-2022 End: 08-22-2024 Comment on above: Take 81 mg by mouth once daily. 20 ml bupivacaine hydrochloride 7.5 mg/ml injection (3 sources) Amide Local Anesthetic Start: 11-16-2023 End: 11-16-2023 bupivacaine(PF) 0.75 % (7.5 mg/mL) 7.5 mg injection (MARCAINE PF) Start: 07-15-2023 End: 07-15-2023 bupivacaine(PF) 0.75 % (7.5 mg/mL) 7.5 mg injection (MARCAINE PF) calcium acetate 667 mg oral capsule (20 sources) Start: 04-14-2016 End: 09-22-2024 Comment on above: TAKE 1 CAPSULE BY [facility] THREE TIMES DAILY. calcium ascorbate 500 mg ora l tablet (20 sources) Start: 07-25-2021 End: 03-01-2024 calcium carbonate 500 mg birdie wable tablet (14 sources) Start: 03-01-2024 End: 06-09-2024 Start: 02-24-2024 End: 03-01-2024 calcium carbonate 1500 mg / cholecalciferol 0.01 mg oral capsule (20 sources) Vitamin D Start: 07-25-2021 End: 02-24-2024 Start: 07-25-2021 take 1 capsule by [facility] twice daily Calcium Carbonate-Vitamin D3 Active 1 CAP PO TWICE A DAY July 24, 2021 11:00pm Start: 10-21-2017 End: 08-22-2024 take 1 tablet by mouth twice daily at mealtime ejwyzxp-rkugckppb-katkayw D3 (CALCIUM 500+D) 500 mg(1,250mg) -200 unit per tablet Take 1 tablet by mouth twice daily with meals. 180 tablet 3 10/21/2017 08/22/2024 Discontinued (Course of therapy completed) Comment on above: Take 1 tablet by [facility] twice daily with meals. 10 ml calcium gluconate 100 mg/ml injection (3 sources) Start: 05-06-2024 End: 05-06-2024 Start: 05-06-2024 End: 05-06-2024 Start: 05-05-2024 End: 05-05-2024 cefTRIAXone 2000 mg injection (4 sources) Cephalosporin Antibacterial Start: 05-05-2024 End: 05-10-2024 take 2 g intravenously every twenty-four hours CENTRUM PERFORMANCE TAB (20 sources) Start: 01-24-2005 End: 08-22-2024 CENTRUM PERFORMANCE TAB Take one(1) tablet daily. 0 01/24/2005 08/22/2024 Discontinued (Course of therapy completed) Start: 01-24-2005 CENTRUM PERFOR ARIELLA TAB Take one(1) tablet daily. 0 01/24/2005 Active Comment on above: Take one(1) tablet d aily. chlorhexidine gluconate 1.2 mg/ml mouthwash (1 source) Start: End: 02-02-202 5 chondroitin sulfates 400 mg / glucosamine hydrochloride 500 mg oral capsule (20 sources) Start: 1 End: 5 take 1 capsule by mouth three times daily Glucosamine-Chondroi t-Vit C-Mn (GLUCOSAMINE CHONDROITIN MAXSTR) 500-400 mg cap Take 1 capsule by mouth three times daily. 90 capsule 11 11/22/2020 08/22/2024 Discontinued (Course of therapy completed) Comment on above: Take [address] [facility] three times daily. cyclobenzaprine hydrochloride 10 mg oral tablet (20 sources) Muscle Relaxant Start: 2 End: 5 Start: 04-26-2021 End: 08-13-2024 take 1 tablet by mouth three times daily as needed for muscle spasms cyclobenzaprine (FLEXERIL) 10 mg tablet Indications: Pleurodynia Take 1 tablet by mouth three times a day as needed for muscle spasm. 90 tablet 11 08/14/2023 08/13/2024 Active Comment on above: Take 1 tablet by nika three times daily as needed for muscle spasm. Take 1 tablet by nika three times a day as needed for muscle spasm. take 1 tablet by nika three times a day as needed for muscle spasm DAILY-LUISITO tablet (20 sources) Start: 12-14-2017 End: 08-22-2024 take 1 tablet by mouth once daily DAILY-LUISITO tablet TAKE 1 TABLET BY MOUTH ONCE DAILY. 30 tablet 11 12/14/2017 08/22/2024 Discontinued (Course of therapy completed) Start: 12-14-2017 take 1 tablet by nika once daily DAILY-LUISITO tablet TAKE 1 TABLET BY MOUTH ONCE DAILY. 30 tablet 11 12/14/2017 Active Comment on above: TAKE 1 TABLET BY NIKA ONCE DAILY. 1 ml dexamethasone phosphate 10 mg/ml injection (3 sources) Corticosteroid Start: 05-08-2024 End: 05-08-2024 Start: 05-08-2024 End: 05-09-2024 Start: 05-08-2024 End: 05-08-2024 12 hr dextromethorphan hydrobromide 30 mg / guaiFENesin 600 mg extended release oral tablet (9 sources) Uncompetitive C-otmkdc-I-aspartate Receptor Antagonist, Sigma-1 Agonist Start: 09-05-2024 End: 09-28-2024 Start: 08-22-2024 End: 09-05-2024 take 1 tablet by mouth every twelve hours as needed dextromethorphan-guaiFENesin (MUCINEX DM ) 30-600 mg per tablet Take 1 tablet by mouth two times a day as needed. 08/22/2024 09/05/2024 Discontinued diclofenac sodium 0.01 mg/mg topical gel (20 sources) Nonsteroidal Anti-inflammatory Drug Start: 06-27-2022 End: 06-07-2023 Diclofenac Sodium (Arthritis Pain (Diclofenac)) 1 % gel Discontinued 4 GM TOPICAL 4 TIMES DAILY October 03, 2022 9:09am June 07, 2023 11:26pm apply to single knee, ankle, foot; for foot includes sole/toes/top of foot Start: 06-26-2022 End: 06-07-2023 Comment on above: Apply 4 g to affecte d area four times daily. doxycycline monohydrate 100 mg oral capsule (17 sources) Tetracycline-class Drug Start: 09-04-2024 End: 09-28-2024 Start: 03-01-2024 End: 06-10-2024 Drug or medicament (substanc e) (1 source) Start: 05-06-2024 End: 05-07-2024 2 ml fentaNYL 0.05 mg/ml inj ection (3 sources) Opioid Agonist Start: 05-06-2024 End: 05-06-2024 Start: 05-05-2024 End: 05-05-2024 Start: 05-05-2024 End: 05-05-2024 furosemide 40 mg oral tablet (20 sources) Loop Diuretic Start: 06-09-2024 End: 09-05-2024 Start: 05-14-2024 End: 05-17-2024 Start: 05-10-2024 End: 05-13-2024 Start: 05-09-2024 End: 05-09-2024 Start: 05-08-2024 End: 05-08-2024 Start: 05-08-2024 End: 05-08-2024 Start: 12-22-2022 End: 08-22-2024 take 1 tablet by mouth once daily furosemide (LASIX) 40 mg tablet Indications: Leg swelling Take 1 tablet by mouth once daily. 90 tablet 1 01/28/2024 08/22/2024 Discontinued Start: 06-27-2022 End: 10-03-2022 Furosemide Discontinued 0 PO .COMPLEX June 27, 2022 9:41am October 03, 2022 9:41am Take 60 mg Mondays, 40 mg Wednesdays, 20 mg Fridays; take 40 mg all other days orally; Start: 03-06-2022 End: 06-09-2024 Start: 02-13-2022 End: 03-06-2022 Furosemide (Lasix) 40 mg tab let Discontinued 0 PO DAILY February 13, 2022 5:41pm March 06, 2022 10:05am 60 mg in the AM and 40 mg in the PM orally daily; Start: 12-19-2021 End: 01-14-2022 take 20 mg by mouth once daily Furosemide Discontinued 20 MG PO DAILY December 19, 2021 8:25am January 14, 2022 3:25pm Start: 08-06-2021 End: 03-06-2022 Start: 08-06-2021 End: 03-06-2022 Start: 07-25-2021 End: 08-06-2021 Start: 10-11-2020 End: 12-22-2022 take 1 tablet by mouth once daily furosemide (LASIX) 20 mg tablet Indications: Bilateral leg edema Take 1 tablet by mouth once daily. 30 tablet 11 10/11/2020 11/26/2021 Discontinued Comment on above: Take 1 tablet by nika th once daily. take 1 tablet by nika th every day GEMTESA 75 mg tablet (20 sources) Start: 12-10-2022 End: 08-22-2024 take 1 tablet by mouth once GEMTESA 75 mg tablet Take 1 tablet by mouth every afternoon. 12/10/2022 08/22/2024 Discontinued (Course of therapy completed) Start: 12-10-2022 take 1 tablet by mouth once GE MTESA 75 mg tablet Take 1 tablet by mouth every afternoon. 12/10/2022 Active Start: 12-10-2022 take 1 tablet by mouth once GE MTESA 75 mg tablet Take 1 tablet by mouth every afternoon. 0 12/10/2022 Active Comment on above: Take 1 tablet by nika th every afternoon. Xeabulpbxyu-Tukpfyvvv-Sqr C-Mn (GLUCOSAMINE CHONDROITIN MAXSTR) 500-400 mg cap (5 sources) Start : 11-22 take 1 capsule by mouth three times daily Glucosamine-Chond roit-Vit C-Mn (GLUCOSAMINE CHONDROITIN MAXSTR) 500-400 mg cap Take 1 capsule by mouth three times daily. 90 capsule 11 11/22/2020 Active Comment on above: Take [address] [facility] three times daily. 250 ml heparin sodium, porcine 100 unt/ml injection (1 source) Unfractionated Heparin, Anti-coagulant Start : 05-10 End: 05-10 1 ml hydrALAZINE hydrochloride 20 mg/ml injection (1 source) Arteriolar Vasodilator Start : 05-10 End: 05-18 take 5 mg intravenously every four hours as needed hydroCHLOROthiazide 12.5 mg / lisinopril 10 mg oral tablet (20 sources) Thiazide Diuretic, Angiotensin Converting Enzyme Inhibitor Start : 06-27 End: 06-27 take 1 tablet by mouth once daily Lisinopril-Hydroc hlorothiazide Discontinued 1 TABLET PO DAILY June 26, 2022 11:00pm June 27, 2022 9:55am Start: 12-19-2021 End: 05-18-2024 Start: 12-19-2021 End: 01-14-2022 take 1 tablet by mouth once daily Lisinopril-Hydrochlorothiazide Discontinued 1 TABLET PO DAILY December 18, 2021 11:00pm January 14, 2022 3:16pm Start: 04-14-2016 End: 08-22-2024 take 10-12.5 mg by mouth once lisinopril-hydroCHLOROth iazide (ZESTORETIC) 10-12.5 mg per tablet Indications: Essential hypertension, benign Take 1 tablet by mouth once daily. 90 tablet 3 07/22/2023 08/22/2024 Discontinued (Course of therapy completed) Start: 04-14-2016 End: 08-29-2021 Start: 04-14-2016 End: 08-29-2021 take 1 tablet by mouth once daily Lisinopril-Hydrochlorothiazide Discontinued 1 TABLET PO DAILY April 14, 2016 12:00am August 29, 2021 3:42pm Comment on above: Take 1 tablet by nika once daily. hydrocortisone 0.025 mg/mg topical ointment (20 sources) Corticosteroid Start: 03-01-2024 End: 06-09-2024 Start: 10-12-2017 End: 08-22-2024 hydrocortisone (ANUSOL-HC) 2 .5 % rectal cream 1 application by RECTAL route twice daily. 1 Tube 2 10/12/2017 08/22/2024 Discontinued (Course of therapy completed) Comment on above: 1 application by REC HILARIO route twice daily. hydrocortisone acetate 25 mg /ml / pramoxine hydrochloride 10 mg/ml rectal cream (20 sources) Corticosteroid Start: 10-17-2019 End: 06-09-2024 Start: 10-17-2019 Hydrocortisone -Pramoxine Active 1 APPLIC RC TWICE A DAY October 16, 2019 11:00pm iohexol 300 mg IV injection (OMNIPAQUE 300) (1 source) Start: 02-16-2023 End: 02-16-2023 iohexol 300 mg IV injection (OMNIPAQUE 300) 24 hr isosorbide mononitrate 30 mg extended release oral tablet (20 sources) Nitrate Vasodilator Start: 01-14-2022 End: 08-01-2022 Start: 01-14-2022 End: 06-27-2022 take 30 mg by mouth once daily Isosorbide Mononitrate Discontinued 30 MG PO DAILY 60 January 13, 2022 11:00pm June 27, 2022 11:09am lacosamide 100 mg oral table t (20 sources) Anti-epileptic Agent Start: 05-18-2024 End: 05-18-2024 Start: 05-18-2024 End: 03-04-2025 Start: 05-05-2024 End: 05-18-2024 take 100 mg intravenously every twelve hours levoFLOXacin 750 mg oral tablet (1 source) Quinolone Antimicrobial Start: 05-04-2024 End: 05-04-2024 take 750 mg nasogastric route every twenty-four hours 10 ml lidocaine hydrochloride 20 mg/ml injection (9 sources) Antiarrhythmic, Amide Local Anesthetic Start: 11-16-2023 End: 11-16-2023 lidocaine (PF) 20 mg/mL (2 %) 200 mg injection (XYLOCAINE) Start: 07-15-2023 End: 07-15-2023 lidocaine (PF) 20 mg/mL (2 % ) 200 mg injection (XYLOCAINE) Start: 05-18-2023 End: 05-18-2023 lidocaine (PF) 10 mg/mL (1 % ) 100 mg injection (XYLOCAINE) Start: 05-18-2023 End: 05-18-2023 lidocaine (PF) 20 mg/mL (2 % ) 200 mg injection (XYLOCAINE) Start: 02-16-2023 End: 02-16-2023 lidocaine (PF) 10 mg/mL (1 % ) 100 mg injection (XYLOCAINE) Start: 02-16-2023 End: 02-16-2023 lidocaine (PF) 20 mg/mL (2 % ) 200 mg injection (XYLOCAINE) Start: 08-13-2022 End: 08-13-2022 lidocaine (PF) 10 mg/mL (1 % ) 100 mg injection (XYLOCAINE) Start: 07-30-2022 End: 07-30-2022 lidocaine (PF) 10 mg/mL (1 % ) 100 mg injection (XYLOCAINE) lisinopril 10 mg oral tablet (10 sources) Angiotensin Converting Enzyme Inhibitor Start: 06-07-2023 End: 06-09-2024 1 ml LORazepam 2 mg/ml injection (1 source) Benzodiazepine Start: 05-06-2024 End: 05-06-2024 Magnesium (20 sources) Start: 01-03-2017 End: 08-22-2024 take 1 tablet by mouth once daily Magnesium 200 mg tab Take 200 mg by mouth once daily. 30 tablet 01/03/2017 08/22/2024 Discontinued (Course of therapy completed) Start: 01-03-2017 take 1 tablet by nika once daily Magnesium 200 mg tab Take 200 mg by mouth once daily. 30 tablet 11 01/03/2017 Active Comment on above: Take 200 mg by mouth once daily. magnesium oxide 200 mg oral tablet (20 sources) Start: 06-27-2022 End: 06-09-2024 Start: 07-25-2021 End: 06-27-2022 Start: 07-25-2021 End: 12-19-2021 take 500 mg by mouth once daily Magnesium Oxide Discontinued 500 MG PO DAILY July 24, 2021 11:00pm December 19, 2021 8:37am Start: 08-31-2016 End: 10-17-2019 Start: 08-31-2016 End: 10-17-2019 take 500 mg by mouth once daily Magnesium Oxide Discontinued 500 MG PO DAILY February 09, 2018 12:00am October 17, 2019 12:07pm MAGNESIUM OXIDE/MAGNESIUM (MAGNESIUM, OXIDE/AA CHELATE, ORAL) (1 source) End: 07-16-2021 take 500 mg by mouth once daily MAGNESIUM OXIDE/MAGNESIUM (MAGNESIUM, OXIDE/AA CHELATE, ORAL) Take 500 mg by mouth once daily. 0 07/16/2021 Discontinued Comment on above: Take 500 mg by mouth once daily. 50 ml magnesium sulfate 80 mg/ml injection (2 sources) Start: 05-11-2024 End: 05-11-2024 Start: 05-05-2024 End: 05-05-2024 melatonin 3 mg oral capsule (7 sources) Start: 02-24-2024 End: 03-01-2024 1 ml methylPREDNISolone acetate 40 mg/ml injection (5 sources) Corticosteroid Start: 11-16-2023 End: 11-16-2023 methylPREDNISolone acetate 40 mg injection (DEPO-Medrol) Start: 07-15-2023 End: 07-15-2023 methylPREDNISolone acetate 4 0 mg injection (DEPO-Medrol) Start: 05-18-2023 End: 05-18-2023 methylPREDNISolone acetate 4 0 mg injection (DEPO-Medrol) Start: 02-16-2023 End: 02-16-2023 methylPREDNISolone acetate 4 0 mg injection (DEPO-Medrol) 24 hr metoprolol succinate 5 0 mg extended release oral tablet (20 sources) beta-Adrenergic Linda Start: 01-14-2022 End: 06-07-2023 Start: 08-29-2021 End: 08-22-2024 take 1 tablet by mouth every twenty-four hours metoprolol succinate ER (TOPROL XL) 50 mg 24 hr tablet Take by mouth. 08/29/2021 08/22/2024 Discontinued (Course of therapy completed) Start: 08-29-2021 End: 12-19-2021 Comment on above: Take by mouth. 24 hr mirabegron 25 mg extended release oral tablet (12 sources) beta3-Adrenergic Agonist Start: End: take 1 tablet by mouth once daily mirabegron (MYRBETRIQ) 25 mg Tb24 Indications: Urge urinary incontinence Take 1 tablet by mouth once daily. 30 tablet 5 06/30/2022 12/22/2022 Discontinued Comment on above: Take 1 tablet by [facility] once daily. miSOPROStol 0.2 mg oral tablet (20 sources) Prostaglandin E1 Analog Start: End: miSOPROStol (CYTOTEC) 200 mcg tablet Take two tablets PO night before procedure and two tablets morning of procedure 4 tablet 0 06/14/2021 07/16/2021 Discontinued Start: 12-31-2017 End: 02-09-2018 Start: 12-31-2017 End: 02-09-2018 Misoprostol Discontinued 200 MCG PO NEEDED December 30, 2017 11:00pm February 09, 2018 5:53pm Comment on above: Take two tablets PO night before procedure and two tablets morning of procedure nitrofurantoin, macrocrystal s 25 mg / nitrofurantoin, monohydrate 75 mg oral capsule (16 sources) Nitrofuran Antibacterial Start: 06-26-2022 End: 10-03-2022 Comment on above: Take 1 capsule by [facility] twice daily with meals for 7 days. omeprazole 20 mg delayed rel ease oral capsule (20 sources) Proton Pump Inhibitor Start: 11-13-2017 End: 08-22-2024 Comment on above: Take 1 capsule by [facility] once daily. TAKE 1 CAPSULE BY [facility] ONCE DAILY ondansetron 4 mg disintegrat ing oral tablet (9 sources) Serotonin-3 Receptor Antagonist Start: 09-05-2024 End: 09-28-2024 Start: 08-22-2024 End: 09-05-2024 take 1 tablet by mouth every four hours as needed ondansetron (ZOFRAN) 4 mg tablet Take 1 tablet by mouth every 4 hours as needed for nausea/vomiting. 08/22/2024 09/05/2024 Discontinued oxyCODONE hydrochloride 5 mg oral tablet (20 sources) Opioid Agonist Start: 02-24-2024 End: 09-28-2024 pantoprazole 40 mg delayed r elease oral tablet (20 sources) Proton Pump Inhibitor Start: 06-09-2024 End: 09-28-2024 Start: 04-14-2016 End: 04-30-2016 phenol 14 mg/ml mucosal spray (1 source) Start: 05-11-2024 End: 05-18-2024 polyethylene glycol 3350 23347 mg powder for oral solution (20 sources) Osmotic Laxative Start: 07-22-2023 End: 08-22-2024 polyethylene glycol 3350 (MIRALAX) 17 gram/dose powder Indications: Chronic constipation Take once daily 850 g 11 07/22/2023 08/22/2024 Discontinued (Duplicate Entry) Start: 06-09-2023 Comment on above: Take by mouth once d aily. Dissolve dose in 4 - 8 ounces of liquid and take as directed. Take once daily polysaccharide iron complex 150 mg oral capsule (20 sources) Start: 07-25-2021 End: 08-06-2021 Start: 08-31-2016 End: 10-17-2019 take 325 mg by mouth once daily at mealtime Polysaccharide Iron Complex Discontinued 325 MG PO DAILY WITH MEALS August 31, 2016 1:03pm October 17, 2019 12:07pm Start: 04-29-2016 End: 07-16-2021 Comment on above: TAKE 1 CAPSULE BY [facility] ONCE DAILY. potassium bicarbonate 20 meq effervescent oral tablet (3 sources) Start: 05-11-2024 End: 05-11-2024 Start: 05-07-2024 End: 05-08-2024 100 ml propofol 10 mg/ml inj ection (2 sources) General Anesthetic Start: 05-07-2024 End: 05-08-2024 Start: 05-04-2024 End: 05-05-2024 racepinephrine 22.5 mg/ml inhalation solution (2 sources) Start: 05-08-2024 End: 05-08-2024 rivaroxaban 10 mg oral tablet (20 sources) Factor Xa Inhibitor Start: 04-14-2016 End: 04-29-2016 sennosides, fdc 8.6 mg oral tablet (2 sources) Start: 05-06-2024 End: 05-18-2024 take 8.6 mg nasogastric route every twelve hours as needed 20 ml sodium chloride 9 mg/ml injection (3 sources) Start: 05-06-2024 End: 05-06-2024 Start: 05-06-2024 End: 05-07-2024 Start: 05-05-2024 End: 05-07-2024 temazepam 15 mg oral capsule (20 sources) Benzodiazepine Start: 08-29-2013 End: 02-09-2018 Start: 08-29-2013 End: 02-09-2018 take 1 tablet by mouth at bedtime as needed Temazepam Discontinued 1 TABLET PO AT BEDTIME NEEDED August 28, 2013 11:00pm February 09, 2018 5:53pm 24 hr tolterodine tartrate 4 mg extended release oral capsule (20 sources) Cholinergic Muscarinic Antagonist Start: 10-17-2019 End: 08-22-2024 Start: 04-14-2016 End: 02-09-2018 Comment on above: Take [address] [facility] once daily. TAKE 1 CAPSULE BY [facility] ONCE DAILY traMADol hydrochloride 50 mg oral tablet (20 sources) Opioid Agonist Start: 07-25-2021 End: 12-19-2021 Start: 07-02-2019 End: 07-16-2021 take 1 tablet by mouth twice daily as needed traMADol (ULTRAM) 50 mg tablet Indications: Primary osteoarthritis of both knees Take 1 tablet by mouth twice daily as needed for up to 30 days. Do not start before July 02, 2019. 30 tablet 1 07/02/2019 07/16/2021 Discontinued Start: 08-29-2013 End: 04-29-2016 Comment on above: Take 1 tablet by n[facility] twice daily as needed for up to 30 days. Do not start before July 02, 2019. vancomycin 125 mg oral capsule (4 sources) Glycopeptide Antibacterial Start: 3 End: 3 take 1 capsule by mouth four times daily vancomycin (VANCOCIN) 125 mg capsule Take 1 capsule by mouth four times daily for 10 days. 40 capsule 0 05/06/2022 05/16/2022 Comment on above: Take [address] [facility] four times daily for 10 days. Vibegron (9 sources) Start: 4 End: 5 Start: 06-07-2023 take 1 tablet by nika once daily Vibegron (Gemtesa) 75 mg tablet Active 75 MG PO DAILY June 07, 2023 12:00am Start: 06-07-2023 take 1 tablet by nika once daily Vibegron (Vibegron 75 Mg Tablet) 75 mg tablet Active 75 MG PO DAILY June 07, 2023 12:00am vitamin b6 100 mg oral table t (20 sources) Start: 07-12-2008 End: 08-22-2024 Comment on above: Take one(1) tablet d aily. vitamin e 180 mg oral capsul e (20 sources) Start: 07-25-2021 End: 06-09-2024 Start: 07-12-2008 End: 08-22-2024 VITAMIN E 400 UNIT CAP Take one(1) tablet twice daily. 0 07/12/2008 08/22/2024 Discontinued (Course of therapy completed) Start: 07-12-2008 VITAMIN E 400 UNIT CAP Take one(1) tablet twice daily. 0 07/12/2008 Active Comment on above: Take one(1) tablet t wice daily. water 1000 mg/ml irrigation solution (3 sources) Start: 05-06-2024 End: 05-18-2024 zinc acetate 25 mg oral caps ule (7 sources) Start: 02-24-2024 End: 06-09-2024 (1 source) End: 05-18-2024 (3 sources) Start: 05-18-2024 End: 05-18-2024 Start: 05-16-2024 End: 05-17-2024 Start: 05-06-2024 End: 05-16-2024 (1 source) Start: 05-17-2024 End: 05-17-2024 (2 sources) Start: 05-09-2024 End: 05-09-2024 Start: 05-06-2024 End: 05-06-2024 (2 sources) Start: 05-07-2024 End: 05-07-2024 (2 sources) Start: 05-07-2024 End: 05-18-2024 Start: 05-06-2024 End: 05-07-2024 (1 source) Start: 05-06-2024 End: 05-17-2024 (1 source) Start: 05-05-2024 End: 05-06-2024 (1 source) Start: 05-04-2024 End: 05-06-2024 Problems Active Problems Problem Classification Problem Date Documented Da te Episodic/Chronic Abdominal pain (20 sources) Indigestion; Translations: [Epigastric pain] Onset: 7 Episodic Acute and unspecified renal failure (20 sources) Renal failure syndrome; Translations: [Unspecified kidney failure] Onset: 1 05-01-2020 Chronic Acute and unspecified renal failure (20 sources) Acute renal failure syndrome; Translations: [Acute kidney failure, unspecified] Onset: 5 06-07-2023 Episodic Anxiety disorders (2 sources) Anticipatory anxiety; Translations: [Anxiety disorder, unspecified] Chronic Asthma (20 sources) Unspecified asthma, uncomplicated; Translations: [Asthma, unspecified type, unspecified] Onset: 4 07-31-2003 Chronic Cardiac dysrhythmias (15 sources) Bradycardia; Translations: [Bradycardia, unspecified] Onset: 5 06-18-2024 Episodic Chronic kidney disease (20 sources) Anemia; Translations: [Chronic kidney disease, unspecified] Onset: 6 02-26-2015 Chronic Chronic kidney disease (2 sources) Chronic kidney disease; Translations: [Chronic kidney disease, stage 3b] Onset: Chronic obstructive pulmonary disease and bronchiectasis (14 sources) Chronic obstructive lung disease; Translations: [Chronic obstructive pulmonary disease, unspecified] Onset: 5 08-22-2024 Chronic Coagulation and hemorrhagic disorders (2 sources) Thrombocytopenic disorder; Translations: [Thrombocytopenia, unspecified] Onset: 5 05-05-2024 Chronic Conduction disorders (20 sources) Incomplete left bundle branch block; Translations: [Left bundle-branch block, unspecified] 02-09-2018 Chronic Congestive heart failure; nonhypertensive (20 sources) Acute diastolic heart failure; Translations: [Acute diastolic (congestive) heart failure] Onset: 5 Chronic Contraceptive and procreative management (1 source) Intrauterine contraceptive device in situ; Translations: [Presence of (intrauterine) contraceptive device] 12-04-2023 Episodic Deficiency and other anemia (11 sources) Anemia of chronic disease; Translations: [Anemia in other chronic diseases classified elsewhere] Onset: 5 05-16-2024 Chronic Deficiency and other anemia (2 sources) Iron deficiency anemia due to blood loss; Translations: [Iron deficiency anemia secondary to blood loss (chronic)] 08-22-2024 Chronic Deficiency and other anemia (1 source) Anemia in chronic kidney disease; Translations: [Anemia in chronic kidney disease, unspecified CKD stage] Onset: 5 Chronic Deficiency and other anemia (1 source) Iron deficiency anemia secondary to blood loss (chronic); Translations: [Iron deficiency anemia due to chronic blood loss] Onset: 5 Chronic Deficiency and other anemia (1 source) Anemia; Translations: [Anemia, unspecified] 05-08-2024 Episodic Deficiency and other anemia (14 sources) Chronic anemia; Translations: [Anemia, unspecified] 05-19-2024 Episodic Disorders of lipid metabolism (5 sources) Hyperlipidemia; Translations: [Hyperlipidemia, unspecified] Onset: 5 07-22-2023 Chronic E Codes: Adverse effects of medical drugs (8 sources) Adverse reaction to drug; Translations: [Adverse effect of unspecified drugs, medicaments and biological substances, initial encounter] Onset: 4 05-19-2024 Episodic E Codes: Fall (3 sources) Fall; Translations: [Unspecified fall, initial encounter] Episodic Epilepsy; convulsions (20 sources) Status epilepticus; Translations: [Epilepsy, unspecified, not intractable, with status epilepticus] Onset: 5 05-18-2024 Chronic Epilepsy; convulsions (3 sources) Seizure; Translations: [Unspecified convulsions] Onset: 5 08-22-2024 Episodic Essential hypertension (20 sources) Benign essential hypertension; Translations: [Essential (primary) hypertension] Onset: 4 Chronic Fluid and electrolyte disorders (20 sources) Metabolic acidosis; Translations: [Metabolic acidosis] Onset: 5 06-18-2024 Episodic Fracture of lower limb (20 sources) Fracture of femur; Translations: [Unspecified fracture of right femur, initial encounter for closed fracture] 02-09-2018 Episodic Gastrointestinal hemorrhage (1 source) Rectal hemorrhage; Translations: [Hemorrhage of anus and rectum] Episodic Genitourinary symptoms and ill-defined conditions (20 sources) Female stress incontinence; Translations: [Stress incontinence (female) (male)] Onset: 9 Chronic Genitourinary symptoms and ill-defined conditions (1 source) Dysuria; Translations: [Dysuria] Episodic Hypertension with complications and secondary hypertension (1 source) Hypertensive heart disease with heart failure; Translations: [Hypertensive heart disease with heart failure] Onset: Chronic Immunizations and screening for infectious disease (20 sources) Methicillin resistant staphylococcus aureus carrier; Translations: [Carrier or suspected carrier of Methicillin resistant Staphylococcus aureus] Onset: 4 07-25-2021 Episodic Intestinal infection (1 source) Clostridium difficile colitis; Translations: [Enterocolitis due to Clostridium difficile, not specified as recurrent] Episodic Intestinal obstruction without hernia (9 sources) Fecal impaction; Translations: [Fecal impaction of rectum] 06-08-2023 Episodic Malaise and fatigue (20 sources) Asthenia; Translations: [Weakness] Onset: 5 05-20-2024 Episodic Nonspecific chest pain (13 sources) Chest pain; Translations: [Chest pain, unspecified] 06-27-2022 Episodic Nutritional deficiencies (3 sources) Vitamin D deficiency; Translations: [Vitamin D deficiency, unspecified] Onset: 5 05-08-2024 Chronic Nutritional deficiencies (8 sources) Iron deficiency; Translations: [Iron deficiency] Onset: 4 05-20-2024 Episodic Open wounds of extremities (20 sources) Injury of right leg; Translations: [Unspecified open wound, right lower leg, subsequent encounter] Onset: 5 08-22-2024 Episodic Osteoarthritis (20 sources) Primary gonarthrosis, bilateral; Translations: [Bilateral primary osteoarthritis of knee] Onset: 4 04-27-2017 Chronic Osteoporosis (10 sources) Osteoporosis; Translations: [Age-related osteoporosis without current pathological fracture] Onset: 4 05-10-2024 Chronic Other aftercare (1 source) Aftercare following joint replacement surgery; Translations: [Aftercare following joint replacement surgery] Onset: 4 Chronic Other aftercare (6 sources) Long-term current use of anticoagulant; Translations: [nursing home (current) use of anticoagulants] 07-29-2024 Episodic Other and ill-defined heart disease (7 sources) Diastolic dysfunction; Translations: [Other ill-defined heart diseases] 03-11-2024 Chronic Other and ill-defined heart disease (1 source) Other ill-defined heart diseases; Translations: [Other ill-defined heart diseases] Onset: 4 Chronic Other bone disease and musculoskeletal deformities (14 sources) Osteopenia; Translations: [Other specified disorders of bone density and structure, unspecified site] 06-18-2024 Episodic Other connective tissue disease (7 sources) History of operative procedure on shoulder; Translations: [Presence of unspecified artificial shoulder joint] 05-19-2024 Chronic Other connective tissue disease (2 sources) Presence of left artificial shoulder joint; Translations: [Presence of left artificial shoulder joint] Onset: 4 Chronic Other connective tissue disease (8 sources) Myofascial pain; Translations: [Myalgia, other site] Episodic Other connective tissue disease (11 sources) Swelling of left lower limb; Translations: [Other specified soft tissue disorders] 12-06-2021 Episodic Other connective tissue disease (5 sources) Other specified soft tissue disorders; Translations: [Swelling of limb] Onset: 5 Episodic Other connective tissue disease (11 sources) Swelling of lower limb; Translations: [Other specified soft tissue disorders] Episodic Other connective tissue disease (2 sources) Rotator cuff impingement syndrome; Translations: [Impingement syndrome of unspecified shoulder] 01-15-2023 Episodic Other connective tissue disease (1 source) Recurrent falls ; Translations: [Repeated falls] 12-14-2023 Episodic Other connective tissue disease (2 sources) Myalgia, other site; Translations: [Myofascial pain] Onset: 4 Episodic Other diseases of kidney and ureters (1 source) Abnormal renal function; Translations: [Disorder of kidney and ureter, unspecified] Episodic Other diseases of kidney and ureters (2 sources) Kidney disease; Translations: [Disorder of kidney and ureter, unspecified] Onset: 5 Resolved: 5 05-16-2024 Episodic Other diseases of veins and lymphatics (14 sources) Chronic acquired lymphedema; Translations: [Lymphedema, not elsewhere classified] 10-17-2019 Chronic Other diseases of veins and lymphatics (20 sources) Lymphedema; Translations: [Lymphedema, not elsewhere classified] Onset: 2 Chronic Other diseases of veins and lymphatics (11 sources) Lymphedema, not elsewhere classified; Translations: [Other lymphedema] Onset: 2 Chronic Other diseases of veins and lymphatics (7 sources) Venous insufficiency of leg; Translations: [Venous insufficiency (chronic) (peripheral)] 03-11-2024 Episodic Other female genital disorders (20 sources) Complex atypical endometrial hyperplasia; 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]] Onset: 8 01-12-2018 Chronic Other gastrointestinal disorders (1 source) Chronic idiopathic constipation; Translations: [Chronic idiopathic constipation] Onset: Chronic Other gastrointestinal disorders (1 source) Altered bowel function; Translations: [Other specified symptoms and signs involving the digestive system and abdomen] Episodic Other gastrointestinal disorders (20 sources) History of bariatric surgical procedure; Translations: [Bariatric surgery status] 02-09-2018 Episodic Other gastrointestinal disorders (1 source) Ascites; Translations: [Other ascites] Episodic Other gastrointestinal disorders (1 source) Other ascites; Translations: [Other ascites] Episodic Other gastrointestinal disorders (2 sources) Swollen abdomen; Translations: [Abdominal distension (gaseous)] Episodic Other gastrointestinal disorders (2 sources) Stool finding; Translations: [Other fecal abnormalities] Episodic Other gastrointestinal disorders (9 sources) Constipation; Translations: [Constipation, unspecified] 06-07-2023 Episodic Other gastrointestinal disorders (2 sources) Constipation, unspecified; Translations: [Constipation, unspecified] 06-08-2023 Episodic Other gastrointestinal disorders (2 sources) Chronic constipation; Translations: [Other constipation] 07-22-2023 Episodic Other gastrointestinal disorders (14 sources) Dysphagia; Translations: [Dysphagia, unspecified] 05-20-2024 Episodic Other gastrointestinal disorders (14 sources) Incontinence of feces; Translations: [Full incontinence of feces] 06-18-2024 Episodic Other gastrointestinal disorders (14 sources) Occult blood in stools; Translations: [Other fecal abnormalities] 05-20-2024 Episodic Other lower respiratory disease (20 sources) Dyspnea; Translations: [Shortness of breath] Episodic Other lower respiratory disease (5 sources) Rib pain; Translations: [Pleurodynia] Episodic Other lower respiratory disease (20 sources) Dyspnea on exertion; Translations: [Dyspnea, unspecified] 08-06-2021 Episodic Other lower respiratory disease (3 sources) Dyspnea, unspecified; Translations: [Other respiratory abnormalities] Episodic Other lower respiratory disease (4 sources) Other forms of dyspnea; Translations: [Other respiratory abnormalities] Episodic Other lower respiratory disease (2 sources) Pleuritic pain; Translations: [Pleurodynia] 06-16-2023 Episodic Other lower respiratory disease (1 source) Cough; Translations: [Acute cough] 03-31-2023 Episodic Other lower respiratory disease (3 sources) Lower respiratory tract infection; Translations: [Unspecified acute lower respiratory infection] 09-04-2024 Episodic Other lower respiratory disease (3 sources) Cough; Translations: [Subacute cough] 09-12-2024 Episodic Other lower respiratory disease (1 source) Shortness of breath; Translations: [SOB (shortness of breath)] Onset: 5 Episodic Other lower respiratory disease (1 source) Unspecified acute lower respiratory infection; Translations: [Lower respiratory infection] Onset: 5 Episodic Other nervous system disorders (9 sources) Chronic pain; Translations: [Other chronic pain] Chronic Other nervous system disorders (15 sources) Disorder of brain; Translations: [Encephalopathy, unspecified] 05-08-2024 Chronic Other nervous system disorders (3 sources) Encephalopathy, unspecified; Translations: [Encephalopathy, unspecified] Onset: 5 Chronic Other nervous system disorders (4 sources) Other chronic pain; Translations: [Other chronic pain] Onset: 4 Chronic Other nervous system disorders (2 sources) Impairment of balance; Translations: [Other abnormalities of gait and mobility] 12-14-2023 Episodic Other non-traumatic joint disorders (14 sources) Spondylosis; Translations: [Osteophyte, vertebrae] 06-18-2024 Chronic Other non-traumatic joint disorders (1 source) Osteophyte, vertebrae; Translations: [Osteophyte, vertebrae] Onset: 5 Chronic Other non-traumatic joint disorders (7 sources) Pain in unspecified knee; Translations: [Pain in joint, lower leg] Onset: 4 Episodic Other non-traumatic joint disorders (1 source) Pain in left shoulder; Translations: [Pain in joint, shoulder region] 12-22-2022 Episodic Other non-traumatic joint disorders (3 sources) Shoulder pain; Translations: [Pain in unspecified shoulder] 07-22-2023 Episodic Other non-traumatic joint disorders (14 sources) Pain in wrist; Translations: [Pain in left wrist] 06-06-2024 Episodic Other nutritional; endocrine; and metabolic disorders (20 sources) Severe obesity; Translations: [Morbid (severe) obesity due to excess calories] Onset: 4 07-12-2021 Chronic Other nutritional; endocrine; and metabolic disorders (20 sources) Body mass index 40+ - severely obese; Translations: [Morbid (severe) obesity due to excess calories] 02-09-2018 Chronic Other nutritional; endocrine; and metabolic disorders (14 sources) Obesity; Translations: [Obesity, unspecified] 07-25-2021 Chronic Other nutritional; endocrine; and metabolic disorders (14 sources) Hyperphosphatemia; Translations: [Other disorders of phosphorus metabolism] 06-08-2024 Chronic Other nutritional; endocrine; and metabolic disorders (1 source) Other disorders of phosphorus metabolism; Translations: [Other disorders of phosphorus metabolism] Onset: 5 Chronic Other nutritional; endocrine; and metabolic disorders (1 source) Morbid (severe) obesity due to excess calories; Translations: [Morbid (severe) obesity due to excess calories] Onset: 4 Chronic Other nutritional; endocrine; and metabolic disorders (1 source) Body mass index (BMI) 45.0-49.9, adult; Translations: [Body mass index [BMI] 45.0-49.9, adult] Onset: 4 Chronic Other nutritional; endocrine; and metabolic disorders (1 source) Body mass index (BMI) 40.0-44.9, adult; Translations: [Class 3 severe obesity with body mass index (BMI) of 40.0 to 44.9 in adult] Onset: 2 Chronic Other screening for suspected conditions (not mental disorders or infectious disease) (20 sources) Abnormal results of kidney function studies; Translations: [Nonspecific abnormal results of function study of kidney] Onset: 7 Resolved: 2 12-22-2022 Episodic Phlebitis; thrombophlebitis and thromboembolism (1 source) 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; Translations: [Chronic embolism and thrombosis of unspecified internal jugular vein] 08-22-2024 Chronic Phlebitis; thrombophlebitis and thromboembolism (20 sources) History of thromboembolism of vein; Translations: [Personal history of other venous thrombosis and embolism] Onset: 4 Resolved: 0 02-09-2018 Episodic Pulmonary heart disease (8 sources) Pulmonary hypertension; Translations: [Pulmonary hypertension, unspecified] Onset: 4 03-11-2024 Chronic Pulmonary heart disease (20 sources) Infarction of lung due to embolus; Translations: [Pulmonary embolism and infarction] Onset: 4 Resolved: 0 08-21-2009 Episodic Residual codes; unclassified (20 sources) Sleep apnea; Translations: [Sleep apnea, unspecified] Onset: 4 07-31-2003 Chronic Residual codes; unclassified (9 sources) Obstructive sleep apnea syndrome; Translations: [Obstructive sleep apnea (adult) (pediatric)] 05-19-2024 Chronic Residual codes; unclassified (2 sources) Obstructive sleep apnea (adult) (pediatric); Translations: [Obstructive sleep apnea (adult) (pediatric)] Onset: 4 Chronic Residual codes; unclassified (20 sources) Insomnia; Translations: [Insomnia, unspecified] Onset: 2 Episodic Residual codes; unclassified (4 sources) Bilateral lower limb edema; Translations: [Localized edema] Episodic Residual codes; unclassified (5 sources) H/O: fracture; Translations: [Other specified postprocedural states] Episodic Residual codes; unclassified (16 sources) History of operation on musculoskeletal system; Translations: [Other specified postprocedural states] 02-09-2018 Episodic Residual codes; unclassified (6 sources) Acute pain; Translations: [Pain, unspecified] 07-29-2024 Episodic Residual codes; unclassified (1 source) Other specified postprocedural states; Translations: [Other specified postprocedural states] Onset: 5 Episodic Respiratory failure; insufficiency; arrest (adult) (18 sources) Acute respiratory failure; Translations: [Acute respiratory failure, unspecified whether with hypoxia or hypercapnia] Onset: 5 05-08-2024 Episodic Screening and history of mental health and substance abuse codes (20 sources) Tobacco use and exposure - finding; Translations: [Personal history of nicotine dependence] 02-09-2018 Episodic Septicemia (except in labor) (18 sources) Septic shock; Translations: [Sepsis, unspecified organism] Onset: 5 06-18-2024 Episodic Skin and subcutaneous tissue infections (8 sources) Cellulitis; Translations: [Cellulitis, unspecified] Onset: 4 05-19-2024 Episodic Spondylosis; intervertebral disc disorders; other back problems (20 sources) Lumbar spondylosis; Translations: [Spondylosis without myelopathy or radiculopathy, lumbar region] Onset: 2 Chronic Spondylosis; intervertebral disc disorders; other back problems (20 sources) Backache; Translations: [Dorsalgia, unspecified] Onset: 2 Episodic Superficial injury; contusion (17 sources) Contusion of right lower leg, initial encounter; Translations: [Hematoma of right lower extremity] Onset: 5 07-29-2024 Episodic Thyroid disorders (20 sources) Acquired hypothyroidism; Translations: [Hypothyroidism, unspecified] Onset: 9 Chronic Unclassified (1 source) Acidosis, unspecified; Translations: [Acidosis, unspecified] Onset: 5 Unclassified (1 source) Subacute cough; Translations: [Subacute cough] Onset: 5 Unclassified (1 source) Class 3 severe obesity with body mass index (BMI) of 40.0 to 44.9 in adult; Translations: [Class 3 severe obesity with body mass index (BMI) of 40.0 to 44.9 in adult] Onset: 2 Unclassified (1 source) Chronic right-sided low back pain without sciatica; Translations: [Chronic right-sided low back pain without sciatica] Onset: 4 Urinary tract infections (20 sources) Urinary tract infectious disease; Translations: [Urinary tract infection, site not specified] Onset: 5 05-10-2024 Episodic Past or Other Problems Problem Classification Problem Date Documented Da te Episodic/Chronic Abdominal hernia (20 sources) Hernia of anterior abdominal wall; Translations: [Ventral hernia without obstruction or gangrene] Onset: 03-26-2004 Resolved: 07-01-2007 07-01-2007 Episodic Bacterial infection; unspecified site (1 source) Unspecified Escherichia coli [E. coli] as the cause of diseases classified elsewhere; Translations: [Unspecified Escherichia coli [E. coli] as the cause of diseases classified elsewhere] Onset: 06-10-2024 Episodic Cardiac dysrhythmias (1 source) Ventricular tachycardia; Translations: [V-tach] Onset: 05-11-2024 Resolved: 05-11-2024 05-11-2024 Chronic Complications of surgical procedures or medical care (20 sources) Non-healing surgical wound; Translations: [Other complications of procedures, not elsewhere classified, initial encounter] Onset: 03-16-2007 Resolved: 05-18-2009 05-18-2009 Episodic Conditions associated with dizziness or vertigo (2 sources) Dizziness; Translations: [Dizziness and giddiness] Onset: 11-09-2023 11-09-2023 Episodic Deficiency and other anemia (3 sources) Anemia, unspecified; Translations: [Anemia, unspecified] Onset: 05-04-2024 Episodic Deficiency and other anemia (1 source) Nutritional anemia, unspecified; Translations: [Nutritional anemia, unspecified] Onset: 03-03-2024 Episodic Deficiency and other anemia (1 source) Iron deficiency anemia, unspecified; Translations: [Iron deficiency anemia, unspecified iron deficiency anemia type] Onset: 03-16-2024 Episodic Other aftercare (1 source) Encounter for follow-up examination after completed treatment for conditions other than malignant neoplasm; Translations: [Hospital discharge follow-up] Onset: 03-16-2024 Episodic Other bone disease and musculoskeletal deformities (1 source) Other specified disorders of bone density and structure, multiple sites; Translations: [Other specified disorders of bone density and structure, multiple sites] Onset: 06-10-2024 Episodic Other connective tissue disease (20 sources) Disorder of rotator cuff; Translations: [Unspecified rotator cuff tear or rupture of unspecified shoulder, not specified as traumatic] Onset: 02-19-2011 02-19-2011 Episodic Other connective tissue disease (1 source) Impingement syndrome of unspecified shoulder; Translations: [Rotator cuff impingement syndrome, unspecified laterality] Onset: 04-16-2023 Episodic Other diseases of veins and lymphatics (1 source) Venous insufficiency (chronic) (peripheral); Translations: [Venous insufficiency (chronic) (peripheral)] Onset: 03-03-2024 Episodic Other gastrointestinal disorders (1 source) Other fecal abnormalities; Translations: [Other fecal abnormalities] Onset: 06-10-2024 Episodic Other gastrointestinal disorders (1 source) Dysphagia, oropharyngeal phase; Translations: [Dysphagia, oropharyngeal phase] Onset: 06-10-2024 Episodic Other gastrointestinal disorders (1 source) Full incontinence of feces; Translations: [Full incontinence of feces] Onset: 06-10-2024 Episodic Other gastrointestinal disorders (1 source) Other constipation; Translations: [Chronic constipation] Onset: 12-14-2023 Episodic Other injuries and conditions due to external causes (20 sources) Injury of trunk; Translations: [Other injury of other sites of trunk] Onset: 01-16-2006 Resolved: 07-01-2007 07-01-2007 Episodic Other lower respiratory disease (1 source) Pleurodynia; Translations: [Pleurodynia] Onset: 08-14-2023 Episodic Other nervous system disorders (1 source) Other abnormalities of gait and mobility; Translations: [Balance problem] Onset: 01-28-2024 Episodic Other non-traumatic joint disorders (20 sources) Pain in lower limb; Translations: [Pain in unspecified knee] Onset: 11-14-2008 Resolved: 08-21-2009 08-21-2009 Episodic Other non-traumatic joint disorders (1 source) Pain in left wrist; Translations: [Pain in left wrist] Onset: 06-10-2024 Episodic Other non-traumatic joint disorders (1 source) Pain in unspecified shoulder; Translations: [Chronic shoulder pain, unspecified laterality] Onset: 01-28-2024 Episodic Other skin disorders (20 sources) Mass of skin; Translations: [Localized swelling, mass and lump, unspecified] Onset: 07-21-2008 Resolved: 08-18-2018 08-18-2018 Episodic Other skin disorders (1 source) Other skin changes; Translations: [Skin irritation] Onset: 03-16-2024 Episodic Residual codes; unclassified (2 sources) Insomnia, unspecified; Translations: [Insomnia, unspecified] Onset: 07-30-2011 Episodic Residual codes; unclassified (1 source) Asymptomatic menopausal state; Translations: [Asymptomatic postmenopausal status] Onset: 03-16-2024 Episodic Shock (4 sources) Shock; Translations: [Shock, unspecified] Onset: 05-13-2024 05-04-2024 Episodic Unclassified (20 sources) ASA CLASS III Onset: 05-07-2005 Resolved: 07-12-2021 07-12-2021 Viral infection (20 sources) Disease caused by 2019-nCoV; Translations: [COVID-19] Onset: 01-19-2021 07-25-2021 Episodic Results Test Name Value Interpretation Reference Range Facility Absolute lymphocyte countOrd ered By: Jhonatan Maxwell on 09-28-2024 Lymphocytes Auto (Unsp spec) [#/Vol] 1.52 10*3/uL 0.83-4.51 [facility] Anion gap in Serum or Plasma Ordered By: Jhonatan Maxwell on 09-28-2024 Anion gap [Moles/Vol] 15 mmol/L 5-15 [facility] Automated lymphocyte count a s percentage of total leukocytesOrdered By: Jhonatan Maxwell on 09-28-2024 Lymphocytes/100 WBC Auto (Unsp spec) 20.1 % 19-41 [facility] BUN/creatinine ratioOrdered By: Jhonatan Maxwell on 09-28-2024 Urea nitrogen/Creatinine [Mass ratio] 26.7 mg/mg High 10-20 [facility] Basophil percentageOrdered B y: Jhonatan Maxwell on 09-28-2024 Basophils/100 WBC (Bld) 0.3 % 0-1 [facility] Bilirubin Test strip Ql (U)O rdered By: Jhonatan Maxwell on 09-28-2024 Bilirubin Ql (U) Negative Negative [facility] Bilirubin, totalOrdered By: Jhonatan Maxwell on 09-28-2024 Bilirubin [Mass/Vol] 0.20 mg/dL 0.00-1.30 [facility] Carbon dioxide, total [Moles /volume] in Central venous bloodOrdered By: Jhonatan Maxwell on 09-28-2024 CO2 [Moles/Vol] 11.0 mmol/L Low 21.0-32.0 [facility] Chloride assayOrdered By: Howard Maxwell on 09-28-2024 Chloride [Moles/Vol] 113 mmol/L High 98-108 [facility] Eosinophil percentageOrdered By: Jhonatan Maxwell on 09-28-2024 Eosinophils/100 WBC (Bld) 3.6 % 0-5 [facility] Erythrocyte distribution wid th ratioOrdered By: Jhonatan Maxwell on 09-28-2024 Erythrocyte distribution width (RBC) [Ratio] 15.5 % High 11.6-14.6 [facility] Erythrocyte distribution wid th standard deviationOrdered By: Jhonatan Maxwell on 09-28-2024 Erythrocyte distribution width (RBC) [Ratio] 58.2 fl High 35.1-43.9 [facility] Glomerular filtration rate ( GFR) estimation/1.73 sq m using serum, plasma, or whole bOrdered By: Jhonatan Maxwell on 09-28-2024 GFR/1.73 sq M.predicted among non-blacks MDRD (S/P/Bld) [Vol rate/Area] 10 mL/min/{1.73_m2} Low >60 [facility] Hematocrit Auto (Bld) [Volum e fraction]Ordered By: Jhonatan Maxwell on 09-28-2024 Hematocrit (Bld) [Volume fraction] 30.0 % Low 37-47 [facility] Hemoglobin measurementOrdere d By: Jhonatan Maxwell on 09-28-2024 Hemoglobin (Bld) [Mass/Vol] 9.2 g/dL Low 12.0-15.0 [facility] Immature granulocytes/100 WB C Auto (Bld)Ordered By: Jhonatan Maxwell on 09-28-2024 Immature granulocytes/100 WBC (Bld) 0.400 % 0.0-0.9 [facility] Ketones Test strip Ql (U)Ord ered By: Jhonatan Maxwell on 09-28-2024 Ketones Ql (U) Negative Negative [facility] MCV (mean corpuscular volume ) determinationOrdered By: Jhonatan Maxwell on 09-28-2024 MCV (RBC) [Entitic vol] 104.2 fL High 81-99 [facility] Magnesium measurement (mass/ volume)Ordered By: Jhonatan Maxwell on 09-28-2024 Magnesium (Unsp spec) [Mass/Vol] 3.1 mg/dL High 1.5-2.2 [facility] Mean corpuscular hemoglobin (MCH) determinationOrdered By: Jhonatan Maxwell on 09-28-2024 MCH (RBC) [Entitic mass] 31.9 pg 27.0-32.0 [facility] Monocyte percentageOrdered B y: Jhonatan Maxwell on 09-28-2024 Monocytes/100 WBC (Bld) 8.7 % 0-10 [facility] Mucus LM Ql (Urine sed)Order ed By: Jhonatan Maxwell on 09-28-2024 Mucus Ql (Urine sed) 0 SEEN /hpf [facility] Neutrophil percentageOrdered By: Jhonatan Maxwell on 09-28-2024 Neutrophils/100 WBC (Bld) 66.9 % 47-70 [facility] Nitrite Test strip Ql (U)Ord ered By: Jhonatan Maxwell on 09-28-2024 Nitrite Ql (U) Negative Negative [facility] No Panel InformationOrdered By: Jhonatan Maxwell on 09-28-2024 289 U/L High <32 [facility] Platelet countOrdered By: Howard Maxwell on 09-28-2024 Platelets (Bld) [#/Vol] 206 10*3/uL 150-450 [facility] Potassium measurement (mass/ volume)Ordered By: Jhonatan Maxwell on 09-28-2024 Potassium (Unsp spec) [Mass/Vol] 6.0 mmol/L High 3.3-5.1 [facility] Protein Test strip Ql (U)Ord ered By: Jhonatan Maxwell on 09-28-2024 Protein Ql (U) 15 mg/dl High Negative [facility] RBC Auto (Bld) [#/Vol]Ordere d By: Jhonatan Maxwell on 09-28-2024 RBC (Bld) [#/Vol] 2.88 10*6/uL Low 4.2-5.4 [facility] Random urine creatinine farheen urement (mass/volume)Ordered By: Michelle Gallardo on 09-28-2024 Creatinine Unsp time (U) [Mass/Vol] 34.40 mg/dL 28.00-217. 00 [facility] Serum creatinine measurement (mass/volume)Ordered By: Jhonatan Maxwell on 09-28-2024 Creatinine [Mass/Vol] 4.15 mg/dL High 0.70-1.20 [facility] Serum globulin measurementOr dered By: Jhonatan Maxwell on 09-28-2024 Globulin (S) [Mass/Vol] 2.7 g/dL 2.2-4.2 [facility] Serum glucose measurement (m ass/volume)Ordered By: Jhonatan Maxwell on 09-28-2024 Glucose [Mass/Vol] 129 mg/dL High 70-99 [facility] Serum or plasma alanine huertas otransferase (ALT) measurementOrdered By: Jhonatan Maxwell on 09-28-2024 ALT [Catalytic activity/Vol] 351 U/L High <35 [facility] Serum or plasma albumin farheen urement (mass/volume)Ordered By: Jhonatan Maxwell on 09-28-2024 Albumin [Mass/Vol] 3.1 g/dL Low 3.4-4.8 [facility] Serum or plasma albumin/glob ulin mass ratioOrdered By: Jhonatan Maxwell on 09-28-2024 Albumin/Globulin [Mass ratio] 1.1 {ratio} 0.9-2.4 [facility] Serum or plasma alkaline mariya sphatase measurementOrdered By: Jhonatan Maxwell on 09-28-2024 ALP [Catalytic activity/Vol] 130 U/L High 35-104 [facility] Serum or plasma calcium farheen urement (mass/volume)Ordered By: Jhonatan Maxwell on 09-28-2024 Calcium [Mass/Vol] 7.9 mg/dL 7.6-11.0 [facility] Serum or plasma creatine kin ase activityOrdered By: Laurence Zamora on 09-28-2024 CK [Catalytic activity/Vol] 27 U/L 24-195 [facility] Serum or plasma urea nitroge n measurement (mass/volume)Ordered By: Jhonatan Maxwell on 09-28-2024 Urea nitrogen [Mass/Vol] 111 mg/dL High 4-19 [facility] Sodium levelOrdered By: Deuce Maxwell on 09-28-2024 Sodium [Moles/Vol] 139 mmol/L 133-145 [facility] Squamous epithelial cells de tection in urine sediment by light microscopyOrdered By: Jhonatan Maxwell on 09-28-2024 Epithelial cells.squamous LM Ql (Urine sed) 0-5 SEEN /hpf 5-10 [facility] Total proteinOrdered By: Al Maxwell on 09-28-2024 Protein [Mass/Vol] 5.9 g/dL 5.9-8.4 [facility] Troponin T.cardiac [Mass/vol ume] in Serum or Plasma by High sensitivity methodOrdered By: Jhonatan Maxwell on 09-28-2024 Troponin T.cardiac High sensitivity method [Mass/Vol] 44 ng/L High <14 [facility] Urine clarityOrdered By: Al Maxwell on 09-28-2024 Clarity (U) Turbid Clear [facility] Urine color determinationOrd ered By: Jhonatan Maxwell on 09-28-2024 Color (U) Straw Yellow [facility] Urine glucose detectionOrder ed By: Jhonatan Maxwell on 09-28-2024 Glucose Ql (U) Normal mg/dl Normal [facility] Urine leukocyte esterase det ection by dipstickOrdered By: Jhonatan Maxwell on 09-28-2024 Leukocyte esterase Test strip Ql (U) 500 /ul High Negative [facility] Urine pHOrdered By: Jhonatan donahue on 09-28-2024 pH (U) 6.0 [pH] 5.0 - 8.0 [facility] Urine sediment bacteria coun t by microscopy (number/high power field)Ordered By: Jhonatan Maxwell on 09-28-2024 Bacteria LM.HPF (Urine sed) [#/Area] 3 /[HPF] None Seen [facility] Urine sodium measurement (mo les/volume)Ordered By: Michelle Gallardo on 09-28-2024 Sodium (U) [Moles/Vol] 79 mmol/L Not Establ. [facility] Urine specific gravity measu rementOrdered By: Jhonatan Maxwell on 09-28-2024 Specific gravity (U) [Rel density] 1.015 1.002-1.03 0 [facility] Urine urobilinogen measureme ntOrdered By: Jhonatan Maxwell on 09-28-2024 Urobilinogen Ql (U) Normal mg/dl Normal [facility] White blood cell (WBC) count Ordered By: Jhonatan Maxwell on 09-28-2024 WBC (Bld) [#/Vol] 7.6 10*3/uL 4.4-11.0 [facility] White blood cell countOrdere d By: Jhonatan Maxwell on 09-28-2024 White blood cell count >100 SEEN /hpf 0-5 [facility] CNOVon 09-22-2024 [facility] MARI LOPEZ ([id number]) 1940 F Date Time Provider Department 09/22/24 2:20 PM LIZY CAPONE During your visit today, we recorded the following information about you: Pulse Respiration Blood pressure Weight 120/minute 18/minute 122/72 108.2 kg Lizy Capone MD 09/22/2024 5:14 PM Signed Chief Complaint Patient presents with: F/U 1 month HPI Mari Lopez is a 84 year old female who presents here today for 1 month follow up. Here today with Alex, who friend. Pt is using a walker to get around. She did have a fall, her knees became shaky and gave out. She has swelling of the feet and ankles. Has been dealing with cough, saw Michael Carter on 09/15/24. She had blood work done and CXR done. She is still wheezing and coughing that has been ongoing x 3 weeks. Michael prescribed Azithromycin and Amoxicillin and then PCP gave her Doxycycline x 2 weeks. She thinks that the first 2 medications helped better but still not improved. She started on prednisone 2 days ago and feels that this has helped. Was suppose to have right shoulder surgery in July but was hospitalized and unable to have the surgery completed. Pt has chronic UTI, follows with Urologist Dr. Chayo Hernandez. Follows with Cardiology and Nephrology Past medical history, appointments, medications, allergies reviewed. Previous Medical History PAST MEDICAL HISTORY Diagnosis Date Chronic airway obstruction, not elsewhere classified Essential hypertension, benign Insomnia 07/30/2011 Obesity, unspecified Open wound of knee, leg (except thigh), and ankle, complicated Other pulmonary embolism and infarction Phlebitis and thrombophlebitis of femoral vein (deep) (superficial) ([facility]) Unspecified sleep apnea Previous Surgical History PAST SURGICAL HISTORY Procedure Laterality Date ANESTHESIA HERNIA REPAIR LOWER ABDOMEN NOS 04/2004,05/11 gortex put in on 05/11 then taken out06/08 ARTHRP KNE CONDYLEANDPLATU MEDIALANDLAT COMPARTMENTS 1990 bilateral total knee s([place]) ARTHRP KNE CONDYLEANDPLATU MEDIALANDLAT COMPARTMENTS 10/24/2004 bilateral total knee revisions DELIVERY ONLY , low cervical CHOLECYSTECTOMY COLONOSCOPY FLX DX W/COLLJ SPEC WHEN PFRMD 11/17/2017 Colonoscopy DEBRIDEMENT SUBCUTANEOUS TISSUE 20 SQ CM/< 02/17/2007 LEFT LEG DEBRIDEMENT SUBCUTANEOUS TISSUE 20 SQ CM/< 02/20/2007 LEFT LEG DEBRIDEMENT SUBCUTANEOUS TISSUE 20 SQ CM/< 02/24/2007 LEFT LEG DEBRIDEMENT SUBCUTANEOUS TISSUE 20 SQ CM/< 02/26/2007 LEFT LEG DEBRIDEMENT SUBCUTANEOUS TISSUE 20 SQ CM/< 03/01/2007 LEFT LEG DEBRIDEMENT SUBCUTANEOUS TISSUE 20 SQ CM/< 03/03/2007 LEFT LEG ESOPHAGOGASTRODUODENOSCOPY TRANSORAL DIAGNOSTIC 11/17/2017 EGD GASTRIC BYPASS 07/2003 HEMORRHOIDECTOMY INTERNAL RUBBER BAND LIGATIONS HYSTEROSCOPY BX W/WO DANDC 01/07/2018 PAST SURGICAL HISTORY OF 04/10/2016 [place] and new knee cap put in right leg PAST SURGICAL HISTORY OF 04/25/2016 had to debri right leg wound with cellutitis infection SHOULDER SURGERY HX Left 02/22/[address]24 left reverse total shoulder. Dr. Klaus Omalley with [facility] Family History FAMILY HISTORY Problem Relation Age of Onset Cancer Mother ovarian Patient Allergies ALLERGIES Allergen Reactions Bactrim [Sulfametho* Hives Blisters: head to toe Ibuprofen Rash Kefzol [Cefazolin S* Hives Peanut Anaphylaxis Sulfa (Sulfonamide * Hives, Unknown Blisters: head to toe Current Medications Current Outpatient Medications on File Prior to Visit Medication Sig azithromycin (ZITHROMAX) 250 mg tablet Take 2 tablets by mouth once daily for 1 day, THEN 1 tablet once daily for 4 days. amoxicillin-clavulanate potassium (AUGMENTIN) 875-125 mg per tablet Take 1 tablet by mouth two times a day for 5 days. guaiFENesin (MUCINEX) 600 mg 12 hr tablet Take 1 tablet by mouth two times a day. zolpidem (AMBIEN) 10 mg Take 1 tablet by mouth at bedtime as needed for up to 90 days. benzonatate (TESSALON PERLE) 100 mg capsule Take 1 capsule by mouth three times a day as needed for cough for up to 12 doses. atorvastatin (LIPITOR) 40 mg tablet Take 1 tablet by mouth once daily. bisacodyl (DULCOLAX) 10 mg supp 1 suppository by RECTAL route once daily as needed for constipation. calcium acetate,phosphat bind, (PHOSLO) 667 mg capsule Take 1 capsule by mouth three times a day. carvedilol (COREG) 6.25 mg tablet Take 1 tablet by mouth every 12 hours. cholecalciferol (VITAMIN D3) 1,000 unit tab tablet Take 2 tablets by mouth once daily. ferrous sulfate 325 mg (65 mg iron) tablet Take 1 tablet by mouth once daily. furosemide (LASIX) 40 mg tablet Take 1 tablet by mouth every other day. lacosamide (VIMPAT) 100 mg tab Take 1 tablet by mouth every 12 hours for 180 days. levothyroxine (LEVOXYL) 125 mcg tablet Take 1 tablet by mouth once daily. T (more content not included)... Normal [facility] CBC panel Auto (Bld)on 09-15 Erythrocyte distribution width (RBC) [Ratio] 15.7 % High 11.5-15.0 [facility] Comment on above: Order Comment: Jesui dov Type: BLOOD SPECIMEN Ordering Facility: [facility] Address: [address] [place] [address] Performed By: #### 5 8410-2 #### [facility] CLIA [id number] [address] [place] [address] [place] Hematocrit (Bld) [Volume fraction] 32.9 % Low 36.0-46.0 [facility] Comment on above: Order Comment: Jesui dov Type: BLOOD SPECIMEN Ordering Facility: [facility] Address: [address] [place] [address] Performed By: #### 5 8410-2 #### [facility] CLIA [id number] [address] [place] [address] [place] Hemoglobin (Bld) [Mass/Vol] 9.9 g/dL Low 11.5-15.5 [facility] Comment on above: Order Comment: Jesui men Type: BLOOD SPECIMEN Ordering Facility: [facility] Address: [address] [place] [address] Performed By: #### 5 8410-2 #### [facility] CLIA [id number] [address] [place] [address] [place] MCH (RBC) [Entitic mass] 32.0 pg Normal 26.0-34.0 [facility] Comment on above: Order Comment: Speci men Type: BLOOD SPECIMEN Ordering Facility: [facility] Address: [address] [place] [address] Performed By: #### 5 8410-2 #### [facility] CLIA [id number] [address] [place] [address] [place] MCHC (RBC) [Mass/Vol] 30.1 g/dL Low 30.5-36.0 [facility] Comment on above: Order Comment: Speci men Type: BLOOD SPECIMEN Ordering Facility: [facility] Address: [address] [place] [address] Performed By: #### 5 8410-2 #### [facility] CLIA [id number] [address] [place] [address] [place] MCV (RBC) [Entitic vol] 106.5 fL High 80.0-100.0 [facility] Comment on above: Order Comment: Speci men Type: BLOOD SPECIMEN Ordering Facility: [facility] Address: [address] [place] [address] Performed By: #### 5 8410-2 #### [facility] CLIA [id number] [address] [place] [address] [place] Nucleated RBC (Bld) [#/Vol] 10*3/uL Normal <0.01 [facility] Comment on above: Order Comment: Speci men Type: BLOOD SPECIMEN Ordering Facility: [facility] Address: [address] [place] [address] Performed By: #### 5 8410-2 #### [facility] CLIA [id number] [address] [place] [address] [place] Platelet mean volume (Bld) [Entitic vol] 13.9 fL High 9.0-12.7 [facility] Comment on above: Order Comment: Speci men Type: BLOOD SPECIMEN Ordering Facility: [facility] Address: [address] [place] [address] Performed By: #### 5 8410-2 #### [facility] CLIA [id number] [address] [place] [address] [place] Platelets (Bld) [#/Vol] 248 10*3/uL Normal 150-400 [facility] Comment on above: Order Comment: Speci men Type: BLOOD SPECIMEN Ordering Facility: [facility] Address: [address] [place] [address] Performed By: #### 5 8410-2 #### [facility] CLIA [id number] [address] [place] [address] [place] RBC (Bld) [#/Vol] 3.09 10*6/uL Low 3.90-5.20 [facility] Comment on above: Order Comment: Speci men Type: BLOOD SPECIMEN Ordering Facility: [facility] Address: [address] [place] [address] Performed By: #### 5 8410-2 #### [facility] CLIA [id number] [address] [place] [address] [place] WBC (Bld) [#/Vol] 7.94 10*3/uL Normal 3.70-11.00 [facility] Comment on above: Order Comment: Speci men Type: BLOOD SPECIMEN Ordering Facility: [facility] Address: [address] [place] [address] Performed By: #### 5 8410-2 #### [facility] CLIA [id number] [address] [place] [address] [place] CNOVon 09-15-2024 CNOV Office Visit (FAMPWS ) MARI LOPEZ ([id number]) 1940 F Date Time Provider Department 09/15/24 1:40 PM MICHAEL CARTER During your visit today, we recorded the following information about you: Pulse Blood pressure Weight 72/minute 112/67 105.7 kg Michael Carter, NANCI.DIGITAL DATA ANALYST 09/15/2024 2:04 PM Signed Chief Complaint Patient presents with: Follow Up HPI Mari Lopez is a 84 year old female who presents here today for Above Complaints. Patient presents for follow up. Patient reports she has completed 2 rounds of antibiotics for PNA with no improvement symptoms. Continues to cough up green phlegm, SOB with exertion. Does not monitor weight on regular basis, follows with [facility]. Also reports surgical procedure in July for wound that included skin graft with Dr. Lomax. Past medical history, appointments, medications, allergies reviewed. Previous Medical History PAST MEDICAL HISTORY Diagnosis Date Chronic airway obstruction, not elsewhere classified Essential hypertension, benign Insomnia 07/30/2011 Obesity, unspecified Open wound of knee, leg (except thigh), and ankle, complicated Other pulmonary embolism and infarction Phlebitis and thrombophlebitis of femoral vein (deep) (superficial) ([facility]) Unspecified sleep apnea Previous Surgical History PAST SURGICAL HISTORY Procedure Laterality Date ANESTHESIA HERNIA REPAIR LOWER ABDOMEN NOS 04/2004,05/11 gortex put in on 05/11 then taken out06/08 ARTHRP KNE CONDYLEANDPLATU MEDIALANDLAT COMPARTMENTS 1990 bilateral total knee s([place]) ARTHRP KNE CONDYLEANDPLATU MEDIALANDLAT COMPARTMENTS 10/24/2004 bilateral total knee revisions DELIVERY ONLY , low cervical CHOLECYSTECTOMY COLONOSCOPY FLX DX W/COLLJ SPEC WHEN PFRMD 11/17/2017 Colonoscopy DEBRIDEMENT SUBCUTANEOUS TISSUE 20 SQ CM/< 02/17/2007 LEFT LEG DEBRIDEMENT SUBCUTANEOUS TISSUE 20 SQ CM/< 02/20/2007 LEFT LEG DEBRIDEMENT SUBCUTANEOUS TISSUE 20 SQ CM/< 02/24/2007 LEFT LEG DEBRIDEMENT SUBCUTANEOUS TISSUE 20 SQ CM/< 02/26/2007 LEFT LEG DEBRIDEMENT SUBCUTANEOUS TISSUE 20 SQ CM/< 03/01/2007 LEFT LEG DEBRIDEMENT SUBCUTANEOUS TISSUE 20 SQ CM/< 03/03/2007 LEFT LEG ESOPHAGOGASTRODUODENOSCOPY TRANSORAL DIAGNOSTIC 11/17/2017 EGD GASTRIC BYPASS 07/2003 HEMORRHOIDECTOMY INTERNAL RUBBER BAND LIGATIONS HYSTEROSCOPY BX W/WO DANDC 01/07/2018 PAST SURGICAL HISTORY OF 04/10/2016 [place] and new knee cap put in right leg PAST SURGICAL HISTORY OF 04/25/2016 had to debri right leg wound with cellutitis infection SHOULDER SURGERY HX Left 02/22/2024 left reverse total shoulder. Dr. Klaus Omalley with [facility] Family History FAMILY HISTORY Problem Relation Age of Onset Cancer Mother ovarian Patient Allergies ALLERGIES Allergen Reactions Bactrim [Sulfametho* Hives Blisters: head to toe Ibuprofen Rash Kefzol [Cefazolin S* Hives Peanut Anaphylaxis Sulfa (Sulfonamide * Hives, Unknown Blisters: head to toe Current Medications Current Outpatient Medications on File Prior to Visit Medication Sig benzonatate (TESSALON PERLE) 100 mg capsule Take 1 capsule by mouth three times a day as needed for cough for up to 12 doses. atorvastatin (LIPITOR) 40 mg tablet Take 1 tablet by mouth once daily. bisacodyl (DULCOLAX) 10 mg supp 1 suppository by RECTAL route once daily as needed for constipation. calcium acetate,phosphat bind, (PHOSLO) 667 mg capsule Take 1 capsule by mouth three times a day. carvedilol (COREG) 6.25 mg tablet Take 1 tablet by mouth every 12 hours. cholecalciferol (VITAMIN D3) 1,000 unit tab tablet Take 2 tablets by mouth once daily. ferrous sulfate 325 mg (65 mg iron) tablet Take 1 tablet by mouth once daily. furosemide (LASIX) 40 mg tablet Take 1 tablet by mouth every other day. lacosamide (VIMPAT) 100 mg tab Take 1 tablet by mouth every 12 hours for 180 days. levothyroxine (LEVOXYL) 125 mcg tablet Take 1 tablet by mouth once daily. Take on empty stomach. For thyroid. mirtazapine (REMERON) 7.5 mg tablet Take 1 tablet by mouth daily at bedtime. levonorgestrel (MIRENA) 21 mcg/24hr (up to 8 yrs) 52 mg IUD 1 each by INTRAUTERINE route one time only for 1 dose. magnesium hydroxide (MOM) 400 mg/5 mL suspension Take 30 mL by mouth once daily as needed. fluorometholone (FML LIQUID FILM) 0.1 % ophthalmic suspension Use 1 drop in both eyes two times a day. nitroglycerin sublingual (NITROQUICK) 0.4 mg SL tablet Dissolve 0.4 mg under the tongue every 5 minutes as needed for chest pain. polyethylene glycol 3350 (MIRALAX) 17 gram/dose powder Take by mouth once daily. Dissolve dose in 4 - 8 ounces of liquid and take as directed. acetaminophen (TYLENOL) 500 mg tablet Take 1,000 mg by mouth twice daily. Diaper,Brief, Adult,Disposable (DEPEND UNDERWEAR FOR WOMEN XL) Use 5/day as needed for urinary incontinence COMPOUNDED PRESCRIPTI (more content not included)... Normal [facility] Comprehensive metabolic 2000 panelon 09-15-2024 Albumin [Mass/Vol] 3.4 g/dL Low 3.9-4.9 [facility] Comment on above: Order Comment: Speci men Type: BLOOD SPECIMEN Ordering Facility: [facility] Address: [address] [place] [address] Performed By: #### 2 4331-1, 3016-3, 74520-2, 3023-7 #### [facility] CLIA [id number] [address] [place] [address] [place] ALP [Catalytic activity/Vol] 114 U/L Normal 34-123 [facility] Comment on above: Order Comment: Speci men Type: BLOOD SPECIMEN Ordering Facility: [facility] Address: [address] [place] [address] Performed By: #### 2 4331-1, 3015-3, 86074-2, 7 #### [facility] CLIA [id number] [address] [place], [place] [address] [place] ALT [Catalytic activity/Vol] 75 U/L High 7-38 [facility] Comment on above: Order Comment: Speci men Type: BLOOD SPECIMEN Ordering Facility: [facility] Address: [address] [place] [address] Performed By: #### 2 4331-1, 3016-3, 61402-1, 3023-7 #### [facility] CLIA [id number] [address] [place], [place] [address] [place] Anion gap [Moles/Vol] 13 mmol/L Normal 8-15 [facility] Comment on above: Order Comment: Speci men Type: BLOOD SPECIMEN Ordering Facility: [facility] Address: [address] [place] [address] Performed By: #### 2 4331-1, 3016-3, 92513-8, 302-7 #### [facility] CLIA [id number] [address] [place], [place] [address] [place] AST [Catalytic activity/Vol] 85 U/L High 13-35 [facility] Comment on above: Order Comment: Speci men Type: BLOOD SPECIMEN Ordering Facility: [facility] Address: [address] [place] [address] Performed By: #### 2 4331-1, 3016-3, 09900-5, 302-7 #### [facility] CLIA [id number] [address] [place], [place] [address] [place] Bilirubin [Mass/Vol] 0.2 mg/dL Normal 0.2-1.3 [facility] Comment on above: Order Comment: Speci men Type: BLOOD SPECIMEN Ordering Facility: [facility] Address: [address] [place] [address] Performed By: #### 2 4331-1, 3016-3, 72732-7, 302-7 #### [facility] CLIA [id number] [address] [place], [place] [address] [place] Calcium [Mass/Vol] 8.8 mg/dL Normal 8.5-10.2 [facility] Comment on above: Order Comment: Speci men Type: BLOOD SPECIMEN Ordering Facility: [facility] Address: [address] [place] [address] Performed By: #### 2 4331-1, 3016-3, 03868-2, 302-7 #### [facility] CLIA [id number] [address] [place] [address] [place] Chloride [Moles/Vol] 111 mmol/L High 98-107 [facility] Comment on above: Order Comment: Speci men Type: BLOOD SPECIMEN Ordering Facility: [facility] Address: [address] [place] [address] Performed By: #### 2 4331-1, 3016-3, 39869-2, 3024-7 #### [facility] CLIA [id number] [address] [place], [place] [address] [place] CO2 [Moles/Vol] 18 mmol/L Low 22-30 [facility] Comment on above: Order Comment: Speci men Type: BLOOD SPECIMEN Ordering Facility: [facility] Address: [address] [place] [address] Performed By: #### 2 4331-1, 3016-3, 84141-3, 3024-7 #### [facility] CLIA [id number] [address] [place], [place] [address] [place] Creatinine [Mass/Vol] 1.93 mg/dL High 0.58-0.96 [facility] Comment on above: Order Comment: Speci men Type: BLOOD SPECIMEN Ordering Facility: [facility] Address: [address] [place] [address] Performed By: #### 2 4331-1, 3016-3, 39749-6, 3024-7 #### [facility] CLIA [id number] [address] [place] [address] [place] Creatinine and Glomerular filtration rate.predicted panel (S/P/Bld) 26 mL/min/1.73m??? Low >=60 [facility] Comment on above: Order Comment: Speci men Type: BLOOD SPECIMEN Ordering Facility: [facility] Address: [address] [place], [place] [address] Result Comment: Kayy mated Glomerular Filtration Rate (eGFR) is calculated using the 2020 CKD-EPI creatinine equation. This equation utilizes serum creatinine, sex, and age as parameters. The creatinine assay has traceable calibration to isotope dilution-mass spectrometry. Refer to KDIGO guidelines for clinical interpretation. In patients with unstable renal function, e.g. those with acute kidney injury, the eGFR may not accurately reflect actual GFR. Performed By: #### 2 4331-1, 3016-3, 56014-4, 3023-7 #### [facility] CLIA [id number] [address] [place] [address] [place] Glucose [Mass/Vol] 85 mg/dL Normal 74-99 [facility] Comment on above: Order Comment: Lea monae Type: BLOOD SPECIMEN Ordering Facility: [facility] Address: [address] [place] [address] Result Comment: The [place] Diabetes Association (ADA) provides guidance for cutoff values for fasting glucose and random glucose. The ADA defines fasting as no caloric intake for at least 8 hours. Fasting plasma glucose results between 100 to 125 mg/dL indicate increased risk for diabetes (prediabetes). Fasting plasma glucose results greater than or equal to 126 mg/dL meet the criteria for diagnosis of diabetes. In the absence of unequivocal hyperglycemia, results should be confirmed by repeat testing. In a patient with classic symptoms of hyperglycemia or hyperglycemic crisis, random plasma glucose results greater than or equal to 200 mg/dL meet the criteria for diagnosis of diabetes. Reference: Standards of Medical Care in Diabetes 2016, [place] [employer]. Diabetes Care. 2016.39(Suppl 1). Performed By: #### 2 4331-1, 6-3, 74337-3, 7 #### [facility] CLIA [id number] [address] [place] [address] [place] Potassium [Moles/Vol] 5.6 mmol/L High 3.7-5.1 [facility] Comment on above: Order Comment: Lea monae Type: BLOOD SPECIMEN Ordering Facility: [facility] Address: [address] [place] [address] Performed By: #### 2 4331-1, 6-3, 29504-6, 3023-7 #### [facility] CLIA [id number] [address] [place] [address] [place] Protein [Mass/Vol] 6.2 g/dL Low 6.3-8.0 [facility] Comment on above: Order Comment: Speci men Type: BLOOD SPECIMEN Ordering Facility: [facility] Address: [address] [place], [place] [address] Performed By: #### 2 4331-1, 6-3, 29818-7, 3023-7 #### [facility] CLIA [id number] [address] [place] [address] [place] Sodium [Moles/Vol] 142 mmol/L Normal 136-144 [facility] Comment on above: Order Comment: Speci men Type: BLOOD SPECIMEN Ordering Facility: [facility] Address: [address] [place] [address] Performed By: #### 2 4331-1, 3015-3, 06665-9, 7 #### [facility] CLIA [id number] [address] [place] [address] [place] Urea nitrogen [Mass/Vol] 49 mg/dL High 7-21 [facility] Comment on above: Order Comment: Speci men Type: BLOOD SPECIMEN Ordering Facility: [facility] Address: [address] [place], [place] [address] Performed By: #### 2 4331-1, 3015-3, 55591-5, 7 #### [facility] CLIA [id number] [address] [place] [address] [place] NT-proBNP [facility] 09-15 Natriuretic peptide.B prohormone N-Terminal [Mass/Vol] 783 pg/mL High <450 [facility] Comment on above: Order Comment: Speci men Type: BLOOD SPECIMEN Ordering Facility: [facility] Address: [address] [place], [place] [address] Performed By: #### 2 4331-1, 3016-3, 61113-9, 3024-7 #### [facility] CLIA [id number] [address] [place] [address] [place] CNPNon 09-14-2024 CNPN Telephone (FAMPWS) MARI LOPEZ ([id number]) 1940 F Date Time Provider Department 09/14/24 [facility] During your visit today, we recorded the following information about you: Analia Gracia RN 09/14/2024 12:59 PM Signed Pt called in asking for her chest x-ray results. She states she thinks she has pneumonia. Please call and advise. KEVIN Ozuna Jordan L, DO 09/14/2024 9:21 PM Signed I think she needs to be assessed in the office. There are no definite signs of pneumonia, but clinical exam is needed to correlate and listen to her to make this judgement DO Samia Alamo Amanda, RN 09/15/2024 9:34 AM Signed Pts friend Alex called and is notified of providers message and instructions. She voices understanding. Tried to get her in with Dr Capone, but friend said there is no way she would be able to be ready by those appointment times. Pt scheduled with Michael Carter [employer]NY. Analia Gracia RN Allergies As of Date: 09/14/2024 Noted Allergy Reaction BACTRIM (SULFAMETHOXAZOLE-TRIMETH*0 07/23/2016 4 - Hives Comments: Blisters: head to toe IBUPROFEN 11/08/2015 2 - Rash KEFZOL (CEFAZOLIN SODIUM) 08/09/2018 4 - Hives PEANUT 03/31/2023 10 - Anaphylaxis SULFA (SULFONAMIDE ANTIBIOTICS) 07/23/2016 4 - Hives 16 - Unknown Comments: Blisters: head to toe Date Reviewed: 09/04/2024 Reviewed by: Deacon Valdez APRN.DIGITAL DATA ANALYST - Fully Assessed Reason for Visit: Results [95] Prescriptions as of 09/15/2024 - benzonatate (TESSALON PERLE) 100 mg capsule Take 1 capsule by mouth three times a day as needed for cough for up to 12 doses. - atorvastatin (LIPITOR) 40 mg tablet Take 1 tablet by mouth once daily. - bisacodyl (DULCOLAX) 10 mg supp 1 suppository by RECTAL route once daily as needed for constipation. - calcium acetate,phosphat bind, (PHOSLO) 667 mg capsule Take 1 capsule by mouth three times a day. - carvedilol (COREG) 6.25 mg tablet Take 1 tablet by mouth every 12 hours. - cholecalciferol (VITAMIN D3) 1,000 unit tab tablet Take 2 tablets by mouth once daily. - ferrous sulfate 325 mg (65 mg iron) tablet Take 1 tablet by mouth once daily. - furosemide (LASIX) 40 mg tablet Take 1 tablet by mouth every other day. - lacosamide (VIMPAT) 100 mg tab Take 1 tablet by mouth every 12 hours for 180 days. - levothyroxine (LEVOXYL) 125 mcg tablet Take 1 tablet by mouth once daily. Take on empty stomach. For thyroid. - mirtazapine (REMERON) 7.5 mg tablet Take 1 tablet by mouth daily at bedtime. - levonorgestrel (MIRENA) 21 mcg/24hr (up to 8 yrs) 52 mg IUD 1 each by INTRAUTERINE route one time only for 1 dose. - magnesium hydroxide (MOM) 400 mg/5 mL suspension Take 30 mL by mouth once daily as needed. - fluorometholone (FML LIQUID FILM) 0.1 % ophthalmic suspension Use 1 drop in both eyes two times a day. - nitroglycerin sublingual (NITROQUICK) 0.4 mg SL tablet Dissolve 0.4 mg under the tongue every 5 minutes as needed for chest pain. - polyethylene glycol 3350 (MIRALAX) 17 gram/dose powder Take by mouth once daily. Dissolve dose in 4 - 8 ounces of liquid and take as directed. - acetaminophen (TYLENOL) 500 mg tablet Take 1,000 mg by mouth twice daily. - Diaper,Brief, Adult,Disposable (DEPEND UNDERWEAR FOR WOMEN XL) Use 5/day as needed for urinary incontinence - COMPOUNDED PRESCRIPTION Stair lift - senna-docusate (SENNA-S) 8.6-50 mg per tablet Take 1 tablet by mouth once daily. Meds Comments as of 10/27/2016: Magnesium, zinc, Glucosamine-chondroitin, Fish-Oil Problem List As Of Date 09/14/2024 Noted Resolved Class 3 severe obesity with body mass index (BM*06/28/2003 BENIGN HYPERTENSION(aka HTN) [I10] 07/21/2003 ASTHMA UNSPECIFIED [J45.909] 07/21/2003 OTHER UNSPEC SLEEP APNEA(aka APNEA) [G47.30] 07/21/2003 Primary osteoarthritis of both knees [M17.0] 07/21/2003 THROMBOPHLEBITIS NOS(aka DVT) [I80.9] 07/21/2003 08/21/2009 PULMON EMBOLISM/INFARCT(aka EMBOLISM) [415.1] 07/21/2003 08/21/2009 VENTRAL HERNIA NEC [K43.9] 03/26/2004 07/01/2007 ASA CLASS III [1003] 05/07/2005 07/12/2021 INJURY TRUNK SITE NEC [RBS5732] 01/16/2006 07/01/2007 Anemia in chronic kidney disease (CKD) [N18.9, *03/17/2006 Non-Healing Surgical Wound [T81.89XA] 03/16/2007 05/18/2009 FEMALE STRESS INCONTINENCE [N39.3] 07/12/2008 MASS IN SUBCUTANEOUS TISSUE [R22.9] 07/21/2008 08/18/2018 Pain in Joint, Lower Leg [M25.569] 11/14/2008 08/21/2009 Rotator cuff syndrome [M75.100] 02/19/2011 Insomnia [G47.00] 07/30/2011 Screening for colon cancer [Z12.11] 11/24/2016 07/12/2021 Dyspepsia [R10.13] 11/24/2016 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 Hypothyroidism, acquired [E03.9] 04/19/2018 Renal failure [N19] 05/01/2020 Chronic midline low back pain with sciatica [M5*10/16/2021 Lymphedema [I89.0] 11/22/2021 Lumbar spondylosis [M47.816] 12/25/2021 (more content not included)... Normal [facility] CNPNon 09-12-2024 [facility]N [facility] MARI LOPE[facility] ([id number]) 1940 F Date Time Provider Department 09/12/24 [facility] During your visit today, we recorded the following information about you: Adela Pena LPN 09/12/2024 1:58 PM Signed Patient calling asking if PCP would give her order for chest xray. Patient is taking her second round of antibiotics, Doxycycline twice daily. She completes rx tomorrow, no fever, coughing up green secretions, wheezing. Patient said she is taking robitussin cough syrup which is not helping much. Offered appt patient said she has one next week with PCP. She wants to have chest xray done. Please advise Lizy Capone MD 09/12/2024 2:29 PM Signed OK for CXR as ordered MD Ziyad Masters Kathryn, MA 09/12/2024 2:44 PM Signed Pt notified. Alex Lackey MA Allergies As of Date: 09/12/2024 Noted Allergy Reaction BACTRIM (SULFAMETHOXAZOLE-TRIMETH*0 07/23/2016 4 - Hives Comments: Blisters: head to toe IBUPROFEN 11/08/2015 2 - Rash KEFZOL (CEFAZOLIN SODIUM) 08/09/2018 4 - Hives PEANUT 03/31/2023 10 - Anaphylaxis SULFA (SULFONAMIDE ANTIBIOTICS) 07/23/2016 4 - Hives 16 - Unknown Comments: Blisters: head to toe Date Reviewed: 09/04/2024 Reviewed by: Deacon Valdez APRN.DIGITAL DATA ANALYST - Fully Assessed Reason for Visit: Patient Question [9257] Orders [681] Primary Visit Diagnosis:Subacute cough [R05.2] Order(s):XR CHEST 2V FRONTAL/LAT [6001672] Order #: [id number] FUTURE Prescriptions as of 09/12/2024 - doxycycline monohydrate (MONODOX) 100 mg capsule Take 1 capsule by mouth two times a day for 5 days. - benzonatate (TESSALON PERLE) 100 mg capsule Take 1 capsule by mouth three times a day as needed for cough for up to 12 doses. - atorvastatin (LIPITOR) 40 mg tablet Take 1 tablet by mouth once daily. - bisacodyl (DULCOLAX) 10 mg supp 1 suppository by RECTAL route once daily as needed for constipation. - calcium acetate,phosphat bind, (PHOSLO) 667 mg capsule Take 1 capsule by mouth three times a day. - carvedilol (COREG) 6.25 mg tablet Take 1 tablet by mouth every 12 hours. - cholecalciferol (VITAMIN D3) 1,000 unit tab tablet Take 2 tablets by mouth once daily. - ferrous sulfate 325 mg (65 mg iron) tablet Take 1 tablet by mouth once daily. - furosemide (LASIX) 40 mg tablet Take 1 tablet by mouth every other day. - lacosamide (VIMPAT) 100 mg tab Take 1 tablet by mouth every 12 hours for 180 days. - levothyroxine (LEVOXYL) 125 mcg tablet Take 1 tablet by mouth once daily. Take on empty stomach. For thyroid. - mirtazapine (REMERON) 7.5 mg tablet Take 1 tablet by mouth daily at bedtime. - levonorgestrel (MIRENA) 21 mcg/24hr (up to 8 yrs) 52 mg IUD 1 each by INTRAUTERINE route one time only for 1 dose. - magnesium hydroxide (MOM) 400 mg/5 mL suspension Take 30 mL by mouth once daily as needed. - fluorometholone (FML LIQUID FILM) 0.1 % ophthalmic suspension Use 1 drop in both eyes two times a day. - nitroglycerin sublingual (NITROQUICK) 0.4 mg SL tablet Dissolve 0.4 mg under the tongue every 5 minutes as needed for chest pain. - polyethylene glycol 3350 (MIRALAX) 17 gram/dose powder Take by mouth once daily. Dissolve dose in 4 - 8 ounces of liquid and take as directed. - acetaminophen (TYLENOL) 500 mg tablet Take 1,000 mg by mouth twice daily. - Diaper,Brief, Adult,Disposable (DEPEND UNDERWEAR FOR WOMEN XL) Use 5/day as needed for urinary incontinence - COMPOUNDED PRESCRIPTION Stair lift - senna-docusate (SENNA-S) 8.6-50 mg per tablet Take 1 tablet by mouth once daily. Meds Comments as of 10/27/2016: Magnesium, zinc, Glucosamine-chondroitin, Fish-Oil Problem List As Of Date 09/12/2024 Noted Resolved Class 3 severe obesity with body mass index (BM*06/28/2003 BENIGN HYPERTENSION(aka HTN) [I10] 07/21/2003 ASTHMA UNSPECIFIED [J45.909] 07/21/2003 OTHER UNSPEC SLEEP APNEA(aka APNEA) [G47.30] 07/21/2003 Primary osteoarthritis of both knees [M17.0] 07/21/2003 THROMBOPHLEBITIS NOS(aka DVT) [I80.9] 07/21/2003 08/21/2009 PULMON EMBOLISM/INFARCT(aka EMBOLISM) [415.1] 07/21/2003 08/21/2009 VENTRAL HERNIA NEC [K43.9] 03/26/2004 07/01/2007 ASA CLASS III [1003] 05/07/2005 07/12/2021 INJURY TRUNK SITE NEC [OXQ2021] 01/16/2006 07/01/2007 Anemia in chronic kidney disease (CKD) [N18.9, *03/17/2006 Non-Healing Surgical Wound [T81.89XA] 03/16/2007 05/18/2009 FEMALE STRESS INCONTINENCE [N39.3] 07/12/2008 MASS IN SUBCUTANEOUS TISSUE [R22.9] 07/21/2008 08/18/2018 Pain in Joint, Lower Leg [M25.569] 11/14/2008 08/21/2009 Rotator cuff syndrome [M75.100] 02/19/2011 Insomnia [G47.00] 07/30/2011 Screening for colon cancer [Z12.11] 11/24/2016 07/12/2021 Dyspepsia [R10.13] 11/24/2016 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 Normal [facility] XR CHEST 2V FRONTAL/LATon XR CHEST 2V FRONTAL/LAT * * *Final Report* * * DATE OF EXAM: Sep 12 2024 4:11PM WOX [id number] - XR CHEST 2V FRONTAL/LAT / PROCEDURE REASON: Subacute cough * * * * Physician Interpretation * * * * EXAMINATION: CHEST RADIOGRAPH (2 VIEW FRONTAL and LATERAL) CLINICAL HISTORY: Subacute cough MQ: [id number] EXAM DATE/TIME: 09/12/2024 4:11 PM COMPARISON: 03/31/2023 RESULT: Lines, tubes, and devices: None. Lungs and pleura: No consolidation. The lungs are mildly hypoinflated with generalized vascular crowding in the perihilar regions and subsegmental atelectasis in the posterior lung bases. A component of superimposed peribronchial edema/airway inflammatory changes in the mid and lower lung zones cannot be excluded. Clinical correlation is recommended. No pleural effusion. No pneumothorax. Cardiomediastinal silhouette: The cardiomediastinal silhouette is mildly enlarged, exaggerated due to hypoinflated lungs. Atherosclerotic calcifications in the aortic arch.. Bones and soft tissues: Diffuse osteopenia with and degenerative changes across multiple levels in the thoracic spine. Exaggerated thoracic kyphotic curvature. Partly visualized left shoulder total reverse arthroplasty. Right upper quadrant abdominal surgical clips are again noted. IMPRESSION: See result. Steam Frame Operator: CHEIKH Transcribe Date/Time: Sep 14 2024 12:53A Dictated by : LIBAN SALCEDO MD This examination was interpreted and the report reviewed and electronically signed by: LIBAN SALCEDO MD on Sep 14 2024 12:55AM EST [id number] [facility] CNPNon 09-07-2024 CNPN Telephone (FAMPWS) MARI LOPEZ ([id number]) 1940 F Date Time Provider Department 09/07/24 LIZY CAPONEWS During your visit today, we recorded the following information about you: Josselin Baxter RN 09/07/2024 1:57 PM Signed Rosina with [facility] calling with pt update for PCP. Patient was evaluated in [facility] on 09/04/24 and was was ordered doxycycline and benzonatate for lower respiratory infection. At that time, EC provider did consider sending pt to ER, but after further assessment and strict precautions explained during visit, patient was able to return home. Rosina would like PCP to know that patient still has course crackles in lower lung areas, more in the right than left, and having green sputum production. No severe sx's noted. Pt is to complete her antibiotic tomorrow. Pt's NOV is scheduled with Dr. Capone on 09/22. Please call Nurse Rosina if PCP would aleyda to extend treatment or for any other orders. [phone]. KEVIN Escobar Mark D, MD 09/08/2024 3:55 PM Signed OK for continuation of both medications; Rxs sent to pharmacy MD Samia Masters Amanda, RN 09/08/2024 4:04 PM Signed Rosina with [facility] and Pt called and notified of providers message. They voice understanding. Analia Gracia RN Allergies As of Date: 09/07/2024 Noted Allergy Reaction BACTRIM (SULFAMETHOXAZOLE-TRIMETH*0 07/23/2016 4 - Hives Comments: Blisters: head to toe IBUPROFEN 11/08/2015 2 - Rash KEFZOL (CEFAZOLIN SODIUM) 08/09/2018 4 - Hives PEANUT 03/31/2023 10 - Anaphylaxis SULFA (SULFONAMIDE ANTIBIOTICS) 07/23/2016 4 - Hives 16 - Unknown Comments: Blisters: head to toe Date Reviewed: 09/04/2024 Reviewed by: Deacon Valdez APRN.DIGITAL DATA ANALYST - Fully Assessed Reason for Visit: Patient Update [1234] Visit Diagnosis:Lower respiratory infection [J22] Order(s):doxycycline monohydrate (MONODOX) 100 mg capsuleTake 1 capsule by mouth two times a day for 5 days.Disp: 10 capsuleRfl: 0 benzonatate (TESSALON PERLE) 100 mg capsuleTake 1 capsule by mouth three times a day as needed for cough for up to 12 doses.Disp: 12 capsuleRfl: 0 Prescriptions as of 09/08/2024 - doxycycline monohydrate (MONODOX) 100 mg capsule Take 1 capsule by mouth two times a day for 5 days. - benzonatate (TESSALON PERLE) 100 mg capsule Take 1 capsule by mouth three times a day as needed for cough for up to 12 doses. - atorvastatin (LIPITOR) 40 mg tablet Take 1 tablet by mouth once daily. - bisacodyl (DULCOLAX) 10 mg supp 1 suppository by RECTAL route once daily as needed for constipation. - calcium acetate,phosphat bind, (PHOSLO) 667 mg capsule Take 1 capsule by mouth three times a day. - carvedilol (COREG) 6.25 mg tablet Take 1 tablet by mouth every 12 hours. - cholecalciferol (VITAMIN D3) 1,000 unit tab tablet Take 2 tablets by mouth once daily. - ferrous sulfate 325 mg (65 mg iron) tablet Take 1 tablet by mouth once daily. - furosemide (LASIX) 40 mg tablet Take 1 tablet by mouth every other day. - lacosamide (VIMPAT) 100 mg tab Take 1 tablet by mouth every 12 hours for 180 days. - levothyroxine (LEVOXYL) 125 mcg tablet Take 1 tablet by mouth once daily. Take on empty stomach. For thyroid. - mirtazapine (REMERON) 7.5 mg tablet Take 1 tablet by mouth daily at bedtime. - levonorgestrel (MIRENA) 21 mcg/24hr (up to 8 yrs) 52 mg IUD 1 each by INTRAUTERINE route one time only for 1 dose. - magnesium hydroxide (MOM) 400 mg/5 mL suspension Take 30 mL by mouth once daily as needed. - fluorometholone (FML LIQUID FILM) 0.1 % ophthalmic suspension Use 1 drop in both eyes two times a day. - nitroglycerin sublingual (NITROQUICK) 0.4 mg SL tablet Dissolve 0.4 mg under the tongue every 5 minutes as needed for chest pain. - polyethylene glycol 3350 (MIRALAX) 17 gram/dose powder Take by mouth once daily. Dissolve dose in 4 - 8 ounces of liquid and take as directed. - acetaminophen (TYLENOL) 500 mg tablet Take 1,000 mg by mouth twice daily. - Diaper,Brief, Adult,Disposable (DEPEND UNDERWEAR FOR WOMEN XL) Use 5/day as needed for urinary incontinence - COMPOUNDED PRESCRIPTION Stair lift - senna-docusate (SENNA-S) 8.6-50 mg per tablet Take 1 tablet by mouth once daily. Meds Comments as of 10/27/2016: Magnesium, zinc, Glucosamine-chondroitin, Fish-Oil Problem List As Of Date 09/07/2024 Noted Resolved Class 3 severe obesity with body mass index (BM*06/28/2003 BENIGN HYPERTENSION(aka HTN) [I10] 07/21/2003 ASTHMA UNSPECIFIED [J45.909] 07/21/2003 OTHER UNSPEC SLEEP APNEA(aka APNEA) [G47.30] 07/21/2003 Primary osteoarthritis of both knees [M17.0] 07/21/2003 THROMBOPHLEBITIS NOS(aka DVT) [I80.9] 07/21/2003 08/21/2009 PULMON EMBOLISM/INFARCT(aka EMBOLISM) [415.1] 07/21/2003 08/21/2009 VENTRAL HERNIA NEC [K43.9] 03/26/2004 07/01/2007 ASA CLASS III [1003] 05/07/2005 07/12/2021 INJURY TRUNK SITE NEC [IMO0 (more content not included)... [facility] H AND P Exam - Surgicalon H&P Exam - Surgical [facility] MR/POSTOP.ANEon 09-06-2024 MR/POSTOP.ANE [facility] MR/DYERBJFK9or 09-06-2024 MR/POSTOPAN2 [facility] Operative Reporton Operative Report [facility] CNPNon 09-05-2024 CNPN Telephone (FAMPWS) MARI LOPEZ ([id number]) 1940 F Date Time Provider Department 09/05/24 LIZY CAPONE FAMPWS During your visit today, we recorded the following information about you: Alex Lackey MA 09/05/2024 11:41 AM Signed Pt friend Claudia came into office today stating that pt was at the now clinic and saw Neuro and was advised at both those visits for PCP to review her meds to determine what she is to be taking and not be taking. See med list on desk. She is almost out of the medications she was given when discharged from hospital. Any meds she needs to stay on will need refilled to [facility]. Asking for this to be done BHUMIKA as she is almost out of medications. MANJEET Reina Mark D, MD 09/05/2024 2:36 PM Signed Med list reviewed and prescriptions sent to [facility]. May stop Eliquis and Protonix MD Ziyad Masters Kathryn, MA 09/05/2024 3:15 PM Signed Pt notified and voiced understanding. MANJEET Reina Sherrie, RN 09/07/2024 1:43 PM Signed Rosina with [facility] calling. Updated of eliquis and pantoprazole being discontinued. Josselin Baxter RN Allergies As of Date: 09/05/2024 Noted Allergy Reaction BACTRIM (SULFAMETHOXAZOLE-TRIMETH*0 07/23/2016 4 - Hives Comments: Blisters: head to toe IBUPROFEN 11/08/2015 2 - Rash KEFZOL (CEFAZOLIN SODIUM) 08/09/2018 4 - Hives PEANUT 03/31/2023 10 - Anaphylaxis SULFA (SULFONAMIDE ANTIBIOTICS) 07/23/2016 4 - Hives 16 - Unknown Comments: Blisters: head to toe Date Reviewed: 09/04/2024 Reviewed by: Deacon Valdez APRN.DIGITAL DATA ANALYST - Fully Assessed Reason for Visit: Medication Question [4638] Primary Visit Diagnosis:Anemia in chronic kidney disease, unspecified CKD stage [N18.9, D63.1] Other Visit Diagnoses:Leg swelling [M79.89] Essential hypertension, benign [I10] Iron deficiency anemia due to chronic blood loss [D50.0] Hypothyroidism, acquired [E03.9] Seizures ([facility]) [R56.9] Insomnia, unspecified type [G47.00] CKD (chronic kidney disease) stage 4, GFR 15-29 ml/min ([facility]) [N18.4] Hyperlipidemia LDL goal <100 [E78.5] Chronic constipation [K59.09] Order(s):atorvastatin (LIPITOR) 40 mg tabletTake 1 tablet by mouth once daily.Disp: 90 tabletRfl: 3 bisacodyl (DULCOLAX) 10 mg supp1 suppository by RECTAL route once daily as needed for constipation.Disp: 10 suppositoryRfl: 5 calcium acetate,phosphat bind, (PHOSLO) 667 mg capsuleTake 1 capsule by mouth three times a day.Disp: 90 capsuleRfl: 3 carvedilol (COREG) 6.25 mg tabletTake 1 tablet by mouth every 12 hours.Disp: 180 tabletRfl: 3 cholecalciferol (VITAMIN D3) 1,000 unit tab tabletTake 2 tablets by mouth once daily.Disp: 180 tabletRfl: 3 ferrous sulfate 325 mg (65 mg iron) tabletTake 1 tablet by mouth once daily.Disp: 90 tabletRfl: 0 furosemide (LASIX) 40 mg tabletTake 1 tablet by mouth every other day.Disp: 45 tabletRfl: 3 lacosamide (VIMPAT) 100 mg tabTake 1 tablet by mouth every 12 hours for 180 days.Disp: 60 tabletRfl: 5 levothyroxine (LEVOXYL) 125 mcg tabletTake 1 tablet by mouth once daily. Take on empty stomach. For thyroid.Disp: 90 tabletRfl: 3 mirtazapine (REMERON) 7.5 mg tabletTake 1 tablet by mouth daily at bedtime.Disp: 30 tabletRfl: 2 Prescriptions as of 09/07/2024 - atorvastatin (LIPITOR) 40 mg tablet Take 1 tablet by mouth once daily. - bisacodyl (DULCOLAX) 10 mg supp 1 suppository by RECTAL route once daily as needed for constipation. - calcium acetate,phosphat bind, (PHOSLO) 667 mg capsule Take 1 capsule by mouth three times a day. - carvedilol (COREG) 6.25 mg tablet Take 1 tablet by mouth every 12 hours. - cholecalciferol (VITAMIN D3) 1,000 unit tab tablet Take 2 tablets by mouth once daily. - ferrous sulfate 325 mg (65 mg iron) tablet Take 1 tablet by mouth once daily. - furosemide (LASIX) 40 mg tablet Take 1 tablet by mouth every other day. - lacosamide (VIMPAT) 100 mg tab Take 1 tablet by mouth every 12 hours for 180 days. - levothyroxine (LEVOXYL) 125 mcg tablet Take 1 tablet by mouth once daily. Take on empty stomach. For thyroid. - mirtazapine (REMERON) 7.5 mg tablet Take 1 tablet by mouth daily at bedtime. - doxycycline monohydrate (MONODOX) 100 mg capsule Take 1 capsule by mouth two times a day for 5 days. - benzonatate (TESSALON PERLE) 100 mg capsule Take 1 capsule by mouth three times a day as needed for cough for up to 12 doses. - levonorgestrel (MIRENA) 21 mcg/24hr (up to 8 yrs) 52 mg IUD 1 each by INTRAUTERINE route one time only for 1 dose. - magnesium hydroxide (MOM) 400 mg/5 mL suspension Take 30 mL by mouth once daily as needed. - fluorometholone (FML LIQUID FILM) 0.1 % ophthalmic suspension Use 1 drop in both eyes two times a day. - nitroglycerin sublingual (NITROQUICK) 0.4 mg SL tablet Dissolve 0.4 mg under the tongue every 5 minutes as needed for chest pain. - polyethylene glycol (more content not included)... [facility] Neurology Visit Reporton Neurology Visit Report [facility] CNOVon 09-04-2024 CNOV Office Visit (UCWSTR ) MARI LOPEZ ([id number]) 1940 F Date Time Provider Department 09/04/24 2:30 PM DEACON VALDEZ UCWSTR During your visit today, we recorded the following information about you: Temperature Pulse Respiration Blood pressure 98.5 degrees 74/minute 18/minute 128/76 Weight 105.7 kg Deacon Valdez APRN.DIGITAL DATA ANALYST 09/04/2024 2:51 PM Signed This note was created using KeepRecipesriter. Subjective Mari Lopez is a 84 year old female. HPI Patient presents today complaining of some shortness of breath and wheezing which has been ongoing for the last 2 weeks. She denies any fevers. She notes that she was recently discharged from [facility] after having been hospitalized for sepsis. She denies any chest pain or recent weight gains. Review of Systems As above Objective BP 128/76 Pulse 74 Temp 36.9 ?C (98.5 ?F) (Tympanic) Resp 18 Wt 105.7 kg (233 lb) SpO2 95% BMI 42.62 kg/m? Physical Exam Vitals and nursing note reviewed. Constitutional: General: She is not in acute distress. Appearance: Normal appearance. She is obese. She is not ill-appearing. HENT: Head: Normocephalic. Mouth/Throat: Mouth: Mucous membranes are moist. Eyes: Conjunctiva/sclera: Conjunctivae normal. Cardiovascular: Rate and Rhythm: Normal rate and regular rhythm. Pulmonary: Effort: Pulmonary effort is normal. Breath sounds: Rhonchi and rales present. Musculoskeletal: General: Normal range of motion. Cervical back: Normal range of motion. Skin: General: Skin is warm and dry. Comments: Wound VAC to right leg noted Neurological: General: No focal deficit present. Mental Status: She is alert. Psychiatric: Mood and Affect: Mood normal. Behavior: Behavior normal. Assessment and Plan ASSESSMENT/PLAN: 1. Lower respiratory infection - ICD9: 519.8, ICD10: J22 On initial presentation I did consider sending patient to the emergency department however she easily ambulated with her walker back to the room and was in no respiratory distress. Patient denying any chest pain and noted 2 weeks of ongoing respiratory issues. I did review with patient and family that at this time we did not have x-ray available I did not have the ability to do any lab work. I reviewed with patient and family that all we could do was treat for possible pneumonia and patient could then follow-up closely with PCP. I explained the patient that it would not be unreasonable to go to the emergency department where further workup could be obtained including chest x-ray, lab work, and EKG. After discussion, patient prefers not to go to the emergency department and understands that we do have limited capabilities to treat. Patient was in no acute distress on my evaluation but did have some coarse lung sounds. She was started on doxycycline and given Tessalon Perles. She was given strict precautions that if she worsens in any way she need to go directly to the emergency department for further evaluation to which she was agreeable. - DOXYCYCLINE MONOHYDRATE 100 MG CAPSULE - BENZONATATE 100 MG CAPSULE Deacon Valdez APRN.CJ Referring Provider: SELF [200] Allergies As of Date: 09/04/2024 Noted Allergy Reaction BACTRIM (SULFAMETHOXAZOLE-TRIMETH*0 07/23/2016 4 - Hives Comments: Blisters: head to toe IBUPROFEN 11/08/2015 2 - Rash KEFZOL (CEFAZOLIN SODIUM) 08/09/2018 4 - Hives PEANUT 03/31/2023 10 - Anaphylaxis SULFA (SULFONAMIDE ANTIBIOTICS) 07/23/2016 4 - Hives 16 - Unknown Comments: Blisters: head to toe Date Reviewed: 09/04/2024 Reviewed by: Deacon Valdez APRN.DIGITAL DATA ANALYST - Fully Assessed Reason for Visit: Cough [28] Cmt: Cough, SOB and wheezing x 8 days Primary Visit Diagnosis:Lower respiratory infection [J22] Order(s):doxycycline monohydrate (MONODOX) 100 mg capsuleTake 1 capsule by mouth two times a day for 5 days.Disp: 10 capsuleRfl: 0 benzonatate (TESSALON PERLE) 100 mg capsuleTake 1 capsule by mouth three times a day as needed for cough for up to 12 doses.Disp: 12 capsuleRfl: 0 Prescriptions as of 09/04/2024 - doxycycline monohydrate (MONODOX) 100 mg capsule Take 1 capsule by mouth two times a day for 5 days. - benzonatate (TESSALON PERLE) 100 mg capsule Take 1 capsule by mouth three times a day as needed for cough for up to 12 doses. - levonorgestrel (MIRENA) 21 mcg/24hr (up to 8 yrs) 52 mg IUD 1 each by INTRAUTERINE route one time only for 1 dose. - furosemide (LASIX) 40 mg tablet Take 1 tablet by mouth every other day. - magnesium hydroxide (MOM) 400 mg/5 mL suspension Take 30 mL by mouth once daily as needed. - mirtazapine (REMERON) 15 mg tablet Take 7.5 mg by mouth daily at bedtime. - carvedilol (COREG) 6.25 mg tablet Take 1 tablet by mouth every 12 hours. - lacosamide (VIMPAT) 100 mg tab Take 100 mg by mouth every 12 hours. - atorvastatin (LIPITOR) 40 mg tablet Take 40 mg by mout (more content not included)... [facility] MR/PAT.ANEon 09-02-2024 MR/PAT.ANE [facility] MR/PAT.[facility] JOHNMARI Gerry ([id number]) 1940 F Date Time Provider Department 08/30/24 [facility] During your visit today, we recorded the following information about you: Lora Najera RN 08/30/2024 10:39 AM Signed Lora from [facility] calls and reports that patient started with home health services. Lora makes note of a couple different things: Patient is on iron tablets which is contradicted for someone with peanut allergies. Patient has been taking medication with no issues. Patient had discharged from [facility] with oxycodone orders of 5 mg every morning then 5 mg q4h PRN Pain. Lora does not think patient is taking medication regularly but asking if PCP ok with those orders? Patient has mirena IUD. Asking if that can be noted on patient's medication list? Please review and advise, KEVIN Traore Mark D, MD 08/30/2024 4:56 PM Signed OK to stay on iron as she is taking it. OK for pain med orders Mirena added to Med list. . MD Samia Masters Amanda, RN 09/01/2024 6:08 PM Signed Called and left a detailed voicemail notifying Lora from [facility] of providers message. Clinic phone number was left in case she had any questions. Analia Gracia RN Allergies As of Date: 08/30/2024 Noted Allergy Reaction BACTRIM (SULFAMETHOXAZOLE-TRIMETH*0 07/23/2016 4 - Hives Comments: Blisters: head to toe IBUPROFEN 11/08/2015 2 - Rash KEFZOL (CEFAZOLIN SODIUM) 08/09/2018 4 - Hives PEANUT 03/31/2023 10 - Anaphylaxis SULFA (SULFONAMIDE ANTIBIOTICS) 07/23/2016 4 - Hives 16 - Unknown Comments: Blisters: head to toe Date Reviewed: 08/22/2024 Reviewed by: Suzette Myles MA - Fully Assessed Reason for Visit: Patient Update [1234] Order(s):levonorgestrel (MIRENA) 21 mcg/24hr (up to 8 yrs) 52 mg IUD1 each by INTRAUTERINE route one time only for 1 dose.Disp: 1 eachRfl: 0 Prescriptions as of 09/01/2024 - levonorgestrel (MIRENA) 21 mcg/24hr (up to 8 yrs) 52 mg IUD 1 each by INTRAUTERINE route one time only for 1 dose. - ciprofloxacin HCl (CIPRO) 250 mg tablet Take 1 tablet by mouth two times a day for 7 days. - furosemide (LASIX) 40 mg tablet Take 1 tablet by mouth every other day. - magnesium hydroxide (MOM) 400 mg/5 mL suspension Take 30 mL by mouth once daily as needed. - mirtazapine (REMERON) 15 mg tablet Take 7.5 mg by mouth daily at bedtime. - carvedilol (COREG) 6.25 mg tablet Take 1 tablet by mouth every 12 hours. - lacosamide (VIMPAT) 100 mg tab Take 100 mg by mouth every 12 hours. - atorvastatin (LIPITOR) 40 mg tablet Take 40 mg by mouth once daily. - apixaban (ELIQUIS) 5 mg tab(s) Take 2.5 mg by mouth two times a day. - fluorometholone (FML LIQUID FILM) 0.1 % ophthalmic suspension Use 1 drop in both eyes two times a day. - ferrous sulfate 325 mg (65 mg iron) tablet Take 325 mg by mouth once daily. - bisacodyl (DULCOLAX) 10 mg supp 10 mg by RECTAL route once daily as needed for constipation. - oxyCODONE IR (ROXICODONE) 5 mg immediate release tablet Take 5 mg by mouth every 6 hours as needed for pain. - nitroglycerin sublingual (NITROQUICK) 0.4 mg SL tablet Dissolve 0.4 mg under the tongue every 5 minutes as needed for chest pain. - pantoprazole DR (PROTONIX) 40 mg tablet Take 1 tablet by mouth once daily. - dextromethorphan-guaiFENesi n (MUCINEX DM) 30-600 mg per tablet Take 1 tablet by mouth two times a day as needed. - ondansetron (ZOFRAN) 4 mg tablet Take 1 tablet by mouth every 4 hours as needed for nausea/vomiting. - levothyroxine (LEVOXYL) 125 mcg tablet Take 1 tablet by mouth once daily. Take on empty stomach. For thyroid. - polyethylene glycol 3350 (MIRALAX) 17 gram/dose powder Take by mouth once daily. Dissolve dose in 4 - 8 ounces of liquid and take as directed. - acetaminophen (TYLENOL) 500 mg tablet Take 1,000 mg by mouth twice daily. - Diaper,Brief, Adult,Disposable (DEPEND UNDERWEAR FOR WOMEN XL) Use 5/day as needed for urinary incontinence - COMPOUNDED PRESCRIPTION Stair lift - calcium acetate (PHOSLO) 667 mg capsule TAKE 1 CAPSULE BY MOUTH THREE TIMES DAILY. - cholecalciferol (VITAMIN D3) 1,000 unit tab tablet Take 2 tablets by mouth once daily. - senna-docusate (SENNA-S) 8.6-50 mg per tablet Take 1 tablet by mouth once daily. Meds Comments as of 10/27/2016: Magnesium, zinc, Glucosamine-chondroitin, Fish-Oil Problem List As Of Date 08/30/2024 Noted Resolved Class 3 severe obesity with body mass index (BM*06/28/2003 BENIGN HYPERTENSION(aka HTN) [I10] 07/21/2003 ASTHMA UNSPECIFIED [J45.909] 07/21/2003 OTHER UNSPEC SLEEP APNEA(aka APNEA) [G47.30] 07/21/2003 Primary osteoarthritis of both knees [M17.0] 07/21/2003 THROMBOPHLEBITIS NOS(aka DVT) [I80.9] 07/21/2003 08/21/2009 PULMON EMBOLISM/INFARCT(aka EMBOLISM) [415.1] 07/21/2003 08/21/2009 VENTRAL HERNIA NEC [K43.9] 03/26 (more content not included)... [facility] CNPNon 08-25-2024 CNPN Telephone (FAMPWS) MARI LOPEZ ([id number]) 1940 F Date Time Provider Department 08/25/24 [facility] During your visit today, we recorded the following information about you: Minna Hinton, RN 08/25/2024 12:31 PM Signed [place] intake coordinatior with [facility] Home Health calling in to say pt is being discharged from [facility] today. She has been referred to for SN, PT AND OT for lower leg wound care. Okay for Dr. Capone to follow pt. (He just saw pt on 08/22/24) Lizy Capone MD 08/25/2024 2:40 PM Signed Noted; agree MD Ziyad Masters Kathryn, MA 08/25/2024 2:42 PM Signed Discharge notes received. Alex Lackey MA Allergies As of Date: 08/25/2024 Noted Allergy Reaction BACTRIM (SULFAMETHOXAZOLE-TRIMETH*0 07/23/2016 4 - Hives Comments: Blisters: head to toe IBUPROFEN 11/08/2015 2 - Rash KEFZOL (CEFAZOLIN SODIUM) 08/09/2018 4 - Hives PEANUT 03/31/2023 10 - Anaphylaxis SULFA (SULFONAMIDE ANTIBIOTICS) 07/23/2016 4 - Hives 16 - Unknown Comments: Blisters: head to toe Date Reviewed: 08/22/2024 Reviewed by: Suzette Myles MA - Fully Assessed Reason for Visit: Home Care Management [1305] Prescriptions as of 08/25/2024 - ciprofloxacin HCl (CIPRO) 250 mg tablet Take 1 tablet by mouth two times a day for 7 days. - furosemide (LASIX) 40 mg tablet Take 1 tablet by mouth every other day. - magnesium hydroxide (MOM) 400 mg/5 mL suspension Take 30 mL by mouth once daily as needed. - mirtazapine (REMERON) 15 mg tablet Take 7.5 mg by mouth daily at bedtime. - carvedilol (COREG) 6.25 mg tablet Take 1 tablet by mouth every 12 hours. - lacosamide (VIMPAT) 100 mg tab Take 100 mg by mouth every 12 hours. - atorvastatin (LIPITOR) 40 mg tablet Take 40 mg by mouth once daily. - apixaban (ELIQUIS) 5 mg tab(s) Take 2.5 mg by mouth two times a day. - fluorometholone (FML LIQUID FILM) 0.1 % ophthalmic suspension Use 1 drop in both eyes two times a day. - ferrous sulfate 325 mg (65 mg iron) tablet Take 325 mg by mouth once daily. - bisacodyl (DULCOLAX) 10 mg supp 10 mg by RECTAL route once daily as needed for constipation. - oxyCODONE IR (ROXICODONE) 5 mg immediate release tablet Take 5 mg by mouth every 6 hours as needed for pain. - nitroglycerin sublingual (NITROQUICK) 0.4 mg SL tablet Dissolve 0.4 mg under the tongue every 5 minutes as needed for chest pain. - pantoprazole DR (PROTONIX) 40 mg tablet Take 1 tablet by mouth once daily. - dextromethorphan-guaiFENesi n (MUCINEX DM) 30-600 mg per tablet Take 1 tablet by mouth two times a day as needed. - ondansetron (ZOFRAN) 4 mg tablet Take 1 tablet by mouth every 4 hours as needed for nausea/vomiting. - levothyroxine (LEVOXYL) 125 mcg tablet Take 1 tablet by mouth once daily. Take on empty stomach. For thyroid. - polyethylene glycol 3350 (MIRALAX) 17 gram/dose powder Take by mouth once daily. Dissolve dose in 4 - 8 ounces of liquid and take as directed. - acetaminophen (TYLENOL) 500 mg tablet Take 1,000 mg by mouth twice daily. - Diaper,Brief, Adult,Disposable (DEPEND UNDERWEAR FOR WOMEN XL) Use 5/day as needed for urinary incontinence - COMPOUNDED PRESCRIPTION Stair lift - calcium acetate (PHOSLO) 667 mg capsule TAKE 1 CAPSULE BY MOUTH THREE TIMES DAILY. - cholecalciferol (VITAMIN D3) 1,000 unit tab tablet Take 2 tablets by mouth once daily. - senna-docusate (SENNA-S) 8.6-50 mg per tablet Take 1 tablet by mouth once daily. Meds Comments as of 10/27/2016: Magnesium, zinc, Glucosamine-chondroitin, Fish-Oil Problem List As Of Date 08/25/2024 Noted Resolved Class 3 severe obesity with body mass index (BM*06/28/2003 BENIGN HYPERTENSION(aka HTN) [I10] 07/21/2003 ASTHMA UNSPECIFIED [J45.909] 07/21/2003 OTHER UNSPEC SLEEP APNEA(aka APNEA) [G47.30] 07/21/2003 Primary osteoarthritis of both knees [M17.0] 07/21/2003 THROMBOPHLEBITIS NOS(aka DVT) [I80.9] 07/21/2003 08/21/2009 PULMON EMBOLISM/INFARCT(aka EMBOLISM) [415.1] 07/21/2003 08/21/2009 VENTRAL HERNIA NEC [K43.9] 03/26/2004 07/01/2007 ASA CLASS III [1003] 05/07/2005 07/12/2021 INJURY TRUNK SITE NEC [[id number]] 01/16/2006 07/01/2007 Anemia in chronic kidney disease (CKD) [N18.9, *03/17/2006 Non-Healing Surgical Wound [T81.89XA] 03/16/2007 05/18/2009 FEMALE STRESS INCONTINENCE [N39.3] 07/12/2008 MASS IN SUBCUTANEOUS TISSUE [R22.9] 07/21/2008 08/18/2018 Pain in Joint, Lower Leg [M25.569] 11/14/2008 08/21/2009 Rotator cuff syndrome [M75.100] 02/19/2011 Insomnia [G47.00] 07/30/2011 Screening for colon cancer [Z12.11] 11/24/2016 07/12/2021 Dyspepsia [R10.13] 11/24/2016 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 Normal [facility] CNPN Telephone (FAMPWS) MARI LOPEZ ([id number]) 1940 F Date Time Provider Department 08/25/24 [facility] During your visit today, we recorded the following information about you: Josselin Baxter RN 08/25/2024 9:33 AM Signed Krystle Villarreal CNP a provider at [facility] is calling to state that she will treat patient's recent abnormal urine culture result. Urine culture results have been faxed to her for pt's record. KEVIN Escobar Mark D, MD 08/25/2024 11:28 AM Signed Noted Lizy Capone MD Allergies As of Date: 08/25/2024 Noted Allergy Reaction BACTRIM (SULFAMETHOXAZOLE-TRIMETH*0 07/23/2016 4 - Hives Comments: Blisters: head to toe IBUPROFEN 11/08/2015 2 - Rash KEFZOL (CEFAZOLIN SODIUM) 08/09/2018 4 - Hives PEANUT 03/31/2023 10 - Anaphylaxis SULFA (SULFONAMIDE ANTIBIOTICS) 07/23/2016 4 - Hives 16 - Unknown Comments: Blisters: head to toe Date Reviewed: 08/22/2024 Reviewed by: Suzette Myles MA - Fully Assessed Reason for Visit: Results [95] Prescriptions as of 08/25/2024 - ciprofloxacin HCl (CIPRO) 250 mg tablet Take 1 tablet by mouth two times a day for 7 days. - furosemide (LASIX) 40 mg tablet Take 1 tablet by mouth every other day. - magnesium hydroxide (MOM) 400 mg/5 mL suspension Take 30 mL by mouth once daily as needed. - mirtazapine (REMERON) 15 mg tablet Take 7.5 mg by mouth daily at bedtime. - carvedilol (COREG) 6.25 mg tablet Take 1 tablet by mouth every 12 hours. - lacosamide (VIMPAT) 100 mg tab Take 100 mg by mouth every 12 hours. - atorvastatin (LIPITOR) 40 mg tablet Take 40 mg by mouth once daily. - apixaban (ELIQUIS) 5 mg tab(s) Take 2.5 mg by mouth two times a day. - fluorometholone (FML LIQUID FILM) 0.1 % ophthalmic suspension Use 1 drop in both eyes two times a day. - ferrous sulfate 325 mg (65 mg iron) tablet Take 325 mg by mouth once daily. - bisacodyl (DULCOLAX) 10 mg supp 10 mg by RECTAL route once daily as needed for constipation. - oxyCODONE IR (ROXICODONE) 5 mg immediate release tablet Take 5 mg by mouth every 6 hours as needed for pain. - nitroglycerin sublingual (NITROQUICK) 0.4 mg SL tablet Dissolve 0.4 mg under the tongue every 5 minutes as needed for chest pain. - pantoprazole DR (PROTONIX) 40 mg tablet Take 1 tablet by mouth once daily. - dextromethorphan-guaiFENesi n (MUCINEX DM) 30-600 mg per tablet Take 1 tablet by mouth two times a day as needed. - ondansetron (ZOFRAN) 4 mg tablet Take 1 tablet by mouth every 4 hours as needed for nausea/vomiting. - levothyroxine (LEVOXYL) 125 mcg tablet Take 1 tablet by mouth once daily. Take on empty stomach. For thyroid. - polyethylene glycol 3350 (MIRALAX) 17 gram/dose powder Take by mouth once daily. Dissolve dose in 4 - 8 ounces of liquid and take as directed. - acetaminophen (TYLENOL) 500 mg tablet Take 1,000 mg by mouth twice daily. - Diaper,Brief, Adult,Disposable (DEPEND UNDERWEAR FOR WOMEN XL) Use 5/day as needed for urinary incontinence - COMPOUNDED PRESCRIPTION Stair lift - calcium acetate (PHOSLO) 667 mg capsule TAKE 1 CAPSULE BY MOUTH THREE TIMES DAILY. - cholecalciferol (VITAMIN D3) 1,000 unit tab tablet Take 2 tablets by mouth once daily. - senna-docusate (SENNA-S) 8.6-50 mg per tablet Take 1 tablet by mouth once daily. Meds Comments as of 10/27/2016: Magnesium, zinc, Glucosamine-chondroitin, Fish-Oil Problem List As Of Date 08/25/2024 Noted Resolved Class 3 severe obesity with body mass index (BM*06/28/2003 BENIGN HYPERTENSION(aka HTN) [I10] 07/21/2003 ASTHMA UNSPECIFIED [J45.909] 07/21/2003 OTHER UNSPEC SLEEP APNEA(aka APNEA) [G47.30] 07/21/2003 Primary osteoarthritis of both knees [M17.0] 07/21/2003 THROMBOPHLEBITIS NOS(aka DVT) [I80.9] 07/21/2003 08/21/2009 PULMON EMBOLISM/INFARCT(aka EMBOLISM) [415.1] 07/21/2003 08/21/2009 VENTRAL HERNIA NEC [K43.9] 03/26/2004 07/01/2007 ASA CLASS III [1003] 05/07/2005 07/12/2021 INJURY TRUNK SITE NEC [[id number]] 01/16/2006 07/01/2007 Anemia in chronic kidney disease (CKD) [N18.9, *03/17/2006 Non-Healing Surgical Wound [T81.89XA] 03/16/2007 05/18/2009 FEMALE STRESS INCONTINENCE [N39.3] 07/12/2008 MASS IN SUBCUTANEOUS TISSUE [R22.9] 07/21/2008 08/18/2018 Pain in Joint, Lower Leg [M25.569] 11/14/2008 08/21/2009 Rotator cuff syndrome [M75.100] 02/19/2011 Insomnia [G47.00] 07/30/2011 Screening for colon cancer [Z12.11] 11/24/2016 07/12/2021 Dyspepsia [R10.13] 11/24/2016 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 [facility] Absolute lymphocyte countOrd ered By: Gustavo Castorena on 08-22-2024 Lymphocytes Auto (Unsp spec) [#/Vol] 1.73 10*3/uL 0.83-4.51 [facility] Anion gap in Serum or Plasma Ordered By: Gustavo Castorena on 08-22-2024 Anion gap [Moles/Vol] 12 mmol/L 5- [facility] Automated lymphocyte count a s percentage of total leukocytesOrdered By: Gustavo Castorena on 08-22-2024 Lymphocytes/100 WBC Auto (Unsp spec) 34.5 % [facility] BUN/creatinine ratioOrdered By: Sharrimountain viewmaryann Brownleeevelynechela on 08-22-2024 Urea nitrogen/Creatinine [Mass ratio] 20.6 mg/mg High 10- [facility] Bacteria Ur Culton Bacteria identified Cx Nom (U) ORGANISM ID: 1 >=100,000 CFU/ml Escherichia coli ORGANISM ID: 1 (ESCHERICHIA COLI) --------- ANTIBIOTIC INTERPRETATION ALEC STATUS REFERENCE RANGE --------- Ampicillin S <=2 F Susceptible <=8 , Intermediate >8 , Resistant >16 Cefazolin S <=4 F Susceptible 0-16 , Intermediate <0 or >16 , Resistant >16 For uncomplicated urinary tract infections, cefazolin results can be used to predict susceptibility or resistance to cephalexin. Ceftriaxone S <=1 F Susceptible <=1 , Intermediate >1 , Resistant >=4 Cefepime S <=1 F Susceptible <=2 , Susceptible-Dose Dependent >2 , Resistant >=16 Ertapenem S <=0.5 F Susceptible <=0.5 , Intermediate >.5 , Resistant >1 Meropenem S <=0.25 F Susceptible <=1 , Intermediate >1 , Resistant >2 Ampicillin/Sulbact S <=2 F Susceptible <=8 , Intermediate >8 , Resistant >16 Piperacillin/Tazobac S <=4 F Susceptible <16 , Susceptible-Dose Dependent >=16 , Resistant >=32 Gentamicin S <=1 F Susceptible <=2 , Intermediate >2 , Resistant >=8 Tobramycin S <=1 F Susceptible <4 , Intermediate >=4 , Resistant >=8 Trimeth sulfameth S <=20 F Susceptible <=40 , Resistant >40 Ciprofloxacin S <=0.25 F Susceptible <0.5 , Intermediate >=.5 , Resistant >=1 Nitrofurantoin S <=16 F Susceptible <=32 , Intermediate >32 , Resistant >64 Abnormal [facility] Comment on above: Performed By: #### 2 4331-1, 3016-3, 82234-9, 3024-7 #### [facility] CLIA [id number] [address] [place] [address] [place] Basophil percentageOrdered B y: Gustavo Castorena on 08-22-2024 Basophils/100 WBC (Bld) 0.6 % 0-1 [facility] CBC panel Auto (Bld)on 08-22 Erythrocyte distribution width (RBC) [Ratio] 16.4 % High 11.5 - 15.0 % [facility] Hematocrit (Bld) [Volume fraction] 31.1 % Low 36.0 - 46.0 % [facility] Hemoglobin (Bld) [Mass/Vol] 9.4 g/dL Low 11.5 - 15.5 g/dL [facility] Interpretation and review of laboratory results Abnormal [facility] MCH (RBC) [Entitic mass] 31.4 pg 26.0 - 34.0 pg [facility] MCHC (RBC) [Mass/Vol] 30.2 g/dL Low 30.5 - 36.0 g/dL [facility] MCV (RBC) [Entitic vol] 104 fL High 80.0 - 100.0 fL [facility] Nucleated RBC (Bld) [#/Vol] NINF [facility] Platelet mean volume (Bld) [Entitic vol] 13.1 fL High 9.0 - 12.7 fL [facility] Platelets (Bld) [#/Vol] 233 10*3/uL [facility] RBC (Bld) [#/Vol] 2.99 10*6/uL Low 3.90 - 5.20 m/uL [facility] WBC (Bld) [#/Vol] 7.12 10*3/uL [facility] Erythrocyte distribution width (RBC) [Ratio] 16.4 % High 11.5-15.0 [facility] Comment on above: Order Comment: Speci men Type: BLOOD SPECIMEN Ordering Facility: [facility] Address: [address] [place] [address] Performed By: #### 5 8410-2 #### [facility] IA [id number] [address] [place] [address] [place] Hematocrit (Bld) [Volume fraction] 31.1 % Low 36.0-46.0 [facility] Comment on above: Order Comment: Speci men Type: BLOOD SPECIMEN Ordering Facility: [facility] Address: [address] [place] [address] Performed By: #### 5 8410-2 #### [facility] CLIA [id number] [address] [place] [address] [place] Hemoglobin (Bld) [Mass/Vol] 9.4 g/dL Low 11.5-15.5 [facility] Comment on above: Order Comment: Speci men Type: BLOOD SPECIMEN Ordering Facility: [facility] Address: [address] [place] [address] Performed By: #### 5 8410-2 #### [facility] CLIA [id number] [address] [place] [address] [place] MCH (RBC) [Entitic mass] 31.4 pg Normal 26.0-34.0 [facility] Comment on above: Order Comment: Speci men Type: BLOOD SPECIMEN Ordering Facility: [facility] Address: [address] [place] [address] Performed By: #### 5 8410-2 #### [facility] CLIA [id number] [address] [place] [address] [place] MCHC (RBC) [Mass/Vol] 30.2 g/dL Low 30.5-36.0 [facility] Comment on above: Order Comment: Speci men Type: BLOOD SPECIMEN Ordering Facility: [facility] Address: [address] [place] [address] Performed By: #### 5 8410-2 #### [facility] CLIA [id number] [address] [place] [address] [place] MCV (RBC) [Entitic vol] 104.0 fL High 80.0-100.0 [facility] Comment on above: Order Comment: Speci men Type: BLOOD SPECIMEN Ordering Facility: [facility] Address: [address] [place] [address] Performed By: #### 5 8410-2 #### [facility] CLIA [id number] [address] [place] [address] [place] Nucleated RBC (Bld) [#/Vol] 10*3/uL Normal <0.01 [facility] Comment on above: Order Comment: Speci men Type: BLOOD SPECIMEN Ordering Facility: [facility] Address: [address] [place] [address] Performed By: #### 5 8410-2 #### [facility] CLIA [id number] [address] [place] [address] [place] Platelet mean volume (Bld) [Entitic vol] 13.1 fL High 9.0-12.7 [facility] Comment on above: Order Comment: Speci men Type: BLOOD SPECIMEN Ordering Facility: [facility] Address: [address] [place] [address] Performed By: #### 5 8410-2 #### [facility] CLIA [id number] [address] [place] [address] [place] Platelets (Bld) [#/Vol] 233 10*3/uL Normal 150-400 [facility] Comment on above: Order Comment: Speci men Type: BLOOD SPECIMEN Ordering Facility: [facility] Address: [address] [place] [address] Performed By: #### 5 8410-2 #### [facility] CLIA [id number] [address] [place] [address] [place] RBC (Bld) [#/Vol] 2.99 10*6/uL Low 3.90-5.20 [facility] Comment on above: Order Comment: Speci men Type: BLOOD SPECIMEN Ordering Facility: [facility] Address: [address] [place] [address] Performed By: #### 5 8410-2 #### [facility] CLIA [id number] [address] [place] [address] [place] WBC (Bld) [#/Vol] 7.12 10*3/uL Normal 3.70-11.00 [facility] Comment on above: Order Comment: Speci men Type: BLOOD SPECIMEN Ordering Facility: [facility] Address: [address] [place] [address] Performed By: #### 5 8410-2 #### [facility] CLIA [id number] [address] [place] [address] [place] CNOVon 08-22-2024 CNOV Office Visit (FAMPWS ) MARI LOPEZ ([id number]) 1940 F Date Time Provider Department 08/22/24 1:20 PM LIZY CAPONE During your visit today, we recorded the following information about you: Pulse Respiration Blood pressure Weight 61/minute 18/minute 124/72 105.7 kg Lizy Capone MD 08/22/2024 8:11 PM Signed Chief Complaint Patient presents with: F/U 6 Month: Hospital f/u HPI Mari Lopez is a 84 year old female who presents here today for 6 mo f/u. Pt here today for her routine follow up. Was last seen by Miryam Orozco CNP on 03/16/24 for a Hospital f/u. Since that time pt was re-admitted back in April into [facility] ICU for sepsis and kidney failure. Pt was intubated while admitted. She was then life flighted to [facility] ICU to see Neurology on 05/04/24 and discharged on 05/18/24 to a Rehab Facility, staying until 06/10/24. Pt was then d/c to [facility] rehab on 06/10/24 and has not yet been d/c from facility. Hoping to get d/c this week. Pt here today and wants to have lab work. Has cancelled appt's with all her Specialists. Uro - Believe that pt had UTI that turned septic causing her seizures and prolonged stay in the Hospital. Pt notes that she had a lot of burning and pain in her lower back. Would like to have recheck done. Neuro - Hx of seizure x 2 during admission at [facility]. Pt notes she had 3 seizures while her flight to [facility]. Is scheduled with [facility] in September. Pt reports today that she is supposed to be on medication for 6 months. Nephro - Follows with Dr. Casper. Hx of CKD. When in the hospital pt had kidney failure. Did not require dialysis. Cardio - Follows with [facility], Dr. Jackson. Hx of heart failure, and PE. Pt takes Eliquis 5 mg bid, ASA 81 mg once daily, Zestoretic 10-12.5 mg once daily, Lasix 40 mg once daily and Toprol XL 50 mg once daily. Pulm - Hx of pulmonary issues. Schedule with [facility], did see [facility]. Anemia - Hx of transfusion due to anemia. Has been having checks during stay at SNF. Insomnia - Previously on Ambien, currently taking Remeron 15 mg, 0.5 tab at bedtime. Pain - Has been treated with Oxycodone 5 mg 1 tab po QID due to chronic back pain and currently treatment of her right lower leg. Pt reports she had intensive PT due to being on her back for a prolonged period of time. Pt reports an incident that occurred while at [facility], where she was trying to get into her car, Therapist did not lock her wheelchair. She hit her right lower leg on the running board of her car causing a hematoma. Following with Dr. Lomax, has had to have area cleaned out a couple of times. Wound Center put in an order for [facility] to change dressing 3x per week. Currently wearing a wound vac. 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 Past medical history, appointments, medications, allergies reviewed. Previous Medical History PAST MEDICAL HISTORY Diagnosis Date Chronic airway obstruction, not elsewhere classified Essential hypertension, benign Insomnia 07/30/2011 Obesity, unspecified Open wound of knee, leg (except thigh), and ankle, complicated Other pulmonary embolism and infarction Phlebitis and thrombophlebitis of femoral vein (deep) (superficial) ([facility]) Unspecified sleep apnea Previous Surgical History PAST SURGICAL HISTORY Procedure Laterality Date ANESTHESIA HERNIA REPAIR LOWER ABDOMEN NOS 04/2004,05/11 gortex put in on 05/11 then taken out06/08 ARTHRP KNE CONDYLEANDPLATU MEDIALANDLAT COMPARTMENTS 1990 bilateral total knee s([place]) ARTHRP KNE CONDYLEANDPLATU MEDIALANDLAT COMPARTMENTS 10/24/2004 bilateral total knee revisions DELIVERY ONLY , low cervical CHOLECYSTECTOMY COLONOSCOPY FLX DX W/COLLJ SPEC WHEN PFRMD 11/17/2017 Colonoscopy DEBRIDEMENT SUBCUTANEOUS TISSUE 20 SQ CM/< 02/17/2007 LEFT LEG DEBRIDEMENT SUBCUTANEOUS TISSUE 20 SQ CM/< 02/20/2007 LEFT LEG DEBRIDEMENT SUBCUTANEOUS TISSUE 20 SQ CM/< 02/24/2007 LEFT LEG DEBRIDEMENT SUBCUTANEOUS TISSUE 20 SQ CM/< 02/26/2007 LEFT LEG DEBRIDEMENT SUBCUTANEOUS TISSUE 20 SQ CM/< 03/01/2007 LEFT LEG DEBRIDEMENT SUBCUTANEOUS TISSUE 20 SQ CM/< 03/03/2007 LEFT LEG ESOPHAGOGASTRODUODENOSCOPY TRANSORAL DIAGNOSTIC 11/17/2017 EGD GASTRIC BYPASS 07/2003 HEMORRHOIDECTOMY INTERNAL RUBBER BAND LIGATIONS HYSTEROSCOPY BX W/WO DANDC 01/07/2018 PAST SURGICAL HISTORY OF 04/10/2016 [place] and new knee cap put in right leg PAST SURGICAL HISTORY OF 04/25/2016 had to debri right leg wound with cellutitis infection SHOULDER SURGERY HX Left 02/22/2024 left reverse total shoulder. Dr. Klaus Omalley with [facility] Family History FAMILY HISTORY Problem Relation Age of Onset Cancer Mother ovarian Patient Allergies ALLERGIES Allergen Reactions Bactrim [Sulfametho* Hives Blisters: he (more content not included)... Normal [facility] Carbon dioxide, total [Moles /volume] in Central venous bloodOrdered By: Gustavo Castorena on 08-22-2024 CO2 [Moles/Vol] 18.6 mmol/L Low 21.0-32.0 [facility] Chloride assayOrdered By: Felix Castorena on 08-22-2024 Chloride [Moles/Vol] 113 mmol/L High 98-108 [facility] Comprehensive metabolic 2000 panelon 08-22-2024 Albumin [Mass/Vol] 3.5 g/dL Low 3.9-4.9 [facility] Comment on above: Order Comment: Speci men Type: BLOOD SPECIMEN Ordering Facility: [facility] Address: [address] [place] [address] Performed By: #### 2 4331-1, 3016-3, 45256-5, 7 #### [facility] CLIA [id number] [address] [place] [address] [place] ALP [Catalytic activity/Vol] 87 U/L Normal 34-123 [facility] Comment on above: Order Comment: Speci men Type: BLOOD SPECIMEN Ordering Facility: [facility] Address: [address] [place] [address] Performed By: #### 2 4331-1, 3016-3, 59624-2, 3023-7 #### [facility] CLIA [id number] [address] [place], [place] [address] [place] ALT [Catalytic activity/Vol] 20 U/L Normal 7-38 [facility] Comment on above: Order Comment: Speci men Type: BLOOD SPECIMEN Ordering Facility: [facility] Address: [address] [place] [address] Performed By: #### 2 4331-1, 3016-3, 34153-5, 302-7 #### [facility] CLIA [id number] [address] [place], [place] [address] [place] Anion gap [Moles/Vol] 12 mmol/L Normal 8-15 [facility] Comment on above: Order Comment: Speci men Type: BLOOD SPECIMEN Ordering Facility: [facility] Address: [address] [place] [address] Performed By: #### 2 4331-1, 6-3, 30860-2, 302-7 #### [facility] CLIA [id number] [address] [place] [address] [place] AST [Catalytic activity/Vol] 26 U/L Normal 13-35 [facility] Comment on above: Order Comment: Speci men Type: BLOOD SPECIMEN Ordering Facility: [facility] Address: [address] [place] [address] Performed By: #### 2 4331-1, 6-3, 74891-5, 302-7 #### [facility] CLIA [id number] [address] [place], [place] [address] [place] Bilirubin [Mass/Vol] 0.2 mg/dL Normal 0.2-1.3 [facility] Comment on above: Order Comment: Speci men Type: BLOOD SPECIMEN Ordering Facility: [facility] Address: [address] [place] [address] Performed By: #### 2 4331-1, 3016-3, 12311-0, 302-7 #### [facility] CLIA [id number] [address] [place], [place] [address] [place] Calcium [Mass/Vol] 8.7 mg/dL Normal 8.5-10.2 [facility] Comment on above: Order Comment: Speci men Type: BLOOD SPECIMEN Ordering Facility: [facility] Address: [address] [place] [address] Performed By: #### 2 4331-1, 3016-3, 55571-4, 302-7 #### [facility] CLIA [id number] [address] [place], [place] [address] [place] Chloride [Moles/Vol] 113 mmol/L High 98-107 [facility] Comment on above: Order Comment: Speci men Type: BLOOD SPECIMEN Ordering Facility: [facility] Address: [address] [place] [address] Performed By: #### 2 4331-1, 3016-3, 62907-7, 302-7 #### [facility] CLIA [id number] [address] [place], [place] [address] [place] CO2 [Moles/Vol] 17 mmol/L Low 22-30 [facility] Comment on above: Order Comment: Speci men Type: BLOOD SPECIMEN Ordering Facility: [facility] Address: [address] [place] [address] Performed By: #### 2 4331-1, 3016-3, 74318-0, 302-7 #### [facility] CLIA [id number] [address] [place], [place] [address] [place] Creatinine [Mass/Vol] 1.77 mg/dL High 0.58-0.96 [facility] Comment on above: Order Comment: Speci men Type: BLOOD SPECIMEN Ordering Facility: [facility] Address: [address] [place] [address] Performed By: #### 2 4331-1, 3016-3, 64136-7, 302-7 #### [facility] CLIA [id number] [address] [place] [address] [place] Creatinine and Glomerular filtration rate.predicted panel (S/P/Bld) 28 mL/min/1.73m??? Low >=60 [facility] Comment on above: Order Comment: Lea monae Type: BLOOD SPECIMEN Ordering Facility: [facility] Address: [address] [place] [address] Result Comment: Kayy mated Glomerular Filtration Rate (eGFR) is calculated using the 2020 CKD-EPI creatinine equation. This equation utilizes serum creatinine, sex, and age as parameters. The creatinine assay has traceable calibration to isotope dilution-mass spectrometry. Refer to KDIGO guidelines for clinical interpretation. In patients with unstable renal function, e.g. those with acute kidney injury, the eGFR may not accurately reflect actual GFR. Performed By: #### 2 4331-1, 3016-3, 72561-5, 3024-7 #### [facility] CLIA [id number] [address] [place] [address] [place] Glucose [Mass/Vol] 73 mg/dL Low 74-99 [facility] Comment on above: Order Comment: Lea monae Type: BLOOD SPECIMEN Ordering Facility: [facility] Address: [address] [place] [address] Result Comment: The [place] [employer] (ADA) provides guidance for cutoff values for fasting glucose and random glucose. The ADA defines fasting as no caloric intake for at least 8 hours. Fasting plasma glucose results between 100 to 125 mg/dL indicate increased risk for diabetes (prediabetes). Fasting plasma glucose results greater than or equal to 126 mg/dL meet the criteria for diagnosis of diabetes. In the absence of unequivocal hyperglycemia, results should be confirmed by repeat testing. In a patient with classic symptoms of hyperglycemia or hyperglycemic crisis, random plasma glucose results greater than or equal to 200 mg/dL meet the criteria for diagnosis of diabetes. Reference: Standards of Medical Care in Diabetes 2016, [place] [employer]. Diabetes Care. 2016.39(Suppl 1). Performed By: #### 2 4331-1, 3016-3, 40139-6, 3024-7 #### [facility] CLIA [id number] [address] [place] [address] [place] Potassium [Moles/Vol] 3.7 mmol/L Normal 3.7-5.1 [facility] Comment on above: Order Comment: Speci men Type: BLOOD SPECIMEN Ordering Facility: [facility] Address: [address] [place] [address] Performed By: #### 2 4331-1, 3016-3, 60781-7, 3023-7 #### [facility] CLIA [id number] [address] [place], [place] [address] [place] Protein [Mass/Vol] 6.2 g/dL Low 6.3-8.0 [facility] Comment on above: Order Comment: Speci men Type: BLOOD SPECIMEN Ordering Facility: [facility] Address: [address] [place] [address] Performed By: #### 2 4331-1, 3016-3, 68410-2, 3023-7 #### [facility] CLIA [id number] [address] [place], [place] [address] [place] Sodium [Moles/Vol] 142 mmol/L Normal 136-144 [facility] Comment on above: Order Comment: Speci men Type: BLOOD SPECIMEN Ordering Facility: [facility] Address: [address] [place] [address] Performed By: #### 2 4331-1, 3016-3, 37864-0, 7 #### [facility] CLIA [id number] [address] [place] [address] [place] Urea nitrogen [Mass/Vol] 37 mg/dL High 7-21 [facility] Comment on above: Order Comment: Speci men Type: BLOOD SPECIMEN Ordering Facility: [facility] Address: [address] [place], [place] [address] Performed By: #### 2 4331-1, 3016-3, 71334-1, 3023-7 #### [facility] CLIA [id number] [address] [facility] [place] 2[place] [id number] [place] Eosinophil percentageOrdered By: Gustavo Castorena on 08-22-2024 Eosinophils/100 WBC (Bld) 5.4 % High 0-5 [facility] Erythrocyte distribution wid th ratioOrdered By: Gustavo Castorena on 08-22-2024 Erythrocyte distribution width (RBC) [Ratio] 16.4 % High 11.6-14.6 [facility] Erythrocyte distribution wid th standard deviationOrdered By: Gustavo Castorena on 08-22-2024 Erythrocyte distribution width (RBC) [Ratio] 61.6 fl High 35.1-43.9 [facility] Glomerular filtration rate ( GFR) estimation/1.73 sq m using serum, plasma, or whole bOrdered By: Gustavo Castorena on 08-22-2024 GFR/1.73 sq M.predicted among non-blacks MDRD (S/P/Bld) [Vol rate/Area] 27 mL/min/{1.73_m2} Low >60 [facility] Hematocrit Auto (Bld) [Volum e fraction]Ordered By: Gustavo Castorena on 08-22-2024 Hematocrit (Bld) [Volume fraction] 28.3 % Low 37-47 [facility] Hemoglobin measurementOrdere d By: Gustavo Castorena on 08-22-2024 Hemoglobin (Bld) [Mass/Vol] 8.7 g/dL Low 12.0-15.0 [facility] Immature granulocytes/100 WB C Auto (Bld)Ordered By: Gustavo Castorena on 08-22-2024 Immature granulocytes/100 WBC (Bld) 0.400 % 0.0-0.9 [facility] Lipid 1996 panelon Cholesterol [Mass/Vol] 114 mg/dL Normal <200 [facility] Comment on above: Order Comment: Speci men Type: BLOOD SPECIMEN Ordering Facility: [facility] Address: [address] [place], [place] [address] Result Comment: <200 mg/dL, Desirable 200-239 mg/dL, Borderline high >239 mg/dL, High Performed By: #### 2 5679-1, 3016-3, 21415-3, 3023-7 #### [facility] CLIA [id number] [address] [place] [address] [place] Cholesterol in HDL [Mass/Vol] 37 mg/dL Low >39 [facility] Comment on above: Order Comment: Speci men Type: BLOOD SPECIMEN Ordering Facility: [facility] Address: [address] [place] [address] Result Comment: 40-5 9 mg/dL, Acceptable >59 mg/dL, High: Negative risk factor for coronary heart disease <40 mg/dL, Low: Positive risk factor for coronary heart disease Performed By: #### 2 4331-1, 6-3, 53030-8, 7 #### [facility] CLIA [id number] [address] [place] [address] [place] Cholesterol in LDL [Mass/Vol] 57 mg/dL Normal <100 [facility] Comment on above: Order Comment: Speci men Type: BLOOD SPECIMEN Ordering Facility: [facility] Address: [address] [place] [address] Result Comment: <100 mg/dL, Optimal 100-129 mg/dL, Near optimal/above optimal 130-159 mg/dL, Borderline high 160-189 mg/dL, High >189 mg/dL, Very high Secondary prevention optimal LDL Cholesterol levels are recommended to be <70 mg/dL LDL cholesterol is calculated using the Otoole-NIH equation. Performed By: #### 2 4331-1, 6-3, 26266-1, 7 #### [facility] CLIA [id number] [address] [place] [address] [place] Cholesterol in LDL/Cholesterol in HDL [Mass ratio] 1.54 {ratio} Normal <2.54 [facility] Comment on above: Order Comment: Speci men Type: BLOOD SPECIMEN Ordering Facility: [facility] Address: [address] [place] [address] Result Comment: Jaycob engel: 1. National Cholesterol Education Program ATP III Guideline At-A-Glance Quick Desk Reference: National Heart, Lung, and Blood [place]. National Institutes of Health. 2001: NIH Publication No. 01-3305. 2. An International Atherosclerosis Society position paper: global recommendations for the management of dyslipidemia: executive summary, Atherosclerosis. 2014: 232(2):410-413. Performed By: #### 2 4331-1, 3016-3, 50935-4, 3024-7 #### [facility] CLIA [id number] [address] [place] [address] [place] Cholesterol in VLDL [Mass/Vol] 16 mg/dL Normal <30 [facility] Comment on above: Order Comment: Lea monae Type: BLOOD SPECIMEN Ordering Facility: [facility] Address: [address] [place] [address] Performed By: #### 2 4331-1, 3016-3, 46926-2, 302-7 #### [facility] CLIA [id number] [address] [place] [address] [place] Cholesterol non HDL [Mass/Vol] 77 mg/dL Normal <130 [facility] Comment on above: Order Comment: Lea monae Type: BLOOD SPECIMEN Ordering Facility: [facility] Address: [address] [place] [address] Result Comment: <130 mg/dL, Optimal 130-159 mg/dL, Near optimal/above optimal 160-189 mg/dL, Borderline high 190-219 mg/dL, High >219 mg/dL, Very high Secondary prevention optimal non HDL Cholesterol levels are recommended to be <100 mg/dL Performed By: #### 2 4331-1, 3016-3, 86002-5, 3024-7 #### [facility] CLIA [id number] [address] [place] [address] [place] Cholesterol.total/Chol esterol in HDL [Mass ratio] 3.08 {ratio} Normal <5.10 [facility] Comment on above: Order Comment: Lea monae Type: BLOOD SPECIMEN Ordering Facility: [facility] Address: [address] [place] [address] Performed By: #### 2 4331-1, 3016-3, 88254-5, 302-7 #### [facility] CLIA [id number] [address] [place] [address] [place] FASTING TIME 6 hrs Normal [facility] Comment on above: Order Comment: Speci men Type: BLOOD SPECIMEN Ordering Facility: [facility] Address: [address] [place] [address] Performed By: #### 2 4331-1, 3016-3, 19659-7, 3024-7 #### [facility] CLIA [id number] [address] [place] [address] [place] Triglyceride [Mass/Vol] 108 mg/dL Normal <150 [facility] Comment on above: Order Comment: Speci men Type: BLOOD SPECIMEN Ordering Facility: [facility] Address: [address] [place] [address] Result Comment: <150 mg/dL, Normal 150-199 mg/dL, Borderline high 200-499 mg/dL, High >499 mg/dL, Very high Performed By: #### 2 4331-1, 3016-3, 95746-7, 302-7 #### [facility] CLIA [id number] [address] [place] [address] [place] MCV (mean corpuscular volume ) determinationOrdered By: Gustavo Castorena on 08-22-2024 MCV (RBC) [Entitic vol] 103.3 fL High 81-99 [facility] Mean corpuscular hemoglobin (MCH) determinationOrdered By: Gustavo Castorena on 08-22-2024 MCH (RBC) [Entitic mass] 31.8 pg 27.0-32.0 [facility] Monocyte percentageOrdered B y: Gustavo Castorena on 08-22-2024 Monocytes/100 WBC (Bld) 7.8 % 0-10 [facility] Neutrophil percentageOrdered By: Gustavo Castorena on 08-22-2024 Neutrophils/100 WBC (Bld) 51.3 % 47-70 [facility] Platelet countOrdered By: Felix roblero Bradifrah on 08-22-2024 Platelets (Bld) [#/Vol] 193 10*3/uL 150-450 [facility] Potassium measurement (mass/ volume)Ordered By: Gustavo Bradevelynechela on 08-22-2024 Potassium (Unsp spec) [Mass/Vol] 3.5 mmol/L 3.3-5.1 [facility] RBC Auto (Bld) [#/Vol]Ordere d By: Gustavo Bradifrah on 08-22-2024 RBC (Bld) [#/Vol] 2.74 10*6/uL Low 4.2-5.4 [facility] Serum creatinine measurement (mass/volume)Ordered By: Gustavo Bradevelynechela on 08-22-2024 Creatinine [Mass/Vol] 1.86 mg/dL High 0.70-1.20 [facility] Serum glucose measurement (m ass/volume)Ordered By: Felixeugenerubiamaryann Brownleeevelynechela on 08-22-2024 Glucose [Mass/Vol] 79 mg/dL 70-99 [facility] Serum or plasma calcium farheen urement (mass/volume)Ordered By: Gustavo Bradifrah on 08-22-2024 Calcium [Mass/Vol] 8.4 mg/dL 7.6-11.0 [facility] Serum or plasma urea nitroge n measurement (mass/volume)Ordered By: Felixeugenerubiamaryann Brownleeevelynechela on 08-22-2024 Urea nitrogen [Mass/Vol] 38 mg/dL High 4-19 [facility] Sodium levelOrdered By: Sharri conrad Bradevelynechela on 08-22-2024 Sodium [Moles/Vol] 143 mmol/L 133-145 [facility] T4 Free SerPl-mCncon 025 Free T4 [Mass/Vol] 1.4 ng/dL Normal 0.9-1.7 [facility] Comment on above: Order Comment: Speci men Type: BLOOD SPECIMEN Ordering Facility: [facility] Address: [address] [place], [place] [address] Performed By: #### 2 9701-1, 3016-3, 34112-8, 3024-7 #### [facility] CLIA [id number] [address] [place] [address] [place] TSH SerPl-aCncon 08-22-2024 TSH Qn 3.360 m[IU]/L Normal 0.270-4.20 0 [facility] Comment on above: Order Comment: Speci men Type: BLOOD SPECIMEN Ordering Facility: [facility] Address: [address] [place] [address] Performed By: #### 2 4331-1, 3016-3, 31948-9, 3024-7 #### [facility] CLIA [id number] [address] [place] [address] [place] Urinalysis complete panel (U )on 08-22-2024 Bacteria uL uL High - 941 uL [facility] Bilirubin Ql (U) Negative Negative [facility] Clarity (Unsp spec) Clear Clear [facility] Color (U) Yellow Yellow [facility] Epithelial cells LM.HPF (Urine sed) [#/Area] None Seen /HPF [facility] Glucose Test strip (U) [Mass/Vol] Negative Negative [facility] Hemoglobin Ql (U) Negative Negative [facility] Hyaline casts (Urine sed) [#/Area] 1-3 /LPF Abnormal 0 /LPF [facility] Interpretation and review of laboratory results Abnormal [facility] Ketones Ql (U) Negative Negative [facility] Leukocyte esterase Test strip Ql (U) 2+ Abnormal Negative [facility] Nitrite Ql (U) Negative Negative [facility] pH (U) 5.5 [pH] NINF - 8.5 [facility] Protein (U) [Mass/Vol] Negative Negative [facility] RBC LM.HPF (Urine sed) [#/Area] 0-2 /HPF 0-2 /HPF [facility] Specific gravity (U) [Rel density] 1.01 1.005 - 1.030 [facility] Urobilinogen Ql (U) 0.2 EU/dL 0.2-1.0 EU/dL [facility] WBC LM.HPF (Urine sed) [#/Area] 11-20 /HPF Abnormal 0-5 /HPF [facility] This test was develo ped and its performance characteristics determined by [facility]'s [facility]alo Canales [facility] [place] ([facility]-PL[facility]). It has not been cleared or approved by the FDA. -[facility] is regulated under CLIA as qualified to perform high-complexity testing. This test is used for clinical purposes. It should not be regarded as investigational or for research. [facility] BACTERIA UL >9821 High Negative [facility] Comment on above: Order Comment: Speci men Type: BLOOD SPECIMEN Ordering Facility: [facility] Address: [address] [place] [address] Performed By: #### 2 4331-1, 3015-3, 52064-5, 7 #### [facility] CLIA [id number] [address] [place] [address] [place] Bilirubin Ql (U) Negative Normal Negative [facility] Comment on above: Order Comment: Speci men Type: BLOOD SPECIMEN Ordering Facility: [facility] Address: [address] [place] [address] Performed By: #### 2 4331-1, 3015-3, 89725-8, 7 #### [facility] CLIA [id number] [address] [place] [address] [place] Clarity (Unsp spec) Clear Normal Clear [facility] Comment on above: Order Comment: Speci men Type: BLOOD SPECIMEN Ordering Facility: [facility] Address: [address] [place] [address] Performed By: #### 2 4331-1, 6-3, 81899-8, 7 #### [facility] CLIA [id number] [address] [place] [address] [place] Color (U) Yellow Normal Yellow [facility] Comment on above: Order Comment: Speci men Type: BLOOD SPECIMEN Ordering Facility: [facility] Address: [address] [place] [address] Performed By: #### 2 4331-1, 3016-3, 60418-3, 3024-7 #### [facility] CLIA [id number] [address] [place] [address] [place] Epithelial cells LM.HPF (Urine sed) [#/Area] None Seen Normal [facility] Comment on above: Order Comment: Speci men Type: BLOOD SPECIMEN Ordering Facility: [facility] Address: [address] [place] [address] Performed By: #### 2 4331-1, 3016-3, 29183-6, 3023-7 #### [facility] CLIA [id number] [address] [place] [address] [place] Glucose Test strip (U) [Mass/Vol] Negative Normal Negative [facility] Comment on above: Order Comment: Speci men Type: BLOOD SPECIMEN Ordering Facility: [facility] Address: [address] [place] [address] Performed By: #### 2 4331-1, 3016-3, 51183-2, 7 #### [facility] CLIA [id number] [address] [place] [address] [place] Hemoglobin Ql (U) Negative Normal Negative [facility] Comment on above: Order Comment: Speci men Type: BLOOD SPECIMEN Ordering Facility: [facility] Address: [address] [place] [address] Performed By: #### 2 4331-1, 3016-3, 51967-4, 7 #### [facility] CLIA [id number] [address] [place] [address] [place] Hyaline casts (Urine sed) [#/Area] 1-3 /LPF Abnormal 0 /LPF [facility] Comment on above: Order Comment: Speci men Type: BLOOD SPECIMEN Ordering Facility: [facility] Address: [address] [place] [address] Performed By: #### 2 4331-1, 3016-3, 78397-4, 7 #### [facility] CLIA [id number] [address] [place] [address] [place] Ketones Ql (U) Negative Normal Negative [facility] Comment on above: Order Comment: Speci men Type: BLOOD SPECIMEN Ordering Facility: [facility] Address: [address] [place] [address] Performed By: #### 2 4331-1, 3015-3, 12250-0, 7 #### [facility] CLIA [id number] [address] [place] [address] [place] Leukocyte esterase Test strip Ql (U) 2+ Abnormal Negative [facility] Comment on above: Order Comment: Speci men Type: BLOOD SPECIMEN Ordering Facility: [facility] Address: [address] [place] [address] Performed By: #### 2 4331-1, 3015-3, 98592-0, 7 #### [facility] CLIA [id number] [address] [place] [address] [place] Nitrite Ql (U) Negative Normal Negative [facility] Comment on above: Order Comment: Speci men Type: BLOOD SPECIMEN Ordering Facility: [facility] Address: [address] [place] [address] Performed By: #### 2 4331-1, 3015-3, 34514-8, 7 #### [facility] CLIA [id number] [address] [place], [place] [address] [place] pH (U) 5.5 [pH] Normal <8.5 [facility] Comment on above: Order Comment: Speci men Type: BLOOD SPECIMEN Ordering Facility: [facility] Address: [address] [place] [address] Performed By: #### 2 4331-1, 3015-3, 08361-7, 7 #### [facility] CLIA [id number] [address] [place] [address] [place] Protein (U) [Mass/Vol] Negative Normal Negative [facility] Comment on above: Order Comment: Speci men Type: BLOOD SPECIMEN Ordering Facility: [facility] Address: [address] [place] [address] Performed By: #### 2 4331-1, 3016-3, 45868-2, 7 #### [facility] CLIA [id number] [address] [place] [address] [place] RBC LM.HPF (Urine sed) [#/Area] 0-2 /HPF Normal 0-2 /HPF [facility] Comment on above: Order Comment: Speci men Type: BLOOD SPECIMEN Ordering Facility: [facility] Address: [address] [place] [address] Performed By: #### 2 4331-1, 6-3, 14444-8, 7 #### [facility] CLIA [id number] [address] [place] [address] [place] Specific gravity (U) [Rel density] 1.010 Normal 1.005-1.03 0 [facility] Comment on above: Order Comment: Speci men Type: BLOOD SPECIMEN Ordering Facility: [facility] Address: [address] [place] [address] Performed By: #### 2 4331-1, 6-3, 01275-9, 7 #### [facility] CLIA [id number] [address] [place], [place] [address] [place] Urobilinogen Ql (U) 0.2 EU/dL Normal 0.2-1.0 EU/dL [facility] Comment on above: Order Comment: Speci men Type: BLOOD SPECIMEN Ordering Facility: [facility] Address: [address] [place] [address] Performed By: #### 2 4331-1, 6-3, 95738-3, 7 #### [facility] CLIA [id number] [facility] [place] [address] [place] WBC LM.HPF (Urine sed) [#/Area] 11-20 /HPF Abnormal 0-5 /HPF [facility] Comment on above: Order Comment: Speci men Type: BLOOD SPECIMEN Ordering Facility: [facility] Address: [address] [place] [address] Performed By: #### 2 4331-1, 3016-3, 28360-4, 3024-7 #### [facility] CLIA [id number] [address] [place] [address] [place] White blood cell (WBC) count Ordered By: Gustavo Castorena on 08-22-2024 WBC (Bld) [#/Vol] 5.0 10*3/uL 4.4-11.0 [facility] Absolute lymphocyte countOrd ered By: Gustavo Castorena on 08-18-2024 Lymphocytes Auto (Unsp spec) [#/Vol] 1.57 10*3/uL 0.83-4.51 [facility] Anion gap in Serum or Plasma Ordered By: Gustavo Castorena on 08-18-2024 Anion gap [Moles/Vol] 10 mmol/L - [facility] Automated lymphocyte count a s percentage of total leukocytesOrdered By: Gustavo Castorena on 08-18-2024 Lymphocytes/100 WBC Auto (Unsp spec) 33.2 % - [facility] BUN/creatinine ratioOrdered By: Gustavo Castorena on 08-18-2024 Urea nitrogen/Creatinine [Mass ratio] 22.8 mg/mg High 10-20 [facility] Basophil percentageOrdered B y: Gustavo Castorena on 08-18-2024 Basophils/100 WBC (Bld) 1.1 % High 0-1 [facility] Carbon dioxide, total [Moles /volume] in Central venous bloodOrdered By: Gustavo Castorena on 08-18-2024 CO2 [Moles/Vol] 18.3 mmol/L Low 21.0-32.0 [facility] Chloride assayOrdered By: Felix Castorena on 08-18-2024 Chloride [Moles/Vol] 114 mmol/L High 98-108 [facility] Eosinophil percentageOrdered By: Gustavo Castorena on 08-18-2024 Eosinophils/100 WBC (Bld) 4.9 % 0-5 [facility] Erythrocyte distribution wid th ratioOrdered By: Gustavo Castorena on 08-18-2024 Erythrocyte distribution width (RBC) [Ratio] 16.2 % High 11.6-14.6 [facility] Erythrocyte distribution wid th standard deviationOrdered By: Gustavo Castorena on 08-18-2024 Erythrocyte distribution width (RBC) [Ratio] 61.8 fl High 35.1-43.9 [facility] Glomerular filtration rate ( GFR) estimation/1.73 sq m using serum, plasma, or whole bOrdered By: Gustavo Castorena 08-18-2024 GFR/1.73 sq M.predicted among non-blacks MDRD (S/P/Bld) [Vol rate/Area] 29 mL/min/{1.73_m2} Low >60 [facility] Hematocrit Auto (Bld) [Volum e fraction]Ordered By: Gustavo Castorena 08-18-2024 Hematocrit (Bld) [Volume fraction] 26.8 % Low 37-47 [facility] Hemoglobin measurementOrdere d By: Gustavo Castorena 08-18-2024 Hemoglobin (Bld) [Mass/Vol] 8.1 g/dL Low 12.0-15.0 [facility] Immature granulocytes/100 WB C Auto (Bld)Ordered By: Gustavo Castorena 08-18-2024 Immature granulocytes/100 WBC (Bld) 0.200 % 0.0-0.9 [facility] MCV (mean corpuscular volume ) determinationOrdered By: Gustavo Castorena 08-18-2024 MCV (RBC) [Entitic vol] 103.9 fL High 81-99 [facility] Mean corpuscular hemoglobin (MCH) determinationOrdered By: Gustavo Castorena 08-18-2024 MCH (RBC) [Entitic mass] 31.4 pg 27.0-32.0 [facility] Monocyte percentageOrdered B y: Gustavo Castorena on 08-18-2024 Monocytes/100 WBC (Bld) 8.5 % 0-10 [facility] Neutrophil percentageOrdered By: Gustavo Castorena on 08-18-2024 Neutrophils/100 WBC (Bld) 52.1 % 47-70 [facility] Platelet countOrdered By: Felix Castorena on 08-18-2024 Platelets (Bld) [#/Vol] 194 10*3/uL 150-450 [facility] Potassium measurement (mass/ volume)Ordered By: Gustavo Bradifrah on 08-18-2024 Potassium (Unsp spec) [Mass/Vol] 3.3 mmol/L 3.3-5.1 [facility] RBC Auto (Bld) [#/Vol]Ordere d By: Gustavo Castorena on 08-18-2024 RBC (Bld) [#/Vol] 2.58 10*6/uL Low 4.2-5.4 [facility] Serum creatinine measurement (mass/volume)Ordered By: Gustavo Bradifrah on 08-18-2024 Creatinine [Mass/Vol] 1.72 mg/dL High 0.70-1.20 [facility] Serum glucose measurement (m ass/volume)Ordered By: Gustavo Bradifrah on 08-18-2024 Glucose [Mass/Vol] 78 mg/dL 70-99 [facility] Serum or plasma calcium farheen urement (mass/volume)Ordered By: Gustavo Bradifrah on 08-18-2024 Calcium [Mass/Vol] 8.2 mg/dL 7.6-11.0 [facility] Serum or plasma urea nitroge n measurement (mass/volume)Ordered By: Gustavo Bradifrah on 08-18-2024 Urea nitrogen [Mass/Vol] 39 mg/dL High 4-19 [facility] Sodium levelOrdered By: Felixeugene anamaria Bradevelynechela on 08-18-2024 Sodium [Moles/Vol] 142 mmol/L 133-145 [facility] White blood cell (WBC) count Ordered By: Felixeugenerubiamaryann Brownleeevelynechela on 08-18-2024 WBC (Bld) [#/Vol] 4.7 10*3/uL 4.4-11.0 [facility] Absolute lymphocyte countOrd ered By: Gustavo Castorena on 08-16-2024 Lymphocytes Auto (Unsp spec) [#/Vol] 1.62 10*3/uL 0.83-4.51 [facility] Anion gap in Serum or Plasma Ordered By: Gustavo Brownleeevelynechela on 08-16-2024 Anion gap [Moles/Vol] 11 mmol/L 5-15 [facility] Automated lymphocyte count a s percentage of total leukocytesOrdered By: Gustavo Brownleeevelynechela on 08-16-2024 Lymphocytes/100 WBC Auto (Unsp spec) 31.6 % 19-41 [facility] BUN/creatinine ratioOrdered By: eugenemountain viewmaryann Brownleeevelynechela on 08-16-2024 Urea nitrogen/Creatinine [Mass ratio] 21.3 mg/mg High 10-20 [facility] Basophil percentageOrdered B y: Gustavo Castorena on 08-16-2024 Basophils/100 WBC (Bld) 0.8 % 0-1 [facility] Carbon dioxide, total [Moles /volume] in Central venous bloodOrdered By: Felixeugenerubiamaryann Brownleeevelynechela on 08-16-2024 CO2 [Moles/Vol] 18.5 mmol/L Low 21.0-32.0 [facility] Chloride assayOrdered By: Felix yulianamaryann Brownleeevelynechela on 08-16-2024 Chloride [Moles/Vol] 113 mmol/L High 98-108 [facility] Eosinophil percentageOrdered By: [facility] Healthmaryann Brownleeevelynechela on 08-16-2024 Eosinophils/100 WBC (Bld) 5.1 % High 0-5 [facility] Erythrocyte distribution wid th ratioOrdered By: Gustavo Bradevelynechela on 08-16-2024 Erythrocyte distribution width (RBC) [Ratio] 16.1 % High 11.6-14.6 [facility] Erythrocyte distribution wid th standard deviationOrdered By: osbaldo Brownleeevelynechela on 08-16-2024 Erythrocyte distribution width (RBC) [Ratio] 61.9 fl High 35.1-43.9 [facility] Glomerular filtration rate ( GFR) estimation/1.73 sq m using serum, plasma, or whole bOrdered By: Gustavo Castorena on 08-16-2024 GFR/1.73 sq M.predicted among non-blacks MDRD (S/P/Bld) [Vol rate/Area] 24 mL/min/{1.73_m2} Low >60 [facility] Hematocrit Auto (Bld) [Volum e fraction]Ordered By: Gustavo Castorena on 08-16-2024 Hematocrit (Bld) [Volume fraction] 25.9 % Low 37-47 [facility] Hemoglobin measurementOrdere d By: osbaldo Castorena on 08-16-2024 Hemoglobin (Bld) [Mass/Vol] 7.8 g/dL Low 12.0-15.0 [facility] Immature granulocytes/100 WB C Auto (Bld)Ordered By: Gustavo Castorena on 08-16-2024 Immature granulocytes/100 WBC (Bld) 0.200 % 0.0-0.9 [facility] MCV (mean corpuscular volume ) determinationOrdered By: Gustavo Castorena on 08-16-2024 MCV (RBC) [Entitic vol] 105.3 fL High 81-99 [facility] Mean corpuscular hemoglobin (MCH) determinationOrdered By: [facility] Healthmaryann Castorena on 08-16-2024 MCH (RBC) [Entitic mass] 31.7 pg 27.0-32.0 [facility] Monocyte percentageOrdered B y: Gustavo Castorena on 08-16-2024 Monocytes/100 WBC (Bld) 9.4 % 0-10 [facility] Neutrophil percentageOrdered By: eugenemountain viewmaryann Castorena on 08-16-2024 Neutrophils/100 WBC (Bld) 52.9 % 47-70 [facility] Platelet countOrdered By: Felix Castorena on 08-16-2024 Platelets (Bld) [#/Vol] 190 10*3/uL 150-450 [facility] Potassium measurement (mass/ volume)Ordered By: Gustavo Castorena 08-16-2024 Potassium (Unsp spec) [Mass/Vol] 3.6 mmol/L 3.3-5.1 [facility] RBC Auto (Bld) [#/Vol]Ordere d By: Gustavo Castorena on 08-16-2024 RBC (Bld) [#/Vol] 2.46 10*6/uL Low 4.2-5.4 [facility] Serum creatinine measurement (mass/volume)Ordered By: Gustavo Castorena on 08-16-2024 Creatinine [Mass/Vol] 2.04 mg/dL High 0.70-1.20 [facility] Serum glucose measurement (m ass/volume)Ordered By: Gustavo Castorena on 08-16-2024 Glucose [Mass/Vol] 81 mg/dL 70-99 [facility] Serum or plasma calcium farheen urement (mass/volume)Ordered By: Gustavo Castorena on 08-16-2024 Calcium [Mass/Vol] 8.1 mg/dL 7.6-11.0 [facility] Serum or plasma urea nitroge n measurement (mass/volume)Ordered By: Gustavo Castorena on 08-16-2024 Urea nitrogen [Mass/Vol] 43 mg/dL High 4-19 [facility] Sodium levelOrdered By: Sharri Castorena on 08-16-2024 Sodium [Moles/Vol] 142 mmol/L 133-145 [facility] White blood cell (WBC) count Ordered By: Gustavo Castorena on 08-16-2024 WBC (Bld) [#/Vol] 5.1 10*3/uL 4.4-11.0 [facility] Wound Ctr History AND Physic jonathan 08-15-2024 Wound Ctr History & Physical Normal [facility] Plastic Surgery Visit Report on 08-12-2024 Plastic Surgery Visit Report Normal [facility] Absolute lymphocyte countOrd ered By: Gustavo Castorena on 08-08-2024 Lymphocytes Auto (Unsp spec) [#/Vol] 1.83 10*3/uL 0.83-4.51 [facility] Anion gap in Serum or Plasma Ordered By: Gustavo Castorena on 08-08-2024 Anion gap [Moles/Vol] 10 mmol/L 5-15 [facility] Automated lymphocyte count a s percentage of total leukocytesOrdered By: Gustavo Castorena on 08-08-2024 Lymphocytes/100 WBC Auto (Unsp spec) 37.8 % 19-41 [facility] BUN/creatinine ratioOrdered By: Gustavo Castorena on 08-08-2024 Urea nitrogen/Creatinine [Mass ratio] 18.6 mg/mg 10-20 [facility] Basophil percentageOrdered B y: Gustavo Castorena on 08-08-2024 Basophils/100 WBC (Bld) 1.0 % 0-1 [facility] Carbon dioxide, total [Moles /volume] in Central venous bloodOrdered By: Gustavo Castorena on 08-08-2024 CO2 [Moles/Vol] 21.2 mmol/L 21.0-32.0 [facility] Chloride assayOrdered By: Felix Castorena on 08-08-2024 Chloride [Moles/Vol] 109 mmol/L High 98-108 [facility] Eosinophil percentageOrdered By: Gustavo Castorena on 08-08-2024 Eosinophils/100 WBC (Bld) 6.4 % High 0-5 [facility] Erythrocyte distribution wid th ratioOrdered By: Gustavo Castorena on 08-08-2024 Erythrocyte distribution width (RBC) [Ratio] 16.5 % High 11.6-14.6 [facility] Erythrocyte distribution wid th standard deviationOrdered By: eugenemountain viewmaryann Castorena on 08-08-2024 Erythrocyte distribution width (RBC) [Ratio] 61.0 fl High 35.1-43.9 [facility] Glomerular filtration rate ( GFR) estimation/1.73 sq m using serum, plasma, or whole bOrdered By: Gustavo Castorena on 08-08-2024 GFR/1.73 sq M.predicted among non-blacks MDRD (S/P/Bld) [Vol rate/Area] 26 mL/min/{1.73_m2} Low >60 [facility] Hematocrit Auto (Bld) [Volum e fraction]Ordered By: Gustavo Castorena on 08-08-2024 Hematocrit (Bld) [Volume fraction] 26.3 % Low 37-47 [facility] Hemoglobin measurementOrdere d By: Gustavo Castorena on 08-08-2024 Hemoglobin (Bld) [Mass/Vol] 8.3 g/dL Low 12.0-15.0 [facility] Immature granulocytes/100 WB C Auto (Bld)Ordered By: Gustavo Castorena on 08-08-2024 Immature granulocytes/100 WBC (Bld) 0.000 % 0.0-0.9 [facility] MCV (mean corpuscular volume ) determinationOrdered By: osbaldo Castorena on 08-08-2024 MCV (RBC) [Entitic vol] 101.5 fL High 81-99 [facility] Mean corpuscular hemoglobin (MCH) determinationOrdered By: eugenemountain viewmaryann Castorena on 08-08-2024 MCH (RBC) [Entitic mass] 32.0 pg 27.0-32.0 [facility] Monocyte percentageOrdered B y: Gustavo Castorena on 08-08-2024 Monocytes/100 WBC (Bld) 10.3 % High 0-10 [facility] Neutrophil percentageOrdered By: [facility]maryann Castorena on 08-08-2024 Neutrophils/100 WBC (Bld) 44.5 % Low 47-70 [facility] Platelet countOrdered By: Felix eugeneanamaria Castorena on 08-08-2024 Platelets (Bld) [#/Vol] 202 10*3/uL 150-450 [facility] Potassium measurement (mass/ volume)Ordered By: Gustavo Castorena on 08-08-2024 Potassium (Unsp spec) [Mass/Vol] 3.4 mmol/L 3.3-5.1 [facility] RBC Auto (Bld) [#/Vol]Ordere d By: Gustavo Castorena on 08-08-2024 RBC (Bld) [#/Vol] 2.59 10*6/uL Low 4.2-5.4 [facility] Serum creatinine measurement (mass/volume)Ordered By: Gustavo Castorena on 08-08-2024 Creatinine [Mass/Vol] 1.90 mg/dL High 0.70-1.20 [facility] Serum glucose measurement (m ass/volume)Ordered By: Gustavo Castorena on 08-08-2024 Glucose [Mass/Vol] 78 mg/dL 70-99 [facility] Serum or plasma calcium farheen urement (mass/volume)Ordered By: Gustavo Castorena on 08-08-2024 Calcium [Mass/Vol] 8.0 mg/dL 7.6-11.0 [facility] Serum or plasma urea nitroge n measurement (mass/volume)Ordered By: Gustavo Castorena on 08-08-2024 Urea nitrogen [Mass/Vol] 35 mg/dL High 4-19 [facility] Sodium levelOrdered By: Sharri Castorena on 08-08-2024 Sodium [Moles/Vol] 140 mmol/L 133-145 [facility] White blood cell (WBC) count Ordered By: Gustavo Castorena on 08-08-2024 WBC (Bld) [#/Vol] 4.8 10*3/uL 4.4-11.0 [facility] Absolute lymphocyte countOrd ered By: Gustavo Castorena on 08-01-2024 Lymphocytes Auto (Unsp spec) [#/Vol] 1.62 10*3/uL 0.83-4.51 [facility] Anion gap in Serum or Plasma Ordered By: Gustavo Castorena on 08-01-2024 Anion gap [Moles/Vol] 11 mmol/L 5-15 [facility] Automated lymphocyte count a s percentage of total leukocytesOrdered By: Gustavo Castorena on 08-01-2024 Lymphocytes/100 WBC Auto (Unsp spec) 36.3 % 19-41 [facility] BUN/creatinine ratioOrdered By: Gustavo Castorena on 08-01-2024 Urea nitrogen/Creatinine [Mass ratio] 15.9 mg/mg 10-20 [facility] Basophil percentageOrdered B y: Gustavo Castorena on 08-01-2024 Basophils/100 WBC (Bld) 0.4 % 0-1 [facility] Carbon dioxide, total [Moles /volume] in Central venous bloodOrdered By: Gustavo Castorena on 08-01-2024 CO2 [Moles/Vol] 21.1 mmol/L 21.0-32.0 [facility] Chloride assayOrdered By: Felix Castorena on 08-01-2024 Chloride [Moles/Vol] 111 mmol/L High 98-108 [facility] Eosinophil percentageOrdered By: Gustavo Castorena 08-01-2024 Eosinophils/100 WBC (Bld) 6.7 % High 0-5 [facility] Erythrocyte distribution wid th ratioOrdered By: Gustavo Castorena on 08-01-2024 Erythrocyte distribution width (RBC) [Ratio] 16.9 % High 11.6-14.6 [facility] Erythrocyte distribution wid th standard deviationOrdered By: Gustavo Castorena on 08-01-2024 Erythrocyte distribution width (RBC) [Ratio] 63.1 fl High 35.1-43.9 [facility] Glomerular filtration rate ( GFR) estimation/1.73 sq m using serum, plasma, or whole bOrdered By: Gustavo Castorena on 08-01-2024 GFR/1.73 sq M.predicted among non-blacks MDRD (S/P/Bld) [Vol rate/Area] 28 mL/min/{1.73_m2} Low >60 [facility] Hematocrit Auto (Bld) [Volum e fraction]Ordered By: Gustavo Castorena 08-01-2024 Hematocrit (Bld) [Volume fraction] 27.1 % Low 37-47 [facility] Hemoglobin measurementOrdere d By: Gustavo Castorena 08-01-2024 Hemoglobin (Bld) [Mass/Vol] 8.5 g/dL Low 12.0-15.0 [facility] Immature granulocytes/100 WB C Auto (Bld)Ordered By: Gustavo Castorena 08-01-2024 Immature granulocytes/100 WBC (Bld) 0.700 % 0.0-0.9 [facility] MCV (mean corpuscular volume ) determinationOrdered By: Gustavo Castorena 08-01-2024 MCV (RBC) [Entitic vol] 101.1 fL High 81-99 [facility] Mean corpuscular hemoglobin (MCH) determinationOrdered By: Gustavo Castorena on 08-01-2024 MCH (RBC) [Entitic mass] 31.7 pg 27.0-32.0 [facility] Monocyte percentageOrdered B y: Gustavo Castorena on 08-01-2024 Monocytes/100 WBC (Bld) 9.0 % 0-10 [facility] Neutrophil percentageOrdered By: Gustavo Castorena on 08-01-2024 Neutrophils/100 WBC (Bld) 46.9 % Low 47-70 [facility] Platelet countOrdered By: Felix Castorena on 08-01-2024 Platelets (Bld) [#/Vol] 175 10*3/uL 150-450 [facility] Potassium measurement (mass/ volume)Ordered By: Gustavo Bradifrah on 08-01-2024 Potassium (Unsp spec) [Mass/Vol] 3.4 mmol/L 3.3-5.1 [facility] RBC Auto (Bld) [#/Vol]Ordere d By: Gustavo Castorena on 08-01-2024 RBC (Bld) [#/Vol] 2.68 10*6/uL Low 4.2-5.4 [facility] Serum creatinine measurement (mass/volume)Ordered By: Gustavo Castorena on 08-01-2024 Creatinine [Mass/Vol] 1.80 mg/dL High 0.70-1.20 [facility] Serum glucose measurement (m ass/volume)Ordered By: Felixeugeneanamaria Bradifrah 08-01-2024 Glucose [Mass/Vol] 80 mg/dL 70-99 [facility] Serum or plasma calcium farheen urement (mass/volume)Ordered By: Felixeugeneanamaria Bradifrah on 08-01-2024 Calcium [Mass/Vol] 8.1 mg/dL 7.6-11.0 [facility] Serum or plasma urea nitroge n measurement (mass/volume)Ordered By: Felixeugeneanamaria Bradevelynechela on 08-01-2024 Urea nitrogen [Mass/Vol] 29 mg/dL High 4-19 [facility] Sodium levelOrdered By: Felixeugene anamaria Bradevelynechela on 08-01-2024 Sodium [Moles/Vol] 143 mmol/L 133-145 [facility] White blood cell (WBC) count Ordered By: Gustavo Castorena on 08-01-2024 WBC (Bld) [#/Vol] 4.5 10*3/uL 4.4-11.0 [facility] Emergency Department Summary on 07-29-2024 Emergency Department Summary Normal [facility] Tibia Fibula 2 Viewson 07-29 Tibia Fibula 2 Views Normal [facility] Absolute lymphocyte countOrd ered By: Gustavo Castorena on 07-25-2024 Lymphocytes Auto (Unsp spec) [#/Vol] 1.75 10*3/uL 0.83-4.51 [facility] Absolute neutrophil countOrd ered By: Gustavo Castorena on 07-25-2024 Absolute neutrophil count 2.1 X10^3/uL 2.0-7.7 [facility] Anion gap [Moles/Vol]Ordered By: Gustavo Castorena on 07-25-2024 Anion gap in Serum or Plasma 9 5-15 [facility] Anion gap in Serum or Plasma Ordered By: Gustavo Castorena on 07-25-2024 Anion gap [Moles/Vol] 9 mmol/L 5- [facility] Automated lymphocyte count a s percentage of total leukocytesOrdered By: Gustavo Castorena on 07-25-2024 Lymphocytes/100 WBC Auto (Unsp spec) 38.2 % 19-41 [facility] BUN/creatinine ratioOrdered By: Gustavo Castorena on 07-25-2024 Urea nitrogen/Creatinine [Mass ratio] 20.2 mg/mg High 10-20 [facility] BUN/creatinine ratio 20.2 RATIO High 10-20 [facility] Basophil percentageOrdered B y: Gustavo Castorena on 07-25-2024 Basophils/100 WBC (Bld) 1.1 % High 0-1 [facility] Basophil percentage 1.1 % High 0-1 [facility] Calcium [Mass/Vol]Ordered By : Gustavo Castorena on 07-25-2024 Serum or plasma calcium measurement (mass/volume) 7.9 mg/dL 7.6-11.0 [facility] Carbon dioxide, total [Moles /volume] in Central venous bloodOrdered By: Gustavo Castorena on 07-25-2024 CO2 [Moles/Vol] 19.9 mmol/L Low 21.0-32.0 [facility] Carbon dioxide, total [Moles/volume] in Central venous blood 19.9 mmol/L Low 21.0-32.0 [facility] Chloride assayOrdered By: Felix Castorena on 07-25-2024 Chloride [Moles/Vol] 115 mmol/L High 98-108 [facility] Chloride assay 115 mmol/L High 98-108 [facility] Creatinine [Mass/Vol]Ordered By: Gustavo Castorena on 07-25-2024 Serum creatinine measurement (mass/volume) 1.64 mg/dL High 0.70-1.20 [facility] Eosinophil percentageOrdered By: Gustavo Castorena on 07-25-2024 Eosinophils/100 WBC (Bld) 7.0 % High 0-5 [facility] Eosinophil percentage 7.0 % High 0-5 [facility] Erythrocyte distribution wid th (RBC) [Ratio]Ordered By: Gustavo Castorena on 07-25-2024 Erythrocyte distribution width ratio 16.9 % High 11.6-14.6 [facility] Erythrocyte distribution width standard deviation 62.4 fl High 35.1-43.9 [facility] Erythrocyte distribution wid th ratioOrdered By: Gustavo Castorena on 07-25-2024 Erythrocyte distribution width (RBC) [Ratio] 16.9 % High 11.6-14.6 [facility] Erythrocyte distribution wid th standard deviationOrdered By: Gustavo Castorena on 07-25-2024 Erythrocyte distribution width (RBC) [Ratio] 62.4 fl High 35.1-43.9 [facility] GFR/1.73 sq M.predicted kayden g non-blacks MDRD (S/P/Bld) [Vol rate/Area]Ordered By: Gustavo Castorena on 07-25-2024 Glomerular filtration rate (GFR) estimation/1.73 sq m using serum, plasma, or whole b 31 Low >60 [facility] Glomerular filtration rate ( GFR) estimation/1.73 sq m using serum, plasma, or whole bOrdered By: Gustavo Castorena on 07-25-2024 GFR/1.73 sq M.predicted among non-blacks MDRD (S/P/Bld) [Vol rate/Area] 31 mL/min/{1.73_m2} Low >60 [facility] Glucose [Mass/Vol]Ordered By : Gustavo Castorena on 07-25-2024 Serum glucose measurement (mass/volume) 79 mg/dL 70-99 [facility] Hematocrit Auto (Bld) [Volum e fraction]Ordered By: Gustavo Castorena on 07-25-2024 Hematocrit (Bld) [Volume fraction] 27.6 % Low 37-47 [facility] Automated blood hematocrit (percentage) 27.6 % Low 37-47 [facility] Hemoglobin measurementOrdere d By: Gustavo Castorena on 07-25-2024 Hemoglobin (Bld) [Mass/Vol] 8.7 g/dL Low 12.0-15.0 [facility] Hemoglobin measurement 8.7 g/dL Low 12.0-15.0 [facility] Immature granulocytes/100 WB C Auto (Bld)Ordered By: Gustavo Castorena on 07-25-2024 Immature granulocytes/100 WBC (Bld) 0.000 % 0.0-0.9 [facility] Automated immature granulocyte percentage 0.000 % 0.0-0.9 [facility] Lymphocytes Auto (Unsp spec) [#/Vol]Ordered By: Gustavo Castorena on 07-25-2024 Absolute lymphocyte count 1.75 X10^3/uL 0.83-4.51 [facility] Lymphocytes/100 WBC Auto (Un sp spec)Ordered By: Gustavo Castorena on 07-25-2024 Automated lymphocyte count as percentage of total leukocytes 38.2 % 19-41 [facility] MCV (RBC) [Entitic vol]Order ed By: Gustavo Castorena on 07-25-2024 MCV (mean corpuscular volume) determination 100.7 fL High 81-99 [facility] MCV (mean corpuscular volume ) determinationOrdered By: Gustavo Castorena on 07-25-2024 MCV (RBC) [Entitic vol] 100.7 fL High 81-99 [facility] Mean corpuscular hemoglobin (MCH) determinationOrdered By: Gustavo Castorena on 07-25-2024 MCH (RBC) [Entitic mass] 31.8 pg 27.0-32.0 [facility] Mean corpuscular hemoglobin (MCH) determination 31.8 pg 27.0-32.0 [facility] Mean corpuscular hemoglobin concentration (MCHC) determinationOrdered By: Gustavo Castorena on 07-25-2024 Mean corpuscular hemoglobin concentration (MCHC) determination 31.5 g/dL Low 32-36 [facility] Mean platelet volume determi nationOrdered By: Gustavo Castorena on 07-25-2024 Mean platelet volume determination 12.5 fl High 6.2-12.0 [facility] Monocyte percentageOrdered B y: Gustavo Castorena on 07-25-2024 Monocytes/100 WBC (Bld) 8.7 % 0-10 [facility] Monocyte percentage 8.7 % 0-10 [facility] Neutrophil percentageOrdered By: Gustavo Castorena on 07-25-2024 Neutrophils/100 WBC (Bld) 45.0 % Low 47-70 [facility] Neutrophil percentage 45.0 % Low 47-70 [facility] Nucleated red blood cell per centageOrdered By: Gustavo Castorena on 07-25-2024 Nucleated red blood cell percentage 0 % 0-5 [facility] Platelet countOrdered By: Felix Castorena on 07-25-2024 Platelets (Bld) [#/Vol] 200 10*3/uL 150-450 [facility] Platelet count 200 K/mm3 150-450 [facility] Potassium (Unsp spec) [Mass/ Vol]Ordered By: Gustavo Castorena on 07-25-2024 Potassium measurement (mass/volume) 3.3 mmol/L 3.3-5.1 [facility] Potassium measurement (mass/ volume)Ordered By: Gustavo Castorena on 07-25-2024 Potassium (Unsp spec) [Mass/Vol] 3.3 mmol/L 3.3-5.1 [facility] RBC Auto (Bld) [#/Vol]Ordere d By: Gustavo Castorena on 07-25-2024 RBC (Bld) [#/Vol] 2.74 10*6/uL Low 4.2-5.4 [facility] Automated blood erythrocyte count 2.74 M/mm3 Low 4.2-5.4 [facility] Serum creatinine measurement (mass/volume)Ordered By: Gustavo Castorena on 07-25-2024 Creatinine [Mass/Vol] 1.64 mg/dL High 0.70-1.20 [facility] Serum glucose measurement (m ass/volume)Ordered By: Gustavo Castorena on 07-25-2024 Glucose [Mass/Vol] 79 mg/dL 70-99 [facility] Serum or plasma calcium farheen urement (mass/volume)Ordered By: Gustavo Castorena on 07-25-2024 Calcium [Mass/Vol] 7.9 mg/dL 7.6-11.0 [facility] Serum or plasma urea nitroge n measurement (mass/volume)Ordered By: Gustavo Castorena on 07-25-2024 Urea nitrogen [Mass/Vol] 33 mg/dL High 07-23 [facility] Sodium levelOrdered By: Sharri Castorena on 07-25-2024 Sodium [Moles/Vol] 144 mmol/L 133-145 [facility] Sodium level 144 mmol/L 133-145 [facility] TSH DL <= 0.005 mIU/L QnOrde red By: Gustavo Castorena on 07-25-2024 TSH Qn 1.750 uIU/mL 0.300-4.20 0 [facility] Serum or plasma thyroid stimulating hormone (TSH) measurement by high sensitivity met 1.750 uIU/mL 0.300-4.20 0 [facility] Urea nitrogen [Mass/Vol]Orde red By: Gustavo Castorena on 07-25-2024 Serum or plasma urea nitrogen measurement (mass/volume) 33 mg/dL High 07-23 [facility] White blood cell (WBC) count Ordered By: Gustavo Castorena on 07-25-2024 WBC (Bld) [#/Vol] 4.6 10*3/uL 4.4-11.0 [facility] White blood cell (WBC) count 4.6 K/mm3 4.4-11.0 [facility] Absolute lymphocyte countOrd ered By: Gustavo Castorena on 07-18-2024 Lymphocytes Auto (Unsp spec) [#/Vol] 1.66 10*3/uL 0.83-4.51 [facility] Absolute neutrophil countOrd ered By: Gustavo Castorena on 07-18-2024 Absolute neutrophil count 2.3 X10^3/uL 2.0-7.7 [facility] Anion gap [Moles/Vol]Ordered By: Gustavo Castorena on 07-18-2024 Anion gap in Serum or Plasma 11 - [facility] Anion gap in Serum or Plasma Ordered By: Gustavo Castorena on 07-18-2024 Anion gap [Moles/Vol] 11 mmol/L 08-18 [facility] Automated lymphocyte count a s percentage of total leukocytesOrdered By: Gustavo Castorena on 07-18-2024 Lymphocytes/100 WBC Auto (Unsp spec) 35.5 % 19-41 [facility] BUN/creatinine ratioOrdered By: Gustavo Castorena on 07-18-2024 Urea nitrogen/Creatinine [Mass ratio] 20.8 mg/mg High 10-20 [facility] BUN/creatinine ratio 20.8 RATIO High 10-20 [facility] Basophil percentageOrdered B y: Gustavo Castorena on 07-18-2024 Basophils/100 WBC (Bld) 0.9 % 0-1 [facility] Basophil percentage 0.9 % 0-1 [facility] Calcium [Mass/Vol]Ordered By : Gustavo Castorena on 07-18-2024 Serum or plasma calcium measurement (mass/volume) 8.2 mg/dL 7.6-11.0 [facility] Carbon dioxide, total [Moles /volume] in Central venous bloodOrdered By: Gustavo Castorena on 07-18-2024 CO2 [Moles/Vol] 20.2 mmol/L Low 21.0-32.0 [facility] Carbon dioxide, total [Moles/volume] in Central venous blood 20.2 mmol/L Low 21.0-32.0 [facility] Chloride assayOrdered By: Felix Castorena on 07-18-2024 Chloride [Moles/Vol] 113 mmol/L High 98-108 [facility] Chloride assay 113 mmol/L High 98-108 [facility] Creatinine [Mass/Vol]Ordered By: Gustavo Castorena on 07-18-2024 Serum creatinine measurement (mass/volume) 1.54 mg/dL High 0.70-1.20 [facility] Eosinophil percentageOrdered By: Gustavo Castorena on 07-18-2024 Eosinophils/100 WBC (Bld) 7.1 % High 0-5 [facility] Eosinophil percentage 7.1 % High 0-5 [facility] Erythrocyte distribution wid th (RBC) [Ratio]Ordered By: Gustavo Castorena on 07-18-2024 Erythrocyte distribution width ratio 16.6 % High 11.6-14.6 [facility] Erythrocyte distribution width standard deviation 61.6 fl High 35.1-43.9 [facility] Erythrocyte distribution wid th ratioOrdered By: Gustavo Castorena on 07-18-2024 Erythrocyte distribution width (RBC) [Ratio] 16.6 % High 11.6-14.6 [facility] Erythrocyte distribution wid th standard deviationOrdered By: Gustavo Castorena on 07-18-2024 Erythrocyte distribution width (RBC) [Ratio] 61.6 fl High 35.1-43.9 [facility] GFR/1.73 sq M.predicted kayden g non-blacks MDRD (S/P/Bld) [Vol rate/Area]Ordered By: Gustavo Castorena on 07-18-2024 Glomerular filtration rate (GFR) estimation/1.73 sq m using serum, plasma, or whole b 34 Low >60 [facility] Glomerular filtration rate ( GFR) estimation/1.73 sq m using serum, plasma, or whole bOrdered By: Gustavo Castorena on 07-18-2024 GFR/1.73 sq M.predicted among non-blacks MDRD (S/P/Bld) [Vol rate/Area] 34 mL/min/{1.73_m2} Low >60 [facility] Glucose [Mass/Vol]Ordered By : Gustavo Castorena on 07-18-2024 Serum glucose measurement (mass/volume) 79 mg/dL 70-99 [facility] Hematocrit Auto (Bld) [Volum e fraction]Ordered By: Gustavo Castorena on 07-18-2024 Hematocrit (Bld) [Volume fraction] 31.1 % Low 37-47 [facility] Automated blood hematocrit (percentage) 31.1 % Low 37-47 [facility] Hemoglobin measurementOrdere d By: Gustavo Castorena on 07-18-2024 Hemoglobin (Bld) [Mass/Vol] 9.6 g/dL Low 12.0-15.0 [facility] Hemoglobin measurement 9.6 g/dL Low 12.0-15.0 [facility] Immature granulocytes/100 WB C Auto (Bld)Ordered By: Gustavo Castorena on 07-18-2024 Immature granulocytes/100 WBC (Bld) 0.200 % 0.0-0.9 [facility] Automated immature granulocyte percentage 0.200 % 0.0-0.9 [facility] Lymphocytes Auto (Unsp spec) [#/Vol]Ordered By: Gustavo Castorena on 07-18-2024 Absolute lymphocyte count 1.66 X10^3/uL 0.83-4.51 [facility] Lymphocytes/100 WBC Auto (Un sp spec)Ordered By: Gustavo Castorena on 07-18-2024 Automated lymphocyte count as percentage of total leukocytes 35.5 % 19-41 [facility] MCV (RBC) [Entitic vol]Order ed By: Gustavo Castorena on 07-18-2024 MCV (mean corpuscular volume) determination 101.3 fL High 81-99 [facility] MCV (mean corpuscular volume ) determinationOrdered By: Gustavo Castorena on 07-18-2024 MCV (RBC) [Entitic vol] 101.3 fL High 81-99 [facility] Mean corpuscular hemoglobin (MCH) determinationOrdered By: Gustavo Castorena on 07-18-2024 MCH (RBC) [Entitic mass] 31.3 pg 27.0-32.0 [facility] Mean corpuscular hemoglobin (MCH) determination 31.3 pg 27.0-32.0 [facility] Mean corpuscular hemoglobin concentration (MCHC) determinationOrdered By: Gustavo Castorena on 07-18-2024 Mean corpuscular hemoglobin concentration (MCHC) determination 30.9 g/dL Low 32-36 [facility] Mean platelet volume determi nationOrdered By: Gustavo Castorena on 07-18-2024 Mean platelet volume determination 12.6 fl High 6.2-12.0 [facility] Monocyte percentageOrdered B y: Gustavo Castorena on 07-18-2024 Monocytes/100 WBC (Bld) 6.4 % 0-10 [facility] Monocyte percentage 6.4 % 0-10 [facility] Neutrophil percentageOrdered By: Gustavo Castorena on 07-18-2024 Neutrophils/100 WBC (Bld) 49.9 % 47-70 [facility] Neutrophil percentage 49.9 % 47-70 [facility] Nucleated red blood cell per centageOrdered By: Gustavo Castorena on 07-18-2024 Nucleated red blood cell percentage 0 % 0-5 [facility] Platelet countOrdered By: Felix Castorena on 07-18-2024 Platelets (Bld) [#/Vol] 229 10*3/uL 150-450 [facility] Platelet count 229 K/mm3 150-450 [facility] Potassium (Unsp spec) [Mass/ Vol]Ordered By: Gustavo Castorena on 07-18-2024 Potassium measurement (mass/volume) 3.2 mmol/L Low 3.3-5.1 [facility] Potassium measurement (mass/ volume)Ordered By: Gustavo Castorena on 07-18-2024 Potassium (Unsp spec) [Mass/Vol] 3.2 mmol/L Low 3.3-5.1 [facility] RBC Auto (Bld) [#/Vol]Ordere d By: Gustavo Castorena on 07-18-2024 RBC (Bld) [#/Vol] 3.07 10*6/uL Low 4.2-5.4 [facility] Automated blood erythrocyte count 3.07 M/mm3 Low 4.2-5.4 [facility] Serum creatinine measurement (mass/volume)Ordered By: Gustavo Castorena on 07-18-2024 Creatinine [Mass/Vol] 1.54 mg/dL High 0.70-1.20 [facility] Serum glucose measurement (m ass/volume)Ordered By: Gustavo Castorena on 07-18-2024 Glucose [Mass/Vol] 79 mg/dL 70-99 [facility] Serum or plasma calcium farheen urement (mass/volume)Ordered By: Gustavo Castorena on 07-18-2024 Calcium [Mass/Vol] 8.2 mg/dL 7.6-11.0 [facility] Serum or plasma urea nitroge n measurement (mass/volume)Ordered By: Gustavo Castorena on 07-18-2024 Urea nitrogen [Mass/Vol] 32 mg/dL High 07-23 [facility] Sodium levelOrdered By: Sharri Castorena on 07-18-2024 Sodium [Moles/Vol] 144 mmol/L 133-145 [facility] Sodium level 144 mmol/L 133-145 [facility] Urea nitrogen [Mass/Vol]Orde red By: Gustavo Castorena on 07-18-2024 Serum or plasma urea nitrogen measurement (mass/volume) 32 mg/dL High 07-23 [facility] White blood cell (WBC) count Ordered By: Gustavo Castorena on 07-18-2024 WBC (Bld) [#/Vol] 4.7 10*3/uL 4.4-11.0 [facility] White blood cell (WBC) count 4.7 K/mm3 4.4-11.0 [facility] Absolute lymphocyte countOrd ered By: Gustavo Castorena on 07-11-2024 Lymphocytes Auto (Unsp spec) [#/Vol] 1.36 10*3/uL 0.83-4.51 [facility] Absolute neutrophil countOrd ered By: Gustavo Castorena on 07-11-2024 Absolute neutrophil count 1.2 X10^3/uL Low 2.0-7.7 [facility] Anion gap [Moles/Vol]Ordered By: Gustavo Castorena on 07-11-2024 Anion gap in Serum or Plasma 11 5-15 [facility] Anion gap in Serum or Plasma Ordered By: Gustavo Castorena on 07-11-2024 Anion gap [Moles/Vol] 11 mmol/L 5-15 [facility] Automated lymphocyte count a s percentage of total leukocytesOrdered By: Gustavo Castorena on 07-11-2024 Lymphocytes/100 WBC Auto (Unsp spec) 43.9 % High 19-41 [facility] BUN/creatinine ratioOrdered By: Gustavo Castorena on 07-11-2024 Urea nitrogen/Creatinine [Mass ratio] 17.0 mg/mg 10- [facility] BUN/creatinine ratio 17.0 RATIO 10-20 [facility] Basophil percentageOrdered B y: Gustavo Castorena on 07-11-2024 Basophils/100 WBC (Bld) 1.0 % 0-1 [facility] Basophil percentage 1.0 % 0-1 [facility] Calcium [Mass/Vol]Ordered By : Gustavo Castorena on 07-11-2024 Serum or plasma calcium measurement (mass/volume) 8.0 mg/dL 7.6-11.0 [facility] Carbon dioxide, total [Moles /volume] in Central venous bloodOrdered By: Gustavo Castorena on 07-11-2024 CO2 [Moles/Vol] 19.1 mmol/L Low 21.0-32.0 [facility] Carbon dioxide, total [Moles/volume] in Central venous blood 19.1 mmol/L Low 21.0-32.0 [facility] Chloride assayOrdered By: Felix Castorena on 07-11-2024 Chloride [Moles/Vol] 112 mmol/L High 98-108 [facility] Chloride assay 112 mmol/L High 98-108 [facility] Creatinine [Mass/Vol]Ordered By: Gustavo Castorena on 07-11-2024 Serum creatinine measurement (mass/volume) 1.55 mg/dL High 0.70-1.20 [facility] Eosinophil percentageOrdered By: Gustavo Castorena on 07-11-2024 Eosinophils/100 WBC (Bld) 10.0 % High 0-5 [facility] Eosinophil percentage 10.0 % High 0-5 [facility] Erythrocyte distribution wid th (RBC) [Ratio]Ordered By: Gustavo Castorena on 07-11-2024 Erythrocyte distribution width ratio 16.9 % High 11.6-14.6 [facility] Erythrocyte distribution width standard deviation 64.1 fl High 35.1-43.9 [facility] Erythrocyte distribution wid th ratioOrdered By: Gustavo Castorena on 07-11-2024 Erythrocyte distribution width (RBC) [Ratio] 16.9 % High 11.6-14.6 [facility] Erythrocyte distribution wid th standard deviationOrdered By: Gustavo Castorena on 07-11-2024 Erythrocyte distribution width (RBC) [Ratio] 64.1 fl High 35.1-43.9 [facility] GFR/1.73 sq M.predicted kayden g non-blacks MDRD (S/P/Bld) [Vol rate/Area]Ordered By: Gustavo Castorena on 07-11-2024 Glomerular filtration rate (GFR) estimation/1.73 sq m using serum, plasma, or whole b 33 Low >60 [facility] Glomerular filtration rate ( GFR) estimation/1.73 sq m using serum, plasma, or whole bOrdered By: Gustavo Castorena on 07-11-2024 GFR/1.73 sq M.predicted among non-blacks MDRD (S/P/Bld) [Vol rate/Area] 33 mL/min/{1.73_m2} Low >60 [facility] Glucose [Mass/Vol]Ordered By : Gustavo Castorena on 07-11-2024 Serum glucose measurement (mass/volume) 74 mg/dL 70-99 [facility] Hematocrit Auto (Bld) [Volum e fraction]Ordered By: Gustavo Castorena on 07-11-2024 Hematocrit (Bld) [Volume fraction] 30.2 % Low 37-47 [facility] Automated blood hematocrit (percentage) 30.2 % Low 37-47 [facility] Hemoglobin measurementOrdere d By: Gustavo Castorena on 07-11-2024 Hemoglobin (Bld) [Mass/Vol] 9.2 g/dL Low 12.0-15.0 [facility] Hemoglobin measurement 9.2 g/dL Low 12.0-15.0 [facility] Immature granulocytes/100 WB C Auto (Bld)Ordered By: Gustavo Castorena on 07-11-2024 Immature granulocytes/100 WBC (Bld) 0.000 % 0.0-0.9 [facility] Automated immature granulocyte percentage 0.000 % 0.0-0.9 [facility] Lymphocytes Auto (Unsp spec) [#/Vol]Ordered By: Gustavo Castorena on 07-11-2024 Absolute lymphocyte count 1.36 X10^3/uL 0.83-4.51 [facility] Lymphocytes/100 WBC Auto (Un sp spec)Ordered By: Gustavo Castorena on 07-11-2024 Automated lymphocyte count as percentage of total leukocytes 43.9 % High 19-41 [facility] MCV (RBC) [Entitic vol]Order ed By: Gustavo Castorena on 07-11-2024 MCV (mean corpuscular volume) determination 102.4 fL High 81-99 [facility] MCV (mean corpuscular volume ) determinationOrdered By: Gustavo Castorena on 07-11-2024 MCV (RBC) [Entitic vol] 102.4 fL High 81-99 [facility] Mean corpuscular hemoglobin (MCH) determinationOrdered By: Gustavo Castorena on 07-11-2024 MCH (RBC) [Entitic mass] 31.2 pg 27.0-32.0 [facility] Mean corpuscular hemoglobin (MCH) determination 31.2 pg 27.0-32.0 [facility] Mean corpuscular hemoglobin concentration (MCHC) determinationOrdered By: Gustavo Castorena on 07-11-2024 Mean corpuscular hemoglobin concentration (MCHC) determination 30.5 g/dL Low 32-36 [facility] Mean platelet volume determi nationOrdered By: Gustavo Castorena on 07-11-2024 Mean platelet volume determination 12.8 fl High 6.2-12.0 [facility] Monocyte percentageOrdered B y: Gustavo Castorena on 07-11-2024 Monocytes/100 WBC (Bld) 7.4 % 0-10 [facility] Monocyte percentage 7.4 % 0-10 [facility] Neutrophil percentageOrdered By: Gustavo Castorena on 07-11-2024 Neutrophils/100 WBC (Bld) 37.7 % Low 47-70 [facility] Neutrophil percentage 37.7 % Low 47-70 [facility] Nucleated red blood cell per centageOrdered By: Gustavo Castorena on 07-11-2024 Nucleated red blood cell percentage 0 % 0-5 [facility] Platelet countOrdered By: Felix Castorena on 07-11-2024 Platelets (Bld) [#/Vol] 159 10*3/uL 150-450 [facility] Platelet count 159 K/mm3 150-450 [facility] Potassium (Unsp spec) [Mass/ Vol]Ordered By: Gustavo Castorena on 07-11-2024 Potassium measurement (mass/volume) 3.7 mmol/L 3.3-5.1 [facility] Potassium measurement (mass/ volume)Ordered By: Gustavo Castorena on 07-11-2024 Potassium (Unsp spec) [Mass/Vol] 3.7 mmol/L 3.3-5.1 [facility] RBC Auto (Bld) [#/Vol]Ordere d By: Gustavo Castorena on 07-11-2024 RBC (Bld) [#/Vol] 2.95 10*6/uL Low 4.2-5.4 [facility] Automated blood erythrocyte count 2.95 M/mm3 Low 4.2-5.4 [facility] Serum creatinine measurement (mass/volume)Ordered By: Gustavo Castorena on 07-11-2024 Creatinine [Mass/Vol] 1.55 mg/dL High 0.70-1.20 [facility] Serum glucose measurement (m ass/volume)Ordered By: Gustavo Castorena on 07-11-2024 Glucose [Mass/Vol] 74 mg/dL 70-99 [facility] Serum or plasma calcium farheen urement (mass/volume)Ordered By: Gustavo Castorena on 07-11-2024 Calcium [Mass/Vol] 8.0 mg/dL 7.6-11.0 [facility] Serum or plasma urea nitroge n measurement (mass/volume)Ordered By: Gustavo Castorena on 07-11-2024 Urea nitrogen [Mass/Vol] 26 mg/dL High 07-23 [facility] Sodium levelOrdered By: Sharri riosyuridia Kell on 07-11-2024 Sodium [Moles/Vol] 143 mmol/L 133-145 [facility] Sodium level 143 mmol/L 133-145 [facility] Urea nitrogen [Mass/Vol]Orde red By: Gustavo Castorena on 07-11-2024 Serum or plasma urea nitrogen measurement (mass/volume) 26 mg/dL High - [facility] White blood cell (WBC) count Ordered By: Gustavo Castorena on 07-11-2024 WBC (Bld) [#/Vol] 3.1 10*3/uL Low 4.4-11.0 [facility] White blood cell (WBC) count 3.1 K/mm3 Low 4.4-11.0 [facility] Absolute lymphocyte countOrd ered By: Gustavo Castorena on 07-04-2024 Lymphocytes Auto (Unsp spec) [#/Vol] 1.68 10*3/uL 0.83-4.51 [facility] Absolute neutrophil countOrd ered By: Gustavo Castorena on 07-04-2024 Absolute neutrophil count 2.0 X10^3/uL 2.0-7.7 [facility] Anion gap [Moles/Vol]Ordered By: Gustavo Castorena on 07-04-2024 Anion gap in Serum or Plasma 10 5-15 [facility] Anion gap in Serum or Plasma Ordered By: Gustavo Castorena on 07-04-2024 Anion gap [Moles/Vol] 10 mmol/L 5-15 [facility] Automated lymphocyte count a s percentage of total leukocytesOrdered By: Gustavo Castorena on 07-04-2024 Lymphocytes/100 WBC Auto (Unsp spec) 38.1 % [facility] BUN/creatinine ratioOrdered By: Gustavo Castorena on 07-04-2024 Urea nitrogen/Creatinine [Mass ratio] 17.0 mg/mg 10-20 [facility] BUN/creatinine ratio 17.0 RATIO 10-20 [facility] Basophil percentageOrdered B y: Gustavo Castorena on 07-04-2024 Basophils/100 WBC (Bld) 1.4 % High 0-1 [facility] Basophil percentage 1.4 % High 0-1 [facility] Calcium [Mass/Vol]Ordered By : Gustavo Castorena on 07-04-2024 Serum or plasma calcium measurement (mass/volume) 8.2 mg/dL 7.6-11.0 [facility] Carbon dioxide, total [Moles /volume] in Central venous bloodOrdered By: Gustavo Castorena on 07-04-2024 CO2 [Moles/Vol] 18.5 mmol/L Low 21.0-32.0 [facility] Carbon dioxide, total [Moles/volume] in Central venous blood 18.5 mmol/L Low 21.0-32.0 [facility] Chloride assayOrdered By: Felix Castorena on 07-04-2024 Chloride [Moles/Vol] 115 mmol/L High 98-108 [facility] Chloride assay 115 mmol/L High 98-108 [facility] Creatinine [Mass/Vol]Ordered By: Gustavo Castorena on 07-04-2024 Serum creatinine measurement (mass/volume) 1.51 mg/dL High 0.70-1.20 [facility] Eosinophil percentageOrdered By: Gustavo Castorena on 07-04-2024 Eosinophils/100 WBC (Bld) 7.5 % High 0-5 [facility] Eosinophil percentage 7.5 % High 0-5 [facility] Erythrocyte distribution wid th (RBC) [Ratio]Ordered By: Gustavo Castorena on 07-04-2024 Erythrocyte distribution width ratio 17.2 % High 11.6-14.6 [facility] Erythrocyte distribution width standard deviation 64.0 fl High 35.1-43.9 [facility] Erythrocyte distribution wid th ratioOrdered By: Gustavo Castorena on 07-04-2024 Erythrocyte distribution width (RBC) [Ratio] 17.2 % High 11.6-14.6 [facility] Erythrocyte distribution wid th standard deviationOrdered By: Gustavo Castorena on 07-04-2024 Erythrocyte distribution width (RBC) [Ratio] 64.0 fl High 35.1-43.9 [facility] GFR/1.73 sq M.predicted kayden g non-blacks MDRD (S/P/Bld) [Vol rate/Area]Ordered By: Gustavo Castorena on 07-04-2024 Glomerular filtration rate (GFR) estimation/1.73 sq m using serum, plasma, or whole b 34 Low >60 [facility] Glomerular filtration rate ( GFR) estimation/1.73 sq m using serum, plasma, or whole bOrdered By: Gustavo Castorena on 07-04-2024 GFR/1.73 sq M.predicted among non-blacks MDRD (S/P/Bld) [Vol rate/Area] 34 mL/min/{1.73_m2} Low >60 [facility] Glucose [Mass/Vol]Ordered By : Gustavo Castorena on 07-04-2024 Serum glucose measurement (mass/volume) 71 mg/dL 70-99 [facility] Hematocrit Auto (Bld) [Volum e fraction]Ordered By: Gustavo Castorena on 07-04-2024 Hematocrit (Bld) [Volume fraction] 29.0 % Low 37-47 [facility] Automated blood hematocrit (percentage) 29.0 % Low 37-47 [facility] Hemoglobin measurementOrdere d By: Gustavo Castorena on 07-04-2024 Hemoglobin (Bld) [Mass/Vol] 8.9 g/dL Low 12.0-15.0 [facility] Hemoglobin measurement 8.9 g/dL Low 12.0-15.0 [facility] Immature granulocytes/100 WB C Auto (Bld)Ordered By: Gustavo Castorena on 07-04-2024 Immature granulocytes/100 WBC (Bld) 0.200 % 0.0-0.9 [facility] Automated immature granulocyte percentage 0.200 % 0.0-0.9 [facility] Lymphocytes Auto (Unsp spec) [#/Vol]Ordered By: Gustavo Castorena on 07-04-2024 Absolute lymphocyte count 1.68 X10^3/uL 0.83-4.51 [facility] Lymphocytes/100 WBC Auto (Un sp spec)Ordered By: Gustavo Castorena on 07-04-2024 Automated lymphocyte count as percentage of total leukocytes 38.1 % 19-41 [facility] MCV (RBC) [Entitic vol]Order ed By: Gustavo Castorena on 07-04-2024 MCV (mean corpuscular volume) determination 102.1 fL High 81-99 [facility] MCV (mean corpuscular volume ) determinationOrdered By: Gustavo Castorena on 07-04-2024 MCV (RBC) [Entitic vol] 102.1 fL High 81-99 [facility] Mean corpuscular hemoglobin (MCH) determinationOrdered By: Gustavo Castorena on 07-04-2024 MCH (RBC) [Entitic mass] 31.3 pg 27.0-32.0 [facility] Mean corpuscular hemoglobin (MCH) determination 31.3 pg 27.0-32.0 [facility] Mean corpuscular hemoglobin concentration (MCHC) determinationOrdered By: Gustavo Castorena on 07-04-2024 Mean corpuscular hemoglobin concentration (MCHC) determination 30.7 g/dL Low 32-36 [facility] Mean platelet volume determi nationOrdered By: Gustavo Castorena on 07-04-2024 Mean platelet volume determination 12.7 fl High 6.2-12.0 [facility] Monocyte percentageOrdered B y: Gustavo Castorena on 07-04-2024 Monocytes/100 WBC (Bld) 7.9 % 0-10 [facility] Monocyte percentage 7.9 % 0-10 [facility] Neutrophil percentageOrdered By: Gustavo Castorena on 07-04-2024 Neutrophils/100 WBC (Bld) 44.9 % Low 47-70 [facility] Neutrophil percentage 44.9 % Low 47-70 [facility] Nucleated red blood cell per centageOrdered By: Gustavo Castorena on 07-04-2024 Nucleated red blood cell percentage 0 % 0-5 [facility] Platelet countOrdered By: Felix Castorena on 07-04-2024 Platelets (Bld) [#/Vol] 187 10*3/uL 150-450 [facility] Platelet count 187 K/mm3 150-450 [facility] Potassium (Unsp spec) [Mass/ Vol]Ordered By: Gustavo Castorena on 07-04-2024 Potassium measurement (mass/volume) 3.3 mmol/L 3.3-5.1 [facility] Potassium measurement (mass/ volume)Ordered By: Gustavo Castorena on 07-04-2024 Potassium (Unsp spec) [Mass/Vol] 3.3 mmol/L 3.3-5.1 [facility] RBC Auto (Bld) [#/Vol]Ordere d By: Gustavo Castorena on 07-04-2024 RBC (Bld) [#/Vol] 2.84 10*6/uL Low 4.2-5.4 [facility] Automated blood erythrocyte count 2.84 M/mm3 Low 4.2-5.4 [facility] Serum creatinine measurement (mass/volume)Ordered By: Gustavo Castorena on 07-04-2024 Creatinine [Mass/Vol] 1.51 mg/dL High 0.70-1.20 [facility] Serum glucose measurement (m ass/volume)Ordered By: Gustavo Castorena on 07-04-2024 Glucose [Mass/Vol] 71 mg/dL 70-99 [facility] Serum or plasma calcium farheen urement (mass/volume)Ordered By: Gustavo Castorena on 07-04-2024 Calcium [Mass/Vol] 8.2 mg/dL 7.6-11.0 [facility] Serum or plasma urea nitroge n measurement (mass/volume)Ordered By: Gustavo Castorena on 07-04-2024 Urea nitrogen [Mass/Vol] 26 mg/dL High 4-19 [facility] Sodium levelOrdered By: Sharri Castorena on 07-04-2024 Sodium [Moles/Vol] 144 mmol/L 133-145 [facility] Sodium level 144 mmol/L 133-145 [facility] Urea nitrogen [Mass/Vol]Orde red By: Gustavo Castorena on 07-04-2024 Serum or plasma urea nitrogen measurement (mass/volume) 26 mg/dL High 4-19 [facility] White blood cell (WBC) count Ordered By: Gustavo Castorena on 07-04-2024 WBC (Bld) [#/Vol] 4.4 10*3/uL 4.4-11.0 [facility] White blood cell (WBC) count 4.4 K/mm3 4.4-11.0 [facility] Absolute lymphocyte countOrd ered By: Gustavo Castorena on 06-27-2024 Lymphocytes Auto (Unsp spec) [#/Vol] 1.65 10*3/uL 0.83-4.51 [facility] Absolute neutrophil countOrd ered By: Gustavo Castorena on 06-27-2024 Absolute neutrophil count 2.3 X10^3/uL 2.0-7.7 [facility] Anion gap [Moles/Vol]Ordered By: Gustavo Castorena on 06-27-2024 Anion gap in Serum or Plasma 10 5-15 [facility] Anion gap in Serum or Plasma Ordered By: [facility] on 06-27-2024 Anion gap [Moles/Vol] 10 mmol/L 5-15 [facility] Automated lymphocyte count a s percentage of total leukocytesOrdered By: Gustavo Castorena on 06-27-2024 Lymphocytes/100 WBC Auto (Unsp spec) 35.6 % 19-41 [facility] BUN/creatinine ratioOrdered By: Gustavo Castorena on 06-27-2024 Urea nitrogen/Creatinine [Mass ratio] 21.3 mg/mg High 10-20 [facility] BUN/creatinine ratio 21.3 RATIO High 10-20 [facility] Basophil percentageOrdered B y: Gustavo Castorena on 06-27-2024 Basophils/100 WBC (Bld) 0.9 % 0-1 [facility] Basophil percentage 0.9 % 0-1 [facility] Calcium [Mass/Vol]Ordered By : Gustavo Castorena on 06-27-2024 Serum or plasma calcium measurement (mass/volume) 8.2 mg/dL 7.6-11.0 [facility] Carbon dioxide, total [Moles /volume] in Central venous bloodOrdered By: Gustavo Castorena on 06-27-2024 CO2 [Moles/Vol] 19.6 mmol/L Low 21.0-32.0 [facility] Carbon dioxide, total [Moles/volume] in Central venous blood 19.6 mmol/L Low 21.0-32.0 [facility] Chloride assayOrdered By: Felix Castorena on 06-27-2024 Chloride [Moles/Vol] 112 mmol/L High 98-108 [facility] Chloride assay 112 mmol/L High 98-108 [facility] Creatinine [Mass/Vol]Ordered By: Gustavo Castorena on 06-27-2024 Serum creatinine measurement (mass/volume) 1.31 mg/dL High 0.70-1.20 [facility] Eosinophil percentageOrdered By: Gustavo Castorena on 06-27-2024 Eosinophils/100 WBC (Bld) 7.1 % High 0-5 [facility] Erythrocyte distribution wid th (RBC) [Ratio]Ordered By: Gustavo Castorena on 06-27-2024 Erythrocyte distribution width ratio 17.0 % High 11.6-14.6 [facility] Erythrocyte distribution width standard deviation 65.1 fl High 35.1-43.9 [facility] Erythrocyte distribution wid th ratioOrdered By: Gustavo Castorena on 06-27-2024 Erythrocyte distribution width (RBC) [Ratio] 17.0 % High 11.6-14.6 [facility] Erythrocyte distribution wid th standard deviationOrdered By: [facility] Castorena on 06-27-2024 Erythrocyte distribution width (RBC) [Ratio] 65.1 fl High 35.1-43.9 [facility] GFR/1.73 sq M.predicted kayden g non-blacks MDRD (S/P/Bld) [Vol rate/Area]Ordered By: Gustavo Castorena on 06-27-2024 Glomerular filtration rate (GFR) estimation/1.73 sq m using serum, plasma, or whole b 41 Low >60 [facility] Glomerular filtration rate ( GFR) estimation/1.73 sq m using serum, plasma, or whole bOrdered By: Gustavo Castorena on 06-27-2024 GFR/1.73 sq M.predicted among non-blacks MDRD (S/P/Bld) [Vol rate/Area] 41 mL/min/{1.73_m2} Low >60 [facility] Glucose [Mass/Vol]Ordered By : Gustavo Castorena on 06-27-2024 Serum glucose measurement (mass/volume) 76 mg/dL 70-99 [facility] Hematocrit Auto (Bld) [Volum e fraction]Ordered By: Gustavo Casotrena on 06-27-2024 Hematocrit (Bld) [Volume fraction] 28.9 % Low 37-47 [facility] Automated blood hematocrit (percentage) 28.9 % Low 37-47 [facility] Hemoglobin measurementOrdere d By: Gustavo Castorena on 06-27-2024 Hemoglobin (Bld) [Mass/Vol] 8.6 g/dL Low 12.0-15.0 [facility] Hemoglobin measurement 8.6 g/dL Low 12.0-15.0 [facility] Immature granulocytes/100 WB C Auto (Bld)Ordered By: Gustavo Castorena on 06-27-2024 Immature granulocytes/100 WBC (Bld) 0.200 % 0.0-0.9 [facility] Automated immature granulocyte percentage 0.200 % 0.0-0.9 [facility] Lymphocytes Auto (Unsp spec) [#/Vol]Ordered By: Gustavo Castorena on 06-27-2024 Absolute lymphocyte count 1.65 X10^3/uL 0.83-4.51 [facility] Lymphocytes/100 WBC Auto (Un sp spec)Ordered By: Gustavo Castorena on 06-27-2024 Automated lymphocyte count as percentage of total leukocytes 35.6 % 19-41 [facility] MCV (RBC) [Entitic vol]Order ed By: Gustavo Castorena on 06-27-2024 MCV (mean corpuscular volume) determination 102.8 fL High 81-99 [facility] MCV (mean corpuscular volume ) determinationOrdered By: Gustavo Castorena on 06-27-2024 MCV (RBC) [Entitic vol] 102.8 fL High 81-99 [facility] Mean corpuscular hemoglobin (MCH) determinationOrdered By: Gustavo Castorena on 06-27-2024 MCH (RBC) [Entitic mass] 30.6 pg 27.0-32.0 [facility] Mean corpuscular hemoglobin (MCH) determination 30.6 pg 27.0-32.0 [facility] Mean corpuscular hemoglobin concentration (MCHC) determinationOrdered By: Gustavo Castorena on 06-27-2024 Mean corpuscular hemoglobin concentration (MCHC) determination 29.8 g/dL Low 32-36 [facility] Mean platelet volume determi nationOrdered By: Gustavo Castorena on 06-27-2024 Mean platelet volume determination 12.5 fl High 6.2-12.0 [facility] Monocyte percentageOrdered B y: Gustavo Castorena on 06-27-2024 Monocytes/100 WBC (Bld) 7.1 % 0-10 [facility] Monocyte percentage 7.1 % High 0-5 [facility] Neutrophil percentageOrdered By: Gustavo Castorena on 06-27-2024 Neutrophils/100 WBC (Bld) 49.1 % 47-70 [facility] Neutrophil percentage 49.1 % 47-70 [facility] No Panel InformationOrdered By: Gustavo Castorena on 06-27-2024 1+ [facility] Nucleated red blood cell per centageOrdered By: Gustavo Castorena on 06-27-2024 Nucleated red blood cell percentage 0 % 0-5 [facility] Platelet countOrdered By: Felix Castorena on 06-27-2024 Platelets (Bld) [#/Vol] 201 10*3/uL 150-450 [facility] Platelet count 201 K/mm3 150-450 [facility] Potassium (Unsp spec) [Mass/ Vol]Ordered By: Gustavo Castorena on 06-27-2024 Potassium measurement (mass/volume) 3.9 mmol/L 3.3-5.1 [facility] Potassium measurement (mass/ volume)Ordered By: Gustavo Castorena on 06-27-2024 Potassium (Unsp spec) [Mass/Vol] 3.9 mmol/L 3.3-5.1 [facility] RBC Auto (Bld) [#/Vol]Ordere d By: Gustavo Castorena on 06-27-2024 RBC (Bld) [#/Vol] 2.81 10*6/uL Low 4.2-5.4 [facility] Automated blood erythrocyte count 2.81 M/mm3 Low 4.2-5.4 [facility] Serum creatinine measurement (mass/volume)Ordered By: Gustavo Castorena on 06-27-2024 Creatinine [Mass/Vol] 1.31 mg/dL High 0.70-1.20 [facility] Serum glucose measurement (m ass/volume)Ordered By: Gustavo Castorena on 06-27-2024 Glucose [Mass/Vol] 76 mg/dL 70-99 [facility] Serum or plasma calcium farheen urement (mass/volume)Ordered By: Gustavo Castorena on 06-27-2024 Calcium [Mass/Vol] 8.2 mg/dL 7.6-11.0 [facility] Serum or plasma urea nitroge n measurement (mass/volume)Ordered By: Gustavo Castorena on 06-27-2024 Urea nitrogen [Mass/Vol] 28 mg/dL High 07-23 [facility] Sodium levelOrdered By: Sharri Castorena on 06-27-2024 Sodium [Moles/Vol] 141 mmol/L 133-145 [facility] Sodium level 141 mmol/L 133-145 [facility] Urea nitrogen [Mass/Vol]Orde red By: Gustavo Castorena on 06-27-2024 Serum or plasma urea nitrogen measurement (mass/volume) 28 mg/dL High 07-23 [facility] White blood cell (WBC) count Ordered By: Gustavo Castorena on 06-27-2024 WBC (Bld) [#/Vol] 4.6 10*3/uL 4.4-11.0 [facility] White blood cell (WBC) count 4.6 K/mm3 4.4-11.0 [facility] Absolute lymphocyte countOrd ered By: Gustavo Castorena on 06-20-2024 Lymphocytes Auto (Unsp spec) [#/Vol] 1.65 10*3/uL 0.83-4.51 [facility] Absolute neutrophil countOrd ered By: Gustavo Castorena on 06-20-2024 Absolute neutrophil count 2.5 X10^3/uL 2.0-7.7 [facility] Anion gap [Moles/Vol]Ordered By: Gustavo Castorena on 06-20-2024 Anion gap in Serum or Plasma 9 - [facility] Anion gap in Serum or Plasma Ordered By: Gustavo Castorena on 06-20-2024 Anion gap [Moles/Vol] 9 mmol/L 08-18 [facility] Automated lymphocyte count a s percentage of total leukocytesOrdered By: Gustavo Castorena on 06-20-2024 Lymphocytes/100 WBC Auto (Unsp spec) 34.5 % 19-41 [facility] BUN/creatinine ratioOrdered By: Gustavo Castorena on 06-20-2024 Urea nitrogen/Creatinine [Mass ratio] 22.3 mg/mg High 10-20 [facility] BUN/creatinine ratio 22.3 RATIO High 10-20 [facility] Basophil percentageOrdered B y: Gustavo Castorena on 06-20-2024 Basophils/100 WBC (Bld) 1.3 % High 0-1 [facility] Basophil percentage 1.3 % High 0-1 [facility] Calcium [Mass/Vol]Ordered By : Gustavo Castorena on 06-20-2024 Serum or plasma calcium measurement (mass/volume) 8.5 mg/dL 7.6-11.0 [facility] Carbon dioxide, total [Moles /volume] in Central venous bloodOrdered By: Gustavo Castorena on 06-20-2024 CO2 [Moles/Vol] 20.3 mmol/L Low 21.0-32.0 [facility] Carbon dioxide, total [Moles/volume] in Central venous blood 20.3 mmol/L Low 21.0-32.0 [facility] Chloride assayOrdered By: Felix Castorena on 06-20-2024 Chloride [Moles/Vol] 113 mmol/L High 98-108 [facility] Chloride assay 113 mmol/L High 98-108 [facility] Creatinine [Mass/Vol]Ordered By: Gustavo Castorena on 06-20-2024 Serum creatinine measurement (mass/volume) 1.75 mg/dL High 0.70-1.20 [facility] Eosinophil percentageOrdered By: Gustavo Castorena on 06-20-2024 Eosinophils/100 WBC (Bld) 5.6 % High 0-5 [facility] Eosinophil percentage 5.6 % High 0-5 [facility] Erythrocyte distribution wid th (RBC) [Ratio]Ordered By: Gustavo Castorena on 06-20-2024 Erythrocyte distribution width ratio 16.8 % High 11.6-14.6 [facility] Erythrocyte distribution width standard deviation 63.8 fl High 35.1-43.9 [facility] Erythrocyte distribution wid th ratioOrdered By: Gustavo Castorena on 06-20-2024 Erythrocyte distribution width (RBC) [Ratio] 16.8 % High 11.6-14.6 [facility] Erythrocyte distribution wid th standard deviationOrdered By: Gustavo Castorena on 06-20-2024 Erythrocyte distribution width (RBC) [Ratio] 63.8 fl High 35.1-43.9 [facility] GFR/1.73 sq M.predicted kayden g non-blacks MDRD (S/P/Bld) [Vol rate/Area]Ordered By: Gustavo Castorena on 06-20-2024 Glomerular filtration rate (GFR) estimation/1.73 sq m using serum, plasma, or whole b 29 Low >60 [facility] Glomerular filtration rate ( GFR) estimation/1.73 sq m using serum, plasma, or whole bOrdered By: Gustavo Castorena on 06-20-2024 GFR/1.73 sq M.predicted among non-blacks MDRD (S/P/Bld) [Vol rate/Area] 29 mL/min/{1.73_m2} Low >60 [facility] Glucose [Mass/Vol]Ordered By : Gustavo Castorena on 06-20-2024 Serum glucose measurement (mass/volume) 76 mg/dL 70-99 [facility] Hematocrit Auto (Bld) [Volum e fraction]Ordered By: Gustavo Castorena on 06-20-2024 Hematocrit (Bld) [Volume fraction] 29.1 % Low 37-47 [facility] Automated blood hematocrit (percentage) 29.1 % Low 37-47 [facility] Hemoglobin measurementOrdere d By: Gustavo Castorena on 06-20-2024 Hemoglobin (Bld) [Mass/Vol] 8.6 g/dL Low 12.0-15.0 [facility] Hemoglobin measurement 8.6 g/dL Low 12.0-15.0 [facility] Immature granulocytes/100 WB C Auto (Bld)Ordered By: Gustavo Castorena on 06-20-2024 Immature granulocytes/100 WBC (Bld) 0.200 % 0.0-0.9 [facility] Automated immature granulocyte percentage 0.200 % 0.0-0.9 [facility] Lymphocytes Auto (Unsp spec) [#/Vol]Ordered By: Gustavo Castorena on 06-20-2024 Absolute lymphocyte count 1.65 X10^3/uL 0.83-4.51 [facility] Lymphocytes/100 WBC Auto (Un sp spec)Ordered By: Gustavo Castorena on 06-20-2024 Automated lymphocyte count as percentage of total leukocytes 34.5 % 19-41 [facility] MCV (RBC) [Entitic vol]Order ed By: Gustavo Castorena on 06-20-2024 MCV (mean corpuscular volume) determination 104.3 fL [facility] 81-99 [facility] MCV (mean corpuscular volume ) determinationOrdered By: Gustavo Castorena on 06-20-2024 MCV (RBC) [Entitic vol] 104.3 fL High 81-99 [facility] Mean corpuscular hemoglobin (MCH) determinationOrdered By: Gustavo Castorena on 06-20-2024 MCH (RBC) [Entitic mass] 30.8 pg 27.0-32.0 [facility] Mean corpuscular hemoglobin (MCH) determination 30.8 pg 27.0-32.0 [facility] Mean corpuscular hemoglobin concentration (MCHC) determinationOrdered By: Gustavo Castorena on 06-20-2024 Mean corpuscular hemoglobin concentration (MCHC) determination 29.6 g/dL Low 32-36 [facility] Mean platelet volume determi nationOrdered By: Gustavo Castorena on 06-20-2024 Mean platelet volume determination 12.5 fl High 6.2-12.0 [facility] Monocyte percentageOrdered B y: Gustavo Catsorena on 06-20-2024 Monocytes/100 WBC (Bld) 5.9 % 0-10 [facility] Monocyte percentage 5.9 % 0-10 [facility] Neutrophil percentageOrdered By: Gustavo Castorena on 06-20-2024 Neutrophils/100 WBC (Bld) 52.5 % 47-70 [facility] Neutrophil percentage 52.5 % 47-70 [facility] Nucleated red blood cell per centageOrdered By: Gustavo Castorena on 06-20-2024 Nucleated red blood cell percentage 0 % 0-5 [facility] Platelet countOrdered By: Felix Castorena on 06-20-2024 Platelets (Bld) [#/Vol] 258 10*3/uL 150-450 [facility] Platelet count 258 K/mm3 150-450 [facility] Potassium (Unsp spec) [Mass/ Vol]Ordered By: Gustavo Castorena on 06-20-2024 Potassium measurement (mass/volume) 4.4 mmol/L 3.3-5.1 [facility] Potassium measurement (mass/ volume)Ordered By: Gustavo Castorena on 06-20-2024 Potassium (Unsp spec) [Mass/Vol] 4.4 mmol/L 3.3-5.1 [facility] RBC Auto (Bld) [#/Vol]Ordere d By: Gustavo Castorena on 06-20-2024 RBC (Bld) [#/Vol] 2.79 10*6/uL Low 4.2-5.4 [facility] Automated blood erythrocyte count 2.79 M/mm3 Low 4.2-5.4 [facility] Serum creatinine measurement (mass/volume)Ordered By: Gustavo Castorena on 06-20-2024 Creatinine [Mass/Vol] 1.75 mg/dL High 0.70-1.20 [facility] Serum glucose measurement (m ass/volume)Ordered By: Gustavo Castorena on 06-20-2024 Glucose [Mass/Vol] 76 mg/dL 70-99 [facility] Serum or plasma calcium farheen urement (mass/volume)Ordered By: Gustavo Castorena on 06-20-2024 Calcium [Mass/Vol] 8.5 mg/dL 7.6-11.0 [facility] Serum or plasma urea nitroge n measurement (mass/volume)Ordered By: Gustavo Castorena on 06-20-2024 Urea nitrogen [Mass/Vol] 39 mg/dL High 4-19 [facility] Sodium levelOrdered By: Sharri Castorena on 06-20-2024 Sodium [Moles/Vol] 142 mmol/L 133-145 [facility] Sodium level 142 mmol/L 133-145 [facility] Urea nitrogen [Mass/Vol]Orde red By: Gustavo Castorena on 06-20-2024 Serum or plasma urea nitrogen measurement (mass/volume) 39 mg/dL High 4-19 [facility] White blood cell (WBC) count Ordered By: Gustavo Castorena on 06-20-2024 WBC (Bld) [#/Vol] 4.8 10*3/uL 4.4-11.0 [facility] White blood cell (WBC) count 4.8 K/mm3 4.4-11.0 [facility] ALP [Catalytic activity/Vol] Ordered By: Gustavo Castorena on 06-13-2024 Serum or plasma alkaline phosphatase measurement 86 U/L 35-104 [facility] ALT [Catalytic activity/Vol] Ordered By: Gustavo Castorena on 06-13-2024 Serum or plasma alanine aminotransferase (ALT) measurement 11 U/L <35 [facility] Absolute lymphocyte countOrd ered By: Gustavo Castorena on 06-13-2024 Lymphocytes Auto (Unsp spec) [#/Vol] 1.75 10*3/uL 0.83-4.51 [facility] Absolute neutrophil countOrd ered By: Gustavo Castorena on 06-13-2024 Absolute neutrophil count 2.3 X10^3/uL 2.0-7.7 [facility] Albumin [Mass/Vol]Ordered By : Gustavo Castorena on 06-13-2024 Serum or plasma albumin measurement (mass/volume) 2.5 g/dL Low 3.4-4.8 [facility] Albumin/Globulin [Mass ratio ]Ordered By: Gustavo Castorena on 06-13-2024 Serum or plasma albumin/globulin mass ratio 0.9 RATIO 0.9-2.4 [facility] Anion gap [Moles/Vol]Ordered By: Gustavo Castorena on 06-13-2024 Anion gap in Serum or Plasma 13 - [facility] Anion gap in Serum or Plasma Ordered By: Gustavo Castorena on 06-13-2024 Anion gap [Moles/Vol] 13 mmol/L - [facility] Automated lymphocyte count a s percentage of total leukocytesOrdered By: Gustavo Castorena on 06-13-2024 Lymphocytes/100 WBC Auto (Unsp spec) 36.6 % 19-41 [facility] BUN/creatinine ratioOrdered By: Gustavo Castorena on 06-13-2024 Urea nitrogen/Creatinine [Mass ratio] 26.0 mg/mg High 10-20 [facility] BUN/creatinine ratio 26.0 RATIO High 10-20 [facility] Basophil percentageOrdered B y: Gustavo Castorena on 06-13-2024 Basophils/100 WBC (Bld) 1.0 % 0-1 [facility] Basophil percentage 1.0 % 0-1 [facility] Bilirubin, totalOrdered By: Gustavo Castorena on 06-13-2024 Bilirubin [Mass/Vol] 0.17 mg/dL 0.00-1.30 [facility] Bilirubin, total 0.17 mg/dL 0.00-1.30 [facility] Calcium [Mass/Vol]Ordered By : Gustavo Castorena on 06-13-2024 Serum or plasma calcium measurement (mass/volume) 8.6 mg/dL 7.6-11.0 [facility] Calculated very low density lipoprotein (VLDL) cholesterol measurementOrdered By: Gustavo Castorena on 06-13-2024 Calculated very low density lipoprotein (VLDL) cholesterol measurement 21 mg/dL 5-40 [facility] Calculated very low density lipoprotein (VLDL) cholesterol measurement 21 mg/dL 5-40 [facility] Carbon dioxide, total [Moles /volume] in Central venous bloodOrdered By: Gustavo Castorena on 06-13-2024 CO2 [Moles/Vol] 18.2 mmol/L Low 21.0-32.0 [facility] Carbon dioxide, total [Moles/volume] in Central venous blood 18.2 mmol/L Low 21.0-32.0 [facility] Chloride assayOrdered By: Felix Castorena on 06-13-2024 Chloride [Moles/Vol] 113 mmol/L High 98-108 [facility] Chloride assay 113 mmol/L High 98-108 [facility] Cholesterol in HDL [Mass/Vol ]Ordered By: Gustavo Castorena on 06-13-2024 Serum or plasma cholesterol in HDL measurement (mass/volume) 27 mg/dL Low >40 [facility] Creatinine [Mass/Vol]Ordered By: Gustavo Castorena on 06-13-2024 Serum creatinine measurement (mass/volume) 1.60 mg/dL High 0.70-1.20 [facility] Eosinophil percentageOrdered By: Gustavo Castorena on 06-13-2024 Eosinophils/100 WBC (Bld) 7.5 % High 0-5 [facility] Eosinophil percentage 7.5 % High 0-5 [facility] Erythrocyte distribution wid th (RBC) [Ratio]Ordered By: Gustavo Castorena on 06-13-2024 Erythrocyte distribution width ratio 16.5 % High 11.6-14.6 [facility] Erythrocyte distribution width standard deviation 61.5 fl High 35.1-43.9 [facility] Erythrocyte distribution wid th ratioOrdered By: Gustavo Castorena on 06-13-2024 Erythrocyte distribution width (RBC) [Ratio] 16.5 % High 11.6-14.6 [facility] Erythrocyte distribution wid th standard deviationOrdered By: Gustavo Castorena on 06-13-2024 Erythrocyte distribution width (RBC) [Ratio] 61.5 fl High 35.1-43.9 [facility] GFR/1.73 sq M.predicted kayden g non-blacks MDRD (S/P/Bld) [Vol rate/Area]Ordered By: Gustavo Castorena on 06-13-2024 Glomerular filtration rate (GFR) estimation/1.73 sq m using serum, plasma, or whole b 32 Low >60 [facility] Glomerular filtration rate ( GFR) estimation/1.73 sq m using serum, plasma, or whole bOrdered By: Gustavo Castorena on 06-13-2024 GFR/1.73 sq M.predicted among non-blacks MDRD (S/P/Bld) [Vol rate/Area] 32 mL/min/{1.73_m2} Low >60 [facility] Glucose [Mass/Vol]Ordered By : Gustavo Castorena on 06-13-2024 Serum glucose measurement (mass/volume) 83 mg/dL 70-99 [facility] Hematocrit Auto (Bld) [Volum e fraction]Ordered By: Gustavo Castorena on 06-13-2024 Hematocrit (Bld) [Volume fraction] 29.2 % Low 37-47 [facility] Automated blood hematocrit (percentage) 29.2 % Low 37-47 [facility] Hemoglobin measurementOrdere d By: Gustavo Castorena on 06-13-2024 Hemoglobin (Bld) [Mass/Vol] 8.7 g/dL Low 12.0-15.0 [facility] Hemoglobin measurement 8.7 g/dL Low 12.0-15.0 [facility] Immature granulocytes/100 WB C Auto (Bld)Ordered By: Gustavo Castorena on 06-13-2024 Immature granulocytes/100 WBC (Bld) 0.200 % 0.0-0.9 [facility] Automated immature granulocyte percentage 0.200 % 0.0-0.9 [facility] LDL calc ser/plasOrdered By: Gustavo Castorena on 06-13-2024 Cholesterol in LDL [Mass/Vol] 56 mg/dL [facility] LDL calc ser/plas 56 mg/dL [facility] Lymphocytes Auto (Unsp spec) [#/Vol]Ordered By: Gustavo Castorena on 06-13-2024 Absolute lymphocyte count 1.75 X10^3/uL 0.83-4.51 [facility] Lymphocytes/100 WBC Auto (Un sp spec)Ordered By: Gustavo Castorena on 06-13-2024 Automated lymphocyte count as percentage of total leukocytes 36.6 % 19-41 [facility] MCV (RBC) [Entitic vol]Order ed By: Gustavo Castorena on 06-13-2024 MCV (mean corpuscular volume) determination 101.4 fL High 81-99 [facility] MCV (mean corpuscular volume ) determinationOrdered By: Gustavo Castorena on 06-13-2024 MCV (RBC) [Entitic vol] 101.4 fL High 81-99 [facility] Magnesium (Unsp spec) [Mass/ Vol]Ordered By: Gustavo Castorena on 06-13-2024 Magnesium measurement (mass/volume) 2.0 mg/dL 1.5-2.2 [facility] Magnesium measurement (mass/ volume)Ordered By: Gustavo Castorena on 06-13-2024 Magnesium (Unsp spec) [Mass/Vol] 2.0 mg/dL 1.5-2.2 [facility] Mean corpuscular hemoglobin (MCH) determinationOrdered By: Gustavo Castorena on 06-13-2024 MCH (RBC) [Entitic mass] 30.2 pg 27.0-32.0 [facility] Mean corpuscular hemoglobin (MCH) determination 30.2 pg 27.0-32.0 [facility] Mean corpuscular hemoglobin concentration (MCHC) determinationOrdered By: Gustavo Castorena on 06-13-2024 Mean corpuscular hemoglobin concentration (MCHC) determination 29.8 g/dL Low 32-36 [facility] Mean platelet volume determi nationOrdered By: Gustavo Castorena on 06-13-2024 Mean platelet volume determination 12.1 fl High 6.2-12.0 [facility] Monocyte percentageOrdered B y: Gustavo Castorena on 06-13-2024 Monocytes/100 WBC (Bld) 7.3 % 0-10 [facility] Monocyte percentage 7.3 % 0-10 [facility] Neutrophil percentageOrdered By: Gustavo Castorena on 06-13-2024 Neutrophils/100 WBC (Bld) 47.4 % 47-70 [facility] Neutrophil percentage 47.4 % 47-70 [facility] No Panel InformationOrdered By: Gustavo Castorena on 06-13-2024 20 U/L <32 [facility] Nucleated red blood cell per centageOrdered By: Gustavo Castorena on 06-13-2024 Nucleated red blood cell percentage 0 % 0-5 [facility] Platelet countOrdered By: Felix Castorena on 06-13-2024 Platelets (Bld) [#/Vol] 267 10*3/uL 150-450 [facility] Platelet count 267 K/mm3 150-450 [facility] Potassium (Unsp spec) [Mass/ Vol]Ordered By: Gustavo Castorena on 06-13-2024 Potassium measurement (mass/volume) 4.2 mmol/L 3.3-5.1 [facility] Potassium measurement (mass/ volume)Ordered By: Gustavo Castorena on 06-13-2024 Potassium (Unsp spec) [Mass/Vol] 4.2 mmol/L 3.3-5.1 [facility] RBC Auto (Bld) [#/Vol]Ordere d By: Gustavo Castorena on 06-13-2024 RBC (Bld) [#/Vol] 2.88 10*6/uL Low 4.2-5.4 [facility] Automated blood erythrocyte count 2.88 M/mm3 Low 4.2-5.4 [facility] Screening total cholesterol/ high density lipoprotein (HDL) cholesterol ratioOrdered By: Gustavo Castorena on 06-13-2024 Screening total cholesterol/high density lipoprotein (HDL) cholesterol ratio 3.85 [facility] Serum creatinine measurement (mass/volume)Ordered By: Gustavo Castorena on 06-13-2024 Creatinine [Mass/Vol] 1.60 mg/dL High 0.70-1.20 [facility] Serum globulin measurementOr dered By: Gustavo Castorena on 06-13-2024 Globulin (S) [Mass/Vol] 2.7 g/dL 2.2-4.2 [facility] Serum globulin measurement 2.7 g/dL 2.2-4.2 [facility] Serum glucose measurement (m ass/volume)Ordered By: Gustavo Castorena on 06-13-2024 Glucose [Mass/Vol] 83 mg/dL 70-99 [facility] Serum or plasma alanine huertas otransferase (ALT) measurementOrdered By: Gustavo Castorena on 06-13-2024 ALT [Catalytic activity/Vol] 11 U/L <35 [facility] Serum or plasma albumin farheen urement (mass/volume)Ordered By: Gustavo Castorena on 06-13-2024 Albumin [Mass/Vol] 2.5 g/dL Low 3.4-4.8 [facility] Serum or plasma albumin/glob ulin mass ratioOrdered By: Gustavo Castorena 06-13-2024 Albumin/Globulin [Mass ratio] 0.9 {ratio} 0.9-2.4 [facility] Serum or plasma alkaline mariya sphatase measurementOrdered By: Gustavo Castorena 06-13-2024 ALP [Catalytic activity/Vol] 86 U/L 35-104 [facility] Serum or plasma calcium farheen urement (mass/volume)Ordered By: Gustavo Castorena 06-13-2024 Calcium [Mass/Vol] 8.6 mg/dL 7.6-11.0 [facility] Serum or plasma cholesterol in HDL measurement (mass/volume)Ordered By: Gustavo Castorena on 06-13-2024 Cholesterol in HDL [Mass/Vol] 27 mg/dL Low >40 [facility] Serum or plasma cholesterol measurement (mass/volume)Ordered By: Gustavo Castorena on 06-13-2024 Cholesterol [Mass/Vol] 104 mg/dL <201 [facility] Serum or plasma cholesterol measurement (mass/volume) 104 mg/dL <199 [facility] Serum or plasma urea nitroge n measurement (mass/volume)Ordered By: Gustavo Castorena on 06-13-2024 Urea nitrogen [Mass/Vol] 42 mg/dL High 4-19 [facility] Serum phosphorus measurement Ordered By: Gustavo Castorena on 06-13-2024 Serum phosphorus measurement 4.1 mg/dL 2.7-4.5 [facility] Sodium levelOrdered By: Sharri anamaria Kell on 06-13-2024 Sodium [Moles/Vol] 144 mmol/L 133-145 [facility] Sodium level 144 mmol/L 133-145 [facility] TSH DL <= 0.005 mIU/L QnOrde red By: Sharrirubiamaryann Castorena on 06-13-2024 TSH Qn 3.000 uIU/mL 0.300-4.20 0 [facility] Serum or plasma thyroid stimulating hormone (TSH) measurement by high sensitivity met 3.000 uIU/mL 0.300-4.20 0 [facility] Total proteinOrdered By: Rolochela martinezmaryann Castorena on 06-13-2024 Protein [Mass/Vol] 5.2 g/dL Low 5.9-8.4 [facility] Total protein 5.2 g/dL Low 5.9-8.4 [facility] Urea nitrogen [Mass/Vol]Orde red By: Felixosbaldo Castorena on 06-13-2024 Serum or plasma urea nitrogen measurement (mass/volume) 42 mg/dL High - [facility] Vitamin D, 25-hydroxyOrdered By: Gustavo Castorena on 06-13-2024 Vitamin D, 25-hydroxy 20.2 ng/mL Low 30-100 [facility] White blood cell (WBC) count Ordered By: Gustavo Castorena on 06-13-2024 WBC (Bld) [#/Vol] 4.8 10*3/uL 4.4-11.0 [facility] White blood cell (WBC) count 4.8 K/mm3 4.4-11.0 [facility] Albumin [Mass/Vol]Ordered By : Mari Mehta on 06-10-2024 Serum or plasma albumin measurement (mass/volume) 2.7 g/dL Low 3.4-4.8 [facility] Anion gap [Moles/Vol]Ordered By: Mari Mehta on 06-10-2024 Anion gap in Serum or Plasma 14 5-15 [facility] Anion gap in Serum or Plasma Ordered By: Mari Mehta on 06-10-2024 Anion gap [Moles/Vol] 14 mmol/L 5-15 [facility] BUN/creatinine ratioOrdered By: Mari Mehta on 06-10-2024 Urea nitrogen/Creatinine [Mass ratio] 26.1 mg/mg High 10-20 [facility] BUN/creatinine ratio 26.1 RATIO High 10-20 [facility] Calcium [Mass/Vol]Ordered By : Mari Mehta on 06-10-2024 Serum or plasma calcium measurement (mass/volume) 8.3 mg/dL 7.6-11.0 [facility] Carbon dioxide, total [Moles /volume] in Central venous bloodOrdered By: Mari Mehta on 06-10-2024 CO2 [Moles/Vol] 20.9 mmol/L Low 21.0-32.0 [facility] Carbon dioxide, total [Moles/volume] in Central venous blood 20.9 mmol/L Low 21.0-32.0 [facility] Chloride assayOrdered By: Manjeet Mehta on 06-10-2024 Chloride [Moles/Vol] 107 mmol/L 98-108 [facility] Chloride assay 107 mmol/L 98-108 [facility] Creatinine [Mass/Vol]Ordered By: Mari Mehta on 06-10-2024 Serum creatinine measurement (mass/volume) 2.03 mg/dL High 0.70-1.20 [facility] Estimation of creatinine jackie aranceOrdered By: Mari Mehta on 06-10-2024 Estimation of creatinine clearance 23.01 ml/min Low 50-250 [facility] GFR/1.73 sq M.predicted kayden g non-blacks MDRD (S/P/Bld) [Vol rate/Area]Ordered By: Mari Mehta on 06-10-2024 Glomerular filtration rate (GFR) estimation/1.73 sq m using serum, plasma, or whole b 24 Low >60 [facility] Glomerular filtration rate ( GFR) estimation/1.73 sq m using serum, plasma, or whole bOrdered By: Mari Mehta on 06-10-2024 GFR/1.73 sq M.predicted among non-blacks MDRD (S/P/Bld) [Vol rate/Area] 24 mL/min/{1.73_m2} Low >60 [facility] Glucose [Mass/Vol]Ordered By : Mari Landeroskunal on 06-10-2024 Serum glucose measurement (mass/volume) 88 mg/dL 70-99 [facility] Potassium (Unsp spec) [Mass/ Vol]Ordered By: Mari Janine on 06-10-2024 Potassium measurement (mass/volume) 4.2 mmol/L 3.3-5.1 [facility] Potassium measurement (mass/ volume)Ordered By: Mari Janine on 06-10-2024 Potassium (Unsp spec) [Mass/Vol] 4.2 mmol/L 3.3-5.1 [facility] Renal Profileon 06-10-2024 Albumin [Mass/Vol] 2.7 g/dL Low 3.4-4.8 [facility] Comment on above: Performed By: #### L 500.3600 ####[facility] [address] [place], [address] BUN/CRE 26.1 RATIO High 10-20 [facility] Comment on above: Performed By: #### L 500.3600 ####[facility] [address] [place], [address] Calcium [Mass/Vol] 8.3 mg/dL Normal 7.6-11.0 [facility] Comment on above: Performed By: #### L 500.3600 ####[facility] [address] [place], [address] Chloride [Moles/Vol] 107 mmol/L Normal 98-108 [facility] Comment on above: Performed By: #### L 500.3600 ####[facility] [address] [place], [address] CO2 [Moles/Vol] 20.9 mmol/L Low 21.0-32.0 [facility] Comment on above: Performed By: #### L 500.3600 ####[facility] [address] [place], [address] Creatinine [Mass/Vol] 2.03 mg/dL High 0.70-1.20 [facility] Comment on above: Performed By: #### L 500.3600 ####[facility] [address] [place], [address] ECRCL 23.01 ml/min Low 50-250 [facility] Comment on above: Performed By: #### L 500.3600 ####[facility] [address] [place], [address] GAP 14 Normal 5-15 [facility] Comment on above: Performed By: #### L 500.3600 ####[facility] [address] [place], [address] GFR/1.73 sq M.predicted among non-blacks MDRD (S/P/Bld) [Vol rate/Area] 24 mL/min/{1.73_m2} Low >60 [facility] Comment on above: Result Comment: mL/m in/1.73m2 CKD-EPI Creatinine Equation (2020) Performed By: #### L 500.3600 ####[facility] [address] [place], [address] Glucose [Mass/Vol] 88 mg/dL Normal 70-99 [facility] Comment on above: Performed By: #### L 500.3600 ####[facility] [address] [place], [address] Phosphate [Mass/Vol] 5.2 mg/dL High 2.7-4.5 [facility] Comment on above: Performed By: #### L 500.3600 ####[facility] [address] [place], [address] Potassium [Moles/Vol] 4.2 mmol/L Normal 3.3-5.1 [facility] Comment on above: Performed By: #### L 500.3600 ####[facility] [address] [place], [address] Sodium [Moles/Vol] 142 mmol/L Normal 133-145 [facility] Comment on above: Performed By: #### L 500.3600 ####[facility] [address] [place], [address] Urea nitrogen [Mass/Vol] 53 mg/dL High 4-19 [facility] Comment on above: Performed By: #### L 500.3600 ####[facility] [address] [place], [place], [address] Serum creatinine measurement (mass/volume)Ordered By: Mari Mehta on 06-10-2024 Creatinine [Mass/Vol] 2.03 mg/dL High 0.70-1.20 [facility] Serum glucose measurement (m ass/volume)Ordered By: Mari Mehta on 06-10-2024 Glucose [Mass/Vol] 88 mg/dL 70-99 [facility] Serum or plasma albumin farheen urement (mass/volume)Ordered By: Mari Mehta on 06-10-2024 Albumin [Mass/Vol] 2.7 g/dL Low 3.4-4.8 [facility] Serum or plasma calcium farheen urement (mass/volume)Ordered By: Mari Mehta on 06-10-2024 Calcium [Mass/Vol] 8.3 mg/dL 7.6-11.0 [facility] Serum or plasma urea nitroge n measurement (mass/volume)Ordered By: Mari Mehta on 06-10-2024 Urea nitrogen [Mass/Vol] 53 mg/dL High 4-19 [facility] Serum phosphorus measurement Ordered By: Mari Mehta on 06-10-2024 Serum phosphorus measurement 5.2 mg/dL High 2.7-4.5 [facility] Sodium levelOrdered By: Mari Mehta on 06-10-2024 Sodium [Moles/Vol] 142 mmol/L 133-145 [facility] Sodium level 142 mmol/L 133-145 [facility] Urea nitrogen [Mass/Vol]Orde red By: Mari Mehta on 06-10-2024 Serum or plasma urea nitrogen measurement (mass/volume) 53 mg/dL High 4-19 [facility] Renal Profileon 06-09-2024 Albumin [Mass/Vol] 2.7 g/dL Low 3.4-4.8 [facility] Comment on above: Performed By: #### L 500.3600 ####[facility] [address] [place], [address] BUN/CRE 25.7 RATIO High 10-20 [facility] Comment on above: Performed By: #### L 500.3600 ####[facility] [address] [place], [address] Calcium [Mass/Vol] 8.4 mg/dL Normal 7.6-11.0 [facility] Comment on above: Performed By: #### L 500.3600 ####[facility] [address] [place], [address] Chloride [Moles/Vol] 103 mmol/L Normal 98-108 [facility] Comment on above: Performed By: #### L 500.3600 ####[facility] [address] [place], [address] CO2 [Moles/Vol] 21.7 mmol/L Normal 21.0-32.0 [facility] Comment on above: Performed By: #### L 500.3600 ####[facility] [address] [place], [address] Creatinine [Mass/Vol] 2.14 mg/dL High 0.70-1.20 [facility] Comment on above: Performed By: #### L 500.3600 ####[facility] [address] [place], [address] ECRCL 21.83 ml/min Low 50-250 [facility] Comment on above: Performed By: #### L 500.3600 ####[facility] [address] [place], [address] GAP 16 High 5-15 [facility] Comment on above: Performed By: #### L 500.3600 ####[facility] [address] [place], [address] GFR/1.73 sq M.predicted among non-blacks MDRD (S/P/Bld) [Vol rate/Area] 23 mL/min/{1.73_m2} Low >60 [facility] Comment on above: Result Comment: mL/m in/1.73m2 CKD-EPI Creatinine Equation (2020) Performed By: #### L 500.3600 ####[facility] [address] [place], [address] Glucose [Mass/Vol] 86 mg/dL Normal 70-99 [facility] Comment on above: Performed By: #### L 500.3600 ####[facility] [address] [place], [address] Potassium [Moles/Vol] 4.1 mmol/L Normal 3.3-5.1 [facility] Comment on above: Performed By: #### L 500.3600 ####[facility] [address] [place], [address] Sodium [Moles/Vol] 140 mmol/L Normal 133-145 [facility] Comment on above: Performed By: #### L 500.3600 ####[facility] [address] [place], [address] Urea nitrogen [Mass/Vol] 55 mg/dL High 4-19 [facility] Comment on above: Performed By: #### L 500.3600 ####[facility] [address] [place], [address] CBC-Complete Blood Cnt No Di ffon 06-07-2024 Erythrocyte distribution width (RBC) [Ratio] 16.4 % High 11.6-14.6 [facility] Comment on above: Performed By: #### L 500.3600, L100.0500 ####[facility] [address] [place], [address] Hematocrit (Bld) [Volume fraction] 30.1 % Low 37-47 [facility] Comment on above: Performed By: #### L 500.3600, L100.0500 ####[facility] [address] [place], [address] Hemoglobin (Bld) [Mass/Vol] 9.3 g/dL Low 12.0-15.0 [facility] Comment on above: Performed By: #### L 500.3600, L100.0500 ####[facility] [address] [place], [address] MCH (RBC) [Entitic mass] 30.7 pg Normal 27.0-32.0 [facility] Comment on above: Performed By: #### L 500.3600, L100.0500 ####[facility] [address] [place], [address] MCHC (RBC) [Mass/Vol] 30.9 g/dL Low 32-36 [facility] Comment on above: Performed By: #### L 500.3600, L100.0500 ####[facility] [address] [place], [address] MCV (RBC) [Entitic vol] 99.3 fL High 81-99 [facility] Comment on above: Performed By: #### L 500.3600, L100.0500 ####[facility] [address] [place], [address] Platelet mean volume (Bld) [Entitic vol] 12.4 fL High 6.2-12.0 [facility] Comment on above: Performed By: #### L 500.3600, L100.0500 ####[facility] [address] [place], [address] Platelets (Bld) [#/Vol] 241 10*3/uL Normal 150-450 [facility] Comment on above: Performed By: #### L 500.3600, L100.0500 ####[facility] [address] [place], [address] RBC (Bld) [#/Vol] 3.03 10*6/uL Low 4.2-5.4 [facility] Comment on above: Performed By: #### L 500.3600, L100.0500 ####[facility] [address] [place], [address] RDW SD 59.5 fl High 35.1-43.9 [facility] Comment on above: Performed By: #### L 500.3600, L100.0500 ####[facility] [address] [place], [address] WBC (Bld) [#/Vol] 7.8 10*3/uL Normal 4.4-11.0 [facility] Comment on above: Performed By: #### L 500.3600, L100.0500 ####[facility] [address] [place], [address] Chloride measurementOrdered By: Mari Mehta on 06-07-2024 Chloride [Moles/Vol] 103 mmol/L 96-108 [facility] Chloride measurement 103 mmol/L 96-108 [facility] Erythrocyte distribution wid th (RBC) [Ratio]Ordered By: Mari Mehta on 06-07-2024 Erythrocyte distribution width ratio 16.4 % High 11.6-14.6 [facility] Erythrocyte distribution width standard deviation 59.5 fl High 35.1-43.9 [facility] Erythrocyte distribution wid th ratioOrdered By: Mari Mehta on 06-07-2024 Erythrocyte distribution width (RBC) [Ratio] 16.4 % High 11.6-14.6 [facility] Erythrocyte distribution wid th standard deviationOrdered By: Mari Mehta on 06-07-2024 Erythrocyte distribution width (RBC) [Ratio] 59.5 fl High 35.1-43.9 [facility] Hematocrit Auto (Bld) [Volum e fraction]Ordered By: Mari Mehta on 06-07-2024 Hematocrit (Bld) [Volume fraction] 30.1 % Low 37-47 [facility] Automated blood hematocrit (percentage) 30.1 % Low 37-47 [facility] Hemoglobin measurementOrdere d By: Mari Mehta on 06-07-2024 Hemoglobin (Bld) [Mass/Vol] 9.3 g/dL Low 12.0-15.0 [facility] Hemoglobin measurement 9.3 g/dL Low 12.0-15.0 [facility] MCV (RBC) [Entitic vol]Order ed By: Mari Mehta on 06-07-2024 MCV (mean corpuscular volume) determination 99.3 fL High 81-99 [facility] MCV (mean corpuscular volume ) determinationOrdered By: Mari Mehta on 06-07-2024 MCV (RBC) [Entitic vol] 99.3 fL High 81-99 [facility] Mean corpuscular hemoglobin (MCH) determinationOrdered By: Mari Mehta on 06-07-2024 MCH (RBC) [Entitic mass] 30.7 pg 27.0-32.0 [facility] Mean corpuscular hemoglobin (MCH) determination 30.7 pg 27.0-32.0 [facility] Mean corpuscular hemoglobin concentration (MCHC) determinationOrdered By: Mari Mehta on 06-07-2024 Mean corpuscular hemoglobin concentration (MCHC) determination 30.9 g/dL Low 32-36 [facility] Mean platelet volume determi nationOrdered By: Mari Mehta on 06-07-2024 Mean platelet volume determination 12.4 fl High 6.2-12.0 [facility] Platelet countOrdered By: Manjeet Mehta on 06-07-2024 Platelets (Bld) [#/Vol] 241 10*3/uL 150-450 [facility] Platelet count 241 K/mm3 150-450 [facility] RBC Auto (Bld) [#/Vol]Ordere d By: Mari Mehta on 06-07-2024 RBC (Bld) [#/Vol] 3.03 10*6/uL Low 4.2-5.4 [facility] Automated blood erythrocyte count 3.03 M/mm3 Low 4.2-5.4 [facility] Renal Profileon 06-07-2024 Albumin [Mass/Vol] 2.7 g/dL Low 3.4-4.8 [facility] Comment on above: Performed By: #### L 500.3600, L100.0500 ####[facility] [address] [place], [address] BUN/CRE 24.2 RATIO High 10-20 [facility] Comment on above: Performed By: #### L 500.3600, L100.0500 ####[facility] [address] [place], [address] Calcium [Mass/Vol] 8.4 mg/dL Normal 7.6-11.0 [facility] Comment on above: Performed By: #### L 500.3600, L100.0500 ####[facility] [address] [place], [address] Chloride [Moles/Vol] 103 mmol/L Normal 96-108 [facility] Comment on above: Performed By: #### L 500.3600, L100.0500 ####[facility] [address] [place], [address] CO2 [Moles/Vol] 25.0 mmol/L Normal 22.0-29.0 [facility] Comment on above: Performed By: #### L 500.3600, L100.0500 ####[facility] [address] [place], [address] Creatinine [Mass/Vol] 1.78 mg/dL High 0.70-1.20 [facility] Comment on above: Performed By: #### L 500.3600, L100.0500 ####[facility] [address] [place], [address] ECRCL 26.74 ml/min Low 50-250 [facility] Comment on above: Performed By: #### L 500.3600, L100.0500 ####[facility] [address] [place], [address] GFR/1.73 sq M.predicted among non-blacks MDRD (S/P/Bld) [Vol rate/Area] 28 mL/min/{1.73_m2} Low >60 [facility] Comment on above: Result Comment: mL/m in/1.73m2 CKD-EPI Creatinine Equation (2020) Performed By: #### L 500.3600, L100.0500 ####[facility] [address] [place], [address] Glucose [Mass/Vol] 89 mg/dL Normal 70-99 [facility] Comment on above: Performed By: #### L 500.3600, L100.0500 ####[facility] [address] [place], [address] Phosphate [Mass/Vol] 4.6 mg/dL High 2.7-4.5 [facility] Comment on above: Performed By: #### L 500.3600, L100.0500 ####[facility] [address] [place], [address] Potassium [Moles/Vol] 3.9 mmol/L Normal 3.3-5.1 [facility] Comment on above: Performed By: #### L 500.3600, L100.0500 ####[facility] [address] [place], [address] Sodium [Moles/Vol] 139 mmol/L Normal 133-145 [facility] Comment on above: Performed By: #### L 500.3600, L100.0500 ####[facility] [address] [place], [address] Urea nitrogen [Mass/Vol] 43 mg/dL High 4-19 [facility] Comment on above: Performed By: #### L 500.3600, L100.0500 ####[facility] [address] [place], [address] White blood cell (WBC) count Ordered By: Mari Mehta on 06-07-2024 WBC (Bld) [#/Vol] 7.8 10*3/uL 4.4-11.0 [facility] White blood cell (WBC) count 7.8 K/mm3 4.4-11.0 [facility] Wrist min 3 Viewson 06-07-19 25 Wrist min 3 Views Normal [facility] Basic Metabolic Profile (BMP )on 06-03-2024 Anion gap [Moles/Vol] 12 mmol/L Normal 5-15 [facility] Comment on above: Performed By: #### L 500.2500, L501.2300, L100.0600 ####[facility] [address] [place], [address] BUN/CRE 21.7 RATIO High 10-20 [facility] Comment on above: Performed By: #### L 500.2500, L501.2300, L100.0600 ####[facility] [address] [place], [address] Calcium [Mass/Vol] 8.2 mg/dL Normal 7.6-11.0 [facility] Comment on above: Performed By: #### L 500.2500, L501.2300, L100.0600 ####[facility] [address] [place], [address] Chloride [Moles/Vol] 104 mmol/L Normal 96-108 [facility] Comment on above: Performed By: #### L 500.2500, L501.2300, L100.0600 ####[facility] [address] [place], [address] CO2 [Moles/Vol] 23.4 mmol/L Normal 22.0-29.0 [facility] Comment on above: Performed By: #### L 500.2500, L501.2300, L100.0600 ####[facility] [address] [place], [address] Creatinine [Mass/Vol] 2.07 mg/dL High 0.70-1.20 [facility] Comment on above: Performed By: #### L 500.2500, L501.2300, L100.0600 ####[facility] [address] [place], [address] ECRCL 23.05 ml/min Normal [facility] Comment on above: Performed By: #### L 500.2500, L501.2300, L100.0600 ####[facility] [address] [place], [address] GFR/1.73 sq M.predicted among non-blacks MDRD (S/P/Bld) [Vol rate/Area] 24 mL/min/{1.73_m2} Low >60 [facility] Comment on above: Result Comment: mL/m in/1.73m2 CKD-EPI Creatinine Equation (2020) Performed By: #### L 500.2500, L501.2300, L100.0600 ####[facility] [address] [place], [address] Glucose [Mass/Vol] 90 mg/dL Normal 70-99 [facility] Comment on above: Performed By: #### L 500.2500, L501.2300, L100.0600 ####[facility] [address] [place], [address] Potassium [Moles/Vol] 4.5 mmol/L Normal 3.3-5.1 [facility] Comment on above: Result Comment: Hemo lysis present, Results??could be affected.?? Performed By: #### L 500.2500, L501.2300, L100.0600 ####[facility] [address] [place], [address] Sodium [Moles/Vol] 140 mmol/L Normal 133-145 [facility] Comment on above: Performed By: #### L 500.2500, L501.2300, L100.0600 ####[facility] [address] [place], [address] Urea nitrogen [Mass/Vol] 45 mg/dL High 4-19 [facility] Comment on above: Performed By: #### L 500.2500, L501.2300, L100.0600 ####[facility] [address] [place], [address] HH, Hemoglobin AND Hematocri ton 06-03-2024 Hematocrit (Bld) [Volume fraction] 27.1 % Low 37-47 [facility] Comment on above: Performed By: #### L 500.2500, L501.2300, L100.0600 ####[facility] [address] [place], [address] Hemoglobin (Bld) [Mass/Vol] 8.1 g/dL Low 12.0-15.0 [facility] Comment on above: Performed By: #### L 500.2500, L501.2300, L100.0600 ####[facility] [address] [place], [address] Phosphoruson 06-03-2024 Phosphate [Mass/Vol] 4.9 mg/dL High 2.7-4.5 [facility] Comment on above: Performed By: #### L 500.2500, L501.2300, L100.0600 ####[facility] [address] [place], [address] Estimated glomerular filtrat ion rate (GFR) AmericanOrdered By: Mari Mehta on 05-30-2024 Estimated glomerular filtration rate (GFR) 32 mL/min Low >60 [facility] HH, Hemoglobin AND Hematocri ton 05-30-2024 Hematocrit (Bld) [Volume fraction] 27.6 % Low 37-47 [facility] Comment on above: Performed By: #### L 500.3600, L100.0600 ####[facility] [address] [place], [address] Hemoglobin (Bld) [Mass/Vol] 8.3 g/dL Low 12.0-15.0 [facility] Comment on above: Performed By: #### L 500.3600, L100.0600 ####[facility] [address] [place], [address] Renal Profileon 05-30-2024 Albumin [Mass/Vol] 1.9 g/dL Low 3.2-5.0 [facility] Comment on above: Performed By: #### L 500.3600, L100.0600 ####[facility] [address] [place], [address] BUN/CRE 22.1 RATIO High 10-20 [facility] Comment on above: Performed By: #### L 500.3600, L100.0600 ####[facility] [address] [place], [address] CA,Total 8.4 mg/dL Low 8.5-10.1 [facility] Comment on above: Performed By: #### L 500.3600, L100.0600 ####[facility] [address] [place], [address] Chloride [Moles/Vol] 106 mmol/L Normal 98-107 [facility] Comment on above: Performed By: #### L 500.3600, L100.0600 ####[facility] [address] [place], [address] CO2 [Moles/Vol] 27.0 mmol/L Normal 21.0-32.0 [facility] Comment on above: Performed By: #### L 500.3600, L100.0600 ####[facility] [address] [place], [address] Creatinine [Mass/Vol] 1.95 mg/dL High 0.55-1.02 [facility] Comment on above: Result Comment: The validity of the calculated GFR GFRAA in patients over70 years has not been determined. Clinical correlation isessential. Performed By: #### L 500.3600, L100.0600 ####[facility] [address] [place], [address] ECRCL 24.28 ml/min Normal [facility] Comment on above: Performed By: #### L 500.3600, L100.0600 ####[facility] [address] [place], [address] EST GFR - AA 32 mL/min Low >60 [facility] Comment on above: Result Comment: Afri can Colombian GFR Calc Performed By: #### L 500.3600, L100.0600 ####[facility] [address] [place], [address] GFR/1.73 sq M.predicted among non-blacks MDRD (S/P/Bld) [Vol rate/Area] 26 mL/min/{1.73_m2} Low >60 [facility] Comment on above: Result Comment: Non- GFR Calc Performed By: #### L 500.3600, L100.0600 ####[facility] [address] [place], [address] Glucose [Mass/Vol] 86 mg/dL Normal 74-106 [facility] Comment on above: Performed By: #### L 500.3600, L100.0600 ####[facility] [address] [place], [address] Phosphate [Mass/Vol] 3.7 mg/dL Normal 2.5-4.9 [facility] Comment on above: Performed By: #### L 500.3600, L100.0600 ####[facility] [address] [place], [address] Potassium [Moles/Vol] 4.8 mmol/L Normal 3.5-5.1 [facility] Comment on above: Performed By: #### L 500.3600, L100.0600 ####[facility] [address] [place], [address] Sodium [Moles/Vol] 140 mmol/L Normal 136-145 [facility] Comment on above: Performed By: #### L 500.3600, L100.0600 ####[facility] [address] [place], [address] Urea nitrogen [Mass/Vol] 43 mg/dL High 7-18 [facility] Comment on above: Performed By: #### L 500.3600, L100.0600 ####[facility] [address] [place], [address] Absolute lymphocyte countOrd ered By: Mari Janine on 05-27-2024 Lymphocytes Auto (Unsp spec) [#/Vol] 1.59 10*3/uL 0.83-4.51 [facility] Absolute neutrophil countOrd ered By: Mari Mehta on 05-27-2024 Absolute neutrophil count 4.5 X10^3/uL 2.0-7.7 [facility] Albumin, Serumon 05-27-2024 Albumin [Mass/Vol] 2.2 g/dL Low 3.2-5.0 [facility] Comment on above: Performed By: #### L 501.1800, L100.0100, L500.2500 ####[facility] [address] [place], [address] Automated lymphocyte count a s percentage of total leukocytesOrdered By: Mari Mehta on 05-27-2024 Lymphocytes/100 WBC Auto (Unsp spec) 22.7 % 19-41 [facility] Basic Metabolic Profile (BMP )on 05-27-2024 BUN/CRE 21.2 RATIO High 10-20 [facility] Comment on above: Performed By: #### L 501.1800, L100.0100, L500.2500 ####[facility] [address] [place], [address] CA,Total 8.4 mg/dL Low 8.5-10.1 [facility] Comment on above: Performed By: #### L 501.1800, L100.0100, L500.2500 ####[facility] [address] [place], [address] Chloride [Moles/Vol] 106 mmol/L Normal 98-107 [facility] Comment on above: Performed By: #### L 501.1800, L100.0100, L500.2500 ####[facility] [address] [place], [address] CO2 [Moles/Vol] 24.0 mmol/L Normal 21.0-32.0 [facility] Comment on above: Performed By: #### L 501.1800, L100.0100, L500.2500 ####[facility] [address] [place], [address] Creatinine [Mass/Vol] 1.98 mg/dL High 0.55-1.02 [facility] Comment on above: Result Comment: The validity of the calculated GFR GFRAA in patients over70 years has not been determined. Clinical correlation isessential. Performed By: #### L 501.1800, L100.0100, L500.2500 ####[facility] [address] [place], [address] ECRCL 24.07 ml/min Normal [facility] Comment on above: Performed By: #### L 501.1800, L100.0100, L500.2500 ####[facility] [address] [place], [address] EST GFR - AA 31 mL/min Low >60 [facility] Comment on above: Result Comment: Afri can Colombian GFR Calc Performed By: #### L 501.1800, L100.0100, L500.2500 ####[facility] [address] [place], [address] GAP 10 Normal 5-15 [facility] Comment on above: Performed By: #### L 501.1800, L100.0100, L500.2500 ####[facility] [address] [place], [address] GFR/1.73 sq M.predicted among non-blacks MDRD (S/P/Bld) [Vol rate/Area] 26 mL/min/{1.73_m2} Low >60 [facility] Comment on above: Result Comment: Non- GFR Calc Performed By: #### L 501.1800, L100.0100, L500.2500 ####[facility] [address] [place], [address] Glucose [Mass/Vol] 85 mg/dL Normal 74-106 [facility] Comment on above: Performed By: #### L 501.1800, L100.0100, L500.2500 ####[facility] [address] [place], [address] Potassium [Moles/Vol] 4.2 mmol/L Normal 3.5-5.1 [facility] Comment on above: Performed By: #### L 501.1800, L100.0100, L500.2500 ####[facility] [address] [place], [address] Sodium [Moles/Vol] 140 mmol/L Normal 136-145 [facility] Comment on above: Performed By: #### L 501.1800, L100.0100, L500.2500 ####[facility] [address] [place], [address] Urea nitrogen [Mass/Vol] 42 mg/dL High 7-18 [facility] Comment on above: Performed By: #### L 501.1800, L100.0100, L500.2500 ####[facility] [address] [place], [address] Basophil percentageOrdered B y: Mari Mehta on 05-27-2024 Basophils/100 WBC (Bld) 1.0 % 0-1 [facility] Basophil percentage 1.0 % 0-1 [facility] CBC W/Diff, Automatedon 05-08 Absolute Lymph 1.59 X10 3/uL Normal 0.83-4.51 [facility] Comment on above: Performed By: #### L 501.1800, L100.0100, L500.2500 ####[facility] [address] [place], [address] Absolute Neut 4.5 X10 3/uL Normal 2.0-7.7 [facility] Comment on above: Performed By: #### L 501.1800, L100.0100, L500.2500 ####[facility] [address] [place], [address] Basophils/100 WBC (Bld) 1.0 % Normal 0-1 [facility] Comment on above: Performed By: #### L 501.1800, L100.0100, L500.2500 ####[facility] [address] [place], [address] Eosinophils/100 WBC (Bld) 4.3 % Normal 0-5 [facility] Comment on above: Performed By: #### L 501.1800, L100.0100, L500.2500 ####[facility] [address] [place], [address] Erythrocyte distribution width (RBC) [Ratio] 17.0 % High 11.6-14.6 [facility] Comment on above: Performed By: #### L 501.1800, L100.0100, L500.2500 ####[facility] [address] [place], [address] Hematocrit (Bld) [Volume fraction] 28.2 % Low 37-47 [facility] Comment on above: Performed By: #### L 501.1800, L100.0100, L500.2500 ####[facility] [address] [place], [address] Hemoglobin (Bld) [Mass/Vol] 8.5 g/dL Low 12.0-15.0 [facility] Comment on above: Performed By: #### L 501.1800, L100.0100, L500.2500 ####[facility] [address] [place], [address] IG% 0.700 Normal 0.0-0.9 [facility] Comment on above: Result Comment: IG% - Immature Granulocytes (promyelocytes, myelocytes andmetamyelocytes) > 1% indicates that a LEFT SHIFT is Present. Performed By: #### L 501.1800, L100.0100, L500.2500 ####[facility] [address] [place], [address] Lymphocytes/100 WBC (Bld) 22.7 % Normal 19-41 [facility] Comment on above: Performed By: #### L 501.1800, L100.0100, L500.2500 ####[facility] [address] [place], [address] MCH (RBC) [Entitic mass] 30.1 pg Normal 27.0-32.0 [facility] Comment on above: Performed By: #### L 501.1800, L100.0100, L500.2500 ####[facility] [address] [place], [address] MCHC (RBC) [Mass/Vol] 30.1 g/dL Low 32-36 [facility] Comment on above: Performed By: #### L 501.1800, L100.0100, L500.2500 ####[facility] [address] [place], [address] MCV (RBC) [Entitic vol] 100.0 fL High 81-99 [facility] Comment on above: Performed By: #### L 501.1800, L100.0100, L500.2500 ####[facility] [address] [place], [address] Monocytes/100 WBC (Bld) 7.6 % Normal 0-10 [facility] Comment on above: Performed By: #### L 501.1800, L100.0100, L500.2500 ####[facility] [address] [place], [address] Neutrophils/100 WBC (Bld) 63.7 % Normal 47-70 [facility] Comment on above: Performed By: #### L 501.1800, L100.0100, L500.2500 ####[facility] [address] [place], [address] Nucleated RBC (Bld) [#/Vol] 0 10*3/uL Normal 0-5 [facility] Comment on above: Performed By: #### L 501.1800, L100.0100, L500.2500 ####[facility] [address] [place], [address] Platelet mean volume (Bld) [Entitic vol] 12.1 fL High 6.2-12.0 [facility] Comment on above: Performed By: #### L 501.1800, L100.0100, L500.2500 ####[facility] [address] [place], [address] Platelets (Bld) [#/Vol] 314 10*3/uL Normal 150-450 [facility] Comment on above: Performed By: #### L 501.1800, L100.0100, L500.2500 ####[facility] [address] [place], [address] RBC (Bld) [#/Vol] 2.82 10*6/uL Low 4.2-5.4 [facility] Comment on above: Performed By: #### L 501.1800, L100.0100, L500.2500 ####[facility] [address] [place], [address] RDW SD 62.2 fl High 35.1-43.9 [facility] Comment on above: Performed By: #### L 501.1800, L100.0100, L500.2500 ####[facility] [address] [place], [address] WBC (Bld) [#/Vol] 7.0 10*3/uL Normal 4.4-11.0 [facility] Comment on above: Performed By: #### L 501.1800, L100.0100, L500.2500 ####[facility] [address] [place], [address] Eosinophil percentageOrdered By: Mari Mehta on 05-27-2024 Eosinophils/100 WBC (Bld) 4.3 % 0-5 [facility] Eosinophil percentage 4.3 % 0-5 [facility] Immature granulocytes/100 WB C Auto (Bld)Ordered By: Mari Mehta on 05-27-2024 Immature granulocytes/100 WBC (Bld) 0.700 % 0.0-0.9 [facility] Automated immature granulocyte percentage 0.700 % 0.0-0.9 [facility] Lymphocytes Auto (Unsp spec) [#/Vol]Ordered By: Mari Mehta on 05-27-2024 Absolute lymphocyte count 1.59 X10^3/uL 0.83-4.51 [facility] Lymphocytes/100 WBC Auto (Un sp spec)Ordered By: Mari Mehta on 05-27-2024 Automated lymphocyte count as percentage of total leukocytes 22.7 % 19-41 [facility] Monocyte percentageOrdered B y: Mari eMhta on 05-27-2024 Monocytes/100 WBC (Bld) 7.6 % 0-10 [facility] Monocyte percentage 7.6 % 0-10 [facility] Neutrophil percentageOrdered By: Mari Mehta on 05-27-2024 Neutrophils/100 WBC (Bld) 63.7 % 47-70 [facility] Neutrophil percentage 63.7 % 47-70 [facility] Nucleated red blood cell per centageOrdered By: Mari Mehta on 05-27-2024 Nucleated red blood cell percentage 0 % 0-5 [facility] HLA B27on 05-25-2024 HLA B27 Negative Normal . [facility] Comment on above: Result Comment: HLA- B*27 UliiogojY38 allele interpretation for all loci based on IMGT/HLAdatabase version 3.51.0This test was developed and its performance characteristicsdetermined by [employer]. It has not been cleared or approvedby the Food and Drug Administration.The FDA has determined that such clearance or approval isnot necessary.[facility] CLIA ID Number [id number] test was performed using Polymerase Chain Reaction(PCR) and Sequence Specific Oligonucleotide Probes (SSOP)technique. Sequence Based Typing (SBT) may be used as asupplemental method when necessary.If you have questions, please call [facility] customer serviceat or email at [email or web address].Performed at: [address] [place] [address] [id number] Director: Marie Nowak PhD, Phone: [phone] Performed By: #### L 2780.1400, L101.9900 ####[facility] [address] [place], [place], [address] Basic Metabolic Profile (BMP )on 05-23-2024 BUN Normal -18 [facility] Comment on above: Order Comment: uto x 2 phleb nurse adela was notified. Result Comment: OM Angel ANCEL REQUEST Performed By: #### L 500.2500 ####[facility] [address] [place], [address] BUN/CRE Normal 10-20 [facility] Comment on above: Order Comment: uto x 2 phleb nurse adela was notified. Result Comment: OM C ANCEL REQUEST Performed By: #### L 500.2500 ####[facility] [address] [place], [address] CA,Total Normal 8.5-10.1 [facility] Comment on above: Order Comment: uto x 2 phleb nurse adela was notified. Result Comment: OM C ANCEL REQUEST Performed By: #### L 500.2500 ####[facility] [address] [place], [address] CL Normal 98-107 [facility] Comment on above: Order Comment: uto x 2 phleb nurse adela was notified. Result Comment: OM C ANCEL REQUEST Performed By: #### L 500.2500 ####[facility] [address] [facility] [address] CO2 Normal 21.0-32.0 [facility] Comment on above: Order Comment: uto x 2 phleb nurse adela was notified. Result Comment: OM C ANCEL REQUEST Performed By: #### L 500.2500 ####[facility] [address] [place], [address] CREAT,SERUM Normal 0.55-1.02 [facility] Comment on above: Order Comment: uto x 2 phleb nurse adela was notified. Result Comment: OM C ANCEL REQUEST Performed By: #### L 500.2500 ####[facility] [address] [facility] [address] EST GFR Normal >60 [facility] Comment on above: Order Comment: uto x 2 phleb nurse adela was notified. Result Comment: OM C ANCEL REQUEST Performed By: #### L 500.2500 ####[facility] [address] [place], [address] EST GFR - AA Normal >60 [facility] Comment on above: Order Comment: uto x 2 phleb nurse adela was notified. Result Comment: OM C ANCEL REQUEST Performed By: #### L 500.2500 ####[facility] [address] [place], [address] GAP Normal 5-15 [facility] Comment on above: Order Comment: uto x 2 phleb nurse adela was notified. Result Comment: OM C ANCEL REQUEST Performed By: #### L 500.2500 ####[facility] [address] [place], [address] GLU Normal 74-106 [facility] Comment on above: Order Comment: uto x 2 phleb nurse adela was notified. Result Comment: OM C ANCEL REQUEST Performed By: #### L 500.2500 ####[facility] [address] [place], [address] Potassium Normal 3.5-5.1 [facility] Comment on above: Order Comment: uto x 2 phleb nurse adela was notified. Result Comment: OM C ANCEL REQUEST Performed By: #### L 500.2500 ####[facility] [address] [place], [address] Basic Metabolic Profile (BMP) Normal 136-145 [facility] Comment on above: Order Comment: uto x 2 phleb nurse adela was notified. Result Comment: OM C ANCEL REQUEST Performed By: #### L 500.2500 ####[facility] [address] [place], [address] Modified Barium Swallow Stud yon 05-23-2024 Modified Barium Swallow Study Normal [facility] Basic Metabolic Profile (BMP )on 05-22-2024 BUN/CRE 22.8 RATIO High 10-20 [facility] Comment on above: Performed By: #### L 500.2500, L100.0500 ####[facility] [address] [place], [address] CA,Total 8.2 mg/dL Low 8.5-10.1 [facility] Comment on above: Performed By: #### L 500.2500, L100.0500 ####[facility] [address] [place], [address] Chloride [Moles/Vol] 111 mmol/L High 98-107 [facility] Comment on above: Performed By: #### L 500.2500, L100.0500 ####[facility] [address] [place], [address] CO2 [Moles/Vol] 27.0 mmol/L Normal 21.0-32.0 [facility] Comment on above: Performed By: #### L 500.2500, L100.0500 ####[facility] [address] [place], [address] Creatinine [Mass/Vol] 1.84 mg/dL High 0.55-1.02 [facility] Comment on above: Result Comment: The validity of the calculated GFR GFRAA in patients over70 years has not been determined. Clinical correlation isessential. Performed By: #### L 500.2500, L100.0500 ####[facility] [address] [place], [address] ECRCL 25.90 ml/min Normal [facility] Comment on above: Performed By: #### L 500.2500, L100.0500 ####[facility] [address] [place], [address] EST GFR - AA 34 mL/min Low >60 [facility] Comment on above: Result Comment: Afri can Colombian GFR Calc Performed By: #### L 500.2500, L100.0500 ####[facility] [address] [place], [address] GAP 4 Low 5-15 [facility] Comment on above: Performed By: #### L 500.2500, L100.0500 ####[facility] [address] [place], [address] GFR/1.73 sq M.predicted among non-blacks MDRD (S/P/Bld) [Vol rate/Area] 28 mL/min/{1.73_m2} Low >60 [facility] Comment on above: Result Comment: Non- GFR Calc Performed By: #### L 500.2500, L100.0500 ####[facility] [address] [place], [address] Glucose [Mass/Vol] 87 mg/dL Normal 74-106 [facility] Comment on above: Performed By: #### L 500.2500, L100.0500 ####[facility] [address] [place], [address] Potassium [Moles/Vol] 4.2 mmol/L Normal 3.5-5.1 [facility] Comment on above: Performed By: #### L 500.2500, L100.0500 ####[facility] [address] [place], [address] Sodium [Moles/Vol] 142 mmol/L Normal 136-145 [facility] Comment on above: Performed By: #### L 500.2500, L100.0500 ####[facility] [address] [place], [address] Urea nitrogen [Mass/Vol] 42 mg/dL High 7-18 [facility] Comment on above: Performed By: #### L 500.2500, L100.0500 ####[facility] [address] [place], [address] CBC-Complete Blood Cnt No Di ffon 05-22-2024 Erythrocyte distribution width (RBC) [Ratio] 17.3 % High 11.6-14.6 [facility] Comment on above: Performed By: #### L 500.2500, L100.0500 ####[facility] [address] [place], [address] Hematocrit (Bld) [Volume fraction] 27.1 % Low 37-47 [facility] Comment on above: Performed By: #### L 500.2500, L100.0500 ####[facility] [address] [place], [address] Hemoglobin (Bld) [Mass/Vol] 8.1 g/dL Low 12.0-15.0 [facility] Comment on above: Performed By: #### L 500.2500, L100.0500 ####[facility] [address] [place], [address] MCH (RBC) [Entitic mass] 30.6 pg Normal 27.0-32.0 [facility] Comment on above: Performed By: #### L 500.2500, L100.0500 ####[facility] [address] [place], [address] MCHC (RBC) [Mass/Vol] 29.9 g/dL Low 32-36 [facility] Comment on above: Performed By: #### L 500.2500, L100.0500 ####[facility] [address] [place], [address] MCV (RBC) [Entitic vol] 102.3 fL High 81-99 [facility] Comment on above: Performed By: #### L 500.2500, L100.0500 ####[facility] [address] [place], [address] Platelet mean volume (Bld) [Entitic vol] 12.2 fL High 6.2-12.0 [facility] Comment on above: Performed By: #### L 500.2500, L100.0500 ####[facility] [address] [place], [address] Platelets (Bld) [#/Vol] 392 10*3/uL Normal 150-450 [facility] Comment on above: Performed By: #### L 500.2500, L100.0500 ####[facility] [address] [place], [address] RBC (Bld) [#/Vol] 2.65 10*6/uL Low 4.2-5.4 [facility] Comment on above: Performed By: #### L 500.2500, L100.0500 ####[facility] [address] [place], [address] RDW SD 64.2 fl High 35.1-43.9 [facility] Comment on above: Performed By: #### L 500.2500, L100.0500 ####[facility] [address] [place], [address] WBC (Bld) [#/Vol] 5.7 10*3/uL Normal 4.4-11.0 [facility] Comment on above: Performed By: #### L 500.2500, L100.0500 ####[facility] [address] [place], [address] BRCon 05-20-2024 RC Normal [facility] Comment on above: Result Comment: [id number] ABN RC TRANSFUSED 05/20/24 [id number] ABN RC NOT AVAILABLE Performed By: #### B TS, BRC, L100.0600 ####[facility] [address] [place], [address] Basic Metabolic Profile (BMP )on 05-20-2024 BUN/CRE 25.4 RATIO High 10-20 [facility] Comment on above: Performed By: #### L 500.2500 ####[facility] [address] [place], [address] CA,Total 8.5 mg/dL Normal 8.5-10.1 [facility] Comment on above: Performed By: #### L 500.2500 ####[facility] [address] [place], [address] Chloride [Moles/Vol] 111 mmol/L High 98-107 [facility] Comment on above: Performed By: #### L 500.2500 ####[facility] [address] [place], [address] CO2 [Moles/Vol] 29.0 mmol/L Normal 21.0-32.0 [facility] Comment on above: Performed By: #### L 500.2500 ####[facility] [address] [place], [address] Creatinine [Mass/Vol] 1.89 mg/dL High 0.55-1.02 [facility] Comment on above: Result Comment: The validity of the calculated GFR GFRAA in patients over70 years has not been determined. Clinical correlation isessential. Performed By: #### L 500.2500 ####[facility] [address] [place], [address] ECRCL 25.21 ml/min Normal [facility] Comment on above: Performed By: #### L 500.2500 ####[facility] [address] [place], [address] EST GFR - AA 33 mL/min Low >60 [facility] Comment on above: Result Comment: Afri can Colombian GFR Calc Performed By: #### L 500.2500 ####[facility] [address] [place], [address] GAP 4 Low 5-15 [facility] Comment on above: Performed By: #### L 500.2500 ####[facility] [address] [place], [address] GFR/1.73 sq M.predicted among non-blacks MDRD (S/P/Bld) [Vol rate/Area] 27 mL/min/{1.73_m2} Low >60 [facility] Comment on above: Result Comment: Non- GFR Calc Performed By: #### L 500.2500 ####[facility] [address] [place], [address] Glucose [Mass/Vol] 95 mg/dL Normal 74-106 [facility] Comment on above: Performed By: #### L 500.2500 ####[facility] [address] [place], [address] Potassium [Moles/Vol] 4.6 mmol/L Normal 3.5-5.1 [facility] Comment on above: Performed By: #### L 500.2500 ####[facility] [address] [place], [address] Sodium [Moles/Vol] 144 mmol/L Normal 136-145 [facility] Comment on above: Performed By: #### L 500.2500 ####[facility] [address] [place], [address] Urea nitrogen [Mass/Vol] 48 mg/dL High 7-18 [facility] Comment on above: Performed By: #### L 500.2500 ####[facility] [address] [place], [address] HH, Hemoglobin AND Hematocri ton 05-20-2024 Hematocrit (Bld) [Volume fraction] 25.0 % Low 37-47 [facility] Comment on above: Performed By: #### B GERRI [place], L100.0600 ####[facility] [address] [place], [address] Hemoglobin (Bld) [Mass/Vol] 7.4 g/dL Low 12.0-15.0 [facility] Comment on above: Performed By: #### B GERRI [place], L100.0600 ####[facility] [address] [place], [address] Stool Occult Blood iFOBon STOB Normal [facility] Comment on above: Performed By: #### M 100.7900 ####[facility] [address] [place], [place], [address] Type AND Screenon 05-20-2024 ABO and Rh group Nom (Bld) Blood group AB Rh(D) positive Normal [facility] Comment on above: Order Comment: CMV N EG? NNumber of units to transfuse: 1Is there an orthostatic change in pt's BP(SBP drop>10mmHg)? YIs pt's HR > 100 bpm? NReason for Ordering Blood: AcuteAre the blood/blood products to be transfused? YIs the patient having/had surgery? Hanna Rodriges Performed By: #### B [facility], L100.0600 ####[facility] [address] [place], [address] Ab SCREEN GEL Negative Normal [facility] Comment on above: Order Comment: CMV N EG? NNumber of units to transfuse: 1Is there an orthostatic change in pt's BP(SBP drop>10mmHg)? YIs pt's HR > 100 bpm? NReason for Ordering Blood: AcuteAre the blood/blood products to be transfused? YIs the patient having/had surgery? Hanna Rodriges Performed By: #### B [facility], L100.0600 ####[facility] [address] [place], [address] ALP [Catalytic activity/Vol] Ordered By: Mari Mehta on 05-19-2024 Serum or plasma alkaline phosphatase measurement 78 U/L 45-117 [facility] ALT [Catalytic activity/Vol] Ordered By: Mari Mehta on 05-19-2024 Serum or plasma alanine aminotransferase (ALT) measurement 24 U/L 13-56 [facility] Basic Metabolic Profile (BMP )on 05-19-2024 BUN/CRE 32.5 RATIO High 10-20 [facility] Comment on above: Performed By: #### L 500.2500, L501.5200, L100.0500 ####[facility] [address] [place], [address] CA,Total 7.9 mg/dL Low 8.5-10.1 [facility] Comment on above: Performed By: #### L 500.2500, L501.5200, L100.0500 ####[facility] [address] [place], [address] Chloride [Moles/Vol] 112 mmol/L High 98-107 [facility] Comment on above: Performed By: #### L 500.2500, L501.5200, L100.0500 ####[facility] [address] [place], [address] CO2 [Moles/Vol] 27.0 mmol/L Normal 21.0-32.0 [facility] Comment on above: Performed By: #### L 500.2500, L501.5200, L100.0500 ####[facility] [address] [place], [address] Creatinine [Mass/Vol] 1.69 mg/dL High 0.55-1.02 [facility] Comment on above: Result Comment: The validity of the calculated GFR GFRAA in patients over70 years has not been determined. Clinical correlation isessential. Performed By: #### L 500.2500, L501.5200, L100.0500 ####[facility] [address] [place], [address] ECRCL 28.20 ml/min Normal [facility] Comment on above: Performed By: #### L 500.2500, L501.5200, L100.0500 ####[facility] [address] [place], [address] EST GFR - AA 37 mL/min Low >60 [facility] Comment on above: Result Comment: Afri can Colombian GFR Calc Performed By: #### L 500.2500, L501.5200, L100.0500 ####[facility] [address] [place], [address] GAP 6 Normal 5-15 [facility] Comment on above: Performed By: #### L 500.2500, L501.5200, L100.0500 ####[facility] [address] [place], [address] GFR/1.73 sq M.predicted among non-blacks MDRD (S/P/Bld) [Vol rate/Area] 31 mL/min/{1.73_m2} Low >60 [facility] Comment on above: Result Comment: Non- GFR Calc Performed By: #### L 500.2500, L501.5200, L100.0500 ####[facility] [address] [place], [address] Glucose [Mass/Vol] 89 mg/dL Normal 74-106 [facility] Comment on above: Performed By: #### L 500.2500, L501.5200, L100.0500 ####[facility] [address] [place], [address] Potassium [Moles/Vol] 4.2 mmol/L Normal 3.5-5.1 [facility] Comment on above: Performed By: #### L 500.2500, L501.5200, L100.0500 ####[facility] [address] [place], [address] Sodium [Moles/Vol] 145 mmol/L Normal 136-145 [facility] Comment on above: Performed By: #### L 500.2500, L501.5200, L100.0500 ####[facility] [address] [place], [address] Urea nitrogen [Mass/Vol] 55 mg/dL High 7-18 [facility] Comment on above: Performed By: #### L 500.2500, L501.5200, L100.0500 ####[facility] [address] [place], [address] Bilirubin directOrdered By: Mari Landeroskunal on 05-19-2024 Bilirubin.direct [Mass/Vol] 0.16 mg/dL 0.00-0.30 [facility] Bilirubin, totalOrdered By: Mari Landeroskunal on 05-19-2024 Bilirubin [Mass/Vol] 0.40 mg/dL 0.20-1.00 [facility] Bilirubin, total 0.40 mg/dL 0.20-1.00 [facility] Bilirubin.direct [Mass/Vol]O rdered By: Mari Landeroskunal on 05-19-2024 Bilirubin direct 0.16 mg/dL 0.00-0.30 [facility] C-reactive protein measureme nt by high sensitivity methodOrdered By: Mari Landeroskunal on 05-19-2024 C-reactive protein measurement by high sensitivity method 80.50 mg/L High 0.0-3.0 [facility] C-reactive protein measurement by high sensitivity method 80.50 mg/L High 0.0-3.0 [facility] CBC-Complete Blood Cnt No Di ffon 05-19-2024 Erythrocyte distribution width (RBC) [Ratio] 17.2 % High 11.6-14.6 [facility] Comment on above: Performed By: #### L 500.2500, L501.5200, L100.0500 ####[facility] [address] [place], [address] Hematocrit (Bld) [Volume fraction] 23.4 % Low 37-47 [facility] Comment on above: Performed By: #### L 500.2500, L501.5200, L100.0500 ####[facility] [address] [place], [address] Hemoglobin (Bld) [Mass/Vol] 7.0 g/dL Low 12.0-15.0 [facility] Comment on above: Performed By: #### L 500.2500, L501.5200, L100.0500 ####[facility] [address] [place], [address] MCH (RBC) [Entitic mass] 30.7 pg Normal 27.0-32.0 [facility] Comment on above: Performed By: #### L 500.2500, L501.5200, L100.0500 ####[facility] [address] [place], [address] MCHC (RBC) [Mass/Vol] 29.9 g/dL Low 32-36 [facility] Comment on above: Performed By: #### L 500.2500, L501.5200, L100.0500 ####[facility] [address] [place], [address] MCV (RBC) [Entitic vol] 102.6 fL High 81-99 [facility] Comment on above: Performed By: #### L 500.2500, L501.5200, L100.0500 ####[facility] [address] [place], [address] Platelet mean volume (Bld) [Entitic vol] 12.6 fL High 6.2-12.0 [facility] Comment on above: Performed By: #### L 500.2500, L501.5200, L100.0500 ####[facility] [address] [place], [address] Platelets (Bld) [#/Vol] 441 10*3/uL Normal 150-450 [facility] Comment on above: Performed By: #### L 500.2500, L501.5200, L100.0500 ####[facility] [address] [place], [address] RBC (Bld) [#/Vol] 2.28 10*6/uL Low 4.2-5.4 [facility] Comment on above: Performed By: #### L 500.2500, L501.5200, L100.0500 ####[facility] [address] [place], [address] RDW SD 64.2 fl High 35.1-43.9 [facility] Comment on above: Performed By: #### L 500.2500, L501.5200, L100.0500 ####[facility] [address] [place], [address] WBC (Bld) [#/Vol] 6.3 10*3/uL Normal 4.4-11.0 [facility] Comment on above: Performed By: #### L 500.2500, L501.5200, L100.0500 ####[facility] [address] [place], [address] CRPon 05-19-2024 C-REACTIVE PROT 80.50 mg/L High 0.0-3.0 [facility] Comment on above: Result Comment: C-Re active Protein (CRP) provides useful information for thediagnosis, therapy and monitoring of inflammatory processesand associated diseases. For the evaluation of Relative Riskfor Cardiovascular Disease, a High Sensitivity CRP (HSCRP)should be ordered. Performed By: #### L 501.5200, L501.6710, L503.6030, L501.2300, L500.3400 ####[facility] [address] [place], [address] ESR (Bld) [Velocity]Ordered By: Mari Mehta on 05-19-2024 Erythrocyte sedimentation rate 32 mm/hr High 0-30 [facility] Erythrocyte Sed Rateon 05-19 SED RATE 32 mm/hr High 0-30 [facility] Comment on above: Performed By: #### L 3410.1400, L101.9900 ####[facility] [address] [place], [address] Erythrocyte sedimentation ra teOrdered By: Mari Mehta on 05-19-2024 ESR (Bld) [Velocity] 32 mm/h High 0-30 [facility] Human leukocyte antigen (HLA ) B27 typingOrdered By: Mari Mehta on 05-19-2024 Human leukocyte antigen (HLA) B27 typing Negative . [facility] Iron (Unsp spec) [Mass/Mass] Ordered By: Mari Landeroskunal on 05-19-2024 Iron measurement (mass/mass) 47 ug/dL Low 50-170 [facility] Iron measurement (mass/mass) Ordered By: Mari Mehta on 05-19-2024 Iron (Unsp spec) [Mass/Mass] 47 ug/dL Low 50-170 [facility] Iron saturation [Mass fracti on]Ordered By: Mari Landeroskunal on 05-19-2024 Serum or plasma iron saturation measurement (mass fraction) 19.9 % 15.0-55.0 [facility] Iron+Iron Binding Capacityon 05-19-2024 Iron [Mass/Vol] 47 ug/dL Low 50-170 [facility] Comment on above: Performed By: #### L 501.5200, L501.6710, L503.6030, L501.2300, L500.3400 ####[facility] [address] [place], [address] IRON SATURATION 19.9 Normal 15.0-55.0 [facility] Comment on above: Performed By: #### L 501.5200, L501.6710, L503.6030, L501.2300, L500.3400 ####[facility] [address] [place], [address] TIBC 236 ug/dL Low 250-450 [facility] Comment on above: Performed By: #### L 501.5200, L501.6710, L503.6030, L501.2300, L500.3400 ####[facility] [address] [place], [address] Liver Profileon 05-19-2024 Albumin [Mass/Vol] 2.2 g/dL Low 3.2-5.0 [facility] Comment on above: Performed By: #### L 501.5200, L501.6710, L503.6030, L501.2300, L500.3400 ####[facility] [address] [place], [address] ALK P 78 U/L Normal 45-117 [facility] Comment on above: Performed By: #### L 501.5200, L501.6710, L503.6030, L501.2300, L500.3400 ####[facility] [address] [place], [address] ALT [Catalytic activity/Vol] 24 U/L Normal 13-56 [facility] Comment on above: Performed By: #### L 501.5200, L501.6710, L503.6030, L501.2300, L500.3400 ####[facility] [address] [place], [address] AST [Catalytic activity/Vol] 19 U/L Normal 15-37 [facility] Comment on above: Performed By: #### L 501.5200, L501.6710, L503.6030, L501.2300, L500.3400 ####[facility] [address] [place], [address] Bilirubin [Mass/Vol] 0.40 mg/dL Normal 0.20-1.00 [facility] Comment on above: Result Comment: For patients on eltrombopag therapy, use of Dimension [place] TBIL is not recommended. Performed By: #### L 501.5200, L501.6710, L503.6030, L501.2300, L500.3400 ####[facility] [address] [place], [address] Bilirubin.direct [Mass/Vol] 0.16 mg/dL Normal 0.00-0.30 [facility] Comment on above: Performed By: #### L 501.5200, L501.6710, L503.6030, L501.2300, L500.3400 ####[facility] [address] [place], [address] Globulin (S) [Mass/Vol] 3.7 g/dL Normal 2.2-4.2 [facility] Comment on above: Performed By: #### L 501.5200, L501.6710, L503.6030, L501.2300, L500.3400 ####[facility] [address] [place], [address] T PROT 5.9 g/dL Low 6.4-8.2 [facility] Comment on above: Performed By: #### L 501.5200, L501.6710, L503.6030, L501.2300, L500.3400 ####[facility] [address] [place], [address] Lower GI hemoglobin IA Ql (S tl)Ordered By: Mari Mehta on 05-19-2024 Stool gastrointestinal hemoglobin detection by immunologic method Positive Abnormal [facility] Magnesiumon 05-19-2024 Magnesium [Mass/Vol] 2.2 mg/dL Normal 1.6-2.6 [facility] Comment on above: Performed By: #### L 501.5200, L501.6710, L503.6030, L501.2300, L500.3400 ####[facility] [address] [place], [address] Magnesium [Mass/Vol] 2.1 mg/dL Normal 1.6-2.6 [facility] Comment on above: Performed By: #### L 500.2500, L501.5200, L100.0500 ####[facility] [address] [place], [address] Magnesium measurementOrdered By: Mari Mehta on 05-19-2024 Magnesium [Mass/Vol] 2.2 mg/dL 1.6-2.6 [facility] Magnesium measurement 2.2 mg/dL 1.6-2.6 [facility] No Panel InformationOrdered By: Mari Mehta on 05-19-2024 19 U/L 15-37 [facility] Phosphoruson 05-19-2024 Phosphate [Mass/Vol] 3.6 mg/dL Normal 2.5-4.9 [facility] Comment on above: Performed By: #### L 501.5200, L501.6710, L503.6030, L501.2300, L500.3400 ####[facility] [address] [place], [place], [address] Phosphate [Mass/Vol] 3.9 mg/dL Normal 2.5-4.9 [facility] Comment on above: Performed By: #### L 501.2300 ####[facility] [address] [place], [place], [address] Serum globulin measurementOr dered By: Mari Mehta on 05-19-2024 Globulin (S) [Mass/Vol] 3.7 g/dL 2.2-4.2 [facility] Serum globulin measurement 3.7 g/dL 2.2-4.2 [facility] Serum or plasma alanine huertas otransferase (ALT) measurementOrdered By: Mari Mehta on 05-19-2024 ALT [Catalytic activity/Vol] 24 U/L 13-56 [facility] Serum or plasma alkaline mariya sphatase measurementOrdered By: Mari Mehta on 05-19-2024 ALP [Catalytic activity/Vol] 78 U/L 45-117 [facility] Serum or plasma iron saturat ion measurement (mass fraction)Ordered By: Mari Mehta on 05-19-2024 Iron saturation [Mass fraction] 19.9 % 15.0-55.0 [facility] Stool gastrointestinal hemog lobin detection by immunologic methodOrdered By: Mari Mehta on 05-19-2024 Lower GI hemoglobin IA Ql (Stl) Positive Abnormal [facility] TIBCOrdered By: Mari Mehta on 05-19-2024 TIBC 236 ug/dL Low 250-450 [facility] Thoracic Spine 3 Viewson Thoracic Spine 3 Views Normal [facility] Total proteinOrdered By: Shirley Mehta on 05-19-2024 Protein [Mass/Vol] 5.9 g/dL Low 6.4-8.2 [facility] Total protein 5.9 g/dL Low 6.4-8.2 [facility] GLUCOSE POCon 05-18-2024 Glucose [Mass/Vol] 94 mg/dL 70 - 99 mg/dL [facility] POC Sample Type CAPBL [facility] Glucose [Mass/Vol] 93 mg/dL 70 - 99 mg/dL [facility] POC Sample Type CAPBL [facility] Glucose [Mass/Vol] 91 mg/dL 70 - 99 mg/dL [facility] POC Sample Type CAPBL [facility] MAGNESIUMon 05-18-2024 Magnesium [Mass/Vol] 1.9 mg/dL 1.6 - 2 .6 mg/dL [facility] Magnesium [Mass/Vol] 1.9 mg/dL Normal 1.6-2.6 [facility] Comment on above: Performed By: #### M OMER, CHM7, IPB, CKB, TRIG, LDO #### [facility] (DEFAULT) [address] [place] [address] No Panel Informationon 05-18 Interpretation and review of laboratory results Normal [facility] PHOSPHATE, INORGANICon 05-18 Phosphate [Mass/Vol] 4.1 mg/dL 2.2 - 4 .6 mg/dL [facility] Phosphorous 4.1 mg/dL Normal 2.2-4.6 [facility] Comment on above: Performed By: #### M GO, CHM7, IPB, CKB, TRIG, LDO #### [facility] (DEFAULT) [address] [place], [place] [id number] CBC,PLATELETSon 05-17-2024 Erythrocyte distribution width (RBC) [Ratio] 17.2 % High 10.8 - 14.9 % [facility] Hematocrit (Bld) [Volume fraction] 25 % Low 34.9 - 44.3 % [facility] Hemoglobin (Bld) [Mass/Vol] 7.4 g/dL Low 11.4 - 15.2 g/dL [facility] Interpretation and review of laboratory results Abnormal [facility] MCH (RBC) [Entitic mass] 30.3 pg 25.9 - 33.9 pg [facility] MCHC (RBC) [Mass/Vol] 29.6 g/dL Low 31.4 - 35.9 g/dL [facility] MCV (RBC) [Entitic vol] 102.5 fL High 79.6 - 97.7 fL [facility] Platelet mean volume (Bld) [Entitic vol] 12 fL 8.5 - 12.2 fL [facility] Platelets (Bld) [#/Vol] 428 10*3/uL High 150 - 393 K/uL [facility] RBC (Bld) [#/Vol] 2.44 10*6/uL Low [facility] WBC (Bld) [#/Vol] 8.81 10*3/uL 3.99 - 11.19 K/uL [facility] Hematocrit (Bld) [Volume fraction] 25.0 % Low 34.9-44.3 [facility] Comment on above: Performed By: #### M OMER, CHM7, IPB, CKB, TRIG, LDO #### [facility] (DEFAULT) [address] [place] [address] Hemoglobin (Bld) [Mass/Vol] 7.4 g/dL Low 11.4-15.2 [facility] Comment on above: Performed By: #### M GO, CHM7, IPB, CKB, TRIG, LDO #### [facility] (DEFAULT) [address] [place] [address] MCV (RBC) [Entitic vol] 102.5 fL High 79.6-97.7 [facility] Comment on above: Performed By: #### M GO, CHM7, IPB, CKB, TRIG, LDO #### [facility] (DEFAULT) [address] [place] [address] Mean Cell Hgb 30.3 pg Normal 25.9-33.9 [facility] Comment on above: Performed By: #### M GO, CHM7, IPB, CKB, TRIG, LDO #### [facility] (DEFAULT) [address] [place] [address] Mean Cell Hgb Conc 29.6 g/dL Low 31.4-35.9 [facility] Comment on above: Performed By: #### M GO, CHM7, IPB, CKB, TRIG, LDO #### [facility] (DEFAULT) [address] [place] [address] Platelet mean volume (Bld) [Entitic vol] 12.0 fL Normal 8.5-12.2 [facility] Comment on above: Performed By: #### M GO, CHM7, IPB, CKB, TRIG, LDO #### [facility] (DEFAULT) [address] [place] [address] Platelets (Bld) [#/Vol] 428 10*3/uL High 150-393 [facility] Comment on above: Performed By: #### M GO, CHM7, IPB, CKB, TRIG, LDO #### [facility] (DEFAULT) [address] [place] [address] RBC (Bld) [#/Vol] 2.44 10*6/uL Low 3.91-5.04 [facility] Comment on above: Performed By: #### M GO, CHM7, IPB, CKB, TRIG, LDO #### [facility] (DEFAULT) [address] [place] [address] RBC Distribution 17.2 % High 10.8-14.9 [facility] Comment on above: Performed By: #### M GO, CHM7, IPB, CKB, TRIG, LDO #### [facility] (DEFAULT) [address] [place] [address], [place] [address] WBC (Bld) [#/Vol] 8.81 10*3/uL Normal 3.99-11.19 [facility] Comment on above: Performed By: #### M ROXY TELLO, IPB, CKB, TRIG, LDO #### [facility] (DEFAULT) [address] [place] [address] CHEM 7 (LYTES,BUN,CREA,GLUC) on 05-17-2024 Anion gap [Moles/Vol] 11 mmol/L 7 - 17 mmol/L [facility] Chloride [Moles/Vol] 106 mmol/L 98 - 10 8 mmol/L [facility] CO2 [Moles/Vol] 28 mmol/L 21 - 31 mmol/L [facility] Creatinine [Mass/Vol] 1.68 mg/dL High 0.50 - 1.20 mg/dL [facility] eGFR, CKD-EPI, Female 30 Low - PINF [facility] Glucose [Mass/Vol] 107 mg/dL High 70 - 99 mg/dL [facility] Interpretation and review of laboratory results Abnormal [facility] Osmolality Calc [Osmolality] 313 High [facility] Potassium [Moles/Vol] 4.2 mmol/L 3.5 - 5.0 mmol/L [facility] Sodium [Moles/Vol] 141 mmol/L 135 - 145 mmol/L [facility] Urea nitrogen [Mass/Vol] 61 mg/dL High 7 - 25 mg/dL [facility] Urea nitrogen/Creatinine [Mass ratio] 36 mg/mg [facility] Anion gap [Moles/Vol] 11 mmol/L Normal 7-17 [facility] Comment on above: Performed By: #### M ROXY TELLO, IPB, CKB, TRIG, LDO #### [facility] (DEFAULT) [address] [place] [address] Chloride [Moles/Vol] 106 mmol/L Normal 98-108 [facility] Comment on above: Performed By: #### M GO, CHM7, IPB, CKB, TRIG, LDO #### [facility] (DEFAULT) [address] [place] [address] CO2 [Moles/Vol] 28 mmol/L Normal 21-31 [facility] Comment on above: Performed By: #### M GO, CHM7, IPB, CKB, TRIG, LDO #### [facility] (DEFAULT) [address] [place] [address] Creatinine [Mass/Vol] 1.68 mg/dL High 0.50-1.20 [facility] Comment on above: Performed By: #### M GO, CHM7, IPB, CKB, TRIG, LDO #### [facility] (DEFAULT) [address] [place] [address] GFR/1.73 sq M.predicted among non-blacks MDRD (S/P/Bld) [Vol rate/Area] 30 mL/min/{1.73_m2} Low >=60 [facility] Comment on above: Result Comment: Repo rted eGFR is based on the CKD-EPI 2020 equation using creatinine, age, and sex. Performed By: #### M GO, CHM7, IPB, CKB, TRIG, LDO #### [facility] (DEFAULT) [address] [place] [address] Glucose [Mass/Vol] 107 mg/dL High 70-99 [facility] Comment on above: Performed By: #### M GO, CHM7, IPB, CKB, TRIG, LDO #### [facility] (DEFAULT) [address] [place] [address] Osmolality [Osmolality] 313 mosm/kg High 278-305 [facility] Comment on above: Performed By: #### M GO, CHM7, IPB, CKB, TRIG, LDO #### [facility] (DEFAULT) [address] [place] [address] Potassium [Moles/Vol] 4.2 mmol/L Normal 3.5-5.0 [facility] Comment on above: Performed By: #### M GO, CHM7, IPB, CKB, TRIG, LDO #### [facility] (DEFAULT) [address] [place] [address] Sodium [Moles/Vol] 141 mmol/L Normal 135-145 [facility] Comment on above: Performed By: #### M GO, CHM7, IPB, CKB, TRIG, LDO #### [facility] (DEFAULT) [address] [place] [address] Urea nitrogen [Mass/Vol] 61 mg/dL High 7-25 [facility] Comment on above: Performed By: #### M GO, CHM7, IPB, CKB, TRIG, LDO #### [facility] (DEFAULT) [address] [place] [address] Urea nitrogen/Creatinine [Mass ratio] 36 mg/mg Normal [facility] Comment on above: Performed By: #### M GO, CHM7, IPB, CKB, TRIG, LDO #### [facility] (DEFAULT) [address] [place] [address] GLUCOSE POCon 05-17-2024 Glucose [Mass/Vol] 99 mg/dL 70 - 99 mg/dL [facility] POC Sample Type CAPBL [facility] Glucose [Mass/Vol] 106 mg/dL High 70 - 99 mg/dL [facility] Interpretation and review of laboratory results Abnormal [facility] POC Sample Type CAPBL [facility] Glucose [Mass/Vol] 103 mg/dL High 70 - 99 mg/dL [facility] Interpretation and review of laboratory results Abnormal [facility] POC Sample Type CAPBL [facility] Glucose [Mass/Vol] 104 mg/dL High 70 - 99 mg/dL [facility] Interpretation and review of laboratory results Abnormal [facility] POC Sample Type CAPBL [facility] MAGNESIUMon 05-17-2024 Magnesium [Mass/Vol] 1.9 mg/dL 1.6 - 2 .6 mg/dL [facility] Magnesium [Mass/Vol] 1.9 mg/dL Normal 1.6-2.6 [facility] Comment on above: Performed By: #### M GO, CHM7, IPB, CKB, TRIG, LDO #### [facility] (DEFAULT) [address] [place] [address] No Panel Informationon 05-17 Interpretation and review of laboratory results Normal [facility] PHOSPHATE, INORGANICon 05-17 Phosphate [Mass/Vol] 3.6 mg/dL 2.2 - 4 .6 mg/dL [facility] Phosphorous 3.6 mg/dL Normal 2.2-4.6 [facility] Comment on above: Performed By: #### M GO, CHM7, IPB, CKB, TRIG, LDO #### [facility] (DEFAULT) [address] [place] [address] RF videography Hypopharynx a nd Esophagus Views W liquid and paste contrast PO during swallowingon 05-17-2024 RADIOLOGY RADIOLOGY [facility] Radiology Study observation (narrative) [facility] SPEECH MODIFIED BARIUM SWALL OWon 05-17-2024 [facility] XR FLUORO MODIFIED BARIUM SW ALLOW WITH SPEECHon 05-17-2024 XR FLUORO MODIFIED BARIUM SWALLOW WITH SPEECH EXAM: XR FLUORO MODIFIED BARIUM SWALLOW WITH SPEECH, 05/17/2024 10:06 AM COMPARISON: No prior MBS studies available for comparison. CLINICAL INDICATIONS: Dysphagia TECHNIQUE: Various consistencies of barium were given by mouth using video fluoroscopy, in conjunction with the speech language pathologist. TOTAL FLUORO TIME: 2.4 min FINDINGS: A nasogastric tube was present within the nasopharynx and cervical esophagus where it then exited the field of view. Pharyngeal Phase: Visualization of the airway was suboptimal due to overlapping shoulders despite attempts to reposition. Thin: Laryngeal penetration and sensate aspiration occurred. Mildly diffuse residue remained. Mildly thick/nectar: Laryngeal penetration sensate aspiration occurred. Mildly diffuse residue remained. Moderately thick/honey: Laryngeal penetration occurred. No obvious aspiration was visible. Trace residue remained. Pudding: No laryngeal penetration or aspiration occurred. No significant residue remained. Solid: Swallowing initiation was significantly delayed and a liquid wash was utilized to swallow the solid bolus. No obvious laryngeal penetration or aspiration occurred. No residue remained. Cervical Phase: The visible cervical phase was grossly functional. Esophageal Follow Through: Not included due to positioning limitations. IMPRESSION: 1. Laryngeal penetration and sensate aspiration of thin and nectar liquids. 2. Laryngeal penetration of honey. 3. Nasogastric tube present. Please see the speech language pathologist report for further details and dietary recommendations. Procedure performed by LIZETH Colvin under the direct supervision of Dr. Trever Prather. I personally viewed and interpreted these images and I have reviewed and approved this report. Normal [facility] CBC,PLATELETSon 05-16-2024 Erythrocyte distribution width (RBC) [Ratio] 17.7 % High 10.8 - 14.9 % [facility] Hematocrit (Bld) [Volume fraction] 26.1 % Low 34.9 - 44.3 % [facility] Hemoglobin (Bld) [Mass/Vol] 7.8 g/dL Low 11.4 - 15.2 g/dL [facility] Interpretation and review of laboratory results Abnormal [facility] MCH (RBC) [Entitic mass] 30.4 pg 25.9 - 33.9 pg [facility] MCHC (RBC) [Mass/Vol] 29.9 g/dL Low 31.4 - 35.9 g/dL [facility] MCV (RBC) [Entitic vol] 101.6 fL High 79.6 - 97.7 fL [facility] Platelet mean volume (Bld) [Entitic vol] 11.9 fL 8.5 - 12.2 fL [facility] Platelets (Bld) [#/Vol] 444 10*3/uL High 150 - 393 K/uL [facility] RBC (Bld) [#/Vol] 2.57 10*6/uL Low [facility] WBC (Bld) [#/Vol] 9.66 10*3/uL 3.99 - 11.19 K/uL [facility] Hematocrit (Bld) [Volume fraction] 26.1 % Low 34.9-44.3 [facility] Comment on above: Performed By: #### M GO, CHM7, IPB, CKB, TRIG, LDO #### [facility] (DEFAULT) [address] [place] [address] 490[address] Hemoglobin (Bld) [Mass/Vol] 7.8 g/dL Low 11.4-15.2 [facility] Comment on above: Performed By: #### M GO, CHM7, IPB, CKB, TRIG, LDO #### [facility] (DEFAULT) [address] [place] [address] 59544 MCV (RBC) [Entitic vol] 101.6 fL High 79.6-97.7 [facility] Comment on above: Performed By: #### M GO, CHM7, IPB, CKB, TRIG, LDO #### [facility] (DEFAULT) [address] [place] [address] 65717 Mean Cell Hgb 30.4 pg Normal 25.9-33.9 [facility] Comment on above: Performed By: #### M GO, CHM7, IPB, CKB, TRIG, LDO #### [facility] (DEFAULT) [address] [place] [address] 63528 Mean Cell Hgb Conc 29.9 g/dL Low 31.4-35.9 [facility] Comment on above: Performed By: #### M GO, CHM7, IPB, CKB, TRIG, LDO #### [facility] (DEFAULT) [address] [place] [address] 82616 Platelet mean volume (Bld) [Entitic vol] 11.9 fL Normal 8.5-12.2 [facility] Comment on above: Performed By: #### M GO, CHM7, IPB, CKB, TRIG, LDO #### [facility] (DEFAULT) [address] [place] [address] 70132 Platelets (Bld) [#/Vol] 444 10*3/uL High 150-393 [facility] Comment on above: Performed By: #### M GO, CHM7, IPB, CKB, TRIG, LDO #### [facility] (DEFAULT) [address] [place] [address] 49685 RBC (Bld) [#/Vol] 2.57 10*6/uL Low 3.91-5.04 [facility] Comment on above: Performed By: #### M GO, CHM7, IPB, CKB, TRIG, LDO #### [facility] (DEFAULT) [address] [place] [address] 12246 RBC Distribution 17.7 % High 10.8-14.9 [facility] Comment on above: Performed By: #### M GO, CHM7, IPB, CKB, TRIG, LDO #### [facility] (DEFAULT) [address] [place] [address] 95253 WBC (Bld) [#/Vol] 9.66 10*3/uL Normal 3.99-11.19 [facility] Comment on above: Performed By: #### M GO, CHM7, IPB, CKB, TRIG, LDO #### [facility] (DEFAULT) [address] [place] [address] 85086 CHEM 7 (LYTES,BUN,CREA,GLUC) on 05-16-2024 Anion gap [Moles/Vol] 13 mmol/L 7 - 17 mmol/L [facility] Chloride [Moles/Vol] 105 mmol/L 98 - 10 8 mmol/L [facility] CO2 [Moles/Vol] 28 mmol/L 21 - 31 mmol/L [facility] Creatinine [Mass/Vol] 1.69 mg/dL High 0.50 - 1.20 mg/dL [facility] eGFR, CKD-EPI, Female 30 Low - PINF [facility] Glucose [Mass/Vol] 120 mg/dL High 70 - 99 mg/dL [facility] Interpretation and review of laboratory results Abnormal [facility] Osmolality Calc [Osmolality] 315 High [facility] Potassium [Moles/Vol] 4.3 mmol/L 3.5 - 5.0 mmol/L [facility] Sodium [Moles/Vol] 142 mmol/L 135 - 145 mmol/L [facility] Urea nitrogen [Mass/Vol] 60 mg/dL High 7 - 25 mg/dL [facility] Urea nitrogen/Creatinine [Mass ratio] 36 mg/mg [facility] Anion gap [Moles/Vol] 13 mmol/L Normal 7-17 [facility] Comment on above: Performed By: #### R ES #### [facility] (DEFAULT) [address] [place] [address] 07270 Chloride [Moles/Vol] 105 mmol/L Normal 98-108 [facility] Comment on above: Performed By: #### R ES #### [facility] (DEFAULT) [address] [place] [address] CO2 [Moles/Vol] 28 mmol/L Normal 21-31 [facility] Comment on above: Performed By: #### R ES #### [facility] (DEFAULT) [address] [place] [address] Creatinine [Mass/Vol] 1.69 mg/dL High 0.50-1.20 [facility] Comment on above: Performed By: #### R ES #### [facility] (DEFAULT) [address] [place] [address] GFR/1.73 sq M.predicted among non-blacks MDRD (S/P/Bld) [Vol rate/Area] 30 mL/min/{1.73_m2} Low >=60 [facility] Comment on above: Result Comment: Repo rted eGFR is based on the CKD-EPI 2020 equation using creatinine, age, and sex. Performed By: #### R ES #### [facility] (DEFAULT) [address] [place] [address] 32171 Glucose [Mass/Vol] 120 mg/dL High 70-99 [facility] Comment on above: Performed By: #### R ES #### [facility] (DEFAULT) [address] [place] [address] 40599 Osmolality [Osmolality] 315 mosm/kg High 278-305 [facility] Comment on above: Performed By: #### R ES #### [facility] (DEFAULT) [address] [place] [address] 92586 Potassium [Moles/Vol] 4.3 mmol/L Normal 3.5-5.0 [facility] Comment on above: Performed By: #### R ES #### [facility] (DEFAULT) [address] [place] [address] 24541 Sodium [Moles/Vol] 142 mmol/L Normal 135-145 [facility] Comment on above: Performed By: #### R ES #### [facility] (DEFAULT) [address] [place] [address] 65538 Urea nitrogen [Mass/Vol] 60 mg/dL High 7-25 [facility] Comment on above: Performed By: #### R ES #### [facility] (DEFAULT) [address] [place] [address] 18799 Urea nitrogen/Creatinine [Mass ratio] 36 mg/mg Normal [facility] Comment on above: Performed By: #### R ES #### [facility] (DEFAULT) [address] [place] [address] 43332 GLUCOSE POCon 05-16-2024 Glucose [Mass/Vol] 117 mg/dL High 70 - 99 mg/dL [facility] Interpretation and review of laboratory results Abnormal [facility] POC Sample Type [facility] Glucose [Mass/Vol] 101 mg/dL High 70 - 99 mg/dL [facility] Interpretation and review of laboratory results Abnormal [facility] POC Sample Type [facility] Glucose [Mass/Vol] 96 mg/dL 70 - 99 mg/dL [facility] POC Sample Type [facility] Glucose [Mass/Vol] 100 mg/dL High 70 - 99 mg/dL [facility] Interpretation and review of laboratory results Abnormal [facility] POC Sample Type CAPBL [facility] MAGNESIUMon 05-16-2024 Magnesium [Mass/Vol] 1.8 mg/dL 1.6 - 2 .6 mg/dL [facility] Magnesium [Mass/Vol] 1.8 mg/dL Normal 1.6-2.6 [facility] Comment on above: Performed By: #### R ES #### [facility] (DEFAULT) [address] [place] [address] No Panel Informationon 05-16 Interpretation and review of laboratory results Normal [facility] PHOSPHATE, INORGANICon 05-16 Phosphate [Mass/Vol] 3.3 mg/dL 2.2 - 4 .6 mg/dL [facility] Phosphorous 3.3 mg/dL Normal 2.2-4.6 [facility] Comment on above: Performed By: #### R ES #### [facility] (DEFAULT) [address] [place] [address] 70333 CBC,PLATELETSon 05-15-2024 Erythrocyte distribution width (RBC) [Ratio] 17.8 % High 10.8 - 14.9 % [facility] Hematocrit (Bld) [Volume fraction] 25.7 % Low 34.9 - 44.3 % [facility] Hemoglobin (Bld) [Mass/Vol] 7.6 g/dL Low 11.4 - 15.2 g/dL [facility] Interpretation and review of laboratory results Abnormal [facility] MCH (RBC) [Entitic mass] 30.6 pg 25.9 - 33.9 pg [facility] MCHC (RBC) [Mass/Vol] 29.6 g/dL Low 31.4 - 35.9 g/dL [facility] MCV (RBC) [Entitic vol] 103.6 fL High 79.6 - 97.7 fL [facility] Platelet mean volume (Bld) [Entitic vol] 12 fL 8.5 - 12.2 fL [facility] Platelets (Bld) [#/Vol] 450 10*3/uL High 150 - 393 K/uL [facility] RBC (Bld) [#/Vol] 2.48 10*6/uL Low [facility] WBC (Bld) [#/Vol] 12.44 10*3/uL High 3.99 - 11.19 K/uL [facility] Hematocrit (Bld) [Volume fraction] 25.7 % Low 34.9-44.3 [facility] Comment on above: Performed By: #### G ASVL #### [facility] (DEFAULT) [address] [address] Hemoglobin (Bld) [Mass/Vol] 7.6 g/dL Low 11.4-15.2 [facility] Comment on above: Performed By: #### G ASVL #### [facility] (DEFAULT) [address] [address] MCV (RBC) [Entitic vol] 103.6 fL High 79.6-97.7 [facility] Comment on above: Performed By: #### G ASVL #### [facility] (DEFAULT) [address] [address] Mean Cell Hgb 30.6 pg Normal 25.9-33.9 [facility] Comment on above: Performed By: #### G ASVL #### [facility] (DEFAULT) [address] [place] [address] 19350 Mean Cell Hgb Conc 29.6 g/dL Low 31.4-35.9 [facility] Comment on above: Performed By: #### G ASVL #### [facility] (DEFAULT) [address] [place] [address] 03595 Platelet mean volume (Bld) [Entitic vol] 12.0 fL Normal 8.5-12.2 [facility] Comment on above: Performed By: #### G ASVL #### [facility] (DEFAULT) [address] [place] [address] 28881 Platelets (Bld) [#/Vol] 450 10*3/uL High 150-393 [facility] Comment on above: Performed By: #### G ASVL #### [facility] (DEFAULT) [address] [place] [address] 56617 RBC (Bld) [#/Vol] 2.48 10*6/uL Low 3.91-5.04 [facility] Comment on above: Performed By: #### G ASVL #### [facility] (DEFAULT) [address] [place] [address] 86544 RBC Distribution 17.8 % High 10.8-14.9 [facility] Comment on above: Performed By: #### G ASVL #### [facility] (DEFAULT) [address] [place] [address] 25606 WBC (Bld) [#/Vol] 12.44 10*3/uL High 3.99-11.19 [facility] Comment on above: Performed By: #### G ASVL #### [facility] (DEFAULT) [address] [place] [address] 77467 CHEM 7 (LYTES,BUN,CREA,GLUC) on 05-15-2024 Anion gap [Moles/Vol] 12 mmol/L 7 - 17 mmol/L [facility] Chloride [Moles/Vol] 104 mmol/L 98 - 10 8 mmol/L [facility] CO2 [Moles/Vol] 28 mmol/L 21 - 31 mmol/L [facility] Creatinine [Mass/Vol] 1.75 mg/dL High 0.50 - 1.20 mg/dL [facility] eGFR, CKD-EPI, Female 29 Low - PINF [facility] Glucose [Mass/Vol] 108 mg/dL High 70 - 99 mg/dL [facility] Interpretation and review of laboratory results Abnormal [facility] Osmolality Calc [Osmolality] 312 High [facility] Potassium [Moles/Vol] 4.2 mmol/L 3.5 - 5.0 mmol/L [facility] Sodium [Moles/Vol] 140 mmol/L 135 - 145 mmol/L [facility] Urea nitrogen [Mass/Vol] 63 mg/dL High 7 - 25 mg/dL [facility] Urea nitrogen/Creatinine [Mass ratio] 36 mg/mg [facility] Anion gap [Moles/Vol] 12 mmol/L Normal 7-17 [facility] Comment on above: Performed By: #### M GO, CHM7, IPB, CKB, TRIG, LDO #### [facility] (DEFAULT) [address] [place] [address] 29585 Chloride [Moles/Vol] 104 mmol/L Normal 98-108 [facility] Comment on above: Performed By: #### M GO, CHM7, IPB, CKB, TRIG, LDO #### [facility] (DEFAULT) [address] [place] [address] 51742 CO2 [Moles/Vol] 28 mmol/L Normal 21-31 [facility] Comment on above: Performed By: #### M GO, CHM7, IPB, CKB, TRIG, LDO #### [facility] (DEFAULT) [address] [place] [address] 65559 Creatinine [Mass/Vol] 1.75 mg/dL High 0.50-1.20 [facility] Comment on above: Performed By: #### M GO, CHM7, IPB, CKB, TRIG, LDO #### [facility] (DEFAULT) [address] [place] [address] 21126 GFR/1.73 sq M.predicted among non-blacks MDRD (S/P/Bld) [Vol rate/Area] 29 mL/min/{1.73_m2} Low >=60 [facility] Comment on above: Result Comment: Repo rted eGFR is based on the CKD-EPI 2020 equation using creatinine, age, and sex. Performed By: #### M GO, CHM7, IPB, CKB, TRIG, LDO #### [facility] (DEFAULT) [address] [place] [address] 94907 Glucose [Mass/Vol] 108 mg/dL High 70-99 [facility] Comment on above: Performed By: #### M GO, CHM7, IPB, CKB, TRIG, LDO #### [facility] (DEFAULT) [address] [place] [address] 56613 Osmolality [Osmolality] 312 mosm/kg High 278-305 [facility] Comment on above: Performed By: #### M GO, CHM7, IPB, CKB, TRIG, LDO #### [facility] (DEFAULT) [address] [place] [address] 61856 Potassium [Moles/Vol] 4.2 mmol/L Normal 3.5-5.0 [facility] Comment on above: Performed By: #### M GO, CHM7, IPB, CKB, TRIG, LDO #### [facility] (DEFAULT) [address] [place] [address] 19867 Sodium [Moles/Vol] 140 mmol/L Normal 135-145 [facility] Comment on above: Performed By: #### M GO, CHM7, IPB, CKB, TRIG, LDO #### [facility] (DEFAULT) [address] [place] [address] Urea nitrogen [Mass/Vol] 63 mg/dL High 7-25 [facility] Comment on above: Performed By: #### M GO, CHM7, IPB, CKB, TRIG, LDO #### [facility] (DEFAULT) [address] [place] [address] Urea nitrogen/Creatinine [Mass ratio] 36 mg/mg Normal [facility] Comment on above: Performed By: #### M GO, CHM7, IPB, CKB, TRIG, LDO #### [facility] (DEFAULT) [address] [place] [address] 51469 FLUAV and FLUBV Ag IA.rapid Nom (Unsp spec)Ordered By: Kathleen Blake on 05-15-2024 FLUAV Ag IA.rapid Ql (Nph) Not detected Not Detected [facility] FLUBV Ag IA.rapid Ql (Nph) Not detected Not Detected [facility] Interpretation and review of laboratory results Normal [facility] GLUCOSE POCon 05-15-2024 Glucose [Mass/Vol] 97 mg/dL 70 - 99 mg/dL [facility] POC Sample Type CAPBL [facility] Glucose [Mass/Vol] 105 mg/dL High 70 - 99 mg/dL [facility] Interpretation and review of laboratory results Abnormal [facility] POC Sample Type CAPBL [facility] Glucose [Mass/Vol] 117 mg/dL High 70 - 99 mg/dL [facility] Interpretation and review of laboratory results Abnormal [facility] POC Sample Type CAPBL [facility] INFLUENZA A/B RAPID MOLECULA Josr 05-15-2024 Influenza A, Molecular Not detected Normal Not Detected [facility] Comment on above: Order Comment: This test utilizes isothermal nucleic amplification technology for the differential qualitative detection of influenza A and influenza B viral nucleic acids. Performed By: #### M GO, CHM7, IPB, CKB, TRIG, LDO #### [facility] (DEFAULT) [address] [place] [address] 69358 Influenza B, Molecular Not detected Normal Not Detected [facility] Comment on above: Order Comment: This test utilizes isothermal nucleic amplification technology for the differential qualitative detection of influenza A and influenza B viral nucleic acids. Performed By: #### M GO, CHM7, IPB, CKB, TRIG, LDO #### [facility] (DEFAULT) [address] [place] [address] 50197 MAGNESIUMon 05-15-2024 Magnesium [Mass/Vol] 2 mg/dL 1.6 - 2 .6 mg/dL [facility] Magnesium [Mass/Vol] 2.0 mg/dL Normal 1.6-2.6 [facility] Comment on above: Performed By: #### M GO, CHM7, IPB, CKB, TRIG, LDO #### [facility] (DEFAULT) [address] [place] [address] 13904 No Panel Informationon 05-15 Interpretation and review of laboratory results Normal [facility] PHOSPHATE, INORGANICon 05-15 Phosphate [Mass/Vol] 3.9 mg/dL 2.2 - 4 .6 mg/dL [facility] Phosphorous 3.9 mg/dL Normal 2.2-4.6 [facility] Comment on above: Performed By: #### M GO, CHM7, IPB, CKB, TRIG, LDO #### [facility] (DEFAULT) [address] [place] [address] 23893 SARS-COV-2 RAPIDon SARS-CoV-2 (COVID-19) RNA JEANA+probe Ql (Unsp spec) Not detected Normal NOT DETECTED, INVALID [facility] Comment on above: Order Comment: Use a rhea, foam, polyester, or flocked swab to collect a nasal or nasopharyngeal specimen. After collection, place in a clean, plastic screw cap vial, cap tightly and label with patient information. Transport double bagged in biohazard bag at room temperature. Must be received within 60 minutes of collection. Collection must be done while wearing N-95 mask, eye protection, gown, and gloves. Result Comment: [facility] Negative results do not preclude SARS-CoV-2 infection and should not be used as the sole basis for treatment or other patient management decisions. Optimum specimen types and timing for peak viral levels during infections caused by SARS-CoV-2 has not been determined. The possibility of a false negative result should especially be considered if the patient's recent exposures or clinical presentation suggest that SARS-CoV-2 infection is probable, and diagnostic tests for other causes of illness (e.g., other respiratory illness) are negative. Collection of a new specimen and re-testing may be necessary if the patient is critically ill or clinically deteriorating. This test was performed using isothermal nucleic acid amplification technology for the qualitative detection of SARS-CoV-2 nucleic acid. Performed By: #### M GO, CHM7, IPB, CKB, TRIG, LDO #### [facility] (DEFAULT) [address] [place] [address] SARS-CoV-2 (COVID-19) RNA NA A+probe Ql (Unsp spec)on 05-15-2024 Interpretation and review of laboratory results Normal [facility] SARS-CoV-2 (COVID-19) RdRp gene JEANA+probe Ql (Resp) Not detected NOT DETECTED, INVALID [facility] Bacteria identified Cx Nom ( Bld)on 05-14-2024 Bacteria identified Cx Nom (Unsp spec) NO GROWTH DAY 5 OF 5 [facility] CBC,PLATELETSon 05-14-2024 Erythrocyte distribution width (RBC) [Ratio] 18.1 % High 10.8 - 14.9 % [facility] Hematocrit (Bld) [Volume fraction] 26.4 % Low 34.9 - 44.3 % [facility] Hemoglobin (Bld) [Mass/Vol] 7.8 g/dL Low 11.4 - 15.2 g/dL [facility] Interpretation and review of laboratory results Abnormal [facility] MCH (RBC) [Entitic mass] 30.4 pg 25.9 - 33.9 pg [facility] MCHC (RBC) [Mass/Vol] 29.5 g/dL Low 31.4 - 35.9 g/dL [facility] MCV (RBC) [Entitic vol] 102.7 fL High 79.6 - 97.7 fL [facility] Platelet mean volume (Bld) [Entitic vol] 11.9 fL 8.5 - 12.2 fL [facility] Platelets (Bld) [#/Vol] 374 10*3/uL 150 - 393 K/uL [facility] RBC (Bld) [#/Vol] 2.57 10*6/uL Low [facility] WBC (Bld) [#/Vol] 13.46 10*3/uL High 3.99 - 11.19 K/uL [facility] Hematocrit (Bld) [Volume fraction] 26.4 % Low 34.9-44.3 [facility] Comment on above: Performed By: #### G ASVL #### [facility] (DEFAULT) [address] [place] [address] 41291 Hemoglobin (Bld) [Mass/Vol] 7.8 g/dL Low 11.4-15.2 [facility] Comment on above: Performed By: #### G ASVL #### [facility] (DEFAULT) [address] [place] [address] MCV (RBC) [Entitic vol] 102.7 fL High 79.6-97.7 [facility] Comment on above: Performed By: #### G ASVL #### [facility] (DEFAULT) [address] [place] [address] Mean Cell Hgb 30.4 pg Normal 25.9-33.9 [facility] Comment on above: Performed By: #### G ASVL #### [facility] (DEFAULT) [address] [place] [address] 84857 Mean Cell Hgb Conc 29.5 g/dL Low 31.4-35.9 [facility] Comment on above: Performed By: #### G ASVL #### [facility] (DEFAULT) [address] [place] [address] 86964 Platelet mean volume (Bld) [Entitic vol] 11.9 fL Normal 8.5-12.2 [facility] Comment on above: Performed By: #### G ASVL #### [facility] (DEFAULT) [address] [address] Platelets (Bld) [#/Vol] 374 10*3/uL Normal 150-393 [facility] Comment on above: Performed By: #### G ASVL #### [facility] (DEFAULT) [address] [place] [address] 44747 RBC (Bld) [#/Vol] 2.57 10*6/uL Low 3.91-5.04 [facility] Comment on above: Performed By: #### G ASVL #### [facility] (DEFAULT) [address] [address] RBC Distribution 18.1 % High 10.8-14.9 [facility] Comment on above: Performed By: #### G ASVL #### [facility] (DEFAULT) [address] [place] [address] 47003 WBC (Bld) [#/Vol] 13.46 10*3/uL High 3.99-11.19 [facility] Comment on above: Performed By: #### G ASVL #### [facility] (DEFAULT) [address] [address] CHEM 7 (LYTES,BUN,CREA,GLUC) on 05-14-2024 Anion gap [Moles/Vol] 14 mmol/L 7 - 17 mmol/L [facility] Chloride [Moles/Vol] 103 mmol/L 98 - 10 8 mmol/L [facility] CO2 [Moles/Vol] 26 mmol/L 21 - 31 mmol/L [facility] Creatinine [Mass/Vol] 1.7 mg/dL High 0.50 - 1.20 mg/dL [facility] eGFR, CKD-EPI, Female 30 Low - PINF [facility] Glucose [Mass/Vol] 100 mg/dL High 70 - 99 mg/dL [facility] Interpretation and review of laboratory results Abnormal [facility] Osmolality Calc [Osmolality] 307 High [facility] Potassium [Moles/Vol] 4.6 mmol/L 3.5 - 5.0 mmol/L [facility] Sodium [Moles/Vol] 138 mmol/L 135 - 145 mmol/L [facility] Urea nitrogen [Mass/Vol] 60 mg/dL High 7 - 25 mg/dL [facility] Urea nitrogen/Creatinine [Mass ratio] 35 mg/mg [facility] Anion gap [Moles/Vol] 14 mmol/L Normal 7-17 [facility] Comment on above: Performed By: #### G ASVL #### [facility] (DEFAULT) [address] [place] [address] Chloride [Moles/Vol] 103 mmol/L Normal 98-108 [facility] Comment on above: Performed By: #### G ASVL #### [facility] (DEFAULT) [address] [place] [address] CO2 [Moles/Vol] 26 mmol/L Normal 21-31 [facility] Comment on above: Performed By: #### G ASVL #### [facility] (DEFAULT) [address] [place] [address] Creatinine [Mass/Vol] 1.70 mg/dL High 0.50-1.20 [facility] Comment on above: Performed By: #### G ASVL #### [facility] (DEFAULT) [address] [place] [address]47 GFR/1.73 sq M.predicted among non-blacks MDRD (S/P/Bld) [Vol rate/Area] 30 mL/min/{1.73_m2} Low >=60 [facility] Comment on above: Result Comment: Repo rted eGFR is based on the CKD-EPI 2020 equation using creatinine, age, and sex. Performed By: #### G ASVL #### [facility] (DEFAULT) [address] [place] [address] Glucose [Mass/Vol] 100 mg/dL High 70-99 [facility] Comment on above: Performed By: #### G ASVL #### [facility] (DEFAULT) [address] [address] Osmolality [Osmolality] 307 mosm/kg High 278-305 [facility] Comment on above: Performed By: #### G ASVL #### [facility] (DEFAULT) [address] [place] [address] Potassium [Moles/Vol] 4.6 mmol/L Normal 3.5-5.0 [facility] Comment on above: Performed By: #### G ASVL #### [facility] (DEFAULT) [address] [address] Sodium [Moles/Vol] 138 mmol/L Normal 135-145 [facility] Comment on above: Performed By: #### G ASVL #### [facility] (DEFAULT) [address] [address] Urea nitrogen [Mass/Vol] 60 mg/dL High 7-25 [facility] Comment on above: Performed By: #### G ASVL #### [facility] (DEFAULT) [address] [place] [address] Urea nitrogen/Creatinine [Mass ratio] 35 mg/mg Normal [facility] Comment on above: Performed By: #### G ASVL #### [facility] (DEFAULT) [address] [place] [address] ECGon 05-14-2024 [facility] ECGOrdered By: Agustina bonilla on 05-14-2024 [facility] Work Phone: GLUCOSE POCon 05-14-2024 Glucose [Mass/Vol] 112 mg/dL High 70 - 99 mg/dL [facility] Interpretation and review of laboratory results Abnormal [facility] POC Sample Type CAPBL [facility] Glucose [Mass/Vol] 109 mg/dL High 70 - 99 mg/dL [facility] Interpretation and review of laboratory results Abnormal [facility] POC Sample Type CAPBL [facility] Glucose [Mass/Vol] 100 mg/dL High 70 - 99 mg/dL [facility] Interpretation and review of laboratory results Abnormal [facility] POC Sample Type CAPBL [facility] MAGNESIUMon 05-14-2024 Magnesium [Mass/Vol] 2 mg/dL 1.6 - 2 .6 mg/dL [facility] Magnesium [Mass/Vol] 2.0 mg/dL Normal 1.6-2.6 [facility] Comment on above: Performed By: #### F CRAG #### [facility] (DEFAULT) [address] [address] No Panel Informationon 05-14 Interpretation and review of laboratory results Normal [facility] PHOSPHATE, INORGANICon 05-14 Phosphate [Mass/Vol] 3.8 mg/dL 2.2 - 4 .6 mg/dL [facility] Phosphorous 3.8 mg/dL Normal 2.2-4.6 [facility] Comment on above: Performed By: #### G ASVL #### [facility] (DEFAULT) [address] [place] [address] CBC,PLATELETSon 05-13-2024 Erythrocyte distribution width (RBC) [Ratio] 18.3 % High 10.8 - 14.9 % [facility] Hematocrit (Bld) [Volume fraction] 26.9 % Low 34.9 - 44.3 % [facility] Hemoglobin (Bld) [Mass/Vol] 8 g/dL Low 11.4 - 15.2 g/dL [facility] Interpretation and review of laboratory results Abnormal [facility] MCH (RBC) [Entitic mass] 30.3 pg 25.9 - 33.9 pg [facility] MCHC (RBC) [Mass/Vol] 29.7 g/dL Low 31.4 - 35.9 g/dL [facility] MCV (RBC) [Entitic vol] 101.9 fL High 79.6 - 97.7 fL [facility] Platelet mean volume (Bld) [Entitic vol] 11.9 fL 8.5 - 12.2 fL [facility] Platelets (Bld) [#/Vol] 368 10*3/uL 150 - 393 K/uL [facility] RBC (Bld) [#/Vol] 2.64 10*6/uL Low [facility] WBC (Bld) [#/Vol] 11.5 10*3/uL High 3.99 - 11.19 K/uL [facility] Hematocrit (Bld) [Volume fraction] 26.9 % Low 34.9-44.3 [facility] Comment on above: Performed By: #### G ASVL #### [facility] (DEFAULT) [address] [place] [address] Hemoglobin (Bld) [Mass/Vol] 8.0 g/dL Low 11.4-15.2 [facility] Comment on above: Performed By: #### G ASVL #### [facility] (DEFAULT) [address] [place] [address] MCV (RBC) [Entitic vol] 101.9 fL High 79.6-97.7 [facility] Comment on above: Performed By: #### G ASVL #### [facility] (DEFAULT) [address] [address] Mean Cell Hgb 30.3 pg Normal 25.9-33.9 [facility] Comment on above: Performed By: #### G ASVL #### [facility] (DEFAULT) [address] [address] Mean Cell Hgb Conc 29.7 g/dL Low 31.4-35.9 [facility] Comment on above: Performed By: #### G ASVL #### [facility] (DEFAULT) [address] [address] Platelet mean volume (Bld) [Entitic vol] 11.9 fL Normal 8.5-12.2 [facility] Comment on above: Performed By: #### G ASVL #### [facility] (DEFAULT) [address] [place] [address] Platelets (Bld) [#/Vol] 368 10*3/uL Normal 150-393 [facility] Comment on above: Performed By: #### G ASVL #### [facility] (DEFAULT) [address] [address] RBC (Bld) [#/Vol] 2.64 10*6/uL Low 3.91-5.04 [facility] Comment on above: Performed By: #### G ASVL #### [facility] (DEFAULT) [address] [address] RBC Distribution 18.3 % High 10.8-14.9 [facility] Comment on above: Performed By: #### G ASVL #### [facility] (DEFAULT) [address] [address] WBC (Bld) [#/Vol] 11.50 10*3/uL High 3.99-11.19 [facility] Comment on above: Performed By: #### G ASVL #### [facility] (DEFAULT) [address] [place] [address] CHEM 7 (LYTES,BUN,CREA,GLUC) on 05-13-2024 Anion gap [Moles/Vol] 12 mmol/L 7 - 17 mmol/L [facility] Chloride [Moles/Vol] 104 mmol/L 98 - 10 8 mmol/L [facility] CO2 [Moles/Vol] 31 mmol/L 21 - 31 mmol/L [facility] Creatinine [Mass/Vol] 1.89 mg/dL High 0.50 - 1.20 mg/dL [facility] eGFR, CKD-EPI, Female 26 Low - PINF [facility] Glucose [Mass/Vol] 102 mg/dL High 70 - 99 mg/dL [facility] Interpretation and review of laboratory results Abnormal [facility] Osmolality Calc [Osmolality] 317 High [facility] Potassium [Moles/Vol] 4.4 mmol/L 3.5 - 5.0 mmol/L [facility] Sodium [Moles/Vol] 143 mmol/L 135 - 145 mmol/L [facility] Urea nitrogen [Mass/Vol] 62 mg/dL High 7 - 25 mg/dL [facility] Urea nitrogen/Creatinine [Mass ratio] 33 mg/mg [facility] Anion gap [Moles/Vol] 12 mmol/L Normal 7-17 [facility] Comment on above: Performed By: #### M GO, CHM7, IPB, CKB, TRIG, LDO #### [facility] (DEFAULT) [address] [place] [address] Chloride [Moles/Vol] 104 mmol/L Normal 98-108 [facility] Comment on above: Performed By: #### M GO, CHM7, IPB, CKB, TRIG, LDO #### [facility] (DEFAULT) [address] [place] [address] CO2 [Moles/Vol] 31 mmol/L Normal 21-31 [facility] Comment on above: Performed By: #### M GO, CHM7, IPB, CKB, TRIG, LDO #### [facility] (DEFAULT) [address] [place] [address] Creatinine [Mass/Vol] 1.89 mg/dL High 0.50-1.20 [facility] Comment on above: Performed By: #### M GO, CHM7, IPB, CKB, TRIG, LDO #### [facility] (DEFAULT) [address] [place] [address] GFR/1.73 sq M.predicted among non-blacks MDRD (S/P/Bld) [Vol rate/Area] 26 mL/min/{1.73_m2} Low >=60 [facility] Comment on above: Result Comment: Repo rted eGFR is based on the CKD-EPI 2020 equation using creatinine, age, and sex. Performed By: #### M GO, CHM7, IPB, CKB, TRIG, LDO #### [facility] (DEFAULT) [address] [place] [address] Glucose [Mass/Vol] 102 mg/dL High 70-99 [facility] Comment on above: Performed By: #### M GO, CHM7, IPB, CKB, TRIG, LDO #### [facility] (DEFAULT) [address] [place] [address] Osmolality [Osmolality] 317 mosm/kg High 278-305 [facility] Comment on above: Performed By: #### M GO, CHM7, IPB, CKB, TRIG, LDO #### [facility] (DEFAULT) [address] [place] [address] Potassium [Moles/Vol] 4.4 mmol/L Normal 3.5-5.0 [facility] Comment on above: Performed By: #### M GO, CHM7, IPB, CKB, TRIG, LDO #### [facility] (DEFAULT) [address] [place] [address] Sodium [Moles/Vol] 143 mmol/L Normal 135-145 [facility] Comment on above: Performed By: #### M GO, CHM7, IPB, CKB, TRIG, LDO #### [facility] (DEFAULT) [address] [place] [address] Urea nitrogen [Mass/Vol] 62 mg/dL High 7-25 [facility] Comment on above: Performed By: #### M GO, CHM7, IPB, CKB, TRIG, LDO #### [facility] (DEFAULT) [address] [place] [address] Urea nitrogen/Creatinine [Mass ratio] 33 mg/mg Normal [facility] Comment on above: Performed By: #### M GO, CHM7, IPB, CKB, TRIG, LDO #### [facility] (DEFAULT) [address] [place] [address] ENCEPHALOPATHY, AUTOIMMUNE E VALUATION, CSFon 05-13-2024 AMPAR2 IgG Cell binding assay immunofluorescent assay Ql (CSF) Negative Negative [facility] Amphiphysin Ab IF Ql (CSF) Negative Negative [facility] Annotation comment [Interpretation] Narrative None. [facility] Contactin-associated protein 2 IgG Cell binding assay immunofluorescent assay Ql (CSF) Negative Negative [facility] CV2 Ab IF Ql (CSF) Negative Negative [facility] Dipeptidyl aminopeptidase-like protein 6 IgG Cell binding assay immunofluorescent assay Ql (CSF) Negative Negative [facility] GABABR IgG Cell binding assay immunofluorescent assay Ql (CSF) Negative Negative [facility] Glial fibrillary acidic protein alpha subunit IgG IF Ql (CSF) Negative Negative [facility] Glial nuclear type 1 Ab IF Ql (CSF) Negative Negative [facility] Glutamate decarboxylase 65 IgG+IgM IA (CSF) [Moles/Vol] 0.00 nmol/L NINF - 0.02 nmol/L [facility] IgLON5 CBA, CSF Negative Negative [facility] Engraver Set Up Operator review Janes (Unsp spec) [Interp] SEE COMMENTS [facility] Leucine-rich glioma-inactivated protein 1 IgG Cell binding assay immunofluorescent assay Ql (CSF) Negative Negative [facility] Metabotropic glutamate receptor 1 IgG IF Ql (CSF) Negative Negative [facility] Neurochondrin IFA, CSF Negative Negative [facility] Neuronal nuclear type 1 Ab IF Ql (CSF) Negative Negative [facility] Neuronal nuclear type 2 Ab IF Ql (CSF) Negative Negative [facility] Neuronal nuclear type 3 Ab IF Ql (CSF) Negative Negative [facility] NIF IFA, CSF Negative Negative [facility] NMDAR subunit 1 IgG Cell binding assay immunofluorescent assay Ql (CSF) Negative Negative [facility] DIMENSION WAREHOUSE SUPERVISOR-1 Ab IF Ql (CSF) Negative Negative [facility] DIMENSION WAREHOUSE SUPERVISOR-2 Ab IF Ql (CSF) Negative Negative [facility] DIMENSION WAREHOUSE SUPERVISOR-Tr Ab IF Ql (CSF) Negative Negative [facility] PDE10A AB IFA, CSF Negative Negative [facility] Septin-7 IFA, CSF Negative Negative [facility] Tripartite Motif-Containing Protein 46 IgG IFA, CSF Negative Negative [facility] FLEXIBLE ENDOSCOPIC EVALUATI ON OF SWALLOWINGon 05-13-2024 RADIOLOGY [facility] GLUCOSE POCon 05-13-2024 Glucose [Mass/Vol] 118 mg/dL High 70 - 99 mg/dL [facility] Interpretation and review of laboratory results Abnormal [facility] POC Sample Type CAPBL [facility] Glucose [Mass/Vol] 121 mg/dL High 70 - 99 mg/dL [facility] Interpretation and review of laboratory results Abnormal [facility] POC Sample Type CAPBL [facility] Glucose [Mass/Vol] 107 mg/dL High 70 - 99 mg/dL [facility] Glucose [Mass/Vol] 116 mg/dL High 70 - 99 mg/dL [facility] MAGNESIUMon 05-13-2024 Magnesium [Mass/Vol] 2.2 mg/dL 1.6 - 2 .6 mg/dL [facility] Magnesium [Mass/Vol] 2.2 mg/dL Normal 1.6-2.6 [facility] Comment on above: Performed By: #### M ROXY TELLO, IPB, CKB, TRIG, LDO #### [facility] (DEFAULT) [address] [place] [id number] No Panel Informationon 05-13 Interpretation and review of laboratory results Abnormal [facility] POC Sample Type CAPBL [facility] Interpretation and review of laboratory results Normal [facility] PHOSPHATE, INORGANICon 05-13 Phosphate [Mass/Vol] 3.4 mg/dL 2.2 - 4 .6 mg/dL [facility] Phosphorous 3.4 mg/dL Normal 2.2-4.6 [facility] Comment on above: Performed By: #### M ROXY TELLO, IPB, CKB, TRIG, LDO #### [facility] (DEFAULT) [address] [place] [address] CALCIUMon 05-12-2024 Calcium [Mass/Vol] 7.8 mg/dL Low 8.6 - 10. 5 mg/dL [facility] Interpretation and review of laboratory results Abnormal [facility] Calcium [Mass/Vol] 7.8 mg/dL Low 8.6-10.5 [facility] Comment on above: Performed By: #### M ROXY TELLO, IPB, CKB, TRIG, LDO #### [facility] (DEFAULT) [address] [place] [address] CBC,PLATELETSon 05-12-2024 Erythrocyte distribution width (RBC) [Ratio] 18.5 % High 10.8 - 14.9 % [facility] Hematocrit (Bld) [Volume fraction] 26.9 % Low 34.9 - 44.3 % [facility] Hemoglobin (Bld) [Mass/Vol] 7.9 g/dL Low 11.4 - 15.2 g/dL [facility] Interpretation and review of laboratory results Abnormal [facility] MCH (RBC) [Entitic mass] 30.2 pg 25.9 - 33.9 pg [facility] MCHC (RBC) [Mass/Vol] 29.4 g/dL Low 31.4 - 35.9 g/dL [facility] MCV (RBC) [Entitic vol] 102.7 fL High 79.6 - 97.7 fL [facility] Platelet mean volume (Bld) [Entitic vol] 12 fL 8.5 - 12.2 fL [facility] Platelets (Bld) [#/Vol] 299 10*3/uL 150 - 393 K/uL [facility] RBC (Bld) [#/Vol] 2.62 10*6/uL Low [facility] WBC (Bld) [#/Vol] 11.05 10*3/uL 3.99 - 11.19 K/uL [facility] Hematocrit (Bld) [Volume fraction] 26.9 % Low 34.9-44.3 [facility] Comment on above: Performed By: #### M OMER, CHM7, IPB, CKB, TRIG, LDO #### [facility] (DEFAULT) [address] [address] Hemoglobin (Bld) [Mass/Vol] 7.9 g/dL Low 11.4-15.2 [facility] Comment on above: Performed By: #### M OMER, CHM7, IPB, CKB, TRIG, LDO #### [facility] (DEFAULT) [address] [address] MCV (RBC) [Entitic vol] 102.7 fL High 79.6-97.7 [facility] Comment on above: Performed By: #### M GO, CHM7, IPB, CKB, TRIG, LDO #### [facility] (DEFAULT) [address] [place] [phone] Mean Cell Hgb 30.2 pg Normal 25.9-33.9 [facility] Comment on above: Performed By: #### M GO, CHM7, IPB, CKB, TRIG, LDO #### [facility] (DEFAULT) [address] [place] [address] Mean Cell Hgb Conc 29.4 g/dL Low 31.4-35.9 [facility] Comment on above: Performed By: #### M GO, CHM7, IPB, CKB, TRIG, LDO #### [facility] (DEFAULT) [address] [place] [address] Platelet mean volume (Bld) [Entitic vol] 12.0 fL Normal 8.5-12.2 [facility] Comment on above: Performed By: #### M GO, CHM7, IPB, CKB, TRIG, LDO #### [facility] (DEFAULT) [address] [place] [address] Platelets (Bld) [#/Vol] 299 10*3/uL Normal 150-393 [facility] Comment on above: Performed By: #### M GO, CHM7, IPB, CKB, TRIG, LDO #### [facility] (DEFAULT) [address] [place] [address] RBC (Bld) [#/Vol] 2.62 10*6/uL Low 3.91-5.04 [facility] Comment on above: Performed By: #### M GO, CHM7, IPB, CKB, TRIG, LDO #### [facility] (DEFAULT) [address] [place] [address] RBC Distribution 18.5 % High 10.8-14.9 [facility] Comment on above: Performed By: #### M GO, CHM7, IPB, CKB, TRIG, LDO #### [facility] (DEFAULT) [address] [place] [address] WBC (Bld) [#/Vol] 11.05 10*3/uL Normal 3.99-11.19 [facility] Comment on above: Performed By: #### M OMER, CHM7, IPB, CKB, TRIG, LDO #### [facility] (DEFAULT) [address] [place] [address] CHEM 7 (LYTES,BUN,CREA,GLUC) Ordered By: Michael Jiménez on 05-12-2024 Anion gap [Moles/Vol] 13 mmol/L 7 - 17 mmol/L [facility] Chloride [Moles/Vol] 103 mmol/L 98 - 10 8 mmol/L [facility] CO2 [Moles/Vol] 31 mmol/L 21 - 31 mmol/L [facility] Creatinine [Mass/Vol] 2.19 mg/dL High 0.50 - 1.20 mg/dL [facility] eGFR, CKD-EPI, Female 22 Low - PINF [facility] Glucose [Mass/Vol] 96 mg/dL 70 - 99 mg/dL [facility] Interpretation and review of laboratory results Abnormal [facility] Osmolality Calc [Osmolality] 315 High [facility] Potassium [Moles/Vol] 4.6 mmol/L 3.5 - 5.0 mmol/L [facility] Sodium [Moles/Vol] 142 mmol/L 135 - 145 mmol/L [facility] Urea nitrogen [Mass/Vol] 63 mg/dL High 7 - 25 mg/dL [facility] Urea nitrogen/Creatinine [Mass ratio] 29 mg/mg [facility] CHEM 7 (LYTES,BUN,CREA,GLUC) on 05-12-2024 Anion gap [Moles/Vol] 13 mmol/L Normal 7-17 [facility] Comment on above: Performed By: #### M GO, CHM7, IPB, CKB, TRIG, LDO #### [facility] (DEFAULT) [address] [place] [address] Chloride [Moles/Vol] 103 mmol/L Normal 98-108 [facility] Comment on above: Performed By: #### M GO, CHM7, IPB, CKB, TRIG, LDO #### [facility] (DEFAULT) [address] [place] [address] CO2 [Moles/Vol] 31 mmol/L Normal 21-31 [facility] Comment on above: Performed By: #### M GO, CHM7, IPB, CKB, TRIG, LDO #### [facility] (DEFAULT) [address] [place] [address] Creatinine [Mass/Vol] 2.19 mg/dL High 0.50-1.20 [facility] Comment on above: Performed By: #### M GO, CHM7, IPB, CKB, TRIG, LDO #### [facility] (DEFAULT) [address] [place] [address] GFR/1.73 sq M.predicted among non-blacks MDRD (S/P/Bld) [Vol rate/Area] 22 mL/min/{1.73_m2} Low >=60 [facility] Comment on above: Result Comment: Repo rted eGFR is based on the CKD-EPI 2020 equation using creatinine, age, and sex. Performed By: #### M GO, CHM7, IPB, CKB, TRIG, LDO #### [facility] (DEFAULT) [address] [place] [address] Glucose [Mass/Vol] 96 mg/dL Normal 70-99 [facility] Comment on above: Performed By: #### M GO, CHM7, IPB, CKB, TRIG, LDO #### [facility] (DEFAULT) [address] [place] [address] Osmolality [Osmolality] 315 mosm/kg High 278-305 [facility] Comment on above: Performed By: #### M GO, CHM7, IPB, CKB, TRIG, LDO #### [facility] (DEFAULT) [address] [place] [address] Potassium [Moles/Vol] 4.6 mmol/L Normal 3.5-5.0 [facility] Comment on above: Performed By: #### M GO, CHM7, IPB, CKB, TRIG, LDO #### [facility] (DEFAULT) [address] [place] [address] Sodium [Moles/Vol] 142 mmol/L Normal 135-145 [facility] Comment on above: Performed By: #### M GO, CHM7, IPB, CKB, TRIG, LDO #### [facility] (DEFAULT) [address] [place] [address] Urea nitrogen [Mass/Vol] 63 mg/dL High 7-25 [facility] Comment on above: Performed By: #### M GO, CHM7, IPB, CKB, TRIG, LDO #### [facility] (DEFAULT) [address] [place] [address] [id number] Urea nitrogen/Creatinine [Mass ratio] 29 mg/mg Normal [facility] Comment on above: Performed By: #### M GO, CHM7, IPB, CKB, TRIG, LDO #### [facility] (DEFAULT) [address] [place] [address] [id number] Cardiac echo study Procedure Ordered By: Bandar Burt on 05-12-2024 Ao arch index 1.25 cm/m2 [facility] Work Phone: Ao ASC index 1.38 cm/m2 [facility] Work Phone: Ao peak radha 1.47 m/s [facility] Work Phone: Ao SOV index 1.46 cm/m2 [facility] Work Phone: Ao STJ index 1.43 cm/m2 [facility] Work Phone: [phone] Ao VTI 35.06 cm [facility] Work Phone: Aortic arch 2.68 cm [facility] Work Phone: Ascending aorta 2.96 [facility] Work Phone: AV LVOT peak gradient 3 mmHg [facility]: AV mean gradient 5 mmHg [facility]: AV peak gradient 9 mmHG [facility] Work Phone: [phone] AV valve area 2.28 cm2 [facility] Work Phone: AV Velocity Ratio 0.58 [facility] Work Phone: [phone] MAHESH (continuity Vmax) 2.08 cm2 [facility] Work Phone: MAHESH (continuity VTI) 2.28 cm2 [facility] Work Phone: MAHESH index (continuity Vmax) 0.97 m/s [facility] Work Phone: MAHESH index (continuity VTI) 1.07 cm2/m2 [facility] Work Phone: Avg e' pk radha 0.07 m/s [facility] Work Phone: Avg E/e' ratio 9.96 [facility] Work Phone: Body surface area Derived from formula 2.14 m2 [facility] Work Phone: BP EF 55 % [facility] Work Phone: DI (Vmax) 0.58 [facility] Work Phone: DI (VTI) 0.64 m/2 [facility] Work Phone: E wave decelartion time 212.07 msec [facility] Work Phone: e' lateral pk radha 0.0824 m[facility]: e' lateral pk radha 0.08 m/s [facility]: e' septal pk radha 0.0628 m/s [facility] Work Phone: e' septal pk radha 0.06 m/s [facility] Work Phone: E/A ratio 1.15 [facility] Work Phone: E/e' lateral [facility].62 [facility] E/e' septal [facility] 11.31 [facility]: EF SP 2CH 60 [facility] Work Phone: EF SP 4CH 51 [facility] Work Phone: EST RAP 5 mmHg [facility] Work Phone: FS 34 % [facility] Work Phone: IVC ostium 1.87 cm [facility] Work Phone: IVS 0.91 cm [facility] Work Phone: LA area 4CH 28.64 cm2 [facility] Work Phone: LA ESV BP (MOD) 91 mL [facility] Work Phone: LA ESV BP (MOD) index 43 mL/m2 [facility] Work Phone: LA ESV SP 2CH (MOD) 84 mL [facility] Work Phone: LA ESV SP 4CH (MOD) 96 mL [facility] Work Phone: [phone] LV EDV BP 125 mL [facility] Work Phone: [phone] LV EDV SP 2CH 112 mL [facility] Work Phone: [phone] LV EDV SP 4CH 137 mL [facility] Work Phone: LV ESV BP 56 mL [facility] Work Phone: [phone] LV ESV SP 2CH 45 mL [facility] Work Phone: LV ESV SP 4CH 67 mL [facility] Work Phone: LV mass 144.92 g [facility] Work Phone: LV Mass Index 67.7 g/m2 [facility] Work Phone: LV RWT 0.41 [facility] Work Phone: [phone] LV stroke volume BP (ml) 69 mL [facility] Work Phone: LV stroke volume index BP 32.24 mL/m2 [facility] Work Phone: LVIDD 4.64 cm [facility] Work Phone: [phone] LVIDS 3.05 cm [facility] Work Phone: [phone] LVOT area 3.59 cm2 [facility] Work Phone: LVOT diameter 2.14 cm [facility] Work Phone: [phone] LVOT peak radha 0.85 m/s [facility] Work Phone: LVOT peak VTI 22.27 cm [facility] Work Phone: LVOT stroke volume 80 cm3 [facility] Work Phone: LVOT stroke volume index 37.41 ml/m2 [facility] Work Phone: MV pk A radha 0.62 m/s [facility] Work Phone: MV pk E radha 0.71 m/s [facility] Work Phone: OSU AV VTI RATIO PRE STRESS 0.64 [facility] Work Phone: OSU ECHO LV BIPLANE SYSTOLIC VOLUME INDEX 26.17 mL/m2 [facility] Work Phone: OSU ECHO LV BP DIASTOLIC VOLUME INDEX 58.41 mL/m2 [facility] Work Phone: PV mean gradient 3 mmHg [facility] Work Phone: PV peak gradient 5 mmHg [facility] Work Phone: PV PK RADHA 1.17 m/s [facility] Work Phone: PW 0.94 cm [facility] Work Phone: RA area 4CH (MOD) 16.49 cm2 [facility] Work [facility]: RA vol index 4CH (MOD) 18.69 mL/m2 [facility] Work Phone: Right atrium volume 4 chamber method of disks 40 mL [facility] Work Phone: RV Area diastolic 24.16 cm2 [facility] Work Phone: RV Area systolic 12.8 cm2 [facility] Work Phone: RV Fractional area change 47 % [facility] Work Phone: RV S' 20.24 cm/s [facility] Work Phone: RVOT peak gradient 2 mmHg [facility] Work Phone: RVOT peak radha 0.75 m/s [facility] Work Phone: RVOT peak VTI 15.5 cm [facility] Work Phone: Sinus 3.13 cm [facility] Work Phone: STJ 3.05 cm [facility] Work Phone: Stroke Volume 80 cm/mL [facility] Work Phone: Stroke volume [facility]: TAPSE 3.12 cm [facility] Work Phone: [facility] Work Phone: Cardiac echo study Procedure on 05-12-2024 [facility] ECHOCARDIOGRAMon 05-12-2024 Echocardiography Left ventricular siz e and global systolic function are normal, ejection fraction +/-55%. Hypokinesis of the basal inferior/inferolateral segments. Left atrium measures mild to moderately enlarged in size Right ventricle is normal in size and function. Right atrium measures normal in size Valve structures are consistent with age. No valve dysfunction Further study details described below Table formatting from the original result was not included. Images from the original result were not included. Facility [facility] Patient Information Patient Name Mari Lopez Legal Sex Female Indication for Exam Priority: Routine Dx: Heart failure with preserved ejection fraction, unspecified HF chronicity [I50.30 (ICD-10-CM)]; Benign hypertension [I10 (ICD-10-CM)] Order Question Reason for Exam history of HFpEF and run of VT without recent ECHO Interpretation Summary Result History is available. Left ventricular size and global systolic function are normal, ejection fraction +/-55%. Hypokinesis of the basal inferior/inferolateral segments. Left atrium measures mild to moderately enlarged in size Right ventricle is normal in size and function. Right atrium measures normal in size Valve structures are consistent with age. No valve dysfunction Further study details described below Findings Left Ventricle Chamber size is normal. Normal wall thickness. Normal global systolic function. Wall motion abnormality: Mild hypokinesis of the inferior wall. Ejection fraction by modified Cadena's rule is normal. Diastolic function is normal. Right Ventricle Chamber size is normal. Systolic function is normal. Fractional area change equals 47.0%. Left Atrium Chamber size is mildly-moderately enlarged. Right Atrium Chamber size is normal. Septum The atrial septum is normal. Mitral Valve Normal appearing leaflets. Leaflet mobility is normal. Trace regurgitation. No valve stenosis. Aortic Valve Trileaflet valve. Cusp sclerosis visualized. Leaflet mobility is normal. No regurgitation. No stenosis. Tricuspid Valve Normal leaflets. Leaflet mobility is normal. Trace regurgitation. No stenosis. Pulmonary artery systolic pressure (PASP) is unable to be estimated. Pulmonic Valve Normal structure. Trace regurgitation. No stenosis. Aorta No dilation to extent seen. SOV: 3.13 cm. STJ: 3.05 cm. Ascendin.96 cm. Arch: 2.68 cm. Pericardium No pericardial effusion. IVC/SVC The inferior vena cava is normal in size. The inferior vena cava structure has a diameter <21 mm and decreases >50% during inspiration. Reading Providers Reading Role Read Date Bandar Burt DO Echo Dewart 05/12/2024 Wall Scoring Score Index: 1.24 The following segments are hypokinetic: basal inferior, basal inferolateral, mid inferior and mid inferolateral. All other segments are normal. Left Heart Measurements LV - Systole LVIDD 4.64 cm IVS 0.91 cm LVIDS 3.05 cm PW 0.94 cm LV RWT 0.41 LV Mass Index 67.7 g/m2 LV EDV BP 125 mL LV ESV BP 56 mL BP EF 55 % LV stroke volume BP (ml) 69 mL LV stroke volume index BP 32.24 mL/m2 LV - Diastole MV pk E radha 0.71 m/s MV pk A radha 0.62 m/s E/A ratio 1.15 e' septal pk radha 0.06 m/s e' lateral pk radha 0.08 m/s Avg e' pk radha 0.07 m/s E/e' septal ratio 11.31 E/e' lateral ratio 8.62 Avg E/e' ratio 9.96 LV - HCM AV LVOT peak gradient 3 mmHg Left Atrium LA ESV SP 4CH (MOD) 96 mL LA ESV SP 2CH (MOD) 84 mL LA ESV BP (MOD) index 43 mL/m2 Right Heart Measurements RV - 2D RV Area diastolic 24.16 cm2 RV Area systolic 12.8 cm2 RV Fractional area change 47 % RV - Doppler TAPSE 3.12 cm RV S' 20.24 cm/s Right Atrium RA vol index 4CH (MOD) 18.69 mL/m2 EST RAP 5 mmHg RA area 4CH (MOD) 16.49 cm2 Great Vessels Aortic Root - End Diastolic Sinus 3.13 cm STJ 3.05 cm Ascending aorta 2.96 cm Aortic arch 2.68 cm Inferior Vena Cava IVC ostium 1.87 cm Doppler Measurements - Aortic Valve Stenosis LVOT diameter 2.14 cm LVOT area 3.59 cm2 LVOT peak radha 0.85 m/s LVOT peak VTI 22.27 cm Stroke Volume 80 cm/mL Stroke volume index 37 Ao peak radha 1.47 m/s Ao VTI 35.06 cm AV peak gradient 9 mmHG AV mean gradient 5 mmHg DI (VTI) 0.64 m/2 DI (Vmax) 0.58 MAHESH (continuity Vmax) 2.08 cm2 MAHESH index (continuity Vmax) 0.97 m/s MAHESH (continuity VTI) 2.28 cm2 MAHESH index (continuity VTI) 1.07 cm2/m2 LVOT stroke volume 80 cm3 LVOT stroke volume index 37.41 ml/m2 Doppler Measurements - Mitral Valve Stenosis MV pk E radha 0.71 m/s MV pk A radha 0.62 m/s E/A ratio 1.15 PISA-MS MV pk E radha 0.71 m/s Doppler Measurements - Tricuspid Valve Steno (more content not included)... Normal [facility] GLUCOSE POCon 05-12-2024 Glucose [Mass/Vol] 101 mg/dL High 70 - 99 mg/dL [facility] Interpretation and review of laboratory results Abnormal [facility] POC Sample Type CAPBL [facility] Glucose [Mass/Vol] 90 mg/dL 70 - 99 mg/dL [facility] POC Sample Type CAPBL [facility] Glucose [Mass/Vol] 97 mg/dL 70 - 99 mg/dL [facility] POC Sample [facility] Glucose [Mass/Vol] 96 mg/dL 70 - 99 mg/dL [facility] POC Sample Type [facility] LIPID PANEL W CALCULATED LDL on 05-12-2024 Cholesterol [Mass/Vol] 121 mg/dL NINF - 200 mg/dL [facility] Cholesterol in HDL [Mass/Vol] 36 mg/dL Low 40 - PINF mg/dL [facility] Cholesterol in LDL [Mass/Vol] 64 mg/dL 0 - 99 mg/dL [facility] Cholesterol non HDL [Mass/Vol] 85 mg/dL NINF - 130 mg/dL [facility] Cholesterol.total/Chol esterol in HDL [Mass ratio] 3.4 {ratio} NINF - 4.5 [facility] Interpretation and review of laboratory results Abnormal [facility] Triglyceride [Mass/Vol] 103 mg/dL NINF - 150 mg/dL [facility] Calculated LDL Cholesterol 64 mg/dL Normal 0-99 [facility] Comment on above: Result Comment: [<10 0 mg/dL: Optimal] [100-129 mg/dL: Near Optimal] [130-159 mg/dL: Borderline High] [160-189 mg/dL: High] [>189 mg/dL: Very High] Performed By: #### M GO, CHM7, IPB, CKB, TRIG, LDO #### [facility] (DEFAULT) [address] [place] [address] Cholesterol [Mass/Vol] 121 mg/dL Normal <[address] [facility] Comment on above: Result Comment: [<20 0 mg/dL: Desirable] [200-239 mg/dL: Borderline High] [>239 mg/dL: High] Performed By: #### M GO, CHM7, IPB, CKB, TRIG, LDO #### [facility] (DEFAULT) [address] [place] [address] [phone] Cholesterol in HDL [Mass/Vol] 36 mg/dL Low >=40 [facility] Comment on above: Result Comment: [<40 mg/dL: Low (High Risk)] [>59 mg/dL: High (Low Risk)] Performed By: #### M GO, CHM7, IPB, CKB, TRIG, LDO #### [facility] (DEFAULT) [address] [place] [address] 60767 Non HDL Cholesterol 85 mg/dL Normal <130 [facility] Comment on above: Performed By: #### M GO, CHM7, IPB, CKB, TRIG, LDO #### [facility] (DEFAULT) [address] [place] [address] 71440 Total Cholesterol/HDL Ratio 3.4 Normal <4.5 [facility] Comment on above: Performed By: #### M GO, CHM7, IPB, CKB, TRIG, LDO #### [facility] (DEFAULT) [address] [place] [address] 27176 Triglyceride [Mass/Vol] 103 mg/dL Normal <150 [facility] Comment on above: Result Comment: [<15 0 mg/dL: Desirable] [150-199 mg/dL: Borderline] [200-499 mg/dL: High] [>500 mg/dL: Very High] Performed By: #### M GO, CHM7, IPB, CKB, TRIG, LDO #### [facility] (DEFAULT) [address] [place] [address] 37663 MAGNESIUMon 05-12-2024 Magnesium [Mass/Vol] 2.6 mg/dL 1.6 - 2 .6 mg/dL [facility] Magnesium [Mass/Vol] 2.6 mg/dL Normal 1.6-2.6 [facility] Comment on above: Performed By: #### M CHEMO TELLO7, IPB, CKB, TRIG, LDO #### [facility] (DEFAULT) [address] [place] [address] [phone] No Panel Informationon 05-12 [facility] Interpretation and review of laboratory results Normal [facility] PHOSPHATE, INORGANICon 05-12 Phosphate [Mass/Vol] 3.7 mg/dL 2.2 - 4 .6 mg/dL [facility] Phosphorous 3.7 mg/dL Normal 2.2-4.6 [facility] Comment on above: Performed By: #### M ROXY TELLO, IPB, CKB, TRIG, LDO #### [facility] (DEFAULT) [address] [place] [address] CBC,PLATELETSon 05-11-2024 Erythrocyte distribution width (RBC) [Ratio] 18.8 % High 10.8 - 14.9 % [facility] Hematocrit (Bld) [Volume fraction] 27.1 % Low 34.9 - 44.3 % [facility] Hemoglobin (Bld) [Mass/Vol] 8 g/dL Low 11.4 - 15.2 g/dL [facility] Interpretation and review of laboratory results Abnormal [facility] MCH (RBC) [Entitic mass] 30.2 pg 25.9 - 33.9 pg [facility] MCHC (RBC) [Mass/Vol] 29.5 g/dL Low 31.4 - 35.9 g/dL [facility] MCV (RBC) [Entitic vol] 102.3 fL High 79.6 - 97.7 fL [facility] Platelet mean volume (Bld) [Entitic vol] 12.1 fL 8.5 - 12.2 fL [facility] Platelets (Bld) [#/Vol] 198 10*3/uL 150 - 393 K/uL [facility] RBC (Bld) [#/Vol] 2.65 10*6/uL Low [facility] WBC (Bld) [#/Vol] 10.52 10*3/uL 3.99 - 11.19 K/uL [facility] Hematocrit (Bld) [Volume fraction] 27.1 % Low 34.9-44.3 [facility] Comment on above: Performed By: #### M GO, CHM7, IPB, CKB, TRIG, LDO #### [facility] (DEFAULT) [address] [place] [address] 52835 Hemoglobin (Bld) [Mass/Vol] 8.0 g/dL Low 11.4-15.2 [facility] Comment on above: Performed By: #### M GO, CHM7, IPB, CKB, TRIG, LDO #### [facility] (DEFAULT) [address] [place] [address] 98658 MCV (RBC) [Entitic vol] 102.3 fL High 79.6-97.7 [facility] Comment on above: Performed By: #### M GO, CHM7, IPB, CKB, TRIG, LDO #### [facility] (DEFAULT) [address] [place] [address] 43355 Mean Cell Hgb 30.2 pg Normal 25.9-33.9 [facility] Comment on above: Performed By: #### M GO, CHM7, IPB, CKB, TRIG, LDO #### [facility] (DEFAULT) [address] [place] [address] 58876 Mean Cell Hgb Conc 29.5 g/dL Low 31.4-35.9 [facility] Comment on above: Performed By: #### M GO, CHM7, IPB, CKB, TRIG, LDO #### [facility] (DEFAULT) [address] [place] [address] 31328 Platelet mean volume (Bld) [Entitic vol] 12.1 fL Normal 8.5-12.2 [facility] Comment on above: Performed By: #### M GO, CHM7, IPB, CKB, TRIG, LDO #### [facility] (DEFAULT) [address] [place] [address] 43405 Platelets (Bld) [#/Vol] 198 10*3/uL Normal 150-393 [facility] Comment on above: Performed By: #### M GO, CHM7, IPB, CKB, TRIG, LDO #### [facility] (DEFAULT) [address] [place] [address] 92290 RBC (Bld) [#/Vol] 2.65 10*6/uL Low 3.91-5.04 [facility] Comment on above: Performed By: #### M GO, CHM7, IPB, CKB, TRIG, LDO #### [facility] (DEFAULT) [address] [place] [address] 73841 RBC Distribution 18.8 % High 10.8-14.9 [facility] Comment on above: Performed By: #### M GO, CHM7, IPB, CKB, TRIG, LDO #### [facility] (DEFAULT) [address] [place] [address] 62606 WBC (Bld) [#/Vol] 10.52 10*3/uL Normal 3.99-11.19 [facility] Comment on above: Performed By: #### M GO, CHM7, IPB, CKB, TRIG, LDO #### [facility] (DEFAULT) [address] [place] [address] 72825 CHEM 7 (LYTES,BUN,CREA,GLUC) Ordered By: Kvng Hurst on 05-11-2024 Anion gap [Moles/Vol] 12 mmol/L 7 - 17 mmol/L [facility] Chloride [Moles/Vol] 118 mmol/L High 98 - 10 8 mmol/L [facility] CO2 [Moles/Vol] 19 mmol/L Low 21 - 31 mmol/L [facility] Creatinine [Mass/Vol] 1.6 mg/dL High 0.50 - 1.20 mg/dL [facility] eGFR, CKD-EPI, Female 32 Low - PINF [facility] Glucose [Mass/Vol] 64 mg/dL Low 70 - 99 mg/dL [facility] Interpretation and review of laboratory results Abnormal [facility] Osmolality Calc [Osmolality] 309 High [facility] Potassium [Moles/Vol] 2.8 mmol/L Critically low 3.5 - 5.0 mmol/L [facility] Sodium [Moles/Vol] 146 mmol/L High 135 - 145 mmol/L [facility] Urea nitrogen [Mass/Vol] 41 mg/dL High 7 - 25 mg/dL [facility] Urea nitrogen/Creatinine [Mass ratio] 26 mg/mg [facility] CHEM 7 (LYTES,BUN,CREA,GLUC) on 05-11-2024 Anion gap [Moles/Vol] 12 mmol/L Normal 7-17 [facility] Comment on above: Performed By: #### M OMER, CHM7, IPB, CKB, TRIG, LDO #### [facility] (DEFAULT) [address] [place] [address] 31854 Chloride [Moles/Vol] 118 mmol/L High 98-108 [facility] Comment on above: Performed By: #### Dede TELLO, CHM7, IPB, CKB, TRIG, LDO #### [facility] (DEFAULT) [address] [place] [address] CO2 [Moles/Vol] 19 mmol/L Low 21-31 [facility] Comment on above: Performed By: #### M GO, CHM7, IPB, CKB, TRIG, LDO #### [facility] (DEFAULT) [address] [place] [address] Creatinine [Mass/Vol] 1.60 mg/dL High 0.50-1.20 [facility] Comment on above: Performed By: #### M GO, CHM7, IPB, CKB, TRIG, LDO #### [facility] (DEFAULT) [address] [place] [address] 76384 GFR/1.73 sq M.predicted among non-blacks MDRD (S/P/Bld) [Vol rate/Area] 32 mL/min/{1.73_m2} Low >=60 [facility] Comment on above: Result Comment: Repo rted eGFR is based on the CKD-EPI 2020 equation using creatinine, age, and sex. Performed By: #### M GO, CHM7, IPB, CKB, TRIG, LDO #### [facility] (DEFAULT) [address] [place] [address] 25860 Glucose [Mass/Vol] 64 mg/dL Low 70-99 [facility] Comment on above: Performed By: #### M GO, CHM7, IPB, CKB, TRIG, LDO #### [facility] (DEFAULT) [address] [place] [address] 65830 Osmolality [Osmolality] 309 mosm/kg High 278-305 [facility] Comment on above: Performed By: #### M GO, CHM7, IPB, CKB, TRIG, LDO #### [facility] (DEFAULT) [address] [place] [address] 51799 Potassium [Moles/Vol] 2.8 mmol/L Critically low 3.5-5.0 [facility] Comment on above: Performed By: #### M GO, CHM7, IPB, CKB, TRIG, LDO #### [facility] (DEFAULT) [address] [place] [address] 90308 Sodium [Moles/Vol] 146 mmol/L High 135-145 [facility] Comment on above: Performed By: #### M GO, CHM7, IPB, CKB, TRIG, LDO #### [facility] (DEFAULT) [address] [place] [address] 59822 Urea nitrogen [Mass/Vol] 41 mg/dL High 7-25 [facility] Comment on above: Performed By: #### M OMER, CHM7, IPB, CKB, TRIG, LDO #### [facility] (DEFAULT) [address] [place] [address] Urea nitrogen/Creatinine [Mass ratio] 26 mg/mg Normal [facility] Comment on above: Performed By: #### M OMER, CHM7, IPB, CKB, TRIG, LDO #### [facility] (DEFAULT) [address] [place] [address] Cardiac echo study Procedure on 05-11-2024 Radiology Study observation (narrative) [facility] FOLATE, SERUMon 05-11-2024 Folate [Mass/Vol] 19.69 ng/mL 5.38 - PINF ng/mL [facility] Folate 19.69 ng/mL Normal >5.38 [facility] Comment on above: Performed By: #### M OMER, CHM7, IPB, CKB, TRIG, LDO #### [facility] (DEFAULT) [address] [place] [address] GLUCOSE POCon 05-11-2024 Glucose [Mass/Vol] 108 mg/dL High 70 - 99 mg/dL [facility] Interpretation and review of laboratory results Abnormal [facility] POC Sample Type CAPBL [facility] Glucose [Mass/Vol] 89 mg/dL 70 - 99 mg/dL [facility] POC Sample Type CAPBL [facility] MAGNESIUMon 05-11-2024 Interpretation and review of laboratory results Abnormal [facility] Magnesium [Mass/Vol] 1.2 mg/dL Low 1.6 - 2 .6 mg/dL [facility] Magnesium [Mass/Vol] 1.2 mg/dL Low 1.6-2.6 [facility] Comment on above: Performed By: #### M GO, CHM7, IPB, CKB, TRIG, LDO #### [facility] (DEFAULT) [address] [place] [address] No Panel Informationon 05-11 Interpretation and review of laboratory results Normal [facility] PHOSPHATE, INORGANICon 05-11 Phosphate [Mass/Vol] 2.8 mg/dL 2.2 - 4 .6 mg/dL [facility] Phosphorous 2.8 mg/dL Normal 2.2-4.6 [facility] Comment on above: Performed By: #### M GO, CHM7, IPB, CKB, TRIG, LDO #### [facility] (DEFAULT) [address] [place], [place] [id number] Bacteria identified Cx Nom ( Bld)on 05-10-2024 Bacteria identified Cx Nom (Unsp spec) NO GROWTH DAY 5 OF 5 [facility] Bacteria identified Cx Nom (Unsp spec) NO GROWTH DAY 5 OF 5 [facility] Bacteria identified Respirat ory culture Nom (Unsp spec)Ordered By: Michael Mora on 05-10-2024 Bacteria identified Cx Nom (Unsp spec) Growth [facility] Bacteria identified Cx Nom (Unsp spec) Light Growth Common oropharyngeal microbes [facility] Microscopic observation Other stain Nom (Unsp spec) Neutrophils, Heavy [facility] Microscopic observation Other stain Nom (Unsp spec) Contaminating bacteria and epithelials present [facility] Microscopic observation Other stain Nom (Unsp spec) Specimen is of optimum quality [facility] CBC,PLATELETSon 05-10-2024 Erythrocyte distribution width (RBC) [Ratio] 19.2 % High 10.8 - 14.9 % [facility] Hematocrit (Bld) [Volume fraction] 27.9 % Low 34.9 - 44.3 % [facility] Hemoglobin (Bld) [Mass/Vol] 8.4 g/dL Low 11.4 - 15.2 g/dL [facility] Interpretation and review of laboratory results Abnormal [facility] MCH (RBC) [Entitic mass] 30.1 pg 25.9 - 33.9 pg [facility] MCHC (RBC) [Mass/Vol] 30.1 g/dL Low 31.4 - 35.9 g/dL [facility] MCV (RBC) [Entitic vol] 100 fL High 79.6 - 97.7 fL [facility] Platelet mean volume (Bld) [Entitic vol] 12.6 fL High 8.5 - 12.2 fL [facility] Platelets (Bld) [#/Vol] 210 10*3/uL 150 - 393 K/uL [facility] RBC (Bld) [#/Vol] 2.79 10*6/uL Low [facility] WBC (Bld) [#/Vol] 16 10*3/uL High 3.99 - 11.19 K/uL [facility] Hematocrit (Bld) [Volume fraction] 27.9 % Low 34.9-44.3 [facility] Comment on above: Performed By: #### G ASVL #### [facility] (DEFAULT) [address] [address] Hemoglobin (Bld) [Mass/Vol] 8.4 g/dL Low 11.4-15.2 [facility] Comment on above: Performed By: #### G ASVL #### [facility] (DEFAULT) [address] [address] MCV (RBC) [Entitic vol] 100.0 fL High 79.6-97.7 [facility] Comment on above: Performed By: #### G ASVL #### [facility] (DEFAULT) [address] [address] Mean Cell Hgb 30.1 pg Normal 25.9-33.9 [facility] Comment on above: Performed By: #### G ASVL #### [facility] (DEFAULT) [address] [address] Mean Cell Hgb Conc 30.1 g/dL Low 31.4-35.9 [facility] Comment on above: Performed By: #### G ASVL #### [facility] (DEFAULT) [address] [place] [address] Platelet mean volume (Bld) [Entitic vol] 12.6 fL High 8.5-12.2 [facility] Comment on above: Performed By: #### G ASVL #### [facility] (DEFAULT) [address] [place] [address] Platelets (Bld) [#/Vol] 210 10*3/uL Normal 150-393 [facility] Comment on above: Performed By: #### G ASVL #### [facility] (DEFAULT) [address] [place] [address] RBC (Bld) [#/Vol] 2.79 10*6/uL Low 3.91-5.04 [facility] Comment on above: Performed By: #### G ASVL #### [facility] (DEFAULT) [address] [place] [address] 19304 RBC Distribution 19.2 % High 10.8-14.9 [facility] Comment on above: Performed By: #### G ASVL #### [facility] (DEFAULT) [address] [place] [address] WBC (Bld) [#/Vol] 16.00 10*3/uL High 3.99-11.19 [facility] Comment on above: Performed By: #### G ASVL #### [facility] (DEFAULT) [address] [place] [address] Erythrocyte distribution width (RBC) [Ratio] 19.2 % High 10.8 - 14.9 % [facility] Hematocrit (Bld) [Volume fraction] 26.4 % Low 34.9 - 44.3 % [facility] Hemoglobin (Bld) [Mass/Vol] 7.9 g/dL Low 11.4 - 15.2 g/dL [facility] Interpretation and review of laboratory results Abnormal [facility] MCH (RBC) [Entitic mass] 30.3 pg 25.9 - 33.9 pg [facility] MCHC (RBC) [Mass/Vol] 29.9 g/dL Low 31.4 - 35.9 g/dL [facility] MCV (RBC) [Entitic vol] 101.1 fL High 79.6 - 97.7 fL [facility] Platelet mean volume (Bld) [Entitic vol] 12.6 fL High 8.5 - 12.2 fL [facility] Platelets (Bld) [#/Vol] 161 10*3/uL 150 - 393 K/uL [facility] RBC (Bld) [#/Vol] 2.61 10*6/uL Low [facility] WBC (Bld) [#/Vol] 18.44 10*3/uL High 3.99 - 11.19 K/uL [facility] CHEM 7 (LYTES,BUN,CREA,GLUC) on 05-10-2024 Anion gap [Moles/Vol] 14 mmol/L 7 - 17 mmol/L [facility] Chloride [Moles/Vol] 105 mmol/L 98 - 10 8 mmol/L [facility] CO2 [Moles/Vol] 27 mmol/L 21 - 31 mmol/L [facility] Creatinine [Mass/Vol] 2.5 mg/dL High 0.50 - 1.20 mg/dL [facility] eGFR, CKD-EPI, Female 19 Low - PINF [facility] Glucose [Mass/Vol] 106 mg/dL High 70 - 99 mg/dL [facility] Interpretation and review of laboratory results Abnormal [facility] Osmolality Calc [Osmolality] 309 High [facility] Potassium [Moles/Vol] 4 mmol/L 3.5 - 5.0 mmol/L [facility] Sodium [Moles/Vol] 142 mmol/L 135 - 145 mmol/L [facility] Urea nitrogen [Mass/Vol] 48 mg/dL High 7 - 25 mg/dL [facility] Urea nitrogen/Creatinine [Mass ratio] 19 mg/mg [facility] CONTINUOUS CARDIAC MONITORIN G STRIPon 05-10-2024 [facility] FERRITINon 05-10-2024 Ferritin [Mass/Vol] 634.7 ng/mL High 7.3 - 270.7 ng/mL [facility] Interpretation and review of laboratory results Abnormal [facility] GLUCOSE POCon 05-10-2024 Glucose [Mass/Vol] 145 mg/dL High 70 - 99 mg/dL [facility] Glucose [Mass/Vol] 134 mg/dL High 70 - 99 mg/dL [facility] Glucose [Mass/Vol] 94 mg/dL 70 - 99 mg/dL [facility] IONIZED CALCIUM, WHOLE BLOOD Ordered By: Cecil Guillen on 05-10-2024 Calcium.ionized (Bld) [Moles/Vol] 4.07 mg/dL Low 4.60 - 5.30 mg/dL [facility] Interpretation and review of laboratory results Abnormal [facility] IRON/IRON BINDING/TRANSFERRI Non 05-10-2024 Interpretation and review of laboratory results Abnormal [facility] Iron [Mass/Vol] 68 ug/dL [facility] Iron binding capacity [Mass/Vol] 140 Low [facility] Iron saturation [Mass fraction] 49 % 20 - 55 % [facility] Transferrin [Mass/Vol] 112 mg/dL Low 200 - 400 mg/dL [facility] MAGNESIUMon 05-10-2024 Magnesium [Mass/Vol] 2 mg/dL 1.6 - 2 .6 mg/dL [facility] No Panel Informationon 05-10 Interpretation and review of laboratory results Abnormal [facility] POC Sample Type CAPBL [facility] Interpretation and review of laboratory results Normal [facility] PHOSPHATE, INORGANICon 05-10 Phosphate [Mass/Vol] 3.7 mg/dL 2.2 - 4 .6 mg/dL [facility] VITAMIN B12on 05-10-2024 Cobalamin (Vitamin B12) [Mass/Vol] 1322 pg/mL High 211 - 911 pg/mL [facility] Interpretation and review of laboratory results Abnormal [facility] BLOOD CULTUREon 05-09-2024 Bacteria identified Cx Nom (Unsp spec) NO GROWTH DAY 5 OF 5 Normal [facility] Comment on above: Order Comment: 2 Bot tles (1 Set - consists of 1 Aerobic bottle and 1 Anaerobic bottle) -1st Peripheral DrawFor vacutainer method draw: Fill aerobic bottle first, then anaerobic Performed By: #### M RITA TELLOM7, IPB, CKB, TRIG, LDO #### [facility] (DEFAULT) [address] [address] C DIFFICILE TWO STEPOrdered By: Viri Auguste on 05-09-2024 C. difficile DNA JEANA+probe Ql (Unsp spec) Negative Negative [facility] Interpretation and review of laboratory results Normal [facility] CBC,PLATELETSon 05-09-2024 Hematocrit (Bld) [Volume fraction] 26.4 % Low 34.9-44.3 [facility] Comment on above: Performed By: #### Dede TELLO CHMMarleny, IPB, CKB, TRIG, LDO #### [facility] (DEFAULT) [address] [place] [address] Hemoglobin (Bld) [Mass/Vol] 7.9 g/dL Low 11.4-15.2 [facility] Comment on above: Performed By: #### Dede TELLO CHM7, IPB, CKB, TRIG, LDO #### [facility] (DEFAULT) [address] [address] MCV (RBC) [Entitic vol] 101.1 fL High 79.6-97.7 [facility] Comment on above: Performed By: #### M RITA TELLOM7, IPB, CKB, TRIG, LDO #### [facility] (DEFAULT) [address] [place] [address] Mean Cell Hgb 30.3 pg Normal 25.9-33.9 [facility] Comment on above: Performed By: #### M GO, CHM7, IPB, CKB, TRIG, LDO #### [facility] (DEFAULT) [address] [place] [address] Mean Cell Hgb Conc 29.9 g/dL Low 31.4-35.9 [facility] Comment on above: Performed By: #### M GO, CHM7, IPB, CKB, TRIG, LDO #### [facility] (DEFAULT) [address] [place] [address] Platelet mean volume (Bld) [Entitic vol] 12.6 fL High 8.5-12.2 [facility] Comment on above: Performed By: #### M GO, CHM7, IPB, CKB, TRIG, LDO #### [facility] (DEFAULT) [address] [place] [address] Platelets (Bld) [#/Vol] 161 10*3/uL Normal 150-393 [facility] Comment on above: Performed By: #### M GO, CHM7, IPB, CKB, TRIG, LDO #### [facility] (DEFAULT) [address] [place] [address] RBC (Bld) [#/Vol] 2.61 10*6/uL Low 3.91-5.04 [facility] Comment on above: Performed By: #### M GO, CHM7, IPB, CKB, TRIG, LDO #### [facility] (DEFAULT) [address] [place] [address] RBC Distribution 19.2 % High 10.8-14.9 [facility] Comment on above: Performed By: #### M GO, CHM7, IPB, CKB, TRIG, LDO #### [facility] (DEFAULT) [address] [place] [address] WBC (Bld) [#/Vol] 18.44 10*3/uL High 3.99-11.19 [facility] Comment on above: Performed By: #### M GO, CHM7, IPB, CKB, TRIG, LDO #### [facility] (DEFAULT) [address] [place] [address] Erythrocyte distribution width (RBC) [Ratio] 19.2 % High 10.8 - 14.9 % [facility] Hematocrit (Bld) [Volume fraction] 28.1 % Low 34.9 - 44.3 % [facility] Hemoglobin (Bld) [Mass/Vol] 8.8 g/dL Low 11.4 - 15.2 g/dL [facility] Interpretation and review of laboratory results Abnormal [facility] MCH (RBC) [Entitic mass] 30.6 pg 25.9 - 33.9 pg [facility] MCHC (RBC) [Mass/Vol] 31.3 g/dL Low 31.4 - 35.9 g/dL [facility] MCV (RBC) [Entitic vol] 97.6 fL 79.6 - 97.7 fL [facility] Platelet mean volume (Bld) [Entitic vol] [facility] Platelets (Bld) [#/Vol] 118 10*3/uL Low 150 - 393 K/uL [facility] RBC (Bld) [#/Vol] 2.88 10*6/uL Low [facility] WBC (Bld) [#/Vol] 16.92 10*3/uL High 3.99 - 11.19 K/uL [facility] Hematocrit (Bld) [Volume fraction] 28.1 % Low 34.9-44.3 [facility] Comment on above: Performed By: #### R ES #### [facility] (DEFAULT) [address] [place] [address] Hemoglobin (Bld) [Mass/Vol] 8.8 g/dL Low 11.4-15.2 [facility] Comment on above: Performed By: #### R ES #### [facility] (DEFAULT) [address] [address] MCV (RBC) [Entitic vol] 97.6 fL Normal 79.6-97.7 [facility] Comment on above: Performed By: #### R ES #### [facility] (DEFAULT) [address] [address] Mean Cell Hgb 30.6 pg Normal 25.9-33.9 [facility] Comment on above: Performed By: #### R ES #### [facility] (DEFAULT) [address] [address] Mean Cell Hgb Conc 31.3 g/dL Low 31.4-35.9 [facility] Comment on above: Performed By: #### R ES #### [facility] (DEFAULT) [address] [address] Mean Platelet Volume Normal [facility] Comment on above: Result Comment: Not measured Performed By: #### R ES #### [facility] (DEFAULT) [address] [address] Platelets (Bld) [#/Vol] 118 10*3/uL Low 150-393 [facility] Comment on above: Performed By: #### R ES #### [facility] (DEFAULT) [address] [address] RBC (Bld) [#/Vol] 2.88 10*6/uL Low 3.91-5.04 [facility] Comment on above: Performed By: #### R ES #### [facility] (DEFAULT) [address] [address] RBC Distribution 19.2 % High 10.8-14.9 [facility] Comment on above: Performed By: #### R ES #### [facility] (DEFAULT) [address] [place] [address] WBC (Bld) [#/Vol] 16.92 10*3/uL High 3.99-11.19 [facility] Comment on above: Performed By: #### R ES #### [facility] (DEFAULT) [address] [place] [address] CHEM 7 (LYTES,BUN,CREA,GLUC) on 05-09-2024 Anion gap [Moles/Vol] 14 mmol/L Normal 7-17 [facility] Comment on above: Performed By: #### M GO, CHM7, IPB, CKB, TRIG, LDO #### [facility] (DEFAULT) [address] [place] [address] Chloride [Moles/Vol] 105 mmol/L Normal 98-108 [facility] Comment on above: Performed By: #### M GO, CHM7, IPB, CKB, TRIG, LDO #### [facility] (DEFAULT) [address] [place] [address] CO2 [Moles/Vol] 27 mmol/L Normal 21-31 [facility] Comment on above: Performed By: #### M GO, CHM7, IPB, CKB, TRIG, LDO #### [facility] (DEFAULT) [address] [place] [address] Creatinine [Mass/Vol] 2.50 mg/dL High 0.50-1.20 [facility] Comment on above: Performed By: #### M GO, CHM7, IPB, CKB, TRIG, LDO #### [facility] (DEFAULT) [address] [place] [address] GFR/1.73 sq M.predicted among non-blacks MDRD (S/P/Bld) [Vol rate/Area] 19 mL/min/{1.73_m2} Low >=60 [facility] Comment on above: Result Comment: Repo rted eGFR is based on the CKD-EPI 2020 equation using creatinine, age, and sex. Performed By: #### M GO, CHM7, IPB, CKB, TRIG, LDO #### [facility] (DEFAULT) [address] [place] [address] Glucose [Mass/Vol] 106 mg/dL High 70-99 [facility] Comment on above: Performed By: #### M GO, CHM7, IPB, CKB, TRIG, LDO #### [facility] (DEFAULT) [address] [place] [address] Osmolality [Osmolality] 309 mosm/kg High 278-305 [facility] Comment on above: Performed By: #### M GO, CHM7, IPB, CKB, TRIG, LDO #### [facility] (DEFAULT) [address] [place] [address] Potassium [Moles/Vol] 4.0 mmol/L Normal 3.5-5.0 [facility] Comment on above: Performed By: #### M GO, CHM7, IPB, CKB, TRIG, LDO #### [facility] (DEFAULT) [address] [place] [address] Sodium [Moles/Vol] 142 mmol/L Normal 135-145 [facility] Comment on above: Performed By: #### M GO, CHM7, IPB, CKB, TRIG, LDO #### [facility] (DEFAULT) [address] [place] [address] Urea nitrogen [Mass/Vol] 48 mg/dL High 7-25 [facility] Comment on above: Performed By: #### M GO, CHM7, IPB, CKB, TRIG, LDO #### [facility] (DEFAULT) [address] [place] [address] Urea nitrogen/Creatinine [Mass ratio] 19 mg/mg Normal [facility] Comment on above: Performed By: #### M GO, CHM7, IPB, CKB, TRIG, LDO #### [facility] (DEFAULT) [address] [place] [address] Anion gap [Moles/Vol] 13 mmol/L 7 - 17 mmol/L [facility] Chloride [Moles/Vol] 104 mmol/L 98 - 10 8 mmol/L [facility] CO2 [Moles/Vol] 27 mmol/L 21 - 31 mmol/L [facility] Creatinine [Mass/Vol] 2.66 mg/dL High 0.50 - 1.20 mg/dL [facility] eGFR, CKD-EPI, Female 17 Low - PINF [facility] Glucose [Mass/Vol] 139 mg/dL High 70 - 99 mg/dL [facility] Interpretation and review of laboratory results Abnormal [facility] Osmolality Calc [Osmolality] 303 [facility] Potassium [Moles/Vol] 4.1 mmol/L 3.5 - 5.0 mmol/L [facility] Sodium [Moles/Vol] 140 mmol/L 135 - 145 mmol/L [facility] Urea nitrogen [Mass/Vol] 35 mg/dL High 7 - 25 mg/dL [facility] Urea nitrogen/Creatinine [Mass ratio] 13 mg/mg [facility] Anion gap [Moles/Vol] 13 mmol/L Normal 7-17 [facility] Comment on above: Performed By: #### M GO, CHM7, IPB, CKB, TRIG, LDO #### [facility] (DEFAULT) [address] [place] [address] Chloride [Moles/Vol] 104 mmol/L Normal 98-108 [facility] Comment on above: Performed By: #### M GO, CHM7, IPB, CKB, TRIG, LDO #### [facility] (DEFAULT) [address] [place] [address] CO2 [Moles/Vol] 27 mmol/L Normal 21-31 [facility] Comment on above: Performed By: #### M GO, CHM7, IPB, CKB, TRIG, LDO #### [facility] (DEFAULT) [address] [place] [address] Creatinine [Mass/Vol] 2.66 mg/dL High 0.50-1.20 [facility] Comment on above: Performed By: #### M GO, CHM7, IPB, CKB, TRIG, LDO #### [facility] (DEFAULT) [address] [place] [address] GFR/1.73 sq M.predicted among non-blacks MDRD (S/P/Bld) [Vol rate/Area] 17 mL/min/{1.73_m2} Low >=60 [facility] Comment on above: Result Comment: Repo rted eGFR is based on the CKD-EPI 2020 equation using creatinine, age, and sex. Performed By: #### M GO, CHM7, IPB, CKB, TRIG, LDO #### [facility] (DEFAULT) [address] [place] [address] Glucose [Mass/Vol] 139 mg/dL High 70-99 [facility] Comment on above: Performed By: #### M GO, CHM7, IPB, CKB, TRIG, LDO #### [facility] (DEFAULT) [address] [place] [address] Osmolality [Osmolality] 303 mosm/kg Normal 278-305 [facility] Comment on above: Performed By: #### M GO, CHM7, IPB, CKB, TRIG, LDO #### [facility] (DEFAULT) [address] [place] [address] Potassium [Moles/Vol] 4.1 mmol/L Normal 3.5-5.0 [facility] Comment on above: Performed By: #### M GO, CHM7, IPB, CKB, TRIG, LDO #### [facility] (DEFAULT) [address] [place] [address] Sodium [Moles/Vol] 140 mmol/L Normal 135-145 [facility] Comment on above: Performed By: #### M GO, CHM7, IPB, CKB, TRIG, LDO #### [facility] (DEFAULT) [address] [place] [address] Urea nitrogen [Mass/Vol] 35 mg/dL High 7-25 [facility] Comment on above: Performed By: #### M GO, CHM7, IPB, CKB, TRIG, LDO #### [facility] (DEFAULT) [address] [place] [address] Urea nitrogen/Creatinine [Mass ratio] 13 mg/mg Normal [facility] Comment on above: Performed By: #### M GO, CHM7, IPB, CKB, TRIG, LDO #### [facility] (DEFAULT) [address] [place] [address] EXTRA MICROon 05-09-2024 [facility] FERRITINon 05-09-2024 Ferritin [Mass/Vol] 634.7 ng/mL High 7.3-270.7 [facility] Comment on above: Performed By: #### M GO, CHM7, IPB, CKB, TRIG, LDO #### [facility] (DEFAULT) [address] [place] [address] GENERAL PROCEDUREon 05-09-19 25 [facility] GENERAL PROCEDUREOrdered By: Mulugeta Barker on 05-09-2024 [facility] Work Phone: GLUCOSE POCon 05-09-2024 Glucose [Mass/Vol] 109 mg/dL High 70 - 99 mg/dL [facility] Glucose [Mass/Vol] 118 mg/dL High 70 - 99 mg/dL [facility] Glucose [Mass/Vol] 144 mg/dL High 70 - 99 mg/dL [facility] Glucose [Mass/Vol] 164 mg/dL High 70 - 99 mg/dL [facility] IONIZED CALCIUM, WHOLE BLOOD on 05-09-2024 ICA 4.07 mg/dL Low 4.60-5.30 [facility] Comment on above: Order Comment: If io nized calcium is less than or equal to 3.0 mg/dL, recheck ionized calcium 2 hours after replacement. Performed By: #### M GO, CHM7, IPB, CKB, TRIG, LDO #### [facility] (DEFAULT) [address] [place] [address] ICA 4.38 mg/dL Low 4.60-5.30 [facility] Comment on above: Order Comment: If io nized calcium is less than or equal to 3.0 mg/dL, recheck ionized calcium 2 hours after replacement. Performed By: #### M GO, CHM7, IPB, CKB, TRIG, LDO #### [facility] (DEFAULT) [address] [place] [address] IONIZED CALCIUM, WHOLE BLOOD Ordered By: Diana Roblero on 05-09-2024 Calcium.ionized (Bld) [Moles/Vol] 4.38 mg/dL Low 4.60 - 5.30 mg/dL [facility] Center Interpretation and review of laboratory results Abnormal [facility] IRON/IRON BINDING/TRANSFERRI Non 05-09-2024 Iron [Mass/Vol] 68 ug/dL Normal 40-174 [facility] Comment on above: Performed By: #### M GO, CHM7, IPB, CKB, TRIG, LDO #### [facility] (DEFAULT) [address] [place] [address] 89683 Iron Saturation 49 % Normal 20-55 [facility] Comment on above: Performed By: #### M GO, CHM7, IPB, CKB, TRIG, LDO #### [facility] (DEFAULT) [address] [place] [address] 79221 Total Iron Binding Capacity 140 mcg/dL Low 250-425 [facility] Comment on above: Performed By: #### M GO, CHM7, IPB, CKB, TRIG, LDO #### [facility] (DEFAULT) [address] [place] [address]12 Transferrin [Mass/Vol] 112 mg/dL Low 200-[address] [facility] Comment on above: Performed By: #### M GO, CHM7, IPB, CKB, TRIG, LDO #### [facility] (DEFAULT) [address] [place] [address] MAGNESIUMon 05-09-2024 Magnesium [Mass/Vol] 2.0 mg/dL Normal 1.6-2.6 [facility] Comment on above: Performed By: #### M GO, CHM7, IPB, CKB, TRIG, LDO #### [facility] (DEFAULT) [address] [place] [address] Magnesium [Mass/Vol] 2 mg/dL 1.6 - 2 .6 mg/dL [facility] Magnesium [Mass/Vol] 2.0 mg/dL Normal 1.6-2.6 [facility] Comment on above: Performed By: #### M GO, CHM7, IPB, CKB, TRIG, LDO #### [facility] (DEFAULT) [address] [place] [address] 49936 MR Cervical spine WO and W c ontrast Brittani 05-09-2024 RADIOLOGY RADIOLOGY [facility] Radiology Study observation (narrative) [facility] MRI SPINE CERVICAL WITH AND WITHOUT CONTRASTon 05-09-2024 MRI SPINE CERVICAL WITH AND WITHOUT CONTRAST EXAM: MRI SPINE CERVICAL WITH AND WITHOUT CONTRAST, 05/09/2024 00:56 AM COMPARISON: No priors available for comparison. CLINICAL INDICATIONS: 83 years Female weak in allextremities,upgoing toes RELEVANT CLINICAL HISTORY: TECHNIQUE: A series of sagittal and axial multisequence images of the cervical spine were obtained both before and after intravenous administration of gadolinium-based contrast using standard protocol. CONTRAST: Gadopiclenol SOLN 1-25 mL; Route of Administration: Intravenous; Dose: 11.3 mL. FINDINGS: Evaluation significantly degraded by motion. The craniocervical junction is unremarkable. Vertebral body heights are maintained. There is straightening of the cervical lordosis without significant listhesis (greater than 3 mm). Multilevel loss of intervertebral disc height and signal, consistent with degenerative disc disease. No suspicious infiltrative lesion is visualized. Presumed reactive discogenic degenerative endplate changes at C4-5, C5-6 and C6-7. Visualization significantly degraded by motion. Evaluation for spinal cord signal is significantly degraded by motion and Puga artifact. No definite myelopathic cord signal is present. Level by level: (The below described foraminal stenoses are caused by uncovertebral spurring and facet arthropathy, unless otherwise unspecified.) C2-3: No significant disc bulge or herniation. No neural foraminal stenosis. C3-4: No significant disc bulge or herniation. Mild bilateral neural foraminal stenosis. C4-5: Disc osteophyte complex results in mild spinal canal stenosis. Mild bilateral neural foraminal stenosis. C5-6: Disc osteophyte complex results in moderate spinal canal stenosis. Moderate bilateral neural foraminal stenosis. C6-7: Disc osteophyte complex results in moderate spinal canal stenosis. Moderate bilateral neural foraminal stenosis. C7-T1: No significant disc bulge or herniation. Mild bilateral neural foraminal stenosis. Prevertebral and paravertebral soft tissue structures are unremarkable. IMPRESSION: Multilevel degenerative spondylosis and degenerative disc disease results in moderate spinal canal stenosis at C5-6 and C6-7 with moderate bilateral neural foraminal stenosis. Visualization severely degraded by motion. Evaluation for spinal cord signal is significantly degraded by motion and Puga artifact. Cannot exclude myelopathic cord signal. No definite myelopathic cord signal is visualized in the cervical spine. Suspected Puga artifact artifact in the upper thoracic spine. Normal [facility] No Panel Informationon 05-09 Interpretation and review of laboratory results Normal [facility] Interpretation and review of laboratory results Abnormal [facility] POC Sample Type CAPBL [facility] PHOSPHATE, INORGANICon 05-09 Phosphorous 3.7 mg/dL Normal 2.2-4.6 [facility] Comment on above: Performed By: #### M GO, CHM7, IPB, CKB, TRIG, LDO #### [facility] (DEFAULT) [address] [place] [address] Interpretation and review of laboratory results Normal [facility] Phosphate [Mass/Vol] 3.8 mg/dL 2.2 - 4 .6 mg/dL [facility] Phosphate [Mass/Vol] 3.8 mg/dL 2.2 - 4 .6 mg/dL [facility] Phosphorous 3.8 mg/dL Normal 2.2-4.6 [facility] Comment on above: Order Comment: If ph osphate level is less than or equal to 2.0 mg/dL, recheck phosphate 6 hours after replacement. Performed By: #### F CRAG #### [facility] (DEFAULT) [address] [place] [address] Phosphorous 3.8 mg/dL Normal 2.2-4.6 [facility] Comment on above: Performed By: #### M GO, CHM7, IPB, CKB, TRIG, LDO #### [facility] (DEFAULT) [address] [place] [address] US.doppler Upper extremity v ein - leftOrdered By: Pratik Hooper on 05-09-2024 [facility] Work Phone: US.doppler Upper extremity v ein - lefton 05-09-2024 Radiology Study observation (narrative) [facility] VENOUS BLOOD GASon 5 Base excess Calc (Bld) [Moles/Vol] 2.1 mmol/L -3.0 - 3.0 mmol/L [facility] CO2 (Bld) [Partial pressure] 41 mm[Hg] [facility] HCO3 (Bld) [Moles/Vol] 27 mmol/L 22 - 29 mmol/L [facility] Interpretation and review of laboratory results Abnormal [facility] Oxygen (Bld) [Partial pressure] 51 mm[Hg] mm Hg [facility] Oxygen saturation in Blood 85 % High 70 - 80 % [facility] pH (Bld) 7.42 [pH] 7.32 - 7.43 [facility] Specimen source Nom (Unsp spec) Venous [facility] Base Excess 2.1 mmol/L Normal -3.0-3.0 [facility] Comment on above: Performed By: #### M GO, CHM7, IPB, CKB, TRIG, LDO #### [facility] (DEFAULT) [address] [place] [address] [phone] HCO3 (Bld) [Moles/Vol] 27 mmol/L Normal 22-[address] [facility] Comment on above: Performed By: #### M GO, CHM7, IPB, CKB, TRIG, LDO #### [facility] (DEFAULT) [address] [place] [address] 97421 Oxygen saturation in Blood 85 % High 70-80 [facility] Comment on above: Performed By: #### M GO, CHM7, IPB, CKB, TRIG, LDO #### [facility] (DEFAULT) [address] [place] [address] 35541 pCO2, Venous 41 mm Hg Normal 36-52 [facility] Comment on above: Performed By: #### M GO, CHM7, IPB, CKB, TRIG, LDO #### [facility] (DEFAULT) [address] [place] [address] 62746 pH, Venous 7.42 Normal 7.32-7.43 [facility] Comment on above: Performed By: #### M GO, CHM7, IPB, CKB, TRIG, LDO #### [facility] (DEFAULT) [address] [place] [address] 29123 pO2, Venous 51 mm Hg Normal [facility] Comment on above: Result Comment: Veno us pO2 is not recommended for the evaluation of oxygen status, clinical correlation is recommended. Performed By: #### M GO, CHM7, IPB, CKB, TRIG, LDO #### [facility] (DEFAULT) [address] [place] [phone] Specimen type Nom (Spec) Venous Normal [facility] Comment on above: Performed By: #### M ROXY TELLO, IPB, CKB, TRIG, LDO #### [facility] (DEFAULT) [address] [address] VITAMIN B12on 05-09-2024 Cobalamin (Vitamin B12) [Mass/Vol] 1322 pg/mL High 211-911 [facility] Comment on above: Result Comment: Test ing of Methylmalonic Acid and Intrinsic Factor Blocking Antibody are recommended if clinical suspicion for pernicious anemia due to B12 deficiency is high for patients with intermediate B12 levels (211 to 400 pg/mL) to rule out spurious heterophile antibodies. Performed By: #### M ROXY TELLO, IPB, CKB, TRIG, LDO #### [facility] (DEFAULT) [address] [address] C DIFFICILE TWO STEPon 05-08 C Difficile By Pcr Negative Normal Negative [facility] Comment on above: Order Comment: C. di fficile toxin gene testing is clinically indicated if a patient has 3 or more watery, unformed stools in 24hrs. Assess patient for common causes of diarrhea such as antibiotics, laxatives, stool softeners, tube feeding, etc. Collect sample in white stool collection vial or sterile containerFor Outpatient collection send refrigerated 2-8?C. For Inpatients please send the specimen on ice Result Comment: This assay detects C. difficile (Toxin B gene DNA) by PCR. Performed By: #### M ROXY TELLO, IPB, CKB, TRIG, LDO #### [facility] (DEFAULT) [address] [place] [address]855 CBC,PLATELETSon 05-08-2024 Erythrocyte distribution width (RBC) [Ratio] 20.5 % High 10.8 - 14.9 % [facility] Hematocrit (Bld) [Volume fraction] 28.9 % Low 34.9 - 44.3 % [facility] Hemoglobin (Bld) [Mass/Vol] 8.8 g/dL Low 11.4 - 15.2 g/dL [facility] Interpretation and review of laboratory results Abnormal [facility] MCH (RBC) [Entitic mass] 30.1 pg 25.9 - 33.9 pg [facility] MCHC (RBC) [Mass/Vol] 30.4 g/dL Low 31.4 - 35.9 g/dL [facility] MCV (RBC) [Entitic vol] 99 fL High 79.6 - 97.7 fL [facility] Platelet mean volume (Bld) [Entitic vol] [facility] Platelets (Bld) [#/Vol] 77 10*3/uL Low 150 - 393 K/uL [facility] RBC (Bld) [#/Vol] 2.92 10*6/uL Low [facility] WBC (Bld) [#/Vol] 15.34 10*3/uL High 3.99 - 11.19 K/uL [facility] Hematocrit (Bld) [Volume fraction] 28.9 % Low 34.9-44.3 [facility] Comment on above: Performed By: #### M OMER, CHM7, IPB, CKB, TRIG, LDO #### [facility] (DEFAULT) [address] [address] Hemoglobin (Bld) [Mass/Vol] 8.8 g/dL Low 11.4-15.2 [facility] Comment on above: Performed By: #### M OMER, CHM7, IPB, CKB, TRIG, LDO #### [facility] (DEFAULT) [address] [address] MCV (RBC) [Entitic vol] 99.0 fL High 79.6-97.7 [facility] Comment on above: Performed By: #### M GO, CHM7, IPB, CKB, TRIG, LDO #### [facility] (DEFAULT) [address] [address] Mean Cell Hgb 30.1 pg Normal 25.9-33.9 [facility] Comment on above: Performed By: #### M GO, CHM7, IPB, CKB, TRIG, LDO #### [facility] (DEFAULT) [address] [place] [address] 42839 Mean Cell Hgb Conc 30.4 g/dL Low 31.4-35.9 [facility] Comment on above: Performed By: #### M GO, CHM7, IPB, CKB, TRIG, LDO #### [facility] (DEFAULT) [address] [place] [address] 83676 Mean Platelet Volume Normal [facility] Comment on above: Result Comment: Not measured Performed By: #### M GO, CHM7, IPB, CKB, TRIG, LDO #### [facility] (DEFAULT) [address] [place] [address]16 Platelets (Bld) [#/Vol] 77 10*3/uL Low 150-393 [facility] Comment on above: Performed By: #### M GO, CHM7, IPB, CKB, TRIG, LDO #### [facility] (DEFAULT) [address] [place] [address] 01850 RBC (Bld) [#/Vol] 2.92 10*6/uL Low 3.91-5.04 [facility] Comment on above: Performed By: #### M GO, CHM7, IPB, CKB, TRIG, LDO #### [facility] (DEFAULT) [address] [place] [address] 40125 RBC Distribution 20.5 % High 10.8-14.9 [facility] Comment on above: Performed By: #### M GO, CHM7, IPB, CKB, TRIG, LDO #### [facility] (DEFAULT) [address] [place] [address] 73245 WBC (Bld) [#/Vol] 15.34 10*3/uL High 3.99-11.19 [facility] Comment on above: Performed By: #### M GO, CHM7, IPB, CKB, TRIG, LDO #### [facility] (DEFAULT) [address] [place] [address] CHEM 7 (LYTES,BUN,CREA,GLUC) on 05-08-2024 Anion gap [Moles/Vol] 16 mmol/L 7 - 17 mmol/L [facility] Chloride [Moles/Vol] 106 mmol/L 98 - 10 8 mmol/L [facility] CO2 [Moles/Vol] 22 mmol/L 21 - 31 mmol/L [facility] Creatinine [Mass/Vol] 2.34 mg/dL High 0.50 - 1.20 mg/dL [facility] eGFR, CKD-EPI, Female 20 Low - PINF [facility] Glucose [Mass/Vol] 109 mg/dL High 70 - 99 mg/dL [facility] Interpretation and review of laboratory results Abnormal [facility] Osmolality Calc [Osmolality] 299 [facility] Potassium [Moles/Vol] 4 mmol/L 3.5 - 5.0 mmol/L [facility] Sodium [Moles/Vol] 140 mmol/L 135 - 145 mmol/L [facility] Urea nitrogen [Mass/Vol] 28 mg/dL High 7 - 25 mg/dL [facility] Urea nitrogen/Creatinine [Mass ratio] 12 mg/mg [facility] Anion gap [Moles/Vol] 16 mmol/L Normal 7-17 [facility] Comment on above: Performed By: #### M CHEMO TELLO7, IPB, CKB, TRIG, LDO #### [facility] (DEFAULT) [address] [place] [address] Chloride [Moles/Vol] 106 mmol/L Normal 98-108 [facility] Comment on above: Performed By: #### M OMER CHM7, IPB, CKB, TRIG, LDO #### [facility] (DEFAULT) [address] [place] [address] CO2 [Moles/Vol] 22 mmol/L Normal 21-31 [facility] Comment on above: Performed By: #### M GO, CHM7, IPB, CKB, TRIG, LDO #### [facility] (DEFAULT) [address] [place] [address] Creatinine [Mass/Vol] 2.34 mg/dL High 0.50-1.20 [facility] Comment on above: Performed By: #### M GO, CHM7, IPB, CKB, TRIG, LDO #### [facility] (DEFAULT) [address] [place] [address] GFR/1.73 sq M.predicted among non-blacks MDRD (S/P/Bld) [Vol rate/Area] 20 mL/min/{1.73_m2} Low >=60 [facility] Comment on above: Result Comment: Repo rted eGFR is based on the CKD-EPI 2020 equation using creatinine, age, and sex. Performed By: #### M GO, CHM7, IPB, CKB, TRIG, LDO #### [facility] (DEFAULT) [address] [place] [address] Glucose [Mass/Vol] 109 mg/dL High 70-99 [facility] Comment on above: Performed By: #### M GO, CHM7, IPB, CKB, TRIG, LDO #### [facility] (DEFAULT) [address] [place] [address] Osmolality [Osmolality] 299 mosm/kg Normal 278-305 [facility] Comment on above: Performed By: #### M GO, CHM7, IPB, CKB, TRIG, LDO #### [facility] (DEFAULT) [address] [place] [address]38 Potassium [Moles/Vol] 4.0 mmol/L Normal 3.5-5.0 [facility] Comment on above: Performed By: #### M GO, CHM7, IPB, CKB, TRIG, LDO #### [facility] (DEFAULT) [address] [place] [address] 10562 Sodium [Moles/Vol] 140 mmol/L Normal 135-145 [facility] Comment on above: Performed By: #### M GO, CHM7, IPB, CKB, TRIG, LDO #### [facility] (DEFAULT) [address] [place] [address] Urea nitrogen [Mass/Vol] 28 mg/dL High 7-25 [facility] Comment on above: Performed By: #### M GO, CHM7, IPB, CKB, TRIG, LDO #### [facility] (DEFAULT) [address] [place] [address] Urea nitrogen/Creatinine [Mass ratio] 12 mg/mg Normal [facility] Comment on above: Performed By: #### M GO, CHM7, IPB, CKB, TRIG, LDO #### [facility] (DEFAULT) [address] [place] [address] GLUCOSE POCon 05-08-2024 Glucose [Mass/Vol] 76 mg/dL 70 - 99 mg/dL [facility] Glucose [Mass/Vol] 83 mg/dL 70 - 99 mg/dL [facility] Glucose [Mass/Vol] 102 mg/dL High 70 - 99 mg/dL [facility] Glucose [Mass/Vol] 109 mg/dL High 70 - 99 mg/dL [facility] Glucose [Mass/Vol] 107 mg/dL High 70 - 99 mg/dL [facility] Glucose [Mass/Vol] 113 mg/dL High 70 - 99 mg/dL [facility] Glucose [Mass/Vol] 92 mg/dL 70 - 99 mg/dL [facility] Glucose [Mass/Vol] 104 mg/dL High 70 - 99 mg/dL [facility] Glucose [Mass/Vol] 86 mg/dL 70 - 99 mg/dL [facility] Glucose [Mass/Vol] 91 mg/dL 70 - 99 mg/dL [facility] Glucose [Mass/Vol] 103 mg/dL High 70 - 99 mg/dL [facility] Glucose [Mass/Vol] 89 mg/dL 70 - 99 mg/dL [facility] Glucose [Mass/Vol] 109 mg/dL High 70 - 99 mg/dL [facility] Interpretation and review of laboratory results Abnormal [facility] POC Sample Type CAPBL [facility] IONIZED CALCIUM, WHOLE BLOOD Ordered By: Hakeem Butcher on 05-08-2024 Calcium.ionized (Bld) [Moles/Vol] 3.7 mg/dL Low 4.60 - 5.30 mg/dL [facility] Interpretation and review of laboratory results Abnormal [facility] IONIZED CALCIUM, WHOLE BLOOD on 05-08-2024 ICA 3.70 mg/dL Low 4.60-5.30 [facility] Comment on above: Order Comment: If io nized calcium is less than or equal to 3.0 mg/dL, recheck ionized calcium 2 hours after replacement. Performed By: #### M OMER, CHM7, IPB, CKB, TRIG, LDO #### [facility] (DEFAULT) [address] [place] [address] LOWER RESPIRATORY CULTURE, B ACTERIALon 05-08-2024 Bacteria identified Cx Nom (Unsp spec) Normal [facility] Comment on above: Result Comment: Grow th 4471 Light Growth Common oropharyngeal microbes Performed By: #### M OMER, CHM7, IPB, CKB, TRIG, LDO #### [facility] (DEFAULT) [address] [place] [address] Microscopic observation Gram stain Nom (Unsp spec) Normal [facility] Comment on above: Result Comment: Neut rophils, Heavy Contaminating bacteria and epithelials present Specimen is of optimum quality Performed By: #### M OMER, CHM7, IPB, CKB, TRIG, LDO #### [facility] (DEFAULT) [address] [place] [address] MAGNESIUMon 05-08-2024 Magnesium [Mass/Vol] 2.3 mg/dL 1.6 - 2 .6 mg/dL [facility] Magnesium [Mass/Vol] 2.3 mg/dL Normal 1.6-2.6 [facility] Comment on above: Performed By: #### G ASVL #### [facility] (DEFAULT) [address] [place] [address] No Panel Informationon 05-08 Interpretation and review of laboratory results Abnormal [facility] POC Sample Type CAPBL [facility] POC Sample Type VENO [facility] review of laboratory results Abnormal [facility] POC Sample Type CAPBL [facility] Interpretation and review of laboratory results Normal [facility] PHOSPHATE, INORGANICon 05-08 Interpretation and review of laboratory results Normal [facility] Phosphate [Mass/Vol] 3.3 mg/dL 2.2 - 4 .6 mg/dL [facility] Phosphorous 3.3 mg/dL Normal 2.2-4.6 [facility] Comment on above: Order Comment: If ph osphate level is less than or equal to 2.0 mg/dL, recheck phosphate 6 hours after replacement. Performed By: #### M OMER, CHM7, IPB, CKB, TRIG, LDO #### [facility] (DEFAULT) [address] [place] [address] Phosphate [Mass/Vol] 3.6 mg/dL 2.2 - 4 .6 mg/dL [facility] Phosphorous 3.6 mg/dL Normal 2.2-4.6 [facility] Comment on above: Performed By: #### M GO, CHM7, IPB, CKB, TRIG, LDO #### [facility] (DEFAULT) [address] [place] [address] POTASSIUMon 05-08-2024 Interpretation and review of laboratory results Normal [facility] Potassium [Moles/Vol] 3.9 mmol/L 3.5 - 5.0 mmol/L [facility] Potassium [Moles/Vol] 3.9 mmol/L Normal 3.5-5.0 [facility] Comment on above: Order Comment: If po tassium level is less than or equal to 3.0 mmol/L, recheck potassium 4 hours after replacement. Performed By: #### M GO, CHM7, IPB, CKB, TRIG, LDO #### [facility] (DEFAULT) [address] [place] [address] Portable XR Chest Viewson RADIOLOGY RADIOLOGY [facility] Radiology Study observation (narrative) [facility] URINALYSIS REFLEX TO CULTURE PERFORMABLEon 05-08-2024 Appearance (U) Clear Clear [facility] Bacteria LM Ql (Urine sed) ABSENT ABSENT [facility] Color (U) Yellow Yellow [facility] Epithelial cells.squamous LM Ql (Urine sed) 0-2/hpf 0-2/hpf, 3-5/hpf = 1+ [facility] Glucose Test strip (U) [Mass/Vol] Negative Negative [facility] Interpretation and review of laboratory results Abnormal [facility] Ketones (U) [Mass/Vol] Negative Negative [facility] Leukocyte esterase Test strip Ql (U) Trace Abnormal Negative [facility] Nitrite Ql (U) Negative Negative [facility] pH (U) 5.0 [pH] 5.0 - 7.0 [facility] Protein (U) [Mass/Vol] 30 mg/dL Abnormal Negative [facility] RBC (U) [#/Vol] Moderate Abnormal [facility] RBC LM.HPF (Urine sed) [#/Area] /[HPF] Abnormal [facility] Specific gravity (U) [Rel density] 1.008 1.001 - 1.035 [facility] Urobilinogen (U) [Mass/Vol] 0.2 E.U./dL 0.2 E.U/dL, 1.0 E.U/dL [facility] WBC LM.HPF (Urine sed) [#/Area] 0 - 5 [facility] Appearance (U) Clear Normal Clear [facility] Comment on above: Order Comment: For i ndwelling catheters, specimen collection is acceptable on catheter day 1 and 2 only. ? Performed By: #### M GO, CHM7, IPB, CKB, TRIG, LDO #### [facility] (DEFAULT) [address] [place] [address] [phone] Bacteria ABSENT Normal ABSENT [facility] Comment on above: Order Comment: For i ndwelling catheters, specimen collection is acceptable on catheter day 1 and 2 only. ? Performed By: #### M GO, CHM7, IPB, CKB, TRIG, LDO #### [facility] (DEFAULT) [address] [place] [address] 47559 Blood Urine Moderate Abnormal Negative [facility] Comment on above: Order Comment: For i ndwelling catheters, specimen collection is acceptable on catheter day 1 and 2 only. ? Performed By: #### M GO, CHM7, IPB, CKB, TRIG, LDO #### [facility] (DEFAULT) [address] [place] [address] 05765 Color (U) Yellow Normal Yellow [facility] Comment on above: Order Comment: For i ndwelling catheters, specimen collection is acceptable on catheter day 1 and 2 only. ? Performed By: #### M GO, CHM7, IPB, CKB, TRIG, LDO #### [facility] (DEFAULT) [address] [place] [address] 74529 Glucose Ql (U) Negative Normal Negative [facility] Comment on above: Order Comment: For i ndwelling catheters, specimen collection is acceptable on catheter day 1 and 2 only. ? Performed By: #### M GO, CHM7, IPB, CKB, TRIG, LDO #### [facility] (DEFAULT) [address] [place] [address] 84895 Ketones Ql (U) Negative Normal Negative [facility] Comment on above: Order Comment: For i ndwelling catheters, specimen collection is acceptable on catheter day 1 and 2 only. ? Performed By: #### M GO, CHM7, IPB, CKB, TRIG, LDO #### [facility] (DEFAULT) [address] [place] [address] 12566 Leukocyte esterase Test strip Ql (U) Trace Abnormal Negative [facility] Comment on above: Order Comment: For i ndwelling catheters, specimen collection is acceptable on catheter day 1 and 2 only. ? Performed By: #### M GO, CHM7, IPB, CKB, TRIG, LDO #### [facility] (DEFAULT) [address] [place] [address] 28044 Nitrites Urine Negative Normal Negative [facility] Comment on above: Order Comment: For i ndwelling catheters, specimen collection is acceptable on catheter day 1 and 2 only. ? Performed By: #### M GO, CHM7, IPB, CKB, TRIG, LDO #### [facility] (DEFAULT) [address] [place] [address] 27861 pH (U) 5.0 [pH] Normal 5.0-7.0 [facility] Comment on above: Order Comment: For i ndwelling catheters, specimen collection is acceptable on catheter day 1 and 2 only. ? Performed By: #### M GO, CHM7, IPB, CKB, TRIG, LDO #### [facility] (DEFAULT) [address] [place] [address] 95032 Protein Urine 30 mg/dL Abnormal Negative [facility] Comment on above: Order Comment: For i ndwelling catheters, specimen collection is acceptable on catheter day 1 and 2 only. ? Performed By: #### M GO, CHM7, IPB, CKB, TRIG, LDO #### [facility] (DEFAULT) [address] [place] [address] 93490 RBC LM.HPF (Urine sed) [#/Area] /[HPF] Abnormal 0-2 [facility] Comment on above: Order Comment: For i ndwelling catheters, specimen collection is acceptable on catheter day 1 and 2 only. ? Performed By: #### M GO, CHM7, IPB, CKB, TRIG, LDO #### [facility] (DEFAULT) [address] [place] [address] 75315 Specific [place] Urine 1.008 Normal 1.001 -1.03 5 [facility] Comment on above: Order Comment: For i ndwelling catheters, specimen collection is acceptable on catheter day 1 and 2 only. ? Performed By: #### M GO, CHM7, IPB, CKB, TRIG, LDO #### [facility] (DEFAULT) [address] [place] [address] 20234 Squamous/Epithelial Cells 0-2/hpf Normal 0-2/hpf, 3-5/hpf = 1+ [facility] Comment on above: Order Comment: For i ndwelling catheters, specimen collection is acceptable on catheter day 1 and 2 only. ? Performed By: #### M GO, CHM7, IPB, CKB, TRIG, LDO #### [facility] (DEFAULT) [address] [place] [address] 28887 Urobilinogen Urine 0.2 E.U./dL Normal 0.2 E.U/dL, 1.0 E.U/dL [facility] Comment on above: Order Comment: For i ndwelling catheters, specimen collection is acceptable on catheter day 1 and 2 only. ? Performed By: #### M GO, CHM7, IPB, CKB, TRIG, LDO #### [facility] (DEFAULT) [address] [place] [address] 33561 WBC Urine 0 - 5 Normal 0 - 5 [facility] Comment on above: Order Comment: For i ndwelling catheters, specimen collection is acceptable on catheter day 1 and 2 only. ? Performed By: #### M GO, CHM7, IPB, CKB, TRIG, LDO #### [facility] (DEFAULT) [address] [place] [address] 62418 VENOUS BLOOD GASon 5 Base excess Calc (Bld) [Moles/Vol] -1.9000 mmol/L -3.0 - 3.0 mmol/L [facility] CO2 (Bld) [Partial pressure] 43 mm[Hg] [facility] HCO3 (Bld) [Moles/Vol] 24 mmol/L 22 - 29 mmol/L [facility] Oxygen (Bld) [Partial pressure] 40 mm[Hg] mm Hg [facility] Oxygen saturation in Blood 71 % 70 - 80 % [facility] pH (Bld) 7.35 [pH] 7.32 - 7.43 [facility] Specimen source Nom (Unsp spec) Venous [facility] Base Excess -1.9 mmol/L Normal -3.0-3.0 [facility] Comment on above: Performed By: #### M GO, CHM7, IPB, CKB, TRIG, LDO #### [facility] (DEFAULT) [address] [place] [address] 50177 HCO3 (Bld) [Moles/Vol] 24 mmol/L Normal 22-[address] [facility] Comment on above: Performed By: #### M GO, CHM7, IPB, CKB, TRIG, LDO #### [facility] (DEFAULT) [address] [place] [address] 38154 Oxygen saturation in Blood 71 % Normal 70-80 [facility] Comment on above: Performed By: #### M GO, CHM7, IPB, CKB, TRIG, LDO #### [facility] (DEFAULT) [address] [place] [address] 46887 pCO2, Venous 43 mm Hg Normal 36-52 [facility] Comment on above: Performed By: #### M GO, CHM7, IPB, CKB, TRIG, LDO #### [facility] (DEFAULT) [address] [place] [address] 17964 pH, Venous 7.35 Normal 7.32-7.43 [facility] Comment on above: Performed By: #### M GO, CHM7, IPB, CKB, TRIG, LDO #### [facility] (DEFAULT) [address] [place] [address] 39237 pO2, Venous 40 mm Hg Normal [facility] Comment on above: Result Comment: Veno us pO2 is not recommended for the evaluation of oxygen status, clinical correlation is recommended. Performed By: #### M GO, CHM7, IPB, CKB, TRIG, LDO #### [facility] (DEFAULT) [address] [place] [address] 79498 Specimen type Nom (Spec) Venous Normal [facility] Comment on above: Performed By: #### M GO, CHM7, IPB, CKB, TRIG, LDO #### [facility] (DEFAULT) [address] [place] [address] 41875 XR CHEST 1 VIEW PORTABLEon 0 05-08-2024 XR CHEST 1 VIEW PORTABLE EXAM: XR CHEST 1 VIEW PORTABLE, 05/08/2024 09:25 AM COMPARISON: May 07, 2024 CLINICAL INDICATIONS: C/f new pneumonia given coughing, fever and increased oxygen requirement RELEVANT CLINICAL HISTORY: FINDINGS: (Adequate technique) The endotracheal tube is 2.7 cm above the lisa. NG tube terminates. The diaphragm, outside the [id number]. The left CVC is removed. Prosthetic right shoulder. Degenerative changes in the spine. Slightly improved lung volumes and decreased medial bibasilar opacities. Mild central bronchial wall cuffing. Stable cardiomediastinal silhouette. No interval bone findings. IMPRESSION: Patient is rotated to the left. Medial bibasilar opacities appear slightly improved or more likely atelectasis in the setting of improved lung volumes. Mild central bronchial wall cuffing can be seen with early edema or bronchitis. Normal [facility] Bacteria identified Cx Nom ( Body fld)Ordered By: Jacki Lopez on 05-07-2024 Bacteria identified Cx Nom (Unsp spec) NO GROWTH DAY 2 OF 2 [facility] Microscopic observation Other stain Nom (Unsp spec) Cytocentrifuge preparation [facility] Microscopic observation Other stain Nom (Unsp spec) [facility], [facility] Other stain Nom (Unsp spec) Mononuclear cells [facility] observation Other stain Nom (Unsp spec) Red Blood Cells Present [facility] Microscopic observation Other stain Nom (Unsp spec) No organisms seen [facility] Bacteria identified Respirat ory culture Nom (Unsp spec)Ordered By: Isadora Byrne on 05-07-2024 Bacteria identified Cx Nom (Unsp spec) Growth [facility] Bacteria identified Cx Nom (Unsp spec) Light Growth Common oropharyngeal microbes [facility] Microscopic observation Other stain Nom (Unsp spec) [facility]ils, [facility] Microscopic [facility] Other stain Nom (Unsp spec) Contaminating bacteria and epithelials present [facility] Microscopic observation Other stain Nom (Unsp spec) Specimen is of optimum quality [facility] CBC,PLATELETSon 05-07-2024 Erythrocyte distribution width (RBC) [Ratio] 18.5 % High 10.8 - 14.9 % [facility] Hematocrit (Bld) [Volume fraction] 24 % Low 34.9 - 44.3 % [facility] Hemoglobin (Bld) [Mass/Vol] 7.5 g/dL Low 11.4 - 15.2 g/dL [facility] Interpretation and review of laboratory results Abnormal [facility] MCH (RBC) [Entitic mass] 31.5 pg 25.9 - 33.9 pg [facility] MCHC (RBC) [Mass/Vol] 31.3 g/dL Low 31.4 - 35.9 g/dL [facility] MCV (RBC) [Entitic vol] 100.8 fL High 79.6 - 97.7 fL [facility] Platelet mean volume (Bld) [Entitic vol] 11.8 fL 8.5 - 12.2 fL [facility] Platelets (Bld) [#/Vol] 73 10*3/uL Low 150 - 393 K/uL [facility] RBC (Bld) [#/Vol] 2.38 10*6/uL Low [facility] WBC (Bld) [#/Vol] 16.89 10*3/uL High 3.99 - 11.19 K/uL [facility] Hematocrit (Bld) [Volume fraction] 24.0 % Low 34.9-44.3 [facility] Comment on above: Performed By: #### F CRAG #### [facility] (DEFAULT) [address] [place] [address] 84872 Hemoglobin (Bld) [Mass/Vol] 7.5 g/dL Low 11.4-15.2 [facility] Comment on above: Performed By: #### F CRAG #### [facility] (DEFAULT) [address] [address] MCV (RBC) [Entitic vol] 100.8 fL High 79.6-97.7 [facility] Comment on above: Performed By: #### F CRAG #### [facility] (DEFAULT) [address] [address] Mean Cell Hgb 31.5 pg Normal 25.9-33.9 [facility] Comment on above: Performed By: #### F CRAG #### [facility] (DEFAULT) [address] [place] [address] 19430 Mean Cell Hgb Conc 31.3 g/dL Low 31.4-35.9 [facility] Comment on above: Performed By: #### F CRAG #### [facility] (DEFAULT) [address] [place] [address] 85385 Platelet mean volume (Bld) [Entitic vol] 11.8 fL Normal 8.5-12.2 [facility] Comment on above: Performed By: #### F CRAG #### [facility] (DEFAULT) [address] [place] [address] 30008 Platelets (Bld) [#/Vol] 73 10*3/uL Low 150-393 [facility] Comment on above: Performed By: #### F CRAG #### [facility] (DEFAULT) [address] [place] [address] 43910 RBC (Bld) [#/Vol] 2.38 10*6/uL Low 3.91-5.04 [facility] Comment on above: Performed By: #### F CRAG #### [facility] (DEFAULT) [address] [place] [address] 90195 RBC Distribution 18.5 % High 10.8-14.9 [facility] Comment on above: Performed By: #### F CRAG #### [facility] (DEFAULT) [address] [place] [address] 21679 WBC (Bld) [#/Vol] 16.89 10*3/uL High 3.99-11.19 [facility] Comment on above: Performed By: #### F CRAG #### [facility] (DEFAULT) [address] [place] [address] 09860 Erythrocyte distribution width (RBC) [Ratio] 16.8 % High 10.8 - 14.9 % [facility] Hematocrit (Bld) [Volume fraction] 19.6 % Low 34.9 - 44.3 % [facility] Hemoglobin (Bld) [Mass/Vol] 5.8 g/dL Critically low 11.4 - 15.2 g/dL [facility] Interpretation and review of laboratory results Abnormal [facility] MCH (RBC) [Entitic mass] 31.7 pg 25.9 - 33.9 pg [facility] MCHC (RBC) [Mass/Vol] 29.6 g/dL Low 31.4 - 35.9 g/dL [facility] MCV (RBC) [Entitic vol] 107.1 fL High 79.6 - 97.7 fL [facility] Platelet mean volume (Bld) [Entitic vol] [facility] Platelets (Bld) [#/Vol] 60 10*3/uL Low 150 - 393 K/uL [facility] RBC (Bld) [#/Vol] 1.83 10*6/uL Low [facility] WBC (Bld) [#/Vol] 14.66 10*3/uL High 3.99 - 11.19 K/uL [facility] Hematocrit (Bld) [Volume fraction] 19.6 % Low 34.9-44.3 [facility] Comment on above: Performed By: #### M GO, CHM7, IPB, CKB, TRIG, LDO #### [facility] (DEFAULT) [address] [address] Hemoglobin (Bld) [Mass/Vol] 5.8 g/dL Critically low 11.4-15.2 [facility] Comment on above: Result Comment: This result has been called to Beto Richard RN by bala on 05/07/2024 02:38:23, and has been read back. Performed By: #### M GO, CHM7, IPB, CKB, TRIG, LDO #### [facility] (DEFAULT) [address] [address] MCV (RBC) [Entitic vol] 107.1 fL High 79.6-97.7 [facility] Comment on above: Performed By: #### M GO, CHM7, IPB, CKB, TRIG, LDO #### [facility] (DEFAULT) [address] [address] Mean Cell Hgb 31.7 pg Normal 25.9-33.9 [facility] Comment on above: Performed By: #### M GO, CHM7, IPB, CKB, TRIG, LDO #### [facility] (DEFAULT) [address] [address] Mean Cell Hgb Conc 29.6 g/dL Low 31.4-35.9 [facility] Comment on above: Performed By: #### M GO, CHM7, IPB, CKB, TRIG, LDO #### [facility] (DEFAULT) [address] [place] [address] 25219 Mean Platelet Volume Normal [facility] Comment on above: Result Comment: Not measured Performed By: #### M GO, CHM7, IPB, CKB, TRIG, LDO #### [facility] (DEFAULT) [address] [place] [address] 41081 Platelets (Bld) [#/Vol] 60 10*3/uL Low 150-393 [facility] Comment on above: Performed By: #### M GO, CHM7, IPB, CKB, TRIG, LDO #### [facility] (DEFAULT) [address] [place] [address] 88620 RBC (Bld) [#/Vol] 1.83 10*6/uL Low 3.91-5.04 [facility] Comment on above: Performed By: #### M GO, CHM7, IPB, CKB, TRIG, LDO #### [facility] (DEFAULT) [address] [place] [address] 15562 RBC Distribution 16.8 % High 10.8-14.9 [facility] Comment on above: Performed By: #### M GO, CHM7, IPB, CKB, TRIG, LDO #### [facility] (DEFAULT) [address] [place] [address] 22783 WBC (Bld) [#/Vol] 14.66 10*3/uL High 3.99-11.19 [facility] Comment on above: Performed By: #### M GO, CHM7, IPB, CKB, TRIG, LDO #### [facility] (DEFAULT) [address] [place] [address] [phone] CHEM 7 (LYTES,BUN,CREA,GLUC) on 05-07-2024 Anion gap [Moles/Vol] 11 mmol/L 7 - 17 mmol/L [facility] Chloride [Moles/Vol] 106 mmol/L 98 - 10 8 mmol/L [facility] CO2 [Moles/Vol] 24 mmol/L 21 - 31 mmol/L [facility] Creatinine [Mass/Vol] 2.11 mg/dL High 0.50 - 1.20 mg/dL [facility] eGFR, CKD-EPI, Female 23 Low - PINF [facility] Glucose [Mass/Vol] 88 mg/dL 70 - 99 mg/dL [facility] Osmolality Calc [Osmolality] 290 [facility] Potassium [Moles/Vol] 3.6 mmol/L 3.5 - 5.0 mmol/L [facility] Sodium [Moles/Vol] 137 mmol/L 135 - 145 mmol/L [facility] Urea nitrogen [Mass/Vol] 24 mg/dL 7 - 25 mg/dL [facility] Urea nitrogen/Creatinine [Mass ratio] 11 mg/mg [facility] Anion gap [Moles/Vol] 11 mmol/L Normal 7-17 [facility] Comment on above: Performed By: #### M GO, CHM7, IPB, CKB, TRIG, LDO #### [facility] (DEFAULT) [address] [place] [address] 92790 Chloride [Moles/Vol] 106 mmol/L Normal 98-108 [facility] Comment on above: Performed By: #### M GO, CHM7, IPB, CKB, TRIG, LDO #### [facility] (DEFAULT) [address] [place] [address] 93555 CO2 [Moles/Vol] 24 mmol/L Normal 21-31 [facility] Comment on above: Performed By: #### M GO, CHM7, IPB, CKB, TRIG, LDO #### [facility] (DEFAULT) [address] [place] [address] 27107 Creatinine [Mass/Vol] 2.11 mg/dL High 0.50-1.20 [facility] Comment on above: Performed By: #### M GO, CHM7, IPB, CKB, TRIG, LDO #### [facility] (DEFAULT) [address] [place] [address] 33441 GFR/1.73 sq M.predicted among non-blacks MDRD (S/P/Bld) [Vol rate/Area] 23 mL/min/{1.73_m2} Low >=60 [facility] Comment on above: Result Comment: Repo rted eGFR is based on the CKD-EPI 2020 equation using creatinine, age, and sex. Performed By: #### M GO, CHM7, IPB, CKB, TRIG, LDO #### [facility] (DEFAULT) [address] [place] [address] 80881 Glucose [Mass/Vol] 88 mg/dL Normal 70-99 [facility] Comment on above: Performed By: #### M GO, CHM7, IPB, CKB, TRIG, LDO #### [facility] (DEFAULT) [address] [place] [address] 85717 Osmolality [Osmolality] 290 mosm/kg Normal 278-305 [facility] Comment on above: Performed By: #### M GO, CHM7, IPB, CKB, TRIG, LDO #### [facility] (DEFAULT) [address] [place] [address] 66306 Potassium [Moles/Vol] 3.6 mmol/L Normal 3.5-5.0 [facility] Comment on above: Performed By: #### M GO, CHM7, IPB, CKB, TRIG, LDO #### [facility] (DEFAULT) [address] [place] [address] 24633 Sodium [Moles/Vol] 137 mmol/L Normal 135-145 [facility] Comment on above: Performed By: #### M GO, CHM7, IPB, CKB, TRIG, LDO #### [facility] (DEFAULT) [address] [place] [address] 17829 Urea nitrogen [Mass/Vol] 24 mg/dL Normal 7-25 [facility] Comment on above: Performed By: #### M GO, CHM7, IPB, CKB, TRIG, LDO #### [facility] (DEFAULT) [address] [place] [address] Urea nitrogen/Creatinine [Mass ratio] 11 mg/mg Normal [facility] Comment on above: Performed By: #### M GO, CHM7, IPB, CKB, TRIG, LDO #### [facility] (DEFAULT) [address] [place] [address] CKon 05-07-2024 CK [Catalytic activity/Vol] 57 U/L 30 - 184 U/L [facility] CK [Catalytic activity/Vol] 57 U/L Normal 30-184 [facility] Comment on above: Order Comment: While on Propofol. Performed By: #### M GO, CHM7, IPB, CKB, TRIG, LDO #### [facility] (DEFAULT) [address] [place] [address] 56945 CONTINUOUS CARDIAC MONITORIN G STRIPOrdered By: Unassigned Pacs on 05-07-2024 [facility] Work Phone: FIBRINOGEN, CLOTTABLEon 02-0 Fibrinogen Coag (PPP) [Mass/Vol] 426 mg/dL High 220 - 410 mg/dL [facility] Interpretation and review of laboratory results Abnormal [facility] Fibrinogen-Clottable 426 mg/dL High 220-410 [facility] Comment on above: Order Comment: Fibr inogen levels may be altered by the normal physiologic changes of and should be interpreted considering reference ranges specific to gestational age.First Trimester: 244-510 mg/dLSecond Trimester: 291-538 mg/dLThird Trimester/: 373-619 mg/dLReference: Santiago M, Sarah LG, Anne FG. and laboratory studies: a reference table for clinicians. Obstet Gynecol 2009; 114:1326. Result Comment: Func tional Fibrinogen (activity) levels can be affected by direct thrombin inhibitors such as heparins (>2.0 IU/ml) and dabigatran. Abnormal results should be interpreted with caution. Performed By: #### G ASVL #### [facility] (DEFAULT) [address] [place] [address] 31709 HAPTOGLOBINon 05-07-2024 Haptoglobin [Mass/Vol] 306 mg/dL High 44 - 215 mg/dL [facility] Interpretation and review of laboratory results Abnormal [facility] HEMOGLOBIN & HEMATOCRITon Hematocrit (Bld) [Volume fraction] 27.3 % Low 34.9 - 44.3 % [facility] Hemoglobin (Bld) [Mass/Vol] 8.5 g/dL Low 11.4 - 15.2 g/dL [facility] Interpretation and review of laboratory results Abnormal [facility] Hematocrit (Bld) [Volume fraction] 27.3 % Low 34.9-44.3 [facility] Comment on above: Performed By: #### M GO, CHM7, IPB, CKB, TRIG, LDO #### [facility] (DEFAULT) [address] [place] [address] 18804 Hemoglobin (Bld) [Mass/Vol] 8.5 g/dL Low 11.4-15.2 [facility] Comment on above: Performed By: #### M GO, CHM7, IPB, CKB, TRIG, LDO #### [facility] (DEFAULT) [address] [place] [address] 23405 Hematocrit (Bld) [Volume fraction] 20 % Low 34.9 - 44.3 % [facility] Hemoglobin (Bld) [Mass/Vol] 6.1 g/dL Critically low 11.4 - 15.2 g/dL [facility] Interpretation and review of laboratory results Abnormal [facility] Hematocrit (Bld) [Volume fraction] 20.0 % Low 34.9-44.3 [facility] Comment on above: Order Comment: Pleas e obtain one hour after completing pRBC infusion Performed By: #### M GO, CHM7, IPB, CKB, TRIG, LDO #### [facility] (DEFAULT) [address] [place] [address] 40022 Hemoglobin (Bld) [Mass/Vol] 6.1 g/dL Critically low 11.4-15.2 [facility] Comment on above: Order Comment: Pleas e obtain one hour after completing pRBC infusion Result Comment: This result has been called to Beto Richard RN by bala on 05/07/2024 06:56:52, and has been read back. Performed By: #### M GO, CHM7, IPB, CKB, TRIG, LDO #### [facility] (DEFAULT) [address] [place] [address] 58145 IONIZED CALCIUM, WHOLE BLOOD Ordered By: Truong Allen on 05-07-2024 Calcium.ionized (Bld) [Moles/Vol] 4.14 mg/dL Low 4.60 - 5.30 mg/dL [facility] Interpretation and review of laboratory results Abnormal [facility] IONIZED CALCIUM, WHOLE BLOOD on 05-07-2024 ICA 4.14 mg/dL Low 4.60-5.30 [facility] Comment on above: Order Comment: If io nized calcium is less than or equal to 3.0 mg/dL, recheck ionized calcium 2 hours after replacement. Performed By: #### G ASVL #### [facility] (DEFAULT) [address] [place] [address] 54335 ICA 4.32 mg/dL Low 4.60-5.30 [facility] Comment on above: Performed By: #### F CRAG #### [facility] (DEFAULT) [address] [place] [address] 05557 IONIZED CALCIUM, WHOLE BLOOD Ordered By: Keyana Kumar on 05-07-2024 Calcium.ionized (Bld) [Moles/Vol] 4.32 mg/dL Low 4.60 - 5.30 mg/dL [facility] Interpretation and review of laboratory results Abnormal [facility] LACTATE DEHYDROGENASEon 02-0 1-2025 LDH Lactate to pyruvate reaction [Catalytic activity/Vol] 265 U/L High 100 - 190 U/L [facility] LD Total 265 U/L High 100-190 [facility] Comment on above: Performed By: #### M GO, CHM7, IPB, CKB, TRIG, LDO #### [facility] (DEFAULT) [address] [place] [address] 71299 MAGNESIUMon 05-07-2024 Magnesium [Mass/Vol] 1.7 mg/dL 1.6 - 2 .6 mg/dL [facility] Magnesium [Mass/Vol] 1.7 mg/dL Normal 1.6-2.6 [facility] Comment on above: Performed By: #### M GO, CHM7, IPB, CKB, TRIG, LDO #### [facility] (DEFAULT) [address] [place] [address] 34134 Magnesium [Mass/Vol] 1.8 mg/dL 1.6 - 2 .6 mg/dL [facility] Magnesium [Mass/Vol] 1.8 mg/dL Normal 1.6-2.6 [facility] Comment on above: Performed By: #### M GO, CHM7, IPB, CKB, TRIG, LDO #### [facility] (DEFAULT) [address] [place] [address] 87318 MR Brain WO and W contrast I Praneeth 05-07-2024 RADIOLOGY RADIOLOGY [facility] MR Brain WO and W contrast I VOrdered By: Michael De León on 05-07-2024 [facility] Work Phone: [facility] MRI BRAIN WITH AND WITHOUT CONTRAST EXAM: MRI BRAIN WITH AND WITHOUT CONTRAST, 05/06/2024 23:53 PM COMPARISON: CT head 05/05/2024. CLINICAL INDICATIONS: 83 years Female seizure protocol. new onset seizure in setting of uremia and infection TECHNIQUE: A series of multisequence, multiplanar images of the brain are obtained both before and after intravenous administration of gadolinium-based contrast using standard protocol. Additionally, coronal high resolution T2-weighted images through the temporal lobes were obtained. Study was performed at 1.5 Nicole. CONTRAST: Gadopiclenol SOLN 1-25 mL; Route of Administration: Intravenous; Dose: 11 mL. FINDINGS: Motion artifact on multiple pulse sequences degrades evaluation. Questionable small focus of abnormal cortical/subcortical FLAIR signal in the medial right parietal lobe (series 13 image 20). No abnormal signal in this location on the other sequences. No evidence of recent infarct. No acute intracranial hemorrhage. No abnormal enhancement. No extracerebral collection. Sellar and parasellar structures are unremarkable. Posterior fossa is unremarkable. Ventricles and sulci are within normal limits. Scattered opacity throughout the paranasal sinuses with layering fluid within the nasopharynx and posterior nasal cavity, which may be related to the patient's intubated state. Opacification of the bilateral mastoid air cells. Prior left-sided cataract surgery. IMPRESSION: Motion artifact on multiple pulse sequences degrades evaluation. Questionable small focus of abnormal cortical/subcortical FLAIR signal in the medial right parietal lobe. This could be artifactual or potentially related to postictal changes. Normal [facility] No Panel Informationon 05-07 Interpretation and review of laboratory results Normal [facility] Interpretation and review of laboratory results Abnormal [facility] Interpretation and review of laboratory results Normal [facility] Interpretation and review of laboratory results Abnormal [facility] PHOSPHATE, INORGANICon 05-07 Interpretation and review of laboratory results Normal [facility] Phosphate [Mass/Vol] 3.6 mg/dL 2.2 - 4 .6 mg/dL [facility] Phosphorous 3.6 mg/dL Normal 2.2-4.6 [facility] Comment on above: Performed By: #### M GO, CHM7, IPB, CKB, TRIG, LDO #### [facility] (DEFAULT) [address] [place] [address] 99455 Phosphate [Mass/Vol] 3.7 mg/dL 2.2 - 4 .6 mg/dL [facility] Phosphorous 3.7 mg/dL Normal 2.2-4.6 [facility] Comment on above: Performed By: #### M GO, CHM7, IPB, CKB, TRIG, LDO #### [facility] (DEFAULT) [address] [place] [address] 26942 Phosphate [Mass/Vol] 3.2 mg/dL 2.2 - 4 .6 mg/dL [facility] Phosphorous 3.2 mg/dL Normal 2.2-4.6 [facility] Comment on above: Performed By: #### M GO, CHM7, IPB, CKB, TRIG, LDO #### [facility] (DEFAULT) [address] [place] [address] 17408 PLATELET COUNTon 05-07-2024 Platelet mean volume (Bld) [Entitic vol] [facility] Platelets (Bld) [#/Vol] 63 10*3/uL Low 150 - 393 K/uL [facility] Mean Platelet Volume Normal [facility] Comment on above: Result Comment: Not measured Performed By: #### M GO, CHM7, IPB, CKB, TRIG, LDO #### [facility] (DEFAULT) [address] [place] [address] 35944 Platelets (Bld) [#/Vol] 63 10*3/uL Low 150-393 [facility] Comment on above: Performed By: #### M GO, CHM7, IPB, CKB, TRIG, LDO #### [facility] (DEFAULT) [address] [place] [address] 15020 POTASSIUMon 05-07-2024 Potassium [Moles/Vol] 3.9 mmol/L 3.5 - 5.0 mmol/L [facility] Potassium [Moles/Vol] 3.9 mmol/L Normal 3.5-5.0 [facility] Comment on above: Order Comment: If po tassium level is less than or equal to 3.0 mmol/L, recheck potassium 4 hours after replacement. Performed By: #### M GO, CHM7, IPB, CKB, TRIG, LDO #### [facility] (DEFAULT) [address] [place] [address] PREPARE TO TRANSFUSE RED BLO OD CELLSon 05-07-2024 ABO[facility]RH(D) [facility] B[facility] COMPONENT TYPE Red Cells, Leukoreduced [facility] EXPIRATION DATE [facility] Product ABO/RH(D) ABPOS [facility] Product ABO/RH(D) NUMBER 8400 [facility] PRODUCT CODE [id number] [facility] UNIT NUMBER [id number] [facility] UNIT STATUS transfused [facility] ABO/RH(D) [facility] BLOOD COMPONENT TYPE Red Cells, Leukoreduced [facility] EXPIRATION DATE [facility] Product ABO/RH(D) [facility] Product ABO/RH(D) NUMBER 8400 [facility] PRODUCT CODE [id number] [facility] UNIT NUMBER [id number] [facility] UNIT STATUS transfused [facility] PT,INR,PTTon 05-07-2024 aPTT Coag (PPP) [Time] 35.2 s High OS [facility] INR Coag (Bld) [Relative time] 1.2 {INR} High 0.9 - 1.1 [facility] Interpretation and review of laboratory results Abnormal [facility] PT Coag (PPP) [Time] 14.8 s High [facility] aPTT Coag (Bld) [Time] 35.2 s High 24.0-34.[address] [facility] Comment on above: Performed By: #### G ASVL #### [facility] (DEFAULT) [address] [place] [address] 07017 INR Coag (PPP) [Relative time] 1.2 {INR} High 0.9-1.1 [facility] Comment on above: Performed By: #### G ASVL #### [facility] (DEFAULT) [address] [place] [address] 99942 PT Coag (PPP) [Time] 14.8 s High 11.9-14.2 [facility] Comment on above: Performed By: #### G ASVL #### [facility] (DEFAULT) [address] [place] [address] 88333 Portable XR Chest Viewson RADIOLOGY RADIOLOGY [facility] Radiology Study observation (narrative) [facility] Portable XR Chest ViewsOrder ed By: Josy Arrington on 05-07-2024 [facility] Work Phone: RETICULOCYTESon 05-07-2024 Reticulocytes (Bld) [#/Vol] 0.0735 10*3/uL [facility] Reticulocytes/100 RBC (Bld) 3.75 % High 0.74 - 2.54 % [facility] Retic Absolute 0.0735 M/uL Normal 0.0324-0.1 142 [facility] Comment on above: Performed By: #### M OMER, CHM7, IPB, CKB, TRIG, LDO #### [facility] (DEFAULT) [address] [place] [address] 45908 Retic Count 3.75 % High 0.74-2.54 [facility] Comment on above: Performed By: #### M OMER, CHM7, IPB, CKB, TRIG, LDO #### [facility] (DEFAULT) [address] [place] [address] 08191 SCHISTOCYTESon 05-07-2024 Schistocytes LM Ql (Bld) Slide reviewed, no schistocytes seen [facility] BKR SCHISTOCYTES PATH Slide reviewed, no schistocytes seen Normal [facility] Comment on above: Performed By: #### M GO, CHM7, IPB, CKB, TRIG, LDO #### [facility] (DEFAULT) [address] [place] [address] TRIGLYCERIDEon 05-07-2024 Triglyceride [Mass/Vol] 152 mg/dL High NINF - 150 mg/dL [facility] Triglyceride [Mass/Vol] 152 mg/dL High <150 [facility] Comment on above: Order Comment: While on Propofol. Result Comment: [<15 0 mg/dL: Desirable] [150-199 mg/dL: Borderline] [200-499 mg/dL: High] [>500 mg/dL: Very High] Performed By: #### M GO, CHM7, IPB, CKB, TRIG, LDO #### [facility] (DEFAULT) [address] [place] [address] 25479 XR ABDOMEN 1 VIEW PORTABLEon 05-07-2024 XR ABDOMEN 1 VIEW PORTABLE EXAM: XR ABDOMEN 1 VIEW PORTABLE, 05/07/2024 06:03 AM COMPARISON: XR ABDOMEN 1 VIEW PORTABLE May 04, 2024 CLINICAL INDICATIONS: monitor ileus FINDINGS: Tubes: Urinary catheter in place. Gastric tube tip terminates in the expected region of the distal stomach. Bowel gas pattern: Improved ileus without residual dilated small bowel. No visible free air. Abnormal calcifications/Radiopacitie s: Right upper quadrant surgical clips. Intrauterine device projects within the pelvis. Bones: No acute abnormality. Other findings: None. IMPRESSION: Improved ileus without residual dilated small bowel. Normal [facility] XR Abdomen Single viewon RADIOLOGY RADIOLOGY [facility] Radiology Study observation (narrative) [facility] XR Abdomen Single viewOrdere d By: Trever Prather on 05-07-2024 [facility] XR CHEST 1 VIEW PORTABLEon 0 05-07-2024 XR CHEST 1 VIEW PORTABLE EXAM: XR CHEST 1 VIEW PORTABLE, 05/07/2024 08:49 AM COMPARISON: May 05, 2024 CLINICAL INDICATIONS: R/o substernal creptius RELEVANT CLINICAL HISTORY: FINDINGS: (Adequate technique) Right IJ CVC is removed. Remaining support devices are stable. No evidence for pneumomediastinum or subcutaneous gas on radiograph. No pneumothorax. Dense bibasilar opacities compatible with atelectasis. Normal heart size. No acute bone findings. IMPRESSION: No evidence of pneumomediastinum or subcutaneous gas on radiograph. Normal [facility] ANTI XA HEPARIN (UNFRACTIONA EVANS)Ordered By: Alice Garivn on 05-06-2024 Heparin anti Xa Qn (Nonbiological fluid) Low [facility] Interpretation and review of laboratory results Abnormal [facility] ANTI XA HEPARIN (UNFRACTIONA EVANS)on 05-06-2024 Anti Xa Heparin (Unfractionated) <0.10 Low 0.30-0.70 [facility] Comment on above: Performed By: #### T YPEC #### [facility] (DEFAULT) [address] [place] [address] BASIC METABOLIC PANELon 04-08 Anion gap [Moles/Vol] 14 mmol/L 7 - 17 mmol/L [facility] Calcium [Mass/Vol] 7.4 mg/dL Low 8.6 - 10. 5 mg/dL [facility] Chloride [Moles/Vol] 104 mmol/L 98 - 10 8 mmol/L [facility] CO2 [Moles/Vol] 24 mmol/L 21 - 31 mmol/L [facility] Creatinine [Mass/Vol] 2.5 mg/dL High 0.50 - 1.20 mg/dL [facility] eGFR, CKD-EPI, Female 19 Low - PINF [facility] Glucose [Mass/Vol] 94 mg/dL 70 - 99 mg/dL [facility] Interpretation and review of laboratory results Abnormal [facility] Osmolality Calc [Osmolality] 294 [facility] Potassium [Moles/Vol] 4.1 mmol/L 3.5 - 5.0 mmol/L [facility] Sodium [Moles/Vol] 138 mmol/L 135 - 145 mmol/L [facility] Urea nitrogen [Mass/Vol] 28 mg/dL High 7 - 25 mg/dL [facility] Urea nitrogen/Creatinine [Mass ratio] 11 mg/mg [facility] Anion gap [Moles/Vol] 14 mmol/L Normal 7-17 [facility] Comment on above: Performed By: #### M GO, CHM7, IPB, CKB, TRIG, LDO #### [facility] (DEFAULT) [address] [place] [address] 61258 Calcium [Mass/Vol] 7.4 mg/dL Low 8.6-10.5 [facility] Comment on above: Performed By: #### M GO, CHM7, IPB, CKB, TRIG, LDO #### [facility] (DEFAULT) [address] [place] [address] 47760 Chloride [Moles/Vol] 104 mmol/L Normal 98-108 [facility] Comment on above: Performed By: #### M GO, CHM7, IPB, CKB, TRIG, LDO #### [facility] (DEFAULT) [address] [place] [address] 89541 CO2 [Moles/Vol] 24 mmol/L Normal 21-31 [facility] Comment on above: Performed By: #### M GO, CHM7, IPB, CKB, TRIG, LDO #### [facility] (DEFAULT) [address] [place] [address] 01240 Creatinine [Mass/Vol] 2.50 mg/dL High 0.50-1.20 [facility] Comment on above: Performed By: #### M GO, CHM7, IPB, CKB, TRIG, LDO #### [facility] (DEFAULT) [address] [place] [address] 25380 GFR/1.73 sq M.predicted among non-blacks MDRD (S/P/Bld) [Vol rate/Area] 19 mL/min/{1.73_m2} Low >=60 [facility] Comment on above: Result Comment: Repo rted eGFR is based on the CKD-EPI 2020 equation using creatinine, age, and sex. Performed By: #### M GO, CHM7, IPB, CKB, TRIG, LDO #### [facility] (DEFAULT) [address] [place] [address] 79065 Glucose [Mass/Vol] 94 mg/dL Normal 70-99 [facility] Comment on above: Performed By: #### M GO, CHM7, IPB, CKB, TRIG, LDO #### [facility] (DEFAULT) [address] [place] [address] 75049 Osmolality [Osmolality] 294 mosm/kg Normal 278-305 [facility] Comment on above: Performed By: #### M GO, CHM7, IPB, CKB, TRIG, LDO #### [facility] (DEFAULT) [address] [place] [address] 86447 Potassium [Moles/Vol] 4.1 mmol/L Normal 3.5-5.0 [facility] Comment on above: Performed By: #### M GO, CHM7, IPB, CKB, TRIG, LDO #### [facility] (DEFAULT) [address] [place] [address] 06190 Sodium [Moles/Vol] 138 mmol/L Normal 135-145 [facility] Comment on above: Performed By: #### M GO, CHM7, IPB, CKB, TRIG, LDO #### [facility] (DEFAULT) [address] [place] [address] 62020 Urea nitrogen [Mass/Vol] 28 mg/dL High 7-25 [facility] Comment on above: Performed By: #### M GO, CHM7, IPB, CKB, TRIG, LDO #### [facility] (DEFAULT) [address] [place] [address] 81453 Urea nitrogen/Creatinine [Mass ratio] 11 mg/mg Normal [facility] Comment on above: Performed By: #### ROXY ROA, IPB, CKB, TRIG, LDO #### [facility] (DEFAULT) [address] [place] [address] CBC W/Diff, Automatedon - PATH REV Reviewed Normal [facility] Comment on above: Result Comment: THE PERIPHERAL SMEAR SHOWS A NORMOCHROMIC NORMOCYTIC ANEMIA.PLATELETS ARE SLIGHTLY LOW IN NUMBER AND NORMAL IN FORM.THERE IS A LEUKOCYTOSIS WITH INCREASED NEUOTROPHILS. THIS ISOFTEN DUE TO A REACTIVE PROCESS.Mehdi Miller M.D. 05/06/24 AMENDED REPORT 05/06/24 1000 PATH REV previously reported as: Reviewed Performed By: #### L 100.0100, L501.5200, L500.2500, L501.2300 ####[facility] [id number] [place], [address] CBC,PLATELETSOrdered By: Vinnie Acevedo on 05-06-2024 RBC (Bld) [#/Vol] 2.21 10*6/uL Low [facility] CBC,PLATELETSon 05-06-2024 Hematocrit (Bld) [Volume fraction] 22.9 % Low 34.9-44.3 [facility] Comment on above: Performed By: #### ROXY ROA, MARGARETHB, CKB, TRIG, LDO #### [facility] (DEFAULT) [address] [place] [address] Hemoglobin (Bld) [Mass/Vol] 7.1 g/dL Low 11.4-15.2 [facility] Comment on above: Performed By: #### ROXY ROA, IPB, CKB, TRIG, LDO #### [facility] (DEFAULT) [address] [place] [address] MCV (RBC) [Entitic vol] 103.6 fL High 79.6-97.7 [facility] Comment on above: Result Comment: Resu lts inconsistent with previous results Performed By: #### M GO, CHM7, IPB, CKB, TRIG, LDO #### [facility] (DEFAULT) [address] [place] [address] 30318 Mean Cell Hgb 32.1 pg Normal 25.9-33.9 [facility] Comment on above: Performed By: #### M GO, CHM7, IPB, CKB, TRIG, LDO #### [facility] (DEFAULT) [address] [place] [address] 46498 Mean Cell Hgb Conc 31.0 g/dL Low 31.4-35.9 [facility] Comment on above: Performed By: #### M GO, CHM7, IPB, CKB, TRIG, LDO #### [facility] (DEFAULT) [address] [place] [address] 40453 Mean Platelet Volume Normal [facility] Comment on above: Result Comment: Not measured Performed By: #### M GO, CHM7, IPB, CKB, TRIG, LDO #### [facility] (DEFAULT) [address] [place] [address] 07701 Platelets (Bld) [#/Vol] 90 10*3/uL Low 150-393 [facility] Comment on above: Result Comment: Plat elet clumps noted on smear. Reported instrument value is acceptable This is an appended report. These results have been appended to a previously preliminary verified report. Performed By: #### M GO, CHM7, IPB, CKB, TRIG, LDO #### [facility] (DEFAULT) [address] [place] [address] 73656 RBC (Bld) [#/Vol] 2.21 10*6/uL Low 3.91-5.04 [facility] Comment on above: Performed By: #### M GO, CHM7, IPB, CKB, TRIG, LDO #### [facility] (DEFAULT) [address] [place] [address] 37417 RBC Distribution 16.9 % High 10.8-14.9 [facility] Comment on above: Performed By: #### M GO, CHM7, IPB, CKB, TRIG, LDO #### [facility] (DEFAULT) [address] [place] [address] 69420 WBC (Bld) [#/Vol] 19.33 10*3/uL High 3.99-11.19 [facility] Comment on above: Performed By: #### M GO, CHM7, IPB, CKB, TRIG, LDO #### [facility] (DEFAULT) [address] [place] [address] 88612 CHEM 7 (LYTES,BUN,CREA,GLUC) on 05-06-2024 Anion gap [Moles/Vol] 13 mmol/L Normal 7-17 [facility] Comment on above: Performed By: #### M GO, CHM7, IPB, CKB, TRIG, LDO #### [facility] (DEFAULT) [address] [place] [address] 46704 Chloride [Moles/Vol] 107 mmol/L Normal 98-108 [facility] Comment on above: Performed By: #### M GO, CHM7, IPB, CKB, TRIG, LDO #### [facility] (DEFAULT) [address] [place] [address] 68853 CO2 [Moles/Vol] 21 mmol/L Normal 21-31 [facility] Comment on above: Performed By: #### M GO, CHM7, IPB, CKB, TRIG, LDO #### [facility] (DEFAULT) [address] [place] [address] 49953 Creatinine [Mass/Vol] 3.60 mg/dL High 0.50-1.20 [facility] Comment on above: Performed By: #### M GO, CHM7, IPB, CKB, TRIG, LDO #### [facility] (DEFAULT) [address] [place] [address] 60438 GFR/1.73 sq M.predicted among non-blacks MDRD (S/P/Bld) [Vol rate/Area] 12 mL/min/{1.73_m2} Low >=60 [facility] Comment on above: Result Comment: Repo rted eGFR is based on the CKD-EPI 2020 equation using creatinine, age, and sex. Performed By: #### M GO, CHM7, IPB, CKB, TRIG, LDO #### [facility] (DEFAULT) [address] [place] [address] 66550 Glucose [Mass/Vol] 90 mg/dL Normal 70-99 [facility] Comment on above: Performed By: #### M GO, CHM7, IPB, CKB, TRIG, LDO #### [facility] (DEFAULT) [address] [place] [address] 29685 Osmolality [Osmolality] 301 mosm/kg Normal 278-305 [facility] Comment on above: Performed By: #### M GO, CHM7, IPB, CKB, TRIG, LDO #### [facility] (DEFAULT) [address] [place] [address] 59117 Potassium [Moles/Vol] 4.1 mmol/L Normal 3.5-5.0 [facility] Comment on above: Performed By: #### M GO, CHM7, IPB, CKB, TRIG, LDO #### [facility] (DEFAULT) [address] [place] [address] 77597 Sodium [Moles/Vol] 137 mmol/L Normal 135-145 [facility] Comment on above: Performed By: #### M GO, CHM7, IPB, CKB, TRIG, LDO #### [facility] (DEFAULT) [address] [place] [address] 60958 Urea nitrogen [Mass/Vol] 52 mg/dL High 7-25 [facility] Comment on above: Performed By: #### M GO, CHM7, IPB, CKB, TRIG, LDO #### [facility] (DEFAULT) [address] [place] [address], [place] [address] Urea nitrogen/Creatinine [Mass ratio] 14 mg/mg Normal [facility] Comment on above: Performed By: #### M GO, CHM7, IPB, CKB, TRIG, LDO #### [facility] (DEFAULT) [address] [place] [address] CRYPTOCOCCUS, ANTIGEN CSFOrd ered By: Raheem Castorena on 05-06-2024 Cryptococcus sp Ag Ql (CSF) Negative Negative [facility] Interpretation and review of laboratory results Normal [facility] CSF DIFFERENTIALOrdered By: Ramon Kennedy on 05-06-2024 Basophils/100 WBC Manual cnt (CSF) 0 % [facility] Work Phone: Cells Counted Total (CSF) [#] 100 [facility] Work Phone: Eosinophils/100 WBC Manual cnt (CSF) 0 % [facility] Work Phone: Interpretation and review of laboratory results Abnormal [facility] Work Phone: Lymphocytes/100 WBC Manual cnt (CSF) 90 % High 40 - 80 % [facility] Work Phone: Monocytes+Macrophages/ 100 WBC (CSF) 6 % Low 15 - 45 % [facility] Work Phone: Neutrophils/100 WBC Manual cnt (CSF) 4 % NINF - 6 % [facility] Work Phone: Pathologist review Janes (Unsp spec) [Interp] Ramon Kennedy MD [facility] Work Phone: Pathology report comments [Interpretation] Narrative v9fwvVEfDUZfuYYiLNuqGvogfcI pSIDybIVqU3DvfoemLOjiWO4sTL 9cwOzylCBvbJWfEXUzRhVao5vbf 306uBAgk6leNJRSVMfvNYAUHDk5 kDhrM12gt5I3RfiiE53ukQWgTUB 5NFRtYMQwqJTmGKKiCXV9GHIoqM WvQ1qdPBDaNB1wwscvONcnEIhbS UDkePZ3TULoqBPtL8TxYXAiQKrw UECvsrm2ExDhZd3qqAXxcJbiMNn wYXJkXHBsYWluXGZzMjBccHJvdG TlzXoyQesmmCQ2UUwxGsqdjU4qq QXCGHDDZstFYnqgioEbDD9SJPMX SuKVET50EkX8ImX4PAtbjOpcSgl zkfWmlTBnTxYkeJ6MnmE6jlJvfF n7b3JqkKKfbmmonekgeXZnc5Ots l1lLACvc69uNHwvCLVrJKPphtCz IEFjdXRlIGFuZCBjaHJvbmljIGl nHyijbY1ujD3upZWkRCbwpuIben ThXJ18LeRvM31pxvFgKTSri89io 5n1gLYacmZoNUA7NYxeQDXeKPPj gJb6nOAnFPVhF48xwGCaYXWbQmv dXseflLO9JBdnEtgrwM2dfDPPFF TPXryCEsharhAyEQ4BNCXDWB2Hw QGtGzHwrLU4JS63CVEyEQWiaEZl DSkbQ738DAQpDRgqDAWhVbCxcIT hLANempMahETsVFUjT09HAwXBRJ HON13EMRLNYYKTJ9TDK8wWXHOgD lMjwTK2HXNuHswdLyfuIRhhE49X ZiFGBRBDZ87WPAMDMTHOM7OONNM CASsBP4NWEJ0HZEEYCNYLFV6SRY mXYaBOYXvWQ7CBUB9ANCVZULKEH G6PSoXjBOeWY8ZFP2hBEISiKYIU WMNUEMHxRbGWJT3yTUl6HOkxDOJ sMIchEae9qLDrW29mGUI9JaC6Su ZxiJDCAAYOHCeNRJAAYg5JLTDZG EFETQ2XNjJxR0OEJU6MDc2ZLJTG QMNFXL3LDPiLNlEeS8GZSO0DPl3 DOODWZFYXTL7TIpKdEQPGP4KNAh RZH8hsNLFSYBQMPEBbMjZZSS3tM IUCYG6PDNJCRXEGG91LBENRJSBI H2LYKZ7= [facility] Work Phone: Tube number Nom (CSF) [ID] CSF TUBE 4 [facility] Work Phone: [facility] Work Phone: Culture, Blood (WB)on 2024 CUB LEFT UPPER ARM Blood cultures x2, from two different sites No growth in 5 days. Normal [facility] Comment on above: Performed By: #### M 200.1000, L500.4050, L503.6005, L100.0100, L300.3900 ####[facility] [address] [place], [address] FIBRINOGEN, CLOTTABLEon 04-08 Fibrinogen-Clottable 502 mg/dL High 220-410 [facility] Comment on above: Order Comment: Fibr inogen levels may be altered by the normal physiologic changes of and should be interpreted considering reference ranges specific to gestational age.First Trimester: 244-510 mg/dLSecond Trimester: 291-538 mg/dLThird Trimester/: 373-619 mg/dLReference: Santiago M, Sarah LG, Anne FG. and laboratory studies: a reference table for clinicians. Obstet Gynecol 2009; 114:1326. Result Comment: Func tional Fibrinogen (activity) levels can be affected by direct thrombin inhibitors such as heparins (>2.0 IU/ml) and dabigatran. Abnormal results should be interpreted with caution. Performed By: #### R ES #### [facility] (DEFAULT) [address] [place] [address] 43010 IONIZED CALCIUM, WHOLE BLOOD on 05-06-2024 ICA 4.02 mg/dL Low 4.60-5.30 [facility] Comment on above: Performed By: #### M GO, CHM7, IPB, CKB, TRIG, LDO #### [facility] (DEFAULT) [address] [place] [address] 28818 MAGNESIUMon 05-06-2024 Magnesium [Mass/Vol] 1.9 mg/dL 1.6 - 2 .6 mg/dL [facility] Magnesium [Mass/Vol] 1.9 mg/dL Normal 1.6-2.6 [facility] Comment on above: Performed By: #### M GO, CHM7, IPB, CKB, TRIG, LDO #### [facility] (DEFAULT) [address] [place] [address] 23329 Magnesium [Mass/Vol] 2.2 mg/dL Normal 1.6-2.6 [facility] Comment on above: Performed By: #### M GO, CHM7, IPB, CKB, TRIG, LDO #### [facility] (DEFAULT) [address] [place] [address] 60859 MR Brain WO and W contrast I Von 05-06-2024 Radiology Study observation (narrative) [facility] MRI PLAIN FILM FOR NEURO EXA 05-06-2024 MRI PLAIN FILM FOR NEURO EXAM EXAM: MRI PLAIN FILM FOR NEURO EXAM, 05/06/2024 17:40 PM COMPARISON: No priors available for comparison.. CLINICAL INDICATIONS: 83 years Female MRI clearance RELEVANT CLINICAL HISTORY: AP pelvis; FINDINGS: Radiograph(s) of the pelvis were obtained as part of safety screening prior to an MRI examination. No radiopaque foreign bodies or implants are seen that would preclude an MRI examination. Intrauterine contraceptive device in place. IMPRESSION: No radiopaque foreign bodies to preclude MRI. Intrauterine contraceptive device in place. Normal [facility] RADIOLOGY RADIOLOGY [facility] Radiology Study observation (narrative) [facility] MRI PLAIN FILM FOR NEURO EXA MOrdered By: Earlene Wylie on 05-06-2024 [facility] Work Phone: No Panel Informationon 05-06 Interpretation and review of laboratory results Normal [facility] PHOSPHATE, INORGANICon 05-06 Phosphate [Mass/Vol] 4 mg/dL 2.2 - 4 .6 mg/dL [facility] Phosphorous 4.0 mg/dL Normal 2.2-4.6 [facility] Comment on above: Performed By: #### M GO, CHM7, IPB, CKB, TRIG, LDO #### [facility] (DEFAULT) [address] [place] [address] 22853 Phosphorous 5.2 mg/dL High 2.2-4.6 [facility] Comment on above: Performed By: #### M GO, CHM7, IPB, CKB, TRIG, LDO #### [facility] (DEFAULT) [address] [place] [address] 56449 ARTERIAL BLOOD GASon 025 Base Excess -4.0 mmol/L Low -3.0-3.0 [facility] Comment on above: Order Comment: For O pti-Oxygen Performed By: #### M GO, CHM7, IPB, CKB, TRIG, LDO #### [facility] (DEFAULT) [address] [place] [address] 12271 FIO2 30 % Normal [facility] Comment on above: Order Comment: For O pti-Oxygen Result Comment: vent Performed By: #### M GO, CHM7, IPB, CKB, TRIG, LDO #### [facility] (DEFAULT) [address] [place] [address] 91953 HCO3 (Bld) [Moles/Vol] 20 mmol/L Low 22-28 [facility] Comment on above: Order Comment: For O pti-Oxygen Performed By: #### M GO, CHM7, IPB, CKB, TRIG, LDO #### [facility] (DEFAULT) [address] [place] [address] 69581 Oxygen saturation in Blood 98 % Normal 94-98 [facility] Comment on above: Order Comment: For O pti-Oxygen Performed By: #### M GO, CHM7, IPB, CKB, TRIG, LDO #### [facility] (DEFAULT) [address] [place] [address] 75885 pCO2 27 mm Hg Low 32-48 [facility] Comment on above: Order Comment: For O pti-Oxygen Performed By: #### M GO, CHM7, IPB, CKB, TRIG, LDO #### [facility] (DEFAULT) [address] [place] [address] 15833 PF Ratio 397 Normal [facility] Comment on above: Order Comment: For O pti-Oxygen Performed By: #### M GO, CHM7, IPB, CKB, TRIG, LDO #### [facility] (DEFAULT) [address] [place] [address] 17296 pH, Arterial 7.47 High 7.35-7.45 [facility] Comment on above: Order Comment: For O pti-Oxygen Performed By: #### M GO, CHM7, IPB, CKB, TRIG, LDO #### [facility] (DEFAULT) [address] [place] [address] 00620 pO2 119 mm Hg High 83-108 [facility] Comment on above: Order Comment: For O pti-Oxygen Performed By: #### M GO, CHM7, IPB, CKB, TRIG, LDO #### [facility] (DEFAULT) [address] [place] [address] 87724 Specimen type Nom (Spec) Arterial Normal [facility] Comment on above: Order Comment: For O pti-Oxygen Performed By: #### M GO, CHM7, IPB, CKB, TRIG, LDO #### [facility] (DEFAULT) [address] [place] [address] 36118 BLOOD CULTUREon 05-05-2024 Bacteria identified Cx Nom (Unsp spec) NO GROWTH DAY 5 OF 5 Normal [facility] Comment on above: Order Comment: 2 Bot tles (1 Set - consists of 1 Aerobic bottle and 1 Anaerobic bottle) -1st Peripheral DrawFor vacutainer method draw: Fill aerobic bottle first, then anaerobic Performed By: #### M GO, CHM7, IPB, CKB, TRIG, LDO #### [facility] (DEFAULT) [address] [place] [address] 30350 Bacteria identified Cx Nom (Unsp spec) NO GROWTH DAY 5 OF 5 Normal [facility] Comment on above: Order Comment: 2 Bot tles (1 Set - consists of 1 Aerobic bottle and 1 Anaerobic bottle) -1st Peripheral DrawFor vacutainer method draw: Fill aerobic bottle first, then anaerobic Performed By: #### M GO, CHM7, IPB, CKB, TRIG, LDO #### [facility] (DEFAULT) [address] [place] [address] 69016 BODY FLUID CULTURE AND DIREC T SMEARon 05-05-2024 Bacteria identified Cx Nom (Unsp spec) NO GROWTH DAY 2 OF 2 Normal [facility] Comment on above: Performed By: #### M GO, CHM7, IPB, CKB, TRIG, LDO #### [facility] (DEFAULT) [address] [place] [address] 46538 Microscopic observation Gram stain Nom (Unsp spec) Normal [facility] Comment on above: Result Comment: Cyto centrifuge preparation Neutrophils, Light Mononuclear cells present Red Blood Cells Present No organisms seen Final report, verified by Microbiology. Performed By: #### M GO, CHM7, IPB, CKB, TRIG, LDO #### [facility] (DEFAULT) [address] [place] [address] 98532 Basic Metabolic Profile (BMP )on 05-05-2024 BUN Normal 7-18 [facility] Comment on above: Result Comment: Canc elled via OM: Order cancelled - Patient discharged Performed By: #### L 100.0100, L500.2500 ####[facility] [address] [place], [address] BUN/CRE Normal 10-20 [facility] Comment on above: Result Comment: Canc elled via OM: Order cancelled - Patient discharged Performed By: #### L 100.0100, L500.2500 ####[facility] [address] [place], [address] CA,Total Normal 8.5-10.1 [facility] Comment on above: Result Comment: Canc elled via OM: Order cancelled - Patient discharged Performed By: #### L 100.0100, L500.2500 ####[facility] [address] [place], [address] CL Normal 98-107 [facility] Comment on above: Result Comment: Canc elled via OM: Order cancelled - Patient discharged Performed By: #### L 100.0100, L500.2500 ####[facility] [address] [place], [address] CO2 Normal 21.0-32.0 [facility] Comment on above: Result Comment: Canc elled via OM: Order cancelled - Patient discharged Performed By: #### L 100.0100, L500.2500 ####[facility] [address] [place], [address] CREAT,SERUM Normal 0.55-1.02 [facility] Comment on above: Result Comment: Canc elled via OM: Order cancelled - Patient discharged Performed By: #### L 100.0100, L500.2500 ####[facility] [address] [place], [address] EST GFR Normal >60 [facility] Comment on above: Result Comment: Canc elled via OM: Order cancelled - Patient discharged Performed By: #### L 100.0100, L500.2500 ####[facility] [address] [place], [address] EST GFR - AA Normal >60 [facility] Comment on above: Result Comment: Canc elled via OM: Order cancelled - Patient discharged Performed By: #### L 100.0100, L500.2500 ####[facility] [address] [place], [address] GAP Normal 5-15 [facility] Comment on above: Result Comment: Canc elled via OM: Order cancelled - Patient discharged Performed By: #### L 100.0100, L500.2500 ####[facility] [address] [place], [address] GLU Normal 74-106 [facility] Comment on above: Result Comment: Canc elled via OM: Order cancelled - Patient discharged Performed By: #### L 100.0100, L500.2500 ####[facility] [address] [place], [address] Potassium Normal 3.5-5.1 [facility] Comment on above: Result Comment: Canc elled via OM: Order cancelled - Patient discharged Performed By: #### L 100.0100, L500.2500 ####[facility] [address] [place], [address] Basic Metabolic Profile (BMP) Normal 136-145 [facility] Comment on above: Result Comment: Canc elled via OM: Order cancelled - Patient discharged Performed By: #### L 100.0100, L500.2500 ####[facility] [address] [place], [address] CBC W/Diff, Automatedon 04-08 Absolute Neut Normal 2.0-7.7 [facility] Comment on above: Result Comment: Canc elled via OM: Order cancelled - Patient discharged Performed By: #### L 100.0100, L500.2500 ####[facility] [address] [place], [address] HCT Normal 37-47 [facility] Comment on above: Result Comment: Canc elled via OM: Order cancelled - Patient discharged Performed By: #### L 100.0100, L500.2500 ####[facility] [address] [place], [address] HGB Normal 12.0-15.0 [facility] Comment on above: Result Comment: Canc elled via OM: Order cancelled - Patient discharged Performed By: #### L 100.0100, L500.2500 ####[facility] [address] [place], [address] MCH Normal 27.0-32.0 [facility] Comment on above: Result Comment: Canc elled via OM: Order cancelled - Patient discharged Performed By: #### L 100.0100, L500.2500 ####[facility] [address] [place], [address] MCHC Normal 32-36 [facility] Comment on above: Result Comment: Canc elled via OM: Order cancelled - Patient discharged Performed By: #### L 100.0100, L500.2500 ####[facility] [address] [place], [address] MCV Normal 81-99 [facility] Comment on above: Result Comment: Canc elled via OM: Order cancelled - Patient discharged Performed By: #### L 100.0100, L500.2500 ####[facility] [address] [place], [address] NEUT% Normal 47-70 [facility] Comment on above: Result Comment: Canc elled via OM: Order cancelled - Patient discharged Performed By: #### L 100.0100, L500.2500 ####[facility] [address] [place], [address] PLT Normal 150-450 [facility] Comment on above: Result Comment: Canc elled via OM: Order cancelled - Patient discharged Performed By: #### L 100.0100, L500.2500 ####[facility] [address] [place], [address] RBC Normal 4.2-5.4 [facility] Comment on above: Result Comment: Canc elled via OM: Order cancelled - Patient discharged Performed By: #### L 100.0100, L500.2500 ####[facility] [address] [place], [address] RDW CV Normal 11.6-14.6 [facility] Comment on above: Result Comment: Canc elled via OM: Order cancelled - Patient discharged Performed By: #### L 100.0100, L500.2500 ####[facility] [address] [place], [address] RDW SD Normal 35.1-43.9 [facility] Comment on above: Result Comment: Canc elled via OM: Order cancelled - Patient discharged Performed By: #### L 100.0100, L500.2500 ####[facility] [address] [place], [address] WBC Normal 4.4-11.0 [facility] Comment on above: Result Comment: Canc elled via OM: Order cancelled - Patient discharged Performed By: #### L 100.0100, L500.2500 ####[facility] [address] [place], [address] CBC,PLATELETSon 05-05-2024 Hematocrit (Bld) [Volume fraction] 24.3 % Low 34.9-44.3 [facility] Comment on above: Performed By: #### M GO, CHM7, IPB, CKB, TRIG, LDO #### [facility] (DEFAULT) [address] [address] Hemoglobin (Bld) [Mass/Vol] 7.9 g/dL Low 11.4-15.2 [facility] Comment on above: Performed By: #### M GO, CHM7, IPB, CKB, TRIG, LDO #### [facility] (DEFAULT) [address] [place] [address] 11685 MCV (RBC) [Entitic vol] 98.4 fL High 79.6-97.7 [facility] Comment on above: Performed By: #### M GO, CHM7, IPB, CKB, TRIG, LDO #### [facility] (DEFAULT) [address] [place] [address] 76754 Mean Cell Hgb 32.0 pg Normal 25.9-33.9 [facility] Comment on above: Performed By: #### M GO, CHM7, IPB, CKB, TRIG, LDO #### [facility] (DEFAULT) [address] [place] [address] 34306 Mean Cell Hgb Conc 32.5 g/dL Normal 31.4-35.9 [facility] Comment on above: Performed By: #### M GO, CHM7, IPB, CKB, TRIG, LDO #### [facility] (DEFAULT) [address] [place] [address] 72206 Platelet mean volume (Bld) [Entitic vol] 12.1 fL Normal 8.5-12.2 [facility] Comment on above: Performed By: #### M GO, CHM7, IPB, CKB, TRIG, LDO #### [facility] (DEFAULT) [address] [place] [address] 51713 Platelets (Bld) [#/Vol] 83 10*3/uL Low 150-393 [facility] Comment on above: Performed By: #### M GO, CHM7, IPB, CKB, TRIG, LDO #### [facility] (DEFAULT) [address] [place] [address] 16475 RBC (Bld) [#/Vol] 2.47 10*6/uL Low 3.91-5.04 [facility] Comment on above: Performed By: #### M GO, CHM7, IPB, CKB, TRIG, LDO #### [facility] (DEFAULT) [address] [place] [address] 85422 RBC Distribution 16.6 % High 10.8-14.9 [facility] Comment on above: Performed By: #### M GO, CHM7, IPB, CKB, TRIG, LDO #### [facility] (DEFAULT) [address] [place] [address] 12270 WBC (Bld) [#/Vol] 16.19 10*3/uL High 3.99-11.19 [facility] Comment on above: Performed By: #### M GO, CHM7, IPB, CKB, TRIG, LDO #### [facility] (DEFAULT) [address] [place] [address] 64215 CHEM 7 (LYTES,BUN,CREA,GLUC) on 05-05-2024 Anion gap [Moles/Vol] 13 mmol/L Normal 7-17 [facility] Comment on above: Performed By: #### M GO, CHM7, IPB, CKB, TRIG, LDO #### [facility] (DEFAULT) [address] [place] [address] 99178 Chloride [Moles/Vol] 105 mmol/L Normal 98-108 [facility] Comment on above: Performed By: #### M GO, CHM7, IPB, CKB, TRIG, LDO #### [facility] (DEFAULT) [address] [place] [address] 72453 CO2 [Moles/Vol] 22 mmol/L Normal 21-31 [facility] Comment on above: Performed By: #### M GO, CHM7, IPB, CKB, TRIG, LDO #### [facility] (DEFAULT) [address] [place] [address] 68666 Creatinine [Mass/Vol] 3.42 mg/dL High 0.50-1.20 [facility] Comment on above: Performed By: #### M GO, CHM7, IPB, CKB, TRIG, LDO #### [facility] (DEFAULT) [address] [place] [address] 50323 GFR/1.73 sq M.predicted among non-blacks MDRD (S/P/Bld) [Vol rate/Area] 13 mL/min/{1.73_m2} Low >=60 [facility] Comment on above: Result Comment: Repo rted eGFR is based on the CKD-EPI 2020 equation using creatinine, age, and sex. Performed By: #### M GO, CHM7, IPB, CKB, TRIG, LDO #### [facility] (DEFAULT) [address] [place] [address] 17239 Glucose [Mass/Vol] 88 mg/dL Normal 70-99 [facility] Comment on above: Performed By: #### M GO, CHM7, IPB, CKB, TRIG, LDO #### [facility] (DEFAULT) [address] [place] [address] 27191 Osmolality [Osmolality] 299 mosm/kg Normal 278-305 [facility] Comment on above: Performed By: #### M GO, CHM7, IPB, CKB, TRIG, LDO #### [facility] (DEFAULT) [address] [place] [address] 54414 Potassium [Moles/Vol] 4.3 mmol/L Normal 3.5-5.0 [facility] Comment on above: Performed By: #### M GO, CHM7, IPB, CKB, TRIG, LDO #### [facility] (DEFAULT) [address] [place] [address] 23948 Sodium [Moles/Vol] 136 mmol/L Normal 135-145 [facility] Comment on above: Performed By: #### M GO, CHM7, IPB, CKB, TRIG, LDO #### [facility] (DEFAULT) [address] [place] [address] 74122 Urea nitrogen [Mass/Vol] 51 mg/dL High 7-25 [facility] Comment on above: Performed By: #### M GO, CHM7, IPB, CKB, TRIG, LDO #### [facility] (DEFAULT) [address] [place] [address] 77619 Urea nitrogen/Creatinine [Mass ratio] 15 mg/mg Normal [facility] Comment on above: Performed By: #### M GO, CHM7, IPB, CKB, TRIG, LDO #### [facility] (DEFAULT) [address] [place] [address] 08906 Anion gap [Moles/Vol] 13 mmol/L Normal 7-17 [facility] Comment on above: Performed By: #### M GO, CHM7, IPB, CKB, TRIG, LDO #### [facility] (DEFAULT) [address] [place] [address] 51169 Chloride [Moles/Vol] 105 mmol/L Normal 98-108 [facility] Comment on above: Performed By: #### M GO, CHM7, IPB, CKB, TRIG, LDO #### [facility] (DEFAULT) [address] [place] [address] 28939 CO2 [Moles/Vol] 22 mmol/L Normal 21-31 [facility] Comment on above: Performed By: #### M GO, CHM7, IPB, CKB, TRIG, LDO #### [facility] (DEFAULT) [address] [place] [address] 43247 Creatinine [Mass/Vol] 3.49 mg/dL High 0.50-1.20 [facility] Comment on above: Performed By: #### M GO, CHM7, IPB, CKB, TRIG, LDO #### [facility] (DEFAULT) [address] [place] [address] 34061 GFR/1.73 sq M.predicted among non-blacks MDRD (S/P/Bld) [Vol rate/Area] 13 mL/min/{1.73_m2} Low >=60 [facility] Comment on above: Result Comment: Repo rted eGFR is based on the CKD-EPI 2020 equation using creatinine, age, and sex. Performed By: #### M GO, CHM7, IPB, CKB, TRIG, LDO #### [facility] (DEFAULT) [address] [place] [address] 69808 Glucose [Mass/Vol] 95 mg/dL Normal 70-99 [facility] Comment on above: Performed By: #### M GO, CHM7, IPB, CKB, TRIG, LDO #### [facility] (DEFAULT) [address] [place] [address] 68248 Osmolality [Osmolality] 299 mosm/kg Normal 278-305 [facility] Comment on above: Performed By: #### M GO, CHM7, IPB, CKB, TRIG, LDO #### [facility] (DEFAULT) [address] [place] [address] 90628 Potassium [Moles/Vol] 4.3 mmol/L Normal 3.5-5.0 [facility] Comment on above: Performed By: #### M GO, CHM7, IPB, CKB, TRIG, LDO #### [facility] (DEFAULT) [address] [place] [address] 01496 Sodium [Moles/Vol] 136 mmol/L Normal 135-145 [facility] Comment on above: Performed By: #### M GO, CHM7, IPB, CKB, TRIG, LDO #### [facility] (DEFAULT) [address] [place] [address] 27657 Urea nitrogen [Mass/Vol] 50 mg/dL High 7-25 [facility] Comment on above: Performed By: #### M GO, CHM7, IPB, CKB, TRIG, LDO #### [facility] (DEFAULT) [address] [place] [address] 72369 Urea nitrogen/Creatinine [Mass ratio] 14 mg/mg Normal [facility] Comment on above: Performed By: #### M GO, CHM7, IPB, CKB, TRIG, LDO #### [facility] (DEFAULT) [address] [place] [address] 36077 CKon 05-05-2024 CK [Catalytic activity/Vol] 224 U/L High 30-184 [facility] Comment on above: Order Comment: While on Propofol. Performed By: #### M GO, CHM7, IPB, CKB, TRIG, LDO #### [facility] (DEFAULT) [address] [place] [address] 40106 CRYPTOCOCCUS, ANTIGEN CSFon 05-05-2024 Cryptococcus Ag, CSF Negative Normal Negative [facility] Comment on above: Performed By: #### F CRAG #### [facility] (DEFAULT) [address] [place] [address] 26307 CSF DIFFERENTIALon Basophils (Csf) 0 % Normal [facility] Comment on above: Result Comment: The reference range has not been established for this parameter for this fluid. Clinical correlation is recommended. Performed By: #### M GO, CHM7, IPB, CKB, TRIG, LDO #### [facility] (DEFAULT) [address] [place] [address] 96177 Cells Counted (CSF) 100 Normal [facility] Comment on above: Performed By: #### M GO, CHM7, IPB, CKB, TRIG, LDO #### [facility] (DEFAULT) [address] [place] [address] 87095 Comment (Csf) Normal [facility] Comment on above: Result Comment: No u nequivocal organisms seen. Blood is present. Acute and chronic inflammatory cells present. Correlation with gram stain and culture recommended. Performed By: #### M GO, CHM7, IPB, CKB, TRIG, LDO #### [facility] (DEFAULT) [address] [place] [address] 51392 Differential Reviewed By Ramon Kennedy MD Normal [facility] Comment on above: Performed By: #### M GO, CHM7, IPB, CKB, TRIG, LDO #### [facility] (DEFAULT) [address] [place] [address] 93495 Eosinophils (Csf) 0 % Normal [facility] Comment on above: Result Comment: The reference range has not been established for this parameter for this fluid. Clinical correlation is recommended. Performed By: #### M GO, CHM7, IPB, CKB, TRIG, LDO #### [facility] (DEFAULT) [address] [place] [address] [phone] Lymphocytes (Csf) 90 % High 40-80 [facility] Comment on above: Performed By: #### M GO, CHM7, IPB, CKB, TRIG, LDO #### [facility] (DEFAULT) [address] [place] [address] 92182 Monocytes/Macrophages, CSF 6 % Low 15-45 [facility] Comment on above: Performed By: #### M GO, CHM7, IPB, CKB, TRIG, LDO #### [facility] (DEFAULT) [address] [place] [address] 51152 Neutrophils (Csf) 4 % Normal <=6 [facility] Comment on above: Performed By: #### M GO, CHM7, IPB, CKB, TRIG, LDO #### [facility] (DEFAULT) [address] [place] [address] 87805 CSF FLUID COUNT ONLYon 05-05 CSF Tube Number CSF TUBE 4 Normal [facility] Comment on above: Performed By: #### M GO, CHM7, IPB, CKB, TRIG, LDO #### [facility] (DEFAULT) [address] [place] [address] 57480 Gross Appearance (Csf) Normal [facility] Comment on above: Result Comment: Zuri Siddiqui Performed By: #### M GO, CHM7, IPB, CKB, TRIG, LDO #### [facility] (DEFAULT) [address] [place] [address] 14921 RBC (Bld) [#/Vol] 0.89307 10*6/uL High <3 [facility] Comment on above: Performed By: #### M GO, CHM7, IPB, CKB, TRIG, LDO #### [facility] (DEFAULT) [address] [place] [address] 38455 Supernatant (Csf) Not Indicated Normal [facility] Comment on above: Performed By: #### M GO, CHM7, IPB, CKB, TRIG, LDO #### [facility] (DEFAULT) [address] [place] [address] 73500 Total Nucleated Cells (TNC CSF) 7 /uL High <6 [facility] Comment on above: Performed By: #### M GO, CHM7, IPB, CKB, TRIG, LDO #### [facility] (DEFAULT) [address] [place] [address] HEAD WITHOUT CONTRASTon 0 05-05-2024 CT HEAD WITHOUT CONTRAST EXAM: CT HEAD WITHOUT CONTRAST, 05/05/2024 2:16 AM COMPARISON: No priors available for comparison. CLINICAL INDICATIONS: 83 years Female seizure TECHNIQUE: A series of transaxial computerized tomographic images are obtained from base of skull to vertex without intravenous contrast. Axial whole-head and thin section posterior fossa slices are provided. Reformats: Sagittal and coronal. FINDINGS: Examination is mildly degraded due to streak artifact from EEG leads. Powers-white matter differentiation is preserved. No acute large territory infarction is seen. Patchy white matter hypoattenuation, nonspecific although commonly associated with chronic small vessel ischemic change. No acute intracranial hemorrhage is seen. No significant mass effect or midline shift. Ventricles are normal in size and configuration for patient age. Skull appears intact. Evidence of prior left cataract surgery. Intubated sinus disease. Right mastoid air cells are opacified. Atherosclerotic calcifications of the major arteries at the skull base are noted. IMPRESSION: No acute cranial abnormality. Normal [facility] DIALYSIS HEP PANEL-CHRONICon 05-05-2024 Hep B Core Ab,Total (IgG+IgM) Negative Normal Negative [facility] Comment on above: Performed By: #### F CRAG #### [facility] (DEFAULT) [address] [place] [address] 81343 Hep B Surface Ab Negative Normal Negative [facility] Comment on above: Performed By: #### F CRAG #### [facility] (DEFAULT) [address] [place] [address] 55354 Hepatitis C Antibody Negative Normal Negative [facility] Comment on above: Performed By: #### F CRAG #### [facility] (DEFAULT) [address] [place] [address] 42865 ENCEPHALOPATHY, AUTOIMMUNE E VALUATION, CSFon 05-05-2024 AGNA-1,CSF Negative Normal Negative [facility] Comment on above: Result Comment: ADDITIONAL INFORMATION This test was developed and its performance characteristics determined by [facility] in a manner consistent with CLIA requirements. This test has not been cleared or approved by the U.S. Food and Drug Administration. Performed By: #### Dede TELLO, CHM7, IPB, CKB, TRIG, LDO #### [facility] (DEFAULT) [address] [address] AMPA-R AB CBA, CSF Negative Normal Negative [facility] Comment on above: Result Comment: ADDITIONAL INFORMATION This test was developed and its performance characteristics determined by [facility] in a manner consistent with CLIA requirements. This test has not been cleared or approved by the U.S. Food and Drug Administration. Performed By: #### M GO, CHM7, IPB, CKB, TRIG, LDO #### [facility] (DEFAULT) [address] [place] [address] AMPHIPHYSIN AB, CSF Negative Normal Negative [facility] Comment on above: Result Comment: ADDITIONAL INFORMATION This test was developed and its performance characteristics determined by [facility] in a manner consistent with CLIA requirements. This test has not been cleared or approved by the U.S. Food and Drug Administration. Performed By: #### Dede GO, CHM7, IPB, CKB, TRIG, LDO #### [facility] (DEFAULT) [address] [place] [address] MAT-1, CSF Negative Normal Negative [facility] Comment on above: Result Comment: ADDITIONAL INFORMATION This test was developed and its performance characteristics determined by [facility] in a manner consistent with CLIA requirements. This test has not been cleared or approved by the U.S. Food and Drug Administration. Performed By: #### M GO, CHM7, IPB, CKB, TRIG, LDO #### [facility] (DEFAULT) [address] [place] [address] MAT-2,CSF Negative Normal Negative [facility] Comment on above: Result Comment: ADDITIONAL INFORMATION This test was developed and its performance characteristics determined by [facility] in a manner consistent with CLIA requirements. This test has not been cleared or approved by the U.S. Food and Drug Administration. Performed By: #### M GO, CHM7, IPB, CKB, TRIG, LDO #### [facility] (DEFAULT) [address] [place] [address] MAT-3,CSF Negative Normal Negative [facility] Comment on above: Result Comment: ADDITIONAL INFORMATION This test was developed and its performance characteristics determined by [facility] in a manner consistent with CLIA requirements. This test has not been cleared or approved by the U.S. Food and Drug Administration. Performed By: #### M GO, CHM7, IPB, CKB, TRIG, LDO #### [facility] [address] [place] [address] CASPR2-IgG CBA, CSF Negative Normal Negative [facility] Comment on above: Result Comment: ADDITIONAL INFORMATION This test was developed and its performance characteristics determined by [facility] in a manner consistent with CLIA requirements. This test has not been cleared or approved by the [place].S. Food and Drug Administration. Performed By: #### M GO, CHM7, IPB, CKB, TRIG, LDO #### [facility] (DEFAULT) [address] [place] [address]333 CRMP-5-IGG,CSF Negative Normal Negative [facility] Comment on above: Result Comment: ADDITIONAL INFORMATION This test was developed and its performance characteristics determined by [facility] in a manner consistent with CLIA requirements. This test has not been cleared or approved by the U.S. Food and Drug Administration. Performed By: #### M GO, CHM7, IPB, CKB, TRIG, LDO #### [facility] (DEFAULT) [address] [place] [address] 77561 DPPX AB CBA,CSF Negative Normal Negative [facility] Comment on above: Result Comment: ADDITIONAL INFORMATION This test was developed and its performance characteristics determined by [facility] in a manner consistent with CLIA requirements. This test has not been cleared or approved by the [place].S. Food and Drug Administration. Performed By: #### M GO, CHM7, IPB, CKB, TRIG, LDO #### [facility] (DEFAULT) [address] [address] Encephalopathy, Interpretation, CSF SEE COMMENTS Normal [facility] Comment on above: Result Comment: No i nformative autoantibodies were detected in this evaluation. However, a negative result does not exclude autoimmune encephalopathy, idiopathic or paraneoplastic. Sensitivity and specificity of antibody testing are enhanced by testing both serum and CSF. Performed By: #### M GO, CHM7, IPB, CKB, TRIG, LDO #### [facility] (DEFAULT) [address] [address] ADRIENNE-B-R AB CBA, CSF Negative Normal Negative [facility] Comment on above: Result Comment: ADDITIONAL INFORMATION This test was developed and its performance characteristics determined by [facility] in a manner consistent with CLIA requirements. This test has not been cleared or approved by the U.S. Food and Drug Administration. Performed By: #### M GO, CHM7, IPB, CKB, TRIG, LDO #### [facility] (DEFAULT) [address] [address] [id number] AB ASSAY, CSF 0.00 nmol/L Normal <= 0.02 [facility] Comment on above: Result Comment: ADDITIONAL INFORMATION This test was developed and its performance characteristics determined by [facility] in a manner consistent with CLIA requirements. This test has not been cleared or approved by the U.S. Food and Drug Administration. Performed By: #### M GO, CHM7, IPB, CKB, TRIG, LDO #### [facility] (DEFAULT) [address] [place] [address] 98336 GFAP IFA, CSF Negative Normal Negative [facility] Comment on above: Result Comment: ADDITIONAL INFORMATION This test was developed and its performance characteristics determined by [facility] in a manner consistent with CLIA requirements. This test has not been cleared or approved by the U.S. Food and Drug Administration. Performed By: #### M GO, CHM7, IPB, CKB, TRIG, LDO #### [facility] (DEFAULT) [address] [place] [address] IFA Notes None. Normal [facility] Comment on above: Performed By: #### M GO, CHM7, IPB, CKB, TRIG, LDO #### [facility] (DEFAULT) [address] [address] IgLON5 CBA, CSF Negative Normal Negative [facility] Comment on above: Result Comment: ADDITIONAL INFORMATION This test was developed and its performance characteristics determined by [facility] in a manner consistent with CLIA requirements. This test has not been cleared or approved by the U.S. Food and Drug Administration. Performed By: #### M GO, CHM7, IPB, CKB, TRIG, LDO #### [facility] (DEFAULT) [address] [address] LGI1-IgG,CBA,csf Negative Normal Negative [facility] Comment on above: Result Comment: ADDITIONAL INFORMATION This test was developed and its performance characteristics determined by [facility] in a manner consistent with CLIA requirements. This test has not been cleared or approved by the U.S. Food and Drug Administration. Performed By: #### M GO, CHM7, IPB, CKB, TRIG, LDO #### [facility] (DEFAULT) [address] [place] [address] MGLUR1 AB, IFA, CSF Negative Normal Negative [facility] Comment on above: Result Comment: ADDITIONAL INFORMATION This test was developed and its performance characteristics determined by [facility] in a manner consistent with CLIA requirements. This test has not been cleared or approved by the U.S. Food and Drug Administration. Performed By: #### Dede GO, CHM7, IPB, CKB, TRIG, LDO #### [facility] (DEFAULT) [address] [place] [address] Neurochondrin IFA, CSF Negative Normal Negative [facility] Comment on above: Result Comment: ADDITIONAL INFORMATION This test was developed and its performance characteristics determined by [facility] in a manner consistent with CLIA requirements. This test has not been cleared or approved by the U.S. Food and Drug Administration. Performed By: ###Nyla Aguayo GO, CHM7, IPB, CKB, TRIG, LDO #### [facility] (DEFAULT) [address] [place] [address] NIF IFA, CSF Negative Normal Negative [facility] Comment on above: Result Comment: ADDITIONAL INFORMATION This test was developed and its performance characteristics determined by [facility] in a manner consistent with CLIA requirements. This test has not been cleared or approved by the U.S. Food and Drug Administration. Performed By: #### Dede GO, CHM7, IPB, CKB, TRIG, LDO #### [facility] (DEFAULT) [address] [place] [address] NMDA-R AB CBA, CSF Negative Normal Negative [facility] Comment on above: Result Comment: ADDITIONAL INFORMATION This test was developed and its performance characteristics determined by [facility] in a manner consistent with CLIA requirements. This test has not been cleared or approved by the U.S. Food and Drug Administration. Performed By: #### Dede GO, CHM7, IPB, CKB, TRIG, LDO #### [facility] (DEFAULT) [address] [place] [address] D[employer]ENSION WAREHOUSE SUPERVISOR-1,CSF Negative Normal Negative [facility] Comment on above: Result Comment: ADDITIONAL INFORMATION This test was developed and its performance characteristics determined by [facility] in a manner consistent with CLIA requirements. This test has not been cleared or approved by the U.S. Food and Drug Administration. Performed By: #### Dede GO, CHM7, IPB, CKB, TRIG, LDO #### [facility] (DEFAULT) [address] [place] [address] DIMENSION WAREHOUSE SUPERVISOR-2,CSF Negative Normal Negative [facility] Comment on above: Result Comment: ADDITIONAL INFORMATION This test was developed and its performance characteristics determined by [facility] in a manner consistent with CLIA requirements. This test has not been cleared or approved by the U.S. Food and Drug Administration. Performed By: #### Dede GO, CHM7, IPB, CKB, TRIG, LDO #### [facility] (DEFAULT) [address] [place] [address] D[employer]ION WAREHOUSE SUPERVISOR-TR,CSF Negative Normal Negative [facility] Comment on above: Result Comment: ADDITIONAL INFORMATION This test was developed and its performance characteristics determined by [facility] in a manner consistent with CLIA requirements. This test has not been cleared or approved by the U.S. Food and Drug Administration. Performed By: #### M GO, CHM7, IPB, CKB, TRIG, LDO #### [facility] (DEFAULT) [address] [place] [address] PDE10A AB IFA, CSF Negative Normal Negative [facility] Comment on above: Result Comment: ADDITIONAL INFORMATION This test was developed and its performance characteristics determined by [facility] in a manner consistent with CLIA requirements. This test has not been cleared or approved by the U.S. Food and Drug Administration. Performed By: #### M GO, CHM7, IPB, CKB, TRIG, LDO #### [facility] (DEFAULT) [address] [place] [address] Septin-7 IFA, CSF Negative Normal Negative [facility] Comment on above: Result Comment: ADDITIONAL INFORMATION This test was developed and its performance characteristics determined by [facility] in a manner consistent with CLIA requirements. This test has not been cleared or approved by the U.S. Food and Drug Administration. Performed By: #### M GO, CHM7, IPB, CKB, TRIG, LDO #### [facility] (DEFAULT) [address] [place] [address] Tripartite Motif-Containing Protein 46 IgG IFA, CSF Negative Normal Negative [facility] Comment on above: Result Comment: ADDITIONAL INFORMATION This test was developed and its performance characteristics determined by [facility] in a manner consistent with CLIA requirements. This test has not been cleared or approved by the U.S. Food and Drug Administration. Test Performed by: [address] [address] Refrigeration Installer: Michael Pope Ph.D.; CLIA# [id number] Performed By: #### M GO, CHM7, IPB, CKB, TRIG, LDO #### [facility] (DEFAULT) [address] [place] [address] 68673 HAPTOGLOBINon 05-05-2024 Haptoglobin 306 mg/dL High 44-215 [facility] Comment on above: Performed By: #### F CRAG #### [facility] (DEFAULT) [address] [place] [address] 59597 HEP B SURFACE AG-Nikolai 04-08 Hepatitis B Surface Ag-Stat Negative Normal Negative [facility] Comment on above: Performed By: #### F CRAG #### [facility] (DEFAULT) [address] [place] [address] 11519 IONIZED CALCIUM, SERUMon ICA 4.62 mg/dL Normal 4.60-5.30 [facility] Comment on above: Performed By: #### F CRAG #### [facility] (DEFAULT) [address] [place] [address] 75102 ICA 4.24 mg/dL Low 4.60-5.30 [facility] Comment on above: Performed By: #### F CRAG #### [facility] (DEFAULT) [address] [place] [address] 49838 LACTATE, CSFon 05-05-2024 Lactate, CSF 1.5 mmol/L Normal <2.8 [facility] Comment on above: Performed By: #### M GO, CHM7, IPB, CKB, TRIG, LDO #### [facility] (DEFAULT) [address] [place] [address] 961[address] LOWER RESPIRATORY CULTURE, B ACTERIALon 05-05-2024 Bacteria identified Cx Nom (Unsp spec) Normal [facility] Comment on above: Result Comment: Grow th 4471 Light Growth Common oropharyngeal microbes Performed By: #### R ES #### [facility] (DEFAULT) [address] [place] [address] 03100 Microscopic observation Gram stain Nom (Unsp spec) Normal [facility] Comment on above: Result Comment: Neut rophils, Heavy Contaminating bacteria and epithelials present Specimen is of optimum quality Performed By: #### R ES #### [facility] (DEFAULT) [address] [place] [address] 23427 MAGNESIUMon 05-05-2024 Magnesium [Mass/Vol] 2.2 mg/dL Normal 1.6-2.6 [facility] Comment on above: Performed By: #### M GO, CHM7, IPB, CKB, TRIG, LDO #### [facility] (DEFAULT) [address] [place] [address] 19363 Magnesium [Mass/Vol] 1.5 mg/dL Low 1.6-2.6 [facility] Comment on above: Performed By: #### M GO, CHM7, IPB, CKB, TRIG, LDO #### [facility] (DEFAULT) [address] [place] [address] Magnesium [Mass/Vol] 1.5 mg/dL Low 1.6-2.6 [facility] Comment on above: Performed By: #### M GO, CHM7, IPB, CKB, TRIG, LDO #### [facility] (DEFAULT) [address] [place] [address]47 MENINGITIS/ENCEPHALITIS PANE L, CSFon 05-05-2024 CMV DNA Not detected Normal Not Detected [facility] Comment on above: Order Comment: A neg ative result does not exclude the possibility of RN CORONARY CARE UNIT infection and should not be used as the sole basis for diagnosis, treatment, or other management decisions. Negative results may occur when the concentration of organism(s), virus(es), or yeast in the specimen is below the limit of detection. The ME panel does not distinguish between latent and active herpesvirus infections(CMV, HHV-6). This test was performed using a film array method for the detection of: Escherichia coli K1, Haemophilus influenza, Listeria monocytogenes, Neisseria meningitidis, Streptococcus agalactiae, Streptococcus pneumoniae, Cytomegalovirus, Enterovirus, Herpes Simplex virus 1 and 2, Human Herpesvirus 6, Human parechovirus, Varicella zoster virus, and Cryptococcus neoformans/luly. Performed By: #### M OMER, CHM7, IPB, CKB, TRIG, LDO #### [facility] (DEFAULT) [address] [place] [address] Cryptococcus Luly/Neoformans DNA Not detected Normal Not Detected [facility] Comment on above: Order Comment: A neg ative result does not exclude the possibility of RN CORONARY CARE UNIT infection and should not be used as the sole basis for diagnosis, treatment, or other management decisions. Negative results may occur when the concentration of organism(s), virus(es), or yeast in the specimen is below the limit of detection. The ME panel does not distinguish between latent and active herpesvirus infections(CMV, HHV-6). This test was performed using a film array method for the detection of: Escherichia coli K1, Haemophilus influenza, Listeria monocytogenes, Neisseria meningitidis, Streptococcus agalactiae, Streptococcus pneumoniae, Cytomegalovirus, Enterovirus, Herpes Simplex virus 1 and 2, Human Herpesvirus 6, Human parechovirus, Varicella zoster virus, and Cryptococcus neoformans/luly. Performed By: #### M OMER, CHM7, IPB, CKB, TRIG, LDO #### [facility] (DEFAULT) [address] [place] [address] E. Coli K1 DNA Not detected Normal Not Detected [facility] Comment on above: Order Comment: A neg ative result does not exclude the possibility of RN CORONARY CARE UNIT infection and should not be used as the sole basis for diagnosis, treatment, or other management decisions. Negative results may occur when the concentration of organism(s), virus(es), or yeast in the specimen is below the limit of detection. The ME panel does not distinguish between latent and active herpesvirus infections(CMV, HHV-6). This test was performed using a film array method for the detection of: Escherichia coli K1, Haemophilus influenza, Listeria monocytogenes, Neisseria meningitidis, Streptococcus agalactiae, Streptococcus pneumoniae, Cytomegalovirus, Enterovirus, Herpes Simplex virus 1 and 2, Human Herpesvirus 6, Human parechovirus, Varicella zoster virus, and Cryptococcus neoformans/luly. Performed By: #### M CHEMO TELLO7, IPB, CKB, TRIG, LDO #### [facility] (DEFAULT) [address] [address] Enterovirus RNA Not detected Normal Not Detected [facility] Comment on above: Order Comment: A neg ative result does not exclude the possibility of RN CORONARY CARE UNIT infection and should not be used as the sole basis for diagnosis, treatment, or other management decisions. Negative results may occur when the concentration of organism(s), virus(es), or yeast in the specimen is below the limit of detection. The ME panel does not distinguish between latent and active herpesvirus infections(CMV, HHV-6). This test was performed using a film array method for the detection of: Escherichia coli K1, Haemophilus influenza, Listeria monocytogenes, Neisseria meningitidis, Streptococcus agalactiae, Streptococcus pneumoniae, Cytomegalovirus, Enterovirus, Herpes Simplex virus 1 and 2, Human Herpesvirus 6, Human parechovirus, Varicella zoster virus, and Cryptococcus neoformans/luly. Performed By: #### M ROXY TELLO, IPB, CKB, TRIG, LDO #### [facility] (DEFAULT) [address] [address] Haemophilus Influenza DNA Not detected Normal Not Detected [facility] Comment on above: Order Comment: A neg ative result does not exclude the possibility of RN CORONARY CARE UNIT infection and should not be used as the sole basis for diagnosis, treatment, or other management decisions. Negative results may occur when the concentration of organism(s), virus(es), or yeast in the specimen is below the limit of detection. The ME panel does not distinguish between latent and active herpesvirus infections(CMV, HHV-6). This test was performed using a film array method for the detection of: Escherichia coli K1, Haemophilus influenza, Listeria monocytogenes, Neisseria meningitidis, Streptococcus agalactiae, Streptococcus pneumoniae, Cytomegalovirus, Enterovirus, Herpes Simplex virus 1 and 2, Human Herpesvirus 6, Human parechovirus, Varicella zoster virus, and Cryptococcus neoformans/luly. Performed By: #### M GO, CHM7, IPB, CKB, TRIG, LDO #### [facility] (DEFAULT) [address] [place] [address] Hhv-6 DNA Not detected Normal Not Detected [facility] Comment on above: Order Comment: A neg ative result does not exclude the possibility of RN CORONARY CARE UNIT infection and should not be used as the sole basis for diagnosis, treatment, or other management decisions. Negative results may occur when the concentration of organism(s), virus(es), or yeast in the specimen is below the limit of detection. The ME panel does not distinguish between latent and active herpesvirus infections(CMV, HHV-6). This test was performed using a film array method for the detection of: Escherichia coli K1, Haemophilus influenza, Listeria monocytogenes, Neisseria meningitidis, Streptococcus agalactiae, Streptococcus pneumoniae, Cytomegalovirus, Enterovirus, Herpes Simplex virus 1 and 2, Human Herpesvirus 6, Human parechovirus, Varicella zoster virus, and Cryptococcus neoformans/luly. Performed By: #### M GO, CHM7, IPB, CKB, TRIG, LDO #### [facility] (DEFAULT) [address] [place] [address] 12339 Hsv-1 DNA Not detected Normal Not Detected [facility] Comment on above: Order Comment: A neg ative result does not exclude the possibility of RN CORONARY CARE UNIT infection and should not be used as the sole basis for diagnosis, treatment, or other management decisions. Negative results may occur when the concentration of organism(s), virus(es), or yeast in the specimen is below the limit of detection. The ME panel does not distinguish between latent and active herpesvirus infections(CMV, HHV-6). This test was performed using a film array method for the detection of: Escherichia coli K1, Haemophilus influenza, Listeria monocytogenes, Neisseria meningitidis, Streptococcus agalactiae, Streptococcus pneumoniae, Cytomegalovirus, Enterovirus, Herpes Simplex virus 1 and 2, Human Herpesvirus 6, Human parechovirus, Varicella zoster virus, and Cryptococcus neoformans/luly. Performed By: #### M GO, CHM7, IPB, CKB, TRIG, LDO #### [facility] (DEFAULT) [address] [place] [address] Hsv-2 DNA Not detected Normal Not Detected [facility] Comment on above: Order Comment: A neg ative result does not exclude the possibility of RN CORONARY CARE UNIT infection and should not be used as the sole basis for diagnosis, treatment, or other management decisions. Negative results may occur when the concentration of organism(s), virus(es), or yeast in the specimen is below the limit of detection. The ME panel does not distinguish between latent and active herpesvirus infections(CMV, HHV-6). This test was performed using a film array method for the detection of: Escherichia coli K1, Haemophilus influenza, Listeria monocytogenes, Neisseria meningitidis, Streptococcus agalactiae, Streptococcus pneumoniae, Cytomegalovirus, Enterovirus, Herpes Simplex virus 1 and 2, Human Herpesvirus 6, Human parechovirus, Varicella zoster virus, and Cryptococcus neoformans/luly. Performed By: #### M OMER, CHM7, IPB, CKB, TRIG, LDO #### [facility] (DEFAULT) [address] [place] [address] Human Parechovirus RNA Not detected Normal Not Detected [facility] Comment on above: Order Comment: A neg ative result does not exclude the possibility of RN CORONARY CARE UNIT infection and should not be used as the sole basis for diagnosis, treatment, or other management decisions. Negative results may occur when the concentration of organism(s), virus(es), or yeast in the specimen is below the limit of detection. The ME panel does not distinguish between latent and active herpesvirus infections(CMV, HHV-6). This test was performed using a film array method for the detection of: Escherichia coli K1, Haemophilus influenza, Listeria monocytogenes, Neisseria meningitidis, Streptococcus agalactiae, Streptococcus pneumoniae, Cytomegalovirus, Enterovirus, Herpes Simplex virus 1 and 2, Human Herpesvirus 6, Human parechovirus, Varicella zoster virus, and Cryptococcus neoformans/luly. Performed By: #### M GO, CHM7, IPB, CKB, TRIG, LDO #### [facility] (DEFAULT) [address] [address] Listeria Monocytogenes DNA Not detected Normal Not Detected [facility] Comment on above: Order Comment: A neg ative result does not exclude the possibility of RN CORONARY CARE UNIT infection and should not be used as the sole basis for diagnosis, treatment, or other management decisions. Negative results may occur when the concentration of organism(s), virus(es), or yeast in the specimen is below the limit of detection. The ME panel does not distinguish between latent and active herpesvirus infections(CMV, HHV-6). This test was performed using a film array method for the detection of: Escherichia coli K1, Haemophilus influenza, Listeria monocytogenes, Neisseria meningitidis, Streptococcus agalactiae, Streptococcus pneumoniae, Cytomegalovirus, Enterovirus, Herpes Simplex virus 1 and 2, Human Herpesvirus 6, Human parechovirus, Varicella zoster virus, and Cryptococcus neoformans/luly. Performed By: #### M GO, CHM7, IPB, CKB, TRIG, LDO #### [facility] (DEFAULT) [address] [place] [address] Neisseria Meningitidis DNA Not detected Normal Not Detected [facility] Comment on above: Order Comment: A neg ative result does not exclude the possibility of RN CORONARY CARE UNIT infection and should not be used as the sole basis for diagnosis, treatment, or other management decisions. Negative results may occur when the concentration of organism(s), virus(es), or yeast in the specimen is below the limit of detection. The ME panel does not distinguish between latent and active herpesvirus infections(CMV, HHV-6). This test was performed using a film array method for the detection of: Escherichia coli K1, Haemophilus influenza, Listeria monocytogenes, Neisseria meningitidis, Streptococcus agalactiae, Streptococcus pneumoniae, Cytomegalovirus, Enterovirus, Herpes Simplex virus 1 and 2, Human Herpesvirus 6, Human parechovirus, Varicella zoster virus, and Cryptococcus neoformans/luly. Performed By: #### M GO, CHM7, IPB, CKB, TRIG, LDO #### [facility] (DEFAULT) [address] [address] Streptococcus Agalactiae DNA Not detected Normal Not Detected [facility] Comment on above: Order Comment: A neg ative result does not exclude the possibility of RN CORONARY CARE UNIT infection and should not be used as the sole basis for diagnosis, treatment, or other management decisions. Negative results may occur when the concentration of organism(s), virus(es), or yeast in the specimen is below the limit of detection. The ME panel does not distinguish between latent and active herpesvirus infections(CMV, HHV-6). This test was performed using a film array method for the detection of: Escherichia coli K1, Haemophilus influenza, Listeria monocytogenes, Neisseria meningitidis, Streptococcus agalactiae, Streptococcus pneumoniae, Cytomegalovirus, Enterovirus, Herpes Simplex virus 1 and 2, Human Herpesvirus 6, Human parechovirus, Varicella zoster virus, and Cryptococcus neoformans/luly. Performed By: #### M OMER, CHM7, IPB, CKB, TRIG, LDO #### [facility] (DEFAULT) [address] [place] [address] Streptococcus Pneumoniae DNA Not detected Normal Not Detected [facility] Comment on above: Order Comment: A neg ative result does not exclude the possibility of RN CORONARY CARE UNIT infection and should not be used as the sole basis for diagnosis, treatment, or other management decisions. Negative results may occur when the concentration of organism(s), virus(es), or yeast in the specimen is below the limit of detection. The ME panel does not distinguish between latent and active herpesvirus infections(CMV, HHV-6). This test was performed using a film array method for the detection of: Escherichia coli K1, Haemophilus influenza, Listeria monocytogenes, Neisseria meningitidis, Streptococcus agalactiae, Streptococcus pneumoniae, Cytomegalovirus, Enterovirus, Herpes Simplex virus 1 and 2, Human Herpesvirus 6, Human parechovirus, Varicella zoster virus, and Cryptococcus neoformans/luly. Performed By: #### M OMER, CHM7, IPB, CKB, TRIG, LDO #### [facility] (DEFAULT) [address] [place] [address] Varicella Zoster DNA Not detected Normal Not Detected [facility] Comment on above: Order Comment: A neg ative result does not exclude the possibility of RN CORONARY CARE UNIT infection and should not be used as the sole basis for diagnosis, treatment, or other management decisions. Negative results may occur when the concentration of organism(s), virus(es), or yeast in the specimen is below the limit of detection. The ME panel does not distinguish between latent and active herpesvirus infections(CMV, HHV-6). This test was performed using a film array method for the detection of: Escherichia coli K1, Haemophilus influenza, Listeria monocytogenes, Neisseria meningitidis, Streptococcus agalactiae, Streptococcus pneumoniae, Cytomegalovirus, Enterovirus, Herpes Simplex virus 1 and 2, Human Herpesvirus 6, Human parechovirus, Varicella zoster virus, and Cryptococcus neoformans/luly. Performed By: #### M GO, CHM7, IPB, CKB, TRIG, LDO #### [facility] (DEFAULT) [address] [place] [address] PHOSPHATE, INORGANICon 05-05 Phosphorous 3.8 mg/dL Normal 2.2-4.6 [facility] Comment on above: Performed By: #### M GO, CHM7, IPB, CKB, TRIG, LDO #### [facility] (DEFAULT) [address] [place] [address] Phosphorous 3.8 mg/dL Normal 2.2-4.6 [facility] Comment on above: Performed By: #### M GO, CHM7, IPB, CKB, TRIG, LDO #### [facility] (DEFAULT) [address] [place] [address] POTASSIUMon 05-05-2024 Potassium [Moles/Vol] 4.2 mmol/L Normal 3.5-5.0 [facility] Comment on above: Performed By: #### M GO, CHM7, IPB, CKB, TRIG, LDO #### [facility] (DEFAULT) [address] [place] [address] 21353 PROTEIN & GLUCOSE, CSFon CSF Glucose 56 mg/dL Normal 40-70 [facility] Comment on above: Performed By: #### M GO, CHM7, IPB, CKB, TRIG, LDO #### [facility] (DEFAULT) [address] [place] [address] CSF Protein 33 mg/dL Normal 15-45 [facility] Comment on above: Performed By: #### M GO, CHM7, IPB, CKB, TRIG, LDO #### [facility] (DEFAULT) [address] [place] [address] SCREEN: MRSA/MSSAon 05-05-19 25 Methicillin Resistant S. Aureus By Pcr Negative Normal Negative [facility] Comment on above: Order Comment: Colle ct with an ESWAB - Anterior Nares for MRSA + MSSAThis test was performed using a real time PCR assay. Results should be interpreted in conjunction with other clinical and laboratory findings. A positive result does not necessarily indicate the presence of viable organism. This test should not be used as a test of cure. For E-swab specimens, this test was developed and its performance characteristics determined by the Clinical Microbiology Laboratory at [facility]. It has not been cleared or approved by the FDA.The laboratory is regulated under CLIA as qualified to perform high-complexity testing. This test is used for clinical purposes. It should not be regarded as investigational or for research. Performed By: #### M OMER, CHM7, IPB, CKB, TRIG, LDO #### [facility] (DEFAULT) [address] [place] [address] Staphylococcus Aureus By Pcr Negative Normal Negative [facility] Comment on above: Order Comment: Colle ct with an ESWAB - Anterior Nares for MRSA + MSSAThis test was performed using a real time PCR assay. Results should be interpreted in conjunction with other clinical and laboratory findings. A positive result does not necessarily indicate the presence of viable organism. This test should not be used as a test of cure. For E-swab specimens, this test was developed and its performance characteristics determined by the Clinical Microbiology [facility] at [facility]. It has not been cleared or approved by the FDA.The laboratory is regulated under CLIA as qualified to perform high-complexity testing. This test is used for clinical purposes. It should not be regarded as investigational or for research. Performed By: #### M OMER, CHM7, IPB, CKB, TRIG, LDO #### [facility] (DEFAULT) [address] [place] [address] T4 FREEon 05-05-2024 Free T4 [Mass/Vol] 1.49 ng/dL Normal 0.89-1.76 [facility] Comment on above: Performed By: #### M GO, CHM7, IPB, CKB, TRIG, LDO #### [facility] (DEFAULT) [address] [place] [address]254 TRIGLYCERIDEon 05-05-2024 Triglyceride [Mass/Vol] 113 mg/dL Normal <150 [facility] Comment on above: Order Comment: While on Propofol. Result Comment: [<15 0 mg/dL: Desirable] [150-199 mg/dL: Borderline] [200-499 mg/dL: High] [>500 mg/dL: Very High] Performed By: #### M GO, CHM7, IPB, CKB, TRIG, LDO #### [facility] (DEFAULT) [address] [place] [address] 6[address]67 TSH W/FT4 REFLEXon TSH 12.332 uIU/mL High 0.550-4.78 0 [facility] Comment on above: Performed By: #### M GO, CHM7, IPB, CKB, TRIG, LDO #### [facility] (DEFAULT) [address] [place] [address] VANCOMYCIN LEVEL, RANDOMon 0 05-05-2024 Vancomycin 21.7 mcg/mL High Peak: 20.0-40.0 mcg/mL, Trough: 10.0-20.0 mcg/mL [facility] Comment on above: Order Comment: While on Propofol. Performed By: #### M GO, CHM7, IPB, CKB, TRIG, LDO #### [facility] (DEFAULT) [address] [place] [address] VITAMIN D (25-HYDROXY,TOTAL) on 05-05-2024 25-OH Vitamin D Total 17.6 ng/mL Low 30.0-100.0 [facility] Comment on above: Order Comment: Vitam in D values have been shown to be falsely decreased in lipemic samples and should be interpreted with caution. Result Comment: <10 Deficiency 10-29 Insufficiency 30-100 Optimal Level >100 Possible Toxicity Performed By: #### F CRAG #### [facility] (DEFAULT) [address] [place], [place] [id number] XR ABDOMEN 1 VIEW PORTABLEon 05-05-2024 XR ABDOMEN 1 VIEW PORTABLE EXAM: XR ABDOMEN 1 VIEW PORTABLE, 05/05/2024 00:00 AM COMPARISON: Abdominal radiograph May 04, 2024 CLINICAL INDICATIONS: confirm ng / og OG tube removed and replaced. Confirm new tube.; FINDINGS: Tubes: OG tube projects over the stomach. Bowel gas pattern: Similar gaseous dilation of small bowel loops in the right abdomen. No visible free air. Abnormal calcifications/Radiopacitie s: Vascular calcifications. Bones: Spinal degenerative changes. Other findings: None. IMPRESSION: Enteric tube in stomach. Similar visualized dilated small bowel loops. Normal [facility] XR CHEST 1 VIEW PORTABLEon 0 05-05-2024 XR CHEST 1 VIEW PORTABLE EXAM: XR CHEST 1 VIEW PORTABLE, 05/05/2024 15:16 PM COMPARISON: Compared to prior day. CLINICAL INDICATIONS: right iJ. placement FINDINGS: (Adequate technique) Implanted Devices: Unchanged positioning of the left IJ CVC as well as the nasogastric tube. Right IJ CVC with tip terminating at the superior cavoatrial junction. Interval retraction of the endotracheal tube which now terminates approximately 3.6 cm above the level of the lisa. Surgical clips in the right upper quadrant of the abdomen. Thorax: Low lung volumes with similar left basilar volume loss, otherwise lungs are clear. No pleural effusions or pneumothorax. Stable heart size. Degenerative changes of the visualized osseous structures with no acute or suspicious osseous abnormalities. IMPRESSION: 1. Right IJ CVC with tip terminating at the superior cavoatrial junction. No pneumothorax. 2. Interval retraction of the endotracheal tube which now terminates 3.6 cm above the level of the lisa, in good position. 3. Unchanged left basilar volume loss, otherwise lungs are clear. I personally viewed and interpreted these images and I have reviewed and approved this report. Normal [facility] XR CHEST 1 VIEW PORTABLE EXAM: XR CHEST 1 VIEW PORTABLE, 05/04/2024 21:30 PM COMPARISON: No prior studies available for comparison. CLINICAL INDICATIONS: ETT confirmation after EMS transport RELEVANT CLINICAL HISTORY: FINDINGS: (Adequate technique) Implanted Devices: Endotracheal chest at the level of the lisa, slightly tilted to the right bronchus. The right IJ catheter with the tip terminating in the right atrium. The left IJ catheter with the tip terminating in the low SVC. Nasogastric tube courses below the diaphragm and within the gastric body. Thorax: Low lung volumes. Left basilar volume loss, right lung is clear. No pneumothorax or pleural effusion. Normal heart size. Degenerative changes of thoracic spine. IMPRESSION: 1. Endotracheal tube at the level the lisa, suggest adjustment. 2. Other support device as described above, in appropriate positions. 3. Left basilar volume loss. No pneumothorax. I, Marva Wallis MD have discussed the critical finding/s of endotracheal tube malposition with PRATIK ENNIS on 05/05/2024 9:59 AM. I personally viewed and interpreted these images and I have reviewed and approved this report. Normal [facility] ABORH TYPE RECONFIRMATIONon 05-04-2024 ABO/RH(D) TYPE AB POS Normal [facility] Comment on above: Result Comment: @ 23:40 by EKN: Performed By: #### T YPEC #### [facility] (DEFAULT) [address] [place] [address] AMMONIAon 05-04-2024 Ammonia (P) [Moles/Vol] 31 umol/L Normal 6-47 [facility] Comment on above: Performed By: #### M GO, CHM7, IPB, CKB, TRIG, LDO #### [facility] (DEFAULT) [address] [place] [address] Absolute neutrophil countOrd ered By: Ralph Haynes on 05-04-2024 Absolute neutrophil count 9.8 X10^3/uL High 2.0-7.7 [facility] Ammoniaon 05-04-2024 Ammonia (P) [Moles/Vol] 20.0 umol/L Normal 11-32 [facility] Comment on above: Performed By: #### L 501.9520, L503.5510 ####[facility] [address] [place], [address] Arterial patency Wrist arter y --pre arterial punctureOrdered By: Adithya Harrell on 05-04-2024 Assessment of wrist artery patency prior to arterial puncture Positive [facility] BRCon 05-04-2024 RC Normal [facility] Comment on above: Result Comment: [id number] ABN RC TRANSFUSED 05/04/24 1258 Performed By: #### B GIN, [facility] ####[facility] [address] [place], [address] Base excess Calc (BldV) [Mol es/Vol]Ordered By: Adithya Harrell on 05-04-2024 Blood base excess determination 0 mmol/L -2-2 [facility] Basic Metabolic Profile (BMP )on 05-04-2024 BUN/CRE 15.6 RATIO Normal 10-20 [facility] Comment on above: Performed By: #### L 100.0100, L500.2500 ####[facility] [address] [place], [address] CA,Total 7.5 mg/dL Low 8.5-10.1 [facility] Comment on above: Performed By: #### L 100.0100, L500.2500 ####[facility] [address] [place], [address] Chloride [Moles/Vol] 106 mmol/L Normal 98-107 [facility] Comment on above: Performed By: #### L 100.0100, L500.2500 ####[facility] [address] [place], [address] CO2 [Moles/Vol] 23.0 mmol/L Normal 21.0-32.0 [facility] Comment on above: Performed By: #### L 100.0100, L500.2500 ####[facility] [address] [place], [address] Creatinine [Mass/Vol] 2.88 mg/dL High 0.55-1.02 [facility] Comment on above: Result Comment: The validity of the calculated GFR GFRAA in patients over70 years has not been determined. Clinical correlation isessential. Performed By: #### L 100.0100, L500.2500 ####[facility] [address] [place], [address] ECRCL 17.75 ml/min Normal [facility] Comment on above: Performed By: #### L 100.0100, L500.2500 ####[facility] [address] [place], [address] EST GFR - AA 20 mL/min Low >60 [facility] Comment on above: Result Comment: Afri can Colombian GFR Calc Performed By: #### L 100.0100, L500.2500 ####[facility] [address] [place], [address] GAP 9 Normal 5-15 [facility] Comment on above: Performed By: #### L 100.0100, L500.2500 ####[facility] [address] [place], [address] GFR/1.73 sq M.predicted among non-blacks MDRD (S/P/Bld) [Vol rate/Area] 17 mL/min/{1.73_m2} Low >60 [facility] Comment on above: Result Comment: Non- GFR Calc Performed By: #### L 100.0100, L500.2500 ####[facility] [address] [place], [address] Glucose [Mass/Vol] 104 mg/dL Normal 74-106 [facility] Comment on above: Result Comment: Fast ing Glucose result from 100 to 125 mg/dLsuggests IMPAIRED HOMEOSTASIS per A.D.A. criteria. Performed By: #### L 100.0100, L500.2500 ####[facility] [address] [place], [address] Potassium [Moles/Vol] 3.9 mmol/L Normal 3.5-5.1 [facility] Comment on above: Performed By: #### L 100.0100, L500.2500 ####[facility] [address] [place], [address] Sodium [Moles/Vol] 139 mmol/L Normal 136-145 [facility] Comment on above: Performed By: #### L 100.0100, L500.2500 ####[facility] [address] [place], [address] Urea nitrogen [Mass/Vol] 45 mg/dL High 7-18 [facility] Comment on above: Performed By: #### L 100.0100, L500.2500 ####[facility] [address] [place], [address] Basophil percentageOrdered B y: Ralph Haynes on 05-04-2024 Basophil percentage 0.3 % 0-1 [facility] DELIA TEST Positive Normal [facility] Comment on above: Performed By: #### L 9000.0800 ####[facility] [address] [place], [address] Base excess Calc (Bld) [Moles/Vol] 0 mmol/L Normal -2 to +2 [facility] Comment on above: Performed By: #### L 9000.0800 ####[facility] [address] [place], [address] Blood Gas Type ART Normal [facility] Comment on above: Performed By: #### L 9000.0800 ####[facility] [address] [place], [address] CO2 [Moles/Vol] 24 mmol/L Normal [facility] Comment on above: Performed By: #### L 9000.0800 ####[facility] [address] [place], [address] FI02 25.0 Normal [facility] Comment on above: Performed By: #### L 8999.799 ####[facility] [address] [place], [address] HCO3 (Bld) [Moles/Vol] 22.8 mmol/L Normal 22-26 [facility] Comment on above: Performed By: #### L 8999.08 ####[facility] [address] [place], [address] Mode AC/PC Normal [facility] Comment on above: Performed By: #### L 8999.08 ####[facility] [address] [place], [address] O2 Delivery Dev Adult Vent Normal [facility] Comment on above: Performed By: #### L 8999.08 ####[facility] [address] [place], [address] pCO2 26.4 mmHg Low 35-45 [facility] Comment on above: Performed By: #### L 8999.08 ####[facility] [address] [place], [address] PEEP 5 Normal [facility] Comment on above: Performed By: #### L 8999.08 ####[facility] [address] [place], [address] pH (Bld) 7.54 [pH] High 7.35-7.45 [facility] Comment on above: Performed By: #### L 8999.08 ####[facility] [address] [place], [address] PIP 20 Normal [facility] Comment on above: Performed By: #### L 8999.08 ####[facility] [address] [place], [address] PO2 78 mmHG Normal 75-100 [facility] Comment on above: Performed By: #### L 9000.0800 ####[facility] [address] [place] [place], [address] RR 14 Normal [facility] Comment on above: Performed By: #### L 9000.0800 ####[facility] [address] [place], [address] SITE L Radial Normal [facility] Comment on above: Performed By: #### L 9000.0800 ####[facility] [address] [place], [address] SO2 97 Normal 95-99 [facility] Comment on above: Performed By: #### L 9000.0800 ####[facility] [address] [place], [address] Blood bicarbonate measuremen tOrdered By: Adithya Harrell on 05-04-2024 Blood bicarbonate measurement 22.8 mmol/L 22-26 [facility] Blood urea nitrogen (BUN)/cr eatinine ratioOrdered By: Ralph Haynes on 05-04-2024 Blood urea nitrogen (BUN)/creatinine ratio 15.6 RATIO 10-20 [facility] RAPHAEL AURIS SCREEN BY PCRo n 05-04-2024 Raphael auris Screen by PCR Not detected Normal Not Detected [facility] Comment on above: Order Comment: This test was performed using a real-time PCR assay. This test was developed, and its performance characteristics determined by The [facility] at [facility]. It has not been cleared or approved by the FDA. The laboratory is regulated under CLIA as qualified to perform high-complexity testing. This test is used for clinical purposes. It should not be regarded as investigational or for research. Performed By: #### M GO, CHM7, IPB, CKB, TRIG, LDO #### [facility] (DEFAULT) [address] [place] [address] CBC AND ELECTRONIC DIFFon Hematocrit (Bld) [Volume fraction] 24.7 % Low 34.9-44.3 [facility] Comment on above: Performed By: #### R ES #### [facility] (DEFAULT) [address] [address] Hemoglobin (Bld) [Mass/Vol] 7.9 g/dL Low 11.4-15.2 [facility] Comment on above: Performed By: #### R ES #### [facility] (DEFAULT) [address] [address] MCV (RBC) [Entitic vol] 98.8 fL High 79.6-97.7 [facility] Comment on above: Performed By: #### R ES #### [facility] (DEFAULT) [address] [address] Mean Cell Hgb 31.6 pg Normal 25.9-33.9 [facility] Comment on above: Performed By: #### R ES #### [facility] (DEFAULT) [address] [address] Mean Cell Hgb Conc 32.0 g/dL Normal 31.4-35.9 [facility] Comment on above: Performed By: #### R ES #### [facility] (DEFAULT) [address] [address] Mean Platelet Volume Normal [facility] Comment on above: Result Comment: Not measured Performed By: #### R ES #### [facility] (DEFAULT) [address] [address] Platelets (Bld) [#/Vol] 96 10*3/uL Low 150-393 [facility] Comment on above: Result Comment: This is an appended report. These results have been appended to a previously preliminary verified report. Performed By: #### R ES #### [facility] (DEFAULT) [address] [address] RBC (Bld) [#/Vol] 2.50 10*6/uL Low 3.91-5.04 [facility] Comment on above: Performed By: #### R ES #### [facility] (DEFAULT) [address] [address] RBC Distribution 16.7 % High 10.8-14.9 [facility] Comment on above: Performed By: #### R ES #### [facility] (DEFAULT) [address] [address] WBC (Bld) [#/Vol] 17.39 10*3/uL High 3.99-11.19 [facility] Comment on above: Result Comment: This is an appended report. These results have been appended to a previously preliminary verified report. Performed By: #### R ES #### [facility] (DEFAULT) [address] [place] [address] CBC W/Diff, Automatedon 04-07 PLT EST SLT DEC Normal ADEQ [facility] Comment on above: Performed By: #### L 100.0100, L500.2500 ####[facility] [address] [place], [address] STOMATOCYTE 1+ Normal [facility] Comment on above: Performed By: #### L 100.0100, L500.2500 ####[facility] [address] [place], [address] TARGET CELLS 1+ Normal [facility] Comment on above: Performed By: #### L 100.0100, L500.2500 ####[facility] [address] [place], [address] CHEM 7 (LYTES,BUN,CREA,GLUC) on 05-04-2024 Anion gap [Moles/Vol] 14 mmol/L Normal 7-17 [facility] Comment on above: Performed By: #### R ES #### [facility] (DEFAULT) [address] [place] [address] Chloride [Moles/Vol] 104 mmol/L Normal 98-108 [facility] Comment on above: Performed By: #### R ES #### [facility] (DEFAULT) [address] [address] CO2 [Moles/Vol] 22 mmol/L Normal 21-31 [facility] Comment on above: Performed By: #### R ES #### [facility] (DEFAULT) [address] [address] Creatinine [Mass/Vol] 3.28 mg/dL High 0.50-1.20 [facility] Comment on above: Performed By: #### R ES #### [facility] (DEFAULT) [address] [address] GFR/1.73 sq M.predicted among non-blacks MDRD (S/P/Bld) [Vol rate/Area] 14 mL/min/{1.73_m2} Low >=60 [facility] Comment on above: Result Comment: Repo rted eGFR is based on the CKD-EPI 2020 equation using creatinine, age, and sex. Performed By: #### R ES #### [facility] (DEFAULT) [address] [address] Glucose [Mass/Vol] 105 mg/dL High 70-99 [facility] Comment on above: Performed By: #### R ES #### [facility] (DEFAULT) [address] [address] Osmolality [Osmolality] 298 mosm/kg Normal 278-305 [facility] Comment on above: Performed By: #### R ES #### [facility] (DEFAULT) [address] [address] Potassium [Moles/Vol] 4.5 mmol/L Normal 3.5-5.0 [facility] Comment on above: Performed By: #### R ES #### [facility] (DEFAULT) [address] [place] [address] Sodium [Moles/Vol] 135 mmol/L Normal 135-145 [facility] Comment on above: Performed By: #### R ES #### [facility] (DEFAULT) [address] [address] Urea nitrogen [Mass/Vol] 49 mg/dL High 7-25 [facility] Comment on above: Performed By: #### R ES #### [facility] (DEFAULT) [address] [address] Urea nitrogen/Creatinine [Mass ratio] 15 mg/mg Normal [facility] Comment on above: Performed By: #### R ES #### [facility] (DEFAULT) [address] [address] Calcium [Mass/Vol]Ordered By : Ralph Haynes on 05-04-2024 Serum or plasma calcium measurement (mass/volume) 7.5 mg/dL Low 8.5-10.1 [facility] Carbon dioxide measurementOr dered By: Ralph Haynes on 05-04-2024 Carbon dioxide measurement 23.0 mmol/L 21.0-32.0 [facility] Chloride measurementOrdered By: Ralph Haynes on 05-04-2024 Chloride measurement 106 mmol/L 98-107 [facility] Creatinine [Mass/Vol]Ordered By: Ralph Haynes on 05-04-2024 Serum or plasma creatinine measurement (mass/volume) 2.88 mg/dL High 0.55-1.02 [facility] Determination of fraction of inspired oxygenOrdered By: Adithya Harrell on 05-04-2024 Determination of fraction of inspired oxygen 25.0 [facility] Eosinophil percentageOrdered By: Ralph Haynes on 05-04-2024 Eosinophil percentage 1.3 % 0-5 [facility] Erythrocyte distribution wid th (RBC) [Ratio]Ordered By: Ralph Haynes on 05-04-2024 Erythrocyte distribution width ratio 16.3 % High 11.6-14.6 [facility] Erythrocyte distribution width standard deviation 57.5 fl High 35.1-43.9 [facility] Estimated glomerular filtrat ion rate (GFR) AmericanOrdered By: Ralph Haynes on 05-04-2024 Estimated glomerular filtration rate (GFR) 20 mL/min Low >60 [facility] Estimation of creatinine jackie aranceOrdered By: Ralph Haynes on 05-04-2024 Estimation of creatinine clearance 17.75 ml/min [facility] Glomerular filtration rate ( GFR) estimationOrdered By: Ralph Haynes on 05-04-2024 Glomerular filtration rate (GFR) estimation 17 mL/min Low >60 [facility] Glucose measurementOrdered B y: Ralph Haynes on 05-04-2024 Glucose measurement 104 mg/dL 74-106 [facility] HEPATIC FUNCTION PANELon Albumin [Mass/Vol] 2.4 g/dL Low 3.5-5.0 [facility] Comment on above: Performed By: #### R ES #### [facility] (DEFAULT) [address] [address] ALP [Catalytic activity/Vol] 84 U/L Normal 32-126 [facility] Comment on above: Performed By: #### R ES #### [facility] (DEFAULT) [address] [address] ALT [Catalytic activity/Vol] 11 U/L Normal 9-48 [facility] Comment on above: Performed By: #### R ES #### [facility] (DEFAULT) [address] [address] AST [Catalytic activity/Vol] 23 U/L Normal 10-39 [facility] Comment on above: Performed By: #### R ES #### [facility] (DEFAULT) [address] [place] [address] Bilirubin [Mass/Vol] 0.5 mg/dL Normal <1.5 [facility] Comment on above: Performed By: #### R ES #### [facility] (DEFAULT) [address] [address] Bilirubin.indirect [Mass/Vol] 0.1 mg/dL Normal <0.3 [facility] Comment on above: Performed By: #### R ES #### [facility] (DEFAULT) [address] [place] [address] Protein [Mass/Vol] 4.6 g/dL Low 6.4-8.3 [facility] Comment on above: Performed By: #### R ES #### [facility] (DEFAULT) [address] [place] [address] HH, Hemoglobin AND Hematocri ton 05-04-2024 Hematocrit (Bld) [Volume fraction] 23.2 % Low [address] [place] [address] Comment on above: Performed By: #### L 100.0600 ####[facility] [address] [place], [address] Hemoglobin (Bld) [Mass/Vol] 7.6 g/dL Low 12.0-15.0 [facility] Comment on above: Performed By: #### L 100.0600 ####[facility] [address] [place], [address] Hematocrit (Bld) [Volume fraction] 19.7 % Low [address] [place] [address] Comment on above: Order Comment: Comme nts: Post Transfusion Performed By: #### L 100.0600 ####[facility] [address] [place], [address] Hemoglobin (Bld) [Mass/Vol] 6.4 g/dL Low 12.0-15.0 [facility] Comment on above: Order Comment: Comme nts: Post Transfusion Performed By: #### L 100.0600 ####[facility] [address] [place], [address] Hematocrit Auto (Bld) [Volum e fraction]Ordered By: Edgar Davies on 05-04-2024 Automated blood hematocrit (percentage) 23.2 % Low [address] [place] [address] Hemoglobin measurementOrdere d By: Edgar Davies on 05-04-2024 Hemoglobin measurement 7.6 g/dL Low 12.0-15.0 [facility] INFLUENZA A/B, RSV BY PCRon 05-04-2024 Influenza A - Pcr Not detected Normal Not Detected [facility] Comment on above: Order Comment: Viral transport media (red screw top with red liquid media)This test was performed using a multiplex real time PCR assay. This result does not rule out co-infections with pathogens that were not screened for by this test. Results should be used in conjunction with other clinical and laboratory findings. Performed By: #### M GO, CHM7, IPB, CKB, TRIG, LDO #### [facility] (DEFAULT) [address] [place] [address] Influenza B - Pcr Not detected Normal Not Detected [facility] Comment on above: Order Comment: Viral transport media (red screw top with red liquid media)This test was performed using a multiplex real time PCR assay. This result does not rule out co-infections with pathogens that were not screened for by this test. Results should be used in conjunction with other clinical and laboratory findings. Performed By: #### M GO, CHM7, IPB, CKB, TRIG, LDO #### [facility] (DEFAULT) [address] [place] [address] Rsv - Pcr Not detected Normal Not Detected [facility] Comment on above: Order Comment: Viral transport media (red screw top with red liquid media)This test was performed using a multiplex real time PCR assay. This result does not rule out co-infections with pathogens that were not screened for by this test. Results should be used in conjunction with other clinical and laboratory findings. Performed By: #### M GO, CHM7, IPB, CKB, TRIG, LDO #### [facility] (DEFAULT) [address] [place] [address] IONIZED CALCIUM, WHOLE BLOOD on 05-04-2024 ICA 3.97 mg/dL Low 4.60-5.30 [facility] Comment on above: Performed By: #### M GO, CHM7, IPB, CKB, TRIG, LDO #### [facility] (DEFAULT) [address] [place] [address] Immature granulocytes/100 WB C Auto (Bld)Ordered By: Ralph Haynes on 05-04-2024 Automated immature granulocyte percentage 4.700 % High 0.0-0.9 [facility] Lymphocytes Auto (Unsp spec) [#/Vol]Ordered By: Ralph Haynes on 05-04-2024 Absolute lymphocyte count 2.03 X10^3/uL 0.83-4.51 [facility] Lymphocytes/100 WBC Auto (Un sp spec)Ordered By: Ralph Haynes on 05-04-2024 Automated lymphocyte count as percentage of total leukocytes 14.6 % Low 19-41 [facility] MAGNESIUMon 05-04-2024 Magnesium [Mass/Vol] 1.5 mg/dL Low 1.6-2.6 [facility] Comment on above: Performed By: #### R ES #### [facility] (DEFAULT) [address] [place] [address] MCV (RBC) [Entitic vol]Order ed By: Ralph Haynes on 05-04-2024 MCV (mean corpuscular volume) determination 96.4 fL 81-99 [facility] MR/CON.PCM.NEon 05-04-2024 MR/CON.PCM.NE Normal [facility] Mean corpuscular hemoglobin (MCH) determinationOrdered By: Ralph Haynes on 05-04-2024 Mean corpuscular hemoglobin (MCH) determination 32.3 pg High 27.0-32.0 [facility] Mean corpuscular hemoglobin concentration (MCHC) determinationOrdered By: Ralph Haynes on 05-04-2024 Mean corpuscular hemoglobin concentration (MCHC) determination 33.5 g/dL 32-36 [facility] Mean platelet volume determi nationOrdered By: Ralph Haynes on 05-04-2024 Mean platelet volume determination 11.6 fl 6.2-12.0 [facility] Monocyte percentageOrdered B y: Ralph Haynes on 05-04-2024 Monocyte percentage 8.2 % 0-10 [facility] Neutrophil percentageOrdered By: Ralph Haynes on 05-04-2024 Neutrophil percentage 70.9 % High 47-70 [facility] No Panel InformationOrdered By: Adithya Harrell on 05-04-2024 ART [facility] L Radial [facility] AC/PC [facility] Adult Vent [facility] 20 [facility] 14 [facility] 5 [facility] Nucleated red blood cell per centageOrdered By: Ralph Haynes on 05-04-2024 Nucleated red blood cell percentage 1.7 % 0-5 [facility] Oxygen saturation measuremen tOrdered By: Adithya Harrell on 05-04-2024 Oxygen saturation measurement 97 % 95-99 [facility] PHOSPHATE, INORGANICon 05-04 Phosphorous 3.8 mg/dL Normal 2.2-4.6 [facility] Comment on above: Performed By: #### R ES #### [facility] (DEFAULT) [address] [place] [address] PT,INR,PTTon 05-04-2024 aPTT Coag (Bld) [Time] 32.8 s Normal 24.0-34.[address] [facility] Comment on above: Performed By: #### M GO, CHM7, IPB, CKB, TRIG, LDO #### [facility] (DEFAULT) [address] [place] [address] INR Coag (PPP) [Relative time] 1.1 {INR} Normal 0.9-1.1 [facility] Comment on above: Performed By: #### M GO, CHM7, IPB, CKB, TRIG, LDO #### [facility] (DEFAULT) [address] [place] [address] PT Coag (PPP) [Time] 14.2 s Normal 11.9-14.2 [facility] Comment on above: Performed By: #### M GO, CHM7, IPB, CKB, TRIG, LDO #### [facility] (DEFAULT) [address] [place] [address] Partial pressure of carbon d ioxide measurementOrdered By: Adithya Harrell on 05-04-2024 Partial pressure of carbon dioxide measurement 26.4 mmHg Low 35-45 [facility] Partial pressure of oxygen m easurementOrdered By: Adithya Harrell on 05-04-2024 Partial pressure of oxygen measurement 78 mmHG 75-100 [facility] Platelet countOrdered By: Roman nandamissael Haynes on 05-04-2024 Platelet count 99 K/mm3 Low 150-450 [facility] Platelets LM Ql (Bld)Ordered By: Ralph Haynes on 05-04-2024 Platelet estimate SLT DEC ADEQ [facility] Potassium measurementOrdered By: Ralph Haynes on 05-04-2024 Potassium measurement 3.9 mmol/L 3.5-5.1 [facility] RBC Auto (Bld) [#/Vol]Ordere d By: Ralph Haynes on 05-04-2024 Automated blood erythrocyte count 1.95 M/mm3 Low 4.2-5.4 [facility] SCREEN: MRSA/MSSAon 05-04-19 25 Methicillin Resistant S. Aureus By Pcr Negative Normal Negative [facility] Comment on above: Order Comment: Colle ct with an ESWAB - Anterior Nares for MRSA + MSSAThis test was performed using a real time PCR assay. Results should be interpreted in conjunction with other clinical and laboratory findings. A positive result does not necessarily indicate the presence of viable organism. This test should not be used as a test of cure. For E-swab specimens, this test was developed and its performance characteristics determined by the [facility] at [facility]. It has not been cleared or approved by the FDA.The laboratory is regulated under CLIA as qualified to perform high-complexity testing. This test is used for clinical purposes. It should not be regarded as investigational or for research. Performed By: #### M GO, CHM7, IPB, CKB, TRIG, LDO #### [facility] (DEFAULT) [address] [place] [address] Staphylococcus Aureus By Pcr Negative Normal Negative [facility] Comment on above: Order Comment: Colle ct with an ESWAB - Anterior Nares for MRSA + MSSAThis test was performed using a real time PCR assay. Results should be interpreted in conjunction with other clinical and laboratory findings. A positive result does not necessarily indicate the presence of viable organism. This test should not be used as a test of cure. For E-swab specimens, this test was developed and its performance characteristics determined by the [facility]. It has not been cleared or approved by the FDA.The laboratory is regulated under CLIA as qualified to perform high-complexity testing. This test is used for clinical purposes. It should not be regarded as investigational or for research. Performed By: #### M GO, CHM7, IPB, CKB, TRIG, LDO #### [facility] (DEFAULT) [address] [address] Serum anion gap measurementO rdered By: Ralph Haynes on 05-04-2024 Serum anion gap measurement 9 5-15 [facility] Sodium levelOrdered By: Jeovanny Haynes on 05-04-2024 Sodium level 139 mmol/L 136-145 [facility] TSH QnOrdered By: Edgar sapp on 05-04-2024 Serum or plasma thyroid stimulating hormone (TSH) measurement (units/volume) 15.400 uIU/mL High 0.358-3.74 0 [facility] TYPE AND SCREENon 05-04-2024 ABO/RH(D) TYPE AB POS Normal [facility] Comment on above: Result Comment: @ 22:49 by FT04: Performed By: #### M GO, CHM7, IPB, CKB, TRIG, LDO #### [facility] (DEFAULT) [address] [address] Outdate Specimen 05/07/2024 23:[address] [facility] Comment on above: Performed By: #### M GO, CHM7, IPB, CKB, TRIG, LDO #### [facility] (DEFAULT) [address] [address] Target cell detectionOrdered By: Ralph Haynes on 05-04-2024 Target cell detection 1+ [facility] Thyroid Stim Hormone (TSH)on 05-04-2024 TSH 15.400 uIU/mL High 0.358-3.74 0 [facility] Comment on above: Performed By: #### L 501.9520, L503.5510 ####[facility] [address] [place], [address] Total carbon dioxide measure mentOrdered By: Adithya Harrell on 05-04-2024 Total carbon dioxide measurement 24 mmol/L [facility] Type AND Screenon 05-04-2024 ABO and Rh group Nom (Bld) Blood group AB Rh(D) positive Normal [facility] Comment on above: Order Comment: CMV N EG? NNumber of units to transfuse: 1Reason for Ordering Blood: AcuteAre the blood/blood products to be transfused? YIs the patient having/had surgery? NWhen ReadyNY Performed By: #### B TS, BRC ####[facility] [address] [place], [address] URINALYSIS REFLEX TO CULTURE PERFORMABLEon 05-04-2024 Appearance (U) Turbid Abnormal Clear [facility] Comment on above: Order Comment: For i ndwelling catheters, specimen collection is acceptable on catheter day 1 and 2 only. ? Performed By: #### M GO, CHM7, IPB, CKB, TRIG, LDO #### [facility] (DEFAULT) [address] [place] [address] Bacteria PRESENT Abnormal ABSENT [facility] Comment on above: Order Comment: For i ndwelling catheters, specimen collection is acceptable on catheter day 1 and 2 only. ? Performed By: #### M GO, CHM7, IPB, CKB, TRIG, LDO #### [facility] (DEFAULT) [address] [place] [address] Blood Urine Large Abnormal Negative [facility] Comment on above: Order Comment: For i ndwelling catheters, specimen collection is acceptable on catheter day 1 and 2 only. ? Performed By: #### M GO, CHM7, IPB, CKB, TRIG, LDO #### [facility] (DEFAULT) [address] [place] [address] Color (U) Yellow Normal Yellow [facility] Comment on above: Order Comment: For i ndwelling catheters, specimen collection is acceptable on catheter day 1 and 2 only. ? Performed By: #### M GO, CHM7, IPB, CKB, TRIG, LDO #### [facility] (DEFAULT) [address] [place] [address] Glucose Ql (U) Negative Normal Negative [facility] Comment on above: Order Comment: For i ndwelling catheters, specimen collection is acceptable on catheter day 1 and 2 only. ? Performed By: #### M GO, CHM7, IPB, CKB, TRIG, LDO #### [facility] (DEFAULT) [address] [place] [address] Ketones Ql (U) Negative Normal Negative [facility] Comment on above: Order Comment: For i ndwelling catheters, specimen collection is acceptable on catheter day 1 and 2 only. ? Performed By: #### M GO, CHM7, IPB, CKB, TRIG, LDO #### [facility] (DEFAULT) [address] [place] [address] Leukocyte esterase Test strip Ql (U) Large Abnormal Negative [facility] Comment on above: Order Comment: For i ndwelling catheters, specimen collection is acceptable on catheter day 1 and 2 only. ? Performed By: #### M GO, CHM7, IPB, CKB, TRIG, LDO #### [facility] (DEFAULT) [address] [place] [address] Mucus Ql (Urine sed) PRESENT Normal [facility] Comment on above: Order Comment: For i ndwelling catheters, specimen collection is acceptable on catheter day 1 and 2 only. ? Performed By: #### M GO, CHM7, IPB, CKB, TRIG, LDO #### [facility] (DEFAULT) [address] [place] [address] Nitrites Urine Negative Normal Negative [facility] Comment on above: Order Comment: For i ndwelling catheters, specimen collection is acceptable on catheter day 1 and 2 only. ? Performed By: #### M GO, CHM7, IPB, CKB, TRIG, LDO #### [facility] (DEFAULT) [address] [place] [address] pH (U) 5.0 [pH] Normal 5.0-7.0 [facility] Comment on above: Order Comment: For i ndwelling catheters, specimen collection is acceptable on catheter day 1 and 2 only. ? Performed By: #### M GO, CHM7, IPB, CKB, TRIG, LDO #### [facility] (DEFAULT) [address] [place] [address] 24931 Protein Urine 30 mg/dL Abnormal Negative [facility] Comment on above: Order Comment: For i ndwelling catheters, specimen collection is acceptable on catheter day 1 and 2 only. ? Performed By: #### M GO, CHM7, IPB, CKB, TRIG, LDO #### [facility] (DEFAULT) [address] [place] [address] 93923 RBC Urine 11-25 Abnormal 0-2 [facility] Comment on above: Order Comment: For i ndwelling catheters, specimen collection is acceptable on catheter day 1 and 2 only. ? Performed By: #### M GO, CHM7, IPB, CKB, TRIG, LDO #### [facility] (DEFAULT) [address] [place] [address] 19215 Specific [place] Urine 1.009 Normal 1.001 -1.03 5 [facility] Comment on above: Order Comment: For i ndwelling catheters, specimen collection is acceptable on catheter day 1 and 2 only. ? Performed By: #### M GO, CHM7, IPB, CKB, TRIG, LDO #### [facility] (DEFAULT) [address] [place] [address] 69996 Squamous/Epithelial Cells 6-10/hpf = 2+ Abnormal 0-2/hpf, 3-5/hpf = 1+ [facility] Comment on above: Order Comment: For i ndwelling catheters, specimen collection is acceptable on catheter day 1 and 2 only. ? Performed By: #### M GO, CHM7, IPB, CKB, TRIG, LDO #### [facility] (DEFAULT) [address] [place] [address] 40739 Urobilinogen Urine 0.2 E.U./dL Normal 0.2 E.U/dL, 1.0 E.U/dL [facility] Comment on above: Order Comment: For i ndwelling catheters, specimen collection is acceptable on catheter day 1 and 2 only. ? Performed By: #### M OMER, CHM7, IPB, CKB, TRIG, LDO #### [facility] (DEFAULT) [address] [place] [address] 56878 WBC LM.HPF (Urine sed) [#/Area] /[HPF] Abnormal 0 - 5 [facility] Comment on above: Order Comment: For i ndwelling catheters, specimen collection is acceptable on catheter day 1 and 2 only. ? Performed By: #### M OMER, CHM7, IPB, CKB, TRIG, LDO #### [facility] (DEFAULT) [address] [place] [address] 02810 URINE CULTUREon 05-04-2024 Bacteria identified Cx Nom (U) No Growth Normal [facility] Comment on above: Order Comment: For i ndwelling catheters, specimen collection is acceptable on catheter day 1 and 2 only. Lopez top vacutainer. Urine must be to the fill line to process (4mls). If minimum volume, send urine in a yellow top vacutainer tube.For indwelling catheters, specimen collection is acceptable on catheter day 1 and 2 only. ? Performed By: #### M OMER, CHM7, IPB, CKB, TRIG, LDO #### [facility] (DEFAULT) [address] [place] [address] 96785 Urea nitrogen [Mass/Vol]Orde red By: Ralph Haynes on 05-04-2024 Serum or plasma urea nitrogen measurement (mass/volume) 45 mg/dL High 7-18 [facility] Urine Cultureon 05-04-2024 URC Normal [facility] Comment on above: Performed By: #### M 100.2200, L400.0001 ####[facility] [address] [place], [address] VENOUS BLOOD GAS PLUS LACTAT Jose 05-04-2024 Base Excess -2.6 mmol/L Normal -3.0-3.0 [facility] Comment on above: Performed By: #### G ASVL #### [facility] (DEFAULT) [address] [place] [address] 88647 HCO3 (Bld) [Moles/Vol] 23 mmol/L Normal 22-[address] [facility] Comment on above: Performed By: #### G ASVL #### [facility] (DEFAULT) [address] [place] [address] 17265 Lactate, Whole Blood 0.8 mmol/L Normal 0.5-1.6 [facility] Comment on above: Performed By: #### G ASVL #### [facility] (DEFAULT) [address] [place] [address] 96680 Oxygen saturation in Blood 74 % Normal 70-80 [facility] Comment on above: Performed By: #### G ASVL #### [facility] (DEFAULT) [address] [place] [address] 71975 pCO2, Venous 38 mm Hg Normal 36-52 [facility] Comment on above: Performed By: #### G ASVL #### [facility] (DEFAULT) [address] [address] pH, Venous 7.38 Normal 7.32-7.43 [facility] Comment on above: Performed By: #### G ASVL #### [facility] (DEFAULT) [address] [address] pO2, Venous 40 mm Hg Normal [facility] Comment on above: Result Comment: Veno us pO2 is not recommended for the evaluation of oxygen status, clinical correlation is recommended. Performed By: #### G ASVL #### [facility] (DEFAULT) [address] [address] Specimen type Nom (Spec) Venous Normal [facility] Comment on above: Performed By: #### G ASVL #### [facility] (DEFAULT) [address] [place] [address] 89433 Vancomycin [Mass/Vol]Ordered By: Edgar Davies on 05-04-2024 Serum or plasma vancomycin level (mass/volume) 17.9 ug/mL High 0.0-15.0 [facility] Vancomycin, Random Levelon 0 05-04-2024 VANCO, RANDOM 17.9 ug/mL High 0.0-15.0 [facility] Comment on above: Result Comment: VANC OMYCIN STANDARD DRUG THERAPY: CRITICAL VALUE IS > 15.0 mg/LVANCOMYCIN HIGH INTENSITY THERAPY: CRITICAL VALUE IS > 20.0 mg/LPLEASE CONTACT PHARMACY SERVICES (#8372) FOR INTERPRETATIONOF RESULTS. THIS RESULT DOES NOT REPRESENT A PEAK OR TROUGHLEVEL FOR THIS DRUG. Performed By: #### L 501.8850 ####[facility] [address] [facility] [place], [address] VANCO, RANDOM 20.6 ug/mL High 0.0-15.0 [facility] Comment on above: Result Comment: VANC OMYCIN STANDARD DRUG THERAPY: CRITICAL VALUE IS > 15.0 mg/LVANCOMYCIN HIGH INTENSITY THERAPY: CRITICAL VALUE IS > 20.0 mg/LPLEASE CONTACT PHARMACY SERVICES (#8380) FOR INTERPRETATIONOF RESULTS. THIS RESULT DOES NOT REPRESENT A PEAK OR TROUGHLEVEL FOR THIS DRUG. Performed By: #### L 501.8850 ####[facility] [address] [facility] [place], [address] Venous blood ammonia measure mentOrdered By: Edgar Davies on 05-04-2024 Venous blood ammonia measurement 20.0 umol/L 11-32 [facility] White blood cell (WBC) count Ordered By: Ralph Haynes on 05-04-2024 White blood cell (WBC) count 13.9 K/mm3 High 4.4-11.0 [facility] XR ABDOMEN 1 VIEW PORTABLEon 05-04-2024 XR ABDOMEN 1 VIEW PORTABLE EXAM: XR ABDOMEN 1 VIEW PORTABLE, 05/04/2024 21:30 PM COMPARISON: No prior abdominal radiographs available for comparison. CLINICAL INDICATIONS: NG tube confirmation FINDINGS: Tubes: NG tube tip and side-port project over the expected location of the gastric body. Bowel gas pattern: Mild gaseous distention of small bowel in the visualized mid abdomen measuring up to 4.1 cm. No visible free air. Abnormal calcifications/Radiopacitie s: None. Bones: No acute abnormality. Other findings: None. IMPRESSION: 1. Enteric tube projects over the stomach. 2. Mild gaseous distention of small bowel may reflect ileus. Normal [facility] pH (Unsp spec)Ordered By: Arnoldo Harrell on 05-04-2024 Measurement, pH 7.54 High 7.35-7.45 [facility] Albumin [Mass/Vol]Ordered By : Qian Albrecht on 05-03-2024 Serum or plasma albumin measurement (mass/volume) 1.8 g/dL Low 3.2-5.0 [facility] Basic Metabolic Profile (BMP )on 05-03-2024 BUN/CRE 18.0 RATIO Normal 10-20 [facility] Comment on above: Performed By: #### L 100.0100, L501.5200, L500.2500, L501.2300 ####[facility] [address] [place], [address] CA,Total 7.6 mg/dL Low 8.5-10.1 [facility] Comment on above: Performed By: #### L 100.0100, L501.5200, L500.2500, L501.2300 ####[facility] [address] [place], [address] Chloride [Moles/Vol] 110 mmol/L High 98-107 [facility] Comment on above: Performed By: #### L 100.0100, L501.5200, L500.2500, L501.2300 ####[facility] [address] [place], [address] CO2 [Moles/Vol] 22.0 mmol/L Normal 21.0-32.0 [facility] Comment on above: Performed By: #### L 100.0100, L501.5200, L500.2500, L501.2300 ####[facility] [address] [place], [address] Creatinine [Mass/Vol] 3.72 mg/dL High 0.55-1.02 [facility] Comment on above: Result Comment: The validity of the calculated GFR GFRAA in patients over70 years has not been determined. Clinical correlation isessential. Performed By: #### L 100.0100, L501.5200, L500.2500, L501.2300 ####[facility] [address] [place], [address] ECRCL 13.73 ml/min Normal [facility] Comment on above: Performed By: #### L 100.0100, L501.5200, L500.2500, L501.2300 ####[facility] [address] [place], [address] EST GFR - AA 15 mL/min Low >60 [facility] Comment on above: Result Comment: Afri can Colombian GFR Calc Performed By: #### L 100.0100, L501.5200, L500.2500, L501.2300 ####[facility] [address] [place], [address] GAP 9 Normal 5-15 [facility] Comment on above: Performed By: #### L 100.0100, L501.5200, L500.2500, L501.2300 ####[facility] [address] [place], [address] GFR/1.73 sq M.predicted among non-blacks MDRD (S/P/Bld) [Vol rate/Area] 12 mL/min/{1.73_m2} Low >60 [facility] Comment on above: Result Comment: Non- GFR Calc Performed By: #### L 100.0100, L501.5200, L500.2500, L501.2300 ####[facility] [address] [place], [address] Glucose [Mass/Vol] 122 mg/dL High 74-106 [facility] Comment on above: Result Comment: Fast ing Glucose result from 100 to 125 mg/dLsuggests IMPAIRED HOMEOSTASIS per A.D.A. criteria. Performed By: #### L 100.0100, L501.5200, L500.2500, L501.2300 ####[facility] [address] [place], [address] Potassium [Moles/Vol] 4.1 mmol/L Normal 3.5-5.1 [facility] Comment on above: Performed By: #### L 100.0100, L501.5200, L500.2500, L501.2300 ####[facility] [address] [place], [address] Sodium [Moles/Vol] 140 mmol/L Normal 136-145 [facility] Comment on above: Performed By: #### L 100.0100, L501.5200, L500.2500, L501.2300 ####[facility] [address] [place], [address] Urea nitrogen [Mass/Vol] 67 mg/dL High 7-18 [facility] Comment on above: Performed By: #### L 100.0100, L501.5200, L500.2500, L501.2300 ####[facility] [address] [place], [address] Kidney and Bladderon 025 Kidney and Bladder Normal [facility] Magnesiumon 05-03-2024 Magnesium [Mass/Vol] 1.6 mg/dL Normal 1.6-2.6 [facility] Comment on above: Performed By: #### L 100.0100, L501.5200, L500.2500, L501.2300 ####[facility] [address] [place], [address] Magnesium measurementOrdered By: Ralph Haynes on 05-03-2024 Magnesium measurement 1.6 mg/dL 1.6-2.6 [facility] Manual differential comment Janes (Bld) [Interp]Ordered By: Ralph Haynes on 05-03-2024 Blood manual differential comment interpretation (narrative result) SCANNED [facility] Pathologist review Janes (Unsp spec) [Interp]Ordered By: Ralph Haynes on 05-03-2024 Review by pathologist Reviewed [facility] Phosphoruson 05-03-2024 Phosphate [Mass/Vol] 3.5 mg/dL Normal 2.5-4.9 [facility] Comment on above: Performed By: #### L 100.0100, L501.5200, L500.2500, L501.2300 ####[facility] [address] [place], [address] Phosphorus measurementOrdere d By: Qian Albrecht on 05-03-2024 Phosphorus measurement 2.4 mg/dL Low 2.5-4.9 [facility] Renal Profileon 05-03-2024 Albumin [Mass/Vol] 1.8 g/dL Low 3.2-5.0 [facility] Comment on above: Performed By: #### L 500.3600 ####[facility] [address] [place], [place], [address] BUN/CRE 17.0 RATIO Normal 10-20 [facility] Comment on above: Performed By: #### L 500.3600 ####[facility] [address] [place], [address] CA,Total 7.9 mg/dL Low 8.5-10.1 [facility] Comment on above: Performed By: #### L 500.3600 ####[facility] [address] [place], [address] Chloride [Moles/Vol] 106 mmol/L Normal 98-107 [facility] Comment on above: Performed By: #### L 500.3600 ####[facility] [address] [place], [address] CO2 [Moles/Vol] 24.0 mmol/L Normal 21.0-32.0 [facility] Comment on above: Performed By: #### L 500.3600 ####[facility] [address] [place], [address] Creatinine [Mass/Vol] 2.35 mg/dL High 0.55-1.02 [facility] Comment on above: Result Comment: The validity of the calculated GFR GFRAA in patients over70 years has not been determined. Clinical correlation isessential. Performed By: #### L 500.3600 ####[facility] [address] [place], [address] ECRCL 21.74 ml/min Normal [facility] Comment on above: Performed By: #### L 500.3600 ####[facility] [address] [place], [address] EST GFR - AA 26 mL/min Low >60 [facility] Comment on above: Result Comment: Afri can Colombian GFR Calc Performed By: #### L 500.3600 ####[facility] [address] [place], [address] GFR/1.73 sq M.predicted among non-blacks MDRD (S/P/Bld) [Vol rate/Area] 21 mL/min/{1.73_m2} Low >60 [facility] Comment on above: Result Comment: Non- GFR Calc Performed By: #### L 500.3600 ####[facility] [address] [place], [address] Glucose [Mass/Vol] 105 mg/dL Normal 74-106 [facility] Comment on above: Result Comment: Fast ing Glucose result from 100 to 125 mg/dLsuggests IMPAIRED HOMEOSTASIS per A.D.A. criteria. Performed By: #### L 500.3600 ####[facility] [address] [place], [address] Phosphate [Mass/Vol] 2.4 mg/dL Low 2.5-4.9 [facility] Comment on above: Performed By: #### L 500.3600 ####[facility] [address] [place], [address] Potassium [Moles/Vol] 4.0 mmol/L Normal 3.5-5.1 [facility] Comment on above: Performed By: #### L 500.3600 ####[facility] [address] [place], [address] Sodium [Moles/Vol] 139 mmol/L Normal 136-145 [facility] Comment on above: Performed By: #### L 500.3600 ####[facility] [address] [place], [address] Urea nitrogen [Mass/Vol] 40 mg/dL High 7-18 [facility] Comment on above: Performed By: #### L 500.3600 ####[facility] [address] [place], [address] Albumin [Mass/Vol] 1.8 g/dL Low 3.2-5.0 [facility] Comment on above: Performed By: #### L 500.3600 ####[facility] [address] [place], [address] BUN/CRE 18.0 RATIO Normal 10-20 [facility] Comment on above: Performed By: #### L 500.3600 ####[facility] [address] [place], [address] CA,Total 7.7 mg/dL Low 8.5-10.1 [facility] Comment on above: Performed By: #### L 500.3600 ####[facility] [address] [place], [address] Chloride [Moles/Vol] 109 mmol/L High 98-107 [facility] Comment on above: Performed By: #### L 500.3600 ####[facility] [address] [place], [address] CO2 [Moles/Vol] 22.0 mmol/L Normal 21.0-32.0 [facility] Comment on above: Performed By: #### L 500.3600 ####[facility] [address] [place], [address] Creatinine [Mass/Vol] 3.11 mg/dL High 0.55-1.02 [facility] Comment on above: Result Comment: The validity of the calculated GFR GFRAA in patients over70 years has not been determined. Clinical correlation isessential. Performed By: #### L 500.3600 ####[facility] [address] [place], [address] ECRCL 16.43 ml/min Normal [facility] Comment on above: Performed By: #### L 500.3600 ####[facility] [address] [place], [address] EST GFR - AA 18 mL/min Low >60 [facility] Comment on above: Result Comment: Afri can [place]ian GFR Calc Performed By: #### L 500.3600 ####[facility] [address] [place], [address] GFR/1.73 sq M.predicted among non-blacks MDRD (S/P/Bld) [Vol rate/Area] 15 mL/min/{1.73_m2} Low >60 [facility] Comment on above: Result Comment: Non- GFR Calc Performed By: #### L 500.3600 ####[facility] [address] [place], [address] Glucose [Mass/Vol] 111 mg/dL High 74-106 [facility] Comment on above: Result Comment: Fast ing Glucose result from 100 to 125 mg/dLsuggests IMPAIRED HOMEOSTASIS per A.D.A. criteria. Performed By: #### L 500.3600 ####[facility] [address] [place], [address] Phosphate [Mass/Vol] 3.2 mg/dL Normal 2.5-4.9 [facility] Comment on above: Performed By: #### L 500.3600 ####[facility] [address] [place], [address] Potassium [Moles/Vol] 4.0 mmol/L Normal 3.5-5.1 [facility] Comment on above: Performed By: #### L 500.3600 ####[facility] [address] [place], [address] Sodium [Moles/Vol] 140 mmol/L Normal 136-145 [facility] Comment on above: Performed By: #### L 500.3600 ####[facility] [address] [place], [address] Urea nitrogen [Mass/Vol] 56 mg/dL High 7-18 [facility] Comment on above: Performed By: #### L 500.3600 ####[facility] [address] [place], [address] Albumin [Mass/Vol] 2.0 g/dL Low 3.2-5.0 [facility] Comment on above: Performed By: #### L 500.3600 ####[facility] [address] [place], [address] BUN/CRE 18.2 RATIO Normal 10-20 [facility] Comment on above: Performed By: #### L 500.3600 ####[facility] [address] [place], [address] CA,Total 7.6 mg/dL Low 8.5-10.1 [facility] Comment on above: Performed By: #### L 500.3600 ####[facility] [address] [place], [address] Chloride [Moles/Vol] 110 mmol/L High 98-107 [facility] Comment on above: Performed By: #### L 500.3600 ####[facility] [address] [place], [address] CO2 [Moles/Vol] 21.0 mmol/L Normal 21.0-32.0 [facility] Comment on above: Performed By: #### L 500.3600 ####[facility] [address] [place], [address] Creatinine [Mass/Vol] 3.69 mg/dL High 0.55-1.02 [facility] Comment on above: Result Comment: The validity of the calculated GFR GFRAA in patients over70 years has not been determined. Clinical correlation isessential. Performed By: #### L 500.3600 ####[facility] [address] [place], [address] ECRCL 13.84 ml/min Normal [facility] Comment on above: Performed By: #### L 500.3600 ####[facility] [address] [place], [address] EST GFR - AA 15 mL/min Low >60 [facility] Comment on above: Result Comment: Afri can Colombian GFR Calc Performed By: #### L 500.3600 ####[facility] [address] [place], [address] GFR/1.73 sq M.predicted among non-blacks MDRD (S/P/Bld) [Vol rate/Area] 13 mL/min/{1.73_m2} Low >60 [facility] Comment on above: Result Comment: Non- GFR Calc Performed By: #### L 500.3600 ####[facility] [address] [place], [address] Glucose [Mass/Vol] 120 mg/dL High 74-106 [facility] Comment on above: Result Comment: Fast ing Glucose result from 100 to 125 mg/dLsuggests IMPAIRED HOMEOSTASIS per A.D.A. criteria. Performed By: #### L 500.3600 ####[facility] [address] [place], [address] Phosphate [Mass/Vol] 3.5 mg/dL Normal 2.5-4.9 [facility] Comment on above: Performed By: #### L 500.3600 ####[facility] [address] [place], [address] Potassium [Moles/Vol] 4.1 mmol/L Normal 3.5-5.1 [facility] Comment on above: Performed By: #### L 500.3600 ####[facility] [address] [place], [address] Sodium [Moles/Vol] 140 mmol/L Normal 136-145 [facility] Comment on above: Performed By: #### L 500.3600 ####[facility] [address] [place], [address] Urea nitrogen [Mass/Vol] 67 mg/dL High 7-18 [facility] Comment on above: Performed By: #### L 500.3600 ####[facility] [address] [place], [address] Respiratory Cultureon 2024 RESPC Mixed normal respira tory gisela. No Streptococcus pneumoniae, beta-hemolytic Streptococcus or Staphylococcus aureus isolated. Normal [facility] Comment on above: Performed By: #### M 100.2000, M100.2400 ####[facility] [address] [place], [address] Vancomycin trough [Mass/Vol] Ordered By: Ralph Haynes on 05-03-2024 Serum or plasma trough vancomycin level 24.6 ug/mL High 5.0-15.0 [facility] Vancomycin, Random Levelon 0 05-03-2024 VANCO, RANDOM 20.8 ug/mL High 0.0-15.0 [facility] Comment on above: Result Comment: VANC OMYCIN STANDARD DRUG THERAPY: CRITICAL VALUE IS > 15.0 mg/LVANCOMYCIN HIGH INTENSITY THERAPY: CRITICAL VALUE IS > 20.0 mg/LPLEASE CONTACT PHARMACY SERVICES (#8333) FOR INTERPRETATIONOF RESULTS. THIS RESULT DOES NOT REPRESENT A PEAK OR TROUGHLEVEL FOR THIS DRUG. Performed By: #### L 501.8850 ####[facility] [address] [place], [address] VANCO, RANDOM 26.5 ug/mL High 0.0-15.0 [facility] Comment on above: Result Comment: VANC OMYCIN STANDARD DRUG THERAPY: CRITICAL VALUE IS > 15.0 mg/LVANCOMYCIN HIGH INTENSITY THERAPY: CRITICAL VALUE IS > 20.0 mg/LPLEASE CONTACT PHARMACY SERVICES (#8315) FOR INTERPRETATIONOF RESULTS. THIS RESULT DOES NOT REPRESENT A PEAK OR TROUGHLEVEL FOR THIS DRUG. Performed By: #### L 501.8850 ####[facility] [address] [place], [address] Vancomycin, Trough Levelon 0 05-03-2024 VANCO, TROUGH 24.6 ug/mL High 5.0-15.0 [facility] Comment on above: Order Comment: Comme nts: DRAW 30 MIN PRIOR TO [id number] Result Comment: VANC OMYCIN STANDARED DRUG THERAPY TROUGH LEVEL: 5.0 - 15.0 mg/LVANCOMYCIN HIGH INTENSITY THERAPY TROUGH LEVEL: 15.0 - 20.0 mg/LHigh Intensity therapy recommended for serious lifethreatening infections include:- Uynvygysrg-Wgmscithbrcy-Sobysigfs (Ventilator/Healtcare Associated)-SepsisPLEASE CONTACT PHARMACY SERVICES (#9966) FOR INTERPRETATIONOF RESULTS. Performed By: #### L 501.8820 ####[facility] [address] [place], [place], [address] 12 Lead EKGon 05-02-2024 12 Lead EKG Normal [facility] 12 Lead EKG Normal [facility] 12 Lead EKG Normal [facility] DELIA TEST N/A Normal [facility] Comment on above: Performed By: #### L 9000.0800 ####[facility] [address] [place], [address] Base excess Calc (Bld) [Moles/Vol] -17 mmol/L Low -2 to +2 [facility] Comment on above: Performed By: #### L 9000.0800 ####[facility] [address] [place], [address] Blood Gas Type ART Normal [facility] Comment on above: Performed By: #### L 9000.0800 ####[facility] [address] [place], [address] CO2 [Moles/Vol] 9 mmol/L Normal [facility] Comment on above: Performed By: #### L 9000.0800 ####[facility] [address] [place], [address] FI02 21.0 Normal [facility] Comment on above: Performed By: #### L 9000.0800 ####[facility] [address] [place], [address] HCO3 (Bld) [Moles/Vol] 8.8 mmol/L Low 22-26 [facility] Comment on above: Performed By: #### L 9000.0800 ####[facility] [address] [place], [address] Mode AC/PC Normal [facility] Comment on above: Performed By: #### L 9000.0800 ####[facility] [address] [place], [address] O2 Delivery Dev Adult Vent Normal [facility] Comment on above: Performed By: #### L 9000.0800 ####[facility] [address] [place], [address] pCO2 16.1 mmHg Invalid Interpretation Code 35-45 [facility] Comment on above: Performed By: #### L 9000.0800 ####[facility] [address] [place], [address] PEEP 5 Normal [facility] Comment on above: Performed By: #### L 9000.0800 ####[facility] [address] [place], [address] pH (Bld) 7.35 [pH] Normal 7.35-7.45 [facility] Comment on above: Performed By: #### L 9000.0800 ####[facility] [address] [place], [address] PO2 100 mmHG Normal 75-100 [facility] Comment on above: Performed By: #### L 9000.0800 ####[facility] [address] [place], [address] Read Back By Yes [facility] Comment on above: Performed By: #### L 9000.0800 ####[facility] [address] [place], [address] Gallardo [facility] Comment on above: Performed By: #### L 9000.0800 ####[facility] [address] [place], [address] RR 16 Normal [facility] Comment on above: Performed By: #### L 9000.0800 ####[facility] [address] [place], [address] SITE L Radial Normal [facility] Comment on above: Performed By: #### L 9000.0800 ####[facility] [address] [place], [address] SO2 98 Normal 95-99 [facility] Comment on above: Performed By: #### L 9000.0800 ####[facility] [address] [place], [address] Time Given 05:44:24 Normal [facility] Comment on above: Performed By: #### L 9000.0800 ####[facility] [address] [place], [address] Brain/Head without Contrasto n 05-02-2024 Brain/Head without Contrast Normal [facility] CBC W/Diff, Automatedon 04-07 Absolute Lymph 0.80 X10 3/uL Low 0.83-4.51 [facility] Comment on above: Performed By: #### L 501.5200, L501.2300, L100.0100 ####[facility] [address] [place], [address] Absolute Neut 11.5 X10 3/uL High 2.0-7.7 [facility] Comment on above: Performed By: #### L 501.5200, L501.2300, L100.0100 ####[facility] [address] [place], [address] Basophils/100 WBC (Bld) 0.1 % Normal 0-1 [facility] Comment on above: Performed By: #### L 501.5200, L501.2300, L100.0100 ####[facility] [address] [place], [address] Eosinophils/100 WBC (Bld) 0.2 % Normal 0-5 [facility] Comment on above: Performed By: #### L 501.5200, L501.2300, L100.0100 ####[facility] [address] [place], [address] Erythrocyte distribution width (RBC) [Ratio] 16.3 % High 11.6-14.6 [facility] Comment on above: Performed By: #### L 501.5200, L501.2300, L100.0100 ####[facility] [address] [place], [address] Hematocrit (Bld) [Volume fraction] 27.4 % Low 37-47 [facility] Comment on above: Performed By: #### L 501.5200, L501.2300, L100.0100 ####[facility] [address] [place], [address] Hemoglobin (Bld) [Mass/Vol] 8.7 g/dL Low 12.0-15.0 [facility] Comment on above: Performed By: #### L 501.5200, L501.2300, L100.0100 ####[facility] [address] [place], [address] IG% 0.700 Normal 0.0-0.9 [facility] Comment on above: Result Comment: IG% - Immature Granulocytes (promyelocytes, myelocytes andmetamyelocytes) > 1% indicates that a LEFT SHIFT is Present. Performed By: #### L 501.5200, L501.2300, L100.0100 ####[facility] [address] [place], [address] Lymphocytes/100 WBC (Bld) 5.8 % Low 19-41 [facility] Comment on above: Performed By: #### L 501.5200, L501.2300, L100.0100 ####[facility] [address] [place], [address] MCH (RBC) [Entitic mass] 31.8 pg Normal 27.0-32.0 [facility] Comment on above: Performed By: #### L 501.5200, L501.2300, L100.0100 ####[facility] [address] [place], [address] MCHC (RBC) [Mass/Vol] 31.8 g/dL Low 32-36 [facility] Comment on above: Performed By: #### L 501.5200, L501.2300, L100.0100 ####[facility] [address] [place], [address] MCV (RBC) [Entitic vol] 100.0 fL High 81-99 [facility] Comment on above: Performed By: #### L 501.5200, L501.2300, L100.0100 ####[facility] [address] [place], [address] Monocytes/100 WBC (Bld) 9.5 % Normal 0-10 [facility] Comment on above: Performed By: #### L 501.5200, L501.2300, L100.0100 ####[facility] [address] [place], [address] Neutrophils/100 WBC (Bld) 83.7 % High 47-70 [facility] Comment on above: Performed By: #### L 501.5200, L501.2300, L100.0100 ####[facility] [address] [place], [address] Nucleated RBC (Bld) [#/Vol] 0.5 10*3/uL Normal 0-5 [facility] Comment on above: Performed By: #### L 501.5200, L501.2300, L100.0100 ####[facility] [address] [place], [address] Platelet mean volume (Bld) [Entitic vol] 12.2 fL High 6.2-12.0 [facility] Comment on above: Performed By: #### L 501.5200, L501.2300, L100.0100 ####[facility] [address] [place], [address] Platelets (Bld) [#/Vol] 266 10*3/uL Normal 150-450 [facility] Comment on above: Performed By: #### L 501.5200, L501.2300, L100.0100 ####[facility] [address] [place], [address] RBC (Bld) [#/Vol] 2.74 10*6/uL Low 4.2-5.4 [facility] Comment on above: Performed By: #### L 501.5200, L501.2300, L100.0100 ####[facility] [address] [place], [address] RDW SD 59.3 fl High 35.1-43.9 [facility] Comment on above: Performed By: #### L 501.5200, L501.2300, L100.0100 ####[facility] [address] [place], [address] WBC (Bld) [#/Vol] 13.7 10*3/uL High 4.4-11.0 [facility] Comment on above: Performed By: #### L 501.5200, L501.2300, L100.0100 ####[facility] [address] [place], [address] CNPNon 05-02-2024 CNPN Telephone ([place]) MARI LOPEZ ([id number]) 1940 F Date Time Provider Department 05/02/24 [facility] During your visit today, we recorded the following information about you: Olga Dillard, KEVIN 05/02/2024 9:25 AM Signed Friend (Alex) calls to let provider's office know that patient is currently at [facility] in the ICU for sepsis and kidney failure. Nothing further needed at this time. Closing encounter. Olga Dillard RN Allergies As of Date: 05/02/2024 Noted Allergy Reaction BACTRIM (SULFAMETHOXAZOLE-TRIMETH*0 07/23/2016 4 - Hives Comments: Blisters: head to toe IBUPROFEN 11/08/2015 2 - Rash KEFZOL (CEFAZOLIN SODIUM) 08/09/2018 4 - Hives PEANUT 03/31/2023 10 - Anaphylaxis SULFA (SULFONAMIDE ANTIBIOTICS) 07/23/2016 4 - Hives 16 - Unknown Comments: Blisters: head to toe Date Reviewed: 03/16/2024 Reviewed by: Minna Blue LPN - Fully Assessed Reason for Visit: Patient Update [1234] Prescriptions as of 05/02/2024 - zolpidem (AMBIEN) 10 mg Take 1 tablet by mouth at bedtime as needed for up to 90 days. - furosemide (LASIX) 40 mg tablet Take 1 tablet by mouth once daily. - levothyroxine (LEVOXYL) 125 mcg tablet Take 1 tablet by mouth once daily. Take on empty stomach. For thyroid. - gabapentin (NEURONTIN) 300 mg capsule Take 1 capsule by mouth three times a day for 180 days. Take one pill 3 times per day Do not start before September 28, 2023. - cyclobenzaprine (FLEXERIL) 10 mg tablet Take 1 tablet by mouth three times a day as needed for muscle spasm. - polyethylene glycol 3350 (MIRALAX) 17 gram/dose powder Take by mouth once daily. Dissolve dose in 4 - 8 ounces of liquid and take as directed. - polyethylene glycol 3350 (MIRALAX) 17 gram/dose powder Take once daily - lisinopril-hydroCHLOROthiaz amaya (ZESTORETIC) 10-12.5 mg per tablet Take 1 tablet by mouth once daily. - omeprazole (PRILOSEC) 20 mg capsule Take 1 capsule by mouth once daily. - GEMTESA 75 mg tablet Take 1 tablet by mouth every afternoon. - aspirin, enteric coated (ASPIRIN, ENTERIC COATED) 81 mg EC tablet Take 81 mg by mouth once daily. - tolterodine ER (DETROL LA) 4 mg 24 hr capsule TAKE 1 CAPSULE BY MOUTH ONCE DAILY - acetaminophen (TYLENOL) 500 mg tablet Take 1,000 mg by mouth twice daily. - Diaper,Brief, Adult,Disposable (DEPEND UNDERWEAR FOR WOMEN XL) Use 5/day as needed for urinary incontinence - metoprolol succinate ER (TOPROL XL) 50 mg 24 hr tablet Take by mouth. - Xweyxuveyic-Rnelsnolg-Rly C-Mn (GLUCOSAMINE CHONDROITIN MAXSTR) 500-400 mg cap Take 1 capsule by mouth three times daily. - COMPOUNDED PRESCRIPTION Stair lift - DAILY-LUISITO tablet TAKE 1 TABLET BY MOUTH ONCE DAILY. - dpxcbif-xncjurvpk-ktxweru D3 (CALCIUM 500+D) 500 mg(1,250mg) -200 unit per tablet Take 1 tablet by mouth twice daily with meals. - vitamin b complex (B COMPLETE) tab Take 1 tablet by mouth once daily. - hydrocortisone (ANUSOL-HC) 2.5 % rectal cream 1 application by RECTAL route twice daily. - calcium acetate (PHOSLO) 667 mg capsule TAKE 1 CAPSULE BY MOUTH THREE TIMES DAILY. - Magnesium 200 mg tab Take 200 mg by mouth once daily. - Zinc 50 mg tab Take 1 tablet by mouth once daily. - cholecalciferol (VITAMIN D3) 1,000 unit tab tablet Take 2 tablets by mouth once daily. - senna-docusate (SENNA-S) 8.6-50 mg per tablet Take 1 tablet by mouth once daily. - ascorbic acid(VITAMIN C 500 MG TAB) Take one(1) tablet daily. - VITAMIN E 400 UNIT CAP Take one(1) tablet twice daily. - pyridoxine hcl(VITAMIN B-6 100 MG TAB) Take one(1) tablet daily. - CENTRUM PERFORMANCE TAB Take one(1) tablet daily. Meds Comments as of 10/27/2016: Magnesium, zinc, Glucosamine-chondroitin, Fish-Oil Problem List As Of Date 05/02/2024 Noted Resolved Class 3 severe obesity with body mass index (BM*06/28/2003 BENIGN HYPERTENSION(aka HTN) [I10] 07/21/2003 ASTHMA UNSPECIFIED [J45.909] 07/21/2003 OTHER UNSPEC SLEEP APNEA(aka APNEA) [G47.30] 07/21/2003 Primary osteoarthritis of both knees [M17.0] 07/21/2003 THROMBOPHLEBITIS NOS(aka DVT) [I80.9] 07/21/2003 08/21/2009 PULMON EMBOLISM/INFARCT(aka EMBOLISM) [415.1] 07/21/2003 08/21/2009 VENTRAL HERNIA NEC [K43.9] 03/26/2004 07/01/2007 ASA CLASS III [1003] 05/07/2005 07/12/2021 INJURY TRUNK SITE NEC [YJH2785] 01/16/2006 07/01/2007 Anemia in chronic kidney disease (CKD) [N18.9, *03/17/2006 Non-Healing Surgical Wound [T81.89XA] 03/16/2007 05/18/2009 FEMALE STRESS INCONTINENCE [N39.3] 07/12/2008 MASS IN SUBCUTANEOUS TISSUE [R22.9] 07/21/2008 08/18/2018 Pain in Joint, Lower Leg [M25.569] 11/14/2008 08/21/2009 Rotator cuff syndrome [M75.100] 02/19/2011 Insomnia [G47.00] 07/30/2011 Screening for colon cancer [Z12.11] 11/24/2016 07/12/2021 Dyspepsia [R10.13] 11/24/2016 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 Normal [facility] CXR for Line Placementon CXR for Line Placement Normal [facility] Consultation - Nephrologyon 05-02-2024 Consultation - Nephrology Normal [facility] Gram Stainon 05-02-2024 GS Acceptable Specimen? Yes (<25 Epithelial cells per/lpf) Gram Stain 1+ Gram positive cocci 2+ White Blood Cells No Epithelial cells Normal [facility] Comment on above: Performed By: #### M 100.2000, M100.2400 ####[facility] [address] [place], [place], [id number] International normalized rat io (INR) calculationOrdered By: Qian Albrecht on 05-02-2024 International normalized ratio (INR) calculation 1.3 [facility] Magnesiumon 05-02-2024 Magnesium [Mass/Vol] 1.7 mg/dL Normal 1.6-2.6 [facility] Comment on above: Order Comment: FOR B MP SEE 0127:C87 Performed By: #### L 501.5200, L501.2300, L100.0100 ####[facility] [address] [place], [address] Magnesium [Mass/Vol] 2.2 mg/dL Normal 1.6-2.6 [facility] Comment on above: Performed By: #### L 501.2300, L501.5200 ####[facility] [address] [place], [address] No Panel InformationOrdered By: Bernarda Becerril on 05-02-2024 05:44:[address] [facility] [address] Gallardo [facility] Yes [facility] Partial Thromboplast Timeon 05-02-2024 aPTT Coag (Bld) [Time] 39.9 s High 24.1-36.2 [facility] Comment on above: Performed By: #### L 300.3900, L300.4310 ####[facility] [address] [place], [address] aPTT Coag (Bld) [Time] 30.1 s Normal 24.1-36.2 [facility] Comment on above: Performed By: #### L 300.4310, L300.3900 ####[facility] [address] [place], [address] Phosphoruson 05-02-2024 Phosphate [Mass/Vol] 7.9 mg/dL High 2.5-4.9 [facility] Comment on above: Order Comment: FOR B MP SEE 0127:C87 Performed By: #### L 501.5200, L501.2300, L100.0100 ####[facility] [address] [place], [address] Phosphate [Mass/Vol] 9.9 mg/dL Invalid Interpretation Code 2.5-4.9 [facility] Comment on above: Performed By: #### L 501.2300, L501.5200 ####[facility] [address] [place], [id number] Procedure Reporton Procedure Report Normal [facility] Prothrombin Time w/INRon INR Coag (PPP) [Relative time] 1.3 {INR} Normal [facility] Comment on above: Performed By: #### L 300.3900, L300.4310 ####[facility] [address] [place], [id number] PT Coag (PPP) [Time] 16.1 s High 11.7-14.9 [facility] Comment on above: Performed By: #### L 300.3900, L300.4310 ####[facility] [address] [place], [id number] INR Coag (PPP) [Relative time] 1.2 {INR} Normal [facility] Comment on above: Performed By: #### L 300.4310, L300.3900 ####[facility] [address] [place], [id number] PT Coag (PPP) [Time] 15.5 s High 11.7-14.9 [facility] Comment on above: Performed By: #### L 300.4310, L300.3900 ####[facility] [address] [place], [id number] Prothrombin timeOrdered By: Qian Albrecht on 05-02-2024 Prothrombin time 16.1 SECONDS High 11.7-14.9 [facility] Renal Profileon 05-02-2024 Albumin [Mass/Vol] 1.8 g/dL Low 3.2-5.0 [facility] Comment on above: Performed By: #### L 500.3600 ####[facility] [address] [place], [id number] BUN/CRE 19.6 RATIO Normal 10-20 [facility] Comment on above: Performed By: #### L 500.3600 ####[facility] [address] [place], [address] CA,Total 7.1 mg/dL Low 8.5-10.1 [facility] Comment on above: Performed By: #### L 500.3600 ####[facility] [address] [place], [address] Chloride [Moles/Vol] 112 mmol/L High 98-107 [facility] Comment on above: Performed By: #### L 500.3600 ####[facility] [address] [place], [address] CO2 [Moles/Vol] 19.0 mmol/L Low 21.0-32.0 [facility] Comment on above: Performed By: #### L 500.3600 ####[facility] [address] [place], [address] Creatinine [Mass/Vol] 4.91 mg/dL High 0.55-1.02 [facility] Comment on above: Result Comment: The validity of the calculated GFR GFRAA in patients over70 years has not been determined. Clinical correlation isessential. Performed By: #### L 500.3600 ####[facility] [address] [place], [address] ECRCL 10.10 ml/min Normal [facility] Comment on above: Performed By: #### L 500.3600 ####[facility] [address] [place], [address] EST GFR - AA 11 mL/min Low >60 [facility] Comment on above: Result Comment: Afri can Colombian GFR Calc Performed By: #### L 500.3600 ####[facility] [address] [place], [address] GFR/1.73 sq M.predicted among non-blacks MDRD (S/P/Bld) [Vol rate/Area] 9 mL/min/{1.73_m2} Low >60 [facility] Comment on above: Result Comment: Non- GFR Calc Performed By: #### L 500.3600 ####[facility] [address] [place], [address] Glucose [Mass/Vol] 126 mg/dL High 74-106 [facility] Comment on above: Result Comment: Fast ing Glucose result greater than or equal to 126 mg/dLsuggests DIABETES MELLITUS per A.D.A. criteria. Performed By: #### L 500.3600 ####[facility] [address] [place], [address] Phosphate [Mass/Vol] 4.5 mg/dL Normal 2.5-4.9 [facility] Comment on above: Performed By: #### L 500.3600 ####[facility] [address] [place], [address] Potassium [Moles/Vol] 3.4 mmol/L Low 3.5-5.1 [facility] Comment on above: Performed By: #### L 500.3600 ####[facility] [address] [place], [address] Sodium [Moles/Vol] 142 mmol/L Normal 136-145 [facility] Comment on above: Performed By: #### L 500.3600 ####[facility] [address] [place], [address] Urea nitrogen [Mass/Vol] 96 mg/dL High 7-18 [facility] Comment on above: Performed By: #### L 500.3600 ####[facility] [address] [place], [address] Albumin [Mass/Vol] 1.9 g/dL Low 3.2-5.0 [facility] Comment on above: Performed By: #### L 500.3600 ####[facility] [address] [place], [address] BUN/CRE 18.5 RATIO Normal 10-20 [facility] Comment on above: Performed By: #### L 500.3600 ####[facility] [address] [place], [address] CA,Total 7.0 mg/dL Low 8.5-10.1 [facility] Comment on above: Performed By: #### L 500.3600 ####[facility] [address] [place], [address] Chloride [Moles/Vol] 113 mmol/L High 98-107 [facility] Comment on above: Performed By: #### L 500.3600 ####[facility] [address] [place], [address] CO2 [Moles/Vol] 18.0 mmol/L Low 21.0-32.0 [facility] Comment on above: Performed By: #### L 500.3600 ####[facility] [address] [place], [address] Creatinine [Mass/Vol] 5.68 mg/dL High 0.55-1.02 [facility] Comment on above: Result Comment: The validity of the calculated GFR GFRAA in patients over70 years has not been determined. Clinical correlation isessential. Performed By: #### L 500.3600 ####[facility] [address] [place], [address] ECRCL 8.73 ml/min Normal [facility] Comment on above: Performed By: #### L 500.3600 ####[facility] [address] [place], [address] EST GFR - AA 9 mL/min Low >60 [facility] Comment on above: Result Comment: Afri can Colombian GFR Calc Performed By: #### L 500.3600 ####[facility] [address] [place], [id number] GFR/1.73 sq M.predicted among non-blacks MDRD (S/P/Bld) [Vol rate/Area] 8 mL/min/{1.73_m2} Low >60 [facility] Comment on above: Result Comment: Non- GFR Calc Performed By: #### L 500.3600 ####[facility] [address] [place], [address] Glucose [Mass/Vol] 153 mg/dL High 74-106 [facility] Comment on above: Result Comment: Fast ing Glucose result greater than or equal to 126 mg/dLsuggests DIABETES MELLITUS per A.D.A. criteria. Performed By: #### L 500.3600 ####[facility] [address] [place], [address] Phosphate [Mass/Vol] 5.1 mg/dL High 2.5-4.9 [facility] Comment on above: Performed By: #### L 500.3600 ####[facility] [address] [place], [address] Potassium [Moles/Vol] 3.6 mmol/L Normal 3.5-5.1 [facility] Comment on above: Performed By: #### L 500.3600 ####[facility] [address] [place], [address] Sodium [Moles/Vol] 142 mmol/L Normal 136-145 [facility] Comment on above: Performed By: #### L 500.3600 ####[facility] [address] [place], [address] Urea nitrogen [Mass/Vol] 105 mg/dL Invalid Interpretation Code 7-18 [facility] Comment on above: Result Comment: Crit ical Result(s) Called at: 15:14:16 05/02/2024 by: Maye Johnson RN (ICU). Results read back by same. Performed By: #### L 500.3600 ####[facility] [address] [place], [address] Albumin [Mass/Vol] 2.3 g/dL Low 3.2-5.0 [facility] Comment on above: Performed By: #### L 500.3600 ####[facility] [address] [place], [address] BUN/CRE 19.4 RATIO Normal 10-20 [facility] Comment on above: Performed By: #### L 500.3600 ####[facility] [address] [place], [address] CA,Total 7.3 mg/dL Low 8.5-10.1 [facility] Comment on above: Performed By: #### L 500.3600 ####[facility] [address] [place], [address] Chloride [Moles/Vol] 118 mmol/L High 98-107 [facility] Comment on above: Performed By: #### L 500.3600 ####[facility] [address] [place], [address] CO2 [Moles/Vol] 8.0 mmol/L Invalid Interpretation Code 21.0-32.0 [facility] Comment on above: Result Comment: Crit ical Result(s) Called at: 04:31:10 05/02/2024 by:DEEJAY SOLIMAN TO KEVIN MARIA. Results read back by same. Performed By: #### L 500.3600 ####[facility] [address] [place], [address] Creatinine [Mass/Vol] 7.23 mg/dL High 0.55-1.02 [facility] Comment on above: Result Comment: The validity of the calculated GFR GFRAA in patients over70 years has not been determined. Clinical correlation isessential. Performed By: #### L 500.3600 ####[facility] [address] [place], [address] ECRCL 6.75 ml/min Normal [facility] Comment on above: Performed By: #### L 500.3600 ####[facility] [address] [place], [address] EST GFR - AA 7 mL/min Low >60 [facility] Comment on above: Result Comment: Afri can Colombian GFR Calc Performed By: #### L 500.3600 ####[facility] [address] [place], [address] GFR/1.73 sq M.predicted among non-blacks MDRD (S/P/Bld) [Vol rate/Area] 6 mL/min/{1.73_m2} Low >60 [facility] Comment on above: Result Comment: Non- GFR Calc Performed By: #### L 500.3600 ####[facility] [address] [place], [address] Glucose [Mass/Vol] 191 mg/dL High 74-106 [facility] Comment on above: Result Comment: Fast ing Glucose result greater than or equal to 126 mg/dLsuggests DIABETES MELLITUS per A.D.A. criteria. Performed By: #### L 500.3600 ####[facility] [address] [place], [address] Phosphate [Mass/Vol] 8.1 mg/dL High 2.5-4.9 [facility] Comment on above: Performed By: #### L 500.3600 ####[facility] [address] [place], [address] Potassium [Moles/Vol] 4.0 mmol/L Normal 3.5-5.1 [facility] Comment on above: Performed By: #### L 500.3600 ####[facility] [address] [place], [id number] Sodium [Moles/Vol] 145 mmol/L Normal 136-145 [facility] Comment on above: Performed By: #### L 500.3600 ####[facility] [address] [place], [id number] Urea nitrogen [Mass/Vol] 140 mg/dL Invalid Interpretation Code 7-18 [facility] Comment on above: Result Comment: Crit ical Result(s) Called at: 04:31:41 05/02/2024 by:DEEJAY SOLIMAN TO KEVIN MARIA. Results read back by same. Performed By: #### L 500.3600 ####[facility] [address] [place], [id number] Thyroid Stim Hormone (TSH)on 05-02-2024 TSH 7.150 uIU/mL High 0.358-3.74 0 [facility] Comment on above: Performed By: #### L 501.9520 ####[facility] [facility] [address] [place], [id number] Venous Blood Gason 5 HCO3 (Bld) [Moles/Vol] 4 mmol/L Low - [facility] Comment on above: Performed By: #### L 9000.0810 ####[facility] [address] [place], [address] aPTT Coag (PPP) [Time]Ordere d By: Qian Albrecht on 05-02-2024 Activated partial thromboplastin time (aPTT) in platelet poor plasma by coagulation a 39.9 Seconds High 24.1-36.2 [facility] 12 Lead EKGon 05-01-2024 12 Lead EKG Normal [facility] ALP [Catalytic activity/Vol] Ordered By: Alexis Friend on 05-01-2024 Serum or plasma alkaline phosphatase measurement 97 U/L 45-117 [facility] ALT [Catalytic activity/Vol] Ordered By: Alexis Friend on 05-01-2024 Serum or plasma alanine aminotransferase (ALT) measurement 18 U/L 13-56 [facility] Albumin to globulin ratioOrd ered By: Alexis Friend on 05-01-2024 Albumin to globulin ratio 0.8 RATIO Low 0.9-2.4 [facility] Bacteria LM.HPF (Urine sed) [#/Area]Ordered By: Alexisomega Friend on 05-01-2024 Urine sediment bacteria count by microscopy (number/high power field) 3+ /hpf None Seen [facility] Base excess Calc (BldV) [Mol es/Vol]Ordered By: Alexisomega Friend on 05-01-2024 Venous blood base excess measurement -27 mmol/L Low -1.0-3.5 [facility] Basic Metabolic Profile (BMP )on 05-01-2024 BUN/CRE 19.3 RATIO Normal 10-20 [facility] Comment on above: Performed By: #### L 500.2500 ####[facility] [address] [place], [address] CA,Total 7.5 mg/dL Low 8.5-10.1 [facility] Comment on above: Performed By: #### L 500.2500 ####[facility] [address] [place], [address] Chloride [Moles/Vol] 122 mmol/L High 98-107 [facility] Comment on above: Performed By: #### L 500.2500 ####[facility] [address] [place], [address] CO2 [Moles/Vol] 6.0 mmol/L Invalid Interpretation Code 21.0-32.0 [facility] Comment on above: Result Comment: Crit ical Result(s) Called at: 22:02:26 05/01/2024 by: CARLITOS. Results read back by Oumou PATRICK Performed By: #### L 500.2500 ####[facility] [address] [place], [address] Creatinine [Mass/Vol] 7.48 mg/dL Invalid Interpretation Code 0.55-1.02 [facility] Comment on above: Result Comment: Crit ical Result(s) Called at: 22:03:07 05/01/2024 by: CARLITOS. Results read back by EDNAThe validity of the calculated GFR GFRAA in patients over70 years has not been determined. Clinical correlation isessential. Performed By: #### L 500.2500 ####[facility] [address] [place], [address] ECRCL 6.52 ml/min Normal [facility] Comment on above: Performed By: #### L 500.2500 ####[facility] [address] [place], [address] EST GFR - AA 7 mL/min Low >60 [facility] Comment on above: Result Comment: Afri can Colombian GFR Calc Performed By: #### L 500.2500 ####[facility] [address] [place], [address] GAP 15 Normal 5-15 [facility] Comment on above: Performed By: #### L 500.2500 ####[facility] [address] [place], [address] GFR/1.73 sq M.predicted among non-blacks MDRD (S/P/Bld) [Vol rate/Area] 6 mL/min/{1.73_m2} Low >60 [facility] Comment on above: Result Comment: Non- GFR Calc Performed By: #### L 500.2500 ####[facility] [address] [place], [address] Glucose [Mass/Vol] 144 mg/dL High 74-106 [facility] Comment on above: Result Comment: Fast ing Glucose result greater than or equal to 126 mg/dLsuggests DIABETES MELLITUS per A.D.A. criteria. Performed By: #### L 500.2500 ####[facility] [address] [place], [address] Potassium [Moles/Vol] 5.1 mmol/L Normal 3.5-5.1 [facility] Comment on above: Performed By: #### L 500.2500 ####[facility] [address] [place], [address] Sodium [Moles/Vol] 143 mmol/L Normal 136-145 [facility] Comment on above: Performed By: #### L 500.2500 ####[facility] [address] [place], [address] Urea nitrogen [Mass/Vol] 144 mg/dL Invalid Interpretation Code 7-18 [facility] Comment on above: Result Comment: Crit ical Result(s) Called at: 22:02:51 05/01/2024 by: CARLITOS. Results read back by Oumou PATRICK Performed By: #### L 500.2500 ####[facility] [address] [place], [address] BUN/CRE 20.2 RATIO High 10-20 [facility] Comment on above: Performed By: #### L 500.2500 ####[facility] [address] [place], [address] CA,Total 7.7 mg/dL Low 8.5-10.1 [facility] Comment on above: Performed By: #### L 500.2500 ####[facility] [address] [place], [address] Chloride [Moles/Vol] 124 mmol/L High 98-107 [facility] Comment on above: Performed By: #### L 500.2500 ####[facility] [address] [place], [address] CO2 [Moles/Vol] 5.0 mmol/L Invalid Interpretation Code 21.0-32.0 [facility] Comment on above: Result Comment: Crit ical Result(s) Called at: 16:28:22 05/01/2024 by: CARLITOS. Results read back by Ilana Alarcon Performed By: #### L 500.2500 ####[facility] [address] [place], [address] Creatinine [Mass/Vol] 7.33 mg/dL High 0.55-1.02 [facility] Comment on above: Result Comment: The validity of the calculated GFR GFRAA in patients over70 years has not been determined. Clinical correlation isessential. Performed By: #### L 500.2500 ####[facility] [address] [place], [address] ECRCL 6.59 ml/min Normal [facility] Comment on above: Performed By: #### L 500.2500 ####[facility] [address] [place], [address] EST GFR - AA 7 mL/min Low >60 [facility] Comment on above: Result Comment: Afri can Colombian GFR Calc Performed By: #### L 500.2500 ####[facility] [address] [place], [address] GAP 15 Normal 5-15 [facility] Comment on above: Performed By: #### L 500.2500 ####[facility] [address] [place], [address] GFR/1.73 sq M.predicted among non-blacks MDRD (S/P/Bld) [Vol rate/Area] 6 mL/min/{1.73_m2} Low >60 [facility] Comment on above: Result Comment: Non- GFR Calc Performed By: #### L 500.2500 ####[facility] [address] [place], [address] Glucose [Mass/Vol] 82 mg/dL Normal 74-106 [facility] Comment on above: Performed By: #### L 500.2500 ####[facility] [address] [place], [address] Potassium [Moles/Vol] 5.4 mmol/L High 3.5-5.1 [facility] Comment on above: Performed By: #### L 500.2500 ####[facility] [address] [place], [address] Sodium [Moles/Vol] 144 mmol/L Normal 136-145 [facility] Comment on above: Performed By: #### L 500.2500 ####[facility] [address] [place], [address] Urea nitrogen [Mass/Vol] 148 mg/dL Invalid Interpretation Code 7-18 [facility] Comment on above: Result Comment: Crit ical Result(s) Called at: 16:28:46 05/01/2024 by: CARLITOS. Results read back by Ilana Alarcon Performed By: #### L 500.2500 ####[facility] [address] [place], [address] Bilirubin Test strip Ql (U)O rdered By: Alexis Friend on 05-01-2024 Urine total bilirubin detection by test strip 1 mg/dL High Negative [facility] Bilirubin, totalOrdered By: Alexis Friend on 05-01-2024 Bilirubin, total 0.30 mg/dL 0.20-1.00 [facility] Blood Gases by CPSon 025 ALMA DELIA TEST N/A Normal [facility] Comment on above: Performed By: #### L 9000.0800 ####[facility] [address] [place], [address] Base excess Calc (Bld) [Moles/Vol] -26 mmol/L Low -2 to +2 [facility] Comment on above: Performed By: #### L 9000.0800 ####[facility] [address] [place], [address] Blood Gas Type ART Normal [facility] Comment on above: Performed By: #### L 9000.0800 ####[facility] [address] [place], [address] FI02 30.0 Normal [facility] Comment on above: Performed By: #### L 9000.0800 ####[facility] [address] [place], [address] HCO3 (Bld) [Moles/Vol] 4.0 mmol/L Low 22-26 [facility] Comment on above: Performed By: #### L 9000.0800 ####[facility] [address] [place], [address] Mode AC/PC Normal [facility] Comment on above: Performed By: #### L 9000.0800 ####[facility] [address] [place], [address] O2 Delivery Dev Adult Vent Normal [facility] Comment on above: Performed By: #### L 9000.0800 ####[facility] [address] [place], [address] pCO2 12.9 mmHg Invalid Interpretation Code 35-45 [facility] Comment on above: Performed By: #### L 9000.0800 ####[facility] [address] [place], [address] PEEP 5 Normal [facility] Comment on above: Performed By: #### L 9000.0800 ####[facility] [address] [place], [address] pH (Bld) 7.10 [pH] Invalid Interpretation Code 7.35-7.45 [facility] Comment on above: Performed By: #### L 9000.0800 ####[facility] [address] [place], [address] PO2 144 mmHG High 75-100 [facility] Comment on above: Performed By: #### L 9000.0800 ####[facility] [address] [place], [address] Read Back By Yes [facility] Comment on above: Performed By: #### L 0.0800 ####[facility] [address] [place], [address] Gallardo Normal [facility] Comment on above: Performed By: #### L 9000.0800 ####[facility] [address] [place], [address] RR 16 Normal [facility] Comment on above: Performed By: #### L 9000.0800 ####[facility] [address] [place], [address] SITE L Radial Normal [facility] Comment on above: Performed By: #### L 0.0800 ####[facility] [address] [place], [address] SO2 98 Normal 95-99 [facility] Comment on above: Performed By: #### L 9000.0800 ####[facility] [address] [place], [address] Time Given 22:51:06 [facility] Comment on above: Performed By: #### L 9000.0800 ####[facility] [address] [place], [address] TOTAL CO2 < 5 [facility] Comment on above: Performed By: #### L 9000.0800 ####[facility] [address] [place], [address] ALMA DELIA TEST N/A Normal [facility] Comment on above: Performed By: #### L 9000.0800 ####[facility] [address] [place], [address] Base excess Calc (Bld) [Moles/Vol] -29 mmol/L Low -2 to +2 [facility] Comment on above: Performed By: #### L 9000.0800 ####[facility] [address] [place], [address] Blood Gas Type ART Normal [facility] Comment on above: Performed By: #### L 9000.0800 ####[facility] [address] [place], [address] CO2 [Moles/Vol] 5 mmol/L Normal [facility] Comment on above: Performed By: #### L 9000.0800 ####[facility] [address] [place], [address] Comment AC VC 14 450 +5 45% Normal [facility] Comment on above: Performed By: #### L 9000.0800 ####[facility] [address] [place], [address] FI02 45.0 Normal [facility] Comment on above: Performed By: #### L 9000.0800 ####[facility] [address] [place], [address] HCO3 (Bld) [Moles/Vol] 4.4 mmol/L Low 22-26 [facility] Comment on above: Performed By: #### L 9000.0800 ####[facility] [address] [place], [address] Mode AC Normal [facility] Comment on above: Performed By: #### L 9000.0800 ####[facility] [address] [place], [address] O2 Delivery Dev Adult Vent Normal [facility] Comment on above: Performed By: #### L 9000.0800 ####[facility] [address] [place], [address] pCO2 22.2 mmHg Low 35-45 [facility] Comment on above: Performed By: #### L 9000.0800 ####[facility] [address] [place], [address] pH (Bld) 6.90 [pH] Invalid Interpretation Code 7.35-7.45 [facility] Comment on above: Performed By: #### L 9000.0800 ####[facility] [address] [place], [address] PO2 172 mmHG High 75-100 [facility] Comment on above: Performed By: #### L 9000.0800 ####[facility] [address] [place], [address] Read Back By Yes Normal [facility] Comment on above: Performed By: #### L 9000.0800 ####[facility] [address] [place], [address] SITE R Brach Normal [facility] Comment on above: Performed By: #### L 9000.0800 ####[facility] [address] [place], [address] SO2 98 Normal 95-99 [facility] Comment on above: Performed By: #### L 9000.0800 ####[facility] [address] [place], [address] Blood cultureOrdered By: Alexis Friend on 05-01-2024 Blood culture No growth in 5 days. [facility] Blood culture No growth in 5 days. [facility] CBC W/Diff, Automatedon 04-07 Absolute Lymph 1.26 X10 3/uL Normal 0.83-4.51 [facility] Comment on above: Performed By: #### M 200.1000, L500.4050, L503.6005, L100.0100, L300.3900 ####[facility] [address] [place], [address] Absolute Neut 14.2 X10 3/uL High 2.0-7.7 [facility] Comment on above: Performed By: #### M 200.1000, L500.4050, L503.6005, L100.0100, L300.3900 ####[facility] [address] [place], [address] Basophils/100 WBC (Bld) 0.3 % Normal 0-1 [facility] Comment on above: Performed By: #### M 200.1000, L500.4050, L503.6005, L100.0100, L300.3900 ####[facility] [address] [place], [address] Eosinophils/100 WBC (Bld) 0.4 % Normal 0-5 [facility] Comment on above: Performed By: #### M 200.1000, L500.4050, L503.6005, L100.0100, L300.3900 ####[facility] [address] [place], [address] Erythrocyte distribution width (RBC) [Ratio] 16.6 % High 11.6-14.6 [facility] Comment on above: Performed By: #### M 200.1000, L500.4050, L503.6005, L100.0100, L300.3900 ####[facility] [address] [place], [address] Hematocrit (Bld) [Volume fraction] 30.5 % Low 37-47 [facility] Comment on above: Performed By: #### M 200.1000, L500.4050, L503.6005, L100.0100, L300.3900 ####[facility] [address] [place], [address] Hemoglobin (Bld) [Mass/Vol] 9.7 g/dL Low 12.0-15.0 [facility] Comment on above: Performed By: #### M 200.1000, L500.4050, L503.6005, L100.0100, L300.3900 ####[facility] [address] [place], [address] IG% 1.100 High 0.0-0.9 [facility] Comment on above: Result Comment: IG% - Immature Granulocytes (promyelocytes, myelocytes andmetamyelocytes) > 1% indicates that a LEFT SHIFT is Present. Performed By: #### M 200.1000, L500.4050, L503.6005, L100.0100, L300.3900 ####[facility] [address] [place], [address] Lymphocytes/100 WBC (Bld) 7.4 % Low 19-41 [facility] Comment on above: Performed By: #### M 200.1000, L500.4050, L503.6005, L100.0100, L300.3900 ####[facility] [address] [place], [address] MCH (RBC) [Entitic mass] 32.3 pg High 27.0-32.0 [facility] Comment on above: Performed By: #### M 200.1000, L500.4050, L503.6005, L100.0100, L300.3900 ####[facility] [address] [place], [address] MCHC (RBC) [Mass/Vol] 31.8 g/dL Low 32-36 [facility] Comment on above: Performed By: #### M 200.1000, L500.4050, L503.6005, L100.0100, L300.3900 ####[facility] [address] [place], [address] MCV (RBC) [Entitic vol] 101.7 fL High 81-99 [facility] Comment on above: Performed By: #### M 200.1000, L500.4050, L503.6005, L100.0100, L300.3900 ####[facility] [address] [place], [address] Monocytes/100 WBC (Bld) 7.5 % Normal 0-10 [facility] Comment on above: Performed By: #### M 200.1000, L500.4050, L503.6005, L100.0100, L300.3900 ####[facility] [address] [place], [address] Neutrophils/100 WBC (Bld) 83.3 % High 47-70 [facility] Comment on above: Performed By: #### M 200.1000, L500.4050, L503.6005, L100.0100, L300.3900 ####[facility] [address] [place], [address] Nucleated RBC (Bld) [#/Vol] 0.4 10*3/uL Normal 0-5 [facility] Comment on above: Performed By: #### M 200.1000, L500.4050, L503.6005, L100.0100, L300.3900 ####[facility] [address] [place], [address] Platelet mean volume (Bld) [Entitic vol] 12.8 fL High 6.2-12.0 [facility] Comment on above: Performed By: #### M 200.1000, L500.4050, L503.6005, L100.0100, L300.3900 ####[facility] [address] [place], [address] Platelets (Bld) [#/Vol] 286 10*3/uL Normal 150-450 [facility] Comment on above: Performed By: #### M 200.1000, L500.4050, L503.6005, L100.0100, L300.3900 ####[facility] [address] [place], [address] RBC (Bld) [#/Vol] 3.00 10*6/uL Low 4.2-5.4 [facility] Comment on above: Performed By: #### M 200.1000, L500.4050, L503.6005, L100.0100, L300.3900 ####[facility] [address] [place], [address] RDW SD 61.4 fl High 35.1-43.9 [facility] Comment on above: Performed By: #### M 200.1000, L500.4050, L503.6005, L100.0100, L300.3900 ####[facility] [address] [place], [address] WBC (Bld) [#/Vol] 17.0 10*3/uL High 4.4-11.0 [facility] Comment on above: Performed By: #### M 200.1000, L500.4050, L503.6005, L100.0100, L300.3900 ####[facility] [address] [place], [address] CDIFF (PCR)on 05-01-2024 CDIFF Is the patient recei ving laxatives? N Pending 027 027 NAP1-B1 Presumptive Negative *for epidemiolologic???use C. Diff PCR Negative- No toxigenic C. Diff Detected Normal [facility] Comment on above: Performed By: #### M 100.6796 ####[facility] [address] [place], [address] CO2 (BldV) [Moles/Vol]Ordere d By: Alexis Friend on 05-01-2024 Venous blood total carbon dioxide measurement < 5 mmol/L Low 23-33 [facility] CO2 (BldV) [Partial pressure ]Ordered By: Alexis Friend on 05-01-2024 Venous blood partial pressure of carbon dioxide measurement 14.1 mmHg Low 41-51 [facility] CPK Total, Creatine Kinaseon 05-01-2024 CPK TOTAL 487 U/L High 26-192 [facility] Comment on above: Order Comment: Comme nts: DC when propofol is d/c'dDC when propofol is d/c'd Performed By: #### L 501.3620, L501.5000 ####[facility] [address] [place], [address] Chest 1 View (Portable)on Chest 1 View (Portable) Normal [facility] Chest 1 View (Portable) Normal [facility] Clarity (U)Ordered By: Alexis G allo on 05-01-2024 Urine clarity Cloudy Clear [facility] Color (U)Ordered By: Alexis Gal lo on 05-01-2024 Urine color determination Yellow Yellow [facility] Comprehensive Metabolic Prof ilon 05-01-2024 Albumin [Mass/Vol] 2.8 g/dL Low 3.2-5.0 [facility] Comment on above: Order Comment: Blood cultures x2, from two different sites Performed By: #### M 200.1000, L500.4050, L503.6005, L100.0100, L300.3900 ####[facility] [address] [place], [address] Albumin/Globulin [Mass ratio] 0.8 {ratio} Low 0.9-2.4 [facility] Comment on above: Order Comment: Blood cultures x2, from two different sites Performed By: #### M 200.1000, L500.4050, L503.6005, L100.0100, L300.3900 ####[facility] [address] [place] [place], [address] ALK P 97 U/L Normal 45-117 [facility] Comment on above: Order Comment: Blood cultures x2, from two different sites Performed By: #### M 200.1000, L500.4050, L503.6005, L100.0100, L300.3900 ####[facility] [address] [place], [address] ALT [Catalytic activity/Vol] 18 U/L Normal 13-56 [facility] Comment on above: Order Comment: Blood cultures x2, from two different sites Performed By: #### M 200.1000, L500.4050, L503.6005, L100.0100, L300.3900 ####[facility] [address] [place], [address] AST [Catalytic activity/Vol] 22 U/L Normal 15-37 [facility] Comment on above: Order Comment: Blood cultures x2, from two different sites Performed By: #### M 200.1000, L500.4050, L503.6005, L100.0100, L300.3900 ####[facility] [address] [place], [address] Bilirubin [Mass/Vol] 0.30 mg/dL Normal 0.20-1.00 [facility] Comment on above: Order Comment: Blood cultures x2, from two different sites Result Comment: For patients on eltrombopag therapy, use of Dimension [place] TBIL is not recommended. Performed By: #### M 200.1000, L500.4050, L503.6005, L100.0100, L300.3900 ####[facility] [address] [place], [address] BUN/CRE 19.9 RATIO Normal 10-20 [facility] Comment on above: Order Comment: Blood cultures x2, from two different sites Performed By: #### M 200.1000, L500.4050, L503.6005, L100.0100, L300.3900 ####[facility] [address] [place], [address] CA,Total 8.4 mg/dL Low 8.5-10.1 [facility] Comment on above: Order Comment: Blood cultures x2, from two different sites Performed By: #### M 200.1000, L500.4050, L503.6005, L100.0100, L300.3900 ####[facility] [address] [place], [address] Chloride [Moles/Vol] 121 mmol/L High 98-107 [facility] Comment on above: Order Comment: Blood cultures x2, from two different sites Performed By: #### M 200.1000, L500.4050, L503.6005, L100.0100, L300.3900 ####[facility] [address] [place], [address] CO2 [Moles/Vol] 4.0 mmol/L Invalid Interpretation Code 21.0-32.0 [facility] Comment on above: Order Comment: Blood cultures x2, from two different sites Result Comment: Crit ical Result(s) Called at: 13:35:09 05/01/2024 by: Maye to (ER). Results read back by same. Performed By: #### M 200.1000, L500.4050, L503.6005, L100.0100, L300.3900 ####[facility] [address] [place], [address] Creatinine [Mass/Vol] 7.93 mg/dL Invalid Interpretation Code 0.55-1.02 [facility] Comment on above: Order Comment: Blood cultures x2, from two different sites Result Comment: Crit ical Result(s) Called at: 13:35:09 05/01/2024 by: Maye to (ER). Results read back by same.The validity of the calculated GFR GFRAA in patients over70 years has not been determined. Clinical correlation isessential. Performed By: #### M 200.1000, L500.4050, L503.6005, L100.0100, L300.3900 ####[facility] [address] [place], [address] EST GFR - AA 6 mL/min Low >60 [facility] Comment on above: Order Comment: Blood cultures x2, from two different sites Result Comment: Afri can Colombian GFR Calc Performed By: #### M 200.1000, L500.4050, L503.6005, L100.0100, L300.3900 ####[facility] [address] [place], [address] GAP 18 High 5-15 [facility] Comment on above: Order Comment: Blood cultures x2, from two different sites Performed By: #### M 200.1000, L500.4050, L503.6005, L100.0100, L300.3900 ####[facility] [address] [place] [place], [address] GFR/1.73 sq M.predicted among non-blacks MDRD (S/P/Bld) [Vol rate/Area] 5 mL/min/{1.73_m2} Low >60 [facility] Comment on above: Order Comment: Blood cultures x2, from two different sites Result Comment: Non- GFR Calc Performed By: #### M 200.1000, L500.4050, L503.6005, L100.0100, L300.3900 ####[facility] [address] [place], [address] Globulin (S) [Mass/Vol] 3.7 g/dL Normal 2.2-4.2 [facility] Comment on above: Order Comment: Blood cultures x2, from two different sites Performed By: #### M 200.1000, L500.4050, L503.6005, L100.0100, L300.3900 ####[facility] [address] [place], [address] Glucose [Mass/Vol] 69 mg/dL Low 74-106 [facility] Comment on above: Order Comment: Blood cultures x2, from two different sites Performed By: #### M 200.1000, L500.4050, L503.6005, L100.0100, L300.3900 ####[facility] [address] [place], [address] Potassium [Moles/Vol] 6.1 mmol/L Invalid Interpretation Code 3.5-5.1 [facility] Comment on above: Order Comment: Blood cultures x2, from two different sites Result Comment: Crit ical Result(s) Called at: 13:35:09 05/01/2024 by: Maye to (ER). Results read back by same. Performed By: #### M 200.1000, L500.4050, L503.6005, L100.0100, L300.3900 ####[facility] [address] [place], [address] Sodium [Moles/Vol] 142 mmol/L Normal 136-145 [facility] Comment on above: Order Comment: Blood cultures x2, from two different sites Performed By: #### M 200.1000, L500.4050, L503.6005, L100.0100, L300.3900 ####[facility] [address] [place], [address] T PROT 6.5 g/dL Normal 6.4-8.2 [facility] Comment on above: Order Comment: Blood cultures x2, from two different sites Performed By: #### M 200.1000, L500.4050, L503.6005, L100.0100, L300.3900 ####[facility] [address] [place], [address] Urea nitrogen [Mass/Vol] 158 mg/dL Invalid Interpretation Code 7-18 [facility] Comment on above: Order Comment: Blood cultures x2, from two different sites Result Comment: Crit ical Result(s) Called at: 13:35:09 05/01/2024 by: Maye Reddy (ER). Results read back by same. Performed By: #### M 200.1000, L500.4050, L503.6005, L100.0100, L300.3900 ####[facility] [address] [place], [place], [id number] Consultation - Intensiviston 05-01-2024 Consultation - Support Group Manager Normal [facility] Emergency Department Summary on 05-01-2024 Emergency Department Summary Normal [facility] Epithelial cells.renal LM.HP F (Urine sed) [#/Area]Ordered By: Alexis Friend on 05-01-2024 Urine sediment renal epithelial cell count by microscopy (number/high power field) 25-50 SEEN /hpf 0-5 [facility] H AND P Exam - Hospitaliston 05-01-2024 H&P Exam - Hospitalist Normal [facility] Ketones Test strip Ql (U)Ord ered By: Alexis Friend on 05-01-2024 Urine ketones detection by test strip 5 mg/dl High Negative [facility] Lactic Acidon 05-01-2024 Lactate [Moles/Vol] 0.8 mmol/L Normal 0.4-1.9 [facility] Comment on above: Order Comment: Y Performed By: #### M 200.1000, L500.4050, L503.6005, L100.0100, L300.3900 ####[facility] [address] [place], [place], [id number] Lactic acid measurementOrder ed By: Alexis Friend on 05-01-2024 Lactic acid measurement 0.8 mmol/L 0.4-2.0 [facility] Legionella Antigen Urineon 0 05-01-2024 LEGU Normal [facility] Comment on above: Performed By: #### M 300.4600, M300.4500 ####[facility] [address] [place], [place], [id number] Leukocyte esterase Test stri p Ql (U)Ordered By: Alexis Friend on 05-01-2024 Urine leukocyte esterase detection by dipstick 500 /ul High Negative [facility] M100.678on 05-01-2024 M100.678 Pending SARS-CoV-2 (COVID 19) Negative INFLUENZA A Negative INFLUENZA B Negative RSV PCR Negative Normal [facility] Comment on above: Performed By: #### M 100.678 ####[facility] [address] [place], [place], [id number] Microorganism identified Cx Nom (Unsp spec)Ordered By: Bernarda Becerril on 05-01-2024 Microbial respiratory culture or Staphylococcus aureus isolated. [facility] Microscopic analysis of urin e for red blood cells (RBC)Ordered By: Alexis Friend on 05-01-2024 Microscopic analysis of urine for red blood cells (RBC) 5-10 SEEN /hpf 5-10 [facility] Mucus LM Ql (Urine sed)Order ed By: Alexis Friend on 05-01-2024 Mucus detection in urine sediment by light microscopy 0 SEEN /hpf [facility] Nitrite Test strip Ql (U)Ord ered By: Alexis Friend on 05-01-2024 Urine nitrite test by dipstick Negative Negative [facility] No Panel InformationOrdered By: Bernarda Becerril on 05-01-2024 AC VC 14 450 +5 45% [facility] No Panel InformationOrdered By: Alexis Friend on 05-01-2024 22 U/L 15-37 [facility] Oxygen (BldV) [Partial press ure]Ordered By: Alexis Friend on 05-01-2024 Venous blood partial pressure of oxygen measurement 199 mmHg High 25-40 [facility] Partial Thromboplast Timeon 05-01-2024 aPTT Coag (d) [Time] 31.2 s Normal 24.1-36.2 [facility] Comment on above: Order Comment: JOHANNA Ambrocio. PREVIOUS SPECIMEN REJECTED DUE TOSPECIMEN BEING HEMOLYZED. 05/01/24 1328 Pratik Pop Performed By: #### L 300.0720, L300.3900 ####[facility] [address] [facility] [place], [address] Protein Test strip Ql (U)Ord ered By: Alexis Friend on 05-01-2024 Urine protein assay by test strip, semi-quantitative 100 mg/dl High Negative [facility] Prothrombin Time w/INRon INR Coag (PPP) [Relative time] 1.3 {INR} Normal [facility] Comment on above: Order Comment: REDRA W. PREVIOUS SPECIMEN REJECTED DUE TOSPECIMEN BEING HEMOLYZED. 05/01/241327 Pratik Matthewsr. Performed By: #### L 300.4310, L300.3900 ####[facility] [address] [place], [address] PT Coag (PPP) [Time] 16.2 s High 11.7-14.9 [facility] Comment on above: Order Comment: REDRA W. PREVIOUS SPECIMEN REJECTED DUE TOSPECIMEN BEING HEMOLYZED. 05/01/241327 Pratik Matthewsr. Performed By: #### L 300.4310, L300.3900 ####[facility] [address] [place], [address] INR Normal [facility] Comment on above: Result Comment: This specimen has been REJECTED due to Laboratory criteria:Hemolyzed.ED STAFF has been notified of need of recollection.05/01/241326 Pratik Matthewsr Performed By: #### M 200.1000, L500.4050, L503.6005, L100.0100, L300.3900 ####[facility] [address] [place], [address] PROTIME Normal 11.7-14.9 [facility] Comment on above: Result Comment: This specimen has been REJECTED due to Laboratory criteria:Hemolyzed.ED STAFF has been notified of need of recollection.05/01/241326 Pratik Matthewsr Performed By: #### M 200.1000, L500.4050, L503.6005, L100.0100, L300.3900 ####[facility] [address] [place], [address] RESPIRATORY PANEL MOLECULARo n 05-01-2024 RP PANEL Normal [facility] Comment on above: Performed By: #### M 100.638 ####[facility] [address] [place], [place], [id number] Serum globulin measurementOr dered By: Alexis Friend on 05-01-2024 Serum globulin measurement 3.7 g/dL 2.2-4.2 [facility] Specific gravity (U) [Rel de nsity]Ordered By: Alexis Friend on 05-01-2024 Urine specific gravity measurement 1.020 1.002-1.03 0 [facility] Strep pneumoniae Antig(UR,CS F)on 05-01-2024 STPAG Normal [facility] Comment on above: Performed By: #### M 300.5030, M300.4500 ####[facility] [address] [place], [place], [id number] Total creatine kinase measur ementOrdered By: Kin Young on 05-01-2024 Total creatine kinase measurement 487 U/L High 26-192 [facility] Total proteinOrdered By: Alexis Friend on 05-01-2024 Total protein 6.5 g/dL 6.4-8.2 [facility] Transitional cells LM Ql (Ur ine sed)Ordered By: Alexis Friend on 05-01-2024 Transitional cells detection in urine sediment by light microscopy 0-5 SEEN /hpf 0-5 [facility] Triglycerideson 05-01-2024 Triglyceride [Mass/Vol] 182 mg/dL Normal [facility] Comment on above: Order Comment: Comme nts: DC when propofol is d/c'dDC when propofol is d/c'd Result Comment: The drugs N-Acetylcysteine and Metamizole may falselydepress this assay.Serum Triglycerides Reference Interval Normal <150 mg/dL Borderline high 150 - 199 mg/dL High 200 - 499 mg/dL Very High > or = 500 mg/dL Performed By: #### L 501.3620, L501.5000 ####[facility] [address] [place], [place], [id number] Triglycerides measurementOrd ered By: Kin Young on 05-01-2024 Triglycerides measurement 182 mg/dL <199 [facility] Urinalysis, Completeon 05-01 BACTERIA 3+ /hpf Normal None Seen [facility] Comment on above: Order Comment: SUSAN TER SPECIMEN Performed By: #### M 100.2200, L400.0001 ####[facility] [address] [place], [address] EPI,RENAL 25-50 SEEN Normal 0-5 [facility] Comment on above: Order Comment: SUSAN TER SPECIMEN Performed By: #### M 100.2200, L400.0001 ####[facility] [address] [place], [address] EPI,SQUAMOUS 5-10 SEEN Normal 5-10 [facility] Comment on above: Order Comment: SUSAN TER SPECIMEN Performed By: #### M 100.2200, L400.0001 ####[facility] [address] [place], [address] EPI,TRANSITION 0-5 SEEN Normal 0-5 [facility] Comment on above: Order Comment: SUSAN TER SPECIMEN Performed By: #### M 100.2200, L400.0001 ####[facility] [address] [place], [address] RBC 5-10 SEEN Normal 0-5 [facility] Comment on above: Order Comment: SUSAN TER SPECIMEN Performed By: #### M 100.2200, L400.0001 ####[facility] [address] [place], [address] WBC 50-100 SEEN Normal 0-5 [facility] Comment on above: Order Comment: SUSAN TER SPECIMEN Performed By: #### M 100.2200, L400.0001 ####[facility] [address] [place], [address] Mucus Ql (Urine sed) 0 SEEN Normal [facility] Comment on above: Order Comment: SUSAN TER SPECIMEN Performed By: #### M 100.2200, L400.0001 ####[facility] [address] [place], [address] Urine blood detectionOrdered By: Alexis Friend on 05-01-2024 Urine blood detection 150 /ul High Negative [facility] Urine cultureOrdered By: Alexis Friend on 05-01-2024 Urine culture Escherichia coli Abnormal [facility] Urine glucose detectionOrder ed By: Alexis Friend on 05-01-2024 Urine glucose detection Normal mg/dl Normal [facility] Venous blood bicarbonate duke surementOrdered By: Alexis Friend on 05-01-2024 Venous blood bicarbonate measurement 4 mmol/L Low 22-26 [facility] Venous blood oxygen saturati on measurementOrdered By: Alexisomega Friend on 05-01-2024 Venous blood oxygen saturation measurement 99 % High 50-70 [facility] White blood cell countOrdere d By: Alexis Phuc on 05-01-2024 White blood cell count 50-100 SEEN /hpf 0-5 [facility] pH (BldV)Ordered By: Alexis pardo on 05-01-2024 Venous blood pH measurement 7.02 Low 7.32-7.42 [facility] pH (U)Ordered By: Alexisomega Friend on 05-01-2024 Urine pH 5.0 5.0 - 8.0 [facility] CNOVon 03-16-2024 CNOV Office Visit (JULIANNPWS ) MARI LOPEZ ([id number]) 1940 F Date Time Provider Department 03/16/24 11:20 AM MIRYAM OROZCO During your visit today, we recorded the following information about you: Pulse Respiration Blood pressure Weight 56/minute 16/minute 110/66 104.8 kg Miryam Orozco APRN.CNP 03/16/2024 11:39 AM Addendum Have consult with endocrinology, Dr. Cowart at [facility] to discuss thyroid and elevated PTH. Recommending Taking synthroid daily for 6 days and 1/2 tab one day. Schedule Follow-up with pulmonology to go over sleep study results. Get repeat labs in 6-8 weeks. May apply Bactroban ointment to skin Continue to take all medication as prescribed Complete the bone density testing Keep scheduled appointment with surgeon Continue with physical therapy Follow up as scheduled or sooner pending test results. BONE MINERAL DENSITY PATIENT INSTRUCTIONS Bone mineral density testing measures the amount of calcium in certain parts of your bones. This information determines how strong your bones are. The test is used to detect osteoporosis, a disease in which the bone's mineral content and density are low, increasing a person's risk of fractures. The lumbar spine (lower back) and the hip are the skeletal sites usually examined. For the test, remember that: 1. You cannot take this test if you are . 2. Eat a normal diet on the day of the test. 3. Take your medications as you normally would. 4. DO NOT take calcium supplements (such as Tums) for 24 hours before the test. 5. On the day of the test, leave valuables (jewelry or credit cards) at home. 6. The test should be performed prior to oral, rectal or IV contrast studies, or at least 7 days after any of these studies. For the test, you may be asked to wear a hospital gown. You will lie on your back, on a padded table, in a comfortable position. Generally, you can resume your usual activities immediately. Miryam Orozco APRN.DIGITAL DATA ANALYST 03/16/2024 4:44 PM Signed This is a 83 year old female who presents today with: No chief complaint on file. HISTORY OF PRESENT ILLNESS: Mari Lopez is a 83 year old female. No chief complaint on file. 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 Which facility: [facility] Date of visit: 02/25/2024-03/02/2024 Diagnosis: S/P left shoulder Testing done: Thyroid, B12, and folate were normal. Iron saturation low at 6.6%. Reticulocyte count is significantly increased. Treatment given: IV iron circularized 100 mg, started on ferrous sulfate 325 mg daily with ascorbic acid 1000 mg at lunch. Hemoccult stool was negative. TSH was low 0.44 and T4 was elevated 1.68, endocrinology, Dr. Cowart recommend decreasing levothyroxine to half tab 1 day a week and continue 125 mcg daily all other days. Will follow-up with endocrinology for further evaluation as well as discuss elevated PTH at 196. Bone density was ordered. Vitamin D was 28.3 recommending being greater than 30. History of TADEO, quit CPAP when she had gastric bypass surgery. Overnight trending pulse ox abnormal with several desaturation events. Split sleep study ordered for 03/04/2024, will follow-up with [facility] pulmonary medicine to go over results. Discharge with PT at [facility]. Instructed to follow-up with surgeon, Dr. Carson. Placed on doxycycline due to arm pain to cover for possible cellulitis where IV was placed. Venous Doppler was negative for any thrombosis in the arm. Needs to complete bone density. Current symptoms: Had follow up with Surgeon, still wearing sling until March 21, still doing PT twice weekly, at [facility]. Doing well since surgery. Next following in April. Taking Iron, Vitamin C, and folate daily. Diagnosed with BAYRON. Completed sleep study, no results for my review at this time. Needs to schedule follow-up with pulmonology and consult with endocrinology. Refers that she was not aware that she needed to make changes to her levothyroxine dosing. Skin irritation started on abdomen due to depend rubbing. Has been putting a piece of cloth between skin fold to reduce irritation. PAST MEDICAL HISTORY: PAST MEDICAL HISTORY Diagnosis [...] CONDYLEANDPLATU MEDIALANDLAT COMPARTMENTS 1990 bilateral total knee s(Bosto (more content not included)... Normal [facility] Inital Evaluation (1) - PTon 03-10-2024 Inital Evaluation (1) - PT Normal [facility] Discharge Instructionon 02-05 Discharge Instruction Normal [facility] CBC W/Diff, Automatedon 02-05 Absolute Lymph 1.21 X10 3/uL Normal 0.83-4.51 [facility] Comment on above: Performed By: #### L 100.0100 ####[facility] [address] [place], [address] Absolute Neut 5.7 X10 3/uL Normal 2.0-7.7 [facility] Comment on above: Performed By: #### L 100.0100 ####[facility] [address] [place], [address] Basophils/100 WBC (Bld) 0.5 % Normal 0-1 [facility] Comment on above: Performed By: #### L 100.0100 ####[facility] [address] [place], [address] Eosinophils/100 WBC (Bld) 7.1 % High 0-5 [facility] Comment on above: Performed By: #### L 100.0100 ####[facility] [address] [place], [address] Erythrocyte distribution width (RBC) [Ratio] 13.4 % Normal 11.6-14.6 [facility] Comment on above: Performed By: #### L 100.0100 ####[facility] [address] [place], [address] Hematocrit (Bld) [Volume fraction] 35.0 % Low 37-47 [facility] Comment on above: Performed By: #### L 100.0100 ####[facility] [address] [place], [address] Hemoglobin (Bld) [Mass/Vol] 10.3 g/dL Low 12.0-15.0 [facility] Comment on above: Performed By: #### L 100.0100 ####[facility] [address] [place], [address] IG% 0.900 Normal 0.0-0.9 [facility] Comment on above: Result Comment: IG% - Immature Granulocytes (promyelocytes, myelocytes andmetamyelocytes) > 1% indicates that a LEFT SHIFT is Present. Performed By: #### L 100.0100 ####[facility] [address] [place], [address] Lymphocytes/100 WBC (Bld) 14.9 % Low 19-41 [facility] Comment on above: Performed By: #### L 100.0100 ####[facility] [address] [place], [address] MCH (RBC) [Entitic mass] 32.3 pg High 27.0-32.0 [facility] Comment on above: Performed By: #### L 100.0100 ####[facility] [address] [place], [address] MCHC (RBC) [Mass/Vol] 29.4 g/dL Low 32-36 [facility] Comment on above: Performed By: #### L 100.0100 ####[facility] [address] [place], [address] MCV (RBC) [Entitic vol] 109.7 fL High 81-99 [facility] Comment on above: Performed By: #### L 100.0100 ####[facility] [address] [place], [address] Monocytes/100 WBC (Bld) 6.6 % Normal 0-10 [facility] Comment on above: Performed By: #### L 100.0100 ####[facility] [address] [place], [address] Neutrophils/100 WBC (Bld) 70.0 % Normal 47-70 [facility] Comment on above: Performed By: #### L 100.0100 ####[facility] [address] [place], [id number] Nucleated RBC (Bld) [#/Vol] 0 10*3/uL Normal 0-5 [facility] Comment on above: Performed By: #### L 100.0100 ####[facility] [address] [place], [id number] Platelet mean volume (Bld) [Entitic vol] 12.3 fL High 6.2-12.0 [facility] Comment on above: Performed By: #### L 100.0100 ####[facility] [address] [place], [id number] Platelets (Bld) [#/Vol] 255 10*3/uL Normal 150-450 [facility] Comment on above: Performed By: #### L 100.0100 ####[facility] [address] [place], [address] RBC (Bld) [#/Vol] 3.19 10*6/uL Low 4.2-5.4 [facility] Comment on above: Performed By: #### L 100.0100 ####[facility] [address] [place], [id number] RDW SD 54.3 fl High 35.1-43.9 [facility] Comment on above: Performed By: #### L 100.0100 ####[facility] [address] [place], [id number] WBC (Bld) [#/Vol] 8.1 10*3/uL Normal 4.4-11.0 [facility] Comment on above: Performed By: #### L 100.0100 ####[facility] [address] [place], [address] Venous Duplex US, Unilateral on 02-29-2024 Venous Duplex US, Unilateral Normal [facility] Urinalysis, Completeon 02-25 BACTERIA 3+ /hpf Normal None Seen [facility] Comment on above: Order Comment: SUSAN TER SPECIMEN Performed By: #### L 400.0001 ####[facility] [address] [place], [address] EPI,SQUAMOUS 0-5 SEEN Normal 5-10 [facility] Comment on above: Order Comment: SUSAN TER SPECIMEN Performed By: #### L 400.0001 ####[facility] [address] [place], [address] RBC 0-5 SEEN Normal 0-5 [facility] Comment on above: Order Comment: SUSAN TER SPECIMEN Performed By: #### L 400.0001 ####[facility] [address] [place], [address] WBC 10-25 SEEN Normal 0-5 [facility] Comment on above: Order Comment: SUSAN TER SPECIMEN Performed By: #### L 400.0001 ####[facility] [address] [place], [address] Mucus Ql (Urine sed) 0 SEEN Normal [facility] Comment on above: Order Comment: SUSAN TER SPECIMEN Performed By: #### L 400.0001 ####[facility] [address] [place], [address] CBC W/Diff, Automatedon 02-05 Absolute Lymph 1.82 X10 3/uL Normal 0.83-4.51 [facility] Comment on above: Performed By: #### L 100.0100, L501.5200, L501.2300, L500.4050 ####[facility] [address] [place], [address] Absolute Neut 3.9 X10 3/uL Normal 2.0-7.7 [facility] Comment on above: Performed By: #### L 100.0100, L501.5200, L501.2300, L500.4050 ####[facility] [address] [place], [address] Basophils/100 WBC (Bld) 0.6 % Normal 0-1 [facility] Comment on above: Performed By: #### L 100.0100, L501.5200, L501.2300, L500.4050 ####[facility] [address] [place], [address] Eosinophils/100 WBC (Bld) 5.8 % High 0-5 [facility] Comment on above: Performed By: #### L 100.0100, L501.5200, L501.2300, L500.4050 ####[facility] [address] [place], [address] Erythrocyte distribution width (RBC) [Ratio] 13.6 % Normal 11.6-14.6 [facility] Comment on above: Performed By: #### L 100.0100, L501.5200, L501.2300, L500.4050 ####[facility] [address] [place], [address] Hematocrit (Bld) [Volume fraction] 33.3 % Low 37-47 [facility] Comment on above: Performed By: #### L 100.0100, L501.5200, L501.2300, L500.4050 ####[facility] [address] [place], [address] Hemoglobin (Bld) [Mass/Vol] 10.2 g/dL Low 12.0-15.0 [facility] Comment on above: Performed By: #### L 100.0100, L501.5200, L501.2300, L500.4050 ####[facility] [address] [place], [address] IG% 0.400 Normal 0.0-0.9 [facility] Comment on above: Result Comment: IG% - Immature Granulocytes (promyelocytes, myelocytes andmetamyelocytes) > 1% indicates that a LEFT SHIFT is Present. Performed By: #### L 100.0100, L501.5200, L501.2300, L500.4050 ####[facility] [address] [place], [address] Lymphocytes/100 WBC (Bld) 26.2 % Normal 19-41 [facility] Comment on above: Performed By: #### L 100.0100, L501.5200, L501.2300, L500.4050 ####[facility] [address] [place], [address] MCH (RBC) [Entitic mass] 32.8 pg High 27.0-32.0 [facility] Comment on above: Performed By: #### L 100.0100, L501.5200, L501.2300, L500.4050 ####[facility] [address] [place], [address] MCHC (RBC) [Mass/Vol] 30.6 g/dL Low 32-36 [facility] Comment on above: Performed By: #### L 100.0100, L501.5200, L501.2300, L500.4050 ####[facility] [address] [place], [address] MCV (RBC) [Entitic vol] 107.1 fL High 81-99 [facility] Comment on above: Performed By: #### L 100.0100, L501.5200, L501.2300, L500.4050 ####[facility] [address] [place], [id number] Monocytes/100 WBC (Bld) 10.5 % High 0-10 [facility] Comment on above: Performed By: #### L 100.0100, L501.5200, L501.2300, L500.4050 ####[facility] [address] [place], [address] Neutrophils/100 WBC (Bld) 56.5 % Normal 47-70 [facility] Comment on above: Performed By: #### L 100.0100, L501.5200, L501.2300, L500.4050 ####[facility] [address] [place], [address] Nucleated RBC (Bld) [#/Vol] 0 10*3/uL Normal 0-5 [facility] Comment on above: Performed By: #### L 100.0100, L501.5200, L501.2300, L500.4050 ####[facility] [address] [place], [address] Platelet mean volume (Bld) [Entitic vol] 12.2 fL High 6.2-12.0 [facility] Comment on above: Performed By: #### L 100.0100, L501.5200, L501.2300, L500.4050 ####[facility] [address] [place], [address] Platelets (Bld) [#/Vol] 183 10*3/uL Normal 150-450 [facility] Comment on above: Performed By: #### L 100.0100, L501.5200, L501.2300, L500.4050 ####[facility] [address] [place], [address] RBC (Bld) [#/Vol] 3.11 10*6/uL Low 4.2-5.4 [facility] Comment on above: Performed By: #### L 100.0100, L501.5200, L501.2300, L500.4050 ####[facility] [address] [place], [address] RDW SD 53.3 fl High 35.1-43.9 [facility] Comment on above: Performed By: #### L 100.0100, L501.5200, L501.2300, L500.4050 ####[facility] [address] [place], [address] WBC (Bld) [#/Vol] 6.9 10*3/uL Normal 4.4-11.0 [facility] Comment on above: Performed By: #### L 100.0100, L501.5200, L501.2300, L500.4050 ####[facility] [address] [place], [address] Comprehensive Metabolic Prof [facility] 02-25-2024 Albumin [Mass/Vol] 2.5 g/dL Low 3.2-5.0 [facility] Comment on above: Performed By: #### L 100.0100, L501.5200, L501.2300, L500.4050 ####[facility] [address] [place], [address] Albumin/Globulin [Mass ratio] 0.7 {ratio} Low 0.9-2.4 [facility] Comment on above: Performed By: #### L 100.0100, L501.5200, L501.2300, L500.4050 ####[facility] [address] [place], [address] ALK P 62 U/L Normal 45-117 [facility] Comment on above: Performed By: #### L 100.0100, L501.5200, L501.2300, L500.4050 ####[facility] [address] [place], [address] ALT [Catalytic activity/Vol] 20 U/L Normal 13-56 [facility] Comment on above: Performed By: #### L 100.0100, L501.5200, L501.2300, L500.4050 ####[facility] [address] [place], [address] AST [Catalytic activity/Vol] 22 U/L Normal 15-37 [facility] Comment on above: Performed By: #### L 100.0100, L501.5200, L501.2300, L500.4050 ####[facility] [address] [place], [address] Bilirubin [Mass/Vol] 0.30 mg/dL Normal 0.20-1.00 [facility] Comment on above: Result Comment: For patients on eltrombopag therapy, use of Dimension [place] TBIL is not recommended. Performed By: #### L 100.0100, L501.5200, L501.2300, L500.4050 ####[facility] [address] [place], [address] BUN/CRE 44.2 RATIO High 10-20 [facility] Comment on above: Performed By: #### L 100.0100, L501.5200, L501.2300, L500.4050 ####[facility] [address] [place], [address] CA,Total 8.1 mg/dL Low 8.5-10.1 [facility] Comment on above: Performed By: #### L 100.0100, L501.5200, L501.2300, L500.4050 ####[facility] [address] [place], [address] Chloride [Moles/Vol] 114 mmol/L High 98-107 [facility] Comment on above: Performed By: #### L 100.0100, L501.5200, L501.2300, L500.4050 ####[facility] [address] [place], [address] CO2 [Moles/Vol] 18.0 mmol/L Low 21.0-32.0 [facility] Comment on above: Performed By: #### L 100.0100, L501.5200, L501.2300, L500.4050 ####[facility] [address] [place], [address] Creatinine [Mass/Vol] 1.56 mg/dL High 0.55-1.02 [facility] Comment on above: Result Comment: The validity of the calculated GFR GFRAA in patients over70 years has not been determined. Clinical correlation isessential. Performed By: #### L 100.0100, L501.5200, L501.2300, L500.4050 ####[facility] [address] [place], [address] EST GFR - AA 41 mL/min Low >60 [facility] Comment on above: Result Comment: Afri can Colombian GFR Calc Performed By: #### L 100.0100, L501.5200, L501.2300, L500.4050 ####[facility] [address] [place], [address] GAP 6 Normal 5-15 [facility] Comment on above: Performed By: #### L 100.0100, L501.5200, L501.2300, L500.4050 ####[facility] [address] [place], [address] GFR/1.73 sq M.predicted among non-blacks MDRD (S/P/Bld) [Vol rate/Area] 34 mL/min/{1.73_m2} Low >60 [facility] Comment on above: Result Comment: Non- GFR Calc Performed By: #### L 100.0100, L501.5200, L501.2300, L500.4050 ####[facility] [address] [place], [address] Globulin (S) [Mass/Vol] 3.5 g/dL Normal 2.2-4.2 [facility] Comment on above: Performed By: #### L 100.0100, L501.5200, L501.2300, L500.4050 ####[facility] [address] [place], [address] Glucose [Mass/Vol] 109 mg/dL High 74-106 [facility] Comment on above: Result Comment: Fast ing Glucose result from 100 to 125 mg/dLsuggests IMPAIRED HOMEOSTASIS per A.D.A. criteria. Performed By: #### L 100.0100, L501.5200, L501.2300, L500.4050 ####[facility] [address] [place], [address] Potassium [Moles/Vol] 4.6 mmol/L Normal 3.5-5.1 [facility] Comment on above: Performed By: #### L 100.0100, L501.5200, L501.2300, L500.4050 ####[facility] [address] [place], [address] Sodium [Moles/Vol] 138 mmol/L Normal 136-145 [facility] Comment on above: Performed By: #### L 100.0100, L501.5200, L501.2300, L500.4050 ####[facility] [address] [place], [address] T PROT 6.0 g/dL Low 6.4-8.2 [facility] Comment on above: Performed By: #### L 100.0100, L501.5200, L501.2300, L500.4050 ####[facility] [address] [place], [address] Urea nitrogen [Mass/Vol] 69 mg/dL High 7-18 [facility] Comment on above: Performed By: #### L 100.0100, L501.5200, L501.2300, L500.4050 ####[facility] [address] [place], [address] Ferritinon 02-25-2024 Ferritin [Mass/Vol] 94 ng/mL Normal 8-252 [facility] Comment on above: Performed By: #### L 503.6030, L503.6550 ####[facility] [address] [place], [address] Folates, (Folic Acid)on 02-05 FOLATES 29.20 ng/mL Normal 3.1-55.4 [facility] Comment on above: Order Comment: Has P atient had X-rays with Contrast this admission? [place] Result Comment: Slig ht Hemolysis, Result may be falsely increased. Performed By: #### L 506.0250, L506.0400, L501.9520 ####[facility] [address] [place], [address] Iron+Iron Binding Capacityon 02-25-2024 Iron [Mass/Vol] 26 ug/dL Low 50-170 [facility] Comment on above: Result Comment: Slig ht Hemolysis, Result may be falsely increased. Performed By: #### L 503.6030, L503.6550 ####[facility] [address] [place], [address] IRON SATURATION 6.6 Low 15.0-55.0 [facility] Comment on above: Performed By: #### L 503.6030, L503.6550 ####[facility] [address] [place], [address] TIBC 396 ug/dL Normal 250-450 [facility] Comment on above: Performed By: #### L 503.6030, L503.6550 ####[facility] [address] [place], [address] Magnesiumon 02-25-2024 Magnesium [Mass/Vol] 2.1 mg/dL Normal 1.6-2.6 [facility] Comment on above: Performed By: #### L 100.0100, L501.5200, L501.2300, L500.4050 ####[facility] [address] [place], [address] Phosphoruson 02-25-2024 Phosphate [Mass/Vol] 4.6 mg/dL Normal 2.5-4.9 [facility] Comment on above: Performed By: #### L 100.0100, L501.5200, L501.2300, L500.4050 ####[facility] [address] [place], [address] Retic Panelon 02-25-2024 IM RET FRACTION 21.90 High 3.00-15.90 [facility] Comment on above: Performed By: #### L 100.9950 ####[facility] [address] [place], [address] RET-HE 32.4 pg Normal 30-35 [facility] Comment on above: Performed By: #### L 100.9950 ####[facility] [address] [place], [address] Retic Count 2.34 High 0.5-1.5 [facility] Comment on above: Performed By: #### L 100.9950 ####[facility] [address] [place], [address] Stool Occult Blood iFOBon STOB Negative Normal [facility] Comment on above: Performed By: #### M 100.7900 ####[facility] [address] [place], [address] T4 Free Directon 02-25-2024 T4 FREE DIRECT 1.68 ng/dL High 0.76-1.46 [facility] Comment on above: Order Comment: Has P atient had X-rays with Contrast this admission? [place] Performed By: #### L 506.0250, L506.0400, L501.9520 ####[facility] [address] [place], [place], [address] Thyroid Stim Hormone (TSH)on 02-25-2024 TSH 0.449 uIU/mL Normal 0.358-3.74 0 [facility] Comment on above: Order Comment: Has Manuela sen had X-rays with [facility] this admission? [place] Performed By: #### L 506.0250, L506.0400, L501.9520 ####[facility] [address] [place], [place], [address] Vitamin B12on 02-25-2024 Cobalamin (Vitamin B12) [Mass/Vol] 561 pg/mL Normal 211-911 [facility] Comment on above: Performed By: #### L 503.0105 ####[facility] [address] [facility] [place], [place], [address] PT D/C Summary (1)on 024 PT D/C Summary (1) Normal [facility] 02-12-2024 [facility] JOHNMARI Gerry ([id number]) 1940 F Date Time Provider Department 02/12/24 LIZY CAPONE [facility] During your visit today, we recorded the following information about you: Alxe Lackey MA 02/12/2024 9:00 AM Signed Type of letter/form/fax request - medical clearance request for surgery Form received from fax on 1 floor and placed on MD desk (Dr. Capone) for completion. Completed form needs to be faxed to [facility] at [phone]. Pt scheduled for Left reverse total shoulder arthroplasty on 02/22/[address] Klaus Omalley. Pt has PAT on 02/18/24 at [facility]. Pt last OV on 01/28/24 with Miryam Orozco for routine follow up. Route to CT when form completed for processing Lizy Capone MD 02/12/2024 10:00 AM Signed Form done; send with copy of 01/27 note MD Ziyad Masters Kathryn, MA 02/12/2024 10:08 AM Signed OV note and form faxed. Alex Lackey MA Allergies As of Date: 02/12/2024 Noted Allergy Reaction BACTRIM (SULFAMETHOXAZOLE-TRIMETH*0 07/23/2016 4 - Hives Comments: Blisters: head to toe IBUPROFEN 11/08/2015 2 - Rash KEFZOL (CEFAZOLIN SODIUM) 08/09/2018 4 - Hives PEANUT 03/31/2023 10 - Anaphylaxis SULFA (SULFONAMIDE ANTIBIOTICS) 07/23/2016 4 - Hives 16 - Unknown Comments: Blisters: head to toe Date Reviewed: 01/28/2024 Reviewed by: Minna Blue LPN - Fully Assessed Reason for Visit: medical clearance form [Other] Cmt: [facility] for shoulder surgery Prescriptions as of 02/12/2024 - furosemide (LASIX) 40 mg tablet Take 1 tablet by mouth once daily. - zolpidem (AMBIEN) 10 mg Take 1 tablet by mouth at bedtime as needed for up to 90 days. - levothyroxine (LEVOXYL) 125 mcg tablet Take 1 tablet by mouth once daily. Take on empty stomach. For thyroid. - gabapentin (NEURONTIN) 300 mg capsule Take 1 capsule by mouth three times a day for 180 days. Take one pill 3 times per day Do not start before September 28, 2023. - cyclobenzaprine (FLEXERIL) 10 mg tablet Take 1 tablet by mouth three times a day as needed for muscle spasm. - polyethylene glycol 3350 (MIRALAX) 17 gram/dose powder Take by mouth once daily. Dissolve dose in 4 - 8 ounces of liquid and take as directed. - polyethylene glycol 3350 (MIRALAX) 17 gram/dose powder Take once daily - lisinopril-hydroCHLOROthiaz amaya (ZESTORETIC) 10-12.5 mg per tablet Take 1 tablet by mouth once daily. - omeprazole (PRILOSEC) 20 mg capsule Take 1 capsule by mouth once daily. - GEMTESA 75 mg tablet Take 1 tablet by mouth every afternoon. - aspirin, enteric coated (ASPIRIN, ENTERIC COATED) 81 mg EC tablet Take 81 mg by mouth once daily. - tolterodine ER (DETROL LA) 4 mg 24 hr capsule TAKE 1 CAPSULE BY MOUTH ONCE DAILY - acetaminophen (TYLENOL) 500 mg tablet Take 1,000 mg by mouth twice daily. - Diaper,Brief, Adult,Disposable (DEPEND UNDERWEAR FOR WOMEN XL) Use 5/day as needed for urinary incontinence - metoprolol succinate ER (TOPROL XL) 50 mg 24 hr tablet Take by mouth. - Luxfrkiipil-Cfwkbdjww-Wfo C-Mn (GLUCOSAMINE CHONDROITIN MAXSTR) 500-400 mg cap Take 1 capsule by mouth three times daily. - COMPOUNDED PRESCRIPTION Stair lift - DAILY-LUISITO tablet TAKE 1 TABLET BY MOUTH ONCE DAILY. - raylvob-ozxmirjgn-pwisybe D3 (CALCIUM 500+D) 500 mg(1,250mg) -200 unit per tablet Take 1 tablet by mouth twice daily with meals. - vitamin b complex (B COMPLETE) tab Take 1 tablet by mouth once daily. - hydrocortisone (ANUSOL-HC) 2.5 % rectal cream 1 application by RECTAL route twice daily. - calcium acetate (PHOSLO) 667 mg capsule TAKE 1 CAPSULE BY MOUTH THREE TIMES DAILY. - Magnesium 200 mg tab Take 200 mg by mouth once daily. - Zinc 50 mg tab Take 1 tablet by mouth once daily. - cholecalciferol (VITAMIN D3) 1,000 unit tab tablet Take 2 tablets by mouth once daily. - senna-docusate (SENNA-S) 8.6-50 mg per tablet Take 1 tablet by mouth once daily. - ascorbic acid(VITAMIN C 500 MG TAB) Take one(1) tablet daily. - VITAMIN E 400 UNIT CAP Take one(1) tablet twice daily. - pyridoxine hcl(VITAMIN B-6 100 MG TAB) Take one(1) tablet daily. - CENTRUM PERFORMANCE TAB Take one(1) tablet daily. Meds Comments as of 10/27/2016: Magnesium, zinc, Glucosamine-chondroitin, Fish-Oil Problem List As Of Date 02/12/2024 Noted Resolved Class 3 severe obesity with body mass index (BM*06/28/2003 BENIGN HYPERTENSION(aka HTN) [I10] 07/21/2003 ASTHMA UNSPECIFIED [J45.909] 07/21/2003 OTHER UNSPEC SLEEP APNEA(aka APNEA) [G47.30] 07/21/2003 Primary osteoarthritis of both knees [M17.0] 07/21/2003 THROMBOPHLEBITIS NOS(aka DVT) [I80.9] 07/21/2003 08/21/2009 PULMON EMBOLISM/INFARCT(aka EMBOLISM) [415.1] 07/21/2003 08/21/2009 VENTRAL HERNIA NEC [K43.9] 03/26/2004 07/01/2007 ASA CLASS III [1003] 05/07/2005 07/12/2021 INJURY TRUNK SITE NEC [WHX5381] 01/16/2006 07/01/2007 Anemia in (more content not included)... Normal [facility] 12 Lead EKG performed by BMS on 02-09-2024 12 Lead EKG performed by BMS Normal [facility] Cardiology Visit Reporton Cardiology Visit Report Normal [facility] CNOVon 01-28-2024 [facility] MARI LOPEZ ([id number]) 1940 F Date Time Provider Department 01/28/24 9:00 AM MIRYAM OROZCO During your visit today, we recorded the following information about you: Pulse Respiration Blood pressure Weight 77/minute 16/minute 122/60 103.9 kg Miryam Orozco APRN.CJ 01/28/2024 2:38 PM Signed This is a 83 year old female who presents today with: Patient presents with: 6 Month Exam HISTORY OF PRESENT ILLNESS: Mari Lopez is a 83 year old female. Patient presents with: 6 Month Exam 3 month follow up Has been doing PT to help with balance, refers that it has been going well. Was able to stop using cane. Refes that she may need knee replacements in the future. Has recently had some lower BP readings at home. Refers that nephrology noted lower blood pressure reading in their office. Last office visit stopped Amlodipine. Blood pressure 120/60's at home. Dizziness has resolved. History of incontinence, Following with Dr. Hernandez (urology). Taking Gemtesa 75 mg daily, which has been helpful. Cystoscopy normal. Has bathroom schedule to empty bladder. Chronic back pain: Following with pain management, Dr. Delgado, Had SPR device placement/removal. Feelng well. Knee Pain: Using Voltaren gel as needed. Left Shoulder: Has been having ongoing pain for about 5-6 months. Pain is constant. Will be having left shoulder surgery in February with [facility], Dr. Omalley. LLE: Lasix 40 mg for Lasix daily. Well controlled with medication. CKD4: Following with Nephrology, Dr. Gilmore. Every 6 months. Refers that she just had labs, which ere stable. HTN: Taking Lisinopril/hctz 10/12.5 mg, Norvasc 5 mg and Toprol XL 50 mg daily. Hypothyroid: Taking levothyroxine 125 mcg daily. Cardiology: Following with Dr. Jackson. Has been working out 3 times weekly and watching diet. Sleep: Taking Ambien 10 mg at bedtime. Vaccines: Would like Flu and Covid vaccines. PAST MEDICAL HISTORY: PAST MEDICAL HISTORY Diagnosis [...] CONDYLEANDPLATU MEDIALANDLAT COMPARTMENTS 1990 bilateral total knee s([place]) ARTHRP KNE CONDYLEANDPLATU MEDIALANDLAT COMPARTMENTS 10/24/04 bilateral total knee revisions DELIVERY ONLY , low cervical CHOLECYSTECTOMY COLONOSCOPY FLX DX W/COLLJ SPEC WHEN PFRMD 11/17/2017 Colonoscopy DEBRIDEMENT SUBCUTANEOUS TISSUE 20 SQ CM/< 02/17/07 LEFT LEG DEBRIDEMENT SUBCUTANEOUS TISSUE 20 SQ CM/< [id number] LEFT LEG DEBRIDEMENT SUBCUTANEOUS TISSUE 20 SQ CM/< [id number] LEFT LEG DEBRIDEMENT SUBCUTANEOUS TISSUE 20 SQ CM/< [id number] LEFT LEG DEBRIDEMENT SUBCUTANEOUS TISSUE 20 SQ CM/< [id number] LEFT LEG DEBRIDEMENT SUBCUTANEOUS TISSUE 20 SQ CM/< 03/03/07 LEFT LEG ESOPHAGOGASTRODUODENOSCOPY TRANSORAL DIAGNOSTIC 11/17/2017 EGD GASTRIC BYPASS 07/08 HEMORRHOIDECTOMY INTERNAL RUBBER BAND LIGATIONS HYSTEROSCOPY BX W/WO SHEILA 01/07/2018 PAST SURGICAL HISTORY OF 04/10/2016 [place] and new knee cap put in right leg PAST SURGICAL HISTORY OF 04/25/2016 had to debri right leg wound with cellutitis infection ALLERGIES Bactrim [Sulfamethoxazole-Trimethop rim], Ibuprofen, Kefzol [Cefazolin Sodium], Peanut, and Sulfa (Sulfonamide Antibiotics) MEDICATIONS Current Outpatient Medications Medication Sig zolpidem (AMBIEN) 10 mg Take 1 tablet by mouth at bedtime as needed for up to 90 days. levothyroxine (LEVOXYL) 125 mcg tablet Take 1 tablet by mouth once daily. Take on empty stomach. For thyroid. gabapentin (NEURONTIN) 300 mg capsule Take 1 capsule by mouth three times a day for 180 days. Take one pill 3 times per day Do not start before September 28, 2023. cyclobenzaprine (FLEXERIL) 10 mg tablet Take 1 tablet by mouth three times a day as needed for muscle spasm. polyethylene glycol 3350 (MIRALAX) 17 gram/dose powder Take by mouth once daily. Dissolve dose in 4 - 8 ounces of liquid and take as directed. polyethylene glycol 3350 (MIRALAX) 17 gram/dose powder Take once daily lisinopril-hydroCHLOROthiaz amaya (ZESTORETIC) 10-12.5 mg per tablet Take 1 tablet by mouth once daily. furosemide (LASIX) 40 mg tablet take 1 tablet by mouth every day omeprazole (PRILOSEC) 20 mg capsule Take 1 capsule by mouth once daily. GEMTESA 75 mg tablet Take 1 tablet by mouth every afternoon. aspirin, enteric coated (ASPIRIN, ENTERIC COATED) 81 mg EC tablet Take 81 mg by mouth once daily. amLODIPi (more content not included)... Normal [facility] T4 Free SerPl-mCncon 024 Free T4 [Mass/Vol] 1.5 ng/dL Normal 0.9-1.7 [facility] Comment on above: Order Comment: Speci men Type: BLOOD SPECIMEN Ordering Facility: [facility] Address: [address] [place], [place] [address] Performed By: #### 2 4331-1, 3016-3, 47123-5, 3024-7 #### [facility] CLIA [id number] [address] [place] [address] [place] TSH SerPl-aCncon 01-26-2024 TSH Qn 3.870 m[IU]/L Normal 0.270-4.20 0 [facility] Comment on above: Order Comment: Speci men Type: BLOOD SPECIMEN Ordering Facility: [facility] Address: [address] [place] [address] Performed By: #### 2 4331-1, 3016-3, 35199-2, 3024-7 #### [facility] CLIA [id number] [address] [place] [address] [place] CNPLuz Maria 12-29-2023 CNPN Telephone ([facility]) MARI LOPEZ ([id number]) 1940 F Date Time Provider Department 12/29/23 STEPHANIE JACKSON During your visit today, we recorded the following information about you: Weston Humphrey 12/29/2023 8:56 AM Signed Patient is being referred to Dr. Jackson by Dr. Lokesh Mc for left knee pain. Please reach out to patient and assist with scheduling a consultation. 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 Michael Arguelles 12/29/2023 10:40 AM Signed Lvm for patient to call back and schedule an appointment with Dr. Jackson for knee pain. Michael Diop 12/31/2023 8:15 AM Signed Lvm for patient to call back and schedule an appointment with Dr. Jackson. Bhupendra Diopelle 01/04/2024 8:39 AM Signed Lvm for patient to call back and schedule an appointment with Dr. Jackson. Allergies As of Date: 12/29/2023 Noted Allergy Reaction BACTRIM (SULFAMETHOXAZOLE-TRIMETH*0 07/23/2016 4 - Hives Comments: Blisters: head to toe IBUPROFEN 11/08/2015 2 - Rash KEFZOL (CEFAZOLIN SODIUM) 08/09/2018 4 - Hives PEANUT 03/31/2023 10 - Anaphylaxis SULFA (SULFONAMIDE ANTIBIOTICS) 07/23/2016 4 - Hives 16 - Unknown Comments: Blisters: head to toe Date Reviewed: 12/17/2023 Reviewed by: Amada Velasco LPN - Fully Assessed Reason for Visit: Appointment [186] Prescriptions as of 02/08/2024 - furosemide (LASIX) 40 mg tablet Take 1 tablet by mouth once daily. - zolpidem (AMBIEN) 10 mg Take 1 tablet by mouth at bedtime as needed for up to 90 days. - levothyroxine (LEVOXYL) 125 mcg tablet Take 1 tablet by mouth once daily. Take on empty stomach. For thyroid. - gabapentin (NEURONTIN) 300 mg capsule Take 1 capsule by mouth three times a day for 180 days. Take one pill 3 times per day Do not start before September 28, 2023. - cyclobenzaprine (FLEXERIL) 10 mg tablet Take 1 tablet by mouth three times a day as needed for muscle spasm. - polyethylene glycol 3350 (MIRALAX) 17 gram/dose powder Take by mouth once daily. Dissolve dose in 4 - 8 ounces of liquid and take as directed. - polyethylene glycol 3350 (MIRALAX) 17 gram/dose powder Take once daily - lisinopril-hydroCHLOROthiaz amaya (ZESTORETIC) 10-12.5 mg per tablet Take 1 tablet by mouth once daily. - omeprazole (PRILOSEC) 20 mg capsule Take 1 capsule by mouth once daily. - GEMTESA 75 mg tablet Take 1 tablet by mouth every afternoon. - aspirin, enteric coated (ASPIRIN, ENTERIC COATED) 81 mg EC tablet Take 81 mg by mouth once daily. - tolterodine ER (DETROL LA) 4 mg 24 hr capsule TAKE 1 CAPSULE BY MOUTH ONCE DAILY - acetaminophen (TYLENOL) 500 mg tablet Take 1,000 mg by mouth twice daily. - Diaper,Brief, Adult,Disposable (DEPEND UNDERWEAR FOR WOMEN XL) Use 5/day as needed for urinary incontinence - metoprolol succinate ER (TOPROL XL) 50 mg 24 hr tablet Take by mouth. - Catjkifwadk-Ezpomiovv-Bjg C-Mn (GLUCOSAMINE CHONDROITIN MAXSTR) 500-400 mg cap Take 1 capsule by mouth three times daily. - COMPOUNDED PRESCRIPTION Stair lift - DAILY-LUISITO tablet TAKE 1 TABLET BY MOUTH ONCE DAILY. - fvssjcs-cskwgopuq-hsgdddk D3 (CALCIUM 500+D) 500 mg(1,250mg) -200 unit per tablet Take 1 tablet by mouth twice daily with meals. - vitamin b complex (B COMPLETE) tab Take 1 tablet by mouth once daily. - hydrocortisone (ANUSOL-HC) 2.5 % rectal cream 1 application by RECTAL route twice daily. - calcium acetate (PHOSLO) 667 mg capsule TAKE 1 CAPSULE BY MOUTH THREE TIMES DAILY. - Magnesium 200 mg tab Take 200 mg by mouth once daily. - Zinc 50 mg tab Take 1 tablet by mouth once daily. - cholecalciferol (VITAMIN D3) 1,000 unit tab tablet Take 2 tablets by mouth once daily. - senna-docusate (SENNA-S) 8.6-50 mg per tablet Take 1 tablet by mouth once daily. - ascorbic acid(VITAMIN C 500 MG TAB) Take one(1) tablet daily. - VITAMIN E 400 UNIT CAP Take one(1) tablet twice daily. - pyridoxine hcl(VITAMIN B-6 100 MG TAB) Take one(1) tablet daily. - CENTRUM PERFORMANCE TAB Take one(1) tablet daily. Meds Comments as of 10/27/2016: Magnesium, zinc, Glucosamine-chondroitin, Fish-Oil Problem List As Of Date 12/29/2023 Noted Resolved Class 3 severe obesity with body mass index (BM*06/28/2003 BENIGN HYPERTENSION(aka HTN) [I10] 07/21/2003 ASTHMA UNSPECIFIED [J45.909] 07/21/2003 OTHER UNSPEC SLEEP APNEA(aka APNEA) [G47.30] 07/21/2003 Primary osteoarthritis of both knees [M17.0] 07/21/2003 THROMBOPHLEBITIS NOS(aka DVT) [I80.9] 07/21/2003 08/21/2009 PULMON EMBOLISM/INFARCT(aka EMBOLISM) [415.1] 07/21/2003 08/21/2009 VENTRAL HERNIA NEC [K43.9] 03/26/2004 07/01/2007 ASA CLASS III [1003] 05/07/2005 07/12/2021 INJURY TRUNK SITE NEC [HYU9937] 01/16/2006 07/01/2007 Anemia in chronic kidney disease (CKD) [N18.9, *03/17/2006 Non-Healing Surgical Wound [T81.89XA] 03/16/2007 05/18/2009 FEMALE STRESS INCONTINENC (more content not included)... Normal [facility] Inital Evaluation (1) - PTon 12-24-2023 Inital Evaluation (1) - PT Normal [facility] CNOVon 12-17-2023 CNOV Office Visit (SPAGWO ) MARI LOPEZ ([id number]) 1940 F Date Time Provider Department 12/17/23 8:45 AM ROQUE DELGADO During your visit today, we recorded the following information about you: Pulse Respiration Normal [facility] 12-16-2023 CNPN Telephone (FAMManuelaWS) MARI LOPEZ ([id number]) 1940 F Date Time Provider Department 12/16/23 [facility] During your visit today, we recorded the following information about you: Miryam Orozco APRN.CNP 12/16/2023 7:29 PM Signed Can you please call the patient and let her know that I reviewed her lab results. TSH was mildly elevated. If she is not having any symptoms we can continue with current Synthroid dosing and recheck labs in 6 to 8 weeks. Triglycerides were elevated. Mild decreased kidney function noted. I would recommend that she continue to watch processed foods in the diet, increase lean protein, vegetables, get some form exercise. Keep scheduled appointments with health and fitness instructor. Please let me know what she prefers regarding her thyroid. Thank you Miryam Orozco APRN.Minna Morgan LPN 12/17/2023 8:46 AM Signed TC to pt. LM to call office, ask for triage nurse to get results. RUDDY Gong Helen E, LPN 12/17/2023 3:03 PM Signed Patient returned call, given below results/recommendations, verbalized understanding. Patient wanting to stay on same dose of Synthroid and recheck labs in 6-8 weeks. Miryam Singh LPN, APRN.CNP 12/17/2023 3:31 PM Signed Lab orders have been placed. Miryam Orozco APRN.Analia Hayes RN 12/17/2023 3:43 PM Signed Pt called and is notified of providers message. Pt voices understanding. Analia Gracia RN Allergies As of Date: 12/16/2023 Noted Allergy Reaction BACTRIM (SULFAMETHOXAZOLE-TRIMETH*0 07/23/2016 4 - Hives Comments: Blisters: head to toe IBUPROFEN 11/08/2015 2 - Rash KEFZOL (CEFAZOLIN SODIUM) 08/09/2018 4 - Hives PEANUT 03/31/2023 10 - Anaphylaxis SULFA (SULFONAMIDE ANTIBIOTICS) 07/23/2016 4 - Hives 16 - Unknown Comments: Blisters: head to toe Date Reviewed: 12/15/2023 Reviewed by: Merle Rhodes LPN - Fully Assessed Reason for Visit: Results [95] Cmt: Labs Primary Visit Diagnosis:Hypothyroidism, acquired [E03.9] Order(s):THYROID STIMULATING HORMONE [SQTSH] Order #: [id number] FUTURE T4 FREE/FREE THYROXINE [SQFT4] Order #: [id number] FUTURE Prescriptions as of 12/17/2023 - zolpidem (AMBIEN) 10 mg Take 1 tablet by mouth at bedtime as needed for up to 90 days. - levothyroxine (LEVOXYL) 125 mcg tablet Take 1 tablet by mouth once daily. Take on empty stomach. For thyroid. - gabapentin (NEURONTIN) 300 mg capsule Take 1 capsule by mouth three times a day for 180 days. Take one pill 3 times per day Do not start before September 28, 2023. - cyclobenzaprine (FLEXERIL) 10 mg tablet Take 1 tablet by mouth three times a day as needed for muscle spasm. - polyethylene glycol 3350 (MIRALAX) 17 gram/dose powder Take by mouth once daily. Dissolve dose in 4 - 8 ounces of liquid and take as directed. - polyethylene glycol 3350 (MIRALAX) 17 gram/dose powder Take once daily - lisinopril-hydroCHLOROthiaz amaya (ZESTORETIC) 10-12.5 mg per tablet Take 1 tablet by mouth once daily. - furosemide (LASIX) 40 mg tablet take 1 tablet by mouth every day - omeprazole (PRILOSEC) 20 mg capsule Take 1 capsule by mouth once daily. - GEMTESA 75 mg tablet Take 1 tablet by mouth every afternoon. - aspirin, enteric coated (ASPIRIN, ENTERIC COATED) 81 mg EC tablet Take 81 mg by mouth once daily. - amLODIPine (NORVASC) 5 mg tablet Take by mouth. - tolterodine ER (DETROL LA) 4 mg 24 hr capsule TAKE 1 CAPSULE BY MOUTH ONCE DAILY - acetaminophen (TYLENOL) 500 mg tablet Take 1,000 mg by mouth twice daily. - Diaper,Brief, Adult,Disposable (DEPEND UNDERWEAR FOR WOMEN XL) Use 5/day as needed for urinary incontinence - metoprolol succinate ER (TOPROL XL) 50 mg 24 hr tablet Take by mouth. - Fnucbugpbww-Qzxhxcluh-Faf C-Mn (GLUCOSAMINE CHONDROITIN MAXSTR) 500-400 mg cap Take 1 capsule by mouth three times daily. - COMPOUNDED PRESCRIPTION Stair lift - DAILY-LUISITO tablet TAKE 1 TABLET BY MOUTH ONCE DAILY. - oslwunj-dyzpibged-wdnaqsu D3 (CALCIUM 500+D) 500 mg(1,250mg) -200 unit per tablet Take 1 tablet by mouth twice daily with meals. - vitamin b complex (B COMPLETE) tab Take 1 tablet by mouth once daily. - hydrocortisone (ANUSOL-HC) 2.5 % rectal cream 1 application by RECTAL route twice daily. - calcium acetate (PHOSLO) 667 mg capsule TAKE 1 CAPSULE BY MOUTH THREE TIMES DAILY. - Magnesium 200 mg tab Take 200 mg by mouth once daily. - Zinc 50 mg tab Take 1 tablet by mouth once daily. - cholecalciferol (VITAMIN D3) 1,000 unit tab tablet Take 2 tablets by mouth once daily. - senna-docusate (SENNA-S) 8.6-50 mg per tablet Take 1 tablet by mouth once daily. - ascorbic acid(VITAMIN C 500 MG TAB) Take one(1) tablet daily. - VITAMIN E 400 UNIT CAP Take one(1) tablet twice daily. - pyridoxine hcl(VITAMIN B-6 100 MG TAB) Take one(1) tablet daily. - CENTRUM PERFORMANCE TAB Take (more content not included)... [facility] MAR[facility] ([id number]) 1940 F Date Time Provider Department 12/14/23 [facility] [place] AGSPINE3 During your visit today, we recorded the following information about you: Sofía Crowe 12/14/2023 1:03 PM Signed ----- Message from Linda Raymundo sent at 12/14/2023 12:40 PM EDT ----- Regarding: [facility] Provider Phone Call [facility] Provider Phone Call Patient: Mari Lopez Date of : 1940 Primary Care Provider: Lizy Capone MD Patient has been identified by name and Date of (Y/N): y Patient: Mari Lopez Date of : 1940 Provider for this encounter: Lizy Capone MD Reason for the call/escalation: Patient stated that she tried to message the office saying that her dyslexia causes her to have issues in technology so she would like to know if she can do a provider phone call like she did in the past. She would like a call back to elaborate or confirm Was Patient Referred to [facility]/Seek Emergency Treatment (Y/N): n Did Patient Agree (Y/N): n/a Was An Attempt Made To Transfer The Patient To The Office (Y/N): n Were You Able To Reach Someone At The Office (Y/N): n/a If Yes - Patient Was Transferred To (Caregivers Name): n/a If No - Which [facility] Leadership Portal Administrator Did You Speak With Regarding This Patient: n/a Was an appointment scheduled (Y/N): n Reason patient was requesting visit (RFV/signs and symptoms/diagnosis) : n/a Person calling if other than patient: self Return call to if other than patient: self Best contact number: [phone] Thank you, Linda Singh December 14, 2023 12:40 PM Sofía Crowe 12/14/2023 1:04 PM Signed This patient does not have mychart- but was scheduled for a VV Please reschedule her to in person as we do not schedule phone call visits any longer Gonzalo Holland 12/14/2023 1:32 PM Signed Patient has been rescheduled with Dr. Delgado in [place] on 12/16 at 8:45am. Gonzalo Holland Allergies As of Date: 12/14/2023 Noted Allergy Reaction BACTRIM (SULFAMETHOXAZOLE-TRIMETH*0 07/23/2016 4 - Hives Comments: Blisters: head to toe IBUPROFEN 11/08/2015 2 - Rash KEFZOL (CEFAZOLIN SODIUM) 08/09/2018 4 - Hives PEANUT 03/31/2023 10 - Anaphylaxis SULFA (SULFONAMIDE ANTIBIOTICS) 07/23/2016 4 - Hives 16 - Unknown Comments: Blisters: head to toe Date Reviewed: 12/04/2023 Reviewed by: Radha Dumont MA - Fully Assessed Reason for Visit: Returning Patient's Call [408] Prescriptions as of 12/14/2023 - zolpidem (AMBIEN) 10 mg Take 1 tablet by mouth at bedtime as needed for up to 90 days. - levothyroxine (LEVOXYL) 125 mcg tablet Take 1 tablet by mouth once daily. Take on empty stomach. For thyroid. - gabapentin (NEURONTIN) 300 mg capsule Take 1 capsule by mouth three times a day for 180 days. Take one pill 3 times per day Do not start before September 28, 2023. - cyclobenzaprine (FLEXERIL) 10 mg tablet Take 1 tablet by mouth three times a day as needed for muscle spasm. - polyethylene glycol 3350 (MIRALAX) 17 gram/dose powder Take by mouth once daily. Dissolve dose in 4 - 8 ounces of liquid and take as directed. - polyethylene glycol 3350 (MIRALAX) 17 gram/dose powder Take once daily - lisinopril-hydroCHLOROthiaz amaya (ZESTORETIC) 10-12.5 mg per tablet Take 1 tablet by mouth once daily. - furosemide (LASIX) 40 mg tablet take 1 tablet by mouth every day - omeprazole (PRILOSEC) 20 mg capsule Take 1 capsule by mouth once daily. - GEMTESA 75 mg tablet Take 1 tablet by mouth every afternoon. - aspirin, enteric coated (ASPIRIN, ENTERIC COATED) 81 mg EC tablet Take 81 mg by mouth once daily. - amLODIPine (NORVASC) 5 mg tablet Take by mouth. - tolterodine ER (DETROL LA) 4 mg 24 hr capsule TAKE 1 CAPSULE BY MOUTH ONCE DAILY - acetaminophen (TYLENOL) 500 mg tablet Take 1,000 mg by mouth twice daily. - Diaper,Brief, Adult,Disposable (DEPEND UNDERWEAR FOR WOMEN XL) Use 5/day as needed for urinary incontinence - metoprolol succinate ER (TOPROL XL) 50 mg 24 hr tablet Take by mouth. - Fwcauzixnfv-Zixjuxlia-Tcx C-Mn (GLUCOSAMINE CHONDROITIN MAXSTR) 500-400 mg cap Take 1 capsule by mouth three times daily. - COMPOUNDED PRESCRIPTION Stair lift - DAILY-LUISITO tablet TAKE 1 TABLET BY MOUTH ONCE DAILY. - lbudyyr-kesgnxqzj-nkksuuu D3 (CALCIUM 500+D) 500 mg(1,250mg) -200 unit per tablet Take 1 tablet by mouth twice daily with meals. - vitamin b complex (B COMPLETE) tab Take 1 tablet by mouth once daily. - hydrocortisone (ANUSOL-HC) 2.5 % rectal cream 1 application by RECTAL route twice daily. - calcium acetate (PHOSLO) 667 mg capsule TAKE 1 CAPSULE BY MOUTH THREE TIMES DAILY. - Magnesium 200 mg tab Take 200 mg by mouth once daily. - Zinc 50 mg tab Take 1 tablet by mouth once daily. (more content not included)... Normal [facility]OPEZ ([id number]) 1940 F Date Time Provider Department 12/14/23 [facility] During your visit today, we recorded the following information about you: Minna Blue LPN 12/14/2023 10:41 AM Signed Pt came to window requesting a order for Physical Therapy due to frequent falls. She would like it faxed to [facility]. RUDDY Gong Ashley, APRN.CJ 12/14/2023 11:32 AM Signed Order for physical therapy has been placed. Will be faxed to [facility]. Miryam Orozco APRN.CJ Allergies As of Date: 12/14/2023 Noted Allergy Reaction BACTRIM (SULFAMETHOXAZOLE-TRIMETH*0 07/23/2016 4 - Hives Comments: Blisters: head to toe IBUPROFEN 11/08/2015 2 - Rash KEFZOL (CEFAZOLIN SODIUM) 08/09/2018 4 - Hives PEANUT 03/31/2023 10 - Anaphylaxis SULFA (SULFONAMIDE ANTIBIOTICS) 07/23/2016 4 - Hives 16 - Unknown Comments: Blisters: head to toe Date Reviewed: 12/04/2023 Reviewed by: Radha Dumont MA - Fully Assessed Primary Visit Diagnosis:Falls [R29.6] Other Visit Diagnosis:Balance problem [R26.89] Order(s):CONSULT TO PHYSICAL THERAPY [9032] Order #: [id number]: 1 FUTURE Prescriptions as of 12/14/2023 - zolpidem (AMBIEN) 10 mg Take 1 tablet by mouth at bedtime as needed for up to 90 days. - levothyroxine (LEVOXYL) 125 mcg tablet Take 1 tablet by mouth once daily. Take on empty stomach. For thyroid. - gabapentin (NEURONTIN) 300 mg capsule Take 1 capsule by mouth three times a day for 180 days. Take one pill 3 times per day Do not start before September 28, 2023. - cyclobenzaprine (FLEXERIL) 10 mg tablet Take 1 tablet by mouth three times a day as needed for muscle spasm. - polyethylene glycol 3350 (MIRALAX) 17 gram/dose powder Take by mouth once daily. Dissolve dose in 4 - 8 ounces of liquid and take as directed. - polyethylene glycol 3350 (MIRALAX) 17 gram/dose powder Take once daily - lisinopril-hydroCHLOROthiaz amaya (ZESTORETIC) 10-12.5 mg per tablet Take 1 tablet by mouth once daily. - furosemide (LASIX) 40 mg tablet take 1 tablet by mouth every day - omeprazole (PRILOSEC) 20 mg capsule Take 1 capsule by mouth once daily. - GEMTESA 75 mg tablet Take 1 tablet by mouth every afternoon. - aspirin, enteric coated (ASPIRIN, ENTERIC COATED) 81 mg EC tablet Take 81 mg by mouth once daily. - amLODIPine (NORVASC) 5 mg tablet Take by mouth. - tolterodine ER (DETROL LA) 4 mg 24 hr capsule TAKE 1 CAPSULE BY MOUTH ONCE DAILY - acetaminophen (TYLENOL) 500 mg tablet Take 1,000 mg by mouth twice daily. - Diaper,Brief, Adult,Disposable (DEPEND UNDERWEAR FOR WOMEN XL) Use 5/day as needed for urinary incontinence - metoprolol succinate ER (TOPROL XL) 50 mg 24 hr tablet Take by mouth. - Wdlqnrnzgax-Eeyfrbnnt-Rnf C-Mn (GLUCOSAMINE CHONDROITIN MAXSTR) 500-400 mg cap Take 1 capsule by mouth three times daily. - COMPOUNDED PRESCRIPTION Stair lift - DAILY-LUISITO tablet TAKE 1 TABLET BY MOUTH ONCE DAILY. - ooetzfc-mclvqdfvp-zkxbgdw D3 (CALCIUM 500+D) 500 mg(1,250mg) -200 unit per tablet Take 1 tablet by mouth twice daily with meals. - vitamin b complex (B COMPLETE) tab Take 1 tablet by mouth once daily. - hydrocortisone (ANUSOL-HC) 2.5 % rectal cream 1 application by RECTAL route twice daily. - calcium acetate (PHOSLO) 667 mg capsule TAKE 1 CAPSULE BY MOUTH THREE TIMES DAILY. - Magnesium 200 mg tab Take 200 mg by mouth once daily. - Zinc 50 mg tab Take 1 tablet by mouth once daily. - cholecalciferol (VITAMIN D3) 1,000 unit tab tablet Take 2 tablets by mouth once daily. - senna-docusate (SENNA-S) 8.6-50 mg per tablet Take 1 tablet by mouth once daily. - ascorbic acid(VITAMIN C 500 MG TAB) Take one(1) tablet daily. - VITAMIN E 400 UNIT CAP Take one(1) tablet twice daily. - pyridoxine hcl(VITAMIN B-6 100 MG TAB) Take one(1) tablet daily. - CENTRUM PERFORMANCE TAB Take one(1) tablet daily. Meds Comments as of 10/27/2016: Magnesium, zinc, Glucosamine-chondroitin, Fish-Oil Problem List As Of Date 12/14/2023 Noted Resolved Class 3 severe obesity with body mass index (BM*06/28/2003 BENIGN HYPERTENSION(aka HTN) [I10] 07/21/2003 ASTHMA UNSPECIFIED [J45.909] 07/21/2003 OTHER UNSPEC SLEEP APNEA(aka APNEA) [G47.30] 07/21/2003 Primary osteoarthritis of both knees [M17.0] 07/21/2003 THROMBOPHLEBITIS NOS(aka DVT) [I80.9] 07/21/2003 08/21/2009 PULMON EMBOLISM/INFARCT(aka EMBOLISM) [415.1] 07/21/2003 08/21/2009 VENTRAL HERNIA NEC [K43.9] 03/26/2004 07/01/2007 ASA CLASS III [1003] 05/07/2005 07/12/2021 INJURY TRUNK SITE NEC [ELT0081] 01/16/2006 07/01/2007 Anemia in chronic kidney disease (CKD) [N18.9, *03/17/2006 Non-Healing Surgical Wound [T81.89XA] 03/16/2007 05/18/2009 FEMALE STRESS INCONTINENCE [N39.3] 07/12/2008 MASS IN SUBCUTANEOUS TISSUE [R22.9] 07/21/2008 08/18/2018 Pain in Joint, Lower Leg [M25.569] 11/14/200808/21 (more content not included)... Normal [facility] Comprehensive metabolic 2000 panelon 12-14-2023 Albumin [Mass/Vol] 3.9 g/dL Normal 3.9-4.9 [facility] Comment on above: Order Comment: Speci men Type: BLOOD SPECIMEN Ordering Facility: [facility] Address: [address] [place] [address] Performed By: #### 2 4331-1, 3016-3, 38680-4, 3024-7 #### [facility] CLIA [id number] [address] [place] [address] [place] ALP [Catalytic activity/Vol] 77 U/L Normal 34-123 [facility] Comment on above: Order Comment: Speci men Type: BLOOD SPECIMEN Ordering Facility: [facility] Address: [address] [place], [place] [address] Performed By: #### 2 4331-1, 6-3, 33011-7, 3023-7 #### [facility] CLIA [id number] [address] [place] [address] [place] ALT [Catalytic activity/Vol] 15 U/L Normal 7-38 [facility] Comment on above: Order Comment: Speci men Type: BLOOD SPECIMEN Ordering Facility: [facility] Address: [address] [place] [address] Performed By: #### 2 4331-1, 3016-3, 71667-8, 3024-7 #### [facility] CLIA [id number] [address] [place] [address] [place] Anion gap [Moles/Vol] 14 mmol/L Normal 8-15 [facility] Comment on above: Order Comment: Speci men Type: BLOOD SPECIMEN Ordering Facility: [facility] Address: [address] [place] [address] Performed By: #### 2 4331-1, 3016-3, 66718-9, 3024-7 #### [facility] CLIA [id number] [address] [place], [place] [address] [place] AST [Catalytic activity/Vol] 22 U/L Normal 13-35 [facility] Comment on above: Order Comment: Speci men Type: BLOOD SPECIMEN Ordering Facility: [facility] Address: [address] [place] [address] Performed By: #### 2 4331-1, 3015-3, 81299-1, 7 #### [facility] CLIA [id number] [address] [place], [place] [address] [place] Bilirubin [Mass/Vol] 0.4 mg/dL Normal 0.2-1.3 [facility] Comment on above: Order Comment: Speci men Type: BLOOD SPECIMEN Ordering Facility: [facility] Address: [address] [place] [address] Performed By: #### 2 4331-1, 3015-3, 53842-3, 7 #### [facility] CLIA [id number] [address] [place] [address] [place] Calcium [Mass/Vol] 9.1 mg/dL Normal 8.5-10.2 [facility] Comment on above: Order Comment: Speci men Type: BLOOD SPECIMEN Ordering Facility: [facility] Address: [address] [place], [place] [address] Performed By: #### 2 4331-1, 3015-3, 21798-2, 7 #### [facility] CLIA [id number] [address] [place], [place] [address] [place] Chloride [Moles/Vol] 109 mmol/L High 98-107 [facility] Comment on above: Order Comment: Speci men Type: BLOOD SPECIMEN Ordering Facility: [facility] Address: [address] [place], [place] [address] Performed By: #### 2 4331-1, 3016-3, 70043-2, 7 #### [facility] CLIA [id number] [address] [place] [address] [place] CO2 [Moles/Vol] 17 mmol/L Low 22-30 [facility] Comment on above: Order Comment: Speci men Type: BLOOD SPECIMEN Ordering Facility: [facility] Address: [address] [place] [address] Performed By: #### 2 4331-1, 6-3, 62259-2, 3023-10 #### [facility] CLIA [id number] [address] [place] [address] [place] Creatinine [Mass/Vol] 1.72 mg/dL High 0.58-0.96 [facility] Comment on above: Order Comment: Speci men Type: BLOOD SPECIMEN Ordering Facility: [facility] Address: [address] [place] [address] Performed By: #### 2 4331-1, 3015-3, , 3023-10 #### [facility] CLIA [id number] [address] [place] [address] [place] Creatinine and Glomerular filtration rate.predicted panel (S/P/Bld) 30 mL/min/1.73m??? Low >=60 [facility] Comment on above: Order Comment: Speci men Type: BLOOD SPECIMEN Ordering Facility: [facility] Address: [address] [place] [address] Result Comment: Kayy mated Glomerular Filtration Rate (eGFR) is calculated using the 2020 CKD-EPI creatinine equation. This equation utilizes serum creatinine, sex, and age as parameters. The creatinine assay has traceable calibration to isotope dilution-mass spectrometry. Refer to KDIGO guidelines for clinical interpretation. In patients with unstable renal function, e.g. those with acute kidney injury, the eGFR may not accurately reflect actual GFR. Performed By: #### 2 4331-1, 6-3, 72758-5, 7 #### [facility] CLIA [id number] [address] [place] [address] [place] Glucose [Mass/Vol] 99 mg/dL Normal 74-99 [facility] Comment on above: Order Comment: Speci men Type: BLOOD SPECIMEN Ordering Facility: [facility] Address: [address] [place] [address] Result Comment: The [place] [employer] (ADA) provides guidance for cutoff values for fasting glucose and random glucose. The ADA defines fasting as no caloric intake for at least 8 hours. Fasting plasma glucose results between 100 to 125 mg/dL indicate increased risk for diabetes (prediabetes). Fasting plasma glucose results greater than or equal to 126 mg/dL meet the criteria for diagnosis of diabetes. In the absence of unequivocal hyperglycemia, results should be confirmed by repeat testing. In a patient with classic symptoms of hyperglycemia or hyperglycemic crisis, random plasma glucose results greater than or equal to 200 mg/dL meet the criteria for diagnosis of diabetes. Reference: Standards of Medical Care in Diabetes 2016, [place] [employer]. Diabetes Care. 2016.39(Suppl 1). Performed By: #### 2 4331-1, 3016-3, 08622-8, 3024-7 #### [facility] CLIA [id number] [address] [place] [address] [place] Potassium [Moles/Vol] 5.3 mmol/L High 3.7-5.1 [facility] Comment on above: Order Comment: Jesui men Type: BLOOD SPECIMEN Ordering Facility: [facility] Address: [address] [place] [address] Performed By: #### 2 4331-1, 3016-3, 78385-1, 3024-7 #### [facility] CLIA [id number] [address] [place] [address] [place] Protein [Mass/Vol] 6.6 g/dL Normal 6.3-8.0 [facility] Comment on above: Order Comment: Jesui men Type: BLOOD SPECIMEN Ordering Facility: [facility] Address: [address] [place] [address] Performed By: #### 2 4331-1, 3016-3, 86108-1, 7 #### [facility] CLIA [id number] [address] [place] [address] [place] Sodium [Moles/Vol] 140 mmol/L Normal 136-144 [facility] Comment on above: Order Comment: Speci men Type: BLOOD SPECIMEN Ordering Facility: [facility] Address: [address] [place] [address] Performed By: #### 2 4331-1, 3016-3, 51886-8, 7 #### [facility] CLIA [id number] [address] [place] [address] [place] Urea nitrogen [Mass/Vol] 68 mg/dL High 7-21 [facility] Comment on above: Order Comment: Speci men Type: BLOOD SPECIMEN Ordering Facility: [facility] Address: [address] [place] [address] Performed By: #### 2 4331-1, 3015-3, 39427-1, 7 #### [facility] CLIA [id number] [address] [place], [place] [address] [place] Lipid 1996 panelon 4 Cholesterol [Mass/Vol] 179 mg/dL Normal <200 [facility] Comment on above: Order Comment: Speci men Type: BLOOD SPECIMEN Ordering Facility: [facility] Address: [address] [place] [address] Result Comment: <200 mg/dL, Desirable 200-239 mg/dL, Borderline high >239 mg/dL, High Performed By: #### 2 4331-1, 3016-3, 70718-9, 7 #### [facility] CLIA [id number] [address] [place], [place] [address] [place] Cholesterol in HDL [Mass/Vol] 55 mg/dL Normal >39 [facility] Comment on above: Order Comment: Speci men Type: BLOOD SPECIMEN Ordering Facility: [facility] Address: [address] [place] [address] Result Comment: 40-5 9 mg/dL, Acceptable >59 mg/dL, High: Negative risk factor for coronary heart disease <40 mg/dL, Low: Positive risk factor for coronary heart disease Performed By: #### 2 4331-1, 3016-3, 50281-4, 3023-7 #### [facility] CLIA [id number] [address] [place], [place] [address] [address] [place] Cholesterol in LDL [Mass/Vol] 90 mg/dL Normal <100 [facility] Comment on above: Order Comment: Speci men Type: BLOOD SPECIMEN Ordering Facility: [facility] Address: [address] [place] [address] Result Comment: <100 mg/dL, Optimal 100-129 mg/dL, Near optimal/above optimal 130-159 mg/dL, Borderline high 160-189 mg/dL, High >189 mg/dL, Very high Secondary prevention optimal LDL Cholesterol levels are recommended to be < 70 mg/dL Performed By: #### 2 4331-1, 3016-3, 44121-4, 7 #### [facility] CLIA [id number] [address] [place] [address] [place] Cholesterol in LDL/Cholesterol in HDL [Mass ratio] 1.64 {ratio} Normal <2.54 [facility] Comment on above: Order Comment: Speci men Type: BLOOD SPECIMEN Ordering Facility: [facility] Address: [address] [place] [address] Result Comment: Refchela torresce: 1. National Cholesterol Education Program ATP III Guideline At-A-Glance Quick Desk Reference: National Heart, Lung, and Blood [place]. National Institutes of Health. 2001: NIH Publication No. 01-3305. 2. An International Atherosclerosis Society position paper: global recommendations for the management of dyslipidemia: executive summary, Atherosclerosis. 2014: 232(2):410-413. Performed By: #### 2 4331-1, 3016-3, 71360-4, 3023-7 #### [facility] CLIA [id number] [address] [place] [address] [place] Cholesterol in VLDL [Mass/Vol] 34 mg/dL High <30 [facility] Comment on above: Order Comment: Speci men Type: BLOOD SPECIMEN Ordering Facility: [facility] Address: [address] [place], [place] [address] Performed By: #### 2 4331-1, 3016-3, 14025-5, 3024-7 #### [facility] CLIA [id number] [address] [place] [address] [place] Cholesterol non HDL [Mass/Vol] 124 mg/dL Normal <130 [facility] Comment on above: Order Comment: Speci men Type: BLOOD SPECIMEN Ordering Facility: [facility] Address: [address] [place] [address] Result Comment: <130 mg/dL, Optimal 130-159 mg/dL, Near optimal/above optimal 160-189 mg/dL, Borderline high 190-219 mg/dL, High >219 mg/dL, Very high Secondary prevention optimal non HDL Cholesterol levels are recommended to be <100 mg/dL Performed By: #### 2 4331-1, 3016-3, 56566-1, 3024-7 #### [facility] CLIA [id number] [address] [place] [address] [place] Cholesterol.total/Chol esterol in HDL [Mass ratio] 3.25 {ratio} Normal <5.10 [facility] Comment on above: Order Comment: Speci men Type: BLOOD SPECIMEN Ordering Facility: [facility] Address: [address] [place] [address] Performed By: #### 2 4331-1, 3016-3, 62025-1, 3024-7 #### [facility] CLIA [id number] [address] [place] [address] [place] FASTING TIME 12 hrs Normal [facility] Comment on above: Order Comment: Speci men Type: BLOOD SPECIMEN Ordering Facility: [facility] Address: [address] [place] [address] Performed By: #### 2 4331-1, 3016-3, 00716-0, 3024-7 #### [facility] CLIA [id number] [address] [place] [address] [place] Triglyceride [Mass/Vol] 168 mg/dL High <150 [facility] Comment on above: Order Comment: Speci men Type: BLOOD SPECIMEN Ordering Facility: [facility] Address: [address] [place] [address] Result Comment: <150 mg/dL, Normal 150-199 mg/dL, Borderline high 200-499 mg/dL, High >499 mg/dL, Very high Performed By: #### 2 4331-1, 3016-3, 97737-8, 302-7 #### [facility] CLIA [id number] [address] [place] [address] [place] TSH SerPl-aCncon 12-14-2023 TSH Qn 4.550 m[IU]/L High 0.270-4.20 0 [facility] Comment on above: Order Comment: Speci men Type: BLOOD SPECIMEN Ordering Facility: [facility] Address: [address] [place] [address] Performed By: #### 2 4331-1, 3016-3, 72417-8, 3024-7 #### [facility] CLIA [id number] [address] [place] [address] [place] CNOVon 12-04-2023 CNOV Office Visit (OBGYWM ) MARI LOPEZ ([id number]) 1940 F Date Time Provider Department 12/04/23 9:00 AM TSARR SOLANO OBGYWM During your visit today, we recorded the following information about you: Blood pressure Weight 108/60 101.2 kg Starr Solano MD 12/04/2023 9:14 AM Signed Mari Lopez is a 83 year old female who presents for question regarding Mirena IUD in place for her endometrial hyperplasia. Patient reports she was taken to the hospital for low blood pressure recently and was told by a physician that she should have her IUD removed as she does not need it in place and was not sure why a woman in her 80s had an IUD. Patient states she has not had any problems with her Mirena IUD she has no bleeding she has no pain. Patient is happy to keep the IUD in place as she has not had any concerns. She is monitoring her blood pressures at home they have been fine. She denies any changes with her medications. OB History T1 L1 SAB0 IAB0 Ectopic0 Multiple0 Live Births0 Bridal Consultant History LMP: Postmenopausal Age at Menarche: Age at First : Age at Menopause: Bridal Consultant History Comments: Sexual Activity: Never; No partner data on record Contraception: No contraception data on record PAST MEDICAL HISTORY No date: Chronic airway obstruction, not elsewhere classified No date: Essential hypertension, benign 07/30/2011: Insomnia No date: Obesity, unspecified No date: Open wound of knee, leg (except thigh), and ankle, complicated No date: Other pulmonary embolism and infarction No date: Phlebitis and thrombophlebitis of femoral vein (deep) (superficial) ([facility]) No date: Unspecified sleep apnea PAST SURGICAL HISTORY 04/2004,05/11: ANESTHESIA HERNIA REPAIR LOWER ABDOMEN NOS Comment: gortex put in on 05/11 then taken out06/08 1991: ARTHRP KNE CONDYLEANDPLATU MEDIALANDLAT COMPARTMENTS Comment: bilateral total knee s([place]) 10/24/04 : ARTHRP KNE CONDYLEANDPLATU MEDIALANDLAT COMPARTMENTS Comment: bilateral total knee revisions No date: DELIVERY ONLY Comment: , low cervical No date: CHOLECYSTECTOMY 11/17/2017: COLONOSCOPY FLX DX W/COLLJ SPEC WHEN PFRMD Comment: Colonoscopy 02/17/07: DEBRIDEMENT SUBCUTANEOUS TISSUE 20 SQ CM/< Comment: LEFT LEG [id number]: DEBRIDEMENT SUBCUTANEOUS TISSUE 20 SQ CM/< Comment: LEFT LEG [id number]: DEBRIDEMENT SUBCUTANEOUS TISSUE 20 SQ CM/< Comment: LEFT LEG [id number]: DEBRIDEMENT SUBCUTANEOUS TISSUE 20 SQ CM/< Comment: LEFT LEG [id number]: DEBRIDEMENT SUBCUTANEOUS TISSUE 20 SQ CM/< Comment: LEFT LEG 03/03/07: DEBRIDEMENT SUBCUTANEOUS TISSUE 20 SQ CM/< Comment: LEFT LEG 11/17/2017: ESOPHAGOGASTRODUODENOSCOPY TRANSORAL DIAGNOSTIC Comment: EGD 07/08: GASTRIC BYPASS No date: HEMORRHOIDECTOMY INTERNAL RUBBER BAND LIGATIONS 01/07/2018: HYSTEROSCOPY BX W/WO DANDC 04/10/2016: PAST SURGICAL HISTORY OF Comment: [place] and new knee cap put in right leg 04/25/2016: PAST SURGICAL HISTORY OF Comment: had to debri right leg wound with cellutitis infection FAMILY HISTORY Problem Relation Age of Onset Cancer Mother ovarian Social History Tobacco Use Smoking status: Former Current packs/day: 0.00 Average packs/day: 0.3 packs/day for 1 year (0.3 ttl pk-yrs) Types: Cigarettes Start date: 04/06/1952 Quit date: 04/06/1953 Years since quittin.7 Smokeless tobacco: Never Vaping Use Vaping status: Never Used Substance Use Topics Alcohol use: Yes Comment: occasionally Drug use: No Comment: used drugs for 3 years Current Outpatient Medications Medication Sig levothyroxine (LEVOXYL) 125 mcg tablet Take 1 tablet by mouth once daily. Take on empty stomach. For thyroid. zolpidem (AMBIEN) 10 mg Take 1 tablet by mouth at bedtime as needed for up to 90 days. gabapentin (NEURONTIN) 300 mg capsule Take 1 capsule by mouth three times a day for 180 days. Take one pill 3 times per day Do not start before September 28, 2023. cyclobenzaprine (FLEXERIL) 10 mg tablet Take 1 tablet by mouth three times a day as needed for muscle spasm. polyethylene glycol 3350 (MIRALAX) 17 gram/dose powder Take by mouth once daily. Dissolve dose in 4 - 8 ounces of liquid and take as directed. polyethylene glycol 3350 (MIRALAX) 17 gram/dose powder Take once daily lisinopril-hydroCHLOROthiaz amaya (ZESTORETIC) 10-12.5 mg per tablet Take 1 tablet by mouth once daily. furosemide (LASIX) 40 mg tablet take 1 tablet by mouth every day omeprazole (PRILOSEC) 20 mg capsule Take 1 capsule by mouth once daily. GEMTESA 75 mg tablet Take 1 tablet by mouth every afternoon. aspirin, enteric coated (ASPIRIN, ENTERIC COATED) 81 mg EC tablet Take 81 mg by mouth once daily. amLODIPine (NORVASC) 5 mg tablet Take by mouth. tolterodine ER (DETROL LA) 4 mg 24 hr capsule TAKE 1 CAPSULE BY MOUTH ONCE DAILY acetaminophen (TYLENOL) 500 mg tablet Take 1,0 (more content not included)... Normal [facility] CBC-Complete Blood Cnt No Di ffon 12-01-2023 Erythrocyte distribution width (RBC) [Ratio] 14.3 % Normal 11.6-14.6 [facility] Comment on above: Performed By: #### L 100.0500, L506.1000, L500.3600, L509.1000, L501.0900 ####[facility] [address] [place], [address] Hematocrit (Bld) [Volume fraction] 35.4 % Low 37-47 [facility] Comment on above: Performed By: #### L 100.0500, L506.1000, L500.3600, L509.1000, L501.0900 ####[facility] [address] [place], [address] Hemoglobin (Bld) [Mass/Vol] 10.7 g/dL Low 12.0-15.0 [facility] Comment on above: Performed By: #### L 100.0500, L506.1000, L500.3600, L509.1000, L501.0900 ####[facility] [address] [place], [address] MCH (RBC) [Entitic mass] 31.8 pg Normal 27.0-32.0 [facility] Comment on above: Performed By: #### L 100.0500, L506.1000, L500.3600, L509.1000, L501.0900 ####[facility] [address] [place], [address] MCHC (RBC) [Mass/Vol] 30.2 g/dL Low 32-36 [facility] Comment on above: Performed By: #### L 100.0500, L506.1000, L500.3600, L509.1000, L501.0900 ####[facility] [address] [place], [address] MCV (RBC) [Entitic vol] 105.4 fL High 81-99 [facility] Comment on above: Performed By: #### L 100.0500, L506.1000, L500.3600, L509.1000, L501.0900 ####[facility] [address] [place], [address] Platelet mean volume (Bld) [Entitic vol] 12.3 fL High 6.2-12.0 [facility] Comment on above: Performed By: #### L 100.0500, L506.1000, L500.3600, L509.1000, L501.0900 ####[facility] [address] [place], [address] Platelets (Bld) [#/Vol] 267 10*3/uL Normal 150-450 [facility] Comment on above: Performed By: #### L 100.0500, L506.1000, L500.3600, L509.1000, L501.0900 ####[facility] [address] [place], [address] RBC (Bld) [#/Vol] 3.36 10*6/uL Low 4.2-5.4 [facility] Comment on above: Performed By: #### L 100.0500, L506.1000, L500.3600, L509.1000, L501.0900 ####[facility] [address] [place], [address] RDW SD 55.7 fl High 35.1-43.9 [facility] Comment on above: Performed By: #### L 100.0500, L506.1000, L500.3600, L509.1000, L501.0900 ####[facility] [address] [place], [address] WBC (Bld) [#/Vol] 7.9 10*3/uL Normal 4.4-11.0 [facility] Comment on above: Performed By: #### L 100.0500, L506.1000, L500.3600, L509.1000, L501.0900 ####[facility] [address] [place], [address] PTHINon 12-01-2023 PTH 195.9 pg/mL High 18.4-80.1 [facility] Comment on above: Performed By: #### L 100.0500, L506.1000, L500.3600, L509.1000, L501.0900 ####[facility] [address] [place], [address] Protein+Creatinine Ratio,Uri neon 12-01-2023 PROT:CRE RATIO 316 mg/g CRE High 0-200 [facility] Comment on above: Performed By: #### L 100.0500, L506.1000, L500.3600, L509.1000, L501.0900 ####[facility] [address] [place], [address] Protein (U) [Mass/Vol] 14.9 mg/dL High <11.9 [facility] Comment on above: Performed By: #### L 100.0500, L506.1000, L500.3600, L509.1000, L501.0900 ####[facility] [address] [place], [address] UR CREAT 47.10 mg/dL Normal NO RANGE EST. [facility] Comment on above: Performed By: #### L 100.0500, L506.1000, L500.3600, L509.1000, L501.0900 ####[facility] [address] [place], [address] Renal Profileon 12-01-2023 Albumin [Mass/Vol] 3.1 g/dL Low 3.2-5.0 [facility] Comment on above: Order Comment: PRO Performed By: #### L 100.0500, L506.1000, L500.3600, L509.1000, L501.0900 ####[facility] [address] [place], [address] BUN/CRE 42.6 RATIO High 10-20 [facility] Comment on above: Order Comment: PRO Performed By: #### L 100.0500, L506.1000, L500.3600, L509.1000, L501.0900 ####[facility] [address] [place], [address] CA,Total 8.7 mg/dL Normal 8.5-10.1 [facility] Comment on above: Order Comment: PRO Performed By: #### L 100.0500, L506.1000, L500.3600, L509.1000, L501.0900 ####[facility] [address] [place], [address] Chloride [Moles/Vol] 114 mmol/L High 98-107 [facility] Comment on above: Order Comment: PRO Performed By: #### L 100.0500, L506.1000, L500.3600, L509.1000, L501.0900 ####[facility] [address] [place], [address] CO2 [Moles/Vol] 18.0 mmol/L Low 21.0-32.0 [facility] Comment on above: Order Comment: PRO Performed By: #### L 100.0500, L506.1000, L500.3600, L509.1000, L501.0900 ####[facility] [address] [place], [address] Creatinine [Mass/Vol] 1.88 mg/dL High 0.55-1.02 [facility] Comment on above: Order Comment: PRO Result Comment: The validity of the calculated GFR GFRAA in patients over70 years has not been determined. Clinical correlation isessential. Performed By: #### L 100.0500, L506.1000, L500.3600, L509.1000, L501.0900 ####[facility] [address] [place], [address] EST GFR - AA 33 mL/min Low >60 [facility] Comment on above: Order Comment: PRO Result Comment: Afri can Colombian GFR Calc Performed By: #### L 100.0500, L506.1000, L500.3600, L509.1000, L501.0900 ####[facility] [address] [place], [address] GFR/1.73 sq M.predicted among non-blacks MDRD (S/P/Bld) [Vol rate/Area] 27 mL/min/{1.73_m2} Low >60 [facility] Comment on above: Order Comment: PRO Result Comment: Non- GFR Calc Performed By: #### L 100.0500, L506.1000, L500.3600, L509.1000, L501.0900 ####[facility] [address] [place], [address] Glucose [Mass/Vol] 108 mg/dL High 74-106 [facility] Comment on above: Order Comment: PRO Result Comment: Fast ing Glucose result from 100 to 125 mg/dLsuggests IMPAIRED HOMEOSTASIS per A.D.A. criteria. Performed By: #### L 100.0500, L506.1000, L500.3600, L509.1000, L501.0900 ####[facility] [address] [place], [address] Phosphate [Mass/Vol] 4.4 mg/dL Normal 2.5-4.9 [facility] Comment on above: Order Comment: PRO Performed By: #### L 100.0500, L506.1000, L500.3600, L509.1000, L501.0900 ####[facility] [address] [place], [address] Potassium [Moles/Vol] 4.5 mmol/L Normal 3.5-5.1 [facility] Comment on above: Order Comment: PRO Performed By: #### L 100.0500, L506.1000, L500.3600, L509.1000, L501.0900 ####[facility] [address] [place], [address] Sodium [Moles/Vol] 141 mmol/L Normal 136-145 [facility] Comment on above: Order Comment: PRO Performed By: #### L 100.0500, L506.1000, L500.3600, L509.1000, L501.0900 ####[facility] [address] [place], [address] Urea nitrogen [Mass/Vol] 80 mg/dL High 7-18 [facility] Comment on above: Order Comment: PRO Performed By: #### L 100.0500, L506.1000, L500.3600, L509.1000, L501.0900 ####[facility] [address] [place], [address] Vitamin D,25 Hydroxyon 11-30 Vitamin D 25-OH 28.3 ng/mL Normal [facility] Comment on above: Result Comment: Olya min D 25(OH) Status Range Deficiency <20 ng/mL (50nmol/L) Insufficiency 20 - 30 ng/mL (50 - 75 nmol/L) Sufficiency 30 - 100 ng/mL (75 - 250 nmol/L) Toxicity >100 ng/mL (>250 nmol/L) Performed By: #### L 100.0500, L506.1000, L500.3600, L509.1000, L501.0900 ####[facility] [address] [place], [address] [facility] MARI LOPEZ ([id number]) 1940 F Date Time Provider Department 11/18/23 ROQUE DELGADO [facility] During your visit today, we recorded the following information about you: Jorje Nagel LPN 11/18/2023 11:26 AM Signed Attempted to contact patient to follow up after procedure. Left a brief message asking patient to return call if they have any questions or concerns. Jorje Nagel LPN Allergies As of Date: 11/18/2023 Noted Allergy Reaction BACTRIM (SULFAMETHOXAZOLE-TRIMETH*0 07/23/2016 4 - Hives Comments: Blisters: head to toe IBUPROFEN 11/08/2015 2 - Rash KEFZOL (CEFAZOLIN SODIUM) 08/09/2018 4 - Hives PEANUT 03/31/2023 10 - Anaphylaxis SULFA (SULFONAMIDE ANTIBIOTICS) 07/23/2016 4 - Hives 16 - Unknown Comments: Blisters: head to toe Date Reviewed: 11/16/2023 Reviewed by: Amada Velasco LPN - Fully Assessed Reason for Visit: Procedure [88] Prescriptions as of 11/18/2023 - levothyroxine (LEVOXYL) 125 mcg tablet Take 1 tablet by mouth once daily. Take on empty stomach. For thyroid. - zolpidem (AMBIEN) 10 mg Take 1 tablet by mouth at bedtime as needed for up to 90 days. - gabapentin (NEURONTIN) 300 mg capsule Take 1 capsule by mouth three times a day for 180 days. Take one pill 3 times per day Do not start before September 28, 2023. - cyclobenzaprine (FLEXERIL) 10 mg tablet Take 1 tablet by mouth three times a day as needed for muscle spasm. - polyethylene glycol 3350 (MIRALAX) 17 gram/dose powder Take by mouth once daily. Dissolve dose in 4 - 8 ounces of liquid and take as directed. - polyethylene glycol 3350 (MIRALAX) 17 gram/dose powder Take once daily - lisinopril-hydroCHLOROthiaz amaya (ZESTORETIC) 10-12.5 mg per tablet Take 1 tablet by mouth once daily. - furosemide (LASIX) 40 mg tablet take 1 tablet by mouth every day - omeprazole (PRILOSEC) 20 mg capsule Take 1 capsule by mouth once daily. - GEMTESA 75 mg tablet Take 1 tablet by mouth every afternoon. - aspirin, enteric coated (ASPIRIN, ENTERIC COATED) 81 mg EC tablet Take 81 mg by mouth once daily. - amLODIPine (NORVASC) 5 mg tablet Take by mouth. - tolterodine ER (DETROL LA) 4 mg 24 hr capsule TAKE 1 CAPSULE BY MOUTH ONCE DAILY - acetaminophen (TYLENOL) 500 mg tablet Take 1,000 mg by mouth twice daily. - Diaper,Brief, Adult,Disposable (DEPEND UNDERWEAR FOR WOMEN XL) Use 5/day as needed for urinary incontinence - metoprolol succinate ER (TOPROL XL) 50 mg 24 hr tablet Take by mouth. - Tuhmdefhkml-Ftndvmblu-Zqg C-Mn (GLUCOSAMINE CHONDROITIN MAXSTR) 500-400 mg cap Take 1 capsule by mouth three times daily. - COMPOUNDED PRESCRIPTION Stair lift - DAILY-LUISITO tablet TAKE 1 TABLET BY MOUTH ONCE DAILY. - gycvyzs-knucvlvpe-gcpxiab D3 (CALCIUM 500+D) 500 mg(1,250mg) -200 unit per tablet Take 1 tablet by mouth twice daily with meals. - vitamin b complex (B COMPLETE) tab Take 1 tablet by mouth once daily. - hydrocortisone (ANUSOL-HC) 2.5 % rectal cream 1 application by RECTAL route twice daily. - calcium acetate (PHOSLO) 667 mg capsule TAKE 1 CAPSULE BY MOUTH THREE TIMES DAILY. - Magnesium 200 mg tab Take 200 mg by mouth once daily. - Zinc 50 mg tab Take 1 tablet by mouth once daily. - cholecalciferol (VITAMIN D3) 1,000 unit tab tablet Take 2 tablets by mouth once daily. - senna-docusate (SENNA-S) 8.6-50 mg per tablet Take 1 tablet by mouth once daily. - ascorbic acid(VITAMIN C 500 MG TAB) Take one(1) tablet daily. - VITAMIN E 400 UNIT CAP Take one(1) tablet twice daily. - pyridoxine hcl(VITAMIN B-6 100 MG TAB) Take one(1) tablet daily. - CENTRUM PERFORMANCE TAB Take one(1) tablet daily. Meds Comments as of 10/27/2016: Magnesium, zinc, Glucosamine-chondroitin, Fish-Oil Problem List As Of Date 11/18/2023 Noted Resolved Class 3 severe obesity with body mass index (BM*06/28/2003 BENIGN HYPERTENSION(aka HTN) [I10] 07/21/2003 ASTHMA UNSPECIFIED [J45.909] 07/21/2003 OTHER UNSPEC SLEEP APNEA(aka APNEA) [G47.30] 07/21/2003 Primary osteoarthritis of both knees [M17.0] 07/21/2003 THROMBOPHLEBITIS NOS(aka DVT) [I80.9] 07/21/2003 08/21/2009 PULMON EMBOLISM/INFARCT(aka EMBOLISM) [415.1] 07/21/2003 08/21/2009 VENTRAL HERNIA NEC [K43.9] 03/26/2004 07/01/2007 ASA CLASS III [1003] 05/07/2005 07/12/2021 INJURY TRUNK SITE NEC [MUI0914] 01/16/2006 07/01/2007 Anemia in chronic kidney disease (CKD) [N18.9, *03/17/2006 Non-Healing Surgical Wound [T81.89XA] 03/16/2007 05/18/2009 FEMALE STRESS INCONTINENCE [N39.3] 07/12/2008 MASS IN SUBCUTANEOUS TISSUE [R22.9] 07/21/2008 08/18/2018 Pain in Joint, Lower Leg [M25.569] 11/14/2008 08/21/2009 Rotator cuff syndrome [M75.100] 02/19/2011 Insomnia [G47.00] 07/30/2011 Screening for colon cancer [Z12.11] 11/24/2016 07/12/2021 Dyspepsia [R10.13] 11/24/2016 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 Hypothyroidism, acquired [E0 (more content not included)... Normal [facility] CNOVon 11-09-2023 CNOV [facility] ([facility] ) MARI LOPEZ ([id number]) 1940 F Date Time Provider Department 11/09/23 9:20 AM MIRYAM OROZCO [facility] During your visit today, we recorded the following information about you: Pulse Respiration Blood pressure Weight 104/minute 16/minute 106/60 99 kg Miryam Orozco APRN.DIGITAL DATA ANALYST 11/09/2023 12:07 PM Signed This is a 83 year old female who presents today with: Patient presents with: Follow Up HISTORY OF PRESENT ILLNESS: Mari Lopez is a 83 year old female. Patient presents with: Follow Up 3 month follow up Has recently had some lower BP readings at home. Refers that nephrology noted lower blood pressure reading in their office, recommend discussing with PCP team. Has noticed some mild dizziness with position changes. No chest pain Was hospitalized recently due to fecal impaction, [facility]. Doing well since discharge. Taking Miralax daily. History of incontinence, Following with Dr. Hernandez (urology). Taking Gemtesa 75 mg daily, which has been helpful. Cystoscopy normal. Has bathroom schedule to empty bladder. Chronic back pain: Following with pain management, Dr. Delgado, Had SPR device placement/removal. Feelng well. Knee Pain: Using Voltaren gel as needed. Left Shoulder: Has been having ongoing pain for about 5-6 months. Pain is constant. Has been working on at home exercises. refers that they are discussing possible surgery.Just had steroid injection. Discussion of using a stimulator in the future. LLE: Lasix 40 mg for Lasix daily. CKD4: Following with Nephrology, Dr. Gilmore. HTN: Taking Lisinopril/hctz 10/12.5 mg, Norvasc 5 mg and Toprol XL 50 mg daily. Hypothyroid: Taking levothyroxine 125 mcg daily. Cardiology: Following with Dr. Jackson. Has been working out 3 times weekly and watching diet. Sleep: Taking Ambien 10 mg at bedtime. PAST MEDICAL HISTORY: PAST MEDICAL HISTORY No date: Chronic airway obstruction, not elsewhere classified No date: Essential hypertension, benign 07/30/2011: Insomnia No date: Obesity, unspecified No date: Open wound of knee, leg (except thigh), and ankle, complicated No date: Other pulmonary embolism and infarction No date: Phlebitis and thrombophlebitis of femoral vein (deep) (superficial) ([facility]) No date: Unspecified sleep apnea PAST SURGICAL HISTORY 04/2004,05/11: ANESTHESIA HERNIA REPAIR LOWER ABDOMEN NOS Comment: gortex put in on 05/11 then taken out06/08 1990: ARTHRP KNE CONDYLEANDPLATU MEDIALANDLAT COMPARTMENTS Comment: bilateral total knee s([place]) 10/24/04 : ARTHRP KNE CONDYLEANDPLATU MEDIALANDLAT COMPARTMENTS Comment: bilateral total knee revisions No date: DELIVERY ONLY Comment: , low cervical No date: CHOLECYSTECTOMY 11/17/2017: COLONOSCOPY FLX DX W/COLLJ SPEC WHEN PFRMD Comment: Colonoscopy 02/17/07: DEBRIDEMENT SUBCUTANEOUS TISSUE 20 SQ CM/< Comment: LEFT LEG [id number]: DEBRIDEMENT SUBCUTANEOUS TISSUE 20 SQ CM/< Comment: LEFT LEG [id number]: DEBRIDEMENT SUBCUTANEOUS TISSUE 20 SQ CM/< Comment: LEFT LEG [id number]: DEBRIDEMENT SUBCUTANEOUS TISSUE 20 SQ CM/< Comment: LEFT LEG [id number]: DEBRIDEMENT SUBCUTANEOUS TISSUE 20 SQ CM/< Comment: LEFT LEG 03/03/07: DEBRIDEMENT SUBCUTANEOUS TISSUE 20 SQ CM/< Comment: LEFT LEG 11/17/2017: ESOPHAGOGASTRODUODENOSCOPY TRANSORAL DIAGNOSTIC Comment: EGD 07/08: GASTRIC BYPASS No date: HEMORRHOIDECTOMY INTERNAL RUBBER BAND LIGATIONS 01/07/2018: HYSTEROSCOPY BX W/WO DANDC 04/10/2016: PAST SURGICAL HISTORY OF Comment: [place]ico and new knee cap put in right leg 04/25/2016: PAST SURGICAL HISTORY OF Comment: had to debri right leg wound with cellutitis infection ALLERGIES Bactrim [Sulfamethoxazole-Trimethop rim], Ibuprofen, Kefzol [Cefazolin Sodium], Peanut, and Sulfa (Sulfonamide Antibiotics) MEDICATIONS Current Outpatient Medications Medication Sig levothyroxine (LEVOXYL) 125 mcg tablet Take 1 tablet by mouth once daily. Take on empty stomach. For thyroid. zolpidem (AMBIEN) 10 mg Take 1 tablet by mouth at bedtime as needed for up to 90 days. gabapentin (NEURONTIN) 300 mg capsule Take 1 capsule by mouth three times a day for 180 days. Take one pill 3 times per day Do not start before September 28, 2023. cyclobenzaprine (FLEXERIL) 10 mg tablet Take 1 tablet by mouth three times a day as needed for muscle spasm. polyethylene glycol 3350 (MIRALAX) 17 gram/dose powder Take by mouth once daily. Dissolve dose in 4 - 8 ounces of liquid and take as directed. polyethylene glycol 3350 (MIRALAX) 17 gram/dose powder Take once daily lisinopril-hydroCHLOROthiaz amaya (ZESTORETIC) 10-12.5 mg per tablet Take 1 tablet by mouth once daily. furosemide (LASIX) 40 mg tablet take 1 tablet by mouth every day omeprazole (PRILOSEC) 20 mg capsule Take 1 capsule by mouth once daily. GEMTESA 75 mg tablet Take 1 tablet by mouth every afternoon. aspirin, enteric coated (ASPIRIN, ENTER (more content not included)... Normal [facility] CNCOon 10-28-2023 CNCO Letter Text Normal [facility] CNPNon 10-28-2023 CNPN Telephone (AGSPHWG) MARI LOPEZ ([id number]) 1940 F Date Time Provider Department 10/28/23 ROQUE DELGADO AGSPHWG During your visit today, we recorded the following information about you: Gonzalo Holland 10/28/2023 9:58 AM Signed Procedure(s) being scheduled: RFA 1.Are you diabetic No 2. Are you on any blood thinners? No 3. Are you taking any aspirin? Yes. Please list the current medications being prescribed 81mg asp. 4. Are you currently taking any antibiotics? No 5. Do you have any allergies to latex? No 6. Do you have any allergies to seafood or shellfish? No 7. Do you have any allergies to x-ray dye? No 8. Did the physician instruct you to take any medication prior to your procedure? No 9. Does this procedure require a drop hammer pile driver operator? Yes If yes, has patient been notified that a drop hammer pile driver operator is needed and must be present at check in? yes 10. Were the pre-procedure instructions explained and provided to the patient? Yes 11. Do you have a pacemaker? No 12. Do you have an internal stimulator of any kind? No 13. Have you received the COVID-19 Vaccine? No. (Patient should not receive a procedure including steroids 14 days prior to their first dose of the COVID vaccine. They should not receive any procedure containing steroids in the time frame between their 1st and 2nd doses of the COVID vaccine. They should not receive a procedure containing steroids 14 days after their 2nd dose of the COVID vaccine.) Gonzalo Holland Allergies As of Date: 10/28/2023 Noted Allergy Reaction BACTRIM (SULFAMETHOXAZOLE-TRIMETH*0 07/23/2016 4 - Hives Comments: Blisters: head to toe IBUPROFEN 11/08/2015 2 - Rash KEFZOL (CEFAZOLIN SODIUM) 08/09/2018 4 - Hives PEANUT 03/31/2023 10 - Anaphylaxis SULFA (SULFONAMIDE ANTIBIOTICS) 07/23/2016 4 - Hives 16 - Unknown Comments: Blisters: head to toe Date Reviewed: 08/14/2023 Reviewed by: Keyana Greenberg PA-C - Fully Assessed Reason for Visit: Injections [199] Prescriptions as of 10/28/2023 - levothyroxine (LEVOXYL) 125 mcg tablet Take 1 tablet by mouth once daily. Take on empty stomach. For thyroid. - zolpidem (AMBIEN) 10 mg Take 1 tablet by mouth at bedtime as needed for up to 90 days. - gabapentin (NEURONTIN) 300 mg capsule Take 1 capsule by mouth three times a day for 180 days. Take one pill 3 times per day Do not start before September 28, 2023. - cyclobenzaprine (FLEXERIL) 10 mg tablet Take 1 tablet by mouth three times a day as needed for muscle spasm. - polyethylene glycol 3350 (MIRALAX) 17 gram/dose powder Take by mouth once daily. Dissolve dose in 4 - 8 ounces of liquid and take as directed. - polyethylene glycol 3350 (MIRALAX) 17 gram/dose powder Take once daily - lisinopril-hydroCHLOROthiaz amaya (ZESTORETIC) 10-12.5 mg per tablet Take 1 tablet by mouth once daily. - furosemide (LASIX) 40 mg tablet take 1 tablet by mouth every day - omeprazole (PRILOSEC) 20 mg capsule Take 1 capsule by mouth once daily. - GEMTESA 75 mg tablet Take 1 tablet by mouth every afternoon. - aspirin, enteric coated (ASPIRIN, ENTERIC COATED) 81 mg EC tablet Take 81 mg by mouth once daily. - amLODIPine (NORVASC) 5 mg tablet Take by mouth. - tolterodine ER (DETROL LA) 4 mg 24 hr capsule TAKE 1 CAPSULE BY MOUTH ONCE DAILY - acetaminophen (TYLENOL) 500 mg tablet Take 1,000 mg by mouth twice daily. - Diaper,Brief, Adult,Disposable (DEPEND UNDERWEAR FOR WOMEN XL) Use 5/day as needed for urinary incontinence - metoprolol succinate ER (TOPROL XL) 50 mg 24 hr tablet Take by mouth. - Tagndpzytdq-Zkvfplztx-Ifx C-Mn (GLUCOSAMINE CHONDROITIN MAXSTR) 500-400 mg cap Take 1 capsule by mouth three times daily. - COMPOUNDED PRESCRIPTION Stair lift - DAILY-LUISITO tablet TAKE 1 TABLET BY MOUTH ONCE DAILY. - nwpnbpc-chhwnzqxl-dojbjcg D3 (CALCIUM 500+D) 500 mg(1,250mg) -200 unit per tablet Take 1 tablet by mouth twice daily with meals. - vitamin b complex (B COMPLETE) tab Take 1 tablet by mouth once daily. - hydrocortisone (ANUSOL-HC) 2.5 % rectal cream 1 application by RECTAL route twice daily. - calcium acetate (PHOSLO) 667 mg capsule TAKE 1 CAPSULE BY MOUTH THREE TIMES DAILY. - Magnesium 200 mg tab Take 200 mg by mouth once daily. - Zinc 50 mg tab Take 1 tablet by mouth once daily. - cholecalciferol (VITAMIN D3) 1,000 unit tab tablet Take 2 tablets by mouth once daily. - senna-docusate (SENNA-S) 8.6-50 mg per tablet Take 1 tablet by mouth once daily. - ascorbic acid(VITAMIN C 500 MG TAB) Take one(1) tablet daily. - VITAMIN E 400 UNIT CAP Take one(1) tablet twice daily. - pyridoxine hcl(VITAMIN B-6 100 MG TAB) Take one(1) tablet daily. - CENTRUM PERFORMANCE TAB Take one(1) tablet daily. Meds Comments as of 10/27/2016: Magnesium, zinc, Glucosamine-chondroitin, Fish-Oil Problem List As Of Date 10/28/2023 Noted Resolved Class 3 severe obesity with body m (more content not included)... Normal [facility] CNPNon 10-27-2023 CNPN Telephone (AGSPINE3) MARI LOPEZ ([id number]) 1940 F Date Time Provider Department 10/27/23 ROQUE DELGADO AGSPINE3 During your visit today, we recorded the following information about you: Sofía Crowe 10/27/2023 4:19 PM Signed ----- Message from Francine De Souza sent at 10/27/2023 4:09 PM EDT ----- Regarding: Spine AND Pain / Roque Delgado) / Procedure / Injection Contact: Spine AND Pain / Roque Delgado) / Procedure / Injection Patient has been identified by name and Date of (Y/N): y Patient: Mari Lopez Date of : 1940 Provider for this encounter: Dr Delgado Reason for the call/escalation: called to sched injection in R shoulder w/ Dr Delgado Person calling if other than patient: n/a Return call to if other than patient: n/a Best contact number: [phone] Thank you, Francine De Souza October 27, 2023 4:09 PM Gonzalo Holland 10/28/2023 10:07 AM Signed Patient has been scheduled. Gonzalo Holland Allergies As of Date: 10/27/2023 Noted Allergy Reaction BACTRIM (SULFAMETHOXAZOLE-TRIMETH*0 07/23/2016 4 - Hives Comments: Blisters: head to toe IBUPROFEN 11/08/2015 2 - Rash KEFZOL (CEFAZOLIN SODIUM) 08/09/2018 4 - Hives PEANUT 03/31/2023 10 - Anaphylaxis SULFA (SULFONAMIDE ANTIBIOTICS) 07/23/2016 4 - Hives 16 - Unknown Comments: Blisters: head to toe Date Reviewed: 08/14/2023 Reviewed by: Keyana Greenberg PA-C - Fully Assessed Reason for Visit: Returning Patient's Call [408] Prescriptions as of 10/28/2023 - levothyroxine (LEVOXYL) 125 mcg tablet Take 1 tablet by mouth once daily. Take on empty stomach. For thyroid. - zolpidem (AMBIEN) 10 mg Take 1 tablet by mouth at bedtime as needed for up to 90 days. - gabapentin (NEURONTIN) 300 mg capsule Take 1 capsule by mouth three times a day for 180 days. Take one pill 3 times per day Do not start before September 28, 2023. - cyclobenzaprine (FLEXERIL) 10 mg tablet Take 1 tablet by mouth three times a day as needed for muscle spasm. - polyethylene glycol 3350 (MIRALAX) 17 gram/dose powder Take by mouth once daily. Dissolve dose in 4 - 8 ounces of liquid and take as directed. - polyethylene glycol 3350 (MIRALAX) 17 gram/dose powder Take once daily - lisinopril-hydroCHLOROthiaz amaya (ZESTORETIC) 10-12.5 mg per tablet Take 1 tablet by mouth once daily. - furosemide (LASIX) 40 mg tablet take 1 tablet by mouth every day - omeprazole (PRILOSEC) 20 mg capsule Take 1 capsule by mouth once daily. - GEMTESA 75 mg tablet Take 1 tablet by mouth every afternoon. - aspirin, enteric coated (ASPIRIN, ENTERIC COATED) 81 mg EC tablet Take 81 mg by mouth once daily. - amLODIPine (NORVASC) 5 mg tablet Take by mouth. - tolterodine ER (DETROL LA) 4 mg 24 hr capsule TAKE 1 CAPSULE BY MOUTH ONCE DAILY - acetaminophen (TYLENOL) 500 mg tablet Take 1,000 mg by mouth twice daily. - Diaper,Brief, Adult,Disposable (DEPEND UNDERWEAR FOR WOMEN XL) Use 5/day as needed for urinary incontinence - metoprolol succinate ER (TOPROL XL) 50 mg 24 hr tablet Take by mouth. - Mitediodahb-Imfxgubez-Bhl C-Mn (GLUCOSAMINE CHONDROITIN MAXSTR) 500-400 mg cap Take 1 capsule by mouth three times daily. - COMPOUNDED PRESCRIPTION Stair lift - DAILY-LUISITO tablet TAKE 1 TABLET BY MOUTH ONCE DAILY. - neziwsi-xplcrpmdu-nunvdbf D3 (CALCIUM 500+D) 500 mg(1,250mg) -200 unit per tablet Take 1 tablet by mouth twice daily with meals. - vitamin b complex (B COMPLETE) tab Take 1 tablet by mouth once daily. - hydrocortisone (ANUSOL-HC) 2.5 % rectal cream 1 application by RECTAL route twice daily. - calcium acetate (PHOSLO) 667 mg capsule TAKE 1 CAPSULE BY MOUTH THREE TIMES DAILY. - Magnesium 200 mg tab Take 200 mg by mouth once daily. - Zinc 50 mg tab Take 1 tablet by mouth once daily. - cholecalciferol (VITAMIN D3) 1,000 unit tab tablet Take 2 tablets by mouth once daily. - senna-docusate (SENNA-S) 8.6-50 mg per tablet Take 1 tablet by mouth once daily. - ascorbic acid(VITAMIN C 500 MG TAB) Take one(1) tablet daily. - VITAMIN E 400 UNIT CAP Take one(1) tablet twice daily. - pyridoxine hcl(VITAMIN B-6 100 MG TAB) Take one(1) tablet daily. - CENTRUM PERFORMANCE TAB Take one(1) tablet daily. Meds Comments as of 10/27/2016: Magnesium, zinc, Glucosamine-chondroitin, Fish-Oil Problem List As Of Date 10/27/2023 Noted Resolved Class 3 severe obesity with body mass index (BM*06/28/2003 BENIGN HYPERTENSION(aka HTN) [I10] 07/21/2003 ASTHMA UNSPECIFIED [J45.909] 07/21/2003 OTHER UNSPEC SLEEP APNEA(aka APNEA) [G47.30] 07/21/2003 Primary osteoarthritis of both knees [M17.0] 07/21/2003 THROMBOPHLEBITIS NOS(aka DVT) [I80.9] 07/21/2003 08/21/2009 PULMON EMBOLISM/INFARCT(aka EMBOLISM) [415.1] 07/21/2003 08/21/2009 VENTRAL HERNIA NEC [K43.9] 03/26/2004 07/01/2007 ASA CLASS III [1003] 05/07/2005 07/12/2021 INJURY TRUNK SITE (more content not included)... Normal [facility] Cardiology Visit Reporton Cardiology Visit Report Normal [facility] Knee 1 or 2 Viewson 10-06-19 Knee 1 or 2 Views Normal [facility] Venous Duplex US - Portia Extre mon 10-06-2023 Venous Duplex US - Portia Extrem [facility] CNPNon 08-28-2023 CNPN Telephone (SPAGBA) MARI LOPEZ ([id number]) 1940 F Date Time Provider Department 08/28/23 ROQUE DELAGDO SPAGBPhilippe During your visit today, we recorded the following information about you: Allergies As of Date: 08/28/2023 Noted Allergy Reaction BACTRIM (SULFAMETHOXAZOLE-TRIMETH*0 07/23/2016 4 - Hives Comments: Blisters: head to toe IBUPROFEN 11/08/2015 2 - Rash KEFZOL (CEFAZOLIN SODIUM) 08/09/2018 4 - Hives PEANUT 03/31/2023 10 - Anaphylaxis SULFA (SULFONAMIDE ANTIBIOTICS) 07/23/2016 4 - Hives 16 - Unknown Comments: Blisters: head to toe Date Reviewed: 08/14/2023 Reviewed by: Keyana Greenberg PA-C - Fully Assessed Prescriptions as of 08/28/2023 - gabapentin (NEURONTIN) 300 mg capsule Take 1 capsule by mouth three times a day for 180 days. Take one pill 3 times per day Do not start before September 28, 2023. - cyclobenzaprine (FLEXERIL) 10 mg tablet Take 1 tablet by mouth three times a day as needed for muscle spasm. - polyethylene glycol 3350 (MIRALAX) 17 gram/dose powder Take by mouth once daily. Dissolve dose in 4 - 8 ounces of liquid and take as directed. - polyethylene glycol 3350 (MIRALAX) 17 gram/dose powder Take once daily - lisinopril-hydroCHLOROthiaz amaya (ZESTORETIC) 10-12.5 mg per tablet Take 1 tablet by mouth once daily. - zolpidem (AMBIEN) 10 mg Take 1 tablet by mouth at bedtime as needed for up to 90 days. - furosemide (LASIX) 40 mg tablet take 1 tablet by mouth every day - omeprazole (PRILOSEC) 20 mg capsule Take 1 capsule by mouth once daily. - GEMTESA 75 mg tablet Take 1 tablet by mouth every afternoon. - aspirin, enteric coated (ASPIRIN, ENTERIC COATED) 81 mg EC tablet Take 81 mg by mouth once daily. - levothyroxine (LEVOXYL) 125 mcg tablet Take 1 tablet by mouth once daily. Take on empty stomach. For thyroid. - amLODIPine (NORVASC) 5 mg tablet Take by mouth. - tolterodine ER (DETROL LA) 4 mg 24 hr capsule TAKE 1 CAPSULE BY MOUTH ONCE DAILY - acetaminophen (TYLENOL) 500 mg tablet Take 1,000 mg by mouth twice daily. - Diaper,Brief, Adult,Disposable (DEPEND UNDERWEAR FOR WOMEN XL) Use 5/day as needed for urinary incontinence - metoprolol succinate ER (TOPROL XL) 50 mg 24 hr tablet Take by mouth. - Yuzhlmgmlsk-Zliuysayg-Jjc C-Mn (GLUCOSAMINE CHONDROITIN MAXSTR) 500-400 mg cap Take 1 capsule by mouth three times daily. - COMPOUNDED PRESCRIPTION Stair lift - DAILY-LUISITO tablet TAKE 1 TABLET BY MOUTH ONCE DAILY. - lojxoxi-hobsjuujk-jcrmhzh D3 (CALCIUM 500+D) 500 mg(1,250mg) -200 unit per tablet Take 1 tablet by mouth twice daily with meals. - vitamin b complex (B COMPLETE) tab Take 1 tablet by mouth once daily. - hydrocortisone (ANUSOL-HC) 2.5 % rectal cream 1 application by RECTAL route twice daily. - calcium acetate (PHOSLO) 667 mg capsule TAKE 1 CAPSULE BY MOUTH THREE TIMES DAILY. - Magnesium 200 mg tab Take 200 mg by mouth once daily. - Zinc 50 mg tab Take 1 tablet by mouth once daily. - cholecalciferol (VITAMIN D3) 1,000 unit tab tablet Take 2 tablets by mouth once daily. - senna-docusate (SENNA-S) 8.6-50 mg per tablet Take 1 tablet by mouth once daily. - ascorbic acid(VITAMIN C 500 MG TAB) Take one(1) tablet daily. - VITAMIN E 400 UNIT CAP Take one(1) tablet twice daily. - pyridoxine hcl(VITAMIN B-6 100 MG TAB) Take one(1) tablet daily. - CENTRUM PERFORMANCE TAB Take one(1) tablet daily. Meds Comments as of 10/27/2016: Magnesium, zinc, Glucosamine-chondroitin, Fish-Oil Problem List As Of Date 08/28/2023 Noted Resolved Class 3 severe obesity with body mass index (BM*06/28/2003 BENIGN HYPERTENSION(aka HTN) [I10] 07/21/2003 ASTHMA UNSPECIFIED [J45.909] 07/21/2003 OTHER UNSPEC SLEEP APNEA(aka APNEA) [G47.30] 07/21/2003 Primary osteoarthritis of both knees [M17.0] 07/21/2003 THROMBOPHLEBITIS NOS(aka DVT) [I80.9] 07/21/2003 08/21/2009 PULMON EMBOLISM/INFARCT(aka EMBOLISM) [415.1] 07/21/2003 08/21/2009 VENTRAL HERNIA NEC [K43.9] 03/26/2004 07/01/2007 ASA CLASS III [1003] 05/07/2005 07/12/2021 INJURY TRUNK SITE NEC [[id number]] 01/16/2006 07/01/2007 Anemia in chronic kidney disease (CKD) [N18.9, *03/17/2006 Non-Healing Surgical Wound [T81.89XA] 03/16/2007 05/18/2009 FEMALE STRESS INCONTINENCE [N39.3] 07/12/2008 MASS IN SUBCUTANEOUS TISSUE [R22.9] 07/21/2008 08/18/2018 Pain in Joint, Lower Leg [M25.569] 11/14/2008 08/21/2009 Rotator cuff syndrome [M75.100] 02/19/2011 Insomnia [G47.00] 07/30/2011 Screening for colon cancer [Z12.11] 11/24/2016 07/12/2021 Dyspepsia [R10.13] 11/24/2016 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 Hypothyroidism, acquired [E03.9] 04/19/2018 Renal failure [N19] 05/01/2020 Chronic midline low back pain with sciatica [M5*10/16/2021 Lymphedema [I89.0] 11/22/2021 Lumbar spondylosis [M47.816] 12/25/2021 Encounter Status:Closed by MEHDI VALDIVIA on 08/28/23 [facility] CNPLuz Maria 08-27-2023 CNPN Telephone (AGSPINE3) MARI LOPEZ ([id number]) 1940 F Date Time Provider Department 08/27/23 ROQUE DELGADO AGSPINE3 During your visit today, we recorded the following information about you: Sofía Crowe 08/27/2023 3:02 PM Signed ----- Message from Aaliyah Hoffman sent at 08/27/2023 2:59 PM EDT ----- Regarding: Spine/Gcyq-Dge-Bxgffdkec for Shoulder Patient: Mari Lopez Date of : 1940 Primary Care Provider: Lizy Capone MD Patient has been identified by name and Date of (Y/N): y Patient: Mari Lopez Date of : 1940 Provider for this encounter: Lizy Capone MD Reason for the call/escalation: Patient is wanting to do R shoulder injection with delgado Was Patient Referred to [facility]/Seek Emergency Treatment (Y/N): n/a Did Patient Agree (Y/N): n/a Was An Attempt Made To Transfer The Patient To The Office (Y/N): n/a Were You Able To Reach Someone At The Office (Y/N): n/a If Yes - Patient Was Transferred To (Caregivers Name): n/a If No - Which [facility] Leadership Portal Administrator Did You Speak With Regarding This Patient: n/a Was an appointment scheduled (Y/N): n Reason patient was requesting visit (RFV/signs and symptoms/diagnosis) : injection Person calling if other than patient: n/a Return call to if other than patient: n/a Best contact number: [phone] Thank you, Aaliyah Hoffman August 27, 2023 2:59 PM Mehdi Valdivia 08/28/2023 2:26 PM Signed Called patient to schedule an appointment. LVM Allergies As of Date: 08/27/2023 Noted Allergy Reaction BACTRIM (SULFAMETHOXAZOLE-TRIMETH*0 07/23/2016 4 - Hives Comments: Blisters: head to toe IBUPROFEN 11/08/2015 2 - Rash KEFZOL (CEFAZOLIN SODIUM) 08/09/2018 4 - Hives PEANUT 03/31/2023 10 - Anaphylaxis SULFA (SULFONAMIDE ANTIBIOTICS) 07/23/2016 4 - Hives 16 - Unknown Comments: Blisters: head to toe Date Reviewed: 08/14/2023 Reviewed by: Keyana Greenberg PA-C - Fully Assessed Reason for Visit: Returning Patient's Call [408] Prescriptions as of 08/28/2023 - gabapentin (NEURONTIN) 300 mg capsule Take 1 capsule by mouth three times a day for 180 days. Take one pill 3 times per day Do not start before September 28, 2023. - cyclobenzaprine (FLEXERIL) 10 mg tablet Take 1 tablet by mouth three times a day as needed for muscle spasm. - polyethylene glycol 3350 (MIRALAX) 17 gram/dose powder Take by mouth once daily. Dissolve dose in 4 - 8 ounces of liquid and take as directed. - polyethylene glycol 3350 (MIRALAX) 17 gram/dose powder Take once daily - lisinopril-hydroCHLOROthiaz amaya (ZESTORETIC) 10-12.5 mg per tablet Take 1 tablet by mouth once daily. - zolpidem (AMBIEN) 10 mg Take 1 tablet by mouth at bedtime as needed for up to 90 days. - furosemide (LASIX) 40 mg tablet take 1 tablet by mouth every day - omeprazole (PRILOSEC) 20 mg capsule Take 1 capsule by mouth once daily. - GEMTESA 75 mg tablet Take 1 tablet by mouth every afternoon. - aspirin, enteric coated (ASPIRIN, ENTERIC COATED) 81 mg EC tablet Take 81 mg by mouth once daily. - levothyroxine (LEVOXYL) 125 mcg tablet Take 1 tablet by mouth once daily. Take on empty stomach. For thyroid. - amLODIPine (NORVASC) 5 mg tablet Take by mouth. - tolterodine ER (DETROL LA) 4 mg 24 hr capsule TAKE 1 CAPSULE BY MOUTH ONCE DAILY - acetaminophen (TYLENOL) 500 mg tablet Take 1,000 mg by mouth twice daily. - Diaper,Brief, Adult,Disposable (DEPEND UNDERWEAR FOR WOMEN XL) Use 5/day as needed for urinary incontinence - metoprolol succinate ER (TOPROL XL) 50 mg 24 hr tablet Take by mouth. - Shlrwvilrcw-Xqrfgtlpq-Ltp C-Mn (GLUCOSAMINE CHONDROITIN MAXSTR) 500-400 mg cap Take 1 capsule by mouth three times daily. - COMPOUNDED PRESCRIPTION Stair lift - DAILY-LUISITO tablet TAKE 1 TABLET BY MOUTH ONCE DAILY. - liramng-anzbrotfa-fvyklsw D3 (CALCIUM 500+D) 500 mg(1,250mg) -200 unit per tablet Take 1 tablet by mouth twice daily with meals. - vitamin b complex (B COMPLETE) tab Take 1 tablet by mouth once daily. - hydrocortisone (ANUSOL-HC) 2.5 % rectal cream 1 application by RECTAL route twice daily. - calcium acetate (PHOSLO) 667 mg capsule TAKE 1 CAPSULE BY MOUTH THREE TIMES DAILY. - Magnesium 200 mg tab Take 200 mg by mouth once daily. - Zinc 50 mg tab Take 1 tablet by mouth once daily. - cholecalciferol (VITAMIN D3) 1,000 unit tab tablet Take 2 tablets by mouth once daily. - senna-docusate (SENNA-S) 8.6-50 mg per tablet Take 1 tablet by mouth once daily. - ascorbic acid(VITAMIN C 500 MG TAB) Take one(1) tablet daily. - VITAMIN E 400 UNIT CAP Take one(1) tablet twice daily. - pyridoxine hcl(VITAMIN B-6 100 MG TAB) Take one(1) tablet daily. - CENTRUM PERFORMANCE TAB Take one(1) tablet daily. Meds Comments as of 10/27/2016: Magnesium, zinc, Glucosamine-chondroitin, Fish-Oil Problem List As (more content not included)... Normal [facility] Absolute lymphocyte countOrd ered By: Ralph Haynes on 06-09-2023 Lymphocytes Auto (Unsp spec) [#/Vol] 1.80 10*3/uL 0.83-4.51 [facility] Automated lymphocyte count a s percentage of total leukocytesOrdered By: Ralph Haynes on 06-09-2023 Lymphocytes/100 WBC Auto (Unsp spec) 39.0 % 19-41 [facility] Basophil percentageOrdered B y: Ralph Haynes on 06-09-2023 Basophil percentage 4.2 mg/dL 2.5-4.9 [facility] Basophils/100 WBC (Bld) 0.7 % 0-1 [facility] Chloride [Moles/Vol] 118 mmol/L 98-107 [facility] Eosinophils/100 WBC (Bld) 8.5 % 0-5 [facility] Glucose [Mass/Vol] 83 mg/dL 74-106 [facility] Hemoglobin (Bld) [Mass/Vol] 10.2 g/dL 12.0-15.0 [facility] Monocytes/100 WBC (Bld) 8.9 % 0-10 [facility] Neutrophils (Bld) [#/Vol] 2.0 10*3/uL 2.0-7.7 [facility] Neutrophils/100 WBC (Bld) 42.7 % 47-70 [facility] Potassium [Moles/Vol] 5.0 mmol/L 3.5-5.1 [facility] Sodium [Moles/Vol] 140 mmol/L 136-145 [facility] WBC (Bld) [#/Vol] 4.6 10*3/uL 4.4-11.0 [facility] Determination of erythrocyte mean corpuscular volume (MCV)Ordered By: Ralph Haynes on 06-09-2023 MCV (RBC) [Entitic vol] 108.0 fL 81-99 [facility] Erythrocyte distribution wid th ratioOrdered By: Ralph Haynes on 06-09-2023 Erythrocyte distribution width (RBC) [Ratio] 13.7 % 11.6-14.6 [facility] Erythrocyte distribution wid th standard deviationOrdered By: Ralph Haynes on 06-09-2023 Erythrocyte distribution width (RBC) [Entitic vol] 54.6 fL 35.1-43.9 [facility] Hematocrit Auto (Bld) [Volum e fraction]Ordered By: Ralph Haynes on 06-09-2023 Hematocrit (Bld) [Volume fraction] 33.6 % 37-47 [facility] Immature granulocytes/100 WB C Auto (Bld)Ordered By: Ralph Haynes on 06-09-2023 Immature granulocytes/100 WBC (Bld) 0.200 % 0.0-0.9 [facility] Comment on above: IG% - Immature Granu locytes (promyelocytes, myelocytes and metamyelocytes) > 1% indicates that a LEFT SHIFT is Present. Laboratory - Chemistry and C hemistry - challengeOrdered By: aRlph Haynes on 06-09-2023 CO2 [Moles/Vol] 18.0 mmol/L 21.0-32.0 [facility] Magnesium [Mass/Vol] 2.5 mg/dL 1.6-2.6 [facility] Urea nitrogen/Creatinine [Mass ratio] 36.2 mg/mg 10-20 [facility] Laboratory - Hematology and Cell countsOrdered By: Ralph Haynes on 06-09-2023 MCH (RBC) [Entitic mass] 32.8 pg 27.0-32.0 [facility] MCHC (RBC) [Mass/Vol] 30.4 g/dL 32-36 [facility] Nucleated RBC/100 WBC (Bld) [Ratio] 0 % 0-5 [facility] Platelet mean volume (Bld) [Entitic vol] 12.6 fL 6.2-12.0 [facility] Platelets (Bld) [#/Vol] 188 10*3/uL 150-450 [facility] No Panel InformationOrdered By: Ralph Haynes on 06-09-2023 Estimated Creatinine Clearance Calc 30.22 ml/min [facility] Estimated GFR (MDRD) Amer 39 mL/min >60 [facility] Comment on above: GFR Calc Estimated GFR (MDRD) Non-Af Amer 32 mL/min >60 [facility] Comment on above: Non- GFR Calc RBC Auto (Bld) [#/Vol]Ordere d By: Ralph Haynes on 06-09-2023 RBC (Bld) [#/Vol] 3.11 10*6/uL 4.2-5.4 [facility] Serum or plasma calcium farheen urement (mass/volume)Ordered By: Ralph Haynes on 06-09-2023 Calcium [Mass/Vol] 8.2 mg/dL 8.5-10.1 [facility] Serum or plasma creatinine m easurement (mass/volume)Ordered By: Ralph Haynes on 06-09-2023 Creatinine [Mass/Vol] 1.63 mg/dL 0.55-1.02 [facility] Comment on above: The validity of the calculated GFR & GFRAA in patients over 70 years has not been determined. Clinical correlation is essential. Serum or plasma urea nitroge n measurement (mass/volume)Ordered By: Ralph Haynes on 06-09-2023 Urea nitrogen [Mass/Vol] 59 mg/dL 7-18 [facility] Thin prep Papanicolaou smear with manual screeningOrdered By: Ralph Haynes on 06-09-2023 Thin prep Papanicolaou smear with manual screening 4 5-15 [facility] Basophil percentageOrdered B y: Ralph Smith on 06-08-2023 Bilirubin [Mass/Vol] 0.30 mg/dL 0.20-1.00 [facility] Comment on above: For patients on eltr ombopag therapy, use of Dim[place] TBIL is not recommended. Protein [Mass/Vol] 6.5 g/dL 6.4-8.2 [facility] Laboratory - Chemistry and C hemistry - challengeOrdered By: Ralph Smith on 06-08-2023 Albumin/Globulin [Mass ratio] 0.9 {ratio} 0.9-2.4 [facility] ALP [Catalytic activity/Vol] 82 U/L 45-117 [facility] ALT [Catalytic activity/Vol] 26 U/L 13-56 [facility] Globulin (S) [Mass/Vol] 3.4 g/dL 2.2-4.2 [facility] Serum or plasma thyroid stim ulating hormone (TSH) measurement (units/volume)Ordered By: Ralph Smith on 06-08-2023 TSH Qn 5.75 uIU/mL 0.358-3.74 [facility] Thin prep Papanicolaou smear with manual screeningOrdered By: Ralph Smith on 06-08-2023 Thin prep Papanicolaou smear with manual screening 3.1 g/dL 3.2-5.0 [facility] Thin prep Papanicolaou smear with manual screening 27 U/L 15-37 [facility] Absolute lymphocyte countOrd ered By: Weston Delacruz on 06-07-2023 Lymphocytes Auto (Unsp spec) [#/Vol] 1.14 10*3/uL 0.83-4.51 [facility] Automated lymphocyte count a s percentage of total leukocytesOrdered By: Weston Delacruz on 06-07-2023 Lymphocytes/100 WBC Auto (Unsp spec) 14.2 % 19-41 [facility] Basophil percentageOrdered B y: Weston Delacruz on 06-07-2023 Basophils/100 WBC (Bld) 1.0 % 0-1 [facility] Bilirubin [Mass/Vol] 0.40 mg/dL 0.20-1.00 [facility] Comment on above: For patients on eltr ombopag therapy, use of [place] TBIL is not recommended. Chloride [Moles/Vol] 112 mmol/L 98-107 [facility] Eosinophils/100 WBC (Bld) 3.9 % 0-5 [facility] Glucose [Mass/Vol] 102 mg/dL 74-106 [facility] Comment on above: Fasting Glucose resu lt from 100 to 125 mg/dL suggests IMPAIRED HOMEOSTASIS per A.D.A. criteria. Hemoglobin (Bld) [Mass/Vol] 12.6 g/dL 12.0-15.0 [facility] Monocytes/100 WBC (Bld) 5.8 % 0-10 [facility] Neutrophils (Bld) [#/Vol] 6.0 10*3/uL 2.0-7.7 [facility] Neutrophils/100 WBC (Bld) 74.9 % 47-70 [facility] Potassium [Moles/Vol] 4.6 mmol/L 3.5-5.1 [facility] Comment on above: Moderate Hemolysis, Result may be falsely increased. Protein [Mass/Vol] 7.6 g/dL 6.4-8.2 [facility] Sodium [Moles/Vol] 139 mmol/L 136-145 [facility] WBC (Bld) [#/Vol] 8.1 10*3/uL 4.4-11.0 [facility] Determination of erythrocyte mean corpuscular volume (MCV)Ordered By: Weston Delacruz on 06-07-2023 MCV (RBC) [Entitic vol] 107.3 fL 81-99 [facility] Erythrocyte distribution wid th ratioOrdered By: Weston Delacruz on 06-07-2023 Erythrocyte distribution width (RBC) [Ratio] 13.7 % 11.6-14.6 [facility] Erythrocyte distribution wid th standard deviationOrdered By: Weston Delacruz on 06-07-2023 Erythrocyte distribution width (RBC) [Entitic vol] 54.8 fL 35.1-43.9 [facility] Hematocrit Auto (Bld) [Volum e fraction]Ordered By: Weston Delacruz on 06-07-2023 Hematocrit (Bld) [Volume fraction] 41.1 % 37-47 [facility] Immature granulocytes/100 WB C Auto (Bld)Ordered By: Weston Delacruz on 06-07-2023 Immature granulocytes/100 WBC (Bld) 0.200 % 0.0-0.9 [facility] Comment on above: IG% - Immature Granu locytes (promyelocytes, myelocytes and metamyelocytes) > 1% indicates that a LEFT SHIFT is Present. Laboratory - Chemistry and C hemistry - challengeOrdered By: Weston Delacruz on 06-07-2023 Albumin/Globulin [Mass ratio] 0.9 {ratio} 0.9-2.4 [facility] ALP [Catalytic activity/Vol] 82 U/L 45-117 [facility] ALT [Catalytic activity/Vol] 23 U/L 13-56 [facility] CO2 [Moles/Vol] 20.0 mmol/L 21.0-32.0 [facility] Globulin (S) [Mass/Vol] 3.9 g/dL 2.2-4.2 [facility] Urea nitrogen/Creatinine [Mass ratio] 36.0 mg/mg 10-20 [facility] Laboratory - Hematology and Cell countsOrdered By: Weston Delacruz on 06-07-2023 MCH (RBC) [Entitic mass] 32.9 pg 27.0-32.0 [facility] MCHC (RBC) [Mass/Vol] 30.7 g/dL 32-36 [facility] Nucleated RBC/100 WBC (Bld) [Ratio] 0 % 0-5 [facility] Platelet mean volume (Bld) [Entitic vol] 12.5 fL 6.2-12.0 [facility] Platelets (Bld) [#/Vol] 248 10*3/uL 150-450 [facility] No Panel InformationOrdered By: Weston Delacruz on 06-07-2023 Estimated Creatinine Clearance Calc 19.95 ml/min [facility] Estimated GFR (MDRD) Amer 25 mL/min >60 [facility] Comment on above: GFR Calc Estimated GFR (MDRD) Non-Af Amer 20 mL/min >60 [facility] Comment on above: Non- GFR Calc RBC Auto (Bld) [#/Vol]Ordere d By: Weston Delacruz on 06-07-2023 RBC (Bld) [#/Vol] 3.83 10*6/uL 4.2-5.4 [facility] Serum or plasma calcium farheen urement (mass/volume)Ordered By: Weston Delacruz on 06-07-2023 Calcium [Mass/Vol] 9.3 mg/dL 8.5-10.1 [facility] Serum or plasma creatinine m easurement (mass/volume)Ordered By: Weston Delacruz on 06-07-2023 Creatinine [Mass/Vol] 2.42 mg/dL 0.55-1.02 [facility] Comment on above: The validity of the calculated GFR & GFRAA in patients over 70 years has not been determined. Clinical correlation is essential. Serum or plasma urea nitroge n measurement (mass/volume)Ordered By: Weston Delacruz on 06-07-2023 Urea nitrogen [Mass/Vol] 87 mg/dL 7-18 [facility] Thin prep Papanicolaou smear with manual screeningOrdered By: Weston Delacruz on 06-07-2023 Thin prep Papanicolaou smear with manual screening 3.7 g/dL 3.2-5.0 [facility] Thin prep Papanicolaou smear with manual screening 23 U/L 15-37 [facility] Comment on above: Moderate Hemolysis, Result may be falsely increased. Thin prep Papanicolaou smear with manual screening 7 5-15 [facility] CNCOon 06-04-2023 CNCO Letter Text Normal [facility] CNPNon 06-04-2023 CNPN Telephone (SPAGWO) MARI LOPEZ ([id number]) 1940 F Date Time Provider Department 06/04/23 REBEKAH BOBO During your visit today, we recorded the following information about you: Jennifer De Leon 06/04/2023 1:21 PM Signed Procedure(s) being scheduled: 1.Are you diabetic No [...] Yes 9. Does this procedure require a drop hammer pile driver operator? Yes If yes, has patient been notified that a drop hammer pile driver operator is needed and must be present at [...] 2nd dose of the COVID vaccine.) Jennifer Glez 06/04/2023 1:23 PM Signed Patient would like a prescription for xanax called into pharmacy to take for RFA. Instructed patient to mixing picker tender and bring to appointment as it must be taken under the supervision of our clinical staff. Also instructed patient to arrive 45 minutes early to appointment and that drop hammer pile driver operator must stay for the entirety of the procedure. Routed to Rebekah to send in medication. Rebekah Barrett APRN.CJ 06/04/2023 1:31 PM Signed oarrs was checked- no medication discrepancy or aberrations noted Xanax sent Rebekah Bobo APRN.Lora Loya LPN 06/04/2023 1:40 PM Signed Spoke with patient and updated her. 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 Do not take until instructed by clinical staffDisp: 2 tabletRfl: 0 Prescriptions as of 06/04/2023 - ALPRAZolam 0.5 mg dissolvable tablet Bring to office for procedure. Do not take until instructed by clinical staff - cyclobenzaprine (FLEXERIL) 10 mg tablet Take 1 tablet by mouth three times a day as needed for muscle spasm. - omeprazole (PRILOSEC) 20 mg capsule Take 1 capsule by mouth once daily. - zolpidem (AMBIEN) 10 mg Take 1 tablet by mouth at bedtime as needed for up to 90 days. - gabapentin (NEURONTIN) 300 mg capsule Take 1 capsule by mouth three times a day for 180 days. Take one pill 3 times per day - GEMTESA 75 mg tablet Take 1 tablet by mouth every afternoon. - furosemide (LASIX) 40 mg tablet Take 1 tablet by mouth once daily. - aspirin, enteric coated (ASPIRIN, ENTERIC COATED) 81 mg EC tablet Take 81 mg by mouth once daily. - levothyroxine (LEVOXYL) 125 mcg tablet Take 1 tablet by mouth once daily. Take on empty stomach. For thyroid. - amLODIPine (NORVASC) 5 mg tablet Take by mouth. - tolterodine ER (DETROL LA) 4 mg 24 hr capsule TAKE 1 CAPSULE BY MOUTH ONCE DAILY - acetaminophen (TYLENOL) 500 mg tablet Take 1,000 mg by mouth twice daily. - Diaper,Brief, Adult,Disposable (DEPEND UNDERWEAR FOR WOMEN XL) Use 5/day as needed for urinary incontinence - metoprolol succinate ER (TOPROL XL) 50 mg 24 hr tablet Take by mouth. - Kxcsehvplju-Ljrxdlzox-Hcw C-Mn (GLUCOSAMINE CHONDROITIN MAXSTR) 500-400 mg cap Take 1 capsule by mouth three times daily. - COMPOUNDED PRESCRIPTION Stair lift - DAILY-LUISITO tablet TAKE 1 TABLET BY MOUTH ONCE DAILY. - yeaqvlb-tugbkicuz-lbgurht D3 (CALCIUM 500+D) 500 mg(1,250mg) -200 unit per tablet Take 1 tablet by mouth twice daily with meals. - vitamin b comple (more content not included)... Normal [facility] CNPLuz Maria 05-20-2023 CNPN Telephone (AGSPINE3) MARI LOPEZ ([id number]) 1940 F Date Time Provider Department 05/20/23 ROQUE DELGADO AGSPINE3 During your visit today, we recorded the following information about you: Jorje Nagel LPN 05/20/2023 1:37 PM Signed Spoke with patient following up from procedure. Patient states they are doing well, no questions or concerns at this time. Jorje Nagel LPN Allergies As of Date: 05/20/2023 Noted Allergy Reaction BACTRIM (SULFAMETHOXAZOLE-TRIMETH*0 07/23/2016 4 - Hives Comments: Blisters: head to toe IBUPROFEN 11/08/2015 2 - Rash KEFZOL (CEFAZOLIN SODIUM) 08/09/2018 4 - Hives PEANUT 03/31/2023 10 - Anaphylaxis SULFA (SULFONAMIDE ANTIBIOTICS) 07/23/2016 4 - Hives 16 - Unknown Comments: Blisters: head to toe Date Reviewed: 05/18/2023 Reviewed by: Amada Velasco LPN - Fully Assessed Reason for Visit: Procedure [88] Prescriptions as of 05/20/2023 - cyclobenzaprine (FLEXERIL) 10 mg tablet Take 1 tablet by mouth three times a day as needed for muscle spasm. - benzonatate (TESSALON PERLES) 100 mg capsule Take 2 capsules by mouth three times a day as needed. - omeprazole (PRILOSEC) 20 mg capsule Take 1 capsule by mouth once daily. - zolpidem (AMBIEN) 10 mg Take 1 tablet by mouth at bedtime as needed for up to 90 days. - gabapentin (NEURONTIN) 300 mg capsule Take 1 capsule by mouth three times a day for 180 days. Take one pill 3 times per day - GEMTESA 75 mg tablet Take 1 tablet by mouth every afternoon. - furosemide (LASIX) 40 mg tablet Take 1 tablet by mouth once daily. - aspirin, enteric coated (ASPIRIN, ENTERIC COATED) 81 mg EC tablet Take 81 mg by mouth once daily. - levothyroxine (LEVOXYL) 125 mcg tablet Take 1 tablet by mouth once daily. Take on empty stomach. For thyroid. - amLODIPine (NORVASC) 5 mg tablet Take by mouth. - tolterodine ER (DETROL LA) 4 mg 24 hr capsule TAKE 1 CAPSULE BY MOUTH ONCE DAILY - acetaminophen (TYLENOL) 500 mg tablet Take 1,000 mg by mouth twice daily. - Diaper,Brief, Adult,Disposable (DEPEND UNDERWEAR FOR WOMEN XL) Use 5/day as needed for urinary incontinence - metoprolol succinate ER (TOPROL XL) 50 mg 24 hr tablet Take by mouth. - Gbesdtuqmcm-Hgkqdnndc-Jlt C-Mn (GLUCOSAMINE CHONDROITIN MAXSTR) 500-400 mg cap Take 1 capsule by mouth three times daily. - COMPOUNDED PRESCRIPTION Stair lift - DAILY-LUISITO tablet TAKE 1 TABLET BY MOUTH ONCE DAILY. - yqsnbre-pmompgzsr-fccdxck D3 (CALCIUM 500+D) 500 mg(1,250mg) -200 unit per tablet Take 1 tablet by mouth twice daily with meals. - vitamin b complex (B COMPLETE) tab Take 1 tablet by mouth once daily. - hydrocortisone (ANUSOL-HC) 2.5 % rectal cream 1 application by RECTAL route twice daily. - calcium acetate (PHOSLO) 667 mg capsule TAKE 1 CAPSULE BY MOUTH THREE TIMES DAILY. - Magnesium 200 mg tab Take 200 mg by mouth once daily. - Zinc 50 mg tab Take 1 tablet by mouth once daily. - cholecalciferol (VITAMIN D3) 1,000 unit tab tablet Take 2 tablets by mouth once daily. - senna-docusate (SENNA-S) 8.6-50 mg per tablet Take 1 tablet by mouth once daily. - ascorbic acid(VITAMIN C 500 MG TAB) Take one(1) tablet daily. - VITAMIN E 400 UNIT CAP Take one(1) tablet twice daily. - pyridoxine hcl(VITAMIN B-6 100 MG TAB) Take one(1) tablet daily. - CENTRUM PERFORMANCE TAB Take one(1) tablet daily. Meds Comments as of 10/27/2016: Magnesium, zinc, Glucosamine-chondroitin, Fish-Oil Problem List As Of Date 05/20/2023 Noted Resolved Class 3 severe obesity with body mass index (BM*06/28/2003 BENIGN HYPERTENSION(aka HTN) [I10] 07/21/2003 ASTHMA UNSPECIFIED [J45.909] 07/21/2003 OTHER UNSPEC SLEEP APNEA(aka APNEA) [G47.30] 07/21/2003 Primary osteoarthritis of both knees [M17.0] 07/21/2003 THROMBOPHLEBITIS NOS(aka DVT) [I80.9] 07/21/2003 08/21/2009 PULMON EMBOLISM/INFARCT(aka EMBOLISM) [415.1] 07/21/2003 08/21/2009 VENTRAL HERNIA NEC [K43.9] 03/26/2004 07/01/2007 ASA CLASS III [1003] 05/07/2005 07/12/2021 INJURY TRUNK SITE NEC [OFZ2518] 01/16/2006 07/01/2007 Anemia in chronic kidney disease (CKD) [N18.9, *03/17/2006 Non-Healing Surgical Wound [T81.89XA] 03/16/2007 05/18/2009 FEMALE STRESS INCONTINENCE [N39.3] 07/12/2008 MASS IN SUBCUTANEOUS TISSUE [R22.9] 07/21/2008 08/18/2018 Pain in Joint, Lower Leg [M25.569] 11/14/2008 08/21/2009 Rotator cuff syndrome [M75.100] 02/19/2011 Insomnia [G47.00] 07/30/2011 Screening for colon cancer [Z12.11] 11/24/2016 07/12/2021 Dyspepsia [R10.13] 11/24/2016 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 Hypothyroidism, acquired [E03.9] 04/19/2018 Renal failure [N19] 05/01/2020 Chronic midline low back pain with sciatica [M5*10/16/2021 Lymphedema [I89.0] 11/22/2021 Lumbar spondylosis [M47.816] 12/25/2021 Encounter Status:Closed by JORJE NAGEL on 05/20/23 [facility] US OTHER-INJECTION (POC) DONATO USE ONLYon 05-18-2023 [facility] CNCOon 04-16-2023 CNCO Letter Text [facility] CNOVon 04-16-2023 CNOV Office Visit (SPAGWO ) MARI LOPEZ ([id number]) 1940 F Date Time Provider Department 04/16/23 8:15 AM ROQUE DELGADO SPAGWO During your visit today, we recorded the following information about you: Pulse Respiration Weight 73/minute 16/minute 98.9 kg Roque Delgado MD 04/16/2023 8:43 AM Signed [facility] Today's Date: 04/16/2023 Last visit: 01/15/2023 03/02/2023 Name: Mari Lopez : 1940 Purpose: Follow-up Patient Evaluation - [...] back pain with sciatica, Pertinent Past Surgeries: Tico and new knee cap in right leg (2016), Bilat total knee revisions (2004), Bilat TKA (1990), DH 03/02/2023 - Mari Lopez is a 82 year old female seen for shoulder pain, pain score 1-3/10. She had the bilateral GHJ USI with Dr. Delgado on 02/16/2023 that has helped the pain here by 50%. She is able to do a little more since the injection. She is even sleeping better. She is seeing Dr. Delgado in the near future to discuss possible SPR. PLAN: She is doing well from the steroid injection for the GHJ. We could consider SPR but she would need a diagnostic suprascapular block first. She is going to discuss this further with Dr. Delgado in a few weeks Plan at last visit: Mari Lopez would benefit from the following to decrease [...] current dose Flexeril 10mg TID PRN Functional Scientologist: No changes-continue current regimen Additional Studies: X-ray [...] - Initial HPI (Obtained by Avis Marrufo APRN.DIGITAL DATA ANALYST ). From 03/2022 - She previously inquired [...] for a few days 03/12/22 RFA BL L4/5 (more content not included)... Normal [facility] [place] 04-16-2023 [facility] Telephone (SPAGWO) JOHNMARI Gerry ([id number]) 1940 F Date Time Provider Department 04/16/23 ROQUE DELGADO SPAGWO During your visit today, we recorded the following information about you: Jennifer De Leon 04/16/2023 8:47 AM Signed Procedure(s) being scheduled: 1.Are you diabetic No [...] No 9. Does this procedure require a drop hammer pile driver operator? Yes If yes, has patient been notified that a drop hammer pile driver operator is needed and must be present at check in? yES 10. Were the pre-procedure instructions explained and [...] of the COVID vaccine.) Jennifer De Leon Allergies As of Date: 04/16/2023 Noted Allergy Reaction BACTRIM (SULFAMETHOXAZOLE-TRIMETH*0 07/23/2016 4 - Hives Comments: Blisters: head to toe IBUPROFEN 11/08/2015 2 - Rash KEFZOL (CEFAZOLIN SODIUM) 08/09/2018 4 - Hives PEANUT 03/31/2023 10 - Anaphylaxis SULFA (SULFONAMIDE ANTIBIOTICS) 07/23/2016 4 - Hives 16 - Unknown Comments: Blisters: head to toe Date Reviewed: 04/16/2023 Reviewed by: Kaleigh Rodney MA - Fully Assessed Reason for Visit: Injection Questions [Other] Prescriptions as of 04/16/2023 - cyclobenzaprine (FLEXERIL) 10 mg tablet Take 1 tablet by mouth three times a day as needed for muscle spasm. - benzonatate (TESSALON PERLES) 100 mg capsule Take 2 capsules by mouth three times a day as needed. - omeprazole (PRILOSEC) 20 mg capsule Take 1 capsule by mouth once daily. - azithromycin (ZITHROMAX Z-MADDY) 250 mg tablet Take 2 tablets day one, then, 1 tablet daily until gone. - zolpidem (AMBIEN) 10 mg Take 1 tablet by mouth at bedtime as needed for up to 90 days. - gabapentin (NEURONTIN) 300 mg capsule Take 1 capsule by mouth three times a day for 180 days. Take one pill 3 times per day - GEMTESA 75 mg tablet Take 1 tablet by mouth every afternoon. - furosemide (LASIX) 40 mg tablet Take 1 tablet by mouth once daily. - aspirin, enteric coated (ASPIRIN, ENTERIC COATED) 81 mg EC tablet Take 81 mg by mouth once daily. - levothyroxine (LEVOXYL) 125 mcg tablet Take 1 tablet by mouth once daily. Take on empty stomach. For thyroid. - amLODIPine (NORVASC) 5 mg tablet Take by mouth. - tolterodine ER (DETROL LA) 4 mg 24 hr capsule TAKE 1 CAPSULE BY MOUTH ONCE DAILY - acetaminophen (TYLENOL) 500 mg tablet Take 1,000 mg by mouth twice daily. - Diaper,Brief, Adult,Disposable (DEPEND UNDERWEAR FOR WOMEN XL) Use 5/day as needed for urinary incontinence - metoprolol succinate ER (TOPROL XL) 50 mg 24 hr tablet Take by mouth. - Tppohaprqpq-Fycwvvuyf-Iwi C-Mn (GLUCOSAMINE CHONDROITIN MAXSTR) 500-400 mg cap Take 1 capsule by mouth three times daily. - COMPOUNDED PRESCRIPTION Stair lift - DAILY-LUISITO tablet TAKE 1 TABLET BY MOUTH ONCE DAILY. - ynkvzji-hklmelugd-xqdvmrx D3 (CALCIUM 500+D) 500 mg(1,250mg) -200 unit per tablet Take 1 tablet by mouth twice daily with meals. - vitamin b complex (B COMPLETE) tab Take 1 tablet by mouth once daily. - hydrocortisone (ANUSOL-HC) 2.5 % rectal cream 1 application by RECTAL route twice daily. - calcium acetate (PHOSLO) 667 mg capsule TAKE 1 CAPSULE BY MOUTH THREE TIMES DAILY. - Magnesium 200 mg tab Take 200 mg by mouth once daily. - Zinc 50 mg tab Take 1 tablet by mouth once daily. - cholecalciferol (VITAMIN D3) 1,000 unit tab tablet Take 2 tablets by mouth once daily. - senna-docusate (SENNA-S) 8.6-50 mg per tablet Take 1 tablet by mouth once daily. - ascorbic acid(VITAMIN C 500 MG TAB) Take one(1) tablet daily. - VITAMIN E 400 UNIT CAP Take one(1) tablet twice daily. - pyridoxine hcl(VITAMIN B-6 100 MG TAB) Take one(1) tablet daily. - CENTRUM PERFORMANCE TAB Take one(1) tablet daily. Meds Comments as of 10/27/2016: Magnesium, zinc, Glucosamine-chondroitin (more content not included)... Normal [facility] XR Chest PA and Lateralon IMPRESSION: No acute radiographic abnormality. Steam Frame Operator: CHEIKH Transcribe Date/Time: Mar 31 2023 11:37A Dictated by : JOSHUA BURNETT MD This examination was interpreted and the report reviewed and electronically signed by: JOSHUA BURNETT MD on Mar 31 2023 11:37AM [facility] DIVISION OF RADIOLOGY * * *Final Report* * * DATE OF EXAM: Mar 31 2023 11:34AM WOX [id number] - XR CHEST 2V FRONTAL/LAT / PROCEDURE REASON: Acute cough * * * * Physician Interpretation * * * * EXAMINATION: CHEST RADIOGRAPH (2 VIEW FRONTAL & LATERAL) CLINICAL HISTORY: Acute cough MQ: XC2_6 EXAM DATE/TIME: 03/31/2023 11:34 AM COMPARISON: 08/15/2013 RESULT: Lines, tubes, and devices: None. Lungs and pleura: No consolidation. No lung mass. No pleural effusion. No pneumothorax. Cardiomediastinal silhouette: Normal cardiomediastinal silhouette. Bones and soft tissues: Degenerative changes are present within the thoracic spine. DIVISION OF RADIOLOGY Provider, [facility] - 03/31/2023 * * *Final Report* * * DATE OF EXAM: Mar 31 2023 11:34AM WOX [id number] - XR CHEST 2V FRONTAL/LAT / PROCEDURE REASON: Acute cough * * * * Physician Interpretation * * * * EXAMINATION: CHEST RADIOGRAPH (2 VIEW FRONTAL & LATERAL) CLINICAL HISTORY: Acute cough MQ: XC2_6 EXAM DATE/TIME: 03/31/2023 11:34 AM COMPARISON: 08/15/2013 RESULT: Lines, tubes, and devices: None. Lungs and pleura: No consolidation. No lung mass. No pleural effusion. No pneumothorax. Cardiomediastinal silhouette: Normal cardiomediastinal silhouette. Bones and soft tissues: Degenerative changes are present within the thoracic spine. IMPRESSION IMPRESSION: No acute radiographic abnormality. Steam Frame Operator: CHEIKH Transcribe Date/Time: Mar 31 2023 11:37A Dictated by : JOSHUA BURNETT MD This examination was interpreted and the report reviewed and electronically signed by: JOSHUA BURNETT MD on Mar 31 2023 11:37AM EST [facility] Radiology Study observation (narrative) [place] [facility] XR Chest PA and LateralOrder ed By: Ccf Provider on 03-31-2023 [facility] CNOVon 01-15-2023 CNOV Office Visit (SPAGWO ) MARI LOPEZ ([id number]) 1940 F Date Time Provider Department 01/15/23 8:30 AM ROQUE DELGADOGWOmega During your visit today, we recorded the following information about you: Pulse Respiration 71/minute 18/minute Roque Delgado MD 01/15/2023 8:58 AM Signed [facility] [place] [facility] Name: Mari Lopez : 1940 Purpose: 3-month follow-up Today's Date: 01/15/2023 Last Visit: 10/16/2022 Chief complaint: Thoracic and low back Pain Mari Lopez is an established patient, returning today for [...] Months Years Frequency Intermittent Intermittent Intervention/Comfort measure Medication;Reposition;Relax ation (No Data) Comments - - Pain Assessment [...] the lower lumbar spine. There is a tico in the visualized mid femoral shaft on [...] soft tissues: The paraspinal soft tissues are with (more content not included)... [facility] Telephone (SPAGWO) MARI LOPEZ ([id number]) 1940 F Date Time Provider Department 01/15/23 ROQUE DELGADO SPAClrTouch During your visit today, we recorded the following information about you: Jennifer De Leon 01/15/2023 9:01 AM Signed Procedure(s) being scheduled: 1.Are you diabetic No [...] No 9. Does this procedure require a drop hammer pile driver operator? No If yes, has patient been notified that a drop hammer pile driver operator is needed and must be present at [...] of the COVID vaccine.) Jennifer De Leon Allergies As of Date: 01/15/2023 Noted Allergy Reaction BACTRIM (SULFAMETHOXAZOLE-TRIMETH*0 07/23/2016 4 - Hives Comments: Blisters: head to toe IBUPROFEN 11/08/2015 2 - Rash KEFZOL (CEFAZOLIN SODIUM) 08/09/2018 4 - Hives Peanut Butter [Other] 11/14/2002 Comments: throat swelling, convulsions SULFA (SULFONAMIDE ANTIBIOTICS) 07/23/2016 4 - Hives 16 - Unknown Comments: Blisters: head to toe Date Reviewed: 01/15/2023 Reviewed by: Kerrie Guthrie LPN - Fully Assessed Reason for Visit: Injection Questions [Other] Prescriptions as of 01/15/2023 - acetaminophen (TYLENOL) 500 mg tablet Take 1,000 mg by mouth twice daily. - amLODIPine (NORVASC) 5 mg tablet Take by mouth. - ascorbic acid(VITAMIN C 500 MG TAB) Take one(1) tablet daily. - aspirin, enteric coated (ASPIRIN, ENTERIC COATED) 81 mg EC tablet Take 81 mg by mouth once daily. - calcium acetate (PHOSLO) 667 mg capsule TAKE 1 CAPSULE BY MOUTH THREE TIMES DAILY. - nzndkio-quenpzrhn-efxzpfu D3 (CALCIUM 500+D) 500 mg(1,250mg) -200 unit per tablet Take 1 tablet by mouth twice daily with meals. - CENTRUM PERFORMANCE TAB Take one(1) tablet daily. - cholecalciferol (VITAMIN D3) 1,000 unit tab tablet Take 2 tablets by mouth once daily. - COMPOUNDED PRESCRIPTION Stair lift - cyclobenzaprine (FLEXERIL) 10 mg tablet Take 1 tablet by mouth three times daily as needed for muscle spasm. - DAILY-LUISITO tablet TAKE 1 TABLET BY MOUTH ONCE DAILY. - Diaper,Brief, Adult,Disposable (DEPEND UNDERWEAR FOR WOMEN XL) Use 5/day as needed for urinary incontinence - furosemide (LASIX) 40 mg tablet Take 1 tablet by mouth once daily. - gabapentin (NEURONTIN) 300 mg capsule Take 1 capsule by mouth three times a day for 180 days. Take one pill 3 times per day - GEMTESA 75 mg tablet Take 1 tablet by mouth every afternoon. - Tdoarneaqgx-Eilwstovy-Hrs C-Mn (GLUCOSAMINE CHONDROITIN MAXSTR) 500-400 mg cap Take 1 capsule by mouth three times daily. - hydrocortisone (ANUSOL-HC) 2.5 % rectal cream 1 application by RECTAL route twice daily. - levothyroxine (LEVOXYL) 125 mcg tablet Take 1 tablet by mouth once daily. Take on empty stomach. For thyroid. - Magnesium 200 mg tab Take 200 mg by mouth once daily. - metoprolol succinate ER (TOPROL XL) 50 mg 24 hr tablet Take by mouth. - omeprazole (PRILOSEC) 20 mg capsule TAKE 1 CAPSULE BY MOUTH ONCE DAILY - pyridoxine hcl(VITAMIN B-6 100 MG TAB) Take one(1) tablet daily. - senna-docusate (SENNA-S) 8.6-50 mg per tablet Take 1 tablet by mouth once daily. - tolterodine ER (DETROL LA) 4 mg 24 hr capsule TAKE 1 CAPSULE BY MOUTH ONCE DAILY - vitamin b complex (B COMPLETE) tab Take 1 tablet by mouth once daily. - VITAMIN E 400 UNIT CAP Take one(1) tablet twice daily. - Zinc 50 mg tab Take 1 tablet by mouth once daily. - zolpidem (AMBIEN) 10 mg Take 1 tablet by mouth at bedtime as needed for up to 90 days. Meds Comments as of 10/27/2016: Magnesium, zinc, Glucosamine-chondroitin, Fish-Oil Problem List As Of Date 01/15/2023 Noted Resolved Class 3 severe obesity with body mass index (BM*06/28/2003 BENIGN HYPERTENSION(aka HTN) [I10] 07/21/2003 ASTHMA UNSPEC (more content not included)... Normal [facility] XR SHOULDER LIMITED 2V AP/TR UE AP LEFTon 01-15-2023 [facility] XR SHOULDER [id number] AP/BRENDAN E AP RIGHTon 01-15-2023 [facility] Basophil percentageOrdered B y: Gautam Hardy on 10-15-2022 Basophil percentage 4.2 mg/dL 2.5-4.9 [facility] Chloride [Moles/Vol] 110 mmol/L 98-107 [facility] Glucose [Mass/Vol] 83 mg/dL 74-106 [facility] Potassium [Moles/Vol] 4.2 mmol/L 3.5-5.1 [facility] Sodium [Moles/Vol] 141 mmol/L 136-145 [facility] Laboratory - Chemistry and C hemistry - challengeOrdered By: Gautam Hardy on 10-15-2022 CO2 [Moles/Vol] 25.0 mmol/L 21.0-32.0 [facility] Urea nitrogen/Creatinine [Mass ratio] 25.4 mg/mg 10-20 [facility] No Panel InformationOrdered By: Gautam Hardy on 10-15-2022 Estimated GFR (MDRD) Amer 46 mL/min >60 [facility] Comment on above: GFR Calc Estimated GFR (MDRD) Non-Af Amer 38 mL/min >60 [facility] Comment on above: Non- GFR Calc Serum or plasma albumin farheen urement (mass/volume)Ordered By: Gautam Hardy on 10-15-2022 Albumin [Mass/Vol] 3.1 g/dL 3.2-5.0 [facility] Serum or plasma calcium farheen urement (mass/volume)Ordered By: Gautam Hardy on 10-15-2022 Calcium [Mass/Vol] 8.4 mg/dL 8.5-10.1 [facility] Serum or plasma creatinine m easurement (mass/volume)Ordered By: Gautam Hardy on 10-15-2022 Creatinine [Mass/Vol] 1.42 mg/dL 0.55-1.02 [facility] Comment on above: The validity of the calculated GFR & GFRAA in patients over 70 years has not been determined. Clinical correlation is essential. Serum or plasma urea nitroge n measurement (mass/volume)Ordered By: Gautam Hardy on 10-15-2022 Urea nitrogen [Mass/Vol] 36 mg/dL 7-18 [facility] XR FOOT GENERAL 3V AP/LAT/OB L RIGHTon 07-31-2022 [facility] Absolute lymphocyte countOrd ered By: Dr. Jackson on 07-25-2022 Lymphocytes Auto (Unsp spec) [#/Vol] 1.41 10*3/uL 0.83-4.51 [facility] Basophil percentageOrdered B y: Dr. Jackson on 07-25-2022 Basophils/100 WBC (Bld) 0.8 % 0-1 [facility] Chloride [Moles/Vol] 110 mmol/L 98-107 [facility] Eosinophils/100 WBC (Bld) 3.4 % 0-5 [facility] Glucose [Mass/Vol] 92 mg/dL 74-106 [facility] Neutrophils (Bld) [#/Vol] 4.4 10*3/uL 2.0-7.7 [facility] Neutrophils/100 WBC (Bld) 67.6 % 47-70 [facility] Potassium [Moles/Vol] 4.4 mmol/L 3.5-5.1 [facility] Comment on above: Slight Hemolysis, Re sult may be falsely increased. Sodium [Moles/Vol] 139 mmol/L 136-145 [facility] WBC (Bld) [#/Vol] 6.5 10*3/uL 4.4-11.0 [facility] Blood erythrocytes count (nu mber/volume)Ordered By: Dr. Jackson on 07-25-2022 RBC (Bld) [#/Vol] 3.79 10*6/uL 4.2-5.4 [facility] Blood hemoglobin measurement (mass/volume)Ordered By: Dr. Jackson on 07-25-2022 Hemoglobin (Bld) [Mass/Vol] 12.8 g/dL 12.0-15.0 [facility] Blood lymphocytes/100 leukoc ytesOrdered By: Dr. Jackson on 07-25-2022 Lymphocytes/100 WBC (Bld) 21.7 % 19-41 [facility] Blood monocytes/100 leukocyt esOrdered By: Dr. Jackson on 07-25-2022 Monocytes/100 WBC (Bld) 6.2 % 0-10 [facility] Blood platelet mean volumeOr dered By: Dr. Jackson on 07-25-2022 Platelet mean volume (Bld) [Entitic vol] 12.8 fL 6.2-12.0 [facility] Determination of erythrocyte mean corpuscular volume (MCV)Ordered By: Dr. Jackson on 07-25-2022 MCV (RBC) [Entitic vol] 108.4 fL 81-99 [facility] Hematocrit Auto (Bld) [Volum e fraction]Ordered By: Dr. Jackson on 07-25-2022 Hematocrit (Bld) [Volume fraction] 41.1 % 37-47 [facility] Laboratory - Chemistry and C hemistry - challengeOrdered By: Dr. Jackson on 07-25-2022 CO2 [Moles/Vol] 29.0 mmol/L 21.0-32.0 [facility] Urea nitrogen/Creatinine [Mass ratio] 28.7 mg/mg 10-20 [facility] Laboratory - Hematology and Cell countsOrdered By: Dr. Jackson on 07-25-2022 Erythrocyte distribution width (RBC) [Entitic vol] 51.3 fL 35.1-43.9 [facility] Erythrocyte distribution width (RBC) [Ratio] 12.8 % 11.6-14.6 [facility] Immature granulocytes/100 WBC (Bld) 0.300 % 0.0-0.9 [facility] Comment on above: IG% - Immature Granu locytes (promyelocytes, myelocytes and metamyelocytes) > 1% indicates that a LEFT SHIFT is Present. MCH (RBC) [Entitic mass] 33.8 pg 27.0-32.0 [facility] Nucleated RBC/100 WBC (Bld) [Ratio] 0 % 0-5 [facility] MCHC Auto (RBC) [Mass/Vol]Or dered By: Dr. Jackson on 07-25-2022 MCHC (RBC) [Mass/Vol] 31.1 g/dL 32-36 [facility] No Panel InformationOrdered By: Dr. Jackson on 07-25-2022 Estimated GFR (MDRD) Amer 51 mL/min >60 [facility] Comment on above: GFR Calc Estimated GFR (MDRD) Non-Af Amer 42 mL/min >60 [facility] Comment on above: Non- GFR Calc Platelets bldOrdered By: Dr. Jackson on 07-25-2022 Platelets (Bld) [#/Vol] 219 10*3/uL 150-450 [facility] Serum or plasma calcium farheen urement (mass/volume)Ordered By: Dr. Jackson on 07-25-2022 Calcium [Mass/Vol] 8.8 mg/dL 8.5-10.1 [facility] Serum or plasma creatinine m easurement (mass/volume)Ordered By: Dr. Jackson on 07-25-2022 Creatinine [Mass/Vol] 1.29 mg/dL 0.55-1.02 [facility] Comment on above: The validity of the calculated GFR & GFRAA in patients over 70 years has not been determined. Clinical correlation is essential. Serum or plasma urea nitroge n measurement (mass/volume)Ordered By: Dr. Jackson on 07-25-2022 Urea nitrogen [Mass/Vol] 37 mg/dL 7-18 [facility] Thin prep Papanicolaou smear with manual screeningOrdered By: Dr. Jackson on 07-25-2022 Thin prep Papanicolaou smear with manual screening 0 5-15 [facility] Basophil percentageOrdered B y: Dr. Acosta on 06-11-2022 Chloride [Moles/Vol] 110 mmol/L 98-107 [facility] Glucose [Mass/Vol] 105 mg/dL 74-106 [facility] Comment on above: Fasting Glucose resu lt from 100 to 125 mg/dL suggests IMPAIRED HOMEOSTASIS per A.D.A. criteria. Potassium [Moles/Vol] 4.1 mmol/L 3.5-5.1 [facility] Sodium [Moles/Vol] 142 mmol/L 136-145 [facility] Laboratory - Chemistry and C hemistry - challengeOrdered By: Dr. Acosta on 06-11-2022 CO2 [Moles/Vol] 25.0 mmol/L 21.0-32.0 [facility] Urea nitrogen/Creatinine [Mass ratio] 26.4 mg/mg 10-20 [facility] No Panel InformationOrdered By: Dr. Acosta on 06-11-2022 Estimated GFR (MDRD) Amer 55 mL/min >60 [facility] Comment on above: GFR Calc Estimated GFR (MDRD) Non-Af Amer 46 mL/min >60 [facility] Comment on above: Non- GFR Calc Serum or plasma calcium farheen urement (mass/volume)Ordered By: Dr. Acosta on 06-11-2022 Calcium [Mass/Vol] 8.8 mg/dL 8.5-10.1 [facility] Serum or plasma creatinine m easurement (mass/volume)Ordered By: Dr. Acosta on 06-11-2022 Creatinine [Mass/Vol] 1.21 mg/dL 0.55-1.02 [facility] Comment on above: The validity of the calculated GFR & GFRAA in patients over 70 years has not been determined. Clinical correlation is essential. Serum or plasma urea nitroge n measurement (mass/volume)Ordered By: Dr. Acosta on 06-11-2022 Urea nitrogen [Mass/Vol] 32 mg/dL 7-18 [facility] Thin prep Papanicolaou smear with manual screeningOrdered By: Dr. Acosta on 06-11-2022 Thin prep Papanicolaou smear with manual screening 7 5-15 [facility] Basophil percentageOrdered B y: Dr. Acosta on 05-14-2022 Basophil percentage 2.9 mg/dL 2.5-4.9 [facility] Chloride [Moles/Vol] 111 mmol/L 98-107 [facility] Glucose [Mass/Vol] 117 mg/dL 74-106 [facility] Comment on above: Fasting Glucose resu lt from 100 to 125 mg/dL suggests IMPAIRED HOMEOSTASIS per A.D.A. criteria. Potassium [Moles/Vol] 3.7 mmol/L 3.5-5.1 [facility] Sodium [Moles/Vol] 143 mmol/L 136-145 [facility] Laboratory - Chemistry and C hemistry - challengeOrdered By: Dr. Acosta on 05-14-2022 CO2 [Moles/Vol] 21.0 mmol/L 21.0-32.0 [facility] Urea nitrogen/Creatinine [Mass ratio] 28.0 mg/mg 10-20 [facility] No Panel InformationOrdered By: Dr. Acosta on 05-14-2022 Estimated GFR (MDRD) Amer 39 mL/min >60 [facility] Comment on above: GFR Calc Estimated GFR (MDRD) Non-Af Amer 32 mL/min >60 [facility] Comment on above: Non- GFR Calc Serum or plasma albumin farheen urement (mass/volume)Ordered By: Dr. Acosta on 05-14-2022 Albumin [Mass/Vol] 3.0 g/dL 3.2-5.0 [facility] Serum or plasma calcium farheen urement (mass/volume)Ordered By: Dr. Acosta on 05-14-2022 Calcium [Mass/Vol] 8.8 mg/dL 8.5-10.1 [facility] Serum or plasma creatinine m easurement (mass/volume)Ordered By: Dr. Acosta on 05-14-2022 Creatinine [Mass/Vol] 1.64 mg/dL 0.55-1.02 [facility] Comment on above: The validity of the calculated GFR & GFRAA in patients over 70 years has not been determined. Clinical correlation is essential. Serum or plasma urea nitroge n measurement (mass/volume)Ordered By: Dr. Acosta on 05-14-2022 Urea nitrogen [Mass/Vol] 46 mg/dL 7-18 [facility] No Panel Informationon 05-13 [facility] No Panel Informationon 04-29 [facility] Culture, urineOrdered By: Dr Luis Fernando Acosta on 03-20-2022 Bacteria identified Cx Nom (U) Positive [facility] Basophil percentageOrdered B y: Dr. Acosta on 03-19-2022 Basophil percentage 3.5 mg/dL 2.5-4.9 [facility] Chloride [Moles/Vol] 113 mmol/L 98-107 [facility] Glucose [Mass/Vol] 104 mg/dL 74-106 [facility] Comment on above: Fasting Glucose resu lt from 100 to 125 mg/dL suggests IMPAIRED HOMEOSTASIS per A.D.A. criteria. Potassium [Moles/Vol] 4.6 mmol/L 3.5-5.1 [facility] Comment on above: Slight Hemolysis, Re sult may be falsely increased. Sodium [Moles/Vol] 142 mmol/L 136-145 [facility] Laboratory - Chemistry and C hemistry - challengeOrdered By: Dr. Acosta on 03-19-2022 CO2 [Moles/Vol] 18.0 mmol/L 21.0-32.0 [facility] Urea nitrogen/Creatinine [Mass ratio] 36.2 mg/mg 10-20 [facility] No Panel InformationOrdered By: Dr. Acosta on 03-19-2022 Estimated GFR (MDRD) Amer 47 mL/min >60 [facility] Comment on above: GFR Calc Estimated GFR (MDRD) Non-Af Amer 39 mL/min >60 [facility] Comment on above: Non- GFR Calc Serum or plasma albumin farheen urement (mass/volume)Ordered By: Dr. Acosta on 03-19-2022 Albumin [Mass/Vol] 3.3 g/dL 3.2-5.0 [facility] Serum or plasma calcium farheen urement (mass/volume)Ordered By: Dr. Acosta on 03-19-2022 Calcium [Mass/Vol] 8.8 mg/dL 8.5-10.1 [facility] Serum or plasma creatinine m easurement (mass/volume)Ordered By: Dr. Acosta on 03-19-2022 Creatinine [Mass/Vol] 1.38 mg/dL 0.55-1.02 [facility] Comment on above: The validity of the calculated GFR & GFRAA in patients over 70 years has not been determined. Clinical correlation is essential. Serum or plasma urea nitroge n measurement (mass/volume)Ordered By: Dr. Acosta on 03-19-2022 Urea nitrogen [Mass/Vol] 50 mg/dL 7-18 [facility] Culture, urineOrdered By: Dr Luis Fernando Acosta on 03-08-2022 Bacteria identified Cx Nom (U) Escherichia coli [facility] Basophil percentageOrdered B y: Dr. Jackson on 03-04-2022 Basophil percentage 10-25 SEEN /hpf 0-5 [facility] Basophil percentage 3.7 mg/dL 2.5-4.9 [facility] Bilirubin [Mass/Vol] 0.40 mg/dL 0.20-1.00 [facility] Comment on above: For patients on eltr ombopag therapy, use of Dimension [place] TBIL is not recommended. Chloride [Moles/Vol] 115 mmol/L 98-107 [facility] Cholesterol [Mass/Vol] 162 mg/dL <200 [facility] Comment on above: <200 mg/dL Desirable 200-240 mg/dL Borderline >240 mg/dL High Risk Glucose [Mass/Vol] 102 mg/dL 74-106 [facility] Comment on above: Fasting Glucose resu lt from 100 to 125 mg/dL suggests IMPAIRED HOMEOSTASIS per A.D.A. criteria. Potassium [Moles/Vol] 4.0 mmol/L 3.5-5.1 [facility] Protein [Mass/Vol] 6.8 g/dL 6.4-8.2 [facility] Sodium [Moles/Vol] 145 mmol/L 136-145 [facility] Triglyceride [Mass/Vol] 312 mg/dL <199 [facility] Comment on above: The drugs N-Acetylcy steine and Metamizole may falsely depress this assay.Serum Triglycerides Reference Interval Normal <150 mg/dL Borderline high 150 - 199 mg/dL High 200 - 499 mg/dL Very High > or = 500 mg/dL Bilirubin Test strip Ql (U)O rdered By: Dr. Jackson on 03-04-2022 Bilirubin Ql (U) Negative Negative [facility] Direct bilirubinOrdered By: Dr. Jackson on 03-04-2022 Bilirubin.direct [Mass/Vol] 0.13 mg/dL 0.00-0.30 [facility] Ketones Test strip Ql (U)Ord ered By: Dr. Jackson on 03-04-2022 Ketones Ql (U) Negative Negative [facility] Laboratory - Chemistry and C hemistry - challengeOrdered By: Dr. Jackson on 03-04-2022 ALP [Catalytic activity/Vol] 78 U/L 45-117 [facility] ALT [Catalytic activity/Vol] 25 U/L 13-56 [facility] CO2 [Moles/Vol] 23.0 mmol/L 21.0-32.0 [facility] Globulin (S) [Mass/Vol] 3.8 g/dL 2.2-4.2 [facility] Urea nitrogen/Creatinine [Mass ratio] 26.4 mg/mg 10-20 [facility] Mucus LM Ql (Urine sed)Order ed By: Dr. Jackson on 03-04-2022 Mucus Ql (Urine sed) 0 SEEN /hpf [facility] Nitrite Test strip Ql (U)Ord ered By: Dr. Jackson on 03-04-2022 Nitrite Ql (U) Positive Negative [facility] No Panel InformationOrdered By: Dr. Jackson on 03-04-2022 Estimated GFR (MDRD) Amer 39 mL/min >60 [facility] Comment on above: GFR Calc Estimated GFR (MDRD) Non-Af Amer 32 mL/min >60 [facility] Comment on above: Non- GFR Calc Protein Test strip Ql (U)Ord ered By: Dr. Jackson on 03-04-2022 Protein Ql (U) 15 mg/dl Negative [facility] Serum or plasma albumin farheen urement (mass/volume)Ordered By: Dr. Jackson on 03-04-2022 Albumin [Mass/Vol] 3.0 g/dL 3.2-5.0 [facility] Serum or plasma calcium farheen urement (mass/volume)Ordered By: Dr. Jackson on 03-04-2022 Calcium [Mass/Vol] 8.4 mg/dL 8.5-10.1 [facility] Serum or plasma cholesterol in HDL measurement (mass/volume)Ordered By: Dr. Jackson on 03-04-2022 Cholesterol in HDL [Mass/Vol] 51 mg/dL >40 [facility] Comment on above: The drugs N-Acetylcy steine and Metamizole may falsely depress this assay. Reference Range HDL <40 mg/dL Low HDL Cholesterol HDL >or= 60 mg/dL High HDL Cholesterol Serum or plasma cholesterol in VLDL measurement (mass/volume)Ordered By: Dr. Jackson on 03-04-2022 Cholesterol in VLDL [Mass/Vol] 62 mg/dL 5-40 [facility] Serum or plasma creatinine m easurement (mass/volume)Ordered By: Dr. Jackson on 03-04-2022 Creatinine [Mass/Vol] 1.63 mg/dL 0.55-1.02 [facility] Comment on above: The validity of the calculated GFR & GFRAA in patients over 70 years has not been determined. Clinical correlation is essential. Serum or plasma low density lipoprotein (LDL) cholesterol measurement (mass/volume)Ordered By: Dr. Jackson on 03-04-2022 Cholesterol in LDL [Mass/Vol] 49 mg/dL 0-130 [facility] Serum or plasma urea nitroge n measurement (mass/volume)Ordered By: Dr. Jackson on 03-04-2022 Urea nitrogen [Mass/Vol] 43 mg/dL 7-18 [facility] Squamous epithelial cells de tection in urine sediment by light microscopyOrdered By: Dr. Jackson on 03-04-2022 Epithelial cells.squamous LM Ql (Urine sed) 0-5 SEEN /hpf 5-10 [facility] Thin prep Papanicolaou smear with manual screeningOrdered By: Dr. Jackson on 03-04-2022 Thin prep Papanicolaou smear with manual screening 19 U/L 15-37 [facility] Thin prep Papanicolaou smear with manual screening 7 5-15 [facility] Urine blood detectionOrdered By: Dr. Jackson on 03-04-2022 RBC Ql (U) 25 /ul Negative [facility] RBC Ql (U) 0 SEEN /hpf 0-5 [facility] Urine clarityOrdered By: Dr. Jackson on 03-04-2022 Clarity (U) Sl. Cloudy Clear [facility] Urine color determinationOrd ered By: Dr. Jackson on 03-04-2022 Color (U) Yellow Yellow [facility] Urine glucose detectionOrder ed By: Dr. Jackson on 03-04-2022 Glucose Ql (U) Normal mg/dl Normal [facility] Urine leukocyte esterase det ection by dipstickOrdered By: Dr. Jackson on 03-04-2022 Leukocyte esterase Test strip Ql (U) 500 /ul Negative [facility] Urine pHOrdered By: Dr. Marge castle on 03-04-2022 pH (U) 5.0 [pH] 5.0 - 8.0 [facility] Urine sediment bacteria coun t by microscopy (number/high power field)Ordered By: Dr. Jackson on 03-04-2022 Bacteria LM.HPF (Urine sed) [#/Area] 1 /[HPF] None Seen [facility] Urine specific gravity measu rementOrdered By: Dr. Jackson on 03-04-2022 Specific gravity (U) [Rel density] 1.015 1.002-1.03 0 [facility] Urobilinogen Auto test strip Ql (U)Ordered By: Dr. Jackson on 03-04-2022 Urobilinogen Ql (U) Normal mg/dl Normal [facility] Basophil percentageOrdered B y: Dr. Jackson on 01-28-2022 Chloride [Moles/Vol] 111 mmol/L 98-107 [facility] Glucose [Mass/Vol] 93 mg/dL 74-106 [facility] Potassium [Moles/Vol] 4.2 mmol/L 3.5-5.1 [facility] Sodium [Moles/Vol] 142 mmol/L 136-145 [facility] Laboratory - Chemistry and C hemistry - challengeOrdered By: Dr. Jackson on 01-28-2022 CO2 [Moles/Vol] 25.0 mmol/L 21.0-32.0 [facility] Urea nitrogen/Creatinine [Mass ratio] 30.1 mg/mg 10- [facility] No Panel InformationOrdered By: Dr. Jackson on 01-28-2022 Estimated GFR (MDRD) Amer 48 mL/min >60 [facility] Comment on above: GFR Calc Estimated GFR (MDRD) Non-Af Amer 40 mL/min >60 [facility] Comment on above: Non- GFR Calc Serum or plasma calcium farheen urement (mass/volume)Ordered By: Dr. Jackson on 01-28-2022 Calcium [Mass/Vol] 8.7 mg/dL 8.5-10.1 [facility] Serum or plasma creatinine m easurement (mass/volume)Ordered By: Dr. Jackson on 01-28-2022 Creatinine [Mass/Vol] 1.36 mg/dL 0.55-1.02 [facility] Comment on above: The validity of the calculated GFR & GFRAA in patients over 70 years has not been determined. Clinical correlation is essential. Serum or plasma urea nitroge n measurement (mass/volume)Ordered By: Dr. Jackson on 01-28-2022 Urea nitrogen [Mass/Vol] 41 mg/dL 7-18 [facility] Thin prep Papanicolaou smear with manual screeningOrdered By: Dr. Jackson on 01-28-2022 Thin prep Papanicolaou smear with manual screening 6 5-15 [facility] US ABDOMEN COMPLETEon 2021 [facility] Absolute lymphocyte counton 12-26-2021 Lymphocytes Auto (Unsp spec) [#/Vol] 1.35 10*3/uL 0.83-4.51 [facility] Work Phone: Basophil percentageon 2021 Basophils/100 WBC (Bld) 0.7 % 0-1 [facility] Work Phone: Bilirubin [Mass/Vol] 0.30 mg/dL 0.20-1.00 [facility] Work Phone: Comment on above: For patients on eltr ombopag therapy, use of Dimension [place] TBIL is not recommended. Chloride [Moles/Vol] 112 mmol/L 98-107 [facility] Work Phone: Eosinophils/100 WBC (Bld) 4.3 % 0-5 [facility] Work Phone: Glucose [Mass/Vol] 90 mg/dL 74-106 [facility] Work Phone: Neutrophils (Bld) [#/Vol] 3.9 10*3/uL 2.0-7.7 [facility] Work Phone: Neutrophils/100 WBC (Bld) 64.9 % 47-70 [facility] Work Phone: Potassium [Moles/Vol] 4.2 mmol/L 3.5-5.1 [facility] Work Phone: Protein [Mass/Vol] 6.8 g/dL 6.4-8.2 [facility] Work Phone: Sodium [Moles/Vol] 143 mmol/L 136-145 [facility] Work Phone: WBC (Bld) [#/Vol] 6.0 10*3/uL 4.4-11.0 [facility] Work Phone: Blood erythrocytes count (nu mber/volume)on 12-26-2021 RBC (Bld) [#/Vol] 3.41 10*6/uL 4.2-5.4 [facility] Work Phone: Blood hemoglobin measurement (mass/volume)on 12-26-2021 Hemoglobin (Bld) [Mass/Vol] 11.4 g/dL 12.0-15.0 [facility] Work Phone: Blood lymphocytes/100 leukoc yteson 12-26-2021 Lymphocytes/100 WBC (Bld) 22.4 % 19-41 [facility] Work Phone: Blood monocytes/100 leukocyt eson 12-26-2021 Monocytes/100 WBC (Bld) 7.5 % 0-10 [facility] Work Phone: Blood platelet mean volumeon 12-26-2021 Platelet mean volume (Bld) [Entitic vol] 12.5 fL 6.2-12.0 [facility] Work Phone: Determination of erythrocyte mean corpuscular volume (MCV)on 12-26-2021 MCV (RBC) [Entitic vol] 109.7 fL 81-99 [facility] Work Phone: Hematocrit Auto (Bld) [Volum e fraction]on 12-26-2021 Hematocrit (Bld) [Volume fraction] 37.4 % 37-47 [facility] Work Phone: Laboratory - Chemistry and C hemistry - challengeon 12-26-2021 ALP [Catalytic activity/Vol] 79 U/L 45-117 [facility] Work Phone: ALT [Catalytic activity/Vol] 20 U/L 13-56 [facility] Work Phone: CO2 [Moles/Vol] 26.0 mmol/L 21.0-32.0 [facility] Work Phone: Globulin (S) [Mass/Vol] 3.7 g/dL 2.2-4.2 [facility] Work Phone: Natriuretic peptide B (Bld) [Mass/Vol] 244.1 pg/mL 0-100 [facility] Work Phone: Urea nitrogen/Creatinine [Mass ratio] 29.7 mg/mg 10-20 [facility] Work Phone: Laboratory - Hematology and Cell countson 12-26-2021 Erythrocyte distribution width (RBC) [Entitic vol] 54.6 fL 35.1-43.9 [facility] Work Phone: Erythrocyte distribution width (RBC) [Ratio] 13.4 % 11.6-14.6 [facility] Work Phone: Immature granulocytes/100 WBC (Bld) 0.200 % 0.0-0.9 [facility] Work Phone: Comment on above: IG% - Immature Granu locytes (promyelocytes, myelocytes and metamyelocytes) > 1% indicates that a LEFT SHIFT is Present. MCH (RBC) [Entitic mass] 33.4 pg 27.0-32.0 [facility] Work Phone: Nucleated RBC/100 WBC (Bld) [Ratio] 0 % 0-5 [facility] Work Phone: MCHC Auto (RBC) [Mass/Vol]on 12-26-2021 MCHC (RBC) [Mass/Vol] 30.5 g/dL 32-36 [facility] Work Phone: No Panel Informationon 12-26 CA 125 Antigen 12.5 U/mL 0.0-38.1 [facility] Work Phone: Comment on above: [facility] El ectrochemiluminescence Immunoassay(ECLIA)Values obtained with different assay methods or kits cannotbe used interchangeably. Results cannot be interpreted asabsolute evidence of the presence or absence of malignantdisease.Performed at: [facility] [address] [id number] Director: Kevyn Flannery PhD, Phone: [phone] Estimated GFR (MDRD) Amer 45 mL/min >60 [facility] Work Phone: Comment on above: GFR Calc Estimated GFR (MDRD) Non-Af Amer 37 mL/min >60 [facility] Work Phone: Comment on above: Non- GFR Calc Platelets bldon 12-26-2021 Platelets (Bld) [#/Vol] 211 10*3/uL 150-450 [facility] Work Phone: Serum or plasma albumin farheen urement (mass/volume)on 12-26-2021 Albumin [Mass/Vol] 3.1 g/dL 3.2-5.0 [facility] Work Phone: Serum or plasma albumin/glob ulin mass ratioon 12-26-2021 Albumin/Globulin [Mass ratio] 0.8 {ratio} 0.9-2.4 [facility] Work Phone: Serum or plasma calcium farheen urement (mass/volume)on 12-26-2021 Calcium [Mass/Vol] 8.7 mg/dL 8.5-10.1 [facility] Work Phone: Serum or plasma creatinine m easurement (mass/volume)on 12-26-2021 Creatinine [Mass/Vol] 1.45 mg/dL 0.55-1.02 [facility] Work Phone: Comment on above: The validity of the calculated GFR & GFRAA in patients over 70 years has not been determined. Clinical correlation is essential. Serum or plasma urea nitroge n measurement (mass/volume)on 12-26-2021 Urea nitrogen [Mass/Vol] 43 mg/dL 7-18 [facility] Work Phone: Thin prep Papanicolaou smear with manual screeningon 12-26-2021 Thin prep Papanicolaou smear with manual screening 14 U/L 15-37 [facility] Work Phone: Thin prep Papanicolaou smear with manual screening 5 5-15 [facility] Work Phone: Basophil percentageon 2021 Chloride [Moles/Vol] 115 mmol/L 98-107 [facility] Work Phone: Glucose [Mass/Vol] 130 mg/dL 74-106 [facility] Work Phone: Comment on above: Fasting Glucose resu lt greater than or equal to 126 mg/dL suggests DIABETES MELLITUS per A.D.A. criteria. Potassium [Moles/Vol] 4.7 mmol/L 3.5-5.1 [facility] Work Phone: Comment on above: Moderate Hemolysis, Result may be falsely increased. Sodium [Moles/Vol] 144 mmol/L 136-145 [facility] Work Phone: Laboratory - Chemistry and C hemistry - challengeon 09-17-2021 CO2 [Moles/Vol] 22.0 mmol/L 21.0-32.0 [facility] Work Phone: Urea nitrogen/Creatinine [Mass ratio] 29.3 mg/mg 10-20 [facility] Work Phone: No Panel Informationon 09-17 Estimated GFR (MDRD) Amer 47 mL/min >60 [facility] Work Phone: Comment on above: GFR Calc Estimated GFR (MDRD) Non-Af Amer 39 mL/min >60 [facility] Work Phone: Comment on above: Non- GFR Calc Serum or plasma calcium farheen urement (mass/volume)on 09-17-2021 Calcium [Mass/Vol] 8.1 mg/dL 8.5-10.1 [facility] Work Phone: Serum or plasma creatinine m easurement (mass/volume)on 09-17-2021 Creatinine [Mass/Vol] 1.40 mg/dL 0.55-1.02 [facility] Work Phone: Comment on above: The validity of the calculated GFR & GFRAA in patients over 70 years has not been determined. Clinical correlation is essential. Serum or plasma urea nitroge n measurement (mass/volume)on 09-17-2021 Urea nitrogen [Mass/Vol] 41 mg/dL 7-18 [facility] Work Phone: Thin prep Papanicolaou smear with manual screeningon 09-17-2021 Thin prep Papanicolaou smear with manual screening 7 5-15 [facility] Work Phone: Basophil percentageon 2021 Chloride [Moles/Vol] 113 mmol/L 98-107 [facility] Work Phone: Glucose [Mass/Vol] 96 mg/dL 74-106 [facility] Work Phone: Potassium [Moles/Vol] 4.6 mmol/L 3.5-5.1 [facility] Work Phone: Sodium [Moles/Vol] 142 mmol/L 136-145 [facility] Work Phone: Laboratory - Chemistry and C hemistry - challengeon 08-29-2021 CO2 [Moles/Vol] 21.0 mmol/L 21.0-32.0 [facility] Work Phone: Urea nitrogen/Creatinine [Mass ratio] 36.8 mg/mg 10-20 [facility] Work Phone: No Panel Informationon 08-29 Estimated GFR (MDRD) Amer 37 mL/min >60 [facility] Work Phone: Comment on above: GFR Calc Estimated GFR (MDRD) Non-Af Amer 31 mL/min >60 [facility] Work Phone: Comment on above: Non- GFR Calc Serum or plasma calcium farheen urement (mass/volume)on 08-29-2021 Calcium [Mass/Vol] 8.6 mg/dL 8.5-10.1 [facility] Work Phone: Serum or plasma creatinine m easurement (mass/volume)on 08-29-2021 Creatinine [Mass/Vol] 1.71 mg/dL 0.55-1.02 [facility] Work Phone: Comment on above: The validity of the calculated GFR & GFRAA in patients over 70 years has not been determined. Clinical correlation is essential. Serum or plasma urea nitroge n measurement (mass/volume)on 08-29-2021 Urea nitrogen [Mass/Vol] 63 mg/dL 7-18 [facility] Work Phone: Thin prep Papanicolaou smear with manual screeningon 08-29-2021 Thin prep Papanicolaou smear with manual screening 8 5-15 [facility] Work Phone: Laboratory - Chemistry and C hemistry - challengeon 08-06-2021 Natriuretic peptide B (Bld) [Mass/Vol] 66.7 pg/mL 0-100 [facility] Work Phone: CT ABD/PEL WO IVCONon 2021 [facility] CBC W Auto Differential pane l (Bld)on 07-16-2021 Abs Immature Gran 0.03 k/uL <0.10 k/uL [facility] Basophils (Bld) [#/Vol] 0.07 10*3/uL <0.11 k/uL [facility] Basophils/100 WBC (Bld) 1.0 % [facility] Differential cell count method Nom (Bld) Auto [facility] Eosinophils (Bld) [#/Vol] 0.29 10*3/uL <0.46 k/uL [facility] Eosinophils/100 WBC (Bld) 4.2 % [facility] Erythrocyte distribution width (RBC) [Ratio] 12.8 % 11.5 - 15.0 % [facility] Hematocrit (Bld) [Volume fraction] 37.9 % 36.0 - 46.0 % [facility] Hemoglobin (Bld) [Mass/Vol] 11.8 g/dL 11.5 - 15.5 g/dL [facility] Immature Gran % 0.4 % [facility] Lymphocytes (Bld) [#/Vol] 2.20 10*3/uL 1.00 - 4.00 k/uL [facility] Lymphocytes/100 WBC (Bld) 32.0 % [facility] MCH (RBC) [Entitic mass] 34.0 pg 26.0 - 34.0 pg [facility] MCHC (RBC) [Mass/Vol] 31.1 g/dL 30.5 - 36.0 g/dL [facility] MCV (RBC) [Entitic vol] 109.2 fL High 80.0 - 100.0 fL [facility] Monocytes (Bld) [#/Vol] 0.54 10*3/uL <0.87 k/uL [facility] Monocytes/100 WBC (Bld) 7.9 % [facility] Neutrophils (Bld) [#/Vol] 3.74 10*3/uL 1.45 - 7.50 k/uL [facility] Neutrophils/100 WBC (Bld) 54.5 % [facility] Nucleated RBC (Bld) [#/Vol] 10*3/uL <0.01 k/uL [facility] Nucleated RBC/100 WBC (Bld) [Ratio] 0.0 /100 WBC [facility] Platelet mean volume (Bld) [Entitic vol] 12.6 fL 9.0 - 12.7 fL [facility] Platelets (Bld) [#/Vol] 232 10*3/uL 150 - 400 k/uL [facility] RBC (Bld) [#/Vol] 3.47 10*6/uL Low 3.90 - 5.20 m/uL [facility] WBC (Bld) [#/Vol] 6.87 10*3/uL 3.70 - 11.00 k/uL [facility] Comprehensive metabolic 2000 panelon 07-16-2021 Albumin [Mass/Vol] 3.9 g/dL 3.9 - 4.9 g/dL [facility] ALP [Catalytic activity/Vol] 64 U/L 34 - 123 U/L [facility] ALT [Catalytic activity/Vol] 13 U/L 7 - 38 U/L [facility] Anion gap [Moles/Vol] 11 mmol/L 9 - 18 mmol/L [facility] AST [Catalytic activity/Vol] 22 U/L 13 - 35 U/L [facility] Bilirubin [Mass/Vol] 0.3 mg/dL 0.2 - 1 .3 mg/dL [facility] Calcium [Mass/Vol] 8.9 mg/dL 8.5 - 10. 2 mg/dL [facility] Chloride [Moles/Vol] 110 mmol/L High 97 - 10 5 mmol/L [facility] CO2 [Moles/Vol] 19 mmol/L Low 22 - 30 mmol/L [facility] Creatinine [Mass/Vol] 1.72 mg/dL High 0.58 - 0.96 mg/dL [facility] Estimated Glomerular Filtration Rate 30 mL/min/1.73m Low >=60 mL/min/1.7 3m [facility] Glucose [Mass/Vol] 77 mg/dL 74 - 99 mg/dL [facility] Potassium [Moles/Vol] 4.4 mmol/L 3.7 - 5.1 mmol/L [facility] Protein [Mass/Vol] 6.8 g/dL 6.3 - 8.0 g/dL [facility] Sodium [Moles/Vol] 140 mmol/L 136 - 144 mmol/L [facility] Urea nitrogen [Mass/Vol] 63 mg/dL High 7 - 21 mg/dL [facility] TSH BLDon 07-16-2021 TSH Qn 3.480 m[IU]/L 0.270 - 4.200 mIU/L [facility] XR RIBS/CHEST 3V AP RIB/OBLS /CXR LEFTon 07-16-2021 [facility] XR Ribs - left Views and Birdie st PAon 07-16-2021 IMPRESSION: Negative ribs. Steam Frame Operator: CHEIKH Transcribe Date/Time: Jul 16 2021 2:18P Dictated by : ADELA MILNER MD This examination was interpreted and the report reviewed and electronically signed by: ADELA MILNER MD on Jul 16 2021 2:25PM EST [email or web address]_NOT_ USE_DIVISIO N OF RADIOLOGY * * *Final Report* * * DATE OF EXAM: Jul 16 2021 10:32AM WOX [id number] - XR RIB/CHST 3V AP RIB/OBL/CHST L / PROCEDURE REASON: multiple diagnoses * * * * Physician Interpretation * * * * EXAMINATION: XR RIB/CHST 3V AP RIB/OBL/CHST L HISTORY: Left posterior lower rib pain x 8 weeks without injury. SOB (shortness of breath). TECHNIQUE: XR RIB/CHST 3V AP RIB/OBL/CHST L Laterality: LEFT Number of different views (projections): 3 M: XB_1 COMPARISON: Comparison is made to prior chest radiograph dated 08/15/2013 and 12 September 2010. RESULT: Frontal radiograph of the chest and dedicated views of the left ribs show no evidence of pneumothorax, hemothorax or pulmonary contusion. The visualized bony structures are intact without apparent displaced or nondisplaced rib fracture. ZZZ_DO_NOT_ USE_DIVISIO N OF RADIOLOGY Provider, Caitlin Valenzuela [facility] - 07/16/2021 * * *Final Report* * * DATE OF EXAM: Jul 16 2021 10:32AM WOX [id number] - XR RIB/CHST 3V AP RIB/OBL/CHST L / PROCEDURE REASON: multiple diagnoses * * * * Physician Interpretation * * * * EXAMINATION: XR RIB/CHST 3V AP RIB/OBL/CHST L HISTORY: Left posterior lower rib pain x 8 weeks without injury. SOB (shortness of breath). TECHNIQUE: XR RIB/CHST 3V AP RIB/OBL/CHST L Laterality: LEFT Number of different views (projections): 3 M: XB_1 COMPARISON: Comparison is made to prior chest radiograph dated 08/15/2013 and 12 September 2010. RESULT: Frontal radiograph of the chest and dedicated views of the left ribs show no evidence of pneumothorax, hemothorax or pulmonary contusion. The visualized bony structures are intact without apparent displaced or nondisplaced rib fracture. IMPRESSION IMPRESSION: Negative ribs. Steam Frame Operator: PSCB Transcribe Date/Time: Jul 16 2021 2:18P Dictated by : ADELA MILNER MD This examination was interpreted and the report reviewed and electronically signed by: ADELA MILNER MD on Jul 16 2021 2:25PM EST [facility] Radiology Study observation (narrative) [facility] XR Ribs - left Views and Birdie st PAOrdered By: [facility] Provider on 07-16-2021 [facility] Culture, urine Bacteria identified Cx Nom (U) Escherichia coli [facility] Work Phone: Bacteria identified Cx Nom (U) Positive [facility] Work Phone: Vital Signs Date Time Vital Sign Value Performing Clinician Radha haas 09-28-2024 21:36-0400 Body temperature 97.9 [degF] Miryam Orozco [employer]SEK[employer]PER [employer] Work Phone: [facility] 09-28-2024 21:36-0400 Diastolic blood pressure 73 mm[Hg] Miryam Orozco [employer] Work Phone: 6(228)003-991463 [place] [address] 09-28-2024 21:36-0400 Heart rate 95 /min Miryam Orozco [employer] Work Phone: 5(974)[phone] [place] [address] 09-28-2024 21:36-0400 Respiratory rate 22 /min Miryam Orozco [employer] Work Phone: 8(457)[phone] [place] [address] 09-28-2024 21:36-0400 SaO2% (BldA) [Mass fraction] 98 % Miryam Serraf [employer] Work Phone: 1(520)[phone] [place] [address] 09-28-2024 21:36-0400 Systolic blood pressure 141 mm[Hg] Miryam Orozco [employer] Work Phone: 1(549)[phone] [place] [address] 09-28-2024 21:32-0400 Body mass index (BMI) [Ratio] 46.1 kg/m2 Miryam Orozco [employer] Work Phone: 5([phone])[phone] [place] [address] 09-28-2024 21:32-0400 Body weight 114.4 kg Miryam Orozco [employer] Work Phone: 3([phone])[phone] [place] [address] 09-28-2024 13:11-0400 Body height 157.48 cm Miryam Orozco [employer] Work Phone: 2(104)[phone] [place] [address] 09-22-2024 14:18-0400 Body mass index (BMI) [Ratio] 43.63 kg/m2 Lizy Capone MD Work Phone: [facility] 09-22-2024 14:18-0400 Body weight 108.2 kg Lizy Capone MD Work Phone: [facility] 09-22-2024 14:18-0400 Diastolic blood pressure 72 mm[Hg] Lizy Capone MD Work Phone: [facility] 09-22-2024 14:18-0400 Heart rate 120 /min Lizy Capone MD Work Phone: [facility] 09-22-2024 14:18-0400 Respiratory rate 18 /min Lizy Capone MD Work Phone: [facility] 09-22-2024 14:18-0400 SaO2% (BldA) [Mass fraction] 98 % Lizy Capone MD Work Phone: [facility] 09-22-2024 14:18-0400 Systolic blood pressure 122 mm[Hg] Lizy Capone MD Work Phone: [facility] 09-19-2024 14:22-0400 Body temperature 98.1 [degF] Miryam Serraf [employer] Work Phone: [facility] 09-19-2024 14:22-0400 Diastolic blood pressure 78 mm[Hg] Miryam Kimballhof [employer] Work Phone: [facility] 09-19-2024 14:22-0400 Heart rate 72 /min Miryampoonam Serraf [employer]SEKEEPER [employer] Work Phone: [facility] 09-19-2024 14:22-0400 Respiratory rate 18 /min Miryam Serraf [employer] Work Phone: [facility] 09-19-2024 14:22-0400 Systolic blood pressure 138 mm[Hg] Miryam Kimballhof [employer] Work Phone: [facility] 09-15-2024 13:29-0400 Body mass index (BMI) [Ratio] 42.62 kg/m2 Michael Carter APRN.DIGITAL DATA ANALYST Work Phone: [facility] 09-15-2024 13:29-0400 Body weight 105.69 kg Michael Carter APRN.DIGITAL DATA ANALYST Work Phone: [facility] 09-15-2024 13:29-0400 Diastolic blood pressure 67 mm[Hg] Michael Carter APRN.DIGITAL DATA ANALYST Work Phone: [facility] 09-15-2024 13:29-0400 Heart rate 72 /min Michael Carter APRN.DIGITAL DATA ANALYST Work Phone: [facility] 09-15-2024 13:29-0400 SaO2% (BldA) [Mass fraction] 95 % Michael Carter APRN.DIGITAL DATA ANALYST Work Phone: [facility] 09-15-2024 13:29-0400 Systolic blood pressure 112 mm[Hg] Michael Vandana LEBRONDIGITAL DATA ANALYST Work Phone: [facility] 09-06-2024 10:30-0400 Body temperature 99.4 [degF] Miryam Jigarhof [employer] Work Phone: 7(273)[phone] [place] [address] 09-06-2024 10:30-0400 Diastolic blood pressure 78 mm[Hg] Miryam Jigarhof [employer] Work Phone: 1(871)902-771163 [place] [address] 09-06-2024 10:30-0400 Heart rate 64 /min Miryam Jigarhof [employer] Work Phone: 9(596)555-351463 [place] [address] 09-06-2024 10:30-0400 Respiratory rate 16 /min Miryampoonam Kimballhof [employer] Work Phone: 3(539)[phone] [place] [address] 09-06-2024 10:30-0400 SaO2% (BldA) [Mass fraction] 100 % Miryam Jigarhof [employer] Work Phone: 2(696)404-338163 [place] [address] 09-06-2024 10:30-0400 Systolic blood pressure 135 mm[Hg] Miryam Jigarhof [employer] Work Phone: 1(646)112-754563 [place] [address] 09-06-2024 08:12-0400 Body height 149.86 cm Miryampoonam Kimballhof [employer]SEKEE[employer] Work Phone: 1([phone])267-411063 [place] [address] 09-06-2024 08:12-0400 Body mass index (BMI) [Ratio] 47 kg/m2 Miryam Jigarhof [employer] Work Phone: 3(502)463-537163 [place] [address] 09-06-2024 08:12-0400 Body weight 105.68 kg Miryam Jigarhof [employer] Work Phone: 7([phone])[phone] [place] [address] 09-05-2024 08:37-0400 Body height 149.86 cm Miryam Tannhof [employer]KEE[employer] Work Phone: 8(744)[phone] [address] 09-05-2024 08:37-0400 Body mass index (BMI) [Ratio] 47 kg/m2 Miryam Jigarhof [employer]SEKEEPER [employer] Work Phone: [facility] 09-05-2024 08:37-0400 Body temperature 98 [degF] Miryam Serraf [employer]SEKEEPER [employer] Work Phone: [facility] 09-05-2024 08:37-0400 Body weight 105.68 kg Miryam Kimballhof [employer]SEKEEPER [employer] Work Phone: [facility] 09-05-2024 08:37-0400 Diastolic blood pressure 72 mm[Hg] Miryam Kimballhof [employer] Work Phone: 0(425)[phone] [place] [address] 09-05-2024 08:37-0400 Heart rate 78 /min Miryam Serraf [employer] Work Phone: 4([phone])[phone] [place] [address] 09-05-2024 08:37-0400 Respiratory rate 16 /min Miryam Kimballhof [employer] Work Phone: 3(604)735-352463 [place] [address] 09-05-2024 08:37-0400 SaO2% (BldA) [Mass fraction] 96 % Miryam Kimballhof [employer] Work Phone: 3([phone])727-827563 [place] [address] 09-05-2024 08:37-0400 Systolic blood pressure 128 mm[Hg] Miryam Serraf [employer]KEE[employer] Work Phone: 9(094)704-139963 [place] [address] 09-04-2024 14:37-0400 Body mass index (BMI) [Ratio] 42.62 kg/m2 Deacon Moomaw MARKET MANAGER.DIGITAL DATA ANALYST Work Phone: [facility] 09-04-2024 14:37-0400 Body temperature 98.49 [degF] Deacon Moomaw MARKET MANAGER.DIGITAL DATA ANALYST Work Phone: [facility] 09-04-2024 14:37-0400 Body weight 105.69 kg Deacon Moomaw MARKET MANAGER.DIGITAL DATA ANALYST Work Phone: [facility] 09-04-2024 14:37-0400 Diastolic blood pressure 76 mm[Hg] Deacon Moomaw MARKET MANAGER.DIGITAL DATA ANALYST Work Phone: [facility] 09-04-2024 14:37-0400 Heart rate 74 /min Deacon Moomaw MARKET MANAGER.DIGITAL DATA ANALYST Work Phone: [facility] 09-04-2024 14:37-0400 Respiratory rate 18 /min Deacon Moomaw MARKET MANAGER.DIGITAL DATA ANALYST Work Phone: [facility] 09-04-2024 14:37-0400 SaO2% (BldA) [Mass fraction] 95 % Deacon Moomaw MARKET MANAGER.DIGITAL DATA ANALYST Work Phone: [facility] 09-04-2024 14:37-0400 Systolic blood pressure 128 mm[Hg] Deacon Moomaw MARKET MANAGER.DIGITAL DATA ANALYST Work Phone: [facility] 09-01-2024 14:39-0400 Body temperature 96.8 [degF] Miryam Jigarhof HOUSEKEEPER [employer] Work Phone: [facility] 09-01-2024 14:39-0400 Diastolic blood pressure 68 mm[Hg] Miryam Jigarhof HOUSEKEEPER [employer] Work Phone: [facility] 09-01-2024 14:39-0400 Heart rate 75 /min Miryam Jigarhof [employer] Work Phone: [facility] 09-01-2024 14:39-0400 Respiratory rate 18 /min Miryampoonam Kimballhof HOUSEKEEPER [employer]C Work Phone: [facility] 09-01-2024 14:39-0400 Systolic blood pressure 147 mm[Hg] Miryampoonam Kimballhof HOUSEKEEPER [employer]NY[employer]C Work Phone: [facility] 08-22-2024 13:20-0400 Body mass index (BMI) [Ratio] 42.62 kg/m2 Lizy Capone MD Work Phone: [facility] 08-22-2024 13:20-0400 Body weight 105.69 kg Lizy Capone MD Work Phone: [facility] 08-22-2024 13:20-0400 Diastolic blood pressure 72 mm[Hg] Lizy Capone MD Work Phone: [facility] 08-22-2024 13:20-0400 Heart rate 61 /min Lizy Capone MD Work Phone: [facility] 08-22-2024 13:20-0400 Respiratory rate 18 /min Lizy Capone MD Work Phone: [facility] 08-22-2024 13:20-0400 SaO2% (BldA) [Mass fraction] 95 % Lizy Capone MD Work Phone: [facility] 08-22-2024 13:20-0400 Systolic blood pressure 124 mm[Hg] Lizy Capone MD Work Phone: [facility] 07-29-2024 15:43-0400 Body temperature 98.1 [degF] Miryampoonam Kimballhof HOUSEKEEPER [employer] Work Phone: [facility] 07-29-2024 15:43-0400 Diastolic blood pressure 76 mm[Hg] Miryam Jigarhof [employer]SEKEEPER [employer] Work Phone: 7(715)263-745063 [place] [address] 07-29-2024 15:43-0400 Heart rate 70 /min Miryampoonam Kimballhof HOUSEKEEPER [employer] Work Phone: 3(605)988-165263 [place] [address] 07-29-2024 15:43-0400 Respiratory rate 18 /min Miryam Jigarhof HOUSEKEEPER [employer] Work Phone: 0(417)741-219363 [place] [address] 07-29-2024 15:43-0400 SaO2% (BldA) [Mass fraction] 99 % Miryam Jigarhof HOUSEKEEPER [employer] Work Phone: 2(052)191-401963 [place] [address] 07-29-2024 15:43-0400 Systolic blood pressure 177 mm[Hg] Miryam Kimballhof HOUSEKEEPER [employer] Work Phone: 7(672)079-520463 [place] [address] 07-29-2024 14:53-0400 Body height 154.94 cm Miryampoonam Kimballhof HOUSEKEEPER [employer] Work Phone: 6(153)658-183863 [place] [address] 07-29-2024 14:53-0400 Body mass index (BMI) [Ratio] 37.8 kg/m2 Miryampoonam Kimballhof HOUSEKEEPER [employer] Work Phone: 0(843)358-186863 [place] [address] 07-29-2024 14:53-0400 Body weight 90.8 kg Miryam Serraf HOUSEKEEPER [employer] Work Phone: 9(469)[phone] [address] 06-10-2024 17:29-0500 Body temperature 97.9 [degF] Miryam Serraf HOUSEKEEPER [employer] Work Phone: 5(192)[phone] [place] [address] 06-10-2024 17:29-0500 Diastolic blood pressure 60 mm[Hg] Miryampoonam Kimballhof HOUSEKEEPER [employer] Work Phone: 6(065)579-881108 [place] [address] 06-10-2024 17:29-0500 Heart rate 74 /min Miryam Serraf HOUSEKEEPER [employer] Work Phone: 7(087)[phone] [place] [address] 06-10-2024 17:29-0500 Respiratory rate 16 /min Miryam Kimballhof HOUSEKEEPER [employer] Work Phone: 6(971)[phone] [place] [address] 06-10-2024 17:29-0500 SaO2% (BldA) [Mass fraction] 99 % Miryam Serraf HOUSEKEEPER [employer] Work Phone: 5(554)889-165408 [place] [address] 06-10-2024 17:29-0500 Systolic blood pressure 122 mm[Hg] Miryam Serraf HOUSEKEEPER [employer] Work Phone: 8(520)558-336908 [place] [address] 06-08-2024 07:41-0500 Body mass index (BMI) [Ratio] 44.2 kg/m2 Miryam Serraf HOUSEKEEPER [employer] Work Phone: 2(221)737-285908 [place] [address] 06-08-2024 07:41-0500 Body weight 99.4 kg Miryam Serraf HOUSEKEEPER [employer] Work Phone: 5(644)[phone] [place] [address] 06-01-2024 15:07-0500 Body height 149.86 cm Miryam Serraf HOUSEKEEPER [employer] Work Phone: 6(969)[phone] [place] [address] 05-18-2024 15:18-0500 Body temperature 97.9 [degF] Kindra Gannon MD Work Phone: [facility] 05-18-2024 15:18-0500 Diastolic blood pressure 58 mm[Hg] Kindra Gannon MD Work Phone: [facility] 05-18-2024 15:18-0500 Heart rate 68 /min Kindra Gannon MD Work Phone: [facility] 05-18-2024 15:18-0500 Respiratory rate 16 /min Kindra Gannon MD Work Phone: [facility] 05-18-2024 15:18-0500 SaO2% (BldA) [Mass fraction] 95 % Kindra Gannon MD Work Phone: [facility] 05-18-2024 15:18-0500 Systolic blood pressure 111 mm[Hg] Kindra Gannon MD Work Phone: [facility] 05-18-2024 06:00-0500 Body mass index (BMI) [Ratio] 39.13 kg/m2 Kindra Gannon MD Work Phone: [facility] 05-18-2024 06:00-0500 Body weight 106.65 kg Kindra Gannon MD Work Phone: [facility] 05-11-2024 15:06-0500 Body height 165.1 cm Kindra Gannon MD Work Phone: [facility] 05-04-2024 19:00-0500 Body temperature 99.8 [degF] Miryam Orozco HOUSEKEEPER [employer] Work Phone: [facility] 05-04-2024 19:00-0500 Diastolic blood pressure 57 mm[Hg] Miryam Orozco HOUSEKEEPER [employer] Work Phone: [facility] 05-04-2024 19:00-0500 Heart rate 68 /min Miryam Orozco HOUSEKEEPER [employer] Work Phone: [facility] 05-04-2024 19:00-0500 Inhaled oxygen concentration 25 % Miryam Orozco HOUSEKEEPER [employer] Work Phone: [facility] 05-04-2024 19:00-0500 Respiratory rate 14 /min Miryam Orozco HOUSEKEEPER [employer] Work Phone: [facility] 05-04-2024 19:00-0500 SaO2% (BldA) [Mass fraction] 98 % Miryam Tannhof HOUSEKEEPER [employer] Work Phone: [facility] 05-04-2024 19:00-0500 Systolic blood pressure 107 mm[Hg] Miryam Tannhof HOUSEKEEPER [employer] Work Phone: [facility] 05-04-2024 14:50-0500 Body mass index (BMI) [Ratio] 49.8 kg/m2 Miryam Tannhof HOUSEKEEPER [employer] Work Phone: [facility] 05-04-2024 14:50-0500 Body weight 115 kg Miryam Tannhof HOUSEKEEPER [employer] Work Phone: [facility] 01-28-2024 08:55-0400 Body mass index (BMI) [Ratio] 41.88 kg/m2 Miryam Tannhof MARKET MANAGER.DIGITAL DATA ANALYST Work Phone: [facility] 01-28-2024 08:55-0400 Body weight 103.87 kg Miryam Tannhof MARKET MANAGER.DIGITAL DATA ANALYST Work Phone: [facility] 01-28-2024 08:55-0400 Diastolic blood pressure 60 mm[Hg] Miryam Tannhof MARKET MANAGER.DIGITAL DATA ANALYST Work Phone: [facility] 01-28-2024 08:55-0400 Heart rate 77 /min Miryam Jigarhof MARKET MANAGER.DIGITAL DATA ANALYST Work Phone: [facility] 01-28-2024 08:55-0400 Respiratory rate 16 /min Miryam Tannhof MARKET MANAGER.DIGITAL DATA ANALYST Work Phone: [facility] 01-28-2024 08:55-0400 SaO2% (BldA) [Mass fraction] 96 % Miryam Tannhof MARKET MANAGER.DIGITAL DATA ANALYST Work Phone: [facility] 01-28-2024 08:55-0400 Systolic blood pressure 122 mm[Hg] Miryam Tannhof MARKET MANAGER.DIGITAL DATA ANALYST Work Phone: [facility] 12-17-2023 08:53-0400 Heart rate 71 /min Roque Delgado MD Work Phone: [facility] 12-17-2023 08:53-0400 Respiratory rate 14 /min Roque Delgado MD Work Phone: [facility] 12-17-2023 08:53-0400 SaO2% (BldA) [Mass fraction] 99 % Roque Delgado MD Work Phone: [facility] 12-04-2023 08:03-0400 Body mass index (BMI) [Ratio] 40.79 kg/m2 Starr Marques MD Work Phone: [facility] 12-04-2023 08:03-0400 Body weight 101.15 kg Starr Marques MD Work Phone: [facility] 12-04-2023 08:03-0400 Diastolic blood pressure 60 mm[Hg] Starr Marques MD Work Phone: [facility] 12-04-2023 08:03-0400 Systolic blood pressure 108 mm[Hg] Starr Marques MD Work Phone: [facility] 11-16-2023 10:58-0400 Diastolic blood pressure 57 mm[Hg] Roque Delgado MD Work Phone: [facility] 11-16-2023 10:58-0400 Heart rate 71 /min Roque Delgado MD Work Phone: [facility] 11-16-2023 10:58-0400 Respiratory rate 17 /min Roque Delgado MD Work Phone: [facility] 11-16-2023 10:58-0400 SaO2% (BldA) [Mass fraction] 97 % Roque Delgado MD Work Phone: [facility] 11-16-2023 10:58-0400 Systolic blood pressure 109 mm[Hg] Roque Delgado MD Work Phone: [facility] 11-09-2023 09:17-0400 Body mass index (BMI) [Ratio] 39.92 kg/m2 Miryam Orozco APRN.CNP Work Phone: [facility] 11-09-2023 09:17-0400 Body weight 99 kg Miryam Tannhof MARKET MANAGER.DIGITAL DATA ANALYST Work Phone: [facility] 11-09-2023 09:17-0400 Diastolic blood pressure 60 mm[Hg] Miryam Tannhof MARKET MANAGER.DIGITAL DATA ANALYST Work Phone: [facility] 11-09-2023 09:17-0400 Heart rate 104 /min Miryam Tannhof MARKET MANAGER.DIGITAL DATA ANALYST Work Phone: [facility] 11-09-2023 09:17-0400 Respiratory rate 16 /min Miryam Tannhof MARKET MANAGER.DIGITAL DATA ANALYST Work Phone: [facility] 11-09-2023 09:17-0400 SaO2% (BldA) [Mass fraction] 100 % Miryam Tannhof MARKET MANAGER.DIGITAL DATA ANALYST Work Phone: [facility] 11-09-2023 09:17-0400 Systolic blood pressure 106 mm[Hg] Miryam Tannhof MARKET MANAGER.DIGITAL DATA ANALYST Work Phone: [facility] 07-22-2023 12:45-0400 Body weight 101.15 kg Miryam Tannhof MARKET MANAGER.DIGITAL DATA ANALYST Work Phone: [facility] 07-22-2023 12:45-0400 Diastolic blood pressure 70 mm[Hg] Miryam Tannhof MARKET MANAGER.DIGITAL DATA ANALYST Work Phone: [facility] 07-22-2023 12:45-0400 Heart rate 78 /min Miryam Tannhof MARKET MANAGER.DIGITAL DATA ANALYST Work Phone: [facility] 07-22-2023 12:45-0400 Respiratory rate 16 /min Miryam Tannhof MARKET MANAGER.DIGITAL DATA ANALYST Work Phone: [facility] 07-22-2023 12:45-0400 SaO2% (BldA) [Mass fraction] 97 % Miryam Tannhof MARKET MANAGER.DIGITAL DATA ANALYST Work Phone: [facility] 07-22-2023 12:45-0400 Systolic blood pressure 114 mm[Hg] Miryam Tannhof MARKET MANAGER.DIGITAL DATA ANALYST Work Phone: [facility] 07-15-2023 09:33-0400 Diastolic blood pressure 77 mm[Hg] Roque Delgado MD Work Phone: [facility] 07-15-2023 09:33-0400 Heart rate 76 /min Roque Delgado MD Work Phone: [facility] 07-15-2023 09:33-0400 Respiratory rate 15 /min Roque Delgado MD Work Phone: [facility] 07-15-2023 09:33-0400 SaO2% (BldA) [Mass fraction] 96 % Roque Delgado MD Work Phone: [facility] 07-15-2023 09:33-0400 Systolic blood pressure 114 mm[Hg] Roque Delgado MD Work Phone: [facility] 06-09-2023 09:05-0500 SaO2% (BldA) [Mass fraction] 93 % Dr. Judson Toney Work Phone: [facility] 06-09-2023 08:18-0500 Body temperature 98 [degF] Dr. Judson Toney Work Phone: [facility] 06-09-2023 08:18-0500 Diastolic blood pressure 77 mm[Hg] Dr. Judson Toney Work Phone: [facility] 06-09-2023 08:18-0500 Heart rate 67 /min Dr. Judson Toney Work Phone: [facility] 06-09-2023 08:18-0500 Respiratory rate 18 /min Dr. Judson Toney Work Phone: [facility] 06-09-2023 08:18-0500 Systolic blood pressure 139 mm[Hg] Dr. Judson Toney Work Phone: [facility] 06-09-2023 04:54-0500 Body mass index (BMI) [Ratio] 40 kg/m2 Dr. Judson Toney Work Phone: [facility] 06-09-2023 04:54-0500 Body weight 98.[address] Judson Toney Work Phone: [facility] 06-08-2023 01:28-0500 Body height 157.[address] Judson Toney Work Phone: [facility] 06-07-2023 23:36-0500 Body temperature 97.5 [degF] [facility] 06-07-2023 23:36-0500 Diastolic blood pressure 69 mm[Hg] [facility] 06-07-2023 23:36-0500 Heart rate 98 /min [facility] 06-07-2023 23:36-0500 Respiratory rate 19 /min [facility] 06-07-2023 23:36-0500 SaO2% (BldA) [Mass fraction] 99 % [facility] 06-07-2023 23:36-0500 Systolic blood pressure 127 mm[Hg] [facility] 06-07-2023 19:09-0500 Body height 157.48 cm [facility] 06-07-2023 19:09-0500 Body mass index (BMI) [Ratio] 38.4 kg/m2 [facility] 06-07-2023 19:09-0500 Body weight 95.25 kg [facility] 06-02-2023 07:01-0500 Body height 157.5 cm Rebekah Bobo MARKET MANAGER.DIGITAL DATA ANALYST Work Phone: [facility] 06-02-2023 07:01-0500 Body weight 98.88 kg Rebekah Bobo MARKET MANAGER.DIGITAL DATA ANALYST Work Phone: [facility] 05-18-2023 13:33-0500 Diastolic blood pressure 56 mm[Hg] Roque Delgado MD Work Phone: [facility] 05-18-2023 13:33-0500 Heart rate 79 /min Roque Delgado MD Work Phone: [facility] 05-18-2023 13:33-0500 Respiratory rate 18 /min Roque Delgado MD Work Phone: [facility] 05-18-2023 13:33-0500 SaO2% (BldA) [Mass fraction] 97 % Roque Delgado MD Work Phone: [facility] 05-18-2023 13:33-0500 Systolic blood pressure 122 mm[Hg] Roque Delgado MD Work Phone: [facility] 03-02-2023 06:59-0500 Body height 157.5 cm Rebekah Benjamin MARKET MANAGER.DIGITAL DATA ANALYST Work Phone: [facility] 03-02-2023 06:59-0500 Body weight 104.33 kg Rebekah Benjamin MARKET MANAGER.DIGITAL DATA ANALYST Work Phone: [facility] 02-16-2023 12:02-0500 Diastolic blood pressure 77 mm[Hg] Roque Delgado MD Work Phone: [facility] 02-16-2023 12:02-0500 Heart rate 54 /min Roque Delgado MD Work Phone: [facility] 02-16-2023 12:02-0500 Respiratory rate 17 /min Roque Delgado MD Work Phone: [facility] 02-16-2023 12:02-0500 SaO2% (BldA) [Mass fraction] 99 % Roque Delgado MD Work Phone: [facility] 02-16-2023 12:02-0500 Systolic blood pressure 130 mm[Hg] Roque Delgado MD Work Phone: [facility] 01-15-2023 08:19-0400 Heart rate 71 /min Roque Delgado MD Work Phone: [facility] 01-15-2023 08:19-0400 Respiratory rate 18 /min Roque Delgado MD Work Phone: [facility] 01-15-2023 08:19-0400 SaO2% (BldA) [Mass fraction] 97 % Roque Delgado MD Work Phone: [facility] 12-22-2022 08:51-0400 Body weight 104.33 kg Miryampoonam Kimballhof MARKET MANAGER.DIGITAL DATA ANALYST Work Phone: [facility] 12-22-2022 08:51-0400 Diastolic blood pressure 72 mm[Hg] Miryam Tannhof MARKET MANAGER.DIGITAL DATA ANALYST Work Phone: [facility] 12-22-2022 08:51-0400 Heart rate 61 /min Miryam Tannhof MARKET MANAGER.DIGITAL DATA ANALYST Work Phone: [facility] 12-22-2022 08:51-0400 Respiratory rate 16 /min Miryam Tannhof MARKET MANAGER.DIGITAL DATA ANALYST Work Phone: [facility] 12-22-2022 08:51-0400 SaO2% (BldA) [Mass fraction] 96 % Miryampoonam Kimballhof MARKET MANAGER.DIGITAL DATA ANALYST Work Phone: [facility] 12-22-2022 08:51-0400 Systolic blood pressure 112 mm[Hg] Miryam Tannhof MARKET MANAGER.DIGITAL DATA ANALYST Work Phone: [facility] 10-16-2022 08:03-0400 Heart rate 79 /min Roque Delgado MD Work Phone: [facility] 10-16-2022 08:03-0400 Respiratory rate 16 /min Roque Delgado MD Work Phone: [facility] 10-16-2022 08:03-0400 SaO2% (BldA) [Mass fraction] 95 % Roque Delgado MD Work Phone: [facility] 10-03-2022 09:26-0400 Body height 154.[address] Lizy Capone Work Phone: [facility] 10-03-2022 09:26-0400 Body mass index (BMI) [Ratio] 45.9 kg/m2 Dr. Lizy Capone Work Phone: [facility] 10-03-2022 09:26-0400 Body weight 110.[address] Lizy Capone Work Phone: [facility] 10-03-2022 09:26-0400 Diastolic blood pressure 74 mm[Hg] Dr. Lizy Capone Work Phone: [facility] 10-03-2022 09:26-0400 Heart rate 61 /min Dr. Lizy Capone Work Phone: [facility] 10-03-2022 09:26-0400 Respiratory rate 18 /min Dr. Lizy Capone Work Phone: [facility] 10-03-2022 09:26-0400 Systolic blood pressure 121 mm[Hg] Dr. Lizy Capone Work Phone: [facility] 10-02-2022 09:55-0400 Heart rate 62 /min Roque Delgado MD Work Phone: [facility] 10-02-2022 09:55-0400 Respiratory rate 17 /min Roque Delgado MD Work Phone: [facility] 10-02-2022 09:55-0400 SaO2% (BldA) [Mass fraction] 97 % Roque Delgado MD Work Phone: [facility] 08-13-2022 15:20-0400 Diastolic blood pressure 81 mm[Hg] Roque Delgado MD Work Phone: [facility] 08-13-2022 15:20-0400 Heart rate 53 /min Roque Delgado MD Work Phone: [facility] 08-13-2022 15:20-0400 Respiratory rate 15 /min Roque Delgado MD Work Phone: [facility] 08-13-2022 15:20-0400 SaO2% (BldA) [Mass fraction] 97 % Roque Delgado MD Work Phone: [facility] 08-13-2022 15:20-0400 Systolic blood pressure 131 mm[Hg] Roque Delgado MD Work Phone: [facility] 08-01-2022 07:31-0400 Body height 154.[address] Lizy Capone Work Phone: [facility] 08-01-2022 07:31-0400 Body weight 135.[address] Lizy Capone Work Phone: [facility] 07-31-2022 07:19-0400 Body mass index (BMI) [Ratio] 56.5 kg/m2 Dr. Lizy Capone Work Phone: [facility] 07-30-2022 14:35-0400 Diastolic blood pressure 59 mm[Hg] Roque Delgado MD Work Phone: [facility] 07-30-2022 14:35-0400 Heart rate 55 /min Roque Delgado MD Work Phone: [facility] 07-30-2022 14:35-0400 Respiratory rate 16 /min Roque Delgado MD Work Phone: [facility] 07-30-2022 14:35-0400 SaO2% (BldA) [Mass fraction] 100 % Roque Delgado MD Work Phone: [facility] 07-30-2022 14:35-0400 Systolic blood pressure 129 mm[Hg] Roque Delgado MD Work Phone: [facility] 06-30-2022 09:29-0400 Body height 157.5 cm Ragini Barley MARKET MANAGER.DIGITAL DATA ANALYST Work Phone (unformatted): [phone] [facility] 06-30-2022 09:29-0400 Body weight 135.63 kg Ragini Barley MARKET MANAGER.DIGITAL DATA ANALYST Work Phone (unformatted): [phone] [facility] 06-30-2022 09:29-0400 Diastolic blood pressure 80 mm[Hg] Ragini Barley MARKET MANAGER.DIGITAL DATA ANALYST Work Phone (unformatted): [phone] [facility] 06-30-2022 09:29-0400 Heart rate 66 /min Ragini Barley MARKET MANAGER.DIGITAL DATA ANALYST Work Phone (unformatted): [phone] [facility] 06-30-2022 09:29-0400 Respiratory rate 16 /min Ragini Barley MARKET MANAGER.DIGITAL DATA ANALYST Work Phone (unformatted): [phone] [facility] 06-30-2022 09:29-0400 SaO2% (BldA) [Mass fraction] 94 % Ragini Gomes MARKET MANAGER.DIGITAL DATA ANALYST Work Phone (unformatted): [phone] [facility] 06-30-2022 09:29-0400 Systolic blood pressure 135 mm[Hg] Ragini Gomes MARKET MANAGER.DIGITAL DATA ANALYST Work Phone (unformatted): [phone] [facility] 06-27-2022 10:23-0400 Body mass index (BMI) [Ratio] 56.5 kg/m2 Dr. Lizy Capone Work Phone: [facility] 06-27-2022 10:23-0400 Body weight 135.[address] Lizy Capone Work Phone: [facility] 06-27-2022 10:23-0400 Diastolic blood pressure 80 mm[Hg] Dr. Lizy Capone Work Phone: [facility] 06-27-2022 10:23-0400 Heart rate 68 /min Dr. Lizy Capone Work Phone: [facility] 06-27-2022 10:23-0400 Respiratory rate 18 /min Dr. Lizy Capone Work Phone: [facility] 06-27-2022 10:23-0400 Systolic blood pressure 143 mm[Hg] Dr. Lizy Capone Work Phone: [facility] 06-26-2022 08:54-0400 Body weight 135.63 kg Miryam Orozco MARKET MANAGER.DIGITAL DATA ANALYST Work Phone: [facility] 06-26-2022 08:54-0400 Diastolic blood pressure 76 mm[Hg] Miryam Kimballhof MARKET MANAGER.DIGITAL DATA ANALYST Work Phone: [facility] 06-26-2022 08:54-0400 Heart rate 77 /min Miryam Kimballhof MARKET MANAGER.DIGITAL DATA ANALYST Work Phone: [facility] 06-26-2022 08:54-0400 Respiratory rate 20 /min Miryam Kimballhof MARKET MANAGER.DIGITAL DATA ANALYST Work Phone: [facility] 06-26-2022 08:54-0400 SaO2% (BldA) [Mass fraction] 96 % Miryam Orozco MARKET MANAGER.DIGITAL DATA ANALYST Work Phone: [facility] 06-26-2022 08:54-0400 Systolic blood pressure 124 mm[Hg] Miryam Orozco MARKET MANAGER.DIGITAL DATA ANALYST Work Phone: [facility] 05-13-2022 15:21-0500 Body height 157.5 cm Jae Cagle MD Work Phone: [facility] 05-13-2022 15:21-0500 Body temperature 98.01 [degF] Jae Cagle MD Work Phone: [facility] 05-13-2022 15:21-0500 Body weight 129.28 kg Jae Cagle MD Work Phone: [facility] 05-13-2022 15:21-0500 Diastolic blood pressure 58 mm[Hg] Jae Cagle MD Work Phone: [facility] 05-13-2022 15:21-0500 Heart rate 74 /min Jae Cagle MD Work Phone: [facility] 05-13-2022 15:21-0500 SaO2% (BldA) [Mass fraction] 91 % Jae Cagle MD Work Phone: [facility] 05-13-2022 15:21-0500 Systolic blood pressure 108 mm[Hg] Jae Cagle MD Work Phone: [facility] 03-06-2022 09:55-0500 Body height 154.[address] Lizy Capone Work Phone: [facility] 03-06-2022 09:55-0500 Body mass index (BMI) [Ratio] 50.6 kg/m2 Dr. Lizy Capone Work Phone: [facility] 03-06-2022 09:55-0500 Body weight 121.[address] Lizy Capone Work Phone: [facility] 03-06-2022 09:55-0500 Diastolic blood pressure 77 mm[Hg] Dr. Lizy Capone Work Phone: [facility] 03-06-2022 09:55-0500 Heart rate 59 /min Dr. Lizy Capone Work Phone: [facility] 03-06-2022 09:55-0500 Respiratory rate 18 /min Dr. Lizy Capone Work Phone: [facility] 03-06-2022 09:55-0500 Systolic blood pressure 151 mm[Hg] Dr. Lizy Capone Work Phone: [facility] 01-30-2022 15:50-0400 Heart rate 67 /min Roque Delgado MD Work Phone: [facility] 01-30-2022 15:50-0400 Respiratory rate 18 /min Roque Delgado MD Work Phone: [facility] 01-30-2022 15:50-0400 SaO2% (BldA) [Mass fraction] 97 % Roque Delgado MD Work Phone: [facility] 01-14-2022 15:42-0400 Body height 154.[address] Lizy Capone Work Phone: [facility] Work Phone: 01-14-2022 15:42-0400 Body mass index (BMI) [Ratio] 49.8 kg/m2 Dr. Lizy Capone Work Phone: [facility] Work Phone: 01-14-2022 15:42-0400 Body weight 119.[address] Lizy Capone Work Phone: [facility] Work Phone: 01-14-2022 15:42-0400 Diastolic blood pressure 73 mm[Hg] Dr. Lizy Capone Work Phone: [facility] Work Phone: 01-14-2022 15:42-0400 Heart rate 60 /min Dr. Lizy Capone Work Phone: [facility] Work Phone: 01-14-2022 15:42-0400 Respiratory rate 18 /min Dr. Lizy Capone Work Phone: [facility] Work Phone: 01-14-2022 15:42-0400 SaO2% (BldA) [Mass fraction] 95 % Dr. Lizy Capone Work Phone: [facility] Work Phone: 01-14-2022 15:42-0400 Systolic blood pressure 158 mm[Hg] Dr. Lizy Capone Work Phone: [facility] Work Phone: 01-08-2022 11:38-0400 Body temperature 97.9 [degF] oRque Delgado MD Work Phone: [facility] 01-08-2022 11:38-0400 Diastolic blood pressure 70 mm[Hg] Roque Delgado MD Work Phone: [facility] 01-08-2022 11:38-0400 Respiratory rate 16 /min Roque Delgado MD Work Phone: [facility] 01-08-2022 11:38-0400 SaO2% (BldA) [Mass fraction] 100 % Roque Delgado MD Work Phone: [facility] 01-08-2022 11:38-0400 Systolic blood pressure 148 mm[Hg] Roque Delgado MD Work Phone: [facility] 01-08-2022 10:36-0400 Heart rate 64 /min Roque Delgado MD Work Phone: [facility] 01-02-2022 07:07-0400 Body weight 119.75 kg Miryam Orozco APRN.DIGITAL DATA ANALYST Work Phone: [facility] 01-02-2022 07:07-0400 Diastolic blood pressure 80 mm[Hg] Miryam Orozco APRN.DIGITAL DATA ANALYST Work Phone: [facility] 01-02-2022 07:07-0400 Heart rate 61 /min Miryam Orozco MARKET MANAGER.DIGITAL DATA ANALYST Work Phone: [facility] 01-02-2022 07:07-0400 Respiratory rate 20 /min Miryam Orozco MARKET MANAGER.DIGITAL DATA ANALYST Work Phone: [facility] 01-02-2022 07:07-0400 SaO2% (BldA) [Mass fraction] 98 % Miryam Orozco MARKET MANAGER.DIGITAL DATA ANALYST Work Phone: [facility] 01-02-2022 07:07-0400 Systolic blood pressure 138 mm[Hg] Miryam Orozco MARKET MANAGER.DIGITAL DATA ANALYST Work Phone: [facility] 12-26-2021 14:38-0400 Body height 157.5 cm Avis Marrufo MARKET MANAGER.DIGITAL DATA ANALYST Work Phone: [facility] 12-26-2021 14:38-0400 Body weight 104.33 kg Avis Marrufo MARKET MANAGER.DIGITAL DATA ANALYST Work Phone: [facility] 12-26-2021 12:36-0400 Body temperature 96.8 [degF] Dr. Lizy Capone Work Phone: [facility] Work Phone: 12-26-2021 12:36-0400 Diastolic blood pressure 76 mm[Hg] Dr. Lizy Capone Work Phone: [facility] Work Phone: 12-26-2021 12:36-0400 Heart rate 65 /min Dr. Lizy Capone Work Phone: [facility] Work Phone: 12-26-2021 12:36-0400 Respiratory rate 18 /min Dr. Lizy Capone Work Phone: [facility] Work Phone: 12-26-2021 12:36-0400 SaO2% (BldA) [Mass fraction] 97 % Dr. Lizy Capone Work Phone: [facility] Work Phone: 12-26-2021 12:36-0400 Systolic blood pressure 145 mm[Hg] Dr. Lizy Capone Work Phone: [facility] Work Phone: 12-26-2021 07:36-0400 Body height 154.[address] Lizy Capone Work Phone: [facility] Work Phone: 12-25-2021 13:06-0400 Diastolic blood pressure 67 mm[Hg] Roque Delgado MD Work Phone: [facility] 12-25-2021 13:06-0400 Heart rate 57 /min Roque Delgado MD Work Phone: [facility] 12-25-2021 13:06-0400 Respiratory rate 18 /min Roque Delgado MD Work Phone: [facility] 12-25-2021 13:06-0400 SaO2% (BldA) [Mass fraction] 98 % Roque Delgado MD Work Phone: [facility] 12-25-2021 13:06-0400 Systolic blood pressure 142 mm[Hg] Roque Delgado MD Work Phone: [facility] 12-25-2021 13:03-0400 Body temperature 97.7 [degF] Roque Delgado MD Work Phone: [facility] 12-19-2021 09:20-0400 Body temperature 98 [degF] Dr. Lizy Capone Work Phone: [facility] Work Phone: 12-19-2021 09:20-0400 Body weight 120.[address] Lizy Capone Work Phone: [facility] Work Phone: 12-19-2021 09:20-0400 Diastolic blood pressure 67 mm[Hg] Dr. Lizy Capone Work Phone: [facility] Work Phone: 12-19-2021 09:20-0400 Heart rate 67 /min Dr. Lizy Capone Work Phone: [facility] Work Phone: 12-19-2021 09:20-0400 Respiratory rate 18 /min Dr. Lizy Capone Work Phone: [facility] Work Phone: 12-19-2021 09:20-0400 SaO2% (BldA) [Mass fraction] 98 % Dr. Lizy Capone Work Phone: [facility] Work Phone: 12-19-2021 09:20-0400 Systolic blood pressure 134 mm[Hg] Dr. Lizy Capone Work Phone: [facility] Work Phone: 09-19-2021 09:23-0400 Heart rate 63 /min Avis Marrufo MARKET MANAGER.DIGITAL DATA ANALYST Work Phone: [facility] 09-19-2021 09:23-0400 Respiratory rate 18 /min Avis Marrufo MARKET MANAGER.DIGITAL DATA ANALYST Work Phone: [facility] 09-19-2021 09:23-0400 SaO2% (BldA) [Mass fraction] 97 % Avis Marrufo MARKET MANAGER.DIGITAL DATA ANALYST Work Phone: [facility] 08-06-2021 13:23-0400 Body height 154.[address] Lizy Capone Work Phone: [facility] Work Phone: 08-06-2021 13:23-0400 Body mass index (BMI) [Ratio] 43.6 kg/m2 Dr. Lizy Capone Work Phone: [facility] Work Phone: 08-06-2021 13:23-0400 Body weight 104.[address] Lizy Capone Work Phone: [facility] Work Phone: 08-06-2021 13:23-0400 Diastolic blood pressure 79 mm[Hg] Dr. Lizy Capone Work Phone: [facility] Work Phone: 08-06-2021 13:23-0400 Heart rate 74 /min Dr. Lizy Capone Work Phone: [facility] Work Phone: 08-06-2021 13:23-0400 Respiratory rate 18 /min Dr. Lizy Capone Work Phone: [facility] Work Phone: 08-06-2021 13:23-0400 SaO2% (BldA) [Mass fraction] 95 % Dr. Lizy Capone Work Phone: [facility] Work Phone: 08-06-2021 13:23-0400 Systolic blood pressure 145 mm[Hg] Dr. Lizy Capone Work Phone: [facility] Work Phone: 08-06-2021 13:23-0400 Body height 154.[address] Lizy Capone Work Phone: [facility] Work Phone: 08-06-2021 13:23-0400 Body mass index (BMI) [Ratio] 43.6 kg/m2 Dr. Lizy Capone Work Phone: [facility] Work Phone: 08-06-2021 13:23-0400 Body weight 104.[address] Lizy Capone Work Phone: [facility] Work Phone: 08-06-2021 13:23-0400 Diastolic blood pressure 79 mm[Hg] Dr. Lizy Capone Work Phone: [facility] Work Phone: 08-06-2021 13:23-0400 Heart rate 74 /min Dr. Lizy Capone Work Phone: [facility] Work Phone: 08-06-2021 13:23-0400 Respiratory rate 18 /min Dr. Lizy Capone Work Phone: [facility] Work Phone: 08-06-2021 13:23-0400 SaO2% (BldA) [Mass fraction] 95 % Dr. Lizy Capone Work Phone: [facility] Work Phone: 08-06-2021 13:23-0400 Systolic blood pressure 145 mm[Hg] Dr. Lizy Capone Work Phone: [facility] Work Phone: 07-16-2021 09:08-0400 Body weight 104.42 kg Lizy Capone MD Work Phone: [facility] 07-16-2021 09:08-0400 Diastolic blood pressure 64 mm[Hg] Lizy Capone MD Work Phone: [facility] 07-16-2021 09:08-0400 Heart rate 72 /min Lizy Capone MD Work Phone: [facility] 07-16-2021 09:08-0400 Respiratory rate 16 /min Lizy Capone MD Work Phone: [facility] 07-16-2021 09:08-0400 Systolic blood pressure 110 mm[Hg] Lizy Capone MD Work Phone: [facility] Encounters Encounter Date Encounter Type Care Provider Facility Start: 09-28-2024 Evaluation and management of inpatient Miryam Serrapat [employer] Work Phone: [facility] Work Phone: Start: 09-28-2024 Dr. Michelle Gallardo MD - Progressive Care Unit Work Phone: Start: 09-22-2024 End: 09-22-2024 Office outpatient visit 25 minutes Lizy Capone MD Work Phone: [facility] [place] Comment on above: BENIGN HYPERTENSION( aka HTN) (Primary Dx); Lumbar spondylosis; Myofascial pain; Hypothyroidism, acquired; Anemia in chronic kidney disease, unspecified CKD stage; CKD (chronic kidney disease) stage 4, GFR 15-29 ml/min (HCC); Bilateral leg edema Start: 09-22-2024 End: 09-22-2024 ambulatory LIZY CAPONE Facility:[facility] Start: 09-20-2024 End: 09-20-2024 Follow-up encounter Lizy Capone MD Work Phone: [facility] Start: 09-20-2024 ambulatory Gonzalo Lomax Facility:[facility] Start: 09-20-2024 Dr. Gonzalo Lomax MD - [facility] Start: 09-19-2024 ambulatory Gonzalo Lomax Facility:[facility] Start: 09-19-2024 Dr. Gonzalo Lomax MD -[facility] Work Phone: Start: 09-15-2024 End: 09-15-2024 Patient encounter procedure Michael Carter APRN.CNP Work Phone: [facility] Comment on above: Subacute cough (Prim maximus Dx); Leg swelling; SOB (shortness of breath); Lower respiratory infection Start: 09-15-2024 End: 09-15-2024 ambulatory MICHAEL CARTER Facility:[facility] Start: 09-14-2024 End: 09-15-2024 Telephone encounter Lizy Capone MD Work Phone: [facility] Comment on above: Results Start: 09-12-2024 ambulatory LIZY CAPONE Facil ity:[facility] Start: 09-12-2024 End: 09-12-2024 Subsequent hospital visit by physician Xr [facility] Work Phone: Radiology Comment on above: Subacute cough [R05. 2] Start: 09-12-2024 ambulatory Gonzalo Lomax Facility:[facility] Start: 09-12-2024 Dr. Gonzalo Lomax MD - [facility] Start: 09-12-2024 End: 09-12-2024 Telephone encounter Lizy Capone MD Work Phone: [facility] Comment on above: Patient Question; Or ders Start: 09-07-2024 End: 09-08-2024 Telephone encounter Lizy Capone MD Work Phone: [facility] Comment on above: Patient Update Start: 09-06-2024 End: 09-06-2024 Dr. Gonzalo Lomax MD -[facility] Start: 09-06-2024 End: 09-06-2024 ambulatory [facility] [employer] Work Phone: [facility] Work Phone: Start: 09-05-2024 End: 09-05-2024 Telephone encounter Lizy Capone MD Work Phone: [facility] Comment on above: Medication Question Start: 09-05-2024 End: 09-05-2024 Dr. Mehdi Womack MD -[facility] Work Phone: Start: 09-05-2024 End: 09-05-2024 ambulatory [facility] [employer] Work Phone: [facility] Work Phone: Start: 09-04-2024 End: 09-04-2024 ambulatory SELF Facility:[facility] Start: 09-04-2024 End: 09-05-2024 Patient encounter procedure Deacon Valdez MARKET MANAGER.DIGITAL DATA ANALYST Work Phone: [facility] Comment on above: Lower respiratory in fection (Primary Dx) Refill Request Start: 09-01-2024 End: 09-03-2024 ambulatory [facility] [employer] Work Phone: [facility] Work Phone: Start: 09-01-2024 End: 09-03-2024 Dr. Gonzalo [facility]omax [facility] Work Phone: Start: 08-30-2024 End: 09-01-2024 Telephone encounter Lizy Capone MD Work Phone: [facility] Comment on above: Patient Update Start: 08-22-2024 End: 08-22-[address] [facility] Facility:[facility] Start: 08-22-2024 End: 08-22-2024 Office outpatient visit 25 minutes Lizy Capone MD Work Phone: [facility] [place] Comment on above: BENIGN HYPERTENSION( aka HTN) (Primary Dx); Leg swelling; Chronic kidney disease, stage 4 (severe) (HCC); Chronic obstructive pulmonary disease, unspecified COPD type (HCC); Class 3 severe obesity with body mass index (BMI) of 40.0 to 44.9 in adult; Iron deficiency anemia due to chronic blood loss; Recurrent UTI (urinary tract infection); Hypothyroidism, acquired; Seizures (HCC); Wound of right lower extremity, subsequent encounter; Chronic deep 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 (HCC); Insomnia, unspecified type Start: 08-22-2024 End: 08-22-2024 ambulatory LIZY CAPONE Facility:[facility] Start: 08-22-2024 ambulatory [facility] Facility :[facility] Start: 08-22-2024 Dr. Gonzalo Lara [facility] Start: 08-18-2024 ambulatory [facility] Facility :[facility] Start: 08-18-2024 Gustavo Lara Gerry Turcios Start: 08-16-2024 ambulatory [facility] Facility :[facility] Start: 08-16-2024 Gustavo Lara Gerry Turcios Start: 08-15-2024 ambulatory [facility] Facility :[facility] Start: 08-15-2024 Dr. Gonzalo Lara [facility] Start: 08-12-2024 End: 08-12-2024 Dr. Gonzalo Lomax MD -[facility] Work Phone: Start: 08-12-2024 End: 08-12-2024 ambulatory Gonzalo Lomax Facility:[facility] Start: 08-08-2024 ambulatory [facility] Facility :[facility] Start: 08-08-2024 Gustavo Lara Gerry Turcios Start: 08-01-2024 ambulatory [facility] Facility :[facility] Start: 08-01-2024 Gustavo Lara Gerry Turcios Start: 07-29-2024 End: 07-29-2024 Miryam Serraf [employer] Work Phone: -Emergency Department Work Phone: Start: 07-29-2024 End: 07-29-2024 Emergency department patient visit Miryam Orozco [employer] Work Phone: [facility] Work Phone: Start: 07-25-2024 ambulatory [facility] Facility :[facility] Start: 07-25-2024 Gustavo Turcios Start: 07-20-2024 End: 07-20-2024 ambulatory [facility] [employer] Work Phone: [facility] Work Phone: Start: 07-20-2024 End: 07-20-2024 Minna Villarreal NP-C -[facility] Work Phone: Start: 07-18-2024 ambulatory [facility] Facility :[facility] Start: 07-18-2024 Gustavo Turcios Start: 07-11-2024 ambulatory [facility] Facility :[facility] Start: 07-11-2024 Gustavo Turcios Start: 07-04-2024 ambulatory [facility] Facility :[facility] Start: 07-04-2024 Gustavo Turcios Start: 07-01-2024 End: 07-04-2024 Refill Lizy Capone MD Work Phone: [facility] Comment on above: Refill Request Start: 06-27-2024 ambulatory [facility] Facility :[facility] Start: 06-27-2024 Gustavo Turcios Start: 06-22-2024 End: 06-22-2024 ambulatory [facility] Facility:[facility] Start: 06-22-2024 End: 06-22-2024 Minna Villarreal NP-C -[facility] Work Phone: Start: 06-20-2024 ambulatory [facility] Facility :[facility] Start: 06-20-2024 Gustavo Castorena MD [facility] Gerry Karolina Start: 06-14-2024 End: 06-14-2024 ambulatory [facility] Facility:[facility] Start: 06-14-2024 End: 06-14-2024 Dr. Gustavo Castorena MD -[facility] Work Phone: Start: 06-13-2024 End: 06-13-2024 ambulatory [facility] Facility:[facility] Start: 06-13-2024 End: 06-13-2024 [facility] Start: 06-10-2024 Dr. Mari Mehta [facility] Work Phone: Start: 06-09-2024 Dr. Mari Mehta [facility] Work Phone: Start: 06-07-2024 Christa Michel RN -[facility] Work Phone: Start: 06-07-2024 ambulatory [facility] Facility :[facility] Start: 06-07-2024 Dr. Mari Mehta [facility] Work Phone: Start: 06-06-2024 Dr. Mari Mehta [facility] Work Phone: Start: 06-02-2024 Dr. Mari Mehta [facility] Work Phone: Start: 05-31-2024 Dr. Mari Mehta [facility] Work Phone: Start: 05-30-2024 Dr. Mari Mehta [facility] Work Phone: Start: 05-27-2024 Dr. Mari Mehta [facility] Work Phone: Start: 05-26-2024 Dr. Mari Mehta [facility] Work Phone: Start: 05-23-2024 Dr. Mari Mehta [facility] Work Phone: Start: 05-20-2024 Dr. Mari Mehta [facility] Work Phone: Start: 05-19-2024 Dr. Mari Mehta [facility] Work Phone: Start: 05-18-2024 ambulatory [facility] Facility :[facility] Start: 05-18-2024 End: 06-10-2024 Evaluation and management of inpatient [facility] Facility:[facility] Start: 05-18-2024 End: 06-10-2024 Dr. Mari Mehta DO -Rehab Unit Work Phone: Start: 05-04-2024 End: 05-04-2024 ambulatory [facility] Facility:[facility] Start: 05-04-2024 End: 05-18-2024 Evaluation and management of inpatient Kindra Gannon MD Work Phone: [facility] Start: 05-04-2024 Dr. Edgar Davies DO -[facility] Start: 05-03-2024 Dr. Edgar Davies DO -[facility] Start: 05-02-2024 End: 05-02-2024 Telephone encounter Lizy Capone MD Work Phone: [facility] Comment on above: Patient Update Start: 05-02-2024 Dr. Edgar Davies DO -[facility] Start: 05-02-2024 Dr. Ralph Haynes MD -[facility] Work Phone: Start: 05-02-2024 End: 05-02-2024 ambulatory [facility] Facility:[facility] Start: 05-02-2024 End: 05-02-2024 Dr. Hua Arellano MD -[facility] Work Phone: Start: 05-01-2024 ambulatory [facility] Start: 05-01-2024 End: 05-04-2024 Evaluation and management of inpatient Adithya Harrell Facility:[facility] Start: 05-01-2024 End: 05-04-2024 Dr. Adithya Harrell MD -Intensive Care Uni t Work Phone: Start: 04-28-2024 End: 04-28-2024 ambulatory Miryam Orozco [employer] Work Phone: [facility] Work Phone: Start: 04-28-2024 End: 04-28-2024 Dr. Mari Mehta DO -Physical Therapy Work Phone: Start: 03-16-2024 End: 03-16-2024 [facility] Start: 03-07-2024 End: 03-07-2024 Refill Miryam Orozco MARKET MANAGER.DIGITAL DATA ANALYST Work Phone: [facility] Comment on above: Refill Request Start: 03-04-2024 End: 03-04-2024 ambulatory Miryampoonam Kimballhof Facility:[facility] Start: 03-01-2024 ambulatory Miryam Jigarhof Facility :[facility] Start: 02-24-2024 ambulatory Miryam Jigarhof Facility :[facility] Start: 02-24-2024 End: 03-03-2024 Evaluation and management of inpatient Miryam Jigarhof Facility:[facility] Start: 02-16-2024 End: 02-16-2024 [facility] Start: 02-12-2024 End: 02-12-2024 Telephone encounter Lizy Capone MD Work Phone: [facility] Comment on above: medical clearance fo rm ([facility] for shoulder surgery) Start: 02-09-2024 Patient encounter status Parminder Orozco [employer] Work Phone: [facility] Start: 02-09-2024 Encounter for other preprocedural examination [place] [facility] Start: 02-09-2024 End: 02-09-2024 ambulatory [facility] Facility:[facility] Start: 01-28-2024 End: 01-28-2024 Patient encounter procedure Miryam Orozco APRN.CNP Work Phone: [facility] Comment on above: BENIGN HYPERTENSION( aka HTN) (Primary Dx); Hyperlipidemia LDL goal <100; Leg swelling; Balance problem; Female stress incontinence; Hypothyroidism, acquired; Insomnia, unspecified type; CKD (chronic kidney disease) stage 4, GFR 15-29 ml/min (HCC); Chronic shoulder pain, unspecified laterality; Chronic right-sided low back pain without sciatica; Chronic knee pain, unspecified laterality; Encounter for immunization Start: 01-28-2024 End: 01-28-2024 ambulatory [facility] Facility:[facility] Start: 01-26-2024 End: 01-26-2024 ambulatory [facility] Facility:[facility] Start: 12-29-2023 End: 02-08-2024 Telephone encounter Stephanie Jackson MD Work Phone: Orthopaedics Comment on above: Appointment Start: 12-17-2023 End: 12-17-2023 Patient encounter procedure Roque Delgado MD Work Phone: [facility] Comment on above: 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); Lumbar spondylosis Start: 12-17-2023 End: 12-17-2023 ambulatory ROQUE DELGADO Facility:[facility] Start: 12-16-2023 End: 12-17-2023 Telephone encounter Miryam Orozco APRN.DIGITAL DATA ANALYST Work Phone: [facility] [place] [facility] Comment on above: Results (Labs ) Start: 12-14-2023 End: 12-14-2023 Telephone encounter Miryam Orozco APRN.CNP Work Phone: [facility] [place] [facility] Comment on above: Returning Patient's Call Start: 12-14-2023 End: 12-14-2023 ambulatory [facility]IR[facility]AM [facility] Facility:[facility] Start: 12-11-2023 End: 12-11-2023 Refill Miryam Orozco APRN.CNP Work Phone: [facility] [place] [facility] Comment on above: Refill Request Start: 12-04-2023 End: 12-04-2023 ambulatory STARR MARQUES Facility:[facility] Start: 12-04-2023 End: 12-04-2023 Patient encounter procedure Starr Marques MD Work Phone: OB/Gynecology Comment on above: Complex endometrial hyperplasia with atypia (Primary Dx); IUD (intrauterine device) in place Start: 12-01-2023 End: 12-01-2023 ambulatory [facility] Facility:[facility] Start: 11-18-2023 Telephone encounter Roque Delgado MD Work Phone: [facility] [place] Comment on above: Procedure Start: 11-16-2023 End: 11-16-2023 Patient encounter procedure Roque Delgado MD Work Phone: [facility] [place] Start: 11-16-2023 End: 11-16-2023 ambulatory Roque Delgado MD Work Phone: [facility] [place] Comment on above: Procedure; Pain (Marie ulder Pain) (RFA Right suprascapular) Start: 11-15-2023 Refill Mulugeta ÁLVAREZ RN.DIGITAL DATA ANALYST Work Phone: [facility] Comment on above: Refill Request Start: 11-09-2023 End: 11-09-2023 Patient encounter procedure [facility] MARKET MANAGER.DIGITAL DATA ANALYST Work Phone: [facility] Comment on above: Dizziness (Primary D x); BENIGN HYPERTENSION(aka HTN); Hyperlipidemia LDL goal <100; Leg swelling; CKD (chronic kidney disease) stage 4, GFR 15-29 ml/min ([facility]); Female stress incontinence; Chronic right-sided low back pain without sciatica; Chronic knee pain, unspecified laterality; Chronic shoulder pain, unspecified laterality; Hypothyroidism, acquired; Insomnia, unspecified type Start: 11-09-2023 End: 11-09-2023 ambulatory [facility] Facility:[facility] Start: 10-28-2023 Telephone encounter Roque Delgado MD Work Phone: [facility] Comment on above: Injections Start: 10-27-2023 Telephone encounter Roque Delgado MD Work Phone: [facility] Comment on above: Returning Patient's Call Start: 10-06-2023 End: 10-06-2023 ambulatory Miryam Serra Facility:[facility] Start: 10-06-2023 End: 10-06-2023 ambulatory [facility] Facility:[facility] Start: 09-28-2023 Refill Lizy bran MD Work Phone: [facility] Comment on above: Refill Request Start: 09-21-2023 Refill Lizy bran MD Work Phone: 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 Comment on above: 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); Chronic right-sided low back pain without sciatica; Chronic knee pain, unspecified laterality; Chronic shoulder pain, unspecified laterality; Leg swelling; CKD (chronic kidney disease) stage 4, GFR 15-29 ml/min ([facility]); BENIGN HYPERTENSION(aka HTN); Hypothyroidism, acquired; Hyperlipidemia LDL goal <100; Insomnia, unspecified type; Chronic constipation Start: 07-15-2023 End: 07-15-2023 Patient encounter procedure Roque Delgado MD Work Phone: [facility] Start: 07-15-2023 End: 07-15-2023 ambulatory Roque Delgado MD Work Phone: [facility] Comment on above: Procedure (rfa); Chris n (Shoulder Pain) (left) Start: 06-29-2023 Refill Lizy bran MD Work Phone: [facility] Comment on above: Refill Request Start: 06-22-2023 Refill Miryam Orozco APRN.DIGITAL DATA ANALYST Work Phone: [facility] Comment on above: Refill Request Start: 06-16-2023 Refill Roque Delgado MD Work Phone: [facility] Comment on above: Refill Request Start: 06-09-2023 Non-patient / Non-visit Dr. Pravin Toney Work Phone: [facility] Work Phone: Start: 06-08-2023 Non-patient / Non-visit Dr. 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) Start: 06-02-2023 End: 06-02-2023 Telemedicine consultation with patient Rebekah Bobo MARKET MANAGER.DIGITAL DATA ANALYST Work Phone: [facility] Start: 06-02-2023 End: 06-02-2023 ambulatory REBEKAH BOBO Facility:[facility] Start: 05-20-2023 Telephone encounter Roque Delgado MD Work Phone: [facility] Comment on above: Procedure Start: 05-18-2023 End: 05-18-2023 Patient encounter procedure Roque Delgado MD Work Phone: [facility] Start: 05-18-2023 End: 05-18-2023 ambulatory Roque Delgado MD Work Phone: [facility] Comment on above: Procedure Start: 04-16-2023 End: 04-16-2023 ambulatory ROQUE DELGADO Facility:[facility] Start: 03-31-2023 End: 03-31-2023 Subsequent hospital visit by physician Tereso [facility] Work Phone: Radiology Comment on above: Acute cough [R05.1] Start: 03-02-2023 End: 03-02-2023 ambulatory Rebekah Bobo MARKET MANAGER.DIGITAL DATA ANALYST Work Phone: [facility] Comment on above: 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) Start: 03-02-2023 End: 03-02-2023 Telemedicine consultation with patient Rebekah Bobo MARKET MANAGER.DIGITAL DATA ANALYST Work Phone: [facility] Start: 03-02-2023 End: 03-03-2023 ambulatory LIZY CAPONE Facility:[facility] Start: 02-16-2023 End: 02-16-2023 Patient encounter procedure Roque Delgado MD Work Phone: [facility] Start: 02-16-2023 End: 02-16-2023 ambulatory Roque Delgado MD Work Phone: [facility] Comment on above: Procedure (Glenohume ral Joint injection - bilateral) Start: 01-15-2023 Telephone encounter Roque Delgado MD Work Phone: [facility] Comment on above: Injection Questions Start: 01-15-2023 End: 01-15-2023 Subsequent hospital visit by physician Tereso [facility] Liu Work Phone: Radiology Comment on above: Primary osteoarthrit is of both shoulders [M19.011, M19.012] Start: 01-15-2023 End: 01-15-2023 Patient encounter procedure Roque Delgado MD Work Phone: [facility] Comment on above: 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 Comment on above: Results (Labs ) Start: 12-22-2022 End: 12-22-2022 Patient encounter procedure Miryam Orozco APRN.DIGITAL DATA ANALYST Work Phone: [facility] Comment on above: 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); Chronic right-sided low back pain without sciatica; BENIGN HYPERTENSION(aka HTN); Hypothyroidism, acquired; Insomnia, unspecified type; Leg swelling; Decreased glomerular filtration rate (GFR); Chronic knee pain, unspecified laterality; Acute pain of left shoulder Start: 12-04-2022 Refill Roque Delgado MD Work Phone: [facility] Comment on above: Refill Request Start: 10-16-2022 End: 10-16-2022 Patient encounter procedure Roque Delgado MD Work Phone: [facility] Comment on above: Lumbar spondylosis ( Primary Dx); Myofascial pain Start: 10-15-2022 End: 10-15-[address] Lizy Capone Work Phone: [facility] Work Phone: Start: 10-15-2022 End: 10-15-[address] Lizy Capone Work Phone: [facility], Phy Office 3rd Flr Start: 10-08-2022 Refill Lizy bran MD Work Phone: [facility] Comment on above: Refill Request Start: 10-03-2022 End: 10-03-[address] Lizy Capone Work Phone: [facility] Work Phone: Start: 10-02-2022 End: 10-02-2022 Patient encounter procedure Roque Delgado MD Work Phone: [facility] Comment on above: Lumbar spondylosis ( Primary Dx); Chronic bilateral low back pain without sciatica Start: 08-13-2022 End: 08-13-2022 ambulatory Roque Delgado MD Work Phone: [facility] Comment on above: Procedure Start: 08-13-2022 End: 08-13-2022 Patient encounter procedure Roque Delgado MD Work Phone: [facility] Start: 08-04-2022 Telephone encounter Roque Delgado MD Work Phone: [facility] Comment on above: Results Start: 08-01-2022 End: 08-01-2022 Admission to same day surgery center Dr. Lizy Capone Work Phone: [facility] Machine Operator/Special Procedures Start: 08-01-2022 End: 08-01-[address] Lizy Capone Work Phone: [facility] Work Phone: Start: 07-31-2022 Non-patient / Non-visit Dr. Manjeet Capone Work Phone: [facility] Start: 07-31-2022 End: 07-31-2022 Subsequent hospital visit by physician Xr [facility] Work Phone: Radiology Comment on above: Closed fracture of b ase of fifth metatarsal bone of right foot at metaphyseal-diaphyseal junction, initial encounter [S99.191A] Start: 07-30-2022 End: 07-30-2022 ambulatory Roque Delgado MD Work Phone: [facility] Comment on above: Procedure (SPR) Start: 07-30-2022 End: 07-30-2022 Patient encounter procedure Roque Delgado MD Work Phone: [facility] Start: 07-14-2022 Refill Lizy bran MD Work Phone: [facility] Comment on above: Refill Request (OUT OF MEDICATION) Start: 07-07-2022 Non-patient / Non-visit Dr. Manjeet Capone Work Phone: [facility] Start: 07-02-2022 End: 07-02-2022 Patient encounter procedure Roque Delgado MD Work Phone: [facility] Comment on above: Canceled (Pt cx: Carey ointment Conflict) Start: 06-30-2022 Telephone encounter Mulugeta garrett APRN.DIGITAL DATA ANALYST Work Phone: [facility] Comment on above: Results Start: 06-30-2022 End: 06-30-2022 Patient encounter procedure Ragini Gomes APRN.DIGITAL DATA ANALYST Work Phone (unformatted): [phone] [employer] [facility] Comment on above: 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); Urge urinary incontinence Start: 06-27-2022 Telephone encounter Mulugeta garrett APRN.DIGITAL DATA ANALYST Work Phone: [facility] Comment on above: Results Start: 06-27-2022 End: 06-27-[address] Lizy Capone Work Phone: [facility] Start: 06-26-2022 End: 06-26-2022 Patient encounter procedure Miryam Tannhof MARKET MANAGER.DIGITAL DATA ANALYST Work Phone: [facility] Comment on above: Dysuria (Primary Dx) ; Female stress incontinence; Leg swelling; Chronic knee pain, unspecified laterality; Chronic right-sided low back pain without sciatica; Change in stool Start: 06-11-2022 End: 06-11-[address] Lizy Capone Work Phone: [facility] Work Phone: Start: 06-11-2022 End: 06-11-[address] Lizy Capone Work Phone: [facility] Start: 06-04-2022 Telephone encounter Roque Delgado MD Work Phone: [facility] Comment on above: Appointment (Counts Include [facility] ed for SPR device) Start: 05-30-2022 Telephone encounter Roque Delgado MD Work Phone: [facility] Comment on above: Appointment Start: 05-26-[address] MD Work Phone: [employer] [facility] Comment on above: Consult Start: 05-19-2022 Telephone encounter Miryam castellonof MARKET MANAGER.DIGITAL DATA ANALYST Work Phone: [facility] Comment on above: Appointment Start: 05-15-2022 Telephone encounter Roque Delgado MD Work Phone: [facility] Comment on above: Injections Start: 05-14-2022 End: 05-14-[address] Lizy Capone Work Phone: [facility] Work Phone: Start: 05-14-2022 End: 05-14-[address] Lizy Capone Work Phone: [facility] Phy Office 3rd Flr Start: 05-13-2022 End: 05-13-2022 Subsequent hospital visit by physician Tereso [facility] Work Phone: Radiology Comment on above: Fall, initial encoun ter [W19.XXXA] Start: 05-13-2022 End: 05-13-2022 Patient encounter procedure Jae Cagle MD Work Phone: General Surgery Comment on above: C. difficile colitis (Primary Dx); Rectal bleeding; Change in stool; Fall, initial encounter Start: 05-06-2022 Telephone encounter Noemy Ha carmina MARKET MANAGER.DIGITAL DATA ANALYST Work Phone: [facility] Comment on above: Results Start: 04-30-2022 Telephone encounter Miryam Beebe megan MARKET MANAGER.DIGITAL DATA ANALYST Work Phone: [facility] Comment on above: Results Start: 04-29-2022 End: 04-29-2022 Subsequent hospital visit by physician [employer] [employer] [facility] (I-Stat/1.5t) Work Phone: Radiology Comment on above: Lumbar spondylosis [ M47.816] Start: 04-28-2022 Telephone encounter Lizy lucero MD Work Phone: [facility] Comment on above: MRI request Start: 04-17-2022 Refill Lizy bran MD Work Phone: [facility] Comment on above: Refill Request Start: 04-16-2022 Refill Mulugeta ÁLVAREZ RN.DIGITAL DATA ANALYST Work Phone: [facility] Comment on above: Refill Request Start: 03-19-2022 End: 03-19-[address] Lizy Capone Work Phone: [facility] Work Phone: Start: 03-19-2022 End: 03-19-[address] Lizy Capone Work Phone: [facility] Phy Office 3rd Flr Start: 03-06-2022 End: 03-06-[address] Lizy Capone Work Phone: [facility], Specimen Start: 03-06-2022 End: 03-06-[address] Lizy Capone Work Phone: [facility] Start: 03-04-2022 End: 03-04-[address] [facility] Comment on above: Population Health Na vigation Outreach (HCC Gaps) Start: 03-04-2022 End: 03-04-[address] Lizy Capone Work Phone: [facility] Start: 02-13-2022 Non-patient / Non-visit Dr. Manjeet Capone Work Phone: [facility] Start: 02-13-2022 Orders Only Roque Delgado MD Work Phone: [facility] Comment on above: Lumbar spondylosis ( Primary Dx) requesting prescript ion Start: 01-30-2022 End: 01-30-2022 Patient encounter procedure Roque Delgado MD Work Phone: [facility] Comment on above: Lumbar spondylosis ( Primary Dx); Myofascial pain Start: 01-30-2022 Telephone encounter Roque Delgado MD Work Phone: [facility] Comment on above: Patient Update (Inje ction questions for lodi) Start: 01-28-2022 End: 01-28-[address] Lizy Capone Work Phone: [facility] Work Phone: Start: 01-28-2022 End: 01-28-[address] [facility] Start: 01-20-2022 Refill Lizy bran MD Work Phone: [facility] Comment on above: Refill Request Start: 01-14-2022 End: 01-14-[address] Lizy Capone Work Phone: [facility] Start: 01-14-2022 Telephone encounter Rebekah Bobo APRN.CNP Work Phone: [facility] Comment on above: error Start: 01-08-2022 Telephone encounter Miryam guzman APRN.DIGITAL DATA ANALYST Work Phone: [facility] Comment on above: Results (Labs ) Start: 01-08-2022 End: 01-08-2022 Subsequent hospital visit by physician Roque Delgado MD Work Phone: [facility] Comment on above: Lumbar spondylosis [ M47.816] Start: 01-07-2022 Telephone encounter Lizy lucero MD Work Phone: [facility] Comment on above: Faxed Referral Start: 01-06-2022 End: 01-06-2022 ambulatory Allison Lemon PT [facility] Comment on above: Lymphedema (Primary Dx) Start: 01-03-2022 End: 01-03-2022 Subsequent hospital visit by physician [facility] Work Phone: Radiology Comment on above: Abdominal distension [R14.0] Start: 01-02-2022 End: 01-02-2022 Patient encounter procedure Miryam Orozco APRN.DIGITAL DATA ANALYST Work Phone: [facility] Comment on above: Leg swelling (Primar y Dx); Shortness of breath ; Abdominal distension; Function kidney decreased Start: 01-01-2022 End: 01-01-2022 ambulatory Allison Lemon PT [facility] Comment on above: Lymphedema (Primary Dx) Start: 12-26-2021 End: 12-26-2021 ambulatory Avis Marrufo APRN.DIGITAL DATA ANALYST Work Phone: [facility] Comment on above: Lumbar spondylosis ( Primary Dx); Myofascial pain; Other chronic pain Start: 12-26-2021 End: 12-26-2021 Telemedicine consultation with patient Avis Marrufo APRN.DIGITAL DATA ANALYST Work Phone: [facility] Start: 12-26-2021 End: 12-26-[address] Lizy Capone Work Phone: [facility] Work Phone: Start: 12-26-2021 End: 12-26-[address] Lizy Capone Work Phone: [facility] Start: 12-25-2021 End: 12-25-2021 Subsequent hospital visit by physician Roque Delgado MD Work Phone: [facility] Comment on above: Lumbar spondylosis [ M47.816] Start: 12-22-2021 Refill Avis benitezld MARKET MANAGER.DIGITAL DATA ANALYST Work Phone: [facility] Comment on above: Refill Request Start: 12-19-2021 Non-patient / Non-visit Dr. Manjeet Capone Work Phone: [facility] Start: 12-19-2021 End: 12-19-[address] Lizy Capone Work Phone: [facility] Work Phone: Start: 12-19-2021 End: 12-19-[address] Lizy Capone Work Phone: [facility] Start: 12-19-2021 End: 12-19-[address] Lizy Capone Work Phone: [facility] Start: 12-16-2021 End: 12-16-2021 ambulatory Allison Lemon PT [facility] Comment on above: Lymphedema (Primary Dx) Start: 12-11-2021 End: 12-11-2021 ambulatory Allison Lemon PT [facility] Comment on above: Lymphedema (Primary Dx) Start: 12-03-2021 Orders Only Roque Delgado MD Work Phone: [facility] Comment on above: Lumbar spondylosis ( Primary Dx) Start: 12-02-2021 End: 12-02-2021 ambulatory Allison Lemon PT [facility] Comment on above: Lymphedema (Primary Dx) Start: 11-26-2021 Refill Lizy bran MD Work Phone: [facility] Comment on above: Refill Request Start: 11-22-2021 End: 11-22-2021 ambulatory Allison Pryor PT [facility] Comment on above: Lymphedema (Primary Dx); Lumbar spondylosis; Thoracic spine pain; Myofascial pain Start: 11-13-2021 Orders Only Lizy bran MD Work Phone: [facility] Comment on above: Lymphedema (Primary Dx) Start: 11-12-2021 End: 11-12-2021 ambulatory Jerod Flynn PT [facility] Comment on above: Chronic midline low back pain with sciatica, sciatica laterality unspecified (Primary Dx) Start: 11-05-2021 End: 11-05-2021 ambulatory Jerod Flynn PT [facility] Comment on above: Chronic midline low back pain with sciatica, sciatica laterality unspecified (Primary Dx) Start: 10-24-2021 Refill Lizy bran MD Work Phone: [facility] Comment on above: Refill Request Start: 10-22-2021 End: 10-22-2021 ambulatory Jerod Flynn PT [facility] Comment on above: Chronic midline low back pain with sciatica, sciatica laterality unspecified (Primary Dx) Start: 10-21-2021 Orders Only Lizy bran MD Work Phone: [facility] Comment on above: Population Health Na vigation Outreach ([facility]) Start: 10-01-2021 Refill Lizy bran MD Work Phone: [facility] Comment on above: Refill Request Start: 09-20-2021 End: 09-20-2021 Subsequent hospital visit by physician Xr [facility] Joseph Noe Work Phone: Radiology Comment on above: Lumbar spondylosis [ M47.816] Start: 09-19-2021 Telephone encounter Avis aquino APRN.DIGITAL DATA ANALYST Work Phone: [facility] Comment on above: Patient Update (Cons ult ) Start: 09-19-2021 End: 09-19-2021 Patient encounter procedure Avis Marrufo APRN.CNP Work Phone: [facility] Comment on above: Lumbar spondylosis ( Primary Dx); Other chronic pain; Thoracic spine pain; Myofascial pain Start: 09-17-2021 End: 09-17-[address] Lizy Capone Work Phone: [facility] Start: 09-12-2021 Refill Lizy bran MD Work Phone: [facility] Comment on above: Refill Request Start: 08-29-2021 Non-patient / Non-visit Dr. Manjeet Capone Work Phone: [facility] Start: 08-29-2021 End: 08-29-[address] Lizy Capone Work Phone: [facility] Start: 08-06-2021 End: 08-06-[address] Lizy Capone Work Phone: [facility] Start: 08-01-2021 Telephone encounter Lizy lucero MD Work Phone: [facility] Comment on above: Results - Ct Start: 07-26-2021 Refill Lizy bran MD Work Phone: [facility] Comment on above: Refill Request Start: 07-25-2021 End: 07-25-2021 Subsequent hospital visit by physician [facility] (I-Stat) Work Phone: Cat Scan Comment on above: Left upper quadrant abdominal pain [R10.12] Start: 07-18-2021 Telephone encounter Lizy lucero MD Work Phone: [facility] Comment on above: Results Start: 07-16-2021 End: 07-16-2021 Subsequent hospital visit by physician X[facility] Work Phone: Radiology Comment on above: SOB (shortness of br eath) [R06.02] Start: 07-16-2021 End: 07-16-2021 Patient encounter procedure Lizy Capone MD Work Phone: [facility] Comment on above: BENIGN HYPERTENSION( aka HTN) (Primary Dx); Insomnia, unspecified type; Hypothyroidism, acquired; Bilateral leg edema; Female stress incontinence; Dyspepsia; Upper back pain; Change in bowel function; SOB (shortness of breath); Rib pain on left side Procedures Date Procedure Procedure Detail Performing Clinician Start: 09-28-2024 Complete ultrasound of kidneys and bladder Miryam Serraf [employer] Work Phone: Start: 09-28-2024 Urine microscopy: red cells Miryam Kimballhof [employer] Work Phone: Start: 09-28-2024 Urnls dip stick/tabl et reagent auto microscopy Miryam Kimballhof [employer] Work Phone: Start: 09-28-2024 Blood count smear mc rscp w/mnl difrntl wbc count Miryam Kimballhof [employer] Work Phone: Start: 09-28-2024 Mean corpuscular hem oglobin concentration determination Miryam Kimballhof [employer] Work Phone: Start: 09-28-2024 Nucleated red blood cell count procedure Miryam Kimballhof [employer] Work Phone: Start: 09-28-2024 Platelet mean volume determination Miryam Kimballhof [employer] Work Phone: Start: 09-28-2024 Triacylglycerol lipa se measurement Miryam Kimballhof [employer] Work Phone: Start: 09-28-2024 X-ray of knee, one o r two views Miryam Kimballhof [employer] Work Phone: Start: 09-28-2024 CT of head without contrast Miryam [place] [employer] Work Phone: Start: 09-28-2024 X-ray of knee, one o r two views Miryam [place]ballhof [employer] Work Phone: Start: 09-06-2024 Procedure on wound Ashl ey T[place]hof [employer] Work Phone: Start: 08-22-2024 Blood count smear mc rscp w/mnl difrntl wbc count Miryam Tannhof [employer] Work Phone: Start: 08-22-2024 Mean corpuscular hem oglobin concentration determination Miryam [place] [employer] Work Phone: Start: 08-22-2024 Nucleated red blood cell count procedure Miryam [place] [employer] Work Phone: Start: 08-22-2024 Platelet mean volume determination Miryam [place] [employer] Work Phone: Start: 08-18-2024 Blood count smear mc rscp w/mnl difrntl wbc count Miryam Tannhof [employer] Work Phone: Start: 08-18-2024 Mean corpuscular hem oglobin concentration determination Miryam [place] [employer] Work Phone: Start: 08-18-2024 Nucleated red blood cell count procedure Miryam [place] [employer] Work Phone: Start: 08-18-2024 Platelet mean volume determination Miryam [place] [employer] Work Phone: Start: 08-16-2024 Blood count smear mc rscp w/mnl difrntl wbc count Miryam [place] [employer] Work Phone: Start: 08-16-2024 Mean corpuscular hem oglobin concentration determination Miryam [place] [employer] Work Phone: Start: 08-16-2024 Nucleated red blood cell count procedure Miryam [place]hof [employer] Work Phone: Start: 08-16-2024 Platelet mean volume determination Miryam [place] [employer] Work Phone: Start: 08-08-2024 Blood count smear mc rscp w/mnl difrntl wbc count Miryam Tannhof [employer] Work Phone: Start: 08-08-2024 Mean corpuscular hem oglobin concentration determination Miryam Tannhof [employer] Work Phone: Start: 08-08-2024 Nucleated red blood cell count procedure Miryam [place] [employer] Work Phone: Start: 08-08-2024 Platelet mean volume determination Miryam [place] [employer] Work Phone: Start: 08-01-2024 Blood count smear mc rscp w/mnl difrntl wbc count Miryam [place]hof [employer] Work Phone: Start: 08-01-2024 Mean corpuscular hem oglobin concentration determination Miryam [place]hof [employer] Work Phone: Start: 08-01-2024 Nucleated red blood cell count procedure Miryam [place]hof [employer] Work Phone: Start: 08-01-2024 Platelet mean volume determination Miryam [place]hof [employer] Work Phone: Start: 07-29-2024 Plain X-ray of tibia and fibula Miryam Serraf [employer] Work Phone: Start: 07-25-2024 Blood count smear mc rscp w/mnl difrntl wbc count Miryam [place]hof [employer] Work Phone: Start: 07-25-2024 Mean corpuscular hem oglobin concentration determination Miryam [place] [employer] Work Phone: Start: 07-25-2024 Nucleated red blood cell count procedure Miryam [place] [employer] Work Phone: Start: 07-25-2024 Platelet mean volume determination Miryam [place] [employer] Work Phone: Start: 07-18-2024 Blood count smear mc rscp w/mnl difrntl wbc count Miryam [place]hof [employer] Work Phone: Start: 07-18-2024 Mean corpuscular hem oglobin concentration determination Miryam [place]hof [employer] Work Phone: Start: 07-18-2024 Nucleated red blood cell count procedure Miryam [place]hof [employer] Work Phone: Start: 07-18-2024 Platelet mean volume determination Miryam [place] [employer] Work Phone: Start: 07-11-2024 Blood count smear mc rscp w/mnl difrntl wbc count Miryampoonam [place] [employer] Work Phone: Start: 07-11-2024 Mean corpuscular hem oglobin concentration determination Miryampoonam [place] [employer] Work Phone: Start: 07-11-2024 Nucleated red blood cell count procedure Miryam [place] [employer] Work Phone: Start: 07-11-2024 Platelet mean volume determination Miryam [place] [employer] Work Phone: Start: 07-04-2024 Blood count smear mc rscp w/mnl difrntl wbc count Miryampoonam [place]hof [employer] Work Phone: Start: 07-04-2024 Mean corpuscular hem oglobin concentration determination Miryam [place] [employer] Work Phone: Start: 07-04-2024 Nucleated red blood cell count procedure Miryam [place]hof [employer] Work Phone: Start: 07-04-2024 Platelet mean volume determination Miryam [place] [employer] Work Phone: Start: 06-27-2024 Blood count smear mc rscp w/mnl difrntl wbc count Miryampoonam [place]hof [employer] Work Phone: Start: 06-27-2024 Mean corpuscular hem oglobin concentration determination Miryam [place]hof [employer] Work Phone: Start: 06-27-2024 Nucleated red blood cell count procedure Miryam [place]hof [employer] Work Phone: Start: 06-27-2024 Platelet mean volume determination Imryampoonam Kimballhof [employer] Work Phone: Start: 06-20-2024 Blood count smear mc rscp w/mnl difrntl wbc count Miryampoonam [place]hof [employer] Work Phone: Start: 06-20-2024 Mean corpuscular hem oglobin concentration determination Miryam Orozco [employer] Work Phone: Start: 06-20-2024 Nucleated red blood cell count procedure Miryam Orozco [employer] Work Phone: Start: 06-20-2024 Platelet mean volume determination Miryam Orozco [employer] Work Phone: Start: 06-13-2024 Blood count smear mc rscp w/mnl difrntl wbc count Miryam Serraf [employer] Work Phone: Start: 06-13-2024 Mean corpuscular hem oglobin concentration determination Miryam Serraf [employer] Work Phone: Start: 06-13-2024 Nucleated red blood cell count procedure Miryam Orozco [employer] Work Phone: Start: 06-13-2024 Platelet mean volume determination Miryam Orozco [employer] Work Phone: Start: 06-13-2024 Serum inorganic phos phate measurement Miryam Orozco [employer] Work Phone: Start: 06-13-2024 Total cholesterol:HD L ratio measurement Miryam Serraf [employer] Work Phone: Start: 06-13-2024 Vitamin D, 25-hydrox y measurement Miryam Orozco [employer] Work Phone: Start: 06-10-2024 Estimated creatinine clearance Miryam Serraf [employer] Work Phone: Start: 06-10-2024 Serum inorganic phos phate measurement Miryam Orozco [employer] Work Phone: Start: 06-07-2024 Mean corpuscular hem oglobin concentration determination Miryam Kimballhof [employer] Work Phone: Start: 06-07-2024 Platelet mean volume determination Miryam Serraf [employer] Work Phone: Start: 06-06-2024 Plain x-ray of wrist As keily Orozco [employer] Work Phone: Start: 05-30-2024 Measurement of renal function Miryam Orozco [employer] Work Phone: Start: 05-27-2024 Blood count smear mc rscp w/mnl difrntl wbc count Miryam Orozco [employer] Work Phone: Start: 05-27-2024 Nucleated red blood cell count procedure Miryam Orozco [employer] Work Phone: Start: 05-23-2024 Videoswallow Miryam Beebe nhof [employer] Work Phone: Start: 05-20-2024 Measurement of occul t blood in stool specimen using immunoassay Miryam Orozco [employer] Work Phone: Start: 05-19-2024 Human leukocyte anti gen B27 antigen phenotyping Miryam Orozco [employer] Work Phone: Start: 05-19-2024 Total iron binding c apacity measurement Miryam Orozco [employer] Work Phone: Start: 05-19-2024 X-ray of thoracic sp ine, three views Miryam Orozco [employer] Work Phone: Start: 05-18-2024 Glucose measurement, blood Nicol Judge MD Work Phone: Start: 05-18-2024 Glucose measurement, blood Nicol Judge MD Work Phone: Start: 05-18-2024 Glucose measurement, blood Nicol Judge MD Work Phone: Start: 05-18-2024 Assay of magnesium Dakotah Bhardwaj MARKET MANAGER-[employer]ITAL DATA ANALYST Work Phone: Start: 05-17-2024 Glucose measurement, blood Nicol Judge MD Work Phone: Start: 05-17-2024 Glucose measurement, blood Nicol Judge MD Work Phone: Start: 05-17-2024 SPEECH MODIFIED TANNA UM SWALLOW Heladio Prather MD Work Phone: Start: 05-17-2024 Radiologic exam swal low function contrast study Heladio Prather MD Work Phone: Start: 05-17-2024 Glucose measurement, blood Nicol Judge MD Work Phone: Start: 05-17-2024 Assay of magnesium Dakotah jodie L Infantino MARKET MANAGER-DIGITAL DATA ANALYST Work Phone: Start: 05-17-2024 Glucose measurement, blood Nicol Judge MD Work Phone: Start: 05-16-2024 Glucose measurement, blood Nicol Judge MD Work Phone: Start: 05-16-2024 Glucose measurement, blood Nicol Judge MD Work Phone: Start: 05-16-2024 Glucose measurement, blood Nicol Judge MD Work Phone: Start: 05-16-2024 Assay of magnesium Dakotah jodie L Infantino MARKET MANAGER-DIGITAL DATA ANALYST Work Phone: Start: 05-15-2024 Glucose measurement, blood Nicol Judge MD Work Phone: Start: 05-15-2024 Glucose measurement, blood Kevon Lyon MD Work Phone: Start: 05-15-2024 Infectious agent dna /rna influenza 1st 2 types Heladio Prather MD Work Phone: Start: 05-15-2024 Sars-cov-2 detection by dna/rna Heladio Prather MD Work Phone: Start: 05-15-2024 Glucose measurement, blood Kevon Lyon MD Work Phone: Start: 05-15-2024 Assay of magnesium Dakotah jodie L Infantino MARKET MANAGER-DIGITAL DATA ANALYST Work Phone: Start: 05-15-2024 Glucose measurement, blood Kevon Lyon MD Work Phone: Start: 05-14-2024 Glucose measurement, blood Kevon Lyon MD Work Phone: Start: 05-14-2024 Glucose measurement, blood Kevon Lyon MD Work Phone: Start: 05-14-2024 Assay of magnesium Dakotah feliciano Gerry Infantino MARKET MANAGER-DIGITAL DATA ANALYST Work Phone: Start: 05-13-2024 Glucose measurement, blood Kevon Lyon MD Work Phone: Start: 05-13-2024 Glucose measurement, blood Kevon Lyon MD Work Phone: Start: 05-13-2024 FLEXIBLE ENDOSCOPIC EVALUATION OF SWALLOWING Jamaal Khalil MD Work Phone: Start: 05-13-2024 Glucose measurement, blood Kevon Lyon MD Work Phone: Start: 05-13-2024 Glucose measurement, blood Kevon Lyon MD Work Phone: Start: 05-13-2024 Assay of magnesium Dakotah jodie Gerry Infantino MARKET MANAGER-DIGITAL DATA ANALYST Work Phone: Start: 05-13-2024 Glucose measurement, blood Kevon Lyon MD Work Phone: Start: 05-12-2024 Glucose measurement, blood Kevon Lyon MD Work Phone: Start: 05-12-2024 Glucose measurement, blood Kevon Lyon MD Work Phone: Start: 05-12-2024 CARDIAC RHYTHM (SCANNED) Other Other OT Start: 05-12-2024 CONTINUOUS CARDIAC MONITORING STRIP Other Other Start: 05-12-2024 Glucose measurement, blood Kevon Lyon MD Work Phone: Start: 05-12-2024 Assay of magnesium Amanda Curry MD Work Phone: Start: 05-12-2024 Lipid panel Heladio dent MD Work Phone: Start: 05-11-2024 Glucose measurement, blood Kevon Lyon MD Work Phone: Start: 05-11-2024 Echo tthrc r-t 2d w/wom-mode compl spec&colr d Jamaal J Khalil MD Work Phone: Start: 05-11-2024 Glucose measurement, blood Kevon Lyon MD Work Phone: Start: 05-11-2024 Glucose measurement, blood Kevon Lyon MD Work Phone: Start: 05-11-2024 Assay of folic acid serum Vy Curry MD Work Phone: Start: 05-10-2024 CONTINUOUS CARDIAC MONITORING STRIP Other Other Start: 05-10-2024 Blood count complete automated Pratik Ennis MARKET MANAGER-DIGITAL DATA ANALYST Work Phone: Start: 05-10-2024 Glucose measurement, blood Ronn Barahona MD Work Phone: Start: 05-09-2024 Assay of ferritin Vy Curry MD Work Phone: Start: 05-09-2024 Glucose measurement, blood Ronn Barahona MD Work Phone: Start: 05-09-2024 Dup-scan xtr veins unilateral/limited study Oralia Stantoneder MARKET MANAGER-DIGITAL DATA ANALYST Work Phone: Start: 05-09-2024 GENERAL PROCEDURE Clare Adhikari MD Work Phone: Start: 05-09-2024 Culture bacterial bl ood aerobic w/id isolates Karrie Sims MARKET MANAGER-DIGITAL DATA ANALYST Work Phone: Start: 05-09-2024 Glucose measurement, blood Ronn Barahona MD Work Phone: Start: 05-09-2024 Blood gases any comb ination ph pco2 po2 co2 hco3 Karrie Sims MARKET MANAGER-DIGITAL DATA ANALYST Work Phone: Start: 05-09-2024 End: 05-09-2024 Assay of magnesium Jono L Infantin o MARKET MANAGER-DIGITAL DATA ANALYST Work Phone: Start: 05-09-2024 Mri spinal canal cer vical w/o & w/contr matrl Nelida Brock MD Work Phone: Start: 05-08-2024 Glucose measurement, blood Pratik Young MD Work Phone: Start: 05-08-2024 Glucose measurement, blood Pratik Young MD Work Phone: Start: 05-08-2024 Inf agent det nuclei c acid clostridium amp probe Qijaswant Sims MARKET MANAGER-DIGITAL DATA ANALYST Work Phone: Start: 05-08-2024 EXTRA MICRO Qijaswant Sims MARKET MANAGER-DIGITAL DATA ANALYST Work Phone: Start: 05-08-2024 URINALYSIS REFLEX TO CULTURE Qijaswant Sims MARKET MANAGER-DIGITAL DATA ANALYST Work Phone: Start: 05-08-2024 Urnls dip stick/tabl et reagent auto microscopy Qijaswant Sims MARKET MANAGER-DIGITAL DATA ANALYST Work Phone: Start: 05-08-2024 Retired procedure Milton Young MD Work Phone: Start: 05-08-2024 Blood gases any comb ination ph pco2 po2 co2 hco3 Karrie Sims MARKET MANAGER-DIGITAL DATA ANALYST Work Phone: Start: 05-08-2024 Potassium serum plasma/whole blood Pratik Ennis MARKET MANAGER-[facility] Work Phone: Start: 05-08-2024 Glucose measurement, blood Pratik Young MD Work Phone: Start: 05-08-2024 Radiologic exam ches t single view Karrie Sims MARKET MANAGER-DIGITAL DATA ANALYST Work Phone: Start: 05-08-2024 Smr prim src gram/gi emsa stain bct fungi/cell Karrie Sims MARKET MANAGER-DIGITAL DATA ANALYST Work Phone: Start: 05-08-2024 Glucose measurement, blood Pratik Young MD Work Phone: Start: 05-08-2024 Assay of phosphorus inorganic Pratik Ennis MARKET MANAGER-[facility] Work Phone: Start: 05-08-2024 Ecg routine ecg w/le ast 12 lds trcg only w/o i&r Pratik Ennis MARKET MANAGER-DIGITAL DATA ANALYST Work Phone: Start: 05-08-2024 Assay of magnesium Dakotah jodie Bhardwaj MARKET MANAGER-DIGITAL DATA ANALYST Work Phone: Start: 05-08-2024 Glucose measurement, blood Pratik Young MD Work Phone: Start: 05-07-2024 Assay of phosphorus inorganic Jono Bhardwaj MARKET MANAGER-DIGITAL DATA ANALYST Work Phone: Start: 05-07-2024 Glucose measurement, blood Pratik Young MD Work Phone: Start: 05-07-2024 Assay of magnesium Marian Sims MARKET MANAGER-DIGITAL DATA ANALYST Work Phone: Start: 05-07-2024 Glucose measurement, blood Pratik Young MD Work Phone: Start: 05-07-2024 Blood count hematocrit Karrie Sims MARKET MANAGER-DIGITAL DATA ANALYST Work Phone: Start: 05-07-2024 CONTINUOUS CARDIAC MONITORING STRIP Other Other Start: 05-07-2024 Radiologic exam ches t single view Karrie Sims MARKET MANAGER-DIGITAL DATA ANALYST Work Phone: Start: 05-07-2024 End: 05-07-2024 Transfusion of packed red blood cells Karrie Sims MARKET MANAGER-DIGITAL DATA ANALYST Work Phone: Start: 05-07-2024 Blood count complete automated Qizcary Sims MARKET MANAGER-DIGITAL DATA ANALYST Work Phone: Start: 05-07-2024 Glucose measurement, blood Pratik Young MD Work Phone: Start: 05-07-2024 End: 05-07-2024 Creatine kinase total Harish Parry MD Work Phone: Start: 05-07-2024 SCHISTOCYTES Harish Parry MD Work Phone: Start: 05-07-2024 Radiologic exam abdo men 1 view Harish Parry MD Work Phone: Start: 05-07-2024 Glucose measurement, blood Pratik Young MD Work Phone: Start: 05-07-2024 Ecg routine ecg w/le ast 12 lds trcg only w/o i&r Pratik Ennis MARKET MANAGER-DIGITAL DATA ANALYST Work Phone: Start: 05-07-2024 End: 05-07-2024 Transfusion of packed red blood cells Harish Parry MD Work Phone: Start: 05-07-2024 Blood count complete automated Jono Bhardwaj MARKET MANAGER-DIGITAL DATA ANALYST Work Phone: Start: 05-07-2024 Glucose measurement, blood Pratik Young MD Work Phone: Start: 05-06-2024 Mri brain brain stem w/o w/contrast material Danielle OCHOA Work Phone: Start: 05-06-2024 Ecg routine ecg w/le ast 12 lds trcg only w/o i&r Pratik Ennis MARKET MANAGER-DIGITAL DATA ANALYST Work Phone: Start: 05-06-2024 Heparin assay Karrie Sims MARKET MANAGER-DIGITAL DATA ANALYST Work Phone: Start: 05-06-2024 Glucose measurement, blood Pratik Young MD Work Phone: Start: 05-06-2024 Radiologic examinati on pelvis 1/2 views Danielle OCHOA Work Phone: Start: 05-06-2024 Creatinine blood Karrie Sims MARKET MANAGER-DIGITAL DATA ANALYST Work Phone: Start: 05-06-2024 Glucose measurement, blood Pratik Young MD Work Phone: Start: 05-06-2024 Eeg extended monitor ing [id number] minutes Paulino Whitehead MD Work Phone: Start: 05-06-2024 Fibrinogen activity Qiz cary Sims MARKET MANAGER-DIGITAL DATA ANALYST Work Phone: Start: 05-06-2024 Glucose measurement, blood Pratik Young MD Work Phone: Start: 05-06-2024 EXTRA LAVENDER TOP Connor marisophia Young MD Work Phone: Start: 05-06-2024 EXTRA TUBES Pratik Young MD Work Phone: Start: 05-06-2024 End: 05-06-2024 Assay of magnesium Pratik Ennis MARKET MANAGER-DIGITAL DATA ANALYST Work Phone: Start: 05-05-2024 Glucose measurement, blood Pratik Young MD Work Phone: Start: 05-05-2024 Hemodialysis Josefina Cary MD Work Phone: Start: 05-05-2024 PROCEDURE - LUMBAR PUNCTURE Oralia Dede Usman MARKET MANAGER-DIGITAL DATA ANALYST Work Phone: Start: 05-05-2024 Glucose measurement, blood Pratik Young MD Work Phone: Start: 05-05-2024 Radiologic exam ches t single view Oralia Dede Usman MARKET MANAGER-DIGITAL DATA ANALYST Work Phone: Start: 9 End: 05-05-2024 Cell count misc body fluids w/differential count Oralia M Romyeder MARKET MANAGER-DIGITAL DATA ANALYST Work Phone: Start: 05-05-2024 Cytp concentration s sonia & interpretation Oralia M Ichrist MARKET MANAGER-DIGITAL DATA ANALYST Work Phone: Start: 05-05-2024 Concentration infect ious agents Oralia Aguayo Romyrist MARKET MANAGER-DIGITAL DATA ANALYST Work Phone: Start: 05-05-2024 Glucose body fluid o ther than blood Oralia Doughertyt MARKET MANAGER-DIGITAL DATA ANALYST Work Phone: Start: 05-05-2024 Calcium ionized Pingl sosa Dede Romyrisjustyn MARKET MANAGER-DIGITAL DATA ANALYST Work Phone: Start: 05-05-2024 CHRONIC HEPATITIS PANEL(DIALYSIS, ESRD, JOSE) Josefina Cary MD Work Phone: Start: 05-05-2024 Hepatitis b surf ant ibody hbsab Josefina Cary MD Work Phone: Start: 05-05-2024 End: 05-05-2024 Iaad ia hepatitis b surface antigen Josefina Cary MD Work Phone: Start: 05-05-2024 Glucose measurement, blood Pratik Young MD Work Phone: Start: 05-05-2024 RT COMMUNICATION ORDER Oralia Mary MARKET MANAGER-DIGITAL DATA ANALYST Work Phone: Start: 05-05-2024 End: 05-05-2024 Smr prim src gram/giemsa stain bct fungi/cell Oralia Mary MARKET MANAGER-DIGITAL DATA ANALYST Work Phone: Start: 05-05-2024 Calcium ionized Pinggerry swan Dede Mary MARKET MANAGER-DIGITAL DATA ANALYST Work Phone: Start: 05-05-2024 Blood gases any comb ination ph pco2 po2 co2 hco3 Kindra Gannon MD Work Phone: Start: 05-05-2024 Ecg routine ecg w/le ast 12 lds trcg only w/o i&r Pratik Ennis MARKET MANAGER-DIGITAL DATA ANALYST Work Phone: Start: 05-05-2024 Ct head/brain w/o co ntrast material Paulino Whitehead MD Work Phone: Start: 05-05-2024 Creatine kinase total K toña Whitehead MD Work Phone: Start: 05-05-2024 Drug screen quantita tive vancomycin Jennifer Ashley Cloud [facility] Start: 05-05-2024 Radiologic exam abdo men 1 view Paulino Whitehead MD Work Phone: Start: 05-04-2024 ABORH TYPE RECONFIRMATION Shereen K Robeson DO Work Phone: Start: 05-04-2024 Culture bct isol&prs mptv id isolate ea urine Paulino Whitehead MD Work Phone: Start: 05-04-2024 EXTRA MICRO Paulino goode MD Work Phone: Start: 05-04-2024 URINALYSIS REFLEX TO CULTURE Paulino Whitehead MD Work Phone: Start: 05-04-2024 Radiologic exam ches t single view Pratik Ennis MARKET MANAGER-DIGITAL DATA ANALYST Work Phone: Start: 05-04-2024 Radiologic exam abdo men 1 view Pratik Ennis MARKET MANAGER-DIGITAL DATA ANALYST Work Phone: Start: 05-04-2024 Antibody screen NICOL SHAIKH Comment on above: Performed By: #### M GO, CHM7, IPB, CKB, TRIG, LDO #### [facility] ([facility]) [address] [place] [address] Start: 05-04-2024 Assay of ammonia Arik Ennis MARKET MANAGER-DIGITAL DATA ANALYST Work Phone: Start: 05-04-2024 Blood gases any comb ination ph pco2 po2 co2 hco3 Pratik Ennis MARKET MANAGER-DIGITAL DATA ANALYST Work Phone: Start: 05-04-2024 RAPHAEL AURIS SCREEN BY PCR Pratik Ennis MARKET MANAGER-DIGITAL DATA ANALYST Work Phone: Start: 05-04-2024 CBC AND ELECTRONIC DIFF Pratik Ennis MARKET MANAGER-DIGITAL DATA ANALYST Work Phone: Start: 05-04-2024 Complete blood count with white cell differential, automated Pratik Ennis MARKET MANAGER-DIGITAL DATA ANALYST Work Phone: Start: 05-04-2024 Hepatic function panel Pratik Ennis MARKET MANAGER-DIGITAL DATA ANALYST Work Phone: Start: 05-04-2024 Iadna respiratry pro be & rev trnscr 3-5 targets Pratik Ennis MARKET MANAGER-DIGITAL DATA ANALYST Work Phone: Start: 05-04-2024 MANUAL DIFF Pratik Ortiz Raymon MARKET MANAGER-DIGITAL DATA ANALYST Work Phone: Start: 05-04-2024 PREPARE TO TRANSFUSE RED BLOOD CELLS Harish Parry MD Work Phone: Start: 05-04-2024 Glucose measurement, blood Pratik Young MD Work Phone: Start: 05-03-2024 Complete ultrasound of kidneys and [facility] Work Phone: Start: 05-02-2024 CT of head without contrast [facility] Work Phone: Start: 05-02-2024 Plain chest X-ray [facility] Work Phone: Start: 05-01-2024 Blood culture [facility] Work Phone: Start: 05-01-2024 Clostridium difficil e detection [facility] [employer] Work Phone: Start: 05-01-2024 Gram stain microscopy A poonam [facility] [employer] Work Phone: Start: 05-01-2024 Legionella pneumophi la antigen assay Miryam [facility] [employer] Work Phone: Start: 05-01-2024 Nucleic acid assay [facility] Work Phone: Start: 05-01-2024 Respiratory microbia l culture [facility] [employer] Work Phone: Start: 05-01-2024 Streptococcus pneumo niae antigen assay Miryam [facility] [employer] Work Phone: Start: 05-01-2024 Urine culture [facility] Work Phone: Start: 05-01-2024 Miryam Beebe nhof [employer]KEE[employer] Work Phone: Start: 05-01-2024 End: 05-01-2024 Plain chest X-ray Miryampoonam Orozco [employer] Work Phone: Start: 01-28-2024 PFIZER-BIONTECH COVI D-19 VACCINE AGE 12+ YR (COMIRNATY) Miryam Orozco MARKET MANAGER.DIGITAL DATA ANALYST Work Phone: Start: 07-22-2023 Adult depression scr eening assessment Roque Delgado MD Work Phone: Start: 06-07-2023 CT of abdomen and pe lvis with oral contrast Start: 05-18-2023 US OTHER-INJECTION ( POC) DONATO USE ONLY Roque Delgado MD Work Phone: Start: 03-31-2023 Radiologic exam ches t 2 views Piedad Musa Wen PA-C Work Phone: Start: 01-15-2023 End: 01-15-2023 Radex shoulder complete minimum 2 views Roque Delgado MD Work Phone: Start: 07-31-2022 Radex foot complete minimum 3 views Roque Delgado MD Work Phone: Start: 07-25-2022 Plain chest X-ray Dr. Dede Capone Work Phone: Start: 05-13-2022 Radex elbow complete minimum 3 views Jae Cagle MD Work Phone: Start: 04-29-2022 Mri spinal canal tho racic w/o contrast matrl Avis Marrufo MARKET MANAGER.DIGITAL DATA ANALYST Work Phone: Start: 01-08-2022 End: 01-08-2022 Njx dx/ther agt pvrt facet jt lmbr/sac 1 level Roque Delgado MD Work Phone: Start: 01-03-2022 Us abdominal real ti me w/image documentation Miryam Orozco MARKET MANAGER.DIGITAL DATA ANALYST Work Phone: Start: 12-25-2021 End: 12-25-2021 Njx dx/ther agt pvrt facet jt lmbr/sac 1 level Roqeu Delgado MD Work Phone: Start: 06-17-2022 Radex spine lumbosac ral minimum 4 views Avis Marrufo MARKET MANAGER.DIGITAL DATA ANALYST Work Phone: Start: 09-19-2021 Adult depression scr eening assessment Avis Españafield MARKET MANAGER.DIGITAL DATA ANALYST Work Phone: Start: 07-25-2021 Ct abdomen & pelvis w/o contrast material Lizy Capone MD Work Phone: Start: 07-16-2021 Radex ribs uni w/pos teroant ch minimum 3 views Lizy Capone MD Work Phone: Start: 11-25-2018 Adult depression scr eening assessment Lizy Capone MD Work Phone: Bacteria identified in Urine by Culture Dr. Lizy Capone Work Phone: H/O: surgery Miryam Orozco [employer] Work Phone: H/O: surgery Dr. Gonzalo paez MD Urine culture Dr. Lizy white Work Phone: Urine culture Dr. Lizy white Work Phone: Urine culture Dr. Lizy white Work Phone: Plan of Treatment Date Care Activity Detail Author Start: 09-16-2027 Diabetes Screening Diabetes Screening [facility] Start: 09-01-2027 Tetanus vaccination [facility] Start: 09-01-2027 Urine microalbumin profile [facility] Start: 08-23-2027 Diabetes Screening Diabetes Screening [facility] Start: 05-17-2027 Diabetes Screening Diabetes Screening [facility] Start: 12-13-2026 Diabetes Screening Diabetes Screening [facility] Start: 07-15-2026 Diabetes Screening Diabetes Screening [facility] Start: 01-15-2026 Diabetes Screening Diabetes Screening [facility] Start: 12-22-2025 Diabetes Screening Diabetes Screening [facility] Start: 09-26-2025 DIABETES SCREEN DIABETES SCREEN [facility] Start: 09-26-2025 Diabetes Screening Diabetes Screening [facility] Start: 05-17-2025 Finding of potassium level (finding) [facility] Start: 05-05-2025 Thyroid stimulating hormone measurement [facility] Start: 01-06-2025 DIABETES SCREEN DIABETES SCREEN [facility] Start: 10-24-2024 End: 10-24-2024 Patient encounter procedure 10/24/2024 2:00 PM EDT Office Visit [facility] [address] [place] [id number] Lizy Capone MD [address] [place] [id number] 1 month follow up [facility] Comment on above: 1 month follow up Start: 10-22-2024 End: 01-21-2025 CBC panel - Blood by Automated count COMPLETE BLOOD COUNT Lab Routine BENIGN HYPERTENSION(aka HTN) Anemia in chronic kidney disease, unspecified CKD stage CKD (chronic kidney disease) stage 4, GFR 15-29 ml/min (HCC) Expected: 10/22/2024 (Approximate), Expires: 01/21/2025 [facility] Comment on above: Expected: 10/22/2024 (Approximate), Expi res: 01/21/2025 Start: 10-22-2024 End: 01-21-2025 Comprehensive metabolic 2000 panel - Serum or Plasma COMPREHENSIVE METABOLIC PANEL Lab Routine BENIGN HYPERTENSION(aka HTN) CKD (chronic kidney disease) stage 4, GFR 15-29 ml/min (HCC) Expected: 10/22/2024 (Approximate), Expires: 01/21/2025 [facility] Work Phone: Comment on above: Expected: 10/22/2024 (Approximate), Expi res: 01/21/2025 Start: 09-28-2024 Verification routine [facility] Start: 09-28-2024 Admission procedure [facility] Start: 09-28-2024 Hospital admission, emergency, from emergency room, medical nature [facility] Start: 09-28-2024 [facility] Start: 09-28-2024 [facility] Start: 09-28-2024 End: 09-28-2024 [facility] Start: 09-22-2024 End: 09-22-2024 Patient encounter procedure 09/22/2024 2:20 PM EDT Office Visit [facility] Nydia Ruiz [address] [place] [id number] Lizy Capone MD [address] [place] [address] [facility]: [facility]/u Start: 09-15-2024 End: 12-15-2024 Natriuretic peptide.B prohormone N-Terminal [Mass/volume] in Serum or Plasma [facility] Work Phone: Comment on above: Expected: 09/15/2024, Expires: Start: 09-06-2024 Patient discharge [facility] Start: 08-22-2024 End: 08-22-2024 Patient encounter procedure 08/22/2024 1:20 PM EDT Office [facility] [address] [facility] [place] [address] Lizy Capone MD [address] [place] [place] [address] [facility] Comment on above: 6 month follow up Start: 08-05-2024 End: 08-05-2024 Patient encounter procedure 08/05/2024 10:00 AM EDT Office Visit [facility] [address] [place] [address] Miryam Orozco APRN.DIGITAL DATA ANALYST [address] [place] [address] [facility] Comment on above: 6 month follow up Start: 07-29-2024 [facility] Start: 07-28-2024 End: 10-27-2024 Comprehensive metabolic 2000 panel - Serum or Plasma COMPREHENSIVE METABOLIC PANEL Lab Routine BENIGN HYPERTENSION(aka HTN) Expected: 07/28/2024, Expires: 10/27/2024 [facility] Work Phone: Comment on above: Expected: 07/28/2024, Expires: Start: 07-28-2024 Covid-19 Vaccine ( season) Covid-19 Vaccine () [facility] Start: 07-28-2024 End: 10-27-2024 Lipid 1996 panel - Serum or Plasma LIPID PANEL BASIC Lab Routine Hyperlipidemia LDL goal <100 Expected: 07/28/2024, Expires: 10/27/2024 [facility] Comment on above: Expected: 07/28/2024, Expires: Start: 07-28-2024 End: 10-27-2024 Thyrotropin [Units/volume] in Serum or Plasma THYROID STIMULATING HORMONE Lab Routine Hypothyroidism, acquired Expected: 07/28/2024, Expires: 10/27/2024 [facility] Comment on above: Expected: 07/28/2024, Expires: Start: 07-28-2024 End: 10-27-2024 Thyroxine (T4) free [Mass/volume] in Serum or Plasma T4 FREE/FREE THYROXINE Lab Routine Hypothyroidism, acquired Expected: 07/28/2024, Expires: 10/27/2024 [facility] Comment on above: Expected: 07/28/2024, Expires: Start: 07-21-2024 Anxiety Screening Anxiety Screening [facility] Start: 07-21-2024 Covid-19 Vaccine () Covid-19 Vaccine () [facility] Comment on above: Postponed from 12/05/2022 (Declined at t his time) Start: 07-21-2024 Depression Screening Depression Screening [facility] Start: 07-21-2024 Shingrix Vaccine (2 of 3) Shingrix Vaccine (2 of 3) [facility] Comment on above: Postponed from 07/12/2009 (Declined at t his time) Start: 07-16-2024 DIABETES SCREEN DIABETES SCREEN [facility] Start: 06-10-2024 Patient discharge [facility] Start: 06-10-2024 Referral to health and fitness instructor [facility] Start: 06-09-2024 Catheterization of vein [facility] Start: 06-08-2024 Application of elastic bandage [facility] Start: 06-08-2024 [facility] Start: 06-06-2024 Application of ice collar, cap or bag [facility] Start: 05-27-2024 [facility] Start: 05-20-2024 Following clinical pathway protocol [facility] Start: 05-20-2024 Administration of blood product [facility] Start: 05-20-2024 Administration of blood product [facility] Start: 05-18-2024 Seizure precautions [facility] Start: 05-18-2024 Admission procedure [facility] Start: 05-18-2024 Measuring intake and output [facility] Start: 05-18-2024 Patient referral to dietitian [facility] Start: 05-18-2024 Referral to service [facility] Start: 05-18-2024 Vital signs measurements [facility] Start: 05-18-2024 [facility] Start: 05-18-2024 Referral to occupational therapist [facility] Start: 05-18-2024 Speech therapy assessment [facility] Start: 05-08-2024 Complete blood count Hemoglobin/Hematocrit [facility] Start: 05-08-2024 Creatinine measurement Serum Creatinine [facility] Start: 05-04-2024 Patient discharge [facility] Start: 05-04-2024 Care of hemodialysis equipment [facility] Start: 05-04-2024 Hemodialysis care [facility] Start: 05-04-2024 [facility] Start: 05-04-2024 [facility] Start: 05-04-2024 Administration of blood product [facility] Start: 05-03-2024 End: 05-04-2024 [facility] Start: 05-02-2024 [facility] Start: 05-01-2024 Following clinical pathway protocol [facility] Start: 05-01-2024 Assessment of risk of venous thromboembolism [facility] Start: 05-01-2024 Catheterization of vein [facility] Start: 05-01-2024 Consultation [facility] Start: 05-01-2024 Continuous pulse oximetry [facility] Start: 05-01-2024 Inhalation therapy procedure [facility] Start: 05-01-2024 Insertion of catheter into peripheral vein [facility] Start: 05-01-2024 Measuring intake and output [facility] Start: 05-01-2024 Notification of physician [facility] Start: 05-01-2024 Providing care according to standard [facility] Start: 05-01-2024 Referral to health and fitness instructor [facility] Start: 05-01-2024 Referral to occupational therapist [facility] Start: 05-01-2024 Referral to service [facility] Start: 05-01-2024 Vital signs measurements [facility] Start: 05-01-2024 End: 05-01-2024 [facility] Start: 05-01-2024 Airway suction technique [facility] Start: 05-01-2024 Admission procedure [facility] Start: 05-01-2024 Patient referral to dietitian [facility] Start: 05-01-2024 [facility] Start: 04-15-2024 Annual PCP Team Chronic Disease Visit Annual PCP Team Chronic Disease Visit [facility] Start: 04-06-2024 Advance Directive Discussion Advance Directive Discussion [facility] Start: 03-24-2024 End: 03-24-2024 Patient encounter procedure 03/24/2024 8:45 AM EST Office Visit [facility] [address] [place] [address] Weston Lowe APRN.DIGITAL DATA ANALYST [address] [place] [address] 3 month refill [facility] Comment on above: 3 month refill Start: 03-16-2024 End: 03-16-2024 Patient encounter procedure 03/16/2024 11:20 AM EST Office Visit [facility] [address] [place] [address] Miryam Orozco APRN.DIGITAL DATA ANALYST [address] [place] [address] Hosp Follow up/ discharge 03/02/24 Family Nydia Ruiz Comment on above: Hosp Follow up/ discharge 03/02/24 Start: 02-11-2024 End: 02-11-2024 Patient encounter procedure 02/11/2024 9:20 AM EST Office Visit Family Medicine [facility]seph [address] [place] [address] Miryam Orozco APRN.DIGITAL DATA ANALYST [address] [place] [address] 3 month follow up [facility] Comment on above: 3 month follow up Start: 02-01-2024 End: 02-01-2024 Patient encounter procedure 02/01/2024 8:45 AM EDT Office Visit Orthopaedics [address] [place] [address] Grzegorz Becerril MD [address] [place] [address] 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, M19.012] Orthopaedics Comment on above: 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, M19.012] Start: 01-30-2024 End: 04-30-2024 Thyrotropin [Units/volume] in Serum or Plasma THYROID STIMULATING HORMONE Lab Routine Hypothyroidism, acquired Expected: 01/30/2024, Expires: 04/30/2024 [facility] Work Phone: Comment on above: Expected: 01/30/2024, Expires: Start: 01-30-2024 End: 04-30-2024 Thyroxine (T4) free [Mass/volume] in Serum or Plasma T4 FREE/FREE THYROXINE Lab Routine Hypothyroidism, acquired Expected: 01/30/2024, Expires: 04/30/2024 [facility] Comment on above: Expected: 01/30/2024, Expires: Start: 01-28-2024 End: 01-28-2024 Patient encounter procedure 01/28/2024 9:00 AM EDT Office Visit Family Nydia Ruiz [address] [facility] [place] [address] Miryam Orozco APRN.DIGITAL DATA ANALYST [address] [facility] [place] [address] 6 month follow up Family Nydia Ruiz Comment on above: 6 month follow up Start: 01-21-2024 End: 04-21-2024 Comprehensive metabolic 2000 panel - Serum or Plasma COMPREHENSIVE METABOLIC PANEL Lab Routine CKD (chronic kidney disease) stage 4, GFR 15-29 ml/min ([facility]) Expected: 01/21/2024, Expires: 04/21/2024 [facility] Work Phone: Comment on above: Expected: 01/21/2024, Expires: Start: 01-21-2024 End: 04-21-2024 Lipid 1996 panel - Serum or Plasma LIPID PANEL BASIC Lab Routine Hyperlipidemia LDL goal <100 Expected: 01/21/2024, Expires: 04/21/2024 [facility] Work Phone: Comment on above: Expected: 01/21/2024, Expires: Start: 01-21-2024 End: 04-21-2024 Thyrotropin [Units/volume] in Serum or Plasma THYROID STIMULATING HORMONE Lab Routine Hypothyroidism, acquired Expected: 01/21/2024, Expires: 04/21/2024 [facility] Work Phone: Comment on above: Expected: 01/21/2024, Expires: Start: 01-16-2024 Serum Creatinine Serum Creatinine [facility] Start: 12-23-2023 Annual PCP Team Chronic Disease Visit Annual PCP Team Chronic Disease Visit [facility] Start: 12-23-2023 BP Controlled (<130/80) BP Controlled (<130/80) [facility] in Start: 12-23-2023 Serum Creatinine Serum Creatinine [facility] Start: 12-17-2023 End: 12-17-2023 Follow-up encounter 12/17/2023 9:30 AM EDT [facility] [address] [place] [address] Weston Lowe APRN.DIGITAL DATA ANALYST [address] [place] [address] RFA follow up [facility] Comment on above: RFA follow up Start: 12-17-2023 End: 12-17-2023 Patient encounter procedure 12/17/2023 8:45 AM EDT Office Visit [facility] [address] [place] [address] Roque Delgado MD [address] [facility] [address] [place] [address] RFA follow up [facility] Comment on above: RFA follow up Start: 12-06-2023 Covid-19 Vaccine () Covid-19 Vaccine () [facility] Start: 12-06-2023 Covid-19 Vaccine () Covid-19 Vaccine () [facility] Start: 12-06-2023 Influenza vaccination Influenza Vaccine (#1) [facility] Start: 12-04-2023 End: 12-04-2023 Patient encounter procedure 12/04/2023 9:00 AM EDT Office Visit OB/Gynecology [address] [place] [address] Starr Solano MD [address] [place] [address] Consult IUD removal [facility]Gy[facility]cology Comment on above: Consult IUD removal Start: 11-16-2023 End: 11-16-2023 ambulatory [facility] Comment on above: Right RFA - suprascapular nerve w fluoro ; 81mg asp MEDICARE AUTH [employer] R Right RFA - suprascapular nerve w fluoro; 81mg asp Start: 10-21-2023 End: 01-20-2024 Comprehensive metabolic 2000 panel - Serum or Plasma COMPREHENSIVE METABOLIC PANEL Lab Routine Chronic constipation Leg swelling CKD (chronic kidney disease) stage 4, GFR 15-29 ml/min ([facility]) Expected: 10/21/2023, Expires: 01/20/2024 [facility] Work Phone: Comment on above: Expected: 10/21/2023, Expires: Start: 09-27-2023 ANNUAL PCP TEAM CHRONIC DISEASE VISIT ANNUAL PCP TEAM CHRONIC DISEASE VISIT [facility] Start: 09-27-2023 SERUM CREATININE SERUM CREATININE [facility] Start: 06-27-2023 ANNUAL PCP TEAM CHRONIC DISEASE VISIT ANNUAL PCP TEAM CHRONIC DISEASE VISIT [facility] Start: 06-27-2023 BP CONTROLLED (<130/80) BP CONTROLLED (<130/80) [facility] Start: 06-11-2023 Blood chemistry [facility] Start: 06-10-2023 Blood chemistry [facility] Start: 06-09-2023 Patient discharge [facility] Start: 06-08-2023 Thyroid stimulating hormone measurement [facility] Start: 06-08-2023 [facility] Start: 06-08-2023 Following clinical pathway protocol [facility] Start: 06-08-2023 Ambulation without limitation [facility] Start: 06-08-2023 Assessment of risk of venous thromboembolism [facility] Start: 06-08-2023 Incentive spirometry [facility] Start: 06-08-2023 Inhalation therapy procedure [facility] Start: 06-08-2023 Insertion of catheter into peripheral vein [facility] Start: 06-08-2023 Measuring intake and output [facility] Start: 06-08-2023 Oxygen therapy [facility] Start: 06-08-2023 Providing care according to standard [facility] Start: 06-08-2023 Referral to service [facility] Start: 06-08-2023 [facility] Start: 06-08-2023 Verification routine [facility] Start: 06-08-2023 Admission procedure [facility] Start: 05-13-2023 BP CONTROLLED (<130/80) BP CONTROLLED (<130/80) [facility] Start: 04-21-2023 ANNUAL PCP TEAM CHRONIC DISEASE VISIT ANNUAL PCP TEAM CHRONIC DISEASE VISIT [facility] Start: 04-21-2023 BP CONTROLLED (<130/80) BP CONTROLLED (<130/80) [facility] Start: 04-06-2023 Behavioral Health Screening Behavioral Health Screening [facility] Start: 04-06-2023 Depression Assessment Depression Assessment [facility] Start: 01-23-2023 End: 03-25-2023 Comprehensive metabolic 2000 panel - Serum or Plasma COMP METABOLIC PANEL Lab Routine Decreased glomerular filtration rate (GFR) Expected: 01/23/2023, Expires: 03/25/2023 [facility] Work Phone: Comment on above: Expected: 01/23/2023, Expires: 3 Start: 01-06-2023 SERUM CREATININE SERUM CREATININE [facility] Start: 01-02-2023 ANNUAL PCP TEAM CHRONIC DISEASE VISIT ANNUAL PCP TEAM CHRONIC DISEASE VISIT [facility] Start: 12-22-2022 End: 02-21-2023 Comprehensive metabolic 2000 panel - Serum or Plasma [facility] Work Phone: Comment on above: Expected: 12/22/2022, Expires: 3 Start: 12-22-2022 End: 02-21-2023 Thyrotropin [Units/volume] in Serum or Plasma [facility] Work Phone: Comment on above: Expected: 12/22/2022, Expires: 3 Start: 12-22-2022 End: 02-21-2023 Thyroxine (T4) free [Mass/volume] in Serum or Plasma [facility] Work Phone: Comment on above: Expected: 12/22/2022, Expires: 3 Start: 12-05-2022 Covid-19 Vaccine ( season) Covid-19 Vaccine ( season) [facility] Start: 12-05-2022 Covid-19 Vaccine ( season) Covid-19 Vaccine () [facility] Start: 12-05-2022 Influenza vaccination [facility] Start: 11-22-2022 BP CONTROLLED (<130/80) BP CONTROLLED (<130/80) [facility] Start: 09-19-2022 Adult depression screening assessment DEPRESSION SCREENING [facility] Start: 07-16-2022 ANNUAL PCP TEAM CHRONIC DISEASE VISIT ANNUAL PCP TEAM CHRONIC DISEASE VISIT [facility] Start: 07-16-2022 BP CONTROLLED (<130/80) BP CONTROLLED (<130/80) [facility] Start: 07-16-2022 HEMOGLOBIN/HEMATOCRIT HEMOGLOBIN/HEMATOCRIT [facility] Start: 07-16-2022 SERUM CREATININE SERUM CREATININE [facility] Start: 06-26-2022 End: 08-26-2022 Bacteria identified in Urine by Culture [facility] Work Phone: Comment on above: Expected: 06/26/2022, Expires: 3 Start: 06-26-2022 End: 08-26-2022 Urinalysis complete panel - Urine [facility] Work Phone: Comment on above: Expected: 06/26/2022, Expires: 3 Start: 04-28-2022 COVID-19 VACCINE (5 - Moderna series) COVID-19 VACCINE (5 - Moderna series) [facility] Start: 04-06-2022 ADVANCE DIRECTIVE DISCUSSION ADVANCE DIRECTIVE DISCUSSION [facility] Start: 04-06-2022 DEPRESSION ASSESSMENT DEPRESSION ASSESSMENT [facility] Start: 01-02-2022 End: 03-04-2022 Comprehensive metabolic 2000 panel - Serum or Plasma COMP METABOLIC PANEL Lab Routine Leg swelling Function kidney decreased Shortness of breath Expected: 01/02/2022, Expires: 03/04/2022 [facility] Work Phone: Comment on above: Expected: 01/02/2022, Expires: 2 Start: 01-02-2022 End: 03-04-2022 Natriuretic peptide.B prohormone N-Terminal [Mass/volume] in Serum or Plasma NT PRO BNP Lab Routine Leg swelling Shortness of breath Expected: 01/02/2022, Expires: 03/04/2022 [facility] Work Phone: Comment on above: Expected: 01/02/2022, Expires: 2 Start: 12-05-2021 Influenza vaccination INFLUENZA (#1) [facility] Start: 07-06-2021 COVID-19 VACCINE (4 - Booster for Moderna series) COVID-19 VACCINE (4 - Booster for Moderna series) [facility] Start: 05-02-2021 COVID-19 VACCINE (4 - Booster for Moderna series) COVID-19 VACCINE (4 - Booster for Moderna series) [facility] Start: 04-06-2021 ADVANCE DIRECTIVE DISCUSSION ADVANCE DIRECTIVE DISCUSSION [facility] Start: 04-06-2021 DEPRESSION ASSESSMENT DEPRESSION ASSESSMENT [facility] Start: 11-26-2019 Adult depression screening assessment DEPRESSION SCREENING [facility] Start: 11-24-2018 Screening for malignant neoplasm of breast [facility] Start: 2017 RSV Vaccine (1 - 1-dose 75+ series) RSV Vaccine (1 - 1-dose 75+ series) [facility] Start: 07-12-2009 SHINGRIX VACCINE (2 of 3) SHINGRIX VACCINE (2 of 3) [facility] Start: 07-12-2009 [facility] Start: 07-05-2008 Medicare Annual Wellness Visit Medicare Annual Wellness Visit [facility] Start: 2002 RSV Vaccine (1 - 1-dose 60+ series) RSV Vaccine (1 - 1-dose 60+ series) [facility] Start: 06-20-1987 Screening for malignant neoplasm of colon [facility] Start: 06-20-1963 Screening for malignant neoplasm of cervix [facility] Start: 1960 BP CONTROLLED (<130/80) BP CONTROLLED (<130/80) [facility] Start: 1942 Screening for osteoporosis [facility] Alanine aminotransfe rase [Enzymatic activity/volume] in Serum or Plasma [facility] Albumin [Mass/volume ] in Serum or Plasma [facility] Alkaline phosphatase [Enzymatic activity/volume] in Serum or Plasma [facility] Anion gap measurement [facility] Anion gap measurement [facility] Anion gap measurement [facility] Arthrocentesis aspir &/inj major jt/bursa w/o us DRAIN/INJECT LARGE JOINT/BURSA Procedures Routine Primary osteoarthritis of both shoulders Ordered: 02/16/2023 [facility] Work Phone: Comment on above: Ordered: 02/16/2023 Arthrocentesis aspir &/inj major jt/bursa w/o us DRAIN/INJECT LARGE JOINT/BURSA Procedures Routine Primary osteoarthritis of both shoulders Ordered: 05/18/2023 [facility] Work Phone: Comment on above: Ordered: 05/18/2023 Aspartate aminotransferase [Enzymatic activity/volume] in Serum or Plasma [facility] Bilirubin, total measurement [facility] Blood chemistry [facility] [facility] BUN/Creatinine ratio [facility] BUN/Creatinine ratio [facility] BUN/Creatinine ratio [facility] Calcium [Mass/volume ] in Serum or Plasma [facility] Calcium [Mass/volume ] in Serum or Plasma [facility] Calcium [Mass/volume ] in Serum or Plasma [facility] Carbon dioxide, tota l [Moles/volume] in Serum or Plasma [facility] Carbon dioxide, tota l [Moles/volume] in Serum or Plasma [facility] Carbon dioxide, tota l [Moles/volume] in Serum or Plasma [facility] Catheterization of l eft heart [facility] Chloride [Moles/volu me] in Serum or Plasma [facility] Chloride [Moles/volu me] in Serum or Plasma [facility] Chloride [Moles/volu me] in Serum or Plasma [facility] Clostridioides diffi cile toxin genes [Presence] in Stool by JEANA with probe detection C. DIFFICILE PCR Lab Routine Rectal bleeding 05/16/2022 8:40 AM EST [facility] Work Phone: Clostridioides diffi cile toxin genes [Presence] in Stool by JEANA with probe detection C. DIFFICILE PCR Lab Routine Change in stool Ordered: 06/26/2022 [facility] Work Phone: Comment on above: Ordered: 06/26/2022 End: 05-05-2024 CMV IGG & IGM, QUANT. [facility] Creatinine [Moles/vo lume] in Serum or Plasma [facility] Creatinine [Moles/vo lume] in Serum or Plasma [facility] Creatinine [Moles/vo lume] in Serum or Plasma [facility] End: 08-17-2022 Ct abdomen & pelvis w/o contrast material CT ABD/PEL WO IVCON Radiology Routine Left upper quadrant abdominal pain 1 Occurrences starting 07/18/2021 until 08/17/2022 [facility] Work Phone: Comment on above: 1 Occurrences starting 07/18/2021 until 08/17/2022 Dstrj neurolytic age nt other peripheral nerve NRV DESTR RFA, CHEM OTHER Procedures Routine Primary osteoarthritis of both shoulders Ordered: 07/15/2023 [facility] Work Phone: Comment on above: Ordered: 07/15/2023 Dstrj neurolytic age nt other peripheral nerve NRV DESTR RFA, CHEM OTHER Procedures Routine Primary osteoarthritis of both shoulders Ordered: 11/16/2023 [facility] Work Phone: Comment on above: Ordered: 11/16/2023 End: 05-05-2024 EBV VCA IGG AND IGM [facility] Erythrocyte mean corpuscular volume determination [facility] Erythrocyte mean corpuscular volume determination [facility] Erythrocyte mean corpuscular volume determination [facility] Glucose [Mass/volume ] in Serum or Plasma [facility] Glucose [Mass/volume ] in Serum or Plasma [facility] Glucose [Mass/volume ] in Serum or Plasma [facility] Hematocrit [Volume Fraction] of Blood [facility] Hematocrit [Volume Fraction] of Blood [facility] Hematocrit [Volume Fraction] of Blood [facility] Hemoglobin [Mass/vol ume] in Blood [facility] Hemoglobin [Mass/vol ume] in Blood [facility] Hemoglobin [Mass/vol ume] in Blood [facility] Leukocytes [#/volume ] in Blood [facility] Leukocytes [#/volume ] in Blood [facility] Leukocytes [#/volume ] in Blood [facility] Magnesium [Mass/volu me] in Serum or Plasma [facility] Mean corpuscular hemoglobin concentration determination [facility] Mean corpuscular hemoglobin concentration determination [facility] Mean corpuscular hemoglobin concentration determination [facility] Mean corpuscular hemoglobin determination [facility] Mean corpuscular hemoglobin determination [facility] Mean corpuscular hemoglobin determination [facility] Measurement of renal function [facility] Measurement of renal function [facility] Measurement of renal function [facility] Neutrophil count [facility] Neutrophil count [facility] Neutrophil count [facility] Neutrophil percent differential count [facility] Neutrophil percent differential count [facility] Neutrophil percent differential count [facility] Nucleic acid assay [facility] Work Phone: Patient referral [facility] Work Phone: Platelets [#/volume] in Blood [facility] Platelets [#/volume] in Blood [facility] Platelets [#/volume] in Blood [facility] Potassium [Moles/vol ume] in Serum or Plasma [facility] Potassium [Moles/vol ume] in Serum or Plasma [facility] Potassium [Moles/vol ume] in Serum or Plasma [facility] Prq impltj neurostimulator eltrd peripheral nrv PERCUT IMPLANT NEUROELEC. Procedures Routine Chronic bilateral low back pain without sciatica Lumbar spondylosis Ordered: 07/30/2022 [facility] Work Phone: Comment on above: Ordered: 07/30/2022 Prq impltj neurostimulator eltrd peripheral nrv PERCUT IMPLANT NEUROELEC. Procedures Routine Lumbar spondylosis Chronic bilateral low back pain without sciatica Ordered: 08/13/2022 [facility] Work Phone: Comment on above: Ordered: 08/13/2022 PT PLAN OF CARE CERTIFICATION PT PLAN OF CARE CERTIFICATION Procedures Routine Lymphedema Ordered: 11/22/2021 [facility] Comment on above: Ordered: 11/22/2021 End: 10-19-2022 Radex spine lumbosacral minimum 4 views XR LUMBAR MOTION 4V AP/LAT/ FLEX/EXT Radiology Routine Lumbar spondylosis 1 Occurrences starting 09/19/2021 until 10/19/2022 [facility] Work Phone: Comment on above: 1 Occurrences starting 09/19/2021 until 10/19/2022 Radex spine lumbosac ral minimum 4 views XR LUMBAR MOTION 4V AP/LAT/ FLEX/EXT Radiology Routine Lumbar spondylosis 09/20/2021 1:48 PM EDT [facility] Work Phone: End: 10-19-2022 Radex spine thoracic 2 views XR THORACIC LIMITED 2V AP/LAT Radiology Routine Thoracic spine pain 1 Occurrences starting 09/19/2021 until 10/19/2022 [facility] Work Phone: Comment on above: 1 Occurrences starting 09/19/2021 until 10/19/2022 Radex spine thoracic 2 views XR THORACIC LIMITED 2V AP/LAT Radiology Routine Thoracic spine pain 09/20/2021 1:48 PM EDT [facility] Work Phone: Red blood cell count [facility] Red blood cell count [facility] Red blood cell count [facility] Red cell distributio n width determination [facility] Red cell distributio n width determination [facility] Red cell distributio n width determination [facility] Serum inorganic phos phate measurement [facility] Sodium [Moles/volume ] in Serum or Plasma [facility] Sodium [Moles/volume ] in Serum or Plasma [facility] Sodium [Moles/volume ] in Serum or Plasma [facility] Total protein measurement [facility] Troponin T.cardiac [Mass/volume] in Serum or Plasma by High sensitivity method [facility] Troponin T.cardiac [Mass/volume] in Serum or Plasma by High sensitivity method [facility] Urea nitrogen [Mass/volume] in Serum or Plasma [facility] Urea nitrogen [Mass/volume] in Serum or Plasma [facility] Urea nitrogen [Mass/volume] in Serum or Plasma [facility] URODYNAMICS WHI URODYNAMICS I Procedures Routine Female stress incontinence Urge urinary incontinence Ordered: 06/30/2022 [facility] Work Phone (unformatted): [phone] Comment on above: Ordered: 06/30/2022 End: 02-01-2023 Us abdominal real time w/image documentation US ABDOMEN COMPLETE Radiology STAT Abdominal distension 1 Occurrences starting 01/02/2022 until 02/01/2023 [facility] Work Phone: Comment on above: 1 Occurrences starting 01/02/2022 until 02/01/2023 End: 10-12-2025 XR Chest PA and Lateral XR CHEST 2V FRONTAL/LAT Radiology Routine Subacute cough 1 Occurrences starting 09/12/2024 until 10/12/2025 [facility] Work Phone: Comment on above: 1 Occurrences starting 09/12/2024 until 10/12/2025 XR Chest PA and Lateral XR CHEST 2V FRONTAL/LAT Radiology Routine Subacute cough 09/12/2024 4:11 PM EDT [facility] End: 02-14-2024 XR SHOULDER LIMITED 2V AP/TRUE AP LEFT XR SHOULDER LIMITED 2V AP/TRUE AP LEFT Radiology Routine Primary osteoarthritis of both shoulders Rotator cuff impingement syndrome, unspecified laterality 1 Occurrences starting 01/15/2023 until 02/14/2024 [facility] Work Phone: Comment on above: 1 Occurrences starting 01/15/2023 until 02/14/2024 XR SHOULDER LIMITED 2V AP/TRUE AP LEFT XR SHOULDER LIMITED 2V AP/TRUE AP LEFT Radiology Routine Primary osteoarthritis of both shoulders Rotator cuff impingement syndrome, unspecified laterality 01/15/2023 11:18 AM EDT [facility] Work Phone: End: 02-14-2024 XR SHOULDER [id number] AP/TRUE AP RIGHT XR SHOULDER [id number] AP/TRUE AP RIGHT Radiology Routine Primary osteoarthritis of both shoulders Rotator cuff impingement syndrome, unspecified laterality 1 Occurrences starting 01/15/2023 until 02/14/2024 [facility] Work Phone: Comment on above: 1 Occurrences starting 01/15/2023 until 02/14/2024 XR SHOULDER LIMITED2 V AP/TRUE AP RIGHT XR SHOULDER [id number] AP/TRUE AP RIGHT Radiology Routine Primary osteoarthritis of both shoulders Rotator cuff impingement syndrome, unspecified laterality 01/15/2023 11:17 AM [employer] [facility] Work Phone: [facility] Immunizations Immunization Date Immunization Notes Care Provider Abraham simpson 03-23-2024 respiratory syncytia l virus (RSV) vaccine, adjuvanted (AREXVY) Lizy Capone MD Work Phone: [facility] 01-28-2024 COVID-19 vaccine, ag e 12+ yr (PFIZER-BIONTECH COMIRNATY) Miraym Orozco MARKET MANAGER.DIGITAL DATA ANALYST Work Phone: [facility] 01-28-2024 influenza, high dose seasonal, preservative-free Miryam Orozco MARKET MANAGER.DIGITAL DATA ANALYST Work Phone: [facility] 01-04-2023 influenza, injectabl e, quadrivalent, preservative free Dr. Judson Toney Work Phone: [facility] 01-04-2023 influenza virus vacc ine, unspecified formulation Roque Delgado MD Work Phone: [facility] 02-12-2022 Influenza High-Dose Quadrivalent Dr. Judson Toney Work Phone: [facility] 02-12-2022 influenza, high dose seasonal, preservative-free Lizy Capone MD Work Phone: [facility] 02-12-2022 influenza virus vacc ine, unspecified formulation Miryam Orozco MARKET MANAGER.DIGITAL DATA ANALYST Work Phone: [facility] 12-27-2021 COVID-19 booster vaccine, age 18+ yr, bivalent (MODERNA) Allison Ramirezon PT [facility] 12-27-2021 COVID-19 vaccine, ag e 12+ yr, bivalent (PFIZER-BIONTECH) Roque Delgado MD Work Phone: [facility] Work Phone: 03-07-2021 Covid (Moderna) Dr. Judson nunez Work Phone: [facility] 12-17-2020 Influenza High-Dose Quadrivalent Dr. Judson Toney Work Phone: [facility] 12-17-2020 influenza, high dose seasonal, preservative-free Lizy Capone MD Work Phone: [facility] 03-29-2021 Covid (Moderna) Dr. Lizy lucero Work Phone: [facility] 06-04-2020 Covid (Moderna) Dr. 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 [employer] Work Phone: [facility] 12-30-2014 influenza, high dose seasonal, preservative-free Lizy Capone MD Work Phone: [facility] 02-02-2012 influenza virus vacc ine, unspecified formulation Lizy Capone MD Work Phone: [facility] 02-02-2012 pneumococcal polysaccharide vaccine, 23 valent Lizy Capone MD Work Phone: [facility] 02-21-2010 influenza virus vacc ine, unspecified formulation Lizy Capone MD Work Phone: [facility] 05-17-2009 zoster vaccine, live Lizy chavis MD Work Phone: [facility] 04-16-2009 novel influenza-H1N1 -09, preservative-free, injectable Dr. Judson Toney Work Phone: [facility] 02-03-2008 influenza virus vacc ine, unspecified formulation Lizy Capone MD Work Phone: [facility] 07-01-2007 tuberculin skin test ; purified protein derivative solution, intradermal Starr Marques MD Work Phone: [facility] 02-04-2007 influenza virus vacc ine, unspecified formulation Lizy Capone MD Work Phone: [facility] Work Phone: 01-06-2007 pneumococcal polysaccharide vaccine, 23 valent Lizy Capone MD Work Phone: [facility] 02-03-2006 influenza virus vacc ine, whole virus Lizy Capone MD Work Phone: [facility] Work Phone: 01-30-2005 influenza virus vacc ine, whole virus Lizy Capone MD Work Phone: [facility] Work Phone: 01-06-2005 pneumococcal conjuga te vaccine, 7 valent Lizy Capone MD Work Phone: [facility] Work Phone: 12-26-1999 tetanus toxoid, adsorbed Mar ashley Estelita JACK Work Phone: [facility] Work Phone: Payers Date Payer Category Payer Managed Care (unspecified) [id number] 2023 Medicare [id number] 2023 Self-pay [id number] 2023 Unknown [id number] 2008 Medicare MEDICARE MEDICAR E A AND B [id number] 2008-Present [phone] [address] [address] [place] [address] Medicare [id number] 2008 Medicare [id number]. [id number] 2008 Unknown [facility] [employer] [id number] 2008-Present [address] [place] [address] Indemnity [id number] [id number] 2008 Unknown [id number] 2007 Medicare [id number] 1998 Unknown [id number]. 1.13.159. 2.7.3.512533.315 1942 Unknown [id number] 2.16.840.1.614621.3.579. 2.732 1942 Unknown [id number] 2.16.840.1.351221.3.579. 2.594 Unknown [id number] 2.16.840.1.942863.3.579. 2.462 Unknown [id number] 2.16.840.1.775920.3.579. 2.462 Unknown [id number] 2.16.840.1.340741.3.579. 2.462 Unknown [id number] 2.16.840.1.611053.3.579. 2.462 Unknown [id number] 2..840.1.115387.3.579. 2.462 Unknown [id number] 2.16.840.1.745758.3.579. 2.462 Unknown [id number] 2.16.840.1.211609.3.579. 2.462 Unknown [id number] 2.840.1.281322.3.579. 2.462 Unknown [id number] 2.16.840.1.195280.3.579. 2.462 Unknown [id number] 2.16.840.1.535528.3.579. 2.462 Unknown [id number] 2.16.840.1.814901.3.579. 2.462 Unknown [id number] 2.840.1.589244.3.579. 2.462 Unknown [id number] 2.16.840.1.049631.3.579. 2.462 Unknown [id number] 2.16.840.1.229631.3.579. 2.462 Unknown [id number] 2.16.840.1.800431.3.579. 2.462 Unknown [id number] 2.16.840.1.866909.3.579. 2.462 Unknown [id number] 2.16.840.1.031508.3.579. 2.462 Unknown [id number] 2.16.840.1.511109.3.579. 2.462 Unknown [id number] 2.16.840.1.268325.3.579. 2.462 Unknown [id number] 2.16.840.1.593645.3.579. 2.462 Unknown [id number] 2.16.840.1.079277.3.579. 2.462 Unknown [id number] 2.16.840.1.817805.3.579. 2.462 Unknown [id number] 2..840.1.980054.3.579. 2.462 Unknown [id number] 2.16.840.1.635948.3.579. 2.462 Unknown [id number] 2.840.1.450498.3.579. 2.462 Unknown [id number] 2.840.1.814424.3.579. 2.462 Unknown [id number] 2.840.1.286462.3.579. 2.462 Unknown [id number] 2.840.1.295089.3.579. 2.462 Unknown [id number] 2.16840.1.643475.3.579. 2.462 Unknown [id number] 2.840.1.764855.3.579. 2.462 Unknown [id number] 2.16.840.1.710506.3.579. 2.462 Unknown [id number] 2.16.840.1.706359.3.579. 2.462 Unknown [id number] 2.16.840.1.862280.3.579. 2.462 Unknown [id number] 2.16.840.1.563739.3.579. 2.462 Unknown [id number] 2.16.840.1.892269.3.579. 2.462 Unknown [id number] 2.16.840.1.640372.3.579. 2.462 Unknown [id number] 2.16.840.1.800094.3.579. 2.462 Unknown [id number] 2.16.840.1.352795.3.579. 2.462 Unknown [id number] 2.16.840.1.456497.3.579. 2.462 Unknown [id number] 2.16.840.1.930529.3.579. 2.462 Unknown [id number] 2.16.840.1.367362.3.579. 2.462 Unknown [id number] 2.16.840.1.001831.3.579. 2.462 Unknown [id number] 2.16.840.1.628151.3.579. 2.462 Unknown [id number] 2.16.840.1.622673.3.579. 2.462 Unknown [id number] 2.16.840.1.566416.3.579. 2.462 Unknown [id number] 2.16.840.1.908111.3.579. 2.462 Unknown [id number] 2.16.840.1.754062.3.579. 2.462 Unknown [id number] 2.16.840.1.112828.3.579. 2.462 Unknown [id number] 2.16.840.1.817855.3.579. 2.462 Unknown [id number] 2.16.840.1.864897.3.579. 2.462 Unknown [id number] 2.16.840.1.323998.3.579. 2.462 Unknown [id number] 2.16.840.1.265150.3.579. 2.462 Unknown [id number] 2.16.840.1.949912.3.579. 2.462 Unknown [id number] 2.16.840.1.232050.3.579. 2.462 Unknown [id number] 2.16.840.1.821354.3.579. 2.462 Unknown [id number] 2.16.840.1.179909.3.579. 2.462 Unknown [id number] 2.16.840.1.586888.3.579. 2.462 Unknown [id number] 2.16.840.1.467399.3.579. 2.462 Unknown [id number] 2.16.840.1.417682.3.579. 2.462 Unknown [id number] 2.16.840.1.614441.3.579. 2.462 Unknown [id number] 2.16.840.1.741616.3.579. 2.462 Unknown [id number] 2.16.840.1.386238.3.579. 2.462 Unknown [id number] 2.16.840.1.142867.3.579. 2.462 Unknown [id number] 2.16.840.1.882966.3.579. 2.462 Unknown [id number] 2.16.840.1.753233.3.579. 2.462 Social History Date Type Detail Facility Start: 04-27-2017 End: 12-04-2023 Tobacco smoking status NHIS Ex-smoker [facility] Start: 04-06-1952 End: 04-06-1953 History of tobacco use Current smoker [facility] Work Phone: Start: 04-06-1952 End: 04-06-1953 History of tobacco use Cigarette Smoker [facility] Work Phone: Start: 07-16-2021 End: 09-22-2024 Alcohol intake Current drinker of alcohol (finding) [facility] Start: 11-18-2016 History SDOH Alcohol Comment ocas glass of wine [facility] Start: 1940 Sex Assigned At Not on file [facility] Start: 07-06-2021 End: 01-30-2022 Exposure to SARS-CoV-2 (event) Not sure [facility] Start: 08-06-2021 End: 05-05-2024 Tobacco smoking status NHIS Unknown if ever smoked [facility] Start: 04-15-2016 None [facility] Start: 01-09-2021 Non[facility] Start: 1940 Sex Assigned At Female [facility] Start: 04-27-2017 End: 09-26-2022 Cigarettes smoked current (pack per day) - Reported 0.3 [facility] Start: 04-27-2017 End: 12-04-2023 Tobacco use and exposure Smokeless tobacco non-user [facility] Start: 11-28-2021 History SDOH Alcohol Comment occasionally [facility] Start: 09-26-2022 End: 10-16-2022 Tobacco use panel [facility] Adult Depression Screening Assessment 0 [facility] Start: 04-15-2016 [facility] Start: 03-14-2024 End: 07-29-2024 Sex Female (finding) [facility] Start: 05-18-2024 End: 09-28-2024 Tobacco smoking status NHIS Never smoked tobacco (finding) [facility] NEGATED: Highlighted row [facility] Medical Equipment Procedure Code Equipment Code Equipment Origin al Text Equipment Identifier Dates Anchr Sut 4.5mm Pshlk Spnl - [id number] Start: 04-24-2011 Comment on above: Description: MICHELLE ROBLES Goals Date Patient Goal Desired Activity /State Functional Status Date Assessment Result Facility 06-10-2024 Functional status With Assist of 2 [facility] Work Phone: 06-07-2024 Functional status [facility] Work Phone: 05-10-2024 Are you deaf, or do you have serious difficulty hearing No [facility] 05-10-2024 Are you blind, or do you have serious difficulty seeing, even when wearing glasses No [facility] 05-10-2024 Do you have serious difficulty walking or climbing stairs No [facility] 05-10-2024 Do you have difficul ty dressing or bathing Yes [facility] 05-10-2024 Because of a physica l, mental, or emotional condition, do you have difficulty doing errands alone such as visiting a physician's office or shopping Yes [facility] 05-05-2024 Functional status Patient unable to answe r [facility] 05-04-2024 Functional status [facility] Work Phone: 06-09-2023 Functional status [facility] Work Phone: 08-15-2013 Are you deaf, or do you have serious difficulty hearing No 08/15/2013 4:14 PM EDT Alex Lackey MA No [facility] 08-15-2013 Are you blind, or do you have serious difficulty seeing, even when wearing glasses No 08/15/2013 4:14 PM EDT Alex Lackey MA No [facility] 08-15-2013 Do you have serious difficulty walking or climbing stairs No 08/15/2013 4:14 PM EDT Alex Lackey MA No [facility] 08-15-2013 Do you have difficul ty dressing or bathing No 08/15/2013 4:14 PM EDT Alex Lackey MA No [facility] 08-15-2013 Because of a physica l, mental, or emotional condition, do you have difficulty doing errands alone such as visiting a physician's office or shopping No 08/15/2013 4:14 PM EDT Alex Lackey MA No [facility] Mental Status Date Assessment Result Facility 09-06-2024 Cognitive function Voice/Name [facility] Work Phone: 06-10-2024 Cognitive function Voice/Name [facility] Work Phone: 05-10-2024 Because of a physica l, mental, or emotional condition, do you have serious difficulty concentrating, remembering, or making decisions No [facility] 05-04-2024 Cognitive function Touch/Shaking ;Light Pain [facility] Work Phone: 05-03-2024 Cognitive function None [facility] Work Phone: 06-09-2023 Cognitive function Voice/Name [facility] Work Phone: 08-15-2013 Because of a physica l, mental, or emotional condition, do you have serious difficulty concentrating, remembering, or making decisions No 08/15/2013 4:14 PM EDT Alex Lackey MA No [facility] Clinical Notes 11-24-2016 to 09-28-2024 Note Date & Type Note Facility 09-28-2024 Radiology Diagnostic study note [facility] 09-28-2024 Radiology Diagnostic study note [facility] 09-28-2024 Radiology Diagnostic study note [facility] 09-28-2024 Radiology Diagnostic study note [facility] 09-28-2024 Discharge summary Note Date/Time September 28, 2024 8:32pm [facility] Medical Records Department [address] [place] [address] Emergency Department Summary 09/28/24 MR#: [id number] Acct: [id number] Name: MARI LOPEZ Rep #:[id number] : 1940 84 From: Jhonatan Maxwell DO PCP: BROOKLYN Aguillon Status:REG E R Location: ED ADDENDUM by Dr. Laurence Zamora DO on 09/28/24 at 2031 Patient signed out to me pending lab work. Patient said generalized weakness and had what sounds like a mechanical fall where her knees just kind of gave outand she fell to the ground. She notes that she has been feeling foggy over the past few days and developed a slight tremor. Has noticed some mild word findingdifficulties. She states that her roommate tells her that she has not been eating or drinking much. Patient was a difficult stick and we had a hard time obtaining blood work. Lab work ultimately resulted and patient was found to have a chronic but stable anemia with hemoglobin 9.2. No leukocytosis. Her CMP showed acute on chronic renal failure with potassium of 6.0, bicarb of 11, BUN of 111, creatinine of 4.15 and a magnesium of 3.1. She also had a transaminitis with an AST of 289, ALT of 351 and alkaline phosphatase of 130. High since a troponin mildly elevated at 44. With the findings of elevated potassium I did obtain an EKG interpreted by myself which showed atrial fibrillation at a rate of 98 bpm with normal axis. There is a left bundle branch block with T wave inversions in 1 and aVL. Compared to prior EKG patient has now prolonged QRS (from 100 ms 270 ms) and a new left bundle branch block as she also has some peaked T waves in V2. I am concerned that these are EKG changes associated with hyperkalemia. Patient given a hyper-K medication including calcium gluconate, insulin with dextrose, albuterol and after discussion with hospitalist, Kayexalate. She was given IV fluids. Suspect this is likely from dehydration given her low bicarb as well. Patient also has an acute transaminitis. I question there is more of a shock picture. She does not have any associate abdominal pains I do not think she requires emergent abdominal imaging at this time. Patient will be admitted for treatment of her electrolyte derangements and hyperkalemia as well as close monitoring. She will also likely require evaluation for debility and placement. Patient agreeable with plan of care. Case discussed with hospitalist, Dr. Gallardo. Critical care time?30 minutes Discussion with hospitalist to arrange admission, discussion with patient, treatment of life-threatening hyperkalemia. Diagnosis Acute on chronic renal failure Hyperkalemia EKG changes Debility Fall Transaminitis 09/28/242031<Electronically signed by Laurence Zamora DO> Cosigner Signature (if applicable): cc: BROOKLYN Orozco ~* Signed HPI History of Present Illness Chief Complaint: Lower Extremity Injury Narrative Narrative: Patient is a 84-year-old female with a past medical history of DVT, seizures, hypothyroidism, lymphedema, heart failure with preserved ejection fraction, TADEO,hypertension, BMI 45-49 who presented to the emergency department chief complaint of generalized weakness, knee pain. According to the patient recentlyshe has become extremely weak and cannot walk and her legs are giving out on her. She states that she was working with physical therapy twice today and thatshe felt was and EMS had to be called out to pick her up. They note that recently over the last several days she has also developed a tremor that is new for her. In the triage note they note that she is having some word finding difficulty and notes that this has been going on several days as well. [facility] Medical History Wears glasses Post-menopausal Open wound Arthritis Walker as ambulation aid Bladder disease History of renal disease Anemia DVT (deep venous thrombosis) Low iron High cholesterol Back pain Seizures Hoarseness Non-smoker CPAP (continuous positive airway pressure) dependence Leg cramps History of edema History of echocardiogram History of stress test Cardiology follow-up encounter Urinary incontinence Osteopenia Spinal osteophytosis Status epilepticus Complicated urinary tract infection Osteoporosis Osteoarthritis Venous insufficiency of both lower extremities Hypothyroidism Pulmonary hypertension Diastolic dysfunction Elevated parathyroid hormone Metabolic acidosis Lymphedema Preop cardiovascular exam H/O hemorrhoids (HFpEF) heart failure with preserved ejection fraction History of pulmonary embolus (PE) COVID-19 (01/19/21) MRSA (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 Abdominal pain DVT (deep venous thrombosis) GERD (gastroesophageal reflux disease) Insomnia Obstructive sleep apnea Essential (primary) hypertension Incomplete left bundle branch block Morbid obesity with BMI of 45.0-49.9, adult Home Medications ?Medication ?Instructions ?Recorded ?Last Taken ?Type levonorgestrel (Mirena) 1 mcg intrauterine ONCE . Unknown History nitroglycerin 0.4 mg sublingual 0.4 mg sublingual Q5M PRN chest 06/27/22 Unknown Rx tablet pain #30 tabs polyethylene glycol 3350 17 gram 17 g PO DAILY bowel m obility #30 ea 06/09/23 02/24/24 Rx oral powder packet fluorometholone 0.1 % eye 1 drp ophthalmic (eye) BID e yes 02/24/24 09/05/24 History drops,suspension atorvastatin 40 mg tablet 40 mg PO QHS cholesterol 03/3009/05/24 History ferrous sulfate 324 mg (65 mg 324 mg PO DAILY Suppleme nt 05/18/24 09/05/24 History iron) tablet,delayed release levothyroxine 125 mcg tablet 125 mcg PO DAILY thyroid 05/18/24 09/05/24 History acetaminophen 325 mg tablet 650 mg (2 x 325 mg) PO TID #1 TAB 06/09/24 09/05/24 Rx apixaban 2.5 mg tablet (Eliquis) 2.5 mg PO BID #1 TAB 06/09/24 09/04/24 Rx bisacodyl 10 mg rectal suppository 10 mg MT X1 PRN Con stipation #1 ea 06/09/24 Unknown Rx calcium acetate(phosphat bind) 667 667 mg PO TIDCM #1 cap 06/09/24 Unknown Rx mg capsule carvedilol 3.125 mg tablet 3.125 mg PO BIDCM #1 TAB 09/05/24 Rx magnesium hydroxide 400 mg/5 mL 30 ml PO X1 PRN Consti pation #30 mL 06/09/24 Unknown Rx oral suspension mirtazapine 15 mg tablet 7.5 mg (1/2 x 15 mg) PO 2000 #1 TAB 06/09/24 09/05/24 Rx pantoprazole 40 mg tablet,delayed 40 mg PO DAILY #1 TA B 06/09/24 09/04/24 Rx release sennosides 8.6 mg-docusate sodium 2 tab PO BID #1 TAB 06/09/24 Unknown Rx 50 mg tablet (Stimulant Laxative Plus) zolpidem 5 mg tablet 5 mg PO QHS #20 tabs 5 09/04/24 Rx cholecalciferol (vitamin D3) 25 50 mcg PO DAILY supple ment 09/05/24 09/05/24 History mcg (1,000 unit) capsule dextromethorphan-guaifenesin 30 1 tab PO Q12H 09/05/24 Unknown History mg-600 mg tablet extended cdzdero40 hr (Mucinex DM) furosemide 40 mg tablet 40 mg PO Q OTHER DAY 5 09/05/24 History lacosamide 100 mg tablet 100 mg PO BID 09/05/2409/05 History ondansetron 4 mg disintegrating 4 mg PO Q6H 09/05/24 U nknown History tablet oxycodone 5 mg tablet 5 mg PO Q4H PRN PRN pain 05/31 Unknown History benzonatate 100 mg capsule 100 mg PO TID 09/06/24 Unkn own History doxycycline monohydrate 100 mg 100 mg PO BID 09/06/24 09/05/24 History capsule oxycodone 5 mg tablet 5 mg PO Q6H PRN pain 5 days #14 09/06/24 Unknown Rx tabs Allergy/AdvReac Type Severity Reaction Status Date / Time cefazolin (From Kefzol) Allergy Severe hives/difficulty Verified 09/06/24 07:54 swallowing ibuprofen Allergy Unknown Rash Verified 09/06/24 07:54 peanut Allergy Anaphylaxis Verified 09/06/24 07:54 Sulfa (Sulfonamide Allergy Unknown Verified 09/06/24 07:54 Antibiotics) sulfamethoxazole (From Allergy Other Verified 09/06/24 07:54 Bactrim) trimethoprim (From Bactrim) Allergy Other Verified 09/06/24 07:54 Family History Mother Cancer uterine Surgical History History of esophagogastroduodenoscopy (EGD) Hx of colonoscopy Hx of left cataract extraction History of dental surgery History of open reduction and internal fixation (ORIF) procedure History of cardiac catheterization Hx laparoscopic cholecystectomy H/O shoulder replacement History of left heart catheterization (08/01/22) History of dilatation and curettage History of hysteroscopy History of bilateral knee replacement History of herniorrhaphy Status post debridement History of open reduction and internal fixation (ORIF) procedure H/O hemorrhoidectomy History of gastric bypass Social History household members: other details: She has a roomate housing: house number of children: 1 current occupational status: retired pets and animals: Yes pets and animals: dog(s) Smoking Status: Never smoker alcohol intake: never substance use type: does not use caffeine: Yes Type: coffee Number of servings: 3 ROS ROS ED ROS Narrative Constitutional: Denies fevers, chills, headaches, lightness, dizziness Eyes: Denies change in vision double vision blurry vision Cardiovascular: Denies chest pain Respiratory: Shortness of breath Abdomen: Denies abdominal pain nausea vomit diarrhea : Denies urinary symptoms Neurological: Complains of generalized weakness, abnormal involuntary shaking intermittently Musculoskeletal: Complains of bilateral knee pain after a fall Skin: Denies any rashes or lesions EXAM Physical Exam Narrative Exam Narrative: General: Patient was lying in bed rest comfortably did not appear to be in acutedistress Head: Atraumatic, normocephalic Eyes: PERRL bilaterally, EOMI, no conjunctival injection noted Neck: Soft, supple, trachea midline Cardiovascular: Regular rate and rhythm no murmurs gallops rubs noted Respiratory: Clear to auscultation bilaterally Abdomen: Soft, nondistended, nontender to palpation Extremities: +5/5 strength noted in the bilateral upper and lower extremities, radial pulses +2/4 in the bilateral upper extremities Neurological: Patient following commands and that she was at [facility] year is 2024. NIH of 0 GCS 15 Skin: Warm, dry, patient has well-healed skin graft over the left knee and a healing skin graft over the right lateral suresh no concern for infection at this point time Const Vital Signs: 09/28/24 13:11 Temperature 98 F Temperature Source Temporal Pulse Rate 100 Respiratory Rate 16 Blood Pressure 109/50 L Blood Pressure Mean 69 Pulse Ox 100 MDM MDM MDM Narrative Medical decision making narrative: Patient is a 84-year-old female who presented to the emergency department the chief complaint generalized weakness and fall. On the differential diagnosis includes but not limited to intracranial hemorrhage, intracranial mass, electrolyte abnormality, ACS. Once workup is obtained reviewed she will be reevaluated. Patient has been difficult stick and imaging is pending at this point in time patient case will be signed out to oncoming provider to make ultimate disposition and follow-up on the results see their note for further details and ultimate disposition. Discharge Plan Triage Chief Complaint: Lower Extremity Injury ED Provider: Jhonatan Maxwell Dx/Rx/DC Orders Clinical Impression: Fall, Generalized weakness, Bilateral knee pain Prescriptions: No Action Mirena 20 mcg/24 hours (7 yrs) 52 mg intrauterine device 1 mcg intrauterine ONCE cholecalciferol (vitamin D3) 25 mcg (1,000 unit) capsule 50 mcg PO DAILY nitroglycerin 0.4 mg tablet, sublingual 0.4 mg sublingual Q5M PRN (Reason: chest pain) Qty: 30 1RF Rx Instructions: do not exceed 3 doses per episode lacosamide 100 mg tablet 100 mg PO BID furosemide 40 mg tablet 40 mg PO Q OTHER DAY oxycodone 5 mg tablet 5 mg PO Q4H PRN PRN (Reason: pain) ondansetron 4 mg tablet,disintegrating 4 mg PO Q6H Mucinex DM 30-600 mg tablet extended release 12 hr 1 tab PO Q12H fluorometholone 0.1 % drops,suspension 1 drp ophthalmic (eye) BID oxycodone 5 mg tablet 5 mg PO Q6H PRN (Reason: pain) 5 Days Qty: 14 0RF doxycycline monohydrate 100 mg capsule 100 mg PO BID benzonatate 100 mg capsule 100 mg PO TID polyethylene glycol 3350 17 gram Powder In Packet 17 g PO DAILY Qty: 30 0RF atorvastatin 40 mg tablet 40 mg PO QHS ferrous sulfate 324 mg (65 mg iron) tablet,delayed release (DR/EC) 324 mg PO DAILY levothyroxine 125 mcg tablet 125 mcg PO DAILY Patient Comments: TAKE 1 TABLET BY MOUTH ONCE DAILY. TAKE ON EMPTY STOMACH. FOR THYROID. acetaminophen 325 mg Tablet 650 mg PO TID Qty: 1 0RF carvedilol 3.125 mg Tablet 3.125 mg PO BIDCM Qty: 1 0RF bisacodyl 10 mg Suppository 10 mg MT X1 PRN (Reason: Constipation) Qty: 1 0RF calcium acetate(phosphat bind) 667 mg Capsule 667 mg PO TIDCM Qty: 1 0RF magnesium hydroxide 400 mg/5 mL Suspension 30 ml PO X1 PRN (Reason: Constipation) Qty: 30 0RF pantoprazole 40 mg Tablet,Delayed Release (Dr/Ec) 40 mg PO DAILY Qty: 1 0RF mirtazapine 15 mg Tablet 7.5 mg PO 2000 Qty: 1 0RF sennosides-docusate sodium [Stimulant Laxative Plus] 8.6-50 mg Tablet 2 tab PO BID Qty: 1 0RF Eliquis 2.5 mg tablet 2.5 mg PO BID Qty: 1 0RF zolpidem 5 mg tablet 5 mg PO QHS Qty: 20 0RF Primary Care Provider: Miryam Orozco Referrals: Miryam Orozco NP-C [Primary Care Provider] - Print Language: Swedish What to do if you have Problems For any increased pain, shortness of breath, bleeding, nausea or vomiting, chestpain, or any unexpected problems, contact your Primary Care Provider. Call [facility] ([phone]) or report to the closest Emergency Room. Call 911 if necessary. 09/28/24 1636 <Electronically signed by Jhonatan Maxwell DO> Cosigner Signature (if applicable): CC: BROOKLYN Orozco ~ Signed [facility] Work Phone: [phone] 570-651406-19-2025 History of Present illness Narrative* Lizy Capone MD - 09/22/2024 2:20 PM EDT Chief Complaint Patient presents with: F/U 1 month HPI Mari Lopez is a 84 year old female who presents here today for 1 month follow up. Here today with Alex, who friend. Pt is using a walker to get around. She did have a fall, her knees became shaky and gave out. She has swelling of the feet and ankles. Has been dealing with cough, saw Michael Carter on 09/15/24. She had blood work done and CXR done. She is still wheezing and coughing that has been ongoing x 3 weeks. Michael prescribed Azithromycinand Amoxicillin and then PCP gave her Doxycycline x 2 weeks. She thinks that the first 2 medications helped better but still not improved. She started on prednisone 2 days ago and feels that this has helped. Was suppose to have right shoulder surgery in July but was hospitalized and unable to have the surgery completed. Pt has chronic UTI, follows with Urologist Dr. Chayo Hernandez. Follows with Cardiology and Nephrology Past medical history, appointments, medications, allergies reviewed. [...] CONDYLE&PLATU MEDIAL&LAT COMPARTMENTS 1990 bilateral total knee s([place]) ARTHRP KNE CONDYLE&PLATU MEDIAL&LAT COMPARTMENTS 10/24/2004 bilateral total knee revisions DELIVERY ONLY , low cervical CHOLECYSTECTOMY COLONOSCOPY FLX DX W/COLLJ SPEC WHEN PFRMD 11/17/2017 Colonoscopy DEBRIDEMENT SUBCUTANEOUS TISSUE 20 SQ CM/< 02/17/2007 LEFT LEG DEBRIDEMENT SUBCUTANEOUS TISSUE 20 SQ CM/< 02/20/2007 LEFT LEG DEBRIDEMENT SUBCUTANEOUS TISSUE 20 SQ CM/< 02/24/2007 LEFT LEG DEBRIDEMENT SUBCUTANEOUS TISSUE 20 SQ CM/< 02/26/2007 LEFT LEG DEBRIDEMENT SUBCUTANEOUS TISSUE 20 SQ CM/< 03/01/2007 LEFT LEG DEBRIDEMENT SUBCUTANEOUS TISSUE 20 SQ CM/< 03/03/2007 LEFT LEG ESOPHAGOGASTRODUODENOSCOPY TRANSORAL DIAGNOSTIC 11/17/2017 EGD GASTRIC BYPASS 07/2003 HEMORRHOIDECTOMY INTERNAL RUBBER BAND LIGATIONS HYSTEROSCOPY BX W/WO D&C 01/07/2018 PAST SURGICAL HISTORY OF 04/10/2016 [place] and new knee cap put in right leg PAST SURGICAL HISTORY OF 04/25/2016 had to debri right leg wound with cellutitis infection SHOULDER SURGERY HX Left 02/22/[address] left reverse total shoulder. Dr. Klaus Omalley with [facility] Family History FAMILY HISTORY Problem Relation Age of Onset Cancer Mother ovarian Patient Allergies ALLERGIES Allergen Reactions Bactrim [Sulfametho* Hives Blisters: head to toe Ibuprofen Rash Kefzol [Cefazolin S* Hives Peanut Anaphylaxis Sulfa (Sulfonamide * Hives, Unknown Blisters: head to toe Current Medications Current Outpatient Medications on File Prior to Visit Medication Sig azithromycin (ZITHROMAX) 250 mg tablet Take 2 tablets by mouth once daily for 1 day, THEN 1 tablet once daily for 4 days. amoxicillin-clavulanate potassium (AUGMENTIN) 875-125 mg per tablet Take 1 tablet by mouth two times a day for 5 days. guaiFENesin (MUCINEX) 600 mg 12 hr tablet Take 1 tablet by mouth two times a day. zolpidem (AMBIEN) 10 mg Take 1 tablet by mouth at bedtime as needed for up to 90 days. benzonatate (TESSALON PERLE) 100 mg capsule Take 1 capsule by mouth three times a day as needed forcough for up to 12 doses. atorvastatin (LIPITOR) 40 mg tablet Take 1 tablet by mouth once daily. bisacodyl (DULCOLAX) 10 mg supp 1 suppository by RECTAL route once daily as needed for constipation. calcium acetate,phosphat bind, (PHOSLO) 667 mg capsule Take 1 capsule by mouth three times a day. carvedilol (COREG) 6.25 mg tablet Take 1 tablet by mouth every 12 hours. cholecalciferol (VITAMIN D3) 1,000 unit tab tablet Take 2 tablets by mouth once daily. ferrous sulfate 325 mg (65 mg iron) tablet Take 1 tablet by mouth once daily. furosemide (LASIX) 40 mg tablet Take 1 tablet by mouth every other day. lacosamide (VIMPAT) 100 mg tab Take 1 tablet by mouth every 12 hours for 180 days. levothyroxine (LEVOXYL) 125 mcg tablet Take 1 tablet by mouth once daily. Take on empty stomach. For thyroid. mirtazapine (REMERON) 7.5 mg tablet Take 1 tablet by mouth daily at bedtime. levonorgestrel (MIRENA) 21 mcg/24hr (up to 8 yrs) 52 mg IUD 1 each by INTRAUTERINE route one time only for 1 dose. magnesium hydroxide (MOM) 400 mg/5 mL suspension Take 30 mL by mouth once daily as needed. fluorometholone (FML LIQUID FILM) 0.1 % ophthalmic suspension Use 1 drop in both eyes two times a day. nitroglycerin sublingual (NITROQUICK) 0.4 mg SL tablet Dissolve 0.4 mg under the tongue every 5 minutes as needed for chest pain. polyethylene glycol 3350 (MIRALAX) 17 gram/dose powder Take by mouth once daily. Dissolve dose in 4- 8 ounces of liquid and take as directed. acetaminophen (TYLENOL) 500 mg tablet Take 1,000 mg by mouth twice daily. Diaper,Brief, Adult,Disposable (DEPEND UNDERWEAR FOR WOMEN XL) Use 5/day as needed for urinary incontinence COMPOUNDED PRESCRIPTION Stair lift senna-docusate (SENNA-S) 8.6-50 mg per tablet Take 1 tablet by mouth once daily. No current facility-administered medications on file prior to visit. Social History Social History Tobacco Use Smoking status: Former Current packs/day: 0.00 Average packs/day: 0.3 packs/day for 1 year (0.3 ttl pk-yrs) Types: Cigarettes Start date: 04/06/1952 Quit date: 04/06/1953 Years since quittin.5 Smokeless tobacco: Never Vaping Use Vaping status: Never Used Substance Use Topics Alcohol use: Yes Comment: occasionally Drug use: No Comment: used drugs for 3 years EXAM: BP 122/72 Pulse 120 Resp 18 Wt 108.2 kg (238 lb 8.6 oz) SpO2 98% BMI 43.63 kg/m General Appearance: Well appearing, alert, in no acute distress, well-hydrated, well nourished. andMorbidly obese.. Lungs: Lungs clear to auscultation. No wheezing, rhonchi, rales.. Heart: RRR without murmur, gallop, or rubs. No ectopy Ext: 2-3 + edema lower legs/feeet. Health Maintenance List Medicare Annual Wellness Visit Never done Shingrix Vaccine(2 of 3) due on 07/12/2009 Advance Directive Discussion due on 04/06/2024 Depression Screening due on 07/21/2024 Anxiety Screening due on 07/21/2024 Covid-19 Vaccine() due on 07/28/2024 DTaP,Tdap,Td Vaccine(2 - Td or Tdap) due on 09/01/2027 Diabetes Screening due on 09/16/2027 Bone Density Screening Completed Influenza Vaccine Completed RSV Vaccine Completed Pneumococcal Vaccine: 50+ Completed Colorectal Cancer Screening Discontinued Data reviewed Appointment on 09/15/2024 Component Date Value WBC 09/15/2024 7.94 RBC 09/15/2024 3.09 (L) Hemoglobin 09/15/2024 9.9 (L) Hematocrit 09/15/2024 32.9 (L) MCV 09/15/2024 106.5 (H) MCH 09/15/2024 32.0 MCHC 09/15/2024 30.1 (L) RDW-CV 09/15/2024 15.7 (H) Platelet Count 09/15/2024 248 MPV 09/15/2024 13.9 (H) Absolute nRBC 09/15/2024 <0.01 Protein, Total 09/15/2024 6.2 (L) Albumin 09/15/2024 3.4 (L) Calcium, Total 09/15/2024 8.8 Bilirubin, Total 09/15/2024 0.2 Alkaline Phosphatase 09/15/2024 114 AST 09/15/2024 85 (H) ALT 09/15/2024 75 (H) Glucose 09/15/2024 85 BUN 09/15/2024 49 (H) Creatinine 09/15/2024 1.93 (H) Sodium 09/15/2024 142 Potassium 09/15/2024 5.6 (H) Chloride 09/15/2024 111 (H) CO2 09/15/2024 18 (L) Anion Gap 09/15/2024 13 Estimated Glomerular Anthony* 09/15/2024 26 (L) NT Pro BNP 09/15/2024 783 (H) Results Only on 08/22/2024 Component Date Value Protein, Total 08/22/2024 6.2 (L) Albumin 08/22/2024 3.5 (L) Calcium, Total 08/22/2024 8.7 Bilirubin, Total 08/22/2024 0.2 Alkaline Phosphatase 08/22/2024 87 AST 08/22/2024 26 ALT 08/22/2024 20 Glucose 08/22/2024 73 (L) BUN 08/22/2024 37 (H) Creatinine 08/22/2024 1.77 (H) Sodium 08/22/2024 142 Potassium 08/22/2024 3.7 Chloride 08/22/2024 113 (H) CO2 08/22/2024 17 (L) Anion Gap 08/22/2024 12 Estimated Glomerular Anthony* 08/22/2024 28 (L) Cholesterol, Total 08/22/2024 114 Triglyceride 08/22/2024 108 HDL Cholesterol 08/22/2024 37 (L) LDL Cholesterol, Calcula* 08/22/2024 57 Non HDL Cholesterol 08/22/2024 77 VLDL Cholesterol 08/22/2024 16 TC:HDL Ratio 08/22/2024 3.08 LDL:HDL Ratio 08/22/2024 1.54 Fasting Time 08/22/2024 6 TSH 08/22/2024 3.360 Free T4 08/22/2024 1.4 Color 08/22/2024 Yellow Clarity 08/22/2024 Clear Glucose, Urine 08/22/2024 Negative Bilirubin, Urine 08/22/2024 Negative Ketones, Urine 08/22/2024 Negative Specific [place], Ur 08/22/2024 1.010 Hemoglobin/Blood,Ur 08/22/2024 Negative pH, Urine 08/22/2024 5.5 Protein, Urine 08/22/2024 Negative Urobilinogen 08/22/2024 0.2 EU/dL Nitrites 08/22/2024 Negative Leuk Esterase 08/22/2024 2+ (A) WBC, Urine 08/22/2024 11-20 /HPF (A) RBC, Urine 08/22/2024 0-2 /HPF Bacteria uL 08/22/2024 >9,821 (H) Squamous Epithelial Cells 08/22/2024 None Seen Casts, Hyaline 08/22/2024 1-3 /LPF (A) WBC 08/22/2024 7.12 RBC 08/22/2024 2.99 (L) Hemoglobin 08/22/2024 9.4 (L) Hematocrit 08/22/2024 31.1 (L) MCV 08/22/2024 104.0 (H) MCH 08/22/2024 31.4 MCHC 08/22/2024 30.2 (L) RDW-CV 08/22/2024 16.4 (H) Platelet Count 08/22/2024 233 MPV 08/22/2024 13.1 (H) Absolute nRBC 08/22/2024 <0.01 Culture, Urine 08/22/2024 >=100,000 CFU/ml Escherichia coli (A) ASSESSMENT/PLAN: 1. BENIGN HYPERTENSION(aka HTN) - ICD9: 401.1, ICD10: I10 (primary diagnosis) - Controlled - Continue current medications - Recommend home blood pressure monitoring, to bring results to next visit - Encouraged sodium restriction, DASH or Mediterranean diet - Recommend regular aerobic exercise - COMPREHENSIVE METABOLIC PANEL - COMPLETE BLOOD COUNT 2. Lumbar spondylosis - ICD9: 721.3, ICD10: M47.816 - GABAPENTIN 300 MG CAPSULE 3. Myofascial pain - ICD9: 729.1, ICD10: M79.18 Continue current medications. - GABAPENTIN 300 MG CAPSULE 4. Hypothyroidism, acquired - ICD9: 244.9, ICD10: E03.9 - Instructed patient on importance of taking on an empty stomach either first thing in the morning or at bedtime. - continue current dose of Synthroid 0.125 mg 5. Anemia in chronic kidney disease, unspecified CKD stage - ICD9: 285.21, ICD10: N18.9, D63.1 - eGFR: 26 Stable Monitor labs - COMPLETE BLOOD COUNT 6. CKD (chronic kidney disease) stage 4, GFR 15-29 ml/min ([facility]) - ICD9: 585.4, ICD10: N18.4 - eGFR: 26 Stable Monitro labs Follow with Nephrology - COMPREHENSIVE METABOLIC PANEL - COMPLETE BLOOD COUNT 7. Bilateral leg edema - ICD9: 782.3, ICD10: R60.0 Stable Go back to Lasix 40 mg every other day BNP slightly elevated, but recent echos have shown normal EF and systolic/diastolic function 8.Cough Continue prednisone,call if not continuing to improve Follow up in 1 month I agree with the Chief Complaint, ROS, and Past Histories independently gathered by the clinical office support assistant and the remaining scribed note accurately describes my personal service to the patient. Medical Decision Making: Problems: Moderate: 2+ stable chronic illnesses Data: Unique test result(s) reviewed: 3+ Unique test(s) ordered: 2 Risk: Moderate: Drug management Medical Decision Making Level: 4 - Moderate Lizy Capone MD The documentation for this note was completed by Alex Lackey MA acting as scribe for Lizy Capone MD. September 22, 2024 2:21 PM. Alex Lackey MA documented in this encounterCleveland Clinic [facility]2025 NoteHNO ID: [id number] Author: LIZY CAPONE MD Service: ? Author Type: Physician Type: Progress Notes Filed: 09/22/2024 17:14 Note Text: Chief Complaint Patient presents with: F/U 1 month HPI Mari Lopez is a 84 year old female who presents here today for 1 month follow up. Here today with Alex, who friend. Pt is using a walker to get around. She did have a fall, her knees became shaky and gave out. She has swelling of the feet and ankles. Has been dealing with cough, saw Michael Carter on 09/15/24. She had blood work done and CXR done. She is still wheezing and coughing that has been ongoing x 3 weeks. Michael prescribed Azithromycin and Amoxicillin and then PCP gave her Doxycycline x 2 weeks. She thinks that the first 2 medications helped better but still not improved. She started on prednisone 2 days ago and feels that this has helped. Was suppose to have right shoulder surgery in July but was hospitalized and unable to have the surgery completed. Pt has chronic UTI, follows with Urologist Dr. Chayo Hernandez. Follows with Cardiology and Nephrology Past medical history, appointments, medications, allergies reviewed. [...] CONDYLEANDPLATU MEDIALANDLAT COMPARTMENTS 1990 bilateral total knee s([place]) ARTHRP KNE CONDYLEANDPLATU MEDIALANDLAT COMPARTMENTS 10/24/2004 bilateral total knee revisions DELIVERY ONLY , low cervical CHOLECYSTECTOMY COLONOSCOPY FLX DX W/COLLJ SPEC WHEN PFRMD 11/17/2017 Colonoscopy DEBRIDEMENT SUBCUTANEOUS TISSUE 20 SQ CM/< 02/17/2007 LEFT LEG DEBRIDEMENT SUBCUTANEOUS TISSUE 20 SQ CM/< 02/20/2007 LEFT LEG DEBRIDEMENT SUBCUTANEOUS TISSUE 20 SQ CM/< 02/24/2007 LEFT LEG DEBRIDEMENT SUBCUTANEOUS TISSUE 20 SQ CM/< 02/26/2007 LEFT LEG DEBRIDEMENT SUBCUTANEOUS TISSUE 20 SQ CM/< 03/01/2007 LEFT LEG DEBRIDEMENT SUBCUTANEOUS TISSUE 20 SQ CM/< 03/03/2007 LEFT LEG ESOPHAGOGASTRODUODENOSCOPY TRANSORAL DIAGNOSTIC 11/17/2017 EGD GASTRIC BYPASS 07/2003 HEMORRHOIDECTOMY INTERNAL RUBBER BAND LIGATIONS HYSTEROSCOPY BX W/WO DANDC 01/07/2018 PAST SURGICAL HISTORY OF 04/10/2016 [place] and new knee cap put in right leg PAST SURGICAL HISTORY OF 04/25/2016 had to debri right leg wound with cellutitis infection SHOULDER SURGERY HX Left 02/22/[address] left reverse total shoulder. Dr. Klaus Omalley with [facility] Family History FAMILY HISTORY Problem Relation Age of Onset Cancer Mother ovarian Patient Allergies ALLERGIES Allergen Reactions Bactrim [Sulfametho* Hives Blisters: head to toe Ibuprofen Rash Kefzol [Cefazolin S* Hives Peanut Anaphylaxis Sulfa (Sulfonamide * Hives, Unknown Blisters: head to toe Current Medications Current Outpatient Medications on File Prior to Visit Medication Sig azithromycin (ZITHROMAX) 250 mg tablet Take 2 tablets by mouth once daily for 1 day, THEN 1 tablet once daily for 4 days. amoxicillin-clavulanate potassium (AUGMENTIN) 875-125 mg per tablet Take 1 tablet by mouth two times a day for 5 days. guaiFENesin (MUCINEX) 600 mg 12 hr tablet Take 1 tablet by mouth two times a day. zolpidem (AMBIEN) 10 mg Take 1 tablet by mouth at bedtime as needed for up to 90 days. benzonatate (TESSALON PERLE) 100 mg capsule Take 1 capsule by mouth three times a day as needed for cough for up to 12 doses. atorvastatin (LIPITOR) 40 mg tablet Take 1 tablet by mouth once daily. bisacodyl (DULCOLAX) 10 mg supp 1 suppository by RECTAL route once daily as needed for constipation. calcium acetate,phosphat bind, (PHOSLO) 667 mg capsule Take 1 capsule by mouth three times a day. carvedilol (COREG) 6.25 mg tablet Take 1 tablet by mouth every 12 hours. cholecalciferol (VITAMIN D3) 1,000 unit tab tablet Take 2 tablets by mouth once daily. ferrous sulfate 325 mg (65 mg iron) tablet Take 1 tablet by mouth once daily. furosemide (LASIX) 40 mg tablet Take 1 tablet by mouth every other day. lacosamide (VIMPAT) 100 mg tab Take 1 tablet by mouth every 12 hours for 180 days. levothyroxine (LEVOXYL) 125 mcg tablet Take 1 tablet by mouth once daily. Take on empty stomach. For thyroid. mirtazapine (REMERON) 7.5 mg tablet Take 1 tablet by mouth daily at bedtime. levonorgestrel (MIRENA) 21 mcg/24hr (up to 8 yrs) 52 mg IUD 1 each by INTRAUTERINE route one time only for 1 dose. magnesium hydroxide (MOM) 400 mg/5 mL (more content not included)...[facility]06-17-2025 Telephone encounter Note* Telephone Encounter - Lizy Capone MD - 09/20/2024 2:17 PM EDT Please notify patient's caregiver that her lab results show that her WBC is OK, so it does not showsigns of infection. Her CXR shows inflammation and some increased fluid. I would like to start her on prednisone 40 mg daily for 5 days, and have her increase her lasix to 40 mg daily . She has appt in 2 days Discussed with pt's caregiver who had stopped in the office Lizy Capone MD [facility]06-17-2025 Miscellaneous Notes* Telephone Encounter - Lizy Capone MD - 09/20/2024 2:17 PM EDT Please notify patient's caregiver that her lab results show that her WBC is OK, so it does not showsigns of infection. Her CXR shows inflammation and some increased fluid. I would like to start her on prednisone 40 mg daily for 5 days, and have her increase her lasix to 40 mg daily . She has appt in 2 days Discussed with pt's caregiver who had stopped in the office Lizy Capone MD documented in this encounterCleveland Clinic [facility]06-12-2025 NoteHNO ID: [id number] Author: MICHAEL CARTER APRN.DIGITAL DATA ANALYST Service: ? Author Type: Nurse Practitioner Type: Progress Notes Filed: 09/15/2024 14:04 Note Text: Chief Complaint Patient presents with: Follow Up HPI Mari Lopez is a 84 year old female who presents here today for Above Complaints. Patient presents for follow up. Patient reports she has completed 2 rounds of antibiotics for PNA with no improvement symptoms. Continues to cough up green phlegm, SOB with exertion. Does not monitor weight on regular basis, follows with [facility]. Also reports surgical procedure in July for wound that included skin graft with Dr. Lomax. Past medical history, appointments, medications, allergies reviewed. [...] CONDYLEANDPLATU MEDIALANDLAT COMPARTMENTS 1990 bilateral total knee s([place]) ARTHRP KNE CONDYLEANDPLATU MEDIALANDLAT COMPARTMENTS 10/24/2004 bilateral total knee revisions DELIVERY ONLY , low cervical CHOLECYSTECTOMY COLONOSCOPY FLX DX W/COLLJ SPEC WHEN PFRMD 11/17/2017 Colonoscopy DEBRIDEMENT SUBCUTANEOUS TISSUE 20 SQ CM/< 02/17/2007 LEFT LEG DEBRIDEMENT SUBCUTANEOUS TISSUE 20 SQ CM/< 02/20/2007 LEFT LEG DEBRIDEMENT SUBCUTANEOUS TISSUE 20 SQ CM/< 02/24/2007 LEFT LEG DEBRIDEMENT SUBCUTANEOUS TISSUE 20 SQ CM/< 02/26/2007 LEFT LEG DEBRIDEMENT SUBCUTANEOUS TISSUE 20 SQ CM/< 03/01/2007 LEFT LEG DEBRIDEMENT SUBCUTANEOUS TISSUE 20 SQ CM/< 03/03/2007 LEFT LEG ESOPHAGOGASTRODUODENOSCOPY TRANSORAL DIAGNOSTIC 11/17/2017 EGD GASTRIC BYPASS 07/2003 HEMORRHOIDECTOMY INTERNAL RUBBER BAND LIGATIONS HYSTEROSCOPY BX W/WO DANDC 01/07/2018 PAST SURGICAL HISTORY OF 04/10/2016 [place] and new knee cap put in right leg PAST SURGICAL HISTORY OF 04/25/2016 had to debri right leg wound with cellutitis infection SHOULDER SURGERY HX Left 02/22/[address]24 left reverse total shoulder. Dr. Klaus Omalley with [facility] Family History FAMILY HISTORY Problem Relation Age of Onset Cancer Mother ovarian Patient Allergies ALLERGIES Allergen Reactions Bactrim [Sulfametho* Hives Blisters: head to toe Ibuprofen Rash Kefzol [Cefazolin S* Hives Peanut Anaphylaxis Sulfa (Sulfonamide * Hives, Unknown Blisters: head to toe Current Medications Current Outpatient Medications on File Prior to Visit Medication Sig benzonatate (TESSALON PERLE) 100 mg capsule Take 1 capsule by mouth three times a day as needed for cough for up to 12 doses. atorvastatin (LIPITOR) 40 mg tablet Take 1 tablet by mouth once daily. bisacodyl (DULCOLAX) 10 mg supp 1 suppository by RECTAL route once daily as needed for constipation. calcium acetate,phosphat bind, (PHOSLO) 667 mg capsule Take 1 capsule by mouth three times a day. carvedilol (COREG) 6.25 mg tablet Take 1 tablet by mouth every 12 hours. cholecalciferol (VITAMIN D3) 1,000 unit tab tablet Take 2 tablets by mouth once daily. ferrous sulfate 325 mg (65 mg iron) tablet Take 1 tablet by mouth once daily. furosemide (LASIX) 40 mg tablet Take 1 tablet by mouth every other day. lacosamide (VIMPAT) 100 mg tab Take 1 tablet by mouth every 12 hours for 180 days. levothyroxine (LEVOXYL) 125 mcg tablet Take 1 tablet by mouth once daily. Take on empty stomach. For thyroid. mirtazapine (REMERON) 7.5 mg tablet Take 1 tablet by mouth daily at bedtime. levonorgestrel (MIRENA) 21 mcg/24hr (up to 8 yrs) 52 mg IUD 1 each by INTRAUTERINE route one time only for 1 dose. magnesium hydroxide (MOM) 400 mg/5 mL suspension Take 30 mL by mouth once daily as needed. fluorometholone (FML LIQUID FILM) 0.1 % ophthalmic suspension Use 1 drop in both eyes two times a day. nitroglycerin sublingual (NITROQUICK) 0.4 mg SL tablet Dissolve 0.4 mg under the tongue every 5 minutes as needed for chest pain. polyethylene glycol 3350 (MIRALAX) 17 gram/dose powder Take by mouth once daily. Dissolve dose in 4 - 8 ounces of liquid and take as directed. acetaminophen (TYLENOL) 500 mg tablet Take 1,000 mg by mouth twice daily. Diaper,Brief, Adult,Disposable (DEPEND UNDERWEAR FOR WOMEN XL) Use 5/day as needed for urinary incontinence COMPOUNDED PRESCRIPTION Stair lift senna-docusate (SENNA-S) 8.6-50 mg per tablet Take 1 tablet by mouth once daily. No current facility-administered medications on file prior to visit. Social History Social History Tobacco Use Smoking status: For (more content not included)...[facility] 09-15-2024 History of Present illness Narrative* Michael Carter APRN.[facility] - 09/15/2024 1:47 PM EDT Chief Complaint Patient presents with: Follow Up HPI Mari Lopez is a 84 year old female who presents here today for Above Complaints. Patient presents for follow up. Patient reports she has completed 2 rounds of antibiotics for PNA with no improvement symptoms. Continues to cough up green phlegm, SOB with exertion. Does not monitorweight on regular basis, follows with [facility]. Also reports surgical procedure in July for wound that included skin graft with Dr. Lomax. Past medical history, appointments, medications, allergies reviewed. [...] CONDYLE&PLATU MEDIAL&LAT COMPARTMENTS 1990 bilateral total knee s([place]) ARTHRP KNE CONDYLE&PLATU MEDIAL&LAT COMPARTMENTS 10/24/2004 bilateral total knee revisions DELIVERY ONLY , low cervical CHOLECYSTECTOMY COLONOSCOPY FLX DX W/COLLJ SPEC WHEN PFRMD 11/17/2017 Colonoscopy DEBRIDEMENT SUBCUTANEOUS TISSUE 20 SQ CM/< 02/17/2007 LEFT LEG DEBRIDEMENT SUBCUTANEOUS TISSUE 20 SQ CM/< 02/20/2007 LEFT LEG DEBRIDEMENT SUBCUTANEOUS TISSUE 20 SQ CM/< 02/24/2007 LEFT LEG DEBRIDEMENT SUBCUTANEOUS TISSUE 20 SQ CM/< 02/26/2007 LEFT LEG DEBRIDEMENT SUBCUTANEOUS TISSUE 20 SQ CM/< 03/01/2007 LEFT LEG DEBRIDEMENT SUBCUTANEOUS TISSUE 20 SQ CM/< 03/03/2007 LEFT LEG ESOPHAGOGASTRODUODENOSCOPY TRANSORAL DIAGNOSTIC 11/17/2017 EGD GASTRIC BYPASS 07/2003 HEMORRHOIDECTOMY INTERNAL RUBBER BAND LIGATIONS HYSTEROSCOPY BX W/WO D&C 01/07/2018 PAST SURGICAL HISTORY OF 04/10/2016 [place] and new knee cap put in right leg PAST SURGICAL HISTORY OF 04/25/2016 had to debri right leg wound with cellutitis infection SHOULDER SURGERY HX Left 02/22/2024 left reverse total shoulder. Dr. Klaus Omalley with [facility] Family History FAMILY HISTORY Problem Relation Age of Onset Cancer Mother ovarian Patient Allergies ALLERGIES Allergen Reactions Bactrim [Sulfametho* Hives Blisters: head to toe Ibuprofen Rash Kefzol [Cefazolin S* Hives Peanut Anaphylaxis Sulfa (Sulfonamide * Hives, Unknown Blisters: head to toe Current Medications Current Outpatient Medications on File Prior to Visit Medication Sig benzonatate (TESSALON PERLE) 100 mg capsule Take 1 capsule by mouth three times a day as needed forcough for up to 12 doses. atorvastatin (LIPITOR) 40 mg tablet Take 1 tablet by mouth once daily. bisacodyl (DULCOLAX) 10 mg supp 1 suppository by RECTAL route once daily as needed for constipation. calcium acetate,phosphat bind, (PHOSLO) 667 mg capsule Take 1 capsule by mouth three times a day. carvedilol (COREG) 6.25 mg tablet Take 1 tablet by mouth every 12 hours. cholecalciferol (VITAMIN D3) 1,000 unit tab tablet Take 2 tablets by mouth once daily. ferrous sulfate 325 mg (65 mg iron) tablet Take 1 tablet by mouth once daily. furosemide (LASIX) 40 mg tablet Take 1 tablet by mouth every other day. lacosamide (VIMPAT) 100 mg tab Take 1 tablet by mouth every 12 hours for 180 days. levothyroxine (LEVOXYL) 125 mcg tablet Take 1 tablet by mouth once daily. Take on empty stomach. For thyroid. mirtazapine (REMERON) 7.5 mg tablet Take 1 tablet by mouth daily at bedtime. levonorgestrel (MIRENA) 21 mcg/24hr (up to 8 yrs) 52 mg IUD 1 each by INTRAUTERINE route one time only for 1 dose. magnesium hydroxide (MOM) 400 mg/5 mL suspension Take 30 mL by mouth once daily as needed. fluorometholone (FML LIQUID FILM) 0.1 % ophthalmic suspension Use 1 drop in both eyes two times a day. nitroglycerin sublingual (NITROQUICK) 0.4 mg SL tablet Dissolve 0.4 mg under the tongue every 5 minutes as needed for chest pain. polyethylene glycol 3350 (MIRALAX) 17 gram/dose powder Take by mouth once daily. Dissolve dose in 4- 8 ounces of liquid and take as directed. acetaminophen (TYLENOL) 500 mg tablet Take 1,000 mg by mouth twice daily. Diaper,Brief, Adult,Disposable (DEPEND UNDERWEAR FOR WOMEN XL) Use 5/day as needed for urinary incontinence COMPOUNDED PRESCRIPTION Stair lift senna-docusate (SENNA-S) 8.6-50 mg per tablet Take 1 tablet by mouth once daily. No current facility-administered medications on file prior to visit. Social History Social History Tobacco Use Smoking status: Former Current packs/day: 0.00 Average packs/day: 0.3 packs/day for 1 year (0.3 ttl pk-yrs) Types: Cigarettes Start date: 04/06/1952 Quit date: 04/06/1953 Years since quittin.4 Smokeless tobacco: Never Vaping Use Vaping status: Never Used Substance Use Topics Alcohol use: Yes Comment: occasionally Drug use: No Comment: used drugs for 3 years Review of Symptoms REVIEW OF SYSTEMS SEE HPI EXAM: BP 112/67 Pulse 72 Wt 105.7 kg (233 lb) SpO2 95% BMI 42.62 kg/m General Appearance: Well appearing, alert, in no acute distress, well-hydrated, well nourished.. Lungs: Positive findings: fine crackles Shortness of breath: Upon exertion. Productive cough with green thick mucus. Heart: RRR without murmur, gallop, or rubs. No ectopy. Extremities: Edema: Nonpitting edema to bilateral lower extremities. Health Maintenance List Medicare Annual Wellness Visit Never done Shingrix Vaccine(2 of 3) due on 07/12/2009 Advance Directive Discussion due on 04/06/2024 Depression Screening due on 07/21/2024 Anxiety Screening due on 07/21/2024 Covid-19 Vaccine( season) due on 07/28/2024 Diabetes Screening due on 08/23/2027 DTaP,Tdap,Td Vaccine(2 - Td or Tdap) due on 09/01/2027 Bone Density Screening Completed Influenza Vaccine Completed RSV Vaccine Completed Pneumococcal Vaccine: 50+ Completed Colorectal Cancer Screening Discontinued ASSESSMENT/PLAN: 1. Subacute cough - ICD9: 786.2, ICD10: R05.2 (primary diagnosis) - NT PRO BNP 2. Leg swelling - ICD9: 729.81, ICD10: M79.89 - NT PRO BNP 3. SOB (shortness of breath) - ICD9: 786.05, ICD10: R06.02 - NT PRO BNP 4. Lower respiratory infection - ICD9: 519.8, ICD10: J22 - AZITHROMYCIN 250 MG TABLET - AMOXICILLIN 875 MG-POTASSIUM CLAVULANATE 125 MG TABLET Complete labs previously ordered by Dr. Capone as well. Michael Carter APRN.DIGITAL DATA ANALYST documented in this encounterCleveland Clinic [facility]06-12-2025 Telephone encounter Note * Telephone Encounter - Analia Gracia RN - 09/15/2024 9:32 AM EDT Pts friend Alex called and is notified of providers message and instructions. She voices understanding. Tried to get her in with Dr Capone, but friend said there is no way she would be able tip ready by those appointment times. Pt scheduled with Michael Carter HOUSEKEEPER NANNY. Analia Gracia RN [facility]06-12-2025 Miscellaneous Notes* Telephone Encounter - Analia Gracia RN - 09/15/2024 9:32 AM EDT Pts friend Alex called and is notified of providers message and instructions. She voices understanding. Tried to get her in with Dr Capone, but friend said there is no way she would be able tip ready by those appointment times. Pt scheduled with Michael Carter [employer]SEKEEPER NANNY. Analia Gracia RN * Telephone Encounter - Samuel Gonzalez DO - 09/14/2024 9:20 PM EDT I think she needs to be assessed in the office. There are no definite signs of pneumonia, but clinical exam is needed to correlate and listen to her to make this judgement Samuel Gonzalez DO * Telephone Encounter - Analia Gracia RN - 09/14/2024 12:57 PM EDT Pt called in asking for her chest x-ray results. She states she thinks she has pneumonia. Please call and advise. Analia Gracia RN documented in this encounterCleveland Clinic [facility]06-11-2025 Telephone encounter Note * Telephone Encounter - Samuel Gonzalez DO - 09/14/2024 9:20 PM EDT I think she needs to be assessed in the office. There are no definite signs of pneumonia, but clinical exam is needed to correlate and listen to her to make this judgement Samuel Gonzalez DO [facility] Work Phone: [phone] 553-433206-11-2025 Telephone encounter Note* Telephone Encounter - Analia Gracia RN - 09/14/2024 12:57 PM EDT Pt called in asking for her chest x-ray results. She states she thinks she has pneumonia. Please call and advise. Analia Gracia RN [facility]06-09-2025 History of Present illness Narrative* Alcon Santiago RT(R) - 09/12/2024 4:00 PM EDT Radiology Service Progress Note PATIENT NAME: Mari Lopez DATE OF SERVICE: September 12, 2024 TIME: 3:52 PM PATIENT IDENTITY VERIFICATION COMPLETED USING TWO (2) IDENTIFIERS: Name and Date of confirmedby patient verbally. FALL SCREENING: Has the patient had 2 falls in the last year or 1 fall with injury or currently using an Ambulatory Assistive Device (Walker, Cane, Wheelchair, Crutches, etc.)? Yes, Patient High Riskfor Falls What interventions were put in place to prevent falls during this visit? Offered Assistance with Transfers/Clothing, Instructed Patient to Remain Seated (Not on Exam Table) Until Exam, and did sitting in chair PATIENT GENDER DATA: Assigned female at . status: : No status:NO. PATIENT RELEVANT IMPLANT DATA REVIEWED: Not Applicable PATIENT PRESENTS WITH AN IMPLANTABLE OR ATTACHED TRACKMAN: No RADIOLOGY DEPARTMENT: General X-ray: Exam(s) Completed: Chest X-Ray PERIPHERAL IV DATA: Not applicable SIGNED BY: RT Gracy(R) September 12, 2024 3:52 PM documented in this encounterCleveland Clinic [facility]06-09-2025 NoteHNO ID: [id number] Author: ALCON SANTIAGO RT(Musa) Service: Radiology Author Type: Technologist Type: Progress Notes Filed: 09/12/2024 16:12 Note Text: Radiology Service Progress Note PATIENT NAME: Mari Lopez DATE OF SERVICE: September 12, 2024 TIME: 3:52 PM PATIENT IDENTITY VERIFICATION COMPLETED USING TWO [...] falls during this visit? Offered Assistance with Transfers/Clothing, Instructed Patient to Remain Seated (Not on Exam Table) Until Exam, and did sitting in chair PATIENT GENDER DATA: Assigned female at . status: : No status: NO. PATIENT RELEVANT IMPLANT DATA REVIEWED: Not Applicable PATIENT PRESENTS WITH AN IMPLANTABLE OR ATTACHED TRACKMAN: No RADIOLOGY DEPARTMENT: General X-ray: Exam(s) Completed: Chest X-Ray PERIPHERAL IV DATA: Not applicable SIGNED BY: RT Gracy(R) September 12, 2024 3:52 [facility]CM[facility]-2025 Telephone encounter Note* Telephone Encounter - Alex Lackey MA - 09/12/2024 2:43 PM EDT Pt notified. Alex Lackey MA [facility]06-09-2025 Miscellaneous Notes* Telephone Encounter - Alex Lackey MA - 09/12/2024 2:43 PM EDT Pt notified. Alex Lackey MA * Telephone Encounter - Lizy Capone MD - 09/12/2024 2:29 PM EDT OK for CXR as ordered Lizy Capone MD * Telephone Encounter - Adela Pena LPN - 09/12/2024 1:54 PM EDT Patient calling asking if PCP would give her order for chest xray. Patient is taking her second round of antibiotics, Doxycycline twice daily. She completes rx tomorrow, no fever, coughing up green secretions, wheezing. Patient said she is taking robitussin cough syrup which is not helping much. Offered appt patient said she has one next week with PCP. She wants to have chest xray done. Please advise documented in this encounterCleveland Clinic [facility]06-09-2025 Telephone encounter Note * Telephone Encounter - Lizy Capone MD - 09/12/2024 2:29 PM EDT OK for CXR as ordered Lizy Capone MD [facility]06-09-2025 Telephone encounter Note* Telephone Encounter - dAela Pena LPN - 09/12/2024 1:54 PM EDT Patient calling asking if PCP would give her order for chest xray. Patient is taking her second round of antibiotics, Doxycycline twice daily. She completes rx tomorrow, no fever, coughing up green secretions, wheezing. Patient said she is taking robitussin cough syrup which is not helping much. Offered appt patient said she has one next week with PCP. She wants to have chest xray done. Please advise [facility]06-[facility] Telephone encounter Note* Telephone Encounter - Analia Gracia RN - 09/08/2024 4:00 PM EDT Rosina with [facility] and Pt called and notified of providers message. They voice understanding. Analia Gracia RN [facility]06-05-2025 Miscellaneous Notes* Telephone Encounter - Analia Garcia RN - 09/08/2024 4:00 PM EDT Rosina with [facility] and Pt called and notified of providers message. They voice understanding. Analia Gracia RN * Telephone Encounter - Lizy Capone MD - 09/08/2024 3:54 PM EDT OK for continuation of both medications; Rxs sent to pharmacy Lizy Capone MD * Telephone Encounter - Josselin Baxter RN - 09/07/2024 1:48 PM EDT Rosina with [facility] calling with pt update for PCP. Patient was evaluated in [facility] on 09/04/24 and was wasordered doxycycline and benzonatate for lower respiratory infection. At that time, [facility] provider did consider sending pt to ER, but after further assessment and strict precautions explained during visit, patient was able to return home. Rosina would like PCP to know that patient still has course crackles in lower lung areas, more in the right than left, and having green sputum production. No severe sx's noted. Pt is to complete her antibiotic tomorrow. Pt's NOV is scheduled with Dr. Capone on 09/22. Please call Nurse Rosina if PCP would aleyda to extend treatment or for any other orders. [phone]. Josselin Baxter RN [facility] Telephone encounter Note * Telephone Encounter - Lizy Capone MD - 09/08/2024 3:54 PM EDT OK for continuation of both medications; Rxs sent to pharmacy Lizy Capone MD [facility]06-04-2025 Telephone encounter Note* Telephone Encounter - Josselin Baxter RN - 09/07/2024 1:48 PM EDT Rosina with [facility] calling with pt update for PCP. Patient was evaluated in EC on 09/04/24 and was wasordered doxycycline and benzonatate for lower respiratory infection. At that time, EC provider did consider sending pt to ER, but after further assessment and strict precautions explained during visit, patient was able to return home. Rosina would like PCP to know that patient still has course crackles in lower lung areas, more in the right than left, and having green sputum production. No severe sx's noted. Pt is to complete her antibiotic tomorrow. Pt's NOV is scheduled with Dr. Capone on 09/22. Please call Nurse Rosina if PCP would aleyda to extend treatment or for any other orders. [phone]. Josselin Baxter RN [facility]06-03-2025 Consult note Author Robinson Hyman [facility] Note Date/Time September 06, 2024 8:56a m [facility] Medical Records Department [address] [place] [address] Pre-Anesthesia Evaluation 09/06/24 0844 MR#: [id number] Acct: [id number] Name: MARI LOPEZ Rep #:[id number] : 1940 84 From: Robinson Hyman MD PCP: BROOKLYN Aguillon Status:REG S DC Y Race: C Location: [facility]04-1 ASA Classification* ASA Classification ASA Classification: 3 Assessment & Plan Anesthesia* Anesthesia Assessment Anesthesia Assessment: Discussed sedation and/or anesthesia options, risks, benefits, and alternatives with patient/parents/legal guardian/POA. Questions invited. The patient/parents/legal guardian/POA seems to understand and agrees to proceedwith anesthesia plan. Reviewed the physical assessment, medical history, allergy history and patient home medications list prior to surgery/procedure/anesthetic and documented any changes. Performed airway and anesthesia risk assessments. Anesthesia Type Anesthesia Type: MAC History Source History Obtained from:: Patient and Chart Anesthesia Focused Assessment* Temperature: 97.9 F Pulse Rate: 72 Blood Pressure: 142/55 Respiratory Rate: 20 Pulse Ox: 97 Oxygen Delivery Method: Room Air Airway Assessment Mouth opens: >3 cm Mallampati Score: III Teeth Condition: Caps/Crowns (Multiple crowns and implants. They are all tight.) Neck Range of motion (ROM): Limited ROM (Somewhat decreased extension.) Focused Labs Anesthesia Preop lab: CBC WBC 5.0 K/mm3 (4.4-11.0) 08/22/24 05:35 08/22/24 RBC 2.74 M/mm3 (4.2-5.4) L 08/22/24 05:35 08/22/24 Hgb 8.7 g/dL (12.0-15.0) L 08/22/24 05:35 08/22/24 Hct 28.3 % (37-47) L 08/22/24 05:35 08/22/24 Plt Count 193 K/mm3 (150-450) 08/22/24 05:35 08/22/24 CHEMISTRY Potassium 3.5 mmol/L (3.3-5.1) 08/22/24 05:35 08/22/24 Sodium 143 mmol/L (133-145) 08/22/24 05:35 08/22/24 Magnesium 2.0 mg/dL (1.5-2.2) 06/13/24 05:19 06/13/24 Phosphorus 4.1 mg/dL (2.7-4.5) 06/13/24 05:19 06/13/24 BUN 38 mg/dL (4-19) H 08/22/24 05:35 08/22/24 Creatinine 1.86 mg/dL (0.70-1.20) H 08/22/24 05:35 Glucose 79 mg/dL (70-99) 08/22/24 05:35 08/22/24 TSH 1.750 uIU/mL (0.300-4.200) 07/25/24 05:16 /04/30 COAG PT 16.1 SECONDS (11.7-14.9) H 05/02/24 19:47 04/07 10/28 Pre-Assessment Diagnosis/Proposed Procedure Planned Operative Procedure(s): DEBRIDEMENT OF RIGHT LEG WOUND PLACEMENT OF SKINGRAFT Anesthesia History Anesthesia History - customer support analyst: Anesthesia History - customer support analyst Hx Hospitalization No 09/04/24 00:24 Any Problems With Anesthesia No 09/02/24 11:04 Cholinesterase deficiency No 09/02/24 11:04 You/Your Family Experience No 09/02/24 11:04 fever (hyperthermia) with Relationship Recent Exposure to Contagious No 09/06/24 08:12 Disease Does patient have nerve No 09/02/24 11:04 stimulator Patient instructed to have device shut off --Does patient have Pacemaker No 09/06/24 08:12 or ICD? When Was Last Pacemaker Check QUESTION #4 FULL TEXT: You/Your Family Experience fever (hyperthermia) with Anesthesia Last Oral Intake Last Oral intake: Last Oral Intake NPO since 20:00 09/06/24 08:12 Meds taken in AM with sips of Yes 09/06/24 08:12 water? Meds patient instructed to take am of surgery PONV PONV - customer support analyst: PONV - customer support analyst Female Yes 09/02/24 11:04 HX of Motion Sickness No 09/02/24 11:04 HX of N/V After Surgery No 09/02/24 11:04 Non-Smoker Yes 09/02/24 11:04 Duration of Surgery greater Yes 09/02/24 11:04 than 60 minutes Number of Risk Factors 3 09/02/24 11:04 PONV Score Moderate Risk 09/02/24 11:04 Height & Weight Height & Weight: Anesthesia: Height & Weight Height 4 ft 11 in 09/06/24 08:12 Weight: 105.687 kg 09/06/24 08:12 Body Mass Index (BMI) 47.0 09/06/24 08:12 Respiratory Assessment Respiratory Assessment - customer support analyst: Respiratory Tract Infection Hx - customer support analyst Hx Respiratory Tract Infection No 09/02/24 11:04 Any additional information?: Yes Hx Respiratory Tract Infection: Yes History of Anesthesia Respiratory Infection details: Patient was recently put on doxycycline for lung infection. She has only been on it for a couple days. STOP Sleep Apnea STOP Sleep Apnea - customer support analyst: STOP Sleep Apnea - customer support analyst Hx Hypertension Yes 09/04/24 00:24 Hx Sleep Apnea Yes 09/02/24 11:04 CPAP Yes: DOESNT WEAR SINCE 09/02/24 11:04 GASTRIC BYPASS BIPAP No 09/02/24 11:04 Do you snore loudly (louder than talking or can be heard Do you often feel tired/ fatigued/ sleepy during daytime? Has anyone observed you stop breathing during sleep? STOP Results Positive 09/02/24 11:04 QUESTION #5 FULL TEXT : Do you snore loudly (louder than talking or can be heard through closed doors)? Tobacco Use History Tobacco Use History - customer support analyst: Tobacco Use History - customer support analyst Tobacco Use Non-smoker 12/26/21 07:36 Smoking Status Never smoker 09/02/24 11:04 Hx Tobacco Use No 09/02/24 11:04 Years Smoking Packs Smoked per Day Smoking Cessation Date was within the last 15 years Hx Smoking Cessation Date Hx Smoking Cessation Counseling Hematologic Medial History Hematologic Hx - customer support analyst: Hematologic Medical Hx - financial sales representative Hx of Blood Transfusion Yes 09/02/24 11:04 Hx of Transfusion in last 3 No 09/02/24 11:04 Months Date of Last Transfusion (if within last 3 months) Ever experience any problems No 09/02/24 11:04 with transfusion(s)? Specify any problems Hx of Preganancy in last 3 No 09/02/24 11:04 Months Nurse Filling Out Transfusion DSCHRIBER 09/02/24 11:04 & Questions: Date: 09/02/24 09/02/24 11:04 Time: 11:07 09/02/24 11:04 Patient unable to answer at this time (ie. confused, unrespo /Reproduction History /Reproductive History - customer support analyst: /Reproductive Hx- customer support analyst Hx Now No 09/02/24 11:04 Gestational Age (in weeks): EDC: Hx Hx Para Hx Section SAB No 09/02/24 11:04 Active Medications Active Medications: Current Medications Generic Name Dose Route Start Last Admin Trade Name Freq PRN Reason Stop Dose Admin Clindamycin Phosphate 900 mg in 50 mls @ 75 mls/hr 09/06/24 09:00 Cleocin IV 09/06/24 09:39 INTRAOP ONE Lactated Ringer's 1,000 mls @ 15 mls/hr 09/06/24 07:45 09/06/24 08:31 IV 15 mls/hr .Q48H VALERIO Administration PFSH Medical History Wears glasses Post-menopausal Open wound Arthritis Walker as ambulation aid Bladder disease History of renal disease Anemia DVT (deep venous thrombosis) Low iron High cholesterol Back pain Seizures Hoarseness Non-smoker CPAP (continuous positive airway pressure) dependence Leg cramps History of edema History of echocardiogram History of stress test Cardiology follow-up encounter Urinary incontinence Osteopenia Spinal osteophytosis Status epilepticus Complicated urinary tract infection Osteoporosis Osteoarthritis Venous insufficiency of both lower extremities Hypothyroidism Pulmonary hypertension Diastolic dysfunction Elevated parathyroid hormone Metabolic acidosis Lymphedema Preop cardiovascular exam H/O hemorrhoids (HFpEF) heart failure with preserved ejection fraction History of pulmonary embolus (PE) COVID-19 (01/19/21) MRSA (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 Abdominal pain DVT (deep venous thrombosis) GERD (gastroesophageal reflux disease) Insomnia Obstructive sleep apnea Essential (primary) hypertension Incomplete left bundle branch block Morbid obesity with BMI of 45.0-49.9, adult Home Medications ?Medication ?Instructions ?Recorded ?Last Taken ?Type levonorgestrel (Mirena) 1 mcg intrauterine ONCE . Unknown History nitroglycerin 0.4 mg sublingual 0.4 mg sublingual Q5M PRN chest 06/27/22 Unknown Rx tablet pain #30 tabs polyethylene glycol 3350 17 gram 17 g PO DAILY bowel m obility #30 ea 06/09/23 02/24/24 Rx oral powder packet fluorometholone 0.1 % eye 1 drp ophthalmic (eye) BID e yes 02/24/24 09/05/24 History drops,suspension atorvastatin 40 mg tablet 40 mg PO QHS cholesterol 03/3009/05/24 History ferrous sulfate 324 mg (65 mg 324 mg PO DAILY Suppleme nt 05/18/24 09/05/24 History iron) tablet,delayed release levothyroxine 125 mcg tablet 125 mcg PO DAILY thyroid 05/18/24 09/05/24 History acetaminophen 325 mg tablet 650 mg (2 x 325 mg) PO TID #1 TAB 06/09/24 09/05/24 Rx apixaban 2.5 mg tablet (Eliquis) 2.5 mg PO BID #1 TAB 06/09/24 09/04/24 Rx bisacodyl 10 mg rectal suppository 10 mg MT X1 PRN Con stipation #1 ea 06/09/24 Unknown Rx calcium acetate(phosphat bind) 667 667 mg PO TIDCM #1 cap 06/09/24 Unknown Rx mg capsule carvedilol 3.125 mg tablet 3.125 mg PO BIDCM #1 TAB 09/05/24 Rx magnesium hydroxide 400 mg/5 mL 30 ml PO X1 PRN Consti pation #30 mL 06/09/24 Unknown Rx oral suspension mirtazapine 15 mg tablet 7.5 mg (1/2 x 15 mg) PO 2000 #1 TAB 06/09/24 09/05/24 Rx pantoprazole 40 mg tablet,delayed 40 mg PO DAILY #1 TA B 06/09/24 09/04/24 Rx release sennosides 8.6 mg-docusate sodium 2 tab PO BID #1 TAB 06/09/24 Unknown Rx 50 mg tablet (Stimulant Laxative Plus) zolpidem 5 mg tablet 5 mg PO QHS #20 tabs 5 09/04/24 Rx cholecalciferol (vitamin D3) 25 50 mcg PO DAILY supple ment 09/05/24 09/05/24 History mcg (1,000 unit) capsule dextromethorphan-guaifenesin 30 1 tab PO Q12H 09/05/24 Unknown History mg-600 mg tablet extended akewfbd07 hr (Mucinex DM) furosemide 40 mg tablet 40 mg PO Q OTHER DAY 5 09/05/24 History lacosamide 100 mg tablet 100 mg PO BID 09/05/2409/05 History ondansetron 4 mg disintegrating 4 mg PO Q6H 09/05/24 U nknown History tablet oxycodone 5 mg tablet 5 mg PO Q4H PRN PRN pain 05/31 Unknown History benzonatate 100 mg capsule 100 mg PO TID 09/06/24 Unkn own History doxycycline monohydrate 100 mg 100 mg PO BID 09/06/24 09/05/24 History capsule oxycodone 5 mg tablet 5 mg PO Q6H PRN pain 5 days #14 09/06/24 Unknown Rx tabs Allergy/AdvReac Type Severity Reaction Status Date / Time cefazolin (From Kefzol) Allergy Severe hives/difficulty Verified 09/06/24 07:54 swallowing ibuprofen Allergy Unknown Rash Verified 09/06/24 07:54 peanut Allergy Anaphylaxis Verified 09/06/24 07:54 Sulfa (Sulfonamide Allergy Unknown Verified 09/06/24 07:54 Antibiotics) sulfamethoxazole (From Allergy Other Verified 09/06/24 07:54 Bactrim) trimethoprim (From Bactrim) Allergy Other Verified 09/06/24 07:54 Family History Mother Cancer uterine Surgical History History of esophagogastroduodenoscopy (EGD) Hx of colonoscopy Hx of left cataract extraction History of dental surgery History of open reduction and internal fixation (ORIF) procedure History of cardiac catheterization Hx laparoscopic cholecystectomy H/O shoulder replacement History of left heart catheterization (08/01/22) History of dilatation and curettage History of hysteroscopy History of bilateral knee replacement History of herniorrhaphy Status post debridement History of open reduction and internal fixation (ORIF) procedure H/O hemorrhoidectomy History of gastric bypass Social History household members: other details: She has a roomate housing: house number of children: 1 current occupational status: retired pets and animals: Yes pets and animals: dog(s) Smoking Status: Never smoker alcohol intake: never substance use type: does not use caffeine: Yes Type: coffee Number of servings: 3 Review of Systems (Anesthesia) ROS Narrative System reviewed and no additional complaints, except as documented. Physical Exam Resp Auscultation: wheezes expiratory wheezes (Patient has expiratory wheezes on initial examination. DuoNeb breathing treatment did diminish these. However there are still present throughout.) 09/06/24 0856 <Electronically signed by Robinson padilla MD> Date _ Robinson [facility]yman [facility] Signature: Date CC: ~ Signed [facility] Work Phone: 1(365) 115-652706-03-2025 Procedure [facility] 09-06-2024 History and physical note Author Gonzalo [facility] Note Date/Time September 06, 2024 7:36a m [facility] Medical Records Department [address] [place] [address] H&P Exam - Surgical 09/06/24 0734 MR#: [id number] Acct: [id number] Name: MARI LOPEZ Rep #:[id number] : 1940 84 From: Gonzalo Lomax MD PCP: BROOKLYN Aguillon Status:REG S DC Location: [place] [address] HPI - General HPI Narrative History of Wound: Mari Lopez is a delightful 84-year-old female who presents today as a 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 The area filled with blood beneath the skin and the overlying skin slowly demarcated and became necrotic over the past several days. The initial treatment by the emergency department appears to be that they placed compression to prevent the hematoma from expanding with the hope that it would resorb. Today in clinic she denies having any fevers or chills. She reports that she isnot currently on any blood thinner (although she was on Eliquis in the past, andit does set her med list that she is on apixaban 2.5 mg twice daily) or antiplatelet agents at this time. She is not a smoker. Patient became acutely ill in April 2024 earlier this year from the flu and was hospitalized and intubated in the ICU. She has been recovering at a skillednursing facility near [facility] ever since. She was doing welloverall from a respiratory standpoint, and is attempting to regain her strength and ambulate more. She is ambulatory at baseline. She is not currently on any oxygen. Of note she has a previous history of a DVT PE. X-ray at the time of her injury from the emergency department demonstrated a total knee arthroplasty on the right but no acute osseous abnormalities. Patient is not having any acute bony pain at this time in the area of injury. 15 Aug 2024: Doing well overall and endorses good dressing changes with the twice daily Dakin's soaked Kerlix. No fevers or chills. 22 Aug 2024: Doing well overall and endorses good dressing changes at the residential. She is not interested in staying at the residential while the VAC therapy is in place and would like a home wound VAC. He understands the risk benefits and alternatives (all discussed with her today at this appointment) to discharge while she has high- level wound care requirements. 01 Sep 2024: Doing well overall. Endorses excellent VAC changes. Current Encounter (DATE OF SURGERY H&P UPDATE): I saw and examined the patient this morning in pre-operative holding. We discussed risks and benefits of today's surgery and they would like to proceed. NO CHANGE in health history sincelast seen and evaluated. Ready to proceed with surgery. [facility] Medical History Wears glasses Post-menopausal Open wound Arthritis Walker as ambulation aid Bladder disease History of renal disease Anemia DVT (deep venous thrombosis) Low iron High cholesterol Back pain Seizures Hoarseness Non-smoker CPAP (continuous positive airway pressure) dependence Leg cramps History of edema History of echocardiogram History of stress test Cardiology follow-up encounter Urinary incontinence Osteopenia Spinal osteophytosis Status epilepticus Complicated urinary tract infection Osteoporosis Osteoarthritis Venous insufficiency of both lower extremities Hypothyroidism Pulmonary hypertension Diastolic dysfunction Elevated parathyroid hormone Metabolic acidosis Lymphedema Preop cardiovascular exam H/O hemorrhoids (HFpEF) heart failure with preserved ejection fraction History of pulmonary embolus (PE) COVID-19 (01/19/21) MRSA (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 Abdominal pain DVT (deep venous thrombosis) GERD (gastroesophageal reflux disease) Insomnia Obstructive sleep apnea Essential (primary) hypertension Incomplete left bundle branch block Morbid obesity with BMI of 45.0-49.9, adult Home Medications ?Medication ?Instructions ?Recorded ?Last Taken ?Type levonorgestrel (Mirena) 1 mcg intrauterine ONCE . Unknown History nitroglycerin 0.4 mg sublingual 0.4 mg sublingual Q5M PRN chest 06/27/22 Unknown Rx tablet pain #30 tabs polyethylene glycol 3350 17 gram 17 g PO DAILY bowel m obility #30 ea 06/09/23 02/24/24 Rx oral powder packet fluorometholone 0.1 % eye 1 drp ophthalmic (eye) BID e yes 02/24/24 02/24/24 History drops,suspension atorvastatin 40 mg tablet 40 mg PO QHS cholesterol 03/3005/17/24 22:35 History ferrous sulfate 324 mg (65 mg 324 mg PO DAILY Suppleme nt 05/18/24 Unknown History iron) tablet,delayed release levothyroxine 125 mcg tablet 125 mcg PO DAILY thyroid 05/18/24 05/18/24 05:40 History acetaminophen 325 mg tablet 650 mg (2 x 325 mg) PO TID #1 TAB 06/09/24 Unknown Rx apixaban 2.5 mg tablet (Eliquis) 2.5 mg PO BID #1 TAB 06/09/24 Unknown Rx bisacodyl 10 mg rectal suppository 10 mg MT X1 PRN Con stipation #1 ea 06/09/24 Unknown Rx calcium acetate(phosphat bind) 667 667 mg PO TIDCM #1 cap 06/09/24 Unknown Rx mg capsule carvedilol 3.125 mg tablet 3.125 mg PO BIDCM #1 TAB Unknown Rx magnesium hydroxide 400 mg/5 mL 30 ml PO X1 PRN Consti pation #30 mL 06/09/24 Unknown Rx oral suspension mirtazapine 15 mg tablet 7.5 mg (1/2 x 15 mg) PO 2000 #1 TAB 06/09/24 Unknown Rx pantoprazole 40 mg tablet,delayed 40 mg PO DAILY #1 TA B 06/09/24 Unknown Rx release sennosides 8.6 mg-docusate sodium 2 tab PO BID #1 TAB 06/09/24 Unknown Rx 50 mg tablet (Stimulant Laxative Plus) zolpidem 5 mg tablet 5 mg PO QHS #20 tabs 5 Unknown Rx cholecalciferol (vitamin D3) 25 50 mcg PO DAILY supple ment 09/05/24 Unknown History mcg (1,000 unit) capsule dextromethorphan-guaifenesin 30 1 tab PO Q12H 09/05/24 Unknown History mg-600 mg tablet extended speimnc48 hr (Mucinex DM) furosemide 40 mg tablet 40 mg PO Q OTHER DAY 5 Unknown History lacosamide 100 mg tablet 100 mg PO BID 09/05/24 Unkno wn History ondansetron 4 mg disintegrating 4 mg PO Q6H 09/05/24 U nknown History tablet oxycodone 5 mg tablet 5 mg PO Q4H PRN PRN pain 05/31 Unknown History Allergy/AdvReac Type Severity Reaction Status Date / Time cefazolin (From Kefzol) Allergy Severe hives/difficulty Verified 09/05/24 08:42 swallowing ibuprofen Allergy Unknown Rash Verified 09/05/24 08:42 peanut Allergy Anaphylaxis Verified 09/05/24 08:42 Sulfa (Sulfonamide Allergy Unknown Verified 09/05/24 08:42 Antibiotics) sulfamethoxazole (From Allergy Other Verified 09/05/24 08:42 Bactrim) trimethoprim (From Bactrim) Allergy Other Verified 09/05/24 08:42 Family History Mother Cancer uterine Surgical History History of esophagogastroduodenoscopy (EGD) Hx of colonoscopy Hx of left cataract extraction History of dental surgery History of open reduction and internal fixation (ORIF) procedure History of cardiac catheterization Hx laparoscopic cholecystectomy H/O shoulder replacement History of left heart catheterization (08/01/22) History of dilatation and curettage History of hysteroscopy History of bilateral knee replacement History of herniorrhaphy Status post debridement History of open reduction and internal fixation (ORIF) procedure H/O hemorrhoidectomy History of gastric bypass Social History household members: other details: She has a roomate housing: house number of children: 1 current occupational status: retired pets and animals: Yes pets and animals: dog(s) Smoking Status: Never smoker alcohol intake: never substance use type: does not use caffeine: Yes Type: coffee Number of servings: 3 Physical Exam Narrative Right lower extremity examination: Vac in place holding suction Compartments of the leg are soft Motor: 5+ dorsiflexion and plantarflexion. Sensory exam: Sensation to light touch intact on the foot and ankle Vascular exam: 2+ dorsalis pedis and posterior tibial pulses Assessment & Plan Assessment/Plan (1) Wound of right lower extremity: PLAN: Continues to make significant improvement, especially with the wound VAC. There is now granulation tissue over the muscle. Ready for skin grafting. I reiterated the below risks with her today at our appointment and she would like to proceed with skin grafting: I talked the patient about the risks, benefits, and alternatives to skin grafting. We talked about the risk of skin graft failure, and need for debridement and continued wound care. She would like to proceed with skin graftversus doing continue dressing changes and wound care modalities (discussed TheraSkin and other dermal substitutes and continued wound VAC therapy, and she would like to do skin graft as this would get her potentially healed quicker). Italked to her also about the general risks of surgery, including bleeding, infection, damage to surrounding structures, poor scaring, surgical site dehiscence and wound formation, need for wound care, need for repeat operations,failure to obtain the desired result, DVT/PE, and the risks of anesthesia including , including stroke (from low blood pressure/ischemia or clot). The benefits and alternatives of this surgery were also discussed. All of their questions were answered, and they agreed to proceed with surgery. Plan for wound VAC 3 times per week VAC changes, and okay for home wound VAC. VAC should be changed 3 times per week (if discharged from residential will need home health 3 times per week for 3 times per week VAC changes) until there is a skin graft, at which time the skin graft VAC will remain for 1 week (will not be changed after the skin graft). Patient will continue to be seen weekly at the wound care center. Discussed signs and symptoms of infection and strict return precautions. Patient happy with the plan INTERVAL H&P PLAN, DATE OF SURGERY: We will proceed with surgery today. Discussed risks, benefits, and alternatives to skin graft. She would like to proceed. Understands risks of skin graft failure/need for continued wound care. She would like to proceed. 09/06/24 0736 <Electronically signed by Gonzalo Lomax MD> Cosigner Signature (if applicable): CC: BROOKLYN Orozco; Dr. Gonzalo Lomax MD~ Signed [facility] Work Phone: 1(914) 222-466606-02-2025 Telephone encounter Note* Telephone Encounter - Alex Lackey MA - 09/05/2024 3:15 PM EDT Pt notified and voiced understanding. Alex Lackey MA [facility]06-02-2025 Miscellaneous Notes* Telephone Encounter - Alex Lackey MA - 09/05/2024 3:15 PM EDT Pt notified and voiced understanding. Alex Lackey MA * Telephone Encounter - Lizy Capone MD - 09/05/2024 2:35 PM EDT Med list reviewed and prescriptions sent to [facility]. May stop Eliquis and Protonix Lizy Capone MD * Telephone Encounter - Alex Lackey MA - 09/05/2024 11:39 AM EDT Pt friend Claudia came into office today stating that pt was at the now clinic and saw Neuro and was advised at both those visits for PCP to review her meds to determine what she is to be taking and not be taking. See med list on desk. She is almost out of the medications she was given when discharged from hospital. Any meds she needs to stay on will need refilled to [facility]. Asking for this to be done BHUMIKA as she is almost out of medications. Alex Lackey MA documented in this encounterC[facility] Telephone encounter Note * Telephone Encounter - Lizy Capone MD - 09/05/2024 2:35 PM EDT Med list reviewed and prescriptions sent to [facility]. May stop Eliquis and Protonix Lizy Capone MD [facility]06-[facility] Telephone encounter Note* Telephone Encounter - Alex Lackey MA - 09/05/2024 11:39 AM EDT Pt friend Claudia came into office today stating that pt was at the now clinic and saw Neuro and was advised at both those visits for PCP to review her meds to determine what she is to be taking and not be taking. See med list on desk. She is almost out of the medications she was given when discharged from hospital. Any meds she needs to stay on will need refilled to [facility] [place]. Asking for this to be done BHUMIKA as she is almost out of medications. Alex Lackey MA [facility]06[facility] Telephone encounter Note* Telephone Encounter - Mulugeta Jennings APRN.CNP - 09/05/2024 7:24 AM EDT The following approved medication requests have been transmitted electronically. Requested Prescriptions Pending Prescriptions Disp Refills levothyroxine (LEVOXYL) 125 mcg tablet 90 tablet 3 Sig: Take 1 tablet by mouth once daily. Take on empty stomach. For thyroid. Mulugeta Jennings APRN.CNP [facility]06-02-[facility]25 Miscellaneous Notes* Telephone Encounter - Mulugeta Jennings APRN.CNP - 09/05/2024 7:24 AM EDT The following approved medication requests have been transmitted electronically. Requested Prescriptions Pending Prescriptions Disp Refills levothyroxine (LEVOXYL) 125 mcg tablet 90 tablet 3 Sig: Take 1 tablet by mouth once daily. Take on empty stomach. For thyroid. Mulugeta Jennings APRN.CNP * Telephone Encounter - Christa Zuluaga LPN - 09/05/2024 6:49 AM EDT Prescription Refill Information The patient has been identified by name and date of : Yes Caregiver verified no other encounters exist for this prescription request: Yes Caregiver confirmed with patient/requestor that no other refills are due, in the near future, with this provider at this time: Yes The last office visit in the department: 08/22/2024 Does the patient have a future office visit with this provider/department: Yes Requested Prescriptions Pending Prescriptions Disp Refills levothyroxine (LEVOXYL) 125 mcg tablet 90 tablet 3 Sig: Take 1 tablet by mouth once daily. Take on empty stomach. For thyroid. Christa Zuluaga LPN September 05, 2024 6:49 AM documented in this encounterC[facility] Telephone encounter Note * Telephone Encounter - Christa Zuluaga LPN - 09/05/2024 6:49 AM EDT Prescription Refill Information The patient has been identified by name and date of : Yes Caregiver verified no other encounters exist for this prescription request: Yes Caregiver confirmed with patient/requestor that no other refills are due, in the near future, with this provider at this time: Yes The last office visit in the department: 08/22/2024 Does the patient have a future office visit with this provider/department: Yes Requested Prescriptions Pending Prescriptions Disp Refills levothyroxine (LEVOXYL) 125 mcg tablet 90 tablet 3 Sig: Take 1 tablet by mouth once daily. Take on empty stomach. For thyroid. Christa Zuluaga LPN September 05, 2024 6:49 AM [facility]06-[facility]25 NoteHNO ID: [id number] Author: DEACON VALDEZ APRN.DIGITAL DATA ANALYST Service: ? Author Type: Nurse Practitioner Type: Progress Notes Filed: 09/04/2024 14:51 Note Text: This note was created using KeepRecipesriter. Subjective Mari Lopez is a 84 year old female. HPI Patient presents today complaining of some shortness of breath and wheezing which has been ongoing for the last 2 weeks. She denies any fevers. She notes that she was recently discharged from [facility] after having been hospitalized for sepsis. She denies any chest pain or recent weight gains. Review of Systems As above Objective BP 128/76 Pulse 74 Temp 36.9 ?C (98.5 ?F) (Tympanic) Resp 18 Wt 105.7 kg (233 lb) SpO2 95% BMI 42.62 kg/m? Physical Exam Vitals and nursing note reviewed. Constitutional: General: She is not in acute distress. Appearance: Normal appearance. She is obese. She is not ill-appearing. HENT: Head: Normocephalic. Mouth/Throat: Mouth: Mucous membranes are moist. Eyes: Conjunctiva/sclera: Conjunctivae normal. Cardiovascular: Rate and Rhythm: Normal rate and regular rhythm. Pulmonary: Effort: Pulmonary effort is normal. Breath sounds: Rhonchi and rales present. Musculoskeletal: General: Normal range of motion. Cervical back: Normal range of motion. Skin: General: Skin is warm and dry. Comments: Wound VAC to right leg noted Neurological: General: No focal deficit present. Mental Status: She is alert. Psychiatric: Mood and Affect: Mood normal. Behavior: Behavior normal. Assessment and Plan ASSESSMENT/PLAN: 1. Lower respiratory infection - ICD9: 519.8, ICD10: J22 On initial presentation I did consider sending patient to the emergency department however she easily ambulated with her walker back to the room and was in no respiratory distress. Patient denying any chest pain and noted 2 weeks of ongoing respiratory issues. I did review with patient and family that at this time we did not have x-ray available I did not have the ability to do any lab work. I reviewed with patient and family that all we could do was treat for possible pneumonia and patient could then follow-up closely with PCP. I explained the patient that it would not be unreasonable to go to the emergency department where further workup could be obtained including chest x-ray, lab work, and EKG. After discussion, patient prefers not to go to the emergency department and understands that we do have limited capabilities to treat. Patient was in no acute distress on my evaluation but did have some coarse lung sounds. She was started on doxycycline and given Tessalon Perles. She was given strict precautions that if she worsens in any way she need to go directly to the emergency department for further evaluation to which she was agreeable. - DOXYCYCLINE MONOHYDRATE 100 MG CAPSULE - BENZONATATE 100 MG CAPSULE [facility]acon Valdez APRN.[facility] History of Present illness Narrative* Deacon Valdez APRN.DIGITAL DATA ANALYST - 09/04/2024 2:48 PM EDT This note was created using KeepRecipesriter. Subjective Mari Lopez is a 84 year old female. HPI Patient presents today complaining of some shortness of breath and wheezing which has been ongoing for the last 2 weeks. She denies any fevers. She notes that she was recently discharged from [facility] after having been hospitalized for sepsis. She denies any chest pain or recent weight gains. Review of Systems As above Objective BP 128/76 Pulse 74 Temp 36.9 C (98.5 F) (Tympanic) Resp 18 Wt 105.7 kg (233 lb) SpO2 95% BMI 42.62 kg/m Physical Exam Vitals and nursing note reviewed. Constitutional: General: She is not in acute distress. Appearance: Normal appearance. She is obese. She is not ill-appearing. HENT: Head: Normocephalic. Mouth/Throat: Mouth: Mucous membranes are moist. Eyes: Conjunctiva/sclera: Conjunctivae normal. Cardiovascular: Rate and Rhythm: Normal rate and regular rhythm. Pulmonary: Effort: Pulmonary effort is normal. Breath sounds: Rhonchi and rales present. Musculoskeletal: General: Normal range of motion. Cervical back: Normal range of motion. Skin: General: Skin is warm and dry. Comments: Wound VAC to right leg noted Neurological: General: No focal deficit present. Mental Status: She is alert. Psychiatric: Mood and Affect: Mood normal. Behavior: Behavior normal. Assessment and Plan ASSESSMENT/PLAN: 1. Lower respiratory infection - ICD9: 519.8, ICD10: J22 On initial presentation I did consider sending patient to the emergency department however she easily ambulated with her walker back to the room and was in no respiratory distress. Patient denying any chest pain and noted 2 weeks of ongoing respiratory issues. I did review with patient and family that at this time we did not have x-ray available I did not have the ability to do any lab work. I reviewed with patient and family that all we could do was treat for possible pneumonia and patient could then follow-up closely with PCP. I explained the patient that it would not be unreasonable to go to the emergency department where further workup could be obtained including chest x-ray, lab work, and EKG. After discussion, patient prefers not to go to the emergency department and understands that we do have limited capabilities to treat. Patient was in no acute distress on my evaluation but did have some coarse lung sounds. She was started on doxycycline and given Tessalon Perles. She was given strict precautions that if she worsens in any way she need to go directly to the emergency department for further evaluation to which she was agreeable. - DOXYCYCLINE MONOHYDRATE 100 MG CAPSULE - BENZONATATE 100 MG CAPSULE Deacon Valdez APRN.CJ documented in this encounterC[facility]05-[facility] Telephone encounter Note * Telephone Encounter - Analia Gracia RN - 09/01/2024 6:07 PM EDT Called and left a detailed voicemail notifying Lora from [facility] of providers message. Clinic phone number was left in case she had any questions. Anaila Gracia RN [facility]05-29-2025 Miscellaneous Notes* Telephone Encounter - Analia Gracia RN - 09/01/2024 6:07 PM EDT Called and left a detailed voicemail notifying Lora from [facility] of providers message. Clinic phone number was left in case she had any questions. Analia Gracia, RN * Telephone Encounter - Lizy Capone MD - 08/30/2024 4:55 PM EDT OK to stay on iron as she is taking it. OK for pain med orders Mirena added to Med list. . Lizy Capone MD * Telephone Encounter - Lora Najera RN - 08/30/2024 10:36 AM EDT Lora from [facility] calls and reports that patient started with home health services. Lora makes note of a couple different things: Patient is on iron tablets which is contradicted for someone with peanut allergies. Patient has been taking medication with no issues. Patient had discharged from [place] with oxycodone orders of 5 mg every morning then 5 mg q4h PRN Pain. Lora does not think patient is taking medication regularly but asking if PCP ok with those orders? Patient has mirena IUD. Asking if that can be noted on patient's medication list? Please review and advise, Lora Najera RN documented in this encounterCleveland [facility]05-29-2025 Progress note Author Gonzalo Lomax [facility] Note Date/Time September 01, 2024 3:14p [facility] [address] [place] [address] Progress Note - Wound Care 09/01/24 1512 MR#: [id number] Acct: [id number] Name: MARI LOPEZ Rep #:[id number] : 1940 84 From: Gonzalo Lomax MD PCP: BROOK[place]N Aguillon Status:REG R CR Location: History of Present Illness Date of Service: 09/01/24 History of Wound: Mari Lopez is a delightful 84-year-old female who presents today as a 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 The area filled with blood beneath the skin and the overlying skin slowly demarcated and became necrotic over the past several days. The initial treatment by the emergency department appears to be that they placed compression to prevent the hematoma from expanding with the hope that it would resorb. Today in clinic she denies having any fevers or chills. She reports that she isnot currently on any blood thinner (although she was on Eliquis in the past, andit does set her med list that she is on apixaban 2.5 mg twice daily) or antiplatelet agents at this time. She is not a smoker. Patient became acutely ill in April 2024 earlier this year from the flu and was hospitalized and intubated in the ICU. She has been recovering at a [facility] ever since. She was doing welloverall from a respiratory standpoint, and is attempting to regain her strength and ambulate more. She is ambulatory at baseline. She is not currently on any oxygen. Of note she has a previous history of a DVT PE. X-ray at the time of her injury from the emergency department demonstrated a total knee arthroplasty on the right but no acute osseous abnormalities. Patient is not having any acute bony pain at this time in the area of injury. 15 Aug 2024: Doing well overall and endorses good dressing changes with the twice daily Dakin's soaked Kerlix. No fevers or chills. Subjective Subjective 22 Aug 2024: Doing well overall and endorses good dressing changes at the residential. She is not interested in staying at the residential while the VAC therapy is in place and would like a home wound VAC. He understands the risk benefits and alternatives (all discussed with her today at this appointment) to discharge while she has high- level wound care requirements. Current encounter, 01 Sep 2024: Doing well overall. Endorses excellent VAC changes. Objective Data Objective Data Vital Signs: Vital Signs Temp Pulse Resp BP 96.8 F L 75 18 147/68 H 09/01/24 14:39 09/01/24 14:39 09/01/24 14:39 09/01/24 14:39 Charges/Coding Visit Charges Office Visits / Consults: 41240 OV L3 Est 20min Physical Exam Narrative Right lower extremity examination: Large 7 x 5 cm (and 0.5 cm deep) wound from previous hematoma I&D. No surrounding induration or signs of systemic infection. There are no other fluidcollections. No crepitus. There is granulation over the anterior compartment Compartments of the leg are soft Motor: 5+ dorsiflexion and plantarflexion. Sensory exam: Sensation to light touch intact on the foot and ankle Vascular exam: 2+ dorsalis pedis and posterior tibial pulses Debridement Note Debridement Note No debridement was completed: No debridement was completed today Post-Debridement Measurements and Additional Note: Post-Debridement Measurements/Treatment - Nurse 1 - General Ulcer Assessment Start: 08/15/24 09:19 Freq: Status: Active Protocol: SMITH Activity Type Activity Date Activity User E-sign Co-sign Detail Recorded Client Recorded Date Recorded By Document 08/15/24 09:19 ML [id number] 08/15/24 09:22 ML Document 08/22/24 09:46 DL [id number] 08/22/24 09:56 DL Document 09/01/24 14:39 JF [id number] 09/01/24 14:49 JF 08/15/24 08/22/24 09/01/24 09:19 09:46 14:39 - Today's Visit Information Type of service Follow-up Visit Follow-up Visit Follow-up Visit (Physician/DIGITAL DATA ANALYST (Physician/DIGITAL DATA ANALYST (Physician/DIGITAL DATA ANALYST ) ) ) Arrival Mode Wheelchair Ambulatory, Ambulatory, Walker Walker Transfer Assistance None None Patient Identification Verified (Name & Yes Yes Yes ) Patient Requires Transmission-Based No No No Precautions Vital Signs Temperature (97.8 F-99.1 F) 96.6 F L 98.1 F 96.8 F L Temperature Source Temporal Temporal Temporal Pulse Rate (60-100) 85 60 75 Pulse Location Monitor Monitor Monitor Respiratory Rate (12-18) 14 20 H 18 Respiratory rate source Observation Observation Observation Blood Pressure (90/60-120/80) 124/65 H 154/81 H 147/68 H Blood Pressure Mean (mm Hg) 84 105 94 Source Monitor Monitor Monitor Position Sitting Sitting Blood Pressure Location Right Forearm Right Forearm History Since Last Visit- (Skip if this is Patient's initial visit) Have you changed medications since your No No No last visit? Any new allergies or adverse reactions No No No Had a fall/change in ADL's that may No No No increase risk of falls Signs or symptoms of abuse and/or No No No neglect since last visit Have you been in the hospital since your No No Yes last visit? Has dressing in place as prescribed Yes Yes Yes Has compression in place as prescribed N/A Yes Yes Has offloadiing in place as prescribed N/A Yes N/A Experienced any changes in pain level or No No No management Left Footwear Regular Shoe Right Footwear Regular Shoe Pain Scale: 0-10 Numeric Is Patient Pain Free? Yes Yes Yes WC - Nurse 1 - General Ulcer Measurement Start: 08/15/24 09:19 Freq: Status: Active Protocol: Activity Type Activity Date Activity User E-sign Co-sign Detail Recorded Client Recorded Date Recorded By Document 08/15/24 09:19 ML [id number] 08/15/24 09:22 ML Edit Result 08/15/24 09:19 ML (1) [id number] 08/15/24 09:26 ML Document 08/22/24 09:46 DL [id number] 08/22/24 09:56 DL Document 09/01/24 14:39 JF [id number] 09/01/24 14:49 JF (1) RLE - Slough/Fibrin => Yes - Necrosis Amt => Medium (34-66%) - Necrotic Tissue Type => Eschar - Texture (Laura-wound Skin Appearance) => Assessed - Moisture (Laura-wound Skin Appearance) => Assessed - Temperature (Laura-wound Skin => No Abnormality (Pt Appearance) => Warm) - Tenderness on Palpation (Laura-wound => Yes Skin Appearance) - Ulcer Cleansing => Soap and Water - Foul Odor after Cleansing => No - Anesthetic Used => 5% Lidocaine Gel 08/15/24 08/22/24 09/01/24 09:19 09:46 14:39 Wound Center Nurse 1 RLE -Combined with other wound No -Current Size (cm) - Length 6 4.8 4.8 -Current Size (cm) - Width 8 7.8 7.4 -Current Size (cm) - Depth 0.6 0.3 0.1 -Total Square Cm 48 37.44 35.52 -Photo Taken Yes -Epithelialization Medium 34-66% -Tunneling No -Undermining/Tunneling No -Circular Undermining No -Exudate Amt Medium Medium -Exudate Type Sanguineous Serosanguineous -Wound Margin Distinct, Flat & Intact Outline Attached -Granulation Amt Large (67-100%) Large (67-100%) -Granulation Quality Red Red -Slough/Fibrin Yes Yes -Necrosis Amt Medium (34-66%) None Present (0 Small (1-33%) %) -Necrotic Tissue Type Eschar Adherent Slough -Structure Exposed N/A N/A -Texture (Laura-wound Skin Appearance) Assessed Scarring Assessed, Localized Edema -Moisture (Laura-wound Skin Appearance) Assessed No Abnormality Assessed,Dry/ Scaly -Color (Laura-wound Skin Appearance) No Abnormality Assessed -Temperature (Laura-wound Skin No Abnormality No Abnormality No Abnormality Appearance) (Pt Warm) (Pt Warm) (Pt Warm) -Tenderness on Palpation (Laura-wound Yes No No Skin Appearance) -Ulcer Cleansing Soap and Water Soap and Water Soap and Water -Foul Odor after Cleansing No No No -Anesthetic Used 5% Lidocaine 5% Lidocaine 5% Lidocaine Gel Gel Gel Lower Limb Edema Present Yes Right Calf (cm) 46 47.0 Right Ankle (cm) 27.2 26.5 WC - Nurse 2 - General Ulcer CM Notes Start: 08/15/24 09:19 Freq: Status: Active Protocol: Activity Type Activity Date Activity User E-sign Co-sign Detail Recorded Client Recorded Date Recorded By Document 08/15/24 09:26 BMF [id number] 08/15/24 09:35 BMF Document 08/22/24 10:35 BM [id number] 08/22/24 10:48 BMF Edit Result 08/22/24 10:35 BMF (1) [id number] 08/31/24 08:41 BMF Document 09/01/24 14:59 DS [id number] 09/01/24 15:02 DS (1) RLE - Debridement, SubQ, ea addt'l 20sq cm => 1 or part thereof 08/15/24 08/22/24 09/01/24 09:26 10:35 14:59 Wound Center Nurse 2 RLE -Time 09:27 10:37 14:59 -Correct Patient Yes Yes Yes -Correct Side, Site, Position Yes Yes Yes -Correct Procedure Yes Yes -Procedure Performed Yes Yes No -Type of Procedure Debridement Debridement -Clinical Debridement Muscle / Fascia Subcutaneous -Tissue Removed Muscle,Fascia Subcutaneous -Post Debridement (cm) - Length 8 5 5.0 -Post Debridement (cm) - Width 5 7.5 7.0 -Post Debridement (cm) - Depth 0.5 0.2 -Total Square (Post) (cm) 40 37.5 35.00 -Area of Debridement (cm) - Length 8 5 5.0 -Area of Debridement (cm) - Width 5 7.5 7.0 -Total Square (Area) (cm) 40 37.5 35.00 -Tunneling No No No -Undermining/Tunneling No No No -Circular Undermining No No No -Wound/Ulcer Outcome Not Healed Not Healed Not Healed -Ulcer Cleansing Rinsed/ Rinsed/ Irrigated with Irrigated with Saline Saline -Foul Odor after Cleansing No No -Bioengineered Tissue No No -Injectable Lidocaine w/ Epi (%) 1 -Injectable Lidocaine w/ Epi (mls) 10 -Bleeding Controlled with Pressure Pressure -Treatment Response Procedure Procedure Tolerated Well Tolerated Well -Debridement - Subq, 1st 20sq cm Yes -Debridement, SubQ, ea addt'l 20sq cm 1 or part thereof -Debridement - Muscle / Fascia, 1st Yes 20sq cm -Debridement, Muscle/Fascia, ea addt'l 1 20sq cm or part thereof Pain Scale: 0-10 Numeric Is Patient Pain Free? Yes Yes Yes WC - Nurse 3 - General Ulcer D/C NN Start: 08/15/24 09:19 Freq: Status: Active Protocol: Activity Type Activity Date Activity User E-sign Co-sign Detail Recorded Client Recorded Date Recorded By Document 08/15/24 09:53 DL [id number] 08/15/24 09:54 DL Document 08/22/24 11:11 JF [id number] 08/22/24 11:11 JF Edit Result 08/22/24 11:11 JF (1) [id number] 08/22/24 11:23 JF (1) RLE - Setting (mmHg) => 125 - Negative Pressure is => Continuous 08/15/24 08/22/24 09:53 11:11 Wound Care Center Nurse 3 RLE -Ulcer Cleansing Soap and Water Rinsed/ Irrigated with Saline -Foul Odor after Cleansing No No -NPWT Application Charge NPWT & Debridement (nc ) -Setting (mmHg) 125 -Negative Pressure is Continuous -Other Dressing DAKINS -Primary Dressing Covered/Secured with Dry Gauze & Roll Gauze, Secured with Tape -Other Covering ABD/JEANCARLOS RLE -Compression Wrap Jeancarlos Wrap Treatment Response Procedure Tolerated Well Pain Scale: 0-10 Numeric Is Patient Pain Free? Yes Yes WC - Visit Discharge Discharge Condition Stable Stable Ambulatory Status Ambulatory Walker Transportation Private Auto Private Auto Accompanied by friend Medication Reconcilliation completed & Yes provided to patient/care provider Clinical Summary of Care Provided Yes Facility Type Mapper Care Facility Orders Sent Yes Assessment/Plan Assessment/Plan (1) Wound of right lower extremity: CODE(S): S81.801A - Unspecified open wound, right lower leg, initial encounter PLAN: Continues to make significant improvement, especially with the wound VAC. There is now granulation tissue over the muscle. Ready for skin grafting. I reiterated the below risks with her today at our appointment and she would like to proceed with skin grafting: I talked the patient about the risks, benefits, and alternatives to skin grafting. We talked about the risk of skin graft failure, and need for debridement and continued wound care. She would like to proceed with skin graftversus doing continue dressing changes and wound care modalities (discussed TheraSkin and other dermal substitutes and continued wound VAC therapy, and she would like to do skin graft as this would get her potentially healed quicker). Italked to her also about the general risks of surgery, including bleeding, infection, damage to surrounding structures, poor scaring, surgical site dehiscence and wound formation, need for wound care, need for repeat operations,failure to obtain the desired result, DVT/PE, and the risks of anesthesia including , including stroke (from low blood pressure/ischemia or clot). The benefits and alternatives of this surgery were also discussed. All of their questions were answered, and they agreed to proceed with surgery. Plan for wound VAC 3 times per week VAC changes, and okay for home wound VAC. VAC should be changed 3 times per week (if discharged from residential will need home health 3 times per week for 3 times per week VAC changes) until there is a skin graft, at which time the skin graft VAC will remain for 1 week (will not be changed after the skin graft). Patient will continue to be seen weekly at the wound care center. Discussed signs and symptoms of infection and strict return precautions. Patient happy with the plan PLAN: Plan CPT codes for insurance prior authorization are as follows: [id number], [id number] 09/01/24 1514 <Electronically signed by Gonzalo Lomax MD> Cosigner Signature (if applicable): CC: ~ Signed [facility] Work Phone: [phone] Telephone encounter Note* Telephone Encounter - Lizy Capone MD - 08/30/2024 4:55 PM EDT [place] to stay on iron as she is taking it. [place] for pain med orders Mirena added to Med list. . Lizy Capone MD [facility]05-27-2025 Telephone encounter Note* Telephone Encounter - Lora Najera RN - 08/30/2024 10:36 AM EDT Lora from [facility] calls and reports that patient started with home health services. Lora makes note of a couple different things: Patient is on iron tablets which is contradicted for someone with peanut allergies. Patient has been taking medication with no issues. Patient had discharged from [facility] with oxycodone orders of 5 mg every morning then 5 mg q4h PRN Pain. Lora does not think patient is taking medication regularly but asking if PCP ok with those orders? Patient has mirena IUD. Asking if that can be noted on patient's medication list? Please review and advise, Lora Najera RN [facility]05-19-2025 Progress note Author Gonzalo [facility] Note Date/Time August 22, 2024 12:08 pm [facility] [address] [place] [address] Progress Note - Wound Care 08/22/24 1146 MR#: [id number] Acct: [id number] Name: MARI LOPEZ Rep #:[id number] : 1940 84 From: Gonzalo Lomax MD PCP: Miryam Orozco [employer] [facility] Status:REG R CR Location: WC ADDENDUM by Dr. Gonzalo Lomax MD on 08/22/24 at 1208 Addendum Addendum: elle kline CPT: 33068, 07004 Procedures Integumentary 111xxx-113xx: [id number] [place] subq tissue 20 sq cm/< Add On Codes: 57649 [place] subq tissue add-on 08/22/24 1208<Electronically signed by Gonzalo Lomax MD> Cosigner Signature (if applicable): cc: ~* Signed ADDENDUM by Dr. 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 The area filled with blood beneath the skin and the overlying skin slowly demarcated and became necrotic over the past several days. The initial treatment by the emergency department appears to be that they placed compression to prevent the hematoma from expanding with the hope that it would resorb. Today in clinic she denies having any fevers or chills. She reports that she isnot currently on any blood thinner (although she was on Eliquis in the past, andit does set her med list that she is on apixaban 2.5 mg twice daily) or antiplatelet agents at this time. She is not a smoker. Patient became acutely ill in April 2024 earlier this year from the flu and was hospitalized and intubated in the ICU. She has been recovering at a [facility] ever since. She was doing welloverall from a respiratory standpoint, and is attempting to regain her strength and ambulate more. She is ambulatory at baseline. She is not currently on any oxygen. Of note she has a previous history of a DVT PE. X-ray at the time of her injury from the emergency department demonstrated a total knee arthroplasty on the right but no acute osseous abnormalities. Patient is not having any acute bony pain at this time in the area of injury. 15 Aug 2024: Doing well overall and endorses good dressing changes with the twice daily Dakin's soaked Kerlix. No fevers or chills. Subjective Subjective Current encounter, 22 Aug 2024: Doing well overall and endorses good dressing changes at the residential. She is not interested in staying at the residential while the VAC therapy is in place and would like a home wound VAC. He understands the risk benefits and alternatives (all discussed with her today at this appointment) to discharge while she has high- level wound care requirements. Objective Data Objective Data Vital Signs: Vital Signs Temp Pulse Resp BP 98.1 F 60 20 H 154/81 H 08/22/24 09:46 08/22/24 09:46 08/22/24 09:46 08/22/24 09:46 Charges/Coding Procedures Integumentary 111xxx-113xx: [id number] [place] subq tissue 20 sq cm/< Physical Exam Narrative Right lower extremity examination: Large 7.5 x 5 cm (and 0.5 cm deep) wound from previous hematoma I&D. No surrounding induration or signs of systemic infection. There are no other fluidcollections. No crepitus. There is granulation over the anterior compartment Compartments of the leg are soft Motor: 5+ dorsiflexion and plantarflexion. Sensory exam: Sensation to light touch intact on the foot and ankle Vascular exam: 2+ dorsalis pedis and posterior tibial pulses Debridement Note Debridement Note Wound debrided: Right leg wound Laterality: Right Wound Grade/Stage: Stage III Type of Debridement: Excisional debridement Depth: in the subcutaneous layer Percentage of wound debrided: 100 Instrument Used: 7mm curette Tissue Removed: Necrotic fibrinous exudate and debris at the level of the fat Severity: Fat Layer Exposed Amount of bleeding with debridement: Moderate Bleeding Controlled with: Compression and gauze Patient tolerated procedure: Patient tolerated procedure well Post-Debridement Measurements and Additional Note: Post-Debridement Measurements/Treatment MICHELL - Nurse 1 - General Ulcer Assessment Start: 08/15/24 09:19 Freq: Status: Active Protocol: SMITH Activity Type Activity Date Activity User E-sign Co-sign Detail Recorded Client Recorded Date Recorded By Document 08/15/24 09:19 ML [id number] 08/15/24 09:22 ML Document 08/22/24 09:46 DL [id number] 08/22/24 09:56 DL 08/15/24 08/22/24 09:19 09:46 WC - Today's Visit Information Type of service Follow-up Visit Follow-up Visit (Physician/DIGITAL DATA ANALYST (Physician/DIGITAL DATA ANALYST ) ) Arrival Mode Wheelchair Ambulatory, Walker Transfer Assistance None None Patient Identification Verified (Name & Yes Yes ) Patient Requires Transmission-Based No No Precautions Vital Signs Temperature (97.8 F-99.1 F) 96.6 F L 98.1 F Temperature Source Temporal Temporal Pulse Rate (60-100) 85 60 Pulse Location Monitor Monitor Respiratory Rate (12-18) 14 20 H Respiratory rate source Observation Observation Blood Pressure (90/60-120/80) 124/65 H 154/81 H Blood Pressure Mean (mm Hg) 84 105 Source Monitor Monitor Position Sitting Blood Pressure Location Right Forearm History Since Last Visit- (Skip if this is Patient's initial visit) Have you changed medications since your No No last visit? Any new allergies or adverse reactions No No Had a fall/change in ADL's that may No No increase risk of falls Signs or symptoms of abuse and/or No No neglect since last visit Have you been in the hospital since your No No last visit? Has dressing in place as prescribed Yes Yes Has compression in place as prescribed N/A Yes Has offloadiing in place as prescribed N/A Yes Experienced any changes in pain level or No No management Pain Scale: 0-10 Numeric Is Patient Pain Free? Yes Yes - Nurse 1 - General Ulcer Measurement Start: 08/15/24 09:19 Freq: Status: Active Protocol: Activity Type Activity Date Activity User E-sign Co-sign Detail Recorded Client Recorded Date Recorded By Document 08/15/24 09:19 ML [id number] 08/15/24 09:22 ML Edit Result 08/15/24 09:19 ML (1) [id number] 08/15/24 09:26 ML Document 08/22/24 09:46 DL [id number] 08/22/24 09:56 DL (1) RLE - Slough/Fibrin => Yes - Necrosis Amt => Medium (34-66%) - Necrotic Tissue Type => Eschar - Texture (Laura-wound Skin Appearance) => Assessed - Moisture (Laura-wound Skin Appearance) => Assessed - Temperature (Laura-wound Skin => No Abnormality (Pt Appearance) => Warm) - Tenderness on Palpation (Laura-wound => Yes Skin Appearance) - Ulcer Cleansing => Soap and Water - Foul Odor after Cleansing => No - Anesthetic Used => 5% Lidocaine Gel 08/15/24 08/22/24 09:19 09:46 Wound Center Nurse 1 RLE -Current Size (cm) - Length 6 4.8 -Current Size (cm) - Width 8 7.8 -Current Size (cm) - Depth 0.6 0.3 -Total Square Cm 48 37.44 -Exudate Amt Medium -Exudate Type Sanguineous -Wound Margin Distinct, Outline Attached -Granulation Amt Large (67-100%) -Granulation Quality Red -Slough/Fibrin Yes -Necrosis Amt Medium (34-66%) None Present (0 %) -Necrotic Tissue Type Eschar -Structure Exposed N/A -Texture (Laura-wound Skin Appearance) Assessed Scarring -Moisture (Laura-wound Skin Appearance) Assessed No Abnormality -Color (Laura-wound Skin Appearance) No Abnormality -Temperature (Laura-wound Skin No Abnormality No Abnormality Appearance) (Pt Warm) (Pt Warm) -Tenderness on Palpation (Laura-wound Yes No Skin Appearance) -Ulcer Cleansing Soap and Water Soap and Water -Foul Odor after Cleansing No No -Anesthetic Used 5% Lidocaine 5% Lidocaine Gel Gel Right Calf (cm) 46 Right Ankle (cm) 27.2 WC - Nurse 2 - General Ulcer CM Notes Start: 08/15/24 09:19 Freq: Status: Active Protocol: Activity Type Activity Date Activity User E-sign Co-sign Detail Recorded Client Recorded Date Recorded By Document 08/15/24 09:26 [facility] [id number] 08/15/24 09:35 [facility] Document 08/22/24 10:35 [facility] [id number] 08/22/24 10:48 [facility] 08/15/24 08/22/24 09:26 10:35 Wound Center Nurse 2 RLE -Time 09:27 10:37 -Correct Patient Yes Yes -Correct Side, Site, Position Yes Yes -Correct Procedure Yes Yes -Procedure Performed Yes Yes -Type of Procedure Debridement Debridement -Clinical Debridement Muscle / Fascia Subcutaneous -Tissue Removed Muscle,Fascia Subcutaneous -Post Debridement (cm) - Length 8 5 -Post Debridement (cm) - Width 5 7.5 -Post Debridement (cm) - Depth 0.5 -Total Square (Post) (cm) 40 37.5 -Area of Debridement (cm) - Length 8 5 -Area of Debridement (cm) - Width 5 7.5 -Total Square (Area) (cm) 40 37.5 -Tunneling No No -Undermining/Tunneling No No -Circular Undermining No No -Wound/Ulcer Outcome Not Healed Not Healed -Ulcer Cleansing Rinsed/ Rinsed/ Irrigated with Irrigated with Saline Saline -Foul Odor after Cleansing No No -Bioengineered Tissue No No -Injectable Lidocaine w/ Epi (%) 1 -Injectable Lidocaine w/ Epi (mls) 10 -Bleeding Controlled with Pressure Pressure -Treatment Response Procedure Procedure Tolerated Well Tolerated Well -Debridement - Subq, 1st 20sq cm Yes -Debridement - Muscle / Fascia, 1st Yes 20sq cm -Debridement, Muscle/Fascia, ea addt'l 1 20sq cm or part thereof Pain Scale: 0-10 Numeric Is Patient Pain Free? Yes Yes WC - Nurse 3 - General Ulcer D/C NN Start: 08/15/24 09:19 Freq: Status: Active Protocol: Activity Type Activity Date Activity User E-sign Co-sign Detail Recorded Client Recorded Date Recorded By Document 08/15/24 09:53 DL [id number] 08/15/24 09:54 DL Document 08/22/24 11:11 JF [id number] 08/22/24 11:11 JF Edit Result 08/22/24 11:11 JF (1) [id number] 08/22/24 11:23 JF (1) RLE - Setting (mmHg) => 125 - Negative Pressure is => Continuous 08/15/24 08/22/24 09:53 11:11 Wound Care Center Nurse 3 RLE -Ulcer Cleansing Soap and Water Rinsed/ Irrigated with Saline -Foul Odor after Cleansing No No -NPWT Application Charge NPWT & Debridement (nc ) -Setting (mmHg) 125 -Negative Pressure is Continuous -Other Dressing DAKINS -Primary Dressing Covered/Secured with Dry Gauze & Roll Gauze, Secured with Tape -Other Covering ABD/JAENCARLOS RLE -Compression Wrap Jeancarlos Wrap Treatment Response Procedure Tolerated Well Pain Scale: 0-10 Numeric Is Patient Pain Free? Yes Yes WC - Visit Discharge Discharge Condition Stable Stable Ambulatory Status Ambulatory Walker Transportation Private Auto Private Auto Accompanied by friend Medication Reconcilliation completed & Yes provided to patient/care provider Clinical Summary of Care Provided Yes Facility Type Mapper Care Facility Orders Sent Yes Assessment/Plan Assessment/Plan (1) Wound of right lower extremity: CODE(S): S81.801A - Unspecified open wound, right lower leg, initial encounter PLAN: Continues to make significant improvement, especially with the wound VAC. There is now granulation tissue over the muscle. Ready for skin grafting. I talked the patient about the risks, benefits, and alternatives to skin grafting. We talked about the risk of skin graft failure, and need for debridement and continued wound care. She would like to proceed with skin graftversus doing continue dressing changes and wound care modalities (discussed TheraSkin and other dermal substitutes and continued wound VAC therapy, and she would like to do skin graft as this would get her potentially healed quicker). Italked to her also about the general risks of surgery, including bleeding, infection, damage to surrounding structures, poor scaring, surgical site dehiscence and wound formation, need for wound care, need for repeat operations,failure to obtain the desired result, DVT/PE, and the risks of anesthesia including , including stroke (from low blood pressure/ischemia or clot). The benefits and alternatives of this surgery were also discussed. All of their questions were answered, and they agreed to proceed with surgery. Plan for wound VAC 3 times per week VAC changes, and okay for home wound VAC. VAC should be changed 3 times per week (if discharged from residential will need home health 3 times per week for 3 times per week VAC changes) until there is a skin graft, at which time the skin graft VAC will remain for 1 week (will not be changed after the skin graft). Patient will continue to be seen weekly at the wound care center. Discussed signs and symptoms of infection and strict return precautions. Patient happy with the plan PLAN: Plan CPT codes for insurance prior authorization are as follows: [id number], [id number] 08/22/24 1158 <Electronically signed by Gonzalo Lomax MD> Cosigner Signature (if applicable): CC: ~ Signed [facility] Work Phone: [phone] 106-268705-19-2025 History of Present illness Narrative* Lizy Capone MD - 08/22/2024 1:20 PM EDT Chief Complaint Patient presents with: F/U 6 Month: Hospital f/u HPI Mari Lopez is a 84 year old female who presents here today for 6 mo f/u. Pt here today for her routine follow up. Was last seen by Miryam Orozco CNP on 03/16/24 for a Hospital f/u. Since that time pt was re-admitted back in April into [facility] ICU for sepsis and kidney failure. Pt was intubated while admitted. She was then life flighted to [facility] ICU to see Neurology on 05/04/24 and discharged on 05/18/24 to a Rehab Facility, staying until 06/10/24. Pt was then d/c to [facility]hab on 06/10/24 and has not yet been d/c from facility. Hoping to get d/c this week. Pt here today and wants to have lab work. Has cancelled appt's with all her Specialists. Uro - Believe that pt had UTI that turned septic causing her seizures and prolonged stay in the Hospital. Pt notes that she had a lot of burning and pain in her lower back. Would like to have recheckdone. Neuro - Hx of seizure x 2 during admission at [facility]. Pt notes she had 3 seizures while her flight to [facility]. Is scheduled with [facility] in September. Pt reports today that she is supposed to be onmedication for 6 months. Nephro - Follows with Dr. Casper. Hx of CKD. When in the hospital pt had kidney failure. Did not require dialysis. Cardio - Follows with [facility], Dr. Jackson. Hx of heart failure, and PE. Pt takes Eliquis5 mg bid, ASA 81 mg once daily, Zestoretic 10-12.5 mg once daily, Lasix 40 mg once daily and ToprolXL 50 mg once daily. Pulm - Hx of pulmonary issues. Schedule with [facility], did see [facility]. Anemia - Hx of transfusion due to anemia. Has been having checks during stay at SNF. Insomnia - Previously on Ambien, currently taking Remeron 15 mg, 0.5 tab at bedtime. Pain - Has been treated with Oxycodone 5 mg 1 tab po QID due to chronic back pain and currently treatment of her right lower leg. Pt reports she had intensive PT due to being on her back for a prolonged period of time. Pt reports an incident that occurred while at [facility], where she was trying to get into her car, Therapist did not lock her wheelchair. She hit her right lower leg on the running board of her car causing a hematoma. Following with Dr. Lomax, has had to have area cleaned out a couple of times. Wound Center put in an order for [facility] to change dressing 3x per week. Currently wearing a wound vac. 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 Past medical history, appointments, medications, allergies reviewed. Previous Medical History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 History of bilateral knee replacement History of herniorrhaphy Status post debridement History of open reduction and internal fixation (ORIF) procedure H/O hemorrhoidectomy History of gastric bypass H/O shoulder replacement History of left heart catheterization (08/01/22) History of hysteroscopy Social History household members: other details: She has a roomate housing: house number of children: 1 current occupational status: retired pets and animals: Yes pets and animals: dog(s) Smoking Status: Never smoker alcohol intake: never substance use type: does not use caffeine: Yes Type: coffee Number of servings: 3 ROS ROS ED Constitutional Constitutional ED: Denies chills, fever(s) or sweats ENT ENT ED: Denies sore throat Cardiovascular Cardiovascular: Denies chest pain, leg edema, palpitations or racing heartbeat Respiratory/Chest Respiratory/Chest: Denies cough, dyspnea or dyspnea on exertion Gastrointestinal Gastrointestinal: Denies abdominal pain, diarrhea, nausea or vomiting Genitourinary Genitourinary ED: Denies dysuria, hematuria or urinary frequency Musculoskeletal Musculoskeletal: Reports extremity pain; Denies back pain or neck pain Integumentary Reports wounds; Denies rash Neurologic Neurologic: Denies headache(s), paresthesias or weakness EXAM Physical Exam Const Vital Signs: 07/29/24 14:53 07/29/24 15:05 Temperature 98.1 F Temperature Source Oral Pulse Rate 70 Respiratory Rate 18 Blood Pressure 161/147 H 185/82 H Blood Pressure Mean 151 116 Pulse Ox 98 Oxygen Delivery Method Room Air Positive well nourished and well developed General Appearance ED: well developed and NAD HEENT Reports moist mucous membranes normocephalic and atraumatic Eyes General Eye ED: Yes normal appearance of both eyes Neck full ROM Chest Wall Chest: Negative for tenderness Resp normal respiratory effort and normal air movement Effort and Inspection: symmetric chest movement; Negative for respiratory distress Cardio regular rate, regular rhythm and no murmurs Peripheral Pulses: pulses 2+ throughout GI normal to inspection, nondistended, normoactive bowel sounds and non-tender Palpation: Negative for guarding or rebound tenderness present Extremity Extremity Narrative: Right lower leg palm size hematoma skin is intact no deformities tender palpation. Mild erythema around the wound. General Extremety ED: Yes tenderness; Negative for edema General Extremity: Negative for edema Neuro oriented x3 and no sensory deficits noted Sensorium / Orientation: awake and alert Skin Skin Narrative: See above MDM MDM MDM Narrative Medical decision making narrative: Interventions / MDM: Differential diagnosis: Right lower leg hematoma, chronic anticoagulation Diagnosis considered but do not suspect: Fracture however x-ray negative My EKG interpretation: N/A Imaging independently reviewed and interpreted by myself: Right tib-fib 2 views:Soft tissue hematoma noted. No fracture. Hardware intact. Also read by radiology. External documents reviewed: N/A Test considered but not ordered:N/A ED course: Patient hematoma to the leg on Eliquis skin is intact. No deformity to the leg. Reports increasing burning, ice was placed. Oxycodone ordered. X-ray tib- fib for further evaluation. X-ray negative. I placed a Xeroform dressing over the hematoma along with gauzeand Jeancarlos wrap. She will continue ice. She has oxycodone prescribed at facility. She not diabetic however given follow-up with wound care due to chronic anticoagulation. There was erythema around the swelling however this currently is more inflammatory response. Discussed monitoring for fevers. All questions were answered. Re-evaluation: stable Disposition discussed with patient/family/significant other: Patient Case discussed with consulting clinician: N/A This note was generated with [employer] Guardation software. It may contain incorrectwords, spelling, and punctuation that were not noted in checking the note beforesigning. Radiography Diagnostic Testing: Clinical Impression(s) from Imaging Studies Tibia/Fibula X-Ray 07/29/24 15:09 IMPRESSION: Right total knee arthroplasty. No acute osseous abnormalities. Soft tissue swelling. Reading Location: [facility] Discharge Plan Triage Chief Complaint: Wound ED Provider: Jean Paul Ha Dx/Rx/DC Orders Clinical Impression: Hematoma of right lower extremity, Chronic anticoagulation Instructions: ED Hematoma Prescriptions: No Action cholecalciferol (vitamin D3) 25 mcg (1,000 unit) capsule 25 mcg PO DAILY Mirena 20 mcg/24 hours (7 yrs) 52 mg intrauterine device 1 mcg intrauterine ONCE nitroglycerin 0.4 mg tablet, sublingual 0.4 mg sublingual Q5M PRN (Reason: chest pain) Qty: 30 1RF Rx Instructions: do not exceed 3 doses per episode fluorometholone 0.1 % drops,suspension 1 drp ophthalmic (eye) BID polyethylene glycol 3350 17 gram Powder In Packet 17 g PO DAILY Qty: 30 0RF atorvastatin 40 mg tablet 40 mg PO QHS ferrous sulfate 324 mg (65 mg iron) tablet,delayed release (DR/EC) 324 mg PO DAILY levothyroxine 125 mcg tablet 125 mcg PO DAILY Patient Comments: TAKE 1 TABLET BY MOUTH ONCE DAILY. TAKE ON EMPTY STOMACH. FOR THYROID. furosemide 40 mg Tablet 40 mg PO Q48H Qty: 1 0RF acetaminophen 325 mg Tablet 650 mg PO TID Qty: 1 0RF carvedilol 3.125 mg Tablet 3.125 mg PO BIDCM Qty: 1 0RF bisacodyl 10 mg Suppository 10 mg MT X1 PRN (Reason: Constipation) Qty: 1 0RF calcium acetate(phosphat bind) 667 mg Capsule 667 mg PO TIDCM Qty: 1 0RF magnesium hydroxide 400 mg/5 mL Suspension 30 ml PO X1 PRN (Reason: Constipation) Qty: 30 0RF pantoprazole 40 mg Tablet,Delayed Release (Dr/Ec) 40 mg PO DAILY Qty: 1 0RF mirtazapine 15 mg Tablet 7.5 mg PO 2000 Qty: 1 0RF sennosides-docusate sodium [Stimulant Laxative Plus] 8.6-50 mg Tablet 2 tab PO BID Qty: 1 0RF Eliquis 2.5 mg tablet 2.5 mg PO BID Qty: 1 0RF zolpidem 5 mg tablet 5 mg PO QHS Qty: 20 0RF lacosamide 100 mg tablet 100 mg PO BID 20 Days Qty: 40 0RF oxycodone 5 mg tablet 5 mg PO Q8H PRN (Reason: pain) 30 Days Qty: 30 0RF Primary Care Provider: Miryam Orozco Referrals: Miryam Orozco NP-C [Primary Care Provider] - [facility] [Non-Staff] - 1 Week Activity Restrictions/Additional Instructions: X-ray right leg negative. Continue ice to help with burning. Jeancarlos wrap to help with compression. You have medication of oxycodone use at facility. Daily wound care. Follow-up with wound care clinic to make sure appropriate healing. Print Language: Swedish Disposition Disposition: Home, Self Care What to do if you have Problems For any increased pain, shortness of breath, bleeding, nausea or vomiting, chestpain, or any unexpected problems, contact your Primary Care Provider. Call [facility] ([phone]) or report to the closest Emergency Room. Call 911 if necessary. 07/29/24 1542 <Electronically signed by Jean Paul Vieyra> Cosigner Signature (if applicable): CC: BROOK[place]N Orozco ~ Signed [facility] Work Phone: [phone] Radiology Diagnostic study [facility] [facility]25 Telephone encounter Note* Telephone Encounter - Mulugeta Jennings APRN.CNP - 07/04/2024 11:01 AM EDT Approved. [facility] website checked and validated. All prescriptions have been APPROPRIATELY filled. No suspiciousactivity was identified. 07/04/2024 by Mulugeta Jennings APRN.CNP The following approved medication requests have been transmitted electronically. Requested Prescriptions Signed Prescriptions Disp Refills zolpidem (AMBIEN) 10 mg 30 tablet 2 Sig: Take 1 tablet by mouth at bedtime as needed for up to 90 days. Authorizing Provider: MULUGETA JENNINGS APRN.CNP [facility]03-31-2025 Miscellaneous Notes* Telephone Encounter - Mulugeta Jennings APRN.CNP - 07/04/2024 11:01 AM EDT Approved. PDMP website checked and validated. All prescriptions have been APPROPRIATELY filled. No suspiciousactivity was identified. 07/04/2024 by Mulugeta Jennings APRN.CNP The following approved medication requests have been transmitted electronically. Requested Prescriptions Signed Prescriptions Disp Refills zolpidem (AMBIEN) 10 mg 30 tablet 2 Sig: Take 1 tablet by mouth at bedtime as needed for up to 90 days. Authorizing Provider: MULUGETA JENNINGS APRN.CNP * Telephone Encounter - Isabell Ashby - 07/01/2024 4:40 PM EDT Prescription Refill Information The patient has been identified by name and date of : Yes Caregiver verified no other encounters exist for this prescription request: Yes Caregiver confirmed with patient/requestor that no other refills are due, in the near future, with this provider at this time: Yes The last office visit in the department: 03/16/2024 Does the patient have a future office visit with this provider/department: Yes Requested Prescriptions Pending Prescriptions Disp Refills zolpidem (AMBIEN) 10 mg 30 tablet 2 Sig: Take 1 tablet by mouth at bedtime as needed for up to 90 days. Isabell Dove July 01, 2024 4:40 PM documented in [facility] Telephone encounter Note * Telephone Encounter - Isabell Ashby - 07/01/2024 4:40 PM EDT Prescription Refill Information The patient has been identified by name and date of : Yes Caregiver verified no other encounters exist for this prescription request: Yes Caregiver confirmed with patient/requestor that no other refills are due, in the near future, with this provider at this time: Yes The last office visit in the department: 03/16/2024 Does the patient have a future office visit with this provider/department: Yes Requested Prescriptions Pending Prescriptions Disp Refills zolpidem (AMBIEN) 10 mg 30 tablet 2 Sig: Take 1 tablet by mouth at bedtime as needed for up to 90 days. Isabell Dove July 01, 2024 4:40 PM [facility]03-07-2025 [facility]02-13-2025 [facility]02-12-[facility]25 Evaluation note* Diagnosis Onset Date Resolution Status Admit Date Chronic renal failure (CRF), stage 4 (severe) acute May 18, 2024 7:11pm Debility acute May 18, 2024 7:11pm Dysphagia acute May 18, 2024 7:11pm Generalized weakness acute 2024 7:11pm Heme + stool acute May 7:11pm Hyperphosphatemia acute r 2024 7:11pm Left wrist pain acute May 18, 2024 7:11pm Acute on chronic anemia chronic F ebruary 2024 7:11pm Seizure disorder chronic May 18, 2024 7:11pm Acute hyperkalemia resolved 2024 7:11pm Acute on chronic back pain resolved May 18, 2024 7:11pm Acute renal failure superimp osed on stage 3b chronic kidney disease resolved May 18, 025 7:11pm Acute respiratory failure wi th hypoxemia resolved May 18, 025 7:11pm Bradycardia resolved May 7:11pm Encephalopathy resolved May 072024 7:11pm Fecal incontinence resolved 2024 7:11pm Metabolic acidosis resolved 2024 7:11pm Pyelonephritis due to Escherichia coli resolved May 18, 2024 7:11pm Septic shock resolved May 7:11pm Status epilepticus resolved 2024 7:11pm (HFpEF) heart failure with preserved ejection fraction inactive 2024 7:11pm Osteopenia inactive May 18, 2024 7:11pm Spinal osteophytosis inactive 2024 7:11pm Urinary incontinence inactive 2024 7:11pm Chronic kidney disease deleted 2024 7:11pm Hematoma of right lower leg acute August 12, 2024 1:02pm Wound of right lower extremity acute August 12, 2024 1:02pm Wound of right lower extremity acute September 01, 2024 2:45pm [facility] Work Phone: 1(699) 824-959902-12-2025 Evaluation note* Diagnosis Onset Date Resolution Status Admit Date Chronic renal failure (CRF), stage 4 (severe) acute May 18, 2024 7:11pm Debility acute May 18, 2024 7:11pm Dysphagia acute May 18, 2024 7:11pm Generalized weakness acute 2024 7:11pm Heme + stool acute May 7:11pm Hyperphosphatemia acute 2024 7:11pm Left wrist pain acute May 18, 2024 7:11pm Acute on chronic anemia chronic F ebru2024 7:11pm Seizure disorder chronic May 18, 2024 7:11pm Acute hyperkalemia resolved 2024 7:11pm Acute on chronic back pain resolved May 18, 2024 7:11pm Acute renal failure superimp osed on stage 3b chronic kidney disease resolved May 18, 2 025 7:11pm Acute respiratory failure wi th hypoxemia resolved May 18, 2 025 7:11pm Bradycardia resolved May 7:11pm Encephalopathy resolved May 072024 7:11pm Fecal incontinence resolved 2024 7:11pm Metabolic acidosis resolved 2024 7:11pm Pyelonephritis due to Escherichia coli resolved May 18, 2024 7:11pm Septic shock resolved May 7:11pm Status epilepticus resolved 2024 7:11pm (HFpEF) heart failure with preserved ejection fraction inactive 2024 7:11pm Osteopenia inactive May 18, 2024 7:11pm Spinal osteophytosis inactive 2024 7:11pm Urinary incontinence inactive 2024 7:11pm Chronic kidney disease deleted 2024 7:11pm Hematoma of right lower leg acute August 12, 2024 1:02pm Wound of right lower extremity acute August 12, 2024 1:02pm Wound of right lower extremity acute September 01, 2024 2:45pm Seizure disorder chronic September 8:38am [facility] Work Phone: 1(493) 816-422802-12-2025 Evaluation note* Diagnosis Onset Date Resolution Status Admit Date Chronic renal failure (CRF), stage 4 (severe) acute May 18, 2024 7:11pm Debility acute May 18, 2024 7:11pm Dysphagia acute May 18, 2024 7:11pm Generalized weakness acute 2024 7:11pm Heme + stool acute May 7:11pm Hyperphosphatemia acute 2024 7:11pm Left wrist pain acute May 18, 2024 7:11pm Acute on chronic anemia chronic F ebruary 2024 7:11pm Acute hyperkalemia resolved 2024 7:11pm Acute on chronic back pain resolved May 18, 2024 7:11pm Acute renal failure superimp osed on stage 3b chronic kidney disease resolved May 18, 7:11pm Acute respiratory failure wi th hypoxemia resolved May 18 7:11pm Bradycardia resolved May 7:11pm Encephalopathy resolved May 072024 7:11pm Fecal incontinence resolved 2024 7:11pm Metabolic acidosis resolved 2024 7:11pm Pyelonephritis due to Escherichia coli resolved May 18, 2024 7:11pm Seizure disorder resolved May 18, 2024 7:11pm Septic shock resolved May 7:11pm Status epilepticus resolved 2024 7:11pm (HFpEF) heart failure with preserved ejection fraction inactive 2024 7:11pm Osteopenia inactive May 18, 2024 7:11pm Spinal osteophytosis inactive 2024 7:11pm Urinary incontinence inactive 2024 7:11pm Chronic kidney disease deleted 2024 7:11pm Hematoma of right lower leg acute August 12, 2024 1:02pm Wound of right lower extremity acute August 12, 2024 1:02pm Wound of right lower extremity acute September 01, 2024 2:45pm Seizure disorder resolved September 8:38am Wound of right lower extremity acute September 06, 2024 7:22am [facility] Work Phone: 1(201) 316-162502-12-2025 Evaluation note* Diagnosis Onset Date Resolution Status Admit Date Chronic renal failure (CRF), stage 4 (severe) acute May 18, 2024 7:11pm Debility acute May 18, 2024 7:11pm Dysphagia acute May 18, 2024 7:11pm Generalized weakness acute 2024 7:11pm Heme + stool acute May 7:11pm Hyperphosphatemia acute r 2024 7:11pm Left wrist pain acute May 18, 2024 7:11pm Acute on chronic anemia chronic F ebruary 2024 7:11pm Acute hyperkalemia resolved 2024 7:11pm Acute on chronic back pain resolved May 18, 2024 7:11pm Acute renal failure superimp osed on stage 3b chronic kidney disease resolved May 18, 025 7:11pm Acute respiratory failure wi th hypoxemia resolved May 18, 025 7:11pm Bradycardia resolved May 7:11pm Encephalopathy resolved May 072024 7:11pm Fecal incontinence resolved 2024 7:11pm Metabolic acidosis resolved 2024 7:11pm Pyelonephritis due to Escherichia coli resolved May 18, 2024 7:11pm Seizure disorder resolved May 18, 2024 7:11pm Septic shock resolved May 7:11pm Status epilepticus resolved 2024 7:11pm (HFpEF) heart failure with preserved ejection fraction inactive 2024 7:11pm Osteopenia inactive May 18, 2024 7:11pm Spinal osteophytosis inactive 2024 7:11pm Urinary incontinence inactive 2024 7:11pm Chronic kidney disease deleted Fe bruary 2024 7:11pm Hematoma of right lower leg acute August 12, 2024 1:02pm Wound of right lower extremity acute August 12, 2024 1:02pm Wound of right lower extremity acute September 01, 2024 2:45pm Seizure disorder resolved September 8:38am Wound of right lower extremity acute September 06, 2024 7:22am S/P flap graft acute September 19, 2024 2:00pm [facility] Work Phone: 1(480) 858-331902-12-2025 Evaluation note* Diagnosis Onset Date Resolution Status Admit Date Chronic renal failure (CRF), stage 4 (severe) acute May 18, 2024 7:11pm Debility acute May 18, 2024 7:11pm Dysphagia acute May 18, 2024 7:11pm Generalized weakness acute 2024 7:11pm Heme + stool acute May 7:11pm Hyperphosphatemia acute r y 2024 7:11pm Left wrist pain acute May 18, 2024 7:11pm Acute on chronic anemia chronic F ebruary 2024 7:11pm Acute hyperkalemia resolved 2024 7:11pm Acute on chronic back pain resolved May 18, 2024 7:11pm Acute renal failure superimp osed on stage 3b chronic kidney disease resolved May 18, 025 7:11pm Acute respiratory failure wi th hypoxemia resolved May 18, 025 7:11pm Bradycardia resolved May 7:11pm Encephalopathy resolved May 072024 7:11pm Fecal incontinence resolved 2024 7:11pm Metabolic acidosis resolved 2024 7:11pm Pyelonephritis due to Escherichia coli resolved May 18, 2024 7:11pm Seizure disorder resolved May 18, 2024 7:11pm Septic shock resolved May 7:11pm Status epilepticus resolved 2024 7:11pm (HFpEF) heart failure with preserved ejection fraction inactive 2024 7:11pm Osteopenia inactive May 18, 2024 7:11pm Spinal osteophytosis inactive 2024 7:11pm Urinary incontinence inactive 2024 7:11pm Chronic kidney disease deleted Fe bru2024 7:11pm Hematoma of right lower leg acute August 12, 2024 1:02pm Wound of right lower extremity acute August 12, 2024 1:02pm Wound of right lower extremity acute September 01, 2024 2:45pm Seizure disorder resolved September 8:38am Wound of right lower extremity acute September 06, 2024 7:22am S/P flap graft acute September 19, 2024 2:00pm JOSE (acute kidney injury) acute September 28, 2024 8:00pm [facility] Work Phone: 1(950) 566-394702-12-2025 Miscellaneous Notes* Nursing Notes - Steffany Mishra RN - 05/18/2024 4:34 PM EST AVS, FRANCISCO and discharge summary got faxed to [facility]. Report called and all questions answered. PIVs removed prior to discharge. Patient left the unit safely with transportation team. * Plan of Care - Kin Goodwin, PT - 05/18/2024 11:50 AM EST Problem: PT - General Goals Goal: Supine <-> Sit Transfers - Patient will perform supine to/from sit transfers with minimal assistance and with use of hospital bed features in order to improve functional mobility and safety. Outcome: Progressing Goal: Strength - Patient will demonstrate understanding of exercise program. Outcome: Progressing Goal: Other - Pt will answer yes/no questions correctly and follow one-step commands >95% of thetime without verbal cueing to reflect improvements in cognition/arousal/attention in order to maximize participation in therapy sessions. Outcome: Progressing Problem: PT - General Goals Goal: Sitting Endurance/Balance - Patient will perform seated balance tasks for 10 minutes with independence and no UE support while maintaining an RPE of less than 5/10 to improve endurance and safety with seated tasks. Outcome: Ongoing Goal: Sit <-> Stand Transfers - Patient will perform sit to/from stand transfers with minimalassistance and of 2 people and least restrictive device in order to improve functional mobility andsafety. Outcome: Ongoing Goal: Stand/Squat Pivot Transfers - Patient will perform stand pivot transfer to/from bed/chair/commode with minimal assistance and of 2 people and least restrictive device in order to improve functional mobility and safety. Outcome: Ongoing * Plan of Care - Javed Sanchez OT - 05/18/2024 7:50 AM EST Problem: OT - ADLs Goal: Upper Body Dressing - Patient will complete upper body dressing task edge of bed with minimalassistance using adaptive equipment/compensatory strategies as needed for improved ability to complete self-care activities. Outcome: Ongoing Goal: Grooming - Patient will complete grooming edge of bed with minimal assistance for improved ability to safely complete ADLs. Outcome: Ongoing Problem: OT - Transfers Goal: Transfers Sit/Stand - Patient will demonstrate good safety awareness during sit to/from standfunctional transfer with minimal assistance and of 2 people and least restrictive device to demonstrate safe functional transfers. Outcome: Ongoing Problem: OT - Balance Goal: Balance - Seated - Patient will perform 15+ minutes of functional task in sitting with supervision and good balance to promote safety during self-care activities. Outcome: Ongoing Problem: OT - Cognition Goal: Cognition Simple ADL - Patient will demonstrate improved cognition, completing simple ADL task for 10+ minutes with no greater than min cues required to maintain attention. Outcome: Ongoing Problem: OT - Strength/ROM Goal: Strength/ROM ADL Participation - Patient will participate in UE exercise program with minimalassistance to prevent deconditioning while in hospital and to max UE ROM/Coordination/strength for ADLs. Outcome: Progressing * Nursing Notes - Ebony Fuentes RN - 05/17/2024 6:35 PM EST NG clogged, unable to unclog tube. [facility] notified. Attempted to place new NG, unable to advance tube. [facility] [employer] notified. * Plan of Care - AZAEL Blas - 05/17/2024 9:40 AM EST Problem: Dysphagia Goal: Effortful Swallow Goal - Patient will complete repetitions of effortful swallow until reaching a self-reported level of fatigue (7/10 rating) to improve pharyngeal clearance and airway protection during the swallow Outcome: Ongoing Goal: Solids - Patient will accept 5-10 trials of advanced solids showing adequate mastication, bolus formation and oral clearance without signs of pharyngeal residue or penetration/aspiration, to determine readiness for diet advancement Outcome: Ongoing Goal: Bolus challenge - Patient will accept trials of thin liquids x5-10 trials, given minimal cuesfor use of strategies to improve bolus control/timing of swallow initiation with no signs of aspiration to determine readiness for repeat study or diet Outcome: Ongoing Problem: Dysphagia Goal: Ongoing Assessment - Patient will participate in ongoing assessment by accepting various PO consistency trials with appropriate participation/oral acceptance and no significant respiratory complications to determine readiness for repeat study Outcome: Met Goal: MBS - Patient will participate in Modified Barium Swallow (MBS) Study to objectively assess oropharyngeal swallow function to most appropriately guide [employer] plan of care Outcome: Met * Plan of Care - Nazanin Kaye RD - 05/16/2024 1:31 PM EST Problem: Enteral Nutrition Goal: Feeding Tolerance Outcome: Progressing Nutrition Recommendations and Plan of Care: 1. Diet advancement pending MBS/per [employer] 2. Continue current enteral nutrition regimen: Nepro 1.8 @ 35 mL/hr- provides 840mL volume, 1512kcal, 68g pro, 134g CHO, 611mL free H2O - increase to 1pkt Prosource TF BID - provides additional 80kcal, 22g pro - at minimum recommend 30mL flushes q4 hrs to maintain tube patency 3. If assisted enteral nutrition is anticipated, recommend transitioning to a standard enteral formula. Goal of Jevity 1.5 @ 45 mL/hr. - continue 1pkt Prosource TF BID 4. RD will continue to follow per policy and assess more frequently if needed * Plan of Care - AZAEL Carvalho - 05/13/2024 10:30 AM EST Problem: Dysphagia Goal: FEES - Patient will participate in Fiberoptic Endoscopic Evaluation of Swallowing (FEES) study to objectively assess pharyngeal swallow function to most appropriately guide [employer] plan of care Outcome: Ongoing * Plan of Care - Ralph Shafer DO - 05/12/2024 4:10 PM EST Chart Review Nephrology has been asked to comment on the placement of a midline for this patient. Patient needs midline for lab draws and difficult stick. Ideally we would avoid PICC/midline placement to preserveupper limb vein function in case of need for future AV dialysis access. However, given this patient's clinical scenario and lack of alternative access options it is reasonable to place PICC/midline. Please use the patient's dominant arm for PICC if possible. Jaoo Shafer DO Nephrology Fellow PGY-5 [facility] Pager [phone] * Plan of Care - Javed Sanchez OT - 05/12/2024 12:20 PM EST Problem: OT - ADLs Goal: Upper Body Dressing - Patient will complete upper body dressing task edge of bed with minimalassistance using adaptive equipment/compensatory strategies as needed for improved ability to complete self-care activities. Outcome: Ongoing Goal: Grooming - Patient will complete grooming edge of bed with minimal assistance for improved ability to safely complete ADLs. Outcome: Ongoing Problem: OT - Transfers Goal: Transfers Sit/Stand - Patient will demonstrate good safety awareness during sit to/from standfunctional transfer with minimal assistance and of 2 people and least restrictive device to demonstrate safe functional transfers. Outcome: Ongoing Problem: OT - Balance Goal: Balance - Seated - Patient will perform 15+ minutes of functional task in sitting with supervision and good balance to promote safety during self-care activities. Outcome: Ongoing Problem: OT - Strength/ROM Goal: Strength/ROM ADL Participation - Patient will participate in UE exercise program with minimalassistance to prevent deconditioning while in hospital and to max UE ROM/Coordination/strength for ADLs. Outcome: Ongoing Problem: OT - Cognition Goal: Cognition Simple ADL - Patient will demonstrate improved cognition, completing simple ADL task for 10+ minutes with no greater than min cues required to maintain attention. Outcome: Ongoing * Plan of Care - AZAEL Blas - 05/12/2024 9:30 AM EST Problem: Dysphagia Goal: FEES - Patient will participate in Fiberoptic Endoscopic Evaluation of Swallowing (FEES) study to objectively assess pharyngeal swallow function to most appropriately guide [employer] plan of care Outcome: Ongoing * Plan of Care - Adriana Lima PT - 05/11/2024 10:40 AM EST Problem: PT - General Goals Goal: Supine <-> Sit Transfers - Patient will perform supine to/from sit transfers with minimal assistance and with use of hospital bed features in order to improve functional mobility and safety. Outcome: Progressing Goal: Sitting Endurance/Balance - Patient will perform seated balance tasks for 10 minutes with independence and no UE support while maintaining an RPE of less than 5/10 to improve endurance and safety with seated tasks. Outcome: Progressing Goal: Other - Pt will answer yes/no questions correctly and follow one-step commands >95% of thetime without verbal cueing to reflect improvements in cognition/arousal/attention in order to maximize participation in therapy sessions. Outcome: Progressing * Nursing Notes - Analia Jama RN - 05/11/2024 10:15 AM EST Images from the original note were not included. WOC/ET Nursing Consult/Evaluation Note Evaluated Mari Lopez for wounds located on RLQ abdomen. Mari is not sure how she got the wound. Description of wound: RLQ abdomen intertriginous dermatitis / edema related wound: Cleansed with Anasept wound cleanser and gauze. There is a moist wound red wound in the skin fold, likely dermatitis and edema related. Laura-wound skin is dry, blanchable and intact. No drainage. Applied Triad hydrophillic dressing (yellow tube) in a dime thick layer over wound and wound edges. Covered with a dry gauze dressing. Mari has scattered bruising and edema on her arms and right breast bruising. Recommendation: Consult to be completed, please re-consult for any further needs. RLQ Abdomen Wound: DAILY and prn. Cleanse with Anasept wound cleanser and gauze. Apply Triad hydrophillic dressing (yellow tube) in a dime thick layer over wound and wound edges. Cover with a dry gauze dressing. When cleansing, remove top layer of ointment only, then reapply. Do not scrub ointment off skin, it is designed to stick to raw areas and protect. Order in Workday # [id number] Supplied on Unit Bed Surface: Standard mattress Discharge Recommendations: Patient may continue care as described above at discharge. See image(s) below: Bhupendra Skin Assessment: Bhupendra Risk Assessment Sensory Perception: 2-->very limited Moisture: 3-->occasionally moist Activity: 1-->bedfast Mobility: 1-->completely immobile Nutrition: 3-->adequate Friction and Shear: 1-->problem Bhupendra Score: 11 Bhupendra Score: Bhupendra Score: 11 Body mass index is 39.94 kg/m . Total time spent in assessment and treatment of patient: 30 minutes LABS: Albumin Date Value Ref Range Status 05/04/2024 2.4 (L) 3.5 - 5.0 g/dL Final No results found for: PREALBUMIN Wound Documentation: 05/11/24 1008 Wound Dermatitis 05/10/242199 edema associated Lower;Right Abdomen Date First Assessed/Time First Assessed: 05/10/242199 Primary Wound Type: Dermatitis Present on Original Admission: (c) No Wound #: 1 Secondary Wound Type: edema associated Wound Location Orientation: Lower;Right Location: Abdomen Wound Image Dressing Status Changed/New;Dry;Intact Closure None Assessment Moist;[place];Subcutaneous Fat;Edema Laura-Wound Assessment Blanchable;Dry;Ecchymotic;Edema Wound Length (cm) 0.2 cm Wound Width (cm) 1.6 cm Wound Surface Area (cm^2) 0.32 cm^2 Wound Depth (cm) 0.1 cm Wound Volume (cm^3) 0.032 cm^3 Drainage Amount None Percentage Non-Viable Tissue none Treatment Applied antimicrobial agent (Anasept) $$ Dressing Applied Triad hydro;dry dressing Periwound Care Applied wound cleanser, cleansed with Date Dressing Changed 05/11/24 Plan Problem edema;chronic wound Current Plan barrier cream;dry dressing WOCT Visit Frequency PRN Last Date Seen 05/11/24 No past surgical history on file. Past Medical History: Diagnosis Date (HFpEF) heart failure with preserved ejection fraction CKD (chronic kidney disease) stage 4, GFR 15-29 ml/min COPD (chronic obstructive pulmonary disease) HTN (hypertension) Lymphedema Obesity TADEO (obstructive sleep apnea) VTE (venous thromboembolism) RN notified of assessment and plan. Please page #[phone] or reconsult with any further needs. Analia Jama RN MSN, RN, CNL, CWOCN * Plan of Care - Javed Sanchez OT - 05/11/2024 10:11 AM EST Problem: OT - ADLs Goal: Upper Body Dressing - Patient will complete upper body dressing task edge of bed with minimalassistance using adaptive equipment/compensatory strategies as needed for improved ability to complete self-care activities. Outcome: Ongoing Goal: Grooming - Patient will complete grooming edge of bed with minimal assistance for improved ability to safely complete ADLs. Outcome: Ongoing Problem: OT - Transfers Goal: Transfers Sit/Stand - Patient will demonstrate good safety awareness during sit to/from standfunctional transfer with minimal assistance and of 2 people and least restrictive device to demonstrate safe functional transfers. Outcome: Ongoing Problem: OT - Balance Goal: Balance - Seated - Patient will perform 15+ minutes of functional task in sitting with supervision and good balance to promote safety during self-care activities. Outcome: Ongoing Problem: OT - Strength/ROM Goal: Strength/ROM ADL Participation - Patient will participate in UE exercise program with minimalassistance to prevent deconditioning while in hospital and to max UE ROM/Coordination/strength for ADLs. Outcome: Ongoing Problem: OT - Cognition Goal: Cognition Simple ADL - Patient will demonstrate improved cognition, completing simple ADL task for 10+ minutes with no greater than min cues required to maintain attention. Outcome: Ongoing * Nursing Notes - Spencer-Jayesh Benitez RN - 05/11/2024 3:12 AM EST Vy Joseph notified:Patient just had 10 runs of V Tach; BP 128/60; MAP 87; HR 67; T 98.3; R 17. Not symptomatic. Says: I'm fine Ailyn Benitez RN * Nursing Notes - Jeff Liao RN - 05/10/2024 10:00 PM EST On admission to [facility], from SICU a dual RN initial assessment of skin condition was performed by Julio RN and Ralph RN. Skin Assessment: Skin not within defined limits. - Wound(s) identified: Yes - Consult ordered: Yes - Photo taken and uploaded into notes in IHIS: Yes Bhupendra Score: 11 LDA Added:Yes Jeff Liao RN * Transfer Note - Vy Curry MD - 05/10/2024 5:50 PM EST Internal Medicine Transfer Note Patient: Mari Lopez, 1940, [id number] Physician: Vy Curry MD, PGY1, GM8 service Assessment/Plan: Mari Lopez is a 83 y.o. female HTN, hypoparathyroidism, hypothyroidism, BAYRON, gastric bypass (2003), CKD stage 4, HFpEF, and TADEO. Initially admitted to MICU for status epilepticus now stable for transfer to the floor. Concern for status epilepticus, stable EEG at OSH with GPDs raising concern for status. MRI Brain w/wo 05/06 with small focus of abnormal signal in the medial right parietal lobe: Artifact vs. postictal changes.CTH without acute finding on05/05. LP 05/05 with opening pressure 23, no positive findings, S/p meningitis coverage with ampicillin, acyclovir, rocephin. No seizures since arrival to [facility]. - Neurology consulted and following - Keppra load 4500 mg followed by scheduled Vimpat given renal function Hypoxemic Respiratory failure, improved Post extubation stridor Intubated for airway protection at OSH given c/f status and extubated here on 05/08. 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 Coli UTI Urine positive for E. Coli at OSH. Now s/p several courses of abx - ceftriaxone (05/05-05/10)acyclovir(05/05-05/07), levaquin (-05/05) vancomycin (05/05-05/06) ampicillin (05/05-05/06) - S/p levophed in MICU - Sputum, blood, and CSF culture 05/05 with no acute findings, santillan cultured again on 05/08 given fever - 05/09 Bcx NGTD - Cdiff PCR negative - 05/08 LRCX light growth common oropharyngeal microbes - daily CBC Acute provoked DVT in the left internal jugular vein 05/08 CVC placement, line since removed - transitioned heparin gtt to eliquis on 05/10 JOSE on CKD stage 4, non-oliguric JOSE likely due to ischemic and septic ATN due to septic shock. Improving renal function. Required renal replacement during MICU stay for renal clearance. Now making good urine with prn lasix.. Serum creatinine 1.5-1.6 for a recent baseline. HD 05/06 for clearance, 5 hours PIRRT in the morning of 05/07/24 and stopped d/t filter clot. HD line since removed. - Followings Dr. Gilmore (health and fitness instructor) every 6 months - Nephrology consulted, appreciate recs regarding ongoing diuresis - LUE dupplex done given large clot pulled out from HD line - daily chem - consider discontinuing nephronex, prosource package if not indicated Acute on chronic HFpEF - Renal function and hemodynamics currently preclude HFpEF GDMT - can consider folding back in as she improves - spot dose lasix for goal even to -500mL Resolved hospital problems: Frequent PVC's bigeminy - resolved Likely secondary to RIJ placement on 05/05 at OSH. Resolved after removal of CVC - Daily chemistry - Goal K >4, Mg > 2, Phos > 2.5 Ileus - resolved 05/05 Kub mild bowel gas distention of small bowel, now having BM - tolerating tube feeds at goal Chronic problems: HTN - Hold lisinopril given JOSE on CKD Hypothyroidism - Continue home levothyroxine Complexity. Hypocalcemia - Continue to monitor and replete. Obesity, Class 3 Body mass index is 47.57 kg/m . - Follow with PCP for dietary and lifestyle modifications. . Any conditions listed below are present on admission unless otherwise specified. . DVT PPX: eliquis Code Status: Full Code Disposition: Transferred to [facility], will likely go to [facility] when medically cleared Vy Curry MD Internal Medicine-Pediatrics PGY-1 [facility] 05/10/24 Hospital Course: On 05/01/24 EMS transferred patient to [facility] and then she became non responsiveand hypotensive requiring norepinephrine. EEG noted GPDs and neurology was consulted and reviewed EEG who believed it met criteria status epilepticus. Patient was transferred to [facility] on 05/04 for further neurological medical management. She was admitted to the MICU for critical care management. Per H&P: The patient initially presented to the [facility] ED 05/01/24 with AMS found to havesevere metabolic derangements (pH 7.0, acute renal failure with uremia, hyperkalemia, acidosis). She was intubated, initiated on broad spectrum antibiotics, and placed on vasopressors after inadequate response to 30 cc/kg IVF resuscitation. CTH on admission reportedly normal (reports not available or included in transfer paperwork, OSH radiology contacted to push images). An infectious workup wasnotable only for E. Coli UTI (blood cultures remained negative). The patient was noted to have possible seizure (right arm twitching) and spot EEG was obtained w/ findings concerning for possible status epilepticus. Per neurology recommendations, the patient received a keppra load and was placed oncEEG. Interval history: LP obtained on 05/05 which was negative, placed on empiric meningitis/encephalitis coverage from 05/05 to 05/07. cEEG discontinued on 05/06 and MRI brain acquired with motion artifact and possible abnormal cortical/subcortical FLAIR signal in right parietal lobe. Started renal replacement 05/06 for renalclearance only and weaned off of vasopressors. Renal replacement sessions complicated by frequent clotting and discontinued given evidence of renal recovery, urine production. MRI cspine acquired 2/2due to concern for lack of extremity movement and bilateral upgoing babinski. Extubated 05/08 with subsequent laryngeal edema, received rac epi and decadron. Ultimately deemed stable for transfer to the floor on 05/09. Objective: Vitals: 05/10/24 1700 BP: 110/56 Pulse: 68 Resp: 13 Temp: SpO2: 98% O2 Device: room air (05/10/24 0800) Flow (L/min): 1 (05/10/24 0000) Gen: chronically ill appearing, obese, appears comfortable HENT: NCAT, EOMI, MMM Cardio: RRR, normal S1/S2, no murmur Resp: no respiratory distress, no wheezes, no increased WOB, expiratory rhonchi present GI: soft, NT, ND, normal BS MSK: no joint swelling or erythema, scattered ecchymoses with evidence of swelling in R hand, chronic skin changes Ext: warm and well-perfused, 2-3+ pitting edema in BLE, evidence of previous skin graft overlying left knee Neuro: alert and oriented Data Review: WBC/Hgb/Hct/Plts: 16.00/8.4/27.9/210 (05/10 0551) Na/K+/Phos/Mg/Ca: 142/4.0/3.7/2.0/-- (05/09 2355) Bun/Creat/Cl/CO2/Glucose: 48/2.50/105/27/94 (05/09 2355-05/10 0002) VASC DUPLEX VENOUS EXTREMITY UPPER LEFT Final Result MRI SPINE CERVICAL WITH AND WITHOUT CONTRAST Final Result IMPRESSION: Multilevel degenerative spondylosis and degenerative disc disease results in moderate spinal canal stenosis at C5-6 and C6-7 with moderate bilateral neural foraminal stenosis. Visualization severely degraded by motion. Evaluation for spinal cord signal is significantly degraded by motion and Puga artifact. Cannot exclude myelopathic cord signal. No definite myelopathic cord signal is visualized in the cervical spine. Suspected Puga artifact artifact in the upper thoracic spine. CHEST 1 VIEW PORTABLE Final Result IMPRESSION: Patient is rotated to the left. Medial bibasilar opacities appear slightly improved or more likely atelectasis in the setting of improved lung volumes. Mild central bronchial wall cuffing can be seen with early edema or bronchitis. CHEST 1 VIEW PORTABLE Final Result IMPRESSION: No evidence of pneumomediastinum or subcutaneous gas on radiograph. ABDOMEN 1 VIEW PORTABLE Final Result IMPRESSION: Improved ileus without residual dilated small bowel. BRAIN WITH AND WITHOUT CONTRAST Final Result IMPRESSION: Motion artifact on multiple pulse sequences degrades evaluation. Questionable small focus of abnormal cortical/subcortical FLAIR signal in the medial right parietal lobe. This could be artifactual or potentially related to postictal changes. PLAIN FILM FOR NEURO EXAM Final Result IMPRESSION: No radiopaque foreign bodies to preclude MRI. Intrauterine contraceptive device in place. CHEST 1 VIEW PORTABLE Final Result IMPRESSION: 1. Right IJ CVC with tip terminating at the superior cavoatrial junction. No pneumothorax. 2. Interval retraction of the endotracheal tube which now terminates 3.6 cm above the level of the lisa, in good position. 3. Unchanged left basilar volume loss, otherwise lungs are clear. I personally viewed and interpreted these images and I have reviewed and approved this report. HEAD WITHOUT CONTRAST Final Result IMPRESSION: No acute cranial abnormality. ABDOMEN 1 VIEW PORTABLE Final Result IMPRESSION: Enteric tube in stomach. Similar visualized dilated small bowel loops. CHEST 1 VIEW PORTABLE Final Result IMPRESSION: 1. Endotracheal tube at the level the lisa, suggest adjustment. 2. Other support device as described above, in appropriate positions. 3. Left basilar volume loss. No pneumothorax. I, Marva Wallis MD have discussed the critical finding/s of endotracheal tube malposition with PRATIK ENNIS on 05/05/2024 9:59 AM. I personally viewed and interpreted these images and I have reviewed and approved this report. ABDOMEN 1 VIEW PORTABLE Final Result IMPRESSION: 1. Enteric tube projects over the stomach. 2. Mild gaseous distention of small bowel may reflect ileus. * Treatment Plan - Pratik Ennis, MARKET MANAGER-DIGITAL DATA ANALYST - 05/10/2024 11:15 AM EST MICU [facility]ARE[facility] Treatment Plan Last 24 Hours: Weaned to 1L nasal cannula, diuresed to net even, transfer order for a floor bed placed 05/09, heparin gtt started for left internal jugular vein provoked DVT (line) Plan for the day: -stop heparin gtt and start eliquis for DVT treatment -order midline -PRN hydralazine for SBP>160 -remove do and use external do -diurese with 20mg lasix Q8 for 3 doses targeting I/O balance of even in the 24 hour period Problem list Concern for status epilepticus - Neurology consulted and following - Keppra load 4500 mg followed by scheduled Vimpat given renal function - CTH without acute finding on 05/05 - cEEG/spotEEG have shown no seizures since arrival to [facility] - MRI Brain w/wo 05/06 with small focus of abnormal signal in the medial right parietal lobe: Artifact vs. postictal changes - LP 05/05 with opening pressure 23, no postive findings, S/p meningitis coverage with ampicillin, acyclovir, rocephin. 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 Coli UTI at OSH - UC at OSH + for E. Coli - Ceftriaxone (05/05-05/10) - acyclovir (05/05-05/07/24), - S/p levaquin (-05/05) vancomycin (05/05-05/06) ampicillin (05/05-05/06) - S/p levophed stopped, goal MAP > 65 mmHg - Sputum, blood, and CSF culture 05/05 with no acute finding, santillan cultured again on 05/08 given febrile Acute provoked DVT in the left internal jugular vein -still waiting on official read, LUE dopplers completed -05/08 CVC, line since removed -change heparin gtt to eliquis on 05/10 JOSE on CKD stage 4, non-oliguric - good urine output overnight with a total of 60mg lasix on 05/09 - Serum creatinine 1.5-1.6 for a recent baseline - Followings Dr. Gilmore (health and fitness instructor) every 6 months - Nephrology consulted - HD 05/06 for clearance, 5 hours PIRRT in the morning of 05/07/24 and stopped d/t filter clot. HD line since removed - LUE dupplex done given large clot pulled out from HD line - daily chem Acute on chronic HFpEF - Renal function and hemodynamics preclude HFpEF GDMT - spot dose lasix for goal even to -500mL HTN - Hold lisinopril given JOSE on CKD Hypothyroidism - Continue home levothyroxine Complexity. Hypocalcemia - Continue to monitor and replete. Obesity, Class 3 Body mass index is 47.57 kg/m . - Follow with PCP for dietary and lifestyle modifications. . Any conditions listed below are present on admission unless otherwise specified. . F/E/N: No MIV / electrolytes replaced as needed / TF Prophylaxis: eliquis, no GI coverage due to tube feeds An Antibiotic Time-Out was performed during patient rounds on 05/10/24 Goals of Care: Full Code Lines/tubes: -PIVs -Do: 05/04-05/10 -NG/OG tube: 05/04 History of Present Illness Today is hospital day 6. Mari Lopez is a 83 y.o. female admitted to the ICU with AMS and concern with status epilepticus. Herpast medical history includes HTN, hyperparathyroidism, hypothyroidism, BAYRON, gastric bypass [2003],and TADEO. On 05/01/24 EMS transferred patient to [facility] and then she became non responsive and hypotensive requiring norepinephrine. EEG noted Gpds and neurology was consulted and reviewed EEG and met criteria status epilepticus. Patient was transferred to [facility] on 05/04 for further neurological medical management. She was admitted to the MICU for critical care management. Scheduled Meds: apixaban 10 mg Oral Q12H Followed by [START ON 05/17/2024] apixaban 5 mg Oral Q12H furosemide 20 mg Intravenous Q8H lacosamide 100 mg Intravenous Q12HNS Levothyroxine 125 mcg Oral Before BKF ProSource TF 1 Package Nasogastric Daily vitamin B complex/vitamin C/folic acid (NEPHRONEX) 5 mL Per NG tube Daily Water liquid (free water) 30 mL Per NG tube Q4H IV Infusions: Nepro/CarbSteady 35 mL/hr (05/10/24 0650) Physical Exam Vital Signs BP 120/56 Pulse 69 Temp 98.6 F (37 C) Resp 20 Ht 1.549 m (5' 1) Wt 114.2 kg (251 lb 12.3oz) SpO2 96% BMI 47.57 kg/m Smoking Status Unknown Constitutional: no acute distress, chronically ill appearing Neuro: Equal pupils, no focal deficits, weak in all extremities, awake, alert, tracks, nods yes/no to most questions, says here name at best HEENT: Normocephalic and atraumatic. Sclera non-icteric, mucus membranes moist Chest: clear to auscultation bilaterally. No wheezes, rhonchi, or rales. No accessory muscle use Cardiovascular: NSR, Normal s1/s2. No rubs, murmurs, or gallops. No JVD, pitting peripheral edema. Abdominal: Soft. Not TTP, active bowel sounds, poor appetite : Do catheter with yellow urine (to be removed 2/4) Extremities: warm, dry, well perfused Laboratory and Radiology Susceptibility data from last 90 days. Collected Specimen Info Organism 05/08/24 Respiratory from TRANSTRACHEAL ASPIRATE Common oropharyngeal microbes 05/05/24 Respiratory from TRACHEAL ASPIRATE Common oropharyngeal microbes Temp: [98.4 F (36.9 C)-99.1 F (37.3 C)] 98.6 F (37 C) Pulse (Heart Rate): [67-81] 69 Resp Rate: [14-20] 20 BP: (92-188)/(46-84) 120/56 O2 Sat (%): [95 %-99 %] 96 % Oxygen Therapy O2 Sat (%): 96 % O2 Device: room air Flow (L/min): 1 Fluid Management (24hrs): Intake/Output last 3 shifts: I/O last 3 completed shifts: In: 1239.1 [NG/GT:1239.1] Out: 1300 [Urine:1300] WBC/Hgb/Hct/Plts: 16.00/8.4/27.9/210 (05/10 0651) Na/K+/Phos/Mg/Ca: 142/4.0/3.7/2.0/-- (05/09 2355) Bun/Creat/Cl/CO2/Glucose: 48/2.50/105/27/94 (05/09 2355-05/10 0002) VASC DUPLEX VENOUS EXTREMITY UPPER LEFT Final Result MRI SPINE CERVICAL WITH AND WITHOUT CONTRAST Final Result IMPRESSION: Multilevel degenerative spondylosis and degenerative disc disease results in moderate spinal canal stenosis at C5-6 and C6-7 with moderate bilateral neural foraminal stenosis. Visualization severely degraded by motion. Evaluation for spinal cord signal is significantly degraded by motion and Puga artifact. Cannot exclude myelopathic cord signal. No definite myelopathic cord signal is visualized in the cervical spine. Suspected Puga artifact artifact in the upper thoracic spine. CHEST 1 VIEW PORTABLE Final Result IMPRESSION: Patient is rotated to the left. Medial bibasilar opacities appear slightly improved or more likely atelectasis in the setting of improved lung volumes. Mild central bronchial wall cuffing can be seen with early edema or bronchitis. CHEST 1 VIEW PORTABLE Final Result IMPRESSION: No evidence of pneumomediastinum or subcutaneous gas on radiograph. ABDOMEN 1 VIEW PORTABLE Final Result IMPRESSION: Improved ileus without residual dilated small bowel. BRAIN WITH AND WITHOUT CONTRAST Final Result IMPRESSION: Motion artifact on multiple pulse sequences degrades evaluation. Questionable small focus of abnormal cortical/subcortical FLAIR signal in the medial right parietal lobe. This could be artifactual or potentially related to postictal changes. PLAIN FILM FOR NEURO EXAM Final Result IMPRESSION: No radiopaque foreign bodies to preclude MRI. Intrauterine contraceptive device in place. CHEST 1 VIEW PORTABLE Final Result IMPRESSION: 1. Right IJ CVC with tip terminating at the superior cavoatrial junction. No pneumothorax. 2. Interval retraction of the endotracheal tube which now terminates 3.6 cm above the level of the lisa, in good position. 3. Unchanged left basilar volume loss, otherwise lungs are clear. I personally viewed and interpreted these images and I have reviewed and approved this report. HEAD WITHOUT CONTRAST Final Result IMPRESSION: No acute cranial abnormality. ABDOMEN 1 VIEW PORTABLE Final Result IMPRESSION: Enteric tube in stomach. Similar visualized dilated small bowel loops. CHEST 1 VIEW PORTABLE Final Result IMPRESSION: 1. Endotracheal tube at the level the lisa, suggest adjustment. 2. Other support device as described above, in appropriate positions. 3. Left basilar volume loss. No pneumothorax. I, Marva Wallis MD have discussed the critical finding/s of endotracheal tube malposition with PRATIK ENNIS on 05/05/2024 9:59 AM. I personally viewed and interpreted these images and I have reviewed and approved this report. ABDOMEN 1 VIEW PORTABLE Final Result IMPRESSION: 1. Enteric tube projects over the stomach. 2. Mild gaseous distention of small bowel may reflect ileus. The above plan was discussed with Dr. Barahona. Who is in agreement regarding the plan of care, including medications, and consultations and has been edited to reflect their recommendations. Connor Ennis APRN-DIGITAL DATA ANALYST pager [phone] [facility] Pager numbers [phone] [facility] pager [phone] [facility] pager [phone] ICU [place] pager [phone] [facility] pager [phone] * Plan of Care - Lamonte Hogan RN - 05/10/2024 1:06 AM EST Problem: Adult Inpatient Plan of Care Goal: Plan of Care Review Outcome: Progressing Goal: Patient-Specific Goal (Individualized) Outcome: Progressing Goal: Absence of Hospital-Acquired Illness or Injury Outcome: Progressing Goal: Optimal Comfort and Wellbeing Outcome: Progressing Goal: Readiness for Transition of Care Outcome: Progressing Problem: Enteral Nutrition Goal: Absence of Aspiration Signs and Symptoms Outcome: Progressing Goal: Safe, Effective Therapy Delivery Outcome: Progressing Goal: Feeding Tolerance Outcome: Progressing Goal: Feeding Tolerance Outcome: Progressing Problem: Skin Injury Risk Increased Goal: Skin Health and Integrity Outcome: Progressing Problem: Mechanical Ventilation Invasive Goal: Effective Communication Outcome: Completed Goal: Optimal Device Function Outcome: Completed Goal: Mechanical Ventilation Liberation Outcome: Completed Goal: Optimal Nutrition Delivery Outcome: Completed Goal: Absence of Device-Related Skin and Tissue Injury Outcome: Completed Goal: Absence of Ventilator-Induced Lung Injury Outcome: Completed * Treatment Plan - Pratik Ennis, MARKET MANAGER-DIGITAL DATA ANALYST - 05/09/2024 12:44 PM EST MICU [facility] Treatment Plan Last 24 Hours: Given 24 hours of dexamethasone for post-extubation stridor, weaned to 1L O2 by nasal cannula Plan for the day: -schedule 2 doses of lasix 40mg -transfer to a floor bed -time out rocephin for 05/14 (5 day course) Problem list Concern for status epilepticus - Neurology consulted and following - Keppra load 4500 mg followed by scheduled Vimpat given renal function - MRI spine ordered given weakness, stiff neck, + babinski reflex. - CTH without acute finding on 05/05 - cEEG read 05/05-05/06 with GPDs but no seizures - MRI Brain w/wo 05/06 with small focus of abnormal signal in the medial right parietal lobe: Artifact vs. postictal changes - LP 05/05 with opening pressure 23, not postive finding. S/p meningitis coverage with ampicillin, acyclovir. - UC at OSH + for E. Coli - Spot EEG on 05/08 given deviated gaze and frequent blinking event c/f subclinical seizure, if any positive finding, will change to cEEG Hypoxemic Respiratory failure Post extubation stridor - dexamethasone 6mg Q6 for 24 hours (complete) - Intubated for airway protection at OSH given c/f status - Baseline room air - Extubated on 05/08, complicated by stridor post extubation, s/p racemic epi and dexa - Sputum culture 05/05 negative, given fever, repeat culture sent on 05/08 - CXR 05/08 without acute finding - Continue NC 1L, wean as tolerate - PRN guaifenesin for cough ordered - Spot diuresis, goal net even to negative Acute blood loss on chronic anemia - Acute anemia 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 No melena/bloody bowel movement - Hemoglobin dropped to 5.8 on 05/06 - No S/S of active bleeding - Transfuse goal H > 7 Frequent PVC's bigeminy - Likely secondary to RIJ placement by CXR - 05/05 20 cm CVC placed into RIJ by OSH - Removed CVC and ectopy resolved - Daily chemistry - Goal K >4, Mg > 2, Phos > 2.5 Ileus - now having BMs - 05/05 Kub mild bowel gas distention of small bowel - tolerating tube feeds at goal Sepsis - E. Coli UTI at OSH - UA at [facility] with + bacteria - Antibiotics - Ceftriaxone (05/05-) - Continue acyclovir (05/05-05/07/24), - S/p levaquin (-05/05) vancomycin (05/05-05/06) ampicillin (05/05-05/06) - S/p levophed stopped, goal MAP > 65 mmHg - CVC discontinued - Sputum, blood, and CSF culture 05/05 with no acute finding, santillan cultured again on 05/08 given febrile Acute provoked DVT in the left internal jugular vein -05/08 CVC, line since removed -start heparin gtt JOSE on CKD stage 4, non-oliguric - good urine output overnight with a total of 120mg lasix on 05/08 - Likely secondary to shock - Serum creatinine 1.5-1.6 at 6 months ago - Followings Dr. Gilmore (health and fitness instructor) every 6 months - Nephrology consulted - HD 05/06 for clearance, 5 hours PIRRT in the morning of 05/07/24 and stopped d/t filter clot. HD line discontinued - LUE dupplex ordered given large clot pulled out from HD line - Chemistry daily, replace as needed - Renally dose medications - Avoid nephrotoxic medications as able Acute on chronic HFpEF - Renal function and hemodynamics preclude HFpEF GDMT - spot dose lasix HTN - Hold lisinopril given JOSE on CKD Hypothyroidism - Continue home levothyroxine Complexity. Hypocalcemia - Continue to monitor and replete. Thrombocytopenia - Continue to monitor. Obesity, Class 3 Body mass index is 47.57 kg/m . - Follow with PCP for dietary and lifestyle modifications. . Any conditions listed below are present on admission unless otherwise specified. . F/E/N: No MIV / electrolytes replaced as needed / TF Prophylaxis: heparin gtt, no GI coverage due to tube feeds An Antibiotic Time-Out was performed during patient rounds on 05/09/24 Goals of Care: Full Code Lines/tubes: -PIVs -Do: 05/04 -NG/OG tube: 05/04 History of Present Illness Today is hospital day 5. Mari Lopez is a 83 y.o. female admitted to the ICU with AMS and concern with status epilepticus. Herpast medical history includes HTN, hyperparathyroidism, hypothyroidism, BAYRON, gastric bypass [2004],and TADEO. On 05/01/24 EMS transferred patient to [facility] and then she became non responsive and hypotensive requiring norepinephrine. EEG noted Gpds and neurology was consulted and reviewed EEG and met criteria status epilepticus. Patient was transferred to [facility] on 05/04 for further neurological medical management. She was admitted to the MICU for critical care management Scheduled Meds: [START ON 05/10/2024] cefTRIAXone 2 g Intravenous Q24H furosemide 40 mg Intravenous Once heparin 7,500 Units Subcutaneous Q8H 0800/1600/2200 lacosamide 100 mg Intravenous Q12HNS Levothyroxine 125 mcg Oral Before BKF ProSource TF 1 Package Nasogastric Daily vitamin B complex/vitamin C/folic acid (NEPHRONEX) 5 mL Per NG tube Daily Water liquid (free water) 30 mL Per NG tube Q4H IV Infusions: Nepro/CarbSteady 35 mL/hr (05/09/24 0800) Physical Exam Vital Signs BP 124/56 Pulse 76 Temp 98.8 F (37.1 C) Resp 14 Ht 1.549 m (5' 1) Wt 114.2 kg (251 lb 12.3 oz) SpO2 98% BMI 47.57 kg/m Smoking Status Unknown Constitutional: no acute distress, chronically ill appearing Neuro: Equal pupils, no focal deficits, weak in all extremities, awake, alert, tracks, nods yes/no to most questions HEENT: Normocephalic and atraumatic. Sclera non-icteric, mucus membranes moist Chest: clear to auscultation bilaterally. No wheezes, rhonchi, or rales. No accessory muscle use Cardiovascular: NSR, Normal s1/s2. No rubs, murmurs, or gallops. No JVD, pitting peripheral edema. Abdominal: Soft. Not TTP, active bowel sounds, poor appetite : Do catheter with yellow urine Extremities: warm, dry, well perfused Laboratory and Radiology Susceptibility data from last 90 days. Collected Specimen Info Organism 05/05/24 Respiratory from TRACHEAL ASPIRATE Common oropharyngeal microbes Temp: [98.6 F (37 C)-101.3 F (38.5 C)] 98.8 F (37.1 C) Pulse (Heart Rate): [72-93] 76 Resp Rate: [14] 14 BP: (102-154)/(50-86) 124/56 O2 Sat (%): [93 %-100 %] 98 % Weight: [114.2 kg (251 lb 12.3 oz)] 114.2 kg (251 lb 12.3 oz) Oxygen Therapy O2 Sat (%): 98 % O2 Device: (P) nasal cannula Flow (L/min): (S) 1 Fluid Management (24hrs): Intake/Output last 3 shifts: I/O last 3 completed shifts: In: 406.5 [I.V.:74.6; NG/GT:220; IV Piggyback:111.8] Out: 2750 [Urine:2750] WBC/Hgb/Hct/Plts: 16.92/8.8/28.1/118 (05/09 138) Na/K+/Phos/Mg/Ca: 140/4.1/3.8/2.0/-- (05/09 138-05/09 148) Bun/Creat/Cl/CO2/Glucose: 35/2.66/104/27/139 (05/09 138) VASC DUPLEX VENOUS EXTREMITY UPPER LEFT MRI SPINE CERVICAL WITH AND WITHOUT CONTRAST Final Result IMPRESSION: Multilevel degenerative spondylosis and degenerative disc disease results in moderate spinal canal stenosis at C5-6 and C6-7 with moderate bilateral neural foraminal stenosis. Visualization severely degraded by motion. Evaluation for spinal cord signal is significantly degraded by motion and Puga artifact. Cannot exclude myelopathic cord signal. No definite myelopathic cord signal is visualized in the cervical spine. Suspected Puga artifact artifact in the upper thoracic spine. CHEST 1 VIEW PORTABLE Final Result IMPRESSION: Patient is rotated to the left. Medial bibasilar opacities appear slightly improved or more likely atelectasis in the setting of improved lung volumes. Mild central bronchial wall cuffing can be seen with early edema or bronchitis. CHEST 1 VIEW PORTABLE Final Result IMPRESSION: No evidence of pneumomediastinum or subcutaneous gas on radiograph. ABDOMEN 1 VIEW PORTABLE Final Result IMPRESSION: Improved ileus without residual dilated small bowel. BRAIN WITH AND WITHOUT CONTRAST Final Result IMPRESSION: Motion artifact on multiple pulse sequences degrades evaluation. Questionable small focus of abnormal cortical/subcortical FLAIR signal in the medial right parietal lobe. This could be artifactual or potentially related to postictal changes. PLAIN FILM FOR NEURO EXAM Final Result IMPRESSION: No radiopaque foreign bodies to preclude MRI. Intrauterine contraceptive device in place. CHEST 1 VIEW PORTABLE Final Result IMPRESSION: 1. Right IJ CVC with tip terminating at the superior cavoatrial junction. No pneumothorax. 2. Interval retraction of the endotracheal tube which now terminates 3.6 cm above the level of the lisa, in good position. 3. Unchanged left basilar volume loss, otherwise lungs are clear. I personally viewed and interpreted these images and I have reviewed and approved this report. HEAD WITHOUT CONTRAST Final Result IMPRESSION: No acute cranial abnormality. ABDOMEN 1 VIEW PORTABLE Final Result IMPRESSION: Enteric tube in stomach. Similar visualized dilated small bowel loops. CHEST 1 VIEW PORTABLE Final Result IMPRESSION: 1. Endotracheal tube at the level the lisa, suggest adjustment. 2. Other support device as described above, in appropriate positions. 3. Left basilar volume loss. No pneumothorax. I, Marva Wallis MD have discussed the critical finding/s of endotracheal tube malposition with PRATIK ENNIS on 05/05/2024 9:59 AM. I personally viewed and interpreted these images and I have reviewed and approved this report. ABDOMEN 1 VIEW PORTABLE Final Result IMPRESSION: 1. Enteric tube projects over the stomach. 2. Mild gaseous distention of small bowel may reflect ileus. The above plan was discussed with Dr. Barahona. Who is in agreement regarding the plan of care, including medications, and consultations and has been edited to reflect their recommendations. Connor Ennis MARKET MANAGER-DIGITAL DATA ANALYST pager [phone] MICU CAREY Pager numbers [phone] MICU SHOE pager [phone] A-H Romie ICU pager [phone] ICU [place] pager [phone] ICU [facility] pager [phone] * Plan of Care - Fouzia Hernández, PT - 05/09/2024 10:52 AM EST Problem: PT - General Goals Goal: Supine <-> Sit Transfers - Patient will perform supine to/from sit transfers with minimal assistance and with use of hospital bed features in order to improve functional mobility and safety. Outcome: Ongoing Goal: Sitting Endurance/Balance - Patient will perform seated balance tasks for 10 minutes with independence and no UE support while maintaining an RPE of less than 5/10 to improve endurance and safety with seated tasks. Outcome: Ongoing Goal: Sit <-> Stand Transfers - Patient will perform sit to/from stand transfers with minimalassistance and of 2 people and least restrictive device in order to improve functional mobility andsafety. Outcome: Ongoing Goal: Stand/Squat Pivot Transfers - Patient will perform stand pivot transfer to/from bed/chair/commode with minimal assistance and of 2 people and least restrictive device in order to improve functional mobility and safety. Outcome: Ongoing Goal: Strength - Patient will demonstrate understanding of exercise program. Outcome: Ongoing Goal: Other - Pt will answer yes/no questions correctly and follow one-step commands >95% of thetime without verbal cueing to reflect improvements in cognition/arousal/attention in order to maximize participation in therapy sessions. Outcome: Ongoing * Plan of Care - Katina Murillo OT - 05/09/2024 10:52 AM EST Problem: OT - ADLs Goal: Upper Body Dressing - Patient will complete upper body dressing task edge of bed with minimalassistance using adaptive equipment/compensatory strategies as needed for improved ability to complete self-care activities. Outcome: Ongoing Goal: Grooming - Patient will complete grooming edge of bed with minimal assistance for improved ability to safely complete ADLs. Outcome: Ongoing Problem: OT - Transfers Goal: Transfers Sit/Stand - Patient will demonstrate good safety awareness during sit to/from standfunctional transfer with minimal assistance and of 2 people and least restrictive device to demonstrate safe functional transfers. Outcome: Ongoing Problem: OT - Balance Goal: Balance - Seated - Patient will perform 15+ minutes of functional task in sitting with supervision and good balance to promote safety during self-care activities. Outcome: Ongoing Problem: OT - Strength/ROM Goal: Strength/ROM ADL Participation - Patient will participate in UE exercise program with minimalassistance to prevent deconditioning while in hospital and to max UE ROM/Coordination/strength for ADLs. Outcome: Ongoing Problem: OT - Cognition Goal: Cognition Simple ADL - Patient will demonstrate improved cognition, completing simple ADL task for 10+ minutes with no greater than min cues required to maintain attention. Outcome: Ongoing * Plan of Care - Anthony Mathis RN - 05/09/2024 8:26 AM EST Problem: Adult Inpatient Plan of Care Goal: Plan of Care Review Outcome: Progressing Goal: Patient-Specific Goal (Individualized) Outcome: Progressing Goal: Absence of Hospital-Acquired Illness or Injury Outcome: Progressing Goal: Optimal Comfort and Wellbeing Outcome: Progressing Goal: Readiness for Transition of Care Outcome: Progressing Problem: Mechanical Ventilation Invasive Goal: Effective Communication Outcome: Progressing Goal: Optimal Device Function Outcome: Progressing Goal: Mechanical Ventilation Liberation Outcome: Progressing Goal: Optimal Nutrition Delivery Outcome: Progressing Goal: Absence of Device-Related Skin and Tissue Injury Outcome: Progressing Goal: Absence of Ventilator-Induced Lung Injury Outcome: Progressing Problem: Enteral Nutrition Goal: Absence of Aspiration Signs and Symptoms Outcome: Progressing Goal: Safe, Effective Therapy Delivery Outcome: Progressing Goal: Feeding Tolerance Outcome: Progressing Goal: Feeding Tolerance Outcome: Progressing Problem: Skin Injury Risk Increased Goal: Skin Health and Integrity Outcome: Progressing * Treatment Plan - Karrie Sims APRN-CJ - 05/08/2024 2:12 PM EST ICU PLAN OF CARE Mari Lopez is a 83 y.o. female admitted to the ICU with AMS and concern with status epilepticus. Herpast medical history includes HTN, hyperparathyroidism, hypothyroidism, BAYRON, gastric bypass [2004],and TADEO. Per chart review neighbor called the squad as the patient was getting sick and progressively worsened and only alert to person. On 05/01/24 EMS transferred patient to [facility] and then was non responsive and hypotensive requiring norepinephrine. EEG noted Gpds and neurology was consulted and reviewed EEG and met criteria status epilepticus. Patient was transferred to [facility] on 05/04 for further neurological medical management. She was admitted to the MICU for critical care management (See H&P for full admit details and PMH) Last 24 Hours Remains on minimal ventilation. Febrile with TMAX 101.3. HDS. Patient is more awake and response toverbal command with deviated gaze and frequent blinking event. Passed SBT in the morning, extubatedto NC. Post extubation with stridor noted s/p racemic epi x 2 and dexa Plan - Resume subcutaneous heparin given no active bleeding - Santillan culture given febrile - Continue ceftriaxone, broaden antibiotics coverage if hemodynamically unstable - Dexamethasone for 24 hours - Spot EEG given concern for subclinical seizure Physical Exam RASS: -- Overall CAM-ICU: Positive Constitutional: Lying in bed, appears ill, NAD Eyes, Ears, Nose, Mouth/Throat: PERRL, no scleral icterus, no drainage noted from these orifices, ETT present Neurologic: Drowsy but follows command intermittently, no focal deficits noted Chest: Diminished breath sounds throughout, stridor noted a few minutes post extubation CV: RRR, S1S2, no murmurs, rubs or gallops noted Abdomen: Soft, obese, non-tender, non-distended, active BSx4 Extremities: Generalized edema with UE > LE noted, pulses palpable +2 : Yellow urine via do catheter Skin: Warm, moist, and ecchymosis Psychiatric: non agitated Hematological/lymphatic: No obvious lymphadenopathy. Last Bowel Movement: 05/08/24 Laboratory Studies and Objective Data Temp: [99.7 F (37.6 C)-101.3 F (38.5 C)] 100.4 F (38 C) Pulse (Heart Rate): [72-93] 88 Resp Rate: [14] 14 BP: (130-180)/(60-85) 132/62 O2 Sat (%): [98 %-100 %] 98 % Oxygen Therapy O2 Sat (%): 98 % O2 Device: nasal cannula with humidification Flow (L/min): 6 Oxygen Concentration (%): 30 Fluid Management (24hrs): Intake/Output last 3 shifts: I/O last 3 completed shifts: In: 525.6 [I.V.:74.6; NG/GT:451] Out: 1974 [Urine:1974] WBC/Hgb/Hct/Plts: 15.34/8.8/28.9/77 (05/08 0034) Na/K+/Phos/Mg/Ca: 140/3.9/3.3/2.3/-- (05/08 0034-05/08 1158) Bun/Creat/Cl/CO2/Glucose: 28/2.34/106/22/107, 109 (05/08 0034) Pertinent imaging: MRI Brain: 05/06 Motion artifact on multiple pulse sequences degrades evaluation. Questionable small focus of abnormal cortical/subcortical FLAIR signal in the medial right parietallobe. This could be artifactual or potentially related to postictal changes ABD Xray: 05/07 No evidence of pneumomediastinum or subcutaneous gas on radiograph ABD Xray: 05/08 pending CTH: 05/05 No acute cranial abnormality CXR: 05/05 1. Right IJ CVC with tip terminating at the superior cavoatrial junction. No pneumothorax. 2. Interval retraction of the endotracheal tube which now terminates 3.6 cm above the level of the lisa, in good position. 3. Unchanged left basilar volume loss, otherwise lungs are clear ABD Xray: 05/07 Improved ileus without residual dilated small paul Positive Cultures: Urine: E-Coli ([facility]) Problem List: Concern for status epilepticus - Likely secondary to infectious process - Neurology consulted and following - Keppra load 4500 mg followed by scheduled Vimpat given renal function - MRI spine ordered given weakness, stiffed neck, + babinski reflex. Per neurology, prefer with contrast, but ok without it - CTH without acute finding on 05/05 - cEEG read 05/05-05/06 with GPDs but no seizures - MRI Brain w/wo 05/06 with small focus of abnormal signal in the medial right parietal lobe: Artifact vs. Postictal changes - LP 05/05 with opening pressure 23, not postive finding. S/p meningitis coverage with ampicillin, acyclovir. - UC at OSH + for E. Coli - Spot EEG on 05/08 given deviated gaze and frequent blinking event c/f subclinical seizure, if any positive finding, will change to cEEG Respiratory failure Post extubation stridor - Intubated for airway protection at OSH given c/f SE - Baseline room air - Extubated on 05/08, complicated by stridor post extubation, s/p racemic epi and dexa - Sputum culture 05/05 negative, given fever, repeat culture sent on 05/08 - CXR 05/08 without acute finding - Continue NC 6 L, wean as tolerate - PRN guaifenesin for cough ordered - Spot diuresis, goal net even to negative Acute blood loss on chronic anemia - 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 No melena/bloody bowel movement - Hemoglobin dropped to 5.8 on 05/06 - S/p one unit of PRBCs, H up to 7.5 - No S/S of active bleeding - Transfuse goal H > 7 Frequent PVC's bigeminy - Likely secondary to RIJ placement by CXR - 05/05 20 cm CVC placed into RIJ by OSH - Retracted ~4 cm and decreased ectopy - Daily chemistry - Goal K >4, Mg > 2, Phos > 2.5 Ileus - 05/05 Kub mild bowel gas distention of small bowel - Ng was on iLWS, however, no residue - No complaint of abdominal pain, start trickle feeding given no obstruction - ABD Xray 05/07/24 improved - TF advanced to goal Sepsis - E. Coli UTI at OSH - UA at [facility] with + bacteria - Antibiotics - Ceftriaxone (05/05-) - Continue acyclovir (05/05-05/07/24), - S/p levaquin (-05/05) vancomycin (05/05-05/06) ampicillin (05/05-05/06) - S/p levophed stopped, goal MAP > 65 mmHg - CVC discontinued - Sputum, blood, and CSF culture 05/05 with no acute finding, santillan cultured again on 05/08 given febrile JOSE on CKD stage 4, non-oliguric - Likely secondary to shock - Serum creatinine 1.5-1.6 at 6 months ago - Following with Nephrology, Dr. Gilmore every 6 months - Nephrology consulted - HD 05/06 for clearance, 5 hours PIRRT in the morning of 05/07/24 and stopped d/t filter clotted off.HD line discontinued - LUE dupplex ordered given large clot pulled out from HD line - Chemistry daily, replace as needed - Renally dose medications - Avoid nephrotoxic medications as able Acute on chronic HFpEF - Renal function and hemodynamics preclude HFpEF GDMT - Hold home fursomide HTN - Hold lisinopril given JOSE on CKD Hypothyroidism - Continue home levothyroxine Complexity Hypocalcemia - Continue to monitor and replete. Thrombocytopenia - Continue to monitor. Obesity, Class 3 Body mass index is 47.4 kg/m . - Follow with PCP for dietary and lifestyle modifications. . Any conditions listed below are present on admission unless otherwise specified. . F/E/N: No MIV/as needed/TFs Prophylaxis: Pepcid/Heparin subcutaneous Critical care mobility: PT/OT if tolerate An Antibiotic Time-Out was performed during patient rounds on 05/08/24 Goals of Care: Full Code Lines/tubes: -PIVs -Do: 05/04 -NG/OG tube: 05/04 The above plan was discussed on multidisciplinary rounds. I have consulted with Dr. Pratik Young MD regarding the plan of care, including medications. The above note reflects the attending's recommendations. CHRISTINE Armas * Nursing Notes - Charlie Saini RN - 05/07/2024 11:07 AM EST 10mL blood aspirated from each CVC port (red, blue). Red port difficult to aspirate with clots present. Blue port aspirated and flushed without difficulty or clots present. Hold on repeat Alteplase dose, per . * Treatment Plan - CHRISTINE Armas - 05/07/2024 8:28 AM EST ICU PLAN OF CARE Mari Lopez is a 83 y.o. female admitted to the ICU with AMS and concern with status epilepticus. Herpast medical history includes HTN, hyperparathyroidism, hypothyroidism, BAYRON, gastric bypass [2004],and TADEO. Per chart review neighbor called the squad as the patient was getting sick and progressively worsened and only alert to person. On 05/01/24 EMS transferred patient to [facility] and then was non responsive and hypotensive requiring norepinephrine. EEG noted Gpds and neurology was consulted and reviewed EEG and met criteria status epilepticus. Patient was transferred to [facility] on 05/04 for further neurological medical management. She was admitted to the MICU for critical care management (See H&P for full admit details and PMH) Last 24 Hours Brain MRI last night. PIRRT started post MRI and clotted off 5 hours after PIRRT. Started propofol given frequent coughing and interfering with DOOR TO DOOR SELLING AGENT. Received blood transfusion for acute hemoglobin drop. Passed SBT this morning, however, mental status remains poor Plan - Resume subcutaneous heparin given no active bleeding - Discontinue acyclovir given negative LP culture - Change ceftriaxone to non RN CORONARY CARE UNIT coverage - Discontinue iHD given remained clotting off after alteplase - Ok to extubate if mental status improving given passed SBT. Physical Exam RASS: -1-->drowsy (05/07 1600) Overall CAM-ICU: Positive Constitutional: Lying in bed, appears ill, NAD Eyes, Ears, Nose, Mouth/Throat: PERRL, no scleral icterus, no drainage noted from these orifices, ETT present Neurologic: Drowsy but follows command, no focal deficits noted Chest: Diminished breath sounds throughout, no wheezing noted CV: RRR, S1S2, no murmurs, rubs or gallops noted Abdomen: Soft, obese, non-tender, non-distended, active BSx4 Extremities: Generalized edema with UE > LE noted, pulses palpable +2 : Yellow urine via do catheter Skin: Warm, dry, and ecchymosis Psychiatric: non agitated Hematological/lymphatic: No obvious lymphadenopathy. Last Bowel Movement: 05/07/24 Laboratory Studies and Objective Data Temp: [98.2 F (36.8 C)-100.2 F (37.9 C)] 99.7 F (37.6 C) Pulse (Heart Rate): [64-91] 77 Resp Rate: [12-46] 14 BP: (100-165)/(53-79) 149/65 O2 Sat (%): [92 %-100 %] 98 % Weight: [113.8 kg (250 lb 14.1 oz)] 113.8 kg (250 lb 14.1 oz) Oxygen Therapy O2 Sat (%): 98 % O2 Device: ventilator (mechanical ventilation) Oxygen Concentration (%): 30 Fluid Management (24hrs): Intake/Output last 3 shifts: I/O last 3 completed shifts: In: 2653.1 [I.V.:1581; Blood:315; NG/GT:711; IV Piggyback:46.1] Out: 753 [Urine:753] WBC/Hgb/Hct/Plts: 16.89/8.5/27.3/73 (05/07 819-05/07 114) Na/K+/Phos/Mg/Ca: 137/3.6/3.2/1.8/-- (05/07 713) Bun/Creat/Cl/CO2/Glucose: 24/2.11/106/24/88 (05/07 713) Last 24 hours imaging: MRI Brain: 05/06 Motion artifact on multiple pulse sequences degrades evaluation. Questionable small focus of abnormal cortical/subcortical FLAIR signal in the medial right parietallobe. This could be artifactual or potentially related to postictal changes ABD Xray: 05/07 Pending CTH: 05/05 No acute cranial abnormality CXR: 05/05 1. Right IJ CVC with tip terminating at the superior cavoatrial junction. No pneumothorax. 2. Interval retraction of the endotracheal tube which now terminates 3.6 cm above the level of the lisa, in good position. 3. Unchanged left basilar volume loss, otherwise lungs are clear ABD Xray: 05/05 Enteric tube in stomach. Similar visualized dilated small bowel loops Positive Cultures: Urine: E-Coli ([facility]) Problem List: Concern for status epilepticus - Likely secondary to infectious process - Neurology consulted and following - Keppra load 4500 mg followed by scheduled Vimpat given renal function - CTH without acute finding on 05/05 - cEEG read 05/05-05/06 with GPDs but no seizures - MRI Brain w/wo 05/06 with small focus of abnormal signal in the medial right parietal lobe: Artifact vs. Postictal changes - LP 05/05 with opening pressure 23, not postive finding - UC at OSH + for E. Coli - 05/05 blood and respiratory cultures pending Respiratory failure - Intubated for airway protection at OSH given c/f SE - Not on continuous sedation - Minimal vent setting with FIO2 21% - Sputum culture 05/05 negative - Passed SBT on 05/06, mental status and weakness preclude from extubation - Continuous sedation with propofol given violent cough interfere with PIRRT - PRN guaifenesin for cough ordered Acute on Chronic anemia - Likely due to DOOR TO DOOR SELLING AGENT in the setting of acute illness - Hemoglobin dropped to 5.8 on 05/06 - S/p one unit of PRBCs, H up to 7.5 - No S/S of active bleeding - Transfuse goal H > 7 Frequent PVC's bigeminy - Likely secondary to RIJ placement by CXR - 05/05 20 cm CVC placed into RIJ by OSH - Retracted ~4 cm and decreased ectopy - Daily chemistry - Goal K >4, Mg > 2, Phos > 2.5 Ileus - 05/05 Kub mild bowel gas distention of small bowel - Ng was on iLWS, however, no residue - No complaint of abdominal pain, start trickle feeding given no obstruction - ABD Xray 05/07/24 improved - TF advanced to goal Sepsis - E. Coli UTI at OSH - UA at [facility] with + bacteria - Antibiotics - Ceftriaxone (05/05-) - Continue acyclovir (05/05-05/07/24), - S/p levaquin (-05/05) vancomycin (05/05-05/06) ampicillin (05/05-05/06) - S/p levophed stopped, goal MAP > 65 mmHg - CVC discontinued - Sputum, blood, and CSF culture 05/05 with no acute finding JOSE on CKD stage 4, non-oliguric - Likely secondary to shock - Serum creatinine 1.5-1.6 at 6 months ago - Following with Nephrology, Dr. Gilmore every 6 months - Nephrology consulted - HD 05/06 for clearance, 5 hours PIRRT in the morning of 05/07/24 and stopped d/t filter clotted off - Chemistry daily, replace as needed - Renally dose medications - Avoid nephrotoxic medications as able Acute on chronic HFpEF - Renal function and hemodynamics preclude HFpEF GDMT - Hold home fursomide HTN - Hold lisinopril Hypothyroidism - Continue home levothyroxine Complexity Hypocalcemia - Continue to monitor and replete. Thrombocytopenia - Continue to monitor. Obesity, Class 3 Body mass index is 47.4 kg/m . - Follow with PCP for dietary and lifestyle modifications. . Any conditions listed below are present on admission unless otherwise specified. . F/E/N: No MIV/as needed/TFs Prophylaxis: Pepcid/Heparin subcutaneous Critical care mobility: PT/OT if tolerate An Antibiotic Time-Out was performed during patient rounds on 05/07/24 Goals of Care: Full Code Lines/tubes: -ETT: 05/04 at OSH -CVC: 05/04 CVC Necessity: DOOR TO DOOR SELLING AGENT -Do: 05/04 -NG/OG tube: 05/04 The above plan was discussed on multidisciplinary rounds. I have consulted with Dr. Pratik Young MD regarding the plan of care, including medications. The above note reflects the attending's recommendations. Karrie Sims APRN-CJ * Plan of Care - Harish Parry MD - 05/07/2024 1:02 AM EST Patient is coughing frequently which is disrupting the ability to proceed with DOOR TO DOOR SELLING AGENT due to pressures. Given the need for DOOR TO DOOR SELLING AGENT for clearance post MRI contrast, we will sedate with propofol overnight to suppress cough to allow for clearance and re-evaluate in the AM. Will put her vent back on a rate aswell. Harish Parry MD - PGY-3 Internal Medicine Pager #[phone] * Plan of Care - Josefina Cary MD - 05/06/2024 1:51 PM EST Nephrology Brief Plan of Care Note Ok for gadolinium. * Plan of Care - Grazyna Dillard RD - 05/06/2024 12:04 PM EST Problem: Enteral Nutrition Goal: Feeding Tolerance Outcome: Progressing Note: Nutrition Recommendations and Plan of Care: 1. Agree with trickle TF with Nepro. Advance as tolerated to goal 35 mL/hr. 2. Add 1 pkt ProSource TF once daily. - Goal rate TF and ProSource TF in total will provide 840 mL, 1552 kcal (33 kcal/kg), 79 g PRO (1.7g pro/kg), 134 g CHO and 611 mL free water. - Additional free water flushes per primary team. Recommend minimum 30 mL x 4/day to maintain tube patency. 3. Monitor TF intake, bowel function, skin integrity, weight change, lab values. 4. RD to follow. * Nursing Notes - Cary Arevalo RN - 05/06/2024 10:45 AM EST 05/06/24 1030 Tx Assessment/Safety (Pre/Post) Less Than 30 Days Hepatitis B Surface Antigen Status Negative Hepatitis B Surface Antigen Resulted From [facility] [place] lab Date Hepatitis B Surface Antigen Status Obtained 05/05/24 Post Procedure Bleach Disinfectant? No Blood Liters Processed (BLP) 59.7 Transport Modality not applicable Dialyzer Clearance moderate (rt camber large clott in it) Tolerance to Dialysis Procedure Tolerated well initially going for 0- 1 going for [address] Cary called changed to no fluid removal gave back what was removed at end of hd.Ran in average A profile did have a few C b/p remained stable.Catheter ran fair only able to run at 300 in reverse do to art collapse. Both tegos were removed lines power fluahed still only able to get 300 tried to increase when pressures were good but would then start deopping out . No fluid removed . Treatment Assessment Blood Flow Rate (BFR) mL/min 200 Hemodialysis, Comments (Off circ) Vital Signs Temp 98.8 F (37.1 C) Pulse (Heart Rate) 77 BP 133/62 MAP (mmHg) 91 mmHg O2 Sat (%) 96 % Tunneled Central Line - Double Lumen 05/04/24 2100 red blue internal jugular vein, left Placement Date/Time: 05/04/24 2100 Present On Admission : (c) yes Lumen 1: red Lumen 2: blue Location: internal jugular vein, left Device/Lot Number: dialysis/apheresis catheter Additional Comments: NOT TUNNELLED HD LINE Site Preparation/Maintenance dressing: dry and intact;dressing: antimicrobial Date Dressing Changed 05/05/24 Securement sutures, secured with Lumen 1 Patency/Maintenance flushed without difficulty Date Lumen 1 Cap/Connector Changed/Applied 05/06/24 Lumen 2 Patency/Maintenance flushed without difficulty Date Lumen 2 Cap/Connector Changed/Applied 05/06/24 Treatment Record Stop Time 1028 Fluid Volume Removal 1400 Total Fluid Given 1400 Respiratory WDL Rhythm/Pattern, Respiratory artificial airway;mechanical device Post-Hemodialysis Assessment Report given to Frida BROWN * Treatment Plan - Karrie Sims APRN-CJ - 05/06/2024 10:06 AM EST ICU PLAN OF CARE Mari Lopez is a 83 y.o. female admitted to the ICU with AMS and concern with status epilepticus. Herpast medical history includes HTN, hyperparathyroidism, hypothyroidism, BAYRON, gastric bypass [2004],and TADEO. Per chart review neighbor called the squad as the patient was getting sick and progressively worsened and only alert to person. On 05/01/24 EMS transferred patient to [facility] and then was non responsive and hypotensive requiring norepinephrine. EEG noted Gpds and neurology was consulted and reviewed EEG and met criteria status epilepticus. Patient was transferred to [facility] on 05/04 for further neurological medical management. She was admitted to the MICU for critical care management (See H&P for full admit details and PMH) Last 24 Hours No acute event overnight. LP done yesterday. Noted blood tinged secretion from NG/OG tube since last night and rectal bleeding this morning with suppository. H/H seems stable. No minimal vent settingwith FIO2 21%. Passed SBT Plan - Hold subcutaneous heparin today, resume tomorrow if H/H stable - Discontinue vancomycin and ampicillin given negative MRSA and LP with no concern for listeria meningitis - Continue ceftriaxone and acyclovir pending culture result - Follow up Brain MRI, need PIRRT after imaging - Monitor rectal bleeding - Discontinue RIJ CVC - Continue ventilator support given altered mental status and weakness, will re- evaluate tomorrow Physical Exam RASS: -1-->drowsy (05/06 1200) Overall CAM-ICU: Positive Constitutional: Lying in bed, appears ill, NAD Eyes, Ears, Nose, Mouth/Throat: PERRL, no scleral icterus, no drainage noted from these orifices, ETT present Neurologic: A&O to self and place, follows command, no focal deficits noted Chest: Diminished breath sounds throughout, no wheezing noted CV: RRR, S1S2, no murmurs, rubs or gallops noted Abdomen: Soft, obese, non-tender, non-distended, active BSx4 Extremities: Generalized edema with UE > LE noted, pulses palpable +2 : Yellow urine via do catheter Skin: Warm, dry, and ecchymosis Psychiatric: non agitated Hematological/lymphatic: No obvious lymphadenopathy. Last Bowel Movement: 05/06/24 Laboratory Studies and Objective Data Temp: [98.2 F (36.8 C)-99.5 F (37.5 C)] 99.5 F (37.5 C) Pulse (Heart Rate): [69-91] 85 Resp Rate: [11-21] 11 BP: (106-145)/(51-92) 145/65 O2 Sat (%): [95 %-98 %] 96 % Weight: [113.3 kg (249 lb 12.5 oz)] 113.3 kg (249 lb 12.5 oz) Oxygen Therapy O2 Sat (%): 96 % O2 Device: ventilator (mechanical ventilation) Oxygen Concentration (%): 21 Fluid Management (24hrs): Intake/Output last 3 shifts: I/O last 3 completed shifts: In: 4061.7 [I.V.:1833; NG/GT:240; IV Piggyback:588.7; Dialysis:1400] Out: 2301 [Urine:900] WBC/Hgb/Hct/Plts: 19.33/7.1/22.9/90 (05/06 003) Na/K+/Phos/Mg/Ca: 137/4.1/5.2/2.2/-- (05/06 000) Bun/Creat/Cl/CO2/Glucose: 52/3.60/107/21/ (05/06 000) Last 24 hours imaging: CTH: 05/05 No acute cranial abnormality CXR: 05/05 1. Right IJ CVC with tip terminating at the superior cavoatrial junction. No pneumothorax. 2. Interval retraction of the endotracheal tube which now terminates 3.6 cm above the level of the lisa, in good position. 3. Unchanged left basilar volume loss, otherwise lungs are clear ABD Xray: 05/05 Enteric tube in stomach. Similar visualized dilated small bowel loops Positive Cultures: Urine: E-Coli (OSH) Problem List: Concern for status epilepticus - Likely secondary to infectious process - Neurology consulted and following - Keppra load 4500 mg followed by scheduled Vimpat given renal function - CTH without acute finding on 05/05 - cEEG read 05/05-05/06 with GPDs but no seizures - MRI Brain w/wo ordered - LP 05/05 with opening pressure 23, and culture pending - UC at OSH + for E. Coli - 05/05 blood and respiratory cultures pending Respiratory failure - Intubated for airway protection at OSH given c/f SE - Not on continuous sedation - Minimal vent setting with FIO2 21% - Sputum culture sent and pending - Passed SBT, mental status and weakness preclude from extubation Frequent PVC's bigeminy - Likely secondary to RIJ placement by CXR - 05/05 20 cm CVC placed into RIJ by OSH - Retracted ~4 cm and decreased ectopy - Daily chemistry - Goal K >4, Mg > 2, Phos > 2.5 Ileus - 05/05 Kub mild bowel gas distention of small bowel - Ng was on iLWS, however, no residue - No complaint of abdominal pain, start trickle feeding given no obstruction - PRN ABD Xray if needed Sepsis - E. Coli UTI at OSH - UA at [facility] with + bacteria - Antibiotics - Continue acyclovir (05-05-), ceftriaxone (05/05-) - S/p levaquin (-05/05) vancomycin (05/05-05/06) ampicillin (05/05-05/06) - S/p levophed stopped, goal MAP > 65 mmHg - CVC discontinued - Sputum, blood, and CSF culture 05/05 pending JOSE on CKD stage 4, non-oliguric - Likely secondary to shock - Serum creatinine 1.5-1.6 at 6 months ago - Following with Nephrology, Dr. Gilmore every 6 months - Nephrology consulted - HD 05/06 for clearance - May need another PIRRT vs. iHD post Brain MRI for clear contrast - Chemistry daily, replace as needed - Renally dose medications - Avoid nephrotoxic medications as able Acute on chronic HFpEF - Renal function and hemodynamics preclude HFpEF GDMT - Hold home fursomide HTN - Hold lisinopril Hypothyroidism - Continue home levothyroxine Complexity Hypocalcemia - Continue to monitor and replete. Thrombocytopenia - Continue to monitor. Obesity, Class 3 Body mass index is 47.2 kg/m . - Follow with PCP for dietary and lifestyle modifications. . Any conditions listed below are present on admission unless otherwise specified. . F/E/N: No MIV/as needed/TFs Prophylaxis: Pepcid/Heparin subcutaneous Critical care mobility: PT/OT if tolerate An Antibiotic Time-Out was performed during patient rounds on 05/06/24 Goals of Care: Full Code Lines/tubes: -ETT: 05/04 at OSH -CVC: 05/04 CVC Necessity: DOOR TO DOOR SELLING AGENT -Do: 05/04 -NG/OG tube: 05/04 The above plan was discussed on multidisciplinary rounds. I have consulted with Dr. Pratik Young MD regarding the plan of care, including medications. The above note reflects the attending's recommendations. CHRISTINE Armas * (ACP) Advance Care Planning - LOUIS Beckett - 05/05/2024 1:44 PM EST SAMIR obtained copy of patient's HCPOA and Living Will documents. HCPOA # 1: Gonzalo Lopez (son) [phone] HCPOA # 2: Alex Donaldson (friend) [phone] SW will scan these legal documents into the chart and update the demographic sheet. USAMA Beckett, LOUIS [address] [place] [address] Branch Manager [phone] Available on secure chat * Research Note - Alfred Us RCP - 05/05/2024 11:06 AM EST OPTI- Oxygen Research Note Patient is enrolled in the OPTI - Oxygen Clinical Trial. Completed and reviewed ABG. Arterial Blood Gas Saturation: Lab Results Component Value Date/Time [id number] 98 05/05/2024 05:13 AM SpO2 on the patient monitor at the time ABG was drawn = 100 %. Decision tree: If SaO2 < SpO2 by 1-2% or SaO2 > SpO2 within 5% = Conservative O2 group If SaO2 < SpO2 by 3-5% = Boosted/[place] O2 group If SaO2 and SpO2 differs by > 5%, exclude from study. Based on the OPTI-Oxygen study protocol, the patient was assigned to the Chosen group for Opti-Oxygen Study: Conservative Oxygen group Enrolled patient into the OPTI-Oxygen Algorithm study. Patient will be randomized into the Conservative algorithm. * Plan of Care - Kasey Jane RN - 05/05/2024 8:11 AM EST Problem: Adult Inpatient Plan of Care Goal: Plan of Care Review Outcome: Progressing Goal: Patient-Specific Goal (Individualized) Outcome: Progressing Goal: Absence of Hospital-Acquired Illness or Injury Outcome: Progressing Goal: Optimal Comfort and Wellbeing Outcome: Progressing Goal: Readiness for Transition of Care Outcome: Progressing Problem: Mechanical Ventilation Invasive Goal: Effective Communication Outcome: Progressing Goal: Optimal Device Function Outcome: Progressing Goal: Mechanical Ventilation Liberation Outcome: Progressing Goal: Optimal Nutrition Delivery Outcome: Progressing Goal: Absence of Device-Related Skin and Tissue Injury Outcome: Progressing Goal: Absence of Ventilator-Induced Lung Injury Outcome: Progressing Problem: Enteral Nutrition Goal: Absence of Aspiration Signs and Symptoms Outcome: Not Progressing Goal: Safe, Effective Therapy Delivery Outcome: Not Progressing Goal: Feeding Tolerance Outcome: Not Progressing Problem: Skin Injury Risk Increased Goal: Skin Health and Integrity Outcome: Progressing * Treatment Plan - Oralia Mary APRN-DIGITAL DATA ANALYST - 05/05/2024 7:47 AM EST ICU PLAN OF CARE Mari Lopez is a 83 y.o. female admitted to the ICU with AMS and concern with status epilepticus. Herpast medical history includes HTN, hyperparathyroidism, hypothyroidism, BAYRON, gastric bypass [2004],and TADEO. Per chart review neighbor called the squad as the patient was getting sick and progressively worsened and only alert to person.on 05/01/24 EMS transferred patient to [facility] and then was non responsive and hypotensive requiring norepinephrine. EEG noted Gpds and neurology was consulted and reviewed EEG and met criteria status epilepticus. Patient was transferred to [facility] on 05/04 for further neurological medical management. She was admitted to the MICU for critical care management. (See H&P for full admit details and PMH) Last 24 Hours Admit Plan LP Blood and urine Discontinued cefepime Added acyclovir ampicillin ceftriaxone Physical Exam RASS: -3-->moderate sedation (05/05 1600) Overall CAM-ICU: Positive Constitutional: ill appearing and no acute distress Neuro: PERRL +cough/corneal/gag reflex BUE/BLE withdraws Respiratory: mechanically ventilated lungs clear throughout equal chest rise and fall Cardiovascular: S1S2 no murmurs rubs or gallops tele SR/ST with pvcs Gastrointestinal: obese soft non distended non tender + bowel sounds x 4 quadrants Laboratory Studies and Objective Data Temp: [98.4 F (36.9 C)-99.1 F (37.3 C)] 98.4 F (36.9 C) Pulse (Heart Rate): [68-91] 75 Resp Rate: [18-22] 19 BP: (82-130)/(46-92) 111/56 O2 Sat (%): [93 %-100 %] 97 % Weight: [113.3 kg (249 lb 12.5 oz)-116.3 kg (256 lb 6.3 oz)] 113.3 kg (249 lb 12.5 oz) Oxygen Therapy O2 Sat (%): 97 % O2 Device: ventilator (mechanical ventilation) Oxygen Concentration (%): 21 Fluid Management (24hrs): Intake/Output last 3 shifts: I/O last 3 completed shifts: In: 578.9 [I.V.:329.4; Irrigation:10; IV Piggyback:239.5] Out: 860 [Urine:850; Other:10] WBC/Hgb/Hct/Plts: 16.19/7.9/24.3/83 (05/05 0010) Na/K+/Phos/Mg/Ca: 136/4.2/3.8/2.2/-- (05/05 0904-05/05 1301) Bun/Creat/Cl/CO2/Glucose: 51/3.42/105/22/88 (05/05 0904) Last 24 hours imagin/30 cEEG no seizures 05/05 Cxr ET tube 1.5 above lisa Positive Cultures: 05/04 urine pending 05/05 Respiratory and blood pending Problem List: Concern for status epilepticus Likely secondary to infectious process [facility] neurology E consultation Keppra load 4500 Vimpat scheduled 100 mg q12h [ Neurology consulted and following 05/05 CTH cEEG read 05/05 GPDs no seizures MRI after EEG 05/04 urine concern for UTI 05/05 blood and respiratory cultures pending 05/05 LP results pending Recent Labs 05/04/24 2108 AMMONIA 31 ALT 11 AST 23 ALKPHOS 84 Respiratory failure Secondary to SE Intubated 05/04 OSH pH/PCO2/PO2/HCO3: 7.47/27/119/20 (05/05 0513) Cxr no acute process RIJ deep ET tube 1.5 cm above lisa Retracted ET tube 2 cm Retracted RIJ ~4 cm sutured and placed steri-strips Acprvc 18 450 6 21% Frequent PVC's bigeminy Likely secondary to RIJ placement by CXR 05/05 20 cm CVC placed into RIJ by OSH Retracted ~4 cm and decreased ectopy Ileus 05/05 Kub mild bowel gas distention of small bowel Ng to iLWS Kub in am Sepsis Osh ecoli UTI Levaquin [given allergies] [osh -05/05] vancomycin [05/05-] acyclovir [05/05-] ampicillin [05/05-] ceftriaxone [05/05-] Mrsa swab pending 05/01 intubated Map goal > 65 mmHg Levophed stopped 05/04 urinalysis to reflex concern for UTI culture pending 05/05 respiratory and blood cultures pending Recent Labs 05/04/24 2108 05/05/24 0010 WBC 17.39* 16.19* LACT 0.8 -- Temp (24hrs), Av.8 F (37.1 C), Min:98.4 F (36.9 C), Max:99.1 F (37.3 C) JOSE Likely secondary to shock 05/05 urine output 450 mL/24hrs Nephrology consulted Chemistry dailys Replete electrolytes Renally dose medications Avoid nephrotoxic medications as able Recent Labs 05/05/24 0010 05/05/24 0904 05/05/24 1301 CREATSERUM 3.49* 3.42* -- BUN 50* 51* -- GFR 13* 13* -- SODIUM 136 136 -- POTASSIUM 4.3 4.3 4.2 PHOSPHORUS 3.8 3.8 -- Acute on chronic HFpEF Renal function and hemodynamics preclude HFpEF GDMT Hold home fursomide Htn Hold lisinopril Hypothyroidism Continue home levothyroxine Complexity. Thrombocytopenia - Continue to monitor. Obesity, Class 3 Body mass index is 47.2 kg/m . - Follow with PCP for dietary and lifestyle modifications. . F/E/N: none/as indicated/npo Prophylaxis: heparin chlorhexidine Critical care mobility: pt/ot An Antibiotic Time-Out was performed during patient rounds on 05/05/24 Goals of Care: Full Code Lines/tubes: -ETT: POA -CVC: POA -temp hd POA -Do: POA -NG/OG tube: POA The above plan was discussed on multidisciplinary rounds. I have consulted with Dr. Pratik Young MD regarding the plan of care, including medications. The above note reflects the attending's recommendations. CHRISTINE Braun DNP Pager [phone] documented in this encounterUniversity [facility]02-12-[facility] History of Present illness Narrative* Rebeca Gillespie - 05/18/2024 3:02 PM EST 05/18/2024 [facility] cancelled transport, changed to [facility] at 4pm. Informed Brisa BATES ofchange. JANA Lazo Automation Technician Commercial Review Appraiser [phone] * JANA Byrne - 05/18/2024 2:15 PM EST Social Work Final Discharge Plan and Transportation Discharge Disposition: Inpatient Rehab Facility Community Agency Name(s) For Handoff: [facility] Name For Handoff: [facility] Phone For Handoff: Fax For Handoff: Selected Continued Care - Admitted Since 05/04/2024 No services have been selected for the patient. Transportation Transport Request Mode of Transfer: [facility] Name of Discharge Transport Company: [facility] ETA: 05/18/2024 @ 1630 Patient medically stable for discharge per physician/medical team. Transportation arranged as listed above. Patient will discharge to [facility]. Facility, Patient/Family, Bedside RN, CCM, and medical team are aware and agreeable to transportation time. Social work wi ll remain available to assist as needed. Brisa FORRESTER, JANA Area Operations Director Can be reached by secure chat. * Kin Goodwin, PT - 05/18/2024 11:50 AM EST Acute Physical Therapy Treatment Prior Gross Functional Mobility: Current AM-PAC score(s): CURRENT AM-PAC Mobility Raw Score: 7 Based on the above AM-PAC score(s) and PT clinical judgment, patient is a good candidate for discharge to Group Home Facility Barriers to discharge home: Patient needs assistance with functional mobility, Patient needs assistance with IADLs (see note below), Cognitive impairments that impact safety (see note below), Lack ofsupervision necessary to mitigate fall risk, Patient needs assistance with self-care for medical condition (see note below), Patient needs assistance with medication management Mobility equipment available at home: ADL equipment available at home: Equipment needed for discharge: to be determined Current therapy frequency recommendation in acute: PT Therapy Frequency: 5 times a week Activity Recommendations for outside of rehab session: bed exer, chair position, paulo Precautions and Weightbearing Status: Existing Precautions/Restrictions: fall No critical lines at this time Patient Safety Communication Prior to Visit: Nursing Subjective: Pt supine in bed, agreeable to bed level exercises/activities with PT this date Pain: General Pain Documentation (Adult, OB, Peds) Presence of Pain: denies pain/discomfort Presence of Pain Score (Auto-calculated): 0 Objective/Observation: Vitals/Vitals Responses to Treatment: no adverse reaction to session Cognition Overall Cognitive Status: Impaired Arousal/Alertness: Appropriate responses to stimuli Orientation Level: Oriented to person, Oriented to place, Oriented to situation (cues for time) Following Commands: Follows multistep commands with increased time, Follows multistep commands withrepetition Safety Judgment: Decreased awareness of need for safety Awareness of Errors: Assistance required to correct errors made Deficits: Fully aware of deficits Cognition Comments: cooperative with tx but limited functional endurance Extremity Assessments: See PT Evaluation flowsheet for Extremity Measurement updates. Skin and Edema: Balance: Standing Balance Standing Balance Skilled Intervention/Details: deferred per pt's request Mobility Assessment/Intervention: Rolling/Turning Mobility [place] Level: Rolling/Turning: maximum assist (25% patient effort) Physical Assist: Rolling/Turnin person assist Bed Features/Set-up: Rolling/Turning: Flat, Friction reducing device Skilled Rationale: Positioning, Sequencing, Hand placement Skilled Intervention/Details: Rolling/Turning: rolling both side for positioning and pressure relieft Scooting Bridging Mobility [place] Level: Scooting/Bridging: dependent (less than 25% patient effort) Physical Assist: Scooting/Bridgin person assist Bed Features/Set-up: Scooting/Bridging: Flat, Friction reducing device Skilled Rationale: Sequencing, Positioning, Hand placement Skilled Intervention/Details: Scooting/Bridging: boost hob for optimal positioning Transfer Assessment/Intervention: Sit to Stand Transfer [place] Level: Sit->Stand: not tested Gait/Functional Mobility Assessment/Intervention: Gait Assessment [place] Level: Gait: unable to assess Stairs Assessment/Intervention: Outcome Score(s): CURRENT [facility] Basic Mobility Inpatient Short Form Turning over in bed: 2 - A Lot of Assistance Moving from lying on back to sittin - Total Assistance Moving to and from bed to chair: 1 - Total Assistance Sitting/standing from chair: 1 - Total Assistance Walk in hospital room: 1 - Total Assistance Climbing 3-5 steps with a railin - Total Assistance CURRENT [facility] Mobility Raw Score: 7 CURRENT [facility] Mobility Functional Limitation: 92.36% Impaired in Basic Mobility Interventions: Intervention 1 Intervention Name: Therapeutic exercises performed portia LE supine ankle PF/DF, A/AAROM hip/knee flexion, hip abd, gluteal sets, SLR with verbal/tactile cues fro form and rest breaks to improve mobility, strength and endurance and aid with functional transfers Assessment & Plan: Today's PT treatment session focused on: Therapeutic Exercises, Functional Bed Mobility/transfers, Aerobic capacity/endurance. Pt demonstrates progression towards goals and PT POC adjusted to allow for progression. At this time, patient's deficits that contribute to impaired functional mobility include: Decreased Strength/Endurance, Limited standing tolerance, Limited sitting tolerance, Difficulty with bed mobility, Difficulty with transfers, Decreased functional mobility. Pt would benefit fromcontinued skilled PT to address noted deficits,improve safe functional mobility and return to priorlevel of function. Patient Instruction/Education this session: Learners: Patient Education provided: Activity outside of therapy, Bed mobility, Discharge recommendations, Energy conservation strategies, Home exercise program Teaching method: Demonstration, Verbal Education/Instruction Learner response: States/Identifies/Teaches back Learning preferences: Auditory, Visual Learning considerations: Cognition Plan for next session: functional transfers, strengthening/endurance exer, balance Acute PT Goals Plan of Care by Kin Goodwin PT at 05/18/2024 11:50 AM Version 1 of 1 Problem: PT - General Goals Goal: Supine <-> Sit Transfers - Patient will perform supine to/from sit transfers with minimal assistance and with use of hospital bed features in order to improve functional mobility and safety. Outcome: Progressing Goal: Strength - Patient will demonstrate understanding of exercise program. Outcome: Progressing Goal: Other - Pt will answer yes/no questions correctly and follow one-step commands >95% of thetime without verbal cueing to reflect improvements in cognition/arousal/attention in order to maximize participation in therapy sessions. Outcome: Progressing Problem: PT - General Goals Goal: Sitting Endurance/Balance - Patient will perform seated balance tasks for 10 minutes with independence and no UE support while maintaining an RPE of less than 5/10 to improve endurance and safety with seated tasks. Outcome: Ongoing Goal: Sit <-> Stand Transfers - Patient will perform sit to/from stand transfers with minimalassistance and of 2 people and least restrictive device in order to improve functional mobility andsafety. Outcome: Ongoing Goal: Stand/Squat Pivot Transfers - Patient will perform stand pivot transfer to/from bed/chair/commode with minimal assistance and of 2 people and least restrictive device in order to improve functional mobility and safety. Outcome: Ongoing PT treatment consisted of the following to progress towards the above goal(s): PT Evaluation and Treatment Time Therapeutic Exercise Time Entry: 14 Therapeutic Activity Time Entry: 7 Treating Therapist: Kin Goodwin PT Additional Details: PT Co-Eval/Treatment Information Co-evaluation/co-treatment performed?: No simultaneous skilled care performed Assisted by during session: D[employer]ENSION WAREHOUSE SUPERVISOR PPE used during patient interaction: gloves Patient location at end of session: bed with head of bed elevated Alarms on at end of session: RN aware, none altered Needs in reach. Time In: 1150 Time Out: 1212 Total Visit Time: 22 minutes Total Treatment Time (skilled, billable minutes): 21 minutes Upon discontinuation of Acute Care Physical Therapy Services or patient discharge from the hospitalthis note represents the current Physical Therapy Discharge Summary. * Rebeca Gillespie - 05/18/2024 10:28 AM EST Discharge Transportation Transportation for discharge arranged Mode of Transfer: BLS Name of Discharge Transport Company: [employer] [facility] ETA: 05/18/2024 @ 1630 Pick-up from [facility] 0933/A Destination [facility] [address] [place] [address] JANA Lazo Automation Technician Commercial Review Appraiser [phone] * Javed Sanchez OT - 05/18/2024 7:50 AM EST Acute Occupational Therapy Treatment Prior Gross Functional Mobility: Current AM-PAC score(s): CURRENT AM-PAC Activity Raw Score: 10 Based on the above AM-PAC score(s), and OT clinical judgment, discharge destination recommendation is: Group Home Facility Barriers to discharge home: Patient needs assistance with functional mobility, Patient needs assistance with ADLs, Patient needs assistance with IADLs (see note below), Patient needs assistance with medication management, Patient needs assistance with self-care for medical condition (see note below), Cognitive impairments that impact safety (see note below), Lack of supervision necessary to mitigate fall risk Mobility equipment available at home: ADL equipment available at home: Equipment recommendations for discharge: to be determined Equipment issued: Current therapy frequency recommendation(s) in acute: 4 times a week Precautions and Weightbearing Status: OT Existing Precautions/Restrictions: fall Patient Safety Communication Prior to Visit: Nursing Subjective: Pt pleasant this date Pain: General Pain Documentation (Adult, OB, Peds) Presence of Pain: denies pain/discomfort Presence of Pain Score (Auto-calculated): 0 Comfort/Acceptable General Pain Level/Goal: 0 DVPRS (Defense and Veterans Pain Rating Scale) DVPRS: Rest: 0- no pain DVPRS: Activity: 0- no pain Objective/Observation: Vitals/Vitals Responses to Treatment: WFL O2 Device: room air Cognition Overall Cognitive Status: Impaired Arousal/Alertness: Appropriate responses to stimuli Orientation Level: Oriented to person, Oriented to place, Oriented to time (with cues (continues tosay night time)) Following Commands: Follows multistep commands with repetition, Follows multistep commands with increased time Safety Judgment: Decreased awareness of need for safety, Decreased awareness of need for assistance Awareness of Errors: Assistance required to correct errors made, Assistance required to identify errors made Deficits: Decreased awareness of deficits Attention Span: Difficulty attending to directions Memory: Decreased short term memory, Decreased recall of recent events Problem Solving: Assistance required to implement solutions, Assistance required to generate solutions, Assistance required to identify errors made Cognition Comments: pt requires continued re-driection for activity, orientation reporting it is night time, and safety ADL Assessment/Intervention: Eating Assistance: Set up supervision Eating Location: bed level Eating Deficit: Increased time to complete, Generalized weakness, Initiation Eating Skilled Rationale (Verbal/Tactile/Visual/Demonstration): Setup, Supervision, Technique of activity Eating Intervention/Details: Increased A for tray set up and initation Extremity Assessments: See OT Evaluation flowsheet for Extremity Measurement updates. Skin and Edema: Skin Integrity Skin Integrity Description: Swelling Edema Edema: present Location: generalized Mobility Assessment/Intervention: Rolling/Turning Mobility Skilled Intervention/Details: Rolling/Turning: Pt reamins bed level due to the need for DIMENSION WAREHOUSE SUPERVISOR vitals,meds, and therapy Scooting Bridging Mobility [place] Level: Scooting/Bridging: dependent (less than 25% patient effort) Physical Assist: Scooting/Bridgin person assist Bed Features/Set-up: Scooting/Bridging: Head of bed elevated, Friction reducing device Skilled Rationale: Positioning, Verbal cues, Initiation and execution of task Skilled Intervention/Details: Scooting/Bridging: x1 to HOB for improved positioning for feeding Functional Mobility: Wheelchair Assessment Patient currently uses wheelchair?: No CURRENT [facility] Daily Activity Inpatient Short Form Putting on/Taking Off Lower Body Clothin - Total Assistance Bathin - Total Assistance Toiletin - Total Assistance Putting on/Taking Off Upper Body Clothin - A Lot of Assistance Groomin - A Lot of Assistance Eatin - A Little Assistance CURRENT [facility] Activity Raw Score: 10 CURRENT [facility] Activity Functional Limitation/Modifier: 74.70% Currently Impaired in Daily Activity- CL Interventions: Intervention 1 Intervention Name: BUE Exercises Sets/Reps/Duration: 1 set / 10 reps Details: While supine in bed pt provided HEP wiht visuals, verbal education, and visual demonstration for BUE exercises for 1 set / 10 reps encouraged for 3x/day for increased strength for ADLs with yellow theraband. Pt provided education for the following exercises; shoulder flexion/extension, ER/IR, diagonal flexion/extension, and elbow flexion/extension and verbalizes understanding. Assessment & Plan: Upon arrival pt supine in bed wiht DIMENSION WAREHOUSE SUPERVISOR taking vitals but agreeable to skilled therapy requiring increased cues for safety, orientation, and attention span. Pt participating in positioning for feedingat bed level and BUE exercises this date. Patient Instruction/Education this session: Learners: Patient Education provided: Bed mobility, Handout provided and reviewed, Home exercise program Plan for next session: EOB Acute OT Goals Plan of Care by Javed Sanchez OT at 05/18/2024 7:50 AM Version 1 of 1 Problem: OT - ADLs Goal: Upper Body Dressing - Patient will complete upper body dressing task edge of bed with minimalassistance using adaptive equipment/compensatory strategies as needed for improved ability to complete self-care activities. Outcome: Ongoing Goal: Grooming - Patient will complete grooming edge of bed with minimal assistance for improved ability to safely complete ADLs. Outcome: Ongoing Problem: OT - Transfers Goal: Transfers Sit/Stand - Patient will demonstrate good safety awareness during sit to/from standfunctional transfer with minimal assistance and of 2 people and least restrictive device to demonstrate safe functional transfers. Outcome: Ongoing Problem: OT - Balance Goal: Balance - Seated - Patient will perform 15+ minutes of functional task in sitting with supervision and good balance to promote safety during self-care activities. Outcome: Ongoing Problem: OT - Cognition Goal: Cognition Simple ADL - Patient will demonstrate improved cognition, completing simple ADL task for 10+ minutes with no greater than min cues required to maintain attention. Outcome: Ongoing Problem: OT - Strength/ROM Goal: Strength/ROM ADL Participation - Patient will participate in UE exercise program with minimalassistance to prevent deconditioning while in hospital and to max UE ROM/Coordination/strength for ADLs. Outcome: Progressing OT treatment consisted of the following to work and progress towards the above goal(s): OT Evaluation and Treatment Time Self Care/Home Management (ADLs) Time Entry: 15 Therapeutic Activity Time Entry: 8 Treating Therapist: Javed Sanchez OT Additional Details: OT Co-Eval/Treatment Information Co-evaluation/co-treatment performed?: No simultaneous skilled care performed Assisted by during session: DIMENSION WAREHOUSE SUPERVISOR PPE used during patient interaction: gloves Patient location at end of session: bed with head of bed elevated Alarms on at end of session: RN aware Needs in reach. Time In: 0750 Time Out: 08 Total Visit Time: 23 minutes Total Treatment Time (skilled, billable minutes): 23 minutes Upon discontinuation of Acute Care Occupational Therapy Services or patient discharge from the hospital this note represents the current Occupational Therapy Discharge Summary. * Leslie Peterson MD - 05/17/2024 12:34 PM EST Internal Medicine Progress Note Patient: Mari Lopez, 1940, [id number] Physician: Leslie ePterson MD, GM8 service Subjective: NAEO. Per night team, waxing and waning mentation at some points oriented only to name. This morning, pleasant and awake and alert. Reports some swelling and pain in her left hand. Assessment/Plan: Mari Lopez is a 83 y.o. female HTN, hypoparathyroidism, hypothyroidism, BAYRON, gastric bypass (2003), CKD stage 4, HFpEF, and TADEO. Initially admitted to MICU for status epilepticus now transfered to [facility]. Daily Updates: - Delirium overnight, spaced vitals to q4h while awake - MBS today showing aspiration, following up CITY PLANNING TEACHER recommendations - Will discuss with family results of MBS Dysphagia FEES with CITY PLANNING TEACHER 05/13 with some concerns of aspiration possibly related to NGT and ongoing laryngeal edema. - NGT in place - Nepro at goal 35 cc/hr - MBS today showing aspiration - Following up with CITY PLANNING TEACHER final recommendations - Will discuss GOC with family, if NG in line with GOC will require a different facility JOSE on CKD stage 4, non-oliguric JOSE likely due to ischemic and septic ATN due to septic shock requiring DOOR TO DOOR SELLING AGENT this admission. Creatinine stable - Followings Dr. Gilmore (health and fitness instructor) every 6 months Acute blood loss on chronic anemia, stable Macrocytic anemia Acute anemia likely due to DOOR TO DOOR SELLING AGENT in the setting of acute illness and anemia of chronic disease 2/2 CKD - No S/S of active bleeding - iron studies normal - Transfuse goal Hgb > 7 Acute provoked DVT in the left internal jugular vein 2/ CVC placement, line since removed - Eliquis 5mg BID Acute on chronic HFpEF TTE 05/11 with EF 55%, hypokinesis of basal inferior/inferolateral segments. Patient without chest pain currently. EKG non-ischemic. - Renal function and hemodynamics currently preclude HFpEF GDMT - can consider folding back in as she improves - Transition to home PO lasix - atorvastatin 40mg daily Resolved hospital problems: Frequent PVC's bigeminy - resolved Likely secondary to RIJ placement on 05/05 at OSH. Resolved after removal of CVC - Daily chemistry - Goal K >4, Mg > 2, Phos > 2.5 Concern for status epilepticus, stable EEG at OSH with GPDs raising concern for status. MRI Brain w/wo 05/06 with small focus of abnormal signal in the medial right parietal lobe: Artifact vs. postictal changes.CTH without acute finding on05/05. LP 05/05 with opening pressure 23, no positive findings, S/p meningitis coverage with ampicillin, acyclovir, rocephin. No seizures since arrival to [facility]. - Scheduled Vimpat given renal function - Follow up in the Neurology clinic in 2-3 months 10 beat run of VT, resovled - likely in s/o electrolyte abnormalities. Electrolytes corrected without further episodes thus far. - Cont Coreg 6.25 BID - Echo with pEF, hypokinesis of inferior segment, enlarged LA - Plan for outpatient cardiac follow up Hypoxemic Respiratory failure, improved Post extubation stridor Intubated for airway protection at OSH given c/f status and extubated here on 05/08. Completed 24 hours of dexamethasone 6mg Q6 for post extubation stridor - now weaned to RA - CXR 05/08 without acute findings - PRN guaifenesin for cough ordered - Spot diuresis, goal net even to 500mL negative Sepsis, resolved E. Coli UTI Urine positive for E. Coli at OSH. Now s/p several courses of abx - ceftriaxone (05/05-05/10)acyclovir(05/05-05/07), levaquin (-05/05) vancomycin (05/05-05/06) ampicillin (05/05-05/06) - S/p levophed in MICU Chronic problems: HTN - Hold lisinopril given JOSE on CKD Hypothyroidism - Continue home levothyroxine Complexity. Hypocalcemia - Continue to monitor and replete. Obesity, Class 2 Body mass index is 39.44 kg/m . - Follow with PCP for dietary and lifestyle modifications. . Any conditions listed below are present on admission unless otherwise specified. . DVT PPX: eliquis Code Status: Full Code Disposition: Transferred to [facility], will likely go to [facility] when medically cleared Discussed with team and attending on rounds. Leslie Peterson MD 05/17/24 Hospital Course: On 05/01/24 EMS transferred patient to [facility] and then she became non responsiveand hypotensive requiring norepinephrine. EEG noted GPDs and neurology was consulted and reviewed EEG who believed it met criteria status epilepticus. Patient was transferred to [facility] on 05/04 for further neurological medical management. She was admitted to the MICU for critical care management. Per H&P: The patient initially presented to the [facility] ED 05/01/24 with AMS found to havesevere metabolic derangements (pH 7.0, acute renal failure with uremia, hyperkalemia, acidosis). She was intubated, initiated on broad spectrum antibiotics, and placed on vasopressors after inadequate response to 30 cc/kg IVF resuscitation. CTH on admission reportedly normal (reports not available or included in transfer paperwork, [facility] radiology contacted to push images). An infectious workup wasnotable only for E. Coli UTI (blood cultures remained negative). The patient was noted to have possible seizure (right arm twitching) and spot EEG was obtained w/ findings concerning for possible status epilepticus. Per neurology recommendations, the patient received a keppra load and was placed oncEEG. Interval history: LP obtained on 05/05 which was negative, placed on empiric meningitis/encephalitis coverage from 05/05 to 05/07. cEEG discontinued on 05/06 and MRI brain acquired with motion artifact and possible abnormal cortical/subcortical FLAIR signal in right parietal lobe. Started renal replacement 05/06 for renalclearance only and weaned off of vasopressors. Renal replacement sessions complicated by frequent clotting and discontinued given evidence of renal recovery, urine production. MRI cspine acquired ue to concern for lack of extremity movement and bilateral upgoing babinski. Extubated 05/08 with subsequent laryngeal edema, received rac epi and decadron. Ultimately deemed stable for transfer to the floor on 05/09. Objective: Vitals: 05/17/24 1136 BP: 120/55 Pulse: 62 Resp: 16 Temp: 97 F (36.1 C) SpO2: 96% O2 Device: room air (05/17/241135) Flow (L/min): 1 (05/10/24 0000) Gen: chronically ill appearing, obese, appears comfortable, falling asleep during interview HENT: NCAT, EOMI, MMM Cardio: RRR, normal S1/S2, no murmur Resp: no respiratory distress, no wheezes, no increased WOB, expiratory rhonchi present GI: soft, NT, ND, normal BS MSK: no joint swelling or erythema, scattered ecchymoses with evidence of swelling in R hand, chronic skin changes Ext: warm and well-perfused, 1+ pitting edema in BLE, evidence of previous skin graft overlying left knee. Bilateral hands appear swollen but soft. Left hand tenderness to palpation on middle digit. Neuro: alert and oriented Data Review: WBC/Hgb/Hct/Plts: 8.81/7.4/25.0/428 (05/17 47) Na/K+/Phos/Mg/Ca: 141/4.2/3.6/1.9/-- (05/17 47) Bun/Creat/Cl/CO2/Glucose: 61/1.68/106/28/106 (05/17 47-05/17 1137) XR FLUORO MODIFIED BARIUM SWALLOW WITH SPEECH Final Result IMPRESSION: 1. Laryngeal penetration and sensate aspiration of thin and nectar liquids. 2. Laryngeal penetration of honey. 3. Nasogastric tube present. Please see the speech language pathologist report for further details and dietary recommendations. Procedure performed by LIZETH Colvin under the direct supervision of Dr. Trever Prather. I personally viewed and interpreted these images and I have reviewed and approved this report. CARDIOGRAM Final Result VASC DUPLEX VENOUS EXTREMITY UPPER LEFT Final Result MRI SPINE CERVICAL WITH AND WITHOUT CONTRAST Final Result IMPRESSION: Multilevel degenerative spondylosis and degenerative disc disease results in moderate spinal canal stenosis at C5-6 and C6-7 with moderate bilateral neural foraminal stenosis. Visualization severely degraded by motion. Evaluation for spinal cord signal is significantly degraded by motion and Puga artifact. Cannot exclude myelopathic cord signal. No definite myelopathic cord signal is visualized in the cervical spine. Suspected Puga artifact artifact in the upper thoracic spine. CHEST 1 VIEW PORTABLE Final Result IMPRESSION: Patient is rotated to the left. Medial bibasilar opacities appear slightly improved or more likely atelectasis in the setting of improved lung volumes. Mild central bronchial wall cuffing can be seen with early edema or bronchitis. CHEST 1 VIEW PORTABLE Final Result IMPRESSION: No evidence of pneumomediastinum or subcutaneous gas on radiograph. ABDOMEN 1 VIEW PORTABLE Final Result IMPRESSION: Improved ileus without residual dilated small bowel. BRAIN WITH AND WITHOUT CONTRAST Final Result IMPRESSION: Motion artifact on multiple pulse sequences degrades evaluation. Questionable small focus of abnormal cortical/subcortical FLAIR signal in the medial right parietal lobe. This could be artifactual or potentially related to postictal changes. PLAIN FILM FOR NEURO EXAM Final Result IMPRESSION: No radiopaque foreign bodies to preclude MRI. Intrauterine contraceptive device in place. CHEST 1 VIEW PORTABLE Final Result IMPRESSION: 1. Right IJ CVC with tip terminating at the superior cavoatrial junction. No pneumothorax. 2. Interval retraction of the endotracheal tube which now terminates 3.6 cm above the level of the lisa, in good position. 3. Unchanged left basilar volume loss, otherwise lungs are clear. I personally viewed and interpreted these images and I have reviewed and approved this report. HEAD WITHOUT CONTRAST Final Result IMPRESSION: No acute cranial abnormality. ABDOMEN 1 VIEW PORTABLE Final Result IMPRESSION: Enteric tube in stomach. Similar visualized dilated small bowel loops. CHEST 1 VIEW PORTABLE Final Result IMPRESSION: 1. Endotracheal tube at the level the lisa, suggest adjustment. 2. Other support device as described above, in appropriate positions. 3. Left basilar volume loss. No pneumothorax. I, Marva Wallis MD have discussed the critical finding/s of endotracheal tube malposition with PRATIK ENNIS on 05/05/2024 9:59 AM. I personally viewed and interpreted these images and I have reviewed and approved this report. ABDOMEN 1 VIEW PORTABLE Final Result IMPRESSION: 1. Enteric tube projects over the stomach. 2. Mild gaseous distention of small bowel may reflect ileus. Cosigned by Nicol Judge MD at 05/17/2024 3:34 PM EST Associated attestation - Nicol Judge MD - 05/17/2024 3:34 PM EST Attending Addendum (GC): This patient was discussed, examined, and evaluated with the resident physician on the day of the encounter. I have independently confirmed essential components of the medical history and the physical examination. I agree with the above therapeutic plan, with the following addendum: Mari Lopez feels ok this AM, no acute complaints. Hemodynamically stable, exam as noted. Labs reviewed, most notable for stable renal function, stable macrocytic anemia Plan today includes: Overall, clinically stable. She is medically ready for discharge pending result of swallow study, which will help guide final discussion regarding nutrition with family and patient, which will also help determine placement. Patient was seen and discussed with bedside RN today. Problem list includes: Principal Problem: Status epilepticus Active Problems: Anemia of chronic disease Thrombocytopenia (Low Platelets) Acute on chronic heart failure with preserved ejection fraction Acute kidney injury superimposed on CKD Acute deep vein thrombosis (DVT) of non-extremity vein Severe obesity (BMI 35.0-39.9) with comorbidity Essential hypertension Nicol Judge MD, FACP Plate Sensitizer of Clinical Medicine General Internal Medicine * Javed Sanchez OT - 05/17/2024 10:25 AM EST Occupational Therapy Attempt Note 05/17/2024 OT Therapy Completed: Attempted Attempted Reason: Patient is unavailable due to test/procedure, therapist will re-attempt at a later time. Javed Sanchez OT Time In: 1025 Time Out: 1025 Total Visit Time: 0 minutes Total Treatment Time (skilled, billable minutes): 0 minutes * Josefina Bradley RN - 05/17/2024 8:56 AM EST Progress Note Chart reviewed Dietary plan continues to develop Plan for MBS with CITY PLANNING TEACHER 05/17 [facility] will not accept with DHT, would require PEG for enteral nutrition. Discharge pending medical readiness Will continue to follow for discharge planning and care coordination. Josefina Manning RN, BSN Manager Behavior Available by Secure Chat or [employer] * Leslie Peterson MD - 05/16/2024 4:03 PM EST Internal Medicine Progress Note Patient: Mari Lopez, 1940, [id number] Physician: Leslie Peterson MD, GM8 service Subjective: NAEO. This afternoon seen after MBS. Feels well, and improved from yesterday. Tolerated the MBS well, feels that nothing went down the wrong pipe. Has not ambulated today, cannot recall the last time she ambulated. Has no fevers, chills, SOB, cough, body aches. Assessment/Plan: Mari Lopez is a 83 y.o. female HTN, hypoparathyroidism, hypothyroidism, BAYRON, gastric bypass (2003), CKD stage 4, HFpEF, and TADEO. Initially admitted to MICU for status epilepticus now transfered to [facility]. Daily Updates: - Feels well overall - Continues to have good UOP, chem grossly stable - Continue IV diuresis today - Follow up results of MBS today - Dispo to [facility] facility in [place] once medically stable -- facility may not accept DHT if needs toremain in place JOSE on CKD stage 4, non-oliguric JOSE likely due to ischemic and septic ATN due to septic shock. Improving renal function. Required renal replacement during MICU stay for renal clearance. Now making good urine with prn lasix. Serum creatinine 1.5-1.6 for a recent baseline. HD 05/06 for clearance, 5 hours PIRRT in the morning of 05/07/24 and stopped d/t filter clot. HD line since removed. - Followings Dr. Gilmore (health and fitness instructor) every 6 months - Nephrology consulted, appreciate recs regarding ongoing diuresis: -- Resume IV Lasix 20mg daily 05/13 given stable chemistry - Continue FWF 100cc q4h 05/14 given improved hypernatremia - LUE dupplex negative for DVT 05/11 - Daily chem Elevated temperature Leukocytosis, stable Increasing WBC 05/14 now stable. Patient without localizing symptoms, reports sore throat is improving. Denies significant cough, SOB, abdominal pain. Tmax 100.8F in AM 05/15 although patient reports sheis feeling very well. Denies any new symptoms and feels her sore throat has improved. Denies abdominal pain, SOB. - Flu/COVID negative 05/15 - CTM temperature - if fevers again 05/15 low threshold to re-culture with Bcx, Ucx, obtain CXR - Trend CBC Sore throat, improving Complaining of mild sore throat starting 05/11. Likely multifactorial in setting of recent intubationin addition to NGT. No significant congestion, fevers. Would consider viral URI as well. Will treatsymptomatically and can consider viral swabs if worsening or becomes febrile. - Chloraseptic spray PRN Ileus - resolved 05/05 KUB mild bowel gas distention of small bowel, now having BM - tolerating tube feeds at goal - FEES with CITY PLANNING TEACHER 05/13 with some concerns of aspiration possibly related to NGT and ongoing laryngeal edema: -- Transition NG to DHT -- MBS on 05/16 -- Consider steroids pending improvement with DHT iso possible ongoing laryngeal edema /2 post-intubation inflammation - Will advance diet as tolerable if NGT can be removed - follow up final read on MBS Concern for status epilepticus, stable EEG at OSH with GPDs raising concern for status. MRI Brain w/wo 05/06 with small focus of abnormal signal in the medial right parietal lobe: Artifact vs. postictal changes.CTH without acute finding on05/05. LP 05/05 with opening pressure 23, no positive findings, S/p meningitis coverage with ampicillin, acyclovir, rocephin. No seizures since arrival to [facility]. - Neurology consulted and following - Scheduled Vimpat given renal function - Follow up in the Neurology clinic in 2-3 months 10 beat run of VT, resovled - likely in s/o electrolyte abnormalities. Electrolytes corrected without further episodes thus far. - Cont Coreg 6.25 BID - Echo with pEF, hypokinesis of inferior segment, enlarged LA - Plan for outpatient cardiac follow up Hypoxemic Respiratory failure, improved Post extubation stridor Intubated for airway protection at OSH given c/f status and extubated here on 05/08. Completed 24 hours of dexamethasone 6mg Q6 for post extubation stridor - now weaned to RA - CXR 05/08 without acute findings - PRN guaifenesin for cough ordered - Spot diuresis, goal net even to 500mL negative Acute blood loss on chronic anemia, stable Macrocytic anemia Acute anemia likely due to DOOR TO DOOR SELLING AGENT in the setting of acute illness and anemia of chronic disease /2 CKD - No S/S of active bleeding - iron studies normal - Transfuse goal Hgb > 7 Sepsis, improving E. Coli UTI Urine positive for E. Coli at OSH. Now s/p several courses of abx - ceftriaxone (05/05-05/10)acyclovir(05/05-05/07), levaquin (-05/05) vancomycin (05/05-05/06) ampicillin (05/05-05/06) - S/p levophed in MICU - Sputum, blood, and CSF culture 05/05 with no acute findings, santillan cultured again on 05/08 given fever - 05/09 Bcx NGTD - Cdiff PCR negative - 05/08 LRCX light growth common oropharyngeal microbes - daily CBC Acute provoked DVT in the left internal jugular vein 05/08 CVC placement, line since removed - transitioned heparin gtt to eliquis on 05/10 Acute on chronic HFpEF TTE 05/11 with EF 55%, hypokinesis of basal inferior/inferolateral segments. Patient without chest pain currently. EKG non-ischemic. - Renal function and hemodynamics currently preclude HFpEF GDMT - can consider folding back in as she improves - spot dose lasix for goal even to -500mL - lipid panel with LDL <70 - Will initiate atorvastatin 40mg daily for secondary prevention Resolved hospital problems: Frequent PVC's bigeminy - resolved Likely secondary to RIJ placement on 05/05 at OSH. Resolved after removal of CVC - Daily chemistry - Goal K >4, Mg > 2, Phos > 2.5 Chronic problems: HTN - Hold lisinopril given JOSE on CKD Hypothyroidism - Continue home levothyroxine Complexity. Hypocalcemia - Continue to monitor and replete. Obesity, Class 2 Body mass index is 39.44 kg/m . - Follow with PCP for dietary and lifestyle modifications. . Any conditions listed below are present on admission unless otherwise specified. . DVT PPX: eliquis Code Status: Full Code Disposition: Transferred to [facility], will likely go to [facility] when medically cleared Discussed with team and attending on rounds. Leslie Peterson MD 05/16/24 Hospital Course: On 05/01/24 EMS transferred patient to [facility] and then she became non responsiveand hypotensive requiring norepinephrine. EEG noted GPDs and neurology was consulted and reviewed EEG who believed it met criteria status epilepticus. Patient was transferred to [facility] on 05/04 for further neurological medical management. She was admitted to the MICU for critical care management. Per H&P: The patient initially presented to the [facility] ED 05/01/24 with AMS found to havesevere metabolic derangements (pH 7.0, acute renal failure with uremia, hyperkalemia, acidosis). She was intubated, initiated on broad spectrum antibiotics, and placed on vasopressors after inadequate response to 30 cc/kg IVF resuscitation. CTH on admission reportedly normal (reports not available or included in transfer paperwork, OSH radiology contacted to push images). An infectious workup wasnotable only for E. Coli UTI (blood cultures remained negative). The patient was noted to have possible seizure (right arm twitching) and spot EEG was obtained w/ findings concerning for possible status epilepticus. Per neurology recommendations, the patient received a keppra load and was placed oncEEG. Interval history: LP obtained on 05/05 which was negative, placed on empiric meningitis/encephalitis coverage from 05/05 to 05/07. cEEG discontinued on 05/06 and MRI brain acquired with motion artifact and possible abnormal cortical/subcortical FLAIR signal in right parietal lobe. Started renal replacement 05/06 for renalclearance only and weaned off of vasopressors. Renal replacement sessions complicated by frequent clotting and discontinued given evidence of renal recovery, urine production. MRI cspine acquired ue to concern for lack of extremity movement and bilateral upgoing babinski. Extubated 05/08 with subsequent laryngeal edema, received rac epi and decadron. Ultimately deemed stable for transfer to the floor on 05/09. Objective: Vitals: 05/16/24 1515 BP: 135/63 Pulse: 76 Resp: 16 Temp: 98.5 F (36.9 C) SpO2: 95% O2 Device: room air (05/16/245) Flow (L/min): 1 (05/10/24 0000) Gen: chronically ill appearing, obese, appears comfortable, falling asleep during interview HENT: NCAT, EOMI, MMM Cardio: RRR, normal S1/S2, no murmur Resp: no respiratory distress, no wheezes, no increased WOB, expiratory rhonchi present GI: soft, NT, ND, normal BS MSK: no joint swelling or erythema, scattered ecchymoses with evidence of swelling in R hand, chronic skin changes Ext: warm and well-perfused, 1+ pitting edema in BLE, evidence of previous skin graft overlying left knee. Bilateral hands appear swollen but soft. Left lower extremity tenderness to palpation and erythema. Picture in chart. Neuro: alert and oriented Data Review: WBC/Hgb/Hct/Plts: 9.66/7.8/26.1/444 (05/16 451) Na/K+/Phos/Mg/Ca: 142/4.3/3.3/1.8/-- (05/16 451) Bun/Creat/Cl/CO2/Glucose: 60/1.69/105/28/101 (05/16 451-05/16 121) ECHOCARDIOGRAM Final Result VASC DUPLEX VENOUS EXTREMITY UPPER LEFT Final Result MRI SPINE CERVICAL WITH AND WITHOUT CONTRAST Final Result IMPRESSION: Multilevel degenerative spondylosis and degenerative disc disease results in moderate spinal canal stenosis at C5-6 and C6-7 with moderate bilateral neural foraminal stenosis. Visualization severely degraded by motion. Evaluation for spinal cord signal is significantly degraded by motion and Puga artifact. Cannot exclude myelopathic cord signal. No definite myelopathic cord signal is visualized in the cervical spine. Suspected Puga artifact artifact in the upper thoracic spine. CHEST 1 VIEW PORTABLE Final Result IMPRESSION: Patient is rotated to the left. Medial bibasilar opacities appear slightly improved or more likely atelectasis in the setting of improved lung volumes. Mild central bronchial wall cuffing can be seen with early edema or bronchitis. CHEST 1 VIEW PORTABLE Final Result IMPRESSION: No evidence of pneumomediastinum or subcutaneous gas on radiograph. ABDOMEN 1 VIEW PORTABLE Final Result IMPRESSION: Improved ileus without residual dilated small bowel. BRAIN WITH AND WITHOUT CONTRAST Final Result IMPRESSION: Motion artifact on multiple pulse sequences degrades evaluation. Questionable small focus of abnormal cortical/subcortical FLAIR signal in the medial right parietal lobe. This could be artifactual or potentially related to postictal changes. PLAIN FILM FOR NEURO EXAM Final Result IMPRESSION: No radiopaque foreign bodies to preclude MRI. Intrauterine contraceptive device in place. CHEST 1 VIEW PORTABLE Final Result IMPRESSION: 1. Right IJ CVC with tip terminating at the superior cavoatrial junction. No pneumothorax. 2. Interval retraction of the endotracheal tube which now terminates 3.6 cm above the level of the lisa, in good position. 3. Unchanged left basilar volume loss, otherwise lungs are clear. I personally viewed and interpreted these images and I have reviewed and approved this report. HEAD WITHOUT CONTRAST Final Result IMPRESSION: No acute cranial abnormality. ABDOMEN 1 VIEW PORTABLE Final Result IMPRESSION: Enteric tube in stomach. Similar visualized dilated small bowel loops. CHEST 1 VIEW PORTABLE Final Result IMPRESSION: 1. Endotracheal tube at the level the lisa, suggest adjustment. 2. Other support device as described above, in appropriate positions. 3. Left basilar volume loss. No pneumothorax. I, Marva Wallis MD have discussed the critical finding/s of endotracheal tube malposition with PRATIK Ortiz RAYMON on 05/05/2024 9:59 AM. I personally viewed and interpreted these images and I have reviewed and approved this report. ABDOMEN 1 VIEW PORTABLE Final Result IMPRESSION: 1. Enteric tube projects over the stomach. 2. Mild gaseous distention of small bowel may reflect ileus. FLUORO MODIFIED BARIUM SWALLOW WITH SPEECH (Results Pending) Cosigned by Nicol Judge MD at 05/16/2024 4:27 PM EST Associated attestation - Nicol Judge MD - 05/16/2024 4:27 PM EST Attending Addendum (GC): This patient was discussed, examined, and evaluated with the resident physician on the day of the encounter. I have independently confirmed essential components of the medical history and the physical examination. I agree with the above therapeutic plan, with the following addendum: Mari Lopez feels ok this AM, no acute complaints. Hemodynamically stable, exam as noted. Labs reviewed, most notable for stable renal function, stable macrocytic anemia Plan today includes: Overall, clinically stable. She is medically ready for discharge pending result of swallow study, which will help guide final discussion regarding nutrition. Patient was seen and discussed with bedside RN today. Problem list includes: Principal Problem: Status epilepticus Active Problems: Anemia of chronic disease Thrombocytopenia (Low Platelets) Acute on chronic heart failure with preserved ejection fraction Acute kidney injury superimposed on CKD Acute deep vein thrombosis (DVT) of non-extremity vein Severe obesity (BMI 35.0-39.9) with comorbidity Essential hypertension Nicol Judge MD, FACP Plate Sensitizer of Clinical Medicine General Internal Medicine * AZAEL Blas - 05/16/2024 11:00 AM EST Speech Language Pathology Attempt Note 05/17/2024 Attempted to complete MBS in fluoro suite. Unable to complete study d/t patient positioning/bodyhabitus. Plan for MBS tomorrow in [facility]. AZAEL Blas Time In: 1100 Time Out: 1115 Total Visit Time: 15 minutes Total Treatment Time (skilled, billable minutes): 0 minutes * Javed Sanchez OT - 05/16/2024 10:58 AM EST Occupational Therapy Attempt Note 05/16/2024 OT Therapy Completed: Attempted Attempted Reason: Other (see comments) (Pt currently is off the unit), therapist will re-attempt asable for pt safety. Javed Sanchez OT Time In: 1058 Time Out: 1058 Total Visit Time: 0 minutes Total Treatment Time (skilled, billable minutes): 0 minutes * Nazanin Kaye RD - 05/16/2024 8:34 AM EST NUTRITION FOLLOW UP Nutrition Recommendations and Plan of Care: 1. Diet advancement pending MBS/per CITY PLANNING TEACHER 2. Continue current enteral nutrition regimen: Nepro 1.8 @ 35 mL/hr- provides 840mL volume, 1512kcal, 68g pro, 134g CHO, 611mL free H2O - increase to 1pkt Prosource TF BID - provides additional 80kcal, 22g pro - at minimum recommend 30mL flushes q4 hrs to maintain tube patency 3. If watermelon harvesting supervisor enteral nutrition is anticipated, recommend transitioning to a standard enteral formula. Goal of Jevity 1.5 @ 45 mL/hr. - continue 1pkt Prosource TF BID 4. RD will continue to follow per policy and assess more frequently if needed ___ Past History: Reviewed charted notes. Mari Lopez is a 83 y.o. female who is known to clinical nutrition. PMH of HTN, hypoparathyroidism, hypothyroidism, BAYRON, gastric bypass (2003), CKD stage 4, HFpEF & TADEO. Initially admitted to MICU for status epilepticus, now transferred to the floor. Initially presented to [facility] ED 05/01 with AMS. Found to have severe metabolic derangements. Intubated & initiated on broad spectrum antibiotics. CTH on admit reportedly normal. Infectious workup notable only for E. Coli UTI. Noted to have possible seizure (R arm twitching) & spot EEG was obtained w/findings concerning for possible status epilepticus. LP 05/05 negative. Started renal replacement 05/06. MRI brain 05/06 w/acquired with motion artifact & possible abnormal cortical/subcortical FLAIR signal in R parietal lobe. MRI cspine acquired 2/2 d/t concern for lack of extremity movement & bilateral upgoing babinski. Extubated 05/08 with subsequent laryngeal edema. Pertinent Procedures: FEES 05/13: recommended NPO Nutrition Evaluation: Patient evaluated for nutrition follow up. Plan for MBS today. Visited patient. Obtained limited wt/intake hx, as this was previously unable to be obtained. Patient did not know UBW though reported wt gain ENERGY ASSISTANT. Denied any changes in appetite/intake. Weight records reflect patient's reported w/wt gain observed since early 11/2023. NFPE not performed though no muscle/fat depletion observed. No malnutrition identified. Enteral feeds running at goal at time of visit today. Patient denied complaints of enteral intolerance. Nepro 1.8 at a goal rate of 35 mL/hr + 1pkt Prosource TF daily provides 840mL volume, 1552kcal,79g pro, 134g CHO, 611mL free H2O. - x7 day average: 675 mL/day, ~80% ordered goal EN Overall patient received an average of 84% minimum kcal needs & 73% minimum pro needs when accounting for Prosource TF administration - meeting nutrition needs. K+ & phos remain WNL. D/t pending MBS/possible diet advancement, favor continuing current enteral nutrition regimen at this time. Should patient fail MBS/continues to require enteral nutrition for nutrition support, recommend transitioning to a standard enteral formula. Diet Order: DIET NPO AND TUBE FEEDING with meds Enteral Nutrition: Nepro 1.8 @ 35 mL/hr + 1pkt Prosource TF daily + 100mL H2O q4 hrs Anthropometrics: Admit Height: 154.9 cm (5' 1) Admit Weight: 116.3 kg (256 lb 6.3 oz) (05/04)- ?accuracy based on trend Admit BMI: 48.5 kg/m IBW: 60kg for a BMI of 25; % IBW: 194% Weight History: 03/16/24 104.8kg 01/28/24 103.9kg 12/04/23 101.2kg 11/09/23 99kg 07/22/23 101.2kg 04/16/23 98.9kg 04/15/23 98.9kg Weights this admit: 05/16 107.5kg 05/14 108.7kg 05/11 108.9kg 05/09 114.2kg 05/07 113.8kg 05/05 113.3kg Weight Change: weight fluctuations noted x1 week - likely r/t fluid Vitals: Tmax: 37.2 BP: 132/62 Pulse (Heart Rate): 73 Oxygen Therapy: room air I/Os: +1.2L net since admit with 4 of the last 7 days being [-] Meds reviewed: 20mg Lasix, Synthroid Labs reviewed: BUN 60, Creat 1.69, osmolality 315, glucose 120, POC glucose 96- 105 mg/dL (x24 hrs) Physical Findings: NFPE: not performed Respiratory: n/a GI: NGT (05/05); All Quadrants Bowel Sounds: return to WDL with Last Bowel Movement: 05/14/24 Skin Integrity: edema associated dermatitis R abd Edema: 05/15- +2 generalized edema, +2 edema R&L leg, R&L arm Estimated Nutrition Needs: Weight Used: IBW for BMI of 25, 60kg Estimated Energy Requirements (kcal/day): 1493-8942 kcal/day (25-30 kcal/kg) Estimated Protein Requirements (g/day): 90-120 g pro/day (1.5-2 g/kg) Estimated Fluid Requirements: 1 mL/kcal or per primary team discretion Assessment: Pt is at nutritional risk r/t necessity for enteral nutrition for nutrition support Malnutrition Diagnosis: Does the patient meet criteria for malnutrition: No *Based on [employer] and [employer]EN Indicators to Diagnose Malnutrition (AAIM) criteria (2012) Nazanin Kaye, MPH, RD, LD, [facility] Pager #[phone] * Heladio Prather MD - 05/15/2024 11:49 AM EST Internal Medicine Progress Note Patient: Mari Lopez, 1940, [id number] Physician: Heladio Prather MD, PGY2, GM8 service Subjective: Pt seen and evaluated this morning at bedside. She reports that she tolerated ice chips well this morning. Complaining of sore throat but reports topical spray is helping. Eager to try to get NGT removed, but understands she has been aspirating with swallows. Assessment/Plan: Mari Lopez is a 83 y.o. female HTN, hypoparathyroidism, hypothyroidism, BAYRON, gastric bypass (2003), CKD stage 4, HFpEF, and TADEO. Initially admitted to MICU for status epilepticus now transfered to [facility]. Daily Updates: - Mildly elevated temperature, Tmax 100.8F this morning - Flu/COVID negative - WBC stable, patient without acute symptoms, feeling well overall - Continues to have good UOP, chem grossly stable - Continue IV diuresis today - Per CITY PLANNING TEACHER - plan for NG to be switched for DHT, MBS on Thursday, 05/16 - Dispo to [facility] facility in [place] once medically stable -- facility may not accept DHT if needs toremain in place JOSE on CKD stage 4, non-oliguric JOSE likely due to ischemic and septic ATN due to septic shock. Improving renal function. Required renal replacement during MICU stay for renal clearance. Now making good urine with prn lasix. Serum creatinine 1.5-1.6 for a recent baseline. HD 05/06 for clearance, 5 hours PIRRT in the morning of 05/07/24 and stopped d/t filter clot. HD line since removed. - Followings Dr. Gilmore (health and fitness instructor) every 6 months - Nephrology consulted, appreciate recs regarding ongoing diuresis: -- Resume IV Lasix 20mg daily 05/13 given stable chemistry - Decrease FWF to 100cc q4h 05/14 given improved hypernatremia - LUE dupplex negative for DVT 05/11 - Daily chem Elevated temperature Leukocytosis, stable Increasing WBC 05/14 now stable. Patient without localizing symptoms, reports sore throat is improving. Denies significant cough, SOB, abdominal pain. Tmax 100.8F in AM 05/15 although patient reports sheis feeling very well. Denies any new symptoms and feels her sore throat has improved. Denies abdominal pain, SOB. - Flu/COVID negative 05/15 - CTM temperature - if fevers again 05/15 low threshold to re-culture with Bcx, Ucx, obtain CXR - Trend CBC Sore throat, improving Complaining of mild sore throat starting 05/11. Likely multifactorial in setting of recent intubationin addition to NGT. No significant congestion, fevers. Would consider viral URI as well. Will treatsymptomatically and can consider viral swabs if worsening or becomes febrile. - Chloraseptic spray PRN Ileus - resolved 05/05 KUB mild bowel gas distention of small bowel, now having BM - tolerating tube feeds at goal - FEES with CITY PLANNING TEACHER 05/13 with some concerns of aspiration possibly related to NGT and ongoing laryngeal edema: -- Transition NG to DHT -- MBS on 05/16 -- Consider steroids pending improvement with DHT iso possible ongoing laryngeal edema 05/08 post-intubation inflammation - Will advance diet as tolerable if NGT can be removed Concern for status epilepticus, stable EEG at OSH with GPDs raising concern for status. MRI Brain w/wo 05/06 with small focus of abnormal signal in the medial right parietal lobe: Artifact vs. postictal changes.CTH without acute finding on05/05. LP 05/05 with opening pressure 23, no positive findings, S/p meningitis coverage with ampicillin, acyclovir, rocephin. No seizures since arrival to [facility]. - Neurology consulted and following - Scheduled Vimpat given renal function - Follow up in the Neurology clinic in 2-3 months 10 beat run of VT, resovled - likely in s/o electrolyte abnormalities. Electrolytes corrected without further episodes thus far. - Cont Coreg 6.25 BID - Echo with pEF, hypokinesis of inferior segment, enlarged LA - Plan for outpatient cardiac follow up Hypoxemic Respiratory failure, improved Post extubation stridor Intubated for airway protection at OSH given c/f status and extubated here on 05/08. Completed 24 hours of dexamethasone 6mg Q6 for post extubation stridor - now weaned to RA - CXR 05/08 without acute findings - PRN guaifenesin for cough ordered - Spot diuresis, goal net even to 500mL negative Acute blood loss on chronic anemia, stable Macrocytic anemia Acute anemia likely due to DOOR TO DOOR SELLING AGENT in the setting of acute illness and anemia of chronic disease /2 CKD - No S/S of active bleeding - iron studies normal - Transfuse goal Hgb > 7 Sepsis, improving E. Coli UTI Urine positive for E. Coli at OSH. Now s/p several courses of abx - ceftriaxone (05/05-05/10)acyclovir(05/05-05/07), levaquin (-05/05) vancomycin (05/05-05/06) ampicillin (05/05-05/06) - S/p levophed in MICU - Sputum, blood, and CSF culture 05/05 with no acute findings, santillan cultured again on 05/08 given fever - 05/09 Bcx NGTD - Cdiff PCR negative - 05/08 LRCX light growth common oropharyngeal microbes - daily CBC Acute provoked DVT in the left internal jugular vein 05/08 CVC placement, line since removed - transitioned heparin gtt to eliquis on 05/10 Acute on chronic HFpEF TTE 05/11 with EF 55%, hypokinesis of basal inferior/inferolateral segments. Patient without chest pain currently. EKG non-ischemic. - Renal function and hemodynamics currently preclude HFpEF GDMT - can consider folding back in as she improves - spot dose lasix for goal even to -500mL - lipid panel with LDL <70 - Will initiate atorvastatin 40mg daily for secondary prevention Resolved hospital problems: Frequent PVC's bigeminy - resolved Likely secondary to RIJ placement on 05/05 at OSH. Resolved after removal of CVC - Daily chemistry - Goal K >4, Mg > 2, Phos > 2.5 Chronic problems: HTN - Hold lisinopril given JOSE on CKD Hypothyroidism - Continue home levothyroxine Complexity. Hypocalcemia - Continue to monitor and replete. Obesity, Class 2 Body mass index is 39.22 kg/m . - Follow with PCP for dietary and lifestyle modifications. . Any conditions listed below are present on admission unless otherwise specified. . DVT PPX: eliquis Code Status: Full Code Disposition: Transferred to [facility], will likely go to [facility] when medically cleared Discussed with team and attending on rounds. Heladio Prather MD 05/15/24 Hospital Course: On 05/01/24 EMS transferred patient to [facility] and then she became non responsiveand hypotensive requiring norepinephrine. EEG noted GPDs and neurology was consulted and reviewed EEG who believed it met criteria status epilepticus. Patient was transferred to [facility] on 05/04 for further neurological medical management. She was admitted to the MICU for critical care management. Per H&P: The patient initially presented to the [facility] ED 05/01/24 with AMS found to havesevere metabolic derangements (pH 7.0, acute renal failure with uremia, hyperkalemia, acidosis). She was intubated, initiated on broad spectrum antibiotics, and placed on vasopressors after inadequate response to 30 cc/kg IVF resuscitation. CTH on admission reportedly normal (reports not available or included in transfer paperwork, [facility] radiology contacted to push images). An infectious workup wasnotable only for E. Coli UTI (blood cultures remained negative). The patient was noted to have possible seizure (right arm twitching) and spot EEG was obtained w/ findings concerning for possible status epilepticus. Per neurology recommendations, the patient received a keppra load and was placed oncEEG. Interval history: LP obtained on 05/05 which was negative, placed on empiric meningitis/encephalitis coverage from 05/05 to 05/07. cEEG discontinued on 05/06 and MRI brain acquired with motion artifact and possible abnormal cortical/subcortical FLAIR signal in right parietal lobe. Started renal replacement 05/06 for renalclearance only and weaned off of vasopressors. Renal replacement sessions complicated by frequent clotting and discontinued given evidence of renal recovery, urine production. MRI cspine acquired 2ue to concern for lack of extremity movement and bilateral upgoing babinski. Extubated 2/2 with subsequent laryngeal edema, received rac epi and decadron. Ultimately deemed stable for transfer to the floor on 05/09. Objective: Vitals: 05/15/24 1057 BP: 143/63 Pulse: 73 Resp: 16 Temp: 97.9 F (36.6 C) SpO2: 93% O2 Device: room air (05/15/24 1057) Flow (L/min): 1 (05/10/24 0000) Gen: chronically ill appearing, obese, appears comfortable HENT: NCAT, EOMI, MMM Cardio: RRR, normal S1/S2, no murmur Resp: no respiratory distress, no wheezes, no increased WOB, expiratory rhonchi present GI: soft, NT, ND, normal BS MSK: no joint swelling or erythema, scattered ecchymoses with evidence of swelling in R hand, chronic skin changes Ext: warm and well-perfused, 1+ pitting edema in BLE, evidence of previous skin graft overlying left knee. Bilateral hands appear swollen but soft. Neuro: alert and oriented Data Review: WBC/Hgb/Hct/Plts: 12.44/7.6/25.7/450 (05/15 417) Na/K+/Phos/Mg/Ca: 140/4.2/3.9/2.0/-- (05/15 417) Bun/Creat/Cl/CO2/Glucose: 63/1.75/104/28/105 (05/15 417-05/15 607) ECHOCARDIOGRAM Final Result VASC DUPLEX VENOUS EXTREMITY UPPER LEFT Final Result MRI SPINE CERVICAL WITH AND WITHOUT CONTRAST Final Result IMPRESSION: Multilevel degenerative spondylosis and degenerative disc disease results in moderate spinal canal stenosis at C5-6 and C6-7 with moderate bilateral neural foraminal stenosis. Visualization severely degraded by motion. Evaluation for spinal cord signal is significantly degraded by motion and Puga artifact. Cannot exclude myelopathic cord signal. No definite myelopathic cord signal is visualized in the cervical spine. Suspected Puga artifact artifact in the upper thoracic spine. CHEST 1 VIEW PORTABLE Final Result IMPRESSION: Patient is rotated to the left. Medial bibasilar opacities appear slightly improved or more likely atelectasis in the setting of improved lung volumes. Mild central bronchial wall cuffing can be seen with early edema or bronchitis. CHEST 1 VIEW PORTABLE Final Result IMPRESSION: No evidence of pneumomediastinum or subcutaneous gas on radiograph. ABDOMEN 1 VIEW PORTABLE Final Result IMPRESSION: Improved ileus without residual dilated small bowel. BRAIN WITH AND WITHOUT CONTRAST Final Result IMPRESSION: Motion artifact on multiple pulse sequences degrades evaluation. Questionable small focus of abnormal cortical/subcortical FLAIR signal in the medial right parietal lobe. This could be artifactual or potentially related to postictal changes. PLAIN FILM FOR NEURO EXAM Final Result IMPRESSION: No radiopaque foreign bodies to preclude MRI. Intrauterine contraceptive device in place. CHEST 1 VIEW PORTABLE Final Result IMPRESSION: 1. Right IJ CVC with tip terminating at the superior cavoatrial junction. No pneumothorax. 2. Interval retraction of the endotracheal tube which now terminates 3.6 cm above the level of the lisa, in good position. 3. Unchanged left basilar volume loss, otherwise lungs are clear. I personally viewed and interpreted these images and I have reviewed and approved this report. HEAD WITHOUT CONTRAST Final Result IMPRESSION: No acute cranial abnormality. ABDOMEN 1 VIEW PORTABLE Final Result IMPRESSION: Enteric tube in stomach. Similar visualized dilated small bowel loops. CHEST 1 VIEW PORTABLE Final Result IMPRESSION: 1. Endotracheal tube at the level the lisa, suggest adjustment. 2. Other support device as described above, in appropriate positions. 3. Left basilar volume loss. No pneumothorax. I, Marva Wallis MD have discussed the critical finding/s of endotracheal tube malposition with PRATIK Ortiz ENNIS on 05/05/2024 9:59 AM. I personally viewed and interpreted these images and I have reviewed and approved this report. ABDOMEN 1 VIEW PORTABLE Final Result IMPRESSION: 1. Enteric tube projects over the stomach. 2. Mild gaseous distention of small bowel may reflect ileus. FLUORO MODIFIED BARIUM SWALLOW WITH SPEECH (Results Pending) Cosigned by Kevon Lyon MD at 05/15/2024 12:18 PM EST Associated attestation - Kevon Lyon MD - 05/15/2024 12:18 PM EST Attending Addendum: This patient was discussed, examined, and evaluated with the resident physician on 05/15/2024. I haveindependently confirmed essential components of the medical history and the physical examination. Iagree with the above therapeutic plan with the following additions: Ms. Lopez is an 83-year-old female with a past medical history of CKD stage 4, neurogenic bladder, obesity status post gastric bypass, COPD, HFpEF, chronic lymphedema, and TADEO who was transferred herewith altered mental status found to be in status epilepticus. This was complicated by acute respiratory failure requiring intubation, sepsis from an E coli UTI, provoked DVT, and JOSE requiring DOOR TO DOOR SELLING AGENT who was transitioned to the floor. The majority of her issues have resolved, however she still has NG tube in place and is being followed by speech therapy for laryngeal edema/dysphagia. She underwent FEES 05/13 with recommendation to change to a Dobbhoff tube and repeat MBS 05/16. She continues to feel well and reports that her strength is improving and she has no symptoms currently. She did endorse asore throat and cough yesterday and was found to have a fever of 100.8 this morning so we swabbed her for COVID and flu which were both negative. Her blood cultures show no growth to date, last collected 05/09. Her white blood cell count is elevated at 12.44 but has been stable for the last few days.The etiology of her fever is unclear, considering aspiration pneumonitis vs. pneumonia from PO trials or NG tube reflux, but given how well she feels and because she is a hard stick, I will hold off on re-culturing her now. Should she have another episode of fever, we will get blood cultures, urine culture, and chest x-ray. We are continuing to diurese her with Lasix 20 mg IV with a goal of net-500 cc daily. ASSESSMENT: Principal Problem: Status epilepticus Active Problems: Anemia (Low HGB) Renal disease (High Serum Creatinine) Thrombocytopenia (Low Platelets) (HFpEF) heart failure with preserved ejection fraction Complexity. Hypocalcemia - Continue to monitor and replete. Obesity, Class 2 Body mass index is 39.22 kg/m . - Follow with PCP for dietary and lifestyle modifications. . Any conditions listed below are present on admission unless otherwise specified. .Chronic Renal Failure , CKD Stage: 4 (05/15/2024: eGFR, CKD-EPI, Female 29) - continue to diurese Chronic Diastolic Heart Failure - HFpEF, will resume GDMT when hemodynamics allow Kevon Lyon MD Agent Based Modeler, Clinical Division of General Internal Medicine * Marce Henry L[place]IS - 05/14/2024 11:40 AM EST Placement Plan Expected Discharge Date: 05/17/2024 Referred Level of Care: I[facility] Barriers: med readiness; ability for [facility] to admit w/ DHT; out-of-town transportation Current Referrals and Status 1. [facility] - accepted/reserved Per MD, current plan is DHT for pt as well as a barium swallow test on Thursday (05/16) although team is hoping pt will be able to have the DHT removed prior to discharge. SW updated IPR. IPR has statedtypically they do not admit patients on a DHT but will a PEG as DHT's interfere with the therapy. IPR admissions stated they will discuss with their medical staff manager on Thursday and let SW know if patient is able to admit to their facility with a DHT. SW updated MD. SW will complete handoff for the floor/cover CM/SW for continuity of care. [facility] [place], [place]-[facility] Medical Social Work Please note that I am a float SW and may not be covering the same unit each day. Please reach out to the floor/unit SW for additional needs/concerns. Main CM/SW Office (Thursday-Thursday, 8:00am-4:30pm): [phone] For any other coverage needs, please consult [employer] under Care Management. * Heladio Prather MD - 05/14/2024 10:39 AM EST Internal Medicine Progress Note Patient: Mari Lopez, 1940, [id number] Physician: Heladio Prather MD, PGY2, GM8 service Subjective: Pt seen and evaluated this morning at bedside. She reports that she tolerated ice chips well this morning. Complaining of sore throat but reports topical spray is helping. Eager to try to get NGT removed, but understands she has been aspirating with swallows. Assessment/Plan: Mari Lopez is a 83 y.o. female HTN, hypoparathyroidism, hypothyroidism, BAYRON, gastric bypass (2003), CKD stage 4, HFpEF, and TADEO. Initially admitted to MICU for status epilepticus now transfered to [facility]. Daily Updates: - Net positive 1.7L over last 24 hours - Chemistry largely stable, improved hypernatremia - Will decrease FWF to 100cc q4h - Plan for IV Lasix 20mg x1 today, monitor I/O - Per CITY PLANNING TEACHER - plan for NG to be switched for DHT, MBS on Thursday, 05/16 - Dispo to [facility] facility in [place] once medically stable -- facility may not accept DHT if needs toremain in place JOSE on CKD stage 4, non-oliguric JOSE likely due to ischemic and septic ATN due to septic shock. Improving renal function. Required renal replacement during MICU stay for renal clearance. Now making good urine with prn lasix.. Serum creatinine 1.5-1.6 for a recent baseline. HD 05/06 for clearance, 5 hours PIRRT in the morning of 05/07/24 and stopped d/t filter clot. HD line since removed. - Followings Dr. Gilmore (health and fitness instructor) every 6 months - Nephrology consulted, appreciate recs regarding ongoing diuresis: -- Resume Lasix 20mg daily 05/13 given stable chemistry, net positive over last 24 hours - Decrease FWF to 100cc q4h 05/14 given improved hypernatremia - LUE dupplex negative for DVT 05/11 - Daily chem Sore throat, improving Complaining of mild sore throat starting 05/11. Likely multifactorial in setting of recent intubationin addition to NGT. No significant congestion, fevers. Would consider viral URI as well. Will treatsymptomatically and can consider viral swabs if worsening or becomes febrile. - Chloraseptic spray PRN Leukocytosis Increasing WBC 05/14. Patient without localizing symptoms, reports sore throat is improving. Denies significant cough, SOB, abdominal pain. Has been afebrile, otherwise HDS. Will continue to trend CBC,monitor clinically - Trend CBC Ileus - resolved 05/05 KUB mild bowel gas distention of small bowel, now having BM - tolerating tube feeds at goal - FEES with CITY PLANNING TEACHER 05/13 with some concerns of aspiration possibly related to NGT and ongoing laryngeal edema: -- Transition NG to DHT -- MBS on 05/16 -- Consider steroids pending improvement with DHT iso possible ongoing laryngeal edema 05/08 post-intubation inflammation - Will advance diet as tolerable if NGT can be removed Concern for status epilepticus, stable EEG at OSH with GPDs raising concern for status. MRI Brain w/wo 05/06 with small focus of abnormal signal in the medial right parietal lobe: Artifact vs. postictal changes.CTH without acute finding on05/05. LP 05/05 with opening pressure 23, no positive findings, S/p meningitis coverage with ampicillin, acyclovir, rocephin. No seizures since arrival to [facility]. - Neurology consulted and following - Scheduled Vimpat given renal function - Follow up in the Neurology clinic in 2-3 months 10 beat run of VT - likely in s/o electrolyte abnormalities. Electrolytes corrected without furtherepisodes thus far. - Cont Coreg 6.25 BID - Echo with pEF, hypokinesis of inferior segment, enlarged LA - Plan for outpatient cardiac follow up Hypoxemic Respiratory failure, improved Post extubation stridor Intubated for airway protection at OSH given c/f status and extubated here on 05/08. Completed 24 hours of dexamethasone 6mg Q6 for post extubation stridor - now weaned to RA - CXR 05/08 without acute findings - PRN guaifenesin for cough ordered - Spot diuresis, goal net even to 500mL negative Acute blood loss on chronic anemia, stable Macrocytic anemia Acute anemia likely due to DOOR TO DOOR SELLING AGENT in the setting of acute illness and anemia of chronic disease /2 CKD - No S/S of active bleeding - iron studies normal - Transfuse goal Hgb > 7 Sepsis, improving E. Coli UTI Urine positive for E. Coli at OSH. Now s/p several courses of abx - ceftriaxone (05/05-05/10)acyclovir(05/05-05/07), levaquin (-05/05) vancomycin (05/05-05/06) ampicillin (05/05-05/06) - S/p levophed in MICU - Sputum, blood, and CSF culture 05/05 with no acute findings, santillan cultured again on 05/08 given fever - 05/09 Bcx NGTD - Cdiff PCR negative - 05/08 LRCX light growth common oropharyngeal microbes - daily CBC Acute provoked DVT in the left internal jugular vein 05/08 CVC placement, line since removed - transitioned heparin gtt to eliquis on 05/10 Acute on chronic HFpEF TTE 05/11 with EF 55%, hypokinesis of basal inferior/inferolateral segments. Patient without chest pain currently. EKG non-ischemic. - Renal function and hemodynamics currently preclude HFpEF GDMT - can consider folding back in as she improves - spot dose lasix for goal even to -500mL - lipid panel with LDL <70 - Will initiate atorvastatin 40mg daily for secondary prevention Resolved hospital problems: Frequent PVC's bigeminy - resolved Likely secondary to RIJ placement on 05/05 at OSH. Resolved after removal of CVC - Daily chemistry - Goal K >4, Mg > 2, Phos > 2.5 Chronic problems: HTN - Hold lisinopril given JOSE on CKD Hypothyroidism - Continue home levothyroxine Complexity. Hypocalcemia - Continue to monitor and replete. Obesity, Class 2 Body mass index is 39.87 kg/m . - Follow with PCP for dietary and lifestyle modifications. . Any conditions listed below are present on admission unless otherwise specified. . DVT PPX: eliquis Code Status: Full Code Disposition: Transferred to [facility], will likely go to [facility] when medically cleared Discussed with team and attending on rounds. Heladio Prather MD 05/14/24 Hospital Course: On 05/01/24 EMS transferred patient to [facility] and then she became non responsiveand hypotensive requiring norepinephrine. EEG noted GPDs and neurology was consulted and reviewed EEG who believed it met criteria status epilepticus. Patient was transferred to [facility] on 05/04 for further neurological medical management. She was admitted to the MICU for critical care management. Per H&P: The patient initially presented to the [facility] ED 05/01/24 with AMS found to havesevere metabolic derangements (pH 7.0, acute renal failure with uremia, hyperkalemia, acidosis). She was intubated, initiated on broad spectrum antibiotics, and placed on vasopressors after inadequate response to 30 cc/kg IVF resuscitation. CTH on admission reportedly normal (reports not available or included in transfer paperwork, [facility] radiology contacted to push images). An infectious workup wasnotable only for E. Coli UTI (blood cultures remained negative). The patient was noted to have possible seizure (right arm twitching) and spot EEG was obtained w/ findings concerning for possible status epilepticus. Per neurology recommendations, the patient received a keppra load and was placed oncEEG. Interval history: LP obtained on 05/05 which was negative, placed on empiric meningitis/encephalitis coverage from 05/05 to 05/07. cEEG discontinued on 05/06 and MRI brain acquired with motion artifact and possible abnormal cortical/subcortical FLAIR signal in right parietal lobe. Started renal replacement 05/06 for renalclearance only and weaned off of vasopressors. Renal replacement sessions complicated by frequent clotting and discontinued given evidence of renal recovery, urine production. MRI cspine acquired ue to concern for lack of extremity movement and bilateral upgoing babinski. Extubated 05/08 with subsequent laryngeal edema, received rac epi and decadron. Ultimately deemed stable for transfer to the floor on 05/09. Objective: Vitals: 05/14/24 0911 BP: 135/60 Pulse: 83 Resp: 16 Temp: 97.8 F (36.6 C) SpO2: 92% O2 Device: room air (05/14/24 0911) Flow (L/min): 1 (05/10/24 0000) Gen: chronically ill appearing, obese, appears comfortable HENT: NCAT, EOMI, MMM Cardio: RRR, normal S1/S2, no murmur Resp: no respiratory distress, no wheezes, no increased WOB, expiratory rhonchi present GI: soft, NT, ND, normal BS MSK: no joint swelling or erythema, scattered ecchymoses with evidence of swelling in R hand, chronic skin changes Ext: warm and well-perfused, 2+ pitting edema in BLE, evidence of previous skin graft overlying left knee. Bilateral hands appear swollen but soft. Neuro: alert and oriented Data Review: WBC/Hgb/Hct/Plts: 13.46/7.8/26.4/374 (05/14 421) Na/K+/Phos/Mg/Ca: 138/4.6/3.8/2.0/-- (05/14 421) Bun/Creat/Cl/CO2/Glucose: 60/1.70/103/26/109 (05/14 421-05/14 628) ECHOCARDIOGRAM Final Result VASC DUPLEX VENOUS EXTREMITY UPPER LEFT Final Result MRI SPINE CERVICAL WITH AND WITHOUT CONTRAST Final Result IMPRESSION: Multilevel degenerative spondylosis and degenerative disc disease results in moderate spinal canal stenosis at C5-6 and C6-7 with moderate bilateral neural foraminal stenosis. Visualization severely degraded by motion. Evaluation for spinal cord signal is significantly degraded by motion and Puga artifact. Cannot exclude myelopathic cord signal. No definite myelopathic cord signal is visualized in the cervical spine. Suspected Puga artifact artifact in the upper thoracic spine. CHEST 1 VIEW PORTABLE Final Result IMPRESSION: Patient is rotated to the left. Medial bibasilar opacities appear slightly improved or more likely atelectasis in the setting of improved lung volumes. Mild central bronchial wall cuffing can be seen with early edema or bronchitis. CHEST 1 VIEW PORTABLE Final Result IMPRESSION: No evidence of pneumomediastinum or subcutaneous gas on radiograph. ABDOMEN 1 VIEW PORTABLE Final Result IMPRESSION: Improved ileus without residual dilated small bowel. BRAIN WITH AND WITHOUT CONTRAST Final Result IMPRESSION: Motion artifact on multiple pulse sequences degrades evaluation. Questionable small focus of abnormal cortical/subcortical FLAIR signal in the medial right parietal lobe. This could be artifactual or potentially related to postictal changes. PLAIN FILM FOR NEURO EXAM Final Result IMPRESSION: No radiopaque foreign bodies to preclude MRI. Intrauterine contraceptive device in place. CHEST 1 VIEW PORTABLE Final Result IMPRESSION: 1. Right IJ CVC with tip terminating at the superior cavoatrial junction. No pneumothorax. 2. Interval retraction of the endotracheal tube which now terminates 3.6 cm above the level of the lisa, in good position. 3. Unchanged left basilar volume loss, otherwise lungs are clear. I personally viewed and interpreted these images and I have reviewed and approved this report. HEAD WITHOUT CONTRAST Final Result IMPRESSION: No acute cranial abnormality. ABDOMEN 1 VIEW PORTABLE Final Result IMPRESSION: Enteric tube in stomach. Similar visualized dilated small bowel loops. CHEST 1 VIEW PORTABLE Final Result IMPRESSION: 1. Endotracheal tube at the level the lisa, suggest adjustment. 2. Other support device as described above, in appropriate positions. 3. Left basilar volume loss. No pneumothorax. I, Marva Wallis MD have discussed the critical finding/s of endotracheal tube malposition with PRATIK ENNIS on 05/05/2024 9:59 AM. I personally viewed and interpreted these images and I have reviewed and approved this report. ABDOMEN 1 VIEW PORTABLE Final Result IMPRESSION: 1. Enteric tube projects over the stomach. 2. Mild gaseous distention of small bowel may reflect ileus. Cosigned by Kevon Lyon MD at 05/14/2024 11:14 AM EST Associated attestation - Kevon Lyon MD - 05/14/2024 11:14 AM EST Attending Addendum: This patient was discussed, examined, and evaluated with the resident physician on 05/14/2024. I haveindependently confirmed essential components of the medical history and the physical examination. Iagree with the above therapeutic plan and have edited the resident's note as appropriate: ASSESSMENT: Principal Problem: Status epilepticus Active Problems: Anemia (Low HGB) Renal disease (High Serum Creatinine) Thrombocytopenia (Low Platelets) (HFpEF) heart failure with preserved ejection fraction Complexity. Hypocalcemia - Continue to monitor and replete. Obesity, Class 2 Body mass index is 39.87 kg/m . - Follow with PCP for dietary and lifestyle modifications. . Any conditions listed below are present on admission unless otherwise specified. . Chronic Diastolic Heart Failure - HFpEF, will resume GDMT when hemodynamics allow Kevon Lyon MD Agent Based Modeler, Clinical Division of General Internal Medicine * Ralph Shafer DO - 05/13/2024 2:09 PM EST NEPHROLOGY INPATIENT FOLLOW UP NOTE Reason for Consultation: JOSE Referring Provider: Kevon Lyon MD Hospital Day: 9 SUBJECTIVE Seen at bedside this morning. More awake today, asking for ice chips. ASSESSMENT AND PLAN: 83F with PMH of CKD 4, neurogenic bladder, HTN, obesity s/p gastric bypass, TADEO, COPD, HFpEF, hypothyroidism, DVT/PE, chronic lymphedema [facility] she presented with AMS and found to have status epilepticus. Hospital course c/b acute respiratory failure requiring intubation and JOSE requiring DOOR TO DOOR SELLING AGENT for which nephrology is consulted. Impression: Oliguric JOSE on CKD 4 - improved Recent b/l Cr ~1.5-1.8 JOSE likely due to ischemic and septic ATN due to septic shock S/p DOOR TO DOOR SELLING AGENT now monitoring off - line removed Azotemia Hypokalemia - resolved Hypomagnesemia - resolved Hypocalcemia Macrocytic anemia AMS Septic shock (shock resolved) Acute respiratory failure s/p intubation Urine sediment (05/05/24): Dissolving granular casts, CaOx monohydrate crystals, WBCs, RTECs, debris PLAN Would continue to hold diuresis for, output not fully recorded with unmeasured occurrences. Can give spot doses of Lasix if needed to achieve euvolemia Will require some PO diuretics at discharge at least. Follow up with her outpatient Nephrology in 1-2 months post-discharge C/w FWF 200cc q4h for now, monitor sodium daily No urgent indication for DOOR TO DOOR SELLING AGENT - line was already removed Will continue to follow Accurate Is/Os Avoid nephrotoxins as able These recommendations are not finalized until signed by an attending staff physician. Thank you for allowing us to participate in the care of this patient. Plan discussed with attending. Please call with any questions or concerns. Please contact us via web-exchange - Nephrology - General Consults Fellow. For urgent/stat calls 5pm to 7am or all day on the weekend, please page the on- call Neph fellow on [employer]Plan[employer]. Joao Shafer DO Clinical Nephrology Fellow, PGY-5 Pager [phone] OBJECTIVE Vitals: BP 145/69 (BP Location: Right leg, BP Position: Lying) Pulse 71 Temp 97.8 F (36.6 C) (Oral) Resp 18 Ht 1.651 m (5' 5) Wt 108.9 kg (240 lb) SpO2 94% BMI 39.94 kg/m Smoking Status Unknown I/O last 3 completed shifts: In: 819 [NG/GT:819] Out: 675 [Urine:675] Physical Examination: Constitutional: awake, comfortable appearing Chest: Coarse and diminished throughout Cardiovascular: Regular Abdomen: Soft, non-tender, +distended Extremities: Warm, well perfused. Trace peripheral edema Skin: No rash Access: None Scheduled Medications apixaban 10 mg Per NG tube Q12H Followed by [START ON 05/17/2024] apixaban 5 mg Per NG tube Q12H Atorvastatin 40 mg Oral QHS carveDILOL 6.25 mg Per NG tube Q12H lacosamide 100 mg Intravenous Q12HNS Levothyroxine 125 mcg Per NG tube Before BKF ProSource TF 1 Package Nasogastric Daily vitamin B complex/vitamin C/folic acid (NEPHRONEX) 5 mL Per NG tube Daily Water liquid (free water) 200 mL Per NG tube Q4H Nepro/CarbSteady 35 mL/hr (05/13/24 0852) Relevant Data: Lab Results Component Value Date SODIUM 143 05/13/2024 POTASSIUM 4.4 05/13/2024 CHLORIDE 104 05/13/2024 CO2 31 05/13/2024 BUN 62 (H) 05/13/2024 CREATSERUM 1.89 (H) 05/13/2024 GLUCOSE 121 (H) 05/13/2024 Lab Results Component Value Date WBC 11.50 (H) 05/13/2024 HGB 8.0 (L) 05/13/2024 HCT 26.9 (L) 05/13/2024 PLATELET 368 05/13/2024 MCV 101.9 (H) 05/13/2024 Lab Results Component Value Date CALCIUM 7.8 (L) 05/12/2024 PHOSPHORUS 3.4 05/13/2024 Cosigned by Evans Quinonez MD at 05/13/2024 2:33 PM EST Associated attestation - Evans Carlos MD - 05/13/2024 2:33 PM EST Renal Attending Attestation: I have seen and examined this patient personally on 05/13/2024. I re-interviewed the patient and reviewed the medical records. I have independently verified Dr. Shafer's history and physical examination findings and I agree with his assessment and plan with my edits added. I discussed the case with him and supervised the medical decision making. Patient with JOSE on CKD, required dialysis but now appears to be recovering. SCr close to baseline. Line removed. Still azotemic and mild hypervolemia. I/Os likely matched to slightly negative. Some unmeasured outputs. Can give Lasix as needed to keep I/Os even to negative balance. Electrolytes better balanced today. Patient will need Nephrology follow up in 4-8 weeks of discharge. Will continue to follow. Evans Cornejo MD [phone] operator Division of Nephrology * Heladio Prather MD - 05/13/2024 1:38 PM EST Internal Medicine Progress Note Patient: Mari Lopez, 1940, [id number] Physician: Heladio Prather MD, PGY2, GM8 service Subjective: Pt seen and evaluated this morning at bedside. She reports that she tolerated ice chips well this morning. Complaining of sore throat but reports topical spray is helping. Eager to try to get NGT removed. Understands plan for FEES this afternoon with CITY PLANNING TEACHER team. Assessment/Plan: Mari Lopez is a 83 y.o. female HTN, hypoparathyroidism, hypothyroidism, BAYRON, gastric bypass (2003), CKD stage 4, HFpEF, and TADEO. Initially admitted to MICU for status epilepticus now transfered to [facility]. Daily Updates: - Net positive 144mL over last 24 hours - Chemistry largely stable - Plan for IV Lasix 20mg x1 today - Pending FEES with CITY PLANNING TEACHER - plan to transition diet and advance as tolerated if able - Dispo to [facility] facility in [place] once medically stable JOSE on CKD stage 4, non-oliguric JOSE likely due to ischemic and septic ATN due to septic shock. Improving renal function. Required renal replacement during MICU stay for renal clearance. Now making good urine with prn lasix.. Serum creatinine 1.5-1.6 for a recent baseline. HD 05/06 for clearance, 5 hours PIRRT in the morning of 05/07/24 and stopped d/t filter clot. HD line since removed. - Followings Dr. Gilmore (health and fitness instructor) every 6 months - Nephrology consulted, appreciate recs regarding ongoing diuresis: -- Resume Lasix 20mg daily 05/13 given stable chemistry, net positive over last 24 hours - Rec increase free water flushes to 200cc q4h --> decrease to 100cc q4h if Na 140 or lower - LUE dupplex negative for DVT 2/ - Daily chem Sore throat Complaining of mild sore throat starting 05/11. Likely multifactorial in setting of recent intubationin addition to NGT. No significant congestion, fevers. Would consider viral URI as well. Will treatsymptomatically and can consider viral swabs if worsening or becomes febrile. - Chloraseptic spray PRN Ileus - resolved 05/05 KUB mild bowel gas distention of small bowel, now having BM - tolerating tube feeds at goal - FEES with CITY PLANNING TEACHER 05/13 to determine if NGT can be removed - Will advance diet as tolerable if NGT can be removed Concern for status epilepticus, stable EEG at OSH with GPDs raising concern for status. MRI Brain w/wo 05/06 with small focus of abnormal signal in the medial right parietal lobe: Artifact vs. postictal changes.CTH without acute finding on05/05. LP 05/05 with opening pressure 23, no positive findings, S/p meningitis coverage with ampicillin, acyclovir, rocephin. No seizures since arrival to [facility]. - Neurology consulted and following - Scheduled Vimpat given renal function - Follow up in the Neurology clinic in 2-3 months 10 beat run of VT - likely in s/o electrolyte abnormalities. Electrolytes corrected without furtherepisodes thus far. - Cont Coreg 6.25 BID - Echo with pEF, hypokinesis of inferior segment, enlarged LA - Plan for outpatient cardiac follow up Hypoxemic Respiratory failure, improved Post extubation stridor Intubated for airway protection at OSH given c/f status and extubated here on 05/08. Completed 24 hours of dexamethasone 6mg Q6 for post extubation stridor - now weaned to RA - CXR 05/08 without acute findings - PRN guaifenesin for cough ordered - Spot diuresis, goal net even to 500mL negative Acute blood loss on chronic anemia, stable Macrocytic anemia Acute anemia likely due to DOOR TO DOOR SELLING AGENT in the setting of acute illness and anemia of chronic disease 2/2 CKD - No S/S of active bleeding - iron studies normal - Transfuse goal Hgb > 7 Sepsis, improving E. Coli UTI Urine positive for E. Coli at OSH. Now s/p several courses of abx - ceftriaxone (05/05-05/10)acyclovir(05/05-05/07), levaquin (-05/05) vancomycin (05/05-05/06) ampicillin (05/05-05/06) - S/p levophed in MICU - Sputum, blood, and CSF culture 05/05 with no acute findings, santillan cultured again on 05/08 given fever - 05/09 Bcx NGTD - Cdiff PCR negative - 05/08 LRCX light growth common oropharyngeal microbes - daily CBC Acute provoked DVT in the left internal jugular vein 05/08 CVC placement, line since removed - transitioned heparin gtt to eliquis on 05/10 Acute on chronic HFpEF TTE 05/11 with EF 55%, hypokinesis of basal inferior/inferolateral segments. Patient without chest pain currently. EKG non-ischemic. - Renal function and hemodynamics currently preclude HFpEF GDMT - can consider folding back in as she improves - spot dose lasix for goal even to -500mL - lipid panel with LDL <70 - Will initiate atorvastatin 40mg daily for secondary prevention Resolved hospital problems: Frequent PVC's bigeminy - resolved Likely secondary to RIJ placement on 05/05 at OSH. Resolved after removal of CVC - Daily chemistry - Goal K >4, Mg > 2, Phos > 2.5 Chronic problems: HTN - Hold lisinopril given JOSE on CKD Hypothyroidism - Continue home levothyroxine Complexity. Hypocalcemia - Continue to monitor and replete. Obesity, Class 2 Body mass index is 39.94 kg/m . - Follow with PCP for dietary and lifestyle modifications. . Any conditions listed below are present on admission unless otherwise specified. . DVT PPX: eliquis Code Status: Full Code Disposition: Transferred to [facility], will likely go to [facility] when medically cleared Discussed with team and attending on rounds. Heladio Prather MD 05/13/24 Hospital Course: On 05/01/24 EMS transferred patient to [facility] and then she became non responsiveand hypotensive requiring norepinephrine. EEG noted GPDs and neurology was consulted and reviewed EEG who believed it met criteria status epilepticus. Patient was transferred to [facility] on 05/04 for further neurological medical management. She was admitted to the MICU for critical care management. Per H&P: The patient initially presented to the [facility] ED 05/01/24 with AMS found to havesevere metabolic derangements (pH 7.0, acute renal failure with uremia, hyperkalemia, acidosis). She was intubated, initiated on broad spectrum antibiotics, and placed on vasopressors after inadequate response to 30 cc/kg IVF resuscitation. CTH on admission reportedly normal (reports not available or included in transfer paperwork, OSH radiology contacted to push images). An infectious workup wasnotable only for E. Coli UTI (blood cultures remained negative). The patient was noted to have possible seizure (right arm twitching) and spot EEG was obtained w/ findings concerning for possible status epilepticus. Per neurology recommendations, the patient received a keppra load and was placed oncEEG. Interval history: LP obtained on 05/05 which was negative, placed on empiric meningitis/encephalitis coverage from 05/05 to 05/07. cEEG discontinued on 05/06 and MRI brain acquired with motion artifact and possible abnormal cortical/subcortical FLAIR signal in right parietal lobe. Started renal replacement 05/06 for renalclearance only and weaned off of vasopressors. Renal replacement sessions complicated by frequent clotting and discontinued given evidence of renal recovery, urine production. MRI cspine acquired ue to concern for lack of extremity movement and bilateral upgoing babinski. Extubated 05/08 with subsequent laryngeal edema, received rac epi and decadron. Ultimately deemed stable for transfer to the floor on 05/09. Objective: Vitals: 05/13/24 1121 BP: 145/69 Pulse: 71 Resp: 18 Temp: 97.8 F (36.6 C) SpO2: 94% O2 Device: room air (05/13/24 1121) Flow (L/min): 1 (05/10/24 0000) Gen: chronically ill appearing, obese, appears comfortable HENT: NCAT, EOMI, MMM Cardio: RRR, normal S1/S2, no murmur Resp: no respiratory distress, no wheezes, no increased WOB, expiratory rhonchi present GI: soft, NT, ND, normal BS MSK: no joint swelling or erythema, scattered ecchymoses with evidence of swelling in R hand, chronic skin changes Ext: warm and well-perfused, 2+ pitting edema in BLE, evidence of previous skin graft overlying left knee. Bilateral hands appear swollen but soft. Neuro: alert and oriented Data Review: WBC/Hgb/Hct/Plts: 11.50/8.0/26.9/368 (05/137) Na/K+/Phos/Mg/Ca: 143/4.4/3.4/2.2/-- (05/13 36) Bun/Creat/Cl/CO2/Glucose: 62/1.89/104/31/121 (05/13 36-05/13 112) ECHOCARDIOGRAM Final Result VASC DUPLEX VENOUS EXTREMITY UPPER LEFT Final Result MRI SPINE CERVICAL WITH AND WITHOUT CONTRAST Final Result IMPRESSION: Multilevel degenerative spondylosis and degenerative disc disease results in moderate spinal canal stenosis at C5-6 and C6-7 with moderate bilateral neural foraminal stenosis. Visualization severely degraded by motion. Evaluation for spinal cord signal is significantly degraded by motion and Puga artifact. Cannot exclude myelopathic cord signal. No definite myelopathic cord signal is visualized in the cervical spine. Suspected Puga artifact artifact in the upper thoracic spine. CHEST 1 VIEW PORTABLE Final Result IMPRESSION: Patient is rotated to the left. Medial bibasilar opacities appear slightly improved or more likely atelectasis in the setting of improved lung volumes. Mild central bronchial wall cuffing can be seen with early edema or bronchitis. CHEST 1 VIEW PORTABLE Final Result IMPRESSION: No evidence of pneumomediastinum or subcutaneous gas on radiograph. ABDOMEN 1 VIEW PORTABLE Final Result IMPRESSION: Improved ileus without residual dilated small bowel. BRAIN WITH AND WITHOUT CONTRAST Final Result IMPRESSION: Motion artifact on multiple pulse sequences degrades evaluation. Questionable small focus of abnormal cortical/subcortical FLAIR signal in the medial right parietal lobe. This could be artifactual or potentially related to postictal changes. PLAIN FILM FOR NEURO EXAM Final Result IMPRESSION: No radiopaque foreign bodies to preclude MRI. Intrauterine contraceptive device in place. CHEST 1 VIEW PORTABLE Final Result IMPRESSION: 1. Right IJ CVC with tip terminating at the superior cavoatrial junction. No pneumothorax. 2. Interval retraction of the endotracheal tube which now terminates 3.6 cm above the level of the lisa, in good position. 3. Unchanged left basilar volume loss, otherwise lungs are clear. I personally viewed and interpreted these images and I have reviewed and approved this report. HEAD WITHOUT CONTRAST Final Result IMPRESSION: No acute cranial abnormality. ABDOMEN 1 VIEW PORTABLE Final Result IMPRESSION: Enteric tube in stomach. Similar visualized dilated small bowel loops. CHEST 1 VIEW PORTABLE Final Result IMPRESSION: 1. Endotracheal tube at the level the lisa, suggest adjustment. 2. Other support device as described above, in appropriate positions. 3. Left basilar volume loss. No pneumothorax. I, Marva Wallis MD have discussed the critical finding/s of endotracheal tube malposition with PRATIK ENNIS on 05/05/2024 9:59 AM. I personally viewed and interpreted these images and I have reviewed and approved this report. ABDOMEN 1 VIEW PORTABLE Final Result IMPRESSION: 1. Enteric tube projects over the stomach. 2. Mild gaseous distention of small bowel may reflect ileus. Cosigned by Kevon Lyon MD at 05/13/2024 2:10 PM EST Associated attestation - Kevon Lyon MD - 05/13/2024 2:10 PM EST Attending Addendum: This patient was discussed, examined, and evaluated with the resident physician on 05/13/2024. I haveindependently confirmed essential components of the medical history and the physical examination. Iagree with the above therapeutic plan and have edited the resident's note as appropriate: ASSESSMENT: Principal Problem: Status epilepticus Active Problems: Anemia (Low HGB) Renal disease (High Serum Creatinine) Thrombocytopenia (Low Platelets) (HFpEF) heart failure with preserved ejection fraction Complexity. Hypocalcemia - Continue to monitor and replete. Obesity, Class 2 Body mass index is 39.94 kg/m . - Follow with PCP for dietary and lifestyle modifications. . Any conditions listed below are present on admission unless otherwise specified. .Chronic Diastolic Heart Failure - HFpEF, will resume GDMT when hemodynamics allow Kevon Lyon MD Agent Based Modeler, Clinical Division of General Internal Medicine * JANA Byrne - 05/13/2024 12:48 PM EST Placement Plan Expected Discharge Date: 05/13/2024 Referred Level of Care: IPR Barriers: Medical Readiness and Transport Current Referrals and Status 1. [facility]- Reserved Patient is not medically ready at this time. Patient does not need precert. JANA Suazo Area Operations Director Can be reached by secure chat. * AZAEL Carvalho - 05/13/2024 10:30 AM EST Acute Care Speech Language Pathology Treatment Diet Recommendations: Recommended Method of Nutrition: Short-term alternate nutrition Discharge Recommendations: Based on the below outcome measures/assessment score(s) and CITY PLANNING TEACHER clinicaljudgment, discharge destination recommendation is: Deferred to PT/OT recomendations related to mobility Supporting factors for discharge setting: Impaired swallow function limiting nutritional status andsafety with oral intake Acute CITY PLANNING TEACHER Outcomes Tracking Communicate basic wants and needs?: yes Demo insight/appreciation of deficits?: yes Complete basic problem solving?: unable to determine Current therapy frequency recommendation in acute: Swallow Therapy Frequency: 5 times a week Clinical Impression: Patient presents with oropharyngeal phase impairments presumed secondary to laryngeal edema, now status post steroids for post extubation stridor. Recommend FEES to objectively assess swallow physiology and further establish plan of care. Recommend continue with short term enteral nutrition access. Ok for ice chips with RN supervision. CITY PLANNING TEACHER will continue to follow for ongoing dysphagia management. Subjective: Mari was seen at bedside, alert and complaining of back pain. CITY PLANNING TEACHER at bedside to determine readiness for FEES in the setting of secretion management. Pain: General Pain Documentation (Adult, OB, Peds) Presence of Pain: denies pain/discomfort Presence of Pain Score (Auto-calculated): 0 Precautions: Patient Safety Communication Prior to Visit: Nursing Lines/Tubes/Drains (Rehab Status): Telemetry, Tube feed Existing Precautions/Restrictions: fall (BENITA; HOB at least 30 degrees) Respiratory Status: O2 Sat (%): 94 % (05/13 112) O2 Device: room air (05/13 1120) Patient Vitals for the past 2 hrs: Temp Temp src Pulse Heart Rate Source Resp BP MAP (mmHg) BP Method BP Location BP Position SpO2 O2 Device 05/13/24 1121 97.8 F (36.6 C) Oral 71 Monitor 18 145/69 99 mmHg Automatic Right leg Lying 94 % roomair Acute CITY PLANNING TEACHER Goals Plan of Care by AZAEL Carvalho at 05/13/2024 10:30 AM Version 1 of 1 Problem: Dysphagia Goal: FEES - Patient will participate in Fiberoptic Endoscopic Evaluation of Swallowing (FEES) study to objectively assess pharyngeal swallow function to most appropriately guide CITY PLANNING TEACHER plan of care Outcome: Ongoing Patient demonstrated difficulty with sitting upright due to back pain. Patient with ability to clear secretions but required cues to use oral suction to fully clear the secretions. She declined ice chip trials but was agreeable to thin liquids via teaspoon. Patient demonstrated delayed throat clear, suspect airway events secondary to laryngeal edema and NGT. Will proceed with FEES for objective assessment. Plan for next session: Ongoing dysphagia interventions CITY PLANNING TEACHER Outcomes: Functional Oral Intake Score: 1 Patient Education/Instruction Learners: Patient Education provided: Dysphagia risk factors, Dysphagia recommendations/impressions Teaching method: Verbal Education/Instruction Learner response: Returns demonstration, Needs review Learning preferences: Auditory Learning considerations: Cognition Speech Language Pathologist: AZAEL Carvalho, [facility] Time In: 1030 Time Out: 1050 Total Visit Time: 20 minutes Total Treatment Time (skilled, billable minutes): 20 minutes Non-billable assistance during session: none Assisted by during session: no one PPE used during patient interaction: gloves Patient location/status at end of session: bed with head of bed elevated Patient alarms at end of session: bed alarm Needs in reach CITY PLANNING TEACHER Evaluation and Treatment Time Swallowing Dysfunction Treatment 12514: 20 Upon discontinuation of Acute Care Speech Therapy Services or patient discharge from the hospital this note represents the current Speech Therapy Discharge Summary * Ralph Shafer DO - 05/12/2024 1:44 PM EST NEPHROLOGY INPATIENT FOLLOW UP NOTE Reason for Consultation: JOSE Referring Provider: Kevon Lyon MD Hospital Day: 8 SUBJECTIVE Seen at bedside this morning. More awake today, asking for ice chips. ASSESSMENT AND PLAN: 83F with PMH of CKD 4, neurogenic bladder, HTN, obesity s/p gastric bypass, TADEO, COPD, HFpEF, hypothyroidism, DVT/PE, chronic lymphedema who [facility] after she presented with AMS and found to have status epilepticus. Hospital course c/b acute respiratory failure requiring intubation and JOSE requiring DOOR TO DOOR SELLING AGENT for which nephrology is consulted. Impression: Oliguric JOSE on CKD 4 - stable JOSE likely due to ischemic and septic ATN due to septic shock Azotemia Hypokalemia - resolved Hypomagnesemia - resolved Hypocalcemia Macrocytic anemia AMS Septic shock (shock resolved) Acute respiratory failure s/p intubation Urine sediment (05/05/24): Dissolving granular casts, CaOx monohydrate crystals, WBCs, RTECs, debris PLAN Would continue to hold diuresis today given 1.5L UOP yesterday off diuretics and net negative 1.44L Suspect chemistry from 05/11 is inaccurate and overall her kidney function is stable/slightly improved today C/w FWF 200cc q4h for now, decrease to 100cc q4h tomorrow if her sodium is 140 or lower No urgent indication for DOOR TO DOOR SELLING AGENT - line was already removed Accurate Is/Os Avoid nephrotoxins as able These recommendations are not finalized until signed by an attending staff physician. Thank you for allowing us to participate in the care of this patient. Plan discussed with attending. Please call with any questions or concerns. Please contact us via web-exchange - Nephrology - General Consults Fellow. For urgent/stat calls 5pm to 7am or all day on the weekend, please page the on- call Neph fellow on WebExchange. Joao Shafer DO Clinical Nephrology Fellow, PGY-5 Pager [phone] OBJECTIVE Vitals: BP 113/71 (BP Location: Left arm, BP Position: Lying) Pulse 67 Temp 98.4 F (36.9 C) (Oral) Resp 18 Ht 1.651 m (5' 5) Wt 108.9 kg (240 lb) SpO2 93% BMI 39.94 kg/m Smoking Status Unknown I/O last 3 completed shifts: In: 60 [NG/GT:60] Out: 1500 [Urine:1500] Physical Examination: Constitutional: awake, comfortable appearing Chest: Coarse and diminished throughout Cardiovascular: Regular Abdomen: Soft, non-tender, +distended Extremities: Warm, well perfused. + peripheral edema, +RUE swelling Skin: No rash Access: None Scheduled Medications apixaban 10 mg Per NG tube Q12H Followed by [START ON 05/17/2024] apixaban 5 mg Per NG tube Q12H carveDILOL 6.25 mg Per NG tube Q12H lacosamide 100 mg Intravenous Q12HNS Levothyroxine 125 mcg Per NG tube Before BKF ProSource TF 1 Package Nasogastric Daily vitamin B complex/vitamin C/folic acid (NEPHRONEX) 5 mL Per NG tube Daily Water liquid (free water) 200 mL Per NG tube Q4H Nepro/CarbSteady 35 mL/hr (05/12/24 0952) Relevant Data: Lab Results Component Value Date SODIUM 142 05/12/2024 POTASSIUM 4.6 05/12/2024 CHLORIDE 103 05/12/2024 CO2 31 05/12/2024 BUN 63 (H) 05/12/2024 CREATSERUM 2.19 (H) 05/12/2024 GLUCOSE 96 05/12/2024 Lab Results Component Value Date WBC 11.05 05/12/2024 HGB 7.9 (L) 05/12/2024 HCT 26.9 (L) 05/12/2024 PLATELET 299 05/12/2024 MCV 102.7 (H) 05/12/2024 Lab Results Component Value Date CALCIUM 7.8 (L) 05/12/2024 PHOSPHORUS 3.7 05/12/2024 Cosigned by Evans Quinonez MD at 05/12/2024 3:21 PM EST * Javed Sanchez OT - 05/12/2024 12:20 PM EST Acute Occupational Therapy Treatment Prior Gross Functional Mobility: Current AM-PAC score(s): CURRENT AM-PAC Activity Raw Score: 7 Based on the above AM-PAC score(s), and OT clinical judgment, discharge destination recommendation is: Group Home Facility Barriers to discharge home: Patient needs assistance with functional mobility, Patient needs assistance with ADLs, Patient needs assistance with IADLs (see note below), Patient needs assistance with medication management, Patient needs assistance with self-care for medical condition (see note below), Cognitive impairments that impact safety (see note below), Lack of supervision necessary to mitigate fall risk Mobility equipment available at home: ADL equipment available at home: Equipment recommendations for discharge: to be determined Equipment issued: Current therapy frequency recommendation(s) in acute: 5 times a week Precautions and Weightbearing Status: OT Existing Precautions/Restrictions: fall Tube feed Patient Safety Communication Prior to Visit: Nursing Subjective: Pt pleasant this date Pain: General Pain Documentation (Adult, OB, Peds) Presence of Pain: reports pain/discomfort Comfort/Acceptable General Pain Level/Goal: 5 Pain Location: back DVPRS (Defense and Veterans Pain Rating Scale) DVPRS: Rest: 5- moderate pain DVPRS: Activity: 6- moderate pain General Pain Descriptors Pain Frequency: frequent Pain Quality: aching Factors That Aggravate Pain: activity Factors That Relieve Pain: repositioning Objective/Observation: Vitals/Vitals Responses to Treatment: WFL O2 Device: room air Cognition Overall Cognitive Status: Impaired Arousal/Alertness: Appropriate responses to stimuli Orientation Level: Oriented to person, Oriented to place Following Commands: Follows multistep commands with increased time, Follows multistep commands withrepetition Safety Judgment: Decreased awareness of need for safety Awareness of Errors: Assistance required to identify errors made, Assistance required to correct errors made Deficits: Fully aware of deficits Attention Span: Appears intact Memory: Decreased short term memory, Decreased recall of precautions Problem Solving: Assistance required to implement solutions, Assistance required to generate solutions Cognition Comments: Pt continues to demonstrate the need for A and cues with orientation, insihgt, and awareness ADL Assessment/Intervention: Grooming Assistance: Maximal Grooming Location: bed level Grooming Deficit: Increased time to complete, Pain, Manipulation of items, Retrieval of items, Wash/dry hands, Wash/dry face, Oral care Grooming Skilled Rationale (Verbal/Tactile/Visual/Demonstration): Facilitate postural control, Facilitate positioning, Technique of activity, Proximal support to increase distal control for task Grooming Intervention/Details: pt requires hand over hand A with increased support for maintianing grasps of items, transport and initation/completion Toilet Assistance: Total Toileting Location: other, see comments (incontinent) Toileting Deficit: Increased time to complete, Pain, Grab bar use, Clothing management up, Clothingmanagement down, Bladder incontinence, Bowel incontinence Toilet Skilled Rationale (Verbal/Tactile/Visual/Demonstration): Technique of activity, Facilitate postural control, Facilitate positioning Toileting Intervention/Details: Increased A due to incontience and laura care hygiene Extremity Assessments: See OT Evaluation flowsheet for Extremity Measurement updates. Skin and Edema: Skin Integrity Skin Integrity Description: Swelling, Redness Edema Edema: present Location: RUE Mobility Assessment/Intervention: Rolling/Turning Mobility [place] Level: Rolling/Turning: maximum assist (25% patient effort) Physical Assist: Rolling/Turnin person assist Bed Features/Set-up: Rolling/Turning: Flat, Use of bed rail, Friction reducing device Skilled Rationale: Positioning, Sequencing, Hand placement, Verbal cues, Initiation and execution of task Skilled Intervention/Details: Rolling/Turning: x2 to R and L for positioning and toileting Scooting Bridging Mobility [place] Level: Scooting/Bridging: dependent (less than 25% patient effort) Physical Assist: Scooting/Bridgin person assist Bed Features/Set-up: Scooting/Bridging: Flat, Friction reducing device Skilled Rationale: Positioning, Sequencing, Hand placement, Verbal cues, Initiation and execution of task Skilled Intervention/Details: Scooting/Bridging: x1 to HOB CURRENT AM-PAC Daily Activity Inpatient Short Form Putting on/Taking Off Lower Body Clothin - Total Assistance Bathin - Total Assistance Toiletin - Total Assistance Putting on/Taking Off Upper Body Clothin - Total Assistance Groomin - A Lot of Assistance Eatin - Total Assistance CURRENT AM-PAC Activity Raw Score: 7 CURRENT AM-PAC Activity Functional Limitation/Modifier: 92.44% Currently Impaired in Daily Activity- CM Interventions: Intervention 1 Intervention Name: BALA FERRARO Sets/Reps/Duration: 1 set / 10 reps Details: Sitting urpight supported in bed this therapist A with AAROM for the RUE for improved smooth muscle movement and joint integrity in order to continue working towards functional tasks I. The following movements are completed to end range without pain: shoulder flexxion/extesnion, protraction/retraction, ER/IR, lateral abduction/adduction, PNF DI and D2 pattern, elbow flexion/extension, wri st flexion/extension, and gross grasps. Assessment & Plan: Pt agreeable to skilled therapy remaining bed level for pt safety to focus on grooming, hygiene, positioning, UE ROM, and education. RUE not completed due to RUE presenting warm, red, and slightly painful with any movements; RN notified at this time and RUE positioned. Increased time required for toileting hygiene due to bowel and bladder incontinence and the need for increased A with bed mobility. Patient Instruction/Education this session: Learners: Patient Education provided: Bed mobility, Plan of care, Pain management, Positioning, Pressure relief, Safety, Skin care Plan for next session: EOB sitting Acute OT Goals Plan of Care by Javed Sanchez OT at 05/12/2024 12:20 PM Version 1 of 1 Problem: OT - ADLs Goal: Upper Body Dressing - Patient will complete upper body dressing task edge of bed with minimalassistance using adaptive equipment/compensatory strategies as needed for improved ability to complete self-care activities. Outcome: Ongoing Goal: Grooming - Patient will complete grooming edge of bed with minimal assistance for improved ability to safely complete ADLs. Outcome: Ongoing Problem: OT - Transfers Goal: Transfers Sit/Stand - Patient will demonstrate good safety awareness during sit to/from standfunctional transfer with minimal assistance and of 2 people and least restrictive device to demonstrate safe functional transfers. Outcome: Ongoing Problem: OT - Balance Goal: Balance - Seated - Patient will perform 15+ minutes of functional task in sitting with supervision and good balance to promote safety during self-care activities. Outcome: Ongoing Problem: OT - Strength/ROM Goal: Strength/ROM ADL Participation - Patient will participate in UE exercise program with minimalassistance to prevent deconditioning while in hospital and to max UE ROM/Coordination/strength for ADLs. Outcome: Ongoing Problem: OT - Cognition Goal: Cognition Simple ADL - Patient will demonstrate improved cognition, completing simple ADL task for 10+ minutes with no greater than min cues required to maintain attention. Outcome: Ongoing OT treatment consisted of the following to work and progress towards the above goal(s): OT Evaluation and Treatment Time Self Care/Home Management (ADLs) Time Entry: 30 Therapeutic Activity Time Entry: 10 Treating Therapist: Javed Sanchez OT Additional Details: OT Co-Eval/Treatment Information Co-evaluation/co-treatment performed?: No simultaneous skilled care performed Assisted by during session: RN PPE used during patient interaction: gloves Patient location at end of session: bed with head of bed elevated Alarms on at end of session: bed alarm Needs in reach. Time In: 1220 Time Out: 1300 Total Visit Time: 40 minutes Total Treatment Time (skilled, billable minutes): 40 minutes Upon discontinuation of Acute Care Occupational Therapy Services or patient discharge from the hospital this note represents the current Occupational Therapy Discharge Summary. * Adriana Lima PT - 05/12/2024 10:29 AM EST Physical Therapy Attempt Note 05/12/2024 PT Therapy Completed: Attempted Attempted Reason: (pt declines at this time due to significant fatigue; will re- attempt as able) Adriana Lima PT Time In: 1029 Time Out: 1029 Total Visit Time: 0 minutes Total Treatment Time (skilled, billable minutes): 0 minutes * AZAEL Blas - 05/12/2024 10:18 AM EST Acute Care Speech-Language Pathology Clinical Swallow Evaluation Diet recommendation: Recommended Method of Nutrition: NPO, Short-term alternate nutrition Other Recommendations: Referrals: FEES *Frequent oral care at least 3x/day. Oral care has been proven in research to reduce risk of aspiration pneumonia, including for patients who are NPO. *Consider allowance of ice chips following oral care with direct RN supervision to improve oral comfort and reduce risk of disuse atrophy. Oral care has been proven in research to reduce risk of aspiration pneumonia. Discharge Recommendations: Based on the below outcome measures/assessment score(s) and CITY PLANNING TEACHER clinicaljudgment, discharge destination recommendation is: Pending instumental swallow assessment Acute CITY PLANNING TEACHER Outcomes Tracking Communicate basic wants and needs?: yes Demo insight/appreciation of deficits?: unable to determine Complete basic problem solving?: unable to determine Current therapy frequency recommendation in acute care: Swallow Therapy Frequency: 5 times a week Date of Admission: 05/04/2024 Date of Evaluation: 05/12/2024 Attending Physician: Kevon Lyon MD General Patient Information Name: Mari Lopez Gender: female Date of : 1940 Primary Diagnosis: ICD-10-CM 1. Status epilepticus G40.901 2. Acute kidney injury N17.9 3. Acute respiratory failure, unspecified whether with hypoxia or hypercapnia J96.00 4. Anemia, unspecified type D64.9 5. Chronic kidney disease, stage IV (severe) N18.4 6. Encephalopathy acute G93.40 7. Hypovitaminosis D E55.9 8. Heart failure with preserved ejection fraction, unspecified HF chronicity I50.30 9. Benign hypertension I10 Past Medical History: Diagnosis Date (HFpEF) heart failure with preserved ejection fraction CKD (chronic kidney disease) stage 4, GFR 15-29 ml/min COPD (chronic obstructive pulmonary disease) HTN (hypertension) Lymphedema Obesity TADEO (obstructive sleep apnea) VTE (venous thromboembolism) No past surgical history on file. Pain: General Pain Documentation (Adult, OB, Peds) Presence of Pain: reports pain/discomfort Presence of Pain Score (Auto-calculated): 0 Comfort/Acceptable General Pain Level/Goal: 0 DVPRS (Defense and Veterans Pain Rating Scale) DVPRS: Rest: 0- no pain DVPRS: Activity: 8- severe pain Precautions: Patient Safety Communication Prior to Visit: Nursing Lines/Tubes/Drains (Rehab Status): Tube feed Patient History Comments: Mari Lopez is a 83 y.o. female HTN, hypoparathyroidism, hypothyroidism, BAYRON, gastric bypass (2003), CKD stage 4, HFpEF, and TADEO. Initially admitted to MICU for status epilepticus now transfered to the floor. See prior HX below: Concern for status epilepticus, stable EEG at OSH with GPDs raising concern for status. MRI Brain w/wo 05/06 with small focus of abnormal signal in the medial right parietal lobe: Artifact vs. postictal changes.CTH without acute finding on05/05. LP 05/05 with opening pressure 23, no positive findings, S/p meningitis coverage with ampicillin, acyclovir, rocephin. No seizures since arrival to [facility]. - Neurology consulted and following - Scheduled Vimpat given renal function - Follow up in the Neurology clinic in 2-3 months Hypoxemic Respiratory failure, improved Post extubation stridor Intubated for airway protection at OSH given c/f status and extubated here on 05/08. Completed 24 hours of dexamethasone 6mg Q6 for post extubation stridor - now weaned to RA - CXR 05/08 without acute findings - PRN guaifenesin for cough ordered - Spot diuresis, goal net even to 500mL negative Acute blood loss on chronic anemia, stable Macrocytic anemia Acute anemia likely due to DOOR TO DOOR SELLING AGENT in the setting of acute illness and anemia of chronic disease /2 CKD - No S/S of active bleeding - iron studies normal - Transfuse goal Hgb > 7 Sepsis, improving E. Coli UTI Urine positive for E. Coli at OSH. Now s/p several courses of abx - ceftriaxone (05/05-05/10)acyclovir(05/05-05/07), levaquin (-05/05) vancomycin (05/05-05/06) ampicillin (05/05-05/06) - S/p levophed in MICU - Sputum, blood, and CSF culture 05/05 with no acute findings, santillan cultured again on 05/08 given fever - 05/09 Bcx NGTD - Cdiff PCR negative - 05/08 LRCX light growth common oropharyngeal microbes - daily CBC Acute provoked DVT in the left internal jugular vein 05/08 CVC placement, line since removed - transitioned heparin gtt to eliquis on 05/10 JOSE on CKD stage 4, non-oliguric JOSE likely due to ischemic and septic ATN due to septic shock. Improving renal function. Required renal replacement during MICU stay for renal clearance. Now making good urine with prn lasix.. Serum creatinine 1.5-1.6 for a recent baseline. HD 05/06 for clearance, 5 hours PIRRT in the morning of 05/07/24 and stopped d/t filter clot. HD line since removed. - Followings Dr. Gilmore (health and fitness instructor) every 6 months - Nephrology consulted, appreciate recs regarding ongoing diuresis - Rec increase free water flushes to 200cc q4h - LUE dupplex done given large clot pulled out from HD line - daily chem Acute on chronic HFpEF - Renal function and hemodynamics currently preclude HFpEF GDMT - can consider folding back in as she improves - spot dose lasix for goal even to -500mL Prior CITY PLANNING TEACHER history: NA Current Method of Nutrition: Route of Nutrition: NG, NPO Respiratory Status: O2 Device: room air O2 Sat (%): 95 % Resp Rate: 16 Subjective information: Patient reclined in bed, leaning to right. assisted in positioning. Patient very motivated for PO trials . Exam limited by cognition: No Objective Evaluation: Oral Motor: Cranial Nerve Exam CN V (Trigeminal) strong equal bilateral strength of masseter and temporal muscles, normal blink CN VII (Facial) (generalized weakness) CN IX (Glossopharyngeal) uvula is midline CN X (Vagus) uvula is midline CN XI (Accessory) unable to raise head off pillow CN XII (Hypoglossal) tongue midline with strong equal strength Vocal Quality: mild GRBAS: A perceptual rating scale for voice parameters Rating scale of 0 to 3 0 = no impairment 1 = minimal to mild impairment 2 = moderate impairment 3 = severe impairment Subjective Voice Evaluation Grade of dysphonia (G): 1 Roughness (R): 1 Breathiness (B): 0 Asthenia (A): 1 Strain (S): 0 Positioning: High Potter's (60-90 degrees) Anticipatory Phase: Functional readily accepted Foods and Liquids Trialed: Modality: Amount: Ice Teaspoon x3 Thin Teaspoon, CITY PLANNING TEACHER-fed, Straw x2 teaspoon, x1 straw sip Dysphagia- pureed (IDDSI 4) Teaspoon x3 Oral Phase Function Comments Oral Mucosa Intact Dentition Natural teeth Labial Closure Functional Mastication Unable to assess Oral Stasis Absent Cough before the swallow Absent Oral Phase Summary: Impaired; patient able to siphon from straw; noted reduced bilabial closure fortsp trials of thin liquids and puree. Oral cavity cleared following all PO trials. Pharyngeal Phase Function Comments Perceived Swallow Present Cough Response Yes, Immediate Throat Clear Yes, Delayed Subjective Complaint of Residue Absent Pharyngeal Phase Summary: Presumed impaired given overt s/sx of aspiration with thin liquid trials.Patient with perceivably reduced cough strength and required extended recovery time following thin liquid trial via straw. Throat clear noted x1 with ice chip trial. No s/sx with puree. deferred cracker trials d/t pt with eyes closed and appearing to fatigue. [place] Swallow Screen: (administered by: DANISH) [place] Swallow Screening Screening Exclusion Criteria: NPO order for other medical/surgical reasons [place] Swallow Screening Result: postpone until no longer NPO for other medical/surgical reasons Voice and Swallow Outcomes: Functional Oral Intake Scale: Level 1 - No oral intake Clinical Impression: Mari Lopez presents with presumed oropharyngeal dysphagia in the setting of admission for status epilepticus, course complicated by hypoxia, extubated on 05/08. Patient readily accepted PO trials, noteddecreased bilabial closure with teaspoon trials. Pt with overt s/sx of aspiration with thin liquid c onsistencies. Recommend FEES to further evaluate pt's swallow function. Recommend NPO with AMN, with allowance of ice chips following oral care. CITY PLANNING TEACHER will continue to follow. Plan for next session: 05/12: good candidate; FEES Patient Education/Instruction Learners: Patient Education provided: Safety, Role of this discipline, Positioning, Dysphagia risk factors, Dysphagiarecommendations/impressions Teaching method: Verbal Education/Instruction Learner response: Applies knowledge Learning preferences: Auditory Learning considerations: Cognition Patient Instruction/Education comments: Patient educated regarding role of CITY PLANNING TEACHER, impressions, instrumental assessments, importance of oral care Acute CITY PLANNING TEACHER Goals Plan of Care by AZAEL Blas at 05/12/2024 9:30 AM Version 1 of 1 Problem: Dysphagia Goal: FEES - Patient will participate in Fiberoptic Endoscopic Evaluation of Swallowing (FEES) study to objectively assess pharyngeal swallow function to most appropriately guide CITY PLANNING TEACHER plan of care Outcome: Ongoing Speech Language Pathologist: AZAEL Blas Time In: 929 Time Out: 952 Total Visit Time: 23 minutes Total Treatment Time (skilled, billable minutes): 23 minutes Non-billable assistance during session: NA Assisted by during session: NA PPE used during patient interaction: gloves, gown Patient location/status at end of session: RN aware Patient alarms at end of session: RN aware Needs in reach. CITY PLANNING TEACHER Evaluation and Treatment Time Swallowing Eval [id number]: 23 Upon discontinuation of Acute Care Speech Therapy Services or patient discharge from the hospital this note represents the current Speech Therapy Discharge Summary * Heladio Prather MD - 05/12/2024 7:43 AM EST Internal Medicine Progress Note Patient: Mari Lopez, 1940, [id number] Physician: Heladio Prather MD, PGY1, GM8 service Subjective: Pt seen and evaluated this morning at bedside. She reports that she would like to have NGT removed and return to normal diet. She otherwise denies acute symptoms this morning. No chest pain, SOB, abdominal pain, fevers, chills, nausea, vomiting. Assessment/Plan: Mari Lopez is a 83 y.o. female HTN, hypoparathyroidism, hypothyroidism, BAYRON, gastric bypass (2003), CKD stage 4, HFpEF, and TADEO. Initially admitted to MICU for status epilepticus now transfered to [facility]. Daily Updates: - Improved hypernatremia - Will hold off on diuresis today given good UOP yesterday and improved labs without diuresis - CITY PLANNING TEACHER consulted for swallow eval, recommend FEES - Pending FEES will plan to transition diet and advance as tolerated - Dispo to SNF per PT/OT recs (pt with room at [facility]) JOSE on CKD stage 4, non-oliguric JOSE likely due to ischemic and septic ATN due to septic shock. Improving renal function. Required renal replacement during MICU stay for renal clearance. Now making good urine with prn lasix.. Serum creatinine 1.5-1.6 for a recent baseline. HD 05/06 for clearance, 5 hours PIRRT in the morning of 05/07/24 and stopped d/t filter clot. HD line since removed. - Followings Dr. Gilmore (health and fitness instructor) every 6 months - Nephrology consulted, appreciate recs regarding ongoing diuresis: -- Hold off on further diuresis 05/12 given improved Na and good UOP/net neg without diuresis - Rec increase free water flushes to 200cc q4h --> decrease to 100cc q4h if Na 140 or lower 05/13 - LUE dupplex negative for DVT 2 - daily chem Concern for status epilepticus, stable EEG at OSH with GPDs raising concern for status. MRI Brain w/wo 05/06 with small focus of abnormal signal in the medial right parietal lobe: Artifact vs. postictal changes.CTH without acute finding on05/05. LP 05/05 with opening pressure 23, no positive findings, S/p meningitis coverage with ampicillin, acyclovir, rocephin. No seizures since arrival to [facility]. - Neurology consulted and following - Scheduled Vimpat given renal function - Follow up in the Neurology clinic in 2-3 months 10 beat run of VT - likely in s/o electrolyte abnormalities. Electrolytes corrected without furtherepisodes thus far. - Cont Coreg 6.25 BID - Echo with pEF, hypokinesis of inferior segment, enlarged LA Hypoxemic Respiratory failure, improved Post extubation stridor Intubated for airway protection at OSH given c/f status and extubated here on 05/08. Completed 24 hours of dexamethasone 6mg Q6 for post extubation stridor - now weaned to RA - CXR 05/08 without acute findings - PRN guaifenesin for cough ordered - Spot diuresis, goal net even to 500mL negative Acute blood loss on chronic anemia, stable Macrocytic anemia Acute anemia likely due to DOOR TO DOOR SELLING AGENT in the setting of acute illness and anemia of chronic disease 2/2 CKD - No S/S of active bleeding - iron studies normal - Transfuse goal Hgb > 7 Sepsis, improving E. Coli UTI Urine positive for E. Coli at OSH. Now s/p several courses of abx - ceftriaxone (05/05-05/10)acyclovir(05/05-05/07), levaquin (-05/05) vancomycin (05/05-05/06) ampicillin (05/05-05/06) - S/p levophed in MICU - Sputum, blood, and CSF culture 05/05 with no acute findings, santillan cultured again on 05/08 given fever - 05/09 Bcx NGTD - Cdiff PCR negative - 05/08 LRCX light growth common oropharyngeal microbes - daily CBC Acute provoked DVT in the left internal jugular vein 05/08 CVC placement, line since removed - transitioned heparin gtt to eliquis on 05/10 Acute on chronic HFpEF TTE 05/11 with EF 55%, hypokinesis of basal inferior/inferolateral segments. Patient without chest pain currently. EKG non-ischemic. - Renal function and hemodynamics currently preclude HFpEF GDMT - can consider folding back in as she improves - spot dose lasix for goal even to -500mL - lipid panel with LDL <70 Resolved hospital problems: Frequent PVC's bigeminy - resolved Likely secondary to RIJ placement on 05/05 at OSH. Resolved after removal of CVC - Daily chemistry - Goal K >4, Mg > 2, Phos > 2.5 Ileus - resolved 05/05 Kub mild bowel gas distention of small bowel, now having BM - tolerating tube feeds at goal Chronic problems: HTN - Hold lisinopril given JOSE on CKD Hypothyroidism - Continue home levothyroxine Complexity. Hypocalcemia - Continue to monitor and replete. Obesity, Class 2 Body mass index is 39.94 kg/m . - Follow with PCP for dietary and lifestyle modifications. . Any conditions listed below are present on admission unless otherwise specified. . DVT PPX: eliquis Code Status: Full Code Disposition: Transferred to [facility], will likely go to [facility] when medically cleared Discussed with team and attending on rounds. Heladio Prather MD 05/12/24 Hospital Course: On 05/01/24 EMS transferred patient to [facility] and then she became non responsiveand hypotensive requiring norepinephrine. EEG noted GPDs and neurology was consulted and reviewed EEG who believed it met criteria status epilepticus. Patient was transferred to [facility] on 05/04 for further neurological medical management. She was admitted to the MICU for critical care management. Per H&P: The patient initially presented to the [facility] ED 05/01/24 with AMS found to havesevere metabolic derangements (pH 7.0, acute renal failure with uremia, hyperkalemia, acidosis). She was intubated, initiated on broad spectrum antibiotics, and placed on vasopressors after inadequate response to 30 cc/kg IVF resuscitation. CTH on admission reportedly normal (reports not available or included in transfer paperwork, [facility] radiology contacted to push images). An infectious workup wasnotable only for E. Coli UTI (blood cultures remained negative). The patient was noted to have possible seizure (right arm twitching) and spot EEG was obtained w/ findings concerning for possible status epilepticus. Per neurology recommendations, the patient received a keppra load and was placed oncEEG. Interval history: LP obtained on 05/05 which was negative, placed on empiric meningitis/encephalitis coverage from 05/05 to 05/07. cEEG discontinued on 05/06 and MRI brain acquired with motion artifact and possible abnormal cortical/subcortical FLAIR signal in right parietal lobe. Started renal replacement 05/06 for renalclearance only and weaned off of vasopressors. Renal replacement sessions complicated by frequent clotting and discontinued given evidence of renal recovery, urine production. MRI cspine acquired ue to concern for lack of extremity movement and bilateral upgoing babinski. Extubated 05/08 with subsequent laryngeal edema, received rac epi and decadron. Ultimately deemed stable for transfer to the floor on 05/09. Objective: Vitals: 05/12/24430 BP: 130/84 Pulse: 68 Resp: 16 Temp: 97.3 F (36.3 C) SpO2: 95% O2 Device: room air (05/12/24430) Flow (L/min): 1 (05/10/24 0000) Gen: chronically ill appearing, obese, appears comfortable HENT: NCAT, EOMI, MMM Cardio: RRR, normal S1/S2, no murmur Resp: no respiratory distress, no wheezes, no increased WOB, expiratory rhonchi present GI: soft, NT, ND, normal BS MSK: no joint swelling or erythema, scattered ecchymoses with evidence of swelling in R hand, chronic skin changes Ext: warm and well-perfused, 2-3+ pitting edema in BLE, evidence of previous skin graft overlying left knee Neuro: alert and oriented Data Review: WBC/Hgb/Hct/Plts: 11.05/7.9/26.9/299 (05/12 38) Na/K+/Phos/Mg/Ca: 142/4.6/3.7/2.6/7.8 (05/12 38) Bun/Creat/Cl/CO2/Glucose: 63/2.19/103/31/96 (05/12 38-05/12 614) ECHOCARDIOGRAM VASC DUPLEX VENOUS EXTREMITY UPPER LEFT Final Result MRI SPINE CERVICAL WITH AND WITHOUT CONTRAST Final Result IMPRESSION: Multilevel degenerative spondylosis and degenerative disc disease results in moderate spinal canal stenosis at C5-6 and C6-7 with moderate bilateral neural foraminal stenosis. Visualization severely degraded by motion. Evaluation for spinal cord signal is significantly degraded by motion and Puga artifact. Cannot exclude myelopathic cord signal. No definite myelopathic cord signal is visualized in the cervical spine. Suspected Puga artifact artifact in the upper thoracic spine. CHEST 1 VIEW PORTABLE Final Result IMPRESSION: Patient is rotated to the left. Medial bibasilar opacities appear slightly improved or more likely atelectasis in the setting of improved lung volumes. Mild central bronchial wall cuffing can be seen with early edema or bronchitis. CHEST 1 VIEW PORTABLE Final Result IMPRESSION: No evidence of pneumomediastinum or subcutaneous gas on radiograph. ABDOMEN 1 VIEW PORTABLE Final Result IMPRESSION: Improved ileus without residual dilated small bowel. BRAIN WITH AND WITHOUT CONTRAST Final Result IMPRESSION: Motion artifact on multiple pulse sequences degrades evaluation. Questionable small focus of abnormal cortical/subcortical FLAIR signal in the medial right parietal lobe. This could be artifactual or potentially related to postictal changes. PLAIN FILM FOR NEURO EXAM Final Result IMPRESSION: No radiopaque foreign bodies to preclude MRI. Intrauterine contraceptive device in place. CHEST 1 VIEW PORTABLE Final Result IMPRESSION: 1. Right IJ CVC with tip terminating at the superior cavoatrial junction. No pneumothorax. 2. Interval retraction of the endotracheal tube which now terminates 3.6 cm above the level of the lisa, in good position. 3. Unchanged left basilar volume loss, otherwise lungs are clear. I personally viewed and interpreted these images and I have reviewed and approved this report. HEAD WITHOUT CONTRAST Final Result IMPRESSION: No acute cranial abnormality. ABDOMEN 1 VIEW PORTABLE Final Result IMPRESSION: Enteric tube in stomach. Similar visualized dilated small bowel loops. CHEST 1 VIEW PORTABLE Final Result IMPRESSION: 1. Endotracheal tube at the level the lisa, suggest adjustment. 2. Other support device as described above, in appropriate positions. 3. Left basilar volume loss. No pneumothorax. I, Marva Wallis MD have discussed the critical finding/s of endotracheal tube malposition with PRATIK ENNIS on 05/05/2024 9:59 AM. I personally viewed and interpreted these images and I have reviewed and approved this report. ABDOMEN 1 VIEW PORTABLE Final Result IMPRESSION: 1. Enteric tube projects over the stomach. 2. Mild gaseous distention of small bowel may reflect ileus. Cosigned by Kevon Lyon MD at 05/12/2024 4:40 PM EST Associated attestation - Kevon Lyon MD - 05/12/2024 4:40 PM EST Attending Addendum: This patient was discussed, examined, and evaluated with the resident physician on 05/12/2024. I haveindependently confirmed essential components of the medical history and the physical examination. Iagree with the above therapeutic plan and have edited the resident's note as appropriate: ASSESSMENT: Principal Problem: Status epilepticus Active Problems: Anemia (Low HGB) Renal disease (High Serum Creatinine) Thrombocytopenia (Low Platelets) Complexity. Hypocalcemia - Continue to monitor and replete. Obesity, Class 2 Body mass index is 39.94 kg/m . - Follow with PCP for dietary and lifestyle modifications. . Any conditions listed below are present on admission unless otherwise specified. . Chronic Diastolic Heart Failure - HFpEF, will resume GDMT when hemodynamics allow Kevon Lyon MD Agent Based Modeler, Clinical Division of General Internal Medicine * Ralph Shafer, - 05/11/2024 11:48 AM EST NEPHROLOGY INPATIENT FOLLOW UP NOTE Reason for Consultation: JOSE Referring Provider: Kevon Lyon MD Hospital Day: 7 SUBJECTIVE Seen at bedside this morning. Drowsy but appears unchanged from previous. Downgraded from ICU yesterday. ASSESSMENT AND PLAN: 83F with PMH of CKD 4, neurogenic bladder, HTN, obesity s/p gastric bypass, TADEO, COPD, HFpEF, hypothyroidism, DVT/PE, chronic lymphedema who [facility] after she presented with AMS and found to have status epilepticus. Hospital course c/b acute respiratory failure requiring intubation and JOSE requiring DOOR TO DOOR SELLING AGENT for which nephrology is consulted. Impression: Oliguric JOSE on CKD 4 - improved JOSE likely due to ischemic and septic ATN due to septic shock Azotemia Hypokalemia Hypomagnesemia Hypocalcemia Macrocytic anemia AMS Septic shock (shock resolved) Acute respiratory failure s/p intubation Urine sediment (05/05/24): Dissolving granular casts, CaOx monohydrate crystals, WBCs, RTECs, debris PLAN Would hold diuresis given worsening hypernatremia, hypokalemia, hypomag Increase her free water flushes to 200cc q4h Recheck chem panel in PM Replace K Replace Mag No urgent indication for DOOR TO DOOR SELLING AGENT Accurate Is/Os Avoid nephrotoxins as able These recommendations are not finalized until signed by an attending staff physician. Thank you for allowing us to participate in the care of this patient. Plan discussed with attending. Please call with any questions or concerns. Please contact us via web-exchange - Nephrology - General Consults Fellow. For urgent/stat calls 5pm to 7am or all day on the weekend, please page the on- call Neph fellow on [email or web address]. Joao Shafer DO Clinical Nephrology Fellow, PGY-5 Pager [phone] OBJECTIVE Vitals: BP 124/60 (BP Location: Right arm, BP Position: Lying) Pulse 76 Temp 97.8 F (36.6 C) (Oral) Resp 16 Ht 1.651 m (5' 5) Wt 108.9 kg (240 lb) SpO2 94% BMI 39.94 kg/m Smoking Status Unknown I/O last 3 completed shifts: In: 1125.7 [I.V.:23.7; NG/GT:1060; IV Piggyback:42] Out: 2250 [Urine:2250] Physical Examination: Constitutional: drowsy, comfortable appearing Chest: Coarse and diminished throughout Cardiovascular: Regular Abdomen: Soft, non-tender, +distended Extremities: Warm, well perfused. + peripheral edema, +RUE swelling Skin: No rash Access: None Scheduled Medications apixaban 10 mg Per NG tube Q12H Followed by [START ON 05/17/2024] apixaban 5 mg Per NG tube Q12H carveDILOL 6.25 mg Per NG tube Q12H lacosamide 100 mg Intravenous Q12HNS [START ON 05/12/2024] Levothyroxine 125 mcg Per NG tube Before BKF Magnesium sulfate 4 g Intravenous Once ProSource TF 1 Package Nasogastric Daily vitamin B complex/vitamin C/folic acid (NEPHRONEX) 5 mL Per NG tube Daily Water liquid (free water) 30 mL Per NG tube Q4H Nepro/CarbSteady 35 mL/hr (05/11/24 0644) Relevant Data: Lab Results Component Value Date SODIUM 146 (H) 05/11/2024 POTASSIUM 2.8 (LL) 05/11/2024 CHLORIDE 118 (H) 05/11/2024 CO2 19 (L) 05/11/2024 BUN 41 (H) 05/11/2024 CREATSERUM 1.60 (H) 05/11/2024 GLUCOSE 64 (L) 05/11/2024 Lab Results Component Value Date WBC 10.52 05/11/2024 HGB 8.0 (L) 05/11/2024 HCT 27.1 (L) 05/11/2024 PLATELET 198 05/11/2024 MCV 102.3 (H) 05/11/2024 Lab Results Component Value Date CALCIUM 7.4 (L) 05/06/2024 PHOSPHORUS 2.8 05/11/2024 Cosigned by Evans Quinonez MD at 05/11/2024 12:26 PM EST Associated attestation - Evans Carlos MD - 05/11/2024 12:26 PM EST Renal Attending Attestation: I have seen and examined this patient personally on 05/11/2024. I re-interviewed the patient and reviewed the medical records. I have independently verified Dr. Shafer's history and physical examination findings and I agree with his assessment and plan with my edits added. I discussed the case with him and supervised the medical decision making. Patient with JOSE on CKD2/2 sepsis. Experiencing renal recovery and electrolyte wasting. Hypernatremic, hypokalemi and hypomagnesemic. Excellent UOP yesterday and negative over 1L. Still mild hypervolemia but mostly third spaced. Hold Lasix today and focus on electrolyte replacement. Increase free water flushes as below. No need for DOOR TO DOOR SELLING AGENT. Will follow. Evans Cornejo MD [phone] operator Division of Nephrology * Adriana Campoverdeool, PT - 05/11/2024 10:40 AM EST Acute Physical Therapy Treatment Prior Gross Functional Mobility: independent Current AM-PAC score(s): CURRENT AM-PAC Mobility Raw Score: 6 Based on the above AM-PAC score(s) and PT clinical judgment, patient is a good candidate for discharge to Group Home Facility Barriers to discharge home: Patient needs assistance with functional mobility, Patient needs assistance with IADLs (see note below), Cognitive impairments that impact safety (see note below), Lack ofsupervision necessary to mitigate fall risk, Patient needs assistance with self-care for medical condition (see note below), Patient needs assistance with medication management Mobility equipment available at home: ADL equipment available at home: Equipment needed for discharge: to be determined Current therapy frequency recommendation in acute: PT Therapy Frequency: 5 times a week Activity Recommendations for outside of rehab session: chair mode or paulo OOBTC Precautions and Weightbearing Status: Existing Precautions/Restrictions: fall (BENITA; HOB at least 30 degrees) Tube feed, Telemetry Patient Safety Communication Prior to Visit: Nursing Subjective: pt supine, agreeable to activity Pain: General Pain Documentation (Adult, OB, Peds) Presence of Pain: denies pain/discomfort Presence of Pain Score (Auto-calculated): 0 Objective/Observation: Vitals/Vitals Responses to Treatment: no adverse reaction to session O2 Device: room air Cognition Overall Cognitive Status: Impaired Arousal/Alertness: Delayed responses to stimuli Orientation Level: Oriented to person, Oriented to place (2002 despite cues) Following Commands: Follows one step commands with increased time, Follows one step commands with repetition (delayed processing) Safety Judgment: Decreased awareness of need for safety, Decreased awareness of need for assistance Awareness of Errors: Decreased awareness of errors Cognition Comments: cues for sequencing and safety; delayed processing Balance: Sitting Balance Static Sitting-Level of Assistance: Moderate assistance Dynamic Sitting-Level of Assistance: Maximum assistance Skilled Rationale: Verbal cues, Hand placement, Positioning, Facilitate anterior shift, Full extension to upright positioning/posture, Finding/maintaining midline positioning, Upright gaze/neck extension, Technique of activity Sitting Balance Skilled Intervention/Details: tolerated sitting EOB 8+ minutes with difficulty achieving/maintaining midline posture with R side lean noted; limited ability to weight shift anteriorlywhen posterior support removed; quick onset fatigue noted Mobility Assessment/Intervention: Rolling/Turning Mobility [place] Level: Rolling/Turning: dependent (less than 25% patient effort) Physical Assist: Rolling/Turnin person assist Bed Features/Set-up: Rolling/Turning: Flat, Friction reducing device Skilled Rationale: Verbal cues, Sequencing, Positioning, Technique of activity Skilled Intervention/Details: Rolling/Turning: bilateral rolling while performing laura-care; limited ability to facilitate with UEs Scooting Bridging Mobility [place] Level: Scooting/Bridging: dependent (less than 25% patient effort) Physical Assist: Scooting/Bridgin person assist Bed Features/Set-up: Scooting/Bridging: Flat, Friction reducing device Skilled Rationale: Positioning Supine to Sit Mobility [place] Level: Supine->Sit: dependent (less than 25% patient effort) Physical Assist: Supine->Sit: 2 person assist Bed Features/Set-up: Supine->Sit: Friction reducing device, Head of bed elevated Skilled Rationale: Verbal cues, Technique of activity Skilled Intervention/Details: Supine->Sit: limited ability to initiate with LEs or trunk Sit to Supine Mobility [place] Level: Sit->Supine: dependent (less than 25% patient effort) Physical Assist: Sit->Supine: 2 person assist Bed Features/Set-up: Sit->Supine: Flat Skilled Rationale: Positioning, Sequencing, Technique of activity Skilled Intervention/Details: Sit->Supine: completed return to supine with reverse log roll Transfer Assessment/Intervention: Sit to Stand Transfer [place] Level: Sit->Stand: not tested Outcome Score(s): [facility] Basic Mobility Inpatient Short Form Turning over in bed: 1 - Total Assistance Moving from lying on back to sittin - Total Assistance Moving to and from bed to chair: 1 - Total Assistance Sitting/standing from chair: 1 - Total Assistance Walk in hospital room: 1 - Total Assistance Climbing 3-5 steps with a railin - Total Assistance CURRENT [facility] Mobility Raw Score: 6 CURRENT [facility] Mobility Functional Limitation: 100.00% Impaired in Basic Mobility Assessment & Plan: Mari Lopez is making slow incremental progress toward transfer goals with decreased endurance and balance limiting ability to sit EOB and progress activity; pt continues to require heavy two person assist for bed mobility/transfers and will benefit from continued PT services during admission to reduce risk for further deconditioning Patient Instruction/Education this session: Learners: Patient Education provided: Safety, Role of this discipline, Positioning, Plan of care Teaching method: Verbal Education/Instruction Learner response: Needs review Plan for next session: progress sitting tolerance/balance Acute PT Goals Plan of Care by Adriana Lima PT at 05/11/2024 10:40 AM Version 1 of 1 Problem: PT - General Goals Goal: Supine <-> Sit Transfers - Patient will perform supine to/from sit transfers with minimal assistance and with use of hospital bed features in order to improve functional mobility and safety. Outcome: Progressing Goal: Sitting Endurance/Balance - Patient will perform seated balance tasks for 10 minutes with independence and no UE support while maintaining an RPE of less than 5/10 to improve endurance and safety with seated tasks. Outcome: Progressing Goal: Other - Pt will answer yes/no questions correctly and follow one-step commands >95% of thetime without verbal cueing to reflect improvements in cognition/arousal/attention in order to maximize participation in therapy sessions. Outcome: Progressing PT treatment consisted of the following to progress towards the above goal(s): PT Evaluation and Treatment Time Therapeutic Activity Time Entry: 31 Treating Therapist: Adriana Lima PT Additional Details: PT Co-Eval/Treatment Information Co-evaluation/co-treatment performed?: Yes, simultaneous billable skilled care was necessary due tomedical complexity and functional deficits Other discipline: OT Rationale for need to co-eval/treat: postural control, cognition Co-treatment goal focus: balance, mobility, transfer, endurance Patient location at end of session: bed with head of bed elevated, lines intact Alarms on at end of session: bed alarm Needs in reach. Time In: 1009 Time Out: 1040 Total Visit Time: 31 minutes Total Treatment Time (skilled, billable minutes): 31 minutes Upon discontinuation of Acute Care Physical Therapy Services or patient discharge from the hospitalthis note represents the current Physical Therapy Discharge Summary. * Javed Sanchez, OT - 05/11/2024 10:11 AM EST Acute Occupational Therapy Treatment Prior Gross Functional Mobility: Current AM-PAC score(s): CURRENT AM-PAC Activity Raw Score: 7 Based on the above AM-PAC score(s), and OT clinical judgment, discharge destination recommendation is: Group Home Facility Barriers to discharge home: Patient needs assistance with functional mobility, Patient needs assistance with ADLs, Patient needs assistance with IADLs (see note below), Patient needs assistance with medication management, Patient needs assistance with self-care for medical condition (see note below), Cognitive impairments that impact safety (see note below), Lack of supervision necessary to mitigate fall risk Mobility equipment available at home: ADL equipment available at home: Equipment recommendations for discharge: to be determined Equipment issued: Current therapy frequency recommendation(s) in acute: 5 times a week Precautions and Weightbearing Status: OT Existing Precautions/Restrictions: fall Telemetry, Tube feed Patient Safety Communication Prior to Visit: Nursing Subjective: Pt agreeable to sit eob Pain: General Pain Documentation (Adult, OB, Peds) Presence of Pain: denies pain/discomfort Presence of Pain Score (Auto-calculated): 0 Comfort/Acceptable General Pain Level/Goal: 0 DVPRS (Defense and Veterans Pain Rating Scale) DVPRS: Rest: 0- no pain DVPRS: Activity: 0- no pain Objective/Observation: Vitals/Vitals Responses to Treatment: WFL O2 Device: room air Cognition Overall Cognitive Status: Impaired Arousal/Alertness: Appropriate responses to stimuli Orientation Level: Oriented to person, Oriented to place, Oriented to time (w/ CUES) Following Commands: Follows multistep commands with repetition, Follows multistep commands with increased time Safety Judgment: Decreased awareness of need for safety, Decreased awareness of need for assistance Awareness of Errors: Assistance required to correct errors made, Assistance required to identify errors made Deficits: Decreased awareness of deficits Attention Span: Attends with cues to redirect Memory: Decreased short term memory, Decreased recall of recent events Problem Solving: Assistance required to implement solutions, Assistance required to generate solutions, Assistance required to identify errors made Cognition Comments: Pt continues to require cues and A for safety, insight, and awareness ADL Assessment/Intervention: Grooming Assistance: Maximal Grooming Location: edge of bed Grooming Deficit: Increased time to complete, Generalized weakness, Activity tolerance, Balance, Brushing hair Grooming Skilled Rationale (Verbal/Tactile/Visual/Demonstration): Facilitate positioning, Facilitate postural control, Technique of activity, [id number] assist Grooming Intervention/Details: Increased A due to impaired UE's, balance, and strength LE Dressing Assistance: Total LE Dressing Location: bed level LE Dressing Deficit: Don/doff L sock, Don/doff R sock LE Dressing Skilled Rationale (Verbal/Tactile/Visual/Demonstration): Facilitate positioning, Facilitate postural control, Technique of activity Toilet Assistance: Total Toileting Location: other, see comments (incontinent) Toileting Deficit: Balance, Grab bar use, Clothing management up, Clothing management down, Perineal hygiene, Bowel incontinence, Bladder incontinence, Increased time to complete Toilet Skilled Rationale (Verbal/Tactile/Visual/Demonstration): Cues for increased safety, Technique of activity, Facilitate postural control, Facilitate positioning Extremity Assessments: See OT Evaluation flowsheet for Extremity Measurement updates. Balance: Sitting Balance Static Sitting-Level of Assistance: Moderate assistance Dynamic Sitting-Level of Assistance: Maximum assistance Skilled Rationale: Positioning, Hand placement, Verbal cues, Finding/maintaining midline positioning, Full extension to upright positioning/posture, Technique of activity, Initiation and execution oftask, Cues for increased safety Sitting Balance Skilled Intervention/Details: Pt intermittently with static sitting able to maintain midline with increased number of cues without physical A but requires increased A typically Skin and Edema: Skin Integrity Skin Integrity Description: Redness, Swelling Edema Edema: present Location: Generalized Mobility Assessment/Intervention: Rolling/Turning Mobility [place] Level: Rolling/Turning: dependent (less than 25% patient effort) Physical Assist: Rolling/Turnin person assist Bed Features/Set-up: Rolling/Turning: Flat, Friction reducing device Skilled Rationale: Positioning, Hand placement, Verbal cues, Initiation and execution of task Skilled Intervention/Details: Rolling/Turning: x2 to either side Scooting Bridging Mobility [place] Level: Scooting/Bridging: dependent (less than 25% patient effort) Physical Assist: Scooting/Bridgin person assist Bed Features/Set-up: Scooting/Bridging: Flat, Friction reducing device Skilled Rationale: Positioning, Verbal cues, Initiation and execution of task Skilled Intervention/Details: Scooting/Bridging: x1 to HOB Supine to Sit Mobility [place] Level: Supine->Sit: dependent (less than 25% patient effort) Physical Assist: Supine->Sit: 2 person assist Bed Features/Set-up: Supine->Sit: Head of bed elevated, Use of bed rail, Friction reducing device Skilled Rationale: Positioning, Sequencing, Hand placement, Verbal cues, Finding/maintaining midline positioning Skilled Intervention/Details: Supine->Sit: x1 R side EOB with increased time and A for safety due to weakness Sit to Supine Mobility [place] Level: Sit->Supine: dependent (less than 25% patient effort) Physical Assist: Sit->Supine: 2 person assist Bed Features/Set-up: Sit->Supine: Flat Skilled Rationale: Positioning, Sequencing, Hand placement, Verbal cues, Initiation and execution of task Skilled Intervention/Details: Sit->Supine: x1 back from R side EOB Transfer Assessment/Intervention: Sit to Stand Transfer [place] Level: Sit->Stand: unable to assess Functional Mobility: Wheelchair Assessment Patient currently uses wheelchair?: No CURRENT [facility] Daily Activity Inpatient Short Form Putting on/Taking Off Lower Body Clothin - Total Assistance Bathin - Total Assistance Toiletin - Total Assistance Putting on/Taking Off Upper Body Clothin - Total Assistance Groomin - A Lot of Assistance Eatin - Total Assistance CURRENT [facility] Activity Raw Score: 7 CURRENT [facility] Activity Functional Limitation/Modifier: 92.44% Currently Impaired in Daily Activity- CM Assessment & Plan: Pt agreeable to skilled therapy at time of arrival with the need for continued A for decreased strength and stability for functional transfers, sitting EOB, and ADLs. Patient Instruction/Education this session: Learners: Patient Education provided: Bed mobility, Functional transfers, Plan of care, Positioning, Safety Plan for next session: EOB sitting ADLs Acute OT Goals Plan of Care by Javed Sanchez OT at 05/11/2024 10:11 AM Version 1 of 1 Problem: OT - ADLs Goal: Upper Body Dressing - Patient will complete upper body dressing task edge of bed with minimalassistance using adaptive equipment/compensatory strategies as needed for improved ability to complete self-care activities. Outcome: Ongoing Goal: Grooming - Patient will complete grooming edge of bed with minimal assistance for improved ability to safely complete ADLs. Outcome: Ongoing Problem: OT - Transfers Goal: Transfers Sit/Stand - Patient will demonstrate good safety awareness during sit to/from standfunctional transfer with minimal assistance and of 2 people and least restrictive device to demonstrate safe functional transfers. Outcome: Ongoing Problem: OT - Balance Goal: Balance - Seated - Patient will perform 15+ minutes of functional task in sitting with supervision and good balance to promote safety during self-care activities. Outcome: Ongoing Problem: OT - Strength/ROM Goal: Strength/ROM ADL Participation - Patient will participate in UE exercise program with minimalassistance to prevent deconditioning while in hospital and to max UE ROM/Coordination/strength for ADLs. Outcome: Ongoing Problem: OT - Cognition Goal: Cognition Simple ADL - Patient will demonstrate improved cognition, completing simple ADL task for 10+ minutes with no greater than min cues required to maintain attention. Outcome: Ongoing OT treatment consisted of the following to work and progress towards the above goal(s): OT Evaluation and Treatment Time Self Care/Home Management (ADLs) Time Entry: 14 Therapeutic Activity Time Entry: 15 Treating Therapist: Javed Sanchez OT Additional Details: OT Co-Eval/Treatment Information Co-evaluation/co-treatment performed?: Yes, simultaneous billable skilled care was necessary due tomedical complexity and functional deficits Other discipline: PT Rationale for need to co-eval/treat: coordination, postural control, cognition Co-treatment goal focus: balance, mobility, transfer, endurance, self-care, cognition PPE used during patient interaction: gloves Patient location at end of session: bed with head of bed elevated Alarms on at end of session: bed alarm Needs in reach. Time In: 1011 Time Out: 1040 Total Visit Time: 29 minutes Total Treatment Time (skilled, billable minutes): 29 minutes Upon discontinuation of Acute Care Occupational Therapy Services or patient discharge from the hospital this note represents the current Occupational Therapy Discharge Summary. * Jamaal Khalil MD - 05/11/2024 7:24 AM EST Internal Medicine Progress Note Patient: Mari Lopez, 1940, [id number] Physician: Jamaal Khalil MD, PGY1, GM8 service Subjective: Pt seen and evaluated this morning at bedside. Pt reports sore throat but doesn't feel like a cold.Overall she reports feeling much better than yesterday. She reports concern about swelling in her upper extremities. Team informed patient that the swelling may happen in the setting of being in the hospital and receiving fluids. Denies fever, chills, cough, flu symptoms. Assessment/Plan: Mari Lopez is a 83 y.o. female HTN, hypoparathyroidism, hypothyroidism, BAYRON, gastric bypass (2003), CKD stage 4, HFpEF, and TADEO. Initially admitted to MICU for status epilepticus now transfered to [facility]. Today's Updates: - 10 beat run of VT, hypokalemic and hypomag, s/p repletion - Holding diuresis - Sore throat, given phenol spray - Increase her free water flushes to 200cc q4h - TTE ordered - CITY PLANNING TEACHER consulted for speech and swallow eval, consider transition from TF to PO 10 beat run of VT - likely in s/o electrolyte abnormalities. - Start Coreg 6.25 BID - TTE ordered - replete lytes and recheck Concern for status epilepticus, stable EEG at OSH with GPDs raising concern for status. MRI Brain w/wo 05/06 with small focus of abnormal signal in the medial right parietal lobe: Artifact vs. postictal changes.CTH without acute finding on05/05. LP 05/05 with opening pressure 23, no positive findings, S/p meningitis coverage with ampicillin, acyclovir, rocephin. No seizures since arrival to [facility]. - Neurology consulted and following - Scheduled Vimpat given renal function - Follow up in the Neurology clinic in 2-3 months Hypoxemic Respiratory failure, improved Post extubation stridor Intubated for airway protection at OSH given c/f status and extubated here on 05/08. Completed 24 hours of dexamethasone 6mg Q6 for post extubation stridor - now weaned to RA - CXR 05/08 without acute findings - PRN guaifenesin for cough ordered - Spot diuresis, goal net even to 500mL negative Acute blood loss on chronic anemia, stable Macrocytic anemia Acute anemia likely due to DOOR TO DOOR SELLING AGENT in the setting of acute illness and anemia of chronic disease /2 CKD - No S/S of active bleeding - iron studies normal - Transfuse goal Hgb > 7 Sepsis, improving E. Coli UTI Urine positive for E. Coli at OSH. Now s/p several courses of abx - ceftriaxone (05/05-05/10)acyclovir(05/05-05/07), levaquin (-05/05) vancomycin (05/05-05/06) ampicillin (05/05-05/06) - S/p levophed in MICU - Sputum, blood, and CSF culture 05/05 with no acute findings, santillan cultured again on 05/08 given fever - 05/09 Bcx NGTD - Cdiff PCR negative - 05/08 LRCX light growth common oropharyngeal microbes - daily CBC Acute provoked DVT in the left internal jugular vein 05/08 CVC placement, line since removed - transitioned heparin gtt to eliquis on 05/10 JOSE on CKD stage 4, non-oliguric JOSE likely due to ischemic and septic ATN due to septic shock. Improving renal function. Required renal replacement during MICU stay for renal clearance. Now making good urine with prn lasix.. Serum creatinine 1.5-1.6 for a recent baseline. HD 05/06 for clearance, 5 hours PIRRT in the morning of 05/07/24 and stopped d/t filter clot. HD line since removed. - Followings Dr. Gilmore (health and fitness instructor) every 6 months - Nephrology consulted, appreciate recs regarding ongoing diuresis - Rec increase free water flushes to 200cc q4h - LUE dupplex done given large clot pulled out from HD line - daily chem Acute on chronic HFpEF - Renal function and hemodynamics currently preclude HFpEF GDMT - can consider folding back in as she improves - spot dose lasix for goal even to -500mL Resolved hospital problems: Frequent PVC's bigeminy - resolved Likely secondary to RIJ placement on 05/05 at OSH. Resolved after removal of CVC - Daily chemistry - Goal K >4, Mg > 2, Phos > 2.5 Ileus - resolved 05/05 Kub mild bowel gas distention of small bowel, now having BM - tolerating tube feeds at goal Chronic problems: HTN - Hold lisinopril given JOSE on CKD Hypothyroidism - Continue home levothyroxine Complexity. Hypokalemia - Continue to monitor and replete. Hypernatremia - Secondary to fluid shifts. Monitor. Hypomagnesemia - Continue to monitor and replete. Hypocalcemia - Continue to monitor and replete. Obesity, Class 2 Body mass index is 39.94 kg/m . - Follow with PCP for dietary and lifestyle modifications. . Any conditions listed below are present on admission unless otherwise specified. . DVT PPX: eliquis Code Status: Full Code Disposition: Transferred to [facility], will likely go to [facility] when medically cleared Discussed with team and attending on rounds. Jamaal Khalil MD PGY1 [facility] 05/11/24 Hospital Course: On 05/01/24 EMS transferred patient to [facility] and then she became non responsiveand hypotensive requiring norepinephrine. EEG noted GPDs and neurology was consulted and reviewed EEG who believed it met criteria status epilepticus. Patient was transferred to [facility] on 05/04 for further neurological medical management. She was admitted to the MICU for critical care management. Per H&P: The patient initially presented to the [facility] ED 05/01/24 with AMS found to havesevere metabolic derangements (pH 7.0, acute renal failure with uremia, hyperkalemia, acidosis). She was intubated, initiated on broad spectrum antibiotics, and placed on vasopressors after inadequate response to 30 cc/kg IVF resuscitation. CTH on admission reportedly normal (reports not available or included in transfer paperwork, [facility] radiology contacted to push images). An infectious workup wasnotable only for E. Coli UTI (blood cultures remained negative). The patient was noted to have possible seizure (right arm twitching) and spot EEG was obtained w/ findings concerning for possible status epilepticus. Per neurology recommendations, the patient received a keppra load and was placed oncEEG. Interval history: LP obtained on 05/05 which was negative, placed on empiric meningitis/encephalitis coverage from 05/05 to 05/07. cEEG discontinued on 05/06 and MRI brain acquired with motion artifact and possible abnormal cortical/subcortical FLAIR signal in right parietal lobe. Started renal replacement 05/06 for renalclearance only and weaned off of vasopressors. Renal replacement sessions complicated by frequent clotting and discontinued given evidence of renal recovery, urine production. MRI cspine acquired ue to concern for lack of extremity movement and bilateral upgoing babinski. Extubated 05/08 with subsequent laryngeal edema, received rac epi and decadron. Ultimately deemed stable for transfer to the floor on 05/09. Objective: Vitals: 05/11/24331 BP: 130/60 Pulse: 71 Resp: 15 Temp: 97.6 F (36.4 C) SpO2: 95% O2 Device: room air (05/11/24331) Flow (L/min): 1 (05/10/24 0000) Gen: chronically ill appearing, obese, appears comfortable HENT: NCAT, EOMI, MMM Cardio: RRR, normal S1/S2, no murmur Resp: no respiratory distress, no wheezes, no increased WOB, expiratory rhonchi present GI: soft, NT, ND, normal BS MSK: no joint swelling or erythema, scattered ecchymoses with evidence of swelling in R hand, chronic skin changes Ext: warm and well-perfused, 2-3+ pitting edema in BLE, evidence of previous skin graft overlying left knee Neuro: alert and oriented Data Review: WBC/Hgb/Hct/Plts: 10.52/8.0/27.1/198 (05/11 424) Na/K+/Phos/Mg/Ca: 146/2.8/2.8/1.2/-- (05/11 424) Bun/Creat/Cl/CO2/Glucose: 41/1.60/118/19/64 (05/11 424) VASC DUPLEX VENOUS EXTREMITY UPPER LEFT Final Result MRI SPINE CERVICAL WITH AND WITHOUT CONTRAST Final Result IMPRESSION: Multilevel degenerative spondylosis and degenerative disc disease results in moderate spinal canal stenosis at C5-6 and C6-7 with moderate bilateral neural foraminal stenosis. Visualization severely degraded by motion. Evaluation for spinal cord signal is significantly degraded by motion and Puga artifact. Cannot exclude myelopathic cord signal. No definite myelopathic cord signal is visualized in the cervical spine. Suspected Puga artifact artifact in the upper thoracic spine. CHEST 1 VIEW PORTABLE Final Result IMPRESSION: Patient is rotated to the left. Medial bibasilar opacities appear slightly improved or more likely atelectasis in the setting of improved lung volumes. Mild central bronchial wall cuffing can be seen with early edema or bronchitis. CHEST 1 VIEW PORTABLE Final Result IMPRESSION: No evidence of pneumomediastinum or subcutaneous gas on radiograph. ABDOMEN 1 VIEW PORTABLE Final Result IMPRESSION: Improved ileus without residual dilated small bowel. BRAIN WITH AND WITHOUT CONTRAST Final Result IMPRESSION: Motion artifact on multiple pulse sequences degrades evaluation. Questionable small focus of abnormal cortical/subcortical FLAIR signal in the medial right parietal lobe. This could be artifactual or potentially related to postictal changes. PLAIN FILM FOR NEURO EXAM Final Result IMPRESSION: No radiopaque foreign bodies to preclude MRI. Intrauterine contraceptive device in place. CHEST 1 VIEW PORTABLE Final Result IMPRESSION: 1. Right IJ CVC with tip terminating at the superior cavoatrial junction. No pneumothorax. 2. Interval retraction of the endotracheal tube which now terminates 3.6 cm above the level of the lisa, in good position. 3. Unchanged left basilar volume loss, otherwise lungs are clear. I personally viewed and interpreted these images and I have reviewed and approved this report. HEAD WITHOUT CONTRAST Final Result IMPRESSION: No acute cranial abnormality. ABDOMEN 1 VIEW PORTABLE Final Result IMPRESSION: Enteric tube in stomach. Similar visualized dilated small bowel loops. CHEST 1 VIEW PORTABLE Final Result IMPRESSION: 1. Endotracheal tube at the level the lisa, suggest adjustment. 2. Other support device as described above, in appropriate positions. 3. Left basilar volume loss. No pneumothorax. I, Marva Wallis MD have discussed the critical finding/s of endotracheal tube malposition with PRATIK ENNIS on 05/05/2024 9:59 AM. I personally viewed and interpreted these images and I have reviewed and approved this report. ABDOMEN 1 VIEW PORTABLE Final Result IMPRESSION: 1. Enteric tube projects over the stomach. 2. Mild gaseous distention of small bowel may reflect ileus. Cosigned by Kevon Lyon MD at 05/11/2024 5:59 PM EST Associated attestation - Kevon Lyon MD - 05/11/2024 5:59 PM EST Attending Addendum: This patient was discussed, examined, and evaluated with the resident physician on 05/11/2024. I haveindependently confirmed essential components of the medical history and the physical examination. Iagree with the above therapeutic plan and have edited the resident's note as appropriate: ASSESSMENT: Principal Problem: Status epilepticus Active Problems: Anemia (Low HGB) Renal disease (High Serum Creatinine) Thrombocytopenia (Low Platelets) Complexity. Hypokalemia - Continue to monitor and replete. Hypernatremia - Secondary to fluid shifts. Monitor. Hypomagnesemia - Continue to monitor and replete. Hypocalcemia - Continue to monitor and replete. Obesity, Class 2 Body mass index is 39.94 kg/m . - Follow with PCP for dietary and lifestyle modifications. . Any conditions listed below are present on admission unless otherwise specified. .Chronic Diastolic Heart Failure - HFpEF, will resume GDMT when hemodynamics allow Kevon Lyon MD Agent Based Modeler, Clinical Division of General Internal Medicine * Vy Hightower RN - 05/10/2024 3:22 PM EST Placement Plan Expected Discharge Date: 05/13/24 Referred Level of Care: IPR (per family request) Barriers: Medical readiness Current Referrals and Status 1. [facility] (reserved) The HCPOAs communicated with [facility] prior to sending the referral and pre- arranged the acceptance of the referral. The facility expressed a preference for the patient to be directed to their IPR program rather thanan SNF. The family has agreed with this decision. However, this CM explained that, based on the recommendations from PT/OT, the patient is not currently ready for IPR. The patient s readiness will be reassessed tomorrow. Despite this, since both the family and the facility are in agreement, the CM will make an effort to honor their preference and pursue the IPR option. SANTINO Mo, RN 10 MICU Clinical Manager Behavior (p) [phone] Available on secure chat * Vy Hightower RN - 05/10/2024 2:46 PM EST Reason for Consult: Discharge planning Consulted By: Medical team Level(s) of Care Discussed: SNF Patient and/or Survey Research Manager's Preferred Geographic Area for Discharge: [place] [id number] Patient and/or Survey Research Manager's Preference for Providers to Include? [facility] (preferred choice) 2. [facility] Patient and/or Survey Research Manager's Preference for Providers to Exclude? 1.N/A Patient and/or Survey Research Manager's Discussion: Discussed referral process with the patient and/or public health representative. Patient and/or public health representative isagreeable to have placement referral initiated. CM spoke with Primary HCPOA, Gonzalo, and 1st Alternative HCPOA, Alex. She will need ambulance transportation per HCPOAs' request CM went to the patient's room to update, but she was sleeping and the bedside RN stated that she glenys bit confused. SANTINO Mo, RN 10 MICU Clinical Manager Behavior (p) [phone] Available on secure chat * Jhonatan Horton MD - 05/10/2024 11:53 AM EST Nephrology Inpatient Follow up Note Assessment: 83F with PMH of CKD 4, neurogenic bladder, HTN, obesity s/p gastric bypass, TADEO, COPD, HFpEF, hypothyroidism, DVT/PE, chronic lymphedema who [facility] after she presented with AMS and found to have status epilepticus. Hospital course c/b acute respiratory failure requiring intubation and JOSE requiring DOOR TO DOOR SELLING AGENT for which nephrology is consulted. Oliguric JOSE on CKD 4 JOSE likely due to ischemic and septic ATN due to septic shock Acute respiratory failure, on mechanical ventilatoin UTI with E coli. Anemia Seizure disorder Acute encephalopathy Hypocalcemia with normal corrected calcium Hypovitaminosis D Plan/Recommendations: -no indications for DOOR TO DOOR SELLING AGENT today -would continue lasix -supportive care per ICU -other protective measures for the kidney: -have pharmacy assist with renal dosing of medications -avoid nephrotoxic medications and contrast if possible -maintain MAP > 65 -transfuse for Hgb < 7 -recommend low potassium, low phos, low protein diet -avoid hyperglycemia as able -avoid supratherapeutic INR/PTT to minimize the risk of anticoagulant-related nephropathy Jhonatan Horton MD Division of Nephrology Subjective/Interval History: Seen in room. Answering some questions but drowsy and confused. Denies chest pain or SOB. Objective: Physical Examination: BP 120/56 Pulse 69 Temp 98.6 F (37 C) Resp 20 Ht 1.549 m (5' 1) Wt 114.2 kg (251 lb 12.3oz) SpO2 96% BMI 47.57 kg/m Smoking Status Unknown I/O last 3 completed shifts: In: 1239.1 [NG/GT:1239.1] Out: 1300 [Urine:1300] Constitutional: drowsy, comfortable appearing Chest: Coarse and diminished throughout Cardiovascular: Regular Abdomen: Soft, non-tender, +distended Extremities: Warm, well perfused. + peripheral edema Skin: No rash Access: None Relevent Data: Temp: [98.4 F (36.9 C)-99.1 F (37.3 C)] 98.6 F (37 C) Pulse (Heart Rate): [67-81] 69 Resp Rate: [14-20] 20 BP: (92-188)/(46-84) 120/56 O2 Sat (%): [95 %-99 %] 96 % Intake/Output Summary (Last 24 hours) at 05/10/2024 1153 Last data filed at 05/10/2024 1136 Gross per 24 hour Intake 1354.75 ml Output 1300 ml Net 54.75 ml I/O last 3 completed shifts: In: 1239.1 [NG/GT:1239.1] Out: 1300 [Urine:1300] Nepro/CarbSteady 35 mL/hr (05/10/24 0800) apixaban 10 mg Oral Q12H Followed by [START ON 05/17/2024] apixaban 5 mg Oral Q12H furosemide 20 mg Intravenous Q8H lacosamide 100 mg Intravenous Q12HNS Levothyroxine 125 mcg Oral Before BKF ProSource TF 1 Package Nasogastric Daily vitamin B complex/vitamin C/folic acid (NEPHRONEX) 5 mL Per NG tube Daily Water liquid (free water) 30 mL Per NG tube Q4H Lab Results Component Value Date SODIUM 142 05/09/2024 SODIUM 140 05/09/2024 SODIUM 140 05/08/2024 SODIUM 137 05/07/2024 SODIUM 138 05/06/2024 Lab Results Component Value Date CHLORIDE 105 05/09/2024 CHLORIDE 104 05/09/2024 CHLORIDE 106 05/08/2024 CHLORIDE 106 05/07/2024 CHLORIDE 104 05/06/2024 Lab Results Component Value Date BUN 48 (H) 05/09/2024 BUN 35 (H) 05/09/2024 BUN 28 (H) 05/08/2024 BUN 24 05/07/2024 BUN 28 (H) 05/06/2024 Lab Results Component Value Date CREATSERUM 2.50 (H) 05/09/2024 CREATSERUM 2.66 (H) 05/09/2024 CREATSERUM 2.34 (H) 05/08/2024 CREATSERUM 2.11 (H) 05/07/2024 CREATSERUM 2.50 (H) 05/06/2024 Lab Results Component Value Date POTASSIUM 4.0 05/09/2024 POTASSIUM 4.1 05/09/2024 POTASSIUM 3.9 05/08/2024 POTASSIUM 4.0 05/08/2024 POTASSIUM 3.9 05/07/2024 Lab Results Component Value Date CO2 27 05/09/2024 CO2 27 05/09/2024 CO2 22 05/08/2024 CO2 24 05/07/2024 CO2 24 05/06/2024 Lab Results Component Value Date GLUCOSE 94 05/10/2024 MAGNESIUM 2.0 05/09/2024 MAGNESIUM 2.0 05/09/2024 Lab Results Component Value Date PHOSPHORUS 3.7 05/09/2024 PHOSPHORUS 3.8 05/09/2024 PHOSPHORUS 3.8 05/09/2024 Lab Results Component Value Date PH 7.47 (H) 05/05/2024 PCO2 27 (L) 05/05/2024 HCO3 20 (L) 05/05/2024 LACT 0.8 05/04/2024 Lab Results Component Value Date WBC 16.00 (H) 05/10/2024 WBC 18.44 (H) 05/09/2024 WBC 16.92 (H) 05/09/2024 HGB 8.4 (L) 05/10/2024 HGB 7.9 (L) 05/09/2024 HGB 8.8 (L) 05/09/2024 PLATELET 210 05/10/2024 PLATELET 161 05/09/2024 PLATELET 118 (L) 05/09/2024 Lab Results Component Value Date CALCIUM 7.4 (L) 05/06/2024 ICA 4.07 (L) 05/09/2024 [id number] 17.6 (L) 05/05/2024 Lab Results Component Value Date SPGRVTYUR 1.008 05/08/2024 GLUCOSEURINE Negative 05/08/2024 KETONESURINE Negative 05/08/2024 BLOODURINE Moderate (A) 05/08/2024 NITRITESURIN Negative 05/08/2024 LEUKOCESTUR Trace (A) 05/08/2024 WBCURINE 0 - 5 05/08/2024 RBCURINE >25 (A) 05/08/2024 BACTERIAURIN ABSENT 05/08/2024 Lab Results Component Value Date OSMOLALITY 309 (H) 05/09/2024 Lab Results Component Value Date PROTEINURINE 30 mg/dL (A) 05/08/2024 Lab Results Component Value Date ALT 11 05/04/2024 AST 23 05/04/2024 ALKPHOS 84 05/04/2024 BILITOTAL 0.5 05/04/2024 BILIDIRECT 0.1 05/04/2024 Lab Results Component Value Date ALBUMIN 2.4 (L) 05/04/2024 CPK 57 05/07/2024 TSH 12.332 (H) 05/05/2024 Lab Results Component Value Date LDH 265 (H) 05/07/2024 HAPTOGLOBIN 306 (H) 05/05/2024 RETIC 3.75 (H) 05/07/2024 RETICABS 0.0735 05/07/2024 FIBRINOGEN 426 (H) 05/07/2024 All Labs, imaging, and microbiology data reviewed * Ronn Barahona MD - 05/10/2024 11:02 AM EST CRITICAL CARE ATTENDING PHYSICIAN NOTE: Current Hospitalization: Admit Date: 05/04/2024 [facility] [place] Hospital LOS: 6 days Interval History from the last 24 hours: She arouses to voice, but is not verbal this morning. She is unable to communicate any symptoms There have been no other symptoms overnight. Current Medications: apixaban 10 mg Oral Q12H Followed by [START ON 05/17/2024] apixaban 5 mg Oral Q12H furosemide 20 mg Intravenous Q8H lacosamide 100 mg Intravenous Q12HNS Levothyroxine 125 mcg Oral Before BKF ProSource TF 1 Package Nasogastric Daily vitamin B complex/vitamin C/folic acid (NEPHRONEX) 5 mL Per NG tube Daily Water liquid (free water) 30 mL Per NG tube Q4H Infusion Medications: Nepro/CarbSteady 35 mL/hr (05/10/24 0650) PRN Medications: bisacodyl, guaiFENesin, hydrALAZINE, Ipratropium-albuterol, Senna Changes To Past Medical, Social, & Family History: None Physical Exam: Vital signs were Blood pressure 155/68, pulse 72, temperature 98.6 F (37 C), resp. rate 20, height 1.549 m (5' 1), weight 114.2 kg (251 lb 12.3 oz), SpO2 98%. Body mass index is 47.57 kg/m . Oxygen delivery: nasal cannula Mental status: sleepy, awakens to voice, but confused Respiratory effort: mildly labored Mouth: oral thrush absent Lungs: normal breath sounds bilaterally Heart: regular rate and rhythm, no murmurs, and no gallops Abdomen: soft, non-tender, normal bowel sounds Pedal edema: none Other: None Review Of Tests and Databases: Bun/Creat/Cl/CO2/Glucose: 48/2.50/105/27/94 (05/09 2355-05/10 1) Na/K+/Phos/Mg/Ca: 142/4.0/3.7/2.0/-- (05/09 2355) WBC/Hgb/Hct/Plts: 16.00/8.4/27.9/210 (05/10 650) Other notable labs: EEG from 08 May showed diffuse slowing I/O last 3 completed shifts: In: 1239.1 [NG/GT:1239.1] Out: 1300 [Urine:1300] Relevant microbiologic cultures: Remain negative to date. Relevant new radiographic test: Spinal MRI showed multilevel degenerative spondylosis and degenerative disc disease results in moderate spinal canal stenosis at C5-6 and C6-7 with moderate bilateral neural foraminal stenosis. Visualization severely degraded by motion. Evaluation for spinal cord signal is significantly degraded by motion and Puga artifact. Cannot exclude myelopathic cord signal. No definite myelopathic cord signal is visualized in the cervical spine. Suspected Puga artifact artifact in the upper thoracic spine. Impression/Plan: Altered mental status the setting of metabolic encephalopathy/delirium. Continue supportive measures. Acute hypoxemic respiratory failure, now extubated had some post extubation stridor which improved with steroids. Continue to wean oxygen JOSE on CKD. Status post dialysis. She is making urine. Continue diuresis. E coli UTI, completed antibiotic course Chronic left ventricular diastolic heart failure. Diuresis as above Hypocalcemia - Continue to monitor and replete. Obesity, Class 3 Body mass index is 47.57 kg/m . - Follow with PCP for dietary and lifestyle modifications. . Ronn Barahona MD, MSCI, FCCM, ATSF window caser Division of Pulmonary, Critical Care, and Sleep Medicine * Vy Hightower RN - 05/10/2024 10:28 AM EST Manager Behavior's Assessment and Summary: Overall Assessment: Improving respiratory failure. Ongoing neuro work up. Respiratory Status: On room air A) One intubation, extubated 05/08/24 Nutritional Support: [place] PT/OT Recommendations: SNF ([facility]) Barriers to Discharge: Medical readiness Following: Neurology, Nephrology Discharge Goals: Primary SNF. No discharge date Next Steps: Monitoring progress; will need SNF referral SANTINO Mo, RN 10 MICU Clinical Manager Behavior (p) [phone] Available on secure chat FYI: Reason for Admission: From OSH intubated and concern for seizures Prior to Admission: ADLs/IADLs (prior admission): Assisted Decision Making (prior admission): Independent DMEs: walker;rollator;shower seat;straight cane;stair lift;blood pressure monitor; incontinence supplies Summary: Lives at a house with roommate. * Ronn Barahona MD - 05/09/2024 1:38 PM EST CRITICAL CARE ATTENDING PHYSICIAN NOTE: Current Hospitalization: Admit Date: 05/04/2024 [facility] [place] LOS: 5 days Interval History from the last 24 hours: She denies pain. Denies shortness of breath. She was unable to communicate any other symptoms Therehave been no other symptoms overnight. Current Medications: [START ON 05/10/2024] cefTRIAXone 2 g Intravenous Q24H furosemide 40 mg Intravenous Once heparin 7,500 Units Subcutaneous Q8H 0800/1600/2200 lacosamide 100 mg Intravenous Q12HNS Levothyroxine 125 mcg Oral Before BKF ProSource TF 1 Package Nasogastric Daily vitamin B complex/vitamin C/folic acid (NEPHRONEX) 5 mL Per NG tube Daily Water liquid (free water) 30 mL Per NG tube Q4H Infusion Medications: Nepro/CarbSteady 35 mL/hr (05/09/24 1200) PRN Medications: bisacodyl, guaiFENesin, Ipratropium-albuterol, Senna, Sodium chloride (PF) Changes To Past Medical, Social, & Family History: None Physical Exam: Vital signs were Blood pressure 123/56, pulse 73, temperature 98.6 F (37 C), resp. rate 14, height 1.549 m (5' 1), weight 114.2 kg (251 lb 12.3 oz), SpO2 99%. Body mass index is 47.57 kg/m . Oxygen delivery: nasal cannula Mental status: awake but confused Respiratory effort: mildly labored Mouth: oral thrush absent Lungs: normal breath sounds bilaterally Heart: regular rate and rhythm, no murmurs, and no gallops Abdomen: soft, non-tender, normal bowel sounds Pedal edema: none Other: None Review Of Tests and Databases: Bun/Creat/Cl/CO2/Glucose: 35/2.66/104/27/139 (05/09 138) Na/K+/Phos/Mg/Ca: 140/4.1/3.8/2.0/-- (05/09 138-05/09 148) WBC/Hgb/Hct/Plts: 16.92/8.8/28.1/118 (05/09 138) Other notable labs: EEG from 08 May showed diffuse slowing I/O last 3 completed shifts: In: 406.5 [I.V.:74.6; NG/GT:220; IV Piggyback:111.8] Out: 2750 [Urine:2750] Relevant microbiologic cultures: Remain negative to date. Relevant new radiographic test: Spinal MRI showed multilevel degenerative spondylosis and degenerative disc disease results in moderate spinal canal stenosis at C5-6 and C6-7 with moderate bilateral neural foraminal stenosis. Visualization severely degraded by motion. Evaluation for spinal cord signal is significantly degraded by motion and Puga artifact. Cannot exclude myelopathic cord signal. No definite myelopathic cord signal is visualized in the cervical spine. Suspected Puga artifact artifact in the upper thoracic spine. Impression/Plan: Altered mental status the setting of metabolic encephalopathy/delirium. Continue supportive measures. Acute hypoxemic respiratory failure, now extubated had some post extubation stridor which improved with steroids. Continue to wean oxygen JOSE on CKD. Status post dialysis. She is making urine show will post diuresis. E coli UTI, complete antibiotic course tomorrow with ceftriaxone Chronic left ventricular diastolic heart failure. Diuresis as above Hypocalcemia - Continue to monitor and replete. Thrombocytopenia - Continue to monitor. Obesity, Class 3 Body mass index is 47.57 kg/m . - Follow with PCP for dietary and lifestyle modifications. . Ronn Barahona MD, MSCI, FCCM, ATSF window caser Division of Pulmonary, Critical Care, and Sleep Medicine * Fouzia Huizarels, PT - 05/09/2024 10:52 AM EST Acute Physical Therapy Evaluation Prior Gross Functional Mobility: Current AM-PAC score(s): CURRENT AM-PAC Mobility Raw Score: 6 Based on the above AM-PAC score(s) and PT clinical judgment, patient is a good candidate for discharge to Group Home Facility Barriers to discharge home: Patient needs assistance with functional mobility Mobility equipment available at home: ADL equipment available at home: Equipment needed for discharge: to be determined Current therapy frequency recommendation in acute: PT Therapy Frequency: 5 times a week Precautions and Weightbearing Status: Existing Precautions/Restrictions: fall, other (see comment) (delirium) Telemetry, Urinary catheter, Tube feed Patient Safety Communication Prior to Visit: (P) Nursing Subjective: Pt semi-recumbent on arrival. Initially lethargic, but improved arousal and command follow with onset of mobility. Pain: General Pain Documentation (Adult, OB, Peds) Presence of Pain: present: non-verbal indicator of pain/discomfort Pain Location: shoulder, left, shoulder, right CPOT (Critical-Care Pain Observation Tool) Facial Expression: grimacing Body Movements: absence of movements Muscle Tension: relaxed Vocalization (Extubated Patients): talking in normal tone or no sound CPOT Score (0-8): 2 Home Setting Residence: House Home Environment Details: Unable to obtain information from patient given cognitive deficits Previous Level of Function Prior Level of Function Details: Per patient, walks with 2WW at baseline Objective/Observation: Vitals/Vitals Responses to Treatment: Initially hypotensive w/ BP improving to 130's systolic EOB. No s/s of distress throughout. More responsive with mobility. O2 Device: nasal cannula Cognition Overall Cognitive Status: Impaired Arousal/Alertness: Inconsistent responses to stimuli Orientation Level: Oriented to person (Nods yes to hospital at end of session after being re-oriented to exact location) Following Commands: Follows commands 25-50% of the time, Follows one step commands with increased time, Follows one step commands with repetition Safety Judgment: Decreased awareness of need for assistance, Decreased awareness of need for safety Awareness of Errors: Decreased awareness of errors Deficits: Decreased awareness of deficits Attention Span: Difficulty attending to directions, Difficulty dividing attention Memory: Decreased short term memory, Decreased recall of recent events Problem Solving: Assistance required to identify errors made, Assistance required to generate solutions, Assistance required to implement solutions Cognition Comments: CAM +; delayed processing time and motor planning; answers questions via head nods, which do appear discriminatory; arousal and command follow improves with mobility Vision Screen Currently wearing corrective lenses: No Visual Impairments Observed?: No Speech Speech: other (see comments), word-finding difficulties (appears to attempt to talk, but non-verbalduring session; head nods for communication) Hearing Hearing: no gross deficits noted Extremity Assessments: RLE Assessment RLE Assessment: PROM WFL, AROM Impaired, Strength Impaired Right LE Assessment Details: 3-/5 LAQ EOB LLE Assessment LLE Assessment: PROM WFL, Strength Impaired Left LE Assessment Details: 4-/5 LAQ EOB Sensation Sensation Comments: responds to tactile stimuli Mobility Assessment: Rolling/Turning Mobility [place] Level: Rolling/Turning: dependent (less than 25% patient effort) Physical Assist: Rolling/Turnin person assist Bed Features/Set-up: Rolling/Turning: Flat Skilled Rationale: Sequencing, Hand placement, Verbal cues, Technique of activity, Initiation and execution of task, Cues for increased safety Skilled Intervention/Details: Rolling/Turning: X1 to L/R sideylying to complete dependent pericare and pad exchange; limited to no initiation despite extensive cueing Scooting Bridging Mobility [place] Level: Scooting/Bridging: dependent (less than 25% patient effort) Physical Assist: Scooting/Bridgin person assist Bed Features/Set-up: Scooting/Bridging: Flat Skilled Rationale: Sequencing, Hand placement, Verbal cues, Technique of activity, Initiation and execution of task, Cues for increased safety Skilled Intervention/Details: Scooting/Bridging: X2 to HOB for optimal positioning Supine to Sit Mobility [place] Level: Supine->Sit: dependent (less than 25% patient effort) Physical Assist: Supine->Sit: 2 person assist Bed Features/Set-up: Supine->Sit: Head of bed elevated Skilled Rationale: Sequencing, Hand placement, Verbal cues, Technique of activity, Initiation and execution of task, Cues for increased safety Skilled Intervention/Details: Supine->Sit: Poor initiation; assist for LE advancement and to push trunk to upright Sit to Supine Mobility [place] Level: Sit->Supine: dependent (less than 25% patient effort) Physical Assist: Sit->Supine: 2 person assist Skilled Rationale: Sequencing, Hand placement, Verbal cues, Technique of activity, Initiation and execution of task, Cues for increased safety Skilled Intervention/Details: Sit->Supine: Fair initiation with trunk; assist for controlled descent and LE advancement Balance: Sitting Balance Static Sitting-Level of Assistance: Standby Dynamic Sitting-Level of Assistance: Contact guard Sitting Balance Skilled Intervention/Details: Pt maintained EOB sitting ~15 min this date, progressing to SBA with facilitation of hip placement; unable to reach for ADL items 2/2 pain and weakness; at times with posterior lean that she is able to correct with core activation and cueing for anterior weight shift Standing Balance Standing Balance Skilled Intervention/Details: Not tested Transfer Assessment: Sit to Stand Transfer [place] Level: Sit->Stand: not tested Gait/Functional Mobility: Wheelchair Assessment Patient currently uses wheelchair?: No Outcome Score(s): CURRENT [facility] Basic Mobility Inpatient Short Form Turning over in bed: 1 - Total Assistance Moving from lying on back to sittin - Total Assistance Moving to and from bed to chair: 1 - Total Assistance Sitting/standing from chair: 1 - Total Assistance Walk in hospital room: 1 - Total Assistance Climbing 3-5 steps with a railin - Total Assistance CURRENT [facility] Mobility Raw Score: 6 CURRENT [facility] Mobility Functional Limitation: 100.00% Impaired in Basic Mobility Interventions: Intervention 1 Intervention Name: Toileting Details: Pt w/ extensive bowel incontinence EOB; performed dependent pericare w/ therapis provided max cueing for technique and sequencing of rolling Intervention 2 Intervention Name: Delirium Prevention Details: Highly recommend implementation of delirium prevention strategies: -All staff should introduce themselves and their role -Use calm, concise instructions and explanations -Use patient's name -Re-orient to daily events, upcoming holidays, presence of visitors, and the weather -Encourage family pictures and familiar objects in the room -Supply current calendar and clock in the room -Encourage friends and family to visit regularly -Keep window blinds open during the day and closed during the night -Encourage patient to look out the window to see what time of day it is -Engage in meaningful conversation to simulate logic and memory -Offer a mirror during grooming -Encourage a self care activity such as brushing teeth, washing face, or combing hair Assessment & Plan: Patient was admitted for s/p epilepticus requiring intubation and seen for therapy evaluation related to above to evaluate for fall risk and to assist with discharge planning. Exam findings include impairments in: Strength, ROM (range of motion), Balance, Posture, Pain, Transfers, Gait/Locomotion, Edema, Skin integrity, Cognition/Arousal/Attention, Aerobic capacity/endurance. These impairments contribute to functional limitations including Ambulation/locomotion pain, Decr eased ambulation distance/endurance, Difficulty stair climbing/descent, Increased fall risk, Difficulty ambulating on uneven/dynamic surfaces, Limited standing tolerance, Difficulty with bed mobility, Difficulty with transfers. Current clinical presentation is Evolving - changing/inconsistent clinical characteristics (Moderate). Patient history factors impacting Plan Of Care include PMH. Patient will benefit from skilled physical therapy to address these impairments, functional limitations, and participation restrictions and has good rehab potential to achieve therapy goals. Planned Therapy Interventions: balance training, bed mobility training, endurance, functional activity tolerance, gait training, neuromuscular re- education, postural re-education, strengthening, transfer training Patient Instruction/Education this session: Learners: Patient Education provided: Balance training, Discharge recommendations, Role of this discipline, Safety Teaching method: Verbal Education/Instruction Learner response: No evidence of learning Learning considerations: Cognition Plan for next session: Initiate functional transfers as tolerated; cognitive reorientation Acute PT Goals Plan of Care by Fouzia Hernández PT at 05/09/2024 10:52 AM Version 1 of 1 Problem: PT - General Goals Goal: Supine <-> Sit Transfers - Patient will perform supine to/from sit transfers with minimal assistance and with use of hospital bed features in order to improve functional mobility and safety. Outcome: Ongoing Goal: Sitting Endurance/Balance - Patient will perform seated balance tasks for 10 minutes with independence and no UE support while maintaining an RPE of less than 5/10 to improve endurance and safety with seated tasks. Outcome: Ongoing Goal: Sit <-> Stand Transfers - Patient will perform sit to/from stand transfers with minimalassistance and of 2 people and least restrictive device in order to improve functional mobility andsafety. Outcome: Ongoing Goal: Stand/Squat Pivot Transfers - Patient will perform stand pivot transfer to/from bed/chair/commode with minimal assistance and of 2 people and least restrictive device in order to improve functional mobility and safety. Outcome: Ongoing Goal: Strength - Patient will demonstrate understanding of exercise program. Outcome: Ongoing Goal: Other - Pt will answer yes/no questions correctly and follow one-step commands >95% of thetime without verbal cueing to reflect improvements in cognition/arousal/attention in order to maximize participation in therapy sessions. Outcome: Ongoing PT treatment consisted of the following to progress towards the above goal(s): PT Evaluation and Treatment Time PT Evaluation (Moderate) Time Entry: 31 Therapeutic Activity Time Entry: 10 Evaluating Therapist: Fouzia Hernández PT Additional Details: PT Co-Eval/Treatment Information Co-evaluation/co-treatment performed?: Yes, simultaneous billable skilled care was necessary due tomedical complexity and functional deficits Other discipline: OT Rationale for need to co-eval/treat: postural control, cognition, alertness/arousal Evaluation Complexity Components History: High (3 personal factors and/or comorbidities) Body Systems Review: Moderate (Addressing a total of 3 or more elements) Clinical Presentation: Evolving - changing/inconsistent clinical characteristics (Moderate) Clinical Decision Making Complexity: Moderate Time In: 1052 Time Out: 1133 Total Visit Time: 41 minutes Total Treatment Time (skilled, billable minutes): 41 minutes PPE used during patient interaction: gloves Patient location at end of session: bed with head of bed elevated, lines intact Alarms on at end of session: bed alarm, RN aware Needs in reach. Upon discontinuation of Acute Care Physical Therapy Services or patient discharge from the hospitalthis note represents the current Physical Therapy Discharge Summary. * Katina Murillo OT - 05/09/2024 10:52 AM EST Acute Occupational Therapy Evaluation Prior Gross Functional Mobility: Current AM-PAC score(s): CURRENT AM-PAC Activity Raw Score: 6 CURRENT AM-PAC Cognitive Raw Score: 6 Based on the above AM-PAC score(s) and OT clinical judgment, discharge destination recommendation is: Group Home Facility Barriers to discharge home: Patient needs assistance with functional mobility, Patient needs assistance with ADLs, Patient needs assistance with IADLs (see note below), Patient needs assistance with medication management, Patient needs assistance with self-care for medical condition (see note below), Cognitive impairments that impact safety (see note below), Lack of supervision necessary to mitigate fall risk Mobility equipment available at home: ADL equipment available at home: Equipment recommendations for discharge: to be determined Current therapy frequency recommendation(s) in acute: 5 times a week Activity Recommendations for outside of rehab session: bed in chair mode; delirium prevention Precautions and Weightbearing Status: OT Existing Precautions/Restrictions: fall, supplemental oxygen Urinary catheter, Telemetry, Tube feed Patient Safety Communication Prior to Visit: Nursing Subjective: Pt supine in bed upon arrival; inconsistent responses to simple yes/no questions, however, improvedarousal in sitting Pain: General Pain Documentation (Adult, OB, Peds) Presence of Pain: present: non-verbal indicator of pain/discomfort Pain Location: shoulder, left, shoulder, right CPOT (Critical-Care Pain Observation Tool) Facial Expression: grimacing Body Movements: absence of movements Muscle Tension: relaxed Vocalization (Extubated Patients): talking in normal tone or no sound CPOT Score (0-8): 2 Home Setting Residence: House Home Environment Details: Unable to obtain information from patient given cognitive deficits Previous Level of Function Prior Level of Function Details: Per patient, walks with 2WW at baseline IADL History IADL Comments: unable to obtain due to altered cognition Objective/Observation: Vitals/Vitals Responses to Treatment: Vitals were monitored throughout the session; VSS with activity O2 Device: nasal cannula Flow (L/min): 1 Vision Screen Currently wearing corrective lenses: No Clinical Observations: poor visual tracking in supine Visual Impairments Observed?: No Speech Speech: other (see comments) (attempts to verbalize minimally at the end of the session. non-verbalthroughout session with gestures to communicate) Hearing Hearing: no gross deficits noted Cognition Overall Cognitive Status: Impaired Arousal/Alertness: Inconsistent responses to stimuli Orientation Level: Oriented to person (nods head yes to hospital to assess recall of place) Following Commands: Follows one step commands with increased time, Follows one step commands with repetition, Follows commands 25-50% of the time Safety Judgment: Decreased awareness of need for assistance, Decreased awareness of need for safety Awareness of Errors: Decreased awareness of errors Deficits: Decreased awareness of deficits Attention Span: Difficulty attending to directions ADLs: ADL Anticipated Performance (ADLs not directly observed this session): Eating, Bathing, LE Dressing Eating Assistance: Total Grooming Assistance: Total Grooming Location: bed level, edge of bed Grooming Deficit: Increased time to complete, Activity tolerance, Generalized weakness, Balance, Retrieval of items, Maintain grasp of items, Wash/dry face, Brushing hair, Attention, Initiation, Sequencing, Problem solving Grooming Skilled Rationale (Verbal/Tactile/Visual/Demonstration): Facilitate positioning, Cues for cognitive deficit, Technique of activity, Cues for increased safety, Setup, Supervision, Proximal support to increase distal control for task, [id number] assist Grooming Intervention/Details: Encouraged participation in grooming tasks including washing face and hair brushing to challenge UE strength and endurance; limited participation despite verbal, tactile, and positional cues to initiate. Provided PROM with [place] DEE-NI' assist to encourage participation and assess ROM with limited engagement Bathing Assistance: Total UE Dressing Assistance: Total UE Dressing Location: bed level UE Dressing Deficit: Increased time to complete, Activity tolerance, Generalized weakness, Thread RUE, Thread LUE, Pull up arm, Attention, Initiation, Sequencing, Problem solving UE Dressing Skilled Rationale (Verbal/Tactile/Visual/Demonstration): Facilitate positioning, Cues for cognitive deficit, Technique of activity, Cues for increased safety, Setup, Supervision, Proximalsupport to increase distal control for task UE Dressing Intervention/Details: facilitated gown change at bed level due to soiled gown; requiredPROM to initiate threading BUEs due to generalized weakness and poor command following to inititate LE Dressing Assistance: Total Toilet Assistance: Total Toileting Location: (bed level) Toileting Deficit: Increased time to complete, Activity tolerance, Generalized weakness, Balance, Perineal hygiene, Bowel incontinence Toilet Skilled Rationale (Verbal/Tactile/Visual/Demonstration): Facilitate positioning, Cues for cognitive deficit, Technique of activity, Cues for increased safety, Setup, Supervision Toileting Intervention/Details: facilitated dependent bilateral rolling with dependent pericare dueto bowel incontinence Extremity Assessments: RUE Assessment RUE Assessment: AROM Impaired, Strength Impaired Right UE Assessment Details: requires PROM to initiate UE movement LUE Assessment LUE Assessment: AROM Impaired, Strength Impaired Left UE Assessment Details: requires PROM to initiate UE movement Balance: Sitting Balance Static Sitting-Level of Assistance: Standby Dynamic Sitting-Level of Assistance: Contact guard Skilled Rationale: Positioning, Hand placement, Verbal cues, Tactile cues, Finding/maintaining midline positioning, Facilitate anterior shift, Technique of activity, Cues for increased safety Sitting Balance Skilled Intervention/Details: facilitated EOB activity to promote postural control,balance, endurance, and attention. Required increased assist initially due to posterior lean, however, progressing to CGA/SBA with cues to facilitate anterior shift. Encouraged participation in dynamic UE reaching in prep for ADL participation, however, unable to assess due to altered cognition, poor command following, and UE generalized weakness. Returned to supine due to incontinence Neuro: Sensation Sensation Comments: unable to assess; repsonses to tactile stimuli Skin and Edema: Skin Integrity Skin Integrity Description: (see RN skin assessment) Mobility Assessment: Rolling/Turning Mobility [place] Level: Rolling/Turning: dependent (less than 25% patient effort) Physical Assist: Rolling/Turnin person assist Bed Features/Set-up: Rolling/Turning: Flat Skilled Rationale: Positioning, Sequencing, Hand placement, Verbal cues, Tactile cues, Initiation and execution of task Skilled Intervention/Details: Rolling/Turning: facilitated bilateral rolling to complete dependent pericare; total assist to initiate despite verbal and tactile cues to encourage participation Scooting Bridging Mobility [place] Level: Scooting/Bridging: dependent (less than 25% patient effort) Physical Assist: Scooting/Bridgin person assist Bed Features/Set-up: Scooting/Bridging: Flat Skilled Rationale: Positioning, Hand placement, Verbal cues Skilled Intervention/Details: Scooting/Bridging: boosted towards HOB x2 for optimal positioning Supine to Sit Mobility [place] Level: Supine->Sit: dependent (less than 25% patient effort) Physical Assist: Supine->Sit: 2 person assist Bed Features/Set-up: Supine->Sit: Head of bed elevated Skilled Rationale: Positioning, Sequencing, Hand placement, Verbal cues, Tactile cues, Technique ofactivity, Initiation and execution of task, Cues for increased safety Skilled Intervention/Details: Supine->Sit: x1 to EOB; required dependent assist for safety due to limited participation despite verbal and tactile cues to initiate Sit to Supine Mobility [place] Level: Sit->Supine: dependent (less than 25% patient effort) Physical Assist: Sit->Supine: 2 person assist Bed Features/Set-up: Sit->Supine: Flat Skilled Rationale: Positioning, Sequencing, Verbal cues, Tactile cues, Initiation and execution of task, Cues for increased safety Skilled Intervention/Details: Sit->Supine: x1 from EOB; assist to guide trunk and BLE into supine for safety due to limited participation Transfer Assessment: Sit to Stand Transfer [place] Level: Sit->Stand: not tested Functional Mobility: Outcome Score(s): CURRENT [facility] Daily Activity Inpatient Short Form Putting on/Taking Off Lower Body Clothin - Total Assistance Bathin - Total Assistance Toiletin - Total Assistance Putting on/Taking Off Upper Body Clothin - Total Assistance Groomin - Total Assistance Eatin - Total Assistance CURRENT [facility] Activity Raw Score: 6 CURRENT [facility] Activity Functional Limitation/Modifier: 100.00% Currently Impaired in Daily Activity Currently Impaired in Daily Activity - CN CURRENT [facility] Applied Cognitive Inpatient Short Form Follow 10-15 min presentation: 1 - Total Assistance Understand familiar people during conversation: 1 - Total Assistance Takes meds at appropriate time: 1 - Total Assistance Remembers where things were placed: 1 - Total Assistance Remembers list of 4-5 errands without writing it down: 1 - Total Assistance Takes care of complicated tasks: 1 - Total Assistance CURRENT [facility] Cognitive Raw Score: 6 CURRENT [facility] Cognitive Functional Limitation/Modifier: 100.00% Currently Impaired in Cognition Currently Impaired in Cognition - CN Interventions: Assessment & Plan: Patient was admitted for AMS and seen for therapy evaluation related to deconditioning, safety, andindependence with ADLs. Exam findings include impairments in: arousal, attention, balance, cognitive impairments, coordination, endurance, strength, transfers, ROM. These impairments contribute to occupational performance limitations including bathing, dressing, grooming, toileting, functional mobility, ADL transfers. The following factors impact the plan of care: Past Medical History: Diagnosis Date (HFpEF) heart failure with preserved ejection fraction CKD (chronic kidney disease) stage 4, GFR 15-29 ml/min COPD (chronic obstructive pulmonary disease) HTN (hypertension) Lymphedema Obesity TADEO (obstructive sleep apnea) VTE (venous thromboembolism) Patient will benefit from skilled occupational therapy to address these impairments, occupational performance limitations, and participation restrictions. Patient's rehab potential is: fair. Planned Therapy Interventions (OT Eval): ADL retraining, balance training, bed mobility training, cognitive training, functional activity tolerance, ROM (range of motion), strengthening, transfer training Patient Instruction/Education this session: Learners: Patient Education provided: Plan of care, Role of this discipline Teaching method: Verbal Education/Instruction Learner response: No evidence of learning, Needs review Learning preferences: Auditory Learning considerations: Cognition Plan for next session: EOB ADL engagement, functional cognition Acute OT Goals Plan of Care by Katina Murillo OT at 05/09/2024 10:52 AM Version 1 of 1 Problem: OT - ADLs Goal: Upper Body Dressing - Patient will complete upper body dressing task edge of bed with minimalassistance using adaptive equipment/compensatory strategies as needed for improved ability to complete self-care activities. Outcome: Ongoing Goal: Grooming - Patient will complete grooming edge of bed with minimal assistance for improved ability to safely complete ADLs. Outcome: Ongoing Problem: OT - Transfers Goal: Transfers Sit/Stand - Patient will demonstrate good safety awareness during sit to/from standfunctional transfer with minimal assistance and of 2 people and least restrictive device to demonstrate safe functional transfers. Outcome: Ongoing Problem: OT - Balance Goal: Balance - Seated - Patient will perform 15+ minutes of functional task in sitting with supervision and good balance to promote safety during self-care activities. Outcome: Ongoing Problem: OT - Strength/ROM Goal: Strength/ROM ADL Participation - Patient will participate in UE exercise program with minimalassistance to prevent deconditioning while in hospital and to max UE ROM/Coordination/strength for ADLs. Outcome: Ongoing Problem: OT - Cognition Goal: Cognition Simple ADL - Patient will demonstrate improved cognition, completing simple ADL task for 10+ minutes with no greater than min cues required to maintain attention. Outcome: Ongoing OT treatment consisted of the following to work and progress towards the above goal(s): OT Evaluation and Treatment Time OT Evaluation (Moderate) Time Entry: 23 Self Care/Home Management (ADLs) Time Entry: 18 Evaluating Therapist: Katina Murillo OT Additional Details: OT Co-Eval/Treatment Information Co-evaluation/co-treatment performed?: Yes, simultaneous billable skilled care was necessary due tomedical complexity and functional deficits Other discipline: PT Rationale for need to co-eval/treat: cognition, coordination, postural control OT Evaluation Complexity Occupational Profile and Client History: Moderate - expanded history Assessment of Occupational Performance: Moderate (3-5 performance deficits) Clinical Decision/Performance Deficits: Moderate (detailed assessments w/several treatment options) Time In: 1052 Time Out: 1133 Total Visit Time: 41 minutes Total Treatment Time (skilled, billable minutes): 41 minutes PPE used during patient interaction: gloves, gown Patient location at end of session: bed with head of bed elevated, lines intact Alarms on at end of session: bed alarm, RN aware Needs in reach. Upon discontinuation of Acute Care Occupational Therapy Services or patient discharge from the hospital this note represents the current Occupational Therapy Discharge Summary. * Pratik Young MD - 05/08/2024 9:07 PM EST Critical Care Progress Note INTERVAL HISTORY: Passed SBT. Extubated after rounds. Some post laryngeal edema responded to racemic epi and decadron. Mental status improved as she nodes head to voice CURRENT HOSPITALIZATION/ICU LOS: Admit Date: 05/04/2024 [facility] [place] Hospital LOS: 4 days Scheduled Meds: cefTRIAXone 2 g Intravenous Q24H dexAMETHasone 6 mg Intravenous Q6H faMOTIdine 20 mg Oral Daily Or faMOTIdine 20 mg Per NG tube Daily Or famotidine (PF) 20 mg Intravenous Daily heparin 7,500 Units Subcutaneous Q8H 0800/1600/2200 lacosamide 100 mg Intravenous Q12HNS Levothyroxine 125 mcg Oral Before BKF ProSource TF 1 Package Nasogastric Daily vitamin B complex/vitamin C/folic acid (NEPHRONEX) 5 mL Per NG tube Daily Water liquid (free water) 30 mL Per NG tube Q4H Continuous Infusions: Nepro/CarbSteady 35 mL/hr (05/08/241949) PRN Meds:bisacodyl, guaiFENesin, Ipratropium-albuterol, Senna OBJECTIVE FINDINGS: Vital Signs (24hrs): Temp: [99.7 F (37.6 C)-101.3 F (38.5 C)] 99.7 F (37.6 C) Pulse (Heart Rate): [72-93] 83 BP: (125-180)/(60-86) 132/63 O2 Sat (%): [98 %-100 %] 99 % Hemodynamic/Invasive Device Data (24 hrs): Pulmonary/Cardiac Hemodynamics Pulse (Heart Rate): 83 Neuro ICP/CPP Monitoring MAP (mmHg): 90 mmHg Neuro ICP/CPP Monitoring 2 MAP (mmHg): 90 mmHg Ventilation/Oxygen Therapy (24hrs): O2 Sat (%): [98 %-100 %] 99 % O2 Device: nasal cannula Flow (L/min): [6] 6 Oxygen Concentration (%): [30] 30 Ventilator Type: R860 Mode: SBT Total Respiratory Rate (bpm): [15-21] 17 PEEP (cm H2O): [5-6] 5 Pressure Support (cmH2O): [5-8] 5 Peak Inspiratory Pressure (cmH2O): [14] 14 I:E Ratio: 1:4.9 Ventilator Type: R860 PEEP (cm H2O): [5-6] 5 Pressure Support (cmH2O): [5-8] 5 Peak Inspiratory Pressure (cmH2O): [14] 14 I:E Ratio: 1:4.9 Lines/Drains/Airways/Wounds: Patient Lines/Drains/Airways Status Active Lines, Drains, Airways, & Wound Overview Name Placement date Placement time Site Days Peripheral IV Line - Single Lumen 05/06/24 1423 forearm, anterior, left 20 gauge;1 3/4 in length 05/06/24 1423 -- 2 Peripheral IV Line - Single Lumen 05/06/24 1424 forearm, anterior, left 20 gauge;1 3/4 in length 05/06/24 1424 -- 2 Peripheral IV Line - Single Lumen 05/08/24 1732 median vein (underside of arm), left 20 gauge;1 1/4in length 05/08/24 1732 -- less than 1 Indwelling Urethral Catheter 05/08/24 1536 10 05/08/24 1536 -- less than 1 Naso/Oral Tube 05/05/24 0003 Nasogastric right nostril 05/05/24 0003 -- 3 Fluid Management (24hrs): Intake/Output this shift: I/O last 3 completed shifts: In: 857.5 [I.V.:74.6; NG/GT:671; IV Piggyback:111.8] Out: 1974 [Urine:1975] PHYSICAL EXAM: Gen: Intubated / unresponsive Lung: Clear anteriorly, good air movement CV: RR Abd: Soft Ext: No pretibial edema Neuro: Level Of Consciousness: lethargic, obtunded Orientation: disoriented x 4 DIAGNOSTIC RESULTS/PROCEDURES: Radiology/Images: I have reviewed the radiology report and images in [facility]. Labs I have reviewed the laboratory studies in [facility]. ASSESSMENT/PLAN: ICU Problems (chronic problems not listed) - Acute Resp Failure Seizure Disorder - new onset, uncertain etiology JOSE - h/o CKD HFpEF Ecoli UTI Altered mental status - question etiology medication effect (flexeril / Ambien versus infection) Today's Plan - Cont ceftriaxone given fever, likely can stop tomorrow if afebrile Cont VIMPAT Wean FiO2 If strider worsens or respiratory distress, NIPPV Cont TF I spent greater than: 30 Minutes minutes in the intensive care unit providing critical care services to Ms. Lopez today as outlined above independent of procedures and other care providers. My time managing this critically ill patient included review of interval history, laboratories, radiology and c onsultation reports; performing a physical examination; discussing the patient with the multi-disciplinary team and managing life sustaining therapies to prevent imminent clinical deterioration as noted above. Pratik Young MD MPH * Mae Steiner MD - 05/08/2024 4:02 PM EST NEPHROLOGY INPATIENT FOLLOW UP NOTE Reason for Consultation: Non-oliguric JOSE on CKD 4 Referring Provider: Pratik Young MD Hospital Day: 4 SUBJECTIVE Patient seen at bedside this morning. Opens eyes but not following commands. ASSESSMENT AND PLAN: 83F with PMH of CKD 4, neurogenic bladder, HTN, obesity s/p gastric bypass, TADEO, COPD, HFpEF, hypothyroidism, DVT/PE, chronic lymphedema who presented as a [facility] after she presented with AMS and found to have status epilepticus. Hospital course c/b acute respiratory failure requiring intubation and JOSE requiring DOOR TO DOOR SELLING AGENT for which nephrology is consulted. IMPRESSION Oliguric JOSE on CKD 4 JOSE likely due to ischemic and septic ATN due to septic shock Acute respiratory failure, on mechanical ventilatoin UTI with E coli. Anemia Seizure disorder Acute encephalopathy Hypocalcemia with normal corrected calcium Hypovitaminosis D Urine sediment (05/05/24): Dissolving granular casts, CaOx monohydrate crystals, WBCs, RTECs, debris PLAN No acute DOOR TO DOOR SELLING AGENT need. Reassess daily. Monitor labs and UOP for renal recovery Give IV lasix 80mg in addition to IV lasix 40mg given earlier in the morning. Continue diuresis with goal net negative 1-1.5L/d Check K level q12h and replace as needed while diuresing Please check phos daily, replace for level less than 2. Start vit D 50,000 units a week for a total of 10 weeks. Transfuse for Hgb less than 7. Accurate Is/Os Avoid nephrotoxins, as able Adjust all medications for decreased creat clearance. Maintain MAP >65. Discussed with primary team Please direct all questions/concerns to Qgenda --> Internal Medicine --> Nephrology --> Ross Consults Mae Steiner MD DENNIS Nephrology Fellow, PGY-5 [facility] Pager: [phone] Renal Attending Attestation: INicho M.D. personally saw and examined the patient. I discussed the case, reviewed medications, diagnostic data with Dr. Steiner and agree with her findings, assessment and plan that I have amended as needed. On vent support, opens her eyes but does not follow commands, serum creat is up from 2.11, yesterday, non-oliguric, responds to IV Lasix, no urgent needfor dialysis, daily chemistry with strict Is/Os, maintain kidney protective measures and supportivecare, as above. The case was discussed with the primary service. Nicho Monae MD OBJECTIVE Vitals: BP 132/62 Pulse 88 Temp 100.4 F (38 C) Resp 14 Ht 1.549 m (5' 1) Wt 113.8 kg (250 lb 14.1 oz) SpO2 98% BMI 47.40 kg/m Smoking Status Unknown I/O last 3 completed shifts: In: 637.5 [I.V.:74.6; NG/GT:451; IV Piggyback:111.8] Out: 1974 [Urine:1974] Scheduled Medications cefTRIAXone 2 g Intravenous Q24H dexAMETHasone 6 mg Intravenous Q6H faMOTIdine 20 mg Oral Daily Or faMOTIdine 20 mg Per NG tube Daily Or famotidine (PF) 20 mg Intravenous Daily heparin 7,500 Units Subcutaneous Q8H 0800/1600/2200 lacosamide 100 mg Intravenous Q12HNS Levothyroxine 125 mcg Oral Before BKF ProSource TF 1 Package Nasogastric Daily vitamin B complex/vitamin C/folic acid (NEPHRONEX) 5 mL Per NG tube Daily Water liquid (free water) 30 mL Per NG tube Q4H Physical Examination: Constitutional: critically ill, not following commands HEENT: ET and NG tubes in place. Chest: mechanical breath sounds. Cardiovascular: regular rhythm, no rub. Abdominal: obese, soft, no grimace to abdominal palpation Extremities: 1+ feet edema Skin: warm and dry, no cyanosis. Dialysis Access: LIJ temp HD catheter. Relevant Data: Lab Results Component Value Date SODIUM 140 05/08/2024 POTASSIUM 3.9 05/08/2024 CHLORIDE 106 05/08/2024 CO2 22 05/08/2024 BUN 28 (H) 05/08/2024 CREATSERUM 2.34 (H) 05/08/2024 GLUCOSE 109 (H) 05/08/2024 GLUCOSE 107 (H) 05/08/2024 Lab Results Component Value Date WBC 15.34 (H) 05/08/2024 HGB 8.8 (L) 05/08/2024 HCT 28.9 (L) 05/08/2024 PLATELET 77 (L) 05/08/2024 MCV 99.0 (H) 05/08/2024 Lab Results Component Value Date CALCIUM 7.4 (L) 05/06/2024 PHOSPHORUS 3.3 05/08/2024 Lab Results Component Value Date ALBUMIN 2.4 (L) 05/04/2024 Lab Results Component Value Date [id number] 17.6 (L) 05/05/2024 * Pratik Young MD - 05/07/2024 6:50 PM EST Critical Care Progress Note INTERVAL HISTORY: Responding to some commands. Unable to keep circuit for CRRT due to clots CURRENT HOSPITALIZATION/ICU LOS: Admit Date: 05/04/2024 [facility] [place] Hospital LOS: 3 days Scheduled Meds: [START ON 05/08/2024] cefTRIAXone 2 g Intravenous Q24H chlorhexidine 15 mL Mouth/Throat Q12H dialysate Dialysis Once in dialysis faMOTIdine 20 mg Oral Daily Or faMOTIdine 20 mg Per NG tube Daily Or famotidine (PF) 20 mg Intravenous Daily heparin 7,500 Units Subcutaneous Q8H 0800/1600/2200 lacosamide 100 mg Intravenous Q12HNS Levothyroxine 125 mcg Oral Before BKF ProSource TF 1 Package Nasogastric Daily vitamin B complex/vitamin C/folic acid (NEPHRONEX) 5 mL Per NG tube Daily Water liquid (free water) 30 mL Per NG tube Q4H Continuous Infusions: Nepro/CarbSteady 35 mL/hr (05/07/241999) Propofol 25 mcg/kg/min (05/07/24 0500) PRN Meds:bisacodyl, guaiFENesin, Ipratropium-albuterol, Senna OBJECTIVE FINDINGS: Vital Signs (24hrs): Temp: [98.2 F (36.8 C)-100.2 F (37.9 C)] 99.9 F (37.7 C) Pulse (Heart Rate): [64-90] 74 Resp Rate: [14-46] 14 BP: (100-165)/(53-85) 138/65 O2 Sat (%): [92 %-100 %] 100 % Weight: [113.8 kg (250 lb 14.1 oz)] 113.8 kg (250 lb 14.1 oz) Hemodynamic/Invasive Device Data (24 hrs): Pulmonary/Cardiac Hemodynamics Pulse (Heart Rate): 74 Neuro ICP/CPP Monitoring MAP (mmHg): 93 mmHg Neuro ICP/CPP Monitoring 2 MAP (mmHg): 93 mmHg Ventilation/Oxygen Therapy (24hrs): O2 Sat (%): [92 %-100 %] 100 % O2 Device: ventilator (mechanical ventilation) Oxygen Concentration (%): [21-40] 30 Ventilator Type: R860 Mode: CPAP/PS Set/Target Tidal Volume (mL): [375] 375 mL/kg IBW Tidal Volume (Actual): [7.85] 7.85 Respiratory Rate - set (bpm): [10] 10 Total Respiratory Rate (bpm): [13-18] 14 PEEP (cm H2O): [5-6] 6 Pressure Support (cmH2O): [5-8] 8 Peak Inspiratory Pressure (cmH2O): [12-14] 14 I:E Ratio: 1:3.3 Ventilator Type: R860 Set/Target Tidal Volume (mL): [375] 375 mL/kg IBW Tidal Volume (Actual): [7.85] 7.85 Respiratory Rate - set (bpm): [10] 10 PEEP (cm H2O): [5-6] 6 Pressure Support (cmH2O): [5-8] 8 Peak Inspiratory Pressure (cmH2O): [12-14] 14 I:E Ratio: 1:3.3 Lines/Drains/Airways/Wounds: Patient Lines/Drains/Airways Status Active Lines, Drains, Airways, & Wound Overview Name Placement date Placement time Site Days Peripheral IV Line - Single Lumen 05/05/24 1245 forearm, anterior, right 22 gauge;1 in length 05/05/24 1245 -- 2 Peripheral IV Line - Single Lumen 05/06/24 1423 forearm, anterior, left 20 gauge;1 3/4 in length 05/06/24 1423 -- 1 Peripheral IV Line - Single Lumen 05/06/24 1424 forearm, anterior, left 20 gauge;1 3/4 in length 05/06/24 1424 -- 1 Indwelling Urethral Catheter 05/04/24 2215 05/04/24 2215 -- 3 Naso/Oral Tube 05/05/24 0003 Nasogastric right nostril 05/05/24 0003 -- 2 Airway 05/04/24 2100 endotracheal tube 05/04/24 2100 -- 3 Fluid Management (24hrs): Intake/Output this shift: I/O last 3 completed shifts: In: 2653.1 [I.V.:1581; Blood:315; NG/GT:711; IV Piggyback:46.1] Out: 753 [Urine:753] PHYSICAL EXAM: Gen: Intubated / unresponsive Lung: Clear anteriorly, good air movement CV: RR Abd: Soft Ext: No pretibial edema Neuro: Level Of Consciousness: lethargic Orientation: other (see comments) (BART) DIAGNOSTIC RESULTS/PROCEDURES: Radiology/Images: I have reviewed the radiology report and images in [facility]HIS. Labs I have reviewed the laboratory studies in [facility]IS. ASSESSMENT/PLAN: ICU Problems (chronic problems not listed) - Acute Resp Failure Seizure Disorder - new onset, uncertain etiology JOSE - h/o CKD HFpEF Ecoli UTI Altered mental status - question etiology medication effect (flexeril / Ambien versus infection) Today's Plan - Stop acyclovir Cont ceftriaxone Cont VIMPAT Pull internal jugular due to clots Appreciate Neuro help Cont vent support, until mental status improved Hold sedation I spent greater than: 30 Minutes minutes in the intensive care unit providing critical care services to Ms. Lopez today as outlined above independent of procedures and other care providers. My time managing this critically ill patient included review of interval history, laboratories, radiology and c onsultation reports; performing a physical examination; discussing the patient with the multi-disciplinary team and managing life sustaining therapies to prevent imminent clinical deterioration as noted above. Pratik Young MD MPH * Martín Alford RCP - 05/07/2024 5:32 PM EST Vent Settings: CPAP 8, 30%, +6 Plan of Care: Pt passed her SBT; however, her AMS is a barrier to extubation. Continue MV, pulmonary hygiene, anddaily SBT's. The patients respiratory plan of care was updated by Martín Alford RCP 05/07/2024 5:32 PM \ * Mae Steiner MD - 05/07/2024 5:10 PM EST NEPHROLOGY INPATIENT FOLLOW UP NOTE Reason for Consultation: Non-oliguric JOSE on CKD 4 Referring Provider: Pratik Young MD Hospital Day: 3 SUBJECTIVE Seen at bedside this morning. PIRRT about 5hrs overnight then line clotted. Dwelling tpa this morning. Later in the afternoon line was removed with many clots per primary ASSESSMENT AND PLAN: 83F with PMH of CKD 4, neurogenic bladder, HTN, obesity s/p gastric bypass, TADEO, COPD, HFpEF, hypothyroidism, DVT/PE, chronic lymphedema who presented as a transfer [facility] after she presented with AMS and found to have status epilepticus. Hospital course c/b acute respiratory failure requiring intubation and JOSE requiring DOOR TO DOOR SELLING AGENT for which nephrology is consulted. IMPRESSION Oliguric JOSE on CKD 4 JOSE likely due to ischemic and septic ATN due to septic shock Acute respiratory failure, on mechanical ventilatoin UTI with E coli. Anemia Seizure disorder Acute encephalopathy Hypocalcemia with normal corrected calcium Hypovitaminosis D Urine sediment (05/05/24): Dissolving granular casts, CaOx monohydrate crystals, WBCs, RTECs, debris PLAN Plan initially for PIRRT overnight for gadolinium clearance. Received 5hrs then line clotted, no improvement with tpa dwell and primary team removed line noted to have many clots. Currently without access. Will need new access for DOOR TO DOOR SELLING AGENT. No urgent need although likely suboptimal clearance of gadolinium. Continue to monitor Please check phos daily, replace for level less than 2. Start vit D 50,000 units a week for a total of 10 weeks. Transfuse for Hgb less than 7. Accurate Is/Os Avoid nephrotoxins, as able Adjust all medications for decreased creat clearance. Maintain MAP >65. Discussed with primary team Please direct all questions/concerns to Qgenda --> Internal Medicine --> Nephrology --> Ross Consults Mae Steiner MD DENNIS Nephrology Fellow, PGY-5 [facility] Pager: [phone] Renal Attending Attestation: INicho M.D. personally saw and examined the patient. I discussed the case, reviewed medications, diagnostic data with Dr. Steiner and agree with her findings, assessment and plan that I have amended as needed. Patinet in intubated, on vent support, does not follow commands, off CRRT at this time because of HD catheter dysfunction, continue to monitor kidney function closely, strict Is/Os, kidney protective measures and supportive care, as above., Nicho Monae MD OBJECTIVE Vitals: BP 149/65 (BP Location: Right arm, BP Position: Lying) Pulse 77 Temp 99.7 F (37.6 C) (Bladder) Resp 14 Ht 1.549 m (5' 1) Wt 113.8 kg (250 lb 14.1 oz) SpO2 98% BMI 47.40 kg/m Smoking Status Unknown I/O last 3 completed shifts: In: 2653.1 [I.V.:1581; Blood:315; NG/GT:711; IV Piggyback:46.1] Out: 753 [Urine:753] Scheduled Medications [START ON 05/08/2024] cefTRIAXone 2 g Intravenous Q24H chlorhexidine 15 mL Mouth/Throat Q12H dialysate Dialysis Once in dialysis faMOTIdine 20 mg Oral Daily Or faMOTIdine 20 mg Per NG tube Daily Or famotidine (PF) 20 mg Intravenous Daily heparin 7,500 Units Subcutaneous Q8H 0800/1600/2200 lacosamide 100 mg Intravenous Q12HNS Levothyroxine 125 mcg Oral Before BKF ProSource TF 1 Package Nasogastric Daily vitamin B complex/vitamin C/folic acid (NEPHRONEX) 5 mL Per NG tube Daily Water liquid (free water) 30 mL Per NG tube Q4H Physical Examination: Constitutional: critically ill, intubated, not following commands HEENT: ET and NG tubers in place. Chest: mechanical breath sounds. Cardiovascular: regular rhythm, no rub. Abdominal: obese, soft, no grimace to abdominal palpation Extremities: 1+ feet edema Dialysis Access: J temp HD catheter. Relevant Data: Lab Results Component Value Date SODIUM 137 05/07/2024 POTASSIUM 3.6 05/07/2024 CHLORIDE 106 05/07/2024 CO2 24 05/07/2024 BUN 24 05/07/2024 CREATSERUM 2.11 (H) 05/07/2024 GLUCOSE 88 05/07/2024 Lab Results Component Value Date WBC 16.89 (H) 05/07/2024 HGB 8.5 (L) 05/07/2024 HCT 27.3 (L) 05/07/2024 PLATELET 73 (L) 05/07/2024 MCV 100.8 (H) 05/07/2024 Lab Results Component Value Date CALCIUM 7.4 (L) 05/06/2024 PHOSPHORUS 3.2 05/07/2024 Lab Results Component Value Date ALBUMIN 2.4 (L) 05/04/2024 Lab Results Component Value Date [id number] 17.6 (L) 05/05/2024 * Tata Sethi, [facility] - 05/06/2024 10:56 PM EST Department of Pharmacy Renal Documentation Note Patient: Mari Lopez Room/Bed: [facility]0/E Assessment and Plan: The patient was initiated on prolonged intermittent renal replacement therapy (PIRRT) for 12 hours to start at 2245 . The current medication profile was reviewed for appropriate dosing and timing andany contraindications to prescribed therapies. No adjustments to medication therapy are necessary at this time. A pharmacist will continue to follow patient and recommend drug levels and dose changes as clinically appropriate. Please contact with any questions, Name: Tata Sethi RPH Phone: [phone] Date/Time: 05/06/2024 10:56 PM * Pratik Young MD - 05/06/2024 4:00 PM EST Critical Care Progress Note INTERVAL HISTORY: Responding to some voice. Off vasopressors CURRENT HOSPITALIZATION/ICU LOS: Admit Date: 05/04/2024 [facility] [place] Hospital LOS: 2 days Scheduled Meds: acyclovir 5 mg/kg (Adjusted) Intravenous Q24H bisacodyl 10 mg Rectal Daily cefTRIAXone 2 g Intravenous Q12HNS chlorhexidine 15 mL Mouth/Throat Q12H [START ON 05/07/2024] dialysate Dialysis Once in dialysis faMOTIdine 20 mg Oral Daily Or faMOTIdine 20 mg Per NG tube Daily Or famotidine (PF) 20 mg Intravenous Daily [Held by provider] heparin 7,500 Units Subcutaneous Q8H 0800/1600/2200 lacosamide 100 mg Intravenous Q12HNS Levothyroxine 125 mcg Oral Before BKF ProSource TF 1 Package Nasogastric Daily Senna 8.6 mg Per NG tube Q12H vitamin B complex/vitamin C/folic acid (NEPHRONEX) 5 mL Per NG tube Daily Water liquid (free water) 30 mL Per NG tube Q4H Continuous Infusions: Nepro/CarbSteady 10 mL/hr (05/06/24 1050) Sodium chloride 0.9% 100 mL/hr at 05/06/24 1535 PRN Meds:Ipratropium-albuterol OBJECTIVE FINDINGS: Vital Signs (24hrs): Temp: [98.2 F (36.8 C)-100 F (37.8 C)] 99.7 F (37.6 C) Pulse (Heart Rate): [69-89] 78 Resp Rate: [11-19] 11 BP: (106-145)/(51-73) 114/57 O2 Sat (%): [93 %-98 %] 95 % Weight: [113.3 kg (249 lb 12.5 oz)] 113.3 kg (249 lb 12.5 oz) Hemodynamic/Invasive Device Data (24 hrs): Pulmonary/Cardiac Hemodynamics Pulse (Heart Rate): 78 Neuro ICP/CPP Monitoring MAP (mmHg): 82 mmHg Neuro ICP/CPP Monitoring 2 MAP (mmHg): 82 mmHg Ventilation/Oxygen Therapy (24hrs): O2 Sat (%): [93 %-98 %] 95 % O2 Device: ventilator (mechanical ventilation) Oxygen Concentration (%): [21] 21 Ventilator Type: R860 Mode: A/C PRVC Set/Target Tidal Volume (mL): [375] 375 mL/kg IBW Tidal Volume (Actual): [7.85] 7.85 Respiratory Rate - set (bpm): [10] 10 Total Respiratory Rate (bpm): [11-17] 11 PEEP (cm H2O): [5-6] 6 Pressure Support (cmH2O): [5-8] 8 Peak Inspiratory Pressure (cmH2O): [11-14] 11 I:E Ratio: 1:5 Ventilator Type: R860 Set/Target Tidal Volume (mL): [375] 375 mL/kg IBW Tidal Volume (Actual): [7.85] 7.85 Respiratory Rate - set (bpm): [10] 10 PEEP (cm H2O): [5-6] 6 Pressure Support (cmH2O): [5-8] 8 Peak Inspiratory Pressure (cmH2O): [11-14] 11 I:E Ratio: 1:5 Lines/Drains/Airways/Wounds: Patient Lines/Drains/Airways Status Active Lines, Drains, Airways, & Wound Overview Name Placement date Placement time Site Days Tunneled Central Line - Double Lumen 05/04/242099 red blue internal jugular vein, left 05/04/24 2100 -- 1 Peripheral IV Line - Single Lumen 05/05/24 1245 forearm, anterior, right 22 gauge;1 in length 05/05/24 1245 -- 1 Peripheral IV Line - Single Lumen 05/06/24 1423 forearm, anterior, left 20 gauge;1 3/4 in length 05/06/24 1423 -- less than 1 Peripheral IV Line - Single Lumen 05/06/24 1424 forearm, anterior, left 20 gauge;1 3/4 in length 05/06/24 1424 -- less than 1 Indwelling Urethral Catheter 05/04/24 2215 05/04/24 2215 -- 1 Naso/Oral Tube 05/05/24 0003 Nasogastric right nostril 05/05/24 0003 -- 1 Airway 05/04/24 2100 endotracheal tube 05/04/242099 -- 1 Fluid Management (24hrs): Intake/Output this shift: I/O last 3 completed shifts: In: 4619.3 [I.V.:2230.4; NG/GT:240; IV Piggyback:749; Dialysis:1400] Out: 2301 [Urine:900] PHYSICAL EXAM: Gen: Intubated / unresponsive Lung: Clear anteriorly, good air movement CV: RR Abd: Soft Ext: No pretibial edema Neuro: Level Of Consciousness: confused, lethargic Orientation: disoriented to, place, situation, time DIAGNOSTIC RESULTS/PROCEDURES: Radiology/Images: I have reviewed the radiology report and images in IHIS. Labs I have reviewed the laboratory studies in IHIS. ASSESSMENT/PLAN: ICU Problems (chronic problems not listed) - Acute Resp Failure Seizure Disorder - new onset, uncertain etiology JOSE - h/o CKD HFpEF Ecoli UTI Altered mental status - question etiology medication effect (flexeril / Ambien versus infection) Today's Plan - Narrow abx, stop vanco and ampicillin Cont VIMPAT MRI when off EEG Appreciate Neuro help Cont vent support, repeat SBT tomorrow, mental status precludes extubation Hold sedation I spent greater than: 30 Minutes minutes in the intensive care unit providing critical care services to Ms. Lopez today as outlined above independent of procedures and other care providers. My time managing this critically ill patient included review of interval history, laboratories, radiology and c onsultation reports; performing a physical examination; discussing the patient with the multi-disciplinary team and managing life sustaining therapies to prevent imminent clinical deterioration as noted above. Pratik Young MD MPH * Vy Hightower RN - 05/06/2024 10:13 AM EST Manager Behavior's Assessment and Summary: Overall Assessment: Ongoing AMS, respiratory failure, JOSE, and sepsis (UTI) Respiratory Status: Intubated (ay OSH) A) Passed SBT, but AMS impedes extubation Nutritional Support: NG PT/OT Recommendations: Pending CAM-ICU: Positive iHD Barriers to Discharge:Medical readiness Following: Neurology, Nephrology Discharge Goals: CM Primary SNF. No discharge date Next Steps: Monitoring progress; no definitive discharge plan has been established at this time. Vy Raymundo, MSN, RN 10 MICU Clinical Manager Behavior (p) [phone] Available on secure chat FYI: Reason for Admission: From OSH intubated and concern for seizures Prior to Admission: ADLs/IADLs (prior admission): Assisted Decision Making (prior admission): Independent DMEs: walker;rollator;shower seat;straight cane;stair lift;blood pressure monitor; incontinence supplies Summary: Lives at a house with roommate. * Jhonatan Ruiz RCP - 05/06/2024 10:11 AM EST 05/06/24 0955 B = SAT/SBT Eligibility, Safety Screen & Outcomes (Document Daily in ICU) Outcome for SBT (Spontaneous Breathing Trial) SBT Passed * Grazyna Dillard RD - 05/06/2024 9:54 AM EST NUTRITION ASSESSMENT Nutrition Recommendations and Plan of Care: 1. Agree with trickle TF with Nepro. Advance as tolerated to goal 35 mL/hr. 2. Add 1 pkt ProSource TF once daily. - Goal rate TF and ProSource TF in total will provide 840 mL, 1552 kcal (33 kcal/kg), 79 g PRO (1.7g pro/kg), 134 g CHO and 611 mL free water. - Additional free water flushes per primary team. Recommend minimum 30 mL x 4/day to maintain tube patency. 3. Monitor TF intake, bowel function, skin integrity, weight change, lab values. 4. RD to follow. Mari Lopez is a 83 y.o. female with h/o HTN, CKD4, hyperparathyroidism, hypothyroidism, BAYRON,gastric bypass (2003), TADEO, who presents as a transfer for AMS w/ concern for status epilepticus. Pt initially presented to OSH ED 05/01/24 with AMS found to have severe metabolic derangements. She was intubated, initiated on broad spectrum antibiotics, and placed on vasopressors. Pt was noted to have possible seizure and spot EEG obtained with findings concerning for possible status epilepticus. Past History Past medical, surgical, family, and social histories have reviewed and are located elsewhere in themedical record. Nutrition History Pt remains intubated with NG in place. Levophed stopped. AXR 05/05 with ileus. NG with no output in the last 24 hours. Pt had 1x BM yesterday. Trickle TF started today. Diet Order Current Diet Orders Procedures DIET NPO AND TUBE FEEDING with meds Standing Status: Standing Number of Occurrences: 1 Order Specific Question: NPO Meds: Answer: with meds Ht: 5' 1/154.9 cm Wt (05/05): 249#/113.3 kg BMI: 47.2 kg/(m^2) Adm Wt: 256#/116.3 kg IBW: 105#/47.7kg %IBW: 237 Weight history: current wt most likely is falsely elevated d/t fluid overload with 3-4+ edema. Although weight had been slowly trending up over the last year per chart review. Wt Readings from Last 20 Encounters: 05/05/24 113.3 kg (249 lb 12.5 oz) 03/16/24 104.8 kg (231 lb) 01/28/24 103.9 kg (229 lb) 12/04/23 101.2 kg (223 lb) 07/22/23 101.2 kg (223 lb) 06/09/23 98.7 kg (217 lb) 04/16/23 98.9 kg (218 lb) Meds reviewed: Scheduled: acyclovir 5 mg/kg (Adjusted) Intravenous Q24H bisacodyl 10 mg Rectal Daily cefTRIAXone 2 g Intravenous Q12HNS chlorhexidine 15 mL Mouth/Throat Q12H [START ON 05/07/2024] dialysate Dialysis Once in dialysis faMOTIdine 20 mg Oral Daily Or faMOTIdine 20 mg Per NG tube Daily Or famotidine (PF) 20 mg Intravenous Daily [Held by provider] heparin 7,500 Units Subcutaneous Q8H 0800/1600/2200 lacosamide 100 mg Intravenous Q12HNS Levothyroxine 125 mcg Oral Before BKF metoprolol 2.5 mg Intravenous Once Senna 8.6 mg Per NG tube Q12H vitamin B complex/vitamin C/folic acid (NEPHRONEX) 5 mL Per NG tube Daily Water liquid (free water) 30 mL Per NG tube Q4H Continuous: Nepro/CarbSteady 10 mL/hr (05/06/24 1050) Sodium chloride 0.9% 100 mL/hr at 05/06/24 1000 Labs reviewed: Na/K+/Phos/Mg/Ca: 137/4.1/5.2/2.2/-- (05/06 6) Bun/Creat/Cl/CO2/Glucose: 52/3.60/107/21/90 (05/06 6) WBC/Hgb/Hct/Plts: 19.33/7.1/22.9/90 (05/06 30) GI: +NG, soft, NT, ND, hypoactive BS Last BM 05/06 Skin: Bhupendra Score: 12 Edema - 2+ generalized, 3+ L/R arm, 4+ L/R leg Nutrition Focused Physical Exam: Not completed at this time Reason For Deferral: pt intubated Estimated Nutrition Needs: Dosing wt: 105#/47.7 kg - IBW EEN: 1023-7187 (28-33 kcal/kg IBW) EPN: 72-119 (1.5-2.5 g/kg IBW) Malnutrition Statement: Does the patient meet criteria for malnutrition: Unable to assess (pt intubated) *Based on [employer] and [employer]EN Indicators to Diagnose Malnutrition (AAIM) criteria (2012) Pt remains at nutrition risk due to clinical status, JOSE on CKD4, gastric bypass, AMS, c/f status epilepticus, acute respiratory failure, ileus, TF requirement. Nan RD, LD, CNSC Pager #[phone] * Josefina Cary MD - 05/06/2024 9:31 AM EST NEPHROLOGY INPATIENT FOLLOW UP NOTE Reason for Consultation: Non-oliguric JOSE on CKD 4 Referring Provider: Pratik Young MD Hospital Day: 2 SUBJECTIVE Pt seen and examined at bedside-critically ill, intubated UOP 1100mL/24h Underwent dialysis for clearance only ASSESSMENT AND PLAN: 83F with PMH of CKD 4, neurogenic bladder, HTN, obesity s/p gastric bypass, TADEO, COPD, HFpEF, hypothyroidism, DVT/PE, chronic lymphedema who [facility] after she presented with AMS and found to have status epilepticus. Hospital course c/b acute respiratory failure requiring intubation and JOSE requiring DOOR TO DOOR SELLING AGENT for which nephrology is consulted. IMPRESSION Oliguric JOSE on CKD 4 JOSE likely due to ischemic and septic ATN due to septic shock Hypovolemia Azotemia Hypomagnesemia Hypocalcemia Macrocytic anemia AMS due to seizure disorder vs metabolic encephalopathy Septic shock (shock resolved) due to E coli UTI? Acute respiratory failure s/p intubation Urine sediment (05/05/24): Dissolving granular casts, CaOx monohydrate crystals, WBCs, RTECs, debris PLAN Underwent dialysis this am for clearance only. Had to run with lines reversed and tego caps off andQb limited to 200, likely due to intravascular volume depletion. Would recommend giving gentle hydration. Will determine iHD on a daily basis. Signed and held PIRRT orders to be started as soon as pt received gadolinium. RN can release when ready. (RN notified) Please check phos q4h and supplement aggressive to maintain levels >2 at all times to avoid rhabdomyolysis Follow-up vitamin D levels Accurate Is/Os Avoid nephrotoxins as able Discussed with primary team Please direct all questions/concerns to Qgenda --> Internal Medicine --> Nephrology --> Ross Consults Josefina Cary MD Division of Nephrology [facility] Pager [phone] OBJECTIVE Vitals: BP 129/61 Pulse 82 Temp 99.9 F (37.7 C) (Bladder) Resp 11 Ht 1.549 m (5' 1) Wt 113.3 kg (249 lb 12.5 oz) SpO2 96% BMI 47.20 kg/m Smoking Status Unknown I/O last 3 completed shifts: In: 4619.3 [I.V.:2230.4; NG/GT:240; IV Piggyback:749; Dialysis:1400] Out: 2301 [Urine:900] Scheduled Medications acyclovir 5 mg/kg (Adjusted) Intravenous Q24H bisacodyl 10 mg Rectal Daily cefTRIAXone 2 g Intravenous Q12HNS chlorhexidine 15 mL Mouth/Throat Q12H [START ON 05/07/2024] dialysate Dialysis Once in dialysis faMOTIdine 20 mg Oral Daily Or faMOTIdine 20 mg Per NG tube Daily Or famotidine (PF) 20 mg Intravenous Daily [Held by provider] heparin 7,500 Units Subcutaneous Q8H 0800/1600/2200 lacosamide 100 mg Intravenous Q12HNS Levothyroxine 125 mcg Oral Before BKF ProSource TF 1 Package Nasogastric Daily Senna 8.6 mg Per NG tube Q12H vitamin B complex/vitamin C/folic acid (NEPHRONEX) 5 mL Per NG tube Daily Water liquid (free water) 30 mL Per NG tube Q4H Physical Examination: Constitutional: critically ill, intubated Chest: On mech vent Cardiovascular: RRR Abdominal: obese, soft, no grimace to palpation Extremities: Trace LE edema Dialysis Access: LIJ temp line Relevant Data: Lab Results Component Value Date SODIUM 138 05/06/2024 POTASSIUM 4.1 05/06/2024 CHLORIDE 104 05/06/2024 CO2 24 05/06/2024 BUN 28 (H) 05/06/2024 CREATSERUM 2.50 (H) 05/06/2024 GLUCOSE 94 05/06/2024 Lab Results Component Value Date WBC 19.33 (H) 05/06/2024 HGB 7.1 (L) 05/06/2024 HCT 22.9 (L) 05/06/2024 PLATELET 90 (L) 05/06/2024 MCV 103.6 (H) 05/06/2024 Lab Results Component Value Date CALCIUM 7.4 (L) 05/06/2024 PHOSPHORUS 4.0 05/06/2024 * Nicho Mcmillan MD - 05/06/2024 9:08 AM EST Long-Term EEG Daily EEG Report: Start Time: 05/04/2024@2208 Reviewed: 05/06/2024@0000-05/06/2024@0908 History/Indication: 83yoF admitted on 05/04/2024 with suspected status epilepticus. cEEG obtained to monitor for ongoing seizures. Medications: apixaban 10 mg Per NG tube Q12H Followed by [START ON 05/17/2024] apixaban 5 mg Per NG tube Q12H Atorvastatin 40 mg Oral QHS carveDILOL 6.25 mg Per NG tube Q12H furosemide 20 mg Intravenous Daily lacosamide 100 mg Intravenous Q12HNS Levothyroxine 125 mcg Per NG tube Before BKF ProSource TF 1 Package Nasogastric Daily vitamin B complex/vitamin C/folic acid (NEPHRONEX) 5 mL Per NG tube Daily Water liquid (free water) 100 mL Per NG tube Q4H Nepro/CarbSteady 1,000 mL (05/15/24 1525) Technical Description: This is a 21-channel digital EEG recording with time-locked video and single- channel electrocardiogram. Electrodes are placed according to the 10 to 20 International System. The patient was monitored continuously by EEG technicians with EEG reviewed intermittently and annotations made to the EEG record every two hours. Portions of this record are reviewed using bandpass filters of 1 to 70 Hz and sensitivity of 7mV/mm. EEG Findings Clinical State: intubated INTERICTAL: Background: continuous, symmetric, no PDR, absent AP gradient Superimposed Frequencies: alpha/beta , delta/theta Voltage: >20 V Reactivity: -05/04/2024@2241: EEG/clinical reactivity present to call (increased fast activity and slight head movement) State Changes: present without N2 ; quiet state notable for diffuse attenuation of fast activity Focal Asymmetry: none Rhythmic or Periodic Patterns: brief duration fluctuating 0.5-1Hz SI-GPD w/ TW morphology Sporadic ED's: none Brief Rhythmic Discharges: none EKG: NSR ICTAL / EVENTS: Seizure: none Other Clinical Events: none Activation Procedures Hyperventilation: N/A Photic stimulation: N/A Summary EEG findings: Diffuse slowing/disorganization SI-GPD w/ TW No EKG abnormality Impression: Nonspecific moderate diffuse encephalopathy This is an ongoing cEEG study and this note is updated periodically. The complete report will be available when the study is ended. Nicho Mcmillan MD Agent Based Modeler Department of Neurology, Epilepsy Division * Taryn Lyon [facility] - 05/06/2024 7:30 AM EST Department of Pharmacy Renal Documentation Note Patient: Mari Lopez Room/Bed: [facility] Assessment and Plan: The patient was initiated on intermittent hemodialysis. The current medication profile was reviewedfor appropriate dosing and timing and any contraindications to prescribed therapies. The following adjustments have been made: Ampicillin was adjusted to 2 gm every 12 hours, acyclovirto 400 mg (5 mg/kg based on adj weight) every 24 hours, and the vancomycin was timed 48 hours from the last dose with iHD given between doses. I have modified the orders in IHIS to reflect the above plan. A pharmacist will continue to follow patient and recommend drug levels and dose changes as clinically appropriate. Please contact with any questions, Name: Taryn Lyon RPH Phone: [phone] Date/Time: 05/06/2024 7:31 AM * Nicho Mcmillan MD - 05/05/2024 11:59 PM EST Long-Term EEG Daily EEG Report: Start Time: 05/04/2024@8 Reviewed: 05/04/2024@2208-05/05/2024@9690 History/Indication: 83yoF admitted on 05/04/2024 with suspected status epilepticus. cEEG obtained to monitor for ongoing seizures. Medications: [START ON 05/06/2024] acyclovir 5 mg/kg (Adjusted) Intravenous Q24H ampicillin 2 g Intravenous Q12H bisacodyl 10 mg Rectal Daily cefTRIAXone 2 g Intravenous Q12HNS chlorhexidine 15 mL Mouth/Throat Q12H faMOTIdine 20 mg Oral Daily Or faMOTIdine 20 mg Per NG tube Daily Or famotidine (PF) 20 mg Intravenous Daily heparin 7,500 Units Subcutaneous Q8H 0800/1600/2200 lacosamide 100 mg Intravenous Q12HNS Levothyroxine 125 mcg Oral Before BKF Magnesium sulfate 4 g Intravenous Once vancomycin 20 mg/kg (Adjusted) Intravenous Q72H norepinephrine Stopped (05/04/242138) Propofol Stopped (05/05/24224) Sodium chloride 0.9% 100 mL/hr at 05/05/24 1210 Technical Description: This is a 21-channel digital EEG recording with time-locked video and single- channel electrocardiogram. Electrodes are placed according to the 10 to 20 International System. The patient was monitored continuously by EEG technicians with EEG reviewed intermittently and annotations made to the EEG record every two hours. Portions of this record are reviewed using bandpass filters of 1 to 70 Hz and sensitivity of 7mV/mm. EEG Findings Clinical State: intubated INTERICTAL: Background: continuous, symmetric, no PDR, absent AP gradient Superimposed Frequencies: alpha/beta , delta/theta Voltage: >20 V Reactivity: -05/04/2024@2241: EEG/clinical reactivity present to call (increased fast activity and slight head movement) State Changes: present without N2 ; quiet state notable for diffuse attenuation of fast activity Focal Asymmetry: none Rhythmic or Periodic Patterns: brief duration fluctuating 0.5-1Hz SI-GPD w/ TW morphology Sporadic ED's: none Brief Rhythmic Discharges: none EKG: NSR ICTAL / EVENTS: Seizure: none Other Clinical Events: none Activation Procedures Hyperventilation: N/A Photic stimulation: N/A Summary EEG findings: Diffuse slowing/disorganization SI-GPD w/ TW No EKG abnormality Impression: Nonspecific moderate diffuse encephalopathy This is an ongoing cEEG study and this note is updated periodically. The complete report will be available when the study is ended. Nicho Mcmillan MD Agent Based Modeler Department of Neurology, Epilepsy Division * Juwan Campbell Student - 05/05/2024 2:55 PM EST Department of Pharmacy Admission Medication Reconciliation Note Patient: Mari Lopez Room/Bed: [facility] I have reviewed the patient's home medication list with the following sources Patient's family member/caregiver (Alex Sawyer, ), Dispense Report, and OARRs. I have also reviewed this list with the pharmacist. I am recommending the following changes to the home medication list. These recommendations are considered preliminary until attestation of this note by a pharmacist. Added to Home Medications: Cyclobenzaprine 10 MG tablets (Take one tablet by mouth three times a day as needed for muscle pain) Zolpidem Tartrate 10 MG tablets (Take one tablet by mouth at bedtime each day) Deleted from Home Medications: N/A Edits to Home Medications: Patient's caregiver states that she takes aspirin 81 MG Chew Tab chewable tablet by mouth twice a day rather than once a day. Patient's caregiver states she takes over the counter Extra Strength Tylenol 500 MG by mouth daily as needed for pain. Patient's caregiver states that she takes over the counter Miralax as needed for constipation. Other Comments: The patient's allergies have been reviewed with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 Visualization severely degraded by motion. Evaluation for spinal cord signal is significantly degraded by motion and Puga artifact. Cannot exclude myelopathic cord signal. No definite myelopathic cord signal is visualized in the cervical spine. Suspected Puga artifact artifact in the upper thoracic spine. CHEST 1 VIEW PORTABLE Final Result IMPRESSION: Patient is rotated to the left. Medial bibasilar opacities appear slightly improved or more likely atelectasis in the setting of improved lung volumes. Mild central bronchial wall cuffing can be seen with early edema or bronchitis. CHEST 1 VIEW PORTABLE Final Result IMPRESSION: No evidence of pneumomediastinum or subcutaneous gas on radiograph. ABDOMEN 1 VIEW PORTABLE Final Result IMPRESSION: Improved ileus without residual dilated small bowel. BRAIN WITH AND WITHOUT CONTRAST Final Result IMPRESSION: Motion artifact on multiple pulse sequences degrades evaluation. Questionable small focus of abnormal cortical/subcortical FLAIR signal in the medial right parietal lobe. This could be artifactual or potentially related to postictal changes. PLAIN FILM FOR NEURO EXAM Final Result IMPRESSION: No radiopaque foreign bodies to preclude MRI. Intrauterine contraceptive device in place. CHEST 1 VIEW PORTABLE Final Result IMPRESSION: 1. Right IJ CVC with tip terminating at the superior cavoatrial junction. No pneumothorax. 2. Interval retraction of the endotracheal tube which now terminates 3.6 cm above the level of the lisa, in good position. 3. Unchanged left basilar volume loss, otherwise lungs are clear. I personally viewed and interpreted these images and I have reviewed and approved this report. HEAD WITHOUT CONTRAST Final Result IMPRESSION: No acute cranial abnormality. ABDOMEN 1 VIEW PORTABLE Final Result IMPRESSION: Enteric tube in stomach. Similar visualized dilated small bowel loops. CHEST 1 VIEW PORTABLE Final Result IMPRESSION: 1. Endotracheal tube at the level the lisa, suggest adjustment. 2. Other support device as described above, in appropriate positions. 3. Left basilar volume loss. No pneumothorax. I, Marva Wallis MD have discussed the critical finding/s of endotracheal tube malposition with PRATIK ENNIS on 05/05/2024 9:59 AM. I personally viewed and interpreted these images and I have reviewed and approved this report. ABDOMEN 1 VIEW PORTABLE Final Result IMPRESSION: 1. Enteric tube projects over the stomach. 2. Mild gaseous distention of small bowel may reflect ileus. Summary of last selected lab results and date obtained: Lab Results Component Value Date WBC 8.81 05/17/2024 HGB 7.4 (L) 05/17/2024 HCT 25.0 (L) 05/17/2024 PLATELET 428 (H) 05/17/2024 MCV 102.5 (H) 05/17/2024 Lab Results Component Value Date SODIUM 141 05/17/2024 POTASSIUM 4.2 05/17/2024 CHLORIDE 106 05/17/2024 CO2 28 05/17/2024 BUN 61 (H) 05/17/2024 CREATSERUM 1.68 (H) 05/17/2024 GLUCOSE 93 05/18/2024 Lab Results Component Value Date ALT 11 05/04/2024 AST 23 05/04/2024 ALKPHOS 84 05/04/2024 BILITOTAL 0.5 05/04/2024 BILIDIRECT 0.1 05/04/2024 FEES: some concerns of aspiration possibly related to NGT and ongoing laryngeal edema MBS: aspiration of thin and nectar liquids and laryngeal penetration of honey Brief Summary of Labs for Discharge Summary: No discharge procedures on file. Current Outpatient Meds: Medication List for when you go home START taking these medications Morning Afternoon Evening Bedtime As Needed apixaban 5 MG TABS Take 1 tablet by mouth every 12 hours. Commonly known as: ELIQUIS For diagnoses: Acute deep vein thrombosis (DVT) of non-extremity vein Last time this was given: 5 mg on May 18, 2024 8:01 AM 1 tablet 1 tablet Atorvastatin 40 MG TABS Take 1 tablet by mouth at bedtime. Commonly known as: LIPITOR Last time this was given: 40 mg on May 17, 2024 10:35 PM 1 tablet carveDILOL 6.25 MG TABS Take 1 tablet by mouth every 12 hours. Commonly known as: COREG Last time this was given: 6.25 mg on May 18, 2024 8:01 AM 1 tablet 1 tablet Lacosamide 100 MG TABS Take 1 tablet by mouth every 12 hours. Commonly known as: Vimpat For diagnoses: Status epilepticus Last time this was given: 100 mg on May 18, 2024 12:35 PM 1 tablet 1 tablet CONTINUE taking these medications Morning Afternoon Evening Bedtime As Needed acetaminophen 500 MG TABS Take 1 tablet by mouth daily as needed for Other (Pain). Commonly known as: TYLENOL Last time this was given: 650 mg on May 17, 2024 8:42 AM 1 tablet Cholecalciferol 25 MCG (1000 UT) CAPS Take 1 capsule by mouth daily. 1 capsule ferrous sulfate 324 (65 Fe) MG tab DR tablet Take 1 tablet by mouth daily. 1 tablet furOSEmide 40 MG TABS Take 1 tablet by mouth daily. Commonly known as: LASIX Last time this was given: 40 mg on May 18, 2024 8:01 AM 1 tablet Levothyroxine 125 MCG TABS Take 1 tablet by mouth every morning before breakfast. Commonly known as: SYNTHROID Last time this was given: 125 mcg on May 18, 2024 5:38 AM 1 tablet nitroGLYCERIN 0.[address] 1 tablet under tongue every 5 minutes as needed for Chest pain. max = 3 doses. If CP persistsafter 1st dose, call 911 Commonly known as: NITROSTAT 1 tablet omeprazole [address] capsule Take 1 capsule by mouth daily. Commonly known as: PRILOSEC 1 capsule Polyethylene glycol 17 g PACK packet Take 1 packet by mouth daily as needed for Constipation. Commonly known as: MIRALAX 1 packet zolpidem 10 MG TABS Take 1 tablet by mouth at bedtime. Commonly known as: AMBIEN 1 tablet STOP taking these medications Ascorbic Acid 1000 MG TABS aspirin 81 MG CHEW chewable tablet Cyclobenzaprine 10 MG TABS Commonly known as: FLEXERIL Gabapentin 300 MG CAPS Commonly known as: NEURONTIN lisinopril-hydrochlorothiazide 10-12.5 MG TABS Commonly known as: PRINZIDE Vibegron 75 MG TABS Follow-up: ADOLFO Aguillon [address] [id number] Follow up Please call to schedule a (an), appointment, for hospital follow up, in 7-10 days Cosigned by Nicol Judge MD at 05/18/2024 3:28 PM EST Associated attestation - Nicol Judge MD - 05/18/2024 3:28 PM EST Attending Addendum (GC): This patient was discussed, examined, and evaluated with the resident physician on the day of the encounter. I have independently confirmed essential components of the medical history and the physical examination. I agree with the above outlined discharge summary, with the following addendum: Mari Lopez was admitted for evaluation and treatment of status epilepticus, JOSE, acidemia, and hypotension, necessitating ICU admission and intubation. These issues resolved over the course of her stay. She has ongoing dysphagia as noted, but had difficulties tolerated nasogastric tube and did not wish to have this replaced prior to discharge. This can be monitored over time. She will need to workwith a Speech/Swallow therapist to help with swallowing techniques. Principal Problem: Status epilepticus Active Problems: Anemia of chronic disease Thrombocytopenia (Low Platelets) Acute on chronic heart failure with preserved ejection fraction Acute kidney injury superimposed on CKD Acute deep vein thrombosis (DVT) of non-extremity vein Severe obesity (BMI 35.0-39.9) with comorbidity Essential hypertension 37 minutes spent on discharge of this patient. Nicol Judge MD, FACP Plate Sensitizer of Clinical Medicine Division of General Internal Medicine and Geriatrics documented in this encounterUniversity [facility] Procedure note* Shahram Nuñez, CITY PLANNING TEACHER - 05/17/2024 11:24 AM ESTAssociated Order(s): SPEECH MODIFIED BARIUM SWALLOW Acute Care Speech Language Pathology Modified Barium Swallow Evaluation Note Diet Recommendations: Recommended Method of Nutrition: Combination of PO and NPO Recommended Diet Grade: dysphagia- pureed (IDDSI 4) Recommended Liquid Consistency: liquid- mildly thick (IDDSI 2)/nectar Recommended Medication Administration (as appropriate per MD): In puree Swallow Strategies: Liquid wash, Multiple swallows, Alternate solids/liquids Type of Cues/Supervision: intermittent supervision Assistance: nurse/aide Discharge Recommendations: Based on the below outcome measures/assessment score(s) and CITY PLANNING TEACHER clinicaljudgment, discharge destination recommendation is: SNF. Patient is a good candidate for discharge to SNF due to the following barriers: Need for 1:1 assist to ensure safety with all PO intake and Cognitive impairments that impact safety and independence. Additional supporting factors include: Impaired swallow function limiting nutritional status and safety with oral intake, Impaired cognitive skills limiting safety/insight, Impaired cognitive skills limiting functional problem solving in immediate environment, and Impaired cognitive skills limiting independence. Acute CITY PLANNING TEACHER Outcomes Tracking Communicate basic wants and needs?: yes Demo insight/appreciation of deficits?: unable to determine Complete basic problem solving?: unable to determine Current therapy frequency recommendation in acute care: Swallow Therapy Frequency: 3 times a week Date of Procedure: 05/17/2024 General Patient Information Name: Mari Lopez Gender: female Date of : 1940 Diagnosis and Associated Codes: ICD-10-CM 1. Status epilepticus G40.901 2. Acute kidney injury N17.9 3. Acute respiratory failure, unspecified whether with hypoxia or hypercapnia J96.00 4. Anemia, unspecified type D64.9 5. Chronic kidney disease, stage IV (severe) N18.4 6. Encephalopathy acute G93.40 7. Hypovitaminosis D E55.9 8. Heart failure with preserved ejection fraction, unspecified HF chronicity I50.30 9. Benign hypertension I10 Past Medical History: Diagnosis Date (HFpEF) heart failure with preserved ejection fraction CKD (chronic kidney disease) stage 4, GFR 15-29 ml/min COPD (chronic obstructive pulmonary disease) HTN (hypertension) Lymphedema Obesity TADEO (obstructive sleep apnea) VTE (venous thromboembolism) No past surgical history on file. Relevant History: NA Patient History Comments: On 05/01/24 [facility] and thenshe became non responsive and hypotensive requiring norepinephrine. EEG noted GPDs and neurology was consulted and reviewed EEG who believed it met criteria status epilepticus. Patient was transferred to [facility] on 05/04 for further neurological medical management. She was admitted to the MICU for critical care management. Per H&P: The patient initially presented to the [facility] ED 05/01/24 with AMS found to havesevere metabolic derangements (pH 7.0, acute renal failure with uremia, hyperkalemia, acidosis). She was intubated, initiated on broad spectrum antibiotics, and placed on vasopressors after inadequate response to 30 cc/kg IVF resuscitation. CTH on admission reportedly normal (reports not available or included in transfer paperwork, [facility] radiology contacted to push images). An infectious workup wasnotable only for E. Coli UTI (blood cultures remained negative). The patient was noted to have possible seizure (right arm twitching) and spot EEG was obtained w/ findings concerning for possible status epilepticus. Per neurology recommendations, the patient received a keppra load and was placed oncEEG. Interval history: LP obtained on 05/05 which was negative, placed on empiric meningitis/encephalitis coverage from 05/05 to 2/1. cEEG discontinued on 05/06 and MRI brain acquired with motion artifact and possible abnormal cortical/subcortical FLAIR signal in right parietal lobe. Started renal replacement 05/06 for renalclearance only and weaned off of vasopressors. Renal replacement sessions complicated by frequent clotting and discontinued given evidence of renal recovery, urine production. MRI cspine acquired ue to concern for lack of extremity movement and bilateral upgoing babinski. Extubated 05/08 with subsequent laryngeal edema, received rac epi and decadron. Ultimately deemed stable for transfer to the floor on 05/09. Prior Study: FEES 05/13: Mari presents with moderate oropharyngeal dysphagia with laryngeal edema negatively impacting airway protection, in the setting of status epilepticus and intubated at OSH. Patient extubatedon 05/08 and had post extubation stridor. Of note, patient demonstrated difficulty managing secretions at baseline. Oral phase characterized by adequate acceptance with teaspoon and straw. Solid foods were not attempted at this time due to patient safety concerns. Pharyngeal phase characterized by reduced hyolaryngeal excursion, absent epiglottic inversion but complete glottic closure. Notable for aspiration of pooled secretions, thin liquids and mildly thick liquids. Aspiration events occurred primarily after the initial swallow due to residue along post cricoid and secondary to retro flow from esophagus. Patient demonstrated adequate sensory response to all penetration/aspiration events. Atthis time, patient's primary impairment appears related to ongoing laryngeal edema and NGT. Consider transitioning to DHT. Subjective information: Patient arrived at [facility] via transport. Reports significant back pain when transported/moved in chair. Agreeable to study. Pain: General Pain Documentation (Adult, OB, Peds) Presence of Pain: reports pain/discomfort Presence of Pain Score (Auto-calculated): 0 Comfort/Acceptable General Pain Level/Goal: 1 (Simultaneous filing. User may not have seen previousdata.) DVPRS (Defense and Veterans Pain Rating Scale) DVPRS: Rest: (unable to rate) DVPRS: Activity: (unable to rate) General Pain Descriptors Pain Frequency: frequent Pain Quality: aching Factors That Aggravate Pain: activity Factors That Relieve Pain: repositioning Respiratory Status: O2 Sat (%): 96 % (05/17 1135) O2 Device: room air (05/17 1135) Assessment: Consistencies Assessed: This study was conducted in the lateral view. Patient was presented with the following barium consistencies: Varibar Thin Barium: teaspoon, single cup drink, and straw Varibar [place] Barium: teaspoon, single cup drink, and straw Varibar Thin Honey Barium: teaspoon Varibar Pudding Barium: teaspoon Regular contrasted with Varibar Paste Barium: regular fran cracker CRANIAL NERVE EXAMINATION: Cranial Nerve Exam CN V (Trigeminal) strong equal bilateral strength of masseter and temporal muscles CN VII (Facial) strong bilateral movement of upper and lower face CN IX (glossopharyngeal) voice quality strong and clear CN X (Vagus) uvula is midline CN XI (Accessory) not tested CN XII (Hypoglossal) tongue midline with strong equal strength Oral phase: Oral Phase Lip Closure: interlabial escape, no progression to anterior lip Tongue Control During Bolus Hold: posterior escape of less than half of bolus Bolus Preparation/Mastication: timely and efficent chewing and mashing Bolus Transport/Lingual Motion: repetitive/disorganized tongue motion Oral Residue: residue collection on oral structures Location of Oral Residue: tongue, floor of mouth Initiation of Pharyngeal Swallow: bolus head in pyriforms Pharyngeal Phase: Pharyngeal Phase Soft Palate Elevation: no bolus between soft palate and posterior pharyngeal wall Laryngeal Elevation: partial movement of thyroid cartilage and/or partial approximation of arytenoids to epiglottic petiole Anterior Hyoid Excursion: partial anterior movement Epiglottic Movement: partial inversion Laryngeal Vestibule Closure-Height of Swallow: incomplete Pharyngeal Stripping Wave: present - complete Pharyngeal Contraction in A/P View: (NA) Pharyngoesophageal Segment Opening: partial distention/duration, partial obstruction of flow Tongue Base Retraction: narrow column of contrast between tongue base and posterior pharyngeal wall Pharyngeal Residue: residue collection on pharyngeal structures Location of Pharyngeal Residue: pyriform sinuses, valleculae, tongue base Esophageal Phase: Esophageal Phase Esophageal Clearance In The Upright Position: (NA) Airway Events: Airway Events: Penetration / Aspiration Scale (PAS) Thin: 6 - Material enters the airway, passes below the vocal folds, and is ejected into the larynx or out of the airway, 7 - Material enters the airway, passes below the vocal folds, and is not ejected from the trachea despite effort (unable to assess full airway clearance) Liquid- mildly thick (IDDSI 2)/nectar: 6 - Material enters the airway, passes below the vocal folds, and is ejected into the larynx or out of the airway, 2 - Material enters the airway, remains abovethe vocal folds, and is ejected from the airway (noted aspiration occurred during initial trial; difficult to determine if aspiration of mildly thick liquids vs thin liquids that were sitting within the pyriform sinuses) Liquid- moderately thick (IDDSI 3)/honey: 2 - Material enters the airway, remains above the vocal folds, and is ejected from the airway Dysphagia- pureed (IDDSI 4): 1 - Material does not enter the airway Mixed Texture: 1 - Material does not enter the airway (regular solids with mildly thick liquid wash) Impressions: Mari Lopez presents with mild-moderate oropharyngeal dysphagia consistent with Dysphagia Outcome Severity Scale (MIRTA) Level: 4. Limited visualization during study due to body habitus. Adequate mastication of regular solids, but noted disorganized oral transit with puree and regular solid consistencies. No swallow initiation observed with regular solid trials in isolation, resulting in bolus progressing into the pharynx and needing a liquid wash to clear. Generalized oral weakness (likely due toprolonged NPO status, recent intubation) resulted in mild-moderate amount of residue on lingual surface and floor of mouth with liquid consistencies. Premature spillage vs. pharyngeal residue vs retrograde flow from prior boluses (difficult to determine due to impaired visualization) noted at the level of the pyriform sinuses prior to swallow initiation. Bolus sitting within the pyriforms in addition to decreased epiglottic inversion (? If impacted by contact with NGT), decreased laryngeal elevation, reduced laryngeal vestibular closure (suspect impacted by known laryngeal edema as visualizedon FEES) resulted in penetration of mildly thick liquids and moderately thick liquids and aspiration of thin liquids during the swallow. Patient consistently throat clearing/coughing in response to aspiration; though difficult to determine effectiveness due to body habitus limiting visualization. Patient with collection of residue at level of pyriform sinuses post swallow likely impacted by reduced duration of PES opening (though limited visualization of UES due to body habitus.) Noted aspiration occurred x1 during mildly thick liquid trial; however, unable to determine if thiswas thin liquids vs. mildly thick liquids given presence of pharyngeal residue. This only occurred with the initial tsp of mildly thick liquids with no additional aspiration observed. Given patient's above deficits and AMS, recommend initiating puree diet/mildly thick liquids with initial 1:1 supervision for single bites/sips and utilizing liquid wash. Only feed when fully alert. Level 4: Mild-moderate dysphagia: Intermittent supervision/cueing, one or two consistencies restricted. May exhibit one or more of the following. Retention in pharynx cleared with cue. Retention in the oral cavity that is cleared with cue. Aspiration with one consistency, with weak or no reflexive cough. Or airway penetration to the level of the vocal cords with cough with two consistencies. Or airway penetration to the level of the vocal cords without cought with one consistency Patient Education/Instruction Learners: Patient Education provided: Role of this discipline, Plan of care, IDDSI levels/testing, Dysphagia recommendations/impressions, Dysphagia risk factors Teaching method: Verbal Education/Instruction Learner response: Needs review Learning preferences: Auditory Learning considerations: Cognition Patient Instruction/Education comments: Patient educated regarding purpose of study, future POC, however, further education at bedside warranted Plan for next session: 05/17: good candidate, ongoing PO trials and dysphagia tx RECOMMENDATIONS: Swallow Recommendations Recommended Method of Nutrition: Combination of PO and NPO Recommended Diet Grade: dysphagia- pureed (IDDSI 4) Recommended Liquid Consistency: liquid- mildly thick (IDDSI 2)/nectar Recommended Medication Administration (as appropriate per MD): In puree Swallow Strategies: Liquid wash, Multiple swallows, Alternate solids/liquids Type of Cues/Supervision: intermittent supervision Assistance: nurse/aide Acute CITY PLANNING TEACHER Goals Plan of Care by Shahram Nuñez, CITY PLANNING TEACHER at 05/17/2024 9:40 AM Version 1 of 1 Problem: Dysphagia Goal: Effortful Swallow Goal - Patient will complete repetitions of effortful swallow until reaching a self-reported level of fatigue (7/10 rating) to improve pharyngeal clearance and airway protection during the swallow Outcome: Ongoing Goal: Solids - Patient will accept 5-10 trials of advanced solids showing adequate mastication, bolus formation and oral clearance without signs of pharyngeal residue or penetration/aspiration, to determine readiness for diet advancement Outcome: Ongoing Goal: Bolus challenge - Patient will accept trials of thin liquids x5-10 trials, given minimal cuesfor use of strategies to improve bolus control/timing of swallow initiation with no signs of aspiration to determine readiness for repeat study or diet Outcome: Ongoing Problem: Dysphagia Goal: Ongoing Assessment - Patient will participate in ongoing assessment by accepting various PO consistency trials with appropriate participation/oral acceptance and no significant respiratory complications to determine readiness for repeat study Outcome: Met Goal: MBS - Patient will participate in Modified Barium Swallow (MBS) Study to objectively assess oropharyngeal swallow function to most appropriately guide CITY PLANNING TEACHER plan of care Outcome: Met Time In: 40 Time Out: 1020 Total Visit Time: 40 minutes Total Treatment Time (skilled, billable minutes): 40 minutes CITY PLANNING TEACHER Evaluation and Treatment Time MBS/Motion Fluoroscopic Swallowing Eval 82147: 40 Speech Language Pathologist: AZAEL Blas Time In: 40 Time Out: 1020 Total Visit Time: 40 minutes Total Treatment Time (skilled, billable minutes): 40 minutes Non-billable assistance during session: none Assisted by during session: Kavya ADDISON, Imani GANNON PPE used during patient interaction: gloves Patient location/status at end of session: (transport bed) Patient alarms at end of session: none altered CITY PLANNING TEACHER Evaluation and Treatment Time MBS/Motion Fluoroscopic Swallowing Eval [id number]: 40 Upon discontinuation of Acute Care Speech Therapy Services or patient discharge from the hospital this note represents the current Speech Therapy Discharge Summary * AZAEL Carvalho - 05/13/2024 1:25 PM ESTAssociated Order(s): FLEXIBLE ENDOSCOPIC EVALUATION OF SWALLOWING Images from the original note were not included. Acute Care Speech-Language Pathology Flexible Endoscopic Evaluation of Swallowing (FEES) Diet Recommendations: Recommended Method of Nutrition: NPO, Short-term alternate nutrition (Ok for ice chips) Type of Cues/Supervision: 1:1 supervision Assistance: nurse/aide, family Discharge Recommendations: Based on the below outcome measures/assessment score(s) and CITY PLANNING TEACHER clinicaljudgment, discharge destination recommendation is: Pending instrumental swallow assessment. Acute CITY PLANNING TEACHER Outcomes Tracking Communicate basic wants and needs?: yes Demo insight/appreciation of deficits?: yes Complete basic problem solving?: unable to determine Current therapy frequency recommendation in acute care: Swallow Therapy Frequency: 5 times a week Date of Procedure: 05/13/2024 Patient Information Name: Mari Lopez Gender: female Date of : 1940 Admit Date: 05/04/2024 Diagnosis and Associated Codes ICD-10-CM 1. Status epilepticus G40.901 2. Acute kidney injury N17.9 3. Acute respiratory failure, unspecified whether with hypoxia or hypercapnia J96.00 4. Anemia, unspecified type D64.9 5. Chronic kidney disease, stage IV (severe) N18.4 6. Encephalopathy acute G93.40 7. Hypovitaminosis D E55.9 8. Heart failure with preserved ejection fraction, unspecified HF chronicity I50.30 9. Benign hypertension I10 Past Medical History: Diagnosis Date (HFpEF) heart failure with preserved ejection fraction CKD (chronic kidney disease) stage 4, GFR 15-29 ml/min COPD (chronic obstructive pulmonary disease) HTN (hypertension) Lymphedema Obesity TADEO (obstructive sleep apnea) VTE (venous thromboembolism) No past surgical history on file. Reason for Study: Orders in place for FEES examination, which was indicated based on results of clinical evaluation on 05/12/24. Patient History Comments: Mari Lopez s a 83 y.o. female who was admitted on 05/04/2024 as a transfer from [facility]. Initially presented to the [facility] ED 05/01/24 with AMS found to have severe metabolic derangements (pH 7.0, acute renal failure with uremia, hyperkalemia, acidosis). She was intubated, initiated on broad spectrum antibiotics, and placed on vasopressors after inadequate response to 30 cc/kg IVF resuscitation. CTH on admission reportedly normal (reports not available or included in transfer paperwork, [facility]SH radiology contacted to push images). An infectious workup was notable only for E. Coli UTI (blood cultures remained negative). The patient was noted to have possible seizure (right arm twitching) and spot EEG was obtained w/ findings concerning for possible statusepilepticus. Per neurology recommendations, the patient received a keppra load and was placed on cEEG. Past Medical History: Diagnosis Date (HFpEF) heart failure with preserved ejection fraction CKD (chronic kidney disease) stage 4, GFR 15-29 ml/min COPD (chronic obstructive pulmonary disease) HTN (hypertension) Lymphedema Obesity TADEO (obstructive sleep apnea) VTE (venous thromboembolism) Subjective: Patient was seen at bedside, alert and cooperative. Patient pleasantly confused. Respiratory Status: O2 Sat (%): 94 % (05/13 1120) O2 Device: room air (05/13 1120) Lines/Tubes/Drains: Lines/Tubes/Drains (Rehab Status): Tube feed, Telemetry Pain General Pain Documentation (Adult, OB, Peds) Presence of Pain: denies pain/discomfort Presence of Pain Score (Auto-calculated): 0 Comfort/Acceptable General Pain Level/Goal: 1 (Simultaneous filing. User may not have seen previousdata.) DVPRS (Defense and Veterans Pain Rating Scale) DVPRS: Rest: 5- moderate pain (Simultaneous filing. User may not have seen previous data.) DVPRS: Activity: 5- moderate pain (Simultaneous filing. User may not have seen previous data.) General Pain Descriptors Pain Frequency: frequent Pain Quality: aching Factors That Aggravate Pain: activity Factors That Relieve Pain: repositioning Prior CITY PLANNING TEACHER history: No prior CITY PLANNING TEACHER history per chart review Current Method of Nutrition NPO with short term nutritional support - NGT Cranial Nerve Exam CN V (Trigeminal) strong equal bilateral strength of masseter and temporal muscles CN VII (Facial) strong bilateral movement of upper and lower face CN IX (Glossopharyngeal) voice quality strong and clear CN X (Vagus) heart rate and rhythm are normal CN XI (Accessory) raises head off pillow without difficulty, weak or unequal resistance to rotationof head CN XII (Hypoglossal) clearly articulated speech FEES Procedure Details Procedure Performed & Read by: AZAEL Carvalho Scope Serial #: [id number] Feeder Name: DocSend Topical Anesthetic: None Patient was positioned : Upright. The flexible endoscope was passed through the nasal passage to the level of oropharynx. Food and liquids were tinted with food coloring for easier observation. The scope was passed through the left nares without difficulty. Anatomic/Physiologic Assessment: Velopharyngeal port: Complete closure Base of tongue/lingual tonsils: Normal Vocal Fold Edge Right: Normal Vocal Fold Edge Left: Normal Abductory/Adductroy Movement: Normal- arytenoid edema R>L Ventricular Folds: Normal Pharyngeal contraction for pitch glide: Impaired Hypopharynx: Normal Epiglottis: Normal Secretion appearance: Frothy, White Secretion location: Posterior pharyngeal wall, Laryngeal vestibule, Pyriform, Post cricoid [place] Secretion Scale (NZSS) The [place] Secretion Scale (NZSS) has been developed for comprehensive assessment of accumulated secretions during endoscopy. The [place] Secretion Scale has potential to predict pneumonia in patients irrespective of their penetration/aspiration scores. The scale rates secretion severity under the subcategories location, amount and response. Patient's scores observed during today's assessment are: Location 2: Secretions in laryngeal vestibule (beyond healthy lubrication of mucosa) Amount in pyriform fossae 1: Secretions in pyriform fossae, not yet full (20-80%) Response (do not score if no significant pooling of secretions) -Normal airway responses in the pharynx or laryngeal vestibule may include spontaneous coughing, throat clearing, &/or swallowing 2: Ineffective attempts to clear secretions from laryngeal vestibule Total: 5 (maximum 7) Toby Paez, Alana Paez, Beba Aguayo, Tad Manning, Amish S. Predictive Value of the [place] Secretion Scale (NZSS) for Pneumonia. Dysphagia. 2018 May;33(1):115-122. doi: 10.1007/y65759-272-5819-y. Epub 2016Nov 26. PMID: [id number]. Evans Secretion Scale (LAVERNE) The Evans Secretion Scale (LAVERNE) has been developed for a comprehensive assessment of accumulated secretions during endoscopy. Research has shown strong correlations between the Evans Secretion Scale and the Penetration-Aspiration Scale: the more severe the secretion, the higher the risk toward development of deeper penetration or aspiration. Patient's score observed during today's assessment is: 2: Any secretions that changed from a 1 rating to a 3 rating during the observation period Praful CW, Alma Delia CT, Sharp CC, Dave CJ. Evans secretion scale and fiberoptic endoscopic evaluation of swallowing in predicting aspiration in dysphagic patients. Eur Arch Otorhinolaryngol. 2017 Pradip;274(6):8316-1943. doi: 10.1007/[id number]-q. Epub 2017 Jun 15. PMID: [id number]. Consistencies Tested: Consistencies Tested Ice chip: 1/2 tsp Thin Liquid : 1 tsp Liquid- mildly thick (IDDSI 2)/nectar: 1 tsp, Straw Swallow Observations Premature spill: Laryngeal vestibule Swallow initiation: Laryngeal vestibule Tongue base retraction: Impaired Nasopharyngeal entry: None Epiglottic Retroversion: Impaired Pharyngeal Residue: residue collection on pharyngeal structures Location of Pharyngeal Residue: pyriform sinuses Backflow from esophagus: Present Airway Events: Penetration / Aspiration Scale (PAS) Ice: 6 - Material enters the airway, passes below the vocal folds, and is ejected into the larynx or out of the airway Thin: 6 - Material enters the airway, passes below the vocal folds, and is ejected into the larynx or out of the airway, 3 - Material enters the airway, remains above the vocal folds, and is not ejected from the airway Liquid- mildly thick (IDDSI 2)/nectar: 3 - Material enters the airway, remains above the vocal folds, and is not ejected from the airway, 6 - Material enters the airway, passes below the vocal folds,and is ejected into the larynx or out of the airway [place] Pharyngeal Residue Severity Rating Scale: (Connor Fields, Ilana Petersen, & Breanne Ferguson. (2015). The bethune pharyngeal residue severity rating scale: an anatomically defined and image-based tool. Dysphagia, 30, 321-809.) Ice Chips Valleculae Severity Rating: Trace (1-5%), Trace Coating of the Mucosa Pyriform Sinus Rating: Trace (1-5%), Trace Coating of Mucosa Thin Liquids (IDDSI 0) Valleculae Severity Rating: Trace (1-5%), Trace Coating of the Mucosa Pyriform Sinus Rating: Trace (1-5%), Trace Coating of Mucosa Mildly Thick Liquids (IDDSI 2)/[place] Valleculae Severity Rating: Trace (1-5%), Trace Coating of the Mucosa Pyriform Sinus Rating: Trace (1-5%), Trace Coating of Mucosa Still Pictures/Video: See Flexible Endoscopic Evaluation Of Swallowing under Procedures tab in [facility] for all photos and videos recorded. Outcome Measures Functional Oral Intake Score - FOIS: Level 1: Nothing by mouth Dysphagia Outcome and Severity Scale- MIRTA: Level 1: Severe dysphagia: NPO: Unable to tolerate any oral intake safely Impressions: Mari presents with moderate oropharyngeal dysphagia with laryngeal edema negatively impacting airway protection, in the setting of status epilepticus and intubated at OSH. Patient extubated on 05/08 and had post extubation stridor. Of note, patient demonstrated difficulty managing secretions at baseline. Oral phase characterized by adequate acceptance with teaspoon and straw. Solid foods were not attempted at this time due to patient safety concerns. Pharyngeal phase characterized byreduced hyolaryngeal excursion, absent epiglottic inversion but complete glottic closure. Notable for aspiration of pooled secretions, thin liquids and mildly thick liquids. Aspiration events occurred primarily after the initial swallow due to residue along post cricoid and secondary to retro flow from esophagus. Patient demonstrated adequate sensory response to all penetration/aspiration events.At this time, patient's primary impairment appears related to ongoing laryngeal edema and NGT. Consider transitioning to DHT. Recommend continue with short term nutritional support. Ice chips for comfort. Medications non-oral. Plan for Modified Barium Swallow study. Patient Education/Instruction Learners: Patient Education provided: Role of this discipline, Precautions, Plan of care Teaching method: Verbal Education/Instruction Learner response: Applies knowledge Learning preferences: Auditory Learning considerations: Cognition Plan for next session: 05/13: good prognosis, ongoing dypshagia management Acute CITY PLANNING TEACHER Goals Plan of Care by AZAEL Carvalho at 05/13/2024 10:30 AM Version 1 of 1 Problem: Dysphagia Goal: FEES - Patient will participate in Fiberoptic Endoscopic Evaluation of Swallowing (FEES) study to objectively assess pharyngeal swallow function to most appropriately guide CITY PLANNING TEACHER plan of care Outcome: Ongoing Speech Language Pathologist: AZAEL Carvalho, BCS-S Board Certified Specialist in Swallowing and Swallowing Disorders Available via [employer] Chat Time In: 1200 Time Out: 1235 Total Visit Time: 35 minutes Total Treatment Time (skilled, billable minutes): 35 minutes CITY PLANNING TEACHER Evaluation and Treatment Time FEES/Endoscopic Swallowing Eval 24255: 35 Swallowing Dysfunction Treatment 96128: 20 Non-billable assistance during session: none Assisted by during session: Med 5 PPE used during patient interaction: facemask, gloves, respirator, gown Upon discontinuation of Acute Care Speech Therapy Services or patient discharge from the hospital this note represents the current Speech Therapy Discharge Summary * Clare Adhikari MD - 05/09/2024 9:05 AM ESTAssociated Order(s): GENERAL PROCEDURE Procedure(s): EEG, ROUTINE Inpatient Routine EEG Report History: 83 year old female who presented with altered mental status. Indication: Concern for possible status epilepticus DOS: 05/08/24 Technical Description: This is a 21-channel digital EEG recording with time- locked video and single-channel electrocardiogram. Electrodes are placed according to the 10 to 20 International System. Portions of this record are reviewed using bandpass filters of 1 to 70 Hz and sensitivity of 7mV/mm EEG Findings Background: Background is continuous and symmetric with predominant polymorphic delta slowing. There is no clear PDR or AP gradient. Sleeping background: Absent Voltage: Normal Focal Asymmetry: None Reactivity: Yes Sporadic ED's: There were frequent, nonsustained runs of 1-1.5Hz generalized discharges with triphasic morphology Electrographic seizures: None Clinical Events: None Hyperventilation: Not performed Photic stimulation: Not performed Breach rhythm: None EKG: Normal Sinus Rhythm Impression: This is an abnormal inpatient routine vEEG that is characterized by severe degree of diffuse slowing consistent with nonspecific diffuse encephalopathy. The triphasics seen on this study are most likely associated with toxic or metabolic causes of encephalopathy rather than an ictal process. No seizures or epileptiform discharges were seen. Read not final until attested by attending physician. Clare Adhikari MD Neurophysiology Fellow (EEG track) PGY-5 Department of Neurology I independently reviewed the study and agree with the EEG interpretation Mulugeta Barker MD Agent Based Modeler, Department of Neurology, Epilepsy Section [facility] Cosigned by Mulugeta Barker MD at 05/09/2024 5:30 PM EST * Nicho Mcmillan MD - 05/06/2024 9:08 AM ESTAssociated Order(s): EEG GROUP HOME MONITORING STUDY NAME: Continuous video-EEG recording REFERRING PHYSICIAN: Paulino Whitehead MD / Kindra Gannon MD DATE AND TIME START OF RECORDIN05/04/2024@2208 DATE AND TIME END OF RECORDIN05/06/2024@0908 HISTORY: 83yoF admitted on 05/04/2024 with suspected status epilepticus. cEEG obtained to monitor for ongoing seizures. MEDICATIONS AT START: [acyclovir 5 mg/kg (Adjusted) Intravenous Q24H ampicillin 2 g Intravenous Q12H bisacodyl 10 mg Rectal Daily cefTRIAXone 2 g Intravenous Q12HNS chlorhexidine 15 mL Mouth/Throat Q12H faMOTIdine 20 mg Oral Daily Or faMOTIdine 20 mg Per NG tube Daily Or famotidine (PF) 20 mg Intravenous Daily heparin 7,500 Units Subcutaneous Q8H 0800/1600/2200 lacosamide 100 mg Intravenous Q12HNS Levothyroxine 125 mcg Oral Before BKF Magnesium sulfate 4 g Intravenous Once vancomycin 20 mg/kg (Adjusted) Intravenous Q72H norepinephrine Stopped (05/04/249) Propofol Stopped (05/05/24 0225) Sodium chloride 0.9% 100 mL/hr at 05/05/24 1210 TECHNICAL DESCRIPTION: This is a 21-channel digital EEG recording with time-locked video and single- channel electrocardiogram. Electrodes are placed according to the 10 to 20 International System. The patient was monitored continuously by EEG technicians with EEG reviewed intermittently and annotations made to the EEG record every two hours. Portions of this record are reviewed using bandpass filters of 1 to 70 Hz and sensitivity of 7mV/mm. DESCRIPTION: Clinical State: intubated INTERICTAL: Background: continuous, symmetric, no PDR, absent AP gradient Superimposed Frequencies: alpha/beta , delta/theta Voltage: >20 V Reactivity: -05/04/2024@2241: EEG/clinical reactivity present to call (increased fast activity and slight head movement) State Changes: present without N2 ; quiet state notable for diffuse attenuation of fast activity Focal Asymmetry: none Rhythmic or Periodic Patterns: brief duration fluctuating 0.5-1Hz SI-GPD w/ TW morphology Sporadic ED's: none Brief Rhythmic Discharges: none EKG: irregular rhythm ICTAL / EVENTS: Seizure: none Other Clinical Events: none Activation Procedures Hyperventilation: N/A Photic stimulation: N/A Summary EEG findings: Diffuse slowing/disorganization SI-GPD w/ TW EKG with irregular rhythm Clinical Impression: This 1 day cEEG was abnormal. The findings were consistent with nonspecific moderate diffuse encephalopathy. EKG channel was abnormal. Clinical correlation advised. Nicho Mcmillan MD EEG Attending Agent Based Modeler Department of Neurology, Epilepsy Division [facility] * CHRISTINE Braun - 05/05/2024 6:06 PM ESTAssociated Order(s): Lumbar Puncture Post-Procedure Diagnose(s): Status epilepticus Lumbar Puncture Procedure Start: 14:07 EST Procedure Stop: 14:25 EST Performed by: CHRISTINE Braun Authorized by: CHRISTINE Braun Location of procedure: ICU Room number: 460E Name of Stamp Pad Maker: Kasey Jane RN Jasper Protocol Written consent obtained Risks and benefits were discussed. Consent given by: son. The patient states understanding of procedure being performed. The patient's understanding of the procedure matches consent given Procedure consent matches procedure scheduled Relevant documents present and verified: N/A Test results available and properly labeled: N/A Site marked: N/A Imaging studies available: N/A Required blood products, implants, devices, and special equipment available Patient identity confirmed: arm band and hospital-assigned identification number Immediately prior to procedure a time out was called to verify the correct patient, procedure, equipment, office support assistant and site/side marked as required Anesthesia Local anesthesia used: no Local: 1% Lidocaine Sedation Patient not sedated Procedure stop date: 05/05/2024 Procedure Vital Signs Monitored Procedure Details Preparation: Patient was prepped and draped in the usual sterile fashion. Lumbar space: L4-L5 interspace Patient's position: right lateral decubitus Needle gauge: 18 Needle type: spinal needle - Quincke tip Needle length: 1.5 in Number of attempts: 2 Opening pressure: 23 cm H2O Fluid appearance: clear Tubes of fluid: 4 Total volume: 16 ml Post-procedure: site cleaned and adhesive bandage applied Patient tolerance: patient tolerated the procedure well with no immediate complications Post Procedure Procedure complications: no immediate complications Additional Info Inr Plt and allergies reviewed prior to procedure. Not on anticoagulation. Opening pressure 23 postprocedure supine for 1 hour. [facility]* Joshua Gallardo RN - 05/12/2024 4:58 PM EST VASCULAR ACCESS NOTE: Thank you for your referral to the Vascular Access Team. Consulted for placement of: [] PIV [x] Midline [] PICC [] Arms assessed for device placement, viable vessels identified: No device placed due to: [] Awaiting OPAT/final recommendations from ID [] Awaiting approval from nephrology in the presence of CKD 3 or higher [] Awaiting patient to be 24 hours fever free and/or 48 hours of negative blood cultures [] Awaiting TPN approval [] Already has adequate access for therapies prescribed [x] No viable veins (see description below) [] Patient refused [] Both arms found to have contraindications for line placement [] Continued malposition despite multiple attempts [] Accessed vein successfully, but PICC catheter would not advance [] Patient unable to give consent, no POA/unable to reach POA Additional note: Found no viable veins for PICC midline or PIV. Team notified. PICC pager [phone] PIV pager [phone] * Ying Reeder RN - 05/11/2024 6:17 PM EST VASCULAR ACCESS NOTE: Thank you for your referral to the Vascular Access Team. Consulted for placement of: [x] PIV [] Midline [] PICC [] Arms assessed for device placement, viable vessels identified: No device placed due to: [] Awaiting OPAT/final recommendations from ID [] Awaiting approval from nephrology in the presence of CKD 3 or higher [] Awaiting patient to be 24 hours fever free and/or 48 hours of negative blood cultures [] Awaiting TPN approval [] Already has adequate access for therapies prescribed [] No viable veins (see description below) [] Patient refused [] Both arms found to have contraindications for line placement [] Continued malposition despite multiple attempts [] Accessed vein successfully, but PICC catheter would not advance [] Patient unable to give consent, no POA/unable to reach POA Additional note: Spoke with Adriana BROWN, patient with 3x PIV at this time. New IV not needed PICC pager [phone] PIV pager [phone] * Joel Calderon, DO - 05/10/2024 11:55 AM EST NEUROLOGY CONSULTATION NOTE - FOLLOW UP Reason for consultation: patient transferred per [facility] neurology for status. Consult for cEEF, status management. History of present illness: Mari Lopez is an 83 y.o. female with history of HTN, CKD4, hyperparathyroidism, hypothyroidism, BAYRON, gastric bypass (2003), and TADEO who presented as a transfer for AMS w/ concern for status epilepticus. Interval History: More awake today and answering questions. Says she is doing better and that she's had good care here. Lives with her friend Cayla. Physical Examination Temp: [98.4 F (36.9 C)-99.1 F (37.3 C)] 98.6 F (37 C) Pulse (Heart Rate): [67-81] 69 Resp Rate: [13-20] 13 BP: (92-188)/(46-84) 120/56 O2 Sat (%): [95 %-99 %] 96 % Body mass index is 47.57 kg/m . General: awake, lying in bed. Neurological Exam Cognition: Awakens to name, but will close eyes to sleep quickly. Oriented to person, place, month. Language: Follows commands in all extremities. Cranial Nerves: EOMI. Pupils equal and reactive. Face symmetric with smile and closing eyes. Hearing grossly intact Tongue midline. Motor/Sensory: Will attempt to hold arms antigravity but unable to lift off the bed. Wiggling the legs equally butnot off the plane of the bed. Reflexes: 2+ throughout. Upgoing toes. Diagnostic Data Laboratory data: Lab Results Component Value Date WBC 16.00 (H) 05/10/2024 HGB 8.4 (L) 05/10/2024 HCT 27.9 (L) 05/10/2024 PLATELET 210 05/10/2024 MCV 100.0 (H) 05/10/2024 Lab Results Component Value Date SODIUM 142 05/09/2024 POTASSIUM 4.0 05/09/2024 CHLORIDE 105 05/09/2024 CO2 27 05/09/2024 BUN 48 (H) 05/09/2024 CREATSERUM 2.50 (H) 05/09/2024 GLUCOSE 94 05/10/2024 Lab Results Component Value Date TRIG 152 (H) 05/07/2024 TRIG 113 05/05/2024 No results found for: HGBA1C Lab Results Component Value Date AMMONIA 31 05/04/2024 TSH 12.332 (H) 05/05/2024 AST 23 05/04/2024 ALT 11 05/04/2024 Imaging: MRI Brain w/wo 05/06 Multilevel degenerative spondylosis and degenerative disc disease results in moderate spinal canal stenosis at C5-6 and C6-7 with moderate bilateral neural foraminal stenosis. Visualization severely degraded by motion. Evaluation for spinal cord signal is significantly degraded by motion and Puga artifact. Cannot exclude myelopathic cord signal. No definite myelopathic cord signal is visualized in the cervical spine. Suspected Puga artifact artifact in the upper thoracic spine. MRI C spine w/wo 05/09 Questionable small focus of abnormal cortical/subcortical FLAIR signal in the medial right parietal lobe. This could be artifactual or potentially related to postictal changes. Diagnostics: cEEG 05/04-05/05 The findings were consistent with nonspecific moderate diffuse encephalopathy. EKG channel was abnormal. Clinical correlation advised Routine EEG /3 This is an abnormal inpatient routine vEEG that is characterized by severe degree of diffuse slowing consistent with nonspecific diffuse encephalopathy. The triphasics seen on this study are most likely associated with toxic or metabolic causes of encephalopathy rather than an ictal process. No seizures or epileptiform discharges were seen. Impression Mari Lopez is an 83 y.o. female with history of HTN, CKD4, hyperparathyroidism, hypothyroidism, BAYRON,gastric bypass (2003), and TADEO who presented as a transfer for AMS w/ concern for status epilepticus. On arrival, EEG with triphasics. LP completed with low concern for infectious or inflammatory process. Likely her presentation was from renal failure with severe, acute uremia resulting in seizures. Overall, her mental status is improving with improvement in kidney function and BUN. Recommendations: - Continue Vimpat 100 mg BID - Follow up in the Neurology clinic in 2-3 months - The patient was given instructions regarding safety in persons with seizures, specifically including no driving until seizure free for 6 months, no taking tub baths, no climbing heights or swimmingdue to risk of injury from seizures Thank you for the consultation. If you have any further questions, please contact Neurology Team A. Patient and plan seen with general neurology attending, Dr. Carl. Joel Calderon DO Neurology, PGY-4 Cosigned by Dot Carl MD at 05/10/2024 5:05 PM EST Associated attestation - Dot Carl MD - 05/10/2024 5:05 PM EST I have seen and examined the patient today on 05/10/24. I agree with the history, examination, and medical decision making as noted by the resident. I have personally reviewed all the data including history, medical records, lab/radiology/medical testing for today's encounter. Esteban Carl MD * Reese Michelle RN - 05/10/2024 11:29 AM EST VASCULAR ACCESS NOTE: Thank you for your referral to the Vascular Access Team. Consulted for placement of: [] PIV [x] Midline [] PICC [] Arms assessed for device placement, viable vessels identified: No device placed due to: [] Awaiting OPAT/final recommendations from ID [] Awaiting approval from nephrology in the presence of CKD 3 or higher [] Awaiting patient to be 24 hours fever free and/or 48 hours of negative blood cultures [] Awaiting TPN approval [x] Already has adequate access for therapies prescribed [] No viable veins (see description below) [] Patient refused [] Both arms found to have contraindications for line placement [] Continued malposition despite multiple attempts [] Accessed vein successfully, but PICC catheter would not advance [] Patient unable to give consent, no POA/unable to reach POA Additional note: PICC pager [phone] PIV pager [phone] * Joel Calderon DO - 05/09/2024 12:39 PM EST NEUROLOGY CONSULTATION NOTE - FOLLOW UP Reason for consultation: patient transferred per [facility] neurology for status. Consult for cE, status management. History of present illness: Mari Lopez is an 83 y.o. female with history of HTN, CKD4, hyperparathyroidism, hypothyroidism, BAYRON, gastric bypass (2003), and TADEO who presented as a transfer for AMS w/ concern for status epilepticus. Interval History: Fevered to 101.1 yesterday afternoon. Extubated yesterday. This morning she is sitting in bed with eyes open, but not speaking. Will nod and shake head yes or no correctly. Physical Examination Temp: [98.6 F (37 C)-101.3 F (38.5 C)] 98.8 F (37.1 C) Pulse (Heart Rate): [72-93] 76 Resp Rate: [14] 14 BP: (102-154)/(50-86) 124/56 O2 Sat (%): [93 %-100 %] 98 % Weight: [114.2 kg (251 lb 12.3 oz)] 114.2 kg (251 lb 12.3 oz) Body mass index is 47.57 kg/m . General: awake, lying in bed. Neurological Exam Cognition: Correctly answers yes/no questions with head nods/shaking. Language: Not speaking. Follows commands in all extremities. Cranial Nerves: EOMI. Pupils equal and reactive. Face symmetric with smile and closing eyes. Hearing grossly intact Tongue midline. Motor/Sensory: Will attempt to hold arms antigravity but unable to lift off the bed. Wiggling the legs equally butnot off the plane of the bed. Reflexes: 2+ throughout. Upgoing toes. Diagnostic Data Laboratory data: Lab Results Component Value Date WBC 16.92 (H) 05/09/2024 HGB 8.8 (L) 05/09/2024 HCT 28.1 (L) 05/09/2024 PLATELET 118 (L) 05/09/2024 MCV 97.6 05/09/2024 Lab Results Component Value Date SODIUM 140 05/09/2024 POTASSIUM 4.1 05/09/2024 CHLORIDE 104 05/09/2024 CO2 27 05/09/2024 BUN 35 (H) 05/09/2024 CREATSERUM 2.66 (H) 05/09/2024 GLUCOSE 139 (H) 05/09/2024 Lab Results Component Value Date TRIG 152 (H) 05/07/2024 TRIG 113 05/05/2024 No results found for: HGBA1C Lab Results Component Value Date AMMONIA 31 05/04/2024 TSH 12.332 (H) 05/05/2024 AST 23 05/04/2024 ALT 11 05/04/2024 Imaging: MRI Brain w/wo 05/06 Multilevel degenerative spondylosis and degenerative disc disease results in moderate spinal canal stenosis at C5-6 and C6-7 with moderate bilateral neural foraminal stenosis. Visualization severely degraded by motion. Evaluation for spinal cord signal is significantly degraded by motion and Pgu[place] artifact. Cannot exclude myelopathic cord signal. No definite myelopathic cord signal is visualized in the cervical spine. Suspected P[place] artifact artifact in the upper thoracic spine. MRI C spine w/wo 05/09 Questionable small focus of abnormal cortical/subcortical FLAIR signal in the medial right parietal lobe. This could be artifactual or potentially related to postictal changes. Diagnostics: cEEG 05/04-05/05 The findings were consistent with nonspecific moderate diffuse encephalopathy. EKG channel was abnormal. Clinical correlation advised Routine EEG 2/3 This is an abnormal inpatient routine vEEG that is characterized by severe degree of diffuse slowing consistent with nonspecific diffuse encephalopathy. The triphasics seen on this study are most likely associated with toxic or metabolic causes of encephalopathy rather than an ictal process. No seizures or epileptiform discharges were seen. Impression Mari Lopez is an 83 y.o. female with history of HTN, CKD4, hyperparathyroidism, hypothyroidism, BAYRON,gastric bypass (2003), and TADEO who presented as a transfer for AMS w/ concern for status epilepticus. On arrival, EEG with triphasics. LP completed with low concern for infectious or inflammatory process. Likely her presentation was from renal failure with severe, acute uremia. On exam, her mental status is improving with improvement in kidney function and BUN. She is awake and following commands, answering yes/no questions correctly but no spontaneous speech. Will continue to monitor her mental status. Recommendations: - Continue Vimpat 100 mg BID - Antibiotics per MICU team - Will continue to monitor mental status Thank you for the consultation. If you have any further questions, please contact Neurology Team A. Patient and plan seen with general neurology attending, Dr. Carl. Joel Calderon, DO Neurology, PGY-4 Cosigned by Dot Carl MD at 05/09/2024 5:50 PM EST Associated attestation - Dot Carl MD - 05/09/2024 5:50 PM EST I have seen and examined the patient today on 05/09/24. I agree with the history, examination, and medical decision making as noted by the resident. I have personally reviewed all the data including history, medical records, lab/radiology/medical testing for today's encounter. Follow up consult for encephalopathy and NSCE 83 yo female initially presented to the [facility] ED 05/01/24 with worsening AMS over 2 days, she was found to have severe metabolic derangements (pH 7.0, acute renal failure with uremia, hyperkalemia, acidosis), EEG there showed concern for non-convulsive status epilepticus LP non-infectious LTM here diffuse slowing, triphasics MRI brain with no acute findings On Vimpat for seizures. She is extubated, following simple commands, nods yes and no appropriately to questions, but no speech output Diagnosis and plan as outlined: Seizures, toxic metabolic encephalopathy, in the setting of Uremia, JOSE, Acidosis, etc Given improvement, will continue to monitor clinically, would expect her to continue to improve, can consider repeating imaging/EEG depending on clinical trajectory. Esteban Carl MD * Nelida Brock MD - 05/08/2024 11:00 AM EST NEUROLOGY CONSULTATION NOTE - FOLLOW UP Reason for consultation: patient transferred per [facility] neurology for status. Consult for cEEF, status management. History of present illness: Mari Lopez is an 83 y.o. female with history of HTN, CKD4, hyperparathyroidism, hypothyroidism, BAYRON, gastric bypass (2003), and TADEO who presented as a transfer for AMS w/ concern for status epilepticus. Only information available from EMS report was that the patient was unable to answer questions and no family was at bedside. Reportedly her neighbor called the squad as the patient started getting sick on Thursday and progressively worsened and was A&O x 1 when EMS arrived (usually A&O x 3). She initially presented to [facility] ED 05/01/2024 where she was non- responsive and found to be hypotensive requiring levophed. She had ABG which revealed pH of 7.02 with a CO2 of lessthan 5, bicarb of 4 with an anion gap of 18, white blood cell count of 17, hemoglobin of 9.7, potassium of 6.1, BUN of 158, and a creatinine of 7.93. Routine EEG was performed at OSH and showed continuous 1-2Hz GPDs with sharply contoured morphologymeeting criteria for IIC, attending neurologist Dr Yates's impression as below: This routine EEG may meets criteria for status epilepticus as it at times right hand movements appears to be time locked with above mentioned discharges. This study also showed diffuse cortical irritability and diffuse moderate to severe encephalopathy. Recommend watermelon harvesting supervisor monitoring for further characterization of concern for status epilepticus. Interval History HD yesterday Febrile Per MICU mental status precluding extubation this AM, but she later passed. Did not follow commandsfor us but per bedside RN, intermittently did follows commands Physical Examination Temp: [99.7 F (37.6 C)-101.3 F (38.5 C)] 99.9 F (37.7 C) Pulse (Heart Rate): [72-93] 83 BP: (125-180)/(60-86) 154/70 O2 Sat (%): [98 %-100 %] 99 % Body mass index is 47.4 kg/m . General: intubated Neurological Exam Cognition: opens eyes to voice Language: Not following verbal commands Cranial Nerves: Eyes are right and upward of midine. Does not look to left despite bein called. Pupils are 3mm, equal, round, and reactive to light, corneal reflexes are preserved. Gag and cough reflexes are preserved. Face appears grossly symmetric Motor/Sensory: Minimal to no witdrawal to noxious stimuli in all extremities Reflexes: Upgoing plantars Diagnostic Data Laboratory data: Lab Results Component Value Date WBC 15.34 (H) 05/08/2024 HGB 8.8 (L) 05/08/2024 HCT 28.9 (L) 05/08/2024 PLATELET 77 (L) 05/08/2024 MCV 99.0 (H) 05/08/2024 Lab Results Component Value Date SODIUM 140 05/08/2024 POTASSIUM 3.9 05/08/2024 CHLORIDE 106 05/08/2024 CO2 22 05/08/2024 BUN 28 (H) 05/08/2024 CREATSERUM 2.34 (H) 05/08/2024 GLUCOSE 109 (H) 05/08/2024 GLUCOSE 107 (H) 05/08/2024 Lab Results Component Value Date TRIG 152 (H) 05/07/2024 TRIG 113 05/05/2024 No results found for: HGBA1C Lab Results Component Value Date AMMONIA 31 05/04/2024 TSH 12.332 (H) 05/05/2024 AST 23 05/04/2024 ALT 11 05/04/2024 Imaging: XR CHEST 1 VIEW PORTABLE Final Result IMPRESSION: Patient is rotated to the left. Medial bibasilar opacities appear slightly improved or more likely atelectasis in the setting of improved lung volumes. Mild central bronchial wall cuffing can be seen with early edema or bronchitis. CHEST 1 VIEW PORTABLE Final Result IMPRESSION: No evidence of pneumomediastinum or subcutaneous gas on radiograph. ABDOMEN 1 VIEW PORTABLE Final Result IMPRESSION: Improved ileus without residual dilated small bowel. BRAIN WITH AND WITHOUT CONTRAST Final Result IMPRESSION: Motion artifact on multiple pulse sequences degrades evaluation. Questionable small focus of abnormal cortical/subcortical FLAIR signal in the medial right parietal lobe. This could be artifactual or potentially related to postictal changes. PLAIN FILM FOR NEURO EXAM Final Result IMPRESSION: No radiopaque foreign bodies to preclude MRI. Intrauterine contraceptive device in place. CHEST 1 VIEW PORTABLE Final Result IMPRESSION: 1. Right IJ CVC with tip terminating at the superior cavoatrial junction. No pneumothorax. 2. Interval retraction of the endotracheal tube which now terminates 3.6 cm above the level of the lisa, in good position. 3. Unchanged left basilar volume loss, otherwise lungs are clear. I personally viewed and interpreted these images and I have reviewed and approved this report. HEAD WITHOUT CONTRAST Final Result IMPRESSION: No acute cranial abnormality. ABDOMEN 1 VIEW PORTABLE Final Result IMPRESSION: Enteric tube in stomach. Similar visualized dilated small bowel loops. CHEST 1 VIEW PORTABLE Final Result IMPRESSION: 1. Endotracheal tube at the level the lisa, suggest adjustment. 2. Other support device as described above, in appropriate positions. 3. Left basilar volume loss. No pneumothorax. I, Marva Wallis MD have discussed the critical finding/s of endotracheal tube malposition with PRATIK ENNIS on 05/05/2024 9:59 AM. I personally viewed and interpreted these images and I have reviewed and approved this report. ABDOMEN 1 VIEW PORTABLE Final Result IMPRESSION: 1. Enteric tube projects over the stomach. 2. Mild gaseous distention of small bowel may reflect ileus. DUPLEX VENOUS EXTREMITY UPPER LEFT (Results Pending) MRI SPINE CERVICAL WITH AND WITHOUT CONTRAST (Results Pending) Impression Mari Lopez is an 83 y.o. female with history of HTN, CKD4, hyperparathyroidism, hypothyroidism, BAYRON,gastric bypass (2003), and TADEO who presented as a transfer for AMS w/ concern for status epilepticus. Neurologic exam notable for (+) cough, corneal, and gag, PERRL, upgoing toes, and minimal to no withdrawal in all 4 extremities; she is opening eyes more readily. HD has resulted in improvement in uremia. Mental status only slightly improved but she now not moving extremities much on our exam, with upgoing toes. Concern for cervical spine lesion given lack of withdrawal in all extremities with upgoing toes LP unimpressive MICU planning to repeat routine EEG. Previous cEEG x 24 hr negative for seizures. Recommendations: - continue Vimpat 100 mg BID - MRI c-spine with and without contrast (I have ordered) - abx per micu Thank you for the consultation. If you have any further questions, please contact Neurology Team A. Patient and plan seen with general neurology attending, Dr. Rogers. Nelida Brock MD Neurology, PGY-4 Cosigned by Gerardo Rogers MD at 05/09/2024 9:06 AM EST Associated attestation - Gerardo Rogers MD - 05/09/2024 9:06 AM EST I saw and independently examined the patient today on 05/08/24. I agree with the history, examination, and medical decision making as outlined by the resident. Patient briefly opens eyes to voice, doesnot attend or follow any commands. No spontaneous movement of extremities or withdrawal, bilateral babinski. I have independently reviewed the following tests and diagnostics: CSF glucose 56, protein 33, WBC 7, RBC 241, biofire panel negative Given bilateral babinski and no extremity movement recommend MRI cervical. Gerardo Rogers M.D. Attending Neurologist * Josefina Cary MD - 05/05/2024 11:25 AM ESTAssociated Order(s): IP CONSULT TO NEPHROLOGY Images from the original note were not included. NEPHROLOGY INPATIENT CONSULTATION NOTE Reason for Consultation: JOSE requiring DOOR TO DOOR SELLING AGENT Referring Provider: Pratik Young MD Hospital Day: 1 ASSESSMENT AND PLAN: 83F with PMH of CKD 4, neurogenic bladder, HTN, obesity s/p gastric bypass, TADEO, COPD, HFpEF, hypothyroidism, DVT/PE, chronic lymphedema who presented as a transfer from [facility] level of care after she presented with AMS and found to have status epilepticus. Hospital course c/b acute respiratory failure requiring intubation and JOSE requiring DOOR TO DOOR SELLING AGENT for which nephrology is consulted. IMPRESSION Oliguric JOSE on CKD 4 Azotemia Hypomagnesemia Hypocalcemia Macrocytic anemia AMS due to seizure disorder vs Septic shock (shock resolved) due to E coli UTI? Acute respiratory failure s/p intubation Urine sediment (05/05/24): Dissolving granular casts, CaOx monohydrate crystals, WBCs, RTECs, debris PLAN JOSE likely due to ischemic and septic ATN due to septic shock No urgent indication for DOOR TO DOOR SELLING AGENT given stable electrolytes and volume status. Will continue to monitor. Follow-up vitamin D levels Accurate Is/Os Avoid nephrotoxins as able Please direct all questions/concerns to Qgenda --> Internal Medicine --> Nephrology --> Jalen Consults Josefina Cary MD Division of Nephrology [facility] Pager [phone] SUBJECTIVE 73F with PMH of CKD 4, neurogenic bladder, HTN, obesity s/p gastric bypass, TADEO, COPD, HFpEF, hypothyroidism, DVT/PE, chronic lymphedema who [facility] after she presented with AMS and found to have status epilepticus. Hospital course c/b acute respiratory failure requiring intubation and JOSE requiring DOOR TO DOOR SELLING AGENT. Unclear what pt's baseline Cr is and how many sessions of DOOR TO DOOR SELLING AGENT she received at the OSH given lack ofrecords, although she had a session of HD on 05/02 and another on 05/04. Pt appears to be followingwith a health and fitness instructor but no records in the system. At the time of my evaluation, pt is intubated, sedated. Off pressors with minimal UOP. Due to concerns for meningitis, pt was started on Abx including acyclovir, ampicillin, ceftriaxone and vancomycin. Past Medical History: Past Medical History: Diagnosis Date (HFpEF) heart failure with preserved ejection fraction CKD (chronic kidney disease) stage 4, GFR 15-29 ml/min COPD (chronic obstructive pulmonary disease) HTN (hypertension) Lymphedema Obesity TADEO (obstructive sleep apnea) VTE (venous thromboembolism) Past Surgical History: No past surgical history on file. Family History: No family history on file. Allergies Allergen Reactions Peanut Oil Anaphylaxis Cefazolin Hives Ibuprofen Sulfa Antibiotics Social History Socioeconomic History Marital status: Single Spouse name: Not on file Number of children: Not on file Years of education: Not on file Highest education level: Not on file Occupational History Not on file Tobacco Use Smoking status: Unknown Smokeless tobacco: Not on file Substance and Sexual Activity Alcohol use: Not on file Drug use: Not on file Sexual activity: Not on file Other Topics Concern Not on file Social History Narrative Not on file Social Determinants of Health Financial Resource Strain: Patient Unable To Answer (05/05/2024) Overall Financial Resource Strain (CARDIA) Difficulty of Paying Living Expenses: Patient unable to answer Food Insecurity: Patient Unable To Answer (05/05/2024) Hunger Vital Sign Worried About Running Out of Food in the Last Year: Patient unable to answer Ran Out of Food in the Last Year: Patient unable to answer Transportation Needs: Patient Unable To Answer (05/05/2024) PRAPARE - Transportation Lack of Transportation (Medical): Patient unable to answer Lack of Transportation (Non-Medical): Patient unable to answer Physical Activity: Not on file Stress: Not on file Social Connections: Not on file Intimate Partner Violence: Patient Unable To Answer (05/05/2024) Humiliation, Afraid, Rape, and Kick questionnaire Fear of Current or Ex-Partner: Patient unable to answer Emotionally Abused: Patient unable to answer Physically Abused: Patient unable to answer Sexually Abused: Patient unable to answer Housing Stability: Patient Unable To Answer (05/05/2024) Housing Stability Vital Sign Unable to Pay for Housing in the Last Year: Patient unable to answer Number of Times Moved in the Last Year: Not on file Homeless in the Last Year: Patient unable to answer OBJECTIVE Vitals: BP 110/56 Pulse 72 Temp 98.2 F (36.8 C) (Bladder) Resp 11 Ht 1.549 m (5' 1) Wt 113.3 kg (249 lb 12.5 oz) SpO2 98% BMI 47.20 kg/m Smoking Status Unknown I/O last 3 completed shifts: In: 578.9 [I.V.:329.4; Irrigation:10; IV Piggyback:239.5] Out: 860 [Urine:850; Other:10] Scheduled Medications [START ON 05/06/2024] acyclovir 10 mg/kg (Adjusted) Intravenous Q24H ampicillin 2 g Intravenous Q6HNS bisacodyl 10 mg Rectal Daily cefTRIAXone 2 g Intravenous Q12HNS chlorhexidine 15 mL Mouth/Throat Q12H faMOTIdine 20 mg Oral Daily Or faMOTIdine 20 mg Per NG tube Daily Or famotidine (PF) 20 mg Intravenous Daily heparin 7,500 Units Subcutaneous Q8H 0800/1600/2200 lacosamide 100 mg Intravenous Q12HNS Levothyroxine 125 mcg Oral Before BKF metoprolol 2.5 mg Intravenous Once vancomycin 20 mg/kg (Adjusted) Intravenous Q72H Physical Examination: Constitutional: Critically ill, intubated Chest: On mech vent FiO2 21%, PEEP 6 Cardiovascular: RRR Extremities: Trace peripheral edema Dialysis Access: LIJ temp line Relevant Data: Lab Results Component Value Date SODIUM 136 05/05/2024 POTASSIUM 4.2 05/05/2024 CHLORIDE 105 05/05/2024 CO2 22 05/05/2024 BUN 51 (H) 05/05/2024 CREATSERUM 3.42 (H) 05/05/2024 GLUCOSE 88 05/05/2024 Lab Results Component Value Date WBC 16.19 (H) 05/05/2024 HGB 7.9 (L) 05/05/2024 HCT 24.3 (L) 05/05/2024 PLATELET 83 (L) 05/05/2024 MCV 98.4 (H) 05/05/2024 Lab Results Component Value Date SPGRVTYUR 1.009 05/04/2024 GLUCOSEURINE Negative 05/04/2024 KETONESURINE Negative 05/04/2024 BLOODURINE Large (A) 05/04/2024 NITRITESURIN Negative 05/04/2024 LEUKOCESTUR Large (A) 05/04/2024 WBCURINE > 20 (A) 05/04/2024 RBCURINE 11-25 (A) 05/04/2024 BACTERIAURIN PRESENT (A) 05/04/2024 Lab Results Component Value Date PROTEINURINE 30 mg/dL (A) 05/04/2024 Lab Results Component Value Date ALBUMIN 2.4 (L) 05/04/2024 ALT 11 05/04/2024 AST 23 05/04/2024 ALKPHOS 84 05/04/2024 BILITOTAL 0.5 05/04/2024 BILIDIRECT 0.1 05/04/2024 Lab Results Component Value Date CREATSERUM 3.42 (H) 05/05/2024 CREATSERUM 3.49 (H) 05/05/2024 CREATSERUM 3.28 (H) 05/04/2024 Lab Results Component Value Date PHOSPHORUS 3.8 05/05/2024 * Se Calderon MD - 05/05/2024 12:09 AM ESTAssociated Order(s): IP CONSULT TO NEUROLOGY NEUROLOGY CONSULTATION NOTE Reason for consultation: patient transferred per [facility] neurology for status. Consult for cEEF, status management. History of present illness: Mari Lopez is an 83 y.o. female with history of HTN, CKD4, hyperparathyroidism, hypothyroidism, BAYRON, gastric bypass (2003), and TADEO who presented as a transfer for AMS w/ concern for status epilepticus. Only information available from EMS report was that the patient was unable to answer questions and no family was at bedside. Reportedly her neighbor called the squad as the patient started getting sick on Thursday and progressively worsened and was A&O x 1 when EMS arrived (usually A&O x 3). She initially presented to [facility] ED 05/01/2024 where she was non- responsive and found to be hypotensive requiring levophed. She had ABG which revealed pH of 7.02 with a CO2 of lessthan 5, bicarb of 4 with an anion gap of 18, white blood cell count of 17, hemoglobin of 9.7, potassium of 6.1, BUN of 158, and a creatinine of 7.93. Routine EEG was performed at OSH and showed continuous 1-2Hz GPDs with sharply contoured morphologymeeting criteria for IIC, attending neurologist Dr Yates's impression as below: This routine EEG may meets criteria for status epilepticus as it at times right hand movements appears to be time locked with above mentioned discharges. This study also showed diffuse cortical irritability and diffuse moderate to severe encephalopathy. Recommend watermelon harvesting supervisor monitoring for further characterization of concern for status epilepticus. Medical History PAST MEDICAL HISTORY No past medical history on file. PAST SURGICAL HISTORY No past surgical history on file. FAMILY HISTORY No family history on file. SOCIAL HISTORY Social History Socioeconomic History Marital status: Single Spouse name: Not on file Number of children: Not on file Years of education: Not on file Highest education level: Not on file Occupational History Not on file Tobacco Use Smoking status: Not on file Smokeless tobacco: Not on file Substance and Sexual Activity Alcohol use: Not on file Drug use: Not on file Sexual activity: Not on file Other Topics Concern Not on file Social History Narrative Not on file Social Determinants of Health Financial Resource Strain: Not on file Food Insecurity: Not on file Transportation Needs: Not on file Physical Activity: Not on file Stress: Not on file Social Connections: Not on file Intimate Partner Violence: Not on file Housing Stability: Not on file ALLERGIES Allergies Allergen Reactions Peanut Oil Anaphylaxis Cefazolin Hives Ibuprofen Sulfa Antibiotics PRIOR TO ARRIVAL MEDICATIONS Medications Prior to Admission Medication Sig Dispense Refill Last Dose aspirin 81 MG Chew Tab chewable tablet Chew 1 tablet daily. Cholecalciferol 25 MCG (1000 UT) capsule Take by mouth. ferrous sulfate 324 (65 Fe) MG Tab DR tablet Take 1 tablet by mouth 3 times daily with meals. furOSEmide 20 MG tablet Take 1 tablet by mouth 2 times daily. Gabapentin 300 MG capsule Take 1 capsule by mouth 3 times daily. Levothyroxine 125 MCG tablet Take 1 tablet by mouth every morning before breakfast. Lisinopril 10 MG tablet Take 1 tablet by mouth daily. nitroGLYCERIN 0.[address] 1 tablet under tongue every 5 minutes as needed for Chest pain. max = 3 doses. If CP persists after 1st dose, call 911 omeprazole [address] capsule Take 1 capsule by mouth daily. Vibegron 75 MG tablet Take by mouth. Current Medications Current Facility-Administered Medications Medication Dose Route Frequency Provider Last Rate Last Admin chlorhexidine (PERIDEX) 0.12 % oral solution 15 mL 15 mL Mouth/Throat Q12H CHRISTINE Jacinto 15 mL at 05/04/242148 faMOTIdine (PEPCID) tablet 20 mg 20 mg Oral Daily Jennifer Cloud RPH Or faMOTIdine (PEPCID) tablet 20 mg 20 mg Per NG tube Daily Jennifer Cloud RPH 20 mg at 05/04/242148 Or famotidine (PF) (PEPCID) injection 20 mg 20 mg Intravenous Daily Jennifer Cloud RPH Heparin injection 7,500 Units 7,500 Units Subcutaneous Q8H 0800/1600/2200 Jennifer Cloud RPH7,500 Units at 05/04/24 230 Ipratropium-albuterol (DUONEB) 0.5-2.5 (3) MG/3ML nebulizer solution 3 mL 3 mL Nebulization Q6H PRNMattomega Ennis APRN-CJ levETIRAcetam (KEPPRA) injection 1,000 mg 1,000 mg Intravenous Q24H Paulino Whitehead MD [START ON 05/06/2024] levoFLOXacin (LEVAQUIN) tablet 500 mg 500 mg Per NG tube Q48H Jennifer Cloud, [facility] Levothyroxine (SYNTHROID) tablet 125 mcg 125 mcg Oral Before BKF Paulino Whitehead MD LORazepam (ATIVAN) injection 2 mg 2 mg Intravenous Q1H PRN Pratik Ennis APRN-CJ Norepinephrine (LEVOPHED) 4 mg in normal saline 250ml IV infusion premade 0-0.1 mcg/kg/min (Order-Specific) Intravenous Continuous Paulino Whitehead MD Stopped at 05/04/242138 Propofol (DIPRIVAN) 1000 MG/100ML premix infusion 0-50 mcg/kg/min (Order- Specific) Intravenous Continuous Paulino Whitehead MD 7 mL/hr at 05/04/24 2328 10 mcg/kg/min at 05/04/24 2328 Vancomycin HCl in NaCl (Vancocin) 1,500 mg in 0.9% NS 250 mL premix IVPB 20 mg/kg (Adjusted) Intravenous Q72H Jennifer Cloud [facility] Physical Examination Temp: [98.6 F (37 C)-99 F (37.2 C)] 98.6 F (37 C) Pulse (Heart Rate): [69-72] 69 Resp Rate: [20] 20 BP: (102-122)/(51-59) 122/55 O2 Sat (%): [99 %-100 %] 100 % Weight: [116.3 kg (256 lb 6.3 oz)] 116.3 kg (256 lb 6.3 oz) Body mass index is 48.45 kg/m . General: intubated Neurological Exam (propofol gtt paused) Cognition: Eyes are closed. Resists eye opening. Language: Not following verbal commands Cranial Nerves: Eyes are midline. Pupils are 3mm, equal, round, and reactive to light, corneal reflexes are preserved. Gag and cough reflexes are preserved. Face appears grossly symmetric Motor/Sensory: Withdraws to noxious stimuli in all extremities Reflexes: Patellar Achilles Babinski Right 0 0 mute Left 0 0 mute Diagnostic Data Laboratory data: Lab Results Component Value Date WBC 17.39 (H) 05/04/2024 HGB 7.9 (L) 05/04/2024 HCT 24.7 (L) 05/04/2024 PLATELET 96 (L) 05/04/2024 MCV 98.8 (H) 05/04/2024 Lab Results Component Value Date SODIUM 135 05/04/2024 POTASSIUM 4.5 05/04/2024 CHLORIDE 104 05/04/2024 CO2 22 05/04/2024 BUN 49 (H) 05/04/2024 CREATSERUM 3.28 (H) 05/04/2024 GLUCOSE 105 (H) 05/04/2024 No results found for: CHOLESTEROL, TRIG, HDL, LDLCALC No results found for: HGBA1C Lab Results Component Value Date AMMONIA 31 05/04/2024 AST 23 05/04/2024 ALT 11 05/04/2024 Imaging: XR ABDOMEN 1 VIEW PORTABLE Final Result IMPRESSION: Enteric tube in stomach. Similar visualized dilated small bowel loops. ABDOMEN 1 VIEW PORTABLE Final Result IMPRESSION: 1. Enteric tube projects over the stomach. 2. Mild gaseous distention of small bowel may reflect ileus. CHEST 1 VIEW PORTABLE (Results Pending) Impression Mari Lopez is an 83 y.o. female with history of HTN, CKD4, hyperparathyroidism, hypothyroidism, BAYRON,gastric bypass (2003), and TADEO who presented as a transfer for AMS w/ concern for status epilepticus. Neurologic exam notable for (+) cough, corneal, and gag, PERRL, diminished reflexes throughout, no clonus, toes were mute, she resisted eye opening and withdrew to noxious stimuli in all 4 extremities. 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 Recommendations: - check ECG; if MT interval < 200ms, would discontinue Keppra in favor of Vimpat 100mg BID givenher renal function - cEEG placed - [facility] now, MRI brain once EEG no longer needed and removed - nephrology consult to evaluate for DOOR TO DOOR SELLING AGENT Thank you for the consultation. If you have any further questions, please contact Neurology Team A. Patient and plan discussed with general neurology attending, Dr. Rogers. Se Calderon MD PGY-3 Department of Neurology Cosigned by Gerardo Rogers MD at 05/05/2024 12:06 PM EST Associated attestation - Gerardo Rogers MD - 05/05/2024 12:06 PM EST I saw and independently examined the patient today on 05/05/24. I agree with the history, examination, and medical decision making as outlined by the resident. 83 y.o. female with history of HTN, CKD4, hyperparathyroidism, hypothyroidism, BAYRON, gastric bypass (2003), and TADEO who presented as a transfer for AMS w/ concern for possible status epilepticus. Routine EEG was performed at OSH and showed continuous 1-2Hz GPDs with sharply contoured morphology meeting criteria for IIC. Loaded with Keppra, transferred to [facility]. On exam patient is intubated, not on sedation, does not arouse to voice, minimal grimace to nare stimulation, blinks to threat, pupils 3 mm, sluggishly reactive, oculocephalic and corneal and gag intact. No spontaneous motor movement. Reflexes 1+ UE and absent in LE. Tone reduced. No abnormal motormovements. Bilateral babinski. No withdrawal to nailbed pressure in any extremity. I have independently reviewed the following tests and diagnostics: UA turbide, large LE, >20 WBC, lactate 0.8, BUN 51, creat 3.4, CK 224, WBC 16.1, head CT no acute findings. New onset non convulsive/subtle convulsive status epilepticus, likely secondary to severe uremic encephalopathy (OSH BUN 150's and creat 7, patient started on DOOR TO DOOR SELLING AGENT). Of note also had been taking Flexeril 10 mg TID and Ambien 10 mg qday per pharmacist. For seizure prophylaxis will avoid Keppra due toCKD and start Vimpat maintenance. Will continue EEG for today. Gerardo Rogers M.D. Attending Neurologist documented in this encounterOS[facility] History and physical note* Paulino Whitehead MD - 05/04/2024 6:26 PM EST MICU HISTORY AND PHYSICAL IDENTIFYING INFORMATION PATIENT: Mari Lopez ADMIT DATE: 05/04/2024 TIME OF EVALUATION: 05/04/2024 10:33 PM HOSPITAL STAY: LOS: 0 days CHIEF COMPLAINT AMS HISTORY OF PRESENT ILLNESS Mari Lopez is a 83 y.o. female with a past medical history of HTN, CKD4, hyperparathyroidism, hypothyroidism, BAYRON,gastric bypass (2003), TADEO, who presents as a transfer for AMS w/ concern for status epilepticus. The patient initially presented to the [facility] ED 05/01/24 with AMS found to havesevere metabolic derangements (pH 7.0, acute renal failure with uremia, hyperkalemia, acidosis). She was intubated, initiated on broad spectrum antibiotics, and placed on vasopressors after inadequate response to 30 cc/kg IVF resuscitation. CTH on admission reportedly normal (reports not available or included in transfer paperwork, OSH radiology contacted to push images). An infectious workup wasnotable only for E. Coli UTI (blood cultures remained negative). The patient was noted to have possible seizure (right arm twitching) and spot EEG was obtained w/ findings concerning for possible status epilepticus. Per neurology recommendations, the patient received a keppra load and will now require cEEG. The patient is intubated and sedated, unable to provide collateral history or confirm past medical/surgical history. Per OSH records, EMS was contacted by the patient's neighbor after she was found confused (A&Ox1); she had been ill with unspecified symptoms that began on Thursday. She has an adult son who is her HCPOA and lives out of [facility]. He is traveling to [place]. PAST MEDICAL, SURGICAL, FAMILY, and SOCIAL HISTORY No past medical history on file. No past surgical history on file. No family history on file. Social History Socioeconomic History Marital status: Single MEDICATIONS SCHEDULED: chlorhexidine (PERIDEX) 0.12 % oral solution 15 mL, 15 mL, Q12H faMOTIdine (PEPCID) tablet 20 mg, 20 mg, Daily Or faMOTIdine (PEPCID) tablet 20 mg, 20 mg, Daily Or famotidine (PF) (PEPCID) injection 20 mg, 20 mg, Daily [START ON 05/05/2024] levETIRAcetam (KEPPRA) injection 1,000 mg, 1,000 mg, Q24H levoFLOXacin (LEVAQUIN) tablet 750 mg, 750 mg, Q24H [START ON 05/05/2024] Levothyroxine (SYNTHROID) tablet 125 mcg, 125 mcg, Before BKF [START ON 05/05/2024] Vancomycin (VANCOCIN) 2,250 mg in Sodium chloride 0.9%, with overfill 297.5 mL(total volume) IVPB, 20 mg/kg (Order-Specific), Q12HNS FLUIDS/DRIPS: norepinephrine 0.01 mcg/kg/min (05/04/242138) Propofol 10 mcg/kg/min (05/04/242138) PRNs: Ipratropium-albuterol, 3 mL, Q6H PRN LORazepam, 2 mg, Q1H PRN ALLERGIES: She is allergic to peanut oil, cefazolin, ibuprofen, and sulfa antibiotics. PRIOR TO HOSPITALIZATION MEDS: @MEDDISCHARGE@ REVIEW OF SYSTEMS Unable to obtain due to patient condition. OBJECTIVE FINDINGS Vital Signs (24hrs): Temp: [98.7 F (37.1 C)-99 F (37.2 C)] 99 F (37.2 C) Pulse (Heart Rate): [70-72] 72 Resp Rate: [20] 20 BP: (102-111)/(51-59) 111/59 O2 Sat (%): [99 %-100 %] 99 % Weight: [116.3 kg (256 lb 6.3 oz)] 116.3 kg (256 lb 6.3 oz) Hemodynamic/Invasive Device Data (24 hrs): Pulmonary/Cardiac Hemodynamics Pulse (Heart Rate): 72 BSA (Calculated - sq m): 2.1 m2 Neuro ICP/CPP Monitoring MAP (mmHg): 81 mmHg Neuro ICP/CPP Monitoring 2 MAP (mmHg): 81 mmHg Ventilation/Oxygen Therapy (24hrs): Oxygen Therapy O2 Sat (%): 99 % O2 Device: ventilator (mechanical ventilation) Oxygen Concentration (%): 40 Ventilator Settings and Monitoring (Adult/Peds) Ventilator Type: R860 Mode: A/C PRVC Set/Target Tidal Volume (mL): 450 Respiratory Rate - set (bpm): 20 Total Respiratory Rate (bpm): 20 PEEP (cm H2O): 6 Peak Inspiratory Pressure (cmH2O): 18 I:E Ratio: 1:3 Oxygen Delivery/Consumption Hemodynamics BSA (Calculated - sq m): 2.1 m2 Neuro-Cognitive Assessment/Scores Level Of Consciousness: obtunded Orientation: other (see comments) (bart) Lines/Drains/Airways/Wounds: Patient Lines/Drains/Airways Status Active Lines, Drains, Airways, & Wound Overview Name Placement date Placement time Site Days Tunneled Central Line - Double Lumen 05/04/242099 red blue internal jugular vein, left 05/04/242099 -- less than 1 Percutaneous Central Line - Triple Lumen 05/04/242099 blue white brown internal jugular vein, right 05/04/242099 -- less than 1 Indwelling Urethral Catheter 05/04/245 05/04/242214 -- less than 1 Naso/Oral Tube 05/04/242099 center mouth 05/04/242099 -- less than 1 Airway 05/04/242099 endotracheal tube 05/04/242099 -- less than 1 Fluid Management (24hrs): -Intake/Output last 3 shifts: No intake/output data recorded. -Intake/Output this shift: I/O this shift: In: 10 [Irrigation:10] Out: 110 [Urine:100; Other:10] Physical Exam: Gen: intubated and sedated HEENT: atraumatic, normocephalic, face symmetric, EOMI, sclerae anicteric, ETT in place Resp: mechanically ventilated breath sounds, bilateral breath sounds, CTAB CV: RRR, normal S1/S2, peripheral pulses intact GI: soft, non-tender, non-distended, NABS, obese Skin: warm , no rash Neuro: unable to assess fully- pupils equal and reactive, present cough/gag, withdrawal to pain in extremities x4 Psych: unable to assess DIAGNOSTIC RESULTS/PROCEDURES Labs-ABGs Labs-CBC WBC/Hgb/Hct/Plts: 17.39/7.9/24.7/96 (05/04 2107) Labs-Chem 7(PMC) Bun/Creat/Cl/CO2/Glucose: 49/3.28/104/22/105 (05/04 2107) Na/K+/Phos/Mg/Ca: 135/4.5/3.8/1.5/-- (05/04 2107) Labs-Coags Ptt/Pt/Inr: 32.8/14.2/1.1 (05/04 2107) Additional Labs Consults/Procedures: IP CONSULT TO NEUROLOGY IP CONSULT TO NEPHROLOGY Imaging/Radiological Studies: ASSESSMENT AND PLAN Mari Lopez is a 83 y.o. female with a past medical history of HTN, CKD4, hyperparathyroidism, hypothyroidism, BAYRON,gastric bypass (2003), TADEO, who presents as a transfer for AMS w/ concern for status epilepticus. Concern for Status Epilepticus: per [facility] neurology E-consultation. Reportedly CTH WNL upon admissionto OSH. - cEEG ordered and initiated - Discussed w/ neurology- given no evidence for ongoing seizure activity, will defer status protocol pending cEEG review and will continue Keppra maintenance dose - S/P 4500 mg Keppra load; continue maintenance dosing. Discussed w/ pharmacy and will continue 1,000 mg q24 given renal dysfunction - Neurology consulted, appreciate recommendations Undifferentiated Shock, Likely Septic, Improved: patient presented to OSH w/ hypotension requiring initiation of vasopressors. Broad infectious workup notable for E. Coli UTI (no CFU mentioned in transport records). - Continue antibiotics: the patient was only on Vancomycin prior to transport, but given only positive culture is E. Coli, will resume Levaquin (given abx allergies) and Vancomycin. Can likely stop vancomycin if MRSA screen negative. - Follow-up OSH blood cultures. NGTD 05/04 - Levophed, wean as able Acute Renal Failure c/b Uremia, Acidosis, Hyperkalemia: in the setting of underlying CKD. Initiatedon DOOR TO DOOR SELLING AGENT 05/02. - Nephrology consulted for continuation of DOOR TO DOOR SELLING AGENT. The patient received HD 05/04. - Renally dose medications, avoid nephrotoxic medications as able - Sedation w/ propofol. Target RASS -1-0. Acute Hypoxic Respiratory Failure: initially intubated for airway protection and severe metabolic derangements. CXR w/o focal consolidation but with mild findings consistent w/ volume overload. - ICU ventilator protocol - Vent ppx - The patient will likely benefit from gentle volume removal once tolerated by hemodynamics Acute on Chronic HFpEF: patient w/ prior diagnosis of HFpEF on home diuresis. Appears warm and wet. - Volume removal as tolerated though predominantly extravascular fluid by exam. - Renal function and hemodynamics preclude HFpEF GDMT Acute on Chronic Anemia: s/p 1U pRBCs on day of transfer. No evidence of bleeding. Possibly dilutional/ marrow suppression in setting of acute infection w/ underlying anemia of chronic disease. - Monitor w/ daily labs Chronic Medical Conditions: HTN: hold home antihypertensive medications Hypothyroidism: home synthroid TADEO: CPAP once extubated DVT ppx: subcutaneous heparin Fluids: N/A Diet: Nutrition Consult Code Status: FULL; the patient has an incomplete advanced directive in her transport paperwork. Follow-up w/ son once he arrives. Disposition: Pending clinical course. Lines: CVC/ HD line Tubes: OG, ETT, Do This plan was discussed with Dr. Gannon, the attending carbon electrodes supervisor for the MICU. Paulino Whitehead MD Cosigned by Pratik Young MD at 05/05/2024 8:08 AM EST documented in this encounterOSU [facility] Telephone encounter Note* Telephone Encounter - Olga Dillard RN - 05/02/2024 9:24 AM EST Friend (Alex) calls to let provider's office know that patient is currently at [facility] in the ICU for sepsis and kidney failure. Nothing further needed at this time. Closing encounter. Olga Dillard RN [facility]01-27-2025 Miscellaneous Notes* Telephone Encounter - Olga Dillard RN - 05/02/2024 9:24 AM EST Friend (Alex) calls to let provider's office know that patient is currently at [facility] in the ICU for sepsis and kidney failure. Nothing further needed at this time. Closing encounter. Olga Dillard RN documented in this encounterCleveland [facility]01-26-[facility] Evaluation note* Diagnosis Onset Date Resolution Status Admit Date Anemia in chronic illness chronic May 01, 2024 2:38pm Acute hyperkalemia resolved 2024 2:38pm Metabolic acidosis resolved 2024 2:38pm Septic shock resolved April 2:38pm Complicated urinary tract infection inactive May 01 2:38pm Obstructive sleep apnea inactive J anuary 2024 2:38pm Osteoporosis inactive April 2:38pm Acute renal failure deleted 2024 2:38pm Shock deleted May 01, 2024 2:38pm Chronic renal failure (CRF), stage 4 (severe) acute May 18, 2024 7:11pm Debility acute May 18, 2024 7:11pm Dysphagia acute May 18, 2024 7:11pm Generalized weakness acute 2024 7:11pm Heme + stool acute May 7:11pm Hyperphosphatemia acute 2024 7:11pm Left wrist pain acute May 18, 2024 7:11pm Acute on chronic anemia chronic F ebruary 2024 7:11pm Seizure disorder chronic May 18, 2024 7:11pm Acute hyperkalemia resolved 2024 7:11pm Acute on chronic back pain resolved May 18, 2024 7:11pm Acute renal failure superimp osed on stage 3b chronic kidney disease resolved May 18, 025 7:11pm Acute respiratory failure wi th hypoxemia resolved May 18, 2 025 7:11pm Bradycardia resolved May 7:11pm Encephalopathy resolved May 072024 7:11pm Fecal incontinence resolved 2024 7:11pm Metabolic acidosis resolved 2024 7:11pm Pyelonephritis due to Escherichia coli resolved May 18, 2024 7:11pm Septic shock resolved May 7:11pm Status epilepticus resolved 2024 7:11pm (HFpEF) heart failure with preserved ejection fraction inactive 2024 7:11pm Osteopenia inactive May 18, 2024 7:11pm Spinal osteophytosis inactive 2024 7:11pm Urinary incontinence inactive 2024 7:11pm Chronic kidney disease deleted [facility] 7:11[facility] Work Phone: [phone]) 394-745712-11-2024 NoteHNO ID: [id number] Author: MIRYAM OROZCO APRN.DIGITAL DATA ANALYST Service: ? Author Type: Nurse Practitioner Type: Progress Notes Filed: 03/16/2024 16:44 Note Text: This is a 83 year old female who presents today with: No chief complaint on file. HISTORY OF PRESENT ILLNESS: Mari Lopez is a 83 year old female. No chief complaint on file. 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 Which facility: [facility] Date of visit: 02/25/2024-03/02/2024 Diagnosis: S/P left shoulder Testing done: Thyroid, B12, and folate were normal. Iron saturation low at 6.6%. Reticulocyte count is significantly increased. Treatment given: IV iron circularized 100 mg, started on ferrous sulfate 325 mg daily with ascorbic acid 1000 mg at lunch. Hemoccult stool was negative. TSH was low 0.44 and T4 was elevated 1.68, endocrinology, Dr. Cowart recommend decreasing levothyroxine to half tab 1 day a week and continue 125 mcg daily all other days. Will follow-up with endocrinology for further evaluation as well as discuss elevated PTH at 196. Bone density was ordered. Vitamin D was 28.3 recommending being greater than 30. History of TADEO, quit CPAP when she had gastric bypass surgery. Overnight trending pulse ox abnormal with several desaturation events. Split sleep study ordered for 03/04/2024, will follow-up with [facility] pulmonary medicine to go over results. Discharge with PT at [facility]. Instructed to follow-up with surgeon, Dr. Carson. Placed on doxycycline due to arm pain to cover for possible cellulitis where IV was placed. Venous Doppler was negative for any thrombosis in the arm. Needs to complete bone density. Current symptoms: Had follow up with Surgeon, still wearing sling until March 21, still doing PT twice weekly, at [facility]. Doing well since surgery. Next following in April. Taking Iron, Vitamin C, and folate daily. Diagnosed with BAYRON. Completed sleep study, no results for my review at this time. Needs to schedule follow-up with pulmonology and consult with endocrinology. Refers that she was not aware that she needed to make changes to her levothyroxine dosing. Skin irritation started on abdomen due to depend rubbing. Has been putting a piece of cloth between skin fold to reduce irritation. PAST MEDICAL HISTORY: PAST MEDICAL HISTORY Diagnosis [...] CONDYLEANDPLATU MEDIALANDLAT COMPARTMENTS 1990 bilateral total knee s([place]) ARTHRP KNE CONDYLEANDPLATU MEDIALANDLAT COMPARTMENTS 10/24/2004 bilateral total knee revisions DELIVERY ONLY , low cervical CHOLECYSTECTOMY COLONOSCOPY FLX DX W/COLLJ SPEC WHEN PFRMD 11/17/2017 Colonoscopy DEBRIDEMENT SUBCUTANEOUS TISSUE 20 SQ CM/< 02/17/2007 LEFT LEG DEBRIDEMENT SUBCUTANEOUS TISSUE 20 SQ CM/< 02/20/2007 LEFT LEG DEBRIDEMENT SUBCUTANEOUS TISSUE 20 SQ CM/< 02/24/2007 LEFT LEG DEBRIDEMENT SUBCUTANEOUS TISSUE 20 SQ CM/< 02/26/2007 LEFT LEG DEBRIDEMENT SUBCUTANEOUS TISSUE 20 SQ CM/< 03/01/2007 LEFT LEG DEBRIDEMENT SUBCUTANEOUS TISSUE 20 SQ CM/< 03/03/2007 LEFT LEG ESOPHAGOGASTRODUODENOSCOPY TRANSORAL DIAGNOSTIC 11/17/2017 EGD GASTRIC BYPASS 07/2003 HEMORRHOIDECTOMY INTERNAL RUBBER BAND LIGATIONS HYSTEROSCOPY BX W/WO DANDC 01/07/2018 PAST SURGICAL HISTORY OF 04/10/2016 [place] and new knee cap put in right leg PAST SURGICAL HISTORY OF 04/25/2016 had to debri right leg wound with cellutitis infection SHOULDER SURGERY HX Left 02/22/[address] shoulder[address] Dr[address] Klaus Omalley with [facility] ALLERGIES Bactrim [Sulfamethoxazole-Trimethoprim], Ibuprofen, Kefzol [Cefazolin Sodium], Peanut, and Sulfa (Sulfonamide Antibiotics) MEDICATIONS Current Outpatient Medications Medication Sig zolpidem (AMBIEN) 10 mg Take 1 tablet by mouth at bedtime as needed for up to 90 days. furosemide (LASIX) 40 mg tablet Take 1 tablet by mouth once daily. levothyroxine (LEVOXYL) 125 mcg tablet Take 1 tablet by mouth once daily. Take on empty stomach. For thyroid. gabapentin (NEURONTIN) 300 mg capsule Take 1 capsule by mouth three times a day for 180 days. Take one pill 3 times per day Do not start before September 28, 2023. cyclobenzaprine (FLEXERIL) 10 mg tablet Take 1 tablet by mouth three times a day as needed for muscle spasm. polyethylene glycol 3350 (MIRALAX) 17 gram/dose powder Take by mouth once daily. Dissolve dose in 4 - 8 ounces of liq (more content not included)... [facility]12-02-2024 Telephone encounter Note* Telephone Encounter - Mulugeta Jennings APRN.CNP - 03/07/2024 10:53 AM EST Approved. [facility] website checked and validated. All prescriptions have been APPROPRIATELY filled. No suspiciousactivity was identified. 03/07/2024 by Mulugeta Jennings APRN.CNP The following approved medication requests have been transmitted electronically. Requested Prescriptions Signed Prescriptions Disp Refills zolpidem (AMBIEN) 10 mg 30 tablet 2 Sig: Take 1 tablet by mouth at bedtime as needed for up to 90 days. Authorizing Provider: MULUGETA JENNINGS APRN.CNP [facility]12-02-2024 Miscellaneous Notes* Telephone Encounter - Mulugeta Jennings APRN.CNP - 03/07/2024 10:53 AM EST Approved. [facility] website checked and validated. All prescriptions have been APPROPRIATELY filled. No suspiciousactivity was identified. 03/07/2024 by Mulugeta Jennings APRN.CNP The following approved medication requests have been transmitted electronically. Requested Prescriptions Signed Prescriptions Disp Refills zolpidem (AMBIEN) 10 mg 30 tablet 2 Sig: Take 1 tablet by mouth at bedtime as needed for up to 90 days. Authorizing Provider: MULUGETA JENNINGS APRN.CNP * Telephone Encounter - Piedad Wallis - 03/07/2024 10:17 AM EST Prescription Refill Information The patient has been identified by name and date of : Yes Caregiver verified no other encounters exist for this prescription request: Yes Caregiver confirmed with patient/requestor that no other refills are due, in the near future, with this provider at this time: Yes The last office visit in the department: 01-28-24 Does the patient have a future office visit with this provider/department: Yes Requested Prescriptions Pending Prescriptions Disp Refills zolpidem (AMBIEN) 10 mg 30 tablet 2 Sig: Take 1 tablet by mouth at bedtime as needed for up to 90 days. Piedad Cole March 07, 2024 10:17 AM documented in this encounterC[facility] Telephone encounter Note * Telephone Encounter - Piedad Wallis - 03/07/2024 10:17 AM EST Prescription Refill Information The patient has been identified by name and date of : Yes Caregiver verified no other encounters exist for this prescription request: Yes Caregiver confirmed with patient/requestor that no other refills are due, in the near future, with this provider at this time: Yes The last office visit in the department: 01-28-24 Does the patient have a future office visit with this provider/department: Yes Requested Prescriptions Pending Prescriptions Disp Refills zolpidem (AMBIEN) 10 mg 30 tablet 2 Sig: Take 1 tablet by mouth at bedtime as needed for up to 90 days. Piedad Cole March 07, 2024 10:17 AM [facility]11-27-2024 [facility]11-21-2024 [facility]11-08-2024 Telephone encounter Note* Telephone Encounter - Alex Lackey MA - 02/12/2024 10:08 AM EST OV note and form faxed. Alex Lackey MA [facility]11-08-2024 Miscellaneous Notes* Telephone Encounter - Alex Lackey MA - 02/12/2024 10:08 AM EST OV note and form faxed. Alex Lackey MA * Telephone Encounter - Lizy Capone MD - 02/12/2024 10:00 AM EST Form done; send with copy of 01/27 note Lizy Capone MD * Telephone Encounter - Alex Lackey MA - 02/12/2024 8:57 AM EST Type of letter/form/fax request - medical clearance request for surgery Form received from fax on 1 floor and placed on MD desk (Dr. Capone) for completion. Completed form needs to be faxed to [facility] at [phone]. Pt scheduled for Left reverse total shoulder arthroplasty on 02/22/[address] Klaus Omalley. Pt has PAT on 02/18/24 at [facility]. Pt last OV on 01/28/24 with Miryam Orozco for routine follow up. Route to CT when form completed for processing documented in this encounterC[facility]11-[facility] Telephone encounter Note * Telephone Encounter - Lizy Capone MD - 02/12/2024 10:00 AM EST Form done; send with copy of 01/27 note Lizy Capone MD [facility]11-08-2024 Telephone encounter Note* Telephone Encounter - Alex Lackey MA - 02/12/2024 8:57 AM EST Type of letter/form/fax request - medical clearance request for surgery Form received from fax on 1 floor and placed on MD desk (Dr. Capone) for completion. Completed form needs to be faxed to [facility] at [phone]. Pt scheduled for Left reverse total shoulder arthroplasty on 02/22/[address] Klaus Omalley. Pt has PAT on 02/18/24 at [facility]. Pt last OV on 01/28/24 with Miryam Orozco for routine follow up. Route to CT when form completed for processing [facility]10-24-2024 Instructions* Patient Instructions* Miryam Orozco APRN.CNP - 01/28/2024 9:20 AM EDT Get repeat fasting labs in 6 months prior to next visit Continue to take all medication as prescribed Keep scheduled appointments with specialists. Flu and covid given today Follow up in 6 months or sooner as needed. documented in this encounterCleveland [facility]10-24-2024 History of Present illness Narrative* Miryam Orozco APRN.CNP - 01/28/2024 9:00 AM EDT This is a 83 year old female who presents today with: Patient presents with: 6 Month Exam HISTORY OF PRESENT ILLNESS: Mari Lopez is a 83 year old female. Patient presents with: 6 Month Exam 3 month follow up Has been doing PT to help with balance, refers that it has been going well. Was able to stop using cane. Refes that she may need knee replacements in the future. Has recently had some lower BP readings at home. Refers that nephrology noted lower blood pressure reading in their office. Last office visit stopped Amlodipine. Blood pressure 120/60's at home. Dizziness has resolved. History of incontinence, Following with Dr. Hernandez (urology). Taking Gemtesa 75 mg daily, which has been helpful. Cystoscopy normal. Has bathroom schedule to empty bladder. Chronic back pain: Following with pain management, Dr. Delgado, Had SPR device placement/removal. Feelng well. Knee Pain: Using Voltaren gel as needed. Left Shoulder: Has been having ongoing pain for about 5-6 months. Pain is constant. Will be having left shoulder surgery in February with [facility], Dr. Omalley. LLE: Lasix 40 mg for Lasix daily. Well controlled with medication. CKD4: Following with Nephrology, Dr. Gilmore. Every 6 months. Refers that she just had labs, which ere stable. HTN: Taking Lisinopril/hctz 10/12.5 mg, Norvasc 5 mg and Toprol XL 50 mg daily. Hypothyroid: Taking levothyroxine 125 mcg daily. Cardiology: Following with Dr. Jackson. Has been working out 3 times weekly and watching diet. Sleep: Taking Ambien 10 mg at bedtime. Vaccines: Would like Flu and Covid vaccines. PAST MEDICAL HISTORY: PAST MEDICAL HISTORY Diagnosis [...] CONDYLE&PLATU MEDIAL&LAT COMPARTMENTS 1990 bilateral total knee s([place]) ARTHRP KNE CONDYLE&PLATU MEDIAL&LAT COMPARTMENTS 10/24/04 bilateral total knee revisions DELIVERY ONLY , low cervical CHOLECYSTECTOMY COLONOSCOPY FLX DX W/COLLJ SPEC WHEN PFRMD 11/17/2017 Colonoscopy DEBRIDEMENT SUBCUTANEOUS TISSUE 20 SQ CM/< 02/17/07 LEFT LEG DEBRIDEMENT SUBCUTANEOUS TISSUE 20 SQ CM/< [id number] LEFT LEG DEBRIDEMENT SUBCUTANEOUS TISSUE 20 SQ CM/< [id number] LEFT LEG DEBRIDEMENT SUBCUTANEOUS TISSUE 20 SQ CM/< [id number] LEFT LEG DEBRIDEMENT SUBCUTANEOUS TISSUE 20 SQ CM/< [id number] LEFT LEG DEBRIDEMENT SUBCUTANEOUS TISSUE 20 SQ CM/< 03/03/07 LEFT LEG ESOPHAGOGASTRODUODENOSCOPY TRANSORAL DIAGNOSTIC 11/17/2017 EGD GASTRIC BYPASS 07/08 HEMORRHOIDECTOMY INTERNAL RUBBER BAND LIGATIONS HYSTEROSCOPY BX W/WO D&C 01/07/2018 PAST SURGICAL HISTORY OF 04/10/2016 [place] and new knee cap put in right leg PAST SURGICAL HISTORY OF 04/25/2016 had to debri right leg wound with cellutitis infection ALLERGIES Bactrim [Sulfamethoxazole-Trimethoprim], Ibuprofen, Kefzol [Cefazolin Sodium], Peanut, and Sulfa (Sulfonamide Antibiotics) MEDICATIONS Current Outpatient Medications Medication Sig zolpidem (AMBIEN) 10 mg Take 1 tablet by mouth at bedtime as needed for up to 90 days. levothyroxine (LEVOXYL) 125 mcg tablet Take 1 tablet by mouth once daily. Take on empty stomach. For thyroid. gabapentin (NEURONTIN) 300 mg capsule Take 1 capsule by mouth three times a day for 180 days. Take one pill 3 times per day Do not start before September 28, 2023. cyclobenzaprine (FLEXERIL) 10 mg tablet Take 1 tablet by mouth three times a day as needed for muscle spasm. polyethylene glycol 3350 (MIRALAX) 17 gram/dose powder Take by mouth once daily. Dissolve dose in 4- 8 ounces of liquid and take as directed. polyethylene glycol 3350 (MIRALAX) 17 gram/dose powder Take once daily lisinopril-hydroCHLOROthiazide (ZESTORETIC) 10-12.5 mg per tablet Take 1 tablet by mouth once daily. furosemide (LASIX) 40 mg tablet take 1 tablet by mouth every day omeprazole (PRILOSEC) 20 mg capsule Take 1 capsule by mouth once daily. GEMTESA 75 mg tablet Take 1 tablet by mouth every afternoon. aspirin, enteric coated (ASPIRIN, ENTERIC COATED) 81 mg EC tablet Take 81 mg by mouth once daily. amLODIPine (NORVASC) 5 mg tablet Take by mouth. tolterodine ER (DETROL LA) 4 mg 24 hr capsule TAKE 1 CAPSULE BY MOUTH ONCE DAILY acetaminophen (TYLENOL) 500 mg tablet Take 1,000 mg by mouth twice daily. Diaper,Brief, Adult,Disposable (DEPEND UNDERWEAR FOR WOMEN XL) Use 5/day as needed for urinary incontinence metoprolol succinate ER (TOPROL XL) 50 mg 24 hr tablet Take by mouth. Ausncwqdlvn-Qdjdxjuto-Cqi C-Mn (GLUCOSAMINE CHONDROITIN MAXSTR) 500-400 mg cap Take 1 capsule by mouth three times daily. COMPOUNDED PRESCRIPTION Stair lift DAILY-LUISITO tablet TAKE 1 TABLET BY MOUTH ONCE DAILY. lphwpdo-tvcuquttt-fowzvey D3 (CALCIUM 500+D) 500 mg(1,250mg) -200 unit [...] Social History Tobacco Use Smoking status: Former Current packs/day: 0.00 Average packs/day: 0.3 packs/day for 1 year (0.3 ttl pk-yrs) Types: Cigarettes Start date: 04/06/1952 Quit date: 04/06/1953 Years since quittin.8 Smokeless tobacco: Never Vaping Use Vaping status: Never Used Substance Use Topics Alcohol use: Yes Comment: [...] depression, anxiety, or suicidal ideation. EXAM: BP 122/60 Pulse 77 Resp 16 Wt 103.9 kg (229 lb) SpO2 96% BMI 41.88 kg/m PHYSICAL EXAM: General Appearance: Well appearing, alert, in no acute distress, well-hydrated, well nourished. Skin: Skin color, texture, turgor normal, no suspicious rashes or lesions. Head: Normocephalic, no masses, lesions, tenderness or abnormalities. Eyes: Anicteric sclera. Extraocular movements are intact. Lungs: Lungs clear to auscultation. No wheezing, rhonchi, rales. Heart: RRR without murmur, gallop, or rubs. No ectopy. Extremities: No deformities, edema, skin discoloration, clubbing or cyanosis. Good capillary refill. Peripheral Pulses: Normal, Capillary refill <2secs, strong peripheral pulses, Pulses palpable. Neurologic: Gait normal. Sensation grossly intact. ASSESSMENT/PLAN: 1. BENIGN HYPERTENSION(aka HTN) - ICD9: 401.1, ICD10: I10 (primary diagnosis) - Controlled - Continue current medications - Recommend home blood pressure monitoring, to bring results to next visit - Encouraged sodium restriction, DASH or Mediterranean diet - Recommend regular aerobic exercise - COMPREHENSIVE METABOLIC PANEL 2. Hyperlipidemia LDL goal <100 - ICD9: 272.4, ICD10: E78.5 - Controlled - Continue current medications - Counseled on healthy diet and regular exercise - Discussed need for and benefit of weight loss. BMI 41.88 kg/(m^2) - LIPID PANEL BASIC 3. Leg swelling - ICD9: 729.81, ICD10: M79.89 - Stable, refill provided. - FUROSEMIDE 40 MG TABLET 4. Balance problem - ICD9: 781.99, ICD10: R26.89 - Stable, continue with PT. 5. Female stress incontinence - ICD9: 625.6, ICD10: N39.3 - Stable, continue to take current medication. - Keep scheduled appointments with urologist. 6. Hypothyroidism, acquired - ICD9: 244.9, ICD10: E03.9 - Instructed patient on importance of taking on an empty stomach either first thing in the morning or at bedtime. - Get repeat labs in 6 months. - THYROID STIMULATING HORMONE - T4 FREE/FREE THYROXINE 7. Insomnia, unspecified type - ICD9: 780.52, ICD10: G47.00 - Stable, continue to take current medication. 8. CKD (chronic kidney disease) stage 4, GFR 15-29 ml/min (HCC) - ICD9: 585.4, ICD10: N18.4 - eGFR: 30 Worsening - Counseled on avoiding NSAIDs, adequate hydration - Counseled on low sodium diet - Follow up with kidney medicine 9. Chronic shoulder pain, unspecified laterality - ICD9: 719.41, 338.29, ICD10: M25.519, G89.29 - Keep surgery date 10. Chronic right-sided low back pain without sciatica - ICD9: 724.2, 338.29, ICD10: M54.50, G89.29 - Stable, keep scheduled appointments with pain management. 11. Chronic knee pain, unspecified laterality - ICD9: 719.46, 338.29, ICD10: M25.569, G89.29 - Stable, continue with Voltaren gel as needed. 12. Encounter for immunization - ICD9: V03.89, ICD10: Z23 - VIS provided. - INFLUENZA VACCINE, PRSV FREE, AGE 65+ YR, HIGH DOSE, TRIVALENT (FLUZONE HIGH-DOSE) - [employer] COVID-19 VACCINE AGE 12+ YR (COMIRNATY) Follow-up in 6 months with labs Discussed treatment plan and patient voices understanding. Patient's questions answered appropriately. Medications and potential side effects were discussed and patient voices understanding. Miryam Orozco APRN.CJ This note was partially generated using [employer] recognition system. Note was reviewed for accuracy. There may be minor misspellings or grammar miscues with [employer] voice recognition. documented in this encounterCleveland [facility]24 NoteHNO ID: [id number] Author: MIRYAM OROZCO APRN.DIGITAL DATA ANALYST Service: ? Author Type: Nurse Practitioner Type: Progress Notes Filed: 01/28/2024 14:38 Note Text: This is a 83 year old female who presents today with: Patient presents with: 6 Month Exam HISTORY OF PRESENT ILLNESS: Mari Lopez is a 83 year old female. Patient presents with: 6 Month Exam 3 month follow up Has been doing PT to help with balance, refers that it has been going well. Was able to stop using cane. Refes that she may need knee replacements in the future. Has recently had some lower BP readings at home. Refers that nephrology noted lower blood pressure reading in their office. Last office visit stopped Amlodipine. Blood pressure 120/60's at home. Dizziness has resolved. History of incontinence, Following with Dr. Hernandez (urology). Taking Gemtesa 75 mg daily, which has been helpful. Cystoscopy normal. Has bathroom schedule to empty bladder. Chronic back pain: Following with pain management, Dr. Delgado, Had SPR device placement/removal. Feelng well. Knee Pain: Using Voltaren gel as needed. Left Shoulder: Has been having ongoing pain for about 5-6 months. Pain is constant. Will be having left shoulder surgery in February with [facility], Dr. Omalley. LLE: Lasix 40 mg for Lasix daily. Well controlled with medication. CKD4: Following with Nephrology, Dr. Gilmore. Every 6 months. Refers that she just had labs, which ere stable. HTN: Taking Lisinopril/hctz 10/12.5 mg, Norvasc 5 mg and Toprol XL 50 mg daily. Hypothyroid: Taking levothyroxine 125 mcg daily. Cardiology: Following with Dr. Jackson. Has been working out 3 times weekly and watching diet. Sleep: Taking Ambien 10 mg at bedtime. Vaccines: Would like Flu and Covid vaccines. PAST MEDICAL HISTORY: PAST MEDICAL HISTORY Diagnosis [...] CONDYLEANDPLATU MEDIALANDLAT COMPARTMENTS 1990 bilateral total knee s([place]) ARTHRP KNE CONDYLEANDPLATU MEDIALANDLAT COMPARTMENTS 10/24/04 bilateral total knee revisions DELIVERY ONLY , low cervical CHOLECYSTECTOMY COLONOSCOPY FLX DX W/COLLJ SPEC WHEN PFRMD 11/17/2017 Colonoscopy DEBRIDEMENT SUBCUTANEOUS TISSUE 20 SQ CM/< 02/17/07 LEFT LEG DEBRIDEMENT SUBCUTANEOUS TISSUE 20 SQ CM/< [id number] LEFT LEG DEBRIDEMENT SUBCUTANEOUS TISSUE 20 SQ CM/< [id number] LEFT LEG DEBRIDEMENT SUBCUTANEOUS TISSUE 20 SQ CM/< [id number] LEFT LEG DEBRIDEMENT SUBCUTANEOUS TISSUE 20 SQ CM/< [id number] LEFT LEG DEBRIDEMENT SUBCUTANEOUS TISSUE 20 SQ CM/< 03/03/07 LEFT LEG ESOPHAGOGASTRODUODENOSCOPY TRANSORAL DIAGNOSTIC 11/17/2017 EGD GASTRIC BYPASS 07/08 HEMORRHOIDECTOMY INTERNAL RUBBER BAND LIGATIONS HYSTEROSCOPY BX W/WO DANDC 01/07/2018 PAST SURGICAL HISTORY OF 04/10/2016 [place] and new knee cap put in right leg PAST SURGICAL HISTORY OF 04/25/2016 had to debri right leg wound with cellutitis infection ALLERGIES Bactrim [Sulfamethoxazole-Trimethoprim], Ibuprofen, Kefzol [Cefazolin Sodium], Peanut, and Sulfa (Sulfonamide Antibiotics) MEDICATIONS Current Outpatient Medications Medication Sig zolpidem (AMBIEN) 10 mg Take 1 tablet by mouth at bedtime as needed for up to 90 days. levothyroxine (LEVOXYL) 125 mcg tablet Take 1 tablet by mouth once daily. Take on empty stomach. For thyroid. gabapentin (NEURONTIN) 300 mg capsule Take 1 capsule by mouth three times a day for 180 days. Take one pill 3 times per day Do not start before September 28, 2023. cyclobenzaprine (FLEXERIL) 10 mg tablet Take 1 tablet by mouth three times a day as needed for muscle spasm. polyethylene glycol 3350 (MIRALAX) 17 gram/dose powder Take by mouth once daily. Dissolve dose in 4 - 8 ounces of liquid and take as directed. polyethylene glycol 3350 (MIRALAX) 17 gram/dose powder Take once daily lisinopril-hydroCHLOROthiazide (ZESTORETIC) 10-12.5 mg per tablet Take 1 tablet by mouth once daily. furosemide (LASIX) 40 mg tablet take 1 tablet by mouth every day omeprazole (PRILOSEC) 20 mg capsule Take 1 capsule by mouth once daily. GEMTESA 75 mg tablet Take 1 tablet by mouth every afternoon. aspirin, enteric coated (ASPIRIN, ENTERIC COATED) 81 mg EC tablet Take 81 mg by mouth once daily. amLODIPine (NORVASC) 5 mg tablet Take by mouth. tolterodine ER (DETROL LA) 4 mg 24 hr capsule TAKE 1 CAPSULE BY MOUTH ONCE DAILY acetaminophen (TYLENOL) 500 mg tablet Take 1,000 mg by mouth twice daily. Diaper,Brief, Adult,Disposable (DEPEND UNDERWEAR FOR WOMEN XL (more content not included)...[facility]09-30-2024 Telephone encounter Note* Telephone Encounter - Michael Diop - 01/04/2024 8:38 AM EDT Lvm for patient to call back and schedule an appointment with Dr. Jackson. [facility]09-30-[facility]24 Miscellaneous Notes* Telephone Encounter - Michael Diop - 01/04/2024 8:38 AM EDT Lvm for patient to call back and schedule an appointment with Dr. Jackson. * Telephone Encounter - Michael Diop - 12/31/2023 8:14 AM EDT Lvm for patient to call back and schedule an appointment with Dr. Jackson. * Telephone Encounter - Michael Diop - 12/29/2023 10:40 AM EDT Lvm for patient to call back and schedule an appointment with Dr. Jackson for knee pain. * Telephone Encounter - Weston Humphrey - 12/29/2023 8:53 AM EDT Patient is being referred to Dr. Jackson by Dr. Lokesh Mc for left knee pain. Please reach out to patient and assist with scheduling a consultation. 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 Weston [place] Branch documented in this encounterC[facility]09-[facility] Telephone encounter Note * Telephone Encounter - Michael Diop - 12/31/2023 8:14 AM EDT Lvm for patient to call back and schedule an appointment with Dr. Jackson. [facility] Telephone encounter Note* Telephone Encounter - Michael Diop - 12/29/2023 10:40 AM EDT Lvm for patient to call back and schedule an appointment with Dr. Jackson for knee pain. [facility] Telephone encounter Note* Telephone Encounter - Mere Regino BranchWeston - 12/29/2023 8:53 AM EDT Patient is being referred to Dr. Jackson by Dr. Lokesh Mc for left knee pain. Please reach out to patient and assist with scheduling a consultation. 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 Weston Severino Regino Branch [facility]09-12-2024 Telephone encounter Note* Telephone Encounter - Analia Gracia RN - 12/17/2023 3:43 PM EDT Pt called and is notified of providers message. Pt voices understanding. Analia Gracia RN [facility]09-12-2024 Miscellaneous Notes* Telephone Encounter - Analia Gracia RN - 12/17/2023 3:43 PM EDT Pt called and is notified of providers message. Pt voices understanding. Analia Gracia RN * Telephone Encounter - Miryam Orozco APRN.CNP - 12/17/2023 3:31 PM EDT Lab orders have been placed. Miryam Orozco APRN.CJ * Telephone Encounter - Lilo Maurer LPN - 12/17/2023 3:00 PM EDT Patient returned call, given below results/recommendations, verbalized understanding. Patient wanting to stay on same dose of Synthroid and recheck labs in 6-8 weeks. Lilo Maurer LPN * Telephone Encounter - Minna Blue LPN - 12/17/2023 8:46 AM EDT TC to pt. LM to call office, ask for triage nurse to get results. Minna Blue LPN * Telephone Encounter - Miryam Orozco APRN.CNP - 12/16/2023 7:25 PM EDT Can you please call the patient and let her know that I reviewed her lab results. TSH was mildly elevated. If she is not having any symptoms we can continue with current Synthroid dosing and recheck labs in 6 to 8 weeks. Triglycerides were elevated. Mild decreased kidney function noted. I would recommend that she continue to watch processed foods in the diet, increase lean protein, vegetables, get some form exercise. Keep scheduled appointments with health and fitness instructor. Please let me know what she prefers regarding her thyroid. Thank you Miryam Orozco APRN.CJ documented in this encounterC[facility]09-12-2024 Telephone encounter Note * Telephone Encounter - Miryam Orozco APRN.CNP - 12/17/2023 3:31 PM EDT Lab orders have been placed. Miryam Orozco APRN.CJ [facility]09-12-2024 Telephone encounter Note* Telephone Encounter - Lilo Maurer LPN - 12/17/2023 3:00 PM EDT Patient returned call, given below results/recommendations, verbalized understanding. Patient wanting to stay on same dose of Synthroid and recheck labs in 6-8 weeks. Lilo Maurer LPN [facility]09-12-2024 NoteHNO ID: [id number] Author: AMADA VELASCO LPN Service: ? Author Type: LICENSED NURSE Type: Progress Notes Filed: 12/17/2023 09:15 Note Text: Review of Systems Constitutional: Positive for chills. Negative for activity change, fever and unexpected weight change. Gastrointestinal: Negative for bowel retention or incontinence Genitourinary: Negative for difficulty urinating. Negative for bladder retention or incontinence Musculoskeletal: Positive for arthralgias, gait problem and joint swelling. Negative for back pain, myalgias, neck pain and neck stiffness. Neurological: Positive for numbness. Negative for weakness and headaches. Psychiatric/Behavioral: Positive for sleep disturbance. Negative for dysphoric mood and suicidal ideas. The patient is not nervous/anxious.[facility]09-12-2024 History of Present illness Narrative* Amada Velasco LPN - 12/17/2023 8:50 AM EDT Review of Systems Constitutional: Positive for chills. Negative for activity change, fever and unexpected weight change. Gastrointestinal: Negative for bowel retention or incontinence Genitourinary: Negative for difficulty urinating. Negative for bladder retention or incontinence Musculoskeletal: Positive for arthralgias, gait problem and joint swelling. Negative for back pain,myalgias, neck pain and neck stiffness. Neurological: Positive for numbness. Negative for weakness and headaches. Psychiatric/Behavioral: Positive for sleep disturbance. Negative for dysphoric mood and suicidal ideas. The patient is not nervous/anxious. * Roque Delgado MD - 12/15/2023 2:06 PM EDT Images from the original note were not included. [facility] [place] [facility] Today's Date: 12/17/2023 Name: Mari Lopez : 1940 Purpose: Follow-up Patient Evaluation - [...] back pain with sciatica, Pertinent Past Surgeries: [place] and new knee cap in right leg (2016), Bilat total knee revisions (2004), Bilat TKA (1990), 08/14/2023 DH - Pain score 3/10. Patient underwent the following injection with Dr. Delgado on 07/15/23: Radiofrequency Ablation (ThermalRFA) - Suprascapular Nerve under fluoroscopic guidance LEFT-SIDED Patient reports 80% relief from the injection. Symptom relief lasted to date. During this time the patient was able to tolerate and participate in their ADL's with less pain and difficulty. Patient denies any adverse side effects such as nausea, vomiting, hives, fever, injection site redness/induration, headache, or new radicular symptoms. She is wondering about her right sided shoulder pain now. She would like to have the reagan done on the right side now. She has tried physical therapy and medications for this but she is still having significant shoulder pain on her right side. Plan at last in-person visit: 04/16/2023 (Roque Delgado MD) Medications: Requested Prescriptions Signed Prescriptions Disp Refills cyclobenzaprine (FLEXERIL) 10 mg tablet 90 tablet 1 Sig: Take 1 tablet by mouth three times a day as needed for muscle spasm. Gabapentin 300mg TID Flexeril 10mg TID PRN Interventional Procedures: Suprascapular Nerve Block with steroid infiltration under ultrasound guidance LEFT-SIDED Follow-up: 3 months for medications Depending on response to the above plan, consider: Left Suprascapular RFA; SPRINT PNS Left Suprascapular Nerve Interv al History: Overall pain and functional disability since last visit: Better New Complaints since last visit: No Her right shoulder did not improve with RFA, left shoulder still doing well. She would like to see a surgeon to discuss right shoulder surgical options. She reports 100% relief of her low back and thoracic pain since the SPRINT PNS treatment. Other than a little stiffness in the morning, she has no low back pain. She is exercising regularly. She has lost nearly 80 pounds since July,. Current Pain Medications: Neuropathics: Gabapentin 300mg TID NSAIDS: Muscle Relaxants: Flexeril 10mg TID prn - reports she still has 5 refills left Topicals: Other Prescription or OTC Pain Medications: Ambien 10mg Opioids (when applicable): Tolerating Medication: Yes Medications helping improve ADL's and Self-care: Yes Anti-depressants or Mood-Stabilizers: None Anti-Coagulants: None 09/19/2021 10/02/2022 01/15/2023 12/17/2023 AG SPINE COMBINATION Questionnaire GREEN[place]IGHT Completed Date 09/19/2021 Completed Date 01/15/2023 12/17/2023 Comments Monitored Medication Informed Consent ALEC - Gabapentin Questionnaire Opiod Risk Tool Opiod Risk Tool Opiod Risk Tool Completed Date 09/19/2021 10/02/2022 12/17/2023 Comments 7 low - 0 Completed Date 12/17/2023 Comments ALEC - Gabapentin Opioid Risk Tool Opiod Risk Tool Date Completed 12/17/2023 Comments low - 0 (All drug screens are appropriate unless indicated otherwise) Therapies Attended (Current or Most Recent): No Current Therapies Notable Events During Course of Treatment: 09/19/2021 - Initial HPI (Obtained by Avis Marrufo APRN.DIGITAL DATA ANALYST ). From 03/2022 - She previously inquired [...] Treatment History: PAIN PROCEDURES: DATE PROCEDURE IMPROVEMENT 11/16/2023 RFA Rt. Suprascapular Nerve No relief 07/15/2023 RFA Lt. Suprascapular Nerve 80% (12/17/2023 ) 02/16/2023 GH Joint. Bilateral 95% right x 4 months, 0% left 08/13/2022 SPRINT PNS Lumbar (Right) Nearly 100% (12/17/2023 ) 07/30/2022 SPRINT PNS Lumbar (Left) Nearly 100% (12/17/2023 ) 05/15/2022 TPI Only helped for a few days 03/12/22 RFA BL L4/5, L5/S1 95% x 4 months 01/08/2022 MBB Bilat L4-5,5-S1 80% x 4 hours (positive diagnostic) 12/25/2021 MBB Bilat L4-5,5-S1 80% x 4 hours (positive diagnostic) MEDICATIONS Taken TO DATE (for the chief complaint(s)): Neuropathics: Neurontin (Gabapentin) NSAIDS: None Muscle Relaxants: Flexeril (Cyclobenzaprine) Topicals: Lidocaine (Gel, Cream or Ointment), Voltaren (Gel) Other Prescription or OTC Pain Medications: Tylenol (Acetaminophen), Aspirin Opioids: Tramadol, Hydrocodone (eg [place]) Data Reviewed Today: Allergies: ALLERGIES Allergen Reactions Bactrim [Sulfametho* Hives Blisters: head to toe Ibuprofen Rash Kefzol [Cefazolin S* Hives Peanut Anaphylaxis Sulfa (Sulfonamide * Hives, Unknown Blisters: head to toe Social History Tobacco Use Smoking status: Former Current packs/day: 0.00 Average packs/day: 0.3 packs/day for 1 year (0.3 ttl pk-yrs) Types: Cigarettes Start date: 04/06/1952 Quit date: 04/06/1953 Years since quittin.7 Smokeless tobacco: Never Vaping Use Vaping status: Never Used Substance Use Topics Alcohol use: Yes Comment: occasionally Drug use: No Comment: used drugs for 3 years 11/16/2023 12/17/2023 INTAKE PAIN ASSESSMENT Are you having pain associated with your visit today? Yes, Provider notified Yes, Provider notified Pain Scales Verbal (Numeric Rating or Visual Analog Scale) Verbal (Numeric Rating or Visual Analog Scale) Pain Level 8 Pain Location Shoulder-Right Shoulder-Right Description Sharp Aching;Sharp;Sore Duration Units Years Years Frequency Continuous Intermittent Intervention/Comfort measure Reposition;Medication Medication;Reposition;Relaxation;Cold;Exercise;He at;Massage;Positioning;Therapeutic techniques-CPRP Compliance: PDMP website checked and validated on 12/17/2023 by Roque Delgado MD All prescriptions have been APPROPRIATELY filled. No suspicious activity was identified. Risk Assessment: SANDRA-7: 09/19/2021 SANDRA - 7 SCORES Score 7 (0-4) minimal anxiety, (5-9) mild anxiety, (10-14) moderate anxiety, (15-21) severe anxiety PHQ-9: 09/19/2021 PHQ-9 Score 4 (0-4) minimal depression, (5-9) mild depression, (10-14) moderate depression, (15-19) moderately severe depression, (20-27) severe depression Diagnostic Studies: Relevant Imaging: MRI Spine Report MRI LUMBAR SPINE WO IVCON Exam End: 04/29/2022 9:42 AM (Final result) Narrative: * * *Final Report* * * DATE OF EXAM: Apr 29 2022 9:42AM [id number] - MRI LUMBAR SPINE WO IVCON / PROCEDURE REASON: multiple diagnoses * * * * Physician Interpretation * * * * EXAMINATION: MRI THORACIC SPINE WO IVCON, MRI LUMBAR SPINE WO IVCON CLINICAL HISTORY: Thoracic spine pain Chronic midline thoracic back pain Chronic midline thoracic back pain TECHNIQUE: Routine lumbosacral and thoracic spine MR protocol without gadolinium. MQ: [id number] COMPARISON: Lumbar thoracic radiograph 09/20/2021, CT abdomen and pelvis 07/25/2021. RESULT: THORACIC: Counting reference: Craniocervical and lumbosacral junctions. [...] and T1 hyperintense subcentimeter intervertebral lesions, likely hemangiomas.Multilevel eccentric anterior bridging osteophytes, compatible with DISH. [...] presacral soft tissues are normal in appearance. Impression: IMPRESSION: Multilevel lumbar spondylosisas outlined. Spinal canal stenosis is worst at L4-L5 causing (mild to moderate). Foraminal stenosis is worst at L4-5 and L5-S1 (mild to moderate). Exaggerated thoracic kyphosis. Multilevel eccentric anterior bridging osteophytes, compatible with DISH. Spondylosis without high-grade thoracic spinal canal or foraminal narrowing. Anatomic Thoracic/Lumbar Variant: None. L4-5 is considered the level of the iliac crest and assume there are 5 lumbar-type vertebrae. Steam Frame Operator: CHEIKH Transcribe Date/Time: Apr 29 2022 10:41A Dictated by : ANA MONK MD This examination was interpreted and the report reviewed and electronically signed by: KENDALL GOMEZ MD on Apr 29 2022 2:36PM EST X-ray Lt. Knee 10/2023 X-ray Rt. Knee 10/2023 X-ray Bilateral Shoulder 01/2023 Right shoulder: Suboptimal positioning. There appears to be severe glenohumeral osteoarthritis lfszjldz-ha-taqo contact. Faint chondrocalcinosis at the glenohumeral joint. Ossific density projectingover the humeral head/neck is suboptimally evaluated due to poor positioning though may represent aintra- articular body. Mild degenerative change acromioclavicular joint. Acromiohumeral interval is maintained. No acute fracture. Left shoulder: Suture anchor in the humeral head prior rotator cuff repair. Severe glenohumeral osteoarthritis with qzpg-oj-nzuj contact. Intra-articular bodies medial to the humeral neck and inferior aspect of the glenohumeral joint. Mild degenerative change acromioclavicular joint. Acromiohumeralinterval is maintained. No acute fracture. Degenerative changes in the visualized thoracic spine. IMPRESSION: Severe bilateral glenohumeral osteoarthritis. X-ray right foot 07/2022: No acute process X-ray Lt. Elbow, Rt. Hip 05/2022 Left elbow: Good alignment no fracture. Some degenerative changes. No effusion. Right hip: Well-maintained. No discrete fracture identified. Bony pelvis intact. Degenerative change left hip. Degenerative changes are noted in the lower lumbar spine. There is a tico in the visualized mid femoral shaft on right side. MRI Thoracic/Lumbar Spine 04/2022 THORACIC: Counting reference: Craniocervical and lumbosacral junctions. For the purposes of this report, L4-5is considered the level of the iliac crest and assume there are 5 lumbar-type vertebrae. Anatomic variant: None. Localizer images: Degenerative changes in bilateral shoulders. Bilateral renal cysts. Alignment: Exaggerated thoracic kyphosis. Cord: The thoracic spinal cord is within normal limits of signal intensity and morphology. Bone marrow signal/fracture: Scattered T2 and T1 hyperintense subcentimeter intervertebral lesions,likely hemangiomas. Multilevel eccentric anterior bridging osteophytes, compatible with DISH. No evidence of pathologic marrow infiltration. No evidence of prior fracture. Thoracic soft tissues: The paraspinal soft tissues are within normal limits. Canal and foramina: Facet arthrosis and ligamentum flavum thickening causing minimal left-sided T9-T10 neuroforamina and T10-T11 minimal left-sided neural foraminal narrowing. Otherwise, the thoraciccanal and foramina are patent within the constraints of the study. LUMBAR: Counting reference: Craniocervical and lumbosacral junctions. For the purposes of this report, L4-5is considered the level of the iliac crest [...] causing mild to moderate left-sided neural foraminal narrowingand mild right-sided neural foraminal narrowing. Spinal canal is patent. Sacrum and iliac wings: The visualized sacrum and iliac wings are within normal limits. The presacral soft tissues are normal in appearance. Multilevel lumbar spondylosisas outlined. Spinal canal stenosis is worst at L4- L5 causing (mild to moderate). Foraminal stenosis is [...] bony destructive process. Lumbar: There are five saw-vbh-mdvljwe lumbar vertebrae. No acute fracture or subluxations [...] thorax: Unremarkable. Electrodiagnostic Study (EMG): None Recent Labs: Creatinine Date Value Ref Range Status 12/14/2023 1.72 (H) 0.58 - 0.96 mg/dL Final No results found for: EGFR No results found for: PCGLUCOSE Current Medications, Past Medical History, Past Surgical History, Family History, Social History and Review of Systems: On today's date, noted above, I have confirmed and edited as necessary, the PFSH and ROS obtained by others. Physic al Exam: 12/17/23 0853 Pulse: 71 Resp: 14 SpO2: 99% Bilateral Shoulder: Palpation: Concordant tenderness to palpation at Supraspinatus insertion, bilateral Range of Motion: ER (45' right, 0' left), Abduction (90' right, 45' left) Special Tests: painful (positive) Juaquin-Thompson, Neer's on the left LUMBAR MUSCULOSKELETAL/NEURO EXAM Inspection: - Symmetric without [...] Althea's Signs: Deferred + CVA tenderness bilaterally IMPRESSION: 83 year old female, who presents with complaint(s) of thoracic, low back and BL flank pain. Reports her low back pain has improved significantly after lumbar RFA. She continue to report bilateral flank pain. 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 She has mild bilateral lumbar paraspinal tenderness with some triggering. Trigger pointinjection did not help. Reports no SE with her gabapentin, finds this is very helpful. Bilateral shoulder pain due to osteoarthritis, left shoulder responded well to RFA, no relief rightside. Right side had better relief to steroid injection in the joint. She is interested in surgicaloptions at this time. SPRINT PNS is helping tremendously, 100% relief of thoracolumbar pain. Diagnoses: (M19.011, M19.012) Primary osteoarthritis of both shoulders (primary encounter diagnosis) (M47.816) Lumbar spondylosis PLAN: Mari Lopez would benefit from the following to reach personal goals for decreasing pain, improving function and work participation, and/or improving quality of life: Medications: Requested Prescriptions No prescriptions requested or ordered in this encounter Gabapentin 300mg TID - has refills Flexeril 10mg TID PRN - has refills Interventional Procedures: Radiofrequency Ablation (Thermal RFA) - Suprascapular Nerve under ultrasound guidance LEFT-SIDED Human Resource Manager Needed: Radiofrequency Ablation - YES Anticoagulant - Hold Needed: NO HOLD REQUIRED FOR THIS PROCEDURE Anticoagulant - Currently Taking: None Allergies (relevant): None Scheduling - Mobility (Can Patient independently transfer on/off an OR or Procedure table?): YES (May schedule at any location) Scheduling - Additional Info: Schedule after January 13 - she will call when ready Studies: None Functional Scientologist: NONE Referrals: Orthopedics ([phone]) Follow-up: 3 months for medications CAREY Depending on response to the above plan, consider: SPRINT PNS Left Suprascapular Nerve, repeat steroid injection right shoulder (GH joint) if non-operative Compliance and Clinic Policies Reviewed and/or Discussed Today: None Attribution: In addition to reviewing the information noted above, some elements copied from my most recent clinical note(s), including the physical exam (completed in entirety today), and the impression and plan sections, have been updated where appropriate. All reflect current medical decision making from today's date. oRque Delgado MD Pain Management [facility] documented in this encounterC[facility] Telephone encounter Note * Telephone Encounter - Minna Blue LPN - 12/17/2023 8:46 AM EDT TC to pt. LM to call office, ask for triage nurse to get results. Minna Blue LPN [facility]09-11-2024 Telephone encounter Note* Telephone Encounter - Miryam Orozco APRN.CNP - 12/16/2023 7:25 PM EDT Can you please call the patient and let her know that I reviewed her lab results. TSH was mildly elevated. If she is not having any symptoms we can continue with current Synthroid dosing and recheck labs in 6 to 8 weeks. Triglycerides were elevated. Mild decreased kidney function noted. I would recommend that she continue to watch processed foods in the diet, increase lean protein, vegetables, get some form exercise. Keep scheduled appointments with health and fitness instructor. Please let me know what she prefers regarding her thyroid. Thank you Miryam Orozco APRN.DIGITAL DATA ANALYST [facility]09-10-2024 NoteHNO ID: [id number] Author: ROQUE DELGADO MD Service: ? Author Type: Physician Type: Progress Notes Filed: 12/17/2023 09:15 Note Text: [facility] Today's Date: 12/17/2023 Name: Mari Lopez : 1940 Purpose: Follow-up Patient Evaluation - [...] back pain with sciatica, Pertinent Past Surgeries: Tico and new knee cap in right leg (2016), Bilat total knee revisions (2004), Bilat TKA (1990), 08/14/2023 DH - Pain score 3/10. Patient underwent the following injection with Dr. Delgado on 07/15/23: Radiofrequency Ablation (Thermal RFA) - Suprascapular Nerve under fluoroscopic guidance LEFT-SIDED Patient reports 80% relief from the injection. Symptom relief lasted to date. During this time the patient was able to tolerate and participate in their ADL's with less pain and difficulty. Patient denies any adverse side effects such as nausea, vomiting, hives, fever, injection site redness/induration, headache, or new radicular symptoms. She is wondering about her right sided shoulder pain now. She would like to have the reagan done on the right side now. She has tried physical therapy and medications for this but she is still having significant shoulder pain on her right side. Plan at last in-person visit: 04/16/2023 (Roque Delgado MD) Medications: Requested Prescriptions Signed Prescriptions Disp Refills cyclobenzaprine (FLEXERIL) 10 mg tablet 90 tablet 1 Sig: Take 1 tablet by mouth three times a day as needed for muscle spasm. Gabapentin 300mg TID Flexeril 10mg TID PRN Interventional Procedures: Suprascapular Nerve Block with steroid infiltration under ultrasound guidance LEFT-SIDED Follow-up: 3 months for medications Depending on response to the above plan, consider: Left Suprascapular RFA; SPRINT PNS Left Suprascapular Nerve Interval History: Overall pain and functional disability since last visit: Better New Complaints since last visit: No Her right shoulder did not improve with RFA, left shoulder still doing well. She would like to see a surgeon to discuss right shoulder surgical options. She reports 100% relief of her low back and thoracic pain since the SPRINT PNS treatment. Other than a little stiffness in the morning, she has no low back pain. She is exercising regularly. She has lost nearly 80 pounds since July,. Current Pain Medications: Neuropathics: Gabapentin 300mg TID NSAIDS: Muscle Relaxants: Flexeril 10mg TID prn - reports she still has 5 refills left Topicals: Other Prescription or OTC Pain Medications: Ambien 10mg Opioids (when applicable): Tolerating Medication: Yes Medications helping improve ADL's and Self-care: Yes Anti-depressants or Mood-Stabilizers: None Anti-Coagulants: None 09/19/2021 10/02/2022 01/15/2023 12/17/2023 AG SPINE COMBINATION Questionnaire GREENLIGHT Completed Date 09/19/2021 Completed Date 01/15/2023 12/17/2023 Comments Monitored Medication Informed Consent ALEC - Gabapentin Questionnaire Opiod Risk Tool Opiod Risk Tool Opiod Risk Tool Completed Date 09/19/2021 10/02/2022 12/17/2023 Comments 7 low - 0 Completed Date 12/17/2023 Comments ALEC - Gabapentin Opioid Risk Tool Opiod Risk Tool Date Completed 12/17/2023 Comments low - 0 (All drug screens are appropriate unless indicated otherwise) Therapies Attended (Current or Most Recent): No Current Therapies Notable Events During Course of Treatment: 09/19/2021 - Initial HPI (Obtained by Avis Marrufo APRN.DIGITAL DATA ANALYST ). From 03/2022 - She previously inquired [...] Treatment History: PAIN PROCEDURES: DATE PROCEDURE IMPROVEMENT 11/16/2023 RFA Rt. Suprascapular Nerve No relief 07/15/2023 RFA Lt. Suprascapular Nerve 80% (12/17/2023 ) 02/16/2023 GH Joint. Bilateral 95% right x 4 months, 0% left 08/13/2022 SPRINT PNS Lumbar (Right) Nearly 10 (more content not included)... [facility]09-09-2024 Telephone encounter Note* Telephone Encounter - Gonzalo Holland - 12/14/2023 1:31 PM EDT Patient has been rescheduled with Dr. Delgado in [place] on 12/16 at 8:45am. Gonzalo Holland [facility]09-09-2024 Miscellaneous Notes* Telephone Encounter - Gonzalo Holland - 12/14/2023 1:31 PM EDT Patient has been rescheduled with Dr. Delgado in [place] on 12/16 at 8:45am. Gonzalo Holland * Telephone Encounter - Sofía Crowe - 12/14/2023 1:03 PM EDT This patient does not have mychart- but was scheduled for a VV Please reschedule her to in person as we do not schedule phone call visits any longer * Telephone Encounter - Sofía Crowe - 12/14/2023 1:03 PM EDT ----- Message from Linda Raymundo sent at 12/14/2023 12:40 PM EDT ----- Regarding: Spine Prebish Provider Phone Call Spine Prebish Provider Phone Call Patient: Mari Lopez Date of : 1940 Primary Care Provider: Lizy Capone MD Patient has been identified by name and Date of (Y/N): y Patient: Mari Lopez Date of : 1940 Provider for this encounter: Lizy Capone MD Reason for the call/escalation: Patient stated that she tried to message the office saying that herdyslexia causes her to have issues in technology so she would like to know if she can do a providerphone call like she did in the past. She would like a call back to elaborate or confirm Was Patient Referred to [facility]/Seek Emergency Treatment (Y/N): n Did Patient Agree (Y/N): n/a Was An Attempt Made To Transfer The Patient To The Office (Y/N): n Were You Able To Reach Someone At The Office (Y/N): n/a If Yes - Patient Was Transferred To (Caregivers Name): n/a If No - Which [facility] Leadership Portal Administrator Did You Speak With Regarding This Patient: n/a Was an appointment scheduled (Y/N): n Reason patient was requesting visit (RFV/signs and symptoms/diagnosis) : n/a Person calling if other than patient: self Return call to if other than patient: self Best contact number: [phone] Thank you, Linda Singh December 14, 2023 12:40 PM documented in this encounterC[facility] Telephone encounter Note * Telephone Encounter - Sofía Crowe - 12/14/2023 1:03 PM EDT This patient does not have mychart- but was scheduled for a VV Please reschedule her to in person as we do not schedule phone call visits any longer [facility] Telephone encounter Note* Telephone Encounter - Sebastien Sofía - 12/14/2023 1:03 PM EDT ----- Message from Linda Raymundo sent at 12/14/2023 12:40 PM EDT ----- Regarding: Spine Prebish Provider Phone Call Spine Prebish Provider Phone Call Patient: Mari Lopez Date of : 1940 Primary Care Provider: Lizy Capone MD Patient has been identified by name and Date of (Y/N): y Patient: Mari Lopez Date of : 1940 Provider for this encounter: Lizy Capone MD Reason for the call/escalation: Patient stated that she tried to message the office saying that herdyslexia causes her to have issues in technology so she would like to know if she can do a providerphone call like she did in the past. She would like a call back to elaborate or confirm Was Patient Referred to [facility]/Seek Emergency Treatment (Y/N): n Did Patient Agree (Y/N): n/a Was An Attempt Made To Transfer The Patient To The Office (Y/N): n Were You Able To Reach Someone At The Office (Y/N): n/a If Yes - Patient Was Transferred To (Caregivers Name): n/a If No - Which [facility] Leadership Portal Administrator Did You Speak With Regarding This Patient: n/a Was an appointment scheduled (Y/N): n Reason patient was requesting visit (RFV/signs and symptoms/diagnosis) : n/a Person calling if other than patient: self Return call to if other than patient: self Best contact number: [phone] Thank you, Linda Singh December 14, 2023 12:40 PM [facility]09-09-20[facility] Telephone encounter Note* Telephone Encounter - Miryam Orozco APRN.CNP - 12/14/2023 11:31 AM EDT Order for physical therapy has been placed. Will be faxed to [facility]. Miryam Orozco APRN.CNP [facility]09-09-2024 Miscellaneous Notes* Telephone Encounter - Miryam Orozco APRN.CNP - 12/14/2023 11:31 AM EDT Order for physical therapy has been placed. Will be faxed to [facility]. Miryam Orozco APRN.CNP * Telephone Encounter - Minna Blue LPN - 12/14/2023 10:36 AM EDT Pt came to window requesting a order for Physical Therapy due to frequent falls. She would like it faxed to [facility]. Minna Blue LPN documented in this encounterC[facility] Telephone encounter Note * Telephone Encounter - Minna Blue LPN - 12/14/2023 10:36 AM EDT Pt came to window requesting a order for Physical Therapy due to frequent falls. She would like it faxed to [facility]. Minna Blue LPN [facility]09-06-2024 Telephone encounter Note* Telephone Encounter - Lizy Capone MD - 12/11/2023 10:01 AM EDT OK to refill as ordered Lizy Capone MD [facility]09-06-2024 Miscellaneous Notes* Telephone Encounter - Lizy Capone MD - 12/11/2023 10:01 AM EDT OK to refill as ordered Lizy Capone MD * Telephone Encounter - Isabell Ashby - 12/11/2023 9:31 AM EDT Prescription Refill Information The patient has been identified by name and date of : Yes Caregiver verified no other encounters exist for this prescription request: Yes Caregiver confirmed with patient/requestor that no other refills are due, in the near future, with this provider at this time: Yes Note: patient is out of this medication this weekend, please send this RX today The last office visit in the department: 11/09/2023 Does the patient have a future office visit with this provider/department: Yes 01/28/2024 Requested Prescriptions Pending Prescriptions Disp Refills zolpidem (AMBIEN) 10 mg 30 tablet 2 Sig: Take 1 tablet by mouth at bedtime as needed for up to 90 days. Isabell Dove December 11, 2023 9:32 AM documented in this encounterC[facility]09-[facility]-2024 Telephone encounter Note * Telephone Encounter - Isabell Ashby - 12/11/2023 9:31 AM EDT Prescription Refill Information The patient has been identified by name and date of : Yes Caregiver verified no other encounters exist for this prescription request: Yes Caregiver confirmed with patient/requestor that no other refills are due, in the near future, with this provider at this time: Yes Note: patient is out of this medication this weekend, please send this RX today The last office visit in the department: 11/09/2023 Does the patient have a future office visit with this provider/department: Yes 01/28/2024 Requested Prescriptions Pending Prescriptions Disp Refills zolpidem (AMBIEN) 10 mg 30 tablet 2 Sig: Take 1 tablet by mouth at bedtime as needed for up to 90 days. Isabell Dove December 11, 2023 9:32 AM [facility]08-30-2024 NoteHNO ID: [id number] Author: STARR SOLANO MD Service: ? Author Type: Physician Type: Progress Notes Filed: 12/04/2023 09:14 Note Text: Mari Lopez is a 83 year old female who presents for question regarding Mirena IUD in place for her endometrial hyperplasia. Patient reports she was taken to the hospital for low blood pressure recently and was told by a physician that she should have her IUD removed as she does not need it in place and was not sure why a woman in her 80s had an IUD. Patient states she has not had any problems with her Mirena IUD she has no bleeding she has no pain. Patient is happy to keep the IUD in place as she has not had any concerns. She is monitoring her blood pressures at home they have been fine. She denies any changes with her medications. OB History T1 L1 SAB0 IAB0 Ectopic0 Multiple0 Live Births0 Bridal Consultant History LMP: Postmenopausal Age at Menarche: Age at First : Age at Menopause: Bridal Consultant History Comments: Sexual Activity: Never; No partner data on record Contraception: No contraception data on record PAST MEDICAL HISTORY No date: Chronic airway obstruction, not elsewhere classified No date: Essential hypertension, benign 07/30/2011: Insomnia No date: Obesity, unspecified No date: Open wound of knee, leg (except thigh), and ankle, complicated No date: Other pulmonary embolism and infarction No date: Phlebitis and thrombophlebitis of femoral vein (deep) (superficial) (HCC) No date: Unspecified sleep apnea PAST SURGICAL HISTORY 04/2004,05/11: ANESTHESIA HERNIA REPAIR LOWER ABDOMEN NOS Comment: gortex put in on 05/11 then taken out06/08 1991: ARTHRP KNE CONDYLEANDPLATU MEDIALANDLAT COMPARTMENTS Comment: bilateral total knee s([place]) 10/24/04 : ARTHRP KNE CONDYLEANDPLATU MEDIALANDLAT COMPARTMENTS Comment: bilateral total knee revisions No date: DELIVERY ONLY Comment: , low cervical No date: CHOLECYSTECTOMY 11/17/2017: COLONOSCOPY FLX DX W/COLLJ SPEC WHEN PFRMD Comment: Colonoscopy 02/17/07: DEBRIDEMENT SUBCUTANEOUS TISSUE 20 SQ CM/< Comment: LEFT LEG [id number]: DEBRIDEMENT SUBCUTANEOUS TISSUE 20 SQ CM/< Comment: LEFT LEG [id number]: DEBRIDEMENT SUBCUTANEOUS TISSUE 20 SQ CM/< Comment: LEFT LEG [id number]: DEBRIDEMENT SUBCUTANEOUS TISSUE 20 SQ CM/< Comment: LEFT LEG [id number]: DEBRIDEMENT SUBCUTANEOUS TISSUE 20 SQ CM/< Comment: LEFT LEG 03/03/07: DEBRIDEMENT SUBCUTANEOUS TISSUE 20 SQ CM/< Comment: LEFT LEG 11/17/2017: ESOPHAGOGASTRODUODENOSCOPY TRANSORAL DIAGNOSTIC Comment: EGD 07/08: GASTRIC BYPASS No date: HEMORRHOIDECTOMY INTERNAL RUBBER BAND LIGATIONS 01/07/2018: HYSTEROSCOPY BX W/WO DANDC 04/10/2016: PAST SURGICAL HISTORY OF Comment: Tico and new knee cap put in right leg 04/25/2016: PAST SURGICAL HISTORY OF Comment: had to debri right leg wound with cellutitis infection FAMILY HISTORY Problem Relation Age of Onset Cancer Mother ovarian Social History Tobacco Use Smoking status: Former Current packs/day: 0.00 Average packs/day: 0.3 packs/day for 1 year (0.3 ttl pk-yrs) Types: Cigarettes Start date: 04/06/1952 Quit date: 04/06/1953 Years since quittin.7 Smokeless tobacco: Never Vaping Use Vaping status: Never Used Substance Use Topics Alcohol use: Yes Comment: occasionally Drug use: No Comment: used drugs for 3 years Current Outpatient Medications Medication Sig levothyroxine (LEVOXYL) 125 mcg tablet Take 1 tablet by mouth once daily. Take on empty stomach. For thyroid. zolpidem (AMBIEN) 10 mg Take 1 tablet by mouth at bedtime as needed for up to 90 days. gabapentin (NEURONTIN) 300 mg capsule Take 1 capsule by mouth three times a day for 180 days. Take one pill 3 times per day Do not start before September 28, 2023. cyclobenzaprine (FLEXERIL) 10 mg tablet Take 1 tablet by mouth three times a day as needed for muscle spasm. polyethylene glycol 3350 (MIRALAX) 17 gram/dose powder Take by mouth once daily. Dissolve dose in 4 - 8 ounces of liquid and take as directed. polyethylene glycol 3350 (MIRALAX) 17 gram/dose powder Take once daily lisinopril-hydroCHLOROthiazide (ZESTORETIC) 10-12.5 mg per tablet Take 1 tablet by mouth once daily. furosemide (LASIX) 40 mg tablet take 1 tablet by mouth every day omeprazole (PRILOSEC) 20 mg capsule Take 1 capsule by mouth once daily. GEMTESA 75 mg tablet Take 1 tablet by mouth every afternoon. aspirin, enteric coated (ASPIRIN, ENTERIC COATED) 81 mg EC tablet Take 81 mg by mouth once daily. amLODIPine (NORVASC) 5 mg tablet Take by mouth. tolterodine ER (DETROL LA) 4 mg 24 hr capsule TAKE 1 CAPSULE BY MOUTH ONCE DAILY acetaminophen (TYLENOL) 500 mg tablet Take 1,000 mg by mouth twice daily. Diaper,Brief, Adult,Disposable (DEPEND UNDERWEAR FOR WOMEN XL) Use 5/day as needed for urinary incontinence metoprolol succinate ER (TOPROL XL) 50 mg 24 hr tablet Take by mouth. Qzyfjqjtrij-Whrxymjhp-Rqs C- (more content not included)...[facility]08-30-2024 History of Present illness Narrative* Starr Solano MD - 12/04/2023 7:57 AM EDT Mari Lopez is a 83 year old female who presents for question regarding Mirena IUD in place for herendometrial hyperplasia. Patient reports she was taken to the hospital for low blood pressure recently and was told by a physician that she should have her IUD removed as she does not need it in place and was not sure why a woman in her 80s had an IUD. Patient states she has not had any problems with her Mirena IUD she has no bleeding she has no pain. Patient is happy to keep the IUD in place as she has not had any concerns. She is monitoring her blood pressures at home they have been fine. Shedenies any changes with her medications. OB History T1 L1 SAB0 IAB0 Ectopic0 Multiple0 Live Births0 Bridal Consultant History LMP: Postmenopausal Age at Menarche: Age at First : Age at Menopause: Bridal Consultant History Comments: Sexual Activity: Never; No partner data on record Contraception: No contraception data on record PAST MEDICAL HISTORY No date: Chronic airway obstruction, not elsewhere classified No date: Essential hypertension, benign 07/30/2011: Insomnia No date: Obesity, unspecified No date: Open wound of knee, leg (except thigh), and ankle, complicated No date: Other pulmonary embolism and infarction No date: Phlebitis and thrombophlebitis of femoral vein (deep) (superficial) (HCC) No date: Unspecified sleep apnea PAST SURGICAL HISTORY 04/2004,05/11: ANESTHESIA HERNIA REPAIR LOWER ABDOMEN NOS Comment: gortex put in on 05/11 then taken out06/08 1990: ARTHRP KNE CONDYLE&PLATU MEDIAL&LAT COMPARTMENTS Comment: bilateral total knee s([place]) 10/24/04 : ARTHRP KNE CONDYLE&PLATU MEDIAL&LAT COMPARTMENTS Comment: bilateral total knee revisions No date: DELIVERY ONLY Comment: , low cervical No date: CHOLECYSTECTOMY 11/17/2017: COLONOSCOPY FLX DX W/COLLJ SPEC WHEN PFRMD Comment: Colonoscopy 02/17/07: DEBRIDEMENT SUBCUTANEOUS TISSUE 20 SQ CM/< Comment: LEFT LEG [id number]: DEBRIDEMENT SUBCUTANEOUS TISSUE 20 SQ CM/< Comment: LEFT LEG [id number]: DEBRIDEMENT SUBCUTANEOUS TISSUE 20 SQ CM/< Comment: LEFT LEG [id number]: DEBRIDEMENT SUBCUTANEOUS TISSUE 20 SQ CM/< Comment: LEFT LEG [id number]: DEBRIDEMENT SUBCUTANEOUS TISSUE 20 SQ CM/< Comment: LEFT LEG 03/03/07: DEBRIDEMENT SUBCUTANEOUS TISSUE 20 SQ CM/< Comment: LEFT LEG 11/17/2017: ESOPHAGOGASTRODUODENOSCOPY TRANSORAL DIAGNOSTIC Comment: EGD 07/08: GASTRIC BYPASS No date: HEMORRHOIDECTOMY INTERNAL RUBBER BAND LIGATIONS 01/07/2018: HYSTEROSCOPY BX W/WO D&C 04/10/2016: PAST SURGICAL HISTORY OF Comment: [place] and new knee cap put in right leg 04/25/2016: PAST SURGICAL HISTORY OF Comment: had to debri right leg wound with cellutitis infection FAMILY HISTORY Problem Relation Age of Onset Cancer Mother ovarian Social History Tobacco Use Smoking status: Former Current packs/day: 0.00 Average packs/day: 0.3 packs/day for 1 year (0.3 ttl pk-yrs) Types: Cigarettes Start date: 04/06/1952 Quit date: 04/06/1953 Years since quittin.7 Smokeless tobacco: Never Vaping Use Vaping status: Never Used Substance Use Topics Alcohol use: Yes Comment: occasionally Drug use: No Comment: used drugs for 3 years Current Outpatient Medications Medication Sig levothyroxine (LEVOXYL) 125 mcg tablet Take 1 tablet by mouth once daily. Take on empty stomach. For thyroid. zolpidem (AMBIEN) 10 mg Take 1 tablet by mouth at bedtime as needed for up to 90 days. gabapentin (NEURONTIN) 300 mg capsule Take 1 capsule by mouth three times a day for 180 days. Take one pill 3 times per day Do not start before September 28, 2023. cyclobenzaprine (FLEXERIL) 10 mg tablet Take 1 tablet by mouth three times a day as needed for muscle spasm. polyethylene glycol 3350 (MIRALAX) 17 gram/dose powder Take by mouth once daily. Dissolve dose in 4- 8 ounces of liquid and take as directed. polyethylene glycol 3350 (MIRALAX) 17 gram/dose powder Take once daily lisinopril-hydroCHLOROthiazide (ZESTORETIC) 10-12.5 mg per tablet Take 1 tablet by mouth once daily. furosemide (LASIX) 40 mg tablet take 1 tablet by mouth every day omeprazole (PRILOSEC) 20 mg capsule Take 1 capsule by mouth once daily. GEMTESA 75 mg tablet Take 1 tablet by mouth every afternoon. aspirin, enteric coated (ASPIRIN, ENTERIC COATED) 81 mg EC tablet Take 81 mg by mouth once daily. amLODIPine (NORVASC) 5 mg tablet Take by mouth. tolterodine ER (DETROL LA) 4 mg 24 hr capsule TAKE 1 CAPSULE BY MOUTH ONCE DAILY acetaminophen (TYLENOL) 500 mg tablet Take 1,000 mg by mouth twice daily. Diaper,Brief, Adult,Disposable (DEPEND UNDERWEAR FOR WOMEN XL) Use 5/day as needed for urinary incontinence metoprolol succinate ER (TOPROL XL) 50 mg 24 hr tablet Take by mouth. Mmwxevpggsb-Ovvizkpuh-Zgi C-Mn (GLUCOSAMINE CHONDROITIN MAXSTR) 500-400 mg cap Take 1 capsule by mouth three times daily. COMPOUNDED PRESCRIPTION Stair lift DAILY-LUISITO tablet TAKE 1 TABLET BY MOUTH ONCE DAILY. reuizak-uaozbspah-pwmwfcp D3 (CALCIUM 500+D) 500 mg(1,250mg) -200 unit [...] No current facility-administered medications for this visit. Allergies As of Date: 12/04/2023 Allergen Noted Reaction BACTRIM [SULFAMETHOXAZOLE-TRIMETH*07/23/2016 Hives IBUPROFEN 11/08/2015 Rash KEFZOL [CEFAZOLIN SODIUM] 08/09/2018 Hives PEANUT 03/31/2023 Anaphylaxis SULFA (SULFONAMIDE ANTIBIOTICS) 07/23/2016 Hives and Unknown Fully Assessed 11/16/2023 REVIEW OF SYSTEMS Abdomen: no pain Bladder: no dysuria. . Expanded ROS: no fever Allergies and current medication updated:Yes EXAM: BP 108/60 Wt 223 lb (101.2kg) GENERAL: pleasant, female in no apparent distress HEENT: Normocephalic and atraumatic NECK: full range of motion NEURO: alert and oriented x3,exam grossly non-focal ASSESSMENT AND PLAN: Encounter Diagnosis ICD-10-CM 1. 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 IUD (intrauterine device) in place Z97.5 3. discussed with the patient at this point I would leave the Mirena IUD in place although we do not know how much hormonal action after 5 years is present the Mirena IUD is approved for 8 years. Since she is not having any concerns with the Mirena IUD and there is likely still hormonal stimulationpresent I would leave the Mirena IUD for 8 years as she still has risk factors for recurrence of endometrial hyperplasia. After discussion patient was in agreement with this plan. She understands that she will need to have a referral for removal and that she can do this by calling the office or placing a MyChart request. I spent a total of 20 minutes on the date of the service which included preparing to see the patient, aano-ky-odkf patient care, completing clinical documentation, obtaining and/or reviewing separately obtained history, performing a medically appropriate examination, and counseling and educating the patient/family/caregiver. Starr Broderick MD documented in this encounterC[facility] Telephone encounter Note * Telephone Encounter - Jorje Nagel LPN - 11/18/2023 11:25 AM EDT Attempted to contact patient to follow up after procedure. Left a brief message asking patient to return call if they have any questions or concerns. Jorje Nagel LPN [facility]08-14-2024 Miscellaneous Notes* Telephone Encounter - Jorje Nagel LPN - 11/18/2023 11:25 AM EDT Attempted to contact patient to follow up after procedure. Left a brief message asking patient to return call if they have any questions or concerns. Jorje Nagel LPN documented in this encounterC[facility] Nurse Note* Rom Cano LPN - 11/16/2023 10:57 AM EDT Order has been placed in the patient's [...] ambulatory method. Patient left in good condition. [facility]08-[facility] Nurse Note* Rom Cano LPN - 11/16/2023 10:57 AM EDT Order has been placed in the patient's [...] ambulatory method. Patient left in good condition. * Amada Velasco LPN - 11/16/2023 10:22 AM EDT Procedure to be performed: Unilateral Right SUPRASCAPULAR RADIOFREQUENCY ABLATION Patient was wheeled on stretcher from pre op bay to procedure room and assisted onto the procedure tablePatient s procedure was performed in an [facility] Procedure room. Pause completed at [...] obtain another set of vitals. Time Out: 1041 Confirmed patient name, date of , procedure site, laterality, and allergies Procedure Start: 104 Procedure End: 1054 * Mago Downing LPN - 11/16/2023 9:58 AM EDT Human Resource Manager's Name: Javed Sawyer Are you on a blood thinner: n [...] to receive one? n documented in this encounterC[facility]-2024 Instructions* Patient Instructions* Rom Cano LPN - 11/16/2023 10:41 AM EDT PROCEDURE DISCHARGE INSTRUCTIONS 11/16/2023 Mari Gerry Lopez 1940 Physician: Roque Delgado MD Procedure: Facet Joint Branch Radiofrequency Denervation Post Procedure Instructions: If sedation not given, no driving for 3 hours after the procedure., Rest the day of the procedure.,You may resume normal activities the day after the procedure, as tolerated., Apply cold compresses to injection site if needed., If medically acceptable, take over the counter anti-inflammatories such as ibuprofen or Aleve if needed for post procedure discomfort., No hot baths, hot tubs or hot compr esses for 24 hours., and Your pain should subside in the next 4-6 weeks. If you have any of the following [...] emergency care and why. documented in this encounterC[facility] Nurse Note* Amada Velasco LPN - 11/16/2023 10:22 AM EDT Procedure to be performed: Unilateral Right SUPRASCAPULAR RADIOFREQUENCY ABLATION Patient was wheeled on stretcher from pre op bay to procedure room and assisted onto the procedure tablePatient s procedure was performed in an [facility] Procedure room. Pause completed at [...] obtain another set of vitals. Time Out: 1041 Confirmed patient name, date of , procedure site, laterality, and allergies Procedure Start: 1043 Procedure End: 105 [facility]08-12-2024 NoteHNO ID: [id number] Author: ROQUE DELGADO MD Service: ? Author Type: Physician Type: Progress Notes Filed: 11/16/2023 11:10 Note Text: [facility] Date: 11/16/2023 Patient name: Mari Lopez Physician performing procedure: Roque Delgado M.D. M.B.A. Diagnosis: (M19.011, M19.012) Primary osteoarthritis of both shoulders (primary encounter diagnosis) Procedure: Radiofrequency Ablation (Thermal RFA) - Suprascapular Nerve under fluoroscopic guidance RIGHT-SIDED Injectate: A total of 3 ml volume was injected The injectate consisted of: 1 ml of Depo-Medrol (40mg/ml), The remainder consisting of 0.75% Bupivacaine Comments: Strong sensory and motor stim Improvement after today's procedure: as per nursing report HPI: Mari Lopez is an 83 year old FEMALE who presents today, in pain, for the procedure noted above. Review of Systems: Pertinent Positives: MSK: pain in the region being treated Neuro: weakness or numbness in the region being treated (unless otherwise noted) Skin: Negative (No itching) Eyes: Negative (No blurred or double vision) Respiratory: Negative (No Cough, Ykujczkpd-cg-nedbhg, Dyspnea on exertion, wheezing) Cardiovascular: Negative (No Chest Pain, Tightness, Pressure, Palpitations) Gastrointestinal: Negative (No Abdominal pain, Nausea, Vomiting, Constipation, Diarrhea) Genitourinary: Negative (No dysuria) Hematologic: Negative (No bleeding, bruising) OB: is Denied or Not Applicable Endocrine: Negative (No hot/cold intolerance) Psychiatric: Negative (No depression, anxiety or suicidal ideation) PAST MEDICAL HISTORY No date: Chronic airway obstruction, not elsewhere classified No date: Essential hypertension, benign 07/30/2011: Insomnia No date: Obesity, unspecified No date: Open wound of knee, leg (except thigh), and ankle, complicated No date: Other pulmonary embolism and infarction No date: Phlebitis and thrombophlebitis of femoral vein (deep) (superficial) ([facility]) No date: Unspecified sleep apnea PAST SURGICAL HISTORY 04/2004,05/11: ANESTHESIA HERNIA REPAIR LOWER ABDOMEN NOS Comment: gortex put in on 05/11 then taken out06/08 1991: ARTHRP TOMMY CONDYLEANDPLATU MEDIALANDLAT COMPARTMENTS Comment: bilateral total knee s([place]) 10/24/04 : ARTHRP TOMMY CONDYLEANDPLATU MEDIALANDLAT COMPARTMENTS Comment: bilateral total knee revisions No date: DELIVERY ONLY Comment: , low cervical No date: CHOLECYSTECTOMY 11/17/2017: COLONOSCOPY FLX DX W/COLLJ SPEC WHEN PFRMD Comment: Colonoscopy 02/17/07: DEBRIDEMENT SUBCUTANEOUS TISSUE 20 SQ CM/< Comment: LEFT LEG [id number]: DEBRIDEMENT SUBCUTANEOUS TISSUE 20 SQ CM/< Comment: LEFT LEG [id number]: DEBRIDEMENT SUBCUTANEOUS TISSUE 20 SQ CM/< Comment: LEFT LEG [id number]: DEBRIDEMENT SUBCUTANEOUS TISSUE 20 SQ CM/< Comment: LEFT LEG [id number]: DEBRIDEMENT SUBCUTANEOUS TISSUE 20 SQ CM/< Comment: LEFT LEG 03/03/07: DEBRIDEMENT SUBCUTANEOUS TISSUE 20 SQ CM/< Comment: LEFT LEG 11/17/2017: ESOPHAGOGASTRODUODENOSCOPY TRANSORAL DIAGNOSTIC Comment: EGD 07/08: GASTRIC BYPASS No date: HEMORRHOIDECTOMY INTERNAL RUBBER BAND LIGATIONS 01/07/2018: HYSTEROSCOPY BX W/WO DANDC 04/10/2016: PAST SURGICAL HISTORY OF Comment: [place] and new knee cap put in right leg 04/25/2016: PAST SURGICAL HISTORY OF Comment: had to debri right leg wound with cellutitis infection FAMILY HISTORY Problem Relation Age of Onset Cancer Mother ovarian Social History Tobacco Use Smoking status: Former Packs/day: 0.25 Years: 1.00 Additional pack years: 0.00 Total pack years: 0.25 Types: Cigarettes Quit date: 04/06/1953 Years since quittin.6 Smokeless tobacco: Never Vaping Use Vaping Use: Never used Substance Use Topics Alcohol use: Yes Comment: occasionally Drug use: No Comment: used drugs for 3 years Current Outpatient Medications on File Prior to Visit Medication Sig levothyroxine (LEVOXYL) 125 mcg tablet Take 1 tablet by mouth once daily. Take on empty stomach. For thyroid. zolpidem (AMBIEN) 10 mg Take 1 tablet by mouth at bedtime as needed for up to 90 days. gabapentin (NEURONTIN) 300 mg capsule Take 1 capsule by mouth three times a day for 180 days. Take one pill 3 times per day Do not start before September 28, 2023. cyclobenzaprine (FLEXERIL) 10 mg tablet Take 1 tablet by mouth three times a day as needed for muscle spasm. polyethylene glycol 3350 (MIRALAX) 17 gram/dose powder Take by mouth once daily. Dissolve dose in 4 - 8 ounces of liquid and take as directed. polyethylene glycol 3350 (MIRALAX) 17 gram/dose powder Take once daily lisinopril-hydroCHLOROthiazide (ZESTORETIC) 10-12.5 mg per tablet Take 1 tablet by mouth once daily. furosemide (LASIX) 40 mg tablet take 1 tablet by mouth every day omeprazole (PRILOSEC) 20 mg capsule Take 1 capsule by mouth once daily. GEMTESA 75 mg tablet Take (more content not included)...[facility]08-12-2024 History of Present illness Narrative* Roque Delgado MD - 11/16/2023 10:13 AM EDT [facility] Date: 11/16/2023 Patient name: Mari Lopez Physician performing procedure: Roque Delgado M.D., M.B.A. Diagnosis: (M19.011, M19.012) Primary osteoarthritis of both shoulders (primary encounter diagnosis) Procedure: Radiofrequency Ablation (Thermal RFA) - Suprascapular Nerve under fluoroscopic guidance RIGHT-SIDED Injectate: A total of 3 ml volume was injected The injectate consisted of: 1 ml of Depo-Medrol (40mg/ml), The remainder consisting of 0.75% Bupivacaine Comments: Strong sensory and motor stim Improvement after today's procedure: as per nursing report HPI: Mari Lopez is an 83 year old FEMALE who presents today, in pain, for the procedure noted above. Review of Systems: Pertinent Positives: MSK: pain in the region being treated Neuro: weakness or numbness in the region being treated (unless otherwise noted) Skin: Negative (No itching) Eyes: Negative (No blurred or double vision) Respiratory: Negative (No Cough, Jkimdduxp-vl-ktdjlb, Dyspnea on exertion, wheezing) Cardiovascular: Negative (No Chest Pain, Tightness, Pressure, Palpitations) Gastrointestinal: Negative (No Abdominal pain, Nausea, Vomiting, Constipation, Diarrhea) Genitourinary: Negative (No dysuria) Hematologic: Negative (No bleeding, bruising) OB: is Denied or Not Applicable Endocrine: Negative (No hot/cold intolerance) Psychiatric: Negative (No depression, anxiety or suicidal ideation) PAST MEDICAL HISTORY No date: Chronic airway obstruction, not elsewhere classified No date: Essential hypertension, benign 07/30/2011: Insomnia No date: Obesity, unspecified No date: Open wound of knee, leg (except thigh), and ankle, complicated No date: Other pulmonary embolism and infarction No date: Phlebitis and thrombophlebitis of femoral vein (deep) (superficial) (HCC) No date: Unspecified sleep apnea PAST SURGICAL HISTORY 04/2004,05/11: ANESTHESIA HERNIA REPAIR LOWER ABDOMEN NOS Comment: gortex put in on 05/11 then taken out06/08 1990: ARTHRP KNE CONDYLE&PLATU MEDIAL&LAT COMPARTMENTS Comment: bilateral total knee s([place]) 10/24/04 : ARTHRP KNE CONDYLE&PLATU MEDIAL&LAT COMPARTMENTS Comment: bilateral total knee revisions No date: DELIVERY ONLY Comment: , low cervical No date: CHOLECYSTECTOMY 11/17/2017: COLONOSCOPY FLX DX W/COLLJ SPEC WHEN PFRMD Comment: Colonoscopy 02/17/07: DEBRIDEMENT SUBCUTANEOUS TISSUE 20 SQ CM/< Comment: LEFT LEG [id number]: DEBRIDEMENT SUBCUTANEOUS TISSUE 20 SQ CM/< Comment: LEFT LEG [id number]: DEBRIDEMENT SUBCUTANEOUS TISSUE 20 SQ CM/< Comment: LEFT LEG [id number]: DEBRIDEMENT SUBCUTANEOUS TISSUE 20 SQ CM/< Comment: LEFT LEG [id number]: DEBRIDEMENT SUBCUTANEOUS TISSUE 20 SQ CM/< Comment: LEFT LEG 03/03/07: DEBRIDEMENT SUBCUTANEOUS TISSUE 20 SQ CM/< Comment: LEFT LEG 11/17/2017: ESOPHAGOGASTRODUODENOSCOPY TRANSORAL DIAGNOSTIC Comment: EGD 07/08: GASTRIC BYPASS No date: HEMORRHOIDECTOMY INTERNAL RUBBER BAND LIGATIONS 01/07/2018: HYSTEROSCOPY BX W/WO D&C 04/10/2016: PAST SURGICAL HISTORY OF Comment: [place] and new knee cap put in right leg 04/25/2016: PAST SURGICAL HISTORY OF Comment: had to debri right leg wound with cellutitis infection FAMILY HISTORY Problem Relation Age of Onset Cancer Mother ovarian Social History Tobacco Use Smoking status: Former Packs/day: 0.25 Years: 1.00 Additional pack years: 0.00 Total pack years: 0.25 Types: Cigarettes Quit date: 04/06/1953 Years since quittin.6 Smokeless tobacco: Never Vaping Use Vaping Use: Never used Substance Use Topics Alcohol use: Yes Comment: occasionally Drug use: No Comment: used drugs for 3 years Current Outpatient Medications on File Prior to Visit Medication Sig levothyroxine (LEVOXYL) 125 mcg tablet Take 1 tablet by mouth once daily. Take on empty stomach. For thyroid. zolpidem (AMBIEN) 10 mg Take 1 tablet by mouth at bedtime as needed for up to 90 days. gabapentin (NEURONTIN) 300 mg capsule Take 1 capsule by mouth three times a day for 180 days. Take one pill 3 times per day Do not start before September 28, 2023. cyclobenzaprine (FLEXERIL) 10 mg tablet Take 1 tablet by mouth three times a day as needed for muscle spasm. polyethylene glycol 3350 (MIRALAX) 17 gram/dose powder Take by mouth once daily. Dissolve dose in 4- 8 ounces of liquid and take as directed. polyethylene glycol 3350 (MIRALAX) 17 gram/dose powder Take once daily lisinopril-hydroCHLOROthiazide (ZESTORETIC) 10-12.5 mg per tablet Take 1 tablet by mouth once daily. furosemide (LASIX) 40 mg tablet take 1 tablet by mouth every day omeprazole (PRILOSEC) 20 mg capsule Take 1 capsule by mouth once daily. GEMTESA 75 mg tablet Take 1 tablet by mouth every afternoon. aspirin, enteric coated (ASPIRIN, ENTERIC COATED) 81 mg EC tablet Take 81 mg by mouth once daily. amLODIPine (NORVASC) 5 mg tablet Take by mouth. tolterodine ER (DETROL LA) 4 mg 24 hr capsule TAKE 1 CAPSULE BY MOUTH ONCE DAILY acetaminophen (TYLENOL) 500 mg tablet Take 1,000 mg by mouth twice daily. Diaper,Brief, Adult,Disposable (DEPEND UNDERWEAR FOR WOMEN XL) Use 5/day as needed for urinary incontinence metoprolol succinate ER (TOPROL XL) 50 mg 24 hr tablet Take by mouth. Kixhatprdlu-Jtbbwxjbb-Reu C-Mn (GLUCOSAMINE CHONDROITIN MAXSTR) 500-400 mg cap Take 1 capsule by mouth three times daily. COMPOUNDED PRESCRIPTION Stair lift DAILY-LUISITO tablet TAKE 1 TABLET BY MOUTH ONCE DAILY. ckcfvrl-whlvyabgf-wgfedog D3 (CALCIUM 500+D) 500 mg(1,250mg) -200 unit [...] appropriate Assessment and Plan: As noted above [place] protocol documentation / Pre-Procedure Checklist: Consent: Obtained [...] written consent to proceed and was transported intothe procedure room Surgical/Procedure pause or Time Out : Time Out was led by the physician in the procedure room, with the patient and all staff present andparticipating The following information was verified during the Time Out process: Patient name, patient date of , procedure site (marked), laterality, anticoagulants and allergies Procedure: The patient was prepped and draped in a sterile fashion in the supine position after informed consent was signed and all patient questions were answered including the risks, benefits, alternative treatment options, and prognosis. The risks are as mentioned above. After preliminary films were obtained and after skin preparation, a 25 gauge needle was used to anesthetize the skin with 3-5 cc of 1% Lidocaine. The outer cannula of a 20-gauge RFA needle was inserted with fluoroscopic guidance to contact bone at the base of the suprascapular notch. Needle position was then confirmed in multiple views. Test stimulation was performed to ensure that there was no inadvertent peripheral nerve stimulation. The soft tissues were then infiltrated with 1-2 ccs. of buffered 1% Lidocaine without Epinephrine. Subsequently, a percutaneous neurotomy was carried out for 90 seconds at 80 degrees Celsius. The procedure was repeated, one additional time for a total of two lesions per nerve. Appropriate radiographs were obtained to verify the probe placement during the neurotomy. After ablation and prior to needle removal, the medication noted above was then injected ateach site. The needle was then removed. Appropriate radiographs were obtained with results as [...] instructions was offered to the patient. Roque Delgado MD, MBA Pain Management [facility] [facility] * Mago Downing LPN - 11/16/2023 10:06 AM EDT Review of Systems Constitutional: Positive for activity change. Negative for chills, fever and unexpected weight change. Genitourinary: Negative for difficulty urinating. Musculoskeletal: Positive for arthralgias, back pain, gait problem, joint swelling and myalgias. Negative for neck pain and neck stiffness. Neurological: Negative for weakness, numbness and headaches. Psychiatric/Behavioral: Negative for dysphoric mood, sleep disturbance and suicidal ideas. The patient is not nervous/anxious. documented in this encounterCleveland [facility]08-12-2024 NoteHNO ID: [id number] Author: MAGO DOWNING LPN Service: ? Author Type: LICENSED NURSE Type: Progress Notes Filed: 11/16/2023 11:10 Note Text: Review of Systems Constitutional: Positive for activity change. Negative for chills, fever and unexpected weight change. Genitourinary: Negative for difficulty urinating. Musculoskeletal: Positive for arthralgias, back pain, gait problem, joint swelling and myalgias. Negative for neck pain and neck stiffness. Neurological: Negative for weakness, numbness and headaches. Psychiatric/Behavioral: Negative for dysphoric mood, sleep disturbance and suicidal ideas. The patient is not nervous/anxious.[facility] 11-16-2023 Nurse Note* Mago Downing LPN - 11/16/2023 9:58 AM EDT Human Resource Manager's Name: Javed Sawyer Are you on a blood thinner: n [...] are you scheduled to receive one? n [facility]08-05-2024 Instructions* Patient Instructions* Miryam Orozco APRN.DIGITAL DATA ANALYST - 11/09/2023 9:32 AM EDT Hold amlodipine/norvasc 5mg Monitor blood pressure, goal 130/80 or less Continue to take current medications Get repeat labs completed, prior to next office visit Keep scheduled appointments with specialists Monitor left lower leg, call the office if you notice any redness or skin is hot to touch documented in this encounterCleveland [facility]08-05-2024 History of Present illness Narrative* Miryma Orozco APRN.CNP - 11/09/2023 9:20 AM EDT This is a 83 year old female who presents today with: Patient presents with: Follow Up HISTORY OF PRESENT ILLNESS: Mari Lopez is a 83 year old female. Patient presents with: Follow Up 3 month follow up Has recently had some lower BP readings at home. Refers that nephrology noted lower blood pressure reading in their office, recommend discussing with PCP team. Has noticed some mild dizziness with position changes. No chest pain Was hospitalized recently due to fecal impaction, [facility]. Doing well since discharge. Taking Miralax daily. History of incontinence, Following with Dr. Hernandez (urology). Taking Gemtesa 75 mg daily, which has been helpful. Cystoscopy normal. Has bathroom schedule to empty bladder. Chronic back pain: Following with pain management, Dr. Delgado, Had SPR device placement/removal. Feelng well. Knee Pain: Using Voltaren gel as needed. Left Shoulder: Has been having ongoing pain for about 5-6 months. Pain is constant. Has been working on at home exercises. refers that they are discussing possible surgery.Just had steroid injection.Discussion of using a stimulator in the future. LLE: Lasix 40 mg for Lasix daily. CKD4: Following with Nephrology, Dr. Gilmore. HTN: Taking Lisinopril/hctz 10/12.5 mg, Norvasc 5 mg and Toprol XL 50 mg daily. Hypothyroid: Taking levothyroxine 125 mcg daily. Cardiology: Following with Dr. Jackson. Has been working out 3 times weekly and watching diet. Sleep: Taking Ambien 10 mg at bedtime. PAST MEDICAL HISTORY: PAST MEDICAL HISTORY No date: Chronic airway obstruction, not elsewhere classified No date: Essential hypertension, benign 07/30/2011: Insomnia No date: Obesity, unspecified No date: Open wound of knee, leg (except thigh), and ankle, complicated No date: Other pulmonary embolism and infarction No date: Phlebitis and thrombophlebitis of femoral vein (deep) (superficial) (HCC) No date: Unspecified sleep apnea PAST SURGICAL HISTORY 04/2004,05/11: ANESTHESIA HERNIA REPAIR LOWER ABDOMEN NOS Comment: gortex put in on 05/11 then taken out06/08 1991: ARTHRP KNE CONDYLE&PLATU MEDIAL&LAT COMPARTMENTS Comment: bilateral total knee s([place]) 10/24/04 : ARTHRP KNE CONDYLE&PLATU MEDIAL&LAT COMPARTMENTS Comment: bilateral total knee revisions No date: DELIVERY ONLY Comment: , low cervical No date: CHOLECYSTECTOMY 11/17/2017: COLONOSCOPY FLX DX W/COLLJ SPEC WHEN PFRMD Comment: Colonoscopy 02/17/07: DEBRIDEMENT SUBCUTANEOUS TISSUE 20 SQ CM/< Comment: LEFT LEG [id number]: DEBRIDEMENT SUBCUTANEOUS TISSUE 20 SQ CM/< Comment: LEFT LEG [id number]: DEBRIDEMENT SUBCUTANEOUS TISSUE 20 SQ CM/< Comment: LEFT LEG [id number]: DEBRIDEMENT SUBCUTANEOUS TISSUE 20 SQ CM/< Comment: LEFT LEG [id number]: DEBRIDEMENT SUBCUTANEOUS TISSUE 20 SQ CM/< Comment: LEFT LEG 03/03/07: DEBRIDEMENT SUBCUTANEOUS TISSUE 20 SQ CM/< Comment: LEFT LEG 11/17/2017: ESOPHAGOGASTRODUODENOSCOPY TRANSORAL DIAGNOSTIC Comment: EGD 07/08: GASTRIC BYPASS No date: HEMORRHOIDECTOMY INTERNAL RUBBER BAND LIGATIONS 01/07/2018: HYSTEROSCOPY BX W/WO D&C 04/10/2016: PAST SURGICAL HISTORY OF Comment: [place] and new knee cap put in right leg 04/25/2016: PAST SURGICAL HISTORY OF Comment: had to debri right leg wound with cellutitis infection ALLERGIES Bactrim [Sulfamethoxazole-Trimethoprim], Ibuprofen, Kefzol [Cefazolin Sodium], Peanut, and Sulfa (Sulfonamide Antibiotics) MEDICATIONS Current Outpatient Medications Medication Sig levothyroxine (LEVOXYL) 125 mcg tablet Take 1 tablet by mouth once daily. Take on empty stomach. For thyroid. zolpidem (AMBIEN) 10 mg Take 1 tablet by mouth at bedtime as needed for up to 90 days. gabapentin (NEURONTIN) 300 mg capsule Take 1 capsule by mouth three times a day for 180 days. Take one pill 3 times per day Do not start before September 28, 2023. cyclobenzaprine (FLEXERIL) 10 mg tablet Take 1 tablet by mouth three times a day as needed for muscle spasm. polyethylene glycol 3350 (MIRALAX) 17 gram/dose powder Take by mouth once daily. Dissolve dose in 4- 8 ounces of liquid and take as directed. polyethylene glycol 3350 (MIRALAX) 17 gram/dose powder Take once daily lisinopril-hydroCHLOROthiazide (ZESTORETIC) 10-12.5 mg per tablet Take 1 tablet by mouth once daily. furosemide (LASIX) 40 mg tablet take 1 tablet by mouth every day omeprazole (PRILOSEC) 20 mg capsule Take 1 capsule by mouth once daily. GEMTESA 75 mg tablet Take 1 tablet by mouth every afternoon. aspirin, enteric coated (ASPIRIN, ENTERIC COATED) 81 mg EC tablet Take 81 mg by mouth once daily. amLODIPine (NORVASC) 5 mg tablet Take by mouth. tolterodine ER (DETROL LA) 4 mg 24 hr capsule TAKE 1 CAPSULE BY MOUTH ONCE DAILY acetaminophen (TYLENOL) 500 mg tablet Take 1,000 mg by mouth twice daily. Diaper,Brief, Adult,Disposable (DEPEND UNDERWEAR FOR WOMEN XL) Use 5/day as needed for urinary incontinence metoprolol succinate ER (TOPROL XL) 50 mg 24 hr tablet Take by mouth. Wyqraazsnnx-Ztqezduwv-Hzr C-Mn (GLUCOSAMINE CHONDROITIN MAXSTR) 500-400 mg cap Take 1 capsule by mouth three times daily. COMPOUNDED PRESCRIPTION Stair lift DAILY-LUISITO tablet TAKE 1 TABLET BY MOUTH ONCE DAILY. eczqgxc-dlzulxkif-bodxtmg D3 (CALCIUM 500+D) 500 mg(1,250mg) -200 unit [...] Types: Cigarettes Quit date: 04/06/1953 Years since quittin.6 Smokeless tobacco: Never Vaping Use Vaping Use: [...] heat intolerance, polyuria, polydipsia and goiter NEURO: + Dizziness MOOD: Negative for depression, anxiety, or suicidal ideation. EXAM: BP 106/60 Pulse 104 Resp 16 Wt 99 kg (218 lb 4.1 oz) SpO2 100% BMI 39.92 kg/m PHYSICAL EXAM: Skin: Skin color, texture, turgor normal, no suspicious rashes or lesions. Head: Normocephalic, no masses, lesions, tenderness or abnormalities. Eyes: Anicteric sclera. Extraocular movements are intact. Lungs: Lungs clear to auscultation. No wheezing, rhonchi, rales. Heart: RRR without murmur, gallop, or rubs. No ectopy. Extremities: No deformities, edema, skin discoloration, clubbing or cyanosis. Good capillary refill. Peripheral Pulses: Normal, Capillary refill <2secs, strong peripheral pulses, Pulses palpable. Neurologic: Gait normal. Sensation grossly intact. ASSESSMENT/PLAN: 1. Dizziness - ICD9: 780.4, ICD10: R42 (primary diagnosis) - Due to episodes of dizziness and hypotension at home, recommend trialing off of amlodipine for the next 3 to 5 days and monitor blood pressure at home. - Instructed to message the office with an update. - Stay well-hydrated. - Instructed to be mindful of position changes. 2. BENIGN HYPERTENSION(aka HTN) - ICD9: 401.1, ICD10: I10 - Controlled - Recommend home blood pressure monitoring, to bring results to next visit - Encouraged sodium restriction, DASH or Mediterranean diet - Recommend regular aerobic exercise - Discussed need for and benefit of weight loss. BMI 39.92 kg/(m^2) 3. Hyperlipidemia LDL goal <100 - ICD9: 272.4, ICD10: E78.5 - Control undetermined, due for labs - Get labs completed prior to next OV - Counseled on healthy diet and regular exercise 4. Leg swelling - ICD9: 729.81, ICD10: M79.89 - Continue with Lasix as prescribed. - Elevate the legs when possible 5. CKD (chronic kidney disease) stage 4, GFR 15-29 ml/min (HCC) - ICD9: 585.4, ICD10: N18.4 - Get labs completed - Keep scheduled appt with nephrology. 6. Female stress incontinence - ICD9: 625.6, ICD10: N39.3 - Stable, continue to take current medication. - Scheduled appointments with urology. 7. Chronic right-sided low back pain without sciatica - ICD9: 724.2, 338.29, ICD10: M54.50, G89.29 - Stable 8. Chronic knee pain, unspecified laterality - ICD9: 719.46, 338.29, ICD10: M25.569, G89.29 - Stable 9. Chronic shoulder pain, unspecified laterality - ICD9: 719.41, 338.29, ICD10: M25.519, G89.29 - Keep scheduled appointments with specialist 10. Hypothyroidism, acquired - ICD9: 244.9, ICD10: E03.9 - Instructed patient on importance of taking on an empty stomach either first thing in the morning or at bedtime. 11. Insomnia, unspecified type - ICD9: 780.52, ICD10: G47.00 - Stable, continue current medication. Follow-up in 3 months or sooner as needed. Discussed treatment plan and patient voices understanding. Patient's questions answered appropriately. Medications and potential side effects were discussed and patient voices understanding. Miryam Orozco APRN.CNP This note was partially generated using QWiPS voice recognition system. Note was reviewed for accuracy. There may be minor misspellings or grammar miscues with QWiPS voice recognition. documented in this encounterCleveland [facility]08-05-2024 NoteHNO ID: [id number] Author: MIRYAM OROZCO APRN.CNP Service: ? Author Type: Nurse Practitioner Type: Progress Notes Filed: 11/09/2023 12:07 Note Text: This is a 83 year old female who presents today with: Patient presents with: Follow Up HISTORY OF PRESENT ILLNESS: Mari Lopez is a 83 year old female. Patient presents with: Follow Up 3 month follow up Has recently had some lower BP readings at home. Refers that nephrology noted lower blood pressure reading in their office, recommend discussing with PCP team. Has noticed some mild dizziness with position changes. No chest pain Was hospitalized recently due to fecal impaction, [facility]. Doing well since discharge. Taking Miralax daily. History of incontinence, Following with Dr. Hernandez (urology). Taking Gemtesa 75 mg daily, which has been helpful. Cystoscopy normal. Has bathroom schedule to empty bladder. Chronic back pain: Following with pain management, Dr. Delgado, Had SPR device placement/removal. Feelng well. Knee Pain: Using Voltaren gel as needed. Left Shoulder: Has been having ongoing pain for about 5-6 months. Pain is constant. Has been working on at home exercises. refers that they are discussing possible surgery.Just had steroid injection. Discussion of using a stimulator in the future. LLE: Lasix 40 mg for Lasix daily. CKD4: Following with Nephrology, Dr. Gilmore. HTN: Taking Lisinopril/hctz 10/12.5 mg, Norvasc 5 mg and Toprol XL 50 mg daily. Hypothyroid: Taking levothyroxine 125 mcg daily. Cardiology: Following with Dr. Jackson. Has been working out 3 times weekly and watching diet. Sleep: Taking Ambien 10 mg at bedtime. PAST MEDICAL HISTORY: PAST MEDICAL HISTORY No date: Chronic airway obstruction, not elsewhere classified No date: Essential hypertension, benign 07/30/2011: Insomnia No date: Obesity, unspecified No date: Open wound of knee, leg (except thigh), and ankle, complicated No date: Other pulmonary embolism and infarction No date: Phlebitis and thrombophlebitis of femoral vein (deep) (superficial) (HCC) No date: Unspecified sleep apnea PAST SURGICAL HISTORY 04/2004,05/11: ANESTHESIA HERNIA REPAIR LOWER ABDOMEN NOS Comment: gortex put in on 05/11 then taken out06/08 1990: ARTHRP KNE CONDYLEANDPLATU MEDIALANDLAT COMPARTMENTS Comment: bilateral total knee s([place]) 10/24/04 : ARTHRP KNE CONDYLEANDPLATU MEDIALANDLAT COMPARTMENTS Comment: bilateral total knee revisions No date: DELIVERY ONLY Comment: , low cervical No date: CHOLECYSTECTOMY 11/17/2017: COLONOSCOPY FLX DX W/COLLJ SPEC WHEN PFRMD Comment: Colonoscopy 02/17/07: DEBRIDEMENT SUBCUTANEOUS TISSUE 20 SQ CM/< Comment: LEFT LEG [id number]: DEBRIDEMENT SUBCUTANEOUS TISSUE 20 SQ CM/< Comment: LEFT LEG [id number]: DEBRIDEMENT SUBCUTANEOUS TISSUE 20 SQ CM/< Comment: LEFT LEG [id number]: DEBRIDEMENT SUBCUTANEOUS TISSUE 20 SQ CM/< Comment: LEFT LEG [id number]: DEBRIDEMENT SUBCUTANEOUS TISSUE 20 SQ CM/< Comment: LEFT LEG 03/03/07: DEBRIDEMENT SUBCUTANEOUS TISSUE 20 SQ CM/< Comment: LEFT LEG 11/17/2017: ESOPHAGOGASTRODUODENOSCOPY TRANSORAL DIAGNOSTIC Comment: EGD 07/08: GASTRIC BYPASS No date: HEMORRHOIDECTOMY INTERNAL RUBBER BAND LIGATIONS 01/07/2018: HYSTEROSCOPY BX W/WO DANDC 04/10/2016: PAST SURGICAL HISTORY OF Comment: [place] and new knee cap put in right leg 04/25/2016: PAST SURGICAL HISTORY OF Comment: had to debri right leg wound with cellutitis infection ALLERGIES Bactrim [Sulfamethoxazole-Trimethoprim], Ibuprofen, Kefzol [Cefazolin Sodium], Peanut, and Sulfa (Sulfonamide Antibiotics) MEDICATIONS Current Outpatient Medications Medication Sig levothyroxine (LEVOXYL) 125 mcg tablet Take 1 tablet by mouth once daily. Take on empty stomach. For thyroid. zolpidem (AMBIEN) 10 mg Take 1 tablet by mouth at bedtime as needed for up to 90 days. gabapentin (NEURONTIN) 300 mg capsule Take 1 capsule by mouth three times a day for 180 days. Take one pill 3 times per day Do not start before September 28, 2023. cyclobenzaprine (FLEXERIL) 10 mg tablet Take 1 tablet by mouth three times a day as needed for muscle spasm. polyethylene glycol 3350 (MIRALAX) 17 gram/dose powder Take by mouth once daily. Dissolve dose in 4 - 8 ounces of liquid and take as directed. polyethylene glycol 3350 (MIRALAX) 17 gram/dose powder Take once daily lisinopril-hydroCHLOROthiazide (ZESTORETIC) 10-12.5 mg per tablet Take 1 tablet by mouth once daily. furosemide (LASIX) 40 mg tablet take 1 tablet by mouth every day omeprazole (PRILOSEC) 20 mg capsule Take 1 capsule by mouth once daily. GEMTESA 75 mg tablet Take 1 tablet by mouth every afternoon. aspirin, enteric coated (ASPIRIN, ENTERIC COATED) 81 mg EC tablet Take 81 mg by mouth once daily. amLODIPine (NORVASC) 5 mg tablet Take by mouth. tolterodine ER (DETROL LA) 4 mg 24 hr capsule TAKE 1 CAPSULE BY MOUTH ONCE DAILY acetaminophen (TYLENOL) 500 mg tablet Take 1,000 mg by mouth (more content not included)...[facility]07-24-2024 Telephone encounter Note* Telephone Encounter - Gonzalo Holland - 10/28/2023 9:57 AM EDT Procedure(s) being scheduled: RFA 1.Are you diabetic No 2. Are you on any blood thinners? No 3. Are you taking any aspirin? Yes. Please list the current medications being prescribed 81mg asp. 4. Are you currently taking any antibiotics? No 5. Do you have any allergies to latex? No 6. Do you have any allergies to seafood or shellfish? No 7. Do you have any allergies to x-ray dye? No 8. Did the physician instruct you to take any medication prior to your procedure? No 9. Does this procedure require a drop hammer pile driver operator? Yes If yes, has patient been notified that a drop hammer pile driver operator is needed and must be present at check in? yes 10. Were the pre-procedure instructions explained and provided to the patient? Yes 11. Do you have a pacemaker? No 12. Do you have an internal stimulator of any kind? No 13. Have you received the COVID-19 Vaccine? No. (Patient should not receive a procedure including steroids 14 days prior to their first dose of theCOVID vaccine. They should not receive any procedure containing steroids in the time frame between their 1st and 2nd doses of the COVID vaccine. They should not receive a procedure containing steroids 14 days after their 2nd dose of the COVID vaccine.) Gonzalo Holland [facility]07-24-2024 Miscellaneous Notes* Telephone Encounter - Gonzalo Holland - 10/28/2023 9:57 AM EDT Procedure(s) being scheduled: RFA 1.Are you diabetic No 2. Are you on any blood thinners? No 3. Are you taking any aspirin? Yes. Please list the current medications being prescribed 81mg asp. 4. Are you currently taking any antibiotics? No 5. Do you have any allergies to latex? No 6. Do you have any allergies to seafood or shellfish? No 7. Do you have any allergies to x-ray dye? No 8. Did the physician instruct you to take any medication prior to your procedure? No 9. Does this procedure require a drop hammer pile driver operator? Yes If yes, has patient been notified that a drop hammer pile driver operator is needed and must be present at check in? yes 10. Were the pre-procedure instructions explained and provided to the patient? Yes 11. Do you have a pacemaker? No 12. Do you have an internal stimulator of any kind? No 13. Have you received the COVID-19 Vaccine? No. (Patient should not receive a procedure including steroids 14 days prior to their first dose of theCOVID vaccine. They should not receive any procedure containing steroids in the time frame between their 1st and 2nd doses of the COVID vaccine. They should not receive a procedure containing steroids 14 days after their 2nd dose of the COVID vaccine.) Gonzalo Holland documented in this encounterC[facility]07-[facility]-2024 Telephone encounter Note * Telephone Encounter - Sofía Crowe - 10/27/2023 4:19 PM EDT ----- Message from Francine De Souza sent at 10/27/2023 4:09 PM EDT ----- Regarding: Spine & Pain / Roque Delgado) / Procedure / Injection Contact: Spine & Pain / Roque Delgado) / Procedure / Injection Patient has been identified by name and Date of (Y/N): y Patient: Mari Lopez Date of : 1940 Provider for this encounter: Dr Delgado Reason for the call/escalation: called to sched injection in R shoulder w/ Dr Delgado Person calling if other than patient: n/a Return call to if other than patient: n/a Best contact number: [phone] Thank you, Francine De Souza October 27, 2023 4:09 PM [facility]07-[facility]24 Miscellaneous Notes* Telephone Encounter - Sofía Crowe - 10/27/2023 4:19 PM EDT ----- Message from Francine De Souza sent at 10/27/2023 4:09 PM EDT ----- Regarding: Spine & Pain / Roque Delgado) / Procedure / Injection Contact: Spine & Pain / Roque Delgado) / Procedure / Injection Patient has been identified by name and Date of (Y/N): y Patient: Mari Lopez Date of : 1940 Provider for this encounter: Dr Delgado Reason for the call/escalation: called to sched injection in R shoulder w/ Dr Delgado Person calling if other than patient: n/a Return call to if other than patient: n/a Best contact number: [phone] Thank you, Francine De Souza October 27, 2023 4:09 PM documented in this encounterCleveland Clinic [facility]06-24-2024 Telephone encounter Note * Telephone Encounter - Lizy Capone MD - 09/28/2023 1:29 PM EDT OK to refill as ordered Lizy Capone MD [facility]06-24-2024 Miscellaneous Notes* Telephone Encounter - Lizy Capone MD - 09/28/2023 1:29 PM EDT OK to refill as ordered Lizy Capone MD * Telephone Encounter - Kayla Castro - 09/28/2023 12:52 PM EDT Patient has been identified by name and date of : Patient phones for refill(s): Requested Prescriptions Pending Prescriptions Disp Refills levothyroxine (LEVOXYL) 125 mcg tablet 90 tablet 3 Sig: Take 1 tablet by mouth once daily. Take on empty stomach. For thyroid. Date of last office visit in primary care: 07/22/2023 Date of next office visit in primary care: 01/28/2024 Please advise. Thank you. Kayla Castro. documented in this encounterCleveland [facility]06-24-2024 Telephone encounter Note * Telephone Encounter - Kayla Castro - 09/28/2023 12:52 PM EDT Patient has been identified by name and date of : Patient phones for refill(s): Requested Prescriptions Pending Prescriptions Disp Refills levothyroxine (LEVOXYL) 125 mcg tablet 90 tablet 3 Sig: Take 1 tablet by mouth once daily. Take on empty stomach. For thyroid. Date of last office visit in primary care: 07/22/2023 Date of next office visit in primary care: 01/28/2024 Please advise. Thank you. Kayla Castro. [facility]06-17-2024 Telephone encounter Note* Telephone Encounter - Miryam Orozco APRN.CNP - 09/21/2023 5:35 PM EDT The following approved medication requests have been transmitted electronically. Requested Prescriptions Signed Prescriptions Disp Refills zolpidem (AMBIEN) 10 mg 30 tablet 2 Sig: Take 1 tablet by mouth at bedtime as needed for up to 90 days. Authorizing Provider: MIRYAM OROZCO APRN.CNP PDMP website checked and validated. All prescriptions have been APPROPRIATELY filled. No suspiciousactivity was identified. 09/21/2023 by Miryam Orozco APRN.CNP [facility]06-17-2024 Miscellaneous Notes* Telephone Encounter - Miryam Orozco APRN.CNP - 09/21/2023 5:35 PM EDT The following approved medication requests have been transmitted electronically. Requested Prescriptions Signed Prescriptions Disp Refills zolpidem (AMBIEN) 10 mg 30 tablet 2 Sig: Take 1 tablet by mouth at bedtime as needed for up to 90 days. Authorizing Provider: MIRYAM OROZCO APRN.CNP PDM website checked and validated. All prescriptions have been APPROPRIATELY filled. No suspiciousactivity was identified. 09/21/2023 by Miryam Orozco APRN.CNP * Telephone Encounter - Quynh Sexton - 09/21/2023 11:10 AM EDT Patient has been identified by name and date of : Yes Patient phones for refill(s): Requested Prescriptions Pending Prescriptions Disp Refills zolpidem (AMBIEN) 10 mg 30 tablet 2 Sig: Take 1 tablet by mouth at bedtime as needed for up to 90 days. Date of last office visit in primary care: 07/22/2023 Date of next office visit in primary care: 01/28/2024 Please advise. Thank you. Quynh Sexton. documented in this encounterCleveland [facility]06-17-2024 Telephone encounter Note * Telephone Encounter - Quynh Sexton - 09/21/2023 11:10 AM EDT Patient has been identified by name and date of : Yes Patient phones for refill(s): Requested Prescriptions Pending Prescriptions Disp Refills zolpidem (AMBIEN) 10 mg 30 tablet 2 Sig: Take 1 tablet by mouth at bedtime as needed for up to 90 days. Date of last office visit in primary care: 07/22/2023 Date of next office visit in primary care: 01/28/2024 Please advise. Thank you. Quynh Sexton. [facility]05-23-2024 Telephone encounter Note* Telephone Encounter - Faith Crowecey - 08/27/2023 3:02 PM EDT ----- Message from Aaliyah Hoffman sent at 08/27/2023 2:59 PM EDT ----- Regarding: Spine/Wyqp-Voy-Ttmcseczy for Shoulder Patient: Mari Lopez Date of : 1940 Primary Care Provider: Lizy Capone MD Patient has been identified by name and Date of (Y/N): y Patient: Mari Lopez Date of : 1940 Provider for this encounter: Lizy Capone MD Reason for the call/escalation: Patient is wanting to do R shoulder injection with delgado Was Patient Referred to [facility]/Seek Emergency Treatment (Y/N): n/a Did Patient Agree (Y/N): n/a Was An Attempt Made To Transfer The Patient To The Office (Y/N): n/a Were You Able To Reach Someone At The Office (Y/N): n/a If Yes - Patient Was Transferred To (Caregivers Name): n/a If No - Which [facility] Leadership Portal Administrator Did You Speak With Regarding This Patient: n/a Was an appointment scheduled (Y/N): n Reason patient was requesting visit (RFV/signs and symptoms/diagnosis) : injection Person calling if other than patient: n/a Return call to if other than patient: n/a Best contact number: [phone] Thank you, Aaliyah Hoffman August 27, 2023 2:59 PM [facility]05-23-2024 Miscellaneous Notes* Telephone Encounter - Sofía Crowe - 08/27/2023 3:02 PM EDT ----- Message from Aaliyah Hoffman sent at 08/27/2023 2:59 PM EDT ----- Regarding: Spine/Tnpk-Hty-Agyacdtwe for Shoulder Patient: Mari Lopez Date of : 1940 Primary Care Provider: Lizy Capone MD Patient has been identified by name and Date of (Y/N): y Patient: Mari Lopez Date of : 1940 Provider for this encounter: Lizy Capone MD Reason for the call/escalation: Patient is wanting to do R shoulder injection with delgado Was Patient Referred to [facility]/Seek Emergency Treatment (Y/N): n/a Did Patient Agree (Y/N): n/a Was An Attempt Made To Transfer The Patient To The Office (Y/N): n/a Were You Able To Reach Someone At The Office (Y/N): n/a If Yes - Patient Was Transferred To (Caregivers Name): n/a If No - Which [facility] Leadership Portal Administrator Did You Speak With Regarding This Patient: n/a Was an appointment scheduled (Y/N): n Reason patient was requesting visit (RFV/signs and symptoms/diagnosis) : injection Person calling if other than patient: n/a Return call to if other than patient: n/a Best contact number: [phone] Thank you, Aaliyah Hoffman August 27, 2023 2:59 PM documented in this encounterC[facility] Instructions* Patient Instructions* Keyana Greenberg PA-C - 08/14/2023 9:49 AM EDT Activity as tolerated Use Ice and/or heat as tolerated as needed documented in this encounterCleveland Clinic [facility]-2024 NoteHNO ID: [id number] Author: KEYANA GREENBERG PA-C Service: ? Author Type: Physician Stamp Pad Maker Type: Progress Notes Filed: 08/14/2023 09:58 Note Text: AMBULATORY TELEPHONE VISIT Mari Lopez 1940 has consented to this audio only telephone encounter. Persons Present: patient Chief Complaint/Reason: L shoulder pain Interval History: Pain score 3/10. Patient underwent the following injection with Dr. Delgado on 07/15/23: Radiofrequency Ablation (Thermal RFA) - Suprascapular Nerve under fluoroscopic guidance LEFT-SIDED Patient reports 80% relief from the injection. Symptom relief lasted to date. During this time the patient was able to tolerate and participate in their ADL's with less pain and difficulty. Patient denies any adverse side effects such as nausea, vomiting, hives, fever, injection site redness/induration, headache, or new radicular symptoms. She is wondering about her right sided shoulder pain now. She would like to have the reagan done on the right side now. She has tried physical therapy and medications for this but she is still having significant shoulder pain on her right side. Review of Systems: Reviewed on today's date. Pertinent Positives: MSK - pain in the region being treated Neuro: No weakness or numbness in the region being treated Skin: Negative (No itching) Eyes: Negative (No blurred or double vision) Respiratory: Negative (No Cough, Dhjuhwdfn-od-orlclq, Dyspnea on exertion, wheezing) Cardiovascular: Negative (No Chest Pain, Tightness, Pressure, Palpitations) Gastrointestinal: Negative (No Abdominal pain, Nausea, Vomiting, Constipation, Diarrhea) Genitourinary: Negative (No dysuria) Hematologic: Negative (No bleeding, bruising) Endocrine: Negative (No hot/cold intolerance) Psychiatric: Negative (No change in mood/affect) Data Reviewed: None new to review Current Medications, Past Medical History, Past Surgical History, Family History AND Social History: Reviewed on today's date. Diagnoses: (M19.011, M19.012) Primary osteoarthritis of both shoulders (primary encounter diagnosis) (M47.816) Lumbar spondylosis (M79.18) Myofascial pain (R07.81) Pleurodynia Assessment and Plan: Continue current medications Requested Prescriptions Signed Prescriptions Disp Refills gabapentin (NEURONTIN) 300 mg capsule 270 capsule 1 Sig: Take 1 capsule by mouth three times a day for 180 days. Take one pill 3 times per day Do not start before September 28, 2023. cyclobenzaprine (FLEXERIL) 10 mg tablet 90 tablet 11 Sig: Take 1 tablet by mouth three times a day as needed for muscle spasm. Radiofrequency Ablation (Thermal RFA) - Suprascapular Nerve under fluoroscopic guidance RIGHT-SIDED ? Human Resource Manager Needed: Nerve Blocks - YES (Exception: Occipital Nerve Blocks - NO) ? Anticoagulants: None ? Relevant Allergies: None ? Additional Info: Diagnostic Block - Needs a virtual visit with an CAREY within 7 days (preferably within 2-3 days) of the injection (x2 if MBB) Follow-up: Make injection appointment first available Total Time Spent: 11 minutes Patient Instructions Activity as tolerated Use Ice and/or heat as tolerated as needed Keyana Greenberg PA-C ([place]) [facility] 08-14-2023 History of Present illness Narrative* Keyana Greenberg PA-C - 08/14/2023 9:46 AM EDT AMBULATORY TELEPHONE VISIT Mari Lopez 1940 has consented to this audio only telephone encounter. Persons Present: patient Chief Complaint/Reason: L shoulder pain Interval History: Pain score 3/10. Patient underwent the following injection with Dr. Delgado on 07/15/23: Radiofrequency Ablation (ThermalRFA) - Suprascapular Nerve under fluoroscopic guidance LEFT-SIDED Patient reports 80% relief from the injection. Symptom relief lasted to date. During this time the patient was able to tolerate and participate in their ADL's with less pain and difficulty. Patient denies any adverse side effects such as nausea, vomiting, hives, fever, injection site redness/induration, headache, or new radicular symptoms. She is wondering about her right sided shoulder pain now. She would like to have the reagan done on the right side now. She has tried physical therapy and medications for this but she is still having significant shoulder pain on her right side. Review of Systems: Reviewed on today's date. Pertinent Positives: MSK - pain in the region being treated Neuro: No weakness or numbness in the region being treated Skin: Negative (No itching) Eyes: Negative (No blurred or double vision) Respiratory: Negative (No Cough, Xhukstmhz-ex-snynbt, Dyspnea on exertion, wheezing) Cardiovascular: Negative (No Chest Pain, Tightness, Pressure, Palpitations) Gastrointestinal: Negative (No Abdominal pain, Nausea, Vomiting, Constipation, Diarrhea) Genitourinary: Negative (No dysuria) Hematologic: Negative (No bleeding, bruising) Endocrine: Negative (No hot/cold intolerance) Psychiatric: Negative (No change in mood/affect) Data Reviewed: None new to review Current Medications, Past Medical History, Past Surgical History, Family History & Social History: Reviewed on today's date. Diagnoses: (M19.011, M19.012) Primary osteoarthritis of both shoulders (primary encounter diagnosis) (M47.816) Lumbar spondylosis (M79.18) Myofascial pain (R07.81) Pleurodynia Assessment and Plan: Continue current medications Requested Prescriptions Signed Prescriptions Disp Refills gabapentin (NEURONTIN) 300 mg capsule 270 capsule 1 Sig: Take 1 capsule by mouth three times a day for 180 days. Take one pill 3 times per day Do not start before September 28, 2023. cyclobenzaprine (FLEXERIL) 10 mg tablet 90 tablet 11 Sig: Take 1 tablet by mouth three times a day as needed for muscle spasm. Radiofrequency Ablation (Thermal RFA) - Suprascapular Nerve under fluoroscopic guidance RIGHT-SIDED Human Resource Manager Needed: Nerve Blocks - YES (Exception: Occipital Nerve Blocks - NO) Anticoagulants: None Relevant Allergies: None Additional Info: Diagnostic Block - Needs a virtual visit with an CAREY within 7 days (preferably within 2-3 days) of the injection (x2 if MBB) Follow-up: Make injection appointment first available Total Time Spent: 11 minutes Patient Instructions Activity as tolerated Use Ice and/or heat as tolerated as needed Keyana Greenberg PA-C ([place]) Pain [facility] documented in this encounterC[facility] Instructions* Patient Instructions* Miryam Orozco APRN.CNP - 07/22/2023 1:01 PM EDT Get repeat lab in 3 months to check kidney function Get repeat fasting labs in 6 months prior to next office visit. Continue to take all medication as prescribed Keep scheduled appointments with specialists. Follow up in 6 months or sooner as needed. documented in this encounterCleveland [facility]04-[facility]24 History of Present illness Narrative* Miryam Orozco APRN.CNP - 07/22/2023 12:40 PM EDT This is a 83 year old female who presents today with: Patient presents with: Follow Up: 3 month follow up HISTORY OF PRESENT ILLNESS: Mari Lopez is a 83 year old female. Patient presents with: Follow Up: 3 month follow up 3 month follow up Was hospitalized recently due to fecal impaction, [facility]. Doing well since discharge. Taking Miralax daily. History of incontinence, Following with Dr. Hernandez (urology). Taking Gemtesa 75 mg daily, which has been helpful. Cystoscopy normal. Has bathroom schedule to empty bladder. Chronic back pain: Following with pain management, Dr. Delgado, Had SPR device placement/removal. Feelng well. Knee Pain: Using Voltaren gel as needed. Left Shoulder: Has been having ongoing pain for about 5-6 months. Pain is constant. Has been working on at home exercises. refers that they are discussing possible surgery.Just had steroid injection.Discussion of using a stimulator in the future. LLE: Lasix 40 mg for Lasix daily. CKD4: Following with Nephrology, Dr. Acosta [facility], switched to Dr. Gilmore. HTN: Taking Lisinopril/hctz 10/12.5 mg, Norvasc 5 mg and Toprol XL 50 mg daily. Denies chest pain, palpitations, or dizziness. Hypothyroid: Taking levothyroxine 125 mcg daily. Cardiology: Following with Dr. Jackson. Has been working out 3 times weekly and watching diet. Sleep: Taking Ambien 10 mg at bedtime. Vaccines: would like to covid booster once she feels better. FAX LAB RESULTS TO DR. JACKSON AND SADE PAST MEDICAL HISTORY: PAST MEDICAL HISTORY Diagnosis [...] CONDYLE&PLATU MEDIAL&LAT COMPARTMENTS 1990 bilateral total knee s([place]) ARTHRP KNE CONDYLE&PLATU MEDIAL&LAT COMPARTMENTS 10/24/04 bilateral total knee revisions DELIVERY ONLY , low cervical CHOLECYSTECTOMY COLONOSCOPY FLX DX W/COLLJ SPEC WHEN PFRMD 11/17/2017 Colonoscopy DEBRIDEMENT SUBCUTANEOUS TISSUE 20 SQ CM/< 02/17/07 LEFT LEG DEBRIDEMENT SUBCUTANEOUS TISSUE 20 SQ CM/< [id number] LEFT LEG DEBRIDEMENT SUBCUTANEOUS TISSUE 20 SQ CM/< [id number] LEFT LEG DEBRIDEMENT SUBCUTANEOUS TISSUE 20 SQ CM/< [id number] LEFT LEG DEBRIDEMENT SUBCUTANEOUS TISSUE 20 SQ CM/< [id number] LEFT LEG DEBRIDEMENT SUBCUTANEOUS TISSUE 20 SQ CM/< 03/03/07 LEFT LEG ESOPHAGOGASTRODUODENOSCOPY TRANSORAL DIAGNOSTIC 11/17/2017 EGD GASTRIC BYPASS 07/08 HEMORRHOIDECTOMY INTERNAL RUBBER BAND LIGATIONS HYSTEROSCOPY BX W/WO D&C 01/07/2018 PAST SURGICAL HISTORY OF 04/10/2016 [place] and new knee cap put in right leg PAST SURGICAL HISTORY OF 04/25/2016 had to debri right leg wound with cellutitis infection ALLERGIES Bactrim [Sulfamethoxazole-Trimethoprim], Ibuprofen, Kefzol [Cefazolin Sodium], Peanut, and Sulfa (Sulfonamide Antibiotics) MEDICATIONS Current Outpatient Medications Medication Sig zolpidem (AMBIEN) 10 mg Take 1 tablet by mouth at bedtime as needed for up to 90 days. furosemide (LASIX) 40 mg tablet take 1 tablet by mouth every day cyclobenzaprine (FLEXERIL) 10 mg tablet take 1 tablet by mouth three times a day as needed for muscle spasm omeprazole (PRILOSEC) 20 mg capsule Take 1 capsule by mouth once daily. gabapentin (NEURONTIN) 300 mg capsule Take 1 capsule by mouth three times a day for 180 days. Take one pill 3 times per day GEMTESA 75 mg tablet Take 1 tablet by mouth every afternoon. aspirin, enteric coated (ASPIRIN, ENTERIC COATED) 81 [...] mg 24 hr tablet Take by mouth. Wkxjtrxqitd-Ecxpftzxy-Nck C-Mn (GLUCOSAMINE CHONDROITIN MAXSTR) 500-400 mg cap Take 1 capsule by mouth three times daily. COMPOUNDED PRESCRIPTION Stair lift DAILY-LUISITO tablet TAKE 1 TABLET BY MOUTH ONCE DAILY. laobcad-fgghdmcqe-cegushm D3 (CALCIUM 500+D) 500 mg(1,250mg) -200 unit [...] depression, anxiety, or suicidal ideation. EXAM: BP 114/70 Pulse 78 Resp 16 Wt 101.2 kg (223 lb) SpO2 97% BMI 40.79 kg/m PHYSICAL EXAM: General Appearance: Well appearing, alert, in no acute distress, well-hydrated, well nourished. Skin: Skin color, texture, turgor normal, no suspicious rashes or lesions. Head: Normocephalic, no masses, lesions, tenderness or abnormalities. Eyes: Anicteric sclera. Extraocular movements are intact. Lungs: Lungs clear to auscultation. No wheezing, rhonchi, rales. Heart: RRR without murmur, gallop, or rubs. No ectopy. Extremities: No deformities, edema, skin discoloration, clubbing or cyanosis. Good capillary refill. Musculoskeletal: No joint swelling, deformity, or tenderness. Peripheral Pulses: Normal, Capillary refill <2secs, strong peripheral pulses, Pulses palpable. Neurologic: Gait normal. Sensation grossly intact. Latest Ref Rng 07/16/2023 Protein, Total 6.3 - 8.0 g/dL 7.0 Albumin 3.9 - 4.9 g/dL 3.8 (L) Calcium 8.5 - 10.2 mg/dL 9.1 Bilirubin, Total 0.2 - 1.3 mg/dL 0.3 Alkaline Phosphatase 34 - 123 U/L 76 AST 13 - 35 U/L 22 ALT 7 - 38 U/L 15 Glucose 74 - 99 mg/dL 87 BUN 7 - 21 mg/dL 69 (H) Creatinine 0.58 - 0.96 mg/dL 1.55 (H) Sodium 136 - 144 mmol/L 142 Potassium 3.7 - 5.1 mmol/L 5.2 (H) Chloride 97 - 105 mmol/L 110 (H) CO2 22 - 30 mmol/L 19 (L) Anion Gap 9 - 18 mmol/L 13 eGFR >=60 mL/min/1.73m 34 (L) Cholesterol, Total <200 mg/dL 172 Triglyceride <150 mg/dL 74 HDL Cholesterol >39 mg/dL 62 Non HDL Cholesterol <130 mg/dL 110 Fasting Time hrs 12 VLDL Cholesterol <30 mg/dL 15 TC:HDL Ratio <5.10 2.77 LDL Cholesterol <100 mg/dL 95 LDL:HDL Ratio <2.54 1.53 TSH 0.270 - 4.200 mIU/L 3.690 Legend: (L) Low (H) High ASSESSMENT/PLAN: 1. Female stress incontinence - ICD9: 625.6, ICD10: N39.3 (primary diagnosis) - Stable, continue to take current medication. - Keep scheduled appointments with urologist. 2. Chronic right-sided low back pain without sciatica - ICD9: 724.2, 338.29, ICD10: M54.50, G89.29 - Stable, keep scheduled appointments with pain management. 3. Chronic knee pain, unspecified laterality - ICD9: 719.46, 338.29, ICD10: M25.569, G89.29 - Stable, continue with Voltaren as needed. 4. Chronic shoulder pain, unspecified laterality - ICD9: 719.41, 338.29, ICD10: M25.519, G89.29 - Stable, keep scheduled appointments with pain management. 5. Leg swelling - ICD9: 729.81, ICD10: M79.89 - Stable, get repeat labs in 6 months. - COMPREHENSIVE METABOLIC PANEL 6. CKD (chronic kidney disease) stage 4, GFR 15-29 ml/min (HCC) - ICD9: 585.4, ICD10: N18.4 - eGFR: 34 Stable - Counseled on avoiding NSAIDs, adequate hydration - Counseled on low sodium diet - Follow up with kidney medicine - Get repeat labs in 3 months and then in 6 months. - Lab results will be faxed to health and fitness instructor. - COMPREHENSIVE METABOLIC PANEL - COMPREHENSIVE METABOLIC PANEL 7. BENIGN HYPERTENSION(aka HTN) - ICD9: 401.1, ICD10: I10 - Controlled - Continue current medications - Recommend home blood pressure monitoring, to bring results to next visit - Encouraged sodium restriction, DASH or Mediterranean diet - Recommend regular aerobic exercise - Discussed need for and benefit of weight loss. BMI 40.79 kg/(m^2) - LISINOPRIL 10 MG-HYDROCHLOROTHIAZIDE 12.5 MG TABLET 8. Hypothyroidism, acquired - ICD9: 244.9, ICD10: E03.9 - Instructed patient on importance of taking on an empty stomach either first thing in the morning or at bedtime. - THYROID STIMULATING HORMONE 9. Hyperlipidemia LDL goal <100 - ICD9: 272.4, ICD10: E78.5 - Control undetermined, due for labs - Continue current medications - Counseled on healthy diet and regular exercise - LIPID PANEL BASIC 10. Insomnia, unspecified type - ICD9: 780.52, ICD10: G47.00 - Stable, continue with current medication. 11. Chronic constipation - ICD9: 564.00, ICD10: K59.09 - Stable, continue with MiraLAX daily. - POLYETHYLENE GLYCOL 3350 17 GRAM/DOSE ORAL POWDER - COMPREHENSIVE METABOLIC PANEL Follow-up in 6 months or sooner pending test results. Discussed treatment plan and patient voices understanding. Patient's questions answered appropriately. Medications and potential side effects were discussed and patient voices understanding. Miryam Orozco APRN.DIGITAL DATA ANALYST This note was partially generated using QWiPS voice recognition system. Note was reviewed for accuracy. There may be minor misspellings or grammar miscues with QWiPS voice recognition. documented in this encounterCleveland Clinic [facility]04-[facility] Nurse Note* Sheila Carlson LPN - 07/15/2023 9:28 AM EDT Order has been placed in the patient's [...] of breath, dizziness, or headache. Pain level 3/10. Vital signs within normal limits. Patient denied needing walked out by clinical staff and denied needing a wheelchair. Patient given discharge instructions and sent to transportation via ambulatory method. Patient left in good condition. * Octavio Robbins LPN - 07/15/2023 8:40 AM EDT Procedure to be performed: LEFT SUPRASCAPULAR NERVE RADIOFREQUENCY ABLATION Patient was wheeled on stretcher from pre op bay to procedure room and assisted onto the procedure tablePatient s procedure was performed in an [facility] Procedure room. Pause completed at [...] obtain another set of vitals. Time Out: 905 Confirmed patient name, date of , procedure site, laterality, and allergies Procedure Start: 908 Procedure End: 925 * Amada Velasco LPN - 07/15/2023 8:36 AM EDT Human Resource Manager's Name: javed sawyer Are you on a blood thinner: n If yes, is a hold required: n Last dose of blood thinner: n INR Result today: n Do you require a Lovenox bridge:n Are you a diabetic:n Are you/or could you be : n Are you taking Xanax for the procedure: y Are you currently on a steroid? n Are you currently on an antibiotic: n Have you had a COVID-19 vaccine in the last 14 days Or are you scheduled to receive one? n documented in this encounterCleveland Clinic [facility]04-10-2024 NoteHNO ID: [id number] Author: ROQUE DELGADO MD Service: ? Author Type: Physician Type: Progress Notes Filed: 07/15/2023 09:52 Note Text: [facility] Date: 07/15/2023 Patient name: Mari Lopez Physician performing procedure: Roque Delgado M.D., M.B.A. Diagnosis: (M19.011, M19.012) Primary osteoarthritis of both shoulders (primary encounter diagnosis) Procedure: Radiofrequency Ablation (Thermal RFA) - Suprascapular Nerve under fluoroscopic guidance LEFT-SIDED Injectate: A total of 3 ml volume was injected The injectate consisted of: 1 ml of Depo-Medrol (40mg/ml), The remainder consisting of 0.75% Bupivacaine Comments: Strong motor and sensory stim. Improvement after today's procedure: as per nursing report HPI: Mari Lopez is an 83 year old FEMALE who presents today, in pain, for the procedure noted above. Review of Systems: Pertinent Positives: MSK: pain in the region being treated Neuro: weakness or numbness in the region being treated (unless otherwise noted) Skin: Negative (No itching) Eyes: Negative (No blurred or double vision) Respiratory: Negative (No Cough, Upclmmmjv-zs-prselm, Dyspnea on exertion, wheezing) Cardiovascular: Negative (No [...] CONDYLEANDPLATU MEDIALANDLAT COMPARTMENTS 1990 bilateral total knee s([place]) ARTHRP KNE CONDYLEANDPLATU MEDIALANDLAT COMPARTMENTS 10/24/04 bilateral total knee revisions DELIVERY ONLY , low cervical CHOLECYSTECTOMY COLONOSCOPY FLX DX W/COLLJ SPEC WHEN PFRMD 11/17/2017 Colonoscopy DEBRIDEMENT SUBCUTANEOUS TISSUE 20 SQ CM/< 02/17/07 LEFT LEG DEBRIDEMENT SUBCUTANEOUS TISSUE 20 SQ CM/< [id number] LEFT LEG DEBRIDEMENT SUBCUTANEOUS TISSUE 20 SQ CM/< [id number] LEFT LEG DEBRIDEMENT SUBCUTANEOUS TISSUE 20 SQ CM/< [id number] LEFT LEG DEBRIDEMENT SUBCUTANEOUS TISSUE 20 SQ CM/< [id number] LEFT LEG DEBRIDEMENT SUBCUTANEOUS TISSUE 20 SQ CM/< 03/03/07 LEFT LEG ESOPHAGOGASTRODUODENOSCOPY TRANSORAL DIAGNOSTIC 11/17/2017 EGD GASTRIC BYPASS 07/08 HEMORRHOIDECTOMY INTERNAL RUBBER BAND LIGATIONS HYSTEROSCOPY BX W/WO DANDC 01/07/2018 PAST SURGICAL HISTORY OF 04/10/2016 [place] and new knee cap put in right [...] as needed for up to 90 days. furosemide (LASIX) 40 mg tablet take 1 tablet by mouth every day cyclobenzaprine (FLEXERIL) 10 mg tablet take 1 tablet by mouth three times a day as needed for muscle spasm omeprazole (PRILOSEC) 20 mg capsule Take 1 capsule by mouth once daily. GEMTESA 75 mg tablet Take 1 tablet by mouth every afternoon. aspirin, enteric coated (ASPIRIN, ENTERIC COATED) 81 [...] mg 24 hr tablet Take by mouth. Afyoktsvyxe-Ssczzshgc-Ldc C-Mn (GLUCOSAMINE CHONDROITIN MAXSTR) 500-400 mg cap Take 1 capsule by mouth three times daily. COMPOUNDED PRESCRIPTI (more content not included)...[facility] 07-15-2023 History of Present illness Narrative* Roque Delgado MD - 07/15/2023 8:49 AM EDT [facility] Date: 07/15/2023 Patient name: Mari Lopez Physician performing procedure: Roque Delgado M.D., M.B.A. Diagnosis: (M19.011, M19.012) Primary osteoarthritis of both shoulders (primary encounter diagnosis) Procedure: Radiofrequency Ablation (Thermal RFA) - Suprascapular Nerve under fluoroscopic guidance LEFT-SIDED Injectate: A total of 3 ml volume was injected The injectate consisted of: 1 ml of Depo-Medrol (40mg/ml), The remainder consisting of 0.75% Bupivacaine Comments: Strong motor and sensory stim. Improvement after today's procedure: as per nursing report HPI: Mari Lopez is an 83 year old FEMALE who presents today, in pain, for the procedure noted above. Review of Systems: Pertinent Positives: MSK: pain in the region being treated Neuro: weakness or numbness in the region being treated (unless otherwise noted) Skin: Negative (No itching) Eyes: Negative (No blurred or double vision) Respiratory: Negative (No Cough, Byuxiagph-on-vydobw, Dyspnea on exertion, wheezing) Cardiovascular: Negative (No [...] and thrombophlebitis of femoral vein (deep) (superficial) ([facility]) Unspecified sleep apnea PAST SURGICAL HISTORY Procedure Laterality Date ANESTHESIA HERNIA REPAIR LOWER ABDOMEN NOS 04/2004,05/11 gortex put in on 05/11 then taken out06/08 ARTHRP KNE CONDYLE&PLATU MEDIAL&LAT COMPARTMENTS 1990 bilateral total knee s([place]) ARTHRP KNE CONDYLE&PLATU MEDIAL&LAT COMPARTMENTS 10/24/04 bilateral total knee revisions DELIVERY ONLY , low cervical CHOLECYSTECTOMY COLONOSCOPY FLX DX W/COLLJ SPEC WHEN PFRMD 11/17/2017 Colonoscopy DEBRIDEMENT SUBCUTANEOUS TISSUE 20 SQ CM/< 02/17/07 LEFT LEG DEBRIDEMENT SUBCUTANEOUS TISSUE 20 SQ CM/< [id number] LEFT LEG DEBRIDEMENT SUBCUTANEOUS TISSUE 20 SQ CM/< [id number] LEFT LEG DEBRIDEMENT SUBCUTANEOUS TISSUE 20 SQ CM/< [id number] LEFT LEG DEBRIDEMENT SUBCUTANEOUS TISSUE 20 SQ CM/< [id number] LEFT LEG DEBRIDEMENT SUBCUTANEOUS TISSUE 20 SQ CM/< 03/03/07 LEFT LEG ESOPHAGOGASTRODUODENOSCOPY TRANSORAL DIAGNOSTIC 11/17/2017 EGD GASTRIC BYPASS 07/08 HEMORRHOIDECTOMY INTERNAL RUBBER BAND LIGATIONS HYSTEROSCOPY BX W/WO D&C 01/07/2018 PAST SURGICAL HISTORY OF 04/10/2016 [place] and new knee cap put in right [...] as needed for up to 90 days. furosemide (LASIX) 40 mg tablet take 1 tablet by mouth every day cyclobenzaprine (FLEXERIL) 10 mg tablet take 1 tablet by mouth three times a day as needed for muscle spasm omeprazole (PRILOSEC) 20 mg capsule Take 1 capsule by mouth once daily. GEMTESA 75 mg tablet Take 1 tablet by mouth every afternoon. aspirin, enteric coated (ASPIRIN, ENTERIC COATED) 81 [...] mg 24 hr tablet Take by mouth. Oerodvprico-Rjsgjvyoe-Fqv C-Mn (GLUCOSAMINE CHONDROITIN MAXSTR) 500-400 mg cap Take 1 capsule by mouth three times daily. COMPOUNDED PRESCRIPTION Stair lift DAILY-LUISITO tablet TAKE 1 TABLET BY MOUTH ONCE DAILY. isfjkec-gwdhkjpmo-vcuuuob D3 (CALCIUM 500+D) 500 mg(1,250mg) -200 unit [...] CENTRUM PERFORMANCE TAB Take one(1) tablet daily. gabapentin (NEURONTIN) 300 mg capsule Take 1 capsule by mouth three times a day for 180 days. Take one pill 3 times per day No current facility-administered medications on file prior [...] appropriate Assessment and Plan: As noted above Jasper protocol documentation / Pre-Procedure Checklist: Consent: Obtained [...] written consent to proceed and was transported intothe procedure room Surgical/Procedure pause or Time Out : Time Out was led by the physician in the procedure room, with the patient and all staff present andparticipating The following information was verified during the Time Out process: Patient name, patient date of , procedure site (marked), laterality, anticoagulants and allergies Procedure: The patient was prepped and draped in a sterile fashion in the supine position after informed consent was signed and all patient questions were answered including the risks, benefits, alternative treatment options, and prognosis. The risks are as mentioned above. After preliminary films were obtained and after skin preparation, a 25 gauge needle was used to anesthetize the skin with 3-5 cc of 1% Lidocaine. The outer cannula of a 20-gauge RFA needle was inserted with fluoroscopic guidance to contact bone at the base of the suprascapular notch. Needle position was then confirmed in multiple views. Test stimulation was performed to ensure that there was no inadvertent peripheral nerve stimulation. The soft tissues were then infiltrated with 1-2 ccs. of buffered 1% Lidocaine without Epinephrine. Subsequently, a percutaneous neurotomy was carried out for 90 seconds at 80 degrees Celsius. The procedure was repeated, one additional time for a total of two lesions per nerve. Appropriate radiographs were obtained to verify the probe placement during the neurotomy. After ablation and prior to needle removal, the medication noted above was then injected ateach site. The needle was then removed. Appropriate radiographs were obtained with results as [...] instructions was offered to the patient. Roque Delgado MD [facility] * Amada Velasco LPN - 07/15/2023 8:39 AM EDT Review of Systems Constitutional: Negative for activity change, chills, fever and unexpected weight change. Gastrointestinal: Negative for bowel retention or incontinence Genitourinary: Negative for difficulty urinating. Negative for bladder retention or incontinence Musculoskeletal: Positive for arthralgias, gait problem, joint swelling and myalgias. Negative for back pain, neck pain and neck stiffness. Neurological: Negative for weakness, numbness and headaches. Psychiatric/Behavioral: Positive for sleep disturbance. Negative for dysphoric mood and suicidal ideas. The patient is not nervous/anxious. documented in this encounterC[facility]04-10-2024 Instructions* Patient Instructions* Sheila Carlson LPN - 07/15/2023 8:44 AM EDT PROCEDURE DISCHARGE INSTRUCTIONS 07/15/2023 Mari Lopez 1940 Physician: Roque Delgado MD Procedure: LEFT SUPRASCAPULAR NERVE RADIOFREQUENCY ABLATION Post Procedure Instructions: If sedation given, no driving the day of the procedure., Rest the day of the procedure., You may resume normal activities the day after the procedure, as tolerated., Avoid movements that may aggravate pain., Apply cold compresses to injection site if needed., If medically acceptable, take over the counter anti- inflammatories such as ibuprofen or Aleve if needed for post procedure discomfort., No hot baths, hot tubs or hot compresses for 24 hours., and Your pain should subside in the next 4-6 weeks. If you have any of the following [...] emergency care and why. documented in this encounterCleveland [facility]04-10-2024 NoteHNO ID: [id number] Author: AMADA VELASCO LPN Service: ? Author Type: LICENSED NURSE Type: Progress Notes Filed: 07/15/2023 09:52 Note Text: Review of Systems Constitutional: Negative for activity change, chills, fever and unexpected weight change. Gastrointestinal: Negative for bowel retention or incontinence Genitourinary: Negative for difficulty urinating. Negative for bladder retention or incontinence Musculoskeletal: Positive for arthralgias, gait problem, joint swelling and myalgias. Negative for back pain, neck pain and neck stiffness. Neurological: Negative for weakness, numbness and headaches. Psychiatric/Behavioral: Positive for sleep disturbance. Negative for dysphoric mood and suicidal ideas. The patient is not nervous/anxious.[facility]03-25-2024 Miscellaneous Notes* Telephone Encounter - Lizy Capone MD - 06/29/2023 3:29 PM EDT OK to refill as ordered Lizy Capone MD * Telephone Encounter - Alfred Casanova LPN - 06/29/2023 2:25 PM EDT ENDY 04/15/23 NOV 07/22/23 * Telephone Encounter - Shruthi Mathis - 06/29/2023 2:12 PM EDT Patient has been identified by name and date of : Yes Requested Prescriptions Pending Prescriptions Disp Refills zolpidem (AMBIEN) 10 mg 30 tablet 2 Sig: Take 1 tablet by mouth at bedtime as needed for up to 90 days. RX INSTRUCTIONS: Patient aware RX will be sent to pharmacy. No need to nofity patient. Controlled medication - must be call in. Shruthi Cole documented in this encounterCleveland [facility]03-18-2024 Miscellaneous Notes* Telephone Encounter - Mulugeta Jennings APRN.CNP - 06/22/2023 10:16 AM EDT The following approved medication requests have been transmitted electronically. Requested Prescriptions Pending Prescriptions Disp Refills furosemide (LASIX) 40 mg tablet [Pharmacy Med Name: FUROSEMIDE 40 MG TABLET] 90 tablet 1 Sig: take 1 tablet by mouth every day Mulugeta Jennings APRN.CJ * Telephone Encounter - Alferd Casanova LPN - 06/22/2023 10:04 AM EDT Patient has been identified by name and date of : Yes Patient phones for refill(s): Requested Prescriptions Pending Prescriptions Disp Refills furosemide (LASIX) 40 mg tablet [Pharmacy Med Name: FUROSEMIDE 40 MG TABLET] 90 tablet 1 Sig: take 1 tablet by mouth every day Date of last office visit in primary care: 04/15/2023 Date of next office visit in primary care: 07/22/2023 Please advise. Thank you. Alfred Casanova LPN. documented in this encounterC[facility]03-12-2024 Miscellaneous Notes* Telephone Encounter - Samuel Maza MA - 06/16/2023 2:44 PM EDT Patient notified. Samuel Maza MA * Telephone Encounter - Roque Delgado MD - 06/16/2023 2:30 PM EDT Refill for Flexeril approved and sent to patient's preferred pharmacy. Roque Delgado III, MD, DENNIS documented in this encounterCleveland Clinic [facility]03-05-2024 Discharge summary Author Ralph Haynes [facility] June 09, 2023 8:24am Note Date/Time June 09, 2023 8:20 am [facility] Medical Records Department [address] [place] [address] Discharge Summary 06/09/23 0820 MR#: [id number] Acct: [id number] Name: MARI LOPEZ Rep #:[id number] : 1940 82 From: Ralph Haynes MD PCP: BROOKLYN Aguillon Status:ADM I N [id number] Date of Admission: 06/08/23 Date of Discharge: 06/09/23 Primary Care Physician: BROOKLYN Aguillon Reason For Visit: SEVERE CONSTIPATION AND JOSE Diagnosis Discharge Diagnosis (1) Constipation: Status: Acute Code(s): K59.00 - Constipation, unspecified Qualifiers: Constipation type: chronic idiopathic constipation Qualified Code(s): K59.04 - Chronic idiopathic constipation (2) Fecal impaction in rectum: Status: Acute Code(s): K56.41 - Fecal impaction (3) Acute kidney injury superimposed on chronic kidney disease: Status: Chronic Code(s): N17.9 - Acute kidney failure, unspecified; N18.9 - Chronic kidney disease, unspecified (4) Dyspnea on minimal exertion: Status: Acute Code(s): R06.00 - Dyspnea, unspecified Plan Patient is an 82-year-old lady admitted with abdominal pain CT of the abdomen and pelvis reviewed constipation with fecal impaction and moderate dilatation ofthe entire colon. Admitted to regular nursing floor for further management 1. Abdominal pain ? Secondary to constipation CT scan of the abdomen and pelvis revealed evidence of constipation with possible fecal impaction and moderate dilatation of the entire colon patient admitted to the regular nursing floor for symptom management 2. Acute kidney injury ? Patient is on IV fluid with subsequent monitoring of electrolytes ordered 3. Metabolic acidosis ? Secondary to JOSE do expect improvement with rehydration 4. Anemia - Secondary to chronic disorder monitoring H&H and transfuse if patient becomes symptomatic or hemoglobin falls below 7 5. Hypothyroidism - Patient is on levothyroxine home dose continued 6. COPD ? Currently not in exacerbation aerosol treatment as needed 7. Chronic congestive heart failure with preserved ejection fraction -diuretic therapy held in view of patient JOSE 8. Hypertension - Blood pressure controlled, home medications except for lisinopril continued with dose adjustment as needed 9. 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 GERD ? On PPI 11. Generalized osteoarthritis ? With previous history of bilateral total knee replacement 11. Chronic back pain ? With spinal cord stimulator Medications at Discharge Home Medications omeprazole 20 mg capsule,delayed release 20 mg PO DAILY 11/13/17 zinc 50 mg tablet 50 mg PO DAILY 02/09/18 glucosamine 500 cs-qjxxffvkr-sajgilgb comp 400 mg-D3 667 unit-C-Mn cap 1 cap PO TID 10/17/19 hydrocortisone-pramoxine 2.5 %-1 % (4g) rectal cream 1 applic MT BID 10/17/19 zolpidem 10 mg tablet 10 mg PO QHS SLEEP 01/09/21 calcium acetate(phosphat bind) 667 mg capsule 667 mg PO TID 07/25/21 calcium carbonate 600 mg-vitamin D3 10 mcg (400 unit) capsule 1 cap PO BID 07/25/21 cholecalciferol (vitamin D3) 25 mcg (1,000 unit) capsule 50 mcg PO DAILY 07/25/21 cyclobenzaprine 10 mg tablet 10 mg PO BID PRN Muscle Spasm 07/25/21 levonorgestrel 21 mcg/24 hours (8 yrs) 52 mg intrauterine device (Mirena) 1 mcg intrauterine ONCE 07/25/21 levothyroxine 125 mcg tablet 125 mcg PO DAILY 07/25/21 vitamin B complex 1 cap PO DAILY 07/25/21 vitamin E mixed 400 unit capsule 400 unit PO DAILY 07/25/21 ascorbate calcium (vitamin C) 500 mg tablet 500 mg PO DAILY 12/19/21 pyridoxine (vitamin B6) 100 mg tablet (Vitamin B-6) 100 mg PO DAILY 12/19/21 acetaminophen 500 mg tablet 1,000 mg PO BID 06/27/22 gabapentin 300 mg capsule 300 mg PO TID 06/27/22 magnesium oxide 200 mg PO DAILY 06/27/22 multivitamin 1 tab PO DAILY 06/27/22 nitroglycerin 0.4 mg sublingual tablet 0.4 mg sublingual Q5M PRN chest pain #30 tabs 06/27/22 aspirin 81 mg tablet,delayed release (Adult Aspirin Regimen) 81 mg PO DAILY 07/11/22 furosemide 20 mg tablet (Lasix) 20 mg PO DAILY #90 tabs 10/03/22 lisinopril 10 mg tablet 10 mg PO DAILY 06/07/23 vibegron 75 mg tablet (Gemtesa) 75 mg PO DAILY 06/07/23 polyethylene glycol 3350 17 gram oral powder packet 17 g PO DAILY #30 ea 06/09/23 Hospital Course Summary of Care Provided Minutes Spent on Discharge: 35 Physical Exam Narrative GENERAL: cooperative HEENT: Atraumatic; normocephalic EYES; Anicteric, Normal Conjunctiva NECK; supple, normal thyroid, RESPIRATORY: Diminished to auscultation CARDIOVASCULAR: Regular S1 S2, GI: Distended, tympanitic to percussion : No Renal angle tenderness; EXTREMITIES: edema, no clubbing, MUSCULOSKELETAL: no muscle wasting NEURO: Awake; no lateralizing signs. SKIN: No Rash PSYCH; Flat affect Weight / BMI Weight Weight: 98.7 kg Body Mass Index (BMI) 40.0 ABG / Lab / Microbiology Data 06/09/23 06:05 06/08/23 05:55 Laboratory: Laboratory Results - last 24 hr 06/09/23 06:05: WBC 4.6, RBC 3.11 L, Hgb 10.2 L, Hct 33.6 L, MCV 108.0 H, MCH 32.8 H, MCHC 30.4 L, RDW Std Deviation 54.6 H, RDW Coeff of Parris 13.7, Plt Count 188, MPV 12.6 H, Immature Gran % (Auto) 0.200, Neut % (Auto) 42.7 L, Lymph % (Auto) 39.0, Powell % (Auto) 8.9, Eos % (Auto) 8.5 H, Baso % (Auto) 0.7, Absolute Neuts (auto) 2.0, Absolute Lymphs (auto) 1.80, Nucleated RBC % 0 D/C Instructions Discharge Diet: No restrictions Discharge Activity: Return to Normal Activity Call your doctor if you observe: Fever of 101 or Higher, Shortness of breath, Fainting spells and Chest pain Meaningful Use Info Meaningful Use Diagnoses (Choose all that apply): None applicable Discharge Plan Admission Admit Date/Time: 06/08/23 00:28 Attending Provider: Ralph Haynes Primary Care Provider: Miryam Orozco Consulting Providers: Ralph Wheeler Discharge Orders/Prescriptions Prescriptions: New polyethylene glycol 3350 17 gram Powder In Packet 17 g PO DAILY Qty: 30 0RF Continued zinc 50 mg tablet 50 mg PO DAILY glucosamine 500 mn-kveotrazh-jvazdlxd comp 400 mg-D3 667 unit-C-Mn cap 500-400-667 mg-mg-unit capsule 1 cap PO TID hydrocortisone-pramoxine 2.5-1 % (4g) cream 1 applic RC BID levothyroxine 125 mcg tablet 125 mcg PO DAILY Patient Comments: TAKE 1 TABLET BY MOUTH ONCE DAILY. TAKE ON EMPTY STOMACH. FOR THYROID. cyclobenzaprine 10 mg tablet 10 mg PO BID PRN (Reason: Muscle Spasm) calcium carbonate-vitamin D3 600 mg-10 mcg (400 unit) capsule 1 cap PO BID vitamin B complex Capsule 1 cap PO DAILY calcium acetate(phosphat bind) 667 mg capsule 667 mg PO TID cholecalciferol (vitamin D3) 25 mcg (1,000 unit) capsule 50 mcg PO DAILY vitamin E mixed 400 unit capsule 400 unit PO DAILY Mirena 20 mcg/24 hours (7 yrs) 52 mg intrauterine device 1 mcg intrauterine ONCE pyridoxine (vitamin B6) [Vitamin B-6] 100 mg tablet 100 mg PO DAILY ascorbate calcium (vitamin C) 500 mg tablet 500 mg PO DAILY acetaminophen 500 mg tablet 1,000 mg PO BID multivitamin Tablet 1 tab PO DAILY gabapentin 300 mg capsule 300 mg PO TID Patient Comments: TAKE ONE PILL BY MOUTH 3 TIMES PER DAY magnesium oxide 200 mg magnesium tablet 200 mg PO DAILY nitroglycerin 0.4 mg tablet, sublingual 0.4 mg sublingual Q5M PRN (Reason: chest pain) Qty: 30 1RF Rx Instructions: do not exceed 3 doses per episode furosemide [Lasix] 20 mg tablet 20 mg PO DAILY Qty: 90 3RF omeprazole 20 MG capsule 20 mg PO DAILY zolpidem 10 mg tablet 10 mg PO QHS Gemtesa 75 mg tablet 75 mg PO DAILY Patient Comments: TAKE 1 TABLET BY MOUTH EVERY DAY lisinopril 10 mg tablet 10 mg PO DAILY Patient Comments: per patient aspirin [Adult Aspirin Regimen] 81 mg tablet,delayed release (DR/EC) 81 mg PO DAILY Referrals / Follow Up: Miryam Orozco NP-C [Primary Care Provider] - Lizy Capone MD [Non-Staff] - Disposition Disposition (needs filled in before D/C Order can be placed): Home, Self Care Charges/Coding Visit Charges Inpatient E&M: 31252 Disch Hosp >30min 06/09/23 0824 <Electronically signed by Ralph Haynes MD> Cosigner Signature (if applicable): CC: BROOKLYN Orozco; Dr. Ralph Haynes MD~ Signed [facility] Work Phone: 1(653) 697-264903-05-2024 Progress note Author Ralph Haynes [facility] June 09, 2023 8:24am Note Date/Time June 09, 2023 7:46 am [facility] Medical Records Department [address] [place] [address] Progress Note - Hospitalist 06/09/23 0746 MR#: [id number] Acct: [id number] Name: MARI LOPEZ Rep #:[id number] : 1940 82 From: Ralph Haynes MD PCP: BROOKLYN Aguillon Status:ADM I N Location: [place] [address] Reason for Visit Reason for Visit: Diagnoses Fecal impaction (06/08/23) Chronic idiopathic constipation (06/08/23) Acute kidney failure, unspecified (06/08/23) Chronic kidney disease, unspecified (06/08/23) Dyspnea, unspecified (06/08/23) Subjective Subjective Patient seen abdominal distention resolved finally had several loose bowel movement with significant relief Objective Data Objective Data Vital Signs: Vital Signs Temp Pulse Resp BP Pulse Ox O2 Del Method 98.3 F 70 18 115/50 L 99 Room Air 06/09/23 04:31 06/09/23 04:31 06/09/23 04:31 06/09/23 04:31 06/09/23 04:31 06/09/23 04:31 Oxygen Delivery Method Room Air Weight: 98.7 kg Body Mass Index (BMI) 40.0 Intake & Output: Intake and Output for Last 24 Hours 06/07/23 06/08/23 06/09/23 23:59 23:59 23:59 Intake Total 1000 / 1000 2520.83 / 2520.83 783.33 / 783.33 Balance 1000 / 1000 2520.83 / 2520.83 783.33 / 783.33 Lab / Micro Data 06/09/23 06:05 06/09/23 06:05 Labs: Laboratory Results - last 24 hr 06/09/23 06:05: WBC 4.6, RBC 3.11 L, Hgb 10.2 L, Hct 33.6 L, MCV 108.0 H, MCH 32.8 H, MCHC 30.4 L, RDW Std Deviation 54.6 H, RDW Coeff of Parris 13.7, Plt Count 188, MPV 12.6 H, Immature Gran % (Auto) 0.200, Neut % (Auto) 42.7 L, Lymph % (Auto) 39.0, Powell % (Auto) 8.9, Eos % (Auto) 8.5 H, Baso % (Auto) 0.7, Absolute Neuts (auto) 2.0, Absolute Lymphs (auto) 1.80, Nucleated RBC % 0 Physical Exam Narrative GENERAL: cooperative HEENT: Atraumatic; normocephalic EYES; Anicteric, Normal Conjunctiva NECK; supple, normal thyroid, RESPIRATORY: Diminished to auscultation CARDIOVASCULAR: Regular S1 S2, GI: Distended, tympanitic to percussion : No Renal angle tenderness; EXTREMITIES: edema, no clubbing, MUSCULOSKELETAL: no muscle wasting NEURO: Awake; no lateralizing signs. SKIN: No Rash PSYCH; Flat affect Assessment & Plan Assessment/Plan (1) Constipation: QUALIFIERS: Constipation type: chronic idiopathic constipation Qualified Code(s): K59.04 - Chronic idiopathic constipation (2) Fecal impaction in rectum: (3) Acute kidney injury superimposed on chronic kidney disease: (4) Dyspnea on minimal exertion: PLAN: Plan Patient is an 82-year-old lady admitted with abdominal pain CT of the abdomen and pelvis reviewed constipation with fecal impaction and moderate dilatation ofthe entire colon. Admitted to regular nursing floor for further management 1. Abdominal pain ? Secondary to constipation CT scan of the abdomen and pelvis revealed evidence of constipation with possible fecal impaction and moderate dilatation of the entire colon patient admitted to the regular nursing floor for symptom management 2. Acute kidney injury ? Patient is on IV fluid with subsequent monitoring of electrolytes ordered 3. Metabolic acidosis ? Secondary to JOSE do expect improvement with rehydration 4. Anemia - Secondary to chronic disorder monitoring H&H and transfuse if patient becomes symptomatic or hemoglobin falls below 7 5. Hypothyroidism - Patient is on levothyroxine home dose continued 6. COPD ? Currently not in exacerbation aerosol treatment as needed 7. Chronic congestive heart failure with preserved ejection fraction -diuretic therapy held in view of patient JOSE 8. Hypertension - Blood pressure controlled, home medications except for lisinopril continued with dose adjustment as needed 9. 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 GERD ? On PPI 11. Generalized osteoarthritis ? With previous history of bilateral total knee replacement 11. Chronic back pain ? With spinal cord stimulator 12. Chronic lower extremity lymphedema ? Wound care nurse consulted 13. DVT prophylaxis 06/09/23823 <Electronically signed by Ralph Haynes MD> Cosigner Signature (if applicable): CC: ~ Signed [facility] Work Phone: 1(420) 760-307103-04-2024 Progress note Author Ralph Haynes [facility] June 08, 2023 8:46am Note Date/Time June 08, 2023 8:43 am [facility] Medical Records Department [address] [place] [id number] Progress Note - Hospitalist 06/08/23837 MR#: [id number] Acct: [id number] Name: MARI LOPEZ Rep #:[id number] : 1940 82 From: Ralph Haynes MD PCP: BROOKLYN Aguillon Status:ADM I N Location: [place] [address] Reason for Visit Reason for Visit: Diagnoses Fecal impaction (06/08/23) Chronic idiopathic constipation (06/08/23) Acute kidney failure, unspecified (06/08/23) Chronic kidney disease, unspecified (06/08/23) Dyspnea, unspecified (06/08/23) Subjective Subjective Patient is an 82-year-old lady admitted with abdominal pain CT of the abdomen and pelvis reviewed constipation with fecal impaction and moderate dilatation ofthe entire colon. Admitted to regular nursing floor for further management Objective Data Objective Data Vital Signs: Vital Signs Temp Pulse Resp BP Pulse Ox O2 Del Method 98.1 F 80 16 127/64 H 98 Room Air 06/08/23 08:22 06/08/23 08:22 06/08/23 08:22 06/08/23 08:22 06/08/23 08:22 06/08/23 08:23 Oxygen Delivery Method Room Air Weight: 99.9 kg Body Mass Index (BMI) 40.5 Intake & Output: Intake and Output for Last 24 Hours 06/06/23 06/07/23 06/08/23 23:59 23:59 23:59 Intake Total 1000 / 1000 Balance 1000 / 1000 Lab / Micro Data 06/08/23 05:55 06/08/23 05:55 Labs: Laboratory Results - last 24 hr 06/07/23 21:25: WBC 8.1, RBC 3.83 L, Hgb 12.6, Hct 41.1, MCV 107.3 H, MCH 32.9 H, MCHC 30.7 L, RDW Std Deviation 54.8 H, RDW Coeff of Parris 13.7, Plt Count 248, MPV 12.5 H, Immature Gran % (Auto) 0.200, Neut % (Auto) 74.9 H, Lymph % (Auto) 14.2 L, Powell % (Auto) 5.8, Eos % (Auto) 3.9, Baso % (Auto) 1.0, Absolute Neuts (auto) 6.0, Absolute Lymphs (auto) 1.14, Nucleated RBC % 0, Sodium 139, Potassium 4.6, Chloride 112 H, Carbon Dioxide 20.0 L, Anion Gap 7, BUN 87 H, Creatinine 2.42 H, Estim Creat Clear Calc 19.95, Est GFR (MDRD) Af Amer 25 L, Est GFR (MDRD) Non-Af 20 L, BUN/Creatinine Ratio 36.0 H, Glucose 102, Calcium 9.3, Total Bilirubin 0.40, AST 23, ALT 23, Alkaline Phosphatase 82, Total Protein 7.6, Albumin 3.7, Globulin 3.9, Albumin/Globulin Ratio 0.9 06/08/23 05:55: WBC 8.1, RBC 3.39 L, Hgb 11.1 L, Hct 36.5 L, MCV 107.7 H, MCH 32.7 H, MCHC 30.4 L, RDW Std Deviation 54.2 H, RDW Coeff of Parris 13.6, Plt Count 219, MPV 12.3 H, Immature Gran % (Auto) 0.400, Neut % (Auto) 69.9, Lymph % (Auto) 18.6 L, Powell % (Auto) 6.7, Eos % (Auto) 3.8, Baso % (Auto) 0.6, Absolute Neuts (auto) 5.7, Absolute Lymphs (auto) 1.50, Nucleated RBC % 0, Sodium 140, Potassium 4.1, Chloride 116 H, Carbon Dioxide 16.0 L, Anion Gap 8, BUN 75 H, Creatinine 2.04 H, Estim Creat Clear Calc 24.31, Est GFR (MDRD) Af Amer 30 L, Est GFR (MDRD) Non-Af 25 L, BUN/Creatinine Ratio 36.8 H, Glucose 115 H, Calcium 8.7, Phosphorus 5.7 H, Magnesium 2.8 H, Total Bilirubin 0.30, AST 27, ALT 26, Alkaline Phosphatase 82, Total Protein 6.5, Albumin 3.1 L, Globulin 3.4, Albumin/Globulin Ratio 0.9, TSH 5.75 H Radiography Diagnostic Testing: Radiology Impression Abdomen CT 06/07/23 19:29 IMPRESSION: 1. Suspect constipation with possible fecal impaction and moderate dilatation of the remainder of the colon. 2. Tiny nonobstructing left renal stone. Electronically Signed: Jae Carty MD at 23:06 EST , Physical Exam Narrative GENERAL: cooperative HEENT: Atraumatic; normocephalic EYES; Anicteric, Normal Conjunctiva NECK; supple, normal thyroid, RESPIRATORY: Diminished to auscultation CARDIOVASCULAR: Regular S1 S2, GI: Distended, tympanitic to percussion : No Renal angle tenderness; EXTREMITIES: edema, no clubbing, MUSCULOSKELETAL: no muscle wasting NEURO: Awake; no lateralizing signs. SKIN: No Rash PSYCH; Flat affect Assessment & Plan Assessment/Plan (1) Constipation: QUALIFIERS: Constipation type: chronic idiopathic constipation Qualified Code(s): K59.04 - Chronic idiopathic constipation (2) Fecal impaction in rectum: (3) Acute kidney injury superimposed on chronic kidney disease: (4) Dyspnea on minimal exertion: PLAN: Plan Patient is an 82-year-old lady admitted with abdominal pain CT of the abdomen and pelvis reviewed constipation with fecal impaction and moderate dilatation ofthe entire colon. Admitted to regular nursing floor for further management 1. Abdominal pain ? Secondary to constipation CT scan of the abdomen and pelvis revealed evidence of constipation with possible fecal impaction and moderate dilatation of the entire colon patient admitted to the regular nursing floor for symptom management 2. Acute kidney injury ? Patient is on IV fluid with subsequent monitoring of electrolytes ordered 3. Metabolic acidosis ? Secondary to JOSE do expect improvement with rehydration 4. Anemia - Secondary to chronic disorder monitoring H&H and transfuse if patient becomes symptomatic or hemoglobin falls below 7 5. Hypothyroidism - Patient is on levothyroxine home dose continued 6. COPD ? Currently not in exacerbation aerosol treatment as needed 7. Chronic congestive heart failure with preserved ejection fraction -diuretic therapy held in view of patient JOSE 8. Hypertension - Blood pressure controlled, home medications except for lisinopril continued with dose adjustment as needed 9. 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 GERD ? On PPI 11. Generalized osteoarthritis ? With previous history of bilateral total knee replacement 11. Chronic back pain ? With spinal cord stimulator 12. Chronic lower extremity lymphedema ? Wound care nurse consulted 13. DVT prophylaxis Time spent in the patient's overall evaluation,decision-making process, review of diagnostic data, adjustment of management, discussion with other providers, nursing nursing and ancillary staff involved in patient's care documentation,50 Minutes Charges/Coding Visit Charges Inpatient E&M: 94705 Subs Hosp L3 06/08/23 0846 <Electronically signed by Ralph Haynes MD> Cosigner Signature (if applicable): CC: ~ Signed [facility] Work Phone: 1(461) 238-322703-04-2024 History and physical note Author Ralph Smith [facility] June 08, 2023 4:54am Note Date/Time June 07, 2023 11:4 1pm [facility] System Medical Records Department [address] [place] [id number] H&P Exam - Hospitalist 06/07/23 2334 MR#: [id number] Acct: [id number] Name: MARI LOPEZ Rep #:[id number] : 1940 82 From: Ralph Wei DO PCP: BROOKLYN Aguillon Status:ADM I N Location: [place] [address] HPI - General General Date of Admission: 06/08/23 Date of Service: 06/07/23 Chief Complaint: Abdominal pain constipation HPI Narrative MARI LOPEZ, is an 82 F with a past medical history of essential hypertension, hypothyroidism, obesity; with BMI of 38.4 this admission, TADEO, remote history ofgastric bypass (2004), chronic diastolic CHF; with preserved left ventricular ejection fraction, history of COPD, history of DVT/PE, history of COVID-19 (2020), history of cholecystectomy, chronic kidney disease; stage III, chronic LE lymphedema, history of MRSA, GERD, history of spinal cord stimulator and osteoarthritis; s/p bilateral TKR who presents to [facility] ER complaining of abdominal pain and constipation. Ms. Lopez reports her symptoms began approximately 3 days prior to admission with constipation accompanied by agradual-onset of generalized abdominal pain and distention that became acutely worse around noon today with no BM or flatus for the past 3 days so she decided to give herself an enema and to come in for further evaluation and treatment. She states she typically has daily BM's and she ate cereal earlier in the morning and initially felt fine but then gradually worsened throughout the day. She denies associated nausea, vomiting or a history of colonic obstruction. In the ER her CT scan of the abdomen and pelvis revealed evidence of constipation with possible fecal impaction and moderate dilatation of the entire colon complicated by laboratory evidence of JOSE; with elevated serum creatinine of 2.42 mg/dL present on admission (up from her baseline of 1.42 mg/dL last admission) with patient then having a large BM in the ER (but still needed admission for JOSE) and she was then admitted to the general medical floor for ongoing care for a stay that is expected to be greater than 48 hours. [facility] Medical History (HFpEF) heart failure with preserved ejection fraction Abdominal pain Arthritis Cholecystectomy planned Chronic acquired lymphedema Chronic kidney disease Chronic obstructive airway disease with asthma COVID-19 (01/19/21) DVT (deep venous thrombosis) Essential (primary) hypertension GERD (gastroesophageal reflux disease) H/O hemorrhoids History of back problems History of pulmonary embolus (PE) Incomplete left bundle branch block Insomnia Morbid obesity with BMI of 45.0-49.9, adult MRSA (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 Obesity Obstructive sleep apnea Spinal cord stimulator status Swelling of left lower extremity Thyroid disease Home Medications omeprazole 20 mg capsule,delayed release 20 mg PO DAILY 11/13/17 [History Last Taken 01/07/18 08:30] zinc 50 mg tablet 50 mg PO DAILY 02/09/18 [History Last Taken Unknown] glucosamine 500 su-mdfmcmdae-jswoultp comp 400 mg-D3 667 unit-C-Mn cap 1 cap PO TID 10/17/19 [History Last Taken Unknown] hydrocortisone-pramoxine 2.5 %-1 % (4g) rectal cream 1 applic MT BID 10/17/19 [History Last Taken Unknown] zolpidem 10 mg tablet 10 mg PO QHS SLEEP 01/09/21 [History Last Taken Unknown] calcium acetate(phosphat bind) 667 mg capsule 667 mg PO TID 07/25/21 [History Last Taken Unknown] calcium carbonate 600 mg-vitamin D3 10 mcg (400 unit) capsule 1 cap PO BID 07/25/21 [History Last Taken Unknown] cholecalciferol (vitamin D3) 25 mcg (1,000 unit) capsule 50 mcg PO DAILY 07/25/21 [History Last Taken Unknown] cyclobenzaprine 10 mg tablet 10 mg PO BID PRN Muscle Spasm 07/25/21 [History Last Taken Unknown] levonorgestrel 21 mcg/24 hours (8 yrs) 52 mg intrauterine device (Mirena) 1 mcg intrauterine ONCE 07/25/21 [History Last Taken Unknown] levothyroxine 125 mcg tablet 125 mcg PO DAILY 07/25/21 [History Last Taken Unknown] vitamin B complex 1 cap PO DAILY 07/25/21 [History Last Taken Unknown] vitamin E mixed 400 unit capsule 400 unit PO DAILY 07/25/21 [History Last Taken Unknown] ascorbate calcium (vitamin C) 500 mg tablet 500 mg PO DAILY 12/19/21 [History Last Taken Unknown] pyridoxine (vitamin B6) 100 mg tablet (Vitamin B-6) 100 mg PO DAILY 12/19/21 [History Last Taken Unknown] acetaminophen 500 mg tablet 1,000 mg PO BID 06/27/22 [History Last Taken Unknown] gabapentin 300 mg capsule 300 mg PO TID 06/27/22 [History Last Taken Unknown] magnesium oxide 200 mg PO DAILY 06/27/22 [History Last Taken Unknown] multivitamin 1 tab PO DAILY 06/27/22 [History Last Taken Unknown] nitroglycerin 0.4 mg sublingual tablet 0.4 mg sublingual Q5M PRN chest pain #30 tabs 06/27/22 [Rx Last Taken Unknown] aspirin 81 mg tablet,delayed release (Adult Aspirin Regimen) 81 mg PO DAILY 07/11/22 [History Last Taken 08/01/22] furosemide 20 mg tablet (Lasix) 20 mg PO DAILY #90 tabs 10/03/22 [Rx Last Taken Unknown] lisinopril 10 mg tablet 10 mg PO DAILY 06/07/23 [History Last Taken Unknown] vibegron 75 mg tablet (Gemtesa) 75 mg PO DAILY 06/07/23 [History Last Taken Unknown] Allergy/AdvReac Type Severity Reaction Status Date / Time cefazolin [From Kefzol] Allergy Severe hives/difficulty Verified 10/03/22 10:07 swallowing ibuprofen Allergy Unknown Rash Verified 10/03/22 10:07 peanut Allergy Anaphylaxis Verified 10/03/22 10:07 Sulfa (Sulfonamide Allergy Unknown Verified 10/03/22 10:07 Antibiotics) sulfamethoxazole Allergy Other Verified 10/03/22 10:07 [From Bactrim] trimethoprim [From Bactrim] Allergy Other Verified 10/03/22 10:07 Family History Mother Cancer uterine Surgical History H/O hemorrhoidectomy History of bilateral knee replacement History of dilatation and curettage History of gastric bypass History of herniorrhaphy History of hysteroscopy History of left heart catheterization (08/01/22) History of open reduction and internal fixation (ORIF) procedure Status post debridement Social History Smoking Status: Never smoker alcohol intake: never substance use type: does not use caffeine: Yes Type: coffee Number of servings: 3 ROS ROS Narrative Review of systems: General: Patient denies fever or chills. HENT: Denies headache, denies stuffy nose, denies sore throat EYES: Denies changes in vision or discharge from eyes. Resp: Denies cough, denies shortness of breath Cardiac: Denies chest pain or palpitations GI: Patient admits to abdominal pain, nausea and constipation but she denies vomiting. : Denies changes in urination Extremity: Denies swelling Musculoskeletal: Feels somewhat generally weak and unwell Neuro: Denies any numbness/tingling Heme: Denies any bleeding or bruising Skin: Denies rashes Psychiatric: No complaints voiced related alcohol depression or anxiety. Endocrine: No polyuria, polydipsia or polyphagia. The rest of the 14 point ROS was negative except for positives in HPI. Vital Signs Vital Signs Vital Signs: 06/07/23 19:09 06/07/23 21:34 06/07/23 21:34 Temperature 98.1 F 97.4 F L 97.5 F L Temperature Source Temporal Oral Oral Pulse Rate 92 76 75 Respiratory Rate 15 19 H 19 H Blood Pressure 148/93 H 138/80 H 138/80 H Blood Pressure Mean 111 99 99 Pulse Ox 97 96 98 Oxygen Delivery Method Room Air Room Air Room Air Weight Weight: 210 lb Body Mass Index (BMI) 38.4 Physical Exam Const alert and oriented x3 Constitutional Narrative: Mild distress noted with distended abdomen patient fairly uncomfortable. General Appearance: cooperative HEENT normocephalic, head/scalp atraumatic, hearing grossly normal bilaterally and moist oral mucous membranes Eyes PERRL and EOMs intact bilaterally Neck no lymphadenopathy and supple Resp normal respiratory effort, no retractions, no use of accessory muscles and clearto auscultation bilaterally Cardio regular rate and regular rhythm GI normal to inspection, nondistended, normoactive bowel sounds and soft to palpation GI Narrative: Patient is abdomen is grossly distended with mild generalized tenderness to palpation with obvious previous ventral hernias without evidence of obstruction. Extremity full ROM Extremity Narrative: Patient has evidence of mild bilateral chronic lower extremity lymphedema. Neuro oriented x3, CN's II-XII intact bilaterally, moves all extremities and no focal motor deficits Sensorium / Orientation: awake, alert, oriented to person, oriented to place andoriented to time Speech: speech normal Motor Exam: strength 5/5 throughout Psych Mood & Affect: anxious Results Medical Records Data Attestation: I reviewed the patient's medical records Lab / Micro Data Attestation: I reviewed the patient's lab results. 06/07/23 21:25 06/07/23 21:25 Labs: Laboratory Results - last 24 hr 06/07/23 21:25: WBC 8.1, RBC 3.83 L, Hgb 12.6, Hct 41.1, MCV 107.3 H, MCH 32.9 H, MCHC 30.7 L, RDW Std Deviation 54.8 H, RDW Coeff of Parris 13.7, Plt Count 248, MPV 12.5 H, Immature Gran % (Auto) 0.200, Neut % (Auto) 74.9 H, Lymph % (Auto) 14.2 L, Powell % (Auto) 5.8, Eos % (Auto) 3.9, Baso % (Auto) 1.0, Absolute Neuts (auto) 6.0, Absolute Lymphs (auto) 1.14, Nucleated RBC % 0, Sodium 139, Potassium 4.6, Chloride 112 H, Carbon Dioxide 20.0 L, Anion Gap 7, BUN 87 H, Creatinine 2.42 H, Estim Creat Clear Calc 19.95, Est GFR (MDRD) Af Amer 25 L, Est GFR (MDRD) Non-Af 20 L, BUN/Creatinine Ratio 36.0 H, Glucose 102, Calcium 9.3, Total Bilirubin 0.40, AST 23, ALT 23, Alkaline Phosphatase 82, Total Protein 7.6, Albumin 3.7, Globulin 3.9, Albumin/Globulin Ratio 0.9 Imaging Radiology Impression Abdomen CT 06/07/23 19:29 IMPRESSION: 1. Suspect constipation with possible fecal impaction and moderate dilatation of the remainder of the colon. 2. Tiny nonobstructing left renal stone. Electronically Signed: Jae Carty MD at 23:06 EST Reading Location ID and State: [id number] Tel , Service support , Assessment & Plan Assessment/Plan (1) Constipation: QUALIFIERS: Constipation type: chronic idiopathic constipation Qualified Code(s): K59.04 - Chronic idiopathic constipation (2) Fecal impaction in rectum: (3) Acute kidney injury superimposed on chronic kidney disease: (4) Dyspnea on minimal exertion: PLAN: Plan 1. CT scan of the abdomen and pelvis revealed evidence of constipation with possible fecal impaction and moderate dilatation of the entire colon - Admit to general medical floor. Continue bowel regimen and repeat enemas as needed to obtain complete evacuation. Give Zofran IV prn nausea and give Tylenol prn for pain or fever. 2. Laboratory evidence of JOSE; with elevated serum creatinine of 2.42 mg/dL present on admission (up from her baseline of 1.42 mg/dL last admission) due to #1 in the setting of Chronic kidney disease; stage III - Aggressively volume resuscitate and then recheck BMP in the AM to ensure improvement. 3. Generalized weakness with ambulatory dysfunction and malaise arising from #1& #2 - We we will consult PT/OT and case management to see this patient on rounds in the a.m. with help appreciated in advance. 4. Obesity; with BMI of 38.4 this admission plus TADEO in the setting of a remotehistory of gastric bypass (2004) compounding #1 - #3 - Weight loss will be recommended. Resume CPAP as previous. 5. Essential hypertension - Hold scheduled antihypertensives until kidney function normalizes. 6. Hypothyroidism - Continue Synthroid and check TSH in light of #1. 7. Chronic diastolic CHF; with preserved left ventricular ejection fraction - Stable. 8. History of COPD - Stable with no evidence of flare. Continue prn nebulizers. 9. History of DVT/PE - Noted. 10. History of COVID-19 (2020) - Noted. 11. History of cholecystectomy - Noted. 12. Chronic LE lymphedema - Stable. 13. History of MRSA - Place on contact precautions. 14. GERD - Continue PPI. 15. History of spinal cord stimulator - Noted. 16. Osteoarthritis; s/p bilateral TKR - Stable. Give Tylenol prn. 17. DVT prophylaxis - Lovenox 30 mg sq daily. Total time: Approximately 55 minutes. Charges/Coding Visit Charges Inpatient E&M: 71363 Init Hosp L2 06/08/23 9758 <Electronically signed by Ralph Wheeler DO> Cosigner Signature (if applicable): CC: BROOKLYN Orozco; Dr. Ralph Wheeler DO~ Signed [facility] Work Phone: 1(107) 404-264703-04-2024 Discharge summary Author Judson Toney [facility] June 07, 2023 11:43pm Note Date/Time June 07, 2023 7:27 pm [facility] Medical Records Department [address] [place] [address] Emergency Department Summary 06/07/23 MR#: [id number] Acct: [id number] Name: MARI LOPEZ Rep #:[id number] : 1940 82 From: Weston BELLAMY PCP: MARILEE AguillonC Status:REG E R Location: ED HPI <MIA Hodge - Last Filed: 06/07/23 21:37> History of Present Illness Chief Complaint: Abd Pain Narrative Narrative: 82-year-old female with PMH of HTN, cholecystectomy, gastric bypass in 2004 states normally she has daily bowel movements but over the last few months has had problems with constipation. She has not had a BM for 3 days. She is not passing gas. No nausea or vomiting. She ate cereal and a banana this morning and felt fine. She took a laxative and used enemas and only a small stringy amount of stool came out. Around noon she started developing abdominal pain anddistention which has progressively worsened throughout the day. No history of obstruction. PFSH <MIA Hodge - Last Filed: 06/07/23 21:37> PFS Medical History (HFpEF) heart failure with preserved ejection fraction Abdominal pain Arthritis Chronic acquired lymphedema Chronic kidney disease Chronic obstructive airway disease with asthma COVID-19 (01/19/21) DVT (deep venous thrombosis) Essential (primary) hypertension GERD (gastroesophageal reflux disease) History of back problems History of pulmonary embolus (PE) Incomplete left bundle branch block Insomnia Morbid obesity with BMI of 45.0-49.9, adult MRSA (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 Obesity Obstructive sleep apnea Spinal cord stimulator status Swelling of left lower extremity Thyroid disease Home Medications omeprazole 20 mg capsule,delayed release 20 mg PO DAILY 11/13/17 [History Last Taken 01/07/18 08:30] zinc 50 mg tablet 50 mg PO DAILY 02/09/18 [History Last Taken Unknown] glucosamine 500 td-aefiyzlxb-kablnbzg comp 400 mg-D3 667 unit-C-Mn cap 1 cap PO TID 10/17/19 [History Last Taken Unknown] hydrocortisone-pramoxine 2.5 %-1 % (4g) rectal cream 1 applic MT BID 10/17/19 [History Last Taken Unknown] zolpidem 10 mg tablet 10 mg PO QHS SLEEP 01/09/21 [History Last Taken Unknown] calcium acetate(phosphat bind) 667 mg capsule 667 mg PO TID 07/25/21 [History Last Taken Unknown] calcium carbonate 600 mg-vitamin D3 10 mcg (400 unit) capsule 1 cap PO BID 07/25/21 [History Last Taken Unknown] cholecalciferol (vitamin D3) 25 mcg (1,000 unit) capsule 50 mcg PO DAILY 07/25/21 [History Last Taken Unknown] cyclobenzaprine 10 mg tablet 10 mg PO BID PRN Muscle Spasm 07/25/21 [History Last Taken Unknown] levonorgestrel 21 mcg/24 hours (8 yrs) 52 mg intrauterine device (Mirena) 1 mcg intrauterine ONCE 07/25/21 [History Last Taken Unknown] levothyroxine 125 mcg tablet 125 mcg PO DAILY 07/25/21 [History Last Taken Unknown] vitamin B complex 1 cap PO DAILY 07/25/21 [History Last Taken Unknown] vitamin E mixed 400 unit capsule 400 unit PO DAILY 07/25/21 [History Last Taken Unknown] ascorbate calcium (vitamin C) 500 mg tablet 500 mg PO DAILY 12/19/21 [History Last Taken Unknown] pyridoxine (vitamin B6) 100 mg tablet (Vitamin B-6) 100 mg PO DAILY 12/19/21 [History Last Taken Unknown] acetaminophen 500 mg tablet 1,000 mg PO BID 06/27/22 [History Last Taken Unknown] gabapentin 300 mg capsule 300 mg PO TID 06/27/22 [History Last Taken Unknown] magnesium oxide 200 mg PO DAILY 06/27/22 [History Last Taken Unknown] multivitamin 1 tab PO DAILY 06/27/22 [History Last Taken Unknown] nitroglycerin 0.4 mg sublingual tablet 0.4 mg sublingual Q5M PRN chest pain #30 tabs 06/27/22 [Rx Last Taken Unknown] aspirin 81 mg tablet,delayed release (Adult Aspirin Regimen) 81 mg PO DAILY 07/11/22 [History Last Taken 08/01/22] furosemide 20 mg tablet (Lasix) 20 mg PO DAILY #90 tabs 10/03/22 [Rx Last Taken Unknown] lisinopril 10 mg tablet 10 mg PO DAILY 06/07/23 [History Last Taken Unknown] vibegron 75 mg tablet (Gemtesa) 75 mg PO DAILY 06/07/23 [History Last Taken Unknown] Allergy/AdvReac Type Severity Reaction Status Date / [facility]ergy Severe hives/difficulty Verified 10/03/22 10:07 swallowing ibuprofen Allergy Unknown Rash Verified 10/03/22 10:07 peanut Allergy Anaphylaxis Verified 10/03/22 10:07 Sulfa (Sulfonamide Allergy Unknown Verified 10/03/22 10:07 Antibiotics) sulfamethoxazole Allergy Other Verified 10/03/22 10:07 [From Bactrim] trimethoprim [From Bactrim] Allergy Other Verified 10/03/22 10:07 Family History Mother Cancer uterine Surgical History H/O hemorrhoidectomy History of bilateral knee replacement History of dilatation and curettage History of gastric bypass History of herniorrhaphy History of hysteroscopy History of left heart catheterization (08/01/22) History of open reduction and internal fixation (ORIF) procedure Status post debridement Social History Smoking Status: Never smoker alcohol intake: never substance use type: does not use caffeine: Yes Type: coffee Number of servings: 3 ROS <MIA Hodge - Last Filed: 06/07/23 21:37> ROS ED ROS Narrative Constitutional: Negative for fever, chills. GI: Positive for abdominal pain, nausea, constipation. No vomiting. : Negative for dysuria, hematuria or frequency. EXAM <MIA Hodge - Last Filed: 06/07/23 21:37> Physical Exam Narrative Exam Narrative: CONST: Patient sitting in no acute distress. EYES: Normal inspection. NECK: Normal inspection. RESP: No respiratory distress, CTAB. CVS: Regular rate and rhythm, no murmur, no gallop. ABD: Old healed surgical scars. Distended abdomen, firm with maximal tenderness on left side. No guarding or rebound. SKIN: Color normal, no rash, warm, dry, intact. EXTREMITIES: Normal appearance, no pedal edema. NEURO: Oriented x4. PSYCH: Normal affect. Const Vital Signs: 06/07/23 19:09 06/07/23 21:34 06/07/23 21:34 Temperature 98.1 F 97.4 F L 97.5 F L Temperature Source Temporal Oral Oral Pulse Rate 92 76 75 Respiratory Rate 15 19 H 19 H Blood Pressure 148/93 H 138/80 H 138/80 H Blood Pressure Mean 111 99 99 Pulse Ox 97 96 98 Oxygen Delivery Method Room Air Room Air Room Air <Dr. Judson Toney DO - Last Filed: 06/07/23 23:43> Physical Exam Const Vital Signs: 06/07/23 19:09 06/07/23 21:34 06/07/23 21:34 Temperature 98.1 F 97.4 F L 97.5 F L Temperature Source Temporal Oral Oral Pulse Rate 92 76 75 Respiratory Rate 15 19 H 19 H Blood Pressure 148/93 H 138/80 H 138/80 H Blood Pressure Mean 111 99 99 Pulse Ox 97 96 98 Oxygen Delivery Method Room Air Room Air Room Air [facility] <MIA Hodge - Last Filed: 06/07/23 21:37> [facility] Narrative Medical decision making narrative: Differential: Constipation, obstruction, diverticulitis Patient has history of remote gastric bypass in 2004. Reports 3 days of constipation and gradual onset abdominal pain and distention that started aroundnoon today. No vomiting. She appears uncomfortable but nontoxic. Vital signs stable. Normal cardiopulmonary exam. Abdomen is moderately distended and firm. Tender over the left side. No peritonitis. There was a delay in blood work due to inability to place IV access. Plan will be for labs and CT scan with oral and IV contrast. Lab Data Labs: Laboratory Results - last 24 hr 06/07/23 21:25 WBC 8.1 RBC 3.83 L Hgb 12.6 Hct 41.1 MCV 107.3 H MCH 32.9 H MCHC 30.7 L RDW Std Deviation 54.8 H RDW Coeff of Parris 13.7 Plt Count 248 MPV 12.5 H Immature Gran % (Auto) 0.200 Neut % (Auto) 74.9 H Lymph % (Auto) 14.2 L Powell % (Auto) 5.8 Eos % (Auto) 3.9 Baso % (Auto) 1.0 Absolute Neuts (auto) 6.0 Absolute Lymphs (auto) 1.14 Nucleated RBC % 0 Sodium 139 Potassium 4.6 Chloride 112 H Carbon Dioxide 20.0 L Anion Gap 7 BUN 87 H Creatinine 2.42 H Estim Creat Clear Calc 19.95 Est GFR (MDRD) Af Amer 25 L Est GFR (MDRD) Non-Af 20 L BUN/Creatinine Ratio 36.0 H Glucose 102 Calcium 9.3 Total Bilirubin 0.40 AST 23 ALT 23 Alkaline Phosphatase 82 Total Protein 7.6 Albumin 3.7 Globulin 3.9 Albumin/Globulin Ratio 0.9 Radiography Diagnostic Testing: Clinical Impression(s) from Imaging Studies Abdomen CT 06/07/23 19:29 IMPRESSION: 1. Suspect constipation with possible fecal impaction and moderate dilatation of the remainder of the colon. 2. Tiny nonobstructing left renal stone. Electronically Signed: Jae Carty MD at 23:06 EST , <Dr. Judson Toney, DO - Last Filed: 06/07/23 23:43> [facility] MDM Narrative Medical decision making narrative: Differential: Constipation, obstruction, diverticulitis Patient has history of remote gastric bypass in 2004. Reports 3 days of constipation and gradual onset abdominal pain and distention that started aroundnoon today. No vomiting. She appears uncomfortable but nontoxic. Vital signs stable. Normal cardiopulmonary exam. Abdomen is moderately distended and firm. Tender over the left side. No peritonitis. There was a delay in blood work due to inability to place IV access. Plan will be for labs and CT scan with oral and IV contrast. CT scan of the abdomen pelvis revealed evidence of stool impaction. No definitive SBO. On reevaluation after morphine then 0.5 mg of dilaudid patient reported improvedpain. She reports went to the bathroom and had a bowel movement. She states this does not feel complete she is feels like she could still go a little bit. I did speak with the general surgeon on-call Dr. Thrasher who reviewed the patient's imaging and recommended using suppositories/enemas and admitting to medicine for observation. Pt was resuscited with 2L of NS. Given the patient's acute kidney injury, evidence of fecal impaction and constipation we will admit the patient to [facility] as a full admit. Discussed with Dr. Matthews. ED attending note: I evaluated the patient in conjunction with the CAREY. I agree with his/her statements and above findings. I have personally performed a face to face assessment of the patient and have reviewed the CAREY Note. I performed a substantive portion of the visit including all aspects of the following. I personally saw the patient performed chart review, physical exam, reviewed labs,imaging (if obtained), and formulated a treatment and management plan. This note was generated with QWiPS dictation software. It may contain incorrectwords, spelling, and punctuation that were not noted in review of the chart prior to signing. Lab Data Labs: Laboratory Results - last 24 hr 06/07/23 21:25 WBC 8.1 RBC 3.83 L Hgb 12.6 Hct 41.1 MCV 107.3 H MCH 32.9 H MCHC 30.7 L RDW Std Deviation 54.8 H RDW Coeff of Parris 13.7 Plt Count 248 MPV 12.5 H Immature Gran % (Auto) 0.200 Neut % (Auto) 74.9 H Lymph % (Auto) 14.2 L Powell % (Auto) 5.8 Eos % (Auto) 3.9 Baso % (Auto) 1.0 Absolute Neuts (auto) 6.0 Absolute Lymphs (auto) 1.14 Nucleated RBC % 0 Sodium 139 Potassium 4.6 Chloride 112 H Carbon Dioxide 20.0 L Anion Gap 7 BUN 87 H Creatinine 2.42 H Estim Creat Clear Calc 19.95 Est GFR (MDRD) Af Amer 25 L Est GFR (MDRD) Non-Af 20 L BUN/Creatinine Ratio 36.0 H Glucose 102 Calcium 9.3 Total Bilirubin 0.40 AST 23 ALT 23 Alkaline Phosphatase 82 Total Protein 7.6 Albumin 3.7 Globulin 3.9 Albumin/Globulin Ratio 0.9 Radiography Diagnostic Testing: Clinical Impression(s) from Imaging Studies Abdomen CT 06/07/23 19:29 IMPRESSION: 1. Suspect constipation with possible fecal impaction and moderate dilatation of the remainder of the colon. 2. Tiny nonobstructing left renal stone. Electronically Signed: Jae Carty MD at 23:06 EST , Discharge Plan Triage Chief Complaint: Abd Pain ED Midlevel Provider: Weston Delacruz ED Provider: Judson Toney Dx/Rx/DC Orders Clinical Impression: Acute kidney injury superimposed on chronic kidney disease, Constipation Prescriptions: No Action zinc 50 mg tablet 50 mg PO DAILY glucosamine 500 qt-meddoytcu-tcduqetp comp 400 mg-D3 667 unit-C-Mn cap 500-400-667 mg-mg-unit capsule 1 cap PO TID hydrocortisone-pramoxine 2.5-1 % (4g) cream 1 applic RC BID levothyroxine 125 mcg tablet 125 mcg PO DAILY Patient Comments: TAKE 1 TABLET BY MOUTH ONCE DAILY. TAKE ON EMPTY STOMACH. FOR THYROID. cyclobenzaprine 10 mg tablet 10 mg PO BID PRN (Reason: Muscle Spasm) calcium carbonate-vitamin D3 600 mg-10 mcg (400 unit) capsule 1 cap PO BID vitamin B complex Capsule 1 cap PO DAILY calcium acetate(phosphat bind) 667 mg capsule 667 mg PO TID cholecalciferol (vitamin D3) 25 mcg (1,000 unit) capsule 50 mcg PO DAILY vitamin E mixed 400 unit capsule 400 unit PO DAILY Mirena 20 mcg/24 hours (7 yrs) 52 mg intrauterine device 1 mcg intrauterine ONCE pyridoxine (vitamin B6) [Vitamin B-6] 100 mg tablet 100 mg PO DAILY ascorbate calcium (vitamin C) 500 mg tablet 500 mg PO DAILY acetaminophen 500 mg tablet 1,000 mg PO BID multivitamin Tablet 1 tab PO DAILY gabapentin 300 mg capsule 300 mg PO TID Patient Comments: TAKE ONE PILL BY MOUTH 3 TIMES PER DAY magnesium oxide 200 mg magnesium tablet 200 mg PO DAILY nitroglycerin 0.4 mg tablet, sublingual 0.4 mg sublingual Q5M PRN (Reason: chest pain) Qty: 30 1RF Rx Instructions: do not exceed 3 doses per episode furosemide [Lasix] 20 mg tablet 20 mg PO DAILY Qty: 90 3RF omeprazole 20 MG capsule 20 mg PO DAILY zolpidem 10 mg tablet 10 mg PO QHS Gemtesa 75 mg tablet 75 mg PO DAILY Patient Comments: TAKE 1 TABLET BY MOUTH EVERY DAY lisinopril 10 mg tablet 10 mg PO DAILY Patient Comments: per patient aspirin [Adult Aspirin Regimen] 81 mg tablet,delayed release (DR/EC) 81 mg PO DAILY Primary Care Provider: Miryam Orozco Referrals: Lizy Capone MD [Non-Staff] - What to do if you have Problems For any increased pain, shortness of breath, bleeding, nausea or vomiting, chestpain, or any unexpected problems, contact your Primary Care Provider. Call [facility] ([phone]) or report to the closest Emergency Room. Call 911 if necessary. 06/07/232136 <Electronically signed by Weston BELLAMY> Cosigner Signature (if applicable): 06/07/23 2343 <Electronically signed by Judson Toney DO> CC: LILLIAM-C Miryam Orozco ~ Signed [facility] Work Phone: 1(133) 894-629803-03-2024 Discharge summary Author [facility] June 07, 2023 11:43pm Note Date/Time June 07, 2023 7:27 pm [facility] Medical Records Department [address] [place] [address] Emergency Department Summary 06/07/23 MR#: [id number] Acct: [id number] Name: MARI LOPEZ Rep #:[id number] : 1940 82 From: Weston BELLAMY PCP: BROOKLYN Aguillon Status:REG E R Location: ED HPI <MIA Hodge - Last Filed: 06/07/23 21:37> History of Present Illness Chief Complaint: Abd Pain Narrative Narrative: 82-year-old female with PMH of HTN, cholecystectomy, gastric bypass in 2004 states normally she has daily bowel movements but over the last few months has had problems with constipation. She has not had a BM for 3 days. She is not passing gas. No nausea or vomiting. She ate cereal and a banana this morning and felt fine. She took a laxative and used enemas and only a small stringy amount of stool came out. Around noon she started developing abdominal pain anddistention which has progressively worsened throughout the day. No history of obstruction. PFSH <MIA Hodge - Last Filed: 06/07/23 21:37> [facility] Medical History (HFpEF) heart failure with preserved ejection fraction Abdominal pain Arthritis Chronic acquired lymphedema Chronic kidney disease Chronic obstructive airway disease with asthma COVID-19 (01/19/21) DVT (deep venous thrombosis) Essential (primary) hypertension GERD (gastroesophageal reflux disease) History of back problems History of pulmonary embolus (PE) Incomplete left bundle branch block Insomnia Morbid obesity with BMI of 45.0-49.9, adult MRSA (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 Obesity Obstructive sleep apnea Spinal cord stimulator status Swelling of left lower extremity Thyroid disease Home Medications omeprazole 20 mg capsule,delayed release 20 mg PO DAILY 11/13/17 [History Last Taken 01/07/18 08:30] zinc 50 mg tablet 50 mg PO DAILY 02/09/18 [History Last Taken Unknown] glucosamine 500 wz-nmmbeyniz-jgipwdpb comp 400 mg-D3 667 unit-C-Mn cap 1 cap PO TID 10/17/19 [History Last Taken Unknown] hydrocortisone-pramoxine 2.5 %-1 % (4g) rectal cream 1 applic MT BID 10/17/19 [History Last Taken Unknown] zolpidem 10 mg tablet 10 mg PO QHS SLEEP 01/09/21 [History Last Taken Unknown] calcium acetate(phosphat bind) 667 mg capsule 667 mg PO TID 07/25/21 [History Last Taken Unknown] calcium carbonate 600 mg-vitamin D3 10 mcg (400 unit) capsule 1 cap PO BID 07/25/21 [History Last Taken Unknown] cholecalciferol (vitamin D3) 25 mcg (1,000 unit) capsule 50 mcg PO DAILY 07/25/21 [History Last Taken Unknown] cyclobenzaprine 10 mg tablet 10 mg PO BID PRN Muscle Spasm 07/25/21 [History Last Taken Unknown] levonorgestrel 21 mcg/24 hours (8 yrs) 52 mg intrauterine device (Mirena) 1 mcg intrauterine ONCE 07/25/21 [History Last Taken Unknown] levothyroxine 125 mcg tablet 125 mcg PO DAILY 07/25/21 [History Last Taken Unknown] vitamin B complex 1 cap PO DAILY 07/25/21 [History Last Taken Unknown] vitamin E mixed 400 unit capsule 400 unit PO DAILY 07/25/21 [History Last Taken Unknown] ascorbate calcium (vitamin C) 500 mg tablet 500 mg PO DAILY 12/19/21 [History Last Taken Unknown] pyridoxine (vitamin B6) 100 mg tablet (Vitamin B-6) 100 mg PO DAILY 12/19/21 [History Last Taken Unknown] acetaminophen 500 mg tablet 1,000 mg PO BID 06/27/22 [History Last Taken Unknown] gabapentin 300 mg capsule 300 mg PO TID 06/27/22 [History Last Taken Unknown] magnesium oxide 200 mg PO DAILY 06/27/22 [History Last Taken Unknown] multivitamin 1 tab PO DAILY 06/27/22 [History Last Taken Unknown] nitroglycerin 0.4 mg sublingual tablet 0.4 mg sublingual Q5M PRN chest pain #30 tabs 06/27/22 [Rx Last Taken Unknown] aspirin 81 mg tablet,delayed release (Adult Aspirin Regimen) 81 mg PO DAILY 07/11/22 [History Last Taken 08/01/22] furosemide 20 mg tablet (Lasix) 20 mg PO DAILY #90 tabs 10/03/22 [Rx Last Taken Unknown] lisinopril 10 mg tablet 10 mg PO DAILY 06/07/23 [History Last Taken Unknown] vibegron 75 mg tablet (Gemtesa) 75 mg PO DAILY 06/07/23 [History Last Taken Unknown] Allergy/AdvReac Type Severity Reaction Status Date / Time cefazolin [From Kefzol] Allergy Severe hives/difficulty Verified 10/03/22 10:07 swallowing ibuprofen Allergy Unknown Rash Verified 10/03/22 10:07 peanut Allergy Anaphylaxis Verified 10/03/22 10:07 Sulfa (Sulfonamide Allergy Unknown Verified 10/03/22 10:07 Antibiotics) sulfamethoxazole Allergy Other Verified 10/03/22 10:07 [From Bactrim] trimethoprim [From Bactrim] Allergy Other Verified 10/03/22 10:07 Family History Mother Cancer uterine Surgical History H/O hemorrhoidectomy History of bilateral knee replacement History of dilatation and curettage History of gastric bypass History of herniorrhaphy History of hysteroscopy History of left heart catheterization (08/01/22) History of open reduction and internal fixation (ORIF) procedure Status post debridement Social History Smoking Status: Never smoker alcohol intake: never substance use type: does not use caffeine: Yes Type: coffee Number of servings: 3 ROS <MIA Hodge - Last Filed: 06/07/23 21:37> ROS ED ROS Narrative Constitutional: Negative for fever, chills. GI: Positive for abdominal pain, nausea, constipation. No vomiting. : Negative for dysuria, hematuria or frequency. EXAM <MIA Hodge - Last Filed: 06/07/23 21:37> Physical Exam Narrative Exam Narrative: CONST: Patient sitting in no acute distress. EYES: Normal inspection. NECK: Normal inspection. RESP: No respiratory distress, CTAB. CVS: Regular rate and rhythm, no murmur, no gallop. ABD: Old healed surgical scars. Distended abdomen, firm with maximal tenderness on left side. No guarding or rebound. SKIN: Color normal, no rash, warm, dry, intact. EXTREMITIES: Normal appearance, no pedal edema. NEURO: Oriented x4. PSYCH: Normal affect. Const Vital Signs: 06/07/23 19:09 06/07/23 21:34 06/07/23 21:34 Temperature 98.1 F 97.4 F L 97.5 F L Temperature Source Temporal Oral Oral Pulse Rate 92 76 75 Respiratory Rate 15 19 H 19 H Blood Pressure 148/93 H 138/80 H 138/80 H Blood Pressure Mean 111 99 99 Pulse Ox 97 96 98 Oxygen Delivery Method Room Air Room Air Room Air <Dr. Judson Toney DO - Last Filed: 06/07/23 23:43> Physical Exam Const Vital Signs: 06/07/23 19:09 06/07/23 21:34 06/07/23 21:34 Temperature 98.1 F 97.4 F L 97.5 F L Temperature Source Temporal Oral Oral Pulse Rate 92 76 75 Respiratory Rate 15 19 H 19 H Blood Pressure 148/93 H 138/80 H 138/80 H Blood Pressure Mean 111 99 99 Pulse Ox 97 96 98 Oxygen Delivery Method Room Air Room Air Room Air MDM <MIA Hodge - Last Filed: 06/07/23 21:37> [facility] MDM Narrative Medical decision making narrative: Differential: Constipation, obstruction, diverticulitis Patient has history of remote gastric bypass in 2004. Reports 3 days of constipation and gradual onset abdominal pain and distention that started aroundnoon today. No vomiting. She appears uncomfortable but nontoxic. Vital signs stable. Normal cardiopulmonary exam. Abdomen is moderately distended and firm. Tender over the left side. No peritonitis. There was a delay in blood work due to inability to place IV access. Plan will be for labs and CT scan with oral and IV contrast. Lab Data Labs: Laboratory Results - last 24 hr 06/07/23 21:25 WBC 8.1 RBC 3.83 L Hgb 12.6 Hct 41.1 MCV 107.3 H MCH 32.9 H MCHC 30.7 L RDW Std Deviation 54.8 H RDW Coeff of Parris 13.7 Plt Count 248 MPV 12.5 H Immature Gran % (Auto) 0.200 Neut % (Auto) 74.9 H Lymph % (Auto) 14.2 L Powell % (Auto) 5.8 Eos % (Auto) 3.9 Baso % (Auto) 1.0 Absolute Neuts (auto) 6.0 Absolute Lymphs (auto) 1.14 Nucleated RBC % 0 Sodium 139 Potassium 4.6 Chloride 112 H Carbon Dioxide 20.0 L Anion Gap 7 BUN 87 H Creatinine 2.42 H Estim Creat Clear Calc 19.95 Est GFR (MDRD) Af Amer 25 L Est GFR (MDRD) Non-Af 20 L BUN/Creatinine Ratio 36.0 H Glucose 102 Calcium 9.3 Total Bilirubin 0.40 AST 23 ALT 23 Alkaline Phosphatase 82 Total Protein 7.6 Albumin 3.7 Globulin 3.9 Albumin/Globulin Ratio 0.9 Radiography Diagnostic Testing: Clinical Impression(s) from Imaging Studies Abdomen CT 06/07/23 19:29 IMPRESSION: 1. Suspect constipation with possible fecal impaction and moderate dilatation of the remainder of the colon. 2. Tiny nonobstructing left renal stone. Electronically Signed: Jae Carty MD at 23:06 EST , <Dr. Judson Toney, DO - Last Filed: 06/07/23 23:43> [facility] Narrative Medical decision making narrative: Differential: Constipation, obstruction, diverticulitis Patient has history of remote gastric bypass in 2004. Reports 3 days of constipation and gradual onset abdominal pain and distention that started aroundnoon today. No vomiting. She appears uncomfortable but nontoxic. Vital signs stable. Normal cardiopulmonary exam. Abdomen is moderately distended and firm. Tender over the left side. No peritonitis. There was a delay in blood work due to inability to place IV access. Plan will be for labs and CT scan with oral and IV contrast. CT scan of the abdomen pelvis revealed evidence of stool impaction. No definitive SBO. On reevaluation after morphine then 0.5 mg of dilaudid patient reported improvedpain. She reports went to the bathroom and had a bowel movement. She states this does not feel complete she is feels like she could still go a little bit. I did speak with the general surgeon on-call Dr. Thrasher who reviewed the patient's imaging and recommended using suppositories/enemas and admitting to medicine for observation. Pt was resuscited with 2L of NS. Given the patient's acute kidney injury, evidence of fecal impaction and constipation we will admit the patient to [facility] as a full admit. Discussed with Dr. Matthews. ED attending note: I evaluated the patient in conjunction with the CAREY. I agree with his/her statements and above findings. I have personally performed a face to face assessment of the patient and have reviewed the CAREY Note. I performed a substantive portion of the visit including all aspects of the following. I personally saw the patient performed chart review, physical exam, reviewed labs,imaging (if obtained), and formulated a treatment and management plan. This note was generated with QWiPS dictation software. It may contain incorrectwords, spelling, and punctuation that were not noted in review of the chart prior to signing. Lab Data Labs: Laboratory Results - last 24 hr 06/07/23 21:25 WBC 8.1 RBC 3.83 L Hgb 12.6 Hct 41.1 MCV 107.3 H MCH 32.9 H MCHC 30.7 L RDW Std Deviation 54.8 H RDW Coeff of Parris 13.7 Plt Count 248 MPV 12.5 H Immature Gran % (Auto) 0.200 Neut % (Auto) 74.9 H Lymph % (Auto) 14.2 L Powell % (Auto) 5.8 Eos % (Auto) 3.9 Baso % (Auto) 1.0 Absolute Neuts (auto) 6.0 Absolute Lymphs (auto) 1.14 Nucleated RBC % 0 Sodium 139 Potassium 4.6 Chloride 112 H Carbon Dioxide 20.0 L Anion Gap 7 BUN 87 H Creatinine 2.42 H Estim Creat Clear Calc 19.95 Est GFR (MDRD) Af Amer 25 L Est GFR (MDRD) Non-Af 20 L BUN/Creatinine Ratio 36.0 H Glucose 102 Calcium 9.3 Total Bilirubin 0.40 AST 23 ALT 23 Alkaline Phosphatase 82 Total Protein 7.6 Albumin 3.7 Globulin 3.9 Albumin/Globulin Ratio 0.9 Radiography Diagnostic Testing: Clinical Impression(s) from Imaging Studies Abdomen CT 06/07/23 19:29 IMPRESSION: 1. Suspect constipation with possible fecal impaction and moderate dilatation of the remainder of the colon. 2. Tiny nonobstructing left renal stone. Electronically Signed: Jae Carty MD at 23:06 EST , Discharge Plan Triage Chief Complaint: Abd Pain ED Midlevel Provider: Weston Delacruz ED Provider: Judson Toney Dx/Rx/DC Orders Clinical Impression: Acute kidney injury superimposed on chronic kidney disease, Constipation Prescriptions: No Action zinc 50 mg tablet 50 mg PO DAILY glucosamine 500 yo-rrnggigdn-oexumlis comp 400 mg-D3 667 unit-C-Mn cap 500-400-667 mg-mg-unit capsule 1 cap PO TID hydrocortisone-pramoxine 2.5-1 % (4g) cream 1 applic RC BID levothyroxine 125 mcg tablet 125 mcg PO DAILY Patient Comments: TAKE 1 TABLET BY MOUTH ONCE DAILY. TAKE ON EMPTY STOMACH. FOR THYROID. cyclobenzaprine 10 mg tablet 10 mg PO BID PRN (Reason: Muscle Spasm) calcium carbonate-vitamin D3 600 mg-10 mcg (400 unit) capsule 1 cap PO BID vitamin B complex Capsule 1 cap PO DAILY calcium acetate(phosphat bind) 667 mg capsule 667 mg PO TID cholecalciferol (vitamin D3) 25 mcg (1,000 unit) capsule 50 mcg PO DAILY vitamin E mixed 400 unit capsule 400 unit PO DAILY Mirena 20 mcg/24 hours (7 yrs) 52 mg intrauterine device 1 mcg intrauterine ONCE pyridoxine (vitamin B6) [Vitamin B-6] 100 mg tablet 100 mg PO DAILY ascorbate calcium (vitamin C) 500 mg tablet 500 mg PO DAILY acetaminophen 500 mg tablet 1,000 mg PO BID multivitamin Tablet 1 tab PO DAILY gabapentin 300 mg capsule 300 mg PO TID Patient Comments: TAKE ONE PILL BY MOUTH 3 TIMES PER DAY magnesium oxide 200 mg magnesium tablet 200 mg PO DAILY nitroglycerin 0.4 mg tablet, sublingual 0.4 mg sublingual Q5M PRN (Reason: chest pain) Qty: 30 1RF Rx Instructions: do not exceed 3 doses per episode furosemide [Lasix] 20 mg tablet 20 mg PO DAILY Qty: 90 3RF omeprazole 20 MG capsule 20 mg PO DAILY zolpidem 10 mg tablet 10 mg PO QHS Gemtesa 75 mg tablet 75 mg PO DAILY Patient Comments: TAKE 1 TABLET BY MOUTH EVERY DAY lisinopril 10 mg tablet 10 mg PO DAILY Patient Comments: per patient aspirin [Adult Aspirin Regimen] 81 mg tablet,delayed release (DR/EC) 81 mg PO DAILY Primary Care Provider: Miryam Orozco Referrals: Lizy Capone MD [Non-Staff] - What to do if you have Problems For any increased pain, shortness of breath, bleeding, nausea or vomiting, chestpain, or any unexpected problems, contact your Primary Care Provider. Call [facility] ([phone]) or report to the closest Emergency Room. Call 911 if necessary. 06/07/232136 <Electronically signed by Weston BELLAMY> Cosigner Signature (if applicable): 06/07/23 2343 <Electronically signed by Judson Toney DO> CC: BROOKLYN Orozco ~ Signed [facility] Work Phone: [phone] 523-138802-29-2024 Miscellaneous Notes* Telephone Encounter - Lora Valles LPN - 06/04/2023 1:40 PM EST Spoke with patient and updated her. Lora Valles LPN * Telephone Encounter - Rebekah Bobo APRN.DIGITAL DATA ANALYST - 06/04/2023 1:31 PM EST oarrs was checked- no medication discrepancy or aberrations noted Xanax sent Rebekah Bobo APRN.DIGITAL DATA ANALYST * Telephone Encounter - Jennifer De Leon - 06/04/2023 1:21 PM EST Patient would like a prescription for xanax called into pharmacy to take for RFA. Instructed patient to mixing picker tender and bring to appointment as it must be taken under the supervision of our clinical staff. Also instructed patient to arrive 45 minutes early to appointment and that drop hammer pile driver operator must stay for the entirety of the procedure. Routed to Rebekah to send in medication. Jennifer De Leon * Telephone Encounter - Jennifer De Leon - 06/04/2023 1:21 PM EST Procedure(s) being scheduled: 1.Are you diabetic No [...] Yes 9. Does this procedure require a drop hammer pile driver operator? Yes If yes, has patient been notified that a drop hammer pile driver operator is needed and must be present at [...] days prior to their first dose of theCOVID vaccine. They should not receive any procedure containing steroids in the time frame between their 1st and 2nd doses of the COVID vaccine. They should not receive a procedure containing steroids 14 days after their 2nd dose of the COVID vaccine.) Jennifer De Leon documented [facility] History of Present illness Narrative* Rebekah Bobo, NANCI.DIGITAL DATA ANALYST - 06/02/2023 10:15 AM EST VIRTUAL VISIT PROGRESS NOTE This is a virtual visit using Audio Only Visit. It required patient-provider interaction for the medical decision making as documented below. I have communicated my name and active licensure. The patient's identity and physical location wereverified at the time of this visit. Either the patient or their legal public health representative has been informed of the risks and benefits of -- and alternatives to -- treatment through a remote evaluation andconsents to proceed with the evaluation remotely. Mari Lopez is a 82 year old female seen for left shoulder pain, She had the left suprascapular nerve block on 05/18/[address] Delgado that has helped the pain here by 80%-90%. She feels very good today. She feels she has more ROM. She would like to pursue the RFA here. Ht 157.5 cm (5' 2) Wt 98.9 kg (218 lb) BMI 39.87 [...] CONDYLE&PLATU MEDIAL&LAT COMPARTMENTS 1990 bilateral total knee s([place]) ARTHRP KNE CONDYLE&PLATU MEDIAL&LAT COMPARTMENTS 10/24/04 bilateral total knee revisions DELIVERY ONLY , low cervical CHOLECYSTECTOMY COLONOSCOPY FLX DX W/COLLJ SPEC WHEN PFRMD 11/17/2017 Colonoscopy DEBRIDEMENT SUBCUTANEOUS TISSUE 20 SQ CM/< 02/17/07 LEFT LEG DEBRIDEMENT SUBCUTANEOUS TISSUE 20 SQ CM/< [id number] LEFT LEG DEBRIDEMENT SUBCUTANEOUS TISSUE 20 SQ CM/< [id number] LEFT LEG DEBRIDEMENT SUBCUTANEOUS TISSUE 20 SQ CM/< [id number] LEFT LEG DEBRIDEMENT SUBCUTANEOUS TISSUE 20 SQ CM/< [id number] LEFT LEG DEBRIDEMENT SUBCUTANEOUS TISSUE 20 SQ CM/< 03/03/07 LEFT LEG ESOPHAGOGASTRODUODENOSCOPY TRANSORAL DIAGNOSTIC 11/17/2017 EGD GASTRIC BYPASS 07/08 HEMORRHOIDECTOMY INTERNAL RUBBER BAND LIGATIONS HYSTEROSCOPY BX W/WO D&C 01/07/2018 PAST SURGICAL HISTORY OF 04/10/2016 [place] and new knee cap put in right [...] mg 24 hr tablet Take by mouth. Bdnmrxrtyli-Mcijjdtri-Ybc C-Mn (GLUCOSAMINE CHONDROITIN MAXSTR) 500-400 mg cap Take 1 capsule by mouth three times daily. COMPOUNDED PRESCRIPTION Stair lift DAILY-LUISITO tablet TAKE 1 TABLET BY MOUTH ONCE DAILY. epbqotm-dkanhhgxc-ttwauyc D3 (CALCIUM 500+D) 500 mg(1,250mg) -200 unit [...] OF SYSTEMS: GENERAL: no fever HEENT: denies JESSICA, change in hearing or vision, no other [...] which included preparing to see the patient, tnvo-bm-jgnf patient care, completing clinical documentation, and ordering medications, tests, orprocedures Rebekah Bobo APRN.CNP I have communicated my name and active licensure. The patient's identity and physical location wereverified at the time of this visit. Either the patient or their legal public health representative has been informed of the risks and benefits of -- and alternatives to -- treatment through a remote evaluation andconsents to proceed with the evaluation remotely. documented in this encounterC[facility]24 NoteHNO ID: [id number] Author: REBEKAH BOBO APRN.CNP Service: ? Author Type: Nurse Practitioner Type: [...] visit. Either the patient or their legal public health representative has been informed of the risks and benefits of -- and alternatives to -- treatment through a remote evaluation and consents to proceed with the evaluation remotely. Mari Lopez is a 82 year old female seen for left shoulder pain, 2-07/14 She had the left suprascapular nerve block on 05/18/[address] Delgado that has helped the pain here by 80%-90%. She feels very good today. She feels she has more ROM. She would like to pursue the RFA here. Ht 157.5 cm (5' 2) Wt 98.9 kg (218 lb) BMI 39.87 [...] and thrombophlebitis of femoral vein (deep) (superficial) ([facility]) Unspecified sleep apnea PAST SURGICAL HISTORY Procedure Laterality Date ANESTHESIA HERNIA REPAIR LOWER ABDOMEN NOS 04/2004,05/11 gortex put in on 05/11 then taken out06/08 ARTHRP KNE CONDYLEANDPLATU MEDIALANDLAT COMPARTMENTS 1990 bilateral total knee s([place]) ARTHRP KNE CONDYLEANDPLATU MEDIALANDLAT COMPARTMENTS 10/24/04 bilateral total knee revisions DELIVERY ONLY , low cervical CHOLECYSTECTOMY COLONOSCOPY FLX DX W/COLLJ SPEC WHEN PFRMD 11/17/2017 Colonoscopy DEBRIDEMENT SUBCUTANEOUS TISSUE 20 SQ CM/< 02/17/07 LEFT LEG DEBRIDEMENT SUBCUTANEOUS TISSUE 20 SQ CM/< [id number] LEFT LEG DEBRIDEMENT SUBCUTANEOUS TISSUE 20 SQ CM/< [id number] LEFT LEG DEBRIDEMENT SUBCUTANEOUS TISSUE 20 SQ CM/< [id number] LEFT LEG DEBRIDEMENT SUBCUTANEOUS TISSUE 20 SQ CM/< [id number] LEFT LEG DEBRIDEMENT SUBCUTANEOUS TISSUE 20 SQ CM/< 03/03/07 LEFT LEG ESOPHAGOGASTRODUODENOSCOPY TRANSORAL DIAGNOSTIC 11/17/2017 EGD GASTRIC BYPASS 07/08 HEMORRHOIDECTOMY INTERNAL RUBBER BAND LIGATIONS HYSTEROSCOPY BX W/WO SHEILA 01/07/2018 PAST SURGICAL HISTORY OF 04/10/2016 [place] and new knee cap put in right [...] mg 24 hr tablet Take by mouth. Ehupkxysodb-Psfryukhl-Spg C-Mn (GLUCOSAMINE CHONDROITIN MAXSTR) 500-400 mg cap Take 1 capsule by mouth three times daily. COMPOUNDED PRESCRIPTION Stair lift DAILY-LUISITO tablet TAKE 1 TABLET BY MOUTH ONCE DAILY. awmfxse-tkfsoaukw-lsmtioe D3 (CALCIUM 500+D) 500 mg(1,250m (more content not included)...[facility]02-27-2024 Instructions* Patient Instructions* Rebekah Bobo APRN.DIGITAL DATA ANALYST - 06/02/2023 7:01 AM EST Ice and heat as tolerated Activity as tolerated documented in this encounterCleveland [facility]24 Miscellaneous Notes* Telephone Encounter - Jorje Nagel LPN - 05/20/2023 1:34 PM EST Spoke with patient following up from procedure. Patient states they are doing well, no questions orconcerns at this time. Jorje Nagel LPN documented in this encounterCleveland Clinic [facility]02-12-2024 Instructions* Patient Instructions* Carolann Marx LPN - 05/18/2023 1:37 PM EST PROCEDURE DISCHARGE INSTRUCTIONS 05/18/2023 Mari Lopez 1940 Physician: Roque Delgado MD Procedure: Facet Joint Injection/Medial Branch Block Post Procedure Instructions: If sedation not given, no driving for 3 hours after the procedure., Perform activities that typically make you have pain and monitor your pain level during these activities for the next 3-4 hours., You may resume normal activities the day after the procedure, as tolerated., Apply cold compresses toinjection site if needed., If medically acceptable, take [...] emergency care and why. documented in this encounterCleveland Clinic [facility]02-12-2024 NoteHNO ID: [id number] Author: CAROLANN MARX LPN Service: ? Author [...] via ambulatory method. Patient left in good condition.[facility]02-12-2024 History of Present illness Narrative* Carolann Marx LPN - 05/18/2023 1:32 PM EST Order has been placed in the patient's [...] ambulatory method. Patient left in good condition. * Roque Delgado MD - 05/18/2023 1:14 PM EST [facility] Patient name: Mari Lopez Date of : 1940 Today's date: 05/18/2023 Purpose: Ultrasound-guided injection Surface Grinder Tender: Roque Delgado M.D., M.B.A Diagnosis: (M19.011, M19.012) Primary osteoarthritis of both shoulders (primary encounter diagnosis) Procedure: Suprascapular Nerve Block with steroid infiltration under ultrasound guidance LEFT-SIDED Injectate: A total of 5 ml volume was injected The injectate consisted of: 1 ml of Depo-Medrol (40mg/ml), The remainder consisting of 0.75% Bupivacaine Comments: None HPI: Mari Lopez is an 82 year old FEMALE who presents today, in pain, for the procedure noted above. Review of Systems: Pertinent Positives: MSK: pain in the region being treated Neuro: weakness or numbness in the region being treated (unless otherwise noted) Skin: Negative (No itching) Eyes: Negative (No blurred or double vision) Respiratory: Negative (No Cough, Ogesefzpc-dn-vvmzrs, Dyspnea on exertion, wheezing) Cardiovascular: Negative (No [...] CONDYLE&PLATU MEDIAL&LAT COMPARTMENTS 1990 bilateral total knee s([place]) ARTHRP KNE CONDYLE&PLATU MEDIAL&LAT COMPARTMENTS 10/24/04 bilateral total knee revisions DELIVERY ONLY , low cervical CHOLECYSTECTOMY COLONOSCOPY FLX DX W/COLLJ SPEC WHEN PFRMD 11/17/2017 Colonoscopy DEBRIDEMENT SUBCUTANEOUS TISSUE 20 SQ CM/< 02/17/07 LEFT LEG DEBRIDEMENT SUBCUTANEOUS TISSUE 20 SQ CM/< [id number] LEFT LEG DEBRIDEMENT SUBCUTANEOUS TISSUE 20 SQ CM/< [id number] LEFT LEG DEBRIDEMENT SUBCUTANEOUS TISSUE 20 SQ CM/< [id number] LEFT LEG DEBRIDEMENT SUBCUTANEOUS TISSUE 20 SQ CM/< [id number] LEFT LEG DEBRIDEMENT SUBCUTANEOUS TISSUE 20 SQ CM/< 03/03/07 LEFT LEG ESOPHAGOGASTRODUODENOSCOPY TRANSORAL DIAGNOSTIC 11/17/2017 EGD GASTRIC BYPASS 07/08 HEMORRHOIDECTOMY INTERNAL RUBBER BAND LIGATIONS HYSTEROSCOPY BX W/WO D&C 01/07/2018 PAST SURGICAL HISTORY OF 04/10/2016 [place] and new knee cap put in right [...] mg 24 hr tablet Take by mouth. Ssvcnwmjicm-Tvmeorpjs-Xre C-Mn (GLUCOSAMINE CHONDROITIN MAXSTR) 500-400 mg cap Take 1 capsule by mouth three times daily. COMPOUNDED PRESCRIPTION Stair lift DAILY-LUISITO tablet TAKE 1 TABLET BY MOUTH ONCE DAILY. wdsrcux-aqewrpnoq-bwwphmz D3 (CALCIUM 500+D) 500 mg(1,250mg) -200 unit [...] appropriate Assessment and Plan: As noted above [facility] protocol documentation / Pre-Procedure Checklist: Consent: Obtained [...] written consent to proceed and was transported intothe procedure room Surgical/Procedure pause or Time Out : Time Out was led by the physician in the procedure room, with the patient and all staff present andparticipating The following information was verified during the [...] site, a 22 gauge, 3.5 inch needle wasdirected into the above-mentioned target area utilizing real-time [...] to follow-up with the requesting physician. Roque Delgado MD [facility] * Rom Cano LPN - 05/18/2023 1:04 PM EST Review of Systems Constitutional: Negative for activity change, appetite change, chills and fever. Genitourinary: Negative for difficulty urinating. Musculoskeletal: Positive for arthralgias and gait problem. Negative for back pain, joint swelling,myalgias, neck pain and neck stiffness. Neurological: Negative for weakness, numbness and headaches. Psychiatric/Behavioral: Negative for dysphoric mood, sleep disturbance and suicidal ideas. The patient is not nervous/anxious. documented in this encounterCleveland [facility]02-12-2024 NoteHNO ID: [id number] Author: ROQUE DELGADO MD Service: ? Author Type: Physician Type: Progress Notes Filed: 05/18/2023 13:48 Note Text: [facility] Patient name: Mari Lopez Date of : 1940 Today's date: 05/18/2023 Purpose: Ultrasound-guided injection Surface Grinder Tender: Oumou Mathias M.D.BLuis FernandoA Diagnosis: (M19.011, M19.012) Primary osteoarthritis of both shoulders (primary encounter diagnosis) Procedure: Suprascapular Nerve Block with steroid infiltration under ultrasound guidance LEFT-SIDED Injectate: A total of 5 ml volume was injected The injectate consisted of: 1 ml of Depo-Medrol (40mg/ml), The remainder consisting of 0.75% Bupivacaine Comments: None HPI: Mari Lopez is an 82 year old FEMALE who presents today, in pain, for the procedure noted above. Review of Systems: Pertinent Positives: MSK: pain in the region being treated Neuro: weakness or numbness in the region being treated (unless otherwise noted) Skin: Negative (No itching) Eyes: Negative (No blurred or double vision) Respiratory: Negative (No Cough, Tadpzjafk-vq-fwtcng, Dyspnea on exertion, wheezing) Cardiovascular: Negative (No [...] and thrombophlebitis of femoral vein (deep) (superficial) ([facility]) Unspecified sleep apnea PAST SURGICAL HISTORY Procedure Laterality Date ANESTHESIA HERNIA REPAIR LOWER ABDOMEN NOS 04/2004,05/11 gortex put in on 05/11 then taken out06/08 ARTHRP KNE CONDYLEANDPLATU MEDIALANDLAT COMPARTMENTS 1990 bilateral total knee s([place]) ARTHRP KNE CONDYLEANDPLATU MEDIALANDLAT COMPARTMENTS 10/24/04 bilateral total knee revisions DELIVERY ONLY , low cervical CHOLECYSTECTOMY COLONOSCOPY FLX DX W/COLLJ SPEC WHEN PFRMD 11/17/2017 Colonoscopy DEBRIDEMENT SUBCUTANEOUS TISSUE 20 SQ CM/< 02/17/07 LEFT LEG DEBRIDEMENT SUBCUTANEOUS TISSUE 20 SQ CM/< [id number] LEFT LEG DEBRIDEMENT SUBCUTANEOUS TISSUE 20 SQ CM/< [id number] LEFT LEG DEBRIDEMENT SUBCUTANEOUS TISSUE 20 SQ CM/< [id number] LEFT LEG DEBRIDEMENT SUBCUTANEOUS TISSUE 20 SQ CM/< [id number] LEFT LEG DEBRIDEMENT SUBCUTANEOUS TISSUE 20 SQ CM/< 03/03/07 LEFT LEG ESOPHAGOGASTRODUODENOSCOPY TRANSORAL DIAGNOSTIC 11/17/2017 EGD GASTRIC BYPASS 07/08 HEMORRHOIDECTOMY INTERNAL RUBBER BAND LIGATIONS HYSTEROSCOPY BX W/WO DANDC 01/07/2018 PAST SURGICAL HISTORY OF 04/10/2016 [place] and new knee cap put in right [...] mg 24 hr (more content not included)... [facility] Nurse Note* Amada Velasco LPN - 05/18/2023 1:08 PM EST Procedure to be performed: Unilateral Left SUPRASCAPULAR NERVE BLOCK Patient was wheeled on stretcher from pre op bay to procedure room and assisted onto the procedure tablePatient s procedure was performed in an [facility] Procedure room. Pause completed at [...] allergies Procedure Start: 1324 Procedure End: 1326 * Rom Cano LPN - 05/18/2023 1:02 PM EST Human Resource Manager's Name: ALEX Are you on a blood thinner: N [...] to receive one? N documented in this encounterC[facility]02-12-2024 NoteHNO ID: [id number] Author: ROM CANO LPN Service: ? Author Type: LICENSED [...] and suicidal ideas. The patient is not nervous/anxious.[facility] 04-16-2023 NoteHNO ID: [id number] Author: KALEIGH RODNEY MA Service: ? Author Type: Front Facer Type: Progress Notes Filed: 04/16/2023 08:43 Note [...] and suicidal ideas. The patient is not nervous/anxious.[facility] 03-31-2023 History of Present illness Narrative* Latia Weston, RT(R) - 03/31/2023 11:10 AM EST Radiology Service Progress Note PATIENT NAME: Mari Lopez DATE OF SERVICE: March 31, 2023 TIME: 11:25 AM PATIENT IDENTITY VERIFICATION COMPLETED USING TWO (2) IDENTIFIERS: Name and Date of confirmedby patient verbally. FALL SCREENING: Has the patient [...] RT Mina(R) March 31, 2023 11:25 AM documented in this encounterCleveland [facility]12-26-2023 NoteHNO ID: [id number] Author: ROQUE DELGADO MD Service: ? Author Type: Physician Type: Progress Notes Filed: 04/16/2023 08:43 Note Text: [facility] Today's Date: 04/16/2023 Last visit: 01/15/2023 03/02/2023 Name: Mari Lopez : 1940 Purpose: Follow-up Patient Evaluation - [...] back pain with sciatica, Pertinent Past Surgeries: [place] and new knee cap in right leg (2016), Bilat total knee revisions (2004), Bilat TKA (1990), 03/02/2023 - Mari Lopez is a 82 year old female seen for shoulder pain, pain score 1-3/10. She had the bilateral GHJ USI with Dr. Delgado on 02/16/2023 that has helped the pain here by 50%. She is able to do a little more since the injection. She is even sleeping better. She is seeing Dr. Delgado in the near future to discuss possible SPR. PLAN: She is doing well from the steroid injection for the GHJ. We could consider SPR but she would need a diagnostic suprascapular block first. She is going to discuss this further with Dr. Delgado in a few weeks Plan at last visit: aMri Lopez would benefit from the following to decrease [...] current dose Flexeril 10mg TID PRN Functional Scientologist: No changes-continue current regimen Additional Studies: X-ray [...] - Initial HPI (Obtained by Avis Marrufo APRN.DIGITAL DATA ANALYST ). From 03/2022 - She previously inquired [...] chief complaint(s)): Neuropathics: Ne (more content not included)...[facility] 03-02-2023 History of Present illness Narrative* Rebekah Bobo, MARKET MANAGER.DIGITAL DATA ANALYST - 03/02/2023 3:45 PM EST VIRTUAL VISIT PROGRESS NOTE This is a virtual visit using Audio Only Visit. It required patient-provider interaction for the medical decision making as documented below. I have communicated my name and active licensure. The patient's identity and physical location wereverified at the time of this visit. Either the patient or their legal public health representative has been informed of the risks and benefits of -- and alternatives to -- treatment through a remote evaluation andconsents to proceed with the evaluation remotely. Mari Lopez is a 82 year old female seen for shoulder pain, pain score 1-3/10 She had the bilateral GHJ USI with Dr. Delgado on 02/16/2023 that has helped the pain here by 50%. She is able to do a little more since the injection. She is even sleeping better. She is seeing Dr. Delgado in the near future to discuss possible SPR. Ht 157.5 cm (5' 2) Wt 104.3 kg (230 lb) BMI 42.07 [...] CONDYLE&PLATU MEDIAL&LAT COMPARTMENTS 1990 bilateral total knee s([place]) ARTHRP KNE CONDYLE&PLATU MEDIAL&LAT COMPARTMENTS 10/24/04 bilateral total knee revisions DELIVERY ONLY , low cervical CHOLECYSTECTOMY COLONOSCOPY FLX DX W/COLLJ SPEC WHEN PFRMD 11/17/2017 Colonoscopy DEBRIDEMENT SUBCUTANEOUS TISSUE 20 SQ CM/< 02/17/07 LEFT LEG DEBRIDEMENT SUBCUTANEOUS TISSUE 20 SQ CM/< [id number] LEFT LEG DEBRIDEMENT SUBCUTANEOUS TISSUE 20 SQ CM/< [id number] LEFT LEG DEBRIDEMENT SUBCUTANEOUS TISSUE 20 SQ CM/< [id number] LEFT LEG DEBRIDEMENT SUBCUTANEOUS TISSUE 20 SQ CM/< [id number] LEFT LEG DEBRIDEMENT SUBCUTANEOUS TISSUE 20 SQ CM/< 03/03/07 LEFT LEG ESOPHAGOGASTRODUODENOSCOPY TRANSORAL DIAGNOSTIC 11/17/2017 EGD GASTRIC BYPASS 07/08 HEMORRHOIDECTOMY INTERNAL RUBBER BAND LIGATIONS HYSTEROSCOPY BX W/WO D&C 01/07/2018 PAST SURGICAL HISTORY OF 04/10/2016 [place] and new knee cap put in right [...] mg 24 hr tablet Take by mouth. Mrtcxzhccwq-Aeedpfefw-Yji C-Mn (GLUCOSAMINE CHONDROITIN MAXSTR) 500-400 mg cap Take 1 capsule by mouth three times daily. COMPOUNDED PRESCRIPTION Stair lift DAILY-LUISITO tablet TAKE 1 TABLET BY MOUTH ONCE DAILY. fcjqoes-oqujtfdzq-ybjcfqe D3 (CALCIUM 500+D) 500 mg(1,250mg) -200 unit [...] going to discuss this further with Dr. Delgado in a few weeks Patient Instructions Ice and heat as tolerated Activity as tolerated I spent a total of 15 minutes on the date of the service which included preparing to see the patient, xmjk-vs-ipqe patient care, and completing clinical documentation Rebekah Bobo APRN.CNP I have communicated my name and active licensure. The patient's identity and physical location wereverified at the time of this visit. Either the patient or their legal public health representative has been informed of the risks and benefits of -- and alternatives to -- treatment through a remote evaluation andconsents to proceed with the evaluation remotely. documented in this encounterCleveland [facility]11-27-2023 NoteHNO ID: [id number] Author: Rebekah Bobo APRN.CNP Service: ? Author Type: Nurse Practitioner Type: [...] visit. Either the patient or their legal public health representative has been informed of the risks and benefits of -- and alternatives to -- treatment through a remote evaluation and consents to proceed with the evaluation remotely. Mari Lopez is a 82 year old female seen for shoulder pain, pain score 1-3/10 She had the bilateral GHJ USI with Dr. Delgado on 02/16/2023 that has helped the pain here by 50%. She is able to do a little more since the injection. She is even sleeping better. She is seeing Dr. Delgado in the near future to discuss possible SPR. Ht 157.5 cm (5' 2) Wt 104.3 kg (230 lb) BMI 42.07 [...] CONDYLEANDPLATU MEDIALANDLAT COMPARTMENTS 1990 bilateral total knee s([place]) ARTHRP KNE CONDYLEANDPLATU MEDIALANDLAT COMPARTMENTS 10/24/04 bilateral total knee revisions DELIVERY ONLY , low cervical CHOLECYSTECTOMY COLONOSCOPY FLX DX W/COLLJ SPEC WHEN PFRMD 11/17/2017 Colonoscopy DEBRIDEMENT SUBCUTANEOUS TISSUE 20 SQ CM/< 02/17/07 LEFT LEG DEBRIDEMENT SUBCUTANEOUS TISSUE 20 SQ CM/< [id number] LEFT LEG DEBRIDEMENT SUBCUTANEOUS TISSUE 20 SQ CM/< [id number] LEFT LEG DEBRIDEMENT SUBCUTANEOUS TISSUE 20 SQ CM/< [id number] LEFT LEG DEBRIDEMENT SUBCUTANEOUS TISSUE 20 SQ CM/< [id number] LEFT LEG DEBRIDEMENT SUBCUTANEOUS TISSUE 20 SQ CM/< 03/03/07 LEFT LEG ESOPHAGOGASTRODUODENOSCOPY TRANSORAL DIAGNOSTIC 11/17/2017 EGD GASTRIC BYPASS 07/08 HEMORRHOIDECTOMY INTERNAL RUBBER BAND LIGATIONS HYSTEROSCOPY BX W/WO DANDC 01/07/2018 PAST SURGICAL HISTORY OF 04/10/2016 [place] and new knee cap put in right [...] mg 24 hr tablet Take by mouth. Direxfmjerz-Suwmgjwbr-Myp C-Mn (GLUCOSAMINE CHONDROITIN MAXSTR) 500-400 mg cap Take 1 capsule by mouth three times daily. COMPOUNDED PRESCRIPTION Stair lift DAILY-LUISITO tablet TAKE 1 TABLET BY MOUTH ONCE DAILY. drkwgof-zpwseqbew-cczejve D3 (CALCIUM 500+D) 500 mg(1,250mg) -200 unit per tablet Take 1 tablet by mouth twice daily with meals. vitamin b complex (B COMPLETE) tab Take 1 tablet by mouth once daily. hydrocortisone (ANUSOL-HC) 2.5 % rectal cream 1 application by RECTAL route twice daily. (more content not included)...[facility] 03-02-2023 Instructions* Patient Instructions* Rebekah Bobo APRN.CNP - 03/02/2023 6:59 AM EST Ice and heat as tolerated Activity as tolerated documented in this encounterCleveland Clinic [facility]11-13-2023 Nurse Note* Rom Cano LPN - 02/16/2023 11:59 AM EST Order has been placed in the patient's [...] ambulatory method. Patient left in good condition. * Amada Velasco LPN - 02/16/2023 11:15 AM EST Procedure to be performed: BILATERAL GLENOHUMERAL JOINT INJECTION Patient was wheeled on stretcher from pre op bay to procedure room and assisted onto the procedure tablePatient s procedure was performed in an [facility] Procedure room. Pause completed at [...] allergies Procedure Start: 1149 Procedure End: 1157 * Octavio Robbnis LPN - 02/16/2023 11:04 AM EST Human Resource Manager's Name: N/A Are you on a blood [...] to receive one? n documented in this encounterCleveland Clinic [facility]11-13-2023 Instructions* Patient Instructions* Rom Cano LPN - 02/16/2023 11:49 AM EST PROCEDURE DISCHARGE INSTRUCTIONS 02/16/2023 Mari Garrett John 1940 Physician: Roque Delgado MD Procedure: Other: Glenohumeral joint injection Post Procedure Instructions: Rest the day of the procedure., You may resume normal activities the day after the procedure, as tolerated., Pain should gradually subside over the next 2-3 weeks., Avoid movements that may aggravatepain., Apply cold compresses to injection site if needed., If medically acceptable, take over the counter anti- inflammatories such as ibuprofen or Aleve if needed [...] emergency care and why. documented in this encounterCleveland Clinic [facility]11-13-2023 NoteHNO ID: [id number] Author: Octavio Robbins LPN Service: ? Author [...] and suicidal ideas. The patient is not nervous/anxious.[facility]11-13-20[facility] History of Present illness Narrative* Octavio Robbins LPN - 02/16/2023 11:10 AM EST Review of Systems Constitutional: Negative for activity change, chills, fever and unexpected weight change. Gastrointestinal: Negative for bowel retention or incontinence Genitourinary: Negative for difficulty urinating. Negative for bladder retention or incontinence Musculoskeletal: Positive for arthralgias, gait problem and joint swelling. Negative for back pain,myalgias, neck pain and neck stiffness. Neurological: Negative for weakness, numbness and headaches. Psychiatric/Behavioral: Positive for sleep disturbance. Negative for dysphoric mood and suicidal ideas. The patient is not nervous/anxious. * Roque Delgado MD - 02/16/2023 10:45 AM EST [facility] Date: 02/16/2023 Patient name: Mari Lopez Physician performing procedure: Roque Delgado M.D., M.B.A. Diagnosis: (M19.011, M19.012) Primary osteoarthritis [...] today's procedure: as per nursing report HPI: Mari Lopez is an 82 year old FEMALE who presents today, in pain, for the procedure noted above. Review of Systems: Pertinent Positives: MSK: pain in the region being treated Neuro: no weakness or numbness in the region being treated Skin: Negative (No itching) Eyes: Negative (No blurred or double vision) Respiratory: Negative (No Cough, Srwlzxtff-vh-kvmdmm, Dyspnea on exertion, wheezing) Cardiovascular: Negative (No [...] and thrombophlebitis of femoral vein (deep) (superficial) ([facility]) Unspecified sleep apnea PAST SURGICAL HISTORY Procedure Laterality Date ANESTHESIA HERNIA REPAIR LOWER ABDOMEN NOS 04/2004,05/11 gortex put in on 05/11 then taken out06/08 ARTHRP KNE CONDYLE&PLATU MEDIAL&LAT COMPARTMENTS 1990 bilateral total knee s([place]) ARTHRP KNE CONDYLE&PLATU MEDIAL&LAT COMPARTMENTS 10/24/04 bilateral total knee revisions DELIVERY ONLY , low cervical CHOLECYSTECTOMY COLONOSCOPY FLX DX W/COLLJ SPEC WHEN PFRMD 11/17/2017 Colonoscopy DEBRIDEMENT SUBCUTANEOUS TISSUE 20 SQ CM/< 02/17/07 LEFT LEG DEBRIDEMENT SUBCUTANEOUS TISSUE 20 SQ CM/< [id number] LEFT LEG DEBRIDEMENT SUBCUTANEOUS TISSUE 20 SQ CM/< [id number] LEFT LEG DEBRIDEMENT SUBCUTANEOUS TISSUE 20 SQ CM/< [id number] LEFT LEG DEBRIDEMENT SUBCUTANEOUS TISSUE 20 SQ CM/< [id number] LEFT LEG DEBRIDEMENT SUBCUTANEOUS TISSUE 20 SQ CM/< 03/03/07 LEFT LEG ESOPHAGOGASTRODUODENOSCOPY TRANSORAL DIAGNOSTIC 11/17/2017 EGD GASTRIC BYPASS 07/08 HEMORRHOIDECTOMY INTERNAL RUBBER BAND LIGATIONS HYSTEROSCOPY BX W/WO D&C 01/07/2018 PAST SURGICAL HISTORY OF 04/10/2016 [place] and new knee cap put in right [...] mg 24 hr tablet Take by mouth. Synqfqwgwcp-Pbuttrejx-Alt C-Mn (GLUCOSAMINE CHONDROITIN MAXSTR) 500-400 mg cap Take 1 capsule by mouth three times daily. COMPOUNDED PRESCRIPTION Stair lift DAILY-LUISITO tablet TAKE 1 TABLET BY MOUTH ONCE DAILY. mpcofwo-wndlxizcg-nhebgqx D3 (CALCIUM 500+D) 500 mg(1,250mg) -200 unit [...] appropriate Assessment and Plan: As noted above [place] protocol documentation / Pre-Procedure Checklist: Consent: Obtained [...] written consent to proceed and was transported intothe procedure room Surgical/Procedure pause or Time Out : Time Out was led by the physician in the procedure room, with the patient and all staff present andparticipating The following information was verified during the Time Out process: Patient name, patient date of , procedure site (marked), laterality, anticoagulants and allergies Procedure: The patient was prepped and draped in a sterile fashion in the supine position, with theforearm supinated and at the patient's side, after informed consent was signed and all patient questions were answered including the risks, benefits, alternative treatment options, and prognosis. Therisks are as mentioned above. A single contrast technique was used. After preliminary fluoroscopic images of the shoulder were obtained, the glenohumeral joint was localized. A 25 gauge, 1.5 inch needle was used to anesthetize the skin with 3-5 cc of 1% Lidocaine. A 22 gauge, 3.5 inch needle was inserted toward the superior 1/3of the humeral head at the intersection point of lines drawn horizontally from the coracoid processand vertically from the AC joint. 3-5cc of contrast was injected while observing the flow of the contrast, which obtained an excellent outline of the glenohumeral joint. The needle was withdrawn, andthe patient was asked to perform mild exercises [...] instructions was offered to the patient. Roque Delgado MD, MBA Pain Management [facility] documented in this encounterCleveland Clinic [facility]11-13-2023 NoteHNO ID: [id number] Author: Roque Delgado MD Service: ? Author Type: Physician Type: Progress Notes Filed: 02/16/2023 12:55 PM Note Text: [facility] Date: 02/16/2023 Patient name: Mari Lopez Physician performing procedure: Roque Delgado M.D., M.B.A. Diagnosis: (M19.011, M19.012) Primary osteoarthritis [...] today's procedure: as per nursing report HPI: Mari Lopez is an 82 year old FEMALE who presents today, in pain, for the procedure noted above. Review of Systems: Pertinent Positives: MSK: pain in the region being treated Neuro: no weakness or numbness in the region being treated Skin: Negative (No itching) Eyes: Negative (No blurred or double vision) Respiratory: Negative (No Cough, Xjsirimto-pp-tszbiq, Dyspnea on exertion, wheezing) Cardiovascular: Negative (No [...] and thrombophlebitis of femoral vein (deep) (superficial) ([facility]) Unspecified sleep apnea PAST SURGICAL HISTORY Procedure Laterality Date ANESTHESIA HERNIA REPAIR LOWER ABDOMEN NOS 04/2004,05/11 gortex put in on 05/11 then taken out06/08 ARTHRP KNE CONDYLEANDPLATU MEDIALANDLAT COMPARTMENTS 1990 bilateral total knee s([place]) ARTHRP KNE CONDYLEANDPLATU MEDIALANDLAT COMPARTMENTS 10/24/04 bilateral total knee revisions DELIVERY ONLY , low cervical CHOLECYSTECTOMY COLONOSCOPY FLX DX W/COLLJ SPEC WHEN PFRMD 11/17/2017 Colonoscopy DEBRIDEMENT SUBCUTANEOUS TISSUE 20 SQ CM/< 02/17/07 LEFT LEG DEBRIDEMENT SUBCUTANEOUS TISSUE 20 SQ CM/< [id number] LEFT LEG DEBRIDEMENT SUBCUTANEOUS TISSUE 20 SQ CM/< [id number] LEFT LEG DEBRIDEMENT SUBCUTANEOUS TISSUE 20 SQ CM/< [id number] LEFT LEG DEBRIDEMENT SUBCUTANEOUS TISSUE 20 SQ CM/< [id number] LEFT LEG DEBRIDEMENT SUBCUTANEOUS TISSUE 20 SQ CM/< 03/03/07 LEFT LEG ESOPHAGOGASTRODUODENOSCOPY TRANSORAL DIAGNOSTIC 11/17/2017 EGD GASTRIC BYPASS 07/08 HEMORRHOIDECTOMY INTERNAL RUBBER BAND LIGATIONS HYSTEROSCOPY BX W/WO DANDC 01/07/2018 PAST SURGICAL HISTORY OF 04/10/2016 Tico and new knee cap put in right [...] Take by mouth. Glucosamine-Chondroit (more content not included)...[facility] 01-15-2023 History of Present illness Narrative* Allison Garcia RT(R) - 01/15/2023 9:20 AM EDT Radiology Service Progress Note PATIENT NAME: Mari Lopez DATE OF SERVICE: January 15, 2023 TIME: 11:24 AM PATIENT IDENTITY VERIFICATION COMPLETED USING TWO (2) IDENTIFIERS: Name and Date of confirmedby patient verbally. FALL SCREENING: Has the patient had 2 falls in the last year or 1 fall with injury or currently using an Ambulatory Assistive Device (Walker, Cane, Wheelchair, Crutches, etc.)? No PATIENT GENDER DATA: Female. status: : No status: NO. PATIENT RELEVANT IMPLANT DATA REVIEWED: Not Applicable RADIOLOGY DEPARTMENT: General X-ray: Exam(s) Completed: Upper Extremity X- Ray(s): Shoulder, AP / TRUE AP bilateral PERIPHERAL IV DATA: Not applicable SIGNED BY: RT Eboni(R) January 15, 2023 11:24 AM documented in this encounterCleveland Clinic [facility]10-12-2023 Miscellaneous Notes* Telephone Encounter - Jennifer De Leon - 01/15/2023 9:00 AM EDT Procedure(s) being scheduled: 1.Are you diabetic No [...] No 9. Does this procedure require a drop hammer pile driver operator? No If yes, has patient been notified that a drop hammer pile driver operator is needed and must be present at [...] days prior to their first dose of theCOVID vaccine. They should not receive any procedure containing steroids in the time frame between their 1st and 2nd doses of the COVID vaccine. They should not receive a procedure containing steroids 14 days after their 2nd dose of the COVID vaccine.) Jennifer De Leon documented in this encounterCleveland Clinic [facility]10-12-2023 NoteHNO ID: [id number] Author: Kerrie Guthrie LPN Service: ? Author [...] and suicidal ideas. The patient is not nervous/anxious.[facility]10-12-2023 History of Present illness Narrative* Kerrie Guthrie LPN - 01/15/2023 8:16 AM EDT Review of Systems Constitutional: Negative for activity change, chills, fever and unexpected weight change. Gastrointestinal: Negative for bowel retention or incontinence Genitourinary: Negative for difficulty urinating. Negative for bladder retention or incontinence Musculoskeletal: Positive for arthralgias, back pain and joint swelling. Negative for gait problem,myalgias, neck pain and neck stiffness. Neurological: Negative for weakness, numbness and headaches. Psychiatric/Behavioral: Negative for dysphoric mood, sleep disturbance and suicidal ideas. The patient is not nervous/anxious. * Roque Delgado MD - 01/14/2023 3:37 PM EDT Images from the original note were not included. [facility] [place] [facility] Name: Mari Lopez : 1940 Purpose: 3-month follow-up Today's Date: 01/15/2023 Last Visit: 10/16/2022 Chief complaint: Thoracic and low back Pain Mari Lopez is an established patient, returning today for [...] she works out, lifts heavy groceries, or usesher arms to support herself when ascending stairs. [...] All prescriptions have been APPROPRIATELY filled. No suspiciousactivity was identified. On 01/15/2023 by MD Eliazar [...] the lower lumbar spine. There is a tico in the visualized mid femoral shaft on right side. MRI Thoracic/Lumbar Spine 04/2022 THORACIC: Counting reference: Craniocervical and lumbosacral junctions. For the purposes of this report, L4-5is considered the level of the iliac crest and assume there are 5 lumbar-type vertebrae. Anatomic variant: None. Localizer images: Degenerative changes in bilateral shoulders. Bilateral renal cysts. Alignment: Exaggerated thoracic kyphosis. Cord: The thoracic spinal cord is within normal limits of signal intensity and morphology. Bone marrow signal/fracture: Scattered T2 and T1 hyperintense subcentimeter intervertebral lesions,likely hemangiomas. Multilevel eccentric anterior bridging osteophytes, compatible with DISH. No evidence of pathologic marrow infiltration. No evidence of prior fracture. Thoracic soft tissues: The paraspinal soft tissues are within normal limits. Canal and foramina: Facet arthrosis and ligamentum flavum thickening causing minimal left-sided T9-T10 neuroforamina and T10-T11 minimal left-sided neural foraminal narrowing. Otherwise, the thoraciccanal and foramina are patent within the constraints of the study. LUMBAR: Counting reference: Craniocervical and lumbosacral junctions. For the purposes of this report, L4-5is considered the level of the iliac crest [...] causing mild to moderate left-sided neural foraminal narrowingand mild right-sided neural foraminal narrowing. Spinal canal is patent. Sacrum and iliac wings: The visualized sacrum and iliac wings are within normal limits. The presacral soft tissues are normal in appearance. Multilevel lumbar spondylosisas outlined. Spinal canal stenosis is worst at L4- L5 causing (mild to moderate). Foraminal stenosis is [...] bony destructive process. Lumbar: There are five gsq-viw-lbrviyk lumbar vertebrae. No acute fracture or subluxations [...] 80' left) Special Tests: painful (positive) [place] Clemens'breanne LUMBAR MUSCULOSKELETAL/NEURO EXAM Inspection: - Symmetric without [...] presents with complaint(s) of thoracic, low back andBL flank pain. Reports her low back pain has improved significantly after lumbar RFA. She continue to report bilateral flank pain. 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 She has mild bilateral lumbar paraspinal tenderness with some triggering. Trigger point injection did not help. Reports no SE with her gabapentin, finds this is very helpful. SPRINT PNS is helping tremendously, 100% relief of pain. Mari Lopez would benefit from the following to decrease [...] current dose Flexeril 10mg TID PRN Functional Scientologist: No changes-continue current regimen Additional Studies: X-ray Bilat Shoulders Referrals: none Additional: TBD depending on her response to the above Patient is happy and agreeable with this plan. All questions were answered and patient verbalized understanding. Depending on response to the above plan, consider: Suprascapular N. Block, SPRINT PNS Follow-up: 2 months (CAREY or Physician) Attribution: In addition to reviewing the information noted above, some elements copied from my most recent clinical note(s), including the physical exam (completed in entirety today), and the impression and plan sections, have been updated where appropriate. All reflect current medical decision making from today's date. Roque Delgado MD Pain Management [facility] documented in this encounterCleveland Clinic [facility]10-11-2023 NoteHNO ID: [id number] Author: Roque Delgado MD Service: ? Author Type: Physician Type: Progress Notes Filed: 01/15/2023 8:58 AM Note Text: [facility] Name: Mari Lopez : 1940 Purpose: 3-month follow-up Today's Date: 01/15/2023 Last Visit: 10/16/2022 Chief complaint: Thoracic and low back Pain Mari Lopez is an established patient, returning today for [...] moderately severe depression, (20-27) severe depression [facility]iance[facility] checked and validated. All [...] the lower lumbar spine. There is a tico in the visualized mid femoral shaft on [...] foraminal narrowing. Otherwise, the (more content not included)...[facility]09-20-2023 Miscellaneous Notes* Telephone Encounter - Miryam Orozco APRN.CNP - 12/24/2022 9:34 AM EDT Face sheet, consult, and last OV notes faxed to Dr. Gilmore's office in [place]. Miryam Orozco APRN.CNP * Telephone Encounter - Minna Blue LPN - 12/24/2022 9:31 AM EDT Patient notified of results, verbalizes understanding of instructions. Pt stated she would like to see Dr. Albrecht. Minna Blue LPN * Telephone Encounter - Miryam Orozco APRN.CNP - 12/24/2022 7:51 AM EDT Can you please call the patient and let her know I reviewed her lab results. Kidney function has decreased significantly. I would recommend that she stop taking Lasix at this time. I know she was following with nephrology, Dr. Acosta, however if she would like to establish care with a new health and fitness instructor I would recommend [facility], Dr. Gilmore. Please let me know what she prefers. If she would like we can recheck kidney function in 2 to 4 weeks after stopping Lasix. Thank you. Miryam Orozco APRN.CNP documented in this encounterCleveland Clinic [facility]09-18-2023 Instructions* Patient Instructions* Miryam Orozco APRN.CNP - 12/22/2022 9:15 AM EDT Get labs completed Stay well hydrated. Continue to take all medication as prescribed. Continue at home exercises at home for shoulder pain, any worsening symptoms contact the office. Keep up coming appointment Dr. Delgado. Elevate the legs when possible. Follow up in 3 months or sooner pending test results. documented in this encounterCleveland Clinic [facility]09-18-2023 History of Present illness Narrative* Miryam Orozco APRN.CJ - 12/22/2022 9:00 AM EDT This is a 82 year old female who presents today with: Patient presents with: Follow Up: 3 month follow up HISTORY OF PRESENT ILLNESS: Mari Lopez is a 82 year old female. Patient presents with: Follow Up: 3 month follow up 3 month follow up. History of incontinence, Following with Dr. Hernandez (urology). Refers she started a new medication,Gemtesa 75 mg daily, which has been helpful. Cystoscopy normal. Has bathroom schedule to empty bladder. Chronic back pain: Following with pain management, Dr. Delgado, Had SPR device placement in june. Backpain is gone since getting the deviced placed. Follow up next week. Device removed In October. Follow up in January. Knee Pain: Using Voltaren gel as needed. Left Shoulder: Has been having ongoing pain for about 5-6 months. Pain is constant. Has been working on at home exercises. LLE: Lasix 40mg for Lasix daily, following with Nephrology, Dr. Acosta [facility]. Had decreased GFR in , Following up every 6 months. HTN: Taking [...] CONDYLE&PLATU MEDIAL&LAT COMPARTMENTS 1990 bilateral total knee s([place]) ARTHRP KNE CONDYLE&PLATU MEDIAL&LAT COMPARTMENTS 10/24/04 bilateral total knee revisions DELIVERY ONLY , low cervical CHOLECYSTECTOMY COLONOSCOPY FLX DX W/COLLJ SPEC WHEN PFRMD 11/17/2017 Colonoscopy DEBRIDEMENT SUBCUTANEOUS TISSUE 20 SQ CM/< 02/17/07 LEFT LEG DEBRIDEMENT SUBCUTANEOUS TISSUE 20 SQ CM/< [id number] LEFT LEG DEBRIDEMENT SUBCUTANEOUS TISSUE 20 SQ CM/< [id number] LEFT LEG DEBRIDEMENT SUBCUTANEOUS TISSUE 20 SQ CM/< [id number] LEFT LEG DEBRIDEMENT SUBCUTANEOUS TISSUE 20 SQ CM/< [id number] LEFT LEG DEBRIDEMENT SUBCUTANEOUS TISSUE 20 SQ CM/< 03/03/07 LEFT LEG ESOPHAGOGASTRODUODENOSCOPY TRANSORAL DIAGNOSTIC 11/17/2017 EGD GASTRIC BYPASS 07/08 HEMORRHOIDECTOMY INTERNAL RUBBER BAND LIGATIONS HYSTEROSCOPY BX W/WO D&C 01/07/2018 PAST SURGICAL HISTORY OF 04/10/2016 [place]ico and new knee cap put in right [...] Take 40 mg by mouth once daily.) Pxpdyxdygpm-Wezrpiwcy-Pef C-Mn (GLUCOSAMINE CHONDROITIN MAXSTR) 500-400 mg cap Take 1 capsule by mouth three times daily. COMPOUNDED PRESCRIPTION Stair lift DAILY-LUISITO tablet TAKE 1 TABLET BY MOUTH ONCE DAILY. sxmovti-kvzpfrgky-ztkkbzc D3 (CALCIUM 500+D) 500 mg(1,250mg) -200 unit [...] - Stable, keep scheduled appointments with Dr. Delgado, pain management. 3. BENIGN HYPERTENSION(aka HTN) - [...] were discussed and patient voices understanding. Miryam Orozco APRN.DIGITAL DATA ANALYST This note was partially generated using QWiPS voice recognition system. Note was reviewed for accuracy. There may be minor misspellings or grammar miscues with QWiPS voice recognition. documented in this encounterCleveland [id number] Miscellaneous Notes* Telephone Encounter - Jud Mattson MA - 12/04/2022 4:01 PM EDT Patient notified rx sent to pharmacy Jud Mattson MA * Telephone Encounter - Roque Delgado MD - 12/04/2022 3:28 PM EDT Refill for Cyclobenzaprine approved and sent to patient's preferred pharmacy. Roque Delgado III, MD, DENNIS * Telephone Encounter - Idalia Kent MA - 12/04/2022 3:13 PM EDT PATIENT NEEDS REFILL SHE HAS AN APPOINTMENT 01/15/23 PLEASE ADVISE documented in this encounterCleveland Clinic [facility]07-13-2023 Miscellaneous Notes* Addendum Note - Celena Maria LPN - 10/16/2022 10:30 AM EDTAddended by: CELENA MARIA on: 10/16/2022 10:30 AM Modules accepted: Orders documented in this encounterCleveland Clinic [facility]07-13-2023 History of Present illness Narrative* Kerrie Guthrie LPN - 10/16/2022 7:58 AM EDT Review of Systems Constitutional: Negative for activity change, chills, fever and unexpected weight change. Gastrointestinal: Negative for bowel retention or incontinence Genitourinary: Negative for difficulty urinating. Negative for bladder retention or incontinence Musculoskeletal: Positive for arthralgias, gait problem and myalgias. Negative for back pain, jointswelling, neck pain and neck stiffness. Neurological: Negative for weakness, numbness and headaches. Psychiatric/Behavioral: Negative for dysphoric mood, sleep disturbance and suicidal ideas. The patient is not nervous/anxious. * Roque Delgado MD - 10/16/2022 7:50 AM EDT Images from the original note were not included. [facility] [place] [facility] Name: Mari Lopez : 1940 Purpose: 2 month follow-up and SPRINT PNS lead removal Today's Date: 10/16/2022 Last Visit: 10/02/2022 Chief complaint: Thoracic and low back Pain Mari Lopez is an established patient, returning today for [...] 45 pounds) Complications: none Home Exercise compliance: Mari Lopez continues with their home exercise program. Therapies [...] All prescriptions have been APPROPRIATELY filled. No suspiciousactivity was identified. On 10/16/2022 by MD Eliazar [...] the lower lumbar spine. There is a tico in the visualized mid femoral shaft on right side. MRI Thoracic/Lumbar Spine 04/2022 THORACIC: Counting reference: Craniocervical and lumbosacral junctions. For the purposes of this report, L4-5is considered the level of the iliac crest and assume there are 5 lumbar-type vertebrae. Anatomic variant: None. Localizer images: Degenerative changes in bilateral shoulders. Bilateral renal cysts. Alignment: Exaggerated thoracic kyphosis. Cord: The thoracic spinal cord is within normal limits of signal intensity and morphology. Bone marrow signal/fracture: Scattered T2 and T1 hyperintense subcentimeter intervertebral lesions,likely hemangiomas. Multilevel eccentric anterior bridging osteophytes, compatible with DISH. No evidence of pathologic marrow infiltration. No evidence of prior fracture. Thoracic soft tissues: The paraspinal soft tissues are within normal limits. Canal and foramina: Facet arthrosis and ligamentum flavum thickening causing minimal left-sided T9-T10 neuroforamina and T10-T11 minimal left-sided neural foraminal narrowing. Otherwise, the thoraciccanal and foramina are patent within the constraints of the study. LUMBAR: Counting reference: Craniocervical and lumbosacral junctions. For the purposes of this report, L4-5is considered the level of the iliac crest [...] causing mild to moderate left-sided neural foraminal narrowingand mild right-sided neural foraminal narrowing. Spinal canal is patent. Sacrum and iliac wings: The visualized sacrum and iliac wings are within normal limits. The presacral soft tissues are normal in appearance. Multilevel lumbar spondylosisas outlined. Spinal canal stenosis is worst at L4- L5 causing (mild to moderate). Foraminal stenosis is [...] bony destructive process. Lumbar: There are five qut-yow-rbikpmo lumbar vertebrae. No acute fracture or subluxations [...] presents with complaint(s) of thoracic, low back andBL flank pain. Reports her low back pain has improved significantly after lumbar RFA. She continue to report bilateral flank pain. 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 She has mild bilateral lumbar paraspinal tenderness with some triggering. Trigger point injection did not help. Reports no SE with her gabapentin, finds this is very helpful. SPRINT PNS is helping tremendously, 100% relief of pain. Mari Lopez would benefit from the following to decrease pain, improve function and/or work participation, and improve quality of life: Plan: The Sprint(TM) SPR electrode(s) or lead(s) was removed without incident The patient will be followed by public health representative from the company Additional tests, treatments, [...] current dose Flexeril 10mg TID PRN Functional Scientologist: No changes-continue current regimen Additional Studies: None [...] medical decision making from today's date. Roque Delgado MD Pain Management [facility] documented in this encounterCleveland Clinic [facility]07-05-2023 Miscellaneous Notes* Telephone Encounter - Miryam Orozco APRN.DIGITAL DATA ANALYST - 10/08/2022 2:47 PM EDT The following approved medication requests have been transmitted electronically. Requested Prescriptions Signed Prescriptions Disp Refills zolpidem (AMBIEN) 10 mg 30 tablet 2 Sig: Take 1 tablet by mouth at bedtime as needed for up to 90 days. Authorizing Provider: MIRYAM OROZCO APRN.CNP PDMP website checked and validated. All prescriptions have been APPROPRIATELY filled. No suspiciousactivity was identified. 10/08/2022 by Miryam Orozco APRN.CJ * Telephone Encounter - Quynh Carlie - 10/08/2022 11:00 AM EDT Patient has been identified by name and date of : Yes Requested Prescriptions Pending Prescriptions Disp Refills zolpidem (AMBIEN) 10 mg 30 tablet 2 Sig: Take 1 tablet by mouth at bedtime as needed for up to 90 days. RX INSTRUCTIONS: Patient aware RX will be sent to pharmacy. No need to notify patient. Quynh Sexton documented in this encounterCleveland Clinic [facility]06-29-2023 History of Present illness Narrative* Celia Crowell LPN - 10/02/2022 9:41 AM EDT Review of Systems Constitutional: Positive for activity change. Negative for appetite change, chills, fever and unexpected weight change. Genitourinary: Negative for difficulty urinating. Musculoskeletal: Positive for arthralgias, back pain and myalgias. Negative for gait problem, jointswelling, neck pain and neck stiffness. Neurological: Negative for weakness, numbness and headaches. Psychiatric/Behavioral: Negative for dysphoric mood, sleep disturbance and suicidal ideas. The patient is not nervous/anxious. * Roque Delgado MD - 10/02/2022 7:40 AM EDT [facility] Date: 10/02/2022 Name: Mari Garrett John : 1940 Purpose: SPR lead(s) Removal Interval History: Mari Lopez is an established patient at [facility], who presents today for removal of SPR lead(s), which had been inserted to treat/control low back pain. Status Report: SPR device(s) placed left lumbar, 07/30/2022 (Right on 08/13) Problem with device: none Current pain level: 0/10 Relief experienced during SPR treatment: 100% (has also lost 45 pounds) Complications: none Home Exercise compliance: Mari Lopez continues with their home exercise program. Data [...] the conditions noted above, who presents today forremoval of SPR lead(s). After verifying the history noted above, performing a focused physical examination, and reviewing available data, the following plan was implemented: Plan: The Sprint(TM) SPR electrode(s) or lead(s) was removed without incident The patient will be followed by public health representative from the company Additional tests, treatments, or referrals: none Follow-up: For right lead removal in 2 weeks (10/16) Roque Delgado MD, DENNIS Pain Management [facility] * Roque Delgado MD - 10/01/2022 11:35 AM EDT Opened in error documented in this encounterCleveland Clinic [facility]05-10-2023 Nurse Note* Rom Cano LPN - 08/13/2022 3:20 PM EDT Order has been placed in the patient's [...] ambulatory method. Patient left in good condition. * Amada Velasco LPN - 08/13/2022 2:31 PM EDT SPR Stimulator Implant Date: August 13, 2022 Patient Name: Mari Lopez Date of : 1940 Time in:1450 Time start:1453 Time stop:1505 SPRINT endura PNS System Lot- [id number] 2023-11-05 SPRINT endura PNS System EXTERNAL PULSE GENERATOR Lot- [id number] 2023-11-05 SPRINT endura PNS System MICROLEAD 2.0 WITH ONEPASS INTRODUCER Lot- [id number] 2024-06-10 SPRINT endura PNS System CABLES SINGLE-LEAD PROCEDURE Lot- [id number] 2024-05-08 Nurse : Amada Velasco LPN Date: August 13, 2022 Time: 2:31 PM Physician: Roque Delgado MD Date: August 13, 2022 Time: 2:31 PM Amada Velasco LPN Pause completed at each level by provider to verify correct level and laterality placement Patient was wheeled on stretcher from pre op bay to procedure room and assisted onto the procedure table. Patient s procedure was performed in [facility] procedure room. Pressure was applied to patient s injection site(s) and bleeding was minimal. Patient had no complaint of shortness of breath, dizziness, headache, numbness, tingling, weakness or complications from procedure. Patient was assisted fromthe procedure table onto the stretcher and wheeled into a post op bay. Patient was advised a [employer] Survey Research Manager would be in for reprogramming. Patient was advised a clinician will be toobtain another set of vitals. Present in the room is: ROQUE DELGADO MD- Physician Amada Velasco - COUNTER CASER Shereen Ferreira/ Thierno Lorenzo - SPRINT Survey Research Manager AMADA SAUL - X-Ray Tech Comments: None Tolerated procedure well: Yes * Jose Roberto Jimenes - 08/13/2022 1:51 PM EDT Human Resource Manager's Name: Cayla Are you on a blood [...] to receive one? no documented in this encounterCleveland Clinic [facility]05-10-2023 History of Present illness Narrative* Jose Roberto Jimenes - 08/13/2022 1:54 PM EDT Subjective HPI Review of Systems Constitutional: Negative [...] substance abuse and suicidal ideas. The patient isnot nervous/anxious. PAST MEDICAL HISTORY Diagnosis Date Chronic [...] CONDYLE&PLATU MEDIAL&LAT COMPARTMENTS 1990 bilateral total knee s([place]) ARTHRP KNE CONDYLE&PLATU MEDIAL&LAT COMPARTMENTS 10/24/04 bilateral total knee revisions DELIVERY ONLY , low cervical CHOLECYSTECTOMY COLONOSCOPY FLX DX W/COLLJ SPEC WHEN PFRMD 11/17/2017 Colonoscopy DEBRIDEMENT SUBCUTANEOUS TISSUE 20 SQ CM/< 02/17/07 LEFT LEG DEBRIDEMENT SUBCUTANEOUS TISSUE 20 SQ CM/< [id number] LEFT LEG DEBRIDEMENT SUBCUTANEOUS TISSUE 20 SQ CM/< [id number] LEFT LEG DEBRIDEMENT SUBCUTANEOUS TISSUE 20 SQ CM/< [id number] LEFT LEG DEBRIDEMENT SUBCUTANEOUS TISSUE 20 SQ CM/< [id number] LEFT LEG DEBRIDEMENT SUBCUTANEOUS TISSUE 20 SQ CM/< 03/03/07 LEFT LEG ESOPHAGOGASTRODUODENOSCOPY TRANSORAL DIAGNOSTIC 11/17/2017 EGD GASTRIC BYPASS 07/08 HEMORRHOIDECTOMY INTERNAL RUBBER BAND LIGATIONS HYSTEROSCOPY BX W/WO D&C 01/07/2018 PAST SURGICAL HISTORY OF 04/10/2016 [place]ico and new knee cap put in right [...] daily. Take on empty stomach. For thyroid. Fxfqktkfmkv-Qntdvnolk-Vmc C-Mn (GLUCOSAMINE CHONDROITIN MAXSTR) 500-400 mg cap Take 1 capsule by mouth three times daily. lisinopril-hydroCHLOROthiazide (PRINZIDE,ZESTORETIC) 10-12.5 mg per tablet Take 1 tablet by mouth once daily. COMPOUNDED PRESCRIPTION Stair lift DAILY-LUISITO tablet TAKE 1 TABLET BY MOUTH ONCE DAILY. njvwsee-rkmteeqwj-apquwnz D3 (CALCIUM 500+D) 500 mg(1,250mg) -200 unit [...] vitals taken for this visit. Physical Exam * Roque Delgado MD - 08/13/2022 7:58 AM EDT [facility] Date: 08/13/2022 Patient name: Mari Lopez Physician performing procedure: Roque Delgado M.D., M.B.A. Procedure: Peripheral Nerve Stimulator Implantation under fluoroscopic guidance utilizing the SPRINT device, targeting the right L4 medial branch nerve at the L5 vertebral body Improvement after today's procedure: as per nursing report Diagnosis: (M54.50, G89.29) Chronic bilateral low back pain without sciatica (primary encounter diagnosis) (M47.816) Lumbar spondylosis Comments: Stim at level 80 HPI: Mari Lopez is an 82 year old FEMALE who presents today, in pain, for the procedure noted above. Review of Systems: Pertinent Positives: MSK: pain in the region being treated Neuro: no weakness or numbness in the region being treated Skin: Negative (No itching) Eyes: Negative (No blurred or double vision) Respiratory: Negative (No Cough, Bdepnnydt-tv-xitday, Dyspnea on exertion, wheezing) Cardiovascular: Negative (No [...] CONDYLE&PLATU MEDIAL&LAT COMPARTMENTS 1990 bilateral total knee s([place]) ARTHRP KNE CONDYLE&PLATU MEDIAL&LAT COMPARTMENTS 10/24/04 bilateral total knee revisions DELIVERY ONLY , low cervical CHOLECYSTECTOMY COLONOSCOPY FLX DX W/COLLJ SPEC WHEN PFRMD 11/17/2017 Colonoscopy DEBRIDEMENT SUBCUTANEOUS TISSUE 20 SQ CM/< 02/17/07 LEFT LEG DEBRIDEMENT SUBCUTANEOUS TISSUE 20 SQ CM/< [id number] LEFT LEG DEBRIDEMENT SUBCUTANEOUS TISSUE 20 SQ CM/< [id number] LEFT LEG DEBRIDEMENT SUBCUTANEOUS TISSUE 20 SQ CM/< [id number] LEFT LEG DEBRIDEMENT SUBCUTANEOUS TISSUE 20 SQ CM/< [id number] LEFT LEG DEBRIDEMENT SUBCUTANEOUS TISSUE 20 SQ CM/< 03/03/07 LEFT LEG ESOPHAGOGASTRODUODENOSCOPY TRANSORAL DIAGNOSTIC 11/17/2017 EGD GASTRIC BYPASS 07/08 HEMORRHOIDECTOMY INTERNAL RUBBER BAND LIGATIONS HYSTEROSCOPY BX W/WO D&C 01/07/2018 PAST SURGICAL HISTORY OF 04/10/2016 [place] and new knee cap put in right [...] daily. Take on empty stomach. For thyroid. Xbkdcnlpwaz-Wgodcyjjn-Cpz C-Mn (GLUCOSAMINE CHONDROITIN MAXSTR) 500-400 mg cap Take 1 capsule by mouth three times daily. lisinopril-hydroCHLOROthiazide (PRINZIDE,ZESTORETIC) 10-12.5 mg per tablet Take 1 tablet by mouth once daily. COMPOUNDED PRESCRIPTION Stair lift DAILY-LUISITO tablet TAKE 1 TABLET BY MOUTH ONCE DAILY. gjaynun-vosihftep-hrxyjqv D3 (CALCIUM 500+D) 500 mg(1,250mg) -200 unit [...] appropriate Assessment and Plan: As noted above [facility] protocol documentation / Pre-Procedure Checklist: Consent: Obtained [...] written consent to proceed and was transported intothe procedure room Surgical/Procedure pause or Time Out : Time Out was led by the physician in the procedure room, with the patient and all staff present andparticipating The following information was verified during the [...] area was anesthetized with 5 ml of 2%lidocaine. Once adequate anesthesia was achieved, a 20 gauge finder needle inserted through a 17 gauge introducer was inserted through the skin and advanced in plane under image guidance until the tip of the needle was perineural to the above-mentioned nerve. Test stimulation was conducted per the [facility] public health representative successfully. The finder needle was then [...] programming and be discharged home with their drop hammer pile driver operator. The patient was instructed to monitor for [...] instructions was offered to the patient. Roque Delgado MD, MBA Pain Management [facility] documented in this encounterCleveland Clinic [facility]05-01-2023 Miscellaneous Notes* Telephone Encounter - Roque Delgado MD - 08/04/2022 1:04 PM EDT Please let Ms. Lopez know that the right foot x-ray showed no fracture. GOUKL Mathias III, MDA documented in this encounterCleveland Clinic [facility]04-27-2023 History and physical note Author Dr. Jackson [facility] July 31, 2022 2:01pm Note Date/Time July 31, 2022 9:4 1am [facility] Medical Records Department [address] [place] [address] History & Physical Exam 07/31/22 0941 MR#: [id number] Acct: [id number] Name: MARI LOPEZ Rep #:[id number] : 1940 82 From: Maria Teresa Roy [employer] PCP: Dr. Lizy Capone MD Status:MT E SDC Location: [facility] History and Physical Date of Admission: 08/01/22 This is an 82-year-old lady who presents for a cardiac catheterization today. She has a history of hypertension, obstructive sleep apnea, and a history of COVID in January 2021. She was previously seen for an evaluation of her pedal edema and shortness of breath.? She denies any chest pain or paroxysmal nocturnal dyspnea.? She however says that on occasion she has some tightness across her chest.? She was placed on isosorbide for this and there has been someimprovement but she unfortunately continues to have the discomfort.? She says the tightness appears to be with exertion but goes away with rest.? You rememberthat she did have some renal dysfunction previously.? ? She has had pedal edema.? You remember that she underwent an echocardiogram in 2018 which demonstrated an ejection fraction of 53%.? She did have a more recent echocardiogram in August of 2021 which demonstrated an ejection fraction of 65% with no wall motion abnormalities present and stage I diastolic dysfunction.? She had been on antihypertensive medication and diuretics.? She was seen by the health and fitness instructor and had Lasix dosage adjustments to 80 mg 3 times a week and 40 mg the other days.? She had a recent chemistry profile performed.? And her creatinine has actually improved to 1.2 with a GFR of 46.? She has had no dizziness or diaphoresis no near syncope or syncope.? Her blood pressure has been under good control.? She was initially sent to see us because of her persistent pedal edema. ? She has had no dizziness or diaphoresis no near syncope or syncope.? Intake Vital Signs: See EMR Allergies See EMR Medications See EMR Ejection fraction %: 65 to 70 PFSH Medical History? (HFpEF) heart failure with preserved ejection fraction Abdominal pain Arthritis Chronic acquired lymphedema Chronic kidney disease Chronic obstructive airway disease with asthma COVID-19 (01/19/21) DVT (deep venous thrombosis) Essential (primary) hypertension GERD (gastroesophageal reflux disease) History of back problems History of pulmonary embolus (PE) Incomplete left bundle branch block Insomnia Morbid obesity with BMI of 45.0-49.9, adult MRSA (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 Obesity Obstructive sleep apnea Swelling of left lower extremity Thyroid disease Surgical History? H/O hemorrhoidectomy History of bilateral knee replacement History of dilatation and curettage History of gastric bypass History of herniorrhaphy History of hysteroscopy History of open reduction and internal fixation (ORIF) procedure Status post debridement Family History? Mother Cancer ?? ? uterine Social History? Smoking Status:? Never smoker alcohol intake:? never substance use type:? does not use caffeine:? Yes Type: coffee Number of servings: 3 ROS Const Const: Positive for fatigue (Decreased energy); Negative for weakness, headache(s), frequent falls, difficulty sleeping or excessive sweating Eyes Eyes: Negative for loss of peripheral vision, transient loss of vision, blurry vision, double vision or tunnel vision ENT ENT: Positive for balance problems; Negative for headache(s), dizziness or Nosebleed/epistaxis Cardio Chest Pain: Yes Frequency: more than once a day Character: other (heaviness) Onset: other (with activity) Location: mid sternal Duration: continuous Palpitations: Yes feels like its: fast Edema: Bilateral Muscle aches with walking: None Resp Respiratory: Positive for SOB with activity, Cough and wheezing; Negative for SOB at rest, SOB orthopnea\SOB lying down or paroxysmal nocturnal dyspnea GI GI: Negative nausea, vomiting, heartburn or black,tarry stools : Negative for hematuria Musc Musc: Positive for joint pain and balance problems; Negative for muscle aches/ myalgia or muscle weakness Skin Skin: Negative non-healing lesions, rash or unusual bruising Neuro Neuro: Negative for dizziness, lightheadedness, near syncope, syncope, frequent falls, headache(s), weakness, blurry vision, double vision or lack of coordination [place] Hematologic/Lymphatic: Negative for easy bleeding or easy bruising Endo Endo: Positive for fatigue (Decreased energy); Negative for excessive sweating or increased thirst/drinking Psych Psych: Negative for anxiety or depression Allergy Allergy/Immunology: Negative for hives and Negative for rash Cardiology Exam Const Appearance: cooperative, healthy appearing, no acute distress, well developed and well groomed Nutritional Appearance: average body habitus and well nourished Orientation: alert, awake and oriented x3 Head Head: normal to inspection, normocephalic and atraumatic Ears: hearing grossly normal bilaterally and external ears normal Nose: external nose normal, nares normal, nasal mucous membranes and turbinates normal, septum normal and no nasal discharge Face and Sinus: face symmetric Mouth: oral mucosae normal, tongue normal, oropharynx normal and moist mucous membranes Teeth and gingiva: dentition normal Throat: posterior oropharynx normal, tonsils normal and uvula midline Eyes General: appearance normal, both eyes and all related structures Eyelids: eyelids normal Conjunctivae: conjunctivae normal Pupils: PERRL, normal by confrontation and accommodation normal EOM: EOM intact bilaterally Neck Neck: normal visual inspection, trachea midline and no JVD JVD: +5 Carotids: normal carotid upstroke and bounding pulses Chest Chest inspection: normal inspection of the chest, symmetric chest movement and normal respiratory effort Auscultation: Bilateral: Clear to Auscultation Cardio Palpation: normal PMI Rate: regular rate Rhythm: regular rhythm Heart sounds: S1 normal, S2 normal and normal, physiologic split S2; Negative rub, gallop or murmur GI GI: normal to inspection, soft, no hepatosplenomegaly and bowel sounds present Neuro General: patient alert, patient awake, patient oriented x3, gait normal, moves all extremities and no focal sensory deficit Skin Skin: no rashes or lesions noted Extremities Pulses: Normal: Right Femoral Pulse, Left Femoral Pulse, Right Dorsalis Pedis Pulse, Left Dorsalis Pedis Pulse, Right Posterior Tibial Pulse, Left Posterior Tibial Pulse, Right Radial Pulse and Left Radial Pulse Lower Extremity Edema: +2: Bilateral Bilaterally deformed lower extremities and lymphedema present Musculoskel Musculoskeletal: No joint tenderness Psych Psychological: normal affect Supplemental Info Supplemental Information ECHOCARDIOGRAM? 08/29/2021 Interpretation Summary Normal LV size. Left ventricular systolic function is normal. The estimated ejection fraction is 65 %. Stage 1 diastolic dysfunction. Pulmonary artery systolic pressure is 34 mmHg. Contrast injection was performed. ? ECHOCARDIOGRAM 04/23/2018 Interpretation Summary Normal LV size. Left ventricular systolic function is lower limits of normal. The estimated ejection fraction is 53 %. Transmitral and pulmonary venous doppler flow suggestive of impaired relaxation of left ventricle Stage 1 diastolic dysfunction. The left atrium is mildly enlarged. Labs: ?? ? LDL Cholesterol 49 mg/dL (0-130) ?? ? HDL Cholesterol 51 mg/dL (40-) ?? ? Triglycerides 312 mg/dL (-199) H Assessment and Plan Assessment and Plan (1) Essential (primary) hypertension: ?Status:?Chronic ?Plan: Her blood pressure seems to be much better now and my recommendation is to continue the current medical therapy.? Her last echocardiogram had demonstrated an ejection fraction of 65% with stage I diastolic dysfunction. (2) (HFpEF) heart failure with preserved ejection fraction: ?Status:?Chronic ?Plan: She appears to have heart failure with preserved ejection fraction.? We did makeadjustments to her diuretics and this appears to have improved her renal function.? No changes to be made at this time (3) Chest pain: ?Status:?Acute ?Plan: She does have chest discomfort which is suggestive of angina which appears to bestable at this time.? She remains on the metoprolol and I would like to increaseher isosorbide to 30 mg twice a day.? She will also have sublingual nitroglycerin and aspirin.? I have discussed with her that she does need a left heart catheterization ideally.? She will proceed with a left heart catheterization, depending on results, further recommendations will be made. 07/31/22 0954 <Electronically signed by Maria Teresa BARAHONA> Cosigner Signature (if applicable): 07/31/22 1401 <Electronically signed by Norberto Jackson MD> CC: BROOKLYN Olivo; Dr. Norberto Jackson MD; Dr. Lizy Capone MD~ Signed [facility] Work Phone: [phone]) 985-879604-26-2023 Nurse Note* Malena Nagel LPN - 07/30/2022 2:36 PM EDT Order has been placed in the patient's [...] ambulatory method. Patient left in good condition. * Amada Velasco LPN - 07/30/2022 2:05 PM EDT [facility] Stimulator Implant Date: July 30, 2022 Patient Name: Mari Lopez Date of : 1940 Time in: 1400 Time start:1403 Time stop:1415 SPRINT endura PNS System [id number] SPRINT endura PNS System EXTERNAL PULSE GENERATOR [id number] SPRINT endura PNS System MICROLEAD 2.0 [employer]PASS INTRODUCER [id number] SPRINT endura PNS System CABLES - SINGLE-LEAD PROCEDURE [id number] Nurse : Amada Velasco LPN Date: July 30, 2022 Time: 2:06 PM Physician: Roque Delgado MD Date: July 30, 2022 Time: 2:06 PM Amada Velasco LPN Pause completed at each level by provider to verify correct level and laterality placement Patient was brought into the procedure room in a wheelchair . Patient s procedure was performed in [facility] procedure room. Pressure was applied to patient s injection site(s) and bleeding was minimal. Patient had no complaint of shortness of breath, dizziness, headache, numbness, tingling, weakness or complications from procedure. Patient was assisted from the procedure table into wheelchair and wheeled back to exam room. Patient was advised a [employer] Survey Research Manager would be in for reprogramming. Patient was advised a clinician will be to obtain another set of vitals. Present in the room is: ROQUE DELGADO MD - Physician Amada Velasco - RUDDY Ferreira - SPRINT Survey Research Manager Cordell Gee - X-Ray Tech Comments: None Tolerated procedure well: Yes * Jose Roberto Jimenes - 07/30/2022 12:56 PM EDT Human Resource Manager's Name: Stephanie Are you on a blood [...] to receive one? no documented in this encounterCleveland Clinic [facility]04-26-2023 History of Present illness Narrative* Jose Roberto Jimenes - 07/30/2022 12:59 PM EDT Subjective HPI Review of Systems Constitutional: Negative [...] substance abuse and suicidal ideas. The patient isnot nervous/anxious. PAST MEDICAL HISTORY Diagnosis Date Chronic [...] CONDYLE&PLATU MEDIAL&LAT COMPARTMENTS 1990 bilateral total knee s([place]) ARTHRP KNE CONDYLE&PLATU MEDIAL&LAT COMPARTMENTS 10/24/04 bilateral total knee revisions DELIVERY ONLY , low cervical CHOLECYSTECTOMY COLONOSCOPY FLX DX W/COLLJ SPEC WHEN PFRMD 11/17/2017 Colonoscopy DEBRIDEMENT SUBCUTANEOUS TISSUE 20 SQ CM/< 02/17/07 LEFT LEG DEBRIDEMENT SUBCUTANEOUS TISSUE 20 SQ CM/< [id number] LEFT LEG DEBRIDEMENT SUBCUTANEOUS TISSUE 20 SQ CM/< [id number] LEFT LEG DEBRIDEMENT SUBCUTANEOUS TISSUE 20 SQ CM/< [id number] LEFT LEG DEBRIDEMENT SUBCUTANEOUS TISSUE 20 SQ CM/< [id number] LEFT LEG DEBRIDEMENT SUBCUTANEOUS TISSUE 20 SQ CM/< 03/03/07 LEFT LEG ESOPHAGOGASTRODUODENOSCOPY TRANSORAL DIAGNOSTIC 11/17/2017 EGD GASTRIC BYPASS 07/08 HEMORRHOIDECTOMY INTERNAL RUBBER BAND LIGATIONS HYSTEROSCOPY BX W/WO D&C 01/07/2018 PAST SURGICAL HISTORY OF 04/10/2016 [place] and new knee cap put in right [...] by mouth once daily.^Disp: 30 tablet^Rfl: 11 (Patienttaking differently: Take 40 mg by mouth once daily.) levothyroxine (LEVOXYL) 125 mcg tablet^Take 1 tablet by mouth once daily. Take on empty stomach. For thyroid.^Disp: 90 tablet^Rfl: 3 Mxxuhqiqnyv-Lvbzcbmik-Shh C-Mn (GLUCOSAMINE CHONDROITIN MAXSTR) 500-400 mg cap^Take 1 capsule by mouth three times daily.^Disp: 90 capsule^Rfl: 11 lisinopril-hydroCHLOROthiazide (PRINZIDE,ZESTORETIC) 10-12.5 mg per tablet^Take 1 tablet by mouth once daily.^Disp: 30 tablet^Rfl: 11 (Patient not taking: Reported on 06/30/2022) COMPOUNDED PRESCRIPTION^Stair lift^Disp: 1 Device^Rfl: 0 DAILY-LUISITO tablet^TAKE 1 TABLET BY MOUTH ONCE DAILY.^Disp: 30 tablet^Rfl: 11 jizgsdo-klfckdjpx-rcqhczo D3 (CALCIUM 500+D) 500 mg(1,250mg) -200 unit [...] vitals taken for this visit. Physical Exam * Roque Delgado MD - 07/30/2022 7:59 AM EDT [facility] Date: 07/30/2022 Patient name: Mari Lopez Physician performing procedure: Roque Delgado M.D., M.B.A. Procedure: Peripheral Nerve Stimulator Implantation under fluoroscopic guidance utilizing the SPRINT device, targeting the left L4 medial branch nerve at the L5 vertebral body Improvement after today's procedure: as per nursing report Diagnosis: (M54.50, G89.29) Chronic bilateral low back pain without sciatica (primary encounter diagnosis) (M47.816) Lumbar spondylosis Comments: Motor stim noted at 60 HPI: Mari Lopez is an 82 year old FEMALE who presents today, in pain, for the procedure noted above. Review of Systems: Pertinent Positives: MSK: pain in the region being treated Neuro: no weakness or numbness in the region being treated Skin: Negative (No itching) Eyes: Negative (No blurred or double vision) Respiratory: Negative (No Cough, Kvayqkbnm-vd-txekxn, Dyspnea on exertion, wheezing) Cardiovascular: Negative (No [...] CONDYLE&PLATU MEDIAL&LAT COMPARTMENTS 1990 bilateral total knee s([place]) ARTHRP KNE CONDYLE&PLATU MEDIAL&LAT COMPARTMENTS 10/24/04 bilateral total knee revisions DELIVERY ONLY , low cervical CHOLECYSTECTOMY COLONOSCOPY FLX DX W/COLLJ SPEC WHEN PFRMD 11/17/2017 Colonoscopy DEBRIDEMENT SUBCUTANEOUS TISSUE 20 SQ CM/< 02/17/07 LEFT LEG DEBRIDEMENT SUBCUTANEOUS TISSUE 20 SQ CM/< [id number] LEFT LEG DEBRIDEMENT SUBCUTANEOUS TISSUE 20 SQ CM/< [id number] LEFT LEG DEBRIDEMENT SUBCUTANEOUS TISSUE 20 SQ CM/< [id number] LEFT LEG DEBRIDEMENT SUBCUTANEOUS TISSUE 20 SQ CM/< [id number] LEFT LEG DEBRIDEMENT SUBCUTANEOUS TISSUE 20 SQ CM/< 03/03/07 LEFT LEG ESOPHAGOGASTRODUODENOSCOPY TRANSORAL DIAGNOSTIC 11/17/2017 EGD GASTRIC BYPASS 07/08 HEMORRHOIDECTOMY INTERNAL RUBBER BAND LIGATIONS HYSTEROSCOPY BX W/WO D&C 01/07/2018 PAST SURGICAL HISTORY OF 04/10/2016 [place] and new knee cap put in right [...] daily. Take on empty stomach. For thyroid. Kcalzsnqvno-Dqbfhyndq-Sbe C-Mn (GLUCOSAMINE CHONDROITIN MAXSTR) 500-400 mg cap Take 1 capsule by mouth three times daily. lisinopril-hydroCHLOROthiazide (PRINZIDE,ZESTORETIC) 10-12.5 mg per tablet Take 1 tablet by mouth once daily. (Patient not taking: Reported on 06/30/2022) COMPOUNDED PRESCRIPTION Stair lift DAILY-LUISITO tablet TAKE 1 TABLET BY MOUTH ONCE DAILY. qtppubu-nfyplvufs-yoggihd D3 (CALCIUM 500+D) 500 mg(1,250mg) -200 unit [...] appropriate Assessment and Plan: As noted above [place] protocol documentation / Pre-Procedure Checklist: Consent: Obtained [...] written consent to proceed and was transported intothe procedure room Surgical/Procedure pause or Time Out : Time Out was led by the physician in the procedure room, with the patient and all staff present andparticipating The following information was verified during the [...] area was anesthetized with 5 ml of 2%lidocaine. Once adequate anesthesia was achieved, a 20 gauge finder needle inserted through a 17 gauge introducer was inserted through the skin and advanced in plane under image guidance until the tip of the needle was perineural to the above-mentioned nerve. Test stimulation was conducted per the [facility] public health representative successfully. The finder needle was then [...] programming and be discharged home with their drop hammer pile driver operator. The patient was instructed to monitor for [...] instructions was offered to the patient. Roque Delgado MD, MBA Pain Management [facility] documented in this encounterCleveland Clinic [facility]04-10-2023 Miscellaneous Notes* Telephone Encounter - Mulugeta Jennings APRN.CNP - 07/14/2022 12:40 PM EDT Approved. PDMP website checked and validated. All prescriptions have been APPROPRIATELY filled. No suspiciousactivity was identified. 07/14/2022 by Mulugeta Jennings APRN.CJ The following approved medication requests have been transmitted electronically. Requested Prescriptions Signed Prescriptions Disp Refills zolpidem (AMBIEN) 10 mg 30 tablet 2 Sig: Take 1 tablet by mouth at bedtime as needed for up to 90 days. Authorizing Provider: MULUGETA JENNINGS APRN.DIGITAL DATA ANALYST * Telephone Encounter - Patricia Mcqueen Pss - 07/14/2022 12:16 PM EDT Patient has been identified by name and [...] patient. Patricia Mcqueen Pss documented in this encounterCleveland Clinic [facility]04-03-2023 History and physical note Author Dr. Jackson [facility] July 07, 2022 6:17pm Note Date/Time July 07, 2022 1:51 pm [facility] Medical Records Department [address] [place] [id number] History & Physical Exam 07/07/22 1348 MR#: [id number] Acct: [id number] Name: MARI LOPEZ Rep #:[id number] : 1940 82 From: Jas Bethea NP HOUSEKEEPER NANNY-C PCP: Dr. Lizy Capone MD Status:MT E SDC Location: [facility] History and Physical Date of Admission: 08/01/22 82-year-old lady with a history of hypertension, obstructive sleep apnea, and a history of COVID in January 2021 who presents today for a heart catheterization.? She denies any chest pain or paroxysmal nocturnal dyspnea.? She however says that on occasion she has some tightness across her chest.? She was placed on isosorbide for this and there has been some improvement but she unfortunately continues to have the discomfort.? She says the tightness appears to be with exertion but goes away with rest.? You remember that she did have some renal dysfunction previously.? ? She has had pedal edema.? You remember that she underwent an echocardiogram in 2018 which demonstrated an ejection fraction of 53%.? She did have a more recent echocardiogram in August of 2021 which demonstrated an ejection fraction of 65% with no wall motion abnormalities present and stage I diastolic dysfunction.? She had been on antihypertensive medication and diuretics.? She was seen by the health and fitness instructor and had Lasix dosageadjustments to 80 mg 3 times a week and 40 mg the other days.? She had a recent chemistry profile performed.? And her creatinine has actually improved to 1.2 with a GFR of 46.? She has had no dizziness or diaphoresis no near syncope or syncope.? Her blood pressure has been under good control.? She was initially sent to see us because of her persistent pedal edema. ? She has had no dizzinessor diaphoresis no near syncope or syncope.? Her physical exam today demonstratesclear lung webster regular rate and rhythm and moderate pedal edema. 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 (HFpEF) heart failure with preserved ejection fraction Abdominal pain Arthritis Chronic acquired lymphedema Chronic kidney disease Chronic obstructive airway disease with asthma COVID-19 (01/19/21) DVT (deep venous thrombosis) Essential (primary) hypertension GERD (gastroesophageal reflux disease) History of back problems History of pulmonary embolus (PE) Incomplete left bundle branch block Insomnia Morbid obesity with BMI of 45.0-49.9, adult MRSA (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 Obesity Obstructive sleep apnea Swelling of left lower extremity Thyroid disease Surgical History? H/O hemorrhoidectomy History of bilateral knee replacement History of dilatation and curettage History of gastric bypass History of herniorrhaphy History of hysteroscopy History of open reduction and internal fixation (ORIF) procedure Status post debridement Family History? Mother Cancer ?? ? uterine Social History? Smoking Status:? Never smoker alcohol intake:? never substance use type:? does not use caffeine:? Yes Type: coffee Number of servings: 3 ROS Const Const: Positive for fatigue (Decreased energy); Negative for weakness, headache(s), frequent falls, difficulty sleeping or excessive sweating Eyes Eyes: Negative for loss of peripheral vision, transient loss of vision, blurry vision, double vision or tunnel vision ENT ENT: Positive for balance problems; Negative for headache(s), dizziness or Nosebleed/epistaxis Cardio Chest Pain: Yes Frequency: more than once a day Character: other (heaviness) Onset: other (with activity) Location: mid sternal Duration: continuous Palpitations: Yes feels like its: fast Edema: Bilateral Muscle aches with walking: None Resp Respiratory: Positive for SOB with activity, Cough and wheezing; Negative for SOB at rest, SOB orthopnea\SOB lying down or paroxysmal nocturnal dyspnea GI GI: Negative nausea, vomiting, heartburn or black,tarry stools : Negative for hematuria Musc Musc: Positive for joint pain and balance problems; Negative for muscle aches/ myalgia or muscle weakness Skin Skin: Negative non-healing lesions, rash or unusual bruising Neuro Neuro: Negative for dizziness, lightheadedness, near syncope, syncope, frequent falls, headache(s), weakness, blurry vision, double vision or lack of coordination [place] Hematologic/Lymphatic: Negative for easy bleeding or easy bruising Endo Endo: Positive for fatigue (Decreased energy); Negative for excessive sweating or increased thirst/drinking Psych Psych: Negative for anxiety or depression Allergy Allergy/Immunology: Negative for hives and Negative for rash Cardiology Exam Const Appearance: cooperative, healthy appearing, no acute distress, well developed and well groomed Nutritional Appearance: average body habitus and well nourished Orientation: alert, awake and oriented x3 Head Head: normal to inspection, normocephalic and atraumatic Ears: hearing grossly normal bilaterally and external ears normal Nose: external nose normal, nares normal, nasal mucous membranes and turbinates normal, septum normal and no nasal discharge Face and Sinus: face symmetric Mouth: oral mucosae normal, tongue normal, oropharynx normal and moist mucous membranes Teeth and gingiva: dentition normal Throat: posterior oropharynx normal, tonsils normal and uvula midline Eyes General: appearance normal, both eyes and all related structures Eyelids: eyelids normal Conjunctivae: conjunctivae normal Pupils: PERRL, normal by confrontation and accommodation normal EOM: EOM intact bilaterally Neck Neck: normal visual inspection, trachea midline and no JVD JVD: +5 Carotids: normal carotid upstroke and bounding pulses Chest Chest inspection: normal inspection of the chest, symmetric chest movement and normal respiratory effort Auscultation: Bilateral: Clear to Auscultation Cardio Palpation: normal PMI Rate: regular rate Rhythm: regular rhythm Heart sounds: S1 normal, S2 normal and normal, physiologic split S2; Negative rub, gallop or murmur GI GI: normal to inspection, soft, no hepatosplenomegaly and bowel sounds present Neuro General: patient alert, patient awake, patient oriented x3, gait normal, moves all extremities and no focal sensory deficit Skin Skin: no rashes or lesions noted Extremities Pulses: Normal: Right Femoral Pulse, Left Femoral Pulse, Right Dorsalis Pedis Pulse, Left Dorsalis Pedis Pulse, Right Posterior Tibial Pulse, Left Posterior Tibial Pulse, Right Radial Pulse and Left Radial Pulse Lower Extremity Edema: +2: Bilateral Bilaterally deformed lower extremities and lymphedema present Musculoskel Musculoskeletal: No joint tenderness Psych Psychological: normal affect Supplemental Info Supplemental Information ECHOCARDIOGRAM? 08/29/2021 Interpretation Summary Normal LV size. Left ventricular systolic function is normal. The estimated ejection fraction is 65 %. Stage 1 diastolic dysfunction. Pulmonary artery systolic pressure is 34 mmHg. Contrast injection was performed. ? ECHOCARDIOGRAM 04/23/2018 Interpretation Summary Normal LV size. Left ventricular systolic function is lower limits of normal. The estimated ejection fraction is 53 %. Transmitral and pulmonary venous doppler flow suggestive of impaired relaxation of left ventricle Stage 1 diastolic dysfunction. The left atrium is mildly enlarged. Labs: ?? ? LDL Cholesterol 49 mg/dL (0-130) ?? ? HDL Cholesterol 51 mg/dL (40-) ?? ? Triglycerides 312 mg/dL (-199) H Diagnostics: ?? ? Venous Doppler Study ? Pulmonary: ?? ? No Data to Display Past Visits: ?? ? No Data to Display Assessment and Plan Assessment and Plan (1) Essential (primary) hypertension: ?Status:?Chronic ?Plan: Her blood pressure seems to be much better now and my recommendation is to continue the current medical therapy.? Her last echocardiogram had demonstrated an ejection fraction of 65% with stage I diastolic dysfunction. (2) (HFpEF) heart failure with preserved ejection fraction: ?Status:?Chronic ?Plan: She appears to have heart failure with preserved ejection fraction.? We did makeadjustments to her diuretics and this appears to have improved her renal function.? No changes to be made at this time (3) Chest pain: ?Status:?Acute ?Plan: During cardiology office appointment in June 2022 her isosorbide was advanced. She will proceed with heart catheterization. Heart catheterization was postponed on account of back procedure with [facility]. At this time, shewill proceed with heart catheterization and depending on results, further recommendations be made. 07/07/22 1351 <Electronically signed by Jas BARAHONA> Cosigner Signature (if applicable): 07/07/22 1817 <Electronically signed by Norberto Jackson MD> CC: BROOKLYN Bethea; Dr. Norberto Jackson MD; Dr. Lizy Capone MD~ Signed [facility] Work Phone: [phone]) [phone] Nurse Note* Celia Crowell LPN - 07/02/2022 1:11 PM EDT Human Resource Manager's Name: Richard Are you on a blood [...] to receive one? N documented in this encounterC[facility]03-29-[facility] History of Present illness Narrative* Roque Delgado MD - 07/02/2022 8:29 AM EDT Procedure cancelled, patient on antibiotic for UTI. Will reschedule. Roque Delgado III, MD, DENNIS documented in this encounterCleveland Clinic [facility]03-28-2023 Miscellaneous Notes* Telephone Encounter - Esme Chi LPN - 07/01/2022 10:55 AM EDT Pt notified of results and provider message. Esme Chi LPN * Telephone Encounter - Chaya Banuelos MA - 06/30/2022 9:06 AM EDT Unable to reach patient. Left VM to return call to office. Please read below and advise. Chaya Banuelos MA * Telephone Encounter - Mulugeta Jennings APRN.CNP - 06/30/2022 7:51 AM EDT Please let the patient know that her urine culture did grow e.coli bacteria. The macrobid that Miryam prescribed will treat the bacteria appropriately. Mulugeta Jennings APRN.CJ documented in this encounterC[facility]03-27-2023 Instructions* Patient Instructions* Ragini Gomes APRN.CNP - 06/30/2022 10:56 AM EDT Images from the original note were not included. INFORMATION ON URODYNAMICS (BLADDER FUNCTION TEST) Getting Ready for the Test You do not have to fast before the test. Begin to drink 24-32 ounces of fluid (water, cranberry juice, milk, herbal tea) 90 minutes prior tothe test so you arrive at the [facility] with the urge to empty your bladder. [...] your bladder when you arrive at the [facility]. Speak with a nurse if you feel you must empty your bladder. If you are taking antibiotics for a urinary tract infection (UTI) or bladder infection, notify yourphysician's office immediately. We may reschedule your bladder test. Bring a list of all prescribed and dbke-gch-lzncwag medications you are taking. If you should need assistance due to a language barrier or medical needs/condition, please notify the bottle tester when making your appointment and one will be provided for you ([phone]). If you are taking overactive bladder medications [...] Parkinson's, multiple sclerosis, and stroke. Traumas that cancause nerve damage include pelvic or back surgery, herniated disc, and radiation. Medications, alcohol, and caffeine -these products can dull the nerves, affecting the signal to thebrain, resulting in bladder overflow. Diuretics and caffeine [...] sneezing, laughing, because you were not able toreach the bathroom in time, etc.). Monitor your diet Eliminate or decrease foods or beverages that may worsen bladder symptoms. These include: Alcoholic beverages Cantaloupe [place] and spicy foods Apples & apple juice [place] fruit Chocolate Tea & Coffee (including decaffeinated) [...] which may contribute to bladder problems. If youare overweight, weight loss can reduce pressure on [...] your current voiding interval. For example, if youurinate every hour on average, this would be [...] until you reach an interval you feel comfortablewith. The goal is to reach an interval [...] electrically stimulates the nerves that control the bladder.An acupuncture needle is placed at the ankle [...] the implant is placed. Useful Internet resources Https://www.nafc.org/ https://www.niddk.nih.gov/health-information https://www.Audematsforpfd.org/ Bladder Training Program for Overactive Bladder & [...] then relax for 10 seconds. Repeat these [id number] times and do this at least 4 times daily. Try not to contract the abdominal muscles while matias the pelvic floor muscles. Do not continue to start and stop the urinary stream; use this technique only initially to identify the pelvic floor muscles. Quick Flicks: When you get an urge to urinate, [...] time that you urinate for a typical 48-72hour period. You may also be asked to measure the amount of urine each time. You should also recordany episodes of incontinence (urine loss) or bladder pain. Common Bladder Irritants (to avoid): Alcoholic beverages: Artificial sweeteners and colors/dyes Tomatoes Beer Chocolate Spicy foods Wine [place] syrup [place] juices and fruit Caffeine: Sugar Carbonated fluids Soft drinks with caffeine Coffee Tea (including green tea) Medicines with caffeine Medication: You may be prescribed medication to help relax the bladder and reduce the involuntary contractions.There are several different medications which may be used, all with similar side effects. The common side effects include constipation, dry mouth, excessive thirst, blurred vision, flushing and dizzin ess. If you experience bothersome side effects, please call your doctor's office immediately so that the dose can be adjusted or another medication can be prescribed. If you have glaucoma, constipation or bowel problems, difficulty urinating or problems with your heart rhythm, you may not be able to take these medications. documented in this encounterC[facility]03-27-2023 History of Present illness Narrative* Ragini Gomes APRN.CNP - 06/30/2022 9:30 AM EDT Female Pelvic Medicine & Reconstructive Surgery Consult CHIEF COMPLAINT: Mari Lopez is a 82 year old female who presents for consultation requested by Miryam Orozco APRN.CNP for an opinion regarding Female stress incontinence. 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 Is here today for mixed urinary incontinence. States she is leaking large amounts of urine both with coughing/laughing/sneezing/standing/walking and with urgency. 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) Quite a bit somewhat [...] CONDYLE&PLATU MEDIAL&LAT COMPARTMENTS 1990 bilateral total knee s([place]) ARTHRP KNE CONDYLE&PLATU MEDIAL&LAT COMPARTMENTS 10/24/04 bilateral total knee revisions DELIVERY ONLY , low cervical CHOLECYSTECTOMY COLONOSCOPY FLX DX W/COLLJ SPEC WHEN PFRMD 11/17/2017 Colonoscopy DEBRIDEMENT SUBCUTANEOUS TISSUE 20 SQ CM/< 02/17/07 LEFT LEG DEBRIDEMENT SUBCUTANEOUS TISSUE 20 SQ CM/< [id number] LEFT LEG DEBRIDEMENT SUBCUTANEOUS TISSUE 20 SQ CM/< [id number] LEFT LEG DEBRIDEMENT SUBCUTANEOUS TISSUE 20 SQ CM/< [id number] LEFT LEG DEBRIDEMENT SUBCUTANEOUS TISSUE 20 SQ CM/< [id number] LEFT LEG DEBRIDEMENT SUBCUTANEOUS TISSUE 20 SQ CM/< 03/03/07 LEFT LEG ESOPHAGOGASTRODUODENOSCOPY TRANSORAL DIAGNOSTIC 11/17/2017 EGD GASTRIC BYPASS 07/08 HEMORRHOIDECTOMY INTERNAL RUBBER BAND LIGATIONS HYSTEROSCOPY BX W/WO D&C 01/07/2018 PAST SURGICAL HISTORY OF 04/10/2016 [place] and new knee cap put in right [...] mg capsule Take 1 capsule by mouth twicedaily with meals for 7 days. phenazopyridine (PYRIDIUM) 100 mg tablet Take 2 tablets by mouth three times daily as needed for upto 10 days. omeprazole (PRILOSEC) 20 mg capsule [...] daily. Take on empty stomach. For thyroid. Jvtymerfuca-Izbpyciev-Ttk C-Mn (GLUCOSAMINE CHONDROITIN MAXSTR) 500-400 mg cap Take 1 capsule by mouth three times daily. COMPOUNDED PRESCRIPTION Stair lift DAILY-LUISITO tablet TAKE 1 TABLET BY MOUTH ONCE DAILY. kcdaoxg-afrdkbbwp-wzmglvd D3 (CALCIUM 500+D) 500 mg(1,250mg) -200 unit [...] the PFSH and ROS obtained by others. Ragini Gomes APRN.DIGITAL DATA ANALYST Telephone Interceptor Operator offered: Patient declines. OBJECTIVE: BP 135/80 Pulse [...] treated for UTI Bladder scan: N/A IMPRESSION: Mari Lopez is a 82 year old female with Stress Urinary Incontinence, Urge Urinary Incontinence. PLAN: 1. Female stress incontinence - Discussed conservative management of KACIE, including kegel exercises, formal pelvic floor physicaltherapy +/- biofeedback, OTC vaginal inserts, and pessary [...] of lifetstyle modifications, behavioral therapy, bladder retraining +/-physical therapy, and medications. Also briefly described 3rd [...] which included preparing to see the patient, scld-eh-oska patient care, completing clinical documentation, obtaining and/or reviewing separately obtained history, performing a medically appropriate examination, counseling and educating the pat ient/family/caregiver, and ordering medications, tests, or procedures. My final recommendations will be communicated back to the requesting physician by way of shared Medical record or letter via US mail. Ragini Gomes APRN.CJ documented in this encounterC[facility]03-24-2023 Miscellaneous Notes* Telephone Encounter - Josselin Baxter RN - 06/27/2022 11:32 AM EDT Patient returned call and given provider's message below. Gabino Baxter RN * Telephone Encounter - Kaleigh Wooten LPN - 06/27/2022 9:01 AM EDT Message left with person answering phone to have pt return the call. Kaleigh Wooten LPN * Telephone Encounter - Mulugeta Jennings APRN.CNP - 06/27/2022 7:53 AM EDT Please let the patient know that her urine sample shows signs of infection for a UTI. The urine culture is not back yet, likely over the weekend. Continue with antibiotic as prescribed by Miryam. Mulugeta Jennings APRN.CNP documented in this encounterC[facility]03-23-2023 Instructions* Patient Instructions* Miryam Orozco APRN.CNP - 06/26/2022 9:18 AM EDT Provide [...] to Dr. Hernandez, she is located in [facility], 2nd floor. Keep scheduled appointments with Dr. Acosta and Dr. Delgado Follow up in 3 months or sooner as needed. documented in this encounterC[facility]03-23-2023 History of Present illness Narrative* Miryam Orozco APRN.CNP - 06/26/2022 9:00 AM EDT This is a 82 year old female who presents today with: No chief complaint on file. HISTORY OF PRESENT ILLNESS: Mari Lopez is a 82 year old female. No chief complaint on file. Here in the office for follow-up. Dysuria that started 4 days ago. Lower abdominal pressure. Urine has an abnormal smell. No fever orchills. History of incontinence, requesting consult to urology for further evaluation and treatmentoptions Chronic back pain: Following with pain management, Dr. Delgado, will be having SPR device placement on the right side July 02 in [place]. Knee Pain: Would like a prescription for Voltaren gel. History of C. Difficile: Was seen by general surgery, Dr. Recio. Had blood noted in the stool. Treated. Repeat C. difficile testing was normal. If Refers that she has noticed smelly stools again after eating meals. Would like repeat testing. LLE: Lasix 80, 60, 40, Mon, Wed, Thursday for Lasix per Nehrology. Cardiology: seeing [...] CONDYLE&PLATU MEDIAL&LAT COMPARTMENTS 1990 bilateral total knee s([place]) ARTHRP KNE CONDYLE&PLATU MEDIAL&LAT COMPARTMENTS 10/24/04 bilateral total knee revisions DELIVERY ONLY , low cervical CHOLECYSTECTOMY COLONOSCOPY FLX DX W/COLLJ SPEC WHEN PFRMD 11/17/2017 Colonoscopy DEBRIDEMENT SUBCUTANEOUS TISSUE 20 SQ CM/< 02/17/07 LEFT LEG DEBRIDEMENT SUBCUTANEOUS TISSUE 20 SQ CM/< [id number] LEFT LEG DEBRIDEMENT SUBCUTANEOUS TISSUE 20 SQ CM/< [id number] LEFT LEG DEBRIDEMENT SUBCUTANEOUS TISSUE 20 SQ CM/< [id number] LEFT LEG DEBRIDEMENT SUBCUTANEOUS TISSUE 20 SQ CM/< [id number] LEFT LEG DEBRIDEMENT SUBCUTANEOUS TISSUE 20 SQ CM/< 03/03/07 LEFT LEG ESOPHAGOGASTRODUODENOSCOPY TRANSORAL DIAGNOSTIC 11/17/2017 EGD GASTRIC BYPASS 07/08 HEMORRHOIDECTOMY INTERNAL RUBBER BAND LIGATIONS HYSTEROSCOPY BX W/WO D&C 01/07/2018 PAST SURGICAL HISTORY OF 04/10/2016 [place] and new knee cap put in right [...] daily. Take on empty stomach. For thyroid. Iwnkzntonqu-Bfzlpyoss-Qad C-Mn (GLUCOSAMINE CHONDROITIN MAXSTR) 500-400 mg cap Take 1 capsule by mouth three times daily. lisinopril-hydroCHLOROthiazide (PRINZIDE,ZESTORETIC) 10-12.5 mg per tablet Take 1 tablet by mouth once daily. COMPOUNDED PRESCRIPTION Stair lift DAILY-LUISITO tablet TAKE 1 TABLET BY MOUTH ONCE DAILY. chozspt-fdmafwptx-wvmjrgz D3 (CALCIUM 500+D) 500 mg(1,250mg) -200 unit [...] were discussed and patient voices understanding. Miryam Orozco APRN.CJ This note was partially generated using QWiPS voice recognition system. Note was reviewed for accuracy. There may be minor misspellings or grammar miscues with QWiPS voice recognition. documented in this encounterCleveland [facility]03-01-2023 Miscellaneous Notes* Addendum Note - Roque Delgado MD - 06/04/2022 4:09 PM ESTAddended by: ROQUE DELGADO on: 06/04/2022 04:09 PM Modules accepted: Orders * Telephone Encounter - Roque Delgado MD - 06/04/2022 4:07 PM EST Xanax and Antibiotics for SPR sent to pharmacy. Patient can pickup right away. Note: Going with just 3 days antibiotics instead of usual 7 due to history of C Diff infection. Roque Delgado III, MD, DENNIS * Telephone Encounter - Samantha Quinones - 06/04/2022 1:59 PM EST Mari Lopez has been scheduled for SPR device placement - right side on 07/02/22 at 1:40pm, with Roque Delgado MD at [address], [place] [address]. Mari Lopez has been scheduled for Lead pull - right side on 09/04/22 at 9:45am, with Roque Delgado MD at [address], [place] [address]. Mari Lopez has been scheduled for SPR device placement - left side on 07/30/22 at 1pm, with Roque Delgado MD at [address], [place] [address]. Mari Lopez has been scheduled for Lead pull - left side on 10/02/22 at 9:45am, with Roque Delgado MD at [address], [place] [address]. Please call in Xanax and Antibiotics to e- [id number] [place] [address] - [address] - [phone] [facility] [address] [facility] [id number] [facility] [id number] Patient has allergies to Allergies: Aspirin Intolerance Bactrim [Sulfametho* Hives Comment:Blisters: head to toe Ibuprofen Rash Kefzol [Cefazolin S* Hives Peanut Butter [Othe* Comment:throat swelling, convulsions Sulfa (Sulfonamide * Hives, Unknown Comment:Blisters: head to toe Mailed patient pre procedure instructions and appointment reminders to patient. Samantha Marx Production Crew Supervisor to Dr. Roque Delgado, Spinal Cord Stimulator, Peripheral Nerve Stimulator, [facility] [address] [place] [address] P: [phone] ext. [phone] F: [phone] documented in this encounterC[facility]02-24-2023 Miscellaneous Notes* Telephone Encounter - Samantha Joni - 05/30/2022 10:45 AM EST I have attempted to contact this patient by phone, Spoke with someone that took a message stating to give me a call back at [phone] EXT [phone]. I have received the approval for the SPR device Cam was trying to get her scheduled. Samantha Marx documented in this encounterC[facility]02-20-2023 Miscellaneous Notes* Telephone Encounter - Erin Dillon RN - 05/26/2022 9:03 AM EST Patient referred to urogynecology for urinary incontinence. Currently, Dr. Shafer is only seeing surgical consults. Patient can be scheduled with urogynecology HOUSEKEEPER NANNY- Ragini Gomes. LMTCB, contact information provided. documented in this encounterCleveland [facility]02-13-2023 Miscellaneous Notes* Telephone Encounter - Miryam Orozco APRN.CNP - 05/19/2022 9:38 AM EST Noted, thank you. Miryam Orozco APRN.CJ * Telephone Encounter - Suzette Myles Ma - 05/19/2022 9:23 AM EST See update, FYI. Suzette Myles Ma * Telephone Encounter - Olga Dillard RN - 05/19/2022 8:14 AM EST Patient calls to report that she over-slept this morning for her 8 am appointment with Miryam Rainey d/t having cold symptoms (cough and nasal congestion). Patient called at 8:14 am. Offered to schedule another appointment. Patient reports she will call back when feeling better andhas her calendar available. Olga Dillard RN documented in this encounterCleveland Clinic [facility]02-10-2023 History of Present illness Narrative* Jae Cagle MD - 05/16/2022 8:03 AM EST HISTORY AND PHYSICAL Mari Lopez 1940 REFERRING PHYSICIAN: Miryam Orozco APRN.C* CHIEF COMPLAINT: Consult (Hernia in upper [...] pathogen panel was negative. C. difficile was positivefor toxin by PCR but not EIA. The [...] her right hip and left elbow region. Sheis asking if I could obtain an x-ray [...] me today at the request of Miryam Orozco APRN.C* my opinion and advice regarding C. [...] CONDYLE&PLATU MEDIAL&LAT COMPARTMENTS 1990 bilateral total knee s([place]) ARTHRP KNE CONDYLE&PLATU MEDIAL&LAT COMPARTMENTS 10/24/04 bilateral total knee revisions DELIVERY ONLY , low cervical CHOLECYSTECTOMY COLONOSCOPY FLX DX W/COLLJ SPEC WHEN PFRMD 11/17/2017 Colonoscopy DEBRIDEMENT SUBCUTANEOUS TISSUE 20 SQ CM/< 02/17/07 LEFT LEG DEBRIDEMENT SUBCUTANEOUS TISSUE 20 SQ CM/< [id number] LEFT LEG DEBRIDEMENT SUBCUTANEOUS TISSUE 20 SQ CM/< [id number] LEFT LEG DEBRIDEMENT SUBCUTANEOUS TISSUE 20 SQ CM/< [id number] LEFT LEG DEBRIDEMENT SUBCUTANEOUS TISSUE 20 SQ CM/< [id number] LEFT LEG DEBRIDEMENT SUBCUTANEOUS TISSUE 20 SQ CM/< 03/03/07 LEFT LEG ESOPHAGOGASTRODUODENOSCOPY TRANSORAL DIAGNOSTIC 11/17/2017 EGD GASTRIC BYPASS 07/08 HEMORRHOIDECTOMY INTERNAL RUBBER BAND LIGATIONS HYSTEROSCOPY BX W/WO D&C 01/07/2018 PAST SURGICAL HISTORY OF 04/10/2016 [place] and new knee cap put in right [...] daily. Take on empty stomach. For thyroid. Nyjicwqjydq-Vxsbjvkaz-Ssz C-Mn (GLUCOSAMINE CHONDROITIN MAXSTR) 500-400 mg cap Take 1 capsule by mouth three times daily. lisinopril-hydroCHLOROthiazide (PRINZIDE,ZESTORETIC) 10-12.5 mg per tablet Take 1 tablet by mouth once daily. COMPOUNDED PRESCRIPTION Stair lift DAILY-LUISITO tablet TAKE 1 TABLET BY MOUTH ONCE DAILY. ebepebs-wqnolmsjw-tuocysr D3 (CALCIUM 500+D) 500 mg(1,250mg) -200 unit [...] nurse and reviewed by me Nursing Notes: Mari Umaña LPN 05/13/2022 3:25 PM Signed REVIEW OF SYSTEMS: [...] last Mammogram screening? 2019 Last Colonoscopy: 2017 Mari Umaña LPN PHYSICAL EXAMINATION: General: The patient is 81 year old female, well nourished, well hydrated in no acute distress. Thepatient is oriented to time, place, and person. She is present in a wheelchair VITALS: Blood pressure 108/58, pulse 74, temperature 36.7 C (98 F), height 157.5 cm (5' 2), ctfuau219.3 kg (285 lb), SpO2 91 %. HEENT: Normal cephalic, ataumatic, pupils are equally round, sclera are anicteric, mucous membranesare moist, oropharynx is clear. Neck has no [...] difficile stool studies to assure that infection hasresolved. If the infection was resolved then I [...] patient there is a new urogynecologist at [facility] Dr. Jessica Munoz forward this note to her for her consideration/evaluation or for urologic incontinence issues. Diagnoses: (A04.72) C. difficile colitis (primary encounter diagnosis) (K62.5) Rectal bleeding (R19.5) Change in stool (W19.XXXA) Fall, initial encounter My findings have been communicated to [facility] via shared medical record. This note will be forwarded to Lizy Capone MD. Return to Clinic: The patient is instructed to follow-up with me as needed. Jae Cagle MD documented in this encounterCleveland Clinic [facility]02-09-2023 Miscellaneous Notes* Telephone Encounter - Ralph Rodriguez - 05/15/2022 10:55 AM EST Procedure(s) being scheduled: 1.Are you diabetic No [...] No 9. Does this procedure require a drop hammer pile driver operator? Yes If yes, has patient been notified that a drop hammer pile driver operator is needed and must be present at [...] days prior to their first dose of theCOVID vaccine. They should not receive any procedure containing steroids in the time frame between their 1st and 2nd doses of the COVID vaccine. They should not receive a procedure containing steroids 14 days after their 2nd dose of the COVID vaccine.) Ralph Rodriguez documented in this encounterCleveland Clinic [facility]02-07-2023 History of Present illness Narrative* Alcon Santiago RT(R) - 05/13/2022 4:40 PM EST Radiology Service Progress Note PATIENT NAME: Mari Lopez DATE OF SERVICE: May 13, 2022 TIME: 4:33 PM PATIENT IDENTITY VERIFICATION COMPLETED USING TWO (2) IDENTIFIERS: Name and Date of confirmedby patient verbally. FALL SCREENING: Has the patient had 2 falls in the last year or 1 fall with injury or currently using an Ambulatory Assistive Device (Walker, Cane, Wheelchair, Crutches, etc.)? Yes, Patient High Riskfor Falls What interventions were put in place [...] 13, 2022 4:33 PM documented in this encounterCleveland Clinic [facility]02-07-2023 Nurse Note* Mari Umaña LPN - 05/13/2022 3:21 PM EST REVIEW OF SYSTEMS: General: The patient notes [...] last Mammogram screening? 2019 Last Colonoscopy: 2017 Mari Umaña LPN documented in this encounterCleveland Clinic [facility]01-31-2023 Miscellaneous Notes* Telephone Encounter - Alfred Casanova LPN - 05/06/2022 10:59 AM EST Left detailed message on secure identified voicemail. Pt only to return call /c any questions or concerns. Alfred Casanova LPN * Telephone Encounter - Noemy Wilson APRN.CNP - 05/06/2022 10:35 AM EST Can please let patient know that we received some of her stool testing back. It looks like she has an infection in her bowel called C. Diff. I went ahead and sent an antibiotic to the pharmacy. It isone pill by mouth 4 times daily X 10 days. Please advise that she shouldn't take any antidiarrheal medications. It is contagious, so if there is anyone else in the home and there is more than one bathroom, she should try to stick to one bathroom. Use good hand hygiene with soap/water. Please let us know if symptoms persist/worsen. Noemy Wilson APRN.CJ documented in this encounterCleveland Clinic [facility]01-25-2023 Miscellaneous Notes* Telephone Encounter - Miryam Orozco APRN.CNP - 04/30/2022 4:46 PM EST Noted, thank you. Miryam Orozco APRN.CJ * Telephone Encounter - Josselin Baxter RN - 04/30/2022 4:24 PM EST Attempted to contact patient. Patient not available but friend Alex available and took message. (Alex verified on pt's account-able to share information with). Provider's message given below. Alex states the additional stool kits were not picked up for the stool studies and will be picked up at the Lab on 05/01/22. Josselin Baxter RN * Telephone Encounter - Miryam Orozco APRN.CNP - 04/30/2022 3:52 PM EST Can you please call the patient and let her know that her stool test did come back positive for blood. I would keep upcoming appointment with general surgery to discuss. The other stool studies have not been ran at this time, can you please verify if she stopped at thelab to get testing supplies? Thank you. Miryam Orozco APRN.CNP documented in this encounterCleveland Clinic [facility]01-24-2023 History of Present illness Narrative* Weston Herman RT(R) - 04/29/2022 8:40 AM EST Radiology Service Progress Note PATIENT NAME: Mari oLpez DATE OF SERVICE: April 29, 2022 TIME: 8:40 AM PATIENT IDENTITY VERIFICATION COMPLETED USING TWO (2) IDENTIFIERS: Name and Date of confirmedby patient verbally. FALL SCREENING: Has the patient had 2 falls in the last year or 1 fall with injury or currently using an Ambulatory Assistive Device (Walker, Cane, Wheelchair, Crutches, etc.)? Yes, Patient High Riskfor Falls What interventions were put in place to prevent falls during this visit? Instructed Patient to Callfor Help if Needed, Offered Assistance with Transfers/Clothing, Instructed Patient to Remain Seated(Not on Exam Table) Until Exam, and Increased Observations by Caregivers PATIENT GENDER DATA: Female. status: : No status: NO. PATIENT RELEVANT IMPLANT DATA REVIEWED: Yes RADIOLOGY DEPARTMENT: MR; Exam(s) Completed: Spine: Thoracic spine and Lumbar spine PERIPHERAL IV DATA: Not applicable SIGNED BY: RT Jeremiah(Musa) April 29, 2022 8:40 AM documented in this encounterCleveland Clinic [facility]01-23-2023 Miscellaneous Notes* Telephone Encounter - Alex Lackey Ma - 04/28/2022 4:07 PM EST Pt notified. Alex Lackey Ma * Telephone Encounter - Lizy Capone MD - 04/28/2022 3:46 PM EST I am not able to add an MRI of the hip; since that is a separate test so she would need an extra appt if it is needed. Start with the MRI back as ordered and scheduled. Lizy Capone MD * Telephone Encounter - Dede Reynolds RN - 04/28/2022 8:51 AM EST Patient reports she is having MRI of back tomorrow and asking if provider can add the right hip, for MRI? States she is having pain in right hip also. Reports she tried to call pain management, Dr. Delgado, to ask this question but unable to reach that office. Reports she has great insurance and is notworried at all about them covering it. States you don't have to call her back, she will find out tomorrow when she has MRI back done, if right hip was added. documented in this encounterCleveland Clinic [facility]01-12-2023 Miscellaneous Notes* Telephone Encounter - Viridiana Russ LPN - 04/17/2022 10:54 AM EST Spoke with pt and information listed below given. Pt verbalizes understanding. Viridiana Russ LPN * Telephone Encounter - Lizy Capone MD - 04/17/2022 10:14 AM EST OK to refill as ordered Lizy Capone MD * Telephone Encounter - Alex Lackey Ma - 04/17/2022 9:40 AM EST Last office visit: 01/02/22 F/u scheduled: none Last refilled on: Ambien #30 with 2 refill on 01/20/22 Alex Lackey Ma * Telephone Encounter - Allison Do Pss - 04/17/2022 9:15 AM EST Patient has been identified by name and [...] advise. Allison Do Pss documented in this encounterCleveland Clinic [facility]01-11-2023 Miscellaneous Notes* Telephone Encounter - Mulugeta Jennings APRN.CJ - 04/16/2022 9:25 AM EST The following approved medication requests have been transmitted electronically. Requested Prescriptions Pending Prescriptions Disp Refills tolterodine ER (DETROL LA) 4 mg 24 hr capsule [Pharmacy Med Name: TOLTERODINE TART ER 4 MG CAP] 90 capsule 3 Sig: TAKE 1 CAPSULE BY MOUTH ONCE DAILY Mulugeta Jennings APRN.CJ * Telephone Encounter - Minna Blue LPN - 04/16/2022 8:53 AM EST Patient phones requesting refills as follows: Requested Prescriptions Pending Prescriptions Disp Refills tolterodine ER (DETROL LA) 4 mg 24 hr capsule [Pharmacy Med Name: TOLTERODINE TART ER 4 MG CAP] 90 capsule 3 Sig: TAKE 1 CAPSULE BY MOUTH ONCE DAILY EDNY-01/02/22 Labs-03/19/22 NOV-none med filled 05/03/21 Please review and advise. Minna Blue LPN documented in this encounterCleveland Clinic [facility]11-29-2022 History of Present illness Narrative* Naatlia Fowler - 03/04/2022 5:23 PM EST POPULATION HEALTH NAVIGATION OUTREACH Action/ 1st attempt: Left message for patient including [...] 04, 2022 5:23 PM documented in this encounterCleveland Clinic [facility]11-15-2022 Miscellaneous Notes* Telephone Encounter - Alex Lackey Ma - 02/18/2022 8:51 AM EST Rx mailed to pt home. Alex Lackey Ma * Telephone Encounter - Lizy Capone MD - 02/17/2022 5:20 PM EST Rx done Lizy Capone MD * Telephone Encounter - Viridiana Russ LPN - 02/13/2022 1:51 PM EST Pt called and is requesting a prescription [...] pm. Viridiana Russ LPN documented in this encounterCleveland Clinic [facility]10-27-2022 Miscellaneous Notes* Telephone Encounter - Bre Lamar - 01/30/2022 4:17 PM EDT 1.Are you diabetic No 2. Are you [...] If yes, date(s) received: Printed and explained topatient (Patient should not receive a procedure including steroids 14 days prior to their first dose of theCOVID vaccine. They should not receive any procedure containing steroids in the time frame between their 1st and 2nd doses of the COVID vaccine. They should not receive a procedure containing steroids 14 days after their 2nd dose of the COVID vaccine.) Bre Lamar documented in this encounterCleveland Clinic [facility]10-27-2022 History of Present illness Narrative* Kaleigh Rodney MA - 01/30/2022 3:48 PM EDT Review of Systems Constitutional: Negative for activity [...] suicidal ideas. The patient is not nervous/anxious. * Roque Delgado MD - 01/30/2022 12:18 PM EDT [facility] General Today's Date: 01/30/2022 Last Visit: 11/28/2021 Name: Mari Lopez : 1940 Purpose: Follow-up Encounter Chief complaint: Thoracic and low back pain Interval History: Mari Lopez returns today for a follow-up encounter, reporting that since last encounter, the overall pain and functional disability arising from the chief complaint has worsened. Pain continues to be focused in the lumbar region, radiates into the bilateral flanks. No radiationinto the lower limbs. Hot tub closed for [...] tests were obtained, with relevant findings reported below:None Recall: 11/2021 - PT: 13 visits between [...] Years Frequency - Continuous Intervention/Comfort measure - Reposition;Relaxation;Positioning Comments - - Pain Assessment Reassessment - [...] bony destructive process. Lumbar: There are five dvr-lzx-vfacszt lumbar vertebrae. No acute fracture or subluxations [...] All prescriptions have been APPROPRIATELY filled. No suspiciousactivity was identified. By Roque Delgado MD 01/30/2022 Ambien monthly Last Drug screen: [...] facet-mediated. No relief to date with PT Mari Lopez would benefit from the following to decrease pain, improve function and/or work participation, and improve quality of life: -Interventional Procedure: Radiofrequency Ablation (RFA) bilateral L4-5 and L5- S1 under fluoroscopic guidance The risks, benefits, alternative treatment options and prognosis of the procedure were discussed and all of the patient's questions/concerns were addressed to the patient s satisfaction. Unless explicitly instructed otherwise, patient was advised that they will need a drop hammer pile driver operator for after the procedure and that if no drop hammer pile driver operator is available and on site at the time of the procedure, the procedure will be cancelled. For any anticoagulants, the patient was advised on whether to continue or hold for this procedure. The patient expressed understanding and gave verbal consent to proceed. Medications: Gabapentin 300mg TID Continue Tylenol 1gm TID prn as needed SANDRA-7/PHQ-2, and ORT: 09/19/2021 Completed and reviewed, moderate risk Functional Scientologist: Physical Therapy (Land-based) - Continue Additional Studies: [...] medical decision making from today's date. Roque HODGSONA [facility] documented in this encounterCleveland Clinic [facility]10-17-2022 Miscellaneous Notes* Telephone Encounter - Mulugeta Jennings APRN.CNP - 01/20/2022 1:58 PM EDT Approved. PDMP website checked and validated. All prescriptions have been APPROPRIATELY filled. No suspiciousactivity was identified. 01/20/2022 by Mulugeta Jennings APRN.CNP The following approved medication requests have been transmitted electronically. Requested Prescriptions Signed Prescriptions Disp Refills zolpidem (AMBIEN) 10 mg 30 tablet 2 Sig: Take 1 tablet by mouth at bedtime as needed for up to 90 days. Authorizing Provider: MULUGETA JENNINGS APRN.CNP * Telephone Encounter - Alex Lackey Ma - 01/20/2022 1:48 PM EDT Last office visit: 01/02/22 F/u scheduled: none Last refilled on: Ambien #30 with 2 refill on 10/24/21 Alex Lackey Ma * Telephone Encounter - Shruthi Robbins Pss - 01/20/2022 1:27 PM EDT Patient has been identified by name and [...] in. Shruthi Robbins Pss documented in this encounterCleveland Clinic [facility]10-06-2022 Miscellaneous Notes* Telephone Encounter - Minna Blue LPN - 01/09/2022 11:03 AM EDT Patient notified of results, verbalizes understanding of instructions. Minna Blue LPN * Telephone Encounter - Miryam Orozco APRN.CJ - 01/08/2022 7:11 PM EDT Can you please call the patient and let her know that I reviewed her lab and ultrasound results. Ultrasound of abdomen was within normal limits. No ascites were noted. Her BNP however has gone up to 783. This can be significant for congestive heart failure. 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 Lab results will be faxed to their office. Mild improvement with kidney function however I still would recommend that she follow-up with nephrology. Please let me know if she has any questions. Thank you. Miryam Orozco APRN.DIGITAL DATA ANALYST documented in this encounterCleveland Clinic Children'[facility]10-05-2022 Nurse Note* Carlito Richards RN - 01/08/2022 11:46 AM EDT Patient denies any numbness/tingling. documented in this encounterCleveland Clinic Children'S [facility] Rehabilitation10-05-2022 Surgical operation note* Operative Report - Roque Delgado MD - 01/08/2022 11:16 AM EDT OPERATIVE/PROCEDURE REPORT LOG ID: [id number] SURGERY/PROCEDURE DATE: 01/08/2022 INCISION/PROCEDURE START TIME: 11:20 AM INCISION CLOSE/PROCEDURE END TIME: 11:34 AM SURGEON(S)/PROCEDURALIST(S) AND CARDIOPULMONARY TECHNOLOGIST CHIEF(S): Surgeon(s) and Role: * Roque Delgado MD - Primary No Additional Staff SURGERY/PROCEDURE(S): [...] of the lumbar facet joints could be fluoroscopicallyvisualized, and the correct position of the needle [...] surgeon/proceduralist performed the entire procedure. SIGNATURE: Roque Delgado MD PATIENT NAME: Mari Lopez DATE: January 08, 2022 TIME: 11:38 AM documented in this encounterCleveland Clinic [facility]10-05-2022 History and physical note * Roque Delgado MD - 01/08/2022 10:39 AM EDT LOCAL PROCEDURE HISTORY & PHYSICAL EXAM SERVICE [...] capsule by mouth once daily. 01/07/2022 Yes Xhwpxkiobbl-Qulljeiyp-Rxu C-Mn (GLUCOSAMINE CHONDROITIN MAXSTR) 500-400 mg cap Take 1 capsule by mouth three times daily. 01/07/2022 Yes lisinopril-hydroCHLOROthiazide (PRINZIDE,ZESTORETIC) 10-12.5 mg per tablet Take 1 tablet by mouth once daily. Yes DAILY-LUISITO tablet TAKE 1 TABLET BY MOUTH ONCE DAILY. 01/07/2022 Yes nfnoine-kdaagsgen-lqczwct D3 (CALCIUM 500+D) 500 mg(1,250mg) -200 unit [...] VTE Prophylaxis: VTE prophylaxis appropriate SIGNATURE: Roque Delgado MD PATIENT NAME: Mari Lopez DATE: January 08, 2022 TIME: 10:40 AM documented in this encounterCleveland Clinic [facility]10-04-2022 Miscellaneous Notes* Telephone Encounter - Lora Najera RN - 01/07/2022 11:48 AM EDT Patient calls and requests that nephrology referral, office notes, and labs to be faxed to Dr. Murillo at [phone]. Faxed as requested. Lora Najera RN documented in this encounterCleveland Clinic [facility]10-03-2022 History of Present illness Narrative* Allison Pryor, PT - 01/06/2022 7:50 PM EDT Episode Visit Count: 9 Therapist That Will Accept/Oversee The Plan Of Care: Allison Pryor Start of Care Date: 11/22/21 Onset Date: 11/23/19 (past 2 years has been worsening) Plan of Care Certification Date: 11/22/21 Next Certification Due Date: 01/22/22 Patient Identified by Name and Date of : Yes REHABILITATION AND SPORTS THERAPY PHYSICAL THERAPY TREATMENT NOTE ASSESSMENT: Mari Lopez tolerated the session with no issues. She demonstrated improvements in report of relief following MLD treatments. The patient will continue to benefit from ongoing skilled physical therapy to progress toward set goals. PLAN FOR NEXT VISIT: B LE MLD and exercise. SUBJECTIVE: Patient Reason for Visit: Pt states her legs feel really good for about 4 hours afterteh MLD sessions. She notes she is still in process of obtianing compression pump for home use. Pain: Pain Pain Level: 0 Post Treatment Pain Post Treatment Pain Level: 0 OBJECTIVE MEASURES WITH LEVEL OF FUNCTION: Lymphedema Skin Comments:: tissue soft except for scar areas L>R knees. No pitting observed. TREATMENT: Therapeutic Exercise: 1: Kibin seated stepper, seat 14, x 5 min [...] 43 Allison Pryor PT documented in this encounterCleveland Clinic [facility] Rehabilitation09-29-2022 Instructions* Patient Instructions* Miryam Orozco APRN.[facility] - 01/02/2022 7:32 AM EDT 1.) Get repeat labs completed either Thursday or Thursday. Schedule appointment for ultrasound. 2.) Increase Lasix to 60 mg daily. Elevate the legs. 3.) Stay well hydrated 4.) Watch salt and processed foods in the diet. 5.) Recommend follow up with Dr. Jackson. 6.) Follow up pending test results Schedule appointment with Nephrology. documented in this encounterCleveland Clinic Children'[facility]09-29-2022 History of Present illness Narrative* Miryam Orozco APRN.CNP - 01/02/2022 7:00 AM EDT This is a 81 year old female who presents today with: Patient presents with: Acute Visit: bilat leg swelling HISTORY OF PRESENT ILLNESS: Mari Lopez is a 81 year old female. Patient presents with: Acute Visit: bilat leg swelling Here in the office for lower leg swelling. Leg swelling started to get worse about 3 months ago. Taking metoprolol succinate ER 50 mg daily, Lasix 40 mg daily. Stopped taking Prinzide 10/12.5 daily. Due to LLE cannot get compression sock on. Will get SOB with exertion at times. No difficulty with sleep. Denies any chest pain, palpitatations, or dizziness. Has had a 33 lbs weight gain since 12/26/2021 Patient had office visit with [facility] due to lymphedema, labs were ordered, BNPelevated at 244.1, Per provider note patient has new abdominal ascites in addition to bilateral lower extremity lymphedema. Patient does follow with cardiology at [facility], Dr. Jackson. Bun 43, Creatinine: [...] CONDYLE&PLATU MEDIAL&LAT COMPARTMENTS 1990 bilateral total knee s([place]) ARTHRP KNE CONDYLE&PLATU MEDIAL&LAT COMPARTMENTS 10/24/04 bilateral total knee revisions DELIVERY ONLY , low cervical CHOLECYSTECTOMY COLONOSCOPY FLX DX W/COLLJ SPEC WHEN PFRMD 11/17/2017 Colonoscopy DEBRIDEMENT SUBCUTANEOUS TISSUE 20 SQ CM/< 02/17/07 LEFT LEG DEBRIDEMENT SUBCUTANEOUS TISSUE 20 SQ CM/< [id number] LEFT LEG DEBRIDEMENT SUBCUTANEOUS TISSUE 20 SQ CM/< [id number] LEFT LEG DEBRIDEMENT SUBCUTANEOUS TISSUE 20 SQ CM/< [id number] LEFT LEG DEBRIDEMENT SUBCUTANEOUS TISSUE 20 SQ CM/< [id number] LEFT LEG DEBRIDEMENT SUBCUTANEOUS TISSUE 20 SQ CM/< 03/03/07 LEFT LEG ESOPHAGOGASTRODUODENOSCOPY TRANSORAL DIAGNOSTIC 11/17/2017 EGD GASTRIC BYPASS 07/08 HEMORRHOIDECTOMY INTERNAL RUBBER BAND LIGATIONS HYSTEROSCOPY BX W/WO D&C 01/07/2018 PAST SURGICAL HISTORY OF 04/10/2016 [place] and new knee cap put in right [...] Take 1 capsule by mouth once daily. Kznoaqfkuto-Ghbpxwhdw-Spl C-Mn (GLUCOSAMINE CHONDROITIN MAXSTR) 500-400 mg cap Take 1 capsule by mouth three times daily. lisinopril-hydroCHLOROthiazide (PRINZIDE,ZESTORETIC) 10-12.5 mg per tablet Take 1 tablet by mouth once daily. COMPOUNDED PRESCRIPTION Stair lift DAILY-LUISITO tablet TAKE 1 TABLET BY MOUTH ONCE DAILY. mmazxeq-iadojxbxj-yhlksbj D3 (CALCIUM 500+D) 500 mg(1,250mg) -200 unit [...] were discussed and patient voices understanding. Miryam Orozco APRN.DIGITAL DATA ANALYST This note was partially generated using Dragon voice recognition system. Note was reviewed for accuracy. There may be minor misspellings or grammar miscues with Dragon voice recognition. documented in this encounterCleveland Clinic Children'[facility]09-28-2022 History of Present illness Narrative* Allison Pryor, PT - 01/01/2022 11:01 AM EDT Episode Visit Count: 8 Therapist That Will Accept/Oversee The Plan Of Care: Allison Pryor Start of Care Date: 11/22/21 Onset Date: 11/23/19 (past 2 years has been worsening) Plan of Care Certification Date: 11/22/21 Next Certification Due Date: 01/22/22 Patient Identified by Name and Date of : Yes REHABILITATION AND SPORTS THERAPY PHYSICAL THERAPY TREATMENT NOTE ASSESSMENT: Mari Lopez tolerated the session with no issues. She [...] on seated stepper. TREATMENT: Therapeutic Exercise: 1: SCREEMOFit seated stepper, seat 14, x 5 min [...] surgery. Pt completed abdominal breathing prior to startingMLD. Skilled Intervention: Manual skills to improve joint mobility, ROM, and decrease pain. Utilized anatomy knowledge of the therapist, and assessment of patient's response to intervention. Manual techniques to facilitate lymphatic dynamics and improve condition of tissue. Billing Therapeutic Exercise Treatment Minutes: 5 Manual TherapyTreatment Minutes: 40 Total Treatment Time Minutes (timed/untimed): 45 Allison Pryor PT documented in this encounterCleveland Clinic Children'[facility]09-22-2022 Instructions* Patient Instructions* Avis Marrufo APRN.CNP - 12/26/2021 2:48 PM EDT Activity as tolerated Use Ice and/or heat as tolerated as needed documented in this encounterCleveland Clinic Children'S [facility] For Rehabilitation09-22-2022 History of Present illness Narrative* Avis Marrufo APRN.CNP - 12/26/2021 2:38 PM EDT AMBULATORY TELEPHONE VISIT Mari Lopez has consented to this telephone encounter. Persons Present: patient Chief Complaint/Reason: Injection Follow up HPI: Patient underwent her initial diagnostic Lumbar MBB BL L4/5, L5/S1 on 12/25/[address] Delgado. Patient reports >75% relief from the injection. She continues to have some mild relief even today.During this time the patient was able to tolerate and participate in their ADL's with less pain anddifficulty. Reports pain has significantly improved. She is very pleased with her response Today the patient rates her pain 5/10, describes pain as intermittent, depends on her activity. Prior to the injection her pain was constant. Denies new or worsening concerns today. Ht 157.5 cm (5' 2) Wt 104.3 kg (230 lb) BMI 42.07 [...] Total Time Spent: 12 minutes Avis Marrufo APRN.DIGITAL DATA ANALYST Review of Systems Constitutional: Negative for chills, [...] All prescriptions have been APPROPRIATELY filled. No suspiciousactivity was identified. 12/26/2021 by Avis Marrufo APRN.DIGITAL DATA ANALYST documented in this encounterCleveland Clinic [facility]09-21-[facility]22 Surgical operation note* Operative Report - Roque Delgado MD - 12/25/2021 12:37 PM EDT OPERATIVE/PROCEDURE REPORT LOG ID: [id number] SURGERY/PROCEDURE DATE: 12/25/2021 INCISION/PROCEDURE START TIME: 12:44 PM INCISION CLOSE/PROCEDURE END TIME: 12:54 PM SURGEON(S)/PROCEDURALIST(S) AND CARDIOPULMONARY TECHNOLOGIST CHIEF(S): Surgeon(s) and Role: * Roque Delgado MD - Primary No Additional Staff SURGERY/PROCEDURE(S): [...] of the lumbar facet joints could be fluoroscopicallyvisualized, and the correct position of the needle [...] surgeon/proceduralist performed the entire procedure. SIGNATURE: Roque Delgado MD PATIENT NAME: Mari Lopez DATE: December 25, 2021 TIME: 12:57 PM documented in this encounterCleveland Clinic [facility]09-21-2022 History and physical note * Roque Delgado MD - 12/25/2021 12:28 PM EDT UPDATED HISTORY AND PHYSICAL EXAMINATION SERVICE DATE: 12/25/2021 SERVICE TIME: 12:28 PM PHYSICAL EXAM MUST BE COMPLETED ON ADMISSION The History and Physical (completed in the past 30 days) has been reviewed and the patient has beenexamined. The contents accurately reflect the patient's condition [...] Electronic Medical Record dated 11/28/2021. SIGNATURE: Roque Delgado MD PATIENT NAME: Mari Lopez DATE: December 25, 2021 TIME: 12:28 PM documented in this encounterCleveland Clinic [facility]09-19-2022 Miscellaneous Notes* Telephone Encounter - Roque Delgado MD - 12/23/2021 3:54 PM EDT Neurontin: Has refills at pharmacy. * Telephone Encounter - Felicia Gabriel MA - 12/23/2021 3:13 PM EDT Patient has several refills at pharmacy. Felicia Gabriel MA documented in this encounterCleveland Clinic [facility]09-12-2022 History of Present illness Narrative* Allison Pryor PT - 12/16/2021 4:11 PM EDT Episode Visit Count: 5 Therapist That Will Accept/Oversee The Plan Of Care: Allison Pryor Start of Care Date: 11/22/21 Onset Date: 11/23/19 (past 2 years has been worsening) Plan of Care Certification Date: 11/22/21 Next Certification Due Date: 01/22/22 Patient Identified by Name and Date of : Yes REHABILITATION AND SPORTS THERAPY PHYSICAL THERAPY TREATMENT NOTE ASSESSMENT: Mari Lopez tolerated the session with no issues. She [...] % : 0 TREATMENT: Therapeutic Exercise: 1: SciFit seated stepper, seat 14, x 5 min (Discussed current progress and subjective report duringthis time.) Skilled Intervention: Patient was educated in [...] surgery. Pt completed abdominal breathing prior to startingMLD. Skilled Intervention: Manual skills to improve joint mobility, ROM, and decrease pain. Utilized anatomy knowledge of the therapist, and assessment of patient's response to intervention. Manual techniques to facilitate lymphatic dynamics and improve condition of tissue. Billing Therapeutic Exercise Treatment Minutes: 5 Manual TherapyTreatment Minutes: 43 Total Treatment Time Minutes (timed/untimed): 48 Allison Pryor PT documented in this encounterCleveland Clinic [facility]09-07-2022 History of Present illness Narrative* Allison Pryor PT - 12/11/2021 4:40 PM EDT Episode Visit Count: 4 Therapist That Will Oversee The Plan Of Care: Allison Pryor Start of Care Date: 11/22/21 Onset Date: 11/23/19 (past 2 years has been worsening) Plan of Care Certification Date: 11/22/21 Next Certification Due Date: 01/22/22 Patient Identified by Name and Date of : Yes REHABILITATION AND SPORTS THERAPY PHYSICAL THERAPY TREATMENT NOTE ASSESSMENT: Mari Lopez tolerated the session with no issues. She [...] surgery. Pt completed abdominal breathing prior to startingMLD. Skilled Intervention: Manual skills to improve joint mobility, ROM, and decrease pain. Utilized anatomy knowledge of the therapist, and assessment of patient's response to intervention. Manual techniques to facilitate lymphatic dynamics and improve condition of tissue. Billing Manual TherapyTreatment Minutes: 42 Total Treatment Time Minutes (timed/untimed): 42 Allison Pryor PT documented in this encounterCleveland Clinic [facility]08-29-2022 History of Present illness Narrative* Allison Pryor PT - 12/02/2021 7:14 PM EDT Episode Visit Count: 2 Therapist That Will Oversee The Plan Of Care: Allison Pryor Start of Care Date: 11/22/21 Onset Date: 11/23/19 (past 2 years has been worsening) Plan of Care Certification Date: 11/22/21 Next Certification Due Date: 01/22/22 Patient Identified by Name and Date of : Yes REHABILITATION AND SPORTS THERAPY PHYSICAL THERAPY TREATMENT NOTE ASSESSMENT: Mari Lopez tolerated the session with no issues. She demonstrated improvements in goodcompliance with HEP and subjective reports of lower [...] 43 Allison Pryor PT documented in this encounterCleveland Clinic [facility]08-23-2022 Miscellaneous Notes* Telephone Encounter - Lizy Capone MD - 11/26/2021 2:39 PM EDT OK to refill as ordered Lizy Capone MD * Telephone Encounter - Kayla Castro - 11/26/2021 11:34 AM EDT Patient has been identified by name and date of : Yes Requested Prescriptions Pending Prescriptions Disp Refills furosemide (LASIX) 20 mg tablet 30 tablet 11 Sig: Take 1 tablet by mouth once daily. RX INSTRUCTIONS: Patient aware RX will be sent to pharmacy. No need to notify patient. Kayla Matthew documented in this encounterCleveland Clinic [facility]08-19-2022 History of Present illness Narrative* Allison Pryor, PT - 11/22/2021 4:16 PM EDT Episode Visit Count: 1 Therapist That Will Oversee The Plan Of Care: Allison Pryor Start of Care Date: 11/22/21 Onset Date: 11/23/19 (past 2 years has been worsening) Plan of Care Certification Date: 11/22/21 Next Certification Due Date: 01/22/22 Patient Identified by Name and Date of : Yes REHABILITATION AND SPORTS THERAPY PHYSICAL THERAPY EVALUATION PLAN OF CARE: Assessment: Mari Lopez presents with diagnosis of lymphedema that interferes with physical activities;dressing (walking d/t back pain, wearing shoes) . She presents with impairments in edema management and overall function. Prognosis for therapy is Excellent due to: current objective clinical prese ntation;positive past response to therapy;good support system/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 hernia without mention of obstruction or gangrene 03/26/2004 07/01/2007 THROMBOPHLEBITIS NOS(aka DVT) 07/21/2003 PULMON EMBOLISM/INFARCT(aka EMBOLISM) 07/21/2003 08/21/2009 documented as of this encounter (statuses as of 10/22/2021) [facility] of Past illness Narrative* Problem Noted Date Resolved Date Screening for colon cancer 11/24/201607/12 Overview: Added automatically from request for surgery [id number] Pain in joint, lower leg 11/14/2008 010 MASS IN SUBCUTANEOUS TISSUE 07/21/200808/04 Non-healing surgical wound 03/16/200705/18 Other injury of other sites of trunk 01/16/2006 07/01/2007 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 07/12/2021 Other ventral hernia without mention of obstruction or gangrene 03/26/2004 07/01/2007 THROMBOPHLEBITIS NOS(aka DVT) 07/21/2003 PULMON EMBOLISM/INFARCT(aka EMBOLISM) 07/21/2003 08/21/2009 documented as of this encounter (statuses as of 10/22/2021) [facility] of Past illness Narrative* Problem Noted Date Resolved Date Screening for colon cancer 11/24/201607/12 Overview: Added automatically from request for surgery [id number] Pain in joint, lower leg 11/14/2008 010 MASS IN SUBCUTANEOUS TISSUE 07/21/200808/04 Non-healing surgical wound 03/16/200705/18 Other injury of other sites of trunk 01/16/2006 07/01/2007 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 07/12/2021 Other ventral hernia without mention of obstruction or gangrene 03/26/2004 07/01/2007 THROMBOPHLEBITIS NOS(aka DVT) 07/21/2003 PULMON EMBOLISM/INFARCT(aka EMBOLISM) 07/21/2003 08/21/2009 documented as of this encounter (statuses as of 10/24/2021) [facility] History of Past illness Narrative* Problem Noted Date Resolved Date Screening for colon cancer 11/24/201607/12 Overview: Added automatically from request for surgery [id number] Pain in joint, lower leg 11/14/2008 010 MASS IN SUBCUTANEOUS TISSUE 07/21/200808/04 Non-healing surgical wound 03/16/200705/18 Other injury of other sites of trunk 01/16/2006 07/01/2007 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 07/12/2021 Other ventral hernia without mention of obstruction or gangrene 03/26/2004 07/01/2007 THROMBOPHLEBITIS NOS(aka DVT) 07/21/2003 PULMON EMBOLISM/INFARCT(aka EMBOLISM) 07/21/2003 08/21/2009 documented as of this encounter (statuses as of 11/05/2021) [facility] of Past illness Narrative* Problem Noted Date Resolved Date Screening for colon cancer 11/24/201607/12 Overview: Added automatically from request for surgery [id number] Pain in joint, lower leg 11/14/2008 010 MASS IN SUBCUTANEOUS TISSUE 07/21/200808/04 Non-healing surgical wound 03/16/200705/18 Other injury of other sites of trunk 01/16/2006 07/01/2007 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 07/12/2021 Other ventral hernia without mention of obstruction or gangrene 03/26/2004 07/01/2007 THROMBOPHLEBITIS NOS(aka DVT) 07/21/2003 PULMON EMBOLISM/INFARCT(aka EMBOLISM) 07/21/2003 08/21/2009 documented as of this encounter (statuses as of 11/12/2021) [facility] of Past illness Narrative* Problem Noted Date Resolved Date Screening for colon cancer 11/24/201607/12 Overview: Added automatically from request for surgery [id number] Pain in joint, lower leg 11/14/2008 010 MASS IN SUBCUTANEOUS TISSUE 07/21/200808/04 Non-healing surgical wound 03/16/200705/18 Other injury of other sites of trunk 01/16/2006 07/01/2007 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 07/12/2021 Other ventral hernia without mention of obstruction or gangrene 03/26/2004 07/01/2007 THROMBOPHLEBITIS NOS(aka DVT) 07/21/2003 PULMON EMBOLISM/INFARCT(aka EMBOLISM) 07/21/2003 08/21/2009 documented as of this encounter (statuses as of 11/13/2021) [facility] History of Past illness Narrative* Problem Noted Date Resolved Date Screening for colon cancer 11/24/201607/12 Overview: Added automatically from request for surgery [id number] Pain in joint, lower leg 11/14/2008 010 MASS IN SUBCUTANEOUS TISSUE 07/21/200808/04 Non-healing surgical wound 03/16/200705/18 Other injury of other sites of trunk 01/16/2006 07/01/2007 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 07/12/2021 Other ventral hernia without mention of obstruction or gangrene 03/26/2004 07/01/2007 THROMBOPHLEBITIS NOS(aka DVT) 07/21/2003 PULMON EMBOLISM/INFARCT(aka EMBOLISM) 07/21/2003 08/21/2009 documented as of this encounter (statuses as of 11/22/2021) [facility] of Past illness Narrative* Problem Noted Date Resolved Date Screening for colon cancer 11/24/201607/12 Overview: Added automatically from request for surgery [id number] Pain in joint, lower leg 11/14/2008 010 MASS IN SUBCUTANEOUS TISSUE 07/21/200808/04 Non-healing surgical wound 03/16/200705/18 Other injury of other sites of trunk 01/16/2006 07/01/2007 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 07/12/2021 Other ventral hernia without mention of obstruction or gangrene 03/26/2004 07/01/2007 THROMBOPHLEBITIS NOS(aka DVT) 07/21/2003 PULMON EMBOLISM/INFARCT(aka EMBOLISM) 07/21/2003 08/21/2009 documented as of this encounter (statuses as of 11/26/2021) [facility] of Past illness Narrative* Problem Noted Date Resolved Date Screening for colon cancer 11/24/201607/12 Overview: Added automatically from request for surgery [id number] Pain in joint, lower leg 11/14/2008 010 MASS IN SUBCUTANEOUS TISSUE 07/21/200808/04 Non-healing surgical wound 03/16/200705/18 Other injury of other sites of trunk 01/16/2006 07/01/2007 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 07/12/2021 Other ventral hernia without mention of obstruction or gangrene 03/26/2004 07/01/2007 THROMBOPHLEBITIS NOS(aka DVT) 07/21/2003 PULMON EMBOLISM/INFARCT(aka EMBOLISM) 07/21/2003 08/21/2009 documented as of this encounter (statuses as of 12/02/2021) [facility] of Past illness Narrative* Problem Noted Date Resolved Date Screening for colon cancer 11/24/201607/12 Overview: Added automatically from request for surgery [id number] Pain in joint, lower leg 11/14/2008 010 MASS IN SUBCUTANEOUS TISSUE 07/21/200808/04 Non-healing surgical wound 03/16/200705/18 Other injury of other sites of trunk 01/16/2006 07/01/2007 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 07/12/2021 Other ventral hernia without mention of obstruction or gangrene 03/26/2004 07/01/2007 THROMBOPHLEBITIS NOS(aka DVT) 07/21/2003 PULMON EMBOLISM/INFARCT(aka EMBOLISM) 07/21/2003 08/21/2009 documented as of this encounter (statuses as of 12/03/2021) [facility] of Past illness Narrative* Problem Noted Date Resolved Date Screening for colon cancer 11/24/201607/12 Overview: Added automatically from request for surgery [id number] Pain in joint, lower leg 11/14/2008 010 MASS IN SUBCUTANEOUS TISSUE 07/21/200808/04 Non-healing surgical wound 03/16/200705/18 Other injury of other sites of trunk 01/16/2006 07/01/2007 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 07/12/2021 Other ventral hernia without mention of obstruction or gangrene 03/26/2004 07/01/2007 THROMBOPHLEBITIS NOS(aka DVT) 07/21/2003 PULMON EMBOLISM/INFARCT(aka EMBOLISM) 07/21/2003 08/21/2009 documented as of this encounter (statuses as of 12/11/2021) [facility] Past illness Narrative* Problem Noted Date Resolved Date Screening for colon cancer 11/24/201607/12 Overview: Added automatically from request for surgery [id number] Pain in joint, lower leg 11/14/2008 010 MASS IN SUBCUTANEOUS TISSUE 07/21/200808/04 Non-healing surgical wound 03/16/200705/18 Other injury of other sites of trunk 01/16/2006 07/01/2007 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 07/12/2021 Other ventral hernia without mention of obstruction or gangrene 03/26/2004 07/01/2007 THROMBOPHLEBITIS NOS(aka DVT) 07/21/2003 PULMON EMBOLISM/INFARCT(aka EMBOLISM) 07/21/2003 08/21/2009 documented as of this encounter (statuses as of 12/16/2021) [facility] illness Narrative* Problem Noted Date Resolved Date Screening for colon cancer 11/24/201607/12 Overview: Added automatically from request for surgery [id number] Pain in joint, lower leg 11/14/2008 010 MASS IN SUBCUTANEOUS TISSUE 07/21/200808/04 Non-healing surgical wound 03/16/200705/18 Other injury of other sites of trunk 01/16/2006 07/01/2007 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 07/12/2021 Other ventral hernia without mention of obstruction or gangrene 03/26/2004 07/01/2007 THROMBOPHLEBITIS NOS(aka DVT) 07/21/2003 PULMON EMBOLISM/INFARCT(aka EMBOLISM) 07/21/2003 08/21/2009 documented as of this encounter (statuses as of 12/23/2021) [facility] Past illness Narrative* Problem Noted Date Resolved Date Screening for colon cancer 11/24/201607/12 Overview: Added automatically from request for surgery [id number] Pain in joint, lower leg 11/14/2008 010 MASS IN SUBCUTANEOUS TISSUE 07/21/200808/04 Non-healing surgical wound 03/16/200705/18 Other injury of other sites of trunk 01/16/2006 07/01/2007 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 07/12/2021 Other ventral hernia without mention of obstruction or gangrene 03/26/2004 07/01/2007 THROMBOPHLEBITIS NOS(aka DVT) 07/21/2003 PULMON EMBOLISM/INFARCT(aka EMBOLISM) 07/21/2003 08/21/2009 documented as of this encounter (statuses as of 12/26/2021) [facility] Past illness Narrative* Problem Noted Date Resolved Date Screening for colon cancer 11/24/201607/12 Overview: Added automatically from request for surgery [id number] Pain in joint, lower leg 11/14/2008 010 MASS IN SUBCUTANEOUS TISSUE 07/21/200808/04 Non-healing surgical wound 03/16/200705/18 Other injury of other sites of trunk 01/16/2006 07/01/2007 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 07/12/2021 Other ventral hernia without mention of obstruction or gangrene 03/26/2004 07/01/2007 THROMBOPHLEBITIS NOS(aka DVT) 07/21/2003 PULMON EMBOLISM/INFARCT(aka EMBOLISM) 07/21/2003 08/21/2009 documented as of this encounter (statuses as of 12/26/2021) [facility] History of Past illness Narrative* Problem Noted Date Resolved Date Screening for colon cancer 11/24/201607/12 Overview: Added automatically from request for surgery [id number] Pain in joint, lower leg 11/14/2008 010 MASS IN SUBCUTANEOUS TISSUE 07/21/200808/04 Non-healing surgical wound 03/16/200705/18 Other injury of other sites of trunk 01/16/2006 07/01/2007 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 07/12/2021 Other ventral hernia without mention of obstruction or gangrene 03/26/2004 07/01/2007 THROMBOPHLEBITIS NOS(aka DVT) 07/21/2003 PULMON EMBOLISM/INFARCT(aka EMBOLISM) 07/21/2003 08/21/2009 documented as of this encounter (statuses as of 01/01/2022) [facility] History of Past illness Narrative* Problem Noted Date Resolved Date Screening for colon cancer 11/24/201607/12 Overview: Added automatically from request for surgery [id number] Pain in joint, lower leg 11/14/2008 010 MASS IN SUBCUTANEOUS TISSUE 07/21/200808/04 Non-healing surgical wound 03/16/200705/18 Other injury of other sites of trunk 01/16/2006 07/01/2007 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 07/12/2021 Other ventral hernia without mention of obstruction or gangrene 03/26/2004 07/01/2007 THROMBOPHLEBITIS NOS(aka DVT) 07/21/2003 PULMON EMBOLISM/INFARCT(aka EMBOLISM) 07/21/2003 08/21/2009 documented as of this encounter (statuses as of 01/02/2022) [facility] History of Past illness Narrative* Problem Noted Date Resolved Date Screening for colon cancer 11/24/201607/12 Overview: Added automatically from request for surgery [id number] Pain in joint, lower leg 11/14/2008 010 MASS IN SUBCUTANEOUS TISSUE 07/21/200808/04 Non-healing surgical wound 03/16/200705/18 Other injury of other sites of trunk 01/16/2006 07/01/2007 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 07/12/2021 Other ventral hernia without mention of obstruction or gangrene 03/26/2004 07/01/2007 THROMBOPHLEBITIS NOS(aka DVT) 07/21/2003 PULMON EMBOLISM/INFARCT(aka EMBOLISM) 07/21/2003 08/21/2009 documented as of this encounter (statuses as of 01/04/2022) [facility] History of Past illness Narrative* Problem Noted Date Resolved Date Screening for colon cancer 11/24/201607/12 Overview: Added automatically from request for surgery [id number] Pain in joint, lower leg 11/14/2008 010 MASS IN SUBCUTANEOUS TISSUE 07/21/200808/04 Non-healing surgical wound 03/16/200705/18 Other injury of other sites of trunk 01/16/2006 07/01/2007 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 07/12/2021 Other ventral hernia without mention of obstruction or gangrene 03/26/2004 07/01/2007 THROMBOPHLEBITIS NOS(aka DVT) 07/21/2003 PULMON EMBOLISM/INFARCT(aka EMBOLISM) 07/21/2003 08/21/2009 documented as of this encounter (statuses as of 01/07/2022) [facility] History of Past illness Narrative* Problem Noted Date Resolved Date Screening for colon cancer 11/24/201607/12 Overview: Added automatically from request for surgery [id number] Pain in joint, lower leg 11/14/2008 010 MASS IN SUBCUTANEOUS TISSUE 07/21/200808/04 Non-healing surgical wound 03/16/200705/18 Other injury of other sites of trunk 01/16/2006 07/01/2007 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 07/12/2021 Other ventral hernia without mention of obstruction or gangrene 03/26/2004 07/01/2007 THROMBOPHLEBITIS NOS(aka DVT) 07/21/2003 PULMON EMBOLISM/INFARCT(aka EMBOLISM) 07/21/2003 08/21/2009 documented as of this encounter (statuses as of 01/07/2022) [facility] History of Past illness Narrative* Problem Noted Date Resolved Date Screening for colon cancer 11/24/201607/12 Overview: Added automatically from request for surgery [id number] Pain in joint, lower leg 11/14/2008 010 MASS IN SUBCUTANEOUS TISSUE 07/21/200808/04 Non-healing surgical wound 03/16/200705/18 Other injury of other sites of trunk 01/16/2006 07/01/2007 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 07/12/2021 Other ventral hernia without mention of obstruction or gangrene 03/26/2004 07/01/2007 THROMBOPHLEBITIS NOS(aka DVT) 07/21/2003 PULMON EMBOLISM/INFARCT(aka EMBOLISM) 07/21/2003 08/21/2009 documented as of this encounter (statuses as of 01/09/2022) [facility] History of Past illness Narrative* Problem Noted Date Resolved Date Screening for colon cancer 11/24/201607/12 Overview: Added automatically from request for surgery [id number] Pain in joint, lower leg 11/14/2008 010 MASS IN SUBCUTANEOUS TISSUE 07/21/200808/04 Non-healing surgical wound 03/16/200705/18 Other injury of other sites of trunk 01/16/2006 07/01/2007 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 07/12/2021 Other ventral hernia without mention of obstruction or gangrene 03/26/2004 07/01/2007 THROMBOPHLEBITIS NOS(aka DVT) 07/21/2003 PULMON EMBOLISM/INFARCT(aka EMBOLISM) 07/21/2003 08/21/2009 documented as of this encounter (statuses as of 01/09/2022) [facility] History of Past illness Narrative* Problem Noted Date Resolved Date Screening for colon cancer 11/24/201607/12 Overview: Added automatically from request for surgery [id number] Pain in joint, lower leg 11/14/2008 010 MASS IN SUBCUTANEOUS TISSUE 07/21/200808/04 Non-healing surgical wound 03/16/200705/18 Other injury of other sites of trunk 01/16/2006 07/01/2007 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 07/12/2021 Other ventral hernia without mention of obstruction or gangrene 03/26/2004 07/01/2007 THROMBOPHLEBITIS NOS(aka DVT) 07/21/2003 PULMON EMBOLISM/INFARCT(aka EMBOLISM) 07/21/2003 08/21/2009 documented as of this encounter (statuses as of 01/14/2022) [facility]2017 History of Past illness Narrative* Problem Noted Date Resolved Date Screening for colon cancer 11/24/201607/12 Overview: Added automatically from request for surgery [id number] Pain in joint, lower leg 11/14/2008 010 MASS IN SUBCUTANEOUS TISSUE 07/21/200808/04 Non-healing surgical wound 03/16/200705/18 Other injury of other sites of trunk 01/16/2006 07/01/2007 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 07/12/2021 Other ventral hernia without mention of obstruction or gangrene 03/26/2004 07/01/2007 THROMBOPHLEBITIS NOS(aka DVT) 07/21/2003 PULMON EMBOLISM/INFARCT(aka EMBOLISM) 07/21/2003 08/21/2009 documented as of this encounter (statuses as of 01/20/2022) [facility]2017 History of Past illness Narrative* Problem Noted Date Resolved Date Screening for colon cancer 11/24/201607/12 Overview: Added automatically from request for surgery [id number] Pain in joint, lower leg 11/14/2008 010 MASS IN SUBCUTANEOUS TISSUE 07/21/200808/04 Non-healing surgical wound 03/16/200705/18 Other injury of other sites of trunk 01/16/2006 07/01/2007 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 07/12/2021 Other ventral hernia without mention of obstruction or gangrene 03/26/2004 07/01/2007 THROMBOPHLEBITIS NOS(aka DVT) 07/21/2003 PULMON EMBOLISM/INFARCT(aka EMBOLISM) 07/21/2003 08/21/2009 documented as of this encounter (statuses as of 01/30/2022) [facility]2017 History of Past illness Narrative* Problem Noted Date Resolved Date Screening for colon cancer 11/24/201607/12 Overview: Added automatically from request for surgery [id number] Pain in joint, lower leg 11/14/2008 010 MASS IN SUBCUTANEOUS TISSUE 07/21/200808/04 Non-healing surgical wound 03/16/200705/18 Other injury of other sites of trunk 01/16/2006 07/01/2007 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 07/12/2021 Other ventral hernia without mention of obstruction or gangrene 03/26/2004 07/01/2007 THROMBOPHLEBITIS NOS(aka DVT) 07/21/2003 PULMON EMBOLISM/INFARCT(aka EMBOLISM) 07/21/2003 08/21/2009 documented as of this encounter (statuses as of 01/30/2022) [facility] History of Past illness Narrative* Problem Noted Date Resolved Date Screening for colon cancer 11/24/201607/12 Overview: Added automatically from request for surgery [id number] Pain in joint, lower leg 11/14/2008 010 MASS IN SUBCUTANEOUS TISSUE 07/21/200808/04 Non-healing surgical wound 03/16/200705/18 Other injury of other sites of trunk 01/16/2006 07/01/2007 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 07/12/2021 Other ventral hernia without mention of obstruction or gangrene 03/26/2004 07/01/2007 THROMBOPHLEBITIS NOS(aka DVT) 07/21/2003 PULMON EMBOLISM/INFARCT(aka EMBOLISM) 07/21/2003 08/21/2009 documented as of this encounter (statuses as of 02/14/2022) [facility] History of Past illness Narrative* Problem Noted Date Resolved Date Screening for colon cancer 11/24/201607/12 Overview: Added automatically from request for surgery [id number] Pain in joint, lower leg 11/14/2008 010 MASS IN SUBCUTANEOUS TISSUE 07/21/200808/04 Non-healing surgical wound 03/16/200705/18 Other injury of other sites of trunk 01/16/2006 07/01/2007 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 07/12/2021 Other ventral hernia without mention of obstruction or gangrene 03/26/2004 07/01/2007 THROMBOPHLEBITIS NOS(aka DVT) 07/21/2003 PULMON EMBOLISM/INFARCT(aka EMBOLISM) 07/21/2003 08/21/2009 documented as of this encounter (statuses as of 02/18/2022) [facility] History of Past illness Narrative* Problem Noted Date Resolved Date Screening for colon cancer 11/24/201607/12 Overview: Added automatically from request for surgery [id number] Pain in joint, lower leg 11/14/2008 010 MASS IN SUBCUTANEOUS TISSUE 07/21/200808/04 Non-healing surgical wound 03/16/200705/18 Other injury of other sites of trunk 01/16/2006 07/01/2007 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 07/12/2021 Other ventral hernia without mention of obstruction or gangrene 03/26/2004 07/01/2007 THROMBOPHLEBITIS NOS(aka DVT) 07/21/2003 PULMON EMBOLISM/INFARCT(aka EMBOLISM) 07/21/2003 08/21/2009 documented as of this encounter (statuses as of 03/04/2022) [facility]2017 History of Past illness Narrative* Problem Noted Date Resolved Date Screening for colon cancer 11/24/201607/12 Overview: Added automatically from request for surgery [id number] Pain in joint, lower leg 11/14/2008 010 MASS IN SUBCUTANEOUS TISSUE 07/21/200808/04 Non-healing surgical wound 03/16/200705/18 Other injury of other sites of trunk 01/16/2006 07/01/2007 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 07/12/2021 Other ventral hernia without mention of obstruction or gangrene 03/26/2004 07/01/2007 THROMBOPHLEBITIS NOS(aka DVT) 07/21/2003 PULMON EMBOLISM/INFARCT(aka EMBOLISM) 07/21/2003 08/21/2009 documented as of this encounter (statuses as of 04/16/2022) [facility] History of Past illness Narrative* Problem Noted Date Resolved Date Screening for colon cancer 11/24/201607/12 Overview: Added automatically from request for surgery [id number] Pain in joint, lower leg 11/14/2008 010 MASS IN SUBCUTANEOUS TISSUE 07/21/200808/04 Non-healing surgical wound 03/16/200705/18 Other injury of other sites of trunk 01/16/2006 07/01/2007 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 07/12/2021 Other ventral hernia without mention of obstruction or gangrene 03/26/2004 07/01/2007 THROMBOPHLEBITIS NOS(aka DVT) 07/21/2003 PULMON EMBOLISM/INFARCT(aka EMBOLISM) 07/21/2003 08/21/2009 documented as of this encounter (statuses as of 04/17/2022) [facility] History of Past illness Narrative* Problem Noted Date Resolved Date Screening for colon cancer 11/24/201607/12 Overview: Added automatically from request for surgery [id number] Pain in joint, lower leg 11/14/2008 010 MASS IN SUBCUTANEOUS TISSUE 07/21/200808/04 Non-healing surgical wound 03/16/200705/18 Other injury of other sites of trunk 01/16/2006 07/01/2007 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 07/12/2021 Other ventral hernia without mention of obstruction or gangrene 03/26/2004 07/01/2007 THROMBOPHLEBITIS NOS(aka DVT) 07/21/2003 PULMON EMBOLISM/INFARCT(aka EMBOLISM) 07/21/2003 08/21/2009 documented as of this encounter (statuses as of 04/29/2022) [facility]2017 History of Past illness Narrative* Problem Noted Date Resolved Date Screening for colon cancer 11/24/201607/12 Overview: Added automatically from request for surgery [id number] Pain in joint, lower leg 11/14/2008 010 MASS IN SUBCUTANEOUS TISSUE 07/21/200808/04 Non-healing surgical wound 03/16/200705/18 Other injury of other sites of trunk 01/16/2006 07/01/2007 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 07/12/2021 Other ventral hernia without mention of obstruction or gangrene 03/26/2004 07/01/2007 THROMBOPHLEBITIS NOS(aka DVT) 07/21/2003 PULMON EMBOLISM/INFARCT(aka EMBOLISM) 07/21/2003 08/21/2009 documented as of this encounter (statuses as of 04/30/2022) [facility] History of Past illness Narrative* Problem Noted Date Resolved Date Screening for colon cancer 11/24/201607/12 Overview: Added automatically from request for surgery [id number] Pain in joint, lower leg 11/14/2008 010 MASS IN SUBCUTANEOUS TISSUE 07/21/200808/04 Non-healing surgical wound 03/16/200705/18 Other injury of other sites of trunk 01/16/2006 07/01/2007 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 07/12/2021 Other ventral hernia without mention of obstruction or gangrene 03/26/2004 07/01/2007 THROMBOPHLEBITIS NOS(aka DVT) 07/21/2003 PULMON EMBOLISM/INFARCT(aka EMBOLISM) 07/21/2003 08/21/2009 documented as of this encounter (statuses as of 05/06/2022) [facility] History of Past illness Narrative* Problem Noted Date Resolved Date Screening for colon cancer 11/24/201607/12 Overview: Added automatically from request for surgery [id number] Pain in joint, lower leg 11/14/2008 010 MASS IN SUBCUTANEOUS TISSUE 07/21/200808/04 Non-healing surgical wound 03/16/200705/18 Other injury of other sites of trunk 01/16/2006 07/01/2007 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 07/12/2021 Other ventral hernia without mention of obstruction or gangrene 03/26/2004 07/01/2007 THROMBOPHLEBITIS NOS(aka DVT) 07/21/2003 PULMON EMBOLISM/INFARCT(aka EMBOLISM) 07/21/2003 08/21/2009 documented as of this encounter (statuses as of 05/15/2022) [facility]2017 History of Past illness Narrative* Problem Noted Date Resolved Date Screening for colon cancer 11/24/201607/12 Overview: Added automatically from request for surgery [id number] Pain in joint, lower leg 11/14/2008 010 MASS IN SUBCUTANEOUS TISSUE 07/21/200808/04 Non-healing surgical wound 03/16/200705/18 Other injury of other sites of trunk 01/16/2006 07/01/2007 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 07/12/2021 Other ventral hernia without mention of obstruction or gangrene 03/26/2004 07/01/2007 THROMBOPHLEBITIS NOS(aka DVT) 07/21/2003 PULMON EMBOLISM/INFARCT(aka EMBOLISM) 07/21/2003 08/21/2009 documented as of this encounter (statuses as of 05/16/2022) [facility]2017 History of Past illness Narrative* Problem Noted Date Resolved Date Screening for colon cancer 11/24/201607/12 Overview: Added automatically from request for surgery [id number] Pain in joint, lower leg 11/14/2008 010 MASS IN SUBCUTANEOUS TISSUE 07/21/200808/04 Non-healing surgical wound 03/16/200705/18 Other injury of other sites of trunk 01/16/2006 07/01/2007 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 07/12/2021 Other ventral hernia without mention of obstruction or gangrene 03/26/2004 07/01/2007 THROMBOPHLEBITIS NOS(aka DVT) 07/21/2003 PULMON EMBOLISM/INFARCT(aka EMBOLISM) 07/21/2003 08/21/2009 documented as of this encounter (statuses as of 05/19/2022) [facility]2017 History of Past illness Narrative* Problem Noted Date Resolved Date Screening for colon cancer 11/24/201607/12 Overview: Added automatically from request for surgery [id number] Pain in joint, lower leg 11/14/2008 010 MASS IN SUBCUTANEOUS TISSUE 07/21/200808/04 Non-healing surgical wound 03/16/200705/18 Other injury of other sites of trunk 01/16/2006 07/01/2007 ASA CLASS III 05/07/2005 07/12/2021 Other ventral hernia without mention of obstruction or gangrene 03/26/2004 07/01/2007 THROMBOPHLEBITIS NOS(aka DVT) 07/21/2003 PULMON EMBOLISM/INFARCT(aka EMBOLISM) 07/21/2003 08/21/2009 documented as of this encounter (statuses as of 05/30/2022) [facility] History of Past illness Narrative* Problem Noted Date Resolved Date Screening for colon cancer 11/24/201607/12 Overview: Added automatically from request for surgery [id number] Pain in joint, lower leg 11/14/2008 010 MASS IN SUBCUTANEOUS TISSUE 07/21/200808/04 Non-healing surgical wound 03/16/200705/18 Other injury of other sites of trunk 01/16/2006 07/01/2007 ASA CLASS III 05/07/2005 07/12/2021 Other ventral hernia without mention of obstruction or gangrene 03/26/2004 07/01/2007 THROMBOPHLEBITIS NOS(aka DVT) 07/21/2003 PULMON EMBOLISM/INFARCT(aka EMBOLISM) 07/21/2003 08/21/2009 documented as of this encounter (statuses as of 06/04/2022) [facility] History of Past illness Narrative* Problem Noted Date Resolved Date Screening for colon cancer 11/24/201607/12 Overview: Added automatically from request for surgery [id number] Pain in joint, lower leg 11/14/2008 010 MASS IN SUBCUTANEOUS TISSUE 07/21/200808/04 Non-healing surgical wound 03/16/200705/18 Other injury of other sites of trunk 01/16/2006 07/01/2007 ASA CLASS III 05/07/2005 07/12/2021 Other ventral hernia without mention of obstruction or gangrene 03/26/2004 07/01/2007 THROMBOPHLEBITIS NOS(aka DVT) 07/21/2003 PULMON EMBOLISM/INFARCT(aka EMBOLISM) 07/21/2003 08/21/2009 documented as of this encounter (statuses as of 06/26/2022) [facility] History of Past illness Narrative* Problem Noted Date Resolved Date Screening for colon cancer 11/24/201607/12 Overview: Added automatically from request for surgery [id number] Pain in joint, lower leg 11/14/2008 010 MASS IN SUBCUTANEOUS TISSUE 07/21/200808/04 Non-healing surgical wound 03/16/200705/18 Other injury of other sites of trunk 01/16/2006 07/01/2007 ASA CLASS III 05/07/2005 07/12/2021 Other ventral hernia without mention of obstruction or gangrene 03/26/2004 07/01/2007 THROMBOPHLEBITIS NOS(aka DVT) 07/21/2003 PULMON EMBOLISM/INFARCT(aka EMBOLISM) 07/21/2003 08/21/2009 documented as of this encounter (statuses as of 06/27/2022) [facility] History of Past illness Narrative* Problem Noted Date Resolved Date Screening for colon cancer 11/24/201607/12 Overview: Added automatically from request for surgery [id number] Pain in joint, lower leg 11/14/2008 010 MASS IN SUBCUTANEOUS TISSUE 07/21/200808/04 Non-healing surgical wound 03/16/200705/18 Other injury of other sites of trunk 01/16/2006 07/01/2007 ASA CLASS III 05/07/2005 07/12/2021 Other ventral hernia without mention of obstruction or gangrene 03/26/2004 07/01/2007 THROMBOPHLEBITIS NOS(aka DVT) 07/21/2003 PULMON EMBOLISM/INFARCT(aka EMBOLISM) 07/21/2003 08/21/2009 documented as of this encounter (statuses as of 06/30/2022) [facility] History of Past illness Narrative* Problem Noted Date Resolved Date Screening for colon cancer 11/24/201607/12 Overview: Added automatically from request for surgery [id number] Pain in joint, lower leg 11/14/2008 010 MASS IN SUBCUTANEOUS TISSUE 07/21/200808/04 Non-healing surgical wound 03/16/200705/18 Other injury of other sites of trunk 01/16/2006 07/01/2007 ASA CLASS III 05/07/2005 07/12/2021 Other ventral hernia without mention of obstruction or gangrene 03/26/2004 07/01/2007 THROMBOPHLEBITIS NOS(aka DVT) 07/21/2003 PULMON EMBOLISM/INFARCT(aka EMBOLISM) 07/21/2003 08/21/2009 documented as of this encounter (statuses as of 07/01/2022) [facility] History of Past illness Narrative* Problem Noted Date Resolved Date Screening for colon cancer 11/24/2016 04/08 /2022 Overview: Added automatically from request for surgery [id number] Pain in joint, lower leg 11/14/2008 010 MASS IN SUBCUTANEOUS TISSUE 07/21/200808/04 Non-healing surgical wound 03/16/200705/18 Other injury of other sites of trunk 01/16/2006 07/01/2007 ASA CLASS III 05/07/2005 07/12/2021 Other ventral hernia without mention of obstruction or gangrene 03/26/2004 07/01/2007 THROMBOPHLEBITIS NOS(aka DVT) 07/21/2003 PULMON EMBOLISM/INFARCT(aka EMBOLISM) 07/21/2003 08/21/2009 documented as of this encounter (statuses as of 07/03/2022) [facility] History of Past illness Narrative* Problem Noted Date Resolved Date Screening for colon cancer 11/24/201607/12 Overview: Added automatically from request for surgery [id number] Pain in joint, lower leg 11/14/2008 010 MASS IN SUBCUTANEOUS TISSUE 07/21/200808/04 Non-healing surgical wound 03/16/200705/18 Other injury of other sites of trunk 01/16/2006 07/01/2007 ASA CLASS III 05/07/2005 07/12/2021 Other ventral hernia without mention of obstruction or gangrene 03/26/2004 07/01/2007 THROMBOPHLEBITIS NOS(aka DVT) 07/21/2003 PULMON EMBOLISM/INFARCT(aka EMBOLISM) 07/21/2003 08/21/2009 documented as of this encounter (statuses as of 07/14/2022) [facility] History of Past illness Narrative* Problem Noted Date Resolved Date Screening for colon cancer 11/24/201607/12 Overview: Added automatically from request for surgery [id number] Pain in joint, lower leg 11/14/2008 010 MASS IN SUBCUTANEOUS TISSUE 07/21/200808/04 Non-healing surgical wound 03/16/200705/18 Other injury of other sites of trunk 01/16/2006 07/01/2007 ASA CLASS III 05/07/2005 07/12/2021 Other ventral hernia without mention of obstruction or gangrene 03/26/2004 07/01/2007 THROMBOPHLEBITIS NOS(aka DVT) 07/21/2003 PULMON EMBOLISM/INFARCT(aka EMBOLISM) 07/21/2003 08/21/2009 documented as of this encounter (statuses as of 07/31/2022) [facility] History of Past illness Narrative* Problem Noted Date Resolved Date Screening for colon cancer 11/24/201607/12 Overview: Added automatically from request for surgery [id number] Pain in joint, lower leg 11/14/2008 010 MASS IN SUBCUTANEOUS TISSUE 07/21/200808/04 Non-healing surgical wound 03/16/200705/18 Other injury of other sites of trunk 01/16/2006 07/01/2007 ASA CLASS III 05/07/2005 07/12/2021 Other ventral hernia without mention of obstruction or gangrene 03/26/2004 07/01/2007 THROMBOPHLEBITIS NOS(aka DVT) 07/21/2003 PULMON EMBOLISM/INFARCT(aka EMBOLISM) 07/21/2003 08/21/2009 documented as of this encounter (statuses as of 08/05/2022) [facility] History of Past illness Narrative* Problem Noted Date Resolved Date Screening for colon cancer 11/24/201607/12 Overview: Added automatically from request for surgery [id number] Pain in joint, lower leg 11/14/2008 010 MASS IN SUBCUTANEOUS TISSUE 07/21/200808/04 Non-healing surgical wound 03/16/200705/18 Other injury of other sites of trunk 01/16/2006 07/01/2007 ASA CLASS III 05/07/2005 07/12/2021 Other ventral hernia without mention of obstruction or gangrene 03/26/2004 07/01/2007 THROMBOPHLEBITIS NOS(aka DVT) 07/21/2003 PULMON EMBOLISM/INFARCT(aka EMBOLISM) 07/21/2003 08/21/2009 documented as of this encounter (statuses as of 08/14/2022) [facility] History of Past illness Narrative* Problem Noted Date Resolved Date Screening for colon cancer 11/24/201607/12 Overview: Added automatically from request for surgery [id number] Pain in joint, lower leg 11/14/2008 010 MASS IN SUBCUTANEOUS TISSUE 07/21/200808/04 Non-healing surgical wound 03/16/200705/18 Other injury of other sites of trunk 01/16/2006 07/01/2007 ASA CLASS III 05/07/2005 07/12/2021 Other ventral hernia without mention of obstruction or gangrene 03/26/2004 07/01/2007 THROMBOPHLEBITIS NOS(aka DVT) 07/21/2003 PULMON EMBOLISM/INFARCT(aka EMBOLISM) 07/21/2003 08/21/2009 documented as of this encounter (statuses as of 10/02/2022) [facility] History of Past illness Narrative* Problem Noted Date Resolved Date Screening for colon cancer 11/24/201607/12 Overview: Added automatically from request for surgery [id number] Pain in joint, lower leg 11/14/2008 010 MASS IN SUBCUTANEOUS TISSUE 07/21/200808/04 Non-healing surgical wound 03/16/200705/18 Other injury of other sites of trunk 01/16/2006 07/01/2007 ASA CLASS III 05/07/2005 07/12/2021 Other ventral hernia without mention of obstruction or gangrene 03/26/2004 07/01/2007 THROMBOPHLEBITIS NOS(aka DVT) 07/21/2003 PULMON EMBOLISM/INFARCT(aka EMBOLISM) 07/21/2003 08/21/2009 documented as of this encounter (statuses as of 10/09/2022) [facility] History of Past illness Narrative* Problem Noted Date Diagnosed Date Resolved Date Screening for colon cancer 11/24/2016 0 07/12/2021 Overview: Added automatically from request for surgery [id number] Pain in joint, lower leg 11/14/2008 MASS IN SUBCUTANEOUS TISSUE 07/21/2008 08/18/2018 Non-healing surgical wound 03/16/2007 0 05/18/2009 Other injury of other sites of trunk 01/16/2006 07/01/2007 ASA CLASS III 05/07/2005 07/12/2021 Other ventral hernia without mention of obstruction or gangrene 03/26/2004 07/01/2007 THROMBOPHLEBITIS NOS(aka DVT) 07/21/2003 08/21/2009 PULMON EMBOLISM/INFARCT(aka EMBOLISM) 07/21/2003 08/21/2009 documented as of this encounter (statuses as of 10/16/2022) [facility] History of Past illness Narrative* Problem Noted Date Diagnosed Date Resolved Date Screening for colon cancer 11/24/2016 0 07/12/2021 Overview: Added automatically from request for surgery [id number] Pain in joint, lower leg 11/14/2008 MASS IN SUBCUTANEOUS TISSUE 07/21/2008 08/18/2018 Non-healing surgical wound 03/16/2007 0 05/18/2009 Other injury of other sites of trunk 01/16/2006 07/01/2007 ASA CLASS III 05/07/2005 07/12/2021 Other ventral hernia without mention of obstruction or gangrene 03/26/2004 07/01/2007 THROMBOPHLEBITIS NOS(aka DVT) 07/21/2003 08/21/2009 PULMON EMBOLISM/INFARCT(aka EMBOLISM) 07/21/2003 08/21/2009 documented as of this encounter (statuses as of 12/05/2022) [facility] History of Past illness Narrative* Problem Noted Date Diagnosed Date Resolved Date Screening for colon cancer 11/24/2016 0 07/12/2021 Overview: Added automatically from request for surgery [id number] Pain in joint, lower leg 11/14/2008 MASS IN SUBCUTANEOUS TISSUE 07/21/2008 08/18/2018 Non-healing surgical wound 03/16/2007 0 05/18/2009 Other injury of other sites of trunk 01/16/2006 07/01/2007 ASA CLASS III 05/07/2005 07/12/2021 Other ventral hernia without mention of obstruction or gangrene 03/26/2004 07/01/2007 THROMBOPHLEBITIS NOS(aka DVT) 07/21/2003 08/21/2009 PULMON EMBOLISM/INFARCT(aka EMBOLISM) 07/21/2003 08/21/2009 documented as of this encounter (statuses as of 12/22/2022) [facility] History of Past illness Narrative* Problem Noted Date Diagnosed Date Resolved Date Screening for colon cancer 11/24/2016 0 07/12/2021 Overview: Added automatically from request for surgery [id number] Pain in joint, lower leg 11/14/2008 MASS IN SUBCUTANEOUS TISSUE 07/21/2008 08/18/2018 Non-healing surgical wound 03/16/2007 0 05/18/2009 Other injury of other sites of trunk 01/16/2006 07/01/2007 ASA CLASS III 05/07/2005 07/12/2021 Other ventral hernia without mention of obstruction or gangrene 03/26/2004 07/01/2007 THROMBOPHLEBITIS NOS(aka DVT) 07/21/2003 08/21/2009 PULMON EMBOLISM/INFARCT(aka EMBOLISM) 07/21/2003 08/21/2009 documented as of this encounter (statuses as of 12/24/2022) [facility] History of Past illness Narrative* Problem Noted Date Diagnosed Date Resolved Date Screening for colon cancer 11/24/2016 0 07/12/2021 Overview: Added automatically from request for surgery [id number] Pain in joint, lower leg 11/14/2008 MASS IN SUBCUTANEOUS TISSUE 07/21/2008 08/18/2018 Non-healing surgical wound 03/16/2007 0 05/18/2009 Other injury of other sites of trunk 01/16/2006 07/01/2007 ASA CLASS III 05/07/2005 07/12/2021 Other ventral hernia without mention of obstruction or gangrene 03/26/2004 07/01/2007 THROMBOPHLEBITIS NOS(aka DVT) 07/21/2003 08/21/2009 PULMON EMBOLISM/INFARCT(aka EMBOLISM) 07/21/2003 08/21/2009 documented as of this encounter (statuses as of 01/15/2023) [facility] History of Past illness Narrative* Problem Noted Date Diagnosed Date Resolved Date Screening for colon cancer 11/24/2016 0 07/12/2021 Overview: Added automatically from request for surgery [id number] Pain in joint, lower leg 11/14/2008 MASS IN SUBCUTANEOUS TISSUE 07/21/2008 08/18/2018 Non-healing surgical wound 03/16/2007 0 05/18/2009 Other injury of other sites of trunk 01/16/2006 07/01/2007 ASA CLASS III 05/07/2005 07/12/2021 Other ventral hernia without mention of obstruction or gangrene 03/26/2004 07/01/2007 THROMBOPHLEBITIS NOS(aka DVT) 07/21/2003 08/21/2009 PULMON EMBOLISM/INFARCT(aka EMBOLISM) 07/21/2003 08/21/2009 documented as of this encounter (statuses as of 01/15/2023) [facility]2017 History of Past illness Narrative* Problem Noted Date Diagnosed Date Resolved Date Screening for colon cancer 11/24/2016 0 07/12/2021 Overview: Added automatically from request for surgery [id number] Pain in joint, lower leg 11/14/2008 MASS IN SUBCUTANEOUS TISSUE 07/21/2008 08/18/2018 Non-healing surgical wound 03/16/2007 0 05/18/2009 Other injury of other sites of trunk 01/16/2006 07/01/2007 ASA CLASS III 05/07/2005 07/12/2021 Other ventral hernia without mention of obstruction or gangrene 03/26/2004 07/01/2007 THROMBOPHLEBITIS NOS(aka DVT) 07/21/2003 08/21/2009 PULMON EMBOLISM/INFARCT(aka EMBOLISM) 07/21/2003 08/21/2009 documented as of this encounter (statuses as of 02/08/2023) [facility] History of Past illness Narrative* Problem Noted Date Diagnosed Date Resolved Date Screening for colon cancer 11/24/2016 0 07/12/2021 Overview: Added automatically from request for surgery [id number] Pain in joint, lower leg 11/14/2008 MASS IN SUBCUTANEOUS TISSUE 07/21/2008 08/18/2018 Non-healing surgical wound 03/16/2007 0 05/18/2009 Other injury of other sites of trunk 01/16/2006 07/01/2007 ASA CLASS III 05/07/2005 07/12/2021 Other ventral hernia without mention of obstruction or gangrene 03/26/2004 07/01/2007 THROMBOPHLEBITIS NOS(aka DVT) 07/21/2003 08/21/2009 PULMON EMBOLISM/INFARCT(aka EMBOLISM) 07/21/2003 08/21/2009 documented as of this encounter (statuses as of 02/08/2023) [facility] History of Past illness Narrative* Problem Noted Date Diagnosed Date Resolved Date Screening for colon cancer 11/24/2016 0 07/12/2021 Overview: Added automatically from request for surgery [id number] Pain in joint, lower leg 11/14/2008 MASS IN SUBCUTANEOUS TISSUE 07/21/2008 08/18/2018 Non-healing surgical wound 03/16/2007 0 05/18/2009 Other injury of other sites of trunk 01/16/2006 07/01/2007 ASA CLASS III 05/07/2005 07/12/2021 Other ventral hernia without mention of obstruction or gangrene 03/26/2004 07/01/2007 THROMBOPHLEBITIS NOS(aka DVT) 07/21/2003 08/21/2009 PULMON EMBOLISM/INFARCT(aka EMBOLISM) 07/21/2003 08/21/2009 documented as of this encounter (statuses as of 02/08/2023) [facility] History of Past illness Narrative* Problem Noted Date Diagnosed Date Resolved Date Screening for colon cancer 11/24/2016 0 07/12/2021 Overview: Added automatically from request for surgery [id number] Pain in joint, lower leg 11/14/2008 MASS IN SUBCUTANEOUS TISSUE 07/21/2008 08/18/2018 Non-healing surgical wound 03/16/2007 0 05/18/2009 Other injury of other sites of trunk 01/16/2006 07/01/2007 ASA CLASS III 05/07/2005 07/12/2021 Other ventral hernia without mention of obstruction or gangrene 03/26/2004 07/01/2007 THROMBOPHLEBITIS NOS(aka DVT) 07/21/2003 08/21/2009 PULMON EMBOLISM/INFARCT(aka EMBOLISM) 07/21/2003 08/21/2009 documented as of this encounter (statuses as of 02/08/2023) [facility] History of Past illness Narrative* Problem Noted Date Diagnosed Date Resolved Date Screening for colon cancer 11/24/2016 0 07/12/2021 Overview: Added automatically from request for surgery [id number] Pain in joint, lower leg 11/14/2008 MASS IN SUBCUTANEOUS TISSUE 07/21/2008 08/18/2018 Non-healing surgical wound 03/16/2007 0 05/18/2009 Other injury of other sites of trunk 01/16/2006 07/01/2007 ASA CLASS III 05/07/2005 07/12/2021 Other ventral hernia without mention of obstruction or gangrene 03/26/2004 07/01/2007 THROMBOPHLEBITIS NOS(aka DVT) 07/21/2003 08/21/2009 PULMON EMBOLISM/INFARCT(aka EMBOLISM) 07/21/2003 08/21/2009 documented as of this encounter (statuses as of 02/16/2023) [facility] History of Past illness Narrative* Problem Noted Date Diagnosed Date Resolved Date Screening for colon cancer 11/24/2016 0 07/12/2021 Overview: Added automatically from request for surgery [id number] Pain in joint, lower leg 11/14/2008 MASS IN SUBCUTANEOUS TISSUE 07/21/2008 08/18/2018 Non-healing surgical wound 03/16/2007 0 05/18/2009 Other injury of other sites of trunk 01/16/2006 07/01/2007 ASA CLASS III 05/07/2005 07/12/2021 Other ventral hernia without mention of obstruction or gangrene 03/26/2004 07/01/2007 THROMBOPHLEBITIS NOS(aka DVT) 07/21/2003 08/21/2009 PULMON EMBOLISM/INFARCT(aka EMBOLISM) 07/21/2003 08/21/2009 documented as of this encounter (statuses as of 03/03/2023) [facility] History of Past illness Narrative* Problem Noted Date Diagnosed Date Resolved Date Screening for colon cancer 11/24/2016 0 07/12/2021 Overview: Added automatically from request for surgery [id number] Pain in joint, lower leg 11/14/2008 MASS IN SUBCUTANEOUS TISSUE 07/21/2008 08/18/2018 Non-healing surgical wound 03/16/2007 0 05/18/2009 Other injury of other sites of trunk 01/16/2006 07/01/2007 ASA CLASS III 05/07/2005 07/12/2021 Other ventral hernia without mention of obstruction or gangrene 03/26/2004 07/01/2007 THROMBOPHLEBITIS NOS(aka DVT) 07/21/2003 08/21/2009 PULMON EMBOLISM/INFARCT(aka EMBOLISM) 07/21/2003 08/21/2009 documented as of this encounter (statuses as of 05/18/2023) [facility] History of Past illness Narrative* Problem Noted Date Diagnosed Date Resolved Date Screening for colon cancer 11/24/2016 0 07/12/2021 Overview: Added automatically from request for surgery [id number] Pain in joint, lower leg 11/14/2008 MASS IN SUBCUTANEOUS TISSUE 07/21/2008 08/18/2018 Non-healing surgical wound 03/16/2007 0 05/18/2009 Other injury of other sites of trunk 01/16/2006 07/01/2007 ASA CLASS III 05/07/2005 07/12/2021 Other ventral hernia without mention of obstruction or gangrene 03/26/2004 07/01/2007 THROMBOPHLEBITIS NOS(aka DVT) 07/21/2003 08/21/2009 PULMON EMBOLISM/INFARCT(aka EMBOLISM) 07/21/2003 08/21/2009 documented as of this encounter (statuses as of 05/20/2023) [facility] History of Past illness Narrative* Problem Noted Date Diagnosed Date Resolved Date Screening for colon cancer 11/24/2016 0 07/12/2021 Overview: Added automatically from request for surgery [id number] Pain in joint, lower leg 11/14/2008 MASS IN SUBCUTANEOUS TISSUE 07/21/2008 08/18/2018 Non-healing surgical wound 03/16/2007 0 05/18/2009 Other injury of other sites of trunk 01/16/2006 07/01/2007 ASA CLASS III 05/07/2005 07/12/2021 Other ventral hernia without mention of obstruction or gangrene 03/26/2004 07/01/2007 THROMBOPHLEBITIS NOS(aka DVT) 07/21/2003 08/21/2009 PULMON EMBOLISM/INFARCT(aka EMBOLISM) 07/21/2003 08/21/2009 documented as of this encounter (statuses as of 06/02/2023) [facility] History of Past illness Narrative* Problem Noted Date Diagnosed Date Resolved Date Screening for colon cancer 11/24/2016 0 07/12/2021 Overview: Added automatically from request for surgery [id number] Pain in joint, lower leg 11/14/2008 MASS IN SUBCUTANEOUS TISSUE 07/21/2008 08/18/2018 Non-healing surgical wound 03/16/2007 0 05/18/2009 Other injury of other sites of trunk 01/16/2006 07/01/2007 ASA CLASS III 05/07/2005 07/12/2021 Other ventral hernia without mention of obstruction or gangrene 03/26/2004 07/01/2007 THROMBOPHLEBITIS NOS(aka DVT) 07/21/2003 08/21/2009 PULMON EMBOLISM/INFARCT(aka EMBOLISM) 07/21/2003 08/21/2009 documented as of this encounter (statuses as of 06/04/2023) [facility] History of Past illness Narrative* Problem Noted Date Diagnosed Date Resolved Date Screening for colon cancer 11/24/2016 0 07/12/2021 Overview: Added automatically from request for surgery [id number] Pain in joint, lower leg 11/14/2008 MASS IN SUBCUTANEOUS TISSUE 07/21/2008 08/18/2018 Non-healing surgical wound 03/16/2007 0 05/18/2009 Other injury of other sites of trunk 01/16/2006 07/01/2007 ASA CLASS III 05/07/2005 07/12/2021 Other ventral hernia without mention of obstruction or gangrene 03/26/2004 07/01/2007 THROMBOPHLEBITIS NOS(aka DVT) 07/21/2003 08/21/2009 PULMON EMBOLISM/INFARCT(aka EMBOLISM) 07/21/2003 08/21/2009 documented as of this encounter (statuses as of 06/17/2023) [facility] History of Past illness Narrative* Problem Noted Date Diagnosed Date Resolved Date Screening for colon cancer 11/24/2016 0 07/12/2021 Overview: Added automatically from request for surgery [id number] Pain in joint, lower leg 11/14/2008 MASS IN SUBCUTANEOUS TISSUE 07/21/2008 08/18/2018 Non-healing surgical wound 03/16/2007 0 05/18/2009 Other injury of other sites of trunk 01/16/2006 07/01/2007 ASA CLASS III 05/07/2005 07/12/2021 Other ventral hernia without mention of obstruction or gangrene 03/26/2004 07/01/2007 THROMBOPHLEBITIS NOS(aka DVT) 07/21/2003 08/21/2009 PULMON EMBOLISM/INFARCT(aka EMBOLISM) 07/21/2003 08/21/2009 documented as of this encounter (statuses as of 06/22/2023) [facility] History of Past illness Narrative* Problem Noted Date Diagnosed Date Resolved Date Screening for colon cancer 11/24/2016 0 07/12/2021 Overview: Added automatically from request for surgery [id number] Pain in joint, lower leg 11/14/2008 MASS IN SUBCUTANEOUS TISSUE 07/21/2008 08/18/2018 Non-healing surgical wound 03/16/2007 0 05/18/2009 Other injury of other sites of trunk 01/16/2006 07/01/2007 ASA CLASS III 05/07/2005 07/12/2021 Other ventral hernia without mention of obstruction or gangrene 03/26/2004 07/01/2007 THROMBOPHLEBITIS NOS(aka DVT) 07/21/2003 08/21/2009 PULMON EMBOLISM/INFARCT(aka EMBOLISM) 07/21/2003 08/21/2009 documented as of this encounter (statuses as of 06/29/2023) [facility] History of Past illness Narrative* Problem Noted Date Diagnosed Date Resolved Date Screening for colon cancer 11/24/2016 0 07/12/2021 Overview: Added automatically from request for surgery [id number] Pain in joint, lower leg 11/14/2008 MASS IN SUBCUTANEOUS TISSUE 07/21/2008 08/18/2018 Non-healing surgical wound 03/16/2007 0 05/18/2009 Other injury of other sites of trunk 01/16/2006 07/01/2007 ASA CLASS III 05/07/2005 07/12/2021 Other ventral hernia without mention of obstruction or gangrene 03/26/2004 07/01/2007 THROMBOPHLEBITIS NOS(aka DVT) 07/21/2003 08/21/2009 PULMON EMBOLISM/INFARCT(aka EMBOLISM) 07/21/2003 08/21/2009 documented as of this encounter (statuses as of 07/15/2023) [facility] History of Past illness Narrative* Problem Noted Date Diagnosed Date Resolved Date Screening for colon cancer 11/24/2016 0 07/12/2021 Overview: Added automatically from request for surgery [id number] Pain in joint, lower leg 11/14/2008 MASS IN SUBCUTANEOUS TISSUE 07/21/2008 08/18/2018 Non-healing surgical wound 03/16/2007 0 05/18/2009 Other injury of other sites of trunk 01/16/2006 07/01/2007 ASA CLASS III 05/07/2005 07/12/2021 Other ventral hernia without mention of obstruction or gangrene 03/26/2004 07/01/2007 THROMBOPHLEBITIS NOS(aka DVT) 07/21/2003 08/21/2009 PULMON EMBOLISM/INFARCT(aka EMBOLISM) 07/21/2003 08/21/2009 documented as of this encounter (statuses as of 07/23/2023) [facility] note Author Mono Lemon [facility] Note Date/Time September 06, 2024 9:49a m [facility] Medical Records Department [address] [place] [address] Anesthesia Postop Eval I 09/06/24 0948 MR#: [id number] Acct: [id number] Name: MARI LOPEZ Rep #:[id number] : 1940 84 From: Mono PENG PCP: MARILEE AguillonC Status:REG S DC Y Race: C Location: [place] [address] Anesthesia: Postop Eval I Current Vital Signs Temperature: 98 F Pulse Rate: 74 Blood Pressure: 109/55 Respiratory Rate: 18 Pulse Ox: 96 Oxygen Delivery Method: Room Air Assessment Airway patent: Yes Spontaneous unlabored respirations: Yes Mental status: Awake and Calm nausea: No Vomiting: No Anesthesia Complication: No Fluid Hydration Crystalloid volume administer (ml): 400 Total IV fluid infused: 400 Progress Note Anesthesia document: Postop Eval 1 completed: Yes 09/06/24 0949 <Electronically signed by Mono Lemon CRNA> Date _ Mono Lemon CRNA Cosigner Signature: Date CC: ~ Signed [facility] Work Phone: Evaluation note* Diagnosis BENIGN HYPERTENSION(aka HTN)- Primary Essential [...] Chest pain, unspecified [facility] Diagnosis Left upper quadrant abdominal pain documented in this encounter [facility] note* Diagnosis Left upper quadrant [facility] Diagnosis Insomnia, unspecified type [facility]* Diagnosis Rib pain on left side- Primary Chest pain, unspecified [facility]* Diagnosis Onset Date Resolution Status Dyspnea on minimal exertion acute Essential (primary) hypertension [facility]* Diagnosis Lumbar spondylosis- Primary Lumbosacral spondylosis without myelopathy Other chronic pain Thoracic spine pain Pain in thoracic spine Myofascial pain Mylagia and myositis, unspecified documented in this encounter [facility] note* Diagnosis Lumbar spondylosis Lumbosacral spondylosis without myelopathy Thoracic spine pain Pain in thoracic spine [facility]* Diagnosis Rib pain Chest pain, unspecified [facility]* Diagnosis Chronic midline low back pain with sciatica, sciatica laterality unspecified- Primary [facility] Diagnosis Insomnia, unspecified type [facility]* Diagnosis Chronic midline low back pain with sciatica, sciatica laterality unspecified- Primary [facility] Diagnosis Lymphedema- Primary Other lymphedema [facility] Diagnosis Lymphedema- Primary Other lymphedema Lumbar spondylosis Lumbosacral spondylosis without myelopathy Thoracic spine pain Pain in thoracic spine Myofascial pain Mylagia and myositis, unspecified [facility]* Diagnosis Bilateral leg edema Edema [facility] Diagnosis Lymphedema- Primary Other lymphedema [facility] Diagnosis Lumbar spondylosis- Primary Lumbosacral spondylosis without myelopathy [facility] Diagnosis Lymphedema- Primary Other lymphedema Lumbar spondylosis Lumbosacral spondylosis without myelopathy Lumbar spondylosis Lumbosacral spondylosis without myelopathy documented in this encounter [facility] note* Diagnosis Lymphedema- Primary Other lymphedema Lumbar spondylosis Lumbosacral spondylosis without myelopathy Lumbar spondylosis Lumbosacral spondylosis without myelopathy [facility]* Diagnosis Onset Date Resolution Status Chronic acquired lymphedema chronic [facility] Work Phone: Evaluation note* Diagnosis Lumbar spondylosis Lumbosacral spondylosis without myelopathy Lumbar spondylosis Lumbosacral spondylosis without myelopathy [facility] Diagnosis Lumbar spondylosis- Primary Lumbosacral spondylosis without myelopathy Myofascial pain Mylagia and myositis, unspecified Other chronic pain Lumbar spondylosis Lumbosacral spondylosis without myelopathy [facility] Diagnosis Onset Date Resolution Status Chronic acquired lymphedema chronic Abdominal ascites acute Swelling of left lower extremity acute Chronic acquired lymphedema chronic [facility] Work Phone: Evaluation note* Diagnosis Lymphedema- Primary Other lymphedema Lumbar spondylosis Lumbosacral spondylosis without myelopathy [facility] Diagnosis Leg swelling- Primary Swelling of limb Shortness of breath Shortness of breath Abdominal distension Flatulence, eructation, and gas pain Function kidney decreased Unspecified disorder of kidney and ureter Lumbar spondylosis Lumbosacral spondylosis without myelopathy [facility] Abdominal distension Flatulence, eructation, and gas pain Lumbar spondylosis Lumbosacral spondylosis without myelopathy [facility] Diagnosis Lymphedema- Primary Other lymphedema Lumbar spondylosis Lumbosacral spondylosis without myelopathy [facility] Bilateral leg edema Edema Lumbar spondylosis Lumbosacral spondylosis without myelopathy [facility] Insomnia, unspecified type [facility] Diagnosis Lumbar spondylosis- Primary Lumbosacral spondylosis without myelopathy Myofascial pain Mylagia and myositis, unspecified [facility] Diagnosis Onset Date Resolution Status Chronic acquired lymphedema chronic Swelling of left lower extremity acute Chronic acquired lymphedema chronic Acute diastolic (congestive) heart failure acute Dyspnea on minimal exertion acute Essential (primary) hypertension chronic [facility] Work Phone: Evaluation note* Diagnosis Lumbar spondylosis- Primary Lumbosacral spondylosis without myelopathy Lumbar spondylosis Lumbosacral spondylosis without myelopathy [facility] Female stress incontinence- Primary Lumbar spondylosis Lumbosacral spondylosis without myelopathy [facility] Diagnosis Onset Date Resolution Status Chronic acquired lymphedema chronic Swelling of left lower extremity acute Chronic acquired lymphedema chronic Dyspnea on minimal exertion acute Essential (primary) hypertension chronic [facility] Work Phone: Evaluation note* Diagnosis Onset Date Resolution Status Chronic acquired lymphedema chronic Swelling of left lower extremity acute Chronic acquired lymphedema chronic Dyspnea on minimal exertion acute Essential (primary) hypertension chronic (HFpEF) heart failure with preserved ejection fraction chronic Essential (primary) hypertension [facility] Work Phone: Evaluation note* Diagnosis Insomnia, unspecified type [facility]* Diagnosis C. difficile colitis- Primary Intestinal infection due to clostridium difficile Rectal bleeding Hemorrhage of rectum and anus Change in stool Nonspecific abnormal finding in stool contents Fall, initial encounter [facility] Diagnosis Onset Date Resolution Status (HFpEF) heart failure with preserved ejection fraction chronic Essential (primary) hypertension [facility] Work Phone: Evaluation note* Diagnosis Lumbar spondylosis- Primary Lumbosacral spondylosis without myelopathy Anxiety due to invasive procedure [facility] Dysuria- Primary Female stress incontinence Leg swelling Swelling of limb Chronic knee pain, unspecified laterality Chronic right-sided low back pain without sciatica Change in stool Nonspecific abnormal finding in stool contents [facility] Diagnosis Female stress incontinence- Primary Urge urinary incontinence Urge incontinence [facility] Diagnosis Lumbar spondylosis- Primary Lumbosacral spondylosis without myelopathy [facility]* Diagnosis Insomnia, unspecified type [facility] Diagnosis Chronic bilateral low back pain without sciatica- Primary Lumbar spondylosis Lumbosacral spondylosis without myelopathy [facility]* Diagnosis Onset Date Resolution Status Chest pain acute (HFpEF) heart failure with preserved ejection fraction chronic Essential (primary) hypertension [facility] Work Phone: Evaluation note* Diagnosis Chronic bilateral low back pain without sciatica- Primary Lumbar spondylosis Lumbosacral spondylosis without myelopathy [facility]* Diagnosis Lumbar spondylosis- Primary Lumbosacral spondylosis without myelopathy Chronic bilateral low back pain without sciatica [facility]* Diagnosis Insomnia, unspecified type- Primary [facility]* Diagnosis Lumbar spondylosis- Primary Lumbosacral spondylosis without myelopathy Myofascial pain Mylagia and myositis, unspecified [facility]* Diagnosis Onset Date Resolution Status Chest pain acute (HFpEF) heart failure with preserved ejection fraction chronic Essential (primary) hypertension chronic (HFpEF) heart failure with preserved ejection fraction chronic [facility] Work Phone: Evaluation note* Diagnosis Rib pain Chest pain, unspecified [facility]* Diagnosis Female stress incontinence- Primary Chronic right-sided low back pain without sciatica BENIGN HYPERTENSION(aka HTN) Essential hypertension, benign Hypothyroidism, acquired Unspecified hypothyroidism Insomnia, unspecified type Leg swelling Swelling of limb Decreased glomerular filtration rate (GFR) Chronic knee pain, unspecified laterality Acute pain of left shoulder [facility]* Diagnosis Decreased glomerular filtration rate (GFR)- Primary [facility]* Diagnosis Primary osteoarthritis of both shoulders- Primary Lumbar spondylosis Lumbosacral spondylosis without myelopathy Myofascial pain Mylagia and myositis, unspecified Rotator cuff impingement syndrome, unspecified laterality [facility]* Diagnosis Lumbar spondylosis Lumbosacral spondylosis without myelopathy Spinal stenosis of lumbar region without neurogenic claudication Spinal stenosis, lumbar region, without neurogenic claudication Thoracic spine pain Pain in thoracic spine Chronic midline thoracic back pain [facility] Diagnosis Closed fracture of base of fifth metatarsal bone of right foot at metaphyseal-diaphyseal junction, initial encounter [facility] Diagnosis Fall, initial encounter [facility] Diagnosis Primary osteoarthritis of both shoulders Rotator cuff impingement syndrome, unspecified laterality documented [facility] Diagnosis Primary osteoarthritis of both shoulders- Primary [facility] Diagnosis Primary osteoarthritis of both shoulders- Primary [facility]* Diagnosis Primary osteoarthritis of both shoulders- Primary [facility]* Diagnosis Primary osteoarthritis of both shoulders- Primary [facility]* Diagnosis 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 [facility]* Diagnosis Onset Date Resolution Status Constipation acute Acute kidney injury superimp osed on chronic kidney disease [facility] Work Phone: Evaluation note* Diagnosis Onset Date Resolution Status Constipation acute Dyspnea on minimal exertion acute Fecal impaction in rectum ac edward Acute kidney injury superimp osed on chronic kidney disease [facility] Work Phone: Evaluation note* Diagnosis Pleurodynia Painful respiration documented in this encounter [facility] note* Diagnosis Leg swelling Swelling of limb [facility]* Diagnosis Insomnia, unspecified type [facility]* Diagnosis Primary osteoarthritis of both shoulders- Primary [facility]* Diagnosis Female stress incontinence- Primary Chronic right-sided low back pain without sciatica Chronic knee pain, unspecified laterality Chronic shoulder pain, unspecified laterality Leg swelling Swelling of limb CKD (chronic kidney disease) stage 4, GFR 15-29 ml/min (HCC) Chronic kidney disease, Stage IV (severe) BENIGN HYPERTENSION(aka HTN) Essential hypertension, benign Hypothyroidism, acquired Unspecified hypothyroidism Hyperlipidemia LDL goal <100 Other and unspecified hyperlipidemia Insomnia, unspecified type Chronic constipation Unspecified constipation [facility] Diagnosis Primary osteoarthritis of both shoulders- Primary Lumbar spondylosis Lumbosacral spondylosis without myelopathy Myofascial pain Mylagia and myositis, unspecified Pleurodynia Painful respiration [facility]* Diagnosis Insomnia, unspecified type- Primary [facility]* Diagnosis Dizziness- Primary Dizziness and giddiness BENIGN HYPERTENSION(aka HTN) Essential hypertension, benign Hyperlipidemia LDL goal <100 Other and unspecified hyperlipidemia Leg swelling Swelling of limb CKD (chronic kidney disease) stage 4, GFR 15-29 ml/min (HCC) Chronic kidney disease, Stage IV (severe) Female stress incontinence Chronic right-sided low back pain without sciatica Chronic knee pain, unspecified laterality Chronic shoulder pain, unspecified laterality Hypothyroidism, acquired Unspecified hypothyroidism Insomnia, unspecified type documented [facility] Diagnosis Leg swelling Swelling of limb documented in this [facility] Diagnosis Primary osteoarthritis of both shoulders- Primary documented [facility]* Diagnosis 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 hyperplasia with atypia IUD (intrauterine device) in place Presence of intrauterine contraceptive device documented [facility]* Diagnosis Insomnia, unspecified type documented [facility] this [facility]* Diagnosis Falls- Primary Unspecified fall Balance problem Other symptoms involving nervous and musculoskeletal systems documented [facility] this [facility]* Diagnosis Primary osteoarthritis of both shoulders- Primary Lumbar spondylosis Lumbosacral spondylosis without myelopathy documented [facility] this [facility]* Diagnosis Hypothyroidism, acquired- Primary Unspecified hypothyroidism documented in this [facility]* Diagnosis Acute cough documented [facility] this [facility]* Diagnosis SOB (shortness of breath) Shortness of breath Rib pain on left side Chest pain, unspecified documented [facility] this [facility]* Diagnosis BENIGN HYPERTENSION(aka HTN)- Primary Essential hypertension, benign Hyperlipidemia LDL goal <100 Other and unspecified hyperlipidemia Leg swelling Swelling of limb Balance problem Other symptoms involving nervous and musculoskeletal systems Female stress incontinence Hypothyroidism, acquired Unspecified hypothyroidism Insomnia, unspecified type CKD (chronic kidney disease) stage 4, GFR 15-29 ml/min ([facility]) Chronic kidney disease, Stage IV (severe) Chronic shoulder pain, unspecified laterality Chronic right-sided low back pain without sciatica Chronic knee pain, unspecified laterality Encounter for immunization Need for other specified prophylactic vaccination against single bacterial disease documented [facility] this [facility]* Diagnosis Insomnia, unspecified type documented [facility] this [facility]* Diagnosis 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 Status epilepticus Epileptic grand mal status Acute kidney injury Acute kidney failure, unspecified Acute respiratory failure, unspecified whether with hypoxia or hypercapnia Anemia, unspecified type Chronic kidney disease, stage IV (severe) Chronic kidney disease, Stage IV (severe) Encephalopathy acute Encephalopathy, unspecified Hypovitaminosis D Unspecified vitamin D deficiency Heart failure with preserved ejection fraction, unspecified HF chronicity Benign hypertension Essential hypertension, benign Acute deep vein thrombosis (DVT) of non-extremity vein Anemia of chronic disease Anemia of other chronic disease Renal disease (High Serum Creatinine) Unspecified disorder of kidney and ureter Thrombocytopenia (Low Platelets) Thrombocytopenia, unspecified Acute on chronic heart failure with preserved ejection fraction Acute kidney injury superimposed on CKD Acute deep vein thrombosis (DVT) of non-extremity vein Severe obesity (BMI 35.0-39.9) with comorbidity Essential hypertension Unspecified essential hypertension [facility] Diagnosis Insomnia, unspecified type documented [facility] this [facility]* Diagnosis BENIGN HYPERTENSION(aka HTN)- Primary Essential hypertension, benign Leg swelling Swelling of limb Chronic kidney disease, stage 4 (severe) ([facility]) Chronic obstructive pulmonary disease, unspecified COPD type (HCC) Class 3 severe obesity with body mass index (BMI) of 40.0 to 44.9 in adult Iron deficiency anemia due to chronic blood loss Iron deficiency anemia secondary to blood loss (chronic) Recurrent UTI (urinary tract infection) Urinary tract infection, site not specified Hypothyroidism, acquired Unspecified hypothyroidism Seizures (HCC) Other convulsions Wound of right lower extremity, subsequent encounter Chronic deep 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 (HCC) Insomnia, unspecified type [facility] Diagnosis Lower respiratory infection- Primary Other diseases of respiratory system, not elsewhere classified [facility]* Diagnosis Anemia in chronic kidney disease, unspecified CKD stage- Primary Leg swelling Swelling of limb Essential hypertension, benign Iron deficiency anemia due to chronic blood loss Iron deficiency anemia secondary to blood loss (chronic) Hypothyroidism, acquired Unspecified hypothyroidism Seizures (HCC) Other convulsions Insomnia, unspecified type CKD (chronic kidney disease) stage 4, GFR 15-29 ml/min (HCC) Chronic kidney disease, Stage IV (severe) Hyperlipidemia LDL goal <100 Other and unspecified hyperlipidemia Chronic constipation Unspecified constipation documented [facility] this [facility]* Diagnosis Lower respiratory infection Other diseases of respiratory system, not elsewhere classified documented [facility] this encounter [facility]* Diagnosis Subacute cough- Primary Cough documented in this encounter [facility] Diagnosis Subacute cough Cough [facility] Diagnosis Subacute cough- Primary Cough Leg swelling Swelling of limb SOB (shortness of breath) Shortness of breath Lower respiratory infection Other diseases of respiratory system, not elsewhere classified [facility]* Diagnosis BENIGN HYPERTENSION(aka HTN)- Primary Essential hypertension, benign Lumbar spondylosis Lumbosacral spondylosis without myelopathy Myofascial pain Mylagia and myositis, unspecified Hypothyroidism, acquired Unspecified hypothyroidism Anemia in chronic kidney disease, unspecified CKD stage CKD (chronic kidney disease) stage 4, GFR 15-29 ml/min (HCC) Chronic kidney disease, Stage IV (severe) Bilateral leg edema Edema [facility] Author Michelle Gallardo [facility] Note Date/Time September 28, 2024 8:47 pm [facility] Medical Records Department [address] [place] [id number] H&P Exam - Hospitalist 09/28/241999 MR#: [id number] Acct: [id number] Name: MARI LOPEZ Rep #:[id number] : 1940 84 From: Michelle Gallardo MD PCP: BROOKLYN Aguillon Status:ADM I N Location: [place] [address] HPI - General General Date of Admission: 09/28/24 Date of Service: 09/28/24 Chief Complaint: Confusion, fatigue, poor oral intake. HPI Narrative The patient is an 84 y/o F w/ PMHx: PAF, COPD, Anxiety and depression, Morbid obesity, Seizure disorder, GERD, HTN, HLD, CKD stage III unclear subtype versus Stage IV, Chronic macrocytic anemia/Fe deficiency anemia, TADEO on CPAP, Hx VTE (DVT, PE), Hypothyroidism, Chronic lymphedema, HFpEF who presents to the [facility] ED on 09/28/2024 with history of generalized weakness and debility with bilateral knee pain however she recently became more weak and cannot even walk noting that her legs have been giving out with ongoing attemptsfor therapy twice daily but unfortunately given weakness and debility she had tohave EMS called to be able to help her up off the floor and over the last several days she notes she has developed a fine essential tremor in addition to reportedly in triage having some difficulty with word finding and she does report that she is cognizant of this and has been ongoing for several days but eventually prompted eventual ED evaluation. Patient roommate notes she has not been drinking/hydrating well. She notes she is still making urine. Workup in theED included T98, heart rate 100, BP 109/50, respiratory rate 16, 100% on room air with most recent repeat vitals heart rate 94, respiratory rate 13, 96% on room air, CBC with WBC 7.6, hemoglobin 9.2, MCV 104.2, platelet 206 without marked shift, CMP with potassium 6.0 not noted to be hemolyzed, chloride 113, carbon oxide 11, anion gap 15, BUN/creatinine 111/415, glucose 129, lactic acid less than 1, magnesium 3.1, total bilirubin 0.20, AST/LT 289/351, alk phos 130, total creatinine kinase pending upon request evaluation of patient, troponin initial 44, lipase 54, plain film of the left knee with no acute osseous findings/no evidence of acute fracture, plain film of the right knee with no acute osseous findings/no acute fracture, CT of the brain with no acute intracranial findings, EKG with PAF with peaked T waves V2 and QRS widening different than prior. In the ED patient ministered 2 L normal saline, albuterolinhalation 10 mg x 1, calcium gluconate 3 g IV x 1, insulin 10 units IV x 1, dextrose amp, sodium bicarbonate 150 mill equivalent IV x 1. Discussed with ED physician and patient will be administered dose low dose kayexelate. [facility] Medical History (Updated 09/28/24 @ 20:[address] Michelle Gallarod MD) PAF (paroxysmal atrial fibrillation) Wears glasses Post-menopausal Open wound Arthritis Walker as ambulation aid Bladder disease History of renal disease Anemia DVT (deep venous thrombosis) Low iron High cholesterol Back pain Seizures Hoarseness Non-smoker CPAP (continuous positive airway pressure) dependence Leg cramps History of edema History of echocardiogram History of stress test Cardiology follow-up encounter Urinary incontinence Osteopenia Spinal osteophytosis Status epilepticus Complicated urinary tract infection Osteoporosis Osteoarthritis Venous insufficiency of both lower extremities Hypothyroidism Pulmonary hypertension Diastolic dysfunction Elevated parathyroid hormone Metabolic acidosis Lymphedema Preop cardiovascular exam H/O hemorrhoids (HFpEF) heart failure with preserved ejection fraction History of pulmonary embolus (PE) COVID-19 (01/19/21) MRSA (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 Abdominal pain DVT (deep venous thrombosis) GERD (gastroesophageal reflux disease) Insomnia Obstructive sleep apnea Essential (primary) hypertension Incomplete left bundle branch block Morbid obesity with BMI of 45.0-49.9, adult Home Medications ?Medication ?Instructions ?Recorded ?Last Taken ?Type levonorgestrel (Mirena) 1 mcg intrauterine ONCE . Unknown History nitroglycerin 0.4 mg sublingual 0.4 mg sublingual Q5M PRN chest 06/27/22 Unknown Rx tablet pain #30 tabs polyethylene glycol 3350 17 gram 17 g PO DAILY bowel m obility #30 ea 06/09/23 02/24/24 Rx oral powder packet fluorometholone 0.1 % eye 1 drp ophthalmic (eye) BID e yes 02/24/24 09/05/24 History drops,suspension atorvastatin 40 mg tablet 40 mg PO QHS cholesterol 03/3009/05/24 History ferrous sulfate 324 mg (65 mg 324 mg PO DAILY Suppleme nt 05/18/24 09/05/24 History iron) tablet,delayed release levothyroxine 125 mcg tablet 125 mcg PO DAILY thyroid 05/18/24 09/05/24 History acetaminophen 325 mg tablet 650 mg (2 x 325 mg) PO TID #1 TAB 06/09/24 09/05/24 Rx bisacodyl 10 mg rectal suppository 10 mg MT X1 PRN Con stipation #1 ea 06/09/24 Unknown Rx calcium acetate(phosphat bind) 667 667 mg PO TIDCM #1 cap 06/09/24 Unknown Rx mg capsule magnesium hydroxide 400 mg/5 mL 30 ml PO X1 PRN Consti pation #30 mL 06/09/24 Unknown Rx oral suspension mirtazapine 15 mg tablet 7.5 mg (1/2 x 15 mg) PO 2000 #1 TAB 06/09/24 09/05/24 Rx sennosides 8.6 mg-docusate sodium 2 tab PO BID #1 TAB 06/09/24 Unknown Rx 50 mg tablet (Stimulant Laxative Plus) cholecalciferol (vitamin D3) 25 50 mcg PO DAILY supple ment 09/05/24 09/05/24 History mcg (1,000 unit) capsule furosemide 40 mg tablet 40 mg PO Q OTHER DAY 5 09/05/24 History lacosamide 100 mg tablet 100 mg PO BID 09/05/2409/05 History benzonatate 100 mg capsule 100 mg PO TID 09/06/24 Unkn own History carvedilol 6.25 mg tablet 6.25 mg PO Q12H 09/28/24 Unk nown History gabapentin 300 mg capsule 300 mg PO TID 09/28/24 Unkno wn History guaifenesin 600 mg tablet, 600 mg PO BID 09/28/24 Unkn own History extended release 12 hr multivitamin 1 tab PO DAILY 09/28/24 Unkn own History prednisone 20 mg tablet 40 mg PO DAILY 09/28/24 Unkn own History zinc gluconate 50 mg tablet 50 mg PO DAILY 09/28/24 Un known History zolpidem 5 mg tablet 10 mg PO QHS 09/28/24 Unknow n History Allergy/AdvReac Type Severity Reaction Status Date / Time cefazolin (From Kefzol) Allergy Severe hives/difficulty Verified 09/06/24 07:54 swallowing ibuprofen Allergy Unknown Rash Verified 09/06/24 07:54 peanut Allergy Anaphylaxis Verified 09/06/24 07:54 Sulfa (Sulfonamide Allergy Unknown Verified 09/06/24 07:54 Antibiotics) sulfamethoxazole (From Allergy Other Verified 09/06/24 07:54 Bactrim) trimethoprim (From Bactrim) Allergy Other Verified 09/06/24 07:54 Family History Mother Cancer uterine Father No problems noted. Surgical History History of esophagogastroduodenoscopy (EGD) Hx of colonoscopy Hx of left cataract extraction History of dental surgery History of open reduction and internal fixation (ORIF) procedure History of cardiac catheterization Hx laparoscopic cholecystectomy H/O shoulder replacement History of left heart catheterization (08/01/22) History of dilatation and curettage History of hysteroscopy History of bilateral knee replacement History of herniorrhaphy Status post debridement History of open reduction and internal fixation (ORIF) procedure H/O hemorrhoidectomy History of gastric bypass Social History household members: other details: She has a roomate housing: house number of children: 1 current occupational status: retired pets and animals: Yes pets and animals: dog(s) Smoking Status: Never smoker alcohol intake: never substance use type: does not use caffeine: Yes Type: coffee Number of servings: 3 ROS ROS Narrative Admission Review of Systems: CONSTITUTIONAL: No weight loss, fever, chills, + weakness or fatigue. HEENT: Eyes: No visual loss, blurred vision, double vision or yellow sclerae. Ears, Nose, Throat: No hearing loss, sneezing, congestion, runny nose or sore throat. SKIN: No rash or itching, lesions, wounds. CARDIOVASCULAR: No chest pain, chest pressure or chest discomfort, palpitations,edema, orthopnea, syncopal events. RESPIRATORY: No shortness of breath, cough or sputum, wheezing, hemoptysis. GASTROINTESTINAL: + Decreased appetite. Occasional nausea but no emesis. No marked constipation, diarrhea, abdominal pain, melena, BRBPR. GENITOURINARY: + Mildly decreased urine output, foul odor. No dysuria, frequency, urgency or retention. NEUROLOGICAL: + Confusion, generalized weakness. No headache, dizziness, syncope, paralysis, ataxia, numbness or tingling in the extremities, focal weakness, change in bowel or bladder control, seizure. MUSCULOSKELETAL: + muscle, back pain, joint pain or stiffness. HEMATOLOGIC: + Chronic anemia, easy bleeding/bruising. LYMPHATICS: No enlarged nodes. No history of splenectomy. PSYCHIATRIC: + History of anxiety and depression. ENDOCRINOLOGIC: No reports of sweating, cold or heat intolerance. No polyuria orpolydipsia. ALLERGIES: + History of anaphylaxis. Vital Signs Vital Signs Vital Signs: 09/28/24 13:11 09/28/24 17:00 09/28/24 19:00 Temperature 98 F Temperature Source Temporal Pulse Rate 100 83 96 Respiratory Rate 16 21 H 23 H Blood Pressure 109/50 L 102/81 H Blood Pressure Mean 69 88 Pulse Ox 100 96 98 Oxygen Delivery Method Room Air Room Air 09/28/24 19:17 Temperature Temperature Source Pulse Rate 94 Respiratory Rate 13 Blood Pressure Blood Pressure Mean Pulse Ox Oxygen Delivery Method Physical Exam Narrative Physical Examination: General: Awake, alert, oriented to self, place, year, month but she second- guesses herself, remained present does report that she significantly improved since initial ED arrival, encephalopathy is notably lessened. Skin: Normal color, normal turgor, no icterus, no cyanosis except for occasionalstage ecchymoses, abrasion, bilateral lower extremity mild venous stasis disease, lymphedema evident, right lower extremity skin graft and donor site healing well. HEENT: AT/NC, EOMI, PERRLA, dry MM, no discerned carotid bruits, difficult to discern JVD given very thickened neck. Lungs: Diminished, distant breath sounds likely secondary to habitus, no evidence of any distress, no rales, ronchi or wheezing. Heart: Irregular, rate controlled; no gallop, rub audible. Abdomen: Soft, morbidly obese, no discomfort with palpation, distant BS, difficult to discern distention HSM given habitus. Extremities: No cyanosis, c no clubbing, see skin, chronic bilateral lower extremity lymphedema evident. Neurological: Patient awake, alert, oriented as noted, improving since initial ED arrival, cognitive function per discussion with patient and family likely nearing baseline intact as had been significantly encephalopathic upon initial arrival, pupils equally reactive to light and accommodation, cranial nerves gross normal, moving all 4 extremities, no focal deficits, strength severely globally decreased Psychiatric: Affect appears flat, fatigued, no acute evidence of depressive or anxiety feelings but does have underlying psychiatric history. Results Lab / Micro Data 09/28/24 17:51 09/28/24 17:51 Labs: Laboratory Results - last 24 hr 09/28/24 17:51: WBC 7.6, RBC 2.88 L, Hgb 9.2 L, Hct 30.0 L, MCV 104.2 H, MCH 31.9, MCHC 30.7 L, RDW Std Deviation 58.2 H, RDW Coeff of Parris 15.5 H, Plt Count 206, MPV 13.2 H, Immature Gran % (Auto) 0.400, Neut % (Auto) 66.9, Lymph % (Auto) 20.1, Powell % (Auto) 8.7, Eos % (Auto) 3.6, Baso % (Auto) 0.3, Absolute Neuts (auto) 5.1, Absolute Lymphs (auto) 1.52, Nucleated RBC % 0, Sodium 139, Potassium 6.0 H*, Chloride 113 H, Carbon Dioxide 11.0 L, Anion Gap 15, BUN 111 H*, Creatinine 4.15 H, Est GFR (MDRD) Non-Af 10 L, BUN/Creatinine Ratio 26.7 H, Glucose 129 H, Lactic Acid < 1.0, Calcium 7.9, Magnesium 3.1 H, Total Bilirubin 0.20, AST 289 H, ALT 351 H, Alkaline Phosphatase 130 H, Troponin T High Sens 44 H, Total Protein 5.9, Albumin 3.1 L, Globulin 2.7, Albumin/Globulin Ratio 1.1, Lipase 54 09/28/24 18:56: Total Creatine Kinase 27 Imaging Radiology Impression Knee X-Ray 09/28/24 15:30 IMPRESSION: No obvious acute fracture. Reading Location: [facility] Brain CT 09/28/24 17:00 IMPRESSION: No acute intracranial process. Consider MR if symptoms persist. Reading Location: [facility] Knee X-Ray 09/28/24 17:05 IMPRESSION: No obvious acute fracture. Reading Location: [facility] Assessment & Plan Assessment/Plan (1) JOSE (acute kidney injury): PLAN: Plan The patient is an 84 y/o F w/ PMHx: PAF, COPD, Anxiety and depression, Morbid obesity, Seizure disorder, GERD, HTN, HLD, CKD stage III unclear subtype versus Stage IV, Chronic macrocytic anemia/Fe deficiency anemia, TADEO on CPAP, Hx VTE (DVT, PE), Hypothyroidism, Chronic lymphedema, HFpEF who presents to the [facility] ED on 09/28/2024 with history of generalized weakness and debility with bilateral knee pain however she recently became more weak and cannot even walk noting that her legs have been giving out with ongoing attemptsfor therapy twice daily but unfortunately given weakness and debility she had tohave EMS called to be able to help her up off the floor and over the last several days she notes she has developed a fine essential tremor in addition to reportedly in triage having some difficulty with word finding and she does report that she is cognizant of this and has been ongoing for several days but eventually prompted eventual ED evaluation. #1. Acute Encephalopathy, debility, weakness, fatigue and malaise with Adult FTT suspected secondary to metabolic derangements, JOSE on CKD on CKD stage III unclear subtype versus stage IV and concurrent Hyperkalemia: Secondary to poor intake coupled with nephrotoxic regimen. Admission BUN/Cr 111/4.15, GFR 10, prior baseline creatinine noted to be primarily 1.5-2.0, most recently 5creatinine 1.86, notable rise. Will admit to PCU, will judiciously hydrate specially given underlying HFpEF history, hold nephrotoxic medications and repeat chemistry in AM. Will obtain FeNa assessment and request renal US. Nephrology consulted. Will continue to treat hyperkalemic presentation concurrently as noted. PT/OT/CM consulted for discharge planning. #2. Hyperkalemia with associated EKG changes: Admission potassium 6.0, not noted to be hemolyzed, administered hyperkalemic protocol in the ED with insulin, calcium gluconate, albuterol, will also administer lower dose Kayexalate and continue to trend closely BMP to ensure not rising, will repeat hyperkalemic protocol as needed, maintain on telemetry. #3. Acute transaminitis: Suspected secondary to severe dehydration with acute presentation as noted #1, will continue treatments as noted above, temporarily hold statin, repeat CMP in AM. #4. HFpEF: Most recently noted ECHO 05/12/24 with normal LV size/thickness, normal global systolic function, mild hypokinesis inferior wall, EF normal, diastolic function normal, no marked valvular heart disease, PASP not able to beestimated at that time, inferior vena cava normal size. Will continue Eliquis regimen with renal dosing as needed, temporally holding statin therapy given elevated LFTs however and if they do not rise further low threshold to add, will continue Coreg, holding diuretic, currently's does not appear to be on JEANCARLOS inhibitor/ARB with underlying renal disease. Closely monitor for overload givenusage of IV fluids given #1, #2. #5. PAF: Will continue patient home Coreg and Eliquis regimen, currently in theED patient is rate controlled in atrial fibrillation. She notes following with Dr. Jackson outpatient. #6. Chronic macrocytic anemia/Fe deficiency: Admission hemoglobin 9.2, MCV 104.2, baseline hemoglobin noted to be primarily 8-9, stable, continue to trend,continue home iron supplementation. #7. Recent RLE skin graft and the right thigh donor site secondary to history of recent chronic right lower extremity wound: Following w/ Dr. Lomax, most recent office visit noted 09/20/2024, will continue Aquaphor to the right lower extremity and thigh twice daily, will avoid dressings over the healed areas, will continue to use compression twice daily and encourage continued follow-up as previously requested in 3 weeks from her most recent visit. #8. Chronic COPD: Noted in previous chart history, per current list does not appear to to be on any chronic inhaler regimen, if necessary will add, the interim will maintain on PRN albuterol, HOB, IS parameters. #9. Anxiety and depression: Will continue psychiatric regimen with hold/adjustments for sedated regimen, acute kidney injury. #10. Seizure disorder: Will continue patient home antiepileptic regimen with adjustments as needed given acute kidney injury and hyperkalemia. #11. History of VTE: Patient status post history DVT, PE, continued on Eliquis regimen as noted with adjustments as needed per pharmacy given JOSE. #12. Hypothyroidism: Will continue patient on levothyroxine regimen. #13. Morbid Obesity: Weight loss and lifestyle changes encouraged. #14. Chronic bilateral lower extremity edema: Encourage elevation, will continue SCDs, continue treatment and care given recent right lower extremity skin graft/thigh donor site per Dr. Lomax as noted secondary to history of previous right lower extremity chronic wound. #15. GERD: Likely patient on PPI. #16. TADEO: Per record patient has not been using since gastric bypass, clarifiedto be certain. #17. DVT prophylaxis: Will continue patient home Eliquis regimen with dose adjustments as needed given JOSE presentation. #18. CODE status: Patient HARVEY is her roommate and friend who is present and living will is currently in place. Discussed CODE status at length including difference between FULL code, DNR-CCA and DNR-CC status. Following discussions about the differences in these status, requested DNR-CCA, no intubation status. Advanced Care Planning Face to Face Time: 16 minutes. Charges/Coding Visit Charges Inpatient E&M: 30390 Init Hosp L3 Procedures Hospitalists Procedures: 76610 Advncd Care Plan 30 Min 09/28/242046 <Electronically signed by Michelle Gallardo MD> Cosigner Signature (if applicable): CC: BROOKLYN Orozco; Dr. Michelle Gallardo MD~ Signed [facility] Work Phone: Hospital Discharge instructions Additional Instructions X-ray right leg negative. Continue ice to help with burning. Jeancarlos wrap to help with compression. You have medication of oxycodone use at facility. Daily wound care. Follow-up with wound care clinic to make sure appropriate healing.[facility] Work Phone: Reason for referral (narrative)* Diagnostic Procedure Only (Routine) - Closed Specialty Diagnoses / Procedures Referred By Contac t Referred To Contact XR IMAGING Diagnoses SOB (shortness of breath) Rib pain on left side Procedures XR RIBS/CHEST 3V AP RIB/OBLS/CXR LEFT RADEX RIBS UNI W/POSTEROANT CH MINIMUM 3 VIEWS Lizy Capone MD [address] [place] [address] Xr Imaging Referral ID Status Reason Start Date Expiration Date V isits Requested Visits Authorized [id number] Closed Auto-Generate d Referral 07/16/2021 08/15/2022 1 1 [facility] for referral (narrative)* - Authorized Specialty Diagnoses / Procedures Referred By Contac t Referred To Contact Physical Therapy Diagnoses Lumbar spondylosis Thoracic spine pain Myofascial pain Procedures CONSULT TO PHYSICAL THERAPY Avis Marrufo, MARKET MANAGER.DIGITAL DATA ANALYST [address] [place] [address] Referral ID Status Reason Start Date Expiration Date V isits Requested Visits Authorized [id number] Authorized 09/19/2021 12/18/2021 99 99 * Diagnostic Procedure Only (Routine) - Pending Review Specialty Diagnoses / Procedures Referred By Contac t Referred To Contact XR IMAGING Diagnoses Thoracic spine pain Procedures XR THORACIC LIMITED 2V AP/LAT RADEX SPINE THORACIC 2 VIEWS Avis Marrufo, MARKET MANAGER.DIGITAL DATA ANALYST [address] [place] [address] Xr Imaging Referral ID Status Reason Start Date Expiration Date Visits Requested Visits Authorized [id number] Pending Review Auto-Generat ed Referral 09/19/2021 10/19/2022 1 1 * Diagnostic Procedure Only (Routine) - Pending Review Specialty Diagnoses / Procedures Referred By Contac t Referred To Contact XR IMAGING Diagnoses Lumbar spondylosis Procedures XR LUMBAR MOTION 4V AP/LAT/ FLEX/EXT RADEX SPINE LUMBOSACRAL MINIMUM 4 VIEWS Avis Marrufo APRN.DIGITAL DATA ANALYST [address] [place] [address] Xr Imaging Referral ID Status Reason Start Date Expiration Date Visits Requested Visits Authorized [id number] Pending Review Auto-Generat ed Referral 09/19/2021 10/19/2022 1 1 [facility] for referral (narrative)* Diagnostic Procedure Only (Routine) - Closed Specialty Diagnoses / Procedures Referred By Contac t Referred To Contact XR IMAGING Diagnoses Thoracic spine pain Procedures XR THORACIC LIMITED 2V AP/LAT RADEX SPINE THORACIC 2 VIEWS Avis Marrufo APRN.DIGITAL DATA ANALYST [address] [place] [address] Xr Imaging Referral ID Status Reason Start Date Expiration Date V isits Requested Visits Authorized [id number] Closed Auto-Generate d Referral 09/19/2021 10/19/2022 1 1 * Diagnostic Procedure Only (Routine) - Closed Specialty Diagnoses / Procedures Referred By Contac t Referred To Contact XR IMAGING Diagnoses Lumbar spondylosis Procedures XR LUMBAR MOTION 4V AP/LAT/ FLEX/EXT RADEX SPINE LUMBOSACRAL MINIMUM 4 VIEWS Avis Marrufo APRN.DIGITAL DATA ANALYST [address] [place] [address] Xr Imaging Referral ID Status Reason Start Date Expiration Date V isits Requested Visits Authorized [id number] Closed Auto-Generate d Referral 09/19/2021 10/19/2022 1 1 [facility] for referral (narrative)* Diagnostic Procedure Only (Urgent) - Closed Specialty Diagnoses / Procedures Referred By Contac t Referred To Contact US IMAGING Diagnoses Abdominal distension Procedures US ABDOMEN COMPLETE US ABDOMINAL REAL TIME W/IMAGE DOCUMENTATION Miryam Orozco APRN.DIGITAL DATA ANALYST [address] [place] [address] Us Imaging Referral ID Status Reason Start Date Expiration Date V isits Requested Visits Authorized [id number] Closed Auto-Generate d Referral 01/02/2022 02/01/2023 1 1 [facility] for referral (narrative)* Diagnostic Procedure Only (Routine) - Closed Specialty Diagnoses / Procedures Referred By Contac t Referred To Contact XR IMAGING Diagnoses Fall, initial encounter Procedures XR ELBOW SPECIAL VIEWS AP/LAT/OTHER LEFT RADEX ELBOW COMPLETE MINIMUM 3 VIEWS Jae Cagle MD [address] [place] [address] Xr Imaging Referral ID Status Reason Start Date Expiration Date V isits Requested Visits Authorized [id number] Closed Auto-Generate d Referral 05/13/2022 06/12/2023 1 1 * Diagnostic Procedure Only (Routine) - Closed Specialty Diagnoses / Procedures Referred By Contac t Referred To Contact XR IMAGING Diagnoses Fall, initial encounter Procedures XR HIP GENERAL 3V PELV/AP/LAT RIGHT RADEX HIP UNILATERAL WITH PELVIS 2-3 VIEWS Jae Cagle MD [address] [place] [address] Xr Imaging Referral ID Status Reason Start Date Expiration Date V isits Requested Visits Authorized [id number] Closed Auto-Generate d Referral 05/13/2022 06/12/2023 1 1 [facility] for referral (narrative)* Outpatient Procedure (Routine) - Pending Review Specialty Diagnoses / Procedures Referred By Contac t Referred To Contact [facility] Diagnoses Female stress incontinence Urge urinary incontinence Procedures URODYNAMICS WHI COMPLX CYSTOMETRO W/VOID PRESS&URETHRAL PROFILE Ragini Gomes APRN.CNP [address] [place] [address] x2 [facility] [address] [place] [address] Referral ID Status Reason Start Date Expiration Date Visits Requested Visits Authorized [id number] Pending Review Auto-Generat ed Referral 06/30/2022 06/30/2023 1 1 [facility] for referral (narrative)* Diagnostic Procedure Only (Routine) - Closed Specialty Diagnoses / Procedures Referred By Contac t Referred To Contact XR IMAGING Diagnoses Primary osteoarthritis of both shoulders Rotator cuff impingement syndrome, unspecified laterality Procedures XR SHOULDER [id number] AP/TRUE AP RIGHT RADEX SHOULDER COMPLETE MINIMUM 2 VIEWS Roque Delgado MD [address] [place] [address] [place] [id number] Referral ID Status Reason Start Date Expiration Date V isits Requested Visits Authorized [id number] Closed Auto-Generate d Referral 01/15/2023 02/14/2024 1 1 * Diagnostic Procedure Only (Routine) - Closed Specialty Diagnoses / Procedures Referred By Contac t Referred To Contact XR IMAGING Diagnoses Primary osteoarthritis of both shoulders Rotator cuff impingement syndrome, unspecified laterality Procedures XR SHOULDER LIMITED 2V AP/TRUE AP LEFT RADEX SHOULDER COMPLETE MINIMUM 2 VIEWS Roque Delgado MD [address] [place] [address] [place] [address] Referral ID Status Reason Start Date Expiration Date V isits Requested Visits Authorized [id number] Closed Auto-Generate d Referral 01/15/2023 02/14/2024 1 1 [facility] for referral (narrative)* Diagnostic Procedure Only (Routine) - Closed Specialty Diagnoses / Procedures Referred By Contac t Referred To Contact XR IMAGING Diagnoses Closed fracture of base of fifth metatarsal bone of right foot at metaphyseal-diaphyseal junction, initial encounter Procedures XR FOOT GENERAL 3V AP/LAT/OBL RIGHT RADEX FOOT COMPLETE MINIMUM 3 VIEWS Roque Delgado MD [address] [address] [place] [address] Referral ID Status Reason Start Date Expiration Date V isits Requested Visits Authorized [id number] Closed Auto-Generate d Referral 07/31/2022 08/30/2023 1 1 [facility] for referral (narrative)* Diagnostic Procedure Only (Routine) - Closed Specialty Diagnoses / Procedures Referred By Contac t Referred To Contact XR IMAGING Diagnoses Fall, initial encounter Procedures XR ELBOW SPECIAL VIEWS AP/LAT/OTHER LEFT RADEX ELBOW COMPLETE MINIMUM 3 VIEWS Jae Cagle MD [address] [place] [address] [place] [address] Referral ID Status Reason Start Date Expiration Date V isits Requested Visits Authorized [id number] Closed Auto-Generate d Referral 05/13/2022 06/12/2023 1 1 * Diagnostic Procedure Only (Routine) - Closed Specialty Diagnoses / Procedures Referred By Contac t Referred To Contact XR IMAGING Diagnoses Fall, initial encounter Procedures XR HIP GENERAL 3V PELV/AP/LAT RIGHT RADEX HIP UNILATERAL WITH PELVIS 2-3 VIEWS Jae Cagle MD [address] [place] [address] [place] [address] Referral ID Status Reason Start Date Expiration Date V isits Requested Visits Authorized [id number] Closed Auto-Generate d Referral 05/13/2022 06/12/2023 1 1 [facility] for referral (narrative)* Diagnostic Procedure Only (Routine) - Closed Specialty Diagnoses / Procedures Referred By Contac t Referred To Contact XR IMAGING Diagnoses Primary osteoarthritis of both shoulders Rotator cuff impingement syndrome, unspecified laterality Procedures XR SHOULDER [id number] AP/TRUE AP RIGHT RADEX SHOULDER COMPLETE MINIMUM 2 VIEWS Roque Delgado MD [address] [address] [place] [address] Referral ID Status Reason Start Date Expiration Date V isits Requested Visits Authorized [id number] Closed Auto-Generate d Referral 01/15/2023 02/14/2024 1 1 * Diagnostic Procedure Only (Routine) - Closed Specialty Diagnoses / Procedures Referred By Contac t Referred To Contact XR IMAGING Diagnoses Primary osteoarthritis of both shoulders Rotator cuff impingement syndrome, unspecified laterality Procedures XR SHOULDER LIMITED 2V AP/TRUE AP LEFT RADEX SHOULDER COMPLETE MINIMUM 2 VIEWS Roque Delgado MD [address] [address] [place] [address] Referral ID Status Reason Start Date Expiration Date V isits Requested Visits Authorized [id number] Closed Auto-Generate d Referral 01/15/2023 02/14/2024 1 1 [facility] for referral (narrative)* Diagnostic Procedure Only (Routine) - Closed Specialty Diagnoses / Procedures Referred By Contac t Referred To Contact XR IMAGING Diagnoses SOB (shortness of breath) Rib pain on left side Procedures XR RIBS/CHEST 3V AP RIB/OBLS/CXR LEFT RADEX RIBS UNI W/POSTEROANT CH MINIMUM 3 VIEWS Lizy Capone MD [address] [place] [address] [place] [address] Referral ID Status Reason Start Date Expiration Date V isits Requested Visits Authorized [id number] Closed Auto-Generate d Referral 07/16/2021 08/15/2022 1 1 [facility] for visit Narrative* Diagnostic Procedure Only (Routine) - Closed Specialty Diagnoses / Procedures Referred By Contac t Referred To Contact XR IMAGING Diagnoses Thoracic spine pain Procedures XR THORACIC LIMITED 2V AP/LAT RADEX SPINE THORACIC 2 VIEWS Yaron Avis M, MARKET MANAGER.DIGITAL DATA ANALYST [address] [place] [address] Xr Imaging Referral ID Status Reason Start Date Expiration Date V isits Requested Visits Authorized [id number] Closed Auto-Generate d Referral 09/19/2021 10/19/2022 1 1 [facility] for visit Narrative* Diagnostic Procedure Only (Urgent) - Closed Specialty Diagnoses / Procedures Referred By Contac t Referred To Contact US IMAGING Diagnoses Abdominal distension Procedures US ABDOMEN COMPLETE US ABDOMINAL REAL TIME W/IMAGE DOCUMENTATION Miryam Orozco, MARKET MANAGER.DIGITAL DATA ANALYST [address] [place] [address] Us Imaging Referral ID Status Reason Start Date Expiration Date V isits Requested Visits Authorized [id number] Closed Auto-Generate d Referral 01/02/2022 02/01/2023 1 1 [facility] for visit Narrative* Diagnostic Procedure Only (Routine) - Closed Specialty Diagnoses / Procedures Referred By Contac t Referred To Contact XR IMAGING Diagnoses Closed fracture of base of fifth metatarsal bone of right foot at metaphyseal-diaphyseal junction, initial encounter Procedures XR FOOT GENERAL 3V AP/LAT/OBL RIGHT RADEX FOOT COMPLETE MINIMUM 3 VIEWS Roque Delgado MD [address] [address] [place] [address] Referral ID Status Reason Start Date Expiration Date V isits Requested Visits Authorized [id number] Closed Auto-Generate d Referral 07/31/2022 08/30/2023 1 1 [facility] for visit Narrative* Diagnostic Procedure Only (Routine) - Closed Specialty Diagnoses / Procedures Referred By Contac t Referred To Contact XR IMAGING Diagnoses Fall, initial encounter Procedures XR ELBOW SPECIAL VIEWS AP/LAT/OTHER LEFT RADEX ELBOW COMPLETE MINIMUM 3 VIEWS Jae Cagle MD [address] [place] [address] [place] [address] Referral ID Status Reason Start Date Expiration Date V isits Requested Visits Authorized [id number] Closed Auto-Generate d Referral 05/13/2022 06/12/2023 1 1 [facility] for visit Narrative* Diagnostic Procedure Only (Routine) - Closed Specialty Diagnoses / Procedures Referred By Contac t Referred To Contact XR IMAGING Diagnoses Primary osteoarthritis of both shoulders Rotator cuff impingement syndrome, unspecified laterality Procedures XR SHOULDER [id number] AP/TRUE AP RIGHT RADEX SHOULDER COMPLETE MINIMUM 2 VIEWS Roque Delgado MD [address] [facility] [address] [place] [address] [place] [id number] Referral ID Status Reason Start Date Expiration Date V isits Requested Visits Authorized [id number] Closed Auto-Generate d Referral 01/15/2023 02/14/2024 1 1 [facility] for visit Narrative* Diagnostic Procedure Only (Routine) - Closed Specialty Diagnoses / Procedures Referred By Contac t Referred To Contact XR IMAGING Diagnoses SOB (shortness of breath) Rib pain on left side Procedures XR RIBS/CHEST 3V AP RIB/OBLS/CXR LEFT RADEX RIBS UNI W/POSTEROANT CH MINIMUM 3 VIEWS Lizy Capone MD [address] [place] [address] [place] [id number] Referral ID Status Reason Start Date Expiration Date V isits Requested Visits Authorized [id number] Closed Auto-Generate d Referral 07/16/2021 08/15/2022 1 1 [facility] for visit Narrative* Auth/Cert Specialty Diagnoses / Procedures Referred By Contac t Referred To Contact Diagnoses status Kindra Gannon MD [address] [facility] [address] [place] [address] Phone: tel: fax: [facility] [address] [place] [address] Referral ID Status Reason Start Date Expiration Date Visits Re quested Visits Authorized [id number] 1 1 [facility] Advance Directives Documents on File Type Date Recorded Patient Survey Research Manager 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 Advance Directive(s) 12/23/2016 7:30 PM Advance Directive(s) 05/22/2006 12:00 AM Advance Directive(s) 05/21/2006 12:00 AM Documents on File Type Date Recorded Patient Survey Research Manager 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 Advance Directive(s) 12/23/2016 7:30 PM Advance Directive(s) 05/22/2006 12:00 AM Advance Directive(s) 05/21/2006 12:00 AM Advance Directive Response Recorded Date/ Time Advance Directives Yes April 15, 2016 10:57am Living Will Yes December 31, 2017 2:02pm Power of Sponge Diver Yes December 2:02pm Documents on File Type Date Recorded Patient Survey Research Manager 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 Advance Directive(s) 05/22/2006 Advance Directive(s) 05/21/2006 Documents on File Type Date Recorded Patient Survey Research Manager 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 Advance Directive(s) 05/22/2006 Advance Directive(s) 05/21/2006 Advance Directive Response Recorded Date/ Time Advance Directives Yes December 7:36am Living Will Yes December 26, 2021 7:36am Power of Sponge Diver Yes December 7:36am Advance Directive Response Recorded Date/ Time Advance Directives Yes December 6:36am Living Will Yes December 26, 2021 6:36am Power of Sponge Diver Yes December 6:36am Advance Directive Response Recorded Date/ Time Advance Directives on File Yes August 01, 2022 7:31am Name of Medical Power of Sponge Diver Connor Castro August 01, 2022 7:31am Advance Directives Yes August 01 023 7:31am Living Will Yes August 01, 2022 7:31am Power of Sponge Diver Yes August 01 7:31am Advance Directive Response Recorded Date/ Time Advance Directives Yes August 01 023 6:31am Living Will Yes June 07, 2023 9:40pm Power of Sponge Diver Yes June 06 9:40pm Name of Medical Power of Sponge Diver alex rodgers June 07, 2023 9:40pm Advance Directive Response Recorded Date/ Time Name of Medical Power of Sponge Diver gonzalo rod June 08, 2023 1:28am Advance Directives Yes Denise 28th, 2 023 6:31am Living Will Yes June 08, 2023 1:28am Power of Sponge Diver Yes June 07 1:28am Documents on File Type Date Recorded Patient Survey Research Manager 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 Advance Directives/Living Will 05/05/2024 1:51 PM Living Will HealthCare Power of Sponge Diver 05/05/2024 1:49 PM HCPOA Date Activated Date Inactivated Comments 05/04/2024 10:28 PM Advance Directive Response Recorded Date/ Time Living Will No May 01 5:37pm Do you have a Healthcare Pow er of Sponge Diver? No May 01, 2024 5:37pm Living Will Yes May 19, 2 025 4:09pm Do you have a Healthcare Pow er of Sponge Diver? Yes May 19, 2024 4:09pm Name of Medical Power of Sponge Diver Katie stewart May 19, 2024 4:09pm Advance Directives Yes August 01, 2 023 7:31am Advance Directive Response Recorded Date/ Time Living Will No May 01 5:37pm Do you have a Healthcare Pow er of Sponge Diver? No May 01, 2024 5:37pm Living Will Yes May 19, 2 025 4:09pm Do you have a Healthcare Pow er of Sponge Diver? Yes May 19, 2024 4:09pm Name of Medical Power of Sponge Diver Katiecatie stewart May 19, 2024 4:09pm Do you have a Healthcare Pow er of Sponge Diver? Yes July 29, 2024 3:00pm Name of Medical Power of Sponge Diver Gonzalo July 29, 2024 3:00pm Advance Directives Yes August 01, 2 023 7:31am Advance Directive Response Recorded Date/ Time Living Will Yes May 19, 2 025 4:09pm Do you have a Healthcare Pow er of Sponge Diver? Yes May 19, 2024 4:09pm Name of Medical Power of Sponge Diver Katielesley Atkinsono pat May 19, 2024 4:09pm Do you have a Healthcare Pow er of Sponge Diver? Yes July 29, 2024 3:00pm Name of Medical Power of Sponge Diver Gonzalo July 29, 2024 3:00pm Advance Directives Yes August 01, 2 023 7:31am Advance Directive Response Recorded Date/ Time Do you have a Healthcare Pow er of Sponge Diver? Yes September 02, 2024 11:04am Living Will Yes May 19, 2 025 4:09pm Do you have a Healthcare Pow er of Sponge Diver? Yes May 19, 2024 4:09pm Name of Medical Power of Sponge Diver Katie stewart May 19, 2024 4:09pm Do you have a Healthcare Pow er of Sponge Diver? Yes July 29, 2024 3:00pm Name of Medical Power of Sponge Diver Gonzalo July 29, 2024 3:00pm Advance Directives Yes August 01, 2 023 7:31am Advance Directive Response Recorded Date/ Time Do you have a Healthcare Pow er of Sponge Diver? Yes September 02, 2024 11:04am Do you have a Healthcare Pow er of Sponge Diver? No September 28, 2024 3:13pm Living Will Yes May 19, 2 025 4:09pm Do you have a Healthcare Pow er of Sponge Diver? Yes May 19, 2024 4:09pm Name of Medical Power of Sponge Diver Katie stewart May 19, 2024 4:09pm Do you have a Healthcare Pow er of Sponge Diver? Yes July 29, 2024 3:00pm Name of Medical Power of Sponge Diver Gonzalo July 29, 2024 3:00pm Advance Directives Yes August 01, 2 023 7:31am Reason for Referral Specialty Diagnoses / Procedures Referred By Contac t Referred To Contact CT IMAGING Diagnoses Left upper quadrant abdominal pain Procedures CT ABD/PEL WO IVCON CT ABD & PEL[place] [address] [place] [id number] Referral ID Status Reason Start Date Expiration Date Visits Requested Visits Authorized [id number] Authorized Auto-Generat ed Referral 07/18/2021 08/17/2022 1 1 Referral ID Status Reason Start Date Expiration Date V isits Requested Visits Authorized [id number] Closed Auto-Generate d Referral 07/18/2021 08/17/2022 1 1 Specialty Diagnoses / Procedures Referred By Contac t Referred To Contact Pain Management Diagnoses Rib pain on left side Procedures CONSULT TO PAIN MGT OFFICE/OUTPATIENT [facility] 60-74 MINUTES Lizy Capone MD [address] [place] [address] Referral ID Status Reason Start Date Expiration Date Visits Requested Visits Authorized [id number] Authorized PCP Requested Referral 08/01/2021 08/01/2022 1 1 Specialty Diagnoses / Procedures Referred By Contac t Referred To Contact [facility] Diagnoses Lymphedema Procedures CONSULT TO LYMPHEDEMA THERAPY OFFICE/OUTPATIENT [facility] 60-74 MINUTES Lizy Capone MD [address] [place] [address] [facility] [address] [address] Referral ID Status Reason Start Date Expiration Date Visits Requested Visits Authorized [id number] Authorized Auto-Generat ed Referral 11/13/2021 11/13/2022 99 99 Specialty Diagnoses / Procedures Referred By Contac t Referred To Contact [facility] Diagnoses Lymphedema Procedures CONSULT TO PHYSICAL THERAPY PHYSICAL THERAPY EVALUATION HIGH COMPLEX 45 MINS Lizy Capone MD [address] [place] [address] [facility] [address] [place] [address] Referral ID Status Reason Start Date Expiration Date Visits Requested Visits Authorized [id number] Authorized PCP Requested Referral Auto-Generate d Referral 11/13/2021 11/13/2022 99 99 Specialty Diagnoses / Procedures Referred By Contac t Referred To Contact Nephrology Diagnoses Function kidney decreased Procedures CONSULT TO NEPHROLOGY OFFICE/OUTPATIENT [facility] 60-74 MINUTES Miryam Orozco, NANCI.DIGITAL DATA ANALYST [address] [place] [address] Referral ID Status Reason Start Date Expiration Date Visits Requested Visits Authorized [id number] Authorized PCP Requested Referral 01/02/2022 01/02/2023 1 1 Specialty Diagnoses / Procedures Referred By Contac t Referred To Contact US IMAGING Diagnoses Abdominal distension Procedures US ABDOMEN COMPLETE US ABDOMINAL REAL TIME W/IMAGE DOCUMENTATION Miryam Orozco APRN.DIGITAL DATA ANALYST [address] [place] [address] Us Imaging Referral ID Status Reason Start Date Expiration Date Visits Requested Visits Authorized [id number] Authorized Auto-Generat ed Referral 01/02/2022 02/01/2023 1 1 Specialty Diagnoses / Procedures Referred By Contac t Referred To Contact Urology Diagnoses Female stress incontinence Procedures CONSULT TO UROLOGY OFFICE/OUTPATIENT [facility] 60-74 MINUTES Miryam Orozco, MARKET MANAGER.DIGITAL DATA ANALYST [address] [place] [address] Referral ID Status Reason Start Date Expiration Date Visits Requested Visits Authorized [id number] Authorized PCP Requested Referral 06/26/2022 06/26/2023 1 1 Specialty Diagnoses / Procedures Referred By Contac t Referred To Contact Nephrology Diagnoses Decreased glomerular filtration rate (GFR) Procedures CONSULT TO NEPHROLOGY OFFICE/OUTPATIENT [facility] 60-74 MINUTES Miryam Orozco, MARKET MANAGER.DIGITAL DATA ANALYST [address] [place] [address] Referral ID Status Reason Start Date Expiration Date Visits Requested Visits Authorized [id number] Authorized PCP Requested Referral 12/24/2022 12/24/2023 1 1 Specialty Diagnoses / Procedures Referred By Contac t Referred To Contact MR IMAGING Diagnoses Thoracic spine pain Chronic midline thoracic back pain Procedures MRI THORACIC SPINE WO IVCON MRI SPINAL CANAL THORACIC W/O CONTRAST MATRL Avis Marrufo, MARKET MANAGER.DIGITAL DATA ANALYST [address] [place] [address] [place] [address] Referral ID Status Reason Start Date Expiration Date V isits Requested Visits Authorized [id number] Closed Auto-Generate d Referral 04/03/2022 05/03/2023 1 1 Specialty Diagnoses / Procedures Referred By Contac t Referred To Contact MR IMAGING Diagnoses Lumbar spondylosis Spinal stenosis of lumbar region without neurogenic claudication Procedures MRI LUMBAR SPINE WO IVCON MRI SPINAL CANAL LUMBAR W/O CONTRAST MATERIAL Avis Marrufo, MARKET MANAGER.DIGITAL DATA ANALYST [address] [place] [address] [place] [address] Referral ID Status Reason Start Date Expiration Date V isits Requested Visits Authorized [id number] Closed Auto-Generate d Referral 04/03/2022 05/03/2023 1 1 Specialty Diagnoses / Procedures Referred By Contac t Referred To Contact [facility] Diagnoses Falls Balance problem Procedures CONSULT TO PHYSICAL THERAPY PHYSICAL THERAPY EVALUATION HIGH COMPLEX 45 MINS Miryam Orozco APRN.DIGITAL DATA ANALYST [address] [place] [address] [facility] [address] [place] [address] Referral ID Status Reason Start Date Expiration Date Visits Requested Visits Authorized [id number] Authorized PCP Requested Referral Auto-Generate d Referral 12/14/2023 12/13/2024 99 99 Specialty Diagnoses / Procedures Referred By Contac t Referred To Contact Orthopedics Diagnoses Primary osteoarthritis of both shoulders Procedures CONSULT TO ORTHOPAEDICS OFFICE/OUTPATIENT [facility] 60 MINUTES Roque Delgado MD [address] [facility] [address] [place] [address] Referral ID Status Reason Start Date Expiration Date Visits Requested Visits Authorized [id number] Authorized PCP Requested Referral 12/17/2023 12/16/2024 1 1 Chief Complaint and Reason for Visit Chief Complaint PER PCP, SOB E-ORDER Reason for Visit Dyspnea on minimal e xertion Essential (primary) hypertension Chief Complaint PER PCP, SOB E-ORDER Left bundle-branch block, unspecified Reason for Visit Dyspnea on minimal e xertion Essential (primary) hypertension Chief Complaint PER PCP, SOB E-ORDER Left bundle-branch block, unspecified E-ORDER Reason for Visit Dyspnea on minimal e xertion Essential (primary) hypertension Chief Complaint Left bundle-branch b lock, unspecified E-ORDER soft tisssue disorders SOFT TISSUE DISORDER Reason for Visit Chronic acquired lym phedema Chief Complaint E-ORDER soft tisssue disorders SOFT TISSUE DISORDER cellulitis/swelling legs EORDERS Reason for Visit Chronic acquired lym phedema Abdominal ascites Swelling of left lower extremity Chronic acquired lymphedema Chief Complaint soft tisssue disorde rs SOFT TISSUE DISORDER cellulitis/swelling legs EORDERS Congestive heart failure INT LABS Reason for Visit Chronic acquired lym phedema Swelling of left lower extremity Chronic acquired lymphedema Acute diastolic (congestive) heart failure Dyspnea on minimal exertion Essential (primary) hypertension Chief Complaint soft tisssue disorde rs SOFT TISSUE DISORDER cellulitis/swelling legs EORDERS Congestive heart failure INT LABS Amb Documentation 2 ORDERING LISA/DR JACKSON E ORDER Reason for Visit Chronic acquired lym phedema Swelling of left lower extremity Chronic acquired lymphedema Dyspnea on minimal exertion Essential (primary) hypertension Chief Complaint soft tisssue disorde rs SOFT TISSUE DISORDER cellulitis/swelling legs EORDERS Congestive heart failure INT LABS Amb Documentation 2 ORDERING LISA/DR JACKSON E ORDER 6 M FU URINE SAMPLE Reason for Visit Chronic acquired lym phedema Swelling of left lower extremity Chronic acquired lymphedema Dyspnea on minimal exertion Essential (primary) hypertension (HFpEF) heart failure with preserved ejection fraction Essential (primary) hypertension Chief Complaint INT LABS Amb Documentation 2 ORDERING LISA/DR JACKSON E ORDER 6 M FU URINE SAMPLE DUE AROUND DATE LISTED PER ORDER Reason for Visit (HFpEF) heart failur e with preserved ejection fraction Essential (primary) hypertension Chief Complaint 2 ORDERING LISA/ E ORDER 6 M FU URINE SAMPLE DUE AROUND DATE LISTED PER ORDER Reason for Visit (HFpEF) heart failur e with preserved ejection fraction Essential (primary) hypertension Chief Complaint DUE AROUND DATE LIST ED PER ORDER 4 M FU CP, HFPEF CP, HFPEF CP, HFPEF Reason for Visit Chest pain (HFpEF) heart failure with preserved ejection fraction Essential (primary) hypertension Chief Complaint 4 M FU CP, HFPEF CP, HFPEF CP, HFPEF 3 m fu W HOSPITAL SCIENTIST PER HOSPITAL SCIENTIST Reason for Visit Chest pain (HFpEF) heart failure with preserved ejection fraction Essential (primary) hypertension (HFpEF) heart failure with preserved ejection fraction Chief Complaint SEVERE CONSTIPATION AND JOSE Reason for Visit Constipation Acute kidney injury superimposed on chronic kidney disease Chief Complaint SEVERE CONSTIPATION AND JOSE SEVERE CONSTIPATION AND JOSE SEVERE CONSTIPATION AND JOSE Reason for Visit Constipation Dyspnea on minimal exertion Fecal impaction in rectum Acute kidney injury superimposed on chronic kidney disease Chief Complaint Admit Date RIGHT TOTAL ARTHROPLASTY. RX WITH GREGORIA Keller April 28, 2024 2:00pm AMS, HYPOTENSION May 01, 2024 2 :38pm EKG May 02, 2024 1 :13am AMS, HYPOTENSION May 02, 2024 7 :06am AMS, HYPOTENSION May 02, 2024 9 :34am AMS, HYPOTENSION May 03, 2024 7 :11am AMS, HYPOTENSION May 03, 2024 7 :38am AMS, HYPOTENSION May 04, 2024 7 :37am AMS, HYPOTENSION May 04, 2024 7 :45am STATUS EPILEPTICUS May 18, 2024 7:11pm STATUS EPILEPTICUS May 19, 2024 9:34am STATUS EPILEPTICUS May 20, 2024 11:27am STATUS EPILEPTICUS May 23, 2024 8:27am STATUS EPILEPTICUS May 26, 2024 10:30am STATUS EPILEPTICUS May 27, 2024 11:56am STATUS EPILEPTICUS May 30, 2024 8:41am STATUS EPILEPTICUS May 31, 2024 7:21am STATUS EPILEPTICUS June 02, 2024 8:43am STATUS EPILEPTICUS June 06, 2024 10:2 7am STATUS EPILEPTICUS June 07, 2024 9:17 am Amb Documentation June 07, 2024 11:4 8am STATUS EPILEPTICUS June 09, 2024 4:40 pm STATUS EPILEPTICUS June 10, 2024 10:3 7am LABWORK June 13, 2024 5:0 0am LABWORK June 20, 2024 5:0 0am LABWORK June 27, 2024 5:0 0am LAB WORK July 04, 2024 5:0 0am Reason for Visit Admit Date Anemia in chronic illness May 01, 2024 2:38pm Acute hyperkalemia May 01, 2024 2 :38pm Metabolic acidosis May 01, 2024 2 :38pm Septic shock May 01, 2024 2 :38pm Complicated urinary tract infection Tevin stroud 2024 2:38pm Obstructive sleep apnea May 01 2:38pm Osteoporosis May 01, 2024 2 :38pm Acute renal failure May 01, 2024 2 :38pm Shock May 01, 2024 2 :38pm Chronic renal failure (CRF), stage 4 (se nils) May 18, 2024 7:11pm Debility May 18, 2024 7:11pm Dysphagia May 18, 2024 7:11pm Generalized weakness May 18, 2024 7:11pm Heme + stool May 18, 2024 7:11pm Hyperphosphatemia May 18, 2024 7:11pm Left wrist pain May 18, 2024 7:11pm Acute on chronic anemia May 18, 025 7:11pm Seizure disorder May 18, 2024 7:11pm Acute hyperkalemia May 18, 2024 7:11pm Acute on chronic back pain May 7:11pm Acute renal failure superimp osed on stage 3b chronic kidney disease May 18, 2024 7:11pm Acute respiratory failure with hypoxemia May 18, 2024 7:11pm Bradycardia May 18, 2024 7:11pm Encephalopathy May 18, 2024 7:11pm Fecal incontinence May 18, 2024 7:11pm Metabolic acidosis May 18, 2024 7:11pm Pyelonephritis due to Escherichia coli F ebruary 2024 7:11pm Septic shock May 18, 2024 7:11pm Status epilepticus May 18, 2024 7:11pm (HFpEF) heart failure with preserved eje ction fraction May 18, 2024 7:11pm Osteopenia May 18, 2024 7:11pm Spinal osteophytosis May 18, 2024 7:11pm Urinary incontinence May 18, 2024 7:11pm Chronic kidney disease May 18 7:11pm Chief Complaint Admit Date RIGHT TOTAL ARTHROPLASTY. RX WITH GREGORIA Keller April 28, 2024 2:00pm AMS, HYPOTENSION May 01, 2024 2 :38pm EKG May 02, 2024 1 :13am AMS, HYPOTENSION May 02, 2024 7 :06am AMS, HYPOTENSION May 02, 2024 9 :34am AMS, HYPOTENSION May 03, 2024 7 :11am AMS, HYPOTENSION May 03, 2024 7 :38am AMS, HYPOTENSION May 04, 2024 7 :37am AMS, HYPOTENSION May 04, 2024 7 :45am STATUS EPILEPTICUS May 18, 2024 7:11pm STATUS EPILEPTICUS May 19, 2024 9:34am STATUS EPILEPTICUS May 20, 2024 11:27am STATUS EPILEPTICUS May 23, 2024 8:27am STATUS EPILEPTICUS May 26, 2024 10:30am STATUS EPILEPTICUS May 27, 2024 11:56am STATUS EPILEPTICUS May 30, 2024 8:41am STATUS EPILEPTICUS May 31, 2024 7:21am STATUS EPILEPTICUS June 02, 2024 8:43am STATUS EPILEPTICUS June 06, 2024 10:2 7am STATUS EPILEPTICUS June 07, 2024 9:17 am Amb Documentation June 07, 2024 11:4 8am STATUS EPILEPTICUS June 09, 2024 4:40 pm STATUS EPILEPTICUS June 10, 2024 10:3 7am LABWORK June 13, 2024 5:0 0am ADMISSION EXAM June 13, 2024 6:3 4pm ADMISSION EXAM June 14, 2024 1:2 3pm LABWORK June 20, 2024 5:0 0am NEW CONCERN June 22, 2024 6:4 6pm LABWORK June 27, 2024 5:0 0am LAB WORK July 04, 2024 5:0 0am LAB WORK July 11, 2024 4:00 am LABWORK July 18, 2024 5:0 0am wound July 29, 2024 2:5 1pm Chief Complaint Admit Date STATUS EPILEPTICUS May 18, 2024 7:11pm STATUS EPILEPTICUS May 19, 2024 9:34am STATUS EPILEPTICUS May 20, 2024 11:27am STATUS EPILEPTICUS May 23, 2024 8:27am STATUS EPILEPTICUS May 26, 2024 10:30am STATUS EPILEPTICUS May 27, 2024 11:56am STATUS EPILEPTICUS May 30, 2024 8:41am STATUS EPILEPTICUS May 31, 2024 7:21am STATUS EPILEPTICUS June 02, 2024 8:43am STATUS EPILEPTICUS June 06, 2024 10:2 7am STATUS EPILEPTICUS June 07, 2024 9:17 am Amb Documentation June 07, 2024 11:4 8am STATUS EPILEPTICUS June 09, 2024 4:40 pm STATUS EPILEPTICUS June 10, 2024 10:3 7am LABWORK June 13, 2024 5:0 0am ADMISSION EXAM June 13, 2024 6:3 4pm ADMISSION EXAM June 14, 2024 1:2 3pm LABWORK June 20, 2024 5:0 0am NEW CONCERN June 22, 2024 6:4 6pm LABWORK June 27, 2024 5:0 0am LAB WORK July 04, 2024 5:0 0am LAB WORK July 11, 2024 4:00 am LABWORK July 18, 2024 5:0 0am LABWORK July 25, 2024 5:0 0am wound July 29, 2024 2:5 1pm LAB WORK August 01, 2024 4:0 0am LABWORK August 08, 2024 5:00am HEMATOMA August 12, 2024 1:02pm RLE- DR LOMAX REFERRED August 15, 2024 8: 41am LABWORK August 16, 2024 5:00a m LABWORK August 18, 2024 5:00a m RLE- DR LOMAX REFERRED August 22, 2024 11 :46am RLE- DR LOMAX REFERRED September 01, 2024 2: 45pm RLE- DR LOMAX REFERRED September 01, 2024 3: 12pm Reason for Visit Admit Date Chronic renal failure (CRF), stage 4 (se nils) May 18, 2024 7:11pm Debility May 18, 2024 7:11pm Dysphagia May 18, 2024 7:11pm Generalized weakness May 18, 2024 7:11pm Heme + stool May 18, 2024 7:11pm Hyperphosphatemia May 18, 2024 7:11pm Left wrist pain May 18, 2024 7:11pm Acute on chronic anemia May 18, 025 7:11pm Seizure disorder May 18, 2024 7:11pm Acute hyperkalemia May 18, 2024 7:11pm Acute on chronic back pain May 7:11pm Acute renal failure superimp osed on stage 3b chronic kidney disease May 18, 2024 7:11pm Acute respiratory failure with hypoxemia May 18, 2024 7:11pm Bradycardia May 18, 2024 7:11pm Encephalopathy May 18, 2024 7:11pm Fecal incontinence May 18, 2024 7:11pm Metabolic acidosis May 18, 2024 7:11pm Pyelonephritis due to Escherichia coli F ebruary 2024 7:11pm Septic shock May 18, 2024 7:11pm Status epilepticus May 18, 2024 7:11pm (HFpEF) heart failure with preserved eje ction fraction May 18, 2024 7:11pm Osteopenia May 18, 2024 7:11pm Spinal osteophytosis May 18, 2024 7:11pm Urinary incontinence May 18, 2024 7:11pm Chronic kidney disease May 18 7:11pm Hematoma of right lower leg August 12 1:02pm Wound of right lower extremity August 12, 2024 1:02pm Wound of right lower extremity September 01, 2024 2:45pm Chief Complaint Admit Date STATUS EPILEPTICUS May 18, 2024 7:11pm STATUS EPILEPTICUS May 19, 2024 9:34am STATUS EPILEPTICUS May 20, 2024 11:27am STATUS EPILEPTICUS May 23, 2024 8:27am STATUS EPILEPTICUS May 26, 2024 10:30am STATUS EPILEPTICUS May 27, 2024 11:56am STATUS EPILEPTICUS May 30, 2024 8:41am STATUS EPILEPTICUS May 31, 2024 7:21am STATUS EPILEPTICUS June 02, 2024 8:43am STATUS EPILEPTICUS June 06, 2024 10:2 7am STATUS EPILEPTICUS June 07, 2024 9:17 am Amb Documentation June 07, 2024 11:4 8am STATUS EPILEPTICUS June 09, 2024 4:40 pm STATUS EPILEPTICUS June 10, 2024 10:3 7am LABWORK June 13, 2024 5:0 0am ADMISSION EXAM June 13, 2024 6:3 4pm ADMISSION EXAM June 14, 2024 1:2 3pm LABWORK June 20, 2024 5:0 0am NEW CONCERN June 22, 2024 6:4 6pm LABWORK June 27, 2024 5:0 0am LAB WORK July 04, 2024 5:0 0am LAB WORK July 11, 2024 4:00 am LABWORK July 18, 2024 5:0 0am LABWORK July 25, 2024 5:0 0am wound July 29, 2024 2:5 1pm LAB WORK August 01, 2024 4:0 0am LABWORK August 08, 2024 5:00am HEMATOMA August 12, 2024 1:02pm RLE- DR LOMAX REFERRED August 15, 2024 8: 41am LABWORK August 16, 2024 5:00a m LABWORK August 18, 2024 5:00a m RLE- DR LOMAX REFERRED August 22, 2024 11 :46am RLEMarco LOMAX REFERRED September 01, 2024 2: 45pm RLEMarco LOMAX REFERRED September 01, 2024 3: 12pm Seizure September 05, 2024 8:38a m Reason for Visit Admit Date Chronic renal failure (CRF), stage 4 (se nils) May 18, 2024 7:11pm Debility May 18, 2024 7:11pm Dysphagia May 18, 2024 7:11pm Generalized weakness May 18, 2024 7:11pm Heme + stool May 18, 2024 7:11pm Hyperphosphatemia May 18, 2024 7:11pm Left wrist pain May 18, 2024 7:11pm Acute on chronic anemia May 18, 2 025 7:11pm Seizure disorder May 18, 2024 7:11pm Acute hyperkalemia May 18, 2024 7:11pm Acute on chronic back pain May 7:11pm Acute renal failure superimp osed on stage 3b chronic kidney disease May 18, 2024 7:11pm Acute respiratory failure with hypoxemia May 18, 2024 7:11pm Bradycardia May 18, 2024 7:11pm Encephalopathy May 18, 2024 7:11pm Fecal incontinence May 18, 2024 7:11pm Metabolic acidosis May 18, 2024 7:11pm Pyelonephritis due to Escherichia coli F ebruary 2024 7:11pm Septic shock May 18, 2024 7:11pm Status epilepticus May 18, 2024 7:11pm (HFpEF) heart failure with preserved eje ction fraction May 18, 2024 7:11pm Osteopenia May 18, 2024 7:11pm Spinal osteophytosis May 18, 2024 7:11pm Urinary incontinence May 18, 2024 7:11pm Chronic kidney disease May 18 7:11pm Hematoma of right lower leg August 12 1:02pm Wound of right lower extremity August 12, 2024 1:02pm Wound of right lower extremity September 01, 2024 2:45pm Seizure disorder September 05, 2024 8:38a m Chief Complaint Admit Date STATUS EPILEPTICUS May 18, 2024 7:11pm STATUS EPILEPTICUS May 19, 2024 9:34am STATUS EPILEPTICUS May 20, 2024 11:27am STATUS EPILEPTICUS May 23, 2024 8:27am STATUS EPILEPTICUS May 26, 2024 10:30am STATUS EPILEPTICUS May 27, 2024 11:56am STATUS EPILEPTICUS May 30, 2024 8:41am STATUS EPILEPTICUS May 31, 2024 7:21am STATUS EPILEPTICUS June 02, 2024 8:43am STATUS EPILEPTICUS June 06, 2024 10:2 7am STATUS EPILEPTICUS June 07, 2024 9:17 am Amb Documentation June 07, 2024 11:4 8am STATUS EPILEPTICUS June 09, 2024 4:40 pm STATUS EPILEPTICUS June 10, 2024 10:3 7am LABWORK June 13, 2024 5:0 0am ADMISSION EXAM June 13, 2024 6:3 4pm ADMISSION EXAM June 14, 2024 1:2 3pm LABWORK June 20, 2024 5:0 0am NEW CONCERN June 22, 2024 6:4 6pm LABWORK June 27, 2024 5:0 0am LAB WORK July 04, 2024 5:0 0am LAB WORK July 11, 2024 4:00 am LABWORK July 18, 2024 5:0 0am LABWORK July 25, 2024 5:0 0am wound July 29, 2024 2:5 1pm LAB WORK August 01, 2024 4:0 0am LABWORK August 08, 2024 5:00am HEMATOMA August 12, 2024 1:02pm RLE- DR LOMAX REFERRED August 15, 2024 8: 41am LABWORK August 16, 2024 5:00a m LABWORK August 18, 2024 5:00a m LAB WORK August 22, 2024 4:00a m RLE- DR LOMAX REFERRED August 22, 2024 11 :46am RLEMarco LOMAX REFERRED September 01, 2024 2: 45pm RLEMarco LOMAX REFERRED September 01, 2024 3: 12pm Seizure September 05, 2024 8:38a m Debridement of right leg wound, placemen t of skin September 06, 2024 7:22am Debridement of right leg wound, placemen t of skin September 06, 2024 7:34am Reason for Visit Admit Date Chronic renal failure (CRF), stage 4 (se nils) May 18, 2024 7:11pm Debility May 18, 2024 7:11pm Dysphagia May 18, 2024 7:11pm Generalized weakness May 18, 2024 7:11pm Heme + stool May 18, 2024 7:11pm Hyperphosphatemia May 18, 2024 7:11pm Left wrist pain May 18, 2024 7:11pm Acute on chronic anemia May 18, 2 025 7:11pm Acute hyperkalemia May 18, 2024 7:11pm Acute on chronic back pain May 7:11pm Acute renal failure superimp osed on stage 3b chronic kidney disease May 18, 2024 7:11pm Acute respiratory failure with hypoxemia May 18, 2024 7:11pm Bradycardia May 18, 2024 7:11pm Encephalopathy May 18, 2024 7:11pm Fecal incontinence May 18, 2024 7:11pm Metabolic acidosis May 18, 2024 7:11pm Pyelonephritis due to Escherichia coli F ebruary 2024 7:11pm Seizure disorder May 18, 2024 7:11pm Septic shock May 18, 2024 7:11pm Status epilepticus May 18, 2024 7:11pm (HFpEF) heart failure with preserved eje ction fraction May 18, 2024 7:11pm Osteopenia May 18, 2024 7:11pm Spinal osteophytosis May 18, 2024 7:11pm Urinary incontinence May 18, 2024 7:11pm Chronic kidney disease May 18 7:11pm Hematoma of right lower leg August 12 1:02pm Wound of right lower extremity August 12, 2024 1:02pm Wound of right lower extremity September 01, 2024 2:45pm Seizure disorder September 05, 2024 8:38a m Wound of right lower extremity September 06, 2024 7:22am Chief Complaint Admit Date STATUS EPILEPTICUS May 18, 2024 7:11pm STATUS EPILEPTICUS May 31, 2024 7:21am STATUS EPILEPTICUS June 02, 2024 8:43am STATUS EPILEPTICUS June 06, 2024 10:2 7am STATUS EPILEPTICUS June 07, 2024 9:17 am Amb Documentation June 07, 2024 11:4 8am STATUS EPILEPTICUS June 09, 2024 4:40 pm STATUS EPILEPTICUS June 10, 2024 10:3 7am LABWORK June 13, 2024 5:0 0am ADMISSION EXAM June 13, 2024 6:3 4pm ADMISSION EXAM June 14, 2024 1:2 3pm LABWORK June 20, 2024 5:0 0am NEW CONCERN June 22, 2024 6:4 6pm LABWORK June 27, 2024 5:0 0am LAB WORK July 04, 2024 5:0 0am LAB WORK July 11, 2024 4:00 am LABWORK July 18, 2024 5:0 0am NEW CONCERN July 20, 2024 5:4 2pm LABWORK July 25, 2024 5:0 0am wound July 29, 2024 2:5 1pm LAB WORK August 01, 2024 4:0 0am LABWORK August 08, 2024 5:00am HEMATOMA August 12, 2024 1:02pm RLE- DR LOMAX REFERRED August 15, 2024 8: 41am LABWORK August 16, 2024 5:00a m LABWORK August 18, 2024 5:00a m LAB WORK August 22, 2024 4:00a m RLGabe LOMAX REFERRED August 22, 2024 11 :46am RLGabe LOMAX REFERRED September 01, 2024 2: 45pm RLGabe LOMAX REFERRED September 01, 2024 3: 12pm Seizure September 05, 2024 8:38a m Debridement of right leg wound, placemen t of skin September 06, 2024 7:22am Debridement of right leg wound, placemen t of skin September 06, 2024 7:34am RLGabe LOMAX REFERRED September 12, 2024 2: 16pm RLGabe LOMAX REFERRED September 19, 2024 2 :00pm MARCOS LOMAX REFERRED September 20, 2024 9 :02am Reason for Visit Admit Date Chronic renal failure (CRF), stage 4 (se nils) May 18, 2024 7:11pm Debility May 18, 2024 7:11pm Dysphagia May 18, 2024 7:11pm Generalized weakness May 18, 2024 7:11pm Heme + stool May 18, 2024 7:11pm Hyperphosphatemia May 18, 2024 7:11pm Left wrist pain May 18, 2024 7:11pm Acute on chronic anemia May 18, 025 7:11pm Acute hyperkalemia May 18, 2024 7:11pm Acute on chronic back pain May 7:11pm Acute renal failure superimp osed on stage 3b chronic kidney disease May 18, 2024 7:11pm Acute respiratory failure with hypoxemia May 18, 2024 7:11pm Bradycardia May 18, 2024 7:11pm Encephalopathy May 18, 2024 7:11pm Fecal incontinence May 18, 2024 7:11pm Metabolic acidosis May 18, 2024 7:11pm Pyelonephritis due to Escherichia coli F ebruary 2024 7:11pm Seizure disorder May 18, 2024 7:11pm Septic shock May 18, 2024 7:11pm Status epilepticus May 18, 2024 7:11pm (HFpEF) heart failure with preserved eje ction fraction May 18, 2024 7:11pm Osteopenia May 18, 2024 7:11pm Spinal osteophytosis May 18, 2024 7:11pm Urinary incontinence May 18, 2024 7:11pm Chronic kidney disease May 18 7:11pm Hematoma of right lower leg August 12 1:02pm Wound of right lower extremity August 12, 2024 1:02pm Wound of right lower extremity September 01, 2024 2:45pm Seizure disorder September 05, 2024 8:38a m Wound of right lower extremity September 06, 2024 7:22am S/P flap graft September 19, 2024 2:00 pm Chief Complaint Admit Date STATUS EPILEPTICUS May 18, 2024 7:11pm STATUS EPILEPTICUS May 31, 2024 7:21am STATUS EPILEPTICUS June 02, 2024 8:43am STATUS EPILEPTICUS June 06, 2024 10:2 7am STATUS EPILEPTICUS June 07, 2024 9:17 am Amb Documentation June 07, 2024 11:4 8am STATUS EPILEPTICUS June 09, 2024 4:40 pm STATUS EPILEPTICUS June 10, 2024 10:3 7am LABWORK June 13, 2024 5:0 0am ADMISSION EXAM June 13, 2024 6:3 4pm ADMISSION EXAM June 14, 2024 1:2 3pm LABWORK June 20, 2024 5:0 0am NEW CONCERN June 22, 2024 6:4 6pm LABWORK June 27, 2024 5:0 0am LAB WORK July 04, 2024 5:0 0am LAB WORK July 11, 2024 4:00 am LABWORK July 18, 2024 5:0 0am NEW CONCERN July 20, 2024 5:4 2pm LABWORK July 25, 2024 5:0 0am wound July 29, 2024 2:5 1pm LAB WORK August 01, 2024 4:0 0am LABWORK August 08, 2024 5:00am HEMATOMA August 12, 2024 1:02pm RLE- DR LOMAX REFERRED August 15, 2024 8: 41am LABWORK August 16, 2024 5:00a m LABWORK August 18, 2024 5:00a m LAB WORK August 22, 2024 4:00a m RLE- DR LOMAX REFERRED August 22, 2024 11 :46am RLE- DR LOMAX REFERRED September 01, 2024 2: 45pm RLE- DR LOMAX REFERRED September 01, 2024 3: 12pm Seizure September 05, 2024 8:38a m Debridement of right leg wound, placemen t of skin September 06, 2024 7:22am Debridement of right leg wound, placemen t of skin September 06, 2024 7:34am RLE- DR LOMAX REFERRED September 12, 2024 2: 16pm RLE- DR LOMAX REFERRED September 19, 2024 2 :00pm RLE- DR LOMAX REFERRED September 20, 2024 9 :02am ENCEPHALOPATHY, JOSE ON CKD, HYPERKALEMIA September 28, 2024 8:00pm Reason for Visit Admit Date Chronic renal failure (CRF), stage 4 (se nils) May 18, 2024 7:11pm Debility May 18, 2024 7:11pm Dysphagia May 18, 2024 7:11pm Generalized weakness May 18, 2024 7:11pm Heme + stool May 18, 2024 7:11pm Hyperphosphatemia May 18, 2024 7:11pm Left wrist pain May 18, 2024 7:11pm Acute on chronic anemia May 18, 025 7:11pm Acute hyperkalemia May 18, 2024 7:11pm Acute on chronic back pain May 7:11pm Acute renal failure superimp osed on stage 3b chronic kidney disease May 18, 2024 7:11pm Acute respiratory failure with hypoxemia May 18, 2024 7:11pm Bradycardia May 18, 2024 7:11pm Encephalopathy May 18, 2024 7:11pm Fecal incontinence May 18, 2024 7:11pm Metabolic acidosis May 18, 2024 7:11pm Pyelonephritis due to Escherichia coli F ebruary 2024 7:11pm Seizure disorder May 18, 2024 7:11pm Septic shock May 18, 2024 7:11pm Status epilepticus May 18, 2024 7:11pm (HFpEF) heart failure with preserved eje ction fraction May 18, 2024 7:11pm Osteopenia May 18, 2024 7:11pm Spinal osteophytosis May 18, 2024 7:11pm Urinary incontinence May 18, 2024 7:11pm Chronic kidney disease May 18 7:11pm Hematoma of right lower leg August 12 1:02pm Wound of right lower extremity August 12, 2024 1:02pm Wound of right lower extremity September 01, 2024 2:45pm Seizure disorder September 05, 2024 8:38a m Wound of right lower extremity September 06, 2024 7:22am S/P flap graft September 19, 2024 2:00 pm JOSE (acute kidney injury) September 28 8:00pm Health Concerns Infection Onset Date Last Indicated [...] dose, On Thu07/30/22 at 0800 Given by [facility] 07/30/2022 2:18 PM EDT 100 mg Inactive Administered Medications - up to 3 most recent administrations Medication Order MAR Action Action Date Dose Rate Site lidocaine (PF) 10 mg/mL (1 %) 100 mg injection (XYLOCAINE) 100 mg, OTHER, ONCE, 1 dose, On Thu08/13/22 at 1430 Given by [facility] 08/13/2022 2:54 PM EDT 100 mg Inactive Administered Medications - up to 3 most recent administrations Medication Order MAR Action Action Date Dose Rate Site iohexol 300 mg IV injection (OMNIPAQUE 300) 300 mg, OTHER, ONCE, 1 dose, On Thu02/16/23 at 1100 Given by [facility] 02/16/2023 11:51 AM EST 300 mg lidocaine (PF) 10 mg/mL (1 %) 100 mg injection (XYLOCAINE) 100 mg, OTHER, ONCE, 1 dose, On Thu02/16/23 at 1100 Given by [facility] 02/16/2023 11:50 AM EST 100 mg lidocaine (PF) 20 mg/mL (2 %) 200 mg injection (XYLOCAINE) 200 mg, OTHER, ONCE, 1 dose, On Thu02/16/23 at 1100 Given by [facility] 02/16/2023 11:51 AM EST 200 mg methylPREDNISolone acetate 40 mg injection (DEPO-Medrol) 40 mg, OTHER, ONCE, 1 dose, On Thu02/16/23 at 1100 Given by [facility] 02/16/2023 11:52 AM EST 80 mg Summary Purpose Family History No Family History Records Found Additional Source Comments Source Comments (unrecognize d section and content) In the event this informatio n is protected by the Federal Confidentiality of Alcohol and Drug Abuse Patient Records regulations: The Federal rules restrict any use of the information to criminally investigate or prosecute any alcohol or drug abuse patient.[facility] RehabilitationIn the event this information is protected by the Federal Confidentiality of Alcohol and Drug Abuse Patient Records regulations: The Federal rules restrict any use of the information to criminally investigate or prosecute any alcohol or drug abuse patient.[facility] RehabilitationIn the event this information is protected by the Federal Confidentiality of Alcohol and Drug Abuse Patient Records regulations: The Federal rules restrict any use of the information to criminally investigate or prosecute any alcohol or drug abuse patient.[facility] RehabilitationIn the event this information is protected by the Federal Confidentiality of Alcohol and Drug Abuse Patient Records regulations: The Federal rules restrict any use of the information to criminally investigate or prosecute any alcohol or drug abuse patient.[facility] RehabilitationIn the event this information is protected by the Federal Confidentiality of Alcohol and Drug Abuse Patient Records regulations: The Federal rules restrict any use of the information to criminally investigate or prosecute any alcohol or drug abuse patient.[facility] RehabilitationIn the event this information is protected by the Federal Confidentiality of Alcohol and Drug Abuse Patient Records regulations: The Federal rules restrict any use of the information to criminally investigate or prosecute any alcohol or drug abuse patient.[facility] RehabilitationIn the event this information is protected by the Federal Confidentiality of Alcohol and Drug Abuse Patient Records regulations: The Federal rules restrict any use of the information to criminally investigate or prosecute any alcohol or drug abuse patient.[facility] RehabilitationIn the event this information is protected by the Federal Confidentiality of Alcohol and Drug Abuse Patient Records regulations: The Federal rules restrict any use of the information to criminally investigate or prosecute any alcohol or drug abuse patient.[facility] RehabilitationIn the event this information is protected by the Federal Confidentiality of Alcohol and Drug Abuse Patient Records regulations: The Federal rules restrict any use of the information to criminally investigate or prosecute any alcohol or drug abuse patient.[facility] RehabilitationIn the event this information is protected by the Federal Confidentiality of Alcohol and Drug Abuse Patient Records regulations: The Federal rules restrict any use of the information to criminally investigate or prosecute any alcohol or drug abuse patient.[facility] RehabilitationIn the event this information is protected by the Federal Confidentiality of Alcohol and Drug Abuse Patient Records regulations: The Federal rules restrict any use of the information to criminally investigate or prosecute any alcohol or drug abuse patient.[facility] RehabilitationIn the event this information is protected by the Federal Confidentiality of Alcohol and Drug Abuse Patient Records regulations: The Federal rules restrict any use of the information to criminally investigate or prosecute any alcohol or drug abuse patient.[facility] RehabilitationIn the event this information is protected by the Federal Confidentiality of Alcohol and Drug Abuse Patient Records regulations: The Federal rules restrict any use of the information to criminally investigate or prosecute any alcohol or drug abuse patient.[facility] RehabilitationIn the event this information is protected by the Federal Confidentiality of Alcohol and Drug Abuse Patient Records regulations: The Federal rules restrict any use of the information to criminally investigate or prosecute any alcohol or drug abuse patient.[facility] RehabilitationIn the event this information is protected by the Federal Confidentiality of Alcohol and Drug Abuse Patient Records regulations: The Federal rules restrict any use of the information to criminally investigate or prosecute any alcohol or drug abuse patient.[facility] RehabilitationIn the event this information is protected by the Federal Confidentiality of Alcohol and Drug Abuse Patient Records regulations: The Federal rules restrict any use of the information to criminally investigate or prosecute any alcohol or drug abuse patient.[facility] RehabilitationIn the event this information is protected by the Federal Confidentiality of Alcohol and Drug Abuse Patient Records regulations: The Federal rules restrict any use of the information to criminally investigate or prosecute any alcohol or drug abuse patient.[facility] RehabilitationIn the event this information is protected by the Federal Confidentiality of Alcohol and Drug Abuse Patient Records regulations: The Federal rules restrict any use of the information to criminally investigate or prosecute any alcohol or drug abuse patient.[facility] RehabilitationIn the event this information is protected by the Federal Confidentiality of Alcohol and Drug Abuse Patient Records regulations: The Federal rules restrict any use of the information to criminally investigate or prosecute any alcohol or drug abuse patient.[facility] RehabilitationIn the event this information is protected by the Federal Confidentiality of Alcohol and Drug Abuse Patient Records regulations: The Federal rules restrict any use of the information to criminally investigate or prosecute any alcohol or drug abuse patient.[facility] RehabilitationIn the event this information is protected by the Federal Confidentiality of Alcohol and Drug Abuse Patient Records regulations: The Federal rules restrict any use of the information to criminally investigate or prosecute any alcohol or drug abuse patient.[facility] RehabilitationIn the event this information is protected by the Federal Confidentiality of Alcohol and Drug Abuse Patient Records regulations: The Federal rules restrict any use of the information to criminally investigate or prosecute any alcohol or drug abuse patient.[facility] RehabilitationIn the event this information is protected by the Federal Confidentiality of Alcohol and Drug Abuse Patient Records regulations: The Federal rules restrict any use of the information to criminally investigate or prosecute any alcohol or drug abuse patient.[facility] RehabilitationIn the event this information is protected by the Federal Confidentiality of Alcohol and Drug Abuse Patient Records regulations: The Federal rules restrict any use of the information to criminally investigate or prosecute any alcohol or drug abuse patient.[facility] RehabilitationIn the event this information is protected by the Federal Confidentiality of Alcohol and Drug Abuse Patient Records regulations: The Federal rules restrict any use of the information to criminally investigate or prosecute any alcohol or drug abuse patient.[facility] RehabilitationIn the event this information is protected by the Federal Confidentiality of Alcohol and Drug Abuse Patient Records regulations: The Federal rules restrict any use of the information to criminally investigate or prosecute any alcohol or drug abuse patient.[facility] RehabilitationIn the event this information is protected by the Federal Confidentiality of Alcohol and Drug Abuse Patient Records regulations: The Federal rules restrict any use of the information to criminally investigate or prosecute any alcohol or drug abuse patient.[facility] RehabilitationIn the event this information is protected by the Federal Confidentiality of Alcohol and Drug Abuse Patient Records regulations: The Federal rules restrict any use of the information to criminally investigate or prosecute any alcohol or drug abuse patient.[facility] RehabilitationIn the event this information is protected by the Federal Confidentiality of Alcohol and Drug Abuse Patient Records regulations: The Federal rules restrict any use of the information to criminally investigate or prosecute any alcohol or drug abuse patient.[facility] RehabilitationIn the event this information is protected by the Federal Confidentiality of Alcohol and Drug Abuse Patient Records regulations: The Federal rules restrict any use of the information to criminally investigate or prosecute any alcohol or drug abuse patient.[facility] RehabilitationIn the event this information is protected by the Federal Confidentiality of Alcohol and Drug Abuse Patient Records regulations: The Federal rules restrict any use of the information to criminally investigate or prosecute any alcohol or drug abuse patient.[facility] RehabilitationIn the event this information is protected by the Federal Confidentiality of Alcohol and Drug Abuse Patient Records regulations: The Federal rules restrict any use of the information to criminally investigate or prosecute any alcohol or drug abuse patient.[facility] RehabilitationIn the event this information is protected by the Federal Confidentiality of Alcohol and Drug Abuse Patient Records regulations: The Federal rules restrict any use of the information to criminally investigate or prosecute any alcohol or drug abuse patient.[facility] RehabilitationIn the event this information is protected by the Federal Confidentiality of Alcohol and Drug Abuse Patient Records regulations: The Federal rules restrict any use of the information to criminally investigate or prosecute any alcohol or drug abuse patient.[facility] RehabilitationIn the event this information is protected by the Federal Confidentiality of Alcohol and Drug Abuse Patient Records regulations: The Federal rules restrict any use of the information to criminally investigate or prosecute any alcohol or drug abuse patient.[facility] RehabilitationIn the event this information is protected by the Federal Confidentiality of Alcohol and Drug Abuse Patient Records regulations: The Federal rules restrict any use of the information to criminally investigate or prosecute any alcohol or drug abuse patient.[facility] RehabilitationIn the event this information is protected by the Federal Confidentiality of Alcohol and Drug Abuse Patient Records regulations: The Federal rules restrict any use of the information to criminally investigate or prosecute any alcohol or drug abuse patient.[facility] RehabilitationIn the event this information is protected by the Federal Confidentiality of Alcohol and Drug Abuse Patient Records regulations: The Federal rules restrict any use of the information to criminally investigate or prosecute any alcohol or drug abuse patient.[facility] RehabilitationIn the event this information is protected by the Federal Confidentiality of Alcohol and Drug Abuse Patient Records regulations: The Federal rules restrict any use of the information to criminally investigate or prosecute any alcohol or drug abuse patient.[facility] RehabilitationIn the event this information is protected by the Federal Confidentiality of Alcohol and Drug Abuse Patient Records regulations: The Federal rules restrict any use of the information to criminally investigate or prosecute any alcohol or drug abuse patient.[facility] RehabilitationIn the event this information is protected by the Federal Confidentiality of Alcohol and Drug Abuse Patient Records regulations: The Federal rules restrict any use of the information to criminally investigate or prosecute any alcohol or drug abuse patient.[facility] RehabilitationIn the event this information is protected by the Federal Confidentiality of Alcohol and Drug Abuse Patient Records regulations: The Federal rules restrict any use of the information to criminally investigate or prosecute any alcohol or drug abuse patient.[facility] RehabilitationIn the event this information is protected by the Federal Confidentiality of Alcohol and Drug Abuse Patient Records regulations: The Federal rules restrict any use of the information to criminally investigate or prosecute any alcohol or drug abuse patient.[facility] RehabilitationIn the event this information is protected by the Federal Confidentiality of Alcohol and Drug Abuse Patient Records regulations: The Federal rules restrict any use of the information to criminally investigate or prosecute any alcohol or drug abuse patient.[facility] RehabilitationIn the event this information is protected by the Federal Confidentiality of Alcohol and Drug Abuse Patient Records regulations: The Federal rules restrict any use of the information to criminally investigate or prosecute any alcohol or drug abuse patient.[facility] RehabilitationIn the event this information is protected by the Federal Confidentiality of Alcohol and Drug Abuse Patient Records regulations: The Federal rules restrict any use of the information to criminally investigate or prosecute any alcohol or drug abuse patient.[facility] RehabilitationIn the event this information is protected by the Federal Confidentiality of Alcohol and Drug Abuse Patient Records regulations: The Federal rules restrict any use of the information to criminally investigate or prosecute any alcohol or drug abuse patient.[facility] RehabilitationIn the event this information is protected by the Federal Confidentiality of Alcohol and Drug Abuse Patient Records regulations: The Federal rules restrict any use of the information to criminally investigate or prosecute any alcohol or drug abuse patient.[facility] RehabilitationIn the event this information is protected by the Federal Confidentiality of Alcohol and Drug Abuse Patient Records regulations: The Federal rules restrict any use of the information to criminally investigate or prosecute any alcohol or drug abuse patient.[facility] RehabilitationIn the event this information is protected by the Federal Confidentiality of Alcohol and Drug Abuse Patient Records regulations: The Federal rules restrict any use of the information to criminally investigate or prosecute any alcohol or drug abuse patient.[facility] RehabilitationIn the event this information is protected by the Federal Confidentiality of Alcohol and Drug Abuse Patient Records regulations: The Federal rules restrict any use of the information to criminally investigate or prosecute any alcohol or drug abuse patient.[facility] RehabilitationIn the event this information is protected by the Federal Confidentiality of Alcohol and Drug Abuse Patient Records regulations: The Federal rules restrict any use of the information to criminally investigate or prosecute any alcohol or drug abuse patient.[facility] RehabilitationIn the event this information is protected by the Federal Confidentiality of Alcohol and Drug Abuse Patient Records regulations: The Federal rules restrict any use of the information to criminally investigate or prosecute any alcohol or drug abuse patient.[facility] RehabilitationIn the event this information is protected by the Federal Confidentiality of Alcohol and Drug Abuse Patient Records regulations: The Federal rules restrict any use of the information to criminally investigate or prosecute any alcohol or drug abuse patient.[facility] RehabilitationIn the event this information is protected by the Federal Confidentiality of Alcohol and Drug Abuse Patient Records regulations: The Federal rules restrict any use of the information to criminally investigate or prosecute any alcohol or drug abuse patient.[facility] RehabilitationIn the event this information is protected by the Federal Confidentiality of Alcohol and Drug Abuse Patient Records regulations: The Federal rules restrict any use of the information to criminally investigate or prosecute any alcohol or drug abuse patient.[facility] RehabilitationIn the event this information is protected by the Federal Confidentiality of Alcohol and Drug Abuse Patient Records regulations: The Federal rules restrict any use of the information to criminally investigate or prosecute any alcohol or drug abuse patient.[facility] RehabilitationIn the event this information is protected by the Federal Confidentiality of Alcohol and Drug Abuse Patient Records regulations: The Federal rules restrict any use of the information to criminally investigate or prosecute any alcohol or drug abuse patient.[facility] RehabilitationIn the event this information is protected by the Federal Confidentiality of Alcohol and Drug Abuse Patient Records regulations: The Federal rules restrict any use of the information to criminally investigate or prosecute any alcohol or drug abuse patient.[facility] RehabilitationIn the event this information is protected by the Federal Confidentiality of Alcohol and Drug Abuse Patient Records regulations: The Federal rules restrict any use of the information to criminally investigate or prosecute any alcohol or drug abuse patient.[facility] RehabilitationIn the event this information is protected by the Federal Confidentiality of Alcohol and Drug Abuse Patient Records regulations: The Federal rules restrict any use of the information to criminally investigate or prosecute any alcohol or drug abuse patient.[facility] RehabilitationIn the event this information is protected by the Federal Confidentiality of Alcohol and Drug Abuse Patient Records regulations: The Federal rules restrict any use of the information to criminally investigate or prosecute any alcohol or drug abuse patient.[facility] RehabilitationIn the event this information is protected by the Federal Confidentiality of Alcohol and Drug Abuse Patient Records regulations: The Federal rules restrict any use of the information to criminally investigate or prosecute any alcohol or drug abuse patient.[facility] RehabilitationIn the event this information is protected by the Federal Confidentiality of Alcohol and Drug Abuse Patient Records regulations: The Federal rules restrict any use of the information to criminally investigate or prosecute any alcohol or drug abuse patient.[facility] RehabilitationIn the event this information is protected by the Federal Confidentiality of Alcohol and Drug Abuse Patient Records regulations: The Federal rules restrict any use of the information to criminally investigate or prosecute any alcohol or drug abuse patient.[facility] RehabilitationIn the event this information is protected by the Federal Confidentiality of Alcohol and Drug Abuse Patient Records regulations: The Federal rules restrict any use of the information to criminally investigate or prosecute any alcohol or drug abuse patient.[facility] RehabilitationIn the event this information is protected by the Federal Confidentiality of Alcohol and Drug Abuse Patient Records regulations: The Federal rules restrict any use of the information to criminally investigate or prosecute any alcohol or drug abuse patient.[facility] RehabilitationIn the event this information is protected by the Federal Confidentiality of Alcohol and Drug Abuse Patient Records regulations: The Federal rules restrict any use of the information to criminally investigate or prosecute any alcohol or drug abuse patient.[facility] RehabilitationIn the event this information is protected by the Federal Confidentiality of Alcohol and Drug Abuse Patient Records regulations: The Federal rules restrict any use of the information to criminally investigate or prosecute any alcohol or drug abuse patient.[facility] RehabilitationIn the event this information is protected by the Federal Confidentiality of Alcohol and Drug Abuse Patient Records regulations: The Federal rules restrict any use of the information to criminally investigate or prosecute any alcohol or drug abuse patient.[facility] RehabilitationIn the event this information is protected by the Federal Confidentiality of Alcohol and Drug Abuse Patient Records regulations: The Federal rules restrict any use of the information to criminally investigate or prosecute any alcohol or drug abuse patient.[facility] RehabilitationIn the event this information is protected by the Federal Confidentiality of Alcohol and Drug Abuse Patient Records regulations: The Federal rules restrict any use of the information to criminally investigate or prosecute any alcohol or drug abuse patient.[facility] RehabilitationIn the event this information is protected by the Federal Confidentiality of Alcohol and Drug Abuse Patient Records regulations: The Federal rules restrict any use of the information to criminally investigate or prosecute any alcohol or drug abuse patient.[facility] RehabilitationIn the event this information is protected by the Federal Confidentiality of Alcohol and Drug Abuse Patient Records regulations: The Federal rules restrict any use of the information to criminally investigate or prosecute any alcohol or drug abuse patient.[facility] RehabilitationIn the event this information is protected by the Federal Confidentiality of Alcohol and Drug Abuse Patient Records regulations: The Federal rules restrict any use of the information to criminally investigate or prosecute any alcohol or drug abuse patient.[facility] RehabilitationIn the event this information is protected by the Federal Confidentiality of Alcohol and Drug Abuse Patient Records regulations: The Federal rules restrict any use of the information to criminally investigate or prosecute any alcohol or drug abuse patient.[facility] RehabilitationIn the event this information is protected by the Federal Confidentiality of Alcohol and Drug Abuse Patient Records regulations: The Federal rules restrict any use of the information to criminally investigate or prosecute any alcohol or drug abuse patient.[facility] RehabilitationIn the event this information is protected by the Federal Confidentiality of Alcohol and Drug Abuse Patient Records regulations: The Federal rules restrict any use of the information to criminally investigate or prosecute any alcohol or drug abuse patient.[facility] RehabilitationIn the event this information is protected by the Federal Confidentiality of Alcohol and Drug Abuse Patient Records regulations: The Federal rules restrict any use of the information to criminally investigate or prosecute any alcohol or drug abuse patient.[facility] RehabilitationIn the event this information is protected by the Federal Confidentiality of Alcohol and Drug Abuse Patient Records regulations: The Federal rules restrict any use of the information to criminally investigate or prosecute any alcohol or drug abuse patient.[facility] RehabilitationIn the event this information is protected by the Federal Confidentiality of Alcohol and Drug Abuse Patient Records regulations: The Federal rules restrict any use of the information to criminally investigate or prosecute any alcohol or drug abuse patient.[facility] RehabilitationIn the event this information is protected by the Federal Confidentiality of Alcohol and Drug Abuse Patient Records regulations: The Federal rules restrict any use of the information to criminally investigate or prosecute any alcohol or drug abuse patient.[facility] RehabilitationIn the event this information is protected by the Federal Confidentiality of Alcohol and Drug Abuse Patient Records regulations: The Federal rules restrict any use of the information to criminally investigate or prosecute any alcohol or drug abuse patient.[facility] RehabilitationIn the event this information is protected by the Federal Confidentiality of Alcohol and Drug Abuse Patient Records regulations: The Federal rules restrict any use of the information to criminally investigate or prosecute any alcohol or drug abuse patient.[facility] RehabilitationIn the event this information is protected by the Federal Confidentiality of Alcohol and Drug Abuse Patient Records regulations: The Federal rules restrict any use of the information to criminally investigate or prosecute any alcohol or drug abuse patient.[facility] RehabilitationIn the event this information is protected by the Federal Confidentiality of Alcohol and Drug Abuse Patient Records regulations: The Federal rules restrict any use of the information to criminally investigate or prosecute any alcohol or drug abuse patient.[facility] RehabilitationIn the event this information is protected by the Federal Confidentiality of Alcohol and Drug Abuse Patient Records regulations: The Federal rules restrict any use of the information to criminally investigate or prosecute any alcohol or drug abuse patient.[facility] RehabilitationIn the event this information is protected by the Federal Confidentiality of Alcohol and Drug Abuse Patient Records regulations: The Federal rules restrict any use of the information to criminally investigate or prosecute any alcohol or drug abuse patient.[facility] RehabilitationIn the event this information is protected by the Federal Confidentiality of Alcohol and Drug Abuse Patient Records regulations: The Federal rules restrict any use of the information to criminally investigate or prosecute any alcohol or drug abuse patient.[facility] RehabilitationIn the event this information is protected by the Federal Confidentiality of Alcohol and Drug Abuse Patient Records regulations: The Federal rules restrict any use of the information to criminally investigate or prosecute any alcohol or drug abuse patient.[facility] RehabilitationIn the event this information is protected by the Federal Confidentiality of Alcohol and Drug Abuse Patient Records regulations: The Federal rules restrict any use of the information to criminally investigate or prosecute any alcohol or drug abuse patient.[facility] RehabilitationIn the event this information is protected by the Federal Confidentiality of Alcohol and Drug Abuse Patient Records regulations: The Federal rules restrict any use of the information to criminally investigate or prosecute any alcohol or drug abuse patient.[facility] RehabilitationIn the event this information is protected by the Federal Confidentiality of Alcohol and Drug Abuse Patient Records regulations: The Federal rules restrict any use of the information to criminally investigate or prosecute any alcohol or drug abuse patient.[facility] RehabilitationIn the event this information is protected by the Federal Confidentiality of Alcohol and Drug Abuse Patient Records regulations: The Federal rules restrict any use of the information to criminally investigate or prosecute any alcohol or drug abuse patient.[facility] RehabilitationIn the event this information is protected by the Federal Confidentiality of Alcohol and Drug Abuse Patient Records regulations: The Federal rules restrict any use of the information to criminally investigate or prosecute any alcohol or drug abuse patient.[facility] RehabilitationIn the event this information is protected by the Federal Confidentiality of Alcohol and Drug Abuse Patient Records regulations: The Federal rules restrict any use of the information to criminally investigate or prosecute any alcohol or drug abuse patient.[facility] RehabilitationIn the event this information is protected by the Federal Confidentiality of Alcohol and Drug Abuse Patient Records regulations: The Federal rules restrict any use of the information to criminally investigate or prosecute any alcohol or drug abuse patient.[facility] RehabilitationIn the event this information is protected by the Federal Confidentiality of Alcohol and Drug Abuse Patient Records regulations: The Federal rules restrict any use of the information to criminally investigate or prosecute any alcohol or drug abuse patient.[facility] RehabilitationIn the event this information is protected by the Federal Confidentiality of Alcohol and Drug Abuse Patient Records regulations: The Federal rules restrict any use of the information to criminally investigate or prosecute any alcohol or drug abuse patient.[facility] RehabilitationIn the event this information is protected by the Federal Confidentiality of Alcohol and Drug Abuse Patient Records regulations: The Federal rules restrict any use of the information to criminally investigate or prosecute any alcohol or drug abuse patient.[facility] RehabilitationIn the event this information is protected by the Federal Confidentiality of Alcohol and Drug Abuse Patient Records regulations: The Federal rules restrict any use of the information to criminally investigate or prosecute any alcohol or drug abuse patient.[facility] RehabilitationIn the event this information is protected by the Federal Confidentiality of Alcohol and Drug Abuse Patient Records regulations: The Federal rules restrict any use of the information to criminally investigate or prosecute any alcohol or drug abuse patient.[facility] RehabilitationIn the event this information is protected by the Federal Confidentiality of Alcohol and Drug Abuse Patient Records regulations: The Federal rules restrict any use of the information to criminally investigate or prosecute any alcohol or drug abuse patient.[facility] RehabilitationIn the event this information is protected by the Federal Confidentiality of Alcohol and Drug Abuse Patient Records regulations: The Federal rules restrict any use of the information to criminally investigate or prosecute any alcohol or drug abuse patient.[facility] RehabilitationIn the event this information is protected by the Federal Confidentiality of Alcohol and Drug Abuse Patient Records regulations: The Federal rules restrict any use of the information to criminally investigate or prosecute any alcohol or drug abuse patient.[facility] RehabilitationIn the event this information is protected by the Federal Confidentiality of Alcohol and Drug Abuse Patient Records regulations: The Federal rules restrict any use of the information to criminally investigate or prosecute any alcohol or drug abuse patient.[facility] RehabilitationIn the event this information is protected by the Federal Confidentiality of Alcohol and Drug Abuse Patient Records regulations: The Federal rules restrict any use of the information to criminally investigate or prosecute any alcohol or drug abuse patient.[facility] RehabilitationIn the event this information is protected by the Federal Confidentiality of Alcohol and Drug Abuse Patient Records regulations: The Federal rules restrict any use of the information to criminally investigate or prosecute any alcohol or drug abuse patient.[facility] RehabilitationIn the event this information is protected by the Federal Confidentiality of Alcohol and Drug Abuse Patient Records regulations: The Federal rules restrict any use of the information to criminally investigate or prosecute any alcohol or drug abuse patient.[facility] RehabilitationIn the event this information is protected by the Federal Confidentiality of Alcohol and Drug Abuse Patient Records regulations: The Federal rules restrict any use of the information to criminally investigate or prosecute any alcohol or drug abuse patient.[facility] RehabilitationIn the event this information is protected by the Federal Confidentiality of Alcohol and Drug Abuse Patient Records regulations: The Federal rules restrict any use of the information to criminally investigate or prosecute any alcohol or drug abuse patient.[facility] RehabilitationIn the event this information is protected by the Federal Confidentiality of Alcohol and Drug Abuse Patient Records regulations: The Federal rules restrict any use of the information to criminally investigate or prosecute any alcohol or drug abuse patient.[facility] RehabilitationIn the event this information is protected by the Federal Confidentiality of Alcohol and Drug Abuse Patient Records regulations: The Federal rules restrict any use of the information to criminally investigate or prosecute any alcohol or drug abuse patient.[facility] RehabilitationIn the event this information is protected by the Federal Confidentiality of Alcohol and Drug Abuse Patient Records regulations: The Federal rules restrict any use of the information to criminally investigate or prosecute any alcohol or drug abuse patient.[facility] RehabilitationIn the event this information is protected by the Federal Confidentiality of Alcohol and Drug Abuse Patient Records regulations: The Federal rules restrict any use of the information to criminally investigate or prosecute any alcohol or drug abuse patient.[facility] RehabilitationIn the event this information is protected by the Federal Confidentiality of Alcohol and Drug Abuse Patient Records regulations: The Federal rules restrict any use of the information to criminally investigate or prosecute any alcohol or drug abuse patient.[facility] RehabilitationIn the event this information is protected by the Federal Confidentiality of Alcohol and Drug Abuse Patient Records regulations: The Federal rules restrict any use of the information to criminally investigate or prosecute any alcohol or drug abuse patient.[facility] RehabilitationIn the event this information is protected by the Federal Confidentiality of Alcohol and Drug Abuse Patient Records regulations: The Federal rules restrict any use of the information to criminally investigate or prosecute any alcohol or drug abuse patient.[facility] RehabilitationIn the event this information is protected by the Federal Confidentiality of Alcohol and Drug Abuse Patient Records regulations: The Federal rules restrict any use of the information to criminally investigate or prosecute any alcohol or drug abuse patient.[facility] RehabilitationIn the event this information is protected by the Federal Confidentiality of Alcohol and Drug Abuse Patient Records regulations: The Federal rules restrict any use of the information to criminally investigate or prosecute any alcohol or drug abuse patient.[facility] Reason for Visit (unrecogniz ed section and content) Reason Comments Procedure Specialty Diagnoses / Procedures Referred By Contac t Referred To Contact Pain Management / PAIN MANAGEMENT Diagnoses Primary osteoarthritis, right shoulder Primary osteoarthritis, left shoulder Suprascapular Nerve Block with steroid infiltration under ultrasound guidance LEFT-SIDED, 81mg apsrin Procedures INJECTION AA&/STRD SUPRASCAPULAR NERVE PROCEDURE 20 Roque Delgado MD [address] [address] Roque Delgado MD [address] [address] Referral ID Status Reason Start Date Expiration Date Visits Re quested Visits Authorized [id number] Closed 04/06/2023 04/05/2024 1 1 Reason Comments Physical Therapy Specialty Diagnoses / Procedures Referred By Contac t Referred To Contact Physical Therapy / PHYSICAL THERAPY Diagnoses Lumbar spondylosis Thoracic spine pain Myofascial pain Procedures CONSULT TO PHYSICAL THERAPY Avis Marrufo M, MARKET MANAGER.[facility] [address] [place] [address] Pt [facility] [place] [address] Referral ID Status Reason Start Date Expiration Date V isits Requested Visits Authorized [id number] Authorized 04/06/2021 04/05/2022 99 99 Reason Comments PT Eval Reason Comments PT Discharge Reason Comments Recheck Reason Comments Results Reason Comments Radiology CT Specialty Diagnoses / Procedures Referred By Contac t Referred To Contact CT IMAGING Diagnoses Left upper quadrant abdominal pain Procedures CT ABD/PEL WO IVCON CT ABD & PELVIS W/O CONTRAST Lizy Capone MD [address] [place] [address] Ct Imaging Referral ID Status Reason Start Date Expiration Date V isits Requested Visits Authorized [id number] Closed Auto-Generate d Referral 07/18/2021 08/17/2022 1 [...] ADDITIONAL VERTEBRA [address] [place] [address] Referral ID Status Reason Start Date Expiration Date Visits Re quested Visits Authorized [id number] 1 1 Reason Comments Follow Up Reason Comments Acute Visit bilat leg swelling Reason Comments Faxed Referral Referral ID Status Reason Start Date Expiration Date Visits Re quested Visits Authorized [id number] 1 1 Reason Comments Results Labs Reason [...] OFFICE/OUTPATIENT NEW HIGH MDM 60-74 MINUTES Miryam Orozco APRN.[facility] [address] [place] [address] Referral ID Status Reason Start Date Expiration Date V isits Requested Visits Authorized [id number] Closed PCP Requested Referral 04/21/2022 04/21/2023 1 [...] SPINAL CANAL LUMBAR W/O CONTRAST MATERIAL Avis Marrufo M, MARKET MANAGER.DIGITAL DATA ANALYST [address] [place] [address] [facility] [place] [address] Referral ID Status Reason Start Date Expiration Date V isits Requested Visits Authorized [id number] Closed Auto-Generate d Referral 04/03/2022 05/03/2023 1 [...] MAJOR JT/BURSA W/O US PROCEDURE 20 Roque Delgado MD [address] [address] Roque Delgado MD [address] [address] Referral ID Status Reason Start Date Expiration Date Visits Re quested Visits Authorized [id number] Closed 02/16/2023 05/17/2023 1 1 Reason Comments Follow Up Bilateral GHJ USI Reason Comments Follow-up Shoulder Pain Follow Up Left suprascapular n erve block Reason Onset Date Comments Refill Request 06/29/2023 Reason Comments Procedure rfa Pain (Shoulder Pain) left Specialty Diagnoses / Procedures Referred By Contac t Referred To Contact Pain Management / PAIN MANAGEMENT Diagnoses Primary osteoarthritis, right shoulder Primary osteoarthritis, left shoulder Left shoulder RFA under fluro Procedures DSTRJ NEUROLYTIC AGENT OTHER PERIPHERAL NERVE PROCEDURE 20 Benjamin Rebekahmuna Pradhan, MARKET MANAGER.DIGITAL DATA ANALYST [address] [place] [address] Roque Delgado MD [address] [address] Referral ID Status Reason Start Date Expiration Date V isits Requested Visits Authorized [id number] Pending Review 07/15/2023 10/13/2023 1 1 Reason Comments Returning Patient's Call Reason Onset Date Comments Refill Request 09/21/2023 Reason Onset Date Comments Refill Request 09/28/2023 Reason Comments Procedure Pain (Shoulder Pain) RFA Right suprascap ular Specialty Diagnoses / Procedures Referred By Contyumiko t Referred To Contact Pain Management / PAIN MANAGEMENT Diagnoses Primary osteoarthritis, right shoulder Right RFA - suprascapular nerve w fluoro; 81mg asp Procedures INJECTION AA&/STRD SUPRASCAPULAR NERVE PROCEDURE 30 Thole, RYAN Ridley [address] [address] Roque Delgado MD [address] [address] Referral ID Status Reason Start Date Expiration Date V isits Requested Visits Authorized [id number] New Request 11/16/2023 02/14/2024 1 1 Reason Comments Discussion Reason Comments Follow Up RFA - no relief at a ll Pain (Shoulder Pain) Bilateral - right i s worse Knee Pain Bilateral - left is worse Reason Comments 6 Month Exam Reason Comments medical clearance form [facility] fo r shoulder surgery Reason Onset Date Comments Refill Request 03/07/2024 Reason Comments Patient Update Reason Comments F/U 6 Month Hospital f/u Reason Comments Cough Cough, SOB and wheez ing x 8 days Reason Onset Date Comments Refill Request 09/04/2024 Reason Comments Medication Question Reason Comments Patient Question Orders Reason Comments F/U 1 month Care Teams (unrecognized sec tion and content) Portal Administrator Relationship Specialty Start Date End Date Lizy Capone MD [address] [facility] [place] [address] PCP - General 11/15/08 Portal Administrator Relationship Specialty Start Date End Date Lizy Capone MD [address] [facility] [place] [address] PCP - General 11/15/08 Portal Administrator Relationship Specialty Start Date End Date Lizy Capone MD [address] [facility] [place] [address] PCP - General 11/15/08 Portal Administrator Relationship Specialty Start Date End Date Lizy Capone MD [address] [facility] [place] [address] PCP - General 11/15/08 Portal Administrator Relationship Specialty Start Date End Date Lizy Capone MD [address] [facility] [place] [address] PCP - General 11/15/08 Portal Administrator Relationship Specialty Start Date End Date Lizy Capone MD [address] [facility] [place] [address] PCP - General 11/15/08 Portal Administrator Relationship Specialty Start Date End Date Lizy Capone MD [address] [facility] [place] [address] PCP - General 11/15/08 Portal Administrator Relationship Specialty Start Date End Date Lizy Capone MD [address] [facility] [place] [address] PCP - General 11/15/08 Portal Administrator Relationship Specialty Start Date End Date Lizy Capone MD [address] [facility] [place] [address] PCP - General 11/15/08 Portal Administrator Relationship Specialty Start Date End Date Lizy Capone MD [address] [facility] [place] [address] PCP - General 11/15/08 Portal Administrator Relationship Specialty Start Date End Date Lizy Capone MD [address] [place] [address], [place] [address] PCP - General 11/15/08 Portal Administrator Relationship Specialty Start Date End Date Lizy Capone MD [address] [place] [address], [place] [address] PCP - General 11/15/08 Portal Administrator Relationship Specialty Start Date End Date Lizy Capone MD [address] [place] [address], [place] [address] PCP - General 11/15/08 Portal Administrator Relationship Specialty Start Date End Date Lizy Capone MD [address] [place] [address], [place] [address] PCP - General 11/15/08 Portal Administrator Relationship Specialty Start Date End Date Lizy Capone MD [address] [place] [address], [place] [address] PCP - General 11/15/08 Portal Administrator Relationship Specialty Start Date End Date Lizy Capone MD [facility] [place] [address] PCP - General 11/15/08 Portal Administrator Relationship Specialty Start Date End Date Lizy Capone MD [address] [place] [address], [place] [address] PCP - General 11/15/08 Portal Administrator Relationship Specialty Start Date End Date Lizy Capone MD [address] [place] [address], [place] [address] PCP - General 11/15/08 Portal Administrator Relationship Specialty Start Date End Date Lizy Capone MD [address] [facility] [place] [address] PCP - General 11/15/08 Portal Administrator Relationship Specialty Start Date End Date Lizy Capone MD [address] [place] [address], [place] [address] PCP - General 11/15/08 Portal Administrator Relationship Specialty Start Date End Date Lizy Capone MD [address] [place] [address], [place] [address] PCP - General 11/15/08 Portal Administrator Relationship Specialty Start Date End Date Lizy Capone MD [address] [place] [address], [place] [address] PCP - General 11/15/08 Portal Administrator Relationship Specialty Start Date End Date Lizy Capone MD [address] [place] [address], [place] [address] PCP - General 11/15/08 Portal Administrator Relationship Specialty Start Date End Date Lizy Capone MD [address] [place] [address], [place] [address] PCP - General 11/15/08 Portal Administrator Relationship Specialty Start Date End Date Lizy Capone MD [facility] [place] [address] PCP - General 11/15/08 Portal Administrator Relationship Specialty Start Date End Date Lizy Capone MD [address] [place] [address], [place] [address] PCP - General 11/15/08 Portal Administrator Relationship Specialty Start Date End Date Lizy Capone MD [address] [place] [address], [place] [address] PCP - General 11/15/08 Portal Administrator Relationship Specialty Start Date End Date Lizy Capone MD [address] [place] [address] PCP - General 11/15/08 Portal Administrator Relationship Specialty Start Date End Date Lizy Capone MD [address] [place] [address] PCP - General 11/15/08 Team Status: Active Member Role Status Dates Dr. Lizy Capone MD Family Provider Active Dr. Lizy Capone MD Primary Care Provider Active Team Status: Active Member Role Status Dates Dr. Lizy Capone MD Primary Care Provider Active Tatiana Olson Attending Provider Active Team Status: Inactive Member Role Status Dates Dr. Lizy Capone MD Primary Care Provider, Referr ing Provider Active Dr. Norberto Jackson MD Attending Provider Active Team Status: Inactive Member Role Status Dates Dr. Lizy Capone MD Primary Care Provider Active Norberto Jackson MD Attending Provider Active Dr. Norberto Jackson MD Referring Provider Active Team Status: Inactive Member Role Status Dates Dr. Lizy Capone MD Primary Care Provider Active Dr. Kesha Acosta DO Attending Provider, Referring P rovider Active Dr. Norberto Jackson MD Other Provider Active Team Status: Inactive Member Role Status Dates Dr. Lizy Capone MD Primary Care Provider Active Dr. Kesha Acosta DO Attending Provider Active Portal Administrator Relationship Specialty Start Date End Date Lizy Capone MD [address] [place] [address] PCP - General 11/15/08 Team Status: Inactive Member Role Status Dates Dr. Lizy Capone MD Primary Care Provider Active Dr. Kesha Acosta DO Attending Provider, Referring P rovider Active Portal Administrator Relationship Specialty Start Date End Date Lizy Capone MD [address] [place] [address] PCP - General 11/15/08 Portal Administrator Relationship Specialty Start Date End Date Lizy Capone MD [address] [place] [address] PCP - General 11/15/08 Team Status: Active Member Role Status Dates Dr. Lizy Capone MD Primary Care Provider Active Dr. Norberto Jackson MD Other Provider Active Jas Bethea HOUSEKEEPER NANNY, HOUSEKEEPER NANNY-C Attending Provider Active Team Status: Active Member Role Status Dates Dr. Lizy Capone MD Primary Care Provider Active Dr. Norberto Jackson MD Other Provider Active Maria Teresa Olivo HOUSEKEEPER NANNY, HOUSEKEEPER NANNY-C Attending Provider Active Team Status: Inactive Member Role Status Dates Dr. Lizy Capone MD Primary Care Provider Active Dr. Norberto Jackson MD Attending Provider, Referring Pro vider Active Portal Administrator Relationship Specialty Start Date End Date Lizy Capone MD [address] [place] [address] PCP - General 11/15/08 Portal Administrator Relationship Specialty Start Date End Date Lizy Capone MD [address] [place] [address] PCP - General 11/15/08 Portal Administrator Relationship Specialty Start Date End Date Lizy Capone MD [address] [place] [address] PCP - General 11/15/08 Team Status: Inactive Member Role Status Dates Dr. Lizy Capone MD Primary Care Provider Active Dr. Gautam Hardy MD Attending Provider Active Portal Administrator Relationship Specialty Start Date End Date Lizy Capone MD [address] [place] [address] PCP - General 11/15/08 Portal Administrator Relationship Specialty Start Date End Date Lizy Capone MD [address] [place] [address] PCP - General 11/15/08 Portal Administrator Relationship Specialty Start Date End Date Lizy Capone MD [address] [place] [address] PCP - General 11/15/08 Portal Administrator Relationship Specialty Start Date End Date Lizy Capone MD [address] [place] [address] PCP - General 11/15/08 Portal Administrator Relationship Specialty Start Date End Date Lizy Capone MD [address] [place] [address] PCP - General 11/15/08 Portal Administrator Relationship Specialty Start Date End Date Lizy Capone MD [address] [place] [address] PCP - General 11/15/08 Portal Administrator Relationship Specialty Start Date End Date Lizy Capone MD [address] [place] [address] PCP - General 11/15/08 Portal Administrator Relationship Specialty Start Date End Date Lizy Capone MD [address] [place] [address] PCP - General 11/15/08 Portal Administrator Relationship Specialty Start Date End Date Lizy Capone MD [address] [place] [address] PCP - General 11/15/08 Portal Administrator Relationship Specialty Start Date End Date Lizy Capone MD [address] [place] [address] PCP - General 11/15/08 Portal Administrator Relationship Specialty Start Date End Date Lizy Capone MD [address] [place] [address] PCP - General 11/15/08 Portal Administrator Relationship Specialty Start Date End Date Lizy Capone MD [address] [place] [address] PCP - General 11/15/08 Portal Administrator Relationship Specialty Start Date End Date Lizy Capone MD [address] [place] [address] PCP - General 11/15/08 Team Status: Active Member Role Status Dates Dr. Lizy Capone MD Family Provider Active Miryam Orozco NP-C Primary Care Provider Active Team Status: Active Member Role Status Dates Dr. Judson Toney DO Emergency Provider Active BROOKLYN Aguillon Primary Care Provider Active Dr. Ralph Wheeler DO Admit Provider, Attending Pr ovider Active Team Status: Active Member Role Status Dates Dr. Judson Toney DO Emergency Provider Active Miryam Orozco NP-C Primary Care Provider Active Dr. Ralph [place] DO Admit Provider, Other Provid er Active Dr. Ralph Haynes MD Attending Provider, Other Provid er Active Team Status: Inactive Member Role Status Dates Dr. Judson Toney DO Emergency Provider Active Miryam Orozco NP-C Primary Care Provider Active Dr. Ralph Wheeler DO Admit Provider, Other Provid er Active Dr. Ralph Haynes MD Attending Provider Active Portal Administrator Relationship Specialty Start Date End Date Lizy Capone MD [address] [place] [address] PCP - General 11/15/08 Portal Administrator Relationship Specialty Start Date End Date Lizy Capone MD [address] [place] [address] PCP - General 11/15/08 Portal Administrator Relationship Specialty Start Date End Date Lizy Capoen MD [address] [place] [address] PCP - General 11/15/08 Portal Administrator Relationship Specialty Start Date End Date Lizy Capone MD [address] [place] [address] PCP - General 11/15/08 Portal Administrator Relationship Specialty Start Date End Date Lizy Capone MD [address] [place] [address] PCP - General 11/15/08 Portal Administrator Relationship Specialty Start Date End Date Lizy Capone MD [address] [place] [address] PCP - General 11/15/08 Portal Administrator Relationship Specialty Start Date End Date Lizy Capone MD [address] [place] [address] PCP - General 11/15/08 Portal Administrator Relationship Specialty Start Date End Date Lizy Capone MD [address] [place] [address] PCP - General 11/15/08 Portal Administrator Relationship Specialty Start Date End Date Lizy Capone MD [address] [place] [address] PCP - General 11/15/08 Portal Administrator Relationship Specialty Start Date End Date Lizy Capone MD [address] [place] [address] PCP - General 11/15/08 Portal Administrator Relationship Specialty Start Date End Date Lizy Capone MD [address] [place] [address] PCP - General 11/15/08 Portal Administrator Relationship Specialty Start Date End Date Lizy Capone MD [address] [place] [address] PCP - General 11/15/08 Portal Administrator Relationship Specialty Start Date End Date Lizy Capone MD [address] [place] [address] PCP - General 11/15/08 Portal Administrator Relationship Specialty Start Date End Date Lizy Capone MD [address] [place] [address] PCP - General 11/15/08 Portal Administrator Relationship Specialty Start Date End Date Lizy Capone MD [address] [place] [address] PCP - General 11/15/08 Miryam Orozco, NANCI.DIGITAL DATA ANALYST [address] [place] [address] [employer] [facility] 03/13/24 Mulugeta Jennings APRN.DIGITAL DATA ANALYST [address] [place] [address] [employer] Family [facility] 03/22/24 Portal Administrator Relationship Specialty Start Date End Date Miryam Orozco FNP [address] [facility] [address] [place] [address] PCP - General Family Medicine 05/04/24 Norberto Jackson MD [address] [place] [address] Cardiovascular Disease 05/05/24 Portal Administrator Relationship Specialty Start Date End Date Lziy Capone MD [address] [place], [place] [address] PCP - General 11/15/08 Miryam Orozco APRN.DIGITAL DATA ANALYST [address] [place], [place] [address] [employer] Family [facility] 03/13/24 Mulugeta Jennings APRN.DIGITAL DATA ANALYST [address] [place], [place] [id number] [employer] Family [facility] 03/22/24 Team Status: Inactive Member Role Status Dates BROOKLYN Aguillon Primary Care Provider Active Start: April 28, 2024 End: April 28, 2024 Dr. Mari Mehta DO Attending Provider Active Start: April 28, 2024 End: April 28, 2024 Team Status: Inactive Member Role Status Dates BROOKLYN Aguillon Primary Care Provider Active Start: May 01, 2024 End: May 04, 2024 Dr. Alexis Friend MD Emergency Provider Active Sta rt: May 01, 2024 End: May 04, 2024 Dr. Bernarda Becerril MD Admit Provider Active Star t: May 01, 2024 End: May 04, 2024 Dr. Bernarda Becerril MD Referring Provider Active Start: May 01, 2024 End: May 04, 2024 Dr. Bernarda Becerril MD Other Provider Active Star t: May 01, 2024 End: May 04, 2024 Dr. Qian Albrecht MD Other Provider Active Start: May 01, 2024 End: May 04, 2024 Dr. Devon Koenig MD Other Provider Active Start: May 01, 2024 End: May 04, 2024 Dr. Sunday Carlos MD Other Provider Active Start: May 01, 2024 End: May 04, 2024 Dr. Dre White MD Other Provider Active Star t: May 01, 2024 End: May 04, 2024 Dr. Edgar Davies DO Other Provider Active Start : May 01, 2024 End: May 04, 2024 Dr. Ralph Rudd MD Other Provider Active Sta rt: May 01, 2024 End: May 04, 2024 Dr. Kristopher Sykes MD Other Provider Active St art: May 01, 2024 End: May 04, 2024 Dr. Johnathan Hess MD Other Provider Active S tart: May 01, 2024 End: May 04, 2024 Dr. Korin Quinones MD Other Provider Active Start: May 01, 2024 End: May 04, 2024 Dr. Ayad Bruno MD Other Provider Active Start : May 01, 2024 End: May 04, 2024 Dr. Kin Young MD Other Provider Active Start: May 01, 2024 End: May 04, 2024 Dr. Anthony Martinez MD Other Provider Active Start : May 01, 2024 End: May 04, 2024 Dr. Ping Villalobos MD Other Provider Active Star t: May 01, 2024 End: May 04, 2024 Dr. Kristen Lockwood MD Other Provider Active Sta rt: May 01, 2024 End: May 04, 2024 Dr. Froilan Salcedo MD Other Provider Active Star t: May 01, 2024 End: May 04, 2024 Dr. Mani Farah MD Other Provider Active St art: May 01, 2024 End: May 04, 2024 Dr. Heladio Proctor MD Other Provider Active Star t: May 01, 2024 End: May 04, 2024 Dr. Mekhi Red DO Other Provider Active St art: May 01, 2024 End: May 04, 2024 Dr. Angela Pinto MD Other Provider Active Start: May 01, 2024 End: May 04, 2024 Dr. Ben Garces MD Other Provider Active St art: May 01, 2024 End: May 04, 2024 Dr. Bandar Hernandez DO Other Provider Active Start: May 01, 2024 End: May 04, 2024 Dr. Ky Bowers MD Other Provider Active Star t: May 01, 2024 End: May 04, 2024 Dr. Hussain John MD Other Provider Active Sta rt: May 01, 2024 End: May 04, 2024 Dr. Adithya Harrell MD Attending Provider Active Start: May 01, 2024 End: May 04, 2024 Dr. Ralph Haynes MD Other Provider Active Star t: May 01, 2024 End: May 04, 2024 Dr. Gerardo Rogers MD Other Provider Active Start: May 01, 2024 End: May 04, 2024 Dr. Naina Bello MD Other Provider Active Start: May 01, 2024 End: May 04, 2024 Michael Johnston MD Other Provider Active Start : May 01, 2024 End: May 04, 2024 Mulugeta Barker MS Other Provider Active Start: J anuary 2024 End: May 04, 2024 Dr. Gonzales Ying MD Other Provider Active Sta rt: May 01, 2024 End: May 04, 2024 Jae Cohen MD Other Provider Active Start: May 01, 2024 End: May 04, 2024 TAYA MENCHACA MD Other Provider Active Start: J anuary 2024 End: May 04, 2024 Adriana Germain MD Other Provider Active Start : May 01, 2024 End: May 04, 2024 Dr. Abi Yates MD Other Provider Active Start : May 01, 2024 End: May 04, 2024 Nicho Mcmillan MD Other Provider Active Start: May 01, 2024 End: May 04, 2024 Minal Garcia MD Other Provider Active Start: May 01, 2024 End: May 04, 2024 Team Status: Active Member Role Status Dates Miryam Orozco NP-C Primary Care Provider Active Start: May 02, 2024 End: May 02, 2024 Dr. Hua Arellano MD Attending Provider Activ e Start: May 02, 2024 End: May 02, 2024 Dr. Hua Arellano MD Referring Provider Activ e Start: May 02, 2024 End: May 02, 2024 Team Status: Active Member Role Status Dates MARILEE AguillonC Primary Care Provider Active Start: May 02, 2024 Dr. Alexis Friend MD Emergency Provider Active Sta rt: May 02, 2024 Dr. Bernarda Becerril MD Admit Provider Active Star t: May 02, 2024 Dr. Bernarda Becerril MD Other Provider Active Star t: May 02, 2024 Dr. Qian Albrecht MD Other Provider Active Start: May 02, 2024 Dr. Devon Koenig MD Other Provider Active Start: May 02, 2024 Dr. Sunday Carlos MD Other Provider Active Start: May 02, 2024 Dr. Dre White MD Other Provider Active Star t: May 02, 2024 Dr. Edgar Davies DO Other Provider Active Start : May 02, 2024 Dr. Ralph Rudd MD Other Provider Active Sta rt: May 02, 2024 Dr. Kristopher Sykes MD Other Provider Active St art: May 02, 2024 Dr. Johnathan Hess MD Other Provider Active S tart: May 02, 2024 Dr. Korin Quinones MD Other Provider Active Start: May 02, 2024 Dr. Ayad Bruno MD Other Provider Active Start : May 02, 2024 Dr. Kin Young MD Other Provider Active Start: May 02, 2024 Dr. Anthony Martinez MD Other Provider Active Start : May 02, 2024 Dr. Ping Villalobos MD Other Provider Active Star t: May 02, 2024 Dr. Kristen Lockwood MD Other Provider Active Sta rt: May 02, 2024 Dr. Froilan Salcedo MD Other Provider Active Star t: May 02, 2024 Dr. Mani Farah MD Other Provider Active St art: May 02, 2024 Dr. Heladio Proctor MD Other Provider Active Star t: May 02, 2024 Dr. Mekhi Red DO Other Provider Active St art: May 02, 2024 Dr. Angela Pinto MD Other Provider Active Start: May 02, 2024 Dr. Ben Garces MD Other Provider Active St art: May 02, 2024 Dr. Bandar Hernandez DO Other Provider Active Start: May 02, 2024 Dr. Ky Bowers MD Other Provider Active Star t: May 02, 2024 Dr. Hussain John MD Other Provider Active Sta rt: May 02, 2024 Dr. Ralph Haynes MD Attending Provider Active Start: May 02, 2024 Dr. Ralph Haynes MD Other Provider Active Star t: May 02, 2024 Team Status: Active Member Role Status Dates BROOKLYN Aguillon Primary Care Provider Active Start: May 02, 2024 Dr. Alexis Friend MD Emergency Provider Active Sta rt: May 02, 2024 Dr. Bernarda Becerril MD Admit Provider Active Star t: May 02, 2024 Dr. Bernarda Becerril MD Referring Provider Active Start: May 02, 2024 Dr. Bernarda Becerril MD Other Provider Active Star t: May 02, 2024 Dr. Qian Albrecht MD Other Provider Active Start: May 02, 2024 Dr. Devon Koenig MD Other Provider Active Start: May 02, 2024 Dr. Sunday Carlos MD Other Provider Active Start: May 02, 2024 Dr. Dre White MD Other Provider Active Star t: May 02, 2024 Dr. Edgar Davies DO Attending Provider Active S tart: May 02, 2024 Dr. Edgar Davies DO Other Provider Active Start : May 02, 2024 Dr. Ralph Rudd MD Other Provider Active Sta rt: May 02, 2024 Dr. Kristopher Sykes MD Other Provider Active St art: May 02, 2024 Dr. Johnathan Hess MD Other Provider Active S tart: May 02, 2024 Dr. Korin Quinones MD Other Provider Active Start: May 02, 2024 Dr. Ayad Bruno MD Other Provider Active Start : May 02, 2024 Dr. Kin Young MD Other Provider Active Start: May 02, 2024 Dr. Anthony Martinez MD Other Provider Active Start : May 02, 2024 Dr. Ping Villalobos MD Other Provider Active Star t: May 02, 2024 Dr. Kristen Lockwood MD Other Provider Active Sta rt: May 02, 2024 Dr. Froilan Salcedo MD Other Provider Active Star t: May 02, 2024 Dr. Mani Farah MD Other Provider Active St art: May 02, 2024 Dr. Heladio Proctor MD Other Provider Active Star t: May 02, 2024 Dr. Mekhi Red DO Other Provider Active St art: May 02, 2024 Dr. Angela Pinto MD Other Provider Active Start: May 02, 2024 Dr. Ben Garces MD Other Provider Active St art: May 02, 2024 Dr. Bandar Hernandez DO Other Provider Active Start: May 02, 2024 Dr. Ky Bowers MD Other Provider Active Star t: May 02, 2024 Dr. Hussain John MD Other Provider Active Sta rt: May 02, 2024 Dr. Ralph Haynes MD Other Provider Active Star t: May 02, 2024 Team Status: Active Member Role Status Dates BROOKLYN Aguillon Primary Care Provider Active Start: May 03, 2024 Dr. Alexis Friend MD Emergency Provider Active Sta rt: May 03, 2024 Dr. Bernarda Becerril MD Admit Provider Active Star t: May 03, 2024 Dr. Bernarda Becerril MD Other Provider Active Star t: May 03, 2024 Dr. Qian Albrecht MD Other Provider Active Start: May 03, 2024 Dr. Devon Koenig MD Other Provider Active Start: May 03, 2024 Dr. Sunday Carlos MD Other Provider Active Start: May 03, 2024 Dr. Dre White MD Other Provider Active Star t: May 03, 2024 Dr. Edgar Davies DO Other Provider Active Start : May 03, 2024 Dr. Ralph Rudd MD Other Provider Active Sta rt: May 03, 2024 Dr. Kristopher Sykes MD Other Provider Active St art: May 03, 2024 Dr. Johnathan Hess MD Other Provider Active S tart: May 03, 2024 Dr. Korin Quinones MD Other Provider Active Start: May 03, 2024 Dr. Ayad Bruno MD Other Provider Active Start : May 03, 2024 Dr. Kin Young MD Other Provider Active Start: May 03, 2024 Dr. Anthony Martinez MD Other Provider Active Start : May 03, 2024 Dr. Ping Villalobos MD Other Provider Active Star t: May 03, 2024 Dr. Kristen Lockwood MD Other Provider Active Sta rt: May 03, 2024 Dr. Froilan Salcedo MD Other Provider Active Star t: May 03, 2024 Dr. Mani Farah MD Other Provider Active St art: May 03, 2024 Dr. Heladio Proctor MD Other Provider Active Star t: May 03, 2024 Dr. Mekhi Red DO Other Provider Active St art: May 03, 2024 Dr. Angela Pinto MD Other Provider Active Start: May 03, 2024 Dr. Ben Garces MD Other Provider Active St art: May 03, 2024 Dr. Bandar Hernandez DO Other Provider Active Start: May 03, 2024 Dr. Ky Bowers MD Other Provider Active Star t: May 03, 2024 Dr. Hussain John MD Other Provider Active Sta rt: May 03, 2024 Dr. Ralph Haynes MD Attending Provider Active Start: May 03, 2024 Dr. Ralph Haynes MD Other Provider Active Star t: May 03, 2024 Team Status: Active Member Role Status Dates BROOKLYN Aguillon Primary Care Provider Active Start: May 03, 2024 Dr. Alexis Friend MD Emergency Provider Active Sta rt: May 03, 2024 Dr. Bernarda Becerril MD Admit Provider Active Star t: May 03, 2024 Dr. Bernarda Becerril MD Referring Provider Active Start: May 03, 2024 Dr. Bernarda Becerril MD Other Provider Active Star t: May 03, 2024 Dr. Qian Albrecht MD Other Provider Active Start: May 03, 2024 Dr. Devon Koenig MD Other Provider Active Start: May 03, 2024 Dr. Sunday Carlos MD Other Provider Active Start: May 03, 2024 Dr. Dre White MD Other Provider Active Star t: May 03, 2024 Dr. Edgar Davies DO Attending Provider Active S tart: May 03, 2024 Dr. Edgar Davies DO Other Provider Active Start : May 03, 2024 Dr. Ralph Rudd MD Other Provider Active Sta rt: May 03, 2024 Dr. Kristopher Sykes MD Other Provider Active St art: May 03, 2024 Dr. Johnathan Hess MD Other Provider Active S tart: May 03, 2024 Dr. Korin Quinones MD Other Provider Active Start: May 03, 2024 Dr. Ayad Bruno MD Other Provider Active Start : May 03, 2024 Dr. Kin Young MD Other Provider Active Start: May 03, 2024 Dr. Anthony Martinez MD Other Provider Active Start : May 03, 2024 Dr. Ping Villalobos MD Other Provider Active Star t: May 03, 2024 Dr. Kristen Lockwood MD Other Provider Active Sta rt: May 03, 2024 Dr. Froilan Salcedo MD Other Provider Active Star t: May 03, 2024 Dr. Mani Farah MD Other Provider Active St art: May 03, 2024 Dr. Heladio Proctor MD Other Provider Active Star t: May 03, 2024 Dr. Mekhi Red DO Other Provider Active St art: May 03, 2024 Dr. Angela Pinto MD Other Provider Active Start: May 03, 2024 Dr. Ben Garces MD Other Provider Active St art: May 03, 2024 Dr. Bandar Hernandez DO Other Provider Active Start: May 03, 2024 Dr. Ky Bowers MD Other Provider Active Star t: May 03, 2024 Dr. Hussain John MD Other Provider Active Sta rt: May 03, 2024 Dr. Ralph Haynes MD Other Provider Active Star t: May 03, 2024 Team Status: Active Member Role Status Dates BROOKLYN Aguillon Primary Care Provider Active Start: May 04, 2024 Dr. Alexis rFiend MD Emergency Provider Active Sta rt: May 04, 2024 Dr. Bernarda Becerril MD Admit Provider Active Star t: May 04, 2024 Dr. Bernarda Becerril MD Other Provider Active Star t: May 04, 2024 Dr. Qian Albrecht MD Other Provider Active Start: May 04, 2024 Dr. Devon Koenig MD Other Provider Active Start: May 04, 2024 Dr. Sunday Carlos MD Other Provider Active Start: May 04, 2024 Dr. Dre White MD Other Provider Active Star t: May 04, 2024 Dr. Edgar Davies DO Other Provider Active Start : May 04, 2024 Dr. Ralph Rudd MD Other Provider Active Sta rt: May 04, 2024 Dr. Kristopher Sykes MD Other Provider Active St art: May 04, 2024 Dr. Johnathan Hess MD Other Provider Active S tart: May 04, 2024 Dr. Korin Quinones MD Other Provider Active Start: May 04, 2024 Dr. Ayad Bruno MD Other Provider Active Start : May 04, 2024 Dr. Kin Young MD Other Provider Active Start: May 04, 2024 Dr. Anthony Martinez MD Other Provider Active Start : May 04, 2024 Dr. Ping Villalobos MD Other Provider Active Star t: May 04, 2024 Dr. Kristen Lockwood MD Other Provider Active Sta rt: May 04, 2024 Dr. Froilan Salcedo MD Other Provider Active Star t: May 04, 2024 Dr. Mani Farah MD Other Provider Active St art: May 04, 2024 Dr. Heladio Proctor MD Other Provider Active Star t: May 04, 2024 Dr. Mekhi Red DO Other Provider Active St art: May 04, 2024 Dr. Angela Pinto MD Other Provider Active Start: May 04, 2024 Dr. Ben Garces MD Other Provider Active St art: May 04, 2024 Dr. Bandar Hernandez DO Other Provider Active Start: May 04, 2024 Dr. Ky Bowers MD Other Provider Active Star t: May 04, 2024 Dr. Hussain John MD Other Provider Active Sta rt: May 04, 2024 Dr. Adithya Harrell MD Attending Provider Active Start: May 04, 2024 Dr. Adithya Harrell MD Other Provider Active Sta rt: May 04, 2024 Dr. Ralph Haynes MD Other Provider Active Star t: May 04, 2024 Dr. Gerardo Rogers MD Other Provider Active Start: May 04, 2024 Dr. Naina Bello MD Other Provider Active Start: May 04, 2024 Michael Johnston MD Other Provider Active Start : May 04, 2024 Mulugeta Barker MS Other Provider Active Start: J anuary 2024 Dr. Gonzales Ying MD Other Provider Active Sta rt: May 04, 2024 Jae Cohen MD Other Provider Active Start: May 04, 2024 TAYA MENCHACA MD Other Provider Active Start: J anuary 2024 Adriana Germain MD Other Provider Active Start : May 04, 2024 Dr. Abi Yates MD Other Provider Active Start : May 04, 2024 Nicho Mcmillan MD Other Provider Active Start: May 04, 2024 Minal Garcia MD Other Provider Active Start: May 04, 2024 Team Status: Active Member Role Status Dates BROOKLYN Aguillon Primary Care Provider Active Start: May 04, 2024 Dr. Alexis Friend MD Emergency Provider Active Sta rt: May 04, 2024 Dr. Bernarda Becerril MD Admit Provider Active Star t: May 04, 2024 Dr. Bernarda Becerril MD Referring Provider Active Start: May 04, 2024 Dr. Bernarda Becerril MD Other Provider Active Star t: May 04, 2024 Dr. Qian Albrecht MD Other Provider Active Start: May 04, 2024 Dr. Devon Koenig MD Other Provider Active Start: May 04, 2024 Dr. Sunday Carlos MD Other Provider Active Start: May 04, 2024 Dr. Dre White MD Other Provider Active Star t: May 04, 2024 Dr. Edgar Davies DO Attending Provider Active S tart: May 04, 2024 Dr. Edgar Davies DO Other Provider Active Start : May 04, 2024 Dr. Ralph Rudd MD Other Provider Active Sta rt: May 04, 2024 Dr. Kristopher Sykes MD Other Provider Active St art: May 04, 2024 Dr. Johnathan Hess MD Other Provider Active S tart: May 04, 2024 Dr. Korin Quinones MD Other Provider Active Start: May 04, 2024 Dr. Ayad Bruno MD Other Provider Active Start : May 04, 2024 Dr. Kin Young MD Other Provider Active Start: May 04, 2024 Dr. Anthony Martinez MD Other Provider Active Start : May 04, 2024 Dr. Ping Villalobos MD Other Provider Active Star t: May 04, 2024 Dr. Kristen Lockwood MD Other Provider Active Sta rt: May 04, 2024 Dr. Froilan Salcedo MD Other Provider Active Star t: May 04, 2024 Dr. Mani Farah MD Other Provider Active St art: May 04, 2024 Dr. Heladio Proctor MD Other Provider Active Star t: May 04, 2024 Dr. Mekhi Red DO Other Provider Active St art: May 04, 2024 Dr. Angela Pinto MD Other Provider Active Start: May 04, 2024 Dr. Ben Garces MD Other Provider Active St art: May 04, 2024 Dr. Bandar Hernandez DO Other Provider Active Start: May 04, 2024 Dr. Ky Bowers MD Other Provider Active Star t: May 04, 2024 Dr. Hussain John MD Other Provider Active Sta rt: May 04, 2024 Dr. Adithya Harrell MD Other Provider Active Sta rt: May 04, 2024 Dr. Ralph Haynes MD Other Provider Active Star t: May 04, 2024 Dr. Gerardo Rogers MD Other Provider Active Start: May 04, 2024 Michael Johnston MD Other Provider Active Start : May 04, 2024 Adriana Germain MD Other Provider Active Start : May 04, 2024 Nicho Mcmillan MD Other Provider Active Start: May 04, 2024 Minal Garcia MD Other Provider Active Start: May 04, 2024 Dr. Abi Yates MD Other Provider Active Start : May 04, 2024 Mulugeta Barker MS Other Provider Active Start: J anuary 2024 Dr. Gonzales Ying MD Other Provider Active Sta rt: May 04, 2024 TAYA MENCHACA MD Other Provider Active Start: J anuary 2024 Jae Cohen MD Other Provider Active Start: May 04, 2024 Dr. Naina Bello MD Other Provider Active Start: May 04, 2024 Team Status: Inactive Member Role Status Dates Miryam Orozco HOUSEKEEPER NANNY-C Primary Care Provider Active Start: May 18, 2024 End: June 10, 2024 Dr. Mari Mehta DO Admit Provider Active Start: May End: June 10, 2024 Dr. Mari Mehta DO Attending Provider Active Start: May End: June 10, 2024 Dr. Gerardo Rogers MD Other Provider Active Start: May 18, 2024 End: June 10, 2024 Team Status: Active Member Role Status Dates Miryam Orozco NP-C Primary Care Provider Active Start: May 19, 2024 Dr. Mari Mehta DO Admit Provider Active Start: May Dr. Mari Mehta DO Attending Provider Active Start: May Dr. Mari Mehta DO Other Provider Active Start: May Team Status: Active Member Role Status Dates MARILEE AguillonC Primary Care Provider Active Start: May 20, 2024 Dr. Mari Mehta DO Admit Provider Active Start: May Dr. Mari Mehta DO Attending Provider Active Start: May Dr. Mari Mehta DO Other Provider Active Start: May Team Status: Active Member Role Status Dates Miryam Orozco NP-C Primary Care Provider Active Start: May 23, 2024 Dr. Mari Mehta DO Admit Provider Active Start: May Dr. Mari Mehta DO Attending Provider Active Start: May Dr. Mari Mehta DO Other Provider Active Start: May Team Status: Active Member Role Status Dates Miryam Orozco HOUSEKEEPER NANNY-C Primary Care Provider Active Start: May 26, 2024 Dr. Mari Mehta DO Admit Provider Active Start: May Dr. Mari Mehta DO Attending Provider Active Start: May Dr. Mari Mehta DO Other Provider Active Start: May Team Status: Active Member Role Status Dates Miryam Orozco NP-C Primary Care Provider Active Start: May 27, 2024 Dr. Mari Mehta DO Admit Provider Active Start: May Dr. Mari Mehta DO Attending Provider Active Start: May Dr. Mari Mehta DO Other Provider Active Start: May Team Status: Active Member Role Status Dates Miryam Orozco NP-C Primary Care Provider Active Start: May 30, 2024 Dr. Mari Mehta DO Admit Provider Active Start: May Dr. Mari Mehta DO Attending Provider Active Start: May Dr. Mari Mehta DO Other Provider Active Start: May Team Status: Active Member Role Status Dates Miryam Orozco NP-C Primary Care Provider Active Start: May 31, 2024 Dr. Mari Mehta DO Admit Provider Active Start: May Dr. Mari Mehta DO Attending Provider Active Start: May Dr. Mari Mehta DO Other Provider Active Start: May Team Status: Active Member Role Status Dates Miryam Orozco HOUSEKEEPER NANNY-C Primary Care Provider Active Start: June 02, 2024 Dr. Mari Mehta DO Admit Provider Active Start: May Dr. Mari Mehta DO Attending Provider Active Start: May Dr. Mari Mehta , DO Other Provider Active Start: May Team Status: Active Member Role Status Dates Miryam Orozco HOUSEKEEPER NANNY-C Primary Care Provider Active Start: June 06, 2024 Dr. Mari Mehta , Admit Provider Active Start: June 06, 2024 Dr. Mari Mehta , DO Attending Provider Act vianney Start: June 06, 2024 Dr. Mari Mehta , Other Provider Active Start: June 06, 2024 Team Status: Active Member Role Status Dates Miryam Orozco HOUSEKEEPER NANNY-C Primary Care Provider Active Start: June 07, 2024 Dr. Mari Mehta , Admit Provider Active Start: June 07, 2024 Dr. Mari Mehta DO Attending Provider Act vianney Start: June 07, 2024 Dr. Mari Mehta DO Other Provider Active Start: June 07, 2024 Team Status: Active Member Role Status Dates Miryam Orozco HOUSEKEEPER NANNY-C Primary Care Provider Active Start: June 07, 2024 Christa Michel RN Attending Provider Active Start: June 07, 2024 Team Status: Active Member Role Status Dates Miryam Orozco NP-C Primary Care Provider Active Start: June 09, 2024 Dr. Mari Mehta DO Admit Provider Active Start: June 09, 2024 Dr. Mari Mehta DO Attending Provider Act vianney Start: June 09, 2024 Dr. Mari Mehta DO Other Provider Active Start: June 09, 2024 Dr. Gerardo Rogers MD Other Provider Active Start: June 09, 2024 Team Status: Active Member Role Status Dates Miryam Orozco NP-C Primary Care Provider Active Start: June 10, 2024 Dr. Mari Mehta DO Admit Provider Active Start: June 10, 2024 Dr. Mari Mehta , DO Attending Provider Act vianney Start: June 10, 2024 Dr. Mari Mehta DO Other Provider Active Start: June 10, 2024 Dr. Gerardo Rogers MD Other Provider Active Start: June 10, 2024 Team Status: Active Member Role Status Dates Miryam Orozco HOUSEKEEPER NANNY-C Primary Care Provider Active Start: June 13, 2024 Gustavo MANZO MD Attending Provider Active Start: June 13, 2024 Team Status: Active Member Role Status Dates Miryam Orozco HOUSEKEEPER NANNY-C Primary Care Provider Active Start: June 20, 2024 Gustavo MANZO MD Attending Provider Active Start: June 20, 2024 Team Status: Active Member Role Status Dates Miryam Orozco HOUSEKEEPER NANNY-C Primary Care Provider Active Start: June 27, 2024 Gustavo MANZO MD Attending Provider Active Start: June 27, 2024 Team Status: Active Member Role Status Dates Miryam Orozco HOUSEKEEPER NANNY-C Primary Care Provider Active Start: July 04, 2024 Gustavo MANZO MD Attending Provider Active Start: July 04, 2024 Team Status: Active Member Role Status Dates Miryam Orozco HOUSEKEEPER NANNY-C Primary Care Provider Active Start: July 11, 2024 Gustavo MANZO MD Attending Provider Active Start: July 11, 2024 Team Status: Active Member Role Status Dates Miryam Orozco HOUSEKEEPER NANNY-C Primary Care Provider Active Team Status: Inactive Member Role Status Dates Miryam Orozco HOUSEKEEPER NANNY-C Primary Care Provider Active Start: June 13, 2024 End: June 13, 2024 Minna Villarreal NP, HOUSEKEEPER NANNY-C Attending Provider Active Start: June 13, 2024 End: June 13, 2024 Team Status: Inactive Member Role Status Dates Miryam Orozco HOUSEKEEPER NANNY-C Primary Care Provider Active Start: June 14, 2024 End: June 14, 2024 Dr. Gustavo Castorena MD Attending Provider Active Start: June 14, 2024 End: June 14, 2024 Team Status: Inactive Member Role Status Dates Miryam Orozco HOUSEKEEPER NANNY-C Primary Care Provider Active Start: June 22, 2024 End: June 22, 2024 Minna Villarreal NP, HOUSEKEEPER NANNY-C Attending Provider Active Start: June 22, 2024 End: June 22, 2024 Team Status: Active Member Role Status Dates Miryam Orozco HOUSEKEEPER NANNY-C Primary Care Provider Active Start: July 11, 2024 Gustavo MANZO MD Attending Provider Active Start: July 11, 2024 Gustavo MANZO MD Referring Provider Active Start: July 11, 2024 Team Status: Active Member Role Status Dates Miryam Orozco NP-C Primary Care Provider Active Start: July 18, 2024 Gustavo MANZO MD Attending Provider Active Start: July 18, 2024 Team Status: Active Member Role Status Dates Miryam Orozco NP-C Primary Care Provider Active Start: July 25, 2024 Gustavo MANZO MD Attending Provider Active Start: July 25, 2024 Team Status: Inactive Member Role Status Dates MARILEE AguillonC Primary Care Provider Active Start: July 29, 2024 End: July 29, 2024 Dr. Jean Paul Ha DO Emergency Provider Active Start : July 29, 2024 End: July 29, 2024 Portal Administrator Relationship Specialty Start Date End Date Lizy Capone MD [address] [place] [address] PCP General 11/15/08 Mulugeta Jennings APRN.DIGITAL DATA ANALYST [address] [place] [address] [facility] 03/22/24 Portal Administrator Relationship Specialty Start Date End Date Lizy Capone MD [address] [place] [address] PCP General 11/15/08 Mulugeta Jennings APRN.DIGITAL DATA ANALYST [address] [place] [address] [facility] 03/22/24 Team Status: Inactive Member Role Status Dates MARILEE AguillonC Primary Care Provider Active Start: July 29, 2024 End: July 29, 2024 Dr. Jean Paul Ha DO Attending Provider Active Start : July 29, 2024 End: July 29, 2024 Dr. Jean Paul Ha DO Emergency Provider Active Start : July 29, 2024 End: July 29, 2024 Team Status: Active Member Role Status Dates MARILEE AguillonC Primary Care Provider Active Start: August 01, 2024 Gustavo MANZO MD Attending Provider Active Start: August 01, 2024 Gustavo MANZO MD Referring Provider Active Start: August 01, 2024 Team Status: Active Member Role Status Dates Miryam Orozco HOUSEKEEPER NANNY-C Primary Care Provider Active Start: August 08, 2024 Gustavo MANZO MD Attending Provider Active Start: August 08, 2024 Team Status: Inactive Member Role Status Dates Miryam Orozco HOUSEKEEPER NANNY-C Primary Care Provider Active Start: August 12, 2024 End: August 12, 2024 Miryam Orozco HOUSEKEEPER NANNY-C Referring Provider Active Start: August 12, 2024 End: August 12, 2024 Dr. Gonzalo Lomax MD Attending Provider Active Start: August 12, 2024 End: August 12, 2024 Team Status: Active Member Role Status Dates Miryam Orozco HOUSEKEEPER NANNY-C Primary Care Provider Active Start: August 15, 2024 Dr. Gonzalo Lomax MD Attending Provider Active Start: August 15, 2024 Dr. Gonzalo Lomax MD Referring Provider Active Start: August 15, 2024 Dr. Gonzalo Lomax MD Other Provider Active Star t: August 15, 2024 Team Status: Active Member Role Status Dates Miryam Orozco HOUSEKEEPER NANNY-C Primary Care Provider Active Start: August 16, 2024 Gustavo MANZO MD Attending Provider Active Start: August 16, 2024 Team Status: Active Member Role Status Dates Miryam Orozco HOUSEKEEPER NANNY-C Primary Care Provider Active Start: August 18, 2024 Gustavo MANZO MD Attending Provider Active Start: August 18, 2024 Team Status: Active Member Role Status Dates Miryam Orozco HOUSEKEEPER NANNY-C Primary Care Provider Active Start: August 22, 2024 Gustavo MANZO MD Attending Provider Active Start: August 22, 2024 Team Status: Active Member Role Status Dates Miryam Orozco HOUSEKEEPER NANNY-C Primary Care Provider Active Start: August 22, 2024 Dr. Gonzalo Lomax MD Attending Provider Active Start: August 22, 2024 Dr. Gonzalo Lomax MD Referring Provider Active Start: August 22, 2024 Dr. Gonzalo Lomax MD Other Provider Active Star t: August 22, 2024 Team Status: Inactive Member Role Status Dates Miryam Orozco NP-C Primary Care Provider Active Start: September 01, 2024 End: September 03, 2024 Dr. Gonzalo Lomax MD Attending Provider Active Start: September 01, 2024 End: September 03, 2024 Dr. Gonzalo Lomax MD Referring Provider Active Start: September 01, 2024 End: September 03, 2024 Team Status: Active Member Role Status Dates MARILEE AguillonC Primary Care Provider Active Start: September 01, 2024 Dr. Gonzalo Lomax MD Attending Provider Active Start: September 01, 2024 Dr. Gonzalo Lomax MD Referring Provider Active Start: September 01, 2024 Dr. Gonzalo Lomax MD Other Provider Active Star t: September 01, 2024 Portal Administrator Relationship Specialty Start Date End Date Lizy Capone MD [address] [facility] [place], [place] [id number] PCP - General 11/15/08 Mulugeta Jennings, MARKET MANAGER.DIGITAL DATA ANALYST [address] [facility] [place], [place] [id number] [phone] [facility] 03/22/24 Team Status: Inactive Member Role Status Dates Miryam Orozco HOUSEKEEPER NANNY-C Primary Care Provider Active Start: September 05, 2024 End: September 05, 2024 Miryam Orozco NP-C Referring Provider Active Start: September 05, 2024 End: September 05, 2024 Dr. Mehdi Womack MD Attending Provider Active Start: September 05, 2024 End: September 05, 2024 Portal Administrator Relationship Specialty Start Date End Date Lizy Capone MD [address] [facility] [place], [place] [address] PCP - General 11/15/08 Mulugeta Jennings MARKET MANAGER.DIGITAL DATA ANALYST [address] [facility] [place] [address] [facility] 03/22/24 Portal Administrator Relationship Specialty Start Date End Date Lizy Capone MD [address] [place] [address] PCP - General 11/15/08 Mulugeta Jennings APRN.DIGITAL DATA ANALYST [address] [place] [address] [employer] [facility] [place] 03/22/24 Portal Administrator Relationship Specialty Start Date End Date Lizy Capone MD [address] [place] [address] PCP - General 11/15/08 Mulugeta Jennings APRN.DIGITAL DATA ANALYST [address] [place] [address] [employer] [facility] [place] 03/22/24 Portal Administrator Relationship Specialty Start Date End Date Lizy Capone MD [address] [place] [address] PCP - General 11/15/08 Mulugeta Jennings, MARKET MANAGER.DIGITAL DATA ANALYST [address] [place] [address] [employer] [facility] [place] 03/22/24 Portal Administrator Relationship Specialty Start Date End Date Lizy Capone MD [address] [place] [address] PCP - General 11/15/08 Mulugeta Jennings APRN.DIGITAL DATA ANALYST [address] [place] [address] [employer] [facility] [place] 03/22/24 Team Status: Active Member Role Status Dates Miryam Tannhof , HOUSEKEEPER NANNY-C Primary Care Provider Active Start: August 22, 2024 Gustavo MANZO MD Attending Provider Active Start: August 22, 2024 Gustavo MANZO MD Referring Provider Active Start: August 22, 2024 Team Status: Inactive Member Role Status Dates Miryam Orozco NP-C Primary Care Provider Active Start: September 06, 2024 End: September 06, 2024 Dr. Gonzalo Lomax MD Attending Provider Active Start: September 06, 2024 End: September 06, 2024 Dr. Gonzalo Lomax MD Referring Provider Active Start: September 06, 2024 End: September 06, 2024 Team Status: Active Member Role Status Dates Miryam Orozco NP-C Primary Care Provider Active Start: September 06, 2024 Dr. Gonzalo Lomax MD Attending Provider Active Start: September 06, 2024 Dr. Gonzalo Lomax MD Referring Provider Active Start: September 06, 2024 Dr. Gonzalo Lomax MD Other Provider Active Star t: September 06, 2024 Portal Administrator Relationship Specialty Start Date End Date Lizy Capone MD [address] [place], [place] [id number] PCP - General 11/15/08 Mulugeta Jennings APRN.DIGITAL DATA ANALYST [address] [place], [place] [address] [facility] 03/22/24 Team Status: Inactive Member Role Status Dates MARILEE AguillonC Primary Care Provider Active Start: July 20, 2024 End: July 20, 2024 Minna Villarreal NP, HOUSEKEEPER NANNY-C Attending Provider Active Start: July 20, 2024 End: July 20, 2024 Team Status: Active Member Role Status Dates Miryam Orozco NP-C Primary Care Provider Active Start: September 12, 2024 Dr. Gonzalo Lomax MD Attending Provider Active Start: September 12, 2024 Dr. Gonzalo Lomax MD Referring Provider Active Start: September 12, 2024 Dr. Gonzalo Lomax MD Other Provider Active Star t: September 12, 2024 Team Status: Active Member Role Status Dates BROOKLYN Aguillon Primary Care Provider Active Start: September 19, 2024 Dr. Gonzalo Lomax MD Attending Provider Active Start: September 19, 2024 Dr. Gonzalo Lomax MD Referring Provider Active Start: September 19, 2024 Team Status: Active Member Role Status Dates BROOKLYN Aguillon Primary Care Provider Active Start: September 20, 2024 Dr. Gonzalo Lomax MD Attending Provider Active Start: September 20, 2024 Dr. Gonzalo Lomax MD Referring Provider Active Start: September 20, 2024 Dr. Gonzalo Lomax MD Other Provider Active Star t: September 20, 2024 Team Status: Active Member Role Status Dates BROOKLYN Aguillon Primary Care Provider Active Start: September 28, 2024 Dr. Jhonatan Maxwell DO Emergency Provider Active Start: September 28, 2024 Dr. Michelle Gallardo MD Admit Provider Active St art: September 28, 2024 Dr. Michelle Gallardo MD Attending Provider Active Start: September 28, 2024 Dr. Michelle Gallardo MD Other Provider Active St art: September 28, 2024 Goals (unrecognized section and content) Goals may be documented in a n alternate sectionGoals may be documented in an alternate sectionGoals may be documented in an alternate sectionGoals may be documented in an alternate sectionGoals may be documented in an alternate sectionGoals may be documented in an alternate sectionGoals may be documented in an alternate sectionGoals may be documented in an alternate sectionGoals may be documented in an alternate sectionGoals may be documented in an alternate sectionGoals may be documented in an alternate sectionGoals may be documented in an alternate sectionGoals may be documented in an alternate sectionGoals may be documented in an alternate sectionGoals may be documented in an alternate section PRN Active and Recently Administ ered Medications (unrecognized section and content) Medication Order 12/23/2021 12/24/2021 12/25/2021 bupivacaine(PF) 0.75 % (7.5 mg/mL) injection (MARCAINE PF) (CANCELED) X (OR/PROCEDURE) PRN, Starting on Thu12/25/21 at 1253, Until Thu12/25/21 at 1259, Intraprocedure 1253 (Given - Provid er: Roque Delgado MD - Comment: GOKULB L4-5, 5-S1 bilateral) iohexol IV injection (OMNIPAQUE 300) (CANCELED) X (OR/PROCEDURE) PRN, Starting on Thu12/25/21 at 1252, Until Thu12/25/21 at 1259, Intraprocedure 1252 (Given - Provid er: Roque Delgado MD - Comment: MBB L4-5, 5-S1 injection bilateral) lidocaine (PF) 10 mg/mL (1 %) injection (XYLOCAINE) (CANCELED) X (OR/PROCEDURE) PRN, Starting on Thu12/25/21 at 1247, Until Thu12/25/21 at 1259, Intraprocedure 1247 (Given - Provid er: Roque Delgado MD - Comment: MBB L4-5, L5-S1 injection bilateral) PRN Medication Order 01/06/2022 01/07/2022 01/08/2022 iohexol IV injection (OMNIPAQUE 300) (CANCELED) X (OR/PROCEDURE) PRN, Starting on Thu01/08/22 at 1123, Until Thu01/08/22 at 1137, Intraprocedure 1123 (Given - Provid er: Roque Delgado MD - Comment: MBB Bilateral L4-5; L5-S1) lidocaine (PF) 10 mg/mL (1 %) injection (XYLOCAINE) (CANCELED) X (OR/PROCEDURE) PRN, Starting on Thu01/08/22 at 1124, Until Thu01/08/22 at 1137, Intraprocedure 1124 (Given - Provid er: Roque Delgado MD - Comment: MBB Bilateral L4-5; L5-S1) lidocaine 20 mg/mL (2 %) injection (XYLOCAINE) (CANCELED) X (OR/PROCEDURE) PRN, Starting on Thu01/08/22 at 1123, Until Thu01/08/22 at 1137, Intraprocedure 1123 (Given - Provid er: Roque Delgado MD - Comment: MBB Bilateral L4-5; L5-S1) Scheduled Medication Order 05/16/2024 05/17/2024 05/18/2024 apixaban (ELIQUIS) tablet 10 mg (COMPLETED) 10 mg, Per NG tube, EVERY 12 HOURS, 12 doses, First dose (after last modification) on Thu05/11/24 at 1100, Last dose on Thu05/16/24 at 2100, Due to the rapid onset of action of apixaban, no overlap is needed with other anticoagulants (e.g. enoxaparin, heparin)., Indications: Venous Thromboembolism 08 (Given - Provider: Ebony Fuentes RN)2038 (Given - Provider: Linda Kennedy RN) apixaban (ELIQUIS) tablet 5 mg (CANCELED) 5 mg, Per NG tube, EVERY 12 HOURS, First dose (after last modification) on Thu05/17/24 at 0900, Until Discontinued, Due to the rapid onset of action of apixaban, no overlap is needed with other anticoagulants (e.g. enoxaparin, heparin)., Indications: Venous Thromboembolism 0843 (Given - Provider: Ebony Fuentes RN)2208 (Not Given - Provider: Linda Kennedy RN - Reason: Other - Comment: NG not in place) apixaban (ELIQUIS) tablet 5 mg(Linked Group 1) 5 mg, Oral, EVERY 12 HOURS, First dose (after last modification) on Thu05/17/24 at 2215, Until Discontinued, Due to the rapid onset of action of apixaban, no overlap is needed with other anticoagulants (e.g. enoxaparin, heparin)., Indications: Venous Thromboembolism 2243 (Given - Provider: Linda eKnnedy RN) 800 (Given - Provider: Steffany Mishra RN) Atorvastatin (LIPITOR) tablet 40 mg 40 mg, Oral, DAILY AT BEDTIME, First dose on Thu05/13/24 at 2100, Until Discontinued 2038 (Given - Provider: Linda Kennedy RN) 2234 (Given - Provider: Linda Kennedy RN) Barium Sulfate (VARIBAR THIN LIQUID) 40 % 50-600 mL (COMPLETED) 50-600 mL, Oral, ONCE, 1 dose, On Thu05/17/24 at 1045, Radiology Procedure 1007 (Given - Radiology - Provider: Catalina Parker) carveDILOL (COREG) tablet 6.25 mg (CANCELED) 6.25 mg, Per NG tube, EVERY 12 HOURS, First dose (after last modification) on Thu05/11/24 at 0945, Until Discontinued 828 (Given - Provider: Ebony Fuentes RN)2038 (Given - Provider: Linda Kennedy RN) 0842 (Given - Provider: Ebony Fuentes RN)2209 (Not Given - Provider: Linda Kennedy RN - Reason: Other - Comment: NG not in place) carveDILOL (COREG) tablet 6.25 mg 6.25 mg, Oral, EVERY 12 HOURS, First dose (after last modification) on Thu05/17/24 at 2215, Until Discontinued 2234 (Given - Provider: Linda Kennedy RN) 800 (Given - Provider: Steffany Mishra RN) furOSEmide (LASIX) injection 20 mg (CANCELED) 20 mg, Intravenous, DAILY, First dose (after last reorder) on Thu05/15/24 at 0915, Until Discontinued, Administer by slow IV push at a rate not exceeding 40mg/min 08 (Given - Provider: Ebony Fuentes RN) 08 (Given - Provider: Ebony Fuentes RN) furOSEmide (LASIX) tablet 40 mg 40 mg, Oral, DAILY, First dose (after last modification) on Thu05/18/24 at 0900, Until Discontinued 800 (Given - Provider: Steffany Mishra RN) Lacosamide (VIMPAT) injection 100 mg (CANCELED) 100 mg, Intravenous, EVERY 12 HOURS NON-STANDARD, First dose on Thu05/05/24 at 0130, Until Discontinued, Using undiluted 10mg/mL vial, withdraw appropriate dose into syringe. Expires 4 hours after piercing vial. Administer by slow IV push at a rate not to exceed 80mg/min. 0212 (Given - Provider: Lizett Mckeon RN)1321 (Given - Provider: Ebony Fuentes RN) 0020 (Given - Provider: Linda Kennedy RN)1224 (Given - Provider: Ebony Fuentes RN) 0017 (Given - Provider: Linda Kennedy RN) Lacosamide (VIMPAT) tablet 100 mg 100 mg, Oral, CUSTOM FREQUENCY (2 times per day), First dose on Thu05/18/24 at 1230, Until Discontinued 1235 (Given - Provider: Steffany Mishra, KEVIN) Levothyroxine (SYNTHROID) tablet 125 mcg (CANCELED) 125 mcg, Per NG tube, DAILY BEFORE BREAKFAST, First dose (after last modification) on Thu05/12/24 at 0600, Until Discontinued 0645 (Given - Provider: Lizett Mckeon RN) 0527 (Given - Provider: Linda Kennedy, RN) Levothyroxine (SYNTHROID) tablet 125 mcg 125 mcg, Oral, DAILY BEFORE BREAKFAST, First dose (after last modification) on Thu05/18/24 at 0600, Until Discontinued 0538 (Given - Provider: Linda Kennedy, RN) ProSource TF 1 Package (CANCELED) 1 Package, Nasogastric, DAILY, First dose on Thu05/06/24 at 1215, Until Discontinued, Shake packet before use. Infuse directly down the feeding tube via syringe without diluting. Flush tube with 15-30 ml of water before and after administration. 0830 (Given - Provider: Ebony Fuentes RN) ProSource TF 1 Package (CANCELED) 1 Package, Nasogastric, 2 TIMES DAILY, First dose (after last modification) on Thu05/16/24 at 1700, Until Discontinued, Shake packet before use. Infuse directly down the feeding tube via syringe without diluting. Flush tube with 15-30 ml of water before and after administration. 1741 (Given - Provider: Ginger Vance RN) 0844 (Given - Provider: Ebony Fuentes, KEVIN)1834 (Not Given - Provider: Ebony Fuentes RN - Reason: Other - Comment: pt without NG) ProSource TF 1 Package 1 Package, Oral, 2 TIMES DAILY, First dose (after last modification) on Thu05/18/24 at 0900, Until Discontinued, Shake packet before use. Infuse directly down the feeding tube via syringe without diluting. Flush tube with 15-30 ml of water before and after administration. 0802 (Not Given - Provider: Steffany Mishra, RN - Reason: Order Parameters not met)1501 (Not Given - Provider: Steffany Mishra RN - Reason: Order Parameters not met) vitamin B complex/vitamin C/folic acid (NEPHRONEX) oral liquid 5 mL (CANCELED) 5 mL, Per NG tube, DAILY, First dose on Thu05/06/24 at 0900, Until Discontinued 0830 (Given - Provider: Ebony Fuentes RN) 0842 (Given - Provider: Ebony Fuetnes RN) vitamin C/B complex/folic acid (VIRT-CAPS) capsule 1 mg 1 mg (1 capsule), Oral, DAILY, First dose on Thu05/18/24 at 0900, Until Discontinued 0801 (Given - Provider: Steffany Mishra RN) Water liquid (free water) 100 mL 100 mL, Per NG tube, EVERY 4 HOURS, First dose (after last modification) on 05/14/24 at 1000, Until Discontinued, For tube patency. 0156 (Given - Provider: Lizett Mckeon RN - Comment: per pump)0547 (Given - Provider: Lizett Mckeon RN - Comment: per pump)1004 (Given - Provider: Ebony Fuentes RN)1325 (Given - Provider: Ebony Fuentes RN)1742 (Given - Provider: Ginger Vance RN)2133 (Given - Provider: Linda Kennedy RN) 0050 (Given - Provider: Linda Kennedy RN)0535 (Given - Provider: Linda Kennedy RN)0904 (Given - Provider: Ebony Fuentes RN)1323 (Given - Provider: Ebony Fuentes RN)1720 (Given - Provider: Ebony Fuentes RN)2050 (Not Given - Provider: Linda Kennedy RN - Reason: Order Parameters not met - Comment: no NG in place) 0027 (Not Given - Provider: Linda Kennedy RN - Reason: Order Parameters not met - Comment: NG tube not present)0522 (Not Given - Provider: Linda Kennedy RN - Reason: Order Parameters not met)0803 (Not Given - Provider: Steffany Mishra RN - Reason: Order Parameters not met)1325 (Not Given - Provider: Steffany Mishra RN - Reason: Order Parameters not met)1800 (Canceled Entry - Provider: System Discharge - Comment: Automatically canceled at discontinue of medication order) Continuous Medication Order 05/16/2024 05/17/2024 05/18/2024 Nepro/CarbSteady LIQD Nasogastric, CONTINUOUS, Starting on 05/07/24 at 1100, Until Thu05/18/24 at 1837, Dosing: Continuous, Starting rate (mL/hr): 10, Advance by (mL/hr): 10, Every ____ hours: 8, Goal rate (mL/hr): 35 0825 (Rate/Dose Verify - Provider: Ebony Fuentes RN)1752 (New Feeding/Supplement - Provider: Ginger Vance RN)2353 (Rate/Dose Verify - Provider: Linda Kennedy RN) 0527 (Rate/Dose Verify - Provider: Linda Kennedy RN)0842 (Rate/Dose Verify - Provider: Ebony Fuentes RN)1719 (New Feeding/Supplement - Provider: Ebony Fuentes RN)1720 (Stopped - Provider: Ebony Fuentse RN - Comment: NG clogged, unable to place new MD NAKUL aware) PRN Medication Order 05/16/2024 05/17/2024 05/18/2024 Acetaminophen (TYLENOL) tablet 650 mg 650 mg, Oral, EVERY 4 HOURS NEEDED, Starting on 05/16/24 at 1328, Until Thu05/18/24 at 1837, Mild Pain, Moderate Pain, Oral temp > 100.4 F, Maximum dose of acetaminophen is 4000 mg from all sources in 24 hours. 1741 (Given - Provider: Ginger Vance RN) 0842 (Given - Provider: Ebony Fuentes RN) bisacodyl (DULCOLAX) suppository 10 mg 10 mg, Rectal, DAILY NEEDED, Starting on 05/07/24 at 0800, Until Thu05/18/24 at 1837, Constipation 2nd Line guaiFENesin (ROBITUSSIN) oral solution 200 mg 200 mg, Oral, EVERY 6 HOURS NEEDED, Starting on 05/07/24 at 0734, Until Thu05/18/24 at 1837, Cough hydrALAZINE (APRESOLINE) injection 5 mg 5 mg, Intravenous, EVERY 4 HOURS NEEDED, Starting on Tu05/10/24 at 0638, Until Thu05/18/24 at 1837, SBP > 160 mmHg Ipratropium-albuterol (DUONEB) 0.5-2.5 (3) MG/3ML nebulizer solution 3 mL 3 mL, Nebulization, EVERY 6 HOURS NEEDED, Starting on Thu05/04/24 at 2057, Until Thu05/18/24 at 1837, Shortness of Breath, Cough, Breathing Treatment, Respiratory Distress, Wheezing Phenol (CHLORASEPTIC) 1.4 % oral spray 2 spray 2 spray, Mouth/Throat, NEEDED, Starting on Thu05/11/24 at 1132, Until Thu05/18/24 at 1837, Sore Throat, Patient may self-administer. Senna (SENOKOT) tablet 8.6 mg 8.6 mg, Per NG tube, EVERY 12 HOURS NEEDED, Starting on Thu05/07/24 at 0730, Until Thu05/18/24 at 1837, Constipation 1st Line Linked Groups Order Group 1: apixaban (ELIQUIS) tablet 5 mgJump to med 5 mg, Oral, EVERY 12 HOURS, First dose (after last modification) on Thu05/17/24 at 2215, Until Discontinued, Due to the rapid onset of action of apixaban, no overlap is needed with other anticoagulants (e.g. enoxaparin, heparin)., Indications: Venous Thromboembolism Inactive Administered Medications - up to 3 most recent administrations Administered Medications (un recognized section and content) Medication Order MAR Action Action Date Dose Rate Site lidocaine (PF) 10 mg/mL (1 %) 100 mg injection (XYLOCAINE) 100 mg, OTHER, ONCE, 1 dose, On Thu05/18/23 at 1330 Given by [facility] 05/18/2023 1:26 PM EST 100 mg lidocaine (PF) 20 mg/mL (2 %) 200 mg injection (XYLOCAINE) 200 mg, OTHER, ONCE, 1 dose, On Thu05/18/23 at 1330 Given by [facility] 05/18/2023 1:26 PM EST 200 mg methylPREDNISolone acetate 40 mg injection (DEPO-Medrol) 40 mg, OTHER, ONCE, 1 dose, On Thu05/18/23 at 1330 Given by [facility] 05/18/2023 1:26 PM EST 40 mg Inactive Administered Medications - up to 3 most recent administrations Medication Order MAR Action Action Date Dose Rate Site 0.9% NaCl 10 mL flush 10 mL, OTHER, ONCE, 1 dose, On Thu07/15/23 at 0900 Given by [facility] 07/15/2023 9:10 AM EDT 10 mL bupivacaine(PF) 0.75 % (7.5 mg/mL) 7.5 mg injection (MARCAINE PF) 7.5 mg, OTHER, ONCE, 1 dose, On Thu07/15/23 at 0900 Given by [facility] 07/15/2023 9:10 AM EDT 7.5 mg lidocaine (PF) 20 mg/mL (2 %) 200 mg injection (XYLOCAINE) 200 mg, OTHER, ONCE, 1 dose, On Thu07/15/23 at 0900 Given by [facility] 07/15/2023 9:10 AM EDT 200 mg methylPREDNISolone acetate 40 mg injection (DEPO-Medrol) 40 mg, OTHER, ONCE, 1 dose, On Thu07/15/23 at 0900 Given by [facility] 07/15/2023 9:10 AM EDT 40 mg INFORMATION SOURCE (unrecogn ized section and content) DATE CREATED AUTHOR 12/19/2023 [facility] DATE CREATED AUTHOR AUTHOR'S ORGANIZ ATION 05/11/2024 [employer] DATE CREATED AUTHOR AUTHOR'S ORGANIZ ATION 05/22/2024 [facility] DATE CREATED AUTHOR AUTHOR'S ORGANIZ ATION 09/24/2024 [facility] DATE CREATED AUTHOR AUTHOR'S ORGANIZ ATION 09/25/2024 [facility] FOR RECORDS PERTAINING TO PATIENTS WHO [...] BE BASED ON THE PRIMARY CLINICAL RECORDS. [facility] [employer] [facility]. provides no warranty or guarantee of the accuracy or completeness of information in this document.
[2024-09-28 23:35] LABS: Troponin T High Sensitivity 41 ng/L (<=14)
[2024-09-28 23:41] LABS: Anion Gap 16 (5-15); BUN 104 mg/dL (4-19); BUN/Creat Ratio 26.2 RATIO (10-20); Calcium,Total 8.2 mg/dL (7.6-11.0); Carbon Dioxide 11.1 mmol/L (21.0-32.0); Chloride 113 mmol/L (98-108); Estimated Creatinine Clearance 12.83 ml/min (50-250); Glucose 170 mg/dL (70-99); Potassium 5.4 mmol/L (3.3-5.1)
[2024-09-28] MEDS: APIXABAN 2.5 MG TABLET (WCH) PO (23:41)
[2024-09-28] MEDS: 0.9% Normal Saline (1000mL) 1,000 ML 75 ML IV (23:41)
[2024-09-29] VITALS (8 sets, daily range): BP systolic 86–128; BP diastolic 57–81; PULSE 60–115; RESP 16–20; TEMP 36.2–37.2; O2SAT 94–100; BMI 44.6
[2024-09-29] MEDS: Insulin Lispro 10 UNIT in Syringe 0 ML 6 UNIT IV (01:10)
[2024-09-29] MEDS: 0.9% Saline Lock 10 ML Syringe IV (01:11)
[2024-09-29] MEDS: Albuterol *CONC* 2.5mg/0.5mL VIAL.NEB. 10 MG INHALATION (01:30)
[2024-09-29 05:28] LABS: Anion Gap 17 (5-15); BUN 104 mg/dL (4-19); BUN/Creat Ratio 26.7 RATIO (10-20); Calcium,Total 8.0 mg/dL (7.6-11.0); Carbon Dioxide 12.4 mmol/L (21.0-32.0); Chloride 112 mmol/L (98-108); Estimated Creatinine Clearance 13.06 ml/min (50-250); Glucose 147 mg/dL (70-99); Potassium 5.1 mmol/L (3.3-5.1)
[2024-09-29 05:28] LABS: AST(SGOT) 561 U/L (<=31); Alanine Aminotransfer ALT/SGPT 485 U/L (<=34); Albumin, Serum 2.9 g/dL (3.4-4.8); Alkaline Phosphatase 148 U/L (35-104); Anion Gap 16 (5-15); BUN 103 mg/dL (4-19); BUN/Creat Ratio 27.2 RATIO (10-20); Calcium,Total 8.0 mg/dL (7.6-11.0); Carbon Dioxide 13.6 mmol/L (21.0-32.0); Chloride 111 mmol/L (98-108); Estimated Creatinine Clearance 13.47 ml/min (50-250); Globulin 2.4 g/dL (2.2-4.2); Glucose 62 mg/dL (70-99); Potassium 4.7 mmol/L (3.3-5.1); Troponin T High Sens 4 HR 44 ng/L (<=14)
[2024-09-29 05:44] LABS: Hematocrit 29.4 % (37-47); Hemoglobin 8.9 g/dL (12.0-15.0); Immature Granulocytes Count 0.010 X10^3/uL (0.0-0.0); Mean Corp Hgb Conc 30.3 g/dL (32-36); Mean Corpuscular Volume 105.0 fL (81-99); Mean Platelet Vol. 13.8 fl (6.2-12.0); NRBC Flagged by Analyzer 0 % (0-5); Platelet Count 189 K/mm3 (150-450); RBC Distribution Width CV 15.4 % (11.6-14.6); RBC Distribution Width SD 59.1 fl (35.1-43.9); Red Blood Count 2.80 M/mm3 (4.2-5.4); White Blood Count 5.5 K/mm3 (4.4-11.0)
[2024-09-29 06:11] LABS: Troponin T High Sens 2 HR 55 ng/L (<=14)
--- NOTE | 2024-09-29 07:52 | PCM.PN.HOSP ---
Reason for Visit Reason for Visit: Diagnoses Acute kidney failure, unspecified (09/28/24) Subjective Subjective Still with tremulousness. cannot hold on to things at this time. Feeling weak. Objective Data Objective Data Vital Signs: Vital Signs Temp Pulse Resp BP Pulse Ox O2 Del Method O2 Flow Rate 36.6 C 70 18 111/81 H 100 Room Air 2 09/29/24 03:30 09/29/24 03:30 09/29/24 03:30 09/29/24 03:30 09/29/24 03:30 09/29/24 03:30 09/29/24 01:00 Oxygen Flow Rate (L/min) 2 Oxygen Delivery Method Room Air Weight: 110.8 kg Body Mass Index (BMI) 44.6 Intake & Output: Intake and Output for Last 24 Hours 09/27/24 09/28/24 09/29/24 23:59 23:59 23:59 Intake Total 2280 / 2280 1400 / 1400 Output Total 1300 / 1300 Balance 2280 / 1480 100 / 100 Lab / Micro Data 09/29/24 03:28 09/29/24 03:28 Labs: Laboratory Results - last 24 hr 09/28/24 17:51: WBC 7.6, RBC 2.88 L, Hgb 9.2 L, Hct 30.0 L, MCV 104.2 H, MCH 31.9, MCHC 30.7 L, RDW Std Deviation 58.2 H, RDW Coeff of Parris 15.5 H, Plt Count 206, MPV 13.2 H, Immature Gran % (Auto) 0.400, Neut % (Auto) 66.9, Lymph % (Auto) 20.1, Bracken % (Auto) 8.7, Eos % (Auto) 3.6, Baso % (Auto) 0.3, Absolute Neuts (auto) 5.1, Absolute Lymphs (auto) 1.52, Nucleated RBC % 0, Sodium 139, Potassium 6.0 H*, Chloride 113 H, Carbon Dioxide 11.0 L, Anion Gap 15, BUN 111 H*, Creatinine 4.15 H, Est GFR (MDRD) Non-Af 10 L, BUN/Creatinine Ratio 26.7 H, Glucose 129 H, Lactic Acid < 1.0, Calcium 7.9, Magnesium 3.1 H, Total Bilirubin 0.20, AST 289 H, ALT 351 H, Alkaline Phosphatase 130 H, Troponin T High Sens 44 H, Total Protein 5.9, Albumin 3.1 L, Globulin 2.7, Albumin/Globulin Ratio 1.1, Lipase 54 09/28/24 18:56: Total Creatine Kinase 27 09/28/24 19:40: Urine Color Straw, Urine Clarity Turbid, Urine pH 6.0, Ur Specific [place] 1.015, Urine Protein 15 H, Urine Glucose (UA) Normal, Urine Ketones Negative, Urine Occult Blood 25 H, Urine Nitrite Negative, Urine Bilirubin Negative, Urine Urobilinogen Normal, Ur Leukocyte Esterase 500 H, Urine RBC 0-5 SEEN, Urine WBC >100 SEEN, Ur Squamous Epith Cells 0-5 SEEN, Urine Bacteria 3+, Urine Mucus 0 SEEN, Ur Random Sodium 79, Urine Creatinine 34.40 09/28/24 21:34: POC Glucose 145 H 09/28/24 22:57: Sodium 139, Potassium 5.4 H, Chloride 113 H, Carbon Dioxide 11.1 L, Anion Gap 16 H, BUN 104 H*, Creatinine 3.97 H, Estim Creat Clear Calc 12.83 L, Est GFR (MDRD) Non-Af 11 L, BUN/Creatinine Ratio 26.2 H, Glucose 170 H, Calcium 8.2, Troponin T High Sens 41 H D 09/29/24 01:08: POC Glucose 143 H 09/29/24 01:09: Sodium 141, Potassium 5.1, Chloride 112 H, Carbon Dioxide 12.4 L, Anion Gap 17 H, BUN 104 H*, Creatinine 3.90 H, Estim Creat Clear Calc 13.06 L, Est GFR (MDRD) Non-Af 11 L, BUN/Creatinine Ratio 26.7 H, Glucose 147 H, Calcium 8.0, Troponin T Hi Sens 2 Hr 55 H* 09/29/24 03:28: WBC 5.5, RBC 2.80 L, Hgb 8.9 L, Hct 29.4 L, MCV 105.0 H, MCH 31.8, MCHC 30.3 L, RDW Std Deviation 59.1 H, RDW Coeff of Parris 15.4 H, Plt Count 189, MPV 13.8 H, Immature Gran % (Auto) 0.200, Neut % (Auto) 53.5, Lymph % (Auto) 32.2, Bracken % (Auto) 9.8, Eos % (Auto) 3.8, Baso % (Auto) 0.5, Absolute Neuts (auto) 2.9, Absolute Lymphs (auto) 1.77, Nucleated RBC % 0, Sodium 141, Potassium 4.7, Chloride 111 H, Carbon Dioxide 13.6 L, Anion Gap 16 H, BUN 103 H*, Creatinine 3.78 H, Estim Creat Clear Calc 13.47 L, Est GFR (MDRD) Non-Af 11 L, BUN/Creatinine Ratio 27.2 H, Glucose 62 L, Calcium 8.0, Total Bilirubin 0.18, AST 561 H, ALT 485 H, Alkaline Phosphatase 148 H, Troponin T Hi Sens 4Hr 44 H, Total Protein 5.3 L, Albumin 2.9 L, Globulin 2.4, Albumin/Globulin Ratio 1.2 09/29/24 04:18: POC Glucose 52 L 09/29/24 04:35: POC Glucose 59 L 09/29/24 04:52: POC Glucose 89 09/29/24 06:14: POC Glucose 87 Radiography Diagnostic Testing: Radiology Impression Knee X-Ray 09/28/24 15:30 IMPRESSION: No obvious acute fracture. Reading Location: [facility] Brain CT 09/28/24 17:00 IMPRESSION: No acute intracranial process. Consider MR if symptoms persist. Reading Location: [facility] Knee X-Ray 09/28/24 17:05 IMPRESSION: No obvious acute fracture. Reading Location: [facility] Renal Ultrasound 09/28/24 20:05 IMPRESSION: NORMAL RENAL ULTRASOUND. Reading Location: [facility] Physical Exam Const alert and no apparent distress HEENT head/scalp atraumatic and moist oral mucous membranes Resp normal respiratory effort, no retractions, no use of accessory muscles and clear to auscultation bilaterally Cardio regular rate, regular rhythm, S1 normal heart sound and S2 normal heart sound GI normal to inspection, nondistended, normoactive bowel sounds, soft to palpation, non-tender and non-distended Extremity normal to inspection and full ROM Neuro moves all extremities Neuro Narrative: upper extremity tremulousness. Assessment & Plan Assessment/Plan (1) JOSE (acute kidney injury): PLAN: Baseline creatinine 1.86 (from 08/22/2024). Improving with IVF. Went from 4.15 to 3.78. Nephrology on consult. Renal US negative. hold furosemide (2) Encephalopathy: QUALIFIERS: Encephalopathy type: unspecified encephalopathy Qualified Code(s): G93.40 - Encephalopathy, unspecified PLAN: resolved. head CT negative. (3) UTI (urinary tract infection): PLAN: previously had E. coli. Severe allergies with cefazolin. Will add meropenem and adjust abx according to sensitivities. (4) Hyperkalemia: PLAN: received medication which has improved the potassium likley 2/2 JOSE continue to monitor. (5) Tremulousness: PLAN: New onset. I suspect due to gabapentin toxicity in JOSE Hold gabapentin and continue IVF to flush out toxins. PLAN: Plan chronic conditions: pafib: carvedilol and apixaban anemia anxiety/depression: seizure disorder: lacosamide hypothyroidism: levothyroxine VTE prophylaxis: not indicated as already anticoagulated. Charges/Coding Visit Charges Inpatient E&M: 37116 Subs Hosp L3
[2024-09-29] MEDS: APIXABAN 2.5 MG TABLET (WCH) PO ×2 (10:14→10:27)
[2024-09-29] MEDS: Meropenem 500 MG in 0.9% Normal Saline (50mL MB+) 50 ML 100 MG IV ×2 (10:28→22:52)
[2024-09-29] MEDS: 0.9% Normal Saline (1000mL) 1,000 ML 100 ML IV (14:00)
--- NOTE | 2024-09-29 16:00 | CASEMGMT ---
KEVIN MALONE Face to Face with patient for initial transition planning/care coordination assessment. KEVIN MALONE introduced self and role at [facility]. Patient lying in bed, alert and oriented, friend at bedside. Patient willing to participate in assessment and is able to answer all questions appropriately. Care providers, pharmacy, and demographics verified. Strata: 3 PCP: [facility] Specialists: Manuel, bending shed worker; Monie, plastic; Ambrocio, weatherization administrator; Mary, urologist; Homer, neurologist; Preferred Pharmacy: [facility] Insurance: [facility] supplement Prescription Benefit: yes Living Will/HPOA: yes, Cayla Sawyer LNOK: son Living Arrangements: Patient lives with friend Cayla in a 2 story home with 5 steps and railing or stair lift to enter. Patient state she was independent at home prior to current illness Transportation: Cayla DME/HHC: Patient has shower chair, cane, lift chair, grab bars, walker, rollator, wheelchair at home. Patient has previously been to and [facility]. Patient states she is active with [facility]. Patient wishes to discharge to [facility] or SNF at discharge. KEVIN MALONE provided patient with SNF list. Patient also interested in TCU. KEVIN MALONE asked patient and friend to review list and provide additional preferences. Patient states she has no further needs or concerns at this time. KEVIN MALONE updated SW. MALONE to follow for discharge planning needs that may arise. Disposition Plan: [facility] vs SNF pending acceptance. Charlette CUMMINGS, RN, CM
--- NOTE | 2024-09-29 17:59 | PCM.CONS.R ---
Assessment & Plan Assessment/Plan (1) JOSE (acute kidney injury): PLAN: CKD stage IIIb/IV. Prior to this admission, creatinine has ranged between 1.8-2.0. Came in with a creatinine of 4.1, somewhat better at 3.7 today. As per records, urine output is present. Renal ultrasound without any hydronephrosis. Urine analysis with few leukocytes. Blood pressure is acceptable. As per admission records, she has had poor oral intake for last several days. Most likely volume depletion related. Continue IV fluids. Acidosis. Elevated gap. Presumably due to JOSE. should improve with improving renal function HPI Consult Data Date of Consult: 09/29/24 HPI Narrative Reason for Consultation: JOSE HPI Narrative: MARI LOPEZ, is a 84 F who presents To the hospital with generalized weakness. Nephrology on consultation in view of acute renal failure. She is known to us from prior admission, at that time she had acute renal failure requiring temporary dialysis. Eventually recovered renal function. Recent baseline creatinine has been between 1.8-2.0. Came in with generalized weakness, other constitutional symptoms. She was somewhat sleepy and when I try to ask her question she says she wants to sleep for now. I asked her if she started any new medications recently and she says now. She says she has been voiding. Does not offer any other complaints today. [facility] Medical History (Updated 09/29/24 @ 13:[address] Russell Todd, DO) PAF (paroxysmal atrial fibrillation) Wears glasses Post-menopausal Open wound Arthritis Walker as ambulation aid Bladder disease History of renal disease Anemia DVT (deep venous thrombosis) Low iron High cholesterol Back pain Seizures Hoarseness Non-smoker CPAP (continuous positive airway pressure) dependence Leg cramps History of edema History of echocardiogram History of stress test Cardiology follow-up encounter Urinary incontinence Osteopenia Spinal osteophytosis Status epilepticus Complicated urinary tract infection Osteoporosis Osteoarthritis Venous insufficiency of both lower extremities Hypothyroidism Pulmonary hypertension Diastolic dysfunction Elevated parathyroid hormone Metabolic acidosis Lymphedema Preop cardiovascular exam H/O hemorrhoids (HFpEF) heart failure with preserved ejection fraction History of pulmonary embolus (PE) COVID-19 (01/19/21) MRSA (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 Abdominal pain DVT (deep venous thrombosis) GERD (gastroesophageal reflux disease) Insomnia Obstructive sleep apnea Essential (primary) hypertension Incomplete left bundle branch block Morbid obesity with BMI of 45.0-49.9, adult Home Medications ?Medication ?Instructions ?Recorded ?Last Taken ?Type levonorgestrel (Mirena) 1 mcg intrauterine ONCE . 07/25/21 Unknown History nitroglycerin 0.4 mg sublingual 0.4 mg sublingual Q5M PRN chest 06/27/22 Unknown Rx tablet pain #30 tabs polyethylene glycol 3350 17 gram 17 g PO DAILY bowel mobility #30 ea 06/09/23 09/28/24 Rx oral powder packet fluorometholone 0.1 % eye 1 drp ophthalmic (eye) BID eyes 02/24/24 09/27/24 History drops,suspension atorvastatin 40 mg tablet 40 mg PO QHS cholesterol 05/18/24 09/28/24 History ferrous sulfate 324 mg (65 mg 324 mg PO DAILY Supplement 05/18/24 09/28/24 History iron) tablet,delayed release levothyroxine 125 mcg tablet 125 mcg PO DAILY thyroid 05/18/24 09/28/24 History acetaminophen 325 mg tablet 650 mg (2 x 325 mg) PO TID #1 TAB 06/09/24 09/27/24 Rx bisacodyl 10 mg rectal suppository 10 mg MT X1 PRN Constipation #1 ea 06/09/24 Unknown Rx calcium acetate(phosphat bind) 667 667 mg PO TIDCM #1 cap 06/09/24 09/28/24 Rx mg capsule magnesium hydroxide 400 mg/5 mL 30 ml PO X1 PRN Constipation #30 mL 06/09/24 09/28/24 Rx oral suspension mirtazapine 15 mg tablet 7.5 mg (1/2 x 15 mg) PO 2000 #1 TAB 06/09/24 09/28/24 Rx sennosides 8.6 mg-docusate sodium 2 tab PO BID #1 TAB 06/09/24 Unknown Rx 50 mg tablet (Stimulant Laxative Plus) cholecalciferol (vitamin D3) 25 50 mcg PO DAILY supplement 09/05/24 09/27/24 History mcg (1,000 unit) capsule furosemide 40 mg tablet 40 mg PO Q OTHER DAY Diuretic 09/05/24 09/28/24 History lacosamide 100 mg tablet 100 mg PO BID Seizure control 09/05/24 09/28/24 History benzonatate 100 mg capsule 100 mg PO TID cough 09/06/24 09/27/24 History carvedilol 6.25 mg tablet 6.25 mg PO Q12H Blood pressure 09/28/24 09/28/24 History gabapentin 300 mg capsule 300 mg PO TID Neuropathy 09/28/24 09/28/24 History guaifenesin 600 mg tablet, 600 mg PO BID Cough 09/28/24 09/28/24 History extended release 12 hr multivitamin 1 tab PO DAILY Supplement 09/28/24 09/28/24 History prednisone 20 mg tablet 40 mg PO DAILY Steroid 09/28/24 09/27/24 History zinc gluconate 50 mg tablet 50 mg PO DAILY supplement 09/28/24 09/28/24 History zolpidem 5 mg tablet 10 mg PO QHS Insomnia 09/28/24 09/28/24 History Allergy/AdvReac Type Severity Reaction Status Date / Time cefazolin (From Kefzol) Allergy Severe hives/difficulty Verified 09/28/24 22:23 swallowing ibuprofen Allergy Unknown Rash Verified 09/28/24 22:23 peanut Allergy Anaphylaxis Verified 09/28/24 22:23 Sulfa (Sulfonamide Allergy Unknown Verified 09/28/24 22:23 Antibiotics) sulfamethoxazole (From Allergy Other Verified 09/28/24 22:23 Bactrim) trimethoprim (From Bactrim) Allergy Other Verified 09/28/24 22:23 Family History (Updated 09/28/24 @ 20:[address] Michelle Gallardo MD) Mother Cancer uterine Father No problems noted. Surgical History History of esophagogastroduodenoscopy (EGD) Hx of colonoscopy Hx of left cataract extraction History of dental surgery History of open reduction and internal fixation (ORIF) procedure History of cardiac catheterization Hx laparoscopic cholecystectomy H/O shoulder replacement History of left heart catheterization (08/01/22) History of dilatation and curettage History of hysteroscopy History of bilateral knee replacement History of herniorrhaphy Status post debridement History of open reduction and internal fixation (ORIF) procedure H/O hemorrhoidectomy History of gastric bypass Social History household members: other details: She has a roomate housing: house number of children: 1 current occupational status: retired pets and animals: Yes pets and animals: dog(s) Smoking Status: Never smoker alcohol intake: never substance use type: does not use caffeine: Yes Type: coffee Number of servings: 3 ROS ROS Narrative negative except above Physical Exam Narrative no obvious distress no pallor no icterus no JVD s1s2 no murmurs lungs clear abdomen soft no organomegaly no edema Lab / Micro Data 09/29/24 03:28 09/29/24 03:28 Labs: Laboratory Results - last 24 hr 09/28/24 17:51: WBC 7.6, RBC 2.88 L, Hgb 9.2 L, Hct 30.0 L, MCV 104.2 H, MCH 31.9, MCHC 30.7 L, RDW Std Deviation 58.2 H, RDW Coeff of Parris 15.5 H, Plt Count 206, MPV 13.2 H, Immature Gran % (Auto) 0.400, Neut % (Auto) 66.9, Lymph % (Auto) 20.1, [place] % (Auto) 8.7, Eos % (Auto) 3.6, Baso % (Auto) 0.3, Absolute Neuts (auto) 5.1, Absolute Lymphs (auto) 1.52, Nucleated RBC % 0, Sodium 139, Potassium 6.0 H*, Chloride 113 H, Carbon Dioxide 11.0 L, Anion Gap 15, BUN 111 H*, Creatinine 4.15 H, Est GFR (MDRD) Non-Af 10 L, BUN/Creatinine Ratio 26.7 H, Glucose 129 H, Lactic Acid < 1.0, Calcium 7.9, Magnesium 3.1 H, Total Bilirubin 0.20, AST 289 H, ALT 351 H, Alkaline Phosphatase 130 H, Troponin T High Sens 44 H, Total Protein 5.9, Albumin 3.1 L, Globulin 2.7, Albumin/Globulin Ratio 1.1, Lipase 54 09/28/24 18:56: Total Creatine Kinase 27 09/28/24 19:40: Urine Color Straw, Urine Clarity Turbid, Urine pH 6.0, Ur Specific [place] 1.015, Urine Protein 15 H, Urine Glucose (UA) Normal, Urine Ketones Negative, Urine Occult Blood 25 H, Urine Nitrite Negative, Urine Bilirubin Negative, Urine Urobilinogen Normal, Ur Leukocyte Esterase 500 H, Urine RBC 0-5 SEEN, Urine WBC >100 SEEN, Ur Squamous Epith Cells 0-5 SEEN, Urine Bacteria 3+, Urine Mucus 0 SEEN, Ur Random Sodium 79, Urine Creatinine 34.40 09/28/24 21:34: POC Glucose 145 H 09/28/24 22:57: Sodium 139, Potassium 5.4 H, Chloride 113 H, Carbon Dioxide 11.1 L, Anion Gap 16 H, BUN 104 H*, Creatinine 3.97 H, Estim Creat Clear Calc 12.83 L, Est GFR (MDRD) Non-Af 11 L, BUN/Creatinine Ratio 26.2 H, Glucose 170 H, Calcium 8.2, Troponin T High Sens 41 H D 09/29/24 01:08: POC Glucose 143 H 09/29/24 01:09: Sodium 141, Potassium 5.1, Chloride 112 H, Carbon Dioxide 12.4 L, Anion Gap 17 H, BUN 104 H*, Creatinine 3.90 H, Estim Creat Clear Calc 13.06 L, Est GFR (MDRD) Non-Af 11 L, BUN/Creatinine Ratio 26.7 H, Glucose 147 H, Calcium 8.0, Troponin T Hi Sens 2 Hr 55 H* 09/29/24 03:28: WBC 5.5, RBC 2.80 L, Hgb 8.9 L, Hct 29.4 L, MCV 105.0 H, MCH 31.8, MCHC 30.3 L, RDW Std Deviation 59.1 H, RDW Coeff of Parris 15.4 H, Plt Count 189, MPV 13.8 H, Immature Gran % (Auto) 0.200, Neut % (Auto) 53.5, Lymph % (Auto) 32.2, [place] % (Auto) 9.8, Eos % (Auto) 3.8, Baso % (Auto) 0.5, Absolute Neuts (auto) 2.9, Absolute Lymphs (auto) 1.77, Nucleated RBC % 0, Sodium 141, Potassium 4.7, Chloride 111 H, Carbon Dioxide 13.6 L, Anion Gap 16 H, BUN 103 H*, Creatinine 3.78 H, Estim Creat Clear Calc 13.47 L, Est GFR (MDRD) Non-Af 11 L, BUN/Creatinine Ratio 27.2 H, Glucose 62 L, Calcium 8.0, Total Bilirubin 0.18, AST 561 H, ALT 485 H, Alkaline Phosphatase 148 H, Troponin T Hi Sens 4Hr 44 H, Total Protein 5.3 L, Albumin 2.9 L, Globulin 2.4, Albumin/Globulin Ratio 1.2 09/29/24 04:18: POC Glucose 52 L 09/29/24 04:35: POC Glucose 59 L 09/29/24 04:52: POC Glucose 89 09/29/24 06:14: POC Glucose 87 09/29/24 12:34: POC Glucose 81 Imaging Radiology Impression Knee X-Ray 09/28/24 15:30 IMPRESSION: No obvious acute fracture. Reading Location: [facility] Knee X-Ray 09/28/24 17:05 IMPRESSION: No obvious acute fracture. Reading Location: [facility] Renal Ultrasound 09/28/24 20:05 IMPRESSION: NORMAL RENAL ULTRASOUND. Reading Location: [facility]
[2024-09-30 04:38] VITALS: BP 106/72; PULSE 109; RESP 18; TEMP 36.2; O2SAT 97
[2024-09-30] MEDS: 0.9% Normal Saline (1000mL) 1,000 ML 100 ML IV ×2 (04:40→14:46)
[2024-09-30 05:07] VITALS: BMI 45.7
[2024-09-30 06:01] LABS: Hematocrit 28.0 % (37-47); Hemoglobin 8.7 g/dL (12.0-15.0); Immature Granulocytes Count 0.030 X10^3/uL (0.0-0.0); Mean Corp Hgb Conc 31.1 g/dL (32-36); Mean Corpuscular Volume 103.3 fL (81-99); Mean Platelet Vol. 13.3 fl (6.2-12.0); NRBC Flagged by Analyzer 0 % (0-5); Platelet Count 195 K/mm3 (150-450); RBC Distribution Width CV 15.6 % (11.6-14.6); RBC Distribution Width SD 59.2 fl (35.1-43.9); Red Blood Count 2.71 M/mm3 (4.2-5.4); White Blood Count 6.5 K/mm3 (4.4-11.0)
[2024-09-30 06:30] LABS: Anion Gap 12 (5-15); BUN 96 mg/dL (4-19); BUN/Creat Ratio 27.1 RATIO (10-20); Calcium,Total 7.6 mg/dL (7.6-11.0); Carbon Dioxide 14.3 mmol/L (21.0-32.0); Chloride 113 mmol/L (98-108); Estimated Creatinine Clearance 14.64 ml/min (50-250); Glucose 99 mg/dL (70-99); Potassium 5.1 mmol/L (3.3-5.1)
--- NOTE | 2024-09-30 08:25 | PN.HOSP_ITS ---
Reason for Visit Reason for Visit: Diagnoses Hyperkalemia (09/28/24) Encephalopathy, unspecified (09/28/24) Acute kidney failure, unspecified (09/28/24) Urinary tract infection, site not specified (09/28/24) Tremor, unspecified (09/28/24) Subjective Subjective Feeling better at this time. Tremors are pretty much gone now. Has never had tremors before. Is complaining of left knee pain. Stated that when she fell prior to coming in here her knees just buckled and did not hyperextend as far she understands but just landed on her knees and has pain in the posterior aspect of her knee. Objective Data Objective Data Vital Signs: Vital Signs Temp Pulse Resp BP Pulse Ox O2 Del Method O2 Flow Rate 36.2 C L 109 H 18 106/72 97 Room Air 2 09/30/24 04:38 09/30/24 04:38 09/30/24 04:38 09/30/24 04:38 09/30/24 04:38 09/30/24 04:39 09/29/24 01:00 Oxygen Flow Rate (L/min) 2 Oxygen Delivery Method Room Air Weight: 113.5 kg Body Mass Index (BMI) 45.7 Intake & Output: Intake and Output for Last 24 Hours 09/28/24 09/29/24 09/30/24 23:59 23:59 23:59 Intake Total 2280 / 2280 3868.33 / 3868.33 111.67 / 111.67 Output Total 3650 / 3650 600 / 600 Balance 2280 / 1480 218.33 / 218.33 -488.33 / -488.33 Lab / Micro Data 09/30/24 05:48 09/30/24 05:48 Labs: Laboratory Results - last 24 hr 09/29/24 12:34: POC Glucose 81 09/30/24 05:48: WBC 6.5, RBC 2.71 L, Hgb 8.7 L, Hct 28.0 L, MCV 103.3 H, MCH 32.1 H, MCHC 31.1 L, RDW Std Deviation 59.2 H, RDW Coeff of Parris 15.6 H, Plt Count 195, MPV 13.3 H, Immature Gran % (Auto) 0.500, Neut % (Auto) 57.4, Lymph % (Auto) 28.6, [place] % (Auto) 8.9, Eos % (Auto) 4.3, Baso % (Auto) 0.3, Absolute Neuts (auto) 3.7, Absolute Lymphs (auto) 1.86, Nucleated RBC % 0, Sodium 140, Potassium 5.1, Chloride 113 H, Carbon Dioxide 14.3 L, Anion Gap 12, BUN 96 H, C reatinine 3.53 H, Estim Creat Clear Calc 14.64 L, Est GFR (MDRD) Non-Af 12 L, B UN/Creatinine Ratio 27.1 H, Glucose 99, Calcium 7.6 Physical Exam Const alert and no apparent distress HEENT head/scalp atraumatic and moist oral mucous membranes Resp normal respiratory effort, no retractions, no use of accessory muscles and clear to auscultation bilaterally Cardio regular rate, regular rhythm, S1 normal heart sound and S2 normal heart sound GI normal to inspection, nondistended, normoactive bowel sounds, soft to palpation, non-tender and non-distended Extremity Extremity Narrative: Left knee shows extensive surgical changes with old healed skin graft over her knee. Patient has no sensation in the anterior aspect of her knee due to the prior surgery and skin graft. She does have some reproducible pain posteriorly her. Slight bogginess but no warmth appreciated. Does have limited range of motion due to discomfort. Neuro Sensorium / Orientation: awake and alert Assessment & Plan Assessment/Plan (1) JOSE (acute kidney injury): PLAN: Baseline creatinine 1.86 (from 08/22/2024). Improving with IVF. Went from 4.15 to 3.53. Nephrology on consult. Renal US negative. continue to hold furosemide Suspect prerenal plus minus component of ATN. Patient had not been having good oral intake for the preceding few days prior. No need for renal replacement therapy. (2) Encephalopathy: QUALIFIERS: Encephalopathy type: unspecified encephalopathy Q ualified Code(s): G93.40 - Encephalopathy, unspecified PLAN: resolved. head CT negative. I suspect due to gabapentin toxicity and the backdrop of JOSE. (3) UTI (urinary tract infection): PLAN: previously had E. coli. Severe allergies with cefazolin. Will add meropenem and adjust abx according to sensitivities. UCx thus far showing gram-negative nancy lactose dianeticist (4) Hyperkalemia: PLAN: received medication which has improved the potassium likley 2/2 JOSE continue to monitor. (5) Tremulousness: PLAN: New onset and essentially resolved. I suspect due to gabapentin toxicity in JOSE Hold gabapentin and continue IVF to flush out toxins. I told the patient that I would continue to hold the gabapentin until her kidney function is significantly improved. (6) Left knee pain: PLAN: Posteriorly. No obvious anterior injury appreciated. Patient does have compromised sensation in her knee due to the prior surgeries and skin graft. But there is no warmth appreciated no obvious effusions. I suspect she may have a Butler's cyst or muscle strain. I did review her x-rays with her which shows that she has had extensive surgeries but the knee joint itself appears to be well aligned and the radiology report was normal. 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 Did discuss with her about using narcotics which she was actually okay with. Still have oxycodone as needed but also schedule acetaminophen and Lidoderm patch to her knee. PLAN: Plan chronic conditions: * pafib: carvedilol and apixaban * anemia * anxiety/depression: * seizure disorder: lacosamide * hypothyroidism: levothyroxine VTE prophylaxis: not indicated as already anticoagulated. Disposition: Patient should be ready to go to the transitional care unit on the . Discussed with the patient's friend at bedside with the patient's permission. Charges/Coding Visit Charges Inpatient E&M: 02921 [facility] Hosp L3
[2024-09-30 10:00] VITALS: BP 129/77; PULSE 125; RESP 18; TEMP 36.6; O2SAT 93
--- NOTE | 2024-09-30 10:17 | CASEMGMT ---
SW was informed patient was interested in going to [facility] Rehab. SW met with patient and her friend. Introduced self and role at [facility]. Patient and her friend confirmed they would like Rehab, TCU, and [facility] as the third choice. SW made a referral to Rehab/TCU. Beata MYERS
--- NOTE | 2024-09-30 10:51 | CASEMGMT ---
TCU can take patient. However, patient only has 24 skilled days left. Should patient still be in TCU at day 25 she will switch to private pay which in TCU is $660 per day. Patient could also go to another SNF private pay. SW met with patient. Patient's friend Bhavana was present. SW explained Rehab cannot take patient, but [facility] TCU can accept. SW explained that patient only has 24 skilled days left. SW explained should patient still be in TCU at day 25 she will switch to private pay. SW explained she could also transfer to another SNF private pay. Patient and Bhavana both verbalized understanding and stated patient will be able to, Get herself together by then so it shouldn't be a problem. Beata Gomez VOCATIONAL TECHNICAL EDUCATION DIRECTOR [place]
[2024-09-30] MEDS: APIXABAN 2.5 MG TABLET (WCH) PO ×2 (10:54→22:14)
[2024-09-30] MEDS: Meropenem 500 MG in 0.9% Normal Saline (50mL MB+) 50 ML 100 MG IV ×2 (10:54→22:11)
[2024-09-30] MEDS: Lidocaine 5% Patch 1 PATCH TOPICAL (10:55)
--- NOTE | 2024-09-30 11:39 | PN.RENAL_ITS ---
Subjective Subjective Patient is resting in bed. Family friend at bedside. Denies any nausea, vomiting, no diarrhea. Reports good appetite. Objective Data Objective Data Vital Signs: Vital Signs Temp Pulse Resp BP Pulse Ox O2 Del Method O2 Flow Rate 97.8 F 125 H 18 129/77 H 93 Room Air 2 09/30/24 10:00 09/30/24 10:00 09/30/24 10:00 09/30/24 10:00 09/30/24 10:00 09/30/24 10:00 09/29/24 01:00 Oxygen Flow Rate (L/min) 2 Oxygen Delivery Method Room Air Weight: 113.5 kg Body Mass Index (BMI) 45.7 Intake & Output: Intake and Output for Last 24 Hours 09/28/24 09/29/24 09/30/24 23:59 23:59 23:59 Intake Total 2280 / 2280 3868.33 / 3868.33 111.67 / 111.67 Output Total 3650 / 3650 600 / 600 Balance 2280 / 1480 218.33 / 218.33 -488.33 / -488.33 Lab / Micro Data 09/30/24 05:48 09/30/24 05:48 Labs: Laboratory Results - last 24 hr 09/29/24 12:34: POC Glucose 81 09/30/24 05:48: WBC 6.5, RBC 2.71 L, Hgb 8.7 L, Hct 28.0 L, MCV 103.3 H, MCH 32.1 H, MCHC 31.1 L, RDW Std Deviation 59.2 H, RDW Coeff of Parris 15.6 H, Plt Count 195, MPV 13.3 H, Immature Gran % (Auto) 0.500, Neut % (Auto) 57.4, Lymph % (Auto) 28.6, [place] % (Auto) 8.9, Eos % (Auto) 4.3, Baso % (Auto) 0.3, Absolute Neuts (auto) 3.7, Absolute Lymphs (auto) 1.86, Nucleated RBC % 0, Sodium 140, Potassium 5.1, Chloride 113 H, Carbon Dioxide 14.3 L, Anion Gap 12, BUN 96 H, C reatinine 3.53 H, Estim Creat Clear Calc 14.64 L, Est GFR (MDRD) Non-Af 12 L, B UN/Creatinine Ratio 27.1 H, Glucose 99, Calcium 7.6 Physical Exam Narrative Alert and oriented x 3 no obvious distress s1s2 no murmurs lungs clear abdomen soft no organomegaly no pitting edema Assessment & Plan Assessment/Plan (1) JOSE (acute kidney injury): PLAN: - 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 Prior to this admission, creatinine ranged between 1.8-2.0. Admission Creatinine 4.1, serum creatinine 3.53 mg/dL today. BUN 111--> 96 today. Patient is nonoliguric around 3.6 L urine output yesterday. Renal ultrasound without any hydronephrosis. Urine analysis with few leukocytes. Blood pressure is acceptable. As per admission records, she has had poor oral intake for last several days. Most likely volume depletion related. Continue IV fluids for another day. Labs ordered for a.m. - Acidosis. Presumably due to JOSE. should improve with improving renal function - Assessment and plan reviewed with Dr. Albrecht.
[2024-09-30 14:12] VITALS: BP 121/83; PULSE 112; RESP 17; TEMP 36.8; O2SAT 90
--- NOTE | 2024-09-30 16:20 | CHAPLAIN ---
Type of Pastoral Visit _x__ Initial Visit ___ Follow-up Visit ___ On-call Visit ___ General Patient Visit ___ Spiritual Assessment ___ Family Conference ___ Bereavement ___ Rapid Response ___ Code Blue ___ Other (describe below) Pastoral Care Referral From _x__ Patient ___ Family ___ Nurse ___ Physician ___ Metals Analyst ___ Truck Farmer ___ Other (describe below) Sacrament/Intervention _x__ Active listening ___ Anointing ___ Nondenominational ___ Bereavement ___ Communion ___ Jade exploration ___ _x__ Life review _x__ Prayer ___ Reconciliation ___ Sacrament of Sick ___ Supportive presence ___ Wedding ___ Other (describe below) Pastoral Comments patient is able to explain what happened and her current condition that brought her to the hospital; pt is frustrated after doing so well for a while; pt has many health appointments that she needs to address; pt has some good friends that help her; pt asks for prayer and affirms her trust in God
[2024-09-30 17:06] VITALS: BP 123/77; PULSE 113; RESP 17; TEMP 36.7; O2SAT 91
[2024-09-30] MEDS: MELATONIN 3 MG TABLET PO (22:20)
[2024-09-30 23:00] VITALS: BP 146/71; PULSE 104; RESP 20; TEMP 36.6; O2SAT 93
[2024-10-01] MEDS: 0.9% Normal Saline (1000mL) 1,000 ML 100 ML IV ×2 (00:46→11:58)
[2024-10-01 03:00] VITALS: BP 128/86; PULSE 102; RESP 20; TEMP 36.8; O2SAT 96
[2024-10-01 04:54] VITALS: BMI 45.9
[2024-10-01 05:00] VITALS: BP 132/71; PULSE 84; RESP 16; TEMP 36.8; O2SAT 94
[2024-10-01 08:26] VITALS: BP 106/67; PULSE 81; RESP 18; TEMP 36.1; O2SAT 94
[2024-10-01] MEDS: APIXABAN 2.5 MG TABLET (WCH) PO ×2 (08:28→22:37)
[2024-10-01] MEDS: Meropenem 500 MG in 0.9% Normal Saline (50mL MB+) 50 ML 100 MG IV (08:31)
[2024-10-01] MEDS: Lidocaine 5% Patch 1 PATCH TOPICAL (08:33)
[2024-10-01 08:53] LABS: Anion Gap 12 (5-15); BUN 85 mg/dL (4-19); BUN/Creat Ratio 26.8 RATIO (10-20); Calcium,Total 7.5 mg/dL (7.6-11.0); Carbon Dioxide 12.9 mmol/L (21.0-32.0); Chloride 115 mmol/L (98-108); Estimated Creatinine Clearance 16.24 ml/min (50-250); Glucose 98 mg/dL (70-99); Potassium 5.3 mmol/L (3.3-5.1)
--- NOTE | 2024-10-01 10:30 | PN.HOSP_ITS ---
Reason for Visit Reason for Visit: Altered mental status/fatigue/poor oral intake Subjective Subjective Patient states she is feeling great. We did discuss that she still has some abnormal renal function and acidosis so I am not comfortable discharging her as of yet. She states you are the doctor and I trust you and your decisions. Overall plan is for discharge to transitional care unit. Objective Data Objective Data Vital Signs: Vital Signs Temp Pulse Resp BP Pulse Ox O2 Del Method O2 Flow Rate 97 F L 81 18 106/67 94 Room Air 2 10/01/24 08:26 10/01/24 08:26 10/01/24 08:26 10/01/24 08:26 10/01/24 08:26 10/01/24 08:10/01/24 07:37 Oxygen Flow Rate (L/min) 2 Oxygen Delivery Method Room Air Weight: 114 kg Body Mass Index (BMI) 45.9 Intake & Output: Intake and Output for Last 24 Hours 09/29/24 09/30/24 10/01/24 23:59 23:59 23:59 Intake Total 3868.33 / 3868.33 2151.67 / 2251.67 1250 / 1250 Output Total 3650 / 3650 1800 / 2150 850 / 850 Balance 218.33 / 218.33 351.67 / 101.67 400 / 400 Lab / Micro Data 09/30/24 05:48 10/01/24 16:35 Labs: Laboratory Results - last 24 hr 10/01/24 07:50: Sodium 140, Potassium 5.3 H, Chloride 115 H, Carbon Dioxide 12.9 L, Anion Gap 12, BUN 85 H, Creatinine 3.19 H, Estim Creat Clear Calc 16.24 L, E st GFR (MDRD) Non-Af 14 L, BUN/Creatinine Ratio 26.8 H, Glucose 98, Calcium 7.5 L Micro: Microbiology 09/29/24 00:20 Urine, Clean Catch 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 Physical Exam Const alert, oriented x3, no apparent distress and well nourished; Negative for average body habitus or healthy appearing Constitutional Narrative: Morbidly obese, elderly, white female, sitting up in chair at the bedside eating dinner watching television, appears comfortable, does not look toxic, very pleasant HEENT head/scalp atraumatic and moist oral mucous membranes HEENT Narrative: Mallampati 3, no thrush Head and Scalp: normocephalic Eyes conjunctivae normal Eyes Narrative: No scleral icterus Neck supple Neck Narrative: Neck is short and thick, trachea midline Resp normal respiratory effort, no retractions, no use of accessory muscles and clear to auscultation bilaterally Auscultation: Negative for rales, rhonchi or wheezes Cardio regular rate, regular rhythm, S1 normal heart sound, S2 normal heart sound, no murmurs, no rub, no gallops and no clicks GI normal to inspection, nondistended, normoactive bowel sounds, soft to palpation and non-tender Extremity Extremity Narrative: Trace bilateral lower extremity edema, no cyanosis or clubbing, radial and pedal pulses are 2+ bilaterally Skin no jaundice, no petechiae and no mottling Skin Narrative: Scattered ecchymosis all over bilateral upper extremities Neuro oriented x3, moves all extremities and no focal motor deficits Neuro Narrative: Generalized weakness with no focal deficits noted Psych affect normal Psych Narrative: Very pleasant, interacts appropriately Assessment & Plan Assessment/Plan (1) Hyperkalemia: (2) Metabolic acidosis: (3) JOSE (acute kidney injury): (4) Generalized weakness: (5) Toxic metabolic encephalopathy: PLAN: Plan 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 - No need for acute renal replacement therapy at this time - Renal ultrasound is unremarkable. - Continue to avoid nephrotoxins -Nephrology is following-appreciate input Metabolic acidosis secondary to the above - Serum bicarb was noted to be low and ABG was drawn with a pH of 7.22 - Starts bicarb drip - Highly suspect this is related to her renal dysfunction - Once we get her normalized we will start oral bicarb until her renal function improves and her kidneys can normally metabolize and reabsorb bicarb as needed - Follow-up BMP shows improvement - Repeat lab in a.m. Hyperkalemia - Likely related to extracellular potassium shifts with acidosis - Should see improvement with treatment of acidosis - Repeat lab in a.m. E. coli UTI - Will narrow antibiotics and transition to orals with ciprofloxacin Cipro renal dosing for UTI for UTI - Discontinue meropenem - Cipro dose 250 mg every 18 hours Chronic anemia - Multifactorial - Is macrocytic - Counts are stable next-continue to monitor Generalized weakness and debility - Continue PT OT - Plan is for transitional care unit at discharge once medically ready Tremor - Suspect secondary to gabapentin toxicity in the setting of JOSE next-will continue to hold gabapentin - Would not restart gabapentin until her kidney function is closer to the her baseline Left knee pain - X-rays performed and no significant bony abnormality other than arthritis noted - As needed medications available in conjunction with scheduled Tylenol and a Lidoderm patch - Recommend outpatient orthopedic follow-up Paroxysmal atrial fibrillation - Continue apixaban - Continue carvedilol Essential hypertension/hyperlipidemia - Continue home atorvastatin - Continue home carvedilol - Hold home diuretic due to JOSE Seizure disorder - Continue lacosamide Hypothyroidism -continue home levothyroxine History of drug abuse - Remote Depression/anxiety - Continue home regimen with Remeron DVT prophylaxis - Continue apixaban CODE STATUS - DNR CCA with no intubation Charges/Coding Visit Charges Inpatient E&M: 51766 Subs Hosp L3
[2024-10-01 10:50] LABS: Allen Test Positive; Base Excess -12 mmol/L (-2 to +2); FI02 21.0; PO2 80 mmHG (75-100); SITE R Radial; SO2 93 % (95-99)
[2024-10-01] MEDS: Sodium Bicarbonate 150 MEQ in Dextrose 5%-Water (1000mL Bag) 1,000 ML 125 MEQ IV ×2 (13:34→22:46)
[2024-10-01 14:00] VITALS: BP 108/60; PULSE 105; RESP 18; TEMP 36.8; O2SAT 94
[2024-10-01 17:24] LABS: Anion Gap 14 (5-15); BUN 85 mg/dL (4-19); BUN/Creat Ratio 27.2 RATIO (10-20); Calcium,Total 7.9 mg/dL (7.6-11.0); Carbon Dioxide 15.5 mmol/L (21.0-32.0); Chloride 111 mmol/L (98-108); Estimated Creatinine Clearance 16.66 ml/min (50-250); Glucose 104 mg/dL (70-99); Potassium 5.0 mmol/L (3.3-5.1)
--- NOTE | 2024-10-01 18:14 | PN.RENAL_ITS ---
Subjective Subjective no new complaints Objective Data Objective Data Vital Signs: Vital Signs Temp Pulse Resp BP Pulse Ox O2 Del Method O2 Flow Rate 98.3 F 105 H 18 108/60 94 Room Air 2 10/01/24 14:00 10/01/24 14:00 10/01/24 14:00 10/01/24 14:00 10/01/24 14:00 10/01/24 14:00 10/01/24 07:37 Oxygen Flow Rate (L/min) 2 Oxygen Delivery Method Room Air Weight: 114 kg Body Mass Index (BMI) 45.9 Intake & Output: Intake and Output for Last 24 Hours 09/29/24 09/30/24 10/01/24 23:59 23:59 23:59 Intake Total 3868.33 / 3868.33 2151.67 / 2251.67 2896.67 / 2896.67 Output Total 3650 / 3650 1800 / 2150 850 / 850 Balance 218.33 / 218.33 351.67 / 101.67 2046.67 / 2046.67 Lab / Micro Data 09/30/24 05:48 10/01/24 16:35 Labs: Laboratory Results - last 24 hr 10/01/24 07:50: Sodium 140, Potassium 5.3 H, Chloride 115 H, Carbon Dioxide 12.9 L, Anion Gap 12, BUN 85 H, Creatinine 3.19 H, Estim Creat Clear Calc 16.24 L, E st GFR (MDRD) Non-Af 14 L, BUN/Creatinine Ratio 26.8 H, Glucose 98, Calcium 7.5 L 10/01/24 16:35: Sodium 140, Potassium 5.0, Chloride 111 H, Carbon Dioxide 15.5 L , Anion Gap 14, BUN 85 H, Creatinine 3.11 H, Estim Creat Clear Calc 16.66 L, Est GFR (MDRD) Non-Af 14 L, BUN/Creatinine Ratio 27.2 H, Glucose 104 H, Calcium 7.9 Micro: Microbiology 09/29/24 00:20 Urine, Clean Catch Urine Culture - Final Escherichia coli ABG Data ABG results: ABG 10/01/24 10:46 Specimen Type ART Sample Site R Radial pH 7.22 L Bicarbonate Actual 15.7 L Total CO2 17 Base Excess -12 L O2 Saturation 93 L O2 % 21.0 ABG pCO2 38.4 ABG pO2 80 Alfredo Test Positive O2 Delivery Device Room Air Vent Mode Not entered Physical Exam Narrative Alert and oriented x 3 no obvious distress s1s2 no murmurs lungs clear abdomen soft no organomegaly no pitting edema Assessment & Plan Assessment/Plan (1) JOSE (acute kidney injury): PLAN: - 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 Prior to this admission, creatinine ranged between 1.8-2.0. Admission Creatinine 4.1, Renal ultrasound without any hydronephrosis. Urine analysis with few leukocytes. Blood pressure is acceptable. As per admission records, she has had poor oral intake for last several days. Most likely volume depletion related. better - Acidosis. Presumably due to JOSE. bicarb drip
[2024-10-01 20:00] VITALS: BP 119/86; PULSE 112; RESP 16; TEMP 36.6; O2SAT 93
[2024-10-01] MEDS: MELATONIN 3 MG TABLET PO (22:37)
[2024-10-01] MEDS: 0.9% Saline Lock 10 ML Syringe IV (22:43)
[2024-10-01 23:00] VITALS: BP 123/75; PULSE 108; RESP 18; TEMP 36.6; O2SAT 92
[2024-10-02 04:58] VITALS: BP 112/74; PULSE 86; RESP 16; TEMP 36.4; O2SAT 97
[2024-10-02 05:15] VITALS: BMI 47.1
[2024-10-02 06:29] LABS: Hematocrit 31.4 % (37-47); Hemoglobin 9.1 g/dL (12.0-15.0); Immature Granulocytes Count 0.020 X10^3/uL (0.0-0.0); Mean Corp Hgb Conc 29.0 g/dL (32-36); Mean Corpuscular Volume 110.6 fL (81-99); Mean Platelet Vol. 12.9 fl (6.2-12.0); NRBC Flagged by Analyzer 0 % (0-5); Platelet Count 196 K/mm3 (150-450); RBC Distribution Width CV 15.5 % (11.6-14.6); RBC Distribution Width SD 63.0 fl (35.1-43.9); Red Blood Count 2.84 M/mm3 (4.2-5.4); White Blood Count 6.1 K/mm3 (4.4-11.0)
[2024-10-02 06:33] LABS: AST(SGOT) 71 U/L (<=31); Alanine Aminotransfer ALT/SGPT 218 U/L (<=34); Albumin, Serum 2.3 g/dL (3.4-4.8); Alkaline Phosphatase 121 U/L (35-104); Anion Gap 14 (5-15); BUN 81 mg/dL (4-19); BUN/Creat Ratio 27.5 RATIO (10-20); Calcium,Total 7.7 mg/dL (7.6-11.0); Carbon Dioxide 15.7 mmol/L (21.0-32.0); Chloride 107 mmol/L (98-108); Estimated Creatinine Clearance 17.83 ml/min (50-250); Globulin 2.6 g/dL (2.2-4.2); Glucose 101 mg/dL (70-99); Magnesium 2.3 mg/dL (1.5-2.2); Potassium 4.6 mmol/L (3.3-5.1)
[2024-10-02] MEDS: Sodium Bicarbonate 150 MEQ in Dextrose 5%-Water (1000mL Bag) 1,000 ML 125 MEQ IV ×2 (08:25→19:39)
[2024-10-02 08:40] VITALS: BP 116/71; PULSE 69; RESP 16; TEMP 36.3; O2SAT 98
[2024-10-02] MEDS: Lidocaine 5% Patch 1 PATCH TOPICAL (12:52)
[2024-10-02] MEDS: APIXABAN 2.5 MG TABLET (WCH) PO ×2 (12:56→20:31)
--- NOTE | 2024-10-02 13:11 | PCM.PN.HOSP ---
Reason for Visit Reason for Visit: Altered mental status/fatigue/poor oral intake Subjective Subjective Patient states she is definitely feeling better. She states she feels like she is climbing up to the mountain however not at the peak but definitely on the climb up rather than sliding down. No specific complaints at this time. States she is moving her bowels fine. Anxious to get up and move around. Overall plan is still for discharge to transitional care unit when she is medically stable. Objective Data Objective Data Vital Signs: Vital Signs Temp Pulse Resp BP Pulse Ox O2 Del Method O2 Flow Rate 97.4 F L 69 16 116/71 98 Room Air 2 10/02/24 08:40 10/02/24 08:40 10/02/24 08:40 10/02/24 08:40 10/02/24 08:40 10/02/24 10:00 10/01/24 07:37 Oxygen Flow Rate (L/min) 2 Oxygen Delivery Method Room Air Weight: 116.9 kg Body Mass Index (BMI) 47.1 Intake & Output: Intake and Output for Last 24 Hours 09/30/24 10/01/24 10/02/24 23:59 23:59 23:59 Intake Total 2151.67 / 2251.67 4046.67 / 4146.67 1450 / 1450 Output Total 1800 / 2150 850 / 1150 1100 / 1100 Balance 351.67 / 101.67 3196.67 / 2996.67 350 / 350 Lab / Micro Data 10/02/24 06:01 10/02/24 06:01 Labs: Laboratory Results - last 24 hr 10/01/24 16:35: Sodium 140, Potassium 5.0, Chloride 111 H, Carbon Dioxide 15.5 L, Anion Gap 14, BUN 85 H, Creatinine 3.11 H, Estim Creat Clear Calc 16.66 L, Est GFR (MDRD) Non-Af 14 L, BUN/Creatinine Ratio 27.2 H, Glucose 104 H, Calcium 7.9 10/02/24 06:01: WBC 6.1, RBC 2.84 L, Hgb 9.1 L, Hct 31.4 L, MCV 110.6 H D, MCH 32.0, MCHC 29.0 L D, RDW Std Deviation 63.0 H, RDW Coeff of Parris 15.5 H, Plt Count 196, MPV 12.9 H, Immature Gran % (Auto) 0.300, Neut % (Auto) 54.3, Lymph % (Auto) 29.0, [place] % (Auto) 9.0, Eos % (Auto) 6.7 H, Baso % (Auto) 0.7, Absolute Neuts (auto) 3.3, Absolute Lymphs (auto) 1.78, Nucleated RBC % 0, Sodium 137, Potassium 4.6, Chloride 107, Carbon Dioxide 15.7 L, Anion Gap 14, BUN 81 H, Creatinine 2.95 H, Estim Creat Clear Calc 17.83 L, Est GFR (MDRD) Non-Af 15 L, BUN/Creatinine Ratio 27.5 H, Glucose 101 H, Calcium 7.7, Phosphorus 6.5 H, Magnesium 2.3 H, Total Bilirubin 0.20, AST 71 H, ALT 218 H, Alkaline Phosphatase 121 H, Total Protein 4.9 L, Albumin 2.3 L, Globulin 2.6, Albumin/Globulin Ratio 0.9 Micro: Microbiology 09/30/24 23:55 Urine, Clean Catch Urine Culture - Preliminary GPC Poss Enterococcus sp 09/29/24 00:20 Urine, Clean Catch Urine Culture - Final Escherichia coli Physical Exam Const alert, oriented x3, no apparent distress and well nourished; Negative for average body habitus or healthy appearing Constitutional Narrative: Morbidly obese, elderly, white female, sitting up in bed eating breakfast and watching television, appears comfortable, does not look toxic, very pleasant HEENT head/scalp atraumatic and moist oral mucous membranes Head and Scalp: normocephalic Eyes Eyes Narrative: No scleral icterus Resp normal respiratory effort, no retractions, no use of accessory muscles and clear to auscultation bilaterally Auscultation: Negative for rales, rhonchi or wheezes Cardio regular rate, regular rhythm, S1 normal heart sound, S2 normal heart sound, no murmurs, no rub, no gallops and no clicks GI normal to inspection, nondistended, normoactive bowel sounds, soft to palpation, non-tender and non-distended Extremity Extremity Narrative: Trace bilateral lower extremity edema, no cyanosis or clubbing, radial and pedal pulses are 2+ bilaterally Neuro oriented x3, moves all extremities and no focal motor deficits Neuro Narrative: Generalized weakness with no focal deficits noted Psych affect normal Psych Narrative: Very pleasant, interacts appropriately Assessment & Plan Assessment/Plan (1) Hyperkalemia: (2) Metabolic acidosis: (3) JOSE (acute kidney injury): (4) Generalized weakness: (5) Toxic metabolic encephalopathy: PLAN: Plan 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 - No need for acute renal replacement therapy at this time - Renal ultrasound is unremarkable. - Continue to avoid nephrotoxins - Nephrology is following-appreciate input Metabolic acidosis secondary to the above - Serum bicarb was noted to be low and ABG was drawn with a pH of 7.22 on 10/02/2024 - Will continue bicarb drip lately for another 24 hours as acid-base status seems to be improving slowly -Will consider transition to oral bicarb tomorrow as long as she continues to improve clinically - Highly suspect this is related to her renal dysfunction - Follow-up BMP shows improvement - Repeat lab in a.m. Hyperkalemia secondary to acidosis - Resolved with improvement in her acid-base status E. coli UTI - Cipro dose 250 mg every 18 hours Chronic anemia - Multifactorial - Is macrocytic - Counts are stable next-continue to monitor Generalized weakness and debility - Continue PT OT - Plan is for transitional care unit at discharge once medically ready Tremor - Suspect secondary to gabapentin toxicity in the setting of JOSE next-will continue to hold gabapentin - Would not restart gabapentin until her kidney function is closer to the her baseline Left knee pain - X-rays performed and no significant bony abnormality other than arthritis noted - As needed medications available in conjunction with scheduled Tylenol and a Lidoderm patch - Recommend outpatient orthopedic follow-up Paroxysmal atrial fibrillation - Continue apixaban - Continue carvedilol Essential hypertension/hyperlipidemia - Continue home atorvastatin - Continue home carvedilol - Hold home diuretic due to JOSE Seizure disorder - Continue lacosamide Hypothyroidism -continue home levothyroxine History of drug abuse - Remote Depression/anxiety - Continue home regimen with Remeron DVT prophylaxis - Continue apixaban CODE STATUS - DNR CCA with no intubation Charges/Coding Visit Charges Inpatient E&M: 73556 [facility] Hosp L2
[2024-10-02 17:00] VITALS: BP 105/87; PULSE 67; RESP 18; TEMP 36.4; O2SAT 97
[2024-10-02] MEDS: 0.9% Saline Lock 10 ML Syringe IV (19:39)
[2024-10-02 20:00] VITALS: BP 111/72; PULSE 96; RESP 16; TEMP 36.4; O2SAT 100
[2024-10-02] MEDS: MELATONIN 3 MG TABLET PO (20:42)
[2024-10-02 23:00] VITALS: BP 111/72; PULSE 69; RESP 16; TEMP 36.1; O2SAT 100
[2024-10-03] VITALS (7 sets, daily range): BP systolic 85–120; BP diastolic 54–88; PULSE 74–108; RESP 15–17; TEMP 36.4–36.6; O2SAT 93–98; BMI 47.7
[2024-10-03] MEDS: Sodium Bicarbonate 150 MEQ in Dextrose 5%-Water (1000mL Bag) 1,000 ML 125 MEQ IV (04:48)
[2024-10-03 06:49] LABS: Hematocrit 28.5 % (37-47); Hemoglobin 9.0 g/dL (12.0-15.0); Immature Granulocytes Count 0.020 X10^3/uL (0.0-0.0); Mean Corp Hgb Conc 31.6 g/dL (32-36); Mean Corpuscular Volume 102.9 fL (81-99); Mean Platelet Vol. 13.8 fl (6.2-12.0); NRBC Flagged by Analyzer 0 % (0-5); Platelet Count 195 K/mm3 (150-450); RBC Distribution Width CV 15.1 % (11.6-14.6); RBC Distribution Width SD 56.8 fl (35.1-43.9); Red Blood Count 2.77 M/mm3 (4.2-5.4); White Blood Count 6.6 K/mm3 (4.4-11.0)
[2024-10-03 07:13] LABS: Anion Gap 11 (5-15); BUN 78 mg/dL (4-19); BUN/Creat Ratio 27.3 RATIO (10-20); Calcium,Total 7.6 mg/dL (7.6-11.0); Carbon Dioxide 24.9 mmol/L (21.0-32.0); Chloride 104 mmol/L (98-108); Estimated Creatinine Clearance 18.66 ml/min (50-250); Glucose 102 mg/dL (70-99); Potassium 4.3 mmol/L (3.3-5.1)
--- NOTE | 2024-10-03 07:51 | PCM.PN.HOSP ---
Reason for Visit Reason for Visit: Altered mental status/fatigue/poor oral intake Subjective Subjective Patient states overall she is feeling great. No complaints at this time. Anxious to get to rehab once she is medically stable and we feel it is appropriate. Still having no bowel issues. No pain. Objective Data Objective Data Vital Signs: Vital Signs Temp Pulse Resp BP Pulse Ox O2 Del Method O2 Flow Rate 97.8 F 69 16 94/77 93 Room Air 2 10/03/24 03:40 10/02/24 23:00 10/03/24 03:40 10/03/24 03:40 10/03/24 03:40 10/03/24 03:40 10/01/24 07:37 Oxygen Flow Rate (L/min) 2 Oxygen Delivery Method Room Air Weight: 118.3 kg Body Mass Index (BMI) 47.7 Intake & Output: Intake and Output for Last 24 Hours 10/01/24 10/02/24 10/03/24 23:59 23:59 23:59 Intake Total 4046.67 / 4146.67 2750 / 2750 1143.75 / 1143.75 Output Total 850 / 1150 1100 / 1100 Balance 3196.67 / 2996.67 1650 / 1650 1143.75 / 1143.75 Lab / Micro Data 10/03/24 06:10 10/03/24 06:10 Labs: Laboratory Results - last 24 hr 10/03/24 06:10: WBC 6.6, RBC 2.77 L, Hgb 9.0 L, Hct 28.5 L, MCV 102.9 H D, MCH 32.5 H, MCHC 31.6 L D, RDW Std Deviation 56.8 H, RDW Coeff of Parris 15.1 H, Plt Count 195, MPV 13.8 H, Immature Gran % (Auto) 0.300, Neut % (Auto) 51.8, Lymph % (Auto) 32.3, [place] % (Auto) 8.8, Eos % (Auto) 6.2 H, Baso % (Auto) 0.6, Absolute Neuts (auto) 3.4, Absolute Lymphs (auto) 2.13, Nucleated RBC % 0, Sodium 140, Potassium 4.3, Chloride 104, Carbon Dioxide 24.9, Anion Gap 11, BUN 78 H, Creatinine 2.84 H, Estim Creat Clear Calc 18.66 L, Est GFR (MDRD) Non-Af 16 L, BUN/Creatinine Ratio 27.3 H, Glucose 102 H, Calcium 7.6 Micro: Microbiology 09/30/24 23:55 Urine, Clean Catch Urine Culture - Preliminary GPC Poss Enterococcus sp 09/29/24 00:20 Urine, Clean Catch Urine Culture - Final Escherichia coli Physical Exam Const alert, oriented x3, no apparent distress and well nourished; Negative for average body habitus or healthy appearing Constitutional Narrative: Morbidly obese, elderly, white female, sitting up in bed watching television, appears comfortable, does not look toxic, very pleasant HEENT head/scalp atraumatic and moist oral mucous membranes HEENT Narrative: Mallampati 3, no thrush Head and Scalp: normocephalic Eyes Eyes Narrative: No scleral icterus Resp normal respiratory effort, no retractions, no use of accessory muscles and clear to auscultation bilaterally Auscultation: Negative for rales, rhonchi or wheezes Cardio regular rate, regular rhythm, S1 normal heart sound, S2 normal heart sound, no murmurs, no rub, no gallops and no clicks GI normal to inspection, nondistended, normoactive bowel sounds, soft to palpation and non-tender Extremity Extremity Narrative: Trace bilateral lower extremity edema, no cyanosis or clubbing, radial and pedal pulses are 2+ bilaterally Neuro oriented x3, moves all extremities and no focal motor deficits Neuro Narrative: Generalized weakness with no focal deficits noted Psych affect normal Psych Narrative: Extremely pleasant, interacts appropriately Assessment & Plan Assessment/Plan (1) Hyperkalemia: (2) Metabolic acidosis: (3) JOSE (acute kidney injury): (4) Generalized weakness: (5) Toxic metabolic encephalopathy: PLAN: Plan 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 - Continue to avoid nephrotoxins - Nephrology is following-appreciate input Metabolic acidosis secondary to the above - Serum bicarb was noted to be low and ABG was drawn with a pH of 7.22 on 10/02/2024 -Acidosis has resolved and bicarb is normalized - Discontinue bicarb drip - Will start oral bicarb until renal function is closer to baseline and then plan to discontinue with outpatient follow-up seeing nephrology -Patient is already established with Dr. Albrecht - Repeat lab in a.m. E. coli UTI - Continue Cipro but change dose to 250 twice daily given improvement in renal function Chronic anemia - Multifactorial - Is macrocytic - Counts are stable next-continue to monitor Generalized weakness and debility - Continue PT OT - Plan is for transitional care unit at discharge once medically ready-->Probably tomorrow Tremor - Suspect secondary to gabapentin toxicity in the setting of JOSE - will continue to hold gabapentin - Would not restart gabapentin until her kidney function is closer to the her baseline if at all Left knee pain - X-rays performed and no significant bony abnormality other than arthritis noted - As needed medications available in conjunction with scheduled Tylenol and a Lidoderm patch - Recommend outpatient orthopedic follow-up Paroxysmal atrial fibrillation - Continue apixaban - Continue carvedilol Essential hypertension/hyperlipidemia - Continue home atorvastatin - Continue home carvedilol - Hold home diuretic due to JOSE Seizure disorder - Continue lacosamide Hypothyroidism -continue home levothyroxine History of drug abuse - Remote Depression/anxiety - Continue home regimen with Remeron DVT prophylaxis - Continue apixaban CODE STATUS - DNR CCA with no intubation DISPOSITION: -Anticipate TCU d/c tomorrow Charges/Coding Visit Charges Inpatient E&M: 02529 Subs Hosp L2
[2024-10-03] MEDS: Lactated Ringers 1,000 ML 100 ML IV ×2 (09:05→18:16)
[2024-10-03] MEDS: APIXABAN 2.5 MG TABLET (WCH) PO ×2 (09:06→23:33)
[2024-10-03] MEDS: Lidocaine 5% Patch 1 PATCH TOPICAL (09:06)
--- NOTE | 2024-10-03 13:04 | PN.RENAL_ITS ---
Subjective Subjective Sitting in chair eating lunch. No complaints today. States good appetite. Objective Data Objective Data Vital Signs: Vital Signs Temp Pulse Resp BP Pulse Ox O2 Del Method O2 Flow Rate 97.6 F L 108 H 17 120/88 H 98 Room Air 2 10/03/24 09:10 10/03/24 09:10 10/03/24 09:10 10/03/24 09:10 10/03/24 09:10 10/03/24 09:14 10/01/24 07:37 Oxygen Flow Rate (L/min) 2 Oxygen Delivery Method Room Air Weight: 118.3 kg Body Mass Index (BMI) 47.7 Intake & Output: Intake and Output for Last 24 Hours 10/01/24 10/02/24 10/03/24 23:59 23:59 23:59 Intake Total 4046.67 / 4146.67 2750 / 2750 1143.75 / 1143.75 Output Total 850 / 1150 1100 / 1100 Balance 3196.67 / 2996.67 1650 / 1650 1143.75 / 1143.75 Lab / Micro Data 10/03/24 06:10 10/03/24 06:10 Labs: Laboratory Results - last 24 hr 10/03/24 06:10: WBC 6.6, RBC 2.77 L, Hgb 9.0 L, Hct 28.5 L, MCV 102.9 H D, MCH 32.5 H, MCHC 31.6 L D, RDW Std Deviation 56.8 H, RDW Coeff of Parris 15.1 H, Plt Count 195, MPV 13.8 H, Immature Gran % (Auto) 0.300, Neut % (Auto) 51.8, Lymph % (Auto) 32.3, [place] % (Auto) 8.8, Eos % (Auto) 6.2 H, Baso % (Auto) 0.6, Absolute Neuts (auto) 3.4, Absolute Lymphs (auto) 2.13, Nucleated RBC % 0, Sodium 140, Potassium 4.3, Chloride 104, Carbon Dioxide 24.9, Anion Gap 11, BUN 78 H, C reatinine 2.84 H, Estim Creat Clear Calc 18.66 L, Est GFR (MDRD) Non-Af 16 L, B UN/Creatinine Ratio 27.3 H, Glucose 102 H, Calcium 7.6 Micro: Microbiology 09/30/24 23:55 Urine, Clean Catch Urine Culture - Final Enterococcus raffinosus 09/29/24 00:20 Urine, Clean Catch Urine Culture - Final Escherichia coli Physical Exam Narrative Alert and oriented x 3 no obvious distress s1s2 no murmurs lungs clear abdomen soft no pitting edema Assessment & Plan Assessment/Plan (1) JOSE (acute kidney injury): PLAN: - 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 Prior to this admission, creatinine ranged between 1.8-2.0. Admission Creatinine 4.1/BUN 111--> today SCr 2.8/BUN 78. Renal ultrasound without any hydronephrosis. Urine analysis with few leukocytes. Blood pressure is acceptable. As per admission records, she had poor oral intake for several days. Most likely volume depletion related and kidney function improving on IVF. Overall renal function improved. Will arrange for hospital follow-up in [place] office. - Acidosis. Presumably due to JOSE. Patient stated she was not having any loose bowel movements. - discharge planning in progress, possibly TCU tomorrow. Assessment and plan reviewed with Dr. Albrecht
[2024-10-04] MEDS: MELATONIN 3 MG TABLET PO (01:25)
[2024-10-04] MEDS: Lactated Ringers 1,000 ML 100 ML IV (04:34)
[2024-10-04 04:38] VITALS: BP 91/61; PULSE 76; RESP 15; TEMP 36.6; O2SAT 96
[2024-10-04 04:44] VITALS: BMI 48.6
[2024-10-04 07:14] LABS: Anion Gap 12 (5-15); BUN 75 mg/dL (4-19); BUN/Creat Ratio 26.4 RATIO (10-20); Calcium,Total 7.8 mg/dL (7.6-11.0); Carbon Dioxide 23.9 mmol/L (21.0-32.0); Chloride 103 mmol/L (98-108); Estimated Creatinine Clearance 18.83 ml/min (50-250); Glucose 86 mg/dL (70-99); Potassium 4.5 mmol/L (3.3-5.1)
[2024-10-04] MEDS: APIXABAN 2.5 MG TABLET (WCH) PO (08:57)
[2024-10-04] MEDS: Lidocaine 5% Patch 1 PATCH TOPICAL (08:58)
[2024-10-04 09:00] VITALS: BP 93/71; PULSE 90; RESP 16; TEMP 36.2; O2SAT 94
--- NOTE | 2024-10-04 11:06 | PCM.TXEXTCAR ---
Diet Diet Order/Speech Therapy: INPATIENT Hospital Diet / Speech Therapy Order(s) 09/28/24 22:04 Diet: Cardiac - Heart Healthy Food consistency:: Regular Liquid Consistency:: Regular/Thin Dietary Modifications:: Potassium Restricted Routine Orders/Code Status Suppository Frequency: Daily PRN Routine Lab Work: BMP (3 to 5 days) Code Status: DNRCC-A (No ET tube) DC O2, CPAP, BIPAP needs Home O2 Discharge instructions: No Wound(s) Right Lower Leg: Wound Type: dry and intact reinfored Suggestions for Active Care Change Position every (hours): 2 Hours to sit in a chair: 2 Times a day to sit in chair: 3 Therapies Weight Bearing: Full weight bearing Physical Therapy: Eval and Treat Occupational Therapy: Eval and Treat Problem/Diagnosis (1) JOSE (acute kidney injury): Status: Acute Code(s): N17.9 - Acute kidney failure, unspecified Allergies/Procedures Done in Hospital Allergies cefazolin (From Kefzol) Allergy (Severe, Verified 09/28/24 22:23) hives/difficulty swallowing ibuprofen Allergy (Unknown, Verified 09/28/24 22:23) Rash peanut Allergy (Verified 09/28/24 22:23) Anaphylaxis process peanut, can eat peanuts, not example peanut butter Sulfa (Sulfonamide Antibiotics) Allergy (Verified 09/28/24 22:23) Unknown sulfamethoxazole (From Bactrim) Allergy (Verified 09/28/24 22:23) Other trimethoprim (From Bactrim) Allergy (Verified 09/28/24 22:23) Other Procedures: - (Knee x-ray/CT brain/renal ultrasound) Type of Care/Length of Stay Estimated LOS: Convalescent Care Less Than 30 days Type of Care Needed: Skilled Rehab Potential: Good Prognosis: Fair Additional Orders/Day of Discharge Day of Discharge: 10/04/24 Dietary and Speech Recommendations Dietitian Recommendations/Changes: Continue Cardiac diet with potassium restriction to manage medical conditions. Follow Up Care Please follow up with your Primary Care Physician in: 1 week after discharge from TCU Please Follow Up With: Qian Albrecht MD When: 1 to 2 weeks Discharge Plan Admission Admit Date/Time: 09/28/24 20:00 Attending Provider: Mellisa Acosta Primary Care Provider: Miryam Wells Consulting Providers: Qian Albrecht; Michelle Gallardo; Russell Todd Discharge Orders/Prescriptions Prescriptions: No Action Mirena 20 mcg/24 hours (7 yrs) 52 mg intrauterine device 1 mcg intrauterine ONCE cholecalciferol (vitamin D3) 25 mcg (1,000 unit) capsule 50 mcg PO DAILY nitroglycerin 0.4 mg tablet, sublingual 0.4 mg sublingual Q5M PRN (Reason: chest pain) Qty: 30 1RF Rx Instructions: do not exceed 3 doses per episode lacosamide 100 mg tablet 100 mg PO BID furosemide 40 mg tablet 40 mg PO Q OTHER DAY fluorometholone 0.1 % drops,suspension 1 drp ophthalmic (eye) BID benzonatate 100 mg capsule 100 mg PO TID carvedilol 6.25 mg tablet 6.25 mg PO Q12H multivitamin Tablet 1 tab PO DAILY gabapentin 300 mg capsule 300 mg PO TID guaifenesin 600 mg tablet extended release 12hr 600 mg PO BID prednisone 20 mg tablet 40 mg PO DAILY zinc gluconate 50 mg tablet 50 mg PO DAILY zolpidem 5 mg tablet 10 mg PO QHS polyethylene glycol 3350 17 gram Powder In Packet 17 g PO DAILY Qty: 30 0RF atorvastatin 40 mg tablet 40 mg PO QHS ferrous sulfate 324 mg (65 mg iron) tablet,delayed release (DR/EC) 324 mg PO DAILY levothyroxine 125 mcg tablet 125 mcg PO DAILY Patient Comments: TAKE 1 TABLET BY MOUTH ONCE DAILY. TAKE ON EMPTY STOMACH. FOR THYROID. acetaminophen 325 mg Tablet 650 mg PO TID Qty: 1 0RF bisacodyl 10 mg Suppository 10 mg OK X1 PRN (Reason: Constipation) Qty: 1 0RF calcium acetate(phosphat bind) 667 mg Capsule 667 mg PO TIDCM Qty: 1 0RF magnesium hydroxide 400 mg/5 mL Suspension 30 ml PO X1 PRN (Reason: Constipation) Qty: 30 0RF mirtazapine 15 mg Tablet 7.5 mg PO 2000 Qty: 1 0RF sennosides-docusate sodium [Stimulant Laxative Plus] 8.6-50 mg Tablet 2 tab PO BID Qty: 1 0RF Referrals / Follow Up: Miryam Wells, LILLIAM-C [Primary Care Provider] -
--- NOTE | 2024-10-04 11:09 | PCM.DC.SUM ---
Providers Date of Admission: 09/28/24 Date of Discharge: 10/04/24 Primary Care Physician: BROOKLYN Aguillon Consultations 09/28/24 22:04 Consult: Nephrology Routine Consulting Provider: Qian Albrecht Reason for Consult: JOSE on CKD, hyperkalemia EMERGENT Consult: No MD Notified: Yes Date Notified: 09/28/24 Time Notified: 22:31 Method of Notification: Answering Service 10/03/24 16:31 Consult: Onc/Wound/nurse aide Routine Comment: Reason for Consult:: BLISTER INTACT AND 2 NOT INTACT TO RIGHT THIGH SKIN GRAFT AREA Reason For Visit: ENCEPHALOPATHY, JOSE ON CKD, HYPERKALEMIA Diagnosis Discharge Diagnosis (1) JOSE (acute kidney injury): Status: Acute Code(s): N17.9 - Acute kidney failure, unspecified Medications at Discharge Home Medications levonorgestrel (Mirena) 1 mcg intrauterine ONCE . 07/25/21 nitroglycerin 0.4 mg sublingual tablet 0.4 mg sublingual Q5M PRN chest pain #30 tabs 06/27/22 polyethylene glycol 3350 17 gram oral powder packet 17 g PO DAILY bowel mobility #30 ea 06/09/23 fluorometholone 0.1 % eye drops,suspension 1 drp ophthalmic (eye) BID eyes 02/24/24 atorvastatin 40 mg tablet 40 mg PO QHS cholesterol 05/18/24 ferrous sulfate 324 mg (65 mg iron) tablet,delayed release 324 mg PO DAILY Supplement 05/18/24 levothyroxine 125 mcg tablet 125 mcg PO DAILY thyroid 05/18/24 acetaminophen 325 mg tablet 650 mg (2 x 325 mg) PO TID #1 TAB 06/09/24 bisacodyl 10 mg rectal suppository 10 mg ND X1 PRN Constipation #1 ea 06/09/24 calcium acetate(phosphat bind) 667 mg capsule 667 mg PO TIDCM #1 cap 06/09/24 magnesium hydroxide 400 mg/5 mL oral suspension 30 ml PO X1 PRN Constipation #30 mL 06/09/24 mirtazapine 15 mg tablet 7.5 mg (1/2 x 15 mg) PO 2000 #1 TAB 06/09/24 sennosides 8.6 mg-docusate sodium 50 mg tablet (Stimulant Laxative Plus) 2 tab PO BID #1 TAB 06/09/24 cholecalciferol (vitamin D3) 25 mcg (1,000 unit) capsule 50 mcg PO DAILY supplement 09/05/24 furosemide 40 mg tablet 40 mg PO Q OTHER DAY Diuretic 09/05/24 Held on 10/04/24. Instructions: Until restarted by nephrology lacosamide 100 mg tablet 100 mg PO BID Seizure control 09/05/24 benzonatate 100 mg capsule 100 mg PO TID cough 09/06/24 carvedilol 6.25 mg tablet 6.25 mg PO Q12H Blood pressure 09/28/24 guaifenesin 600 mg tablet, extended release 12 hr 600 mg PO BID Cough 09/28/24 multivitamin 1 tab PO DAILY Supplement 09/28/24 zinc gluconate 50 mg tablet 50 mg PO DAILY supplement 09/28/24 apixaban 5 mg tablet (Eliquis) 2.5 mg (1/2 x 5 mg) PO BID #0 tabs 10/04/24 gabapentin 300 mg capsule 100 mg (0.3333 x 300 mg) PO TID Neuropathy #1 cap 10/04/24 lidocaine 5 % topical patch 1 patch topical DAILY #0 ea 10/04/24 sodium bicarbonate 650 mg tablet 650 mg PO 4X/DAY #0 tabs 10/04/24 Hospital Course Operations None Procedures - (Renal ultrasound/knee x-ray/brain CT) Summary of Care Provided Minutes Spent on Discharge: 42 Hospital Course: Mrs. Vega is a 84-year-old white female presents emergency department at [facility] on 09/28/2024 with a chief complaint of confusion, fatigue, and poor oral intake. Patient has a history of generalized weakness and debility with bilateral knee pain however recently she became more weak and was not able to walk. She noted that her legs had been giving out with attempts to walk even with therapy. She called EMS given this problem to help her off of the floor. She also noted that she developed a fine tremor and was having some word finding difficulties patient's roommate reported that she had not been drinking well but she was still making urine. Vital signs on presentation showed temperature of 98, heart rate was 100, respiratory 16, blood pressure 109/50 and pulse ox 100% room air. CBC was overtly unremarkable for any acute changes. She has a chronic stable anemia. Chemistry panel was markedly abnormal with hyperkalemia potassium of 6, serum bicarb 11, chloride of 113, BUN of 111, serum creatinine 4.15 with a baseline of 1.7-2. Lactic acid was less than 1 LFTs were elevated at 289 and 351 for the AST and ALT respectively. Initial troponin was 44. Due to knee pain x-rays were performed and had no obvious abnormality that was acute. CT of the brain was unremarkable. It was felt that her encephalopathy was likely related to decreased clearance of medications specifically her gabapentin which probably led to her tremor as well. She was admitted to the PCU given her hyperkalemia and treated for hyperkalemia by the emergency department with calcium gluconate, insulin, and dextrose. She was also placed on IV fluids and nephrology was consulted. Her renal function did slowly improve with time. She remained acidotic so an ABG was performed and she was found to have a pH of 7.22 so she was started on a bicarb drip for hydration and replacement of her serum bicarb. Bicarb and pH slowly improved to the point where we could discontinue the bicarb drip and we placed her on oral bicarb. This was likely related to her kidneys and ability to reabsorb bicarb. Her hyperkalemia was right likely acid-base related from transient extracellular shifts of potassium due to acidosis. Once we corrected her acidosis her hyperkalemia stabilized and resolved. She was seen by physical and Occupational Therapy throughout her hospital course and they recommended ongoing therapy after discharge. Patient agreed to discharge to transitional care unit. Once she was medically stable on 10/04/2024 she was discharged to transitional care unit. We did decrease her gabapentin dose to just 100 mg 3 times daily. Renal function at time of discharge was 2.85. Will go ahead and continue to hold her diuretics until she follows up with nephrology. Will maintain her on bicarb for now until she follows up with nephrology as well. Her Eliquis dose was altered due to her creatinine and age as she is treated with this for atrial fibrillation. She should follow-up with her primary care physician within 1 week after discharge from TCU. She should follow-up with Dr. Jackson and Dr. Albrecht as previously recommended. She should have a BMP in the next 3 to 5 days to ensure her renal function is stable and her bicarb does not need weaned. She was diagnosed with a E. coli UTI during her hospitalization and treatment was completed prior to discharge. Discharge diagnoses: JOSE secondary to ATN CKD stage IIIb Metabolic acidosis E. coli UTI Chronic anemia Generalized weakness Debility Tremor-resolved Chronic knee pain bilateral PAF Essential hypertension Hyperlipidemia Seizure disorder Hypothyroidism History of drug use Depression Anxiety Physical Exam Const alert, oriented x3, no apparent distress, no limitations and well nourished; Negative for average body habitus or healthy appearing Constitutional Narrative: Morbidly obese, elderly, white female, lying in bed sleeping but awakens easily, appears comfortable, nontoxic General Appearance: cooperative, comfortable, well kempt and well developed Orientation / Consciousness: awake Exam Limitations: no limitations Nutritional Appearance: morbidly obese HEENT normocephalic, head/scalp atraumatic, hearing grossly normal bilaterally and moist oral mucous membranes HEENT Narrative: Mallampati 3, no thrush Eyes conjunctivae normal Eyes Narrative: No scleral icterus Neck supple Neck Narrative: Neck is short and thick, trachea midline Resp normal respiratory effort, no retractions, no use of accessory muscles and clear to auscultation bilaterally Auscultation: Negative for rales, rhonchi or wheezes Cardio regular rate, regular rhythm, S1 normal heart sound, S2 normal heart sound, no murmurs, no rub, no gallops and no clicks GI normal to inspection, nondistended, normoactive bowel sounds, soft to palpation, non-tender and non-distended Extremity normal to inspection and full ROM Extremity Narrative: Trace bilateral lower extremity edema, no cyanosis or clubbing, radial and pedal pulses are 2+ bilaterally Skin no jaundice, no petechiae and no mottling Skin Narrative: Scattered ecchymosis all over bilateral upper extremities Neuro oriented x3, moves all extremities and no focal motor deficits Neuro Narrative: Generalized weakness with no focal deficits noted Sensorium / Orientation: awake and alert Speech: speech normal Psych affect normal Psych Narrative: Extremely pleasant, interacts appropriately Weight / BMI Weight Weight: 120.8 kg Body Mass Index (BMI) 48.6 ABG / Lab / Microbiology Data 10/03/24 06:10 10/04/24 06:00 Laboratory: Laboratory Results - last 24 hr 10/04/24 06:00: Sodium 139, Potassium 4.5, Chloride 103, Carbon Dioxide 23.9, Anion Gap 12, BUN 75 H, Creatinine 2.85 H, Estim Creat Clear Calc 18.83 L, Est GFR (MDRD) Non-Af 16 L, BUN/Creatinine Ratio 26.4 H, Glucose 86, Calcium 7.8 Microbiology: Microbiology 09/30/24 23:55 Urine, Clean Catch Urine Culture - Final Enterococcus raffinosus 09/29/24 00:20 Urine, Clean Catch Urine Culture - Final Escherichia coli D/C Instructions Discharge Diet: Low fat / Low cholesterol and Renal Diet DC O2, CPAP, BIPAP Needs Home O2 Discharge instructions: No Please Follow Up With: Qian lAbrecht MD Meaningful Use Info Meaningful Use Meaningful Use Diagnoses (Choose all that apply): None applicable Ischemic Stroke Statin Dosing Therapy Reference: STATIN DOSE THERAPY REFERENCE: * Patients > 75 years receive moderate or high dose statin therapy. * Patients 75 years or YOUNGER should receive HIGH intensity statin dose unless contraindicated. You will be required to document reason for non-treatment if statin daily dose does not meet guidelines. HIGH DOSE STATIN THERAPY DAILY Atorvastatin > than or = to 40 mg Rosuvastatin > than or = to 20 mg Amlodipine + Atorvastatin > than or = to 2.5/40 mg Ezetimibe + Simvastatin 10/80 mg Simvastatin 80mg Discharge Plan Admission Admit Date/Time: 09/28/24 20:00 Primary Reason for Your Visit: Altered mental status/fatigue/poor oral intake Attending Provider: Mellisa Acosta Primary Care Provider: Miryam Wells Consulting Providers: Qian Albrecht; Michelle Gallardo; Russell Todd Discharge Orders/Prescriptions Prescriptions: New Eliquis 5 mg Tablet 2.5 mg PO BID Qty: 0 0RF sodium bicarbonate 650 mg Tablet 650 mg PO 4X/DAY Qty: 0 0RF lidocaine 5 % Adhesive Patch,Medicated 1 patch topical DAILY Qty: 0 0RF Protocol: *Topical Application Instructions APPLICATION INSTRUCTIONS: left knee Continued Mirena 20 mcg/24 hours (7 yrs) 52 mg intrauterine device 1 mcg intrauterine ONCE cholecalciferol (vitamin D3) 25 mcg (1,000 unit) capsule 50 mcg PO DAILY nitroglycerin 0.4 mg tablet, sublingual 0.4 mg sublingual Q5M PRN (Reason: chest pain) Qty: 30 1RF Rx Instructions: do not exceed 3 doses per episode lacosamide 100 mg tablet 100 mg PO BID fluorometholone 0.1 % drops,suspension 1 drp ophthalmic (eye) BID benzonatate 100 mg capsule 100 mg PO TID carvedilol 6.25 mg tablet 6.25 mg PO Q12H multivitamin Tablet 1 tab PO DAILY guaifenesin 600 mg tablet extended release 12hr 600 mg PO BID zinc gluconate 50 mg tablet 50 mg PO DAILY polyethylene glycol 3350 17 gram Powder In Packet 17 g PO DAILY Qty: 30 0RF atorvastatin 40 mg tablet 40 mg PO QHS ferrous sulfate 324 mg (65 mg iron) tablet,delayed release (DR/EC) 324 mg PO DAILY levothyroxine 125 mcg tablet 125 mcg PO DAILY Patient Comments: TAKE 1 TABLET BY MOUTH ONCE DAILY. TAKE ON EMPTY STOMACH. FOR THYROID. acetaminophen 325 mg Tablet 650 mg PO TID Qty: 1 0RF bisacodyl 10 mg Suppository 10 mg ND X1 PRN (Reason: Constipation) Qty: 1 0RF calcium acetate(phosphat bind) 667 mg Capsule 667 mg PO TIDCM Qty: 1 0RF magnesium hydroxide 400 mg/5 mL Suspension 30 ml PO X1 PRN (Reason: Constipation) Qty: 30 0RF mirtazapine 15 mg Tablet 7.5 mg PO 1999 Qty: 1 0RF sennosides-docusate sodium [Stimulant Laxative Plus] 8.6-50 mg Tablet 2 tab PO BID Qty: 1 0RF Changed gabapentin 300 mg capsule 100 mg PO TID Qty: 1 0RF Held furosemide 40 mg tablet 40 mg PO Q OTHER DAY Hold Instructions: Until restarted by nephrology Discontinued prednisone 20 mg tablet 40 mg PO DAILY zolpidem 5 mg tablet 10 mg PO QHS Referrals / Follow Up: Miryam Wells NP-C [Primary Care Provider] - Qian Albrecht MD [Med Staff - Consulting] - See Referral Note (Per Dr. Albrecht's recommendations) Disposition Disposition (needs filled in before D/C Order can be placed): Jail Facility Charges/Coding Visit Charges Inpatient E&M: 82410 SNF Disch >30 Min
--- NOTE | 2024-10-04 11:44 | WOUNDNOTE ---
wound photo: right thigh
--- NOTE | 2024-10-04 11:44 | WOUNDNOTE ---
skin photo: right lower leg
--- NOTE | 2024-10-04 12:22 | CASEMGMT ---
Addendum entered by Beata Gomez 10/04/24 13:56: SW checked with patient and she is aware she is going to TCU today. Patient did not need SW to call anyone for her. Beata MYERS Original Note: Patient is ready for discharge to [facility]. Plan: d/c to [facility] under skilled level of care. Beata MYERS
[2024-10-04 14:03] VITALS: BP 97/66; PULSE 89; RESP 16; TEMP 36.1; O2SAT 97
--- NOTE | 2024-10-04 14:37 | PHA.DC.MR.R ---
Pharmacy [place] Med Reconciliation Pharmacy Service has performed discharge medication reconciliation for this patient. The patient's discharge medication list was reviewed for discrepancies and discrepancies were resolved. Medications at Discharge Home Medications levonorgestrel (Mirena) 1 mcg intrauterine ONCE . 07/25/21 nitroglycerin 0.4 mg sublingual tablet 0.4 mg sublingual Q5M PRN chest pain #30 tabs 06/27/22 polyethylene glycol 3350 17 gram oral powder packet 17 g PO DAILY bowel mobility #30 ea 06/09/23 fluorometholone 0.1 % eye drops,suspension 1 drp ophthalmic (eye) BID eyes 02/24/24 atorvastatin 40 mg tablet 40 mg PO QHS cholesterol 05/18/24 ferrous sulfate 324 mg (65 mg iron) tablet,delayed release 324 mg PO DAILY Supplement 05/18/24 levothyroxine 125 mcg tablet 125 mcg PO DAILY thyroid 05/18/24 acetaminophen 325 mg tablet 650 mg (2 x 325 mg) PO TID #1 TAB 06/09/24 bisacodyl 10 mg rectal suppository 10 mg TN X1 PRN Constipation #1 ea 06/09/24 calcium acetate(phosphat bind) 667 mg capsule 667 mg PO TIDCM #1 cap 06/09/24 magnesium hydroxide 400 mg/5 mL oral suspension 30 ml PO X1 PRN Constipation #30 mL 06/09/24 mirtazapine 15 mg tablet 7.5 mg (1/2 x 15 mg) PO 2000 #1 TAB 06/09/24 sennosides 8.6 mg-docusate sodium 50 mg tablet (Stimulant Laxative Plus) 2 tab PO BID #1 TAB 06/09/24 cholecalciferol (vitamin D3) 25 mcg (1,000 unit) capsule 50 mcg PO DAILY supplement 09/05/24 furosemide 40 mg tablet 40 mg PO Q OTHER DAY Diuretic 09/05/24 Held on 10/04/24. Instructions: Until restarted by nephrology lacosamide 100 mg tablet 100 mg PO BID Seizure control 09/05/24 benzonatate 100 mg capsule 100 mg PO TID cough 09/06/24 carvedilol 6.25 mg tablet 6.25 mg PO Q12H Blood pressure 09/28/24 guaifenesin 600 mg tablet, extended release 12 hr 600 mg PO BID Cough 09/28/24 multivitamin 1 tab PO DAILY Supplement 09/28/24 zinc gluconate 50 mg tablet 50 mg PO DAILY supplement 09/28/24 apixaban 5 mg tablet (Eliquis) 2.5 mg (1/2 x 5 mg) PO BID #0 tabs 10/04/24 gabapentin 300 mg capsule 100 mg (0.3333 x 300 mg) PO TID Neuropathy #1 cap 10/04/24 lidocaine 5 % topical patch 1 patch topical DAILY #0 ea 10/04/24 sodium bicarbonate 650 mg tablet 650 mg PO 4X/DAY #0 tabs 10/04/24
== END 2024-10-04 14:06 | disposition skilled nursing facility (03) | DRG 682 ==
LOC: ED 19:52 → PCU 20:35
PROVIDERS: Emergency Medicine; Admitting Provider Family Medicine; Emergency Provider Emergency Medicine; PCP Nurse Practitioner Family; Visit Provider Internal Medicine
DX: N17.0 Acute kidney failure with tubular necrosis (principal); G92.8 Other toxic encephalopathy; E87.20 Acidosis, unspecified; I13.0 Hypertensive heart and chronic kidney disease with heart failure and stage 1 through stage 4 chronic kidney disease, or unspecified chronic kidney disease; Z68.41 Body mass index [BMI] 40.0-44.9, adult; I50.32 Chronic diastolic (congestive) heart failure; N39.0 Urinary tract infection, site not specified; R62.7 Adult failure to thrive; Z66 Do not resuscitate; G40.909 Epilepsy, unspecified, not intractable, without status epilepticus; I48.0 Paroxysmal atrial fibrillation; J44.9 Chronic obstructive pulmonary disease, unspecified; N18.30 Chronic kidney disease, stage 3 unspecified; D53.9 Nutritional anemia, unspecified; E03.9 Hypothyroidism, unspecified; N18.32 Chronic kidney disease, stage 3b; E66.01 Morbid (severe) obesity due to excess calories; E87.5 Hyperkalemia; E78.00 Pure hypercholesterolemia, unspecified; M25.562 Pain in left knee; M25.561 Pain in right knee; G47.33 Obstructive sleep apnea (adult) (pediatric); K21.9 Gastro-esophageal reflux disease without esophagitis; F41.8 Other specified anxiety disorders; R25.1 Tremor, unspecified; W19.XXXA Unspecified fall, initial encounter; R53.81 Other malaise; Z86.718 Personal history of other venous thrombosis and embolism; Z79.890 Hormone replacement therapy; Z79.01 Long term (current) use of anticoagulants; B96.20 Unspecified Escherichia coli [E. coli] as the cause of diseases classified elsewhere; R53.1 Weakness; G89.29 Other chronic pain; Z99.89 Dependence on other enabling machines and devices; Z79.899 Other long term (current) drug therapy; Z98.42 Cataract extraction status, left eye; Z90.49 Acquired absence of other specified parts of digestive tract; Z96.619 Presence of unspecified artificial shoulder joint; Z96.653 Presence of artificial knee joint, bilateral; R74.01 Elevation of levels of liver transaminase levels; R60.9 Edema, unspecified; T42.6X5A Adverse effect of other antiepileptic and sedative-hypnotic drugs, initial encounter
CPT/HCPCS: 36415; 36600; 70450; 73560; 76770; 80048; 80053; 81001; 82550; 82570; 82803; 82962; 83605; 83690; 83735; 84100; 84300; 84484; 85025; 87077; 87086; 87088; 87186; 93005; 94640; 94668; 97112; 97116; 97162; 97166; 97530; 97535; 97802; 97803; 99285; J2185; A4216; J0612

== ENCOUNTER 2024-10-04 14:29 | Inpatient (IN) | payer MEDICARE, OTHER, SELFPAY ==
[2024-10-04 14:33] VITALS: BP 101/63; PULSE 111; RESP 16; RESP 20; TEMP 36.5; O2SAT 96; BMI 48.6
[2024-10-04 18:07] VITALS: BP 136/75; PULSE 114; RESP 18; O2SAT 94
[2024-10-04 19:11] VITALS: BMI 49.0
--- NOTE | 2024-10-04 19:11 | PCM.HP.STD ---
HPI - General General Date of Admission: 10/04/24 Date of Service: 10/04/24 Chief Complaint: Here for rehabilitation. HPI Narrative MARI LOPEZ, is a 84 Female who presents with followin09/28/2024 [facility] ED lower extremity injury. Weak, cannot walk, legs give out. Physical therapy twice daily, EMS called, new tremor, new difficulty finding words. K 6.0, BUN 111, Creatinine 4.15, Magnesium 3.1, AST 289, ALT 351, Alk phos 130, Troponin 44. EKG atrial fibrillation, peaked T waves. 09/28/2024 Admit [facility]. FeNa, Renal ultrasound, nephrology for acute kidney injury. PT/OT/CM. Monitor hyperkalemia. IV fluids for JOSE, Transaminitis. 09/29/2024 Tremulous, weak. Creatinine improved from 4.15 to 3.78 with IV fluids. Renal ultrasound negative, Hold Furosemide for JOSE. Confusion resolved, CT head negative. Meropenem IV for urinary tract infection. Hold Gabapentin for tremor. 09/30/2024 Feeling better, Tremor resolved, left knee pain. JOSE 2/2 prerenal +/- ATN. 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 Hold Gabapentin, continue IV fluids for tremor. Tylenol, Lidoderm, Oxycodone for left knee pain. 10/01/2024 Feeling great, plan discharge to TCU. Continue IV fluids for JOSE. Bicarb drip for metabolic acidosis. Stop Meropenem, start Cipro for E. Coli UTI. PT/OT SNF. Tremor 2/2 Gabapentin toxicity/JOSE. X-ray left knee okay. 10/02/2024 Feeling better, moving bowels. PT/OT TCU. 10/03/2024 Feeling great, anxious to get to rehab. Baseline creatinine 1.7 to 2, Creatinine 2.84, stop Bicarb drip. Renal ultrasound okay. Cipro 250mg po bid for E. Coli UTI. PT/OT for TCU. 10/04/2024 Admit to TCU with debility, here for rehabilitation, strengthening, prior to discharge home with roommate. [facility] Medical History (Updated 10/04/24 @ 19:[address] Gautam Hardy MD) Hypothyroidism Lymphedema Insomnia Obstructive sleep apnea Macrocytic anemia PAF (paroxysmal atrial fibrillation) Wears glasses Post-menopausal Open wound Arthritis Walker as ambulation aid Bladder disease History of renal disease Anemia DVT (deep venous thrombosis) Low iron High cholesterol Back pain Seizures Hoarseness Non-smoker CPAP (continuous positive airway pressure) dependence Leg cramps History of edema History of echocardiogram History of stress test Cardiology follow-up encounter Urinary incontinence Osteopenia Spinal osteophytosis Status epilepticus Complicated urinary tract infection Osteoporosis Osteoarthritis Venous insufficiency of both lower extremities Pulmonary hypertension Diastolic dysfunction Elevated parathyroid hormone Metabolic acidosis Preop cardiovascular exam H/O hemorrhoids (HFpEF) heart failure with preserved ejection fraction History of pulmonary embolus (PE) COVID-19 (01/19/21) MRSA (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 07/25/21 Unknown History nitroglycerin 0.4 mg sublingual 0.4 mg sublingual Q5M PRN chest 06/27/22 Unknown Rx tablet pain #30 tabs polyethylene glycol 3350 17 gram 17 g PO DAILY bowel mobility #30 ea 06/09/23 09/28/24 Rx oral powder packet fluorometholone 0.1 % eye 1 drp ophthalmic (eye) BID eyes 02/24/24 09/27/24 History drops,suspension atorvastatin 40 mg tablet 40 mg PO QHS cholesterol 05/18/24 10/03/24 History ferrous sulfate 324 mg (65 mg 324 mg PO DAILY Supplement 05/18/24 10/03/24 History iron) tablet,delayed release levothyroxine 125 mcg tablet 125 mcg PO DAILY thyroid 05/18/24 10/04/24 History acetaminophen 325 mg tablet 650 mg (2 x 325 mg) PO TID pain #1 06/09/24 09/27/24 Rx TAB bisacodyl 10 mg rectal suppository 10 mg MS X1 PRN Constipation #1 ea 06/09/24 Unknown Rx calcium acetate(phosphat bind) 667 667 mg PO TIDCM supplement #1 cap 06/09/24 10/04/24 Rx mg capsule magnesium hydroxide 400 mg/5 mL 30 ml PO X1 PRN Constipation #30 mL 06/09/24 09/28/24 Rx oral suspension mirtazapine 15 mg tablet 7.5 mg (1/2 x 15 mg) PO 2000 06/09/24 09/28/24 Rx antidepressant #1 TAB sennosides 8.6 mg-docusate sodium 2 tab PO BID constipation #1 TAB 06/09/24 Unknown Rx 50 mg tablet (Stimulant Laxative Plus) cholecalciferol (vitamin D3) 25 50 mcg PO DAILY supplement 09/05/24 09/27/24 History mcg (1,000 unit) capsule furosemide 40 mg tablet 40 mg PO Q OTHER DAY Diuretic 09/05/24 09/28/24 History Held on 10/04/24. Instructions: Until restarted by nephrology lacosamide 100 mg tablet 100 mg PO BID Seizure control 09/05/24 10/04/24 History benzonatate 100 mg capsule 100 mg PO TID cough 09/06/24 09/27/24 History carvedilol 6.25 mg tablet 6.25 mg PO BID Blood pressure 09/28/24 10/04/24 History guaifenesin 600 mg tablet, 600 mg PO BID Cough 09/28/24 09/28/24 History extended release 12 hr multivitamin 1 tab PO DAILY Supplement 09/28/24 09/28/24 History zinc gluconate 50 mg tablet 50 mg PO DAILY supplement 09/28/24 09/28/24 History apixaban 5 mg tablet (Eliquis) 2.5 mg (1/2 x 5 mg) PO BID blood 10/04/24 10/04/24 Rx thinner #0 tabs gabapentin 100 mg capsule 100 mg PO TID pain 10/04/24 10/30/23 History gabapentin 300 mg capsule 100 mg (0.3333 x 300 mg) PO TID 10/04/24 09/28/24 Rx Neuropathy #1 cap lidocaine 5 % topical patch 1 patch topical DAILY pain #0 ea 10/04/24 10/04/24 Rx sodium bicarbonate 650 mg tablet 650 mg PO 4X/DAY supplement #0 tabs 10/04/24 10/04/24 Rx Allergy/AdvReac Type Severity Reaction Status Date / Time cefazolin (From Kezol) Allergy Severe hives/difficulty Verified 09/28/24 22:23 swallowing ibuprofen Allergy Unknown Rash Verified 09/28/24 22:23 peanut Allergy Anaphylaxis Verified 09/28/24 22:23 Sulfa (Sulfonamide Allergy Unknown Verified 09/28/24 22:23 Antibiotics) sulfamethoxazole (From Allergy Other Verified 09/28/24 22:23 Bactrim) trimethoprim (From Bactrim) Allergy Other Verified 09/28/24 22:23 Family History Mother Cancer uterine Father No problems noted. Surgical History History of esophagogastroduodenoscopy (EGD) Hx of colonoscopy Hx of left cataract extraction History of dental surgery History of open reduction and internal fixation (ORIF) procedure History of cardiac catheterization Hx laparoscopic cholecystectomy H/O shoulder replacement History of left heart catheterization (08/01/22) History of dilatation and curettage History of hysteroscopy History of bilateral knee replacement History of herniorrhaphy Status post debridement History of open reduction and internal fixation (ORIF) procedure H/O hemorrhoidectomy History of gastric bypass Social History household members: other details: She has a roomate housing: house number of children: 1 current occupational status: retired pets and animals: Yes pets and animals: dog(s) Smoking Status: Never smoker alcohol intake: never substance use type: does not use caffeine: Yes Type: coffee Number of servings: 3 ROS Constitutional Constitutional: Reports weakness; Denies chills, fever(s) or weight gain ENT HEENT: Denies headache(s), nasal congestion or nasal discharge Cardiovascular Cardiovascular: Denies chest pain or palpitations Respiratory/Chest Respiratory/Chest: Denies cough, excessive phlegm production or shortness of breath with exertion Gastrointestinal Gastrointestinal: Denies abdominal pain, nausea or vomiting Genitourinary Genitourinary: Denies dysuria Musculoskeletal Musculoskeletal: Denies joint pain or joint swelling Integumentary Integumentary: Denies rash or wounds Neurologic Neurologic: Denies focal weakness, numbness or tingling Psychiatric Psychiatric: Denies anxiety, auditory hallucinations, depression, homicidal ideation or suicidal ideation Vital Signs Vital Signs Vital Signs: 10/04/24 14:33 10/04/24 14:33 10/04/24 15:35 Temperature 97.7 F L Temperature Source Oral Pulse Rate 111 H Pulse Rhythm Regular Pulse Strength Normal (2+) Normal (2+) Respiratory Rate 20 H 16 Respiratory Depth Normal Respiratory Pattern Normal Blood Pressure 101/63 Blood Pressure Mean 75 Blood Pressure Source Blood Pressure Position Blood Pressure Location Pulse Ox 96 Oxygen Delivery Method Room Air Room Air 10/04/24 18:07 Temperature Temperature Source Pulse Rate 114 H Pulse Rhythm Pulse Strength Respiratory Rate 18 Respiratory Depth Respiratory Pattern Blood Pressure 136/75 H Blood Pressure Mean 95 Blood Pressure Source Monitor Blood Pressure Position Sitting Blood Pressure Location Left Arm Pulse Ox 94 Oxygen Delivery Method Room Air Weight Weight: 120.741 kg Body Mass Index (BMI) 48.6 Physical Exam Const alert General Appearance: cooperative HEENT normocephalic Eyes PERRL and EOMs intact bilaterally Neck supple, no JVD and no carotid bruits Resp normal respiratory effort, normal air movement and clear to auscultation bilaterally Cardio regular rate and regular rhythm GI normal to inspection, nondistended, normoactive bowel sounds, non-tender and non-distended Extremity normal capillary refill General Extremity: Negative for edema Skin no rashes or lesions noted General Skin Exam: no breakdown Psych affect normal Appearance: appropriate Assessment & Plan Assessment/Plan (1) Debility: (2) Toxic metabolic encephalopathy: (3) Metabolic acidosis: (4) Left knee pain: (5) Tremulousness: (6) Hyperkalemia: (7) UTI (urinary tract infection): (8) Bilateral knee pain: (9) DVT (deep venous thrombosis): (10) Seizure disorder: (11) Hypothyroidism: QUALIFIERS: Hypothyroidism type: unspecified Qualified Code(s): E03.9 - Hypothyroidism, unspecified (12) Lymphedema: (13) (HFpEF) heart failure with preserved ejection fraction: (14) Obstructive sleep apnea: (15) Essential (primary) hypertension: (16) BMI 45.0-49.9, adult: (17) Coronary artery disease: (18) Hyperlipidemia: (19) Iron deficiency anemia: (20) GERD (gastroesophageal reflux disease): (21) Appetite loss: (22) Insomnia: QUALIFIERS: Insomnia type: unspecified Qualified Code(s): G47.00 - Insomnia, unspecified (23) Atrial fibrillation: PLAN: Plan 84 year old female with below past medical history hospitalized for encephalopathy 2/2 acute kidney injury, hyperkalemia, E. Coli UTI, metabolic acidosis, tremor, admitted to TCU with debility, here for rehabilitation, strengthening, prior to discharge home with roommate. Debility - PT/OT. Pain - Tylenol 1000mg tid, Oxycodone 5mg q4 prn pain (1-10), Lidoderm 1 patch td daily. Bowel - Miralax 17gm daily, senna/colace 2 tablets bid, Dulcolax 10mg pr daily prn. Adult immunization - Administer pneumonia vaccine, covid vaccine, flu vaccine as appropriate. DVT prophylaxis - Eliquis. Hyperlipidemia - Atorvastatin 40mg qhs. Cough - Mucinex 600mg bid, Tessalon perles 100mg tid. CKD stage 4 - Dr. Albrecht. Hyperphosphatemia - Phoslo 667mg tidcm. Metabolic acidosis - Sodium bicarb 650mg 4x/day. Atrial fibrillation - Coreg 6.25mg bidcm, Eliquis 2.5mg bid. Coronary artery disease - Coreg 6.25mg bidcm, Eliquis 2.5mg bid, NTG 0.4mg sl q5m prn. Vitamin D deficiency - D3 50mcg daily. Iron deficiency anemia - Ferrous sulfate 325mg daily. Neuropathic pain - Gabapentin 100mg tid. Seizure disorder - Vimpat 100mg bid. Hypothyroidism - Levothyroxine 125mg daily. Skin irritation - Calmoseptine topical bid. Nutrition - MVI 1 tablet daily. Zinc deficiency - Zinc 50mg daily. The following psychotropic medication was present on admission: Mirtazapine 7.5mg qhs. Psychotropic medication therapy is indicated for a diagnosis of: Depression/Insomnia. Based on my clinical evaluation, continuation of the medication is necessary at this time. Gradual dose reduction plan (select one): ____ GDR will be attempted. Will monitor patient symptoms and behaviors in response to GDR. __x__ GRD contraindicated. Reason contraindicated:
[2024-10-04] MEDS: Senna/Docusate Sodium 1 Tablet 2 TABLET PO (21:23)
[2024-10-04] MEDS: 0.9% Saline Lock 10 ML Syringe IV (21:33)
[2024-10-04] MEDS: APIXABAN 2.5 MG TABLET (WCH) PO (21:52)
[2024-10-05 07:13] LABS: Hematocrit 28.9 % (37-47); Hemoglobin 8.9 g/dL (12.0-15.0); Immature Granulocytes Count 0.030 X10^3/uL (0.0-0.0); Mean Corp Hgb Conc 30.8 g/dL (32-36); Mean Corpuscular Volume 104.3 fL (81-99); Mean Platelet Vol. 13.3 fl (6.2-12.0); NRBC Flagged by Analyzer 0 % (0-5); Platelet Count 179 K/mm3 (150-450); RBC Distribution Width CV 14.7 % (11.6-14.6); RBC Distribution Width SD 56.3 fl (35.1-43.9); Red Blood Count 2.77 M/mm3 (4.2-5.4); White Blood Count 7.0 K/mm3 (4.4-11.0)
[2024-10-05 07:46] LABS: Anion Gap 11 (5-15); BUN 76 mg/dL (4-19); BUN/Creat Ratio 25.7 RATIO (10-20); Calcium,Total 8.1 mg/dL (7.6-11.0); Carbon Dioxide 25.1 mmol/L (21.0-32.0); Chloride 105 mmol/L (98-108); Estimated Creatinine Clearance 17.81 ml/min (50-250); Glucose 89 mg/dL (70-99); Potassium 4.7 mmol/L (3.3-5.1)
[2024-10-05 09:21] VITALS: BP 110/61; PULSE 71; RESP 18; TEMP 36.3; O2SAT 97
[2024-10-05] MEDS: Tuberculin,Purif.prot.deriv. 50 TU/ML Vial 0.1 ML ID (09:24)
[2024-10-05] MEDS: Lidocaine 5% Patch 1 PATCH TOPICAL (09:27)
[2024-10-05] MEDS: Polyethylene Glycol 3350 17 GM PACKET PO (09:27)
[2024-10-05] MEDS: APIXABAN 2.5 MG TABLET (WCH) PO ×2 (09:28→21:03)
[2024-10-05] MEDS: Cholecalciferol (VIT D3) 25 MCG TABLET (1,000 UNITS) 50 MCG PO (09:29)
[2024-10-05] MEDS: Senna/Docusate Sodium 1 Tablet 2 TABLET PO ×2 (09:29→21:03)
[2024-10-05] MEDS: Zinc Sulfate 50 mg zinc (220 mg) ORAL capsule PO (09:29)
[2024-10-05] MEDS: 0.9% Saline Lock 10 ML Syringe IV (09:33)
--- NOTE | 2024-10-05 14:46 | PHA.CONS_ITS ---
Documented by User: Merle Liu 10/05/24 15:25 TCU RX Drug Regimen Review Subjective/Objective Subjective/Objective Subjective: TCU Admission. 84 YOF presented to ER with lower extremity injury. Hospitalized for encephalopathy 2/2 acute kidney injury, hyperkalemia, E. Coli UTI, metabolic acidosis, tremor. Admitted to TCU with debility for strengthening and rehabilitation. Objective: Allergies cefazolin (From Kefzol) Allergy (Severe, Verified 09/28/24 22:23) hives/difficulty swallowing ibuprofen Allergy (Unknown, Verified 09/28/24 22:23) Rash peanut Allergy (Verified 09/28/24 22:23) Anaphylaxis process peanut, can eat peanuts, not example peanut butter Sulfa (Sulfonamide Antibiotics) Allergy (Verified 09/28/24 22:23) Unknown sulfamethoxazole (From Bactrim) Allergy (Verified 09/28/24 22:23) Other trimethoprim (From Bactrim) Allergy (Verified 09/28/24 22:23) Other Current Medications Generic Name Dose Route Start Last Admin Trade Name Freq PRN Reason Stop Dose Admin Acetaminophen 1,000 mg 10/04/24 22:00 10/05/24 13:10 Acetaminophen 500 Mg Tablet PO 1,000 mg TID VALERIO Administration Apixaban 2.5 mg 10/04/24 22:00 10/05/24 09:28 Apixaban 2.5 Mg Tablet ([facility]) PO 2.5 mg BID VALERIO Administration Atorvastatin Calcium 40 mg 10/04/24 22:00 10/04/24 21:23 Atorvastatin Calcium 40 Mg Tablet PO 40 mg QHS VALERIO Administration Benzonatate 100 mg 10/04/24 22:00 10/05/24 13:13 Benzonatate 100 Mg Capsule PO Not Given TID VALERIO Bisacodyl 10 mg 10/04/24 15:06 Bisacodyl 10 Mg Suppository RC X1 PRN Constipation Calamine/Phenol 1 applic 10/04/24 22:00 10/05/24 09:27 Menthol/Lanolin/Calamine/Znox 113 Gm Tube TOPICAL 1 applic BID VALERIO Administration Protocol Calcium Acetate 667 mg 10/04/24 17:45 10/05/24 11:03 Calcium Acetate 667 Mg Capsule PO 667 mg TIDCM VALERIO Administration Carvedilol 6.25 mg 10/04/24 17:00 10/05/24 09:28 Carvedil[facility] 6.25 Mg [facility] Protocol Cholecalciferol 50 mcg 10/05/24 10:00 10/05/24 09:29 Cholecalciferol (Vit D3) 25 Mcg Tablet (1,000 Units) PO 50 mcg DAILY VALERIO Administration Ferrous Sulfate 325 mg 10/05/24 12:00 10/05/24 11:03 Ferrous Sulfate 325 Mg Tablet PO 325 mg DAILY@1200 [facility] Administration Gabapentin 100 mg 10/04/24 22:00 10/05/24 13:10 Gabapentin 100 Mg Capsule PO 100 mg TID [facility] Administration Guaifenesin 600 mg 10/04/24 22:00 10/05/24 09:28 Guaifenesin 600 Mg Tablet PO 600 mg BID [facility] Administration Lacosamide 100 mg 10/04/24 22:00 10/05/24 09:29 Lacosamide 100 Mg Tablet PO 100 mg BID [facility] Administration Levothyroxine Sodium 125 mcg 10/05/24 06:00 10/05/24 05:34 Levothyroxine 125 Mcg Tablet PO 125 mcg DAILY@0600 [facility] Administration Lidocaine 1 patch 10/05/24 10:00 10/05/24 09:27 Lidocaine 5% Patch TOPICAL 1 patch DAILY [facility] Administration Protocol Mirtazapine 7.5 mg 10/04/24 20:00 10/04/24 21:17 Mirtazapine 15 Mg Tablet PO 7.5 mg 2000 [facility] Administration Multivitamins 1 tablet 10/05/24 08:00 10/05/24 09:28 Multivitamins,Therapeutic Tablet [facility] Administration Nitroglycerin 0.4 mg 10/04/24 15:23 Nitroglycerin (Inpatient Use) 0.4 Mg Tab.Subl SL Q5M PRN CARDIAC/CHEST PAIN Oxycodone HCl 5 mg 10/04/24 17:32 10/04/24 22:34 Oxycodone 5 Mg Tablet PO 5 mg Q4H PRN PRN Administration Pain Score 1-10 or Pre PT/OT Polyethylene Glycol 17 gm 10/05/24 10:00 10/05/24 09:27 Polyethylene Glycol 3350 17 Gm Packet PO 17 gm DAILY [facility] Administration Senna/Docusate Sodium 2 tablet 10/04/24 22:00 10/05/24 09:29 Senna/Docusate Sodium 1 Tablet PO 2 tablet BID VALERIO Administration Sodium Bicarbonate 650 mg 10/04/24 17:00 10/05/24 11:03 Sodium Bicarbonate 650 Mg Tablet PO 650 mg 4X/DAY VALERIO Administration Sodium Chloride 10 - 40 ml 10/04/24 15:51 10/05/24 09:33 0.9% Saline Lock 10 Ml Syringe IV 10 ml UD PRN Administration SALINE FLUSH Tuberculin PPD 0.1 ml 10/12/24 10:00 Tuberculin,Purif.Prot.Deriv. 50 Tu/Ml Vial ID 10/12/24 10:01 X1 ONE Zinc Sulfate 50 mg 10/05/24 10:00 10/05/24 09:29 Zinc Sulfate 50 Mg Zinc (220 Mg) Oral Capsule PO 50 mg DAILY VALERIO Administration Problem List Atrial fibrillation (Acute) Insomnia (Acute) Appetite loss (Acute) GERD (gastroesophageal reflux disease) (Acute) Iron deficiency anemia (Acute) Hyperlipidemia (Acute) Coronary artery disease (Acute) BMI 45.0-49.9, adult (Acute) Essential (primary) hypertension (Acute) Obstructive sleep apnea (Acute) (HFpEF) heart failure with preserved ejection fraction (Acute) Lymphedema (Acute) Hypothyroidism (Acute) DVT (deep venous thrombosis) (Acute) Toxic metabolic encephalopathy (Acute) Metabolic acidosis (Acute) Left knee pain (Acute) Tremulousness (Acute) Hyperkalemia (Acute) UTI (urinary tract infection) (Acute) Bilateral knee pain (Acute) Debility (Acute) Vital Signs Temp Pulse Resp BP Pulse Ox O2 Del Method 97.4 F L 71 18 110/61 97 Room Air 10/05/24 09:21 10/05/24 09:21 10/05/24 09:21 10/05/24 09:21 10/05/24 09:21 10/05/24 09:21 Oxygen Delivery Method Room Air Weight: 120.792 kg Body Mass Index (BMI) 49.0 Sodium 141 mmol/L (133-145) 10/05/24 07:00 Potassium 4.7 mmol/L (3.3-5.1) 10/05/24 07:00 Chloride 105 mmol/L (98-108) 10/05/24 07:00 Carbon Dioxide 25.1 mmol/L (21.0-32.0) 10/05/24 07:00 Anion Gap 11 (5-15) 10/05/24 07:00 BUN 76 mg/dL (4-19) H 10/05/24 07:00 Creatinine 2.96 mg/dL (0.70-1.20) H 10/05/24 07:00 Est GFR (MDRD) Non-Af 15 (>60) L 10/05/24 07:00 BUN/Creatinine Ratio 25.7 RATIO (10-20) H 10/05/24 07:00 Glucose 89 mg/dL (70-99) 10/05/24 07:00 Assessment/Plan: 1. Pain: acetaminophen 1000mg PO TID, lidocaine 5% patch 1 patch topical daily and oxycodone 5mg PO Q4H PRN pain 1-10. Resident has had 2 doses of oxycodone for pain scores of 8 and 9 in the back and left leg respectively. Please continue to monitor for increased pain, PRN usage, constipation, LFTs (last elevated on 10/02/24), respiratory depression, rash. 2. Bowel: Miralax 17gm PO daily, senna/docusate 2T PO BID and bisacodyl 10mg RC daily PRN constipation. No PRN doses given. Please continue to monitor for PRN usage and constipation. Last documented bowel movement was 10/05/24. 3. CAD/atrial fibrillation: carvedilol 6.25mg PO BIDCM, apixaban 2.5mg PO BID (age >80 and SCr >1.5mg/dL) and nitroglycerin 0.4mg SL Q5M PRN chest pain. No PRN doses given. Please continue to monitor for S/S of bleeding, hemoglobin (last 8.9g/dL), HR (range 71-114), BP (range 136/75 and 110/61), chest pain and PRN usage. 4. Hypothyroidism: levothyroxine 125mcg PO daily. Please continue to monitor TSH (last 07/25/24) and S/S of hypo/hyperglycemia. 5. Seizure disorder: lacosamide 100mg PO BID. Please continue to monitor for falls/fractures (BEERs), seizures, dizziness, vertigo, fatigue. 6. Hyperlipidemia: atorvastatin 40mg PO QHS. Please continue to monitor lipid panel (last 06/13/24), LFTs (last elevated AST 71U/L, ALT 218 U/L, alk phos 121U/L on 10/02/24) and muscle pain. 7. Cough: guaifenesin 600mg PO BID and benzonatate 100mg PO TID. Please continue to monitor for S/S of cough. 8. Neuropathic pain: gabapentin 100mg PO TID. Please consider changing frequency to daily as the max dose per day for CrCl of 17 mL/min is 200-700mg once daily. Thanks. Please continue to monitor for confusion, falls/fractures (BEERs) and renal function (BEERs). 9. Hyperphosphatemia: calcium acetate 667mg PO TIDCM. Please continue to monitor phosphorus (last 6.5mg/dL 10/02/24) and calcium (last 8.1mg/dL). 10. Metabolic acidosis: sodium bicarbonate 650mg PO 4x/day. Please continue to monitor CO2 (last 21.1mmol/L) and renal function. 11. Iron deficiency anemia: ferrous sulfate 325mg PO daily. Please continue to monitor hemoglobin (last 8.9g/dL), dark stools, constipation and iron studies (05/19/24). 12. Vitamin D deficiency/nutrition/zinc deficiency: cholecalciferol 50mcg PO daily, multivitamin 1T PO daily and zinc sulfate 50mg PO daily. Please continue to monitor vitamin D (last 06/13/24). 13. Skin irritation: Calmoseptine topical bid. Please continue to monitor. Assessment/Plan for indications treated with psychotropic medications: 1. Depression/insomnia: mirtazapine 7.5mg PO QHS. Please see physician note regarding GDR. Monitor for drowsiness, dizziness or confusion, appetite and body weight (can cause weight gain), dry mouth, abnormal movements/movement disorders (including akathisia, dyskinesia, acute dystonia or restless leg syndrome), suicidal thoughts or behaviors (Boxed Warning). Monitor for constipation. Last documented BM =10/05/24. Monitor lipids as indicated (can increase serum cholesterol and triglycerides). FLP =06/13/24. Monitor blood pressure. BP range since admission =136/75 and 110-61. Monitor for orthostatic hypotension, including postural dizziness, syncope or falls. Check orthostatic vital signs if suspicion of orthostasis. Monitor for efficacy including resident symptoms, behaviors and indications of distress. Monitor for tolerability including mental status, cognition, excessive sleepiness, withdrawal or decreased participation in activities and decline in physical functioning. Maximize use of nonpharmacologic/behavioral interventions to facilitate dose reduction or discontinuation as appropriate. Please evaluate the appropriateness of GDR unless contraindicated. If appropriate, GDR should be attempted in 2 separate quarters within the first year of use or admission to TCU. If GDR attempted, monitor resident symptoms/behaviors. Medical chart and medication regimen reviewed. The following medication irregularities or issues were identified: 1. Gabapentin 100mg PO TID. Please consider changing frequency to daily as the max dose per day for CrCl of 17 mL/min is 200-700mg once daily. Thanks. Date Date of Note: 10/05/24 Documented by User: Dr. Gautam Hardy MD 10/05/24 16:33 TCU RX Drug Regimen Review Provider Comments Provider responsibility Provider Comments to Recommendations by Pharmacy Disagree: Define (Gabapentin 100mg tid continuous churn buttermaker use, continue current dose.)
--- NOTE | 2024-10-05 15:24 | NURSING ---
Cartographic Engineer Note; Activities Asset: Complete Ting is independent in her choice of daily activities. 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 Ting has her smartphone, read, watches tv and has family and friends visiting. She will attend group activities when she is a bit better. Staff will remind her of weekly activities and respect her right to say no.
[2024-10-05 16:34] VITALS: BP 113/58; PULSE 106
[2024-10-05 16:43] VITALS: PULSE 100; RESP 18; O2SAT 96
--- NOTE | 2024-10-05 19:03 | CASEMGMT ---
Social Work SW met with patient to complete initial assessment. Pt known to this worker from previous stay. Verified contacts. Verified code status DNR-CCA, no intubation. Educated to Medicare benefit. Pt aware and voiced she used 76 days at [facility] and has 24 days remaining. SW informed pt her exhaustion day is 10/27. Pt's goal is to DC prior to that date with days remaining, but if she cannot, she is able to pay privately at $660/day, and will get reimbursed 80% from her private insurance company, pt reports. Pt shared her story from when she was DC'd from in June to her current admission. Pt's goal is to return home with her wound healed and strength regained. SW will continue to follow for DC planning. Yahaira Lincoln MSW [employer]
[2024-10-06 08:07] VITALS: BP 104/67; PULSE 76; RESP 16; TEMP 36.4; O2SAT 96
[2024-10-06] MEDS: Polyethylene Glycol 3350 17 GM PACKET PO (08:18)
[2024-10-06] MEDS: Lidocaine 5% Patch 1 PATCH TOPICAL (08:18)
[2024-10-06] MEDS: APIXABAN 2.5 MG TABLET (WCH) PO ×2 (08:19→21:16)
[2024-10-06] MEDS: Cholecalciferol (VIT D3) 25 MCG TABLET (1,000 UNITS) 50 MCG PO (08:20)
[2024-10-06] MEDS: Zinc Sulfate 50 mg zinc (220 mg) ORAL capsule PO (08:20)
[2024-10-06] MEDS: 0.9% Saline Lock 10 ML Syringe IV ×2 (08:21→21:28)
--- NOTE | 2024-10-06 08:53 | NURSING ---
Dressing to R thigh donor site changed per wound RN order. moderate amount of serous drainage on old dressing noted.
--- NOTE | 2024-10-06 10:57 | NURSING ---
Addendum entered by Ting Castro 10/06/24 15:45: dr holloway updated, lasix 20mg x5 days and BMP rechecks. Original Note: dr holloway notified of pt requesting something to help her sleep, new order for melatonin. also message left for dr holloway regarding pt with increased edema BLE's & hips. pt states she took lasix at home, none ordered here but pt BUN/CR elevated.
[2024-10-06 14:56] VITALS: RESP 18
--- NOTE | 2024-10-06 15:18 | CHAPLAIN ---
Type of Pastoral Visit _x__ Initial Visit ___ Follow-up Visit ___ On-call Visit ___ General Patient Visit ___ Spiritual Assessment ___ Family Conference ___ Bereavement ___ Rapid Response ___ Code Blue ___ Other (describe below) Pastoral Care Referral From _x__ Patient ___ Family ___ Nurse ___ Physician ___ Production Grader ___ Marketing Recruiter ___ Other (describe below) Sacrament/Intervention _x__ Active listening ___ Anointing ___ Restorationist ___ Bereavement ___ Communion ___ Jade exploration ___ ___ Life review _x__ Prayer ___ Reconciliation ___ Sacrament of Sick _x__ Supportive presence ___ Wedding ___ Other (describe below) Pastoral Comments patient was seen earlier this week in PCU; pt's son is with her now; pt is talkative and affirmative of spiritual care; pt states that she is doing better, is encouraged, thankful for son's presence, and asks for a prayer; pt also adds her own spoken prayer in the visit
[2024-10-06 17:42] LABS: Mucous, Urine 0 SEEN /hpf (<or=2+)
[2024-10-06 17:43] VITALS: BP 119/81; PULSE 102
[2024-10-06] MEDS: MELATONIN 3 MG TABLET PO (21:21)
--- NOTE | 2024-10-06 21:53 | NURSING ---
Lab contacted regarding UA results, lab states they have specimen and results are not ready yet,
[2024-10-06 23:00] LABS: Color, Urine Yellow (Yellow); Glucose, Dipstick Normal (Normal); Ketone-Dipstick Negative (Negative); Leukocyte Esterase-Dipstick 25 /ul (Negative); Nitrite-Dipstick Negative (Negative); Occult Blood-Urine Negative /ul (Negative); Protein-Dipstick 30 mg/dl (Negative); Specific Gravity, Urine 1.015 (1.002-1.030); Urine Bilirubin Dipstick Negative (Negative)
--- NOTE | 2024-10-06 23:16 | NURSING ---
UA with only partial results yet, others still pending.
[2024-10-07 00:53] LABS: Squamous Epithelial Cells - UA 0-5 SEEN /hpf (5-10)
[2024-10-07 00:55] LABS: Red Blood Cells-Urine 0-5 SEEN /hpf (0-5)
--- NOTE | 2024-10-07 06:04 | NURSING ---
Dr. Hardy updated with UA results via written communication, culture results still pending.
[2024-10-07 09:44] VITALS: BP 119/77; PULSE 103; RESP 16; TEMP 36.4; O2SAT 97
[2024-10-07] MEDS: Polyethylene Glycol 3350 17 GM PACKET PO (09:55)
[2024-10-07] MEDS: Lidocaine 5% Patch 1 PATCH TOPICAL (09:55)
[2024-10-07] MEDS: APIXABAN 2.5 MG TABLET (WCH) PO ×2 (09:55→22:06)
[2024-10-07] MEDS: Cholecalciferol (VIT D3) 25 MCG TABLET (1,000 UNITS) 50 MCG PO (09:56)
[2024-10-07] MEDS: Zinc Sulfate 50 mg zinc (220 mg) ORAL capsule PO (09:57)
--- NOTE | 2024-10-07 18:32 | NURSING ---
notified dr holloway of UA results- no new orders at this time
[2024-10-07] MEDS: MELATONIN 3 MG TABLET PO (22:08)
[2024-10-07] MEDS: Senna/Docusate Sodium 1 Tablet 2 TABLET PO (22:09)
[2024-10-07 23:16] VITALS: PULSE 95; RESP 16; O2SAT 99
[2024-10-08] MEDS: 0.9% Saline Lock 10 ML Syringe IV ×2 (05:25→20:43)
[2024-10-08 08:29] VITALS: BP 124/57; PULSE 76; RESP 18; TEMP 36.6; O2SAT 93
[2024-10-08] MEDS: Zinc Sulfate 50 mg zinc (220 mg) ORAL capsule PO (08:34)
[2024-10-08] MEDS: Senna/Docusate Sodium 1 Tablet 2 TABLET PO ×2 (08:34→20:34)
[2024-10-08] MEDS: APIXABAN 2.5 MG TABLET (WCH) PO ×2 (08:34→20:33)
[2024-10-08] MEDS: Cholecalciferol (VIT D3) 25 MCG TABLET (1,000 UNITS) 50 MCG PO (08:34)
[2024-10-08] MEDS: Polyethylene Glycol 3350 17 GM PACKET PO (08:35)
[2024-10-08] MEDS: Lidocaine 5% Patch 1 PATCH TOPICAL (08:35)
[2024-10-08 09:05] LABS: Anion Gap 11 (5-15); BUN 75 mg/dL (4-19); BUN/Creat Ratio 27.1 RATIO (10-20); Calcium,Total 7.9 mg/dL (7.6-11.0); Carbon Dioxide 23.5 mmol/L (21.0-32.0); Chloride 107 mmol/L (98-108); Estimated Creatinine Clearance 19.10 ml/min (50-250); Glucose 85 mg/dL (70-99); Potassium 5.0 mmol/L (3.3-5.1)
[2024-10-08] MEDS: MELATONIN 3 MG TABLET PO (20:35)
--- NOTE | 2024-10-09 06:57 | NURSING ---
Addendum entered by Aime Ocasio 10/09/24 07:26: Dr. Hardy responded via backline and acknowledged urine culture results, no new orders. Original Note: Received call from lab, patient urine culture positive for VRE, Dr. Hardy updated on positive VRE urine culture via secure backline, Enhanced barrier precautions put in place.
[2024-10-09 08:47] VITALS: BP 103/50; PULSE 94; RESP 17; TEMP 36.5; O2SAT 95
[2024-10-09] MEDS: APIXABAN 2.5 MG TABLET (WCH) PO ×2 (09:32→21:43)
[2024-10-09] MEDS: Lidocaine 5% Patch 1 PATCH TOPICAL (09:33)
[2024-10-09] MEDS: Senna/Docusate Sodium 1 Tablet 2 TABLET PO ×2 (09:34→21:44)
[2024-10-09] MEDS: Zinc Sulfate 50 mg zinc (220 mg) ORAL capsule PO (09:34)
[2024-10-09] MEDS: Cholecalciferol (VIT D3) 25 MCG TABLET (1,000 UNITS) 50 MCG PO (09:34)
[2024-10-09 16:47] VITALS: BP 120/67; PULSE 107
[2024-10-09] MEDS: MELATONIN 3 MG TABLET PO (21:43)
[2024-10-09] MEDS: 0.9% Saline Lock 10 ML Syringe IV (21:49)
[2024-10-10 09:09] VITALS: BP 127/72; PULSE 62; RESP 18; TEMP 36.1; O2SAT 95
[2024-10-10] MEDS: APIXABAN 2.5 MG TABLET (WCH) PO ×2 (09:11→21:06)
[2024-10-10] MEDS: Senna/Docusate Sodium 1 Tablet 2 TABLET PO ×2 (09:12→21:09)
[2024-10-10] MEDS: Cholecalciferol (VIT D3) 25 MCG TABLET (1,000 UNITS) 50 MCG PO (09:12)
[2024-10-10] MEDS: Zinc Sulfate 50 mg zinc (220 mg) ORAL capsule PO (09:12)
[2024-10-10] MEDS: Lidocaine 5% Patch 1 PATCH TOPICAL (09:13)
--- NOTE | 2024-10-10 09:33 | NURSING ---
Offered covid vaccine. Resident states she is up to date, does not need.
[2024-10-10] MEDS: 0.9% Saline Lock 10 ML Syringe IV (09:43)
[2024-10-10 09:51] VITALS: PULSE 62; RESP 18; O2SAT 95
--- NOTE | 2024-10-10 13:23 | NURSING ---
pt off unit via WC to wound center appt with Dr Lomax. Friend taking
--- NOTE | 2024-10-10 16:39 | NURSING ---
pt returned from appt at this time. new orders Hydrogel and bandaid to right thigh, change BID. Aquaphor to graft site RLE. Elevate legs above the heart TID as often as possible. CATHERINE to check blood flow ordered for October 13 @ 3pm.
--- NOTE | 2024-10-10 17:04 | NURSING ---
pt states that she does not take vimpat at home and feels it got started by accident. she was told by her neurologist that she had a seizure in April d/t being septic, so he had stopped the medication. dr holloway updated, dc'd vimpat.
[2024-10-10 17:13] VITALS: BP 125/67; PULSE 110
--- NOTE | 2024-10-10 18:23 | NURSING ---
LEGS ELEVATED IN PT RECLINER CHAIR WITH 3 PILLOW UNDER EACH LEG, PT REMINDED THAT WHEN SHE GETS INTO BED TONIGHT TO BE SURE TO ELEVATE LEGS ABOVE HEAR WITH FOOT OF BED AND PILLOWS. PT VERBALIZED UNDERSTANDING
[2024-10-10] MEDS: MELATONIN 3 MG TABLET PO (21:09)
[2024-10-10 21:15] VITALS: BP 117/63; PULSE 79; RESP 17; O2SAT 100
--- NOTE | 2024-10-10 21:30 | NURSING ---
Pt c/o increased pain in RLE. This nurse observed bright red, inflamed skin around wound on R suresh. Redrew edge lines for inflamed area. Note left for Dr. Hardy.
--- NOTE | 2024-10-11 03:30 | NURSING ---
Pt awakened from sleep d/t throbbing pain in RLE. Requested pain medicine. Leg appearance still swollen and inflamed. Will continue to monitor.
--- NOTE | 2024-10-11 08:07 | NURSING ---
dr hollowya notified of RLE redness & edema, new order for doppler RLE/JEANCARLOS wraps, cleocin and doxy for cellulitis.
[2024-10-11 08:11] VITALS: BP 125/80; PULSE 94; RESP 16; TEMP 36.5; O2SAT 97
[2024-10-11] MEDS: APIXABAN 2.5 MG TABLET (WCH) PO ×2 (08:14→21:49)
[2024-10-11] MEDS: Lidocaine 5% Patch 1 PATCH TOPICAL (08:14)
[2024-10-11] MEDS: Zinc Sulfate 50 mg zinc (220 mg) ORAL capsule PO (08:15)
[2024-10-11] MEDS: Cholecalciferol (VIT D3) 25 MCG TABLET (1,000 UNITS) 50 MCG PO (08:15)
[2024-10-11] MEDS: Senna/Docusate Sodium 1 Tablet 2 TABLET PO (08:15)
[2024-10-11 10:37] LABS: Anion Gap 11 (5-15); BUN 75 mg/dL (4-19); BUN/Creat Ratio 26.7 RATIO (10-20); Calcium,Total 7.9 mg/dL (7.6-11.0); Carbon Dioxide 22.3 mmol/L (21.0-32.0); Chloride 111 mmol/L (98-108); Estimated Creatinine Clearance 18.70 ml/min (50-250); Glucose 100 mg/dL (70-99); Potassium 4.1 mmol/L (3.3-5.1)
--- NOTE | 2024-10-11 11:35 | NURSING ---
spoke with semiconductor technician & doppler negative for DVT
--- NOTE | 2024-10-11 11:48 | NURSING ---
JEANCARLOS wraps not applied, pt has automatic compression sleeves for legs for lymphedema to be worn. pt only has one sleeve here and will rotate between legs.
--- NOTE | 2024-10-11 13:28 | NURSING ---
Compression sleeve applied to LT leg at this time, wound nurse wants to wait until CATHERINE is done on before pt uses sleeve on RLE.
--- NOTE | 2024-10-11 15:02 | WOUNDNOTE ---
wound photo: right thigh
--- NOTE | 2024-10-11 15:03 | WOUNDNOTE ---
wound photo: right lower leg
[2024-10-11 15:17] VITALS: BMI 49.6
[2024-10-11 16:41] VITALS: BP 102/53; PULSE 66
--- NOTE | 2024-10-11 16:53 | CASEMGMT ---
Social Work SW completed BIMS () and PHQ-2 () for MDS assessment. Yahaira Lincoln HOUSEKEEPING STAFF [employer]
[2024-10-11 18:00] VITALS: PULSE 66; RESP 18; O2SAT 97
--- NOTE | 2024-10-11 18:28 | NURSING ---
dr holloway updated regarding labs & doppler negative. new order to consult nephrology and continue lasix. extra dose ordered tonight.
[2024-10-11] MEDS: MELATONIN 3 MG TABLET PO (21:50)
--- NOTE | 2024-10-11 22:15 | NURSING ---
Wound care and dressing changed to Right upper thigh per order. Patient tolerated well. Wound care completed to RLE graft site, left DANIA per order. Patient tolerated well.
[2024-10-12 05:50] LABS: Hematocrit 26.9 % (37-47); Hemoglobin 7.9 g/dL (12.0-15.0); Immature Granulocytes Count 0.010 X10^3/uL (0.0-0.0); Mean Corp Hgb Conc 29.4 g/dL (32-36); Mean Corpuscular Volume 108.9 fL (81-99); Mean Platelet Vol. 13.2 fl (6.2-12.0); NRBC Flagged by Analyzer 0 % (0-5); Platelet Count 153 K/mm3 (150-450); RBC Distribution Width CV 14.2 % (11.6-14.6); RBC Distribution Width SD 56.0 fl (35.1-43.9); Red Blood Count 2.47 M/mm3 (4.2-5.4); White Blood Count 4.3 K/mm3 (4.4-11.0)
[2024-10-12 06:39] LABS: Anion Gap 12 (5-15); BUN 74 mg/dL (4-19); BUN/Creat Ratio 25.7 RATIO (10-20); Calcium,Total 8.0 mg/dL (7.6-11.0); Carbon Dioxide 21.9 mmol/L (21.0-32.0); Chloride 110 mmol/L (98-108); Estimated Creatinine Clearance 18.44 ml/min (50-250); Glucose 84 mg/dL (70-99); Potassium 4.3 mmol/L (3.3-5.1)
[2024-10-12 08:40] VITALS: BP 109/65; PULSE 111; RESP 18; TEMP 36.7; O2SAT 96
--- NOTE | 2024-10-12 09:01 | NURSING ---
Crm Specialist Note; MDS for 10/11/2024 Complete
[2024-10-12] MEDS: Lidocaine 5% Patch 1 PATCH TOPICAL (10:52)
[2024-10-12] MEDS: Tuberculin,Purif.prot.deriv. 50 TU/ML Vial 0.1 ML ID (10:53)
--- NOTE | 2024-10-12 11:11 | CASEMGMT ---
Social Work IDT met with patient and friend for care plan meeting. Discussed patient's progress in PT/OT/ST/SN/RDN. Educated to Medicare benefit. Provided pt/family with written communication of insurance process and copay coverage during stay. Pt's Medicare days exhaust 10/27. Pt's goal and is optimistic to DC on or before that date. Pt is progressing well, but still goals to improve endurance and ambulation. AUTO ROLLER reports pt will do well in pt's own environment. Pt confirmed. Pt requested to DC 10/21. Scheduled friend therapy training on 10/17 for car tx training. IDT agreeable. SW confirmed pt's wish for [facility]. Pt agreed. SW to coordinate. Pt appreciative. Plan: DC home with friend 10/21, [facility] PT/OT/SN Yahaira Lincoln MSW FOOD WRITER
[2024-10-12] MEDS: Cholecalciferol (VIT D3) 25 MCG TABLET (1,000 UNITS) 50 MCG PO (12:21)
[2024-10-12] MEDS: Zinc Sulfate 50 mg zinc (220 mg) ORAL capsule PO (12:22)
--- NOTE | 2024-10-12 13:30 | NURSING ---
Addendum entered by Jhonatan Frederick 10/12/24 16:42: Pt. returned to floor from ED Original Note: Per shift change report, pt. was experiencing nausea early this morning and had one episode of emesis following administration of 0600 medications. When breakfast trays where delivered to pt. rooms, pt. refused breakfast tray stating her stomach was still upset. This nurse offered pt. some toast and tea to try for breakfast as it might be more gentle on her stomach. Pt. agreeable to this and ate toast and drank tea. Following pt. finishing meal pt. pressed call light, calling out she had vomited her breakfast. This nurse notified physician of situation, new order for Zofran otd 8mg q8 prn was ordered. Zofran administered by this nurse. After administration this nurse followed up with pt. to assess effectiveness of medication. Pt. stated medication was ineffective in relieving her nausea. Pt. fell asleep briefly following this, and was awaken during lunch. Pt. friend brought pt. soup to eat for lunch. Pt. ate soup and stated she was still nauseated but her stomach did feel better. Physician notified of zofran being ineffective for nausea. New order per physician for Compazine 10mg q6 prn. Pt. stated she thinks she would be able to tolerate daily scheduled medications with taking the Compazine due to her nausea having some improvement. This nurse administered pt. medication. After administration of medication pt. called out via call light system again stating she was beginning to dry heave. This nurse entered pt. room to assess situation. Pt. told this nurse she was experiencing chest pain and it was a feeling I have never had before. This nurse asked pt. to describe pain. Pt. stated it was a burning sensation in her chest. This nurse ordered EKG for pt. Respiratory quickly came to pt. room and completed EKG. EKG results showed A-Fib with RVR and a HR of 131. This nurse notified physician of situation and findings. Physician ordered for pt. to be sent to ED for further evaluation. Verbal report called to ED by this nurse, and pt. transferred to ED.
--- NOTE | 2024-10-12 14:06 | NURSING ---
Call from Dr. Jackson about resident being moved to ER. Updated him on events from today including ongoing nausea, chest pain, and EKG results.
[2024-10-12 17:03] VITALS: BP 121/81; PULSE 92; RESP 18; TEMP 36.4; O2SAT 96
[2024-10-12] MEDS: MELATONIN 3 MG TABLET PO (21:37)
[2024-10-12] MEDS: Senna/Docusate Sodium 1 Tablet 2 TABLET PO (21:38)
[2024-10-13 06:22] LABS: Hematocrit 28.5 % (37-47); Hemoglobin 8.3 g/dL (12.0-15.0)
[2024-10-13] MEDS: Zinc Sulfate 50 mg zinc (220 mg) ORAL capsule PO (09:35)
[2024-10-13] MEDS: Cholecalciferol (VIT D3) 25 MCG TABLET (1,000 UNITS) 50 MCG PO (09:35)
[2024-10-13] MEDS: Lidocaine 5% Patch 1 PATCH TOPICAL (09:37)
[2024-10-13] MEDS: Polyethylene Glycol 3350 17 GM PACKET PO (09:40)
[2024-10-13] MEDS: Senna/Docusate Sodium 1 Tablet 2 TABLET PO ×2 (09:40→21:41)
[2024-10-13 11:33] VITALS: BP 105/69; PULSE 86; RESP 18; TEMP 36.1; O2SAT 96
[2024-10-13 17:50] VITALS: BP 128/69; PULSE 80; RESP 18; O2SAT 97
--- NOTE | 2024-10-13 19:49 | NURSING ---
Addendum entered by Aime Ocasio 10/13/24 19:56: Dr. Cruz updated on consult via backline, responded OK, Please keep her npo after midnight. Original Note: Dr. Hardy updated via phone call on positive occult blood stool results, consult Dr. Cruz, verified by read back and acknowledged.
[2024-10-13] MEDS: MELATONIN 3 MG TABLET PO (21:38)
--- NOTE | 2024-10-14 00:01 | NURSING ---
NPO at this time per order for procedure with Dr. Cruz on 10/14/24
[2024-10-14 07:34] VITALS: BP 136/83; PULSE 82; RESP 18; TEMP 36.6; O2SAT 94
[2024-10-14] MEDS: Lidocaine 5% Patch 1 PATCH TOPICAL (07:46)
[2024-10-14 07:54] VITALS: BP 136/83; PULSE 82; RESP 18; TEMP 36.6; O2SAT 97; BMI 49.2
--- NOTE | 2024-10-14 12:17 | PCM.CONS.R ---
Assessment & Plan Assessment/Plan (1) Chronic renal failure (CRF), stage 4 (severe): PLAN: Baseline creatinine was around 1.5-1.6 with several fluctuations. Recent episode of JOSE with BUN more than 100 and creatinine more than 3. Creatinine is better. She has moderate amount of lower extremity edema. Increase Lasix to 40 mg once a day. HPI Consult Data Date of Consult: 10/14/24 HPI Narrative Reason for Consultation: JOSE HPI Narrative: MARI LOPEZ, is a 84 F who presents To the rehab after recent hospital stay. Nephrology on consultation in view of acute renal failure and CKD stage IIIb. She is known to me from office, baseline creatinine is around 1.5-1.6. Recently had an episode of JOSE. Currently denies any complaints. [facility] Medical History VRE (vancomycin resistant enterococcus) culture positive Hypothyroidism Lymphedema Insomnia Obstructive sleep apnea Macrocytic anemia PAF (paroxysmal atrial fibrillation) Wears glasses Post-menopausal Open wound Arthritis Walker as ambulation aid Bladder disease History of renal disease Anemia DVT (deep venous thrombosis) Low iron High cholesterol Back pain Seizures Hoarseness Non-smoker CPAP (continuous positive airway pressure) dependence Leg cramps History of edema History of echocardiogram History of stress test Cardiology follow-up encounter Urinary incontinence Osteopenia Spinal osteophytosis Status epilepticus Complicated urinary tract infection Osteoporosis Osteoarthritis Venous insufficiency of both lower extremities Pulmonary hypertension Diastolic dysfunction Elevated parathyroid hormone Metabolic acidosis Preop cardiovascular exam H/O hemorrhoids (HFpEF) heart failure with preserved ejection fraction History of pulmonary embolus (PE) COVID-19 (01/19/21) MRSA (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 07/25/21 Unknown History nitroglycerin 0.4 mg sublingual 0.4 mg sublingual Q5M PRN chest 06/27/22 Unknown Rx tablet pain #30 tabs polyethylene glycol 3350 17 gram 17 g PO DAILY bowel mobility #30 ea 06/09/23 09/28/24 Rx oral powder packet fluorometholone 0.1 % eye 1 drp ophthalmic (eye) BID eyes 02/24/24 09/27/24 History drops,suspension atorvastatin 40 mg tablet 40 mg PO QHS cholesterol 05/18/24 10/03/24 History ferrous sulfate 324 mg (65 mg 324 mg PO DAILY Supplement 05/18/24 10/03/24 History iron) tablet,delayed release levothyroxine 125 mcg tablet 125 mcg PO DAILY thyroid 05/18/24 10/04/24 History acetaminophen 325 mg tablet 650 mg (2 x 325 mg) PO TID pain #1 06/09/24 09/27/24 Rx TAB calcium acetate(phosphat bind) 667 667 mg PO TIDCM supplement #1 cap 06/09/24 10/04/24 Rx mg capsule magnesium hydroxide 400 mg/5 mL 30 ml PO X1 PRN Constipation #30 mL 06/09/24 09/28/24 Rx oral suspension mirtazapine 15 mg tablet 7.5 mg (1/2 x 15 mg) PO 2000 06/09/24 09/28/24 Rx antidepressant #1 TAB sennosides 8.6 mg-docusate sodium 2 tab PO BID constipation #1 TAB 06/09/24 Unknown Rx 50 mg tablet (Stimulant Laxative Plus) cholecalciferol (vitamin D3) 25 50 mcg PO DAILY supplement 09/05/24 09/27/24 History mcg (1,000 unit) capsule furosemide 40 mg tablet 40 mg PO Q OTHER DAY Diuretic 09/05/24 09/28/24 History Held on 10/04/24. Instructions: Until restarted by nephrology lacosamide 100 mg tablet 100 mg PO BID Seizure control 09/05/24 10/04/24 History carvedilol 6.25 mg tablet 6.25 mg PO BID Blood pressure 09/28/24 10/14/24 07:45 History multivitamin 1 tab PO DAILY Supplement 09/28/24 09/28/24 History zinc gluconate 50 mg tablet 50 mg PO DAILY supplement 09/28/24 09/28/24 History apixaban 5 mg tablet (Eliquis) 2.5 mg (1/2 x 5 mg) PO BID blood 10/04/24 10/04/24 Rx Held on 10/14/24. thinner #0 tabs Instructions: on hold for procedure gabapentin 100 mg capsule 100 mg PO TID pain 10/04/24 10/30/23 History gabapentin 300 mg capsule 100 mg (0.3333 x 300 mg) PO TID 10/04/24 09/28/24 Rx Neuropathy #1 cap lidocaine 5 % topical patch 1 patch topical DAILY pain #0 ea 10/04/24 10/14/24 07:45 Rx sodium bicarbonate 650 mg tablet 650 mg PO 4X/DAY supplement #0 tabs 10/04/24 10/04/24 Rx acetaminophen 500 mg tablet 1,000 mg PO TID 10/14/24 Unknown History (Tylenol Extra Strength) doxycycline monohydrate 100 mg 100 mg PO BID 10/14/24 Unknown History capsule furosemide 20 mg tablet (Lasix) 20 mg PO DAILY 10/14/24 Unknown History Allergy/AdvReac Type Severity Reaction Status Date / Time cefazolin (From Kefzol) Allergy Severe hives/difficulty Verified 09/28/24 22:23 swallowing ibuprofen Allergy Unknown Rash Verified 09/28/24 22:23 peanut Allergy Anaphylaxis Verified 09/28/24 22:23 Sulfa (Sulfonamide Allergy Unknown Verified 09/28/24 22:23 Antibiotics) sulfamethoxazole (From Allergy Other Verified 09/28/24 22:23 Bactrim) trimethoprim (From Bactrim) Allergy Other Verified 09/28/24 22:23 Family History Mother Cancer uterine Father No problems noted. Surgical History History of esophagogastroduodenoscopy (EGD) Hx of colonoscopy Hx of left cataract extraction History of dental surgery History of open reduction and internal fixation (ORIF) procedure History of cardiac catheterization Hx laparoscopic cholecystectomy H/O shoulder replacement History of left heart catheterization (08/01/22) History of dilatation and curettage History of hysteroscopy History of bilateral knee replacement History of herniorrhaphy Status post debridement History of open reduction and internal fixation (ORIF) procedure H/O hemorrhoidectomy History of gastric bypass Social History household members: other details: She has a roomate housing: house number of children: 1 current occupational status: retired pets and animals: Yes pets and animals: dog(s) Smoking Status: Never smoker alcohol intake: never substance use type: does not use caffeine: Yes Type: coffee Number of servings: 3 ROS ROS Narrative negative except above Physical Exam Narrative Alert awake oriented x 3 no obvious distress no pallor no icterus no JVD s1s2 no murmurs lungs clear abdomen soft no organomegaly no edema no cyanosis Lab / Micro Data 10/13/24 05:37 10/12/24 05:26 Micro: Microbiology 10/13/24 12:45 Stool Stool Occult Blood ([facility]) - Final Occult Blood Positive
--- NOTE | 2024-10-14 13:30 | NURSING ---
pt off unit via bed to endo at this time
--- NOTE | 2024-10-14 17:04 | NURSING ---
pt returned to floor at this time via bed
--- NOTE | 2024-10-14 17:13 | MDS.RN ---
dr rodgers wanting to do colonoscopy tomorrow, made pt npo after midnight. pt refusing feels its not necessary. dr rodgers texted, awaiting return call or text.
--- NOTE | 2024-10-14 17:18 | NURSING ---
dr rodgers texted, ok to DC NPO status.
[2024-10-14 17:58] VITALS: BP 123/70; PULSE 104
[2024-10-14 20:30] VITALS: PULSE 70; RESP 18; O2SAT 93
[2024-10-14] MEDS: MELATONIN 3 MG TABLET PO (21:08)
[2024-10-15 06:14] VITALS: PULSE 59; RESP 16; O2SAT 96
[2024-10-15 09:46] VITALS: BP 135/67; PULSE 80; RESP 18; TEMP 36.3; O2SAT 96
[2024-10-15] MEDS: Lidocaine 5% Patch 1 PATCH TOPICAL (10:02)
[2024-10-15] MEDS: Senna/Docusate Sodium 1 Tablet 2 TABLET PO (10:02)
[2024-10-15] MEDS: Zinc Sulfate 50 mg zinc (220 mg) ORAL capsule PO (10:03)
[2024-10-15] MEDS: Cholecalciferol (VIT D3) 25 MCG TABLET (1,000 UNITS) 50 MCG PO (10:03)
[2024-10-15 17:00] VITALS: BP 121/70; PULSE 64
--- NOTE | 2024-10-15 17:56 | NURSING ---
spoke to dr holloway about pt eyedrops- eye drops ordered
--- NOTE | 2024-10-15 18:07 | NURSING ---
notified dr holloway of egd results- no bleed- pt refused colonoscopy- eliquis to restart thursday
[2024-10-15] MEDS: FLUOROMETHOLONE ACETATE 1 DRP OPHTHALMIC (21:04)
[2024-10-15] MEDS: MELATONIN 3 MG TABLET PO (21:04)
[2024-10-16 10:34] VITALS: BP 116/67; PULSE 82; TEMP 36.4; O2SAT 96
[2024-10-16] MEDS: FLUOROMETHOLONE ACETATE 1 DRP OPHTHALMIC ×2 (10:38→20:55)
[2024-10-16] MEDS: Lidocaine 5% Patch 1 PATCH TOPICAL (10:38)
[2024-10-16] MEDS: Zinc Sulfate 50 mg zinc (220 mg) ORAL capsule PO (10:39)
[2024-10-16] MEDS: Senna/Docusate Sodium 1 Tablet 2 TABLET PO ×2 (10:39→20:57)
[2024-10-16] MEDS: Cholecalciferol (VIT D3) 25 MCG TABLET (1,000 UNITS) 50 MCG PO (10:39)
[2024-10-16 20:49] VITALS: BP 136/70; PULSE 80
[2024-10-16] MEDS: MELATONIN 3 MG TABLET PO (20:55)
--- NOTE | 2024-10-16 22:45 | NURSING ---
pt found to have icy hot present in room- pt states she has been using it for pain. this nurse explained the importance of only using medications we are aware of even if they are OTC- this nursemade dr holloway aware and left request for arthritic compound- icy hot locked up in med box at this time
[2024-10-17] MEDS: Senna/Docusate Sodium 1 Tablet 2 TABLET PO ×2 (09:48→22:44)
[2024-10-17] MEDS: APIXABAN 2.5 MG TABLET (WCH) PO ×2 (09:49→22:48)
[2024-10-17] MEDS: Zinc Sulfate 50 mg zinc (220 mg) ORAL capsule PO (09:49)
[2024-10-17] MEDS: Lidocaine 5% Patch 1 PATCH TOPICAL (09:50)
[2024-10-17] MEDS: FLUOROMETHOLONE ACETATE 1 DRP OPHTHALMIC ×2 (09:50→22:47)
[2024-10-17 09:57] VITALS: BP 137/60; PULSE 96; RESP 15; TEMP 36.3; O2SAT 94
--- NOTE | 2024-10-17 10:38 | MDS.RN ---
Information for the MDS was obtained from review of the clinical record, interview of resident, staff, and direct observation of resident?s care.
[2024-10-17] MEDS: Cholecalciferol (VIT D3) 25 MCG TABLET (1,000 UNITS) 50 MCG PO (10:39)
[2024-10-17] MEDS: Arthritis Pain Compound 60 CLICK TUBE TOPICAL ×2 (11:19→22:40)
--- NOTE | 2024-10-17 14:30 | WOUNDNOTE ---
Nursing had changed dressings to the right thigh/hip. will continue to monitor as needed.
--- NOTE | 2024-10-17 15:23 | NURSING ---
Pt Scheduled for CATHERINE test on 10/26/[address] Lomax office called to have them fax over order to scheduling for CATHERINE test.
--- NOTE | 2024-10-17 16:12 | CASEMGMT ---
Social Work SW spoke with pt to finalize DC plans. Pt is requesting to DC 10/20. IDT agreeable. SW confirmed pt's request for [facility] and no DME needs. friend to transport. - SAMIR phoned referral to [facility] for PT/OT/SN. SOC 10/21 - SAMIR updated pt. Plan: DC home with friend 10/20, [facility] PT/OT/SN Yahaira Lincoln [employer] ADMIN[employer]
[2024-10-17 17:45] VITALS: BP 142/95; PULSE 90
--- NOTE | 2024-10-17 18:52 | DS.PCM_ITS ---
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 EMERGENT Consult: No MD Notified: Yes Date Notified: 10/12/24 Time Notified: 10:59 Method of Notification: Answering Service Reason For Visit: ENCEPHALOPATHY/JOSE ON CKD & HYPERKALEMIA Diagnosis Discharge Diagnosis (1) Chronic renal failure (CRF), stage 4 (severe): Status: Acute Code(s): N18.4 - Chronic kidney disease, stage 4 (severe) Plan 84 year old female with below past medical history hospitalized for encephalopathy 2/2 acute kidney injury, hyperkalemia, E. Coli UTI, metabolic acidosis, tremor, admitted to TCU with debility, here for rehabilitation, strengthening, prior to discharge home with roommate. * Debility - PT/OT. * Pain - Tylenol 1000mg tid, Oxycodone 5mg q4 prn pain (1-10), Lidoderm 1 patch td daily. * Bowel - Miralax 17gm daily, senna/colace 2 tablets bid, Dulcolax 10mg pr daily prn. * Adult immunization - Administer pneumonia vaccine, covid vaccine, flu vaccine as appropriate. * DVT prophylaxis - Eliquis. * Hyperlipidemia - Atorvastatin 40mg qhs. * Cough - Mucinex 600mg bid, Tessalon perles 100mg tid. * CKD stage 4 - Dr. Albrecht. * Hyperphosphatemia - Phoslo 667mg tidcm. * Metabolic acidosis - Sodium bicarb 650mg 4x/day. * Atrial fibrillation - Coreg 6.25mg bidcm, Eliquis 2.5mg bid. * Coronary artery disease - Coreg 6.25mg bidcm, Eliquis 2.5mg bid, NTG 0.4mg sl q5m prn. * Vitamin D deficiency - D3 50mcg daily. * Iron deficiency anemia - Ferrous sulfate 325mg daily. * Neuropathic pain - Gabapentin 100mg tid. * Seizure disorder - Vimpat 100mg bid. * Hypothyroidism - Levothyroxine 125mg daily. * Skin irritation - Calmoseptine topical bid. * Nutrition - MVI 1 tablet daily. * Zinc deficiency - Zinc 50mg daily. The following psychotropic medication was present on admission: Mirtazapine 7.5mg qhs. Psychotropic medication therapy is indicated for a diagnosis of: Depression/Insomnia. Based on my clinical evaluation, continuation of the medication is necessary at this time. Gradual dose reduction plan (select one): ____ GDR will be attempted. Will monitor patient symptoms and behaviors in response to GDR. __x__ GRD contraindicated. Reason contraindicated: Medications at Discharge Home Medications levonorgestrel (Mirena) 1 mcg intrauterine ONCE . 07/25/21 nitroglycerin 0.4 mg sublingual tablet 0.4 mg sublingual Q5M PRN chest pain #30 tabs 06/27/22 polyethylene glycol 3350 17 gram oral powder packet 17 g PO DAILY bowel mobility #30 ea 06/09/23 fluorometholone 0.1 % eye drops,suspension 1 drp ophthalmic (eye) BID eyes 02/24/24 atorvastatin 40 mg tablet 40 mg PO QHS cholesterol 05/18/24 levothyroxine 125 mcg tablet 125 mcg PO DAILY thyroid 05/18/24 calcium acetate(phosphat bind) 667 mg capsule 667 mg PO TIDCM supplement #1 cap 06/09/24 sennosides 8.6 mg-docusate sodium 50 mg tablet (Stimulant Laxative Plus) 2 tab PO BID constipation #1 TAB 06/09/24 cholecalciferol (vitamin D3) 25 mcg (1,000 unit) capsule 50 mcg PO DAILY supplement 09/05/24 carvedilol 6.25 mg tablet 6.25 mg PO BID Blood pressure 09/28/24 multivitamin 1 tab PO DAILY Supplement 09/28/24 zinc gluconate 50 mg tablet 50 mg PO DAILY supplement 09/28/24 gabapentin 100 mg capsule 100 mg PO TID pain 10/04/24 Arthritis Pain Compound 3 click topical BID 30 days #60 GMS 10/17/24 acetaminophen 500 mg tablet 1,000 mg (2 x 500 mg) PO TID #0 tabs 10/17/24 apixaban 5 mg tablet (Eliquis) 2.5 mg (1/2 x 5 mg) PO BID 30 days #30 tabs 10/17/24 ferrous sulfate 325 mg (65 mg iron) tablet (FeroSul) 325 mg PO DAILY@1200 30 days #30 tabs 10/17/24 furosemide 40 mg tablet 40 mg PO DAILY #0 tabs 10/17/24 lidocaine 5 % topical patch 1 patch topical DAILY 30 days #30 ea 10/17/24 melatonin 3 mg tablet 3 mg PO QHS #0 tabs 10/17/24 mirtazapine 15 mg tablet 7.5 mg (1/2 x 15 mg) PO 2200 30 days #15 tabs 10/17/24 oxycodone 5 mg tablet 5 mg PO Q4H PRN PRN Pain Score 1-10 Or Pre Pt/Ot 7 days #42 tabs 10/17/24 sodium bicarbonate 650 mg tablet 650 mg PO 4X/DAY 30 days #120 tabs 10/17/24 Hospital Course Operations None Procedures EGD Summary of Care Provided Minutes Spent on Discharge: 35 Hospital Course: 84 year old female with below past medical history hospitalized for encephalopathy 2/2 acute kidney injury, hyperkalemia, E. Coli UTI, metabolic acidosis, tremor, admitted to TCU with debility, here for rehabilitation, strengthening, prior to discharge home with roommate. 10/14/2024 Dr. Cruz EGD: Impressions : - Normal esophagus. - Non-bleeding gastric ulcers with no stigmata of bleeding. 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 Treated with a heater probe. - No specimens collected. Recommendations : - Return patient to referring hospital for ongoing care. - Resume previous diet. - Continue present medications. Discharge home with friend 10/20/2024, [facility] PT/OT/SN. Physical Exam Const alert General Appearance: cooperative HEENT normocephalic Eyes PERRL and EOMs intact bilaterally Neck supple, no JVD and no carotid bruits Resp normal respiratory effort, normal air movement and clear to auscultation bilaterally Cardio regular rate and regular rhythm GI normal to inspection, nondistended, normoactive bowel sounds, non-tender and non-distended Extremity normal capillary refill General Extremity: Negative for edema Skin no rashes or lesions noted General Skin Exam: no breakdown Psych affect normal Appearance: appropriate Weight / BMI Weight Weight: 122.198 kg Body Mass Index (BMI) 49.2 ABG / Lab / Microbiology Data 10/13/24 05:37 10/12/24 05:26 Microbiology: Microbiology 10/13/24 12:45 Stool Stool Occult Blood (ALEC) - Final Occult Blood Positive 10/06/24 17:20 Urine, Catheterized Urine Culture - Final Vancomycin Resist. E. faecalis D/C Instructions Discharge Activity: Return to Normal Activity, May Shower and Use Walker Weight Bearing Status: Weight bearing as tolerated Call your doctor if you observe: Fever of 101 or Higher, Inability to urinate, Inability to have a bowel movement, Shortness of breath, Dizziness, Fainting spells, Swelling in the ankles, Chest pain and Uncontrolled pain DC O2, CPAP, BIPAP Needs Home O2 Discharge instructions: No Additional Instructions: Discharge home with friend 10/20/2024, [facility] PT/OT/SN. Meaningful Use Info Meaningful Use Meaningful Use Diagnoses (Choose all that apply): None applicable Discharge Plan Admission Admit Date/Time: 10/04/24 14:29 Primary Reason for Your Visit: Debility. Attending Provider: Gautam Hardy Chi Primary Care Provider: Miryam Wells Consulting Providers: Qian Albrecht Instructions Additional Instructions / Restrictions: Discharge home with friend 10/20/2024, [facility] PT/OT/SN. Discharge Orders/Prescriptions Prescriptions: New Arthritis Pain Compound 3 click topical BID 30 Days Qty: 60 0RF furosemide 40 mg Tablet 40 mg PO DAILY Qty: 0 0RF melatonin 3 mg Tablet 3 mg PO QHS Qty: 0 0RF acetaminophen 500 mg Tablet 1,000 mg PO TID Qty: 0 0RF sodium bicarbonate 650 mg Tablet 650 mg PO 4X/DAY 30 Days Qty: 120 0RF ferrous sulfate [FeroSul] 325 mg (65 mg iron) Tablet 325 mg PO DAILY@1200 30 Days Qty: 30 0RF lidocaine 5 % Adhesive Patch,Medicated 1 patch topical DAILY 30 Days Qty: 30 0RF Protocol: *Topical Application Instructions APPLICATION INSTRUCTIONS: affected area mirtazapine 15 mg Tablet 7.5 mg PO 2200 30 Days Qty: 15 0RF oxycodone 5 mg Tablet 5 mg PO Q4H PRN PRN (Reason: Pain Score 1-10 Or Pre Pt/Ot) 7 Days Qty: 42 0RF Eliquis 5 mg Tablet 2.5 mg PO BID 30 Days Qty: 30 0RF Continued Mirena 20 mcg/24 hours (7 yrs) 52 mg intrauterine device 1 mcg intrauterine ONCE cholecalciferol (vitamin D3) 25 mcg (1,000 unit) capsule 50 mcg PO DAILY nitroglycerin 0.4 mg tablet, sublingual 0.4 mg sublingual Q5M PRN (Reason: chest pain) Qty: 30 1RF Rx Instructions: do not exceed 3 doses per episode fluorometholone 0.1 % drops,suspension 1 drp ophthalmic (eye) BID carvedilol 6.25 mg tablet 6.25 mg PO BID multivitamin Tablet 1 tab PO DAILY zinc gluconate 50 mg tablet 50 mg PO DAILY gabapentin 100 mg capsule 100 mg PO TID polyethylene glycol 3350 17 gram Powder In Packet 17 g PO DAILY Qty: 30 0RF atorvastatin 40 mg tablet 40 mg PO QHS levothyroxine 125 mcg tablet 125 mcg PO DAILY Patient Comments: TAKE 1 TABLET BY MOUTH ONCE DAILY. TAKE ON EMPTY STOMACH. FOR THYROID. calcium acetate(phosphat bind) 667 mg Capsule 667 mg PO TIDCM Qty: 1 0RF sennosides-docusate sodium [Stimulant Laxative Plus] 8.6-50 mg Tablet 2 tab PO BID Qty: 1 0RF Discontinued lacosamide 100 mg tablet 100 mg PO BID furosemide 40 mg tablet 40 mg PO Q OTHER DAY Eliquis 5 mg Tablet 2.5 mg PO BID Qty: 0 0RF sodium bicarbonate 650 mg Tablet 650 mg PO 4X/DAY Qty: 0 0RF lidocaine 5 % Adhesive Patch,Medicated 1 patch topical DAILY Qty: 0 0RF Protocol: *Topical Application Instructions APPLICATION INSTRUCTIONS: left knee gabapentin 300 mg capsule 100 mg PO TID Qty: 1 0RF ferrous sulfate 324 mg (65 mg iron) tablet,delayed release (DR/EC) 324 mg PO DAILY acetaminophen 325 mg Tablet 650 mg PO TID Qty: 1 0RF magnesium hydroxide 400 mg/5 mL Suspension 30 ml PO X1 PRN (Reason: Constipation) Qty: 30 0RF mirtazapine 15 mg Tablet 7.5 mg PO 2000 Qty: 1 0RF furosemide [Lasix] 20 mg tablet 20 mg PO DAILY doxycycline monohydrate 100 mg capsule 100 mg PO BID acetaminophen [Tylenol Extra Strength] 500 mg tablet 1,000 mg PO TID Referrals / Follow Up: Tannhof,Miryam, REPAIR CAMERAMAN-C [Primary Care Provider] - Aime Lomax MD [Med Staff - Active Staff] - 10/24/24 9:15 am Disposition Disposition (needs filled in before D/C Order can be placed): Home Health Service
[2024-10-17] MEDS: MELATONIN 3 MG TABLET PO (22:47)
--- NOTE | 2024-10-17 22:59 | NURSING ---
Wound care and dressing changes completed per order. Pt tolerated well. Minimal serosanguineous drainage observed to R upper thigh wound.
[2024-10-18 06:00] VITALS: BMI 49.1
--- NOTE | 2024-10-18 09:28 | WOUNDNOTE ---
wound photo: right thigh
[2024-10-18 11:11] VITALS: BP 127/71; PULSE 81; RESP 17; TEMP 36.4; O2SAT 98
[2024-10-18] MEDS: Arthritis Pain Compound 60 CLICK TUBE TOPICAL ×2 (11:21→22:29)
[2024-10-18] MEDS: APIXABAN 2.5 MG TABLET (WCH) PO ×2 (11:22→22:34)
[2024-10-18] MEDS: Lidocaine 5% Patch 1 PATCH TOPICAL (11:22)
[2024-10-18] MEDS: FLUOROMETHOLONE ACETATE 1 DRP OPHTHALMIC ×2 (11:22→22:31)
[2024-10-18] MEDS: Cholecalciferol (VIT D3) 25 MCG TABLET (1,000 UNITS) 50 MCG PO (11:24)
[2024-10-18] MEDS: Zinc Sulfate 50 mg zinc (220 mg) ORAL capsule PO (11:24)
[2024-10-18 16:36] VITALS: BP 126/72; PULSE 80
[2024-10-18 22:00] VITALS: O2SAT 99
[2024-10-18] MEDS: MELATONIN 3 MG TABLET PO (22:35)
[2024-10-18] MEDS: Senna/Docusate Sodium 1 Tablet 2 TABLET PO (22:37)
[2024-10-19 05:49] LABS: Hematocrit 28.1 % (37-47); Hemoglobin 8.6 g/dL (12.0-15.0); Immature Granulocytes Count 0.010 X10^3/uL (0.0-0.0); Mean Corp Hgb Conc 30.6 g/dL (32-36); Mean Corpuscular Volume 105.2 fL (81-99); Mean Platelet Vol. 13.2 fl (6.2-12.0); NRBC Flagged by Analyzer 0 % (0-5); Platelet Count 185 K/mm3 (150-450); RBC Distribution Width CV 14.1 % (11.6-14.6); RBC Distribution Width SD 53.2 fl (35.1-43.9); Red Blood Count 2.67 M/mm3 (4.2-5.4); White Blood Count 4.6 K/mm3 (4.4-11.0)
[2024-10-19 06:21] LABS: Anion Gap 11 (5-15); BUN 53 mg/dL (4-19); BUN/Creat Ratio 19.7 RATIO (10-20); Calcium,Total 8.3 mg/dL (7.6-11.0); Carbon Dioxide 22.5 mmol/L (21.0-32.0); Chloride 110 mmol/L (98-108); Estimated Creatinine Clearance 20.12 ml/min (50-250); Glucose 80 mg/dL (70-99); Potassium 4.3 mmol/L (3.3-5.1)
[2024-10-19 08:23] VITALS: BP 131/81; PULSE 95; RESP 16; TEMP 36.4; O2SAT 98
[2024-10-19] MEDS: Lidocaine 5% Patch 1 PATCH TOPICAL (08:28)
[2024-10-19] MEDS: Senna/Docusate Sodium 1 Tablet 2 TABLET PO ×2 (08:28→21:33)
[2024-10-19] MEDS: APIXABAN 2.5 MG TABLET (WCH) PO ×2 (08:28→21:32)
[2024-10-19] MEDS: Cholecalciferol (VIT D3) 25 MCG TABLET (1,000 UNITS) 50 MCG PO (08:28)
[2024-10-19] MEDS: FLUOROMETHOLONE ACETATE 1 DRP OPHTHALMIC ×2 (08:28→21:32)
[2024-10-19] MEDS: Arthritis Pain Compound 60 CLICK TUBE TOPICAL ×2 (08:29→23:03)
[2024-10-19] MEDS: Zinc Sulfate 50 mg zinc (220 mg) ORAL capsule PO (08:29)
[2024-10-19 17:14] VITALS: BP 134/68; PULSE 85
[2024-10-19] MEDS: MELATONIN 3 MG TABLET PO (21:33)
--- NOTE | 2024-10-19 22:56 | NURSING ---
Dressing changes to R thigh skin graft donor site, R hip, and skin graft site on RLE completed as ordered. Moderate amount of serosanguinous drainage noted on R thigh skin graft donor site. Pt tolerated well. Repositioned for comfort. Call light within reach.
[2024-10-20 06:43] VITALS: PULSE 63; RESP 16; O2SAT 95
[2024-10-20 08:36] VITALS: BP 133/79; PULSE 116; RESP 17; TEMP 36.9; O2SAT 96
[2024-10-20] MEDS: Arthritis Pain Compound 60 CLICK TUBE TOPICAL (09:57)
[2024-10-20] MEDS: APIXABAN 2.5 MG TABLET (WCH) PO (09:57)
[2024-10-20] MEDS: FLUOROMETHOLONE ACETATE 1 DRP OPHTHALMIC (09:58)
[2024-10-20] MEDS: Lidocaine 5% Patch 1 PATCH TOPICAL (09:59)
[2024-10-20] MEDS: Cholecalciferol (VIT D3) 25 MCG TABLET (1,000 UNITS) 50 MCG PO (10:00)
[2024-10-20] MEDS: Zinc Sulfate 50 mg zinc (220 mg) ORAL capsule PO (10:00)
[2024-10-20] MEDS: Senna/Docusate Sodium 1 Tablet 2 TABLET PO (10:00)
[2024-10-20 11:32] VITALS: BP 125/74; PULSE 96; RESP 18; TEMP 36.9; O2SAT 96
== END 2024-10-20 11:10 | disposition home health service (06) | DRG 690 ==
PROVIDERS: Admitting Provider Family Medicine Geriatric Medicine; PCP Nurse Practitioner Family; Referring Provider Family Medicine Geriatric Medicine; Visit Provider Family Medicine Geriatric Medicine
DX: N39.0 Urinary tract infection, site not specified (principal); E87.20 Acidosis, unspecified; I13.0 Hypertensive heart and chronic kidney disease with heart failure and stage 1 through stage 4 chronic kidney disease, or unspecified chronic kidney disease; N17.9 Acute kidney failure, unspecified; L03.115 Cellulitis of right lower limb; N18.4 Chronic kidney disease, stage 4 (severe); Z68.42 Body mass index [BMI] 45.0-49.9, adult; I50.32 Chronic diastolic (congestive) heart failure; G40.909 Epilepsy, unspecified, not intractable, without status epilepticus; I48.0 Paroxysmal atrial fibrillation; D50.9 Iron deficiency anemia, unspecified; E03.9 Hypothyroidism, unspecified; F32.A Depression, unspecified; K25.9 Gastric ulcer, unspecified as acute or chronic, without hemorrhage or perforation; G62.9 Polyneuropathy, unspecified; E55.9 Vitamin D deficiency, unspecified; K21.9 Gastro-esophageal reflux disease without esophagitis; I89.0 Lymphedema, not elsewhere classified; E53.8 Deficiency of other specified B group vitamins; E78.00 Pure hypercholesterolemia, unspecified; D53.9 Nutritional anemia, unspecified; E87.5 Hyperkalemia; R25.1 Tremor, unspecified; I25.10 Atherosclerotic heart disease of native coronary artery without angina pectoris; G47.33 Obstructive sleep apnea (adult) (pediatric); E66.01 Morbid (severe) obesity due to excess calories; K31.819 Angiodysplasia of stomach and duodenum without bleeding; B96.20 Unspecified Escherichia coli [E. coli] as the cause of diseases classified elsewhere; Z86.16 Personal history of COVID-19; G47.00 Insomnia, unspecified; Z86.711 Personal history of pulmonary embolism; Z86.718 Personal history of other venous thrombosis and embolism; Z79.890 Hormone replacement therapy; Z79.899 Other long term (current) drug therapy; Z98.84 Bariatric surgery status
CPT/HCPCS: 36415; 80048; 81001; 82274; 85014; 85018; 85025; 87077; 87086; 87088; 87186; 92507; 92523; 93005; 97110; 97116; 97129; 97130; 97162; 97166; 97530; 97535; 97802; A4216

== ENCOUNTER → 2024-10-11 | Outpatient (CLI) | payer MEDICARE, OTHER, SELFPAY ==
--- NOTE | 2024-10-11 09:49 | VDLE_ITS ---
Reason For Study Reason For Study: Right leg swellig RIGHT GSV is normal. CFV is compressible, spontaneous, phasic, competent and demonstrates normal augmentation. FV is compressible, spontaneous, phasic, competent and demonstrates normal augmentation. POP V is compressible, spontaneous, phasic, competent and demonstrates normal augmentation. T/P Trunk is compressible. PTV is compressible. RT PerV is compressible. Procedure This is a venous duplex using B-mode, color flow and spectral Doppler. Exam performed portable in patient room. Technically difficult due to patient body habitus. A preliminary report was called and/or faxed to TCU. VL/Venous Duplex US, Unilateral Interpretation Summary Deep veins of the right lower extremity are patent and compressible segmentally . There is no evidence of right lower extremity deep vein thrombosis. The right great saphenous vein appears patent a nd compressible segmentally. Ordering Physician: Gautam Hardy Chi Referring Physician: Miryam Wells Performed By: Charlette Shane RVT
== END | disposition home or self-care (01) ==
LOC: CVS 09:44
PROVIDERS: PCP Nurse Practitioner Family; Referring Provider Family Medicine Geriatric Medicine; Visit Provider Family Medicine Geriatric Medicine
DX: M79.89 Other specified soft tissue disorders (principal)
CPT/HCPCS: 93971

== ENCOUNTER 2024-10-12 13:34 | Emergency (ER) | payer MEDICARE, OTHER, SELFPAY ==
[2024-10-12 13:35] VITALS: BP 128/80; PULSE 102; RESP 16; TEMP 36.6; O2SAT 95; BMI 56.0
--- NOTE | 2024-10-12 14:00 | EX.ED.DYSGE1 ---
HPI History of Present Illness Chief Complaint: Chest Pain Detail of Chief Complaint: Nausea all day with vomiting x 2 and palpitations Informant: patient Onset/Context/Timing Onset: Today Context: Sudden Onset Timing: Continuous (The nausea is continuous. The palpitations is intermittent) Quality: The not feel well and feels sick to her stomach and HPI narrative Location: GI and cardiac Current Severity: Mild Worsened by: Patient states her nausea is worse when she eats and she has vomited twice Relieved by: Apparently nothing Associated Symptoms Associated Symptoms: No other symptoms. Narrative Narrative: Patient is a 84-year-old woman. She is presently in the TCU floor. She was sent down because of nausea this been continuous since this morning. She has had 2 episodes of vomiting. Emesis without blood or coffee-ground's. She denies abdominal pain. She still feels nauseous. She has had no diarrhea or constipation. She is status post surgery several years ago. She denies chest pain, tightness, heaviness or pressure. She stated twice during the history and physical that she had palpitations, which she described as it is jumping out of my chest again. Patient denies shortness of breath. Patient does complain of chronic back pain that is unchanged from baseline. She is presently in the TCU for after hospitalization for cellulitis of right leg and skin graft. 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 She is on an anticoagulant. Patient did have an EKG performed in the TCU unit. The one that was ordered here will be canceled. She was in A-fib with RVR. Rate is 131. She has a left bundle branch block. She was durations 144 ms. QRS duration 354 ms. There is no acute ischemic changes noted. Prior similar symptoms: Yes Recent Illness/Hospitalization: Yes [facility] Medical History VRE (vancomycin resistant enterococcus) culture positive Hypothyroidism Lymphedema Insomnia Obstructive sleep apnea Macrocytic anemia PAF (paroxysmal atrial fibrillation) Wears glasses Post-menopausal Open wound Arthritis Walker as ambulation aid Bladder disease History of renal disease Anemia DVT (deep venous thrombosis) Low iron High cholesterol Back pain Seizures Hoarseness Non-smoker CPAP (continuous positive airway pressure) dependence Leg cramps History of edema History of echocardiogram History of stress test Cardiology follow-up encounter Urinary incontinence Osteopenia Spinal osteophytosis Status epilepticus Complicated urinary tract infection Osteoporosis Osteoarthritis Venous insufficiency of both lower extremities Pulmonary hypertension Diastolic dysfunction Elevated parathyroid hormone Metabolic acidosis Preop cardiovascular exam H/O hemorrhoids (HFpEF) heart failure with preserved ejection fraction History of pulmonary embolus (PE) COVID-19 (01/19/21) MRSA (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 07/25/21 Unknown History nitroglycerin 0.4 mg sublingual 0.4 mg sublingual Q5M PRN chest 06/27/22 Unknown Rx tablet pain #30 tabs polyethylene glycol 3350 17 gram 17 g PO DAILY bowel mobility #30 ea 06/09/23 09/28/24 Rx oral powder packet fluorometholone 0.1 % eye 1 drp ophthalmic (eye) BID eyes 02/24/24 09/27/24 History drops,suspension atorvastatin 40 mg tablet 40 mg PO QHS cholesterol 05/18/24 10/03/24 History ferrous sulfate 324 mg (65 mg 324 mg PO DAILY Supplement 05/18/24 10/03/24 History iron) tablet,delayed release levothyroxine 125 mcg tablet 125 mcg PO DAILY thyroid 05/18/24 10/04/24 History acetaminophen 325 mg tablet 650 mg (2 x 325 mg) PO TID pain #1 06/09/24 09/27/24 Rx TAB bisacodyl 10 mg rectal suppository 10 mg AR X1 PRN Constipation #1 ea 06/09/24 Unknown Rx calcium acetate(phosphat bind) 667 667 mg PO TIDCM supplement #1 cap 06/09/24 10/04/24 Rx mg capsule magnesium hydroxide 400 mg/5 mL 30 ml PO X1 PRN Constipation #30 mL 06/09/24 09/28/24 Rx oral suspension mirtazapine 15 mg tablet 7.5 mg (1/2 x 15 mg) PO 2000 06/09/24 09/28/24 Rx antidepressant #1 TAB sennosides 8.6 mg-docusate sodium 2 tab PO BID constipation #1 TAB 06/09/24 Unknown Rx 50 mg tablet (Stimulant Laxative Plus) cholecalciferol (vitamin D3) 25 50 mcg PO DAILY supplement 09/05/24 09/27/24 History mcg (1,000 unit) capsule furosemide 40 mg tablet 40 mg PO Q OTHER DAY Diuretic 09/05/24 09/28/24 History Held on 10/04/24. Instructions: Until restarted by nephrology lacosamide 100 mg tablet 100 mg PO BID Seizure control 09/05/24 10/04/24 History benzonatate 100 mg capsule 100 mg PO TID cough 09/06/24 09/27/24 History carvedilol 6.25 mg tablet 6.25 mg PO BID Blood pressure 09/28/24 10/04/24 History guaifenesin 600 mg tablet, 600 mg PO BID Cough 09/28/24 09/28/24 History extended release 12 hr multivitamin 1 tab PO DAILY Supplement 09/28/24 09/28/24 History zinc gluconate 50 mg tablet 50 mg PO DAILY supplement 09/28/24 09/28/24 History apixaban 5 mg tablet (Eliquis) 2.5 mg (1/2 x 5 mg) PO BID blood 10/04/24 10/04/24 Rx thinner #0 tabs gabapentin 100 mg capsule 100 mg PO TID pain 10/04/24 10/30/23 History gabapentin 300 mg capsule 100 mg (0.3333 x 300 mg) PO TID 10/04/24 09/28/24 Rx Neuropathy #1 cap lidocaine 5 % topical patch 1 patch topical DAILY pain #0 ea 10/04/24 10/04/24 Rx sodium bicarbonate 650 mg tablet 650 mg PO 4X/DAY supplement #0 tabs 10/04/24 10/04/24 Rx Allergy/AdvReac Type Severity Reaction Status Date / Time cefazolin (From Kefzol) Allergy Severe hives/difficulty Verified 09/28/24 22:23 swallowing ibuprofen Allergy Unknown Rash Verified 09/28/24 22:23 peanut Allergy Anaphylaxis Verified 09/28/24 22:23 Sulfa (Sulfonamide Allergy Unknown Verified 09/28/24 22:23 Antibiotics) sulfamethoxazole (From Allergy Other Verified 09/28/24 22:23 Bactrim) trimethoprim (From Bactrim) Allergy Other Verified 09/28/24 22:23 Family History Mother Cancer uterine Father No problems noted. Surgical History History of esophagogastroduodenoscopy (EGD) Hx of colonoscopy Hx of left cataract extraction History of dental surgery History of open reduction and internal fixation (ORIF) procedure History of cardiac catheterization Hx laparoscopic cholecystectomy H/O shoulder replacement History of left heart catheterization (08/01/22) History of dilatation and curettage History of hysteroscopy History of bilateral knee replacement History of herniorrhaphy Status post debridement History of open reduction and internal fixation (ORIF) procedure H/O hemorrhoidectomy History of gastric bypass Social History household members: other details: She has a roomate housing: house number of children: 1 current occupational status: retired pets and animals: Yes pets and animals: dog(s) Smoking Status: Never smoker alcohol intake: never substance use type: does not use caffeine: Yes Type: coffee Number of servings: 3 ROS ROS ED Constitutional Constitutional ED: Denies chills, fever(s), subjective, sweats or weight loss Eyes Eyes: Denies blurry vision or change in vision ENT ENT ED: Denies ear pain, rhinorrhea or sore throat Cardiovascular Cardiovascular: Reports palpitations; Denies chest pain, orthopnea or racing heartbeat Respiratory/Chest Respiratory/Chest: Denies cough, dyspnea, dyspnea on exertion or orthopnea Gastrointestinal Gastrointestinal: Reports nausea and vomiting; Denies abdominal pain, constipation, diarrhea or melena Genitourinary Genitourinary ED: Reports other Details: Patient states she had a recent UTI. She presently has no urinary symptoms. ; Denies dysuria, hematuria or urinary frequency Musculoskeletal Musculoskeletal: Denies arthralgias, back pain, myalgias or neck pain Integumentary Reports rash Neurologic Neurologic: Denies headache(s) or paresthesias Endocrine Endocrinology: Denies cold intolerance Hematologic/Lymphatic Hematologic/Lymphatic: Reports systems reviewed and no addt'l complaints, except as documented EXAM Physical Exam Const Vital Signs: 10/12/24 13:35 10/12/24 14:34 10/12/24 15:00 Temperature 97.8 F Temperature Source Oral Pulse Rate 102 H 83 102 H Respiratory Rate 16 17 19 H Blood Pressure 128/80 H 117/63 117/71 Blood Pressure Mean 96 81 86 Pulse Ox 95 95 92 Oxygen Delivery Method Room Air Room Air Room Air Positive well nourished and well developed Constitutional Narrative: Vital signs noted. She is slightly tachycardic. She appears in no distress. General Appearance ED: well developed and NAD HEENT Reports moist mucous membranes HEENT Narrative: Head is atraumatic and normocephalic. Ears normal. Nares patent. Posterior pharynx is normal Eyes PERRL and EOMs intact bilaterally General Eye ED: Negative for pale conjunctiva or scleral icterus Neck no lymphadenopathy and supple Neck Narrative: Unable to determine if patient has JVD due to body habitus, BMI 56 Chest Wall inspection of chest normal and palpation of chest normal Chest Narrative: She does have reproducible chest pain on the left which she describes as her jumping out of her chest. Of note when she states she was jumping out of her chest her heart rate was between 105 and 110. Resp normal respiratory effort and clear to auscultation bilaterally Cardio no murmurs Rhythm: abnormal rhythm irregularly irregular GI normal to inspection, nondistended, normoactive bowel sounds, non-tender, non-distended and no masses; Negative for hepatosplenomegaly GI Narrative: Abdominal exam is limited due to body habitus. Back/Spine no CVA tenderness Extremity Extremity Narrative: Or evidence of improving cellulitis right leg with skin graft noted. Skin graft is intact with no evidence of necrosis. Neuro oriented x3 and CN's II-XII intact bilaterally Sensorium / Orientation: alert Psych mental status grossly normal Skin Skin Narrative: Previously described under the extremity portion of the EMR MDM MDM MDM Narrative Medical decision making narrative: Suspect patient's palpitations is her A-fib with RVR. Since her heart rate now is controlled no treatment was undertaken at this time. She was treated with Zofran for nausea. Baseline blood work was obtained assess white count, H&H, renal function, glucose CO2 anion gap. Lab Data Attestation: I reviewed the patient's lab results. Lab results narrative: CBC reveals macrocytic anemia. Labs: Laboratory Results - last 24 hr 10/12/24 14:50 WBC 6.6 RBC 2.85 L Hgb 9.1 L Hct 31.0 L MCV 108.8 H MCH 31.9 MCHC 29.4 L RDW Std Deviation 57.7 H RDW Coeff of Parris 14.3 Plt Count 183 MPV 13.4 H Immature Gran % (Auto) 0.800 Neut % (Auto) 69.2 Lymph % (Auto) 19.0 [place] % (Auto) 5.3 Eos % (Auto) 5.2 H Baso % (Auto) 0.5 Absolute Neuts (auto) 4.6 Absolute Lymphs (auto) 1.25 Nucleated RBC % 0 Sodium 146 H Potassium 4.4 Chloride 111 H Carbon Dioxide 22.8 Anion Gap 12 BUN 72 H Creatinine 3.01 H Estim Creat Clear Calc 18.75 L Est GFR (MDRD) Non-Af 15 L BUN/Creatinine Ratio 23.9 H Glucose 97 Calcium 8.3 Total Bilirubin 0.23 AST 66 H ALT 100 H Alkaline Phosphatase 134 H Total Protein 5.8 L Albumin 3.1 L Globulin 2.7 Albumin/Globulin Ratio 1.1 Treatment and Re-Evaluation :: Patient was reassessed at 1600. She had to be awakened from sleep. She no longer has nausea. Since she did not pain but palpitations will discharge back to TCU. Her heart rate presently is 96. Discharge Plan Triage Chief Complaint: Chest Pain Other Complaint: Nausea/Vomiting ED Provider: Alexis Friend Dx/Rx/DC Orders Clinical Impression: Palpitations, Nausea & vomiting, Atrial fibrillation, chronic, Obstructive sleep apnea, Essential (primary) hypertension, BMI 45.0-49.9, adult, Anticoagulant long-term use Instructions: ED Vomiting (Adult) Prescriptions: No Action Mirena 20 mcg/24 hours (7 yrs) 52 mg intrauterine device 1 mcg intrauterine ONCE cholecalciferol (vitamin D3) 25 mcg (1,000 unit) capsule 50 mcg PO DAILY nitroglycerin 0.4 mg tablet, sublingual 0.4 mg sublingual Q5M PRN (Reason: chest pain) Qty: 30 1RF Rx Instructions: do not exceed 3 doses per episode lacosamide 100 mg tablet 100 mg PO BID furosemide 40 mg tablet 40 mg PO Q OTHER DAY fluorometholone 0.1 % drops,suspension 1 drp ophthalmic (eye) BID benzonatate 100 mg capsule 100 mg PO TID carvedilol 6.25 mg tablet 6.25 mg PO BID multivitamin Tablet 1 tab PO DAILY guaifenesin 600 mg tablet extended release 12hr 600 mg PO BID zinc gluconate 50 mg tablet 50 mg PO DAILY Eliquis 5 mg Tablet 2.5 mg PO BID Qty: 0 0RF sodium bicarbonate 650 mg Tablet 650 mg PO 4X/DAY Qty: 0 0RF lidocaine 5 % Adhesive Patch,Medicated 1 patch topical DAILY Qty: 0 0RF Protocol: *Topical Application Instructions APPLICATION INSTRUCTIONS: left knee gabapentin 300 mg capsule 100 mg PO TID Qty: 1 0RF gabapentin 100 mg capsule 100 mg PO TID polyethylene glycol 3350 17 gram Powder In Packet 17 g PO DAILY Qty: 30 0RF atorvastatin 40 mg tablet 40 mg PO QHS ferrous sulfate 324 mg (65 mg iron) tablet,delayed release (DR/EC) 324 mg PO DAILY levothyroxine 125 mcg tablet 125 mcg PO DAILY Patient Comments: TAKE 1 TABLET BY MOUTH ONCE DAILY. TAKE ON EMPTY STOMACH. FOR THYROID. acetaminophen 325 mg Tablet 650 mg PO TID Qty: 1 0RF bisacodyl 10 mg Suppository 10 mg AR X1 PRN (Reason: Constipation) Qty: 1 0RF calcium acetate(phosphat bind) 667 mg Capsule 667 mg PO TIDCM Qty: 1 0RF magnesium hydroxide 400 mg/5 mL Suspension 30 ml PO X1 PRN (Reason: Constipation) Qty: 30 0RF mirtazapine 15 mg Tablet 7.5 mg PO 2000 Qty: 1 0RF sennosides-docusate sodium [Stimulant Laxative Plus] 8.6-50 mg Tablet 2 tab PO BID Qty: 1 0RF Primary Care Provider: Miryam Wells Referrals: Miryam Wells NP-C [Primary Care Provider] - Activity Restrictions/Additional Instructions: Would recommend Zofran and ODT instead of Zofran tablets. Print Language: Hungarian Disposition Disposition: Home, Self Care
[2024-10-12 14:34] VITALS: BP 117/63; PULSE 83; RESP 17; O2SAT 95
[2024-10-12 15:00] VITALS: BP 117/71; PULSE 102; RESP 19; O2SAT 92
[2024-10-12 15:02] LABS: Hematocrit 31.0 % (37-47); Hemoglobin 9.1 g/dL (12.0-15.0); Immature Granulocytes Count 0.050 X10^3/uL (0.0-0.0); Mean Corp Hgb Conc 29.4 g/dL (32-36); Mean Corpuscular Volume 108.8 fL (81-99); Mean Platelet Vol. 13.4 fl (6.2-12.0); NRBC Flagged by Analyzer 0 % (0-5); Platelet Count 183 K/mm3 (150-450); RBC Distribution Width CV 14.3 % (11.6-14.6); RBC Distribution Width SD 57.7 fl (35.1-43.9); Red Blood Count 2.85 M/mm3 (4.2-5.4); White Blood Count 6.6 K/mm3 (4.4-11.0)
--- NOTE | 2024-10-12 15:17 | PCA ---
PT FRIEND, SHAWANDA LEFT ABOUT 1515, AND ASKED TO BE NOTIFIED WITH ANY CHANGES OR UPDATES
[2024-10-12 15:48] LABS: AST(SGOT) 66 U/L (<=31); Alanine Aminotransfer ALT/SGPT 100 U/L (<=34); Albumin, Serum 3.1 g/dL (3.4-4.8); Alkaline Phosphatase 134 U/L (35-104); Anion Gap 12 (5-15); BUN 72 mg/dL (4-19); BUN/Creat Ratio 23.9 RATIO (10-20); Calcium,Total 8.3 mg/dL (7.6-11.0); Carbon Dioxide 22.8 mmol/L (21.0-32.0); Chloride 111 mmol/L (98-108); Estimated Creatinine Clearance 18.75 ml/min (50-250); Globulin 2.7 g/dL (2.2-4.2); Glucose 97 mg/dL (70-99); Potassium 4.4 mmol/L (3.3-5.1)
[2024-10-12 16:10] VITALS: BP 122/67; PULSE 93; RESP 13; TEMP 36.6; O2SAT 94
== END 2024-10-12 16:32 | disposition home or self-care (01) ==
PROVIDERS: Emergency Provider Emergency Medicine; PCP Nurse Practitioner Family; Visit Provider Emergency Medicine
DX: R07.9 Chest pain, unspecified (principal); I11.0 Hypertensive heart disease with heart failure; I50.32 Chronic diastolic (congestive) heart failure; I48.20 Chronic atrial fibrillation, unspecified; E78.00 Pure hypercholesterolemia, unspecified; R11.2 Nausea with vomiting, unspecified; Z79.01 Long term (current) use of anticoagulants; R00.2 Palpitations; G47.33 Obstructive sleep apnea (adult) (pediatric); Z99.89 Dependence on other enabling machines and devices; Z79.899 Other long term (current) drug therapy; E03.9 Hypothyroidism, unspecified; Z79.890 Hormone replacement therapy; Z98.42 Cataract extraction status, left eye; Z90.49 Acquired absence of other specified parts of digestive tract; Z96.619 Presence of unspecified artificial shoulder joint; Z96.653 Presence of artificial knee joint, bilateral
CPT/HCPCS: 80053; 85025; 96374; 99284; J2405

== ENCOUNTER 2024-10-14 13:45 | Day surgery (SDC) | payer MEDICARE, OTHER, SELFPAY ==
[2024-10-14] VITALS (8 sets, daily range): BP systolic 105–125; BP diastolic 64–88; PULSE 72–126; RESP 16–18; TEMP 36.1–37.6; O2SAT 93–100; BMI 47.5
[2024-10-14] MEDS: Lactated Ringers 1,000 ML 15 ML IV (14:03)
--- NOTE | 2024-10-14 14:24 | PCM.PRE.AN2 ---
ASA Classification* ASA Classification ASA Classification: 3 Assessment & Plan Anesthesia* Anesthesia Assessment Anesthesia Assessment: Discussed sedation and/or anesthesia options, risks, benefits, and alternatives with patient/parents/legal guardian/POA. Questions invited. The patient/parents/legal guardian/POA seems to understand and agrees to proceed with anesthesia plan. Reviewed the physical assessment, medical history, allergy history and patient home medications list prior to surgery/procedure/anesthetic and documented any changes. Performed airway and anesthesia risk assessments. Anesthesia Type Anesthesia Type: MAC Anesthesia Focused Assessment* Temperature: 99.7 F Pulse Rate: 72 Blood Pressure: 115/75 Respiratory Rate: 17 Pulse Ox: 93 Airway Assessment Mouth opens: >3 cm Mallampati Score: II Labs Anesthesia Preop lab: CBC WBC 6.6 K/mm3 (4.4-11.0) 10/12/24 14:50 10/12/24 RBC 2.85 M/mm3 (4.2-5.4) L 10/12/24 14:50 10/12/24 Hgb 8.3 g/dL (12.0-15.0) L 10/13/24 05:37 10/13/24 Hct 28.5 % (37-47) L 10/13/24 05:37 10/13/24 Plt Count 183 K/mm3 (150-450) 10/12/24 14:50 10/12/24 CHEMISTRY Potassium 4.4 mmol/L (3.3-5.1) 10/12/24 14:50 10/12/24 Sodium 146 mmol/L (133-145) H 10/12/24 14:50 10/12/24 Magnesium 2.3 mg/dL (1.5-2.2) H 10/02/24 06:01 10/02/24 Phosphorus 6.5 mg/dL (2.7-4.5) H 10/02/24 06:01 10/02/24 BUN 72 mg/dL (4-19) H 10/12/24 14:50 10/12/24 Creatinine 3.01 mg/dL (0.70-1.20) H 10/12/24 14:50 10/12/24 Glucose 97 mg/dL (70-99) 10/12/24 14:50 10/12/24 POC Glucose 81 mg/dL (74-106) 09/29/24 12:34 09/29/24 TSH 1.750 uIU/mL (0.300-4.200) 07/25/24 05:16 07/25/24 COAG PT 16.1 SECONDS (11.7-14.9) H 05/02/24 19:47 05/02/24 Pre-Assessment Diagnosis/Proposed Procedure Planned Operative Procedure(s): EGD Anesthesia History 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 When Was Last Pacemaker Check QUESTION #4 FULL TEXT: You/Your Family Experience fever (hyperthermia) with Anesthesia Last Oral Intake Last Oral intake: Last Oral Intake NPO since 08:00 10/14/24 13:52 Meds taken in AM with sips of Yes 10/14/24 13:52 water? Meds patient instructed to take am of surgery PONV PONV - senior business broker: PONV - senior business broker Female HX of Motion Sickness HX of N/V After Surgery Non-Smoker Duration of Surgery greater than 60 minutes Number of Risk Factors PONV Score Height & Weight Height & Weight: Anesthesia: Height & Weight Height 5 ft 2 in 10/14/24 13:52 Weight: 117.934 kg 10/14/24 13:52 Body Mass Index (BMI) 47.5 10/14/24 13:52 Respiratory Assessment Respiratory Assessment - senior business broker: Respiratory Tract Infection Hx - senior business broker Hx Respiratory Tract Infection Yes 09/06/24 08:56 STOP Sleep Apnea STOP Sleep Apnea - senior business broker: STOP Sleep Apnea - senior business broker Hx Hypertension Yes 10/05/24 15:59 Hx Sleep Apnea No: reports negative test 10/04/24 14:33 recently CPAP Yes: DOESNT WEAR SINCE 09/06/24 09:45 GASTRIC BYPASS BIPAP No 09/02/24 11:04 Do you snore loudly (louder than talking or can be heard Do you often feel tired/ fatigued/ sleepy during daytime? Has anyone observed you stop breathing during sleep? STOP Results QUESTION #5 FULL TEXT : Do you snore loudly (louder than talking or can be heard through closed doors)? 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 Specify any problems Hx of Preganancy in last 3 Months Nurse Filling Out Transfusion & Questions: Date: Time: Patient unable to answer at this time (ie. confused, unrespo /Reproduction History /Reproductive History - senior business broker: /Reproductive Hx- senior business broker Hx Now Gestational Age (in weeks): EDC: Hx Hx Para Hx Section SAB No 09/02/24 11:04 Active Medications Active Medications: Current Medications Generic Name Dose Route Start Last Admin Trade Name Freq PRN Reason Stop Dose Admin Lactated Ringer's 1,000 mls @ 15 mls/hr 10/14/24 14:15 10/14/24 14:03 IV 15 mls/hr .Q48H VALERIO Administration PFSH Medical History VRE (vancomycin resistant enterococcus) culture positive Hypothyroidism Lymphedema Insomnia Obstructive sleep apnea Macrocytic anemia PAF (paroxysmal atrial fibrillation) Wears glasses Post-menopausal Open wound Arthritis Walker as ambulation aid Bladder disease History of renal disease Anemia DVT (deep venous thrombosis) Low iron High cholesterol Back pain Seizures Hoarseness Non-smoker CPAP (continuous positive airway pressure) dependence Leg cramps History of edema History of echocardiogram History of stress test Cardiology follow-up encounter Urinary incontinence Osteopenia Spinal osteophytosis Status epilepticus Complicated urinary tract infection Osteoporosis Osteoarthritis Venous insufficiency of both lower extremities Pulmonary hypertension Diastolic dysfunction Elevated parathyroid hormone Metabolic acidosis Preop cardiovascular exam H/O hemorrhoids (HFpEF) heart failure with preserved ejection fraction History of pulmonary embolus (PE) COVID-19 (01/19/21) MRSA (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 07/25/21 Unknown History nitroglycerin 0.4 mg sublingual 0.4 mg sublingual Q5M PRN chest 06/27/22 Unknown Rx tablet pain #30 tabs polyethylene glycol 3350 17 gram 17 g PO DAILY bowel mobility #30 ea 06/09/23 09/28/24 Rx oral powder packet fluorometholone 0.1 % eye 1 drp ophthalmic (eye) BID eyes 02/24/24 09/27/24 History drops,suspension atorvastatin 40 mg tablet 40 mg PO QHS cholesterol 05/18/24 10/03/24 History ferrous sulfate 324 mg (65 mg 324 mg PO DAILY Supplement 05/18/24 10/03/24 History iron) tablet,delayed release levothyroxine 125 mcg tablet 125 mcg PO DAILY thyroid 05/18/24 10/04/24 History acetaminophen 325 mg tablet 650 mg (2 x 325 mg) PO TID pain #1 06/09/24 09/27/24 Rx TAB calcium acetate(phosphat bind) 667 667 mg PO TIDCM supplement #1 cap 06/09/24 10/04/24 Rx mg capsule magnesium hydroxide 400 mg/5 mL 30 ml PO X1 PRN Constipation #30 mL 06/09/24 09/28/24 Rx oral suspension mirtazapine 15 mg tablet 7.5 mg (1/2 x 15 mg) PO 2000 06/09/24 09/28/24 Rx antidepressant #1 TAB sennosides 8.6 mg-docusate sodium 2 tab PO BID constipation #1 TAB 06/09/24 Unknown Rx 50 mg tablet (Stimulant Laxative Plus) cholecalciferol (vitamin D3) 25 50 mcg PO DAILY supplement 09/05/24 09/27/24 History mcg (1,000 unit) capsule furosemide 40 mg tablet 40 mg PO Q OTHER DAY Diuretic 09/05/24 09/28/24 History Held on 10/04/24. Instructions: Until restarted by nephrology lacosamide 100 mg tablet 100 mg PO BID Seizure control 09/05/24 10/04/24 History carvedilol 6.25 mg tablet 6.25 mg PO BID Blood pressure 09/28/24 10/14/24 07:45 History multivitamin 1 tab PO DAILY Supplement 09/28/24 09/28/24 History zinc gluconate 50 mg tablet 50 mg PO DAILY supplement 09/28/24 09/28/24 History apixaban 5 mg tablet (Eliquis) 2.5 mg (1/2 x 5 mg) PO BID blood 10/04/24 10/04/24 Rx Held on 10/14/24. thinner #0 tabs Instructions: on hold for procedure gabapentin 100 mg capsule 100 mg PO TID pain 10/04/24 10/14/24 History gabapentin 300 mg capsule 100 mg (0.3333 x 300 mg) PO TID 10/04/24 09/28/24 Rx Neuropathy #1 cap lidocaine 5 % topical patch 1 patch topical DAILY pain #0 ea 10/04/24 10/14/24 07:45 Rx sodium bicarbonate 650 mg tablet 650 mg PO 4X/DAY supplement #0 tabs 10/04/24 10/04/24 Rx acetaminophen 500 mg tablet 1,000 mg PO TID 10/14/24 10/14/24 History (Tylenol Extra Strength) doxycycline monohydrate 100 mg 100 mg PO BID 10/14/24 Unknown History capsule furosemide 20 mg tablet (Lasix) 20 mg PO DAILY 10/14/24 Unknown History Allergy/AdvReac Type Severity Reaction Status Date / Time cefazolin (From Kefzol) Allergy Severe hives/difficulty Verified 09/28/24 22:23 swallowing ibuprofen Allergy Unknown Rash Verified 09/28/24 22:23 peanut Allergy Anaphylaxis Verified 09/28/24 22:23 Sulfa (Sulfonamide Allergy Unknown Verified 09/28/24 22:23 Antibiotics) sulfamethoxazole (From Allergy Other Verified 09/28/24 22:23 Bactrim) trimethoprim (From Bactrim) Allergy Other Verified 06/25/25 22:23 Family History Mother Cancer uterine Father No problems noted. Surgical History History of esophagogastroduodenoscopy (EGD) Hx of colonoscopy Hx of left cataract extraction History of dental surgery History of open reduction and internal fixation (ORIF) procedure History of cardiac catheterization Hx laparoscopic cholecystectomy H/O shoulder replacement History of left heart catheterization (08/01/22) History of dilatation and curettage History of hysteroscopy History of bilateral knee replacement History of herniorrhaphy Status post debridement History of open reduction and internal fixation (ORIF) procedure H/O hemorrhoidectomy History of gastric bypass Social History household members: other details: She has a roomate housing: house number of children: 1 current occupational status: retired pets and animals: Yes pets and animals: dog(s) Smoking Status: Never smoker alcohol intake: never substance use type: does not use caffeine: Yes Type: coffee Number of servings: 3 Review of Systems (Anesthesia) ROS Narrative System reviewed and no additional complaints, except as documented.
--- NOTE | 2024-10-14 15:56 | PCM.HP.STD ---
HPI - General HPI Narrative 84 F who presents To the rehab after recent hospital stay. I was called to see the patient due to decrease in hemoglobin and patient is on anticoagulation with Eliquis twice a day for atrial fibrillation. [facility] Medical History VRE (vancomycin resistant enterococcus) culture positive Hypothyroidism Lymphedema Insomnia Obstructive sleep apnea Macrocytic anemia PAF (paroxysmal atrial fibrillation) Wears glasses Post-menopausal Open wound Arthritis Walker as ambulation aid Bladder disease History of renal disease Anemia DVT (deep venous thrombosis) Low iron High cholesterol Back pain Seizures Hoarseness Non-smoker CPAP (continuous positive airway pressure) dependence Leg cramps History of edema History of echocardiogram History of stress test Cardiology follow-up encounter Urinary incontinence Osteopenia Spinal osteophytosis Status epilepticus Complicated urinary tract infection Osteoporosis Osteoarthritis Venous insufficiency of both lower extremities Pulmonary hypertension Diastolic dysfunction Elevated parathyroid hormone Metabolic acidosis Preop cardiovascular exam H/O hemorrhoids (HFpEF) heart failure with preserved ejection fraction History of pulmonary embolus (PE) COVID-19 (01/19/21) MRSA (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 07/25/21 Unknown History nitroglycerin 0.4 mg sublingual 0.4 mg sublingual Q5M PRN chest 06/27/22 Unknown Rx tablet pain #30 tabs polyethylene glycol 3350 17 gram 17 g PO DAILY bowel mobility #30 ea 06/09/23 09/28/24 Rx oral powder packet fluorometholone 0.1 % eye 1 drp ophthalmic (eye) BID eyes 02/24/24 09/27/24 History drops,suspension atorvastatin 40 mg tablet 40 mg PO QHS cholesterol 05/18/24 10/03/24 History ferrous sulfate 324 mg (65 mg 324 mg PO DAILY Supplement 05/18/24 10/03/24 History iron) tablet,delayed release levothyroxine 125 mcg tablet 125 mcg PO DAILY thyroid 05/18/24 10/04/24 History acetaminophen 325 mg tablet 650 mg (2 x 325 mg) PO TID pain #1 06/09/24 09/27/24 Rx TAB calcium acetate(phosphat bind) 667 667 mg PO TIDCM supplement #1 cap 06/09/24 10/04/24 Rx mg capsule magnesium hydroxide 400 mg/5 mL 30 ml PO X1 PRN Constipation #30 mL 06/09/24 09/28/24 Rx oral suspension mirtazapine 15 mg tablet 7.5 mg (1/2 x 15 mg) PO 2000 06/09/24 09/28/24 Rx antidepressant #1 TAB sennosides 8.6 mg-docusate sodium 2 tab PO BID constipation #1 TAB 06/09/24 Unknown Rx 50 mg tablet (Stimulant Laxative Plus) cholecalciferol (vitamin D3) 25 50 mcg PO DAILY supplement 09/05/24 09/27/24 History mcg (1,000 unit) capsule furosemide 40 mg tablet 40 mg PO Q OTHER DAY Diuretic 09/05/24 09/28/24 History Held on 10/04/24. Instructions: Until restarted by nephrology lacosamide 100 mg tablet 100 mg PO BID Seizure control 09/05/24 10/04/24 History carvedilol 6.25 mg tablet 6.25 mg PO BID Blood pressure 09/28/24 10/14/24 07:45 History multivitamin 1 tab PO DAILY Supplement 09/28/24 09/28/24 History zinc gluconate 50 mg tablet 50 mg PO DAILY supplement 09/28/24 09/28/24 History apixaban 5 mg tablet (Eliquis) 2.5 mg (1/2 x 5 mg) PO BID blood 10/04/24 10/04/24 Rx Held on 10/14/24. thinner #0 tabs Instructions: on hold for procedure gabapentin 100 mg capsule 100 mg PO TID pain 10/04/24 10/14/24 History gabapentin 300 mg capsule 100 mg (0.3333 x 300 mg) PO TID 10/04/24 09/28/24 Rx Neuropathy #1 cap lidocaine 5 % topical patch 1 patch topical DAILY pain #0 ea 10/04/24 10/14/24 07:45 Rx sodium bicarbonate 650 mg tablet 650 mg PO 4X/DAY supplement #0 tabs 10/04/24 10/04/24 Rx acetaminophen 500 mg tablet 1,000 mg PO TID 10/14/24 10/14/24 History (Tylenol Extra Strength) doxycycline monohydrate 100 mg 100 mg PO BID 10/14/24 Unknown History capsule furosemide 20 mg tablet (Lasix) 20 mg PO DAILY 10/14/24 Unknown History Allergy/AdvReac Type Severity Reaction Status Date / Time cefazolin (From Kefzol) Allergy Severe hives/difficulty Verified 09/28/24 22:23 swallowing ibuprofen Allergy Unknown Rash Verified 09/28/24 22:23 peanut Allergy Anaphylaxis Verified 09/28/24 22:23 Sulfa (Sulfonamide Allergy Unknown Verified 09/28/24 22:23 Antibiotics) sulfamethoxazole (From Allergy Other Verified 09/28/24 22:23 Bactrim) trimethoprim (From Bactrim) Allergy Other Verified 09/28/24 22:23 Family History Mother Cancer uterine Father No problems noted. Surgical History History of esophagogastroduodenoscopy (EGD) Hx of colonoscopy Hx of left cataract extraction History of dental surgery History of open reduction and internal fixation (ORIF) procedure History of cardiac catheterization Hx laparoscopic cholecystectomy H/O shoulder replacement History of left heart catheterization (08/01/22) History of dilatation and curettage History of hysteroscopy History of bilateral knee replacement History of herniorrhaphy Status post debridement History of open reduction and internal fixation (ORIF) procedure H/O hemorrhoidectomy History of gastric bypass Social History household members: other details: She has a roomate housing: house number of children: 1 current occupational status: retired pets and animals: Yes pets and animals: dog(s) Smoking Status: Never smoker alcohol intake: never substance use type: does not use caffeine: Yes Type: coffee Number of servings: 3 ROS ROS Narrative negative except above Vital Signs Vital Signs Vital Signs: 10/14/24 13:52 10/14/24 13:52 10/14/24 14:24 Temperature 99.7 F H 99.7 F H Temperature Source Temporal Pulse Rate 72 72 Respiratory Rate 17 17 Respiratory Pattern Normal Blood Pressure 115/75 115/75 Blood Pressure Mean 88 Blood Pressure Source Monitor Blood Pressure Position Semi-Fowlers Blood Pressure Location Left Forearm Pulse Ox 93 93 Oxygen Delivery Method Room Air Weight Weight: 260 lb Body Mass Index (BMI) 47.5 Physical Exam Const alert, oriented x3, no apparent distress and healthy appearing General Appearance: cooperative GI normal to inspection, nondistended, normoactive bowel sounds, soft to palpation, non-tender and non-distended Percussion: normal to percussion Rectal Exam: deferred Assessment & Plan Assessment/Plan (1) Acute on chronic anemia: PLAN: Patient will undergo an egd to evaluate the upper GI tract
--- NOTE | 2024-10-14 16:20 | PCM.POST.ANE ---
Anesthesia: Postop Eval I Current Vital Signs Temperature: 97 F Pulse Rate: 126 Blood Pressure: 113/88 Respiratory Rate: 16 Pulse Ox: 100 Oxygen Delivery Method: Nasal Cannula Oxygen Flow Rate (L/min): 4 Assessment Airway patent: Yes Spontaneous unlabored respirations: Yes Mental status: Awake and Calm nausea: No Vomiting: No Anesthesia Complication: No Fluid Hydration Crystalloid volume administer (ml): 100 Total IV fluid infused: 100 Progress Note Anesthesia document: Postop Eval 1 completed: Yes
--- NOTE | 2024-10-14 16:28 | POSTOPAN2_ITS ---
Anesthesia Postop Eval I Sum Postop Eval Completion status Anesthesia document: Postop Eval 1 completed: Yes Anesthesia Postop Eval I Summary Anesthesia Postop Eval I Summary: Anesthesia Postop Eval I: Assessment Summary Airway patent Yes 10/14/24 16:21 [email or web address] Spontaneous unlabored Yes 10/14/24 16:21 [email or web address] [email or web address] respirations Mental status Awake,Calm 10/14/24 16:21 [email or web address] nausea No 10/14/24 16:21 [email or web address] [email or web address] Vomiting No 10/14/24 16:21 [email or web address] Anesthesia Postop Eval I: Fluid Summary Crystalloid volume administer 100 10/14/24 16:21 [email or web address] (ml) Colloids volume administered ( ml) Blood Product volume administered (ml) Total IV fluid infused 100 10/14/24 16:21 [email or web address] Anesthesia Postop Eval I: Summary Notes Anesthesia Complication No 10/14/24 16:21 [email or web address] Anesthesia Complication Comment: Post-operative progress note Anesthesia: Postop Eval II Evaluation Mental status: Awake and Calm Pain Level: 0 nausea: No Vomiting: No Complications Anesthesia Complication: No
--- NOTE | 2024-10-14 16:28 | PCM.POSTANE2 ---
Anesthesia Postop Eval I Sum Postop Eval Completion status Anesthesia document: Postop Eval 1 completed: Yes Anesthesia Postop Eval I Summary Anesthesia Postop Eval I Summary: Anesthesia Postop Eval I: Assessment Summary Airway patent Yes 10/14/24 16:21 [email or web address] Spontaneous unlabored Yes 10/14/24 16:21 [email or web address] respirations Mental status Awake,Calm 10/14/24 16:21 [email or web address] nausea No 10/14/24 16:21 [email or web address] Vomiting No 10/14/24 16:21 [email or web address] Anesthesia Postop Eval I: Fluid Summary Crystalloid volume administer 100 10/14/24 16:21 [email or web address] (ml) Colloids volume administered ( ml) Blood Product volume administered (ml) Total IV fluid infused 100 10/14/24 16:21 [email or web address] Anesthesia Postop Eval I: Summary Notes Anesthesia Complication No 10/14/24 16:21 [email or web address] Anesthesia Complication Comment: Post-operative progress note Anesthesia: Postop Eval II Evaluation Mental status: Awake and Calm Pain Level: 0 nausea: No Vomiting: No Complications Anesthesia Complication: No
--- NOTE | 2024-10-14 16:58 | OP.CCLET_ITS ---
10/14/2024 Kelly Aguillon Re : Upper GI endoscopy procedure for [place] This procedure was performed on Monday, October 14, 2024. My impressions and recommendations are as follows: Impressions : - Normal esophagus. - Non-bleeding gastric ulcers with no stigmata of bleeding. 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 Treated with a heater probe. - No specimens collected. Recommendations : - Return patient to referring hospital for ongoing care. - Resume previous diet. - Continue present medications. My findings are described in the full procedure note, which is enclosed. If I can be of further assistance, please feel free to contact me at . Sincerely, William Cruz, 10/14/2024 4:57:47 PM This report has been signed electronically.
--- NOTE | 2024-10-14 16:58 | OP.EGD_ITS ---
Patient Name: Ting Vega Procedure Date: 10/14/2024 3:53 PM Date of : 1940 Age: 84 Procedure: Upper GI endoscopy Indications: Iron deficiency anemia Providers: William Cruz DO Medicines: Monitored Anesthesia Care Patient Profile: This is an 84 year old female. Refer to note in patient chart for documentation of history and physical. Patient has symptoms. Complications: No immediate complications. Procedure: Pre-Anesthesia Assessment: - Prior to the procedure, a History and Physical was performed, and patient medications and allergies were reviewed. The patient is competent. The risks and benefits of the procedure and the sedation options and risks were discussed with the patient. All questions were answered and informed consent was obtained. Patient identification and proposed procedure were verified by the physician in the pre-procedure area. Mental Status Examination: alert and oriented. Airway Examination: normal oropharyngeal airway and neck mobility. Respiratory Examination: clear to auscultation. CV Examination: normal. Prophylactic Antibiotics: The patient does not require prophylactic antibiotics. Prior Anticoagulants: The patient has taken no anticoagulant or antiplatelet agents except for NSAID medication. ASA Grade Assessment: II - A patient with mild systemic disease. After reviewing the risks and benefits, the patient was deemed in satisfactory condition to undergo the procedure. The anesthesia plan was to use monitored anesthesia care (MAC). Immediately prior to administration of medications, the patient was re-assessed for adequacy to receive sedatives. The heart rate, respiratory rate, oxygen saturations, blood pressure, adequacy of pulmonary ventilation, and response to care were monitored throughout the procedure. The physical status of the patient was re-assessed after the procedure. After obtaining informed consent, the endoscope was passed under direct vision. Throughout the procedure, the patient's blood pressure, pulse, and oxygen saturations were monitored continuously. The Endoscope was introduced through the mouth, and advanced to the jejunum. Small bowel enteroscopy was deemed necessary. The upper GI endoscopy was accomplished without difficulty. The patient tolerated the procedure well. Scope In: 4:12:29 PM Scope Out: 4:17:59 PM Total Procedure Duration Time 0 hours 5 minutes 30 seconds Findings: The examined esophagus was normal. Six non-bleeding cratered gastric ulcers with no stigmata of bleeding were found in the gastric body. The largest lesion was 5 mm in largest dimension. Two 5 mm angiodysplastic lesions without bleeding were found in the jejunum. Coagulation for destruction of remaining portion of lesion using heater probe was successful. Estimated blood loss was minimal. Impression: - Normal esophagus. - Non-bleeding gastric ulcers with no stigmata of bleeding. 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 Treated with a heater probe. - No specimens collected. Recommendation: - Return patient to referring hospital for ongoing care. - Resume previous diet. - Continue present medications. Procedure Code(s): --- Professional --- 94242, Small intestinal endoscopy, enteroscopy beyond second portion of duodenum, not including ileum; with ablation of tumor(s), polyp(s), or other lesion(s) not amenable to removal by hot biopsy forceps, bipolar cautery or snare technique CPT copyright 2021 [employer]. All rights reserved. The codes documented in this report are preliminary and upon insight director review may be revised to meet current compliance requirements. William Cruz DO 10/14/2024 4:57:47 PM This report has been signed electronically. Number of Addenda: 0 Note Initiated On: 10/14/2024 3:53 PM
== END 2024-10-14 16:58 | disposition home or self-care (01) ==
LOC: EN 13:47 → AC 13:50
PROVIDERS: PCP Nurse Practitioner Family; Referring Provider Nurse Practitioner Family; Visit Provider Internal Medicine Gastroenterology
PROC: 0DJ08ZZ Inspection of Upper Intestinal Tract, Via Natural or Artificial Opening Endoscopic (ICD-10-PCS; CPT 43235; principal; 2024-10-14 14:55)
DX: D64.9 Anemia, unspecified (principal); I11.0 Hypertensive heart disease with heart failure; I50.32 Chronic diastolic (congestive) heart failure; I48.0 Paroxysmal atrial fibrillation; E78.00 Pure hypercholesterolemia, unspecified; Z86.718 Personal history of other venous thrombosis and embolism; K25.9 Gastric ulcer, unspecified as acute or chronic, without hemorrhage or perforation; Z79.01 Long term (current) use of anticoagulants; Z86.711 Personal history of pulmonary embolism; G47.33 Obstructive sleep apnea (adult) (pediatric); Z99.89 Dependence on other enabling machines and devices; Z79.899 Other long term (current) drug therapy; Z98.42 Cataract extraction status, left eye; Z90.49 Acquired absence of other specified parts of digestive tract; Z96.619 Presence of unspecified artificial shoulder joint; Z96.653 Presence of artificial knee joint, bilateral; K63.9 Disease of intestine, unspecified
CPT/HCPCS: 44369; C1889

== ENCOUNTER 2024-10-24 09:15 | Outpatient (RCR) | payer MEDICARE, OTHER, SELFPAY ==
[2024-10-10 14:26] VITALS: BP 111/67; PULSE 89; RESP 14; TEMP 36.1
--- NOTE | 2024-10-10 15:00 | PN.SURG_ITS ---
Subjective Subjective Operative Information Date of Procedure: 09/06/24 Pre-Operative Diagnosis: Right lower extremity wound Post-Operative Diagnosis: Same Surgery/Procedure Performed: 1) excision of right lower extremity wound for surgical preparation of skin graft , 5x 6 centimeters (CPT 34668) 2) split-thickness skin graft from right thigh to right leg, 5 x 6 cm (CPT 54159) Current encounter, 10 October 2024: The patient is an 84-year-old female s/p above noted procedure who is presenting with skin excoriations and swelling in the lower extremities. The excoriations on the right thigh were noted to be small and were observed during a recent hospital visit. The patient reported significant swelling in the lower e xtremities, leading to a hospital admission where she was started on Lasix. The patient also experienced dehydration, which contributed to her hospital admission as well. She is currently in the hospital at the transitional care unit for rehab. Attestation: Documentation on this patient encounter was supported using ambient scribe technology/ voice AI technology. The patient consented to recording for the purpose of documenting the encounter. Provider reviewed content of the generated note prior to signature. Objective Data Objective Data Vital Signs: Vital Signs Temp Pulse Resp BP 97.0 F L 89 14 111/67 10/10/24 14:26 10/10/24 14:26 10/10/24 14:26 10/10/24 14:26 Physical Exam Narrative ROS - Integumentary: Reports skin excoriations on the right thigh - Cardiovascular: Reports significant swelling in the lower extremities - General: Reports dehydration - Lower extremities: Significant swelling noted (symmetric and bilateral) - Right foot: Warm to touch, diminished pulse palpation - Right thigh: Small excoriations observed Assessment & Plan Assessment/Plan (1) Wound of right lower extremity: PLAN: Assessment and Plan The 84-year-old female with a history of dehydration presents with skin excoriations and swelling in the lower extremities. The excoriations on the right thigh are small and require minimal intervention, such as hydrogel application and bandaging. The swelling in the lower extremities is significant and was initially suspected to be cellulitis, but further evaluation is needed to confirm this diagnosis. The patient was recently hospitalized due to dehydration, which exacerbated her symptoms, and she was started on Lasix to manage the swelling. Ankle Brachial Indices ABIs) are recommended to assess blood flow and determine the suitability for compression therapy. 1. Skin Excoriations On The Right Thigh The excoriations on the right thigh are to be managed with daily application of hydrogel and bandaging to prevent infection and promote healing. 2. Swelling In The Lower Extremities The swelling in the lower extremities is to be managed with Lasix and elevation of the legs. Ankle Brachial Indices (ABIs) are recommended to assess blood flow and determine the suitability for compression therapy. 3. Dehydration The patient was hospitalized for dehydration and should maintain adequate hydration to prevent recurrence. Monitoring of fluid intake and output is advised. (2) S/P flap graft: PLAN: Plan - Tests: Ankle Brachial Indices (ABIs) recommended to assess blood flow and determine suitability for compression therapy - Apply hydrogel and bandage to the right thigh daily. - Elevate legs to reduce swelling. - Continue taking Lasix as prescribed. - Maintain adequate hydration to prevent dehydration. Charges/Coding Procedures Integumentary [id number]: [id number] Global Visit
--- NOTE | 2024-10-11 08:53 | WC ---
PHOTO 10/10/24 RIGHT THIGH
[2024-10-24 10:01] VITALS: BP 123/74; PULSE 104; RESP 18; TEMP 36.9
--- NOTE | 2024-10-25 09:34 | WC ---
PHOTO 10/24/24 RIGHT THIGH
--- NOTE | 2024-10-25 09:35 | PN_ITS ---
Subjective Subjective No fevers chills or drainage. Discussed her pump for lower extremities and okay to use for her lymphedema Objective Data Objective Data Vital Signs: Vital Signs Temp Pulse Resp BP O2 Del Method 98.5 F 104 H 18 123/74 H Room Air 10/24/24 10:01 10/24/24 10:10/24/24 10:10/24/24 10:10/24/24 10:01 Oxygen Delivery Method Room Air Physical Exam Narrative Skin graft donor site with small excoriation. Recommended Neosporin and a Band- Aid (excoriation is secondary to the episodic swelling in the lower extremity and should improve with the edema pump). Right leg skin graft completely healed. Assessment & Plan Assessment/Plan (1) S/P flap graft: PLAN: Right leg healed Right thigh with small excoriation on the skin graft donor site secondary to the new skin that formed and the pressure from the episodic swelling. I think this will get better with Neosporin and a Band-Aid daily and better improvement of lower extremity edema. She will return to clinic as needed if this does not heal quickly. Plan to follow-up as needed Charges/Coding Procedures Integumentary [id number]: [id number] Global Visit
== END 2024-11-03 14:39 | disposition home or self-care (01) ==
LOC: WC 09:15
PROVIDERS: PCP Nurse Practitioner Family; Referring Provider Surgery Plastic and Reconstructive Surgery; Visit Provider Surgery Plastic and Reconstructive Surgery
DX: L76.82 Other postprocedural complications of skin and subcutaneous tissue (principal); S70.311A Abrasion, right thigh, initial encounter; Y83.8 Other surgical procedures as the cause of abnormal reaction of the patient, or of later complication, without mention of misadventure at the time of the procedure; E86.0 Dehydration; I89.0 Lymphedema, not elsewhere classified; M79.89 Other specified soft tissue disorders; Z79.899 Other long term (current) drug therapy
CPT/HCPCS: 99213; G0463

== ENCOUNTER 2024-10-26 10:00 | Emergency (ER) | payer MEDICARE, OTHER, SELFPAY ==
[2024-10-26 10:01] VITALS: BP 106/74; PULSE 132; RESP 18; TEMP 37; O2SAT 97
[2024-10-26 10:03] VITALS: BMI 49.6
--- NOTE | 2024-10-26 10:12 | ED.RN ---
PT WAS ON HER WAY TO COME HERE TO [facility] FOR A VASCULAR APPT, SHE HIT THE CORNER OF HER CEMENT STAIRS AND HAS A LAC TO THE RIGHT LOWER LEG. CYN BUENROSTRO
--- NOTE | 2024-10-26 10:21 | EX.ED.DYSGE1 ---
HPI History of Present Illness Chief Complaint: Lower Extremity Injury Narrative Narrative: Chief complaint and HPI: Right lower extremity laceration. 84-year-old female with past medical history of atrial fibrillation, DVT, lymphedema on Eliquis presents for evaluation of right lower extremity laceration. Patient states she was walking up her concrete steps into her house when she accidentally cut the medial portion of her right calf on the step. Laceration is bleeding. Not up-to-date on tetanus. Denies any fall. Denies numbness or tingling. Review of systems: See HPI Medications: As listed on the chart Allergies: As listed on the chart PFSH: Per chart Vital signs: As listed on the chart. Reviewed. Physical exam: Gen: A&O x3, NAD Head: Normocephalic, atraumatic Eyes: No sclera icterus, conjunctiva clear ENT: Moist mucous membranes CV: Regular rate Resp: Nonlabored respirations Musc: Full ROM, no deformity, gaping laceration to the medial aspect of the right cath with mild active bleeding and subcutaneous fat visualized, neurovascularly intact Neuro: Alert, oriented, grossly intact, sensation intact Psych: Cooperative, appropriate mood and affect PFSH PFSH Medical History VRE (vancomycin resistant enterococcus) culture positive Hypothyroidism Lymphedema Insomnia Obstructive sleep apnea Macrocytic anemia PAF (paroxysmal atrial fibrillation) Wears glasses Post-menopausal Open wound Arthritis Walker as ambulation aid Bladder disease History of renal disease Anemia DVT (deep venous thrombosis) Low iron High cholesterol Back pain Seizures Hoarseness Non-smoker CPAP (continuous positive airway pressure) dependence Leg cramps History of edema History of echocardiogram History of stress test Cardiology follow-up encounter Urinary incontinence Osteopenia Spinal osteophytosis Status epilepticus Complicated urinary tract infection Osteoporosis Osteoarthritis Venous insufficiency of both lower extremities Pulmonary hypertension Diastolic dysfunction Elevated parathyroid hormone Metabolic acidosis Preop cardiovascular exam H/O hemorrhoids (HFpEF) heart failure with preserved ejection fraction History of pulmonary embolus (PE) COVID-19 (01/19/21) MRSA (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 Abdominal pain DVT (deep venous thrombosis) GERD (gastroesophageal reflux disease) Essential (primary) hypertension Incomplete left bundle branch block Morbid obesity with BMI of 45.0-49.9, adult Home Medications Medication Instructions Recorded Last Taken Type levonorgestrel (Mirena) 1 mcg intrauterine ONCE . 07/25/21 Unknown History nitroglycerin 0.4 mg sublingual 0.4 mg sublingual Q5M PRN chest 06/27/22 Unknown Rx tablet pain #30 tabs polyethylene glycol 3350 17 gram 17 g PO DAILY bowel mobility #30 ea 06/09/23 09/28/24 Rx oral powder packet atorvastatin 40 mg tablet 40 mg PO QHS cholesterol 05/18/24 10/03/24 History levothyroxine 125 mcg tablet 125 mcg PO DAILY thyroid 05/18/24 10/04/24 History calcium acetate(phosphat bind) 667 667 mg PO TIDCM supplement #1 cap 06/09/24 10/04/24 Rx mg capsule sennosides 8.6 mg-docusate sodium 2 tab PO BID constipation #1 TAB 06/09/24 Unknown Rx 50 mg tablet (Stimulant Laxative Plus) carvedilol 6.25 mg tablet 6.25 mg PO BID Blood pressure 09/28/24 10/14/24 07:45 History multivitamin 1 tab PO DAILY Supplement 09/28/24 09/28/24 History zinc gluconate 50 mg tablet 50 mg PO DAILY supplement 09/28/24 09/28/24 History Arthritis Pain Compound 3 click topical BID 30 days #60 GMS 10/17/24 Unknown Rx acetaminophen 500 mg tablet 1,000 mg (2 x 500 mg) PO TID #0 10/17/24 Unknown Rx tabs ferrous sulfate 325 mg (65 mg 325 mg PO DAILY@1200 30 days #30 10/17/24 Unknown Rx iron) tablet (FeroSul) tabs furosemide 40 mg tablet 40 mg PO DAILY #0 tabs 10/17/24 Unknown Rx lidocaine 5 % topical patch 1 patch topical DAILY 30 days #30 10/17/24 Unknown Rx ea melatonin 3 mg tablet 3 mg PO QHS #0 tabs 10/17/24 Unknown Rx mirtazapine 15 mg tablet 7.5 mg (1/2 x 15 mg) PO 2200 30 10/17/24 Unknown Rx days #15 tabs oxycodone 5 mg tablet 5 mg PO Q4H PRN PRN Pain Score 10/17/24 Unknown Rx 1-10 Or Pre Pt/Ot 7 days #42 tabs sodium bicarbonate 650 mg tablet 650 mg PO 4X/DAY 30 days #120 tabs 10/17/24 Unknown Rx apixaban 2.5 mg tablet (Eliquis) 2.5 mg PO BID 30 days #60 tabs 10/18/24 Unknown Rx cholecalciferol (vitamin D3) 25 50 mcg PO 10/26/24 Unknown History mcg (1,000 unit) tablet doxycycline hyclate 100 mg capsule 100 mg PO BID 5 days #10 caps 10/26/24 Unknown Rx fluoride (sodium) 1.1 % dental applic PO 10/26/24 Unknown History cream (Denta 5000 Plus) gabapentin 300 mg capsule 300 mg PO TID 10/26/24 Unknown History lacosamide 100 mg tablet 100 mg PO Q12H 10/26/24 Unknown History nystatin 100,000 unit/gram topical topical 10/26/24 Unknown History powder (Klayesta) vibegron 75 mg tablet (Gemtesa) 75 mg PO DAILY 10/26/24 Unknown History Allergy/AdvReac Type Severity Reaction Status Date / Time cefazolin (From Kefzol) Allergy Severe hives/difficulty Verified 10/26/24 10:14 swallowing ibuprofen Allergy Unknown Rash Verified 10/26/24 10:14 peanut Allergy Anaphylaxis Verified 10/26/24 10:14 Sulfa (Sulfonamide Allergy Unknown Verified 10/26/24 10:14 Antibiotics) sulfamethoxazole (From Allergy Other Verified 10/26/24 10:14 Bactrim) trimethoprim (From Bactrim) Allergy Other Verified 10/26/24 10:14 Family History Mother Cancer uterine Father No problems noted. Surgical History History of esophagogastroduodenoscopy (EGD) Hx of colonoscopy Hx of left cataract extraction History of dental surgery History of open reduction and internal fixation (ORIF) procedure History of cardiac catheterization Hx laparoscopic cholecystectomy H/O shoulder replacement History of left heart catheterization (08/01/22) History of dilatation and curettage History of hysteroscopy History of bilateral knee replacement History of herniorrhaphy Status post debridement History of open reduction and internal fixation (ORIF) procedure H/O hemorrhoidectomy History of gastric bypass Social History household members: other details: She has a roomate housing: house number of children: 1 current occupational status: retired pets and animals: Yes pets and animals: dog(s) Smoking Status: Never smoker alcohol intake: never substance use type: does not use caffeine: Yes Type: coffee Number of servings: 3 EXAM Physical Exam Const Vital Signs: 10/26/24 10:01 10/26/24 10:26 Temperature 98.6 F Temperature Source Oral Pulse Rate 132 H 98 Respiratory Rate 18 18 Blood Pressure 106/74 125/92 H Blood Pressure Mean 84 103 Pulse Ox 97 96 Oxygen Delivery Method Room Air Room Air MDM MDM MDM Narrative Medical decision making narrative: 84-year-old female with past medical history of atrial fibrillation, DVT, lymphedema on Eliquis presents for evaluation of right lower extremity laceration. Patient states she was walking up her concrete steps into her house when she accidentally cut the medial portion of her right calf on the step. Laceration is bleeding. Not up-to-date on tetanus. Denies any fall. See physical exam findings. Patient has a right medial calf laceration that will require repair. Tetanus updated. I was unable to fully close the patient's wound given the integrity of her skin. I tried multiple suture sizes as well as vertical and horizontal mattresses, all sutures tore through the skin. Given that patient follows with Dr. Lomax in the wound clinic for previous wound graft, he was consulted and patient was discussed. Plan is for wet-to-dry dressings. He will see her in the wound clinic Thursday. she was updated of all results and the plan. She confirmed understanding. I was able to place 4 sutures that will need to be removed in 10 to 14 days. She confirmed understanding of the plan. Given the size of the laceration will place on doxycycline x 10 days for antibiotic prophylaxis. Patient stable to discharge home. Laceration Repair Indication: Laceration Location: 5 cm right medial calf laceration Consent: Risks, benefits, and alternatives discussed with patient and consent obtained Procedure: The area was prepped and draped in the usual sterile fashion. Local anesthesia was achieved using 1% Lidocaine without epinephrine. The bleeding stopped. The wound was copiously irrigated and cleaned. 4 sutures sutures were placed using 3-0 Ethilon in an interrupted fashion. I attempted to use 4-0 Ethilon but these tore through the skin. I tried to suture the remaining wound however was unable, the 3-0 Ethilon and 4-0 Ethilon was tearing through the skin despite vertical and horizontal mattresses. The estimated blood loss was minimal. A wet-to-dry dressing was applied. The patient tolerated the procedure well. Foreign Material: None Debridement: None Follow-up: Anticipatory guidance, as well as standard post-procedure care, was explained. Return precautions are given. Follow-up visit set for suture removal and evaluation of the laceration. Impression: 1. 5 cm right medial calf laceration, partially sutured repaired 2. History of poor wound healing Discharge Plan Triage Chief Complaint: Lower Extremity Injury ED Provider: Jc Mireles Dx/Rx/DC Orders Clinical Impression: Laceration of leg, right Instructions: ED Laceration, All Closures, ED Laceration Extremity Prescriptions: New doxycycline hyclate 100 mg capsule 100 mg PO BID 5 Days Qty: 10 0RF No Action Mirena 20 mcg/24 hours (7 yrs) 52 mg intrauterine device 1 mcg intrauterine ONCE nitroglycerin 0.4 mg tablet, sublingual 0.4 mg sublingual Q5M PRN (Reason: chest pain) Qty: 30 1RF Rx Instructions: do not exceed 3 doses per episode carvedilol 6.25 mg tablet 6.25 mg PO BID multivitamin Tablet 1 tab PO DAILY zinc gluconate 50 mg tablet 50 mg PO DAILY Arthritis Pain Compound 3 click topical BID 30 Days Qty: 60 0RF furosemide 40 mg Tablet 40 mg PO DAILY Qty: 0 0RF melatonin 3 mg Tablet 3 mg PO QHS Qty: 0 0RF acetaminophen 500 mg Tablet 1,000 mg PO TID Qty: 0 0RF sodium bicarbonate 650 mg Tablet 650 mg PO 4X/DAY 30 Days Qty: 120 0RF ferrous sulfate [FeroSul] 325 mg (65 mg iron) Tablet 325 mg PO DAILY@1200 30 Days Qty: 30 0RF lidocaine 5 % Adhesive Patch,Medicated 1 patch topical DAILY 30 Days Qty: 30 0RF Protocol: *Topical Application Instructions APPLICATION INSTRUCTIONS: affected area mirtazapine 15 mg Tablet 7.5 mg PO 2200 30 Days Qty: 15 0RF oxycodone 5 mg Tablet 5 mg PO Q4H PRN PRN (Reason: Pain Score 1-10 Or Pre Pt/Ot) 7 Days Qty: 42 0RF Eliquis 2.5 mg tablet 2.5 mg PO BID 30 Days Qty: 60 0RF gabapentin 300 mg capsule 300 mg PO TID nystatin [Klayesta] 100,000 unit/gram powder topical fluoride (sodium) [Denta 5000 Plus] 1.1 % cream PO cholecalciferol (vitamin D3) 25 mcg (1,000 unit) tablet 50 mcg PO lacosamide 100 mg tablet 100 mg PO Q12H Gemtesa 75 mg tablet 75 mg PO DAILY polyethylene glycol 3350 17 gram Powder In Packet 17 g PO DAILY Qty: 30 0RF atorvastatin 40 mg tablet 40 mg PO QHS levothyroxine 125 mcg tablet 125 mcg PO DAILY Patient Comments: TAKE 1 TABLET BY MOUTH ONCE DAILY. TAKE ON EMPTY STOMACH. FOR THYROID. calcium acetate(phosphat bind) 667 mg Capsule 667 mg PO TIDCM Qty: 1 0RF sennosides-docusate sodium [Stimulant Laxative Plus] 8.6-50 mg Tablet 2 tab PO BID Qty: 1 0RF Primary Care Provider: Marko Capone Referrals: Miryam Wells NP-C [Non-Staff] - 3-5 Days Aime Lomax MD [Med Staff - Active Staff] - 3-5 Days Activity Restrictions/Additional Instructions: Monitor for signs of infection. Take all of your antibiotics. Keep your appointment with the wound clinic on Thursday with Dr. Lomax. Sutures need to be removed in 10 to 14 days. Continue the wet-to-dry dressings twice a day. Return back to the ED if symptoms change or worsen. No soaking in the bathtub, hot tubs, lakes, [place]nandez, oceans until fully. Print Language: Czech Disposition Disposition: Home, Self Care
[2024-10-26] MEDS: Lidocaine 1% /Epi 1:100 (20ml) 20 ML Vial INFILT (10:23)
[2024-10-26 10:26] VITALS: BP 125/92; PULSE 98; RESP 18; O2SAT 96
[2024-10-26 11:34] VITALS: BP 110/61; PULSE 87; RESP 16; TEMP 36.6; O2SAT 98
== END 2024-10-26 11:35 | disposition home or self-care (01) ==
PROVIDERS: Emergency Provider Surgery; PCP Family Medicine; Visit Provider Surgery
DX: S81.811A Laceration without foreign body, right lower leg, initial encounter (principal); I11.0 Hypertensive heart disease with heart failure; I50.32 Chronic diastolic (congestive) heart failure; I48.0 Paroxysmal atrial fibrillation; E78.00 Pure hypercholesterolemia, unspecified; W26.8XXA Contact with other sharp object(s), not elsewhere classified, initial encounter; Y93.01 Activity, walking, marching and hiking; Y92.019 Unspecified place in single-family (private) house as the place of occurrence of the external cause; G47.33 Obstructive sleep apnea (adult) (pediatric); Z99.89 Dependence on other enabling machines and devices; Z79.899 Other long term (current) drug therapy; E03.9 Hypothyroidism, unspecified; Z79.890 Hormone replacement therapy; Z79.01 Long term (current) use of anticoagulants; Z98.42 Cataract extraction status, left eye; Z90.49 Acquired absence of other specified parts of digestive tract; Z96.619 Presence of unspecified artificial shoulder joint; Z96.653 Presence of artificial knee joint, bilateral; Z23 Encounter for immunization
CPT/HCPCS: 12002; 99283; 90715

== ENCOUNTER 2024-10-29 03:36 | Inpatient (IN) | payer MEDICARE, OTHER, SELFPAY ==
[2024-10-29] VITALS (7 sets, daily range): BP systolic 98–121; BP diastolic 61–86; PULSE 81–124; RESP 17–20; TEMP 36.4–37.1; O2SAT 95–100; BMI 42.3; BMI 48.4
--- NOTE | 2024-10-29 04:03 | EX.ED.DYSGE1 ---
HPI History of Present Illness Chief Complaint: Weakness Informant: patient and friend Narrative Narrative: Patient is an 84-year-old female with past medical history of chronic anemia hypertension hypothyroidism hyperlipidemia and chronic atrial fibrillation currently on Eliquis. She states that she has had generalized weakness for the past 2 to 3 days. The patient has a home health aide and a friend to help take care of her and they confirmed that over the last 2 days she has not been able to get up and that she simply been laying in bed. The patient states she is unable to care for herself and is seeking treatment for potential placement in longterm. She states she still been taking her medications as directed but because of the generalized weakness keeping her from being able to ambulate and care for herself she was brought in for evaluation [facility] Medical History VRE (vancomycin resistant enterococcus) culture positive Hypothyroidism Lymphedema Insomnia Obstructive sleep apnea Macrocytic anemia PAF (paroxysmal atrial fibrillation) Wears glasses Post-menopausal Open wound Arthritis Walker as ambulation aid Bladder disease History of renal disease Anemia DVT (deep venous thrombosis) Low iron High cholesterol Back pain Seizures Hoarseness Non-smoker CPAP (continuous positive airway pressure) dependence Leg cramps History of edema History of echocardiogram History of stress test Cardiology follow-up encounter Urinary incontinence Osteopenia Spinal osteophytosis Status epilepticus Complicated urinary tract infection Osteoporosis Osteoarthritis Venous insufficiency of both lower extremities Pulmonary hypertension Diastolic dysfunction Elevated parathyroid hormone Metabolic acidosis Preop cardiovascular exam H/O hemorrhoids (HFpEF) heart failure with preserved ejection fraction History of pulmonary embolus (PE) COVID-19 (01/19/21) MRSA (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 07/25/21 Unknown History nitroglycerin 0.4 mg sublingual 0.4 mg sublingual Q5M PRN chest 06/27/22 Unknown Rx tablet pain #30 tabs atorvastatin 40 mg tablet 40 mg PO QHS cholesterol 05/18/24 10/03/24 History levothyroxine 125 mcg tablet 125 mcg PO DAILY thyroid 05/18/24 10/04/24 History calcium acetate(phosphat bind) 667 667 mg PO TIDCM supplement #1 cap 06/09/24 10/04/24 Rx mg capsule sennosides 8.6 mg-docusate sodium 2 tab PO BID constipation #1 TAB 06/09/24 Unknown Rx 50 mg tablet (Stimulant Laxative Plus) carvedilol 6.25 mg tablet 6.25 mg PO BID Blood pressure 09/28/24 10/14/24 07:45 History multivitamin 1 tab PO DAILY Supplement 09/28/24 09/28/24 History Arthritis Pain Compound 3 click topical BID 30 days #60 GMS 10/17/24 Unknown Rx acetaminophen 500 mg tablet 1,000 mg (2 x 500 mg) PO TID #0 10/17/24 Unknown Rx tabs ferrous sulfate 325 mg (65 mg 325 mg PO DAILY@1200 30 days #30 10/17/24 Unknown Rx iron) tablet (FeroSul) tabs furosemide 40 mg tablet 40 mg PO DAILY #0 tabs 10/17/24 Unknown Rx lidocaine 5 % topical patch 1 patch topical DAILY 30 days #30 10/17/24 Unknown Rx ea melatonin 3 mg tablet 3 mg PO QHS #0 tabs 10/17/24 Unknown Rx mirtazapine 15 mg tablet 7.5 mg (1/2 x 15 mg) PO 2200 30 10/17/24 Unknown Rx days #15 tabs oxycodone 5 mg tablet 5 mg PO Q4H PRN PRN Pain Score 10/17/24 Unknown Rx 1-10 Or Pre Pt/Ot 7 days #42 tabs sodium bicarbonate 650 mg tablet 650 mg PO 4X/DAY 30 days #120 tabs 10/17/24 Unknown Rx apixaban 2.5 mg tablet (Eliquis) 2.5 mg PO BID 30 days #60 tabs 10/18/24 Unknown Rx cholecalciferol (vitamin D3) 25 50 mcg PO DAILY 10/26/24 Unknown History mcg (1,000 unit) tablet doxycycline hyclate 100 mg capsule 100 mg PO BID 5 days #10 caps 10/26/24 Unknown Rx fluoride (sodium) 1.1 % dental 1 applic PO Q24H 10/26/24 Unknown History cream (Denta 5000 Plus) gabapentin 300 mg capsule 300 mg PO TID 10/26/24 Unknown History lacosamide 100 mg tablet 100 mg PO Q12H 10/26/24 Unknown History nystatin 100,000 unit/gram topical topical 10/26/24 Unknown History powder (Klayesta) vibegron 75 mg tablet (Gemtesa) 75 mg PO DAILY 10/26/24 Unknown History polyethylene glycol 3350 17 17 g PO DAILY 10/29/24 Unknown History gram/dose oral powder (Miralax) Allergy/AdvReac Type Severity Reaction Status Date / Time cefazolin (From Kefzol) Allergy Severe hives/difficulty Verified 10/29/24 03:39 swallowing ibuprofen Allergy Unknown Rash Verified 10/29/24 03:39 peanut Allergy Anaphylaxis Verified 10/29/24 03:39 Sulfa (Sulfonamide Allergy Unknown Verified 10/29/24 03:39 Antibiotics) sulfamethoxazole (From Allergy Other Verified 10/29/24 03:39 Bactrim) trimethoprim (From Bactrim) Allergy Other Verified 10/29/24 03:39 Family History Mother Cancer uterine Father No problems noted. Surgical History History of esophagogastroduodenoscopy (EGD) Hx of colonoscopy Hx of left cataract extraction History of dental surgery History of open reduction and internal fixation (ORIF) procedure History of cardiac catheterization Hx laparoscopic cholecystectomy H/O shoulder replacement History of left heart catheterization (08/01/22) History of dilatation and curettage History of hysteroscopy History of bilateral knee replacement History of herniorrhaphy Status post debridement History of open reduction and internal fixation (ORIF) procedure H/O hemorrhoidectomy History of gastric bypass Social History household members: other details: She has a roomate housing: house number of children: 1 current occupational status: retired pets and animals: Yes pets and animals: dog(s) Smoking Status: Never smoker alcohol intake: never substance use type: does not use caffeine: Yes Type: coffee Number of servings: 3 ROS ROS ED Constitutional Constitutional ED: Denies chills or fever(s) Eyes Eyes: Denies change in vision ENT ENT ED: Denies sore throat Cardiovascular Cardiovascular: Reports palpitations and racing heartbeat; Denies chest pain Respiratory/Chest Respiratory/Chest: Denies cough or dyspnea Gastrointestinal Gastrointestinal: Denies abdominal pain, diarrhea, nausea or vomiting Genitourinary Genitourinary ED: Reports dysuria Musculoskeletal Musculoskeletal: Denies myalgias Integumentary Reports other; Denies rash Neurologic Neurologic: Reports weakness; Denies headache(s) Hematologic/Lymphatic Hematologic/Lymphatic: Reports easy bleeding and easy bruising EXAM Physical Exam Const Vital Signs: 10/29/24 03:40 10/29/24 03:40 10/29/24 05:09 Temperature 97.5 F L 97.8 F Temperature Source Oral Pulse Rate 124 H 108 H Respiratory Rate 18 18 Respiratory Effort Normal Non-Labored Respiratory Pattern Normal Blood Pressure 102/86 H 98/82 H Blood Pressure Mean 91 87 Pulse Ox 100 96 Oxygen Delivery Method Room Air 10/29/24 05:11 Temperature Temperature Source Pulse Rate 108 H Respiratory Rate 18 Respiratory Effort Respiratory Pattern Blood Pressure 98/82 H Blood Pressure Mean 87 Pulse Ox 96 Oxygen Delivery Method Room Air Positive well nourished, well developed and obese General Appearance ED: well developed Nutritional Appearance: obese HEENT HEENT Narrative: Normocephalic atraumatic No tongue or lip swelling no oral lesions no airway edema or compromise Eyes PERRL and EOMs intact bilaterally General Eye ED: Negative for scleral icterus Neck supple Neck Narrative: No nuchal rigidity or meningeal signs Chest Wall palpation of chest normal Resp normal respiratory effort and clear to auscultation bilaterally Resp Narrative: Breath sounds are diminished throughout but overall clear to auscultation without nasal flaring retractions tachypnea or accessory muscle use Cardio Rate: other Other Details: Irregularly irregular rhythm with slightly tachycardic rate consistent with history of chronic atrial fibrillation GI normal to inspection, nondistended, normoactive bowel sounds, non-tender, non-distended and no masses GI Narrative: No voluntary guarding or rigidity or pulsatile mass Auscultation: normoactive bowel sounds Palpation: soft Extremity Extremity Narrative: Patient has diffuse swelling to the bilateral lower legs consistent with history of lymphedema No obvious bony deformity or joint effusion All compartments are soft and compressible going against compartment syndrome Neuro oriented x3, CN's II-XII intact bilaterally and no sensory deficits noted Sensorium / Orientation: alert Psych mental status grossly normal Skin Skin Narrative: Patient has a recent laceration to her right lower leg that is clean dry and intact without findings concerning for cellulitis. There is an abrasion to the lateral aspect of the left leg without findings of secondary infection Patient has changes to the right upper thigh consistent with recent skin graft also without findings of secondary infection MDM MDM MDM Narrative Medical decision making narrative: Patient arrived to the ER in atrial fibrillation but has a history of this and is on Eliquis. She reported generalized weakness over the last 2 days keeping her from ambulating and the inability perform her activities of daily living. The patient is requesting potential placement in a longterm as she is not able to care for herself at this time. Secondary to this basic blood work was obtained to check for worsening anemia kidney disease urinary tract infection or pneumonia. Blood work showed hemoglobin of 9.4 which is near baseline. Her creatinine is 3.16 which is slightly above her baseline. Urine sample showed no sign of acute infection and chest x-ray revealed no acute lung pathology such as pneumonia. Patient also has multiple wounds but they are not showing findings of systemic infection/cellulitis. Therefore at this time patient has chronic lab abnormalities but they are near her baseline without obvious secondary infection. However because of her generalized weakness and inability to ambulate I do not feel she is safe for home. I do feel she would benefit from PT OT evaluation and longterm placement. Secondary to this I discussed the case with the hospitalist. He evaluated the patient in the ER and does agree to accept the patient for further care. History & Record Review Discussion w/independent historian: Patient and Friend Lab Data Attestation: I reviewed the patient's lab results. Labs: Laboratory Results - last 24 hr 10/29/24 10/29/24 03:51 04:14 WBC 5.8 RBC 2.94 L Hgb 9.4 L Hct 31.4 L MCV 106.8 H MCH 32.0 MCHC 29.9 L RDW Std Deviation 57.2 H RDW Coeff of [place]ris 15.0 H Plt Count 212 MPV 13.6 H Immature Gran % (Auto) 0.200 Neut % (Auto) 53.2 Lymph % (Auto) 30.1 [place] % (Auto) 9.8 Eos % (Auto) 6.0 H Baso % (Auto) 0.7 Absolute Neuts (auto) 3.1 Absolute Lymphs (auto) 1.74 Nucleated RBC % 0 Sodium 142 Potassium 4.4 Chloride 106 Carbon Dioxide 23.5 Anion Gap 13 BUN 67 H Creatinine 3.16 H Estim Creat Clear Calc 15.60 L Est GFR (MDRD) Non-Af 14 L BUN/Creatinine Ratio 21.3 H Glucose 98 Calcium 8.3 Magnesium 2.3 H TSH 4.310 H Urine Color Straw Urine Clarity Clear Urine pH 6.0 Ur Specific [place] 1.010 Urine Protein 15 H Urine Glucose (UA) Normal Urine Ketones Negative Urine Occult Blood Negative Urine Nitrite Negative Urine Bilirubin Negative Urine Urobilinogen Normal Ur Leukocyte Esterase 25 H Urine RBC 0 SEEN Urine WBC 5-10 SEEN Ur Squamous Epith Cells 0-5 SEEN Urine Bacteria 0 SEEN Urine Mucus 0 SEEN Radiography Diagnostic Testing: Clinical Impression(s) from Imaging Studies Chest X-Ray 10/29/24 04:20 IMPRESSION: No definite acute chest findings. Possible very mild central interstitial edema. Advise correlation. Reading Location: [facility]- Chest x-ray as interpreted by the emergency medicine physician reveals findings consistent with mild vascular congestion but no acute infiltrate pleural effusion or pneumothorax Management Discussion w/another healthcare provider: Hospitalist Discharge Plan Triage Chief Complaint: Weakness ED Provider: Anthony Taylor Dx/Rx/DC Orders Clinical Impression: Generalized weakness, Chronic atrial fibrillation, Current use of alf anticoagulation, Lymphedema, Hypothyroidism, Inability to walk, Chronic kidney disease, Anemia Prescriptions: No Action Mirena 20 mcg/24 hours (7 yrs) 52 mg intrauterine device 1 mcg intrauterine ONCE nitroglycerin 0.4 mg tablet, sublingual 0.4 mg sublingual Q5M PRN (Reason: chest pain) Qty: 30 1RF Rx Instructions: do not exceed 3 doses per episode carvedilol 6.25 mg tablet 6.25 mg PO BID multivitamin Tablet 1 tab PO DAILY Arthritis Pain Compound 3 click topical BID 30 Days Qty: 60 0RF furosemide 40 mg Tablet 40 mg PO DAILY Qty: 0 0RF melatonin 3 mg Tablet 3 mg PO QHS Qty: 0 0RF acetaminophen 500 mg Tablet 1,000 mg PO TID Qty: 0 0RF sodium bicarbonate 650 mg Tablet 650 mg PO 4X/DAY 30 Days Qty: 120 0RF ferrous sulfate [FeroSul] 325 mg (65 mg iron) Tablet 325 mg PO DAILY@1200 30 Days Qty: 30 0RF lidocaine 5 % Adhesive Patch,Medicated 1 patch topical DAILY 30 Days Qty: 30 0RF Protocol: *Topical Application Instructions APPLICATION INSTRUCTIONS: affected area mirtazapine 15 mg Tablet 7.5 mg PO 2200 30 Days Qty: 15 0RF oxycodone 5 mg Tablet 5 mg PO Q4H PRN PRN (Reason: Pain Score 1-10 Or Pre Pt/Ot) 7 Days Qty: 42 0RF Eliquis 2.5 mg tablet 2.5 mg PO BID 30 Days Qty: 60 0RF gabapentin 300 mg capsule 300 mg PO TID nystatin [Klayesta] 100,000 unit/gram powder topical fluoride (sodium) [Denta 5000 Plus] 1.1 % cream 1 applic PO Q24H cholecalciferol (vitamin D3) 25 mcg (1,000 unit) tablet 50 mcg PO DAILY lacosamide 100 mg tablet 100 mg PO Q12H Gemtesa 75 mg tablet 75 mg PO DAILY doxycycline hyclate 100 mg capsule 100 mg PO BID 5 Days Qty: 10 0RF polyethylene glycol 3350 [Miralax] 17 gram/dose powder 17 g PO DAILY atorvastatin 40 mg tablet 40 mg PO QHS levothyroxine 125 mcg tablet 125 mcg PO DAILY Patient Comments: TAKE 1 TABLET BY MOUTH ONCE DAILY. TAKE ON EMPTY STOMACH. FOR THYROID. calcium acetate(phosphat bind) 667 mg Capsule 667 mg PO TIDCM Qty: 1 0RF sennosides-docusate sodium [Stimulant Laxative Plus] 8.6-50 mg Tablet 2 tab PO BID Qty: 1 0RF Primary Care Provider: Marko Capone Referrals: Marko Capone MD [Primary Care Provider] - Print Language: Azeri Disposition Disposition: Acute Care Hospital [facility]
--- OUTSIDE RECORDS SUMMARY | 2024-10-29 04:16 | XMS RPT_ITS | CCD ---
Author Organization [facility] CliniSynh Care Team Providers Care Computer Systems Design Analyst Name Role Phone Lizy Capone MD Primary Care Provider Dr. Lizy Capone Primary Care Provider Dr. Lizy Capone Referring Provider [phone] Dr. Norberto Jackson Attending Provider [phone] Lizy Capone MD Primary Care Provider Dr. Lizy Capone Primary Care Provider Dr. Norberto Jackson Attending Provider [phone] Dr. Lizy Capone Referring Provider [phone] Dr. Russell Gonzalez Attending Provider [phone] Lizy Capone MD Primary Care Provider Dr. Lizy Capone Primary Care Provider Dr. Russell Gonzalez Referring Provider [phone] RYAN Contreras Attending Provider Dr. Norberto Jackson Attending Provider [phone] Lizy Capone MD Primary Care Provider Dr. Lizy Capone Primary Care Provider [phone] Dr. Lizy Capone Referring Provider [phone] Dr. Russell Gonzalez Attending Provider [phone] Dr. Russell Gonzalez Referring Provider [phone] RYAN Contreras Attending Provider Dr. Norberto Jackson Attending Provider [phone] Tatiana Olson Attending Provider Unavailable Dr. Lizy Capone Primary Care Provider Dr. Lizy Capone Referring Provider [phone] Manuel, Dr. Thornton Attending Provider [phone] Lizy Capone Primary Care Provider Dr. Lizy Capone Referring Provider [phone] Manuel, Dr. Thornton Attending Provider [phone] Estelita, Dr. Zhu Primary Care Provider Estelita, Dr. Zhu Referring Provider [phone] Manuel, Dr. Thornton Attending Provider [phone], Dr. Thornton Other Provider [facility] COOKER MECHANIC, COOKER MECHANIC-C Jas Dickey Attending Provider Geovani COOKER MECHANIC, COOKER MECHANIC-C Maria Teresa Attending Provider Dr. Judson Toney Emergency Provider Ponce, COOKER MECHANIC-C Miryam Primary Care Provider Dr. Ralph Wheeler Admit Provider UnavailDr. Ralph Barksdale Other Provider UnavailDr. Ralph Felix Attending Provider Unavailable Dr. Ralph Haynes Other Provider Unavailable Lizy Capone MD Primary Care Provider DELGADO, ROQUE Attending Unavailable JUAN DANIEL, ROQUE Referring Unavailable LIZY CAPONE Primary Care Unavailable DELGADO, ROQUE Attending Unavailable LIZY CAPONE Primary Care Unavailable LIZY CAPONE Primary Care Unavailable REBEKAH BOBO Attending Unavailab le LIZY CAPONE Primary Care Unavailable DELGADO, ROQUE Referring Unavailable DELGADO, ROQUE Attending Unavailable LIZY CAPONE Primary Care Unavailable DELGADO, ROQUE Attending Unavailable DELGADO, ROQUE Attending Unavailable LIZY ACPONE Primary Care Unavailable DELGADO, ROQUE Attending Unavailable THBRAD, KEYANA Referring Unavailable LIZY CAPONE Primary Care Unavailable YARI, KEYANA Attending Unavailable LIZY CAPONE Primary Care Unavailable REBEKAH BOBO Referring Unavailab le DELGADO, ROQUE Attending Unavailable LIZY CAPONE Primary Care Unavailable REBEKAH BOBO Attending Unavailab LIZY Dia Primary Care Unavailable [place] EMPLOYMENT PROGRAM REPRESENTATIVE.Miryam CORONA Unavailable Yeison EMPLOYMENT PROGRAM REPRESENTATIVE.CJMulugeta Unavailable PROVIDER, UNKNOWN Attending Unavailable PROVIDER, UNKNOWN Admitting Unavailable [place] MEDICAL INVESTIGATOR, Miryam Primary Care Provider Norberto Jackson MD Unavailable NICOL JUDGE Attending Unavailable ADITHYA HARRELL Referring Unavailable MIRYAM OROZCO Primary Care Unavailable CONSULT, NEUROLOGY Consulting Unavailable KINDRA GANNON Admitting Unavailable [place] COOKER MECHANIC-C, Miryam Primary Care Provider Janine GUILLEN, Dr. Mari Cochran Attending Provide r Phuc JACK, Dr. Espinoza Emergency Provider Jone JACK, Dr. Menchaca Admit Provider Dr. Bernarda Becerril MD Referring Provider Jone JACK, Dr. Menchaca Other Provider Ambrocio JACK, Dr. Laughlin Other Provider Liberty JACK, Dr. Osorio Other Provider Breanna JACK, Dr. Brand Other Provider Dr. Dre White MD Other Provider Dr. Edgar Davies DO Other Provider Tobin JACK, Dr. Ralph Roy Other Provider Mony JACK, Dr. Summers Other Provider [phone] Jimena JACK, Dr. Mann Other Provider Joni JAKC, Dr. Langley Other Provider Damion JACK, Dr. Lion Other Provider Hector JACK, Dr. Sanderson Other Provider Dr. Anthony Anderson MD Other Provider Griselda JACK, Dr. Feng Other Provider Fabián JAKC, Dr. Peterson Other [facility] chela Salcedo MD, Dr. Mcgovern Other Provider Gagan JACK, Dr. Singleton Other Provider Esthela JACK, Dr. Leija Other Provider Neda GUILLEN, Dr. Gaming Other Provider Millie JACK, Dr. Miller Other Provider [phone] Dez JACK, Dr. Contreras Other Provider Dr. Bandar Hernandez DO Other Provider Robinson JACK, Dr. Mcpherson Other Provider Alvaro JACK, Dr. Nixon Other Provider [phone] Julio Cesar JACK, Dr. Haji Attending Provider Ivy JACK, Dr. Rosas Other Provider Unavailable Ken JACK, Dr. Carrillo Other Provider [phone] Dr. Naina Bello MD Other Provider Michael Johnston MD Other Provider Lucero YATES, Mulugeta Other Provider Stepan JACK, Dr. Rolon Other Provider Noel JACK, Jae Other Provider [phone] TAYA MENCHACA MD Other Provider Adriana Germain MD Other Provider [phone] Dr. Abi Yates MD Other Provider Nicho Mcmillan MD Other Provider Radha JACK, Minal Other Provider Adan JACK, Dr. Sequeira Attending Provider Adan JACK, Dr. Sequeira Referring Provider Dr. Ralph Haynes MD Attending Provider Unavaila ble Samson DO, Dr. Hernández Attending Provider Julio Cesar JACK, Dr. Haji Other Provider Semenkunal DO, Dr. Mari Cochran Admit Provider Semenkunal DO, Dr. Mari Cochran Other Provider Anand RN, Christa Attending Provider Unavail able Gustavo Castorena MD Attending Provider Unavaila ble Cherelle COOKER MECHANIC-C, Minna Attending Provider Kell JACK, Dr. Chen Attending Provider Gustavo Castorena MD Referring Provider Unavaila briseida Vieyra, Dr. Reaves Emergency Provider [facility] COOKER MECHANIC-C, Miryam Primary Care Provider Janine GUILLEN, Dr. Mari Cochran Attending Provide r Ken JACK, Dr. Carrillo Other Provider [phone] Valentin GUILLEN, Dr. Reaves Attending Provider [facility] COOKER MECHANIC-C, [place] Referring Provider Dr. Gonzalo Lomax MD Attending Provider Dr. Gonzalo Lomax MD Referring Provider Dr. Gonzalo Lomax MD Other Provider Dr. Mehdi Womack MD Attending Provider [phone] Semenkunal DO, Dr. Mari Cochran Other Provider Maxwell DO, Dr. Israel Emergency Provider Sami JACK, Dr. Michelle Garrett Admit Provider Sami JACK, Dr. Michelle Garrett Attending Provider Semenkunal GUILLEN, Dr. Mari Cochran Other Provider Dr. Michelle Gallardo MD Other Provider Ambrocio JACK, Dr. Laughiln Other Provider Dave GUILLEN, Dr. Pak Attending Provider Perez GUILLEN, Dr. Wells Other Provider Perez GUILLEN, Dr. Wells Attending Provider Dave GUILLEN, Dr. Pak Other Provider [place] COOKER MECHANIC-C, [facility] Care Provider Kell JACK, Gustavo Attending Provider Unavailraiza Villarreal COOKER MECHANIC-C, Minna Attending Provider Antony JACK, Dr. Gautam Escalona Admit Provider Antony JACK, Dr. Gautam Escalona Attending Provider Antony JACK, Dr. Gautam Escalona Referring Provider Lisa JACK, Dr. Wells Attending Provider Phuc JACK, Dr. Espinoza Emergency Provider [place] COOKER MECHANIC-C, [facility] Care Provider Vishal GUILLEN, Dr. Thomas Attending Provider Vishal GUILLEN, Dr. Thomas Other Provider [place] COOKER MECHANIC-C, [place] Primary Care Provider Kell JACK, Gustavo Attending Provider Kailee Friend MD, Dr. Espinoza Attending Provider [place] COOKER MECHANIC-C, [facility] Care Provider Cherelle COOKER MECHANIC-C, Minna Attending Provider Mary JACK, Dr. Domingo Attending Provider Manuel JACK, Dr. Thornton Attending Provider [place] COOKER MECHANIC-C, [place] Primary Care Provider Kell JACK, Gustavo Attending Provider Kailee Hernandez MD, Dr. Domingo Attending Provider Aline GUILLEN, Dr. Greene Emergency Provider Estelita JACK, Dr. Zhu Primary Care Provider [facility], [place] Primary Care Unavailable Gautam Hardy Chi Attending Unavailable Gautam Hardy Chi Referring Unavailable [facility] Care Unavailable Jean Paul Ha Attending Unavailable Estelita, Lizy Primary Care Unavailable Jc Mireles Attending Unavailabl e SiskaGonzalo Attending Unavailable Monie Gonzalo Referring Unavailable [facility] Unavailable Sementi, Mari Cochran Admitting Unavaila ble Sementi, Mari Cochran Attending Unavaila ble [facility] Care Unavailable Sementi, Mari Cochran Consulting Unavaila ble Russell Gonzalez Attending Unavailable [facility] Care Unavailable Nagajothi, Nagapradee Referring Unavailabl e Nagajothi, Nagapradee Attending Unavailabl e [facility] Care Unavailable [facility] Care Unavailable Sementi, Mari Cochran Admitting Unavaila ble Sementi, Mari Cochran Attending Unavaila ble Sementi, Mari Cochran Referring Unavaila ble Sementi, Mari Cochran Consulting Unavaila ble [facility] Care Unavailable [facility] Referring Unavailable Ra Vishalhsaan Attending Unavailable [facility] Care Unavailable Adithya Harrell Attending Unavailable Qian Albrecht Consulting Unavailable Bernarda Becerril Admitting Unavailable Bernarda Becerril Referring Unavailable Devon Koenig Consulting Unavailable Sunday Carlos Consulting Unavailable Dre White Consulting Unavailable Edgar Davies Consulting Unavailable Ralph Rudd Consulting Unavailable Kristopher Sykes Consulting Unavailable Johnathan Hess Consulting Unavailable Korin Quinones Consulting Unavailab Ayad Traylor Consulting Unavailable Kin Young Consulting Unavailable Anthony Anderson Consulting Unavailable Ping Villalobos Consulting Unavailable AlKristen simon Consulting Unavailable Emanuel, Froilan Consulting Unavailable Mani Farah Consulting Unavailable Esthela, Heladio Consulting Unavailable Mekhi Red Consulting Unavailable Angela Pinto Consulting Unavailable Ben Graces Consulting Unavailable Bandar Hernandez Consulting Unavailable Ky Bowers Consulting Unavailable Hussain John Consulting Unavailable Bernarda Becerril Consulting Unavailable Ralph Haynes Consulting Unavailable Gerardo Rogers Consulting Unavailable Ace, Naina Consulting Unavailable Michael Johnston Consulting Unavailable Mulugeta Barker Consulting Unavailable Gonzales Ying Consulting Unavailable Jae Cohen Consulting Unavailable TAYA MENCHACA Consulting Unavailable Adriana Germain Consulting Unavailable Abi Yates Consulting Unavailable Nicho Mcmillan Consulting Unavailable Minal Garcia Consulting Unavailable White, Michelle L Admitting Unavailable Ambrocio, Jayaprakas Consulting Unavailable Alex Acosta Attending Unavailable [facility] Primary Care Unavailable White, Michelle L Consulting Unavailable Russell Todd Consulting Unavailable Gerardo Rogers Consulting Unavailable Mari Mehta Admitting Unavaila ble Sementi, aMri Cochran Attending Unavaila ble [facility], [place] Primary Care Unavailable Oleghe OLS, Efewongbe Referring Unavailabl e [facility], [place] Primary Care Unavailable Oleghe OLS, Efewongbe Attending Unavailabl e [facility], [place] Primary Care Unavailable Antony, Gautam Chi Admitting Unavailable Ambrocio, Jayaprakas Consulting Unavailable Antony, Gautam Chi Attending Unavailable Antony, Gautam Chi Referring Unavailable [facility] Primary Care Unavailable Mari Mehta Attending Unavaila ble Oleghe OLS, Efewongbe Referring Unavailabl e Oleghe OLS, Efewongbe Attending Unavailabl e [place], [place] Primary Care Unavailable Siska, Gonzalo Referring Unavailable Siska Gonzalo Attending Unavailable [facility], [place] Primary Care Unavailable Siska, Gonzalo Attending Unavailable Siska, Gonzalo Referring Unavailable [facility] Primary Care Unavailable Sisgumaro, Gonzalo Consulting Unavailable [facility], [place] Primary Care Unavailable [place]ann[place], Miryam Referring Unavailable Mehdi Womack Attending Unavailable Oleghe OLS, Efewongbe Attending Unavailabl e Oleghe OLS, Efewongbe Referring Unavailabl e [facility], [place] Primary Care Unavailable Alexis Friend Attending Unavailable [facility], [place] Primary Care Unavailable [facility], [place] Primary Care Unavailable [facility], M[place]am Attending Unavailable [place], Miryam Referring Unavailable Ambrocio, Jayaprakas Attending Unavailable Ambrocio, Jayaprakas Referring Unavailable [facility], [place] Primary Care Unavailable [facility], [place] Primary Care Unavailable Oleghe OLS, Efewongbe Attending Unavailabl e Oleghe OLS, Efewongbe Attending Unavailabl e [facility], [place] Primary Care Unavailable [facility], [place] Primary Care Unavailable SemenMari syed Admitting Unavaila ble Sementi, Mari Cochran Attending Unavaila ble Sementi, Mandy Ref[facility] Russell Gonzalez Attending Unavailable Sementi, Mandy Referring Unavaila ble ManuelNorberto hunt Attending Unavailable [facility] Primary Care Unavailable [facility], [place] Referring Unavailable [facility] Primary Care Unavailable Gonzalo Lomax Attending Unavailable [facility], [place] Referring Unavailable [place] COOKER MECHANIC, Minna Attending Unavailable [facility] Primary Care Unavailable [facility] Primary Care Unavailable ManuelNorberto hunt Attending Unavailable [facility] Referring Unavailable [facility] Primary Care Unavailable [place] COOKER MECHANIC, Minna Attending Unavailable [facility] Care Unavailable Gustavo Castorena Attending Unavailable [place] COOKER MECHANIC, Minna Attending Unavailable [facility] Care Unavailable Adestanford, Amir Consulting Unavailable Gonzalo Lomax Referring Unavailable Gonzalo Lomax Attending Unavailable [facility] Care Unavailable Qian Albrecht Consulting Unavailable Bernarda Becerril Admitting Unavailable Bernarda Becerril Referring Unavailable Edgar Davies Attending Unavailable [facility] Care Unavailable Devon Koenig Consulting Unavailable Sunday Carlos Consulting Unavailable Dre White Consulting Unavailable Edgar Davies Consulting Unavailable Ralph Rudd Consulting Unavailable Kristopher Sykes Consulting Unavailable Johnathan Hess Consulting Unavailable Korin Quinones Consulting UnavailAyad Neuamnn Consulting Unavailable Kin Young Consulting Unavailable Anthony Anderson Consulting Unavailable Ping Villalobos Consulting Unavailable Kristen Lockwood Consulting Unavailable EmanuelChristina pereztam Consulting Unavailable Mani Farah Consulting Unavailable Esthela, Heladio Consulting Unavailable Anastasiia Redkhdeep Consulting Unavailable Angela Pinto Consulting Unavailable Ben Garces Consulting Unavailable Bandar Hernandez Consulting Unavailable Ky Bowers Consulting Unavailable Hussain John Consulting Unavailable Bernarda Becerril Consulting Unavailable Ralph Haynes Consulting Unavailable Ken, Amijean pierre Consulting Unavailable Michael Johnston Consulting Unavailable Adriana Germain Consulting Unavailable Nicho Mcmillan Consulting Unavailable Minal Garcia Consulting Unavailable Abi Yates Consulting Unavailable Mulugeta Barker Consulting Unavailable Gonzales Ying Consulting Unavailable TAYA MENCHACA Consulting Unavailable Jae Cohen Consulting Unavailable Ace, Naina Consulting Unavailable Julio Cesar, Adithya Consulting Unavailable Oleghe OLS, Efewongbe Attending Unavailabl e [facility], [place] Primary Care Unavailable Oleghe OLS, Efewongbe Attending Unavailabl e [facility], [place] Primary Care Unavailable [facility], [place] Primary Care Unavailable Oleghe OLS, Efewongbe Attending Unavailabl e [place], [place] Primary Care Unavailable Oleghe OLS, Efewongbe Attending Unavailabl e [place], [place] Primary Care Unavailable Siska, Gonzalo Attending Unavailable Siska, Gonzalo Referring Unavailable Oleghe OLS, Efewongbe Attending Unavailabl e [facility], [place] Primary Care Unavailable Oleghe OLS, Efewongbe Attending Unavailabl e [facility], [place] Primary Care Unavailable Oleghe OLS, Efewongbe Attending Unavailabl e [facility], [place] Primary Care Unavailable Siska, Gonzalo Attending Unavailable Siska, Gonzalo Referring Unavailable Siska, Gonzalo Consulting [facility] [place] Primary [facility] Unavailable Siska, Gonzalo Attending Unavailable Siska, Gonzalo Referring Unavailable [facility], Miryam Primary Care Unavailable Siska, Gonzalo Attending Unavailable Siska, Gonzalo Referring Unavailable Siska, Gonzalo Consulting Unavailable [facility], [place] Primary Care Unavailable Siska, Gonzalo Attending Unavailable Siska, Gonzalo Referring Unavailable Siska, Gonzalo Consulting Unavailable [facility], [place] Primary Care Unavailable Siska, Gonzalo Referring Unavailable Siska, Gonzalo Attending Unavailable Siska, Gonzalo Consulting Unavailable [facility], [place] Primary Care Unavailable Siska, Gonzalo Referring Unavailable Siska, Gonzalo Attending Unavailable Siska, Gonzalo Consulting Unavailable [facility], [place] Primary Care Unavailable Siska, Gonzalo Attending Unavailable Siska, Gonzalo Referring Unavailable Siska, Gonzalo Consulting Unavailable [facility], [place] Primary Care Unavailable [facility], [place] Primary Care Unavailable Siska, Gonzalo Attending Unavailable Siska, Gonzalo Referring Unavailable Siska, Gonzalo Consulting Unavailable [facility], [place] Primary Care Unavailable Christa Michel Attending Unavailable William Cruz Consulting Unavailable [facility], [place] Primary Care Unavailable [facility], [place] Referring Unavailable William Cruz Attending Unavailable Ralph Haynes Attending Unavailable [facility] Primary Care Unavailable Michelle Gallardo Admitting Unavailable Qian Albrecht Consulting Unavailable Alex Acosta Attending Unavailable Michelle Gallardo Consulting Unavailable Russell Todd Consulting Unavailable Alex Acosta Consulting Unavailable Bernarda Becerril Attending Unavailable Russell Todd Attending Unavailable Michelle Gallardo Attending Unavailable Adithya Harrell Attending Unavailable Miryam Orozco Primary Care Unavailable Mari Mehta Attending Unavaila ble ELDERBROCK, LIZY Kerri Primary Care Unavailable ELDERBROCK, LIZY Kerri Attending Unavailable ELDERBROCK, LIZY Kerri Primary Care Unavailable SELF Referring Unavailable MIRYAM OROZCO Attending Unavailabl STARR Perez Attending Unavail able ELDERBROCK, LIZY D Primary Care Unavailable ELDERBROCK, LIZY D Primary Care Unavailable MIRYAM OROZCO Referring Unavailabl e ELDERBROCK, LIZY D Primary Care Unavailable TANNHOFMIRYAM Referring Unavailabl e ELDERBROCK, LIZY D Primary Care Unavailable TANNMIRYAM GARY Attending Unavailabl e ELDERBROCK, LIZY D Primary Care Unavailable MIRYAM OROZCO Attending Unavailabl e ELDERBROCK, LIZY D Attending Unavailable ELDERBROCK, LIZY D Primary Care Unavailable ELDERBROCK, LIZY D Primary Care Unavailable TANNMIRYAM GARY Referring Unavailabl e SELF Referring Unavailable ELDERBROCK, LIZY D Primary Care Unavailable DEACON VALDEZ Attending Unavailable ELDERBROCK, LIZY D Referring Unavailable ELDERBROCK, LIZY D Primary Care Unavailable MICHAEL CARTER Attending Unavailable ELDERBROCK, LIZY Kerri Primary Care Unavailable MICHAEL CARTER Referring Unavailable ELDERBROCK, LIZY Kerri Primary Care Unavailable ELDERBROCK, LIZY Kerri Attending Unavailable ELDERBROCK, LIZY D Primary Care Unavailable Allergies Allergy Classification Reported Allergen(s) Allergy Type Date of Onset Reaction(s) Facility (20 sources) Aspirin Drug Allergy 11-15-19 09 Intolerance [facility] (20 sources) ceFAZolin; Translations: [CEFAZOLIN SODIUM] Drug Allergy 08-10-19 19 [facility] (20 sources) Ibuprofen; Translations: [IBUPROFEN] Drug Allergy 11-08-19 16 [facility] Work Phone: (20 sources) Sulfamethoxazole / Trimethoprim; Translations: [SULFAMETHOXAZOLE-T RIMETHOPRIM] Drug Allergy 07-24-19 17 [facility] (20 sources) Sulfonamides (Antibiotic); Translations: [SULFA (SULFONAMIDE ANTIBIOTICS)] Drug Allergy 07-24-19 17 Hives, Unknown [facility] (20 sources) Peanut Butter [Other] Propensity to adverse reactions 11-15-19 [facility] (20 sources) ceFAZolin Drug Allergy 08-07-19 Hives [facility] (20 sources) peanut allergenic extract; Translations: [PEANUT] Drug Allergy 08-07-19 Anaphylaxis [facility] (20 sources) Sulfamethoxazole Drug Allergy 08-07-19 Other [facility] (20 sources) Trimethoprim Drug Allergy 08-07-19 Other [facility] (20 sources) Sulfonamides (Antibiotic) Allergy to substance 12-20-19 Unknown [facility] (1 source) OTHER; Translations: [OTHER] Propensity to adverse reactions (disorder) 11-15-19 [facility] Other [place] [facility] (1 source) Peanut oil Propensity to adverse reactions to drug 05-04-19 Anaphylaxis [facility] (1 source) ceFAZolin Drug Allergy 10-27-19 [facility] Repository (1 source) Ibuprofen Drug Allergy 10-27-19 [facility] Repository (1 source) peanut allergenic extract Drug Allergy 10-27-19 [facility] Repository (1 source) Sulfamethoxazole Drug Allergy 10-27-19 [facility] Repository (1 source) Sulfonamides (Antibiotic) Drug allergy (disorder) 10-27-19 [facility] Repository (1 source) Trimethoprim Drug Allergy 10-27-19 [facility] Repository Medications Current Medications Medication Drug Class(es) Dates Sig (Normalized) Sig (Original) acetaminophen 500 mg oral tablet (20 sources) Start: 10-14-2024 End: 10-17-2024 Start: 06-09-2024 End: 10-17-2024 Start: 05-16-2024 End: 05-18-2024 take 650 mg by mouth every four hours as needed Start: 06-27-2022 End: 06-09-2024 take 2 tablets by mo [facility] twice daily acetaminophen (TYLENOL) 500 mg tablet Take 1,000 mg by mouth twice daily. Active Comment on above: Take 1,000 mg by [facility] twice daily. acetaminophen 325 mg / oxyCODONE hydrochloride 5 mg oral tablet (2 sources) Opioid Agonist Start: 10-25-19 End: 11-01-19 take 1 tablet by mouth every four hours as needed oxyCODONE-acetamino phen (PERCOCET) 5-325 mg tablet Take 1 tablet by mouth every 4 hours as needed for pain for up to 7 days. 0 10/24/2024 10/31/2024 Active ALPRAZolam 0.5 mg disintegrating oral tablet (2 sources) Benzodiazepine Start: 06-04-19 End: 06-13-19 ALPRAZolam 0.5 mg dissolvable tablet Indications: Anxiety [...] 5 days. 10 tablet 09/15/2024 09/20/2024 Active apixaban 2.5 mg oral tablet (20 sources) Factor Xa Inhibitor Start: 5 take 1 tablet by mouth twice daily ELIQUIS 2.5 mg tab(s) Take 2.5 mg by mouth two times a day. 10/18/2024 Active Start: 10-04-2024 End: 10-17-2024 Start: 06-09-2024 End: 09-28-2024 Start: 05-17-2024 End: 09-05-2024 Start: 05-17-2024 End: 05-17-2024 atorvastatin 40 mg oral tablet (20 sources) HMG-CoA Reductase Inhibitor Start: 05-18-2024 End: 09-05-2024 take 1 tablet by mouth once daily atorvastatin (LIPITOR) 40 mg tablet Take 1 tablet by mouth once daily. 90 tablet 3 09/05/2024 Active Start: 05-13-2024 End: 05-18-2024 azithromycin 250 mg [...] 09/20/2024 Active benzonatate 100 mg oral capsule (20 sources) Non-narcotic Antitussive Start: 09-04-2024 End: 10-14-2024 take 1 capsule by mouth three times daily as needed for cough benzonatate (TESSALON PERLE) 100 mg capsule Indications: Lower respiratory infection Take 1 capsule by mouth three times a day as needed for cough for up to 12 doses. 12 capsule 09/08/2024 Active Start: 04-15-2023 End: 06-02-2023 take 2 capsules by mouth every eight hours as needed benzonatate (TESSALON PERLES) 100 mg capsule Take 2 capsules by mouth three times a day as needed. 30 capsule 0 04/15/2023 06/02/2023 Discontinued Comment on above: Take 2 capsules by m out three times a day as needed. bisacodyl 10 mg rectal suppository (20 sources) Stimulant Laxative Start: 06-09-2024 End: 10-14-2024 bisacodyl (DULCOLAX) 10 mg supp 1 suppository by RECTAL route once daily as needed for constipation. 10 suppository 5 09/05/2024 Active Start: 05-05-2024 End: 05-18-2024 calcium acetate 667 mg oral capsule (20 sources) Start: 04-14-2016 End: 09-22-2024 take 1 capsule by mouth three times daily calcium acetate,phosphat bind, (PHOSLO) 667 mg capsule Take 1 capsule by mouth three times a day. 90 capsule 3 09/22/2024 Active Comment on above: TAKE 1 CAPSULE BY MO [facility] THREE TIMES DAILY. carvedilol 6.25 mg oral tablet (20 sources) alpha-Adrenerg ic Linda, beta-Adrenergi c Linda Start: 06-09-2024 End: 09-28-2024 Start: 05-18-2024 End: 09-05-2024 Start: 05-17-2024 End: 05-18-2024 Start: 05-11-2024 End: 05-17-2024 cholecalciferol 0.025 mg ora l tablet (20 sources) Vitamin D Start: 07-25-2021 End: 10-26-2024 Start: 04-29-2016 End: 09-05-2024 Start: 04-29-2016 End: 10-17-2019 take 2000 [IU] by mouth once daily Cholecalciferol (Vitamin D3) Discontinued 2000 UNIT PO DAILY April 29, 2016 12:00am October 17, 2019 12:07pm Comment on above: Take [address] [facility] once daily. ciprofloxacin 250 mg oral tablet [...] Comment on above: Take [address] [facility] three times daily for 3 days. Start [...] 1 tablet by nika th once daily. doxycycline hyclate 100 mg o ral capsule (20 sources) Tetracycline-class Drug Start: 10-26-2024 Start: 10-14-2024 End: 10-17-2024 Start: 09-04-2024 End: 09-28-2024 Start: 03-01-2024 End: 06-10-2024 enteric contrast (will be provided with radiology [...] daily. 90 tablet 09/05/2024 Active Start: 05-18-2024 End: 10-17-2024 Start: 03-01-2024 End: 09-05-2024 take 1 tablet by mouth once daily ferrous sulfate 325 mg (65 mg iron) tablet Take 325 mg by mouth once daily. 03/01/2024 09/05/2024 Discontinued Start: 04-14-2016 End: 04-29-2016 Start: 04-14-2016 End: 04-29-2016 fluorometholone 1 mg/ml ophthalmic suspension (20 sources) Corticosteroid Start: 02-15-2024 End: 10-26-2024 fluorometholone (FML LIQUID FILM) 0.1 % ophthalmic suspension Use 1 drop in both eyes two times a day. 02/15/2024 Active glucosamine 500 ga-kavjoccuj-cgksxowg comp 400 mg-D3 667 unit-C-Mn cap (20 sources) Start: 10-17-2019 take 1 capsule by mouth three times daily glucosamine 500 hz-dedspjulz-kosnrda n comp 400 mg-D3 667 unit-C-Mn cap Active 1 CAP PO THREE TIMES A DAY October 17, 2019 12:03pm Start: 10-17-2019 take 1 capsule by [facility] three times daily glucosamine 500 mi-xsexyonpj-eafrvszd comp 400 mg-D3 667 unit-C-Mn cap Active [...] 09, 2018 1:00am October 17, 2019 1:13pm lacosamide 100 mg oral table t (20 sources) Anti-epileptic Agent Start: 05-18-2024 End: 05-18-2024 Start: 05-18-2024 End: 04-22-2025 take 1 tablet by mouth every twelve hours lacosamide (VIMPAT) 100 mg tab Indications: Seizures (HCC) Take 1 tablet by mouth every 12 hours for 180 days. 60 tablet 5 10/24/2024 04/22/2025 Active Start: 05-05-2024 End: 05-18-2024 take 100 mg intravenously every twelve hours levonorgestrel 0.908112 mg/hr intrauterine system (20 sources) Progestin, Progestin-containing [...] 05-12-2024 End: 05-17-2024 Start: 09-06-2020 End: 09-05-2024 take 1 tablet by mouth once daily for thyroid dysfunction levothyroxine (LEVOXYL) 125 mcg tablet Take 1 tablet by mouth once daily. Take on empty stomach. For thyroid. 90 tablet 3 09/05/2024 Active Start: 02-09-2018 End: 07-25-2021 Comment on above: Take 1 tablet by nika th once daily. Take on empty stomach. For thyroid. lidocaine 0.05 mg/mg medicated patch (20 sources) Antiarrhythmic, Amide Local Anesthetic Start: apply 1 dose transdermal route once daily lidocaine (LIDODERM) 5 % Apply 1 patch as directed once daily. REMOVE AFTER 12 HOURS. 10/24/2024 Active Start: 10-04-2024 End: 10-17-2024 Start: 11-16-2023 End: 11-16-2023 lidocaine (PF) 20 mg/mL (2 % ) 200 mg injection (XYLOCAINE) Start: 07-15-2023 End: [...] (1 % ) 100 mg injection (XYLOCAINE) magnesium hydroxide 80 mg/ml oral suspension (18 sources) Start: 08-22-2024 take 30 mL by mouth once daily as needed magnesium hydroxide (MOM) 400 mg/5 mL suspension Take 30 mL by mouth once daily as needed. 08/22/2024 Active melatonin 3 mg oral tablet (20 sources) Start: 10-24-2024 take 1 tablet by mouth every twenty-four hours as needed melatonin 3 mg tablet Take 1 tablet by mouth at bedtime as needed for insomnia. 10/24/2024 Active Start: 10-17-2024 Start: 02-24-2024 End: 03-01-2024 mirtazapine 7.5 mg oral tablet (20 sources) Start: 09-05-2024 take 1 tablet by mouth once daily at bedtime mirtazapine (REMERON) 7.5 mg tablet Take 1 tablet by mouth daily at bedtime. 30 tablet 2 09/05/2024 Active Start: 06-09-2024 End: 10-17-2024 Multivitamin preparation (4 sources) Start: 06-27-2022 take 1 tablet by mouth once daily Multivitamin Active 1 TABLET PO DAILY June 26, 2022 11:00pm Start: 06-27-2022 take 1 tablet by nika th once daily Multivitamin Active 1 TABLET PO DAILY June 27, 2022 12:00am multivitamin tablet (7 sources) Start: 09-22-2024 take 1 tablet by mouth [...] Start: 04-14-2016 take 1 tablet by nika th once daily Multivitamin With Folic Acid Active 1 TABLET PO DAILY April 14, 2016 1:00am nitroglycerin 0.4 mg sublingual tablet (20 sources) Nitrate Vasodilator Start: 06-27-2022 nitroglyce rin sublingual (NITROQUICK) 0.4 mg SL tablet Dissolve 0.4 mg under the tongue every 5 minutes as needed for chest pain. 06/27/2022 Active nystatin 100 unt/mg topical powder (3 sources) Polyene Antifungal Start: 10-26-2024 Start: 10-24-2024 nystatin (MYCO STATIN) powder Apply 1 application to affected area four times daily. 60 g 5 10/24/2024 Active oxyCODONE hydrochloride 5 mg oral tablet (20 sources) Opioid Agonist Start: 10-17-2024 Start: 02-24-2024 End: 09-28-2024 phenazopyridine hydrochloride 200 mg oral tablet (20 sources) Start: 09-26-2022 End: 10-06-2022 take 1 [...] on above: Take 2 tablets by [facility] three times daily as needed for up to 10 days. Take 1 tablet [facility] three times daily as needed for pain for up to 10 days. predniSONE 20 mg oral tablet (16 sources) Start: 09-20-2024 End: 10-04-2024 take 2 tablets by mouth once daily predniSONE (DELTASONE) 20 mg tablet Take 2 tablets by mouth once daily. 10 tablet 09/20/2024 Active sodium bicarbonate 650 mg oral tablet (12 sources) Start: 10-24-2024 take 1 tablet by mouth four times daily sodium bicarbonate 650 mg tablet Take 1 tablet by mouth four times daily. 10/24/2024 Active Start: 10-04-2024 End: 10-17-2024 sodium fluoride 0.011 mg/mg toothpaste (1 source) Start: 10-26-2024 Vibegron (17 sources) Start: 10-26-2024 Start: 06-07-2023 End: 06-09-2024 Start: 06-07-2023 take 1 tablet by mouth once da yevgeniy Vibegron (Gemtesa) 75 mg tablet Active 75 MG PO DAILY June 07, 2023 12:00am Start: 06-07-2023 take 1 tablet by mouth once da yevgeniy Vibegron (Vibegron 75 Mg Tablet) 75 mg tablet Active 75 MG PO DAILY June 07, 2023 12:00am Vitamin B Complex (20 sources) Start: 07-25-2021 [...] once daily. zinc gluconate 50 mg oral tablet (15 sources) Start: 09-22-2024 take 1 tablet by mouth once daily Zinc Gluconate 50 mg tablet Take 1 tablet by mouth once daily. 90 tablet 3 09/22/2024 Active zolpidem tartrate 10 mg oral tablet (20 sources) gamma-Aminobutyri c Acid-ergic Agonist Start: 07-04-2024 End: 12-14-2024 take 1 tablet by mouth at bedtime as needed zolpidem (AMBIEN) 10 mg Indications: Insomnia, unspecified type Take 1 tablet by mouth at bedtime as needed for up to 90 days. 30 tablet 2 09/15/2024 12/14/2024 Active Start: 06-14-2024 End: 10-04-2024 Start: 03-01-2024 End: 06-10-2024 Start: 01-09-2021 End: 07-01-2024 Comment on above: Take 1 tablet by nika th at bedtime as needed for up to 90 days. (20 sources) Start: 10-17-2024 Start: 09-28-2024 Start: 06-09-2024 End: 10-17-2024 Start: 06-09-2024 Start: 05-08-2024 End: 05-08-2024 Start: [...] 01-28-2024 Comment on above: Take by mouth. ascorbic acid 500 mg oral tablet (20 sources) Vitamin C Start: 03-01-2024 End: [...] mg/mL) 7.5 mg injection (MARCAINE PF) calcium ascorbate 500 mg ora l tablet (20 sources) Start: 07-25-2021 End: 03-01-2024 calcium carbonate 500 mg birdie wable tablet (20 sources) Start: 03-01-2024 End: 06-09-2024 Start: 02-24-2024 End: 03-01-2024 calcium carbonate 1500 mg / cholecalciferol 0.01 mg oral capsule (20 sources) Vitamin D Start: 07-25-2021 End: 02-24-2024 Start: 07-25-2021 take 1 capsule by [facility] twice daily Calcium Carbonate-Vitamin D3 Active 1 CAP PO TWICE A DAY July 24, 2021 11:00pm Start: 10-21-2017 End: 08-22-2024 take 1 tablet by mouth twice daily at mealtime wqpgqxc-qxkgjhtnd-elcjlgg D3 (CALCIUM 500+D) 500 mg(1,250mg) -200 unit per tablet Take 1 tablet by mouth twice daily with meals. 180 tablet 3 10/21/2017 08/22/2024 Discontinued (Course of therapy completed) Comment on above: Take 1 tablet by [facility] twice daily with meals. 10 [...] gluconate 1.2 mg/ml mouthwash (1 source) Start: 5 End: 5 chondroitin sulfates 400 mg / glucosamine hydrochloride 500 mg oral capsule (20 sources) Start: End: take 1 capsule by mouth three times daily Glucosamine-Chondroi t-Vit C-Mn (GLUCOSAMINE CHONDROITIN MAXSTR) 500-400 mg cap Take 1 capsule by mouth three times daily. 90 capsule 11 11/22/2020 08/22/2024 Discontinued (Course of therapy completed) Comment on above: Take 1 capsule by [facility] three times daily. cyclobenzaprine hydrochloride 10 mg [...] guaiFENesin 600 mg extended release oral tablet (16 sources) Uncompetitive R-vaxmwt-E-aspartate Receptor Antagonist, Sigma-1 Agonist Start: 09-05-2024 End: [...] to affecte d area four times daily. Drug or medicament (substanc e) (1 source) Start: 05-06-2024 End: 05-07-2024 2 ml fentaNYL 0.05 mg/ml injection (3 sources) Opioid Agonist Start: 05-06-2024 End: 05-06-2024 Start: 05-05-2024 End: 05-05-2024 Start: 05-05-2024 End: 05-05-2024 furosemide 20 mg oral tablet (20 sources) Loop Diuretic Start: 10-14-2024 End: 10-17-2024 Start: 06-09-2024 End: 10-17-2024 take 1 tablet by mouth every other day furosemide (LASIX) 40 mg tablet Indications: Leg swelling Take 1 tablet by mouth every other day. 45 tablet 3 09/05/2024 Active Start: 05-14-2024 End: 05-17-2024 Start: 05-10-2024 End: [...] tablet by mouth once daily. 30 tablet 10/11/2020 11/26/2021 Discontinued Comment on above: Take 1 tablet by nika th once daily. take 1 tablet by nika th every day gabapentin 100 mg oral emilyu valentin (20 sources) Anti-epileptic Agent Start: 10-04-2024 End: 10-26-2024 Start: 09-22-2024 End: 03-21-2025 take 1 capsule by mouth three times daily, then take 1 capsule by mouth three times daily gabapentin (NEURONTIN) 300 mg capsule Indications: neuropathic pain Take 1 capsule by mouth three times a day for 180 days. Take one pill 3 times per day 270 capsule 1 09/22/2024 03/21/2025 Active Start: 11-28-2021 End: 08-22-2024 Start: 08-06-2021 End: [...] on above: Take 1 capsule by mo [facility] three times daily for 90 days. Take 2 capsules by m out three times daily for 30 days. Take one pill 3 time s per day Take 1 capsule by mo [facility] three times daily for 90 days. Take one pill 3 times per day Do not start before May 08, 2022. Take 1 capsule by mo [facility] three times daily for 180 days. Take one pill 3 times per day Take 1 capsule by mo [facility] three times a day for 180 days. Take one pill 3 times per day GEMTESA 75 mg tablet (20 sources) [...] on above: Take 1 tablet by nika every afternoon. Glucosamine-Chondroit -Vit C-Mn (GLUCOSAMINE CHONDROITIN MAXSTR) 500-400 mg cap (5 sources) Start: 1 take 1 capsule by mouth three times daily Glucosamine-Chondroi t-Vit C-Mn (GLUCOSAMINE CHONDROITIN MAXSTR) 500-400 mg cap Take 1 capsule by mouth three times daily. 90 capsule 11 11/22/2020 Active Comment on above: Take 1 capsule by mo [facility] three times daily. 12 hr guaiFENesin 600 mg extended release oral tablet (18 sources) Start: 5 End: 5 Start: 09-15-2024 take 1 tablet by nika th twice daily guaiFENesin (MUCINEX) 600 mg 12 hr tablet Indications: Lower respiratory infection Take 1 tablet by mouth two times a day. 20 tablet 09/15/2024 Active Start: 05-07-2024 End: 05-18-2024 take 200 mg by mouth every six hours as needed 250 ml heparin sodium, porcine 100 unt/ml injection (1 source) Unfractionated Heparin, Anti-coagulant Start: 05-10-2024 End: 05-10-2024 1 ml hydrALAZINE hydrochloride 20 mg/ml injection (1 source) Arteriolar Vasodilator Start: 05-10-2024 End: 05-18-2024 take 5 mg intravenously every four hours as needed hydroCHLOROthiazide 12.5 mg / lisinopril 10 mg oral tablet (20 sources) Thiazide Diuretic, Angiotensin Converting Enzyme Inhibitor Start: 06-27-2022 End: 06-27-2022 take 1 tablet by mouth once daily Lisinopril-Hydr ochlorothiazide Discontinued 1 TABLET PO DAILY June 26, [...] 1 tablet by nika th once daily. hydrocortisone 0.025 mg/mg topical ointment [...] 13, 2022 11:00pm June 27, 2022 11:09am levoFLOXacin 750 mg oral tablet (1 source) Quinolone Antimicrobial Start: 05-04-2024 End: 05-04-2024 take 750 mg nasogastric route every twenty-four hours lisinopril 10 mg oral tablet (17 sources) Angiotensin Converting Enzyme Inhibitor Start: 06-07-2023 [...] 1 tablet by nika th once daily Magnesium 200 mg tab Take 200 mg by mouth once daily. 30 tablet 01/03/2017 Active Comment on above: Take 200 [...] 05-11-2024 End: 05-11-2024 Start: 05-05-2024 End: 05-05-2024 1 ml methylPREDNISolone acetate 40 mg/ml injection [...] oral tablet (12 sources) beta3-Adrenergic Agonist Start: 3 End: 3 take 1 tablet by mouth once daily mirabegron (MYRBETRIQ) 25 mg Tb24 Indications: Urge urinary incontinence Take 1 tablet by mouth once daily. 30 tablet 5 06/30/2022 12/22/2022 Discontinued Comment on above: Take 1 tablet by [facility] once daily. miSOPROStol 0.2 mg oral tablet (20 sources) Prostaglandin E1 Analog Start: 2 End: 2 miSOPROStol (CYTOTEC) 200 mcg tablet Take two tablets PO night before procedure and two tablets morning of procedure 4 tablet 0 06/14/2021 07/16/2021 Discontinued Start: 12-31-2017 End: 02-09-2018 Start: 12-31-2017 End: 02-09-2018 Misoprostol Discontinued 200 MCG PO NEEDED December 30, 2017 11:00pm February 09, 2018 5:53pm Comment on above: Take two tablets PO night before procedure and two tablets morning of procedure nitrofurantoin, macrocrystals 25 mg / nitrofurantoin, monohydrate 75 mg oral capsule (20 sources) Nitrofuran Antibacterial Start: 10-25-19 End: 10-25-19 take 1 capsule by mouth once daily nitrofurantoin monohydrate and macrocrystal (MACROBID) 100 mg capsule Take 1 capsule by mouth once daily. 30 capsule 10/24/2024 10/24/2024 Discontinued Start: 06-27-2022 End: 10-03-2022 Start: 06-26-2022 End: 10-03-2022 Comment on above: Take 1 capsule by [facility] twice daily with meals for 7 days. omeprazole 20 mg delayed rel ease oral capsule (20 sources) Proton Pump Inhibitor Start: 11-13-2017 End: 08-22-2024 Comment on above: Take 1 capsule by [facility] once daily. TAKE 1 CAPSULE BY [facility] ONCE DAILY ondansetron 4 mg disintegrat ing oral tablet (16 sources) Serotonin-3 Receptor Antagonist Start: 09-05-2024 End: 09-28-2024 Start: 08-22-2024 End: 09-05-2024 take 1 tablet by mouth every four hours as needed ondansetron (ZOFRAN) 4 mg tablet Take 1 tablet by mouth every 4 hours as needed for nausea/vomiting. 08/22/2024 09/05/2024 Discontinued pantoprazole 40 mg delayed r elease oral tablet (20 sources) Proton Pump Inhibitor Start: 06-09-2024 End: 09-28-2024 Start: 04-14-2016 End: 04-30-2016 phenol 14 mg/ml mucosal spray (1 source) Start: 05-11-2024 End: 05-18-2024 polyethylene glycol 3350 [id number] mg powder for oral solution (20 sources) [...] Comment on above: TAKE 1 CAPSULE BY [facility] ONCE DAILY. potassium bicarbonate 20 meq effervescent [...] Comment on above: Take [address] [facility] once daily. TAKE 1 CAPSULE BY [facility] ONCE DAILY traMADol hydrochloride 50 mg oral [...] Comment on above: Take 1 tablet by [facility] twice daily as needed for up to [...] on above: Take 1 capsule by [facility] four times daily for 10 days. vitamin b6 100 mg oral tablet (20 sources) Start: 9 End: Comment on above: Take one(1) tablet d aily. vitamin e 180 mg oral capsule (20 sources) Start: 2 End: 5 Start: 07-12-2008 End: 08-22-2024 VITAMIN E 400 [...] zinc acetate 25 mg oral caps ule (14 sources) Start: 02-24-2024 End: 06-09-2024 (1 source) [...] unspecified] Onset: 4 07-31-2003 Chronic Cardiac dysrhythmias (20 sources) Ventricular tachycardia; Translations: [V-tach] Onset: 5 Resolved: 5 05-11-2024 Chronic Chronic kidney disease (20 sources) Anemia; Translations: [Chronic kidney disease, unspecified] Onset: 6 02-26-2015 Chronic Chronic kidney disease (2 sources) Chronic kidney disease; Translations: [Chronic kidney disease, stage 3b] Onset: Chronic obstructive pulmonary disease and bronchiectasis (20 sources) Chronic obstructive lung disease; Translations: [Chronic [...] [Presence of (intrauterine) contraceptive device] 12-04-2023 Episodic Coronary atherosclerosis and other heart disease (12 sources) Coronary arteriosclerosis; Translations: [Atherosclerotic heart disease of [place] coronary artery without angina pectoris] 10-04-2024 Chronic Deficiency and other anemia (18 sources) Anemia of chronic disease; Translations: [Anemia [...] unspecified] 05-08-2024 Episodic Deficiency and other anemia (4 sources) Anemia, unspecified; Translations: [Anemia, unspecified] Onset: 5 Episodic Deficiency and other anemia (20 sources) Chronic anemia; Translations: [Anemia, unspecified] 05-19-2024 Episodic Deficiency and other anemia (12 sources) Iron deficiency anemia; Translations: [Iron deficiency anemia, unspecified] 10-04-2024 Episodic Disorders of lipid metabolism (17 sources) Hyperlipidemia; Translations: [Hyperlipidemia, unspecified] Onset: 4 07-22-2023 Chronic E Codes: Fall (10 sources) Fall; Translations: [Unspecified fall, initial encounter] Episodic Epilepsy; convulsions (20 sources) Status epilepticus; Translations: [Epilepsy, unspecified, not intractable, with status epilepticus] Onset: 5 05-18-2024 Chronic Epilepsy; convulsions (4 sources) Seizure; Translations: [Unspecified convulsions] Onset: 5 08-22-2024 Episodic Esophageal disorders (12 sources) Gastroesophageal reflux disease; Translations: [Gastro-esophageal reflux disease without esophagitis] 10-04-2024 Chronic Essential hypertension (20 sources) Benign essential hypertension; [...] [Hypertensive heart disease with heart failure] Onset: 5 Chronic Intestinal infection (1 source) Clostridium difficile colitis; Translations: [Enterocolitis due to Clostridium difficile, not specified as recurrent] Episodic Intestinal obstruction without hernia (16 sources) Fecal impaction; Translations: [Fecal impaction of rectum] 06-08-2023 Episodic Malaise and fatigue (20 sources) Asthenia; Translations: [Weakness] Onset: 5 05-20-2024 Episodic Nausea and vomiting (6 sources) Nausea and vomiting; Translations: [Nausea with vomiting, unspecified] 10-12-2024 Episodic Nonspecific chest pain (20 sources) Chest pain; Translations: [Chest pain, unspecified] Onset: 5 06-27-2022 Episodic Nutritional deficiencies (3 sources) Vitamin D deficiency; Translations: [Vitamin D deficiency, unspecified] Onset: 5 05-08-2024 Chronic Open wounds of extremities (20 sources) Injury of right leg; Translations: [Unspecified open wound, right lower leg, subsequent encounter] Onset: 5 08-22-2024 Episodic Osteoarthritis (20 sources) Primary gonarthrosis, bilateral; Translations: [Bilateral primary osteoarthritis of knee] Onset: 4 04-27-2017 Chronic Osteoporosis (17 sources) Osteoporosis; Translations: [Age-related osteoporosis without current pathological fracture] Onset: 4 05-10-2024 Chronic Other aftercare (1 source) Aftercare following joint replacement surgery; Translations: [Aftercare following joint replacement surgery] Onset: 4 Chronic Other aftercare (19 sources) Long-term current use of anticoagulant; 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] 07-29-2024 Episodic Other and ill-defined heart disease (14 sources) Diastolic dysfunction; Translations: [Other ill-defined heart diseases] 03-11-2024 Chronic Other and ill-defined heart disease (1 source) Other ill-defined heart diseases; Translations: [Other ill-defined heart diseases] Onset: 4 Chronic Other bone disease and musculoskeletal deformities (20 sources) Osteopenia; Translations: [Other specified disorders of bone density and structure, unspecified site] 06-18-2024 Episodic Other circulatory disease (1 source) Other specified symptoms and signs involving the circulatory and respiratory systems; Translations: [Other specified symptoms and signs involving the circulatory and respiratory systems] Onset: 5 Episodic Other connective tissue disease (14 sources) History of operative procedure on shoulder; [...] disorders] 12-06-2021 Episodic Other connective tissue disease (11 sources) [...] Chronic Other diseases of veins and lymphatics (14 sources) Venous insufficiency of leg; Translations: [Venous insufficiency (chronic) (peripheral)] 03-11-2024 Episodic Other female genital disorders (20 sources) Complex atypical endometrial hyperplasia; 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]] Onset: 8 01-12-2018 Chronic Other gastrointestinal disorders (1 source) Chronic idiopathic constipation; Translations: [Chronic idiopathic constipation] Onset: 4 Chronic Other gastrointestinal disorders (1 source) Altered [...] [Other fecal abnormalities] Episodic Other gastrointestinal disorders (16 sources) Constipation; Translations: [Constipation, unspecified] 06-07-2023 Episodic Other gastrointestinal disorders (2 sources) Constipation, unspecified; Translations: [Constipation, unspecified] 06-08-2023 Episodic Other gastrointestinal disorders (2 sources) Chronic constipation; Translations: [Other constipation] 07-22-2023 Episodic Other gastrointestinal disorders (20 sources) Dysphagia; Translations: [Dysphagia, unspecified] 05-20-2024 Episodic Other gastrointestinal disorders (20 sources) Incontinence of feces; Translations: [Full incontinence of feces] 06-18-2024 Episodic Other gastrointestinal disorders (20 sources) Occult blood in stools; Translations: [Other [...] breath; Translations: [SOB (shortness of breath)] Onset: Episodic Other lower respiratory disease (1 source) Unspecified acute lower respiratory infection; Translations: [Lower respiratory infection] Onset: Episodic Other nervous system disorders (16 sources) Chronic pain; Translations: [Other chronic pain] Chronic Other nervous system disorders (20 sources) Disorder of brain; Translations: [Encephalopathy, unspecified] 05-08-2024 Chronic Other nervous system disorders (3 sources) Encephalopathy, unspecified; Translations: [Encephalopathy, unspecified] Onset: Chronic Other nervous system disorders (4 sources) Other chronic pain; Translations: [Other chronic pain] Onset: Chronic Other nervous system disorders (2 sources) Impairment of balance; Translations: [Other abnormalities of gait and mobility] 12-14-2023 Episodic Other nervous system disorders (20 sources) Toxic metabolic encephalopathy; Translations: [Toxic metabolic encephalopathy] 10-01-2024 Episodic Other nervous system disorders (20 sources) Tremor; Translations: [Tremor, unspecified] 09-29-2024 Episodic Other nervous system disorders (1 source) Tremor, unspecified; Translations: [Tremor, unspecified] Onset: Episodic Other non-traumatic joint disorders (20 sources) Spondylosis; Translations: [Osteophyte, vertebrae] 06-18-2024 Chronic Other non-traumatic joint disorders (1 source) Osteophyte, vertebrae; Translations: [Osteophyte, vertebrae] Onset: 5 Chronic Other non-traumatic joint disorders (1 source) Pain in left shoulder; Translations: [Pain in joint, shoulder region] 12-22-2022 Episodic Other non-traumatic joint disorders (3 sources) Shoulder pain; Translations: [Pain in unspecified shoulder] 07-22-2023 Episodic Other non-traumatic joint disorders (20 sources) Pain in wrist; Translations: [Pain in left wrist] 06-06-2024 Episodic Other non-traumatic joint disorders (1 source) Pain in left knee; Translations: [Pain in left knee] Onset: 5 Episodic Other nutritional; endocrine; and metabolic disorders [...] nutritional; endocrine; and metabolic disorders (20 sources) Hyperphosphatemia; Translations: [Other disorders of phosphorus [...] 44.9 in adult] Onset: 2 Chronic Other nutritional; endocrine; and metabolic disorders (12 sources) Loss of appetite; Translations: [Anorexia] 10-04-2024 Episodic Phlebitis; thrombophlebitis and thromboembolism (1 source) 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; Translations: [Chronic embolism and thrombosis of unspecified internal jugular vein] 08-22-2024 Chronic Pulmonary heart disease (15 sources) Pulmonary hypertension; Translations: [Pulmonary hypertension, unspecified] Onset: 4 03-11-2024 Chronic Residual codes; unclassified (20 sources) Sleep apnea; Translations: [Sleep apnea, unspecified] Onset: 4 07-31-2003 Chronic Residual codes; unclassified (20 sources) Obstructive sleep apnea syndrome; Translations: [Obstructive sleep apnea (adult) (pediatric)] 05-19-2024 Chronic Residual codes; unclassified (2 sources) Obstructive sleep apnea (adult) (pediatric); Translations: [Obstructive sleep apnea (adult) (pediatric)] Onset: 4 Chronic Residual codes; unclassified (5 sources) Bilateral lower limb edema; Translations: [Localized edema] Episodic Residual codes; unclassified (5 sources) H/O: fracture; Translations: [Other specified postprocedural states] Episodic Residual codes; unclassified (20 sources) History of operation on musculoskeletal system; Translations: [Other specified postprocedural states] 02-09-2018 Episodic Residual codes; unclassified (13 sources) Acute pain; Translations: [Pain, unspecified] 07-29-2024 Episodic Residual codes; unclassified (2 sources) Other specified postprocedural states; Translations: [Other specified postprocedural states] Onset: 5 Episodic Screening and history of mental health and substance abuse codes (20 sources) Tobacco use and exposure - finding; Translations: [Personal history of nicotine dependence] 02-09-2018 Episodic Spondylosis; intervertebral disc disorders; other back problems (20 sources) Lumbar spondylosis; Translations: [Spondylosis without myelopathy or radiculopathy, lumbar region] Onset: 2 Chronic Superficial injury; contusion (20 sources) Contusion of right lower leg, initial encounter; Translations: [Hematoma of right lower extremity] Onset: 5 07-29-2024 Episodic Thyroid disorders (20 sources) Acquired hypothyroidism; Translations: [Hypothyroidism, unspecified] Onset: 9 Chronic Unclassified (1 source) Chronic atrial fibrillation, unspecified; Translations: [Chronic atrial fibrillation, unspecified] Onset: 5 Unclassified (1 source) Acidosis, unspecified; Translations: [Acidosis, unspecified] Onset: 5 Unclassified (1 source) Other toxic encephalopathy; 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 coli] as the cause of diseases classified elsewhere; Translations: [Unspecified Escherichia coli [E. coli] as the cause of diseases classified elsewhere] Onset: 06-10-2024 Episodic Cardiac dysrhythmias (20 sources) Bradycardia; Translations: [Bradycardia, unspecified] Onset: 06-10-2024 06-18-2024 Episodic Complications of surgical procedures or medical care (20 sources) Non-healing surgical wound; Translations: [Other complications of procedures, not elsewhere classified, initial encounter] Onset: 03-16-2007 Resolved: 05-18-2009 05-18-2009 Episodic Conditions associated with dizziness or vertigo (2 sources) Dizziness; Translations: [Dizziness and giddiness] Onset: 11-09-2023 11-09-2023 Episodic Deficiency and other anemia (1 source) Nutritional anemia, unspecified; Translations: [Nutritional anemia, unspecified] Onset: 03-03-2024 Episodic Deficiency and other anemia (1 source) Iron deficiency anemia, unspecified; Translations: [Iron deficiency anemia, unspecified iron deficiency anemia type] Onset: 03-16-2024 Episodic E Codes: Adverse effects of medical drugs (15 sources) Adverse reaction to drug; Translations: [Adverse effect of unspecified drugs, medicaments and biological substances, initial encounter] Onset: 03-03-2024 05-19-2024 Episodic Immunizations and screening for infectious disease (20 sources) Methicillin resistant staphylococcus aureus carrier; Translations: [Carrier or suspected carrier of Methicillin resistant Staphylococcus aureus] Onset: 01-28-2024 07-25-2021 Episodic Nutritional deficiencies (15 sources) Iron deficiency; Translations: [Iron deficiency] Onset: 03-03-2024 05-20-2024 Episodic Other aftercare (1 source) Encounter for [...] 02-19-2011 02-19-2011 Episodic Other connective tissue disease (6 sources) Other specified soft tissue disorders; Translations: [Swelling of limb] Onset: 11-09-2023 Episodic Other connective tissue disease (1 source) [...] non-traumatic joint disorders (20 sources) Pain in unspecified knee; Translations: [Pain in joint, lower leg] Onset: 11-09-2023 Episodic Other non-traumatic joint disorders (20 sources) Pain in lower limb; Translations: [Pain in unspecified knee] Onset: 11-14-2008 Resolved: 08-21-2009 08-21-2009 Episodic Other non-traumatic joint disorders (1 source) Pain in left wrist; Translations: [Pain in left wrist] Onset: 06-10-2024 Episodic Other non-traumatic joint disorders (1 source) Pain in unspecified shoulder; Translations: [Chronic shoulder pain, unspecified laterality] Onset: 11-09-2023 Episodic Other screening for suspected conditions (not mental disorders or infectious disease) (20 sources) Abnormal results of kidney function studies; Translations: [Nonspecific abnormal results of function study of kidney] Onset: 11-24-2016 Resolved: 07-12-2021 12-22-2022 Episodic Other skin disorders (20 sources) Mass of skin; Translations: [Localized swelling, mass and lump, unspecified] Onset: 07-21-2008 Resolved: 08-18-2018 08-18-2018 Episodic Other skin disorders (1 source) Other skin changes; Translations: [Skin irritation] Onset: 03-16-2024 Episodic Phlebitis; thrombophlebitis and thromboembolism (20 sources) History of thromboembolism of vein; Translations: [Personal history of other venous thrombosis and embolism] Onset: 07-21-2003 Resolved: 08-21-2009 02-09-2018 Episodic Pulmonary heart disease (20 sources) Infarction of lung due to embolus; Translations: [Pulmonary embolism and infarction] Onset: 07-21-2003 Resolved: 08-21-2009 08-21-2009 Episodic Residual codes; unclassified (20 sources) Insomnia; Translations: [Insomnia, unspecified] Onset: 07-30-2011 Episodic Residual codes; unclassified (2 sources) Insomnia, unspecified; Translations: [Insomnia, unspecified] Onset: 07-30-2011 Episodic Residual codes; unclassified (1 source) Asymptomatic menopausal state; Translations: [Asymptomatic postmenopausal status] Onset: 03-16-2024 Episodic Respiratory failure; insufficiency; arrest (adult) (20 sources) Acute respiratory failure; Translations: [Acute respiratory failure, unspecified whether with hypoxia or hypercapnia] Onset: 05-04-2024 05-08-2024 Episodic Septicemia (except in labor) (20 sources) Septic shock; Translations: [Sepsis, unspecified organism] Onset: 05-23-2024 06-18-2024 Episodic Shock (4 sources) Shock; Translations: [Shock, unspecified] Onset: 05-13-2024 05-04-2024 Episodic Skin and subcutaneous tissue infections (15 sources) Cellulitis; Translations: [Cellulitis, unspecified] Onset: 03-03-2024 05-19-2024 Episodic Spondylosis; intervertebral disc disorders; other back problems (20 sources) Backache; Translations: [Dorsalgia, unspecified] Onset: 10-16-2021 Episodic Unclassified (20 sources) ASA CLASS III Onset: 05-07-2005 Resolved: 07-12-2021 07-12-2021 Viral infection (20 sources) Disease caused by 2019-nCoV; Translations: [COVID-19] Onset: 01-19-2021 07-25-2021 Episodic Results Test Name Value Interpretation Reference Range Facility Basic Metabolic Profile (BMP )on 11-09-2024 BUN Normal 07-23 [facility] Comment on above: Result Comment: Canc elled via OM: Order cancelled - Patient discharged Performed By: #### L 500.2500, L100.0100 ####[facility] [address] [place], [address] BUN/CRE Normal 10-20 [facility] Comment on above: Result Comment: Canc elled via OM: Order cancelled - Patient discharged Performed By: #### L 500.2500, L100.0100 ####[facility] [address] [place], [address] Calcium Normal 7.6-11.0 [facility] Comment on above: Result Comment: Canc elled via OM: Order cancelled - Patient discharged Performed By: #### L 500.2500, L100.0100 ####[facility] [address] [place], [address] CL Normal 98-108 [facility] Comment on above: Result Comment: Canc elled via OM: Order cancelled - Patient discharged Performed By: #### L 500.2500, L100.0100 ####[facility] [address] [place], [address] CO2 Normal 21.0-32.0 [facility] Comment on above: Result Comment: Canc elled via OM: Order cancelled - Patient discharged Performed By: #### L 500.2500, L100.0100 ####[facility] [address] [place], [address] CREAT,SERUM Normal 0.70-1.20 [facility] Comment on above: Result Comment: Canc elled via OM: Order cancelled - Patient discharged Performed By: #### L 500.2500, L100.0100 ####[facility] [address] [place], [address] eGFR Normal >60 [facility] Comment on above: Result Comment: Canc elled via OM: Order cancelled - Patient discharged Performed By: #### L 500.2500, L100.0100 ####[facility] [address] [place], [address] GAP Normal 5-15 [facility] Comment on above: Result Comment: Canc elled via OM: Order cancelled - Patient discharged Performed By: #### L 500.2500, L100.0100 ####[facility] [address] [place], [address] GLU Normal 70-99 [facility] Comment on above: Result Comment: Canc elled via OM: Order cancelled - Patient discharged Performed By: #### L 500.2500, L100.0100 ####[facility] [address] [place], [address] Potassium Normal 3.3-5.1 [facility] Comment on above: Result Comment: Canc elled via OM: Order cancelled - Patient discharged Performed By: #### L 500.2500, L100.0100 ####[facility] [address] [place], [address] Basic Metabolic Profile (BMP) Normal 133-145 [facility] Comment on above: Result Comment: Canc elled via OM: Order cancelled - Patient discharged Performed By: #### L 500.2500, L100.0100 ####[facility] [address] [place], [address] CBC W/Diff, Automatedon 08-0 6-2024 Absolute Neut Normal 2.0-7.7 [facility] Comment on above: Result Comment: Canc elled via OM: Order cancelled - Patient discharged Performed By: #### L 500.2500, L100.0100 ####[facility] [address] [place], [address] HCT Normal 37-47 [facility] Comment on above: Result Comment: Canc elled via OM: Order cancelled - Patient discharged Performed By: #### L 500.2500, L100.0100 ####[facility] [address] [place], [address] HGB Normal 12.0-15.0 [facility] Comment on above: Result Comment: Canc elled via OM: Order cancelled - Patient discharged Performed By: #### L 500.2500, L100.0100 ####[facility] [address] [place], [address] MCH Normal 27.0-32.0 [facility] Comment on above: Result Comment: Canc elled via OM: Order cancelled - Patient discharged Performed By: #### L 500.2500, L100.0100 ####[facility] [address] [place], [address] MCHC Normal 32-36 [facility] Comment on above: Result Comment: Canc elled via OM: Order cancelled - Patient discharged Performed By: #### L 500.2500, L100.0100 ####[facility] [address] [place], [address] MCV Normal 81-99 [facility] Comment on above: Result Comment: Canc elled via OM: Order cancelled - Patient discharged Performed By: #### L 500.2500, L100.0100 ####[facility] [address] [place], [address] NEUT% Normal 47-70 [facility] Comment on above: Result Comment: Canc elled via OM: Order cancelled - Patient discharged Performed By: #### L 500.2500, L100.0100 ####[facility] [address] [place], [address] PLT Normal 150-450 [facility] Comment on above: Result Comment: Canc elled via OM: Order cancelled - Patient discharged Performed By: #### L 500.2500, L100.0100 ####[facility] [address] [place], [address] RBC Normal 4.2-5.4 [facility] Comment on above: Result Comment: Canc elled via OM: Order cancelled - Patient discharged Performed By: #### L 500.2500, L100.0100 ####[facility] [address] [place], [address] RDW CV Normal 11.6-14.6 [facility] Comment on above: Result Comment: Canc elled via OM: Order cancelled - Patient discharged Performed By: #### L 500.2500, L100.0100 ####[facility] [address] [place], [address] RDW SD Normal 35.1-43.9 [facility] Comment on above: Result Comment: Canc elled via OM: Order cancelled - Patient discharged Performed By: #### L 500.2500, L100.0100 ####[facility] [address] [place], [address] WBC Normal 4.4-11.0 [facility] Comment on above: Result Comment: Canc elled via OM: Order cancelled - Patient discharged Performed By: #### L 500.2500, L100.0100 ####[facility] [address] [place], [address] Basic Metabolic Profile (BMP )on 11-02-2024 BUN Normal 4-19 [facility] Comment on above: Result Comment: Canc elled via OM: Order cancelled - Patient discharged Performed By: #### L 500.2500, L100.0100 ####[facility] [address] [place], [address] BUN/CRE Normal 10-20 [facility] Comment on above: Result Comment: Canc elled via OM: Order cancelled - Patient discharged Performed By: #### L 500.2500, L100.0100 ####[facility] [address] [place], [address] Calcium Normal 7.6-11.0 [facility] Comment on above: Result Comment: Canc elled via OM: Order cancelled - Patient discharged Performed By: #### L 500.2500, L100.0100 ####[facility] [address] [place], [address] CL Normal 98-108 [facility] Comment on above: Result Comment: Canc elled via OM: Order cancelled - Patient discharged Performed By: #### L 500.2500, L100.0100 ####[facility] [address] [place], [address] CO2 Normal 21.0-32.0 [facility] Comment on above: Result Comment: Canc elled via OM: Order cancelled - Patient discharged Performed By: #### L 500.2500, L100.0100 ####[facility] [address] [place], [address] CREAT,SERUM Normal 0.70-1.20 [facility] Comment on above: Result Comment: Canc elled via OM: Order cancelled - Patient discharged Performed By: #### L 500.2500, L100.0100 ####[facility] [address] [place], [address] eGFR Normal >60 [facility] Comment on above: Result Comment: Canc elled via OM: Order cancelled - Patient discharged Performed By: #### L 500.2500, L100.0100 ####[facility] [address] [place], [address] GAP Normal 5-15 [facility] Comment on above: Result Comment: Canc elled via OM: Order cancelled - Patient discharged Performed By: #### L 500.2500, L100.0100 ####[facility] [address] [place], [address] GLU Normal 70-99 [facility] Comment on above: Result Comment: Canc elled via OM: Order cancelled - Patient discharged Performed By: #### L 500.2500, L100.0100 ####[facility] [address] [place], [address] Potassium Normal 3.3-5.1 [facility] Comment on above: Result Comment: Canc elled via OM: Order cancelled - Patient discharged Performed By: #### L 500.2500, L100.0100 ####[facility] [address] [place], [address] Basic Metabolic Profile (BMP) Normal 133-145 [facility] Comment on above: Result Comment: Canc elled via OM: Order cancelled - Patient discharged Performed By: #### L 500.2500, L100.0100 ####[facility] [address] [place], [address] CBC W/Diff, Automatedon 07-3 0-2024 Absolute Neut Normal 2.0-7.7 [facility] Comment on above: Result Comment: Canc elled via OM: Order cancelled - Patient discharged Performed By: #### L 500.2500, L100.0100 ####[facility] [address] [place], [address] HCT Normal 37-47 [facility] Comment on above: Result Comment: Canc elled via OM: Order cancelled - Patient discharged Performed By: #### L 500.2500, L100.0100 ####[facility] [address] [place], [address] HGB Normal 12.0-15.0 [facility] Comment on above: Result Comment: Canc elled via OM: Order cancelled - Patient discharged Performed By: #### L 500.2500, L100.0100 ####[facility] [address] [place], [address] MCH Normal 27.0-32.0 [facility] Comment on above: Result Comment: Canc elled via OM: Order cancelled - Patient discharged Performed By: #### L 500.2500, L100.0100 ####[facility] [address] [place], [address] MCHC Normal 32-36 [facility] Comment on above: Result Comment: Canc elled via OM: Order cancelled - Patient discharged Performed By: #### L 500.2500, L100.0100 ####[facility] [address] [place], [address] MCV Normal 81-99 [facility] Comment on above: Result Comment: Canc elled via OM: Order cancelled - Patient discharged Performed By: #### L 500.2500, L100.0100 ####[facility] [address] [place], [address] NEUT% Normal 47-70 [facility] Comment on above: Result Comment: Canc elled via OM: Order cancelled - Patient discharged Performed By: #### L 500.2500, L100.0100 ####[facility] [address] [place], [address] PLT Normal 150-450 [facility] Comment on above: Result Comment: Canc elled via OM: Order cancelled - Patient discharged Performed By: #### L 500.2500, L100.0100 ####[facility] [address] [place], [address] RBC Normal 4.2-5.4 [facility] Comment on above: Result Comment: Canc elled via OM: Order cancelled - Patient discharged Performed By: #### L 500.2500, L100.0100 ####[facility] [address] [place], [address] RDW CV Normal 11.6-14.6 [facility] Comment on above: Result Comment: Canc elled via OM: Order cancelled - Patient discharged Performed By: #### L 500.2500, L100.0100 ####[facility] [address] [place], [address] RDW SD Normal 35.1-43.9 [facility] Comment on above: Result Comment: Canc elled via OM: Order cancelled - Patient discharged Performed By: #### L 500.2500, L100.0100 ####[facility] [address] [place] [place], [address] WBC Normal 4.4-11.0 [facility] Comment on above: Result Comment: Canc elled via OM: Order cancelled - Patient discharged Performed By: #### L 500.2500, L100.0100 ####[facility] [address] [place], [address] [facility] Tele[facility] ([facility]) JOHNMARI ([id number]) 1940 F Date Time Provider Department 10/27/24 LIZY CAPONE [facility] During your visit today, we recorded the following information about you: Olga Dillard RN 10/27/2024 9:01 AM Signed Kamille with [facility] calls to request orders for wound care to right lower leg. Patient has several wounds to right lower leg and will be going to the Wound Center or 10/31/2024. Kamille would like orders for all open wounds to be cleansed with soap and water and covered with gauze, abd pad, Kerlix, and secured with tape. Also requesting an order for an JEANCARLOS Wrap to the right leg. Also requesting for any wound that is deeper than 1 inch to do a wet to dry dressing. Kamille requesting verbal orders for wound care to be performed until patient is seen at Wound Center on Thursday10/31/2024. They plan to see patient sometime this morning so need orders as soon as possible. Please review and advise, KEVIN Banerjee Michael Virgil, DO 10/27/2024 9:14 AM Signed Staff, Please reach out to the C contact to verbally okay the patients recommended wound care needs Verbal order , yes!! Thanks , DO Hollis Wilson Cheryl, RN 10/27/2024 9:17 AM Signed Kamille with [facility] notified. Pamela Shafer RN Allergies As of Date: 10/27/2024 Noted Allergy Reaction BACTRIM (SULFAMETHOXAZOLE-TRIMETH*0 07/23/2016 4 - Hives Comments: Blisters: head to toe IBUPROFEN 11/08/2015 2 - Rash KEFZOL (CEFAZOLIN SODIUM) 08/09/2018 4 - Hives PEANUT 03/31/2023 10 - Anaphylaxis SULFA (SULFONAMIDE ANTIBIOTICS) 07/23/2016 4 - Hives 16 - Unknown Comments: Blisters: head to toe Date Reviewed: 10/24/2024 Reviewed by: Alex Lackey MA - Fully Assessed Reason for Visit: Orders [681] Prescriptions as of 10/27/2024 - ELIQUIS 2.5 mg tab(s) Take 2.5 mg by mouth two times a day. - melatonin 3 mg tablet Take 1 tablet by mouth at bedtime as needed for insomnia. - oxyCODONE-acetaminophen (PERCOCET) 5-325 mg tablet Take 1 tablet by mouth every 4 hours as needed for pain for up to 7 days. - sodium bicarbonate 650 mg tablet Take 1 tablet by mouth four times daily. - lidocaine (LIDODERM) 5 % Apply 1 patch as directed once daily. REMOVE AFTER 12 HOURS. - nystatin (MYCOSTATIN) powder Apply 1 application to affected area four times daily. - lacosamide (VIMPAT) 100 mg tab Take 1 tablet by mouth every 12 hours for 180 days. - gabapentin (NEURONTIN) 300 mg capsule Take 1 capsule by mouth three times a day for 180 days. Take one pill 3 times per day - calcium acetate,phosphat bind, (PHOSLO) 667 mg capsule Take 1 capsule by mouth three times a day. - Zinc Gluconate 50 mg tablet Take 1 tablet by mouth once daily. - multivitamin tablet Take 1 tablet by mouth once daily. - predniSONE (DELTASONE) 20 mg tablet Take 2 tablets by mouth once daily. - guaiFENesin (MUCINEX) 600 mg 12 hr tablet Take 1 tablet by mouth two times a day. - zolpidem (AMBIEN) 10 mg Take 1 tablet by mouth at bedtime as needed for up to 90 days. - benzonatate (TESSALON PERLE) 100 mg capsule Take 1 capsule by mouth three times a day as needed for cough for up to 12 doses. - atorvastatin (LIPITOR) 40 mg tablet Take 1 tablet by mouth once daily. - bisacodyl (DULCOLAX) 10 mg supp 1 suppository by RECTAL route once daily as needed for constipation. - carvedilol (COREG) 6.25 mg tablet Take 1 tablet by mouth every 12 hours. - cholecalciferol (VITAMIN D3) 1,000 unit tab tablet Take 2 tablets by mouth once daily. - ferrous sulfate 325 mg (65 mg iron) tablet Take 1 tablet by mouth once daily. - furosemide (LASIX) 40 mg tablet Take 1 tablet by mouth every other day. - levothyroxine (LEVOXYL) 125 mcg tablet Take [...] once daily. Meds Comments as of 10/27/2016: M (more content not included)... Normal [facility] Basic Metabolic Profile (BMP )on 10-26-2024 BUN Normal 4-19 [facility] Comment on above: Result Comment: Canc elled via OM: Order cancelled - Patient discharged Performed By: #### L 500.2500, L100.0100 ####[facility] [address] [place], [address] BUN/CRE Normal 10-20 [facility] Comment on above: Result Comment: Canc elled via OM: Order cancelled - Patient discharged Performed By: #### L 500.2500, L100.0100 ####[facility] [address] [place], [address] Calcium Normal 7.6-11.0 [facility] Comment on above: Result Comment: Canc elled via OM: Order cancelled - Patient discharged Performed By: #### L 500.2500, L100.0100 ####[facility] [address] [place], [address] CL Normal 98-108 [facility] Comment on above: Result Comment: Canc elled via OM: Order cancelled - Patient discharged Performed By: #### L 500.2500, L100.0100 ####[facility] [address] [place], [address] CO2 Normal 21.0-32.0 [facility] Comment on above: Result Comment: Canc elled via OM: Order cancelled - Patient discharged Performed By: #### L 500.2500, L100.0100 ####[facility] [address] [place], [address] CREAT,SERUM Normal 0.70-1.20 [facility] Comment on above: Result Comment: Canc elled via OM: Order cancelled - Patient discharged Performed By: #### L 500.2500, L100.0100 ####[facility] [address] [place], [address] eGFR Normal >60 [facility] Comment on above: Result Comment: Canc elled via OM: Order cancelled - Patient discharged Performed By: #### L 500.2500, L100.0100 ####[facility] [address] [place], [address] GAP Normal 5-15 [facility] Comment on above: Result Comment: Canc elled via OM: Order cancelled - Patient discharged Performed By: #### L 500.2500, L100.0100 ####[facility] [address] [place], [address] GLU Normal 70-99 [facility] Comment on above: Result Comment: Canc elled via OM: Order cancelled - Patient discharged Performed By: #### L 500.2500, L100.0100 ####[facility] [address] [place], [address] Potassium Normal 3.3-5.1 [facility] Comment on above: Result Comment: Canc elled via OM: Order cancelled - Patient discharged Performed By: #### L 500.2500, L100.0100 ####[facility] [address] [place], [address] Basic Metabolic Profile (BMP) Normal 133-145 [facility] Comment on above: Result Comment: Canc elled via OM: Order cancelled - Patient discharged Performed By: #### L 500.2500, L100.0100 ####[facility] [address] [place], [address] CBC W/Diff, Automatedon 07-2 Absolute Neut Normal 2.0-7.7 [facility] Comment on above: Result Comment: Canc elled via OM: Order cancelled - Patient discharged Performed By: #### L 500.2500, L100.0100 ####[facility] [address] [place], [address] HCT Normal 37-47 [facility] Comment on above: Result Comment: Canc elled via OM: Order cancelled - Patient discharged Performed By: #### L 500.2500, L100.0100 ####[facility] [address] [place], [address] HGB Normal 12.0-15.0 [facility] Comment on above: Result Comment: Canc elled via OM: Order cancelled - Patient discharged Performed By: #### L 500.2500, L100.0100 ####[facility] [address] [place], [address] MCH Normal 27.0-32.0 [facility] Comment on above: Result Comment: Canc elled via OM: Order cancelled - Patient discharged Performed By: #### L 500.2500, L100.0100 ####[facility] [address] [place], [address] MCHC Normal 32-36 [facility] Comment on above: Result Comment: Canc elled via OM: Order cancelled - Patient discharged Performed By: #### L 500.2500, L100.0100 ####[facility] [address] [place], [address] MCV Normal 81-99 [facility] Comment on above: Result Comment: Canc elled via OM: Order cancelled - Patient discharged Performed By: #### L 500.2500, L100.0100 ####[facility] [address] [place], [address] NEUT% Normal 47-70 [facility] Comment on above: Result Comment: Canc elled via OM: Order cancelled - Patient discharged Performed By: #### L 500.2500, L100.0100 ####[facility] [address] [place], [address] PLT Normal 150-450 [facility] Comment on above: Result Comment: Canc elled via OM: Order cancelled - Patient discharged Performed By: #### L 500.2500, L100.0100 ####[facility] [address] [place], [address] RBC Normal 4.2-5.4 [facility] Comment on above: Result Comment: Canc elled via OM: Order cancelled - Patient discharged Performed By: #### L 500.2500, L100.0100 ####[facility] [address] [place], [address] RDW CV Normal 11.6-14.6 [facility] Comment on above: Result Comment: Canc elled via OM: Order cancelled - Patient discharged Performed By: #### L 500.2500, L100.0100 ####[facility] [address] [place], [address] RDW SD Normal 35.1-43.9 [facility] Comment on above: Result Comment: Canc elled via OM: Order cancelled - Patient discharged Performed By: #### L 500.2500, L100.0100 ####[facility] [address] [place], [address] WBC Normal 4.4-11.0 [facility] Comment on above: Result Comment: Canc elled via OM: Order cancelled - Patient discharged Performed By: #### L 500.2500, L100.0100 ####[facility] [address] [place], [address] Emergency Department Summary on 10-26-2024 Emergency Department Summary Normal [facility] Cardiology Visit Reporton Cardiology Visit Report Normal [facility] CNOVon 10-24-2024 CNOV Office Visit (FAMPWS ) MARI LOPEZ ([id number]) 1940 F Date Time Provider Department 10/24/24 2:00 PM LIZY CAPONE During your visit today, we recorded the following information about you: Pulse Respiration Blood pressure Weight 117/minute 18/minute 93/63 120.7 kg Lizy Capone MD 10/24/2024 7:28 PM Signed Transitional Care Management TCM Eligibility Documentation The following information was gathered during patient outreach 10/21/2024 Date of Outreach: Outreach Attempt 1: Contact Made Date of Discharge 10/20/2024 Provider Documentation Mari Lopez is a 84 year old female here today for a follow up from recent hospitalization. I have reviewed the patient's hospital course including discharge summary, discharge medications, and follow up needs with the patient and any family members present at today's visit. HPI 7 Day TCM Pt was admitted to [facility] on 09/28/24, following a fall, for lower extremity pain, and was discharged on 10/04/24 to TCU with debility. She was sent back down to ER on 10/12/24 for chest pains. Discharged home 10/20/24 with diagnosis of chronic renal failure, stage 4. She was discharged home with her friend, Alex. Follows with Cardio, miter sawyer, urologist, going to wound center, neurologist, ortho. Going to wound center for wound on her leg. Had graft done. Still having significant pain at the donor site in her right proximal thigh. Using oxycodone 5 mg four times daily for this. Pt states she has had 3 UTI last year and is working on 3 UTI this year. She is asking if she can get a low dose antibiotic to take to help with that, asked about Macrobid. Advised ehre that this is contraindicated in chronic renal failure. Having increased swelling in her legs, gained 30 pounds over the last couple of weeks, has Cardiology follow up tomorrow breathing has been stable; gets Shortness of Breath with activity, O2 sats at home > 90%. -Pt discharged from [facility] on 10/20/24. -Admitted for: Chronic renal failure, stage 4 Below copied from [employer]: History of Present Illness Chief Complaint: Chest Pain Detail of Chief Complaint: Nausea all day with vomiting x 2 and palpitations Informant: patient Onset/Context/Timing Onset: Today Context: Sudden Onset Timing: Continuous (The nausea is continuous. The palpitations is intermittent) Quality: The not feel well and feels sick to her stomach and HPI narrative Location: GI and cardiac Current Severity: Mild Worsened by: Patient states her nausea is worse when she eats and she has vomited twice Relieved by: Apparently nothing Associated Symptoms Associated Symptoms: No other symptoms. Narrative Narrative: Patient is a 84-year-old woman. She is presently in the TCU floor. She was sent down because of nausea this been continuous since this morning. She has had 2 episodes of vomiting. Emesis without blood or coffee-ground's. She denies abdominal pain. She still feels nauseous. She has had no diarrhea or constipation. She is status post surgery several years ago. She denies chest pain, tightness, heaviness or pressure. She stated twice during the history and physical that she had palpitations, which she described as it is jumping out of my chest again. Patient denies shortness of breath. Patient does complain of chronic back pain that is unchanged from baseline. She is presently in the TCU for after hospitalization for cellulitis of right leg and skin graft. She inform me that Dr. 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 She is on an anticoagulant. Patient did have an EKG performed in the TCU unit. The one that was ordered here will be canceled. She was in A-fib with RVR. Rate is 131. She has a left bundle branch block. She was durations 144 ms. QRS duration 354 ms. There is no acute ischemic changes noted. Discharge Diagnosis (1) Chronic renal failure (CRF), stage 4 (severe): Status: Acute Code(s): N18.4 - Chronic kidney disease, stage 4 (severe) Plan 84 year old female with below past medical history hospitalized for encephalopathy 2/2 acute kidney injury, hyperkalemia, E. Coli UTI, metabolic acidosis, tremor, admitted to TCU with debility, here for rehabilitation, strengthening, prior to discharge home with roommate. Debility - PT/OT. Pain - Tylenol 1000mg tid, Oxycodone 5mg q4 prn pain (1-10), Lidoderm 1 patch td daily. Bowel - Miralax 17gm daily, senna/colace 2 tablets bid, Dulcolax 10mg pr daily prn. Adult immunization - Administer pneumonia vaccine, covid vaccine, flu vaccine as appropriate. DVT prophylaxis - Eliquis. Hyperlipidemia - Atorvastatin 40mg qhs. Cough - Mucinex 600mg bid, Tessalon perles 100mg tid. CKD stage 4 - Dr. Albrecht. Hyperphosphatemia - Phoslo 667mg tidcm. Metabolic acidosis - Sodium bicarb 650mg 4x/day. Atrial fibrillation - Coreg 6.25mg bidcm, Eliquis 2.5mg bid. Cor (more content not included)... [facility] Telephone (FAMPWS) JOHNMARI ([id number]) 1940 F Date Time Provider Department 10/21/24 LIZY CAPONE During your visit today, we recorded the following information about you: Lora Najera RN 10/21/2024 12:51 PM Signed Lora from [facility] calls and states that patient was restarted for long-term services and patient will be seen 1 time a week times 4 weeks. Patient was just recently hospitalized and there are a couple of medications that were not on patient discharge paperwork that patient still has in her home. Lisinopril-hydrochlorothiaz amaya 10-12.5 mg Lacosamide 100 mg Also patient was started on Gemtesa [address] Hernandez for overactive bladder. Patient is complaining of burning with urination. Patient is scheduled to see Dr. Capone on Thursday10/24/2024. KEVIN Traore Mark D, MD 10/24/2024 3:28 PM Signed Noted Seen in office today Lizy Capone MD Allergies As of Date: 10/21/2024 Noted Allergy Reaction BACTRIM (SULFAMETHOXAZOLE-TRIMETH*0 07/23/2016 4 - Hives Comments: Blisters: head to toe IBUPROFEN 11/08/2015 2 - Rash KEFZOL (CEFAZOLIN SODIUM) 08/09/2018 4 - Hives PEANUT 03/31/2023 10 - Anaphylaxis SULFA (SULFONAMIDE ANTIBIOTICS) 07/23/2016 4 - Hives 16 - Unknown Comments: Blisters: head to toe Date Reviewed: 09/22/2024 Reviewed by: Alex Lackey MA - Fully Assessed Reason for Visit: Patient Update [1234] Prescriptions as of 10/24/2024 - ELIQUIS 2.5 mg tab(s) Take 2.5 mg by mouth two times a day. - melatonin 3 mg tablet Take 1 tablet by mouth at bedtime as needed for insomnia. - oxyCODONE-acetaminophen (PERCOCET) 5-325 mg tablet Take 1 tablet by mouth every 4 hours as needed for pain for up to 7 days. - sodium bicarbonate 650 mg tablet Take 1 tablet by mouth four times daily. - lidocaine (LIDODERM) 5 % Apply 1 patch as directed once daily. REMOVE AFTER 12 HOURS. - nystatin (MYCOSTATIN) powder Apply 1 application to affected area four times daily. - lacosamide (VIMPAT) 100 mg tab Take 1 tablet by mouth every 12 hours for 180 days. - gabapentin (NEURONTIN) 300 mg capsule Take 1 capsule by mouth three times a day for 180 days. Take one pill 3 times per day - calcium acetate,phosphat bind, (PHOSLO) 667 mg capsule Take 1 capsule by mouth three times a day. - Zinc Gluconate 50 mg tablet Take 1 tablet by mouth once daily. - multivitamin tablet Take 1 tablet by mouth once daily. - predniSONE (DELTASONE) 20 mg tablet Take 2 tablets by mouth once daily. - guaiFENesin (MUCINEX) 600 mg 12 hr tablet Take 1 tablet by mouth two times a day. - zolpidem (AMBIEN) 10 mg Take 1 tablet by mouth at bedtime as needed for up to 90 days. - benzonatate (TESSALON PERLE) 100 mg capsule Take 1 capsule by mouth three times a day as needed for cough for up to 12 doses. - atorvastatin (LIPITOR) 40 mg tablet Take 1 tablet by mouth once daily. - bisacodyl (DULCOLAX) 10 mg supp 1 suppository by RECTAL route once daily as needed for constipation. - carvedilol (COREG) 6.25 mg tablet Take 1 tablet by mouth every 12 hours. - cholecalciferol (VITAMIN D3) 1,000 unit tab tablet Take 2 tablets by mouth once daily. - ferrous sulfate 325 mg (65 mg iron) tablet Take 1 tablet by mouth once daily. - furosemide (LASIX) 40 mg tablet Take 1 tablet by mouth every other day. - levothyroxine (LEVOXYL) 125 mcg tablet Take [...] Glucosamine-chondroitin, Fish-Oil Problem List As Of Date 10/21/2024 Noted Resolved Class 3 severe obesity with body mass index (BM*06/28/2003 BENIGN HYPERTENSION(aka HTN) [I10] 07/21/2003 ASTHMA UNSPECIFIED [J45.909] 07/21/2003 OTHER UNSPEC SLEEP APNEA(aka APNEA) [G47.30] 07/21/2003 Primary osteoarthritis of (more content not included)... Normal [facility] 10-20-2024 [facility] Telephone ([facility] MARI LOPEZ ([id number]) 1940 F Date Time Provider Department 10/20/24 LIZY CAPONE [facility] During your visit today, we recorded the following information about you: Analia Gracia RN 10/20/2024 12:14 PM Signed [facility] called in and reports Pt will be discharged form TCU tomorrow with SN/PT/OT/ST. Pt was admitted for encephalopathy, Chronic Renal Disease, and R lower extremity and thigh wound She is asking if provider will follow. Please call and advise. KEVIN Ozuna Mark D, MD 10/20/2024 2:09 PM Signed I will follow for [facility] MD Samia Masters Amanda, RN 10/20/2024 2:18 PM Signed Natalia [facility] KAROLINE called and is notified of providers message. She voices understanding. Analia Gracia RN Allergies As of Date: 10/20/2024 Noted Allergy Reaction BACTRIM (SULFAMETHOXAZOLE-TRIMETH*0 07/23/2016 4 - Hives Comments: Blisters: head to toe IBUPROFEN 11/08/2015 2 - Rash KEFZOL (CEFAZOLIN SODIUM) 08/09/2018 4 - Hives PEANUT 03/31/2023 10 - Anaphylaxis SULFA (SULFONAMIDE ANTIBIOTICS) 07/23/2016 4 - Hives 16 - Unknown Comments: Blisters: head to toe Date Reviewed: 09/22/2024 Reviewed by: Alex Lackey MA - Fully Assessed Reason for Visit: Follow [Other] Prescriptions as of 10/20/2024 - gabapentin (NEURONTIN) 300 mg capsule Take 1 capsule by mouth three times a day for 180 days. Take one pill 3 times per day - calcium acetate,phosphat bind, (PHOSLO) 667 mg capsule Take 1 capsule by mouth three times a day. - Zinc Gluconate 50 mg tablet Take 1 tablet by mouth once daily. - multivitamin tablet Take 1 tablet by mouth once daily. - predniSONE (DELTASONE) 20 mg tablet Take 2 tablets by mouth once daily. - guaiFENesin (MUCINEX) 600 mg 12 hr tablet Take 1 tablet by mouth two times a day. - zolpidem (AMBIEN) 10 mg Take 1 tablet by mouth at bedtime as needed for up to 90 days. - benzonatate (TESSALON PERLE) 100 mg capsule Take 1 capsule by mouth three times a day as needed for cough for up to 12 doses. - atorvastatin (LIPITOR) 40 mg tablet Take 1 tablet by mouth once daily. - bisacodyl (DULCOLAX) 10 mg supp 1 suppository by RECTAL route once daily as needed for constipation. - carvedilol (COREG) 6.25 mg tablet Take [...] Glucosamine-chondroitin, Fish-Oil Problem List As Of Date 10/20/2024 Noted Resolved Class 3 severe obesity with body mass index (BM*06/28/2003 BENIGN HYPERTENSION(aka HTN) [I10] 07/21/2003 ASTHMA UNSPECIFIED [J45.909] 07/21/2003 OTHER UNSPEC SLEEP APNEA(aka APNEA) [G47.30] 07/21/2003 Primary osteoarthritis of both knees [M17.0] 07/21/2003 THROMBOPHLEBITIS NOS(aka DVT) [I80.9] 07/21/2003 08/21/2009 PULMON EMBOLISM/INFARCT(aka EMBOLISM) [415.1] 07/21/2003 08/21/2009 VENTRAL HERNIA NEC [K43.9] 03/26/2004 07/01/2007 ASA CLASS III [1003] 05/07/2005 07/12/2021 INJURY TRUNK SITE NEC [[id number]] 01/16/2006 07/01/2007 Anemia in chronic kidney disease (CKD) [N18.9, *03/17/2006 Non-Healing Surgical Wound [T81.89XA] 03/16/2007 05/18/2009 FEMALE STRESS INCONTINENCE [N39.3] 07/12/2008 MASS IN SUBCUTANEOUS TISSUE [R22.9] 07/21/2008 08/18/2018 Pain in Joint, Lower Leg [M25.569] 11/14/2008 08/21/2009 Rotator cuff syndrome [M75.100] 02/19/2011 Insomnia [G47.00] 07/30/2011 Screening for colon cancer [Z12.11] 11/24/2016 04 (more content not included)... Normal [facility] Absolute lymphocyte countOrd ered By: Gautam Hardy on 10-19-2024 Lymphocytes Auto (Unsp spec) [#/Vol] 1.84 10*3/uL 0.83-4.51 [facility] Anion gap in Serum or Plasma Ordered By: Gautam Hardy on 10-19-2024 Anion gap [Moles/Vol] 11 mmol/L 5-15 [facility] Automated lymphocyte count a s percentage of total leukocytesOrdered By: Gautam Hardy on 10-19-2024 Lymphocytes/100 WBC Auto (Unsp spec) 39.9 % - [facility] BUN/creatinine ratioOrdered By: Gautam Hardy on 10-19-2024 Urea nitrogen/Creatinine [Mass ratio] 19.7 mg/mg 10- [facility] Basic Metabolic Profile (BMP )on 10-19-2024 BUN/CRE 19.7 RATIO Normal - [facility] Comment on above: Performed By: #### L 100.0100, L500.2500 ####[facility] [address] [place], [address] Calcium [Mass/Vol] 8.3 mg/dL Normal 7.6-11.0 [facility] Comment on above: Performed By: #### L 100.0100, L500.2500 ####[facility] [address] [place], [address] Chloride [Moles/Vol] 110 mmol/L High 98-108 [facility] Comment on above: Performed By: #### L 100.0100, L500.2500 ####[facility] [address] [place], [address] CO2 [Moles/Vol] 22.5 mmol/L Normal 21.0-32.0 [facility] Comment on above: Performed By: #### L 100.0100, L500.2500 ####[facility] [address] [place], [address] Creatinine [Mass/Vol] 2.67 mg/dL High 0.70-1.20 [facility] Comment on above: Performed By: #### L 100.0100, L500.2500 ####[facility] [address] [place], [address] ECRCL 20.12 ml/min Low 50-250 [facility] Comment on above: Performed By: #### L 100.0100, L500.2500 ####[facility] [address] [place], [address] GAP 11 Normal 5-15 [facility] Comment on above: Performed By: #### L 100.0100, L500.2500 ####[facility] [address] [place], [address] GFR/1.73 sq M.predicted among non-blacks MDRD (S/P/Bld) [Vol rate/Area] 17 mL/min/{1.73_m2} Low >60 [facility] Comment on above: Result Comment: mL/m in/1.73m2 CKD-EPI Creatinine Equation (2020) Performed By: #### L 100.0100, L500.2500 ####[facility] [address] [place], [address] Glucose [Mass/Vol] 80 mg/dL Normal 70-99 [facility] Comment on above: Performed By: #### L 100.0100, L500.2500 ####[facility] [address] [place], [address] Potassium [Moles/Vol] 4.3 mmol/L Normal 3.3-5.1 [facility] Comment on above: Performed By: #### L 100.0100, L500.2500 ####[facility] [address] [place], [address] Sodium [Moles/Vol] 144 mmol/L Normal 133-145 [facility] Comment on above: Performed By: #### L 100.0100, L500.2500 ####[facility] [address] [place], [address] Urea nitrogen [Mass/Vol] 53 mg/dL High 4-19 [facility] Comment on above: Performed By: #### L 100.0100, L500.2500 ####[facility] [address] [place], [address] Basophil percentageOrdered B y: Gautam Hardy on 10-19-2024 Basophils/100 WBC (Bld) 0.9 % 0-1 [facility] [facility] W/Diff, Automatedon 10-04 Absolute Lymph 1.84 X10 3/uL Normal 0.83-4.51 [facility] Comment on above: Performed By: #### L 100.0100, L500.2500 ####[facility] [address] [place], [address] Absolute Neut 2.0 X10 3/uL Normal 2.0-7.7 [facility] Comment on above: Performed By: #### L 100.0100, L500.2500 ####[facility] [address] [place], [address] Basophils/100 WBC (Bld) 0.9 % Normal 0-1 [facility] Comment on above: Performed By: #### L 100.0100, L500.2500 ####[facility] [address] [place], [address] Eosinophils/100 WBC (Bld) 7.8 % High 0-5 [facility] Comment on above: Performed By: #### L 100.0100, L500.2500 ####[facility] [address] [place], [address] Erythrocyte distribution width (RBC) [Ratio] 14.1 % Normal 11.6-14.6 [facility] Comment on above: Performed By: #### L 100.0100, L500.2500 ####[facility] [address] [place], [address] Hematocrit (Bld) [Volume fraction] 28.1 % Low 37-47 [facility] Comment on above: Performed By: #### L 100.0100, L500.2500 ####[facility] [address] [place], [address] Hemoglobin (Bld) [Mass/Vol] 8.6 g/dL Low 12.0-15.0 [facility] Comment on above: Performed By: #### L 100.0100, L500.2500 ####[facility] [address] [place], [address] IG% 0.200 Normal 0.0-0.9 [facility] Comment on above: Result Comment: IG% - Immature Granulocytes (promyelocytes, myelocytes andmetamyelocytes) > 1% indicates that a LEFT SHIFT is Present. Performed By: #### L 100.0100, L500.2500 ####[facility] [address] [place], [address] Lymphocytes/100 WBC (Bld) 39.9 % Normal 19-41 [facility] Comment on above: Performed By: #### L 100.0100, L500.2500 ####[facility] [address] [place], [address] MCH (RBC) [Entitic mass] 32.2 pg High 27.0-32.0 [facility] Comment on above: Performed By: #### L 100.0100, L500.2500 ####[facility] [address] [place], [address] MCHC (RBC) [Mass/Vol] 30.6 g/dL Low 32-36 [facility] Comment on above: Performed By: #### L 100.0100, L500.2500 ####[facility] [address] [place], [address] MCV (RBC) [Entitic vol] 105.2 fL High 81-99 [facility] Comment on above: Performed By: #### L 100.0100, L500.2500 ####[facility] [address] [place], [address] Monocytes/100 WBC (Bld) 7.8 % Normal 0-10 [facility] Comment on above: Performed By: #### L 100.0100, L500.2500 ####[facility] [address] [place], [address] Neutrophils/100 WBC (Bld) 43.4 % Low 47-70 [facility] Comment on above: Performed By: #### L 100.0100, L500.2500 ####[facility] [address] [place], [address] Nucleated RBC (Bld) [#/Vol] 0 10*3/uL Normal 0-5 [facility] Comment on above: Performed By: #### L 100.0100, L500.2500 ####[facility] [address] [place], [address] Platelet mean volume (Bld) [Entitic vol] 13.2 fL High 6.2-12.0 [facility] Comment on above: Performed By: #### L 100.0100, L500.2500 ####[facility] [address] [place], [address] Platelets (Bld) [#/Vol] 185 10*3/uL Normal 150-450 [facility] Comment on above: Performed By: #### L 100.0100, L500.2500 ####[facility] [address] [place], [address] RBC (Bld) [#/Vol] 2.67 10*6/uL Low 4.2-5.4 [facility] Comment on above: Performed By: #### L 100.0100, L500.2500 ####[facility] [address] [place], [address] RDW SD 53.2 fl High 35.1-43.9 [facility] Comment on above: Performed By: #### L 100.0100, L500.2500 ####[facility] [address] [place], [address] WBC (Bld) [#/Vol] 4.6 10*3/uL Normal 4.4-11.0 [facility] Comment on above: Performed By: #### L 100.0100, L500.2500 ####[facility] [address] [place], [address] Carbon dioxide, total [Moles /volume] in Central venous bloodOrdered By: Gautam Hardy on 10-19-2024 CO2 [Moles/Vol] 22.5 mmol/L 21.0-32.0 [facility] Chloride assayOrdered By: Fernando Hardy on 10-19-2024 Chloride [Moles/Vol] 110 mmol/L High 98-108 [facility] Eosinophil percentageOrdered By: Gautam Hardy on 10-19-2024 Eosinophils/100 WBC (Bld) 7.8 % High 0-5 [facility] Erythrocyte distribution wid th ratioOrdered By: Gautam Hardy on 10-19-2024 Erythrocyte distribution width (RBC) [Ratio] 14.1 % 11.6-14.6 [facility] Erythrocyte distribution wid th standard deviationOrdered By: Gautam Hardy on 10-19-2024 Erythrocyte distribution width (RBC) [Ratio] 53.2 fl High 35.1-43.9 [facility] Glomerular filtration rate ( GFR) estimation/1.73 sq m using serum, plasma, or whole bOrdered By: Gautam Hardy on 10-19-2024 GFR/1.73 sq M.predicted among non-blacks MDRD (S/P/Bld) [Vol rate/Area] 17 mL/min/{1.73_m2} Low >60 [facility] Hematocrit Auto (Bld) [Volum e fraction]Ordered By: Gautam Hardy on 10-19-2024 Hematocrit (Bld) [Volume fraction] 28.1 % Low 37-47 [facility] Hemoglobin measurementOrdere d By: Gautam Hardy 10-19-2024 Hemoglobin (Bld) [Mass/Vol] 8.6 g/dL Low 12.0-15.0 [facility] Immature granulocytes/100 WB C Auto (Bld)Ordered By: Gautam Hardy on 10-19-2024 Immature granulocytes/100 WBC (Bld) 0.200 % 0.0-0.9 [facility] MCV (mean corpuscular volume ) determinationOrdered By: Gautam Hardy on 10-19-2024 MCV (RBC) [Entitic vol] 105.2 fL High 81-99 [facility] Mean corpuscular hemoglobin (MCH) determinationOrdered By: Gautam Hardy on 10-19-2024 MCH (RBC) [Entitic mass] 32.2 pg High 27.0-32.0 [facility] Monocyte percentageOrdered B y: Gautam Hardy on 10-19-2024 Monocytes/100 WBC (Bld) 7.8 % 0-10 [facility] Neutrophil percentageOrdered By: Gautam Hardy 10-19-2024 Neutrophils/100 WBC (Bld) 43.4 % Low 47-70 [facility] Platelet countOrdered By: Fernando Hardy on 10-19-2024 Platelets (Bld) [#/Vol] 185 10*3/uL 150-450 [facility] Potassium measurement (mass/ volume)Ordered By: Gautam Hardy on 10-19-2024 Potassium (Unsp spec) [Mass/Vol] 4.3 mmol/L 3.3-5.1 [facility] RBC Auto (Bld) [#/Vol]Ordere d By: Gautam Hardy on 10-19-2024 RBC (Bld) [#/Vol] 2.67 10*6/uL Low 4.2-5.4 [facility] Serum creatinine measurement (mass/volume)Ordered By: Gautam Hardy 10-19-2024 Creatinine [Mass/Vol] 2.67 mg/dL High 0.70-1.20 [facility] Serum glucose measurement (m ass/volume)Ordered By: Gautam Hardy on 10-19-2024 Glucose [Mass/Vol] 80 mg/dL 70-99 [facility] Serum or plasma calcium farheen urement (mass/volume)Ordered By: Gautam Hardy 10-19-2024 Calcium [Mass/Vol] 8.3 mg/dL 7.6-11.0 [facility] Serum or plasma urea nitroge n measurement (mass/volume)Ordered By: Gautam Hardy on 10-19-2024 Urea nitrogen [Mass/Vol] 53 mg/dL High 4-19 [facility] Sodium levelOrdered By: Gautam Hardy on 10-19-2024 Sodium [Moles/Vol] 144 mmol/L 133-145 [facility] White blood cell (WBC) count Ordered By: Gautam Hardy on 10-19-2024 WBC (Bld) [#/Vol] 4.6 10*3/uL 4.4-11.0 [facility] Consultation - Nephrologyon 10-14-2024 Consultation - Nephrology Normal [facility] EGD Reporton 10-14-2024 EGD Report Normal [facility] MR/POSTOP.ANEon 10-14-2024 MR/POSTOP.ANE Normal [facility] MR/HJCFXLFO9uy 10-14-2024 MR/POSTOPAN2 Normal [facility] HH, Hemoglobin AND Hematocri ton 10-13-2024 Hematocrit (Bld) [Volume fraction] 28.5 % Low 37-47 [facility] Comment on above: Performed By: #### L 100.0600 ####[facility] [address] [place], [place], [phone] Hemoglobin (Bld) [Mass/Vol] 8.3 g/dL Low 12.0-15.0 [facility] Comment on above: Performed By: #### L 100.0600 ####[facility] [address] [place], [place], [id number] Hematocrit Auto (Bld) [Volum e fraction]Ordered By: Gautam Hardy on 10-13-2024 Hematocrit (Bld) [Volume fraction] 28.5 % Low [address] Hemoglobin measurementOrdere d By: Gautam Hardy on 10-13-2024 Hemoglobin (Bld) [Mass/Vol] 8.3 g/dL Low 12.0-15.0 [facility] Stool Occult Blood iFOBon STOB Positive Normal [facility] Comment on above: Performed By: #### M 100.7900 ####[facility] [address] [place], [place], [id number] Stool gastrointestinal hemog lobin detection by immunologic methodOrdered By: Gautam Antony on 10-13-2024 Lower GI hemoglobin IA Ql (Stl) Positive Abnormal [facility] Absolute lymphocyte countOrd ered By: Alexis Friend on 10-12-2024 Lymphocytes Auto (Unsp spec) [#/Vol] 1.25 10*3/uL 0.83-4.51 [facility] Absolute lymphocyte countOrd ered By: Gautam Hardy on 10-12-2024 Lymphocytes Auto (Unsp spec) [#/Vol] 1.62 10*3/uL 0.83-4.51 [facility] Anion gap in Serum or Plasma Ordered By: Alexis Friend on 10-12-2024 Anion gap [Moles/Vol] 12 mmol/L 08-18 [facility] Anion gap in Serum or Plasma Ordered By: Gautam Hardy on 10-12-2024 Anion gap [Moles/Vol] 12 mmol/L 08-18 [facility] Automated lymphocyte count a s percentage of total leukocytesOrdered By: Alexis Friend on 10-12-2024 Lymphocytes/100 WBC Auto (Unsp spec) 19.0 % [facility] Automated lymphocyte count a s percentage of total leukocytesOrdered By: Gautam Hardy on 10-12-2024 Lymphocytes/100 WBC Auto (Unsp spec) 37.9 % [facility] BUN/creatinine ratioOrdered By: Alexis Friend on 10-12-2024 Urea nitrogen/Creatinine [Mass ratio] 23.9 mg/mg High 01-23 [facility] BUN/creatinine ratioOrdered By: Gautam Hardy on 10-12-2024 Urea nitrogen/Creatinine [Mass ratio] 25.7 mg/mg High 01-23 [facility] Basic Metabolic Profile (BMP )on 10-12-2024 BUN/CRE 25.7 RATIO [facility] 01-23 [facility] Comment on above: Performed By: #### L 500.2500, L100.0100 ####[facility] [address] [place] [place], [address] Calcium [Mass/Vol] 8.0 mg/dL Normal 7.6-11.0 [facility] Comment on above: Performed By: #### L 500.2500, L100.0100 ####[facility] [address] [place], [address] Chloride [Moles/Vol] 110 mmol/L High 98-108 [facility] Comment on above: Performed By: #### L 500.2500, L100.0100 ####[facility] [address] [place], [address] CO2 [Moles/Vol] 21.9 mmol/L Normal 21.0-32.0 [facility] Comment on above: Performed By: #### L 500.2500, L100.0100 ####[facility] [address] [place], [address] Creatinine [Mass/Vol] 2.88 mg/dL High 0.70-1.20 [facility] Comment on above: Performed By: #### L 500.2500, L100.0100 ####[facility] [address] [place], [address] ECRCL 18.44 ml/min Low 50-250 [facility] Comment on above: Performed By: #### L 500.2500, L100.0100 ####[facility] [address] [place], [address] GAP 12 Normal 5-15 [facility] Comment on above: Performed By: #### L 500.2500, L100.0100 ####[facility] [address] [place], [address] GFR/1.73 sq M.predicted among non-blacks MDRD (S/P/Bld) [Vol rate/Area] 16 mL/min/{1.73_m2} Low >60 [facility] Comment on above: Result Comment: mL/m in/1.73m2 CKD-EPI Creatinine Equation (2020) Performed By: #### L 500.2500, L100.0100 ####[facility] [address] [place], [address] Glucose [Mass/Vol] 84 mg/dL Normal 70-99 [facility] Comment on above: Performed By: #### L 500.2500, L100.0100 ####[facility] [address] [place], [address] Potassium [Moles/Vol] 4.3 mmol/L Normal 3.3-5.1 [facility] Comment on above: Performed By: #### L 500.2500, L100.0100 ####[facility] [address] [place], [address] Sodium [Moles/Vol] 144 mmol/L Normal 133-145 [facility] Comment on above: Performed By: #### L 500.2500, L100.0100 ####[facility] [address] [place], [address] Urea nitrogen [Mass/Vol] 74 mg/dL High 4-19 [facility] Comment on above: Performed By: #### L 500.2500, L100.0100 ####[facility] [address] [place], [address] Basophil percentageOrdered B y: Alexis Friend on 10-12-2024 Basophils/100 WBC (Bld) 0.5 % 0-1 [facility] Basophil percentageOrdered B y: Gautam Antony on 10-12-2024 Basophils/100 WBC (Bld) 0.9 % 0-1 [facility] Bilirubin, totalOrdered By: Alexis Kingo on 10-12-2024 Bilirubin [Mass/Vol] 0.23 mg/dL 0.00-1.30 [facility] CBC W/Diff, Automatedon Absolute Lymph 1.25 X10 3/uL Normal 0.83-4.51 [facility] Comment on above: Performed By: #### L 100.0100, L500.4050 ####[facility] [address] [place], [address] Absolute Neut 4.6 X10 3/uL Normal 2.0-7.7 [facility] Comment on above: Performed By: #### L 100.0100, L500.4050 ####[facility] [address] [place], [address] Basophils/100 WBC (Bld) 0.5 % Normal 0-1 [facility] Comment on above: Performed By: #### L 100.0100, L500.4050 ####[facility] [address] [place], [address] Eosinophils/100 WBC (Bld) 5.2 % High 0-5 [facility] Comment on above: Performed By: #### L 100.0100, L500.4050 ####[facility] [address] [place], [address] Erythrocyte distribution width (RBC) [Ratio] 14.3 % Normal 11.6-14.6 [facility] Comment on above: Performed By: #### L 100.0100, L500.4050 ####[facility] [address] [place], [address] Hematocrit (Bld) [Volume fraction] 31.0 % Low 37-47 [facility] Comment on above: Performed By: #### L 100.0100, L500.4050 ####[facility] [address] [place], [address] Hemoglobin (Bld) [Mass/Vol] 9.1 g/dL Low 12.0-15.0 [facility] Comment on above: Performed By: #### L 100.0100, L500.4050 ####[facility] [address] [place], [address] IG% 0.800 Normal 0.0-0.9 [facility] Comment on above: Result Comment: IG% - Immature Granulocytes (promyelocytes, myelocytes andmetamyelocytes) > 1% indicates that a LEFT SHIFT is Present. Performed By: #### L 100.0100, L500.4050 ####[facility] [address] [place], [address] Lymphocytes/100 WBC (Bld) 19.0 % Normal 19-41 [facility] Comment on above: Performed By: #### L 100.0100, L500.4050 ####[facility] [address] [place], [address] MCH (RBC) [Entitic mass] 31.9 pg Normal 27.0-32.0 [facility] Comment on above: Performed By: #### L 100.0100, L500.4050 ####[facility] [address] [place], [address] MCHC (RBC) [Mass/Vol] 29.4 g/dL Low 32-36 [facility] Comment on above: Performed By: #### L 100.0100, L500.4050 ####[facility] [address] [place], [address] MCV (RBC) [Entitic vol] 108.8 fL High 81-99 [facility] Comment on above: Performed By: #### L 100.0100, L500.4050 ####[facility] [address] [place], [address] Monocytes/100 WBC (Bld) 5.3 % Normal 0-10 [facility] Comment on above: Performed By: #### L 100.0100, L500.4050 ####[facility] [address] [place], [address] Neutrophils/100 WBC (Bld) 69.2 % Normal 47-70 [facility] Comment on above: Performed By: #### L 100.0100, L500.4050 ####[facility] [address] [place], [address] Nucleated RBC (Bld) [#/Vol] 0 10*3/uL Normal 0-5 [facility] Comment on above: Performed By: #### L 100.0100, L500.4050 ####[facility] [address] [place], [address] Platelet mean volume (Bld) [Entitic vol] 13.4 fL High 6.2-12.0 [facility] Comment on above: Performed By: #### L 100.0100, L500.4050 ####[facility] [address] [place], [address] Platelets (Bld) [#/Vol] 183 10*3/uL Normal 150-450 [facility] Comment on above: Performed By: #### L 100.0100, L500.4050 ####[facility] [address] [place], [address] RBC (Bld) [#/Vol] 2.85 10*6/uL Low 4.2-5.4 [facility] Comment on above: Performed By: #### L 100.0100, L500.4050 ####[facility] [address] [place], [address] RDW SD 57.7 fl High 35.1-43.9 [facility] Comment on above: Performed By: #### L 100.0100, L500.4050 ####[facility] [address] [place], [address] WBC (Bld) [#/Vol] 6.6 10*3/uL Normal 4.4-11.0 [facility] Comment on above: Performed By: #### L 100.0100, L500.4050 ####[facility] [address] [place], [address] Absolute Lymph 1.62 X10 3/uL Normal 0.83-4.51 [facility] Comment on above: Performed By: #### L 500.2500, L100.0100 ####[facility] [address] [place], [address] Absolute Neut 2.0 X10 3/uL Normal 2.0-7.7 [facility] Comment on above: Performed By: #### L 500.2500, L100.0100 ####[facility] [address] [place], [address] Basophils/100 WBC (Bld) 0.9 % Normal 0-1 [facility] Comment on above: Performed By: #### L 500.2500, L100.0100 ####[facility] [address] [place], [address] Eosinophils/100 WBC (Bld) 7.7 % High 0-5 [facility] Comment on above: Performed By: #### L 500.2500, L100.0100 ####[facility] [address] [place], [address] Erythrocyte distribution width (RBC) [Ratio] 14.2 % Normal 11.6-14.6 [facility] Comment on above: Performed By: #### L 500.2500, L100.0100 ####[facility] [address] [place], [address] Hematocrit (Bld) [Volume fraction] 26.9 % Low 37-47 [facility] Comment on above: Performed By: #### L 500.2500, L100.0100 ####[facility] [address] [place], [address] Hemoglobin (Bld) [Mass/Vol] 7.9 g/dL Low 12.0-15.0 [facility] Comment on above: Performed By: #### L 500.2500, L100.0100 ####[facility] [address] [place], [address] IG% 0.200 Normal 0.0-0.9 [facility] Comment on above: Result Comment: IG% - Immature Granulocytes (promyelocytes, myelocytes andmetamyelocytes) > 1% indicates that a LEFT SHIFT is Present. Performed By: #### L 500.2500, L100.0100 ####[facility] [address] [place], [address] Lymphocytes/100 WBC (Bld) 37.9 % Normal 19-41 [facility] Comment on above: Performed By: #### L 500.2500, L100.0100 ####[facility] [address] [place], [address] MCH (RBC) [Entitic mass] 32.0 pg Normal 27.0-32.0 [facility] Comment on above: Performed By: #### L 500.2500, L100.0100 ####[facility] [address] [place], [address] MCHC (RBC) [Mass/Vol] 29.4 g/dL Low 32-36 [facility] Comment on above: Performed By: #### L 500.2500, L100.0100 ####[facility] [address] [place], [address] MCV (RBC) [Entitic vol] 108.9 fL High 81-99 [facility] Comment on above: Performed By: #### L 500.2500, L100.0100 ####[facility] [address] [place], [address] Monocytes/100 WBC (Bld) 7.7 % Normal 0-10 [facility] Comment on above: Performed By: #### L 500.2500, L100.0100 ####[facility] [address] [place], [address] Neutrophils/100 WBC (Bld) 45.6 % Low 47-70 [facility] Comment on above: Performed By: #### L 500.2500, L100.0100 ####[facility] [address] [place], [address] Nucleated RBC (Bld) [#/Vol] 0 10*3/uL Normal 0-5 [facility] Comment on above: Performed By: #### L 500.2500, L100.0100 ####[facility] [address] [place], [address] Platelet mean volume (Bld) [Entitic vol] 13.2 fL High 6.2-12.0 [facility] Comment on above: Performed By: #### L 500.2500, L100.0100 ####[facility] [address] [place], [address] Platelets (Bld) [#/Vol] 153 10*3/uL Normal 150-450 [facility] Comment on above: Performed By: #### L 500.2500, L100.0100 ####[facility] [address] [place], [address] RBC (Bld) [#/Vol] 2.47 10*6/uL Low 4.2-5.4 [facility] Comment on above: Performed By: #### L 500.2500, L100.0100 ####[facility] [address] [place], [address] RDW SD 56.0 fl High 35.1-43.9 [facility] Comment on above: Performed By: #### L 500.2500, L100.0100 ####[facility] [address] [place], [address] WBC (Bld) [#/Vol] 4.3 10*3/uL Low 4.4-11.0 [facility] Comment on above: Performed By: #### L 500.2500, L100.0100 ####[facility] [address] [place], [address] Carbon dioxide, total [Moles /volume] in Central venous bloodOrdered By: Alexis Friend on 10-12-2024 CO2 [Moles/Vol] 22.8 mmol/L 21.0-32.0 [facility] Carbon dioxide, total [Moles /volume] in Central venous bloodOrdered By: Gautam Hardy on 10-12-2024 CO2 [Moles/Vol] 21.9 mmol/L 21.0-32.0 [facility] Chloride assayOrdered By: Simi Friend on 10-12-2024 Chloride [Moles/Vol] 111 mmol/L High 98-108 [facility] Chloride assayOrdered By: Fernando Hardy on 10-12-2024 Chloride [Moles/Vol] 110 mmol/L High 98-108 [facility] Comprehensive Metabolic Prof ilon 10-12-2024 Albumin [Mass/Vol] 3.1 g/dL Low 3.4-4.8 [facility] Comment on above: Performed By: #### L 100.0100, L500.4050 ####[facility] [address] [place], [address] Albumin/Globulin [Mass ratio] 1.1 {ratio} Normal 0.9-2.4 [facility] Comment on above: Performed By: #### L 100.0100, L500.4050 ####[facility] [address] [place], [address] ALK PHOS 134 U/L High 35-104 [facility] Comment on above: Performed By: #### L 100.0100, L500.4050 ####[facility] [address] [place], [address] ALT [Catalytic activity/Vol] 100 U/L High <=34 [facility] Comment on above: Performed By: #### L 100.0100, L500.4050 ####[facility] [address] [place], [address] AST [Catalytic activity/Vol] 66 U/L High <=31 [facility] Comment on above: Performed By: #### L 100.0100, L500.4050 ####[facility] [address] [place], [address] Bilirubin [Mass/Vol] 0.23 mg/dL Normal 0.00-1.30 [facility] Comment on above: Performed By: #### L 100.0100, L500.4050 ####[facility] [address] [place], [address] BUN/CRE 23.9 RATIO High 10-20 [facility] Comment on above: Performed By: #### L 100.0100, L500.4050 ####[facility] [address] [place], [address] Calcium [Mass/Vol] 8.3 mg/dL Normal 7.6-11.0 [facility] Comment on above: Performed By: #### L 100.0100, L500.4050 ####[facility] [address] [place], [address] Chloride [Moles/Vol] 111 mmol/L High 98-108 [facility] Comment on above: Performed By: #### L 100.0100, L500.4050 ####[facility] [address] [place], [address] CO2 [Moles/Vol] 22.8 mmol/L Normal 21.0-32.0 [facility] Comment on above: Performed By: #### L 100.0100, L500.4050 ####[facility] [address] [place], [address] Creatinine [Mass/Vol] 3.01 mg/dL High 0.70-1.20 [facility] Comment on above: Performed By: #### L 100.0100, L500.4050 ####[facility] [address] [place], [address] ECRCL 18.75 ml/min Low 50-250 [facility] Comment on above: Performed By: #### L 100.0100, L500.4050 ####[facility] [address] [place], [address] GAP 12 Normal 5-15 [facility] Comment on above: Performed By: #### L 100.0100, L500.4050 ####[facility] [address] [place], [address] GFR/1.73 sq M.predicted among non-blacks MDRD (S/P/Bld) [Vol rate/Area] 15 mL/min/{1.73_m2} Low >60 [facility] Comment on above: Result Comment: mL/m in/1.73m2 CKD-EPI Creatinine Equation (2020) Performed By: #### L 100.0100, L500.4050 ####[facility] [address] [place], [address] Globulin (S) [Mass/Vol] 2.7 g/dL Normal 2.2-4.2 [facility] Comment on above: Performed By: #### L 100.0100, L500.4050 ####[facility] [address] [place], [address] Glucose [Mass/Vol] 97 mg/dL Normal 70-99 [facility] Comment on above: Performed By: #### L 100.0100, L500.4050 ####[facility] [address] [place], [address] Potassium [Moles/Vol] 4.4 mmol/L Normal 3.3-5.1 [facility] Comment on above: Performed By: #### L 100.0100, L500.4050 ####[facility] [address] [place], [address] Sodium [Moles/Vol] 146 mmol/L High 133-145 [facility] Comment on above: Performed By: #### L 100.0100, L500.4050 ####[facility] [address] [place], [address] T PROT 5.8 g/dL Low 5.9-8.4 [facility] Comment on above: Performed By: #### L 100.0100, L500.4050 ####[facility] [address] [place], [address] Urea nitrogen [Mass/Vol] 72 mg/dL High 4-19 [facility] Comment on above: Performed By: #### L 100.0100, L500.4050 ####[facility] [address] [place], [address] Emergency Department Summary on 10-12-2024 Emergency Department Summary Normal [facility] Eosinophil percentageOrdered By: Alexis Friend on 10-12-2024 Eosinophils/100 WBC (Bld) 5.2 % High 0-5 [facility] Eosinophil percentageOrdered By: Gautam Antony on 10-12-2024 Eosinophils/100 WBC (Bld) 7.7 % High 0-5 [facility] Erythrocyte distribution wid th ratioOrdered By: Alexis Friend on 10-12-2024 Erythrocyte distribution width (RBC) [Ratio] 14.3 % 11.6-14.6 [facility] Erythrocyte distribution wid th ratioOrdered By: Gautam Antony on 10-12-2024 Erythrocyte distribution width (RBC) [Ratio] 14.2 % 11.6-14.6 [facility] Erythrocyte distribution wid th standard deviationOrdered By: Alexis Friend on 10-12-2024 Erythrocyte distribution width (RBC) [Ratio] 57.7 fl High 35.1-43.9 [facility] Erythrocyte distribution wid th standard deviationOrdered By: Gautam Hardy on 10-12-2024 Erythrocyte distribution width (RBC) [Ratio] 56.0 fl High 35.1-43.9 [facility] Glomerular filtration rate ( GFR) estimation/1.73 sq m using serum, plasma, or whole bOrdered By: Alexis Friend on 10-12-2024 GFR/1.73 sq M.predicted among non-blacks MDRD (S/P/Bld) [Vol rate/Area] 15 mL/min/{1.73_m2} Low >60 [facility] Glomerular filtration rate ( GFR) estimation/1.73 sq m using serum, plasma, or whole bOrdered By: Gautam Hardy on 10-12-2024 GFR/1.73 sq M.predicted among non-blacks MDRD (S/P/Bld) [Vol rate/Area] 16 mL/min/{1.73_m2} Low >60 [facility] Hematocrit Auto (Bld) [Volum e fraction]Ordered By: Alexis Friend on 10-12-2024 Hematocrit (Bld) [Volume fraction] 31.0 % Low 37-47 [facility] Hematocrit Auto (Bld) [Volum e fraction]Ordered By: Gautam Hardy on 10-12-2024 Hematocrit (Bld) [Volume fraction] 26.9 % Low 37-47 [facility] Hemoglobin measurementOrdere d By: Alexis Friend on 10-12-2024 Hemoglobin (Bld) [Mass/Vol] 9.1 g/dL Low 12.0-15.0 [facility] Hemoglobin measurementOrdere d By: Gautam Hardy on 10-12-2024 Hemoglobin (Bld) [Mass/Vol] 7.9 g/dL Low 12.0-15.0 [facility] Immature granulocytes/100 WB C Auto (Bld)Ordered By: Alexis Friend on 10-12-2024 Immature granulocytes/100 WBC (Bld) 0.800 % 0.0-0.9 [facility] Immature granulocytes/100 WB C Auto (Bld)Ordered By: Gautam Hardy on 10-12-2024 Immature granulocytes/100 WBC (Bld) 0.200 % 0.0-0.9 [facility] MCV (mean corpuscular volume ) determinationOrdered By: Alexis Friend on 10-12-2024 MCV (RBC) [Entitic vol] 108.8 fL High 81-99 [facility] MCV (mean corpuscular volume ) determinationOrdered By: Gautam Antony on 10-12-2024 MCV (RBC) [Entitic vol] 108.9 fL High 81-99 [facility] Mean corpuscular hemoglobin (MCH) determinationOrdered By: Alexis Friend on 10-12-2024 MCH (RBC) [Entitic mass] 31.9 pg 27.0-32.0 [facility] Mean corpuscular hemoglobin (MCH) determinationOrdered By: Gautam Antony on 10-12-2024 MCH (RBC) [Entitic mass] 32.0 pg 27.0-32.0 [facility] Monocyte percentageOrdered B y: Alexis Friend on 10-12-2024 Monocytes/100 WBC (Bld) 5.3 % 0-10 [facility] Monocyte percentageOrdered B y: Gautam Antony on 10-12-2024 Monocytes/100 WBC (Bld) 7.7 % 0-10 [facility] Neutrophil percentageOrdered By: Alexis Friend on 10-12-2024 Neutrophils/100 WBC (Bld) 69.2 % 47-70 [facility] Neutrophil percentageOrdered By: Gautam Antony on 10-12-2024 Neutrophils/100 WBC (Bld) 45.6 % Low 47-70 [facility] No Panel InformationOrdered By: Alexis Friend on 10-12-2024 66 U/L High <32 [facility] Platelet countOrdered By: Ug o Friend on 10-12-2024 Platelets (Bld) [#/Vol] 183 10*3/uL 150-450 [facility] Platelet countOrdered By: Fernando Hardy on 10-12-2024 Platelets (Bld) [#/Vol] 153 10*3/uL 150-450 [facility] Potassium measurement (mass/ volume)Ordered By: Alexis Friend on 10-12-2024 Potassium (Unsp spec) [Mass/Vol] 4.4 mmol/L 3.3-5.1 [facility] Potassium measurement (mass/ volume)Ordered By: Gautam Hardy on 10-12-2024 Potassium (Unsp spec) [Mass/Vol] 4.3 mmol/L 3.3-5.1 [facility] RBC Auto (Bld) [#/Vol]Ordere d By: Alexis Friend on 10-12-2024 RBC (Bld) [#/Vol] 2.85 10*6/uL Low 4.2-5.4 [facility] RBC Auto (Bld) [#/Vol]Ordere d By: Gautam Hardy on 10-12-2024 RBC (Bld) [#/Vol] 2.47 10*6/uL Low 4.2-5.4 [facility] Serum creatinine measurement (mass/volume)Ordered By: Alexis Friend on 10-12-2024 Creatinine [Mass/Vol] 3.01 mg/dL High 0.70-1.20 [facility] Serum creatinine measurement (mass/volume)Ordered By: Gautam Hardy on 10-12-2024 Creatinine [Mass/Vol] 2.88 mg/dL High 0.70-1.20 [facility] Serum globulin measurementOr dered By: Alexis Friend on 10-12-2024 Globulin (S) [Mass/Vol] 2.7 g/dL 2.2-4.2 [facility] Serum glucose measurement (m ass/volume)Ordered By: Alexis Friend on 10-12-2024 Glucose [Mass/Vol] 97 mg/dL 70-99 [facility] Serum glucose measurement (m ass/volume)Ordered By: Gautam Hardy on 10-12-2024 Glucose [Mass/Vol] 84 mg/dL 70-99 [facility] Serum or plasma alanine huertas otransferase (ALT) measurementOrdered By: Alexis Friend on 10-12-2024 ALT [Catalytic activity/Vol] 100 U/L High <35 [facility] Serum or plasma albumin farheen urement (mass/volume)Ordered By: Alexis Friend on 10-12-2024 Albumin [Mass/Vol] 3.1 g/dL Low 3.4-4.8 [facility] Serum or plasma albumin/glob ulin mass ratioOrdered By: Alexis Friend on 10-12-2024 Albumin/Globulin [Mass ratio] 1.1 {ratio} 0.9-2.4 [facility] Serum or plasma alkaline mariya sphatase measurementOrdered By: Alexis Friend on 10-12-2024 ALP [Catalytic activity/Vol] 134 U/L High 35-104 [facility] Serum or plasma calcium farheen urement (mass/volume)Ordered By: Alexis Friend on 10-12-2024 Calcium [Mass/Vol] 8.3 mg/dL 7.6-11.0 [facility] Serum or plasma calcium farheen urement (mass/volume)Ordered By: Gautam Hardy on 10-12-2024 Calcium [Mass/Vol] 8.0 mg/dL 7.6-11.0 [facility] Serum or plasma urea nitroge n measurement (mass/volume)Ordered By: Alexis Friend on 10-12-2024 Urea nitrogen [Mass/Vol] 72 mg/dL High 4-19 [facility] Serum or plasma urea nitroge n measurement (mass/volume)Ordered By: Gautam Hardy on 10-12-2024 Urea nitrogen [Mass/Vol] 74 mg/dL High -19 [facility] Sodium levelOrdered By: Alexis Friend on 10-12-2024 Sodium [Moles/Vol] 146 mmol/L High 133-145 [facility] Sodium levelOrdered By: Gautam Hardy on 10-12-2024 Sodium [Moles/Vol] 144 mmol/L 133-145 [facility] Total proteinOrdered By: Alexis Friend on 10-12-2024 Protein [Mass/Vol] 5.8 g/dL Low 5.9-8.4 [facility] White blood cell (WBC) count Ordered By: Alexis Friend on 10-12-2024 WBC (Bld) [#/Vol] 6.6 10*3/uL 4.4-11.0 [facility] White blood cell (WBC) count Ordered By: Gautam Hardy on 10-12-2024 WBC (Bld) [#/Vol] 4.3 10*3/uL Low 4.4-11.0 [facility] Basic Metabolic Profile (BMP )on 10-11-2024 BUN/CRE 26.7 RATIO High 10-20 [facility] Comment on above: Performed By: #### L 500.2500 ####[facility] [address] [place], [address] Calcium [Mass/Vol] 7.9 mg/dL Normal 7.6-11.0 [facility] Comment on above: Performed By: #### L 500.2500 ####[facility] [address] [place], [address] Chloride [Moles/Vol] 111 mmol/L High 98-108 [facility] Comment on above: Performed By: #### L 500.2500 ####[facility] [address] [place], [address] CO2 [Moles/Vol] 22.3 mmol/L Normal 21.0-32.0 [facility] Comment on above: Performed By: #### L 500.2500 ####[facility] [address] [place], [address] Creatinine [Mass/Vol] 2.82 mg/dL High 0.70-1.20 [facility] Comment on above: Performed By: #### L 500.2500 ####[facility] [address] [place], [address] ECRCL 18.70 ml/min Low 50-250 [facility] Comment on above: Performed By: #### L 500.2500 ####[facility] [address] [place], [address] GAP 11 Normal 5-15 [facility] Comment on above: Performed By: #### L 500.2500 ####[facility] [address] [place], [address] GFR/1.73 sq M.predicted among non-blacks MDRD (S/P/Bld) [Vol rate/Area] 16 mL/min/{1.73_m2} Low >60 [facility] Comment on above: Result Comment: mL/m in/1.73m2 CKD-EPI Creatinine Equation (2020) Performed By: #### L 500.2500 ####[facility] [address] [place], [address] Glucose [Mass/Vol] 100 mg/dL High 70-99 [facility] Comment on above: Performed By: #### L 500.2500 ####[facility] [address] [place], [address] Potassium [Moles/Vol] 4.1 mmol/L Normal 3.3-5.1 [facility] Comment on above: Performed By: #### L 500.2500 ####[facility] [address] [place], [address] Sodium [Moles/Vol] 145 mmol/L Normal 133-145 [facility] Comment on above: Performed By: #### L 500.2500 ####[facility] [address] [place], [address] Urea nitrogen [Mass/Vol] 75 mg/dL High 4-19 [facility] Comment on above: Performed By: #### L 500.2500 ####[facility] [address] [place], [address] Venous Duplex US, Unilateral on 10-11-2024 Venous Duplex US, Unilateral Normal [facility] Venous duplex ultrasound rep ortOrdered By: Russell Gonzalez on 10-11-2024 US Vein [facility] Work Phone: Urine Cultureon 10-09-2024 URC Normal [facility] Comment on above: Performed By: #### M 100.2200 ####[facility] [address] [place], [address] Basic Metabolic Profile (BMP )on 10-08-2024 BUN/CRE 27.1 RATIO High 10-20 [facility] Comment on above: Performed By: #### L 500.2500 ####[facility] [address] [place], [address] Calcium [Mass/Vol] 7.9 mg/dL Normal 7.6-11.0 [facility] Comment on above: Performed By: #### L 500.2500 ####[facility] [address] [place], [address] Chloride [Moles/Vol] 107 mmol/L Normal 98-108 [facility] Comment on above: Performed By: #### L 500.2500 ####[facility] [address] [place], [address] CO2 [Moles/Vol] 23.5 mmol/L Normal 21.0-32.0 [facility] Comment on above: Performed By: #### L 500.2500 ####[facility] [address] [place], [address] Creatinine [Mass/Vol] 2.76 mg/dL High 0.70-1.20 [facility] Comment on above: Performed By: #### L 500.2500 ####[facility] [address] [place], [address] ECRCL 19.10 ml/min Low 50-250 [facility] Comment on above: Performed By: #### L 500.2500 ####[facility] [address] [place], [address] GAP 11 Normal 5-15 [facility] Comment on above: Performed By: #### L 500.2500 ####[facility] [address] [place], [address] GFR/1.73 sq M.predicted among non-blacks MDRD (S/P/Bld) [Vol rate/Area] 17 mL/min/{1.73_m2} Low >60 [facility] Comment on above: Result Comment: mL/m in/1.73m2 CKD-EPI Creatinine Equation (2020) Performed By: #### L 500.2500 ####[facility] [address] [place], [address] Glucose [Mass/Vol] 85 mg/dL Normal 70-99 [facility] Comment on above: Performed By: #### L 500.2500 ####[facility] [address] [place], [address] Potassium [Moles/Vol] 5.0 mmol/L Normal 3.3-5.1 [facility] Comment on above: Result Comment: Hemo lysis present, Results??could be affected.?? Performed By: #### L 500.2500 ####[facility] [address] [place], [address] Sodium [Moles/Vol] 142 mmol/L Normal 133-145 [facility] Comment on above: Performed By: #### L 500.2500 ####[facility] [address] [place], [address] Urea nitrogen [Mass/Vol] 75 mg/dL High 4-19 [facility] Comment on above: Performed By: #### L 500.2500 ####[facility] [address] [place], [address] Urinalysis, Completeon 10-07 BACTERIA 1+ /hpf Normal None Seen [facility] Comment on above: Order Comment: BLADD ER TAP Performed By: #### L 400.0001 ####[facility] [address] [place], [address] RBC 0-5 SEEN Normal 0-5 [facility] Comment on above: Order Comment: BLADD ER TAP Performed By: #### L 400.0001 ####[facility] [address] [place], [address] EPI,SQUAMOUS 0-5 SEEN Normal 5-10 [facility] Comment on above: Order Comment: BLADD ER TAP Performed By: #### L 400.0001 ####[facility] [address] [place], [place], [id number] WBC 10-25 SEEN Normal 0-5 [facility] Comment on above: Order Comment: BLADD ER TAP Performed By: #### L 400.0001 ####[facility] [address] [place], [place], [id number] Bilirubin Test strip Ql (U)O rdered By: Gautam Hardy on 10-06-2024 Bilirubin Ql (U) Negative Negative [facility] Ketones Test strip Ql (U)Ord ered By: Gautam Hardy on 10-06-2024 Ketones Ql (U) Negative Negative [facility] Mucus LM Ql (Urine sed)Order ed By: Gautam Hardy on 10-06-2024 Mucus Ql (Urine sed) 0 SEEN /hpf [facility] Nitrite Test strip Ql (U)Ord ered By: Gautam Hardy on 10-06-2024 Nitrite Ql (U) Negative Negative [facility] Protein Test strip Ql (U)Ord ered By: Gautam Hardy on 10-06-2024 Protein Ql (U) 30 mg/dl High Negative [facility] Squamous epithelial cells de tection in urine sediment by light microscopyOrdered By: Gautam Hardy on 10-06-2024 Epithelial cells.squamous LM Ql (Urine sed) 0-5 SEEN /hpf 5-10 [facility] Urinalysis, Completeon 10-06 Mucus Ql (Urine sed) 0 SEEN Normal [facility] Comment on above: Order Comment: BLADD ER TAP Performed By: #### L 400.0001 ####[facility] [address] [place], [address] Urine clarityOrdered By: Gautam Hardy on 10-06-2024 Clarity (U) Clear Clear [facility] Urine color determinationOrd ered By: Gautam Hardy on 10-06-2024 Color (U) Yellow Yellow [facility] Urine cultureOrdered By: Gautam Hardy on 10-06-2024 Bacteria identified Cx Nom (U) Vancomycin Resist. E. faecalis Abnormal [facility] Urine glucose detectionOrder ed By: Gautam Hardy on 10-06-2024 Glucose Ql (U) Normal mg/dl Normal [facility] Urine leukocyte esterase det ection by dipstickOrdered By: Gautam Hardy on 10-06-2024 Leukocyte esterase Test strip Ql (U) 25 /ul High Negative [facility] Urine pHOrdered By: Gautam Hardy on 10-06-2024 pH (U) 6.0 [pH] 5.0 - 8.0 [facility] Urine sediment bacteria coun t by microscopy (number/high power field)Ordered By: Gautam Hardy on 10-06-2024 Bacteria LM.HPF (Urine sed) [#/Area] 1 /[HPF] None Seen [facility] Urine specific gravity measu rementOrdered By: Gautam Hardy on 10-06-2024 Specific gravity (U) [Rel density] 1.015 1.002-1.03 0 [facility] Urine urobilinogen measureme ntOrdered By: Gautam Hardy on 10-06-2024 Urobilinogen Ql (U) Normal mg/dl Normal [facility] White blood cell countOrdere d By: Gautam Hardy on 10-06-2024 White blood cell count 10-25 SEEN /hpf 0-5 [facility] Basic Metabolic Profile (BMP )on 10-05-2024 BUN/CRE 25.7 RATIO High 10-20 [facility] Comment on above: Performed By: #### L 100.0100, L500.2500 ####[facility] [address] [place], [address] Calcium [Mass/Vol] 8.1 mg/dL Normal 7.6-11.0 [facility] Comment on above: Performed By: #### L 100.0100, L500.2500 ####[facility] [address] [place], [address] Chloride [Moles/Vol] 105 mmol/L Normal 98-108 [facility] Comment on above: Performed By: #### L 100.0100, L500.2500 ####[facility] [address] [place], [address] CO2 [Moles/Vol] 25.1 mmol/L Normal 21.0-32.0 [facility] Comment on above: Performed By: #### L 100.0100, L500.2500 ####[facility] [address] [place], [address] Creatinine [Mass/Vol] 2.96 mg/dL High 0.70-1.20 [facility] Comment on above: Performed By: #### L 100.0100, L500.2500 ####[facility] [address] [place], [address] ECRCL 17.81 ml/min Low 50-250 [facility] Comment on above: Performed By: #### L 100.0100, L500.2500 ####[facility] [address] [place], [address] GAP 11 Normal 5-15 [facility] Comment on above: Performed By: #### L 100.0100, L500.2500 ####[facility] [address] [place], [address] GFR/1.73 sq M.predicted among non-blacks MDRD (S/P/Bld) [Vol rate/Area] 15 mL/min/{1.73_m2} Low >60 [facility] Comment on above: Result Comment: mL/m in/1.73m2 CKD-EPI Creatinine Equation (2020) Performed By: #### L 100.0100, L500.2500 ####[facility] [address] [place], [address] Glucose [Mass/Vol] 89 mg/dL Normal 70-99 [facility] Comment on above: Performed By: #### L 100.0100, L500.2500 ####[facility] [address] [place], [address] Potassium [Moles/Vol] 4.7 mmol/L Normal 3.3-5.1 [facility] Comment on above: Performed By: #### L 100.0100, L500.2500 ####[facility] [address] [place], [address] Sodium [Moles/Vol] 141 mmol/L Normal 133-145 [facility] Comment on above: Performed By: #### L 100.0100, L500.2500 ####[facility] [address] [place], [address] Urea nitrogen [Mass/Vol] 76 mg/dL High 4-19 [facility] Comment on above: Performed By: #### L 100.0100, L500.2500 ####[facility] [address] [place], [address] CBC W/Diff, Automatedon 07-0 2-2025 Absolute Lymph 1.82 X10 3/uL Normal 0.83-4.51 [facility] Comment on above: Performed By: #### L 100.0100, L500.2500 ####[facility] [address] [place], [address] Absolute Neut 4.2 X10 3/uL Normal 2.0-7.7 [facility] Comment on above: Performed By: #### L 100.0100, L500.2500 ####[facility] [address] [place], [address] Basophils/100 WBC (Bld) 0.6 % Normal 0-1 [facility] Comment on above: Performed By: #### L 100.0100, L500.2500 ####[facility] [address] [place], [address] Eosinophils/100 WBC (Bld) 5.0 % Normal 0-5 [facility] Comment on above: Performed By: #### L 100.0100, L500.2500 ####[facility] [address] [place], [address] Erythrocyte distribution width (RBC) [Ratio] 14.7 % High 11.6-14.6 [facility] Comment on above: Performed By: #### L 100.0100, L500.2500 ####[facility] [address] [place], [address] Hematocrit (Bld) [Volume fraction] 28.9 % Low 37-47 [facility] Comment on above: Performed By: #### L 100.0100, L500.2500 ####[facility] [address] [place], [address] Hemoglobin (Bld) [Mass/Vol] 8.9 g/dL Low 12.0-15.0 [facility] Comment on above: Performed By: #### L 100.0100, L500.2500 ####[facility] [address] [place], [address] IG% 0.400 Normal 0.0-0.9 [facility] Comment on above: Result Comment: IG% - Immature Granulocytes (promyelocytes, myelocytes andmetamyelocytes) > 1% indicates that a LEFT SHIFT is Present. Performed By: #### L 100.0100, L500.2500 ####[facility] [address] [place], [address] Lymphocytes/100 WBC (Bld) 25.9 % Normal 19-41 [facility] Comment on above: Performed By: #### L 100.0100, L500.2500 ####[facility] [address] [place], [address] MCH (RBC) [Entitic mass] 32.1 pg High 27.0-32.0 [facility] Comment on above: Performed By: #### L 100.0100, L500.2500 ####[facility] [address] [place], [address] MCHC (RBC) [Mass/Vol] 30.8 g/dL Low 32-36 [facility] Comment on above: Performed By: #### L 100.0100, L500.2500 ####[facility] [address] [place], [address] MCV (RBC) [Entitic vol] 104.3 fL High 81-99 [facility] Comment on above: Performed By: #### L 100.0100, L500.2500 ####[facility] [address] [place], [address] Monocytes/100 WBC (Bld) 7.7 % Normal 0-10 [facility] Comment on above: Performed By: #### L 100.0100, L500.2500 ####[facility] [address] [place], [address] Neutrophils/100 WBC (Bld) 60.4 % Normal 47-70 [facility] Comment on above: Performed By: #### L 100.0100, L500.2500 ####[facility] [address] [place], [address] Nucleated RBC (Bld) [#/Vol] 0 10*3/uL Normal 0-5 [facility] Comment on above: Performed By: #### L 100.0100, L500.2500 ####[facility] [address] [place], [address] Platelet mean volume (Bld) [Entitic vol] 13.3 fL High 6.2-12.0 [facility] Comment on above: Performed By: #### L 100.0100, L500.2500 ####[facility] [address] [place], [address] Platelets (Bld) [#/Vol] 179 10*3/uL Normal 150-450 [facility] Comment on above: Performed By: #### L 100.0100, L500.2500 ####[facility] [address] [place], [address] RBC (Bld) [#/Vol] 2.77 10*6/uL Low 4.2-5.4 [facility] Comment on above: Performed By: #### L 100.0100, L500.2500 ####[facility] [address] [place], [address] RDW SD 56.3 fl High 35.1-43.9 [facility] Comment on above: Performed By: #### L 100.0100, L500.2500 ####[facility] [address] [place], [address] WBC (Bld) [#/Vol] 7.0 10*3/uL Normal 4.4-11.0 [facility] Comment on above: Performed By: #### L 100.0100, L500.2500 ####[facility] [address] [place], [address] Anion gap in Serum or Plasma Ordered By: Alex Acosta on 10-04-2024 Anion gap [Moles/Vol] 12 mmol/L 5-15 [facility] BUN/creatinine ratioOrdered By: Alex Acosta on 10-04-2024 Urea nitrogen/Creatinine [Mass ratio] 26.4 mg/mg High -20 [facility] Basic Metabolic Profile (BMP )on 10-04-2024 BUN/CRE 26.[address] Comment on above: Performed By: #### L 500.2500 ####[facility] [address] [place], [address] ECRCL 18.83 ml/min Low 50-250 [facility] Comment on above: Performed By: #### L 500.2500 ####[facility] [address] [place], [address] GAP 12 Normal -[address] [place] [address] Comment on above: Performed By: #### L 500.2500 ####[facility] [address] [place], [place], [id number] Potassium [Moles/Vol] 4.5 mmol/L Normal 3.3-5.1 [facility] Comment on above: Performed By: #### L 500.2500 ####[facility] [address] [place], [place], [id number] Carbon dioxide, total [Moles /volume] in Central venous bloodOrdered By: Alex Acosta on 10-04-2024 CO2 [Moles/Vol] 23.9 mmol/L Normal 21.0-32.0 [facility] Comment on above: Performed By: #### L 500.2500 ####[facility] [address] [place], [place], [id number] Chloride assayOrdered By: Gumaro Acosta on 10-04-2024 Chloride [Moles/Vol] 103 mmol/L Normal 98-108 [facility] Comment on above: Performed By: #### L 500.2500 ####[facility] [address] [place], [place], [id number] Glomerular filtration rate ( GFR) estimation/1.73 sq m using serum, plasma, or whole bOrdered By: Alex Acosta on 10-04-2024 GFR/1.73 sq M.predicted among non-blacks MDRD (S/P/Bld) [Vol rate/Area] 16 mL/min/{1.73_m2} Low >60 [facility] Comment on above: Result Comment: mL/m in/1.73m2 CKD-EPI Creatinine Equation (2020) Performed By: #### L 500.2500 ####[facility] [address] [place], [place], [id number] Potassium measurement (mass/ volume)Ordered By: Alex Acosta on 10-04-2024 Potassium (Unsp spec) [Mass/Vol] 4.5 mmol/L 3.3-5.1 [facility] Serum creatinine measurement (mass/volume)Ordered By: Alex Acosta on 10-04-2024 Creatinine [Mass/Vol] 2.85 mg/dL High 0.70-1.20 [facility] Comment on above: Performed By: #### L 500.2500 ####[facility] [address] [place], [address] Serum glucose measurement (m ass/volume)Ordered By: Alex Acosta on 10-04-2024 Glucose [Mass/Vol] 86 mg/dL Normal 70-99 [facility] Comment on above: Performed By: #### L 500.2500 ####[facility] [address] [place], [address] Serum or plasma calcium farheen urement (mass/volume)Ordered By: Alex Acosta on 10-04-2024 Calcium [Mass/Vol] 7.8 mg/dL Normal 7.6-11.0 [facility] Comment on above: Performed By: #### L 500.2500 ####[facility] [address] [place], [address] Serum or plasma urea nitroge n measurement (mass/volume)Ordered By: Alex Acosta on 10-04-2024 Urea nitrogen [Mass/Vol] 75 mg/dL High 4-19 [facility] Comment on above: Performed By: #### L 500.2500 ####[facility] [address] [place], [address] Sodium levelOrdered By: Mari Acosta on 10-04-2024 Sodium [Moles/Vol] 139 mmol/L Normal 133-145 [facility] Comment on above: Performed By: #### L 500.2500 ####[facility] [address] [place], [address] Absolute lymphocyte countOrd ered By: Alex Acosta on 10-03-2024 Lymphocytes Auto (Unsp spec) [#/Vol] 2.13 10*3/uL 0.83-4.51 [facility] Anion gap in Serum or Plasma Ordered By: Alex Acosta on 10-03-2024 Anion gap [Moles/Vol] 11 mmol/L 5-15 [facility] Automated lymphocyte count a s percentage of total leukocytesOrdered By: Alex Acosta on 10-03-2024 Lymphocytes/100 WBC Auto (Unsp spec) 32.3 % 19-41 [facility] BUN/creatinine ratioOrdered By: Alex Acosta on 10-03-2024 Urea nitrogen/Creatinine [Mass ratio] 27.3 mg/mg High 01-23 [facility] Basic Metabolic Profile (BMP )on 10-03-2024 BUN/CRE 27.3 RATIO High 01-23 [facility] Comment on above: Performed By: #### L 100.0100, L500.2500 ####[facility] [address] [place], [address] Calcium [Mass/Vol] 7.6 mg/dL Normal 7.6-11.0 [facility] Comment on above: Performed By: #### L 100.0100, L500.2500 ####[facility] [address] [place], [address] Chloride [Moles/Vol] 104 mmol/L Normal 98-108 [facility] Comment on above: Performed By: #### L 100.0100, L500.2500 ####[facility] [address] [place], [address] CO2 [Moles/Vol] 24.9 mmol/L Normal 21.0-32.0 [facility] Comment on above: Performed By: #### L 100.0100, L500.2500 ####[facility] [address] [place], [address] Creatinine [Mass/Vol] 2.84 mg/dL High 0.70-1.20 [facility] Comment on above: Performed By: #### L 100.0100, L500.2500 ####[facility] [address] [place], [address] ECRCL 18.66 ml/min Low 50-250 [facility] Comment on above: Performed By: #### L 100.0100, L500.2500 ####[facility] [address] [place], [address] GAP 11 Normal 5-15 [facility] Comment on above: Performed By: #### L 100.0100, L500.2500 ####[facility] [address] [place], [address] GFR/1.73 sq M.predicted among non-blacks MDRD (S/P/Bld) [Vol rate/Area] 16 mL/min/{1.73_m2} Low >60 [facility] Comment on above: Result Comment: mL/m in/1.73m2 CKD-EPI Creatinine Equation (2020) Performed By: #### L 100.0100, L500.2500 ####[facility] [address] [place], [address] Glucose [Mass/Vol] 102 mg/dL High 70-99 [facility] Comment on above: Performed By: #### L 100.0100, L500.2500 ####[facility] [address] [place], [address] Potassium [Moles/Vol] 4.3 mmol/L Normal 3.3-5.1 [facility] Comment on above: Performed By: #### L 100.0100, L500.2500 ####[facility] [address] [place], [address] Sodium [Moles/Vol] 140 mmol/L Normal 133-145 [facility] Comment on above: Performed By: #### L 100.0100, L500.2500 ####[facility] [address] [place], [address] Urea nitrogen [Mass/Vol] 78 mg/dL High 4-19 [facility] Comment on above: Performed By: #### L 100.0100, L500.2500 ####[facility] [address] [place], [address] Basophil percentageOrdered B y: Alex Acosta on 10-03-2024 Basophils/100 WBC (Bld) 0.6 % 0-1 [facility] CBC W/Diff, Automatedon 09-06-2024 Absolute Lymph 2.13 X10 3/uL Normal 0.83-4.51 [facility] Comment on above: Performed By: #### L 100.0100, L500.2500 ####[facility] [address] [place], [address] Absolute Neut 3.4 X10 3/uL Normal 2.0-7.7 [facility] Comment on above: Performed By: #### L 100.0100, L500.2500 ####[facility] [address] [place], [address] Basophils/100 WBC (Bld) 0.6 % Normal 0-1 [facility] Comment on above: Performed By: #### L 100.0100, L500.2500 ####[facility] [address] [place], [address] Eosinophils/100 WBC (Bld) 6.2 % High 0-5 [facility] Comment on above: Performed By: #### L 100.0100, L500.2500 ####[facility] [address] [place], [address] Erythrocyte distribution width (RBC) [Ratio] 15.1 % High 11.6-14.6 [facility] Comment on above: Performed By: #### L 100.0100, L500.2500 ####[facility] [address] [place], [address] Hematocrit (Bld) [Volume fraction] 28.5 % Low 37-47 [facility] Comment on above: Performed By: #### L 100.0100, L500.2500 ####[facility] [address] [place], [address] Hemoglobin (Bld) [Mass/Vol] 9.0 g/dL Low 12.0-15.0 [facility] Comment on above: Performed By: #### L 100.0100, L500.2500 ####[facility] [address] [place], [address] IG% 0.300 Normal 0.0-0.9 [facility] Comment on above: Result Comment: IG% - Immature Granulocytes (promyelocytes, myelocytes andmetamyelocytes) > 1% indicates that a LEFT SHIFT is Present. Performed By: #### L 100.0100, L500.2500 ####[facility] [address] [place], [address] Lymphocytes/100 WBC (Bld) 32.3 % Normal 19-41 [facility] Comment on above: Performed By: #### L 100.0100, L500.2500 ####[facility] [address] [place], [address] MCH (RBC) [Entitic mass] 32.5 pg High 27.0-32.0 [facility] Comment on above: Performed By: #### L 100.0100, L500.2500 ####[facility] [address] [place], [address] MCHC (RBC) [Mass/Vol] 31.6 g/dL Low 32-36 [facility] Comment on above: Performed By: #### L 100.0100, L500.2500 ####[facility] [address] [place], [address] MCV (RBC) [Entitic vol] 102.9 fL High 81-99 [facility] Comment on above: Performed By: #### L 100.0100, L500.2500 ####[facility] [address] [place], [address] Monocytes/100 WBC (Bld) 8.8 % Normal 0-10 [facility] Comment on above: Performed By: #### L 100.0100, L500.2500 ####[facility] [address] [place], [address] Neutrophils/100 WBC (Bld) 51.8 % Normal 47-70 [facility] Comment on above: Performed By: #### L 100.0100, L500.2500 ####[facility] [address] [place], [address] Nucleated RBC (Bld) [#/Vol] 0 10*3/uL Normal 0-5 [facility] Comment on above: Performed By: #### L 100.0100, L500.2500 ####[facility] [address] [place], [address] Platelet mean volume (Bld) [Entitic vol] 13.8 fL High 6.2-12.0 [facility] Comment on above: Performed By: #### L 100.0100, L500.2500 ####[facility] [address] [place], [address] Platelets (Bld) [#/Vol] 195 10*3/uL Normal 150-450 [facility] Comment on above: Performed By: #### L 100.0100, L500.2500 ####[facility] [address] [place], [address] RBC (Bld) [#/Vol] 2.77 10*6/uL Low 4.2-5.4 [facility] Comment on above: Performed By: #### L 100.0100, L500.2500 ####[facility] [address] [place], [address] RDW [place] 56.8 fl High 35.1-43.9 [facility] Comment on above: Performed By: #### L 100.0100, L500.2500 ####[facility] [address] [place], [address] WBC (Bld) [#/Vol] 6.6 10*3/uL Normal 4.4-11.0 [facility] Comment on above: Performed By: #### L 100.0100, L500.2500 ####[facility] [address] [place], [address] Carbon dioxide, total [Moles /volume] in Central venous bloodOrdered By: Alex Acosta on 10-03-2024 CO2 [Moles/Vol] 24.9 mmol/L 21.0-32.0 [facility] Chloride assayOrdered By: Gumaro Acosta on 10-03-2024 Chloride [Moles/Vol] 104 mmol/L 98-108 [facility] Eosinophil percentageOrdered By: Alex Acosta on 10-03-2024 Eosinophils/100 WBC (Bld) 6.2 % High 0-5 [facility] Erythrocyte distribution wid th ratioOrdered By: Alex Acosta on 10-03-2024 Erythrocyte distribution width (RBC) [Ratio] 15.1 % High 11.6-14.6 [facility] Erythrocyte distribution wid th standard deviationOrdered By: Alex Acosta on 10-03-2024 Erythrocyte distribution width (RBC) [Ratio] 56.8 fl High 35.1-43.9 [facility] Glomerular filtration rate ( GFR) estimation/1.73 sq m using serum, plasma, or whole bOrdered By: Alex Acosta on 10-03-2024 GFR/1.73 sq M.predicted among non-blacks MDRD (S/P/Bld) [Vol rate/Area] 16 mL/min/{1.73_m2} Low >60 [facility] Hematocrit Auto (Bld) [Volum e fraction]Ordered By: Alex Acosta on 10-03-2024 Hematocrit (Bld) [Volume fraction] 28.5 % Low 37-47 [facility] Hemoglobin measurementOrdere d By: Alex Acosta on 10-03-2024 Hemoglobin (Bld) [Mass/Vol] 9.0 g/dL Low 12.0-15.0 [facility] Immature granulocytes/100 WB C Auto (Bld)Ordered By: Alex Acosta on 10-03-2024 Immature granulocytes/100 WBC (Bld) 0.300 % 0.0-0.9 [facility] MCV (mean corpuscular volume ) determinationOrdered By: Alex Acosta on 10-03-2024 MCV (RBC) [Entitic vol] 102.9 fL High 81-99 [facility] Mean corpuscular hemoglobin (MCH) determinationOrdered By: Alex Acosta on 10-03-2024 MCH (RBC) [Entitic mass] 32.5 pg High 27.0-32.0 [facility] Monocyte percentageOrdered B y: Alex Acosta on 10-03-2024 Monocytes/100 WBC (Bld) 8.8 % 0-10 [facility] Neutrophil percentageOrdered By: Alex Acosta on 10-03-2024 Neutrophils/100 WBC (Bld) 51.8 % 47-70 [facility] Platelet countOrdered By: Gumaro Acosta on 10-03-2024 Platelets (Bld) [#/Vol] 195 10*3/uL 150-450 [facility] Potassium measurement (mass/ volume)Ordered By: Alex Acosta on 10-03-2024 Potassium (Unsp spec) [Mass/Vol] 4.3 mmol/L 3.3-5.1 [facility] RBC Auto (Bld) [#/Vol]Ordere d By: Alex Acosta on 10-03-2024 RBC (Bld) [#/Vol] 2.77 10*6/uL Low 4.2-5.4 [facility] Serum creatinine measurement (mass/volume)Ordered By: Alex Acosta on 10-03-2024 Creatinine [Mass/Vol] 2.84 mg/dL High 0.70-1.20 [facility] Serum glucose measurement (m ass/volume)Ordered By: Alex Acosta on 10-03-2024 Glucose [Mass/Vol] 102 mg/dL High 70-99 [facility] Serum or plasma calcium farheen urement (mass/volume)Ordered By: Alex Acosta on 10-03-2024 Calcium [Mass/Vol] 7.6 mg/dL 7.6-11.0 [facility] Serum or plasma urea nitroge n measurement (mass/volume)Ordered By: Alex Acosta on 10-03-2024 Urea nitrogen [Mass/Vol] 78 mg/dL High 4-19 [facility] Sodium levelOrdered By: Mari Acosta on 10-03-2024 Sodium [Moles/Vol] 140 mmol/L 133-145 [facility] Urine Cultureon 10-03-2024 URC Normal [facility] Comment on above: Performed By: #### M 100.2200 ####[facility] [address] [place], [address] White blood cell (WBC) count Ordered By: Alex Acosta on 10-03-2024 WBC (Bld) [#/Vol] 6.6 10*3/uL 4.4-11.0 [facility] Bilirubin, totalOrdered By: Alex Acosta on 10-02-2024 Bilirubin [Mass/Vol] 0.20 mg/dL 0.00-1.30 [facility] CBC W/Diff, Automatedon 09-05 Absolute Lymph 1.78 X10 3/uL Normal 0.83-4.51 [facility] Comment on above: Performed By: #### L 501.5200, L501.2300, L500.4050, L100.0100 ####[facility] [address] [place], [address] Absolute Neut 3.3 X10 3/uL Normal 2.0-7.7 [facility] Comment on above: Performed By: #### L 501.5200, L501.2300, L500.4050, L100.0100 ####[facility] [address] [place], [address] Basophils/100 WBC (Bld) 0.7 % Normal 0-1 [facility] Comment on above: Performed By: #### L 501.5200, L501.2300, L500.4050, L100.0100 ####[facility] [address] [place], [address] Eosinophils/100 WBC (Bld) 6.7 % High 0-5 [facility] Comment on above: Performed By: #### L 501.5200, L501.2300, L500.4050, L100.0100 ####[facility] [address] [place], [address] Erythrocyte distribution width (RBC) [Ratio] 15.5 % High 11.6-14.6 [facility] Comment on above: Performed By: #### L 501.5200, L501.2300, L500.4050, L100.0100 ####[facility] [address] [place], [address] Hematocrit (Bld) [Volume fraction] 31.4 % Low 37-47 [facility] Comment on above: Performed By: #### L 501.5200, L501.2300, L500.4050, L100.0100 ####[facility] [address] [place], [address] Hemoglobin (Bld) [Mass/Vol] 9.1 g/dL Low 12.0-15.0 [facility] Comment on above: Performed By: #### L 501.5200, L501.2300, L500.4050, L100.0100 ####[facility] [address] [place], [address] IG% 0.300 Normal 0.0-0.9 [facility] Comment on above: Result Comment: IG% - Immature Granulocytes (promyelocytes, myelocytes andmetamyelocytes) > 1% indicates that a LEFT SHIFT is Present. Performed By: #### L 501.5200, L501.2300, L500.4050, L100.0100 ####[facility] [address] [place], [address] Lymphocytes/100 WBC (Bld) 29.0 % Normal 19-41 [facility] Comment on above: Performed By: #### L 501.5200, L501.2300, L500.4050, L100.0100 ####[facility] [address] [place], [address] MCH (RBC) [Entitic mass] 32.0 pg Normal 27.0-32.0 [facility] Comment on above: Performed By: #### L 501.5200, L501.2300, L500.4050, L100.0100 ####[facility] [address] [place], [address] MCHC (RBC) [Mass/Vol] 29.0 g/dL Low 32-36 [facility] Comment on above: Performed By: #### L 501.5200, L501.2300, L500.4050, L100.0100 ####[facility] [address] [place], [address] MCV (RBC) [Entitic vol] 110.6 fL High 81-99 [facility] Comment on above: Performed By: #### L 501.5200, L501.2300, L500.4050, L100.0100 ####[facility] [address] [place], [address] Monocytes/100 WBC (Bld) 9.0 % Normal 0-10 [facility] Comment on above: Performed By: #### L 501.5200, L501.2300, L500.4050, L100.0100 ####[facility] [address] [place], [address] Neutrophils/100 WBC (Bld) 54.3 % Normal 47-70 [facility] Comment on above: Performed By: #### L 501.5200, L501.2300, L500.4050, L100.0100 ####[facility] [address] [place], [address] Nucleated RBC (Bld) [#/Vol] 0 10*3/uL Normal 0-5 [facility] Comment on above: Performed By: #### L 501.5200, L501.2300, L500.4050, L100.0100 ####[facility] [address] [place], [address] Platelet mean volume (Bld) [Entitic vol] 12.9 fL High 6.2-12.0 [facility] Comment on above: Performed By: #### L 501.5200, L501.2300, L500.4050, L100.0100 ####[facility] [address] [place], [address] Platelets (Bld) [#/Vol] 196 10*3/uL Normal 150-450 [facility] Comment on above: Performed By: #### L 501.5200, L501.2300, L500.4050, L100.0100 ####[facility] [address] [place], [address] RBC (Bld) [#/Vol] 2.84 10*6/uL Low 4.2-5.4 [facility] Comment on above: Performed By: #### L 501.5200, L501.2300, L500.4050, L100.0100 ####[facility] [address] [place], [address] RDW SD 63.0 fl High 35.1-43.9 [facility] Comment on above: Performed By: #### L 501.5200, L501.2300, L500.4050, L100.0100 ####[facility] [address] [place], [address] WBC (Bld) [#/Vol] 6.1 10*3/uL Normal 4.4-11.0 [facility] Comment on above: Performed By: #### L 501.5200, L501.2300, L500.4050, L100.0100 ####[facility] [address] [place], [address] Comprehensive Metabolic Prof waon 10-02-2024 Albumin [Mass/Vol] 2.3 g/dL Low 3.4-4.8 [facility] Comment on above: Performed By: #### L 501.5200, L501.2300, L500.4050, L100.0100 ####[facility] [address] [place], [address] Albumin/Globulin [Mass ratio] 0.9 {ratio} Normal 0.9-2.4 [facility] Comment on above: Performed By: #### L 501.5200, L501.2300, L500.4050, L100.0100 ####[facility] [address] [place], [address] ALK PHOS 121 U/L High 35-104 [facility] Comment on above: Performed By: #### L 501.5200, L501.2300, L500.4050, L100.0100 ####[facility] [address] [place], [address] ALT [Catalytic activity/Vol] 218 U/L High <=34 [facility] Comment on above: Performed By: #### L 501.5200, L501.2300, L500.4050, L100.0100 ####[facility] [address] [place], [address] AST [Catalytic activity/Vol] 71 U/L High <=31 [facility] Comment on above: Performed By: #### L 501.5200, L501.2300, L500.4050, L100.0100 ####[facility] [address] [place], [address] Bilirubin [Mass/Vol] 0.20 mg/dL Normal 0.00-1.30 [facility] Comment on above: Performed By: #### L 501.5200, L501.2300, L500.4050, L100.0100 ####[facility] [address] [place], [address] BUN/CRE 27.5 RATIO High 10-20 [facility] Comment on above: Performed By: #### L 501.5200, L501.2300, L500.4050, L100.0100 ####[facility] [address] [place], [address] Calcium [Mass/Vol] 7.7 mg/dL Normal 7.6-11.0 [facility] Comment on above: Performed By: #### L 501.5200, L501.2300, L500.4050, L100.0100 ####[facility] [address] [place], [address] Chloride [Moles/Vol] 107 mmol/L Normal 98-108 [facility] Comment on above: Performed By: #### L 501.5200, L501.2300, L500.4050, L100.0100 ####[facility] [address] [place], [address] CO2 [Moles/Vol] 15.7 mmol/L Low 21.0-32.0 [facility] Comment on above: Performed By: #### L 501.5200, L501.2300, L500.4050, L100.0100 ####[facility] [address] [place], [address] Creatinine [Mass/Vol] 2.95 mg/dL High 0.70-1.20 [facility] Comment on above: Performed By: #### L 501.5200, L501.2300, L500.4050, L100.0100 ####[facility] [address] [place], [address] ECRCL 17.83 ml/min Low 50-250 [facility] Comment on above: Performed By: #### L 501.5200, L501.2300, L500.4050, L100.0100 ####[facility] [address] [place], [address] GAP 14 Normal 5-15 [facility] Comment on above: Performed By: #### L 501.5200, L501.2300, L500.4050, L100.0100 ####[facility] [address] [place], [address] GFR/1.73 sq M.predicted among non-blacks MDRD (S/P/Bld) [Vol rate/Area] 15 mL/min/{1.73_m2} Low >60 [facility] Comment on above: Result Comment: mL/m in/1.73m2 CKD-EPI Creatinine Equation (2020) Performed By: #### L 501.5200, L501.2300, L500.4050, L100.0100 ####[facility] [address] [place], [address] Globulin (S) [Mass/Vol] 2.6 g/dL Normal 2.2-4.2 [facility] Comment on above: Performed By: #### L 501.5200, L501.2300, L500.4050, L100.0100 ####[facility] [address] [place], [address] Glucose [Mass/Vol] 101 mg/dL High 70-99 [facility] Comment on above: Performed By: #### L 501.5200, L501.2300, L500.4050, L100.0100 ####[facility] [address] [place], [address] Potassium [Moles/Vol] 4.6 mmol/L Normal 3.3-5.1 [facility] Comment on above: Performed By: #### L 501.5200, L501.2300, L500.4050, L100.0100 ####[facility] [address] [place], [address] Sodium [Moles/Vol] 137 mmol/L Normal 133-145 [facility] Comment on above: Performed By: #### L 501.5200, L501.2300, L500.4050, L100.0100 ####[facility] [address] [place], [address] T PROT 4.9 g/dL Low 5.9-8.4 [facility] Comment on above: Performed By: #### L 501.5200, L501.2300, L500.4050, L100.0100 ####[facility] [address] [place], [address] Urea nitrogen [Mass/Vol] 81 mg/dL High 4-19 [facility] Comment on above: Performed By: #### L 501.5200, L501.2300, L500.4050, L100.0100 ####[facility] [address] [place], [address] Magnesiumon 10-02-2024 Magnesium [Mass/Vol] 2.3 mg/dL High 1.5-2.2 [facility] Comment on above: Performed By: #### L 501.5200, L501.2300, L500.4050, L100.0100 ####[facility] [address] [place], [address] Magnesium measurement (mass/ volume)Ordered By: Alex Acosta on 10-02-2024 Magnesium (Unsp spec) [Mass/Vol] 2.3 mg/dL High 1.5-2.2 [facility] No Panel InformationOrdered By: Alex Acosta on 10-02-2024 71 U/L High <32 [facility] Phosphoruson 10-02-2024 Phosphate [Mass/Vol] 6.5 mg/dL High 2.7-4.5 [facility] Comment on above: Performed By: #### L 501.5200, L501.2300, L500.4050, L100.0100 ####[facility] [address] [place], [place], [id number] Serum globulin measurementOr dered By: Alex Acosta on 10-02-2024 Globulin (S) [Mass/Vol] 2.6 g/dL 2.2-4.2 [facility] Serum or plasma alanine huertas otransferase (ALT) measurementOrdered By: Alex Acosta on 10-02-2024 ALT [Catalytic activity/Vol] 218 U/L High <35 [facility] Serum or plasma albumin farheen urement (mass/volume)Ordered By: Alex Acosta on 10-02-2024 Albumin [Mass/Vol] 2.3 g/dL Low 3.4-4.8 [facility] Serum or plasma albumin/glob ulin mass ratioOrdered By: Alex Acosta on 10-02-2024 Albumin/Globulin [Mass ratio] 0.9 {ratio} 0.9-2.4 [facility] Serum or plasma alkaline mariya sphatase measurementOrdered By: Alex Acosta on 10-02-2024 ALP [Catalytic activity/Vol] 121 U/L High 35-104 [facility] Total proteinOrdered By: Kailey Acosta on 10-02-2024 Protein [Mass/Vol] 4.9 g/dL Low 5.9-8.4 [facility] Assessment of wrist artery p atency prior to arterial punctureOrdered By: Alex Acosta on 10-01-2024 Arterial patency Wrist artery --pre arterial puncture Positive [facility] Basic Metabolic Profile (BMP )on 10-01-2024 BUN/CRE 27.2 RATIO High 10-20 [facility] Comment on above: Performed By: #### L 500.2500 ####[facility] [address] [place], [address] Calcium [Mass/Vol] 7.9 mg/dL Normal 7.6-11.0 [facility] Comment on above: Performed By: #### L 500.2500 ####[facility] [address] [place], [address] Chloride [Moles/Vol] 111 mmol/L High 98-108 [facility] Comment on above: Performed By: #### L 500.2500 ####[facility] [address] [place], [address] CO2 [Moles/Vol] 15.5 mmol/L Low 21.0-32.0 [facility] Comment on above: Performed By: #### L 500.2500 ####[facility] [address] [place], [address] Creatinine [Mass/Vol] 3.11 mg/dL High 0.70-1.20 [facility] Comment on above: Performed By: #### L 500.2500 ####[facility] [address] [place], [address] ECRCL 16.66 ml/min Low 50-250 [facility] Comment on above: Performed By: #### L 500.2500 ####[facility] [address] [place], [address] GAP 14 Normal 5-15 [facility] Comment on above: Performed By: #### L 500.2500 ####[facility] [address] [place], [address] GFR/1.73 sq M.predicted among non-blacks MDRD (S/P/Bld) [Vol rate/Area] 14 mL/min/{1.73_m2} Low >60 [facility] Comment on above: Result Comment: mL/m in/1.73m2 CKD-EPI Creatinine Equation (2020) Performed By: #### L 500.2500 ####[facility] [address] [place], [address] Glucose [Mass/Vol] 104 mg/dL High 70-99 [facility] Comment on above: Performed By: #### L 500.2500 ####[facility] [address] [place], [address] Potassium [Moles/Vol] 5.0 mmol/L Normal 3.3-5.1 [facility] Comment on above: Performed By: #### L 500.2500 ####[facility] [address] [place], [address] Sodium [Moles/Vol] 140 mmol/L Normal 133-145 [facility] Comment on above: Performed By: #### L 500.2500 ####[facility] [address] [place], [address] Urea nitrogen [Mass/Vol] 85 mg/dL High 4-19 [facility] Comment on above: Performed By: #### L 500.2500 ####[facility] [address] [place], [address] BUN/CRE 26.8 RATIO High 10-20 [facility] Comment on above: Performed By: #### L 500.2500, L100.0100 ####[facility] [address] [place], [address] Calcium [Mass/Vol] 7.5 mg/dL Low 7.6-11.0 [facility] Comment on above: Performed By: #### L 500.2500, L100.0100 ####[facility] [address] [place], [address] Chloride [Moles/Vol] 115 mmol/L High 98-108 [facility] Comment on above: Performed By: #### L 500.2500, L100.0100 ####[facility] [address] [place], [address] CO2 [Moles/Vol] 12.9 mmol/L Low 21.0-32.0 [facility] Comment on above: Performed By: #### L 500.2500, L100.0100 ####[facility] [address] [place], [address] Creatinine [Mass/Vol] 3.19 mg/dL High 0.70-1.20 [facility] Comment on above: Performed By: #### L 500.2500, L100.0100 ####[facility] [address] [place], [address] ECRCL 16.24 ml/min Low 50-250 [facility] Comment on above: Performed By: #### L 500.2500, L100.0100 ####[facility] [address] [place], [address] GAP 12 Normal 5-15 [facility] Comment on above: Performed By: #### L 500.2500, L100.0100 ####[facility] [address] [place], [address] GFR/1.73 sq M.predicted among non-blacks MDRD (S/P/Bld) [Vol rate/Area] 14 mL/min/{1.73_m2} Low >60 [facility] Comment on above: Result Comment: mL/m in/1.73m2 CKD-EPI Creatinine Equation (2020) Performed By: #### L 500.2500, L100.0100 ####[facility] [address] [place], [address] Glucose [Mass/Vol] 98 mg/dL Normal 70-99 [facility] Comment on above: Performed By: #### L 500.2500, L100.0100 ####[facility] [address] [place], [address] Potassium [Moles/Vol] 5.3 mmol/L High 3.3-5.1 [facility] Comment on above: Result Comment: Hemo lysis present, Results??could be affected.?? Performed By: #### L 500.2500, L100.0100 ####[facility] [address] [place], [address] Sodium [Moles/Vol] 140 mmol/L Normal 133-145 [facility] Comment on above: Performed By: #### L 500.2500, L100.0100 ####[facility] [address] [place], [address] Urea nitrogen [Mass/Vol] 85 mg/dL High 4-19 [facility] Comment on above: Performed By: #### L 500.2500, L100.0100 ####[facility] [address] [place], [address] Blood Gases by [facility] 025 ALMA DELIA TEST Positive Normal [facility] Comment on above: Performed By: #### L 9000.0800 ####[facility] [address] [place], [address] Base excess Calc (Bld) [Moles/Vol] -12 mmol/L Low -2 to +2 [facility] Comment on above: Performed By: #### L 9000.0800 ####[facility] [address] [place], [address] Blood Gas Type ART Normal [facility] Comment on above: Performed By: #### L 9000.0800 ####[facility] [address] [place], [address] CO2 [Moles/Vol] 17 mmol/L Normal [facility] Comment on above: Performed By: #### L 9000.0800 ####[facility] [address] [place], [address] FI02 21.0 Normal [facility] Comment on above: Performed By: #### L 9000.0800 ####[facility] [address] [place], [address] HCO3 (Bld) [Moles/Vol] 15.7 mmol/L Low 22-26 [facility] Comment on above: Performed By: #### L 8999.08 ####[facility] [address] [place], [address] Mode Not entered Normal [facility] Comment on above: Performed By: #### L 8999.08 ####[facility] [address] [place], [address] O2 Delivery Dev Room Air Normal [facility] Comment on above: Performed By: #### L 8999.08 ####[facility] [address] [place], [address] pCO2 38.4 mmHg Normal 35-45 [facility] Comment on above: Performed By: #### L 8999.08 ####[facility] [address] [place], [address] pH (Bld) 7.22 [pH] Low 7.35-7.45 [facility] Comment on above: Performed By: #### L 8999.08 ####[facility] [address] [place], [address] PO2 80 mmHG Normal 75-100 [facility] Comment on above: Performed By: #### L 0.08 ####[facility] [address] [place], [address] SITE R Radial Normal [facility] Comment on above: Performed By: #### L 8999.0800 ####[facility] [address] [place], [address] SO2 93 Low 95-99 [facility] Comment on above: Performed By: #### L 0.0800 ####[facility] [address] [place], [address] Blood base excess determinat ionOrdered By: Alex Acosta on 10-01-2024 Base excess Calc (BldV) [Moles/Vol] -12 mmol/L Low -2-2 [facility] Blood bicarbonate measuremen tOrdered By: Alex Acosta on 10-01-2024 HCO3 (Bld) [Moles/Vol] 15.7 mmol/L Low 22-26 [facility] CBC W/Diff, Automatedon - Absolute Neut Normal 2.0-7.7 [facility] Comment on above: Result Comment: YVONNE ENT DISCHARGED Performed By: #### L 500.2500, L100.0100 ####[facility] [address] [place], [address] HCT Normal 37-47 [facility] Comment on above: Result Comment: YVONNE ENT DISCHARGED Performed By: #### L 500.2500, L100.0100 ####[facility] [address] [place], [address] HGB Normal 12.0-15.0 [facility] Comment on above: Result Comment: YVONNE ENT DISCHARGED Performed By: #### L 500.2500, L100.0100 ####[facility] [address] [place], [address] MCH Normal 27.0-32.0 [facility] Comment on above: Result Comment: YVONNE ENT DISCHARGED Performed By: #### L 500.2500, L100.0100 ####[facility] [address] [place], [address] MCHC Normal 32-36 [facility] Comment on above: Result Comment: YVONNE ENT DISCHARGED Performed By: #### L 500.2500, L100.0100 ####[facility] [address] [place], [address] MCV Normal 81-99 [facility] Comment on above: Result Comment: YVONNE ENT DISCHARGED Performed By: #### L 500.2500, L100.0100 ####[facility] [address] [place], [address] NEUT% Normal 47-70 [facility] Comment on above: Result Comment: YVONNE ENT DISCHARGED Performed By: #### L 500.2500, L100.0100 ####[facility] [address] [place], [address] PLT Normal 150-450 [facility] Comment on above: Result Comment: YVONNE ENT DISCHARGED Performed By: #### L 500.2500, L100.0100 ####[facility] [address] [place], [address] RBC Normal 4.2-5.4 [facility] Comment on above: Result Comment: YVONNE ENT DISCHARGED Performed By: #### L 500.2500, L100.0100 ####[facility] [address] [place], [address] RDW CV Normal 11.6-14.6 [facility] Comment on above: Result Comment: YVONNE ENT DISCHARGED Performed By: #### L 500.2500, L100.0100 ####[facility] [address] [place], [address] RDW SD Normal 35.1-43.9 [facility] Comment on above: Result Comment: YVONNE ENT DISCHARGED Performed By: #### L 500.2500, L100.0100 ####[facility] [address] [place], [address] WBC Normal 4.4-11.0 [facility] Comment on above: Result Comment: YVONNE ENT DISCHARGED Performed By: #### L 500.2500, L100.0100 ####[facility] [address] [place], [address] Measurement, pHOrdered By: Ashley Acosta on 10-01-2024 pH (Unsp spec) 7.22 [pH] Low 7.35-7.45 [facility] No Panel InformationOrdered By: Alex Acosta on 10-01-2024 ART [facility] R Radial [facility] Not entered [facility] Room Air [facility] Total carbon dioxide measure mentOrdered By: Alex Acosta on 10-01-2024 CO2 [Moles/Vol] 17 mmol/L [facility] Urine Cultureon 10-01-2024 URC Normal [facility] Comment on above: Performed By: #### M 100.2200 ####[facility] [address] [place], [address] Basic Metabolic Profile (BMP )on 09-30-2024 BUN/CRE 27.1 RATIO High 10-20 [facility] Comment on above: Performed By: #### L 100.0100, L500.2500 ####[facility] [address] [place], [address] Calcium [Mass/Vol] 7.6 mg/dL Normal 7.6-11.0 [facility] Comment on above: Performed By: #### L 100.0100, L500.2500 ####[facility] [address] [place], [address] Chloride [Moles/Vol] 113 mmol/L High 98-108 [facility] Comment on above: Performed By: #### L 100.0100, L500.2500 ####[facility] [address] [place], [address] CO2 [Moles/Vol] 14.3 mmol/L Low 21.0-32.0 [facility] Comment on above: Performed By: #### L 100.0100, L500.2500 ####[facility] [address] [place], [address] Creatinine [Mass/Vol] 3.53 mg/dL High 0.70-1.20 [facility] Comment on above: Performed By: #### L 100.0100, L500.2500 ####[facility] [address] [place], [address] ECRCL 14.64 ml/min Low 50-250 [facility] [facility] Comment on above: Performed By: #### L 100.0100, L500.2500 ####[facility] [address] [place], [address] GAP 12 Normal 5-15 [facility] Comment on above: Performed By: #### L 100.0100, L500.2500 ####[facility] [address] [place], [address] GFR/1.73 sq M.predicted among non-blacks MDRD (S/P/Bld) [Vol rate/Area] 12 mL/min/{1.73_m2} Low >60 [facility] Comment on above: Result Comment: mL/m in/1.73m2 CKD-EPI Creatinine Equation (2020) Performed By: #### L 100.0100, L500.2500 ####[facility] [address] [place], [address] Glucose [Mass/Vol] 99 mg/dL Normal 70-99 [facility] Comment on above: Performed By: #### L 100.0100, L500.2500 ####[facility] [address] [place], [address] Potassium [Moles/Vol] 5.1 mmol/L Normal 3.3-5.1 [facility] Comment on above: Performed By: #### L 100.0100, L500.2500 ####[facility] [address] [place], [address] Sodium [Moles/Vol] 140 mmol/L Normal 133-145 [facility] Comment on above: Performed By: #### L 100.0100, L500.2500 ####[facility] [address] [place], [address] Urea nitrogen [Mass/Vol] 96 mg/dL High 4-19 [facility] Comment on above: Performed By: #### L 100.0100, L500.2500 ####[facility] [address] [place], [address] CBC W/Diff, Automatedon 09-05 Absolute Lymph 1.86 X10 3/uL Normal 0.83-4.51 [facility] Comment on above: Performed By: #### L 100.0100, L500.2500 ####[facility] [address] [place], [address] Absolute Neut 3.7 X10 3/uL Normal 2.0-7.7 [facility] Comment on above: Performed By: #### L 100.0100, L500.2500 ####[facility] [address] [place], [address] Basophils/100 WBC (Bld) 0.3 % Normal 0-1 [facility] Comment on above: Performed By: #### L 100.0100, L500.2500 ####[facility] [address] [place], [address] Eosinophils/100 WBC (Bld) 4.3 % Normal 0-5 [facility] Comment on above: Performed By: #### L 100.0100, L500.2500 ####[facility] [address] [place], [address] Erythrocyte distribution width (RBC) [Ratio] 15.6 % High 11.6-14.6 [facility] Comment on above: Performed By: #### L 100.0100, L500.2500 ####[facility] [address] [place], [address] Hematocrit (Bld) [Volume fraction] 28.0 % Low 37-47 [facility] Comment on above: Performed By: #### L 100.0100, L500.2500 ####[facility] [address] [place], [address] Hemoglobin (Bld) [Mass/Vol] 8.7 g/dL Low 12.0-15.0 [facility] Comment on above: Performed By: #### L 100.0100, L500.2500 ####[facility] [address] [place], [address] IG% 0.500 Normal 0.0-0.9 [facility] Comment on above: Result Comment: IG% - Immature Granulocytes (promyelocytes, myelocytes andmetamyelocytes) > 1% indicates that a LEFT SHIFT is Present. Performed By: #### L 100.0100, L500.2500 ####[facility] [address] [place], [address] Lymphocytes/100 WBC (Bld) 28.6 % Normal 19-41 [facility] Comment on above: Performed By: #### L 100.0100, L500.2500 ####[facility] [address] [place], [address] MCH (RBC) [Entitic mass] 32.1 pg High 27.0-32.0 [facility] Comment on above: Performed By: #### L 100.0100, L500.2500 ####[facility] [address] [place], [address] MCHC (RBC) [Mass/Vol] 31.1 g/dL Low 32-36 [facility] Comment on above: Performed By: #### L 100.0100, L500.2500 ####[facility] [address] [place], [address] MCV (RBC) [Entitic vol] 103.3 fL High 81-99 [facility] Comment on above: Performed By: #### L 100.0100, L500.2500 ####[facility] [address] [place], [address] Monocytes/100 WBC (Bld) 8.9 % Normal 0-10 [facility] Comment on above: Performed By: #### L 100.0100, L500.2500 ####[facility] [address] [place], [address] Neutrophils/100 WBC (Bld) 57.4 % Normal 47-70 [facility] Comment on above: Performed By: #### L 100.0100, L500.2500 ####[facility] [address] [place], [address] Nucleated RBC (Bld) [#/Vol] 0 10*3/uL Normal 0-5 [facility] Comment on above: Performed By: #### L 100.0100, L500.2500 ####[facility] [address] [place], [address] Platelet mean volume (Bld) [Entitic vol] 13.3 fL High 6.2-12.0 [facility] Comment on above: Performed By: #### L 100.0100, L500.2500 ####[facility] [address] [place], [address] Platelets (Bld) [#/Vol] 195 10*3/uL Normal 150-450 [facility] Comment on above: Performed By: #### L 100.0100, L500.2500 ####[facility] [address] [place], [address] RBC (Bld) [#/Vol] 2.71 10*6/uL Low 4.2-5.4 [facility] Comment on above: Performed By: #### L 100.0100, L500.2500 ####[facility] [address] [place], [address] RDW SD 59.2 fl High 35.1-43.9 [facility] Comment on above: Performed By: #### L 100.0100, L500.2500 ####[facility] [address] [place], [address] WBC (Bld) [#/Vol] 6.5 10*3/uL Normal 4.4-11.0 [facility] Comment on above: Performed By: #### L 100.0100, L500.2500 ####[facility] [address] [place], [address] Urine cultureOrdered By: Helen Zamora on 09-30-2024 Bacteria identified Cx Nom (U) Enterococcus raffinosus Abnormal [facility] Basic Metabolic Profile (BMP )on 09-29-2024 BUN/CRE 26.7 RATIO High 10-20 [facility] Comment on above: Performed By: #### L 500.2500 ####[facility] [address] [place], [address] Calcium [Mass/Vol] 8.0 mg/dL Normal 7.6-11.0 [facility] Comment on above: Performed By: #### L 500.2500 ####[facility] [address] [place], [address] Performed By: #### L 100.0100, L500.4050 ####[facility] [address] [place], [address] Chloride [Moles/Vol] 112 mmol/L High 98-108 [facility] Comment on above: Performed By: #### L 500.2500 ####[facility] [address] [place], [address] CO2 [Moles/Vol] 12.4 mmol/L Low 21.0-32.0 [facility] Comment on above: Performed By: #### L 500.2500 ####[facility] [address] [place], [address] Creatinine [Mass/Vol] 3.90 mg/dL High 0.70-1.20 [facility] Comment on above: Performed By: #### L 500.2500 ####[facility] [address] [place], [address] ECRCL 13.06 ml/min Low 50-250 [facility] Comment on above: Performed By: #### L 500.2500 ####[facility] [address] [place], [address] GAP 17 High 5-15 [facility] Comment on above: Performed By: #### L 500.2500 ####[facility] [address] [place], [address] GFR/1.73 sq M.predicted among non-blacks MDRD (S/P/Bld) [Vol rate/Area] 11 mL/min/{1.73_m2} Low >60 [facility] Comment on above: Result Comment: mL/m in/1.73m2 CKD-EPI Creatinine Equation (2020) Performed By: #### L 500.2500 ####[facility] [address] [place], [address] Performed By: #### L 100.0100, L500.4050 ####[facility] [address] [place], [address] Glucose [Mass/Vol] 147 mg/dL High 70-99 [facility] Comment on above: Performed By: #### L 500.2500 ####[facility] [address] [place], [address] Potassium [Moles/Vol] 5.1 mmol/L Normal 3.3-5.1 [facility] Comment on above: Performed By: #### L 500.2500 ####[facility] [address] [place], [address] Sodium [Moles/Vol] 141 mmol/L Normal 133-145 [facility] Comment on above: Performed By: #### L 500.2500 ####[facility] [address] [place], [address] Performed By: #### L 100.0100, L500.4050 ####[facility] [address] [place], [address] Urea nitrogen [Mass/Vol] 104 mg/dL Invalid Interpretation Code 07-23 [facility] Comment on above: Result Comment: Crit ical Result(s) Called at:0251 by:??CHRISTIANNE GREGG Results read back by same. Performed By: #### L 500.2500 ####[facility] [address] [place], [address] Bedside Glucoseon 09-29-2024 FINGERSTICK GLU 81 mg/dL Normal 74-106 [facility] Comment on above: Result Comment: ALIDA GEMENT OF PATIENT CARE PER NURSING PROTOCOL Performed By: #### L 501.080 ####[facility] [address] [place], [address] FINGERSTICK GLU 87 mg/dL Normal 74-106 [facility] Comment on above: Result Comment: ALIDA GEMENT OF PATIENT CARE PER NURSING PROTOCOL Performed By: #### L 501.080 ####[facility] [address] [place], [address] FINGERSTICK GLU 52 mg/dL Low 74-106 [facility] Comment on above: Result Comment: ALIDA GEMENT OF PATIENT CARE PER NURSING PROTOCOL Performed By: #### L 501.080 ####[facility] [address] [place], [address] FINGERSTICK GLU 59 mg/dL Low 74-106 [facility] Comment on above: Result Comment: ALIDA GEMENT OF PATIENT CARE PER NURSING PROTOCOL Performed By: #### L 501.080 ####[facility] [address] [place], [address] FINGERSTICK GLU 89 mg/dL Normal 74-106 [facility] Comment on above: Result Comment: ALIDA GEMENT OF PATIENT CARE PER NURSING PROTOCOL Performed By: #### L 501.080 ####[facility] [address] [place], [address] FINGERSTICK GLU 143 mg/dL High 74-106 [facility] Comment on above: Result Comment: ALIDA GEMENT OF PATIENT CARE PER NURSING PROTOCOL Performed By: #### L 501.080 ####[facility] [address] [place], [address] CBC W/Diff, Automatedon -2 -2024 Absolute Lymph 1.77 X10 3/uL Normal 0.83-4.51 [facility] Comment on above: Performed By: #### L 100.0100, L500.4050 ####[facility] [address] [place], [address] Absolute Neut 2.9 X10 3/uL Normal 2.0-7.7 [facility] Comment on above: Performed By: #### L 100.0100, L500.4050 ####[facility] [address] [place], [address] Basophils/100 WBC (Bld) 0.5 % Normal 0-1 [facility] Comment on above: Performed By: #### L 100.0100, L500.4050 ####[facility] [address] [place], [address] Eosinophils/100 WBC (Bld) 3.8 % Normal 0-5 [facility] Comment on above: Performed By: #### L 100.0100, L500.4050 ####[facility] [address] [place], [address] Erythrocyte distribution width (RBC) [Ratio] 15.4 % High 11.6-14.6 [facility] Comment on above: Performed By: #### L 100.0100, L500.4050 ####[facility] [address] [place], [address] Hematocrit (Bld) [Volume fraction] 29.4 % Low 37-47 [facility] Comment on above: Performed By: #### L 100.0100, L500.4050 ####[facility] [address] [place], [address] Hemoglobin (Bld) [Mass/Vol] 8.9 g/dL Low 12.0-15.0 [facility] Comment on above: Performed By: #### L 100.0100, L500.4050 ####[facility] [address] [place], [address] IG% 0.200 Normal 0.0-0.9 [facility] Comment on above: Result Comment: IG% - Immature Granulocytes (promyelocytes, myelocytes andmetamyelocytes) > 1% indicates that a LEFT SHIFT is Present. Performed By: #### L 100.0100, L500.4050 ####[facility] [address] [place], [address] Lymphocytes/100 WBC (Bld) 32.2 % Normal 19-41 [facility] Comment on above: Performed By: #### L 100.0100, L500.4050 ####[facility] [address] [place], [address] MCH (RBC) [Entitic mass] 31.8 pg Normal 27.0-32.0 [facility] Comment on above: Performed By: #### L 100.0100, L500.4050 ####[facility] [address] [place], [address] MCHC (RBC) [Mass/Vol] 30.3 g/dL Low 32-36 [facility] Comment on above: Performed By: #### L 100.0100, L500.4050 ####[facility] [address] [place], [address] MCV (RBC) [Entitic vol] 105.0 fL High 81-99 [facility] Comment on above: Performed By: #### L 100.0100, L500.4050 ####[facility] [address] [place], [address] Monocytes/100 WBC (Bld) 9.8 % Normal 0-10 [facility] Comment on above: Performed By: #### L 100.0100, L500.4050 ####[facility] [address] [place], [address] Neutrophils/100 WBC (Bld) 53.5 % Normal 47-70 [facility] Comment on above: Performed By: #### L 100.0100, L500.4050 ####[facility] [address] [place], [address] Nucleated RBC (Bld) [#/Vol] 0 10*3/uL Normal 0-5 [facility] Comment on above: Performed By: #### L 100.0100, L500.4050 ####[facility] [address] [place], [address] Platelet mean volume (Bld) [Entitic vol] 13.8 fL High 6.2-12.0 [facility] Comment on above: Performed By: #### L 100.0100, L500.4050 ####[facility] [address] [place], [address] Platelets (Bld) [#/Vol] 189 10*3/uL Normal 150-450 [facility] Comment on above: Performed By: #### L 100.0100, L500.4050 ####[facility] [address] [place], [address] RBC (Bld) [#/Vol] 2.80 10*6/uL Low 4.2-5.4 [facility] Comment on above: Performed By: #### L 100.0100, L500.4050 ####[facility] [address] [place], [address] RDW SD 59.1 fl High 35.1-43.9 [facility] Comment on above: Performed By: #### L 100.0100, L500.4050 ####[facility] [address] [place], [address] WBC (Bld) [#/Vol] 5.5 10*3/uL Normal 4.4-11.0 [facility] Comment on above: Performed By: #### L 100.0100, L500.4050 ####[facility] [address] [place], [address] CNPNon 09-29-2024 [facility] Telephone (FAMPWS) JOHNMARI ([id number]) 1940 F Date Time Provider Department 09/29/24 [facility]ZY CAPONE [facility] During your visit today, we recorded the following information about you: Adela Pena LPN 09/29/2024 10:28 AM Signed Patient friend said she is her POA, Alex calling said patient is currently admitted to [facility]. She was taken via squad last night, with UTI, dehydration, confusion, high potassium, etc. She wanted to let PCP know that. Lizy Capone MD 09/30/2024 8:28 AM Signed Noted Lizy Capone MD Allergies As of Date: 09/29/2024 Noted Allergy Reaction BACTRIM (SULFAMETHOXAZOLE-TRIMETH*0 07/23/2016 4 - Hives Comments: Blisters: head to toe IBUPROFEN 11/08/2015 2 - Rash KEFZOL (CEFAZOLIN SODIUM) 08/09/2018 4 - Hives PEANUT 03/31/2023 10 - Anaphylaxis SULFA (SULFONAMIDE ANTIBIOTICS) 07/23/2016 4 - Hives 16 - Unknown Comments: Blisters: head to toe Date Reviewed: 09/22/2024 Reviewed by: Alex Lackey MA - Fully Assessed Reason for Visit: Patient Update [1234] Prescriptions as of 09/30/2024 - gabapentin (NEURONTIN) 300 mg capsule Take 1 capsule by mouth three times a day for 180 days. Take one pill 3 times per day - calcium acetate,phosphat bind, (PHOSLO) 667 mg capsule Take 1 capsule by mouth three times a day. - Zinc Gluconate 50 mg tablet Take 1 tablet by mouth once daily. - multivitamin tablet Take 1 tablet by mouth once daily. - predniSONE (DELTASONE) 20 mg tablet Take 2 tablets by mouth once daily. - guaiFENesin (MUCINEX) 600 mg 12 hr tablet Take 1 tablet by mouth two times a day. - zolpidem (AMBIEN) 10 mg Take 1 tablet by mouth at bedtime as needed for up to 90 days. - benzonatate (TESSALON PERLE) 100 mg capsule Take 1 capsule by mouth three times a day as needed for cough for up to 12 doses. - atorvastatin (LIPITOR) 40 mg tablet Take 1 tablet by mouth once daily. - bisacodyl (DULCOLAX) 10 mg supp 1 suppository by RECTAL route once daily as needed for constipation. - carvedilol (COREG) 6.25 mg tablet Take [...] Glucosamine-chondroitin, Fish-Oil Problem List As Of Date 09/29/2024 Noted Resolved Class 3 severe obesity with body mass index (BM*06/28/2003 BENIGN HYPERTENSION(aka HTN) [I10] 07/21/2003 ASTHMA UNSPECIFIED [J45.909] 07/21/2003 OTHER UNSPEC SLEEP APNEA(aka APNEA) [G47.30] 07/21/2003 Primary osteoarthritis of both knees [M17.0] 07/21/2003 THROMBOPHLEBITIS NOS(aka DVT) [I80.9] 07/21/2003 08/21/2009 PULMON EMBOLISM/INFARCT(aka EMBOLISM) [415.1] 07/21/2003 08/21/2009 VENTRAL HERNIA NEC [K43.9] 03/26/2004 07/01/2007 ASA CLASS III [1003] 05/07/2005 07/12/2021 INJURY TRUNK SITE NEC [FMB0953] 01/16/2006 07/01/2007 Anemia in chronic kidney disease [...] 05/01/2020 Chronic midline low back pain with scia (more content not included)... Normal [facility] Metabolic [facility] ilon 09-29-2024 Albumin [Mass/Vol] 2.9 g/dL Low 3.4-4.8 [facility] Comment on above: Performed By: #### L 100.0100, L500.4050 ####[facility] [address] [place], [address] Albumin/Globulin [Mass ratio] 1.2 {ratio} Normal 0.9-2.4 [facility] Comment on above: Performed By: #### L 100.0100, L500.4050 ####[facility] [address] [place], [address] ALK PHOS 148 U/L High 35-104 [facility] Comment on above: Performed By: #### L 100.0100, L500.4050 ####[facility] [address] [place], [address] ALT [Catalytic activity/Vol] 485 U/L High <=34 [facility] Comment on above: Performed By: #### L 100.0100, L500.4050 ####[facility] [address] [place], [address] AST [Catalytic activity/Vol] 561 U/L High <=31 [facility] Comment on above: Performed By: #### L 100.0100, L500.4050 ####[facility] [address] [place], [address] Bilirubin [Mass/Vol] 0.18 mg/dL Normal 0.00-1.30 [facility] Comment on above: Performed By: #### L 100.0100, L500.4050 ####[facility] [address] [place], [address] BUN/CRE 27.2 RATIO High 10-20 [facility] Comment on above: Performed By: #### L 100.0100, L500.4050 ####[facility] [address] [place], [address] Chloride [Moles/Vol] 111 mmol/L High 98-108 [facility] Comment on above: Performed By: #### L 100.0100, L500.4050 ####[facility] [address] [place], [address] CO2 [Moles/Vol] 13.6 mmol/L Low 21.0-32.0 [facility] Comment on above: Performed By: #### L 100.0100, L500.4050 ####[facility] [address] [place], [address] Creatinine [Mass/Vol] 3.78 mg/dL High 0.70-1.20 [facility] Comment on above: Performed By: #### L 100.0100, L500.4050 ####[facility] [address] [place], [address] ECRCL 13.47 ml/min Low 50-250 [facility] Comment on above: Performed By: #### L 100.0100, L500.4050 ####[facility] [address] [place], [address] GAP 16 High 5-15 [facility] Comment on above: Performed By: #### L 100.0100, L500.4050 ####[facility] [address] [place], [address] Globulin (S) [Mass/Vol] 2.4 g/dL Normal 2.2-4.2 [facility] Comment on above: Performed By: #### L 100.0100, L500.4050 ####[facility] [address] [place], [address] Glucose [Mass/Vol] 62 mg/dL Low 70-99 [facility] Comment on above: Performed By: #### L 100.0100, L500.4050 ####[facility] [address] [place], [address] Potassium [Moles/Vol] 4.7 mmol/L Normal 3.3-5.1 [facility] Comment on above: Performed By: #### L 100.0100, L500.4050 ####[facility] [address] [place], [address] T PROT 5.3 g/dL Low 5.9-8.4 [facility] Comment on above: Performed By: #### L 100.0100, L500.4050 ####[facility] [address] [place], [address] Urea nitrogen [Mass/Vol] 103 mg/dL Invalid Interpretation Code 4-19 [facility] Comment on above: Result Comment: Crit ical Result(s) Called at:0413 by: CHRISTIANNE GUZMAN TO KRISTY??Results read back by same. Performed By: #### L 100.0100, L500.4050 ####[facility] [address] [place], [address] Consultation - Nephrologyon 09-29-2024 Consultation - Nephrology Normal [facility] deOrdered By: Russell Todd on 09-29-2024 Glucose [Mass/Vol] 81 mg/dL 74-106 [facility] L499.0042on 09-29-2024 Trop T High Sen 55 ng/L Invalid Interpretation Code <=14 [facility] Comment on above: Result Comment: Crit ical Result(s) Called at:0236 by:??CHRISTIANNE HAVEN TO KRISTY Results read back by same. Performed By: #### L 499.0042 ####[facility] [address] [place], [address] L499.0043on 09-29-2024 Trop T High Sen 44 ng/L High <=14 [facility] Comment on above: Performed By: #### L 499.0043 ####[facility] [address] [place], [address] Troponin T.cardiac [Mass/vol ume] in Serum or Plasma by High sensitivity methodOrdered By: Michelle Gallardo on 09-29-2024 Troponin T.cardiac High sensitivity method [Mass/Vol] 44 ng/L High <14 [facility] Troponin T.cardiac High sensitivity method [Mass/Vol] 55 ng/L High <14 [facility] Urine cultureOrdered By: Sandra Gallardo on 09-29-2024 Bacteria identified Cx Nom (U) Escherichia coli Abnormal [facility] Absolute lymphocyte countOrd ered By: Jhonatan Maxwell on 09-28-2024 Lymphocytes Auto (Unsp spec) [#/Vol] 1.52 10*3/uL 0.83-4.51 [facility] Anion gap in Serum or Plasma Ordered By: Jhonatan Maxwell on 09-28-2024 Anion gap [Moles/Vol] 15 mmol/L 5-15 [facility] Automated lymphocyte count a s percentage of total leukocytesOrdered By: Jhonatan Maxwell on 09-28-2024 Lymphocytes/100 WBC Auto (Unsp spec) 20.1 % 19-41 [facility] BUN/creatinine ratioOrdered By: Jhonatan Maxwell on 09-28-2024 Urea nitrogen/Creatinine [Mass ratio] 26.7 mg/mg High 10-20 [facility] Basic Metabolic Profile (BMP )on 09-28-2024 BUN/CRE 26.2 RATIO High - [facility] Comment on above: Performed By: #### L 500.2500 ####[facility] [address] [place], [address] Calcium [Mass/Vol] 8.2 mg/dL Normal 7.6-11.0 [facility] Comment on above: Performed By: #### L 500.2500 ####[facility] [address] [place], [address] Chloride [Moles/Vol] 113 mmol/L High 98-108 [facility] Comment on above: Performed By: #### L 500.2500 ####[facility] [address] [place], [address] CO2 [Moles/Vol] 11.1 mmol/L Low 21.0-32.0 [facility] Comment on above: Performed By: #### L 500.2500 ####[facility] [address] [place], [address] Creatinine [Mass/Vol] 3.97 mg/dL High 0.70-1.20 [facility] Comment on above: Performed By: #### L 500.2500 ####[facility] [address] [place], [address] ECRCL 12.83 ml/min Low 50-250 [facility] Comment on above: Performed By: #### L 500.2500 ####[facility] [address] [place], [address] GAP 16 High 5-15 [facility] Comment on above: Performed By: #### L 500.2500 ####[facility] [address] [place], [address] GFR/1.73 sq M.predicted among non-blacks MDRD (S/P/Bld) [Vol rate/Area] 11 mL/min/{1.73_m2} Low >60 [facility] Comment on above: Result Comment: mL/m in/1.73m2 CKD-EPI Creatinine Equation (2020) Performed By: #### L 500.2500 ####[facility] [address] [place], [address] Glucose [Mass/Vol] 170 mg/dL High 70-99 [facility] Comment on above: Performed By: #### L 500.2500 ####[facility] [address] [place], [address] Potassium [Moles/Vol] 5.4 mmol/L High 3.3-5.1 [facility] Comment on above: Performed By: #### L 500.2500 ####[facility] [address] [place], [address] Sodium [Moles/Vol] 139 mmol/L Normal 133-145 [facility] Comment on above: Performed By: #### L 500.2500 ####[facility] [address] [place], [address] Urea nitrogen [Mass/Vol] 104 mg/dL Invalid Interpretation Code 4-19 [facility] Comment on above: Result Comment: Crit ical Result(s) Called at: 2340 by:??CHRISTIANNE SCHMITZ Results read back by same. Performed By: #### L 500.2500 ####[facility] [address] [place], [address] Basophil percentageOrdered B y: Jhonatan Maxwell on 09-28-2024 Basophils/100 WBC (Bld) 0.3 % 0-1 [facility] Bedside Glucoseon 09-28-2024 FINGERSTICK GLU 145 mg/dL High 74-106 [facility] Comment on above: Result Comment: ALIDA GLASS OF PATIENT CARE PER NURSING PROTOCOL Performed By: #### L 501.080 ####[facility] [address] [place], [address] Bilirubin Test strip Ql (U)O rdered By: Jhonatan Maxwell on 09-28-2024 Bilirubin Ql (U) Negative Negative [facility] Bilirubin, totalOrdered By: Jhonatan Maxwell on 09-28-2024 Bilirubin [Mass/Vol] 0.20 mg/dL 0.00-1.30 [facility] Brain/Head without Contrasto n 09-28-2024 Brain/Head without Contrast Normal [facility] CBC W/Diff, Automatedon 09-05 Absolute Lymph 1.52 X10 3/uL Normal 0.83-4.51 [facility] Comment on above: Performed By: #### L 501.5200, L503.6005, L500.4050, L501.2450, L100.0100 ####[facility] [address] [place], [address] Absolute Neut 5.1 X10 3/uL Normal 2.0-7.7 [facility] Comment on above: Performed By: #### L 501.5200, L503.6005, L500.4050, L501.2450, L100.0100 ####[facility] [address] [place], [address] Basophils/100 WBC (Bld) 0.3 % Normal 0-1 [facility] Comment on above: Performed By: #### L 501.5200, L503.6005, L500.4050, L501.2450, L100.0100 ####[facility] [address] [place], [address] Eosinophils/100 WBC (Bld) 3.6 % Normal 0-5 [facility] Comment on above: Performed By: #### L 501.5200, L503.6005, L500.4050, L501.2450, L100.0100 ####[facility] [address] [place], [address] Erythrocyte distribution width (RBC) [Ratio] 15.5 % High 11.6-14.6 [facility] Comment on above: Performed By: #### L 501.5200, L503.6005, L500.4050, L501.2450, L100.0100 ####[facility] [address] [place], [address] Hematocrit (Bld) [Volume fraction] 30.0 % Low 37-47 [facility] Comment on above: Performed By: #### L 501.5200, L503.6005, L500.4050, L501.2450, L100.0100 ####[facility] [address] [place], [address] Hemoglobin (Bld) [Mass/Vol] 9.2 g/dL Low 12.0-15.0 [facility] Comment on above: Performed By: #### L 501.5200, L503.6005, L500.4050, L501.2450, L100.0100 ####[facility] [address] [place], [address] IG% 0.400 Normal 0.0-0.9 [facility] Comment on above: Result Comment: IG% - Immature Granulocytes (promyelocytes, myelocytes andmetamyelocytes) > 1% indicates that a LEFT SHIFT is Present. Performed By: #### L 501.5200, L503.6005, L500.4050, L501.2450, L100.0100 ####[facility] [address] [place], [address] Lymphocytes/100 WBC (Bld) 20.1 % Normal 19-41 [facility] Comment on above: Performed By: #### L 501.5200, L503.6005, L500.4050, L501.2450, L100.0100 ####[facility] [address] [place], [address] MCH (RBC) [Entitic mass] 31.9 pg Normal 27.0-32.0 [facility] Comment on above: Performed By: #### L 501.5200, L503.6005, L500.4050, L501.2450, L100.0100 ####[facility] [address] [place], [address] MCHC (RBC) [Mass/Vol] 30.7 g/dL Low 32-36 [facility] Comment on above: Performed By: #### L 501.5200, L503.6005, L500.4050, L501.2450, L100.0100 ####[facility] [address] [place], [address] MCV (RBC) [Entitic vol] 104.2 fL High 81-99 [facility] Comment on above: Performed By: #### L 501.5200, L503.6005, L500.4050, L501.2450, L100.0100 ####[facility] [address] [place], [address] Monocytes/100 WBC (Bld) 8.7 % Normal 0-10 [facility] Comment on above: Performed By: #### L 501.5200, L503.6005, L500.4050, L501.2450, L100.0100 ####[facility] [address] [place], [address] Neutrophils/100 WBC (Bld) 66.9 % Normal 47-70 [facility] Comment on above: Performed By: #### L 501.5200, L503.6005, L500.4050, L501.2450, L100.0100 ####[facility] [address] [place], [address] Nucleated RBC (Bld) [#/Vol] 0 10*3/uL Normal 0-5 [facility] Comment on above: Performed By: #### L 501.5200, L503.6005, L500.4050, L501.2450, L100.0100 ####[facility] [address] [place], [address] Platelet mean volume (Bld) [Entitic vol] 13.2 fL High 6.2-12.0 [facility] Comment on above: Performed By: #### L 501.5200, L503.6005, L500.4050, L501.2450, L100.0100 ####[facility] [address] [place], [address] Platelets (Bld) [#/Vol] 206 10*3/uL Normal 150-450 [facility] Comment on above: Performed By: #### L 501.5200, L503.6005, L500.4050, L501.2450, L100.0100 ####[facility] [address] [place], [address] RBC (Bld) [#/Vol] 2.88 10*6/uL Low 4.2-5.4 [facility] Comment on above: Performed By: #### L 501.5200, L503.6005, L500.4050, L501.2450, L100.0100 ####[facility] [address] [place], [address] RDW SD 58.2 fl High 35.1-43.9 [facility] Comment on above: Performed By: #### L 501.5200, L503.6005, L500.4050, L501.2450, L100.0100 ####[facility] [address] [place], [address] WBC (Bld) [#/Vol] 7.6 10*3/uL Normal 4.4-11.0 [facility] Comment on above: Performed By: #### L 501.5200, L503.6005, L500.4050, L501.2450, L100.0100 ####[facility] [address] [place], [address] CPK Total, Creatine Kinaseon 09-28-2024 CPK TOTAL 27 U/L Normal 24-195 [facility] Comment on above: Performed By: #### L 501.3620 ####[facility] [address] [place], [address] Carbon dioxide, total [Moles /volume] in Central venous bloodOrdered By: Jhonatan Maxwell on 09-28-2024 CO2 [Moles/Vol] 11.0 mmol/L Low 21.0-32.0 [facility] Chloride assayOrdered By: Howard Maxwell on 09-28-2024 Chloride [Moles/Vol] 113 mmol/L High 98-108 [facility] Comprehensive Metabolic Prof ilon 09-28-2024 Albumin [Mass/Vol] 3.1 g/dL Low 3.4-4.8 [facility] Comment on above: Performed By: #### L 501.5200, L503.6005, L500.4050, L501.2450, L100.0100 ####[facility] [address] [place], [address] Albumin/Globulin [Mass ratio] 1.1 {ratio} Normal 0.9-2.4 [facility] Comment on above: Performed By: #### L 501.5200, L503.6005, L500.4050, L501.2450, L100.0100 ####[facility] [address] [place], [address] ALK PHOS 130 U/L High 35-104 [facility] Comment on above: Performed By: #### L 501.5200, L503.6005, L500.4050, L501.2450, L100.0100 ####[facility] [address] [place], [address] ALT [Catalytic activity/Vol] 351 U/L High <=34 [facility] Comment on above: Performed By: #### L 501.5200, L503.6005, L500.4050, L501.2450, L100.0100 ####[facility] [address] [place], [address] AST [Catalytic activity/Vol] 289 U/L High <=31 [facility] Comment on above: Performed By: #### L 501.5200, L503.6005, L500.4050, L501.2450, L100.0100 ####[facility] [address] [place], [address] Bilirubin [Mass/Vol] 0.20 mg/dL Normal 0.00-1.30 [facility] Comment on above: Performed By: #### L 501.5200, L503.6005, L500.4050, L501.2450, L100.0100 ####[facility] [address] [place], [address] BUN/CRE 26.7 RATIO High 10-20 [facility] Comment on above: Performed By: #### L 501.5200, L503.6005, L500.4050, L501.2450, L100.0100 ####[facility] [address] [place], [address] Calcium [Mass/Vol] 7.9 mg/dL Normal 7.6-11.0 [facility] Comment on above: Performed By: #### L 501.5200, L503.6005, L500.4050, L501.2450, L100.0100 ####[facility] [address] [place], [address] Chloride [Moles/Vol] 113 mmol/L High 98-108 [facility] Comment on above: Performed By: #### L 501.5200, L503.6005, L500.4050, L501.2450, L100.0100 ####[facility] [address] [place], [address] CO2 [Moles/Vol] 11.0 mmol/L Low 21.0-32.0 [facility] Comment on above: Performed By: #### L 501.5200, L503.6005, L500.4050, L501.2450, L100.0100 ####[facility] [address] [place], [address] Creatinine [Mass/Vol] 4.15 mg/dL High 0.70-1.20 [facility] Comment on above: Performed By: #### L 501.5200, L503.6005, L500.4050, L501.2450, L100.0100 ####[facility] [address] [place], [address] GAP 15 Normal 5-15 [facility] Comment on above: Performed By: #### L 501.5200, L503.6005, L500.4050, L501.2450, L100.0100 ####[facility] [address] [place], [address] GFR/1.73 sq M.predicted among non-blacks MDRD (S/P/Bld) [Vol rate/Area] 10 mL/min/{1.73_m2} Low >60 [facility] Comment on above: Result Comment: mL/m in/1.73m2 CKD-EPI Creatinine Equation (2020) Performed By: #### L 501.5200, L503.6005, L500.4050, L501.2450, L100.0100 ####[facility] [address] [place], [address] Globulin (S) [Mass/Vol] 2.7 g/dL Normal 2.2-4.2 [facility] Comment on above: Performed By: #### L 501.5200, L503.6005, L500.4050, L501.2450, L100.0100 ####[facility] [address] [place], [address] Glucose [Mass/Vol] 129 mg/dL High 70-99 [facility] Comment on above: Performed By: #### L 501.5200, L503.6005, L500.4050, L501.2450, L100.0100 ####[facility] [address] [place], [address] Potassium [Moles/Vol] 6.0 mmol/L Invalid Interpretation Code 3.3-5.1 [facility] Comment on above: Result Comment: Crit ical Result(s) Called at: 1844 by: DORYS VU??Results read back by same. Performed By: #### L 501.5200, L503.6005, L500.4050, L501.2450, L100.0100 ####[facility] [address] [place], [address] Sodium [Moles/Vol] 139 mmol/L Normal 133-145 [facility] Comment on above: Performed By: #### L 501.5200, L503.6005, L500.4050, L501.2450, L100.0100 ####[facility] [address] [place], [address] T PROT 5.9 g/dL Normal 5.9-8.4 [facility] Comment on above: Performed By: #### L 501.5200, L503.6005, L500.4050, L501.2450, L100.0100 ####[facility] [address] [place], [place], [id number] Urea nitrogen [Mass/Vol] 111 mg/dL Invalid Interpretation Code 4-19 [facility] Comment on above: Result Comment: Crit ical Result(s) Called at: 1844 by:??DORYS VU Results read back by same. Performed By: #### L 501.5200, L503.6005, L500.4050, L501.2450, L100.0100 ####[facility] [address] [place], [place], [id number] Creatinine, Urine (random)on 09-28-2024 UR CREAT 34.40 mg/dL Normal 28.00-217. 00 [facility] Comment on above: Performed By: #### L 501.1200, L501.5500 ####[facility] [address] [place], [place], [id number] Emergency Department Summary on 09-28-2024 Emergency Department Summary Normal [facility] Eosinophil percentageOrdered By: Jhonatan Maxwell on 09-28-2024 Eosinophils/100 WBC (Bld) 3.6 % 0-5 [facility] Erythrocyte distribution wid th ratioOrdered By: Jhonatan Maxwell on 09-28-2024 Erythrocyte distribution width (RBC) [Ratio] 15.5 % High 11.6-14.6 [facility] Erythrocyte distribution wid th standard deviationOrdered By: Jhonatan Maxwell on 09-28-2024 Erythrocyte distribution width (RBC) [Ratio] 58.2 fl High 35.1-43.9 [facility] Glomerular filtration rate ( GFR) estimation/1.73 sq m using serum, plasma, or whole bOrdered By: Jhonatan Maxwell on 09-28-2024 GFR/1.73 sq M.predicted among non-blacks MDRD (S/P/Bld) [Vol rate/Area] 10 mL/min/{1.73_m2} Low >60 [facility] H AND P Exam - Hospitaliston 09-28-2024 H&P Exam - Hospitalist Normal [facility] Hematocrit Auto (Bld) [Volum e fraction]Ordered By: Jhonatan Maxwell on 09-28-2024 Hematocrit (Bld) [Volume fraction] 30.0 % Low 37-47 [facility] Hemoglobin measurementOrdere d By: Jhonatan Oliviaer on 09-28-2024 Hemoglobin (Bld) [Mass/Vol] 9.2 g/dL Low 12.0-15.0 [facility] Immature granulocytes/100 WB C Auto (Bld)Ordered By: Jhonatan Maxwell on 09-28-2024 Immature granulocytes/100 WBC (Bld) 0.400 % 0.0-0.9 [facility] Ketones Test strip Ql (U)Ord ered By: Jhonatan Alissa on 09-28-2024 Ketones Ql (U) Negative Negative [facility] Kidney and Bladderon 025 Kidney and Bladder Normal [facility] Knee 1 or 2 Viewson 09-29-19 25 Knee 1 or 2 Views Normal [facility] Knee 1 or 2 Views Normal [facility] L499.0042on 09-28-2024 Trop T High Sen Normal <=14 [facility] Comment on above: Result Comment: Erlin jaime via OM: Ordered Performed By: #### L 499.0042 ####[facility] [address] [place], [address] L499.0043on 09-28-2024 Trop T High Sen Normal <=14 [facility] Comment on above: Result Comment: Erlin jaime via OM: Ordered Performed By: #### L 499.0043 ####[facility] [address] [place], [address] L501.4021on 09-28-2024 Trop T High Sen 41 ng/L High <=14 [facility] Comment on above: Performed By: #### L 501.4021 ####[facility] [address] [place], [address] Trop T High Sen 44 ng/L High <=14 [facility] Comment on above: Performed By: #### L 501.4021 ####[facility] [address] [place], [address] Lactic Acidon 09-28-2024 Lactate [Moles/Vol] mmol/L Normal 0.0-2.0 [facility] Comment on above: Order Comment: Y Performed By: #### L 501.5200, L503.6005, L500.4050, L501.2450, L100.0100 ####[facility] [address] [place], [address] Lipaseon 09-28-2024 Lipase [Catalytic activity/Vol] 54 U/L Normal 13-75 [facility] Comment on above: Result Comment: Reinaldo patel note:LIPASE revised reference range effective 22.New Lipase methodology. Expected to produce lower valuesthan the previous assay method.NEW Reference Range: 13 - 75 U/L Performed By: #### L 501.5200, L503.6005, L500.4050, L501.2450, L100.0100 ####[facility] [address] [place], [address] MCV (mean corpuscular volume ) determinationOrdered By: Jhonatan Maxwell on 09-28-2024 MCV (RBC) [Entitic vol] 104.2 fL High 81-99 [facility] Magnesiumon 09-28-2024 Magnesium [Mass/Vol] 3.1 mg/dL High 1.5-2.2 [facility] Comment on above: Performed By: #### L 501.5200, L503.6005, L500.4050, L501.2450, L100.0100 ####[facility] [address] [place], [address] Magnesium measurement (mass/ volume)Ordered By: Jhonatan Maxwell on 09-28-2024 Magnesium (Unsp spec) [Mass/Vol] 3.1 mg/dL High 1.5-2.2 [facility] Mean corpuscular hemoglobin (MCH) determinationOrdered By: Jhonatan Maxwell on 09-28-2024 MCH (RBC) [Entitic mass] 31.9 pg 27.0-32.0 [facility] Monocyte percentageOrdered B y: Jhonatan Maxwell on 09-28-2024 Monocytes/100 WBC (Bld) 8.7 % 0-10 [facility] Mucus LM Ql (Urine sed)Order ed By: Jhonatan Maxwell on 09-28-2024 Mucus Ql (Urine sed) 0 SEEN /hpf [facility] Neutrophil percentageOrdered By: Jhonatan Maxwell on 09-28-2024 Neutrophils/100 WBC (Bld) 66.9 % 47-70 [facility] Nitrite Test strip Ql (U)Ord ered By: Jhonatan Maxwell on 09-28-2024 Nitrite Ql (U) Negative Negative [facility] No Panel InformationOrdered By: Jhonatan Maxwell on 09-28-2024 289 U/L High <32 [facility] Platelet countOrdered By: Howard Maxwell on 09-28-2024 Platelets (Bld) [#/Vol] 206 10*3/uL 150-450 [facility] Potassium measurement (mass/ volume)Ordered By: Jhonatan Maxwell on 09-28-2024 Potassium (Unsp spec) [Mass/Vol] 6.0 mmol/L High 3.3-5.1 [facility] Protein Test strip Ql (U)Ord ered By: Jhonatan Maxwell on 09-28-2024 Protein Ql (U) 15 mg/dl High Negative [facility] RBC Auto (Bld) [#/Vol]Ordere d By: Jhonatan Maxwell on 09-28-2024 RBC (Bld) [#/Vol] 2.88 10*6/uL Low 4.2-5.4 [facility] Random urine creatinine farheen urement (mass/volume)Ordered By: Michelle Gallardo on 09-28-2024 Creatinine Unsp time (U) [Mass/Vol] 34.40 mg/dL 28.00-217. 00 [facility] Serum creatinine measurement (mass/volume)Ordered By: Jhonatan Maxwell on 09-28-2024 Creatinine [Mass/Vol] 4.15 mg/dL High 0.70-1.20 [facility] Serum globulin measurementOr dered By: Jhonatan Maxwell on 09-28-2024 Globulin (S) [Mass/Vol] 2.7 g/dL 2.2-4.2 [facility] Serum glucose measurement (m ass/volume)Ordered By: Jhonatan Maxwell on 09-28-2024 Glucose [Mass/Vol] 129 mg/dL High 70-99 [facility] Serum or plasma alanine huertas otransferase (ALT) measurementOrdered By: Jhonatan Maxwell on 09-28-2024 ALT [Catalytic activity/Vol] 351 U/L High <35 [facility] Serum or plasma albumin farheen urement (mass/volume)Ordered By: Jhonatan Maxwell on 09-28-2024 Albumin [Mass/Vol] 3.1 g/dL Low 3.4-4.8 [facility] Serum or plasma albumin/glob ulin mass ratioOrdered By: Jhonatan Maxwell on 09-28-2024 Albumin/Globulin [Mass ratio] 1.1 {ratio} 0.9-2.4 [facility] Serum or plasma alkaline mariya sphatase measurementOrdered By: Jhonatan Maxwell on 09-28-2024 ALP [Catalytic activity/Vol] 130 U/L High 35-104 [facility] Serum or plasma calcium farheen urement (mass/volume)Ordered By: Jhonatan Maxwell on 09-28-2024 Calcium [Mass/Vol] 7.9 mg/dL 7.6-11.0 [facility] Serum or plasma creatine kin ase activityOrdered By: Laurence Zamora on 09-28-2024 CK [Catalytic activity/Vol] 27 U/L 24-195 [facility] Serum or plasma urea nitroge n measurement (mass/volume)Ordered By: Jhonatan Maxwell on 09-28-2024 Urea nitrogen [Mass/Vol] 111 mg/dL High 4-19 [facility] Sodium levelOrdered By: Deuce Maxwell on 09-28-2024 Sodium [Moles/Vol] 139 mmol/L 133-145 [facility] Squamous epithelial cells de tection in urine sediment by light microscopyOrdered By: Jhonatan Maxwell on 09-28-2024 Epithelial cells.squamous LM Ql (Urine sed) 0-5 SEEN /hpf 5-10 [facility] Total proteinOrdered By: Al Maxwell on 09-28-2024 Protein [Mass/Vol] 5.9 g/dL 5.9-8.4 [facility] Troponin T.cardiac [Mass/vol ume] in Serum or Plasma by High sensitivity methodOrdered By: Michelle Gallardo on 09-28-2024 Troponin T.cardiac High sensitivity method [Mass/Vol] 41 ng/L High <14 [facility] Troponin T.cardiac [Mass/vol ume] in Serum or Plasma by High sensitivity methodOrdered By: Jhonatan Maxwell on 09-28-2024 Troponin T.cardiac High sensitivity method [Mass/Vol] 44 ng/L High <14 [facility] Urinalysis, Completeon 09-28 EPI,SQUAMOUS 0-5 SEEN Normal 5-10 [facility] Comment on above: Order Comment: CLEAN CATCH Performed By: #### L 400.0001 ####[facility] [address] [place] [address] RBC 0-5 SEEN Normal 0-5 [facility] Comment on above: Order Comment: CLEAN CATCH Performed By: #### L 400.0001 ####[facility] [address] [place] [address] BACTERIA 3+ /hpf Normal None Seen [facility] Comment on above: Order Comment: CLEAN CATCH Performed By: #### L 400.0001 ####[facility] [address] [place], [address] WBC >100 SEEN Normal 0-5 [facility] Comment on above: Order Comment: CLEAN CATCH Performed By: #### L 400.0001 ####[facility] [address] [facility] [address] Mucus Ql (Urine sed) 0 SEEN Normal [facility] Comment on above: Order Comment: CLEAN CATCH Performed By: #### L 400.0001 ####[facility] [address] [place], [address] Urine Sodiumon 09-28-2024 Sodium (U) [Moles/Vol] 79 mmol/L Normal Not Establ. [facility] Comment on above: Performed By: #### L 501.1200, L501.5500 ####[facility] [address] [place], [address] Urine clarityOrdered By: Al Maxwell on 09-28-2024 Clarity (U) Turbid Clear [facility] Urine color determinationOrd ered By: Jhonatan Maxwell on 09-28-2024 Color (U) Straw Yellow [facility] Urine glucose detectionOrder ed By: Jhonatan Maxwell on 09-28-2024 Glucose Ql (U) Normal mg/dl Normal [facility] Urine leukocyte esterase det ection by dipstickOrdered By: Jhonatan Maxwell on 09-28-2024 Leukocyte esterase Test strip Ql (U) 500 /ul High Negative [facility] Urine pHOrdered By: Jhonatan donahue on 09-28-2024 pH (U) 6.0 [pH] 5.0 - 8.0 [facility] Urine sediment bacteria coun t by microscopy (number/high power field)Ordered By: Jhnoatan Maxwell on 09-28-2024 Bacteria LM.HPF (Urine sed) [#/Area] 3 /[HPF] None Seen [facility] Urine sodium measurement (mo les/volume)Ordered By: Michelle Gallardo on 09-28-2024 Sodium (U) [Moles/Vol] 79 mmol/L Not Establ. [facility] Urine specific gravity measu rementOrdered By: Jhonatan Maxwell on 09-28-2024 Specific gravity (U) [Rel density] 1.015 1.002-1.03 0 [facility] Urine urobilinogen measureme ntOrdered By: Jhonatan Maxwell on 09-28-2024 Urobilinogen Ql (U) Normal mg/dl Normal [facility] White blood cell (WBC) count Ordered By: Jhonatan Maxwell on 09-28-2024 WBC (Bld) [#/Vol] 7.6 10*3/uL 4.4-11.0 [facility] White blood cell countOrdere d By: Jhonatan Maxwell on 09-28-2024 White blood cell count >100 SEEN /hpf 0-5 [facility] CNOVon 09-22-2024 CNOV Office Visit (FAMPWS ) MARI LOPEZ ([id number]) 1940 F Date Time Provider Department 09/22/24 [...] CONDYLEANDPLATU MEDIALANDLAT COMPARTMENTS 1990 bilateral total knee s([place]) ARTHRP KNE CONDYLEANDPLATU MEDIALANDLAT COMPARTMENTS 10/24/2004 bilateral [...] shoulder. Dr. Klaus Omalley with [facility] Family History FAMILY HISTORY Problem Relation [...] daily. T (more content not included)... Normal [facility] CBC panel Auto (Bld)on 09-15 Erythrocyte distribution width (RBC) [Ratio] 15.7 % High 11.5-15.0 [facility] Comment on above: Order Comment: Speci men Type: BLOOD SPECIMENOrdering Facility: [facility] Address: [address] [place] [address] Performed By: #### 5 8410-2 ####[facility] [id number] [place] [address] [place] Hematocrit (Bld) [Volume fraction] 32.9 % Low 36.0-46.0 [facility] Comment on above: Order Comment: Speci men Type: BLOOD SPECIMENOrdering Facility: [facility] Address: [address] [place] [address] Performed By: #### 5 8410-2 ####[facility] [id number] [place] [address] [place] Hemoglobin (Bld) [Mass/Vol] 9.9 g/dL Low 11.5-15.5 [facility] Comment on above: Order Comment: Speci men Type: BLOOD SPECIMENOrdering Facility: [facility] Address: [address] [place] [address] Performed By: #### 5 8410-2 ####[facility] [id number] [place] [address] [place] MCH (RBC) [Entitic mass] 32.0 pg Normal 26.0-34.0 [facility] Comment on above: Order Comment: Speci men Type: BLOOD SPECIMENOrdering Facility: [facility] Address: [address] [place] [place] [address] Performed By: #### 5 8410-2 ####[facility] [id number] [place] [address] [place] MCHC (RBC) [Mass/Vol] 30.1 g/dL Low 30.5-36.0 [facility] Comment on above: Order Comment: Speci men Type: BLOOD SPECIMENOrdering Facility: [facility] Address: [address] [place] [address] Performed By: #### 5 8410-2 ####[facility] [id number] [place] [address] [place] MCV (RBC) [Entitic vol] 106.5 fL High 80.0-100.0 [facility] Comment on above: Order Comment: Speci men Type: BLOOD SPECIMENOrdering Facility: [facility] Address: [address] [place] [address] Performed By: #### 5 8410-2 ####[facility] [id number] [place] [address] [place] Nucleated RBC (Bld) [#/Vol] 10*3/uL Normal <0.01 [facility] Comment on above: Order Comment: Speci men Type: BLOOD SPECIMENOrdering Facility: [facility] Address: [address] [place] [address] Performed By: #### 5 8410-2 ####[facility] [id number] [place] [address] [place] Platelet mean volume (Bld) [Entitic vol] 13.9 fL High 9.0-12.7 [facility] Comment on above: Order Comment: Speci men Type: BLOOD SPECIMENOrdering Facility: [facility] Address: [address] [place] [address] Performed By: #### 5 8410-2 ####[facility] [id number] [place] [address] [place] Platelets (Bld) [#/Vol] 248 10*3/uL Normal 150-400 [facility] Comment on above: Order Comment: Speci men Type: BLOOD SPECIMENOrdering Facility: [facility] Address: [address] [place] [address] Performed By: #### 5 8410-2 ####[facility] [id number] [place] [address] [place] RBC (Bld) [#/Vol] 3.09 10*6/uL Low 3.90-5.20 [facility] Comment on above: Order Comment: Speci men Type: BLOOD SPECIMENOrdering Facility: [facility] Address: [address] [place] [address] Performed By: #### 5 8410-2 ####[facility] [id number] [place] [address] [place] WBC (Bld) [#/Vol] 7.94 10*3/uL Normal 3.70-11.00 [facility] Comment on above: Order Comment: Speci men Type: BLOOD SPECIMENOrdering Facility: [facility] Address: [address] [place] [address] Performed By: #### 5 8410-2 ####[facility] [id number] [place] [id number] [place] CNOVon 09-15-2024 CNOV Office Visit (FAMPWS ) MARI LOPEZ ([id number]) 1940 F Date Time Provider Department 09/15/24 1:40 PM MICHAEL CARTER During your visit today, we recorded the following information about you: Pulse Blood pressure Weight 72/minute 112/67 105.7 kg Michael Carter, EMPLOYMENT PROGRAM REPRESENTATIVE.SAGGER MAKER 09/15/2024 2:04 PM Signed Chief Complaint Patient [...] and thrombophlebitis of femoral vein (deep) (superficial) ([facility]) Unspecified sleep apnea Previous Surgical History PAST SURGICAL HISTORY Procedure Laterality Date ANESTHESIA HERNIA REPAIR LOWER ABDOMEN NOS 04/2004,05/11 gortex put in on 05/11 then taken out06/08 ARTHRP KNE CONDYLEANDPLATU MEDIALANDLAT COMPARTMENTS 1990 bilateral total knee s([place]) ARTHRP KNE CONDYLEANDPLATU MEDIALANDLAT COMPARTMENTS 10/24/2004 bilateral [...] shoulder. Dr. Klaus Omalley with [facility] Family History FAMILY HISTORY Problem Relation [...] COMPOUNDED PRESCRIPTI (more content not included)... Normal [facility] Comprehensive metabolic 2000 panelon 09-15-2024 Albumin [Mass/Vol] 3.4 g/dL Low 3.9-4.9 [facility] Comment on above: Order Comment: Speci men Type: BLOOD SPECIMENOrdering Facility: [facility] Address: [address] [place] [address] Performed By: #### 2 4323-8, 50775-4 ####[facility] [id number] [place] [address] [place] ALP [Catalytic activity/Vol] 114 U/L Normal 34-123 [facility] Comment on above: Order Comment: Speci men Type: BLOOD SPECIMENOrdering Facility: [facility] Address: [address] [place] [address] Performed By: #### 2 4323-8, 27609-6 ####[facility] [id number] [place] [id number] [place] ALT [Catalytic activity/Vol] 75 U/L High 7-38 [facility] Comment on above: Order Comment: Speci men Type: BLOOD SPECIMENOrdering Facility: [facility] Address: [address] [place] [address] Performed By: #### 2 4323-8, 33675-0 ####[facility] [id number] [place] [id number] [place] Anion gap [Moles/Vol] 13 mmol/L Normal 8-15 [facility] Comment on above: Order Comment: Speci men Type: BLOOD SPECIMENOrdering Facility: [facility] Address: [address] [place] [address] Performed By: #### 2 4323-8, 41868-7 ####[facility] [id number] [place] [address] [place] AST [Catalytic activity/Vol] 85 U/L High 13-35 [facility] Comment on above: Order Comment: Speci men Type: BLOOD SPECIMENOrdering Facility: [facility] Address: [address] [place] [address] Performed By: #### 2 4323-8, 87017-3 ####[facility] [id number] [place] [address] [place] Bilirubin [Mass/Vol] 0.2 mg/dL Normal 0.2-1.3 [facility] Comment on above: Order Comment: Speci men Type: BLOOD SPECIMENOrdering Facility: [facility] Address: [address] [place] [address] Performed By: #### 2 4323-8, 36234-5 ####[facility] [id number] [place] [id number] [place] Calcium [Mass/Vol] 8.8 mg/dL Normal 8.5-10.2 [facility] Comment on above: Order Comment: Speci men Type: BLOOD SPECIMENOrdering Facility: [facility] Address: [address] [place] [address] Performed By: #### 2 4323-8, 78635-3 ####[facility] [id number] [facility] [place] [id number] [place] Chloride [Moles/Vol] 111 mmol/L High 98-107 [facility] Comment on above: Order Comment: Speci men Type: BLOOD SPECIMENOrdering Facility: [facility] Address: [address] [place] [address] Performed By: #### 2 4323-8, 87697-5 ####[facility] [id number] [place] [id number] [place] CO2 [Moles/Vol] 18 mmol/L Low 22-30 [facility] Comment on above: Order Comment: Speci men Type: BLOOD SPECIMENOrdering Facility: [facility] Address: [address] [place] [address] Performed By: #### 2 4323-8, 71732-3 ####[facility] [id number] [place] [address] [place] Creatinine [Mass/Vol] 1.93 mg/dL High 0.58-0.96 [facility] Comment on above: Order Comment: Speci men Type: BLOOD SPECIMENOrdering Facility: [facility] Address: [address] [place] [address] Performed By: #### 2 4323-8, 30190-4 ####[facility] [id number] [address] [place] Creatinine and Glomerular filtration rate.predicted panel (S/P/Bld) 26 mL/min/1.73m??? Low >=60 [facility] Comment on above: Order Comment: Speci men Type: BLOOD SPECIMENOrdering Facility: [facility] Address: [address] [place] [address] Result Comment: Kayy mated Glomerular Filtration Rate [...] reflect actual GFR. Performed By: #### 2 4323-8, 63773-3 ####[facility] [id number] [place] [id number] [place] Glucose [Mass/Vol] 85 mg/dL Normal 74-99 [facility] Comment on above: Order Comment: Speci men Type: BLOOD SPECIMENOrdering Facility: [facility] Address: [address] [place] [address] Result Comment: The [place] Diabetes Association (ADA) provides guidance for cutoff [...] Standards of Medical Care in Diabetes 2016, [employer] Diabetes Association. Diabetes Care. 2016.39(Suppl 1). Performed By: #### 2 4323-8, 06900-2 ####[facility] [id number] [place] [address] [place] Potassium [Moles/Vol] 5.6 mmol/L High 3.7-5.1 [facility] Comment on above: Order Comment: Speci men Type: BLOOD SPECIMENOrdering Facility: [facility] Address: [address] [place] [address] Performed By: #### 2 4323-8, 40058-8 ####[facility] [id number] [place] [id number] [place] Protein [Mass/Vol] 6.2 g/dL Low 6.3-8.0 [facility] Comment on above: Order Comment: Speci men Type: BLOOD SPECIMENOrdering Facility: [facility] Address: [address] [place] [address] Performed By: #### 2 4323-8, 38833-2 ####[facility] [id number] [place] [address] [place] Sodium [Moles/Vol] 142 mmol/L Normal 136-144 [facility] Comment on above: Order Comment: Speci men Type: BLOOD SPECIMENOrdering Facility: [facility] Address: [address] [place] [address] Performed By: #### 2 4323-8, 47239-6 ####[facility] [id number] [place] [address] [place] Urea nitrogen [Mass/Vol] 49 mg/dL High 7-21 [facility] Comment on above: Order Comment: Speci men Type: BLOOD SPECIMENOrdering Facility: [facility] Address: [address] [place] [address] Performed By: #### 2 4323-8, 83852-4 ####[facility] [id number] [address] [place] NT-proBNP [facility] 09-15 Natriuretic peptide.B prohormone N-Terminal [Mass/Vol] 783 pg/mL High <450 [facility] Comment on above: Order Comment: Speci men Type: BLOOD SPECIMENOrdering Facility: [facility] Address: [address] [place] [address] Performed By: #### 2 4323-8, 95291-5 ####[facility] [id number] [place] [id number] [place] 09-14-2024 CNPN Telephone (FAMWS) MARI LOPEZ ([id number]) 1940 F Date Time Provider Department 09/14/24 LIZY CAPONE During your visit today, we [...] appointment times. Pt scheduled with Michael Carter COOKER MECHANIC. Analia Gracia RN Allergies As of Date: 09/14/2024 Noted Allergy Reaction BACTRIM (SULFAMETHOXAZOLE-TRIMETH*0 07/23/2016 4 - Hives Comments: Blisters: head to toe IBUPROFEN 11/08/2015 2 - Rash KEFZOL (CEFAZOLIN SODIUM) 08/09/2018 4 - Hives PEANUT 03/31/2023 10 - Anaphylaxis SULFA (SULFONAMIDE ANTIBIOTICS) 07/23/2016 4 - Hives 16 - Unknown Comments: Blisters: head to toe Date Reviewed: 09/04/2024 Reviewed by: Deacon Valdez, EMPLOYMENT PROGRAM REPRESENTATIVE.SAGGER MAKER - Fully Assessed Reason for Visit: Results [...] [1003] 05/07/2005 07/12/2021 INJURY TRUNK SITE NEC [[id number]] 01/16/2006 07/01/2007 Anemia in chronic kidney disease [...] [M47.816] 12/25/2021 (more content not included)... Normal [facility] [place] 09-12-2024 CNPN Telephone (FAMPWS) MARI LOPEZ ([id number]) 1940 F Date Time Provider Department 09/12/24 LIZY CAPONE FAMPWS During your visit today, [...] Date Reviewed: 09/04/2024 Reviewed by: Deacon Valdez APRN.SAGGER MAKER - Fully Assessed Reason for Visit: Patient Question [0817] Orders [681] Primary Visit Diagnosis:Subacute cough [R05.2] Order(s):XR CHEST 2V FRONTAL/LAT [[id number]] Order #: [id number] FUTURE Prescriptions as of 09/12/2024 - doxycycline [...] [1003] 05/07/2005 07/12/2021 INJURY TRUNK SITE NEC [[id number]] 01/16/2006 07/01/2007 Anemia in chronic kidney disease [...] back pa (more content not included)... Normal [facility] XR CHEST 2V FRONTAL/LATon XR CHEST [...] clips are again noted. IMPRESSION: See result. Loftsman/Woman: CHEIKH Transcribe Date/Time: Sep 14 2024 12:53A Dictated by : LIBAN SALCEDO MD This examination was interpreted and the report reviewed and electronically signed by: LIBAN SALCEDO MD on Sep 14 2024 12:55AM EST [id number] Normal [facility] 09-07-2024 CNPN Telephone (FAMPWS) MARI LOPEZ ([id number]) 1940 F Date Time Provider Department 09/07/24 LIZY CAPONE FAMWS During your visit today, we recorded the following information about you: Josselin Baxter, KEVIN 09/07/2024 1:57 PM Signed Dorys with [facility] calling with pt update for PCP. Patient was evaluated in [facility] on 09/04/24 and was was ordered doxycycline and benzonatate for lower respiratory infection. At that time, [facility] provider did consider sending pt to ER, but after further assessment and strict precautions explained during visit, patient was able to return home. Dorys would like PCP to know that patient still has course crackles in lower lung areas, more in the right than left, and having green sputum production. No severe sx's noted. Pt is to complete her antibiotic tomorrow. Pt's NOV is scheduled with Dr. Capone on 09/22. Please call Nurse Dorys if PCP would aleyda to extend treatment or for any other orders. [phone]. KEVIN Escobar Mark D, MD 09/08/2024 3:55 PM Signed OK for continuation of both medications; Rxs sent to pharmacy MD Samia Masters Amanda, RN 09/08/2024 4:04 PM Signed Dorys with [facility] and Pt called and notified of providers [...] Date Reviewed: 09/04/2024 Reviewed by: Deacon Valdez APRN.SAGGER MAKER - Fully Assessed Reason for Visit: Patient [...] NEC [IMO0 (more content not included)... Normal [facility] H AND P Exam - Surgicalon H&P Exam - Surgical [facility] MR/POSTOP.ANEon 09-06-2024 MR/POSTOP.ANE [facility] MR/YIXIQEHA2hh 09-06-2024 MR/POSTOPAN2 [facility] Operative Reporton Operative Report [facility] CNPNon 09-05-2024 [facility]OPE[facility] ([id number]) 1940 F Date Time Provider Department 09/05/24 [facility] CAP[facility] During your visit today, we recorded the [...] to stay on will need refilled to [facility]. Asking for this to be done BHUMIKA as she is almost out of medications. MANJEET Reina Mark D, MD 09/05/2024 2:36 PM Signed Med list reviewed and prescriptions sent to [facility]. May stop Eliquis and Protonix MD Ziyad Masters Kathryn, MA 09/05/2024 3:15 PM Signed Pt notified and voiced understanding. MANJEET Reina Sherrie, RN 09/07/2024 1:43 PM Signed Dorys with [facility] calling. Updated of eliquis and pantoprazole being [...] toe Date Reviewed: 09/04/2024 Reviewed by: Deacon Valdez, NANCI.SAGGER MAKER - Fully Assessed Reason for Visit: Medication Question [7038] Primary Visit Diagnosis:Anemia in chronic kidney disease, unspecified CKD stage [N18.9, D63.1] Other Visit Diagnoses:Leg swelling [M79.89] Essential hypertension, benign [I10] Iron deficiency anemia due to chronic blood loss [D50.0] Hypothyroidism, acquired [E03.9] Seizures (HCC) [R56.9] Insomnia, unspecified type [G47.00] CKD (chronic kidney disease) stage 4, GFR 15-29 ml/min ([facility]) [N18.4] Hyperlipidemia LDL goal <100 [E78.5] Chronic [...] polyethylene glycol (more content not included)... Normal [facility] Neurology Visit Reporton Neurology Visit Report Normal [facility] CNOVon 09-04-2024 CNOV Office Visit (UCWSTR ) MARI LOPEZ ([id number]) 1940 F Date Time Provider Department 09/04/24 2:30 PM DEACON VALDEZ [facility] During your visit today, we recorded the following information about you: Temperature Pulse Respiration Blood pressure 98.5 degrees 74/minute 18/minute 128/76 Weight 105.7 kg Deacon Valdez APRN.SAGGER MAKER 09/04/2024 2:51 PM Signed This note was created using LOOKCASTriter. Subjective Mari Lopez is a 84 year old female. HPI Patient presents today complaining of some shortness of breath and wheezing which has been ongoing for the last 2 weeks. She denies any fevers. She notes that she was recently discharged from [facility] after having been hospitalized for sepsis. She [...] - BENZONATATE 100 MG CAPSULE Deacon Valdez APRN.SAGGER MAKER Referring Provider: SELF [200] Allergies As of Date: 09/04/2024 Noted Allergy Reaction BACTRIM (SULFAMETHOXAZOLE-TRIMETH*0 07/23/2016 4 - Hives Comments: Blisters: head to toe IBUPROFEN 11/08/2015 2 - Rash KEFZOL (CEFAZOLIN SODIUM) 08/09/2018 4 - Hives PEANUT 03/31/2023 10 - Anaphylaxis SULFA (SULFONAMIDE ANTIBIOTICS) 07/23/2016 4 - Hives 16 - Unknown Comments: Blisters: head to toe Date Reviewed: 09/04/2024 Reviewed by: Deacon Valdez, NANCI.SAGGER MAKER - Fully Assessed Reason for Visit: Cough [...] by mout (more content not included)... Normal [facility] MR/PAT.Waqar 09-02-2024 MR/PAT.KENTRELL [facility] MR/PAT.KENTRELL [facility] [place] 08-30-2024 CNPN Telephone [facility] MARI LOPEZ ([id number]) 1940 F Date Time Provider Department 08/30/24 LIZY CAPONEFARRUKH During your visit today, we recorded the following information about you: Lora Najera RN 08/30/2024 10:39 AM Signed Lora from [facility] calls and reports that patient started with home health services. Lora makes note of a couple different things: Patient is on iron tablets which is contradicted for someone with peanut allergies. Patient has been taking medication with no issues. Patient had discharged from [facility] with oxycodone orders of 5 mg every [...] left a detailed voicemail notifying Lora from [facility] of providers message. Clinic phone number was [...] [K43.9] 03/26 (more content not included)... Normal [facility] [place] 08-25-2024 CJN Telephone (FAMPWS) MARI LOPEZ ([id number]) 1940 F Date Time Provider Department 08/25/24 LIZY CAPONE FAMPWS During your visit today, we recorded the following information about you: Minna Hinton, RN 08/25/2024 12:31 PM Signed Miryam intake coordinatior with [facility] calling in to say pt is being discharged from [facility] today. She has been referred to for [...] [1003] 05/07/2005 07/12/2021 INJURY TRUNK SITE NEC [[id number]] 01/16/2006 07/01/2007 Anemia in chronic kidney disease [...] spondylosis [M47 (more content not included)... [facility] MARI LOPE[facility] ([id number]) 1940 F Date Time Provider Department 08/25/24 LIZY CAPONE FAMPWS During your visit today, we recorded the following information about you: Josselin Baxter RN 08/25/2024 9:33 AM Signed Krystle Villarreal CNP a provider at [facility] is calling to state that she will [...] [1003] 05/07/2005 07/12/2021 INJURY TRUNK SITE NEC [[id number]] 01/16/2006 07/01/2007 Anemia in chronic kidney disease [...] disease, unspecif*08/22/2024 (more content not included)... Normal [facility] Absolute lymphocyte countOrd ered By: Gustavo Castorena on 08-22-2024 Lymphocytes Auto (Unsp spec) [#/Vol] 1.73 10*3/uL 0.83-4.51 [facility] Anion gap in Serum or Plasma Ordered By: Gustavo Castorena on 08-22-2024 Anion gap [Moles/Vol] 12 mmol/L 5-15 [facility] Automated lymphocyte count a s percentage of total leukocytesOrdered By: Gustavo Castorena on 08-22-2024 Lymphocytes/100 WBC Auto (Unsp spec) 34.5 % [facility] BUN/creatinine ratioOrdered By: Gustavo Brownleeevelynechela on 08-22-2024 Urea nitrogen/Creatinine [Mass ratio] 20.6 mg/mg High 10-20 [facility] Bacteria Ur Culton Bacteria identified Cx Nom [...] , Intermediate >32 , Resistant >64 Abnormal [facility] Comment on above: Performed By: #### 6 30-4, 72452-5 ####[facility] [id number] [address] [place] Basophil percentageOrdered B y: Gustavo Castorena on 08-22-2024 Basophils/100 WBC (Bld) 0.6 % 0-1 [facility] CBC panel Auto (Bld)on 08-22 Erythrocyte distribution width (RBC) [Ratio] 16.4 % High 11.5 - 15.0 % [facility] Hematocrit (Bld) [Volume fraction] 31.1 % Low 36.0 - 46.0 % [facility] Hemoglobin (Bld) [Mass/Vol] 9.4 g/dL Low 11.5 - 15.5 g/dL [facility] Interpretation and review of laboratory results Abnormal [facility] MCH (RBC) [Entitic mass] 31.4 pg 26.0 - 34.0 pg [facility] MCHC (RBC) [Mass/Vol] 30.2 g/dL Low 30.5 - 36.0 g/dL [facility] MCV (RBC) [Entitic vol] 104 fL High 80.0 - 100.0 fL [facility] Nucleated RBC (Bld) [#/Vol] NINF [facility] Platelet mean volume (Bld) [Entitic vol] 13.1 fL High 9.0 - 12.7 fL [facility] Platelets (Bld) [#/Vol] 233 10*3/uL [facility] RBC (Bld) [#/Vol] 2.99 10*6/uL Low 3.90 - 5.20 m/uL [facility] WBC (Bld) [#/Vol] 7.12 10*3/uL [facility] Erythrocyte distribution width (RBC) [Ratio] 16.4 % High 11.5-15.0 [facility] Comment on above: Order Comment: Speci men Type: BLOOD SPECIMENOrdering Facility: [facility] Address: [address] [place] [address] Performed By: #### 5 8410-2 ####[facility] [id number] [place] [address] [place] Hematocrit (Bld) [Volume fraction] 31.1 % Low 36.0-46.0 [facility] Comment on above: Order Comment: Speci men Type: BLOOD SPECIMENOrdering Facility: [facility] Address: [address] [place] [address] Performed By: #### 5 8410-2 ####[facility] [id number] [place] [address] [place] Hemoglobin (Bld) [Mass/Vol] 9.4 g/dL Low 11.5-15.5 [facility] Comment on above: Order Comment: Speci men Type: BLOOD SPECIMENOrdering Facility: [facility] Address: [address] [place] [address] Performed By: #### 5 8410-2 ####[facility] [id number] [place] [address] [place] MCH (RBC) [Entitic mass] 31.4 pg Normal 26.0-34.0 [facility] Comment on above: Order Comment: Speci men Type: BLOOD SPECIMENOrdering Facility: [facility] Address: [address] [place] [address] Performed By: #### 5 8410-2 ####[facility] [id number] [place] [address] [place] MCHC (RBC) [Mass/Vol] 30.2 g/dL Low 30.5-36.0 [facility] Comment on above: Order Comment: Speci men Type: BLOOD SPECIMENOrdering Facility: [facility] Address: [address] [place] [address] Performed By: #### 5 8410-2 ####[facility] [id number] [place] [address] [place] MCV (RBC) [Entitic vol] 104.0 fL High 80.0-100.0 [facility] Comment on above: Order Comment: Speci men Type: BLOOD SPECIMENOrdering Facility: [facility] Address: [address] [place] [address] Performed By: #### 5 8410-2 ####[facility] [id number] [place] [address] [place] Nucleated RBC (Bld) [#/Vol] 10*3/uL Normal <0.01 [facility] Comment on above: Order Comment: Speci men Type: BLOOD SPECIMENOrdering Facility: [facility] Address: [address] [place] [address] Performed By: #### 5 8410-2 ####[facility] [id number] [place] [address] [place] Platelet mean volume (Bld) [Entitic vol] 13.1 fL High 9.0-12.7 [facility] Comment on above: Order Comment: Speci men Type: BLOOD SPECIMENOrdering Facility: [facility] Address: [address] [place] [address] Performed By: #### 5 8410-2 ####[facility] [id number] [place] [address] [place] Platelets (Bld) [#/Vol] 233 10*3/uL Normal 150-400 [facility] Comment on above: Order Comment: Speci men Type: BLOOD SPECIMENOrdering Facility: [facility] Address: [address] [place] [address] Performed By: #### 5 8410-2 ####[facility] [id number] [place] [address] [place] RBC (Bld) [#/Vol] 2.99 10*6/uL Low 3.90-5.20 [facility] Comment on above: Order Comment: Speci men Type: BLOOD SPECIMENOrdering Facility: [facility] Address: [address] [place] [address] Performed By: #### 5 8410-2 ####[facility] [id number] [place] [address] [place] WBC (Bld) [#/Vol] 7.12 10*3/uL Normal 3.70-11.00 [facility] Comment on above: Order Comment: Speci men Type: BLOOD SPECIMENOrdering Facility: [facility] Address: [address] [place] [address] Performed By: #### 5 8410-2 ####[facility] [id number] [place] [address] [place] CNOVon 08-22-2024 CNOV Office Visit (FAMPWS ) MARI LOPEZ ([id number]) 1940 F Date Time Provider Department 08/22/24 1:20 PM LIZY CAPONE FAMPWS During your visit today, [...] pt was re-admitted back in April into [facility] ICU for sepsis and kidney failure. Pt was intubated while admitted. She was then life flighted to [facility] ICU to see Neurology on 05/04/24 and discharged on 05/18/24 to a Rehab Facility, staying until 06/10/24. Pt was then d/c to [place] rehab on 06/10/24 and has not yet [...] of seizure x 2 during admission at [facility]. Pt notes she had 3 seizures while her flight to [facility]. Is scheduled with [facility] in September. Pt reports today that she is supposed to be on medication for 6 months. Nephro - Follows with Dr. Casper. Hx of CKD. When in the hospital pt had kidney failure. Did not require dialysis. Cardio - Follows with [facility], Dr. Jackson. Hx of heart failure, and PE. Pt takes Eliquis 5 mg bid, ASA 81 mg once daily, Zestoretic 10-12.5 mg once daily, Lasix 40 mg once daily and Toprol XL 50 mg once daily. Pulm - Hx of pulmonary issues. Schedule with [facility], did see [facility]. Anemia - [...] reports an incident that occurred while at [place], where she was trying to get into her car, Therapist did not lock her wheelchair. She hit her right lower leg on the running board of her car causing a hematoma. Following with Dr. Lomax, has had to have area cleaned out a couple of times. Wound Center put in an order for [facility] to change dressing 3x per [...] CONDYLEANDPLATU MEDIALANDLAT COMPARTMENTS 1990 bilateral total knee s([place]) ARTHRP KNE CONDYLEANDPLATU MEDIALANDLAT COMPARTMENTS 10/24/2004 bilateral [...] shoulder. Dr. Klaus Omalley with [facility] Family History FAMILY HISTORY Problem Relation Age of Onset Cancer Mother ovarian Patient Allergies ALLERGIES Allergen Reactions Bactrim [Sulfametho* Hives Blisters: he (more content not included)... Normal [facility] Carbon dioxide, total [Moles /volume] in Central venous bloodOrdered By: Gustavo Castorena on 08-22-2024 CO2 [Moles/Vol] 18.6 mmol/L Low 21.0-32.0 [facility] Chloride assayOrdered By: Felix osbaldo Bradifrah on 08-22-2024 Chloride [Moles/Vol] 113 mmol/L High 98-108 [facility] Comprehensive metabolic 2000 panelon 08-22-2024 Albumin [Mass/Vol] 3.5 g/dL Low 3.9-4.9 [facility] Comment on above: Order Comment: Speci men Type: BLOOD SPECIMENOrdering Facility: [facility] Address: [address] [place] [address] Performed By: #### 2 4323-8, 60181-8, 3024-7, 3016-3 ####[facility] [id number] [place] [address] [place] ALP [Catalytic activity/Vol] 87 U/L Normal 34-123 [facility] Comment on above: Order Comment: Speci men Type: BLOOD SPECIMENOrdering Facility: [facility] Address: [address] [place] [address] Performed By: #### 2 4323-8, 56946-7, 3024-7, 3016-3 ####[facility] [id number] [place] [address] [place] ALT [Catalytic activity/Vol] 20 U/L Normal 7-38 [facility] Comment on above: Order Comment: Speci men Type: BLOOD SPECIMENOrdering Facility: [facility] Address: [address] [place] [address] Performed By: #### 2 4323-8, 49709-3, 3024-7, 3016-3 ####[facility] [id number] [place] [id number] [place] Anion gap [Moles/Vol] 12 mmol/L Normal 8-15 [facility] Comment on above: Order Comment: Speci men Type: BLOOD SPECIMENOrdering Facility: [facility] Address: [address] [place] [address] Performed By: #### 2 4323-8, 73950-6, 3024-7, 3016-3 ####[facility] [id number] [place] [id number] [place] AST [Catalytic activity/Vol] 26 U/L Normal 13-35 [facility] Comment on above: Order Comment: Speci men Type: BLOOD SPECIMENOrdering Facility: [facility] Address: [address] [place] [address] Performed By: #### 2 4323-8, 41525-4, 3023-7, 6-3 ####[facility] [id number] [place] [address] [place] Bilirubin [Mass/Vol] 0.2 mg/dL Normal 0.2-1.3 [facility] Comment on above: Order Comment: Speci men Type: BLOOD SPECIMENOrdering Facility: [facility] Address: [address] [place] [address] Performed By: #### 2 4323-8, 97525-4, 3023-7, 6-3 ####[facility] [id number] [place] [address] [place] Calcium [Mass/Vol] 8.7 mg/dL Normal 8.5-10.2 [facility] Comment on above: Order Comment: Speci men Type: BLOOD SPECIMENOrdering Facility: [facility] Address: [address] [place] [address] Performed By: #### 2 4323-8, 12344-2, 3024-7, 3016-3 ####[facility] [id number] [place] [id number] [place] Chloride [Moles/Vol] 113 mmol/L High 98-107 [facility] Comment on above: Order Comment: Speci men Type: BLOOD SPECIMENOrdering Facility: [facility] Address: [address] [place] [address] Performed By: #### 2 4323-8, 91325-9, 3024-7, 3016-3 ####[facility] [id number] [place] [address] [place] CO2 [Moles/Vol] 17 mmol/L Low 22-30 [facility] Comment on above: Order Comment: Speci men Type: BLOOD SPECIMENOrdering Facility: [facility] Address: [address] [place] [address] Performed By: #### 2 4323-8, 85894-9, 3024-7, 3016-3 ####[facility] [id number] [place] [address] [place] Creatinine [Mass/Vol] 1.77 mg/dL High 0.58-0.96 [facility] Comment on above: Order Comment: Speci men Type: BLOOD SPECIMENOrdering Facility: [facility] Address: [address] [place] [address] Performed By: #### 2 4323-8, 18709-7, 3024-7, 3016-3 ####[facility] [id number] [place] [address] [place] Creatinine and Glomerular filtration rate.predicted panel (S/P/Bld) 28 mL/min/1.73m??? Low >=60 [facility] Comment on above: Order Comment: Speci men Type: BLOOD SPECIMENOrdering Facility: [facility] Address: [address] [place] [address] Result Comment: Kayy mated Glomerular Filtration Rate [...] reflect actual GFR. Performed By: #### 2 4323-8, 94089-5, 3023-7, 3015-3 ####[facility] [id number] [facility] [id number], [place] [address] [place] Glucose [Mass/Vol] 73 mg/dL Low 74-99 [facility] Comment on above: Order Comment: Lea monae Type: BLOOD SPECIMENOrdering Facility: [facility] Address: [address] [place] [address] Result Comment: The [employer] Diabetes Association (ADA) provides guidance for cutoff [...] Standards of Medical Care in Diabetes 2016, [employer] Diabetes Association. Diabetes Care. 2016.39(Suppl 1). Performed By: #### 2 4323-8, 89804-0, 7, 3015-3 ####[facility] [id number] [facility] [id number] [place] [address] [place] Potassium [Moles/Vol] 3.7 mmol/L Normal 3.7-5.1 [facility] Comment on above: Order Comment: Lea monae Type: BLOOD SPECIMENOrdering Facility: [facility] Address: [address] [place] [address] Performed By: #### 2 4323-8, 81270-9, 3023-7, 6-3 ####[facility] [id number] [id number], [place] [address] [place] Protein [Mass/Vol] 6.2 g/dL Low 6.3-8.0 [facility] Comment on above: Order Comment: Speci men Type: BLOOD SPECIMENOrdering Facility: [facility] Address: [address] [place] [address] Performed By: #### 2 4323-8, 16577-7, 3024-7, 3016-3 ####[facility] [id number] [place] [id number] [place] Sodium [Moles/Vol] 142 mmol/L Normal 136-144 [facility] Comment on above: Order Comment: Speci men Type: BLOOD SPECIMENOrdering Facility: [facility] Address: [address] [place] [address] Performed By: #### 2 4323-8, 30489-2, 3024-7, 3016-3 ####[facility] [id number] [place] [address] [place] Urea nitrogen [Mass/Vol] 37 mg/dL High 7-21 [facility] Comment on above: Order Comment: Speci men Type: BLOOD SPECIMENOrdering Facility: [facility] Address: [address] [place] [address] Performed By: #### 2 4323-8, 39445-0, 3024-7, 3016-3 ####[facility] [id number] [place] [address] [place] Eosinophil percentageOrdered By: Gustavo Castorena on 08-22-2024 Eosinophils/100 WBC (Bld) 5.4 % High 0-5 [facility] Erythrocyte distribution wid th ratioOrdered By: Gustavo Castorena on 08-22-2024 Erythrocyte distribution width (RBC) [Ratio] 16.4 % High 11.6-14.6 [facility] Erythrocyte distribution wid th standard deviationOrdered By: Gustavo Castorena on 08-22-2024 Erythrocyte distribution width (RBC) [Ratio] 61.6 fl High 35.1-43.9 [facility] Glomerular filtration rate ( GFR) estimation/1.73 sq m using serum, plasma, or whole bOrdered By: Gustavo Castorena on 08-22-2024 GFR/1.73 sq M.predicted among non-blacks MDRD (S/P/Bld) [Vol rate/Area] 27 mL/min/{1.73_m2} Low >60 [facility] Hematocrit Auto (Bld) [Volum e fraction]Ordered By: Gustavo Castorena on 08-22-2024 Hematocrit (Bld) [Volume fraction] 28.3 % Low 37-47 [facility] Hemoglobin measurementOrdere d By: Gustavo Castorena on 08-22-2024 Hemoglobin (Bld) [Mass/Vol] 8.7 g/dL Low 12.0-15.0 [facility] Immature granulocytes/100 WB C Auto (Bld)Ordered By: Gustavo Castorena on 08-22-2024 Immature granulocytes/100 WBC (Bld) 0.400 % 0.0-0.9 [facility] Lipid 1996 panelon Cholesterol [Mass/Vol] 114 mg/dL Normal <200 [facility] Comment on above: Order Comment: Lea monae Type: BLOOD SPECIMENOrdering Facility: [facility] Address: [address] [place] [address] Result Comment: <200 mg/dL, Desirable 200-239 mg/dL, Borderline high >239 mg/dL, High Performed By: #### 2 4323-8, 33702-4, 3024-7, 3016-3 ####[facility] [id number] [place] [address] [place] Cholesterol in HDL [Mass/Vol] 37 mg/dL Low >39 [facility] Comment on above: Order Comment: Lea monae Type: BLOOD SPECIMENOrdering Facility: [facility] Address: [address] [place] [address] Result Comment: 40-5 9 mg/dL, Acceptable >59 mg/dL, High: Negative risk factor for coronary heart disease <40 mg/dL, Low: Positive risk factor for coronary heart disease Performed By: #### 2 4323-8, 99013-9, 4-7, 3015-3 ####[facility] [id number] [address] [address] [place] Cholesterol in LDL [Mass/Vol] 57 mg/dL Normal <100 [facility] Comment on above: Order Comment: Lea dov Type: BLOOD SPECIMENOrdering Facility: [facility] Address: [address] [place] [address] Result Comment: <100 mg/dL, Optimal 100-129 mg/dL, Near optimal/above optimal 130-159 mg/dL, Borderline high 160-189 mg/dL, High >189 mg/dL, Very high Secondary prevention optimal LDL Cholesterol levels are recommended to be <70 mg/dL LDL cholesterol is calculated using the Otoole-NIH equation. Performed By: #### 2 4323-8, 16564-8, 3023-10, 3 ####[facility] [id number] [address] [address] [place] Cholesterol in LDL/Cholesterol in HDL [Mass ratio] 1.54 {ratio} Normal <2.54 [facility] Comment on above: Order Comment: Lea dov Type: BLOOD SPECIMENOrdering Facility: [facility] Address: [address] [place] [address] Result Comment: Refe rence: 1. National Cholesterol Education Program ATP III Guideline At-A-Glance Quick Desk Reference: National Heart, Lung, and Blood Paradox. National Institutes of Health. 2001: NIH Publication No. 01-3305. 2. An International Atherosclerosis Society position paper: global recommendations for the management of dyslipidemia: executive summary, Atherosclerosis. 2014: 232(2):410-413. Performed By: #### 2 4323-8, 38207-7, 3023-7, 3015-3 ####[facility] [id number] [address] [address] [place] Cholesterol in VLDL [Mass/Vol] 16 mg/dL Normal <30 [facility] Comment on above: Order Comment: Speci men Type: BLOOD SPECIMENOrdering Facility: [facility] Address: [address] [place] [id number] Performed By: #### 2 4323-8, 49947-2, 3023-10, 3015-3 ####[facility] [id number] [address] [address] [place] Cholesterol non HDL [Mass/Vol] 77 mg/dL Normal <130 [facility] Comment on above: Order Comment: Speci men Type: BLOOD SPECIMENOrdering Facility: [facility] Address: [address] [place] [address] Result Comment: <130 mg/dL, Optimal 130-159 mg/dL, Near optimal/above optimal 160-189 mg/dL, Borderline high 190-219 mg/dL, High >219 mg/dL, Very high Secondary prevention optimal non HDL Cholesterol levels are recommended to be <100 mg/dL Performed By: #### 2 4323-8, 17612-0, 3023-10, 3015-3 ####[facility] [id number] [address] [address] [place] Cholesterol.total/Chol esterol in HDL [Mass ratio] 3.08 {ratio} Normal <5.10 [facility] Comment on above: Order Comment: Speci men Type: BLOOD SPECIMENOrdering Facility: [facility] Address: [address] [place] [id number] Performed By: #### 2 4323-8, 64953-8, 3023-10, 3 ####[facility] [id number] [address] [address] [place] FASTING TIME 6 hrs Normal [facility] Comment on above: Order Comment: Speci men Type: BLOOD SPECIMENOrdering Facility: [facility] Address: [address] [place] [id number] Performed By: #### 2 4323-8, 20794-0, 3023-, 3015-3 ####[facility] [id number] [place] [address] [place] Triglyceride [Mass/Vol] 108 mg/dL Normal <150 [facility] Comment on above: Order Comment: Speci men Type: BLOOD SPECIMENOrdering Facility: [facility] Address: [address] [facility] [address] Result Comment: <150 mg/dL, Normal 150-199 mg/dL, Borderline high 200-499 mg/dL, High >499 mg/dL, Very high Performed By: #### 2 4323-8, 48660-3, 3024-7, 3016-3 ####[facility] [id number] [address] [place] MCV (mean corpuscular volume ) determinationOrdered By: Gustavo Castorena on 08-22-2024 MCV (RBC) [Entitic vol] 103.3 fL High 81-99 [facility] Mean corpuscular hemoglobin (MCH) determinationOrdered By: Gustavo Castorena on 08-22-2024 MCH (RBC) [Entitic mass] 31.8 pg 27.0-32.0 [facility] Monocyte percentageOrdered B y: Gustavo Castorena on 08-22-2024 Monocytes/100 WBC (Bld) 7.8 % 0-10 [facility] Neutrophil percentageOrdered By: Gustavo Castorena on 08-22-2024 Neutrophils/100 WBC (Bld) 51.3 % 47-70 [facility] Platelet countOrdered By: Felix Castorena on 08-22-2024 Platelets (Bld) [#/Vol] 193 10*3/uL 150-450 [facility] Potassium measurement (mass/ volume)Ordered By: Gustavo Castorena on 08-22-2024 Potassium (Unsp spec) [Mass/Vol] 3.5 mmol/L 3.3-5.1 [facility] RBC Auto (Bld) [#/Vol]Ordere d By: Gustavo Castorena on 08-22-2024 RBC (Bld) [#/Vol] 2.74 10*6/uL Low 4.2-5.4 [facility] Serum creatinine measurement (mass/volume)Ordered By: Gustavo Castorena on 08-22-2024 Creatinine [Mass/Vol] 1.86 mg/dL High 0.70-1.20 [facility] Serum glucose measurement (m ass/volume)Ordered By: Gustavo Castorena on 08-22-2024 Glucose [Mass/Vol] 79 mg/dL 70-99 [facility] Serum or plasma calcium farheen urement (mass/volume)Ordered By: Gustavo Castorena on 08-22-2024 Calcium [Mass/Vol] 8.4 mg/dL 7.6-11.0 [facility] Serum or plasma urea nitroge n measurement (mass/volume)Ordered By: Gustavo Castorena on 08-22-2024 Urea nitrogen [Mass/Vol] 38 mg/dL High 4-19 [facility] Sodium levelOrdered By: Sharri Castorena on 08-22-2024 Sodium [Moles/Vol] 143 mmol/L 133-145 [facility] T4 Free SerPl-mCncon 025 Free T4 [Mass/Vol] 1.4 ng/dL Normal 0.9-1.7 [facility] Comment on above: Order Comment: Speci men Type: BLOOD SPECIMENOrdering Facility: [facility] Address: [address] [place] [address] Performed By: #### 2 4323-8, 70961-6, 3023-7, 6-3 ####[facility] [id number] [address] [address] [place] TSH SerPl-aCncon 08-22-2024 TSH Qn 3.360 m[IU]/L Normal 0.270-4.20 0 [facility] Comment on above: Order Comment: Speci men Type: BLOOD SPECIMENOrdering Facility: [facility] Address: [address] [place] [address] Performed By: #### 2 4323-8, 46981-4, 3023-7, 3016-3 ####[facility] [id number] [place] [address] [place] Urinalysis complete panel (U )on 08-22-2024 Bacteria uL uL High - 941 uL [facility] Bilirubin Ql (U) Negative Negative [facility] Clarity (Unsp spec) Clear Clear [facility] Color (U) Yellow Yellow [facility] Epithelial cells LM.HPF (Urine sed) [#/Area] None Seen /HPF [facility] Glucose Test strip (U) [Mass/Vol] Negative Negative [facility] Hemoglobin Ql (U) Negative Negative [facility] Hyaline casts (Urine sed) [#/Area] 1-3 /LPF Abnormal 0 /LPF [facility] Interpretation and review of laboratory results Abnormal [facility] Ketones Ql (U) Negative Negative [facility] Leukocyte esterase Test strip Ql (U) 2+ Abnormal Negative [facility] Nitrite Ql (U) Negative Negative [facility] pH (U) 5.5 [pH] NINF - 8.5 [facility] Protein (U) [Mass/Vol] Negative Negative [facility] RBC LM.HPF (Urine sed) [#/Area] 0-2 /HPF 0-2 /HPF [facility] Specific gravity (U) [Rel density] 1.01 1.005 - 1.030 [facility] Urobilinogen Ql (U) 0.2 EU/dL 0.2-1.0 EU/dL [facility] WBC LM.HPF (Urine sed) [#/Area] 11-20 /HPF Abnormal 0-5 /HPF [facility] This test was iglesia esteban and its performance characteristics determined by [facility]'s Gonzalo JLuis Fernando [facility] ([facility]). It has not been cleared or approved by the FDA. [facility] is regulated under CLIA as qualified to perform high-complexity testing. This test is used for clinical purposes. It should not be regarded as investigational or for research. [facility] BACTERIA UL >9821 High Negative [facility] Comment on above: Order Comment: Speci men Type: URINE SPECIMENOrdering Facility: [facility] Address: [address] [place] [address] [place] [address] Performed By: #### 6 30-4, 61028-1 ####[id number] [facility] [address] [place] [address] [place] Bilirubin Ql (U) Negative Normal Negative [facility] Comment on above: Order Comment: Speci men Type: URINE SPECIMENOrdering Facility: [facility] Address: [address] [place] [address] Performed By: #### 6 30-4, 64830-3 ####[facility] [id number] [address] [place] [address] [place] Clarity (Unsp spec) Clear Normal Clear [facility] Comment on above: Order Comment: Speci men Type: URINE SPECIMENOrdering Facility: [facility] Address: [address] [place] [address] Performed By: #### 6 30-4, 99384-5 ####[facility] [id number] [address], [facility] [place] [facility] Color (U) Yellow Normal Yellow [facility] Comment on above: Order Comment: Speci men Type: URINE SPECIMENOrdering Facility: [facility] Address: [address] [place] [address] Performed By: #### 6 30-4, 61733-2 ####[facility] [id number] [address], [facility] [place] Epithelial cells LM.HPF (Urine sed) [#/Area] None Seen Normal [facility] Comment on above: Order Comment: Speci men Type: URINE SPECIMENOrdering Facility: [facility] Address: [address] [place] [address] Performed By: #### 6 30-4, 33366-7 ####[facility] [id number] [address] [place] [address] [place] Glucose Test strip (U) [Mass/Vol] Negative Normal Negative [facility] Comment on above: Order Comment: Speci men Type: URINE SPECIMENOrdering Facility: [facility] Address: [address] [place] [address] Performed By: #### 6 30-4, 87078-6 ####[facility] [id number] [address] [address] [place] Hemoglobin Ql (U) Negative Normal Negative [facility] Comment on above: Order Comment: Speci men Type: URINE SPECIMENOrdering Facility: [facility] Address: [address] [place] [address] Performed By: #### 6 30-4, 34604-3 ####[facility] [id number] [place] [address] [place] Hyaline casts (Urine sed) [#/Area] 1-3 /LPF Abnormal 0 /LPF [facility] Comment on above: Order Comment: Speci men Type: URINE SPECIMENOrdering Facility: [facility] Address: [address] [place] [address] Performed By: #### 6 30-4, 98921-6 ####[facility] [id number] [place] [address] [place] Ketones Ql (U) Negative Normal Negative [facility] Comment on above: Order Comment: Speci men Type: URINE SPECIMENOrdering Facility: [facility] Address: [address] [place] [address] Performed By: #### 6 30-4, 66993-8 ####[facility] [id number] [address] [address] [place] Leukocyte esterase Test strip Ql (U) 2+ Abnormal Negative [facility] Comment on above: Order Comment: Speci men Type: URINE SPECIMENOrdering Facility: [facility] Address: [address] [place] [address] Performed By: #### 6 30-4, 33605-9 ####[facility] [id number] [address] [place] [address] [place] Nitrite Ql (U) Negative Normal Negative [facility] Comment on above: Order Comment: Speci men Type: URINE SPECIMENOrdering Facility: [facility] Address: [address] [place] [address] Performed By: #### 6 30-4, 76498-5 ####[facility] [id number] [address] [place] [address] [place] pH (U) 5.5 [pH] Normal <8.5 [facility] Comment on above: Order Comment: Speci men Type: URINE SPECIMENOrdering Facility: [facility] Address: [address] [place] [address] Performed By: #### 6 30-4, 88519-6 ####[facility] [id number] [address], [place] [address] [place] Protein (U) [Mass/Vol] Negative Normal Negative [facility] Comment on above: Order Comment: Speci men Type: URINE SPECIMENOrdering Facility: [facility] Address: [address] [place] [address] Performed By: #### 6 30-4, 01512-1 ####[facility] [id number] [address] [place] [address] [place] RBC LM.HPF (Urine sed) [#/Area] 0-2 /HPF Normal 0-2 /HPF [facility] Comment on above: Order Comment: Speci men Type: URINE SPECIMENOrdering Facility: [facility] Address: [address] [place] [address] Performed By: #### 6 30-4, 85462-4 ####[facility] [id number] [address] [place] [address] [place] Specific gravity (U) [Rel density] 1.010 Normal 1.005-1.03 0 [facility] Comment on above: Order Comment: Speci men Type: URINE SPECIMENOrdering Facility: [facility] Address: [address] [place] [address] Performed By: #### 6 30-4, 75501-6 ####[facility] [id number] [place] [address] [place] Urobilinogen Ql (U) 0.2 EU/dL Normal 0.2-1.0 EU/dL [facility] Comment on above: Order Comment: Speci men Type: URINE SPECIMENOrdering Facility: [facility] Address: [address] [place] [address] Performed By: #### 6 30-4, 27898-3 ####[facility] [id number] [place] [address] [place] WBC LM.HPF (Urine sed) [#/Area] 11-20 /HPF Abnormal 0-5 /HPF [facility] Comment on above: Order Comment: Speci men Type: URINE SPECIMENOrdering Facility: [facility] Address: [address] [place] [address] Performed By: #### 6 30-4, 07621-3 ####[facility] [id number] [place] [address] [place] White blood cell (WBC) count Ordered By: Gustavo Castorena on 08-22-2024 WBC (Bld) [#/Vol] 5.0 10*3/uL 4.4-11.0 [facility] Absolute lymphocyte countOrd ered By: Gustavo Castorena on 08-18-2024 Lymphocytes Auto (Unsp spec) [#/Vol] 1.57 10*3/uL 0.83-4.51 [facility] Anion gap in Serum or Plasma Ordered By: Gustavo Castorena on 08-18-2024 Anion gap [Moles/Vol] 10 mmol/L 08-18 [facility] Automated lymphocyte count a s percentage of total leukocytesOrdered By: Gustavo Castorena on 08-18-2024 Lymphocytes/100 WBC Auto (Unsp spec) 33.2 % 19-41 [facility] BUN/creatinine ratioOrdered By: Gustavo Castorena on 08-18-2024 Urea nitrogen/Creatinine [Mass ratio] 22.8 mg/mg High 10-20 [facility] Basophil percentageOrdered B y: Sharrirubiamaryann Castorena on 08-18-2024 Basophils/100 WBC (Bld) 1.1 % High 0-1 [facility] Carbon dioxide, total [Moles /volume] in Central venous bloodOrdered By: Gustavo Castorena on 08-18-2024 CO2 [Moles/Vol] 18.3 mmol/L Low 21.0-32.0 [facility] Chloride assayOrdered By: Felix donnyanamaria Castorena on 08-18-2024 Chloride [Moles/Vol] 114 mmol/L High 98-108 [facility] Eosinophil percentageOrdered By: donnynew frankenmaryann Castorena on 08-18-2024 Eosinophils/100 WBC (Bld) 4.9 % 0-5 [facility] Erythrocyte distribution wid th ratioOrdered By: donnynew frankenmaryann Castorena on 08-18-2024 Erythrocyte distribution width (RBC) [Ratio] 16.2 % High 11.6-14.6 [facility] Erythrocyte distribution wid th standard deviationOrdered By: Gustavo Castorena on 08-18-2024 Erythrocyte distribution width (RBC) [Ratio] 61.8 fl High 35.1-43.9 [facility] Glomerular filtration rate ( GFR) estimation/1.73 sq m using serum, plasma, or whole bOrdered By: Gustavo Castorena on 08-18-2024 GFR/1.73 sq M.predicted among non-blacks MDRD (S/P/Bld) [Vol rate/Area] 29 mL/min/{1.73_m2} Low >60 [facility] Hematocrit Auto (Bld) [Volum e fraction]Ordered By: Gustavo Castorena on 08-18-2024 Hematocrit (Bld) [Volume fraction] 26.8 % Low 37-47 [facility] Hemoglobin measurementOrdere d By: Gustavo Castorena on 08-18-2024 Hemoglobin (Bld) [Mass/Vol] 8.1 g/dL Low 12.0-15.0 [facility] Immature granulocytes/100 WB C Auto (Bld)Ordered By: Gustavo Castorena on 08-18-2024 Immature granulocytes/100 WBC (Bld) 0.200 % 0.0-0.9 [facility] MCV (mean corpuscular volume ) determinationOrdered By: Gustavo Castorena on 08-18-2024 MCV (RBC) [Entitic vol] 103.9 fL High 81-99 [facility] Mean corpuscular hemoglobin (MCH) determinationOrdered By: Gustavo Castorena on 08-18-2024 MCH (RBC) [Entitic mass] 31.4 pg 27.0-32.0 [facility] Monocyte percentageOrdered B y: Gustavo Brownleeevelynechela on 08-18-2024 Monocytes/100 WBC (Bld) 8.5 % 0-10 [facility] Neutrophil percentageOrdered By: Gustavo Castorena on 08-18-2024 Neutrophils/100 WBC (Bld) 52.1 % 47-70 [facility] Platelet countOrdered By: Felix osbaldo Bradevelynechela on 08-18-2024 Platelets (Bld) [#/Vol] 194 10*3/uL 150-450 [facility] Potassium measurement (mass/ volume)Ordered By: Gustavo Castorena on 08-18-2024 Potassium (Unsp spec) [Mass/Vol] 3.3 mmol/L 3.3-5.1 [facility] RBC Auto (Bld) [#/Vol]Ordere d By: Sharrirubiamaryann Castorena on 08-18-2024 RBC (Bld) [#/Vol] 2.58 10*6/uL Low 4.2-5.4 [facility] Serum creatinine measurement (mass/volume)Ordered By: Gustavo Castorena on 08-18-2024 Creatinine [Mass/Vol] 1.72 mg/dL High 0.70-1.20 [facility] Serum glucose measurement (m ass/volume)Ordered By: Gustavo Castorena on 08-18-2024 Glucose [Mass/Vol] 78 mg/dL 70-99 [facility] Serum or plasma calcium farheen urement (mass/volume)Ordered By: Gustavo Brownleeevelynechela on 08-18-2024 Calcium [Mass/Vol] 8.2 mg/dL 7.6-11.0 [facility] Serum or plasma urea nitroge n measurement (mass/volume)Ordered By: Gustavo Brownleeevelynechela on 08-18-2024 Urea nitrogen [Mass/Vol] 39 mg/dL High 4-19 [facility] Sodium levelOrdered By: Sharri anamaria Bradevelynechela on 08-18-2024 Sodium [Moles/Vol] 142 mmol/L 133-145 [facility] White blood cell (WBC) count Ordered By: Sharrirubiamaryann Brownleeevelynechela on 08-18-2024 WBC (Bld) [#/Vol] 4.7 10*3/uL 4.4-11.0 [facility] Absolute lymphocyte countOrd ered By: Sharrianamaria Bradevelynechela on 08-16-2024 Lymphocytes Auto (Unsp spec) [#/Vol] 1.62 10*3/uL 0.83-4.51 [facility] Anion gap in Serum or Plasma Ordered By: Guidomaryann Bradevelynechela on 08-16-2024 Anion gap [Moles/Vol] 11 mmol/L 5-15 [facility] Automated lymphocyte count a s percentage of total leukocytesOrdered By: Sharrirubiamaryann Brownleeevelynechela on 08-16-2024 Lymphocytes/100 WBC Auto (Unsp spec) 31.6 % 19-41 [facility] BUN/creatinine ratioOrdered By: Sharrirubiamaryann Brownleeevelynechela on 08-16-2024 Urea nitrogen/Creatinine [Mass ratio] 21.3 mg/mg High 10-20 [facility] Basophil percentageOrdered B y: Gustavo Bradevelynechela on 08-16-2024 Basophils/100 WBC (Bld) 0.8 % 0-1 [facility] Carbon dioxide, total [Moles /volume] in Central venous bloodOrdered By: Sharrirubiamaryann Brownleeevelynechela on 08-16-2024 CO2 [Moles/Vol] 18.5 mmol/L Low 21.0-32.0 [facility] Chloride assayOrdered By: Felix donnyanamaria Castorena on 08-16-2024 Chloride [Moles/Vol] 113 mmol/L High 98-108 [facility] Eosinophil percentageOrdered By: Felixdonnyrubiamaryann Castorena on 08-16-2024 Eosinophils/100 WBC (Bld) 5.1 % High 0-5 [facility] Erythrocyte distribution wid th ratioOrdered By: [facility] Hospital[facility] on 08-16-2024 Erythrocyte distribution width (RBC) [Ratio] 16.1 % High 11.6-14.6 [facility] Erythrocyte distribution wid th standard deviationOrdered By: donnynew frankenmaryann Brownleeevelynechela on 08-16-2024 Erythrocyte distribution width (RBC) [Ratio] 61.9 fl High 35.1-43.9 [facility] Glomerular filtration rate ( GFR) estimation/1.73 sq m using serum, plasma, or whole bOrdered By: Gustavo Castorena on 08-16-2024 GFR/1.73 sq M.predicted among non-blacks MDRD (S/P/Bld) [Vol rate/Area] 24 mL/min/{1.73_m2} Low >60 [facility] Hematocrit Auto (Bld) [Volum e fraction]Ordered By: donnynew frankenmaryann Castorena on 08-16-2024 Hematocrit (Bld) [Volume fraction] 25.9 % Low 37-47 [facility] Hemoglobin measurementOrdere d By: Gustavo Castorena 08-16-2024 Hemoglobin (Bld) [Mass/Vol] 7.8 g/dL Low 12.0-15.0 [facility] Immature granulocytes/100 WB C Auto (Bld)Ordered By: Gustavo Castorena 08-16-2024 Immature granulocytes/100 WBC (Bld) 0.200 % 0.0-0.9 [facility] MCV (mean corpuscular volume ) determinationOrdered By: Gustavo Castorena 08-16-2024 MCV (RBC) [Entitic vol] 105.3 fL High 81-99 [facility] Mean corpuscular hemoglobin (MCH) determinationOrdered By: donnynew frankenmaryann Castorena 08-16-2024 MCH (RBC) [Entitic mass] 31.7 pg 27.0-32.0 [facility] Monocyte percentageOrdered B y: Gustavo Castorena on 08-16-2024 Monocytes/100 WBC (Bld) 9.4 % 0-10 [facility] Neutrophil percentageOrdered By: Gustavo Castorena on 08-16-2024 Neutrophils/100 WBC (Bld) 52.9 % 47-70 [facility] Platelet countOrdered By: Felix osbaldo Bradevelynechela on 08-16-2024 Platelets (Bld) [#/Vol] 190 10*3/uL 150-450 [facility] Potassium measurement (mass/ volume)Ordered By: Sharrirubiamaryann Brownleeevelynechela on 08-16-2024 Potassium (Unsp spec) [Mass/Vol] 3.6 mmol/L 3.3-5.1 [facility] RBC Auto (Bld) [#/Vol]Ordere d By: Gustavo Bradifrah on 08-16-2024 RBC (Bld) [#/Vol] 2.46 10*6/uL Low 4.2-5.4 [facility] Serum creatinine measurement (mass/volume)Ordered By: Felixdonnyrubiamaryann Brownleeevelynechela on 08-16-2024 Creatinine [Mass/Vol] 2.04 mg/dL High 0.70-1.20 [facility] Serum glucose measurement (m ass/volume)Ordered By: Felixosbaldo Castorena on 08-16-2024 Glucose [Mass/Vol] 81 mg/dL 70-99 [facility] Serum or plasma calcium farheen urement (mass/volume)Ordered By: Felixdonnyrubiamaryann Brownleeevelynechela on 08-16-2024 Calcium [Mass/Vol] 8.1 mg/dL 7.6-11.0 [facility] Serum or plasma urea nitroge n measurement (mass/volume)Ordered By: Gustavo Castorena on 08-16-2024 Urea nitrogen [Mass/Vol] 43 mg/dL High 4-19 [facility] Sodium levelOrdered By: Sharri conrad Bradevelynechela on 08-16-2024 Sodium [Moles/Vol] 142 mmol/L 133-145 [facility] White blood cell (WBC) count Ordered By: Gustavo Brownleeevelynechela on 08-16-2024 WBC (Bld) [#/Vol] 5.1 10*3/uL 4.4-11.0 [facility] Wound Ctr History AND Physic jonathan 08-15-2024 Wound Ctr History & Physical Normal [facility] Plastic Surgery Visit Report on 08-12-2024 Plastic Surgery Visit Report Normal [facility] Absolute lymphocyte countOrd ered By: Gustavo Castorena on 08-08-2024 Lymphocytes Auto (Unsp spec) [#/Vol] 1.83 10*3/uL 0.83-4.51 [facility] Anion gap in Serum or Plasma Ordered By: Gustavo Castorena on 08-08-2024 Anion gap [Moles/Vol] 10 mmol/L 5-15 [facility] Automated lymphocyte count a s percentage of total leukocytesOrdered By: Gustavo Castroena on 08-08-2024 Lymphocytes/100 WBC Auto (Unsp spec) 37.8 % 19-41 [facility] BUN/creatinine ratioOrdered By: Gustavo Castorena on 08-08-2024 Urea nitrogen/Creatinine [Mass ratio] 18.6 mg/mg 10-20 [facility] Basophil percentageOrdered B y: Gustavo Castorena on 08-08-2024 Basophils/100 WBC (Bld) 1.0 % 0-1 [facility] Carbon dioxide, total [Moles /volume] in Central venous bloodOrdered By: Gustavo Castorena on 08-08-2024 CO2 [Moles/Vol] 21.2 mmol/L 21.0-32.0 [facility] Chloride assayOrdered By: Felix Castorena on 08-08-2024 Chloride [Moles/Vol] 109 mmol/L High 98-108 [facility] Eosinophil percentageOrdered By: Gustavo Castorena on 08-08-2024 Eosinophils/100 WBC (Bld) 6.4 % High 0-5 [facility] Erythrocyte distribution wid th ratioOrdered By: Gustavo Castorena on 08-08-2024 Erythrocyte distribution width (RBC) [Ratio] 16.5 % High 11.6-14.6 [facility] Erythrocyte distribution wid th standard deviationOrdered By: Gustavo Castorena on 08-08-2024 Erythrocyte distribution width (RBC) [Ratio] 61.0 fl High 35.1-43.9 [facility] Glomerular filtration rate ( GFR) estimation/1.73 sq m using serum, plasma, or whole bOrdered By: Gustavo Castorena on 08-08-2024 GFR/1.73 sq M.predicted among non-blacks MDRD (S/P/Bld) [Vol rate/Area] 26 mL/min/{1.73_m2} Low >60 [facility] Hematocrit Auto (Bld) [Volum e fraction]Ordered By: Gustavo Castorena on 08-08-2024 Hematocrit (Bld) [Volume fraction] 26.3 % Low 37-47 [facility] Hemoglobin measurementOrdere d By: Gustavo Castorena on 08-08-2024 Hemoglobin (Bld) [Mass/Vol] 8.3 g/dL Low 12.0-15.0 [facility] Immature granulocytes/100 WB C Auto (Bld)Ordered By: Gustavo Castorena on 08-08-2024 Immature granulocytes/100 WBC (Bld) 0.000 % 0.0-0.9 [facility] MCV (mean corpuscular volume ) determinationOrdered By: Gustavo Castorena on 08-08-2024 MCV (RBC) [Entitic vol] 101.5 fL High 81-99 [facility] Mean corpuscular hemoglobin (MCH) determinationOrdered By: osbaldo Castorena on 08-08-2024 MCH (RBC) [Entitic mass] 32.0 pg 27.0-32.0 [facility] Monocyte percentageOrdered B y: Gustavo Castorena on 08-08-2024 Monocytes/100 WBC (Bld) 10.3 % High 0-10 [facility] Neutrophil percentageOrdered By: osbaldo Castorena on 08-08-2024 Neutrophils/100 WBC (Bld) 44.5 % Low 47-70 [facility] Platelet countOrdered By: Felix Castorena on 08-08-2024 Platelets (Bld) [#/Vol] 202 10*3/uL 150-450 [facility] Potassium measurement (mass/ volume)Ordered By: Gustavo Castorena on 08-08-2024 Potassium (Unsp spec) [Mass/Vol] 3.4 mmol/L 3.3-5.1 [facility] RBC Auto (Bld) [#/Vol]Ordere d By: Gustavo Castorena on 08-08-2024 RBC (Bld) [#/Vol] 2.59 10*6/uL Low 4.2-5.4 [facility] Serum creatinine measurement (mass/volume)Ordered By: Gustavo Castorena on 08-08-2024 Creatinine [Mass/Vol] 1.90 mg/dL High 0.70-1.20 [facility] Serum glucose measurement (m ass/volume)Ordered By: Gustavo Castorena on 08-08-2024 Glucose [Mass/Vol] 78 mg/dL 70-99 [facility] Serum or plasma calcium farheen urement (mass/volume)Ordered By: Gustavo Castorena on 08-08-2024 Calcium [Mass/Vol] 8.0 mg/dL 7.6-11.0 [facility] Serum or plasma urea nitroge n measurement (mass/volume)Ordered By: Gustavo Castorena on 08-08-2024 Urea nitrogen [Mass/Vol] 35 mg/dL High 4-19 [facility] Sodium levelOrdered By: Sharri Castorena on 08-08-2024 Sodium [Moles/Vol] 140 mmol/L 133-145 [facility] White blood cell (WBC) count Ordered By: Gustavo Castorena on 08-08-2024 WBC (Bld) [#/Vol] 4.8 10*3/uL 4.4-11.0 [facility] Absolute lymphocyte countOrd ered By: Gustavo Castorena on 08-01-2024 Lymphocytes Auto (Unsp spec) [#/Vol] 1.62 10*3/uL 0.83-4.51 [facility] Anion gap in Serum or Plasma Ordered By: Gustavo Castorena on 08-01-2024 Anion gap [Moles/Vol] 11 mmol/L 5-15 [facility] Automated lymphocyte count a s percentage of total leukocytesOrdered By: Gustavo Castorena on 08-01-2024 Lymphocytes/100 WBC Auto (Unsp spec) 36.3 % 19-41 [facility] BUN/creatinine ratioOrdered By: Gustavo Castorena on 08-01-2024 Urea nitrogen/Creatinine [Mass ratio] 15.9 mg/mg 10-20 [facility] [facility] Basophil percentageOrdered B y: Gustavo Castorena on 08-01-2024 Basophils/100 WBC (Bld) 0.4 % 0-1 [facility] Carbon dioxide, total [Moles /volume] in Central venous bloodOrdered By: osbaldo Castorena on 08-01-2024 CO2 [Moles/Vol] 21.1 mmol/L 21.0-32.0 [facility] Chloride assayOrdered By: Felix donnyanamaria Castorena on 08-01-2024 Chloride [Moles/Vol] 111 mmol/L High 98-108 [facility] Eosinophil percentageOrdered By: Gustavo Castorena on 08-01-2024 Eosinophils/100 WBC (Bld) 6.7 % High 0-5 [facility] Erythrocyte distribution wid th ratioOrdered By: osbaldo Castorena on 08-01-2024 Erythrocyte distribution width (RBC) [Ratio] 16.9 % High 11.6-14.6 [facility] Erythrocyte distribution wid th standard deviationOrdered By: Gustavo Castorena on 08-01-2024 Erythrocyte distribution width (RBC) [Ratio] 63.1 fl High 35.1-43.9 [facility] Glomerular filtration rate ( GFR) estimation/1.73 sq m using serum, plasma, or whole bOrdered By: Gustavo Castorena on 08-01-2024 GFR/1.73 sq M.predicted among non-blacks MDRD (S/P/Bld) [Vol rate/Area] 28 mL/min/{1.73_m2} Low >60 [facility] Hematocrit Auto (Bld) [Volum e fraction]Ordered By: Gustavo Castorena on 08-01-2024 Hematocrit (Bld) [Volume fraction] 27.1 % Low 37-47 [facility] Hemoglobin measurementOrdere d By: Gustavo Castorena on 08-01-2024 Hemoglobin (Bld) [Mass/Vol] 8.5 g/dL Low 12.0-15.0 [facility] Immature granulocytes/100 WB C Auto (Bld)Ordered By: Gustavo Millardchela on 08-01-2024 Immature granulocytes/100 WBC (Bld) 0.700 % 0.0-0.9 [facility] MCV (mean corpuscular volume ) determinationOrdered By: Felixdonnyrubiamaryann Brwonleeevelynechela on 08-01-2024 MCV (RBC) [Entitic vol] 101.1 fL High 81-99 [facility] Mean corpuscular hemoglobin (MCH) determinationOrdered By: donnyrubiamaryann Brownleeevelynechela on 08-01-2024 MCH (RBC) [Entitic mass] 31.7 pg 27.0-32.0 [facility] Monocyte percentageOrdered B y: Gustavo Bradevelynechela on 08-01-2024 Monocytes/100 WBC (Bld) 9.0 % 0-10 [facility] Neutrophil percentageOrdered By: donnyanamaria Bradevelynechela on 08-01-2024 Neutrophils/100 WBC (Bld) 46.9 % Low 47-70 [facility] Platelet countOrdered By: Felix Castorena on 08-01-2024 Platelets (Bld) [#/Vol] 175 10*3/uL 150-450 [facility] Potassium measurement (mass/ volume)Ordered By: Felixdonnyrubiamaryann Brownleeevelynechela on 08-01-2024 Potassium (Unsp spec) [Mass/Vol] 3.4 mmol/L 3.3-5.1 [facility] RBC Auto (Bld) [#/Vol]Ordere d By: Gustavo Millardchela on 08-01-2024 RBC (Bld) [#/Vol] 2.68 10*6/uL Low 4.2-5.4 [facility] Serum creatinine measurement (mass/volume)Ordered By: Felixdonnyrubiamaryann Brownleeevelynechela on 08-01-2024 Creatinine [Mass/Vol] 1.80 mg/dL High 0.70-1.20 [facility] Serum glucose measurement (m ass/volume)Ordered By: Felixdonnyrubiamaryann Brownleeevelynechela on 08-01-2024 Glucose [Mass/Vol] 80 mg/dL 70-99 [facility] Serum or plasma calcium farheen urement (mass/volume)Ordered By: Gustavo Castorena on 08-01-2024 Calcium [Mass/Vol] 8.1 mg/dL 7.6-11.0 [facility] Serum or plasma urea nitroge n measurement (mass/volume)Ordered By: Gustavo Castorena on 08-01-2024 Urea nitrogen [Mass/Vol] 29 mg/dL High 4-19 [facility] Sodium levelOrdered By: Sharri Castorena on 08-01-2024 Sodium [Moles/Vol] 143 mmol/L 133-145 [facility] White blood cell (WBC) count Ordered By: Gustavo Castorena on 08-01-2024 WBC (Bld) [#/Vol] 4.5 10*3/uL 4.4-11.0 [facility] Emergency Department Summary on 07-29-2024 Emergency Department Summary Normal [facility] Tibia Fibula 2 Viewson 07-29 Tibia Fibula 2 Views Normal [facility] Absolute lymphocyte countOrd ered By: Gustavo Castorena on 07-25-2024 Lymphocytes Auto (Unsp spec) [#/Vol] 1.75 10*3/uL 0.83-4.51 [facility] Absolute neutrophil countOrd ered By: Gustavo Castorena on 07-25-2024 Absolute neutrophil count 2.1 X10^3/uL 2.0-7.7 [facility] Anion gap [Moles/Vol]Ordered By: Gustavo Castorena on 07-25-2024 Anion gap in Serum or Plasma 9 5-15 [facility] Anion gap in Serum or Plasma Ordered By: Gustavo Castorena on 07-25-2024 Anion gap [Moles/Vol] 9 mmol/L 5- [facility] Automated lymphocyte count a s percentage of total leukocytesOrdered By: Gustavo Castorena on 07-25-2024 Lymphocytes/100 WBC Auto (Unsp spec) 38.2 % 19-41 [facility] BUN/creatinine ratioOrdered By: Gustavo Castorena on 07-25-2024 Urea nitrogen/Creatinine [Mass ratio] 20.2 mg/mg High 10-20 [facility] BUN/creatinine ratio 20.2 RATIO High 10-20 [facility] Basophil percentageOrdered B y: Gustavo Castorena on 07-25-2024 Basophils/100 WBC (Bld) 1.1 % High 0-1 [facility] Basophil percentage 1.1 % High 0-1 [facility] Calcium [Mass/Vol]Ordered By : uGstavo Castorena on 07-25-2024 Serum or plasma calcium measurement (mass/volume) 7.9 mg/dL 7.6-11.0 [facility] Carbon dioxide, total [Moles /volume] in Central venous bloodOrdered By: Gustavo Castorena on 07-25-2024 CO2 [Moles/Vol] 19.9 mmol/L Low 21.0-32.0 [facility] Carbon dioxide, total [Moles/volume] in Central venous blood 19.9 mmol/L Low 21.0-32.0 [facility] Chloride assayOrdered By: Felix Castorena on 07-25-2024 Chloride [Moles/Vol] 115 mmol/L High 98-108 [facility] Chloride assay 115 mmol/L High 98-108 [facility] Creatinine [Mass/Vol]Ordered By: Gustavo Castorena on 07-25-2024 Serum creatinine measurement (mass/volume) 1.64 mg/dL High 0.70-1.20 [facility] Eosinophil percentageOrdered By: Gustavo Castorena on 07-25-2024 Eosinophils/100 WBC (Bld) 7.0 % High 0-5 [facility] Eosinophil percentage 7.0 % High 0-5 [facility] Erythrocyte distribution wid th (RBC) [Ratio]Ordered By: Gustavo Castorena on 07-25-2024 Erythrocyte distribution width ratio 16.9 % High 11.6-14.6 [facility] Erythrocyte distribution width standard deviation 62.4 fl High 35.1-43.9 [facility] Erythrocyte distribution wid th ratioOrdered By: Gustavo Castorena on 07-25-2024 Erythrocyte distribution width (RBC) [Ratio] 16.9 % High 11.6-14.6 [facility] Erythrocyte distribution wid th standard deviationOrdered By: Gustavo Castorena on 07-25-2024 Erythrocyte distribution width (RBC) [Ratio] 62.4 fl High 35.1-43.9 [facility] GFR/1.73 sq M.predicted kayden g non-blacks MDRD (S/P/Bld) [Vol rate/Area]Ordered By: Gustavo Castorena on 07-25-2024 Glomerular filtration rate (GFR) estimation/1.73 sq m using serum, plasma, or whole b 31 Low >60 [facility] Glomerular filtration rate ( GFR) estimation/1.73 sq m using serum, plasma, or whole bOrdered By: Gustavo Castorena on 07-25-2024 GFR/1.73 sq M.predicted among non-blacks MDRD (S/P/Bld) [Vol rate/Area] 31 mL/min/{1.73_m2} Low >60 [facility] Glucose [Mass/Vol]Ordered By : Gustavo Castorena on 07-25-2024 Serum glucose measurement (mass/volume) 79 mg/dL 70-99 [facility] Hematocrit Auto (Bld) [Volum e fraction]Ordered By: Gustavo Castorena on 07-25-2024 Hematocrit (Bld) [Volume fraction] 27.6 % Low 37-47 [facility] Automated blood hematocrit (percentage) 27.6 % Low 37-47 [facility] Hemoglobin measurementOrdere d By: Gustavo Castorena on 07-25-2024 Hemoglobin (Bld) [Mass/Vol] 8.7 g/dL Low 12.0-15.0 [facility] Hemoglobin measurement 8.7 g/dL Low 12.0-15.0 [facility] Immature granulocytes/100 WB C Auto (Bld)Ordered By: Gustavo Castorena on 07-25-2024 Immature granulocytes/100 WBC (Bld) 0.000 % 0.0-0.9 [facility] Automated immature granulocyte percentage 0.000 % 0.0-0.9 [facility] Lymphocytes Auto (Unsp spec) [#/Vol]Ordered By: Gustavo Castorena on 07-25-2024 Absolute lymphocyte count 1.75 X10^3/uL 0.83-4.51 [facility] Lymphocytes/100 WBC Auto (Un sp spec)Ordered By: Gustavo Castorena on 07-25-2024 Automated lymphocyte count as percentage of total leukocytes 38.2 % 19-41 [facility] MCV (RBC) [Entitic vol]Order ed By: Gustavo Castorena on 07-25-2024 MCV (mean corpuscular volume) determination 100.7 fL High 81-99 [facility] MCV (mean corpuscular volume ) determinationOrdered By: Gustavo Castorena on 07-25-2024 MCV (RBC) [Entitic vol] 100.7 fL High 81-99 [facility] Mean corpuscular hemoglobin (MCH) determinationOrdered By: Gustavo Castorena on 07-25-2024 MCH (RBC) [Entitic mass] 31.8 pg 27.0-32.0 [facility] Mean corpuscular hemoglobin (MCH) determination 31.8 pg 27.0-32.0 [facility] Mean corpuscular hemoglobin concentration (MCHC) determinationOrdered By: Gustavo Castorena on 07-25-2024 Mean corpuscular hemoglobin concentration (MCHC) determination 31.5 g/dL Low 32-36 [facility] Mean platelet volume determi nationOrdered By: Gustavo Castorena on 07-25-2024 Mean platelet volume determination 12.5 fl High 6.2-12.0 [facility] Monocyte percentageOrdered B y: Gusatvo Castorena on 07-25-2024 Monocytes/100 WBC (Bld) 8.7 % 0-10 [facility] Monocyte percentage 8.7 % 0-10 [facility] Neutrophil percentageOrdered By: Gustavo Castorena on 07-25-2024 Neutrophils/100 WBC (Bld) 45.0 % Low 47-70 [facility] Neutrophil percentage 45.0 % Low 47-70 [facility] Nucleated red blood cell per centageOrdered By: Gustavo Castorena on 07-25-2024 Nucleated red blood cell percentage 0 % 0-5 [facility] Platelet countOrdered By: Felix Castorena on 07-25-2024 Platelets (Bld) [#/Vol] 200 10*3/uL 150-450 [facility] Platelet count 200 K/mm3 150-450 [facility] Potassium (Unsp spec) [Mass/ Vol]Ordered By: Gustavo Castorena on 07-25-2024 Potassium measurement (mass/volume) 3.3 mmol/L 3.3-5.1 [facility] Potassium measurement (mass/ volume)Ordered By: Gustavo Castorena on 07-25-2024 Potassium (Unsp spec) [Mass/Vol] 3.3 mmol/L 3.3-5.1 [facility] RBC Auto (Bld) [#/Vol]Ordere d By: Gustavo Castorena on 07-25-2024 RBC (Bld) [#/Vol] 2.74 10*6/uL Low 4.2-5.4 [facility] Automated blood erythrocyte count 2.74 M/mm3 Low 4.2-5.4 [facility] Serum creatinine measurement (mass/volume)Ordered By: Gustavo Castorena on 07-25-2024 Creatinine [Mass/Vol] 1.64 mg/dL High 0.70-1.20 [facility] Serum glucose measurement (m ass/volume)Ordered By: Gustavo Castorena on 07-25-2024 Glucose [Mass/Vol] 79 mg/dL 70-99 [facility] Serum or plasma calcium farheen urement (mass/volume)Ordered By: Gustavo Castorena on 07-25-2024 Calcium [Mass/Vol] 7.9 mg/dL 7.6-11.0 [facility] Serum or plasma urea nitroge n measurement (mass/volume)Ordered By: Gustavo Castorena on 07-25-2024 Urea nitrogen [Mass/Vol] 33 mg/dL High 4-19 [facility] Sodium levelOrdered By: Sharri Castorena on 07-25-2024 Sodium [Moles/Vol] 144 mmol/L 133-145 [facility] Sodium level 144 mmol/L 133-145 [facility] TSH DL <= 0.005 mIU/L QnOrde red By: Gustavo Castorena on 07-25-2024 TSH Qn 1.750 uIU/mL 0.300-4.20 0 [facility] Serum or plasma thyroid stimulating hormone (TSH) measurement by high sensitivity met 1.750 uIU/mL 0.300-4.20 0 [facility] Urea nitrogen [Mass/Vol]Orde red By: Gustavo Castorena on 07-25-2024 Serum or plasma urea nitrogen measurement (mass/volume) 33 mg/dL High 4-19 [facility] White blood cell (WBC) count Ordered By: Gustavo Castorena on 07-25-2024 WBC (Bld) [#/Vol] 4.6 10*3/uL 4.4-11.0 [facility] White blood cell (WBC) count 4.6 K/mm3 4.4-11.0 [facility] Absolute lymphocyte countOrd ered By: Gustavo Castorena on 07-18-2024 Lymphocytes Auto (Unsp spec) [#/Vol] 1.66 10*3/uL 0.83-4.51 [facility] Absolute neutrophil countOrd ered By: Gustavo Castorena on 07-18-2024 Absolute neutrophil count 2.3 X10^3/uL 2.0-7.7 [facility] Anion gap [Moles/Vol]Ordered By: Gustavo Castorena on 07-18-2024 Anion gap in Serum or Plasma 11 - [facility] Anion gap in Serum or Plasma Ordered By: Gustavo Castorena on 07-18-2024 Anion gap [Moles/Vol] 11 mmol/L - [facility] Automated lymphocyte count a s percentage of total leukocytesOrdered By: Gustavo Castorena on 07-18-2024 Lymphocytes/100 WBC Auto (Unsp spec) 35.5 % - [facility] BUN/creatinine ratioOrdered By: Gustavo Castorena on 07-18-2024 Urea nitrogen/Creatinine [Mass ratio] 20.8 mg/mg High 10- [facility] BUN/creatinine ratio 20.8 RATIO High 10-20 [facility] Basophil percentageOrdered B y: Gustavo Castorena on 07-18-2024 Basophils/100 WBC (Bld) 0.9 % 0-1 [facility] Basophil percentage 0.9 % 0-1 [facility] Calcium [Mass/Vol]Ordered By : Gustavo Castorena on 07-18-2024 Serum or plasma calcium measurement (mass/volume) 8.2 mg/dL 7.6-11.0 [facility] Carbon dioxide, total [Moles /volume] in Central venous bloodOrdered By: Gustavo Castorena on 07-18-2024 CO2 [Moles/Vol] 20.2 mmol/L Low 21.0-32.0 [facility] Carbon dioxide, total [Moles/volume] in Central venous blood 20.2 mmol/L Low 21.0-32.0 [facility] Chloride assayOrdered By: Felix Castorena on 07-18-2024 Chloride [Moles/Vol] 113 mmol/L High 98-108 [facility] Chloride assay 113 mmol/L High 98-108 [facility] Creatinine [Mass/Vol]Ordered By: Gustavo Castorena on 07-18-2024 Serum creatinine measurement (mass/volume) 1.54 mg/dL High 0.70-1.20 [facility] Eosinophil percentageOrdered By: Gustavo Castorena on 07-18-2024 Eosinophils/100 WBC (Bld) 7.1 % High 0-5 [facility] Eosinophil percentage 7.1 % High 0-5 [facility] Erythrocyte distribution wid th (RBC) [Ratio]Ordered By: Gustavo Castorena on 07-18-2024 Erythrocyte distribution width ratio 16.6 % High 11.6-14.6 [facility] Erythrocyte distribution width standard deviation 61.6 fl High 35.1-43.9 [facility] Erythrocyte distribution wid th ratioOrdered By: Gustavo Castorena on 07-18-2024 Erythrocyte distribution width (RBC) [Ratio] 16.6 % High 11.6-14.6 [facility] Erythrocyte distribution wid th standard deviationOrdered By: Gustavo Castorena on 07-18-2024 Erythrocyte distribution width (RBC) [Ratio] 61.6 fl High 35.1-43.9 [facility] GFR/1.73 sq M.predicted kayden g non-blacks MDRD (S/P/Bld) [Vol rate/Area]Ordered By: Gustavo Castorena on 07-18-2024 Glomerular filtration rate (GFR) estimation/1.73 sq m using serum, plasma, or whole b 34 Low >60 [facility] Glomerular filtration rate ( GFR) estimation/1.73 sq m using serum, plasma, or whole bOrdered By: Gustavo Castorena on 07-18-2024 GFR/1.73 sq M.predicted among non-blacks MDRD (S/P/Bld) [Vol rate/Area] 34 mL/min/{1.73_m2} Low >60 [facility] Glucose [Mass/Vol]Ordered By : Gustavo Castorena on 07-18-2024 Serum glucose measurement (mass/volume) 79 mg/dL 70-99 [facility] Hematocrit Auto (Bld) [Volum e fraction]Ordered By: Gustavo Castorena on 07-18-2024 Hematocrit (Bld) [Volume fraction] 31.1 % Low 37-47 [facility] Automated blood hematocrit (percentage) 31.1 % Low 37-47 [facility] Hemoglobin measurementOrdere d By: Gustavo Castorena on 07-18-2024 Hemoglobin (Bld) [Mass/Vol] 9.6 g/dL Low 12.0-15.0 [facility] Hemoglobin measurement 9.6 g/dL Low 12.0-15.0 [facility] Immature granulocytes/100 WB C Auto (Bld)Ordered By: Gustavo Castorena on 07-18-2024 Immature granulocytes/100 WBC (Bld) 0.200 % 0.0-0.9 [facility] Automated immature granulocyte percentage 0.200 % 0.0-0.9 [facility] Lymphocytes Auto (Unsp spec) [#/Vol]Ordered By: Gustavo Castorena on 07-18-2024 Absolute lymphocyte count 1.66 X10^3/uL 0.83-4.51 [facility] Lymphocytes/100 WBC Auto (Un sp spec)Ordered By: Gustavo Castorena on 07-18-2024 Automated lymphocyte count as percentage of total leukocytes 35.5 % 19-41 [facility] MCV (RBC) [Entitic vol]Order ed By: Gustavo Castorena on 07-18-2024 MCV (mean corpuscular volume) determination 101.3 fL High 81-99 [facility] MCV (mean corpuscular volume ) determinationOrdered By: Gustavo Castorena on 07-18-2024 MCV (RBC) [Entitic vol] 101.3 fL High 81-99 [facility] Mean corpuscular hemoglobin (MCH) determinationOrdered By: Gustavo Castorena on 07-18-2024 MCH (RBC) [Entitic mass] 31.3 pg 27.0-32.0 [facility] Mean corpuscular hemoglobin (MCH) determination 31.3 pg 27.0-32.0 [facility] Mean corpuscular hemoglobin concentration (MCHC) determinationOrdered By: Gustavo Castorena on 07-18-2024 Mean corpuscular hemoglobin concentration (MCHC) determination 30.9 g/dL Low 32-36 [facility] Mean platelet volume determi nationOrdered By: Gustavo Castorena on 07-18-2024 Mean platelet volume determination 12.6 fl High 6.2-12.0 [facility] Monocyte percentageOrdered B y: Gustavo Castorena on 07-18-2024 Monocytes/100 WBC (Bld) 6.4 % 0-10 [facility] Monocyte percentage 6.4 % 0-10 [facility] Neutrophil percentageOrdered By: Gustavo Castorena on 07-18-2024 Neutrophils/100 WBC (Bld) 49.9 % 47-70 [facility] Neutrophil percentage 49.9 % 47-70 [facility] Nucleated red blood cell per centageOrdered By: Gustavo Castorena on 07-18-2024 Nucleated red blood cell percentage 0 % 0-5 [facility] Platelet countOrdered By: Felix Castorena on 07-18-2024 Platelets (Bld) [#/Vol] 229 10*3/uL 150-450 [facility] Platelet count 229 K/mm3 150-450 [facility] Potassium (Unsp spec) [Mass/ Vol]Ordered By: Gustavo Castorena on 07-18-2024 Potassium measurement (mass/volume) 3.2 mmol/L Low 3.3-5.1 [facility] Potassium measurement (mass/ volume)Ordered By: Gustavo Castorena on 07-18-2024 Potassium (Unsp spec) [Mass/Vol] 3.2 mmol/L Low 3.3-5.1 [facility] RBC Auto (Bld) [#/Vol]Ordere d By: Gustavo Castorena on 07-18-2024 RBC (Bld) [#/Vol] 3.07 10*6/uL Low 4.2-5.4 [facility] Automated blood erythrocyte count 3.07 M/mm3 Low 4.2-5.4 [facility] Serum creatinine measurement (mass/volume)Ordered By: Gustavo Castorena on 07-18-2024 Creatinine [Mass/Vol] 1.54 mg/dL High 0.70-1.20 [facility] Serum glucose measurement (m ass/volume)Ordered By: Gustavo Castorena on 07-18-2024 Glucose [Mass/Vol] 79 mg/dL 70-99 [facility] Serum or plasma calcium farheen urement (mass/volume)Ordered By: Gustavo Castorena on 07-18-2024 Calcium [Mass/Vol] 8.2 mg/dL 7.6-11.0 [facility] Serum or plasma urea nitroge n measurement (mass/volume)Ordered By: Gustavo Castorena on 07-18-2024 Urea nitrogen [Mass/Vol] 32 mg/dL High 07-23 [facility] Sodium levelOrdered By: Sharri Castorena on 07-18-2024 Sodium [Moles/Vol] 144 mmol/L 133-145 [facility] Sodium level 144 mmol/L 133-145 [facility] Urea nitrogen [Mass/Vol]Orde red By: Gustavo Castorena on 07-18-2024 Serum or plasma urea nitrogen measurement (mass/volume) 32 mg/dL High 07-23 [facility] White blood cell (WBC) count Ordered By: Gustavo Castorena on 07-18-2024 WBC (Bld) [#/Vol] 4.7 10*3/uL 4.4-11.0 [facility] White blood cell (WBC) count 4.7 K/mm3 4.4-11.0 [facility] Absolute lymphocyte countOrd ered By: osbaldo Bradevelynechela on 07-11-2024 Lymphocytes Auto (Unsp spec) [#/Vol] 1.36 10*3/uL 0.83-4.51 [facility] Absolute neutrophil countOrd ered By: Felixdonnyrubiamaryann Brownleeevelynechela on 07-11-2024 Absolute neutrophil count 1.2 X10^3/uL Low 2.0-7.7 [facility] Anion gap [Moles/Vol]Ordered By: Gustavo Castorena on 07-11-2024 Anion gap in Serum or Plasma 11 5- [facility] Anion gap in Serum or Plasma Ordered By[facility] on 07-11-2024 Anion gap [Moles/Vol] 11 mmol/L 5- [facility] Automated lymphocyte count a s percentage of total leukocytesOrdered By: Gustavo Castorena on 07-11-2024 Lymphocytes/100 WBC Auto (Unsp spec) 43.9 % High 19-41 [facility] BUN/creatinine ratioOrdered By: Felixosbaldo Castorena on 07-11-2024 Urea nitrogen/Creatinine [Mass ratio] 17.0 mg/mg 10-20 [facility] BUN/creatinine ratio 17.0 RATIO 10-20 [facility] Basophil percentageOrdered B y: Gustavo Castorena on 07-11-2024 Basophils/100 WBC (Bld) 1.0 % 0-1 [facility] Basophil percentage 1.0 % 0-1 [facility] Calcium [Mass/Vol]Ordered By : Gustavo Castorena on 07-11-2024 Serum or plasma calcium measurement (mass/volume) 8.0 mg/dL 7.6-11.0 [facility] Carbon dioxide, total [Moles /volume] in Central venous bloodOrdered By: Gustavo Castorena on 07-11-2024 CO2 [Moles/Vol] 19.1 mmol/L Low 21.0-32.0 [facility] Carbon dioxide, total [Moles/volume] in Central venous blood 19.1 mmol/L Low 21.0-32.0 [facility] Chloride assayOrdered By: Felix Castorena on 07-11-2024 Chloride [Moles/Vol] 112 mmol/L High 98-108 [facility] Chloride assay 112 mmol/L High 98-108 [facility] Creatinine [Mass/Vol]Ordered By: Gustavo Castorena on 07-11-2024 Serum creatinine measurement (mass/volume) 1.55 mg/dL High 0.70-1.20 [facility] Eosinophil percentageOrdered By: Gustavo Castorena on 07-11-2024 Eosinophils/100 WBC (Bld) 10.0 % High 0-5 [facility] Eosinophil percentage 10.0 % High 0-5 [facility] Erythrocyte distribution wid th (RBC) [Ratio]Ordered By: Gustavo Castorena on 07-11-2024 Erythrocyte distribution width ratio 16.9 % High 11.6-14.6 [facility] Erythrocyte distribution width standard deviation 64.1 fl High 35.1-43.9 [facility] Erythrocyte distribution wid th ratioOrdered By: Gustavo Castorena on 07-11-2024 Erythrocyte distribution width (RBC) [Ratio] 16.9 % High 11.6-14.6 [facility] Erythrocyte distribution wid th standard deviationOrdered By: Gustavo Castorena on 07-11-2024 Erythrocyte distribution width (RBC) [Ratio] 64.1 fl High 35.1-43.9 [facility] GFR/1.73 sq M.predicted kayden g non-blacks MDRD (S/P/Bld) [Vol rate/Area]Ordered By: Gustavo Castorena on 07-11-2024 Glomerular filtration rate (GFR) estimation/1.73 sq m using serum, plasma, or whole b 33 Low >60 [facility] Glomerular filtration rate ( GFR) estimation/1.73 sq m using serum, plasma, or whole bOrdered By: Gustavo Castorena on 07-11-2024 GFR/1.73 sq M.predicted among non-blacks MDRD (S/P/Bld) [Vol rate/Area] 33 mL/min/{1.73_m2} Low >60 [facility] Glucose [Mass/Vol]Ordered By : Gustavo Castorena on 07-11-2024 Serum glucose measurement (mass/volume) 74 mg/dL 70-99 [facility] Hematocrit Auto (Bld) [Volum e fraction]Ordered By: Gustavo Castorena on 07-11-2024 Hematocrit (Bld) [Volume fraction] 30.2 % Low 37-47 [facility] Automated blood hematocrit (percentage) 30.2 % Low 37-47 [facility] Hemoglobin measurementOrdere d By: Gustavo Castorena on 07-11-2024 Hemoglobin (Bld) [Mass/Vol] 9.2 g/dL Low 12.0-15.0 [facility] Hemoglobin measurement 9.2 g/dL Low 12.0-15.0 [facility] Immature granulocytes/100 WB C Auto (Bld)Ordered By: Gustavo Castorena on 07-11-2024 Immature granulocytes/100 WBC (Bld) 0.000 % 0.0-0.9 [facility] Automated immature granulocyte percentage 0.000 % 0.0-0.9 [facility] Lymphocytes Auto (Unsp spec) [#/Vol]Ordered By: Gustavo Castorena on 07-11-2024 Absolute lymphocyte count 1.36 X10^3/uL 0.83-4.51 [facility] Lymphocytes/100 WBC Auto (Un sp spec)Ordered By: Gustavo Castorena on 07-11-2024 Automated lymphocyte count as percentage of total leukocytes 43.9 % High 19-41 [facility] MCV (RBC) [Entitic vol]Order ed By: Gustavo Castorena on 07-11-2024 MCV (mean corpuscular volume) determination 102.4 fL High 81-99 [facility] MCV (mean corpuscular volume ) determinationOrdered By: Gustavo Castorena on 07-11-2024 MCV (RBC) [Entitic vol] 102.4 fL High 81-99 [facility] Mean corpuscular hemoglobin (MCH) determinationOrdered By: Gustavo Castorena on 07-11-2024 MCH (RBC) [Entitic mass] 31.2 pg 27.0-32.0 [facility] Mean corpuscular hemoglobin (MCH) determination 31.2 pg 27.0-32.0 [facility] Mean corpuscular hemoglobin concentration (MCHC) determinationOrdered By: Felixdonnyrubiamaryann Brownleeevelynechela on 07-11-2024 Mean corpuscular hemoglobin concentration (MCHC) determination 30.5 g/dL Low 32-36 [facility] Mean platelet volume determi nationOrdered By: Gustavo Bradevelynechela on 07-11-2024 Mean platelet volume determination 12.8 fl High 6.2-12.0 [facility] Monocyte percentageOrdered B y: Felixdonnyanamaria Bradevelynechela on 07-11-2024 Monocytes/100 WBC (Bld) 7.4 % 0-10 [facility] Monocyte percentage 7.4 % 0-10 [facility] Neutrophil percentageOrdered By: Gustavo Brownleeevelynechela on 07-11-2024 Neutrophils/100 WBC (Bld) 37.7 % Low 47-70 [facility] Neutrophil percentage 37.7 % Low 47-70 [facility] Nucleated red blood cell per centageOrdered By: Sharrirubiamaryann Brownleeevelynechela on 07-11-2024 Nucleated red blood cell percentage 0 % 0-5 [facility] Platelet countOrdered By: Felix osbaldo Bradevelynechela on 07-11-2024 Platelets (Bld) [#/Vol] 159 10*3/uL 150-450 [facility] Platelet count 159 K/mm3 150-450 [facility] Potassium (Unsp spec) [Mass/ Vol]Ordered By: Gustavo Castorena on 07-11-2024 Potassium measurement (mass/volume) 3.7 mmol/L 3.3-5.1 [facility] Potassium measurement (mass/ volume)Ordered By: Felixdonnyrubiamaryann Brownleeevelynechela on 07-11-2024 Potassium (Unsp spec) [Mass/Vol] 3.7 mmol/L 3.3-5.1 [facility] RBC Auto (Bld) [#/Vol]Ordere d By: Gustavo Castorena on 07-11-2024 RBC (Bld) [#/Vol] 2.95 10*6/uL Low 4.2-5.4 [facility] Automated blood erythrocyte count 2.95 M/mm3 Low 4.2-5.4 [facility] Serum creatinine measurement (mass/volume)Ordered By: Gustavo Castorena on 07-11-2024 Creatinine [Mass/Vol] 1.55 mg/dL High 0.70-1.20 [facility] Serum glucose measurement (m ass/volume)Ordered By: Gustavo Castorena on 07-11-2024 Glucose [Mass/Vol] 74 mg/dL 70-99 [facility] Serum or plasma calcium farheen urement (mass/volume)Ordered By: Gustavo Castorena on 07-11-2024 Calcium [Mass/Vol] 8.0 mg/dL 7.6-11.0 [facility] Serum or plasma urea nitroge n measurement (mass/volume)Ordered By: Gustavo Castorena on 07-11-2024 Urea nitrogen [Mass/Vol] 26 mg/dL High 07-23 [facility] Sodium levelOrdered By: Sharri Castorena on 07-11-2024 Sodium [Moles/Vol] 143 mmol/L 133-145 [facility] Sodium level 143 mmol/L 133-145 [facility] Urea nitrogen [Mass/Vol]Orde red By: Gustavo Castorena on 07-11-2024 Serum or plasma urea nitrogen measurement (mass/volume) 26 mg/dL High 07-23 [facility] White blood cell (WBC) count Ordered By: Gustavo Castorena on 07-11-2024 WBC (Bld) [#/Vol] 3.1 10*3/uL Low 4.4-11.0 [facility] White blood cell (WBC) count 3.1 K/mm3 Low 4.4-11.0 [facility] Absolute lymphocyte countOrd ered By: Gustavo Castorena on 07-04-2024 Lymphocytes Auto (Unsp spec) [#/Vol] 1.68 10*3/uL 0.83-4.51 [facility] Absolute neutrophil countOrd ered By: Gustavo Castorena on 07-04-2024 Absolute neutrophil count 2.0 X10^3/uL 2.0-7.7 [facility] Anion gap [Moles/Vol]Ordered By: Gustavo Castorena on 07-04-2024 Anion gap in Serum or Plasma 10 - [facility] Anion gap in Serum or Plasma Ordered By: Gustavo Castorena on 07-04-2024 Anion gap [Moles/Vol] 10 mmol/L - [facility] Automated lymphocyte count a s percentage of total leukocytesOrdered By: Gustavo Castorena on 07-04-2024 Lymphocytes/100 WBC Auto (Unsp spec) 38.1 % - [facility] BUN/creatinine ratioOrdered By: Gustavo Castorena on 07-04-2024 Urea nitrogen/Creatinine [Mass ratio] 17.0 mg/mg - [facility] BUN/creatinine ratio 17.0 RATIO - [facility] Basophil percentageOrdered B y: Gustavo Castorena on 07-04-2024 Basophils/100 WBC (Bld) 1.4 % High 0-1 [facility] Basophil percentage 1.4 % High 0-1 [facility] Calcium [Mass/Vol]Ordered By : Gustavo Castorena on 07-04-2024 Serum or plasma calcium measurement (mass/volume) 8.2 mg/dL 7.6-11.0 [facility] Carbon dioxide, total [Moles /volume] in Central venous bloodOrdered By: Gustavo Castorena on 07-04-2024 CO2 [Moles/Vol] 18.5 mmol/L Low 21.0-32.0 [facility] Carbon dioxide, total [Moles/volume] in Central venous blood 18.5 mmol/L Low 21.0-32.0 [facility] Chloride assayOrdered By: Felix Castorena on 07-04-2024 Chloride [Moles/Vol] 115 mmol/L High 98-108 [facility] Chloride assay 115 mmol/L High 98-108 [facility] Creatinine [Mass/Vol]Ordered By: Gustavo Castorena on 07-04-2024 Serum creatinine measurement (mass/volume) 1.51 mg/dL High 0.70-1.20 [facility] Eosinophil percentageOrdered By: Gustavo Castorena on 07-04-2024 Eosinophils/100 WBC (Bld) 7.5 % High 0-5 [facility] Eosinophil percentage 7.5 % High 0-5 [facility] Erythrocyte distribution wid th (RBC) [Ratio]Ordered By: Gustavo Castorena on 07-04-2024 Erythrocyte distribution width ratio 17.2 % High 11.6-14.6 [facility] Erythrocyte distribution width standard deviation 64.0 fl High 35.1-43.9 [facility] Erythrocyte distribution wid th ratioOrdered By: Gustavo Castorena on 07-04-2024 Erythrocyte distribution width (RBC) [Ratio] 17.2 % High 11.6-14.6 [facility] Erythrocyte distribution wid th standard deviationOrdered By: Gustavo Castorena on 07-04-2024 Erythrocyte distribution width (RBC) [Ratio] 64.0 fl High 35.1-43.9 [facility] GFR/1.73 sq M.predicted kayden g non-blacks MDRD (S/P/Bld) [Vol rate/Area]Ordered By: Gustavo Castorena on 07-04-2024 Glomerular filtration rate (GFR) estimation/1.73 sq m using serum, plasma, or whole b 34 Low >60 [facility] Glomerular filtration rate ( GFR) estimation/1.73 sq m using serum, plasma, or whole bOrdered By: Gustavo Castorena on 07-04-2024 GFR/1.73 sq M.predicted among non-blacks MDRD (S/P/Bld) [Vol rate/Area] 34 mL/min/{1.73_m2} Low >60 [facility] Glucose [Mass/Vol]Ordered By : Gustavo Castorena on 07-04-2024 Serum glucose measurement (mass/volume) 71 mg/dL 70-99 [facility] Hematocrit Auto (Bld) [Volum e fraction]Ordered By: Gustavo Castorena on 07-04-2024 Hematocrit (Bld) [Volume fraction] 29.0 % Low 37-47 [facility] Automated blood hematocrit (percentage) 29.0 % Low 37-47 [facility] Hemoglobin measurementOrdere d By: Gustavo Castorena on 07-04-2024 Hemoglobin (Bld) [Mass/Vol] 8.9 g/dL Low 12.0-15.0 [facility] Hemoglobin measurement 8.9 g/dL Low 12.0-15.0 [facility] Immature granulocytes/100 WB C Auto (Bld)Ordered By: Gustavo Castorena on 07-04-2024 Immature granulocytes/100 WBC (Bld) 0.200 % 0.0-0.9 [facility] Automated immature granulocyte percentage 0.200 % 0.0-0.9 [facility] Lymphocytes Auto (Unsp spec) [#/Vol]Ordered By: Gustavo Castorena on 07-04-2024 Absolute lymphocyte count 1.68 X10^3/uL 0.83-4.51 [facility] Lymphocytes/100 WBC Auto (Un sp spec)Ordered By: Gustavo Castorena on 07-04-2024 Automated lymphocyte count as percentage of total leukocytes 38.1 % 19-41 [facility] MCV (RBC) [Entitic vol]Order ed By: Gustavo Castorena on 07-04-2024 MCV (mean corpuscular volume) determination 102.1 fL High 81-99 [facility] MCV (mean corpuscular volume ) determinationOrdered By: Gustavo Castorena on 07-04-2024 MCV (RBC) [Entitic vol] 102.1 fL High 81-99 [facility] Mean corpuscular hemoglobin (MCH) determinationOrdered By: Gustavo Castorena on 07-04-2024 MCH (RBC) [Entitic mass] 31.3 pg 27.0-32.0 [facility] Mean corpuscular hemoglobin (MCH) determination 31.3 pg 27.0-32.0 [facility] Mean corpuscular hemoglobin concentration (MCHC) determinationOrdered By: Gustavo Castorena on 07-04-2024 Mean corpuscular hemoglobin concentration (MCHC) determination 30.7 g/dL Low 32-36 [facility] Mean platelet volume determi nationOrdered By: Gustavo Castorena on 07-04-2024 Mean platelet volume determination 12.7 fl High 6.2-12.0 [facility] Monocyte percentageOrdered B y: Gustavo Castorena on 07-04-2024 Monocytes/100 WBC (Bld) 7.9 % 0-10 [facility] Monocyte percentage 7.9 % 0-10 [facility] Neutrophil percentageOrdered By: Felixodnnyrubiamaryann Brownleeevelynehcela on 07-04-2024 Neutrophils/100 WBC (Bld) 44.9 % Low 47-70 [facility] Neutrophil percentage 44.9 % Low 47-70 [facility] Nucleated red blood cell per centageOrdered By: Gustavo Castorena on 07-04-2024 Nucleated red blood cell percentage 0 % 0-5 [facility] Platelet countOrdered By: Felix yulianamaryann Brownleeevelynechela on 07-04-2024 Platelets (Bld) [#/Vol] 187 10*3/uL 150-450 [facility] Platelet count 187 K/mm3 150-450 [facility] Potassium (Unsp spec) [Mass/ Vol]Ordered By: Gustavo Castorena on 07-04-2024 Potassium measurement (mass/volume) 3.3 mmol/L 3.3-5.1 [facility] Potassium measurement (mass/ volume)Ordered By: Gustavo Castorena on 07-04-2024 Potassium (Unsp spec) [Mass/Vol] 3.3 mmol/L 3.3-5.1 [facility] RBC Auto (Bld) [#/Vol]Ordere d By: Gustavo Castorena on 07-04-2024 RBC (Bld) [#/Vol] 2.84 10*6/uL Low 4.2-5.4 [facility] Automated blood erythrocyte count 2.84 M/mm3 Low 4.2-5.4 [facility] Serum creatinine measurement (mass/volume)Ordered By: Gustavo Castorena on 07-04-2024 Creatinine [Mass/Vol] 1.51 mg/dL High 0.70-1.20 [facility] Serum glucose measurement (m ass/volume)Ordered By: Gustavo Castorena on 07-04-2024 Glucose [Mass/Vol] 71 mg/dL 70-99 [facility] Serum or plasma calcium farheen urement (mass/volume)Ordered By: Gustavo Castorena on 07-04-2024 Calcium [Mass/Vol] 8.2 mg/dL 7.6-11.0 [facility] Serum or plasma urea nitroge n measurement (mass/volume)Ordered By: Gustavo Castorena on 07-04-2024 Urea nitrogen [Mass/Vol] 26 mg/dL High 07-23 [facility] Sodium levelOrdered By: Sharri riosyuridia Kell on 07-04-2024 Sodium [Moles/Vol] 144 mmol/L 133-145 [facility] Sodium level 144 mmol/L 133-145 [facility] Urea nitrogen [Mass/Vol]Orde red By: Gustavo Castorena on 07-04-2024 Serum or plasma urea nitrogen measurement (mass/volume) 26 mg/dL High - [facility] White blood cell (WBC) count Ordered By: Gustavo Castorena on 07-04-2024 WBC (Bld) [#/Vol] 4.4 10*3/uL 4.4-11.0 [facility] White blood cell (WBC) count 4.4 K/mm3 4.4-11.0 [facility] Absolute lymphocyte countOrd ered By: Gustavo Castorena on 06-27-2024 Lymphocytes Auto (Unsp spec) [#/Vol] 1.65 10*3/uL 0.83-4.51 [facility] Absolute neutrophil countOrd ered By: Gustavo Castorena on 06-27-2024 Absolute neutrophil count 2.3 X10^3/uL 2.0-7.7 [facility] Anion gap [Moles/Vol]Ordered By: Gustavo Castorena on 06-27-2024 Anion gap in Serum or Plasma 10 5-15 [facility] Anion gap in Serum or Plasma Ordered By: Gustavo Castorena on 06-27-2024 Anion gap [Moles/Vol] 10 mmol/L 5-15 [facility] Automated lymphocyte count a s percentage of total leukocytesOrdered By: Gustavo Castorena on 06-27-2024 Lymphocytes/100 WBC Auto (Unsp spec) 35.6 % - [facility] BUN/creatinine ratioOrdered By: Gustavo Castorena on 06-27-2024 Urea nitrogen/Creatinine [Mass ratio] 21.3 mg/mg High 10-20 [facility] BUN/creatinine ratio 21.3 RATIO High 10-20 [facility] Basophil percentageOrdered B y: Gustavo Castorena on 06-27-2024 Basophils/100 WBC (Bld) 0.9 % 0-1 [facility] Basophil percentage 0.9 % 0-1 [facility] Calcium [Mass/Vol]Ordered By : Gustavo Castorena on 06-27-2024 Serum or plasma calcium measurement (mass/volume) 8.2 mg/dL 7.6-11.0 [facility] Carbon dioxide, total [Moles /volume] in Central venous bloodOrdered By: Gustavo Castorena on 06-27-2024 CO2 [Moles/Vol] 19.6 mmol/L Low 21.0-32.0 [facility] Carbon dioxide, total [Moles/volume] in Central venous blood 19.6 mmol/L Low 21.0-32.0 [facility] Chloride assayOrdered By: Felix Castorena on 06-27-2024 Chloride [Moles/Vol] 112 mmol/L High 98-108 [facility] Chloride assay 112 mmol/L High 98-108 [facility] Creatinine [Mass/Vol]Ordered By: Gustavo Castorena on 06-27-2024 Serum creatinine measurement (mass/volume) 1.31 mg/dL High 0.70-1.20 [facility] Eosinophil percentageOrdered By: Gustavo Castorena on 06-27-2024 Eosinophils/100 WBC (Bld) 7.1 % High 0-5 [facility] Erythrocyte distribution wid th (RBC) [Ratio]Ordered By: Gustavo Castorena on 06-27-2024 Erythrocyte distribution width ratio 17.0 % High 11.6-14.6 [facility] Erythrocyte distribution width standard deviation 65.1 fl High 35.1-43.9 [facility] Erythrocyte distribution wid th ratioOrdered By: Gustavo Castorena on 06-27-2024 Erythrocyte distribution width (RBC) [Ratio] 17.0 % High 11.6-14.6 [facility] Erythrocyte distribution wid th standard deviationOrdered By: Gustavo Castorena on 06-27-2024 Erythrocyte distribution width (RBC) [Ratio] 65.1 fl High 35.1-43.9 [facility] GFR/1.73 sq M.predicted kayden g non-blacks MDRD (S/P/Bld) [Vol rate/Area]Ordered By: Gustavo Castorena on 06-27-2024 Glomerular filtration rate (GFR) estimation/1.73 sq m using serum, plasma, or whole b 41 Low >60 [facility] Glomerular filtration rate ( GFR) estimation/1.73 sq m using serum, plasma, or whole bOrdered By: Gustavo Castorena on 06-27-2024 GFR/1.73 sq M.predicted among non-blacks MDRD (S/P/Bld) [Vol rate/Area] 41 mL/min/{1.73_m2} Low >60 [facility] Glucose [Mass/Vol]Ordered By : Gustavo Castorena on 06-27-2024 Serum glucose measurement (mass/volume) 76 mg/dL 70-99 [facility] Hematocrit Auto (Bld) [Volum e fraction]Ordered By: Gustavo Castorena on 06-27-2024 Hematocrit (Bld) [Volume fraction] 28.9 % Low 37-47 [facility] Automated blood hematocrit (percentage) 28.9 % Low 37-47 [facility] Hemoglobin measurementOrdere d By: Gustavo Castorena on 06-27-2024 Hemoglobin (Bld) [Mass/Vol] 8.6 g/dL Low 12.0-15.0 [facility] Hemoglobin measurement 8.6 g/dL Low 12.0-15.0 [facility] Immature granulocytes/100 WB C Auto (Bld)Ordered By: Gustavo Castorena on 06-27-2024 Immature granulocytes/100 WBC (Bld) 0.200 % 0.0-0.9 [facility] Automated immature granulocyte percentage 0.200 % 0.0-0.9 [facility] Lymphocytes Auto (Unsp spec) [#/Vol]Ordered By: Gustavo Castorena on 06-27-2024 Absolute lymphocyte count 1.65 X10^3/uL 0.83-4.51 [facility] Lymphocytes/100 WBC Auto (Un sp spec)Ordered By: Gustavo Castorena on 06-27-2024 Automated lymphocyte count as percentage of total leukocytes 35.6 % 19-41 [facility] MCV (RBC) [Entitic vol]Order ed By: Gustavo Castorena on 06-27-2024 MCV (mean corpuscular volume) determination 102.8 fL High 81-99 [facility] MCV (mean corpuscular volume ) determinationOrdered By: Gustavo Castorena on 06-27-2024 MCV (RBC) [Entitic vol] 102.8 fL High 81-99 [facility] Mean corpuscular hemoglobin (MCH) determinationOrdered By: Gustavo Castorena on 06-27-2024 MCH (RBC) [Entitic mass] 30.6 pg 27.0-32.0 [facility] Mean corpuscular hemoglobin (MCH) determination 30.6 pg 27.0-32.0 [facility] Mean corpuscular hemoglobin concentration (MCHC) determinationOrdered By: Gustavo Castorena on 06-27-2024 Mean corpuscular hemoglobin concentration (MCHC) determination 29.8 g/dL Low 32-36 [facility] Mean platelet volume determi nationOrdered By: Gustavo Castorena on 06-27-2024 Mean platelet volume determination 12.5 fl High 6.2-12.0 [facility] Monocyte percentageOrdered B y: Gustavo Castorena on 06-27-2024 Monocytes/100 WBC (Bld) 7.1 % 0-10 [facility] Monocyte percentage 7.1 % High 0-5 [facility] Neutrophil percentageOrdered By: Gustavo Castorena on 06-27-2024 Neutrophils/100 WBC (Bld) 49.1 % 47-70 [facility] Neutrophil percentage 49.1 % 47-70 [facility] No Panel InformationOrdered By: Gustavo Castorena on 06-27-2024 1+ [facility] Nucleated red blood cell per centageOrdered By: Gustavo Castorena on 06-27-2024 Nucleated red blood cell percentage 0 % 0-5 [facility] Platelet countOrdered By: Felix Castorena on 06-27-2024 Platelets (Bld) [#/Vol] 201 10*3/uL 150-450 [facility] Platelet count 201 K/mm3 150-450 [facility] Potassium (Unsp spec) [Mass/ Vol]Ordered By: Gustavo Castorena on 06-27-2024 Potassium measurement (mass/volume) 3.9 mmol/L 3.3-5.1 [facility] Potassium measurement (mass/ volume)Ordered By: Gustavo Castorena on 06-27-2024 Potassium (Unsp spec) [Mass/Vol] 3.9 mmol/L 3.3-5.1 [facility] RBC Auto (Bld) [#/Vol]Ordere d By: Gustavo Castorena on 06-27-2024 RBC (Bld) [#/Vol] 2.81 10*6/uL Low 4.2-5.4 [facility] Automated blood erythrocyte count 2.81 M/mm3 Low 4.2-5.4 [facility] Serum creatinine measurement (mass/volume)Ordered By: Gustavo Castorena on 06-27-2024 Creatinine [Mass/Vol] 1.31 mg/dL High 0.70-1.20 [facility] Serum glucose measurement (m ass/volume)Ordered By: Gustavo Castorena on 06-27-2024 Glucose [Mass/Vol] 76 mg/dL 70-99 [facility] Serum or plasma calcium farheen urement (mass/volume)Ordered By: Gustavo Castorena on 06-27-2024 Calcium [Mass/Vol] 8.2 mg/dL 7.6-11.0 [facility] Serum or plasma urea nitroge n measurement (mass/volume)Ordered By: Gustavo Castorena on 06-27-2024 Urea nitrogen [Mass/Vol] 28 mg/dL High 4-19 [facility] Sodium levelOrdered By: Sharri Castorena on 06-27-2024 Sodium [Moles/Vol] 141 mmol/L 133-145 [facility] Sodium level 141 mmol/L 133-145 [facility] Urea nitrogen [Mass/Vol]Orde red By: Gustavo Castorena on 06-27-2024 Serum or plasma urea nitrogen measurement (mass/volume) 28 mg/dL High 4-19 [facility] White blood cell (WBC) count Ordered By: Gustavo Castorena on 06-27-2024 WBC (Bld) [#/Vol] 4.6 10*3/uL 4.4-11.0 [facility] White blood cell (WBC) count 4.6 K/mm3 4.4-11.0 [facility] Absolute lymphocyte countOrd ered By: Gustavo Castorena on 06-20-2024 Lymphocytes Auto (Unsp spec) [#/Vol] 1.65 10*3/uL 0.83-4.51 [facility] Absolute neutrophil countOrd ered By: Gustavo Castorena on 06-20-2024 Absolute neutrophil count 2.5 X10^3/uL 2.0-7.7 [facility] Anion gap [Moles/Vol]Ordered By: Gustavo Castorena on 06-20-2024 Anion gap in Serum or Plasma 9 5-15 [facility] Anion gap in Serum or Plasma Ordered By: Gustavo Castorena on 06-20-2024 Anion gap [Moles/Vol] 9 mmol/L 5-15 [facility] Automated lymphocyte count a s percentage of total leukocytesOrdered By: Gustavo Castorena on 06-20-2024 Lymphocytes/100 WBC Auto (Unsp spec) 34.5 % 19-41 [facility] BUN/creatinine ratioOrdered By: Gustavo Castorena on 06-20-2024 Urea nitrogen/Creatinine [Mass ratio] 22.3 mg/mg High 10-20 [facility] BUN/creatinine ratio 22.3 RATIO High 10-20 [facility] Basophil percentageOrdered B y: Gustavo Castorena on 06-20-2024 Basophils/100 WBC (Bld) 1.3 % High 0-1 [facility] [facility] Basophil percentage 1.3 % High 0-1 [facility] Calcium [Mass/Vol]Ordered By : Gustavo Castorena on 06-20-2024 Serum or plasma calcium measurement (mass/volume) 8.5 mg/dL 7.6-11.0 [facility] Carbon dioxide, total [Moles /volume] in Central venous bloodOrdered By: Gustavo Castorena on 06-20-2024 CO2 [Moles/Vol] 20.3 mmol/L Low 21.0-32.0 [facility] Carbon dioxide, total [Moles/volume] in Central venous blood 20.3 mmol/L Low 21.0-32.0 [facility] Chloride assayOrdered By: Felix Castorena on 06-20-2024 Chloride [Moles/Vol] 113 mmol/L High 98-108 [facility] Chloride assay 113 mmol/L High 98-108 [facility] Creatinine [Mass/Vol]Ordered By: Gustavo Castorena on 06-20-2024 Serum creatinine measurement (mass/volume) 1.75 mg/dL High 0.70-1.20 [facility] Eosinophil percentageOrdered By: Gustavo Castorena on 06-20-2024 Eosinophils/100 WBC (Bld) 5.6 % High 0-5 [facility] Eosinophil percentage 5.6 % High 0-5 [facility] Erythrocyte distribution wid th (RBC) [Ratio]Ordered By: Gustavo Castorena on 06-20-2024 Erythrocyte distribution width ratio 16.8 % High 11.6-14.6 [facility] Erythrocyte distribution width standard deviation 63.8 fl High 35.1-43.9 [facility] Erythrocyte distribution wid th ratioOrdered By: Gustavo Castorena on 06-20-2024 Erythrocyte distribution width (RBC) [Ratio] 16.8 % High 11.6-14.6 [facility] Erythrocyte distribution wid th standard deviationOrdered By: Gustavo Castorena on 06-20-2024 Erythrocyte distribution width (RBC) [Ratio] 63.8 fl High 35.1-43.9 [facility] GFR/1.73 sq M.predicted kayden g non-blacks MDRD (S/P/Bld) [Vol rate/Area]Ordered By: Gustavo Castorena on 06-20-2024 Glomerular filtration rate (GFR) estimation/1.73 sq m using serum, plasma, or whole b 29 Low >60 [facility] Glomerular filtration rate ( GFR) estimation/1.73 sq m using serum, plasma, or whole bOrdered By: Gustavo Castorena on 06-20-2024 GFR/1.73 sq M.predicted among non-blacks MDRD (S/P/Bld) [Vol rate/Area] 29 mL/min/{1.73_m2} Low >60 [facility] Glucose [Mass/Vol]Ordered By : Gustavo Castorena on 06-20-2024 Serum glucose measurement (mass/volume) 76 mg/dL 70-99 [facility] Hematocrit Auto (Bld) [Volum e fraction]Ordered By: Gustavo Castorena on 06-20-2024 Hematocrit (Bld) [Volume fraction] 29.1 % Low 37-47 [facility] Automated blood hematocrit (percentage) 29.1 % Low 37-47 [facility] Hemoglobin measurementOrdere d By: Gustavo Castorena on 06-20-2024 Hemoglobin (Bld) [Mass/Vol] 8.6 g/dL Low 12.0-15.0 [facility] Hemoglobin measurement 8.6 g/dL Low 12.0-15.0 [facility] Immature granulocytes/100 WB C Auto (Bld)Ordered By: Gustavo Castorena on 06-20-2024 Immature granulocytes/100 WBC (Bld) 0.200 % 0.0-0.9 [facility] Automated immature granulocyte percentage 0.200 % 0.0-0.9 [facility] Lymphocytes Auto (Unsp spec) [#/Vol]Ordered By: Gustavo Castorena on 06-20-2024 Absolute lymphocyte count 1.65 X10^3/uL 0.83-4.51 [facility] Lymphocytes/100 WBC Auto (Un sp spec)Ordered By: Gustavo Castorena on 06-20-2024 Automated lymphocyte count as percentage of total leukocytes 34.5 % 19-41 [facility] MCV (RBC) [Entitic vol]Order ed By: Gustavo Castorena on 06-20-2024 MCV (mean corpuscular volume) determination 104.3 fL High 81-99 [facility] MCV (mean corpuscular volume ) determinationOrdered By: Gustavo Castorena on 06-20-2024 MCV (RBC) [Entitic vol] 104.3 fL High 81-99 [facility] Mean corpuscular hemoglobin (MCH) determinationOrdered By: Gustavo Castorena on 06-20-2024 MCH (RBC) [Entitic mass] 30.8 pg 27.0-32.0 [facility] Mean corpuscular hemoglobin (MCH) determination 30.8 pg 27.0-32.0 [facility] Mean corpuscular hemoglobin concentration (MCHC) determinationOrdered By: Gustavo Castorena on 06-20-2024 Mean corpuscular hemoglobin concentration (MCHC) determination 29.6 g/dL Low 32-36 [facility] Mean platelet volume determi nationOrdered By: Gustavo Castorena on 06-20-2024 Mean platelet volume determination 12.5 fl High 6.2-12.0 [facility] Monocyte percentageOrdered B y: Gustavo Castorena on 06-20-2024 Monocytes/100 WBC (Bld) 5.9 % 0-10 [facility] Monocyte percentage 5.9 % 0-10 [facility] Neutrophil percentageOrdered By: Gustavo Castorena on 06-20-2024 Neutrophils/100 WBC (Bld) 52.5 % 47-70 [facility] Neutrophil percentage 52.5 % 47-70 [facility] Nucleated red blood cell per centageOrdered By: Gustavo Castorena on 06-20-2024 Nucleated red blood cell percentage 0 % 0-5 [facility] Platelet countOrdered By: Felix Castorena on 06-20-2024 Platelets (Bld) [#/Vol] 258 10*3/uL 150-450 [facility] Platelet count 258 K/mm3 150-450 [facility] Potassium (Unsp spec) [Mass/ Vol]Ordered By: Gustavo Castorena on 06-20-2024 Potassium measurement (mass/volume) 4.4 mmol/L 3.3-5.1 [facility] Potassium measurement (mass/ volume)Ordered By: Gustavo Castorena on 06-20-2024 Potassium (Unsp spec) [Mass/Vol] 4.4 mmol/L 3.3-5.1 [facility] RBC Auto (Bld) [#/Vol]Ordere d By: Gustavo Castorena on 06-20-2024 RBC (Bld) [#/Vol] 2.79 10*6/uL Low 4.2-5.4 [facility] Automated blood erythrocyte count 2.79 M/mm3 Low 4.2-5.4 [facility] Serum creatinine measurement (mass/volume)Ordered By: Gustavo Castorena on 06-20-2024 Creatinine [Mass/Vol] 1.75 mg/dL High 0.70-1.20 [facility] Serum glucose measurement (m ass/volume)Ordered By: Gustavo Castorena on 06-20-2024 Glucose [Mass/Vol] 76 mg/dL 70-99 [facility] Serum or plasma calcium farheen urement (mass/volume)Ordered By: Gustavo Castorena on 06-20-2024 Calcium [Mass/Vol] 8.5 mg/dL 7.6-11.0 [facility] Serum or plasma urea nitroge n measurement (mass/volume)Ordered By: Gustavo Castorena on 06-20-2024 Urea nitrogen [Mass/Vol] 39 mg/dL High 07-23 [facility] Sodium levelOrdered By: Sharri Castorena on 06-20-2024 Sodium [Moles/Vol] 142 mmol/L 133-145 [facility] Sodium level 142 mmol/L 133-145 [facility] Urea nitrogen [Mass/Vol]Orde red By: Gustavo Castorena on 06-20-2024 Serum or plasma urea nitrogen measurement (mass/volume) 39 mg/dL High - [facility] White blood cell (WBC) count Ordered By: Gustavo Castorena on 06-20-2024 WBC (Bld) [#/Vol] 4.8 10*3/uL 4.4-11.0 [facility] White blood cell (WBC) count 4.8 K/mm3 4.4-11.0 [facility] ALP [Catalytic activity/Vol] Ordered By: Gustavo Castorena on 06-13-2024 Serum or plasma alkaline phosphatase measurement 86 U/L 35-104 [facility] ALT [Catalytic activity/Vol] Ordered By: Gustavo Castorena on 06-13-2024 Serum or plasma alanine aminotransferase (ALT) measurement 11 U/L <35 [facility] Absolute lymphocyte countOrd ered By: Gustavo Castorena on 06-13-2024 Lymphocytes Auto (Unsp spec) [#/Vol] 1.75 10*3/uL 0.83-4.51 [facility] Absolute neutrophil countOrd ered By: Gustavo Castorena on 06-13-2024 Absolute neutrophil count 2.3 X10^3/uL 2.0-7.7 [facility] Albumin [Mass/Vol]Ordered By : Sharrinew frankenmaryann Castorena on 06-13-2024 Serum or plasma albumin measurement (mass/volume) 2.5 g/dL Low 3.4-4.8 [facility] Albumin/Globulin [Mass ratio ]Ordered By: Gustavo Castorena on 06-13-2024 Serum or plasma albumin/globulin mass ratio 0.9 RATIO 0.9-2.4 [facility] Anion gap [Moles/Vol]Ordered By: Gustavo Castorena on 06-13-2024 Anion gap in Serum or Plasma 13 5-15 [facility] Anion gap in Serum or Plasma Ordered By: donnynew frankenmaryann Castorena on 06-13-2024 Anion gap [Moles/Vol] 13 mmol/L 5-15 [facility] Automated lymphocyte count a s percentage of total leukocytesOrdered By: Gustavo Castorena on 06-13-2024 Lymphocytes/100 WBC Auto (Unsp spec) 36.6 % 19-41 [facility] BUN/creatinine ratioOrdered By: Gustavo Castorena on 06-13-2024 Urea nitrogen/Creatinine [Mass ratio] 26.0 mg/mg High 10-20 [facility] BUN/creatinine ratio 26.0 RATIO High 10-20 [facility] Basophil percentageOrdered B y: Gustavo Castorena on 06-13-2024 Basophils/100 WBC (Bld) 1.0 % 0-1 [facility] Basophil percentage 1.0 % 0-1 [facility] Bilirubin, totalOrdered By: Gustavo Castorena on 06-13-2024 Bilirubin [Mass/Vol] 0.17 mg/dL 0.00-1.30 [facility] Bilirubin, total 0.17 mg/dL 0.00-1.30 [facility] Calcium [Mass/Vol]Ordered By : Gustavo Castorena on 06-13-2024 Serum or plasma calcium measurement (mass/volume) 8.6 mg/dL 7.6-11.0 [facility] Calculated very low density lipoprotein (VLDL) cholesterol measurementOrdered By: Gustavo Castorena on 06-13-2024 Calculated very low density lipoprotein (VLDL) cholesterol measurement 21 mg/dL 5-40 [facility] Calculated very low density lipoprotein (VLDL) cholesterol measurement 21 mg/dL 5-40 [facility] Carbon dioxide, total [Moles /volume] in Central venous bloodOrdered By: Gustavo Castorena on 06-13-2024 CO2 [Moles/Vol] 18.2 mmol/L Low 21.0-32.0 [facility] Carbon dioxide, total [Moles/volume] in Central venous blood 18.2 mmol/L Low 21.0-32.0 [facility] Chloride assayOrdered By: Felix Castorena on 06-13-2024 Chloride [Moles/Vol] 113 mmol/L High 98-108 [facility] Chloride assay 113 mmol/L High 98-108 [facility] Cholesterol in HDL [Mass/Vol ]Ordered By: Gustavo Castorena on 06-13-2024 Serum or plasma cholesterol in HDL measurement (mass/volume) 27 mg/dL Low >40 [facility] Creatinine [Mass/Vol]Ordered By: Gustavo Castorena on 06-13-2024 Serum creatinine measurement (mass/volume) 1.60 mg/dL High 0.70-1.20 [facility] Eosinophil percentageOrdered By: Gustavo Castorena on 06-13-2024 Eosinophils/100 WBC (Bld) 7.5 % High 0-5 [facility] Eosinophil percentage 7.5 % High 0-5 [facility] Erythrocyte distribution wid th (RBC) [Ratio]Ordered By: Gustavo Castorena on 06-13-2024 Erythrocyte distribution width ratio 16.5 % High 11.6-14.6 [facility] Erythrocyte distribution width standard deviation 61.5 fl High 35.1-43.9 [facility] Erythrocyte distribution wid th ratioOrdered By: Gustavo Castorena on 06-13-2024 Erythrocyte distribution width (RBC) [Ratio] 16.5 % High 11.6-14.6 [facility] Erythrocyte distribution wid th standard deviationOrdered By: Gustavo Castorena on 06-13-2024 Erythrocyte distribution width (RBC) [Ratio] 61.5 fl High 35.1-43.9 [facility] GFR/1.73 sq M.predicted kayden g non-blacks MDRD (S/P/Bld) [Vol rate/Area]Ordered By: Gustavo Castorena on 06-13-2024 Glomerular filtration rate (GFR) estimation/1.73 sq m using serum, plasma, or whole b 32 Low >60 [facility] Glomerular filtration rate ( GFR) estimation/1.73 sq m using serum, plasma, or whole bOrdered By: Gustavo Castorena on 06-13-2024 GFR/1.73 sq M.predicted among non-blacks MDRD (S/P/Bld) [Vol rate/Area] 32 mL/min/{1.73_m2} Low >60 [facility] Glucose [Mass/Vol]Ordered By : Gustavo Castorena on 06-13-2024 Serum glucose measurement (mass/volume) 83 mg/dL 70-99 [facility] Hematocrit Auto (Bld) [Volum e fraction]Ordered By: Gustavo Castorena on 06-13-2024 Hematocrit (Bld) [Volume fraction] 29.2 % Low 37-47 [facility] Automated blood hematocrit (percentage) 29.2 % Low 37-47 [facility] Hemoglobin measurementOrdere d By: Gustavo Castorena on 06-13-2024 Hemoglobin (Bld) [Mass/Vol] 8.7 g/dL Low 12.0-15.0 [facility] Hemoglobin measurement 8.7 g/dL Low 12.0-15.0 [facility] Immature granulocytes/100 WB C Auto (Bld)Ordered By: Gustavo Castorena on 06-13-2024 Immature granulocytes/100 WBC (Bld) 0.200 % 0.0-0.9 [facility] Automated immature granulocyte percentage 0.200 % 0.0-0.9 [facility] LDL calc ser/plasOrdered By: Gustavo Castorena on 06-13-2024 Cholesterol in LDL [Mass/Vol] 56 mg/dL [facility] LDL calc ser/plas 56 mg/dL [facility] Lymphocytes Auto (Unsp spec) [#/Vol]Ordered By: Gustavo Castorena on 06-13-2024 Absolute lymphocyte count 1.75 X10^3/uL 0.83-4.51 [facility] Lymphocytes/100 WBC Auto (Un sp spec)Ordered By: Gustavo Castorena on 06-13-2024 Automated lymphocyte count as percentage of total leukocytes 36.6 % 19-41 [facility] MCV (RBC) [Entitic vol]Order ed By: Gustavo Castorena on 06-13-2024 MCV (mean corpuscular volume) determination 101.4 fL High 81-99 [facility] MCV (mean corpuscular volume ) determinationOrdered By: Gustavo Castorena on 06-13-2024 MCV (RBC) [Entitic vol] 101.4 fL High 81-99 [facility] Magnesium (Unsp spec) [Mass/ Vol]Ordered By: Gustavo Castorena on 06-13-2024 Magnesium measurement (mass/volume) 2.0 mg/dL 1.5-2.2 [facility] Magnesium measurement (mass/ volume)Ordered By: Gustavo Castorena on 06-13-2024 Magnesium (Unsp spec) [Mass/Vol] 2.0 mg/dL 1.5-2.2 [facility] Mean corpuscular hemoglobin (MCH) determinationOrdered By: Gustavo Castorena on 06-13-2024 MCH (RBC) [Entitic mass] 30.2 pg 27.0-32.0 [facility] Mean corpuscular hemoglobin (MCH) determination 30.2 pg 27.0-32.0 [facility] Mean corpuscular hemoglobin concentration (MCHC) determinationOrdered By: Gustavo Castorena on 06-13-2024 Mean corpuscular hemoglobin concentration (MCHC) determination 29.8 g/dL Low 32-36 [facility] Mean platelet volume determi nationOrdered By: Gustavo Castorena on 06-13-2024 Mean platelet volume determination 12.1 fl High 6.2-12.0 [facility] Monocyte percentageOrdered B y: Gustavo Castorena on 06-13-2024 Monocytes/100 WBC (Bld) 7.3 % 0-10 [facility] Monocyte percentage 7.3 % 0-10 [facility] Neutrophil percentageOrdered By: Gustavo Castorena on 06-13-2024 Neutrophils/100 WBC (Bld) 47.4 % 47-70 [facility] Neutrophil percentage 47.4 % 47-70 [facility] No Panel InformationOrdered By: Gustavo Castorena on 06-13-2024 20 U/L <32 [facility] Nucleated red blood cell per centageOrdered By: osbaldo Castorena on 06-13-2024 Nucleated red blood cell percentage 0 % 0-5 [facility] Platelet countOrdered By: Felix Castorena on 06-13-2024 Platelets (Bld) [#/Vol] 267 10*3/uL 150-450 [facility] Platelet count 267 K/mm3 150-450 [facility] Potassium (Unsp spec) [Mass/ Vol]Ordered By: Gustavo Castorena on 06-13-2024 Potassium measurement (mass/volume) 4.2 mmol/L 3.3-5.1 [facility] Potassium measurement (mass/ volume)Ordered By: Gustavo Castorena on 06-13-2024 Potassium (Unsp spec) [Mass/Vol] 4.2 mmol/L 3.3-5.1 [facility] RBC Auto (Bld) [#/Vol]Ordere d By: Gustavo Castorena on 06-13-2024 RBC (Bld) [#/Vol] 2.88 10*6/uL Low 4.2-5.4 [facility] Automated blood erythrocyte count 2.88 M/mm3 Low 4.2-5.4 [facility] Screening total cholesterol/ high density lipoprotein (HDL) cholesterol ratioOrdered By: Gustavo Castorena on 06-13-2024 Screening total cholesterol/high density lipoprotein (HDL) cholesterol ratio 3.85 [facility] Serum creatinine measurement (mass/volume)Ordered By: Gustavo Castorena on 06-13-2024 Creatinine [Mass/Vol] 1.60 mg/dL High 0.70-1.20 [facility] Serum globulin measurementOr dered By: Gustavo Castorena on 06-13-2024 Globulin (S) [Mass/Vol] 2.7 g/dL 2.2-4.2 [facility] Serum globulin measurement 2.7 g/dL 2.2-4.2 [facility] Serum glucose measurement (m ass/volume)Ordered By: Gustavo Castorena on 06-13-2024 Glucose [Mass/Vol] 83 mg/dL 70-99 [facility] Serum or plasma alanine huertas otransferase (ALT) measurementOrdered By: Gustavo Castorena on 06-13-2024 ALT [Catalytic activity/Vol] 11 U/L <35 [facility] Serum or plasma albumin farheen urement (mass/volume)Ordered By: Gustavo Castorena on 06-13-2024 Albumin [Mass/Vol] 2.5 g/dL Low 3.4-4.8 [facility] Serum or plasma albumin/glob ulin mass ratioOrdered By: Gustavo Castorena on 06-13-2024 Albumin/Globulin [Mass ratio] 0.9 {ratio} 0.9-2.4 [facility] Serum or plasma alkaline mariya sphatase measurementOrdered By: Gustavo Castorena on 06-13-2024 ALP [Catalytic activity/Vol] 86 U/L 35-104 [facility] Serum or plasma calcium farheen urement (mass/volume)Ordered By: Gustavo Castorena on 06-13-2024 Calcium [Mass/Vol] 8.6 mg/dL 7.6-11.0 [facility] Serum or plasma cholesterol in HDL measurement (mass/volume)Ordered By: Gustavo Castorena on 06-13-2024 Cholesterol in HDL [Mass/Vol] 27 mg/dL Low >40 [facility] Serum or plasma cholesterol measurement (mass/volume)Ordered By: Gustavo Castorena on 06-13-2024 Cholesterol [Mass/Vol] 104 mg/dL <201 [facility] Serum or plasma cholesterol measurement (mass/volume) 104 mg/dL <199 [facility] Serum or plasma urea nitroge n measurement (mass/volume)Ordered By: Gustavo Castorena on 06-13-2024 Urea nitrogen [Mass/Vol] 42 mg/dL High - [facility] Serum phosphorus measurement Ordered By: Gustavo Castorena on 06-13-2024 Serum phosphorus measurement 4.1 mg/dL 2.7-4.5 [facility] Sodium levelOrdered By: Sharri Castorena on 06-13-2024 Sodium [Moles/Vol] 144 mmol/L 133-145 [facility] Sodium level 144 mmol/L 133-145 [facility] TSH DL <= 0.005 mIU/L QnOrde red By: Gustavo Castorena on 06-13-2024 TSH Qn 3.000 uIU/mL 0.300-4.20 0 [facility] Serum or plasma thyroid stimulating hormone (TSH) measurement by high sensitivity met 3.000 uIU/mL 0.300-4.20 0 [facility] Total proteinOrdered By: Rolo Castorena on 06-13-2024 Protein [Mass/Vol] 5.2 g/dL Low 5.9-8.4 [facility] Total protein 5.2 g/dL Low 5.9-8.4 [facility] Urea nitrogen [Mass/Vol]Orde red By: Gustavo Castorena on 06-13-2024 Serum or plasma urea nitrogen measurement (mass/volume) 42 mg/dL High 4-19 [facility] Vitamin D, 25-hydroxyOrdered By: Gustavo Castorena on 06-13-2024 Vitamin D, 25-hydroxy 20.2 ng/mL Low 30-100 [facility] White blood cell (WBC) count Ordered By: Gustavo Castorena on 06-13-2024 WBC (Bld) [#/Vol] 4.8 10*3/uL 4.4-11.0 [facility] White blood cell (WBC) count 4.8 K/mm3 4.4-11.0 [facility] Albumin [Mass/Vol]Ordered By : Mari Mehta on 06-10-2024 Serum or plasma albumin measurement (mass/volume) 2.7 g/dL Low 3.4-4.8 [facility] Anion gap [Moles/Vol]Ordered By: Mari Mehta on 06-10-2024 Anion gap in Serum or Plasma 14 5-15 [facility] Anion gap in Serum or Plasma Ordered By: Mari Mehta on 06-10-2024 Anion gap [Moles/Vol] 14 mmol/L 5-15 [facility] BUN/creatinine ratioOrdered By: Mari Mehta on 06-10-2024 Urea nitrogen/Creatinine [Mass ratio] 26.1 mg/mg High 10-20 [facility] BUN/creatinine ratio 26.1 RATIO High 10-20 [facility] Calcium [Mass/Vol]Ordered By : Mari Mehta on 06-10-2024 Serum or plasma calcium measurement (mass/volume) 8.3 mg/dL 7.6-11.0 [facility] Carbon dioxide, total [Moles /volume] in Central venous bloodOrdered By: Mari Mehta on 06-10-2024 CO2 [Moles/Vol] 20.9 mmol/L Low 21.0-32.0 [facility] Carbon dioxide, total [Moles/volume] in Central venous blood 20.9 mmol/L Low 21.0-32.0 [facility] Chloride assayOrdered By: Manjeet Mehta on 06-10-2024 Chloride [Moles/Vol] 107 mmol/L 98-108 [facility] Chloride assay 107 mmol/L 98-108 [facility] Creatinine [Mass/Vol]Ordered By: Mari Mehta on 06-10-2024 Serum creatinine measurement (mass/volume) 2.03 mg/dL High 0.70-1.20 [facility] Estimation of creatinine jackie aranceOrdered By: Mari Mehta on 06-10-2024 Estimation of creatinine clearance 23.01 ml/min Low 50-250 [facility] GFR/1.73 sq M.predicted kayden g non-blacks MDRD (S/P/Bld) [Vol rate/Area]Ordered By: Mari Mehta on 06-10-2024 Glomerular filtration rate (GFR) estimation/1.73 sq m using serum, plasma, or whole b 24 Low >60 [facility] Glomerular filtration rate ( GFR) estimation/1.73 sq m using serum, plasma, or whole bOrdered By: Mari Mehta on 06-10-2024 GFR/1.73 sq M.predicted among non-blacks MDRD (S/P/Bld) [Vol rate/Area] 24 mL/min/{1.73_m2} Low >60 [facility] Glucose [Mass/Vol]Ordered By : Mari Mehta on 06-10-2024 Serum glucose measurement (mass/volume) 88 mg/dL 70-99 [facility] Potassium (Unsp spec) [Mass/ Vol]Ordered By: Mari Mehta on 06-10-2024 Potassium measurement (mass/volume) 4.2 mmol/L 3.3-5.1 [facility] Potassium measurement (mass/ volume)Ordered By: Mari Mehta on 06-10-2024 Potassium (Unsp spec) [Mass/Vol] 4.2 mmol/L 3.3-5.1 [facility] Renal Profileon 06-10-2024 Albumin [Mass/Vol] 2.7 g/dL Low 3.4-4.8 [facility] Comment on above: Performed By: #### L [id number] ####[facility] [id number] [place], [place], [id number] BUN/CRE 26.1 RATIO High 10-20 [facility] Comment on above: Performed By: #### L [id number] ####[facility] [id number] [place], [place], [id number] Calcium [Mass/Vol] 8.3 mg/dL Normal 7.6-11.0 [facility] Comment on above: Performed By: #### [id number] ####[facility] [id number] [place], [address] Chloride [Moles/Vol] 107 mmol/L Normal 98-108 [facility] Comment on above: Performed By: #### [id number] ####[facility] [id number] [place], [address] CO2 [Moles/Vol] 20.9 mmol/L Low 21.0-32.0 [facility] Comment on above: Performed By: #### [id number] ####[facility] [id number] [place], [address] Creatinine [Mass/Vol] 2.03 mg/dL High 0.70-1.20 [facility] Comment on above: Performed By: #### L 500.3600 ####[facility] [address] [place], [address] ECRCL 23.01 ml/min Low 50-250 [facility] Comment on above: Performed By: #### L 500.3600 ####[facility] [address] [place], [address] GAP 14 Normal 5-15 [facility] Comment on above: Performed By: #### L 500.3600 ####[facility] [address] [place], [address] GFR/1.73 sq M.predicted among non-blacks MDRD (S/P/Bld) [Vol rate/Area] 24 mL/min/{1.73_m2} Low >60 [facility] Comment on above: Result Comment: mL/m in/1.73m2 CKD-EPI Creatinine Equation (2020) Performed By: #### L 500.3600 ####[facility] [address] [place], [address] Glucose [Mass/Vol] 88 mg/dL Normal 70-99 [facility] Comment on above: Performed By: #### L 500.3600 ####[facility] [address] [place], [address] Phosphate [Mass/Vol] 5.2 mg/dL High 2.7-4.5 [facility] Comment on above: Performed By: #### L 500.3600 ####[facility] [address] [place], [address] Potassium [Moles/Vol] 4.2 mmol/L Normal 3.3-5.1 [facility] Comment on above: Performed By: #### L 500.3600 ####[facility] [address] [place], [address] Sodium [Moles/Vol] 142 mmol/L Normal 133-145 [facility] Comment on above: Performed By: #### L 500.3600 ####[facility] [address] [place], [address] Urea nitrogen [Mass/Vol] 53 mg/dL High 4-19 [facility] Comment on above: Performed By: #### L 500.3600 ####[facility] [address] [place], [address] Serum creatinine measurement (mass/volume)Ordered By: Mari Mehta on 06-10-2024 Creatinine [Mass/Vol] 2.03 mg/dL High 0.70-1.20 [facility] Serum glucose measurement (m ass/volume)Ordered By: Mari Mehta on 06-10-2024 Glucose [Mass/Vol] 88 mg/dL 70-99 [facility] Serum or plasma albumin farheen urement (mass/volume)Ordered By: Mari Mehta on 06-10-2024 Albumin [Mass/Vol] 2.7 g/dL Low 3.4-4.8 [facility] Serum or plasma calcium farheen urement (mass/volume)Ordered By: Mari Mehta on 06-10-2024 Calcium [Mass/Vol] 8.3 mg/dL 7.6-11.0 [facility] Serum or plasma urea nitroge n measurement (mass/volume)Ordered By: Mari Janine on 06-10-2024 Urea nitrogen [Mass/Vol] 53 mg/dL High 4- [facility] Serum phosphorus measurement Ordered By: Mari Janine on 06-10-2024 Serum phosphorus measurement 5.2 mg/dL High 2.7-4.5 [facility] Sodium levelOrdered By: Mari Janine on 06-10-2024 Sodium [Moles/Vol] 142 mmol/L 133-145 [facility] Sodium level 142 mmol/L 133-145 [facility] Urea nitrogen [Mass/Vol]Orde red By: Mari Mehta on 06-10-2024 Serum or plasma urea nitrogen measurement (mass/volume) 53 mg/dL High -19 [facility] Renal Profileon 06-09-2024 Albumin [Mass/Vol] 2.7 g/dL Low 3.4-4.8 [facility] Comment on above: Performed By: #### L 500.3600 ####[facility] [address] [place], [address] BUN/CRE 25.7 RATIO High 10-20 [facility] Comment on above: Performed By: #### L 500.3600 ####[facility] [address] [place], [address] Calcium [Mass/Vol] 8.4 mg/dL Normal 7.6-11.0 [facility] Comment on above: Performed By: #### L 500.3600 ####[facility] [address] [place], [address] Chloride [Moles/Vol] 103 mmol/L Normal 98-108 [facility] Comment on above: Performed By: #### L 500.3600 ####[facility] [address] [place], [address] CO2 [Moles/Vol] 21.7 mmol/L Normal 21.0-32.0 [facility] Comment on above: Performed By: #### L 500.3600 ####[facility] [address] [place], [address] Creatinine [Mass/Vol] 2.14 mg/dL High 0.70-1.20 [facility] Comment on above: Performed By: #### L 500.3600 ####[facility] [address] [place], [address] ECRCL 21.83 ml/min Low 50-250 [facility] Comment on above: Performed By: #### L 500.3600 ####[facility] [address] [place], [address] GAP 16 High 5-15 [facility] Comment on above: Performed By: #### L 500.3600 ####[facility] [address] [place], [address] GFR/1.73 sq M.predicted among non-blacks MDRD (S/P/Bld) [Vol rate/Area] 23 mL/min/{1.73_m2} Low >60 [facility] Comment on above: Result Comment: mL/m in/1.73m2 CKD-EPI Creatinine Equation (2020) Performed By: #### L 500.3600 ####[facility] [address] [place], [address] Glucose [Mass/Vol] 86 mg/dL Normal 70-99 [facility] Comment on above: Performed By: #### L 500.3600 ####[facility] [address] [place], [address] Potassium [Moles/Vol] 4.1 mmol/L Normal 3.3-5.1 [facility] Comment on above: Performed By: #### L 500.3600 ####[facility] [address] [place], [address] Sodium [Moles/Vol] 140 mmol/L Normal 133-145 [facility] Comment on above: Performed By: #### L 500.3600 ####[facility] [address] [place], [address] Urea nitrogen [Mass/Vol] 55 mg/dL High 4-19 [facility] Comment on above: Performed By: #### L 500.3600 ####[facility] [address] [place], [address] CBC-Complete Blood Cnt No Di ffon 06-07-2024 Erythrocyte distribution width (RBC) [Ratio] 16.4 % High 11.6-14.6 [facility] Comment on above: Performed By: #### L 500.3600, L100.0500 ####[facility] [address] [place], [address] Hematocrit (Bld) [Volume fraction] 30.1 % Low 37-47 [facility] Comment on above: Performed By: #### L 500.3600, L100.0500 ####[facility] [address] [place], [address] Hemoglobin (Bld) [Mass/Vol] 9.3 g/dL Low 12.0-15.0 [facility] Comment on above: Performed By: #### L 500.3600, L100.0500 ####[facility] [address] [place], [address] MCH (RBC) [Entitic mass] 30.7 pg Normal 27.0-32.0 [facility] Comment on above: Performed By: #### L 500.3600, L100.0500 ####[facility] [address] [place], [address] MCHC (RBC) [Mass/Vol] 30.9 g/dL Low 32-36 [facility] Comment on above: Performed By: #### L 500.3600, L100.0500 ####[facility] [address] [place], [address] MCV (RBC) [Entitic vol] 99.3 fL High 81-99 [facility] Comment on above: Performed By: #### L 500.3600, L100.0500 ####[facility] [address] [place], [address] Platelet mean volume (Bld) [Entitic vol] 12.4 fL High 6.2-12.0 [facility] Comment on above: Performed By: #### L 500.3600, L100.0500 ####[facility] [address] [place], [address] Platelets (Bld) [#/Vol] 241 10*3/uL Normal 150-450 [facility] Comment on above: Performed By: #### L 500.3600, L100.0500 ####[facility] [address] [place], [address] RBC (Bld) [#/Vol] 3.03 10*6/uL Low 4.2-5.4 [facility] Comment on above: Performed By: #### L 500.3600, L100.0500 ####[facility] [address] [place], [address] RDW SD 59.5 fl High 35.1-43.9 [facility] Comment on above: Performed By: #### L 500.3600, L100.0500 ####[facility] [address] [place], [address] WBC (Bld) [#/Vol] 7.8 10*3/uL Normal 4.4-11.0 [facility] Comment on above: Performed By: #### L 500.3600, L100.0500 ####[facility] [address] [place], [address] Chloride measurementOrdered By: Mari Mehta on 06-07-2024 Chloride [Moles/Vol] 103 mmol/L 96-108 [facility] Chloride measurement 103 mmol/L 96-108 [facility] Erythrocyte distribution wid th (RBC) [Ratio]Ordered By: Mari Mehta on 06-07-2024 Erythrocyte distribution width ratio 16.4 % High 11.6-14.6 [facility] Erythrocyte distribution width standard deviation 59.5 fl High 35.1-43.9 [facility] Erythrocyte distribution wid th ratioOrdered By: Mari Mehta on 06-07-2024 Erythrocyte distribution width (RBC) [Ratio] 16.4 % High 11.6-14.6 [facility] Erythrocyte distribution wid th standard deviationOrdered By: Mari Mehta on 06-07-2024 Erythrocyte distribution width (RBC) [Ratio] 59.5 fl High 35.1-43.9 [facility] Hematocrit Auto (Bld) [Volum e fraction]Ordered By: Mari Mehta on 06-07-2024 Hematocrit (Bld) [Volume fraction] 30.1 % Low 37-47 [facility] Automated blood hematocrit (percentage) 30.1 % Low 37-47 [facility] Hemoglobin measurementOrdere d By: Mari Mehta on 06-07-2024 Hemoglobin (Bld) [Mass/Vol] 9.3 g/dL Low 12.0-15.0 [facility] Hemoglobin measurement 9.3 g/dL Low 12.0-15.0 [facility] MCV (RBC) [Entitic vol]Order ed By: Mari Mehta on 06-07-2024 MCV (mean corpuscular volume) determination 99.3 fL High 81-99 [facility] MCV (mean corpuscular volume ) determinationOrdered By: Mari Mehta on 06-07-2024 MCV (RBC) [Entitic vol] 99.3 fL High 81-99 [facility] Mean corpuscular hemoglobin (MCH) determinationOrdered By: Mari Mehta on 06-07-2024 MCH (RBC) [Entitic mass] 30.7 pg 27.0-32.0 [facility] Mean corpuscular hemoglobin (MCH) determination 30.7 pg 27.0-32.0 [facility] Mean corpuscular hemoglobin concentration (MCHC) determinationOrdered By: Mari Mehta on 06-07-2024 Mean corpuscular hemoglobin concentration (MCHC) determination 30.9 g/dL Low 32-36 [facility] Mean platelet volume determi nationOrdered By: Mari Mehta on 06-07-2024 Mean platelet volume determination 12.4 fl High 6.2-12.0 [facility] Platelet countOrdered By: Manjeet Mehta on 06-07-2024 Platelets (Bld) [#/Vol] 241 10*3/uL 150-450 [facility] Platelet count 241 K/mm3 150-450 [facility] RBC Auto (Bld) [#/Vol]Ordere d By: Mari Mehta on 06-07-2024 RBC (Bld) [#/Vol] 3.03 10*6/uL Low 4.2-5.4 [facility] Automated blood erythrocyte count 3.03 M/mm3 Low 4.2-5.4 [facility] Renal Profileon 06-07-2024 Albumin [Mass/Vol] 2.7 g/dL Low 3.4-4.8 [facility] Comment on above: Performed By: #### L 500.3600, L100.0500 ####[facility] [address] [place], [address] BUN/CRE 24.2 RATIO High 10-20 [facility] Comment on above: Performed By: #### L 500.3600, L100.0500 ####[facility] [address] [place], [address] Calcium [Mass/Vol] 8.4 mg/dL Normal 7.6-11.0 [facility] Comment on above: Performed By: #### L 500.3600, L100.0500 ####[facility] [address] [place], [address] Chloride [Moles/Vol] 103 mmol/L Normal 96-108 [facility] Comment on above: Performed By: #### L 500.3600, L100.0500 ####[facility] [address] [place], [address] CO2 [Moles/Vol] 25.0 mmol/L Normal 22.0-29.0 [facility] Comment on above: Performed By: #### L 500.3600, L100.0500 ####[facility] [address] [place], [address] Creatinine [Mass/Vol] 1.78 mg/dL High 0.70-1.20 [facility] Comment on above: Performed By: #### L 500.3600, L100.0500 ####[facility] [address] [place], [address] ECRCL 26.74 ml/min Low 50-250 [facility] Comment on above: Performed By: #### L 500.3600, L100.0500 ####[facility] [address] [place], [address] GFR/1.73 sq M.predicted among non-blacks MDRD (S/P/Bld) [Vol rate/Area] 28 mL/min/{1.73_m2} Low >60 [facility] Comment on above: Result Comment: mL/m in/1.73m2 CKD-EPI Creatinine Equation (2020) Performed By: #### L 500.3600, L100.0500 ####[facility] [address] [place], [address] Glucose [Mass/Vol] 89 mg/dL Normal 70-99 [facility] Comment on above: Performed By: #### L 500.3600, L100.0500 ####[facility] [address] [place], [address] Phosphate [Mass/Vol] 4.6 mg/dL High 2.7-4.5 [facility] Comment on above: Performed By: #### L 500.3600, L100.0500 ####[facility] [address] [place], [address] Potassium [Moles/Vol] 3.9 mmol/L Normal 3.3-5.1 [facility] Comment on above: Performed By: #### L 500.3600, L100.0500 ####[facility] [address] [place], [address] Sodium [Moles/Vol] 139 mmol/L Normal 133-145 [facility] Comment on above: Performed By: #### L 500.3600, L100.0500 ####[facility] [address] [place], [address] Urea nitrogen [Mass/Vol] 43 mg/dL High 4-19 [facility] Comment on above: Performed By: #### L 500.3600, L100.0500 ####[facility] [address] [place], [address] White blood cell (WBC) count Ordered By: Mari Mehta on 06-07-2024 WBC (Bld) [#/Vol] 7.8 10*3/uL 4.4-11.0 [facility] White blood cell (WBC) count 7.8 K/mm3 4.4-11.0 [facility] Wrist min 3 Viewson 06-07-19 25 Wrist min 3 Views Normal [facility] Basic Metabolic Profile (BMP )on 06-03-2024 Anion gap [Moles/Vol] 12 mmol/L Normal 5-15 [facility] Comment on above: Performed By: #### L 500.2500, L501.2300, L100.0600 ####[facility] [address] [place], [address] BUN/CRE 21.7 RATIO High 10-20 [facility] Comment on above: Performed By: #### L 500.2500, L501.2300, L100.0600 ####[facility] [address] [place], [address] Calcium [Mass/Vol] 8.2 mg/dL Normal 7.6-11.0 [facility] Comment on above: Performed By: #### L 500.2500, L501.2300, L100.0600 ####[facility] [address] [place], [address] Chloride [Moles/Vol] 104 mmol/L Normal 96-108 [facility] Comment on above: Performed By: #### L 500.2500, L501.2300, L100.0600 ####[facility] [address] [place], [address] CO2 [Moles/Vol] 23.4 mmol/L Normal 22.0-29.0 [facility] Comment on above: Performed By: #### L 500.2500, L501.2300, L100.0600 ####[facility] [address] [place], [address] Creatinine [Mass/Vol] 2.07 mg/dL High 0.70-1.20 [facility] Comment on above: Performed By: #### L 500.2500, L501.2300, L100.0600 ####[facility] [address] [place], [address] ECRCL 23.05 ml/min Normal [facility] Comment on above: Performed By: #### L 500.2500, L501.2300, L100.0600 ####[facility] [address] [place], [address] GFR/1.73 sq M.predicted among non-blacks MDRD (S/P/Bld) [Vol rate/Area] 24 mL/min/{1.73_m2} Low >60 [facility] Comment on above: Result Comment: mL/m in/1.73m2 CKD-EPI Creatinine Equation (2020) Performed By: #### L 500.2500, L501.2300, L100.0600 ####[facility] [address] [place], [address] Glucose [Mass/Vol] 90 mg/dL Normal 70-99 [facility] Comment on above: Performed By: #### L 500.2500, L501.2300, L100.0600 ####[facility] [address] [place], [address] Potassium [Moles/Vol] 4.5 mmol/L Normal 3.3-5.1 [facility] Comment on above: Result Comment: Hemo lysis present, Results??could be affected.?? Performed By: #### L 500.2500, L501.2300, L100.0600 ####[facility] [address] [place], [address] Sodium [Moles/Vol] 140 mmol/L Normal 133-145 [facility] Comment on above: Performed By: #### L 500.2500, L501.2300, L100.0600 ####[facility] [address] [place], [address] Urea nitrogen [Mass/Vol] 45 mg/dL High 4-19 [facility] Comment on above: Performed By: #### L 500.2500, L501.2300, L100.0600 ####[facility] [address] [place], [address] HH, Hemoglobin AND Hematocri ton 06-03-2024 Hematocrit (Bld) [Volume fraction] 27.1 % Low 37-47 [facility] Comment on above: Performed By: #### L 500.2500, L501.2300, L100.0600 ####[facility] [address] [place], [address] Hemoglobin (Bld) [Mass/Vol] 8.1 g/dL Low 12.0-15.0 [facility] Comment on above: Performed By: #### L 500.2500, L501.2300, L100.0600 ####[facility] [address] [place], [address] Phosphoruson 06-03-2024 Phosphate [Mass/Vol] 4.9 mg/dL High 2.7-4.5 [facility] Comment on above: Performed By: #### L 500.2500, L501.2300, L100.0600 ####[facility] [address] [place], [address] Estimated glomerular filtrat ion rate (GFR) AmericanOrdered By: Mari Mehta on 05-30-2024 Estimated glomerular filtration rate (GFR) 32 mL/min Low >60 [facility] HH, Hemoglobin AND Hematocri ton 05-30-2024 Hematocrit (Bld) [Volume fraction] 27.6 % Low 37-47 [facility] Comment on above: Performed By: #### L 500.3600, L100.0600 ####[facility] [address] [place], [address] Hemoglobin (Bld) [Mass/Vol] 8.3 g/dL Low 12.0-15.0 [facility] Comment on above: Performed By: #### L 500.3600, L100.0600 ####[facility] [address] [place], [address] Renal Profileon 05-30-2024 Albumin [Mass/Vol] 1.9 g/dL Low 3.2-5.0 [facility] Comment on above: Performed By: #### L 500.3600, L100.0600 ####[facility] [address] [place], [address] BUN/CRE 22.1 RATIO High 10-20 [facility] Comment on above: Performed By: #### L 500.3600, L100.0600 ####[facility] [address] [place], [address] CA,Total 8.4 mg/dL Low 8.5-10.1 [facility] Comment on above: Performed By: #### L 500.3600, L100.0600 ####[facility] [address] [place], [address] Chloride [Moles/Vol] 106 mmol/L Normal 98-107 [facility] Comment on above: Performed By: #### L 500.3600, L100.0600 ####[facility] [address] [place], [address] CO2 [Moles/Vol] 27.0 mmol/L Normal 21.0-32.0 [facility] Comment on above: Performed By: #### L 500.3600, L100.0600 ####[facility] [address] [place], [address] Creatinine [Mass/Vol] 1.95 mg/dL High 0.55-1.02 [facility] Comment on above: Result Comment: The validity of the calculated GFR GFRAA in patients over70 years has not been determined. Clinical correlation isessential. Performed By: #### L 500.3600, L100.0600 ####[facility] [address] [place], [address] ECRCL 24.28 ml/min Normal [facility] Comment on above: Performed By: #### L 500.3600, L100.0600 ####[facility] [address] [place], [address] EST GFR - AA 32 mL/min Low >60 [facility] Comment on above: Result Comment: Afri can Japanese GFR Calc Performed By: #### L 500.3600, L100.0600 ####[facility] [address] [place], [address] GFR/1.73 sq M.predicted among non-blacks MDRD (S/P/Bld) [Vol rate/Area] 26 mL/min/{1.73_m2} Low >60 [facility] Comment on above: Result Comment: Non- GFR Calc Performed By: #### L 500.3600, L100.0600 ####[facility] [address] [place], [address] Glucose [Mass/Vol] 86 mg/dL Normal 74-106 [facility] Comment on above: Performed By: #### L 500.3600, L100.0600 ####[facility] [address] [place], [address] Phosphate [Mass/Vol] 3.7 mg/dL Normal 2.5-4.9 [facility] Comment on above: Performed By: #### L 500.3600, L100.0600 ####[facility] [address] [place], [address] Potassium [Moles/Vol] 4.8 mmol/L Normal 3.5-5.1 [facility] Comment on above: Performed By: #### L 500.3600, L100.0600 ####[facility] [address] [place], [address] Sodium [Moles/Vol] 140 mmol/L Normal 136-145 [facility] Comment on above: Performed By: #### L 500.3600, L100.0600 ####[facility] [address] [place], [address] Urea nitrogen [Mass/Vol] 43 mg/dL High 7-18 [facility] Comment on above: Performed By: #### L 500.3600, L100.0600 ####[facility] [address] [place], [address] Absolute lymphocyte countOrd ered By: Mari Mehta on 05-27-2024 Lymphocytes Auto (Unsp spec) [#/Vol] 1.59 10*3/uL 0.83-4.51 [facility] Absolute neutrophil countOrd ered By: Mari Mehta on 05-27-2024 Absolute neutrophil count 4.5 X10^3/uL 2.0-7.7 [facility] Albumin, Serumon 05-27-2024 Albumin [Mass/Vol] 2.2 g/dL Low 3.2-5.0 [facility] Comment on above: Performed By: #### L 501.1800, L500.2500, L100.0100 ####[facility] [address] [place], [address] Automated lymphocyte count a s percentage of total leukocytesOrdered By: Mari Mehta on 05-27-2024 Lymphocytes/100 WBC Auto (Unsp spec) 22.7 % 19-41 [facility] Basic Metabolic Profile (BMP )on 05-27-2024 BUN/CRE 21.2 RATIO High 10-20 [facility] [facility] Comment on above: Performed By: #### L 501.1800, L500.2500, L100.0100 ####[facility] [address] [place], [address] CA,Total 8.4 mg/dL Low 8.5-10.1 [facility] Comment on above: Performed By: #### L 501.1800, L500.2500, L100.0100 ####[facility] [address] [place], [address] Chloride [Moles/Vol] 106 mmol/L Normal 98-107 [facility] Comment on above: Performed By: #### L 501.1800, L500.2500, L100.0100 ####[facility] [address] [place], [address] CO2 [Moles/Vol] 24.0 mmol/L Normal 21.0-32.0 [facility] Comment on above: Performed By: #### L 501.1800, L500.2500, L100.0100 ####[facility] [address] [place], [address] Creatinine [Mass/Vol] 1.98 mg/dL High 0.55-1.02 [facility] Comment on above: Result Comment: The validity of the calculated GFR GFRAA in patients over70 years has not been determined. Clinical correlation isessential. Performed By: #### L 501.1800, L500.2500, L100.0100 ####[facility] [address] [place], [address] ECRCL 24.07 ml/min Normal [facility] Comment on above: Performed By: #### L 501.1800, L500.2500, L100.0100 ####[facility] [address] [place], [address] EST GFR - AA 31 mL/min Low >60 [facility] Comment on above: Result Comment: Afri can Japanese GFR Calc Performed By: #### L 501.1800, L500.2500, L100.0100 ####[facility] [address] [place], [address] GAP 10 Normal 5-15 [facility] Comment on above: Performed By: #### L 501.1800, L500.2500, L100.0100 ####[facility] [address] [place], [address] GFR/1.73 sq M.predicted among non-blacks MDRD (S/P/Bld) [Vol rate/Area] 26 mL/min/{1.73_m2} Low >60 [facility] Comment on above: Result Comment: Non- GFR Calc Performed By: #### L 501.1800, L500.2500, L100.0100 ####[facility] [address] [place], [address] Glucose [Mass/Vol] 85 mg/dL Normal 74-106 [facility] Comment on above: Performed By: #### L 501.1800, L500.2500, L100.0100 ####[facility] [address] [place], [address] Potassium [Moles/Vol] 4.2 mmol/L Normal 3.5-5.1 [facility] Comment on above: Performed By: #### L 501.1800, L500.2500, L100.0100 ####[facility] [address] [place], [address] Sodium [Moles/Vol] 140 mmol/L Normal 136-145 [facility] Comment on above: Performed By: #### L 501.1800, L500.2500, L100.0100 ####[facility] [address] [place], [address] Urea nitrogen [Mass/Vol] 42 mg/dL High 7-18 [facility] Comment on above: Performed By: #### L 501.1800, L500.2500, L100.0100 ####[facility] [address] [place], [address] Basophil percentageOrdered B y: Mari Mehta on 05-27-2024 Basophils/100 WBC (Bld) 1.0 % 0-1 [facility] Basophil percentage 1.0 % 0-1 [facility] CBC W/Diff, Automatedon 05-08 Absolute Lymph 1.59 X10 3/uL Normal 0.83-4.51 [facility] Comment on above: Performed By: #### L 501.1800, L500.2500, L100.0100 ####[facility] [address] [place], [address] Absolute Neut 4.5 X10 3/uL Normal 2.0-7.7 [facility] Comment on above: Performed By: #### L 501.1800, L500.2500, L100.0100 ####[facility] [address] [place], [address] Basophils/100 WBC (Bld) 1.0 % Normal 0-1 [facility] Comment on above: Performed By: #### L 501.1800, L500.2500, L100.0100 ####[facility] [address] [place], [address] Eosinophils/100 WBC (Bld) 4.3 % Normal 0-5 [facility] Comment on above: Performed By: #### L 501.1800, L500.2500, L100.0100 ####[facility] [address] [place], [address] Erythrocyte distribution width (RBC) [Ratio] 17.0 % High 11.6-14.6 [facility] Comment on above: Performed By: #### L 501.1800, L500.2500, L100.0100 ####[facility] [address] [place], [address] Hematocrit (Bld) [Volume fraction] 28.2 % Low 37-47 [facility] Comment on above: Performed By: #### L 501.1800, L500.2500, L100.0100 ####[facility] [address] [place], [address] Hemoglobin (Bld) [Mass/Vol] 8.5 g/dL Low 12.0-15.0 [facility] Comment on above: Performed By: #### L 501.1800, L500.2500, L100.0100 ####[facility] [address] [place], [address] IG% 0.700 Normal 0.0-0.9 [facility] Comment on above: Result Comment: IG% - Immature Granulocytes (promyelocytes, myelocytes andmetamyelocytes) > 1% indicates that a LEFT SHIFT is Present. Performed By: #### L 501.1800, L500.2500, L100.0100 ####[facility] [address] [place], [address] Lymphocytes/100 WBC (Bld) 22.7 % Normal 19-41 [facility] Comment on above: Performed By: #### L 501.1800, L500.2500, L100.0100 ####[facility] [address] [place], [address] MCH (RBC) [Entitic mass] 30.1 pg Normal 27.0-32.0 [facility] Comment on above: Performed By: #### L 501.1800, L500.2500, L100.0100 ####[facility] [address] [place], [address] MCHC (RBC) [Mass/Vol] 30.1 g/dL Low 32-36 [facility] Comment on above: Performed By: #### L 501.1800, L500.2500, L100.0100 ####[facility] [address] [place], [address] MCV (RBC) [Entitic vol] 100.0 fL High 81-99 [facility] Comment on above: Performed By: #### L 501.1800, L500.2500, L100.0100 ####[facility] [address] [place], [address] Monocytes/100 WBC (Bld) 7.6 % Normal 0-10 [facility] Comment on above: Performed By: #### L 501.1800, L500.2500, L100.0100 ####[facility] [address] [place], [address] Neutrophils/100 WBC (Bld) 63.7 % Normal 47-70 [facility] Comment on above: Performed By: #### L 501.1800, L500.2500, L100.0100 ####[facility] [address] [place], [address] Nucleated RBC (Bld) [#/Vol] 0 10*3/uL Normal 0-5 [facility] Comment on above: Performed By: #### L 501.1800, L500.2500, L100.0100 ####[facility] [address] [place], [address] Platelet mean volume (Bld) [Entitic vol] 12.1 fL High 6.2-12.0 [facility] Comment on above: Performed By: #### L 501.1800, L500.2500, L100.0100 ####[facility] [address] [place], [address] Platelets (Bld) [#/Vol] 314 10*3/uL Normal 150-450 [facility] Comment on above: Performed By: #### L 501.1800, L500.2500, L100.0100 ####[facility] [address] [place], [address] RBC (Bld) [#/Vol] 2.82 10*6/uL Low 4.2-5.4 [facility] Comment on above: Performed By: #### L 501.1800, L500.2500, L100.0100 ####[facility] [address] [place], [address] RDW SD 62.2 fl High 35.1-43.9 [facility] Comment on above: Performed By: #### L 501.1800, L500.2500, L100.0100 ####[facility] [address] [place], [address] WBC (Bld) [#/Vol] 7.0 10*3/uL Normal 4.4-11.0 [facility] Comment on above: Performed By: #### L 501.1800, L500.2500, L100.0100 ####[facility] [address] [place], [address] Eosinophil percentageOrdered By: Mari Mehta on 05-27-2024 Eosinophils/100 WBC (Bld) 4.3 % 0-5 [facility] Eosinophil percentage 4.3 % 0-5 [facility] Immature granulocytes/100 WB C Auto (Bld)Ordered By: Mari Mehta on 05-27-2024 Immature granulocytes/100 WBC (Bld) 0.700 % 0.0-0.9 [facility] Automated immature granulocyte percentage 0.700 % 0.0-0.9 [facility] Lymphocytes Auto (Unsp spec) [#/Vol]Ordered By: Mari Mehta on 05-27-2024 Absolute lymphocyte count 1.59 X10^3/uL 0.83-4.51 [facility] Lymphocytes/100 WBC Auto (Un sp spec)Ordered By: Mari Mehta on 05-27-2024 Automated lymphocyte count as percentage of total leukocytes 22.7 % 19-41 [facility] Monocyte percentageOrdered B y: Mari Mehta on 05-27-2024 Monocytes/100 WBC (Bld) 7.6 % 0-10 [facility] Monocyte percentage 7.6 % 0-10 [facility] Neutrophil percentageOrdered By: Mari Mehta on 05-27-2024 Neutrophils/100 WBC (Bld) 63.7 % 47-70 [facility] Neutrophil percentage 63.7 % 47-70 [facility] Nucleated red blood cell per centageOrdered By: Mari Mehta on 05-27-2024 Nucleated red blood cell percentage 0 % 0-5 [facility] HLA B27on 05-25-2024 HLA B27 Negative Normal . [facility] Comment on above: Result Comment: HLA- B*27 SsapacwtD10 allele interpretation for all loci based on IMGT/HLAdatabase version 3.51.0This test was developed and its performance characteristicsdetermined by [employer]. It has not been cleared or approvedby the Food and Drug Administration.The FDA has determined that such clearance or approval isnot necessary.[facility] CLIA ID Number [id number] test was performed using Polymerase Chain Reaction(PCR) and Sequence Specific Oligonucleotide Probes (SSOP)technique. Sequence Based Typing (SBT) may be used as asupplemental method when necessary.If you have questions, please call [facility] customer serviceat or email at [email or web address].Performed at: [address] [place] [address] [id number] Director: Marie Nowak PhD, Phone: [phone] Performed By: #### L 3410.1400, L101.9900 ####[facility] [address] [place], [address] Basic Metabolic Profile (BMP )on 05-23-2024 BUN Normal 7-18 [facility] Comment on above: Order Comment: uto x 2 phleb nurse adela was notified. Result Comment: OM C ANCEL REQUEST Performed By: #### L 500.2500 ####[facility] [address] [place], [address] BUN/CRE Normal 10-20 [facility] Comment on above: Order Comment: uto x 2 phleb nurse adela was notified. Result Comment: OM C ANCEL REQUEST Performed By: #### L 500.2500 ####[facility] [address] [place], [address] CA,Total Normal 8.5-10.1 [facility] Comment on above: Order Comment: uto x 2 phleb nurse adela was notified. Result Comment: OM C ANCEL REQUEST Performed By: #### L 500.2500 ####[facility] [address] [place], [address] CL Normal 98-107 [facility] Comment on above: Order Comment: uto x 2 phleb nurse adela was notified. Result Comment: OM C ANCEL REQUEST Performed By: #### L 500.2500 ####[facility] [address] [place], [address] CO2 Normal 21.0-32.0 [facility] Comment on above: Order Comment: uto x 2 phleb nurse adela was notified. Result Comment: OM C ANCEL REQUEST Performed By: #### L 500.2500 ####[facility] [address] [place], [address] CREAT,SERUM Normal 0.55-1.02 [facility] Comment on above: Order Comment: uto x 2 phleb nurse adela was notified. Result Comment: OM C ANCEL REQUEST Performed By: #### L 500.2500 ####[facility] [address] [place], [address] EST GFR Normal >60 [facility] Comment on above: Order Comment: uto x 2 phleb nurse adela was notified. Result Comment: OM C ANCEL REQUEST Performed By: #### L 500.2500 ####[facility] [address] [place], [address] EST GFR - AA Normal >60 [facility] Comment on above: Order Comment: uto x 2 phleb nurse adela was notified. Result Comment: OM C ANCEL REQUEST Performed By: #### L 500.2500 ####[facility] [address] [place], [address] GAP Normal 5-15 [facility] Comment on above: Order Comment: uto x 2 phleb nurse adela was notified. Result Comment: OM C ANCEL REQUEST Performed By: #### L 500.2500 ####[facility] [address] [place], [address] GLU Normal 74-106 [facility] Comment on above: Order Comment: uto x 2 phleb nurse adela was notified. Result Comment: OM C ANCEL REQUEST Performed By: #### L 500.2500 ####[facility] [address] [place], [address] Potassium Normal 3.5-5.1 [facility] Comment on above: Order Comment: uto x 2 phleb nurse adela was notified. Result Comment: OM C ANCEL REQUEST Performed By: #### L 500.2500 ####[facility] [address] [place], [address] Basic Metabolic Profile (BMP) Normal 136-145 [facility] Comment on above: Order Comment: uto x 2 phleb nurse adela was notified. Result Comment: OM C ANCEL REQUEST Performed By: #### L 500.2500 ####[facility] [address] [place], [address] Modified Barium Swallow Stud yon 05-23-2024 Modified Barium Swallow Study Normal [facility] Basic Metabolic Profile (BMP )on 05-22-2024 BUN/CRE 22.8 RATIO High 10-20 [facility] Comment on above: Performed By: #### L 500.2500, L100.0500 ####[facility] [address] [place], [address] CA,Total 8.2 mg/dL Low 8.5-10.1 [facility] Comment on above: Performed By: #### L 500.2500, L100.0500 ####[facility] [address] [place], [address] Chloride [Moles/Vol] 111 mmol/L High 98-107 [facility] Comment on above: Performed By: #### L 500.2500, L100.0500 ####[facility] [address] [place], [address] CO2 [Moles/Vol] 27.0 mmol/L Normal 21.0-32.0 [facility] Comment on above: Performed By: #### L 500.2500, L100.0500 ####[facility] [address] [place], [address] Creatinine [Mass/Vol] 1.84 mg/dL High 0.55-1.02 [facility] Comment on above: Result Comment: The validity of the calculated GFR GFRAA in patients over70 years has not been determined. Clinical correlation isessential. Performed By: #### L 500.2500, L100.0500 ####[facility] [address] [place], [address] ECRCL 25.90 ml/min Normal [facility] Comment on above: Performed By: #### L 500.2500, L100.0500 ####[facility] [address] [place], [address] EST GFR - AA 34 mL/min Low >60 [facility] Comment on above: Result Comment: Afri can Japanese GFR Calc Performed By: #### L 500.2500, L100.0500 ####[facility] [address] [place], [address] GAP 4 Low 5-15 [facility] Comment on above: Performed By: #### L 500.2500, L100.0500 ####[facility] [address] [place], [address] GFR/1.73 sq M.predicted among non-blacks MDRD (S/P/Bld) [Vol rate/Area] 28 mL/min/{1.73_m2} Low >60 [facility] Comment on above: Result Comment: Non- GFR Calc Performed By: #### L 500.2500, L100.0500 ####[facility] [address] [place], [address] Glucose [Mass/Vol] 87 mg/dL Normal 74-106 [facility] Comment on above: Performed By: #### L 500.2500, L100.0500 ####[facility] [address] [place], [address] Potassium [Moles/Vol] 4.2 mmol/L Normal 3.5-5.1 [facility] Comment on above: Performed By: #### L 500.2500, L100.0500 ####[facility] [address] [place], [address] Sodium [Moles/Vol] 142 mmol/L Normal 136-145 [facility] Comment on above: Performed By: #### L 500.2500, L100.0500 ####[facility] [address] [place], [address] Urea nitrogen [Mass/Vol] 42 mg/dL High 7-18 [facility] Comment on above: Performed By: #### L 500.2500, L100.0500 ####[facility] [address] [place], [address] CBC-Complete Blood Cnt No Di ffon 05-22-2024 Erythrocyte distribution width (RBC) [Ratio] 17.3 % High 11.6-14.6 [facility] Comment on above: Performed By: #### L 500.2500, L100.0500 ####[facility] [address] [place], [address] Hematocrit (Bld) [Volume fraction] 27.1 % Low 37-47 [facility] Comment on above: Performed By: #### L 500.2500, L100.0500 ####[facility] [address] [place], [address] Hemoglobin (Bld) [Mass/Vol] 8.1 g/dL Low 12.0-15.0 [facility] Comment on above: Performed By: #### L 500.2500, L100.0500 ####[facility] [address] [place], [address] MCH (RBC) [Entitic mass] 30.6 pg Normal 27.0-32.0 [facility] Comment on above: Performed By: #### L 500.2500, L100.0500 ####[facility] [address] [place], [address] MCHC (RBC) [Mass/Vol] 29.9 g/dL Low 32-36 [facility] Comment on above: Performed By: #### L 500.2500, L100.0500 ####[facility] [address] [place], [address] MCV (RBC) [Entitic vol] 102.3 fL High 81-99 [facility] Comment on above: Performed By: #### L 500.2500, L100.0500 ####[facility] [address] [place], [address] Platelet mean volume (Bld) [Entitic vol] 12.2 fL High 6.2-12.0 [facility] Comment on above: Performed By: #### L 500.2500, L100.0500 ####[facility] [address] [place], [address] Platelets (Bld) [#/Vol] 392 10*3/uL Normal 150-450 [facility] Comment on above: Performed By: #### L 500.2500, L100.0500 ####[facility] [address] [place], [address] RBC (Bld) [#/Vol] 2.65 10*6/uL Low 4.2-5.4 [facility] Comment on above: Performed By: #### L 500.2500, L100.0500 ####[facility] [address] [place], [address] RDW SD 64.2 fl High 35.1-43.9 [facility] Comment on above: Performed By: #### L 500.2500, L100.0500 ####[facility] [address] [place], [address] WBC (Bld) [#/Vol] 5.7 10*3/uL Normal 4.4-11.0 [facility] Comment on above: Performed By: #### L 500.2500, L100.0500 ####[facility] [address] [place], [address] BRCon 05-20-2024 RC Normal [facility] Comment on above: Result Comment: [id number] ABN RC TRANSFUSED 05/20/24 [id number] ABN RC NOT AVAILABLE Performed By: #### B TS, BRC, L100.0600 ####[facility] [address] [place], [address] Basic Metabolic Profile (BMP )on 05-20-2024 BUN/CRE 25.4 RATIO High 10-20 [facility] Comment on above: Performed By: #### L 500.2500 ####[facility] [address] [place], [address] CA,Total 8.5 mg/dL Normal 8.5-10.1 [facility] Comment on above: Performed By: #### L 500.2500 ####[facility] [address] [place], [address] Chloride [Moles/Vol] 111 mmol/L High 98-107 [facility] Comment on above: Performed By: #### L 500.2500 ####[facility] [address] [place], [address] CO2 [Moles/Vol] 29.0 mmol/L Normal 21.0-32.0 [facility] Comment on above: Performed By: #### L 500.2500 ####[facility] [address] [place], [address] Creatinine [Mass/Vol] 1.89 mg/dL High 0.55-1.02 [facility] Comment on above: Result Comment: The validity of the calculated GFR GFRAA in patients over70 years has not been determined. Clinical correlation isessential. Performed By: #### L 500.2500 ####[facility] [address] [place], [address] ECRCL 25.21 ml/min Normal [facility] Comment on above: Performed By: #### L 500.2500 ####[facility] [address] [place], [address] EST GFR - AA 33 mL/min Low >60 [facility] Comment on above: Result Comment: Afri can Japanese GFR Calc Performed By: #### L 500.2500 ####[facility] [address] [place], [address] GAP 4 Low 5-15 [facility] Comment on above: Performed By: #### L 500.2500 ####[facility] [address] [place], [address] GFR/1.73 sq M.predicted among non-blacks MDRD (S/P/Bld) [Vol rate/Area] 27 mL/min/{1.73_m2} Low >60 [facility] Comment on above: Result Comment: Non- GFR Calc Performed By: #### L 500.2500 ####[facility] [address] [place], [address] Glucose [Mass/Vol] 95 mg/dL Normal 74-106 [facility] Comment on above: Performed By: #### L 500.2500 ####[facility] [address] [place], [address] Potassium [Moles/Vol] 4.6 mmol/L Normal 3.5-5.1 [facility] Comment on above: Performed By: #### L 500.2500 ####[facility] [address] [place], [address] Sodium [Moles/Vol] 144 mmol/L Normal 136-145 [facility] Comment on above: Performed By: #### L 500.2500 ####[facility] [address] [place], [address] Urea nitrogen [Mass/Vol] 48 mg/dL High 7-18 [facility] Comment on above: Performed By: #### L 500.2500 ####[facility] [address] [place], [address] HH, Hemoglobin AND Hematocri ton 05-20-2024 Hematocrit (Bld) [Volume fraction] 25.0 % Low 37-47 [facility] Comment on above: Performed By: #### B GIN, BR, L100.0600 ####[facility] [address] [place], [address] Hemoglobin (Bld) [Mass/Vol] 7.4 g/dL Low 12.0-15.0 [facility] Comment on above: Performed By: #### B GIN, BR, L100.0600 ####[facility] [address] [place], [address] Stool Occult Blood iFOBon STOB Normal [facility] Comment on above: Performed By: #### M 100.7900 ####[facility] [address] [place], [address] Type AND Screenon 05-20-2024 ABO and Rh group Nom (Bld) Blood group AB Rh(D) positive Normal [facility] Comment on above: Order Comment: CMV N EG? NNumber of units to transfuse: 1Is there an orthostatic change in pt's BP(SBP drop>10mmHg)? YIs pt's HR > 100 bpm? NReason for Ordering Blood: AcuteAre the blood/blood products to be transfused? YIs the patient having/had surgery? Hanna Rodriges Performed By: #### B IGN, [facility], L100.0600 ####[facility] [address] [place], [address] Ab SCREEN GEL Negative Normal [facility] Comment on above: Order Comment: CMV N EG? NNumber of units to transfuse: 1Is there an orthostatic change in pt's BP(SBP drop>10mmHg)? YIs pt's HR > 100 bpm? NReason for Ordering Blood: AcuteAre the blood/blood products to be transfused? YIs the patient having/had surgery? Hanna Rodriges Performed By: #### B GIN, BRC, L100.0600 ####[facility] [address] [place], [address] ALP [Catalytic activity/Vol] Ordered By: Mari Landeroskunal on 05-19-2024 Serum or plasma alkaline phosphatase measurement 78 U/L 45-117 [facility] ALT [Catalytic activity/Vol] Ordered By: Mari Landeroskunal on 05-19-2024 Serum or plasma alanine aminotransferase (ALT) measurement 24 U/L 13-56 [facility] Basic Metabolic Profile (BMP )on 05-19-2024 BUN/CRE 32.5 RATIO High 10-20 [facility] Comment on above: Performed By: #### L 500.2500, L501.5200, L100.0500 ####[facility] [address] [place], [address] CA,Total 7.9 mg/dL Low 8.5-10.1 [facility] Comment on above: Performed By: #### L 500.2500, L501.5200, L100.0500 ####[facility] [address] [place], [address] Chloride [Moles/Vol] 112 mmol/L High 98-107 [facility] Comment on above: Performed By: #### L 500.2500, L501.5200, L100.0500 ####[facility] [address] [place], [address] CO2 [Moles/Vol] 27.0 mmol/L Normal 21.0-32.0 [facility] Comment on above: Performed By: #### L 500.2500, L501.5200, L100.0500 ####[facility] [address] [place], [address] Creatinine [Mass/Vol] 1.69 mg/dL High 0.55-1.02 [facility] Comment on above: Result Comment: The validity of the calculated GFR GFRAA in patients over70 years has not been determined. Clinical correlation isessential. Performed By: #### L 500.2500, L501.5200, L100.0500 ####[facility] [address] [place], [address] ECRCL 28.20 ml/min Normal [facility] Comment on above: Performed By: #### L 500.2500, L501.5200, L100.0500 ####[facility] [address] [place], [address] EST GFR - AA 37 mL/min Low >60 [facility] Comment on above: Result Comment: Afri can Japanese GFR Calc Performed By: #### L 500.2500, L501.5200, L100.0500 ####[facility] [address] [place], [address] GAP 6 Normal 5-15 [facility] Comment on above: Performed By: #### L 500.2500, L501.5200, L100.0500 ####[facility] [address] [place], [address] GFR/1.73 sq M.predicted among non-blacks MDRD (S/P/Bld) [Vol rate/Area] 31 mL/min/{1.73_m2} Low >60 [facility] Comment on above: Result Comment: Non- GFR Calc Performed By: #### L 500.2500, L501.5200, L100.0500 ####[facility] [address] [place], [address] Glucose [Mass/Vol] 89 mg/dL Normal 74-106 [facility] Comment on above: Performed By: #### L 500.2500, L501.5200, L100.0500 ####[facility] [address] [place], [address] Potassium [Moles/Vol] 4.2 mmol/L Normal 3.5-5.1 [facility] Comment on above: Performed By: #### L 500.2500, L501.5200, L100.0500 ####[facility] [address] [place], [address] Sodium [Moles/Vol] 145 mmol/L Normal 136-145 [facility] Comment on above: Performed By: #### L 500.2500, L501.5200, L100.0500 ####[facility] [address] [place], [address] Urea nitrogen [Mass/Vol] 55 mg/dL High 7-18 [facility] Comment on above: Performed By: #### L 500.2500, L501.5200, L100.0500 ####[facility] [address] [place], [address] Bilirubin directOrdered By: Mari Mehta on 05-19-2024 Bilirubin.direct [Mass/Vol] 0.16 mg/dL 0.00-0.30 [facility] Bilirubin, totalOrdered By: Mari Mehta on 05-19-2024 Bilirubin [Mass/Vol] 0.40 mg/dL 0.20-1.00 [facility] Bilirubin, total 0.40 mg/dL 0.20-1.00 [facility] Bilirubin.direct [Mass/Vol]O rdered By: Mari Mehta on 05-19-2024 Bilirubin direct 0.16 mg/dL 0.00-0.30 [facility] C-reactive protein measureme nt by high sensitivity methodOrdered By: Mair Mehta on 05-19-2024 C-reactive protein measurement by high sensitivity method 80.50 mg/L High 0.0-3.0 [facility] C-reactive protein measurement by high sensitivity method 80.50 mg/L High 0.0-3.0 [facility] CBC-Complete Blood Cnt No Di ffon 05-19-2024 Erythrocyte distribution width (RBC) [Ratio] 17.2 % High 11.6-14.6 [facility] Comment on above: Performed By: #### L 500.2500, L501.5200, L100.0500 ####[facility] [address] [place], [address] Hematocrit (Bld) [Volume fraction] 23.4 % Low 37-47 [facility] Comment on above: Performed By: #### L 500.2500, L501.5200, L100.0500 ####[facility] [address] [place], [address] Hemoglobin (Bld) [Mass/Vol] 7.0 g/dL Low 12.0-15.0 [facility] Comment on above: Performed By: #### L 500.2500, L501.5200, L100.0500 ####[facility] [address] [place], [address] MCH (RBC) [Entitic mass] 30.7 pg Normal 27.0-32.0 [facility] Comment on above: Performed By: #### L 500.2500, L501.5200, L100.0500 ####[facility] [address] [place], [address] MCHC (RBC) [Mass/Vol] 29.9 g/dL Low 32-36 [facility] Comment on above: Performed By: #### L 500.2500, L501.5200, L100.0500 ####[facility] [address] [place], [address] MCV (RBC) [Entitic vol] 102.6 fL High 81-99 [facility] Comment on above: Performed By: #### L 500.2500, L501.5200, L100.0500 ####[facility] [address] [place], [address] Platelet mean volume (Bld) [Entitic vol] 12.6 fL High 6.2-12.0 [facility] Comment on above: Performed By: #### L 500.2500, L501.5200, L100.0500 ####[facility] [address] [place], [address] Platelets (Bld) [#/Vol] 441 10*3/uL Normal 150-450 [facility] Comment on above: Performed By: #### L 500.2500, L501.5200, L100.0500 ####[facility] [address] [place], [address] RBC (Bld) [#/Vol] 2.28 10*6/uL Low 4.2-5.4 [facility] Comment on above: Performed By: #### L 500.2500, L501.5200, L100.0500 ####[facility] [address] [place], [address] RDW SD 64.2 fl High 35.1-43.9 [facility] Comment on above: Performed By: #### L 500.2500, L501.5200, L100.0500 ####[facility] [address] [place], [address] WBC (Bld) [#/Vol] 6.3 10*3/uL Normal 4.4-11.0 [facility] Comment on above: Performed By: #### L 500.2500, L501.5200, L100.0500 ####[facility] [address] [place], [address] CRPon 05-19-2024 C-REACTIVE PROT 80.50 mg/L High 0.0-3.0 [facility] Comment on above: Result Comment: C-Re active Protein (CRP) provides useful information for thediagnosis, therapy and monitoring of inflammatory processesand associated diseases. For the evaluation of Relative Riskfor Cardiovascular Disease, a High Sensitivity CRP (HSCRP)should be ordered. Performed By: #### L 503.6030, L501.5200, L501.6710, L501.2300, L500.3400 ####[facility] [address] [place], [address] ESR (Bld) [Velocity]Ordered By: Mari Mehta on 05-19-2024 Erythrocyte sedimentation rate 32 mm/hr High 0-30 [facility] Erythrocyte Sed Rateon 05-19 SED RATE 32 mm/hr High 0-30 [facility] Comment on above: Performed By: #### L 3410.1400, L101.9900 ####[facility] [address] [place], [address] Erythrocyte sedimentation ra teOrdered By: Mari Landeroskunal on 05-19-2024 ESR (Bld) [Velocity] 32 mm/h High 0-30 [facility] Human leukocyte antigen (HLA ) B27 typingOrdered By: Mari Janine on 05-19-2024 Human leukocyte antigen (HLA) B27 typing Negative . [facility] Iron (Unsp spec) [Mass/Mass] Ordered By: Mari Janine on 05-19-2024 Iron measurement (mass/mass) 47 ug/dL Low 50-170 [facility] Iron measurement (mass/mass) Ordered By: Mari Janine on 05-19-2024 Iron (Unsp spec) [Mass/Mass] 47 ug/dL Low 50-170 [facility] Iron saturation [Mass fracti on]Ordered By: Mari Mehta on 05-19-2024 Serum or plasma iron saturation measurement (mass fraction) 19.9 % 15.0-55.0 [facility] Iron+Iron Binding Capacityon 05-19-2024 Iron [Mass/Vol] 47 ug/dL Low 50-170 [facility] Comment on above: Performed By: #### L 503.6030, L501.5200, L501.6710, L501.2300, L500.3400 ####[facility] [address] [place], [address] IRON SATURATION 19.9 Normal 15.0-55.0 [facility] Comment on above: Performed By: #### L 503.6030, L501.5200, L501.6710, L501.2300, L500.3400 ####[facility] [address] [place], [address] TIBC 236 ug/dL Low 250-450 [facility] Comment on above: Performed By: #### L 503.6030, L501.5200, L501.6710, L501.2300, L500.3400 ####[facility] [address] [place], [address] Liver Profileon 05-19-2024 Albumin [Mass/Vol] 2.2 g/dL Low 3.2-5.0 [facility] Comment on above: Performed By: #### L 503.6030, L501.5200, L501.6710, L501.2300, L500.3400 ####[facility] [address] [place], [address] ALK P 78 U/L Normal 45-117 [facility] Comment on above: Performed By: #### L 503.6030, L501.5200, L501.6710, L501.2300, L500.3400 ####[facility] [address] [place], [address] ALT [Catalytic activity/Vol] 24 U/L Normal 13-56 [facility] Comment on above: Performed By: #### L 503.6030, L501.5200, L501.6710, L501.2300, L500.3400 ####[facility] [address] [place], [address] AST [Catalytic activity/Vol] 19 U/L Normal 15-37 [facility] Comment on above: Performed By: #### L 503.6030, L501.5200, L501.6710, L501.2300, L500.3400 ####[facility] [address] [place], [address] Bilirubin [Mass/Vol] 0.40 mg/dL Normal 0.20-1.00 [facility] Comment on above: Result Comment: For patients on eltrombopag therapy, use of Dimension [place] TBIL is not recommended. Performed By: #### L 503.6030, L501.5200, L501.6710, L501.2300, L500.3400 ####[facility] [address] [place], [address] Bilirubin.direct [Mass/Vol] 0.16 mg/dL Normal 0.00-0.30 [facility] Comment on above: Performed By: #### L 503.6030, L501.5200, L501.6710, L501.2300, L500.3400 ####[facility] [address] [place], [address] Globulin (S) [Mass/Vol] 3.7 g/dL Normal 2.2-4.2 [facility] Comment on above: Performed By: #### L 503.6030, L501.5200, L501.6710, L501.2300, L500.3400 ####[facility] [address] [place], [address] T PROT 5.9 g/dL Low 6.4-8.2 [facility] Comment on above: Performed By: #### L 503.6030, L501.5200, L501.6710, L501.2300, L500.3400 ####[facility] [address] [place], [address] Lower GI hemoglobin IA Ql (S tl)Ordered By: Mari Mehta on 05-19-2024 Stool gastrointestinal hemoglobin detection by immunologic method Positive Abnormal [facility] Magnesiumon 05-19-2024 Magnesium [Mass/Vol] 2.2 mg/dL Normal 1.6-2.6 [facility] Comment on above: Performed By: #### L 503.6030, L501.5200, L501.6710, L501.2300, L500.3400 ####[facility] [address] [place], [address] Magnesium [Mass/Vol] 2.1 mg/dL Normal 1.6-2.6 [facility] Comment on above: Performed By: #### L 500.2500, L501.5200, L100.0500 ####[facility] [address] [place], [address] Magnesium measurementOrdered By: Mari Janine on 05-19-2024 Magnesium [Mass/Vol] 2.2 mg/dL 1.6-2.6 [facility] Magnesium measurement 2.2 mg/dL 1.6-2.6 [facility] No Panel InformationOrdered By: Mari Mehta on 05-19-2024 19 U/L 15-37 [facility] Phosphoruson 05-19-2024 Phosphate [Mass/Vol] 3.6 mg/dL Normal 2.5-4.9 [facility] Comment on above: Performed By: #### L 503.6030, L501.5200, L501.6710, L501.2300, L500.3400 ####[facility] [address] [place], [address] Phosphate [Mass/Vol] 3.9 mg/dL Normal 2.5-4.9 [facility] Comment on above: Performed By: #### L 501.2300 ####[facility] [address] [place], [address] Serum globulin measurementOr dered By: Mari Mehta on 05-19-2024 Globulin (S) [Mass/Vol] 3.7 g/dL 2.2-4.2 [facility] Serum globulin measurement 3.7 g/dL 2.2-4.2 [facility] Serum or plasma alanine huertas otransferase (ALT) measurementOrdered By: Mari Mehta on 05-19-2024 ALT [Catalytic activity/Vol] 24 U/L 13-56 [facility] Serum or plasma alkaline mariya sphatase measurementOrdered By: Mari Mehta on 05-19-2024 ALP [Catalytic activity/Vol] 78 U/L 45-117 [facility] Serum or plasma iron saturat ion measurement (mass fraction)Ordered By: Mari Mehta on 05-19-2024 Iron saturation [Mass fraction] 19.9 % 15.0-55.0 [facility] Stool gastrointestinal hemog lobin detection by immunologic methodOrdered By: Mari Landeroskunal on 05-19-2024 Lower GI hemoglobin IA Ql (Stl) Positive Abnormal [facility] TIBCOrdered By: Mari Mehta on 05-19-2024 TIBC 236 ug/dL Low 250-450 [facility] Thoracic Spine 3 Viewson Thoracic Spine 3 Views Normal [facility] Total proteinOrdered By: Shirley Mehta on 05-19-2024 Protein [Mass/Vol] 5.9 g/dL Low 6.4-8.2 [facility] Total protein 5.9 g/dL Low 6.4-8.2 [facility] GLUCOSE POCon 05-18-2024 Glucose [Mass/Vol] 94 mg/dL 70 - 99 mg/dL [facility] Glucose [Mass/Vol] 93 mg/dL 70 - 99 mg/dL [facility] Glucose [Mass/Vol] 91 mg/dL 70 - 99 mg/dL [facility] POC Sample Type [facility] MAGNESIUMon 05-18-2024 Magnesium [Mass/Vol] 1.9 mg/dL 1.6 - 2 .6 mg/dL [facility] Magnesium [Mass/Vol] 1.9 mg/dL Normal 1.6-2.6 [facility] Comment on above: Performed By: #### M GO, CHM7, IPB, CKB, TRIG, LDO #### [facility] (DEFAULT) [address] [place] [address] No Panel Informationon 05-18 Interpretation and review of laboratory results Normal [facility] PHOSPHATE, INORGANICon 05-18 Phosphate [Mass/Vol] 4.1 mg/dL 2.2 - 4 .6 mg/dL [facility] Phosphorous 4.1 mg/dL Normal 2.2-4.6 [facility] Comment on above: Performed By: #### M ROXY TELLO, IPB, CKB, TRIG, LDO #### [facility] (DEFAULT) [address] [place] [address] CBC,PLATELETSon 05-17-2024 Erythrocyte distribution width (RBC) [Ratio] 17.2 % High 10.8 - 14.9 % [facility] Hematocrit (Bld) [Volume fraction] 25 % Low 34.9 - 44.3 % [facility] Hemoglobin (Bld) [Mass/Vol] 7.4 g/dL Low 11.4 - 15.2 g/dL [facility] Interpretation and review of laboratory results Abnormal [facility] MCH (RBC) [Entitic mass] 30.3 pg 25.9 - 33.9 pg [facility] MCHC (RBC) [Mass/Vol] 29.6 g/dL Low 31.4 - 35.9 g/dL [facility] MCV (RBC) [Entitic vol] 102.5 fL High 79.6 - 97.7 fL [facility] Platelet mean volume (Bld) [Entitic vol] 12 fL 8.5 - 12.2 fL [facility] Platelets (Bld) [#/Vol] 428 10*3/uL High 150 - 393 K/uL [facility] RBC (Bld) [#/Vol] 2.44 10*6/uL Low [facility] WBC (Bld) [#/Vol] 8.81 10*3/uL 3.99 - 11.19 K/uL [facility] Hematocrit (Bld) [Volume fraction] 25.0 % Low 34.9-44.3 [facility] Comment on above: Performed By: #### M CHEMO TELLO7, IPB, CKB, TRIG, LDO #### [facility] (DEFAULT) [address] [place] [address] Hemoglobin (Bld) [Mass/Vol] 7.4 g/dL Low 11.4-15.2 [facility] Comment on above: Performed By: #### M GO, CHM7, IPB, CKB, TRIG, LDO #### [facility] (DEFAULT) [address] [place] [address] MCV (RBC) [Entitic vol] 102.5 fL High 79.6-97.7 [facility] Comment on above: Performed By: #### M GO, CHM7, IPB, CKB, TRIG, LDO #### [facility] (DEFAULT) [address] [place] [address] Mean Cell Hgb 30.3 pg Normal 25.9-33.9 [facility] Comment on above: Performed By: #### M GO, CHM7, IPB, CKB, TRIG, LDO #### [facility] (DEFAULT) [address] [place] [address] Mean Cell Hgb Conc 29.6 g/dL Low 31.4-35.9 [facility] Comment on above: Performed By: #### M GO, CHM7, IPB, CKB, TRIG, LDO #### [facility] (DEFAULT) [address] [place] [address] Platelet mean volume (Bld) [Entitic vol] 12.0 fL Normal 8.5-12.2 [facility] Comment on above: Performed By: #### M GO, CHM7, IPB, CKB, TRIG, LDO #### [facility] (DEFAULT) [address] [place] [address] Platelets (Bld) [#/Vol] 428 10*3/uL High 150-393 [facility] Comment on above: Performed By: #### M GO, CHM7, IPB, CKB, TRIG, LDO #### [facility] (DEFAULT) [address] [place] [address] RBC (Bld) [#/Vol] 2.44 10*6/uL Low 3.91-5.04 [facility] Comment on above: Performed By: #### M GO, CHM7, IPB, CKB, TRIG, LDO #### [facility] (DEFAULT) [address] [place] [address] RBC Distribution 17.2 % High 10.8-14.9 [facility] Comment on above: Performed By: #### M GO, CHM7, IPB, CKB, TRIG, LDO #### [facility] (DEFAULT) [address] [place] [address] WBC (Bld) [#/Vol] 8.81 10*3/uL Normal 3.99-11.19 [facility] Comment on above: Performed By: #### M GO, CHM7, IPB, CKB, TRIG, LDO #### [facility] (DEFAULT) [address] [place] [address] CHEM 7 (LYTES,BUN,CREA,GLUC) on 05-17-2024 Anion gap [Moles/Vol] 11 mmol/L 7 - 17 mmol/L [facility] Chloride [Moles/Vol] 106 mmol/L 98 - 10 8 mmol/L [facility] CO2 [Moles/Vol] 28 mmol/L 21 - 31 mmol/L [facility] Creatinine [Mass/Vol] 1.68 mg/dL High 0.50 - 1.20 mg/dL [facility] eGFR, CKD-EPI, Female 30 Low - PINF [facility] Glucose [Mass/Vol] 107 mg/dL High 70 - 99 mg/dL [facility] Interpretation and review of laboratory results Abnormal [facility] Osmolality Calc [Osmolality] 313 High [facility] Potassium [Moles/Vol] 4.2 mmol/L 3.5 - 5.0 mmol/L [facility] Sodium [Moles/Vol] 141 mmol/L 135 - 145 mmol/L [facility] Urea nitrogen [Mass/Vol] 61 mg/dL High 7 - 25 mg/dL [facility] Urea nitrogen/Creatinine [Mass ratio] 36 mg/mg [facility] Anion gap [Moles/Vol] 11 mmol/L Normal 7-17 [facility] Comment on above: Performed By: #### M GO, CHM7, IPB, CKB, TRIG, LDO #### [facility] (DEFAULT) [address] [place] [address] Chloride [Moles/Vol] 106 mmol/L Normal 98-108 [facility] Comment on above: Performed By: #### M GO, CHM7, IPB, CKB, TRIG, LDO #### [facility] (DEFAULT) [address] [place] [address] CO2 [Moles/Vol] 28 mmol/L Normal 21-31 [facility] Comment on above: Performed By: #### M GO, CHM7, IPB, CKB, TRIG, LDO #### [facility] (DEFAULT) [address] [place] [address] Creatinine [Mass/Vol] 1.68 mg/dL High 0.50-1.20 [facility] Comment on above: Performed By: #### M GO, CHM7, IPB, CKB, TRIG, LDO #### [facility] (DEFAULT) [address] [place] [address] GFR/1.73 sq M.predicted among non-blacks MDRD (S/P/Bld) [Vol rate/Area] 30 mL/min/{1.73_m2} Low >=60 [facility] Comment on above: Result Comment: Repo rted eGFR is based on the CKD-EPI 2020 equation using creatinine, age, and sex. Performed By: #### M GO, CHM7, IPB, CKB, TRIG, LDO #### [facility] (DEFAULT) [address] [place] [address] Glucose [Mass/Vol] 107 mg/dL High 70-99 [facility] Comment on above: Performed By: #### M GO, CHM7, IPB, CKB, TRIG, LDO #### [facility] (DEFAULT) [address] [place] [address] Osmolality [Osmolality] 313 mosm/kg High 278-305 [facility] Comment on above: Performed By: #### M GO, CHM7, IPB, CKB, TRIG, LDO #### [facility] (DEFAULT) [address] [place] [address] Potassium [Moles/Vol] 4.2 mmol/L Normal 3.5-5.0 [facility] Comment on above: Performed By: #### M GO, CHM7, IPB, CKB, TRIG, LDO #### [facility] (DEFAULT) [address] [place] [address] Sodium [Moles/Vol] 141 mmol/L Normal 135-145 [facility] Comment on above: Performed By: #### M GO, CHM7, IPB, CKB, TRIG, LDO #### [facility] (DEFAULT) [address] [place] [address] Urea nitrogen [Mass/Vol] 61 mg/dL High 7-25 [facility] Comment on above: Performed By: #### M GO, CHM7, IPB, CKB, TRIG, LDO #### [facility] (DEFAULT) [address] [place] [address] 613[address] Urea nitrogen/Creatinine [Mass ratio] 36 mg/mg Normal [facility] Comment on above: Performed By: #### M GO, CHM7, IPB, CKB, TRIG, LDO #### [facility] (DEFAULT) [address] [place] [address] GLUCOSE POCon 05-17-2024 Glucose [Mass/Vol] 99 mg/dL 70 - 99 mg/dL [facility] POC Sample Type CAPBL [facility] Glucose [Mass/Vol] 106 mg/dL High 70 - 99 mg/dL [facility] Interpretation and review of laboratory results Abnormal [facility] POC Sample Type CAPBL [facility] Glucose [Mass/Vol] 103 mg/dL High 70 - 99 mg/dL [facility] Interpretation and review of laboratory results Abnormal [facility]ucose [Mass/Vol] 104 mg/dL High 70 - 99 mg/dL [facility] Interpretation and review of laboratory results Abnormal [facility] POC Sample Type CAPBL [facility] MAGNESIUMon 05-17-2024 Magnesium [Mass/Vol] 1.9 mg/dL 1.6 - 2 .6 mg/dL [facility] Magnesium [Mass/Vol] 1.9 mg/dL Normal 1.6-2.6 [facility] Comment on above: Performed By: #### M OMER, RITAM7, IPB, CKB, TRIG, LDO #### [facility] (DEFAULT) [address] [place] [address] No Panel Informationon 05-17 Interpretation and review of laboratory results Normal [facility] PHOSPHATE, INORGANICon 05-17 Phosphate [Mass/Vol] 3.6 mg/dL 2.2 - 4 .6 mg/dL [facility] Phosphorous 3.6 mg/dL Normal 2.2-4.6 [facility] Comment on above: Performed By: #### M GO, CHM7, IPB, CKB, TRIG, LDO #### [facility] (DEFAULT) [address] [place] [address] RF videography Hypopharynx a nd Esophagus Views W liquid and paste contrast PO during swallowingon 05-17-2024 RADIOLOGY RADIOLOGY [facility] Radiology Study observation (narrative) [facility] SPEECH MODIFIED BARIUM SWALL OWon 05-17-2024 [facility] XR FLUORO MODIFIED BARIUM SW ALLOW WITH [...] have reviewed and approved this report. Normal [facility] CBC,PLATELETSon 05-16-2024 Erythrocyte distribution width (RBC) [Ratio] 17.7 % High 10.8 - 14.9 % [facility] Hematocrit (Bld) [Volume fraction] 26.1 % Low 34.9 - 44.3 % [facility] Hemoglobin (Bld) [Mass/Vol] 7.8 g/dL Low 11.4 - 15.2 g/dL [facility] Interpretation and review of laboratory results Abnormal [facility] MCH (RBC) [Entitic mass] 30.4 pg 25.9 - 33.9 pg [facility] MCHC (RBC) [Mass/Vol] 29.9 g/dL Low 31.4 - 35.9 g/dL [facility] MCV (RBC) [Entitic vol] 101.6 fL High 79.6 - 97.7 fL [facility] Platelet mean volume (Bld) [Entitic vol] 11.9 fL 8.5 - 12.2 fL [facility] Platelets (Bld) [#/Vol] 444 10*3/uL High 150 - 393 K/uL [facility] RBC (Bld) [#/Vol] 2.57 10*6/uL Low [facility] WBC (Bld) [#/Vol] 9.66 10*3/uL 3.99 - 11.19 K/uL [facility] Hematocrit (Bld) [Volume fraction] 26.1 % Low 34.9-44.3 [facility] Comment on above: Performed By: #### M GO, CHM7, IPB, CKB, TRIG, LDO #### [facility] (DEFAULT) [address] [place] [address] Hemoglobin (Bld) [Mass/Vol] 7.8 g/dL Low 11.4-15.2 [facility] Comment on above: Performed By: #### M GO, CHM7, IPB, CKB, TRIG, LDO #### [facility] (DEFAULT) [address] [place] [address]58 MCV (RBC) [Entitic vol] 101.6 fL High 79.6-97.7 [facility] Comment on above: Performed By: #### M GO, CHM7, IPB, CKB, TRIG, LDO #### [facility] (DEFAULT) [address] [place] [address] 32988 Mean Cell Hgb 30.4 pg Normal 25.9-33.9 [facility] Comment on above: Performed By: #### M GO, CHM7, IPB, CKB, TRIG, LDO #### [facility] (DEFAULT) [address] [place] [address] 75004 Mean Cell Hgb Conc 29.9 g/dL Low 31.4-35.9 [facility] Comment on above: Performed By: #### M GO, CHM7, IPB, CKB, TRIG, LDO #### [facility] (DEFAULT) [address] [place] [address] Platelet mean volume (Bld) [Entitic vol] 11.9 fL Normal 8.5-12.2 [facility] Comment on above: Performed By: #### M GO, CHM7, IPB, CKB, TRIG, LDO #### [facility] (DEFAULT) [address] [place] [address] 567[address] Platelets (Bld) [#/Vol] 444 10*3/uL High 150-393 [facility] Comment on above: Performed By: #### M GO, CHM7, IPB, CKB, TRIG, LDO #### [facility] (DEFAULT) [address] [place] [address] 94399 RBC (Bld) [#/Vol] 2.57 10*6/uL Low 3.91-5.04 [facility] Comment on above: Performed By: #### M GO, CHM7, IPB, CKB, TRIG, LDO #### [facility] (DEFAULT) [address] [place] [address] 38613 RBC Distribution 17.7 % High 10.8-14.9 [facility] Comment on above: Performed By: #### M GO, CHM7, IPB, CKB, TRIG, LDO #### [facility] (DEFAULT) [address] [place] [address] 18817 WBC (Bld) [#/Vol] 9.66 10*3/uL Normal 3.99-11.19 [facility] Comment on above: Performed By: #### M GO, CHM7, IPB, CKB, TRIG, LDO #### [facility] (DEFAULT) [address] [place] [address] CHEM 7 (LYTES,BUN,CREA,GLUC) on 05-16-2024 Anion gap [Moles/Vol] 13 mmol/L 7 - 17 mmol/L [facility] Chloride [Moles/Vol] 105 mmol/L 98 - 10 8 mmol/L [facility] CO2 [Moles/Vol] 28 mmol/L 21 - 31 mmol/L [facility] Creatinine [Mass/Vol] 1.69 mg/dL High 0.50 - 1.20 mg/dL [facility] eGFR, CKD-EPI, Female 30 Low - PINF [facility] Glucose [Mass/Vol] 120 mg/dL High 70 - 99 mg/dL [facility] Interpretation and review of laboratory results Abnormal [facility] Osmolality Calc [Osmolality] 315 High [facility] Potassium [Moles/Vol] 4.3 mmol/L 3.5 - 5.0 mmol/L [facility] Sodium [Moles/Vol] 142 mmol/L 135 - 145 mmol/L [facility] Urea nitrogen [Mass/Vol] 60 mg/dL High 7 - 25 mg/dL [facility] Urea nitrogen/Creatinine [Mass ratio] 36 mg/mg [facility] Anion gap [Moles/Vol] 13 mmol/L Normal 7-17 [facility] Comment on above: Performed By: #### R ES #### [facility] (DEFAULT) [address] [place] [address] Chloride [Moles/Vol] 105 mmol/L Normal 98-108 [facility] Comment on above: Performed By: #### R ES #### [facility] (DEFAULT) [address] [place] [address] CO2 [Moles/Vol] 28 mmol/L Normal 21-31 [facility] Comment on above: Performed By: #### R ES #### [facility] (DEFAULT) [address] [address] Creatinine [Mass/Vol] 1.69 mg/dL High 0.50-1.20 [facility] Comment on above: Performed By: #### R ES #### [facility] (DEFAULT) [address] [place] [address] GFR/1.73 sq M.predicted among non-blacks MDRD (S/P/Bld) [Vol rate/Area] 30 mL/min/{1.73_m2} Low >=60 [facility] Comment on above: Result Comment: Repo rted eGFR is based on the CKD-EPI 2020 equation using creatinine, age, and sex. Performed By: #### R ES #### [facility] (DEFAULT) [address] [address] Glucose [Mass/Vol] 120 mg/dL High 70-99 [facility] Comment on above: Performed By: #### R ES #### [facility] (DEFAULT) [address] [address] Osmolality [Osmolality] 315 mosm/kg High 278-305 [facility] Comment on above: Performed By: #### R ES #### [facility] (DEFAULT) [address] [address] Potassium [Moles/Vol] 4.3 mmol/L Normal 3.5-5.0 [facility] Comment on above: Performed By: #### R ES #### [facility] (DEFAULT) [address] [address] Sodium [Moles/Vol] 142 mmol/L Normal 135-145 [facility] Comment on above: Performed By: #### R ES #### [facility] (DEFAULT) [address] [address] Urea nitrogen [Mass/Vol] 60 mg/dL High 7-25 [facility] Comment on above: Performed By: #### R ES #### [facility] (DEFAULT) [address] [place] [address] Urea nitrogen/Creatinine [Mass ratio] 36 mg/mg Normal [facility] Comment on above: Performed By: #### R ES #### [facility] (DEFAULT) [address] [place] [address] GLUCOSE POCon 05-16-2024 Glucose [Mass/Vol] 117 mg/dL High 70 - 99 mg/dL [facility] Interpretation and review of laboratory results Abnormal [facility] POC Sample Type CAPBL [facility] Glucose [Mass/Vol] 101 mg/dL High 70 - 99 mg/dL [facility] Interpretation and review of laboratory results Abnormal [facility] POC Sample Type CAPBL [facility] Glucose [Mass/Vol] 96 mg/dL 70 - 99 mg/dL [facility] POC Sample Type CAPBL [facility] Glucose [Mass/Vol] 100 mg/dL High 70 - 99 mg/dL [facility] Interpretation and review of laboratory results Abnormal [facility] POC Sample Type CAPBL [facility] MAGNESIUMon 05-16-2024 Magnesium [Mass/Vol] 1.8 mg/dL 1.6 - 2 .6 mg/dL [facility] Magnesium [Mass/Vol] 1.8 mg/dL Normal 1.6-2.6 [facility] Comment on above: Performed By: #### R ES #### [facility] (DEFAULT) [address] [place] [address] No Panel Informationon 05-16 Interpretation and review of laboratory results Normal [facility] PHOSPHATE, INORGANICon 05-16 Phosphate [Mass/Vol] 3.3 mg/dL 2.2 - 4 .6 mg/dL [facility] Phosphorous 3.3 mg/dL Normal 2.2-4.6 [facility] Comment on above: Performed By: #### R ES #### [facility] (DEFAULT) [address] [place] [address] CBC,PLATELETSon 05-15-2024 Erythrocyte distribution width (RBC) [Ratio] 17.8 % High 10.8 - 14.9 % [facility] Hematocrit (Bld) [Volume fraction] 25.7 % Low 34.9 - 44.3 % [facility] Hemoglobin (Bld) [Mass/Vol] 7.6 g/dL Low 11.4 - 15.2 g/dL [facility] Interpretation and review of laboratory results Abnormal [facility] MCH (RBC) [Entitic mass] 30.6 pg 25.9 - 33.9 pg [facility] MCHC (RBC) [Mass/Vol] 29.6 g/dL Low 31.4 - 35.9 g/dL [facility] MCV (RBC) [Entitic vol] 103.6 fL High 79.6 - 97.7 fL [facility] Platelet mean volume (Bld) [Entitic vol] 12 fL 8.5 - 12.2 fL [facility] Platelets (Bld) [#/Vol] 450 10*3/uL High 150 - 393 K/uL [facility] RBC (Bld) [#/Vol] 2.48 10*6/uL Low [facility] WBC (Bld) [#/Vol] 12.44 10*3/uL High 3.99 - 11.19 K/uL [facility] Hematocrit (Bld) [Volume fraction] 25.7 % Low 34.9-44.3 [facility] Comment on above: Performed By: #### G ASVL #### [facility] (DEFAULT) [address] [place] [address]51 Hemoglobin (Bld) [Mass/Vol] 7.6 g/dL Low 11.4-15.2 [facility] Comment on above: Performed By: #### G ASVL #### [facility] (DEFAULT) [address] [place] [address]65 MCV (RBC) [Entitic vol] 103.6 fL High 79.6-97.7 [facility] Comment on above: Performed By: #### G ASVL #### [facility] (DEFAULT) [address] [place] [address] 99958 Mean Cell Hgb 30.6 pg Normal 25.9-33.9 [facility] Comment on above: Performed By: #### G ASVL #### [facility] (DEFAULT) [address] [place] [address] 30[address] Mean Cell Hgb Conc 29.6 g/dL Low 31.4-35.9 [facility] Comment on above: Performed By: #### G ASVL #### [facility] (DEFAULT) [address] [place] [address] Platelet mean volume (Bld) [Entitic vol] 12.0 fL Normal 8.5-12.2 [facility] Comment on above: Performed By: #### G ASVL #### [facility] (DEFAULT) [address] [place] [address] Platelets (Bld) [#/Vol] 450 10*3/uL High 150-393 [facility] Comment on above: Performed By: #### G ASVL #### [facility] (DEFAULT) [address] [place] [address] 14877 RBC (Bld) [#/Vol] 2.48 10*6/uL Low 3.91-5.04 [facility] Comment on above: Performed By: #### G ASVL #### [facility] (DEFAULT) [address] [place] [address] 56516 RBC Distribution 17.8 % High 10.8-14.9 [facility] Comment on above: Performed By: #### G ASVL #### [facility] (DEFAULT) [address] [place] [address] 73396 WBC (Bld) [#/Vol] 12.44 10*3/uL High 3.99-11.19 [facility] Comment on above: Performed By: #### G ASVL #### [facility] (DEFAULT) [address] [place] [address] 268[address] CHEM 7 (LYTES,BUN,CREA,GLUC) on 05-15-2024 Anion gap [Moles/Vol] 12 mmol/L 7 - 17 mmol/L [facility] Chloride [Moles/Vol] 104 mmol/L 98 - 10 8 mmol/L [facility] CO2 [Moles/Vol] 28 mmol/L 21 - 31 mmol/L [facility] Creatinine [Mass/Vol] 1.75 mg/dL High 0.50 - 1.20 mg/dL [facility] eGFR, CKD-EPI, Female 29 Low - PINF [facility] Glucose [Mass/Vol] 108 mg/dL High 70 - 99 mg/dL [facility] Interpretation and review of laboratory results Abnormal [facility] Osmolality Calc [Osmolality] 312 High [facility] Potassium [Moles/Vol] 4.2 mmol/L 3.5 - 5.0 mmol/L [facility] Sodium [Moles/Vol] 140 mmol/L 135 - 145 mmol/L [facility] Urea nitrogen [Mass/Vol] 63 mg/dL High 7 - 25 mg/dL [facility] Urea nitrogen/Creatinine [Mass ratio] 36 mg/mg [facility] Anion gap [Moles/Vol] 12 mmol/L Normal 7-17 [facility] Comment on above: Performed By: #### M GO, CHM7, IPB, CKB, TRIG, LDO #### [facility] (DEFAULT) [address] [place] [address] Chloride [Moles/Vol] 104 mmol/L Normal 98-108 [facility] Comment on above: Performed By: #### M GO, CHM7, IPB, CKB, TRIG, LDO #### [facility] (DEFAULT) [address] [place] [address] CO2 [Moles/Vol] 28 mmol/L Normal 21-31 [facility] Comment on above: Performed By: #### M GO, CHM7, IPB, CKB, TRIG, LDO #### [facility] (DEFAULT) [address] [place] [address] Creatinine [Mass/Vol] 1.75 mg/dL High 0.50-1.20 [facility] Comment on above: Performed By: #### M GO, CHM7, IPB, CKB, TRIG, LDO #### [facility] (DEFAULT) [address] [place] [address] GFR/1.73 sq M.predicted among non-blacks MDRD (S/P/Bld) [Vol rate/Area] 29 mL/min/{1.73_m2} Low >=60 [facility] Comment on above: Result Comment: Repo rted eGFR is based on the CKD-EPI 2020 equation using creatinine, age, and sex. Performed By: #### M GO, CHM7, IPB, CKB, TRIG, LDO #### [facility] (DEFAULT) [address] [place] [address] Glucose [Mass/Vol] 108 mg/dL High 70-99 [facility] Comment on above: Performed By: #### M GO, CHM7, IPB, CKB, TRIG, LDO #### [facility] (DEFAULT) [address] [place] [address] Osmolality [Osmolality] 312 mosm/kg High 278-305 [facility] Comment on above: Performed By: #### M GO, CHM7, IPB, CKB, TRIG, LDO #### [facility] (DEFAULT) [address] [place] [address] Potassium [Moles/Vol] 4.2 mmol/L Normal 3.5-5.0 [facility] Comment on above: Performed By: #### M GO, CHM7, IPB, CKB, TRIG, LDO #### [facility] (DEFAULT) [address] [place] [address] Sodium [Moles/Vol] 140 mmol/L Normal 135-145 [facility] Comment on above: Performed By: #### M GO, CHM7, IPB, CKB, TRIG, LDO #### [facility] (DEFAULT) [address] [place] [address] Urea nitrogen [Mass/Vol] 63 mg/dL High 7-25 [facility] Comment on above: Performed By: #### M GO, CHM7, IPB, CKB, TRIG, LDO #### [facility] (DEFAULT) [address] [place] [address] Urea nitrogen/Creatinine [Mass ratio] 36 mg/mg Normal [facility] Comment on above: Performed By: #### M GO, CHM7, IPB, CKB, TRIG, LDO #### [facility] (DEFAULT) [address] [place] [address] FLUAV and FLUBV Ag IA.rapid Nom (Unsp spec)Ordered By: Kathleen Blake on 05-15-2024 FLUAV Ag IA.rapid Ql (Nph) Not detected Not Detected [facility] FLUBV Ag IA.rapid Ql (Nph) Not detected Not Detected [facility] Interpretation and review of laboratory results Normal [facility] GLUCOSE POCon 05-15-2024 Glucose [Mass/Vol] 97 mg/dL 70 - 99 mg/dL [facility] POC Sample Type CAPBL [facility] Glucose [Mass/Vol] 105 mg/dL High 70 - 99 mg/dL [facility] Interpretation and review of laboratory results Abnormal [facility] POC Sample Type CAPBL [facility] Glucose [Mass/Vol] 117 mg/dL High 70 - 99 mg/dL [facility] Interpretation and review of laboratory results Abnormal [facility] POC Sample Type CAPBL [facility] INFLUENZA A/B RAPID MOLECULA Josr 05-15-2024 Influenza A, Molecular Not detected Normal Not Detected [facility] Comment on above: Order Comment: This test utilizes isothermal nucleic amplification technology for the differential qualitative detection of influenza A and influenza B viral nucleic acids. Performed By: #### M GO, CHM7, IPB, CKB, TRIG, LDO #### [facility] (DEFAULT) [address] [place] [address] Influenza B, Molecular Not detected Normal Not Detected [facility] Comment on above: Order Comment: This test utilizes isothermal nucleic amplification technology for the differential qualitative detection of influenza A and influenza B viral nucleic acids. Performed By: #### M GO, CHM7, IPB, CKB, TRIG, LDO #### [facility] (DEFAULT) [address] [place] [address] MAGNESIUMon 05-15-2024 Magnesium [Mass/Vol] 2 mg/dL 1.6 - 2 .6 mg/dL [facility] Magnesium [Mass/Vol] 2.0 mg/dL Normal 1.6-2.6 [facility] Comment on above: Performed By: #### M GO, CHM7, IPB, CKB, TRIG, LDO #### [facility] (DEFAULT) [address] [place] [address] No Panel Informationon 05-15 Interpretation and review of laboratory results Normal [facility] PHOSPHATE, INORGANICon 05-15 Phosphate [Mass/Vol] 3.9 mg/dL 2.2 - 4 .6 mg/dL [facility] Phosphorous 3.9 mg/dL Normal 2.2-4.6 [facility] Comment on above: Performed By: #### M ROXY TELLO, IPB, CKB, TRIG, LDO #### [facility] (DEFAULT) [address] [address] SARS-COV-2 RAPIDon SARS-CoV-2 (COVID-19) RNA JEANA+probe Ql (Unsp spec) Not detected Normal NOT DETECTED, INVALID [facility] Comment on above: Order Comment: Use [...] eye protection, gown, and gloves. Result Comment: [facility] Negative results do not [...] SARS-CoV-2 nucleic acid. Performed By: #### M ROXY TELLO, MARGARETHB, CKB, TRIG, LDO #### [facility] (DEFAULT) [address] [place] [address] SARS-CoV-2 (COVID-19) RNA NA A+probe Ql (Unsp spec)on 05-15-2024 Interpretation and review of laboratory results Normal [facility] SARS-CoV-2 (COVID-19) RdRp gene JEANA+probe Ql (Resp) Not detected NOT DETECTED, INVALID [facility] Bacteria identified Cx Nom ( Bld)on 05-14-2024 Bacteria identified Cx Nom (Unsp spec) NO GROWTH DAY 5 OF 5 [facility] CBC,PLATELETSon 05-14-2024 Erythrocyte distribution width (RBC) [Ratio] 18.1 % High 10.8 - 14.9 % [facility] Hematocrit (Bld) [Volume fraction] 26.4 % Low 34.9 - 44.3 % [facility] Hemoglobin (Bld) [Mass/Vol] 7.8 g/dL Low 11.4 - 15.2 g/dL [facility] Interpretation and review of laboratory results Abnormal [facility] MCH (RBC) [Entitic mass] 30.4 pg 25.9 - 33.9 pg [facility] MCHC (RBC) [Mass/Vol] 29.5 g/dL Low 31.4 - 35.9 g/dL [facility] MCV (RBC) [Entitic vol] 102.7 fL High 79.6 - 97.7 fL [facility] Platelet mean volume (Bld) [Entitic vol] 11.9 fL 8.5 - 12.2 fL [facility] Platelets (Bld) [#/Vol] 374 10*3/uL 150 - 393 K/uL [facility] RBC (Bld) [#/Vol] 2.57 10*6/uL Low [facility] WBC (Bld) [#/Vol] 13.46 10*3/uL High 3.99 - 11.19 K/uL [facility] Hematocrit (Bld) [Volume fraction] 26.4 % Low 34.9-44.3 [facility] Comment on above: Performed By: #### G ASVL #### [facility] (DEFAULT) [address] [place] [address] Hemoglobin (Bld) [Mass/Vol] 7.8 g/dL Low 11.4-15.2 [facility] Comment on above: Performed By: #### G ASVL #### [facility] (DEFAULT) [address] [address] MCV (RBC) [Entitic vol] 102.7 fL High 79.6-97.7 [facility] Comment on above: Performed By: #### G ASVL #### [facility] (DEFAULT) [address] [address] Mean Cell Hgb 30.4 pg Normal 25.9-33.9 [facility] Comment on above: Performed By: #### G ASVL #### [facility] (DEFAULT) [address] [address] Mean Cell Hgb Conc 29.5 g/dL Low 31.4-35.9 [facility] Comment on above: Performed By: #### G ASVL #### [facility] (DEFAULT) [address] [address] Platelet mean volume (Bld) [Entitic vol] 11.9 fL Normal 8.5-12.2 [facility] Comment on above: Performed By: #### G ASVL #### [facility] (DEFAULT) [address] [address] Platelets (Bld) [#/Vol] 374 10*3/uL Normal 150-393 [facility] Comment on above: Performed By: #### G ASVL #### [facility] (DEFAULT) [address] [address] RBC (Bld) [#/Vol] 2.57 10*6/uL Low 3.91-5.04 [facility] Comment on above: Performed By: #### G ASVL #### [facility] (DEFAULT) [address] [address] RBC Distribution 18.1 % High 10.8-14.9 [facility] Comment on above: Performed By: #### G ASVL #### [facility] (DEFAULT) [address] [place] [address] WBC (Bld) [#/Vol] 13.46 10*3/uL High 3.99-11.19 [facility] Comment on above: Performed By: #### G ASVL #### [facility] (DEFAULT) [address] [place] [address] CHEM 7 (LYTES,BUN,CREA,GLUC) on 05-14-2024 Anion gap [Moles/Vol] 14 mmol/L 7 - 17 mmol/L [facility] Chloride [Moles/Vol] 103 mmol/L 98 - 10 8 mmol/L [facility] CO2 [Moles/Vol] 26 mmol/L 21 - 31 mmol/L [facility] Creatinine [Mass/Vol] 1.7 mg/dL High 0.50 - 1.20 mg/dL [facility] eGFR, CKD-EPI, Female 30 Low - PINF [facility] Glucose [Mass/Vol] 100 mg/dL High 70 - 99 mg/dL [facility] Interpretation and review of laboratory results Abnormal [facility] Osmolality Calc [Osmolality] 307 High [facility] Potassium [Moles/Vol] 4.6 mmol/L 3.5 - 5.0 mmol/L [facility] Sodium [Moles/Vol] 138 mmol/L 135 - 145 mmol/L [facility] Urea nitrogen [Mass/Vol] 60 mg/dL High 7 - 25 mg/dL [facility] Urea nitrogen/Creatinine [Mass ratio] 35 mg/mg [facility] Anion gap [Moles/Vol] 14 mmol/L Normal 7-17 [facility] Comment on above: Performed By: #### G ASVL #### [facility] (DEFAULT) [address] [place] [address] Chloride [Moles/Vol] 103 mmol/L Normal 98-108 [facility] Comment on above: Performed By: #### G ASVL #### [facility] (DEFAULT) [address] [place] [address] CO2 [Moles/Vol] 26 mmol/L Normal 21-31 [facility] Comment on above: Performed By: #### G ASVL #### [facility] (DEFAULT) [address] [place] [address] Creatinine [Mass/Vol] 1.70 mg/dL High 0.50-1.20 [facility] Comment on above: Performed By: #### G ASVL #### [facility] (DEFAULT) [address] [place] [address] GFR/1.73 sq M.predicted among non-blacks MDRD (S/P/Bld) [Vol rate/Area] 30 mL/min/{1.73_m2} Low >=60 [facility] Comment on above: Result Comment: Repo rted eGFR is based on the CKD-EPI 2020 equation using creatinine, age, and sex. Performed By: #### G ASVL #### [facility] (DEFAULT) [address] [place] [address] Glucose [Mass/Vol] 100 mg/dL High 70-99 [facility] Comment on above: Performed By: #### G ASVL #### [facility] (DEFAULT) [address] [place] [address] Osmolality [Osmolality] 307 mosm/kg High 278-305 [facility] Comment on above: Performed By: #### G ASVL #### [facility] (DEFAULT) [address] [place] [address] Potassium [Moles/Vol] 4.6 mmol/L Normal 3.5-5.0 [facility] Comment on above: Performed By: #### G ASVL #### [facility] (DEFAULT) [address] [place] [address] Sodium [Moles/Vol] 138 mmol/L Normal 135-145 [facility] Comment on above: Performed By: #### G ASVL #### [facility] (DEFAULT) [address] [place] [address] Urea nitrogen [Mass/Vol] 60 mg/dL High 7-25 [facility] Comment on above: Performed By: #### G ASVL #### [facility] (DEFAULT) [address] [place] [address] Urea nitrogen/Creatinine [Mass ratio] 35 mg/mg Normal [facility] Comment on above: Performed By: #### G ASVL #### [facility] (DEFAULT) [address] [place] [address] ECGon 05-14-2024 [facility] ECGOrdered By: Agustina bonilla on 05-14-2024 [facility] Work Phone: GLUCOSE POCon 05-14-2024 Glucose [Mass/Vol] 112 mg/dL High 70 - 99 mg/dL [facility] Interpretation and review of laboratory results Abnormal [facility] POC Sample Type CAPBL [facility] Glucose [Mass/Vol] 109 mg/dL High 70 - 99 mg/dL [facility] Interpretation and review of laboratory results Abnormal [facility] POC Sample Type CAPBL [facility] Glucose [Mass/Vol] 100 mg/dL High 70 - 99 mg/dL [facility] Interpretation and review of laboratory results Abnormal [facility] POC Sample Type CAPBL [facility] MAGNESIUMon 05-14-2024 Magnesium [Mass/Vol] 2 mg/dL 1.6 - 2 .6 mg/dL [facility] Magnesium [Mass/Vol] 2.0 mg/dL Normal 1.6-2.6 [facility] Comment on above: Performed By: #### F CRAG #### [facility] (DEFAULT) [address] [place] [address] No Panel Informationon 05-14 Interpretation and review of laboratory results Normal [facility] PHOSPHATE, INORGANICon 05-14 Phosphate [Mass/Vol] 3.8 mg/dL 2.2 - 4 .6 mg/dL [facility] Phosphorous 3.8 mg/dL Normal 2.2-4.6 [facility] Comment on above: Performed By: #### G ASVL #### [facility] (DEFAULT) [address] [place] [address] CBC,PLATELETSon 05-13-2024 Erythrocyte distribution width (RBC) [Ratio] 18.3 % High 10.8 - 14.9 % [facility] Hematocrit (Bld) [Volume fraction] 26.9 % Low 34.9 - 44.3 % [facility] Hemoglobin (Bld) [Mass/Vol] 8 g/dL Low 11.4 - 15.2 g/dL [facility] Interpretation and review of laboratory results Abnormal [facility] MCH (RBC) [Entitic mass] 30.3 pg 25.9 - 33.9 pg [facility] MCHC (RBC) [Mass/Vol] 29.7 g/dL Low 31.4 - 35.9 g/dL [facility] MCV (RBC) [Entitic vol] 101.9 fL High 79.6 - 97.7 fL [facility] Platelet mean volume (Bld) [Entitic vol] 11.9 fL 8.5 - 12.2 fL [facility] Platelets (Bld) [#/Vol] 368 10*3/uL 150 - 393 K/uL [facility] RBC (Bld) [#/Vol] 2.64 10*6/uL Low [facility] WBC (Bld) [#/Vol] 11.5 10*3/uL High 3.99 - 11.19 K/uL [facility] Hematocrit (Bld) [Volume fraction] 26.9 % Low 34.9-44.3 [facility] Comment on above: Performed By: #### G ASVL #### [facility] (DEFAULT) [address] [place] [address] Hemoglobin (Bld) [Mass/Vol] 8.0 g/dL Low 11.4-15.2 [facility] Comment on above: Performed By: #### G ASVL #### [facility] (DEFAULT) [address] [place] [address] MCV (RBC) [Entitic vol] 101.9 fL High 79.6-97.7 [facility] Comment on above: Performed By: #### G ASVL #### [facility] (DEFAULT) [address] [place] [address] Mean Cell Hgb 30.3 pg Normal 25.9-33.9 [facility] Comment on above: Performed By: #### G ASVL #### [facility] (DEFAULT) [address] [place] [address] Mean Cell Hgb Conc 29.7 g/dL Low 31.4-35.9 [facility] Comment on above: Performed By: #### G ASVL #### [facility] (DEFAULT) [address] [place] [address] Platelet mean volume (Bld) [Entitic vol] 11.9 fL Normal 8.5-12.2 [facility] Comment on above: Performed By: #### G ASVL #### [facility] (DEFAULT) [address] [place] [address] Platelets (Bld) [#/Vol] 368 10*3/uL Normal 150-393 [facility] Comment on above: Performed By: #### G ASVL #### [facility] (DEFAULT) [address] [place] [address] RBC (Bld) [#/Vol] 2.64 10*6/uL Low 3.91-5.04 [facility] Comment on above: Performed By: #### G ASVL #### [facility] (DEFAULT) [address] [place] [address] RBC Distribution 18.3 % High 10.8-14.9 [facility] Comment on above: Performed By: #### G ASVL #### [facility] (DEFAULT) [address] [place] [address] WBC (Bld) [#/Vol] 11.50 10*3/uL High 3.99-11.19 [facility] Comment on above: Performed By: #### G ASVL #### [facility] (DEFAULT) [address] [place] [address] CHEM 7 (LYTES,BUN,CREA,GLUC) on 05-13-2024 Anion gap [Moles/Vol] 12 mmol/L 7 - 17 mmol/L [facility] Chloride [Moles/Vol] 104 mmol/L 98 - 10 8 mmol/L [facility] CO2 [Moles/Vol] 31 mmol/L 21 - 31 mmol/L [facility] Creatinine [Mass/Vol] 1.89 mg/dL High 0.50 - 1.20 mg/dL [facility] eGFR, CKD-EPI, Female 26 Low - PINF [facility] Glucose [Mass/Vol] 102 mg/dL High 70 - 99 mg/dL [facility] Interpretation and review of laboratory results Abnormal [facility] Osmolality Calc [Osmolality] 317 High [facility] Potassium [Moles/Vol] 4.4 mmol/L 3.5 - 5.0 mmol/L [facility] Sodium [Moles/Vol] 143 mmol/L 135 - 145 mmol/L [facility] Urea nitrogen [Mass/Vol] 62 mg/dL High 7 - 25 mg/dL [facility] Urea nitrogen/Creatinine [Mass ratio] 33 mg/mg [facility] Anion gap [Moles/Vol] 12 mmol/L Normal 7-17 [facility] Comment on above: Performed By: #### M GO, CHM7, IPB, CKB, TRIG, LDO #### [facility] (DEFAULT) [address] [place] [address] Chloride [Moles/Vol] 104 mmol/L Normal 98-108 [facility] Comment on above: Performed By: #### M GO, CHM7, IPB, CKB, TRIG, LDO #### [facility] (DEFAULT) [address] [place] [address] CO2 [Moles/Vol] 31 mmol/L Normal 21-31 [facility] Comment on above: Performed By: #### M GO, CHM7, IPB, CKB, TRIG, LDO #### [facility] (DEFAULT) [address] [place] [address] Creatinine [Mass/Vol] 1.89 mg/dL High 0.50-1.20 [facility] Comment on above: Performed By: #### M GO, CHM7, IPB, CKB, TRIG, LDO #### [facility] (DEFAULT) [address] [place] [address] GFR/1.73 sq M.predicted among non-blacks MDRD (S/P/Bld) [Vol rate/Area] 26 mL/min/{1.73_m2} Low >=60 [facility] Comment on above: Result Comment: Repo rted eGFR is based on the CKD-EPI 2020 equation using creatinine, age, and sex. Performed By: #### M GO, CHM7, IPB, CKB, TRIG, LDO #### [facility] (DEFAULT) [address] [place] [address] Glucose [Mass/Vol] 102 mg/dL High 70-99 [facility] Comment on above: Performed By: #### M GO, CHM7, IPB, CKB, TRIG, LDO #### [facility] (DEFAULT) [address] [place] [address] Osmolality [Osmolality] 317 mosm/kg High 278-305 [facility] Comment on above: Performed By: #### M GO, CHM7, IPB, CKB, TRIG, LDO #### [facility] (DEFAULT) [address] [place] [address] Potassium [Moles/Vol] 4.4 mmol/L Normal 3.5-5.0 [facility] Comment on above: Performed By: #### M GO, CHM7, IPB, CKB, TRIG, LDO #### [facility] (DEFAULT) [address] [place] [address] Sodium [Moles/Vol] 143 mmol/L Normal 135-145 [facility] Comment on above: Performed By: #### M GO, CHM7, IPB, CKB, TRIG, LDO #### [facility] (DEFAULT) [address] [place] [address] Urea nitrogen [Mass/Vol] 62 mg/dL High 7-25 [facility] Comment on above: Performed By: #### M GO, CHM7, IPB, CKB, TRIG, LDO #### [facility] (DEFAULT) [address] [place] [address] Urea nitrogen/Creatinine [Mass ratio] 33 mg/mg Normal [facility] Comment on above: Performed By: #### M GO, CHM7, IPB, CKB, TRIG, LDO #### [facility] (DEFAULT) [address] [place] [address] ENCEPHALOPATHY, AUTOIMMUNE E VALUATION, CSFon 05-13-2024 AMPAR2 IgG Cell binding assay immunofluorescent assay Ql (CSF) Negative Negative [facility] Amphiphysin Ab IF Ql (CSF) Negative Negative [facility] Annotation comment [Interpretation] Narrative None. [facility] Contactin-associated protein 2 IgG Cell binding assay immunofluorescent assay Ql (CSF) Negative Negative [facility] CV2 Ab IF Ql (CSF) Negative Negative [facility] Dipeptidyl aminopeptidase-like protein 6 IgG Cell binding assay immunofluorescent assay Ql (CSF) Negative Negative [facility] GABABR IgG Cell binding assay immunofluorescent assay Ql (CSF) Negative Negative [facility] Glial fibrillary acidic protein alpha subunit IgG IF Ql (CSF) Negative Negative [facility] Glial nuclear type 1 Ab IF Ql (CSF) Negative Negative [facility] Glutamate decarboxylase 65 IgG+IgM IA (CSF) [Moles/Vol] 0.00 nmol/L NINF - 0.02 nmol/L [facility] [id number] CBA, CSF Negative Negative [facility] [employer]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) [Interp] SEE COMMENTS [facility] Leucine-rich glioma-inactivated protein 1 IgG Cell binding assay immunofluorescent assay Ql (CSF) Negative Negative [facility] Metabotropic glutamate receptor 1 IgG IF Ql (CSF) Negative Negative [facility] Neurochondrin IFA, CSF Negative Negative [facility] Neuronal nuclear type 1 Ab IF Ql (CSF) Negative Negative [facility] Neuronal nuclear type 2 Ab IF Ql (CSF) Negative Negative [facility] Neuronal nuclear type 3 Ab IF Ql (CSF) Negative Negative [facility] NIF IFA, CSF Negative Negative [facility] NMDAR subunit 1 IgG Cell binding assay immunofluorescent assay Ql (CSF) Negative Negative [facility] PROFESSIONAL EMPLOYER CONSULTANT-1 Ab IF Ql (CSF) Negative Negative [facility] PROFESSIONAL EMPLOYER CONSULTANT-2 Ab IF Ql (CSF) Negative Negative [facility] PROFESSIONAL EMPLOYER CONSULTANT-Tr Ab IF Ql (CSF) Negative Negative [facility] PDE10A AB IFA, CSF Negative Negative [facility] Sept[facility]-7 IFA, CSF Negative Negative [facility] [employer]if-Containing Protein 46 IgG IFA, CSF Negative Negative [facility] FLEXIBLE ENDOSCOPIC EVALUATI ON OF SWALLOWINGon 05-13-2024 RADIOLOGY [facility] GLUCOSE POCon 05-13-2024 Glucose [Mass/Vol] 118 mg/dL High 70 - 99 mg/dL [facility] Interpretation and review of laboratory results Abnormal [facility] POC Sample Type CAPBL [facility] Glucose [Mass/Vol] 121 mg/dL High 70 - 99 mg/dL [facility] Interpretation and review of laboratory results Abnormal [facility] POC Sample Type CAPBL [facility] Glucose [Mass/Vol] 107 mg/dL High 70 - 99 mg/dL [facility] Glucose [Mass/Vol] 116 mg/dL High 70 - 99 mg/dL [facility] MAGNESIUMon 05-13-2024 Magnesium [Mass/Vol] 2.2 mg/dL 1.6 - 2 .6 mg/dL [facility] Magnesium [Mass/Vol] 2.2 mg/dL Normal 1.6-2.6 [facility] Comment on above: Performed By: #### M OMER, CHEMO7, IPB, CKB, TRIG, LDO #### [facility] (DEFAULT) [address] [place], [place] [id number] No Panel Informationon 05-13 Interpretation and review of laboratory results Abnormal [facility] POC Sample Type CAPBL [facility] Interpretation and review of laboratory results Normal [facility] PHOSPHATE, INORGANICon 05-13 Phosphate [Mass/Vol] 3.4 mg/dL 2.2 - 4 .6 mg/dL [facility] Phosphorous 3.4 mg/dL Normal 2.2-4.6 [facility] Comment on above: Performed By: #### M OMER, CHM7, IPB, CKB, TRIG, LDO #### [facility] (DEFAULT) [address] [place] [address] CALCIUMon 05-12-2024 Calcium [Mass/Vol] 7.8 mg/dL Low 8.6 - 10. 5 mg/dL [facility] Interpretation and review of laboratory results Abnormal [facility] Calcium [Mass/Vol] 7.8 mg/dL Low 8.6-10.5 [facility] Comment on above: Performed By: #### M ROXY TELLO, IPB, CKB, TRIG, LDO #### [facility] (DEFAULT) [address] [place] [address] CBC,PLATELETSon 05-12-2024 Erythrocyte distribution width (RBC) [Ratio] 18.5 % High 10.8 - 14.9 % [facility] Hematocrit (Bld) [Volume fraction] 26.9 % Low 34.9 - 44.3 % [facility] Hemoglobin (Bld) [Mass/Vol] 7.9 g/dL Low 11.4 - 15.2 g/dL [facility] Interpretation and review of laboratory results Abnormal [facility] MCH (RBC) [Entitic mass] 30.2 pg 25.9 - 33.9 pg [facility] MCHC (RBC) [Mass/Vol] 29.4 g/dL Low 31.4 - 35.9 g/dL [facility] MCV (RBC) [Entitic vol] 102.7 fL High 79.6 - 97.7 fL [facility] Platelet mean volume (Bld) [Entitic vol] 12 fL 8.5 - 12.2 fL [facility] Platelets (Bld) [#/Vol] 299 10*3/uL 150 - 393 K/uL [facility] RBC (Bld) [#/Vol] 2.62 10*6/uL Low [facility] WBC (Bld) [#/Vol] 11.05 10*3/uL 3.99 - 11.19 K/uL [facility] Hematocrit (Bld) [Volume fraction] 26.9 % Low 34.9-44.3 [facility] Comment on above: Performed By: #### M OMER, CHEMO7, IPB, CKB, TRIG, LDO #### [facility] (DEFAULT) [address] [place] [address] Hemoglobin (Bld) [Mass/Vol] 7.9 g/dL Low 11.4-15.2 [facility] Comment on above: Performed By: #### M GO, CHM7, IPB, CKB, TRIG, LDO #### [facility] (DEFAULT) [address] [place] [address] MCV (RBC) [Entitic vol] 102.7 fL High 79.6-97.7 [facility] Comment on above: Performed By: #### M GO, CHM7, IPB, CKB, TRIG, LDO #### [facility] (DEFAULT) [address] [place] [address] 71240 Mean Cell Hgb 30.2 pg Normal 25.9-33.9 [facility] Comment on above: Performed By: #### M GO, CHM7, IPB, CKB, TRIG, LDO #### [facility] (DEFAULT) [address] [place] [address] 32356 Mean Cell Hgb Conc 29.4 g/dL Low 31.4-35.9 [facility] Comment on above: Performed By: #### M GO, CHM7, IPB, CKB, TRIG, LDO #### [facility] (DEFAULT) [address] [place] [address] 24350 Platelet mean volume (Bld) [Entitic vol] 12.0 fL Normal 8.5-12.2 [facility] Comment on above: Performed By: #### M GO, CHM7, IPB, CKB, TRIG, LDO #### [facility] (DEFAULT) [address] [place] [address] 37247 Platelets (Bld) [#/Vol] 299 10*3/uL Normal 150-393 [facility] Comment on above: Performed By: #### M GO, CHM7, IPB, CKB, TRIG, LDO #### [facility] (DEFAULT) [address] [place] [address]79 RBC (Bld) [#/Vol] 2.62 10*6/uL Low 3.91-5.04 [facility] Comment on above: Performed By: #### M GO, CHM7, IPB, CKB, TRIG, LDO #### [facility] (DEFAULT) [address] [place] [address] RBC Distribution 18.5 % High 10.8-14.9 [facility] Comment on above: Performed By: #### M GO, CHM7, IPB, CKB, TRIG, LDO #### [facility] (DEFAULT) [address] [place] [address]58 WBC (Bld) [#/Vol] 11.05 10*3/uL Normal 3.99-11.19 [facility] Comment on above: Performed By: #### M GO, CHM7, IPB, CKB, TRIG, LDO #### [facility] (DEFAULT) [address] [place] [address] 57310 CHEM 7 (LYTES,BUN,CREA,GLUC) Ordered By: Michael Jiménez on 05-12-2024 Anion gap [Moles/Vol] 13 mmol/L 7 - 17 mmol/L [facility] Chloride [Moles/Vol] 103 mmol/L 98 - 10 8 mmol/L [facility] CO2 [Moles/Vol] 31 mmol/L 21 - 31 mmol/L [facility] Creatinine [Mass/Vol] 2.19 mg/dL High 0.50 - 1.20 mg/dL [facility] eGFR, CKD-EPI, Female 22 Low - PINF [facility] Glucose [Mass/Vol] 96 mg/dL 70 - 99 mg/dL [facility] Interpretation and review of laboratory results Abnormal [facility] Osmolality Calc [Osmolality] 315 High [facility] Potassium [Moles/Vol] 4.6 mmol/L 3.5 - 5.0 mmol/L [facility] Sodium [Moles/Vol] 142 mmol/L 135 - 145 mmol/L [facility] Urea nitrogen [Mass/Vol] 63 mg/dL High 7 - 25 mg/dL [facility] Urea nitrogen/Creatinine [Mass ratio] 29 mg/mg [facility] CHEM 7 (LYTES,BUN,CREA,GLUC) on 05-12-2024 Anion gap [Moles/Vol] 13 mmol/L Normal 7-17 [facility] Comment on above: Performed By: #### M GO, CHM7, IPB, CKB, TRIG, LDO #### [facility] (DEFAULT) [address] [place] [address] 68406 Chloride [Moles/Vol] 103 mmol/L Normal 98-108 [facility] Comment on above: Performed By: #### M GO, CHM7, IPB, CKB, TRIG, LDO #### [facility] (DEFAULT) [address] [place] [address] 23207 CO2 [Moles/Vol] 31 mmol/L Normal 21-31 [facility] Comment on above: Performed By: #### M GO, CHM7, IPB, CKB, TRIG, LDO #### [facility] (DEFAULT) [address] [place] [address] 01489 Creatinine [Mass/Vol] 2.19 mg/dL High 0.50-1.20 [facility] Comment on above: Performed By: #### M GO, CHM7, IPB, CKB, TRIG, LDO #### [facility] (DEFAULT) [address] [place] [address] 27858 GFR/1.73 sq M.predicted among non-blacks MDRD (S/P/Bld) [Vol rate/Area] 22 mL/min/{1.73_m2} Low >=60 [facility] Comment on above: Result Comment: Repo rted eGFR is based on the CKD-EPI 2020 equation using creatinine, age, and sex. Performed By: #### M GO, CHM7, IPB, CKB, TRIG, LDO #### [facility] (DEFAULT) [address] [place] [address] 80356 Glucose [Mass/Vol] 96 mg/dL Normal 70-99 [facility] Comment on above: Performed By: #### M GO, CHM7, IPB, CKB, TRIG, LDO #### [facility] (DEFAULT) [address] [place] [address] 27811 Osmolality [Osmolality] 315 mosm/kg High 278-305 [facility] Comment on above: Performed By: #### M GO, CHM7, IPB, CKB, TRIG, LDO #### [facility] (DEFAULT) [address] [place] [address] 42162 Potassium [Moles/Vol] 4.6 mmol/L Normal 3.5-5.0 [facility] Comment on above: Performed By: #### M GO, CHM7, IPB, CKB, TRIG, LDO #### [facility] [facility] (DEFAULT) [address] [place] [address] 93103 Sodium [Moles/Vol] 142 mmol/L Normal 135-145 [facility] Comment on above: Performed By: #### M GO, CHM7, IPB, CKB, TRIG, LDO #### [facility] (DEFAULT) [address] [place] [address] 69454 Urea nitrogen [Mass/Vol] 63 mg/dL High 7-25 [facility] Comment on above: Performed By: #### M GO, CHM7, IPB, CKB, TRIG, LDO #### [facility] (DEFAULT) [address] [place] [address] 20587 Urea nitrogen/Creatinine [Mass ratio] 29 mg/mg Normal [facility] Comment on above: Performed By: #### M GO, CHM7, IPB, CKB, TRIG, LDO #### [facility] (DEFAULT) [address] [place] [address] 52540 Cardiac echo study Procedure Ordered By: Bandar Burt on 05-12-2024 Ao arch index 1.25 cm/m2 [facility] Work Phone: [phone] Ao ASC index 1.38 cm/m2 [facility] Work Phone: [phone] Ao peak radha 1.47 m/s [facility] Work Phone: [phone] Ao SOV index 1.46 cm/m2 [facility] Work Phone: [phone] Ao STJ index 1.43 cm/m2 [facility] Work Phone: [phone] Ao VTI 35.06 cm [facility] Work Phone: [phone] Aortic arch 2.68 cm [facility] Work Phone: [phone] Ascending [facility] 2.96 [facility]: [phone] AV LVOT peak gradient 3 mmHg [facility] Work Phone: [phone] AV mean gradient 5 mmHg [facility] Work Phone: [phone] AV peak gradient 9 mmHG [facility] Work Phone: [phone] AV valve area 2.28 cm2 [facility] Work Phone: [phone] AV Velocity Ratio 0.58 [facility] Work Phone: [phone] MAHESH (continuity Vmax) 2.08 cm2 [facility] Work Phone: [phone] MAHESH (continuity VTI) 2.28 cm2 [facility] Work Phone: [phone] MAHESH index (continuity Vmax) 0.97 m/s [facility] Work Phone: [phone] MAHESH index (continuity VTI) 1.07 cm2/m2 [facility] Work Phone: [phone] Avg e' pk radha 0.07 m/s [facility] Work Phone: Avg E/e' ratio 9.96 [facility] Work Phone: Body surface area Derived from formula 2.14 m2 [facility] Work Phone: BP EF 55 % [facility] Work Phone: DI (Vmax) 0.58 [facility] Work Phone: DI (VTI) 0.64 m/2 [facility] Work Phone: E wave decelartion time 212.07 msec [facility] Work Phone: e' lateral pk radha 0.0824 m/s [facility] Work Phone: e' lateral pk radha 0.08 m/s [facility] Work Phone: e' septal pk radha 0.0628 m/s [facility] Work Phone: e' septal pk radha 0.06 m/s [facility] Work Phone: E/A ratio 1.15 [facility] Work Phone: E/e' lateral ratio 8.[address] [facility] Work Phone: E/e' septal ratio 11.31 [facility] Work Phone: EF SP 2CH 60 [facility] Work Phone: EF SP 4CH 51 [facility] Work Phone: EST RAP 5 mmHg [facility] Work Phone: FS 34 % [facility] Work Phone: IVC ostium 1.87 cm [facility] Work Phone: IVS 0.91 cm [facility] Work Phone: LA area 4CH 28.64 cm2 [facility] Work Phone: LA ESV BP (MOD) 91 mL [facility] Work Phone: LA ESV BP (MOD) index 43 mL/m2 [facility] Work Phone: LA ESV SP 2CH (MOD) [address] [facility] Work Phone: [phone] LA ESV SP 4CH (MOD) [address] [facility] Work Phone: [phone] LV EDV BP 125 mL [facility] Work Phone: [phone] LV EDV SP 2CH 112 mL [facility] Work Phone: [phone] LV EDV SP 4CH 137 mL [facility] Work Phone: LV ESV BP 56 mL [facility] Work Phone: [phone] LV ESV SP 2CH 45 mL [facility] Work Phone: LV ESV SP 4CH 67 mL [facility] Work Phone: LV mass 144.92 g [facility] Work Phone: LV Mass Index 67.7 g/m2 [facility] Work Phone: LV RWT 0.41 [facility] Work Phone: LV stroke volume BP (ml) 69 mL [facility] Work Phone: LV stroke volume index BP 32.24 mL/m2 [facility] Work Phone: LVIDD 4.64 cm [facility] Work Phone: LVIDS 3.05 cm [facility] Work Phone: LVOT area 3.59 cm2 [facility] Work Phone: LVOT diameter 2.14 cm [facility] Work Phone: LVOT peak radha 0.85 m/s [facility] Work Phone: LVOT peak VTI 22.27 cm [facility] Work Phone: LVOT stroke volume 80 cm3 [facility] Work Phone: LVOT stroke volume index 37.41 ml/m2 [facility] Work Phone: MV pk A radha 0.62 m/s [facility] Work Phone: MV pk E radha 0.71 m/s [facility] Work Phone: [facility] AV VTI RATIO PRE STRESS 0.64 [facility] Work Phone: [facility] ECHO LV BIPLANE SYSTOLIC VOLUME INDEX 26.17 mL/m2 [facility] Work Phone: [facility] ECHO LV BP DIASTOLIC VOLUME INDEX 58.41 mL/m2 [facility] Work Phone: PV mean gradient 3 mmHg [facility] Work Phone: PV peak gradient 5 mmHg [facility] Work Phone: PV PK RADHA 1.17 m/s [facility] Work Phone: PW 0.94 cm [facility] Work Phone: RA area 4CH (MOD) 16.49 cm2 [facility] Work Phone: RA vol index 4CH (MOD) 18.69 mL/m2 [facility] Work Phone: Right atrium volume 4 chamber method of disks 40 mL [facility] Work Phone: RV Area diastolic 24.16 cm2 [facility] Work Phone: RV Area systolic 12.8 cm2 [facility] Work Phone: RV Fractional area change 47 % [facility] Work Phone: RV S' 20.24 cm/s [facility] Work Phone: RVOT peak gradient [address] [facility] Work Phone: RVOT peak radha 0.75 m/s [facility] Work Phone: RVOT peak VTI 15.5 cm [facility] Work Phone: Sinus 3.13 cm [facility] Work Phone: STJ 3.05 cm [facility] Work Phone: Stroke Volume 80 cm/mL [facility] Work Phone: Stroke volume index [facility] Work [facility]: TAPSE 3.12 cm [facility] Work Phone: [facility] Work Phone: Cardiac echo study Procedure on 05-12-2024 [facility] ECHOCARDIOGRAMon 05-12-2024 Echocardiography Left ventricular siz e [...] the original result were not included. Facility [facility] Patient Information Patient Name Mari Lopez Legal [...] Role Read Date Bandar Burt DO Echo Mosca 05/12/2024 Wall Scoring Score Index: 1.24 The [...] Valve Steno (more content not included)... Normal [facility] GLUCOSE POCon 05-12-2024 Glucose [Mass/Vol] 101 mg/dL High 70 - 99 mg/dL [facility] Interpretation and review of laboratory results Abnormal [facility] POC Sample Type [facility] Glucose [Mass/Vol] 90 mg/dL 70 - 99 mg/dL [facility] POC Sample [facility] Glucose [Mass/Vol] 97 mg/dL 70 - 99 mg/dL [facility] POC Sample Type [facility] Glucose [Mass/Vol] 96 mg/dL 70 - 99 mg/dL [facility] CALCULATED LDL on 05-12-2024 Cholesterol [Mass/Vol] 121 mg/dL NINF - 200 mg/dL [facility] Cholesterol in HDL [Mass/Vol] 36 mg/dL Low 40 - PINF mg/dL [facility] Cholesterol in LDL [Mass/Vol] 64 mg/dL 0 - 99 mg/dL [facility] Cholesterol non HDL [Mass/Vol] 85 mg/dL NINF - 130 mg/dL [facility] Cholesterol.total/Chol esterol in HDL [Mass ratio] 3.4 {ratio} NINF - 4.5 [facility] Interpretation and review of laboratory results Abnormal [facility] Triglyceride [Mass/Vol] 103 mg/dL NINF - 150 mg/dL [facility] Calculated LDL Cholesterol 64 mg/dL Normal 0-99 [facility] Comment on above: Result Comment: [<10 0 mg/dL: Optimal] [100-129 mg/dL: Near Optimal] [130-159 mg/dL: Borderline High] [160-189 mg/dL: High] [>189 mg/dL: Very High] Performed By: #### M GO, CHM7, IPB, CKB, TRIG, LDO #### [facility] (DEFAULT) [address] [place] [address] 90956 Cholesterol [Mass/Vol] 121 mg/dL Normal <200 [facility] Comment on above: Result Comment: [<20 0 mg/dL: Desirable] [200-239 mg/dL: Borderline High] [>239 mg/dL: High] Performed By: #### M GO, CHM7, IPB, CKB, TRIG, LDO #### [facility] (DEFAULT) [address] [place] [address] 03107 Cholesterol in HDL [Mass/Vol] 36 mg/dL Low >=40 [facility] Comment on above: Result Comment: [<40 mg/dL: Low (High Risk)] [>59 mg/dL: High (Low Risk)] Performed By: #### M GO, CHM7, IPB, CKB, TRIG, LDO #### [facility] (DEFAULT) [address] [place] [address] 06905 Non HDL Cholesterol 85 mg/dL Normal <130 [facility] Comment on above: Performed By: #### M GO, CHM7, IPB, CKB, TRIG, LDO #### [facility] (DEFAULT) [address] [place] [address] 64043 Total Cholesterol/HDL Ratio 3.4 Normal <4.5 [facility] Comment on above: Performed By: #### M GO, CHM7, IPB, CKB, TRIG, LDO #### [facility] (DEFAULT) [address] [place] [address] 08074 Triglyceride [Mass/Vol] 103 mg/dL Normal <150 [facility] Comment on above: Result Comment: [<15 0 mg/dL: Desirable] [150-199 mg/dL: Borderline] [200-499 mg/dL: High] [>500 mg/dL: Very High] Performed By: #### M CHEMO TELLO7, IPB, CKB, TRIG, LDO #### [facility] (DEFAULT) [address] [place] [address] 05201 MAGNESIUMon 05-12-2024 Magnesium [Mass/Vol] 2.6 mg/dL 1.6 - 2 .6 mg/dL [facility] Magnesium [Mass/Vol] 2.6 mg/dL Normal 1.6-2.6 [facility] Comment on above: Performed By: #### M ROXY TELLO, IPB, CKB, TRIG, LDO #### [facility] (DEFAULT) [address] [place] [address] 72376 No Panel Informationon 05-12 [facility] Interpretation and review of laboratory results Normal [facility] PHOSPHATE, INORGANICon 05-12 Phosphate [Mass/Vol] 3.7 mg/dL 2.2 - 4 .6 mg/dL [facility] Phosphorous 3.7 mg/dL Normal 2.2-4.6 [facility] Comment on above: Performed By: #### M RITA TELLOMMarleny, IPB, CKB, TRIG, LDO #### [facility] (DEFAULT) [address] [place] [address] 09898 CBC,PLATELETSon 05-11-2024 Erythrocyte distribution width (RBC) [Ratio] 18.8 % High 10.8 - 14.9 % [facility] Hematocrit (Bld) [Volume fraction] 27.1 % Low 34.9 - 44.3 % [facility] Hemoglobin (Bld) [Mass/Vol] 8 g/dL Low 11.4 - 15.2 g/dL [facility] Interpretation and review of laboratory results Abnormal [facility] MCH (RBC) [Entitic mass] 30.2 pg 25.9 - 33.9 pg [facility] MCHC (RBC) [Mass/Vol] 29.5 g/dL Low 31.4 - 35.9 g/dL [facility] MCV (RBC) [Entitic vol] 102.3 fL High 79.6 - 97.7 fL [facility] Platelet mean volume (Bld) [Entitic vol] 12.1 fL 8.5 - 12.2 fL [facility] Platelets (Bld) [#/Vol] 198 10*3/uL 150 - 393 K/uL [facility] RBC (Bld) [#/Vol] 2.65 10*6/uL Low [facility] WBC (Bld) [#/Vol] 10.52 10*3/uL 3.99 - 11.19 K/uL [facility] Hematocrit (Bld) [Volume fraction] 27.1 % Low 34.9-44.3 [facility] Comment on above: Performed By: #### M OMER, CHM7, IPB, CKB, TRIG, LDO #### [facility] (DEFAULT) [address] [place] [address] 90389 Hemoglobin (Bld) [Mass/Vol] 8.0 g/dL Low 11.4-15.2 [facility] Comment on above: Performed By: #### M OMER, CHM7, IPB, CKB, TRIG, LDO #### [facility] (DEFAULT) [address] [place] [address] 14469 MCV (RBC) [Entitic vol] 102.3 fL High 79.6-97.7 [facility] Comment on above: Performed By: #### M OMER, CHM7, IPB, CKB, TRIG, LDO #### [facility] (DEFAULT) [address] [place] [address] 93998 Mean Cell Hgb 30.2 pg Normal 25.9-33.9 [facility] Comment on above: Performed By: #### M GO, CHM7, IPB, CKB, TRIG, LDO #### [facility] (DEFAULT) [address] [place] [address] 25716 Mean Cell Hgb Conc 29.5 g/dL Low 31.4-35.9 [facility] Comment on above: Performed By: #### M GO, CHM7, IPB, CKB, TRIG, LDO #### [facility] (DEFAULT) [address] [place] [address] 10580 Platelet mean volume (Bld) [Entitic vol] 12.1 fL Normal 8.5-12.2 [facility] Comment on above: Performed By: #### M GO, CHM7, IPB, CKB, TRIG, LDO #### [facility] (DEFAULT) [address] [place] [address] 04966 Platelets (Bld) [#/Vol] 198 10*3/uL Normal 150-393 [facility] Comment on above: Performed By: #### M GO, CHM7, IPB, CKB, TRIG, LDO #### [facility] (DEFAULT) [address] [place] [address] 89572 RBC (Bld) [#/Vol] 2.65 10*6/uL Low 3.91-5.04 [facility] Comment on above: Performed By: #### M GO, CHM7, IPB, CKB, TRIG, LDO #### [facility] (DEFAULT) [address] [place] [address] 84073 RBC Distribution 18.8 % High 10.8-14.9 [facility] Comment on above: Performed By: #### M GO, CHM7, IPB, CKB, TRIG, LDO #### [facility] (DEFAULT) [address] [place] [address] 51945 WBC (Bld) [#/Vol] 10.52 10*3/uL Normal 3.99-11.19 [facility] Comment on above: Performed By: #### M OMER CHM7, IPB, CKB, TRIG, LDO #### [facility] (DEFAULT) [address] [place] [address] CHEM 7 (LYTES,BUN,CREA,GLUC) Ordered By: Kvng Hurst on 05-11-2024 Anion gap [Moles/Vol] 12 mmol/L 7 - 17 mmol/L [facility] Chloride [Moles/Vol] 118 mmol/L High 98 - 10 8 mmol/L [facility] CO2 [Moles/Vol] 19 mmol/L Low 21 - 31 mmol/L [facility] Creatinine [Mass/Vol] 1.6 mg/dL High 0.50 - 1.20 mg/dL [facility] eGFR, CKD-EPI, Female 32 Low - PINF [facility] Glucose [Mass/Vol] 64 mg/dL Low 70 - 99 mg/dL [facility] Interpretation and review of laboratory results Abnormal [facility] Osmolality Calc [Osmolality] 309 High [facility] Potassium [Moles/Vol] 2.8 mmol/L Critically low 3.5 - 5.0 mmol/L [facility] Sodium [Moles/Vol] 146 mmol/L High 135 - 145 mmol/L [facility] Urea nitrogen [Mass/Vol] 41 mg/dL High 7 - 25 mg/dL [facility] Urea nitrogen/Creatinine [Mass ratio] 26 mg/mg [facility] CHEM 7 (LYTES,BUN,CREA,GLUC) on 05-11-2024 Anion gap [Moles/Vol] 12 mmol/L Normal 7-17 [facility] Comment on above: Performed By: #### M OMER CHM7, IPB, CKB, TRIG, LDO #### [facility] (DEFAULT) [address] [place] [address] 47961 Chloride [Moles/Vol] 118 mmol/L High 98-108 [facility] Comment on above: Performed By: #### M GO, CHM7, IPB, CKB, TRIG, LDO #### [facility] (DEFAULT) [address] [place] [address] 15898 CO2 [Moles/Vol] 19 mmol/L Low 21-31 [facility] Comment on above: Performed By: #### M GO, CHM7, IPB, CKB, TRIG, LDO #### [facility] (DEFAULT) [address] [place] [address] 10925 Creatinine [Mass/Vol] 1.60 mg/dL High 0.50-1.20 [facility] Comment on above: Performed By: #### M GO, CHM7, IPB, CKB, TRIG, LDO #### [facility] (DEFAULT) [address] [place] [address] 02797 GFR/1.73 sq M.predicted among non-blacks MDRD (S/P/Bld) [Vol rate/Area] 32 mL/min/{1.73_m2} Low >=60 [facility] Comment on above: Result Comment: Repo rted eGFR is based on the CKD-EPI 2020 equation using creatinine, age, and sex. Performed By: #### M GO, CHM7, IPB, CKB, TRIG, LDO #### [facility] (DEFAULT) [address] [place] [address] 35377 Glucose [Mass/Vol] 64 mg/dL Low 70-99 [facility] Comment on above: Performed By: #### M GO, CHM7, IPB, CKB, TRIG, LDO #### [facility] (DEFAULT) [address] [place] [address] 33201 Osmolality [Osmolality] 309 mosm/kg High 278-305 [facility] Comment on above: Performed By: #### M GO, CHM7, IPB, CKB, TRIG, LDO #### [facility] (DEFAULT) [address] [place] [address] 85263 Potassium [Moles/Vol] 2.8 mmol/L Critically low 3.5-5.0 [facility] Comment on above: Performed By: #### M GO, CHM7, IPB, CKB, TRIG, LDO #### [facility] (DEFAULT) [address] [place] [address] 21918 Sodium [Moles/Vol] 146 mmol/L High 135-145 [facility] Comment on above: Performed By: #### M GO, CHM7, IPB, CKB, TRIG, LDO #### [facility] (DEFAULT) [address] [place] [address] 55138 Urea nitrogen [Mass/Vol] 41 mg/dL High 7-25 [facility] Comment on above: Performed By: #### M GO, CHM7, IPB, CKB, TRIG, LDO #### [facility] (DEFAULT) [address] [place] [address] 06227 Urea nitrogen/Creatinine [Mass ratio] 26 mg/mg Normal [facility] Comment on above: Performed By: #### M GO, CHM7, IPB, CKB, TRIG, LDO #### [facility] (DEFAULT) [address] [place] [address] 50953 Cardiac echo study Procedure on 05-11-2024 Radiology Study observation (narrative) [facility] FOLATE, SERUMon 05-11-2024 Folate [Mass/Vol] 19.69 ng/mL 5.38 - PINF ng/mL [facility] Folate 19.69 ng/mL Normal >5.38 [facility] Comment on above: Performed By: #### M GO, CHM7, IPB, CKB, TRIG, LDO #### [facility] (DEFAULT) [address] [place] [address] 66004 GLUCOSE POCon 05-11-2024 Glucose [Mass/Vol] 108 mg/dL High 70 - 99 mg/dL [facility] Interpretation and review of laboratory results Abnormal [facility] POC Sample Type [facility] Glucose [Mass/Vol] 89 mg/dL 70 - 99 mg/dL [facility] POC Sample Type [facility] MAGNESIUMon 05-11-2024 Interpretation and review of laboratory results Abnormal [facility] Magnesium [Mass/Vol] 1.2 mg/dL Low 1.6 - 2 .6 mg/dL [facility] Magnesium [Mass/Vol] 1.2 mg/dL Low 1.6-2.6 [facility] Comment on above: Performed By: #### M GO, CHM7, IPB, CKB, TRIG, LDO #### [facility] (DEFAULT) [address] [place] [address] 06199 No Panel Informationon 05-11 Interpretation and review of laboratory results Normal [facility] PHOSPHATE, INORGANICon 05-11 Phosphate [Mass/Vol] 2.8 mg/dL 2.2 - 4 .6 mg/dL [facility] Phosphorous 2.8 mg/dL Normal 2.2-4.6 [facility] Comment on above: Performed By: #### M GO, CHM7, IPB, CKB, TRIG, LDO #### [facility] (DEFAULT) [address] [place] [address] 29186 Bacteria identified Cx Nom ( Bld)on 05-10-2024 Bacteria identified Cx Nom (Unsp spec) NO GROWTH DAY 5 OF 5 [facility] Bacteria identified Cx Nom (Unsp spec) NO GROWTH DAY 5 OF 5 [facility] Bacteria identified Respirat ory culture Nom (Unsp spec)Ordered By: Michael Mora on 05-10-2024 Bacteria identified Cx Nom (Unsp spec) Growth [facility] Bacteria identified Cx Nom (Unsp spec) Light Growth Common oropharyngeal microbes [facility] Microscopic observation Other stain Nom (Unsp spec) Neutrophils, Heavy [facility] Microscopic observation Other stain Nom (Unsp spec) Contaminating bacteria and epithelials present [facility] Microscopic observation Other stain Nom (Unsp spec) Specimen is of optimum quality [facility] CBC,PLATELETSon 05-10-2024 Erythrocyte distribution width (RBC) [Ratio] 19.2 % High 10.8 - 14.9 % [facility] Hematocrit (Bld) [Volume fraction] 27.9 % Low 34.9 - 44.3 % [facility] Hemoglobin (Bld) [Mass/Vol] 8.4 g/dL Low 11.4 - 15.2 g/dL [facility] Interpretation and review of laboratory results Abnormal [facility] MCH (RBC) [Entitic mass] 30.1 pg 25.9 - 33.9 pg [facility] MCHC (RBC) [Mass/Vol] 30.1 g/dL Low 31.4 - 35.9 g/dL [facility] MCV (RBC) [Entitic vol] 100 fL High 79.6 - 97.7 fL [facility] Platelet mean volume (Bld) [Entitic vol] 12.6 fL High 8.5 - 12.2 fL [facility] Platelets (Bld) [#/Vol] 210 10*3/uL 150 - 393 K/uL [facility] RBC (Bld) [#/Vol] 2.79 10*6/uL Low [facility] WBC (Bld) [#/Vol] 16 10*3/uL High 3.99 - 11.19 K/uL [facility] Hematocrit (Bld) [Volume fraction] 27.9 % Low 34.9-44.3 [facility] Comment on above: Performed By: #### G ASVL #### [facility] (DEFAULT) [address] [place] [address] Hemoglobin (Bld) [Mass/Vol] 8.4 g/dL Low 11.4-15.2 [facility] Comment on above: Performed By: #### G ASVL #### [facility] (DEFAULT) [address] [place] [address] 36813 MCV (RBC) [Entitic vol] 100.0 fL High 79.6-97.7 [facility] Comment on above: Performed By: #### G ASVL #### [facility] (DEFAULT) [address] [place] [address] 46953 Mean Cell Hgb 30.1 pg Normal 25.9-33.9 [facility] Comment on above: Performed By: #### G ASVL #### [facility] (DEFAULT) [address] [place] [address] 60337 Mean Cell Hgb Conc 30.1 g/dL Low 31.4-35.9 [facility] Comment on above: Performed By: #### G ASVL #### [facility] (DEFAULT) [address] [place] [address] 04753 Platelet mean volume (Bld) [Entitic vol] 12.6 fL High 8.5-12.2 [facility] Comment on above: Performed By: #### G ASVL #### [facility] (DEFAULT) [address] [place] [address] 96864 Platelets (Bld) [#/Vol] 210 10*3/uL Normal 150-393 [facility] Comment on above: Performed By: #### G ASVL #### [facility] (DEFAULT) [address] [place] [address] 79381 RBC (Bld) [#/Vol] 2.79 10*6/uL Low 3.91-5.04 [facility] Comment on above: Performed By: #### G ASVL #### [facility] (DEFAULT) [address] [address] RBC Distribution 19.2 % High 10.8-14.9 [facility] Comment on above: Performed By: #### G ASVL #### [facility] (DEFAULT) [address] [place] [address] WBC (Bld) [#/Vol] 16.00 10*3/uL High 3.99-11.19 [facility] [facility] Comment on above: Performed By: #### G ASVL #### [facility] (DEFAULT) [address] [place] [address] Erythrocyte distribution width (RBC) [Ratio] 19.2 % High 10.8 - 14.9 % [facility] Hematocrit (Bld) [Volume fraction] 26.4 % Low 34.9 - 44.3 % [facility] Hemoglobin (Bld) [Mass/Vol] 7.9 g/dL Low 11.4 - 15.2 g/dL [facility] Interpretation and review of laboratory results Abnormal [facility] MCH (RBC) [Entitic mass] 30.3 pg 25.9 - 33.9 pg [facility] MCHC (RBC) [Mass/Vol] 29.9 g/dL Low 31.4 - 35.9 g/dL [facility] MCV (RBC) [Entitic vol] 101.1 fL High 79.6 - 97.7 fL [facility] Platelet mean volume (Bld) [Entitic vol] 12.6 fL High 8.5 - 12.2 fL [facility] Platelets (Bld) [#/Vol] 161 10*3/uL 150 - 393 K/uL [facility] RBC (Bld) [#/Vol] 2.61 10*6/uL Low [facility] WBC (Bld) [#/Vol] 18.44 10*3/uL High 3.99 - 11.19 K/uL [facility] CHEM 7 (LYTES,BUN,CREA,GLUC) on 05-10-2024 Anion gap [Moles/Vol] 14 mmol/L 7 - 17 mmol/L [facility] Chloride [Moles/Vol] 105 mmol/L 98 - 10 8 mmol/L [facility] CO2 [Moles/Vol] 27 mmol/L 21 - 31 mmol/L [facility] Creatinine [Mass/Vol] 2.5 mg/dL High 0.50 - 1.20 mg/dL [facility] eGFR, CKD-EPI, Female 19 Low - PINF [facility] Glucose [Mass/Vol] 106 mg/dL High 70 - 99 mg/dL [facility] Interpretation and review of laboratory results Abnormal [facility] Osmolality Calc [Osmolality] 309 High [facility] Potassium [Moles/Vol] 4 mmol/L 3.5 - 5.0 mmol/L [facility] Sodium [Moles/Vol] 142 mmol/L 135 - 145 mmol/L [facility] Urea nitrogen [Mass/Vol] 48 mg/dL High 7 - 25 mg/dL [facility] Urea nitrogen/Creatinine [Mass ratio] 19 mg/mg [facility] CONTINUOUS CARDIAC MONITORIN G STRIPon 05-10-2024 [facility] FERRITINon 05-10-2024 Ferritin [Mass/Vol] 634.7 ng/mL High 7.3 - 270.7 ng/mL [facility] Interpretation and review of laboratory results Abnormal [facility] GLUCOSE POCon 05-10-2024 Glucose [Mass/Vol] 145 mg/dL High 70 - 99 mg/dL [facility] Glucose [Mass/Vol] 134 mg/dL High 70 - 99 mg/dL [facility] Glucose [Mass/Vol] 94 mg/dL 70 - 99 mg/dL [facility] IONIZED CALCIUM, WHOLE BLOOD Ordered By: Cecil Guillen on 05-10-2024 Calcium.ionized (Bld) [Moles/Vol] 4.07 mg/dL Low 4.60 - 5.30 mg/dL [facility] Interpretation and review of laboratory results Abnormal [facility] IRON/IRON BINDING/TRANSFERRI Non 05-10-2024 Interpretation and review of laboratory results Abnormal [facility] Iron [Mass/Vol] 68 ug/dL [facility] Iron binding capacity [Mass/Vol] 140 Low [facility] Iron saturation [Mass fraction] 49 % 20 - 55 % [facility] Transferrin [Mass/Vol] 112 mg/dL Low 200 - 400 mg/dL [facility] MAGNESIUMon 05-10-2024 Magnesium [Mass/Vol] 2 mg/dL 1.6 - 2 .6 mg/dL [facility] No Panel Informationon 05-10 Interpretation and review of laboratory results Abnormal [facility] POC Sample Type CAPBL [facility] Interpretation and review of laboratory results Normal [facility] PHOSPHATE, INORGANICon 05-10 Phosphate [Mass/Vol] 3.7 mg/dL 2.2 - 4 .6 mg/dL [facility] VITAMIN B12on 05-10-2024 Cobalamin (Vitamin B12) [Mass/Vol] 1322 pg/mL High 211 - 911 pg/mL [facility] Interpretation and review of laboratory results Abnormal [facility] BLOOD CULTUREon 05-09-2024 Bacteria identified Cx Nom (Unsp spec) NO GROWTH DAY 5 OF 5 Normal [facility] Comment on above: Order Comment: 2 Bot tles (1 Set - consists of 1 Aerobic bottle and 1 Anaerobic bottle) -1st Peripheral DrawFor vacutainer method draw: Fill aerobic bottle first, then anaerobic Performed By: #### M OMER, CHM7, IPB, CKB, TRIG, LDO #### [facility] (DEFAULT) [address] [place] [address] C DIFFICILE TWO STEPOrdered By: Stanford Auguste on 05-09-2024 C. difficile DNA JEANA+probe Ql (Unsp spec) Negative Negative [facility] Interpretation and review of laboratory results Normal [facility] CBC,PLATELETSon 05-09-2024 Hematocrit (Bld) [Volume fraction] 26.4 % Low 34.9-44.3 [facility] Comment on above: Performed By: #### M GO, CHM7, IPB, CKB, TRIG, LDO #### [facility] (DEFAULT) [address] [place] [address] Hemoglobin (Bld) [Mass/Vol] 7.9 g/dL Low 11.4-15.2 [facility] Comment on above: Performed By: #### M GO, CHM7, IPB, CKB, TRIG, LDO #### [facility] (DEFAULT) [address] [place] [address]77 MCV (RBC) [Entitic vol] 101.1 fL High 79.6-97.7 [facility] Comment on above: Performed By: #### M GO, CHM7, IPB, CKB, TRIG, LDO #### [facility] (DEFAULT) [address] [place] [address] 36292 Mean Cell Hgb 30.3 pg Normal 25.9-33.9 [facility] Comment on above: Performed By: #### M GO, CHM7, IPB, CKB, TRIG, LDO #### [facility] (DEFAULT) [address] [place] [address] 36420 Mean Cell Hgb Conc 29.9 g/dL Low 31.4-35.9 [facility] Comment on above: Performed By: #### M GO, CHM7, IPB, CKB, TRIG, LDO #### [facility] (DEFAULT) [address] [place] [address] 37183 Platelet mean volume (Bld) [Entitic vol] 12.6 fL High 8.5-12.2 [facility] Comment on above: Performed By: #### M GO, CHM7, IPB, CKB, TRIG, LDO #### [facility] (DEFAULT) [address] [place] [address] Platelets (Bld) [#/Vol] 161 10*3/uL Normal 150-393 [facility] Comment on above: Performed By: #### M GO, CHM7, IPB, CKB, TRIG, LDO #### [facility] (DEFAULT) [address] [place] [address] 73446 RBC (Bld) [#/Vol] 2.61 10*6/uL Low 3.91-5.04 [facility] Comment on above: Performed By: #### M GO, CHM7, IPB, CKB, TRIG, LDO #### [facility] (DEFAULT) [address] [place] [address] 80977 RBC Distribution 19.2 % High 10.8-14.9 [facility] Comment on above: Performed By: #### M GO, CHM7, IPB, CKB, TRIG, LDO #### [facility] (DEFAULT) [address] [place] [address] 64665 WBC (Bld) [#/Vol] 18.44 10*3/uL High 3.99-11.19 [facility] Comment on above: Performed By: #### M GO, CHM7, IPB, CKB, TRIG, LDO #### [facility] (DEFAULT) [address] [place] [address] 91454 Erythrocyte distribution width (RBC) [Ratio] 19.2 % High 10.8 - 14.9 % [facility] Hematocrit (Bld) [Volume fraction] 28.1 % Low 34.9 - 44.3 % [facility] Hemoglobin (Bld) [Mass/Vol] 8.8 g/dL Low 11.4 - 15.2 g/dL [facility] Interpretation and review of laboratory results Abnormal [facility] MCH (RBC) [Entitic mass] 30.6 pg 25.9 - 33.9 pg [facility] MCHC (RBC) [Mass/Vol] 31.3 g/dL Low 31.4 - 35.9 g/dL [facility] MCV (RBC) [Entitic vol] 97.6 fL 79.6 - 97.7 fL [facility] Platelet mean volume (Bld) [Entitic vol] [facility] Platelets (Bld) [#/Vol] 118 10*3/uL Low 150 - 393 K/uL [facility] RBC (Bld) [#/Vol] 2.88 10*6/uL Low [facility] WBC (Bld) [#/Vol] 16.92 10*3/uL High 3.99 - 11.19 K/uL [facility] Hematocrit (Bld) [Volume fraction] 28.1 % Low 34.9-44.3 [facility] Comment on above: Performed By: #### R ES #### [facility] (DEFAULT) [address] [address] Hemoglobin (Bld) [Mass/Vol] 8.8 g/dL Low 11.4-15.2 [facility] Comment on above: Performed By: #### R ES #### [facility] (DEFAULT) [address] [address] MCV (RBC) [Entitic vol] 97.6 fL Normal 79.6-97.7 [facility] Comment on above: Performed By: #### R ES #### [facility] (DEFAULT) [address] [address] Mean Cell Hgb 30.6 pg Normal 25.9-33.9 [facility] Comment on above: Performed By: #### R ES #### [facility] (DEFAULT) [address] [address] Mean Cell Hgb Conc 31.3 g/dL Low 31.4-35.9 [facility] Comment on above: Performed By: #### R ES #### [facility] (DEFAULT) [address] [address] Mean Platelet Volume Normal [facility] Comment on above: Result Comment: Not measured Performed By: #### R ES #### [facility] (DEFAULT) [address] [address] Platelets (Bld) [#/Vol] 118 10*3/uL Low 150-393 [facility] Comment on above: Performed By: #### R ES #### [facility] (DEFAULT) [address] [place] [address]247 RBC (Bld) [#/Vol] 2.88 10*6/uL Low 3.91-5.04 [facility] Comment on above: Performed By: #### R ES #### [facility] (DEFAULT) [address] [place] [address] 30649 RBC Distribution 19.2 % High 10.8-14.9 [facility] Comment on above: Performed By: #### R ES #### [facility] (DEFAULT) [address] [place] [address]87 WBC (Bld) [#/Vol] 16.92 10*3/uL High 3.99-11.19 [facility] Comment on above: Performed By: #### R ES #### [facility] (DEFAULT) [address] [place] [address] CHEM 7 (LYTES,BUN,CREA,GLUC) on 05-09-2024 Anion gap [Moles/Vol] 14 mmol/L Normal 7-17 [facility] Comment on above: Performed By: #### M GO, CHM7, IPB, CKB, TRIG, LDO #### [facility] (DEFAULT) [address] [place] [address]20 Chloride [Moles/Vol] 105 mmol/L Normal 98-108 [facility] Comment on above: Performed By: #### M GO, CHM7, IPB, CKB, TRIG, LDO #### [facility] (DEFAULT) [address] [place] [address] CO2 [Moles/Vol] 27 mmol/L Normal 21-31 [facility] Comment on above: Performed By: #### M GO, CHM7, IPB, CKB, TRIG, LDO #### [facility] (DEFAULT) [address] [place] [address] Creatinine [Mass/Vol] 2.50 mg/dL High 0.50-1.20 [facility] Comment on above: Performed By: #### M GO, CHM7, IPB, CKB, TRIG, LDO #### [facility] (DEFAULT) [address] [place] [address]778 GFR/1.73 sq M.predicted among non-blacks MDRD (S/P/Bld) [Vol rate/Area] 19 mL/min/{1.73_m2} Low >=60 [facility] Comment on above: Result Comment: Repo rted eGFR is based on the CKD-EPI 2020 equation using creatinine, age, and sex. Performed By: #### M GO, CHM7, IPB, CKB, TRIG, LDO #### [facility] (DEFAULT) [address] [place] [address]107 Glucose [Mass/Vol] 106 mg/dL High 70-99 [facility] Comment on above: Performed By: #### M GO, CHM7, IPB, CKB, TRIG, LDO #### [facility] (DEFAULT) [address] [place] [address]69 Osmolality [Osmolality] 309 mosm/kg High 278-305 [facility] Comment on above: Performed By: #### M GO, CHM7, IPB, CKB, TRIG, LDO #### [facility] (DEFAULT) [address] [place] [address] 19474 Potassium [Moles/Vol] 4.0 mmol/L Normal 3.5-5.0 [facility] Comment on above: Performed By: #### M GO, CHM7, IPB, CKB, TRIG, LDO #### [facility] (DEFAULT) [address] [place] [address]704 Sodium [Moles/Vol] 142 mmol/L Normal 135-145 [facility] Comment on above: Performed By: #### M GO, CHM7, IPB, CKB, TRIG, LDO #### [facility] (DEFAULT) [address] [place] [address] Urea nitrogen [Mass/Vol] 48 mg/dL High 7-25 [facility] Comment on above: Performed By: #### M GO, CHM7, IPB, CKB, TRIG, LDO #### [facility] (DEFAULT) [address] [place] [address] Urea nitrogen/Creatinine [Mass ratio] 19 mg/mg Normal [facility] Comment on above: Performed By: #### M GO, CHM7, IPB, CKB, TRIG, LDO #### [facility] (DEFAULT) [address] [place] [address] Anion gap [Moles/Vol] 13 mmol/L 7 - 17 mmol/L [facility] Chloride [Moles/Vol] 104 mmol/L 98 - 10 8 mmol/L [facility] CO2 [Moles/Vol] 27 mmol/L 21 - 31 mmol/L [facility] Creatinine [Mass/Vol] 2.66 mg/dL High 0.50 - 1.20 mg/dL [facility] eGFR, CKD-EPI, Female 17 Low - PINF [facility] Glucose [Mass/Vol] 139 mg/dL High 70 - 99 mg/dL [facility] Interpretation and review of laboratory results Abnormal [facility] Osmolality Calc [Osmolality] 303 [facility] Potassium [Moles/Vol] 4.1 mmol/L 3.5 - 5.0 mmol/L [facility] Sodium [Moles/Vol] 140 mmol/L 135 - 145 mmol/L [facility] Urea nitrogen [Mass/Vol] 35 mg/dL High 7 - 25 mg/dL [facility] Urea nitrogen/Creatinine [Mass ratio] 13 mg/mg [facility] Anion gap [Moles/Vol] 13 mmol/L Normal 7-17 [facility] Comment on above: Performed By: #### M GO, CHM7, IPB, CKB, TRIG, LDO #### [facility] (DEFAULT) [address] [place] [address]682 Chloride [Moles/Vol] 104 mmol/L Normal 98-108 [facility] Comment on above: Performed By: #### M GO, CHM7, IPB, CKB, TRIG, LDO #### [facility] (DEFAULT) [address] [place] [address] 36882 CO2 [Moles/Vol] 27 mmol/L Normal 21-31 [facility] Comment on above: Performed By: #### M GO, CHM7, IPB, CKB, TRIG, LDO #### [facility] (DEFAULT) [address] [place] [address]652 Creatinine [Mass/Vol] 2.66 mg/dL High 0.50-1.20 [facility] Comment on above: Performed By: #### M GO, CHM7, IPB, CKB, TRIG, LDO #### [facility] (DEFAULT) [address] [place] [address] 62721 GFR/1.73 sq M.predicted among non-blacks MDRD (S/P/Bld) [Vol rate/Area] 17 mL/min/{1.73_m2} Low >=60 [facility] Comment on above: Result Comment: Repo rted eGFR is based on the CKD-EPI 2020 equation using creatinine, age, and sex. Performed By: #### M GO, CHM7, IPB, CKB, TRIG, LDO #### [facility] (DEFAULT) [address] [place] [address]492 Glucose [Mass/Vol] 139 mg/dL High 70-99 [facility] Comment on above: Performed By: #### M GO, CHM7, IPB, CKB, TRIG, LDO #### [facility] (DEFAULT) [address] [place] [address]997 Osmolality [Osmolality] 303 mosm/kg Normal 278-305 [facility] Comment on above: Performed By: #### M GO, CHM7, IPB, CKB, TRIG, LDO #### [facility] (DEFAULT) [address] [place] [address] 21206 Potassium [Moles/Vol] 4.1 mmol/L Normal 3.5-5.0 [facility] Comment on above: Performed By: #### M GO, CHM7, IPB, CKB, TRIG, LDO #### [facility] (DEFAULT) [address] [place] [address] 12331 Sodium [Moles/Vol] 140 mmol/L Normal 135-145 [facility] Comment on above: Performed By: #### M GO, CHM7, IPB, CKB, TRIG, LDO #### [facility] (DEFAULT) [address] [place] [address] 08882 Urea nitrogen [Mass/Vol] 35 mg/dL High 7-25 [facility] Comment on above: Performed By: #### M GO, CHM7, IPB, CKB, TRIG, LDO #### [facility] (DEFAULT) [address] [place] [address] Urea nitrogen/Creatinine [Mass ratio] 13 mg/mg Normal [facility] Comment on above: Performed By: #### M GO, CHM7, IPB, CKB, TRIG, LDO #### [facility] (DEFAULT) [address] [place] [address] EXTRA MICROon 05-09-2024 [facility] FERRITINon 05-09-2024 Ferritin [Mass/Vol] 634.7 ng/mL High 7.3-270.7 [facility] Comment on above: Performed By: #### M GO, CHM7, IPB, CKB, TRIG, LDO #### [facility] (DEFAULT) [address] [place] [address] GENERAL PROCEDUREon 05-09-19 [facility] GENERAL PROCEDUREOrdered By: Mulugeta Barker on 05-09-2024 [facility] Work Phone: GLUCOSE POCon 05-09-2024 Glucose [Mass/Vol] 109 mg/dL High 70 - 99 mg/dL [facility] Glucose [Mass/Vol] 118 mg/dL High 70 - 99 mg/dL [facility] Glucose [Mass/Vol] 144 mg/dL High 70 - 99 mg/dL [facility] Glucose [Mass/Vol] 164 mg/dL High 70 - 99 mg/dL [facility] IONIZED CALCIUM, WHOLE BLOOD on 05-09-2024 ICA 4.07 mg/dL Low 4.60-5.30 [facility] Comment on above: Order Comment: If io nized calcium is less than or equal to 3.0 mg/dL, recheck ionized calcium 2 hours after replacement. Performed By: #### M OMER, CHM7, IPB, CKB, TRIG, LDO #### [facility] (DEFAULT) [address] [place] [address] ICA 4.38 mg/dL Low 4.60-5.30 [facility] Comment on above: Order Comment: If io nized calcium is less than or equal to 3.0 mg/dL, recheck ionized calcium 2 hours after replacement. Performed By: #### M GO, CHM7, IPB, CKB, TRIG, LDO #### [facility] (DEFAULT) [address] [place] [address] IONIZED CALCIUM, WHOLE BLOOD Ordered By: Diana Roblero on 05-09-2024 Calcium.ionized (Bld) [Moles/Vol] 4.38 mg/dL Low 4.60 - 5.30 mg/dL [facility] Interpretation and review of laboratory results Abnormal [facility] IRON/IRON BINDING/TRANSFERRI Non 05-09-2024 Iron [Mass/Vol] 68 ug/dL Normal 40-174 [facility] Comment on above: Performed By: #### M GO, CHM7, IPB, CKB, TRIG, LDO #### [facility] (DEFAULT) [address] [place] [address] 51232 Iron Saturation 49 % Normal 20-55 [facility] Comment on above: Performed By: #### M GO, CHM7, IPB, CKB, TRIG, LDO #### [facility] (DEFAULT) [address] [place] [address] 37393 Total Iron Binding Capacity 140 mcg/dL Low 250-425 [facility] Comment on above: Performed By: #### M GO, CHM7, IPB, CKB, TRIG, LDO #### [facility] (DEFAULT) [address] [place] [address] 46224 Transferrin [Mass/Vol] 112 mg/dL Low 200-400 [facility] Comment on above: Performed By: #### M GO, CHM7, IPB, CKB, TRIG, LDO #### [facility] (DEFAULT) [address] [place] [address] 411[address] MAGNESIUMon 05-09-2024 Magnesium [Mass/Vol] 2.0 mg/dL Normal 1.6-2.6 [facility] Comment on above: Performed By: #### M GO, CHM7, IPB, CKB, TRIG, LDO #### [facility] (DEFAULT) [address] [place] [address] 52866 Magnesium [Mass/Vol] 2 mg/dL 1.6 - 2 .6 mg/dL [facility] Magnesium [Mass/Vol] 2.0 mg/dL Normal 1.6-2.6 [facility] Comment on above: Performed By: #### M GO, CHM7, IPB, CKB, TRIG, LDO #### [facility] (DEFAULT) [address] [place] [address] 30571 MR Cervical spine WO and W c ontrast Brittani 05-09-2024 RADIOLOGY RADIOLOGY [facility] Radiology Study observation (narrative) [facility] MRI SPINE CERVICAL WITH AND WITHOUT CONTRASTon [...] artifact in the upper thoracic spine. Normal [facility] No Panel Informationon 05-09 Interpretation and review of laboratory results Normal [facility] Interpretation and review of laboratory results Abnormal [facility] POC Sample Type CAPBL [facility] PHOSPHATE, INORGANICon 05-09 Phosphorous 3.7 mg/dL Normal 2.2-4.6 [facility] Comment on above: Performed By: #### M OMER, RITAM7, IPB, CKB, TRIG, LDO #### [facility] (DEFAULT) [address] [place] [address]687 Interpretation and review of laboratory results Normal [facility] Phosphate [Mass/Vol] 3.8 mg/dL 2.2 - 4 .6 mg/dL [facility] Phosphate [Mass/Vol] 3.8 mg/dL 2.2 - 4 .6 mg/dL [facility] Phosphorous 3.8 mg/dL Normal 2.2-4.6 [facility] Comment on above: Order Comment: If ph osphate level is less than or equal to 2.0 mg/dL, recheck phosphate 6 hours after replacement. Performed By: #### F CRAG #### [facility] (DEFAULT) [address] [place] [address] Phosphorous 3.8 mg/dL Normal 2.2-4.6 [facility] Comment on above: Performed By: #### M OMER, RITAM7, IPB, CKB, TRIG, LDO #### [facility] (DEFAULT) [address] [place] [address]382 US.doppler Upper extremity v ein - leftOrdered By: Pratik Hooper on 05-09-2024 [facility] Work Phone: US.doppler Upper extremity v ein - lefton 05-09-2024 Radiology Study observation (narrative) [facility] VENOUS BLOOD GASon Base excess Calc (Bld) [Moles/Vol] 2.1 mmol/L -3.0 - 3.0 mmol/L [facility] CO2 (Bld) [Partial pressure] 41 mm[Hg] [facility] HCO3 (Bld) [Moles/Vol] 27 mmol/L 22 - 29 mmol/L [facility] Interpretation and review of laboratory results Abnormal [facility] Oxygen (Bld) [Partial pressure] 51 mm[Hg] mm Hg [facility] Oxygen saturation in Blood 85 % High 70 - 80 % [facility] pH (Bld) 7.42 [pH] 7.32 - 7.43 [facility] Specimen source Nom (Unsp spec) Venous [facility] Base Excess 2.1 mmol/L Normal -3.0-3.0 [facility] Comment on above: Performed By: #### M GO, CHM7, IPB, CKB, TRIG, LDO #### [facility] (DEFAULT) [address] [place] [address] 68195 HCO3 (Bld) [Moles/Vol] 27 mmol/L Normal 22-29 [facility] Comment on above: Performed By: #### M GO, CHM7, IPB, CKB, TRIG, LDO #### [facility] (DEFAULT) [address] [place] [address] 27600 Oxygen saturation in Blood 85 % High 70-80 [facility] Comment on above: Performed By: #### M GO, CHM7, IPB, CKB, TRIG, LDO #### [facility] (DEFAULT) [address] [place] [address] 07798 pCO2, Venous 41 mm Hg Normal 36-52 [facility] Comment on above: Performed By: #### M GO, CHM7, IPB, CKB, TRIG, LDO #### [facility] (DEFAULT) [address] [place] [address] 52520 pH, Venous 7.42 Normal 7.32-7.43 [facility] Comment on above: Performed By: #### M GO, CHM7, IPB, CKB, TRIG, LDO #### [facility] (DEFAULT) [address] [place] [address] 70857 pO2, Venous 51 mm Hg Normal [facility] Comment on above: Result Comment: Veno us pO2 is not recommended for the evaluation of oxygen status, clinical correlation is recommended. Performed By: #### M GO, CHM7, IPB, CKB, TRIG, LDO #### [facility] (DEFAULT) [address] [place] [address] 75951 Specimen type Nom (Spec) Venous Normal [facility] Comment on above: Performed By: #### M GO, CHM7, IPB, CKB, TRIG, LDO #### [facility] (DEFAULT) [address] [place] [address] 90606 VITAMIN B12on 05-09-2024 Cobalamin (Vitamin B12) [Mass/Vol] 1322 pg/mL High 211-911 [facility] Comment on above: Result Comment: Test ing of Methylmalonic Acid and Intrinsic Factor Blocking Antibody are recommended if clinical suspicion for pernicious anemia due to B12 deficiency is high for patients with intermediate B12 levels (211 to 400 pg/mL) to rule out spurious heterophile antibodies. Performed By: #### M GO, CHM7, IPB, CKB, TRIG, LDO #### [facility] (DEFAULT) [address] [place] [address] 62348 C DIFFICILE TWO STEPon 05-08 C Difficile By Pcr Negative Normal Negative [facility] Comment on above: Order Comment: C. di [...] PCR. Performed By: #### M ROXY TELLO, STIVEN, MERONB, TRIG, LDO #### [facility] (DEFAULT) [address] [place] [address] CBC,PLATELETSon 05-08-2024 Erythrocyte distribution width (RBC) [Ratio] 20.5 % High 10.8 - 14.9 % [facility] Hematocrit (Bld) [Volume fraction] 28.9 % Low 34.9 - 44.3 % [facility] Hemoglobin (Bld) [Mass/Vol] 8.8 g/dL Low 11.4 - 15.2 g/dL [facility] Interpretation and review of laboratory results Abnormal [facility] MCH (RBC) [Entitic mass] 30.1 pg 25.9 - 33.9 pg [facility] MCHC (RBC) [Mass/Vol] 30.4 g/dL Low 31.4 - 35.9 g/dL [facility] MCV (RBC) [Entitic vol] 99 fL High 79.6 - 97.7 fL [facility] Platelet mean volume (Bld) [Entitic vol] [facility] Platelets (Bld) [#/Vol] 77 10*3/uL Low 150 - 393 K/uL [facility] RBC (Bld) [#/Vol] 2.92 10*6/uL Low [facility] WBC (Bld) [#/Vol] 15.34 10*3/uL High 3.99 - 11.19 K/uL [facility] Hematocrit (Bld) [Volume fraction] 28.9 % Low 34.9-44.3 [facility] Comment on above: Performed By: #### ROXY ROA, STIVEN, CKB, TRIG, LDO #### [facility] (DEFAULT) [address] [place] [address] Hemoglobin (Bld) [Mass/Vol] 8.8 g/dL Low 11.4-15.2 [facility] Comment on above: Performed By: #### M GO, CHM7, IPB, CKB, TRIG, LDO #### [facility] (DEFAULT) [address] [place] [address] 47463 MCV (RBC) [Entitic vol] 99.0 fL High 79.6-97.7 [facility] Comment on above: Performed By: #### M GO, CHM7, IPB, CKB, TRIG, LDO #### [facility] (DEFAULT) [address] [place] [address] 40641 Mean Cell Hgb 30.1 pg Normal 25.9-33.9 [facility] Comment on above: Performed By: #### M GO, CHM7, IPB, CKB, TRIG, LDO #### [facility] (DEFAULT) [address] [place] [address] 94938 Mean Cell Hgb Conc 30.4 g/dL Low 31.4-35.9 [facility] Comment on above: Performed By: #### M GO, CHM7, IPB, CKB, TRIG, LDO #### [facility] (DEFAULT) [address] [place] [address] 05605 Mean Platelet Volume Normal [facility] Comment on above: Result Comment: Not measured Performed By: #### M GO, CHM7, IPB, CKB, TRIG, LDO #### [facility] (DEFAULT) [address] [place] [address] 85374 Platelets (Bld) [#/Vol] 77 10*3/uL Low 150-393 [facility] Comment on above: Performed By: #### M GO, CHM7, IPB, CKB, TRIG, LDO #### [facility] (DEFAULT) [address] [place] [address] 54312 RBC (Bld) [#/Vol] 2.92 10*6/uL Low 3.91-5.04 [facility] Comment on above: Performed By: #### M GO, CHM7, IPB, CKB, TRIG, LDO #### [facility] (DEFAULT) [address] [place] [address] RBC Distribution 20.5 % High 10.8-14.9 [facility] Comment on above: Performed By: #### M GO, CHM7, IPB, CKB, TRIG, LDO #### [facility] (DEFAULT) [address] [place] [address] WBC (Bld) [#/Vol] 15.34 10*3/uL High 3.99-11.19 [facility] Comment on above: Performed By: #### M GO, CHM7, IPB, CKB, TRIG, LDO #### [facility] (DEFAULT) [address] [place] [address] 12249 CHEM 7 (LYTES,BUN,CREA,GLUC) on 05-08-2024 Anion gap [Moles/Vol] 16 mmol/L 7 - 17 mmol/L [facility] Chloride [Moles/Vol] 106 mmol/L 98 - 10 8 mmol/L [facility] CO2 [Moles/Vol] 22 mmol/L 21 - 31 mmol/L [facility] Creatinine [Mass/Vol] 2.34 mg/dL High 0.50 - 1.20 mg/dL [facility] eGFR, CKD-EPI, Female 20 Low - PINF [facility] Glucose [Mass/Vol] 109 mg/dL High 70 - 99 mg/dL [facility] Interpretation and review of laboratory results Abnormal [facility] Osmolality Calc [Osmolality] 299 [facility] Potassium [Moles/Vol] 4 mmol/L 3.5 - 5.0 mmol/L [facility] Sodium [Moles/Vol] 140 mmol/L 135 - 145 mmol/L [facility] Urea nitrogen [Mass/Vol] 28 mg/dL High 7 - 25 mg/dL [facility] Urea nitrogen/Creatinine [Mass ratio] 12 mg/mg [facility] Anion gap [Moles/Vol] 16 mmol/L Normal 7-17 [facility] Comment on above: Performed By: #### M GO, CHM7, IPB, CKB, TRIG, LDO #### [facility] (DEFAULT) [address] [place] [address] 13510 Chloride [Moles/Vol] 106 mmol/L Normal 98-108 [facility] Comment on above: Performed By: #### M GO, CHM7, IPB, CKB, TRIG, LDO #### [facility] (DEFAULT) [address] [place] [address] 34856 CO2 [Moles/Vol] 22 mmol/L Normal 21-31 [facility] Comment on above: Performed By: #### M GO, CHM7, IPB, CKB, TRIG, LDO #### [facility] (DEFAULT) [address] [place] [address] 04216 Creatinine [Mass/Vol] 2.34 mg/dL High 0.50-1.20 [facility] Comment on above: Performed By: #### M GO, CHM7, IPB, CKB, TRIG, LDO #### [facility] (DEFAULT) [address] [place] [address] 83643 GFR/1.73 sq M.predicted among non-blacks MDRD (S/P/Bld) [Vol rate/Area] 20 mL/min/{1.73_m2} Low >=60 [facility] Comment on above: Result Comment: Repo rted eGFR is based on the CKD-EPI 2020 equation using creatinine, age, and sex. Performed By: #### M GO, CHM7, IPB, CKB, TRIG, LDO #### [facility] (DEFAULT) [address] [place] [address] 82797 Glucose [Mass/Vol] 109 mg/dL High 70-99 [facility] Comment on above: Performed By: #### M GO, CHM7, IPB, CKB, TRIG, LDO #### [facility] (DEFAULT) [address] [place] [address] 08545 Osmolality [Osmolality] 299 mosm/kg Normal 278-305 [facility] Comment on above: Performed By: #### M GO, CHM7, IPB, CKB, TRIG, LDO #### [facility] (DEFAULT) [address] [place] [address] 12745 Potassium [Moles/Vol] 4.0 mmol/L Normal 3.5-5.0 [facility] Comment on above: Performed By: #### M GO, CHM7, IPB, CKB, TRIG, LDO #### [facility] (DEFAULT) [address] [place] [address] 32971 Sodium [Moles/Vol] 140 mmol/L Normal 135-145 [facility] Comment on above: Performed By: #### M GO, CHM7, IPB, CKB, TRIG, LDO #### [facility] (DEFAULT) [address] [place] [address] 05889 Urea nitrogen [Mass/Vol] 28 mg/dL High 7-25 [facility] Comment on above: Performed By: #### M GO, CHM7, IPB, CKB, TRIG, LDO #### [facility] (DEFAULT) [address] [place] [address] 86086 Urea nitrogen/Creatinine [Mass ratio] 12 mg/mg Normal [facility] Comment on above: Performed By: #### M GO, CHM7, IPB, CKB, TRIG, LDO #### [facility] (DEFAULT) [address] [place] [address] 43985 GLUCOSE POCon 05-08-2024 Glucose [Mass/Vol] 76 mg/dL 70 - 99 mg/dL [facility] Glucose [Mass/Vol] 83 mg/dL 70 - 99 mg/dL [facility] Glucose [Mass/Vol] 102 mg/dL High 70 - 99 mg/dL [facility] Glucose [Mass/Vol] 109 mg/dL High 70 - 99 mg/dL [facility] Glucose [Mass/Vol] 107 mg/dL High 70 - 99 mg/dL [facility] Glucose [Mass/Vol] 113 mg/dL High 70 - 99 mg/dL [facility] Glucose [Mass/Vol] 92 mg/dL 70 - 99 mg/dL [facility] Glucose [Mass/Vol] 104 mg/dL High 70 - 99 mg/dL [facility] Glucose [Mass/Vol] 86 mg/dL 70 - 99 mg/dL [facility] Glucose [Mass/Vol] 91 mg/dL 70 - 99 mg/dL [facility] Glucose [Mass/Vol] 103 mg/dL High 70 - 99 mg/dL [facility] Glucose [Mass/Vol] 89 mg/dL 70 - 99 mg/dL [facility] Glucose [Mass/Vol] 109 mg/dL High 70 - 99 mg/dL [facility] Interpretation and review of laboratory results Abnormal [facility] POC Sample Type CAPBL [facility] IONIZED CALCIUM, WHOLE BLOOD Ordered By: Hakeem Butcher on 05-08-2024 Calcium.ionized (Bld) [Moles/Vol] 3.7 mg/dL Low 4.60 - 5.30 mg/dL [facility] Interpretation and review of laboratory results Abnormal [facility] IONIZED CALCIUM, WHOLE BLOOD on 05-08-2024 ICA 3.70 mg/dL Low 4.60-5.30 [facility] Comment on above: Order Comment: If io nized calcium is less than or equal to 3.0 mg/dL, recheck ionized calcium 2 hours after replacement. Performed By: #### M OMER, CHM7, IPB, CKB, TRIG, LDO #### [facility] (DEFAULT) [address] [place] [address] LOWER RESPIRATORY CULTURE, B ACTERIALon 05-08-2024 Bacteria identified Cx Nom (Unsp spec) Normal [facility] Comment on above: Result Comment: Grow th 4471 Light Growth Common oropharyngeal microbes Performed By: #### M OMER, CHM7, IPB, CKB, TRIG, LDO #### [facility] (DEFAULT) [address] [place] [address] 85667 Microscopic observation Gram stain Nom (Unsp spec) Normal [facility] Comment on above: Result Comment: Neut rophils, Heavy Contaminating bacteria and epithelials present Specimen is of optimum quality Performed By: #### M GO, CHM7, IPB, CKB, TRIG, LDO #### [facility] (DEFAULT) [address] [place] [address] 76694 MAGNESIUMon 05-08-2024 Magnesium [Mass/Vol] 2.3 mg/dL 1.6 - 2 .6 mg/dL [facility] Magnesium [Mass/Vol] 2.3 mg/dL Normal 1.6-2.6 [facility] Comment on above: Performed By: #### G ASVL #### [facility] (DEFAULT) [address] [place] [address] 16335 No Panel Informationon 05-08 Interpretation and review of laboratory results Abnormal [facility] POC Sample Type [facility] POC Sample Type VENO [facility] Interpretation and review of laboratory results Abnormal [facility] POC Sample Type [facility] Interpretation and review of laboratory results Normal [facility] PHOSPHATE, INORGANICon 05-08 Interpretation and review of laboratory results Normal [facility] Phosphate [Mass/Vol] 3.3 mg/dL 2.2 - 4 .6 mg/dL [facility] Phosphorous 3.3 mg/dL Normal 2.2-4.6 [facility] Comment on above: Order Comment: If ph osphate level is less than or equal to 2.0 mg/dL, recheck phosphate 6 hours after replacement. Performed By: #### M GO, CHM7, IPB, CKB, TRIG, LDO #### [facility] (DEFAULT) [address] [place] [address] Phosphate [Mass/Vol] 3.6 mg/dL 2.2 - 4 .6 mg/dL [facility] Phosphorous 3.6 mg/dL Normal 2.2-4.6 [facility] Comment on above: Performed By: #### M OMER, CHM7, IPB, CKB, TRIG, LDO #### [facility] (DEFAULT) [address] [place] [address] 80860 POTASSIUMon 05-08-2024 Interpretation and review of laboratory results Normal [facility] Potassium [Moles/Vol] 3.9 mmol/L 3.5 - 5.0 mmol/L [facility] Potassium [Moles/Vol] 3.9 mmol/L Normal 3.5-5.0 [facility] Comment on above: Order Comment: If po tassium level is less than or equal to 3.0 mmol/L, recheck potassium 4 hours after replacement. Performed By: #### M GO, CHM7, IPB, CKB, TRIG, LDO #### [facility] (DEFAULT) [address] [place] [address] 58682 Portable XR Chest Viewson RADIOLOGY RADIOLOGY [facility] Radiology Study observation (narrative) [facility] URINALYSIS REFLEX TO CULTURE PERFORMABLEon 05-08-2024 Appearance (U) Clear Clear [facility] Bacteria LM Ql (Urine sed) ABSENT ABSENT [facility] Color (U) Yellow Yellow [facility] Epithelial cells.squamous LM Ql (Urine sed) 0-2/hpf 0-2/hpf, 3-5/hpf = 1+ [facility] Glucose Test strip (U) [Mass/Vol] Negative Negative [facility] Interpretation and review of laboratory results Abnormal [facility] Ketones (U) [Mass/Vol] Negative Negative [facility] Leukocyte esterase Test strip Ql (U) Trace Abnormal Negative [facility] Nitrite Ql (U) Negative Negative [facility] pH (U) 5.0 [pH] 5.0 - 7.0 [facility] Protein (U) [Mass/Vol] 30 mg/dL Abnormal Negative [facility] RBC (U) [#/Vol] Moderate Abnormal Negative [facility] RBC LM.HPF (Urine sed) [#/Area] /[HPF] Abnormal [facility] Specific gravity (U) [Rel density] 1.008 1.001 - 1.035 [facility] Urobilinogen (U) [Mass/Vol] 0.2 E.U./dL 0.2 E.U/dL, 1.0 E.U/dL [facility] WBC LM.HPF (Urine sed) [#/Area] 0 - 5 [facility] Appearance (U) Clear Normal Clear [facility] Comment on above: Order Comment: For i ndwelling catheters, specimen collection is acceptable on catheter day 1 and 2 only. ? Performed By: #### M GO, CHM7, IPB, CKB, TRIG, LDO #### [facility] (DEFAULT) [address] [place] [address] 15129 Bacteria ABSENT Normal ABSENT [facility] Comment on above: Order Comment: For i ndwelling catheters, specimen collection is acceptable on catheter day 1 and 2 only. ? Performed By: #### M GO, CHM7, IPB, CKB, TRIG, LDO #### [facility] (DEFAULT) [address] [place] [address] 44639 Blood Urine Moderate Abnormal Negative [facility] Comment on above: Order Comment: For i ndwelling catheters, specimen collection is acceptable on catheter day 1 and 2 only. ? Performed By: #### M GO, CHM7, IPB, CKB, TRIG, LDO #### [facility] (DEFAULT) [address] [place] [address] 93763 Color (U) Yellow Normal Yellow [facility] Comment on above: Order Comment: For i ndwelling catheters, specimen collection is acceptable on catheter day 1 and 2 only. ? Performed By: #### M GO, CHM7, IPB, CKB, TRIG, LDO #### [facility] (DEFAULT) [address] [place] [address] 59082 Glucose Ql (U) Negative Normal Negative [facility] Comment on above: Order Comment: For i ndwelling catheters, specimen collection is acceptable on catheter day 1 and 2 only. ? Performed By: #### M GO, CHM7, IPB, CKB, TRIG, LDO #### [facility] (DEFAULT) [address] [place] [address] 65766 Ketones Ql (U) Negative Normal Negative [facility] Comment on above: Order Comment: For i ndwelling catheters, specimen collection is acceptable on catheter day 1 and 2 only. ? Performed By: #### M GO, CHM7, IPB, CKB, TRIG, LDO #### [facility] (DEFAULT) [address] [place] [address] 06697 Leukocyte esterase Test strip Ql (U) Trace Abnormal Negative [facility] Comment on above: Order Comment: For i ndwelling catheters, specimen collection is acceptable on catheter day 1 and 2 only. ? Performed By: #### M GO, CHM7, IPB, CKB, TRIG, LDO #### [facility] (DEFAULT) [address] [place] [address] 73667 Nitrites Urine Negative Normal Negative [facility] Comment on above: Order Comment: For i ndwelling catheters, specimen collection is acceptable on catheter day 1 and 2 only. ? Performed By: #### M GO, CHM7, IPB, CKB, TRIG, LDO #### [facility] (DEFAULT) [address] [place] [address] 76379 pH (U) 5.0 [pH] Normal 5.0-7.0 [facility] Comment on above: Order Comment: For i ndwelling catheters, specimen collection is acceptable on catheter day 1 and 2 only. ? Performed By: #### M GO, CHM7, IPB, CKB, TRIG, LDO #### [facility] (DEFAULT) [address] [place] [address] 96309 Protein Urine 30 mg/dL Abnormal Negative [facility] Comment on above: Order Comment: For i ndwelling catheters, specimen collection is acceptable on catheter day 1 and 2 only. ? Performed By: #### M GO, CHM7, IPB, CKB, TRIG, LDO #### [facility] (DEFAULT) [address] [place] [address] 01929 RBC LM.HPF (Urine sed) [#/Area] /[HPF] Abnormal 0-2 [facility] Comment on above: Order Comment: For i ndwelling catheters, specimen collection is acceptable on catheter day 1 and 2 only. ? Performed By: #### M GO, CHM7, IPB, CKB, TRIG, LDO #### [facility] (DEFAULT) [address] [place] [address] 65025 Specific [place] Urine 1.008 Normal 1.001 -1.03 5 [facility] Comment on above: Order Comment: For i ndwelling catheters, specimen collection is acceptable on catheter day 1 and 2 only. ? Performed By: #### M GO, CHM7, IPB, CKB, TRIG, LDO #### [facility] (DEFAULT) [address] [place] [address] 53200 Squamous/Epithelial Cells 0-2/hpf Normal 0-2/hpf, 3-5/hpf = 1+ [facility] Comment on above: Order Comment: For i ndwelling catheters, specimen collection is acceptable on catheter day 1 and 2 only. ? Performed By: #### M GO, CHM7, IPB, CKB, TRIG, LDO #### [facility] (DEFAULT) [address] [place] [address] 74900 Urobilinogen Urine 0.2 E.U./dL Normal 0.2 E.U/dL, 1.0 E.U/dL [facility] Comment on above: Order Comment: For i ndwelling catheters, specimen collection is acceptable on catheter day 1 and 2 only. ? Performed By: #### M GO, CHM7, IPB, CKB, TRIG, LDO #### [facility] (DEFAULT) [address] [place] [address] 10690 WBC Urine 0 - 5 Normal 0 - 5 [facility] Comment on above: Order Comment: For i ndwelling catheters, specimen collection is acceptable on catheter day 1 and 2 only. ? Performed By: #### M GO, CHM7, IPB, CKB, TRIG, LDO #### [facility] (DEFAULT) [address] [place] [address] 24424 VENOUS BLOOD GASon 5 Base excess Calc (Bld) [Moles/Vol] -1.9000 mmol/L -3.0 - 3.0 mmol/L [facility] CO2 (Bld) [Partial pressure] 43 mm[Hg] [facility] HCO3 (Bld) [Moles/Vol] 24 mmol/L 22 - 29 mmol/L [facility] Oxygen (Bld) [Partial pressure] 40 mm[Hg] mm Hg [facility] Oxygen saturation in Blood 71 % 70 - 80 % [facility] pH (Bld) 7.35 [pH] 7.32 - 7.43 [facility] Specimen source Nom (Unsp spec) Venous [facility] Base Excess -1.9 mmol/L Normal -3.0-3.0 [facility] Comment on above: Performed By: #### M GO, CHM7, IPB, CKB, TRIG, LDO #### [facility] (DEFAULT) [address] [place] [address] 74871 HCO3 (Bld) [Moles/Vol] 24 mmol/L Normal 22-29 [facility] Comment on above: Performed By: #### M GO, CHM7, IPB, CKB, TRIG, LDO #### [facility] (DEFAULT) [address] [place] [address] 01342 Oxygen saturation in Blood 71 % Normal 70-80 [facility] Comment on above: Performed By: #### M GO, CHM7, IPB, CKB, TRIG, LDO #### [facility] (DEFAULT) [address] [place] [address] 42483 pCO2, Venous 43 mm Hg Normal 36-52 [facility] Comment on above: Performed By: #### M GO, CHM7, IPB, CKB, TRIG, LDO #### [facility] (DEFAULT) [address] [place] [address] 12107 pH, Venous 7.35 Normal 7.32-7.43 [facility] Comment on above: Performed By: #### M GO, CHM7, IPB, CKB, TRIG, LDO #### [facility] (DEFAULT) [address] [place] [address] 58363 pO2, Venous 40 mm Hg Normal [facility] Comment on above: Result Comment: Veno us pO2 is not recommended for the evaluation of oxygen status, clinical correlation is recommended. Performed By: #### M GO, CHM7, IPB, CKB, TRIG, LDO #### [facility] (DEFAULT) [address] [place] [address] 12178 Specimen type Nom (Spec) Venous Normal [facility] Comment on above: Performed By: #### M GO, CHM7, IPB, CKB, TRIG, LDO #### [facility] (DEFAULT) [address] [place] [address] 79196 XR CHEST 1 VIEW PORTABLEon 0 05-08-2024 XR CHEST 1 VIEW PORTABLE EXAM: XR CHEST 1 VIEW PORTABLE, 05/08/2024 09:25 AM COMPARISON: May 07, 2024 CLINICAL INDICATIONS: C/f new pneumonia given coughing, fever and increased oxygen requirement RELEVANT CLINICAL HISTORY: FINDINGS: (Adequate technique) The endotracheal tube is 2.7 cm above the lisa. NG tube terminates. The diaphragm, outside the [id number]. The left CVC is removed. Prosthetic right [...] seen with early edema or bronchitis. Normal [facility] Bacteria identified Cx Nom ( Body fld)Ordered By: Jacki Lopez on 05-07-2024 Bacteria identified Cx Nom (Unsp spec) NO GROWTH DAY 2 OF 2 [facility] Microscopic observation Other stain Nom (Unsp spec) Cytocentrifuge preparation [facility] Microscopic observation Other stain Nom (Unsp spec) Neutrophils, Light [facility] Microscopic observation Other stain Nom (Unsp spec) Mononuclear cells present [facility] Microscopic observation Other stain Nom (Unsp spec) Red Blood Cells Present [facility] Microscopic observation Other stain Nom (Unsp spec) No organisms [facility] Bacteria identified Respirat ory culture Nom (Unsp spec)Ordered By: Isadora Byrne on 05-07-2024 Bacteria identified Cx Nom (Unsp spec) Growth [facility] Bacteria identified Cx Nom (Unsp spec) Light Growth Common oropharyngeal microbes [facility] Microscopic observation Other stain Nom (Unsp spec) Neutrophils, Heavy [facility] Microscopic observation Other stain Nom (Unsp spec) Contaminating bacteria and epithelials present [facility] Microscopic observation Other stain Nom (Unsp spec) Specimen is of optimum quality [facility] CBC,PLATELETSon 05-07-2024 Erythrocyte distribution width (RBC) [Ratio] 18.5 % High 10.8 - 14.9 % [facility] Hematocrit (Bld) [Volume fraction] 24 % Low 34.9 - 44.3 % [facility] Hemoglobin (Bld) [Mass/Vol] 7.5 g/dL Low 11.4 - 15.2 g/dL [facility] Interpretation and review of laboratory results Abnormal [facility] MCH (RBC) [Entitic mass] 31.5 pg 25.9 - 33.9 pg [facility] MCHC (RBC) [Mass/Vol] 31.3 g/dL Low 31.4 - 35.9 g/dL [facility] MCV (RBC) [Entitic vol] 100.8 fL High 79.6 - 97.7 fL [facility] Platelet mean volume (Bld) [Entitic vol] 11.8 fL 8.5 - 12.2 fL [facility] Platelets (Bld) [#/Vol] 73 10*3/uL Low 150 - 393 K/uL [facility] RBC (Bld) [#/Vol] 2.38 10*6/uL Low [facility] WBC (Bld) [#/Vol] 16.89 10*3/uL High 3.99 - 11.19 K/uL [facility] Hematocrit (Bld) [Volume fraction] 24.0 % Low 34.9-44.3 [facility] Comment on above: Performed By: #### F CRAG #### [facility] (DEFAULT) [address] [address] Hemoglobin (Bld) [Mass/Vol] 7.5 g/dL Low 11.4-15.2 [facility] Comment on above: Performed By: #### F CRAG #### [facility] (DEFAULT) [address] [place] [address] MCV (RBC) [Entitic vol] 100.8 fL High 79.6-97.7 [facility] Comment on above: Performed By: #### F CRAG #### [facility] (DEFAULT) [address] [address] Mean Cell Hgb 31.5 pg Normal 25.9-33.9 [facility] Comment on above: Performed By: #### F CRAG #### [facility] (DEFAULT) [address] [place] [address] Mean Cell Hgb Conc 31.3 g/dL Low 31.4-35.9 [facility] Comment on above: Performed By: #### F CRAG #### [facility] (DEFAULT) [address] [place] [address] Platelet mean volume (Bld) [Entitic vol] 11.8 fL Normal 8.5-12.2 [facility] Comment on above: Performed By: #### F CRAG #### [facility] (DEFAULT) [address] [place] [address] Platelets (Bld) [#/Vol] 73 10*3/uL Low 150-393 [facility] Comment on above: Performed By: #### F CRAG #### [facility] (DEFAULT) [address] [place] [address] RBC (Bld) [#/Vol] 2.38 10*6/uL Low 3.91-5.04 [facility] Comment on above: Performed By: #### F CRAG #### [facility] (DEFAULT) [address] [place] [address] RBC Distribution 18.5 % High 10.8-14.9 [facility] Comment on above: Performed By: #### F CRAG #### [facility] (DEFAULT) [address] [place] [address] WBC (Bld) [#/Vol] 16.89 10*3/uL High 3.99-11.19 [facility] Comment on above: Performed By: #### F CRAG #### [facility] (DEFAULT) [address] [place] [address] Erythrocyte distribution width (RBC) [Ratio] 16.8 % High 10.8 - 14.9 % [facility] Hematocrit (Bld) [Volume fraction] 19.6 % Low 34.9 - 44.3 % [facility] Hemoglobin (Bld) [Mass/Vol] 5.8 g/dL Critically low 11.4 - 15.2 g/dL [facility] Interpretation and review of laboratory results Abnormal [facility] MCH (RBC) [Entitic mass] 31.7 pg 25.9 - 33.9 pg [facility] MCHC (RBC) [Mass/Vol] 29.6 g/dL Low 31.4 - 35.9 g/dL [facility] MCV (RBC) [Entitic vol] 107.1 fL High 79.6 - 97.7 fL [facility] Platelet mean volume (Bld) [Entitic vol] [facility] Platelets (Bld) [#/Vol] 60 10*3/uL Low 150 - 393 K/uL [facility] RBC (Bld) [#/Vol] 1.83 10*6/uL Low [facility] WBC (Bld) [#/Vol] 14.66 10*3/uL High 3.99 - 11.19 K/uL [facility] Hematocrit (Bld) [Volume fraction] 19.6 % Low 34.9-44.3 [facility] Comment on above: Performed By: #### M OMER, CHM7, IPB, CKB, TRIG, LDO #### [facility] (DEFAULT) [address] [address] Hemoglobin (Bld) [Mass/Vol] 5.8 g/dL Critically low 11.4-15.2 [facility] Comment on above: Result Comment: This result has been called to Beto Richard RN by bala on 05/07/2024 02:38:23, and has been read back. Performed By: #### M OMER, CHM7, IPB, CKB, TRIG, LDO #### [facility] (DEFAULT) [address] [address] MCV (RBC) [Entitic vol] 107.1 fL High 79.6-97.7 [facility] Comment on above: Performed By: #### M OMER, CHM7, IPB, CKB, TRIG, LDO #### [facility] (DEFAULT) [address] [place] [address] Mean Cell Hgb 31.7 pg Normal 25.9-33.9 [facility] Comment on above: Performed By: #### M GO, CHM7, IPB, CKB, TRIG, LDO #### [facility] (DEFAULT) [address] [place] [address] Mean Cell Hgb Conc 29.6 g/dL Low 31.4-35.9 [facility] Comment on above: Performed By: #### M GO, CHM7, IPB, CKB, TRIG, LDO #### [facility] (DEFAULT) [address] [place] [address] Mean Platelet Volume Normal [facility] Comment on above: Result Comment: Not measured Performed By: #### M GO, CHM7, IPB, CKB, TRIG, LDO #### [facility] (DEFAULT) [address] [place] [address] Platelets (Bld) [#/Vol] 60 10*3/uL Low 150-393 [facility] Comment on above: Performed By: #### M GO, CHM7, IPB, CKB, TRIG, LDO #### [facility] (DEFAULT) [address] [place] [address] RBC (Bld) [#/Vol] 1.83 10*6/uL Low 3.91-5.04 [facility] Comment on above: Performed By: #### M GO, CHM7, IPB, CKB, TRIG, LDO #### [facility] (DEFAULT) [address] [place] [address] RBC Distribution 16.8 % High 10.8-14.9 [facility] Comment on above: Performed By: #### M GO, CHM7, IPB, CKB, TRIG, LDO #### [facility] (DEFAULT) [address] [place] [address] WBC (Bld) [#/Vol] 14.66 10*3/uL High 3.99-11.19 [facility] Comment on above: Performed By: #### M GO, CHM7, IPB, CKB, TRIG, LDO #### [facility] (DEFAULT) [address] [place] [address] CHEM 7 (LYTES,BUN,CREA,GLUC) on 05-07-2024 Anion gap [Moles/Vol] 11 mmol/L 7 - 17 mmol/L [facility] Chloride [Moles/Vol] 106 mmol/L 98 - 10 8 mmol/L [facility] CO2 [Moles/Vol] 24 mmol/L 21 - 31 mmol/L [facility] Creatinine [Mass/Vol] 2.11 mg/dL High 0.50 - 1.20 mg/dL [facility] eGFR, CKD-EPI, Female 23 Low - PINF [facility] Glucose [Mass/Vol] 88 mg/dL 70 - 99 mg/dL [facility] Osmolality Calc [Osmolality] 290 [facility] Potassium [Moles/Vol] 3.6 mmol/L 3.5 - 5.0 mmol/L [facility] Sodium [Moles/Vol] 137 mmol/L 135 - 145 mmol/L [facility] Urea nitrogen [Mass/Vol] 24 mg/dL 7 - 25 mg/dL [facility] Urea nitrogen/Creatinine [Mass ratio] 11 mg/mg [facility] Anion gap [Moles/Vol] 11 mmol/L Normal 7-17 [facility] Comment on above: Performed By: #### M GO, CHM7, IPB, CKB, TRIG, LDO #### [facility] (DEFAULT) [address] [place] [address] Chloride [Moles/Vol] 106 mmol/L Normal 98-108 [facility] Comment on above: Performed By: #### M GO, CHM7, IPB, CKB, TRIG, LDO #### [facility] (DEFAULT) [address] [place] [address] CO2 [Moles/Vol] 24 mmol/L Normal 21-31 [facility] Comment on above: Performed By: #### M GO, CHM7, IPB, CKB, TRIG, LDO #### [facility] (DEFAULT) [address] [place] [address] Creatinine [Mass/Vol] 2.11 mg/dL High 0.50-1.20 [facility] Comment on above: Performed By: #### M GO, CHM7, IPB, CKB, TRIG, LDO #### [facility] (DEFAULT) [address] [place] [address] GFR/1.73 sq M.predicted among non-blacks MDRD (S/P/Bld) [Vol rate/Area] 23 mL/min/{1.73_m2} Low >=60 [facility] Comment on above: Result Comment: Repo rted eGFR is based on the CKD-EPI 2020 equation using creatinine, age, and sex. Performed By: #### M GO, CHM7, IPB, CKB, TRIG, LDO #### [facility] (DEFAULT) [address] [place] [address] Glucose [Mass/Vol] 88 mg/dL Normal 70-99 [facility] Comment on above: Performed By: #### M GO, CHM7, IPB, CKB, TRIG, LDO #### [facility] (DEFAULT) [address] [place] [address] Osmolality [Osmolality] 290 mosm/kg Normal 278-305 [facility] Comment on above: Performed By: #### M GO, CHM7, IPB, CKB, TRIG, LDO #### [facility] (DEFAULT) [address] [place] [address] Potassium [Moles/Vol] 3.6 mmol/L Normal 3.5-5.0 [facility] Comment on above: Performed By: #### M GO, CHM7, IPB, CKB, TRIG, LDO #### [facility] (DEFAULT) [address] [place] [address] Sodium [Moles/Vol] 137 mmol/L Normal 135-145 [facility] Comment on above: Performed By: #### M GO, CHM7, IPB, CKB, TRIG, LDO #### [facility] (DEFAULT) [address] [place] [address] Urea nitrogen [Mass/Vol] 24 mg/dL Normal 7-25 [facility] Comment on above: Performed By: #### M GO, CHM7, IPB, CKB, TRIG, LDO #### [facility] (DEFAULT) [address] [place] [address] Urea nitrogen/Creatinine [Mass ratio] 11 mg/mg Normal [facility] Comment on above: Performed By: #### M GO, CHM7, IPB, CKB, TRIG, LDO #### [facility] (DEFAULT) [address] [place] [address] CKon 05-07-2024 CK [Catalytic activity/Vol] 57 U/L 30 - 184 U/L [facility] CK [Catalytic activity/Vol] 57 U/L Normal 30-184 [facility] Comment on above: Order Comment: While on Propofol. Performed By: #### M GO, CHM7, IPB, CKB, TRIG, LDO #### [facility] (DEFAULT) [address] [place] [address] CONTINUOUS CARDIAC MONITORIN G STRIPOrdered By: Unassigned Pacs on 05-07-2024 [facility] Work Phone: FIBRINOGEN, CLOTTABLEon 02-0 Fibrinogen Coag (PPP) [Mass/Vol] 426 mg/dL High 220 - 410 mg/dL [facility] Interpretation and review of laboratory results Abnormal [facility] Fibrinogen-Clottable 426 mg/dL High 220-410 [facility] Comment on above: Order Comment: Fibr [...] caution. Performed By: #### G ASVL #### [facility] (DEFAULT) [address] [address] HAPTOGLOBINon 05-07-2024 Haptoglobin [Mass/Vol] 306 mg/dL High 44 - 215 mg/dL [facility] Interpretation and review of laboratory results Abnormal [facility] HEMOGLOBIN & HEMATOCRITon Hematocrit (Bld) [Volume fraction] 27.3 % Low 34.9 - 44.3 % [facility] Hemoglobin (Bld) [Mass/Vol] 8.5 g/dL Low 11.4 - 15.2 g/dL [facility] Interpretation and review of laboratory results Abnormal [facility] Hematocrit (Bld) [Volume fraction] 27.3 % Low 34.9-44.3 [facility] Comment on above: Performed By: #### M GO, CHM7, IPB, CKB, TRIG, LDO #### [facility] (DEFAULT) [address] [place] [address] Hemoglobin (Bld) [Mass/Vol] 8.5 g/dL Low 11.4-15.2 [facility] Comment on above: Performed By: #### M GO, CHM7, IPB, CKB, TRIG, LDO #### [facility] (DEFAULT) [address] [place] [address] Hematocrit (Bld) [Volume fraction] 20 % Low 34.9 - 44.3 % [facility] Hemoglobin (Bld) [Mass/Vol] 6.1 g/dL Critically low 11.4 - 15.2 g/dL [facility] Interpretation and review of laboratory results Abnormal [facility] Hematocrit (Bld) [Volume fraction] 20.0 % Low 34.9-44.3 [facility] Comment on above: Order Comment: Pleas e obtain one hour after completing pRBC infusion Performed By: #### M ROXY TELLO, IPB, CKB, TRIG, LDO #### [facility] (DEFAULT) [address] [place] [address] Hemoglobin (Bld) [Mass/Vol] 6.1 g/dL Critically low 11.4-15.2 [facility] Comment on above: Order Comment: Pleas e obtain one hour after completing pRBC infusion Result Comment: This result has been called to Beto Richard RN by bala on 05/07/2024 06:56:52, and has been read back. Performed By: #### ROXY ROA, IPB, CKB, TRIG, LDO #### [facility] (DEFAULT) [address] [place] [address] IONIZED CALCIUM, WHOLE BLOOD Ordered By: Truong Allen on 05-07-2024 Calcium.ionized (Bld) [Moles/Vol] 4.14 mg/dL Low 4.60 - 5.30 mg/dL [facility] Interpretation and review of laboratory results Abnormal [facility] IONIZED CALCIUM, WHOLE BLOOD on 05-07-2024 ICA 4.14 mg/dL Low 4.60-5.30 [facility] Comment on above: Order Comment: If io nized calcium is less than or equal to 3.0 mg/dL, recheck ionized calcium 2 hours after replacement. Performed By: #### G ASVL #### [facility] (DEFAULT) [address] [place] [address] ICA 4.32 mg/dL Low 4.60-5.30 [facility] Comment on above: Performed By: #### F DIONISIOG #### [facility] (DEFAULT) [address] [place] [address] IONIZED CALCIUM, WHOLE BLOOD Ordered By: Keyana Kumar on 05-07-2024 Calcium.ionized (Bld) [Moles/Vol] 4.32 mg/dL Low 4.60 - 5.30 mg/dL [facility] Interpretation and review of laboratory results Abnormal [facility] LACTATE DEHYDROGENASEon LDH Lactate to pyruvate reaction [Catalytic activity/Vol] 265 U/L High 100 - 190 U/L [facility] LD Total 265 U/L High 100-190 [facility] Comment on above: Performed By: #### M GO, CHM7, IPB, CKB, TRIG, LDO #### [facility] (DEFAULT) [address] [place] [address] MAGNESIUMon 05-07-2024 Magnesium [Mass/Vol] 1.7 mg/dL 1.6 - 2 .6 mg/dL [facility] Magnesium [Mass/Vol] 1.7 mg/dL Normal 1.6-2.6 [facility] Comment on above: Performed By: #### M GO, CHM7, IPB, CKB, TRIG, LDO #### [facility] (DEFAULT) [address] [place] [address] Magnesium [Mass/Vol] 1.8 mg/dL 1.6 - 2 .6 mg/dL [facility] Magnesium [Mass/Vol] 1.8 mg/dL Normal 1.6-2.6 [facility] Comment on above: Performed By: #### M GO, CHM7, IPB, CKB, TRIG, LDO #### [facility] (DEFAULT) [address] [place] [address] MR Brain WO and W contrast I Von 05-07-2024 RADIOLOGY RADIOLOGY [facility] MR Brain WO and W contrast I VOrdered By: Michael De León on 05-07-2024 [facility] Work Phone: MRI BRAIN WITH AND WITHOUT C Alek 05-07-2024 MRI BRAIN WITH AND WITHOUT CONTRAST [...] or potentially related to postictal changes. Normal [facility] No Panel Informationon 05-07 Interpretation and review of laboratory results Normal [facility] Interpretation and review of laboratory results Abnormal [facility] Interpretation and review of laboratory results Normal [facility] Interpretation and review of laboratory results Abnormal [facility] PHOSPHATE, INORGANICon 05-07 Interpretation and review of laboratory results Normal [facility] Phosphate [Mass/Vol] 3.6 mg/dL 2.2 - 4 .6 mg/dL [facility] Phosphorous 3.6 mg/dL Normal 2.2-4.6 [facility] Comment on above: Performed By: #### M GO, CHM7, IPB, CKB, TRIG, LDO #### [facility] (DEFAULT) [address] [place] [address] Phosphate [Mass/Vol] 3.7 mg/dL 2.2 - 4 .6 mg/dL [facility] Phosphorous 3.7 mg/dL Normal 2.2-4.6 [facility] Comment on above: Performed By: #### M GO, CHM7, IPB, CKB, TRIG, LDO #### [facility] (DEFAULT) [address] [place] [address] Phosphate [Mass/Vol] 3.2 mg/dL 2.2 - 4 .6 mg/dL [facility] Phosphorous 3.2 mg/dL Normal 2.2-4.6 [facility] Comment on above: Performed By: #### M GO, CHM7, IPB, CKB, TRIG, LDO #### [facility] (DEFAULT) [address] [place] [address] PLATELET COUNTon 05-07-2024 Platelet mean volume (Bld) [Entitic vol] [facility] Platelets (Bld) [#/Vol] 63 10*3/uL Low 150 - 393 K/uL [facility] Mean Platelet Volume Normal [facility] Comment on above: Result Comment: Not measured Performed By: #### M GO, CHM7, IPB, CKB, TRIG, LDO #### [facility] (DEFAULT) [address] [place] [address] Platelets (Bld) [#/Vol] 63 10*3/uL Low 150-393 [facility] Comment on above: Performed By: #### M ROXY TELLO, IPB, CKB, TRIG, LDO #### [facility] (DEFAULT) [address] [place] [address] POTASSIUMon 05-07-2024 Potassium [Moles/Vol] 3.9 mmol/L 3.5 - 5.0 mmol/L [facility] Potassium [Moles/Vol] 3.9 mmol/L Normal 3.5-5.0 [facility] Comment on above: Order Comment: If po tassium level is less than or equal to 3.0 mmol/L, recheck potassium 4 hours after replacement. Performed By: #### M CHEMO TELLO7, IPB, CKB, TRIG, LDO #### [facility] (DEFAULT) [address] [place] [address] PREPARE TO TRANSFUSE RED BLO OD CELLSon 05-07-2024 [facility] BLOOD COMPONENT TYPE Red Cells, Leukoreduced [facility] EXPIRATION DATE [facility] Product ABO/RH(D) ABPOS [facility] Product ABO/RH(D) NUMBER 8400 [facility] PRODUCT CODE [id number] [facility] UNIT NUMBER [id number] [facility] UNIT STATUS transfused [facility] ABO/RH(D) TYPE ABPOS [facility] BLOOD COMPONENT TYPE Red Cells, Leukoreduced [facility] EXPIRATION DATE [facility] Product ABO/RH(D) ABPOS [facility] Product ABO/RH(D) NUMBER 8400 [facility] PRODUCT CODE [id number] [facility] UNIT NUMBER [id number] [facility] PT,INR,PTTon 05-07-2024 aPTT Coag (PPP) [Time] 35.2 s High [facility] INR Coag (Bld) [Relative time] 1.2 {INR} High 0.9 - 1.1 [facility] Interpretation and review of laboratory results Abnormal [facility] PT Coag (PPP) [Time] 14.8 s High [facility] aPTT Coag (Bld) [Time] 35.2 s High 24.0-34.3 [facility] Comment on above: Performed By: #### G ASVL #### [facility] (DEFAULT) [address] [place] [address] INR Coag (PPP) [Relative time] 1.2 {INR} High 0.9-1.1 [facility] Comment on above: Performed By: #### G ASVL #### [facility] (DEFAULT) [address] [place] [address] PT Coag (PPP) [Time] 14.8 s High 11.9-14.2 [facility] Comment on above: Performed By: #### G ASVL #### [facility] (DEFAULT) [address] [place] [address] Portable XR Chest Viewson RADIOLOGY RADIOLOGY [facility] Radiology Study observation (narrative) [facility] Portable XR Chest ViewsOrder ed By: Josy Arrington on 05-07-2024 [facility] Work Phone: RETICULOCYTESon 05-07-2024 Reticulocytes (Bld) [#/Vol] 0.0735 10*3/uL [facility] Reticulocytes/100 RBC (Bld) 3.75 % High 0.74 - 2.54 % [facility] Retic Absolute 0.0735 M/uL Normal 0.0324-0.1 142 [facility] Comment on above: Performed By: #### M GO, CHM7, IPB, CKB, TRIG, LDO #### [facility] (DEFAULT) [address] [place] [address] Retic Count 3.75 % High 0.74-2.54 [facility] Comment on above: Performed By: #### M GO, CHM7, IPB, CKB, TRIG, LDO #### [facility] (DEFAULT) [address] [place] [address] SCHISTOCYTESon 05-07-2024 Schistocytes LM Ql (Bld) Slide reviewed, no schistocytes seen [facility] BKR SCHISTOCYTES PATH Slide reviewed, no schistocytes seen Normal [facility] Comment on above: Performed By: #### M GO, CHM7, IPB, CKB, TRIG, LDO #### [facility] (DEFAULT) [address] [place] [address] TRIGLYCERIDEon 05-07-2024 Triglyceride [Mass/Vol] 152 mg/dL High NINF - 150 mg/dL [facility] Triglyceride [Mass/Vol] 152 mg/dL High <150 [facility] Comment on above: Order Comment: While on Propofol. Result Comment: [<15 0 mg/dL: Desirable] [150-199 mg/dL: Borderline] [200-499 mg/dL: High] [>500 mg/dL: Very High] Performed By: #### M GO, CHM7, IPB, CKB, TRIG, LDO #### [facility] (DEFAULT) [address] [place] [address]24 XR ABDOMEN 1 VIEW PORTABLEon 05-07-2024 XR [...] ileus without residual dilated small bowel. Normal [facility] XR Abdomen Single viewon RADIOLOGY RADIOLOGY [facility] Radiology Study observation (narrative) [facility] XR Abdomen Single viewOrdere d By: Trever Prather on 05-07-2024 [facility] XR CHEST 1 VIEW PORTABLEon 0 05-07-2024 [...] pneumomediastinum or subcutaneous gas on radiograph. Normal [facility] ANTI XA HEPARIN (UNFRACTIONA EVANS)Ordered By: Alice Garvin on 05-06-2024 Heparin anti Xa Qn (Nonbiological fluid) Low [facility] Interpretation and review of laboratory results Abnormal [facility] ANTI XA HEPARIN (UNFRACTIONA EVANS)on 05-06-2024 Anti Xa Heparin (Unfractionated) <0.10 Low 0.30-0.70 [facility] Comment on above: Performed By: #### T YPEC #### [facility] (DEFAULT) [address] [place] [address] BASIC METABOLIC PANELon 04-08 Anion gap [Moles/Vol] 14 mmol/L 7 - 17 mmol/L [facility] Calcium [Mass/Vol] 7.4 mg/dL Low 8.6 - 10. 5 mg/dL [facility] Chloride [Moles/Vol] 104 mmol/L 98 - 10 8 mmol/L [facility] CO2 [Moles/Vol] 24 mmol/L 21 - 31 mmol/L [facility] Creatinine [Mass/Vol] 2.5 mg/dL High 0.50 - 1.20 mg/dL [facility] eGFR, CKD-EPI, Female 19 Low - PINF [facility] Glucose [Mass/Vol] 94 mg/dL 70 - 99 mg/dL [facility] Interpretation and review of laboratory results Abnormal [facility] Osmolality Calc [Osmolality] 294 [facility] Potassium [Moles/Vol] 4.1 mmol/L 3.5 - 5.0 mmol/L [facility] Sodium [Moles/Vol] 138 mmol/L 135 - 145 mmol/L [facility] Urea nitrogen [Mass/Vol] 28 mg/dL High 7 - 25 mg/dL [facility] Urea nitrogen/Creatinine [Mass ratio] 11 mg/mg [facility] [facility] Anion gap [Moles/Vol] 14 mmol/L Normal 7-17 [facility] Comment on above: Performed By: #### M OMER, CHM7, IPB, CKB, TRIG, LDO #### [facility] (DEFAULT) [address] [place] [address] 37080 Calcium [Mass/Vol] 7.4 mg/dL Low 8.6-10.5 [facility] Comment on above: Performed By: #### M GO, CHM7, IPB, CKB, TRIG, LDO #### [facility] (DEFAULT) [address] [place] [address] Chloride [Moles/Vol] 104 mmol/L Normal 98-108 [facility] Comment on above: Performed By: #### M GO, CHM7, IPB, CKB, TRIG, LDO #### [facility] (DEFAULT) [address] [place] [address] CO2 [Moles/Vol] 24 mmol/L Normal 21-31 [facility] Comment on above: Performed By: #### M GO, CHM7, IPB, CKB, TRIG, LDO #### [facility] (DEFAULT) [address] [place] [address] 08889 Creatinine [Mass/Vol] 2.50 mg/dL High 0.50-1.20 [facility] Comment on above: Performed By: #### M GO, CHM7, IPB, CKB, TRIG, LDO #### [facility] (DEFAULT) [address] [place] [address] 93883 GFR/1.73 sq M.predicted among non-blacks MDRD (S/P/Bld) [Vol rate/Area] 19 mL/min/{1.73_m2} Low >=60 [facility] Comment on above: Result Comment: Repo rted eGFR is based on the CKD-EPI 2020 equation using creatinine, age, and sex. Performed By: #### M GO, CHM7, IPB, CKB, TRIG, LDO #### [facility] (DEFAULT) [address] [place] [address] 86889 Glucose [Mass/Vol] 94 mg/dL Normal 70-99 [facility] Comment on above: Performed By: #### M GO, CHM7, IPB, CKB, TRIG, LDO #### [facility] (DEFAULT) [address] [place] [address] 92111 Osmolality [Osmolality] 294 mosm/kg Normal 278-305 [facility] Comment on above: Performed By: #### M GO, CHM7, IPB, CKB, TRIG, LDO #### [facility] (DEFAULT) [address] [place] [address] 87016 Potassium [Moles/Vol] 4.1 mmol/L Normal 3.5-5.0 [facility] Comment on above: Performed By: #### M GO, CHM7, IPB, CKB, TRIG, LDO #### [facility] (DEFAULT) [address] [place] [address] Sodium [Moles/Vol] 138 mmol/L Normal 135-145 [facility] Comment on above: Performed By: #### M GO, CHM7, IPB, CKB, TRIG, LDO #### [facility] (DEFAULT) [address] [place] [address] 28705 Urea nitrogen [Mass/Vol] 28 mg/dL High 7-25 [facility] Comment on above: Performed By: #### M GO, CHM7, IPB, CKB, TRIG, LDO #### [facility] (DEFAULT) [address] [place] [address] Urea nitrogen/Creatinine [Mass ratio] 11 mg/mg Normal [facility] Comment on above: Performed By: #### M GO, CHM7, IPB, CKB, TRIG, LDO #### [facility] (DEFAULT) [address] [place] [address] 45238 CBC W/Diff, Automatedon 04-08 PATH REV Reviewed Normal [facility] Comment on above: Result Comment: THE PERIPHERAL SMEAR SHOWS A NORMOCHROMIC NORMOCYTIC ANEMIA.PLATELETS ARE SLIGHTLY LOW IN NUMBER AND NORMAL IN FORM.THERE IS A LEUKOCYTOSIS WITH INCREASED NEUOTROPHILS. THIS ISOFTEN DUE TO A REACTIVE PROCESS.Mehdi Miller M.D. 05/06/24 AMENDED REPORT 05/06/24 1000 PATH REV previously reported as: Reviewed Performed By: #### L 501.5200, L100.0100, L501.2300, L500.2500 ####[facility] [address] [facility] [place], [address] CBC,PLATELETSOrdered By: All león Himrod on 05-06-2024 RBC (Bld) [#/Vol] 2.21 10*6/uL Low [facility] CBC,PLATELETSon 05-06-2024 Hematocrit (Bld) [Volume fraction] 22.9 % Low 34.9-44.3 [facility] Comment on above: Performed By: #### M GO, CHM7, IPB, CKB, TRIG, LDO #### [facility] (DEFAULT) [address] [place] [address] 40138 Hemoglobin (Bld) [Mass/Vol] 7.1 g/dL Low 11.4-15.2 [facility] Comment on above: Performed By: #### M GO, CHM7, IPB, CKB, TRIG, LDO #### [facility] (DEFAULT) [address] [place] [address] 25265 MCV (RBC) [Entitic vol] 103.6 fL High 79.6-97.7 [facility] Comment on above: Result Comment: Resu lts inconsistent with previous results Performed By: #### M GO, CHM7, IPB, CKB, TRIG, LDO #### [facility] (DEFAULT) [address] [place] [address] 69668 Mean Cell Hgb 32.1 pg Normal 25.9-33.9 [facility] Comment on above: Performed By: #### M GO, CHM7, IPB, CKB, TRIG, LDO #### [facility] (DEFAULT) [address] [place] [address] 97367 Mean Cell Hgb Conc 31.0 g/dL Low 31.4-35.9 [facility] Comment on above: Performed By: #### M GO, CHM7, IPB, CKB, TRIG, LDO #### [facility] (DEFAULT) [address] [place] [address] 70585 Mean Platelet Volume Normal [facility] Comment on above: Result Comment: Not measured Performed By: #### M GO, CHM7, IPB, CKB, TRIG, LDO #### [facility] (DEFAULT) [address] [place] [address] 45671 Platelets (Bld) [#/Vol] 90 10*3/uL Low 150-393 [facility] Comment on above: Result Comment: Plat elet clumps noted on smear. Reported instrument value is acceptable This is an appended report. These results have been appended to a previously preliminary verified report. Performed By: #### M GO, CHM7, IPB, CKB, TRIG, LDO #### [facility] (DEFAULT) [address] [place] [address] 43294 RBC (Bld) [#/Vol] 2.21 10*6/uL Low 3.91-5.04 [facility] Comment on above: Performed By: #### M GO, CHM7, IPB, CKB, TRIG, LDO #### [facility] (DEFAULT) [address] [place] [address] 62784 RBC Distribution 16.9 % High 10.8-14.9 [facility] Comment on above: Performed By: #### M GO, CHM7, IPB, CKB, TRIG, LDO #### [facility] (DEFAULT) [address] [place] [address] 73958 WBC (Bld) [#/Vol] 19.33 10*3/uL High 3.99-11.19 [facility] Comment on above: Performed By: #### M GO, CHM7, IPB, CKB, TRIG, LDO #### [facility] (DEFAULT) [address] [place] [address] 12706 CHEM 7 (LYTES,BUN,CREA,GLUC) on 05-06-2024 Anion gap [Moles/Vol] 13 mmol/L Normal 7-17 [facility] Comment on above: Performed By: #### M GO, CHM7, IPB, CKB, TRIG, LDO #### [facility] (DEFAULT) [address] [place] [address] 17453 Chloride [Moles/Vol] 107 mmol/L Normal 98-108 [facility] Comment on above: Performed By: #### M GO, CHM7, IPB, CKB, TRIG, LDO #### [facility] (DEFAULT) [address] [place] [address] 82392 CO2 [Moles/Vol] 21 mmol/L Normal 21-31 [facility] Comment on above: Performed By: #### M GO, CHM7, IPB, CKB, TRIG, LDO #### [facility] (DEFAULT) [address] [place] [address] 56183 Creatinine [Mass/Vol] 3.60 mg/dL High 0.50-1.20 [facility] Comment on above: Performed By: #### M GO, CHM7, IPB, CKB, TRIG, LDO #### [facility] (DEFAULT) [address] [place] [address] 39412 GFR/1.73 sq M.predicted among non-blacks MDRD (S/P/Bld) [Vol rate/Area] 12 mL/min/{1.73_m2} Low >=60 [facility] Comment on above: Result Comment: Repo rted eGFR is based on the CKD-EPI 2020 equation using creatinine, age, and sex. Performed By: #### M GO, CHM7, IPB, CKB, TRIG, LDO #### [facility] (DEFAULT) [address] [place] [address] 93119 Glucose [Mass/Vol] 90 mg/dL Normal 70-99 [facility] Comment on above: Performed By: #### M GO, CHM7, IPB, CKB, TRIG, LDO #### [facility] (DEFAULT) [address] [place] [address] 76222 Osmolality [Osmolality] 301 mosm/kg Normal 278-305 [facility] Comment on above: Performed By: #### M GO, CHM7, IPB, CKB, TRIG, LDO #### [facility] (DEFAULT) [address] [place] [address] 32249 Potassium [Moles/Vol] 4.1 mmol/L Normal 3.5-5.0 [facility] Comment on above: Performed By: #### M GO, CHM7, IPB, CKB, TRIG, LDO #### [facility] (DEFAULT) [address] [place] [address] 70214 Sodium [Moles/Vol] 137 mmol/L Normal 135-145 [facility] Comment on above: Performed By: #### M GO, CHM7, IPB, CKB, TRIG, LDO #### [facility] (DEFAULT) [address] [place] [address] 61241 Urea nitrogen [Mass/Vol] 52 mg/dL High 7-25 [facility] Comment on above: Performed By: #### M GO, CHM7, IPB, CKB, TRIG, LDO #### [facility] (DEFAULT) [address] [place] [address] 95346 Urea nitrogen/Creatinine [Mass ratio] 14 mg/mg Normal [facility] Comment on above: Performed By: #### M GO, CHM7, IPB, CKB, TRIG, LDO #### [facility] (DEFAULT) [address] [place] [address] 93600 CRYPTOCOCCUS, ANTIGEN CSFOrd ered By: Raheem Castorena on 05-06-2024 Cryptococcus sp Ag Ql (CSF) Negative Negative [facility] Interpretation and review of laboratory results Normal [facility] CSF DIFFERENTIALOrdered By: Ramon Kennedy on 05-06-2024 Basophils/100 WBC Manual cnt (CSF) 0 % [facility] Work Phone: Cells Counted Total (CSF) [#] 100 [facility] Work Phone: Eosinophils/100 WBC Manual cnt (CSF) 0 % [facility] Work Phone: Interpretation and review of laboratory results Abnormal [facility] Work Phone: Lymphocytes/100 WBC Manual cnt (CSF) 90 % High 40 - 80 % [facility] Work Phone: Monocytes+Macrophages/ 100 WBC (CSF) 6 % Low 15 - 45 % [facility] Work Phone: Neutrophils/100 WBC Manual cnt (CSF) 4 % NINF - 6 % [facility] Work Phone: Pathologist review Janes (Unsp spec) [Interp] Ramon Kennedy MD [facility] Work Phone: Pathology report comments [Interpretation] Narrative e6biqTIjFTHsnDHzBPsrXokwstY oYQLhwZAnD7KayuthBBogVZ7xMA 5wdBkpfPIzcOAiFPZvTzJfd0npo 384jFMth7nzAEJJJWgsOJTKOTy5 oRzeY03uo3E7IpwzX91heJNfSHN 1VMYjZIYcoEOwMANgUHR5GWKeuV YqR2sfSYSjDA7tsfhqMQztAEdvQ XBxnSH4LIBsnRXmF8DuMTTmVAic POKzsnk1JdDvZm6daNXjkWvjFUl wYXJkXHBsYWluXGZzMjBccHJvdG ElxMekSuzkgLE9GWrfBamlpR5qv YTLZMGQZxyEGdtvhsWqMY9SLGHD RqKZUN94XrI0EkY0OYkpzRsvCdm deeVmfTVlGgMczG1NleB1yiOpiR h9o7OljWDbhiixyuoaeFHyz0Typ j3oGEKte00eAVsyBFSgOBLkgoXf IEFjdXRlIGFuZCBjaHJvbmljIGl rPztaaO0ufW7qmLUrZFwiljAmny SwBI51EvRyW79duzBuXHBdr52re 4g1qGEhuhPiXKY9ZVgnJAMfCQUe hIi0fZOgVXQqR50zkKNlXGHcNef pUojonSW0QBftEodxpJ9hjXXVTE XXTlfZHxoysuNwQZ4TLPRHXS5Jg OGcWySxnOW9BX62YGVaKYMcoBNw JEypR558XCTkYRnjFAIbVtUbrMI oAVIszbMvvONqQMCcW53OSmSCMJ UJA85VFUSAVFVQR7ERH0vDMQSpC uGmlLA7SANzZjjzXzgrXEnuH71D NkKQUFMZA73WMBUDUTUSO5OJNMG GQBqGX7WQHE5YHCYTADISYK7NUX eFTsVWRVfQH5MFUE0DJKZYVJWVD Z1CJiRoMIpAO5DQH4fALJLiSXIO HUEMWKYeIfVDPG9oXMh2AXuqTCT jINruWav1rXRkH99yIPU1IcW7Ar LdiCQFEGFXBVyJWTAARy2FZAQNC XUHHT6VYwBqI7ASOD2OGk2IHSBU PPCGWE1WYCnXViIcU7RPDJ1JDk5 KUJMCTGUWAZ3PDzJnIDCWL0WKLl EWR4ylLATNGTJLJOAiKaRSGS7lX OZDXA9GZXCIWMAFQ55OZIUTHUWQ F3SXFI3= [facility] Work Phone: Tube number Nom (CSF) [ID] CSF TUBE 4 [facility] Work Phone: [facility] Work Phone: Culture, Blood (WB)on 2024 CUB LEFT UPPER ARM Blood cultures x2, from two different sites No growth in 5 days. Normal [facility] Comment on above: Performed By: #### M 200.1000, L500.4050, L100.0100, L300.3900, L503.6005 ####[facility] [address] [place], [address] FIBRINOGEN, CLOTTABLEon 04-08 Fibrinogen-Clottable 502 mg/dL High 220-410 [facility] Comment on above: Order Comment: Fibr [...] caution. Performed By: #### R ES #### [facility] (DEFAULT) [address] [place] [address] 30341 IONIZED CALCIUM, WHOLE BLOOD on 05-06-2024 ICA 4.02 mg/dL Low 4.60-5.30 [facility] Comment on above: Performed By: #### M OMER, CHM7, IPB, CKB, TRIG, LDO #### [facility] (DEFAULT) [address] [place] [address] 84009 MAGNESIUMon 05-06-2024 Magnesium [Mass/Vol] 1.9 mg/dL 1.6 - 2 .6 mg/dL [facility] Magnesium [Mass/Vol] 1.9 mg/dL Normal 1.6-2.6 [facility] Comment on above: Performed By: #### M OMER, CHM7, IPB, CKB, TRIG, LDO #### [facility] (DEFAULT) [address] [place] [address] 69084 Magnesium [Mass/Vol] 2.2 mg/dL Normal 1.6-2.6 [facility] Comment on above: Performed By: #### M OMER, CHM7, IPB, CKB, TRIG, LDO #### [facility] (DEFAULT) [address] [place] [address] 14612 MR Brain WO and W contrast I Von 05-06-2024 Radiology Study observation (narrative) [facility] MRI PLAIN FILM FOR NEURO EXA 05-06-2024 [...] MRI. Intrauterine contraceptive device in place. Normal [facility] RADIOLOGY RADIOLOGY [facility] Radiology Study observation (narrative) [facility] MRI PLAIN FILM FOR NEURO EXA MOrdered By: Earlene Wylie on 05-06-2024 [facility] Work Phone: No Panel Informationon 05-06 Interpretation and review of laboratory results Normal [facility] PHOSPHATE, INORGANICon 05-06 Phosphate [Mass/Vol] 4 mg/dL 2.2 - 4 .6 mg/dL [facility] Phosphorous 4.0 mg/dL Normal 2.2-4.6 [facility] Comment on above: Performed By: #### M OMER, CHM7, IPB, CKB, TRIG, LDO #### [facility] (DEFAULT) [address] [address] Phosphorous 5.2 mg/dL High 2.2-4.6 [facility] Comment on above: Performed By: #### M GO, CHM7, IPB, CKB, TRIG, LDO #### [facility] (DEFAULT) [address] [address] ARTERIAL BLOOD GASon 025 Base Excess -4.0 mmol/L Low -3.0-3.0 [facility] Comment on above: Order Comment: For O pti-Oxygen Performed By: #### M GO, CHM7, IPB, CKB, TRIG, LDO #### [facility] (DEFAULT) [address] [place] [address] 50061 FIO2 30 % Normal [facility] Comment on above: Order Comment: For O pti-Oxygen Result Comment: vent Performed By: #### M GO, CHM7, IPB, CKB, TRIG, LDO #### [facility] (DEFAULT) [address] [place] [address] 97332 HCO3 (Bld) [Moles/Vol] 20 mmol/L Low 22-28 [facility] Comment on above: Order Comment: For O pti-Oxygen Performed By: #### M GO, CHM7, IPB, CKB, TRIG, LDO #### [facility] (DEFAULT) [address] [place] [address] 39222 Oxygen saturation in Blood 98 % Normal 94-98 [facility] Comment on above: Order Comment: For O pti-Oxygen Performed By: #### M GO, CHM7, IPB, CKB, TRIG, LDO #### [facility] (DEFAULT) [address] [place] [address] 63538 pCO2 27 mm Hg Low 32-48 [facility] Comment on above: Order Comment: For O pti-Oxygen Performed By: #### M GO, CHM7, IPB, CKB, TRIG, LDO #### [facility] (DEFAULT) [address] [place] [address] 98318 PF Ratio 397 Normal [facility] Comment on above: Order Comment: For O pti-Oxygen Performed By: #### M GO, CHM7, IPB, CKB, TRIG, LDO #### [facility] (DEFAULT) [address] [place] [address] 62310 pH, Arterial 7.47 High 7.35-7.45 [facility] Comment on above: Order Comment: For O pti-Oxygen Performed By: #### M GO, CHM7, IPB, CKB, TRIG, LDO #### [facility] (DEFAULT) [address] [place] [address] 43052 pO2 119 mm Hg High 83-108 [facility] Comment on above: Order Comment: For O pti-Oxygen Performed By: #### M GO, CHM7, IPB, CKB, TRIG, LDO #### [facility] (DEFAULT) [address] [place] [address] 38761 Specimen type Nom (Spec) Arterial Normal [facility] Comment on above: Order Comment: For O pti-Oxygen Performed By: #### M GO, CHM7, IPB, CKB, TRIG, LDO #### [facility] (DEFAULT) [address] [place] [address] 84541 BLOOD CULTUREon 05-05-2024 Bacteria identified Cx Nom (Unsp spec) NO GROWTH DAY 5 OF 5 Normal [facility] Comment on above: Order Comment: 2 Bot tles (1 Set - consists of 1 Aerobic bottle and 1 Anaerobic bottle) -1st Peripheral DrawFor vacutainer method draw: Fill aerobic bottle first, then anaerobic Performed By: #### M GO, CHM7, IPB, CKB, TRIG, LDO #### [facility] (DEFAULT) [address] [place] [address] 53943 Bacteria identified Cx Nom (Unsp spec) NO GROWTH DAY 5 OF 5 Normal [facility] Comment on above: Order Comment: 2 Bot tles (1 Set - consists of 1 Aerobic bottle and 1 Anaerobic bottle) -1st Peripheral DrawFor vacutainer method draw: Fill aerobic bottle first, then anaerobic Performed By: #### M GO, CHM7, IPB, CKB, TRIG, LDO #### [facility] (DEFAULT) [address] [place] [address] 02965 BODY FLUID CULTURE AND DIREC T SMEARon 05-05-2024 Bacteria identified Cx Nom (Unsp spec) NO GROWTH DAY 2 OF 2 Normal [facility] Comment on above: Performed By: #### M GO, CHM7, IPB, CKB, TRIG, LDO #### [facility] (DEFAULT) [address] [place] [address] Microscopic observation Gram stain Nom (Unsp spec) Normal [facility] Comment on above: Result Comment: Cyto centrifuge preparation Neutrophils, Light Mononuclear cells present Red Blood Cells Present No organisms seen Final report, verified by Microbiology. Performed By: #### M GO, CHM7, IPB, CKB, TRIG, LDO #### [facility] (DEFAULT) [address] [place] [address] Basic Metabolic Profile (BMP )on 05-05-2024 BUN Normal 7-18 [facility] Comment on above: Result Comment: Canc elled via OM: Order cancelled - Patient discharged Performed By: #### L 500.2500, L100.0100 ####[facility] [address] [place], [address] BUN/CRE Normal 10-20 [facility] Comment on above: Result Comment: Canc elled via OM: Order cancelled - Patient discharged Performed By: #### L 500.2500, L100.0100 ####[facility] [address] [place], [address] CA,Total Normal 8.5-10.1 [facility] Comment on above: Result Comment: Canc elled via OM: Order cancelled - Patient discharged Performed By: #### L 500.2500, L100.0100 ####[facility] [address] [place], [address] CL Normal 98-107 [facility] Comment on above: Result Comment: Canc elled via OM: Order cancelled - Patient discharged Performed By: #### L 500.2500, L100.0100 ####[facility] [address] [place], [address] CO2 Normal 21.0-32.0 [facility] Comment on above: Result Comment: Canc elled via OM: Order cancelled - Patient discharged Performed By: #### L 500.2500, L100.0100 ####[facility] [address] [place], [address] CREAT,SERUM Normal 0.55-1.02 [facility] Comment on above: Result Comment: Canc elled via OM: Order cancelled - Patient discharged Performed By: #### L 500.2500, L100.0100 ####[facility] [address] [place], [address] EST GFR Normal >60 [facility] Comment on above: Result Comment: Canc elled via OM: Order cancelled - Patient discharged Performed By: #### L 500.2500, L100.0100 ####[facility] [address] [place], [address] EST GFR - AA Normal >60 [facility] Comment on above: Result Comment: Canc elled via OM: Order cancelled - Patient discharged Performed By: #### L 500.2500, L100.0100 ####[facility] [address] [place], [address] GAP Normal 5-15 [facility] Comment on above: Result Comment: Canc elled via OM: Order cancelled - Patient discharged Performed By: #### L 500.2500, L100.0100 ####[facility] [address] [place], [address] GLU Normal 74-106 [facility] Comment on above: Result Comment: Canc elled via OM: Order cancelled - Patient discharged Performed By: #### L 500.2500, L100.0100 ####[facility] [address] [place], [address] Potassium Normal 3.5-5.1 [facility] Comment on above: Result Comment: Canc elled via OM: Order cancelled - Patient discharged Performed By: #### L 500.2500, L100.0100 ####[facility] [address] [place], [address] Basic Metabolic Profile (BMP) Normal 136-145 [facility] Comment on above: Result Comment: Canc elled via OM: Order cancelled - Patient discharged Performed By: #### L 500.2500, L100.0100 ####[facility] [address] [place], [address] CBC W/Diff, Automatedon 01-3 0-2024 Absolute Neut Normal 2.0-7.7 [facility] Comment on above: Result Comment: Canc elled via OM: Order cancelled - Patient discharged Performed By: #### L 500.2500, L100.0100 ####[facility] [address] [place], [address] HCT Normal 37-47 [facility] Comment on above: Result Comment: Canc elled via OM: Order cancelled - Patient discharged Performed By: #### L 500.2500, L100.0100 ####[facility] [address] [place], [address] HGB Normal 12.0-15.0 [facility] Comment on above: Result Comment: Canc elled via OM: Order cancelled - Patient discharged Performed By: #### L 500.2500, L100.0100 ####[facility] [address] [place], [address] MCH Normal 27.0-32.0 [facility] Comment on above: Result Comment: Canc elled via OM: Order cancelled - Patient discharged Performed By: #### L 500.2500, L100.0100 ####[facility] [address] [place], [address] MCHC Normal 32-36 [facility] Comment on above: Result Comment: Canc elled via OM: Order cancelled - Patient discharged Performed By: #### L 500.2500, L100.0100 ####[facility] [address] [place], [address] MCV Normal 81-99 [facility] Comment on above: Result Comment: Canc elled via OM: Order cancelled - Patient discharged Performed By: #### L 500.2500, L100.0100 ####[facility] [address] [place], [address] NEUT% Normal 47-70 [facility] Comment on above: Result Comment: Canc elled via OM: Order cancelled - Patient discharged Performed By: #### L 500.2500, L100.0100 ####[facility] [address] [place], [address] PLT Normal 150-450 [facility] Comment on above: Result Comment: Canc elled via OM: Order cancelled - Patient discharged Performed By: #### L 500.2500, L100.0100 ####[facility] [address] [place], [address] RBC Normal 4.2-5.4 [facility] Comment on above: Result Comment: Canc elled via OM: Order cancelled - Patient discharged Performed By: #### L 500.2500, L100.0100 ####[facility] [address] [place], [address] RDW CV Normal 11.6-14.6 [facility] Comment on above: Result Comment: Canc elled via OM: Order cancelled - Patient discharged Performed By: #### L 500.2500, L100.0100 ####[facility] [id number] [place], [address] RDW SD Normal 35.1-43.9 [facility] Comment on above: Result Comment: Canc elled via OM: Order cancelled - Patient discharged Performed By: #### L 500.2500, L100.0100 ####[facility] [id number] [place], [address] WBC Normal 4.4-11.0 [facility] Comment on above: Result Comment: Canc elled via OM: Order cancelled - Patient discharged Performed By: #### L 500.2500, L100.0100 ####[facility] [id number] [place], [address] CBC,PLATELETSon 05-05-2024 Hematocrit (Bld) [Volume fraction] 24.3 % Low 34.9-44.3 [facility] Comment on above: Performed By: #### M GO, CHM7, IPB, CKB, TRIG, LDO #### [facility] (DEFAULT) [address] [place] [address] Hemoglobin (Bld) [Mass/Vol] 7.9 g/dL Low 11.4-15.2 [facility] Comment on above: Performed By: #### M GO, CHM7, IPB, CKB, TRIG, LDO #### [facility] (DEFAULT) [address] [place] [address] 23726 MCV (RBC) [Entitic vol] 98.4 fL High 79.6-97.7 [facility] Comment on above: Performed By: #### M GO, CHM7, IPB, CKB, TRIG, LDO #### [facility] (DEFAULT) [address] [place] [address] 10533 Mean Cell Hgb 32.0 pg Normal 25.9-33.9 [facility] Comment on above: Performed By: #### M GO, CHM7, IPB, CKB, TRIG, LDO #### [facility] (DEFAULT) [address] [place] [address] 89797 Mean Cell Hgb Conc 32.5 g/dL Normal 31.4-35.9 [facility] Comment on above: Performed By: #### M GO, CHM7, IPB, CKB, TRIG, LDO #### [facility] (DEFAULT) [address] [place] [address] 46837 Platelet mean volume (Bld) [Entitic vol] 12.1 fL Normal 8.5-12.2 [facility] Comment on above: Performed By: #### M GO, CHM7, IPB, CKB, TRIG, LDO #### [facility] (DEFAULT) [address] [place] [address] 77049 Platelets (Bld) [#/Vol] 83 10*3/uL Low 150-393 [facility] Comment on above: Performed By: #### M GO, CHM7, IPB, CKB, TRIG, LDO #### [facility] (DEFAULT) [address] [place] [address] 13979 RBC (Bld) [#/Vol] 2.47 10*6/uL Low 3.91-5.04 [facility] Comment on above: Performed By: #### M GO, CHM7, IPB, CKB, TRIG, LDO #### [facility] (DEFAULT) [address] [place] [address] 44391 RBC Distribution 16.6 % High 10.8-14.9 [facility] Comment on above: Performed By: #### M GO, CHM7, IPB, CKB, TRIG, LDO #### [facility] (DEFAULT) [address] [place] [address] 16936 WBC (Bld) [#/Vol] 16.19 10*3/uL High 3.99-11.19 [facility] Comment on above: Performed By: #### M GO, CHM7, IPB, CKB, TRIG, LDO #### [facility] (DEFAULT) [address] [place] [address] 53384 CHEM 7 (LYTES,BUN,CREA,GLUC) on 05-05-2024 Anion gap [Moles/Vol] 13 mmol/L Normal 7-17 [facility] Comment on above: Performed By: #### M GO, CHM7, IPB, CKB, TRIG, LDO #### [facility] (DEFAULT) [address] [place] [address] 11580 Chloride [Moles/Vol] 105 mmol/L Normal 98-108 [facility] Comment on above: Performed By: #### M GO, CHM7, IPB, CKB, TRIG, LDO #### [facility] (DEFAULT) [address] [place] [address] 16692 CO2 [Moles/Vol] 22 mmol/L Normal 21-31 [facility] Comment on above: Performed By: #### M GO, CHM7, IPB, CKB, TRIG, LDO #### [facility] (DEFAULT) [address] [place] [address] 79506 Creatinine [Mass/Vol] 3.42 mg/dL High 0.50-1.20 [facility] Comment on above: Performed By: #### M GO, CHM7, IPB, CKB, TRIG, LDO #### [facility] (DEFAULT) [address] [place] [address] 80894 GFR/1.73 sq M.predicted among non-blacks MDRD (S/P/Bld) [Vol rate/Area] 13 mL/min/{1.73_m2} Low >=60 [facility] Comment on above: Result Comment: Repo rted eGFR is based on the CKD-EPI 2020 equation using creatinine, age, and sex. Performed By: #### M GO, CHM7, IPB, CKB, TRIG, LDO #### [facility] (DEFAULT) [address] [place] [address] 19227 Glucose [Mass/Vol] 88 mg/dL Normal 70-99 [facility] Comment on above: Performed By: #### M GO, CHM7, IPB, CKB, TRIG, LDO #### [facility] (DEFAULT) [address] [place] [address] 56293 Osmolality [Osmolality] 299 mosm/kg Normal 278-305 [facility] Comment on above: Performed By: #### M GO, CHM7, IPB, CKB, TRIG, LDO #### [facility] (DEFAULT) [address] [place] [address] 53176 Potassium [Moles/Vol] 4.3 mmol/L Normal 3.5-5.0 [facility] Comment on above: Performed By: #### M GO, CHM7, IPB, CKB, TRIG, LDO #### [facility] (DEFAULT) [address] [place] [address] 20470 Sodium [Moles/Vol] 136 mmol/L Normal 135-145 [facility] Comment on above: Performed By: #### M GO, CHM7, IPB, CKB, TRIG, LDO #### [facility] (DEFAULT) [address] [place] [address] 33602 Urea nitrogen [Mass/Vol] 51 mg/dL High 7-25 [facility] Comment on above: Performed By: #### M GO, CHM7, IPB, CKB, TRIG, LDO #### [facility] (DEFAULT) [address] [place] [address] 09774 Urea nitrogen/Creatinine [Mass ratio] 15 mg/mg Normal [facility] Comment on above: Performed By: #### M GO, CHM7, IPB, CKB, TRIG, LDO #### [facility] (DEFAULT) [address] [place] [address] 58261 Anion gap [Moles/Vol] 13 mmol/L Normal 7-17 [facility] Comment on above: Performed By: #### M GO, CHM7, IPB, CKB, TRIG, LDO #### [facility] (DEFAULT) [address] [place] [address] 86555 Chloride [Moles/Vol] 105 mmol/L Normal 98-108 [facility] Comment on above: Performed By: #### M GO, CHM7, IPB, CKB, TRIG, LDO #### [facility] (DEFAULT) [address] [place] [address] 06036 CO2 [Moles/Vol] 22 mmol/L Normal 21-31 [facility] Comment on above: Performed By: #### M GO, CHM7, IPB, CKB, TRIG, LDO #### [facility] (DEFAULT) [address] [place] [address] 48918 Creatinine [Mass/Vol] 3.49 mg/dL High 0.50-1.20 [facility] Comment on above: Performed By: #### M GO, CHM7, IPB, CKB, TRIG, LDO #### [facility] (DEFAULT) [address] [place] [address] 43666 GFR/1.73 sq M.predicted among non-blacks MDRD (S/P/Bld) [Vol rate/Area] 13 mL/min/{1.73_m2} Low >=60 [facility] Comment on above: Result Comment: Repo rted eGFR is based on the CKD-EPI 2020 equation using creatinine, age, and sex. Performed By: #### M GO, CHM7, IPB, CKB, TRIG, LDO #### [facility] (DEFAULT) [address] [place] [address] 76527 Glucose [Mass/Vol] 95 mg/dL Normal 70-99 [facility] Comment on above: Performed By: #### M GO, CHM7, IPB, CKB, TRIG, LDO #### [facility] (DEFAULT) [address] [place] [address] 10956 Osmolality [Osmolality] 299 mosm/kg Normal 278-305 [facility] Comment on above: Performed By: #### M GO, CHM7, IPB, CKB, TRIG, LDO #### [facility] (DEFAULT) [address] [place] [address] 27515 Potassium [Moles/Vol] 4.3 mmol/L Normal 3.5-5.0 [facility] Comment on above: Performed By: #### M GO, CHM7, IPB, CKB, TRIG, LDO #### [facility] (DEFAULT) [address] [place] [address] 26477 Sodium [Moles/Vol] 136 mmol/L Normal 135-145 [facility] Comment on above: Performed By: #### M GO, CHM7, IPB, CKB, TRIG, LDO #### [facility] (DEFAULT) [address] [place] [address] 61349 Urea nitrogen [Mass/Vol] 50 mg/dL High 7-25 [facility] Comment on above: Performed By: #### M GO, CHM7, IPB, CKB, TRIG, LDO #### [facility] (DEFAULT) [address] [place] [address] 88202 Urea nitrogen/Creatinine [Mass ratio] 14 mg/mg Normal [facility] Comment on above: Performed By: #### M GO, CHM7, IPB, CKB, TRIG, LDO #### [facility] (DEFAULT) [address] [place] [address] 54694 CKon 05-05-2024 CK [Catalytic activity/Vol] 224 U/L High 30-184 [facility] Comment on above: Order Comment: While on Propofol. Performed By: #### M GO, CHM7, IPB, CKB, TRIG, LDO #### [facility] (DEFAULT) [address] [place] [address] 42493 CRYPTOCOCCUS, ANTIGEN CSFon 05-05-2024 Cryptococcus Ag, CSF Negative Normal Negative [facility] Comment on above: Performed By: #### F CRAG #### [facility] (DEFAULT) [address] [place] [address] 09741 CSF DIFFERENTIALon 5 Basophils (Csf) 0 % Normal [facility] Comment on above: Result Comment: The reference range has not been established for this parameter for this fluid. Clinical correlation is recommended. Performed By: #### M GO, CHM7, IPB, CKB, TRIG, LDO #### [facility] (DEFAULT) [address] [place] [address] 33178 Cells Counted (CSF) 100 Normal [facility] Comment on above: Performed By: #### M GO, CHM7, IPB, CKB, TRIG, LDO #### [facility] (DEFAULT) [address] [place] [address] 55562 Comment (Csf) Normal [facility] Comment on above: Result Comment: No u nequivocal organisms seen. Blood is present. Acute and chronic inflammatory cells present. Correlation with gram stain and culture recommended. Performed By: #### M GO, CHM7, IPB, CKB, TRIG, LDO #### [facility] (DEFAULT) [address] [place] [address] 49450 Differential Reviewed By Ramon Kennedy MD [facility] Comment on above: Performed By: #### M GO, CHM7, IPB, CKB, TRIG, LDO #### [facility] (DEFAULT) [address] [place] [address] 97571 Eosinophils (Csf) 0 % Normal [facility] Comment on above: Result Comment: The reference range has not been established for this parameter for this fluid. Clinical correlation is recommended. Performed By: #### M GO, CHM7, IPB, CKB, TRIG, LDO #### [facility] (DEFAULT) [address] [place] [address] 73810 Lymphocytes (Csf) 90 % High 40-80 [facility] Comment on above: Performed By: #### M GO, CHM7, IPB, CKB, TRIG, LDO #### [facility] (DEFAULT) [address] [place] [address] 08153 Monocytes/Macrophages, CSF 6 % Low 15-45 [facility] Comment on above: Performed By: #### M GO, CHM7, IPB, CKB, TRIG, LDO #### [facility] (DEFAULT) [address] [place] [address] 98161 Neutrophils (Csf) 4 % Normal <=6 [facility] Comment on above: Performed By: #### M GO, CHM7, IPB, CKB, TRIG, LDO #### [facility] (DEFAULT) [address] [place] [address] 56959 CSF FLUID COUNT ONLYon 05-05 CSF Tube Number CSF TUBE 4 Normal [facility] Comment on above: Performed By: #### M GO, CHM7, IPB, CKB, TRIG, LDO #### [facility] (DEFAULT) [address] [place] [address] 15718 Gross Appearance (Csf) Normal [facility] Comment on above: Result Comment: Zuri Siddiqui Performed By: #### M GO, CHM7, IPB, CKB, TRIG, LDO #### [facility] (DEFAULT) [address] [place] [address] 39238 RBC (Bld) [#/Vol] 0.32314 10*6/uL High <3 [facility] Comment on above: Performed By: #### M GO, CHM7, IPB, CKB, TRIG, LDO #### [facility] (DEFAULT) [address] [place] [address] 25515 Supernatant (Csf) Not Indicated Normal [facility] Comment on above: Performed By: #### M GO, CHM7, IPB, CKB, TRIG, LDO #### [facility] (DEFAULT) [address] [place] [address] 16718 Total Nucleated Cells (TNC CSF) 7 /uL High <6 [facility] Comment on above: Performed By: #### M GO, CHM7, IPB, CKB, TRIG, LDO #### [facility] (DEFAULT) [address] [place] [address] HEAD WITHOUT CONTRASTon 0 05-05-2024 CT [...] noted. IMPRESSION: No acute cranial abnormality. Normal [facility] DIALYSIS HEP PANEL-CHRONICon 05-05-2024 Hep B Core Ab,Total (IgG+IgM) Negative Normal Negative [facility] Comment on above: Performed By: #### F CRAG #### [facility] (DEFAULT) [address] [place] [address] Hep B Surface Ab Negative Normal Negative [facility] Comment on above: Performed By: #### F CRAG #### [facility] (DEFAULT) [address] [address] Hepatitis C Antibody Negative Normal Negative [facility] Comment on above: Performed By: #### F CRAG #### [facility] (DEFAULT) [address] [address] ENCEPHALOPATHY, AUTOIMMUNE E VALUATION, CSFon 05-05-2024 AGNA-1,CSF Negative Normal Negative [facility] Comment on above: Result Comment: ADDITIONAL INFORMATION This test was developed and its performance characteristics determined by [facility] in a manner consistent with CLIA requirements. This test has not been cleared or approved by the [place]. Food and Drug Administration. Performed By: #### M GO, CHM7, IPB, CKB, TRIG, LDO #### [facility] (DEFAULT) [address] [place] [address] AMPA-R AB CBA, CSF Negative Normal Negative [facility] Comment on above: Result Comment: ADDITIONAL INFORMATION This test was developed and its performance characteristics determined by [facility] in a manner consistent with CLIA requirements. This test has not been cleared or approved by the [place].S. Food and Drug Administration. Performed By: #### Dede GO, CHM7, IPB, CKB, TRIG, LDO #### [facility] (DEFAULT) [address] [place] [address] AMPHIPHYSIN AB, CSF Negative Normal Negative [facility] Comment on above: Result Comment: ADDITIONAL INFORMATION This test was developed and its performance characteristics determined by [facility] in a manner consistent with CLIA requirements. This test has not been cleared or approved by the [place].S. Food and Drug Administration. Performed By: #### Dede GO, CHM7, IPB, CKB, TRIG, LDO #### [facility] (DEFAULT) [address] [place] [address] MAT-1, CSF Negative Normal Negative [facility] Comment on above: Result Comment: ADDITIONAL INFORMATION This test was developed and its performance characteristics determined by [facility] in a manner consistent with CLIA requirements. This test has not been cleared or approved by the [place].S. Food and Drug Administration. Performed By: #### Dede GO, CHM7, IPB, CKB, TRIG, LDO #### [facility] (DEFAULT) [address] [place] [address] MAT-2,CSF Negative Normal Negative [facility] Comment on above: Result Comment: ADDITIONAL INFORMATION This test was developed and its performance characteristics determined by [facility] in a manner consistent with CLIA requirements. This test has not been cleared or approved by the [place].S. Food and Drug Administration. Performed By: #### M GO, CHM7, IPB, CKB, TRIG, LDO #### [facility] (DEFAULT) [address] [place] [address] MAT-3,CSF Negative Normal Negative [facility] Comment on above: Result Comment: ADDITIONAL INFORMATION This test was developed and its performance characteristics determined by [facility] in a manner consistent with CLIA requirements. This test has not been cleared or approved by the [place].S. Food and Drug Administration. Performed By: #### M GO, CHM7, IPB, CKB, TRIG, LDO #### [facility] (DEFAULT) [address] [place] [address] CASPR2-IgG CBA, CSF Negative Normal Negative [facility] Comment on above: Result Comment: ADDITIONAL INFORMATION This test was developed and its performance characteristics determined by [facility] in a manner consistent with CLIA requirements. This test has not been cleared or approved by the U.S. Food and Drug Administration. Performed By: #### M GO, CHM7, IPB, CKB, TRIG, LDO #### [facility] (DEFAULT) [address] [place] [address] CRMP-5-IGG,CSF Negative Normal Negative [facility] Comment on above: Result Comment: ADDITIONAL INFORMATION This test was developed and its performance characteristics determined by [facility] in a manner consistent with CLIA requirements. This test has not been cleared or approved by the U.S. Food and Drug Administration. Performed By: #### M GO, CHM7, IPB, CKB, TRIG, LDO #### [facility] (DEFAULT) [address] [place] [address] 79548 DPPX AB CBA,CSF Negative Normal Negative [facility] Comment on above: Result Comment: ADDITIONAL INFORMATION This test was developed and its performance characteristics determined by [facility] in a manner consistent with CLIA requirements. This test has not been cleared or approved by the U.S. Food and Drug Administration. Performed By: #### M GO, CHM7, IPB, CKB, TRIG, LDO #### [facility] (DEFAULT) [address] [place] [address] 88133 Encephalopathy, Interpretation, CSF SEE COMMENTS Normal [facility] Comment on above: Result Comment: No i nformative autoantibodies were detected in this evaluation. However, a negative result does not exclude autoimmune encephalopathy, idiopathic or paraneoplastic. Sensitivity and specificity of antibody testing are enhanced by testing both serum and CSF. Performed By: #### M GO, CHM7, IPB, CKB, TRIG, LDO #### [facility] (DEFAULT) [address] [place] [address] 53201 ADRIENNE-B-R AB CBA, CSF Negative Normal Negative [facility] Comment on above: Result Comment: ADDITIONAL INFORMATION This test was developed and its performance characteristics determined by [facility] in a manner consistent with CLIA requirements. This test has not been cleared or approved by the U.S. Food and Drug Administration. Performed By: #### M GO, CHM7, IPB, CKB, TRIG, LDO #### [facility] (DEFAULT) [address] [place] [address] [id number] AB ASSAY, CSF 0.00 nmol/L Normal <= 0.02 [facility] Comment on above: Result Comment: ADDITIONAL INFORMATION This test was developed and its performance characteristics determined by [facility] in a manner consistent with CLIA requirements. This test has not been cleared or approved by the U.S. Food and Drug Administration. Performed By: #### Dede GO, CHM7, IPB, CKB, TRIG, LDO #### [facility] (DEFAULT) [address] [place] [address] GFAP IFA, CSF Negative Normal Negative [facility] Comment on above: Result Comment: ADDITIONAL INFORMATION This test was developed and its performance characteristics determined by [facility] in a manner consistent with CLIA requirements. This test has not been cleared or approved by the U.S. Food and Drug Administration. Performed By: #### Dede GO, CHM7, IPB, CKB, TRIG, LDO #### [facility] (DEFAULT) [address] [place] [address] IFA Notes None. Normal [facility] Comment on above: Performed By: #### Dede GO, CHM7, IPB, CKB, TRIG, LDO #### [facility] (DEFAULT) [address] [place] [address] IgLON5 CBA, CSF Negative Normal Negative [facility] Comment on above: Result Comment: ADDITIONAL INFORMATION This test was developed and its performance characteristics determined by [facility] in a manner consistent with CLIA requirements. This test has not been cleared or approved by the U.S. Food and Drug Administration. Performed By: #### M GO, CHM7, IPB, CKB, TRIG, LDO #### [facility] (DEFAULT) [address] [place] [address] LGI1-IgG,CBA,csf Negative Normal Negative [facility] Comment on above: Result Comment: ADDITIONAL INFORMATION This test was developed and its performance characteristics determined by [facility] in a manner consistent with CLIA requirements. This test has not been cleared or approved by the U.S. Food and Drug Administration. Performed By: #### M GO, CHM7, IPB, CKB, TRIG, LDO #### [facility] (DEFAULT) [address] [place] [address] MGLUR1 AB, IFA, CSF Negative Normal Negative [facility] Comment on above: Result Comment: ADDITIONAL INFORMATION This test was developed and its performance characteristics determined by [facility] in a manner consistent with CLIA requirements. This test has not been cleared or approved by the U.S. Food and Drug Administration. Performed By: ###Nyla Aguayo GO, CHM7, IPB, CKB, TRIG, LDO #### [facility] (DEFAULT) [address] [place] [address] Neurochondrin IFA, CSF Negative Normal Negative [facility] Comment on above: Result Comment: ADDITIONAL INFORMATION This test was developed and its performance characteristics determined by [facility] in a manner consistent with CLIA requirements. This test has not been cleared or approved by the U.S. Food and Drug Administration. Performed By: #### M GO, CHM7, IPB, CKB, TRIG, LDO #### [facility] (DEFAULT) [address] [place] [address] NIF IFA, CSF Negative Normal Negative [facility] Comment on above: Result Comment: ADDITIONAL INFORMATION This test was developed and its performance characteristics determined by [facility] in a manner consistent with CLIA requirements. This test has not been cleared or approved by the U.S. Food and Drug Administration. Performed By: #### M GO, CHM7, IPB, CKB, TRIG, LDO #### [facility] (DEFAULT) [address] [place] [address] NMDA-R AB CBA, CSF Negative Normal Negative [facility] Comment on above: Result Comment: ADDITIONAL INFORMATION This test was developed and its performance characteristics determined by [facility] in a manner consistent with CLIA requirements. This test has not been cleared or approved by the U.S. Food and Drug Administration. Performed By: #### M GO, CHM7, IPB, CKB, TRIG, LDO #### [facility] (DEFAULT) [address] [place] [address] [employer]-1,CSF Negative Normal Negative [facility] Comment on above: Result Comment: ADDITIONAL INFORMATION This test was developed and its performance characteristics determined by [facility] in a manner consistent with CLIA requirements. This test has not been cleared or approved by the U.S. Food and Drug Administration. Performed By: #### M GO, CHM7, IPB, CKB, TRIG, LDO #### [facility] (DEFAULT) [address] [place] [address] [employer]ANT-2,CSF Negative Normal Negative [facility] Comment on above: Result Comment: ADDITIONAL INFORMATION This test was developed and its performance characteristics determined by [facility] in a manner consistent with CLIA requirements. This test has not been cleared or approved by the U.S. Food and Drug Administration. Performed By: #### M GO, CHM7, IPB, CKB, TRIG, LDO #### [facility] (DEFAULT) [address] [place] [address] PROFESSIONAL EMPLOYER CONSULTANT-TR,CSF Negative Normal Negative [facility] Comment on above: Result Comment: ADDITIONAL INFORMATION This test was developed and its performance characteristics determined by [facility] in a manner consistent with CLIA requirements. This test has not been cleared or approved by the U.S. Food and Drug Administration. Performed By: #### M GO, CHM7, IPB, CKB, TRIG, LDO #### [facility] (DEFAULT) [address] [place] [id number] PDE10A AB IFA, CSF Negative Normal Negative [facility] Comment on above: Result Comment: ADDITIONAL INFORMATION This test was developed and its performance characteristics determined by [facility] in a manner consistent with CLIA requirements. This test has not been cleared or approved by the U.S. Food and Drug Administration. Performed By: #### M GO, CHM7, IPB, CKB, TRIG, LDO #### [facility] (DEFAULT) [address] [place] [address] Septin-7 IFA, CSF Negative Normal Negative [facility] Comment on above: Result Comment: ADDITIONAL INFORMATION This test was developed and its performance characteristics determined by [facility] in a manner consistent with CLIA requirements. This test has not been cleared or approved by the U.S. Food and Drug Administration. Performed By: #### M MOER, CHM7, IPB, CKB, TRIG, LDO #### [facility] (DEFAULT) [address] [address] Tripartite Motif-Containing Protein 46 IgG IFA, CSF Negative Normal Negative [facility] Comment on above: Result Comment: ADDITIONAL INFORMATION This test was developed and its performance characteristics determined by [facility] in a manner consistent with CLIA requirements. This test has not been cleared or approved by the U.S. Food and Drug Administration. Test Performed by: [place] [address] Environmental Property Assessor: Michael Pope Ph.D.; CLIA# [id number] Performed By: #### M OMER, CHM7, IPB, CKB, TRIG, LDO #### [facility] (DEFAULT) [address] [address] HAPTOGLOBINon 05-05-2024 Haptoglobin 306 mg/dL High 44-215 [facility] Comment on above: Performed By: #### F CRAG #### [facility] (DEFAULT) [address] [address] HEP B SURFACE AG-Nikolai 04-08 Hepatitis B Surface Ag-Stat Negative Normal Negative [facility] Comment on above: Performed By: #### F CRAG #### [facility] (DEFAULT) [address] [address] IONIZED CALCIUM, SERUMon ICA 4.62 mg/dL Normal 4.60-5.30 [facility] Comment on above: Performed By: #### F CRAG #### [facility] (DEFAULT) [address] [address] ICA 4.24 mg/dL Low 4.60-5.30 [facility] Comment on above: Performed By: #### F CRAG #### [facility] (DEFAULT) [address] [place] [address] LACTATE, CSFon 05-05-2024 Lactate, CSF 1.5 mmol/L Normal <2.8 [facility] Comment on above: Performed By: #### M GO, CHM7, IPB, CKB, TRIG, LDO #### [facility] (DEFAULT) [address] [place] [address] LOWER RESPIRATORY CULTURE, B ACTERIALon 05-05-2024 Bacteria identified Cx Nom (Unsp spec) Normal [facility] Comment on above: Result Comment: Grow 4470 Light Growth Common oropharyngeal microbes Performed By: #### R ES #### [facility] (DEFAULT) [address] [place] [address] Microscopic observation Gram stain Nom (Unsp spec) Normal [facility] Comment on above: Result Comment: Neut rophils, Heavy Contaminating bacteria and epithelials present Specimen is of optimum quality Performed By: #### R ES #### [facility] (DEFAULT) [address] [place] [address] MAGNESIUMon 05-05-2024 Magnesium [Mass/Vol] 2.2 mg/dL Normal 1.6-2.6 [facility] Comment on above: Performed By: #### M GO, CHM7, IPB, CKB, TRIG, LDO #### [facility] (DEFAULT) [address] [place] [address] Magnesium [Mass/Vol] 1.5 mg/dL Low 1.6-2.6 [facility] Comment on above: Performed By: #### M GO, CHM7, IPB, CKB, TRIG, LDO #### [facility] (DEFAULT) [address] [place] [address] Magnesium [Mass/Vol] 1.5 mg/dL Low 1.6-2.6 [facility] Comment on above: Performed By: #### M GO, CHM7, IPB, CKB, TRIG, LDO #### [facility] (DEFAULT) [address] [place], [place] [address] MENINGITIS/ENCEPHALITIS Regulo TRUJILLO 05-05-2024 CMV DNA Not detected Normal Not Detected [facility] Comment on above: Order Comment: A neg ative result does not exclude the possibility of DICTATING MACHINE TYPIST infection and should not be used as [...] CHM7, IPB, CKB, TRIG, LDO #### [facility] (DEFAULT) [address] [place] [address] Cryptococcus Luly/Neoformans DNA Not detected Normal Not Detected [facility] Comment on above: Order Comment: A neg ative result does not exclude the possibility of DICTATING MACHINE TYPIST infection and should not be used as [...] #### [facility] (DEFAULT) [address] [address] E. Coli K1 DNA Not detected Normal Not Detected [facility] Comment on above: Order Comment: A neg ative result does not exclude the possibility of DICTATING MACHINE TYPIST infection and should not be used as [...] CHM7, IPB, CKB, TRIG, LDO #### [facility] (DEFAULT) [address] [address] Enterovirus RNA Not detected Normal Not Detected [facility] Comment on above: Order Comment: A neg ative result does not exclude the possibility of DICTATING MACHINE TYPIST infection and should not be used as [...] CHM7, IPB, CKB, TRIG, LDO #### [facility] (DEFAULT) [address] [address] Haemophilus Influenza DNA Not detected Normal Not Detected [facility] Comment on above: Order Comment: A neg ative result does not exclude the possibility of DICTATING MACHINE TYPIST infection and should not be used as [...] CHM7, IPB, CKB, TRIG, LDO #### [facility] (DEFAULT) [address] [place] [address] Hhv-6 DNA Not detected Normal Not Detected [facility] Comment on above: Order Comment: A neg ative result does not exclude the possibility of DICTATING MACHINE TYPIST infection and should not be used as [...] CHM7, IPB, CKB, TRIG, LDO #### [facility] (DEFAULT) [address] [place] [address] Hsv-1 DNA Not detected Normal Not Detected [facility] Comment on above: Order Comment: A neg ative result does not exclude the possibility of DICTATING MACHINE TYPIST infection and should not be used as [...] OMER, CHM7, IPB, CKB, TRIG, LDO #### [facility] (DEFAULT) [address] [place] [address] Hsv-2 DNA Not detected Normal Not Detected [facility] Comment on above: Order Comment: A neg ative result does not exclude the possibility of DICTATING MACHINE TYPIST infection and should not be used as [...] OMER, CHM7, IPB, CKB, TRIG, LDO #### [facility] (DEFAULT) [address] [place] [address] Human Parechovirus RNA Not detected Normal Not Detected [facility] Comment on above: Order Comment: A neg ative result does not exclude the possibility of DICTATING MACHINE TYPIST infection and should not be used as [...] OMER, CHM7, IPB, CKB, TRIG, LDO #### [facility] (DEFAULT) [address] [place] [address] Listeria Monocytogenes DNA Not detected Normal Not Detected [facility] Comment on above: Order Comment: A neg ative result does not exclude the possibility of DICTATING MACHINE TYPIST infection and should not be used as [...] CHM7, IPB, CKB, TRIG, LDO #### [facility] (DEFAULT) [address] [place] [address] Neisseria Meningitidis DNA Not detected Normal Not Detected [facility] Comment on above: Order Comment: A neg ative result does not exclude the possibility of DICTATING MACHINE TYPIST infection and should not be used as [...] CHM7, IPB, CKB, TRIG, LDO #### [facility] (DEFAULT) [address] [place] [address] Streptococcus Agalactiae DNA Not detected Normal Not Detected [facility] Comment on above: Order Comment: A neg ative result does not exclude the possibility of DICTATING MACHINE TYPIST infection and should not be used as [...] CHM7, IPB, CKB, TRIG, LDO #### [facility] (DEFAULT) [address] [place] [address] Streptococcus Pneumoniae DNA Not detected Normal Not Detected [facility] Comment on above: Order Comment: A neg ative result does not exclude the possibility of DICTATING MACHINE TYPIST infection and should not be used as [...] CHM7, IPB, CKB, TRIG, LDO #### [facility] (DEFAULT) [address] [place] [address] Varicella Zoster DNA Not detected Normal Not Detected [facility] Comment on above: Order Comment: A neg ative result does not exclude the possibility of DICTATING MACHINE TYPIST infection and should not be used as [...] GO, CHM7, IPB, CKB, TRIG, LDO #### [facility] (DEFAULT) [address] [place] [address] PHOSPHATE, INORGANICon 05-05 Phosphorous 3.8 mg/dL Normal 2.2-4.6 [facility] Comment on above: Performed By: #### M GO, CHM7, IPB, CKB, TRIG, LDO #### [facility] (DEFAULT) [address] [place] [address] Phosphorous 3.8 mg/dL Normal 2.2-4.6 [facility] Comment on above: Performed By: #### M GO, CHM7, IPB, CKB, TRIG, LDO #### [facility] (DEFAULT) [address] [place] [address] POTASSIUMon 05-05-2024 Potassium [Moles/Vol] 4.2 mmol/L Normal 3.5-5.0 [facility] Comment on above: Performed By: #### M GO, CHM7, IPB, CKB, TRIG, LDO #### [facility] (DEFAULT) [address] [place] [address] PROTEIN & GLUCOSE, CSFon CSF Glucose 56 mg/dL Normal 40-70 [facility] Comment on above: Performed By: #### M OMER, CHM7, IPB, CKB, TRIG, LDO #### [facility] (DEFAULT) [address] [place] [address] CSF Protein 33 mg/dL Normal 15-45 [facility] Comment on above: Performed By: #### M OMER, CHM7, IPB, CKB, TRIG, LDO #### [facility] (DEFAULT) [address] [place] [address] SCREEN: MRSA/MSSAon 05-05-19 25 Methicillin Resistant S. Aureus By Pcr Negative Normal Negative [facility] Comment on above: Order Comment: Colle [...] by the [facility] at [facility]. It has not been cleared or approved by the FDA.The laboratory is regulated under CLIA as qualified to perform high-complexity testing. This test is used for clinical purposes. It should not be regarded as investigational or for research. Performed By: #### M GO, CHM7, IPB, CKB, TRIG, LDO #### [facility] (DEFAULT) [address] [place] [address] Staphylococcus Aureus By Pcr Negative Normal Negative [facility] Comment on above: Order Comment: Colle [...] by the [facility] at [facility]. It has not been cleared or approved by the FDA.The laboratory is regulated under CLIA as qualified to perform high-complexity testing. This test is used for clinical purposes. It should not be regarded as investigational or for research. Performed By: #### M GO, CHM7, IPB, CKB, TRIG, LDO #### [facility] (DEFAULT) [address] [place] [address] T4 FREEon 05-05-2024 Free T4 [Mass/Vol] 1.49 ng/dL Normal 0.89-1.76 [facility] Comment on above: Performed By: #### M OMER, CHM7, IPB, CKB, TRIG, LDO #### [facility] (DEFAULT) [address] [place] [address] TRIGLYCERIDEon 05-05-2024 Triglyceride [Mass/Vol] 113 mg/dL Normal <150 [facility] Comment on above: Order Comment: While on Propofol. Result Comment: [<15 0 mg/dL: Desirable] [150-199 mg/dL: Borderline] [200-499 mg/dL: High] [>500 mg/dL: Very High] Performed By: #### M OMER, CHM7, IPB, CKB, TRIG, LDO #### [facility] (DEFAULT) [address] [place] [address] TSH W/FT4 REFLEXon TSH 12.332 uIU/mL High 0.550-4.78 0 [facility] Comment on above: Performed By: #### M GO, CHM7, IPB, CKB, TRIG, LDO #### [facility] (DEFAULT) [address] [place] [address] VANCOMYCIN LEVEL, RANDOMon 0 05-05-2024 Vancomycin 21.7 mcg/mL High Peak: 20.0-40.0 mcg/mL, Trough: 10.0-20.0 mcg/mL [facility] Comment on above: Order Comment: While on Propofol. Performed By: #### M GO, CHM7, IPB, CKB, TRIG, LDO #### [facility] (DEFAULT) [address] [place] [address] VITAMIN D (25-HYDROXY,TOTAL) on 05-05-2024 25-OH Vitamin D Total 17.6 ng/mL Low 30.0-100.0 [facility] Comment on above: Order Comment: Vitam in D values have been shown to be falsely decreased in lipemic samples and should be interpreted with caution. Result Comment: <10 Deficiency 10-29 Insufficiency 30-100 Optimal Level >100 Possible Toxicity Performed By: #### F CRAG #### [facility] (DEFAULT) [address] [place] [address] XR ABDOMEN 1 VIEW PORTABLEon 05-05-2024 XR [...] Similar visualized dilated small bowel loops. Normal [facility] XR CHEST 1 VIEW PORTABLEon 0 [...] have reviewed and approved this report. Normal [facility] XR CHEST 1 VIEW PORTABLE EXAM: [...] have reviewed and approved this report. Normal [facility] ABORH TYPE RECONFIRMATIONon 05-04-2024 ABO/RH(D) TYPE AB POS Normal [facility] Comment on above: Result Comment: @ 23:40 by EKN: Performed By: #### T YPEC #### [facility] (DEFAULT) [address] [place] [address] AMMONIAon 05-04-2024 Ammonia (P) [Moles/Vol] 31 umol/L Normal 6-47 [facility] Comment on above: Performed By: #### M GO, CHM7, IPB, CKB, TRIG, LDO #### [facility] (DEFAULT) [address] [address] Absolute neutrophil countOrd ered By: Ralph Haynes on 05-04-2024 Absolute neutrophil count 9.8 X10^3/uL High 2.0-7.7 [facility] Ammoniaon 05-04-2024 Ammonia (P) [Moles/Vol] 20.0 umol/L Normal 11-32 [facility] Comment on above: Performed By: #### L 503.5510, L501.9520 ####[facility] [address] [place], [address] Arterial patency Wrist arter y --pre arterial punctureOrdered By: Adithya Harrell on 05-04-2024 Assessment of wrist artery patency prior to arterial puncture Positive [facility] BRCon 05-04-2024 RC Normal [facility] Comment on above: Result Comment: [id number] ABN RC TRANSFUSED 05/04/24 1258 Performed By: #### B RC, BTS ####[facility] [address] [place], [address] Base excess Calc (BldV) [Mol es/Vol]Ordered By: Adithya Harrell on 05-04-2024 Blood base excess determination 0 mmol/L -2-2 [facility] Basic Metabolic Profile (BMP )on 05-04-2024 BUN/CRE 15.6 RATIO Normal 10-20 [facility] Comment on above: Performed By: #### L 500.2500, L100.0100 ####[facility] [address] [place], [address] CA,Total 7.5 mg/dL Low 8.5-10.1 [facility] Comment on above: Performed By: #### L 500.2500, L100.0100 ####[facility] [address] [place], [address] Chloride [Moles/Vol] 106 mmol/L Normal 98-107 [facility] Comment on above: Performed By: #### L 500.2500, L100.0100 ####[facility] [address] [place], [address] CO2 [Moles/Vol] 23.0 mmol/L Normal 21.0-32.0 [facility] Comment on above: Performed By: #### L 500.2500, L100.0100 ####[facility] [address] [place], [address] Creatinine [Mass/Vol] 2.88 mg/dL High 0.55-1.02 [facility] Comment on above: Result Comment: The validity of the calculated GFR GFRAA in patients over70 years has not been determined. Clinical correlation isessential. Performed By: #### L 500.2500, L100.0100 ####[facility] [address] [place], [address] ECRCL 17.75 ml/min Normal [facility] Comment on above: Performed By: #### L 500.2500, L100.0100 ####[facility] [address] [place], [address] EST GFR - AA 20 mL/min Low >60 [facility] Comment on above: Result Comment: Afri can Japanese GFR Calc Performed By: #### L 500.2500, L100.0100 ####[facility] [address] [place], [address] GAP 9 Normal 5-15 [facility] Comment on above: Performed By: #### L 500.2500, L100.0100 ####[facility] [address] [place], [address] GFR/1.73 sq M.predicted among non-blacks MDRD (S/P/Bld) [Vol rate/Area] 17 mL/min/{1.73_m2} Low >60 [facility] Comment on above: Result Comment: Non- GFR Calc Performed By: #### L 500.2500, L100.0100 ####[facility] [address] [place], [address] Glucose [Mass/Vol] 104 mg/dL Normal 74-106 [facility] Comment on above: Result Comment: Fast ing Glucose result from 100 to 125 mg/dLsuggests IMPAIRED HOMEOSTASIS per A.D.A. criteria. Performed By: #### L 500.2500, L100.0100 ####[facility] [address] [place], [address] Potassium [Moles/Vol] 3.9 mmol/L Normal 3.5-5.1 [facility] Comment on above: Performed By: #### L 500.2500, L100.0100 ####[facility] [address] [place], [address] Sodium [Moles/Vol] 139 mmol/L Normal 136-145 [facility] Comment on above: Performed By: #### L 500.2500, L100.0100 ####[facility] [address] [place], [address] Urea nitrogen [Mass/Vol] 45 mg/dL High 7-18 [facility] Comment on above: Performed By: #### L 500.2500, L100.0100 ####[facility] [address] [place], [address] Basophil percentageOrdered B y: Ralph Haynes on 05-04-2024 Basophil percentage 0.3 % 0-1 [facility] Blood Gases by CPSon 025 ALMA DELIA TEST Positive Normal [facility] Comment on above: Performed By: #### L 9000.0800 ####[facility] [address] [place], [address] Base excess Calc (Bld) [Moles/Vol] 0 mmol/L Normal -2 to +2 [facility] Comment on above: Performed By: #### L 9000.0800 ####[facility] [address] [place], [address] Blood Gas Type ART Normal [facility] Comment on above: Performed By: #### L 9000.0800 ####[facility] [address] [place], [address] CO2 [Moles/Vol] 24 mmol/L Normal [facility] Comment on above: Performed By: #### L 9000.0800 ####[facility] [address] [place], [address] FI02 25.0 Normal [facility] Comment on above: Performed By: #### L 9000.0800 ####[facility] [address] [place], [address] HCO3 (Bld) [Moles/Vol] 22.8 mmol/L Normal 22-26 [facility] Comment on above: Performed By: #### L 9000.0800 ####[facility] [address] [place], [address] Mode AC/PC Normal [facility] Comment on above: Performed By: #### L 9000.0800 ####[facility] [address] [place], [address] O2 Delivery Dev Adult Vent Normal [facility] Comment on above: Performed By: #### L 9000.0800 ####[facility] [address] [place], [address] pCO2 26.4 mmHg Low 35-45 [facility] Comment on above: Performed By: #### L 9000.0800 ####[facility] [address] [place], [address] PEEP 5 Normal [facility] Comment on above: Performed By: #### L 9000.0800 ####[facility] [address] [place], [address] pH (Bld) 7.54 [pH] High 7.35-7.45 [facility] Comment on above: Performed By: #### L 9000.0800 ####[facility] [address] [place], [address] PIP 20 Normal [facility] Comment on above: Performed By: #### L 9000.0800 ####[facility] [address] [place], [address] PO2 78 mmHG Normal 75-100 [facility] Comment on above: Performed By: #### L 9000.0800 ####[facility] [address] [place], [address] RR 14 Normal [facility] Comment on above: Performed By: #### L 9000.0800 ####[facility] [address] [place], [address] SITE L Radial Normal [facility] Comment on above: Performed By: #### L 9000.0800 ####[facility] [address] [place], [address] SO2 97 Normal 95-99 [facility] Comment on above: Performed By: #### L 9000.0800 ####[facility] [address] [place], [address] Blood bicarbonate measuremen tOrdered By: Adithya Harrell on 05-04-2024 Blood bicarbonate measurement 22.8 mmol/L 22- [facility] Blood urea nitrogen (BUN)/cr eatinine ratioOrdered By: Ralph Haynes on 05-04-2024 Blood urea nitrogen (BUN)/creatinine ratio 15.6 RATIO 10-20 [facility] RAPHAEL AURIS SCREEN BY PCRo n 05-04-2024 Raphael auris Screen by PCR Not detected Normal Not Detected [facility] Comment on above: Order Comment: This test was performed using a real-time PCR assay. This test was developed, and its performance characteristics determined by The [facility]. It has not been cleared or approved by the FDA. The laboratory is regulated under CLIA as qualified to perform high-complexity testing. This test is used for clinical purposes. It should not be regarded as investigational or for research. Performed By: #### M GO, CHM7, IPB, CKB, TRIG, LDO #### [facility] (DEFAULT) [address] [address] CBC AND ELECTRONIC DIFFon Hematocrit (Bld) [Volume fraction] 24.7 % Low 34.9-44.3 [facility] Comment on above: Performed By: #### R ES #### [facility] (DEFAULT) [address] [address] Hemoglobin (Bld) [Mass/Vol] 7.9 g/dL Low 11.4-15.2 [facility] Comment on above: Performed By: #### R ES #### [facility] (DEFAULT) [address] [address] MCV (RBC) [Entitic vol] 98.8 fL High 79.6-97.7 [facility] Comment on above: Performed By: #### R ES #### [facility] (DEFAULT) [address] [address] Mean Cell Hgb 31.6 pg Normal 25.9-33.9 [facility] Comment on above: Performed By: #### R ES #### [facility] (DEFAULT) [address] [address] Mean Cell Hgb Conc 32.0 g/dL Normal 31.4-35.9 [facility] Comment on above: Performed By: #### R ES #### [facility] (DEFAULT) [address] [address] Mean Platelet Volume Normal [facility] Comment on above: Result Comment: Not measured Performed By: #### R ES #### [facility] (DEFAULT) [address] [place] [address] Platelets (Bld) [#/Vol] 96 10*3/uL Low 150-393 [facility] Comment on above: Result Comment: This is an appended report. These results have been appended to a previously preliminary verified report. Performed By: #### R ES #### [facility] (DEFAULT) [address] [place] [address] RBC (Bld) [#/Vol] 2.50 10*6/uL Low 3.91-5.04 [facility] Comment on above: Performed By: #### R ES #### [facility] (DEFAULT) [address] [place] [address] RBC Distribution 16.7 % High 10.8-14.9 [facility] Comment on above: Performed By: #### R ES #### [facility] (DEFAULT) [address] [place] [address] WBC (Bld) [#/Vol] 17.39 10*3/uL High 3.99-11.19 [facility] Comment on above: Result Comment: This is an appended report. These results have been appended to a previously preliminary verified report. Performed By: #### R ES #### [facility] (DEFAULT) [address] [place] [address] CBC W/Diff, Automatedon 04-07 PLT EST SLT DEC Normal ADEQ [facility] Comment on above: Performed By: #### L 500.2500, L100.0100 ####[facility] [id number] [facility]. [place], [place], [id number] STOMATOCYTE 1+ Normal [facility] Comment on above: Performed By: #### L 500.2500, L100.0100 ####[facility] [id number] [facility]. [place], [place], [id number] TARGET CELLS 1+ Normal [facility] Comment on above: Performed By: #### L 500.2500, L100.0100 ####[facility] [id number] [place], [place], [address] CHEM 7 (LYTES,BUN,CREA,GLUC) on 05-04-2024 Anion gap [Moles/Vol] 14 mmol/L Normal 7-17 [facility] Comment on above: Performed By: #### R ES #### [facility] (DEFAULT) [address] [place] [address] Chloride [Moles/Vol] 104 mmol/L Normal 98-108 [facility] Comment on above: Performed By: #### R ES #### [facility] (DEFAULT) [address] [place] [address] CO2 [Moles/Vol] 22 mmol/L Normal 21-31 [facility] Comment on above: Performed By: #### R ES #### [facility] (DEFAULT) [address] [place] [address]83 Creatinine [Mass/Vol] 3.28 mg/dL High 0.50-1.20 [facility] Comment on above: Performed By: #### R ES #### [facility] (DEFAULT) [address] [place] [address] GFR/1.73 sq M.predicted among non-blacks MDRD (S/P/Bld) [Vol rate/Area] 14 mL/min/{1.73_m2} Low >=60 [facility] Comment on above: Result Comment: Repo rted eGFR is based on the CKD-EPI 2020 equation using creatinine, age, and sex. Performed By: #### R ES #### [facility] (DEFAULT) [address] [place] [address] Glucose [Mass/Vol] 105 mg/dL High 70-99 [facility] Comment on above: Performed By: #### R ES #### [facility] (DEFAULT) [address] [place] [address] Osmolality [Osmolality] 298 mosm/kg Normal 278-305 [facility] Comment on above: Performed By: #### R ES #### [facility] (DEFAULT) [address] [place] [address] Potassium [Moles/Vol] 4.5 mmol/L Normal 3.5-5.0 [facility] Comment on above: Performed By: #### R ES #### [facility] (DEFAULT) [address] [place] [address] Sodium [Moles/Vol] 135 mmol/L Normal 135-145 [facility] Comment on above: Performed By: #### R ES #### [facility] (DEFAULT) [address] [place] [address] Urea nitrogen [Mass/Vol] 49 mg/dL High 7-25 [facility] Comment on above: Performed By: #### R ES #### [facility] (DEFAULT) [address] [place] [address] Urea nitrogen/Creatinine [Mass ratio] 15 mg/mg Normal [facility] Comment on above: Performed By: #### R ES #### [facility] (DEFAULT) [address] [place] [address] Calcium [Mass/Vol]Ordered By : Ralph Haynes on 05-04-2024 Serum or plasma calcium measurement (mass/volume) 7.5 mg/dL Low 8.5-10.1 [facility] Carbon dioxide measurementOr dered By: Ralph Haynes on 05-04-2024 Carbon dioxide measurement 23.0 mmol/L 21.0-32.0 [facility] Chloride measurementOrdered By: Ralph Haynes on 05-04-2024 Chloride measurement 106 mmol/L 98-107 [facility] Creatinine [Mass/Vol]Ordered By: Ralph Haynes on 05-04-2024 Serum or plasma creatinine measurement (mass/volume) 2.88 mg/dL High 0.55-1.02 [facility] Determination of fraction of inspired oxygenOrdered By: Adithya Harrell on 05-04-2024 Determination of fraction of inspired oxygen 25.0 [facility] Eosinophil percentageOrdered By: Ralph Haynes on 05-04-2024 Eosinophil percentage 1.3 % 0-5 [facility] Erythrocyte distribution wid th (RBC) [Ratio]Ordered By: Ralph Haynes on 05-04-2024 Erythrocyte distribution width ratio 16.3 % High 11.6-14.6 [facility] Erythrocyte distribution width standard deviation 57.5 fl High 35.1-43.9 [facility] Estimated glomerular filtrat ion rate (GFR) AmericanOrdered By: Ralph Haynes on 05-04-2024 Estimated glomerular filtration rate (GFR) 20 mL/min Low >60 [facility] Estimation of creatinine jackie aranceOrdered By: Ralph Haynes on 05-04-2024 Estimation of creatinine clearance 17.75 ml/min [facility] Glomerular filtration rate ( GFR) estimationOrdered By: Ralph Haynes on 05-04-2024 Glomerular filtration rate (GFR) estimation 17 mL/min Low >60 [facility] Glucose measurementOrdered B y: Ralph Haynes on 05-04-2024 Glucose measurement 104 mg/dL 74-106 [facility] HEPATIC FUNCTION PANELon Albumin [Mass/Vol] 2.4 g/dL Low 3.5-5.0 [facility] Comment on above: Performed By: #### R ES #### [facility] (DEFAULT) [address] [place] [address] ALP [Catalytic activity/Vol] 84 U/L Normal 32-126 [facility] Comment on above: Performed By: #### R ES #### [facility] (DEFAULT) [address] [place] [address] ALT [Catalytic activity/Vol] 11 U/L Normal 9-48 [facility] Comment on above: Performed By: #### R ES #### [facility] (DEFAULT) [address] [place] [address] AST [Catalytic activity/Vol] 23 U/L Normal 10-39 [facility] Comment on above: Performed By: #### R ES #### [facility] (DEFAULT) [address] [place] [address] Bilirubin [Mass/Vol] 0.5 mg/dL Normal <1.5 [facility] Comment on above: Performed By: #### R ES #### [facility] (DEFAULT) [address] [place] [address] Bilirubin.indirect [Mass/Vol] 0.1 mg/dL Normal <0.3 [facility] Comment on above: Performed By: #### R ES #### [facility] (DEFAULT) [address] [address] Protein [Mass/Vol] 4.6 g/dL Low 6.4-8.3 [facility] Comment on above: Performed By: #### R ES #### [facility] (DEFAULT) [address] [address] HH, Hemoglobin AND Hematocri ton 05-04-2024 Hematocrit (Bld) [Volume fraction] 23.2 % Low 37-47 [facility] Comment on above: Performed By: #### L 100.0600 ####[facility] [id number] [facility] [place], [address] Hemoglobin (Bld) [Mass/Vol] 7.6 g/dL Low 12.0-15.0 [facility] Comment on above: Performed By: #### L 100.0600 ####[facility] [id number] [facility] [place], [address] Hematocrit (Bld) [Volume fraction] 19.7 % Low 37-47 [facility] Comment on above: Order Comment: Comme nts: Post Transfusion Performed By: #### L 100.0600 ####[facility] [id number] [facility] [place], [address] Hemoglobin (Bld) [Mass/Vol] 6.4 g/dL Low 12.0-15.0 [facility] Comment on above: Order Comment: Comme nts: Post Transfusion Performed By: #### L 100.0600 ####[facility] [id number] [place], [address] Hematocrit Auto (Bld) [Volum e fraction]Ordered By: Edgar Davies on 05-04-2024 Automated blood hematocrit (percentage) 23.2 % Low 37-47 [facility] Hemoglobin measurementOrdere d By: Edgar Davies on 05-04-2024 Hemoglobin measurement 7.6 g/dL Low 12.0-15.0 [facility] INFLUENZA A/B, RSV BY PCRon 05-04-2024 Influenza A - Pcr Not detected Normal Not Detected [facility] Comment on above: Order Comment: Viral transport media (red screw top with red liquid media)This test was performed using a multiplex real time PCR assay. This result does not rule out co-infections with pathogens that were not screened for by this test. Results should be used in conjunction with other clinical and laboratory findings. Performed By: #### M OMER, CHM7, IPB, CKB, TRIG, LDO #### [facility] (DEFAULT) [address] [address] Influenza B - Pcr Not detected Normal Not Detected [facility] Comment on above: Order Comment: Viral transport media (red screw top with red liquid media)This test was performed using a multiplex real time PCR assay. This result does not rule out co-infections with pathogens that were not screened for by this test. Results should be used in conjunction with other clinical and laboratory findings. Performed By: #### M OMER, CHM7, IPB, CKB, TRIG, LDO #### [facility] (DEFAULT) [address] [place] [address] Rsv - Pcr Not detected Normal Not Detected [facility] Comment on above: Order Comment: Viral transport media (red screw top with red liquid media)This test was performed using a multiplex real time PCR assay. This result does not rule out co-infections with pathogens that were not screened for by this test. Results should be used in conjunction with other clinical and laboratory findings. Performed By: #### M OMER, CHM7, IPB, CKB, TRIG, LDO #### [facility] (DEFAULT) [address] [place] [address] IONIZED CALCIUM, WHOLE BLOOD on 05-04-2024 ICA 3.97 mg/dL Low 4.60-5.30 [facility] Comment on above: Performed By: #### M GO, CHM7, IPB, CKB, TRIG, LDO #### [facility] (DEFAULT) [address] [place] [address] Immature granulocytes/100 WB C Auto (Bld)Ordered By: Ralph Haynes on 05-04-2024 Automated immature granulocyte percentage 4.700 % High 0.0-0.9 [facility] Lymphocytes Auto (Unsp spec) [#/Vol]Ordered By: Ralph Haynes on 05-04-2024 Absolute lymphocyte count 2.03 X10^3/uL 0.83-4.51 [facility] Lymphocytes/100 WBC Auto (Un sp spec)Ordered By: Ralph Haynes on 05-04-2024 Automated lymphocyte count as percentage of total leukocytes 14.6 % Low 19-41 [facility] MAGNESIUMon 05-04-2024 Magnesium [Mass/Vol] 1.5 mg/dL Low 1.6-2.6 [facility] Comment on above: Performed By: #### R ES #### [facility] (DEFAULT) [address] [place] [address] MCV (RBC) [Entitic vol]Order ed By: Ralph Haynes on 05-04-2024 MCV (mean corpuscular volume) determination 96.4 fL 81-99 [facility] MR/CON.PCM.NEon 05-04-2024 MR/CON.PCM.NE Normal [facility] Mean corpuscular hemoglobin (MCH) determinationOrdered By: Ralph Haynes on 05-04-2024 Mean corpuscular hemoglobin (MCH) determination 32.3 pg High 27.0-32.0 [facility] Mean corpuscular hemoglobin concentration (MCHC) determinationOrdered By: Ralph Haynes on 05-04-2024 Mean corpuscular hemoglobin concentration (MCHC) determination 33.5 g/dL 32-36 [facility] Mean platelet volume determi nationOrdered By: Ralph Haynes on 05-04-2024 Mean platelet volume determination 11.6 fl 6.2-12.0 [facility] Monocyte percentageOrdered B y: Ralph Haynes on 05-04-2024 Monocyte percentage 8.2 % 0-10 [facility] Neutrophil percentageOrdered By: Ralph Haynes on 05-04-2024 Neutrophil percentage 70.9 % High 47-70 [facility] No Panel InformationOrdered By: Adithya Harrell on 05-04-2024 ART [facility] L Radial [facility] AC/PC [facility] Adult Vent [facility] 20 [facility] 14 [facility] 5 [facility] Nucleated red blood cell per centageOrdered By: Ralph Haynes on 05-04-2024 Nucleated red blood cell percentage 1.7 % 0-5 [facility] Oxygen saturation measuremen tOrdered By: Adithya Harrell on 05-04-2024 Oxygen saturation measurement 97 % 95-99 [facility] PHOSPHATE, INORGANICon 05-04 Phosphorous 3.8 mg/dL Normal 2.2-4.6 [facility] Comment on above: Performed By: #### R ES #### [facility] (DEFAULT) [address] [place] [address] PT,INR,PTTon 05-04-2024 aPTT Coag (Bld) [Time] 32.8 s Normal 24.0-34.3 [facility] Comment on above: Performed By: #### M GO, CHM7, IPB, CKB, TRIG, LDO #### [facility] (DEFAULT) [address] [place] [address] INR Coag (PPP) [Relative time] 1.1 {INR} Normal 0.9-1.1 [facility] Comment on above: Performed By: #### M GO, CHM7, IPB, CKB, TRIG, LDO #### [facility] (DEFAULT) [address] [place] [address] PT Coag (PPP) [Time] 14.2 s Normal 11.9-14.2 [facility] Comment on above: Performed By: #### M ROXY TELLO, IPB, CKB, TRIG, LDO #### [facility] (DEFAULT) [address] [place] [address] Partial pressure of carbon d ioxide measurementOrdered By: Adithya Harrell on 05-04-2024 Partial pressure of carbon dioxide measurement 26.4 mmHg Low 35-45 [facility] Partial pressure of oxygen m easurementOrdered By: Adithya Harrell on 05-04-2024 Partial pressure of oxygen measurement 78 mmHG 75-100 [facility] Platelet countOrdered By: Roman Haynes on 05-04-2024 Platelet count 99 K/mm3 Low 150-450 [facility] Platelets LM Ql (Bld)Ordered By: Ralph Haynes on 05-04-2024 Platelet estimate SLT DEC ADEQ [facility] Potassium measurementOrdered By: Ralph Haynes on 05-04-2024 Potassium measurement 3.9 mmol/L 3.5-5.1 [facility] RBC Auto (Bld) [#/Vol]Ordere d By: Ralph Haynes on 05-04-2024 Automated blood erythrocyte count 1.95 M/mm3 Low 4.2-5.4 [facility] SCREEN: MRSA/MSSAon 05-04-19 25 Methicillin Resistant S. Aureus By Pcr Negative Normal Negative [facility] Comment on above: Order Comment: Colle [...] by the Clinical Microbiology Laboratory at [facility]. It has not been cleared or approved by the FDA.The laboratory is regulated under CLIA as qualified to perform high-complexity testing. This test is used for clinical purposes. It should not be regarded as investigational or for research. Performed By: #### M GO, CHM7, IPB, CKB, TRIG, LDO #### [facility] (DEFAULT) [address] [address] Staphylococcus Aureus By Pcr Negative Normal Negative [facility] Comment on above: Order Comment: Colle [...] by the Clinical Microbiology Laboratory at [facility]. It has not been cleared or approved by the FDA.The laboratory is regulated under CLIA as qualified to perform high-complexity testing. This test is used for clinical purposes. It should not be regarded as investigational or for research. Performed By: #### M OMER, CHM7, IPB, CKB, TRIG, LDO #### [facility] (DEFAULT) [address] [address] Serum anion gap measurementO rdered By: Ralph Haynes on 05-04-2024 Serum anion gap measurement 9 5-15 [facility] Sodium levelOrdered By: Jeovanny Haynes on 05-04-2024 Sodium level 139 mmol/L 136-145 [facility] TSH QnOrdered By: Edgar sapp on 05-04-2024 Serum or plasma thyroid stimulating hormone (TSH) measurement (units/volume) 15.400 uIU/mL High 0.358-3.74 0 [facility] TYPE AND SCREENon 05-04-2024 ABO/RH(D) TYPE AB POS Normal [facility] Comment on above: Result Comment: @ 22:49 by FT04: Performed By: #### M OMER, CHM7, IPB, CKB, TRIG, LDO #### [facility] (DEFAULT) [address] [place] [address] Outdate Specimen 05/07/2024 23:59 Normal [facility] Comment on above: Performed By: #### M GO, CHM7, IPB, CKB, TRIG, LDO #### [facility] (DEFAULT) [address] [address] Target cell detectionOrdered By: Ralph Haynes on 05-04-2024 Target cell detection 1+ [facility] Thyroid Stim Hormone (TSH)on 05-04-2024 TSH 15.400 uIU/mL High 0.358-3.74 0 [facility] Comment on above: Performed By: #### L 503.5510, L501.9520 ####[facility] [address] [place], [place], [address] Total carbon dioxide measure mentOrdered By: Adithya Harrell on 05-04-2024 Total carbon dioxide measurement 24 mmol/L [facility] Type AND Screenon ABO and Rh group Nom (Bld) Blood group AB Rh(D) positive Normal [facility] Comment on above: Order Comment: CMV N EG? NNumber of units to transfuse: 1Reason for Ordering Blood: AcuteAre the blood/blood products to be transfused? YIs the patient having/had surgery? NWhen ReadyNY Performed By: #### B RC, BTS ####[facility] [address] [place], [place], [address] URINALYSIS REFLEX TO CULTURE PERFORMABLEon 05-04-2024 Appearance (U) Turbid Abnormal Clear [facility] Comment on above: Order Comment: For i ndwelling catheters, specimen collection is acceptable on catheter day 1 and 2 only. ? Performed By: #### M GO, CHM7, IPB, CKB, TRIG, LDO #### [facility] (DEFAULT) [address] [address] Bacteria PRESENT Abnormal ABSENT [facility] Comment on above: Order Comment: For i ndwelling catheters, specimen collection is acceptable on catheter day 1 and 2 only. ? Performed By: #### M GO, CHM7, IPB, CKB, TRIG, LDO #### [facility] (DEFAULT) [address] [place] [address] Blood Urine Large Abnormal Negative [facility] Comment on above: Order Comment: For i ndwelling catheters, specimen collection is acceptable on catheter day 1 and 2 only. ? Performed By: #### M GO, CHM7, IPB, CKB, TRIG, LDO #### [facility] (DEFAULT) [address] [place] [address] Color (U) Yellow Normal Yellow [facility] Comment on above: Order Comment: For i ndwelling catheters, specimen collection is acceptable on catheter day 1 and 2 only. ? Performed By: #### M GO, CHM7, IPB, CKB, TRIG, LDO #### [facility] (DEFAULT) [address] [place] [address] Glucose Ql (U) Negative Normal Negative [facility] Comment on above: Order Comment: For i ndwelling catheters, specimen collection is acceptable on catheter day 1 and 2 only. ? Performed By: #### M GO, CHM7, IPB, CKB, TRIG, LDO #### [facility] (DEFAULT) [address] [place] [address] Ketones Ql (U) Negative Normal Negative [facility] Comment on above: Order Comment: For i ndwelling catheters, specimen collection is acceptable on catheter day 1 and 2 only. ? Performed By: #### M GO, CHM7, IPB, CKB, TRIG, LDO #### [facility] (DEFAULT) [address] [place] [address] Leukocyte esterase Test strip Ql (U) Large Abnormal Negative [facility] Comment on above: Order Comment: For i ndwelling catheters, specimen collection is acceptable on catheter day 1 and 2 only. ? Performed By: #### M GO, CHM7, IPB, CKB, TRIG, LDO #### [facility] (DEFAULT) [address] [place] [address] Mucus Ql (Urine sed) PRESENT Normal [facility] Comment on above: Order Comment: For i ndwelling catheters, specimen collection is acceptable on catheter day 1 and 2 only. ? Performed By: #### M GO, CHM7, IPB, CKB, TRIG, LDO #### [facility] (DEFAULT) [address] [place] [address] Nitrites Urine Negative Normal Negative [facility] Comment on above: Order Comment: For i ndwelling catheters, specimen collection is acceptable on catheter day 1 and 2 only. ? Performed By: #### M GO, CHM7, IPB, CKB, TRIG, LDO #### [facility] (DEFAULT) [address] [place] [address] pH (U) 5.0 [pH] Normal 5.0-7.0 [facility] Comment on above: Order Comment: For i ndwelling catheters, specimen collection is acceptable on catheter day 1 and 2 only. ? Performed By: #### M GO, CHM7, IPB, CKB, TRIG, LDO #### [facility] (DEFAULT) [address] [place] [address] Protein Urine 30 mg/dL Abnormal Negative [facility] Comment on above: Order Comment: For i ndwelling catheters, specimen collection is acceptable on catheter day 1 and 2 only. ? Performed By: #### M GO, CHM7, IPB, CKB, TRIG, LDO #### [facility] (DEFAULT) [address] [place] [address] RBC Urine 11-25 Abnormal 0-2 [facility] Comment on above: Order Comment: For i ndwelling catheters, specimen collection is acceptable on catheter day 1 and 2 only. ? Performed By: #### M GO, CHM7, IPB, CKB, TRIG, LDO #### [facility] (DEFAULT) [address] [place] [address] Specific [place] Urine 1.009 Normal 1.001 -1.03 5 [facility] Comment on above: Order Comment: For i ndwelling catheters, specimen collection is acceptable on catheter day 1 and 2 only. ? Performed By: #### M GO, CHM7, IPB, CKB, TRIG, LDO #### [facility] (DEFAULT) [address] [place] [address] Squamous/Epithelial Cells 6-10/hpf = 2+ Abnormal 0-2/hpf, 3-5/hpf = 1+ [facility] Comment on above: Order Comment: For i ndwelling catheters, specimen collection is acceptable on catheter day 1 and 2 only. ? Performed By: #### M GO, CHM7, IPB, CKB, TRIG, LDO #### [facility] (DEFAULT) [address] [place] [address] Urobilinogen Urine 0.2 E.U./dL Normal 0.2 E.U/dL, 1.0 E.U/dL [facility] Comment on above: Order Comment: For i ndwelling catheters, specimen collection is acceptable on catheter day 1 and 2 only. ? Performed By: #### M GO, CHM7, IPB, CKB, TRIG, LDO #### [facility] (DEFAULT) [address] [place] [id number] WBC LM.HPF (Urine sed) [#/Area] /[HPF] Abnormal 0 - 5 [facility] Comment on above: Order Comment: For i ndwelling catheters, specimen collection is acceptable on catheter day 1 and 2 only. ? Performed By: #### M GO, CHM7, IPB, CKB, TRIG, LDO #### [facility] (DEFAULT) [address] [place] [address] URINE CULTUREon 05-04-2024 Bacteria identified Cx Nom (U) No Growth Normal [facility] Comment on above: Order Comment: For [...] CHM7, IPB, CKB, TRIG, LDO #### [facility] (DEFAULT) [address] [place] [address] Urea nitrogen [Mass/Vol]Orde red By: Ralph Haynes on 05-04-2024 Serum or plasma urea nitrogen measurement (mass/volume) 45 mg/dL High 7-18 [facility] Urine Cultureon 05-04-2024 URC Normal [facility] Comment on above: Performed By: #### M 100.2200, L400.0001 ####[facility] [address] [place], [address] VENOUS BLOOD GAS PLUS LACTAT Jose 05-04-2024 Base Excess -2.6 mmol/L Normal -3.0-3.0 [facility] Comment on above: Performed By: #### G ASVL #### [facility] (DEFAULT) [address] [place] [address] HCO3 (Bld) [Moles/Vol] 23 mmol/L Normal 22-29 [facility] Comment on above: Performed By: #### G ASVL #### [facility] (DEFAULT) [address] [place] [address] Lactate, Whole Blood 0.8 mmol/L Normal 0.5-1.6 [facility] Comment on above: Performed By: #### G ASVL #### [facility] (DEFAULT) [address] [place] [address] Oxygen saturation in Blood 74 % Normal 70-80 [facility] Comment on above: Performed By: #### G ASVL #### [facility] (DEFAULT) [address] [place] [address] pCO2, Venous 38 mm Hg Normal 36-52 [facility] Comment on above: Performed By: #### G ASVL #### [facility] (DEFAULT) [address] [place] [address] pH, Venous 7.38 Normal 7.32-7.43 [facility] Comment on above: Performed By: #### G ASVL #### [facility] (DEFAULT) [address] [address] pO2, Venous 40 mm Hg Normal [facility] Comment on above: Result Comment: Veno us pO2 is not recommended for the evaluation of oxygen status, clinical correlation is recommended. Performed By: #### G ASVL #### [facility] (DEFAULT) [address] [address] Specimen type Nom (Spec) Venous Normal [facility] Comment on above: Performed By: #### G ASVL #### [facility] (DEFAULT) [address] [address] Vancomycin [Mass/Vol]Ordered By: Edgar Davies on 05-04-2024 Serum or plasma vancomycin level (mass/volume) 17.9 ug/mL High 0.0-15.0 [facility] Vancomycin, Random Levelon 0 05-04-2024 VANCO, RANDOM 17.9 ug/mL High 0.0-15.0 [facility] Comment on above: Result Comment: VANC OMYCIN STANDARD DRUG THERAPY: CRITICAL VALUE IS > 15.0 mg/LVANCOMYCIN HIGH INTENSITY THERAPY: CRITICAL VALUE IS > 20.0 mg/LPLEASE CONTACT PHARMACY SERVICES (#5327) FOR INTERPRETATIONOF RESULTS. THIS RESULT DOES NOT REPRESENT A PEAK OR TROUGHLEVEL FOR THIS DRUG. Performed By: #### L 501.8850 ####[facility] [address] [place], [address] VANCO, RANDOM 20.6 ug/mL High 0.0-15.0 [facility] Comment on above: Result Comment: VANC OMYCIN STANDARD DRUG THERAPY: CRITICAL VALUE IS > 15.0 mg/LVANCOMYCIN HIGH INTENSITY THERAPY: CRITICAL VALUE IS > 20.0 mg/LPLEASE CONTACT PHARMACY SERVICES (#7946) FOR INTERPRETATIONOF RESULTS. THIS RESULT DOES NOT REPRESENT A PEAK OR TROUGHLEVEL FOR THIS DRUG. Performed By: #### L 501.8850 ####[facility] [address] [place], [address] Venous blood ammonia measure mentOrdered By: Edgar Davies on 05-04-2024 Venous blood ammonia measurement 20.0 umol/L -32 [facility] White blood cell (WBC) count Ordered By: Ralph Haynes on 05-04-2024 White blood cell (WBC) count 13.9 K/mm3 High 4.4-11.0 [facility] XR ABDOMEN 1 VIEW PORTABLEon 05-04-2024 XR [...] of small bowel may reflect ileus. Normal [facility] pH (Unsp spec)Ordered By: Arnoldo Harrell on 05-04-2024 Measurement, pH 7.54 High 7.35-7.45 [facility] Albumin [Mass/Vol]Ordered By : Qian Albrecht on 05-03-2024 Serum or plasma albumin measurement (mass/volume) 1.8 g/dL Low 3.2-5.0 [facility] Basic Metabolic Profile (BMP )on 05-03-2024 BUN/CRE 18.0 RATIO Normal 10-20 [facility] Comment on above: Performed By: #### L 501.5200, L100.0100, L501.2300, L500.2500 ####[facility] [address] [place], [address] CA,Total 7.6 mg/dL Low 8.5-10.1 [facility] Comment on above: Performed By: #### L 501.5200, L100.0100, L501.2300, L500.2500 ####[facility] [address] [place], [address] Chloride [Moles/Vol] 110 mmol/L High 98-107 [facility] Comment on above: Performed By: #### L 501.5200, L100.0100, L501.2300, L500.2500 ####[facility] [address] [place], [address] CO2 [Moles/Vol] 22.0 mmol/L Normal 21.0-32.0 [facility] Comment on above: Performed By: #### L 501.5200, L100.0100, L501.2300, L500.2500 ####[facility] [address] [place], [address] Creatinine [Mass/Vol] 3.72 mg/dL High 0.55-1.02 [facility] Comment on above: Result Comment: The validity of the calculated GFR GFRAA in patients over70 years has not been determined. Clinical correlation isessential. Performed By: #### L 501.5200, L100.0100, L501.2300, L500.2500 ####[facility] [address] [place], [address] ECRCL 13.73 ml/min Normal [facility] Comment on above: Performed By: #### L 501.5200, L100.0100, L501.2300, L500.2500 ####[facility] [address] [place], [address] EST GFR - AA 15 mL/min Low >60 [facility] Comment on above: Result Comment: Afri can Japanese GFR Calc Performed By: #### L 501.5200, L100.0100, L501.2300, L500.2500 ####[facility] [address] [place], [address] GAP 9 Normal 5-15 [facility] Comment on above: Performed By: #### L 501.5200, L100.0100, L501.2300, L500.2500 ####[facility] [address] [place], [address] GFR/1.73 sq M.predicted among non-blacks MDRD (S/P/Bld) [Vol rate/Area] 12 mL/min/{1.73_m2} Low >60 [facility] Comment on above: Result Comment: Non- GFR Calc Performed By: #### L 501.5200, L100.0100, L501.2300, L500.2500 ####[facility] [address] [place], [address] Glucose [Mass/Vol] 122 mg/dL High 74-106 [facility] Comment on above: Result Comment: Fast ing Glucose result from 100 to 125 mg/dLsuggests IMPAIRED HOMEOSTASIS per A.D.A. criteria. Performed By: #### L 501.5200, L100.0100, L501.2300, L500.2500 ####[facility] [address] [place], [address] Potassium [Moles/Vol] 4.1 mmol/L Normal 3.5-5.1 [facility] Comment on above: Performed By: #### L 501.5200, L100.0100, L501.2300, L500.2500 ####[facility] [address] [place], [address] Sodium [Moles/Vol] 140 mmol/L Normal 136-145 [facility] Comment on above: Performed By: #### L 501.5200, L100.0100, L501.2300, L500.2500 ####[facility] [address] [place], [address] Urea nitrogen [Mass/Vol] 67 mg/dL High 7-18 [facility] Comment on above: Performed By: #### L 501.5200, L100.0100, L501.2300, L500.2500 ####[facility] [address] [place], [address] Kidney and Bladderon 025 Kidney and Bladder Normal [facility] Magnesiumon 05-03-2024 Magnesium [Mass/Vol] 1.6 mg/dL Normal 1.6-2.6 [facility] Comment on above: Performed By: #### L 501.5200, L100.0100, L501.2300, L500.2500 ####[facility] [address] [place], [address] Magnesium measurementOrdered By: Ralph Haynes on 05-03-2024 Magnesium measurement 1.6 mg/dL 1.6-2.6 [facility] Manual differential comment Janes (Bld) [Interp]Ordered By: Ralph Haynes on 05-03-2024 Blood manual differential comment interpretation (narrative result) SCANNED [facility] Pathologist review Janes (Unsp spec) [Interp]Ordered By: Ralph Haynes on 05-03-2024 Review by pathologist Reviewed [facility] Phosphoruson 05-03-2024 Phosphate [Mass/Vol] 3.5 mg/dL Normal 2.5-4.9 [facility] Comment on above: Performed By: #### L 501.5200, L100.0100, L501.2300, L500.2500 ####[facility] [address] [place], [address] Phosphorus measurementOrdere d By: Qian Albrecht on 05-03-2024 Phosphorus measurement 2.4 mg/dL Low 2.5-4.9 [facility] Renal Profileon 05-03-2024 Albumin [Mass/Vol] 1.8 g/dL Low 3.2-5.0 [facility] Comment on above: Performed By: #### L 500.3600 ####[facility] [address] [place], [address] BUN/CRE 17.0 RATIO Normal 10-20 [facility] Comment on above: Performed By: #### L 500.3600 ####[facility] [address] [place], [address] CA,Total 7.9 mg/dL Low 8.5-10.1 [facility] Comment on above: Performed By: #### L 500.3600 ####[facility] [address] [place], [address] Chloride [Moles/Vol] 106 mmol/L Normal 98-107 [facility] Comment on above: Performed By: #### L 500.3600 ####[facility] [address] [place], [address] CO2 [Moles/Vol] 24.0 mmol/L Normal 21.0-32.0 [facility] Comment on above: Performed By: #### L 500.3600 ####[facility] [address] [place], [address] Creatinine [Mass/Vol] 2.35 mg/dL High 0.55-1.02 [facility] Comment on above: Result Comment: The validity of the calculated GFR GFRAA in patients over70 years has not been determined. Clinical correlation isessential. Performed By: #### L 500.3600 ####[facility] [address] [place], [address] ECRCL 21.74 ml/min Normal [facility] Comment on above: Performed By: #### L 500.3600 ####[facility] [address] [place], [address] EST GFR - AA 26 mL/min Low >60 [facility] Comment on above: Result Comment: Afri can Japanese GFR Calc Performed By: #### L 500.3600 ####[facility] [address] [place], [address] GFR/1.73 sq M.predicted among non-blacks MDRD (S/P/Bld) [Vol rate/Area] 21 mL/min/{1.73_m2} Low >60 [facility] Comment on above: Result Comment: Non- GFR Calc Performed By: #### L 500.3600 ####[facility] [address] [place], [address] Glucose [Mass/Vol] 105 mg/dL Normal 74-106 [facility] Comment on above: Result Comment: Fast ing Glucose result from 100 to 125 mg/dLsuggests IMPAIRED HOMEOSTASIS per A.D.A. criteria. Performed By: #### L 500.3600 ####[facility] [address] [place], [address] Phosphate [Mass/Vol] 2.4 mg/dL Low 2.5-4.9 [facility] Comment on above: Performed By: #### L 500.3600 ####[facility] [address] [place], [address] Potassium [Moles/Vol] 4.0 mmol/L Normal 3.5-5.1 [facility] Comment on above: Performed By: #### L 500.3600 ####[facility] [address] [place], [address] Sodium [Moles/Vol] 139 mmol/L Normal 136-145 [facility] Comment on above: Performed By: #### L 500.3600 ####[facility] [address] [place], [address] Urea nitrogen [Mass/Vol] 40 mg/dL High 7-18 [facility] Comment on above: Performed By: #### L 500.3600 ####[facility] [address] [place], [address] Albumin [Mass/Vol] 1.8 g/dL Low 3.2-5.0 [facility] Comment on above: Performed By: #### L 500.3600 ####[facility] [address] [place], [address] BUN/CRE 18.0 RATIO Normal 10-20 [facility] Comment on above: Performed By: #### L 500.3600 ####[facility] [address] [place], [address] CA,Total 7.7 mg/dL Low 8.5-10.1 [facility] Comment on above: Performed By: #### L 500.3600 ####[facility] [address] [place], [address] Chloride [Moles/Vol] 109 mmol/L High 98-107 [facility] Comment on above: Performed By: #### L 500.3600 ####[facility] [address] [place], [address] CO2 [Moles/Vol] 22.0 mmol/L Normal 21.0-32.0 [facility] Comment on above: Performed By: #### L 500.3600 ####[facility] [address] [place], [address] Creatinine [Mass/Vol] 3.11 mg/dL High 0.55-1.02 [facility] Comment on above: Result Comment: The validity of the calculated GFR GFRAA in patients over70 years has not been determined. Clinical correlation isessential. Performed By: #### L 500.3600 ####[facility] [address] [place], [address] ECRCL 16.43 ml/min Normal [facility] Comment on above: Performed By: #### L 500.3600 ####[facility] [address] [place], [address] EST GFR - AA 18 mL/min Low >60 [facility] Comment on above: Result Comment: Afri can Japanese GFR Calc Performed By: #### L 500.3600 ####[facility] [address] [place], [address] GFR/1.73 sq M.predicted among non-blacks MDRD (S/P/Bld) [Vol rate/Area] 15 mL/min/{1.73_m2} Low >60 [facility] Comment on above: Result Comment: Non- GFR Calc Performed By: #### L 500.3600 ####[facility] [address] [place], [address] Glucose [Mass/Vol] 111 mg/dL High 74-106 [facility] Comment on above: Result Comment: Fast ing Glucose result from 100 to 125 mg/dLsuggests IMPAIRED HOMEOSTASIS per A.D.A. criteria. Performed By: #### L 500.3600 ####[facility] [address] [place], [address] Phosphate [Mass/Vol] 3.2 mg/dL Normal 2.5-4.9 [facility] Comment on above: Performed By: #### L 500.3600 ####[facility] [address] [place], [address] Potassium [Moles/Vol] 4.0 mmol/L Normal 3.5-5.1 [facility] Comment on above: Performed By: #### L 500.3600 ####[facility] [address] [place], [address] Sodium [Moles/Vol] 140 mmol/L Normal 136-145 [facility] Comment on above: Performed By: #### L 500.3600 ####[facility] [address] [place], [address] Urea nitrogen [Mass/Vol] 56 mg/dL High 7-18 [facility] Comment on above: Performed By: #### L 500.3600 ####[facility] [address] [place], [address] Albumin [Mass/Vol] 2.0 g/dL Low 3.2-5.0 [facility] Comment on above: Performed By: #### L 500.3600 ####[facility] [address] [place], [address] BUN/CRE 18.2 RATIO Normal 10-20 [facility] Comment on above: Performed By: #### L 500.3600 ####[facility] [address] [place], [address] CA,Total 7.6 mg/dL Low 8.5-10.1 [facility] Comment on above: Performed By: #### L 500.3600 ####[facility] [address] [place], [address] Chloride [Moles/Vol] 110 mmol/L High 98-107 [facility] Comment on above: Performed By: #### L 500.3600 ####[facility] [address] [place], [address] CO2 [Moles/Vol] 21.0 mmol/L Normal 21.0-32.0 [facility] Comment on above: Performed By: #### L 500.3600 ####[facility] [address] [place], [address] Creatinine [Mass/Vol] 3.69 mg/dL High 0.55-1.02 [facility] Comment on above: Result Comment: The validity of the calculated GFR GFRAA in patients over70 years has not been determined. Clinical correlation isessential. Performed By: #### L 500.3600 ####[facility] [address] [place], [address] ECRCL 13.84 ml/min Normal [facility] Comment on above: Performed By: #### L 500.3600 ####[facility] [address] [place], [address] EST GFR - AA 15 mL/min Low >60 [facility] Comment on above: Result Comment: Afri can Japanese GFR Calc Performed By: #### L 500.3600 ####[facility] [address] [place], [address] GFR/1.73 sq M.predicted among non-blacks MDRD (S/P/Bld) [Vol rate/Area] 13 mL/min/{1.73_m2} Low >60 [facility] Comment on above: Result Comment: Non- GFR Calc Performed By: #### L 500.3600 ####[facility] [address] [place], [address] Glucose [Mass/Vol] 120 mg/dL High 74-106 [facility] Comment on above: Result Comment: Fast ing Glucose result from 100 to 125 mg/dLsuggests IMPAIRED HOMEOSTASIS per A.D.A. criteria. Performed By: #### L 500.3600 ####[facility] [address] [place], [address] Phosphate [Mass/Vol] 3.5 mg/dL Normal 2.5-4.9 [facility] Comment on above: Performed By: #### L 500.3600 ####[facility] [address] [place], [address] Potassium [Moles/Vol] 4.1 mmol/L Normal 3.5-5.1 [facility] Comment on above: Performed By: #### L 500.3600 ####[facility] [address] [place], [address] Sodium [Moles/Vol] 140 mmol/L Normal 136-145 [facility] Comment on above: Performed By: #### L 500.3600 ####[facility] [address] [place], [address] Urea nitrogen [Mass/Vol] 67 mg/dL High 7-18 [facility] Comment on above: Performed By: #### L 500.3600 ####[facility] [address] [place], [place], [id number] Respiratory Cultureon 2024 RESPC Mixed normal respira tory gisela. No Streptococcus pneumoniae, beta-hemolytic Streptococcus or Staphylococcus aureus isolated. Normal [facility] Comment on above: Performed By: #### M 100.2000, M100.2400 ####[facility] [address] [place], [place], [id number] Vancomycin trough [Mass/Vol] Ordered By: Ralph Haynes on 05-03-2024 Serum or plasma trough vancomycin level 24.6 ug/mL High 5.0-15.0 [facility] Vancomycin, Random Levelon 0 05-03-2024 VANCO, RANDOM 20.8 ug/mL High 0.0-15.0 [facility] Comment on above: Result Comment: VANC OMYCIN STANDARD DRUG THERAPY: CRITICAL VALUE IS > 15.0 mg/LVANCOMYCIN HIGH INTENSITY THERAPY: CRITICAL VALUE IS > 20.0 mg/LPLEASE CONTACT PHARMACY SERVICES (#8354) FOR INTERPRETATIONOF RESULTS. THIS RESULT DOES NOT REPRESENT A PEAK OR TROUGHLEVEL FOR THIS DRUG. Performed By: #### L 501.8850 ####[facility] [address] [place], [address] VANCO, RANDOM 26.5 ug/mL High 0.0-15.0 [facility] Comment on above: Result Comment: VANC OMYCIN STANDARD DRUG THERAPY: CRITICAL VALUE IS > 15.0 mg/LVANCOMYCIN HIGH INTENSITY THERAPY: CRITICAL VALUE IS > 20.0 mg/LPLEASE CONTACT PHARMACY SERVICES (#8373) FOR INTERPRETATIONOF RESULTS. THIS RESULT DOES NOT REPRESENT A PEAK OR TROUGHLEVEL FOR THIS DRUG. Performed By: #### L 501.8850 ####[facility] [address] [place], [place], [id number] Vancomycin, Trough Levelon 0 05-03-2024 VANCO, TROUGH 24.6 ug/mL High 5.0-15.0 [facility] Comment on above: Order Comment: Comme nts: DRAW 30 MIN PRIOR TO [id number] Result Comment: VANC OMYCIN STANDARED DRUG THERAPY TROUGH LEVEL: 5.0 - 15.0 mg/LVANCOMYCIN HIGH INTENSITY THERAPY TROUGH LEVEL: 15.0 - 20.0 mg/LHigh Intensity therapy recommended for serious lifethreatening infections include:- Nykcyceltw-Seroqwnkzjtl-Fgkukffsm (Ventilator/Healtcare Associated)-SepsisPLEASE CONTACT PHARMACY SERVICES (#9422) FOR INTERPRETATIONOF RESULTS. Performed By: #### L 501.8820 ####[facility] [address] [place], [address] 12 Lead EKGon 05-02-2024 12 Lead EKG Normal [facility] 12 Lead EKG Normal [facility] 12 Lead EKG Normal [facility] DELIA TEST N/A Normal [facility] Comment on above: Performed By: #### L 9000.0800 ####[facility] [address] [place], [address] Base excess Calc (Bld) [Moles/Vol] -17 mmol/L Low -2 to +2 [facility] Comment on above: Performed By: #### L 9000.0800 ####[facility] [address] [place], [address] Blood Gas Type ART Normal [facility] Comment on above: Performed By: #### L 9000.0800 ####[facility] [address] [place], [address] CO2 [Moles/Vol] 9 mmol/L Normal [facility] Comment on above: Performed By: #### L 9000.0800 ####[facility] [address] [facility] [address] FI02 21.0 [facility] Comment on above: Performed By: #### L 9000.0800 ####[facility] [address] [place], [address] HCO3 (Bld) [Moles/Vol] 8.8 mmol/L Low 22-26 [facility] Comment on above: Performed By: #### L 9000.0800 ####[facility] [address] [place], [address] Mode AC/PC Normal [facility] Comment on above: Performed By: #### L 9000.0800 ####[facility] [address] [place], [address] O2 Delivery Dev Adult Vent Normal [facility] Comment on above: Performed By: #### L 9000.0800 ####[facility] [address] [place], [address] pCO2 16.1 mmHg Invalid Interpretation Code 35-45 [facility] Comment on above: Performed By: #### L 9000.0800 ####[facility] [address] [place], [address] PEEP 5 Normal [facility] Comment on above: Performed By: #### L 9000.0800 ####[facility] [address] [place], [address] pH (Bld) 7.35 [pH] Normal 7.35-7.45 [facility] Comment on above: Performed By: #### L 9000.0800 ####[facility] [address] [place], [address] PO2 100 mmHG Normal 75-100 [facility] Comment on above: Performed By: #### L 9000.0800 ####[facility] [address] [place], [address] Read Back By Yes [facility] Comment on above: Performed By: #### L 9000.0800 ####[facility] [address] [place], [address] Gallardo [facility] Comment on above: Performed By: #### L 0.0800 ####[facility] [address] [place], [address] RR 16 Normal [facility] Comment on above: Performed By: #### L 0.0800 ####[facility] [address] [place], [address] SITE L Radial Normal [facility] Comment on above: Performed By: #### L 0.0800 ####[facility] [address] [place], [address] SO2 98 Normal 95-99 [facility] Comment on above: Performed By: #### L 0.0800 ####[facility] [address] [place], [address] Time Given 05:44:24 Normal [facility] Comment on above: Performed By: #### L 8999.0800 ####[facility] [address] [place], [address] Brain/Head without Contrasto n 05-02-2024 Brain/Head without Contrast Normal [facility] CBC W/Diff, Automatedon - Absolute Lymph 0.80 X10 3/uL Low 0.83-4.51 [facility] Comment on above: Performed By: #### L 501.2300, L501.5200, L100.0100 ####[facility] [address] [place], [address] Absolute Neut 11.5 X10 3/uL High 2.0-7.7 [facility] Comment on above: Performed By: #### L 501.2300, L501.5200, L100.0100 ####[facility] [address] [place], [address] Basophils/100 WBC (Bld) 0.1 % Normal 0-1 [facility] Comment on above: Performed By: #### L 501.2300, L501.5200, L100.0100 ####[facility] [address] [place], [address] Eosinophils/100 WBC (Bld) 0.2 % Normal 0-5 [facility] Comment on above: Performed By: #### L 501.2300, L501.5200, L100.0100 ####[facility] [address] [place], [address] Erythrocyte distribution width (RBC) [Ratio] 16.3 % High 11.6-14.6 [facility] Comment on above: Performed By: #### L 501.2300, L501.5200, L100.0100 ####[facility] [address] [place], [address] Hematocrit (Bld) [Volume fraction] 27.4 % Low 37-47 [facility] Comment on above: Performed By: #### L 501.2300, L501.5200, L100.0100 ####[facility] [address] [place], [address] Hemoglobin (Bld) [Mass/Vol] 8.7 g/dL Low 12.0-15.0 [facility] Comment on above: Performed By: #### L 501.2300, L501.5200, L100.0100 ####[facility] [address] [place], [address] IG% 0.700 Normal 0.0-0.9 [facility] Comment on above: Result Comment: IG% - Immature Granulocytes (promyelocytes, myelocytes andmetamyelocytes) > 1% indicates that a LEFT SHIFT is Present. Performed By: #### L 501.2300, L501.5200, L100.0100 ####[facility] [address] [place], [address] Lymphocytes/100 WBC (Bld) 5.8 % Low 19-41 [facility] Comment on above: Performed By: #### L 501.2300, L501.5200, L100.0100 ####[facility] [address] [place], [address] MCH (RBC) [Entitic mass] 31.8 pg Normal 27.0-32.0 [facility] Comment on above: Performed By: #### L 501.2300, L501.5200, L100.0100 ####[facility] [address] [place], [address] MCHC (RBC) [Mass/Vol] 31.8 g/dL Low 32-36 [facility] Comment on above: Performed By: #### L 501.2300, L501.5200, L100.0100 ####[facility] [address] [place], [address] MCV (RBC) [Entitic vol] 100.0 fL High 81-99 [facility] Comment on above: Performed By: #### L 501.2300, L501.5200, L100.0100 ####[facility] [address] [place], [address] Monocytes/100 WBC (Bld) 9.5 % Normal 0-10 [facility] Comment on above: Performed By: #### L 501.2300, L501.5200, L100.0100 ####[facility] [address] [place], [address] Neutrophils/100 WBC (Bld) 83.7 % High 47-70 [facility] Comment on above: Performed By: #### L 501.2300, L501.5200, L100.0100 ####[facility] [address] [place], [address] Nucleated RBC (Bld) [#/Vol] 0.5 10*3/uL Normal 0-5 [facility] Comment on above: Performed By: #### L 501.2300, L501.5200, L100.0100 ####[facility] [address] [place], [address] Platelet mean volume (Bld) [Entitic vol] 12.2 fL High 6.2-12.0 [facility] Comment on above: Performed By: #### L 501.2300, L501.5200, L100.0100 ####[facility] [address] [place], [address] Platelets (Bld) [#/Vol] 266 10*3/uL Normal 150-450 [facility] Comment on above: Performed By: #### L 501.2300, L501.5200, L100.0100 ####[facility] [address] [place], [address] RBC (Bld) [#/Vol] 2.74 10*6/uL Low 4.2-5.4 [facility] Comment on above: Performed By: #### L 501.2300, L501.5200, L100.0100 ####[facility] [address] [place], [address] RDW SD 59.3 fl High 35.1-43.9 [facility] Comment on above: Performed By: #### L 501.2300, L501.5200, L100.0100 ####[facility] [address] [place], [address] WBC (Bld) [#/Vol] 13.7 10*3/uL High 4.4-11.0 [facility] Comment on above: Performed By: #### L 501.2300, L501.5200, L100.0100 ####[facility] [address] [place], [address] CNPLuz Maria 05-02-2024 CNPN Telephone ([facility]) MARI LOPEZ ([id number]) 1940 F Date Time Provider Department 05/02/24 [facility] During your visit today, we recorded the following information about you: Olga Dillard RN 05/02/2024 9:25 AM Signed Friend (Alex) calls to let provider's office know that patient is currently at [facility] in the ICU for sepsis and [...] 24 hr tablet Take by mouth. - Trcxxxtxtqg-Rkaofkrhe-Pox C-Mn (GLUCOSAMINE CHONDROITIN MAXSTR) 500-400 mg cap Take 1 capsule by mouth three times daily. - COMPOUNDED PRESCRIPTION Stair lift - DAILY-LUISITO tablet TAKE 1 TABLET BY MOUTH ONCE DAILY. - jaajiwr-mgmvyzpdf-gozndlb D3 (CALCIUM 500+D) 500 mg(1,250mg) -200 unit [...] [1003] 05/07/2005 07/12/2021 INJURY TRUNK SITE NEC [[id number]] 01/16/2006 07/01/2007 Anemia in chronic kidney disease [...] acquired [E (more content not included)... Normal [facility] CXR for Line Placementon CXR for Line Placement Normal [facility] Consultation - Nephrologyon 05-02-2024 Consultation - Nephrology Normal [facility] Gram Stainon 05-02-2024 GS Acceptable Specimen? Yes (<25 Epithelial cells per/lpf) Gram Stain 1+ Gram positive cocci 2+ White Blood Cells No Epithelial cells Normal [facility] Comment on above: Performed By: #### M 100.2000, M100.2400 ####[facility] [address] [place], [address] International normalized rat io (INR) calculationOrdered By: Qian Albrecht on 05-02-2024 International normalized ratio (INR) calculation 1.3 [facility] Magnesiumon 05-02-2024 Magnesium [Mass/Vol] 1.7 mg/dL Normal 1.6-2.6 [facility] Comment on above: Order Comment: FOR B MP SEE 0127:C87 Performed By: #### L 501.2300, L501.5200, L100.0100 ####[facility] [address] [place], [address] Magnesium [Mass/Vol] 2.2 mg/dL Normal 1.6-2.6 [facility] Comment on above: Performed By: #### L 501.2300, L501.5200 ####[facility] [address] [place], [address] No Panel InformationOrdered By: Bernarda Becerril on 05-02-2024 05:44:[address] [facility] [address] Gallardo [facility] Yes [facility] Partial Thromboplast Timeon 05-02-2024 aPTT Coag (Bld) [Time] 39.9 s High 24.1-36.2 [facility] Comment on above: Performed By: #### L 300.3900, L300.4310 ####[facility] [address] [place], [address] aPTT Coag (Bld) [Time] 30.1 s Normal 24.1-36.2 [facility] Comment on above: Performed By: #### L 300.3900, L300.4310 ####[facility] [address] [place], [address] Phosphoruson 05-02-2024 Phosphate [Mass/Vol] 7.9 mg/dL High 2.5-4.9 [facility] Comment on above: Order Comment: FOR B MP SEE 0127:C87 Performed By: #### L 501.2300, L501.5200, L100.0100 ####[facility] [address] [place], [address] Phosphate [Mass/Vol] 9.9 mg/dL Invalid Interpretation Code 2.5-4.9 [facility] Comment on above: Performed By: #### L 501.2300, L501.5200 ####[facility] [address] [place], [address] Procedure Reporton Procedure Report Normal [facility] Prothrombin Time w/INRon INR Coag (PPP) [Relative time] 1.3 {INR} Normal [facility] Comment on above: Performed By: #### L 300.3900, L300.4310 ####[facility] [address] [place], [address] PT Coag (PPP) [Time] 16.1 s High 11.7-14.9 [facility] Comment on above: Performed By: #### L 300.3900, L300.4310 ####[facility] [address] [place], [address] INR Coag (PPP) [Relative time] 1.2 {INR} Normal [facility] Comment on above: Performed By: #### L 300.3900, L300.4310 ####[facility] [address] [place], [address] PT Coag (PPP) [Time] 15.5 s High 11.7-14.9 [facility] Comment on above: Performed By: #### L 300.3900, L300.4310 ####[facility] [address] [place], [address] Prothrombin timeOrdered By: Qian Albrecht on 05-02-2024 Prothrombin time 16.1 SECONDS High 11.7-14.9 [facility] Renal Profileon 05-02-2024 Albumin [Mass/Vol] 1.8 g/dL Low 3.2-5.0 [facility] Comment on above: Performed By: #### L 500.3600 ####[facility] [address] [place], [address] BUN/CRE 19.6 RATIO Normal 10-20 [facility] Comment on above: Performed By: #### L 500.3600 ####[facility] [address] [place], [address] CA,Total 7.1 mg/dL Low 8.5-10.1 [facility] Comment on above: Performed By: #### L 500.3600 ####[facility] [address] [place], [address] Chloride [Moles/Vol] 112 mmol/L High 98-107 [facility] Comment on above: Performed By: #### L 500.3600 ####[facility] [address] [place], [address] CO2 [Moles/Vol] 19.0 mmol/L Low 21.0-32.0 [facility] Comment on above: Performed By: #### L 500.3600 ####[facility] [address] [place], [address] Creatinine [Mass/Vol] 4.91 mg/dL High 0.55-1.02 [facility] Comment on above: Result Comment: The validity of the calculated GFR GFRAA in patients over70 years has not been determined. Clinical correlation isessential. Performed By: #### L 500.3600 ####[facility] [address] [place], [address] ECRCL 10.10 ml/min Normal [facility] Comment on above: Performed By: #### L 500.3600 ####[facility] [address] [place], [address] EST GFR - AA 11 mL/min Low >60 [facility] Comment on above: Result Comment: Afri can Japanese GFR Calc Performed By: #### L 500.3600 ####[facility] [address] [place], [address] GFR/1.73 sq M.predicted among non-blacks MDRD (S/P/Bld) [Vol rate/Area] 9 mL/min/{1.73_m2} Low >60 [facility] Comment on above: Result Comment: Non- GFR Calc Performed By: #### L 500.3600 ####[facility] [address] [place], [address] Glucose [Mass/Vol] 126 mg/dL High 74-106 [facility] Comment on above: Result Comment: Fast ing Glucose result greater than or equal to 126 mg/dLsuggests DIABETES MELLITUS per A.D.A. criteria. Performed By: #### L 500.3600 ####[facility] [address] [place], [address] Phosphate [Mass/Vol] 4.5 mg/dL Normal 2.5-4.9 [facility] Comment on above: Performed By: #### L 500.3600 ####[facility] [address] [place], [address] Potassium [Moles/Vol] 3.4 mmol/L Low 3.5-5.1 [facility] Comment on above: Performed By: #### L 500.3600 ####[facility] [address] [place], [address] Sodium [Moles/Vol] 142 mmol/L Normal 136-145 [facility] Comment on above: Performed By: #### L 500.3600 ####[facility] [address] [place], [address] Urea nitrogen [Mass/Vol] 96 mg/dL High 7-18 [facility] Comment on above: Performed By: #### L 500.3600 ####[facility] [address] [place], [address] Albumin [Mass/Vol] 1.9 g/dL Low 3.2-5.0 [facility] Comment on above: Performed By: #### L 500.3600 ####[facility] [address] [place], [address] BUN/CRE 18.5 RATIO Normal 10-20 [facility] Comment on above: Performed By: #### L 500.3600 ####[facility] [address] [place], [address] CA,Total 7.0 mg/dL Low 8.5-10.1 [facility] Comment on above: Performed By: #### L 500.3600 ####[facility] [address] [place], [address] Chloride [Moles/Vol] 113 mmol/L High 98-107 [facility] Comment on above: Performed By: #### L 500.3600 ####[facility] [address] [place], [address] CO2 [Moles/Vol] 18.0 mmol/L Low 21.0-32.0 [facility] Comment on above: Performed By: #### L 500.3600 ####[facility] [address] [place], [address] Creatinine [Mass/Vol] 5.68 mg/dL High 0.55-1.02 [facility] Comment on above: Result Comment: The validity of the calculated GFR GFRAA in patients over70 years has not been determined. Clinical correlation isessential. Performed By: #### L 500.3600 ####[facility] [address] [place], [address] ECRCL 8.73 ml/min Normal [facility] Comment on above: Performed By: #### L 500.3600 ####[facility] [address] [place], [address] EST GFR - AA 9 mL/min Low >60 [facility] Comment on above: Result Comment: Afri can Japanese GFR Calc Performed By: #### L 500.3600 ####[facility] [address] [place], [address] GFR/1.73 sq M.predicted among non-blacks MDRD (S/P/Bld) [Vol rate/Area] 8 mL/min/{1.73_m2} Low >60 [facility] Comment on above: Result Comment: Non- GFR Calc Performed By: #### L 500.3600 ####[facility] [address] [place], [address] Glucose [Mass/Vol] 153 mg/dL High 74-106 [facility] Comment on above: Result Comment: Fast ing Glucose result greater than or equal to 126 mg/dLsuggests DIABETES MELLITUS per A.D.A. criteria. Performed By: #### L 500.3600 ####[facility] [address] [place], [address] Phosphate [Mass/Vol] 5.1 mg/dL High 2.5-4.9 [facility] Comment on above: Performed By: #### L 500.3600 ####[facility] [address] [place], [address] Potassium [Moles/Vol] 3.6 mmol/L Normal 3.5-5.1 [facility] Comment on above: Performed By: #### L 500.3600 ####[facility] [address] [place], [address] Sodium [Moles/Vol] 142 mmol/L Normal 136-145 [facility] Comment on above: Performed By: #### L 500.3600 ####[facility] [address] [place], [address] Urea nitrogen [Mass/Vol] 105 mg/dL Invalid Interpretation Code 7-18 [facility] Comment on above: Result Comment: Crit ical Result(s) Called at: 15:14:16 05/02/2024 by: Maye Johnson RN (ICU). Results read back by same. Performed By: #### L 500.3600 ####[facility] [address] [place], [address] Albumin [Mass/Vol] 2.3 g/dL Low 3.2-5.0 [facility] Comment on above: Performed By: #### L 500.3600 ####[facility] [address] [place], [address] BUN/CRE 19.4 RATIO Normal 10-20 [facility] Comment on above: Performed By: #### L 500.3600 ####[facility] [address] [place], [address] CA,Total 7.3 mg/dL Low 8.5-10.1 [facility] Comment on above: Performed By: #### L 500.3600 ####[facility] [address] [place], [address] Chloride [Moles/Vol] 118 mmol/L High 98-107 [facility] Comment on above: Performed By: #### L 500.3600 ####[facility] [address] [place], [address] CO2 [Moles/Vol] 8.0 mmol/L Invalid Interpretation Code 21.0-32.0 [facility] Comment on above: Result Comment: Crit ical Result(s) Called at: 04:31:10 05/02/2024 by:DEEJAY SOLIMAN TO KEVIN MARIA. Results read back by same. Performed By: #### L 500.3600 ####[facility] [address] [place], [address] Creatinine [Mass/Vol] 7.23 mg/dL High 0.55-1.02 [facility] Comment on above: Result Comment: The validity of the calculated GFR GFRAA in patients over70 years has not been determined. Clinical correlation isessential. Performed By: #### L 500.3600 ####[facility] [address] [place], [address] ECRCL 6.75 ml/min Normal [facility] Comment on above: Performed By: #### L 500.3600 ####[facility] [address] [place], [address] EST GFR - AA 7 mL/min Low >60 [facility] Comment on above: Result Comment: Afri can Japanese GFR Calc Performed By: #### L 500.3600 ####[facility] [address] [place], [address] GFR/1.73 sq M.predicted among non-blacks MDRD (S/P/Bld) [Vol rate/Area] 6 mL/min/{1.73_m2} Low >60 [facility] Comment on above: Result Comment: Non- GFR Calc Performed By: #### L 500.3600 ####[facility] [address] [place], [address] Glucose [Mass/Vol] 191 mg/dL High 74-106 [facility] Comment on above: Result Comment: Fast ing Glucose result greater than or equal to 126 mg/dLsuggests DIABETES MELLITUS per A.D.A. criteria. Performed By: #### L 500.3600 ####[facility] [address] [place], [address] Phosphate [Mass/Vol] 8.1 mg/dL High 2.5-4.9 [facility] Comment on above: Performed By: #### L 500.3600 ####[facility] [address] [place], [address] Potassium [Moles/Vol] 4.0 mmol/L Normal 3.5-5.1 [facility] Comment on above: Performed By: #### L 500.3600 ####[facility] [address] [place], [address] Sodium [Moles/Vol] 145 mmol/L Normal 136-145 [facility] Comment on above: Performed By: #### L 500.3600 ####[facility] [address] [place], [address] Urea nitrogen [Mass/Vol] 140 mg/dL Invalid Interpretation Code 7-18 [facility] Comment on above: Result Comment: Crit ical Result(s) Called at: 04:31:41 05/02/2024 by:DEEJAY SOLIMAN TO KEVIN MARIA. Results read back by same. Performed By: #### L 500.3600 ####[facility] [address] [place], [address] Thyroid Stim Hormone (TSH)on 05-02-2024 TSH 7.150 uIU/mL High 0.358-3.74 0 [facility] Comment on above: Performed By: #### L 501.9520 ####[facility] [address] [place], [address] Venous Blood Gason 5 HCO3 (Bld) [Moles/Vol] 4 mmol/L Low 22-26 [facility] Comment on above: Performed By: #### L 9000.0810 ####[facility] [address] [place], [place], [id number] aPTT Coag (PPP) [Time]Ordere d By: Qian Albrecht on 05-02-2024 Activated partial thromboplastin time (aPTT) in platelet poor plasma by coagulation a 39.9 Seconds High 24.1-36.2 [facility] 12 Lead EKGon 05-01-2024 12 Lead EKG Normal [facility] ALP [Catalytic activity/Vol] Ordered By: Alexisneptali Friend on 05-01-2024 Serum or plasma alkaline phosphatase measurement 97 U/L 45-117 [facility] ALT [Catalytic activity/Vol] Ordered By: Alexisneptali Friend on 05-01-2024 Serum or plasma alanine aminotransferase (ALT) measurement 18 U/L 13-56 [facility] Albumin to globulin ratioOrd ered By: Aelxisneptali Friend on 05-01-2024 Albumin to globulin ratio 0.8 RATIO Low 0.9-2.4 [facility] Bacteria LM.HPF (Urine sed) [#/Area]Ordered By: Alexis Friend on 05-01-2024 Urine sediment bacteria count by microscopy (number/high power field) 3+ /hpf None Seen [facility] Base excess Calc (BldV) [Mol es/Vol]Ordered By: Alexis Friend on 05-01-2024 Venous blood base excess measurement -27 mmol/L Low -1.0-3.5 [facility] Basic Metabolic Profile (BMP )on 05-01-2024 BUN/CRE 19.3 RATIO Normal 10-20 [facility] Comment on above: Performed By: #### L 500.2500 ####[facility] [address] [facility] [place], [address] CA,Total 7.5 mg/dL Low 8.5-10.1 [facility] Comment on above: Performed By: #### L 500.2500 ####[facility] [address] [facility] [address] [place], [place], [id number] Chloride [Moles/Vol] 122 mmol/L High 98-107 [facility] Comment on above: Performed By: #### L 500.2500 ####[facility] [address] [place], [address] CO2 [Moles/Vol] 6.0 mmol/L Invalid Interpretation Code 21.0-32.0 [facility] Comment on above: Result Comment: Crit ical Result(s) Called at: 22:02:26 05/01/2024 by: CARLITOS. Results read back by Oumou PATRICK Performed By: #### L 500.2500 ####[facility] [address] [place], [address] Creatinine [Mass/Vol] 7.48 mg/dL Invalid Interpretation Code 0.55-1.02 [facility] Comment on above: Result Comment: Crit ical Result(s) Called at: 22:03:07 05/01/2024 by: CARLITOS. Results read back by EDNAThe validity of the calculated GFR GFRAA in patients over70 years has not been determined. Clinical correlation isessential. Performed By: #### L 500.2500 ####[facility] [address] [place], [address] ECRCL 6.52 ml/min Normal [facility] Comment on above: Performed By: #### L 500.2500 ####[facility] [address] [place], [address] EST GFR - AA 7 mL/min Low >60 [facility] Comment on above: Result Comment: Afri can Japanese GFR Calc Performed By: #### L 500.2500 ####[facility] [address] [place], [address] GAP 15 Normal 5-15 [facility] Comment on above: Performed By: #### L 500.2500 ####[facility] [address] [place], [address] GFR/1.73 sq M.predicted among non-blacks MDRD (S/P/Bld) [Vol rate/Area] 6 mL/min/{1.73_m2} Low >60 [facility] Comment on above: Result Comment: Non- GFR Calc Performed By: #### L 500.2500 ####[facility] [address] [place], [address] Glucose [Mass/Vol] 144 mg/dL High 74-106 [facility] Comment on above: Result Comment: Fast ing Glucose result greater than or equal to 126 mg/dLsuggests DIABETES MELLITUS per A.D.A. criteria. Performed By: #### L 500.2500 ####[facility] [address] [place], [address] Potassium [Moles/Vol] 5.1 mmol/L Normal 3.5-5.1 [facility] Comment on above: Performed By: #### L 500.2500 ####[facility] [address] [place], [address] Sodium [Moles/Vol] 143 mmol/L Normal 136-145 [facility] Comment on above: Performed By: #### L 500.2500 ####[facility] [address] [place], [address] Urea nitrogen [Mass/Vol] 144 mg/dL Invalid Interpretation Code 7-18 [facility] Comment on above: Result Comment: Crit ical Result(s) Called at: 22:02:51 05/01/2024 by: CARLITOS. Results read back by Oumou PATRICK Performed By: #### L 500.2500 ####[facility] [address] [place], [address] BUN/CRE 20.2 RATIO High 10-20 [facility] Comment on above: Performed By: #### L 500.2500 ####[facility] [address] [place], [address] CA,Total 7.7 mg/dL Low 8.5-10.1 [facility] Comment on above: Performed By: #### L 500.2500 ####[facility] [address] [place], [address] Chloride [Moles/Vol] 124 mmol/L High 98-107 [facility] Comment on above: Performed By: #### L 500.2500 ####[facility] [address] [place], [address] CO2 [Moles/Vol] 5.0 mmol/L Invalid Interpretation Code 21.0-32.0 [facility] Comment on above: Result Comment: Crit ical Result(s) Called at: 16:28:22 05/01/2024 by: CARLITOS. Results read back by Ilana Alarcon Performed By: #### L 500.2500 ####[facility] [address] [place], [address] Creatinine [Mass/Vol] 7.33 mg/dL High 0.55-1.02 [facility] Comment on above: Result Comment: The validity of the calculated GFR GFRAA in patients over70 years has not been determined. Clinical correlation isessential. Performed By: #### L 500.2500 ####[facility] [address] [place], [address] ECRCL 6.59 ml/min Normal [facility] Comment on above: Performed By: #### L 500.2500 ####[facility] [address] [place], [address] EST GFR - AA 7 mL/min Low >60 [facility] Comment on above: Result Comment: Afri can Japanese GFR Calc Performed By: #### L 500.2500 ####[facility] [address] [place], [address] GAP 15 Normal 5-15 [facility] Comment on above: Performed By: #### L 500.2500 ####[facility] [address] [place], [address] GFR/1.73 sq M.predicted among non-blacks MDRD (S/P/Bld) [Vol rate/Area] 6 mL/min/{1.73_m2} Low >60 [facility] Comment on above: Result Comment: Non- GFR Calc Performed By: #### L 500.2500 ####[facility] [address] [place], [place], [id number] Glucose [Mass/Vol] 82 mg/dL Normal 74-106 [facility] Comment on above: Performed By: #### L 500.2500 ####[facility] [address] [place], [address] Potassium [Moles/Vol] 5.4 mmol/L High 3.5-5.1 [facility] Comment on above: Performed By: #### L 500.2500 ####[facility] [address] [place], [address] Sodium [Moles/Vol] 144 mmol/L Normal 136-145 [facility] Comment on above: Performed By: #### L 500.2500 ####[facility] [address] [place], [address] Urea nitrogen [Mass/Vol] 148 mg/dL Invalid Interpretation Code 7-18 [facility] Comment on above: Result Comment: Crit ical Result(s) Called at: 16:28:46 05/01/2024 by: CARLITOS. Results read back by Ilana Alarcon Performed By: #### L 500.2500 ####[facility] [address] [place], [place], [id number] Bilirubin Test strip Ql (U)O rdered By: Alexis Friend on 05-01-2024 Urine total bilirubin detection by test strip 1 mg/dL High Negative [facility] Bilirubin, totalOrdered By: Alexis Friend on 05-01-2024 Bilirubin, total 0.30 mg/dL 0.20-1.00 [facility] Blood Gases by CPSon 025 ALMA DELIA TEST N/A Normal [facility] Comment on above: Performed By: #### L 9000.0800 ####[facility] [address] [place], [address] Base excess Calc (Bld) [Moles/Vol] -26 mmol/L Low -2 to +2 [facility] Comment on above: Performed By: #### L 9000.0800 ####[facility] [address] [place], [address] Blood Gas Type ART Normal [facility] Comment on above: Performed By: #### L 9000.0800 ####[facility] [address] [place], [address] FI02 30.0 Normal [facility] Comment on above: Performed By: #### L 9000.0800 ####[facility] [address] [place], [address] HCO3 (Bld) [Moles/Vol] 4.0 mmol/L Low 22-26 [facility] Comment on above: Performed By: #### L 9000.0800 ####[facility] [address] [place], [address] Mode AC/PC Normal [facility] Comment on above: Performed By: #### L 9000.0800 ####[facility] [address] [place], [address] O2 Delivery Dev Adult Vent Normal [facility] Comment on above: Performed By: #### L 9000.0800 ####[facility] [address] [place], [address] pCO2 12.9 mmHg Invalid Interpretation Code 35-45 [facility] Comment on above: Performed By: #### L 9000.0800 ####[facility] [address] [place], [address] PEEP 5 Normal [facility] Comment on above: Performed By: #### L 9000.0800 ####[facility] [address] [place], [address] pH (Bld) 7.10 [pH] Invalid Interpretation Code 7.35-7.45 [facility] Comment on above: Performed By: #### L 9000.0800 ####[facility] [address] [place], [address] PO2 144 mmHG High 75-100 [facility] Comment on above: Performed By: #### L 9000.0800 ####[facility] [address] [place], [address] Read Back By Yes [facility] Comment on above: Performed By: #### L 9000.0800 ####[facility] [address] [place], [address] Gallardo [facility] Comment on above: Performed By: #### L 9000.0800 ####[facility] [address] [place], [address] [address] 16 Normal [facility] Comment on above: Performed By: #### L 9000.0800 ####[facility] [address] [place], [address] SITE L Radial Normal [facility] Comment on above: Performed By: #### L 9000.0800 ####[facility] [address] [place], [address] SO2 98 Normal 95-99 [facility] Comment on above: Performed By: #### L 9000.0800 ####[facility] [address] [place], [address] Time Given 22:51:06 [facility] Comment on above: Performed By: #### L 0.0800 ####[facility] [address] [place], [address] TOTAL CO2 < 5 Normal [facility] Comment on above: Performed By: #### L 0.0800 ####[facility] [address] [place], [address] ALMA DELIA TEST N/A Normal [facility] Comment on above: Performed By: #### L 0.0800 ####[facility] [address] [place], [address] Base excess Calc (Bld) [Moles/Vol] -29 mmol/L Low -2 to +2 [facility] Comment on above: Performed By: #### L 0.0800 ####[facility] [address] [place], [address] Blood Gas Type ART Normal [facility] Comment on above: Performed By: #### L 8999.0800 ####[facility] [address] [place], [address] CO2 [Moles/Vol] 5 mmol/L [facility] Comment on above: Performed By: #### L 0.0800 ####[facility] [address] [place], [address] Comment AC VC 14 450 +5 45% Normal [facility] Comment on above: Performed By: #### L 8999.0800 ####[facility] [address] [place], [address] FI02 45.0 Normal [facility] Comment on above: Performed By: #### L 0.0800 ####[facility] [address] [place], [address] HCO3 (Bld) [Moles/Vol] 4.4 mmol/L Low 22-26 [facility] Comment on above: Performed By: #### L 9000.0800 ####[facility] [address] [place], [address] Mode AC Normal [facility] Comment on above: Performed By: #### L 9000.0800 ####[facility] [address] [place], [address] O2 Delivery Dev Adult Vent Normal [facility] Comment on above: Performed By: #### L 9000.0800 ####[facility] [address] [place], [address] pCO2 22.2 mmHg Low 35-45 [facility] Comment on above: Performed By: #### L 9000.0800 ####[facility] [address] [place], [address] pH (Bld) 6.90 [pH] Invalid Interpretation Code 7.35-7.45 [facility] Comment on above: Performed By: #### L 9000.0800 ####[facility] [address] [place], [address] PO2 172 mmHG High 75-100 [facility] Comment on above: Performed By: #### L 9000.0800 ####[facility] [address] [place], [address] Read Back By Yes Normal [facility] Comment on above: Performed By: #### L 9000.0800 ####[facility] [address] [place], [address] SITE R Brach Normal [facility] Comment on above: Performed By: #### L 9000.0800 ####[facility] [address] [place], [address] SO2 98 Normal 95-99 [facility] Comment on above: Performed By: #### L 9000.0800 ####[facility] [address] [place], [address] Blood cultureOrdered By: Alexis Friend on 05-01-2024 Blood culture No growth in 5 days. [facility] Blood culture No growth in 5 days. [facility] CBC W/Diff, Automatedon 04-07 Absolute Lymph 1.26 X10 3/uL Normal 0.83-4.51 [facility] Comment on above: Performed By: #### M 200.1000, L500.4050, L100.0100, L300.3900, L503.6005 ####[facility] [address] [place], [address] Absolute Neut 14.2 X10 3/uL High 2.0-7.7 [facility] Comment on above: Performed By: #### M 200.1000, L500.4050, L100.0100, L300.3900, L503.6005 ####[facility] [address] [place], [address] Basophils/100 WBC (Bld) 0.3 % Normal 0-1 [facility] Comment on above: Performed By: #### M 200.1000, L500.4050, L100.0100, L300.3900, L503.6005 ####[facility] [address] [place], [address] Eosinophils/100 WBC (Bld) 0.4 % Normal 0-5 [facility] Comment on above: Performed By: #### M 200.1000, L500.4050, L100.0100, L300.3900, L503.6005 ####[facility] [address] [place], [address] Erythrocyte distribution width (RBC) [Ratio] 16.6 % High 11.6-14.6 [facility] Comment on above: Performed By: #### M 200.1000, L500.4050, L100.0100, L300.3900, L503.6005 ####[facility] [address] [place], [address] Hematocrit (Bld) [Volume fraction] 30.5 % Low 37-47 [facility] Comment on above: Performed By: #### M 200.1000, L500.4050, L100.0100, L300.3900, L503.6005 ####[facility] [address] [place], [address] Hemoglobin (Bld) [Mass/Vol] 9.7 g/dL Low 12.0-15.0 [facility] Comment on above: Performed By: #### M 200.1000, L500.4050, L100.0100, L300.3900, L503.6005 ####[facility] [address] [place], [address] IG% 1.100 High 0.0-0.9 [facility] Comment on above: Result Comment: IG% - Immature Granulocytes (promyelocytes, myelocytes andmetamyelocytes) > 1% indicates that a LEFT SHIFT is Present. Performed By: #### M 200.1000, L500.4050, L100.0100, L300.3900, L503.6005 ####[facility] [address] [place], [address] Lymphocytes/100 WBC (Bld) 7.4 % Low 19-41 [facility] Comment on above: Performed By: #### M 200.1000, L500.4050, L100.0100, L300.3900, L503.6005 ####[facility] [address] [place], [address] MCH (RBC) [Entitic mass] 32.3 pg High 27.0-32.0 [facility] Comment on above: Performed By: #### M 200.1000, L500.4050, L100.0100, L300.3900, L503.6005 ####[facility] [address] [place], [address] MCHC (RBC) [Mass/Vol] 31.8 g/dL Low 32-36 [facility] Comment on above: Performed By: #### M 200.1000, L500.4050, L100.0100, L300.3900, L503.6005 ####[facility] [address] [place], [address] MCV (RBC) [Entitic vol] 101.7 fL High 81-99 [facility] Comment on above: Performed By: #### M 200.1000, L500.4050, L100.0100, L300.3900, L503.6005 ####[facility] [address] [place], [address] Monocytes/100 WBC (Bld) 7.5 % Normal 0-10 [facility] Comment on above: Performed By: #### M 200.1000, L500.4050, L100.0100, L300.3900, L503.6005 ####[facility] [address] [place], [address] Neutrophils/100 WBC (Bld) 83.3 % High 47-70 [facility] Comment on above: Performed By: #### M 200.1000, L500.4050, L100.0100, L300.3900, L503.6005 ####[facility] [address] [place], [address] Nucleated RBC (Bld) [#/Vol] 0.4 10*3/uL Normal 0-5 [facility] Comment on above: Performed By: #### M 200.1000, L500.4050, L100.0100, L300.3900, L503.6005 ####[facility] [address] [place], [address] Platelet mean volume (Bld) [Entitic vol] 12.8 fL High 6.2-12.0 [facility] Comment on above: Performed By: #### M 200.1000, L500.4050, L100.0100, L300.3900, L503.6005 ####[facility] [address] [place], [address] Platelets (Bld) [#/Vol] 286 10*3/uL Normal 150-450 [facility] Comment on above: Performed By: #### M 200.1000, L500.4050, L100.0100, L300.3900, L503.6005 ####[facility] [address] [place], [address] RBC (Bld) [#/Vol] 3.00 10*6/uL Low 4.2-5.4 [facility] Comment on above: Performed By: #### M 200.1000, L500.4050, L100.0100, L300.3900, L503.6005 ####[facility] [address] [place], [address] RDW SD 61.4 fl High 35.1-43.9 [facility] Comment on above: Performed By: #### M 200.1000, L500.4050, L100.0100, L300.3900, L503.6005 ####[facility] [address] [place], [address] WBC (Bld) [#/Vol] 17.0 10*3/uL High 4.4-11.0 [facility] Comment on above: Performed By: #### M 200.1000, L500.4050, L100.0100, L300.3900, L503.6005 ####[facility] [address] [place], [address] CDIFF (PCR)on 05-01-2024 CDIFF Is the patient recei ving laxatives? N Pending 027 027 NAP1-B1 Presumptive Negative *for epidemiolologic???use C. Diff PCR Negative- No toxigenic C. Diff Detected Normal [facility] Comment on above: Performed By: #### M 100.6796 ####[facility] [address] [place], [address] CO2 (BldV) [Moles/Vol]Ordere d By: Alexis Friend on 05-01-2024 Venous blood total carbon dioxide measurement < 5 mmol/L Low 23-33 [facility] CO2 (BldV) [Partial pressure ]Ordered By: Alexis Friend on 05-01-2024 Venous blood partial pressure of carbon dioxide measurement 14.1 mmHg Low 41-51 [facility] CPK Total, Creatine Kinaseon 05-01-2024 CPK TOTAL 487 U/L High 26-192 [facility] Comment on above: Order Comment: Comme nts: DC when propofol is d/c'dDC when propofol is d/c'd Performed By: #### L 501.3620, L501.5000 ####[facility] [address] [place], [place], [id number] Chest 1 View (Portable)on Chest 1 View (Portable) Normal [facility] Chest 1 View (Portable) Normal [facility] Clarity (U)Ordered By: Alexis G allo on 05-01-2024 Urine clarity Cloudy Clear [facility] Color (U)Ordered By: Alexis Gal lo on 05-01-2024 Urine color determination Yellow Yellow [facility] Comprehensive Metabolic Prof ilon 05-01-2024 Albumin [Mass/Vol] 2.8 g/dL Low 3.2-5.0 [facility] Comment on above: Order Comment: Blood cultures x2, from two different sites Performed By: #### M 200.1000, L500.4050, L100.0100, L300.3900, L503.6005 ####[facility] [address] [place], [address] Albumin/Globulin [Mass ratio] 0.8 {ratio} Low 0.9-2.4 [facility] Comment on above: Order Comment: Blood cultures x2, from two different sites Performed By: #### M 200.1000, L500.4050, L100.0100, L300.3900, L503.6005 ####[facility] [address] [place], [address] ALK P 97 U/L Normal 45-117 [facility] Comment on above: Order Comment: Blood cultures x2, from two different sites Performed By: #### M 200.1000, L500.4050, L100.0100, L300.3900, L503.6005 ####[facility] [address] [place], [address] ALT [Catalytic activity/Vol] 18 U/L Normal 13-56 [facility] Comment on above: Order Comment: Blood cultures x2, from two different sites Performed By: #### M 200.1000, L500.4050, L100.0100, L300.3900, L503.6005 ####[facility] [address] [place], [address] AST [Catalytic activity/Vol] 22 U/L Normal 15-37 [facility] Comment on above: Order Comment: Blood cultures x2, from two different sites Performed By: #### M 200.1000, L500.4050, L100.0100, L300.3900, L503.6005 ####[facility] [address] [place], [address] Bilirubin [Mass/Vol] 0.30 mg/dL Normal 0.20-1.00 [facility] Comment on above: Order Comment: Blood cultures x2, from two different sites Result Comment: For patients on eltrombopag therapy, use of Dimension [place] TBIL is not recommended. Performed By: #### M 200.1000, L500.4050, L100.0100, L300.3900, L503.6005 ####[facility] [address] [place], [address] BUN/CRE 19.9 RATIO Normal 10-20 [facility] Comment on above: Order Comment: Blood cultures x2, from two different sites Performed By: #### M 200.1000, L500.4050, L100.0100, L300.3900, L503.6005 ####[facility] [address] [place], [address] CA,Total 8.4 mg/dL Low 8.5-10.1 [facility] Comment on above: Order Comment: Blood cultures x2, from two different sites Performed By: #### M 200.1000, L500.4050, L100.0100, L300.3900, L503.6005 ####[facility] [address] [place], [address] Chloride [Moles/Vol] 121 mmol/L High 98-107 [facility] Comment on above: Order Comment: Blood cultures x2, from two different sites Performed By: #### M 200.1000, L500.4050, L100.0100, L300.3900, L503.6005 ####[facility] [address] [place], [address] CO2 [Moles/Vol] 4.0 mmol/L Invalid Interpretation Code 21.0-32.0 [facility] Comment on above: Order Comment: Blood cultures x2, from two different sites Result Comment: Crit ical Result(s) Called at: 13:35:09 05/01/2024 by: Maye to (). Results read back by same. Performed By: #### M 200.1000, L500.4050, L100.0100, L300.3900, L503.6005 ####[facility] [address] [place], [address] Creatinine [Mass/Vol] 7.93 mg/dL Invalid Interpretation Code 0.55-1.02 [facility] Comment on above: Order Comment: Blood cultures x2, from two different sites Result Comment: Crit ical Result(s) Called at: 13:35:09 05/01/2024 by: Maye to (). Results read back by same.The validity of the calculated GFR GFRAA in patients over70 years has not been determined. Clinical correlation isessential. Performed By: #### M 200.1000, L500.4050, L100.0100, L300.3900, L503.6005 ####[facility] [address] [place], [address] EST GFR - AA 6 mL/min Low >60 [facility] Comment on above: Order Comment: Blood cultures x2, from two different sites Result Comment: Afri can Japanese GFR Calc Performed By: #### M 200.1000, L500.4050, L100.0100, L300.3900, L503.6005 ####[facility] [address] [place], [address] GAP 18 High 5-15 [facility] Comment on above: Order Comment: Blood cultures x2, from two different sites Performed By: #### M 200.1000, L500.4050, L100.0100, L300.3900, L503.6005 ####[facility] [address] [place], [address] GFR/1.73 sq M.predicted among non-blacks MDRD (S/P/Bld) [Vol rate/Area] 5 mL/min/{1.73_m2} Low >60 [facility] Comment on above: Order Comment: Blood cultures x2, from two different sites Result Comment: Non- GFR Calc Performed By: #### M 200.1000, L500.4050, L100.0100, L300.3900, L503.6005 ####[facility] [address] [place], [address] Globulin (S) [Mass/Vol] 3.7 g/dL Normal 2.2-4.2 [facility] Comment on above: Order Comment: Blood cultures x2, from two different sites Performed By: #### M 200.1000, L500.4050, L100.0100, L300.3900, L503.6005 ####[facility] [address] [place], [address] Glucose [Mass/Vol] 69 mg/dL Low 74-106 [facility] Comment on above: Order Comment: Blood cultures x2, from two different sites Performed By: #### M 200.1000, L500.4050, L100.0100, L300.3900, L503.6005 ####[facility] [address] [place], [address] Potassium [Moles/Vol] 6.1 mmol/L Invalid Interpretation Code 3.5-5.1 [facility] Comment on above: Order Comment: Blood cultures x2, from two different sites Result Comment: Crit ical Result(s) Called at: 13:35:09 05/01/2024 by: Maye to (). Results read back by same. Performed By: #### M 200.1000, L500.4050, L100.0100, L300.3900, L503.6005 ####[facility] [address] [place], [address] Sodium [Moles/Vol] 142 mmol/L Normal 136-145 [facility] Comment on above: Order Comment: Blood cultures x2, from two different sites Performed By: #### M 200.1000, L500.4050, L100.0100, L300.3900, L503.6005 ####[facility] [address] [place], [address] T PROT 6.5 g/dL Normal 6.4-8.2 [facility] Comment on above: Order Comment: Blood cultures x2, from two different sites Performed By: #### M 200.1000, L500.4050, L100.0100, L300.3900, L503.6005 ####[facility] [address] [place], [address] Urea nitrogen [Mass/Vol] 158 mg/dL Invalid Interpretation Code 7-18 [facility] Comment on above: Order Comment: Blood cultures x2, from two different sites Result Comment: Crit ical Result(s) Called at: 13:35:09 05/01/2024 by: Maye to (ER). Results read back by same. Performed By: #### M 200.1000, L500.4050, L100.0100, L300.3900, L503.6005 ####[facility] [address] [place], [place], [address] Consultation - Intensiviston 05-01-2024 Consultation - Cooker Sulfate Normal [facility] Emergency Department Summary on 05-01-2024 Emergency Department Summary Normal [facility] Epithelial cells.renal LM.HP F (Urine sed) [#/Area]Ordered By: Alexis Friend on 05-01-2024 Urine sediment renal epithelial cell count by microscopy (number/high power field) 25-50 SEEN /hpf 0-5 [facility] H AND P Exam - Hospitaliston 05-01-2024 H&P Exam - Hospitalist Normal [facility] Ketones Test strip Ql (U)Ord ered By: Alexis Friend on 05-01-2024 Urine ketones detection by test strip 5 mg/dl High Negative [facility] Lactic Acidon 05-01-2024 Lactate [Moles/Vol] 0.8 mmol/L Normal 0.4-1.9 [facility] Comment on above: Order Comment: Y Performed By: #### M 200.1000, L500.4050, L100.0100, L300.3900, L503.6005 ####[facility] [address] [place], [place], [id number] Lactic acid measurementOrder ed By: Alexis Friend on 05-01-2024 Lactic acid measurement 0.8 mmol/L 0.4-2.0 [facility] Legionella Antigen Urineon 0 05-01-2024 LEGU Normal [facility] Comment on above: Performed By: #### M 300.4500, M300.4600 ####[facility] [address] [facility] [place], [address] Leukocyte esterase Test stri p Ql (U)Ordered By: Alexis Friend on 05-01-2024 Urine leukocyte esterase detection by dipstick 500 /ul High Negative [facility] M100.678on 05-01-2024 M100.678 Pending SARS-CoV-2 (COVID 19) Negative INFLUENZA A Negative INFLUENZA B Negative RSV PCR Negative Normal [facility] Comment on above: Performed By: #### M 100.678 ####[facility] [address] [facility] [place], [place], [id number] Microorganism identified Cx Nom (Unsp spec)Ordered By: Bernarda Becerril on 05-01-2024 Microbial respiratory culture or Staphylococcus aureus isolated. [facility] Microscopic analysis of urin e for red blood cells (RBC)Ordered By: Alexis Friend on 05-01-2024 Microscopic analysis of urine for red blood cells (RBC) 5-10 SEEN /hpf 5-10 [facility] Mucus LM Ql (Urine sed)Order ed By: Alexis Friend on 05-01-2024 Mucus detection in urine sediment by light microscopy 0 SEEN /hpf [facility] Nitrite Test strip Ql (U)Ord ered By: Alexis Friend on 05-01-2024 Urine nitrite test by dipstick Negative Negative [facility] No Panel InformationOrdered By: Bernarda Becerril on 05-01-2024 AC VC 14 450 +5 45% [facility] No Panel InformationOrdered By: Alexis Friend on 05-01-2024 22 U/L 15-37 [facility] Oxygen (BldV) [Partial press ure]Ordered By: Alexis Friend on 05-01-2024 Venous blood partial pressure of oxygen measurement 199 mmHg High 25-40 [facility] Partial Thromboplast Timeon 05-01-2024 aPTT Coag (d) [Time] 31.2 s Normal 24.1-36.2 [facility] Comment on above: Order Comment: REDRA W. PREVIOUS SPECIMEN REJECTED DUE TOSPECIMEN BEING HEMOLYZED. 05/01/24 1328 Pratik Lee. Performed By: #### L 300.3900, L300.4310 ####[facility] [address] [place], [address] Protein Test strip Ql (U)Ord ered By: Alexis Friend on 05-01-2024 Urine protein assay by test strip, semi-quantitative 100 mg/dl High Negative [facility] Prothrombin Time w/INRon INR Coag (PPP) [Relative time] 1.3 {INR} Normal [facility] Comment on above: Order Comment: REDRA W. PREVIOUS SPECIMEN REJECTED DUE TOSPECIMEN BEING HEMOLYZED. 05/01/248 Pratik Lee. Performed By: #### L 300.3900, L300.4310 ####[facility] [address] [place], [address] PT Coag (PPP) [Time] 16.2 s High 11.7-14.9 [facility] Comment on above: Order Comment: REDRA W. PREVIOUS SPECIMEN REJECTED DUE TOSPECIMEN BEING HEMOLYZED. 05/01/248 Pratik Lee. Performed By: #### L 300.3900, L300.4310 ####[facility] [address] [place], [address] INR Normal [facility] Comment on above: Result Comment: This specimen has been REJECTED due to Laboratory criteria:Hemolyzed.ED STAFF has been notified of need of recollection.05/01/24 1327 Pratik Lee Performed By: #### M 200.1000, L500.4050, L100.0100, L300.3900, L503.6005 ####[facility] [address] [place], [address] PROTIME Normal 11.7-14.9 [facility] Comment on above: Result Comment: This specimen has been REJECTED due to Laboratory criteria:Hemolyzed.ED STAFF has been notified of need of recollection.05/01/24 1327 Pratik Lee Performed By: #### M 200.1000, L500.4050, L100.0100, L300.3900, L503.6005 ####[facility] [address] [place], [address] RESPIRATORY PANEL MOLECULARo n 05-01-2024 RP PANEL Normal [facility] Comment on above: Performed By: #### M 100.638 ####[facility] [address] [place], [place], [address] Serum globulin measurementOr dered By: Alexis Friend on 05-01-2024 Serum globulin measurement 3.7 g/dL 2.2-4.2 [facility] Specific gravity (U) [Rel de nsity]Ordered By: Alexis Friend on 05-01-2024 Urine specific gravity measurement 1.020 1.002-1.03 0 [facility] Strep pneumoniae Antig(UR,CS F)on 05-01-2024 STPAG Normal [facility] Comment on above: Performed By: #### M 300.4500, M300.4600 ####[facility] [address] [place], [place], [address] Total creatine kinase measur ementOrdered By: Kin Young on 05-01-2024 Total creatine kinase measurement 487 U/L High 26-192 [facility] Total proteinOrdered By: Alexis Friend on 05-01-2024 Total protein 6.5 g/dL 6.4-8.2 [facility] Transitional cells LM Ql (Ur ine sed)Ordered By: Alexis Friend on 05-01-2024 Transitional cells detection in urine sediment by light microscopy 0-5 SEEN /hpf 0-5 [facility] Triglycerideson 05-01-2024 Triglyceride [Mass/Vol] 182 mg/dL Normal [facility] Comment on above: Order Comment: Comme nts: DC when propofol is d/c'dDC when propofol is d/c'd Result Comment: The drugs N-Acetylcysteine and Metamizole may falselydepress this assay.Serum Triglycerides Reference Interval Normal <150 mg/dL Borderline high 150 - 199 mg/dL High 200 - 499 mg/dL Very High > or = 500 mg/dL Performed By: #### L 501.3620, L501.5000 ####[facility] [address] [place], [address] Triglycerides measurementOrd ered By: Kin Young on 05-01-2024 Triglycerides measurement 182 mg/dL <199 [facility] Urinalysis, Completeon 05-01 BACTERIA 3+ /hpf Normal None Seen [facility] Comment on above: Order Comment: SUSAN TER SPECIMEN Performed By: #### M 100.2200, L400.0001 ####[facility] [address] [place], [address] EPI,RENAL 25-50 SEEN Normal 0-5 [facility] Comment on above: Order Comment: SUSAN TER SPECIMEN Performed By: #### M 100.2200, L400.0001 ####[facility] [address] [place], [address] EPI,SQUAMOUS 5-10 SEEN Normal 5-10 [facility] Comment on above: Order Comment: SUSAN TER SPECIMEN Performed By: #### M 100.2200, L400.0001 ####[facility] [address] [place], [address] EPI,TRANSITION 0-5 SEEN Normal 0-5 [facility] Comment on above: Order Comment: SSUAN TER SPECIMEN Performed By: #### M 100.2200, L400.0001 ####[facility] [address] [place], [address] RBC 5-10 SEEN Normal 0-5 [facility] Comment on above: Order Comment: SUSAN TER SPECIMEN Performed By: #### M 100.2200, L400.0001 ####[facility] [address] [place], [address] WBC 50-100 SEEN Normal 0-5 [facility] Comment on above: Order Comment: SUSAN TER SPECIMEN Performed By: #### M 100.2200, L400.0001 ####[facility] [address] [place], [address] Mucus Ql (Urine sed) 0 SEEN Normal [facility] Comment on above: Order Comment: SUSAN TER SPECIMEN Performed By: #### M 100.2200, L400.0001 ####[facility] [address] [place], [address] Urine blood detectionOrdered By: Alexis Friend on 05-01-2024 Urine blood detection 150 /ul High Negative [facility] Urine cultureOrdered By: Alexis Friend on 05-01-2024 Urine culture Escherichia coli Abnormal [facility] Urine glucose detectionOrder ed By: Alexis Friend on 05-01-2024 Urine glucose detection Normal mg/dl Normal [facility] Venous blood bicarbonate duke surementOrdered By: Alexis Friend on 05-01-2024 Venous blood bicarbonate measurement 4 mmol/L Low 22-26 [facility] Venous blood oxygen saturati on measurementOrdered By: Alexis Friend on 05-01-2024 Venous blood oxygen saturation measurement 99 % High 50-70 [facility] White blood cell countOrdere d By: Alexis Friend on 05-01-2024 White blood cell count 50-100 SEEN /hpf 0-5 [facility] pH (BldV)Ordered By: Alexis pardo on 05-01-2024 Venous blood pH measurement 7.02 Low 7.32-7.42 [facility] pH (U)Ordered By: Alexis Friend on 05-01-2024 Urine pH 5.0 5.0 - 8.0 [facility] CNOVon 03-16-2024 CNOV Office Visit (FAMPWS ) MARI LOPEZ ([id number]) 1940 F Date Time Provider Department 03/16/24 11:20 AM MIRYAM OROZCO During your visit today, we recorded the following information about you: Pulse Respiration Blood pressure Weight 56/minute 16/minute 110/66 104.8 kg Miryam Orozco APRN.[employer] 03/16/2024 11:39 AM Addendum Have consult with endocrinology, Dr. Cowart at [facility] to discuss thyroid and elevated PTH. [...] resume your usual activities immediately. Miryam Orozco APRN.CJ 03/16/2024 4:44 PM Signed This is a 83 year old female who presents today with: No chief complaint on file. HISTORY OF PRESENT ILLNESS: Mari Lopez is a 83 year old female. No chief complaint on file. 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 Which facility: [facility] Date of visit: 02/25/2024-03/02/2024 Diagnosis: S/P [...] study ordered for 03/04/2024, will follow-up with [facility] pulmonary medicine to go over results. Discharge with PT at [facility]. Instructed to follow-up with surgeon, Dr. Carson. Placed on doxycycline due to arm pain to cover for possible cellulitis where IV was placed. Venous Doppler was negative for any thrombosis in the arm. Needs to complete bone density. Current symptoms: Had follow up with Surgeon, still wearing sling until March 21, still doing PT twice weekly, at [facility]. Doing well since surgery. Next following [...] knee s(Bosto (more content not included)... Normal [facility] Inital Evaluation (1) - PTon 03-10-2023 Inital Evaluation (1) - PT Normal [facility] Discharge Instructionon 02-05 Discharge Instruction Normal [facility] CBC W/Diff, Automatedon 02-05 Absolute Lymph 1.21 X10 3/uL Normal 0.83-4.51 [facility] Comment on above: Performed By: #### L 100.0100 ####[facility] [address] [place], [address] Absolute Neut 5.7 X10 3/uL Normal 2.0-7.7 [facility] Comment on above: Performed By: #### L 100.0100 ####[facility] [address] [place], [address] Basophils/100 WBC (Bld) 0.5 % Normal 0-1 [facility] Comment on above: Performed By: #### L 100.0100 ####[facility] [address] [place], [address] Eosinophils/100 WBC (Bld) 7.1 % High 0-5 [facility] Comment on above: Performed By: #### L 100.0100 ####[facility] [address] [place], [address] Erythrocyte distribution width (RBC) [Ratio] 13.4 % Normal 11.6-14.6 [facility] Comment on above: Performed By: #### L 100.0100 ####[facility] [address] [place], [address] Hematocrit (Bld) [Volume fraction] 35.0 % Low 37-47 [facility] Comment on above: Performed By: #### L 100.0100 ####[facility] [address] [place], [address] Hemoglobin (Bld) [Mass/Vol] 10.3 g/dL Low 12.0-15.0 [facility] Comment on above: Performed By: #### L 100.0100 ####[facility] [address] [place], [address] IG% 0.900 Normal 0.0-0.9 [facility] Comment on above: Result Comment: IG% - Immature Granulocytes (promyelocytes, myelocytes andmetamyelocytes) > 1% indicates that a LEFT SHIFT is Present. Performed By: #### L 100.0100 ####[facility] [address] [place], [address] Lymphocytes/100 WBC (Bld) 14.9 % Low 19-41 [facility] Comment on above: Performed By: #### L 100.0100 ####[facility] [address] [place], [address] MCH (RBC) [Entitic mass] 32.3 pg High 27.0-32.0 [facility] Comment on above: Performed By: #### L 100.0100 ####[facility] [address] [place], [address] MCHC (RBC) [Mass/Vol] 29.4 g/dL Low 32-36 [facility] Comment on above: Performed By: #### L 100.0100 ####[facility] [address] [place], [address] MCV (RBC) [Entitic vol] 109.7 fL High 81-99 [facility] Comment on above: Performed By: #### L 100.0100 ####[facility] [address] [place], [address] Monocytes/100 WBC (Bld) 6.6 % Normal 0-10 [facility] Comment on above: Performed By: #### L 100.0100 ####[facility] [address] [place], [address] Neutrophils/100 WBC (Bld) 70.0 % Normal 47-70 [facility] Comment on above: Performed By: #### L 100.0100 ####[facility] [address] [place], [address] Nucleated RBC (Bld) [#/Vol] 0 10*3/uL Normal 0-5 [facility] Comment on above: Performed By: #### L 100.0100 ####[facility] [address] [place], [address] Platelet mean volume (Bld) [Entitic vol] 12.3 fL High 6.2-12.0 [facility] Comment on above: Performed By: #### L 100.0100 ####[facility] [address] [place], [address] Platelets (Bld) [#/Vol] 255 10*3/uL Normal 150-450 [facility] Comment on above: Performed By: #### L 100.0100 ####[facility] [address] [place], [address] RBC (Bld) [#/Vol] 3.19 10*6/uL Low 4.2-5.4 [facility] Comment on above: Performed By: #### L 100.0100 ####[facility] [address] [place], [address] RDW SD 54.3 fl High 35.1-43.9 [facility] Comment on above: Performed By: #### L 100.0100 ####[facility] [address] [place], [address] WBC (Bld) [#/Vol] 8.1 10*3/uL Normal 4.4-11.0 [facility] Comment on above: Performed By: #### L 100.0100 ####[facility] [address] [place], [address] Venous Duplex US, Unilateral on 02-29-2024 Venous Duplex US, Unilateral Normal [facility] Urinalysis, Completeon 02-25 BACTERIA 3+ /hpf Normal None Seen [facility] Comment on above: Order Comment: SUSAN TER SPECIMEN Performed By: #### L 400.0001 ####[facility] [address] [place], [address] EPI,SQUAMOUS 0-5 SEEN Normal 5-10 [facility] Comment on above: Order Comment: SUSAN TER SPECIMEN Performed By: #### L 400.0001 ####[facility] [address] [place], [address] RBC 0-5 SEEN Normal 0-5 [facility] Comment on above: Order Comment: SUSAN TER SPECIMEN Performed By: #### L 400.0001 ####[facility] [address] [place], [address] WBC 10-25 SEEN Normal 0-5 [facility] Comment on above: Order Comment: SUSAN TER SPECIMEN Performed By: #### L 400.0001 ####[facility] [address] [place], [address] Mucus Ql (Urine sed) 0 SEEN Normal [facility] Comment on above: Order Comment: SUSAN TER SPECIMEN Performed By: #### L 400.0001 ####[facility] [address] [place], [address] CBC W/Diff, Automatedon 11-2 Absolute Lymph 1.82 X10 3/uL Normal 0.83-4.51 [facility] Comment on above: Performed By: #### L 501.2300, L100.0100, L501.5200, L500.4050 ####[facility] [address] [place], [address] Absolute Neut 3.9 X10 3/uL Normal 2.0-7.7 [facility] Comment on above: Performed By: #### L 501.2300, L100.0100, L501.5200, L500.4050 ####[facility] [address] [place], [address] Basophils/100 WBC (Bld) 0.6 % Normal 0-1 [facility] Comment on above: Performed By: #### L 501.2300, L100.0100, L501.5200, L500.4050 ####[facility] [address] [place], [address] Eosinophils/100 WBC (Bld) 5.8 % High 0-5 [facility] Comment on above: Performed By: #### L 501.2300, L100.0100, L501.5200, L500.4050 ####[facility] [address] [place], [address] Erythrocyte distribution width (RBC) [Ratio] 13.6 % Normal 11.6-14.6 [facility] Comment on above: Performed By: #### L 501.2300, L100.0100, L501.5200, L500.4050 ####[facility] [address] [place], [address] Hematocrit (Bld) [Volume fraction] 33.3 % Low 37-47 [facility] Comment on above: Performed By: #### L 501.2300, L100.0100, L501.5200, L500.4050 ####[facility] [address] [place], [address] Hemoglobin (Bld) [Mass/Vol] 10.2 g/dL Low 12.0-15.0 [facility] Comment on above: Performed By: #### L 501.2300, L100.0100, L501.5200, L500.4050 ####[facility] [address] [place], [address] IG% 0.400 Normal 0.0-0.9 [facility] Comment on above: Result Comment: IG% - Immature Granulocytes (promyelocytes, myelocytes andmetamyelocytes) > 1% indicates that a LEFT SHIFT is Present. Performed By: #### L 501.2300, L100.0100, L501.5200, L500.4050 ####[facility] [address] [place], [address] Lymphocytes/100 WBC (Bld) 26.2 % Normal 19-41 [facility] Comment on above: Performed By: #### L 501.2300, L100.0100, L501.5200, L500.4050 ####[facility] [address] [place], [address] MCH (RBC) [Entitic mass] 32.8 pg High 27.0-32.0 [facility] Comment on above: Performed By: #### L 501.2300, L100.0100, L501.5200, L500.4050 ####[facility] [address] [place], [address] MCHC (RBC) [Mass/Vol] 30.6 g/dL Low 32-36 [facility] Comment on above: Performed By: #### L 501.2300, L100.0100, L501.5200, L500.4050 ####[facility] [address] [place], [address] MCV (RBC) [Entitic vol] 107.1 fL High 81-99 [facility] Comment on above: Performed By: #### L 501.2300, L100.0100, L501.5200, L500.4050 ####[facility] [address] [place], [address] Monocytes/100 WBC (Bld) 10.5 % High 0-10 [facility] Comment on above: Performed By: #### L 501.2300, L100.0100, L501.5200, L500.4050 ####[facility] [address] [place], [address] Neutrophils/100 WBC (Bld) 56.5 % Normal 47-70 [facility] Comment on above: Performed By: #### L 501.2300, L100.0100, L501.5200, L500.4050 ####[facility] [address] [place], [address] Nucleated RBC (Bld) [#/Vol] 0 10*3/uL Normal 0-5 [facility] Comment on above: Performed By: #### L 501.2300, L100.0100, L501.5200, L500.4050 ####[facility] [address] [place], [address] Platelet mean volume (Bld) [Entitic vol] 12.2 fL High 6.2-12.0 [facility] Comment on above: Performed By: #### L 501.2300, L100.0100, L501.5200, L500.4050 ####[facility] [address] [place], [address] Platelets (Bld) [#/Vol] 183 10*3/uL Normal 150-450 [facility] Comment on above: Performed By: #### L 501.2300, L100.0100, L501.5200, L500.4050 ####[facility] [address] [place], [address] RBC (Bld) [#/Vol] 3.11 10*6/uL Low 4.2-5.4 [facility] Comment on above: Performed By: #### L 501.2300, L100.0100, L501.5200, L500.4050 ####[facility] [address] [place], [address] RDW SD 53.3 fl High 35.1-43.9 [facility] Comment on above: Performed By: #### L 501.2300, L100.0100, L501.5200, L500.4050 ####[facility] [address] [place], [address] WBC (Bld) [#/Vol] 6.9 10*3/uL Normal 4.4-11.0 [facility] Comment on above: Performed By: #### L 501.2300, L100.0100, L501.5200, L500.4050 ####[facility] [address] [place], [address] Comprehensive Metabolic [facility] 02-25-2024 Albumin [Mass/Vol] 2.5 g/dL Low 3.2-5.0 [facility] Comment on above: Performed By: #### L 501.2300, L100.0100, L501.5200, L500.4050 ####[facility] [address] [place], [address] Albumin/Globulin [Mass ratio] 0.7 {ratio} Low 0.9-2.4 [facility] Comment on above: Performed By: #### L 501.2300, L100.0100, L501.5200, L500.4050 ####[facility] [address] [place], [address] ALK P 62 U/L Normal 45-117 [facility] Comment on above: Performed By: #### L 501.2300, L100.0100, L501.5200, L500.4050 ####[facility] [address] [place], [address] ALT [Catalytic activity/Vol] 20 U/L Normal 13-56 [facility] Comment on above: Performed By: #### L 501.2300, L100.0100, L501.5200, L500.4050 ####[facility] [address] [place], [address] AST [Catalytic activity/Vol] 22 U/L Normal 15-37 [facility] Comment on above: Performed By: #### L 501.2300, L100.0100, L501.5200, L500.4050 ####[facility] [address] [place], [address] Bilirubin [Mass/Vol] 0.30 mg/dL Normal 0.20-1.00 [facility] Comment on above: Result Comment: For patients on eltrombopag therapy, use of Dimension [place] TBIL is not recommended. Performed By: #### L 501.2300, L100.0100, L501.5200, L500.4050 ####[facility] [address] [place], [address] BUN/CRE 44.2 RATIO High 10-20 [facility] Comment on above: Performed By: #### L 501.2300, L100.0100, L501.5200, L500.4050 ####[facility] [address] [place], [address] CA,Total 8.1 mg/dL Low 8.5-10.1 [facility] Comment on above: Performed By: #### L 501.2300, L100.0100, L501.5200, L500.4050 ####[facility] [address] [place], [address] Chloride [Moles/Vol] 114 mmol/L High 98-107 [facility] Comment on above: Performed By: #### L 501.2300, L100.0100, L501.5200, L500.4050 ####[facility] [address] [place], [address] CO2 [Moles/Vol] 18.0 mmol/L Low 21.0-32.0 [facility] Comment on above: Performed By: #### L 501.2300, L100.0100, L501.5200, L500.4050 ####[facility] [address] [place], [address] Creatinine [Mass/Vol] 1.56 mg/dL High 0.55-1.02 [facility] Comment on above: Result Comment: The validity of the calculated GFR GFRAA in patients over70 years has not been determined. Clinical correlation isessential. Performed By: #### L 501.2300, L100.0100, L501.5200, L500.4050 ####[facility] [address] [place], [address] EST GFR - AA 41 mL/min Low >60 [facility] Comment on above: Result Comment: Afri can Japanese GFR Calc Performed By: #### L 501.2300, L100.0100, L501.5200, L500.4050 ####[facility] [address] [place], [address] GAP 6 Normal 5-15 [facility] Comment on above: Performed By: #### L 501.2300, L100.0100, L501.5200, L500.4050 ####[facility] [address] [place], [address] GFR/1.73 sq M.predicted among non-blacks MDRD (S/P/Bld) [Vol rate/Area] 34 mL/min/{1.73_m2} Low >60 [facility] Comment on above: Result Comment: Non- GFR Calc Performed By: #### L 501.2300, L100.0100, L501.5200, L500.4050 ####[facility] [address] [place], [address] Globulin (S) [Mass/Vol] 3.5 g/dL Normal 2.2-4.2 [facility] Comment on above: Performed By: #### L 501.2300, L100.0100, L501.5200, L500.4050 ####[facility] [address] [place], [address] Glucose [Mass/Vol] 109 mg/dL High 74-106 [facility] Comment on above: Result Comment: Fast ing Glucose result from 100 to 125 mg/dLsuggests IMPAIRED HOMEOSTASIS per A.D.A. criteria. Performed By: #### L 501.2300, L100.0100, L501.5200, L500.4050 ####[facility] [address] [place], [address] Potassium [Moles/Vol] 4.6 mmol/L Normal 3.5-5.1 [facility] Comment on above: Performed By: #### L 501.2300, L100.0100, L501.5200, L500.4050 ####[facility] [address] [place], [address] Sodium [Moles/Vol] 138 mmol/L Normal 136-145 [facility] Comment on above: Performed By: #### L 501.2300, L100.0100, L501.5200, L500.4050 ####[facility] [address] [place], [address] T PROT 6.0 g/dL Low 6.4-8.2 [facility] Comment on above: Performed By: #### L 501.2300, L100.0100, L501.5200, L500.4050 ####[facility] [address] [place], [address] Urea nitrogen [Mass/Vol] 69 mg/dL High 7-18 [facility] Comment on above: Performed By: #### L 501.2300, L100.0100, L501.5200, L500.4050 ####[facility] [address] [place], [address] Ferritinon 02-25-2024 Ferritin [Mass/Vol] 94 ng/mL Normal 8-252 [facility] Comment on above: Performed By: #### L 503.6550, L503.6030 ####[facility] [address] [place], [address] Folates, (Folic Acid)on 02-05 FOLATES 29.20 ng/mL Normal 3.1-55.4 [facility] Comment on above: Order Comment: Has P francy had X-rays with [facility] this admission? [place] Result Comment: Slig ht Hemolysis, Result may be falsely increased. Performed By: #### L 506.0250, L506.0400, L501.9520 ####[facility] [address] [place], [address] Iron+Iron Binding Capacityon 02-25-2024 Iron [Mass/Vol] 26 ug/dL Low 50-170 [facility] Comment on above: Result Comment: Slig ht Hemolysis, Result may be falsely increased. Performed By: #### L 503.6550, L503.6030 ####[facility] [address] [place], [address] IRON SATURATION 6.6 Low 15.0-55.0 [facility] Comment on above: Performed By: #### L 503.6550, L503.6030 ####[facility] [address] [place], [address] TIBC 396 ug/dL Normal 250-450 [facility] Comment on above: Performed By: #### L 503.6550, L503.6030 ####[facility] [address] [place], [address] Magnesiumon 02-25-2024 Magnesium [Mass/Vol] 2.1 mg/dL Normal 1.6-2.6 [facility] Comment on above: Performed By: #### L 501.2300, L100.0100, L501.5200, L500.4050 ####[facility] [address] [place], [address] Phosphoruson 02-25-2024 Phosphate [Mass/Vol] 4.6 mg/dL Normal 2.5-4.9 [facility] Comment on above: Performed By: #### L 501.2300, L100.0100, L501.5200, L500.4050 ####[facility] [address] [place], [address] Retic Panelon 02-25-2024 IM RET FRACTION 21.90 High 3.00-15.90 [facility] Comment on above: Performed By: #### L 100.9950 ####[facility] [address] [place], [address] RET-HE 32.4 pg Normal 30-35 [facility] Comment on above: Performed By: #### L 100.9950 ####[facility] [address] [place], [address] Retic Count 2.34 High 0.5-1.5 [facility] Comment on above: Performed By: #### L 100.9950 ####[facility] [address] [place], [address] Stool Occult Blood iFOBon 11 21-2024 STOB Negative Normal [facility] Comment on above: Performed By: #### M 1007900 ####[facility] [address] [place], [place], [address] T4 Free Directon 02-25-2024 T4 FREE DIRECT 1.68 ng/dL High 0.76-1.46 [facility] Comment on above: Order Comment: Has Manuela sen had X-rays with [facility] this [place]? [place] Performed By: #### L 506.0250, L506.0400, L501.9520 ####[facility] [address] [place], [place], [address] Thyroid Stim Hormone (TSH)on 02-25-2024 TSH 0.449 uIU/mL Normal 0.358-3.74 0 [facility] Comment on above: Order Comment: Has Manuela sen had X-rays with [facility] this [place]? [place] Performed By: #### L 506.0250, L506.0400, L501.9520 ####[facility] [address] [place], [place], [address] Vitamin B12on 02-25-2024 Cobalamin (Vitamin B12) [Mass/Vol] 561 pg/mL Normal 211-911 [facility] Comment on above: Performed By: #### L 503.0105 ####[facility] [address] [place], [place], [address] PT D/C Summary (1)on 024 PT D/C Summary (1) Normal [facility] [place] 02-12-2024 CNPN Telephone (FAMPWS) MARI LOPEZ ([id number]) 1940 F Date Time Provider Department 02/12/24 LIZY CAPONE FAMPWS During your visit today, we recorded the following information about you: Alex Lackey MA 02/12/2024 9:00 AM Signed Type of letter/form/fax request - medical clearance request for surgery Form received from fax on 1 floor and placed on MD desk (Dr. Capone) for completion. Completed form needs to be faxed to [facility] at [phone]. Pt scheduled for Left reverse total shoulder arthroplasty on 02/22/[address] Klaus Omallye. Pt has PAT on 02/18/24 at [facility]. Pt last OV on 01/28/24 with Miryam Orozco for routine follow up. Route to [place] when form completed for processing Lizy Capone [...] medical clearance form [Other] Cmt: [facility] for shoulder surgery Prescriptions as of 02/12/2024 [...] 24 hr tablet Take by mouth. - Mqsbruwlsyl-Gumikgfiv-Rqt C-Mn (GLUCOSAMINE CHONDROITIN MAXSTR) 500-400 mg cap Take 1 capsule by mouth three times daily. - COMPOUNDED PRESCRIPTION Stair lift - DAILY-LUISITO tablet TAKE 1 TABLET BY MOUTH ONCE DAILY. - aboatud-adsmmryuv-hdfbznj D3 (CALCIUM 500+D) 500 mg(1,250mg) -200 unit [...] [1003] 05/07/2005 07/12/2021 INJURY TRUNK SITE NEC [[id number]] 01/16/2006 07/01/2007 Anemia in (more content not included)... Normal [facility] 12 Lead EKG performed by BMS on 02-09-2024 12 Lead EKG performed by BMS Normal [facility] Cardiology Visit Reporton Cardiology Visit Report Normal [facility] CNOVon 01-28-2024 CNOV Office Visit (FAMPWS ) MARI LOPEZ ([id number]) 1940 F Date Time Provider Department 01/28/24 9:00 AM MIRYAM OROZCO FAMPWS During your visit today, we recorded the following information about you: Pulse Respiration Blood pressure Weight 77/minute 16/minute 122/60 103.9 kg Miryam Orozco APRN.CNP 01/28/2024 2:38 PM Signed This is a 83 year old female who presents today with: Patient presents with: 6 Month Exam HISTORY OF PRESENT ILLNESS: Mrai Lopez is a 83 year old female. [...] shoulder surgery in February with [facility], Dr. Omalley. LLE: Lasix 40 mg for [...] CONDYLEANDPLATU MEDIALANDLAT COMPARTMENTS 1990 bilateral total knee s([place]) ARTHRP KNE CONDYLEANDPLATU MEDIALANDLAT COMPARTMENTS 10/24/04 bilateral total knee revisions DELIVERY ONLY , low cervical CHOLECYSTECTOMY COLONOSCOPY FLX DX W/COLLJ SPEC WHEN PFRMD 11/17/2017 Colonoscopy DEBRIDEMENT SUBCUTANEOUS TISSUE 20 SQ CM/< 02/17/07 LEFT LEG DEBRIDEMENT SUBCUTANEOUS TISSUE 20 SQ CM/< [id number] LEFT LEG DEBRIDEMENT SUBCUTANEOUS TISSUE 20 SQ CM/< [id number] LEFT LEG DEBRIDEMENT SUBCUTANEOUS TISSUE 20 SQ CM/< [id number] LEFT LEG DEBRIDEMENT SUBCUTANEOUS TISSUE 20 SQ CM/< [id number] LEFT LEG DEBRIDEMENT SUBCUTANEOUS TISSUE 20 SQ [...] daily. amLODIPi (more content not included)... Normal [facility] T4 Free SerPl-mCncon 024 Free T4 [Mass/Vol] 1.5 ng/dL Normal 0.9-1.7 [facility] Comment on above: Order Comment: Lea monae Type: BLOOD SPECIMENOrdering Facility: [facility] Address: [address] [place] [address] Performed By: #### 3 024-7, 3016-3 ####[facility] [id number] [place] [address] [place] TSH SerPl-aCncon 01-26-2024 TSH Qn 3.870 m[IU]/L Normal 0.270-4.20 0 [facility] Comment on above: Order Comment: Lea monae Type: BLOOD SPECIMENOrdering Facility: [facility] Address: [address] [place] [address] Performed By: #### 3 024-7, 3 ####[facility] [id number] [address] [place] 12-29-2023 MIHIR Telephone (HAKEEM) MARI LOPEZ ([id number]) 1940 F Date Time Provider Department 12/29/23 [...] a Left total knee replacement. [facility]on Severino Med Sedc Jadon Michael 12/29/2023 10:40 AM Signed Lvm for patient to call back and schedule an appointment with Dr. Jackson for knee pain. DiopMichael 12/31/2023 8:15 AM Signed Lvm for patient to call back and schedule an appointment with Dr. Jackson. JadonMichael 01/04/2024 8:39 AM Signed Lvm for patient [...] 24 hr tablet Take by mouth. - Zbbtekajtxs-Mohgdgevg-Gxp C-Mn (GLUCOSAMINE CHONDROITIN MAXSTR) 500-400 mg cap Take 1 capsule by mouth three times daily. - COMPOUNDED PRESCRIPTION Stair lift - DAILY-LUISITO tablet TAKE 1 TABLET BY MOUTH ONCE DAILY. - icfjrbs-vhukqbukj-yzlrafx D3 (CALCIUM 500+D) 500 mg(1,250mg) -200 unit [...] [1003] 05/07/2005 07/12/2021 INJURY TRUNK SITE NEC [[id number]] 01/16/2006 07/01/2007 Anemia in chronic kidney disease (CKD) [N18.9, *03/17/2006 Non-Healing Surgical Wound [T81.89XA] 03/16/2007 05/18/2009 FEMALE STRESS INCONTINENC (more content not included)... Normal [facility] Inital Evaluation (1) - PTon 12-24-2023 Inital Evaluation (1) - PT Normal [facility] CNOVon 12-17-2023 CNOV Office Visit (SPAGWO ) MARI LOPEZ ([id number]) 1940 F Date Time Provider Department 12/17/23 8:45 AM ROQUE DELGADOGWO During your visit today, we recorded the following information about you: Pulse Respiration Normal [facility] [place] 12-16-2023 CNPN Telephone (FAMPWS) MARI LOPEZ ([id number]) 1940 F Date Time Provider Department 12/16/23 MIRYAM OROZCO During your visit today, we [...] some form exercise. Keep scheduled appointments with miter sawyer. Please let me know what she prefers [...] [E03.9] Order(s):THYROID STIMULATING HORMONE [SQTSH] Order #: [id number] FUTURE T4 FREE/FREE THYROXINE [SQFT4] Order #: [id number] FUTURE Prescriptions as of 12/17/2023 - zolpidem [...] 24 hr tablet Take by mouth. - Kzccmsvccdh-Ozfcaivhw-Ohf C-Mn (GLUCOSAMINE CHONDROITIN MAXSTR) 500-400 mg cap Take 1 capsule by mouth three times daily. - COMPOUNDED PRESCRIPTION Stair lift - DAILY-LUISITO tablet TAKE 1 TABLET BY MOUTH ONCE DAILY. - ylpbskz-fshmflbbc-lyftrfy D3 (CALCIUM 500+D) 500 mg(1,250mg) -200 unit [...] TAB Take (more content not included)... Normal [facility] 12-14-2023 [facility] Telephone (AGSPINE3) MARI LOPEZ ([id number]) 1940 F Date Time Provider Department 12/14/23 PREBISH, WESTON BOOKER3 During your visit today, we recorded the [...] elaborate or confirm Was Patient Referred to [facility]/Seek Emergency Treatment (Y/N): n Did Patient Agree (Y/N): n/a Was An Attempt Made To Transfer The Patient To The Office (Y/N): n Were You Able To Reach Someone At The Office (Y/N): n/a If Yes - Patient Was Transferred To (Caregivers Name): n/a If No - Which [facility] Leadership Computer Systems Design Analyst Did You Speak With Regarding This Patient: n/a Was an appointment scheduled (Y/N): n Reason patient was requesting visit (RFV/signs and symptoms/diagnosis) : n/a Person calling if other than patient: self Return call to if other than patient: self Best contact number: [phone] Thank you, Linda Singh December 14, 2023 12:40 PM Sofía Crowe 12/14/2023 1:04 PM Signed This patient does not have mychart- but was scheduled for a VV Please reschedule her to in person as we do not schedule phone call visits any longer Gonzalo Holland 12/14/2023 1:32 PM Signed Patient has been rescheduled with Dr. Delgado in [place] on 12/16 at 8:45am. Gonzalo Holland Allergies [...] 24 hr tablet Take by mouth. - Puetfkdkbcw-Cgvrxgqzb-Ihh C-Mn (GLUCOSAMINE CHONDROITIN MAXSTR) 500-400 mg cap Take 1 capsule by mouth three times daily. - COMPOUNDED PRESCRIPTION Stair lift - DAILY-LUISITO tablet TAKE 1 TABLET BY MOUTH ONCE DAILY. - jcvmfao-oyrtaumen-vumzbcs D3 (CALCIUM 500+D) 500 mg(1,250mg) -200 unit [...] once daily. (more content not included)... Normal [facility] CJN Telephone (MO) MARI LOPEZ ([id number]) 1940 F Date Time Provider Department 12/14/23 MIRYAM OROZCO During your visit today, we recorded the following information about you: Minna Blue LPN 12/14/2023 10:41 AM Signed Pt came to window requesting a order for Physical Therapy due to frequent falls. She would like it faxed to [facility]. RUDDY Gong Ashley, APRN.JC 12/14/2023 11:32 AM Signed Order for physical therapy has been placed. Will be faxed to [facility]. Miryam Orozco APRN.CJ Allergies As of Date: [...] Order(s):CONSULT TO PHYSICAL THERAPY [9032] Order #: [id number]: 1 FUTURE Prescriptions as of 12/14/2023 - [...] 24 hr tablet Take by mouth. - Wgvzabzlfio-Opevqbzji-Bmy C-Mn (GLUCOSAMINE CHONDROITIN MAXSTR) 500-400 mg cap Take 1 capsule by mouth three times daily. - COMPOUNDED PRESCRIPTION Stair lift - DAILY-LUISITO tablet TAKE 1 TABLET BY MOUTH ONCE DAILY. - upicmfg-kaoucaeyr-lqaxdih D3 (CALCIUM 500+D) 500 mg(1,250mg) -200 unit [...] [1003] 05/07/2005 07/12/2021 INJURY TRUNK SITE NEC [[id number]] 01/16/2006 07/01/2007 Anemia in chronic kidney disease (CKD) [N18.9, *03/17/2006 Non-Healing Surgical Wound [T81.89XA] 03/16/2007 05/18/2009 FEMALE STRESS INCONTINENCE [N39.3] 07/12/2008 MASS IN SUBCUTANEOUS TISSUE [R22.9] 07/21/2008 08/18/2018 Pain in Joint, Lower Leg [M25.569] 11/14/200808/21 (more content not included)... Normal [facility] Comprehensive metabolic 2000 panelon 12-14-2023 Albumin [Mass/Vol] 3.9 g/dL Normal 3.9-4.9 [facility] Comment on above: Order Comment: Speci men Type: BLOOD SPECIMENOrdering Facility: [facility] Address: [address] [place] [address] Performed By: #### 2 4323-8, 57448-3, 3016-3 ####[facility] [id number] [place] [address] [place] ALP [Catalytic activity/Vol] 77 U/L Normal 34-123 [facility] Comment on above: Order Comment: Speci men Type: BLOOD SPECIMENOrdering Facility: [facility] Address: [address] [place], [place] [address] Performed By: #### 2 4323-8, 00997-1, 3016-3 ####[facility] [id number] [place] [id number] [place] ALT [Catalytic activity/Vol] 15 U/L Normal 7-38 [facility] Comment on above: Order Comment: Speci men Type: BLOOD SPECIMENOrdering Facility: [facility] Address: [address] [place] [address] Performed By: #### 2 4323-8, 05632-3, 3016-3 ####[facility] [id number] [facility] [address] [address] [place] Anion gap [Moles/Vol] 14 mmol/L Normal 8-15 [facility] Comment on above: Order Comment: Speci men Type: BLOOD SPECIMENOrdering Facility: [facility] Address: [address] [place] [address] Performed By: #### 2 4323-8, 30116-4, 6-3 ####[facility] [id number] [facility] [place] [id number] [place] AST [Catalytic activity/Vol] 22 U/L Normal 13-35 [facility] Comment on above: Order Comment: Speci men Type: BLOOD SPECIMENOrdering Facility: [facility] Address: [address] [place] [address] Performed By: #### 2 4323-8, 19284-4, 3015-3 ####[facility] [id number] [place] [address] [place] Bilirubin [Mass/Vol] 0.4 mg/dL Normal 0.2-1.3 [facility] Comment on above: Order Comment: Speci men Type: BLOOD SPECIMENOrdering Facility: [facility] Address: [address] [place], [place] [address] Performed By: #### 2 4323-8, 26171-8, 3015-3 ####[facility] [id number] [facility] [address] [address] [place] Calcium [Mass/Vol] 9.1 mg/dL Normal 8.5-10.2 [facility] Comment on above: Order Comment: Speci men Type: BLOOD SPECIMENOrdering Facility: [facility] Address: [address] [place], [place] [address] Performed By: #### 2 4323-8, 44081-4, 6-3 ####[facility] [id number] [place] [address] [place] Chloride [Moles/Vol] 109 mmol/L High 98-107 [facility] Comment on above: Order Comment: Speci men Type: BLOOD SPECIMENOrdering Facility: [facility] Address: [address] [place] [address] Performed By: #### 2 4323-8, 40978-8, 3016-3 ####[facility] [id number] [place] [address] [place] CO2 [Moles/Vol] 17 mmol/L Low 22-30 [facility] Comment on above: Order Comment: Speci men Type: BLOOD SPECIMENOrdering Facility: [facility] Address: [address] [place] [address] Performed By: #### 2 4323-8, 50948-9, 3016-3 ####[facility] [id number] [place] [address] [place] Creatinine [Mass/Vol] 1.72 mg/dL High 0.58-0.96 [facility] Comment on above: Order Comment: Speci men Type: BLOOD SPECIMENOrdering Facility: [facility] Address: [address] [place] [address] Performed By: #### 2 4323-8, 36097-1, 3016-3 ####[facility] [id number] [place] [address] [place] Creatinine and Glomerular filtration rate.predicted panel (S/P/Bld) 30 mL/min/1.73m??? Low >=60 [facility] Comment on above: Order Comment: Speci men Type: BLOOD SPECIMENOrdering Facility: [facility] Address: [address] [place] [address] Result Comment: Kayy mated Glomerular Filtration Rate [...] reflect actual GFR. Performed By: #### 2 4323-8, 19087-1, 3 ####[facility] [id number] [address] [address] [place] Glucose [Mass/Vol] 99 mg/dL Normal 74-99 [facility] Comment on above: Order Comment: Lea monae Type: BLOOD SPECIMENOrdering Facility: [facility] Address: [address] [place] [address] Result Comment: The [place] Diabetes Association (ADA) provides guidance for cutoff [...] Standards of Medical Care in Diabetes 2016, [place] Diabetes Association. Diabetes Care. 2016.39(Suppl 1). Performed By: #### 2 4323-8, 01686-8, 3015-06 ####[facility] [id number] [facility] [address] [address] [place] Potassium [Moles/Vol] 5.3 mmol/L High 3.7-5.1 [facility] Comment on above: Order Comment: Lea monae Type: BLOOD SPECIMENOrdering Facility: [facility] Address: [address] [place] [address] Performed By: #### 2 4323-8, 08403-1, 3015-06 ####[id number] [facility] [address] [address] [place] Protein [Mass/Vol] 6.6 g/dL Normal 6.3-8.0 [facility] Comment on above: Order Comment: Speci men Type: BLOOD SPECIMENOrdering Facility: [facility] Address: [address] [place] [address] Performed By: #### 2 4323-8, 49255-8, 3016-3 ####[facility] [id number] [place] [address] [place] Sodium [Moles/Vol] 140 mmol/L Normal 136-144 [facility] Comment on above: Order Comment: Speci men Type: BLOOD SPECIMENOrdering Facility: [facility] Address: [address] [place] [address] Performed By: #### 2 4323-8, 02535-3, 3016-3 ####[facility] [id number] [place] [address] [place] Urea nitrogen [Mass/Vol] 68 mg/dL High 7-21 [facility] Comment on above: Order Comment: Speci men Type: BLOOD SPECIMENOrdering Facility: [facility] Address: [address] [place] [address] Performed By: #### 2 4323-8, 71489-9, 3015-3 ####[facility] [id number] [address] [address] [place] Lipid 1996 panelon 4 Cholesterol [Mass/Vol] 179 mg/dL Normal <200 [facility] Comment on above: Order Comment: Speci men Type: BLOOD SPECIMENOrdering Facility: [facility] Address: [address] [place] [address] Result Comment: <200 mg/dL, Desirable 200-239 mg/dL, Borderline high >239 mg/dL, High Performed By: #### 2 4323-8, 35696-1, 3016-3 ####[facility] [id number] [address] [address] [place] Cholesterol in HDL [Mass/Vol] 55 mg/dL Normal >39 [facility] Comment on above: Order Comment: Jesui dov Type: BLOOD SPECIMENOrdering Facility: [facility] Address: [facility] [place] [address] Result Comment: 40-5 9 mg/dL, Acceptable >59 mg/dL, High: Negative risk factor for coronary heart disease <40 mg/dL, Low: Positive risk factor for coronary heart disease Performed By: #### 2 4323-8, 32931-0, 6-3 ####[facility] [id number] [address] [place] Cholesterol in LDL [Mass/Vol] 90 mg/dL Normal <100 [facility] Comment on above: Order Comment: Lea dov Type: BLOOD SPECIMENOrdering Facility: [facility] Address: [address] [place] [address] Result Comment: <100 mg/dL, Optimal 100-129 mg/dL, Near optimal/above optimal 130-159 mg/dL, Borderline high 160-189 mg/dL, High >189 mg/dL, Very high Secondary prevention optimal LDL Cholesterol levels are recommended to be < 70 mg/dL Performed By: #### 2 4323-8, 07622-6, 3015-3 ####[facility] [id number] [address] OF [place] Cholesterol in LDL/Cholesterol in HDL [Mass ratio] 1.64 {ratio} Normal <2.54 [facility] Comment on above: Order Comment: Lea monae Type: BLOOD SPECIMENOrdering Facility: [facility] Address: [address] [place] [address] Result Comment: Jaycob engel: 1. National Cholesterol Education Program ATP III Guideline At-A-Glance Quick Desk Reference: National Heart, Lung, and Blood Paradox. National Institutes of Health. 2001: NIH Publication No. 01-3305. 2. An International Atherosclerosis Society position paper: global recommendations for the management of dyslipidemia: executive summary, Atherosclerosis. 2014: 232(2):410-413. Performed By: #### 2 4323-8, 44296-2, 3 ####[facility] [id number] [address] [address] [place] Cholesterol in VLDL [Mass/Vol] 34 mg/dL High <30 [facility] Comment on above: Order Comment: Speci men Type: BLOOD SPECIMENOrdering Facility: [facility] Address: [address] [place] [address] Performed By: #### 2 4323-8, 41589-6, 3015-06 ####[facility] [id number] [place] [address] [place] Cholesterol non HDL [Mass/Vol] 124 mg/dL Normal <130 [facility] Comment on above: Order Comment: Speci men Type: BLOOD SPECIMENOrdering Facility: [facility] Address: [address] [place] [address] Result Comment: <130 mg/dL, Optimal 130-159 mg/dL, Near optimal/above optimal 160-189 mg/dL, Borderline high 190-219 mg/dL, High >219 mg/dL, Very high Secondary prevention optimal non HDL Cholesterol levels are recommended to be <100 mg/dL Performed By: #### 2 4323-8, 46542-5, 3015-06 ####[facility] [id number] [address] [address] [place] Cholesterol.total/Chol esterol in HDL [Mass ratio] 3.25 {ratio} Normal <5.10 [facility] Comment on above: Order Comment: Speci men Type: BLOOD SPECIMENOrdering Facility: [facility] Address: [address] [id number] Performed By: #### 2 4323-8, 69539-6, 3015-06 ####[facility] [id number] [address] [address] [place] FASTING TIME 12 hrs Normal [facility] Comment on above: Order Comment: Speci men Type: BLOOD SPECIMENOrdering Facility: [facility] Address: [address] [place] [address] Performed By: #### 2 4323-8, 56599-4, 3015-3 ####[facility] [id number] [place] [address] [place] Triglyceride [Mass/Vol] 168 mg/dL High <150 [facility] Comment on above: Order Comment: Speci men Type: BLOOD SPECIMENOrdering Facility: [facility] Address: [address] [place] [address] Result Comment: <150 mg/dL, Normal 150-199 mg/dL, Borderline high 200-499 mg/dL, High >499 mg/dL, Very high Performed By: #### 2 4323-8, 97579-0, 3 ####[facility] [id number] [place] [address] [place] TSH SerPl-aCncon 12-14-2023 TSH Qn 4.550 m[IU]/L High 0.270-4.20 0 [facility] Comment on above: Order Comment: Speci men Type: BLOOD SPECIMENOrdering Facility: [facility] Address: [address] [place] [address] Performed By: #### 2 4323-8, 57174-1, 3 ####[facility] [id number] [address] [place] CNOVon 12-04-2023 CNOV Office Visit (OBGYWM ) MARI LOPEZ ([id number]) 1940 F Date Time Provider Department 12/04/23 9:00 AM STARR SOLANO OBGYWM During your visit today, we [...] L1 SAB0 IAB0 Ectopic0 Multiple0 Live Births0 Film Reader History LMP: Postmenopausal Age at Menarche: Age at First : Age at Menopause: Film Reader History Comments: Sexual Activity: Never; No partner [...] and thrombophlebitis of femoral vein (deep) (superficial) ([facility]) No date: Unspecified sleep apnea PAST SURGICAL HISTORY 04/2004,05/11: ANESTHESIA HERNIA REPAIR LOWER ABDOMEN NOS Comment: gortex put in on 05/11 then taken out06/08 1991: ARTHRP KNE CONDYLEANDPLATU MEDIALANDLAT COMPARTMENTS Comment: bilateral total knee s([place]) 10/24/04 : ARTHRP KNE CONDYLEANDPLATU MEDIALANDLAT COMPARTMENTS Comment: bilateral total knee revisions No date: DELIVERY ONLY Comment: , low cervical No date: CHOLECYSTECTOMY 11/17/2017: COLONOSCOPY FLX DX W/COLLJ SPEC WHEN PFRMD Comment: Colonoscopy 02/17/07: DEBRIDEMENT SUBCUTANEOUS TISSUE 20 SQ CM/< Comment: LEFT LEG [id number]: DEBRIDEMENT SUBCUTANEOUS TISSUE 20 SQ CM/< Comment: LEFT LEG [id number]: DEBRIDEMENT SUBCUTANEOUS TISSUE 20 SQ CM/< Comment: LEFT LEG [id number]: DEBRIDEMENT SUBCUTANEOUS TISSUE 20 SQ CM/< Comment: LEFT LEG [id number]: DEBRIDEMENT SUBCUTANEOUS TISSUE 20 SQ CM/< Comment: [...] Take 1,0 (more content not included)... Normal [facility] CBC-Complete Blood Cnt No Di ffon 12-01-2023 Erythrocyte distribution width (RBC) [Ratio] 14.3 % Normal 11.6-14.6 [facility] Comment on above: Performed By: #### L 500.3600, L509.1000, L100.0500, L506.1000, L501.0900 ####[facility] [address] [place], [address] Hematocrit (Bld) [Volume fraction] 35.4 % Low 37-47 [facility] Comment on above: Performed By: #### L 500.3600, L509.1000, L100.0500, L506.1000, L501.0900 ####[facility] [address] [place], [address] Hemoglobin (Bld) [Mass/Vol] 10.7 g/dL Low 12.0-15.0 [facility] Comment on above: Performed By: #### L 500.3600, L509.1000, L100.0500, L506.1000, L501.0900 ####[facility] [address] [place], [address] MCH (RBC) [Entitic mass] 31.8 pg Normal 27.0-32.0 [facility] Comment on above: Performed By: #### L 500.3600, L509.1000, L100.0500, L506.1000, L501.0900 ####[facility] [address] [place], [address] MCHC (RBC) [Mass/Vol] 30.2 g/dL Low 32-36 [facility] Comment on above: Performed By: #### L 500.3600, L509.1000, L100.0500, L506.1000, L501.0900 ####[facility] [address] [place], [address] MCV (RBC) [Entitic vol] 105.4 fL High 81-99 [facility] Comment on above: Performed By: #### L 500.3600, L509.1000, L100.0500, L506.1000, L501.0900 ####[facility] [address] [place], [address] Platelet mean volume (Bld) [Entitic vol] 12.3 fL High 6.2-12.0 [facility] Comment on above: Performed By: #### L 500.3600, L509.1000, L100.0500, L506.1000, L501.0900 ####[facility] [address] [place], [address] Platelets (Bld) [#/Vol] 267 10*3/uL Normal 150-450 [facility] Comment on above: Performed By: #### L 500.3600, L509.1000, L100.0500, L506.1000, L501.0900 ####[facility] [address] [place], [address] RBC (Bld) [#/Vol] 3.36 10*6/uL Low 4.2-5.4 [facility] Comment on above: Performed By: #### L 500.3600, L509.1000, L100.0500, L506.1000, L501.0900 ####[facility] [address] [place], [address] RDW SD 55.7 fl High 35.1-43.9 [facility] Comment on above: Performed By: #### L 500.3600, L509.1000, L100.0500, L506.1000, L501.0900 ####[facility] [address] [place], [address] WBC (Bld) [#/Vol] 7.9 10*3/uL Normal 4.4-11.0 [facility] Comment on above: Performed By: #### L 500.3600, L509.1000, L100.0500, L506.1000, L501.0900 ####[facility] [address] [place], [address] PTHINon 12-01-2023 PTH 195.9 pg/mL High 18.4-80.1 [facility] Comment on above: Performed By: #### L 500.3600, L509.1000, L100.0500, L506.1000, L501.0900 ####[facility] [address] [place], [address] Protein+Creatinine Ratio,Uri neon 12-01-2023 PROT:CRE RATIO 316 mg/g CRE High 0-200 [facility] Comment on above: Performed By: #### L 500.3600, L509.1000, L100.0500, L506.1000, L501.0900 ####[facility] [address] [place], [address] Protein (U) [Mass/Vol] 14.9 mg/dL High <11.9 [facility] Comment on above: Performed By: #### L 500.3600, L509.1000, L100.0500, L506.1000, L501.0900 ####[facility] [address] [place], [address] UR CREAT 47.10 mg/dL Normal NO RANGE EST. [facility] Comment on above: Performed By: #### L 500.3600, L509.1000, L100.0500, L506.1000, L501.0900 ####[facility] [address] [place], [address] Renal Profileon 12-01-2023 Albumin [Mass/Vol] 3.1 g/dL Low 3.2-5.0 [facility] Comment on above: Order Comment: PRO Performed By: #### L 500.3600, L509.1000, L100.0500, L506.1000, L501.0900 ####[facility] [address] [place], [address] BUN/CRE 42.6 RATIO High 10-20 [facility] Comment on above: Order Comment: PRO Performed By: #### L 500.3600, L509.1000, L100.0500, L506.1000, L501.0900 ####[facility] [address] [place], [address] CA,Total 8.7 mg/dL Normal 8.5-10.1 [facility] Comment on above: Order Comment: PRO Performed By: #### L 500.3600, L509.1000, L100.0500, L506.1000, L501.0900 ####[facility] [address] [place], [address] Chloride [Moles/Vol] 114 mmol/L High 98-107 [facility] Comment on above: Order Comment: PRO Performed By: #### L 500.3600, L509.1000, L100.0500, L506.1000, L501.0900 ####[facility] [address] [place], [address] CO2 [Moles/Vol] 18.0 mmol/L Low 21.0-32.0 [facility] Comment on above: Order Comment: PRO Performed By: #### L 500.3600, L509.1000, L100.0500, L506.1000, L501.0900 ####[facility] [address] [place], [address] Creatinine [Mass/Vol] 1.88 mg/dL High 0.55-1.02 [facility] Comment on above: Order Comment: PRO Result Comment: The validity of the calculated GFR GFRAA in patients over70 years has not been determined. Clinical correlation isessential. Performed By: #### L 500.3600, L509.1000, L100.0500, L506.1000, L501.0900 ####[facility] [address] [place], [address] EST GFR - AA 33 mL/min Low >60 [facility] Comment on above: Order Comment: PRO Result Comment: Afri can Japanese GFR Calc Performed By: #### L 500.3600, L509.1000, L100.0500, L506.1000, L501.0900 ####[facility] [address] [place], [address] GFR/1.73 sq M.predicted among non-blacks MDRD (S/P/Bld) [Vol rate/Area] 27 mL/min/{1.73_m2} Low >60 [facility] Comment on above: Order Comment: PRO Result Comment: Non- GFR Calc Performed By: #### L 500.3600, L509.1000, L100.0500, L506.1000, L501.0900 ####[facility] [address] [place], [address] Glucose [Mass/Vol] 108 mg/dL High 74-106 [facility] Comment on above: Order Comment: PRO Result Comment: Fast ing Glucose result from 100 to 125 mg/dLsuggests IMPAIRED HOMEOSTASIS per A.D.A. criteria. Performed By: #### L 500.3600, L509.1000, L100.0500, L506.1000, L501.0900 ####[facility] [address] [place], [address] Phosphate [Mass/Vol] 4.4 mg/dL Normal 2.5-4.9 [facility] Comment on above: Order Comment: PRO Performed By: #### L 500.3600, L509.1000, L100.0500, L506.1000, L501.0900 ####[facility] [address] [place], [address] Potassium [Moles/Vol] 4.5 mmol/L Normal 3.5-5.1 [facility] Comment on above: Order Comment: PRO Performed By: #### L 500.3600, L509.1000, L100.0500, L506.1000, L501.0900 ####[facility] [address] [place], [address] Sodium [Moles/Vol] 141 mmol/L Normal 136-145 [facility] Comment on above: Order Comment: PRO Performed By: #### L 500.3600, L509.1000, L100.0500, L506.1000, L501.0900 ####[facility] [address] [place], [address] Urea nitrogen [Mass/Vol] 80 mg/dL High 7-18 [facility] Comment on above: Order Comment: PRO Performed By: #### L 500.3600, L509.1000, L100.0500, L506.1000, L501.0900 ####[facility] [address] [place], [address] Vitamin D,25 Hydroxyon 11-30 Vitamin D 25-OH 28.3 ng/mL Normal [facility] Comment on above: Result Comment: Olya min D 25(OH) Status Range Deficiency <20 ng/mL (50nmol/L) Insufficiency 20 - 30 ng/mL (50 - 75 nmol/L) Sufficiency 30 - 100 ng/mL (75 - 250 nmol/L) Toxicity >100 ng/mL (>250 nmol/L) Performed By: #### L 500.3600, L509.1000, L100.0500, L506.1000, L501.0900 ####[facility] [address] [place], [address] [facility] MAR[facility] ([id number]) 1940 F Date Time Provider Department 11/18/23 ROQUE DELGADO [facility] During your visit today, we recorded the [...] 24 hr tablet Take by mouth. - Ecleygefrii-Ustzxxleq-Rjn C-Mn (GLUCOSAMINE CHONDROITIN MAXSTR) 500-400 mg cap Take 1 capsule by mouth three times daily. - COMPOUNDED PRESCRIPTION Stair lift - DAILY-LUISITO tablet TAKE 1 TABLET BY MOUTH ONCE DAILY. - rxqdsiu-hmtjnnclg-zhixgyq D3 (CALCIUM 500+D) 500 mg(1,250mg) -200 unit [...] [1003] 05/07/2005 07/12/2021 INJURY TRUNK SITE NEC [[id number]] 01/16/2006 07/01/2007 Anemia in chronic kidney disease [...] acquired [E0 (more content not included)... Normal [facility] CNOVon 11-09-2023 CNOV [facility] MARI LOPEZ ([id number]) 1940 F Date Time Provider Department 11/09/23 9:20 AM MIRYAM OROZCO [facility] During your visit today, we recorded the following information about you: Pulse Respiration Blood pressure Weight 104/minute 16/minute 106/60 99 kg Miryam Orozco APRN.SAGGER MAKER 11/09/2023 12:07 PM Signed This is a [...] Was hospitalized recently due to fecal impaction, [facility]. Doing well since discharge. Taking Miralax [...] CONDYLEANDPLATU MEDIALANDLAT COMPARTMENTS Comment: bilateral total knee s([place]) 10/24/04 : ARTHRP KNE CONDYLEANDPLATU MEDIALANDLAT COMPARTMENTS Comment: bilateral total knee revisions No date: DELIVERY ONLY Comment: , low cervical No date: CHOLECYSTECTOMY 11/17/2017: COLONOSCOPY FLX DX W/COLLJ SPEC WHEN PFRMD Comment: Colonoscopy 02/17/07: DEBRIDEMENT SUBCUTANEOUS TISSUE 20 SQ CM/< Comment: LEFT LEG [id number]: DEBRIDEMENT SUBCUTANEOUS TISSUE 20 SQ CM/< Comment: LEFT LEG [id number]: DEBRIDEMENT SUBCUTANEOUS TISSUE 20 SQ CM/< Comment: LEFT LEG [id number]: DEBRIDEMENT SUBCUTANEOUS TISSUE 20 SQ CM/< Comment: LEFT LEG [id number]: DEBRIDEMENT SUBCUTANEOUS TISSUE 20 SQ CM/< Comment: [...] (ASPIRIN, ENTER (more content not included)... Normal [facility] CNCOon 10-28-2023 CNCO Letter Text Normal [facility] CNPNon 10-28-2023 CNPN Telephone (AGSPHWG) MARI LOPEZ ([id number]) 1940 F Date Time Provider Department 10/28/23 [...] No 9. Does this procedure require a emergency medical technician/driver? Yes If yes, has patient been notified that a emergency medical technician/driver is needed and must be present at [...] 24 hr tablet Take by mouth. - Ngbxblsydiw-Eztptixig-Dgp C-Mn (GLUCOSAMINE CHONDROITIN MAXSTR) 500-400 mg cap Take 1 capsule by mouth three times daily. - COMPOUNDED PRESCRIPTION Stair lift - DAILY-LUISITO tablet TAKE 1 TABLET BY MOUTH ONCE DAILY. - lbobzid-ahqvhjtum-knznsox D3 (CALCIUM 500+D) 500 mg(1,250mg) -200 unit [...] body m (more content not included)... Normal [facility] CNPNon 10-27-2023 CNPN Telephone (AGSPINE3) MARI LOPEZ ([id number]) 1940 F Date Time Provider Department 10/27/23 [...] other than patient: n/a Best contact number: [phone] Thank you, Francine De Souza October 27, [...] 24 hr tablet Take by mouth. - Diwzvzkthni-Kmdnhtacq-Ymy C-Mn (GLUCOSAMINE CHONDROITIN MAXSTR) 500-400 mg cap Take 1 capsule by mouth three times daily. - COMPOUNDED PRESCRIPTION Stair lift - DAILY-LUISITO tablet TAKE 1 TABLET BY MOUTH ONCE DAILY. - hsmsgtf-zhdwbknhs-zmuxwpo D3 (CALCIUM 500+D) 500 mg(1,250mg) -200 unit [...] TRUNK SITE (more content not included)... Normal [facility] (SPAA) MARI LOPEZ ([id number]) 1940 F Date Time Provider Department 08/28/23 ROQUE DELGADO [facility] During your visit today, we recorded the [...] 24 hr tablet Take by mouth. - Vclxkxyhmiy-Cupmldcfs-Ffw C-Mn (GLUCOSAMINE CHONDROITIN MAXSTR) 500-400 mg cap Take 1 capsule by mouth three times daily. - COMPOUNDED PRESCRIPTION Stair lift - DAILY-LUISITO tablet TAKE 1 TABLET BY MOUTH ONCE DAILY. - eptowvm-yomnxuddx-wnzyoar D3 (CALCIUM 500+D) 500 mg(1,250mg) -200 unit [...] [1003] 05/07/2005 07/12/2021 INJURY TRUNK SITE NEC [[id number]] 01/16/2006 07/01/2007 Anemia in chronic kidney disease [...] Encounter Status:Closed by MEHDI VALDIVIA on 08/28/23 [facility] [place] 08-27-2023 CNPN Telephone (AGSPINE3) MARI LOPEZ ([id number]) 1940 F Date Time Provider Department 08/27/23 ROQUE DELGADO [facility] During your visit today, we recorded the following information about you: [place] Sofía 08/27/2023 3:02 PM Signed ----- Message from Aaliyah Hoffman sent at 08/27/2023 2:59 PM EDT ----- Regarding: Spine/Lmjl-Vyi-Kjnvntuqa for Shoulder Patient: Mari Lopez Date of : 1940 Primary Care Provider: Lizy Capone MD Patient has been identified by name and Date of (Y/N): y Patient: Mari Lopez Date of : 1940 Provider for this encounter: Lizy Capone MD Reason for the call/escalation: Patient is wanting to do R shoulder injection with delgado Was Patient Referred to [facility]/Seek Emergency Treatment (Y/N): n/a Did Patient Agree (Y/N): n/a Was An Attempt Made To Transfer The Patient To The Office (Y/N): n/a Were You Able To Reach Someone At The Office (Y/N): n/a If Yes - Patient Was Transferred To (Caregivers Name): n/a If No - Which [facility] Leadership Computer Systems Design Analyst Did You Speak With Regarding This Patient: n/a Was an appointment scheduled (Y/N): n Reason patient was requesting visit (RFV/signs and symptoms/diagnosis) : injection Person calling if other than patient: n/a Return call to if other than patient: n/a Best contact number: [phone] Thank you, Aaliyah Hoffman August 27, 2023 [...] 24 hr tablet Take by mouth. - Xcpeyuxydrd-Rcemyrnns-Vii C-Mn (GLUCOSAMINE CHONDROITIN MAXSTR) 500-400 mg cap Take 1 capsule by mouth three times daily. - COMPOUNDED PRESCRIPTION Stair lift - DAILY-LUISITO tablet TAKE 1 TABLET BY MOUTH ONCE DAILY. - xtehuvj-qfucnimqw-izptsoe D3 (CALCIUM 500+D) 500 mg(1,250mg) -200 unit [...] List As (more content not included)... Normal [facility] Absolute lymphocyte countOrd ered By: Ralph Haynes on 06-09-2023 Lymphocytes Auto (Unsp spec) [#/Vol] 1.80 10*3/uL 0.83-4.51 [facility] Automated lymphocyte count a s percentage of total leukocytesOrdered By: Ralph Haynes on 06-09-2023 Lymphocytes/100 WBC Auto (Unsp spec) 39.0 % 19-41 [facility] Basophil percentageOrdered B y: Ralph Haynes on 06-09-2023 Basophil percentage 4.2 mg/dL 2.5-4.9 [facility] Basophils/100 WBC (Bld) 0.7 % 0-1 [facility] Chloride [Moles/Vol] 118 mmol/L 98-107 [facility] Eosinophils/100 WBC (Bld) 8.5 % 0-5 [facility] Glucose [Mass/Vol] 83 mg/dL 74-106 [facility] Hemoglobin (Bld) [Mass/Vol] 10.2 g/dL 12.0-15.0 [facility] Monocytes/100 WBC (Bld) 8.9 % 0-10 [facility] Neutrophils (Bld) [#/Vol] 2.0 10*3/uL 2.0-7.7 [facility] Neutrophils/100 WBC (Bld) 42.7 % 47-70 [facility] Potassium [Moles/Vol] 5.0 mmol/L 3.5-5.1 [facility] Sodium [Moles/Vol] 140 mmol/L 136-145 [facility] WBC (Bld) [#/Vol] 4.6 10*3/uL 4.4-11.0 [facility] Determination of erythrocyte mean corpuscular volume (MCV)Ordered By: Ralph Haynes on 06-09-2023 MCV (RBC) [Entitic vol] 108.0 fL 81-99 [facility] Erythrocyte distribution wid th ratioOrdered By: Ralph Haynes on 06-09-2023 Erythrocyte distribution width (RBC) [Ratio] 13.7 % 11.6-14.6 [facility] Erythrocyte distribution wid th standard deviationOrdered By: Ralph Haynes on 06-09-2023 Erythrocyte distribution width (RBC) [Entitic vol] 54.6 fL 35.1-43.9 [facility] Hematocrit Auto (Bld) [Volum e fraction]Ordered By: Ralph Haynes on 06-09-2023 Hematocrit (Bld) [Volume fraction] 33.6 % 37-47 [facility] Immature granulocytes/100 WB C Auto (Bld)Ordered By: Ralph Haynes on 06-09-2023 Immature granulocytes/100 WBC (Bld) 0.200 % 0.0-0.9 [facility] Comment on above: IG% - Immature Granu locytes (promyelocytes, myelocytes and metamyelocytes) > 1% indicates that a LEFT SHIFT is Present. Laboratory - Chemistry and C hemistry - challengeOrdered By: Ralph Haynes on 06-09-2023 CO2 [Moles/Vol] 18.0 mmol/L 21.0-32.0 [facility] Magnesium [Mass/Vol] 2.5 mg/dL 1.6-2.6 [facility] Urea nitrogen/Creatinine [Mass ratio] 36.2 mg/mg 10-20 [facility] Laboratory - Hematology and Cell countsOrdered By: Ralph Haynes on 06-09-2023 MCH (RBC) [Entitic mass] 32.8 pg 27.0-32.0 [facility] MCHC (RBC) [Mass/Vol] 30.4 g/dL 32-36 [facility] Nucleated RBC/100 WBC (Bld) [Ratio] 0 % 0-5 [facility] Platelet mean volume (Bld) [Entitic vol] 12.6 fL 6.2-12.0 [facility] Platelets (Bld) [#/Vol] 188 10*3/uL 150-450 [facility] No Panel InformationOrdered By: Ralph Haynes on 06-09-2023 Estimated Creatinine Clearance Calc 30.22 ml/min [facility] Estimated GFR (MDRD) Amer 39 mL/min >60 [facility] Comment on above: GFR Calc Estimated GFR (MDRD) Non-Af Amer 32 mL/min >60 [facility] Comment on above: Non- GFR Calc RBC Auto (Bld) [#/Vol]Ordere d By: Ralph Haynes on 06-09-2023 RBC (Bld) [#/Vol] 3.11 10*6/uL 4.2-5.4 [facility] Serum or plasma calcium farheen urement (mass/volume)Ordered By: Ralph Haynes on 06-09-2023 Calcium [Mass/Vol] 8.2 mg/dL 8.5-10.1 [facility] Serum or plasma creatinine m easurement (mass/volume)Ordered By: Ralph Haynes on 06-09-2023 Creatinine [Mass/Vol] 1.63 mg/dL 0.55-1.02 [facility] Comment on above: The validity of the calculated GFR & GFRAA in patients over 70 years has not been determined. Clinical correlation is essential. Serum or plasma urea nitroge n measurement (mass/volume)Ordered By: Ralph Haynes on 06-09-2023 Urea nitrogen [Mass/Vol] 59 mg/dL 7-18 [facility] Thin prep Papanicolaou smear with manual screeningOrdered By: Ralph Haynes on 06-09-2023 Thin prep Papanicolaou smear with manual screening 4 5-15 [facility] Basophil percentageOrdered B y: Ralph Smith on 06-08-2023 Bilirubin [Mass/Vol] 0.30 mg/dL 0.20-1.00 [facility] Comment on above: For patients on eltr ombopag therapy, use of Dimension [place] TBIL is not recommended. Protein [Mass/Vol] 6.5 g/dL 6.4-8.2 [facility] Laboratory - Chemistry and C hemistry - challengeOrdered By: Ralph Smith on 06-08-2023 Albumin/Globulin [Mass ratio] 0.9 {ratio} 0.9-2.4 [facility] ALP [Catalytic activity/Vol] 82 U/L 45-117 [facility] ALT [Catalytic activity/Vol] 26 U/L 13-56 [facility] Globulin (S) [Mass/Vol] 3.4 g/dL 2.2-4.2 [facility] Serum or plasma thyroid stim ulating hormone (TSH) measurement (units/volume)Ordered By: Ralph Smith on 06-08-2023 TSH Qn 5.75 uIU/mL 0.358-3.74 [facility] Thin prep Papanicolaou smear with manual screeningOrdered By: Ralph Smith on 06-08-2023 Thin prep Papanicolaou smear with manual screening 3.1 g/dL 3.2-5.0 [facility] Thin prep Papanicolaou smear with manual screening 27 U/L 15-37 [facility] Absolute lymphocyte countOrd ered By: Weston Delacruz on 06-07-2023 Lymphocytes Auto (Unsp spec) [#/Vol] 1.14 10*3/uL 0.83-4.51 [facility] Automated lymphocyte count a s percentage of total leukocytesOrdered By: Weston Delacruz on 06-07-2023 Lymphocytes/100 WBC Auto (Unsp spec) 14.2 % 19-41 [facility] Basophil percentageOrdered B y: Weston Delacruz on 06-07-2023 Basophils/100 WBC (Bld) 1.0 % 0-1 [facility] Bilirubin [Mass/Vol] 0.40 mg/dL 0.20-1.00 [facility] Comment on above: For patients on eltr ombopag therapy, use of Dimension [place] TBIL is not recommended. Chloride [Moles/Vol] 112 mmol/L 98-107 [facility] Eosinophils/100 WBC (Bld) 3.9 % 0-5 [facility] Glucose [Mass/Vol] 102 mg/dL 74-106 [facility] Comment on above: Fasting Glucose resu lt from 100 to 125 mg/dL suggests IMPAIRED HOMEOSTASIS per A.D.A. criteria. Hemoglobin (Bld) [Mass/Vol] 12.6 g/dL 12.0-15.0 [facility] Monocytes/100 WBC (Bld) 5.8 % 0-10 [facility] Neutrophils (Bld) [#/Vol] 6.0 10*3/uL 2.0-7.7 [facility] Neutrophils/100 WBC (Bld) 74.9 % 47-70 [facility] Potassium [Moles/Vol] 4.6 mmol/L 3.5-5.1 [facility] Comment on above: Moderate Hemolysis, Result may be falsely increased. Protein [Mass/Vol] 7.6 g/dL 6.4-8.2 [facility] Sodium [Moles/Vol] 139 mmol/L 136-145 [facility] WBC (Bld) [#/Vol] 8.1 10*3/uL 4.4-11.0 [facility] Determination of erythrocyte mean corpuscular volume (MCV)Ordered By: Weston Delacruz on 06-07-2023 MCV (RBC) [Entitic vol] 107.3 fL 81-99 [facility] Erythrocyte distribution wid th ratioOrdered By: Weston Delacruz on 06-07-2023 Erythrocyte distribution width (RBC) [Ratio] 13.7 % 11.6-14.6 [facility] Erythrocyte distribution wid th standard deviationOrdered By: Weston Delacruz on 06-07-2023 Erythrocyte distribution width (RBC) [Entitic vol] 54.8 fL 35.1-43.9 [facility] Hematocrit Auto (Bld) [Volum e fraction]Ordered By: Weston Delacruz on 06-07-2023 Hematocrit (Bld) [Volume fraction] 41.1 % 37-47 [facility] Immature granulocytes/100 WB C Auto (Bld)Ordered By: Weston Delacruz on 06-07-2023 Immature granulocytes/100 WBC (Bld) 0.200 % 0.0-0.9 [facility] Comment on above: IG% - Immature Granu locytes (promyelocytes, myelocytes and metamyelocytes) > 1% indicates that a LEFT SHIFT is Present. Laboratory - Chemistry and C hemistry - challengeOrdered By: Weston Delacruz on 06-07-2023 Albumin/Globulin [Mass ratio] 0.9 {ratio} 0.9-2.4 [facility] ALP [Catalytic activity/Vol] 82 U/L 45-117 [facility] ALT [Catalytic activity/Vol] 23 U/L 13-56 [facility] CO2 [Moles/Vol] 20.0 mmol/L 21.0-32.0 [facility] Globulin (S) [Mass/Vol] 3.9 g/dL 2.2-4.2 [facility] Urea nitrogen/Creatinine [Mass ratio] 36.0 mg/mg 10-20 [facility] Laboratory - Hematology and Cell countsOrdered By: Weston Delacruz on 06-07-2023 MCH (RBC) [Entitic mass] 32.9 pg 27.0-32.0 [facility] MCHC (RBC) [Mass/Vol] 30.7 g/dL 32-36 [facility] Nucleated RBC/100 WBC (Bld) [Ratio] 0 % 0-5 [facility] Platelet mean volume (Bld) [Entitic vol] 12.5 fL 6.2-12.0 [facility] Platelets (Bld) [#/Vol] 248 10*3/uL 150-450 [facility] No Panel InformationOrdered By: Weston Delacruz on 06-07-2023 Estimated Creatinine Clearance Calc 19.95 ml/min [facility] Estimated GFR (MDRD) Amer 25 mL/min >60 [facility] Comment on above: GFR Calc Estimated GFR (MDRD) Non-Af Amer 20 mL/min >60 [facility] Comment on above: Non- GFR Calc RBC Auto (Bld) [#/Vol]Ordere d By: Weston Delacruz on 06-07-2023 RBC (Bld) [#/Vol] 3.83 10*6/uL 4.2-5.4 [facility] Serum or plasma calcium farheen urement (mass/volume)Ordered By: Weston Delacruz on 06-07-2023 Calcium [Mass/Vol] 9.3 mg/dL 8.5-10.1 [facility] Serum or plasma creatinine m easurement (mass/volume)Ordered By: Weston Delacruz on 06-07-2023 Creatinine [Mass/Vol] 2.42 mg/dL 0.55-1.02 [facility] Comment on above: The validity of the calculated GFR & GFRAA in patients over 70 years has not been determined. Clinical correlation is essential. Serum or plasma urea nitroge n measurement (mass/volume)Ordered By: Weston Delacruz on 06-07-2023 Urea nitrogen [Mass/Vol] 87 mg/dL 7-18 [facility] Thin prep Papanicolaou smear with manual screeningOrdered By: Weston Delacruz on 06-07-2023 Thin prep Papanicolaou smear with manual screening 3.7 g/dL 3.2-5.0 [facility] Thin prep Papanicolaou smear with manual screening 23 U/L 15-37 [facility] Comment on above: Moderate Hemolysis, Result may be falsely increased. Thin prep Papanicolaou smear with manual screening 7 5-15 [facility] CNCOon 06-04-2023 CNCO Letter Text Normal [facility] CNPNon 06-04-2023 CJN Telephone (SPAGWO) MARI LOPEZ ([id number]) 1940 F Date Time Provider Department 06/04/23 REBEKAH BOBO SPAGWO During your visit today, we recorded [...] Yes 9. Does this procedure require a emergency medical technician/driver? Yes If yes, has patient been notified that a emergency medical technician/driver is needed and must be present at [...] to take for RFA. Instructed patient to picking tech and bring to appointment as it must be taken under the supervision of our clinical staff. Also instructed patient to arrive 45 minutes early to appointment and that emergency medical technician/driver must stay for the entirety of the procedure. Routed to Rebekah to send in medication. Rebekah Barrett, NANCI.SAGGER MAKER 06/04/2023 1:31 PM Signed oarrs was checked- no medication discrepancy or aberrations noted Xanax sent Rebekah Bobo APRN.SAGGER MAKER Lora Valles LPN 06/04/2023 1:40 PM Signed Spoke with [...] Date Reviewed: 06/02/2023 Reviewed by: Rebekah Bobo APRN.SAGGER MAKER - Fully Assessed Reason for Visit: Injection [...] 24 hr tablet Take by mouth. - Vdgghvcjuco-Jnoxfkiuj-Ree C-Mn (GLUCOSAMINE CHONDROITIN MAXSTR) 500-400 mg cap Take 1 capsule by mouth three times daily. - COMPOUNDED PRESCRIPTION Stair lift - DAILY-LUISITO tablet TAKE 1 TABLET BY MOUTH ONCE DAILY. - jgfgudt-jmxnpjnln-vtvrvty D3 (CALCIUM 500+D) 500 mg(1,250mg) -200 unit per tablet Take 1 tablet by mouth twice daily with meals. - vitamin b comple (more content not included)... [facility] ([id number]) 1940 F Date Time Provider Department 05/20/23 [...] 24 hr tablet Take by mouth. - Ptilyrzpqtp-Xswtnzdbr-Tpv C-Mn (GLUCOSAMINE CHONDROITIN MAXSTR) 500-400 mg cap Take 1 capsule by mouth three times daily. - COMPOUNDED PRESCRIPTION Stair lift - DAILY-LUISITO tablet TAKE 1 TABLET BY MOUTH ONCE DAILY. - mgxftvs-kfqcwmnxg-treklog D3 (CALCIUM 500+D) 500 mg(1,250mg) -200 unit [...] [1003] 05/07/2005 07/12/2021 INJURY TRUNK SITE NEC [CAT6208] 01/16/2006 07/01/2007 Anemia in chronic kidney disease [...] Encounter Status:Closed by JORJE NAGEL on 05/20/23 [facility] US OTHER-INJECTION (POC) DONATO USE ONLYon 05-18-2023 [facility] CNCOon 04-16-2023 CNCO Letter Text [facility] CNOVon 04-16-2023 CNOV Office Visit (SPAGWO ) MARI LOPEZ ([id number]) 1940 F Date Time Provider Department 04/16/23 8:15 AM ROQUE DELGADO During your visit today, we recorded the following information about you: Pulse Respiration Weight 73/minute 16/minute 98.9 kg Roque Delgado MD 04/16/2023 8:43 AM Signed [facility] Today's Date: 04/16/2023 Last visit: 01/15/2023 DH 03/02/2023 Name: Mari Lopez : 1940 Purpose: [...] current dose Flexeril 10mg TID PRN Functional Worship: No changes-continue current regimen Additional Studies: X-ray [...] - Initial HPI (Obtained by Avis Marrufo APRN.SAGGER MAKER ). From 03/2022 - She previously inquired [...] BL L4/5 (more content not included)... Normal [facility] CNPNon 04-16-2023 CNPN Telephone (SPAGWO) MARI LOPEZ ([id number]) 1940 F Date Time Provider Department 04/16/23 ROQUE DELGADO During your visit today, we [...] No 9. Does this procedure require a emergency medical technician/driver? Yes If yes, has patient been notified that a emergency medical technician/driver is needed and must be present at [...] 24 hr tablet Take by mouth. - Yogexdjszkq-Moaxzncju-Csa C-Mn (GLUCOSAMINE CHONDROITIN MAXSTR) 500-400 mg cap Take 1 capsule by mouth three times daily. - COMPOUNDED PRESCRIPTION Stair lift - DAILY-LUISITO tablet TAKE 1 TABLET BY MOUTH ONCE DAILY. - thjfejz-gerhuclhl-odpuahx D3 (CALCIUM 500+D) 500 mg(1,250mg) -200 unit [...] zinc, Glucosamine-chondroitin (more content not included)... Normal [facility] XR Chest PA and Lateralon IMPRESSION: No acute radiographic abnormality. Loftsman/Woman: CHEIKH Transcribe Date/Time: Mar 31 2023 11:37A Dictated by : JOSHUA BURNETT MD This examination was interpreted and the report reviewed and electronically signed by: JOSHUA BURNETT MD on Mar 31 2023 11:37AM EST DIVISION OF RADIOLOGY * * *Final Report* [...] the thoracic spine. DIVISION OF RADIOLOGY Provider, [facility] - 03/31/2023 * * *Final Report* [...] spine. IMPRESSION IMPRESSION: No acute radiographic abnormality. Loftsman/Woman: PSCB Transcribe Date/Time: Mar 31 2023 11:37A Dictated by : JOSHUA BURNETT MD This examination was interpreted and the report reviewed and electronically signed by: JOSHUA BURNETT MD on Mar 31 2023 11:37AM EST [facility] Radiology Study observation (narrative) [facility] XR Chest PA and LateralOrder ed By: Ccf Provider on 03-31-2023 [facility] CNOVon 01-15-2023 CNOV Office Visit (SPAGWO ) MARI LOPEZ ([id number]) 1940 F Date Time Provider Department 01/15/23 8:30 AM ROQUE DELGADO SPAGWO During your visit today, we recorded the following information about you: Pulse Respiration 71/minute 18/minute Roque Delgado MD 01/15/2023 8:58 AM Signed [facility] Name: Mari Lopez : 1940 Purpose: [...] are with (more content not included)... Normal [facility] CNPNon 01-15-2023 CNPN Telephone (SPAGWO) MARI LOPEZ ([id number]) 1940 F Date Time Provider Department 01/15/23 ROQUE DELGADO [employer] During your visit today, we recorded the [...] No 9. Does this procedure require a emergency medical technician/driver? No If yes, has patient been notified that a emergency medical technician/driver is needed and must be present at [...] CAPSULE BY MOUTH THREE TIMES DAILY. - eghkibd-rvjxgaazb-duujwre D3 (CALCIUM 500+D) 500 mg(1,250mg) -200 unit [...] 1 tablet by mouth every afternoon. - Whpgerfdygf-Qzcuqnfhr-Dam C-Mn (GLUCOSAMINE CHONDROITIN MAXSTR) 500-400 mg cap [...] ASTHMA UNSPEC (more content not included)... Normal [facility] XR SHOULDER LIMITED 2V AP/TR UE AP LEFTon 01-15-2023 [facility] XR SHOULDER [id number] AP/BRENDAN E AP RIGHTon 01-15-2023 [facility] Basophil percentageOrdered B y: Gautam Hardy on 10-15-2022 Basophil percentage 4.2 mg/dL 2.5-4.9 [facility] Chloride [Moles/Vol] 110 mmol/L 98-107 [facility] Glucose [Mass/Vol] 83 mg/dL 74-106 [facility] Potassium [Moles/Vol] 4.2 mmol/L 3.5-5.1 [facility] Sodium [Moles/Vol] 141 mmol/L 136-145 [facility] Laboratory - Chemistry and C hemistry - challengeOrdered By: Gautam Hardy on 10-15-2022 CO2 [Moles/Vol] 25.0 mmol/L 21.0-32.0 [facility] Urea nitrogen/Creatinine [Mass ratio] 25.4 mg/mg 10-20 [facility] No Panel InformationOrdered By: Gautam Hardy on 10-15-2022 Estimated GFR (MDRD) Amer 46 mL/min >60 [facility] Comment on above: GFR Calc Estimated GFR (MDRD) Non-Af Amer 38 mL/min >60 [facility] Comment on above: Non- GFR Calc Serum or plasma albumin farheen urement (mass/volume)Ordered By: Gautam Hardy on 10-15-2022 Albumin [Mass/Vol] 3.1 g/dL 3.2-5.0 [facility] Serum or plasma calcium farheen urement (mass/volume)Ordered By: Gautam Hardy on 10-15-2022 Calcium [Mass/Vol] 8.4 mg/dL 8.5-10.1 [facility] Serum or plasma creatinine m easurement (mass/volume)Ordered By: Gautam Hardy on 10-15-2022 Creatinine [Mass/Vol] 1.42 mg/dL 0.55-1.02 [facility] Comment on above: The validity of the calculated GFR & GFRAA in patients over 70 years has not been determined. Clinical correlation is essential. Serum or plasma urea nitroge n measurement (mass/volume)Ordered By: Gautam Hardy on 10-15-2022 Urea nitrogen [Mass/Vol] 36 mg/dL 7-18 [facility] XR FOOT GENERAL 3V AP/LAT/OB L RIGHTon 07-31-2022 [facility] Absolute lymphocyte countOrd ered By: Dr. Jackson on 07-25-2022 Lymphocytes Auto (Unsp spec) [#/Vol] 1.41 10*3/uL 0.83-4.51 [facility] Basophil percentageOrdered B y: Dr. Jackson on 07-25-2022 Basophils/100 WBC (Bld) 0.8 % 0-1 [facility] Chloride [Moles/Vol] 110 mmol/L 98-107 [facility] Eosinophils/100 WBC (Bld) 3.4 % 0-5 [facility] Glucose [Mass/Vol] 92 mg/dL 74-106 [facility] Neutrophils (Bld) [#/Vol] 4.4 10*3/uL 2.0-7.7 [facility] Neutrophils/100 WBC (Bld) 67.6 % 47-70 [facility] Potassium [Moles/Vol] 4.4 mmol/L 3.5-5.1 [facility] Comment on above: Slight Hemolysis, Re sult may be falsely increased. Sodium [Moles/Vol] 139 mmol/L 136-145 [facility] WBC (Bld) [#/Vol] 6.5 10*3/uL 4.4-11.0 [facility] Blood erythrocytes count (nu mber/volume)Ordered By: Dr. Jackson on 07-25-2022 RBC (Bld) [#/Vol] 3.79 10*6/uL 4.2-5.4 [facility] Blood hemoglobin measurement (mass/volume)Ordered By: Dr. Jackson on 07-25-2022 Hemoglobin (Bld) [Mass/Vol] 12.8 g/dL 12.0-15.0 [facility] Blood lymphocytes/100 leukoc ytesOrdered By: Dr. Jackson on 07-25-2022 Lymphocytes/100 WBC (Bld) 21.7 % 19-41 [facility] Blood monocytes/100 leukocyt esOrdered By: Dr. Jackson on 07-25-2022 Monocytes/100 WBC (Bld) 6.2 % 0-10 [facility] Blood platelet mean volumeOr dered By: Dr. Jackson on 07-25-2022 Platelet mean volume (Bld) [Entitic vol] 12.8 fL 6.2-12.0 [facility] Determination of erythrocyte mean corpuscular volume (MCV)Ordered By: Dr. Jackson on 07-25-2022 MCV (RBC) [Entitic vol] 108.4 fL 81-99 [facility] Hematocrit Auto (Bld) [Volum e fraction]Ordered By: Dr. Jackson on 07-25-2022 Hematocrit (Bld) [Volume fraction] 41.1 % 37-47 [facility] Laboratory - Chemistry and C hemistry - challengeOrdered By: Dr. Jackson on 07-25-2022 CO2 [Moles/Vol] 29.0 mmol/L 21.0-32.0 [facility] Urea nitrogen/Creatinine [Mass ratio] 28.7 mg/mg 10-20 [facility] Laboratory - Hematology and Cell countsOrdered By: Dr. Jackson on 07-25-2022 Erythrocyte distribution width (RBC) [Entitic vol] 51.3 fL 35.1-43.9 [facility] Erythrocyte distribution width (RBC) [Ratio] 12.8 % 11.6-14.6 [facility] Immature granulocytes/100 WBC (Bld) 0.300 % 0.0-0.9 [facility] Comment on above: IG% - Immature Granu locytes (promyelocytes, myelocytes and metamyelocytes) > 1% indicates that a LEFT SHIFT is Present. MCH (RBC) [Entitic mass] 33.8 pg 27.0-32.0 [facility] Nucleated RBC/100 WBC (Bld) [Ratio] 0 % 0-5 [facility] MCHC Auto (RBC) [Mass/Vol]Or dered By: Dr. Jackson on 07-25-2022 MCHC (RBC) [Mass/Vol] 31.1 g/dL 32-36 [facility] No Panel InformationOrdered By: Dr. Jackson on 07-25-2022 Estimated GFR (MDRD) Amer 51 mL/min >60 [facility] Comment on above: GFR Calc Estimated GFR (MDRD) Non-Af Amer 42 mL/min >60 [facility] Comment on above: Non- GFR Calc Platelets bldOrdered By: Dr. Jackson on 07-25-2022 Platelets (Bld) [#/Vol] 219 10*3/uL 150-450 [facility] Serum or plasma calcium farheen urement (mass/volume)Ordered By: Dr. Jackson on 07-25-2022 Calcium [Mass/Vol] 8.8 mg/dL 8.5-10.1 [facility] Serum or plasma creatinine m easurement (mass/volume)Ordered By: Dr. Jackson on 07-25-2022 Creatinine [Mass/Vol] 1.29 mg/dL 0.55-1.02 [facility] Comment on above: The validity of the calculated GFR & GFRAA in patients over 70 years has not been determined. Clinical correlation is essential. Serum or plasma urea nitroge n measurement (mass/volume)Ordered By: Dr. Jackson on 07-25-2022 Urea nitrogen [Mass/Vol] 37 mg/dL 7-18 [facility] [facility] Papanicolaou smear with manual screeningOrdered By: Dr. Jackson on 07-25-2022 Thin prep Papanicolaou smear with manual screening 0 5-15 [facility] Basophil percentageOrdered B y: Dr. Acosta on 06-11-2022 Chloride [Moles/Vol] 110 mmol/L 98-107 [facility] Glucose [Mass/Vol] 105 mg/dL 74-106 [facility] Comment on above: Fasting Glucose resu lt from 100 to 125 mg/dL suggests IMPAIRED HOMEOSTASIS per A.D.A. criteria. Potassium [Moles/Vol] 4.1 mmol/L 3.5-5.1 [facility] Sodium [Moles/Vol] 142 mmol/L 136-145 [facility] Laboratory - Chemistry and C hemistry - challengeOrdered By: Dr. Acosta on 06-11-2022 CO2 [Moles/Vol] 25.0 mmol/L 21.0-32.0 [facility] Urea nitrogen/Creatinine [Mass ratio] 26.4 mg/mg 10-20 [facility] No Panel InformationOrdered By: Dr. Acosta on 06-11-2022 Estimated GFR (MDRD) Amer 55 mL/min >60 [facility] Comment on above: GFR Calc Estimated GFR (MDRD) Non-Af Amer 46 mL/min >60 [facility] Comment on above: Non- GFR Calc Serum or plasma calcium farheen urement (mass/volume)Ordered By: Dr. Acosta on 06-11-2022 Calcium [Mass/Vol] 8.8 mg/dL 8.5-10.1 [facility] Serum or plasma creatinine m easurement (mass/volume)Ordered By: Dr. Acosta on 06-11-2022 Creatinine [Mass/Vol] 1.21 mg/dL 0.55-1.02 [facility] Comment on above: The validity of the calculated GFR & GFRAA in patients over 70 years has not been determined. Clinical correlation is essential. Serum or plasma urea nitroge n measurement (mass/volume)Ordered By: Dr. Acosta on 06-11-2022 Urea nitrogen [Mass/Vol] 32 mg/dL 7-18 [facility] Thin prep Papanicolaou smear with manual screeningOrdered By: Dr. Acosta on 06-11-2022 Thin prep Papanicolaou smear with manual screening 7 5-15 [facility] Basophil percentageOrdered B y: Dr. Acosta on 05-14-2022 Basophil percentage 2.9 mg/dL 2.5-4.9 [facility] Chloride [Moles/Vol] 111 mmol/L 98-107 [facility] Glucose [Mass/Vol] 117 mg/dL 74-106 [facility] Comment on above: Fasting Glucose resu lt from 100 to 125 mg/dL suggests IMPAIRED HOMEOSTASIS per A.D.A. criteria. Potassium [Moles/Vol] 3.7 mmol/L 3.5-5.1 [facility] Sodium [Moles/Vol] 143 mmol/L 136-145 [facility] Laboratory - Chemistry and C hemistry - challengeOrdered By: Dr. Acosta on 05-14-2022 CO2 [Moles/Vol] 21.0 mmol/L 21.0-32.0 [facility] Urea nitrogen/Creatinine [Mass ratio] 28.0 mg/mg 10-20 [facility] No Panel InformationOrdered By: Dr. Acosta on 05-14-2022 Estimated GFR (MDRD) Amer 39 mL/min >60 [facility] Comment on above: GFR Calc Estimated GFR (MDRD) Non-Af Amer 32 mL/min >60 [facility] Comment on above: Non- GFR Calc Serum or plasma albumin farheen urement (mass/volume)Ordered By: Dr. Acosta on 05-14-2022 Albumin [Mass/Vol] 3.0 g/dL 3.2-5.0 [facility] Serum or plasma calcium farheen urement (mass/volume)Ordered By: Dr. Acosta on 05-14-2022 Calcium [Mass/Vol] 8.8 mg/dL 8.5-10.1 [facility] Serum or plasma creatinine m easurement (mass/volume)Ordered By: Dr. Acosta on 05-14-2022 Creatinine [Mass/Vol] 1.64 mg/dL 0.55-1.02 [facility] Comment on above: The validity of the calculated GFR & GFRAA in patients over 70 years has not been determined. Clinical correlation is essential. Serum or plasma urea nitroge n measurement (mass/volume)Ordered By: Dr. Acosta on 05-14-2022 Urea nitrogen [Mass/Vol] 46 mg/dL 7-18 [facility] No Panel Informationon 05-13 [facility] No Panel Informationon 04-29 [facility] Culture, urineOrdered By: Dr Luis Fernando Acosta on 03-20-2022 Bacteria identified Cx Nom (U) Positive [facility] Basophil percentageOrdered B y: Dr. Acosta on 03-19-2022 Basophil percentage 3.5 mg/dL 2.5-4.9 [facility] Chloride [Moles/Vol] 113 mmol/L 98-107 [facility] Glucose [Mass/Vol] 104 mg/dL 74-106 [facility] Comment on above: Fasting Glucose resu lt from 100 to 125 mg/dL suggests IMPAIRED HOMEOSTASIS per A.D.A. criteria. Potassium [Moles/Vol] 4.6 mmol/L 3.5-5.1 [facility] Comment on above: Slight Hemolysis, Re sult may be falsely increased. Sodium [Moles/Vol] 142 mmol/L 136-145 [facility] Laboratory - Chemistry and C hemistry - challengeOrdered By: Dr. Acosta on 03-19-2022 CO2 [Moles/Vol] 18.0 mmol/L 21.0-32.0 [facility] Urea nitrogen/Creatinine [Mass ratio] 36.2 mg/mg 10-20 [facility] No Panel InformationOrdered By: Dr. Acosta on 03-19-2022 Estimated GFR (MDRD) Amer 47 mL/min >60 [facility] Comment on above: GFR Calc Estimated GFR (MDRD) Non-Af Amer 39 mL/min >60 [facility] Comment on above: Non- GFR Calc Serum or plasma albumin farheen urement (mass/volume)Ordered By: Dr. Acosta on 03-19-2022 Albumin [Mass/Vol] 3.3 g/dL 3.2-5.0 [facility] Serum or plasma calcium farheen urement (mass/volume)Ordered By: Dr. Acosta on 03-19-2022 Calcium [Mass/Vol] 8.8 mg/dL 8.5-10.1 [facility] Serum or plasma creatinine m easurement (mass/volume)Ordered By: Dr. Acosta on 03-19-2022 Creatinine [Mass/Vol] 1.38 mg/dL 0.55-1.02 [facility] Comment on above: The validity of the calculated GFR & GFRAA in patients over 70 years has not been determined. Clinical correlation is essential. Serum or plasma urea nitroge n measurement (mass/volume)Ordered By: Dr. Acosta on 03-19-2022 Urea nitrogen [Mass/Vol] 50 mg/dL 7-18 [facility] Culture, urineOrdered By: Dr Luis Fernando Acosta on 03-08-2022 Bacteria identified Cx Nom (U) Escherichia coli [facility] Basophil percentageOrdered B y: Dr. Jackson on 03-04-2022 Basophil percentage 10-25 SEEN /hpf 0-5 [facility] Basophil percentage 3.7 mg/dL 2.5-4.9 [facility] Bilirubin [Mass/Vol] 0.40 mg/dL 0.20-1.00 [facility] Comment on above: For patients on eltr ombopag therapy, use of Dimension [place] TBIL is not recommended. Chloride [Moles/Vol] 115 mmol/L 98-107 [facility] Cholesterol [Mass/Vol] 162 mg/dL <200 [facility] Comment on above: <200 mg/dL Desirable 200-240 mg/dL Borderline >240 mg/dL High Risk Glucose [Mass/Vol] 102 mg/dL 74-106 [facility] Comment on above: Fasting Glucose resu lt from 100 to 125 mg/dL suggests IMPAIRED HOMEOSTASIS per A.D.A. criteria. Potassium [Moles/Vol] 4.0 mmol/L 3.5-5.1 [facility] Protein [Mass/Vol] 6.8 g/dL 6.4-8.2 [facility] Sodium [Moles/Vol] 145 mmol/L 136-145 [facility] Triglyceride [Mass/Vol] 312 mg/dL <199 [facility] Comment on above: The drugs N-Acetylcy steine and Metamizole may falsely depress this assay.Serum Triglycerides Reference Interval Normal <150 mg/dL Borderline high 150 - 199 mg/dL High 200 - 499 mg/dL Very High > or = 500 mg/dL Bilirubin Test strip Ql (U)O rdered By: Dr. Jackson on 03-04-2022 Bilirubin Ql (U) Negative Negative [facility] Direct bilirubinOrdered By: Dr. Jackson on 03-04-2022 Bilirubin.direct [Mass/Vol] 0.13 mg/dL 0.00-0.30 [facility] Ketones Test strip Ql (U)Ord ered By: Dr. Jackson on 03-04-2022 Ketones Ql (U) Negative Negative [facility] Laboratory - Chemistry and C hemistry - challengeOrdered By: Dr. Jackson on 03-04-2022 ALP [Catalytic activity/Vol] 78 U/L 45-117 [facility] ALT [Catalytic activity/Vol] 25 U/L 13-56 [facility] CO2 [Moles/Vol] 23.0 mmol/L 21.0-32.0 [facility] Globulin (S) [Mass/Vol] 3.8 g/dL 2.2-4.2 [facility] Urea nitrogen/Creatinine [Mass ratio] 26.4 mg/mg 10-20 [facility] Mucus LM Ql (Urine sed)Order ed By: Dr. Jackson on 03-04-2022 Mucus Ql (Urine sed) 0 SEEN /hpf [facility] Nitrite Test strip Ql (U)Ord ered By: Dr. Jackson on 03-04-2022 Nitrite Ql (U) Positive Negative [facility] No Panel InformationOrdered By: Dr. Jackson on 03-04-2022 Estimated GFR (MDRD) Amer 39 mL/min >60 [facility] Comment on above: GFR Calc Estimated GFR (MDRD) Non-Af Amer 32 mL/min >60 [facility] Comment on above: Non- GFR Calc Protein Test strip Ql (U)Ord ered By: Dr. Jackson on 03-04-2022 Protein Ql (U) 15 mg/dl Negative [facility] Serum or plasma albumin farheen urement (mass/volume)Ordered By: Dr. Jackson on 03-04-2022 Albumin [Mass/Vol] 3.0 g/dL 3.2-5.0 [facility] Serum or plasma calcium farheen urement (mass/volume)Ordered By: Dr. Jackson on 03-04-2022 Calcium [Mass/Vol] 8.4 mg/dL 8.5-10.1 [facility] Serum or plasma cholesterol in HDL measurement (mass/volume)Ordered By: Dr. Jackson on 03-04-2022 Cholesterol in HDL [Mass/Vol] 51 mg/dL >40 [facility] Comment on above: The drugs N-Acetylcy steine and Metamizole may falsely depress this assay. Reference Range HDL <40 mg/dL Low HDL Cholesterol HDL >or= 60 mg/dL High HDL Cholesterol Serum or plasma cholesterol in VLDL measurement (mass/volume)Ordered By: Dr. Jackson on 03-04-2022 Cholesterol in VLDL [Mass/Vol] 62 mg/dL 5-40 [facility] Serum or plasma creatinine m easurement (mass/volume)Ordered By: Dr. Jackson on 03-04-2022 Creatinine [Mass/Vol] 1.63 mg/dL 0.55-1.02 [facility] Comment on above: The validity of the calculated GFR & GFRAA in patients over 70 years has not been determined. Clinical correlation is essential. Serum or plasma low density lipoprotein (LDL) cholesterol measurement (mass/volume)Ordered By: Dr. Jackson on 03-04-2022 Cholesterol in LDL [Mass/Vol] 49 mg/dL 0-130 [facility] Serum or plasma urea nitroge n measurement (mass/volume)Ordered By: Dr. Jackson on 03-04-2022 Urea nitrogen [Mass/Vol] 43 mg/dL 7-18 [facility] Squamous epithelial cells de tection in urine sediment by light microscopyOrdered By: Dr. Jackson on 03-04-2022 Epithelial cells.squamous LM Ql (Urine sed) 0-5 SEEN /hpf 5-10 [facility] Thin prep Papanicolaou smear with manual screeningOrdered By: Dr. Jackson on 03-04-2022 Thin prep Papanicolaou smear with manual screening 19 U/L 15-37 [facility] Thin prep Papanicolaou smear with manual screening 7 5-15 [facility] Urine blood detectionOrdered By: Dr. Jackson on 03-04-2022 RBC Ql (U) 25 /ul Negative [facility] RBC Ql (U) 0 SEEN /hpf 0-5 [facility] Urine clarityOrdered By: Dr. Jackson on 03-04-2022 Clarity (U) Sl. Cloudy Clear [facility] Urine color determinationOrd ered By: Dr. Jackson on 03-04-2022 Color (U) Yellow Yellow [facility] Urine glucose detectionOrder ed By: Dr. Jackson on 03-04-2022 Glucose Ql (U) Normal mg/dl Normal [facility] Urine leukocyte esterase det ection by dipstickOrdered By: Dr. Jackson on 03-04-2022 Leukocyte esterase Test strip Ql (U) 500 /ul Negative [facility] Urine pHOrdered By: Dr. Marge castle on 03-04-2022 pH (U) 5.0 [pH] 5.0 - 8.0 [facility] Urine sediment bacteria coun t by microscopy (number/high power field)Ordered By: Dr. Jackson on 03-04-2022 Bacteria LM.HPF (Urine sed) [#/Area] 1 /[HPF] None Seen [facility] Urine specific gravity measu rementOrdered By: Dr. Jackson on 03-04-2022 Specific gravity (U) [Rel density] 1.015 1.002-1.03 0 [facility] Urobilinogen Auto test strip Ql (U)Ordered By: Dr. Jackson on 03-04-2022 Urobilinogen Ql (U) Normal mg/dl Normal [facility] Basophil percentageOrdered B y: Dr. Jackson on 01-28-2022 Chloride [Moles/Vol] 111 mmol/L 98-107 [facility] Glucose [Mass/Vol] 93 mg/dL 74-106 [facility] Potassium [Moles/Vol] 4.2 mmol/L 3.5-5.1 [facility] Sodium [Moles/Vol] 142 mmol/L 136-145 [facility] Laboratory - Chemistry and C hemistry - challengeOrdered By: Dr. Jackson on 01-28-2022 CO2 [Moles/Vol] 25.0 mmol/L 21.0-32.0 [facility] Urea nitrogen/Creatinine [Mass ratio] 30.1 mg/mg 10 [facility] No Panel InformationOrdered By: Dr. Jackson on 01-28-2022 Estimated GFR (MDRD) Amer 48 mL/min >60 [facility] Comment on above: GFR Calc Estimated GFR (MDRD) Non-Af Amer 40 mL/min >60 [facility] Comment on above: Non- GFR Calc Serum or plasma calcium farheen urement (mass/volume)Ordered By: Dr. Jacksno on 01-28-2022 Calcium [Mass/Vol] 8.7 mg/dL 8.5-10.1 [facility] Serum or plasma creatinine m easurement (mass/volume)Ordered By: Dr. Jackson on 01-28-2022 Creatinine [Mass/Vol] 1.36 mg/dL 0.55-1.02 [facility] Comment on above: The validity of the calculated GFR & GFRAA in patients over 70 years has not been determined. Clinical correlation is essential. Serum or plasma urea nitroge n measurement (mass/volume)Ordered By: Dr. Jackson on 01-28-2022 Urea nitrogen [Mass/Vol] 41 mg/dL 7-18 [facility] Thin prep Papanicolaou smear with manual screeningOrdered By: Dr. Jackson on 01-28-2022 Thin prep Papanicolaou smear with manual screening 6 5-15 [facility] US ABDOMEN COMPLETEon 2021 [facility] Absolute lymphocyte counton 12-26-2021 Lymphocytes Auto (Unsp spec) [#/Vol] 1.35 10*3/uL 0.83-4.51 [facility] Work Phone: Basophil percentageon 2021 Basophils/100 WBC (Bld) 0.7 % 0-1 [facility] Work Phone: Bilirubin [Mass/Vol] 0.30 mg/dL 0.20-1.00 [facility] Work Phone: Comment on above: For patients on eltr ombopag therapy, use of Dimension [place] TBIL is not recommended. Chloride [Moles/Vol] 112 mmol/L 98-107 [facility] Work Phone: Eosinophils/100 WBC (Bld) 4.3 % 0-5 [facility] Work Phone: Glucose [Mass/Vol] 90 mg/dL 74-106 [facility] Work Phone: Neutrophils (Bld) [#/Vol] 3.9 10*3/uL 2.0-7.7 [facility] Work Phone: Neutrophils/100 WBC (Bld) 64.9 % 47-70 [facility] Work Phone: Potassium [Moles/Vol] 4.2 mmol/L 3.5-5.1 [facility] Work Phone: Protein [Mass/Vol] 6.8 g/dL 6.4-8.2 [facility] Work Phone: Sodium [Moles/Vol] 143 mmol/L 136-145 [facility] Work Phone: WBC (Bld) [#/Vol] 6.0 10*3/uL 4.4-11.0 [facility] Work Phone: Blood erythrocytes count (nu mber/volume)on 12-26-2021 RBC (Bld) [#/Vol] 3.41 10*6/uL 4.2-5.4 [facility] Work Phone: Blood hemoglobin measurement (mass/volume)on 12-26-2021 Hemoglobin (Bld) [Mass/Vol] 11.4 g/dL 12.0-15.0 [facility] Work Phone: Blood lymphocytes/100 leukoc yteson 12-26-2021 Lymphocytes/100 WBC (Bld) 22.4 % 19-41 [facility] Work Phone: Blood monocytes/100 leukocyt eson 12-26-2021 Monocytes/100 WBC (Bld) 7.5 % 0-10 [facility] Work Phone: Blood platelet mean volumeon 12-26-2021 Platelet mean volume (Bld) [Entitic vol] 12.5 fL 6.2-12.0 [facility] Work Phone: Determination of erythrocyte mean corpuscular volume (MCV)on 12-26-2021 MCV (RBC) [Entitic vol] 109.7 fL 81-99 [facility] Work Phone: Hematocrit Auto (Bld) [Volum e fraction]on 12-26-2021 Hematocrit (Bld) [Volume fraction] 37.4 % 37-47 [facility] Work Phone: Laboratory - Chemistry and C hemistry - challengeon 12-26-2021 ALP [Catalytic activity/Vol] 79 U/L 45-117 [facility] Work Phone: ALT [Catalytic activity/Vol] 20 U/L 13-56 [facility] Work Phone: CO2 [Moles/Vol] 26.0 mmol/L 21.0-32.0 [facility] Work Phone: Globulin (S) [Mass/Vol] 3.7 g/dL 2.2-4.2 [facility] Work Phone: Natriuretic peptide B (Bld) [Mass/Vol] 244.1 pg/mL 0-100 [facility] Work Phone: Urea nitrogen/Creatinine [Mass ratio] 29.7 mg/mg 10-20 [facility] Work Phone: Laboratory - Hematology and Cell countson 12-26-2021 Erythrocyte distribution width (RBC) [Entitic vol] 54.6 fL 35.1-43.9 [facility] Work Phone: Erythrocyte distribution width (RBC) [Ratio] 13.4 % 11.6-14.6 [facility] Work Phone: Immature granulocytes/100 WBC (Bld) 0.200 % 0.0-0.9 [facility] Work Phone: Comment on above: IG% - Immature Granu locytes (promyelocytes, myelocytes and metamyelocytes) > 1% indicates that a LEFT SHIFT is Present. MCH (RBC) [Entitic mass] 33.4 pg 27.0-32.0 [facility] Work Phone: Nucleated RBC/100 WBC (Bld) [Ratio] 0 % 0-5 [facility] Work Phone: MCHC Auto (RBC) [Mass/Vol]on 12-26-2021 MCHC (RBC) [Mass/Vol] 30.5 g/dL 32-36 [facility] Work Phone: No Panel Informationon 12-26 CA 125 Antigen 12.5 U/mL 0.0-38.1 [facility] Work Phone: Comment on above: [employer] [place] ectrochemiluminescence Immunoassay(ECLIA)Values obtained with different assay methods or kits cannotbe used interchangeably. Results cannot be interpreted asabsolute evidence of the presence or absence of malignantdisease.Performed at: [facility] [address] [id number] Director: Kevyn Flannery PhD, Phone: [phone] Estimated GFR (MDRD) Amer 45 mL/min >60 [facility] Work Phone: Comment on above: GFR Calc Estimated GFR (MDRD) Non-Af Amer 37 mL/min >60 [facility] Work Phone: Comment on above: Non- GFR Calc Platelets bldon 09-22-2022 Platelets (Bld) [#/Vol] 211 10*3/uL 150-450 [facility] Work Phone: Serum or plasma albumin farheen urement (mass/volume)on 12-26-2021 Albumin [Mass/Vol] 3.1 g/dL 3.2-5.0 [facility] Work Phone: Serum or plasma albumin/glob ulin mass ratioon 12-26-2021 Albumin/Globulin [Mass ratio] 0.8 {ratio} 0.9-2.4 [facility] Work Phone: Serum or plasma calcium farheen urement (mass/volume)on 12-26-2021 Calcium [Mass/Vol] 8.7 mg/dL 8.5-10.1 [facility] Work Phone: Serum or plasma creatinine m easurement (mass/volume)on 12-26-2021 Creatinine [Mass/Vol] 1.45 mg/dL 0.55-1.02 [facility] Work Phone: Comment on above: The validity of the calculated GFR & GFRAA in patients over 70 years has not been determined. Clinical correlation is essential. Serum or plasma urea nitroge n measurement (mass/volume)on 12-26-2021 Urea nitrogen [Mass/Vol] 43 mg/dL 7-18 [facility] Work Phone: Thin prep Papanicolaou smear with manual screeningon 12-26-2021 Thin prep Papanicolaou smear with manual screening 14 U/L 15-37 [facility] Work Phone: Thin prep Papanicolaou smear with manual screening 5 5-15 [facility] Work Phone: Basophil percentageon 2021 Chloride [Moles/Vol] 115 mmol/L 98-107 [facility] Work Phone: Glucose [Mass/Vol] 130 mg/dL 74-106 [facility] Work Phone: Comment on above: Fasting Glucose resu lt greater than or equal to 126 mg/dL suggests DIABETES MELLITUS per A.D.A. criteria. Potassium [Moles/Vol] 4.7 mmol/L 3.5-5.1 [facility] Work Phone: Comment on above: Moderate Hemolysis, Result may be falsely increased. Sodium [Moles/Vol] 144 mmol/L 136-145 [facility] Work Phone: Laboratory - Chemistry and C hemistry - challengeon 09-17-2021 CO2 [Moles/Vol] 22.0 mmol/L 21.0-32.0 [facility] Work Phone: Urea nitrogen/Creatinine [Mass ratio] 29.3 mg/mg 10-20 [facility] Work Phone: No Panel Informationon 09-17 Estimated GFR (MDRD) Amer 47 mL/min >60 [facility] Work Phone: Comment on above: GFR Calc Estimated GFR (MDRD) Non-Af Amer 39 mL/min >60 [facility] Work Phone: Comment on above: Non- GFR Calc Serum or plasma calcium farheen urement (mass/volume)on 09-17-2021 Calcium [Mass/Vol] 8.1 mg/dL 8.5-10.1 [facility] Work Phone: Serum or plasma creatinine m easurement (mass/volume)on 09-17-2021 Creatinine [Mass/Vol] 1.40 mg/dL 0.55-1.02 [facility] Work Phone: Comment on above: The validity of the calculated GFR & GFRAA in patients over 70 years has not been determined. Clinical correlation is essential. Serum or plasma urea nitroge n measurement (mass/volume)on 09-17-2021 Urea nitrogen [Mass/Vol] 41 mg/dL 7-18 [facility] Work Phone: Thin prep Papanicolaou smear with manual screeningon 09-17-2021 Thin prep Papanicolaou smear with manual screening 7 5-15 [facility] Work Phone: Basophil percentageon 2021 Chloride [Moles/Vol] 113 mmol/L 98-107 [facility] Work Phone: Glucose [Mass/Vol] 96 mg/dL 74-106 [facility] Work Phone: Potassium [Moles/Vol] 4.6 mmol/L 3.5-5.1 [facility] Work Phone: Sodium [Moles/Vol] 142 mmol/L 136-145 [facility] Work Phone: Laboratory - Chemistry and C hemistry - challengeon 08-29-2021 CO2 [Moles/Vol] 21.0 mmol/L 21.0-32.0 [facility] Work Phone: Urea nitrogen/Creatinine [Mass ratio] 36.8 mg/mg 10-20 [facility] Work Phone: No Panel Informationon 08-29 Estimated GFR (MDRD) Amer 37 mL/min >60 [facility] Work Phone: Comment on above: GFR Calc Estimated GFR (MDRD) Non-Af Amer 31 mL/min >60 [facility] Work Phone: Comment on above: Non- GFR Calc Serum or plasma calcium farheen urement (mass/volume)on 08-29-2021 Calcium [Mass/Vol] 8.6 mg/dL 8.5-10.1 [facility] Work Phone: Serum or plasma creatinine m easurement (mass/volume)on 08-29-2021 Creatinine [Mass/Vol] 1.71 mg/dL 0.55-1.02 [facility] Work Phone: Comment on above: The validity of the calculated GFR & GFRAA in patients over 70 years has not been determined. Clinical correlation is essential. Serum or plasma urea nitroge n measurement (mass/volume)on 08-29-2021 Urea nitrogen [Mass/Vol] 63 mg/dL 7-18 [facility] Work Phone: Thin prep Papanicolaou smear with manual screeningon 08-29-2021 Thin prep Papanicolaou smear with manual screening 8 5-15 [facility] Work Phone: Laboratory - Chemistry and C hemistry - challengeon 08-06-2021 Natriuretic peptide B (Bld) [Mass/Vol] 66.7 pg/mL 0-100 [facility] Work Phone: CT ABD/PEL WO IVCONon 2021 [facility] CBC W Auto Differential pane l (Bld)on 07-16-2021 Abs Immature Gran 0.03 k/uL <0.10 k/uL [facility] Basophils (Bld) [#/Vol] 0.07 10*3/uL <0.11 k/uL [facility] Basophils/100 WBC (Bld) 1.0 % [facility] Differential cell count method Nom (Bld) Auto [facility] Eosinophils (Bld) [#/Vol] 0.29 10*3/uL <0.46 k/uL [facility] Eosinophils/100 WBC (Bld) 4.2 % [facility] Erythrocyte distribution width (RBC) [Ratio] 12.8 % 11.5 - 15.0 % [facility] Hematocrit (Bld) [Volume fraction] 37.9 % 36.0 - 46.0 % [facility] Hemoglobin (Bld) [Mass/Vol] 11.8 g/dL 11.5 - 15.5 g/dL [facility] Immature Gran % 0.4 % [facility] Lymphocytes (Bld) [#/Vol] 2.20 10*3/uL 1.00 - 4.00 k/uL [facility] Lymphocytes/100 WBC (Bld) 32.0 % [facility] MCH (RBC) [Entitic mass] 34.0 pg 26.0 - 34.0 pg [facility] MCHC (RBC) [Mass/Vol] 31.1 g/dL 30.5 - 36.0 g/dL [facility] MCV (RBC) [Entitic vol] 109.2 fL High 80.0 - 100.0 fL [facility] Monocytes (Bld) [#/Vol] 0.54 10*3/uL <0.87 k/uL [facility] Monocytes/100 WBC (Bld) 7.9 % [facility] Neutrophils (Bld) [#/Vol] 3.74 10*3/uL 1.45 - 7.50 k/uL [facility] Neutrophils/100 WBC (Bld) 54.5 % [facility] Nucleated RBC (Bld) [#/Vol] 10*3/uL <0.01 k/uL [facility] Nucleated RBC/100 WBC (Bld) [Ratio] 0.0 /100 WBC [facility] Platelet mean volume (Bld) [Entitic vol] 12.6 fL 9.0 - 12.7 fL [facility] Platelets (Bld) [#/Vol] 232 10*3/uL 150 - 400 k/uL [facility] RBC (Bld) [#/Vol] 3.47 10*6/uL Low 3.90 - 5.20 m/uL [facility] WBC (Bld) [#/Vol] 6.87 10*3/uL 3.70 - 11.00 k/uL [facility] Comprehensive metabolic 2000 panelon 07-16-2021 Albumin [Mass/Vol] 3.9 g/dL 3.9 - 4.9 g/dL [facility] ALP [Catalytic activity/Vol] 64 U/L 34 - 123 U/L [facility] ALT [Catalytic activity/Vol] 13 U/L 7 - 38 U/L [facility] Anion gap [Moles/Vol] 11 mmol/L 9 - 18 mmol/L [facility] AST [Catalytic activity/Vol] 22 U/L 13 - 35 U/L [facility] Bilirubin [Mass/Vol] 0.3 mg/dL 0.2 - 1 .3 mg/dL [facility] Calcium [Mass/Vol] 8.9 mg/dL 8.5 - 10. 2 mg/dL [facility] Chloride [Moles/Vol] 110 mmol/L High 97 - 10 5 mmol/L [facility] CO2 [Moles/Vol] 19 mmol/L Low 22 - 30 mmol/L [facility] Creatinine [Mass/Vol] 1.72 mg/dL High 0.58 - 0.96 mg/dL [facility] Estimated Glomerular Filtration Rate 30 mL/min/1.73m Low >=60 mL/min/1.7 3m [facility] Glucose [Mass/Vol] 77 mg/dL 74 - 99 mg/dL [facility] Potassium [Moles/Vol] 4.4 mmol/L 3.7 - 5.1 mmol/L [facility] Protein [Mass/Vol] 6.8 g/dL 6.3 - 8.0 g/dL [facility] Sodium [Moles/Vol] 140 mmol/L 136 - 144 mmol/L [facility] Urea nitrogen [Mass/Vol] 63 mg/dL High 7 - 21 mg/dL [facility] TSH BLDon 07-16-2021 TSH Qn 3.480 m[IU]/L 0.270 - 4.200 mIU/L [facility] XR RIBS/CHEST 3V AP RIB/OBLS /CXR LEFTon 07-16-2021 [facility] XR Ribs - left Views and Birdie st PAon 07-16-2021 IMPRESSION: Negative ribs. Loftsman/Woman: CHEIKH Transcribe Date/Time: Jul 16 2021 2:18P [...] USE_DIVISIO N OF RADIOLOGY Provider, Caitlin Valenzuela [facility] - 07/16/2021 * * *Final Report* * [...] nondisplaced rib fracture. IMPRESSION IMPRESSION: Negative ribs. Loftsman/Woman: CHEIKH Transcribe Date/Time: Jul 16 2021 2:18P Dictated by : ADELA MILNER MD This examination was interpreted and the report reviewed and electronically signed by: ADELA MILNER MD on Jul 16 2021 2:25PM EST [facility] Radiology Study observation (narrative) [facility] XR Ribs - left Views and Birdie st PAOrdered By: Ccf Provider on 07-16-2021 [facility] Culture, urine Bacteria identified Cx Nom (U) Escherichia coli [facility] Work Phone: Bacteria identified Cx Nom (U) Positive [facility] Work Phone: Vital Signs Date Time Vital Sign Value Performing Clinician Jordani waldo 10-26-2024 11:34-0400 Body temperature 97.9 [degF] Miryam Orozco [employer] Work Phone: [facility] 10-26-2024 11:34-0400 Diastolic blood pressure 61 mm[Hg] Miryam Orozco [employer] Work Phone: [facility] 10-26-2024 11:34-0400 Heart rate 87 /min Miryam Orozco [employer] Work Phone: [facility] 10-26-2024 11:34-0400 Respiratory rate 16 /min Miryam Tannhof [employer] Work Phone: 0(129)922-951071 [place] [address] 10-26-2024 11:34-0400 SaO2% (BldA) [Mass fraction] 98 % Miryam Kimballhof [employer] Work Phone: 0(990)283-649854 [place] [address] 10-26-2024 11:34-0400 Systolic blood pressure 110 mm[Hg] Miryam Serraf [employer] Work Phone: 2(510)873-015554 [place] [address] 10-26-2024 10:03-0400 Body mass index (BMI) [Ratio] 49.6 kg/m2 Miryam Serraf [employer] Work Phone: 8(250)327-912254 [place] [address] 10-26-2024 10:03-0400 Body weight 123 kg Miryam Serraf [employer] Work Phone: 6(062)642-865654 [place] [address] 10-26-2024 10:01-0400 Body height 157.48 cm Miryam Serraf [employer] Work Phone: 1(016)722-474054 [place] [address] 10-25-2024 14:13-0400 Body height 157.48 cm Miryam Serraf [employer] Work Phone: 4(512)268-674754 [place] [address] 10-25-2024 14:13-0400 Body mass index (BMI) [Ratio] 46.7 kg/m2 Miryam Serraf [employer] Work Phone: 5(526)236-353054 [place] [address] 10-25-2024 14:13-0400 Body weight 116.11 kg Miryam Serraf [employer] Work Phone: 4(385)009-516254 [place] [address] 10-25-2024 14:13-0400 Diastolic blood pressure 62 mm[Hg] Miryam Serraf [employer] Work Phone: 0(118)357-023454 [place] [address] 10-25-2024 14:13-0400 Heart rate 119 /min Miryam Serraf [employer] Work Phone: 8(011)190-945954 [place] [address] 10-25-2024 14:13-0400 Respiratory rate 18 /min Miryam Serraf [employer] Work Phone: 8(363)797-550854 [place] [address] 10-25-2024 14:13-0400 Systolic blood pressure 111 mm[Hg] Miryampoonam Kimballhof [employer] Work Phone: [facility] 10-24-2024 13:52-0400 Body mass index (BMI) [Ratio] 48.65 kg/m2 Lizy Capone MD Work Phone: [facility] 10-24-2024 13:52-0400 Body weight 120.66 kg Lizy Capone MD Work Phone: [facility] 10-24-2024 13:52-0400 Diastolic blood pressure 63 mm[Hg] Lizy Capone MD Work Phone: [facility] 10-24-2024 13:52-0400 Heart rate 117 /min Lizy Capone MD Work Phone: [facility] 10-24-2024 13:52-0400 Respiratory rate 18 /min Lizy aCpone MD Work Phone: [facility] 10-24-2024 13:52-0400 SaO2% (BldA) [Mass fraction] 96 % Lizy Capone MD Work Phone: [facility] 10-24-2024 13:52-0400 Systolic blood pressure 93 mm[Hg] Lizy Capone MD Work Phone: [facility] 10-24-2024 10:01-0400 Body temperature 98.5 [degF] Miryampoonam Kimballhof [employer] Work Phone: [facility] 10-24-2024 10:01-0400 Diastolic blood pressure 74 mm[Hg] Miryampoonam Kimballhof [employer] Work Phone: [facility] 10-24-2024 10:01-0400 Heart rate 104 /min Miryampoonam Kimballhof [employer] Work Phone: [facility] 10-24-2024 10:01-0400 Respiratory rate 18 /min Miryampoonam Kimballhof [employer] Work Phone: [facility] 10-24-2024 10:01-0400 Systolic blood pressure 123 mm[Hg] Miryampoonam Kimballhof [employer] Work Phone: 8(854)429-587071 [place] [address] 10-20-2024 11:32-0400 Body temperature 98.4 [degF] Miryam Tannhof [employer] Work Phone: 8(869)694-302754 [place] [address] 10-20-2024 11:32-0400 Diastolic blood pressure 74 mm[Hg] Miryam Tannhof [employer] Work Phone: 0(803)538-466954 [place] [address] 10-20-2024 11:32-0400 Heart rate 96 /min Miryam Tannhof [employer] Work Phone: 9(915)283-190454 [place] [address] 10-20-2024 11:32-0400 Respiratory rate 18 /min Miryam Tannhof [employer] Work Phone: 8(663)752-989554 [place] [address] 10-20-2024 11:32-0400 SaO2% (BldA) [Mass fraction] 96 % Miryam Tannhof [employer] Work Phone: 3(444)863-260854 [place] [address] 10-20-2024 11:32-0400 Systolic blood pressure 125 mm[Hg] Miryam Tannhof [employer] Work Phone: 7(566)989-912454 [place] [address] 10-18-2024 11:11-0400 Body temperature 97.5 [degF] Miryam Tannhof [employer] Work Phone: 0(174)493-229754 [place] [address] 10-18-2024 11:11-0400 Diastolic blood pressure 71 mm[Hg] Miryam Tannhof [employer] Work Phone: 1(022)902-453054 [place] [address] 10-18-2024 11:11-0400 Heart rate 81 /min Miryam Tannhof [employer] Work Phone: 7(404)357-646354 [place] [address] 10-18-2024 11:11-0400 Respiratory rate 17 /min Miryam Tannhof [employer] Work Phone: 3(524)684-084454 [place] [address] 10-18-2024 11:11-0400 SaO2% (BldA) [Mass fraction] 98 % Miryam Tannhof [employer] Work Phone: 7(010)989-458854 [place] [address] 10-18-2024 11:11-0400 Systolic blood pressure 127 mm[Hg] Miryam Tannhof [employer] Work Phone: [facility] 10-18-2024 06:00-0400 Body mass index (BMI) [Ratio] 49.1 kg/m2 Miryam Jigarhof [employer] Work Phone: 6(004)511-757954 [place] [address] 10-18-2024 06:00-0400 Body weight 120.97 kg Miryampoonam Kimballhof [employer] Work Phone: 5(388)011-747054 [place] [address] 10-16-2024 20:49-0400 Diastolic blood pressure 70 mm[Hg] Miryam Tannhof [employer] Work Phone: 6(820)436-307954 [place] [address] 10-16-2024 20:49-0400 Heart rate 80 /min Miryam Tannhof [employer] Work Phone: 6(269)173-629254 [place] [address] 10-16-2024 20:49-0400 Systolic blood pressure 136 mm[Hg] Miryam Tannhof [employer] Work Phone: 2(223)327-634754 [place] [address] 10-16-2024 10:34-0400 Body temperature 97.6 [degF] Miryam Tannhof [employer] Work Phone: 0(456)020-907854 [place] [address] 10-16-2024 10:34-0400 SaO2% (BldA) [Mass fraction] 96 % Miryam Tannhof [employer] Work Phone: 8(318)665-151654 [place] [address] 10-15-2024 09:46-0400 Respiratory rate 18 /min Miryam Jigarhof [employer] Work Phone: 7(916)209-674154 [place] [address] 10-14-2024 16:40-0400 Body temperature 97.6 [degF] Miryam Tannhof [employer] Work Phone: 5(356)181-974754 [place] [address] 10-14-2024 16:40-0400 Diastolic blood pressure 87 mm[Hg] Miryam Tannhof [employer] Work Phone: 0(607)897-006854 [place] [address] 10-14-2024 16:40-0400 Heart rate 94 /min Miryam Tannhof [employer] Work Phone: 5(821)905-549554 [place] [address] 10-14-2024 16:40-0400 Respiratory rate 18 /min Miryam Tannhof [employer] Work Phone: 2(798)131-608454 [place] [address] 10-14-2024 16:40-0400 SaO2% (BldA) [Mass fraction] 96 % Miryam Serraf [employer] Work Phone: 3(189)170-384554 [place] [address] 10-14-2024 16:40-0400 Systolic blood pressure 125 mm[Hg] Miryam Serraf [employer] Work Phone: 3(705)485-776454 [place] [address] 10-14-2024 16:21-0400 Inhaled oxygen flow rate 4 L/min Miryam Orozco [employer] Work Phone: 6(915)669-915654 [place] [address] 10-14-2024 13:52-0400 Body height 157.48 cm Miryam Orozco [employer] Work Phone: 4(795)188-561454 [place] [address] 10-14-2024 13:52-0400 Body mass index (BMI) [Ratio] 47.5 kg/m2 Miryam Serraf [employer] Work Phone: 3(537)638-336154 [place] [address] 10-14-2024 13:52-0400 Body weight 117.93 kg Miryam Serraf [employer] Work Phone: 2(183)111-354554 [place] [address] 10-14-2024 07:54-0400 Body mass index (BMI) [Ratio] 49.2 kg/m2 Miryam Serraf [employer] Work Phone: 4(984)514-375954 [place] [address] 10-14-2024 07:54-0400 Body weight 122.19 kg Miryam Orozco [employer] Work Phone: 4(020)691-016654 [place] [address] 10-12-2024 16:10-0400 Body temperature 97.8 [degF] Miryam Serraf [employer] Work Phone: 8(336)469-810954 [place] [address] 10-12-2024 16:10-0400 Diastolic blood pressure 67 mm[Hg] Miryam Serraf [employer] Work Phone: 8(760)262-597054 [place] [address] 10-12-2024 16:10-0400 Heart rate 93 /min Miryam Serraf [employer] Work Phone: 3(303)603-761754 [place] [address] 10-12-2024 16:10-0400 Respiratory rate 13 /min Miryam Orozco [employer] Work Phone: 1(729)276-121054 [place] [address] 10-12-2024 16:10-0400 SaO2% (BldA) [Mass fraction] 94 % Miryam Serraf [employer] Work Phone: 0(174)172-069054 [place] [address] 10-12-2024 16:10-0400 Systolic blood pressure 122 mm[Hg] Miryam Serraf [employer] Work Phone: 2(025)034-901954 [place] [address] 10-12-2024 13:35-0400 Body height 154.94 cm Miryam Serraf [employer] Work Phone: 2(797)381-664354 [place] [address] 10-12-2024 13:35-0400 Body mass index (BMI) [Ratio] 56 kg/m2 Miryam Serraf [employer] Work Phone: 8(343)194-771854 [place] [address] 10-12-2024 13:35-0400 Body weight 134.4 kg Miryam Serraf [employer] Work Phone: 5(834)581-691654 [place] [address] 10-12-2024 11:36-0400 Body weight 122.19 kg Miryam Serraf [employer] Work Phone: 6(961)120-085954 [place] [address] 10-12-2024 08:40-0400 Body temperature 98 [degF] Miryam Serraf [employer] Work Phone: 6(205)036-031654 [place] [address] 10-12-2024 08:40-0400 Diastolic blood pressure 65 mm[Hg] Miryam Serraf [employer] Work Phone: 1(346)474-755854 [place] [address] 10-12-2024 08:40-0400 Heart rate 111 /min Miryam Serraf [employer] Work Phone: 3(958)724-517954 [place] [address] 10-12-2024 08:40-0400 Respiratory rate 18 /min Miryam Serraf [employer] Work Phone: 2(265)520-004154 [place] [address] 10-12-2024 08:40-0400 SaO2% (BldA) [Mass fraction] 96 % Miryam Orozco [employer] Work Phone: 1(358)526-445954 [place] [address] 10-12-2024 08:40-0400 Systolic blood pressure 109 mm[Hg] Miryampoonam Kimballhof [employer] Work Phone: 1(769)999-873671 [place] [address] 10-11-2024 15:17-0400 Body mass index (BMI) [Ratio] 49.6 kg/m2 Miryam Tannhof [employer] Work Phone: 9(877)584-957271 [place] [address] 10-10-2024 14:26-0400 Body temperature 97 [degF] Miryam Tannhof [employer] Work Phone: 9(311)610-109171 [place] [address] 10-10-2024 14:26-0400 Diastolic blood pressure 67 mm[Hg] Miryam Tannhof [employer] Work Phone: 1(561)946-139754 [place] [address] 10-10-2024 14:26-0400 Heart rate 89 /min Miryam Tannhof [employer] Work Phone: 0(539)940-062071 [place] [address] 10-10-2024 14:26-0400 Respiratory rate 14 /min Miryam Jigarhof [employer] Work Phone: 9(989)054-034671 [place] [address] 10-10-2024 14:26-0400 Systolic blood pressure 111 mm[Hg] Miryampoonam Kimballhof [employer] Work Phone: 9(838)318-431871 [place] [address] 10-04-2024 14:03-0400 Body temperature 97 [degF] Miryam Tannhof [employer] Work Phone: 8(405)513-285571 [place] [address] 10-04-2024 14:03-0400 Diastolic blood pressure 66 mm[Hg] Miryam Tannhof [employer] Work Phone: 0(057)441-295771 [place] [address] 10-04-2024 14:03-0400 Heart rate 89 /min Miryam Tannhof [employer] Work Phone: 0(194)221-799854 [place] [address] 10-04-2024 14:03-0400 Respiratory rate 16 /min Miryam Tannhof [employer] Work Phone: 5(098)990-306571 [place] [address] 10-04-2024 14:03-0400 SaO2% (BldA) [Mass fraction] 97 % Miryam Tannhof [employer] Work Phone: 5(581)182-895071 [place] [address] 10-04-2024 14:03-0400 Systolic blood pressure 97 mm[Hg] Miryam Serraf [employer] Work Phone: 7(470)846-554754 [place] [address] 10-04-2024 09:00-0400 Inhaled oxygen flow rate 0 L/min Miryam Serraf [employer] Work Phone: 2(718)291-144454 [place] [address] 10-04-2024 04:44-0400 Body mass index (BMI) [Ratio] 48.6 kg/m2 Miryam Serraf [employer] Work Phone: 2(593)030-898354 [place] [address] 10-04-2024 04:44-0400 Body weight 120.8 kg Miryam Serraf [employer] Work Phone: 6(792)631-120454 [place] [address] 10-03-2024 23:25-0400 Body temperature 97.5 [degF] Miryam Serraf [employer] Work Phone: 2(051)241-323754 [place] [address] 10-03-2024 23:25-0400 Diastolic blood pressure 57 mm[Hg] Miryam Serraf [employer] Work Phone: 1(440)226-080554 [place] [address] 10-03-2024 23:25-0400 Heart rate 85 /min Miryam Serraf [employer] Work Phone: 1(923)704-464954 [place] [address] 10-03-2024 23:25-0400 Respiratory rate 15 /min Miryam Serraf [employer] Work Phone: 9(385)584-028854 [place] [address] 10-03-2024 23:25-0400 SaO2% (BldA) [Mass fraction] 96 % Miryam Serraf [employer] Work Phone: 0(046)801-118254 [place] [address] 10-03-2024 23:25-0400 Systolic blood pressure 111 mm[Hg] Miryam Serraf [employer] Work Phone: 2(438)510-390454 [place] [address] 10-03-2024 12:48-0400 Body height 157.48 cm Miryam Serraf [employer] Work Phone: 3(116)841-656354 [place] [address] 10-03-2024 12:48-0400 Body weight 118.3 kg Miryam Serraf [employer] Work Phone: 8(435)666-398954 [place] [address] 10-03-2024 03:48-0400 Body mass index (BMI) [Ratio] 47.7 kg/m2 Miryam Orozco [employer] Work Phone: 0(020)746-097454 [place] [address] 10-01-2024 07:37-0400 Inhaled oxygen flow rate 2 L/min Miryam Serraf [employer] Work Phone: 7(910)792-628654 [place] [address] 09-28-2024 21:36-0400 Body temperature 97.9 [degF] Miryam Serraf [employer] Work Phone: 3(486)622-042954 [place] [address] 09-28-2024 21:36-0400 Diastolic blood pressure 73 mm[Hg] Miryam Serraf [employer] Work Phone: 4(326)175-778354 [place] [address] 09-28-2024 21:36-0400 Heart rate 95 /min Miryam Serraf [employer] Work Phone: 3(569)821-698654 [place] [address] 09-28-2024 21:36-0400 Respiratory rate 22 /min Miryam Serraf [employer] Work Phone: 3(732)887-492954 [place] [address] 09-28-2024 21:36-0400 SaO2% (BldA) [Mass fraction] 98 % Miryam Serraf [employer] Work Phone: 1(696)973-340954 [place] [address] 09-28-2024 21:36-0400 Systolic blood pressure 141 mm[Hg] Miryam Serraf [employer] Work Phone: 5(369)663-910954 [place] [address] 09-28-2024 21:32-0400 Body mass index (BMI) [Ratio] 46.1 kg/m2 Miryam Serraf [employer] Work Phone: 4(755)264-868854 [place] [address] 09-28-2024 21:32-0400 Body weight 114.4 kg Miryam Serraf [employer] Work Phone: 6(998)016-609054 [place] [address] 09-28-2024 13:11-0400 Body height 157.48 cm Miryam Serraf [employer] Work Phone: 0(072)920-607154 [place] [address] 09-22-2024 14:18-0400 Body mass index (BMI) [Ratio] 43.63 kg/m2 Lizy Capone MD Work Phone: [facility] 09-22-2024 14:18-0400 Body weight 108.2 kg Lizy Capone MD Work Phone: [facility] 09-22-2024 14:18-0400 Diastolic blood pressure 72 mm[Hg] Lizy Capone MD Work Phone: [facility] 09-22-2024 14:18-0400 Heart rate 120 /min Lizy Capone MD Work Phone: [facility] 09-22-2024 14:18-0400 Respiratory rate 18 /min Lizy Capone MD Work Phone: [facility] 09-22-2024 14:18-0400 SaO2% (BldA) [Mass fraction] 98 % Lizy Capone MD Work Phone: [facility] 09-22-2024 14:18-0400 Systolic blood pressure 122 mm[Hg] Lizy Capone MD Work Phone: [facility] 09-19-2024 14:22-0400 Body temperature 98.1 [degF] Miryam Tannhof [employer] Work Phone: [facility] 09-19-2024 14:22-0400 Diastolic blood pressure 78 mm[Hg] Miryam Tannhof [employer] Work Phone: [facility] 09-19-2024 14:22-0400 Heart rate 72 /min Miryam Tannhof [employer] Work Phone: [facility] 09-19-2024 14:22-0400 Respiratory rate 18 /min Miryam Tannhof [employer] Work Phone: [facility] 09-19-2024 14:22-0400 Systolic blood pressure 138 mm[Hg] Miryam Tannhof [employer] Work Phone: [facility] 09-15-2024 13:29-0400 Body mass index (BMI) [Ratio] 42.62 kg/m2 Michael Carter APRN.CNP Work Phone: [facility] 09-15-2024 13:29-0400 Body weight 105.69 kg Michael Carter EMPLOYMENT PROGRAM REPRESENTATIVE.[employer] Work Phone: [facility] 09-15-2024 13:29-0400 Diastolic blood pressure 67 mm[Hg] Michael Carter EMPLOYMENT PROGRAM REPRESENTATIVE.[employer] Work Phone: [facility] 09-15-2024 13:29-0400 Heart rate 72 /min Michael Carter EMPLOYMENT PROGRAM REPRESENTATIVE.[employer] Work Phone: [facility] 09-15-2024 13:29-0400 SaO2% (BldA) [Mass fraction] 95 % Michael Carter EMPLOYMENT PROGRAM REPRESENTATIVE.[employer] Work Phone: [facility] 09-15-2024 13:29-0400 Systolic blood pressure 112 mm[Hg] Michael Carter EMPLOYMENT PROGRAM REPRESENTATIVE.[employer] Work Phone: [facility] 09-06-2024 10:30-0400 Body temperature 99.4 [degF] Miryampoonam Kimballhof [employer] Work Phone: [facility] 09-06-2024 10:30-0400 Diastolic blood pressure 78 mm[Hg] Miryampoonam Kimballhof [employer] Work Phone: 5([phone] [place] [address] 09-06-2024 10:30-0400 Heart rate 64 /min Miryam Jigarhof [employer] Work Phone: 4(578)[phone] [place] [address] 09-06-2024 10:30-0400 Respiratory rate 16 /min Miryam Jigarhof [employer] Work Phone: [facility] 09-06-2024 10:30-0400 SaO2% (BldA) [Mass fraction] 100 % Miryam Jigarhof [employer] Work Phone: [facility] 09-06-2024 10:30-0400 Systolic blood pressure 135 mm[Hg] Miryam Tannhof [employer] Work Phone: [facility] 09-06-2024 08:12-0400 Body height 149.86 cm Miryampoonam Kimballhof [employer] Work Phone: 2(359)[phone] [place] [address] 09-06-2024 08:12-0400 Body mass index (BMI) [Ratio] 47 kg/m2 Miryam Serraf [employer] Work Phone: 1(747)[phone] [place] [address] 09-06-2024 08:12-0400 Body weight 105.68 kg Miryam Serraf [employer] Work Phone: 1(520)[phone] [place] [address] 09-05-2024 08:37-0400 Body height 149.86 cm Miryam Serraf [employer] Work Phone: 1(608)[phone] [place] [address] 09-05-2024 08:37-0400 Body mass index (BMI) [Ratio] 47 kg/m2 Miryam Serraf [employer] Work Phone: 7(287)139-981154 [place] [address] 09-05-2024 08:37-0400 Body temperature 98 [degF] Miryam Serraf [employer] Work Phone: 2(071)237-788954 [place] [address] 09-05-2024 08:37-0400 Body weight 105.68 kg Miryam Serraf [employer] Work Phone: 0(891)567-772854 [place] [address] 09-05-2024 08:37-0400 Diastolic blood pressure 72 mm[Hg] Miryam Kimballhof [employer] Work Phone: 6(705)365-703854 [place] [address] 09-05-2024 08:37-0400 Heart rate 78 /min Miryam Serraf [employer] Work Phone: 5(936)[phone] [place] [address] 09-05-2024 08:37-0400 Respiratory rate 16 /min Miryam Serraf [employer] Work Phone: 2(793)[phone] [place] [address] 09-05-2024 08:37-0400 SaO2% (BldA) [Mass fraction] 96 % Miryam Kimballhof [employer] Work Phone: 7(293)[phone] [place] [address] 09-05-2024 08:37-0400 Systolic blood pressure 128 mm[Hg] Miryam Kimballhof [employer] Work Phone: 4(609)[phone] [place] [address] 09-04-2024 14:37-0400 Body mass index (BMI) [Ratio] 42.62 kg/m2 Deacon Moomaw EMPLOYMENT PROGRAM REPRESENTATIVE.[employer] Work Phone: [facility] 09-04-2024 14:37-0400 Body temperature 98.49 [degF] Deacon Moomaw EMPLOYMENT PROGRAM REPRESENTATIVE.[employer]GER [employer]ER Work Phone: [facility] 09-04-2024 14:37-0400 Body weight 105.69 kg Deacon Moomaw EMPLOYMENT PROGRAM REPRESENTATIVE.[employer]GER MA[employer]ER Work Phone: [facility] 09-04-2024 14:37-0400 Diastolic blood pressure 76 mm[Hg] Deacon Moomaw EMPLOYMENT PROGRAM REPRESENTATIVE.[employer]AGGER MA[employer]ER Work Phone: [facility] 09-04-2024 14:37-0400 Heart rate 74 /min Deacon Moomaw EMPLOYMENT PROGRAM REPRESENTATIVE.[employer]AGGER MA[employer]ER Work Phone: [facility] 09-04-2024 14:37-0400 Respiratory rate 18 /min Deacon Moomaw EMPLOYMENT PROGRAM REPRESENTATIVE.[employer]AGGER MA[employer]ER Work Phone: [facility] 09-04-2024 14:37-0400 SaO2% (BldA) [Mass fraction] 95 % Deacon Moomaw EMPLOYMENT PROGRAM REPRESENTATIVE.SAGGER MAKER Work Phone: [facility] 09-04-2024 14:37-0400 Systolic blood pressure 128 mm[Hg] Deacon Moomaw EMPLOYMENT PROGRAM REPRESENTATIVE.[employer]GER MA[employer]ER Work Phone: [facility] 09-01-2024 14:39-0400 Body temperature 96.8 [degF] Miryam Tannhof [employer] Work Phone: [facility] 09-01-2024 14:39-0400 Diastolic blood pressure 68 mm[Hg] Miryam Tannhof [employer] Work Phone: [facility] 09-01-2024 14:39-0400 Heart rate 75 /min Miryam Tannhof [employer] Work Phone: [facility] 09-01-2024 14:39-0400 Respiratory rate 18 /min Miryam Tannhof [employer] Work Phone: [facility] 09-01-2024 14:39-0400 Systolic blood pressure 147 mm[Hg] Miryam Tannhof [employer] Work Phone: [facility] 08-22-2024 13:20-0400 Body mass index (BMI) [Ratio] 42.62 kg/m2 Lizy Capone MD Work Phone: [facility] 08-22-2024 13:20-0400 Body weight 105.69 kg Lizy Capone MD Work Phone: [facility] 08-22-2024 13:20-0400 Diastolic blood pressure 72 mm[Hg] Lizy Capone MD Work Phone: [facility] 08-22-2024 13:20-0400 Heart rate 61 /min Lizy Capone MD Work Phone: [facility] 08-22-2024 13:20-0400 Respiratory rate 18 /min Lizy Capone MD Work Phone: [facility] 08-22-2024 13:20-0400 SaO2% (BldA) [Mass fraction] 95 % Lizy Capone MD Work Phone: [facility] 08-22-2024 13:20-0400 Systolic blood pressure 124 mm[Hg] Lizy Capone MD Work Phone: [facility] 07-29-2024 15:43-0400 Body temperature 98.1 [degF] Miryam Tannhof [employer] Work Phone: [facility] 07-29-2024 15:43-0400 Diastolic blood pressure 76 mm[Hg] Miryam Kimballhof [employer] Work Phone: [facility] 07-29-2024 15:43-0400 Heart rate 70 /min Miryam Tannhof [employer] Work Phone: [facility] 07-29-2024 15:43-0400 Respiratory rate 18 /min Miryam Tannhof [employer] Work Phone: [facility] 07-29-2024 15:43-0400 SaO2% (BldA) [Mass fraction] 99 % Miryam Jigarhof [employer] Work Phone: 7(956)[phone] [place] [address] 07-29-2024 15:43-0400 Systolic blood pressure 177 mm[Hg] Miryam Serraf [employer] Work Phone: 2(761)[phone] [place] [address] 07-29-2024 14:53-0400 Body height 154.94 cm Miryampoonam Kimballhof [employer] Work Phone: 9(393)[phone] [place] [address] 07-29-2024 14:53-0400 Body mass index (BMI) [Ratio] 37.8 kg/m2 Miryampoonam Kimballhof [employer] Work Phone: 7(526)027-488454 [place] [address] 07-29-2024 14:53-0400 Body weight 90.8 kg Miryampoonam Kimballhof [employer] Work Phone: 7(418)[phone] [place] [address] 06-10-2024 17:29-0500 Body temperature 97.9 [degF] Miryampoonam Kimballhof [employer] Work Phone: 8(012)571-872354 [place] [address] 06-10-2024 17:29-0500 Diastolic blood pressure 60 mm[Hg] Miryampoonam Kimballhof [employer] Work Phone: 5(603)187-772054 [place] [address] 06-10-2024 17:29-0500 Heart rate 74 /min Miryampoonam Kimballhof [employer] Work Phone: 5(494)046-920754 [place] [address] 06-10-2024 17:29-0500 Respiratory rate 16 /min Miryampoonam Kimballhof [employer] Work Phone: 5(136)[phone] [place] [address] 06-10-2024 17:29-0500 SaO2% (BldA) [Mass fraction] 99 % Miryampoonam Kimballhof [employer] Work Phone: 1(670)487-460954 [place] [address] 06-10-2024 17:29-0500 Systolic blood pressure 122 mm[Hg] Miryampoonam Kimballhof [employer] Work Phone: 8(482)[phone] [place] [address] 06-08-2024 07:41-0500 Body mass index (BMI) [Ratio] 44.2 kg/m2 Miryampoonam Kimballhof [employer] Work Phone: 9(658)[phone] [place] [address] 06-08-2024 07:41-0500 Body weight 99.4 kg Miryampoonam Kimballhof [employer] Work Phone: [facility] 06-01-2024 15:07-0500 Body height 149.86 cm Miryam Orozco [employer] Work Phone: [facility] 05-18-2024 15:18-0500 Body temperature 97.9 [degF] Kindra Gannon MD Work Phone: [facility] 05-18-2024 15:18-0500 Diastolic blood pressure 58 mm[Hg] Kindra Gannon MD Work Phone: [facility] 05-18-2024 15:18-0500 Heart rate 68 /min Kindra Gannon MD Work Phone: [facility] 05-18-2024 15:18-0500 Respiratory rate 16 /min Kindra Gannon MD Work Phone: [facility] 05-18-2024 15:18-0500 SaO2% (BldA) [Mass fraction] 95 % Kindra Gannon MD Work Phone: [facility] 05-18-2024 15:18-0500 Systolic blood pressure 111 mm[Hg] Kindra Gannon MD Work Phone: [facility] 05-18-2024 06:00-0500 Body mass index (BMI) [Ratio] 39.13 kg/m2 Kindra Gannon MD Work Phone: [facility] 05-18-2024 06:00-0500 Body weight 106.65 kg Kindra Gannon MD Work Phone: [facility] 05-11-2024 15:06-0500 Body height 165.1 cm Kindra Gannon MD Work Phone: [facility] 05-04-2024 19:00-0500 Body temperature 99.8 [degF] Miryam Orozco [employer] Work Phone: [facility] 05-04-2024 19:00-0500 Diastolic blood pressure 57 mm[Hg] Miryam Serraf [employer] Work Phone: [facility] 05-04-2024 19:00-0500 Heart rate 68 /min Miryam Serraf [employer] Work Phone: [facility] 05-04-2024 19:00-0500 Inhaled oxygen concentration 25 % Miryam Serraf [employer] Work Phone: [facility] 05-04-2024 19:00-0500 Respiratory rate 14 /min Miryam Serraf [employer] Work Phone: [facility] 05-04-2024 19:00-0500 SaO2% (BldA) [Mass fraction] 98 % Miryam Serraf [employer] Work Phone: [facility] 05-04-2024 19:00-0500 Systolic blood pressure 107 mm[Hg] Miryam Serraf [employer] Work Phone: [facility] 05-04-2024 14:50-0500 Body mass index (BMI) [Ratio] 49.8 kg/m2 Miryam Serraf [employer] Work Phone: [facility] 05-04-2024 14:50-0500 Body weight 115 kg Miryampoonam Serraf [employer] Work Phone: [facility] 01-28-2024 08:55-0400 Body mass index (BMI) [Ratio] 41.88 kg/m2 Miryam Kimballhof EMPLOYMENT PROGRAM REPRESENTATIVE.[employer]GER [employer]ER Work Phone: [facility] 01-28-2024 08:55-0400 Body weight 103.87 kg Miryam Kimballhof EMPLOYMENT PROGRAM REPRESENTATIVE.SAGGER MAKER Work Phone: [facility] 01-28-2024 08:55-0400 Diastolic blood pressure 60 mm[Hg] Miryam Kimballhof EMPLOYMENT PROGRAM REPRESENTATIVE.SAGGER MAKER Work Phone: [facility] 01-28-2024 08:55-0400 Heart rate 77 /min Miryam Kimballhof EMPLOYMENT PROGRAM REPRESENTATIVE.SAGGER MAKER Work Phone: [facility] 01-28-2024 08:55-0400 Respiratory rate 16 /min Miryam Kimballmirzaf EMPLOYMENT PROGRAM REPRESENTATIVE.SAGGER MAKER Work Phone: [facility] 01-28-2024 08:55-0400 SaO2% (BldA) [Mass fraction] 96 % Miryam Kimballhof EMPLOYMENT PROGRAM REPRESENTATIVE.SAGGER MAKER Work Phone: [facility] 01-28-2024 08:55-0400 Systolic blood pressure 122 mm[Hg] Miryam Jigarhof EMPLOYMENT PROGRAM REPRESENTATIVE.SAGGER MAKER Work Phone: [facility] 12-17-2023 08:53-0400 Heart rate 71 /min Roque Delgado MD Work Phone: [facility] 12-17-2023 08:53-0400 Respiratory rate 14 /min Roque Delgado MD Work Phone: [facility] 12-17-2023 08:53-0400 SaO2% (BldA) [Mass fraction] 99 % Roque Delgado MD Work Phone: [facility] 12-04-2023 08:03-0400 Body mass index (BMI) [Ratio] 40.79 kg/m2 Starr Marques MD Work Phone: [facility] 12-04-2023 08:03-0400 Body weight 101.15 kg Starr Marques MD Work Phone: [facility] 12-04-2023 08:03-0400 Diastolic blood pressure 60 mm[Hg] Starr Marques MD Work Phone: [facility] 12-04-2023 08:03-0400 Systolic blood pressure 108 mm[Hg] Starr Marques MD Work Phone: [facility] 11-16-2023 10:58-0400 Diastolic blood pressure 57 mm[Hg] Roque Delgado MD Work Phone: [facility] 11-16-2023 10:58-0400 Heart rate 71 /min Roque Delgado MD Work Phone: [facility] 11-16-2023 10:58-0400 Respiratory rate 17 /min Roque Delgado MD Work Phone: [facility] 11-16-2023 10:58-0400 SaO2% (BldA) [Mass fraction] 97 % Roque Delgado MD Work Phone: [facility] 11-16-2023 10:58-0400 Systolic blood pressure 109 mm[Hg] Roque Delgado MD Work Phone: [facility] 11-09-2023 09:17-0400 Body mass index (BMI) [Ratio] 39.92 kg/m2 Miryam Tannhof EMPLOYMENT PROGRAM REPRESENTATIVE.[employer] Work Phone: [facility] 11-09-2023 09:17-0400 Body weight 99 kg Miryam Jigarhof EMPLOYMENT PROGRAM REPRESENTATIVE.S[employer]GER [employer]ER Work Phone: [facility] 11-09-2023 09:17-0400 Diastolic blood pressure 60 mm[Hg] Miryam Tannhof EMPLOYMENT PROGRAM REPRESENTATIVE.SAGGER [employer]KER Work Phone: [facility] 11-09-2023 09:17-0400 Heart rate 104 /min Miryam Tannhof EMPLOYMENT PROGRAM REPRESENTATIVE.SAGGER [employer]KER Work Phone: [facility] 11-09-2023 09:17-0400 Respiratory rate 16 /min Miryam Tannhof EMPLOYMENT PROGRAM REPRESENTATIVE.S[employer]GER [employer]KER Work Phone: [facility] 11-09-2023 09:17-0400 SaO2% (BldA) [Mass fraction] 100 % Miryam Jigarhof EMPLOYMENT PROGRAM REPRESENTATIVE.SAGGER MAKER Work Phone: [facility] 11-09-2023 09:17-0400 Systolic blood pressure 106 mm[Hg] Miryam Tannhof EMPLOYMENT PROGRAM REPRESENTATIVE.SAGGER MAKER Work Phone: [facility] 07-22-2023 12:45-0400 Body weight 101.15 kg Miryampoonam Kimballhof EMPLOYMENT PROGRAM REPRESENTATIVE.SAGGER MAKER Work Phone: [facility] 07-22-2023 12:45-0400 Diastolic blood pressure 70 mm[Hg] Miryam Tannhof EMPLOYMENT PROGRAM REPRESENTATIVE.SAGGER MAKER Work Phone: [facility] 07-22-2023 12:45-0400 Heart rate 78 /min Miryam Kimballhof EMPLOYMENT PROGRAM REPRESENTATIVE.SAGGER MAKER Work Phone: [facility] 07-22-2023 12:45-0400 Respiratory rate 16 /min Miryma Kimballhof EMPLOYMENT PROGRAM REPRESENTATIVE.SAGGER [employer]KER Work Phone: [facility] 07-22-2023 12:45-0400 SaO2% (BldA) [Mass fraction] 97 % Miryam Kimballhof EMPLOYMENT PROGRAM REPRESENTATIVE.SAGGER MAKER Work Phone: [facility] 07-22-2023 12:45-0400 Systolic blood pressure 114 mm[Hg] Miryam Kimballhof EMPLOYMENT PROGRAM REPRESENTATIVE.SAGGER MAKER Work Phone: [facility] 07-15-2023 09:33-0400 Diastolic blood pressure 77 mm[Hg] Roque Delgado MD Work Phone: [facility] 07-15-2023 09:33-0400 Heart rate 76 /min Roque Delgado MD Work Phone: [facility] 07-15-2023 09:33-0400 Respiratory rate 15 /min Roque Delgado MD Work Phone: [facility] 07-15-2023 09:33-0400 SaO2% (BldA) [Mass fraction] 96 % Roque Delgado MD Work Phone: [facility] 07-15-2023 09:33-0400 Systolic blood pressure 114 mm[Hg] Roque Delgado MD Work Phone: [facility] 06-09-2023 09:05-0500 SaO2% (BldA) [Mass fraction] 93 % Dr. Judson Toney Work Phone: [facility] 06-09-2023 08:18-0500 Body temperature 98 [degF] Dr. Judson Toney Work Phone: [facility] 06-09-2023 08:18-0500 Diastolic blood pressure 77 mm[Hg] Dr. Judson Toney Work Phone: [facility] 06-09-2023 08:18-0500 Heart rate 67 /min Dr. Judson Toney Work Phone: [facility] 06-09-2023 08:18-0500 Respiratory rate 18 /min Dr. Judson Toney Work Phone: [facility] 06-09-2023 08:18-0500 Systolic blood pressure 139 mm[Hg] Dr. Judson Toney Work Phone: [facility] 06-09-2023 04:54-0500 Body mass index (BMI) [Ratio] 40 kg/m2 Dr. Judson Toney Work Phone: [facility] 06-09-2023 04:54-0500 Body weight 98.[address] Judson Toney Work Phone: [facility] 06-08-2023 01:28-0500 Body height 157.[address] Judson Toney Work Phone: [facility] 06-07-2023 23:36-0500 Body temperature 97.5 [degF] [facility] 06-07-2023 23:36-0500 Diastolic blood pressure 69 mm[Hg] [facility] 06-07-2023 23:36-0500 Heart rate 98 /min [facility] 06-07-2023 23:36-0500 Respiratory rate 19 /min [facility] 06-07-2023 23:36-0500 SaO2% (BldA) [Mass fraction] 99 % [facility] 06-07-2023 23:36-0500 Systolic blood pressure 127 mm[Hg] [facility] 06-07-2023 19:09-0500 Body height 157.48 cm [facility] 06-07-2023 19:09-0500 Body mass index (BMI) [Ratio] 38.4 kg/m2 [facility] 06-07-2023 19:09-0500 Body weight 95.25 kg [facility] 06-02-2023 07:01-0500 Body height 157.5 [facility] PROGRAM REPRESENTATIVE.SAGGER MAKER Work Phone: [facility] 06-02-2023 07:01-0500 Body weight 98.[address] [facility] EMPLOYMENT PROGRAM REPRESENTATIVE.SAGGER MAKER Work Phone: [facility] 05-18-2023 13:33-0500 Diastolic blood pressure 56 mm[Hg] Roque Delgado MD Work Phone: [facility] 05-18-2023 13:33-0500 Heart rate 79 /min Roque Delgado MD Work Phone: [facility] 05-18-2023 13:33-0500 Respiratory rate 18 /min Roque Delgado MD Work Phone: [facility] 05-18-2023 13:33-0500 SaO2% (BldA) [Mass fraction] 97 % Roque Delgado MD Work Phone: [facility] 05-18-2023 13:33-0500 Systolic blood pressure 122 mm[Hg] Roque Delgado MD Work Phone: [facility] 03-02-2023 06:59-0500 Body height 157.5 cm [facility] EMPLOYMENT PROGRAM REPRESENTATIVE.SAGGER MAKER Work Phone: [facility] 03-02-2023 06:59-0500 Body weight 104.[address] [facility] EMPLOYMENT PROGRAM REPRESENTATIVE.SAGGER MAKER Work Phone: [facility] 02-16-2023 12:02-0500 Diastolic blood pressure 77 mm[Hg] Roque Delgado MD Work Phone: [facility] 02-16-2023 12:02-0500 Heart rate 54 /min Roque Delgado MD Work Phone: [facility] 02-16-2023 12:02-0500 Respiratory rate 17 /min Roque Delgado MD Work Phone: [facility] 02-16-2023 12:02-0500 SaO2% (BldA) [Mass fraction] 99 % Roque Delgado MD Work Phone: [facility] 02-16-2023 12:02-0500 Systolic blood pressure 130 mm[Hg] Roque Delgado MD Work Phone: [facility] 01-15-2023 08:19-0400 Heart rate 71 /min oRque Delgado MD Work Phone: [facility] 01-15-2023 08:19-0400 Respiratory rate 18 /min Roque Delgado MD Work Phone: [facility] 01-15-2023 08:19-0400 SaO2% (BldA) [Mass fraction] 97 % Roque Delgado MD Work Phone: [facility] 12-22-2022 08:51-0400 Body weight 104.33 kg Miryam Tannhof EMPLOYMENT PROGRAM REPRESENTATIVE.SAGGER [employer]ER Work Phone: [facility] 12-22-2022 08:51-0400 Diastolic blood pressure 72 mm[Hg] Miryam Tannhof EMPLOYMENT PROGRAM REPRESENTATIVE.SAGGER MAKER Work Phone: [facility] 12-22-2022 08:51-0400 Heart rate 61 /min Miryam Tannhof EMPLOYMENT PROGRAM REPRESENTATIVE.SAGGER MAKER Work Phone: [facility] 12-22-2022 08:51-0400 Respiratory rate 16 /min Miryam Tannhof EMPLOYMENT PROGRAM REPRESENTATIVE.SAGGER MAKER Work Phone: [facility] 12-22-2022 08:51-0400 SaO2% (BldA) [Mass fraction] 96 % Miryam Tannhof EMPLOYMENT PROGRAM REPRESENTATIVE.SAGGER MAKER Work Phone: [facility] 12-22-2022 08:51-0400 Systolic blood pressure 112 mm[Hg] Miryam Tannhof EMPLOYMENT PROGRAM REPRESENTATIVE.SAGGER MAKER Work Phone: [facility] 10-16-2022 08:03-0400 Heart rate 79 /min Roque Delgado MD Work Phone: [facility] 10-16-2022 08:03-0400 Respiratory rate 16 /min Roque Delgado MD Work Phone: [facility] 10-16-2022 08:03-0400 SaO2% (BldA) [Mass fraction] 95 % Roque Delgado MD Work Phone: [facility] 10-03-2022 09:26-0400 Body height 154.[address] Lizy Capone Work Phone: [facility] 10-03-2022 09:26-0400 Body mass index (BMI) [Ratio] 45.9 kg/m2 Dr. Lizy Capone Work Phone: [facility] 10-03-2022 09:26-0400 Body weight 110.[address] Lizy Capone Work Phone: [facility] 10-03-2022 09:26-0400 Diastolic blood pressure 74 mm[Hg] Dr. Lizy Capone Work Phone: [facility] 10-03-2022 09:26-0400 Heart rate 61 /min Dr. Lizy Capone Work Phone: [facility] 10-03-2022 09:26-0400 Respiratory rate 18 /min Dr. Lizy Capone Work Phone: [facility] 10-03-2022 09:26-0400 Systolic blood pressure 121 mm[Hg] Dr. Lizy Capone Work Phone: [facility] 10-02-2022 09:55-0400 Heart rate 62 /min Roque Delgado MD Work Phone: [facility] 10-02-2022 09:55-0400 Respiratory rate 17 /min Roque Delgado MD Work Phone: [facility] 10-02-2022 09:55-0400 SaO2% (BldA) [Mass fraction] 97 % Roque Delgado MD Work Phone: [facility] 08-13-2022 15:20-0400 Diastolic blood pressure 81 mm[Hg] Roque Delgado MD Work Phone: [facility] 08-13-2022 15:20-0400 Heart rate 53 /min Roque Delgado MD Work Phone: [facility] 08-13-2022 15:20-0400 Respiratory rate 15 /min Roque Delgado MD Work Phone: [facility] 08-13-2022 15:20-0400 SaO2% (BldA) [Mass fraction] 97 % Roque Delgado MD Work Phone: [facility] 08-13-2022 15:20-0400 Systolic blood pressure 131 mm[Hg] Roque Delgado MD Work Phone: [facility] 08-01-2022 07:31-0400 Body height 154.[address] Lizy Capone Work Phone: [facility] 08-01-2022 07:31-0400 Body weight 135.[address] Lizy Capone Work Phone: [facility] 07-31-2022 07:19-0400 Body mass index (BMI) [Ratio] 56.5 kg/m2 Dr. Lizy Capone Work Phone: [facility] 07-30-2022 14:35-0400 Diastolic blood pressure 59 mm[Hg] Roque Delgado MD Work Phone: [facility] 07-30-2022 14:35-0400 Heart rate 55 /min Rouqe Delgado MD Work Phone: [facility] 07-30-2022 14:35-0400 Respiratory rate 16 /min Roque Delgado MD Work Phone: [facility] 07-30-2022 14:35-0400 SaO2% (BldA) [Mass fraction] 100 % Roque Delgado MD Work Phone: [facility] 07-30-2022 14:35-0400 Systolic blood pressure 129 mm[Hg] Roque Delgado MD Work Phone: [facility] 06-30-2022 09:29-0400 Body height 157.5 cm Ragini Gomes APRN.CNP Work Phone (unformatted): [phone] [facility] 03-27-2023 09:29-0400 Body weight 135.63 kg Ragini Barley EMPLOYMENT PROGRAM REPRESENTATIVE.[employer] Work Phone (unformatted): [phone] [facility] 06-30-2022 09:29-0400 Diastolic blood pressure 80 mm[Hg] Ragini Barley EMPLOYMENT PROGRAM REPRESENTATIVE.SAGGER [employer]KER Work Phone (unformatted): [phone] [facility] 06-30-2022 09:29-0400 Heart rate 66 /min Ragini Barley EMPLOYMENT PROGRAM REPRESENTATIVE.SAGGER MAKER Work Phone (unformatted): [phone] [facility] 06-30-2022 09:29-0400 Respiratory rate 16 /min Ragini Barley EMPLOYMENT PROGRAM REPRESENTATIVE.SAGGER [employer]KER Work Phone (unformatted): [phone] [facility] 06-30-2022 09:29-0400 SaO2% (BldA) [Mass fraction] 94 % Ragini Barley EMPLOYMENT PROGRAM REPRESENTATIVE.SAGGER [employer]ER Work Phone (unformatted): [phone] [facility] 06-30-2022 09:29-0400 Systolic blood pressure 135 mm[Hg] Ragini Barley EMPLOYMENT PROGRAM REPRESENTATIVE.SAGGER [employer]KER Work Phone (unformatted): [phone] [facility] 06-27-2022 10:23-0400 Body mass index (BMI) [Ratio] 56.5 kg/m2 Dr. Lizy Capone Work Phone: [facility] 06-27-2022 10:23-0400 Body weight 135.[address] Lizy Capone Work Phone: [facility] 06-27-2022 10:23-0400 Diastolic blood pressure 80 mm[Hg] Dr. Lizy Capone Work Phone: [facility] 06-27-2022 10:23-0400 Heart rate 68 /min Dr. Lizy Capone Work Phone: [facility] 06-27-2022 10:23-0400 Respiratory rate 18 /min Dr. Lizy Capone Work Phone: [facility] 06-27-2022 10:23-0400 Systolic blood pressure 143 mm[Hg] Dr. Lizy Capone Work Phone: [facility] 06-26-2022 08:54-0400 Body weight 135.63 kg Miryam Poncef EMPLOYMENT PROGRAM REPRESENTATIVE.S[employer]ER Work Phone: [facility] 06-26-2022 08:54-0400 Diastolic blood pressure 76 mm[Hg] Miryam Jigarhof EMPLOYMENT PROGRAM REPRESENTATIVE.SAGGER [employer]ER Work Phone: [facility] 06-26-2022 08:54-0400 Heart rate 77 /min Miryam Jigarhof EMPLOYMENT PROGRAM REPRESENTATIVE.[employer] Work Phone: [facility] 06-26-2022 08:54-0400 Respiratory rate 20 /min Miryam Jigarhof EMPLOYMENT PROGRAM REPRESENTATIVE.SAGGER MAKER Work Phone: [facility] 06-26-2022 08:54-0400 SaO2% (BldA) [Mass fraction] 96 % Miryam Jigarhof EMPLOYMENT PROGRAM REPRESENTATIVE.SAGGER MAKER Work Phone: [facility] 06-26-2022 08:54-0400 Systolic blood pressure 124 mm[Hg] Miryam Kimballhof EMPLOYMENT PROGRAM REPRESENTATIVE.SAGGER MAKER Work Phone: [facility] 05-13-2022 15:21-0500 Body height 157.5 cm Jae Cagle MD Work Phone: [facility] 05-13-2022 15:21-0500 Body temperature 98.01 [degF] Jae Cagle MD Work Phone: [facility] 05-13-2022 15:21-0500 Body weight 129.28 kg Jae Cagle MD Work Phone: [facility] 05-13-2022 15:21-0500 Diastolic blood pressure 58 mm[Hg] Jae Cagle MD Work Phone: [facility] 05-13-2022 15:21-0500 Heart rate 74 /min Jae Cagle MD Work Phone: [facility] 05-13-2022 15:21-0500 SaO2% (BldA) [Mass fraction] 91 % Jae Cagle MD Work Phone: [facility] 05-13-2022 15:21-0500 Systolic blood pressure 108 mm[Hg] Jae Cagle MD Work Phone: [facility] 03-06-2022 09:55-0500 Body height 154.[address] Lizy Capone Work Phone: [facility] 03-06-2022 09:55-0500 Body mass index (BMI) [Ratio] 50.6 kg/m2 Dr. Lizy Capone Work Phone: [facility] 03-06-2022 09:55-0500 Body weight 121.[address] Lizy Capone Work Phone: [facility] 03-06-2022 09:55-0500 Diastolic blood pressure 77 mm[Hg] Dr. Lizy Capone Work Phone: [facility] 03-06-2022 09:55-0500 Heart rate 59 /min Dr. Lizy Capone Work Phone: [facility] 03-06-2022 09:55-0500 Respiratory rate 18 /min Dr. Lizy Capone Work Phone: [facility] 03-06-2022 09:55-0500 Systolic blood pressure 151 mm[Hg] Dr. Lizy Capone Work Phone: [facility] 01-30-2022 15:50-0400 Heart rate 67 /min Roque Delgado MD Work Phone: [facility] 01-30-2022 15:50-0400 Respiratory rate 18 /min Roque Delgado MD Work Phone: [facility] 01-30-2022 15:50-0400 SaO2% (BldA) [Mass fraction] 97 % Roque Delgado MD Work Phone: [facility] 01-14-2022 15:42-0400 Body height 154.[address] Lizy Capone Work Phone: [facility] Work Phone: 01-14-2022 15:42-0400 Body mass index (BMI) [Ratio] 49.8 kg/m2 Dr. Lizy Capone Work Phone: [facility] Work Phone: 01-14-2022 15:42-0400 Body weight 119.[address] Lizy Capone Work Phone: [facility] Work Phone: 01-14-2022 15:42-0400 Diastolic blood pressure 73 mm[Hg] Dr. Lizy Capone Work Phone: [facility] Work Phone: 01-14-2022 15:42-0400 Heart rate 60 /min Dr. Lizy Capone Work Phone: [facility] Work Phone: 01-14-2022 15:42-0400 Respiratory rate 18 /min Dr. Lizy Capone Work Phone: [facility] Work Phone: 01-14-2022 15:42-0400 SaO2% (BldA) [Mass fraction] 95 % Dr. Lizy Capone Work Phone: [facility] Work Phone: 01-14-2022 15:42-0400 Systolic blood pressure 158 mm[Hg] Dr. Lizy Capone Work Phone: [facility] Work Phone: 01-08-2022 11:38-0400 Body temperature 97.9 [degF] Roque Delgado MD Work Phone: [facility] 01-08-2022 11:38-0400 Diastolic blood pressure 70 mm[Hg] Roque Delgado MD Work Phone: [facility] 01-08-2022 11:38-0400 Respiratory rate 16 /min Roque Delgado MD Work Phone: [facility] 01-08-2022 11:38-0400 SaO2% (BldA) [Mass fraction] 100 % Roque Delgado MD Work Phone: [facility] 01-08-2022 11:38-0400 Systolic blood pressure 148 mm[Hg] Roque Delgado MD Work Phone: [facility] 01-08-2022 10:36-0400 Heart rate 64 /min Roque Delgado MD Work Phone: [facility] 01-02-2022 07:07-0400 Body weight 119.75 kg Miryam Jigarhof EMPLOYMENT PROGRAM REPRESENTATIVE.SAGGER MAKER Work Phone: [facility] 01-02-2022 07:07-0400 Diastolic blood pressure 80 mm[Hg] Miryam Tannhof EMPLOYMENT PROGRAM REPRESENTATIVE.SAGGER MAKER Work Phone: [facility] 01-02-2022 07:07-0400 Heart rate 61 /min Miryam Jigarhof EMPLOYMENT PROGRAM REPRESENTATIVE.SAGGER MAKER Work Phone: [facility] 01-02-2022 07:07-0400 Respiratory rate 20 /min Miryampoonam Kimballhof EMPLOYMENT PROGRAM REPRESENTATIVE.SAGGER MAKER Work Phone: [facility] 01-02-2022 07:07-0400 SaO2% (BldA) [Mass fraction] 98 % Miryam Kimballhof EMPLOYMENT PROGRAM REPRESENTATIVE.SAGGER MAKER Work Phone: [facility] 01-02-2022 07:07-0400 Systolic blood pressure 138 mm[Hg] Miryam Kimballhof EMPLOYMENT PROGRAM REPRESENTATIVE.SAGGER MAKER Work Phone: [facility] 12-26-2021 14:38-0400 Body height 157.5 cm Avis Yaron EMPLOYMENT PROGRAM REPRESENTATIVE.SAGGER MAKER Work Phone: [facility] 12-26-2021 14:38-0400 Body weight 104.33 kg Avis Españafield EMPLOYMENT PROGRAM REPRESENTATIVE.SAGGER MAKER Work Phone: [facility] 12-26-2021 12:36-0400 Body temperature 96.8 [degF] Dr. Lizy Capone Work Phone: [facility] Work Phone: 12-26-2021 12:36-0400 Diastolic blood pressure 76 mm[Hg] Dr. Lizy Capone Work Phone: [facility] Work Phone: 12-26-2021 12:36-0400 Heart rate 65 /min Dr. Lizy Capone Work Phone: [facility] Work Phone: 12-26-2021 12:36-0400 Respiratory rate 18 /min Dr. Lizy Capone Work Phone: [facility] Work Phone: 12-26-2021 12:36-0400 SaO2% (BldA) [Mass fraction] 97 % Dr. Lizy Capone Work Phone: [facility] Work Phone: 12-26-2021 12:36-0400 Systolic blood pressure 145 mm[Hg] Dr. Lizy Capone Work Phone: [facility] Work Phone: 12-26-2021 07:36-0400 Body height 154.[address] Lizy Capone Work Phone: [facility] Work Phone: 12-25-2021 13:06-0400 Diastolic blood pressure 67 mm[Hg] Roque Delgado MD Work Phone: [facility] 12-25-2021 13:06-0400 Heart rate 57 /min Roque Delgado MD Work Phone: [facility] 12-25-2021 13:06-0400 Respiratory rate 18 /min Roque Delgado MD Work Phone: [facility] 12-25-2021 13:06-0400 SaO2% (BldA) [Mass fraction] 98 % Roque Delgado MD Work Phone: [facility] 12-25-2021 13:06-0400 Systolic blood pressure 142 mm[Hg] Roque Delgado MD Work Phone: [facility] 12-25-2021 13:03-0400 Body temperature 97.7 [degF] Roque Delgado MD Work Phone: [facility] 12-19-2021 09:20-0400 Body temperature 98 [degF] Dr. Lizy Capone Work Phone: [facility] Work Phone: 12-19-2021 09:20-0400 Body weight 120.[address] Lizy Capone Work Phone: [facility] Work Phone: 12-19-2021 09:20-0400 Diastolic blood pressure 67 mm[Hg] Dr. Lizy Capone Work Phone: [facility] Work Phone: 12-19-2021 09:20-0400 Heart rate 67 /min Dr. Lizy Capone Work Phone: [facility] Work Phone: 12-19-2021 09:20-0400 Respiratory rate 18 /min Dr. Lizy Capone Work Phone: [facility] Work Phone: 12-19-2021 09:20-0400 SaO2% (BldA) [Mass fraction] 98 % Dr. Lizy Capone Work Phone: [facility] Work Phone: 12-19-2021 09:20-0400 Systolic blood pressure 134 mm[Hg] Dr. Lizy Capone Work Phone: [facility] Work Phone: 09-19-2021 09:23-0400 Heart rate 63 /min Avis Marrufo EMPLOYMENT PROGRAM REPRESENTATIVE.SAGGER MAKER Work Phone: [facility] 09-19-2021 09:23-0400 Respiratory rate 18 /min Avis Marrufo EMPLOYMENT PROGRAM REPRESENTATIVE.SAGGER MAKER Work Phone: [facility] 09-19-2021 09:23-0400 SaO2% (BldA) [Mass fraction] 97 % Avis Marrufo EMPLOYMENT PROGRAM REPRESENTATIVE.SAGGER MAKER Work Phone: [facility] 08-06-2021 13:23-0400 Body height 154.[address] Lizy Capone Work Phone: [facility] Work Phone: 08-06-2021 13:23-0400 Body mass index (BMI) [Ratio] 43.6 kg/m2 Dr. Lizy Capone Work Phone: [facility] Work Phone: 08-06-2021 13:23-0400 Body weight 104.[address] Lizy Capone Work Phone: [facility] Work Phone: 08-06-2021 13:23-0400 Diastolic blood pressure 79 mm[Hg] Dr. Lizy Capone Work Phone: [facility] Work Phone: 08-06-2021 13:23-0400 Heart rate 74 /min Dr. Lizy Capone Work Phone: [facility] Work Phone: 08-06-2021 13:23-0400 Respiratory rate 18 /min Dr. Lizy Capone Work Phone: [facility] Work Phone: 08-06-2021 13:23-0400 SaO2% (BldA) [Mass fraction] 95 % Dr. Lizy Capone Work Phone: [facility] Work Phone: 08-06-2021 13:23-0400 Systolic blood pressure 145 mm[Hg] Dr. Lizy Capone Work Phone: [facility] Work Phone: 08-06-2021 13:23-0400 Body height 154.[address] Lizy Capone Work Phone: [facility] Work Phone: 08-06-2021 13:23-0400 Body mass index (BMI) [Ratio] 43.6 kg/m2 Dr. Lizy Capone Work Phone: [facility] Work Phone: 08-06-2021 13:23-0400 Body weight 104.[address] Lizy Capone Work Phone: [facility] Work Phone: 08-06-2021 13:23-0400 Diastolic blood pressure 79 mm[Hg] Dr. Lizy Capone Work Phone: [facility] Work Phone: 08-06-2021 13:23-0400 Heart rate 74 /min Dr. Lizy Capone Work Phone: [facility] Work Phone: 08-06-2021 13:23-0400 Respiratory rate 18 /min Dr. Lizy Capone Work Phone: [facility] Work Phone: 08-06-2021 13:23-0400 SaO2% (BldA) [Mass fraction] 95 % Dr. Lizy Capone Work Phone: [facility] Work Phone: 08-06-2021 13:23-0400 Systolic blood pressure 145 mm[Hg] Dr. Lizy Capone Work Phone: [facility] Work Phone: 07-16-2021 09:08-0400 Body weight 104.42 kg Liyz Capone MD Work Phone: [facility] 07-16-2021 09:08-0400 Diastolic blood pressure 64 mm[Hg] Lizy Capone MD Work Phone: [facility] 07-16-2021 09:08-0400 Heart rate 72 /min Lizy Capone MD Work Phone: [facility] 07-16-2021 09:08-0400 Respiratory rate 16 /min Lizy Capone MD Work Phone: [facility] 07-16-2021 09:08-0400 Systolic blood pressure 110 mm[Hg] Lizy Capone MD Work Phone: [facility] Encounters Encounter Date Encounter Type Care Provider Facility Start: 10-27-2024 End: 10-27-2024 Telephone encounter Lizy Capone MD Work Phone: [facility] Comment on above: Orders Start: 10-26-2024 End: 10-26-2024 Miryampoonam Orozco [employer] Work Phone: -Emergency Department Work Phone: Start: 10-26-2024 [facility] Start: 10-26-2024 End: 10-26-2024 Emergency department patient visit Miryam Orozco [employer] Work Phone: -Emergency Department Start: 10-25-2024 End: 10-25-2024 Dr. Norberto Jackson MD -[facility] Work Phone: Start: 10-25-2024 End: 10-25-2024 ambulatory Miryam Orozco [employer]C Work Phone: -[facility] Start: 10-25-2024 ambulatory Gonzalo Lomax Facility:[facility] Start: 10-25-2024 Dr. Gonzalo Lomax MD -[facility] Start: 10-24-2024 End: 10-24-2024 Transitional care manage srvc 7 day discharge Lizy Capone MD Work Phone: [facility] Comment on above: BENIGN HYPERTENSION( aka HTN) (Primary Dx); Seizures (HCC); Hypothyroidism, acquired; Renal failure, unspecified chronicity; CKD (chronic kidney disease) stage 4, GFR 15-29 ml/min (HCC); Insomnia, unspecified type; Recurrent UTI (urinary tract infection); Bilateral leg edema Start: 10-24-2024 End: 10-24-2024 ambulatory LIZY CAPONE Facility:[facility] Start: 10-24-2024 ambulatory Miryam Orozco Facility :[facility] Start: 10-24-2024 Dr. Gonzalo Lomax MD -[facility] Work Phone: Start: 10-21-2024 End: 10-24-2024 Patient Outreach Alex Lackey MA [facility] Comment on above: Transition Of Care Patient Update Start: 10-20-2024 End: 10-20-2024 Telephone encounter Lizy Capone MD Work Phone: [facility] Comment on above: Follow HH Start: 10-14-2024 ambulatory William Cruz Facility :[facility] Start: 10-14-2024 William Friend DO -[facility] Start: 10-14-2024 End: 10-14-2024 William Cruz DO -Endoscopy Work Phone: Start: 10-14-2024 End: 10-14-2024 ambulatory Miryampoonam Kimballhof [employer] Work Phone: -Endoscopy Start: 10-12-2024 End: 10-12-2024 Miryampoonam Kimballhof [employer]C Work Phone: -Emergency Department Work Phone: Start: 10-12-2024 End: 10-12-2024 Emergency department patient visit Miryampoonam Serraf [employer]C Work Phone: -Emergency Department Start: 10-11-2024 ambulatory Russell Gonzalez Facility:[facility] Start: 10-11-2024 Dr. Russell Gonzalez MD -[facility] Start: 10-11-2024 End: 10-11-2024 ambulatory Miryam Serraf [employer] Work Phone: -Cardiovascular Services Start: 10-11-2024 End: 10-11-2024 Dr. Gautam Hardy MD -Cardiovascular Services Work Phone: Start: 10-10-2024 End: 10-11-2024 ambulatory Miryampoonam Kimballhof Facility:[facility] Start: 10-10-2024 Dr. Gonzalo Lomax MD -[facility] Start: 10-04-2024 End: 10-20-2024 Dr. Gautam Hardy MD -Transitional Care Unit Start: 10-04-2024 End: 10-20-2024 Evaluation and management of inpatient Miryampoonam Kimballhof [employer]C Work Phone: -Transitional Care Unit Start: 10-04-2024 Dr. Alex Acosta DO -[facility] Work Phone: Start: 10-04-2024 Dr. Chayo Hernandez MD -[facility] Work Phone: Start: 10-03-2024 Dr. Alex Acotsa DO -[facility] Work Phone: Start: 10-02-2024 Dr. Alex Acosta DO -[facility] Work Phone: Start: 10-01-2024 Dr. Alex Acosta DO -[facility] Work Phone: Start: 09-30-2024 Dr. Russell Todd DO -[facility] Work Phone: Start: 09-29-2024 End: 09-30-2024 Telephone encounter Lizy Capone MD Work Phone: [facility] Comment on above: Patient Update Start: 09-29-2024 Dr. Russell Todd DO -[facility] Work Phone: Start: 09-28-2024 ambulatory [facility] Facility :[facility] Start: 09-28-2024 End: 10-04-2024 Evaluation and management of inpatient [facility] [employer] Work Phone: [facility] Work Phone: Start: 09-28-2024 End: 10-04-2024 Dr. Michelle Gallardo MD -Progressive Care Unit Work Phone: Start: 09-22-2024 End: 09-22-2024 Office outpatient visit 25 minutes Lizy Capone MD Work Phone: [facility] Comment on above: BENIGN HYPERTENSION( aka HTN) (Primary Dx); Lumbar spondylosis; Myofascial pain; Hypothyroidism, acquired; Anemia in chronic kidney disease, unspecified CKD stage; CKD (chronic kidney disease) stage 4, GFR 15-29 ml/min (HCC); Bilateral leg edema Start: 09-22-2024 End: 09-22-2024 ambulatory LIZY CAPONE Facility:[facility] Start: 09-20-2024 End: 09-20-2024 Follow-up encounter Lizy Capone MD Work Phone: [facility] Start: 09-20-2024 ambulatory Gonzalo Alenagumaro Facility:[facility] Start: 09-20-2024 Dr. Gonzalo Lomax MD - [facility] Start: 09-19-2024 End: 10-03-2024 ambulatory Miryam Orozco [employer] Work Phone: -[facility] [place] Start: 09-19-2024 End: 10-03-2024 Dr. Gonzalo Lomax MD -[facility] Work Phone: Start: 09-15-2024 End: 09-15-2024 Patient encounter procedure Michael Carter APRN.CNP Work Phone: [facility] Comment on above: Subacute cough (Prim maximus Dx); Leg swelling; SOB (shortness of breath); Lower respiratory infection Start: 09-15-2024 End: 09-15-2024 ambulatory MICHAEL CARTER Facility:[facility] Start: 09-14-2024 End: 09-15-2024 Telephone encounter Lizy Capone MD Work Phone: [facility] Comment on above: Results Start: 09-12-2024 ambulatory LIZY CAPONE Facil ity:[facility] Start: 09-12-2024 End: 09-12-2024 Subsequent hospital visit by physician Xr [facility] Work Phone: Radiology Comment on above: Subacute cough [R05. 2] Start: 09-12-2024 ambulatory Gonzalo Alenagumaro Facility:[facility] Start: 09-12-2024 Dr. Gonzalo Lomax MD [facility] Start: 09-12-2024 End: 09-12-2024 Telephone encounter Lizy Capone MD Work Phone: [facility] Comment on above: Patient Question; Or ders Start: 09-07-2024 End: 09-08-2024 Telephone encounter Lizy Capone MD Work Phone: [facility] Comment on above: Patient Update Start: 09-06-2024 End: 09-06-2024 Dr. Gonzalo Lomax MD -Surgical Day Care Start: 09-06-2024 End: 09-06-2024 ambulatory Miryam Jigarhof [employer] Work Phone: [facility] Work Phone: Start: 09-05-2024 End: 09-05-2024 Telephone encounter Lizy Capone MD Work Phone: [facility] Comment on above: Medication Question Start: 09-05-2024 End: 09-05-2024 Dr. Mehdi Womack MD -[facility] Work Phone: Start: 09-05-2024 End: 09-05-2024 ambulatory [facility] [employer] Work Phone: [facility] Work Phone: Start: 09-04-2024 End: 09-04-2024 ambulatory SELF Facility:[facility] Start: 09-04-2024 End: 09-05-2024 Patient encounter procedure Deacon Valdez EMPLOYMENT PROGRAM REPRESENTATIVE.SAGGER MAKER Work Phone: [facility] Comment on above: Lower respiratory in fection (Primary Dx) Refill Request Start: 09-01-2024 End: 09-03-2024 ambulatory [facility] [employer]C Work Phone: [facility] Work Phone: Start: 09-01-2024 End: 09-03-2024 Dr. Gonzalo Lomax [facility] Work Phone: Start: 08-30-2024 End: 09-01-2024 Telephone encounter Lizy Capone MD Work Phone: [facility] Comment on above: Patient Update Start: 08-22-2024 End: 08-22-2024 ambulatory LIZY CAPONE Facility:[facility] Start: 08-22-2024 End: 08-22-2024 Office outpatient visit 25 minutes Lizy Capone MD Work Phone: [facility] Comment on above: BENIGN HYPERTENSION( aka [...] unspecified type Start: 08-22-2024 End: 08-22-2024 ambulatory [facility] Facility:[facility] Start: 08-22-2024 ambulatory Gonzalo Lomax Facility:[facility] Start: 08-22-2024 Dr. Gonzalo Lara [facility] Start: 08-18-2024 ambulatory [facility] Facility :[facility] Start: 08-18-2024 Gustavo Lara Gerry Turcios Start: 08-16-2024 ambulatory [facility] Facility :[facility] Start: 08-16-2024 Gustavo Lara Gerry Turcios Start: 08-15-2024 ambulatory Gonzalo Lomax Facility:[facility] Start: 08-15-2024 Dr. Gonzalo Lara [facility] Start: 08-12-2024 End: 08-12-2024 Dr. Gonzalo Lomax MD -[facility] Work Phone: Start: 08-12-2024 End: 08-12-2024 ambulatory [facility] Facility:[facility] Start: 08-08-2024 ambulatory [facility] Facility :[facility] Start: 08-08-2024 Gustavo Lara Gerry Turcios Start: 08-01-2024 ambulatory Gustavo Rosario cility:[facility] Start: 08-01-2024 Gustavo Turcios Start: 07-29-2024 End: 07-29-2024 [facility] [employer] Work Phone: -Emergency Department Work Phone: Start: 07-29-2024 End: 07-29-2024 Emergency department patient visit Miryam Oroczo [employer]C Work Phone: [facility] Work Phone: Start: 07-25-2024 ambulatory Efewongbe Oleghe OLS Fa cility:[facility] Start: 07-25-2024 Gustavo Turcios Start: 07-20-2024 End: 07-20-2024 ambulatory Miryam Orozco [employer]C Work Phone: [facility] Work Phone: Start: 07-20-2024 End: 07-20-2024 Minna BARAHONA -[facility] Work Phone: Start: 07-18-2024 ambulatory Efewongbe Oleghe OLS Fa cility:[facility] Start: 07-18-2024 Gustavo Turcios Start: 07-11-2024 ambulatory Efewongbe Oleghe OLS Fa cility:[facility] Start: 07-11-2024 Gustavo Garrett - [facility] Start: 07-04-2024 ambulatory Efewongbe Oleghe OLS Fa cility:[facility] Start: 07-04-2024 Gustavo Turcios Start: 07-01-2024 End: 07-04-2024 Refill Lizy Capone MD Work Phone: [facility] Comment on above: Refill Request Start: 06-27-2024 ambulatory Efewongbe Oleghe OLS Fa cility:[facility] Start: 06-27-2024 Gustavo Turcios Start: 06-22-2024 End: 06-22-2024 ambulatory Miryam Orozco Facility:[facility] Start: 06-22-2024 End: 06-22-2024 Minna HUNTC -[facility] Work Phone: Start: 06-20-2024 ambulatory Gustavo Castorena OLS Fa cility:[facility] Start: 06-20-2024 Gustavo Castorena MD [facility] Gerry Turcios Start: 06-14-2024 End: 06-14-2024 ambulatory [facility] Facility:[facility] Start: 06-14-2024 End: 06-14-2024 Dr. Gustavo Castorena MD [facility] Work Phone: Start: 06-13-2024 End: 06-13-2024 ambulatory Minna Villarreal Facility:[facility] Start: 06-13-2024 End: 06-13-2024 [facility] Start: 06-10-2024 Dr. Mari Mehta [facility] Work Phone: Start: 06-09-2024 Dr. Mari Mehta [facility] Work Phone: Start: 06-07-2024 Christa Michel RN -[facility] Work Phone: Start: 06-07-2024 ambulatory [facility] Facility :[facility] Start: 06-07-2024 Dr. Mari Mehta [facility] Work Phone: Start: 06-06-2024 Dr. Mari Mehta [facility] Work Phone: Start: 06-02-2024 Dr. Mari Mehta [facility] Work Phone: Start: 05-31-2024 Dr. Mari Mehta [facility] Work Phone: Start: 05-30-2024 Dr. Mari Mehta [facility] Work Phone: Start: 05-27-2024 Dr. Mari Mehta [facility] Work Phone: Start: 05-26-2024 Dr. Mari Mehta [facility] Work Phone: Start: 05-23-2024 Dr. Mari Mehta [facility] Work Phone: Start: 05-20-2024 Dr. Mari Mehta [facility] Work Phone: Start: 05-19-2024 Dr. Mari Mehta [facility] Work Phone: Start: 05-18-2024 ambulatory Mari Mehta Facility:[facility] Start: 05-18-2024 End: 06-10-2024 Evaluation and management of inpatient Amir Adeli Facility:[facility] Start: 05-18-2024 End: 06-10-2024 Dr. Mari Mehta DO -Rehab Unit Work Phone: Start: 05-04-2024 End: 05-04-2024 ambulatory [facility] Facility:[facility] Start: 05-04-2024 End: 05-18-2024 Evaluation and management of inpatient Kindra Gannon MD Work Phone: [id number] Start: 05-04-2024 Dr. Edgar Davies DO -[facility] Start: 05-03-2024 Dr. Edgar Davies DO -[facility] -PMW Start: 05-02-2024 End: 05-02-2024 Telephone encounter Lizy Capone MD Work Phone: [facility] [place] Comment on above: Patient Update Start: 05-02-2024 Dr. Edgar Davies DO -[facility] -PMW Start: 05-02-2024 Dr. Ralph Haynes MD -[facility] Work Phone: Start: 05-02-2024 End: 05-02-2024 ambulatory Hua Arellano Facility:[facility] Start: 05-02-2024 End: 05-02-2024 Dr. Hua Arellano MD -[facility] Work Phone: Start: 05-01-2024 ambulatory Qian Albrecht Facil ity:[facility] Start: 05-01-2024 End: 05-04-2024 [facility] Start: 05-01-2024 End: 05-04-2024 Dr. Adithya Harrell MD -Intensive Care Uni t Work Phone: Start: 04-28-2024 End: 04-28-2024 ambulatory Miryam Kimballhof COOKER MECHANIC-C Work Phone: [facility] Work Phone: Start: 04-28-2024 End: 04-28-2024 Dr. Mari Mehta DO -Physical Therapy Work Phone: Start: 03-16-2024 End: 03-16-2024 ambulatory LIZY CAPONE Facility:[facility] Start: 03-07-2024 End: 03-07-2024 Refill Miryampoonam Kimballmirzaf EMPLOYMENT PROGRAM REPRESENTATIVE.CJ Work Phone: [facility] Comment on above: Refill Request Start: 03-04-2024 End: 03-04-2024 [facility] Start: 03-01-2024 ambulatory Miryam Tannhof Facility :[facility] Start: 02-24-2024 ambulatory Miryam Tannhof Facility :[facility] Start: 02-24-2024 End: 03-03-2024 [facility] Start: 02-16-2024 End: 02-16-2024 ambulatory Miryam Tannhof Facility:[facility] Start: 02-12-2024 End: 02-12-2024 Telephone encounter Liyz Capone MD Work Phone: [facility] Comment on above: medical clearance fo rm ([facility] for shoulder surgery) Start: 02-09-2024 Patient encounter status Ashle y Russell COOKER MECHANIC-C Work Phone: [facility] Start: 02-09-2024 Encounter for other preprocedural examination [facility] Start: 02-09-2024 End: 02-09-2024 ambulatory Miryam Orozco Facility:[facility] Start: 01-28-2024 End: 01-28-2024 Patient encounter procedure Miryam Orozco APRN.CNP Work Phone: [facility] [place] Comment on above: BENIGN HYPERTENSION( aka HTN) (Primary Dx); Hyperlipidemia LDL goal <100; Leg swelling; Balance problem; Female stress incontinence; Hypothyroidism, acquired; Insomnia, unspecified type; CKD (chronic kidney disease) stage 4, GFR 15-29 ml/min (HCC); Chronic shoulder pain, unspecified laterality; Chronic right-sided low back pain without sciatica; Chronic knee pain, unspecified laterality; Encounter for immunization Start: 01-28-2024 End: 01-28-2024 ambulatory [facility] Facility:[facility] Start: 01-26-2024 End: 01-26-2024 [facility] Facility:[facility] Start: 12-29-2023 End: 02-08-2024 Telephone encounter Stephanie Jackson MD Work Phone: Orthopaedics Comment on above: Appointment Start: 12-17-2023 End: 12-17-2023 Patient encounter procedure Roque Delgado MD Work Phone: [facility] Comment on above: 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); Lumbar spondylosis Start: 12-17-2023 End: 12-17-2023 ambulatory ROQUE DELGADO Facility:[facility] Start: 12-16-2023 End: 12-17-2023 Telephone encounter Miryam Orozco APRN.CNP Work Phone: [facility] [place] Comment on above: Results (Labs ) Start: 12-14-2023 End: 12-14-2023 Telephone encounter Miryam Orozco APRN.CNP Work Phone: [facility] [place] Comment on above: Returning Patient's Call Start: 12-14-2023 End: 12-14-2023 ambulatory [facility] Facility:[facility] Start: 12-11-2023 End: 12-11-2023 Refill Miryam Orozco APRN.CNP Work Phone: [facility] Comment on above: Refill Request Start: 12-04-2023 End: 12-04-2023 ambulatory STARR MARQUES Facility:[facility] Start: 12-04-2023 End: 12-04-2023 Patient encounter procedure Starr Marques MD Work Phone: OB/Gynecology Comment on above: Complex endometrial hyperplasia with atypia (Primary Dx); IUD (intrauterine device) in place Start: 12-01-2023 End: 12-01-2023 ambulatory Qian Albrecht Facility:[facility] Start: 11-18-2023 Telephone encounter Roque Delgado MD Work Phone: [facility] Comment on above: Procedure Start: 11-16-2023 End: 11-16-2023 Patient encounter procedure Roque Delgado MD Work Phone: [facility] Start: 11-16-2023 End: 11-16-2023 ambulatory Roque Delgado MD Work Phone: [facility] Comment on above: Procedure; Pain (Marie ulder Pain) (RFA Right suprascapular) Start: 11-15-2023 Refill Mulugeta ÁLVAREZ RN.SAGGER MAKER Work Phone: [facility] Comment on above: Refill Request Start: 11-09-2023 End: 11-09-2023 Patient encounter procedure Miryam Orozco APRN.SAGGER MAKER Work Phone: [facility] Comment on above: Dizziness (Primary D x); BENIGN HYPERTENSION(aka HTN); Hyperlipidemia LDL goal <100; Leg swelling; CKD (chronic kidney disease) stage 4, GFR 15-29 ml/min (HCC); Female stress incontinence; Chronic right-sided low back pain without sciatica; Chronic knee pain, unspecified laterality; Chronic shoulder pain, unspecified laterality; Hypothyroidism, acquired; Insomnia, unspecified type Start: 11-09-2023 End: 11-09-2023 ambulatory LIZY CAPONE Facility:[facility] Start: 10-28-2023 Telephone encounter Roque Delgado MD Work Phone: [facility] Comment on above: Injections Start: 10-27-2023 Telephone encounter Roque Delgado MD Work Phone: [facility] Comment on above: Returning Patient's Call Start: 09-28-2023 Refill Lizy bran MD Work Phone: [facility] [place] Comment on above: Refill Request Start: 09-21-2023 Refill Lizy bran MD Work Phone: [facility] [place] Comment on above: Refill Request Start: 08-28-2023 Telephone encounter Roque Delgado MD Work Phone: [facility] Start: 08-27-2023 Telephone encounter Roque Delgado MD Work Phone: [facility] Comment on above: Returning Patient's Call Start: 08-14-2023 End: 08-14-2023 ambulatory Keyana Greenberg RYAN Work Phone: [facility] Comment on above: 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); Lumbar spondylosis; Myofascial pain; Pleurodynia Start: 08-14-2023 End: 08-14-2023 Telemedicine consultation with patient Keyana Greenberg PA-C Work Phone: [facility] Start: 08-14-2023 End: 08-14-2023 ambulatory KEYANA GREENBERG Facility:[facility] Start: 07-22-2023 End: 07-22-2023 Patient encounter procedure Miryam Orozco APRN.CNP Work Phone: [facility] [place] Comment on above: 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); Chronic right-sided low back pain without sciatica; Chronic knee pain, unspecified laterality; Chronic shoulder pain, unspecified laterality; Leg swelling; CKD (chronic kidney disease) stage 4, GFR 15-29 ml/min ([facility]); BENIGN HYPERTENSION(aka HTN); Hypothyroidism, acquired; Hyperlipidemia LDL goal <100; Insomnia, unspecified type; Chronic constipation Start: 07-15-2023 End: 07-15-2023 Patient encounter procedure Roque Delgado MD Work Phone: [facility] Start: 07-15-2023 End: 07-15-2023 ambulatory Roque Delgado MD Work Phone: [facility] Comment on above: Procedure (rfa); Chris n (Shoulder Pain) (left) Start: 06-29-2023 Refill Lizy bran MD Work Phone: [facility] Comment on above: Refill Request Start: 06-22-2023 Refill Miryam Orozco APRN.SAGGER MAKER Work Phone: [facility] Comment on above: Refill Request Start: 06-16-2023 Refill Roque Delgado MD Work Phone: [facility] Comment on above: Refill Request Start: 06-09-2023 Non-patient / Non-visit Dr. Pravin Toney Work Phone: [facility] Work Phone: Start: 06-08-2023 Non-patient / Non-visit Dr. 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) Start: 06-02-2023 End: 06-02-2023 Telemedicine consultation with patient Rebekah Bobo APRN.CNP Work Phone: [facility] Start: 06-02-2023 End: 06-02-2023 ambulatory REBEKAH BOBO Facility:[facility] Start: 05-20-2023 Telephone encounter Roque Delgado MD Work Phone: [facility] Comment on above: Procedure Start: 05-18-2023 End: 05-18-2023 Patient encounter procedure Roque Delgado MD Work Phone: [facility] Start: 05-18-2023 End: 05-18-2023 ambulatory Roque Delgado MD Work Phone: [facility] Comment on above: Procedure Start: 04-16-2023 End: 04-16-2023 ambulatory ROQUE DELGADO Facility:[facility] Start: 03-31-2023 End: 03-31-2023 Subsequent hospital visit by physician Tereso [facility] [place] Work Phone: Radiology Comment on above: Acute cough [R05.1] Start: 03-02-2023 End: 03-02-2023 ambulatory Rebekah Bobo EMPLOYMENT PROGRAM REPRESENTATIVE.SAGGER MAKER Work Phone: [facility] Comment on above: 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) Start: 03-02-2023 End: 03-02-2023 Telemedicine consultation with patient Rebekah Bobo EMPLOYMENT PROGRAM REPRESENTATIVE.SAGGER MAKER Work Phone: [facility] Start: 03-02-2023 End: 03-03-2023 ambulatory LIZY Manning [facility] Facility:[facility] Start: 02-16-2023 End: 02-16-2023 Patient encounter procedure Roque Delgado MD Work Phone: [facility] Start: 02-16-2023 End: 02-16-2023 ambulatory Roque Delgado MD Work Phone: [facility] Comment on above: Procedure ([place] [facility]al Joint injection - bilateral) Start: 01-15-2023 Telephone encounter Roque Delgado MD Work Phone: [facility] Comment on above: Injection Questions Start: 01-15-2023 End: 01-15-2023 Subsequent hospital visit by physician Tereso [facility] Work Phone: Radiology Comment on above: Primary osteoarthrit is of both shoulders [M19.011, M19.012] Start: 01-15-2023 End: 01-15-2023 Patient encounter procedure Roque Delgado MD Work Phone: [facility] Comment on above: 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); Lumbar spondylosis; Myofascial pain; Rotator cuff impingement syndrome, unspecified laterality Start: 01-15-2023 End: 01-15-2023 ambulatory LIZY CAPONE Facility:[facility] Start: 12-24-2022 Telephone encounter Miryam guzman APRN.CNP Work Phone: [facility] Comment on above: Results (Labs ) Start: 12-22-2022 End: 12-22-2022 Patient encounter procedure Miryam Orozco APRN.SAGGER MAKER Work Phone: [facility] Comment on above: 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); Chronic right-sided low back pain without sciatica; BENIGN HYPERTENSION(aka HTN); Hypothyroidism, acquired; Insomnia, unspecified type; Leg swelling; Decreased glomerular filtration rate (GFR); Chronic knee pain, unspecified laterality; Acute pain of left shoulder Start: 12-04-2022 Refill Roque Delgado MD Work Phone: [facility] Comment on above: Refill Request Start: 10-16-2022 End: 10-16-2022 Patient encounter procedure Roque Delgado MD Work Phone: [facility] Comment on above: Lumbar spondylosis ( Primary Dx); Myofascial pain Start: 10-15-2022 End: 10-15-[address] Lizy Capone Work Phone: [facility] Work Phone: Start: 10-15-2022 End: 10-15-[address] Lizy Capone Work Phone: [facility]-Laboratory, Phy Office 3rd Flr Start: 10-08-2022 Refill Lizy bran MD Work Phone: [facility] [place] Comment on above: Refill Request Start: 10-03-2022 End: 10-03-[address] Lizy Capone Work Phone: [facility] Work Phone: Start: 10-02-2022 End: 10-02-2022 Patient encounter procedure Roque Delgado MD Work Phone: [facility] Comment on above: Lumbar spondylosis ( Primary Dx); Chronic bilateral low back pain without sciatica Start: 08-13-2022 End: 08-13-2022 ambulatory Roque Delgado MD Work Phone: [facility] Comment on above: Procedure Start: 08-13-2022 End: 08-13-2022 Patient encounter procedure Roque Delgado MD Work Phone: [facility] Start: 08-04-2022 Telephone encounter Roque Delgado MD Work Phone: [facility] Comment on above: Results Start: 08-01-2022 End: 08-01-2022 Admission to same day surgery center Dr. Lizy Capone Work Phone: [facility]-Senior Medical Director/Special Procedures Start: 08-01-2022 End: 08-01-[address] Lizy Capone Work Phone: [facility] Work Phone: Start: 07-31-2022 Non-patient / Non-visit Dr. Manjeet Capone Work Phone: [facility] Start: 07-31-2022 End: 07-31-2022 Subsequent hospital visit by physician [facility] Work Phone: Radiology Comment on above: Closed fracture of b ase of fifth metatarsal bone of right foot at metaphyseal-diaphyseal junction, initial encounter [S99.191A] Start: 07-30-2022 End: 07-30-2022 ambulatory Roque Delgado MD Work Phone: [facility] Comment on above: Procedure (SPR) Start: 07-30-2022 End: 07-30-2022 Patient encounter procedure Roque Delgado MD Work Phone: [facility] Start: 07-14-2022 Refill Lizy bran MD Work Phone: [facility] Comment on above: Refill Request (OUT OF MEDICATION) Start: 07-07-2022 Non-patient / Non-visit Dr. Manjeet Capone Work Phone: [facility] Start: 07-02-2022 End: 07-02-2022 Patient encounter procedure Roque Delgado MD Work Phone: [facility] Comment on above: Canceled (Pt cx: Carey ointment Conflict) Start: 06-30-2022 Telephone encounter Mulugeta garrett APRN.SAGGER MAKER Work Phone: [facility] Comment on above: Results Start: 06-30-2022 End: 06-30-2022 Patient encounter procedure Ragini Gomes APRN.SAGGER MAKER Work Phone (unformatted): [phone] [facility] Comment on above: 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); Urge urinary incontinence Start: 06-27-2022 Telephone encounter Mulugeta garrett APRN.SAGGER MAKER Work Phone: [facility] Comment on above: Results Start: 06-27-2022 End: 06-27-[address] Lizy Capone Work Phone: [facility] Start: 06-26-2022 End: 06-26-2022 Patient encounter procedure Miryam Orozco APRN.SAGGER MAKER Work Phone: [facility] Comment on above: Dysuria (Primary Dx) ; Female stress incontinence; Leg swelling; Chronic knee pain, unspecified laterality; Chronic right-sided low back pain without sciatica; Change in stool Start: 06-11-2022 End: 06-11-[address] Lizy Capone Work Phone: [facility] Work Phone: Start: 06-11-2022 End: 06-11-[address] Lizy Capone Work Phone: [facility]-Laboratory Start: 06-04-2022 Telephone encounter Roque Delgado MD Work Phone: [facility] Comment on above: Appointment ([facility] ed for SPR device) Start: 05-30-2022 Telephone encounter Roque Delgado MD Work Phone: [facility] Comment on above: Appointment Start: 05-26-[address] MD Work Phone: [facility] Comment on above: Consult Start: 05-19-2022 Telephone encounter Miryam Beebe nhof EMPLOYMENT PROGRAM REPRESENTATIVE.SAGGER MAKER Work Phone: [facility] Comment on above: Appointment Start: 05-15-2022 Telephone encounter Roque Delgado MD Work Phone: [facility] Comment on above: Injections Start: 05-14-2022 End: 05-14-[address] Lizy Capone Work Phone: [facility] Work Phone: Start: 05-14-2022 End: 05-14-[address] Liz[facility] Cap[facility] Start: 05-13-2022 End: 05-13-2022 Subsequent hospital visit by physician [facility] Work Phone: Radiology Comment on above: Fall, initial encoun ter [W19.XXXA] Start: 05-13-2022 End: 05-13-2022 Patient encounter procedure Jae Cagle MD Work Phone: General Surgery Comment on above: C. difficile colitis (Primary Dx); Rectal bleeding; Change in stool; Fall, initial encounter Start: 05-06-2022 Telephone encounter Noemy Jessica carmina EMPLOYMENT PROGRAM REPRESENTATIVE.SAGGER MAKER Work Phone: [facility] Comment on above: Results Start: 04-30-2022 Telephone encounter Miryam Beebe megan EMPLOYMENT PROGRAM REPRESENTATIVE.SAGGER MAKER Work Phone: [facility] Comment on above: Results Start: 04-29-2022 End: 04-29-2022 Subsequent hospital visit by physician [facility] [employer] [facility] (I-Stat/1.5t) Work Phone: Radiology Comment on above: Lumbar spondylosis [ M47.816] Start: 04-28-2022 Telephone encounter Lizy lucero MD Work Phone: [facility] Comment on above: MRI request Start: 04-17-2022 Refill Lizy bran MD Work Phone: [facility] Comment on above: Refill Request Start: 04-16-2022 Refill Mulugeta ÁLVAREZ RN.SAGGER MAKER Work Phone: [facility] Comment on above: Refill Request Start: 03-19-2022 End: 03-19-[address] Lizy Capone Work Phone: [facility] Work Phone: Start: 03-19-2022 End: 03-19-[address] Lizy Capone Work Phone: [facility]-Laboratory, Phy Office 3rd Flr Start: 03-06-2022 End: 03-06-[address] Lizy Capone Work Phone: [facility]-Laboratory, Specimen Start: 03-06-2022 End: 03-06-[address] Lizy Capone Work Phone: [facility] Start: 03-04-2022 End: 03-04-2022 ambulatory Natalia Perdomo [facility] Comment on above: Population Health Na vigation Outreach (HCC Gaps) Start: 03-04-2022 End: 03-04-[address] Lizy Capone Work Phone: [facility]-Laboratory Start: 02-13-2022 Non-patient / Non-visit Dr. Manjeet Capone Work Phone: [facility] Start: 02-13-2022 Orders Only Roque Delgado MD Work Phone: [facility] Comment on above: Lumbar spondylosis ( Primary Dx) requesting prescript ion Start: 01-30-2022 End: 01-30-2022 Patient encounter procedure Roque Delgado MD Work Phone: [facility] Comment on above: Lumbar spondylosis ( Primary Dx); Myofascial pain Start: 01-30-2022 Telephone encounter Roque Delgado MD Work Phone: [facility] Comment on above: Patient Update (Inje ction questions for lodi) Start: 01-28-2022 End: 01-28-[address] Lizy Capone Work Phone: [facility] Work Phone: Start: 01-28-2022 End: 01-28-[address] Lizy Capone Work Phone: [facility]-Laboratory Start: 01-20-2022 Refill Lizy bran MD Work Phone: [facility] Comment on above: Refill Request Start: 01-14-2022 End: 01-14-[address] Lizy Capone Work Phone: [facility] Start: 01-14-2022 Telephone encounter Rebekah Bobo EMPLOYMENT PROGRAM REPRESENTATIVE.SAGGER MAKER Work Phone: [facility] Comment on above: error Start: 01-08-2022 Telephone encounter Miryam guzman EMPLOYMENT PROGRAM REPRESENTATIVE.SAGGER MAKER Work Phone: [facility] Comment on above: Results (Labs ) Start: 01-08-2022 End: 01-08-2022 Subsequent hospital visit by physician Roque Delgado MD Work Phone: [facility] Comment on above: Lumbar spondylosis [ M47.816] Start: 01-07-2022 Telephone encounter Lizy lucero MD Work Phone: [facility] Comment on above: Faxed Referral Start: 01-06-2022 End: 01-06-2022 ambulatory Allison Lemon PT [facility] Comment on above: Lymphedema (Primary Dx) Start: 01-03-2022 End: 01-03-2022 Subsequent hospital visit by physician [facility] Work Phone: Radiology Comment on above: Abdominal distension [R14.0] Start: 01-02-2022 End: 01-02-2022 Patient encounter procedure Miryam Orozco APRN.SAGGER MAKER Work Phone: [facility] Comment on above: Leg swelling (Primar y Dx); Shortness of breath ; Abdominal distension; Function kidney decreased Start: 01-01-2022 End: 01-01-2022 ambulatory Allison Lemon PT [facility] Comment on above: Lymphedema (Primary Dx) Start: 12-26-2021 End: 12-26-2021 ambulatory Avis Marrufo APRN.SAGGER MAKER Work Phone: [facility] Comment on above: Lumbar spondylosis ( Primary Dx); Myofascial pain; Other chronic pain Start: 12-26-2021 End: 12-26-2021 Telemedicine consultation with patient Avis Marrufo APRN.SAGGER MAKER Work Phone: [facility] Start: 12-26-2021 End: 12-26-[address] Lizy Capone Work Phone: [facility] Work Phone: Start: 12-26-2021 End: 12-26-[address] Lizy Capone Work Phone: [facility] Start: 12-25-2021 End: 12-25-2021 Subsequent hospital visit by physician Roque Delgado MD Work Phone: [facility] Comment on above: Lumbar spondylosis [ M47.816] Start: 12-22-2021 Refill Avis snyder APRN.CNP Work Phone: [facility] Comment on above: Refill Request Start: 12-19-2021 Non-patient / Non-visit Dr. Manjeet Capone Work Phone: [facility] Start: 12-19-2021 End: 12-19-[address] Lizy Capone Work Phone: [facility] Work Phone: Start: 12-19-2021 End: 12-19-[address] Lizy Capone Work Phone: [facility]-Cardiovascul ar Services Start: 12-19-2021 End: 12-19-[address] Lizy Capone Work Phone: [facility] Start: 12-16-2021 End: 12-16-2021 ambulatory Allison Lemon PT [facility] Comment on above: Lymphedema (Primary Dx) Start: 12-11-2021 End: 12-11-2021 ambulatory Allison Lemon PT [facility] Comment on above: Lymphedema (Primary Dx) Start: 12-03-2021 Orders Only Roque Delgado MD Work Phone: [facility] Comment on above: Lumbar spondylosis ( Primary Dx) Start: 12-02-2021 End: 12-02-2021 ambulatory Allison Lemon PT [facility] Comment on above: Lymphedema (Primary Dx) Start: 11-26-2021 Refill Lizy bran MD Work Phone: [facility] Comment on above: Refill Request Start: 11-22-2021 End: 11-22-2021 ambulatory Allison Lemon PT [facility] Comment on above: Lymphedema (Primary Dx); Lumbar spondylosis; Thoracic spine pain; Myofascial pain Start: 11-13-2021 Orders Only Lizy bran MD Work Phone: [facility] Comment on above: Lymphedema (Primary Dx) Start: 11-12-2021 End: 11-12-2021 ambulatory Jerod Flynn PT [facility] Comment on above: Chronic midline low back pain with sciatica, sciatica laterality unspecified (Primary Dx) Start: 11-05-2021 End: 11-05-2021 ambulatory Jerod Flynn PT [facility] Comment on above: Chronic midline low back pain with sciatica, sciatica laterality unspecified (Primary Dx) Start: 10-24-2021 Refill Lizy bran MD Work Phone: [facility] Comment on above: Refill Request Start: 10-22-2021 End: 10-22-2021 ambulatory Jerod Flynn PT [facility] Comment on above: Chronic midline low back pain with sciatica, sciatica laterality unspecified (Primary Dx) Start: 10-21-2021 Orders Only Lizy bran MD Work Phone: [facility] Comment on above: Population Health Na vigation Outreach (HCC) Start: 10-01-2021 Refill Lizy bran MD Work Phone: [facility] Comment on above: Refill Request Start: 09-20-2021 End: 09-20-2021 Subsequent hospital visit by physician Tereso [facility] Joseph Liu Work Phone: Radiology Comment on above: Lumbar spondylosis [ M47.816] Start: 09-19-2021 Telephone encounter Avis aquino APRN.[employer]GER [employer] Work Phone: [facility] Comment on above: Patient Update (Cons ult ) Start: 09-19-2021 End: 09-19-2021 Patient encounter procedure Avis Marrufo APRN.SAGGER MAKER Work Phone: [facility] Comment on above: Lumbar spondylosis ( Primary Dx); Other chronic pain; Thoracic spine pain; Myofascial pain Start: 09-17-2021 End: 09-17-[address] Lizy Capone Work Phone: [facility] Start: 09-12-2021 Refill Lizy bran MD Work Phone: [facility] Comment on above: Refill Request Start: 08-29-2021 Non-patient / Non-visit Dr. Manjeet Capone Work Phone: [facility] Start: 08-29-2021 End: 08-29-[address] Lizy Capone Work Phone: [facility] Start: 08-06-2021 End: 08-06-[address] Lizy Capone Work Phone: [facility] Start: 08-01-2021 Telephone encounter Lizy lucero MD Work Phone: [facility] Comment on above: Results - Ct Start: 07-26-2021 Refill Lizy bran MD Work Phone: [facility] Comment on above: Refill Request Start: 07-25-2021 End: 07-25-2021 Subsequent hospital visit by physician Ct [facility] (I-Stat) Work Phone: Cat Scan Comment on above: Left upper quadrant abdominal pain [R10.12] Start: 07-18-2021 Telephone encounter Lizy lucero MD Work Phone: [facility] Comment on above: Results Start: 07-16-2021 End: 07-16-2021 Subsequent hospital visit by physician [facility] Work Phone: Radiology Comment on above: SOB (shortness of br eath) [R06.02] Start: 07-16-2021 End: 07-16-2021 Patient encounter procedure Lizy Capone MD Work Phone: [facility] Comment on above: BENIGN HYPERTENSION( aka HTN) (Primary Dx); Insomnia, unspecified type; Hypothyroidism, acquired; Bilateral leg edema; Female stress incontinence; Dyspepsia; Upper back pain; Change in bowel function; SOB (shortness of breath); Rib pain on left side Procedures Date Procedure Procedure Detail Performing Clinician Start: 10-19-2024 Blood count smear mcrscp w/mnl difrntl wbc count Miryam Serraf [employer] Work Phone: Start: 10-19-2024 Estimated creatinine clearance Miryam contehof [employer] Work Phone: Start: 10-19-2024 Mean corpuscular hemoglobin concentration determination Miryam Kimballhof [employer] Work Phone: Start: 10-19-2024 Nucleated red blood cell count procedure Miryam Serraf [employer] Work Phone: Start: 10-19-2024 Platelet mean volume determination Parminder Kimballhof [employer] Work Phone: Start: 10-14-2024 Esophagogastroduodenoscopy Miryam Serra f [employer] Work Phone: Start: 10-13-2024 Measurement of occult blood in stool specimen using immunoassay Miryam Orozco [employer] Work Phone: Start: 10-12-2024 Blood count smear mcrscp w/mnl difrntl wbc count Miryam Kimabllhof [employer] Work Phone: Start: 10-12-2024 Estimated creatinine clearance Miryam contehof [employer] Work Phone: Start: 10-12-2024 Mean corpuscular hemoglobin concentration determination Miryam Kimballhof [employer] Work Phone: Start: 10-12-2024 Nucleated red blood cell count procedure Miryam Kimballhof [employer] Work Phone: Start: 10-12-2024 Platelet mean volume determination Parminder Kimballhof [employer] Work Phone: Start: 10-12-2024 Blood count smear mcrscp w/mnl difrntl wbc count Miryam Serraf [employer] Work Phone: Start: 10-12-2024 Estimated creatinine clearance Miryam guerrerof [employer] Work Phone: Start: 10-12-2024 Mean corpuscular hemoglobin concentration determination Miryam Orozco [employer] Work Phone: Start: 10-12-2024 Nucleated red blood cell count procedure Miryam Orozco [employer] Work Phone: Start: 10-12-2024 Platelet mean volume determination Parminder Orozco [employer] Work Phone: Start: 10-06-2024 Urine microscopy: red cells Miryam Tai [employer] Work Phone: Start: 10-06-2024 Urnls dip stick/tablet reagent auto microscopy Miryam Orozco [employer] Work Phone: Start: 10-06-2024 Urine culture Miryam Orozco [employer] Work Phone: Start: 10-04-2024 Estimated creatinine clearance Miryam saravia [employer] Work Phone: Start: 10-03-2024 Blood count smear mcrscp w/mnl difrntl wbc count Miryam Orozco [employer] Work Phone: Start: 10-03-2024 Estimated creatinine clearance Miryam saravia [employer] Work Phone: Start: 10-03-2024 Mean corpuscular hemoglobin concentration determination Miryam Orozco [employer] Work Phone: Start: 10-03-2024 Nucleated red blood cell count procedure Miryam Orozco [employer] Work Phone: Start: 10-03-2024 Platelet mean volume determination Parminder Orozco [employer] Work Phone: Start: 10-02-2024 Serum inorganic phosphate measurement Miryam Orozco [employer] Work Phone: Start: 10-01-2024 Carbon dioxide measurement, partial pressure Miryam Orozco [employer] Work Phone: Start: 10-01-2024 Gases blood o2 saturation only direct farheen Miryam Orozco [employer] Work Phone: Start: 10-01-2024 Measurement of partial pressure of oxygen in blood Miryam Orozco [employer] Work Phone: Start: 10-01-2024 Oxygen measurement Miryam Orozco [employer] Work Phone: Start: 09-30-2024 Urine culture Miryam Orozco [employer] Work Phone: Start: 09-29-2024 Urine culture Miryam Orozco [employer] Work Phone: Start: 09-28-2024 Complete ultrasound of kidneys and bladder Miryam Orozco [employer] Work Phone: Start: 09-28-2024 Urine microscopy: red cells Miryam Driscoll of [employer] Work Phone: Start: 09-28-2024 Urnls dip stick/tablet reagent auto microscopy Miryam Orozco [employer] Work Phone: Start: 09-28-2024 Blood count smear mcrscp w/mnl difrntl wbc count Miryam Orozco [employer] Work Phone: Start: 09-28-2024 Mean corpuscular hemoglobin concentration determination Miryam Orozco [employer] Work Phone: Start: 09-28-2024 Nucleated red blood cell count procedure Miryam Orozco [employer] Work Phone: Start: 09-28-2024 Platelet mean volume determination Parminder Orozco [employer] Work Phone: Start: 09-28-2024 Triacylglycerol lipase measurement Parminder Serraf [employer] Work Phone: Start: 09-28-2024 X-ray of knee, one or two views Miryam brantley [employer] Work Phone: Start: 09-28-2024 CT of head without contrast Miryam Driscoll of [employer] Work Phone: Start: 09-28-2024 X-ray of knee, one or two views Miryam garcíahof [employer] Work Phone: Start: 09-06-2024 Procedure on wound Miryam eSrraf [employer] Work Phone: Start: 08-22-2024 Blood count smear mcrscp w/mnl difrntl wbc count Miryam Kimballhof [employer] Work Phone: Start: 08-22-2024 Mean corpuscular hemoglobin concentration determination Miryam Kimballhof [employer] Work Phone: Start: 08-22-2024 Nucleated red blood cell count procedure Miryam Serraf [employer] Work Phone: Start: 08-22-2024 Platelet mean volume determination Parminder Kimballhof [employer] Work Phone: Start: 08-18-2024 Blood count smear mcrscp w/mnl difrntl wbc count Miryam Kimballhof [employer] Work Phone: Start: 08-18-2024 Mean corpuscular hemoglobin concentration determination Miryam Serraf [employer] Work Phone: Start: 08-18-2024 Nucleated red blood cell count procedure Miryam Serraf [employer] Work Phone: Start: 08-18-2024 Platelet mean volume determination Parminder Serraf [employer] Work Phone: Start: 08-16-2024 Blood count smear mcrscp w/mnl difrntl wbc count Miryam Kimballhof [employer] Work Phone: Start: 08-16-2024 Mean corpuscular hemoglobin concentration determination Miryam Kimballhof [employer] Work Phone: Start: 08-16-2024 Nucleated red blood cell count procedure Miryam Serraf [employer] Work Phone: Start: 08-16-2024 Platelet mean volume determination Parminder Kimballhof [employer] Work Phone: Start: 08-08-2024 Blood count smear mcrscp w/mnl difrntl wbc count Miryam Kimballhof [employer] Work Phone: Start: 08-08-2024 Mean corpuscular hemoglobin concentration determination Miryam Kimballhof [employer] Work Phone: Start: 08-08-2024 Nucleated red blood cell count procedure Miryam Kimballhof [employer] Work Phone: Start: 08-08-2024 Platelet mean volume determination Tatele y Tannhof [employer] Work Phone: Start: 08-01-2024 Blood count smear mcrscp w/mnl difrntl wbc count Miryam Kimballhof [employer] Work Phone: Start: 08-01-2024 Mean corpuscular hemoglobin concentration determination Miyram Kimballhof [employer] Work Phone: Start: 08-01-2024 Nucleated red blood cell count procedure Miryam Kimballhof [employer] Work Phone: Start: 08-01-2024 Platelet mean volume determination Parminder y Tannhof [employer] Work Phone: Start: 07-29-2024 Plain X-ray of tibia and fibula Miryam garcíahof [employer] Work Phone: Start: 07-25-2024 Blood count smear mcrscp w/mnl difrntl wbc count Miryam Kimballhof [employer] Work Phone: Start: 07-25-2024 Mean corpuscular hemoglobin concentration determination Miryam Kimballhof [employer] Work Phone: Start: 07-25-2024 Nucleated red blood cell count procedure Miryam Kimballhof [employer] Work Phone: Start: 07-25-2024 Platelet mean volume determination Tatele y Tannhof [employer] Work Phone: Start: 07-18-2024 Blood count smear mcrscp w/mnl difrntl wbc count Miryam Kimballhof [employer] Work Phone: Start: 07-18-2024 Mean corpuscular hemoglobin concentration determination Miryam Kimballhof [employer] Work Phone: Start: 07-18-2024 Nucleated red blood cell count procedure Miryam Kimballhof [employer] Work Phone: Start: 07-18-2024 Platelet mean volume determination Tatele y Jigarhof [employer] Work Phone: Start: 07-11-2024 Blood count smear mcrscp w/mnl difrntl wbc count Miryam Kimballhof [employer] Work Phone: Start: 07-11-2024 Mean corpuscular hemoglobin concentration determination Miryam Kimballhof [employer] Work Phone: Start: 07-11-2024 Nucleated red blood cell count procedure Miryam Kimballhof [employer] Work Phone: Start: 07-11-2024 Platelet mean volume determination Parminder Kimballhof [employer] Work Phone: Start: 07-04-2024 Blood count smear mcrscp w/mnl difrntl wbc count Miryam Kimballhof [employer] Work Phone: Start: 07-04-2024 Mean corpuscular hemoglobin concentration determination Miryam Kimballhof [employer] Work Phone: Start: 07-04-2024 Nucleated red blood cell count procedure Miryam Kimballhof [employer] Work Phone: Start: 07-04-2024 Platelet mean volume determination Parminder Kimballhof [employer] Work Phone: Start: 06-27-2024 Blood count smear mcrscp w/mnl difrntl wbc count Miryam Kimballhof [employer] Work Phone: Start: 06-27-2024 Mean corpuscular hemoglobin concentration determination Miryam Kimballhof [employer] Work Phone: Start: 06-27-2024 Nucleated red blood cell count procedure Miryam Kimballhof [employer] Work Phone: Start: 06-27-2024 Platelet mean volume determination Parminder Kimballhof [employer] Work Phone: Start: 06-20-2024 Blood count smear mcrscp w/mnl difrntl wbc count Miryampoonam Kimballhof [employer] Work Phone: Start: 06-20-2024 Mean corpuscular hemoglobin concentration determination Miryam Kimballhof [employer] Work Phone: Start: 06-20-2024 Nucleated red blood cell count procedure Miryam Kimballhof [employer] Work Phone: Start: 06-20-2024 Platelet mean volume determination Ashle y Tannhof [employer] Work Phone: Start: 06-13-2024 Blood count smear mcrscp w/mnl difrntl wbc count Miryam Kimballhof [employer] Work Phone: Start: 06-13-2024 Mean corpuscular hemoglobin concentration determination Miryam Kimballhof [employer] Work Phone: Start: 06-13-2024 Nucleated red blood cell count procedure Miryam Kimballhof [employer] Work Phone: Start: 06-13-2024 Platelet mean volume determination Tatele y Tannhof [employer] Work Phone: Start: 06-13-2024 Serum inorganic phosphate measurement Miryam Tannhof [employer] Work Phone: Start: 06-13-2024 Total cholesterol:HDL ratio measurement Miryam Kimballhof [employer] Work Phone: Start: 06-13-2024 Vitamin D, 25-hydroxy measurement Miryam Kimballhof [employer] Work Phone: Start: 06-10-2024 Estimated creatinine clearance Miryam contehof [employer] Work Phone: Start: 06-10-2024 Serum inorganic phosphate measurement Miryam Tannhof [employer] Work Phone: Start: 06-07-2024 Mean corpuscular hemoglobin concentration determination Miryam Kimballhof [employer] Work Phone: Start: 06-07-2024 Platelet mean volume determination Ashle y Tannhof [employer] Work Phone: Start: 06-06-2024 Plain x-ray of wrist Miryam Kimballhof [employer] Work Phone: Start: 05-30-2024 Measurement of renal function Miryam castellonof [employer] Work Phone: Start: 05-27-2024 Blood count smear mcrscp w/mnl difrntl wbc count Miryam Orozco [employer] Work Phone: Start: 05-27-2024 Nucleated red blood cell count procedure Miryam Orozco [employer] Work Phone: Start: 05-23-2024 Videoswallow Miryam Serra [employer] Work Phone: Start: 05-20-2024 Measurement of occult blood in stool specimen using immunoassay Miryam Orozco [employer] Work Phone: Start: 05-19-2024 Human leukocyte antigen B27 antigen phenotyping Miryam Serra [employer] Work Phone: Start: 05-19-2024 Total iron binding capacity measurement Miryam Serra [employer] Work Phone: Start: 05-19-2024 X-ray of thoracic spine, three views Miryam Orozco [employer] Work Phone: Start: 05-18-2024 Glucose measurement, blood Nicol Judge MD Work Phone: Start: 05-18-2024 Glucose measurement, blood Nicol Judge MD Work Phone: Start: 05-18-2024 Glucose measurement, blood Nicol Judge MD Work Phone: Start: 05-18-2024 Assay of magnesium Jono L Infantshan EMPLOYMENT PROGRAM REPRESENTATIVE-[employer]ER Work Phone: Start: 05-17-2024 Glucose measurement, blood Nicol Judge MD Work Phone: Start: 05-17-2024 Glucose measurement, blood Nicol Judge MD Work Phone: Start: 05-17-2024 SPEECH MODIFIED BARIUM SWALLOW Heladio dunaway MD Work Phone: Start: 05-17-2024 Radiologic exam swallow function contrast study Heladio Prather MD Work Phone: Start: 05-17-2024 Glucose measurement, blood Nicol Judge MD Work Phone: Start: 05-17-2024 Assay of magnesium Jono Garrett Infantino EMPLOYMENT PROGRAM REPRESENTATIVE-[employer] Work Phone: Start: 05-17-2024 Glucose measurement, blood Nicol Judge MD Work Phone: Start: 05-16-2024 Glucose measurement, blood Nicol Judge MD Work Phone: Start: 05-16-2024 Glucose measurement, blood Nicol Judge MD Work Phone: Start: 05-16-2024 Glucose measurement, blood Nicol Judge MD Work Phone: Start: 05-16-2024 Assay of magnesium Jono Garrett Infantino EMPLOYMENT PROGRAM REPRESENTATIVE-[employer] Work Phone: Start: 05-15-2024 Glucose measurement, blood Nicol Judge MD Work Phone: Start: 05-15-2024 Glucose measurement, blood Kevon crawford MD Work Phone: Start: 05-15-2024 Infectious agent dna/rna influenza 1st 2 types Heladio Prather MD Work Phone: Start: 05-15-2024 Sars-cov-2 detection by dna/rna Heladio dick MD Work Phone: Start: 05-15-2024 Glucose measurement, blood Kevon Lolly crawford MD Work Phone: Start: 05-15-2024 Assay of magnesium Jono Garrett Infantino EMPLOYMENT PROGRAM REPRESENTATIVE-[employer] Work Phone: Start: 05-15-2024 Glucose measurement, blood Kevon crawford MD Work Phone: Start: 05-14-2024 Glucose measurement, blood Kevon crawford MD Work Phone: Start: 05-14-2024 Glucose measurement, blood Kevon Lolly crawford MD Work Phone: Start: 05-14-2024 Assay of magnesium Jono Garrett Infantino EMPLOYMENT PROGRAM REPRESENTATIVE-[employer] Work Phone: Start: 05-13-2024 Glucose measurement, blood Kevon Lolly crawford MD Work Phone: Start: 05-13-2024 Glucose measurement, blood Kevon Lolly crawford MD Work Phone: Start: 05-13-2024 FLEXIBLE ENDOSCOPIC EVALUATION OF SWALLOWING Jamaal Khalil MD Work Phone: Start: 05-13-2024 Glucose measurement, blood Kevon Lolly crawford MD Work Phone: Start: 05-13-2024 Glucose measurement, blood Kevon Lolly crawford MD Work Phone: Start: 05-13-2024 Assay of magnesium Jono Garrett Infantino EMPLOYMENT PROGRAM REPRESENTATIVE-[employer] Work Phone: Start: 05-13-2024 Glucose measurement, blood Kevon Lolly crawford MD Work Phone: Start: 05-12-2024 Glucose measurement, blood Kevon Lolly crawford MD Work Phone: Start: 05-12-2024 Glucose measurement, blood Kevon Lolly crawford MD Work Phone: Start: 05-12-2024 CARDIAC RHYTHM (SCANNED) Other Other OT Start: 05-12-2024 CONTINUOUS CARDIAC MONITORING STRIP Other Other Start: 05-12-2024 Glucose measurement, blood Kevon Lolly crawford MD Work Phone: Start: 05-12-2024 Assay of magnesium Vy Curry MD Work Phone: Start: 05-12-2024 Lipid panel Heladio Prather MD Work Phone: Start: 05-11-2024 Glucose measurement, blood Kevon Lolly crawford MD Work Phone: Start: 05-11-2024 Echo tthrc r-t 2d w/wom-mode compl spec&colr d Jamaal Khalil MD Work Phone: Start: 05-11-2024 Glucose measurement, blood Kevon W Aba crawford MD Work Phone: Start: 05-11-2024 Glucose measurement, blood Kevon Ambrocio Aba crawford MD Work Phone: Start: 05-11-2024 Assay of folic acid serum Vy arrieta MD Work Phone: Start: 05-10-2024 CONTINUOUS CARDIAC MONITORING STRIP Other Other Start: 05-10-2024 Blood count complete automated Pratik Angel Ennis EMPLOYMENT PROGRAM REPRESENTATIVE-[employer] Work Phone: Start: 05-10-2024 Glucose measurement, blood Ronn lane MD Work Phone: Start: 05-09-2024 Assay of ferritin Vy Crury MD Work Phone: Start: 05-09-2024 Glucose measurement, blood Ronn lane MD Work Phone: Start: 05-09-2024 Dup-scan xtr veins unilateral/limited study Oralia Mary EMPLOYMENT PROGRAM REPRESENTATIVE-[employer] Work Phone: Start: 05-09-2024 GENERAL PROCEDURE Clare Adhikari MD Work Phone: Start: 05-09-2024 Culture bacterial blood aerobic w/id isolates Karrie Sims EMPLOYMENT PROGRAM REPRESENTATIVE-[employer] Work Phone: Start: 05-09-2024 Glucose measurement, blood Ronn lane MD Work Phone: Start: 05-09-2024 Blood gases any combination ph pco2 po2 co2 hco3 Karrie Sims EMPLOYMENT PROGRAM REPRESENTATIVE-[employer] Work Phone: Start: 05-09-2024 End: 05-09-2024 Assay of magnesium Jono Bhardwaj EMPLOYMENT PROGRAM REPRESENTATIVE-[employer] Work Phone: Start: 05-09-2024 Mri spinal canal cervical w/o & w/contr matrl Nelida Brock MD Work Phone: Start: 05-08-2024 Glucose measurement, blood Pratik barron MD Work Phone: Start: 05-08-2024 Glucose measurement, blood Pratik barron MD Work Phone: Start: 05-08-2024 Inf agent det nucleic acid clostridium amp probe Karrie Sims EMPLOYMENT PROGRAM REPRESENTATIVE-[employer] Work Phone: Start: 05-08-2024 EXTRA MICRO Qijaswant Sims EMPLOYMENT PROGRAM REPRESENTATIVE-[employer] Work Phone: Start: 05-08-2024 URINALYSIS REFLEX TO CULTURE Qijaswant Sims A PRN-[employer]KER Work Phone: Start: 05-08-2024 Urnls dip stick/tablet reagent auto microscopy Qijaswant Sims EMPLOYMENT PROGRAM REPRESENTATIVE-[employer] Work Phone: Start: 05-08-2024 Retired procedure Pratik Young MD Work Phone: Start: 05-08-2024 Blood gases any combination ph pco2 po2 co2 hco3 Qijaswant Sims EMPLOYMENT PROGRAM REPRESENTATIVE-[employer] Work Phone: Start: 05-08-2024 Potassium serum plasma/whole blood Milton Ennis EMPLOYMENT PROGRAM REPRESENTATIVE-[employer]ER Work Phone: Start: 05-08-2024 Glucose measurement, blood Pratik barron MD Work Phone: Start: 05-08-2024 Radiologic exam chest single view Karrie Sims EMPLOYMENT PROGRAM REPRESENTATIVE-[employer] Work Phone: Start: 05-08-2024 Smr prim src gram/giemsa stain bct fungi/cell Qijaswant Sims EMPLOYMENT PROGRAM REPRESENTATIVE-[employer] Work Phone: Start: 05-08-2024 Glucose measurement, blood Pratik barron MD Work Phone: Start: 05-08-2024 Assay of phosphorus inorganic Pratik Ennis EMPLOYMENT PROGRAM REPRESENTATIVE-[employer] Work Phone: Start: 05-08-2024 Ecg routine ecg w/least 12 lds trcg only w/o i&r Pratik Ennis EMPLOYMENT PROGRAM REPRESENTATIVE-[employer]ER Work Phone: Start: 05-08-2024 Assay of magnesium Jono Bhardwaj EMPLOYMENT PROGRAM REPRESENTATIVE-[employer]ER Work Phone: Start: 05-08-2024 Glucose measurement, blood Pratik barron MD Work Phone: Start: 05-07-2024 Assay of phosphorus inorganic Jono Bhardwaj EMPLOYMENT PROGRAM REPRESENTATIVE-[employer] Work Phone: Start: 05-07-2024 Glucose measurement, blood Pratik barron MD Work Phone: Start: 05-07-2024 Assay of magnesium Karrie Sims EMPLOYMENT PROGRAM REPRESENTATIVE-[employer] Work Phone: Start: 05-07-2024 Glucose measurement, blood Pratik barron MD Work Phone: Start: 05-07-2024 Blood count hematocrit Karrie Sims EMPLOYMENT PROGRAM REPRESENTATIVE-CN P Work Phone: Start: 05-07-2024 CONTINUOUS CARDIAC MONITORING STRIP Other Other Start: 05-07-2024 Radiologic exam chest single view Karrie Sims EMPLOYMENT PROGRAM REPRESENTATIVE-[employer] Work Phone: Start: 05-07-2024 End: 05-07-2024 Transfusion of packed red blood cells Karrie Sims EMPLOYMENT PROGRAM REPRESENTATIVE-[employer] Work Phone: Start: 05-07-2024 Blood count complete automated Karrie Sims EMPLOYMENT PROGRAM REPRESENTATIVE-[employer] Work Phone: Start: 05-07-2024 Glucose measurement, blood Pratik barron MD Work Phone: Start: 05-07-2024 End: 05-07-2024 Creatine kinase total Harish Parry MD Work Phone: Start: 05-07-2024 SCHISTOCYTES Harish Parry MD Work Phone: Start: 05-07-2024 Radiologic exam abdomen 1 view Harish sapp MD Work Phone: Start: 05-07-2024 Glucose measurement, blood Pratik barron MD Work Phone: Start: 05-07-2024 Ecg routine ecg w/least 12 lds trcg only w/o i&r Pratik Angel Yessy EMPLOYMENT PROGRAM REPRESENTATIVE-[employer] Work Phone: Start: 05-07-2024 End: 05-07-2024 Transfusion of packed red blood cells Harish Parry MD Work Phone: Start: 05-07-2024 Blood count complete automated Jono Bhardwaj EMPLOYMENT PROGRAM REPRESENTATIVE-[employer] Work Phone: Start: 05-07-2024 Glucose measurement, blood Pratik barron MD Work Phone: Start: 05-06-2024 Mri brain brain stem w/o w/contrast material Danielle OCHOA Work Phone: Start: 05-06-2024 Ecg routine ecg w/least 12 lds trcg only w/o i&r Pratik Ennis EMPLOYMENT PROGRAM REPRESENTATIVE-[employer] Work Phone: Start: 05-06-2024 Heparin assay Karrie Sims EMPLOYMENT PROGRAM REPRESENTATIVE-[employer] Work Phone: Start: 05-06-2024 Glucose measurement, blood Pratik barron MD Work Phone: Start: 05-06-2024 Radiologic examination pelvis 1/2 views Danielle HODGSON Work Phone: Start: 05-06-2024 Creatinine blood Bretthi Sims EMPLOYMENT PROGRAM REPRESENTATIVE-SAGGER MAKER Work Phone: Start: 05-06-2024 Glucose measurement, blood Pratik barron MD Work Phone: Start: 05-06-2024 Eeg extended monitoring 61-119 minutes Paulino Whitehead MD Work Phone: Start: 05-06-2024 Fibrinogen activity Qizhi Sims EMPLOYMENT PROGRAM REPRESENTATIVE-SAGGER MAKER Work Phone: Start: 05-06-2024 Glucose measurement, blood Pratik barron MD Work Phone: Start: 05-06-2024 EXTRA LAVENDER TOP Pratik Young MD Work Phone: Start: 05-06-2024 EXTRA TUBES Pratik Young MD Work Phone: Start: 05-06-2024 End: 05-06-2024 Assay of magnesium Pratik Ortiz Ennis EMPLOYMENT PROGRAM REPRESENTATIVE-SAGGER MAKER Work Phone: Start: 05-05-2024 Glucose measurement, blood Pratik barron MD Work Phone: Start: 05-05-2024 Hemodialysis Josefina Cary MD Work Phone: Start: 05-05-2024 PROCEDURE - LUMBAR PUNCTURE Oralia Aguayo Osmin boss EMPLOYMENT PROGRAM REPRESENTATIVE-SAGGER MAKER Work Phone: Start: 05-05-2024 Glucose measurement, blood Pratik barron MD Work Phone: Start: 05-05-2024 Radiologic exam chest single view Ping Mary EMPLOYMENT PROGRAM REPRESENTATIVE-SAGGER MAKER Work Phone: Start: 05-05-2024 End: 05-05-2024 Cell count misc body fluids w/differential count Oralia Mary EMPLOYMENT PROGRAM REPRESENTATIVE-SAGGER MAKER Work Phone: Start: 05-05-2024 Cytp concentration smears & interpretation Oralia Mary EMPLOYMENT PROGRAM REPRESENTATIVE-SAGGER MAKER Work Phone: Start: 05-05-2024 Concentration infectious agents Oralia Mary EMPLOYMENT PROGRAM REPRESENTATIVE-SAGGER MAKER Work Phone: Start: 05-05-2024 Glucose body fluid other than blood Oralia Mary EMPLOYMENT PROGRAM REPRESENTATIVE-SAGGER MAKER Work Phone: Start: 05-05-2024 Calcium ionized Oralia Mary EMPLOYMENT PROGRAM REPRESENTATIVE-SAGGER MAKER Work Phone: Start: 05-05-2024 CHRONIC HEPATITIS PANEL(DIALYSIS, ESRD, JOSE) Josefina Cary MD Work Phone: Start: 05-05-2024 Hepatitis b surf antibody hbsab Josefina Cary MD Work Phone: Start: 05-05-2024 End: 05-05-2024 Iaad ia hepatitis b surface antigen Josefina Cary MD Work Phone: Start: 05-05-2024 Glucose measurement, blood Pratik barron MD Work Phone: Start: 05-05-2024 RT COMMUNICATION ORDER Oralia alejandra EMPLOYMENT PROGRAM REPRESENTATIVE-SAGGER MAKER Work Phone: Start: 05-05-2024 End: 05-05-2024 Smr prim src gram/giemsa stain bct fungi/cell Oralia Mary EMPLOYMENT PROGRAM REPRESENTATIVE-SAGGER MAKER Work Phone: Start: 05-05-2024 Calcium ionized Oralia Mary EMPLOYMENT PROGRAM REPRESENTATIVE-SAGGER MAKER Work Phone: Start: 05-05-2024 Blood gases any combination ph pco2 po2 co2 hco3 Kindra Gannon MD Work Phone: Start: 05-05-2024 Ecg routine ecg w/least 12 lds trcg only w/o i&r Pratik Ennis EMPLOYMENT PROGRAM REPRESENTATIVE-SAGGER MAKER Work Phone: Start: 05-05-2024 Ct head/brain w/o contrast material Paulino Whitehead MD Work Phone: Start: 05-05-2024 Creatine kinase total Paulino Whitehead MD Work Phone: Start: 05-05-2024 Drug screen quantitative vancomycin Jennifer Cloud [facility] Start: 05-05-2024 Radiologic exam abdomen 1 view Paulino palacios MD Work Phone: Start: 05-04-2024 ABORH TYPE RECONFIRMATION Shereen Nails DO Work Phone: Start: 01-29-2025 Culture bct isol&prsmptv id isolate ea urine Paulino Whitehead MD Work Phone: Start: 05-04-2024 EXTRA MICRO Paulino Whitehead MD Work Phone: Start: 05-04-2024 URINALYSIS REFLEX TO CULTURE Paulino barbosa MD Work Phone: Start: 05-04-2024 Radiologic exam chest single view Arik Ennis EMPLOYMENT PROGRAM REPRESENTATIVE-SAGGER MAKER Work Phone: Start: 05-04-2024 Radiologic exam abdomen 1 view Pratik Ennis EMPLOYMENT PROGRAM REPRESENTATIVE-SAGGER MAKER Work Phone: Start: 05-04-2024 Antibody screen NICOL JUDGE Comment on above: Performed By: #### MGO, CHM7, IPB, CKB, TRIG, LDO #### [facility] (DEFAULT) [address] [place] [address] Start: 05-04-2024 Assay of ammonia Pratik Ennis EMPLOYMENT PROGRAM REPRESENTATIVE-SAGGER MAKER Work Phone: Start: 05-04-2024 Blood gases any combination ph pco2 po2 co2 hco3 Pratik Ennis EMPLOYMENT PROGRAM REPRESENTATIVE-SAGGER MAKER Work Phone: Start: 05-04-2024 RAPHAEL AURIS SCREEN BY PCR Pratik chan EMPLOYMENT PROGRAM REPRESENTATIVE-SAGGER MAKER Work Phone: Start: 05-04-2024 CBC AND ELECTRONIC DIFF Pratik Ennis EMPLOYMENT PROGRAM REPRESENTATIVE-SAGGER MAKER Work Phone: Start: 05-04-2024 Complete blood count with white cell differential, automated Pratik Ennis EMPLOYMENT PROGRAM REPRESENTATIVE-SAGGER MAKER Work Phone: Start: 05-04-2024 Hepatic function panel Pratik Ennis EMPLOYMENT PROGRAM REPRESENTATIVE-SAGGER MAKER Work Phone: Start: 05-04-2024 Iadna respiratry probe & rev trnscr 3-5 targets Pratik Ennis EMPLOYMENT PROGRAM REPRESENTATIVE-SAGGER MAKER Work Phone: Start: 05-04-2024 MANUAL DIFF Pratik Ennis EMPLOYMENT PROGRAM REPRESENTATIVE-SAGGER MAKER Work Phone: Start: 05-04-2024 PREPARE TO TRANSFUSE RED BLOOD CELLS Harish Parry MD Work Phone: Start: 05-04-2024 Glucose measurement, blood Pratik Angel barron MD Work Phone: Start: 05-03-2024 Complete ultrasound of kidneys and bladder Miryam Orozco COOKER MECHANIC-C Work Phone: Start: 05-02-2024 CT of head without contrast Miryam Driscoll COOKER MECHANIC-C Work Phone: Start: 05-02-2024 Plain chest X-ray Miryam Orozco COOKER MECHANIC-C Work Phone: Start: 05-01-2024 Blood culture Miryam Orozco COOKER MECHANIC-C Work Phone: Start: 05-01-2024 Clostridium difficile detection Miryam brantley [employer]OOKER MECHANIC-C Work Phone: Start: 05-01-2024 Gram stain microscopy Miryam Serra COOKER MECHANIC- C Work Phone: Start: 05-01-2024 Legionella pneumophila antigen assay Miryam Serra COOKER MECHANIC-C Work Phone: Start: 05-01-2024 Nucleic acid assay Miryam Orozco COOKER MECHANIC-C Work Phone: Start: 05-01-2024 Respiratory microbial culture Miryam castellon [employer]OOKER MECHANIC-C Work Phone: Start: 05-01-2024 Streptococcus pneumoniae antigen assay Miryam Serra COOKER MECH[employer]IC-C Work Phone: Start: 05-01-2024 Urine culture Miryam Serra COOKER MECHANIC-C Work Phone: Start: 05-01-2024 Miryam Serra COOKER MECHANIC-C Work Phone: Start: 05-01-2024 End: 05-01-2024 Plain chest X-ray Miryam Orozco COOKER MECHANIC-C Work Phone: Start: 01-28-2024 [employer]Dove COVID-19 VACCINE AGE 12+ YR (COMIRNATY) Miryam Orozco APRN.SAGGER MAKER Work Phone: Start: 07-22-2023 Adult depression screening assessment Roque Delgado MD Work Phone: Start: 06-07-2023 CT of abdomen and pelvis with oral contrast Start: 05-18-2023 US OTHER-INJECTION (POC) DONATO USE ONLY Roque Delgado MD Work Phone: Start: 03-31-2023 Radiologic exam chest 2 views Piedad R Ath y PA-C Work Phone: Start: 01-15-2023 End: 01-15-2023 Radex shoulder complete minimum 2 views Roque Delgado MD Work Phone: Start: 07-31-2022 Radex foot complete minimum 3 views Roque Delgado MD Work Phone: Start: 07-25-2022 Plain chest X-ray Dr. Lizy Capone Work Phone: Start: 05-13-2022 Radex elbow complete minimum 3 views Jae Cagle MD Work Phone: Start: 04-29-2022 Mri spinal canal thoracic w/o contrast matrl Avis Marrufo APRN.SAGGER MAKER Work Phone: Start: 01-08-2022 End: 01-08-2022 Njx dx/ther agt pvrt facet jt lmbr/sac 1 level Roque Delgado MD Work Phone: Start: 01-03-2022 Us abdominal real time w/image documentation Miryam Orozco APRN.SAGGER MAKER Work Phone: Start: 12-25-2021 End: 12-25-2021 Njx dx/ther agt pvrt facet jt lmbr/sac 1 level Roque Delgado MD Work Phone: Start: 09-20-2021 Radex spine lumbosacral minimum 4 views Avis Marrufo APRN.SAGGER MAKER Work Phone: Start: 09-19-2021 Adult depression screening assessment Avis Marrufo APRN.SAGGER MAKER Work Phone: Start: 07-25-2021 Ct abdomen & pelvis w/o contrast material Lizy Capone MD Work Phone: Start: 07-16-2021 Radex ribs uni w/posteroant ch minimum 3 views Lizy Capone MD Work Phone: Start: 11-25-2018 Adult depression screening assessment Lizy Capone MD Work Phone: Bacteria identified in Urine by Culture Dr. Lizy Capone Work Phone: H/O: surgery Miryam Russell [employer]OOKER MECHANIC-C Work Phone: H/O: surgery Dr. Gonzalo eastman MD H/O: surgery Dr. Gonzalo eastman MD H/O: surgery Dr. Gonzalo eastman MD Urine culture Dr. Lizy white Work Phone: Urine culture Dr. Lizy white Work Phone: Urine culture Dr. Lizy white Work Phone: Plan of Treatment Date Care Activity Detail Author Start: 09-16-2027 Diabetes Screening Diabetes Screening [facility] Start: 09-01-2027 Tetanus vaccination [facility] Start: 09-01-2027 Urine microalbumin profile [facility] Start: 08-23-2027 Diabetes Screening Diabetes Screening [facility] Start: 05-17-2027 Diabetes Screening Diabetes Screening [facility] Start: 12-13-2026 Diabetes Screening Diabetes Screening [facility] Start: 07-15-2026 Diabetes Screening Diabetes Screening [facility] Start: 01-15-2026 Diabetes Screening Diabetes Screening [facility] Start: 12-22-2025 Diabetes Screening Diabetes Screening [facility] Start: 09-26-2025 DIABETES SCREEN DIABETES SCREEN [facility] Start: 09-26-2025 Diabetes Screening Diabetes Screening [facility] Start: 05-17-2025 Finding of potassium level (finding) [facility] Start: 05-05-2025 Thyroid stimulating hormone measurement [facility] Start: 01-06-2025 DIABETES SCREEN DIABETES SCREEN [facility] Start: 12-05-2024 Influenza vaccination Influenza Vaccine (#1) [facility] Start: 11-25-2024 End: 11-25-2024 Patient encounter procedure 11/25/2024 2:20 PM EDT Office Visit [facility] [address] [place] [address] Lizy Capone MD [address] [place] [address] 1 month follow up [facility] Comment on above: 1 month follow up Start: 10-26-2024 End: 10-26-2024 [facility] Start: 10-24-2024 End: 10-24-2024 Patient encounter procedure [facility] Comment on above: 1 month follow up TCM [facility] F/U Start: 10-22-2024 End: 01-21-2025 CBC panel - Blood by Automated count COMPLETE BLOOD COUNT Lab Routine BENIGN HYPERTENSION(aka HTN) Anemia in chronic kidney disease, unspecified CKD stage CKD (chronic kidney disease) stage 4, GFR 15-29 ml/min (HCC) Expected: 10/22/2024 (Approximate), Expires: 01/21/2025 [facility] Comment on above: Expected: 10/22/2024 (Approximate), Expi res: 01/21/2025 Start: 10-22-2024 End: 01-21-2025 Comprehensive metabolic 2000 panel - Serum or Plasma COMPREHENSIVE METABOLIC PANEL Lab Routine BENIGN HYPERTENSION(aka HTN) CKD (chronic kidney disease) stage 4, GFR 15-29 ml/min (HCC) Expected: 10/22/2024 (Approximate), Expires: 01/21/2025 [facility] Work Phone: Comment on above: Expected: 10/22/2024 (Approximate), Expi res: 01/21/2025 Start: 10-20-2024 Patient discharge [facility] Start: 10-19-2024 Development of care plan [facility] Start: 10-19-2024 Developing a treatment plan [facility] Start: 10-17-2024 Referral to service [facility] Start: 10-17-2024 Patient discharge [facility] Start: 10-17-2024 [facility] Start: 10-14-2024 Unlisted procedure small intestine [facility] Start: 10-13-2024 [facility] Start: 10-12-2024 Measurement of occult blood in stool specimen using immunoassay [facility] Start: 10-11-2024 Referral to miter sawyer [facility] Start: 10-11-2024 Application of elastic bandage [facility] Start: 10-11-2024 Consultation for treatment [facility] Start: 10-11-2024 [facility] Start: 10-10-2024 [facility] Start: 10-10-2024 Elevation of affected extremity [facility] Start: 10-08-2024 Seizure precautions [facility] Start: 10-06-2024 Speech therapy management [facility] Start: 10-06-2024 Verification routine [facility] Start: 10-05-2024 [facility] Start: 10-05-2024 Development of care plan [facility] Start: 10-05-2024 Speech therapy assessment [facility] Start: 10-05-2024 Developing a treatment plan [facility] Start: 10-04-2024 End: 10-05-2024 Patient referral to dietitian [facility] Start: 10-04-2024 Following clinical pathway protocol [facility] Start: 10-04-2024 Wound care [facility] Start: 10-04-2024 Admission procedure [facility] Start: 10-04-2024 Introduction of urinary catheter [facility] Start: 10-04-2024 Measuring intake and output [facility] Start: 10-04-2024 Referral to occupational therapist [facility] Start: 10-04-2024 Referral to service [facility] Start: 10-04-2024 Vital signs measurements [facility] Start: 10-04-2024 [facility] Start: 10-04-2024 Patient discharge [facility] Start: 10-03-2024 Consultation for treatment [facility] Start: 10-03-2024 [facility] Start: 10-02-2024 [facility] Start: 10-01-2024 [facility] Start: 09-29-2024 Application of intermittent pneumatic compression device [facility] Start: 09-29-2024 [facility] Start: 09-28-2024 Following clinical pathway protocol [facility] Start: 09-28-2024 Assessment of risk of venous thromboembolism [facility] Start: 09-28-2024 Fall prevention [facility] Start: 09-28-2024 Inhalation therapy procedure [facility] Start: 09-28-2024 Insertion of catheter into peripheral vein [facility] Start: 09-28-2024 Introduction of urinary catheter [facility] Start: 09-28-2024 Measuring intake and output [facility] Start: 09-28-2024 Providing care according to standard [facility] Start: 09-28-2024 Provision of activity privileges [facility] Start: 09-28-2024 Referral to miter sawyer [facility] Start: 09-28-2024 Referral to occupational therapist [facility] Start: 09-28-2024 Referral to service [facility] Start: 09-28-2024 Wound care [facility] Start: 09-28-2024 [facility] Start: 09-28-2024 Verification routine [facility] Start: 09-28-2024 Admission procedure [facility] Start: 09-28-2024 Hospital admission, emergency, from emergency room, medical nature [facility] Start: 09-28-2024 [facility] Start: 09-28-2024 [facility] Start: 09-28-2024 End: 09-28-2024 [facility] Start: 09-28-2024 Patient referral to dietitian [facility] Start: 09-28-2024 [facility] Start: 09-22-2024 End: 09-22-2024 Patient encounter procedure 09/22/2024 2:20 PM EDT Office Visit [facility] [address] [place] [address] Lizy Capone MD [address] [place] [address] 1 mo f/u [facility] Comment on above: 1 mo f/u Start: 09-15-2024 End: 12-15-2024 Natriuretic peptide.B prohormone N-Terminal [Mass/volume] in Serum or Plasma [facility] Work Phone: Comment on above: Expected: 09/15/2024, Expires: Start: 09-06-2024 Patient discharge [facility] Start: 08-22-2024 End: 08-22-2024 Patient encounter procedure 08/22/2024 1:20 PM EDT Office Visit [facility] [address] [facility] [place] [address] Lizy Capone MD [address] [place] [address] 6 month follow up [facility] Comment on above: 6 month follow up Start: 08-05-2024 End: 08-05-2024 Patient encounter procedure 08/05/2024 10:00 AM EDT Office Visit [facility] [address] [facility] [place] [address] Miryam Orozco APRN.SAGGER MAKER [address] [place] [address] 6 month follow up [facility] Comment on above: 6 month follow up Start: 07-29-2024 [facility] Start: 07-28-2024 End: 10-27-2024 Comprehensive metabolic 2000 panel - Serum or Plasma COMPREHENSIVE METABOLIC PANEL Lab Routine BENIGN HYPERTENSION(aka HTN) Expected: 07/28/2024, Expires: 10/27/2024 [facility] Work Phone: Comment on above: Expected: 07/28/2024, Expires: Start: 07-28-2024 Covid-19 Vaccine ( season) Covid-19 Vaccine () [facility] Start: 07-28-2024 End: 10-27-2024 Lipid 1996 panel - Serum or Plasma LIPID PANEL BASIC Lab Routine Hyperlipidemia LDL goal <100 Expected: 07/28/2024, Expires: 10/27/2024 [facility] Comment on above: Expected: 07/28/2024, Expires: Start: 07-28-2024 End: 10-27-2024 Thyrotropin [Units/volume] in Serum or Plasma THYROID STIMULATING HORMONE Lab Routine Hypothyroidism, acquired Expected: 07/28/2024, Expires: 10/27/2024 [facility] Comment on above: Expected: 07/28/2024, Expires: Start: 07-28-2024 End: 10-27-2024 Thyroxine (T4) free [Mass/volume] in Serum or Plasma T4 FREE/FREE THYROXINE Lab Routine Hypothyroidism, acquired Expected: 07/28/2024, Expires: 10/27/2024 [facility] Comment on above: Expected: 07/28/2024, Expires: Start: 07-21-2024 Anxiety Screening Anxiety Screening [facility] Start: 07-21-2024 Covid-19 Vaccine () Covid-19 Vaccine () [facility] Comment on above: Postponed from 12/05/2022 (Declined at t his time) Start: 07-21-2024 Depression Screening Depression Screening [facility] Start: 07-21-2024 Shingrix Vaccine (2 of 3) Shingrix Vaccine (2 of 3) [facility] Comment on above: Postponed from 07/12/2009 (Declined at t his time) Start: 07-16-2024 DIABETES SCREEN DIABETES SCREEN [facility] Start: 06-10-2024 Patient discharge [facility] Start: 06-10-2024 Referral to miter sawyer [facility] Start: 06-09-2024 Catheterization of vein [facility] Start: 06-08-2024 Application of elastic bandage [facility] Start: 06-08-2024 [facility] Start: 06-06-2024 Application of ice collar, cap or bag [facility] Start: 05-27-2024 [facility] Start: 05-20-2024 Following clinical pathway protocol [facility] Start: 05-20-2024 Administration of blood product [facility] Start: 05-20-2024 Administration of blood product [facility] Start: 05-18-2024 Seizure precautions [facility] Start: 05-18-2024 Admission procedure [facility] Start: 05-18-2024 Measuring intake and output [facility] Start: 05-18-2024 Patient referral to dietitian [facility] Start: 05-18-2024 Referral to service [facility] Start: 05-18-2024 Vital signs measurements [facility] Start: 05-18-2024 [facility] Start: 05-18-2024 Referral to occupational therapist [facility] Start: 05-18-2024 Speech therapy assessment [facility] Start: 05-08-2024 Complete blood count Hemoglobin/Hematocrit [facility] Start: 05-08-2024 Creatinine measurement Serum Creatinine [facility] Start: 05-04-2024 Patient discharge [facility] Start: 05-04-2024 Care of hemodialysis equipment [facility] Start: 05-04-2024 Hemodialysis care [facility] Start: 05-04-2024 [facility] Start: 05-04-2024 [facility] Start: 05-04-2024 Administration of blood product [facility] Start: 05-03-2024 End: 05-04-2024 [facility] Start: 05-02-2024 [facility] Start: 05-01-2024 Following clinical pathway protocol [facility] Start: 05-01-2024 Assessment of risk of venous thromboembolism [facility] Start: 05-01-2024 Catheterization of vein [facility] Start: 05-01-2024 Consultation [facility] Start: 05-01-2024 Continuous pulse oximetry [facility] Start: 05-01-2024 Inhalation therapy procedure [facility] Start: 05-01-2024 Insertion of catheter into peripheral vein [facility] Start: 05-01-2024 Measuring intake and output [facility] Start: 05-01-2024 Notification of physician [facility] Start: 05-01-2024 Providing care according to standard [facility] Start: 05-01-2024 Referral to miter sawyer [facility] Start: 05-01-2024 Referral to occupational therapist [facility] Start: 05-01-2024 Referral to service [facility] Start: 05-01-2024 Vital signs measurements [facility] Start: 05-01-2024 End: 05-01-2024 [facility] Start: 05-01-2024 Airway suction technique [facility] Start: 05-01-2024 Admission procedure [facility] Start: 05-01-2024 Patient referral to dietitian [facility] Start: 05-01-2024 [facility] Start: 04-15-2024 Annual PCP Team Chronic Disease Visit Annual PCP Team Chronic Disease Visit [facility] Start: 04-06-2024 Advance Directive Discussion Advance Directive Discussion [facility] Start: 03-24-2024 End: 03-24-2024 Patient encounter procedure 03/24/2024 8:45 AM EST Office Visit [facility] [address] [place] [address] Weston Lowe APRN.SAGGER MAKER [address] [place] [address] 3 month refill [facility] Comment on above: 3 month refill Start: 03-16-2024 End: 03-16-2024 Patient encounter procedure 03/16/2024 11:20 AM EST Office Visit [facility] [address] [facility] [place] [address] Miryam Orozco APRN.SAGGER MAKER [address] [facility] [place] [address] Hosp Follow up/ discharge 03/02/24 Family [facility] Comment on above: Hosp Follow up/ discharge 03/02/24 Start: 02-11-2024 End: 02-11-2024 Patient encounter procedure 02/11/2024 9:20 AM EST Office Visit [facility] [address] [facility] [place] [address] Miryam Orozco APRN.SAGGER MAKER [address] [place] [address] 3 month follow up [facility] Comment on above: 3 month follow up Start: 02-01-2024 End: 02-01-2024 Patient encounter procedure 02/01/2024 8:45 AM EDT Office Visit [facility] [address] [place] [address] Grzegorz Becerril MD [address] [place] [address] 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, M19.012] Orthopaedics Comment on above: 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, M19.012] Start: 01-30-2024 End: 04-30-2024 Thyrotropin [Units/volume] in Serum or Plasma THYROID STIMULATING HORMONE Lab Routine Hypothyroidism, acquired Expected: 01/30/2024, Expires: 04/30/2024 [facility] Work Phone: Comment on above: Expected: 01/30/2024, Expires: Start: 01-30-2024 End: 04-30-2024 Thyroxine (T4) free [Mass/volume] in Serum or Plasma T4 FREE/FREE THYROXINE Lab Routine Hypothyroidism, acquired Expected: 01/30/2024, Expires: 04/30/2024 [facility] Comment on above: Expected: 01/30/2024, Expires: Start: 01-28-2024 End: 01-28-2024 Patient encounter procedure 01/28/2024 9:00 AM EDT Office Visit [facility] [address] [place] [address] Miryam Orozco APRN.[employer] [address] [place] [address] 6 month follow up [facility] Comment on above: 6 month follow up Start: 01-21-2024 End: 04-21-2024 Comprehensive metabolic 2000 panel - Serum or Plasma COMPREHENSIVE METABOLIC PANEL Lab Routine CKD (chronic kidney disease) stage 4, GFR 15-29 ml/min ([facility]) Expected: 01/21/2024, Expires: 04/21/2024 [facility] Work Phone: Comment on above: Expected: 01/21/2024, Expires: Start: 01-21-2024 End: 04-21-2024 Lipid 1996 panel - Serum or Plasma LIPID PANEL BASIC Lab Routine Hyperlipidemia LDL goal <100 Expected: 01/21/2024, Expires: 04/21/2024 [facility] Work Phone: Comment on above: Expected: 01/21/2024, Expires: 5 Start: 01-21-2024 End: 04-21-2024 Thyrotropin [Units/volume] in Serum or Plasma THYROID STIMULATING HORMONE Lab Routine Hypothyroidism, acquired Expected: 01/21/2024, Expires: 04/21/2024 [facility] Work Phone: Comment on above: Expected: 01/21/2024, Expires: Start: 01-16-2024 Serum Creatinine Serum Creatinine [facility] Start: 12-23-2023 Annual PCP Team Chronic Disease Visit Annual PCP Team Chronic Disease Visit [facility] Start: 12-23-2023 BP Controlled (<130/80) BP Controlled (<130/80) [facility] Start: 12-23-2023 Serum Creatinine Serum Creatinine [facility] Start: 12-17-2023 End: 12-17-2023 Follow-up encounter 12/17/2023 9:30 AM EDT [facility] [address] [place], [place] [address] Weston Lowe APRN.[employer] [address] [place], [place] [address] RFA follow up [facility] Comment on above: RFA follow up Start: 12-17-2023 End: 12-17-2023 Patient encounter procedure 12/17/2023 8:45 AM EDT Office Visit [facility] [address] [place] [id number] Roque Delgado MD [address] [facility] [address] [place], [place] [address] RFA follow up [facility] Comment on above: RFA follow up Start: 12-06-2023 Covid-19 Vaccine ( season) Covid-19 Vaccine ( season) [facility] Start: 12-06-2023 Covid-19 Vaccine ( season) Covid-19 Vaccine ( season) [facility] Start: 12-06-2023 Influenza [facility] Start: 12-04-2023 End: 12-04-2023 Patient encounter procedure 12/04/2023 9:00 AM EDT Office Visit OB/Gynecology [address] [place], [place] [address] Starr Solano MD [address] [place], [place] [id number] Consult IUD removal [facility] Comment on above: Consult IUD removal Start: 11-16-2023 End: 11-16-2023 ambulatory [facility] Comment on above: Right RFA - suprascapular nerve w fluoro ; 81mg asp MEDICARE AUTH [employer] [facility] R Right RFA - suprascapular nerve w fluoro; 81mg asp Start: 10-21-2023 End: 01-20-2024 Comprehensive metabolic 2000 panel - Serum or Plasma COMPREHENSIVE METABOLIC PANEL Lab Routine Chronic constipation Leg swelling CKD (chronic kidney disease) stage 4, GFR 15-29 ml/min ([facility]) Expected: 10/21/2023, Expires: 01/20/2024 [facility] Work Phone: Comment on above: Expected: 10/21/2023, Expires: Start: 09-27-2023 ANNUAL PCP TEAM CHRONIC DISEASE VISIT ANNUAL PCP TEAM CHRONIC DISEASE VISIT [facility] Start: 09-27-2023 SERUM CREATININE SERUM CREATININE [facility] Start: 06-27-2023 ANNUAL PCP TEAM CHRONIC DISEASE VISIT ANNUAL PCP TEAM CHRONIC DISEASE VISIT [facility] Start: 06-27-2023 BP CONTROLLED (<130/80) BP CONTROLLED (<130/80) [facility] Start: 06-11-2023 Blood chemistry [facility] Start: 06-10-2023 Blood chemistry [facility] Start: 06-09-2023 Patient discharge [facility] Start: 06-08-2023 Thyroid stimulating hormone measurement [facility] Start: 06-08-2023 [facility] Start: 06-08-2023 Following clinical pathway protocol [facility] Start: 06-08-2023 Ambulation without limitation [facility] Start: 06-08-2023 Assessment of risk of venous thromboembolism [facility] Start: 06-08-2023 Incentive spirometry [facility] Start: 06-08-2023 Inhalation therapy procedure [facility] Start: 06-08-2023 Insertion of catheter into peripheral vein [facility] Start: 06-08-2023 Measuring intake and output [facility] Start: 06-08-2023 Oxygen therapy [facility] Start: 06-08-2023 Providing care according to standard [facility] Start: 06-08-2023 Referral to service [facility] Start: 06-08-2023 [facility] Start: 06-08-2023 Verification routine [facility] Start: 06-08-2023 Admission procedure [facility] Start: 05-13-2023 BP CONTROLLED (<130/80) BP CONTROLLED (<130/80) [facility] Start: 04-21-2023 ANNUAL PCP TEAM CHRONIC DISEASE VISIT ANNUAL PCP TEAM CHRONIC DISEASE VISIT [facility] Start: 04-21-2023 BP CONTROLLED (<130/80) BP CONTROLLED (<130/80) [facility] Start: 04-06-2023 Behavioral Health Screening Behavioral Health Screening [facility] Start: 04-06-2023 Depression Assessment Depression Assessment [facility] Start: 01-23-2023 End: 03-25-2023 Comprehensive metabolic 2000 panel - Serum or Plasma COMP METABOLIC PANEL Lab Routine Decreased glomerular filtration rate (GFR) Expected: 01/23/2023, Expires: 03/25/2023 [facility] Work Phone: Comment on above: Expected: 01/23/2023, Expires: Start: 01-06-2023 SERUM CREATININE SERUM CREATININE [facility] Start: 01-02-2023 ANNUAL PCP TEAM CHRONIC DISEASE VISIT ANNUAL PCP TEAM CHRONIC DISEASE VISIT [facility] Start: 12-22-2022 End: 02-21-2023 Comprehensive metabolic 2000 panel - Serum or Plasma [facility] Work Phone: Comment on above: Expected: 12/22/2022, Expires: 3 Start: 12-22-2022 End: 02-21-2023 Thyrotropin [Units/volume] in Serum or Plasma [facility] Work Phone: Comment on above: Expected: 12/22/2022, Expires: 3 Start: 12-22-2022 End: 02-21-2023 Thyroxine (T4) free [Mass/volume] in Serum or Plasma [facility] Work Phone: Comment on above: Expected: 12/22/2022, Expires: 3 Start: 12-05-2022 Covid-19 Vaccine () Covid-19 Vaccine () [facility] Start: 12-05-2022 Covid-19 Vaccine () Covid-19 Vaccine () [facility] Start: 12-05-2022 Influenza vaccination [facility] Start: 11-22-2022 BP CONTROLLED (<130/80) BP CONTROLLED (<130/80) [facility] Start: 09-19-2022 Adult depression screening assessment DEPRESSION SCREENING [facility] Start: 07-16-2022 ANNUAL PCP TEAM CHRONIC DISEASE VISIT ANNUAL PCP TEAM CHRONIC DISEASE VISIT [facility] Start: 07-16-2022 BP CONTROLLED (<130/80) BP CONTROLLED (<130/80) [facility] Start: 07-16-2022 HEMOGLOBIN/HEMATOCRIT HEMOGLOBIN/HEMATOCRIT [facility] Start: 07-16-2022 SERUM CREATININE SERUM CREATININE [facility] Start: 06-26-2022 End: 08-26-2022 Bacteria identified in Urine by Culture [facility] Work Phone: Comment on above: Expected: 06/26/2022, Expires: 3 Start: 06-26-2022 End: 08-26-2022 Urinalysis complete panel - Urine [facility] Work Phone: Comment on above: Expected: 06/26/2022, Expires: 3 Start: 04-28-2022 COVID-19 VACCINE (5 - Moderna series) COVID-19 VACCINE (5 - Moderna series) [facility] Start: 04-06-2022 ADVANCE DIRECTIVE DISCUSSION ADVANCE DIRECTIVE DISCUSSION [facility] Start: 04-06-2022 DEPRESSION ASSESSMENT DEPRESSION ASSESSMENT [facility] Start: 01-02-2022 End: 03-04-2022 Comprehensive metabolic 2000 panel - Serum or Plasma COMP METABOLIC PANEL Lab Routine Leg swelling Function kidney decreased Shortness of breath Expected: 01/02/2022, Expires: 03/04/2022 [facility] Work Phone: Comment on above: Expected: 01/02/2022, Expires: 2 Start: 01-02-2022 End: 03-04-2022 Natriuretic peptide.B prohormone N-Terminal [Mass/volume] in Serum or Plasma NT PRO BNP Lab Routine Leg swelling Shortness of breath Expected: 01/02/2022, Expires: 03/04/2022 [facility] Work Phone: Comment on above: Expected: 01/02/2022, Expires: 2 Start: 12-05-2021 Influenza vaccination INFLUENZA (#1) [facility] Start: 07-06-2021 COVID-19 VACCINE (4 - Booster for Moderna series) COVID-19 VACCINE (4 - Booster for Moderna series) [facility] Start: 05-02-2021 COVID-19 VACCINE (4 - Booster for Moderna series) COVID-19 VACCINE (4 - Booster for Moderna series) [facility] Start: 04-06-2021 ADVANCE DIRECTIVE DISCUSSION ADVANCE DIRECTIVE DISCUSSION [facility] Start: 04-06-2021 DEPRESSION ASSESSMENT DEPRESSION ASSESSMENT [facility] Start: 11-26-2019 Adult depression screening assessment DEPRESSION SCREENING [facility] Start: 11-24-2018 Screening for malignant neoplasm of breast [facility] Start: 2017 RSV Vaccine (1 - 1-dose 75+ series) RSV Vaccine (1 - 1-dose 75+ series) [facility] Start: 07-12-2009 SHINGRIX VACCINE (2 of 3) SHINGRIX VACCINE (2 of 3) [facility] Start: 07-12-2009 [facility] Start: 07-05-2008 Medicare Annual Wellness Visit Medicare Annual Wellness Visit [facility] Start: 2002 RSV Vaccine (1 - 1-dose 60+ series) RSV Vaccine (1 - 1-dose 60+ series) [facility] Start: 06-20-1987 Screening for malignant neoplasm of colon [facility] Start: 06-20-1963 Screening for malignant neoplasm of cervix [facility] Start: 1960 BP CONTROLLED (<130/80) BP CONTROLLED (<130/80) [facility] Start: 1942 Screening for osteoporosis [facility] Alanine aminotransfe rase [Enzymatic activity/volume] in Serum or Plasma [facility] Albumin [Mass/volume ] in Serum or Plasma [facility] Alkaline phosphatase [Enzymatic activity/volume] in Serum or Plasma [facility] Anion gap in Serum o r Plasma [facility] Anion gap in Serum o r Plasma [facility] Anion gap in Serum o r Plasma [facility] Anion gap in Serum o r Plasma [facility] Anion gap in Serum o r Plasma [facility] Anion gap measurement [facility] Anion gap measurement [facility] Anion gap measurement [facility] Arthrocentesis aspir &/inj major jt/bursa w/o us DRAIN/INJECT LARGE JOINT/BURSA Procedures Routine Primary osteoarthritis of both shoulders Ordered: 02/16/2023 [facility] Work Phone: Comment on above: Ordered: 02/16/2023 Arthrocentesis aspir &/inj major jt/bursa w/o us DRAIN/INJECT LARGE JOINT/BURSA Procedures Routine Primary osteoarthritis of both shoulders Ordered: 05/18/2023 [facility] Work Phone: Comment on above: Ordered: 05/18/2023 Aspartate aminotransferase [Enzymatic activity/volume] in Serum or Plasma [facility] Bilirubin, total measurement [facility] Blood chemistry [facility] BUN/Creatinine ratio [facility] BUN/Creatinine ratio [facility] BUN/Creatinine ratio [facility] BUN/Creatinine ratio [facility] BUN/Creatinine ratio [facility] BUN/Creatinine ratio [facility] BUN/Creatinine ratio [facility] BUN/Creatinine ratio [facility] Calcium [Mass/volume ] in Serum or Plasma [facility] Calcium [Mass/volume ] in Serum or Plasma [facility] Calcium [Mass/volume ] in Serum or Plasma [facility] Calcium [Mass/volume ] in Serum or Plasma [facility] Calcium [Mass/volume ] in Serum or Plasma [facility] Calcium [Mass/volume ] in Serum or Plasma [facility] Calcium [Mass/volume ] in Serum or Plasma [facility] Calcium [Mass/volume ] in Serum or Plasma [facility] Carbon dioxide, tota l [Moles/volume] in Central venous blood [facility] Carbon dioxide, tota l [Moles/volume] in Central venous blood [facility] Carbon dioxide, tota l [Moles/volume] in Central venous blood [facility] Carbon dioxide, tota l [Moles/volume] in Central venous blood [facility] Carbon dioxide, tota l [Moles/volume] in Central venous blood [facility] Carbon dioxide, tota l [Moles/volume] in Serum or Plasma [facility] Carbon dioxide, tota l [Moles/volume] in Serum or Plasma [facility] Carbon dioxide, tota l [Moles/volume] in Serum or Plasma [facility] Catheterization of l eft heart [facility] Chloride [Moles/volu me] in Serum or Plasma [facility] Chloride [Moles/volu me] in Serum or Plasma [facility] Chloride [Moles/volu me] in Serum or Plasma [facility] Clostridioides diffi cile toxin genes [Presence] in Stool by JEANA with probe detection C. DIFFICILE PCR Lab Routine Rectal bleeding 05/16/2022 8:40 AM EST [facility] Work Phone: Clostridioides diffi cile toxin genes [Presence] in Stool by JEANA with probe detection C. DIFFICILE PCR Lab Routine Change in stool Ordered: 06/26/2022 [facility] Work Phone: Comment on above: Ordered: 06/26/2022 End: 05-05-2024 CMV IGG & IGM, QUANT. [facility] Creatinine [Mass/vol ume] in Serum or Plasma [facility] Creatinine [Mass/vol ume] in Serum or Plasma [facility] Creatinine [Mass/vol ume] in Serum or Plasma [facility] Creatinine [Mass/vol ume] in Serum or Plasma [facility] Creatinine [Mass/vol ume] in Serum or Plasma [facility] Creatinine [Moles/vo lume] in Serum or Plasma [facility] Creatinine [Moles/vo lume] in Serum or Plasma [facility] Creatinine [Moles/vo lume] in Serum or Plasma [facility] End: 08-17-2022 Ct abdomen & pelvis w/o contrast material CT ABD/PEL WO IVCON Radiology Routine Left upper quadrant abdominal pain 1 Occurrences starting 07/18/2021 until 08/17/2022 [facility] Work Phone: Comment on above: 1 Occurrences starting 07/18/2021 until 08/17/2022 Dstrj neurolytic age nt other peripheral nerve NRV DESTR RFA, CHEM OTHER Procedures Routine Primary osteoarthritis of both shoulders Ordered: 07/15/2023 [facility] Work Phone: Comment on above: Ordered: 07/15/2023 Dstrj neurolytic age nt other peripheral nerve NRV DESTR RFA, CHEM OTHER Procedures Routine Primary osteoarthritis of both shoulders Ordered: 11/16/2023 [facility] Work Phone: Comment on above: Ordered: 11/16/2023 End: 05-05-2024 EBV VCA IGG AND IGM [facility] Erythrocyte mean corpuscular volume determination [facility] Erythrocyte mean corpuscular volume determination [facility] Erythrocyte mean corpuscular volume determination [facility] Erythrocyte mean corpuscular volume determination [facility] Erythrocyte mean corpuscular volume determination [facility] Erythrocyte mean corpuscular volume determination [facility] Erythrocyte mean corpuscular volume determination [facility] Erythrocyte mean corpuscular volume determination [facility] Glucose [Mass/volume ] in Serum or Plasma [facility] Glucose [Mass/volume ] in Serum or Plasma [facility] Glucose [Mass/volume ] in Serum or Plasma [facility] Glucose [Mass/volume ] in Serum or Plasma [facility] Glucose [Mass/volume ] in Serum or Plasma [facility] Glucose [Mass/volume ] in Serum or Plasma [facility] Glucose [Mass/volume ] in Serum or Plasma [facility] Glucose [Mass/volume ] in Serum or Plasma [facility] Hematocrit [Volume Fraction] of Blood [facility] Hematocrit [Volume Fraction] of Blood [facility] Hematocrit [Volume Fraction] of Blood [facility] Hematocrit [Volume Fraction] of Blood [facility] Hematocrit [Volume Fraction] of Blood [facility] Hematocrit [Volume Fraction] of Blood [facility] Hematocrit [Volume Fraction] of Blood [facility] Hematocrit [Volume Fraction] of Blood [facility] Hematocrit [Volume Fraction] of Blood [facility] Hemoglobin [Mass/vol ume] in Blood [facility] Hemoglobin [Mass/vol ume] in Blood [facility] Hemoglobin [Mass/vol ume] in Blood [facility] Hemoglobin [Mass/vol ume] in Blood [facility] Hemoglobin [Mass/vol ume] in Blood [facility] Hemoglobin [Mass/vol ume] in Blood [facility] Hemoglobin [Mass/vol ume] in Blood [facility] Hemoglobin [Mass/vol ume] in Blood [facility] Hemoglobin [Mass/vol ume] in Blood [facility] Leukocytes [#/volume ] in Blood [facility] Leukocytes [#/volume ] in Blood [facility] Leukocytes [#/volume ] in Blood [facility] Leukocytes [#/volume ] in Blood [facility] Leukocytes [#/volume ] in Blood [facility] Leukocytes [#/volume ] in Blood [facility] Leukocytes [#/volume ] in Blood [facility] Leukocytes [#/volume ] in Blood [facility] Magnesium [Mass/volu me] in Serum or Plasma [facility] Mean corpuscular hemoglobin concentration determination [facility] Mean corpuscular hemoglobin concentration determination [facility] Mean corpuscular hemoglobin concentration determination [facility] Mean corpuscular hemoglobin concentration determination [facility] Mean corpuscular hemoglobin concentration determination [facility] Mean corpuscular hemoglobin concentration determination [facility] Mean corpuscular hemoglobin concentration determination [facility] Mean corpuscular hemoglobin concentration determination [facility] Mean corpuscular hemoglobin determination [facility] Mean corpuscular hemoglobin determination [facility] Mean corpuscular hemoglobin determination [facility] Mean corpuscular hemoglobin determination [facility] Mean corpuscular hemoglobin determination [facility] Mean corpuscular hemoglobin determination [facility] Mean corpuscular hemoglobin determination [facility] Mean corpuscular hemoglobin determination [facility] Measurement of renal function [facility] Measurement of renal function [facility] Measurement of renal function [facility] Measurement of renal function [facility] Measurement of renal function [facility] Measurement of renal function [facility] Measurement of renal function [facility] Measurement of renal function [facility] Neutrophil count [facility] Neutrophil count [facility] Neutrophil count [facility] Neutrophil count [facility] Neutrophil count [facility] Neutrophil count [facility] Neutrophil count [facility] Neutrophil count [facility] Neutrophil percent differential count [facility] Neutrophil percent differential count [facility] Neutrophil percent differential count [facility] Neutrophil percent differential count [facility] Neutrophil percent differential count [facility] Neutrophil percent differential count [facility] Neutrophil percent differential count [facility] Neutrophil percent differential count [facility] Nucleic acid assay [facility] Patient Education [facility] Work Phone: Patient referral [facility] Work Phone: Platelets [#/volume] in Blood [facility] Platelets [#/volume] in Blood [facility] Platelets [#/volume] in Blood [facility] Platelets [#/volume] in Blood [facility] Platelets [#/volume] in Blood [facility] Platelets [#/volume] in Blood [facility] Platelets [#/volume] in Blood [facility] Platelets [#/volume] in Blood [facility] Potassium [Moles/vol ume] in Serum or Plasma [facility] Potassium [Moles/vol ume] in Serum or Plasma [facility] Potassium [Moles/vol ume] in Serum or Plasma [facility] Potassium measurement [facility] Potassium measurement [facility] Potassium measurement [facility] Potassium measurement [facility] Potassium measurement [facility] Prq impltj neurostimulator eltrd peripheral nrv PERCUT IMPLANT NEUROELEC. Procedures Routine Chronic bilateral low back pain without sciatica Lumbar spondylosis Ordered: 07/30/2022 [facility] Work Phone: Comment on above: Ordered: 07/30/2022 Prq impltj neurostimulator eltrd peripheral nrv PERCUT IMPLANT NEUROELEC. Procedures Routine Lumbar spondylosis Chronic bilateral low back pain without sciatica Ordered: 08/13/2022 [facility] Work Phone: Comment on above: Ordered: 08/13/2022 PT PLAN OF CARE CERTIFICATION PT PLAN OF CARE CERTIFICATION Procedures Routine Lymphedema Ordered: 11/22/2021 [facility] Comment on above: Ordered: 11/22/2021 End: 10-19-2022 Radex spine lumbosacral minimum 4 views XR LUMBAR MOTION 4V AP/LAT/ FLEX/EXT Radiology Routine Lumbar spondylosis 1 Occurrences starting 09/19/2021 until 10/19/2022 [facility] Work Phone: Comment on above: 1 Occurrences starting 09/19/2021 until 10/19/2022 Radex spine lumbosac ral minimum 4 views XR LUMBAR MOTION 4V AP/LAT/ FLEX/EXT Radiology Routine Lumbar spondylosis 09/20/2021 1:48 PM EDT [facility] Work Phone: End: 10-19-2022 Radex spine thoracic 2 views XR THORACIC LIMITED 2V AP/LAT Radiology Routine Thoracic spine pain 1 Occurrences starting 09/19/2021 until 10/19/2022 [facility] Work Phone: Comment on above: 1 Occurrences starting 09/19/2021 until 10/19/2022 Radex spine thoracic 2 views XR THORACIC LIMITED 2V AP/LAT Radiology Routine Thoracic spine pain 09/20/2021 1:48 PM EDT [facility] Work Phone: Red blood cell count [facility] Red blood cell count [facility] Red blood cell count [facility] Red blood cell count [facility] Red blood cell count [facility] Red blood cell count [facility] Red blood cell count [facility] Red blood cell count [facility] Red cell distributio n width determination [facility] Red cell distributio n width determination [facility] Red cell distributio n width determination [facility] Red cell distributio n width determination [facility] Red cell distributio n width determination [facility] Red cell distributio n width determination [facility] Red cell distributio n width determination [facility] Red cell distributio n width determination [facility] Serum chloride measurement [facility] Serum chloride measurement [facility] Serum chloride measurement [facility] Serum chloride measurement [facility] Serum chloride measurement [facility] Serum inorganic phos phate measurement [facility] Sodium [Moles/volume ] in Serum or Plasma [facility] Sodium [Moles/volume ] in Serum or Plasma [facility] Sodium [Moles/volume ] in Serum or Plasma [facility] Sodium measurement [facility] Sodium measurement [facility] Sodium measurement [facility] Sodium measurement [facility] Sodium measurement [facility] Total protein measurement [facility] Troponin T.cardiac [Mass/volume] in Serum or Plasma by High sensitivity method [facility] Troponin T.cardiac [Mass/volume] in Serum or Plasma by High sensitivity method [facility] Urea nitrogen [Mass/volume] in Serum or Plasma [facility] Urea nitrogen [Mass/volume] in Serum or Plasma [facility] Urea nitrogen [Mass/volume] in Serum or Plasma [facility] Urea nitrogen [Mass/volume] in Serum or Plasma [facility] Urea nitrogen [Mass/volume] in Serum or Plasma [facility] Urea nitrogen [Mass/volume] in Serum or Plasma [facility] Urea nitrogen [Mass/volume] in Serum or Plasma [facility] Urea nitrogen [Mass/volume] in Serum or Plasma [facility] URODYNAMICS WHI URODYNAMICS I Procedures Routine Female stress incontinence Urge urinary incontinence Ordered: 06/30/2022 [facility] Work Phone (unformatted): [phone] Comment on above: Ordered: 06/30/2022 End: 02-01-2023 Us abdominal real time w/image documentation US ABDOMEN COMPLETE Radiology STAT Abdominal distension 1 Occurrences starting 01/02/2022 until 02/01/2023 [facility] Work Phone: Comment on above: 1 Occurrences starting 01/02/2022 until 02/01/2023 End: 10-12-2025 XR Chest PA and Lateral XR CHEST 2V FRONTAL/LAT Radiology Routine Subacute cough 1 Occurrences starting 09/12/2024 until 10/12/2025 [facility] Work Phone: Comment on above: 1 Occurrences starting 09/12/2024 until 10/12/2025 XR Chest PA and Lateral XR CHEST 2V FRONTAL/LAT Radiology Routine Subacute cough 09/12/2024 4:11 PM EDT [facility] End: 02-14-2024 XR SHOULDER LIMITED 2V AP/TRUE AP LEFT XR SHOULDER LIMITED 2V AP/TRUE AP LEFT Radiology Routine Primary osteoarthritis of both shoulders Rotator cuff impingement syndrome, unspecified laterality 1 Occurrences starting 01/15/2023 until 02/14/2024 [facility] Work Phone: Comment on above: 1 Occurrences starting 01/15/2023 until 02/14/2024 XR SHOULDER LIMITED 2V AP/TRUE AP LEFT XR SHOULDER LIMITED 2V AP/TRUE AP LEFT Radiology Routine Primary osteoarthritis of both shoulders Rotator cuff impingement syndrome, unspecified laterality 01/15/2023 11:18 AM EDT [facility] Work Phone: End: 02-14-2024 XR SHOULDER [id number] AP/TRUE AP RIGHT XR SHOULDER [id number] AP/TRUE AP RIGHT Radiology Routine Primary osteoarthritis of both shoulders Rotator cuff impingement syndrome, unspecified laterality 1 Occurrences starting 01/15/2023 until 02/14/2024 [facility] Work Phone: Comment on above: 1 Occurrences starting 01/15/2023 until 02/14/2024 XR SHOULDER LIMITED2 V AP/TRUE AP RIGHT XR SHOULDER [id number] AP/TRUE AP RIGHT Radiology Routine Primary osteoarthritis of both shoulders Rotator cuff impingement syndrome, unspecified laterality 01/15/2023 11:17 AM EDT [facility] Work Phone: [facility] Immunizations Immunization Date Immunization Notes Care Provider Fa [facility] 10-26-2024 tetanus toxoid, redu tana diphtheria toxoid, and acellular pertussis vaccine, adsorbed Miryam Orozco [employer]IC[employer] Work Phone: [facility] 03-23-2024 respiratory syncytia l virus (RSV) vaccine, adjuvanted (AREXVY) Lizy Capone MD Work Phone: [facility] 01-28-2024 COVID-19 vaccine, ag e 12+ yr (PFIZER-BIONTECH COMIRNATY) Miryam Orozco 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 Judson Toney Work Phone: [facility] 01-04-2023 influenza virus vacc ine, unspecified formulation Roque Delgado MD Work Phone: [facility] 02-12-2022 Influenza High-Dose Quadrivalent Dr. 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 Judson nunez Work Phone: [facility] 12-17-2020 Influenza High-Dose Quadrivalent Dr. Judson Toney Work Phone: [facility] 12-17-2020 influenza, high dose seasonal, preservative-free Lizy Capone MD Work Phone: [facility] 07-02-2020 Covid (Moderna) Dr. Lizy lucero Work Phone: [facility] 06-04-2020 Covid (Moderna) Dr. Lizy lucero Work Phone: [facility] 11-23-2019 Influenza, high dose seasonal Miryam Orozco [employer]IC[employer] Work Phone: [facility] 11-23-2019 influenza, high dose seasonal, preservative-free Lizy Capone MD Work Phone: [facility] 01-06-2019 Seasonal trivalent influenza vaccine, adjuvanted, preservative free Dr. uJdson Toney Work Phone: [facility] 12-11-2017 Influenza, high dose seasonal Miryam Orozco [employer]IC[employer] Work Phone: [facility] 12-11-2017 influenza, high dose seasonal, preservative-free Lizy Capone MD Work Phone: [facility] 08-31-2017 tetanus toxoid, redu tana diphtheria toxoid, and acellular pertussis vaccine, adsorbed Lizy Capone MD Work Phone: [facility] 01-06-2017 Influenza, high dose seasonal Miryam Tannhof [employer]CH[employer]IC[employer] Work Phone: [facility] 01-06-2017 influenza, high dose seasonal, preservative-free Lizy Capone MD Work Phone: [facility] 01-29-[address] Lizy Capone Work Phone: [facility] 01-23-2016 Influenza, high dose seasonal Miryam Tannhof [employer]CH[employer]IC[employer] Work Phone: [facility] 01-23-2016 influenza, high dose seasonal, preservative-free Dr. Judson Toney Work Phone: [facility] 12-06-2015 Influenza, high dose seasonal Miryam Tannhof [employer] MECH[employer]IC[employer] Work Phone: [facility] 12-06-2015 influenza, high dose seasonal, preservative-free Lizy Capone MD Work Phone: [facility] 02-26-2015 pneumococcal conjuga te vaccine, 13 valent Lizy Capone MD Work Phone: [facility] 12-30-2014 Influenza, high dose seasonal Miryam Kimballhof [employer]CH[employer]IC[employer] Work Phone: [facility] 12-30-2014 influenza, high dose seasonal, preservative-free Lizy Capone MD Work Phone: [facility] 02-02-2012 influenza virus vacc ine, unspecified formulation Lizy Capone MD Work Phone: [facility] 02-02-2012 pneumococcal polysaccharide vaccine, 23 valent Lizy Capone MD Work Phone: [facility] 02-21-2010 influenza virus vacc ine, unspecified formulation Lizy Capone MD Work Phone: [facility] 05-17-2009 zoster vaccine, live Lizy chavis MD Work Phone: [facility] 04-16-2009 novel influenza-H1N1 -09, preservative-free, injectable Dr. Judson Toney Work Phone: [facility] 02-03-2008 influenza virus vacc ine, unspecified formulation Lizy Capone MD Work Phone: [facility] 07-01-2007 tuberculin skin test ; purified protein derivative solution, intradermal Starr Marques MD Work Phone: [facility] 02-04-2007 influenza virus vacc ine, unspecified formulation Lizy Capone MD Work Phone: [facility] Work Phone: 01-06-2007 pneumococcal polysaccharide vaccine, 23 valent Lizy Capone MD Work Phone: [facility] 02-03-2006 influenza virus vacc ine, whole virus Lizy Capone MD Work Phone: [facility] Work Phone: 01-30-2005 influenza virus vacc ine, whole virus Lizy Capone MD Work Phone: [facility] Work Phone: 01-06-2005 pneumococcal conjuga te vaccine, 7 valent Lizy Capone MD Work Phone: [facility] Work Phone: 12-26-1999 tetanus toxoid, adsorbed Shirley Capone MD Work Phone: [facility] Work Phone: Payers Date Payer Category Payer Managed Care (unspecified) [id number] 2023 Medicare [id number] 2023 Self-pay [id number] 2023 Unknown [id number] 2008 Medicare MEDICARE MEDICAR E A AND B [id number] 2008-Present [phone] [address] [address] [place] [address] Medicare [id number] 2008 Medicare [id number]. [id number] 2008 Unknown [facility] [id number] 2008-Present [address] [place] [address] Indemnity [id number]. 2.7.3.446627.315 2008 Unknown [id number] 2007 Medicare [id number] 1998 Unknown [id number]. 1.13.159. 2.7.3.502866.315 1942 Unknown [id number] 2.16.840.1.577011.3.579. 2.732 1942 Unknown [id number] 2.16.840.1.928812.3.579. 2.594 Unknown [id number] 2.16.840.1.156621.3.579. 2.462 Unknown [id number] 2.16840.1.649865.3.579. 2.462 Unknown [id number] 2.16840.1.657688.3.579. 2.462 Unknown [id number] 2.16.840.1.171340.3.579. 2.462 Unknown [id number] 2.16.840.1.481785.3.579. 2.462 Unknown [id number] 2.16.840.1.703057.3.579. 2.462 Unknown [id number] 2.16840.1.201243.3.579. 2.462 Unknown [id number] 2.16.840.1.859569.3.579. 2.462 Unknown [id number] 2.16.840.1.732526.3.579. 2.462 Unknown [id number] 2.16.840.1.962095.3.579. 2.462 Unknown [id number] 2.16.840.1.790166.3.579. 2.462 Unknown [id number] 2.16840.1.263400.3.579. 2.462 Unknown [id number] 2.16840.1.853166.3.579. 2.462 Unknown [id number] 2.840.1.002903.3.579. 2.462 Unknown [id number] 2.840.1.148230.3.579. 2.462 Unknown [id number] 2.840.1.127988.3.579. 2.462 Unknown [id number] 2.840.1.682785.3.579. 2.462 Unknown [id number] 2.840.1.240595.3.579. 2.462 Unknown [id number] 2.840.1.396535.3.579. 2.462 Unknown [id number] 2.840.1.929837.3.579. 2.462 Unknown [id number] 2.840.1.178873.3.579. 2.462 Unknown [id number] 2.840.1.750438.3.579. 2.462 Unknown [id number] 2.840.1.790689.3.579. 2.462 Unknown [id number] 2.16840.1.003337.3.579. 2.462 Unknown [id number] 2.840.1.425062.3.579. 2.462 Unknown [id number] 2.840.1.571689.3.579. 2.462 Unknown [id number] 2.16.840.1.252966.3.579. 2.462 Unknown [id number] 2.16.840.1.613180.3.579. 2.462 Unknown [id number] 2.16.840.1.910780.3.579. 2.462 Unknown [id number] 2.16.840.1.650399.3.579. 2.462 Unknown [id number] 2.16.840.1.902586.3.579. 2.462 Unknown [id number] 2.16.840.1.641526.3.579. 2.462 Unknown [id number] 2..840.1.139841.3.579. 2.462 Unknown [id number] 2.16840.1.340695.3.579. 2.462 Unknown [id number] 2.840.1.894977.3.579. 2.462 Unknown [id number] 2.16.840.1.335969.3.579. 2.462 Unknown [id number] 2.16.840.1.445782.3.579. 2.462 Unknown [id number] 2.16.840.1.320790.3.579. 2.462 Unknown [id number] 2.16840.1.276416.3.579. 2.462 Unknown [id number] 2.840.1.441751.3.579. 2.462 Unknown [id number] 2.16.840.1.655666.3.579. 2.462 Unknown [id number] 2.16.840.1.211667.3.579. 2.462 Unknown [id number] 2.16.840.1.238635.3.579. 2.462 Unknown [id number] 2.16.840.1.386841.3.579. 2.462 Unknown [id number] 2.16840.1.817469.3.579. 2.462 Unknown [id number] 2.16.840.1.387257.3.579. 2.462 Unknown [id number] 2.16.840.1.142847.3.579. 2.462 Unknown [id number] 2.16.840.1.621229.3.579. 2.462 Unknown [id number] 2.16.840.1.512075.3.579. 2.462 Unknown [id number] 2.16.840.1.726612.3.579. 2.462 Unknown [id number] 2.16.840.1.613788.3.579. 2.462 Unknown [id number] 2.16.840.1.630753.3.579. 2.462 Unknown [id number] 2.16.840.1.357911.3.579. 2.462 Unknown [id number] 2.16840.1.182148.3.579. 2.462 Unknown [id number] 2.16.840.1.594046.3.579. 2.462 Unknown [id number] 2.16.840.1.582119.3.579. 2.462 Unknown [id number] 2.16.840.1.425314.3.579. 2.462 Unknown [id number] 2.16.840.1.529623.3.579. 2.462 Unknown [id number] 2.16.840.1.413311.3.579. 2.462 Unknown [id number] 2.16.840.1.328259.3.579. 2.462 Unknown [id number] 2.16.840.1.388973.3.579. 2.462 Unknown [id number] 2.16.840.1.343757.3.579. 2.462 Unknown [id number] 2.16.840.1.131556.3.579. 2.462 Unknown [id number] 2.16.840.1.553406.3.579. 2.462 Unknown [id number] 2.16.840.1.197718.3.579. 2.462 Unknown [id number] 2.16.840.1.777397.3.579. 2.462 Unknown [id number] 2.16.840.1.549996.3.579. 2.462 Unknown [id number] 2.16.840.1.212646.3.579. 2.462 Unknown [id number] 2.16.840.1.000830.3.579. 2.462 Unknown [id number] 2.16.840.1.879465.3.579. 2.462 Unknown [id number] 2.16.840.1.940143.3.579. 2.462 Unknown [id number] 2.16840.1.576275.3.579. 2.462 Unknown [id number] 2.16.840.1.138834.3.579. 2.462 Unknown [id number] 2.16.840.1.568687.3.579. 2.462 Unknown [id number] 2.16.840.1.595443.3.579. 2.462 Unknown [id number] 2.16840.1.679154.3.579. 2.462 Unknown [id number] 2.16.840.1.681253.3.579. 2.462 Unknown [id number] 2.16.840.1.786171.3.579. 2.462 Unknown [id number] 2.16.840.1.620611.3.579. 2.462 Unknown [id number] 2.16.840.1.571089.3.579. 2.462 Unknown [id number] 2.16.840.1.681343.3.579. 2.462 Unknown [id number] 2.16.840.1.916900.3.579. 2.462 Unknown [id number] 2.16.840.1.156661.3.579. 2.462 Social History Date Type Detail Facility Start: 04-27-2017 End: 12-04-2023 Tobacco smoking status NHIS Ex-smoker [facility] Start: 04-06-1952 End: 04-06-1953 History of tobacco use Current smoker [facility] Work Phone: Start: 04-06-1952 End: 04-06-1953 History of tobacco use Cigarette Smoker [facility] Work Phone: Start: 07-16-2021 End: 10-24-2024 Alcohol intake Current drinker of alcohol (finding) [facility] Start: 11-18-2016 History SDOH Alcohol Comment ocas glass of wine [facility] Start: 1940 Sex Assigned At Not on file [facility] Start: 07-06-2021 End: 01-30-2022 Exposure to SARS-CoV-2 (event) Not sure [facility] Start: 08-06-2021 End: 05-05-2024 Tobacco smoking status NHIS Unknown if ever smoked [facility] Start: 04-15-2016 None [facility] Start: 01-09-2021 Non-smoker [facility] Start: 1940 Sex Assigned At Female [facility] Start: 04-27-2017 End: 09-26-2022 Cigarettes smoked current (pack per day) - Reported 0.3 [facility] Start: 04-27-2017 End: 12-04-2023 Tobacco use and exposure Smokeless tobacco non-user [facility] Start: 11-28-2021 History SDOH Alcohol Comment occasionally [facility] Start: 09-26-2022 End: 10-16-2022 Tobacco use panel [facility] Adult Depression Screening Assessment 0 [facility] Start: 04-15-2016 Roommate [facility] Start: 03-14-2024 End: 07-29-2024 Sex Female (finding) [facility] Start: 05-18-2024 End: 10-26-2024 Tobacco smoking status NHIS Never smoked tobacco (finding) [facility] NEGATED: Highlighted row [facility] Medical Equipment Procedure Code Equipment Code Equipment Origin al Text Equipment Identifier Dates Anchr Sut 4.5mm Pshlk Spnl - [id number] Start: 04-24-2011 Comment on above: Description: MICHELLE ROBLES Goals Date Patient Goal Desired Activity /State Functional Status Date Assessment Result Facility 10-20-2024 Functional status Chair [facility] Work Phone: 10-19-2024 Functional status Standard Walker [facility] Work Phone: 10-18-2024 Functional status Ambulates [facility] Work Phone: 10-16-2024 Functional status Ambulates;Bath room Privilege [facility] Work Phone: 10-12-2024 Functional status With Assist of 1 [facility] Work Phone: 10-11-2024 Functional status Ambulates [facility] Work Phone: 10-04-2024 Functional status Ambulates [facility] Work Phone: 10-03-2024 Functional status Ambulates [facility] Work Phone: 06-10-2024 Functional status With Assist of 2 [facility] Work Phone: 06-07-2024 Functional status Bedrest [facility] Work Phone: 05-10-2024 Are you deaf, or do you have serious difficulty hearing No [facility] 05-10-2024 Are you blind, or do you have serious difficulty seeing, even when wearing glasses No [facility] 05-10-2024 Do you have serious difficulty walking or climbing stairs No [facility] 05-10-2024 Do you have difficul ty dressing or bathing Yes [facility] 05-10-2024 Because of a physica l, mental, or emotional condition, do you have difficulty doing errands alone such as visiting a physician's office or shopping Yes [facility] 05-05-2024 Functional status Patient unable to answe r [facility] 05-04-2024 Functional status Bedrest [facility] Work Phone: 06-09-2023 Functional status Ambulates [facility] Work Phone: 08-15-2013 Are you deaf, or do you have serious difficulty hearing No 08/15/2013 4:14 PM EDT Alex Lackey MA No [facility] 08-15-2013 Are you blind, or do you have serious difficulty seeing, even when wearing glasses No 08/15/2013 4:14 PM EDT Alex Lackey MA No [facility] 08-15-2013 Do you have serious difficulty walking or climbing stairs No 08/15/2013 4:14 PM EDT Alex Lackey MA No [facility] 08-15-2013 Do you have difficul ty dressing or bathing No 08/15/2013 4:14 PM EDT Alex Lackey MA No [facility] 08-15-2013 Because of a physica l, mental, or emotional condition, do you have difficulty doing errands alone such as visiting a physician's office or shopping No 08/15/2013 4:14 PM EDT Alex Lackey MA No [facility] Mental Status Date Assessment Result Facility 10-20-2024 Cognitive function Voice/Name [facility] Work Phone: 10-17-2024 Cognitive function Voice/Name [facility] Work Phone: 10-16-2024 Cognitive function Voice/Name [facility] Work Phone: 10-14-2024 Cognitive function Voice/Name [facility] Work Phone: 10-12-2024 Cognitive function Voice/Name [facility] Work Phone: 10-09-2024 Cognitive function Appropriate;C ooperativ e [facility] Work Phone: 10-04-2024 Cognitive function Voice/Name [facility] Work Phone: 10-03-2024 Cognitive function Voice/Name [facility] Work Phone: 09-06-2024 Cognitive function Voice/Name [facility] Work Phone: 06-10-2024 Cognitive function Voice/Name [facility] Work Phone: 05-10-2024 Because of a physica l, mental, or emotional condition, do you have serious difficulty concentrating, remembering, or making decisions No [facility] 05-04-2024 Cognitive function Touch/Shaking ;Light Pain [facility] Work Phone: 05-03-2024 Cognitive function None [facility] Work Phone: 06-09-2023 Cognitive function Voice/Name [facility] Work Phone: 08-15-2013 Because of a physica l, mental, or emotional condition, do you have serious difficulty concentrating, remembering, or making decisions No 08/15/2013 4:14 PM EDT Alex Lackey MA No [facility] Clinical Notes 11-24-2016 to 10-27-2024 Telephone Encounter - Pamela Shafer RN - 10/27/2024 9:17 AM EDTTelephone Encounter - Pamela Shafer RN - 10/27/2024 9:17 AM EDTTelephone Encounter - Lora Najera RN - 10/21/2024 12:45 PM EDT Note Date & Type Note Facility 10-27-2024 Telephone encounter Note Kamille with [facility] notified. Pamela Shafer RN [facility] 10-27-2024 Miscellaneous Notes Kamille with [facility] notified. Pamela Shafer RN Staff, Please reach out to the [facility] contact to verbally okay the patients recommended wound care needs Verbal order , yes!! Thanks , Trever Bertrand DO Kamille with [facility] HH calls to request orders for wound care to right lower leg. Patient has several wounds to right lower leg and will be going to the Wound Center or 10/31/2024. Kamille would like orders for all open wounds to be cleansed with soap and water and covered with gauze, abd pad, Kerlix, and secured with tape. Also requesting an order for an JEANCARLOS Wrap to the right leg. Also requesting for any wound that is deeper than 1 inch to do a wet to dry dressing. Kamille requesting verbal orders for wound care to be performed until patient is seen at Wound Center on Thursday10/31/2024. They plan to see patient sometime this morning so need orders as soon as possible. Please review and advise, Olga Dillard RN documented in this encounter [facility] 10-27-2024 Telephone encounter Note Staff, Please reach out to the [facility] contact to verbally okay the patients recommended wound care needs Verbal order , yes!! Thanks , Trever Bertrand DO [facility] Work Phone: 10-27-2024 Telephone encounter Note Kamille with [facility] calls to request orders for wound care to right lower leg. Patient has several wounds to right lower leg and will be going to the Wound Center or 10/31/2024. Kamille would like orders for all open wounds to be cleansed with soap and water and covered with gauze, abd pad, Kerlix, and secured with tape. Also requesting an order for an JEANCARLOS Wrap to the right leg. Also requesting for any wound that is deeper than 1 inch to do a wet to dry dressing. Kamille requesting verbal orders for wound care to be performed until patient is seen at Wound Center on Thursday10/31/2024. They plan to see patient sometime this morning so need orders as soon as possible. Please review and advise, Olga Dillard RN [facility] 10-24-2024 Telephone encounter Note Noted Seen in office today Lizy Capone MD [facility] 10-24-2024 Miscellaneous Notes Noted Seen in office today Lizy Capone MD Lora from [facility] HH calls and states that patient was restarted for long-term services and patient will be seen 1 time a week times 4 weeks. Patient was just recently hospitalized and there are a couple of medications that were not on patient discharge paperwork that patient still has in her home. Lisinopril-hydrochlorothiazide 10-12.5 mg Lacosamide 100 mg Also patient was started on Gemtesa [address] Hernandez for overactive bladder. Patient is complaining of burning with urination. Patient is scheduled to see Dr. Capone on Thursday10/24/2024. Lora Najera RN documented in this encounter [facility] 10-24-2024 History of Presen t illness Narrative Transitional Care Management TCM Eligibility Documentation The following information was gathered during patient outreach 10/21/2024 Date of Outreach: Outreach Attempt 1: Contact Made Date of Discharge 10/20/2024 Provider Documentation Mari Lopez is a 84 year old female here today for a follow up from recent hospitalization. I have reviewed the patient's hospital course including discharge summary, discharge medications, and follow up needs with the patient and any family members present at today's visit. HPI 7 Day TCM Pt was admitted to [facility] on 09/28/24, following a fall, for lower extremity pain, and was discharged on 10/04/24 to TCU with debility. She was sent back down to ER on 10/12/24 for chest pains. Discharged home 10/20/24 with diagnosis of chronic renal failure, stage 4. She was discharged home with her friend, Alex. Follows with Cardio, miter sawyer, urologist, going to wound center, neurologist, ortho. Going to wound center for wound on her leg. Had graft done. Still having significant pain at the donor site in her right proximal thigh. Using oxycodone 5 mg four times daily for this. Pt states she has had 3 UTI last year and is working on 3 UTI this year. She is asking if she can get a low dose antibiotic to take to help with that, asked about Macrobid. Advised ehre that this is contraindicated in chronic renal failure. Having increased swelling in her legs, gained 30 pounds over the last couple of weeks, has Cardiology follow up tomorrow breathing has been stable; gets Shortness of Breath with activity, O2 sats at home > 90%. -Pt discharged from [facility] on 10/20/24. -Admitted for: Chronic renal failure, stage 4 Below copied from Huddle: History of Present Illness Chief Complaint: Chest Pain Detail of Chief Complaint: Nausea all day with vomiting x 2 and palpitations Informant: patient Onset/Context/Timing Onset: Today Context: Sudden Onset Timing: Continuous (The nausea is continuous. The palpitations is intermittent) Quality: The not feel well and feels sick to her stomach and HPI narrative Location: GI and cardiac Current Severity: Mild Worsened by: Patient states her nausea is worse when she eats and she has vomited twice Relieved by: Apparently nothing Associated Symptoms Associated Symptoms: No other symptoms. Narrative Narrative: Patient is a 84-year-old woman. She is presently in the TCU floor. She was sent down because of nausea this been continuous since this morning. She has had 2 episodes of vomiting. Emesis without blood or coffee-ground's. She denies abdominal pain. She still feels nauseous. She has had no diarrhea or constipation. She is status post surgery several years ago. She denies chest pain, tightness, heaviness or pressure. She stated twice during the history and physical that she had palpitations, which she described as it is jumping out of my chest again. Patient denies shortness of breath. Patient does complain of chronic back pain that is unchanged from baseline. She is presently in the TCU for after hospitalization for cellulitis of right leg and skin graft. She inform me that Dr. 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 She is on an anticoagulant. Patient did have an EKG performed in the TCU unit. The one that was ordered here will be canceled. She was in A-fib with RVR. Rate is 131. She has a left bundle branch block. She was durations 144 ms. QRS duration 354 ms. There is no acute ischemic changes noted. Discharge Diagnosis (1) Chronic renal failure (CRF), stage 4 (severe): Status: Acute Code(s): N18.4 - Chronic kidney disease, stage 4 (severe) Plan 84 year old female with below past medical history hospitalized for encephalopathy 2/2 acute kidney injury, hyperkalemia, E. Coli UTI, metabolic acidosis, tremor, admitted to TCU with debility, here for rehabilitation, strengthening, prior to discharge home with roommate. Debility - PT/OT. Pain - Tylenol 1000mg tid, Oxycodone 5mg q4 prn pain (1-10), Lidoderm 1 patch td daily. Bowel - Miralax 17gm daily, senna/colace 2 tablets bid, Dulcolax 10mg pr daily prn. Adult immunization - Administer pneumonia vaccine, covid vaccine, flu vaccine as appropriate. DVT prophylaxis - Eliquis. Hyperlipidemia - Atorvastatin 40mg qhs. Cough - Mucinex 600mg bid, Tessalon perles 100mg tid. CKD stage 4 - Dr. Albrecht. Hyperphosphatemia - Phoslo 667mg tidcm. Metabolic acidosis - Sodium bicarb 650mg 4x/day. Atrial fibrillation - Coreg 6.25mg bidcm, Eliquis 2.5mg bid. Coronary artery disease - Coreg 6.25mg bidcm, Eliquis 2.5mg bid, NTG 0.4mg sl q5m prn. Vitamin D deficiency - D3 50mcg daily. Iron deficiency anemia - Ferrous sulfate 325mg daily. Neuropathic pain - Gabapentin 100mg tid. Seizure disorder - Vimpat 100mg bid. Hypothyroidism - Levothyroxine 125mg daily. Skin irritation - Calmoseptine topical bid. Nutrition - MVI 1 tablet daily. Zinc deficiency - Zinc 50mg daily. The following psychotropic medication was present on admission: Mirtazapine 7.5mg qhs. Psychotropic medication therapy is indicated for a diagnosis of: Depression/Insomnia. Based on my clinical evaluation, continuation of the medication is necessary at this time. Gradual dose reduction plan (select one): ____ GDR will be attempted. Will monitor patient symptoms and behaviors in response to GDR. __x__ GRD contraindicated. Reason contraindicated: Minutes Spent on Discharge: 35 Hospital Course: 84 year old female with below past medical history hospitalized for encephalopathy 2/2 acute kidney injury, hyperkalemia, E. Coli UTI, metabolic acidosis, tremor, admitted to TCU with debility, here for rehabilitation, strengthening, prior to discharge home with roommate. PHYSICAL EXAMINATION BP 93/63 Pulse 117 Resp 18 Wt 120.7 kg (266 lb) SpO2 96% BMI 48.65 kg/m GENERAL: well appearing, alert, in no acute distress and uses wheelchair HEART: regular rate and rhythm. No murmur, rubs or gallops. LUNGS: clear to auscultation, no wheezing, rhonchi, or crackles EXTREMITIES: bilateral edema - moderate to severe into thighs ASSESSMENT/PLAN: 1. BENIGN HYPERTENSION(aka HTN) - ICD9: 401.1, ICD10: I10 (primary diagnosis) - Controlled - Continue current medications - Recommend home blood pressure monitoring, to bring results to next visit 2. Seizures (HCC) - ICD9: 780.39, ICD10: R56.9 Stable Continue current medications. - LACOSAMIDE 100 MG TABLET 3. Hypothyroidism, acquired - ICD9: 244.9, ICD10: E03.9 - Instructed patient on importance of taking on an empty stomach either first thing in the morning or at bedtime. - continue current dose of Synthroid 4. Renal failure, unspecified chronicity - ICD9: 586, ICD10: N19 Monitored by Nephrology Currently taking Lasix 40 mg daily 5. CKD (chronic kidney disease) stage 4, GFR 15-29 ml/min (HCC) - ICD9: 585.4, ICD10: N18.4 - eGFR: 26 Stable - Follow up with kidney medicine 6. Insomnia, unspecified type - ICD9: 780.52, ICD10: G47.00 Continue current medications. 7. Recurrent UTI (urinary tract infection) - ICD9: 599.0, ICD10: N39.0 recurrent Has appt with Urology next month 8. Bilateral leg edema - ICD9: 782.3, ICD10: R60.0 Follow up with Cardiology as scheduled tomorrow Follow up in 1 month I agree with the Chief Complaint, ROS, and Past Histories independently gathered by the clinical network support and the remaining scribed note accurately describes my personal service to the patient. Lizy Capone MD The documentation for this note was completed by Alex Lackey MA acting as scribe for Lizy Capone MD. October 24, 2024 2:06 PM. Alex Lackey MA documented in this encounter [facility] 10-24-2024 Hospital Discharg e instructions Additional Instructions Monitor for signs of infection. Take all of your antibiotics. Keep your appointment with the wound clinic on Thursday with Dr. Lomax. Sutures need to be removed in 10 to 14 days. Continue the wet-to-dry dressings twice a day. Return back to the ED if symptoms change or worsen. No soaking in the bathtub, hot tubs, lakes, hernandez, oceans until fully. [facility] Work Phone: 10-24-2024 Note HNO ID: [id number] Author: LIZY CAPONE MD Service: ? Author Type: Physician Type: Progress Notes Filed: 10/24/2024 19:28 Note Text: Transitional Care Management TCM Eligibility Documentation The following information was gathered during patient outreach 10/21/2024 Date of Outreach: Outreach Attempt 1: Contact Made Date of Discharge 10/20/2024 Provider Documentation Mari Lopez is a 84 year old female here today for a follow up from recent hospitalization. I have reviewed the patient's hospital course including discharge summary, discharge medications, and follow up needs with the patient and any family members present at today's visit. HPI 7 Day TCM Pt was admitted to [facility] on 09/28/24, following a fall, for lower extremity pain, and was discharged on 10/04/24 to TCU with debility. She was sent back down to ER on 10/12/24 for chest pains. Discharged home 10/20/24 with diagnosis of chronic renal failure, stage 4. She was discharged home with her friend, Alex. Follows with Cardio, miter sawyer, urologist, going to wound center, neurologist, ortho. Going to wound center for wound on her leg. Had graft done. Still having significant pain at the donor site in her right proximal thigh. Using oxycodone 5 mg four times daily for this. Pt states she has had 3 UTI last year and is working on 3 UTI this year. She is asking if she can get a low dose antibiotic to take to help with that, asked about Macrobid. Advised ehre that this is contraindicated in chronic renal failure. Having increased swelling in her legs, gained 30 pounds over the last couple of weeks, has Cardiology follow up tomorrow breathing has been stable; gets Shortness of Breath with activity, O2 sats at home > 90%. -Pt discharged from [facility] on 10/20/24. -Admitted for: Chronic renal failure, stage 4 Below copied from Huddle: History of Present Illness Chief Complaint: Chest Pain Detail of Chief Complaint: Nausea all day with vomiting x 2 and palpitations Informant: patient Onset/Context/Timing Onset: Today Context: Sudden Onset Timing: Continuous (The nausea is continuous. The palpitations is intermittent) Quality: The not feel well and feels sick to her stomach and HPI narrative Location: GI and cardiac Current Severity: Mild Worsened by: Patient states her nausea is worse when she eats and she has vomited twice Relieved by: Apparently nothing Associated Symptoms Associated Symptoms: No other symptoms. Narrative Narrative: Patient is a 84-year-old woman. She is presently in the TCU floor. She was sent down because of nausea this been continuous since this morning. She has had 2 episodes of vomiting. Emesis without blood or coffee-ground's. She denies abdominal pain. She still feels nauseous. She has had no diarrhea or constipation. She is status post surgery several years ago. She denies chest pain, tightness, heaviness or pressure. She stated twice during the history and physical that she had palpitations, which she described as it is jumping out of my chest again. Patient denies shortness of breath. Patient does complain of chronic back pain that is unchanged from baseline. She is presently in the TCU for after hospitalization for cellulitis of right leg and skin graft. She inform me that Dr. 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 She is on an anticoagulant. Patient did have an EKG performed in the TCU unit. The one that was ordered here will be canceled. She was in A-fib with RVR. Rate is 131. She has a left bundle branch block. She was durations 144 ms. QRS duration 354 ms. There is no acute ischemic changes noted. Discharge Diagnosis (1) Chronic renal failure (CRF), stage 4 (severe): Status: Acute Code(s): N18.4 - Chronic kidney disease, stage 4 (severe) Plan 84 year old female with below past medical history hospitalized for encephalopathy 2/2 acute kidney injury, hyperkalemia, E. Coli UTI, metabolic acidosis, tremor, admitted to TCU with debility, here for rehabilitation, strengthening, prior to discharge home with roommate. Debility - PT/OT. Pain - Tylenol 1000mg tid, Oxycodone 5mg q4 prn pain (1-10), Lidoderm 1 patch td daily. Bowel - Miralax 17gm daily, senna/colace 2 tablets bid, Dulcolax 10mg pr daily prn. Adult immunization - Administer pneumonia vaccine, covid vaccine, flu vaccine as appropriate. DVT prophylaxis - Eliquis. Hyperlipidemia - Atorvastatin 40mg qhs. Cough - Mucinex 600mg bid, Tessalon perles 100mg tid. CKD stage 4 - Dr. Albrecht. Hyperphosphatemia - Phoslo 667mg tidcm. Metabolic acidosis - Sodium bicarb 650mg 4x/day. Atrial fibrillation - Coreg 6.25mg bidcm, Eliquis 2.5mg bid. Coronary artery disease - Coreg 6.25mg bidcm, Eliquis 2.5mg bid, NTG 0.4mg sl q5m prn. Vitamin D deficiency - D3 50mcg daily. Iron deficiency anemia - Ferrous sulfate 325mg daily. Neuropathic pain - Gabapentin 100mg tid. Seizure disorder - Vimpat 100mg bid. Hypothyro (more content not included)... [facility] 10-21-2024 Note HNO ID: [id number] Author: ALEX LACKEY MA Service: ? Author Type: Inspector [employer] Type: Progress Notes Filed: 10/21/2024 13:50 Note Text: TRANSITION CARE MANAGEMENT (TCM) INITIAL CONTACT [employer] Outreach Provider Action/FYI: 7 Day TCM Initial contact with patient post discharge, spoke to patient 10/21/24. Patient identified by name and . TRANSITION CARE MANAGEMENT INITIAL OUTREACH DOCUMENTATION: 10/21/2024 Date of Outreach: Outreach Attempt 1: Contact Made Date of Discharge 10/20/2024 SUMMARY: -Pt discharged from [facility] on 10/20/24. -Admitted for: Chronic renal failure, stage 4 Below copied from Huddle: History of Present Illness Chief Complaint: Chest Pain Detail of Chief Complaint: Nausea all day with vomiting x 2 and palpitations Informant: patient Onset/Context/Timing Onset: Today Context: Sudden Onset Timing: Continuous (The nausea is continuous. The palpitations is intermittent) Quality: The not feel well and feels sick to her stomach and HPI narrative Location: GI and cardiac Current Severity: Mild Worsened by: Patient states her nausea is worse when she eats and she has vomited twice Relieved by: Apparently nothing Associated Symptoms Associated Symptoms: No other symptoms. Narrative Narrative: Patient is a 84-year-old woman. She is presently in the TCU floor. She was sent down because of nausea this been continuous since this morning. She has had 2 episodes of vomiting. Emesis without blood or coffee-ground's. She denies abdominal pain. She still feels nauseous. She has had no diarrhea or constipation. She is status post surgery several years ago. She denies chest pain, tightness, heaviness or pressure. She stated twice during the history and physical that she had palpitations, which she described as it is jumping out of my chest again. Patient denies shortness of breath. Patient does complain of chronic back pain that is unchanged from baseline. She is presently in the TCU for after hospitalization for cellulitis of right leg and skin graft. She inform me that Dr. 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 She is on an anticoagulant. Patient did have an EKG performed in the TCU unit. The one that was ordered here will be canceled. She was in A-fib with RVR. Rate is 131. She has a left bundle branch block. She was durations 144 ms. QRS duration 354 ms. There is no acute ischemic changes noted. Discharge Diagnosis (1) Chronic renal failure (CRF), stage 4 (severe): Status: Acute Code(s): N18.4 - Chronic kidney disease, stage 4 (severe) Plan 84 year old female with below past medical history hospitalized for encephalopathy 2/2 acute kidney injury, hyperkalemia, E. Coli UTI, metabolic acidosis, tremor, admitted to TCU with debility, here for rehabilitation, strengthening, prior to discharge home with roommate. Debility - PT/OT. Pain - Tylenol 1000mg tid, Oxycodone 5mg q4 prn pain (1-10), Lidoderm 1 patch td daily. Bowel - Miralax 17gm daily, senna/colace 2 tablets bid, Dulcolax 10mg pr daily prn. Adult immunization - Administer pneumonia vaccine, covid vaccine, flu vaccine as appropriate. DVT prophylaxis - Eliquis. Hyperlipidemia - Atorvastatin 40mg qhs. Cough - Mucinex 600mg bid, Tessalon perles 100mg tid. CKD stage 4 - Dr. Albrecht. Hyperphosphatemia - Phoslo 667mg tidcm. Metabolic acidosis - Sodium bicarb 650mg 4x/day. Atrial fibrillation - Coreg 6.25mg bidcm, Eliquis 2.5mg bid. Coronary artery disease - Coreg 6.25mg bidcm, Eliquis 2.5mg bid, NTG 0.4mg sl q5m prn. Vitamin D deficiency - D3 50mcg daily. Iron deficiency anemia - Ferrous sulfate 325mg daily. Neuropathic pain - Gabapentin 100mg tid. Seizure disorder - Vimpat 100mg bid. Hypothyroidism - Levothyroxine 125mg daily. Skin irritation - Calmoseptine topical bid. Nutrition - MVI 1 tablet daily. Zinc deficiency - Zinc 50mg daily. The following psychotropic medication was present on admission: Mirtazapine 7.5mg qhs. Psychotropic medication therapy is indicated for a diagnosis of: Depression/Insomnia. Based on my clinical evaluation, continuation of the medication is necessary at this time. Gradual dose reduction plan (select one): ____ GDR will be attempted. Will monitor patient symptoms and behaviors in response to GDR. __x__ GRD contraindicated. Reason contraindicated: Minutes Spent on Discharge: 35 Hospital Course: 84 year old female with below past medical history hospitalized for encephalopathy 2/2 acute kidney injury, hyperkalemia, E. Coli UTI, metabolic acidosis, tremor, admitted to TCU with debility, here for rehabilitation, strengthening, prior to discharge home with roommate. Do you have a hospital follow up appointment with your PCP? Appointment on 10/24/24 with ME. Yes. Remind patient of appointment date, time, and location. If not within 14 calendar days of discharge - please reschedule accordingly. MEDICATIONS: Many (more content not included)... [facility] 10-21-2024 History of Presen t illness Narrative TRANSITION CARE MANAGEMENT (TCM) INITIAL CONTACT Inspector [employer] Outreach Provider Action/FYI: 7 Day TCM Initial contact with patient post discharge, spoke to patient 10/21/24. Patient identified by name and . TRANSITION CARE MANAGEMENT INITIAL OUTREACH DOCUMENTATION: 10/21/2024 Date of Outreach: Outreach Attempt 1: Contact Made Date of Discharge 10/20/2024 SUMMARY: -Pt discharged from [facility] on 10/20/24. -Admitted for: Chronic renal failure, stage 4 Below copied from Huddle: History of Present Illness Chief Complaint: Chest Pain Detail of Chief Complaint: Nausea all day with vomiting x 2 and palpitations Informant: patient Onset/Context/Timing Onset: Today Context: Sudden Onset Timing: Continuous (The nausea is continuous. The palpitations is intermittent) Quality: The not feel well and feels sick to her stomach and HPI narrative Location: GI and cardiac Current Severity: Mild Worsened by: Patient states her nausea is worse when she eats and she has vomited twice Relieved by: Apparently nothing Associated Symptoms Associated Symptoms: No other symptoms. Narrative Narrative: Patient is a 84-year-old woman. She is presently in the TCU floor. She was sent down because of nausea this been continuous since this morning. She has had 2 episodes of vomiting. Emesis without blood or coffee-ground's. She denies abdominal pain. She still feels nauseous. She has had no diarrhea or constipation. She is status post surgery several years ago. She denies chest pain, tightness, heaviness or pressure. She stated twice during the history and physical that she had palpitations, which she described as it is jumping out of my chest again. Patient denies shortness of breath. Patient does complain of chronic back pain that is unchanged from baseline. She is presently in the TCU for after hospitalization for cellulitis of right leg and skin graft. She inform me that Dr. 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 She is on an anticoagulant. Patient did have an EKG performed in the TCU unit. The one that was ordered here will be canceled. She was in A-fib with RVR. Rate is 131. She has a left bundle branch block. She was durations 144 ms. QRS duration 354 ms. There is no acute ischemic changes noted. Discharge Diagnosis (1) Chronic renal failure (CRF), stage 4 (severe): Status: Acute Code(s): N18.4 - Chronic kidney disease, stage 4 (severe) Plan 84 year old female with below past medical history hospitalized for encephalopathy 2/2 acute kidney injury, hyperkalemia, E. Coli UTI, metabolic acidosis, tremor, admitted to TCU with debility, here for rehabilitation, strengthening, prior to discharge home with roommate. Debility - PT/OT. Pain - Tylenol 1000mg tid, Oxycodone 5mg q4 prn pain (1-10), Lidoderm 1 patch td daily. Bowel - Miralax 17gm daily, senna/colace 2 tablets bid, Dulcolax 10mg pr daily prn. Adult immunization - Administer pneumonia vaccine, covid vaccine, flu vaccine as appropriate. DVT prophylaxis - Eliquis. Hyperlipidemia - Atorvastatin 40mg qhs. Cough - Mucinex 600mg bid, Tessalon perles 100mg tid. CKD stage 4 - Dr. Albrecht. Hyperphosphatemia - Phoslo 667mg tidcm. Metabolic acidosis - Sodium bicarb 650mg 4x/day. Atrial fibrillation - Coreg 6.25mg bidcm, Eliquis 2.5mg bid. Coronary artery disease - Coreg 6.25mg bidcm, Eliquis 2.5mg bid, NTG 0.4mg sl q5m prn. Vitamin D deficiency - D3 50mcg daily. Iron deficiency anemia - Ferrous sulfate 325mg daily. Neuropathic pain - Gabapentin 100mg tid. Seizure disorder - Vimpat 100mg bid. Hypothyroidism - Levothyroxine 125mg daily. Skin irritation - Calmoseptine topical bid. Nutrition - MVI 1 tablet daily. Zinc deficiency - Zinc 50mg daily. The following psychotropic medication was present on admission: Mirtazapine 7.5mg qhs. Psychotropic medication therapy is indicated for a diagnosis of: Depression/Insomnia. Based on my clinical evaluation, continuation of the medication is necessary at this time. Gradual dose reduction plan (select one): ____ GDR will be attempted. Will monitor patient symptoms and behaviors in response to GDR. __x__ GRD contraindicated. Reason contraindicated: Minutes Spent on Discharge: 35 Hospital Course: 84 year old female with below past medical history hospitalized for encephalopathy 2/2 acute kidney injury, hyperkalemia, E. Coli UTI, metabolic acidosis, tremor, admitted to TCU with debility, here for rehabilitation, strengthening, prior to discharge home with roommate. Do you have a hospital follow up appointment with your PCP? Appointment on 10/24/24 with ME. Yes. Remind patient of appointment date, time, and location. If not within 14 calendar days of discharge - please reschedule accordingly. MEDICATIONS: Many patients have questions or concerns about their medications once they are home. Were you prescribed any new medications? Yes Were you told to hold any medications? No Were any of your medications discontinued? Yes Do you have any questions about getting or taking your medications? No Your discharge instructions/After visit Summary (AVS) are important in guiding you through the recovery process. Is there anything I might help you understand? No Do you have all the necessary equipment and supplies at home? Yes Medical records from recent hospitalization: Placed for provider to review documented in this encounter [facility] 10-21-2024 Telephone encounter Note Lora from [facility] calls and states that patient was restarted for long-term services and patient will be seen 1 time a week times 4 weeks. Patient was just recently hospitalized and there are a couple of medications that were not on patient discharge paperwork that patient still has in her home. Lisinopril-hydrochlorothiazide 10-12.5 mg Lacosamide 100 mg Also patient was started on Gemtesa [address] Hernandez for overactive bladder. Patient is complaining of burning with urination. Patient is scheduled to see Dr. Capone on Thursday10/24/2024. Lora Najera RN [facility] 10-21-2024 Note Patient Outreach (FA MPWS) JOHNMARI ([id number]) 1940 F Date Time Provider Department 10/21/24 ALEX LACKEY During your visit today, we recorded the following information about you: Alex Lackey MA 10/21/2024 1:50 PM Signed TRANSITION CARE MANAGEMENT (TCM) INITIAL CONTACT Inspector [employer] Outreach Provider Action/FYI: 7 Day TCM Initial contact with patient post discharge, spoke to patient 10/21/24. Patient identified by name and . TRANSITION CARE MANAGEMENT INITIAL OUTREACH DOCUMENTATION: 10/21/2024 Date of Outreach: Outreach Attempt 1: Contact Made Date of Discharge 10/20/2024 SUMMARY: -Pt discharged from [facility] on 10/20/24. -Admitted for: Chronic renal failure, stage 4 Below copied from [place]: History of Present Illness Chief Complaint: Chest Pain Detail of Chief Complaint: Nausea all day with vomiting x 2 and palpitations Informant: patient Onset/Context/Timing Onset: Today Context: Sudden Onset Timing: Continuous (The nausea is continuous. The palpitations is intermittent) Quality: The not feel well and feels sick to her stomach and HPI narrative Location: GI and cardiac Current Severity: Mild Worsened by: Patient states her nausea is worse when she eats and she has vomited twice Relieved by: Apparently nothing Associated Symptoms Associated Symptoms: No other symptoms. Narrative Narrative: Patient is a 84-year-old woman. She is presently in the TCU floor. She was sent down because of nausea this been continuous since this morning. She has had 2 episodes of vomiting. Emesis without blood or coffee-ground's. She denies abdominal pain. She still feels nauseous. She has had no diarrhea or constipation. She is status post surgery several years ago. She denies chest pain, tightness, heaviness or pressure. She stated twice during the history and physical that she had palpitations, which she described as it is jumping out of my chest again. Patient denies shortness of breath. Patient does complain of chronic back pain that is unchanged from baseline. She is presently in the TCU for after hospitalization for cellulitis of right leg and skin graft. She inform me that Dr. 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 She is on an anticoagulant. Patient did have an EKG performed in the TCU unit. The one that was ordered here will be canceled. She was in A-fib with RVR. Rate is 131. She has a left bundle branch block. She was durations 144 ms. QRS duration 354 ms. There is no acute ischemic changes noted. Discharge Diagnosis (1) Chronic renal failure (CRF), stage 4 (severe): Status: Acute Code(s): N18.4 - Chronic kidney disease, stage 4 (severe) Plan 84 year old female with below past medical history hospitalized for encephalopathy 2/2 acute kidney injury, hyperkalemia, E. Coli UTI, metabolic acidosis, tremor, admitted to TCU with debility, here for rehabilitation, strengthening, prior to discharge home with roommate. Debility - PT/OT. Pain - Tylenol 1000mg tid, Oxycodone 5mg q4 prn pain (1-10), Lidoderm 1 patch td daily. Bowel - Miralax 17gm daily, senna/colace 2 tablets bid, Dulcolax 10mg pr daily prn. Adult immunization - Administer pneumonia vaccine, covid vaccine, flu vaccine as appropriate. DVT prophylaxis - Eliquis. Hyperlipidemia - Atorvastatin 40mg qhs. Cough - Mucinex 600mg bid, Tessalon perles 100mg tid. CKD stage 4 - Dr. Albrecht. Hyperphosphatemia - Phoslo 667mg tidcm. Metabolic acidosis - Sodium bicarb 650mg 4x/day. Atrial fibrillation - Coreg 6.25mg bidcm, Eliquis 2.5mg bid. Coronary artery disease - Coreg 6.25mg bidcm, Eliquis 2.5mg bid, NTG 0.4mg sl q5m prn. Vitamin D deficiency - D3 50mcg daily. Iron deficiency anemia - Ferrous sulfate 325mg daily. Neuropathic pain - Gabapentin 100mg tid. Seizure disorder - Vimpat 100mg bid. Hypothyroidism - Levothyroxine 125mg daily. Skin irritation - Calmoseptine topical bid. Nutrition - MVI 1 tablet daily. Zinc deficiency - Zinc 50mg daily. The following psychotropic medication was present on admission: Mirtazapine 7.5mg qhs. Psychotropic medication therapy is indicated for a diagnosis of: Depression/Insomnia. Based on my clinical evaluation, continuation of the medication is necessary at this time. Gradual dose reduction plan (select one): ____ GDR will be attempted. Will monitor patient symptoms and behaviors in response to GDR. __x__ GRD contraindicated. Reason contraindicated: Minutes Spent on Discharge: 35 Hospital Course: 84 year old female with below past medical history hospitalized for encephalopathy 2/2 acute kidney injury, hyperkalemia, E. Coli UTI, metabolic acidosis, tremor, admitted to TCU with debility, here for rehabilitation, strengthening, prior to discharge home with roommate. Do you have a hospital follow up appointment with your PCP? Appointment on (more content not included)... [facility] 10-20-2024 Telephone encounter Note Natalia [facility] called and is notified of providers message. She voices understanding. Analia Gracia RN [facility] 10-20-2024 Miscellaneous Notes Natalia [facility] called and is notified of providers message. She voices understanding. Analia Gracia RN I will follow for [facility] Lizy Capone MD Natalia [facility] called in and reports Pt will be discharged form TCU tomorrow with SN/PT/OT/ST. Pt was admitted for encephalopathy, Chronic Renal Disease, and R lower extremity and thigh wound She is asking if provider will follow. Please call and advise. Analia Gracia RN documented in this encounter [facility] 10-20-2024 Telephone encounter Note I will follow for [facility] Lizy Capone MD [facility] 10-20-2024 Telephone encounter Note Natalia [facility] called in and reports Pt will be discharged form TCU tomorrow with SN/PT/OT/ST. Pt was admitted for encephalopathy, Chronic Renal Disease, and R lower extremity and thigh wound She is asking if provider will follow. Please call and advise. Analia Gracia RN [facility] 10-17-2024 Discharge summary Note Date/Time October 17, 2024 7:03pm [facility] Medical Records Department [address] [place] [id number] Discharge Summary 10/17/24 1852 MR#: [id number] Acct: [id number] Name: MARI LOPEZ Rep #:[id number] : 1940 84 From: Gautam Hardy MD PCP: BROOKLYN Aguillon Status:ADM I N Location: U U18-1 Providers Date of Admission: 10/04/24 Primary Care Physician: BROOKLYN Aguillon Consultations 10/11/24 06:45 Consult: Onc/Wound/certified indoor environmentalist Routine Comment: Reason for Consult:: redness BLE's, edema /skin graft Comments:: Dr Lomax 10/11/24 17:37 Consult: Nephrology Routine Consulting Provider: Qian Albrecht Reason for Consult: Acute on chronic kidney injury. EMERGENT Consult: No MD Notified: Yes Date Notified: 10/12/24 Time Notified: 10:59 Method of Notification: Answering Service Reason For Visit: ENCEPHALOPATHY/JOSE ON CKD & HYPERKALEMIA Diagnosis Discharge Diagnosis (1) Chronic renal failure (CRF), stage 4 (severe): Status: Acute Code(s): N18.4 - Chronic kidney disease, stage 4 (severe) Plan 84 year old female with below past medical history hospitalized for encephalopathy 2/2 acute kidney injury, hyperkalemia, E. Coli UTI, metabolic acidosis, tremor, admitted to TCU with debility, here for rehabilitation, strengthening, prior to discharge home with roommate. * Debility - PT/OT. * Pain - Tylenol 1000mg tid, Oxycodone 5mg q4 prn pain (1-10), Lidoderm 1 patch td daily. * Bowel - Miralax 17gm daily, senna/colace 2 tablets bid, Dulcolax 10mg pr daily prn. * Adult immunization - Administer pneumonia vaccine, covid vaccine, flu vaccine as appropriate. * DVT prophylaxis - Eliquis. * Hyperlipidemia - Atorvastatin 40mg qhs. * Cough - Mucinex 600mg bid, Tessalon perles 100mg tid. * CKD stage 4 - Dr. Albrecht. * Hyperphosphatemia - Phoslo 667mg tidcm. * Metabolic acidosis - Sodium bicarb 650mg 4x/day. * Atrial fibrillation - Coreg 6.25mg bidcm, Eliquis 2.5mg bid. * Coronary artery disease - Coreg 6.25mg bidcm, Eliquis 2.5mg bid, NTG 0.4mg sl q5m prn. * Vitamin D deficiency - D3 50mcg daily. * Iron deficiency anemia - Ferrous sulfate 325mg daily. * Neuropathic pain - Gabapentin 100mg tid. * Seizure disorder - Vimpat 100mg bid. * Hypothyroidism - Levothyroxine 125mg daily. * Skin irritation - Calmoseptine topical bid. * Nutrition - MVI 1 tablet daily. * Zinc deficiency - Zinc 50mg daily. The following psychotropic medication was present on admission: Mirtazapine 7.5mg qhs. Psychotropic medication therapy is indicated for a diagnosis of: Depression/Insomnia. Based on my clinical evaluation, continuation of the medication is necessary at this time. Gradual dose reduction plan (select one): ____ GDR will be attempted. Will monitor patient symptoms and behaviors in response to GDR. __x__ GRD contraindicated. Reason contraindicated: Medications at Discharge Home Medications levonorgestrel (Mirena) 1 mcg intrauterine ONCE . 07/25/21 nitroglycerin 0.4 mg sublingual tablet 0.4 mg sublingual Q5M PRN chest pain #30 tabs 06/27/22 polyethylene glycol 3350 17 gram oral powder packet 17 g PO DAILY bowel mobility#30 ea 06/09/23 fluorometholone 0.1 % eye drops,suspension 1 drp ophthalmic (eye) BID eyes 02/24/24 atorvastatin 40 mg tablet 40 mg PO QHS cholesterol 05/18/24 levothyroxine 125 mcg tablet 125 mcg PO DAILY thyroid 05/18/24 calcium acetate(phosphat bind) 667 mg capsule 667 mg PO TIDCM supplement #1 cap 06/09/24 sennosides 8.6 mg-docusate sodium 50 mg tablet (Stimulant Laxative Plus) 2 tab PO BID constipation #1 TAB 06/09/24 cholecalciferol (vitamin D3) 25 mcg (1,000 unit) capsule 50 mcg PO DAILY supplement 09/05/24 carvedilol 6.25 mg tablet 6.25 mg PO BID Blood pressure 09/28/24 multivitamin 1 tab PO DAILY Supplement 09/28/24 zinc gluconate 50 mg tablet 50 mg PO DAILY supplement 09/28/24 gabapentin 100 mg capsule 100 mg PO TID pain 10/04/24 Arthritis Pain Compound 3 click topical BID 30 days #60 GMS 10/17/24 acetaminophen 500 mg tablet 1,000 mg (2 x 500 mg) PO TID #0 tabs 10/17/24 apixaban 5 mg tablet (Eliquis) 2.5 mg (1/2 x 5 mg) PO BID 30 days #30 tabs 10/17/24 ferrous sulfate 325 mg (65 mg iron) tablet (FeroSul) 325 mg PO DAILY@1200 30 days #30 tabs 10/17/24 furosemide 40 mg tablet 40 mg PO DAILY #0 tabs 10/17/24 lidocaine 5 % topical patch 1 patch topical DAILY 30 days #30 ea 10/17/24 melatonin 3 mg tablet 3 mg PO QHS #0 tabs 10/17/24 mirtazapine 15 mg tablet 7.5 mg (1/2 x 15 mg) PO 2200 30 days #15 tabs 10/17/24 oxycodone 5 mg tablet 5 mg PO Q4H PRN PRN Pain Score 1-10 Or Pre Pt/Ot 7 days #42 tabs 10/17/24 sodium bicarbonate 650 mg tablet 650 mg PO 4X/DAY 30 days #120 tabs 10/17/24 Hospital Course Operations None Procedures EGD Summary of Care Provided Minutes Spent on Discharge: 35 Hospital Course: 84 year old female with below past medical history hospitalized for encephalopathy 2/2 acute kidney injury, hyperkalemia, E. Coli UTI, metabolic acidosis, tremor, admitted to TCU with debility, here for rehabilitation, strengthening, prior to discharge home with roommate. 10/14/2024 Dr. Cruz EGD: Impressions : - Normal esophagus. - Non-bleeding gastric ulcers with no stigmata of bleeding. 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 Treated with a heater probe. - No specimens collected. Recommendations : - Return patient to referring hospital for ongoing care. - Resume previous diet. - Continue present medications. Discharge home with friend 10/20/2024, [facility] PT/OT/SN. Physical Exam Const alert General Appearance: cooperative HEENT normocephalic Eyes PERRL and EOMs intact bilaterally Neck supple, no JVD and no carotid bruits Resp normal respiratory effort, normal air movement and clear to auscultation bilaterally Cardio regular rate and regular rhythm GI normal to inspection, nondistended, normoactive bowel sounds, non-tender and non-distended Extremity normal capillary refill General Extremity: Negative for edema Skin no rashes or lesions noted General Skin Exam: no breakdown Psych affect normal Appearance: appropriate Weight / BMI Weight Weight: 122.198 kg Body Mass Index (BMI) 49.2 ABG / Lab / Microbiology Data 10/13/24 05:37 10/12/24 05:26 Microbiology: Microbiology 10/13/24 12:45 Stool Stool Occult Blood (ALEC) - Final Occult Blood Positive 10/06/24 17:20 Urine, Catheterized Urine Culture - Final Vancomycin Resist. E. faecalis D/C Instructions Discharge Activity: Return to Normal Activity, May Shower and Use Walker Weight Bearing Status: Weight bearing as tolerated Call your doctor if you observe: Fever of 101 or Higher, Inability to urinate, Inability to have a bowel movement, Shortness of breath, Dizziness, Fainting spells, Swelling in the ankles, Chest pain and Uncontrolled pain DC O2, CPAP, BIPAP Needs Home O2 Discharge instructions: No Additional Instructions: Discharge home with friend 10/20/2024, [facility] PT/OT/SN. Meaningful Use Info Meaningful Use Meaningful Use Diagnoses (Choose all that apply): None applicable Discharge Plan Admission Admit Date/Time: 10/04/24 14:29 Primary Reason for Your Visit: Debility. Attending Provider: Gautam Hardy Chi Primary Care Provider: Miryam Orozco Consulting Providers: Qian Albrecht Instructions Additional Instructions / Restrictions: Discharge home with friend 10/20/2024, [facility] PT/OT/SN. Discharge Orders/Prescriptions Prescriptions: New Arthritis Pain Compound 3 click topical BID 30 Days Qty: 60 0RF furosemide 40 mg Tablet 40 mg PO DAILY Qty: 0 0RF melatonin 3 mg Tablet 3 mg PO QHS Qty: 0 0RF acetaminophen 500 mg Tablet 1,000 mg PO TID Qty: 0 0RF sodium bicarbonate 650 mg Tablet 650 mg PO 4X/DAY 30 Days Qty: 120 0RF ferrous sulfate [FeroSul] 325 mg (65 mg iron) Tablet 325 mg PO DAILY@1200 30 Days Qty: 30 0RF lidocaine 5 % Adhesive Patch,Medicated 1 patch topical DAILY 30 Days Qty: 30 0RF Protocol: *Topical Application Instructions APPLICATION INSTRUCTIONS: affected area mirtazapine 15 mg Tablet 7.5 mg PO 2200 30 Days Qty: 15 0RF oxycodone 5 mg Tablet 5 mg PO Q4H PRN PRN (Reason: Pain Score 1-10 Or Pre Pt/Ot) 7 Days Qty: 42 0RF Eliquis 5 mg Tablet 2.5 mg PO BID 30 Days Qty: 30 0RF Continued Mirena 20 mcg/24 hours (7 yrs) 52 mg intrauterine device 1 mcg intrauterine ONCE cholecalciferol (vitamin D3) 25 mcg (1,000 unit) capsule 50 mcg PO DAILY nitroglycerin 0.4 mg tablet, sublingual 0.4 mg sublingual Q5M PRN (Reason: chest pain) Qty: 30 1RF Rx Instructions: do not exceed 3 doses per episode fluorometholone 0.1 % drops,suspension 1 drp ophthalmic (eye) BID carvedilol 6.25 mg tablet 6.25 mg PO BID multivitamin Tablet 1 tab PO DAILY zinc gluconate 50 mg tablet 50 mg PO DAILY gabapentin 100 mg capsule 100 mg PO TID polyethylene glycol 3350 17 gram Powder In Packet 17 g PO DAILY Qty: 30 0RF atorvastatin 40 mg tablet 40 mg PO QHS levothyroxine 125 mcg tablet 125 mcg PO DAILY Patient Comments: TAKE 1 TABLET BY MOUTH ONCE DAILY. TAKE ON EMPTY STOMACH. FOR THYROID. calcium acetate(phosphat bind) 667 mg Capsule 667 mg PO TIDCM Qty: 1 0RF sennosides-docusate sodium [Stimulant Laxative Plus] 8.6-50 mg Tablet 2 tab PO BID Qty: 1 0RF Discontinued lacosamide 100 mg tablet 100 mg PO BID furosemide 40 mg tablet 40 mg PO Q OTHER DAY Eliquis 5 mg Tablet 2.5 mg PO BID Qty: 0 0RF sodium bicarbonate 650 mg Tablet 650 mg PO 4X/DAY Qty: 0 0RF lidocaine 5 % Adhesive Patch,Medicated 1 patch topical DAILY Qty: 0 0RF Protocol: *Topical Application Instructions APPLICATION INSTRUCTIONS: left knee gabapentin 300 mg capsule 100 mg PO TID Qty: 1 0RF ferrous sulfate 324 mg (65 mg iron) tablet,delayed release (DR/EC) 324 mg PO DAILY acetaminophen 325 mg Tablet 650 mg PO TID Qty: 1 0RF magnesium hydroxide 400 mg/5 mL Suspension 30 ml PO X1 PRN (Reason: Constipation) Qty: 30 0RF mirtazapine 15 mg Tablet 7.5 mg PO 2000 Qty: 1 0RF furosemide [Lasix] 20 mg tablet 20 mg PO DAILY doxycycline monohydrate 100 mg capsule 100 mg PO BID acetaminophen [Tylenol Extra Strength] 500 mg tablet 1,000 mg PO TID Referrals / Follow Up: Miryam Orozco NP-C [Primary Care Provider] - Gonzalo Lomax MD [Med Staff - Active Staff] - 10/24/24 9:15 am Disposition Disposition (needs filled in before D/C Order can be placed): Home Health Service 10/17/241902 <Electronically signed by Gautam Hardy MD> Cosigner Signature (if applicable): CC: BROOKLYN Orozco; Dr. Gautam Hardy MD~ Signed [facility] Work Phone: [phone] 472-611907-14-2025 History and physical note Author Gautam Hardy [facility] Note Date/Time October 17, 2024 5:10 pm [facility] Medical Records Department [address] [place] [address] History & Physical Exam 10/04/241910 MR#: [id number] Acct: [id number] Name: MARI LOPEZ Rep #:[id number] : 1940 84 From: Gautam Hardy MD PCP: Miryam Orozco, [employer]OOK[employer] MECH[employer]IC-C Status:ADM I N Location: TCU [place] [address] HPI - General General Date of Admission: 10/04/24 Date of Service: 10/04/24 Chief Complaint: Here for rehabilitation. HPI Narrative MARI LOPEZ, is a 84 Female who presents with followin09/28/2024 [facility] ED lower extremity injury. Weak, cannot walk, legs give out. Physical therapy twice daily, EMS called, new tremor, new difficulty finding words. K 6.0, BUN 111, Creatinine 4.15, Magnesium 3.1, AST 289, ALT 351, Alk phos 130, Troponin 44. EKG atrial fibrillation, peaked T waves. 09/28/2024 Admit [facility]. FeNa, Renal ultrasound, nephrology for acute kidney injury. PT/OT/CM. Monitor hyperkalemia. IV fluids for JOSE, Transaminitis. 09/29/2024 Tremulous, weak. Creatinine improved from 4.15 to 3.78 with IV fluids. Renal ultrasound negative, Hold Furosemide for JOSE. Confusion resolved, CT head negative. Meropenem IV for urinary tract infection. Hold Gabapentin for tremor. 09/30/2024 Feeling better, Tremor resolved, left knee pain. JOSE 2/2 prerenal +/- ATN. 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 Hold Gabapentin, continue IV fluids for tremor. Tylenol, Lidoderm, Oxycodone for left knee pain. 10/01/2024 Feeling great, plan discharge to TCU. Continue IV fluids for JOSE. Bicarb drip for metabolic acidosis. Stop Meropenem, start Cipro for E. Coli UTI. PT/OT SNF. Tremor 2/2 Gabapentin toxicity/JOSE. X-ray left knee okay. 10/02/2024 Feeling better, moving bowels. PT/OT TCU. 10/03/2024 Feeling great, anxious to get to rehab. Baseline creatinine 1.7 to 2, Creatinine 2.84, stop Bicarb drip. Renal ultrasound okay. Cipro 250mg po bid for E. Coli UTI. PT/OT for TCU. 10/04/2024 Admit to TCU with debility, here for rehabilitation, strengthening, prior to discharge home with roommate. [facility] Medical History (Updated 10/04/24 @ 19:[address] Gautam Hardy MD) Hypothyroidism Lymphedema Insomnia Obstructive sleep apnea Macrocytic anemia PAF (paroxysmal atrial fibrillation) Wears glasses Post-menopausal [...] Osteoarthritis Venous insufficiency of both lower extremities Pulmonary hypertension Diastolic dysfunction Elevated parathyroid hormone Metabolic acidosis Preop cardiovascular exam H/O hemorrhoids (HFpEF) heart failure with preserved ejection fraction History of pulmonary embolus (PE) COVID-19 (01/19/21) MRSA (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 Abdominal pain DVT (deep venous thrombosis) GERD (gastroesophageal reflux disease) Essential (primary) hypertension Incomplete left bundle branch [...] DAILY bowel m obility #30 ea 06/09/23 09/28/24 Rx oral powder packet fluorometholone 0.1 % eye 1 drp ophthalmic (eye) BID e yes 02/24/24 09/27/24 History drops,suspension atorvastatin 40 mg tablet 40 mg PO QHS cholesterol 03/3010/03/24 History ferrous sulfate 324 mg (65 mg 324 mg PO DAILY Suppleme nt 05/18/24 10/03/24 History iron) tablet,delayed release levothyroxine 125 mcg tablet 125 mcg PO DAILY thyroid 05/18/24 10/04/24 History acetaminophen 325 mg tablet 650 mg (2 x 325 mg) PO TID pain #1 06/09/24 09/27/24 Rx TAB bisacodyl 10 mg rectal suppository 10 mg SD X1 PRN Con stipation #1 ea 06/09/24 Unknown Rx calcium acetate(phosphat bind) 667 667 mg PO TIDCM sup plement #1 cap 06/09/24 10/04/24 Rx mg capsule magnesium hydroxide 400 mg/5 mL 30 ml PO X1 PRN Consti pation #30 mL 06/09/24 09/28/24 Rx oral suspension mirtazapine 15 mg tablet 7.5 mg (1/2 x 15 mg) PO 2000 06/09/24 09/28/24 Rx antidepressant #1 TAB sennosides 8.6 mg-docusate sodium 2 tab PO BID constip ation #1 TAB 06/09/24 Unknown Rx 50 mg tablet (Stimulant Laxative Plus) cholecalciferol (vitamin D3) 25 50 mcg PO DAILY supple ment 09/05/24 09/27/24 History mcg (1,000 unit) capsule furosemide 40 mg tablet 40 mg PO Q OTHER DAY Diureti c 09/05/24 09/28/24 History Held on 10/04/24. Instructions: Until restarted by nephrology lacosamide 100 mg tablet 100 mg PO BID Seizure contro l 09/05/24 10/04/24 History benzonatate 100 mg capsule 100 mg PO TID cough 5 09/27/24 History carvedilol 6.25 mg tablet 6.25 mg PO BID Blood pressur e 09/28/24 10/04/24 History guaifenesin 600 mg tablet, 600 mg PO BID Cough 5 09/28/24 History extended release 12 hr multivitamin 1 tab PO DAILY Supplement 09/28/24 History zinc gluconate 50 mg tablet 50 mg PO DAILY supplement 09/28/24 09/28/24 History apixaban 5 mg tablet (Eliquis) 2.5 mg (1/2 x 5 mg) PO BID blood 10/04/24 10/04/24 Rx thinner #0 tabs gabapentin 100 mg capsule 100 mg PO TID pain 10/04/24 10/30/23 History gabapentin 300 mg capsule 100 mg (0.3333 x 300 mg) PO TID 10/04/24 09/28/24 Rx Neuropathy #1 cap lidocaine 5 % topical patch 1 patch topical DAILY pain #0 ea 10/04/24 10/04/24 Rx sodium bicarbonate 650 mg tablet 650 mg PO 4X/DAY supp lement #0 tabs 10/04/24 10/04/24 Rx Allergy/AdvReac Type Severity Reaction Status Date / Time cefazolin (From Kefzol) Allergy Severe hives/difficulty Verified 09/28/24 22:23 swallowing ibuprofen Allergy Unknown Rash Verified 09/28/24 22:23 peanut Allergy Anaphylaxis Verified 09/28/24 22:23 Sulfa (Sulfonamide Allergy Unknown Verified 09/28/24 22:23 Antibiotics) sulfamethoxazole (From Allergy Other Verified 09/28/24 22:23 Bactrim) trimethoprim (From Bactrim) Allergy Other Verified 09/28/24 22:23 Family History Mother Cancer uterine Father No [...] Type: coffee Number of servings: 3 ROS Constitutional Constitutional: Reports weakness; Denies chills, fever(s) or weight gain ENT HEENT: Denies headache(s), nasal congestion or nasal discharge Cardiovascular Cardiovascular: Denies chest pain or palpitations Respiratory/Chest Respiratory/Chest: Denies cough, excessive phlegm production or shortness of breath with exertion Gastrointestinal Gastrointestinal: Denies abdominal pain, nausea or vomiting Genitourinary Genitourinary: Denies dysuria Musculoskeletal Musculoskeletal: Denies joint pain or joint swelling Integumentary Integumentary: Denies rash or wounds Neurologic Neurologic: Denies focal weakness, numbness or tingling Psychiatric Psychiatric: Denies anxiety, auditory hallucinations, depression, homicidal ideation or suicidal ideation Vital Signs Vital Signs Vital Signs: 10/04/24 14:33 10/04/24 14:33 10/04/24 15:35 Temperature 97.7 F L Temperature Source Oral Pulse Rate 111 H Pulse Rhythm Regular Pulse Strength Normal (2+) Normal (2+) Respiratory Rate 20 H 16 Respiratory Depth Normal Respiratory Pattern Normal Blood Pressure 101/63 Blood Pressure Mean 75 Blood Pressure Source Blood Pressure Position Blood Pressure Location Pulse Ox 96 Oxygen Delivery Method Room Air Room Air 10/04/24 18:07 Temperature Temperature Source Pulse Rate 114 H Pulse Rhythm Pulse Strength Respiratory Rate 18 Respiratory Depth Respiratory Pattern Blood Pressure 136/75 H Blood Pressure Mean 95 Blood Pressure Source Monitor Blood Pressure Position Sitting Blood Pressure Location Left Arm Pulse Ox 94 Oxygen Delivery Method Room Air Weight Weight: 120.741 kg Body Mass Index (BMI) 48.6 Physical Exam Const alert General Appearance: cooperative HEENT normocephalic Eyes PERRL and EOMs intact bilaterally Neck supple, no JVD and no carotid bruits Resp normal respiratory effort, normal air movement and clear to auscultation bilaterally Cardio regular rate and regular rhythm GI normal to inspection, nondistended, normoactive bowel sounds, non-tender and non-distended Extremity normal capillary refill General Extremity: Negative for edema Skin no rashes or lesions noted General Skin Exam: no breakdown Psych affect normal Appearance: appropriate Assessment & Plan Assessment/Plan (1) Debility: (2) Toxic metabolic encephalopathy: (3) Metabolic acidosis: (4) Left knee pain: (5) Tremulousness: (6) Hyperkalemia: (7) UTI (urinary tract infection): (8) Bilateral knee pain: (9) DVT (deep venous thrombosis): (10) Seizure disorder: (11) Hypothyroidism: QUALIFIERS: Hypothyroidism type: unspecified Qualified Code(s): E03.9 - Hypothyroidism, unspecified (12) Lymphedema: (13) (HFpEF) heart failure with preserved ejection fraction: (14) Obstructive sleep apnea: (15) Essential (primary) hypertension: (16) BMI 45.0-49.9, adult: (17) Coronary artery disease: (18) Hyperlipidemia: (19) Iron deficiency anemia: (20) GERD (gastroesophageal reflux disease): (21) Appetite loss: (22) Insomnia: QUALIFIERS: Insomnia type: unspecified Qualified Code(s): G47.00 - Insomnia, unspecified (23) Atrial fibrillation: PLAN: Plan 84 year old female with below past medical history hospitalized for encephalopathy 2/2 acute kidney injury, hyperkalemia, E. Coli UTI, metabolic acidosis, tremor, admitted to TCU with debility, here for rehabilitation, strengthening, prior to discharge home with roommate. * Debility - PT/OT. * Pain - Tylenol 1000mg tid, Oxycodone 5mg q4 prn pain (1-10), Lidoderm 1 patch td daily. * Bowel - Miralax 17gm daily, senna/colace 2 tablets bid, Dulcolax 10mg pr daily prn. * Adult immunization - Administer pneumonia vaccine, covid vaccine, flu vaccine as appropriate. * DVT prophylaxis - Eliquis. * Hyperlipidemia - Atorvastatin 40mg qhs. * Cough - Mucinex 600mg bid, Tessalon perles 100mg tid. * CKD stage 4 - Dr. Albrecht. * Hyperphosphatemia - Phoslo 667mg tidcm. * Metabolic acidosis - Sodium bicarb 650mg 4x/day. * Atrial fibrillation - Coreg 6.25mg bidcm, Eliquis 2.5mg bid. * Coronary artery disease - Coreg 6.25mg bidcm, Eliquis 2.5mg bid, NTG 0.4mg sl q5m prn. * Vitamin D deficiency - D3 50mcg daily. * Iron deficiency anemia - Ferrous sulfate 325mg daily. * Neuropathic pain - Gabapentin 100mg tid. * Seizure disorder - Vimpat 100mg bid. * Hypothyroidism - Levothyroxine 125mg daily. * Skin irritation - Calmoseptine topical bid. * Nutrition - MVI 1 tablet daily. * Zinc deficiency - Zinc 50mg daily. The following psychotropic medication was present on admission: Mirtazapine 7.5mg qhs. Psychotropic medication therapy is indicated for a diagnosis of: Depression/Insomnia. Based on my clinical evaluation, continuation of the medication is necessary at this time. Gradual dose reduction plan (select one): ____ GDR will be attempted. Will monitor patient symptoms and behaviors in response to GDR. __x__ GRD contraindicated. Reason contraindicated: 10/04/241937 <Electronically signed by Gautam Hardy MD> Cosigner Signature (if applicable): CC: BROOKLYN Orozco; Dr. Gautam Hardy MD~ Signed ADDENDUM by Dr. Gautam Hardy MD on 10/06/24 at 0730 Addendum Insomnia - Already on Mirtazapine 7.5mg qhs, add Melatonin 3mg qhs. 10/06/24729<Electronically signed by Gautam Hardy MD> Cosigner Signature (if applicable): cc: BROOKLYN Orozco; Dr. Gautam Hardy MD ~* Signed ADDENDUM by Dr. Gautam Hardy MD on 10/11/24 at 0749 Addendum Right lower extremity cellulitis - Doppler ultrasound right lower extremity to rule out dvt, start Clindamycin 300mg tid x 7 days, Doxycycline 100mg bid x 7 days. 10/11/24 0749<Electronically signed by Gautam Hardy MD> Cosigner Signature (if applicable): cc: BROOKLYN Orozco; Dr. Gautam Hardy MD ~* Signed ADDENDUM by Dr. Gautam Hardy MD on 10/17/24 at 1710 Addendum Edema - Lasix 40mg daily. 10/17/24 171<Electronically signed by Gautam Hardy MD> Cosigner Signature (if applicable): cc: BROOKLYN Orozco; Dr. Gautam Hardy MD ~* Signed [facility] Work Phone: 1(716) 638-512607-14-2025 [facility]07-11-2025 Consult note Author Etienne Humphrey [facility] Note Date/Time October 14, 2024 4:28 pm [facility] Medical Records Department [address] [place], [place] [address] [address] Anesthesia Postop Eval II 10/14/241627 MR#: [id number] Acct: [id number] Name: MARI LOPEZ Rep #:[id number] : 1940 84 From: Etienne CARDOSO PCP: BROOKLYN Aguillon Status:REG S DC Y Race: C Location: [place] [address] Anesthesia Postop Eval I Sum Postop Eval Completion status Anesthesia document: Postop Eval 1 completed: Yes Anesthesia Postop Eval I Summary Anesthesia Postop Eval I Summary: Anesthesia Postop Eval I: Assessment Summary Airway patent Yes 10/14/24 16:21 ACTUARY MANAGER.[email or web address] Spontaneous unlabored Yes 10/14/24 16:21 ACTUARY MANAGER.MDOT respirations Mental status Awake,Calm 10/14/24 16:21 ACTUARY MANAGER.MDOT nausea No 10/14/24 16:21 ACTUARY MANAGER.MDOT Vomiting No 10/14/24 16:21 ACTUARY MANAGER.MDOT Anesthesia Postop Eval I: Fluid Summary Crystalloid volume administer 100 10/14/24 16:21 ACTUARY MANAGER.MDOT (ml) Colloids volume administered ( ml) Blood Product volume administered (ml) Total IV fluid infused 100 10/14/24 16:21 ACTUARY MANAGER.MDOT Anesthesia Postop Eval I: Summary Notes Anesthesia Complication No 10/14/24 16:21 ACTUARY MANAGER.MDOT Anesthesia Complication Comment: Post-operative progress note Anesthesia: Postop Eval II Evaluation Mental status: Awake and Calm Pain Level: 0 nausea: No Vomiting: No Complications Anesthesia Complication: No 10/14/241627 <Electronically signed by Etienne Humphrey CRNA> Date _ Etienne Nguyenignfamilia Signature: Date CC: ~ Signed [facility] Work Phone: 1(825) 764-684007-11-2025 Consult note Author Etienne Humphrey [facility] Note Date/Time October 14, 2024 4:21 pm [facility] Medical Records Department [address] [place] [address] Anesthesia Postop Eval I 10/14/24 1620 MR#: [id number] Acct: [id number] Name: MARI LOPEZ Rep #:[id number] : 1940 84 From: Etienne CARDOSO PCP: BROOKLYN Aguillon Status:REG S DC Y Race: C Location: [place] [address] Anesthesia: Postop Eval I Current Vital Signs Temperature: 97 F Pulse Rate: 126 Blood Pressure: 113/88 Respiratory Rate: 16 Pulse Ox: 100 Oxygen Delivery Method: Nasal Cannula Oxygen Flow Rate (L/min): 4 Assessment Airway patent: Yes Spontaneous unlabored respirations: Yes Mental status: Awake and Calm nausea: No Vomiting: No Anesthesia Complication: No Fluid Hydration Crystalloid volume administer (ml): 100 Total IV fluid infused: 100 Progress Note Anesthesia document: Postop Eval 1 completed: Yes 10/14/241620 <Electronically signed by Etienne Humphrey CRNA> Date _ Etienne Nguyenignfamilia Signature: Date CC: ~ Signed [facility] Work Phone: 1(772) 814-293007-11-2025 History and physical note Author William Cruz [facility] Note Date/Time October 14, 2024 4:04 pm [facility] Medical Records Department [address] [place] [address] History & Physical Exam 10/14/24 1556 MR#: [id number] Acct: [id number] Name: MARI LOPEZ Rep #:[id number] : 1940 84 From: William Cruz DO PCP: BROOKLYN Aguillon Status:REG S DC Location: [place] [address] HPI - General HPI Narrative 84 F who presents To the rehab after recent hospital stay. I was called to see the patient due to decrease in hemoglobin and patient is on anticoagulation withEliquis twice a day for atrial fibrillation. [facility] Medical History VRE (vancomycin resistant enterococcus) culture positive Hypothyroidism Lymphedema Insomnia Obstructive sleep apnea Macrocytic anemia PAF (paroxysmal atrial fibrillation) Wears glasses Post-menopausal [...] Osteoarthritis Venous insufficiency of both lower extremities Pulmonary hypertension Diastolic dysfunction Elevated parathyroid hormone Metabolic acidosis Preop cardiovascular exam H/O hemorrhoids (HFpEF) heart failure with preserved ejection fraction History of pulmonary embolus (PE) COVID-19 (01/19/21) MRSA (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 Abdominal pain DVT (deep venous thrombosis) GERD (gastroesophageal reflux disease) Essential (primary) hypertension Incomplete left bundle branch [...] DAILY bowel m obility #30 ea 06/09/23 09/28/24 Rx oral powder packet fluorometholone 0.1 % eye 1 drp ophthalmic (eye) BID e yes 02/24/24 09/27/24 History drops,suspension atorvastatin 40 mg tablet 40 mg PO QHS cholesterol 03/3010/03/24 History ferrous sulfate 324 mg (65 mg 324 mg PO DAILY Suppleme nt 05/18/24 10/03/24 History iron) tablet,delayed release levothyroxine 125 mcg tablet 125 mcg PO DAILY thyroid 05/18/24 10/04/24 History acetaminophen 325 mg tablet 650 mg (2 x 325 mg) PO TID pain #1 06/09/24 09/27/24 Rx TAB calcium acetate(phosphat bind) 667 667 mg PO TIDCM sup plement #1 cap 06/09/24 10/04/24 Rx mg capsule magnesium hydroxide 400 mg/5 mL 30 ml PO X1 PRN Consti pation #30 mL 06/09/24 09/28/24 Rx oral suspension mirtazapine 15 mg tablet 7.5 mg (1/2 x 15 mg) PO 2000 06/09/24 09/28/24 Rx antidepressant #1 TAB sennosides 8.6 mg-docusate sodium 2 tab PO BID constip ation #1 TAB 06/09/24 Unknown Rx 50 mg tablet (Stimulant Laxative Plus) cholecalciferol (vitamin D3) 25 50 mcg PO DAILY supple ment 09/05/24 09/27/24 History mcg (1,000 unit) capsule furosemide 40 mg tablet 40 mg PO Q OTHER DAY Diureti c 09/05/24 09/28/24 History Held on 10/04/24. Instructions: Until restarted by nephrology lacosamide 100 mg tablet 100 mg PO BID Seizure contro l 09/05/24 10/04/24 History carvedilol 6.25 mg tablet 6.25 mg PO BID Blood pressur e 09/28/24 10/14/24 07:45 History multivitamin 1 tab PO DAILY Supplement 09/28/24 History zinc gluconate 50 mg tablet 50 mg PO DAILY supplement 09/28/24 09/28/24 History apixaban 5 mg tablet (Eliquis) 2.5 mg (1/2 x 5 mg) PO BID blood 10/04/24 10/04/24 Rx Held on 10/14/24. thinner #0 tabs Instructions: on hold for procedure gabapentin 100 mg capsule 100 mg PO TID pain 10/04/24 10/14/24 History gabapentin 300 mg capsule 100 mg (0.3333 x 300 mg) PO TID 10/04/24 09/28/24 Rx Neuropathy #1 cap lidocaine 5 % topical patch 1 patch topical DAILY pain #0 ea 10/04/24 10/14/24 07:45 Rx sodium bicarbonate 650 mg tablet 650 mg PO 4X/DAY supp lement #0 tabs 10/04/24 10/04/24 Rx acetaminophen 500 mg tablet 1,000 mg PO TID 10/14/24 0 10/14/24 History (Tylenol Extra Strength) doxycycline monohydrate 100 mg 100 mg PO BID 10/14/24 Unknown History capsule furosemide 20 mg tablet (Lasix) 20 mg PO DAILY 5 Unknown History Allergy/AdvReac Type Severity Reaction Status Date / Time cefazolin (From Kefzol) Allergy Severe hives/difficulty Verified 09/28/24 22:23 swallowing ibuprofen Allergy Unknown Rash Verified 09/28/24 22:23 peanut Allergy Anaphylaxis Verified 09/28/24 22:23 Sulfa (Sulfonamide Allergy Unknown Verified 09/28/24 22:23 Antibiotics) sulfamethoxazole (From Allergy Other Verified 09/28/24 22:23 Bactrim) trimethoprim (From Bactrim) Allergy Other Verified 09/28/24 22:23 Family History Mother Cancer uterine Father No [...] Number of servings: 3 ROS ROS Narrative negative except above Vital Signs Vital Signs Vital Signs: 10/14/24 13:52 10/14/24 13:52 10/14/24 14:24 Temperature 99.7 F H 99.7 F H Temperature Source Temporal Pulse Rate 72 72 Respiratory Rate 17 17 Respiratory Pattern Normal Blood Pressure 115/75 115/75 Blood Pressure Mean 88 Blood Pressure Source Monitor Blood Pressure Position Semi-Fowlers Blood Pressure Location Left Forearm Pulse Ox 93 93 Oxygen Delivery Method Room Air Weight Weight: 260 lb Body Mass Index (BMI) 47.5 Physical Exam Const alert, oriented x3, no apparent distress and healthy appearing General Appearance: cooperative GI normal to inspection, nondistended, normoactive bowel sounds, soft to palpation,non-tender and non-distended Percussion: normal to percussion Rectal Exam: deferred Assessment & Plan Assessment/Plan (1) Acute on chronic anemia: PLAN: Patient will undergo an egd to evaluate the upper GI tract 10/14/24 1604 <Electronically signed by William Cruz DO> Cosigner Signature (if applicable): CC: BROOKLYN Orozco; William Cruz DO~ Signed [facility] Work Phone: 1(492) 303-578607-11-2025 Procedure [facility] 10-14-2024 Procedure [facility]07-11-2025 Consult note Author Shlomo Hernandez [facility] Note Date/Time October 14, 2024 2:24 pm [facility] Medical Records Department [address] [place] [address] Pre-Anesthesia Evaluation 10/14/24 1424 MR#: [id number] Acct: [id number] Name: MARI LOPEZ Rep #:[id number] : 1940 84 From: Shlomo Hernandez MD PCP: BROOKLYN Aguillon Status:REG S DC Y Race: C Location: [place] [address] ASA Classification* ASA Classification ASA Classification: 3 [...] risk assessments. Anesthesia Type Anesthesia Type: MAC Anesthesia Focused Assessment* Temperature: 99.7 F Pulse Rate: 72 Blood Pressure: 115/75 Respiratory Rate: 17 Pulse Ox: 93 Airway Assessment Mouth opens: >3 cm Mallampati Score: II Labs Anesthesia Preop lab: CBC WBC 6.6 K/mm3 (4.4-11.0) 10/12/24 14:50 10/12/24 RBC 2.85 M/mm3 (4.2-5.4) L 10/12/24 14:50 10/12/24 Hgb 8.3 g/dL (12.0-15.0) L 10/13/24 05:37 10/13/24 Hct 28.5 % (37-47) L 10/13/24 05:37 10/13/24 Plt Count 183 K/mm3 (150-450) 10/12/24 14:50 10/12/24 CHEMISTRY Potassium 4.4 mmol/L (3.3-5.1) 10/12/24 14:50 10/12/24 Sodium 146 mmol/L (133-145) H 10/12/24 14:50 10/12/24 Magnesium 2.3 mg/dL (1.5-2.2) H 10/02/24 06:01 10/02/24 Phosphorus 6.5 mg/dL (2.7-4.5) H 10/02/24 06:01 10/02/24 BUN 72 mg/dL (4-19) H 10/12/24 14:50 10/12/24 Creatinine 3.01 mg/dL (0.70-1.20) H 10/12/24 14:50 Glucose 97 mg/dL (70-99) 10/12/24 14:50 10/12/24 POC Glucose 81 mg/dL (74-106) 09/29/24 12:34 09/29/24 TSH 1.750 uIU/mL (0.300-4.200) 07/25/24 05:16 07/06 04/30 COAG PT 16.1 SECONDS (11.7-14.9) H 05/02/24 19:47 04/07 10/28 Pre-Assessment Diagnosis/Proposed Procedure Planned Operative Procedure(s): EGD Anesthesia History Anesthesia History - planning rn: Anesthesia History - planning rn Hx Hospitalization Yes: 04/2024-06/2024 PROBABLE 09/06/24 07:38 SEPSIS/INTUBATED AND HAD SEIZURES Any Problems With Anesthesia No 09/02/24 11:04 Cholinesterase deficiency No 09/02/24 11:04 You/Your Family Experience No 09/02/24 11:04 fever (hyperthermia) with Relationship Recent Exposure to Contagious No 10/14/24 13:52 Disease Does patient have nerve No 09/02/24 11:04 stimulator Patient instructed to have device shut off --Does patient have Pacemaker No 10/14/24 13:52 or ICD? When Was Last Pacemaker Check QUESTION #4 FULL TEXT: You/Your Family Experience fever (hyperthermia) with Anesthesia Last Oral Intake Last Oral intake: Last Oral Intake NPO since 08:00 10/14/24 13:52 Meds taken in AM with sips of Yes 10/14/24 13:52 water? Meds patient instructed to take am of surgery PONV PONV - planning rn: PONV - planning rn Female HX of Motion Sickness HX of N/V After Surgery Non-Smoker Duration of Surgery greater than 60 minutes Number of Risk Factors PONV Score Height & Weight Height & Weight: Anesthesia: Height & Weight Height 5 ft 2 in 10/14/24 13:52 Weight: 117.934 kg 10/14/24 13:52 Body Mass Index (BMI) 47.5 10/14/24 13:52 Respiratory Assessment Respiratory Assessment - planning rn: Respiratory Tract Infection Hx - planning rn Hx Respiratory Tract Infection Yes 09/06/24 08:56 STOP Sleep Apnea STOP Sleep Apnea - planning rn: STOP Sleep Apnea - planning rn Hx Hypertension Yes 10/05/24 15:59 Hx Sleep Apnea No: reports negative test 10/04/24 14:33 recently CPAP Yes: DOESNT WEAR SINCE 09/06/24 09:45 GASTRIC BYPASS BIPAP No 09/02/24 11:04 Do you snore loudly (louder than talking or can be heard Do you often feel tired/ fatigued/ sleepy during daytime? Has anyone observed you stop breathing during sleep? STOP Results QUESTION #5 FULL TEXT : Do you snore loudly (louder than talking or can be heard through closed doors)? 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 Specify any problems Hx of Preganancy in last 3 Months Nurse Filling Out Transfusion & Questions: Date: Time: Patient unable to answer at this time (ie. confused, unrespo /Reproduction History /Reproductive History - planning rn: /Reproductive Hx- planning rn Hx Now Gestational Age (in weeks): EDC: Hx Hx Para Hx Section SAB No 09/02/24 11:04 Active Medications Active Medications: Current Medications Generic Name Dose Route Start Last Admin Trade Name Freq PRN Reason Stop Dose Admin Lactated Ringer's 1,000 mls @ 15 mls/hr 10/14/24 14:15 10/14/24 14:03 IV 15 mls/hr .Q48H VALERIO Administration PFSH Medical History VRE (vancomycin resistant enterococcus) culture positive Hypothyroidism Lymphedema Insomnia Obstructive sleep apnea Macrocytic anemia PAF (paroxysmal atrial fibrillation) Wears glasses Post-menopausal [...] Osteoarthritis Venous insufficiency of both lower extremities Pulmonary hypertension Diastolic dysfunction Elevated parathyroid hormone Metabolic acidosis Preop cardiovascular exam H/O hemorrhoids (HFpEF) heart failure with preserved ejection fraction History of pulmonary embolus (PE) COVID-19 (01/19/21) MRSA (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 Abdominal pain DVT (deep venous thrombosis) GERD (gastroesophageal reflux disease) Essential (primary) hypertension Incomplete left bundle branch [...] DAILY bowel m obility #30 ea 06/09/23 09/28/24 Rx oral powder packet fluorometholone 0.1 % eye 1 drp ophthalmic (eye) BID e yes 02/24/24 09/27/24 History drops,suspension atorvastatin 40 mg tablet 40 mg PO QHS cholesterol 03/3010/03/24 History ferrous sulfate 324 mg (65 mg 324 mg PO DAILY Suppleme nt 05/18/24 10/03/24 History iron) tablet,delayed release levothyroxine 125 mcg tablet 125 mcg PO DAILY thyroid 05/18/24 10/04/24 History acetaminophen 325 mg tablet 650 mg (2 x 325 mg) PO TID pain #1 06/09/24 09/27/24 Rx TAB calcium acetate(phosphat bind) 667 667 mg PO TIDCM sup plement #1 cap 06/09/24 10/04/24 Rx mg capsule magnesium hydroxide 400 mg/5 mL 30 ml PO X1 PRN Consti pation #30 mL 06/09/24 09/28/24 Rx oral suspension mirtazapine 15 mg tablet 7.5 mg (1/2 x 15 mg) PO 2000 06/09/24 09/28/24 Rx antidepressant #1 TAB sennosides 8.6 mg-docusate sodium 2 tab PO BID constip ation #1 TAB 06/09/24 Unknown Rx 50 mg tablet (Stimulant Laxative Plus) cholecalciferol (vitamin D3) 25 50 mcg PO DAILY supple ment 09/05/24 09/27/24 History mcg (1,000 unit) capsule furosemide 40 mg tablet 40 mg PO Q OTHER DAY Diureti c 09/05/24 09/28/24 History Held on 10/04/24. Instructions: Until restarted by nephrology lacosamide 100 mg tablet 100 mg PO BID Seizure contro l 09/05/24 10/04/24 History carvedilol 6.25 mg tablet 6.25 mg PO BID Blood pressur e 09/28/24 10/14/24 07:45 History multivitamin 1 tab PO DAILY Supplement 09/28/24 History zinc gluconate 50 mg tablet 50 mg PO DAILY supplement 09/28/24 09/28/24 History apixaban 5 mg tablet (Eliquis) 2.5 mg (1/2 x 5 mg) PO BID blood 10/04/24 10/04/24 Rx Held on 10/14/24. thinner #0 tabs Instructions: on hold for procedure gabapentin 100 mg capsule 100 mg PO TID pain 10/04/24 10/14/24 History gabapentin 300 mg capsule 100 mg (0.3333 x 300 mg) PO TID 10/04/24 09/28/24 Rx Neuropathy #1 cap lidocaine 5 % topical patch 1 patch topical DAILY pain #0 ea 10/04/24 10/14/24 07:45 Rx sodium bicarbonate 650 mg tablet 650 mg PO 4X/DAY supp lement #0 tabs 10/04/24 10/04/24 Rx acetaminophen 500 mg tablet 1,000 mg PO TID 10/14/24 0 10/14/24 History (Tylenol Extra Strength) doxycycline monohydrate 100 mg 100 mg PO BID 10/14/24 Unknown History capsule furosemide 20 mg tablet (Lasix) 20 mg PO DAILY 5 Unknown History Allergy/AdvReac Type Severity Reaction Status Date / Time cefazolin (From Kefzol) Allergy Severe hives/difficulty Verified 09/28/24 22:23 swallowing ibuprofen Allergy Unknown Rash Verified 09/28/24 22:23 peanut Allergy Anaphylaxis Verified 09/28/24 22:23 Sulfa (Sulfonamide Allergy Unknown Verified 09/28/24 22:23 Antibiotics) sulfamethoxazole (From Allergy Other Verified 09/28/24 22:23 Bactrim) trimethoprim (From Bactrim) Allergy Other Verified 09/28/24 22:23 Family History Mother Cancer uterine Father No [...] and no additional complaints, except as documented. 10/14/24 1294 <Electronically signed by Shlomo Hernandez MD > Date _ Shlomo Hernandez MD [facility] Signature: Date CC: ~ Signed [facility] Work Phone: 1(199) 578-517307-11-2025 [facility]07-11-2025 Consult note Author Qian Albrecht [facility] Note Date/Time October 14, 2024 12:1 8pm [facility] Medical Records Department [address] [place] [id number] Consultation - Nephrology 10/14/24 1217 MR#: [id number] Acct: [id number] Name: MARI LOPEZ Rep #:[id number] : 1940 84 From: Qian flores MD PCP: BROOKLYN Aguillon Status:ADM I N Location: [place] [address] Assessment & Plan Assessment/Plan (1) Chronic renal failure (CRF), stage 4 (severe): PLAN: Baseline creatinine was around 1.5-1.6 with several fluctuations. Recent episode of JOSE with BUN more than 100 and creatinine more than 3. Creatinine isbetter. She has moderate amount of lower extremity edema. Increase Lasix to 40mg once a day. HPI Consult Data Date of Consult: 10/14/24 HPI Narrative Reason for Consultation: JOSE HPI Narrative: MARI LOPEZ, is a 84 F who presents To the rehab after recent hospital stay. Nephrology on consultation in view of acute renal failure and CKD stage IIIb. She is known to me from office, baseline creatinine is around 1.5-1.6. Recentlyhad an episode of JOSE. Currently denies any complaints. [facility] Medical History VRE (vancomycin resistant enterococcus) culture positive Hypothyroidism Lymphedema Insomnia Obstructive sleep apnea Macrocytic anemia PAF (paroxysmal atrial fibrillation) Wears glasses Post-menopausal [...] Osteoarthritis Venous insufficiency of both lower extremities Pulmonary hypertension Diastolic dysfunction Elevated parathyroid hormone Metabolic acidosis Preop cardiovascular exam H/O hemorrhoids (HFpEF) heart failure with preserved ejection fraction History of pulmonary embolus (PE) COVID-19 (01/19/21) MRSA (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 Abdominal pain DVT (deep venous thrombosis) GERD (gastroesophageal reflux disease) Essential (primary) hypertension Incomplete left bundle branch [...] DAILY bowel m obility #30 ea 06/09/23 09/28/24 Rx oral powder packet fluorometholone 0.1 % eye 1 drp ophthalmic (eye) BID e yes 02/24/24 09/27/24 History drops,suspension atorvastatin 40 mg tablet 40 mg PO QHS cholesterol 03/3010/03/24 History ferrous sulfate 324 mg (65 mg 324 mg PO DAILY Suppleme nt 05/18/24 10/03/24 History iron) tablet,delayed release levothyroxine 125 mcg tablet 125 mcg PO DAILY thyroid 05/18/24 10/04/24 History acetaminophen 325 mg tablet 650 mg (2 x 325 mg) PO TID pain #1 06/09/24 09/27/24 Rx TAB calcium acetate(phosphat bind) 667 667 mg PO TIDCM sup plement #1 cap 06/09/24 10/04/24 Rx mg capsule magnesium hydroxide 400 mg/5 mL 30 ml PO X1 PRN Consti pation #30 mL 06/09/24 09/28/24 Rx oral suspension mirtazapine 15 mg tablet 7.5 mg (1/2 x 15 mg) PO 2000 06/09/24 09/28/24 Rx antidepressant #1 TAB sennosides 8.6 mg-docusate sodium 2 tab PO BID constip ation #1 TAB 06/09/24 Unknown Rx 50 mg tablet (Stimulant Laxative Plus) cholecalciferol (vitamin D3) 25 50 mcg PO DAILY supple ment 09/05/24 09/27/24 History mcg (1,000 unit) capsule furosemide 40 mg tablet 40 mg PO Q OTHER DAY Diureti c 09/05/24 09/28/24 History Held on 10/04/24. Instructions: Until restarted by nephrology lacosamide 100 mg tablet 100 mg PO BID Seizure contro l 09/05/24 10/04/24 History carvedilol 6.25 mg tablet 6.25 mg PO BID Blood pressur e 09/28/24 10/14/24 07:45 History multivitamin 1 tab PO DAILY Supplement 09/28/24 History zinc gluconate 50 mg tablet 50 mg PO DAILY supplement 09/28/24 09/28/24 History apixaban 5 mg tablet (Eliquis) 2.5 mg (1/2 x 5 mg) PO BID blood 10/04/24 10/04/24 Rx Held on 10/14/24. thinner #0 tabs Instructions: on hold for procedure gabapentin 100 mg capsule 100 mg PO TID pain 10/04/24 10/30/23 History gabapentin 300 mg capsule 100 mg (0.3333 x 300 mg) PO TID 10/04/24 09/28/24 Rx Neuropathy #1 cap lidocaine 5 % topical patch 1 patch topical DAILY pain #0 ea 10/04/24 10/14/24 07:45 Rx sodium bicarbonate 650 mg tablet 650 mg PO 4X/DAY supp lement #0 tabs 10/04/24 10/04/24 Rx acetaminophen 500 mg tablet 1,000 mg PO TID 10/14/24 U nknown History (Tylenol Extra Strength) doxycycline monohydrate 100 mg 100 mg PO BID 10/14/24 Unknown History capsule furosemide 20 mg tablet (Lasix) 20 mg PO DAILY 5 Unknown History Allergy/AdvReac Type Severity Reaction Status Date / Time cefazolin (From Kefzol) Allergy Severe hives/difficulty Verified 09/28/24 22:23 swallowing ibuprofen Allergy Unknown Rash Verified 09/28/24 22:23 peanut Allergy Anaphylaxis Verified 09/28/24 22:23 Sulfa (Sulfonamide Allergy Unknown Verified 09/28/24 22:23 Antibiotics) sulfamethoxazole (From Allergy Other Verified 09/28/24 22:23 Bactrim) trimethoprim (From Bactrim) Allergy Other Verified 09/28/24 22:23 Family History Mother Cancer uterine Father No [...] Number of servings: 3 ROS ROS Narrative negative except above Physical Exam Narrative Alert awake oriented x 3 no obvious distress no pallor no icterus no JVD s1s2 no murmurs lungs clear abdomen soft no organomegaly no edema no cyanosis Lab / Micro Data 10/13/24 05:37 10/12/24 05:26 Micro: Microbiology 10/13/24 12:45 Stool Stool Occult Blood (ALEC) - Final Occult Blood Positive 10/14/24 1218 <Electronically signed by Qian Albrecht MD> Cosigner Signature (if applicable): CC: BROOKLYN Orozco; Dr. Gautam Hardy MD~ Signed [facility] Work Phone: 1(203) 939-773407-09-2025 Discharge summary Author Alexis Friend [facility] Note Date/Time October 12, 2024 4:03p [facility] Medical Records Department [address] [place] [address] Emergency Department Summary 10/12/24 MR#: [id number] Acct: [id number] Name: MARI LOPEZ Rep #:[id number] : 1940 84 From: Alexis Friend MD PCP: BROOKLYN Aguillon Status:REG E R Location: ED HPI History of Present Illness Chief Complaint: Chest Pain Detail of Chief Complaint: Nausea all day with vomiting x 2 and palpitations Informant: patient Onset/Context/Timing Onset: Today Context: Sudden Onset Timing: Continuous (The nausea is continuous. The palpitations is intermittent) Quality: The not feel well and feels sick to her stomach and HPI narrative Location: GI and cardiac Current Severity: Mild Worsened by: Patient states her nausea is worse when she eats and she has vomited twice Relieved by: Apparently nothing Associated Symptoms Associated Symptoms: No other symptoms. Narrative Narrative: Patient is a 84-year-old woman. She is presently in the TCU floor. She was sent down because of nausea this been continuous since this morning. She has had 2 episodes of vomiting. Emesis without blood or coffee-ground's. She denies abdominal pain. She still feels nauseous. She has had no diarrhea or constipation. She is status post surgery several years ago. She denies chest pain, tightness, heaviness or pressure. She stated twice during the history and physical that she had palpitations, which she described as it is jumping out of my chest again. Patient denies shortness of breath. Patient does complain of chronic back pain that is unchanged from baseline. Sheis presently in the TCU for after hospitalization for cellulitis of right leg and skin graft. She inform me that Dr. 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 She is on an anticoagulant. Patient did have an EKG performed in the TCU unit. The one that was ordered here will be canceled. She was in A-fib with RVR. Rate is 131. She has a leftbundle branch block. She was durations 144 ms. QRS duration 354 ms. There is no acute ischemic changes noted. Prior similar symptoms: Yes Recent Illness/Hospitalization: Yes [facility] Medical History VRE (vancomycin resistant enterococcus) culture positive Hypothyroidism Lymphedema Insomnia Obstructive sleep apnea Macrocytic anemia PAF (paroxysmal atrial fibrillation) Wears glasses Post-menopausal [...] Osteoarthritis Venous insufficiency of both lower extremities Pulmonary hypertension Diastolic dysfunction Elevated parathyroid hormone Metabolic acidosis Preop cardiovascular exam H/O hemorrhoids (HFpEF) heart failure with preserved ejection fraction History of pulmonary embolus (PE) COVID-19 (01/19/21) MRSA (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 Abdominal pain DVT (deep venous thrombosis) GERD (gastroesophageal reflux disease) Essential (primary) hypertension Incomplete left bundle branch [...] DAILY bowel m obility #30 ea 06/09/23 09/28/24 Rx oral powder packet fluorometholone 0.1 % eye 1 drp ophthalmic (eye) BID e yes 02/24/24 09/27/24 History drops,suspension atorvastatin 40 mg tablet 40 mg PO QHS cholesterol 03/3010/03/24 History ferrous sulfate 324 mg (65 mg 324 mg PO DAILY Suppleme nt 05/18/24 10/03/24 History iron) tablet,delayed release levothyroxine 125 mcg tablet 125 mcg PO DAILY thyroid 05/18/24 10/04/24 History acetaminophen 325 mg tablet 650 mg (2 x 325 mg) PO TID pain #1 06/09/24 09/27/24 Rx TAB bisacodyl 10 mg rectal suppository 10 mg SD X1 PRN Con stipation #1 ea 06/09/24 Unknown Rx calcium acetate(phosphat bind) 667 667 mg PO TIDCM sup plement #1 cap 06/09/24 10/04/24 Rx mg capsule magnesium hydroxide 400 mg/5 mL 30 ml PO X1 PRN Consti pation #30 mL 06/09/24 09/28/24 Rx oral suspension mirtazapine 15 mg tablet 7.5 mg (1/2 x 15 mg) PO 2000 06/09/24 09/28/24 Rx antidepressant #1 TAB sennosides 8.6 mg-docusate sodium 2 tab PO BID constip ation #1 TAB 06/09/24 Unknown Rx 50 mg tablet (Stimulant Laxative Plus) cholecalciferol (vitamin D3) 25 50 mcg PO DAILY supple ment 09/05/24 09/27/24 History mcg (1,000 unit) capsule furosemide 40 mg tablet 40 mg PO Q OTHER DAY Diureti c 09/05/24 09/28/24 History Held on 10/04/24. Instructions: Until restarted by nephrology lacosamide 100 mg tablet 100 mg PO BID Seizure contro l 09/05/24 10/04/24 History benzonatate 100 mg capsule 100 mg PO TID cough 5 09/27/24 History carvedilol 6.25 mg tablet 6.25 mg PO BID Blood pressur e 09/28/24 10/04/24 History guaifenesin 600 mg tablet, 600 mg PO BID Cough 5 09/28/24 History extended release 12 hr multivitamin 1 tab PO DAILY Supplement 09/28/24 History zinc gluconate 50 mg tablet 50 mg PO DAILY supplement 09/28/24 09/28/24 History apixaban 5 mg tablet (Eliquis) 2.5 mg (1/2 x 5 mg) PO BID blood 10/04/24 10/04/24 Rx thinner #0 tabs gabapentin 100 mg capsule 100 mg PO TID pain 10/04/24 10/30/23 History gabapentin 300 mg capsule 100 mg (0.3333 x 300 mg) PO TID 10/04/24 09/28/24 Rx Neuropathy #1 cap lidocaine 5 % topical patch 1 patch topical DAILY pain #0 ea 10/04/24 10/04/24 Rx sodium bicarbonate 650 mg tablet 650 mg PO 4X/DAY supp lement #0 tabs 10/04/24 10/04/24 Rx Allergy/AdvReac Type Severity Reaction Status Date / Time cefazolin (From Kefzol) Allergy Severe hives/difficulty Verified 09/28/24 22:23 swallowing ibuprofen Allergy Unknown Rash Verified 09/28/24 22:23 peanut Allergy Anaphylaxis Verified 09/28/24 22:23 Sulfa (Sulfonamide Allergy Unknown Verified 09/28/24 22:23 Antibiotics) sulfamethoxazole (From Allergy Other Verified 09/28/24 22:23 Bactrim) trimethoprim (From Bactrim) Allergy Other Verified 09/28/24 22:23 Family History Mother Cancer uterine Father No [...] ROS ED Constitutional Constitutional ED: Denies chills, fever(s), subjective, sweats or weight loss Eyes Eyes: Denies blurry vision or change in vision ENT ENT ED: Denies ear pain, rhinorrhea or sore throat Cardiovascular Cardiovascular: Reports palpitations; Denies chest pain, orthopnea or racing heartbeat Respiratory/Chest Respiratory/Chest: Denies cough, dyspnea, dyspnea on exertion or orthopnea Gastrointestinal Gastrointestinal: Reports nausea and vomiting; Denies abdominal pain, constipation, diarrhea or melena Genitourinary Genitourinary ED: Reports other Details: Patient states she had a recent UTI. She presently has no urinary symptoms. ; Denies dysuria, hematuria or urinary frequency Musculoskeletal Musculoskeletal: Denies arthralgias, back pain, myalgias or neck pain Integumentary Reports rash Neurologic Neurologic: Denies headache(s) or paresthesias Endocrine Endocrinology: Denies cold intolerance Hematologic/Lymphatic Hematologic/Lymphatic: Reports systems reviewed and no addt'l complaints, exceptas documented EXAM Physical Exam Const Vital Signs: 10/12/24 13:35 10/12/24 14:34 10/12/24 15:00 Temperature 97.8 F Temperature Source Oral Pulse Rate 102 H 83 102 H Respiratory Rate 16 17 19 H Blood Pressure 128/80 H 117/63 117/71 Blood Pressure Mean 96 81 86 Pulse Ox 95 95 92 Oxygen Delivery Method Room Air Room Air Room Air Positive well nourished and well developed Constitutional Narrative: Vital signs noted. She is slightly tachycardic. She appears in no distress. General Appearance ED: well developed and NAD HEENT Reports moist mucous membranes HEENT Narrative: Head is atraumatic and normocephalic. Ears normal. Nares patent. Posterior pharynx is normal Eyes PERRL and EOMs intact bilaterally General Eye ED: Negative for pale conjunctiva or scleral icterus Neck no lymphadenopathy and supple Neck Narrative: Unable to determine if patient has JVD due to body habitus, BMI 56 Chest Wall inspection of chest normal and palpation of chest normal Chest Narrative: She does have reproducible chest pain on the left which she describes as her jumping out of her chest. Of note when she states she was jumping out of her chest her heart rate was between 105 and 110. Resp normal respiratory effort and clear to auscultation bilaterally Cardio no murmurs Rhythm: abnormal rhythm irregularly irregular GI normal to inspection, nondistended, normoactive bowel sounds, non-tender, non-distended and no masses; Negative for hepatosplenomegaly GI Narrative: Abdominal exam is limited due to body habitus. Back/Spine no CVA tenderness Extremity Extremity Narrative: Or evidence of improving cellulitis right leg with skin graft noted. Skin graftis intact with no evidence of necrosis. Neuro oriented x3 and CN's II-XII intact bilaterally Sensorium / Orientation: alert Psych mental status grossly normal Skin Skin Narrative: Previously described under the extremity portion of the EMR MDM MDM MDM Narrative Medical decision making narrative: Suspect patient's palpitations is her A-fib with RVR. Since her heart rate now is controlled no treatment was undertaken at this time. She was treated with Zofran for nausea. Baseline blood work was obtained assess white count, H&H, renal function, glucose CO2 anion gap. Lab Data Attestation: I reviewed the patient's lab results. Lab results narrative: CBC reveals macrocytic anemia. Labs: Laboratory Results - last 24 hr 10/12/24 14:50 WBC 6.6 RBC 2.85 L Hgb 9.1 L Hct 31.0 L MCV 108.8 H MCH 31.9 MCHC 29.4 L RDW Std Deviation 57.7 H RDW Coeff of Parris 14.3 Plt Count 183 MPV 13.4 H Immature Gran % (Auto) 0.800 Neut % (Auto) 69.2 Lymph % (Auto) 19.0 [place] % (Auto) 5.3 Eos % (Auto) 5.2 H Baso % (Auto) 0.5 Absolute Neuts (auto) 4.6 Absolute Lymphs (auto) 1.25 Nucleated RBC % 0 Sodium 146 H Potassium 4.4 Chloride 111 H Carbon Dioxide 22.8 Anion Gap 12 BUN 72 H Creatinine 3.01 H Estim Creat Clear Calc 18.75 L Est GFR (MDRD) Non-Af 15 L BUN/Creatinine Ratio 23.9 H Glucose 97 Calcium 8.3 Total Bilirubin 0.23 AST 66 H ALT 100 H Alkaline Phosphatase 134 H Total Protein 5.8 L Albumin 3.1 L Globulin 2.7 Albumin/Globulin Ratio 1.1 Treatment and Re-Evaluation :: Patient was reassessed at 1600. She had to be awakened from sleep. She no longer has nausea. Since she did not pain but palpitations will discharge back to TCU. Her heart rate presently is 96. Discharge Plan Triage Chief Complaint: Chest Pain Other Complaint: Nausea/Vomiting ED Provider: Alexis Friend Dx/Rx/DC Orders Clinical Impression: Palpitations, Nausea & vomiting, Atrial fibrillation, chronic, Obstructive sleep apnea, Essential (primary) hypertension, BMI 45.0-49.9, adult, Anticoagulant long-term use Instructions: ED Vomiting (Adult) Prescriptions: No Action Mirena 20 mcg/24 hours [...] tablet 40 mg PO Q OTHER DAY fluorometholone 0.1 % drops,suspension 1 drp ophthalmic (eye) BID benzonatate 100 mg capsule 100 mg PO TID carvedilol 6.25 mg tablet 6.25 mg PO BID multivitamin Tablet 1 tab PO DAILY guaifenesin 600 mg tablet extended release 12hr 600 mg PO BID zinc gluconate 50 mg tablet 50 mg PO DAILY Eliquis 5 mg Tablet 2.5 mg PO BID Qty: 0 0RF sodium bicarbonate 650 mg Tablet 650 mg PO 4X/DAY Qty: 0 0RF lidocaine 5 % Adhesive Patch,Medicated 1 patch topical DAILY Qty: 0 0RF Protocol: *Topical Application Instructions APPLICATION INSTRUCTIONS: left knee gabapentin 300 mg capsule 100 mg PO TID Qty: 1 0RF gabapentin 100 mg capsule 100 mg PO TID [...] 650 mg PO TID Qty: 1 0RF bisacodyl 10 mg Suppository 10 mg SD X1 PRN (Reason: Constipation) Qty: 1 0RF calcium acetate(phosphat bind) 667 mg Capsule 667 mg PO TIDCM Qty: 1 0RF magnesium hydroxide 400 mg/5 mL Suspension 30 ml PO X1 PRN (Reason: Constipation) Qty: 30 0RF mirtazapine 15 mg Tablet 7.5 mg PO 2000 Qty: 1 0RF sennosides-docusate sodium [Stimulant Laxative Plus] 8.6-50 mg Tablet 2 tab PO BID Qty: 1 0RF Primary Care Provider: Miryam Orozco Referrals: Miryam Orozco NP-C [Primary Care Provider] - Activity Restrictions/Additional Instructions: Would recommend Zofran and ODT instead of Zofran tablets. Print Language: Barbadian Disposition Disposition: Home, Self Care What to do if you have Problems For any increased pain, shortness of breath, bleeding, nausea or vomiting, chestpain, or any unexpected problems, contact your Primary Care Provider. Call [facility] ([phone]) or report to the closest Emergency Room. Call 911 if necessary. 10/12/24 1603 <Electronically signed by Alexis Friend MD> Cosigner Signature (if applicable): CC: BROOKLYN Orozco ~ Signed [facility] Work Phone: 1(480) 893-614007-02-2025 Progress note Author Merle Liu [facility] Note Date/Time October 05, 2024 4:33p m [facility] Medical Records Department [address] [place] [address] Progress Note - Pharmacy 10/05/24 1446 MR#: [id number] Acct: [id number] Name: MARI LOPEZ Rep #:[id number] : 1940 84 From: Merle Liu PCP: BROOKLYN Aguillon Status:ADM I N Location: [place] [id number] Documented by User: Merle Liu 10/05/24 15:25 TCU RX Drug Regimen Review Subjective/Objective Subjective/Objective Subjective: TCU Admission. 84 YOF presented to ER with lower extremity injury. Hospitalized for encephalopathy 2/2 acute kidney injury, hyperkalemia, E. Coli UTI, metabolic acidosis, tremor. Admitted to TCU with debility for strengtheningand rehabilitation. Objective: Allergies cefazolin (From Kefzol) Allergy (Severe, Verified 09/28/24 22:23) hives/difficulty swallowing ibuprofen Allergy (Unknown, Verified 09/28/24 22:23) Rash peanut Allergy (Verified 09/28/24 22:23) Anaphylaxis process peanut, can eat peanuts, not example peanut butter Sulfa (Sulfonamide Antibiotics) Allergy (Verified 09/28/24 22:23) Unknown sulfamethoxazole (From Bactrim) Allergy (Verified 09/28/24 22:23) Other trimethoprim (From Bactrim) Allergy (Verified 09/28/24 22:23) Other Current Medications Generic Name Dose Route Start Last Admin Trade Name Freq PRN Reason Stop Dose Admin Acetaminophen 1,000 mg 10/04/24 22:00 10/05/24 13:10 Acetaminophen 500 Mg Tablet PO 1,000 mg TID VALERIO Administration Apixaban 2.5 mg 10/04/24 22:00 10/05/24 09:28 Apixaban 2.5 Mg Tablet ([facility]) PO 2.5 mg BID VALERIO Administration Atorvastatin Calcium 40 mg 10/04/24 22:00 10/04/24 21:23 Atorvastatin Calcium 40 Mg Tablet PO 40 mg QHS VALERIO Administration Benzonatate 100 mg 10/04/24 22:00 10/05/24 13:13 Benzonatate 100 Mg Capsule PO Not Given TID VALERIO Bisacodyl 10 mg 10/04/24 15:06 Bisacodyl 10 Mg Suppository RC X1 PRN Constipation Calamine/Phenol 1 applic 10/04/24 22:00 10/05/24 09:27 Menthol/Lanolin/Calamine/Znox 113 Gm Tube TOPICAL 1 applic BID VALERIO Administration Protocol Calcium Acetate 667 mg 10/04/24 17:45 10/05/24 11:03 Calcium Acetate 667 Mg Capsule PO 667 mg TIDCM VALERIO Administration Carvedilol 6.25 mg 10/04/24 17:00 10/05/24 09:28 [facility] 6.[facility] Protocol Cholecalciferol 50 mcg 10/05/24 10:00 10/05/24 09:29 Cholecalciferol (Vit D3) 25 Mcg Tablet (1,000 Units) PO 50 mcg DAILY [facility] Administration Ferrous Sulfate 325 mg 10/05/24 12:00 10/05/24 11:03 Ferrous Sulfate 325 Mg Tablet PO 325 mg DAILY@1200 [facility]1983 Administration Gabapentin 100 mg 10/04/24 22:00 10/05/24 13:10 Gabapentin 100 Mg Capsule PO 100 mg TID VALERIO Administration Guaifenesin 600 mg 10/04/24 22:00 10/05/24 09:28 Guaifenesin 600 Mg Tablet PO 600 mg BID VALERIO Administration Lacosamide 100 mg 10/04/24 22:00 10/05/24 09:29 Lacosamide 100 Mg Tablet PO 100 mg BID [facility] Administration Levothyroxine Sodium 125 mcg 10/05/24 06:00 10/05/24 05:34 Levothyroxine 125 Mcg Tablet PO 125 mcg DAILY@0600 [facility]1983 Administration Lidocaine 1 patch 10/05/24 10:00 10/05/24 09:27 Lidocaine 5% Patch TOPICAL 1 patch DAILY [facility]1983 Administration Protocol Mirtazapine 7.5 mg 10/04/24 20:00 10/04/24 21:17 Mirtazapine 15 Mg Tablet PO 7.5 mg 2000 [facility] Administration Multivitamins 1 tablet 10/05/24 08:00 10/05/24 09:28 Multivitamins,Therapeutic [facility]t [facility] Administration Nitroglycerin 0.4 mg 10/04/24 15:23 Nitroglycerin (Inpatient Use) 0.4 Mg Tab.Subl SL Q5M PRN CARDIAC/CHEST PAIN Oxycodone HCl 5 mg 10/04/24 17:32 10/04/24 22:34 Oxycodone 5 Mg Tablet PO 5 mg Q4H PRN PRN Administration Pain Score 1-10 or Pre PT/OT Polyethylene Glycol 17 gm 10/05/24 10:00 10/05/24 09:27 Polyethylene Glycol 3350 17 Gm Packet PO 17 gm DAILY [facility] Administration Senna/Docusate Sodium 2 tablet 10/04/24 22:00 10/05/24 09:29 Senna/Docusate Sodium 1 Tablet PO 2 tablet BID [facility] Administration Sodium Bicarbonate 650 mg 10/04/24 17:00 10/05/24 11:03 Sodium Bicarbonate 650 Mg Tablet PO 650 mg 4X/DAY VALERIO Administration Sodium Chloride 10 - 40 ml 10/04/24 15:51 10/05/24 09:33 0.9% Saline Lock 10 Ml Syringe IV 10 ml UD PRN Administration SALINE FLUSH Tuberculin PPD 0.1 ml 10/12/24 10:00 Tuberculin,Purif.Prot.Deriv. 50 Tu/Ml Vial ID 10/12/24 10:01 X1 ONE Zinc Sulfate 50 mg 10/05/24 10:00 10/05/24 09:29 Zinc Sulfate 50 Mg Zinc (220 Mg) Oral Capsule PO 50 mg DAILY VALERIO Administration Problem List Atrial fibrillation (Acute) Insomnia (Acute) Appetite loss (Acute) GERD (gastroesophageal reflux disease) (Acute) Iron deficiency anemia (Acute) Hyperlipidemia (Acute) Coronary artery disease (Acute) BMI 45.0-49.9, adult (Acute) Essential (primary) hypertension (Acute) Obstructive sleep apnea (Acute) (HFpEF) heart failure with preserved ejection fraction (Acute) Lymphedema (Acute) Hypothyroidism (Acute) DVT (deep venous thrombosis) (Acute) Toxic metabolic encephalopathy (Acute) Metabolic acidosis (Acute) Left knee pain (Acute) Tremulousness (Acute) Hyperkalemia (Acute) UTI (urinary tract infection) (Acute) Bilateral knee pain (Acute) Debility (Acute) Vital Signs Temp Pulse Resp BP Pulse Ox O2 Del Method 97.4 F L 71 18 110/61 97 Room Air 10/05/24 09:21 10/05/24 09:21 10/05/24 09:21 10/05/24 09:21 10/05/24 09:21 10/05/24 09:21 Oxygen Delivery Method Room Air Weight: 120.792 kg Body Mass Index (BMI) 49.0 Sodium 141 mmol/L (133-145) 10/05/24 07:00 Potassium 4.7 mmol/L (3.3-5.1) 10/05/24 07:00 Chloride 105 mmol/L (98-108) 10/05/24 07:00 Carbon Dioxide 25.1 mmol/L (21.0-32.0) 10/05/24 07:00 Anion Gap 11 (5-15) 10/05/24 07:00 BUN 76 mg/dL (4-19) H 10/05/24 07:00 Creatinine 2.96 mg/dL (0.70-1.20) H 10/05/24 07:00 Est GFR (MDRD) Non-Af 15 (>60) L 10/05/24 07:00 BUN/Creatinine Ratio 25.7 RATIO (10-20) H 10/05/24 07:00 Glucose 89 mg/dL (70-99) 10/05/24 07:00 Assessment/Plan: 1. Pain: acetaminophen 1000mg PO TID, lidocaine 5% patch 1 patch topical daily and oxycodone 5mg PO Q4H PRN pain 1-10. Resident has had 2 doses of oxycodone for pain scores of 8 and 9 in the back and left leg respectively. Please continue to monitor for increased pain, PRN usage, constipation, LFTs (last elevated on 10/02/24), respiratory depression, rash. 2. Bowel: Miralax 17gm PO daily, senna/docusate 2T PO BID and bisacodyl 10mg RC daily PRN constipation. No PRN doses given. Please continue to monitor for PRN usage and constipation. Last documented bowel movement was 10/05/24. 3. CAD/atrial fibrillation: carvedilol 6.25mg PO BIDCM, apixaban 2.5mg PO BID (age >80 and SCr >1.5mg/dL) and nitroglycerin 0.4mg SL Q5M PRN chest pain. No PRN doses given. Please continue to monitor for S/S of bleeding, hemoglobin (last 8.9g/dL), HR (range 71-114), BP (range 136/75 and 110/61), chest pain and PRN usage. 4. Hypothyroidism: levothyroxine 125mcg PO daily. Please continue to monitor TSH(last 07/25/24) and S/S of hypo/hyperglycemia. 5. Seizure disorder: lacosamide 100mg PO BID. Please continue to monitor for falls/fractures (BEERs), seizures, dizziness, vertigo, fatigue. 6. Hyperlipidemia: atorvastatin 40mg PO QHS. Please continue to monitor lipid panel (last 06/13/24), LFTs (last elevated AST 71U/L, ALT 218 U/L, alk phos 121U/L on 10/02/24) and muscle pain. 7. Cough: guaifenesin 600mg PO BID and benzonatate 100mg PO TID. Please continueto monitor for S/S of cough. 8. Neuropathic pain: gabapentin 100mg PO TID. Please consider changing frequencyto daily as the max dose per day for CrCl of 17 mL/min is 200-700mg once daily. Thanks. Please continue to monitor for confusion, falls/fractures (BEERs) and renal function (BEERs). 9. Hyperphosphatemia: calcium acetate 667mg PO TIDCM. Please continue to monitorphosphorus (last 6.5mg/dL 10/02/24) and calcium (last 8.1mg/dL). 10. Metabolic acidosis: sodium bicarbonate 650mg PO 4x/day. Please continue to monitor CO2 (last 21.1mmol/L) and renal function. 11. Iron deficiency anemia: ferrous sulfate 325mg PO daily. Please continue to monitor hemoglobin (last 8.9g/dL), dark stools, constipation and iron studies (05/19/24). 12. Vitamin D deficiency/nutrition/zinc deficiency: cholecalciferol 50mcg PO daily, multivitamin 1T PO daily and zinc sulfate 50mg PO daily. Please continue to monitor vitamin D (last 06/13/24). 13. Skin irritation: Calmoseptine topical bid. Please continue to monitor. Assessment/Plan for indications treated with psychotropic medications: 1. Depression/insomnia: mirtazapine 7.5mg PO QHS. Please see physician note regarding GDR. Monitor for drowsiness, dizziness or confusion, appetite and bodyweight (can cause weight gain), dry mouth, abnormal movements/movement disorders (including akathisia, dyskinesia, acute dystonia or restless leg syndrome), suicidal thoughts or behaviors (Boxed Warning). Monitor for constipation. Last documented BM =10/05/24. Monitor lipids as indicated (can increase serum cholesterol and triglycerides). FLP =06/13/24. Monitor blood pressure. BP range since admission =136/75 and 110-61. Monitor fororthostatic hypotension, including postural dizziness, syncope or falls. Check orthostatic vital signs if suspicion of orthostasis. Monitor for efficacy including resident symptoms, behaviors and indications of distress. Monitor for tolerability including mental status, cognition, excessivesleepiness, withdrawal or decreased participation in activities and decline in physical functioning. Maximize use of nonpharmacologic/behavioral interventions to facilitate dose reduction or discontinuation as appropriate. Please evaluate the appropriateness of GDR unless contraindicated. If appropriate, GDR should be attempted in 2 separate quarters within the first year of use or admission to TCU. If GDR attempted, monitor resident symptoms/behaviors. Medical chart and medication regimen reviewed. The following medication irregularities or issues were identified: 1. Gabapentin 100mg PO TID. Please consider changing frequency to daily as the max dose per day for CrCl of 17 mL/min is 200-700mg once daily. Thanks. Date Date of Note: 10/05/24 Documented by User: Dr. Gautam Hardy MD 10/05/24 16:33 TCU RX Drug Regimen Review Provider Comments Provider responsibility Provider Comments to Recommendations by Pharmacy Disagree: Define (Gabapentin 100mg tid termination clerk use, continue current dose.) 10/05/24 1525 <Electronically signed by Merle Liu> Merle Brock Signature (if applicable): 10/05/24 1633 <Electronically signed by Gautam Hardy MD> CC: ~ Signed [facility] Work Phone: 1(301) 464-678007-01-2025 [facility]07-01-2025 [facility]06-27-2025 Telephone encounter Note* Telephone Encounter - Lizy Capone MD - 09/30/2024 8:28 AM EDT Noted Lizy Capone MD [facility]06-27-2025 Miscellaneous Notes* Telephone Encounter - Lizy Capone MD - 09/30/2024 8:28 AM EDT Noted Lizy Capone MD * Telephone Encounter - Adela Pena LPN - 09/29/2024 10:26 AM EDT Patient friend said she is her Alex ARAUZ calling said patient is currently admitted to [facility]. She was taken via squad last night, with UTI, dehydration, confusion, high potassium, etc. She wanted tolet PCP know that. documented in this encounterBarney [facility]06-[facility] Telephone encounter Note * Telephone Encounter - Adela Pena LPN - 09/29/2024 10:26 AM EDT Patient friend said she is her POAAlex calling said patient is currently admitted to [facility]. She was taken via squad last night, with UTI, dehydration, confusion, high potassium, etc. She wanted tolet PCP know that. [facility]06-25-2025 Radiology Diagnostic study [facility]06-25-2025 Radiology Diagnostic study [facility] 09-28-2024 Radiology Diagnostic study [facility]06-25-2025 Radiology Diagnostic study [facility]06-25-2025 Discharge summary Author Jhonatan Maxwell [facility] Note Date/Time September 28, 2024 8:32 pm [facility] Medical Records Department [address] [place] [address] Emergency Department Summary 09/28/24 MR#: [id number] Acct: [id number] Name: MARI LOPEZ Rep #:[id number] : 1940 84 From: Jhonatan Maxwell DO [...] Zamora DO> Cosigner Signature (if applicable): cc: COOKER MECHANIC-C Miryam Tannhof ~* Signed HPI History of Present Illness Chief Complaint: Lower Extremity Injury Narrative Narrative: Patient is a 84-year-old female with a past medical history of DVT, seizures, hypothyroidism, lymphedema, heart failure with preserved ejection fraction, TADEO,hypertension, BMI 45-49 who presented to the emergency department chief complaint of generalized weakness, knee pain. According to the patient recentlyrosa has become extremely weak and cannot walk and her legs are giving out on her. She states that she was working with physical therapy twice today and thatrosa felt was and EMS had to be called out to pick her up. They note that recently over the last several days she has also developed a tremor that is new for her. In the triage note they note that she is having some word finding difficulty and notes that this has been going on several days as well. [facility] Medical History Wears glasses Post-menopausal Open [...] bisacodyl 10 mg rectal suppository 10 mg SD X1 PRN Con stipation #1 ea 06/09/24 [...] 09/05/24 Unknown History mg-600 mg tablet extended [id number] hr (Mucinex DM) furosemide 40 mg tablet [...] following commands and that she was at [facility] year is 2024. NIH of 0 GCS [...] 0RF bisacodyl 10 mg Suppository 10 mg SD X1 PRN (Reason: Constipation) Qty: 1 0RF [...] NP-C [Primary Care Provider] - Print Language: Barbadian What to do if you have Problems For any increased pain, shortness of breath, bleeding, nausea or vomiting, chestpain, or any unexpected problems, contact your Primary Care Provider. Call [facility] ([phone]) or report to the closest Emergency Room. Call 911 if necessary. 09/28/24 1636 <Electronically signed by Jhonatan Maxwell DO> Cosigner Signature (if applicable): CC: BROOKLYN Orozco ~ Signed [facility] Work Phone: 1(299) 999-563306-19-2025 History of Present illness Narrative* Lizy Capone [...] CONDYLE&PLATU MEDIAL&LAT COMPARTMENTS 1990 bilateral total knee s([place]) ARTHRP KNE CONDYLE&PLATU MEDIAL&LAT COMPARTMENTS 10/24/2004 bilateral [...] shoulder. Dr. Klaus Omalley with [facility] Family History FAMILY HISTORY Problem Relation [...] 07/21/2024 Covid-19 Vaccine( season) due on 07/28/2024 DTaP,Tdap,Td Vaccine(2 - Td [...] 08/22/2024 Negative Ketones, Urine 08/22/2024 Negative Specific [place], Ur 08/22/2024 1.010 Hemoglobin/Blood,Ur 08/22/2024 Negative pH, [...] Past Histories independently gathered by the clinical network support and the remaining scribed note accurately describes [...] PM. Alex Lackey MA documented in this encounterBarney [facility]2025 NoteHNO ID: [id number] Author: LIZY CAPONE MD Service: ? Author [...] CONDYLEANDPLATU MEDIALANDLAT COMPARTMENTS 1990 bilateral total knee s([place]) ARTHRP KNE CONDYLEANDPLATU MEDIALANDLAT COMPARTMENTS 10/24/2004 bilateral [...] shoulder. Dr. Klaus Omalley with [facility] Family History FAMILY HISTORY Problem Relation [...] (MOM) 400 mg/5 mL (more content not included)...[facility]06-17-2025 Telephone encounter Note* Telephone Encounter - [...] stopped in the office Lizy Capone MD [facility]06-17-2025 Miscellaneous Notes* Telephone Encounter - Lizy Capone [...] office Lizy Capone MD documented in this encounterBarney Children'[facility]06-17-2025 Progress note Author Gonzalo Lomax [facility] Note Date/Time September 20, 2024 9:03 am [facility] Medical Records Department [address] [place] [address] Progress Note 09/20/24 0902 MR#: [id number] Acct: [id number] Name: MARI LOPEZ Rep #:[id number] : 1940 84 From: Gonzalo Lomax MD PCP: Miryam Orozco, COOKER MECHANIC-C Status:REG R CR Location: WC Subjective Subjective The patient is an 84-year-old female presenting with the evaluation of the rightlower extremity skin graft and the right thigh donor site. The skin graft on theright leg shows a 100% take and has healed nicely, indicating successful integration of the grafted skin. The donor site on the right thigh has also healed well, with no complications reported. The patient has been using Aquaphor as a moisturizer on both sites to aid in healing and prevent shear forces on the fresh skin. She has been advised to apply it twice daily and to avoid any dressings over the healed areas. The patient uses a compression pump from her ankle to her hip twice daily, whichshe has continued post-procedure. She reports no need for additional compressiongarments and has not experienced any adverse effects from the procedure. Attestation: Documentation on this patient encounter was supported using ambient scribe technology/ voice AI technology. The patient consented to recording for the purpose of documenting the encounter. Provider reviewed content of the generatednote prior to signature. Objective Data Objective Data Vital Signs: Vital Signs Temp Pulse Resp BP 98.1 F 72 18 138/78 H 09/19/24 14:22 09/19/24 14:22 09/19/24 14:22 09/19/24 14:22 Physical Exam Narrative Skin graft healed with 100% take over the right lower extremity wound Donor site healthy appearing right thigh Both areas are dry Assessment & Plan Assessment/Plan (1) S/P flap graft: PLAN: 1. Right lower extremity skin graft The graft has taken 100% and is healing well. The patient is advised to continueusing Aquaphor twice daily to maintain moisture and protect the graft. No dressings are needed, and the patient can shower normally. Follow-up in three weeks to assess continued healing and ensure no complications arise. 2. Right thigh donor site The donor site is healing well with no complications. Continue applying Aquaphortwice daily. No additional interventions are necessary at this time. PLAN: Plan - Apply Aquaphor to the right leg and thigh twice daily. - Avoid dressings over the healed areas. - Use the compression pump twice daily as usual. - Follow up in three weeks for a check-up. Charges/Coding Procedures Integumentary 111xxx-113xx: 09451 Global Visit 09/20/24 0903 <Electronically signed by Gonzalo Lomax MD> Gonzalo Lomax MD Cosigner Signature (if applicable): CC: ~ Signed [facility] Work Phone: 1(802) 576-205406-12-2025 NoteHNO ID: [id number] Author: MICHAEL CARTER APRN.SAGGER MAKER Service: ? Author Type: Nurse Practitioner Type: [...] and thrombophlebitis of femoral vein (deep) (superficial) ([facility]) Unspecified sleep apnea Previous Surgical History PAST SURGICAL HISTORY Procedure Laterality Date ANESTHESIA HERNIA REPAIR LOWER ABDOMEN NOS 04/2004,05/11 gortex put in on 05/11 then taken out06/08 ARTHRP KNE CONDYLEANDPLATU MEDIALANDLAT COMPARTMENTS 1990 bilateral total knee s([place]) ARTHRP KNE CONDYLEANDPLATU MEDIALANDLAT COMPARTMENTS 10/24/2004 bilateral [...] INTERNAL RUBBER BAND LIGATIONS HYSTEROSCOPY BX W/WO DEANNADC 01/07/2018 PAST SURGICAL HISTORY OF 04/10/2016 [place] and new knee cap put in right leg PAST SURGICAL HISTORY OF 04/25/2016 had to debri right leg wound with cellutitis infection SHOULDER SURGERY HX Left 02/22/2024 left reverse total shoulder. Dr. Klaus Omalley with [facility] Family History FAMILY HISTORY Problem Relation [...] Use Smoking status: For (more content not included)...[facility] 09-15-2024 History of Present illness Narrative* Michael Carter APRN.[facility] - 09/15/2024 1:47 PM EDT Chief [...] CONDYLE&PLATU MEDIAL&LAT COMPARTMENTS 1990 bilateral total knee s([place]) ARTHRP KNE CONDYLE&PLATU MEDIAL&LAT COMPARTMENTS 10/24/2004 bilateral [...] shoulder. Dr. Klaus Omalley with [facility] Family History FAMILY HISTORY Problem Relation [...] by Dr. Capone as well. Michael Carter APRN.SAGGER MAKER documented in this encounterBarney Children'S Medical Center06-12-2025 Telephone encounter Note * Telephone Encounter - Analia Gracia RN - 09/15/2024 9:32 AM EDT Pts friend Alex called and is notified of providers message and instructions. She voices understanding. Tried to get her in with Dr Capone, but friend said there is no way she would be able tip ready by those appointment times. Pt scheduled with Michael Carter COOKER MECHANIC. Analia Gracia RN [facility]06-12-2025 Miscellaneous Notes* Telephone Encounter - Analia Gracia RN - 09/15/2024 9:32 AM EDT Pts friend Alex called and is notified of providers message and instructions. She voices understanding. Tried to get her in with Dr Capone, but friend said there is no way she would be able tip ready by those appointment times. Pt scheduled with Michael Carter COOKER MECHANIC. Analia Gracia RN * Telephone Encounter - [...] advise. Analia Gracia RN documented in this encounterBarney Children'S Medical Center06-11-2025 Telephone encounter Note * Telephone Encounter - Samuel Gonzalez DO - 09/14/2024 9:20 PM EDT I think she needs to be assessed in the office. There are no definite signs of pneumonia, but clinical exam is needed to correlate and listen to her to make this judgement Samuel Gonzalez DO [facility] Work Phone: 1(980) 990-170706-11-2025 Telephone encounter Note* Telephone Encounter - Analia Gracia RN - 09/14/2024 12:57 PM EDT Pt called in asking for her chest x-ray results. She states she thinks she has pneumonia. Please call and advise. Analia Gracia, RN [facility]06-09-2025 Progress note Author Gonzalo Lomax [facility] Note Date/Time September 12, 2024 2:18p m [facility] Medical Records Department [address] [place] [address] Progress Note 09/12/24 1416 MR#: [id number] Acct: [id number] Name: MARI LOPEZ Rep #:[id number] : 1940 84 From: Gonzalo Lomax MD PCP: BROOKLYN Aguillon Status:REG R CR Location: Progress Note Post op day 5 from [facility] VAC removed. Pain controlled. Physical Exam Narrative RIGHT LOWER EXTREMITY 100% take of the skin graft. Right thigh donor site healthy. Assessment & Plan Assessment/Plan (1) S/P flap graft: PLAN: Expected course Xeroform twice daily to the skin graft Mepilex Ag today to the thigh donor site (do not change, keep for the next week) F/u in 1 week Procedures Integumentary 111xxx-113xx: 51836 Global Visit 09/12/24 1418 <Electronically signed by Gonzalo Lomax MD> Gonzalo Lomax MD Cosigner Signature (if applicable): CC: ~ Signed [facility] Work Phone: 1(903) 602-733706-09-2025 History of Present illness Narrative* Alcon Santiago, RT(R) - 09/12/2024 4:00 PM EDT Radiology [...] PATIENT PRESENTS WITH AN IMPLANTABLE OR ATTACHED PRODUCTION POSTING CLERK: No RADIOLOGY DEPARTMENT: General X-ray: Exam(s) Completed: Chest X-Ray PERIPHERAL IV DATA: Not applicable SIGNED BY: RT Gracy(Jean Pierre) September 12, 2024 3:52 PM documented in this encounterBarney Children'S Medical Center06-09-2025 NoteHNO ID: [id number] Author: ALCON SANTIAGO RT(R) Service: Radiology Author Type: Technologist Type: [...] PATIENT PRESENTS WITH AN IMPLANTABLE OR ATTACHED PRODUCTION POSTING CLERK: No RADIOLOGY DEPARTMENT: General X-ray: Exam(s) Completed: Chest X-Ray PERIPHERAL IV DATA: Not applicable SIGNED BY: RT Gracy(R) September 12, 2024 3:52 [facility]06-09-2025 Telephone encounter Note* Telephone Encounter - Alex Lackey MA - 09/12/2024 2:43 PM EDT Pt notified. Alex Lackey MA [facility]06-09-2025 Miscellaneous Notes* Telephone Encounter - Alex Lackey [...] xray done. Please advise documented in this encounterBarney Children'S Medical Center06-09-2025 Telephone encounter Note * Telephone Encounter - Lizy Capone MD - 09/12/2024 2:29 PM EDT OK for CXR as ordered Lizy Capone MD [facility]06-09-2025 Telephone encounter Note* Telephone Encounter - Adela Pena LPN - [...] to have chest xray done. Please advise [facility]06-05-2025 Telephone encounter Note* Telephone Encounter - Analia Gracia RN - 09/08/2024 4:00 PM EDT Dorys with [facility] and Pt called and notified of providers message. They voice understanding. Analia Gracia RN [facility]06-05-2025 Miscellaneous Notes* Telephone Encounter - Analia Gracia RN - 09/08/2024 4:00 PM EDT Dorys with [facility] and Pt called and notified of providers message. They voice understanding. Analia Gracia RN * Telephone Encounter - Lizy Capone MD - 09/08/2024 3:54 PM EDT OK for continuation of both medications; Rxs sent to pharmacy Lizy Capone MD * Telephone Encounter - Josselin Baxter RN - 09/07/2024 1:48 PM EDT Dorys with [facility] calling with pt update for PCP. Patient was evaluated in EC on 09/04/24 and was wasordered doxycycline and benzonatate for lower respiratory infection. At that time, EC provider did consider sending pt to ER, but after further assessment and strict precautions explained during visit, patient was able to return home. Dorys would like PCP to know that patient still has course crackles in lower lung areas, more in the right than left, and having green sputum production. No severe sx's noted. Pt is to complete her antibiotic tomorrow. Pt's NOV is scheduled with Dr. Capone on 09/22. Please call Nurse Dorys if PCP would aleyda to extend treatment or for any other orders. [phone]. Josselin Baxter RN documented in this encounterBarney Children'S Medical Center06-05-2025 Telephone encounter Note * Telephone Encounter - Lizy Capone MD - 09/08/2024 3:54 PM EDT OK for continuation of both medications; Rxs sent to pharmacy Lizy Capone MD [facility]06-04-2025 Telephone encounter Note* Telephone Encounter - Josselin Baxter RN - 09/07/2024 1:48 PM EDT Dorys with [facility] calling with pt update for PCP. Patient was evaluated in EC on 09/04/24 and was wasordered doxycycline and benzonatate for lower respiratory infection. At that time, EC provider did consider sending pt to ER, but after further assessment and strict precautions explained during visit, patient was able to return home. Dorys would like PCP to know that patient still has course crackles in lower lung areas, more in the right than left, and having green sputum production. No severe sx's noted. Pt is to complete her antibiotic tomorrow. Pt's NOV is scheduled with Dr. Capone on 09/22. Please call Nurse Dorys if PCP would aleyda to extend treatment or for any other orders. [phone]. Josselin Baxter RN [facility]06-03-2025 Consult note Author Robinson Kancherla [facility] Note Date/Time September 06, 2024 8:56a m [facility] Medical Records Department [address] [place] [address] Pre-Anesthesia Evaluation 09/06/24 0844 MR#: [id number] Acct: [id number] Name: MARI LOPEZ Rep #:[id number] : 1940 84 From: Robinson Hyman MD PCP: Miryam Orozco COOKER MECHANIC-C Status:REG S DC Y Race: C Location: [place] [address] ASA Classification* ASA Classification ASA Classification: 3 [...] 08/22/24 TSH 1.750 uIU/mL (0.300-4.200) 07/25/24 05:16 07/06 04/30 COAG PT 16.1 SECONDS (11.7-14.9) H 05/02/24 19:47 04/07 10/28 Pre-Assessment Diagnosis/Proposed Procedure Planned Operative Procedure(s): DEBRIDEMENT OF RIGHT LEG WOUND PLACEMENT OF SKINGRAFT Anesthesia History Anesthesia History - planning rn: Anesthesia History - planning rn Hx Hospitalization No 09/04/24 00:24 Any Problems [...] take am of surgery PONV PONV - planning rn: PONV - planning rn Female Yes 09/02/24 11:04 HX of Motion [...] 09/06/24 08:12 Respiratory Assessment Respiratory Assessment - planning rn: Respiratory Tract Infection Hx - planning rn Hx Respiratory Tract Infection No 09/02/24 11:04 Any additional information?: Yes Hx Respiratory Tract Infection: Yes History of Anesthesia Respiratory Infection details: Patient was recently put on doxycycline for lung infection. She has only been on it for a couple days. STOP Sleep Apnea STOP Sleep Apnea - planning rn: STOP Sleep Apnea - planning rn Hx Hypertension Yes 09/04/24 00:24 Hx Sleep [...] Tobacco Use History Tobacco Use History - planning rn: Tobacco Use History - planning rn Tobacco Use Non-smoker 12/26/21 07:36 Smoking Status Never smoker 09/02/24 11:04 Hx Tobacco Use No 09/02/24 11:04 Years Smoking Packs Smoked per Day Smoking Cessation Date was within the last 15 years Hx Smoking Cessation Date Hx Smoking Cessation Counseling Hematologic Medial History Hematologic Hx - planning rn: Hematologic Medical Hx - information support project manager Hx of Blood Transfusion Yes 09/02/24 11:04 [...] confused, unrespo /Reproduction History /Reproductive History - planning rn: /Reproductive Hx- planning rn Hx Now No 09/02/24 11:04 Gestational Age [...] bisacodyl 10 mg rectal suppository 10 mg SD X1 PRN Con stipation #1 ea 06/09/24 [...] tablet 5 mg PO QHS #20 tabs 2 5 09/04/24 Rx cholecalciferol (vitamin D3) 25 50 mcg PO DAILY supple ment 09/05/24 09/05/24 History mcg (1,000 unit) capsule dextromethorphan-guaifenesin 30 1 tab PO Q12H 09/05/24 Unknown History mg-600 mg tablet extended psyygbk47 hr (Mucinex DM) furosemide 40 mg tablet [...] However there are still present throughout.) 09/06/24 4727 <Electronically signed by Robinson padilla MD> Date _ Robinson Hyman MD [facility] Signature: Date CC: ~ Signed [facility] Work Phone: 1(793) 810-406706-03-2025 Procedure [facility] 09-06-2024 History and physical note Author Gonzalo Lomax [facility] Note Date/Time September 06, 2024 7:36a m [facility] Medical Records Department [address] [place] [address] H&P Exam - Surgical 09/06/24 0734 MR#: [id number] Acct: [id number] Name: MARI LOPEZ Rep #:[id number] : 1940 84 From: Gonzalo Lomax MD PCP: BROOKLYN Aguillon Status:REG S DC Location: [place] [address] HPI - General HPI Narrative History of Wound: Mari oLpez is a delightful 84-year-old female who presents today as a referral from her annual campaign manager for a right lower extremity hematoma that [...] been recovering at a skillednursing facility near [facility] ever since. She was doing welloverall from [...] and endorses good dressing changes at the jail. She is not interested in staying at the jail while the VAC therapy is in place [...] and evaluated. Ready to proceed with surgery. [facility] Medical History Wears glasses Post-menopausal Open wound [...] bisacodyl 10 mg rectal suppository 10 mg SD X1 PRN Con stipation #1 ea 06/09/24 [...] 09/05/24 Unknown History mg-600 mg tablet extended hr (Mucinex DM) furosemide 40 mg tablet [...] 3 times per week (if discharged from jail will need home health 3 times per [...] BROOKLYN Orozco; Dr. Gonzalo Lomax MD~ Signed [facility] Work Phone: [phone]) 688-484706-02-2025 Telephone encounter Note* Telephone Encounter - Alex Lackey MA - 09/05/2024 3:15 PM EDT Pt notified and voiced understanding. Alex Lackey MA [facility]06-02-2025 Miscellaneous Notes* Telephone Encounter - Alex Lackey MA - 09/05/2024 3:15 PM EDT Pt notified and voiced understanding. Alex Lackey MA * Telephone Encounter - Lizy Capone MD - 09/05/2024 2:35 PM EDT Med list reviewed and prescriptions sent to [facility]. May stop Eliquis and Protonix Lizy Capone [...] to stay on will need refilled to [facility]. Asking for this to be done BHUMIKA as she is almost out of medications. Alex Lackey MA documented in this encounterBar[facility]06-[facility] Telephone encounter Note * Telephone Encounter - Lizy Capone MD - 09/05/2024 2:35 PM EDT Med list [facility] May stop Eliquis and Protonix Lizy Capone MD [facility]06-02-2025 Telephone encounter Note* Telephone Encounter - Alex [...] to stay on will need refilled to [facility]. Asking for this to be done BHUMIKA as she is almost out of medications. Alex Lackey MA [facility]06-02-2025 Telephone encounter Note* Telephone Encounter - Mulugeta Jennings APRN.CNP - 09/05/2024 7:24 AM EDT The following approved medication requests have been transmitted electronically. Requested Prescriptions Pending Prescriptions Disp Refills levothyroxine (LEVOXYL) 125 mcg tablet 90 tablet 3 Sig: Take 1 tablet by mouth once daily. Take on empty stomach. For thyroid. Mulugeta Jennings APRN.CNP [facility]06-02-2025 Miscellaneous Notes* Telephone Encounter - Mulugeta Jennings [...] 05, 2024 6:49 AM documented in this encounterBarney [facility]06-[facility]-2025 Telephone encounter Note * Telephone Encounter - [...] Zuluaga LPN September 05, 2024 6:49 AM [facility]06-01-2025 NoteHNO ID: [id number] Author: DEACON VALDEZ APRN.SAGGER MAKER Service: ? Author Type: Nurse Practitioner Type: Progress Notes Filed: 09/04/2024 14:51 Note Text: This note was created using Festicket. Subjective Mari Lopez is a 84 year old female. HPI Patient presents today complaining of some shortness of breath and wheezing which has been ongoing for the last 2 weeks. She denies any fevers. She notes that she was recently discharged from [facility] after having been hospitalized for sepsis. She [...] - BENZONATATE 100 MG CAPSULE Deacon Valdez APRN.CJU[facility]06-01-2025 History of Present illness Narrative* Deacon Valdez APRN.SAGGER MAKER - 09/04/2024 2:48 PM EDT This note was created using LOOKCASTriter. Subjective Mari Lopez is a 84 year old female. HPI Patient presents today complaining of some shortness of breath and wheezing which has been ongoing for the last 2 weeks. She denies any fevers. She notes that she was recently discharged from [facility] after having been hospitalized for sepsis. She [...] CAPSULE Deacon Valdez APRN.CJ documented in this encounterBarney [facility]05-29-2025 Telephone encounter Note * Telephone Encounter - Analia Gracia RN - 09/01/2024 6:07 PM EDT Called and left a detailed voicemail notifying Lora from [facility] of providers message. Clinic phone number was left in case she had any questions. Analia Gracia RN [facility]05-29-2025 Miscellaneous Notes* Telephone Encounter - Analia Gracia RN - 09/01/2024 6:07 PM EDT Called and left a detailed voicemail notifying Lora from [facility] of providers message. Clinic phone number was left in case she had any questions. Analia Gracia RN * Telephone Encounter - Lizy Capone MD - 08/30/2024 4:55 PM EDT OK to stay on iron as she is taking it. OK for pain med orders Mirena added to Med list. . Lizy Capone MD * Telephone Encounter - Lora Najera RN - 08/30/2024 10:36 AM EDT Lora from [facility] calls and reports that patient started with home health services. Lora makes note of a couple different things: Patient is on iron tablets which is contradicted for someone with peanut allergies. Patient has been taking medication with no issues. Patient had discharged from [facility] with oxycodone orders of 5 mg every morning then 5 mg q4h PRN Pain. Lora does not think patient is taking medication regularly but asking if PCP ok with those orders? Patient has mirena IUD. Asking if that can be noted on patient's medication list? Please review and advise, Lora Najera RN documented in this encounterBarney [facility] Center05-29-2025 Progress note Author Gonzalo Lomax [facility] Note Date/Time September 01, 2024 3:14p m [facility] [address] [place] [address] Progress Note - Wound Care 09/01/24 1512 MR#: [id number] Acct: [id number] Name: MARI LOPEZ Rep #:[id number] : 1940 84 From: Gonzalo Lomax MD PCP: Miryam Orozco COOKER MECHANICRonald Status:REG R CR Location: History of Present Illness Date of Service: 09/01/24 History of Wound: Mari Lopez is a delightful 84-year-old female who presents today as a referral from her annual campaign manager for a right lower extremity hematoma that [...] ICU. [facility] since. She was doing welloverall from [...] and endorses good dressing changes at the jail. She is not interested in staying at the jail while the VAC therapy is in place [...] Charges/Coding Visit Charges Office Visits / Consults: 24878 OV L3 Est 20min Physical Exam Narrative [...] Date Recorded By Document 08/15/24 09:19 ML [id number] 08/15/24 09:22 ML Document 08/22/24 09:46 DL [id number] 08/22/24 09:56 DL Document 09/01/24 14:39 JF [id number] 09/01/24 14:49 JF 08/15/24 08/22/24 09/01/24 09:19 09:46 14:39 - Today's Visit Information Type of service Follow-up Visit Follow-up Visit Follow-up Visit (Physician/SAGGER MAKER (Physician/SAGGER MAKER (Physician/SAGGER MAKER ) ) ) Arrival Mode Wheelchair Ambulatory, [...] Date Recorded By Document 08/15/24 09:19 ML [id number] 08/15/24 09:22 ML Edit Result 08/15/24 09:19 ML (1) [id number] 08/15/24 09:26 ML Document 08/22/24 09:46 DL [id number] 08/22/24 09:56 DL Document 09/01/24 14:39 JF [id number] 09/01/24 14:49 JF (1) RLE - Slough/Fibrin [...] Date Recorded By Document 08/15/24 09:26 BMF [id number] 08/15/24 09:35 BMF Document 08/22/24 10:35 BMF [id number] 08/22/24 10:48 BMF Edit Result 08/22/24 10:35 BMF (1) [id number] 08/31/24 08:41 BMF Document 09/01/24 14:59 DS [id number] 09/01/24 15:02 DS (1) RLE - Debridement, [...] Date Recorded By Document 08/15/24 09:53 DL [id number] 08/15/24 09:54 DL Document 08/22/24 11:11 [id number] 08/22/24 11:11 JF Edit Result 08/22/24 11:11 JF (1) [id number] 08/22/24 11:23 JF (1) RLE - Setting [...] Summary of Care Provided Yes Facility Type Residential Care Facility Orders Sent Yes Assessment/Plan Assessment/Plan [...] 3 times per week (if discharged from jail will need home health 3 times per [...] for insurance prior authorization are as follows: [id number], [id number] 09/01/24 1514 <Electronically signed by Gonzalo Lomax MD> Cosigner Signature (if applicable): CC: ~ Signed [facility] Work Phone: 1(966) 671-914705-27-2025 Telephone encounter Note* Telephone Encounter - Lizy Capone MD - 08/30/2024 4:55 PM EDT OK to stay on iron as she is taking it. OK for pain med orders Mirena added to Med list. . Lizy Capone MD [facility]05-27-2025 Telephone encounter Note* Telephone Encounter - Lora Najera RN - 08/30/2024 10:36 AM EDT Lora from [facility] calls and reports that patient started with home health services. Lora makes note of a couple different things: Patient is on iron tablets which is contradicted for someone with peanut allergies. Patient has been taking medication with no issues. Patient had discharged from [facility] with oxycodone orders of 5 mg every morning then 5 mg q4h PRN Pain. Lora does not think patient is taking medication regularly but asking if PCP ok with those orders? Patient has mirena IUD. Asking if that can be noted on patient's medication list? Please review and advise, Lora Najera RN [facility]05-19-2025 Progress note Author Gonzalo Lomax [facility] Note Date/Time August 22, 2024 12:08 pm [facility] [address] [place] [address] Progress Note - Wound Care 08/22/24 1146 MR#: [id number] Acct: [id number] Name: MARI LOPEZ Rep #:[id number] : 1940 84 From: Gonzalo Lomax MD PCP: Miryam Orozco COOKER MECHANIC-C Status:REG R CR Location: WC ADDENDUM by Dr. Gonzalo Lomax MD on 08/22/24 at 1208 Addendum Addendum: elle kline CPT: 02408, 74130 Procedures Integumentary 111xxx-113xx: 50749 Socorro subq tissue 20 sq cm/< Add On Codes: 57493 Socorro subq tissue add-on 08/22/24 1208<Electronically signed by Gonzalo Lomax MD> Cosigner Signature (if applicable): cc: ~* Signed ADDENDUM by Dr. Gonzalo Lomax MD on 08/22/24 at 1207 Procedures Integumentary 111xxx-113xx: 67062 [place] subq tissue 20 sq cm/< Add On Codes: 24910 [place] subq tissue add-on 08/22/24 1207<Electronically signed by Gonzalo Lomax MD> Cosigner Signature (if applicable): cc: ~* Signed History of Present Illness Date of Service: 08/22/24 History of Wound: Mari Lopez is a delightful 84-year-old female who presents today as a referral from her annual campaign manager for a right lower extremity hematoma that [...] been recovering at a skillednursing facility near [facility] ever since. She was doing welloverall from [...] and endorses good dressing changes at the jail. She is not interested in staying at the jail while the VAC therapy is in place [...] 09:46 08/22/24 09:46 Charges/Coding Procedures Integumentary 111xxx-113xx: 24319 [place] subq tissue 20 sq cm/< Physical [...] Measurements and Additional Note: Post-Debridement Measurements/Treatment MICHELL Lara Nurse 1 - General Ulcer Assessment Start: 08/15/24 09:19 Freq: Status: Active Protocol: SMITH Activity Type Activity Date Activity User E-sign Co-sign Detail Recorded Client Recorded Date Recorded By Document 08/15/24 09:19 ML [id number] 08/15/24 09:22 ML Document 08/22/24 09:46 DL [id number] 08/22/24 09:56 DL 08/15/24 08/22/24 09:19 09:46 WC - Today's Visit Information Type of service Follow-up Visit Follow-up Visit (Physician/SAGGER MAKER (Physician/SAGGER MAKER ) ) Arrival Mode Wheelchair Ambulatory, Walker [...] Numeric Is Patient Pain Free? Yes Yes MICHELL Lara Nurse 1 - General Ulcer Measurement Start: 08/15/24 09:19 Freq: Status: Active Protocol: Activity Type Activity Date Activity User E-sign Co-sign Detail Recorded Client Recorded Date Recorded By Document 08/15/24 09:19 ML [id number] 08/15/24 09:22 ML Edit Result 08/15/24 09:19 ML (1) [id number] 08/15/24 09:26 ML Document 08/22/24 09:46 DL [id number] 08/22/24 09:56 DL (1) RLE - Slough/Fibrin => Yes - Necrosis Amt => Medium (34-66%) - Necrotic Tissue Type => Eschar - Texture (Laura-wound Skin Appearance) => Assessed - Moisture (Lauar-wound Skin Appearance) => Assessed - Temperature (Laura-wound [...] Recorded Date Recorded By Document 08/15/24 09:26 [facility] [id number] 08/15/24 09:35 BM Document 08/22/24 10:35 [facility] [id number] 08/22/24 10:48 [facility] 08/15/24 08/22/24 09:26 10:35 Wound Center Nurse [...] Date Recorded By Document 08/15/24 09:53 DL [id number] 08/15/24 09:54 DL Document 08/22/24 11:11 JF [id number] 08/22/24 11:11 JF Edit Result 08/22/24 11:11 JF (1) [id number] 08/22/24 11:23 JF (1) RLE - Setting [...] Summary of Care Provided Yes Facility Type Residential Care Facility Orders Sent Yes Assessment/Plan Assessment/Plan [...] 3 times per week (if discharged from jail will need home health 3 times per [...] for insurance prior authorization are as follows: [id number], [id number] 08/22/24 1158 <Electronically signed by Gonzalo Lomax MD> Cosigner Signature (if applicable): CC: ~ Signed [facility] Work Phone: 1(110) 698-896405-19-2025 History of Present illness Narrative* Lizy Capone [...] pt was re-admitted back in April into [facility] ICU for sepsis and kidney failure. Pt was intubated while admitted. She was then life flighted to [facility] ICU to see Neurology on 05/04/24 and discharged on 05/18/24 to a Rehab Facility, staying until 06/10/24. Pt was then d/c to [facility] rehab on 06/10/24 and has not yet [...] of seizure x 2 during admission at [facility]. Pt notes she had 3 seizures while her flight to [facility]. Is scheduled with [facility] in September. Pt reports today that she is supposed to be onmedication for 6 months. Nephro - Follows with Dr. Casper. Hx of CKD. When in the hospital pt had kidney failure. Did not require dialysis. Cardio - Follows with [facility], Dr. Jackson. Hx of heart failure, and PE. Pt takes Eliquis5 mg bid, ASA 81 mg once daily, Zestoretic 10-12.5 mg once daily, Lasix 40 mg once daily and ToprolXL 50 mg once daily. Pulm - Hx of pulmonary issues. Schedule with [facility], did see [facility]. Anemia - [...] reports an incident that occurred while at [place], where she was trying to get into her car, Therapist did not lock her wheelchair. She hit her right lower leg on the running board of her car causing a hematoma. Following with Dr. Lomax, has had to have area cleaned out a couple of times. Wound Center put in an order for [facility] HH to change dressing 3x per [...] and thrombophlebitis of femoral vein (deep) (superficial) ([facility]) Unspecified sleep apnea Previous Surgical History PAST SURGICAL HISTORY Procedure Laterality Date ANESTHESIA HERNIA REPAIR LOWER ABDOMEN NOS 04/2004,05/11 gortex put in on 05/11 then taken out06/08 ARTHRP KNE CONDYLE&PLATU MEDIAL&LAT COMPARTMENTS 1990 bilateral total knee s([place]) ARTHRP KNE CONDYLE&PLATU MEDIAL&LAT COMPARTMENTS 10/24/2004 bilateral [...] shoulder. Dr. Klaus Omalley with [facility] Family History FAMILY HISTORY Problem Relation [...] mg 24 hr tablet Take by mouth. Ioogdvaehhq-Zkfnyvwem-Eus C-Mn (GLUCOSAMINE CHONDROITIN MAXSTR) 500-400 mg cap Take 1 capsule by mouth three times daily. COMPOUNDED PRESCRIPTION Stair lift DAILY-LUISITO tablet TAKE 1 TABLET BY MOUTH ONCE DAILY. uwuhfgl-swieohnnm-mtzwqlp D3 (CALCIUM 500+D) 500 mg(1,250mg) -200 unit [...] Moderate Lizy Capone MD documented in this encounterBarney Children'[facility] Center05-19-2025 NoteHNO ID: [id number] Author: LIZY CAPONE MD Service: ? Author [...] pt was re-admitted back in April into [facility] ICU for sepsis and kidney failure. Pt was intubated while admitted. She was then life flighted to [facility] ICU to see Neurology on 05/04/24 and discharged on 05/18/24 to a Rehab Facility, staying until 06/10/24. Pt was then d/c to [facility] rehab on 06/10/24 and has not yet [...] of seizure x 2 during admission at [facility]. Pt notes she had 3 seizures while her flight to [facility]. Is scheduled with [facility] in September. Pt reports today that she is supposed to be on medication for 6 months. Nephro - Follows with Dr. Casper. Hx of CKD. When in the hospital pt had kidney failure. Did not require dialysis. Cardio - Follows with [facility], Dr. Jackson. Hx of heart failure, and PE. Pt takes Eliquis 5 mg bid, ASA 81 mg once daily, Zestoretic 10-12.5 mg once daily, Lasix 40 mg once daily and Toprol XL 50 mg once daily. Pulm - Hx of pulmonary issues. Schedule with [facility], did see [facility]. Anemia - [...] reports an incident that occurred while at [place], where she was trying to get into her car, Therapist did not lock her wheelchair. She hit her right lower leg on the running board of her car causing a hematoma. Following with Dr. Lomax, has had to have area cleaned out a couple of times. Wound Center put in an order for [facility] HH to change dressing 3x per [...] CONDYLEANDPLATU MEDIALANDLAT COMPARTMENTS 1990 bilateral total knee s([place]) ARTHRP KNE CONDYLEANDPLATU MEDIALANDLAT COMPARTMENTS 10/24/2004 bilateral [...] shoulder. Dr. Klaus Omalley with [facility] Family History FAMILY HISTORY Problem Relation [...] tablet by m (more content not included)... [place] [address]-12-2025 History and physical note Author Gonzalo Lomax [facility] Note Date/Time August 15, 2024 9:52a m [facility] [address] [place] [address] H&P Exam - Wound Care 08/15/24 0841 MR#: [id number] Acct: [id number] Name: MARI LOPEZ Rep #:[id number] : 1940 84 From: Gonzalo Lomax MD PCP: Miryam Orozco COOKER MECHANIC-C Status:REG R CR Location: History of Present Illness Date of Service: 08/15/24 History of Wound: Mari Lopez is a delightful 84-year-old female who presents today as a referral from her annual campaign manager for a right lower extremity hematoma that [...] ICU. She has been recovering at a skilledursing facility near [facility] ever since. She was doing welloverall from [...] Dakin's soaked Kerlix. No fevers or chills. [facility] Medical History Urinary incontinence Osteopenia Spinal osteophytosis [...] bisacodyl 10 mg rectal suppository 10 mg SD X1 PRN Con stipation #1 ea 06/09/24 [...] tolerated procedure well Charges/Coding Procedures Integumentary 111xxx-113xx: 41365 Socorro musc/fascia 20 sq cm/< Add On Codes: 00739 Socorro musc/fascia add-on (x 3 units ) [...] precautions. Patient happy with the plan 08/15/24 0952 <Electronically signed by Gonzalo Lomax MD> Cosigner Signature (if applicable): CC: ~ Signed [facility] Work Phone: 1(188) 149-873405-09-2025 Evaluation note* Diagnosis Onset Date Resolution Status Admit Date Hematoma of right lower leg acute August 12, 2024 1:02pm Wound of right lower extremity acute August 12, 2024 1:02pm Wound of right lower extremity acute September 01, 2024 2:45pm Seizure disorder resolved September 8:38am Wound of right lower extremity acute September 06, 2024 7:22am S/P flap graft acute September 19, 2024 2:00pm JOSE (acute kidney injury) acute September 28, 2024 8:00pm Generalized weakness acute September 28, 2024 8:00pm Left knee pain acute September 28, 2024 8:00pm Encephalopathy resolved September 28, 2024 8:00pm Hyperkalemia resolved September 28, 2 025 8:00pm Metabolic acidosis resolved September 052024 8:00pm Toxic metabolic encephalopathy resol kelsi September 28, 2024 8:00pm Tremulousness resolved September 28, 2024 8:00pm UTI (urinary tract infection) resolv ed September 28, 2024 8:00pm (HFpEF) heart failure with preserved ejection fraction acute October 04, 2024 2:29pm Appetite loss acute October 04, 2 025 2:29pm Atrial fibrillation acute October 04, 2024 2:29pm Bilateral knee pain acute October 04, 2024 2:29pm BMI 45.0-49.9, adult acute October 04, 2024 2:29pm Coronary artery disease acute J 2024 2:29pm Debility acute October 04, 2024 2:29pm DVT (deep venous thrombosis) acute October 04, 2024 2:29pm Essential (primary) hypertension acu te October 04, 2024 2:29pm GERD (gastroesophageal reflu x disease) acute October 04, 2024 2 :29pm Hyperlipidemia acute October 04, 2024 2:29pm Hypothyroidism acute October 04, 2024 2:29pm Insomnia acute October 04, 2024 2:29pm Iron deficiency anemia acute Ju 2024 2:29pm Left knee pain acute October 04, 2024 2:29pm Lymphedema acute October 04, 2024 2:29pm Obstructive sleep apnea acute J [email or web address] 2:29pm Hyperkalemia resolved October 04 2:29pm Metabolic acidosis resolved October 042024 2:29pm Seizure disorder resolved October 2:29pm Toxic metabolic encephalopathy resol kelsi October 04, 2024 2:29pm Tremulousness resolved October 04, 2 025 2:29pm UTI (urinary tract infection) resolv ed October 04, 2024 2:29pm S/P flap graft acute October 10, 2024 1:41pm Wound of right lower extremity acute October 10, 2024 1:41pm [facility] Work Phone: 1(850) 667-857005-09-2025 Evaluation note* Diagnosis Onset Date Resolution Status Admit Date Hematoma of right lower leg acute August 12, 2024 1:02pm Wound of right lower extremity acute August 12, 2024 1:02pm Wound of right lower extremity acute September 01, 2024 2:45pm Seizure disorder resolved September 8:38am Wound of right lower extremity acute September 06, 2024 7:22am S/P flap graft acute September 19, 2024 2:00pm JOSE (acute kidney injury) acute September 28, 2024 8:00pm Generalized weakness acute September 28, 2024 8:00pm Left knee pain acute September 28, 2024 8:00pm Encephalopathy resolved September 28, 2024 8:00pm Hyperkalemia resolved September 28 025 8:00pm Metabolic acidosis resolved September 052024 8:00pm Toxic metabolic encephalopathy resol kelsi September 28, 2024 8:00pm Tremulousness resolved September 28, 2024 8:00pm UTI (urinary tract infection) resolv ed September 28, 2024 8:00pm (HFpEF) heart failure with preserved ejection fraction acute October 04, 2024 2:29pm Appetite loss acute October 04, 2 025 2:29pm Atrial fibrillation acute October 04, 2024 2:29pm Bilateral knee pain acute October 04, 2024 2:29pm BMI 45.0-49.9, adult acute October 04, 2024 2:29pm Chronic renal failure (CRF), stage 4 (severe) acute October 04, 2024 2:29pm Coronary artery disease acute J 2024 2:29pm Debility acute October 04, 2024 2:29pm DVT (deep venous thrombosis) acute October 04, 2024 2:29pm Essential (primary) hypertension acu te October 04, 2024 2:29pm GERD (gastroesophageal reflu x disease) acute October 04, 2024 2 :29pm Hyperlipidemia acute October 04, 2024 2:29pm Hypothyroidism acute October 04, 2024 2:29pm Insomnia acute October 04, 2024 2:29pm Iron deficiency anemia acute Ju 2024 2:29pm Left knee pain acute October 04, 2024 2:29pm Lymphedema acute October 04, 2024 2:29pm Obstructive sleep apnea acute J 2024 2:29pm Hyperkalemia resolved October 04 2:29pm Metabolic acidosis resolved October 042024 2:29pm Seizure disorder resolved October 2:29pm Toxic metabolic encephalopathy resol kelsi October 04, 2024 2:29pm Tremulousness resolved October 04, 2 025 2:29pm UTI (urinary tract infection) resolv ed October 04, 2024 2:29pm S/P flap graft acute October 10, 2024 1:41pm Wound of right lower extremity acute October 10, 2024 1:41pm Acute on chronic anemia chronic J 2024 1:45pm [facility] Work Phone: 1([phone]) 879-135205-09-2025 Evaluation note* Diagnosis Onset Date Resolution Status Admit Date Hematoma of right lower leg acute August 12, 2024 1:02pm Wound of right lower extremity acute August 12, 2024 1:02pm Wound of right lower extremity acute September 01, 2024 2:45pm Seizure disorder resolved September 8:38am Wound of right lower extremity acute September 06, 2024 7:22am S/P flap graft acute September 19, 2024 2:00pm JOSE (acute kidney injury) acute September 28, 2024 8:00pm Generalized weakness acute September 28, 2024 8:00pm Left knee pain acute September 28, 2024 8:00pm Encephalopathy resolved September 28, 2024 8:00pm Hyperkalemia resolved September 28, 2 025 8:00pm Metabolic acidosis resolved September 052024 8:00pm Toxic metabolic encephalopathy resol kelsi September 28, 2024 8:00pm Tremulousness resolved September 28, 2024 8:00pm UTI (urinary tract infection) resolv ed September 28, 2024 8:00pm (HFpEF) heart failure with preserved ejection fraction acute October 04, 2024 2:29pm Appetite loss acute October 04, 2 025 2:29pm Atrial fibrillation acute October 04, 2024 2:29pm Bilateral knee pain acute October 04, 2024 2:29pm BMI 45.0-49.9, adult acute October 04, 2024 2:29pm Chronic renal failure (CRF), stage 4 (severe) acute October 04, 2024 2:29pm Coronary artery disease acute J 2024 2:29pm Debility acute October 04, 2024 2:29pm DVT (deep venous thrombosis) acute October 04, 2024 2:29pm Essential (primary) hypertension acu te October 04, 2024 2:29pm GERD (gastroesophageal reflu x disease) acute October 04, 2024 2 :29pm Hyperlipidemia acute October 04, 2024 2:29pm Hypothyroidism acute October 04, 2024 2:29pm Insomnia acute October 04, 2024 2:29pm Iron deficiency anemia acute Ju 2024 2:29pm Left knee pain acute October 04, 2024 2:29pm Lymphedema acute October 04, 2024 2:29pm Obstructive sleep apnea acute 2024 2:29pm Hyperkalemia resolved October 04 2:29pm Metabolic acidosis resolved October 042024 2:29pm Seizure disorder resolved October 2:29pm Toxic metabolic encephalopathy resol kelsi October 04, 2024 2:29pm Tremulousness resolved October 04 025 2:29pm UTI (urinary tract infection) resolv ed October 04, 2024 2:29pm Acute on chronic anemia chronic J wilbert 2024 1:45pm S/P flap graft acute October 24, 2024 9:15am Wound of right lower extremity acute October 24, 2024 9:15am [facility] [employer] Work Phone: 1([phone]) 892-203405-09-2025 Evaluation note* Diagnosis Onset Date Resolution Status Admit Date Hematoma of right lower leg acute August 12, 2024 1:02pm Wound of right lower extremity acute August 12, 2024 1:02pm Wound of right lower extremity acute September 01, 2024 2:45pm Seizure disorder resolved September 8:38am Wound of right lower extremity acute September 06, 2024 7:22am S/P flap graft acute September 19, 2024 2:00pm JSOE (acute kidney injury) acute September 28, 2024 8:00pm Generalized weakness acute September 28, 2024 8:00pm Left knee pain acute September 28, 2024 8:00pm Encephalopathy resolved September 28, 2024 8:00pm Hyperkalemia resolved September 28, 2 025 8:00pm Metabolic acidosis resolved September 052024 8:00pm Toxic metabolic encephalopathy resol kelsi September 28, 2024 8:00pm Tremulousness resolved September 28, 2024 8:00pm UTI (urinary tract infection) resolv ed September 28, 2024 8:00pm (HFpEF) heart failure with preserved ejection fraction acute October 04, 2024 2:29pm Appetite loss acute October 04, 2 025 2:29pm Atrial fibrillation acute October 04, 2024 2:29pm Bilateral knee pain acute October 04, 2024 2:29pm BMI 45.0-49.9, adult acute October 04, 2024 2:29pm Chronic renal failure (CRF), stage 4 (severe) acute October 04, 2024 2:29pm Coronary artery disease acute 2024 2:29pm Debility acute October 04, 2024 2:29pm DVT (deep venous thrombosis) acute October 04, 2024 2:29pm Essential (primary) hypertension acu te October 04, 2024 2:29pm GERD (gastroesophageal reflu x disease) acute October 04, 2024 2 :29pm Hyperlipidemia acute October 04, 2024 2:29pm Hypothyroidism acute October 04, 2024 2:29pm Insomnia acute October 04, 2024 2:29pm Iron deficiency anemia acute Ju 2024 2:29pm Left knee pain acute October 04, 2024 2:29pm Lymphedema acute October 04, 2024 2:29pm Obstructive sleep apnea acute 2024 2:29pm Hyperkalemia resolved October 04 2:29pm Metabolic acidosis resolved October 042024 2:29pm Seizure disorder resolved October 2:29pm Toxic metabolic encephalopathy resol kelsi October 04, 2024 2:29pm Tremulousness resolved October 04, 025 2:29pm UTI (urinary tract infection) resolv ed October 04, 2024 2:29pm Acute on chronic anemia chronic J wilbert 2024 1:45pm S/P flap graft acute October 24, 2024 9:15am Wound of right lower extremity acute October 24, 2024 9:15am Atrial fibrillation, chronic chronic October 25, 2024 2:12pm (HFpEF) heart failure with preserved ejection fraction inactive October 25, 2024 2:12pm [facility] Work Phone: 1(355) 490-436604-25-2025 Discharge summary Author Jean Paul Ha [facility] Note Date/Time July 29, 2024 3:4 2pm [facility] Medical Records Department [address] [place] [address] Emergency Department Summary 07/29/24 MR#: [id number] Acct: [id number] Name: MARI LOPEZ Rep #:[id number] : 1940 84 From: Jean Paul Vieyra PCP: BROOKLYN Aguillon Status:REG E R Location: ED HPI History [...] oxycodone at facility to help with pain. [facility] Medical History Urinary incontinence Osteopenia Spinal [...] bisacodyl 10 mg rectal suppository 10 mg SD X1 PRN Con stipation #1 ea 06/09/24 [...] clinician: N/A This note was generated with Pickie dictation software. It may contain incorrectwords, spelling, [...] 0RF bisacodyl 10 mg Suppository 10 mg SD X1 PRN (Reason: Constipation) Qty: 1 0RF [...] Orozco NP-C [Primary Care Provider] - [facility] [Non-Staff] - 1 Week Activity Restrictions/Additional Instructions: X-ray right leg negative. Continue ice to help with burning. Jeancarlos wrap to help with compression. You have medication of oxycodone use at facility. Daily wound care. Follow-up with wound care clinic to make sure appropriate healing. Print Language: Barbadian Disposition Disposition: Home, Self Care What to do if you have Problems For any increased pain, shortness of breath, bleeding, nausea or vomiting, chestpain, or any unexpected problems, contact your Primary Care Provider. Call [facility] ([phone]) or report to the closest Emergency Room. Call 911 if necessary. 07/29/24 1542 <Electronically signed by Jean Paul Vieyra> Cosigner Signature (if applicable): CC: BROOKLYN Orozco ~ Signed [facility] Work Phone: 1(879) 947-613304-25-2025 Radiology Diagnostic study [facility]03-31-2025 Telephone encounter Note* Telephone Encounter - [...] 90 days. Authorizing Provider: MULUGETA JENNINGS APRN.CNP [facility]03-31-2025 Miscellaneous Notes* Telephone Encounter - Mulugeta Jennings [...] 01, 2024 4:40 PM documented in [facility] Telephone encounter Note * Telephone Encounter - [...] Isabell Dove July 01, 2024 4:40 PM [facility]03-07-2025 [facility]02-13-2025 [facility]02-12-2025 Evaluation note* Diagnosis Onset Date Resolution Status Admit Date Chronic renal failure (CRF), stage 4 (severe) acute May 18, 2024 7:11pm Debility acute May 18, 2024 7:11pm Dysphagia acute May 18, 2024 7:11pm Generalized weakness acute Febr uary 2024 7:11pm Heme + stool acute May 7:11pm Hyperphosphatemia acute Februar y 2024 7:11pm Left wrist pain acute May 18, 2024 7:11pm Acute on chronic anemia chronic F ebruary 2024 7:11pm Seizure disorder chronic May 18, 2024 7:11pm Acute hyperkalemia resolved Febr ry 2024 7:11pm Acute on chronic back pain resolved May 18, 2024 7:11pm Acute renal failure superimp osed on stage 3b chronic kidney disease resolved May 18 7:11pm Acute respiratory failure wi th hypoxemia resolved May 18, 7:11pm Bradycardia resolved May 7:11pm Encephalopathy resolved [...] 2024 7:11pm Chronic kidney disease deleted Fe 2024 7:11pm Hematoma of right lower leg acute August 12, 2024 1:02pm Wound of right lower extremity acute August 12, 2024 1:02pm Wound of right lower extremity acute September 01, 2024 2:45pm [facility] Work Phone: 1(854) 527-765602-12-2025 Evaluation note* Diagnosis Onset Date Resolution Status [...] failure wi th hypoxemia resolved May 18, 7:11pm Bradycardia resolved May 7:11pm Encephalopathy resolved [...] 2024 7:11pm Chronic kidney disease deleted Fe 2024 7:11pm Hematoma of right lower leg acute August 12, 2024 1:02pm Wound of right lower extremity acute August 12, 2024 1:02pm Wound of right lower extremity acute September 01, 2024 2:45pm Seizure disorder chronic September 8:38am [facility] [employer] [facility] Work Phone: 1(960) 304-137302-12-2025 Evaluation note* Diagnosis Onset Date Resolution Status [...] lower extremity acute September 06, 2024 7:22am [facility] Work Phone: 1([phone]) [phone] Evaluation note* Diagnosis Onset Date Resolution Status [...] failure wi th hypoxemia resolved May 18 025 7:11pm Bradycardia resolved May 7:11pm Encephalopathy [...] flap graft acute September 19, 2024 2:00pm [facility] [employer] [facility] Work Phone: 1([phone]) 171-683402-12-2025 Evaluation note* Diagnosis Onset Date Resolution Status [...] kidney injury) acute September 28, 2024 8:00pm [facility] Work Phone: 1([phone]) 175-211002-12-2025 Evaluation note* Diagnosis Onset Date Resolution Status [...] failure wi th hypoxemia resolved May 18 025 7:11pm Bradycardia resolved May 7:11pm Encephalopathy [...] kidney injury) acute September 28, 2024 8:00pm Generalized weakness acute September 28, 2024 8:00pm Hyperkalemia acute September 28, 2 8:00pm Left knee pain acute September 28, 2024 8:00pm Metabolic acidosis acute September 052024 8:00pm Toxic metabolic encephalopathy acute September 28, 2024 8:00pm Tremulousness acute September 28, 2024 8:00pm UTI (urinary tract infection) acute September 28, 2024 8:00pm Encephalopathy resolved September 28, 2024 8:00pm [facility] Work Phone: 1(230) 929-724802-12-2025 Miscellaneous Notes* Nursing Notes - Steffany Mishra [...] EST NG clogged, unable to unclog tube. [facility] notified. Attempted to place new NG, unable to advance tube. [facility] notified. * Plan of Care [...] oropharyngeal swallow function to most appropriately guide RUNNING INSTRUCTOR plan of care Outcome: Met * Plan of Care - Nazanin Kaye RD - 05/16/2024 1:31 PM EST Problem: Enteral Nutrition Goal: Feeding Tolerance Outcome: Progressing Nutrition Recommendations and Plan of Care: 1. Diet advancement pending MBS/per RUNNING INSTRUCTOR 2. Continue current enteral nutrition regimen: Nepro 1.8 @ 35 mL/hr- provides 840mL volume, 1512kcal, 68g pro, 134g CHO, 611mL free H2O - increase to 1pkt Prosource TF BID - provides additional 80kcal, 22g pro - at minimum recommend 30mL flushes q4 hrs to maintain tube patency 3. If nursing home enteral nutrition is anticipated, recommend transitioning to [...] pharyngeal swallow function to most appropriately guide RUNNING INSTRUCTOR plan of care Outcome: Ongoing * Plan [...] patient's dominant arm for PICC if possible. Joao Shafer DO Nephrology Fellow PGY-5 [facility] Pager [phone] * Plan of Care - Javed Sanchez [...] pharyngeal swallow function to most appropriately guide RUNNING INSTRUCTOR plan of care Outcome: Ongoing * Plan of Care - Adriana Lmia PT - 05/11/2024 10:40 AM EST Problem: [...] areas and protect. Order in Workday # [id number] Supplied on Unit Bed Surface: Standard mattress [...] Image Dressing Status Changed/New;Dry;Intact Closure None Assessment Moist;[place];Subcutaneous Fat;Edema Laura-Wound Assessment Blanchable;Dry;Ecchymotic;Edema Wound Length (cm) [...] notified of assessment and plan. Please page #[phone] or reconsult with any further needs. Analia [...] attention. Outcome: Ongoing * Nursing Notes - Ailyn Benitez RN - 05/11/2024 3:12 AM EST Vy Joseph notified:Patient just had 10 runs of V Tach; BP 128/60; MAP 87; HR 67; T 98.3; R 17. Not symptomatic. Says: I'm fine Ailyn Benitez RN * Nursing Notes - Jeff Liao RN - 05/10/2024 10:00 PM EST On admission to [facility], from SICU a dual RN initial assessment of skin condition was performed by KEVIN Kim and Ralph RN. Skin Assessment: Skin not within defined limits. - Wound(s) identified: Yes - Consult ordered: Yes - Photo taken and uploaded into notes in IHIS: Yes Bhupendra Score: 11 LDA Added:Yes Jeff Liao RN * Transfer Note - Vy Curry MD - 05/10/2024 5:50 PM EST Internal Medicine Transfer Note Patient: Mari Lopez, 1940, [id number] Physician: Vy Curry MD, PGY1, GM8 service [...] Macrocytic anemia Acute anemia likely due to REHABILITATION MEDICINE PHYSICIAN in the setting of acute illness and [...] line since removed. - Followings Dr. Gilmore (miter sawyer) every 6 months - Nephrology consulted, appreciate [...] Code Status: Full Code Disposition: Transferred to [facility], will likely go to [facility] when medically cleared Vy Curry MD Internal Medicine-Pediatrics PGY-1 [facility] 05/10/24 Hospital Course: On 05/01/24 EMS transferred patient to [facility] and then she became non responsiveand hypotensive requiring norepinephrine. EEG noted GPDs and neurology was consulted and reviewed EEG who believed it met criteria status epilepticus. Patient was transferred to [facility] on 05/04 for further neurological medical management. She was admitted to the MICU for critical care management. Per H&P: The patient initially presented to the [facility] ED 05/01/24 with AMS found to havesevere metabolic derangements (pH 7.0, acute renal failure with uremia, hyperkalemia, acidosis). She was intubated, initiated on broad spectrum antibiotics, and placed on vasopressors after inadequate response to 30 cc/kg IVF resuscitation. CTH on admission reportedly normal (reports not available or included in transfer paperwork, [facility] radiology contacted to push images). An infectious [...] and oriented Data Review: WBC/Hgb/Hct/Plts: 16.00/8.4/27.9/210 (05/10 650) Na/K+/Phos/Mg/Ca: 142/4.0/3.7/2.0/-- (05/09 2355) Bun/Creat/Cl/CO2/Glucose: 48/2.50/105/27/94 (05/09 [...] critical finding/s of endotracheal tube malposition with PRATIKDONNY ENNIS on 05/05/2024 9:59 AM. I personally viewed and interpreted these images and I have reviewed and approved this report. ABDOMEN 1 VIEW PORTABLE Final Result IMPRESSION: 1. Enteric tube projects over the stomach. 2. Mild gaseous distention of small bowel may reflect ileus. * Treatment Plan - Pratik Ennis, EMPLOYMENT PROGRAM REPRESENTATIVE-SAGGER MAKER - 05/10/2024 11:15 AM EST MICU CAREY [...] anemia - Acute anemia likely due to REHABILITATION MEDICINE PHYSICIAN in the setting of acute illness and anemia of chronic disease 2/2 CKD - Blood tinged secretion on 04/18 [...] jugular vein -still waiting on official read, BALA dopplers completed -05/08 CVC, line since removed -change heparin gtt to eliquis on 05/10 JOSE on CKD stage 4, non-oliguric - good urine output overnight with a total of 60mg lasix on 05/09 - Serum creatinine 1.5-1.6 for a recent baseline - Followings Dr. Gilmore (miter sawyer) every 6 months - Nephrology consulted - [...] TADEO. On 05/01/24 EMS transferred patient to [facility] and then she became non responsive and hypotensive requiring norepinephrine. EEG noted Gpds and neurology was consulted and reviewed EEG and met criteria status epilepticus. Patient was transferred to [facility] on 05/04 for further neurological medical management. [...] [NG/GT:1239.1] Out: 1300 [Urine:1300] WBC/Hgb/Hct/Plts: 16.00/8.4/27.9/210 (05/10 650) Na/K+/Phos/Mg/Ca: 142/4.0/3.7/2.0/-- (05/09 2355) Bun/Creat/Cl/CO2/Glucose: 48/2.50/105/27/94 (05/09 2355-05/10 1) VASC DUPLEX VENOUS EXTREMITY UPPER LEFT Final [...] been edited to reflect their recommendations. Connor Yessy KING pager [phone] MICU CAREY Pager numbers [phone] MICU DORIS pager [phone] [facility] ICU pager [phone] ICU [facility] pager [phone] ICU [facility]OPE[facility] pager [phone] * Plan of Care - Lamonte Hogan [...] Injury Outcome: Completed * Treatment Plan - CHRISTINE Jacinto - 05/09/2024 12:44 PM EST MICU CAREY [...] anemia - Acute anemia likely due to REHABILITATION MEDICINE PHYSICIAN in the setting of acute illness and anemia of chronic disease 2/2 CKD - Blood tinged secretion on 04/18 [...] 6 months ago - Followings Dr. Gilmore (miter sawyer) every 6 months - Nephrology consulted - [...] TADEO. On 05/01/24 EMS transferred patient to [facility] and then she became non responsive and hypotensive requiring norepinephrine. EEG noted Gpds and neurology was consulted and reviewed EEG and met criteria status epilepticus. Patient was transferred to [facility] on 05/04 for further neurological medical management. [...] edited to reflect their recommendations. Connor Ennis EMPLOYMENT PROGRAM REPRESENTATIVE-SAGGER MAKER pager [phone] MICU CAREY Pager numbers [phone] MICU SHOE pager [phone] [facility] ICU pager [phone] ICU [facility] pager [phone] ICU [facility] pager [phone] * Plan of Care - Fouzia Hernández, [...] Integrity Outcome: Progressing * Treatment Plan - CHRISTINE Armas - 05/08/2024 2:12 PM EST ICU PLAN [...] person. On 05/01/24 EMS transferred patient to [facility] and then was non responsive and hypotensive requiring norepinephrine. EEG noted Gpds and neurology was consulted and reviewed EEG and met criteria status epilepticus. Patient was transferred to [facility] on 05/04 for further neurological medical management. [...] NG/GT:451] Out: 1974 [Urine:1974] WBC/Hgb/Hct/Plts: 15.34/8.8/28.9/77 (05/08 33) Na/K+/Phos/Mg/Ca: 140/3.9/3.3/2.3/-- (05/08 33-05/08 115) Bun/Creat/Cl/CO2/Glucose: 28/2.34/106/22/107, 109 (05/08 33) Pertinent imaging: MRI Brain: 05/06 Motion artifact [...] anemia - Acute anemia likely due to REHABILITATION MEDICINE PHYSICIAN in the setting of acute illness and anemia of chronic disease 05/08 CKD - Blood tinged secretion on 04/18 likely 05/08 suction - Bright red blood noticed upon [...] dose, per . * Treatment Plan - Karrie Sims APRN-SAGGER MAKER - 05/07/2024 8:28 AM EST ICU PLAN [...] person. On 05/01/24 EMS transferred patient to [facility] and then was non responsive and hypotensive requiring norepinephrine. EEG noted Gpds and neurology was consulted and reviewed EEG and met criteria status epilepticus. Patient was transferred to [facility] on 05/04 for further neurological medical management. She was admitted to the MICU for critical care management (See H&P for full admit details and PMH) Last 24 Hours Brain MRI last night. PIRRT started post MRI and clotted off 5 hours after PIRRT. Started propofol given frequent coughing and interfering with REHABILITATION MEDICINE PHYSICIAN. Received blood transfusion for acute hemoglobin drop. Passed SBT this morning, however, mental status remains poor Plan - Resume subcutaneous heparin given no active bleeding - Discontinue acyclovir given negative LP culture - Change ceftriaxone to non DICTATING MACHINE TYPIST coverage - Discontinue iHD given remained clotting [...] Out: 753 [Urine:753] WBC/Hgb/Hct/Plts: 16.89/8.5/27.3/73 (05/07 819-05/07 1149) Na/K+/Phos/Mg/Ca: 137/3.6/3.2/1.8/-- (05/07 713) Bun/Creat/Cl/CO2/Glucose: 24/2.11/106/24/88 (05/07 [...] on Chronic anemia - Likely due to REHABILITATION MEDICINE PHYSICIAN in the setting of acute illness - [...] 05/04 at OSH -CVC: 05/04 CVC Necessity: REHABILITATION MEDICINE PHYSICIAN -Do: 05/04 -NG/OG tube: 05/04 The above plan was discussed on multidisciplinary rounds. I have consulted with Dr. Pratik Young MD regarding the plan of care, including medications. The above note reflects the attending's recommendations. CHRISTINE Armas * Plan of Care - Harish Parry MD - 05/07/2024 1:02 AM EST Patient is coughing frequently which is disrupting the ability to proceed with REHABILITATION MEDICINE PHYSICIAN due to pressures. Given the need for REHABILITATION MEDICINE PHYSICIAN for clearance post MRI contrast, we will sedate with propofol overnight to suppress cough to allow for clearance and re-evaluate in the AM. Will put her vent back on a rate aswell. Harish Parry MD - PGY-3 Internal Medicine Pager [phone] * Plan of Care - Josefina Cary [...] Negative Hepatitis B Surface Antigen Resulted From [facility] lab Date Hepatitis B Surface Antigen Status [...] % Tunneled Central Line - Double Lumen 05/04/242099 red blue internal jugular vein, left Placement Date/Time: 05/04/242099 Present On Admission : (c) yes Lumen [...] to Frida BROWN * Treatment Plan - CHRISTINE Armas - 05/06/2024 10:06 AM EST ICU PLAN [...] person. On 05/01/24 EMS transferred patient to [facility] and then was non responsive and hypotensive requiring norepinephrine. EEG noted Gpds and neurology was consulted and reviewed EEG and met criteria status epilepticus. Patient was transferred to [facility] on 05/04 for further neurological medical management. [...] Dialysis:1400] Out: 2301 [Urine:900] WBC/Hgb/Hct/Plts: 19.33/7.1/22.9/90 (05/06 0031) Na/K+/Phos/Mg/Ca: 137/4.1/5.2/2.2/-- (05/06 6) Bun/Creat/Cl/CO2/Glucose: 52/3.60/107/21/90 (05/06 6) Last 24 hours imaging: CTH: 05/05 No [...] 05/04 at OSH -CVC: 05/04 CVC Necessity: REHABILITATION MEDICINE PHYSICIAN -Do: 05/04 -NG/OG tube: 05/04 The above [...] documents. HCPOA # 1: Gonzalo Lopez (son) [phone] HCPOA # 2: Alex Donaldson (friend) [phone] SW will scan these legal documents into the chart and update the demographic sheet. USAMA Beckett LISW 10 [facility] [employer] Agent [phone] Available on secure chat * Research Note - Alfred Us RCP - 05/05/2024 11:06 AM EST [employer] Research Note Patient is enrolled in the [employer] - Oxygen Clinical Trial. Completed and reviewed ABG. Arterial Blood Gas Saturation: Lab Results Component Value Date/Time [id number] 05/05/2024 05:13 AM SpO2 on the patient monitor at the time ABG was drawn = 100 %. Decision tree: If SaO2 < SpO2 by 1-2% or SaO2 > SpO2 within 5% = Conservative O2 group If SaO2 < SpO2 by 3-5% = Boosted/[place] O2 group If SaO2 and SpO2 differs [...] Outcome: Progressing * Treatment Plan - Oralia Mary, EMPLOYMENT PROGRAM REPRESENTATIVE-SAGGER MAKER - 05/05/2024 7:47 AM EST ICU PLAN [...] to person.on 05/01/24 EMS transferred patient to [facility] and then was non responsive and hypotensive requiring norepinephrine. EEG noted Gpds and neurology was consulted and reviewed EEG and met criteria status epilepticus. Patient was transferred to [facility] on 05/04 for further neurological medical management. [...] WBC/Hgb/Hct/Plts: 16.19/7.9/24.3/83 (05/05 0010) Na/K+/Phos/Mg/Ca: 136/4.2/3.8/2.2/-- (05/05 09-05/05 1301) Bun/Creat/Cl/CO2/Glucose: 51/3.42/105/22/88 (05/05 09) Last 24 hours imagin/30 cEEG no seizures [...] the attending's recommendations. CHRISTINE Braun DNP Pager [phone] documented [facility] History of Present illness Narrative* Rebeca Gillespie - 05/18/2024 3:02 PM EST 05/18/2024 [facility] cancelled transport, changed to [facility] at 4pm. Informed Brisa BATES ofchange. JANA Lazo Sanforizing Machine Operator Account Development Specialist [phone] * JANA Byrne - 05/18/2024 2:15 PM EST Social Work Final Discharge Plan and Transportation Discharge Disposition: Inpatient Rehab Facility Community Agency Name(s) For Handoff: [facility] Name For Handoff: [facility] Phone For Handoff: Fax For Handoff: Selected Continued Care - Admitted Since 05/04/2024 No services have been selected for the patient. Transportation Transport Request Mode of Transfer: [facility] Name of Discharge Transport Company: [employer] Discharge Transport ETA: 05/18/2024 @ 1630 Patient medically stable for discharge per physician/medical team. Transportation arranged as listed above. Patient will discharge to [facility]. Facility, Patient/Family, Bedside RN, CCM, and medical team are aware and agreeable to transportation time. Social work wi ll remain available to assist as needed. JANA Suazo Liquefaction And Regasification Helper Can be reached by secure chat. * Kin Goodwin PT - 05/18/2024 11:50 AM EST Acute Physical Therapy Treatment Prior Gross Functional Mobility: Current AM-PAC score(s): CURRENT AM-PAC Mobility Raw Score: 7 Based on the above AM-PAC score(s) and PT clinical judgment, patient is a good candidate for discharge to [facility] Barriers to discharge home: Patient needs [...] per pt's request Mobility Assessment/Intervention: Rolling/Turning Mobility [place] Level: Rolling/Turning: maximum assist (25% patient effort) Physical Assist: Rolling/Turnin person assist Bed Features/Set-up: Rolling/Turning: Flat, Friction reducing device Skilled Rationale: Positioning, Sequencing, Hand placement Skilled Intervention/Details: Rolling/Turning: rolling both side for positioning and pressure relieft Scooting Bridging Mobility [place] Level: Scooting/Bridging: dependent (less than 25% patient effort) Physical Assist: Scooting/Bridgin person assist Bed Features/Set-up: Scooting/Bridging: Flat, Friction reducing device Skilled Rationale: Sequencing, Positioning, Hand placement Skilled Intervention/Details: Scooting/Bridging: boost hob for optimal positioning Transfer Assessment/Intervention: Sit to Stand Transfer [place] Level: Sit->Stand: not tested Gait/Functional Mobility Assessment/Intervention: Gait Assessment [place] Level: Gait: unable to assess Stairs Assessment/Intervention: Outcome Score(s): CURRENT AM-PAC Basic Mobility Inpatient Short Form Turning over in bed: 2 - A Lot of Assistance Moving from lying on back to sittin - Total Assistance Moving to and from bed to chair: 1 - Total Assistance Sitting/standing from chair: 1 - Total Assistance Walk in hospital room: 1 - Total Assistance Climbing 3-5 steps with a railin - Total Assistance CURRENT [facility] Mobility Raw Score: 7 CURRENT [facility] Mobility Functional Limitation: 92.36% Impaired in Basic [...] skilled care performed Assisted by during session: PROFESSIONAL EMPLOYER CONSULTANT PPE used during patient interaction: gloves Patient [...] Transportation for discharge arranged Mode of Transfer: [facility] Name of Discharge Transport Company: [employer] Discharge Transport ETA: 05/18/2024 @ 1630 Pick-up from [id number] 0933/A Destination [address] [place] [address] JANA Lazo Sanforizing Machine Operator Account Development Specialist [phone] * Javed Sanchez OT - 05/18/2024 7:50 AM EST Acute Occupational Therapy Treatment Prior Gross Functional Mobility: Current AM-PAC score(s): CURRENT AM-PAC Activity Raw Score: 10 Based on the above AM-PAC score(s), and OT clinical judgment, discharge destination recommendation is: [facility] Barriers to discharge home: Patient needs [...] bed level due to the need for PROFESSIONAL EMPLOYER CONSULTANT vitals,meds, and therapy Scooting Bridging Mobility [place] Level: Scooting/Bridging: dependent (less than 25% patient effort) Physical Assist: Scooting/Bridgin person assist Bed Features/Set-up: Scooting/Bridging: Head of bed elevated, Friction reducing device Skilled Rationale: Positioning, Verbal cues, Initiation and execution of task Skilled Intervention/Details: Scooting/Bridging: x1 to HOB for improved positioning for feeding Functional Mobility: Wheelchair Assessment Patient currently uses wheelchair?: No CURRENT [facility] Daily Activity Inpatient Short Form Putting on/Taking Off Lower Body Clothin - Total Assistance Bathin - Total Assistance Toiletin - Total Assistance Putting on/Taking Off Upper Body Clothin - A Lot of Assistance Groomin - A Lot of Assistance Eatin - A Little Assistance CURRENT [facility] Activity Raw Score: 10 CURRENT [facility] Activity Functional Limitation/Modifier: 74.70% Currently Impaired in [...] Upon arrival pt supine in bed wiht PROFESSIONAL EMPLOYER CONSULTANT taking vitals but agreeable to skilled therapy [...] skilled care performed Assisted by during session: PROFESSIONAL EMPLOYER CONSULTANT PPE used during patient interaction: gloves Patient location at end of session: bed with head of bed elevated Alarms on at end of session: RN aware Needs in reach. Time In: 0750 Time Out: 0813 Total Visit Time: 23 minutes Total Treatment Time (skilled, billable minutes): 23 minutes Upon discontinuation of Acute Care Occupational Therapy Services or patient discharge from the hospital this note represents the current Occupational Therapy Discharge Summary. * eLslie Peterson MD - 05/17/2024 12:34 PM EST Internal Medicine Progress Note Patient: Mari Lopez, 1940, [id number] Physician: Leslie Peterson MD, GM8 service Subjective: NAEO. Per night [...] MICU for status epilepticus now transfered to [facility]. Daily Updates: - Delirium overnight, spaced vitals to q4h while awake - MBS today showing aspiration, following up RUNNING INSTRUCTOR recommendations - Will discuss with family results of MBS Dysphagia FEES with RUNNING INSTRUCTOR 05/13 with some concerns of aspiration possibly related to NGT and ongoing laryngeal edema. - NGT in place - Nepro at goal 35 cc/hr - MBS today showing aspiration - Following up with RUNNING INSTRUCTOR final recommendations - Will discuss GOC with family, if NG in line with GOC will require a different facility JOSE on CKD stage 4, non-oliguric JOSE likely due to ischemic and septic ATN due to septic shock requiring REHABILITATION MEDICINE PHYSICIAN this admission. Creatinine stable - Followings Dr. Gilmore (miter sawyer) every 6 months Acute blood loss on chronic anemia, stable Macrocytic anemia Acute anemia likely due to REHABILITATION MEDICINE PHYSICIAN in the setting of acute illness and anemia of chronic disease 2/2 CKD - No S/S of active bleeding - iron studies normal - Transfuse goal Hgb > 7 Acute provoked DVT in the left internal jugular vein 05/08 CVC placement, line since removed - Eliquis [...] Code Status: Full Code Disposition: Transferred to [facility], will likely go to [facility] when medically cleared Discussed with team and attending on rounds. Leslie Peterson MD 05/17/24 Hospital Course: On 05/01/24 EMS transferred patient to [facility] and then she became non responsiveand hypotensive requiring norepinephrine. EEG noted GPDs and neurology was consulted and reviewed EEG who believed it met criteria status epilepticus. Patient was transferred to [facility] on 05/04 for further neurological medical management. She was admitted to the MICU for critical care management. Per H&P: The patient initially presented to the [facility] ED 05/01/24 with AMS found to havesevere [...] C) SpO2: 96% O2 Device: room air (05/17/24 1136) Flow (L/min): 1 (05/10/24 0000) Gen: chronically [...] comorbidity Essential hypertension Nicol Judge MD, FACP Macaroni Maker of Clinical Medicine General Internal Medicine * [...] continues to develop Plan for MBS with RUNNING INSTRUCTOR 05/17 [place] [facility] will not accept with DHT, would require PEG for enteral nutrition. Discharge pending medical readiness Will continue to follow for discharge planning and care coordination. Josefina Manning RN, BSN Drop Forger Available by Secure Chat or [employer] [place] * Leslie Peterson MD - 05/16/2024 4:03 PM EST Internal Medicine Progress Note Patient: Mari Lopez, 1940, [id number] Physician: Leslie Peterson MD, GM8 service Subjective: [...] MICU for status epilepticus now transfered to [facility]. Daily Updates: - Feels well overall - Continues to have good UOP, chem grossly stable - Continue IV diuresis today - Follow up results of MBS today - Dispo to [facility] facility in [place] once medically stable -- facility may not [...] line since removed. - Followings Dr. Gilmore (miter sawyer) every 6 months - Nephrology consulted, appreciate recs regarding ongoing diuresis: -- Resume IV Lasix 20mg daily 05/13 given stable chemistry - Continue FWF 100cc q4h 05/14 given improved hypernatremia - LUE dupplex negative for DVT 05/11 - Daily chem Elevated temperature Leukocytosis, stable Increasing WBC 2/8 now stable. Patient without localizing symptoms, reports [...] tube feeds at goal - FEES with RUNNING INSTRUCTOR 05/13 with some concerns of aspiration possibly [...] Macrocytic anemia Acute anemia likely due to REHABILITATION MEDICINE PHYSICIAN in the setting of acute illness and [...] Code Status: Full Code Disposition: Transferred to [facility], will likely go to [facility] when medically cleared Discussed with team and attending on rounds. Leslie Peterson MD 05/16/24 Hospital Course: On 05/01/24 EMS transferred patient to [facility] and then she became non responsiveand hypotensive requiring norepinephrine. EEG noted GPDs and neurology was consulted and reviewed EEG who believed it met criteria status epilepticus. Patient was transferred to [facility] on 05/04 for further neurological medical management. She was admitted to the MICU for critical care management. Per H&P: The patient initially presented to the [facility] ED 05/01/24 with AMS found to havesevere [...] C) SpO2: 95% O2 Device: room air (05/16/24 1515) Flow (L/min): 1 (05/10/24 0000) Gen: chronically [...] comorbidity Essential hypertension Nicol Judge MD, FACP Macaroni Maker of Clinical Medicine General Internal Medicine * AZAEL Blas - 05/16/2024 11:00 AM EST Speech Language Pathology Attempt Note 05/17/2024 Attempted to complete MBS in fluoro suite. Unable to complete study d/t patient positioning/bodyhabitus. Plan for MBS tomorrow in [facility]. AZAEL Blas Time In: 1100 Time [...] of Care: 1. Diet advancement pending MBS/per RUNNING INSTRUCTOR 2. Continue current enteral nutrition regimen: Nepro 1.8 @ 35 mL/hr- provides 840mL volume, 1512kcal, 68g pro, 134g CHO, 611mL free H2O - increase to 1pkt Prosource TF BID - provides additional 80kcal, 22g pro - at minimum recommend 30mL flushes q4 hrs to maintain tube patency 3. If termination clerk enteral nutrition is anticipated, recommend transitioning to [...] transferred to the floor. Initially presented to [facility] ED 05/01 with AMS. Found to have [...] in R parietal lobe. MRI cspine acquired 2/ d/t concern for lack of extremity movement & bilateral upgoing babinski. Extubated 05/08 with subsequent laryngeal edema. Pertinent Procedures: FEES 05/13: recommended NPO Nutrition Evaluation: Patient evaluated for nutrition follow up. Plan for MBS today. Visited patient. Obtained limited wt/intake hx, as this was previously unable to be obtained. Patient did not know UBW though reported wt gain TIN ASSORTER. Denied any changes in appetite/intake. Weight records [...] of 25, 60kg Estimated Energy Requirements (kcal/day): 7346-1968 kcal/day (25-30 kcal/kg) Estimated Protein Requirements (g/day): [...] criteria (2012) Nazanin Kaye, MPH, RD, LD, CNSC Pager #[phone] * Heladio Prather MD - 05/15/2024 11:49 AM EST Internal Medicine Progress Note Patient: Mari Lopez, 1940, [id number] Physician: Heladio Prather MD, PGY2, GM8 service [...] MICU for status epilepticus now transfered to [facility]. Daily Updates: - Mildly elevated temperature, Tmax 100.8F this morning - Flu/COVID negative - WBC stable, patient without acute symptoms, feeling well overall - Continues to have good UOP, chem grossly stable - Continue IV diuresis today - Per RUNNING INSTRUCTOR - plan for NG to be switched for DHT, MBS on Thursday, 05/16 - Dispo to [facility] facility in [place] once medically stable -- facility may not [...] line since removed. - Followings Dr. Gilmore (miter sawyer) every 6 months - Nephrology consulted, appreciate [...] tube feeds at goal - FEES with RUNNING INSTRUCTOR 05/13 with some concerns of aspiration possibly [...] Macrocytic anemia Acute anemia likely due to REHABILITATION MEDICINE PHYSICIAN in the setting of acute illness and [...] Code Status: Full Code Disposition: Transferred to [facility], will likely go to [facility] when medically cleared Discussed with team and attending on rounds. Heladio Prather MD 05/15/24 Hospital Course: On 05/01/24 EMS transferred patient to [facility] and then she became non responsiveand hypotensive requiring norepinephrine. EEG noted GPDs and neurology was consulted and reviewed EEG who believed it met criteria status epilepticus. Patient was transferred to [facility] on 05/04 for further neurological medical management. She was admitted to the MICU for critical care management. Per H&P: The patient initially presented to the [facility] ED 05/01/24 with AMS found to havesevere metabolic derangements (pH 7.0, acute renal failure with uremia, hyperkalemia, acidosis). She was intubated, initiated on broad spectrum antibiotics, and placed on vasopressors after inadequate response to 30 cc/kg IVF resuscitation. CTH on admission reportedly normal (reports not available or included in transfer paperwork, [facility] radiology contacted to push images). An infectious [...] coli UTI, provoked DVT, and JOSE requiring REHABILITATION MEDICINE PHYSICIAN who was transitioned to the floor. The [...] GDMT when hemodynamics allow Kevon Lyon MD Cover Remover, Clinical Division of General Internal Medicine * LOUIS Richardson - 05/14/2024 11:40 AM EST Placement Plan Expected Discharge Date: 05/17/2024 Referred Level of Care: [facility] Barriers: med readiness; ability for [facility] to admit w/ DHT; out-of-town transportation Current Referrals and Status 1. [facility] - accepted/reserved Per MD, current [...] stated they will discuss with their medical reimbursement manager on Thursday and let SW know [...] additional needs/concerns. Main CM/SW Office (Thursday-Thursday, 8:00am-4:30pm): [phone] For any other coverage needs, please consult Shant under Care Management. * Heladio Prather MD - 05/14/2024 10:39 AM EST Internal Medicine Progress Note Patient: Mari Lopez, 1940, [id number] Physician: Heladio Prather MD, PGY2, GM8 service [...] MICU for status epilepticus now transfered to [facility]. Daily Updates: - Net positive 1.7L over last 24 hours - Chemistry largely stable, improved hypernatremia - Will decrease FWF to 100cc q4h - Plan for IV Lasix 20mg x1 today, monitor I/O - Per RUNNING INSTRUCTOR - plan for NG to be switched for DHT, MBS on Thursday, 05/16 - Dispo to [facility] facility in [place] once medically stable -- facility may not [...] line since removed. - Followings Dr. Gilmore (miter sawyer) every 6 months - Nephrology consulted, appreciate [...] - Chloraseptic spray PRN Leukocytosis Increasing WBC 2/8. Patient without localizing symptoms, reports sore throat is improving. Denies significant cough, SOB, abdominal pain. Has been afebrile, otherwise HDS. Will continue to trend CBC,monitor clinically - Trend CBC Ileus - resolved 05/05 KUB mild bowel gas distention of small bowel, now having BM - tolerating tube feeds at goal - FEES with RUNNING INSTRUCTOR 05/13 with some concerns of aspiration possibly [...] Macrocytic anemia Acute anemia likely due to REHABILITATION MEDICINE PHYSICIAN in the setting of acute illness and [...] Code Status: Full Code Disposition: Transferred to [facility], will likely go to [facility] when medically cleared Discussed with team and attending on rounds. Heladio Prather MD 05/14/24 Hospital Course: On 05/01/24 EMS transferred patient to [facility] and then she became non responsiveand hypotensive requiring norepinephrine. EEG noted GPDs and neurology was consulted and reviewed EEG who believed it met criteria status epilepticus. Patient was transferred to [facility] on 05/04 for further neurological medical management. She was admitted to the MICU for critical care management. Per H&P: The patient initially presented to the [facility] ED 05/01/24 with AMS found to havesevere [...] and oriented Data Review: WBC/Hgb/Hct/Plts: 13.46/7.8/26.4/374 (05/14 0422) Na/K+/Phos/Mg/Ca: 138/4.6/3.8/2.0/-- (05/14 421) Bun/Creat/Cl/CO2/Glucose: 60/1.70/103/26/109 (05/14 [...] GDMT when hemodynamics allow Kevon Lyon MD Cover Remover, Clinical Division of General Internal Medicine * Ralph Shafer, DO - 05/13/2024 2:09 PM EST NEPHROLOGY [...] lymphedema who presented as a transfer from [facility] level of care after she presented with AMS and found to have status epilepticus. Hospital course c/b acute respiratory failure requiring intubation and JOSE requiring REHABILITATION MEDICINE PHYSICIAN for which nephrology is consulted. Impression: Oliguric JOSE on CKD 4 - improved Recent b/l Cr ~1.5-1.8 JOSE likely due to ischemic and septic ATN due to septic shock S/p REHABILITATION MEDICINE PHYSICIAN now monitoring off - line removed Azotemia [...] monitor sodium daily No urgent indication for REHABILITATION MEDICINE PHYSICIAN - line was already removed Will continue [...] page the on- call Neph fellow on [email or web address]. Joao Shafer DO Clinical Nephrology Fellow, PGY-5 Pager [phone] OBJECTIVE Vitals: BP 145/69 (BP Location: Right [...] Will continue to follow. Evans Cornejo MD [phone] tax technician Division of Nephrology * Heladio Prather MD - 05/13/2024 1:38 PM EST Internal Medicine Progress Note Patient: Mari Lopez, 1940, [id number] Physician: Heladio Prather MD, PGY2, GM8 service Subjective: Pt seen and evaluated this morning at bedside. She reports that she tolerated ice chips well this morning. Complaining of sore throat but reports topical spray is helping. Eager to try to get NGT removed. Understands plan for FEES this afternoon with RUNNING INSTRUCTOR team. Assessment/Plan: Mari Lopez is a 83 y.o. female HTN, hypoparathyroidism, hypothyroidism, BAYRON, gastric bypass (2003), CKD stage 4, HFpEF, and TADEO. Initially admitted to MICU for status epilepticus now transfered to [facility]. Daily Updates: - Net positive 144mL over last 24 hours - Chemistry largely stable - Plan for IV Lasix 20mg x1 today - Pending FEES with RUNNING INSTRUCTOR - plan to transition diet and advance as tolerated if able - Dispo to [facility] facility in [place] once medically stable JOSE on CKD stage [...] line since removed. - Followings Dr. Gilmore (miter sawyer) every 6 months - Nephrology consulted, appreciate recs regarding ongoing diuresis: -- Resume Lasix 20mg daily 05/13 given stable chemistry, net positive over last 24 hours - Rec increase free water flushes to 200cc q4h --> decrease to 100cc q4h if Na 140 or lower - LUE dupplex negative for DVT 05/11 - Daily chem Sore throat Complaining of [...] tube feeds at goal - FEES with RUNNING INSTRUCTOR 05/13 to determine if NGT can be [...] Macrocytic anemia Acute anemia likely due to REHABILITATION MEDICINE PHYSICIAN in the setting of acute illness and [...] Code Status: Full Code Disposition: Transferred to [facility], will likely go to [facility] when medically cleared Discussed with team and attending on rounds. Heladio Prather MD 05/13/24 Hospital Course: On 05/01/24 EMS transferred patient to [facility] and then she became non responsiveand hypotensive requiring norepinephrine. EEG noted GPDs and neurology was consulted and reviewed EEG who believed it met criteria status epilepticus. Patient was transferred to [facility] on 05/04 for further neurological medical management. She was admitted to the MICU for critical care management. Per H&P: The patient initially presented to the [facility] ED 05/01/24 with AMS found to havesevere [...] alert and oriented Data Review: WBC/Hgb/Hct/Plts: 11.50/8.0/26.9/368 (05/13 36) Na/K+/Phos/Mg/Ca: 143/4.4/3.4/2.2/-- (05/13 36) Bun/Creat/Cl/CO2/Glucose: 62/1.89/104/31/121 (05/13 36-05/13 1123) ECHOCARDIOGRAM Final Result VASC DUPLEX VENOUS EXTREMITY [...] GDMT when hemodynamics allow Kevon Lyon MD Cover Remover, Clinical Division of General Internal Medicine * JANA Byrne - 05/13/2024 12:48 PM EST Placement Plan Expected Discharge Date: 05/13/2024 Referred Level of Care: [facility] Barriers: Medical Readiness and Transport Current Referrals and Status 1. [facility]- Reserved Patient is not medically ready at this time. Patient does not need precert. Brisa FORRESTER, JANA Liquefaction And Regasification Helper Can be reached by secure chat. * Shereen López, AZAEL - 05/13/2024 10:30 AM EST Acute Care Speech Language Pathology Treatment Diet Recommendations: Recommended Method of Nutrition: Short-term alternate nutrition Discharge Recommendations: Based on the below outcome measures/assessment score(s) and RUNNING INSTRUCTOR clinicaljudgment, discharge destination recommendation is: Deferred to PT/OT recomendations related to mobility Supporting factors for discharge setting: Impaired swallow function limiting nutritional status andsafety with oral intake Acute RUNNING INSTRUCTOR Outcomes Tracking Communicate basic wants and needs?: [...] Ok for ice chips with RN supervision. RUNNING INSTRUCTOR will continue to follow for ongoing dysphagia management. Subjective: Mari was seen at bedside, alert and complaining of back pain. RUNNING INSTRUCTOR at bedside to determine readiness for FEES [...] Right leg Lying 94 % roomair Acute RUNNING INSTRUCTOR Goals Plan of Care by AZAEL Carvalho at 05/13/2024 10:30 AM Version 1 of 1 Problem: Dysphagia Goal: FEES - Patient will participate in Fiberoptic Endoscopic Evaluation of Swallowing (FEES) study to objectively assess pharyngeal swallow function to most appropriately guide RUNNING INSTRUCTOR plan of care Outcome: Ongoing Patient demonstrated [...] Plan for next session: Ongoing dysphagia interventions RUNNING INSTRUCTOR Outcomes: Functional Oral Intake Score: 1 Patient Education/Instruction Learners: Patient Education provided: Dysphagia risk factors, Dysphagia recommendations/impressions Teaching method: Verbal Education/Instruction Learner response: Returns demonstration, Needs review Learning preferences: Auditory Learning considerations: Cognition Speech Language Pathologist: AZAEL Carvalho, [facility] Time In: 1030 Time Out: 1050 Total Visit Time: 20 minutes Total Treatment Time (skilled, billable minutes): 20 minutes Non-billable assistance during session: none Assisted by during session: no one PPE used during patient interaction: gloves Patient location/status at end of session: bed with head of bed elevated Patient alarms at end of session: bed alarm Needs in reach RUNNING INSTRUCTOR Evaluation and Treatment Time Swallowing Dysfunction Treatment 27816: 20 Upon discontinuation of Acute Care Speech [...] lymphedema who [facility] after she presented with AMS and found to have status epilepticus. Hospital course c/b acute respiratory failure requiring intubation and JOSE requiring REHABILITATION MEDICINE PHYSICIAN for which nephrology is consulted. Impression: Oliguric [...] 140 or lower No urgent indication for REHABILITATION MEDICINE PHYSICIAN - line was already removed Accurate Is/Os [...] page the on- call Neph fellow on [employer]. Joao Shafer DO Clinical Nephrology Fellow, PGY-5 Pager [phone] OBJECTIVE Vitals: BP 113/71 (BP Location: Left [...] OT clinical judgment, discharge destination recommendation is: [facility] Barriers to discharge home: Patient needs [...] Intervention/Details: Increased A due to incontience and larua care hygiene Extremity Assessments: See OT Evaluation flowsheet for Extremity Measurement updates. Skin and Edema: Skin Integrity Skin Integrity Description: Swelling, Redness Edema Edema: present Location: RUE Mobility Assessment/Intervention: Rolling/Turning Mobility [place] Level: Rolling/Turning: maximum assist (25% patient effort) Physical Assist: Rolling/Turnin person assist Bed Features/Set-up: Rolling/Turning: Flat, Use of bed rail, Friction reducing device Skilled Rationale: Positioning, Sequencing, Hand placement, Verbal cues, Initiation and execution of task Skilled Intervention/Details: Rolling/Turning: x2 to R and L for positioning and toileting Scooting Bridging Mobility [place] Level: Scooting/Bridging: dependent (less than 25% patient effort) Physical Assist: Scooting/Bridgin person assist Bed Features/Set-up: Scooting/Bridging: Flat, Friction reducing device Skilled Rationale: Positioning, Sequencing, Hand placement, Verbal cues, Initiation and execution of task Skilled Intervention/Details: Scooting/Bridging: x1 to HOB CURRENT -[facility] Daily Activity Inpatient Short Form Putting on/Taking Off Lower Body Clothin - Total Assistance Bathin - Total Assistance Toiletin - Total Assistance Putting on/Taking Off Upper Body Clothin - Total Assistance Groomin - A Lot of Assistance Eatin - Total Assistance CURRENT -[facility] Activity Raw Score: 7 CURRENT -[facility] Activity Functional Limitation/Modifier: 92.44% Currently Impaired in Daily Activity- CM Interventions: Intervention 1 Intervention Name: BALA FERRARO Sets/Reps/Duration: 1 set / 10 reps Details: Sitting urpight supported in bed this therapist A with RONAN for the RUE for improved smooth muscle [...] current Occupational Therapy Discharge Summary. * Adriana Lima, PT - 05/12/2024 10:29 AM EST Physical [...] on the below outcome measures/assessment score(s) and RUNNING INSTRUCTOR clinicaljudgment, discharge destination recommendation is: Pending instumental swallow assessment Acute RUNNING INSTRUCTOR Outcomes Tracking Communicate basic wants and needs?: [...] Macrocytic anemia Acute anemia likely due to REHABILITATION MEDICINE PHYSICIAN in the setting of acute illness and [...] line since removed. - Followings Dr. Gilmore (miter sawyer) every 6 months - Nephrology consulted, appreciate [...] lasix for goal even to -500mL Prior RUNNING INSTRUCTOR history: NA Current Method of Nutrition: Route [...] Modality: Amount: Ice Teaspoon x3 Thin Teaspoon, RUNNING INSTRUCTOR-fed, Straw x2 teaspoon, x1 straw sip Dysphagia- [...] with eyes closed and appearing to fatigue. [place] Swallow Screen: (administered by: DANISH) [place] Swallow Screening Screening Exclusion Criteria: NPO order for other medical/surgical reasons [place] Swallow Screening Result: postpone until no longer [...] allowance of ice chips following oral care. RUNNING INSTRUCTOR will continue to follow. Plan for next session: 05/12: good candidate; FEES Patient Education/Instruction Learners: Patient Education provided: Safety, Role of this discipline, Positioning, Dysphagia risk factors, Dysphagiarecommendations/impressions Teaching method: Verbal Education/Instruction Learner response: Applies knowledge Learning preferences: Auditory Learning considerations: Cognition Patient Instruction/Education comments: Patient educated regarding role of RUNNING INSTRUCTOR, impressions, instrumental assessments, importance of oral care Acute RUNNING INSTRUCTOR Goals Plan of Care by AZAEL Blas at 05/12/2024 9:30 AM Version 1 of 1 Problem: Dysphagia Goal: FEES - Patient will participate in Fiberoptic Endoscopic Evaluation of Swallowing (FEES) study to objectively assess pharyngeal swallow function to most appropriately guide RUNNING INSTRUCTOR plan of care Outcome: Ongoing Speech Language [...] of session: RN aware Needs in reach. RUNNING INSTRUCTOR Evaluation and Treatment Time Swallowing Eval [id number]: 23 Upon discontinuation of Acute Care Speech Therapy Services or patient discharge from the hospital this note represents the current Speech Therapy Discharge Summary * Heladio Prather MD - 05/12/2024 7:43 AM EST Internal Medicine Progress Note Patient: Mari Lopez, 1940, [id number] Physician: Heladio Prather MD, PGY1, GM8 service [...] MICU for status epilepticus now transfered to [facility]. Daily Updates: - Improved hypernatremia - Will hold off on diuresis today given good UOP yesterday and improved labs without diuresis - RUNNING INSTRUCTOR consulted for swallow eval, recommend FEES - Pending FEES will plan to transition diet and advance as tolerated - Dispo to SNF per PT/OT recs (pt with room at [facility]) JOSE on CKD stage 4, non-oliguric JOES likely due to ischemic and septic ATN due to septic shock. Improving renal function. Required renal replacement during MICU stay for renal clearance. Now making good urine with prn lasix.. Serum creatinine 1.5-1.6 for a recent baseline. HD 05/06 for clearance, 5 hours PIRRT in the morning of 05/07/24 and stopped d/t filter clot. HD line since removed. - Followings Dr. Gilmore (miter sawyer) every 6 months - Nephrology consulted, appreciate recs regarding ongoing diuresis: -- Hold off on further diuresis 05/12 given improved Na and good UOP/net neg without diuresis - Rec increase free water flushes to 200cc q4h --> decrease to 100cc q4h if Na 140 or lower 05/13 - LUE dupplex negative for DVT 05/11 - daily chem Concern for status epilepticus, [...] Macrocytic anemia Acute anemia likely due to REHABILITATION MEDICINE PHYSICIAN in the setting of acute illness and [...] Code Status: Full Code Disposition: Transferred to 3, will likely go to [facility] when medically cleared Discussed with team and attending on rounds. Heladio Prather MD 05/12/24 Hospital Course: On 05/01/24 EMS transferred patient to [facility] and then she became non responsiveand hypotensive requiring norepinephrine. EEG noted GPDs and neurology was consulted and reviewed EEG who believed it met criteria status epilepticus. Patient was transferred to [facility] on 05/04 for further neurological medical management. She was admitted to the MICU for critical care management. Per H&P: The patient initially presented to the [facility] ED 05/01/24 with AMS found to havesevere metabolic derangements (pH 7.0, acute renal failure with uremia, hyperkalemia, acidosis). She was intubated, initiated on broad spectrum antibiotics, and placed on vasopressors after inadequate response to 30 cc/kg IVF resuscitation. CTH on admission reportedly normal (reports not available or included in transfer paperwork, [facility] radiology contacted to push images). An infectious [...] GDMT when hemodynamics allow Kevon Lyon MD Cover Remover, Clinical Division of General Internal Medicine * Ralph Shafer DO - 05/11/2024 11:48 AM EST NEPHROLOGY INPATIENT [...] lymphedema who [facility] after she presented with AMS and found to have status epilepticus. Hospital course c/b acute respiratory failure requiring intubation and JOSE requiring REHABILITATION MEDICINE PHYSICIAN for which nephrology is consulted. Impression: Oliguric [...] K Replace Mag No urgent indication for REHABILITATION MEDICINE PHYSICIAN Accurate Is/Os Avoid nephrotoxins as able These [...] page the on- call Neph fellow on [employer]. Joao Shafer DO Clinical Nephrology Fellow, PGY-5 Pager [phone] OBJECTIVE Vitals: BP 124/60 (BP Location: Right [...] water flushes as below. No need for REHABILITATION MEDICINE PHYSICIAN. Will follow. Evans Cornejo MD 1610 tax technician Division of Nephrology * Adriana Lima, PT - 05/11/2024 10:40 AM EST Acute Physical Therapy Treatment Prior Gross Functional Mobility: independent Current AM-PAC score(s): CURRENT AM-PAC Mobility Raw Score: 6 Based on the above AM-PAC score(s) and PT clinical judgment, patient is a good candidate for discharge to [facility] Barriers to discharge home: Patient needs [...] onset fatigue noted Mobility Assessment/Intervention: Rolling/Turning Mobility [place] Level: Rolling/Turning: dependent (less than 25% patient effort) Physical Assist: Rolling/Turnin person assist Bed Features/Set-up: Rolling/Turning: Flat, Friction reducing device Skilled Rationale: Verbal cues, Sequencing, Positioning, Technique of activity Skilled Intervention/Details: Rolling/Turning: bilateral rolling while performing laura-care; limited ability to facilitate with UEs Scooting Bridging Mobility [place] Level: Scooting/Bridging: dependent (less than 25% patient effort) Physical Assist: Scooting/Bridgin person assist Bed Features/Set-up: Scooting/Bridging: Flat, Friction reducing device Skilled Rationale: Positioning Supine to Sit Mobility [place] Level: Supine->Sit: dependent (less than 25% patient effort) Physical Assist: Supine->Sit: 2 person assist Bed Features/Set-up: Supine->Sit: Friction reducing device, Head of bed elevated Skilled Rationale: Verbal cues, Technique of activity Skilled Intervention/Details: Supine->Sit: limited ability to initiate with LEs or trunk Sit to Supine Mobility [place] Level: Sit->Supine: dependent (less than 25% patient effort) Physical Assist: Sit->Supine: 2 person assist Bed Features/Set-up: Sit->Supine: Flat Skilled Rationale: Positioning, Sequencing, Technique of activity Skilled Intervention/Details: Sit->Supine: completed return to supine with reverse log roll Transfer Assessment/Intervention: Sit to Stand Transfer [place] Level: Sit->Stand: not tested Outcome Score(s): CURRENT [facility] Basic Mobility Inpatient Short Form Turning over in bed: 1 - Total Assistance Moving from lying on back to sittin - Total Assistance Moving to and from bed to chair: 1 - Total Assistance Sitting/standing from chair: 1 - Total Assistance Walk in hospital room: 1 - Total Assistance Climbing 3-5 steps with a railin - Total Assistance CURRENT [facility] Mobility Raw Score: 6 CURRENT [facility] Mobility Functional Limitation: 100.00% Impaired in Basic [...] current Physical Therapy Discharge Summary. * Javed Sanchez OT - 05/11/2024 10:11 AM EST Acute Occupational Therapy Treatment Prior Gross Functional Mobility: Current AM-PAC score(s): CURRENT AM-PAC Activity Raw Score: 7 Based on the above AM-PAC score(s), and OT clinical judgment, discharge destination recommendation is: Senior Care Facility Barriers to discharge home: Patient needs [...] positioning, Facilitate postural control, Technique of activity, [id number] assist Grooming Intervention/Details: Increased A due to [...] present Location: Generalized Mobility Assessment/Intervention: Rolling/Turning Mobility [place] Level: Rolling/Turning: dependent (less than 25% patient effort) Physical Assist: Rolling/Turnin person assist Bed Features/Set-up: Rolling/Turning: Flat, Friction reducing device Skilled Rationale: Positioning, Hand placement, Verbal cues, Initiation and execution of task Skilled Intervention/Details: Rolling/Turning: x2 to either side Scooting Bridging Mobility [place] Level: Scooting/Bridging: dependent (less than 25% patient effort) Physical Assist: Scooting/Bridgin person assist Bed Features/Set-up: Scooting/Bridging: Flat, Friction reducing device Skilled Rationale: Positioning, Verbal cues, Initiation and execution of task Skilled Intervention/Details: Scooting/Bridging: x1 to HOB Supine to Sit Mobility [place] Level: Supine->Sit: dependent (less than 25% patient effort) Physical Assist: Supine->Sit: 2 person assist Bed Features/Set-up: Supine->Sit: Head of bed elevated, Use of bed rail, Friction reducing device Skilled Rationale: Positioning, Sequencing, Hand placement, Verbal cues, Finding/maintaining midline positioning Skilled Intervention/Details: Supine->Sit: x1 R side EOB with increased time and A for safety due to weakness Sit to Supine Mobility [place] Level: Sit->Supine: dependent (less than 25% patient effort) Physical Assist: Sit->Supine: 2 person assist Bed Features/Set-up: Sit->Supine: Flat Skilled Rationale: Positioning, Sequencing, Hand placement, Verbal cues, Initiation and execution of task Skilled Intervention/Details: Sit->Supine: x1 back from R side EOB Transfer Assessment/Intervention: Sit to Stand Transfer [place] Level: Sit->Stand: unable to assess Functional Mobility: Wheelchair Assessment Patient currently uses wheelchair?: No CURRENT AM-[facility] Daily Activity Inpatient Short Form Putting on/Taking Off Lower Body Clothin - Total Assistance Bathin - Total Assistance Toiletin - Total Assistance Putting on/Taking Off Upper Body Clothin - Total Assistance Groomin - A Lot of Assistance Eatin - Total Assistance CURRENT AM-[facility] Activity Raw Score: 7 CURRENT AM-[facility] Activity Functional Limitation/Modifier: 92.44% Currently Impaired in [...] Medicine Progress Note Patient: Mari Lopez, 1940, [id number] Physician: Jamaal Khalil MD, PGY1, GM8 service [...] MICU for status epilepticus now transfered to [facility]. Today's Updates: - 10 beat run of VT, hypokalemic and hypomag, s/p repletion - Holding diuresis - Sore throat, given phenol spray - Increase her free water flushes to 200cc q4h - TTE ordered - RUNNING INSTRUCTOR consulted for speech and swallow eval, consider [...] Macrocytic anemia Acute anemia likely due to REHABILITATION MEDICINE PHYSICIAN in the setting of acute illness and [...] line since removed. - Followings Dr. Gilmore (miter sawyer) every 6 months - Nephrology consulted, appreciate [...] Code Status: Full Code Disposition: Transferred to [facility], will likely go to [facility] when medically cleared Discussed with team and attending on rounds. Jamaal Khalil MD PGY1 [facility] 05/11/24 Hospital Course: On 05/01/24 EMS transferred patient to [facility] and then she became non responsiveand hypotensive requiring norepinephrine. EEG noted GPDs and neurology was consulted and reviewed EEG who believed it met criteria status epilepticus. Patient was transferred to [facility] on 05/04 for further neurological medical management. She was admitted to the MICU for critical care management. Per H&P: The patient initially presented to the [facility] ED 05/01/24 with AMS found to havesevere [...] to the floor on 05/09. Objective: Vitals: 05/11/24 0332 BP: 130/60 Pulse: 71 Resp: 15 Temp: 97.6 F (36.4 C) SpO2: 95% O2 Device: room air (05/11/24 0332) Flow (L/min): 1 (05/10/24 0000) Gen: chronically [...] GDMT when hemodynamics allow Kevon Lyon MD Cover Remover, Clinical Division of General Internal Medicine * Vy Hightower RN - 05/10/2024 3:22 PM EST Placement Plan Expected Discharge Date: 05/13/24 Referred Level of Care: IPR (per family request) Barriers: Medical readiness Current Referrals and Status 1. [facility] (reserved) The HCPOAs communicated with Joseph prior to sending the referral and pre- [...] the IPR option. SANTINO Mo, RN [facility] Clinical Drop Forger (p) [phone] Available on secure chat * Vy Hightower RN - 05/10/2024 2:46 PM EST Reason for Consult: Discharge planning Consulted By: Medical team Level(s) of Care Discussed: SNF Patient and/or Forensic Locksmith's Preferred Geographic Area for Discharge: [place] [address] Patient and/or Forensic Locksmith's Preference for Providers to Include? [facility] (preferred choice) 2. [facility] Patient and/or Forensic Locksmith's Preference for Providers to Exclude? 1.N/A Patient and/or Forensic Locksmith's Discussion: Discussed referral process with the patient and/or credit and collections representative. Patient and/or credit and collections representative isagreeable to have placement referral initiated. CM spoke with Primary HCPOA, Gonzalo, and 1st Alternative HCPOA, Alex. She will need ambulance transportation per HCPOAs' request CM went to the patient's room to update, but she was sleeping and the bedside RN stated that she glenys bit confused. SANTINO Mo, RN 10 MICU Clinical Drop Forger (p) [phone] Available on secure chat * Jhonatan Horton MD - 05/10/2024 11:53 AM EST Nephrology Inpatient Follow up Note Assessment: 83F with PMH of CKD 4, neurogenic bladder, HTN, obesity s/p gastric bypass, TADEO, COPD, HFpEF, hypothyroidism, DVT/PE, chronic lymphedema who [facility] a [facility] after she presented with AMS and found to have status epilepticus. Hospital course c/b acute respiratory failure requiring intubation and JOSE requiring REHABILITATION MEDICINE PHYSICIAN for which nephrology is consulted. Oliguric JOSE on CKD 4 JOSE likely due to ischemic and septic ATN due to septic shock Acute respiratory failure, on mechanical ventilatoin UTI with E coli. Anemia Seizure disorder Acute encephalopathy Hypocalcemia with normal corrected calcium Hypovitaminosis D Plan/Recommendations: -no indications for REHABILITATION MEDICINE PHYSICIAN today -would continue lasix -supportive care per [...] 7.4 (L) 05/06/2024 ICA 4.07 (L) 05/09/2024 [id number] 17.6 (L) 05/05/2024 Lab Results Component Value [...] PHYSICIAN NOTE: Current Hospitalization: Admit Date: 05/04/2024 [facility] Hospital LOS: 6 days Interval History from [...] Tests and Databases: Bun/Creat/Cl/CO2/Glucose: 48/2.50/105/27/94 (05/09 2355-05/10 0002) Na/K+/Phos/Mg/Ca: 142/4.0/3.7/2.0/-- (05/09 2355) WBC/Hgb/Hct/Plts: 16.00/8.4/27.9/210 (05/10 0551) Other notable labs: EEG from 08 May [...] lifestyle modifications. . Ronn Barahona MD, MSCI, [facility], [facility] field crop i farmworker Division of Pulmonary, Critical Care, and Sleep Medicine * Vy Hightower RN - 05/10/2024 10:28 AM EST Drop Forger's Assessment and Summary: Overall Assessment: Improving respiratory failure. Ongoing neuro work up. Respiratory Status: On room air A) One intubation, extubated 05/08/24 Nutritional Support: Dobbhoff PT/OT Recommendations: SNF ([facility] 6) Barriers to Discharge: Medical readiness Following: Neurology, Nephrology Discharge Goals: Primary SNF. No discharge date Next Steps: Monitoring progress; will need SNF referral SANTINO Mo, RN 10 MICU Clinical Drop Forger (p) [phone] Available on secure chat FYI: Reason for Admission: From OSH intubated and concern for seizures Prior to Admission: ADLs/IADLs (prior admission): Assisted Decision Making (prior admission): Independent DMEs: walker;rollator;shower seat;straight cane;stair lift;blood pressure monitor; incontinence supplies Summary: Lives at a house with roommate. * Ronn Barahona MD - 05/09/2024 1:38 PM EST CRITICAL CARE ATTENDING PHYSICIAN NOTE: Current Hospitalization: Admit Date: 05/04/2024 [facility] Hospital LOS: 5 days Interval History from [...] lifestyle modifications. . Ronn Barahona MD, MSCI, [facility], [facility] field crop i farmworker Division of Pulmonary, Critical Care, and Sleep Medicine * Fouzia Hernández, PT - 05/09/2024 10:52 AM EST Acute Physical Therapy Evaluation Prior Gross Functional Mobility: Current AM-PAC score(s): CURRENT AM-PAC Mobility Raw Score: 6 Based on the above AM-PAC score(s) and PT clinical judgment, patient is a good candidate for discharge to [facility] Barriers to discharge home: Patient needs [...] to tactile stimuli Mobility Assessment: Rolling/Turning Mobility [place] Level: Rolling/Turning: dependent (less than 25% patient effort) Physical Assist: Rolling/Turnin person assist Bed Features/Set-up: Rolling/Turning: Flat Skilled Rationale: Sequencing, Hand placement, Verbal cues, Technique of activity, Initiation and execution of task, Cues for increased safety Skilled Intervention/Details: Rolling/Turning: X1 to L/R sideylying to complete dependent pericare and pad exchange; limited to no initiation despite extensive cueing Scooting Bridging Mobility [place] Level: Scooting/Bridging: dependent (less than 25% patient effort) Physical Assist: Scooting/Bridgin person assist Bed Features/Set-up: Scooting/Bridging: Flat Skilled Rationale: Sequencing, Hand placement, Verbal cues, Technique of activity, Initiation and execution of task, Cues for increased safety Skilled Intervention/Details: Scooting/Bridging: X2 to HOB for optimal positioning Supine to Sit Mobility [place] Level: Supine->Sit: dependent (less than 25% patient effort) Physical Assist: Supine->Sit: 2 person assist Bed Features/Set-up: Supine->Sit: Head of bed elevated Skilled Rationale: Sequencing, Hand placement, Verbal cues, Technique of activity, Initiation and execution of task, Cues for increased safety Skilled Intervention/Details: Supine->Sit: Poor initiation; assist for LE advancement and to push trunk to upright Sit to Supine Mobility [place] Level: Sit->Supine: dependent (less than 25% patient [...] tested Transfer Assessment: Sit to Stand Transfer [place] Level: Sit->Stand: not tested Gait/Functional Mobility: Wheelchair Assessment Patient currently uses wheelchair?: No Outcome Score(s): CURRENT [facility] Basic Mobility Inpatient Short Form Turning over in bed: 1 - Total Assistance Moving from lying on back to sittin - Total Assistance Moving to and from bed to chair: 1 - Total Assistance Sitting/standing from chair: 1 - Total Assistance Walk in hospital room: 1 - Total Assistance Climbing 3-5 steps with a railin - Total Assistance CURRENT [facility] Mobility Raw Score: 6 CURRENT [facility] Mobility Functional Limitation: 100.00% Impaired in Basic [...] OT clinical judgment, discharge destination recommendation is: Senior Care Facility Barriers to discharge home: Patient needs [...] support to increase distal control for task, [id number] assist Grooming Intervention/Details: Encouraged participation in grooming tasks including washing face and hair brushing to challenge UE strength and endurance; limited participation despite verbal, tactile, and positional cues to initiate. Provided PROM with [facility] assist to encourage participation and assess ROM [...] RN skin assessment) Mobility Assessment: Rolling/Turning Mobility [place] Level: Rolling/Turning: dependent (less than 25% patient effort) Physical Assist: Rolling/Turnin person assist Bed Features/Set-up: Rolling/Turning: Flat Skilled Rationale: Positioning, Sequencing, Hand placement, Verbal cues, Tactile cues, Initiation and execution of task Skilled Intervention/Details: Rolling/Turning: facilitated bilateral rolling to complete dependent pericare; total assist to initiate despite verbal and tactile cues to encourage participation Scooting Bridging Mobility [place] Level: Scooting/Bridging: dependent (less than 25% patient effort) Physical Assist: Scooting/Bridgin person assist Bed Features/Set-up: Scooting/Bridging: Flat Skilled Rationale: Positioning, Hand placement, Verbal cues Skilled Intervention/Details: Scooting/Bridging: boosted towards HOB x2 for optimal positioning Supine to Sit Mobility [place] Level: Supine->Sit: dependent (less than 25% patient [...] cues to initiate Sit to Supine Mobility [place] Level: Sit->Supine: dependent (less than 25% patient effort) Physical Assist: Sit->Supine: 2 person assist Bed Features/Set-up: Sit->Supine: Flat Skilled Rationale: Positioning, Sequencing, Verbal cues, Tactile cues, Initiation and execution of task, Cues for increased safety Skilled Intervention/Details: Sit->Supine: x1 from EOB; assist to guide trunk and BLE into supine for safety due to limited participation Transfer Assessment: Sit to Stand Transfer [place] Level: Sit->Stand: not tested Functional Mobility: Outcome Score(s): CURRENT [facility] Daily Activity Inpatient Short Form Putting on/Taking Off Lower Body Clothin - Total Assistance Bathin - Total Assistance Toiletin - Total Assistance Putting on/Taking Off Upper Body Clothin - Total Assistance Groomin - Total Assistance Eatin - Total Assistance CURRENT [facility] Activity Raw Score: 6 CURRENT [facility] Activity Functional Limitation/Modifier: 100.00% Currently Impaired in Daily Activity Currently Impaired in Daily Activity - CN CURRENT [facility] Applied Cognitive Inpatient Short Form Follow 10-15 min presentation: 1 - Total Assistance Understand familiar people during conversation: 1 - Total Assistance Takes meds at appropriate time: 1 - Total Assistance Remembers where things were placed: 1 - Total Assistance Remembers list of 4-5 errands without writing it down: 1 - Total Assistance Takes care of complicated tasks: 1 - Total Assistance CURRENT AM-PAC Cognitive Raw Score: 6 CURRENT AM-PAC Cognitive Functional Limitation/Modifier: 100.00% Currently Impaired in [...] voice CURRENT HOSPITALIZATION/ICU LOS: Admit Date: 05/04/2024 [facility] Hospital LOS: 4 days Scheduled Meds: cefTRIAXone [...] tube Q4H Continuous Infusions: Nepro/CarbSteady 35 mL/hr (05/08/24 1950) PRN Meds:bisacodyl, guaiFENesin, Ipratropium-albuterol, Senna OBJECTIVE FINDINGS: [...] 857.5 [I.V.:74.6; NG/GT:671; IV Piggyback:111.8] Out: 1974 [Urine:1974] PHYSICAL EXAM: Gen: Intubated / unresponsive Lung: Clear anteriorly, good air movement CV: RR Abd: Soft Ext: No pretibial edema Neuro: Level Of Consciousness: lethargic, obtunded Orientation: disoriented x 4 DIAGNOSTIC RESULTS/PROCEDURES: Radiology/Images: I have reviewed the radiology report and images in IHIS. Labs I have reviewed the laboratory studies in IS. ASSESSMENT/PLAN: ICU Problems (chronic problems not listed) [...] lymphedema who presented as a transfer from [facility] level of care after she presented with AMS and found to have status epilepticus. Hospital course c/b acute respiratory failure requiring intubation and JOSE requiring REHABILITATION MEDICINE PHYSICIAN for which nephrology is consulted. IMPRESSION Oliguric JOSE on CKD 4 JOSE likely due to ischemic and septic ATN due to septic shock Acute respiratory failure, on mechanical ventilatoin UTI with E coli. Anemia Seizure disorder Acute encephalopathy Hypocalcemia with normal corrected calcium Hypovitaminosis D Urine sediment (05/05/24): Dissolving granular casts, CaOx monohydrate crystals, WBCs, RTECs, debris PLAN No acute REHABILITATION MEDICINE PHYSICIAN need. Reassess daily. Monitor labs and UOP [...] Steiner MD DENNIS Nephrology Fellow, PGY-5 [facility] Pager: [phone] Renal Attending Attestation: Nicho Castle M.D. personally saw and examined the patient. I discussed the case, reviewed medications, diagnostic data with Dr. Stiener and agree with her findings, assessment and [...] warm and dry, no cyanosis. [facility] Relevant Data: Lab Results Component [...] (L) 05/04/2024 Lab Results Component Value Date WSDP74LHT 17.6 (L) 05/05/2024 * Pratik Young MD - 05/07/2024 6:50 PM EST Critical Care Progress Note INTERVAL HISTORY: Responding to some commands. Unable to keep circuit for CRRT due to clots CURRENT HOSPITALIZATION/ICU LOS: Admit Date: 05/04/2024 [facility] Hospital LOS: 3 days Scheduled Meds: [START [...] tube Q4H Continuous Infusions: Nepro/CarbSteady 35 mL/hr (05/07/24 2000) Propofol 25 mcg/kg/min (05/07/24 0500) PRN Meds:bisacodyl, [...] -- 1 Indwelling Urethral Catheter 05/04/24 2215 05/04/242214 -- 3 Naso/Oral Tube 05/05/24 0003 Nasogastric right nostril 05/05/24 0003 -- 2 Airway 05/04/242099 endotracheal tube 05/04/242099 -- 3 Fluid Management (24hrs): Intake/Output this [...] Pratik Young MD MPH * Martín Alford PRIVACY MANAGER - 05/07/2024 5:32 PM EST Vent Settings: [...] lymphedema who [facility] after she presented with AMS and found to have status epilepticus. Hospital course c/b acute respiratory failure requiring intubation and JOSE requiring REHABILITATION MEDICINE PHYSICIAN for which nephrology is consulted. IMPRESSION Oliguric [...] without access. Will need new access for REHABILITATION MEDICINE PHYSICIAN. No urgent need although likely suboptimal clearance [...] Steiner MD DENNIS Nephrology Fellow, PGY-5 [facility] Pager: [phone] Renal Attending Attestation: I, Nicho Monae M.D. personally saw and examined the patient. [...] palpation Extremities: 1+ feet edema Dialysis Access: LIJ temp HD catheter. Relevant [...] (L) 05/04/2024 Lab Results Component Value Date [id number] 17.6 (L) 05/05/2024 * Tata Sethi RPH - 05/06/2024 10:56 PM EST Department of Pharmacy Renal Documentation Note Patient: Mari Lopez Room/Bed: [facility] Assessment and Plan: The patient was initiated [...] any questions, Name: Tata Sethi RPH Phone: [phone] Date/Time: 05/06/2024 10:56 PM * Pratik Young MD - 05/06/2024 4:00 PM EST Critical Care Progress Note INTERVAL HISTORY: Responding to some voice. Off vasopressors CURRENT HOSPITALIZATION/ICU LOS: Admit Date: 05/04/2024 [facility] Hospital LOS: 2 days Scheduled Meds: acyclovir [...] Days Tunneled Central Line - Double Lumen 05/04/24 2100 red blue internal jugular vein, left 05/04/242099 -- 1 Peripheral IV Line - Single [...] than 1 Indwelling Urethral Catheter 05/04/24 2215 05/04/242214 -- 1 Naso/Oral Tube 05/05/24 0003 Nasogastric right nostril 05/05/24 0003 -- 1 Airway 05/04/242099 endotracheal tube 05/04/242099 -- 1 Fluid Management [...] Hightower RN - 05/06/2024 10:13 AM EST Drop Forger's Assessment and Summary: Overall Assessment: Ongoing AMS, respiratory failure, JOSE, and sepsis (UTI) Respiratory Status: Intubated (ay OSH) A) Passed SBT, but AMS impedes extubation Nutritional Support: NG PT/OT Recommendations: Pending CAM-ICU: Positive iHD Barriers to Discharge:Medical readiness Following: Neurology, Nephrology Discharge Goals: CM Primary SNF. No discharge date Next Steps: Monitoring progress; no definitive discharge plan has been established at this time. SANTINO Mo, RN 10 MICU Clinical Drop Forger (p) [phone] Available on secure chat FYI: Reason for [...] Dosing wt: 105#/47.7 kg - IBW EEN: 1803-6006 (28-33 kcal/kg IBW) EPN: 72-119 (1.5-2.5 g/kg IBW) Malnutrition Statement: Does the patient meet criteria for malnutrition: Unable to assess (pt intubated) *Based on [employer] Academy and ASPEN Indicators to Diagnose Malnutrition (AAIM) criteria (2012) Pt remains at nutrition risk due to clinical status, JOSE on CKD4, gastric bypass, AMS, c/f status epilepticus, acute respiratory failure, ileus, TF requirement. Grazyna TURCIOS, LD, [facility] Pager #[phone] * Josefina Cary MD - 05/06/2024 9:31 [...] lymphedema who presented [facility] a [facility] after she presented with AMS and found to have status epilepticus. Hospital course c/b acute respiratory failure requiring intubation and JOSE requiring REHABILITATION MEDICINE PHYSICIAN for which nephrology is consulted. IMPRESSION Oliguric [...] Josefina Cary MD Division of Nephrology [facility] Pager [phone] OBJECTIVE Vitals: BP 129/61 Pulse 82 Temp [...] the study is ended. Nicho Mcmillan MD Cover Remover Department of Neurology, Epilepsy Division * Taryn Lyon, [facility] - 05/06/2024 7:30 AM EST Department of Pharmacy Renal Documentation Note Patient: Mari Lopez Room/Bed: [facility] Assessment and Plan: The patient was initiated [...] any questions, Name: Taryn Lyon RPH Phone: [phone] Date/Time: 05/06/2024 7:31 AM * Nicho Mcmillan MD - 05/05/2024 11:59 PM EST Long-Term EEG Daily EEG Report: Start Time: 05/04/2024@8 Reviewed: 05/04/2024@2208-05/05/2024@2359 History/Indication: 83yoF admitted on 05/04/2024 with suspected [...] Intravenous Q72H norepinephrine Stopped (05/04/249) Propofol Stopped (05/05/245) Sodium chloride 0.9% 100 mL/hr at 05/05/24 [...] the study is ended. Nicho Mcmillan MD Cover Remover Department of Neurology, Epilepsy Division * Get Sheriff, Pharm Student - 05/05/2024 2:55 PM EST Department of Pharmacy Admission Medication Reconciliation Note Patient: Mari Lopez Room/Bed: [facility]0/E I have reviewed the patient's home medication list with the following sources Patient's family member/caregiver (Alex Atkinsonshahid, ), Dispense Report, and OARRs. I have [...] with Patient's family member/caregiver. Patient's listed pharmacy ([facility], ) was contacted and a voicemail was left to gather their Med Fill history. However after multiple attempts no further contact has been received from them. Please feel free to contact me with any further questions. Name: Juwan Campbell Student Preceptor: Taryn Lyon PharmKerri Date/Time: 05/05/2024 2:55 PM Time Spent: 80 minutes Cosigned by Taryn Lyon RP at 05/06/2024 1:10 PM EST Associated attestation - Taryn Lyon [facility] - 05/06/2024 1:10 PM EST Department of Pharmacy Admission Medication Reconciliation Note Patient: Mari Lopez Room/Bed: [facility] I have reviewed the home medication list with the Student. The home medication list status is: complete. A call to the pharmacy was not needed because the information compiled from listed sources corroborates the patient/caregiver interview. All changes to the home medication list have been updatedin IHIS. Updated TIN ASSORTER Med List: Prior to Admission Medications Prescriptions [...] Based on recent office visit (03/16/24 @ [facility]), patient was to start ferrous sulfate 325 mg daily and ascorbic acid 1000 mg daily Other Comments: There is no fill history for plain lisinopril going back 1 year, but consistent fill history for lisinopril/hydrochlorothiazide (most recent on 03/08/24 for a 90 day supply) Please feel free to contact me with any further questions. Name: Taryn Lyon [facility] Phone #: [phone] Date/Time: 05/06/2024 12:34 PM * Pratik Young MD - 05/05/2024 1:17 PM EST Critical Care Progress Note INTERVAL HISTORY: Unresponsive on vent. Freq ectopy on monitor. CURRENT HOSPITALIZATION/ICU LOS: Admit Date: 05/04/2024 [facility] Hospital LOS: 1 day Scheduled Meds: [START [...] (Adjusted) Intravenous Q72H Continuous Infusions: norepinephrine Stopped (05/04/242138) Propofol Stopped (05/05/24224) Sodium [...] Days Tunneled Central Line - Double Lumen 05/04/24 2100 red blue internal jugular vein, left 05/04/24 2100 -- less than 1 Percutaneous Central Line - Triple Lumen 05/04/24 2100 blue white brown internal jugular vein, right 05/04/24 2100 -- less than 1 Peripheral IV Line - Single Lumen 05/05/24 1245 forearm, anterior, right 22 gauge;1 in length 05/05/24 1245 -- less than 1 Indwelling Urethral Catheter 05/04/24 2215 05/04/24 2215 -- less than 1 Naso/Oral Tube 05/05/24 0003 Nasogastric right nostril 05/05/24 0003 -- less than 1 Airway 05/04/24 2100 endotracheal tube 05/04/242099 -- less than 1 [...] reviewed the radiology report and images in IS. Labs I have reviewed the laboratory studies in IS. ASSESSMENT/PLAN: ICU Problems (chronic problems not listed) [...] above. Pratik Young MD MPH * Shruthi Lyon, PRIVACY MANAGER - 05/05/2024 10:32 AM EST Discharge Planning Assessment Is the patient able to participate in the assessment?: No Explanation of why patient is unable to participate: Vent Care Management Plan Patient remains on ventilator. Assessment completed with patient's son, Gonzalo. Gonzalo is patient'sLNOK. Gonzalo lives in [place] but in town currently. Gonzalo reports that [...] depends regularly. Patient does not have current C but was completing outpatient PT at [facility] for recent shoulder surgery. Alex reports that she does work everyday and therefore, patient would not have 24/7 supervision at discharge. Will need PT/OT referrals. Patient remains on vent at this time. CM will continue to follow with medical team to coordinate discharge planning. Initial Discharge Planning Expected Discharge Disposition: Senior Care Facility (vs HHC. \) Transportation Available for Discharge: Ambulance, Private Vehicle, Family or Friend Anticipated DME: unknown at this time Anticipated Services at Discharge: Physical Therapy, Occupational Therapy, Outpatient follow up Patient Assessment Completed: Initial Legal Next of Kin Does the patient have a Guardian?: No Spouse: No Adult Child(melissa), List All Adult Children: Yes Name and Contact information: Gonzalo Lopez- [phone] Would you like to add additional adult [...] the patient on Anticoagulation? : No [id number] [place] [address] - [id number] [facility] [phone] [facility] [id number] Living Environment and Support System Is the patient from a facility or halfway?: No Living Environment: House Patient Caregiving Responsibilities: [...] themselves at home? : Unable to assess Loader Operator Supervisor Does the patient or credit and collections representative express financial concerns? : Unable to assess Shruthi Duenas RRT Clinical Sanforizing Machine Operator Please note that I am a float Sanforizing Machine Operator. For primary Sanforizing Machine Operatoraccount contact associate, or for up to date coverage, please contact FAISAL/SAMIR main office at [phone]. * Sheila Faria RCP - 05/05/2024 7:54 AM EST 05/05/24 0753 B = SAT/SBT Eligibility, Safety Screen & Outcomes (Document Daily in ICU) Is/Was patient receiving mechanical ventilation today? Yes Safety Screen SBT (Spontaneous Breathing Trial) Proceed with SBT - No exclusion criteria met Outcome for SBT (Spontaneous Breathing Trial) Oxygen saturation less than 88% - SBT Failure * Taryn Lyon [facility] - 05/05/2024 7:24 AM EST Department of Pharmacy Pharmacokinetics Progress Note Patient: Mari Lopez Room/Bed: [facility] Assessment and Plan: Based upon drug level assessment and interpretation (not at steady state), no changes to vancomycindose or dosing interval are indicated at this time. Further adjustments will be made based on REHABILITATION MEDICINE PHYSICIAN plan. A pharmacist will continue to follow [...] with any further questions. Name: Taryn Lyon [facility] Phone: [phone] Date/Time: 05/05/2024 7:24 AM * Jennifer Cloud [facility] - 05/04/2024 10:55 PM EST Department of Pharmacy Anticoagulant/Antithrombotic Progress Note Patient: Mari Lopez Room/Bed: [facility]0/E Assessment/Plan: The patient's most recent renal function [...] units subcutaneous Q8h . Name: Jennifer Cloud [facility] Phone: [phone] Date/Time: 05/04/2024 10:55 PM * Jennifer Cloud [facility] - 05/04/2024 10:38 PM EST Department of Pharmacy Renal Documentation Note Patient: Mari Lopez Room/Bed: 0460/E Assessment and Plan: The patient is currently [...] Q48H. I have modified the orders in IHIS to reflect the above plan.. Please contact with any questions, Name: Jennifer Cloud RPH Phone: [phone] Date/Time: 05/04/2024 10:38 PM * Jennifer Cloud RPH - 05/04/2024 9:08 PM EST Department of Pharmacy Outside Facility Transfer Note Patient: Mari Lopez Room/Bed: [facility]0/E Patient has transferred from an outside hospital ([facility]). [facility] the following antimicrobial, antiepileptic, and anticoagulant medications were received by the patient prior to arrival at [facility]: Antimicrobials: Vancomycin 500mg on 05/04 @ 1533 Antiepileptics: Keppra 4500mg on 05/04 @ 1451 Please feel free to contact me with any further questions. Name: Jennifer Cloud RPH Phone #: [phone] Date/Time: 05/04/2024 9:08 PM [facility] Discharge instructions* Discharge Instructions* Leslie Peterson [...] Miryam MATA. Please follow up with your miter sawyer, Dr. Gilmore, even if it is sooner than your regularly scheduled every 6 months. Please follow up with a annual campaign manager to assess your heart failure with preserved ejection fraction and abnormal motion of your heart muscle seen on echocardiography (ultrasound of your heart. It is okay to follow up with Dr. Jackson or see a new [facility] annual campaign manager. Please call cardiology at [phone] to schedule a follow up visit. Please follow up with a neurologist to follow up about your seizures. Please call Neurology [phone] to schedule an appointment Please review the first page of your after-visit summary for a detailed list of medication changes,follow-up instructions and scheduled appointments. Leslie Peterson MD documented in this [facility]02-12-2025 Hospital course Narrative* Leslie Peterson [...] HFpEF, and TADEO who presented initially to OSH on 05/01 with AMS. On 05/01/24 EMS transferred patient to [facility] and then she became non responsiveand hypotensive requiring norepinephrine. EEG noted GPDs and neurology was consulted and reviewed EEG who believed it met criteria status epilepticus. Patient was transferred to [facility] on 05/04 for further neurological medical management. She was admitted to the MICU for critical care management. Per H&P: The patient initially presented to the [facility] ED 05/01/24 with AMS found to havesevere [...] Heparin gtt transitioned to eliquis for DVT 2/2 CVC in L IJV. Per nephrologyrecs, she was diuresed w/ 20 mg lasix q8 for 24 hrs 05/10-. She experienced 10 runs of Vtach during the night 2/2 hypokalemia (K+ 2.8) and hypomagnesemia (Mg2+ 1.2). Electrolytes were repleted 05/11.Renal fx improved (Cr 2.50 --> 1.60) with diuresis, was ultimately transitioned to home PO lasix. On the floor she was followed by RUNNING INSTRUCTOR for dysphagia. She underwent FEES 05/13 with [...] with discharge back to her facility in [place]. Physical Exam on Day of Discharge: Gen: [...] Left basilar volume loss. No pneumothorax. I, Marav Wallis MD have discussed the critical finding/s of endotracheal tube malposition with PRATIK Angel ENNIS on 05/05/2024 9:59 AM. I personally [...] 75 MG TABS Follow-up: ADOLFO Aguillon [address] [phone] Follow up Please call to schedule a [...] of this patient. Nicol Judge MD, FACP [employer]i Maker of Clinical Medicine Division of General Internal Medicine and Geriatrics documented in this [facility] Procedure note* Shahram Nuñez, RUNNING INSTRUCTOR - 05/17/2024 11:24 AM ESTAssociated Order(s): SPEECH [...] on the below outcome measures/assessment score(s) and RUNNING INSTRUCTOR clinicaljudgment, discharge destination recommendation is: SNF. Patient [...] and Impaired cognitive skills limiting independence. Acute RUNNING INSTRUCTOR Outcomes Tracking Communicate basic wants and needs?: [...] Comments: On 05/01/24 EMS transferred patient to [facility] and thenshe became non responsive and hypotensive requiring norepinephrine. EEG noted GPDs and neurology was consulted and reviewed EEG who believed it met criteria status epilepticus. Patient was transferred to [facility] on 05/04 for further neurological medical management. She was admitted to the MICU for critical care management. Per H&P: The patient initially presented to the [facility] ED 05/01/24 with AMS found to havesevere [...] laryngeal edema and NGT. Consider transitioning to [facility]. Subjective information: Patient arrived at [facility] via transport. Reports significant back pain [...] teaspoon, single cup drink, and straw Varibar Chidester Barium: teaspoon, single cup drink, and straw [...] of Cues/Supervision: intermittent supervision Assistance: nurse/aide Acute RUNNING INSTRUCTOR Goals Plan of Care by AZAEL Blas at 05/17/2024 9:40 AM Version 1 of [...] oropharyngeal swallow function to most appropriately guide RUNNING INSTRUCTOR plan of care Outcome: Met Time In: 0940 Time Out: 1020 Total Visit Time: 40 minutes Total Treatment Time (skilled, billable minutes): 40 minutes RUNNING INSTRUCTOR Evaluation and Treatment Time MBS/Motion Fluoroscopic Swallowing Eval 04943: 40 Speech Language Pathologist: AZAEL Blas Time In: 40 Time Out: 1020 Total Visit Time: 40 minutes Total Treatment Time (skilled, billable minutes): 40 minutes Non-billable assistance during session: none Assisted by during session: Kavya Fuentes RUNNING INSTRUCTOR, Imani GANNON PPE used during patient interaction: gloves Patient location/status at end of session: (transport bed) Patient alarms at end of session: none altered RUNNING INSTRUCTOR Evaluation and Treatment Time MBS/Motion Fluoroscopic Swallowing Eval 73497: 40 Upon discontinuation of Acute Care Speech [...] on the below outcome measures/assessment score(s) and RUNNING INSTRUCTOR clinicaljudgment, discharge destination recommendation is: Pending instrumental swallow assessment. Acute RUNNING INSTRUCTOR Outcomes Tracking Communicate basic wants and needs?: [...] admitted on 05/04/2024 as a transfer from [facility]. Initially presented to the [facility] ED 05/01/24 with AMS found to have [...] activity Factors That Relieve Pain: repositioning Prior RUNNING INSTRUCTOR history: No prior RUNNING INSTRUCTOR history per chart review Current Method of [...] Read by: AZAEL Carvalho Scope Serial #: [id number] Feeder Name: Cindy Looney Topical Anesthetic: None Patient was positioned : [...] laryngeal vestibule Total: 5 (maximum 7) Toby A, Alana A, Beba M, Tad D, Amish S. Predictive Value of the [place] Secretion Scale (NZSS) for Pneumonia. Dysphagia. 2018 May;33(1):115-122. doi: 10.1007/p48199-888-9259-o. Epub 2016Nov 26. PMID: [id number]. Evans Secretion Scale (LAVERNE) The Evans Secretion [...] observation period Praful CW, Alma Delia CT, Aron CC, Dave CJ. Evans secretion scale and fiberoptic endoscopic evaluation of swallowing in predicting aspiration in dysphagic patients. Eur Arch Otorhinolaryngol. 2017 Pradip;274(5):8452-2546. doi: 10.1007/[id number]-a. Epub 2016Jun 15. PMID: [id number]. Consistencies Tested: Consistencies Tested Ice chip: 1/2 [...] the larynx or out of the airway [place] Pharyngeal Residue Severity Rating Scale: (Manuela Fields., Ilana Petersen, & Marty, S. (2015). The tamera pharyngeal residue severity rating scale: an anatomically defined and image-based tool. Dysphagia, 30, 521-525.) Ice Chips Valleculae Severity Rating: Trace (1-5%), Trace Coating of the Mucosa Pyriform Sinus Rating: Trace (1-5%), Trace Coating of Mucosa Thin Liquids (IDDSI 0) Valleculae Severity Rating: Trace (1-5%), Trace Coating of the Mucosa Pyriform Sinus Rating: Trace (1-5%), Trace Coating of Mucosa Mildly Thick Liquids (IDDSI 2)/Chidester Valleculae Severity Rating: Trace (1-5%), Trace Coating [...] 05/13: good prognosis, ongoing dypshagia management Acute RUNNING INSTRUCTOR Goals Plan of Care by AZAEL Carvalho at 05/13/2024 10:30 AM Version 1 of 1 Problem: Dysphagia Goal: FEES - Patient will participate in Fiberoptic Endoscopic Evaluation of Swallowing (FEES) study to objectively assess pharyngeal swallow function to most appropriately guide RUNNING INSTRUCTOR plan of care Outcome: Ongoing Speech Language Pathologist: AZAEL Carvalho, BCS-S Board Certified Specialist in Swallowing and Swallowing Disorders Available via Epic Chat Time In: 1200 Time Out: 1235 Total Visit Time: 35 minutes Total Treatment Time (skilled, billable minutes): 35 minutes RUNNING INSTRUCTOR Evaluation and Treatment Time FEES/Endoscopic Swallowing Eval 30798: 35 Swallowing Dysfunction Treatment 59450: 20 Non-billable assistance during session: none Assisted [...] with the EEG interpretation Mulugeta Barker MD Cover Remover, Department of Neurology, Epilepsy Section [facility] Cosigned by Mulugeta Barker MD at 05/09/2024 5:30 PM EST * Nicho Mcmillan MD - 05/06/2024 9:08 AM ESTAssociated Order(s): EEG APPROVER MONITORING STUDY NAME: Continuous video-EEG recording REFERRING PHYSICIAN: Paulino Whitehead MD / Kindra Gannon MD DATE AND TIME START OF RECORDIN05/04/2024@8 DATE AND TIME END OF RECORDIN05/06/2024@0908 HISTORY: [...] Intravenous Q72H norepinephrine Stopped (05/04/249) Propofol Stopped (05/05/245) Sodium chloride 0.9% 100 mL/hr at 05/05/24 [...] correlation advised. Nicho Mcmillan MD EEG Attending Cover Remover Department of Neurology, Epilepsy Division [facility] * CHRISTINE Braun - 05/05/2024 6:06 PM ESTAssociated Order(s): Lumbar Puncture Post-Procedure Diagnose(s): Status epilepticus Lumbar Puncture Procedure Start: 14:07 EST Procedure Stop: 14:25 EST Performed by: CHRISTINE Braun Authorized by: CHRISTINE Branu Location of procedure: ICU Room number: 460E Name of Drill Hand: Kasey Jane RN [place] Protocol Written consent obtained Risks and benefits [...] to verify the correct patient, procedure, equipment, network support and site/side marked as required Anesthesia Local [...] hour. CHRISTINE Braun documented in this encounterOS[facility] Consult note* Joshua Gallardo RN - 05/12/2024 [...] midline or PIV. Team notified. PICC pager [phone] PIV pager [phone] * Ying Reeder RN - 05/11/2024 6:17 [...] time. New IV not needed PICC pager [phone] PIV pager [phone] * Joel Calderon DO - 05/10/2024 11:55 AM EST NEUROLOGY [...] upper thoracic spine. MRI C spine w/wo 2/3 Questionable small focus of abnormal cortical/subcortical FLAIR signal in the medial right parietal lobe. This could be artifactual or potentially related to postictal changes. Diagnostics: cEEG 05/04-05/05 The findings were consistent with nonspecific moderate diffuse encephalopathy. EKG channel was abnormal. Clinical correlation advised Routine EEG 05/09 This is an abnormal inpatient routine vEEG [...] to reach POA Additional note: PICC pager [phone] PIV pager [phone] * Joel Calderon DO - 05/09/2024 12:39 [...] was abnormal. Clinical correlation advised Routine EEG 05/09 This is an abnormal inpatient routine vEEG [...] 83 yo female initially presented to the [facility] ED 1/26/25 with worsening AMS over 2 days, she [...] metabolic encephalopathy, in the setting of Uremia, JSOE, Acidosis, etc Given improvement, will continue to [...] A&O x 3). She initially presented to [facility] ED 05/01/2024 where she was non- responsive [...] and diffuse moderate to severe encephalopathy. Recommend termination clerk monitoring for further characterization of concern for [...] 9:06 AM EST Associated attestation - Gerardo Rogesr MD - 05/09/2024 9:06 AM EST I [...] CONSULTATION NOTE Reason for Consultation: JOSE requiring REHABILITATION MEDICINE PHYSICIAN Referring Provider: Pratik Young MD Hospital Day: 1 ASSESSMENT AND PLAN: 83F with PMH of CKD 4, neurogenic bladder, HTN, obesity s/p gastric bypass, TADEO, COPD, HFpEF, hypothyroidism, DVT/PE, chronic lymphedema who presented as a transfer from [facility] after she presented with AMS and found to have status epilepticus. Hospital course c/b acute respiratory failure requiring intubation and JOSE requiring REHABILITATION MEDICINE PHYSICIAN for which nephrology is consulted. IMPRESSION Oliguric [...] to septic shock No urgent indication for REHABILITATION MEDICINE PHYSICIAN given stable electrolytes and volume status. Will continue to monitor. Follow-up vitamin D levels Accurate Is/Os Avoid nephrotoxins as able Please direct all questions/concerns to Qgenda --> Internal Medicine --> Nephrology --> Ross Consults Josefina Cary MD Division of Nephrology [facility] Pager [phone] SUBJECTIVE 83F with PMH of CKD 4, neurogenic bladder, HTN, obesity s/p gastric bypass, TADEO, COPD, HFpEF, hypothyroidism, DVT/PE, chronic lymphedema who presented as a transfer from [facility] after she presented with AMS and found to have status epilepticus. Hospital course c/b acute respiratory failure requiring intubation and JOSE requiring REHABILITATION MEDICINE PHYSICIAN. Unclear what pt's baseline Cr is and how many sessions of REHABILITATION MEDICINE PHYSICIAN she received at the OSH given lack ofrecords, although she had a session of HD on 05/02 and another on 05/04. Pt appears to be followingwith a miter sawyer but no records in the system. At [...] hyperparathyroidism, hypothyroidism, BAYRON, gastric bypass (2003), and TAEDO who presented as a transfer for AMS [...] A&O x 3). She initially presented to [facility] ED 05/01/2024 where she was non- responsive [...] and diffuse moderate to severe encephalopathy. Recommend nursing home monitoring for further characterization of concern for [...] 7,500 Units Subcutaneous Q8H 0800/1600/2200 Jennifer Cloud RP7,500 Units at 05/04/242303 Ipratropium-albuterol (DUONEB) 0.5-2.5 (3) MG/3ML nebulizer solution 3 mL 3 mL Nebulization Q6H PRNMatthew CHRISTINE Gonzalez levETIRAcetam (KEPPRA) injection 1,000 mg 1,000 mg Intravenous Q24H Paulino Whitehead MD [START ON 05/06/2024] levoFLOXacin (LEVAQUIN) tablet 500 mg 500 mg Per NG tube Q48H Jennifer Cloud RP Levothyroxine (SYNTHROID) tablet 125 mcg 125 mcg Oral Before BKF Paulino Whitehead MD LORazepam (ATIVAN) injection 2 mg 2 mg Intravenous Q1H PRN CHRISTINE Jacinto Norepinephrine (LEVOPHED) 4 mg in normal saline 250ml IV infusion premade 0-0.1 mcg/kg/min (Order-Specific) Intravenous Continuous Paulino Whitehead MD Stopped at 05/04/242138 Propofol (DIPRIVAN) 1000 MG/100ML premix infusion 0-50 mcg/kg/min (Order- Specific) Intravenous Continuous Paulino Whitehead MD 7 mL/hr at 05/04/248 10 mcg/kg/min at 05/04/242327 Vancomycin HCl in NaCl (Vancocin) 1,500 mg in 0.9% NS 250 mL premix IVPB 20 mg/kg (Adjusted) Intravenous Q72H Jennifer Cloud, [facility] Physical Examination Temp: [98.6 F [...] and UTI. Recommendations: - check ECG; if SD interval < 200ms, would discontinue Keppra in favor of Vimpat 100mg BID givenher renal function - cEEG placed - CTH now, MRI brain once EEG no longer needed and removed - nephrology consult to evaluate for REHABILITATION MEDICINE PHYSICIAN Thank you for the consultation. If you [...] 150's and creat 7, patient started on REHABILITATION MEDICINE PHYSICIAN). Of note also had been taking Flexeril 10 mg TID and Ambien 10 mg qday per pharmacist. For seizure prophylaxis will avoid Keppra due toCKD and start Vimpat maintenance. Will continue EEG for today. Gerardo Rogers M.D. Attending Neurologist documented in this encounterOS[facility]29[facility] History and physical note* Paulino Whitehead [...] epilepticus. The patient initially presented to the [facility] ED 05/01/24 with AMS found to havesevere [...] is her HCPOA and lives out of state. He is traveling to [place]. PAST MEDICAL, SURGICAL, FAMILY, and SOCIAL HISTORY [...] -- less than 1 Indwelling Urethral Catheter 01/221405/04/242214 -- less than 1 Naso/Oral Tube 05/04/242099 [...] Labs-ABGs Labs-CBC WBC/Hgb/Hct/Plts: 17.39/7.9/24.7/96 (05/04 2107) Labs-Chem 7([facility]) Bun/Creat/Cl/CO2/Glucose: 49/3.28/104/22/105 (05/04 2107) Na/K+/Phos/Mg/Ca: 135/4.5/3.8/1.5/-- (05/04 [...] in the setting of underlying CKD. Initiatedon REHABILITATION MEDICINE PHYSICIAN 05/02. - Nephrology consulted for continuation of REHABILITATION MEDICINE PHYSICIAN. The patient received HD 05/04. - Renally [...] was discussed with Dr. Gannon, the attending substation design draftsperson for the MICU. Paulino Whitehead MD Cosigned by Pratik Young MD at 05/05/2024 8:08 AM EST documented in this encounterL[facility] Telephone encounter Note* Telephone Encounter - Olga Dillard RN - 05/02/2024 9:24 AM EST Friend (Alex) calls to let provider's office know that patient is currently at [facility] in the ICU for sepsis and kidney failure. Nothing further needed at this time. Closing encounter. Olga Dillard RN [facility]01-27-2025 Miscellaneous Notes* Telephone Encounter - Olga Dillard RN - 05/02/2024 9:24 AM EST Friend (Alex) calls to let provider's office know that patient is currently at [facility] in the ICU for sepsis and kidney failure. Nothing further needed at this time. Closing encounter. Olga Dillard RN documented in this encounterBarney Children'[facility]01-26-2025 Evaluation note* Diagnosis Onset Date Resolution Status [...] + stool acute May 7:11pm Hyperphosphatemia acute y 2024 7:11pm Left wrist pain acute [...] 7:11pm Chronic kidney disease deleted 2024 7:11pm [facility] Work Phone: 1(657) 124-988412-11-2024 NoteHNO ID: [id number] Author: MIRYAM OROZCO APRN.SAGGER MAKER Service: ? Author Type: Nurse Practitioner Type: [...] total shoulder arthroplasty on 02/22/2024. Which facility: [facility] Date of visit: 02/25/2024-03/02/2024 Diagnosis: S/P [...] study ordered for 03/04/2024, will follow-up with [facility] pulmonary medicine to go over results. Discharge with PT at [facility]. Instructed to follow-up with surgeon, Dr. Carson. Placed on doxycycline due to arm pain to cover for possible cellulitis where IV was placed. Venous Doppler was negative for any thrombosis in the arm. Needs to complete bone density. Current symptoms: Had follow up with Surgeon, still wearing sling until March 21, still doing PT twice weekly, at [facility]. Doing well since surgery. Next following [...] CONDYLEANDPLATU MEDIALANDLAT COMPARTMENTS 1990 bilateral total knee s([place]) ARTHRP KNE CONDYLEANDPLATU MEDIALANDLAT COMPARTMENTS 10/24/2004 bilateral [...] shoulder. Dr. Klaus Omalley with [facility] Ortho ALLERGIES Bactrim [Sulfamethoxazole-Trimethoprim], Ibuprofen, Kefzol [Cefazolin [...] ounces of liq (more content not included)... [facility]12-02-2024 Telephone encounter Note* Telephone Encounter - Mulugeta Jennings APRN.CNP - 03/07/2024 10:53 AM EST Approved. PDMP website checked and validated. All prescriptions have been APPROPRIATELY filled. No suspiciousactivity was identified. 03/07/2024 by Mulugeta Jennings APRN.CNP The following approved medication requests have been transmitted electronically. Requested Prescriptions Signed Prescriptions Disp Refills zolpidem (AMBIEN) 10 mg 30 tablet 2 Sig: Take 1 tablet by mouth at bedtime as needed for up to 90 days. Authorizing Provider: MULUGETA JENNINGS APRN.CNP [facility]12-02-2024 Miscellaneous Notes* Telephone Encounter - Mulugeta Jennings APRN.CNP - 03/07/2024 10:53 AM EST Approved. PDMP website checked and validated. All [...] needed for up to 90 days. Piedad Aguayo Diogenes [facility] March 07, 2024 10:17 AM documented in this encounterBarney Children'[facility] Center12-02-2024 Telephone encounter Note * Telephone Encounter - Diogenes ColePiedad - 03/07/2024 10:17 AM EST Prescription Refill [...] needed for up to 90 days. Piedad Aguayo Diogenes [facility] March 07, 2024 10:17 AM [facility]11-27-2024 [facility]11-21-2024 [facility]11-08-2024 Telephone encounter Note* Telephone Encounter - Alex Lackey MA - 02/12/2024 10:08 AM EST OV note and form faxed. Alex Lackey MA [facility]11-08-2024 Miscellaneous Notes* Telephone Encounter - Alex Lackey [...] needs to be faxed to [facility] at [phone]. Pt scheduled for Left reverse total shoulder arthroplasty on 02/22/[address] Klaus Omalley. Pt has PAT on 02/18/24 at [facility]. Pt last OV on 01/28/24 with Miryam Orozco for routine follow up. Route to [place] when form completed for processing documented in this encounterBarney Children'S Medical Center11-08-2024 Telephone encounter Note * Telephone Encounter - Lizy Capone MD - 02/12/2024 10:00 AM EST Form done; send with copy of 01/27 note Lizy Capone MD [facility]11-08-2024 Telephone encounter Note* Telephone Encounter - Alex Lackey MA - 02/12/2024 8:57 AM EST Type of letter/form/fax request - medical clearance request for surgery Form received from fax on 1 floor and placed on MD desk (Dr. Capone) for completion. Completed form needs to be faxed to [facility] at [phone]. Pt scheduled for Left reverse total shoulder arthroplasty on 02/22/[address] Klaus Omalley. Pt has PAT on 02/18/24 at [facility]. Pt last OV on 01/28/24 with Miryam Orozco for routine follow up. Route to NE when form completed for processing [facility]10-24-2024 Instructions* Patient Instructions* Miryam Orozco APRN.CNP - 01/28/2024 9:20 AM EDT Get repeat fasting labs in 6 months prior to next visit Continue to take all medication as prescribed Keep scheduled appointments with specialists. Flu and covid given today Follow up in 6 months or sooner as needed. documented in this encounterBarney Children'S Medical Center10-24-2024 History of Present illness Narrative* Miryam Orozco [...] shoulder surgery in February with [facility], Dr. Omalley. LLE: Lasix 40 mg for [...] CONDYLE&PLATU MEDIAL&LAT COMPARTMENTS 1990 bilateral total knee s([place]) ARTHRP KNE CONDYLE&PLATU MEDIAL&LAT COMPARTMENTS 10/24/04 bilateral total knee revisions DELIVERY ONLY , low cervical CHOLECYSTECTOMY COLONOSCOPY FLX DX W/COLLJ SPEC WHEN PFRMD 11/17/2017 Colonoscopy DEBRIDEMENT SUBCUTANEOUS TISSUE 20 SQ CM/< 02/17/07 LEFT LEG DEBRIDEMENT SUBCUTANEOUS TISSUE 20 SQ CM/< [id number] LEFT LEG DEBRIDEMENT SUBCUTANEOUS TISSUE 20 SQ CM/< [id number] LEFT LEG DEBRIDEMENT SUBCUTANEOUS TISSUE 20 SQ CM/< [id number] LEFT LEG DEBRIDEMENT SUBCUTANEOUS TISSUE 20 SQ CM/< [id number] LEFT LEG DEBRIDEMENT SUBCUTANEOUS TISSUE 20 SQ [...] mg 24 hr tablet Take by mouth. Cqeicsipufl-Nmxddrxcs-Ytd C-Mn (GLUCOSAMINE CHONDROITIN MAXSTR) 500-400 mg cap Take 1 capsule by mouth three times daily. COMPOUNDED PRESCRIPTION Stair lift DAILY-LUISITO tablet TAKE 1 TABLET BY MOUTH ONCE DAILY. qiejutx-jcwnenghh-lgkaupv D3 (CALCIUM 500+D) 500 mg(1,250mg) -200 unit [...] YR, HIGH DOSE, TRIVALENT (FLUZONE HIGH-DOSE) - fastDove COVID-19 VACCINE AGE 12+ YR ([place]) Follow-up in 6 months with labs Discussed treatment plan and patient voices understanding. Patient's questions answered appropriately. Medications and potential side effects were discussed and patient voices understanding. Miryam Orozco APRN.CJ This note was partially generated using Pickie voice recognition system. Note was reviewed for accuracy. There may be minor misspellings or grammar miscues with Pickie voice recognition. documented in this encounterBarney Children'S Medical Center10-24-2024 NoteHNO ID: [id number] Author: MIRYAM OROZCO APRN.CNP Service: ? Author [...] shoulder surgery in February with [facility], Dr. Omalley. LLE: Lasix 40 mg for [...] and thrombophlebitis of femoral vein (deep) (superficial) ([facility]) Unspecified sleep apnea PAST SURGICAL HISTORY Procedure Laterality Date ANESTHESIA HERNIA REPAIR LOWER ABDOMEN NOS 04/2004,05/11 gortex put in on 05/11 then taken out06/08 ARTHRP KNE CONDYLEANDPLATU MEDIALANDLAT COMPARTMENTS 1990 bilateral total knee s([place]) ARTHRP KNE CONDYLEANDPLATU MEDIALANDLAT COMPARTMENTS 10/24/04 bilateral total knee revisions DELIVERY ONLY , low cervical CHOLECYSTECTOMY COLONOSCOPY FLX DX W/COLLJ SPEC WHEN PFRMD 11/17/2017 Colonoscopy DEBRIDEMENT SUBCUTANEOUS TISSUE 20 SQ CM/< 02/17/07 LEFT LEG DEBRIDEMENT SUBCUTANEOUS TISSUE 20 SQ CM/< [id number] LEFT LEG DEBRIDEMENT SUBCUTANEOUS TISSUE 20 SQ CM/< [id number] LEFT LEG DEBRIDEMENT SUBCUTANEOUS TISSUE 20 SQ CM/< [id number] LEFT LEG DEBRIDEMENT SUBCUTANEOUS TISSUE 20 SQ CM/< [id number] LEFT LEG DEBRIDEMENT SUBCUTANEOUS TISSUE 20 SQ [...] UNDERWEAR FOR WOMEN XL (more content not included)...[facility]09-30-2024 Telephone encounter Note* Telephone Encounter - Michael Diop - 01/04/2024 8:38 AM EDT Lvm for patient to call back and schedule an appointment with Dr. Jackson. [facility]09-30-2024 Miscellaneous Notes* Telephone Encounter - Michael Diop [...] having a Left total knee replacement. Weston Branch documented in this encounterBarney Children'S [facility] Center09-26-2024 Telephone encounter Note * Telephone Encounter - Michael Diop - 12/31/2023 8:14 AM EDT Lvm for patient to call back and schedule an appointment with Dr. Jackson. [facility]09-24-2024 Telephone encounter Note* Telephone Encounter - Michael iDop - 12/29/2023 10:40 AM EDT Lvm for patient to call back and schedule an appointment with Dr. Jackson for knee pain. [facility]09-24-2024 Telephone encounter Note* Telephone Encounter - Weston Humphrey - 12/29/2023 8:53 AM EDT Patient is being referred to Dr. Jackson by Dr. Lokesh Mc for left knee pain. Please reach out to patient and assist with scheduling a consultation. 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 Weston Branch [facility]09-12-2024 Telephone encounter Note* Telephone Encounter - Analia Gracia RN - 12/17/2023 3:43 PM EDT Pt called and is notified of providers message. Pt voices understanding. Analia Gracia RN [facility]09-12-2024 Miscellaneous Notes* Telephone Encounter - Analia Gracia [...] some form exercise. Keep scheduled appointments with miter sawyer. Please let me know what she prefers regarding her thyroid. Thank you Miryam Orozco APRN.CJ documented in this encounterBarney Children'S [facility] Center09-12-2024 Telephone encounter Note * Telephone Encounter - Miryam Orozco APRN.CNP - 12/17/2023 3:31 PM EDT Lab orders have been placed. Miryam Orozco APRN.CNP [facility]09-12-2024 Telephone encounter Note* Telephone Encounter - Lilo Maurer LPN - 12/17/2023 3:00 PM EDT Patient returned call, given below results/recommendations, verbalized understanding. Patient wanting to stay on same dose of Synthroid and recheck labs in 6-8 weeks. Lilo Maurer LPN [facility]09-12-2024 NoteHNO ID: [id number] Author: AMADA VELASCO LPN Service: ? Author [...] and suicidal ideas. The patient is not nervous/anxious.[facility] History of Present illness Narrative* Amada Velasco [...] not included. [facility] Today's Date: 12/17/2023 Name: Mari Lopez [...] - Initial HPI (Obtained by Avis Marrufo APRN.SAGGER MAKER ). From 03/2022 - She previously inquired [...] Tylenol (Acetaminophen), Aspirin Opioids: Tramadol, Hydrocodone (eg [place]) Data Reviewed Today: Allergies: ALLERGIES Allergen Reactions [...] DATE OF EXAM: Apr 29 2022 9:42AM JUSTIN 0303 - MRI LUMBAR SPINE WO IVCON [...] and assume there are 5 lumbar-type vertebrae. Loftsman/Woman: CHEIKH Transcribe Date/Time: Apr 29 2022 10:41A Dictated by : ANA MONK MD This examination was interpreted and the report reviewed and electronically signed by: KENDALL GOMEZ MD on Apr 29 2022 2:36PM EST X-ray Lt. Knee 10/2023 X-ray Rt. Knee 10/2023 X-ray Bilateral Shoulder 01/2023 Right shoulder: Suboptimal positioning. There appears to be severe glenohumeral osteoarthritis lmqbpwmi-jp-ozoi contact. Faint chondrocalcinosis at the glenohumeral joint. Ossific density projectingover the humeral head/neck is suboptimally evaluated due to poor positioning though may represent aintra- articular body. Mild degenerative change acromioclavicular joint. Acromiohumeral interval is maintained. No acute fracture. Left shoulder: Suture anchor in the humeral head prior rotator cuff repair. Severe glenohumeral osteoarthritis with ovgz-ly-smkv contact. Intra-articular bodies medial to the humeral [...] bony destructive process. Lumbar: There are five uhx-edi-bcwgclj lumbar vertebrae. No acute fracture or subluxations [...] report bilateral flank pain. She states her annual campaign manager, PCP and miter sawyer advised her pain is coming from her [...] - Suprascapular Nerve under ultrasound guidance LEFT-SIDED Rn Staff Needed: Radiofrequency Ablation - YES Anticoagulant - Hold Needed: NO HOLD REQUIRED FOR THIS PROCEDURE Anticoagulant - Currently Taking: None Allergies (relevant): None Scheduling - Mobility (Can Patient independently transfer on/off an OR or Procedure table?): YES (May schedule at any location) Scheduling - Additional Info: Schedule after January 13 - she will call when ready Studies: None Functional Worship: NONE Referrals: Orthopedics ([phone]) Follow-up: 3 months for medications CAREY Depending [...] MD Pain Management [facility] documented in this encounterBarney Children'[facility]09-12-2024 Telephone encounter Note * Telephone Encounter - Minna Blue LPN - 12/17/2023 8:46 AM EDT TC to pt. LM to call office, ask for triage nurse to get results. Minna Blue LPN [facility]09-11-2024 Telephone encounter Note* Telephone Encounter - Miryam Orozco APRN.SAGGER MAKER - 12/16/2023 7:25 PM EDT Can you [...] some form exercise. Keep scheduled appointments with miter sawyer. Please let me know what she prefers regarding her thyroid. Thank you Miryam Orozco APRN.SAGGER MAKER [facility]09-10-2024 NoteHNO ID: [id number] Author: ROQUE DELGADO MD Service: ? Author Type: Physician Type: Progress Notes Filed: 12/17/2023 09:15 Note Text: [facility] Today's Date: 12/17/2023 Name: Mari Lopez [...] - Initial HPI (Obtained by Avis Marrufo APRN.SAGGER MAKER ). From 03/2022 - She previously inquired [...] (Right) Nearly 10 (more content not included)... [facility] Telephone encounter Note* Telephone Encounter - Gonzalo Holland - 12/14/2023 1:31 PM EDT Patient has been rescheduled with Dr. Delgado in [place] on 12/16 at 8:45am. Gonzalo Holland [facility]09-09-2024 Miscellaneous Notes* Telephone Encounter - Gonzalo Holland - 12/14/2023 1:31 PM EDT Patient has been rescheduled with Dr. Delgado in [place] on 12/16 at 8:45am. Gonzalo Holland * [...] elaborate or confirm Was Patient Referred to [facility]/Seek Emergency Treatment (Y/N): n Did Patient Agree (Y/N): n/a Was An Attempt Made To Transfer The Patient To The Office (Y/N): n Were You Able To Reach Someone At The Office (Y/N): n/a If Yes - Patient Was Transferred To (Caregivers Name): n/a If No - Which [facility] Leadership Computer Systems Design Analyst Did You Speak With Regarding This Patient: n/a Was an appointment scheduled (Y/N): n Reason patient was requesting visit (RFV/signs and symptoms/diagnosis) : n/a Person calling if other than patient: self Return call to if other than patient: self Best contact number: [phone] Thank you, Linda Singh December 14, 2023 12:40 PM documented in this encounterBarney [facility]09-[facility]24 Telephone encounter Note * Telephone Encounter - Sofía Crowe - 12/14/2023 1:03 PM EDT This patient does not have mychart- but was scheduled for a VV Please reschedule her to in person as we do not schedule phone call visits any longer [facility]09-09-2024 Telephone encounter Note* Telephone Encounter - Sofía Crowe - 12/14/2023 [...] elaborate or confirm Was Patient [facility]erred [facility] Emergency Treatment (Y/N): n Did Patient Agree (Y/N): n/a Was An Attempt Made To Transfer The Patient To The Office (Y/N): n Were You Able To Reach Someone At The Office (Y/N): n/a If Yes - Patient Was Transferred To (Caregivers Name): n/a If No - Which [facility] Leadership Computer Systems Design Analyst Did You Speak With Regarding This Patient: n/a Was an appointment scheduled (Y/N): n Reason patient was requesting visit (RFV/signs and symptoms/diagnosis) : n/a Person calling if other than patient: self Return call to if other than patient: self Best contact number: [phone] Thank you, Linda Shettydanish December 14, 2023 12:40 PM [facility]09-09-2024 Telephone encounter Note* Telephone Encounter - Miryam Orozco APRN.CNP - 12/14/2023 11:31 AM EDT Order for physical therapy has been placed. Will be faxed to [facility]. Miryam Orozco APRN.CNP [facility]09-09-2024 Miscellaneous Notes* Telephone Encounter - Miryam Orozco APRN.CNP - 12/14/2023 11:31 AM EDT Order for physical therapy has been placed. Will be faxed to [facility]. Miryam Orozco APRN.SAGGER MAKER * Telephone Encounter - Minna Blue LPN - 12/14/2023 10:36 AM EDT Pt came to window requesting a order for Physical Therapy due to frequent falls. She would like it faxed to [facility]. Minna Blue LPN documented in this encounterBarney Children'[facility]09-09-2024 Telephone encounter Note * Telephone Encounter - Minna Blue LPN - 12/14/2023 10:36 AM EDT Pt came to window requesting a order for Physical Therapy due to frequent falls. She would like it faxed to [facility]. Minna Blue LPN [facility]09-06-2024 Telephone encounter Note* Telephone Encounter - Lizy Capone MD - 12/11/2023 10:01 AM EDT OK to refill as ordered Lizy Capone MD [facility]09-06-2024 Miscellaneous Notes* Telephone Encounter - Lizy Capone [...] 11, 2023 9:32 AM documented in this encounterBarney Children'S [facility] Center09-06-2024 Telephone encounter Note * Telephone Encounter - [...] Isabell Dove December 11, 2023 9:32 AM [facility]08-30-2024 NoteHNO ID: [id number] Author: STARR SOLANO MD Service: ? Author [...] L1 SAB0 IAB0 Ectopic0 Multiple0 Live Births0 Film Reader History LMP: Postmenopausal Age at Menarche: Age at First : Age at Menopause: Film Reader History Comments: Sexual Activity: Never; No partner [...] and thrombophlebitis of femoral vein (deep) (superficial) ([facility]) No date: Unspecified sleep apnea PAST SURGICAL HISTORY 04/2004,05/11: ANESTHESIA HERNIA REPAIR LOWER ABDOMEN NOS Comment: gortex put in on 05/11 then taken out06/08 1990: ARTHRP TOMMY CONDYLEANDPLATU MEDIALANDLAT COMPARTMENTS Comment: bilateral total knee s([place]) 10/24/04 : ARTHRP MELONYE CONDYLEANDPLATU MEDIALANDLAT COMPARTMENTS Comment: bilateral total knee revisions No date: DELIVERY ONLY Comment: , low cervical No date: CHOLECYSTECTOMY 11/17/2017: COLONOSCOPY FLX DX W/COLLJ SPEC WHEN PFRMD Comment: Colonoscopy 02/17/07: DEBRIDEMENT SUBCUTANEOUS TISSUE 20 SQ CM/< Comment: LEFT LEG [id number]: DEBRIDEMENT SUBCUTANEOUS TISSUE 20 SQ CM/< Comment: LEFT LEG [id number]: DEBRIDEMENT SUBCUTANEOUS TISSUE 20 SQ CM/< Comment: LEFT LEG [id number]: DEBRIDEMENT SUBCUTANEOUS TISSUE 20 SQ CM/< Comment: LEFT LEG [id number]: DEBRIDEMENT SUBCUTANEOUS TISSUE 20 SQ CM/< Comment: [...] mg 24 hr tablet Take by mouth. Gdjqqtchfww-Qatqsutnq-Ftk C- (more content not included)...[facility]08-30-2024 History of Present illness Narrative* Starr [...] L1 SAB0 IAB0 Ectopic0 Multiple0 Live Births0 Film Reader History LMP: Postmenopausal Age at Menarche: Age at First : Age at Menopause: Film Reader History Comments: Sexual Activity: Never; No partner [...] and thrombophlebitis of femoral vein (deep) (superficial) ([facility]) No date: Unspecified sleep apnea PAST SURGICAL HISTORY 04/2004,05/11: ANESTHESIA HERNIA REPAIR LOWER ABDOMEN NOS Comment: gortex put in on 05/11 then taken out06/08 1991: ARTHRP KNE CONDYLE&PLATU MEDIAL&LAT COMPARTMENTS Comment: bilateral total knee s([place]) 10/24/04 : ARTHRP KNE CONDYLE&PLATU MEDIAL&LAT COMPARTMENTS Comment: bilateral total knee revisions No date: DELIVERY ONLY Comment: , low cervical No date: CHOLECYSTECTOMY 11/17/2017: COLONOSCOPY FLX DX W/COLLJ SPEC WHEN PFRMD Comment: Colonoscopy 02/17/07: DEBRIDEMENT SUBCUTANEOUS TISSUE 20 SQ CM/< Comment: LEFT LEG [id number]: DEBRIDEMENT SUBCUTANEOUS TISSUE 20 SQ CM/< Comment: LEFT LEG [id number]: DEBRIDEMENT SUBCUTANEOUS TISSUE 20 SQ CM/< Comment: LEFT LEG [id number]: DEBRIDEMENT SUBCUTANEOUS TISSUE 20 SQ CM/< Comment: LEFT LEG [id number]: DEBRIDEMENT SUBCUTANEOUS TISSUE 20 SQ CM/< Comment: [...] mg 24 hr tablet Take by mouth. Hugiznscbjh-Zeicslryb-Fot C-Mn (GLUCOSAMINE CHONDROITIN MAXSTR) 500-400 mg cap Take 1 capsule by mouth three times daily. COMPOUNDED PRESCRIPTION Stair lift DAILY-LUISITO tablet TAKE 1 TABLET BY MOUTH ONCE DAILY. egmmxne-qcqrctcjj-iplytnp D3 (CALCIUM 500+D) 500 mg(1,250mg) -200 unit [...] which included preparing to see the patient, brux-or-ywkf patient care, completing clinical documentation, obtaining and/or reviewing separately obtained history, performing a medically appropriate examination, and counseling and educating the patient/family/caregiver. Starr Broderick MD documented in this encounterBarney Children'S [facility] Center08-14-2024 Telephone encounter Note * Telephone Encounter - Jorje Nagel LPN - 11/18/2023 11:25 AM EDT Attempted to contact patient to follow up after procedure. Left a brief message asking patient to return call if they have any questions or concerns. Jorje Nagel LPN [facility]08-14-2024 Miscellaneous Notes* Telephone Encounter - Jorje Nagel LPN - 11/18/2023 11:25 AM EDT Attempted to contact patient to follow up after procedure. Left a brief message asking patient to return call if they have any questions or concerns. Jorje Nagel LPN documented in this encounterBarney Children'S Medical Center08-12-2024 Nurse Note* Rom Cano LPN - 11/16/2023 [...] ambulatory method. Patient left in good condition. [facility]08-[facility] Nurse Note* Rom Cano LPN - 11/16/2023 [...] s procedure was performed in an [facility] Procedure room. Pause completed at each [...] obtain another set of vitals. Time Out: 104 Confirmed patient name, date of , procedure site, laterality, and allergies Procedure Start: 1043 Procedure End: 105 * Mago Downing LPN - 11/16/2023 9:58 AM EDT Rn Staff's Name: Javed Sawyer Are you on a [...] to receive one? n documented in this encounterBarney Children'S Medical Center08-12-2024 Instructions* Patient Instructions* Rom Cano LPN - 11/16/2023 10:41 AM EDT PROCEDURE DISCHARGE INSTRUCTIONS 11/16/2023 Mari Lopez 1940 Physician: Roque Delgado MD [...] emergency care and why. documented in this encounterBarney Children'S Medical Center08-12-2024 Nurse Note* Amada Velasco LPN - 11/16/2023 10:22 AM EDT Procedure to be performed: Unilateral Right SUPRASCAPULAR RADIOFREQUENCY ABLATION Patient was wheeled on stretcher from pre op bay to procedure room and assisted onto the procedure tablePatient s procedure was performed in an [facility] Procedure room. Pause completed at each [...] procedure site, laterality, and allergies Procedure Start: 1044 Procedure End: 1054 [facility]08-12-2024 NoteHNO ID: [id number] Author: ROQUE DELGADO MD Service: ? Author Type: Physician Type: Progress Notes Filed: 11/16/2023 11:10 Note Text: [facility] Date: 11/16/2023 Patient name: Mari Lopez Physician [...] or double vision) Respiratory: Negative (No Cough, Nldsptcrg-wh-drprho, Dyspnea on exertion, wheezing) Cardiovascular: Negative (No [...] CONDYLEANDPLATU MEDIALANDLAT COMPARTMENTS Comment: bilateral total knee s([place]) 10/24/04 : ARTHRP KNE CONDYLEANDPLATU MEDIALANDLAT COMPARTMENTS Comment: bilateral total knee revisions No date: DELIVERY ONLY Comment: , low cervical No date: CHOLECYSTECTOMY 11/17/2017: COLONOSCOPY FLX DX W/COLLJ SPEC WHEN PFRMD Comment: Colonoscopy 02/17/07: DEBRIDEMENT SUBCUTANEOUS TISSUE 20 SQ CM/< Comment: LEFT LEG [id number]: DEBRIDEMENT SUBCUTANEOUS TISSUE 20 SQ CM/< Comment: LEFT LEG [id number]: DEBRIDEMENT SUBCUTANEOUS TISSUE 20 SQ CM/< Comment: LEFT LEG [id number]: DEBRIDEMENT SUBCUTANEOUS TISSUE 20 SQ CM/< Comment: LEFT LEG [id number]: DEBRIDEMENT SUBCUTANEOUS TISSUE 20 SQ CM/< Comment: [...] 75 mg tablet Take (more content not included)...[facility] History of Present illness Narrative* Roque Delgado MD - 11/16/2023 10:13 AM EDT [facility] Date: 11/16/2023 Patient name: Mari Lopez Physician [...] or double vision) Respiratory: Negative (No Cough, Mengajlps-mn-liafoo, Dyspnea on exertion, wheezing) Cardiovascular: Negative (No [...] and thrombophlebitis of femoral vein (deep) (superficial) ([facility]) No date: Unspecified sleep apnea PAST SURGICAL HISTORY 04/2004,05/11: ANESTHESIA HERNIA REPAIR LOWER ABDOMEN NOS Comment: gortex put in on 05/11 then taken out06/08 1990: ARTHRP KNE CONDYLE&PLATU MEDIAL&LAT COMPARTMENTS Comment: bilateral total knee s([place]) 10/24/04 : ARTHRP KNE CONDYLE&PLATU MEDIAL&LAT COMPARTMENTS Comment: bilateral total knee revisions No date: DELIVERY ONLY Comment: , low cervical No date: CHOLECYSTECTOMY 11/17/2017: COLONOSCOPY FLX DX W/COLLJ SPEC WHEN PFRMD Comment: Colonoscopy 02/17/07: DEBRIDEMENT SUBCUTANEOUS TISSUE 20 SQ CM/< Comment: LEFT LEG [id number]: DEBRIDEMENT SUBCUTANEOUS TISSUE 20 SQ CM/< Comment: LEFT LEG [id number]: DEBRIDEMENT SUBCUTANEOUS TISSUE 20 SQ CM/< Comment: LEFT LEG [id number]: DEBRIDEMENT SUBCUTANEOUS TISSUE 20 SQ CM/< Comment: LEFT LEG [id number]: DEBRIDEMENT SUBCUTANEOUS TISSUE 20 SQ CM/< Comment: [...] mg 24 hr tablet Take by mouth. Hcbedhiclma-Ibysfgpof-Qrh C-Mn (GLUCOSAMINE CHONDROITIN MAXSTR) 500-400 mg cap Take 1 capsule by mouth three times daily. COMPOUNDED PRESCRIPTION Stair lift DAILY-LUISITO tablet TAKE 1 TABLET BY MOUTH ONCE DAILY. wifglwj-hrhezxcnq-sbnnqhp D3 (CALCIUM 500+D) 500 mg(1,250mg) -200 unit [...] appropriate Assessment and Plan: As noted above [place] protocol documentation / Pre-Procedure Checklist: Consent: Obtained [...] instructions was offered to the patient. Roque HODGSONA [facility] * Mago Downing LPN - 11/16/2023 10:06 [...] patient is not nervous/anxious. documented in this encounterBarney Children'S Medical Center08-12-2024 NoteHNO ID: [id number] Author: MAGO DOWNING LPN Service: ? Author [...] and suicidal ideas. The patient is not nervous/anxious.[facility] 11-16-[facility] Nurse Note* Mago Downing LPN - 11/16/2023 9:58 AM EDT Rn Staff's Name: Javed Sawyer Are you on a [...] are you scheduled to receive one? n [facility]08-05-2024 Instructions* Patient Instructions* Miryam Orozco APRN.CNP - 11/09/2023 9:32 AM EDT Hold amlodipine/norvasc 5mg Monitor blood pressure, goal 130/80 or less Continue to take current medications Get repeat labs completed, prior to next office visit Keep scheduled appointments with specialists Monitor left lower leg, call the office if you notice any redness or skin is hot to touch documented in this encounterBarney Children'S Medical Center08-05-2024 History of Present illness Narrative* Miryam Orozco APRN.CNP - 11/09/2023 9:20 AM EDT [...] Was hospitalized recently due to fecal impaction, [facility]. Doing well since discharge. Taking Miralax [...] CONDYLE&PLATU MEDIAL&LAT COMPARTMENTS Comment: bilateral total knee s([place]) 10/24/04 : ARTHRP KNE CONDYLE&PLATU MEDIAL&LAT COMPARTMENTS Comment: bilateral total knee revisions No date: DELIVERY ONLY Comment: , low cervical No date: CHOLECYSTECTOMY 11/17/2017: COLONOSCOPY FLX DX W/COLLJ SPEC WHEN PFRMD Comment: Colonoscopy 02/17/07: DEBRIDEMENT SUBCUTANEOUS TISSUE 20 SQ CM/< Comment: LEFT LEG [id number]: DEBRIDEMENT SUBCUTANEOUS TISSUE 20 SQ CM/< Comment: LEFT LEG [id number]: DEBRIDEMENT SUBCUTANEOUS TISSUE 20 SQ CM/< Comment: LEFT LEG [id number]: DEBRIDEMENT SUBCUTANEOUS TISSUE 20 SQ CM/< Comment: LEFT LEG [id number]: DEBRIDEMENT SUBCUTANEOUS TISSUE 20 SQ CM/< Comment: [...] mg 24 hr tablet Take by mouth. Ykeowesjarj-Nhdlleknd-Fyp C-Mn (GLUCOSAMINE CHONDROITIN MAXSTR) 500-400 mg cap Take 1 capsule by mouth three times daily. COMPOUNDED PRESCRIPTION Stair lift DAILY-LUISITO tablet TAKE 1 TABLET BY MOUTH ONCE DAILY. bmspsnb-lvoskkkho-nfpbppu D3 (CALCIUM 500+D) 500 mg(1,250mg) -200 unit [...] APRN.CNP This note was partially generated using IMedExchange recognition system. Note was reviewed for accuracy. There may be minor misspellings or grammar miscues with Pickie voice recognition. documented in this encounterBarney Children'S Medical Center08-05-2024 NoteHNO ID: [id number] Author: MIRYAM OROZCO APRN.CNP Service: ? Author [...] Was hospitalized recently due to fecal impaction, [facility]. Doing well since discharge. Taking Miralax [...] and thrombophlebitis of femoral vein (deep) (superficial) ([facility]) No date: Unspecified sleep apnea PAST SURGICAL HISTORY 04/2004,05/11: ANESTHESIA HERNIA REPAIR LOWER ABDOMEN NOS Comment: gortex put in on 05/11 then taken out06/08 1991: ARTHRP TOMMY CONDYLEANDPLATU MEDIALANDLAT COMPARTMENTS Comment: bilateral total knee s([place]) 10/24/04 : ARTHRP TOMMY CONDYLEANDPLATU MEDIALANDLAT COMPARTMENTS Comment: bilateral total knee revisions No date: DELIVERY ONLY Comment: , low cervical No date: CHOLECYSTECTOMY 11/17/2017: COLONOSCOPY FLX DX W/COLLJ SPEC WHEN PFRMD Comment: Colonoscopy 02/17/07: DEBRIDEMENT SUBCUTANEOUS TISSUE 20 SQ CM/< Comment: LEFT LEG [id number]: DEBRIDEMENT SUBCUTANEOUS TISSUE 20 SQ CM/< Comment: LEFT LEG [id number]: DEBRIDEMENT SUBCUTANEOUS TISSUE 20 SQ CM/< Comment: LEFT LEG [id number]: DEBRIDEMENT SUBCUTANEOUS TISSUE 20 SQ CM/< Comment: LEFT LEG [id number]: DEBRIDEMENT SUBCUTANEOUS TISSUE 20 SQ CM/< Comment: [...] 1,000 mg by mouth (more content not included)...[facility]07-24-2024 Telephone encounter Note* Telephone Encounter - [...] No 9. Does this procedure require a emergency medical technician/driver? Yes If yes, has patient been notified that a emergency medical technician/driver is needed and must be present at [...] dose of the COVID vaccine.) Gonzalo Holland [facility]07-24-2024 Miscellaneous Notes* Telephone Encounter - Gonzalo Holland [...] No 9. Does this procedure require a emergency medical technician/driver? Yes If yes, has patient been notified that a emergency medical technician/driver is needed and must be present at [...] COVID vaccine.) Gonzalo Holland documented in this encounterBarney Children'S [facility] Center07-23-2024 Telephone encounter Note * Telephone Encounter - [...] other than patient: n/a Best contact number: [phone] Thank you, Francine De Souza October 27, 2023 4:09 PM [facility]07-23-2024 Miscellaneous Notes* Telephone Encounter - Sofía Crowe - 10/27/2023 4:19 PM EDT ----- Message from Francine Nolvia sent at 10/27/2023 4:09 PM EDT ----- [...] other than patient: n/a Best contact number: [phone] Thank you, Francine Nolvia October 27, 2023 4:09 PM documented in this encounterBarney Children'S [facility] Center06-24-2024 Telephone encounter Note * Telephone Encounter - Lizy Capone MD - 09/28/2023 1:29 PM EDT OK to refill as ordered Lizy Capone MD [facility]06-24-2024 Miscellaneous Notes* Telephone Encounter - Lizy Capone [...] Thank you. Kayla Castro. documented in this encounterBarney Children'S Medical Center06-24-2024 Telephone encounter Note * Telephone Encounter - [...] 01/28/2024 Please advise. Thank you. Kayla Castro. [facility]06-17-2024 Telephone encounter Note* Telephone Encounter - Miryam [...] was identified. 09/21/2023 by Miryam Orozco APRN.CNP [facility]06-17-2024 Miscellaneous Notes* Telephone Encounter - Miryam Orozco [...] Thank you. Quynh Sexton. documented in this encounterBarney Children'S Medical Center06-17-2024 Telephone encounter Note * Telephone Encounter - [...] 01/28/2024 Please advise. Thank you. Quynh Sexton. [facility]05-23-2024 Telephone encounter Note* Telephone Encounter - Sofía Crowe - 08/27/2023 3:02 PM EDT ----- Message from Aaliyah Hoffman sent at 08/27/2023 2:59 PM EDT ----- Regarding: Spine/Cwjz-Jro-Ljteuvfwt for Shoulder Patient: Mari Lopez Date of : 1940 Primary Care Provider: Lizy Capone MD Patient has been identified by name and Date of (Y/N): y Patient: Mari Lopez Date of : 1940 Provider for this encounter: Lizy Capone MD Reason for the call/escalation: Patient is wanting to do R shoulder injection with delgado Was Patient [facility] (Y/N): n/a Did Patient Agree (Y/N): n/a Was An Attempt Made To Transfer The Patient To The Office (Y/N): n/a Were You Able To Reach Someone At The Office (Y/N): n/a If Yes - Patient Was Transferred To (Caregivers Name): n/a If No - Which [facility] Leadership Computer Systems Design Analyst Did You Speak With Regarding This Patient: n/a Was an appointment scheduled (Y/N): n Reason patient was requesting visit (RFV/signs and symptoms/diagnosis) : injection Person calling if other than patient: n/a Return call to if other than patient: n/a Best contact number: [phone] Thank you, Aaliyah Hoffman August 27, 2023 2:59 PM [facility]05-23-2024 Miscellaneous Notes* Telephone Encounter - Sofía Crowe - 08/27/2023 3:02 PM EDT ----- Message from Aaliyah Hoffman sent at 08/27/2023 2:59 PM EDT ----- Regarding: Spine/Mjwp-Wcr-Wcqqriyem for Shoulder Patient: Mari Lopez Date of : 1940 Primary Care Provider: Lizy Capone MD Patient has been identified by name and Date of (Y/N): y Patient: Mari Lopez Date of : 1940 Provider for this encounter: Lizy Capone MD Reason for the call/escalation: Patient is wanting to do R shoulder injection with delgado Was Patient [facility] (Y/N): n/a Did Patient Agree (Y/N): n/a Was An Attempt Made To Transfer The Patient To The Office (Y/N): n/a Were You Able To Reach Someone At The Office (Y/N): n/a If Yes - Patient Was Transferred To (Caregivers Name): n/a If No - Which [facility] Leadership Computer Systems Design Analyst Did You Speak With Regarding This Patient: n/a Was an appointment scheduled (Y/N): n Reason patient was requesting visit (RFV/signs and symptoms/diagnosis) : injection Person calling if other than patient: n/a Return call to if other than patient: n/a Best contact number: [phone] Thank you, Aaliyah Hoffman August 27, 2023 2:59 PM documented in this encounterBarney Children'S Medical Center05-10-2024 Instructions* Patient Instructions* Keyana Greenberg PA-C - 08/14/2023 9:49 AM EDT Activity as tolerated Use Ice and/or heat as tolerated as needed documented in this encounterBarney Children'S Medical Center05-10-2024 NoteHNO ID: [id number] Author: KEYANA GREENBERG PA-C Service: ? Author Type: Physician Drill Hand Type: Progress Notes Filed: 08/14/2023 09:58 Note [...] or double vision) Respiratory: Negative (No Cough, Jonrbhugl-mm-wycwsq, Dyspnea on exertion, wheezing) Cardiovascular: Negative (No [...] Suprascapular Nerve under fluoroscopic guidance RIGHT-SIDED ? Rn Staff Needed: Nerve Blocks - YES (Exception: Occipital [...] ([place]) Pain Management [facility] 08-14-2023 History of Present illness Narrative* [...] or double vision) Respiratory: Negative (No Cough, Tgtibcdvt-uc-tsagoy, Dyspnea on exertion, wheezing) Cardiovascular: Negative (No [...] - Suprascapular Nerve under fluoroscopic guidance RIGHT-SIDED Rn Staff Needed: Nerve Blocks - YES (Exception: Occipital [...] ([place]) Pain Management [facility] documented in this encounterBarney Children'S Medical Center04-17-2024 Instructions* Patient Instructions* Miryam Orozco APRN.CNP - 07/22/2023 1:01 PM EDT Get repeat lab in 3 months to check kidney function Get repeat fasting labs in 6 months prior to next office visit. Continue to take all medication as prescribed Keep scheduled appointments with specialists. Follow up in 6 months or sooner as needed. documented in this encounterBarney Children'S Medical Center04-17-2024 History of Present illness Narrative* Miryam Orozco APRN.SAGGER MAKER - 07/22/2023 12:40 PM EDT This is a 83 year old female who presents today with: Patient presents with: Follow Up: 3 month follow up HISTORY OF PRESENT ILLNESS: Mari Lopez is a 83 year old female. Patient presents with: Follow Up: 3 month follow up 3 month follow up Was hospitalized recently due to fecal impaction, [facility]. Doing well since discharge. Taking Miralax [...] daily. CKD4: Following with Nephrology, Dr. Acosta [facility], switched to Dr. Gilmore. HTN: Taking [...] feels better. FAX LAB RESULTS TO DR. LOZA PAST MEDICAL HISTORY: PAST MEDICAL HISTORY Diagnosis [...] CONDYLE&PLATU MEDIAL&LAT COMPARTMENTS 1990 bilateral total knee s([place]) ARTHRP KNE CONDYLE&PLATU MEDIAL&LAT COMPARTMENTS 10/24/04 bilateral total knee revisions DELIVERY ONLY , low cervical CHOLECYSTECTOMY COLONOSCOPY FLX DX W/COLLJ SPEC WHEN PFRMD 11/17/2017 Colonoscopy DEBRIDEMENT SUBCUTANEOUS TISSUE 20 SQ CM/< 02/17/07 LEFT LEG DEBRIDEMENT SUBCUTANEOUS TISSUE 20 SQ CM/< [id number] LEFT LEG DEBRIDEMENT SUBCUTANEOUS TISSUE 20 SQ CM/< [id number] LEFT LEG DEBRIDEMENT SUBCUTANEOUS TISSUE 20 SQ CM/< [id number] LEFT LEG DEBRIDEMENT SUBCUTANEOUS TISSUE 20 SQ CM/< [id number] LEFT LEG DEBRIDEMENT SUBCUTANEOUS TISSUE 20 SQ [...] mg 24 hr tablet Take by mouth. Olaagvecglg-Rwaxifjuq-Mnj C-Mn (GLUCOSAMINE CHONDROITIN MAXSTR) 500-400 mg cap Take 1 capsule by mouth three times daily. COMPOUNDED PRESCRIPTION Stair lift DAILY-LUISITO tablet TAKE 1 TABLET BY MOUTH ONCE DAILY. oacxiln-tplvlelhn-mwcljxy D3 (CALCIUM 500+D) 500 mg(1,250mg) -200 unit [...] Gait normal. Sensation grossly intact. Latest Ref [facility] 07/16/2023 Protein, Total 6.3 - 8.0 g/dL [...] - Lab results will be faxed to miter sawyer. - COMPREHENSIVE METABOLIC PANEL - COMPREHENSIVE METABOLIC [...] discussed and patient voices understanding. Miryam Orozco APRN.SAGGER MAKER This note was partially generated using Pickie voice recognition system. Note was reviewed for accuracy. There may be minor misspellings or grammar miscues with Pickie voice recognition. documented in this encounterBarney Children'S Medical Center04-10-2024 Nurse Note* Sheila Carlson LPN - 07/15/2023 [...] s procedure was performed in an [facility] Procedure room. Pause completed at each [...] Velasco LPN - 07/15/2023 8:36 AM EDT Rn Staff's Name: javed sawyer Are you on a [...] to receive one? n documented in this encounterBarney Children'S Medical Center04-10-2024 NoteHNO ID: [id number] Author: ROQUE DELGADO MD Service: ? Author Type: Physician Type: Progress Notes Filed: 07/15/2023 09:52 Note Text: [facility] Date: 07/15/2023 Patient name: Mari Lopez Physician [...] or double vision) Respiratory: Negative (No Cough, Jjyesmrek-lb-uhfwvd, Dyspnea on exertion, wheezing) Cardiovascular: Negative (No [...] CONDYLEANDPLATU MEDIALANDLAT COMPARTMENTS 1990 bilateral total knee s([place]) ARTHRP KNE CONDYLEANDPLATU MEDIALANDLAT COMPARTMENTS 10/24/04 bilateral total knee revisions DELIVERY ONLY , low cervical CHOLECYSTECTOMY COLONOSCOPY FLX DX W/COLLJ SPEC WHEN PFRMD 11/17/2017 Colonoscopy DEBRIDEMENT SUBCUTANEOUS TISSUE 20 SQ CM/< 02/17/07 LEFT LEG DEBRIDEMENT SUBCUTANEOUS TISSUE 20 SQ CM/< [id number] LEFT LEG DEBRIDEMENT SUBCUTANEOUS TISSUE 20 SQ CM/< [id number] LEFT LEG DEBRIDEMENT SUBCUTANEOUS TISSUE 20 SQ CM/< [id number] LEFT LEG DEBRIDEMENT SUBCUTANEOUS TISSUE 20 SQ CM/< [id number] LEFT LEG DEBRIDEMENT SUBCUTANEOUS TISSUE 20 SQ [...] mg 24 hr tablet Take by mouth. Semywpvildt-Nsyhbffxw-Mkn C-Mn (GLUCOSAMINE CHONDROITIN MAXSTR) 500-400 mg cap Take 1 capsule by mouth three times daily. COMPOUNDED PRESCRIPTI (more content not included)...[facility] 07-15-2023 History of Present illness Narrative* Roque Delgado MD - 07/15/2023 8:49 AM EDT [facility] Date: 07/15/2023 Patient name: Mari Lopez Physician [...] or double vision) Respiratory: Negative (No Cough, Kflhdsemb-mj-ljisyf, Dyspnea on exertion, wheezing) Cardiovascular: Negative (No [...] CONDYLE&PLATU MEDIAL&LAT COMPARTMENTS 1990 bilateral total knee s([place]) ARTHRP KNE CONDYLE&PLATU MEDIAL&LAT COMPARTMENTS 10/24/04 bilateral total knee revisions DELIVERY ONLY , low cervical CHOLECYSTECTOMY COLONOSCOPY FLX DX W/COLLJ SPEC WHEN PFRMD 11/17/2017 Colonoscopy DEBRIDEMENT SUBCUTANEOUS TISSUE 20 SQ CM/< 02/17/07 LEFT LEG DEBRIDEMENT SUBCUTANEOUS TISSUE 20 SQ CM/< [id number] LEFT LEG DEBRIDEMENT SUBCUTANEOUS TISSUE 20 SQ CM/< [id number] LEFT LEG DEBRIDEMENT SUBCUTANEOUS TISSUE 20 SQ CM/< [id number] LEFT LEG DEBRIDEMENT SUBCUTANEOUS TISSUE 20 SQ CM/< [id number] LEFT LEG DEBRIDEMENT SUBCUTANEOUS TISSUE 20 SQ [...] mg 24 hr tablet Take by mouth. Wujwkzsffby-Mslllnflo-Itx C-Mn (GLUCOSAMINE CHONDROITIN MAXSTR) 500-400 mg cap Take 1 capsule by mouth three times daily. COMPOUNDED PRESCRIPTION Stair lift DAILY-LUISITO tablet TAKE 1 TABLET BY MOUTH ONCE DAILY. xhfvufq-yhsfirwjo-ejoqxfm D3 (CALCIUM 500+D) 500 mg(1,250mg) -200 unit [...] appropriate Assessment and Plan: As noted above [place] protocol documentation / Pre-Procedure Checklist: Consent: Obtained [...] instructions was offered to the patient. Roque HODGSONA [facility] * Amada Velasco LPN - 07/15/2023 8:39 [...] patient is not nervous/anxious. documented in this encounterBarney [facility]04-10-2024 Instructions* Patient Instructions* Sheila Carlson LPN - [...] emergency care and why. documented in this encounterBarney Children'S Medical Center04-10-2024 NoteHNO ID: [id number] Author: AMADA VELASCO LPN Service: ? Author [...] and suicidal ideas. The patient is not nervous/anxious.[facility]03-25-2024 Miscellaneous Notes* Telephone Encounter - Lizy Capone [...] call in. Shruthi Cole documented in this encounterBarney Children'S Medical Center03-18-2024 Miscellaneous Notes* Telephone Encounter - Mulugeta Jennings APRN.CNP - 06/22/2023 10:16 AM EDT The following approved medication requests have been transmitted electronically. Requested Prescriptions Pending Prescriptions Disp Refills furosemide (LASIX) 40 mg tablet [Pharmacy Med Name: FUROSEMIDE 40 MG TABLET] 90 tablet 1 Sig: take 1 tablet by mouth every day Mulugeta Jennings APRN.CNP * Telephone Encounter - Alfred Casanova LPN - 06/22/2023 10:04 AM EDT [...] you. Alfred Casanova LPN. documented in this encounterBarney Children'S Medical Center03-12-2024 Miscellaneous Notes* Telephone Encounter - Samuel Maza MA - 06/16/2023 2:44 PM EDT Patient notified. Samuel Maza MA * Telephone Encounter - Roque Delgado MD - 06/16/2023 2:30 PM EDT Refill for Flexeril approved and sent to patient's preferred pharmacy. Roque Delgado III, MD, DENNIS documented in this encounterBarney Children'S [facility] Center03-05-2024 Discharge summary Author Ralph Haynes [facility] June 09, 2023 8:24am Note Date/Time June 09, 2023 8:20 am [facility] Medical Records Department [address] [place] [id number] Discharge Summary 06/09/23 0820 MR#: [id number] Acct: [id number] Name: MARI LOPEZ Rep #:[id number] : 1940 82 From: Ralph Haynes MD PCP: BROOKLYN Aguillon Status:ADM I N Location: [place] [address] Providers Date of Admission: 06/08/23 Date of [...] 50 mg PO DAILY 02/09/18 glucosamine 500 qr-iflynruqb-zsgoqsqn comp 400 mg-D3 667 unit-C-Mn cap 1 cap PO TID 10/17/19 hydrocortisone-pramoxine 2.5 %-1 % (4g) rectal cream 1 applic SD BID 10/17/19 zolpidem 10 mg tablet 10 [...] (Auto) 42.7 L, Lymph % (Auto) 39.0, [place] % (Auto) 8.9, Eos % (Auto) 8.5 [...] tablet 50 mg PO DAILY glucosamine 500 ma-yuqgodwkh-iciqyhtx comp 400 mg-D3 667 unit-C-Mn cap 500-400-667 [...] Self Care Charges/Coding Visit Charges Inpatient E&M: 53327 Disch Hosp >30min 06/09/23 0824 <Electronically signed by Ralph Haynes MD> Cosigner Signature (if applicable): CC: BROOKLYN Orozco; Dr. Ralph Haynes MD~ Signed [facility] Work Phone: 1(720) 203-711703-05-2024 Progress note Author Ralph Haynes [facility] June 09, 2023 8:24am Note Date/Time June 09, 2023 7:46 am [facility] Medical Records Department [address] [place] [address] Progress Note - Hospitalist 06/09/23 0746 MR#: [id number] Acct: [id number] Name: MARI LOPEZ Rep #:[id number] : 1940 82 From: Ralph Haynes MD PCP: Miryam Orozco NP-Angel Status:ADM I N Location: MS3 [id number] Reason for Visit Reason for Visit: Diagnoses [...] (Auto) 42.7 L, Lymph % (Auto) 39.0, [place] % (Auto) 8.9, Eos % (Auto) 8.5 [...] Cosigner Signature (if applicable): CC: ~ Signed [facility] Work Phone: 1(875) 816-233003-04-2024 Progress note Author Ralph Haynes [facility] June 08, 2023 8:46am Note Date/Time June 08, 2023 8:43 am [facility] Medical Records Department [address] [place] [address] Progress Note - Hospitalist 06/08/23 0838 MR#: [id number] Acct: [id number] Name: MARI LOPEZ Rep #:[id number] : 1940 82 From: Ralph Haynes MD PCP: Miryam Orozco COOKER MECHANICMarcoC Status:ADM I N Location: [place] [address] Reason for Visit Reason for Visit: Diagnoses [...] 74.9 H, Lymph % (Auto) 14.2 L, [place] % (Auto) 5.8, Eos % (Auto) 3.9, [...] (Auto) 69.9, Lymph % (Auto) 18.6 L, [place] % (Auto) 6.7, Eos % (Auto) 3.8, [...] documentation,50 Minutes Charges/Coding Visit Charges Inpatient E&M: 71229 Subs Hosp L3 06/08/23 0846 <Electronically signed by Ralph Haynes MD> Cosigner Signature (if applicable): CC: ~ Signed [facility] Work Phone: 1(535) 380-793603-04-2024 History and physical note Author Ralph Smith [facility] June 08, 2023 4:54am Note Date/Time June 07, 2023 11:4 1pm [facility] Medical Records Department [address] [place] [address] H&P Exam - Hospitalist 06/07/23 2334 MR#: [id number] Acct: [id number] Name: MARI LOPEZ Rep #:[id number] : 1940 82 From: Ralph Wei DO PCP: BROOKLYN Aguillon Status:ADM I N Location: DC3 [id number] HPI - General General Date of Admission: [...] osteoarthritis; s/p bilateral TKR who presents to [facility] ER complaining of abdominal pain and constipation. [...] expected to be greater than 48 hours. [facility] Medical History (HFpEF) heart failure with preserved [...] 02/09/18 [History Last Taken Unknown] glucosamine 500 vp-hwmgivjxm-umtizfra comp 400 mg-D3 667 unit-C-Mn cap 1 cap PO TID 10/17/19 [History Last Taken Unknown] hydrocortisone-pramoxine 2.5 %-1 % (4g) rectal cream 1 applic SD BID 10/17/19 [History Last Taken Unknown] zolpidem [...] 74.9 H, Lymph % (Auto) 14.2 L, [place] % (Auto) 5.8, Eos % (Auto) 3.9, [...] Jae Carty MD at 23:06 EST , Assessment & Plan Assessment/Plan (1) Constipation: [...] 55 minutes. Charges/Coding Visit Charges Inpatient E&M: 59338 Init Hosp L2 06/08/23 1362 <Electronically signed by Ralph Wheeler DO> Cosigner Signature (if applicable): CC: BROOKLYN Orozco; Dr. Ralph Wheeler DO~ Signed [facility] Work Phone: 1(411) 392-982303-04-2024 Discharge summary Author Judson Toney [facility] June 07, 2023 11:43pm Note Date/Time June 07, 2023 7:27 pm [facility] Medical Records Department [address] [place] [address] Emergency Department Summary 06/07/23 MR#: [id number] Acct: [id number] Name: MARI LOPEZ Rep #:[id number] : 1940 82 From: Weston BELLAMY PCP: [...] throughout the day. No history of obstruction. [facility] <MIA Hodge - Last Filed: 06/07/23 21:37> [facility] Medical History (HFpEF) heart failure with preserved [...] 02/09/18 [History Last Taken Unknown] glucosamine 500 za-gxbxnwncv-qepggkcn comp 400 mg-D3 667 unit-C-Mn cap 1 cap PO TID 10/17/19 [History Last Taken Unknown] hydrocortisone-pramoxine 2.5 %-1 % (4g) rectal cream 1 applic SD BID 10/17/19 [History Last Taken Unknown] zolpidem [...] <MIA Hodge - Last Filed: 06/07/23 21:37> [facility] MDM Narrative Medical decision making narrative: Differential: [...] 74.9 H Lymph % (Auto) 14.2 L [place] % (Auto) 5.8 Eos % (Auto) 3.9 [...] Toney, DO - Last Filed: 06/07/23 23:43> [facility] Narrative Medical decision making narrative: Differential: Constipation, [...] constipation we will admit the patient to [facility] as a full admit. Discussed with Dr. [...] management plan. This note was generated with Pickie dictation software. It may contain incorrectwords, spelling, [...] 74.9 H Lymph % (Auto) 14.2 L [place] % (Auto) 5.8 Eos % (Auto) 3.9 [...] tablet 50 mg PO DAILY glucosamine 500 lj-drkcaceuj-vqdmdnxs comp 400 mg-D3 667 unit-C-Mn cap 500-400-667 [...] your Primary Care Provider. Call [facility] ([phone]) or report to the closest Emergency Room. Call 911 if necessary. 06/07/232136 <Electronically signed by Weston BELLAMY> Cosigner Signature (if applicable): 06/07/233 <Electronically signed by Judson Toney DO> CC: BROOKLYN Orozco ~ Signed [facility] Work Phone: 1(578) 595-609803-03-2024 Discharge summary Author Judson Toney [facility] June 07, 2023 11:43pm Note Date/Time June 07, 2023 7:27 pm [facility] Medical Records Department [address] [place] [address] Emergency Department Summary 06/07/23 MR#: [id number] Acct: [id number] Name: MARI LOPEZ Rep #:[id number] : 1940 82 From: Weston BELLAMY PCP: [...] 02/09/18 [History Last Taken Unknown] glucosamine 500 ia-rwbyipozp-mlbtdxrt comp 400 mg-D3 667 unit-C-Mn cap 1 cap PO TID 10/17/19 [History Last Taken Unknown] hydrocortisone-pramoxine 2.5 %-1 % (4g) rectal cream 1 applic SD BID 10/17/19 [History Last Taken Unknown] zolpidem [...] <MIA Hodge - Last Filed: 06/07/23 21:37> [facility] Narrative Medical decision making narrative: Differential: Constipation, [...] 74.9 H Lymph % (Auto) 14.2 L [place] % (Auto) 5.8 Eos % (Auto) 3.9 [...] Toney, DO - Last Filed: 06/07/23 23:43> [facility] MDM Narrative Medical decision making narrative: Differential: [...] constipation we will admit the patient to [facility] as a full admit. Discussed with Dr. [...] management plan. This note was generated with Pickie dictation software. It may contain incorrectwords, spelling, [...] 74.9 H Lymph % (Auto) 14.2 L [place] % (Auto) 5.8 Eos % (Auto) 3.9 [...] tablet 50 mg PO DAILY glucosamine 500 ur-vybtqfcil-jprkadyl comp 400 mg-D3 667 unit-C-Mn cap 500-400-667 [...] your Primary Care Provider. Call [facility] ([phone]) or report to the closest Emergency Room. Call 911 if necessary. 06/07/232136 <Electronically signed by Weston BELLAMY> Cosigner Signature (if applicable): 06/07/23 2343 <Electronically signed by Judson Toney DO> CC: COOKER MECHANICRonald Orozco ~ Signed [facility] Work Phone: 1(853) 554-350202-29-2024 Miscellaneous Notes* Telephone Encounter - Lora Valles LPN - 06/04/2023 1:40 PM EST Spoke with patient and updated her. Lora Valles LPN * Telephone Encounter - Rebekah Bobo APRN.CJ - 06/04/2023 1:31 PM EST oarrs was checked- no medication discrepancy or aberrations noted Xanax sent Rebekah Bobo APRN.SAGGER MAKER * Telephone Encounter - Jennifer De Leon - 06/04/2023 1:21 PM EST Patient would like a prescription for xanax called into pharmacy to take for RFA. Instructed patient to picking tech and bring to appointment as it must be taken under the supervision of our clinical staff. Also instructed patient to arrive 45 minutes early to appointment and that emergency medical technician/driver must stay for the entirety of the [...] Yes 9. Does this procedure require a emergency medical technician/driver? Yes If yes, has patient been notified that a emergency medical technician/driver is needed and must be present at [...] vaccine.) Jennifer De Leon documented in this encounterBarney Children'S [facility] Center02-27-2024 History of Present illness Narrative* Rebekah Bobo APRN.SAGGER MAKER - 06/02/2023 10:15 AM EST VIRTUAL VISIT PROGRESS NOTE This is a virtual visit using Audio Only Visit. It required patient-provider interaction for the medical decision making as documented below. I have communicated my name and active licensure. The patient's identity and physical location wereverified at the time of this visit. Either the patient or their legal credit and collections representative has been informed of the risks [...] and thrombophlebitis of femoral vein (deep) (superficial) ([facility]) Unspecified sleep apnea PAST SURGICAL HISTORY Procedure Laterality Date ANESTHESIA HERNIA REPAIR LOWER ABDOMEN NOS 04/2004,05/11 gortex put in on 05/11 then taken out06/08 ARTHRP KNE CONDYLE&PLATU MEDIAL&LAT COMPARTMENTS 1990 bilateral total knee s([place]) ARTHRP KNE CONDYLE&PLATU MEDIAL&LAT COMPARTMENTS 10/24/04 bilateral total knee revisions DELIVERY ONLY , low cervical CHOLECYSTECTOMY COLONOSCOPY FLX DX W/COLLJ SPEC WHEN PFRMD 11/17/2017 Colonoscopy DEBRIDEMENT SUBCUTANEOUS TISSUE 20 SQ CM/< 02/17/07 LEFT LEG DEBRIDEMENT SUBCUTANEOUS TISSUE 20 SQ CM/< [id number] LEFT LEG DEBRIDEMENT SUBCUTANEOUS TISSUE 20 SQ CM/< [id number] LEFT LEG DEBRIDEMENT SUBCUTANEOUS TISSUE 20 SQ CM/< [id number] LEFT LEG DEBRIDEMENT SUBCUTANEOUS TISSUE 20 SQ CM/< [id number] LEFT LEG DEBRIDEMENT SUBCUTANEOUS TISSUE 20 SQ [...] mg 24 hr tablet Take by mouth. Wrmxfslhfxv-Tqskaoihq-Wks C-Mn (GLUCOSAMINE CHONDROITIN MAXSTR) 500-400 mg cap Take 1 capsule by mouth three times daily. COMPOUNDED PRESCRIPTION Stair lift DAILY-LUISITO tablet TAKE 1 TABLET BY MOUTH ONCE DAILY. lsiukry-junvqcoyy-rlwfmmj D3 (CALCIUM 500+D) 500 mg(1,250mg) -200 unit [...] which included preparing to see the patient, tktk-gr-lfdd patient care, completing clinical documentation, and ordering medications, tests, orprocedures Rebekah Bobo APRN.CNP I have communicated my name and active licensure. The patient's identity and physical location wereverified at the time of this visit. Either the patient or their legal credit and collections representative has been informed of the risks and benefits of -- and alternatives to -- treatment through a remote evaluation andconsents to proceed with the evaluation remotely. documented in this encounterBarney Children'S [facility] Center02-27-2024 NoteHNO ID: [id number] Author: REBEKAH BOBO APRN.CNP Service: ? Author [...] visit. Either the patient or their legal credit and collections representative has been informed of the risks [...] CONDYLEANDPLATU MEDIALANDLAT COMPARTMENTS 1990 bilateral total knee s([place]) ARTHRP KNE CONDYLEANDPLATU MEDIALANDLAT COMPARTMENTS 10/24/04 bilateral total knee revisions DELIVERY ONLY , low cervical CHOLECYSTECTOMY COLONOSCOPY FLX DX W/COLLJ SPEC WHEN PFRMD 11/17/2017 Colonoscopy DEBRIDEMENT SUBCUTANEOUS TISSUE 20 SQ CM/< 02/17/07 LEFT LEG DEBRIDEMENT SUBCUTANEOUS TISSUE 20 SQ CM/< [id number] LEFT LEG DEBRIDEMENT SUBCUTANEOUS TISSUE 20 SQ CM/< [id number] LEFT LEG DEBRIDEMENT SUBCUTANEOUS TISSUE 20 SQ CM/< [id number] LEFT LEG DEBRIDEMENT SUBCUTANEOUS TISSUE 20 SQ CM/< [id number] LEFT LEG DEBRIDEMENT SUBCUTANEOUS TISSUE 20 SQ [...] mg 24 hr tablet Take by mouth. Msmgaajgcmd-Kftrfrnoy-Urb C-Mn (GLUCOSAMINE CHONDROITIN MAXSTR) 500-400 mg cap Take 1 capsule by mouth three times daily. COMPOUNDED PRESCRIPTION Stair lift DAILY-LUISITO tablet TAKE 1 TABLET BY MOUTH ONCE DAILY. zdlcgty-dgmgfvqgl-rcahqpw D3 (CALCIUM 500+D) 500 mg(1,250m (more content not included)...[facility]02-[facility] Instructions* Patient Instructions* Rebekah Bobo APRN.CNP - 06/02/2023 7:01 AM EST Ice and heat as tolerated Activity as tolerated documented in this encounterBarney Children'S Medical Center02-14-2024 Miscellaneous Notes* Telephone Encounter - Jorje Nagel LPN - 05/20/2023 1:34 PM EST Spoke with patient following up from procedure. Patient states they are doing well, no questions orconcerns at this time. Jorje Nagel LPN documented in this encounterBarney Children'S Medical Center02-12-2024 Instructions* Patient Instructions* Carolann Marx LPN - [...] emergency care and why. documented in this encounterBarney Children'S Medical Center02-12-2024 NoteHNO ID: [id number] Author: CAROLANN MARX LPN Service: ? Author [...] via ambulatory method. Patient left in good condition.[facility]02-[facility] History of Present illness Narrative* Carolann Marx [...] 1:14 PM EST [facility] Patient name: Mari Lopez Date of : 1940 Today's date: 05/18/2023 Purpose: Ultrasound-guided injection Computing Tutor: Roque Delgado M.D., M.B.A Diagnosis: (M19.011, M19.012) [...] or double vision) Respiratory: Negative (No Cough, Opkiiyesk-vr-rofjny, Dyspnea on exertion, wheezing) Cardiovascular: Negative (No [...] and thrombophlebitis of femoral vein (deep) (superficial) ([facility]) Unspecified sleep apnea PAST SURGICAL HISTORY Procedure Laterality Date ANESTHESIA HERNIA REPAIR LOWER ABDOMEN NOS 04/2004,05/11 gortex put in on 05/11 then taken out06/08 ARTHRP KNE CONDYLE&PLATU MEDIAL&LAT COMPARTMENTS 1990 bilateral total knee s([place]) ARTHRP KNE CONDYLE&PLATU MEDIAL&LAT COMPARTMENTS 10/24/04 bilateral total knee revisions DELIVERY ONLY , low cervical CHOLECYSTECTOMY COLONOSCOPY FLX DX W/COLLJ SPEC WHEN PFRMD 11/17/2017 Colonoscopy DEBRIDEMENT SUBCUTANEOUS TISSUE 20 SQ CM/< 02/17/07 LEFT LEG DEBRIDEMENT SUBCUTANEOUS TISSUE 20 SQ CM/< [id number] LEFT LEG DEBRIDEMENT SUBCUTANEOUS TISSUE 20 SQ CM/< [id number] LEFT LEG DEBRIDEMENT SUBCUTANEOUS TISSUE 20 SQ CM/< [id number] LEFT LEG DEBRIDEMENT SUBCUTANEOUS TISSUE 20 SQ CM/< [id number] LEFT LEG DEBRIDEMENT SUBCUTANEOUS TISSUE 20 SQ [...] mg 24 hr tablet Take by mouth. Ajratczafyh-Dmxanklyu-Ipp C-Mn (GLUCOSAMINE CHONDROITIN MAXSTR) 500-400 mg cap Take 1 capsule by mouth three times daily. COMPOUNDED PRESCRIPTION Stair lift DAILY-LUISITO tablet TAKE 1 TABLET BY MOUTH ONCE DAILY. wklmfqg-mcznwzcss-rhiccud D3 (CALCIUM 500+D) 500 mg(1,250mg) -200 unit [...] appropriate Assessment and Plan: As noted above [place] protocol documentation / Pre-Procedure Checklist: Consent: Obtained [...] DENNIS [facility] * Rom Cano LPN - 05/18/2023 1:04 [...] patient is not nervous/anxious. documented in this encounterBarney Children'S Medical Center02-12-2024 NoteHNO ID: [id number] Author: ROQUE DELGADO MD Service: ? Author Type: Physician Type: Progress Notes Filed: 05/18/2023 13:48 Note Text: [facility] Patient name: Mari Lopez Date of : 1940 Today's date: 05/18/2023 Purpose: Ultrasound-guided injection Computing Tutor: Roque Delgado M.D., M.B.A Diagnosis: (M19.011, M19.012) [...] or double vision) Respiratory: Negative (No Cough, Zvzomynli-xt-tmsrio, Dyspnea on exertion, wheezing) Cardiovascular: Negative (No [...] and thrombophlebitis of femoral vein (deep) (superficial) ([facility]) Unspecified sleep apnea PAST SURGICAL HISTORY Procedure Laterality Date ANESTHESIA HERNIA REPAIR LOWER ABDOMEN NOS 04/2004,05/11 gortex put in on 05/11 then taken out06/08 ARTHRP KNE CONDYLEANDPLATU MEDIALANDLAT COMPARTMENTS 1990 bilateral total knee s([place]) ARTHRP KNE CONDYLEANDPLATU MEDIALANDLAT COMPARTMENTS 10/24/04 bilateral total knee revisions DELIVERY ONLY , low cervical CHOLECYSTECTOMY COLONOSCOPY FLX DX W/COLLJ SPEC WHEN PFRMD 11/17/2017 Colonoscopy DEBRIDEMENT SUBCUTANEOUS TISSUE 20 SQ CM/< 02/17/07 LEFT LEG DEBRIDEMENT SUBCUTANEOUS TISSUE 20 SQ CM/< [id number] LEFT LEG DEBRIDEMENT SUBCUTANEOUS TISSUE 20 SQ CM/< [id number] LEFT LEG DEBRIDEMENT SUBCUTANEOUS TISSUE 20 SQ CM/< [id number] LEFT LEG DEBRIDEMENT SUBCUTANEOUS TISSUE 20 SQ CM/< [id number] LEFT LEG DEBRIDEMENT SUBCUTANEOUS TISSUE 20 SQ [...] mg 24 hr (more content not included)... [facility] Note* Amada Velasco LPN - 05/18/2023 1:08 PM EST Procedure to be performed: Unilateral Left SUPRASCAPULAR NERVE BLOCK Patient was wheeled on stretcher from pre op bay to procedure room and assisted onto the procedure tablePatient s procedure was performed in an [facility] Procedure room. Pause completed at each [...] Cano LPN - 05/18/2023 1:02 PM EST Rn Staff's Name: ALEX Are you on a blood [...] to receive one? N documented in this encounterBarney Children'S Medical Center02-12-2024 NoteHNO ID: [id number] Author: ROM CANO LPN Service: ? Author [...] and suicidal ideas. The patient is not nervous/anxious.[facility] 04-16-2023 NoteHNO ID: [id number] Author: KALEIGH RODNEY MA Service: ? Author Type: Inspector Brake Lining Type: Progress Notes Filed: 04/16/2023 08:43 Note [...] and suicidal ideas. The patient is not nervous/anxious.[facility] 03-31-2023 History of Present illness Narrative* Latia Weston RT(R) - 03/31/2023 11:10 AM EST Radiology [...] PERIPHERAL IV DATA: Not applicable SIGNED BY: VÍCTOR Enriquez) March 31, 2023 11:25 AM documented in this encounterBarney Children'S Medical Center12-26-2023 NoteHNO ID: [id number] Author: ROQUE DELGADO MD Service: ? Author Type: Physician Type: Progress Notes Filed: 04/16/2023 08:43 Note Text: [facility] Today's Date: 04/16/2023 Last visit: 01/15/2023 03/02/2023 [...] current dose Flexeril 10mg TID PRN Functional Worship: No changes-continue current regimen Additional Studies: X-ray [...] - Initial HPI (Obtained by Avis Marrufo APRN.SAGGER MAKER ). From 03/2022 - She previously inquired [...] chief complaint(s)): Neuropathics: Ne (more content not included)...[facility] 03-[facility] History of Present illness Narrative* Rebekah Bobo, NANCI.SAGGER MAKER - 03/02/2023 3:45 PM EST VIRTUAL VISIT PROGRESS NOTE This is a virtual visit using Audio Only Visit. It required patient-provider interaction for the medical decision making as documented below. I have communicated my name and active licensure. The patient's identity and physical location wereverified at the time of this visit. Either the patient or their legal credit and collections representative has been informed of the risks [...] CONDYLE&PLATU MEDIAL&LAT COMPARTMENTS 1990 bilateral total knee s([place]) ARTHRP KNE CONDYLE&PLATU MEDIAL&LAT COMPARTMENTS 10/24/04 bilateral total knee revisions DELIVERY ONLY , low cervical CHOLECYSTECTOMY COLONOSCOPY FLX DX W/COLLJ SPEC WHEN PFRMD 11/17/2017 Colonoscopy DEBRIDEMENT SUBCUTANEOUS TISSUE 20 SQ CM/< 02/17/07 LEFT LEG DEBRIDEMENT SUBCUTANEOUS TISSUE 20 SQ CM/< [id number] LEFT LEG DEBRIDEMENT SUBCUTANEOUS TISSUE 20 SQ CM/< [id number] LEFT LEG DEBRIDEMENT SUBCUTANEOUS TISSUE 20 SQ CM/< [id number] LEFT LEG DEBRIDEMENT SUBCUTANEOUS TISSUE 20 SQ CM/< [id number] LEFT LEG DEBRIDEMENT SUBCUTANEOUS TISSUE 20 SQ [...] mg 24 hr tablet Take by mouth. Yaphivkvxim-Ruxybloda-Ops C-Mn (GLUCOSAMINE CHONDROITIN MAXSTR) 500-400 mg cap Take 1 capsule by mouth three times daily. COMPOUNDED PRESCRIPTION Stair lift DAILY-LUISITO tablet TAKE 1 TABLET BY MOUTH ONCE DAILY. wglnaws-ipydgezmd-niazakb D3 (CALCIUM 500+D) 500 mg(1,250mg) -200 unit [...] which included preparing to see the patient, dtzb-kp-eoge patient care, and completing clinical documentation Rebekah Bobo APRN.CJ I have communicated my name and active licensure. The patient's identity and physical location wereverified at the time of this visit. Either the patient or their legal credit and collections representative has been informed of the risks and benefits of -- and alternatives to -- treatment through a remote evaluation andconsents to proceed with the evaluation remotely. documented in this encounterBarney Children'S [facility] Center11-27-2023 NoteHNO ID: [id number] Author: Rebekah Bobo APRN.CJ Service: ? Author Type: Nurse Practitioner [...] visit. Either the patient or their legal credit and collections representative has been informed of the risks [...] and thrombophlebitis of femoral vein (deep) (superficial) ([facility]) Unspecified sleep apnea PAST SURGICAL HISTORY Procedure Laterality Date ANESTHESIA HERNIA REPAIR LOWER ABDOMEN NOS 04/2004,05/11 gortex put in on 05/11 then taken out06/08 ARTHRP KNE CONDYLEANDPLATU MEDIALANDLAT COMPARTMENTS 1990 bilateral total knee s([place]) ARTHRP KNE CONDYLEANDPLATU MEDIALANDLAT COMPARTMENTS 10/24/04 bilateral total knee revisions DELIVERY ONLY , low cervical CHOLECYSTECTOMY COLONOSCOPY FLX DX W/COLLJ SPEC WHEN PFRMD 11/17/2017 Colonoscopy DEBRIDEMENT SUBCUTANEOUS TISSUE 20 SQ CM/< 02/17/07 LEFT LEG DEBRIDEMENT SUBCUTANEOUS TISSUE 20 SQ CM/< [id number] LEFT LEG DEBRIDEMENT SUBCUTANEOUS TISSUE 20 SQ CM/< [id number] LEFT LEG DEBRIDEMENT SUBCUTANEOUS TISSUE 20 SQ CM/< [id number] LEFT LEG DEBRIDEMENT SUBCUTANEOUS TISSUE 20 SQ CM/< [id number] LEFT LEG DEBRIDEMENT SUBCUTANEOUS TISSUE 20 SQ [...] mg 24 hr tablet Take by mouth. Cfalshnkcoh-Zeuevcshy-Zyq C-Mn (GLUCOSAMINE CHONDROITIN MAXSTR) 500-400 mg cap Take 1 capsule by mouth three times daily. COMPOUNDED PRESCRIPTION Stair lift DAILY-LUISITO tablet TAKE 1 TABLET BY MOUTH ONCE DAILY. snmifdw-yoljewgiq-hfownmu D3 (CALCIUM 500+D) 500 mg(1,250mg) -200 unit per tablet Take 1 tablet by mouth twice daily with meals. vitamin b complex (B COMPLETE) tab Take 1 tablet by mouth once daily. hydrocortisone (ANUSOL-HC) 2.5 % rectal cream 1 application by RECTAL route twice daily. (more content not included)...[facility] 03-02-[facility] Instructions* Patient Instructions* Rebekah Bobo APRN.CNP - 03/02/2023 6:59 AM EST Ice and heat as tolerated Activity as tolerated documented in this encounterBarney Children'S Medical Center11-13-2023 Nurse Note* Rom Cano LPN - 02/16/2023 [...] s procedure was performed in an [facility] Procedure room. Pause completed at each [...] Start: 1149 Procedure End: 1157 * Octavio Robbins LPN - 02/16/2023 11:04 AM EST Rn Staff's Name: N/A Are you on a blood [...] to receive one? n documented in this encounterBarney Children'S Medical Center11-13-2023 Instructions* Patient Instructions* Rom Cano LPN - 02/16/2023 11:49 AM EST PROCEDURE DISCHARGE INSTRUCTIONS 02/16/2023 Mari Gerry Lopez 1940 Physician: Roque Delgado MD Procedure: Other: [...] emergency care and why. documented in this encounterBarney Children'S Medical Center11-13-2023 NoteHNO ID: [id number] Author: Octavio Robbins LPN Service: ? Author [...] and suicidal ideas. The patient is not nervous/anxious.[facility]11[facility]13[facility] History of Present illness Narrative* Octavio Robbins [...] 10:45 AM EST [facility] Date: 02/16/2023 Patient name: Mari Lopez Physician [...] or double vision) Respiratory: Negative (No Cough, Cieolqtwv-fw-rztolq, Dyspnea on exertion, wheezing) Cardiovascular: Negative (No [...] CONDYLE&PLATU MEDIAL&LAT COMPARTMENTS 1990 bilateral total knee s([place]) ARTHRP KNE CONDYLE&PLATU MEDIAL&LAT COMPARTMENTS 10/24/04 bilateral total knee revisions DELIVERY ONLY , low cervical CHOLECYSTECTOMY COLONOSCOPY FLX DX W/COLLJ SPEC WHEN PFRMD 11/17/2017 Colonoscopy DEBRIDEMENT SUBCUTANEOUS TISSUE 20 SQ CM/< 02/17/07 LEFT LEG DEBRIDEMENT SUBCUTANEOUS TISSUE 20 SQ CM/< [id number] LEFT LEG DEBRIDEMENT SUBCUTANEOUS TISSUE 20 SQ CM/< [id number] LEFT LEG DEBRIDEMENT SUBCUTANEOUS TISSUE 20 SQ CM/< [id number] LEFT LEG DEBRIDEMENT SUBCUTANEOUS TISSUE 20 SQ CM/< [id number] LEFT LEG DEBRIDEMENT SUBCUTANEOUS TISSUE 20 SQ [...] mg 24 hr tablet Take by mouth. Xoebmrcolfg-Wmhlffbwv-Qwa C-Mn (GLUCOSAMINE CHONDROITIN MAXSTR) 500-400 mg cap Take 1 capsule by mouth three times daily. COMPOUNDED PRESCRIPTION Stair lift DAILY-LUISITO tablet TAKE 1 TABLET BY MOUTH ONCE DAILY. wcsgnfw-xeyhhptet-cbmfans D3 (CALCIUM 500+D) 500 mg(1,250mg) -200 unit [...] appropriate Assessment and Plan: As noted above [place] protocol documentation / Pre-Procedure Checklist: Consent: Obtained [...] DENNIS Pain Management [facility] documented in this encounterBarney Children'S Medical Center11-13-2023 NoteHNO ID: [id number] Author: Roque Delgado MD Service: ? Author Type: Physician Type: Progress Notes Filed: 02/16/2023 12:55 PM Note Text: [facility] Date: 02/16/2023 Patient name: Mari Lopez Physician [...] or double vision) Respiratory: Negative (No Cough, Qxxrqegjj-cu-nlxfmg, Dyspnea on exertion, wheezing) Cardiovascular: Negative (No [...] and thrombophlebitis of femoral vein (deep) (superficial) ([facility]) Unspecified sleep apnea PAST SURGICAL HISTORY Procedure Laterality Date ANESTHESIA HERNIA REPAIR LOWER ABDOMEN NOS 04/2004,05/11 gortex put in on 05/11 then taken out06/08 ARTHRP KNE CONDYLEANDPLATU MEDIALANDLAT COMPARTMENTS 1990 bilateral total knee s([place]) ARTHRP KNE CONDYLEANDPLATU MEDIALANDLAT COMPARTMENTS 10/24/04 bilateral total knee revisions DELIVERY ONLY , low cervical CHOLECYSTECTOMY COLONOSCOPY FLX DX W/COLLJ SPEC WHEN PFRMD 11/17/2017 Colonoscopy DEBRIDEMENT SUBCUTANEOUS TISSUE 20 SQ CM/< 02/17/07 LEFT LEG DEBRIDEMENT SUBCUTANEOUS TISSUE 20 SQ CM/< [id number] LEFT LEG DEBRIDEMENT SUBCUTANEOUS TISSUE 20 SQ CM/< [id number] LEFT LEG DEBRIDEMENT SUBCUTANEOUS TISSUE 20 SQ CM/< [id number] LEFT LEG DEBRIDEMENT SUBCUTANEOUS TISSUE 20 SQ CM/< [id number] LEFT LEG DEBRIDEMENT SUBCUTANEOUS TISSUE 20 SQ [...] Take by mouth. Glucosamine-Chondroit (more content not included)...[facility] 01-15-2023 History of Present illness Narrative* Allison Garcia, RT(R) - 01/15/2023 9:20 AM EDT Radiology [...] 15, 2023 11:24 AM documented in this encounterBarney Children'S Medical Center10-12-2023 Miscellaneous Notes* Telephone Encounter - Jennifer De [...] No 9. Does this procedure require a emergency medical technician/driver? No If yes, has patient been notified that a emergency medical technician/driver is needed and must be present at [...] vaccine.) Jennifer De Leon documented in this encounterBarney Children'S Medical Center10-12-2023 NoteHNO ID: [id number] Author: Kerrie Guthrie LPN Service: ? Author [...] and suicidal ideas. The patient is not nervous/anxious.[facility]10-12-[facility] History of Present illness Narrative* Kerrie Guthrie [...] not included. [facility] General Name: Mari Lopez : 1940 Purpose: [...] bony destructive process. Lumbar: There are five ivm-ybz-nozjyuw lumbar vertebrae. No acute fracture or subluxations [...] right, 80' left) Special Tests: painful (positive) Juaquin-ThompsonGuanako's LUMBAR MUSCULOSKELETAL/NEURO EXAM Inspection: - Symmetric without [...] report bilateral flank pain. She states her annual campaign manager, PCP and miter sawyer advised her pain is coming from her [...] current dose Flexeril 10mg TID PRN Functional Worship: No changes-continue current regimen Additional Studies: X-ray [...] MD Pain Management [facility] documented in this encounterBarney Children'S [facility] Center10-11-2023 NoteHNO ID: [id number] Author: Roque Delgado MD Service: ? Author Type: Physician Type: Progress Notes Filed: 01/15/2023 8:58 AM Note Text: [facility] Name: Mari Lopez : 1940 Purpose: 3-month [...] foraminal narrowing. Otherwise, the (more content not included)...[facility] Miscellaneous Notes* Telephone Encounter - Miryam Orozco APRN.CNP - 12/24/2022 9:34 AM EDT Face sheet, consult, and last OV notes faxed to Dr. Gilmore's office in [place]. Miryam Orozco APRN.SAGGER MAKER * Telephone Encounter - Minna Blue LPN [...] like to establish care with a new miter sawyer I would recommend [facility], Dr. Gilmore. Please let me know what she prefers. If she would like we can recheck kidney function in 2 to 4 weeks after stopping Lasix. Thank you. Miryam Orozco APRN.CJ documented in this encounterBarney Children'S Medical Center09-18-2023 Instructions* Patient Instructions* Miryam Orozco APRN.CNP - 12/22/2022 9:15 AM EDT Get labs completed Stay well hydrated. Continue to take all medication as prescribed. Continue at home exercises at home for shoulder pain, any worsening symptoms contact the office. Keep up coming appointment Dr. Delgado. Elevate the legs when possible. Follow up in 3 months or sooner pending test results. documented in this encounterBarney Children'S Medical Center09-18-2023 History of Present illness Narrative* Miryam Orozco APRN.CNP - 12/22/2022 9:00 AM EDT This is [...] Lasix daily, following with Nephrology, Dr. Acosta [facility]. Had decreased GFR in , Following [...] CONDYLE&PLATU MEDIAL&LAT COMPARTMENTS 1990 bilateral total knee s([place]) ARTHRP KNE CONDYLE&PLATU MEDIAL&LAT COMPARTMENTS 10/24/04 bilateral total knee revisions DELIVERY ONLY , low cervical CHOLECYSTECTOMY COLONOSCOPY FLX DX W/COLLJ SPEC WHEN PFRMD 11/17/2017 Colonoscopy DEBRIDEMENT SUBCUTANEOUS TISSUE 20 SQ CM/< 02/17/07 LEFT LEG DEBRIDEMENT SUBCUTANEOUS TISSUE 20 SQ CM/< [id number] LEFT LEG DEBRIDEMENT SUBCUTANEOUS TISSUE 20 SQ CM/< [id number] LEFT LEG DEBRIDEMENT SUBCUTANEOUS TISSUE 20 SQ CM/< [id number] LEFT LEG DEBRIDEMENT SUBCUTANEOUS TISSUE 20 SQ CM/< [id number] LEFT LEG DEBRIDEMENT SUBCUTANEOUS TISSUE 20 SQ [...] Take 40 mg by mouth once daily.) Prnrdakqifk-Cyjpdyffw-Xae C-Mn (GLUCOSAMINE CHONDROITIN MAXSTR) 500-400 mg cap Take 1 capsule by mouth three times daily. COMPOUNDED PRESCRIPTION Stair lift DAILY-LUISITO tablet TAKE 1 TABLET BY MOUTH ONCE DAILY. wdklfjc-pcbxpcmkw-sqztude D3 (CALCIUM 500+D) 500 mg(1,250mg) -200 unit [...] APRN.CJ This note was partially generated using Pickie voice recognition system. Note was reviewed for accuracy. There may be minor misspellings or grammar miscues with Pickie voice recognition. documented in this encounterBarney Children'S Medical Center08-31-2023 Miscellaneous Notes* Telephone Encounter - Jud Mattson [...] APPOINTMENT 01/15/23 PLEASE ADVISE documented in this encounterBarney Children'S Medical Center07-13-2023 Miscellaneous Notes* Addendum Note - Celena Maria LPN - 10/16/2022 10:30 AM EDTAddended by: CELENA MARIA on: 10/16/2022 10:30 AM Modules accepted: Orders documented in this encounterBarney Children'S Medical Center07-13-2023 History of Present illness Narrative* Kerrie Guthrie [...] not included. [facility] Name: Mari Lopez : 1940 Purpose: [...] bony destructive process. Lumbar: There are five fpl-beb-nbopnfd lumbar vertebrae. No acute fracture or subluxations [...] report bilateral flank pain. She states her annual campaign manager, PCP and miter sawyer advised her pain is coming from her [...] incident The patient will be followed by credit and collections representative from the company Additional tests, treatments, [...] current dose Flexeril 10mg TID PRN Functional Worship: No changes-continue current regimen Additional Studies: None [...] MD Pain Management [facility] documented in this encounterBarney Children'S [facility] Center07-05-2023 Miscellaneous Notes* Telephone Encounter - Miryam Orozco APRN.CNP - 10/08/2022 2:47 PM EDT The following [...] suspiciousactivity was identified. 10/08/2022 by Miryam Orozco APRN.CNP * Telephone Encounter - Quynh Carlie - [...] notify patient. Quynh Sexton documented in this encounterBarney Children'S Medical Center06-29-2023 History of Present illness Narrative* Celia Crowell [...] AM EDT [facility] Date: 10/02/2022 Name: Mari Lopez : 1940 Purpose: SPR lead(s) Removal Interval History: Mari Lopez is an established patient at [facility], who presents today for removal of SPR [...] incident The patient will be followed by credit and collections representative from the company Additional tests, treatments, or referrals: none Follow-up: For right lead removal in 2 weeks (10/16) Roque Delgado MD, DENNIS Pain Management [facility] * Roque Delgado MD - 10/01/2022 11:35 AM EDT Opened in error documented in this encounterBarney Children'S Medical Center05-10-2023 Nurse Note* Rom Cano LPN - 08/13/2022 [...] Time stop:1505 SPRINT endura PNS System Lot- [id number] 2023-11-05 [employer] System EXTERNAL PULSE GENERATOR Lot- [id number] 2023-11-05 [employer] System MICROLEAD 2.0 WITH [employer] INTRODUCER Lot- [id number] 2024-06-10 [employer] PNS System CABLES SINGLE-LEAD PROCEDURE Lot- [id number] 2024-05-08 Nurse : Amada Velasco LPN Date: [...] Patient s procedure was performed in [facility] procedure room. Pressure was applied to patient s injection site(s) and bleeding was minimal. Patient had no complaint of shortness of breath, dizziness, headache, numbness, tingling, weakness or complications from procedure. Patient was assisted fromthe procedure table onto the stretcher and wheeled into a post op bay. Patient was advised a [facility] [employer] [employer] would be in for reprogramming. Patient was advised a clinician will be toobtain another set of vitals. Present in the room is: ROQUE DELGADO MD- Physician Amada Velasco - REGISTERED NURSE FETAL Shereen Ferreira/ Thierno Lorenzo - [employer]mith AMADA SAUL - X-Ray Tech Comments: None Tolerated procedure well: Yes * Jose Roberto Jimenes - 08/13/2022 1:51 PM EDT Rn Staff's Name: Cayla Are you on a blood [...] to receive one? no documented in this encounterBarney Children'S [facility] Center05-10-2023 History of Present illness Narrative* Jose Roberto [...] CONDYLE&PLATU MEDIAL&LAT COMPARTMENTS 1990 bilateral total knee s([place]) ARTHRP KNE CONDYLE&PLATU MEDIAL&LAT COMPARTMENTS 10/24/04 bilateral total knee revisions DELIVERY ONLY , low cervical CHOLECYSTECTOMY COLONOSCOPY FLX DX W/COLLJ SPEC WHEN PFRMD 11/17/2017 Colonoscopy DEBRIDEMENT SUBCUTANEOUS TISSUE 20 SQ CM/< 02/17/07 LEFT LEG DEBRIDEMENT SUBCUTANEOUS TISSUE 20 SQ CM/< [id number] LEFT LEG DEBRIDEMENT SUBCUTANEOUS TISSUE 20 SQ CM/< [id number] LEFT LEG DEBRIDEMENT SUBCUTANEOUS TISSUE 20 SQ CM/< [id number] LEFT LEG DEBRIDEMENT SUBCUTANEOUS TISSUE 20 SQ CM/< [id number] LEFT LEG DEBRIDEMENT SUBCUTANEOUS TISSUE 20 SQ [...] daily. Take on empty stomach. For thyroid. Cidqzshohyn-Lktyqpogf-Nyb C-Mn (GLUCOSAMINE CHONDROITIN MAXSTR) 500-400 mg cap Take 1 capsule by mouth three times daily. lisinopril-hydroCHLOROthiazide (PRINZIDE,ZESTORETIC) 10-12.5 mg per tablet Take 1 tablet by mouth once daily. COMPOUNDED PRESCRIPTION Stair lift DAILY-LUISITO tablet TAKE 1 TABLET BY MOUTH ONCE DAILY. jdbeccc-syrzxlfft-lcjzekg D3 (CALCIUM 500+D) 500 mg(1,250mg) -200 unit [...] 7:58 AM EDT [facility] Date: 08/13/2022 Patient name: Mari IGLESIASN: [id number] Physician performing procedure: Roque Delgado M.D., M.B.A. [...] or double vision) Respiratory: Negative (No Cough, Mhoylaazz-gd-btubty, Dyspnea on exertion, wheezing) Cardiovascular: Negative (No [...] and thrombophlebitis of femoral vein (deep) (superficial) ([facility]) Unspecified sleep apnea PAST SURGICAL HISTORY Procedure Laterality Date ANESTHESIA HERNIA REPAIR LOWER ABDOMEN NOS 04/2004,05/11 gortex put in on 05/11 then taken out06/08 ARTHRP KNE CONDYLE&PLATU MEDIAL&LAT COMPARTMENTS 1990 bilateral total knee s([place]) ARTHRP KNE CONDYLE&PLATU MEDIAL&LAT COMPARTMENTS 10/24/04 bilateral total knee revisions DELIVERY ONLY , low cervical CHOLECYSTECTOMY COLONOSCOPY FLX DX W/COLLJ SPEC WHEN PFRMD 11/17/2017 Colonoscopy DEBRIDEMENT SUBCUTANEOUS TISSUE 20 SQ CM/< 02/17/07 LEFT LEG DEBRIDEMENT SUBCUTANEOUS TISSUE 20 SQ CM/< [id number] LEFT LEG DEBRIDEMENT SUBCUTANEOUS TISSUE 20 SQ CM/< [id number] LEFT LEG DEBRIDEMENT SUBCUTANEOUS TISSUE 20 SQ CM/< [id number] LEFT LEG DEBRIDEMENT SUBCUTANEOUS TISSUE 20 SQ CM/< [id number] LEFT LEG DEBRIDEMENT SUBCUTANEOUS TISSUE 20 SQ [...] daily. Take on empty stomach. For thyroid. Avjmlqwarsn-Ilstkjylx-Xyf C-Mn (GLUCOSAMINE CHONDROITIN MAXSTR) 500-400 mg cap Take 1 capsule by mouth three times daily. lisinopril-hydroCHLOROthiazide (PRINZIDE,ZESTORETIC) 10-12.5 mg per tablet Take 1 tablet by mouth once daily. COMPOUNDED PRESCRIPTION Stair lift DAILY-LUISITO tablet TAKE 1 TABLET BY MOUTH ONCE DAILY. bmtentp-ldjyorfam-njkutoy D3 (CALCIUM 500+D) 500 mg(1,250mg) -200 unit [...] appropriate Assessment and Plan: As noted above [place] protocol documentation / Pre-Procedure Checklist: Consent: Obtained [...] Test stimulation was conducted per the SPR credit and collections representative successfully. The finder needle was then [...] programming and be discharged home with their emergency medical technician/driver. The patient was instructed to monitor for [...] MBA Pain Management [facility] documented in this encounterBarney Children'S [facility] Center05-01-2023 Miscellaneous Notes* Telephone Encounter - Roque Delgado MD - 08/04/2022 1:04 PM EDT Please let Ms. Lopez know that the right foot x-ray showed no fracture. Roque Delgado III, MD, MBA documented in this encounterBarney Children'S Medical Center04-27-2023 History and physical note Author Dr. Jackson [facility] July 31, 2022 2:01pm Note Date/Time July 31, 2022 9:4 1am [facility] Medical Records Department [address] [place] [address] History & Physical Exam 07/31/22 0941 MR#: [id number] Acct: [id number] Name: MARI LOPEZ Rep #:[id number] : 1940 82 From: Maria Teresa Roy COOKER MECHANIC-C PCP: Dr. Lizy Capone MD Status:SD E SDC Location: [facility] History and Physical Date of Admission: [...] and diuretics.? She was seen by the miter sawyer and had Lasix dosage adjustments to 80 [...] results, further recommendations will be made. 07/31/22 0972 <Electronically signed by Maria Teresa HUNTC> Cosigner Signature (if applicable): 07/31/22 1401 <Electronically signed by Norberto Jackson MD> CC: COOKER MECHANIC-C Maria Teresa Olivo; Dr. Norberto Jackson MD; Dr. Lizy Capone MD~ Signed [facility] Work Phone: 1(917) 837-890504-26-2023 Nurse Note* Malena Nagel LPN - 07/30/2022 [...] start:1403 Time stop:1415 [employer] PNS System Lot-[id number] [employer] PNS System EXTERNAL PULSE GENERATOR Lot-[id number] [employer] PNS System MICROLEAD 2.0 [employer] INTRODUCER Lot-[id number] [employer] PNS System CABLES - SINGLE-LEAD PROCEDURE Lot-[id number] Nurse : Amada Velasco LPN Date: July 30, 2022 Time: 2:06 PM Physician: Roque Delgado MD Date: July 30, 2022 Time: 2:06 PM Amada Velasco LPN Pause completed at each level by provider to verify correct level and laterality placement Patient was brought into the procedure room in a wheelchair . Patient s procedure was performed in [facility] procedure room. Pressure was applied to patient s injection site(s) and bleeding was minimal. Patient had no complaint of shortness of breath, dizziness, headache, numbness, tingling, weakness or complications from procedure. Patient was assisted from the procedure table into wheelchair and wheeled back to exam room. Patient was advised a [employer] Forensic Locksmith would be in for reprogramming. Patient was advised a clinician will be to obtain another set of vitals. Present in the room is: ROQUE DELGADO MD - Physician Amada Velasco - RUDDY Ferreira - [employer] Fore[employer]mith Cordell Flynn - X-Ray Tech Comments: None Tolerated procedure well: Yes * Jose Roberto Jimenes - 07/30/2022 12:56 PM EDT Rn Staff's Name: Stephanie Are you on a blood [...] to receive one? no documented in this encounterBarney Children'S [facility] Center04-26-2023 History of Present illness Narrative* Jose Roberto [...] and thrombophlebitis of femoral vein (deep) (superficial) ([facility]) Unspecified sleep apnea PAST SURGICAL HISTORY Procedure Laterality Date ANESTHESIA HERNIA REPAIR LOWER ABDOMEN NOS 04/2004,05/11 gortex put in on 05/11 then taken out06/08 ARTHRP KNE CONDYLE&PLATU MEDIAL&LAT COMPARTMENTS 1990 bilateral total knee s([place]) ARTHRP KNE CONDYLE&PLATU MEDIAL&LAT COMPARTMENTS 10/24/04 bilateral total knee revisions DELIVERY ONLY , low cervical CHOLECYSTECTOMY COLONOSCOPY FLX DX W/COLLJ SPEC WHEN PFRMD 11/17/2017 Colonoscopy DEBRIDEMENT SUBCUTANEOUS TISSUE 20 SQ CM/< 02/17/07 LEFT LEG DEBRIDEMENT SUBCUTANEOUS TISSUE 20 SQ CM/< [id number] LEFT LEG DEBRIDEMENT SUBCUTANEOUS TISSUE 20 SQ CM/< [id number] LEFT LEG DEBRIDEMENT SUBCUTANEOUS TISSUE 20 SQ CM/< [id number] LEFT LEG DEBRIDEMENT SUBCUTANEOUS TISSUE 20 SQ CM/< [id number] LEFT LEG DEBRIDEMENT SUBCUTANEOUS TISSUE 20 SQ CM/< 11/28/07 LEFT LEG ESOPHAGOGASTRODUODENOSCOPY TRANSORAL DIAGNOSTIC 11/17/2017 EGD [...] empty stomach. For thyroid.^Disp: 90 tablet^Rfl: 3 Gyfsnounvdx-Sxdscclme-Sit C-Mn (GLUCOSAMINE CHONDROITIN MAXSTR) 500-400 mg cap^Take 1 capsule by mouth three times daily.^Disp: 90 capsule^Rfl: 11 lisinopril-hydroCHLOROthiazide (PRINZIDE,ZESTORETIC) 10-12.5 mg per tablet^Take 1 tablet by mouth once daily.^Disp: 30 tablet^Rfl: 11 (Patient not taking: Reported on 06/30/2022) COMPOUNDED PRESCRIPTION^Stair lift^Disp: 1 Device^Rfl: 0 DAILY-LUISITO tablet^TAKE 1 TABLET BY MOUTH ONCE DAILY.^Disp: 30 tablet^Rfl: 11 ufxninh-cpyjnchbp-hlovoyb D3 (CALCIUM 500+D) 500 mg(1,250mg) -200 unit [...] 7:59 AM EDT [facility] Date: 07/30/2022 Patient name: Mari Lopez Physician [...] or double vision) Respiratory: Negative (No Cough, Uwxtakrap-qs-zphmvt, Dyspnea on exertion, wheezing) Cardiovascular: Negative (No [...] and thrombophlebitis of femoral vein (deep) (superficial) ([facility]) Unspecified sleep apnea PAST SURGICAL HISTORY Procedure Laterality Date ANESTHESIA HERNIA REPAIR LOWER ABDOMEN NOS 04/2004,05/11 gortex put in on 05/11 then taken out06/08 ARTHRP KNE CONDYLE&PLATU MEDIAL&LAT COMPARTMENTS 1990 bilateral total knee s([place]) ARTHRP KNE CONDYLE&PLATU MEDIAL&LAT COMPARTMENTS 10/24/04 bilateral total knee revisions DELIVERY ONLY , low cervical CHOLECYSTECTOMY COLONOSCOPY FLX DX W/COLLJ SPEC WHEN PFRMD 11/17/2017 Colonoscopy DEBRIDEMENT SUBCUTANEOUS TISSUE 20 SQ CM/< 02/17/07 LEFT LEG DEBRIDEMENT SUBCUTANEOUS TISSUE 20 SQ CM/< [id number] LEFT LEG DEBRIDEMENT SUBCUTANEOUS TISSUE 20 SQ CM/< [id number] LEFT LEG DEBRIDEMENT SUBCUTANEOUS TISSUE 20 SQ CM/< [id number] LEFT LEG DEBRIDEMENT SUBCUTANEOUS TISSUE 20 SQ CM/< [id number] LEFT LEG DEBRIDEMENT SUBCUTANEOUS TISSUE 20 SQ [...] daily. Take on empty stomach. For thyroid. Ikgvnfqbinq-Xdrgiguyd-Vjo C-Mn (GLUCOSAMINE CHONDROITIN MAXSTR) 500-400 mg cap Take 1 capsule by mouth three times daily. lisinopril-hydroCHLOROthiazide (PRINZIDE,ZESTORETIC) 10-12.5 mg per tablet Take 1 tablet by mouth once daily. (Patient not taking: Reported on 06/30/2022) COMPOUNDED PRESCRIPTION Stair lift DAILY-LUISITO tablet TAKE 1 TABLET BY MOUTH ONCE DAILY. kxltxsv-cozjnegvi-rusckia D3 (CALCIUM 500+D) 500 mg(1,250mg) -200 unit [...] appropriate Assessment and Plan: As noted above [place] protocol documentation / Pre-Procedure Checklist: Consent: Obtained [...] Test stimulation was conducted per the SPR credit and collections representative successfully. The finder needle was then [...] programming and be discharged home with their emergency medical technician/driver. The patient was instructed to monitor for [...] MBA Pain Management [facility] documented in this encounterBarney Children'S Medical Center04-10-2023 Miscellaneous Notes* Telephone Encounter - Mulugeta Jennings APRN.CNP - 07/14/2022 12:40 PM EDT Approved. PDMP website checked and validated. All prescriptions have been APPROPRIATELY filled. No suspiciousactivity was identified. 07/14/2022 by Mulugeta Jennings APRN.CNP The following approved medication requests have been transmitted electronically. Requested Prescriptions Signed Prescriptions Disp Refills zolpidem (AMBIEN) 10 mg 30 tablet 2 Sig: Take 1 tablet by mouth at bedtime as needed for up to 90 days. Authorizing Provider: MULUGETA JENNINGS APRN.CNP * Telephone Encounter - Patricia Cole - 07/14/2022 12:16 PM EDT Patient has [...] patient. Patricia Mcqueen Pss documented in this encounterBarney Children'S Medical Center04-03-2023 History and physical note Author Dr. Jackson [facility] July 07, 2022 6:17pm Note Date/Time July 07, 2022 1:51 pm [facility] Medical Records Department [address] [place] [address] History & Physical Exam 07/07/22 1348 MR#: [id number] Acct: [id number] Name: MARI LOPEZ Rep #:[id number] : 1940 82 From: Jas Bethea NP COOKER MECHANIC-C PCP: Dr. Lizy Capone MD Status:SD E SD Location: [facility] History and Physical Date of Admission: [...] and diuretics.? She was seen by the miter sawyer and had Lasix dosageadjustments to 80 mg [...] Signs: See EMR Visit Reasons:?4 M FU Custodial Maintenance Worker Required: No Accompanied by: None Is patient [...] postponed on account of back procedure with [facility]. At this time, shewill proceed with heart catheterization and depending on results, further recommendations be made. 07/07/22 1351 <Electronically signed by Jas BARAHONA> Cosigner Signature (if applicable): 07/07/22 1817 <Electronically signed by Norberto Jackson MD> CC: COOKER MECHANIC-C Jas Bethea; Dr. Norberto Jackson MD; Dr. Lizy Capone MD~ Signed [facility] Work Phone: [phone]) 772-818503-29-2023 Nurse Note* Celia Crowell LPN - 07/02/2022 1:11 PM EDT Rn Staff's Name: Richard Are you on a blood [...] to receive one? N documented in this encounterBarney Children'S Medical Center03-29-2023 History of Present illness Narrative* Roque Delgado MD - 07/02/2022 8:29 AM EDT Procedure cancelled, patient on antibiotic for UTI. Will reschedule. Roque Delgado III, MD, DENNIS documented in this encounterBarney Children'S Medical Center03-28-2023 Miscellaneous Notes* Telephone Encounter - Esme Chi [...] will treat the bacteria appropriately. Mulugeta Jennings APRN.CNP documented in this encounterBarney Children'S Medical Center03-27-2023 Instructions* Patient Instructions* Ragini Gomes APRN.CNP - 06/30/2022 10:56 AM EDT Images from the original note were not included. INFORMATION ON URODYNAMICS (BLADDER FUNCTION TEST) Getting Ready for the Test You do not have to fast before the test. Begin to drink 24-32 ounces of fluid (water, cranberry juice, milk, herbal tea) 90 minutes prior tothe test so you arrive at the [facility] with the urge to empty your bladder. [...] your bladder when you arrive at the [facility]. Speak with a nurse if you feel you must empty your bladder. If you are taking antibiotics for a urinary tract infection (UTI) or bladder infection, notify yourphysician's office immediately. We may reschedule your bladder test. Bring a list of all prescribed and roev-wnu-vboqkvq medications you are taking. If you should need assistance due to a language barrier or medical needs/condition, please notify the flight crew scheduler when making your appointment and one will be provided for you ([phone]). If you are taking overactive bladder medications [...] bladder symptoms. These include: Alcoholic beverages Cantaloupe [place] and spicy foods Apples & apple juice Sargent fruit Chocolate Tea & Coffee (including decaffeinated) [...] is placed. Useful Internet resources Https://www.nafc.org/ https://www.niddk.nih.gov/health-information https://www.voicesforpfd.org/ Bladder Training Program for Overactive Bladder & [...] then relax for 10 seconds. Repeat these [id number] times and do this at least 4 [...] colors/dyes Tomatoes Beer Chocolate Spicy foods Wine Groves syrup Sargent juices and fruit Caffeine: Sugar Carbonated fluids [...] to take these medications. documented in this encounterBarney Children'S Medical Center03-27-2023 History of Present illness Narrative* Ragini Gomes APRN.CNP - 06/30/2022 9:30 AM EDT Female Pelvic Medicine & Reconstructive Surgery Consult CHIEF COMPLAINT: Mari Lopez is a 82 year old female who presents for consultation requested by Miryam Orozco APRN.CNP for an opinion regarding Female stress incontinence. HISTORY OF PRESENT ILLNESS: Patient presents today with exercise science internship who lives near her. 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) Quite a bit somewhat [...] CONDYLE&PLATU MEDIAL&LAT COMPARTMENTS 1990 bilateral total knee s([place]) ARTHRP KNE CONDYLE&PLATU MEDIAL&LAT COMPARTMENTS 10/24/04 bilateral total knee revisions DELIVERY ONLY , low cervical CHOLECYSTECTOMY COLONOSCOPY FLX DX W/COLLJ SPEC WHEN PFRMD 11/17/2017 Colonoscopy DEBRIDEMENT SUBCUTANEOUS TISSUE 20 SQ CM/< 02/17/07 LEFT LEG DEBRIDEMENT SUBCUTANEOUS TISSUE 20 SQ CM/< [id number] LEFT LEG DEBRIDEMENT SUBCUTANEOUS TISSUE 20 SQ CM/< [id number] LEFT LEG DEBRIDEMENT SUBCUTANEOUS TISSUE 20 SQ CM/< [id number] LEFT LEG DEBRIDEMENT SUBCUTANEOUS TISSUE 20 SQ CM/< [id number] LEFT LEG DEBRIDEMENT SUBCUTANEOUS TISSUE 20 SQ [...] daily. Take on empty stomach. For thyroid. Thvahycleru-Wvhopnmfg-Mkw C-Mn (GLUCOSAMINE CHONDROITIN MAXSTR) 500-400 mg cap Take 1 capsule by mouth three times daily. COMPOUNDED PRESCRIPTION Stair lift DAILY-LUISITO tablet TAKE 1 TABLET BY MOUTH ONCE DAILY. yhulcwv-znwsozuic-mbejpyc D3 (CALCIUM 500+D) 500 mg(1,250mg) -200 unit [...] and ROS obtained by others. Ragini Gomes APRN.SAGGER MAKER Safety Technician offered: Patient declines. OBJECTIVE: BP 135/80 Pulse [...] which included preparing to see the patient, wwvd-gk-wrrc patient care, completing clinical documentation, obtaining and/or reviewing separately obtained history, performing a medically appropriate examination, counseling and educating the pat ient/family/caregiver, and ordering medications, tests, or procedures. My final recommendations will be communicated back to the requesting physician by way of shared Medical record or letter via mail. Ragini Gomes APRN.CNP documented in this encounterBarney Children'S Medical Center03-24-2023 Miscellaneous Notes* Telephone Encounter - Josselin Baxter [...] Miryam. Mulugeta Jennings APRN.CNP documented in this encounterBarney Children'S Medical Center03-23-2023 Instructions* Patient Instructions* Miryam Orozco APRN.CNP - [...] to Dr. Hernandez, she is located in [facility], 2nd floor. Keep scheduled appointments with Dr. Acosta and Dr. Delgado Follow up in 3 months or sooner as needed. documented in this encounterBarney Children'S Medical Center03-23-2023 History of Present illness Narrative* Miryam Orozco [...] on the right side July 02 in [place]. Knee Pain: Would like a prescription for [...] and thrombophlebitis of femoral vein (deep) (superficial) ([facility]) Unspecified sleep apnea PAST SURGICAL HISTORY Procedure Laterality Date ANESTHESIA HERNIA REPAIR LOWER ABDOMEN NOS 04/2004,05/11 gortex put in on 05/11 then taken out06/08 ARTHRP KNE CONDYLE&PLATU MEDIAL&LAT COMPARTMENTS 1990 bilateral total knee s([place]) ARTHRP KNE CONDYLE&PLATU MEDIAL&LAT COMPARTMENTS 10/24/04 bilateral total knee revisions DELIVERY ONLY , low cervical CHOLECYSTECTOMY COLONOSCOPY FLX DX W/COLLJ SPEC WHEN PFRMD 11/17/2017 Colonoscopy DEBRIDEMENT SUBCUTANEOUS TISSUE 20 SQ CM/< 02/17/07 LEFT LEG DEBRIDEMENT SUBCUTANEOUS TISSUE 20 SQ CM/< [id number] LEFT LEG DEBRIDEMENT SUBCUTANEOUS TISSUE 20 SQ CM/< [id number] LEFT LEG DEBRIDEMENT SUBCUTANEOUS TISSUE 20 SQ CM/< [id number] LEFT LEG DEBRIDEMENT SUBCUTANEOUS TISSUE 20 SQ CM/< [id number] LEFT LEG DEBRIDEMENT SUBCUTANEOUS TISSUE 20 SQ [...] daily. Take on empty stomach. For thyroid. Yobplcjaply-Dlfvzkrxd-Yzf C-Mn (GLUCOSAMINE CHONDROITIN MAXSTR) 500-400 mg cap Take 1 capsule by mouth three times daily. lisinopril-hydroCHLOROthiazide (PRINZIDE,ZESTORETIC) 10-12.5 mg per tablet Take 1 tablet by mouth once daily. COMPOUNDED PRESCRIPTION Stair lift DAILY-LUISITO tablet TAKE 1 TABLET BY MOUTH ONCE DAILY. xcspiia-agywpzlio-yulokve D3 (CALCIUM 500+D) 500 mg(1,250mg) -200 unit [...] discussed and patient voices understanding. Miryam Orozco APRN.SAGGER MAKER This note was partially generated using Pickie voice recognition system. Note was reviewed for accuracy. There may be minor misspellings or grammar miscues with Pickie voice recognition. documented in this encounterBarney Children'S Medical Center03-01-2023 Miscellaneous Notes* Addendum Note - Roque Delgado [...] with Roque Delgado MD at [address], [place] [address]. Mari Lopez has been scheduled for Lead pull - right side on 09/04/22 at 9:45am, with Roque Delgado MD at [address], [place] [address]. Mari Lopez has been scheduled for SPR device placement - left side on 07/30/22 at 1pm, with Roque Delgado MD at [address], [place] [address]. Mari Lopez has been scheduled for Lead pull - left side on 10/02/22 at 9:45am, with oRque Delgado MD at [address], [place] [address]. Please call in Xanax and Antibiotics to e- [id number] [place] [address] - [address] - [phone] [phone] [facility] [address] Patient has allergies to Allergies: Aspirin Intolerance Bactrim [Sulfametho* Hives Comment:Blisters: head to toe Ibuprofen Rash Kefzol [Cefazolin S* Hives Peanut Butter [Othe* Comment:throat swelling, convulsions Sulfa (Sulfonamide * Hives, Unknown Comment:Blisters: head to toe Mailed patient pre procedure instructions and appointment reminders to patient.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 07/21/2003 08/21/2009 documented as of this encounter (statuses as of 07/18/2021) [facility] of Past illness Narrative* Problem Noted Date Resolved Date Screening for colon cancer 11/24/201607/12 Overview: Added automatically from request for surgery [id number] Pain in joint, lower leg 11/14/2008 010 MASS IN SUBCUTANEOUS TISSUE 07/21/200808/04 Non-healing surgical wound 03/16/200705/18 Other injury of other sites of trunk 01/16/2006 07/01/2007 ASA CLASS III 05/07/2005 07/12/2021 Other ventral hernia without mention of obstruction or gangrene 03/26/2004 07/01/2007 THROMBOPHLEBITIS NOS(aka DVT) 07/21/2003 PULMON EMBOLISM/INFARCT(aka EMBOLISM) 07/21/2003 08/21/2009 documented as of this encounter (statuses as of 07/26/2021) [facility] of Past illness Narrative* Problem Noted Date Resolved Date Screening for colon cancer 11/24/201607/12 Overview: Added automatically from request for surgery [id number] Pain in joint, lower leg 11/14/2008 010 MASS IN SUBCUTANEOUS TISSUE 07/21/200808/04 Non-healing surgical wound 03/16/200705/18 Other injury of other sites of trunk 01/16/2006 07/01/2007 ASA CLASS III 05/07/2005 07/12/2021 Other ventral hernia without mention of obstruction or gangrene 03/26/2004 07/01/2007 THROMBOPHLEBITIS NOS(aka DVT) 07/21/2003 PULMON EMBOLISM/INFARCT(aka EMBOLISM) 07/21/2003 08/21/2009 documented as of this encounter (statuses as of 07/26/2021) [facility] of Past illness Narrative* Problem Noted Date Resolved Date Screening for colon cancer 11/24/201607/12 Overview: Added automatically from request for surgery [id number] Pain in joint, lower leg 11/14/2008 010 MASS IN SUBCUTANEOUS TISSUE 07/21/200808/04 Non-healing surgical wound 03/16/200705/18 Other injury of other sites of trunk 01/16/2006 07/01/2007 ASA CLASS III 05/07/2005 07/12/2021 Other ventral hernia without mention of obstruction or gangrene 03/26/2004 07/01/2007 THROMBOPHLEBITIS NOS(aka DVT) 07/21/2003 PULMON EMBOLISM/INFARCT(aka EMBOLISM) 07/21/2003 08/21/2009 documented as of this encounter (statuses as of 08/08/2021) [facility] of [facility] illness Narrative* Problem Noted Date Resolved Date Screening for colon cancer 11/24/201607/12 Overview: Added automatically from request for surgery [id number] Pain in joint, lower leg 11/14/2008 010 MASS IN SUBCUTANEOUS TISSUE 07/21/200808/04 Non-healing surgical wound 03/16/200705/18 Other injury of other sites of trunk 01/16/2006 07/01/2007 ASA CLASS III 05/07/2005 07/12/2021 Other ventral hernia without mention of obstruction or gangrene 03/26/2004 07/01/2007 THROMBOPHLEBITIS NOS(aka DVT) 07/21/2003 PULMON EMBOLISM/INFARCT(aka EMBOLISM) 07/21/2003 08/21/2009 documented as of this encounter (statuses as of 09/12/2021) [facility] illness Narrative* Problem Noted Date Resolved Date Screening for colon cancer 11/24/201607/12 Overview: Added automatically from request for surgery [id number] Pain in joint, lower leg 11/14/2008 010 MASS IN SUBCUTANEOUS TISSUE 07/21/200808/04 Non-healing surgical wound 03/16/200705/18 Other injury of other sites of trunk 01/16/2006 07/01/2007 ASA CLASS III 05/07/2005 07/12/2021 Other ventral hernia without mention of obstruction or gangrene 03/26/2004 07/01/2007 THROMBOPHLEBITIS NOS(aka DVT) 07/21/2003 PULMON EMBOLISM/INFARCT(aka EMBOLISM) 07/21/2003 08/21/2009 documented as of this encounter (statuses as of 09/19/2021) [facility] Narrative* Problem Noted Date Resolved Date Screening for colon cancer 11/24/201607/12 Overview: Added automatically from request for surgery [id number] Pain in joint, lower leg 11/14/2008 010 MASS IN SUBCUTANEOUS TISSUE 07/21/200808/04 Non-healing surgical wound 03/16/200705/18 Other injury of other sites of trunk 01/16/2006 07/01/2007 ASA CLASS III 05/07/2005 07/12/2021 Other ventral hernia without mention of obstruction or gangrene 03/26/2004 07/01/2007 THROMBOPHLEBITIS NOS(aka DVT) 07/21/2003 PULMON EMBOLISM/INFARCT(aka EMBOLISM) 07/21/2003 08/21/2009 documented as of this encounter (statuses as of 09/19/2021) [facility] Narrative* Problem Noted Date Resolved Date Screening for colon cancer 11/24/201607/12 Overview: Added automatically from request for surgery [id number] Pain in joint, lower leg 11/14/2008 010 MASS IN SUBCUTANEOUS TISSUE 07/21/200808/04 Non-healing surgical wound 03/16/200705/18 Other injury of other sites of trunk 01/16/2006 07/01/2007 ASA CLASS III 05/07/2005 07/12/2021 Other ventral hernia without mention of obstruction or gangrene 03/26/2004 07/01/2007 THROMBOPHLEBITIS NOS(aka DVT) 07/21/2003 PULMON EMBOLISM/INFARCT(aka EMBOLISM) 07/21/2003 08/21/2009 documented as of this encounter (statuses as of 09/21/2021) [facility] Narrative* Problem Noted Date Resolved Date Screening for colon cancer 11/24/201607/12 Overview: Added automatically from request for surgery [id number] Pain in joint, lower leg 11/14/2008 010 MASS IN SUBCUTANEOUS TISSUE 07/21/200808/04 Non-healing surgical wound 03/16/200705/18 Other injury of other sites of trunk 01/16/2006 07/01/2007 ASA CLASS III 05/07/2005 07/12/2021 Other ventral hernia without mention of obstruction or gangrene 03/26/2004 07/01/2007 THROMBOPHLEBITIS NOS(aka DVT) 07/21/2003 PULMON EMBOLISM/INFARCT(aka EMBOLISM) 07/21/2003 08/21/2009 documented as of this encounter (statuses as of 10/01/2021) [facility] Narrative* Problem Noted Date Resolved Date Screening for colon cancer 11/24/201607/12 Overview: Added automatically from request for surgery [id number] Pain in joint, lower leg 11/14/2008 010 MASS IN SUBCUTANEOUS TISSUE 07/21/200808/04 Non-healing surgical wound 03/16/200705/18 Other injury of other sites of trunk 01/16/2006 07/01/2007 ASA CLASS III 05/07/2005 07/12/2021 Other ventral hernia without mention of obstruction or gangrene 03/26/2004 07/01/2007 THROMBOPHLEBITIS NOS(aka DVT) 07/21/2003 PULMON EMBOLISM/INFARCT(aka EMBOLISM) 07/21/2003 08/21/2009 documented as of this encounter (statuses as of 10/21/2021) [facility] Narrative* Problem Noted Date Resolved Date Screening for colon cancer 11/24/201607/12 Overview: Added automatically from request for surgery [id number] Pain in joint, lower leg 11/14/2008 010 MASS IN SUBCUTANEOUS TISSUE 07/21/200808/04 Non-healing surgical wound 03/16/200705/18 Other injury of other sites of trunk 01/16/2006 07/01/2007 ASA CLASS III 05/07/2005 07/12/2021 Other ventral hernia without mention of obstruction or gangrene 03/26/2004 07/01/2007 THROMBOPHLEBITIS NOS(aka DVT) 07/21/2003 PULMON EMBOLISM/INFARCT(aka EMBOLISM) 07/21/2003 08/21/2009 documented as of this encounter (statuses as of 10/22/2021) [facility] Narrative* Problem Noted Date Resolved Date Screening for colon cancer 11/24/201607/12 Overview: Added automatically from request for surgery [id number] Pain in joint, lower leg 11/14/2008 010 MASS IN SUBCUTANEOUS TISSUE 07/21/200808/04 Non-healing surgical wound 03/16/200705/18 Other injury of other sites of trunk 01/16/2006 07/01/2007 ASA CLASS III 05/07/2005 07/12/2021 Other ventral hernia without mention of obstruction or gangrene 03/26/2004 07/01/2007 THROMBOPHLEBITIS NOS(aka DVT) 07/21/2003 PULMON EMBOLISM/INFARCT(aka EMBOLISM) 07/21/2003 08/21/2009 documented as of this encounter (statuses as of 10/22/2021) [facility] Narrative* Problem Noted Date Resolved Date Screening for colon cancer 11/24/201607/12 Overview: Added automatically from request for surgery [id number] Pain in joint, lower leg 11/14/2008 010 MASS IN SUBCUTANEOUS TISSUE 07/21/200808/04 Non-healing surgical wound 03/16/200705/18 Other injury of other sites of trunk 01/16/2006 07/01/2007 ASA CLASS III 05/07/2005 07/12/2021 Other ventral hernia without mention of obstruction or gangrene 03/26/2004 07/01/2007 THROMBOPHLEBITIS NOS(aka DVT) 07/21/2003 PULMON EMBOLISM/INFARCT(aka EMBOLISM) 07/21/2003 08/21/2009 documented as of this encounter (statuses as of 10/24/2021) [facility] Narrative* Problem Noted Date Resolved Date Screening for colon cancer 11/24/201607/12 Overview: Added automatically from request for surgery [id number] Pain in joint, lower leg 11/14/2008 010 MASS IN SUBCUTANEOUS TISSUE 07/21/200808/04 Non-healing surgical wound 03/16/200705/18 Other injury of other sites of trunk 01/16/2006 07/01/2007 ASA CLASS III 05/07/2005 07/12/2021 Other ventral hernia without mention of obstruction or gangrene 03/26/2004 07/01/2007 THROMBOPHLEBITIS NOS(aka DVT) 07/21/2003 PULMON EMBOLISM/INFARCT(aka EMBOLISM) 07/21/2003 08/21/2009 documented as of this encounter (statuses as of 11/05/2021) [facility] Narrative* Problem Noted Date Resolved Date Screening for colon cancer 11/24/201607/12 Overview: Added automatically from request for surgery [id number] Pain in joint, lower leg 11/14/2008 010 MASS IN SUBCUTANEOUS TISSUE 07/21/200808/04 Non-healing surgical wound 03/16/200705/18 Other injury of other sites of trunk 01/16/2006 07/01/2007 ASA CLASS III 05/07/2005 07/12/2021 Other ventral hernia without mention of obstruction or gangrene 03/26/2004 07/01/2007 THROMBOPHLEBITIS NOS(aka DVT) 07/21/2003 PULMON EMBOLISM/INFARCT(aka EMBOLISM) 07/21/2003 08/21/2009 documented as of this encounter (statuses as of 11/12/2021) [facility] Narrative* Problem Noted Date Resolved Date Screening for colon cancer 11/24/201607/12 Overview: Added automatically from request for surgery [id number] Pain in joint, lower leg 11/14/2008 010 MASS IN SUBCUTANEOUS TISSUE 07/21/200808/04 Non-healing surgical wound 03/16/200705/18 Other injury of other sites of trunk 01/16/2006 07/01/2007 ASA CLASS III 05/07/2005 07/12/2021 Other ventral hernia without mention of obstruction or gangrene 03/26/2004 07/01/2007 THROMBOPHLEBITIS NOS(aka DVT) 07/21/2003 PULMON EMBOLISM/INFARCT(aka EMBOLISM) 07/21/2003 08/21/2009 documented as of this encounter (statuses as of 11/13/2021) [facility] Narrative* Problem Noted Date Resolved Date Screening for colon cancer 11/24/201607/12 Overview: Added automatically from request for surgery [id number] Pain in joint, lower leg 11/14/2008 010 MASS IN SUBCUTANEOUS TISSUE 07/21/200808/04 Non-healing surgical wound 03/16/200705/18 Other injury of other sites of trunk 01/16/2006 07/01/2007 ASA CLASS III 05/07/2005 07/12/2021 Other ventral hernia without mention of obstruction or gangrene 03/26/2004 07/01/2007 THROMBOPHLEBITIS NOS(aka DVT) 07/21/2003 PULMON EMBOLISM/INFARCT(aka EMBOLISM) 07/21/2003 08/21/2009 documented as of this encounter (statuses as of 11/22/2021) [facility] Narrative* Problem Noted Date Resolved Date Screening for colon cancer 11/24/201607/12 Overview: Added automatically from request for surgery [id number] Pain in joint, lower leg 11/14/2008 010 MASS IN SUBCUTANEOUS TISSUE 07/21/200808/04 Non-healing surgical wound 03/16/200705/18 Other injury of other sites of trunk 01/16/2006 07/01/2007 ASA CLASS III 05/07/2005 07/12/2021 Other ventral hernia without mention of obstruction or gangrene 03/26/2004 07/01/2007 THROMBOPHLEBITIS NOS(aka DVT) 07/21/2003 PULMON EMBOLISM/INFARCT(aka EMBOLISM) 07/21/2003 08/21/2009 documented as of this encounter (statuses as of 11/26/2021) [facility] Narrative* Problem Noted Date Resolved Date Screening for colon cancer 11/24/201607/12 Overview: Added automatically from request for surgery [id number] Pain in joint, lower leg 11/14/2008 010 MASS IN SUBCUTANEOUS TISSUE 07/21/200808/04 Non-healing surgical wound 03/16/200705/18 Other injury of other sites of trunk 01/16/2006 07/01/2007 ASA CLASS III 05/07/2005 07/12/2021 Other ventral hernia without mention of obstruction or gangrene 03/26/2004 07/01/2007 THROMBOPHLEBITIS NOS(aka DVT) 07/21/2003 PULMON EMBOLISM/INFARCT(aka EMBOLISM) 07/21/2003 08/21/2009 documented as of this encounter (statuses as of 12/02/2021) [facility]2017 History of Past illness Narrative* Problem Noted Date Resolved Date Screening for colon cancer 11/24/201607/12 Overview: Added automatically from request for surgery [id number] Pain in joint, lower leg 11/14/2008 010 MASS IN SUBCUTANEOUS TISSUE 07/21/200808/04 Non-healing surgical wound 03/16/200705/18 Other injury of other sites of trunk 01/16/2006 07/01/2007 ASA CLASS III 05/07/2005 07/12/2021 Other ventral hernia without mention of obstruction or gangrene 03/26/2004 07/01/2007 THROMBOPHLEBITIS NOS(aka DVT) 07/21/2003 PULMON EMBOLISM/INFARCT(aka EMBOLISM) 07/21/2003 08/21/2009 documented as of this encounter (statuses as of 12/03/2021) [facility] History of Past illness Narrative* Problem Noted Date Resolved Date Screening for colon cancer 11/24/201607/12 Overview: Added automatically from request for surgery [id number] Pain in joint, lower leg 11/14/2008 010 MASS IN SUBCUTANEOUS TISSUE 07/21/200808/04 Non-healing surgical wound 03/16/200705/18 Other injury of other sites of trunk 01/16/2006 07/01/2007 ASA CLASS III 05/07/2005 07/12/2021 Other ventral hernia without mention of obstruction or gangrene 03/26/2004 07/01/2007 THROMBOPHLEBITIS NOS(aka DVT) 07/21/2003 PULMON EMBOLISM/INFARCT(aka EMBOLISM) 07/21/2003 08/21/2009 documented as of this encounter (statuses as of 12/11/2021) [facility] History of Past illness Narrative* Problem Noted Date Resolved Date Screening for colon cancer 11/24/201607/12 Overview: Added automatically from request for surgery [id number] Pain in joint, lower leg 11/14/2008 05/18/2 010 MASS IN SUBCUTANEOUS TISSUE 07/21/200808/04 Non-healing surgical wound 03/16/200705/18 Other injury of other sites of trunk 01/16/2006 07/01/2007 ASA CLASS III 05/07/2005 07/12/2021 Other ventral hernia without mention of obstruction or gangrene 03/26/2004 07/01/2007 THROMBOPHLEBITIS NOS(aka DVT) 07/21/2003 PULMON EMBOLISM/INFARCT(aka EMBOLISM) 07/21/2003 08/21/2009 documented as of this encounter (statuses as of 12/16/2021) [facility] History of Past illness Narrative* Problem Noted Date Resolved Date Screening for colon cancer 11/24/201607/12 Overview: Added automatically from request for surgery [id number] Pain in joint, lower leg 11/14/2008 010 MASS IN SUBCUTANEOUS TISSUE 07/21/200808/04 Non-healing surgical wound 03/16/200705/18 Other injury of other sites of trunk 01/16/2006 07/01/2007 ASA CLASS III 05/07/2005 07/12/2021 Other ventral hernia without mention of obstruction or gangrene 03/26/2004 07/01/2007 THROMBOPHLEBITIS NOS(aka DVT) 07/21/2003 PULMON EMBOLISM/INFARCT(aka EMBOLISM) 07/21/2003 08/21/2009 documented as of this encounter (statuses as of 12/23/2021) [facility] History of Past illness Narrative* Problem Noted Date Resolved Date Screening for colon cancer 11/24/201607/12 Overview: Added automatically from request for surgery [id number] Pain in joint, lower leg 11/14/2008 010 MASS IN SUBCUTANEOUS TISSUE 07/21/200808/04 Non-healing surgical wound 03/16/200705/18 Other injury of other sites of trunk 01/16/2006 07/01/2007 ASA CLASS III 05/07/2005 07/12/2021 Other ventral hernia without mention of obstruction or gangrene 03/26/2004 07/01/2007 THROMBOPHLEBITIS NOS(aka DVT) 07/21/2003 PULMON EMBOLISM/INFARCT(aka EMBOLISM) 07/21/2003 08/21/2009 documented as of this encounter (statuses as of 12/26/2021) [facility] History of Past illness Narrative* Problem Noted Date Resolved Date Screening for colon cancer 11/24/201607/12 Overview: Added automatically from request for surgery [id number] Pain in joint, lower leg 11/14/2008 010 MASS IN SUBCUTANEOUS TISSUE 07/21/200808/04 Non-healing surgical wound 03/16/200705/18 Other injury of other sites of trunk 01/16/2006 07/01/2007 ASA CLASS III 05/07/2005 07/12/2021 Other ventral hernia without mention of obstruction or gangrene 03/26/2004 07/01/2007 THROMBOPHLEBITIS NOS(aka DVT) 07/21/2003 PULMON EMBOLISM/INFARCT(aka EMBOLISM) 07/21/2003 08/21/2009 documented as of this encounter (statuses as of 12/26/2021) [facility]2017 History of Past illness Narrative* Problem Noted Date Resolved Date Screening for colon cancer 11/24/201607/12 Overview: Added automatically from request for surgery [id number] Pain in joint, lower leg 11/14/2008 010 MASS IN SUBCUTANEOUS TISSUE 07/21/200808/04 Non-healing surgical wound 03/16/200705/18 Other injury of other sites of trunk 01/16/2006 07/01/2007 ASA CLASS III 05/07/2005 07/12/2021 Other ventral hernia without mention of obstruction or gangrene 03/26/2004 07/01/2007 THROMBOPHLEBITIS NOS(aka DVT) 07/21/2003 PULMON EMBOLISM/INFARCT(aka EMBOLISM) 07/21/2003 08/21/2009 documented as of this encounter (statuses as of 01/01/2022) [facility] History of Past illness Narrative* Problem Noted Date Resolved Date Screening for colon cancer 11/24/201607/12 Overview: Added automatically from request for surgery [id number] Pain in joint, lower leg 11/14/2008 010 MASS IN SUBCUTANEOUS TISSUE 07/21/200808/04 Non-healing surgical wound 03/16/200705/18 Other injury of other sites of trunk 01/16/2006 07/01/2007 ASA CLASS III 05/07/2005 07/12/2021 Other ventral hernia without mention of obstruction or gangrene 03/26/2004 07/01/2007 THROMBOPHLEBITIS NOS(aka DVT) 07/21/2003 PULMON EMBOLISM/INFARCT(aka EMBOLISM) 07/21/2003 08/21/2009 documented as of this encounter (statuses as of 01/02/2022) [facility]2017 History of Past illness Narrative* Problem Noted Date Resolved Date Screening for colon cancer 11/24/201607/12 Overview: Added automatically from request for surgery [id number] Pain in joint, lower leg 11/14/2008 010 MASS IN SUBCUTANEOUS TISSUE 07/21/200808/04 Non-healing surgical wound 03/16/200705/18 Other injury of other sites of trunk 01/16/2006 07/01/2007 ASA CLASS III 05/07/2005 07/12/2021 Other ventral hernia without mention of obstruction or gangrene 03/26/2004 07/01/2007 THROMBOPHLEBITIS NOS(aka DVT) 07/21/2003 PULMON EMBOLISM/INFARCT(aka EMBOLISM) 07/21/2003 08/21/2009 documented as of this encounter (statuses as of 01/04/2022) [facility]2017 History of Past illness Narrative* Problem Noted Date Resolved Date Screening for colon cancer 11/24/201607/12 Overview: Added automatically from request for surgery [id number] Pain in joint, lower leg 11/14/2008 010 MASS IN SUBCUTANEOUS TISSUE 07/21/200808/04 Non-healing surgical wound 03/16/200705/18 Other injury of other sites of trunk 01/16/2006 07/01/2007 ASA CLASS III 05/07/2005 07/12/2021 Other ventral hernia without mention of obstruction or gangrene 03/26/2004 07/01/2007 THROMBOPHLEBITIS NOS(aka DVT) 07/21/2003 PULMON EMBOLISM/INFARCT(aka EMBOLISM) 07/21/2003 08/21/2009 documented as of this encounter (statuses as of 01/07/2022) [facility] History of Past illness Narrative* Problem Noted Date Resolved Date Screening for colon cancer 11/24/201607/12 Overview: Added automatically from request for surgery [id number] Pain in joint, lower leg 11/14/2008 010 MASS IN SUBCUTANEOUS TISSUE 07/21/200808/04 Non-healing surgical wound 03/16/200705/18 Other injury of other sites of trunk 01/16/2006 07/01/2007 ASA CLASS III 05/07/2005 07/12/2021 Other ventral hernia without mention of obstruction or gangrene 03/26/2004 07/01/2007 THROMBOPHLEBITIS NOS(aka DVT) 07/21/2003 PULMON EMBOLISM/INFARCT(aka EMBOLISM) 07/21/2003 08/21/2009 documented as of this encounter (statuses as of 01/07/2022) [facility]2017 History of Past illness Narrative* Problem Noted Date Resolved Date Screening for colon cancer 11/24/201607/12 Overview: Added automatically from request for surgery [id number] Pain in joint, lower leg 11/14/2008 010 MASS IN SUBCUTANEOUS TISSUE 07/21/200808/04 Non-healing surgical wound 03/16/200705/18 Other injury of other sites of trunk 01/16/2006 07/01/2007 ASA CLASS III 05/07/2005 07/12/2021 Other ventral hernia without mention of obstruction or gangrene 03/26/2004 07/01/2007 THROMBOPHLEBITIS NOS(aka DVT) 07/21/2003 PULMON EMBOLISM/INFARCT(aka EMBOLISM) 07/21/2003 08/21/2009 documented as of this encounter (statuses as of 01/09/2022) [facility] History of Past illness Narrative* Problem Noted Date Resolved Date Screening for colon cancer 11/24/201607/12 Overview: Added automatically from request for surgery [id number] Pain in joint, lower leg 11/14/2008 010 MASS IN SUBCUTANEOUS TISSUE 07/21/200808/04 Non-healing surgical wound 03/16/200705/18 Other injury of other sites of trunk 01/16/2006 07/01/2007 ASA CLASS III 05/07/2005 07/12/2021 Other ventral hernia without mention of obstruction or gangrene 03/26/2004 07/01/2007 THROMBOPHLEBITIS NOS(aka DVT) 07/21/2003 PULMON EMBOLISM/INFARCT(aka EMBOLISM) 07/21/2003 08/21/2009 documented as of this encounter (statuses as of 01/09/2022) [facility] History of Past illness Narrative* Problem Noted Date Resolved Date Screening for colon cancer 11/24/201607/12 Overview: Added automatically from request for surgery [id number] Pain in joint, lower leg 11/14/2008 010 MASS IN SUBCUTANEOUS TISSUE 07/21/200808/04 Non-healing surgical wound 03/16/200705/18 Other injury of other sites of trunk 01/16/2006 07/01/2007 ASA CLASS III 05/07/2005 07/12/2021 Other ventral hernia without mention of obstruction or gangrene 03/26/2004 07/01/2007 THROMBOPHLEBITIS NOS(aka DVT) 07/21/2003 PULMON EMBOLISM/INFARCT(aka EMBOLISM) 07/21/2003 08/21/2009 documented as of this encounter (statuses as of 01/14/2022) [facility] History of Past illness Narrative* Problem Noted Date Resolved Date Screening for colon cancer 11/24/201607/12 Overview: Added automatically from request for surgery [id number] Pain in joint, lower leg 11/14/2008 010 MASS IN SUBCUTANEOUS TISSUE 07/21/200808/04 Non-healing surgical wound 03/16/200705/18 Other injury of other sites of trunk 01/16/2006 07/01/2007 ASA CLASS III 05/07/2005 07/12/2021 Other ventral hernia without mention of obstruction or gangrene 03/26/2004 07/01/2007 THROMBOPHLEBITIS NOS(aka DVT) 07/21/2003 PULMON EMBOLISM/INFARCT(aka EMBOLISM) 07/21/2003 08/21/2009 documented as of this encounter (statuses as of 01/20/2022) [facility] History of Past illness Narrative* Problem Noted Date Resolved Date Screening for colon cancer 11/24/201607/12 Overview: Added automatically from request for surgery [id number] Pain in joint, lower leg 11/14/2008 010 MASS IN SUBCUTANEOUS TISSUE 07/21/200808/04 Non-healing surgical wound 03/16/200705/18 Other injury of other sites of trunk 01/16/2006 07/01/2007 ASA CLASS III 05/07/2005 07/12/2021 Other ventral hernia without mention of obstruction or gangrene 03/26/2004 07/01/2007 THROMBOPHLEBITIS NOS(aka DVT) 07/21/2003 PULMON EMBOLISM/INFARCT(aka EMBOLISM) 07/21/2003 08/21/2009 documented as of this encounter (statuses as of 01/30/2022) [facility] History of Past illness Narrative* Problem Noted Date Resolved Date Screening for colon cancer 11/24/201607/12 Overview: Added automatically from request for surgery [id number] Pain in joint, lower leg 11/14/2008 010 MASS IN SUBCUTANEOUS TISSUE 07/21/200808/04 Non-healing surgical wound 03/16/200705/18 Other injury of other sites of trunk 01/16/2006 07/01/2007 ASA CLASS III 05/07/2005 07/12/2021 Other ventral hernia without mention of obstruction or gangrene 03/26/2004 07/01/2007 THROMBOPHLEBITIS NOS(aka DVT) 07/21/2003 PULMON EMBOLISM/INFARCT(aka EMBOLISM) 07/21/2003 08/21/2009 documented as of this encounter (statuses as of 01/30/2022) [facility] History of Past illness Narrative* Problem Noted Date Resolved Date Screening for colon cancer 11/24/201607/12 Overview: Added automatically from request for surgery [id number] Pain in joint, lower leg 11/14/2008 010 MASS IN SUBCUTANEOUS TISSUE 07/21/200808/04 Non-healing surgical wound 03/16/200705/18 Other injury of other sites of trunk 01/16/2006 07/01/2007 ASA CLASS III 05/07/2005 07/12/2021 Other ventral hernia without mention of obstruction or gangrene 03/26/2004 07/01/2007 THROMBOPHLEBITIS NOS(aka DVT) 07/21/2003 PULMON EMBOLISM/INFARCT(aka EMBOLISM) 07/21/2003 08/21/2009 documented as of this encounter (statuses as of 02/14/2022) [facility] History of Past illness Narrative* Problem Noted Date Resolved Date Screening for colon cancer 11/24/201607/12 Overview: Added automatically from request for surgery [id number] Pain in joint, lower leg 11/14/2008 010 MASS IN SUBCUTANEOUS TISSUE 07/21/200808/04 Non-healing surgical wound 03/16/200705/18 Other injury of other sites of trunk 01/16/2006 07/01/2007 ASA CLASS III 05/07/2005 07/12/2021 Other ventral hernia without mention of obstruction or gangrene 03/26/2004 07/01/2007 THROMBOPHLEBITIS NOS(aka DVT) 07/21/2003 PULMON EMBOLISM/INFARCT(aka EMBOLISM) 07/21/2003 08/21/2009 documented as of this encounter (statuses as of 02/18/2022) [facility] History of Past illness Narrative* Problem Noted Date Resolved Date Screening for colon cancer 11/24/201607/12 Overview: Added automatically from request for surgery [id number] Pain in joint, lower leg 11/14/2008 010 MASS IN SUBCUTANEOUS TISSUE 07/21/200808/04 Non-healing surgical wound 03/16/200705/18 Other injury of other sites of trunk 01/16/2006 07/01/2007 ASA CLASS III 05/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 07/12/2021 Other ventral hernia without mention of obstruction or gangrene 03/26/2004 07/01/2007 THROMBOPHLEBITIS NOS(aka DVT) 07/21/2003 PULMON EMBOLISM/INFARCT(aka EMBOLISM) 07/21/2003 08/21/2009 documented as of this encounter (statuses as of 03/04/2022) [facility] History of Past illness Narrative* Problem Noted Date Resolved Date Screening for colon cancer 11/24/201607/12 Overview: Added automatically from request for surgery [id number] Pain in joint, lower leg 11/14/2008 010 MASS IN SUBCUTANEOUS TISSUE 07/21/200808/04 Non-healing surgical wound 03/16/200705/18 Other injury of other sites of trunk 01/16/2006 07/01/2007 ASA CLASS III 05/07/2005 07/12/2021 Other ventral hernia without mention of obstruction or gangrene 03/26/2004 07/01/2007 THROMBOPHLEBITIS NOS(aka DVT) 07/21/2003 PULMON EMBOLISM/INFARCT(aka EMBOLISM) 07/21/2003 08/21/2009 documented as of this encounter (statuses as of 04/16/2022) [facility] History of Past illness Narrative* Problem Noted Date Resolved Date Screening for colon cancer 11/24/201607/12 Overview: Added automatically from request for surgery [id number] Pain in joint, lower leg 11/14/2008 010 MASS IN SUBCUTANEOUS TISSUE 07/21/200808/04 Non-healing surgical wound 03/16/200705/18 Other injury of other sites of trunk 01/16/2006 07/01/2007 ASA CLASS III 05/07/2005 07/12/2021 Other ventral hernia without mention of obstruction or gangrene 03/26/2004 07/01/2007 THROMBOPHLEBITIS NOS(aka DVT) 07/21/2003 PULMON EMBOLISM/INFARCT(aka EMBOLISM) 07/21/2003 08/21/2009 documented as of this encounter (statuses as of 04/17/2022) [facility] History of Past illness Narrative* Problem Noted Date Resolved Date Screening for colon cancer 11/24/201607/12 Overview: Added automatically from request for surgery [id number] Pain in joint, lower leg 11/14/2008 010 MASS IN SUBCUTANEOUS TISSUE 07/21/200808/04 Non-healing surgical wound 03/16/200705/18 Other injury of other sites of trunk 01/16/2006 07/01/2007 ASA CLASS III 05/07/2005 07/12/2021 Other ventral hernia without mention of obstruction or gangrene 03/26/2004 07/01/2007 THROMBOPHLEBITIS NOS(aka DVT) 07/21/2003 PULMON EMBOLISM/INFARCT(aka EMBOLISM) 07/21/2003 08/21/2009 documented as of this encounter (statuses as of 04/29/2022) [facility] History of Past illness Narrative* Problem Noted Date Resolved Date Screening for colon cancer 11/24/201607/12 Overview: Added automatically from request for surgery [id number] Pain in joint, lower leg 11/14/2008 010 MASS IN SUBCUTANEOUS TISSUE 07/21/200808/04 Non-healing surgical wound 03/16/200705/18 Other injury of other sites of trunk 01/16/2006 07/01/2007 ASA CLASS III 05/07/2005 07/12/2021 Other ventral hernia without mention of obstruction or gangrene 03/26/2004 07/01/2007 THROMBOPHLEBITIS NOS(aka DVT) 07/21/2003 PULMON EMBOLISM/INFARCT(aka EMBOLISM) 07/21/2003 08/21/2009 documented as of this encounter (statuses as of 04/30/2022) [facility] History of Past illness Narrative* Problem Noted Date Resolved Date Screening for colon cancer 11/24/201607/12 Overview: Added automatically from request for surgery [id number] Pain in joint, lower leg 11/14/2008 010 MASS IN SUBCUTANEOUS TISSUE 07/21/200808/04 Non-healing surgical wound 03/16/200705/18 Other injury of other sites of trunk 01/16/2006 07/01/2007 ASA CLASS III 05/07/2005 07/12/2021 Other ventral hernia without mention of obstruction or gangrene 03/26/2004 07/01/2007 THROMBOPHLEBITIS NOS(aka DVT) 07/21/2003 PULMON EMBOLISM/INFARCT(aka EMBOLISM) 07/21/2003 08/21/2009 documented as of this encounter (statuses as of 05/06/2022) [facility] History of Past illness Narrative* Problem Noted Date Resolved Date Screening for colon cancer 11/24/201607/12 Overview: Added automatically from request for surgery [id number] Pain in joint, lower leg 11/14/2008 010 MASS IN SUBCUTANEOUS TISSUE 07/21/200808/04 Non-healing surgical wound 03/16/200705/18 Other injury of other sites of trunk 01/16/2006 07/01/2007 ASA CLASS III 05/07/2005 07/12/2021 Other ventral hernia without mention of obstruction or gangrene 03/26/2004 07/01/2007 THROMBOPHLEBITIS NOS(aka DVT) 07/21/2003 PULMON EMBOLISM/INFARCT(aka EMBOLISM) 07/21/2003 08/21/2009 documented as of this encounter (statuses as of 05/15/2022) [facility] of Past illness Narrative* Problem Noted Date Resolved Date Screening for colon cancer 11/24/201607/12 Overview: Added automatically from request for surgery [id number] Pain in joint, lower leg 11/14/2008 010 MASS IN SUBCUTANEOUS TISSUE 07/21/200808/04 Non-healing surgical wound 03/16/200705/18 Other injury of other sites of trunk 01/16/2006 07/01/2007 ASA CLASS III 05/07/2005 07/12/2021 Other ventral hernia without mention of obstruction or gangrene 03/26/2004 07/01/2007 THROMBOPHLEBITIS NOS(aka DVT) 07/21/2003 PULMON EMBOLISM/INFARCT(aka EMBOLISM) 07/21/2003 08/21/2009 documented as of this encounter (statuses as of 05/16/2022) [facility] of Past illness Narrative* Problem Noted Date Resolved Date Screening for colon cancer 11/24/201607/12 Overview: Added automatically from request for surgery [id number] Pain in joint, lower leg 11/14/2008 010 MASS IN SUBCUTANEOUS TISSUE 07/21/200808/04 Non-healing surgical wound 03/16/200705/18 Other injury of other sites of trunk 01/16/2006 07/01/2007 ASA CLASS III 05/07/2005 07/12/2021 Other ventral hernia without mention of obstruction or gangrene 03/26/2004 07/01/2007 THROMBOPHLEBITIS NOS(aka DVT) 07/21/2003 PULMON EMBOLISM/INFARCT(aka EMBOLISM) 07/21/2003 08/21/2009 documented as of this encounter (statuses as of 05/19/2022) [facility] of Past illness Narrative* Problem Noted Date Resolved Date Screening for colon cancer 11/24/201607/12 Overview: Added automatically from request for surgery [id number] Pain in joint, lower leg 11/14/2008 010 MASS IN SUBCUTANEOUS TISSUE 07/21/200808/04 Non-healing surgical wound 03/16/200705/18 Other injury of other sites of trunk 01/16/2006 07/01/2007 ASA CLASS III 05/07/2005 07/12/2021 Other ventral hernia without mention of obstruction or gangrene 03/26/2004 07/01/2007 THROMBOPHLEBITIS NOS(aka DVT) 07/21/2003 PULMON EMBOLISM/INFARCT(aka EMBOLISM) 07/21/2003 08/21/2009 documented as of this encounter (statuses as of 05/30/2022) [facility] History of Past illness Narrative* Problem Noted Date Resolved Date Screening for colon cancer 11/24/201607/12 Overview: Added automatically from request for surgery [id number] Pain in joint, lower leg 11/14/2008 010 MASS IN SUBCUTANEOUS TISSUE 07/21/200808/04 Non-healing surgical wound 03/16/200705/18 Other injury of other sites of trunk 01/16/2006 07/01/2007 ASA CLASS III 05/07/2005 07/12/2021 Other ventral hernia without mention of obstruction or gangrene 03/26/2004 07/01/2007 THROMBOPHLEBITIS NOS(aka DVT) 07/21/2003 PULMON EMBOLISM/INFARCT(aka EMBOLISM) 07/21/2003 08/21/2009 documented as of this encounter (statuses as of 06/04/2022) [facility] of Past illness Narrative* Problem Noted Date Resolved Date Screening for colon cancer 11/24/201607/12 Overview: Added automatically from request for surgery [id number] Pain in joint, lower leg 11/14/2008 010 MASS IN SUBCUTANEOUS TISSUE 07/21/200808/04 Non-healing surgical wound 03/16/200705/18 Other injury of other sites of trunk 01/16/2006 07/01/2007 ASA CLASS III 05/07/2005 07/12/2021 Other ventral hernia without mention of obstruction or gangrene 03/26/2004 07/01/2007 THROMBOPHLEBITIS NOS(aka DVT) 07/21/2003 PULMON EMBOLISM/INFARCT(aka EMBOLISM) 07/21/2003 08/21/2009 documented as of this encounter (statuses as of 06/26/2022) [facility] of Past illness Narrative* Problem Noted Date Resolved Date Screening for colon cancer 11/24/201607/12 Overview: Added automatically from request for surgery [id number] Pain in joint, lower leg 11/14/2008 010 MASS IN SUBCUTANEOUS TISSUE 07/21/200808/04 Non-healing surgical wound 03/16/200705/18 Other injury of other sites of trunk 01/16/2006 07/01/2007 ASA CLASS III 05/07/2005 07/12/2021 Other ventral hernia without mention of obstruction or gangrene 03/26/2004 07/01/2007 THROMBOPHLEBITIS NOS(aka DVT) 07/21/2003 PULMON EMBOLISM/INFARCT(aka EMBOLISM) 07/21/2003 08/21/2009 documented as of this encounter (statuses as of 06/27/2022) [facility] of Past illness Narrative* Problem Noted Date Resolved Date Screening for colon cancer 11/24/201607/12 Overview: Added automatically from request for surgery [id number] Pain in joint, lower leg 11/14/2008 010 MASS IN SUBCUTANEOUS TISSUE 07/21/200808/04 Non-healing surgical wound 03/16/200705/18 Other injury of other sites of trunk 01/16/2006 07/01/2007 ASA CLASS III 05/07/2005 07/12/2021 Other ventral hernia without mention of obstruction or gangrene 03/26/2004 07/01/2007 THROMBOPHLEBITIS NOS(aka DVT) 07/21/2003 PULMON EMBOLISM/INFARCT(aka EMBOLISM) 07/21/2003 08/21/2009 documented as of this encounter (statuses as of 06/30/2022) [facility] of Past illness Narrative* Problem Noted Date Resolved Date Screening for colon cancer 11/24/201607/12 Overview: Added automatically from request for surgery [id number] Pain in joint, lower leg 11/14/2008 010 MASS IN SUBCUTANEOUS TISSUE 07/21/200808/04 Non-healing surgical wound 03/16/200705/18 Other injury of other sites of trunk 01/16/2006 07/01/2007 ASA CLASS III 05/07/2005 07/12/2021 Other ventral hernia without mention of obstruction or gangrene 03/26/2004 07/01/2007 THROMBOPHLEBITIS NOS(aka DVT) 07/21/2003 PULMON EMBOLISM/INFARCT(aka EMBOLISM) 07/21/2003 08/21/2009 documented as of this encounter (statuses as of 07/01/2022) [facility] Past illness Narrative* Problem Noted Date Resolved Date Screening for colon cancer 11/24/201607/12 Overview: Added automatically from request for surgery [id number] Pain in joint, lower leg 11/14/2008 010 MASS IN SUBCUTANEOUS TISSUE 07/21/200808/04 Non-healing surgical wound 03/16/200705/18 Other injury of other sites of trunk 01/16/2006 07/01/2007 ASA CLASS III 05/07/2005 07/12/2021 Other ventral hernia without mention of obstruction or gangrene 03/26/2004 07/01/2007 THROMBOPHLEBITIS NOS(aka DVT) 07/21/2003 PULMON EMBOLISM/INFARCT(aka EMBOLISM) 07/21/2003 08/21/2009 documented as of this encounter (statuses as of 07/03/2022) [facility]2017 History of Past illness Narrative* Problem Noted Date Resolved Date Screening for colon cancer 11/24/201607/12 Overview: Added automatically from request for surgery [id number] Pain in joint, lower leg 11/14/2008 010 MASS IN SUBCUTANEOUS TISSUE 07/21/200808/04 Non-healing surgical wound 03/16/200705/18 Other injury of other sites of trunk 01/16/2006 07/01/2007 ASA CLASS III 05/07/2005 07/12/2021 Other ventral hernia without mention of obstruction or gangrene 03/26/2004 07/01/2007 THROMBOPHLEBITIS NOS(aka DVT) 07/21/2003 PULMON EMBOLISM/INFARCT(aka EMBOLISM) 07/21/2003 08/21/2009 documented as of this encounter (statuses as of 07/14/2022) [facility] History of Past illness Narrative* Problem Noted Date Resolved Date Screening for colon cancer 11/24/201607/12 Overview: Added automatically from request for surgery [id number] Pain in joint, lower leg 11/14/2008 010 MASS IN SUBCUTANEOUS TISSUE 07/21/200808/04 Non-healing surgical wound 03/16/200705/18 Other injury of other sites of trunk 01/16/2006 07/01/2007 ASA CLASS III 05/07/2005 07/12/2021 Other ventral hernia without mention of obstruction or gangrene 03/26/2004 07/01/2007 THROMBOPHLEBITIS NOS(aka DVT) 07/21/2003 PULMON EMBOLISM/INFARCT(aka EMBOLISM) 07/21/2003 08/21/2009 documented as of this encounter (statuses as of 07/31/2022) [facility] History of Past illness Narrative* Problem Noted Date Resolved Date Screening for colon cancer 11/24/201607/12 Overview: Added automatically from request for surgery [id number] Pain in joint, lower leg 11/14/2008 010 MASS IN SUBCUTANEOUS TISSUE 07/21/200808/04 Non-healing surgical wound 03/16/200705/18 Other injury of other sites of trunk 01/16/2006 07/01/2007 ASA CLASS III 05/07/2005 07/12/2021 Other ventral hernia without mention of obstruction or gangrene 03/26/2004 07/01/2007 THROMBOPHLEBITIS NOS(aka DVT) 07/21/2003 PULMON EMBOLISM/INFARCT(aka EMBOLISM) 07/21/2003 08/21/2009 documented as of this encounter (statuses as of 08/05/2022) [facility] History of Past illness Narrative* Problem Noted Date Resolved Date Screening for colon cancer 11/24/201607/12 Overview: Added automatically from request for surgery [id number] Pain in joint, lower leg 11/14/2008 010 MASS IN SUBCUTANEOUS TISSUE 07/21/200808/04 Non-healing surgical wound 03/16/200705/18 Other injury of other sites of trunk 01/16/2006 07/01/2007 ASA CLASS III 05/07/2005 07/12/2021 Other ventral hernia without mention of obstruction or gangrene 03/26/2004 07/01/2007 THROMBOPHLEBITIS NOS(aka DVT) 07/21/2003 PULMON EMBOLISM/INFARCT(aka EMBOLISM) 07/21/2003 08/21/2009 documented as of this encounter (statuses as of 08/14/2022) [facility] History of Past illness Narrative* Problem Noted Date Resolved Date Screening for colon cancer 11/24/201607/12 Overview: Added automatically from request for surgery [id number] Pain in joint, lower leg 11/14/2008 010 MASS IN SUBCUTANEOUS TISSUE 07/21/200808/04 Non-healing surgical wound 03/16/200705/18 Other injury of other sites of trunk 01/16/2006 07/01/2007 ASA CLASS III 05/07/2005 07/12/2021 Other ventral hernia without mention of obstruction or gangrene 03/26/2004 07/01/2007 THROMBOPHLEBITIS NOS(aka DVT) 07/21/2003 PULMON EMBOLISM/INFARCT(aka EMBOLISM) 07/21/2003 08/21/2009 documented as of this encounter (statuses as of 10/02/2022) [facility] History of Past illness Narrative* Problem Noted Date Resolved Date Screening for colon cancer 11/24/201607/12 Overview: Added automatically from request for surgery [id number] Pain in joint, lower leg 11/14/2008 010 MASS IN SUBCUTANEOUS TISSUE 07/21/200808/04 Non-healing surgical wound 03/16/200705/18 Other injury of other sites of trunk 01/16/2006 07/01/2007 ASA CLASS III 05/07/2005 07/12/2021 Other ventral hernia without mention of obstruction or gangrene 03/26/2004 07/01/2007 THROMBOPHLEBITIS NOS(aka DVT) 07/21/2003 PULMON EMBOLISM/INFARCT(aka EMBOLISM) 07/21/2003 08/21/2009 documented as of this encounter (statuses as of 10/09/2022) [facility] History of Past illness Narrative* Problem Noted Date Diagnosed Date Resolved Date Screening for colon cancer 11/24/2016 0 07/12/2021 Overview: Added automatically from request for surgery [id number] Pain in joint, lower leg 11/14/2008 MASS IN SUBCUTANEOUS TISSUE 07/21/2008 08/18/2018 Non-healing surgical wound 03/16/2007 0 05/18/2009 Other injury of other sites of trunk 01/16/2006 07/01/2007 ASA CLASS III 05/07/2005 07/12/2021 Other ventral hernia without mention of obstruction or gangrene 03/26/2004 07/01/2007 THROMBOPHLEBITIS NOS(aka DVT) 07/21/2003 08/21/2009 PULMON EMBOLISM/INFARCT(aka EMBOLISM) 07/21/2003 08/21/2009 documented as of this encounter (statuses as of 10/16/2022) [facility] History of Past illness Narrative* Problem Noted Date Diagnosed Date Resolved Date Screening for colon cancer 11/24/2016 0 07/12/2021 Overview: Added automatically from request for surgery [id number] Pain in joint, lower leg 11/14/2008 MASS IN SUBCUTANEOUS TISSUE 07/21/2008 08/18/2018 Non-healing surgical wound 03/16/2007 0 05/18/2009 Other injury of other sites of trunk 01/16/2006 07/01/2007 ASA CLASS III 05/07/2005 07/12/2021 Other ventral hernia without mention of obstruction or gangrene 03/26/2004 07/01/2007 THROMBOPHLEBITIS NOS(aka DVT) 07/21/2003 08/21/2009 PULMON EMBOLISM/INFARCT(aka EMBOLISM) 07/21/2003 08/21/2009 documented as of this encounter (statuses as of 12/05/2022) [facility] History of Past illness Narrative* Problem Noted Date Diagnosed Date Resolved Date Screening for colon cancer 11/24/2016 0 07/12/2021 Overview: Added automatically from request for surgery [id number] Pain in joint, lower leg 11/14/2008 MASS IN SUBCUTANEOUS TISSUE 07/21/2008 08/18/2018 Non-healing surgical wound 03/16/2007 0 05/18/2009 Other injury of other sites of trunk 01/16/2006 07/01/2007 ASA CLASS III 05/07/2005 07/12/2021 Other ventral hernia without mention of obstruction or gangrene 03/26/2004 07/01/2007 THROMBOPHLEBITIS NOS(aka DVT) 07/21/2003 08/21/2009 PULMON EMBOLISM/INFARCT(aka EMBOLISM) 07/21/2003 08/21/2009 documented as of this encounter (statuses as of 12/22/2022) [facility] History of Past illness Narrative* Problem Noted Date Diagnosed Date Resolved Date Screening for colon cancer 11/24/2016 0 07/12/2021 Overview: Added automatically from request for surgery [id number] Pain in joint, lower leg 11/14/2008 MASS IN SUBCUTANEOUS TISSUE 07/21/2008 08/18/2018 Non-healing surgical wound 03/16/2007 0 05/18/2009 Other injury of other sites of trunk 01/16/2006 07/01/2007 ASA CLASS III 05/07/2005 07/12/2021 Other ventral hernia without mention of obstruction or gangrene 03/26/2004 07/01/2007 THROMBOPHLEBITIS NOS(aka DVT) 07/21/2003 08/21/2009 PULMON EMBOLISM/INFARCT(aka EMBOLISM) 07/21/2003 08/21/2009 documented as of this encounter (statuses as of 12/24/2022) [facility] History of Past illness Narrative* Problem Noted Date Diagnosed Date Resolved Date Screening for colon cancer 11/24/2016 0 07/12/2021 Overview: Added automatically from request for surgery [id number] Pain in joint, lower leg 11/14/2008 MASS IN SUBCUTANEOUS TISSUE 07/21/2008 08/18/2018 Non-healing surgical wound 03/16/2007 0 05/18/2009 Other injury of other sites of trunk 01/16/2006 07/01/2007 ASA CLASS III 05/07/2005 07/12/2021 Other ventral hernia without mention of obstruction or gangrene 03/26/2004 07/01/2007 THROMBOPHLEBITIS NOS(aka DVT) 07/21/2003 08/21/2009 PULMON EMBOLISM/INFARCT(aka EMBOLISM) 07/21/2003 08/21/2009 documented as of this encounter (statuses as of 01/15/2023) [facility] History of Past illness Narrative* Problem Noted Date Diagnosed Date Resolved Date Screening for colon cancer 11/24/2016 0 07/12/2021 Overview: Added automatically from request for surgery [id number] Pain in joint, lower leg 11/14/2008 MASS IN SUBCUTANEOUS TISSUE 07/21/2008 08/18/2018 Non-healing surgical wound 03/16/2007 0 05/18/2009 Other injury of other sites of trunk 01/16/2006 07/01/2007 ASA CLASS III 05/07/2005 07/12/2021 Other ventral hernia without mention of obstruction or gangrene 03/26/2004 07/01/2007 THROMBOPHLEBITIS NOS(aka DVT) 07/21/2003 08/21/2009 PULMON EMBOLISM/INFARCT(aka EMBOLISM) 07/21/2003 08/21/2009 documented as of this encounter (statuses as of 01/15/2023) [facility] History of Past illness Narrative* Problem Noted Date Diagnosed Date Resolved Date Screening for colon cancer 11/24/2016 0 07/12/2021 Overview: Added automatically from request for surgery [id number] Pain in joint, lower leg 11/14/2008 MASS IN SUBCUTANEOUS TISSUE 07/21/2008 08/18/2018 Non-healing surgical wound 03/16/2007 0 05/18/2009 Other injury of other sites of trunk 01/16/2006 07/01/2007 ASA CLASS III 05/07/2005 07/12/2021 Other ventral hernia without mention of obstruction or gangrene 03/26/2004 07/01/2007 THROMBOPHLEBITIS NOS(aka DVT) 07/21/2003 08/21/2009 PULMON EMBOLISM/INFARCT(aka EMBOLISM) 07/21/2003 08/21/2009 documented as of this encounter (statuses as of 02/08/2023) [facility] History of Past illness Narrative* Problem Noted Date Diagnosed Date Resolved Date Screening for colon cancer 11/24/2016 0 07/12/2021 Overview: Added automatically from request for surgery [id number] Pain in joint, lower leg 11/14/2008 MASS IN SUBCUTANEOUS TISSUE 07/21/2008 08/18/2018 Non-healing surgical wound 03/16/2007 0 05/18/2009 Other injury of other sites of trunk 01/16/2006 07/01/2007 ASA CLASS III 05/07/2005 07/12/2021 Other ventral hernia without mention of obstruction or gangrene 03/26/2004 07/01/2007 THROMBOPHLEBITIS NOS(aka DVT) 07/21/2003 08/21/2009 PULMON EMBOLISM/INFARCT(aka EMBOLISM) 07/21/2003 08/21/2009 documented as of this encounter (statuses as of 02/08/2023) [facility] History of Past illness Narrative* Problem Noted Date Diagnosed Date Resolved Date Screening for colon cancer 11/24/2016 0 07/12/2021 Overview: Added automatically from request for surgery [id number] Pain in joint, lower leg 11/14/2008 MASS IN SUBCUTANEOUS TISSUE 07/21/2008 08/18/2018 Non-healing surgical wound 03/16/2007 0 05/18/2009 Other injury of other sites of trunk 01/16/2006 07/01/2007 ASA CLASS III 05/07/2005 07/12/2021 Other ventral hernia without mention of obstruction or gangrene 03/26/2004 07/01/2007 THROMBOPHLEBITIS NOS(aka DVT) 07/21/2003 08/21/2009 PULMON EMBOLISM/INFARCT(aka EMBOLISM) 07/21/2003 08/21/2009 documented as of this encounter (statuses as of 02/08/2023) [facility] History of Past illness Narrative* Problem Noted Date Diagnosed Date Resolved Date Screening for colon cancer 11/24/2016 0 07/12/2021 Overview: Added automatically from request for surgery [id number] Pain in joint, lower leg 11/14/2008 MASS IN SUBCUTANEOUS TISSUE 07/21/2008 08/18/2018 Non-healing surgical wound 03/16/2007 0 05/18/2009 Other injury of other sites of trunk 01/16/2006 07/01/2007 ASA CLASS III 05/07/2005 07/12/2021 Other ventral hernia without mention of obstruction or gangrene 03/26/2004 07/01/2007 THROMBOPHLEBITIS NOS(aka DVT) 07/21/2003 08/21/2009 PULMON EMBOLISM/INFARCT(aka EMBOLISM) 07/21/2003 08/21/2009 documented as of this encounter (statuses as of 02/08/2023) [facility] History of Past illness Narrative* Problem Noted Date Diagnosed Date Resolved Date Screening for colon cancer 11/24/2016 0 07/12/2021 Overview: Added automatically from request for surgery [id number] Pain in joint, lower leg 11/14/2008 MASS IN SUBCUTANEOUS TISSUE 07/21/2008 08/18/2018 Non-healing surgical wound 03/16/2007 0 05/18/2009 Other injury of other sites of trunk 01/16/2006 07/01/2007 ASA CLASS III 05/07/2005 07/12/2021 Other ventral hernia without mention of obstruction or gangrene 03/26/2004 07/01/2007 THROMBOPHLEBITIS NOS(aka DVT) 07/21/2003 08/21/2009 PULMON EMBOLISM/INFARCT(aka EMBOLISM) 07/21/2003 08/21/2009 documented as of this encounter (statuses as of 02/16/2023) [facility] History of Past illness Narrative* Problem Noted Date Diagnosed Date Resolved Date Screening for colon cancer 11/24/2016 0 07/12/2021 Overview: Added automatically from request for surgery [id number] Pain in joint, lower leg 11/14/2008 MASS IN SUBCUTANEOUS TISSUE 07/21/2008 08/18/2018 Non-healing surgical wound 03/16/2007 0 05/18/2009 Other injury of other sites of trunk 01/16/2006 07/01/2007 ASA CLASS III 05/07/2005 07/12/2021 Other ventral hernia without mention of obstruction or gangrene 03/26/2004 07/01/2007 THROMBOPHLEBITIS NOS(aka DVT) 07/21/2003 08/21/2009 PULMON EMBOLISM/INFARCT(aka EMBOLISM) 07/21/2003 08/21/2009 documented as of this encounter (statuses as of 03/03/2023) [facility] History of Past illness Narrative* Problem Noted Date Diagnosed Date Resolved Date Screening for colon cancer 11/24/2016 0 07/12/2021 Overview: Added automatically from request for surgery [id number] Pain in joint, lower leg 11/14/2008 MASS IN SUBCUTANEOUS TISSUE 07/21/2008 08/18/2018 Non-healing surgical wound 03/16/2007 0 05/18/2009 Other injury of other sites of trunk 01/16/2006 07/01/2007 ASA CLASS III 05/07/2005 07/12/2021 Other ventral hernia without mention of obstruction or gangrene 03/26/2004 07/01/2007 THROMBOPHLEBITIS NOS(aka DVT) 07/21/2003 08/21/2009 PULMON EMBOLISM/INFARCT(aka EMBOLISM) 07/21/2003 08/21/2009 documented as of this encounter (statuses as of 05/18/2023) [facility] History of Past illness Narrative* Problem Noted Date Diagnosed Date Resolved Date Screening for colon cancer 11/24/2016 0 07/12/2021 Overview: Added automatically from request for surgery [id number] Pain in joint, lower leg 11/14/2008 MASS IN SUBCUTANEOUS TISSUE 07/21/2008 08/18/2018 Non-healing surgical wound 03/16/2007 0 05/18/2009 Other injury of other sites of trunk 01/16/2006 07/01/2007 ASA CLASS III 05/07/2005 07/12/2021 Other ventral hernia without mention of obstruction or gangrene 03/26/2004 07/01/2007 THROMBOPHLEBITIS NOS(aka DVT) 07/21/2003 08/21/2009 PULMON EMBOLISM/INFARCT(aka EMBOLISM) 07/21/2003 08/21/2009 documented as of this encounter (statuses as of 05/20/2023) [facility] History of Past illness Narrative* Problem Noted Date Diagnosed Date Resolved Date Screening for colon cancer 11/24/2016 0 07/12/2021 Overview: Added automatically from request for surgery [id number] Pain in joint, lower leg 11/14/2008 MASS IN SUBCUTANEOUS TISSUE 07/21/2008 08/18/2018 Non-healing surgical wound 03/16/2007 0 05/18/2009 Other injury of other sites of trunk 01/16/2006 07/01/2007 ASA CLASS III 05/07/2005 07/12/2021 Other ventral hernia without mention of obstruction or gangrene 03/26/2004 07/01/2007 THROMBOPHLEBITIS NOS(aka DVT) 07/21/2003 08/21/2009 PULMON EMBOLISM/INFARCT(aka EMBOLISM) 07/21/2003 08/21/2009 documented as of this encounter (statuses as of 06/02/2023) [facility] of Past illness Narrative* Problem Noted Date Diagnosed Date Resolved Date Screening for colon cancer 11/24/2016 0 07/12/2021 Overview: Added automatically from request for surgery [id number] Pain in joint, lower leg 11/14/2008 MASS IN SUBCUTANEOUS TISSUE 07/21/2008 08/18/2018 Non-healing surgical wound 03/16/2007 0 05/18/2009 Other injury of other sites of trunk 01/16/2006 07/01/2007 ASA CLASS III 05/07/2005 07/12/2021 Other ventral hernia without mention of obstruction or gangrene 03/26/2004 07/01/2007 THROMBOPHLEBITIS NOS(aka DVT) 07/21/2003 08/21/2009 PULMON EMBOLISM/INFARCT(aka EMBOLISM) 07/21/2003 08/21/2009 documented as of this encounter (statuses as of 06/04/2023) [facility] of Past illness Narrative* Problem Noted Date Diagnosed Date Resolved Date Screening for colon cancer 11/24/2016 0 07/12/2021 Overview: Added automatically from request for surgery [id number] Pain in joint, lower leg 11/14/2008 MASS IN SUBCUTANEOUS TISSUE 07/21/2008 08/18/2018 Non-healing surgical wound 03/16/2007 0 05/18/2009 Other injury of other sites of trunk 01/16/2006 07/01/2007 ASA CLASS III 05/07/2005 07/12/2021 Other ventral hernia without mention of obstruction or gangrene 03/26/2004 07/01/2007 THROMBOPHLEBITIS NOS(aka DVT) 07/21/2003 08/21/2009 PULMON EMBOLISM/INFARCT(aka EMBOLISM) 07/21/2003 08/21/2009 documented as of this encounter (statuses as of 06/17/2023) [facility] of Past illness Narrative* Problem Noted Date Diagnosed Date Resolved Date Screening for colon cancer 11/24/2016 0 07/12/2021 Overview: Added automatically from request for surgery [id number] Pain in joint, lower leg 11/14/2008 MASS IN SUBCUTANEOUS TISSUE 07/21/2008 08/18/2018 Non-healing surgical wound 03/16/2007 0 05/18/2009 Other injury of other sites of trunk 01/16/2006 07/01/2007 ASA CLASS III 05/07/2005 07/12/2021 Other ventral hernia without mention of obstruction or gangrene 03/26/2004 07/01/2007 THROMBOPHLEBITIS NOS(aka DVT) 07/21/2003 08/21/2009 PULMON EMBOLISM/INFARCT(aka EMBOLISM) 07/21/2003 08/21/2009 documented as of this encounter (statuses as of 06/22/2023) [facility] of Past illness Narrative* Problem Noted Date Diagnosed Date Resolved Date Screening for colon cancer 11/24/2016 0 07/12/2021 Overview: Added automatically from request for surgery [id number] Pain in joint, lower leg 11/14/2008 MASS IN SUBCUTANEOUS TISSUE 07/21/2008 08/18/2018 Non-healing surgical wound 03/16/2007 0 05/18/2009 Other injury of other sites of trunk 01/16/2006 07/01/2007 ASA CLASS III 05/07/2005 07/12/2021 Other ventral hernia without mention of obstruction or gangrene 03/26/2004 07/01/2007 THROMBOPHLEBITIS NOS(aka DVT) 07/21/2003 08/21/2009 PULMON EMBOLISM/INFARCT(aka EMBOLISM) 07/21/2003 08/21/2009 documented as of this encounter (statuses as of 06/29/2023) [facility] of Past illness Narrative* Problem Noted Date Diagnosed Date Resolved Date Screening for colon cancer 11/24/2016 0 07/12/2021 Overview: Added automatically from request for surgery [id number] Pain in joint, lower leg 11/14/2008 MASS IN SUBCUTANEOUS TISSUE 07/21/2008 08/18/2018 Non-healing surgical wound 03/16/2007 0 05/18/2009 Other injury of other sites of trunk 01/16/2006 07/01/2007 ASA CLASS III 05/07/2005 07/12/2021 Other ventral hernia without mention of obstruction or gangrene 03/26/2004 07/01/2007 THROMBOPHLEBITIS NOS(aka DVT) 07/21/2003 08/21/2009 PULMON EMBOLISM/INFARCT(aka EMBOLISM) 07/21/2003 08/21/2009 documented as of this encounter (statuses as of 07/15/2023) [facility] of Past illness Narrative* Problem Noted Date Diagnosed Date Resolved Date Screening for colon cancer 11/24/2016 0 07/12/2021 Overview: Added automatically from request for surgery [id number] Pain in joint, lower leg 11/14/2008 MASS IN SUBCUTANEOUS TISSUE 07/21/2008 08/18/2018 Non-healing surgical wound 03/16/2007 0 05/18/2009 Other injury of other sites of trunk 01/16/2006 07/01/2007 ASA CLASS III 05/07/2005 07/12/2021 Other ventral hernia without mention of obstruction or gangrene 03/26/2004 07/01/2007 THROMBOPHLEBITIS NOS(aka DVT) 07/21/2003 08/21/2009 PULMON EMBOLISM/INFARCT(aka EMBOLISM) 07/21/2003 08/21/2009 documented as of this encounter (statuses as of 07/23/2023) [facility] Mono Lemon [facility] Note Date/Time September 06, 2024 9:49a m [facility] Medical Records Department [address] [place] [id number] Anesthesia Postop Eval I 09/06/24 0948 MR#: [id number] Acct: [id number] Name: MARI LOPEZ Rep #:[id number] : 1940 84 From: Moon PENG PCP: BROOKLYN Aguillon Status:REG S DC Y Race: C Location: [place] [address] Anesthesia: Postop Eval I Current Vital Signs [...] CRNA Cosigner Signature: Date CC: ~ Signed [facility] Work Phone: Discharge summary Author Jc Mireles [facility] Note Date/Time October 26, 2024 11:1 6am [facility] Medical Records Department [address] [place] [address] Emergency Department Summary 10/26/24 MR#: [id number] Acct: [id number] Name: MARI LOPEZ Rep #:[id number] : 1940 84 From: Jc brown DO PCP: Dr. Lizy Capone MD Status:RE G ER Location: ED HPI History of Present Illness Chief Complaint: Lower Extremity Injury Narrative Narrative: Chief complaint and HPI: Right lower extremity laceration. 84-year-old female with past medical history of atrial fibrillation, DVT, lymphedema on Eliquis presents for evaluation of right lower extremity laceration. Patient states shewas walking up her concrete steps into her house when she accidentally cut the medial portion of her right calf on the step. Laceration is bleeding. Not up-to-date on tetanus. Denies any fall. Denies numbness or tingling. Review of systems: See HPI Medications: As listed on the chart Allergies: As listed on the chart PFSH: Per chart Vital signs: As listed on the chart. Reviewed. Physical exam: Gen: A&O x3, NAD Head: Normocephalic, atraumatic Eyes: No sclera icterus, conjunctiva clear ENT: Moist mucous membranes CV: Regular rate Resp: Nonlabored respirations Musc: Full ROM, no deformity, gaping laceration to the medial aspect of the right cath with mild active bleeding and subcutaneous fat visualized, neurovascularly intact Neuro: Alert, oriented, grossly intact, sensation intact Psych: Cooperative, appropriate mood and affect [facility] Medical History VRE (vancomycin resistant enterococcus) culture positive Hypothyroidism Lymphedema Insomnia Obstructive sleep apnea Macrocytic anemia PAF (paroxysmal atrial fibrillation) Wears glasses Post-menopausal [...] Osteoarthritis Venous insufficiency of both lower extremities Pulmonary hypertension Diastolic dysfunction Elevated parathyroid hormone Metabolic acidosis Preop cardiovascular exam H/O hemorrhoids (HFpEF) heart failure with preserved ejection fraction History of pulmonary embolus (PE) COVID-19 (01/19/21) MRSA (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 Abdominal pain DVT (deep venous thrombosis) GERD (gastroesophageal reflux disease) Essential (primary) hypertension Incomplete left bundle branch [...] DAILY bowel m obility #30 ea 06/09/23 09/28/24 Rx oral powder packet atorvastatin 40 mg tablet 40 mg PO QHS cholesterol 03/3010/03/24 History levothyroxine 125 mcg tablet 125 mcg PO DAILY thyroid 05/18/24 10/04/24 History calcium acetate(phosphat bind) 667 667 mg PO TIDCM sup plement #1 cap 06/09/24 10/04/24 Rx mg capsule sennosides 8.6 mg-docusate sodium 2 tab PO BID constip ation #1 TAB 06/09/24 Unknown Rx 50 mg tablet (Stimulant Laxative Plus) carvedilol 6.25 mg tablet 6.25 mg PO BID Blood pressur e 09/28/24 10/14/24 07:45 History multivitamin 1 tab PO DAILY Supplement 09/28/24 History zinc gluconate 50 mg tablet 50 mg PO DAILY supplement 09/28/24 09/28/24 History Arthritis Pain Compound 3 click topical BID 30 days #60 GMS 10/17/24 Unknown Rx acetaminophen 500 mg tablet 1,000 mg (2 x 500 mg) PO T ID #0 10/17/24 Unknown Rx tabs ferrous sulfate 325 mg (65 mg 325 mg PO DAILY@1200 30 days #30 10/17/24 Unknown Rx iron) tablet (FeroSul) tabs furosemide 40 mg tablet 40 mg PO DAILY #0 tabs 10/17 Unknown Rx lidocaine 5 % topical patch 1 patch topical DAILY 30 d ays #30 10/17/24 Unknown Rx ea melatonin 3 mg tablet 3 mg PO QHS #0 tabs 10/17/24 Unknown Rx mirtazapine 15 mg tablet 7.5 mg (1/2 x 15 mg) PO 2200 30 10/17/24 Unknown Rx days #15 tabs oxycodone 5 mg tablet 5 mg PO Q4H PRN PRN Pain Sco re 10/17/24 Unknown Rx 1-10 Or Pre Pt/Ot 7 days #42 tabs sodium bicarbonate 650 mg tablet 650 mg PO 4X/DAY 30 d ays #120 tabs 10/17/24 Unknown Rx apixaban 2.5 mg tablet (Eliquis) 2.5 mg PO BID 30 days #60 tabs 10/18/24 Unknown Rx cholecalciferol (vitamin D3) 25 50 mcg PO 10/26/24 Unk nown History mcg (1,000 unit) tablet doxycycline hyclate 100 mg capsule 100 mg PO BID 5 day s #10 caps 10/26/24 Unknown Rx fluoride (sodium) 1.1 % dental applic PO 10/26/24 Unkn own History cream (Denta 5000 Plus) gabapentin 300 mg capsule 300 mg PO TID 10/26/24 Unkno wn History lacosamide 100 mg tablet 100 mg PO Q12H 10/26/24 Unkn own History nystatin 100,000 unit/gram topical topical 10/26/24 Un known History powder (Klayesta) vibegron 75 mg tablet (Gemtesa) 75 mg PO DAILY 5 Unknown History Allergy/AdvReac Type Severity Reaction Status Date / Time cefazolin (From Kefzol) Allergy Severe hives/difficulty Verified 10/26/24 10:14 swallowing ibuprofen Allergy Unknown Rash Verified 10/26/24 10:14 peanut Allergy Anaphylaxis Verified 10/26/24 10:14 Sulfa (Sulfonamide Allergy Unknown Verified 10/26/24 10:14 Antibiotics) sulfamethoxazole (From Allergy Other Verified 10/26/24 10:14 Bactrim) trimethoprim (From Bactrim) Allergy Other Verified 10/26/24 10:14 Family History Mother Cancer uterine Father No [...] Yes Type: coffee Number of servings: 3 EXAM Physical Exam Const Vital Signs: 10/26/24 10:01 10/26/24 10:26 Temperature 98.6 F Temperature Source Oral Pulse Rate 132 H 98 Respiratory Rate 18 18 Blood Pressure 106/74 125/92 H Blood Pressure Mean 84 103 Pulse Ox 97 96 Oxygen Delivery Method Room Air Room Air MDM MDM MDM Narrative Medical decision making narrative: 84-year-old female with past medical history of atrial fibrillation, DVT, lymphedema on Eliquis presents for evaluation of right lower extremity laceration. Patient states she was walking up her concrete steps into her housewhen she accidentally cut the medial portion of her right calf on the step. Laceration is bleeding. Not up-to-date on tetanus. Denies any fall. See physical exam findings. Patient has a right medial calf laceration that will require repair. Tetanus updated. I was unable to fully close the patient's woundgiven the integrity of her skin. I tried multiple suture sizes as well as vertical and horizontal mattresses, all sutures tore through the skin. Given that patient follows with Dr. Lomax in the wound clinic for previous wound graft, he was consulted and patient was discussed. Plan is for wet-to-dry dressings. He will see her in the wound clinic Thursday. she was updated of all results and the plan. She confirmed understanding. I was able to place 4 sutures that will need to be removed in 10 to 14 days. She confirmed understanding of the plan. Given the size of the laceration will place on doxycycline x 10 days for antibiotic prophylaxis. Patient stable to discharge home. Laceration Repair Indication: Laceration Location: 5 cm right medial calf laceration Consent: Risks, benefits, and alternatives discussed with patient and consent obtained Procedure: The area was prepped and draped in the usual sterile fashion. Local anesthesia was achieved using 1% Lidocaine without epinephrine. The bleeding stopped. The wound was copiously irrigated and cleaned. 4 sutures sutures wereplaced using 3-0 Ethilon in an interrupted fashion. I attempted to use 4-0 Ethilon but these tore through the skin. I tried to suture the remaining wound however was unable, the 3-0 Ethilon and 4-0 Ethilon was tearing through the skindespite vertical and horizontal mattresses. The estimated blood loss was minimal. A wet-to-dry dressing was applied. The patient tolerated the procedurewell. Foreign Material: None Debridement: None Follow-up: Anticipatory guidance, as well as standard post-procedure care, was explained. Return precautions are given. Follow-up visit set for suture removal and evaluation of the laceration. Impression: 1. 5 cm right medial calf laceration, partially sutured repaired 2. History of poor wound healing Discharge Plan Triage Chief Complaint: Lower Extremity Injury ED Provider: Jc Mireles Dx/Rx/DC Orders Clinical Impression: Laceration of leg, right Instructions: ED Laceration, All Closures, ED Laceration Extremity Prescriptions: New doxycycline hyclate 100 mg capsule 100 mg PO BID 5 Days Qty: 10 0RF No Action Mirena 20 mcg/24 hours (7 yrs) 52 mg intrauterine device 1 mcg intrauterine ONCE nitroglycerin 0.4 mg tablet, sublingual 0.4 mg sublingual Q5M PRN (Reason: chest pain) Qty: 30 1RF Rx Instructions: do not exceed 3 doses per episode carvedilol 6.25 mg tablet 6.25 mg PO BID multivitamin Tablet 1 tab PO DAILY zinc gluconate 50 mg tablet 50 mg PO DAILY Arthritis Pain Compound 3 click topical BID 30 Days Qty: 60 0RF furosemide 40 mg Tablet 40 mg PO DAILY Qty: 0 0RF melatonin 3 mg Tablet 3 mg PO QHS Qty: 0 0RF acetaminophen 500 mg Tablet 1,000 mg PO TID Qty: 0 0RF sodium bicarbonate 650 mg Tablet 650 mg PO 4X/DAY 30 Days Qty: 120 0RF ferrous sulfate [FeroSul] 325 mg (65 mg iron) Tablet 325 mg PO DAILY@1200 30 Days Qty: 30 0RF lidocaine 5 % Adhesive Patch,Medicated 1 patch topical DAILY 30 Days Qty: 30 0RF Protocol: *Topical Application Instructions APPLICATION INSTRUCTIONS: affected area mirtazapine 15 mg Tablet 7.5 mg PO 2200 30 Days Qty: 15 0RF oxycodone 5 mg Tablet 5 mg PO Q4H PRN PRN (Reason: Pain Score 1-10 Or Pre Pt/Ot) 7 Days Qty: 42 0RF Eliquis 2.5 mg tablet 2.5 mg PO BID 30 Days Qty: 60 0RF gabapentin 300 mg capsule 300 mg PO TID nystatin [Klayesta] 100,000 unit/gram powder topical fluoride (sodium) [Denta 5000 Plus] 1.1 % cream PO cholecalciferol (vitamin D3) 25 mcg (1,000 unit) tablet 50 mcg PO lacosamide 100 mg tablet 100 mg PO Q12H Gemtesa 75 mg tablet 75 mg PO DAILY polyethylene glycol 3350 17 gram Powder In Packet 17 g PO DAILY Qty: 30 0RF atorvastatin 40 mg tablet 40 mg PO QHS levothyroxine 125 mcg tablet 125 mcg PO DAILY Patient Comments: TAKE 1 TABLET BY MOUTH ONCE DAILY. TAKE ON EMPTY STOMACH. FOR THYROID. calcium acetate(phosphat bind) 667 mg Capsule 667 mg PO TIDCM Qty: 1 0RF sennosides-docusate sodium [Stimulant Laxative Plus] 8.6-50 mg Tablet 2 tab PO BID Qty: 1 0RF Primary Care Provider: Lizy Capone Referrals: Miryam Orozco NP-C [Non-Staff] - 3-5 Days Gonzalo Lomax MD [Med Staff - Active Staff] - 3-5 Days Activity Restrictions/Additional Instructions: Monitor for signs of infection. Take all of your antibiotics. Keep your appointment with the wound clinic on Thursday with Dr. Lomax. Sutures need to be removed in 10 to 14 days. Continue the wet-to-dry dressings twice a day. Return back to the ED if symptoms change or worsen. No soaking in the bathtub, hot tubs, lakes, hernandez, oceans until fully. Print Language: Barbadian Disposition Disposition: Home, Self Care What to do if you have Problems For any increased pain, shortness of breath, bleeding, nausea or vomiting, chestpain, or any unexpected problems, contact your Primary Care Provider. Call [facility] ([phone]) or report to the closest Emergency Room. Call 911 if necessary. 10/26/24 1116 <Electronically signed by Jc Mireles DO> Cosigner Signature (if applicable): CC: Dr. Lizy Capone MD ~ Signed [facility] Work Phone: Evaluation note* Diagnosis BENIGN HYPERTENSION(aka [...] Chest pain, unspecified [facility] Diagnosis Left upper quadrant abdominal pain [facility] [place] [facility]* Diagnosis Left upper quadrant abdominal pain [facility] [place] [facility]* Diagnosis Insomnia, unspecified type [facility] [place] [facility]* Diagnosis Rib pain on left side- Primary Chest pain, unspecified [facility] [place] [facility] Diagnosis Onset Date Resolution Status Dyspnea on minimal exertion acute Essential (primary) hypertension chronic [facility] Work Phone: Evaluation note* Diagnosis Lumbar spondylosis- Primary Lumbosacral spondylosis without myelopathy Other chronic pain Thoracic spine pain Pain in thoracic spine Myofascial pain Mylagia and myositis, unspecified [facility] [place] [facility]* Diagnosis Lumbar spondylosis Lumbosacral spondylosis without myelopathy Thoracic spine pain Pain in thoracic spine [facility] [place] [facility]* Diagnosis Rib pain Chest pain, unspecified [facility] [place] [facility]* Diagnosis Chronic midline low back pain with sciatica, sciatica laterality unspecified- Primary [facility] [place] [facility]* Diagnosis Insomnia, unspecified type [facility] [place] [facility]* Diagnosis Chronic midline low back pain with sciatica, sciatica laterality unspecified- Primary [facility] [place] [facility]* Diagnosis Lymphedema- Primary Other lymphedema documented [facility] [place] [facility]* Diagnosis Lymphedema- Primary Other lymphedema Lumbar spondylosis Lumbosacral spondylosis without myelopathy Thoracic spine pain Pain in thoracic spine Myofascial pain Mylagia and myositis, unspecified [facility] [place] [facility]* Diagnosis Bilateral leg edema Edema [facility] [place] [facility]* Diagnosis Lymphedema- Primary Other lymphedema documented [facility] [place] [facility]* Diagnosis Lumbar spondylosis- Primary Lumbosacral spondylosis without myelopathy documented [facility] [place] [facility]* Diagnosis Lymphedema- Primary Other lymphedema Lumbar spondylosis Lumbosacral spondylosis without myelopathy Lumbar spondylosis Lumbosacral spondylosis without myelopathy [facility] [place] [facility]* Diagnosis Lymphedema- Primary Other lymphedema Lumbar spondylosis Lumbosacral spondylosis without myelopathy Lumbar spondylosis Lumbosacral spondylosis without myelopathy documented [facility] [place] [facility] Diagnosis Onset Date Resolution Status Chronic acquired lymphedema chronic [facility] Work Phone: Evaluation note* Diagnosis Lumbar spondylosis Lumbosacral spondylosis without myelopathy Lumbar spondylosis Lumbosacral spondylosis without myelopathy [facility] Diagnosis Lumbar spondylosis- Primary Lumbosacral spondylosis without myelopathy Myofascial pain Mylagia and myositis, unspecified Other chronic pain Lumbar spondylosis Lumbosacral spondylosis without myelopathy [facility] [place] [facility]* Diagnosis Onset Date Resolution Status Chronic acquired lymphedema chronic Abdominal ascites acute Swelling of left lower extremity acute Chronic acquired lymphedema chronic [facility] Work Phone: Evaluation note* Diagnosis Lymphedema- Primary Other lymphedema Lumbar spondylosis Lumbosacral spondylosis without myelopathy [facility] Diagnosis Leg swelling- Primary Swelling of limb Shortness of breath Shortness of breath Abdominal distension Flatulence, eructation, and gas pain Function kidney decreased Unspecified disorder of kidney and ureter Lumbar spondylosis Lumbosacral spondylosis without myelopathy [facility] Diagnosis Abdominal distension Flatulence, eructation, and gas pain Lumbar spondylosis Lumbosacral spondylosis without myelopathy [facility] Diagnosis Lymphedema- Primary Other lymphedema Lumbar spondylosis Lumbosacral spondylosis without myelopathy [facility] Bilateral leg edema Edema Lumbar spondylosis Lumbosacral spondylosis without myelopathy [facility] Insomnia, unspecified type [facility] Diagnosis Lumbar spondylosis- Primary Lumbosacral spondylosis without myelopathy Myofascial pain Mylagia and myositis, unspecified [facility] Diagnosis Onset Date Resolution Status Chronic acquired lymphedema chronic Swelling of left lower extremity acute Chronic acquired lymphedema chronic Acute diastolic (congestive) heart failure acute Dyspnea on minimal exertion acute Essential (primary) hypertension chronic [facility] Work Phone: Evaluation note* Diagnosis Lumbar spondylosis- Primary Lumbosacral spondylosis without myelopathy Lumbar spondylosis Lumbosacral spondylosis without myelopathy [facility] Diagnosis Female stress incontinence- Primary Lumbar spondylosis Lumbosacral spondylosis without myelopathy [facility] [place] [facility]* Diagnosis Onset Date Resolution Status Chronic acquired lymphedema chronic Swelling of left lower extremity acute Chronic acquired lymphedema chronic Dyspnea on minimal exertion acute Essential (primary) hypertension chronic [facility] Work Phone: Evaluation note* Diagnosis Onset Date Resolution Status Chronic acquired lymphedema chronic Swelling of left lower extremity acute Chronic acquired lymphedema chronic Dyspnea on minimal exertion acute Essential (primary) hypertension chronic (HFpEF) heart failure with preserved ejection fraction chronic Essential (primary) hypertension [facility] Work Phone: Evaluation note* Diagnosis Insomnia, unspecified type [facility] [place] [facility]* Diagnosis C. difficile colitis- Primary Intestinal infection due to clostridium difficile Rectal bleeding Hemorrhage of rectum and anus Change in stool Nonspecific abnormal finding in stool contents Fall, initial encounter documented [facility] [place] [facility]* Diagnosis Onset Date Resolution Status (HFpEF) heart failure with preserved ejection fraction chronic Essential (primary) hypertension [facility] Work Phone: Evaluation note* Diagnosis Lumbar spondylosis- Primary Lumbosacral spondylosis without myelopathy Anxiety due to invasive procedure [facility] Diagnosis Dysuria- Primary Female stress incontinence Leg swelling Swelling of limb Chronic knee pain, unspecified laterality Chronic right-sided low back pain without sciatica Change in stool Nonspecific abnormal finding in stool contents documented [facility] [place] [facility]* Diagnosis Female stress incontinence- Primary Urge urinary incontinence Urge incontinence documented [facility] [place] [facility]* Diagnosis Lumbar spondylosis- Primary Lumbosacral spondylosis without myelopathy [facility]* Diagnosis Insomnia, unspecified type [facility] [place] [facility]* Diagnosis Chronic bilateral low back pain without sciatica- Primary Lumbar spondylosis Lumbosacral spondylosis without myelopathy [facility] Diagnosis Onset Date Resolution Status Chest pain acute (HFpEF) heart failure with preserved ejection fraction chronic Essential (primary) hypertension [facility] Work Phone: Evaluation note* Diagnosis Chronic bilateral low back pain without sciatica- Primary Lumbar spondylosis Lumbosacral spondylosis without myelopathy documented [facility] [place] [facility]* Diagnosis Lumbar spondylosis- Primary Lumbosacral spondylosis without myelopathy Chronic bilateral low back pain without sciatica [facility] Diagnosis Insomnia, unspecified type- Primary documented [facility] [place] [facility]* Diagnosis Lumbar spondylosis- Primary Lumbosacral spondylosis without myelopathy Myofascial pain Mylagia and myositis, unspecified [facility] [place] [facility]* Diagnosis Onset Date Resolution Status Chest pain acute (HFpEF) heart failure with preserved ejection fraction chronic Essential (primary) hypertension chronic (HFpEF) heart failure with preserved ejection fraction chronic [facility] Work Phone: Evaluation note* Diagnosis Rib pain Chest pain, unspecified [facility] [place] [facility]* Diagnosis Female stress incontinence- Primary Chronic right-sided low back pain without sciatica BENIGN HYPERTENSION(aka HTN) Essential hypertension, benign Hypothyroidism, acquired Unspecified hypothyroidism Insomnia, unspecified type Leg swelling Swelling of limb Decreased glomerular filtration rate (GFR) Chronic knee pain, unspecified laterality Acute pain of left shoulder [facility] [place] [facility]* Diagnosis Decreased glomerular filtration rate (GFR)- Primary documented [facility] [place] [facility]* Diagnosis Primary osteoarthritis of both shoulders- Primary Lumbar spondylosis Lumbosacral spondylosis without myelopathy Myofascial pain Mylagia and myositis, unspecified Rotator cuff impingement syndrome, unspecified laterality documented [facility] this [facility] [place] [facility]* Diagnosis Lumbar spondylosis Lumbosacral spondylosis without myelopathy Spinal stenosis of lumbar region without neurogenic claudication Spinal stenosis, lumbar region, without neurogenic claudication Thoracic spine pain Pain in thoracic spine Chronic midline thoracic back pain [facility] [place] [facility]* Diagnosis Closed fracture of base of fifth metatarsal bone of right foot at metaphyseal-diaphyseal junction, initial encounter [facility] Diagnosis Fall, initial encounter [facility] Diagnosis Primary osteoarthritis of both shoulders Rotator cuff impingement syndrome, unspecified laterality documented [facility] this [facility] [place] [facility]* Diagnosis Primary osteoarthritis of both shoulders- Primary [facility] [place] [facility]* Diagnosis Primary osteoarthritis of both shoulders- Primary [facility] [place] [facility]* Diagnosis Primary osteoarthritis of both shoulders- Primary [facility] [place] [facility]* Diagnosis Primary osteoarthritis of both shoulders- Primary [facility] [place] [facility]* Diagnosis 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 [facility] [place] [facility]* Diagnosis Onset Date Resolution Status Constipation acute Acute kidney injury superimp osed on chronic kidney disease [facility] Work Phone: Evaluation note* Diagnosis Onset Date Resolution Status Constipation acute Dyspnea on minimal exertion acute Fecal impaction in rectum ac [place] Acute kidney injury superimp osed on chronic kidney disease [facility] Work Phone: Evaluation note* Diagnosis Pleurodynia Painful respiration [facility] [place] [facility]* Diagnosis Leg swelling Swelling of limb documented [facility] [place] [facility]* Diagnosis Insomnia, unspecified type documented [facility] [place] [facility]* Diagnosis Primary osteoarthritis of both shoulders- Primary [facility] [place] [facility]* Diagnosis Female stress incontinence- Primary Chronic [...] constipation Unspecified constipation [facility] [place] [facility]* Diagnosis Primary osteoarthritis of both shoulders- Primary Lumbar spondylosis Lumbosacral spondylosis without myelopathy Myofascial pain Mylagia and myositis, unspecified Pleurodynia Painful respiration [facility] [place] [facility]* Diagnosis Insomnia, unspecified type- Primary documented [facility] [place] [facility]* Diagnosis Dizziness- Primary Dizziness and giddiness [...] Insomnia, unspecified type [facility] [place] [facility]* Diagnosis Leg swelling Swelling of limb documented [facility] [place] [facility]* Diagnosis Primary osteoarthritis of both shoulders- Primary [facility] [place] [facility]* Diagnosis 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 hyperplasia with atypia IUD (intrauterine device) in place Presence of intrauterine contraceptive device [facility] [place] [facility]* Diagnosis Insomnia, unspecified type [facility] [place] [facility]* Diagnosis Falls- Primary Unspecified fall Balance problem Other symptoms involving nervous and musculoskeletal systems [facility] [place] [facility]* Diagnosis Primary osteoarthritis of both shoulders- Primary Lumbar spondylosis Lumbosacral spondylosis without myelopathy documented [facility] [place] [facility]* Diagnosis Hypothyroidism, acquired- Primary Unspecified hypothyroidism documented [facility] [place] [facility]* Diagnosis Acute cough [facility] [place] [facility]* Diagnosis SOB (shortness of breath) Shortness of breath Rib pain on left side Chest pain, unspecified [facility] [place] [facility] Diagnosis BENIGN HYPERTENSION(aka HTN)- Primary Essential hypertension, benign Hyperlipidemia LDL goal <100 Other and unspecified hyperlipidemia Leg swelling Swelling of limb Balance problem Other symptoms involving nervous and musculoskeletal systems Female stress incontinence Hypothyroidism, acquired Unspecified hypothyroidism Insomnia, unspecified type CKD (chronic kidney disease) stage 4, GFR 15-29 ml/min (HCC) Chronic kidney disease, Stage IV (severe) Chronic shoulder pain, unspecified laterality Chronic right-sided low back pain without sciatica Chronic knee pain, unspecified laterality Encounter for immunization Need for other specified prophylactic vaccination against single bacterial disease documented in this encounter [facility] note* Diagnosis Insomnia, unspecified type [facility] [place] [facility] Diagnosis 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 [...] Unspecified essential hypertension [facility] Diagnosis Insomnia, unspecified type [facility] [place] [facility] Diagnosis BENIGN HYPERTENSION(aka HTN)- Primary Essential hypertension, benign Leg swelling Swelling of limb Chronic kidney disease, stage 4 (severe) ([facility]) Chronic obstructive pulmonary disease, unspecified COPD type [...] Insomnia, unspecified type [facility] [place] [facility] Diagnosis Lower respiratory infection- Primary Other diseases of respiratory system, not elsewhere classified documented [facility] [place] [facility]* Diagnosis Anemia in chronic kidney disease, [...] constipation Unspecified constipation [facility] [place] [facility]* Diagnosis Lower respiratory infection Other diseases of respiratory system, not elsewhere classified [facility] [place] [facility] Diagnosis Subacute cough- Primary Cough documented in this [facility] [place] [facility]* Diagnosis Subacute cough Cough [facility] [place] [facility] Diagnosis Subacute cough- Primary Cough Leg swelling Swelling of limb SOB (shortness of breath) Shortness of breath Lower respiratory infection Other diseases of respiratory system, not elsewhere classified [facility] Diagnosis BENIGN HYPERTENSION(aka HTN)- Primary Essential hypertension, benign Lumbar spondylosis Lumbosacral spondylosis without myelopathy Myofascial pain Mylagia and myositis, unspecified Hypothyroidism, acquired Unspecified hypothyroidism Anemia in chronic kidney disease, unspecified CKD stage CKD (chronic kidney disease) stage 4, GFR 15-29 ml/min (HCC) Chronic kidney disease, Stage IV (severe) Bilateral leg edema Edema [facility] Diagnosis BENIGN HYPERTENSION(aka HTN)- Primary Essential hypertension, benign Seizures (HCC) Other convulsions Hypothyroidism, acquired Unspecified hypothyroidism Renal failure, unspecified chronicity CKD (chronic kidney disease) stage 4, GFR 15-29 ml/min (HCC) Chronic kidney disease, Stage IV (severe) Insomnia, unspecified type Recurrent UTI (urinary tract infection) Urinary tract infection, site not specified Bilateral leg edema Edema [facility] Author Michelle Gallardo [facility] Note Date/Time September 28, 2024 8:47 pm [facility] Medical Records Department [address] [place] [id number] H&P Exam - Hospitalist 09/28/241999 MR#: [id number] Acct: [id number] Name: MARI LOPEZ Rep #:[id number] : 1940 84 From: Michelle Gallardo MD PCP: BROOKLYN Aguillon Status:ADM I N Location: [place] [address] HPI - General General Date of Admission: [...] HFpEF who presents to the [facility] ED on 09/28/2024 with history of generalized [...] will be administered dose low dose kayexelate. [facility] Medical History (Updated 09/28/24 @ 20:[address] Michelle Gallardo MD) PAF (paroxysmal atrial fibrillation) Wears glasses [...] bisacodyl 10 mg rectal suppository 10 mg SD X1 PRN Con stipation #1 ea 06/09/24 [...] % (Auto) 66.9, Lymph % (Auto) 20.1, [place] % (Auto) 8.7, Eos % (Auto) 3.6, [...] IMPRESSION: No obvious acute fracture. Reading Location: [facility] Brain CT 09/28/24 17:00 IMPRESSION: No acute intracranial process. Consider MR if symptoms persist. Reading Location: [facility] Knee X-Ray 09/28/24 17:05 IMPRESSION: No obvious acute fracture. Reading Location: [facility] Assessment & Plan Assessment/Plan (1) [...] HFpEF who presents to the [facility] ED on 09/28/2024 with history of generalized [...] 16 minutes. Charges/Coding Visit Charges Inpatient E&M: 88518 Init Hosp L3 Procedures Hospitalists Procedures: 66599 Advncd Care Plan 30 Min 09/28/242046 <Electronically signed by Michelle Gallardo MD> Cosigner Signature (if applicable): CC: BROOKLYN Orozco; Dr. Michelle Gallardo MD~ Signed [facility] Work Phone: Hospital Discharge instructions Additional Instructions X-ray right leg negative. Continue ice to help with burning. Jeancarlos wrap to help with compression. You have medication of oxycodone use at facility. Daily wound care. Follow-up with wound care clinic to make sure appropriate healing.[facility] Work Phone: Hospital Discharge instructionsAdditional Instructions Would recommend Zofran and ODT instead of Zofran tablets.[facility] Work Phone: Hospital Discharge instructionsAdditional Instructions Discharge home with friend 10/20/2024, [facility] PT/OT/SN. Wound Instructions Cleanse blisters to the right thigh donor site gently with soap and water, pat dry. apply hydrogel and Adaptic and cover with ABD pad, change BID and prn. Foam dressing to blisters right hip (rubs on attends). change every other day and prn. Apply Aquaphor to graft site RLE.[facility] Work Phone: Reason for referral (narrative)* Diagnostic Procedure Only (Routine) - Closed Specialty Diagnoses / Procedures Referred By Maryseac t Referred To Contact XR IMAGING Diagnoses SOB (shortness of breath) Rib pain on left side Procedures XR RIBS/CHEST 3V AP RIB/OBLS/CXR LEFT RADEX RIBS UNI W/POSTEROANT CH MINIMUM 3 VIEWS Lizy Capone MD [address] [place] [address] Xr Imaging Referral ID Status Reason Start Date Expiration Date V isits Requested Visits Authorized [id number] Closed Auto-Generate d Referral 07/16/2021 08/15/2022 1 [facility] - Authorized Specialty Diagnoses / Procedures Referred By Contac t Referred To Contact Physical Therapy Diagnoses Lumbar spondylosis Thoracic spine pain Myofascial pain Procedures CONSULT TO PHYSICAL THERAPY Avis Marrufo APRN.SAGGER [employer]KER [address] [place] [address] Referral ID Status Reason Start Date Expiration Date V isits Requested Visits Authorized [id number] Authorized 09/19/2021 12/18/2021 99 99 * Diagnostic Procedure Only (Routine) - Pending Review Specialty Diagnoses / Procedures Referred By Contac t Referred To Contact XR IMAGING Diagnoses Thoracic spine pain Procedures XR THORACIC LIMITED 2V AP/LAT RADEX SPINE THORACIC 2 VIEWS Avis Marrufo APRN.SAGGER MAKER [address] [place] [id number] Xr Imaging Referral ID Status Reason Start Date Expiration Date Visits Requested Visits Authorized [id number] Pending Review Auto-Generat ed Referral 09/19/2021 10/19/2022 1 1 * Diagnostic Procedure Only (Routine) - Pending Review Specialty Diagnoses / Procedures Referred By Contac t Referred To Contact XR IMAGING Diagnoses Lumbar spondylosis Procedures XR LUMBAR MOTION 4V AP/LAT/ FLEX/EXT RADEX SPINE LUMBOSACRAL MINIMUM 4 VIEWS Avis Marrufo APRN.SAGGER MAKER [address] [place] [address] Xr Imaging Referral ID Status Reason Start Date Expiration Date Visits Requested Visits Authorized [id number] Pending Review Auto-Generat ed Referral 09/19/2021 10/19/2022 1 1 [facility] for referral (narrative)* Diagnostic Procedure Only (Routine) - Closed Specialty Diagnoses / Procedures Referred By Contac t Referred To Contact XR IMAGING Diagnoses Thoracic spine pain Procedures XR THORACIC LIMITED 2V AP/LAT RADEX SPINE THORACIC 2 VIEWS Avis Marrufo EMPLOYMENT PROGRAM REPRESENTATIVE.SAGGER MAKER [address] [place] [address] Xr Imaging Referral ID Status Reason Start Date Expiration Date V isits Requested Visits Authorized [id number] Closed Auto-Generate d Referral 09/19/2021 10/19/2022 1 1 * Diagnostic Procedure Only (Routine) - Closed Specialty Diagnoses / Procedures Referred By Contac t Referred To Contact XR IMAGING Diagnoses Lumbar spondylosis Procedures XR LUMBAR MOTION 4V AP/LAT/ FLEX/EXT RADEX SPINE LUMBOSACRAL MINIMUM 4 VIEWS Avis Marrufo EMPLOYMENT PROGRAM REPRESENTATIVE.SAGGER MAKER [address] [place] [address] Xr Imaging Referral ID Status Reason Start Date Expiration Date V isits Requested Visits Authorized [id number] Closed Auto-Generate d Referral 09/19/2021 10/19/2022 1 1 [facility] for referral (narrative)* Diagnostic Procedure Only (Urgent) - Closed Specialty Diagnoses / Procedures Referred By Contac t Referred To Contact US IMAGING Diagnoses Abdominal distension Procedures US ABDOMEN COMPLETE US ABDOMINAL REAL TIME W/IMAGE DOCUMENTATION Miryam Orozco APRN.SAGGER MAKER [address] [place] [address] Us Imaging Referral ID Status Reason Start Date Expiration Date V isits Requested Visits Authorized [id number] Closed Auto-Generate d Referral 01/02/2022 02/01/2023 1 1 [facility] for referral (narrative)* Diagnostic Procedure Only (Routine) - Closed Specialty Diagnoses / Procedures Referred By Contac t Referred To Contact XR IMAGING Diagnoses Fall, initial encounter Procedures XR ELBOW SPECIAL VIEWS AP/LAT/OTHER LEFT RADEX ELBOW COMPLETE MINIMUM 3 VIEWS Jae Cagle MD [address] [place] [address] Xr Imaging Referral ID Status Reason Start Date Expiration Date V isits Requested Visits Authorized [id number] Closed Auto-Generate d Referral 05/13/2022 06/12/2023 1 1 * Diagnostic Procedure Only (Routine) - Closed Specialty Diagnoses / Procedures Referred By Contac t Referred To Contact XR IMAGING Diagnoses Fall, initial encounter Procedures XR HIP GENERAL 3V PELV/AP/LAT RIGHT RADEX HIP UNILATERAL WITH PELVIS 2-3 VIEWS Jae Cagle MD [address] [place] [address] Xr Imaging Referral ID Status Reason Start Date Expiration Date V isits Requested Visits Authorized [id number] Closed Auto-Generate d Referral 05/13/2022 06/12/2023 1 1 [facility] for referral (narrative)* Outpatient Procedure (Routine) - Pending Review Specialty Diagnoses / Procedures Referred By Kallie t Referred To Contact [facility] Diagnoses Female stress incontinence Urge urinary incontinence Procedures URODYNAMICS WHI COMPLX CYSTOMETRO W/VOID PRESS&URETHRAL PROFILE Ragini Gomes APRN.CNP [address] [place] [address] x2 [facility] [address] [place] [address] Referral ID Status Reason Start Date Expiration Date Visits Requested Visits Authorized [id number] Pending Review Auto-Generat ed Referral 06/30/2022 06/30/2023 1 1 [facility] for referral (narrative)* Diagnostic Procedure Only (Routine) - Closed Specialty Diagnoses / Procedures Referred By Kallie t Referred To Contact XR IMAGING Diagnoses Primary osteoarthritis of both shoulders Rotator cuff impingement syndrome, unspecified laterality Procedures XR SHOULDER [id number] AP/TRUE AP RIGHT RADEX SHOULDER COMPLETE MINIMUM 2 VIEWS Roque Delgado MD [address] [address] [place] [address] Referral ID Status Reason Start Date Expiration Date V isits Requested Visits Authorized [id number] Closed Auto-Generate d Referral 01/15/2023 02/14/2024 1 1 * Diagnostic Procedure Only (Routine) - Closed Specialty Diagnoses / Procedures Referred By Contac t Referred To Contact XR IMAGING Diagnoses Primary osteoarthritis of both shoulders Rotator cuff impingement syndrome, unspecified laterality Procedures XR SHOULDER LIMITED 2V AP/TRUE AP LEFT RADEX SHOULDER COMPLETE MINIMUM 2 VIEWS Roque Delgado MD [address] [place] [address] [place] [address] Referral ID Status Reason Start Date Expiration Date V isits Requested Visits Authorized [id number] Closed Auto-Generate d Referral 01/15/2023 02/14/2024 1 1 [facility] for referral (narrative)* Diagnostic Procedure Only (Routine) - Closed Specialty Diagnoses / Procedures Referred By Contac t Referred To Contact XR IMAGING Diagnoses Closed fracture of base of fifth metatarsal bone of right foot at metaphyseal-diaphyseal junction, initial encounter Procedures XR FOOT GENERAL 3V AP/LAT/OBL RIGHT RADEX FOOT COMPLETE MINIMUM 3 VIEWS Roque Delgado MD [address] [facility] [address] [place] [address] [place] [address] Referral ID Status Reason Start Date Expiration Date V isits Requested Visits Authorized [id number] Closed Auto-Generate d Referral 07/31/2022 08/30/2023 1 1 [facility] for referral (narrative)* Diagnostic Procedure Only (Routine) - Closed Specialty Diagnoses / Procedures Referred By Contac t Referred To Contact XR IMAGING Diagnoses Fall, initial encounter Procedures XR ELBOW SPECIAL VIEWS AP/LAT/OTHER LEFT RADEX ELBOW COMPLETE MINIMUM 3 VIEWS Jae Cagle MD [address] [place] [address] [place] [address] Referral ID Status Reason Start Date Expiration Date V isits Requested Visits Authorized [id number] Closed Auto-Generate d Referral 05/13/2022 06/12/2023 1 1 * Diagnostic Procedure Only (Routine) - Closed Specialty Diagnoses / Procedures Referred By Maryseac t Referred To Contact XR IMAGING Diagnoses Fall, initial encounter Procedures XR HIP GENERAL 3V PELV/AP/LAT RIGHT RADEX HIP UNILATERAL WITH PELVIS 2-3 VIEWS Jae Cagle MD [address] [facility] [place] [address] [place] [address] Referral ID Status Reason Start Date Expiration Date V isits Requested Visits Authorized [id number] Closed Auto-Generate d Referral 05/13/2022 06/12/2023 1 1 [facility] for referral (narrative)* Diagnostic Procedure Only (Routine) - Closed Specialty Diagnoses / Procedures Referred By Kallie alejandra Referred To Contact XR IMAGING Diagnoses Primary osteoarthritis of both shoulders Rotator cuff impingement syndrome, unspecified laterality Procedures XR SHOULDER [id number] AP/TRUE AP RIGHT RADEX SHOULDER COMPLETE MINIMUM 2 VIEWS Roque Delgado MD [address] [address] [place] [address] Referral ID Status Reason Start Date Expiration Date V isits Requested Visits Authorized [id number] Closed Auto-Generate d Referral 01/15/2023 02/14/2024 1 1 * Diagnostic Procedure Only (Routine) - Closed Specialty Diagnoses / Procedures Referred By Kallie alejandra Referred To Contact XR IMAGING Diagnoses Primary osteoarthritis of both shoulders Rotator cuff impingement syndrome, unspecified laterality Procedures XR SHOULDER LIMITED 2V AP/TRUE AP LEFT RADEX SHOULDER COMPLETE MINIMUM 2 VIEWS Roque Delgado MD [address] [place] [address] [place] [address] Referral ID Status Reason Start Date Expiration Date V isits Requested Visits Authorized [id number] Closed Auto-Generate d Referral 01/15/2023 02/14/2024 1 1 [facility] for referral (narrative)* Diagnostic Procedure Only (Routine) - Closed Specialty Diagnoses / Procedures Referred By Contac t Referred To Contact XR IMAGING Diagnoses SOB (shortness of breath) Rib pain on left side Procedures XR RIBS/CHEST 3V AP RIB/OBLS/CXR LEFT RADEX RIBS UNI W/POSTEROANT CH MINIMUM 3 VIEWS Lizy Capone MD [address] [place] [address] [place] [address] Referral ID Status Reason Start Date Expiration Date V isits Requested Visits Authorized [id number] Closed Auto-Generate d Referral 07/16/2021 08/15/2022 1 1 [facility] for visit Narrative* Diagnostic Procedure Only (Routine) - Closed Specialty Diagnoses / Procedures Referred By Contac t Referred To Contact XR IMAGING Diagnoses Thoracic spine pain Procedures XR THORACIC LIMITED 2V AP/LAT RADEX SPINE THORACIC 2 VIEWS Avis Marrufo, EMPLOYMENT PROGRAM REPRESENTATIVE.SAGGER MAKER [address] [place] [address] Xr Imaging Referral ID Status Reason Start Date Expiration Date V isits Requested Visits Authorized [id number] Closed Auto-Generate d Referral 09/19/2021 10/19/2022 1 1 [facility] for visit Narrative* Diagnostic Procedure Only (Urgent) - Closed Specialty Diagnoses / Procedures Referred By Contac t Referred To Contact US IMAGING Diagnoses Abdominal distension Procedures US ABDOMEN COMPLETE US ABDOMINAL REAL TIME W/IMAGE DOCUMENTATION Miryam Orozco, NANCI.SAGGER MAKER [address] [place] [address] Us Imaging Referral ID Status Reason Start Date Expiration Date V isits Requested Visits Authorized [id number] Closed Auto-Generate d Referral 01/02/2022 02/01/2023 1 1 [facility] for visit Narrative* Diagnostic Procedure Only (Routine) - Closed Specialty Diagnoses / Procedures Referred By Contac t Referred To Contact XR IMAGING Diagnoses Closed fracture of base of fifth metatarsal bone of right foot at metaphyseal-diaphyseal junction, initial encounter Procedures XR FOOT GENERAL 3V AP/LAT/OBL RIGHT RADEX FOOT COMPLETE MINIMUM 3 VIEWS Roque Delgado MD [address] [employer] [address] [address] [place] [address] Referral ID Status Reason Start Date Expiration Date V isits Requested Visits Authorized [id number] Closed Auto-Generate d Referral 07/31/2022 08/30/2023 1 1 [facility] for visit Narrative* Diagnostic Procedure Only (Routine) - Closed Specialty Diagnoses / Procedures Referred By Contac t Referred To Contact XR IMAGING Diagnoses Fall, initial encounter Procedures XR ELBOW SPECIAL VIEWS AP/LAT/OTHER LEFT RADEX ELBOW COMPLETE MINIMUM 3 VIEWS Jae Cagle MD [address] [place] [address] [place] [address] Referral ID Status Reason Start Date Expiration Date V isits Requested Visits Authorized [id number] Closed Auto-Generate d Referral 05/13/2022 06/12/2023 1 1 [facility] for visit Narrative* Diagnostic Procedure Only (Routine) - Closed Specialty Diagnoses / Procedures Referred By Contac t Referred To Contact XR IMAGING Diagnoses Primary osteoarthritis of both shoulders Rotator cuff impingement syndrome, unspecified laterality Procedures XR SHOULDER [id number] AP/TRUE AP RIGHT RADEX SHOULDER COMPLETE MINIMUM 2 VIEWS Roque Delgado MD [address] [employer] [address] [address] [place] [address] Referral ID Status Reason Start Date Expiration Date V isits Requested Visits Authorized [id number] Closed Auto-Generate d Referral 01/15/2023 02/14/2024 1 1 [facility] for visit Narrative* Diagnostic Procedure Only (Routine) - Closed Specialty Diagnoses / Procedures Referred By Contac t Referred To Contact XR IMAGING Diagnoses SOB (shortness of breath) Rib pain on left side Procedures XR RIBS/CHEST 3V AP RIB/OBLS/CXR LEFT RADEX RIBS UNI W/POSTEROANT CH MINIMUM 3 VIEWS Lizy Capone MD [address] [place] [address] [place] [address] Referral ID Status Reason Start Date Expiration Date V isits Requested Visits Authorized [id number] Closed Auto-Generate d Referral 07/16/2021 08/15/2022 1 1 [facility] for visit Narrative* Auth/Cert Specialty Diagnoses / Procedures Referred By Contac t Referred To Contact Diagnoses status Kindra Gannon MD [address] [place] [address] Phone: tel: fax: [facility] [address] [place] [address] Referral ID Status Reason Start Date Expiration Date Visits Re quested Visits Authorized [id number] 1 1 [facility] Advance Directives No Advanced Directives Records FoundDocuments on File Type Date Recorded 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 Advance Directive(s) 12/23/2016 7:30 PM Advance Directive(s) 05/22/2006 12:00 AM Advance Directive(s) 05/21/2006 12:00 AM Documents on File Type Date Recorded 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 Advance Directive(s) 12/23/2016 7:30 PM Advance Directive(s) 05/22/2006 12:00 AM Advance Directive(s) 05/21/2006 12:00 AM Advance Directive Response Recorded Date/ Time Advance Directives Yes April 15, 2016 10:57am Living Will Yes December 31, 2017 2:02pm Power of Truck And Transport Mechanic Yes December 2:02pm Documents on File Type Date Recorded 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 Advance Directive(s) 05/22/2006 Advance Directive(s) 05/21/2006 Documents on File Type Date Recorded 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 Advance Directive(s) 05/22/2006 Advance Directive(s) 05/21/2006 Advance Directive Response Recorded Date/ Time Advance Directives Yes December 7:36am Living Will Yes December 26, 2021 7:36am Power of Truck And Transport Mechanic Yes December 7:36am Advance Directive Response Recorded Date/ Time Advance Directives Yes December 6:36am Living Will Yes December 26, 2021 6:36am Power of Truck And Transport Mechanic Yes December 6:36am Advance Directive Response Recorded Date/ Time Advance Directives on File Yes August 01, 2022 7:31am Name of Medical Power of Truck And Transport Mechanic Connor Castro August 01, 2022 7:31am Advance Directives Yes August 01 023 7:31am Living Will Yes August 01, 2022 7:31am Power of Truck And Transport Mechanic Yes August 01 7:31am Advance Directive Response Recorded Date/ Time Advance Directives Yes August 01 023 6:31am Living Will Yes June 07, 2023 9:40pm Power of Truck And Transport Mechanic Yes June 06 9:40pm Name of Medical Power of Truck And Transport Mechanic alex vishal June 07, 2023 9:40pm Advance Directive Response Recorded Date/ Time Name of Medical Power of Truck And Transport Mechanic gonzalo rod June 08, 2023 1:28am Advance Directives Yes August 01 023 6:31am Living Will Yes June 08, 2023 1:28am Power of Truck And Transport Mechanic Yes June 07 1:28am Documents on File Type Date Recorded 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 No May 01, 2024 5:37pm Living Will Yes May 19 025 4:09pm Do you have a Healthcare Pow er of Truck And Transport Mechanic? Yes May 19, 2024 4:09pm Name of Medical Power of Truck And Transport Mechanic Katie stewart May 19, 2024 4:09pm Advance Directives Yes August 01 023 7:31am Advance Directive Response Recorded Date/ Time Living Will No May 01 5:37pm Do you have a Healthcare Pow er of Truck And Transport Mechanic? No May 01, 2024 5:37pm Living Will Yes May 19, 2 025 4:09pm Do you have a Healthcare Pow er of Truck And Transport Mechanic? Yes May 19, 2024 4:09pm Name of Medical Power of Truck And Transport Mechanic Katie stewart May 19, 2024 4:09pm Do you have a Healthcare Pow er of Truck And Transport Mechanic? Yes July 29, 2024 3:00pm Name of Medical Power of Truck And Transport Mechanic Gonzalo July 29, 2024 3:00pm Advance Directives Yes August 01, 2 023 7:31am Advance Directive Response Recorded Date/ Time Living Will Yes May 19, 2 025 4:09pm Do you have a Healthcare Pow er of Truck And Transport Mechanic? Yes May 19, 2024 4:09pm Name of Medical Power of Truck And Transport Mechanic Katie Diazadebayo pat May 19, 2024 4:09pm Do you have a Healthcare Pow er of Truck And Transport Mechanic? Yes July 29, 2024 3:00pm Name of Medical Power of Truck And Transport Mechanic Gonzalo July 29, 2024 3:00pm Advance Directives Yes August 01, 2 023 7:31am Advance Directive Response Recorded Date/ Time Do you have a Healthcare Pow er of Truck And Transport Mechanic? Yes September 02, 2024 11:04am Living Will Yes May 19 025 4:09pm Do you have a Healthcare Pow er of Truck And Transport Mechanic? Yes May 19, 2024 4:09pm Name of Medical Power of Truck And Transport Mechanic Katie stewart May 19, 2024 4:09pm Do you have a Healthcare Pow er of Truck And Transport Mechanic? Yes July 29, 2024 3:00pm Name of Medical Power of Truck And Transport Mechanic Gonzalo July 29, 2024 3:00pm Advance Directives Yes August 01, 2 023 7:31am Advance Directive Response Recorded Date/ Time Do you have a Healthcare Pow er of Truck And Transport Mechanic? Yes September 02, 2024 11:04am Do you have a Healthcare Pow er of Truck And Transport Mechanic? No September 28, 2024 3:13pm Living Will Yes May 19, 2 025 4:09pm Do you have a Healthcare Pow er of Truck And Transport Mechanic? Yes May 19, 2024 4:09pm Name of Medical Power of Truck And Transport Mechanic Katie stewart May 19, 2024 4:09pm Do you have a Healthcare Pow er of Truck And Transport Mechanic? Yes July 29, 2024 3:00pm Name of Medical Power of Truck And Transport Mechanic Gonzalo July 29, 2024 3:00pm Advance Directives Yes August 01, 2 023 7:31am Advance Directive Response Recorded Date/ Time Do you have a Healthcare Pow er of Truck And Transport Mechanic? Yes September 02, 2024 11:04am Do you have a Healthcare Pow er of Truck And Transport Mechanic? Yes September 28, 2024 10:04pm Name of Medical Power of Truck And Transport Mechanic Cayla Sawyer (Friend) September 28, 2024 10:04pm Living Will Yes May 19, 025 4:09pm Do you have a Healthcare Pow er of Truck And Transport Mechanic? Yes May 19, 2024 4:09pm Name of Medical Power of Truck And Transport Mechanic Katie stewart May 19, 2024 4:09pm Do you have a Healthcare Pow er of Truck And Transport Mechanic? Yes July 29, 2024 3:00pm Name of Medical Power of Truck And Transport Mechanic Gonzalo July 29, 2024 3:00pm Advance Directives Yes August 01, 2 023 7:31am Advance Directive Response Recorded Date/ Time Do you have a Healthcare Pow er of Truck And Transport Mechanic? Yes September 02, 2024 11:04am Do you have a Healthcare Pow er of Truck And Transport Mechanic? Yes September 28, 2024 10:04pm Name of Medical Power of Truck And Transport Mechanic Cayla Sawyer (Friend) September 28, 2024 10:04pm Do you have a Healthcare Pow er of Truck And Transport Mechanic? Yes October 05, 2024 6:53pm Name of Medical Power of Truck And Transport Mechanic keven Collazo on October 05, 2024 6:53pm Do you have a Healthcare Pow er of Truck And Transport Mechanic? Yes October 12, 2024 2:03pm Do you have a Healthcare Pow er of Truck And Transport Mechanic? Yes July 29, 2024 3:00pm Name of Medical Power of Truck And Transport Mechanic Gonzalo July 29, 2024 3:00pm Advance Directives Yes August 01, 2 023 7:31am Advance Directive Response Recorded Date/ Time Do you have a Healthcare Pow er of Truck And Transport Mechanic? Yes September 02, 2024 11:04am Do you have a Healthcare Pow er of Truck And Transport Mechanic? Yes September 28, 2024 10:04pm Name of Medical Power of Truck And Transport Mechanic Cayla Sawyer (Friend) September 28, 2024 10:04pm Do you have a Healthcare Pow er of Truck And Transport Mechanic? Yes October 05, 2024 6:53pm Name of Medical Power of Truck And Transport Mechanic Gonzalo Lopez, son October 05, 2024 6:53pm Do you have a Healthcare Pow er of Truck And Transport Mechanic? Yes October 12, 2024 2:03pm Do you have a Healthcare Pow er of Truck And Transport Mechanic? Yes October 26, 2024 10:10am Name of Medical Power of Truck And Transport Mechanic stephanie sawyer- friend and son October 26, 2024 10:10am Do you have a Healthcare Pow er of Truck And Transport Mechanic? Yes July 29, 2024 3:00pm Name of Medical Power of Truck And Transport Mechanic Gonzalo July 29, 2024 3:00pm Advance Directives Yes August 01, 023 7:31am Reason for Referral Specialty Diagnoses / Procedures Referred By Contac t Referred To Contact CT IMAGING Diagnoses Left upper quadrant abdominal pain Procedures CT ABD/PEL WO IVCON CT ABD & PEL[place] [address] [place] [id number] Imaging Referral ID Status Reason Start Date Expiration Date Visits Requested Visits Authorized [id number] Authorized Auto-Generat ed Referral 07/18/2021 08/17/2022 1 1 Referral ID Status Reason Start Date Expiration Date V isits Requested Visits Authorized [id number] Closed Auto-Generate d Referral 07/18/2021 08/17/2022 1 1 Specialty Diagnoses / Procedures Referred By Contac t Referred To Contact Pain Management Diagnoses Rib pain on left side Procedures CONSULT TO PAIN MGT OFFICE/OUTPATIENT [facility] 60-74 MINUTES Lizy Capone MD [address] [place] [address] Referral ID Status Reason Start Date Expiration Date Visits Requested Visits Authorized [id number] Authorized PCP Requested Referral 08/01/2021 08/01/2022 1 1 Specialty Diagnoses / Procedures Referred By Contac t Referred To Contact [facility] Diagnoses Lymphedema Procedures CONSULT TO LYMPHEDEMA THERAPY OFFICE/OUTPATIENT [facility] 60-74 MINUTES Lizy Capone MD [address] [place] [address] [facility] [address] [place] [address] Referral ID Status Reason Start Date Expiration Date Visits Requested Visits Authorized [id number] Authorized Auto-Generat ed Referral 11/13/2021 11/13/2022 99 99 Specialty Diagnoses / Procedures Referred By Contac t Referred To Contact [facility] Diagnoses Lymphedema Procedures CONSULT TO PHYSICAL THERAPY PHYSICAL THERAPY EVALUATION HIGH COMPLEX 45 MINS Lizy Capone MD [address] [place] [address] [facility] [address] [place] [address] Referral ID Status Reason Start Date Expiration Date Visits Requested Visits Authorized [id number] Authorized PCP Requested Referral Auto-Generate d Referral 11/13/2021 11/13/2022 99 99 Specialty Diagnoses / Procedures Referred By Contac t Referred To Contact Nephrology Diagnoses Function kidney decreased Procedures CONSULT TO NEPHROLOGY OFFICE/OUTPATIENT [facility] 60-74 MINUTES Miryam Orozco APRN.[employer]GER [employer]KER [address] [place] [address] Referral ID Status Reason Start Date Expiration Date Visits Requested Visits Authorized [id number] Authorized PCP Requested Referral 01/02/2022 01/02/2023 1 1 Specialty Diagnoses / Procedures Referred By Contac t Referred To Contact US IMAGING Diagnoses Abdominal distension Procedures US ABDOMEN COMPLETE US ABDOMINAL REAL TIME W/IMAGE DOCUMENTATION Miryam Orozco APRN.SAGGER MAKER [address] [place] [address] Us Imaging Referral ID Status Reason Start Date Expiration Date Visits Requested Visits Authorized [id number] Authorized Auto-Generat ed Referral 01/02/2022 02/01/2023 1 1 Specialty Diagnoses / Procedures Referred By Contac t Referred To Contact Urology Diagnoses Female stress incontinence Procedures CONSULT TO UROLOGY OFFICE/OUTPATIENT [facility] MDM 60-74 MINUTES Miryam Orozco APRN.SAGGER MAKER [address] [place] [address] Referral ID Status Reason Start Date Expiration Date Visits Requested Visits Authorized [id number] Authorized PCP Requested Referral 06/26/2022 06/26/2023 1 1 Specialty Diagnoses / Procedures Referred By Contac t Referred To Contact Nephrology Diagnoses Decreased glomerular filtration rate (GFR) Procedures CONSULT TO NEPHROLOGY OFFICE/OUTPATIENT NEW [facility] 60-74 MINUTES Miryam Orozco, EMPLOYMENT PROGRAM REPRESENTATIVE.SAGGER MAKER [address] [place] [address] Referral ID Status Reason Start Date Expiration Date Visits Requested Visits Authorized [id number] Authorized PCP Requested Referral 12/24/2022 12/24/2023 1 1 Specialty Diagnoses / Procedures Referred By Contac t Referred To Contact MR IMAGING Diagnoses Thoracic spine pain Chronic midline thoracic back pain Procedures MRI THORACIC SPINE WO IVCON MRI SPINAL CANAL THORACIC W/O CONTRAST MATRL Avis Marrufo, EMPLOYMENT PROGRAM REPRESENTATIVE.SAGGER MAKER [address] [place] [address] [place] [address] Referral ID Status Reason Start Date Expiration Date V isits Requested Visits Authorized [id number] Closed Auto-Generate d Referral 04/03/2022 05/03/2023 1 1 Specialty Diagnoses / Procedures Referred By Contac t Referred To Contact MR IMAGING Diagnoses Lumbar spondylosis Spinal stenosis of lumbar region without neurogenic claudication Procedures MRI LUMBAR SPINE WO IVCON MRI SPINAL CANAL LUMBAR W/O CONTRAST MATERIAL Avis Marrufo, EMPLOYMENT PROGRAM REPRESENTATIVE.SAGGER MAKER [address] [place] [address] [place] [address] Referral ID Status Reason Start Date Expiration Date V isits Requested Visits Authorized [id number] Closed Auto-Generate d Referral 04/03/2022 05/03/2023 1 1 Specialty Diagnoses / Procedures Referred By Contac t Referred To Contact [facility] Diagnoses Falls Balance problem Procedures CONSULT TO PHYSICAL THERAPY PHYSICAL THERAPY EVALUATION HIGH COMPLEX 45 MINS Miryam Orozco, EMPLOYMENT PROGRAM REPRESENTATIVE.SAGGER MAKER [address] [place] [address] [facility] [address] [place] [address] Referral ID Status Reason Start Date Expiration Date Visits Requested Visits Authorized [id number] Authorized PCP Requested Referral Auto-Generate d Referral 12/14/2023 12/13/2024 99 99 Specialty Diagnoses / Procedures Referred By Kallie alejandra Referred To Contact Orthopedics Diagnoses Primary osteoarthritis of both shoulders Procedures CONSULT TO ORTHOPAEDICS OFFICE/OUTPATIENT [facility] 60 MINUTES Roque Delgado MD [address] [facility] [address] [place] [address] Referral ID Status Reason Start Date Expiration Date Visits Requested Visits Authorized [id number] Authorized PCP Requested Referral 12/17/2023 12/16/2024 1 [...] Complaint INT LABS Amb Documentation 2 ORDERING DRS/DR JACKSON E ORDER 6 M FU URINE SAMPLE DUE AROUND DATE LISTED PER ORDER Reason for Visit (HFpEF) heart failur e with preserved ejection fraction Essential (primary) hypertension Chief Complaint 2 ORDERING DRS/ E ORDER 6 M FU URINE SAMPLE [...] HFPEF CP, HFPEF 3 m fu W 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 PLANER FEEDER Reason for Visit Chest pain (HFpEF) heart [...] 2024 5:00am HEMATOMA August 12, 2024 1:02pm RLEMarco LOMAX REFERRED August 15, 2024 8: 41am LABWORK August 16, 2024 5:00a m LABWORK August 18, 2024 5:00a m LAB WORK August 22, 2024 4:00a m RLEMarco LOMAX REFERRED August 22, 2024 11 :46am [...] 2024 7:11pm Acute on chronic anemia May 18 7:11pm Acute hyperkalemia May 18, 2024 7:11pm [...] LOMAX REFERRED September 19, 2024 2 :00pm RLGabe LOMAX REFERRED September 20, 2024 9 :02am [...] 2024 7:11pm Acute on chronic anemia May 18 025 7:11pm Acute hyperkalemia May 18, 2024 [...] JOSE (acute kidney injury) September 28 8:00pm Chief Complaint Admit Date STATUS EPILEPTICUS May 18, 2024 7:11pm STATUS EPILEPTICUS June 06, 2024 10:2 7am [...] 2024 5:00am HEMATOMA August 12, 2024 1:02pm RLEMarco LOMAX REFERRED August 15, 2024 8: 41am [...] LOMAX REFERRED September 19, 2024 2 :00pm RLGabe LOMAX REFERRED September 20, 2024 9 :02am ENCEPHALOPATHY, JOSE ON CKD, HYPERKALEMIA September 28, 2024 8:00pm ENCEPHALOPATHY, JOSE ON CKD, HYPERKALEMIA September 29, 2024 7:52am ENCEPHALOPATHY, JOSE ON CKD, HYPERKALEMIA September 30, 2024 8:25am ENCEPHALOPATHY, JOSE ON CKD, HYPERKALEMIA October 01, 2024 10:30am ENCEPHALOPATHY, JOSE ON CKD, HYPERKALEMIA October 02, 2024 1:11pm ENCEPHALOPATHY, JOSE ON CKD, HYPERKALEMIA October 03, 2024 7:51am Reason for Visit Admit Date Chronic renal [...] JOSE (acute kidney injury) September 28 8:00pm Generalized weakness September 28, 2024 8:0 0pm Hyperkalemia September 28, 2024 8:00 pm Left knee pain September 28, 2024 8:00 pm Metabolic acidosis September 28, 2024 8:00 pm Toxic metabolic encephalopathy September 8:00pm Tremulousness September 28, 2024 8:00 pm UTI (urinary tract infection) September 28, 2024 8:00pm Encephalopathy September 28, 2024 8:00 pm Chief Complaint Admit Date ADMISSION EXAM June 14, 2024 1:2 3pm [...] LOMAX REFERRED September 19, 2024 2 :00pm RLGabe LOMAX REFERRED September 20, 2024 9 :02am ENCEPHALOPATHY, JOSE ON CKD, HYPERKALEMIA September 28, 2024 8:00pm ENCEPHALOPATHY, JOSE ON CKD, HYPERKALEMIA September 29, 2024 7:52am ENCEPHALOPATHY, JOSE ON CKD, HYPERKALEMIA September 30, 2024 8:25am ENCEPHALOPATHY, JOSE ON CKD, HYPERKALEMIA October 01, 2024 10:30am ENCEPHALOPATHY, JOSE ON CKD, HYPERKALEMIA October 02, 2024 1:11pm ENCEPHALOPATHY, JOSE ON CKD, HYPERKALEMIA October 03, 2024 7:51am ENCEPHALOPATHY, JOSE ON CKD, HYPERKALEMIA October 04, 2024 11:06am ENCEPHALOPATHY/JOSE ON CKD & HYPERKALEMIA October 04, 2024 2:29pm RLE- DR LOMAX REFERRED October 10, 2024 1: 41pm RLE- DR LOMAX REFERRED October 10, 2024 3: 00pm SWELLING October 11, 2024 9:44a m n/v October 12, 2024 1:34p m Reason for Visit Admit Date Hematoma of right lower leg August 12 1:02pm Wound of right lower extremity August 12, 2024 1:02pm Wound of right lower extremity September 01, 2024 2:45pm Seizure disorder September 05, 2024 8:38a m Wound of right lower extremity September 06, 2024 7:22am S/P flap graft September 19, 2024 2:00 pm JOSE (acute kidney injury) September 28 8:00pm Generalized weakness September 28, 2024 8:0 0pm Left knee pain September 28, 2024 8:00 pm Encephalopathy September 28, 2024 8:00 pm Hyperkalemia September 28, 2024 8:00 pm Metabolic acidosis September 28, 2024 8:00 pm Toxic metabolic encephalopathy September 8:00pm Tremulousness September 28, 2024 8:00 pm UTI (urinary tract infection) September 28, 2024 8:00pm (HFpEF) heart failure with preserved eje ction fraction October 04, 2024 2:29pm Appetite loss October 04, 2024 2:29p m Atrial fibrillation October 04, 2024 2:29p m Bilateral knee pain October 04, 2024 2:29p m BMI 45.0-49.9, adult October 04, 2024 2:29 pm Coronary artery disease October 04, 2024 2 :29pm Debility October 04, 2024 2:29p m DVT (deep venous thrombosis) October 04, 2:29pm Essential (primary) hypertension October 2:29pm GERD (gastroesophageal reflux disease) J wilbert 2024 2:29pm Hyperlipidemia October 04, 2024 2:29p m Hypothyroidism October 04, 2024 2:29p m Insomnia October 04, 2024 2:29p m Iron deficiency anemia October 04, 2024 2: 29pm Left knee pain October 04, 2024 2:29p m Lymphedema October 04, 2024 2:29p m Obstructive sleep apnea October 04, 2024 2 :29pm Hyperkalemia October 04, 2024 2:29p m Metabolic acidosis October 04, 2024 2:29p m Seizure disorder October 04, 2024 2:29p m Toxic metabolic encephalopathy October 04, 2024 2:29pm Tremulousness October 04, 2024 2:29p m UTI (urinary tract infection) October 04, 2024 2:29pm S/P flap graft October 10, 2024 1:41p m Wound of right lower extremity October 10, 2024 1:41pm Chief Complaint Admit Date LABWORK June 20, 2024 5:0 0am NEW [...] LAB WORK August 22, 2024 4:00a m RLEMarco LOMAX REFERRED August 22, 2024 11 :46am [...] ON CKD, HYPERKALEMIA September 28, 2024 8:00pm ENCEPHALOPATHY, JOSE ON CKD, HYPERKALEMIA September 29, 2024 7:52am ENCEPHALOPATHY, JOSE ON CKD, HYPERKALEMIA September 30, 2024 8:25am ENCEPHALOPATHY, JOSE ON CKD, HYPERKALEMIA October 01, 2024 10:30am ENCEPHALOPATHY, JOSE ON CKD, HYPERKALEMIA October 02, 2024 1:11pm ENCEPHALOPATHY, JOSE ON CKD, HYPERKALEMIA October 03, 2024 7:51am ENCEPHALOPATHY, JOSE ON CKD, HYPERKALEMIA October 04, 2024 11:06am ENCEPHALOPATHY/JOSE ON CKD & HYPERKALEMIA October 04, 2024 2:29pm RLGabe LOMAX REFERRED October 10, 2024 1: 41pm MARCOS LOMAX REFERRED October 10, 2024 3: 00pm SWELLING October 11, 2024 9:44a m n/v October 12, 2024 1:34p m Reason for Visit Admit Date Hematoma of right lower leg August 12 1:02pm Wound of right lower extremity August 12, 2024 1:02pm Wound of right lower extremity September 01, 2024 2:45pm Seizure disorder September 05, 2024 8:38a m Wound of right lower extremity September 06, 2024 7:22am S/P flap graft September 19, 2024 2:00 pm JOSE (acute kidney injury) September 28 8:00pm Generalized weakness September 28, 2024 8:0 0pm Left knee pain September 28, 2024 8:00 pm Encephalopathy September 28, 2024 8:00 pm Hyperkalemia September 28, 2024 8:00 pm Metabolic acidosis September 28, 2024 8:00 pm Toxic metabolic encephalopathy September 8:00pm Tremulousness September 28, 2024 8:00 pm UTI (urinary tract infection) September 28, 2024 8:00pm (HFpEF) heart failure with preserved eje ction fraction October 04, 2024 2:29pm Appetite loss October 04, 2024 2:29p m Atrial fibrillation October 04, 2024 2:29p m Bilateral knee pain October 04, 2024 2:29p m BMI 45.0-49.9, adult October 04, 2024 2:29 pm Chronic renal failure (CRF), stage 4 (se nils) October 04, 2024 2:29pm Coronary artery disease October 04, 2024 2 :29pm Debility October 04, 2024 2:29p m DVT (deep venous thrombosis) October 04, 2:29pm Essential (primary) hypertension October 2:29pm GERD (gastroesophageal reflux disease) J wilbert 2024 2:29pm Hyperlipidemia October 04, 2024 2:29p m Hypothyroidism October 04, 2024 2:29p m Insomnia October 04, 2024 2:29p m Iron deficiency anemia October 04, 2024 2: 29pm Left knee pain October 04, 2024 2:29p m Lymphedema October 04, 2024 2:29p m Obstructive sleep apnea October 04, 2024 2 :29pm Hyperkalemia October 04, 2024 2:29p m Metabolic acidosis October 04, 2024 2:29p m Seizure disorder October 04, 2024 2:29p m Toxic metabolic encephalopathy October 04, 2024 2:29pm Tremulousness October 04, 2024 2:29p m UTI (urinary tract infection) October 04, 2024 2:29pm S/P flap graft October 10, 2024 1:41p m Wound of right lower extremity October 10, 2024 1:41pm Acute on chronic anemia October 14, 2024 1:45pm Chief Complaint Admit Date NEW CONCERN June 22, 2024 6:4 6pm [...] 2024 5:00am HEMATOMA August 12, 2024 1:02pm MARCOS LOMAX REFERRED August 15, 2024 8: 41am LABWORK August 16, 2024 5:00a m LABWORK August 18, 2024 5:00a m LAB WORK August 22, 2024 4:00a m MARCOS LOMAX REFERRED August 22, 2024 11 :46am MARCOS LOMAX REFERRED September 01, 2024 2: 45pm MARCOS LOMAX REFERRED September 01, 2024 3: 12pm Seizure September 05, 2024 8:38a m Debridement of right leg wound, placemen t of skin September 06, 2024 7:22am Debridement of right leg wound, placemen t of skin September 06, 2024 7:34am RLGabe LOMAX REFERRED September 12, 2024 2: 16pm MARCOS LOMAX REFERRED September 19, 2024 2 :00pm MARCOS LOMAX REFERRED September 20, 2024 9 :02am ENCEPHALOPATHY, JOSE ON CKD, HYPERKALEMIA September 28, 2024 8:00pm ENCEPHALOPATHY, JOSE ON CKD, HYPERKALEMIA September 29, 2024 7:52am ENCEPHALOPATHY, JOSE ON CKD, HYPERKALEMIA September 30, 2024 8:25am ENCEPHALOPATHY, JOSE ON CKD, HYPERKALEMIA October 01, 2024 10:30am ENCEPHALOPATHY, JOSE ON CKD, HYPERKALEMIA October 02, 2024 1:11pm ENCEPHALOPATHY, JOSE ON CKD, HYPERKALEMIA October 03, 2024 7:51am ENCEPHALOPATHY, JOSE ON CKD, HYPERKALEMIA October 04, 2024 11:06am ENCEPHALOPATHY/JOSE ON CKD & HYPERKALEMIA October 04, 2024 2:29pm RLGabe LOMAX REFERRED October 10, 2024 1: 41pm MARCOS LOMAX REFERRED October 10, 2024 3: 00pm SWELLING October 11, 2024 9:44a m n/v October 12, 2024 1:34p m Chief Complaint Admit Date LABWORK June 27, 2024 5:0 0am LAB WORK July 04, 2024 5:0 0am LAB WORK July 11, 2024 4:00 am LABWORK July 18, 2024 5:0 0am NEW CONCERN July 20, 2024 5:4 2pm LABWORK July 25, 2024 5:0 0am wound July 29, 2024 2:5 1pm LAB WORK August 01, 2024 4:0 0am LABWORK August 08, 2024 5:00am HEMATOMA August 12, 2024 1:02pm RLGabe LOMAX REFERRED August 15, 2024 8: 41am LABWORK August 16, 2024 5:00a m LABWORK August 18, 2024 5:00a m LAB WORK August 22, 2024 4:00a m MARCOS LOMAX REFERRED August 22, 2024 11 :46am MARCOS LOMAX REFERRED September 01, 2024 2: 45pm MARCOS LOMAX REFERRED September 01, 2024 3: 12pm Seizure September 05, 2024 8:38a m Debridement of right leg wound, placemen t of skin September 06, 2024 7:22am Debridement of right leg wound, placemen t of skin September 06, 2024 7:34am MARCOS LOMAX REFERRED September 12, 2024 2: 16pm MARCOS LOMAX REFERRED September 19, 2024 2 :00pm MARCOS LOMAX REFERRED September 20, 2024 9 :02am ENCEPHALOPATHY, JOSE ON CKD, HYPERKALEMIA September 28, 2024 8:00pm ENCEPHALOPATHY, JOSE ON CKD, HYPERKALEMIA September 29, 2024 7:52am ENCEPHALOPATHY, JOSE ON CKD, HYPERKALEMIA September 30, 2024 8:25am ENCEPHALOPATHY, JOSE ON CKD, HYPERKALEMIA October 01, 2024 10:30am ENCEPHALOPATHY, JOSE ON CKD, HYPERKALEMIA October 02, 2024 1:11pm ENCEPHALOPATHY, JOSE ON CKD, HYPERKALEMIA October 03, 2024 7:51am ENCEPHALOPATHY, JOSE ON CKD, HYPERKALEMIA October 04, 2024 11:06am ENCEPHALOPATHY/JOSE ON CKD & HYPERKALEMIA October 04, 2024 2:29pm MARCOS LOMAX REFERRED October 10, 2024 3: 00pm SWELLING October 11, 2024 9:44a m n/v October 12, 2024 1:34p m MARCOS LOMAX REFERRED October 24, 2024 9 :15am MARCOS LOMAX REFERRED October 25, 2024 9 :35am S/P [facility] 10/21October 25, 2024 2:12 pm Reason for Visit Admit Date Hematoma of right lower leg August 12 1:02pm Wound of right lower extremity August 12, 2024 1:02pm Wound of right lower extremity September 01, 2024 2:45pm Seizure disorder September 05, 2024 8:38a m Wound of right lower extremity September 06, 2024 7:22am S/P flap graft September 19, 2024 2:00 pm JOSE (acute kidney injury) September 28 8:00pm Generalized weakness September 28, 2024 8:0 0pm Left knee pain September 28, 2024 8:00 pm Encephalopathy September 28, 2024 8:00 pm Hyperkalemia September 28, 2024 8:00 pm Metabolic acidosis September 28, 2024 8:00 pm Toxic metabolic encephalopathy September 8:00pm Tremulousness September 28, 2024 8:00 pm UTI (urinary tract infection) September 28, 2024 8:00pm (HFpEF) heart failure with preserved eje ction fraction October 04, 2024 2:29pm Appetite loss October 04, 2024 2:29p m Atrial fibrillation October 04, 2024 2:29p m Bilateral knee pain October 04, 2024 2:29p m BMI 45.0-49.9, adult October 04, 2024 2:29 pm Chronic renal failure (CRF), stage 4 (se nils) October 04, 2024 2:29pm Coronary artery disease October 04, 2024 2 :29pm Debility October 04, 2024 2:29p m DVT (deep venous thrombosis) October 04 2:29pm Essential (primary) hypertension October 2:29pm GERD (gastroesophageal reflux disease) J wilbert 2024 2:29pm Hyperlipidemia October 04, 2024 2:29p m Hypothyroidism October 04, 2024 2:29p m Insomnia October 04, 2024 2:29p m Iron deficiency anemia October 04, 2024 2: 29pm Left knee pain October 04, 2024 2:29p m Lymphedema October 04, 2024 2:29p m Obstructive sleep apnea October 04, 2024 2 :29pm Hyperkalemia October 04, 2024 2:29p m Metabolic acidosis October 04, 2024 2:29p m Seizure disorder October 04, 2024 2:29p m Toxic metabolic encephalopathy October 04, 2024 2:29pm Tremulousness October 04, 2024 2:29p m UTI (urinary tract infection) October 04, 2024 2:29pm Acute on chronic anemia October 14, 2024 1:45pm S/P flap graft October 24, 2024 9:15 am Wound of right lower extremity October 9:15am Chief Complaint Admit Date LAB WORK July 04, 2024 5:0 0am [...] LOMAX REFERRED September 19, 2024 2 :00pm RLGabe LOMAX REFERRED September 20, 2024 9 :02am ENCEPHALOPATHY, JOSE ON CKD, HYPERKALEMIA September 28, 2024 8:00pm ENCEPHALOPATHY, JOSE ON CKD, HYPERKALEMIA September 29, 2024 7:52am ENCEPHALOPATHY, JOSE ON CKD, HYPERKALEMIA September 30, 2024 8:25am ENCEPHALOPATHY, JOSE ON CKD, HYPERKALEMIA October 01, 2024 10:30am ENCEPHALOPATHY, JOSE ON CKD, HYPERKALEMIA October 02, 2024 1:11pm ENCEPHALOPATHY, JOSE ON CKD, HYPERKALEMIA October 03, 2024 7:51am ENCEPHALOPATHY, JOSE ON CKD, HYPERKALEMIA October 04, 2024 11:06am ENCEPHALOPATHY/JOES ON CKD & HYPERKALEMIA October 04, 2024 2:29pm RLE- DR LOMAX REFERRED October 10, 2024 3: 00pm SWELLING October 11, 2024 9:44a m n/v October 12, 2024 1:34p m RLE- DR LOMAX REFERRED October 24, 2024 9 :15am RLEMarco LOMAX REFERRED October 25, 2024 9 :35am S/P [facility] 10/21October 25, 2024 2:12 pm LOWER EXTREMITY October 26, 2024 10:0 0am Reason for Visit Admit Date Hematoma of right lower leg August 12 1:02pm Wound of right lower extremity August 12, 2024 1:02pm Wound of right lower extremity September 01, 2024 2:45pm Seizure disorder September 05, 2024 8:38a m Wound of right lower extremity September 06, 2024 7:22am S/P flap graft September 19, 2024 2:00 pm JOSE (acute kidney injury) September 28 8:00pm Generalized weakness September 28, 2024 8:0 0pm Left knee pain September 28, 2024 8:00 pm Encephalopathy September 28, 2024 8:00 pm Hyperkalemia September 28, 2024 8:00 pm Metabolic acidosis September 28, 2024 8:00 pm Toxic metabolic encephalopathy September 8:00pm Tremulousness September 28, 2024 8:00 pm UTI (urinary tract infection) September 28, 2024 8:00pm (HFpEF) heart failure with preserved eje ction fraction October 04, 2024 2:29pm Appetite loss October 04, 2024 2:29p m Atrial fibrillation October 04, 2024 2:29p m Bilateral knee pain October 04, 2024 2:29p m BMI 45.0-49.9, adult October 04, 2024 2:29 pm Chronic renal failure (CRF), stage 4 (se nils) October 04, 2024 2:29pm Coronary artery disease October 04, 2024 2 :29pm Debility October 04, 2024 2:29p m DVT (deep venous thrombosis) October 04, 2:29pm Essential (primary) hypertension October 2:29pm GERD (gastroesophageal reflux disease) J wilbert 2024 2:29pm Hyperlipidemia October 04, 2024 2:29p m Hypothyroidism October 04, 2024 2:29p m Insomnia October 04, 2024 2:29p m Iron deficiency anemia October 04, 2024 2: 29pm Left knee pain October 04, 2024 2:29p m Lymphedema October 04, 2024 2:29p m Obstructive sleep apnea October 04, 2024 2 :29pm Hyperkalemia October 04, 2024 2:29p m Metabolic acidosis October 04, 2024 2:29p m Seizure disorder October 04, 2024 2:29p m Toxic metabolic encephalopathy October 04, 2024 2:29pm Tremulousness October 04, 2024 2:29p m UTI (urinary tract infection) October 04, 2024 2:29pm Acute on chronic anemia October 14, 2024 1:45pm S/P flap graft October 24, 2024 9:15 am Wound of right lower extremity October 9:15am Atrial fibrillation, chronic October 25, 2024 2:12pm (HFpEF) heart failure with preserved eje ction fraction October 25, 2024 2:12pm Health Concerns Infection Onset Date Last Indicated [...] dose, On Thu02/16/23 at 1100 Given by [facility] 02/16/2023 11:51 AM EST 300 mg lidocaine (PF) 10 mg/mL (1 %) 100 mg injection (XYLOCAINE) 100 mg, OTHER, ONCE, 1 dose, On Thu02/16/23 at 1100 Given by [facility] 02/16/2023 11:50 AM EST 100 mg lidocaine (PF) 20 mg/mL (2 %) 200 mg injection (XYLOCAINE) 200 mg, OTHER, ONCE, 1 dose, On Thu02/16/23 at 1100 Given by [facility] 02/16/2023 11:51 AM EST 200 mg methylPREDNISolone acetate 40 mg injection (DEPO-Medrol) 40 mg, OTHER, ONCE, 1 dose, On Thu02/16/23 at 1100 Given by [facility] 02/16/2023 11:52 AM EST 80 [...] or prosecute any alcohol or drug abuse patient.[facility] CenterIn the event this information is protected by the Federal Confidentiality of Alcohol and Drug Abuse Patient Records regulations: The Federal rules restrict any use of the information to criminally investigate or prosecute any alcohol or drug abuse patient.[facility] CenterIn the event this information is protected by the Federal Confidentiality of Alcohol and Drug Abuse Patient Records regulations: The Federal rules restrict any use of the information to criminally investigate or prosecute any alcohol or drug abuse patient.[facility] CenterIn the event this information is protected by the Federal Confidentiality of Alcohol and Drug Abuse Patient Records regulations: The Federal rules restrict any use of the information to criminally investigate or prosecute any alcohol or drug abuse patient.[facility] CenterIn the event this information is protected by the Federal Confidentiality of Alcohol and Drug Abuse Patient Records regulations: The Federal rules restrict any use of the information to criminally investigate or prosecute any alcohol or drug abuse patient.[facility] CenterIn the event this information is protected by the Federal Confidentiality of Alcohol and Drug Abuse Patient Records regulations: The Federal rules restrict any use of the information to criminally investigate or prosecute any alcohol or drug abuse patient.[facility]In the event this information is protected by the Federal Confidentiality of Alcohol and Drug Abuse Patient Records regulations: The Federal rules restrict any use of the information to criminally investigate or prosecute any alcohol or drug abuse patient.[facility] CenterIn the event this information is protected by the Federal Confidentiality of Alcohol and Drug Abuse Patient Records regulations: The Federal rules restrict any use of the information to criminally investigate or prosecute any alcohol or drug abuse patient.[facility] CenterIn the event this information is protected by the Federal Confidentiality of Alcohol and Drug Abuse Patient Records regulations: The Federal rules restrict any use of the information to criminally investigate or prosecute any alcohol or drug abuse patient.[facility] CenterIn the event this information is protected by the Federal Confidentiality of Alcohol and Drug Abuse Patient Records regulations: The Federal rules restrict any use of the information to criminally investigate or prosecute any alcohol or drug abuse patient.[facility] CenterIn the event this information is protected by the Federal Confidentiality of Alcohol and Drug Abuse Patient Records regulations: The Federal rules restrict any use of the information to criminally investigate or prosecute any alcohol or drug abuse patient.[facility] CenterIn the event this information is protected by the Federal Confidentiality of Alcohol and Drug Abuse Patient Records regulations: The Federal rules restrict any use of the information to criminally investigate or prosecute any alcohol or drug abuse patient.[facility] CenterIn the event this information is protected by the Federal Confidentiality of Alcohol and Drug Abuse Patient Records regulations: The Federal rules restrict any use of the information to criminally investigate or prosecute any alcohol or drug abuse patient.[facility] CenterIn the event this information is protected by the Federal Confidentiality of Alcohol and Drug Abuse Patient Records regulations: The Federal rules restrict any use of the information to criminally investigate or prosecute any alcohol or drug abuse patient.[facility] CenterIn the event this information is protected by the Federal Confidentiality of Alcohol and Drug Abuse Patient Records regulations: The Federal rules restrict any use of the information to criminally investigate or prosecute any alcohol or drug abuse patient.[facility] CenterIn the event this information is protected by the Federal Confidentiality of Alcohol and Drug Abuse Patient Records regulations: The Federal rules restrict any use of the information to criminally investigate or prosecute any alcohol or drug abuse patient.[facility] CenterIn the event this information is protected by the Federal Confidentiality of Alcohol and Drug Abuse Patient Records regulations: The Federal rules restrict any use of the information to criminally investigate or prosecute any alcohol or drug abuse patient.[facility] CenterIn the event this information is protected by the Federal Confidentiality of Alcohol and Drug Abuse Patient Records regulations: The Federal rules restrict any use of the information to criminally investigate or prosecute any alcohol or drug abuse patient.[facility] CenterIn the event this information is protected by the Federal Confidentiality of Alcohol and Drug Abuse Patient Records regulations: The Federal rules restrict any use of the information to criminally investigate or prosecute any alcohol or drug abuse patient.[facility] CenterIn the event this information is protected by the Federal Confidentiality of Alcohol and Drug Abuse Patient Records regulations: The Federal rules restrict any use of the information to criminally investigate or prosecute any alcohol or drug abuse patient.[facility] CenterIn the event this information is protected by the Federal Confidentiality of Alcohol and Drug Abuse Patient Records regulations: The Federal rules restrict any use of the information to criminally investigate or prosecute any alcohol or drug abuse patient.[facility] CenterIn the event this information is protected by the Federal Confidentiality of Alcohol and Drug Abuse Patient Records regulations: The Federal rules restrict any use of the information to criminally investigate or prosecute any alcohol or drug abuse patient.[facility] CenterIn the event this information is protected by the Federal Confidentiality of Alcohol and Drug Abuse Patient Records regulations: The Federal rules restrict any use of the information to criminally investigate or prosecute any alcohol or drug abuse patient.[facility] CenterIn the event this information is protected by the Federal Confidentiality of Alcohol and Drug Abuse Patient Records regulations: The Federal rules restrict any use of the information to criminally investigate or prosecute any alcohol or drug abuse patient.[facility] CenterIn the event this information is protected by the Federal Confidentiality of Alcohol and Drug Abuse Patient Records regulations: The Federal rules restrict any use of the information to criminally investigate or prosecute any alcohol or drug abuse patient.[facility] CenterIn the event this information is protected by the Federal Confidentiality of Alcohol and Drug Abuse Patient Records regulations: The Federal rules restrict any use of the information to criminally investigate or prosecute any alcohol or drug abuse patient.[facility] CenterIn the event this information is protected by the Federal Confidentiality of Alcohol and Drug Abuse Patient Records regulations: The Federal rules restrict any use of the information to criminally investigate or prosecute any alcohol or drug abuse patient.[facility] CenterIn the event this information is protected by the Federal Confidentiality of Alcohol and Drug Abuse Patient Records regulations: The Federal rules restrict any use of the information to criminally investigate or prosecute any alcohol or drug abuse patient.[facility] CenterIn the event this information is protected by the Federal Confidentiality of Alcohol and Drug Abuse Patient Records regulations: The Federal rules restrict any use of the information to criminally investigate or prosecute any alcohol or drug abuse patient.[facility] CenterIn the event this information is protected by the Federal Confidentiality of Alcohol and Drug Abuse Patient Records regulations: The Federal rules restrict any use of the information to criminally investigate or prosecute any alcohol or drug abuse patient.[facility] CenterIn the event this information is protected by the Federal Confidentiality of Alcohol and Drug Abuse Patient Records regulations: The Federal rules restrict any use of the information to criminally investigate or prosecute any alcohol or drug abuse patient.[facility] CenterIn the event this information is protected by the Federal Confidentiality of Alcohol and Drug Abuse Patient Records regulations: The Federal rules restrict any use of the information to criminally investigate or prosecute any alcohol or drug abuse patient.[facility] CenterIn the event this information is protected by the Federal Confidentiality of Alcohol and Drug Abuse Patient Records regulations: The Federal rules restrict any use of the information to criminally investigate or prosecute any alcohol or drug abuse patient.[facility] CenterIn the event this information is protected by the Federal Confidentiality of Alcohol and Drug Abuse Patient Records regulations: The Federal rules restrict any use of the information to criminally investigate or prosecute any alcohol or drug abuse patient.[facility] CenterIn the event this information is protected by the Federal Confidentiality of Alcohol and Drug Abuse Patient Records regulations: The Federal rules restrict any use of the information to criminally investigate or prosecute any alcohol or drug abuse patient.[facility] CenterIn the event this information is protected by the Federal Confidentiality of Alcohol and Drug Abuse Patient Records regulations: The Federal rules restrict any use of the information to criminally investigate or prosecute any alcohol or drug abuse patient.[facility] CenterIn the event this information is protected by the Federal Confidentiality of Alcohol and Drug Abuse Patient Records regulations: The Federal rules restrict any use of the information to criminally investigate or prosecute any alcohol or drug abuse patient.[facility] CenterIn the event this information is protected by the Federal Confidentiality of Alcohol and Drug Abuse Patient Records regulations: The Federal rules restrict any use of the information to criminally investigate or prosecute any alcohol or drug abuse patient.[facility] CenterIn the event this information is protected by the Federal Confidentiality of Alcohol and Drug Abuse Patient Records regulations: The Federal rules restrict any use of the information to criminally investigate or prosecute any alcohol or drug abuse patient.[facility] CenterIn the event this information is protected by the Federal Confidentiality of Alcohol and Drug Abuse Patient Records regulations: The Federal rules restrict any use of the information to criminally investigate or prosecute any alcohol or drug abuse patient.[facility] CenterIn the event this information is protected by the Federal Confidentiality of Alcohol and Drug Abuse Patient Records regulations: The Federal rules restrict any use of the information to criminally investigate or prosecute any alcohol or drug abuse patient.[facility] CenterIn the event this information is protected by the Federal Confidentiality of Alcohol and Drug Abuse Patient Records regulations: The Federal rules restrict any use of the information to criminally investigate or prosecute any alcohol or drug abuse patient.[facility] CenterIn the event this information is protected by the Federal Confidentiality of Alcohol and Drug Abuse Patient Records regulations: The Federal rules restrict any use of the information to criminally investigate or prosecute any alcohol or drug abuse patient.[facility] CenterIn the event this information is protected by the Federal Confidentiality of Alcohol and Drug Abuse Patient Records regulations: The Federal rules restrict any use of the information to criminally investigate or prosecute any alcohol or drug abuse patient.[facility] CenterIn the event this information is protected by the Federal Confidentiality of Alcohol and Drug Abuse Patient Records regulations: The Federal rules restrict any use of the information to criminally investigate or prosecute any alcohol or drug abuse patient.[facility] CenterIn the event this information is protected by the Federal Confidentiality of Alcohol and Drug Abuse Patient Records regulations: The Federal rules restrict any use of the information to criminally investigate or prosecute any alcohol or drug abuse patient.[facility] CenterIn the event this information is protected by the Federal Confidentiality of Alcohol and Drug Abuse Patient Records regulations: The Federal rules restrict any use of the information to criminally investigate or prosecute any alcohol or drug abuse patient.[facility] CenterIn the event this information is protected by the Federal Confidentiality of Alcohol and Drug Abuse Patient Records regulations: The Federal rules restrict any use of the information to criminally investigate or prosecute any alcohol or drug abuse patient.[facility] CenterIn the event this information is protected by the Federal Confidentiality of Alcohol and Drug Abuse Patient Records regulations: The Federal rules restrict any use of the information to criminally investigate or prosecute any alcohol or drug abuse patient.[facility] CenterIn the event this information is protected by the Federal Confidentiality of Alcohol and Drug Abuse Patient Records regulations: The Federal rules restrict any use of the information to criminally investigate or prosecute any alcohol or drug abuse patient.[facility] CenterIn the event this information is protected by the Federal Confidentiality of Alcohol and Drug Abuse Patient Records regulations: The Federal rules restrict any use of the information to criminally investigate or prosecute any alcohol or drug abuse patient.[facility] CenterIn the event this information is protected by the Federal Confidentiality of Alcohol and Drug Abuse Patient Records regulations: The Federal rules restrict any use of the information to criminally investigate or prosecute any alcohol or drug abuse patient.[facility] CenterIn the event this information is protected by the Federal Confidentiality of Alcohol and Drug Abuse Patient Records regulations: The Federal rules restrict any use of the information to criminally investigate or prosecute any alcohol or drug abuse patient.[facility] CenterIn the event this information is protected by the Federal Confidentiality of Alcohol and Drug Abuse Patient Records regulations: The Federal rules restrict any use of the information to criminally investigate or prosecute any alcohol or drug abuse patient.[facility] CenterIn the event this information is protected by the Federal Confidentiality of Alcohol and Drug Abuse Patient Records regulations: The Federal rules restrict any use of the information to criminally investigate or prosecute any alcohol or drug abuse patient.[facility] CenterIn the event this information is protected by the Federal Confidentiality of Alcohol and Drug Abuse Patient Records regulations: The Federal rules restrict any use of the information to criminally investigate or prosecute any alcohol or drug abuse patient.[facility]In the event this information is protected by the Federal Confidentiality of Alcohol and Drug Abuse Patient Records regulations: The Federal rules restrict any use of the information to criminally investigate or prosecute any alcohol or drug abuse patient.[facility] CenterIn the event this information is protected by the Federal Confidentiality of Alcohol and Drug Abuse Patient Records regulations: The Federal rules restrict any use of the information to criminally investigate or prosecute any alcohol or drug abuse patient.[facility] CenterIn the event this information is protected by the Federal Confidentiality of Alcohol and Drug Abuse Patient Records regulations: The Federal rules restrict any use of the information to criminally investigate or prosecute any alcohol or drug abuse patient.[facility] CenterIn the event this information is protected by the Federal Confidentiality of Alcohol and Drug Abuse Patient Records regulations: The Federal rules restrict any use of the information to criminally investigate or prosecute any alcohol or drug abuse patient.[facility] CenterIn the event this information is protected by the Federal Confidentiality of Alcohol and Drug Abuse Patient Records regulations: The Federal rules restrict any use of the information to criminally investigate or prosecute any alcohol or drug abuse patient.[facility] CenterIn the event this information is protected by the Federal Confidentiality of Alcohol and Drug Abuse Patient Records regulations: The Federal rules restrict any use of the information to criminally investigate or prosecute any alcohol or drug abuse patient.[facility] CenterIn the event this information is protected by the Federal Confidentiality of Alcohol and Drug Abuse Patient Records regulations: The Federal rules restrict any use of the information to criminally investigate or prosecute any alcohol or drug abuse patient.[facility] CenterIn the event this information is protected by the Federal Confidentiality of Alcohol and Drug Abuse Patient Records regulations: The Federal rules restrict any use of the information to criminally investigate or prosecute any alcohol or drug abuse patient.[facility] CenterIn the event this information is protected by the Federal Confidentiality of Alcohol and Drug Abuse Patient Records regulations: The Federal rules restrict any use of the information to criminally investigate or prosecute any alcohol or drug abuse patient.[facility] CenterIn the event this information is protected by the Federal Confidentiality of Alcohol and Drug Abuse Patient Records regulations: The Federal rules restrict any use of the information to criminally investigate or prosecute any alcohol or drug abuse patient.[facility] CenterIn the event this information is protected by the Federal Confidentiality of Alcohol and Drug Abuse Patient Records regulations: The Federal rules restrict any use of the information to criminally investigate or prosecute any alcohol or drug abuse patient.[facility] CenterIn the event this information is protected by the Federal Confidentiality of Alcohol and Drug Abuse Patient Records regulations: The Federal rules restrict any use of the information to criminally investigate or prosecute any alcohol or drug abuse patient.[facility] CenterIn the event this information is protected by the Federal Confidentiality of Alcohol and Drug Abuse Patient Records regulations: The Federal rules restrict any use of the information to criminally investigate or prosecute any alcohol or drug abuse patient.[facility] CenterIn the event this information is protected by the Federal Confidentiality of Alcohol and Drug Abuse Patient Records regulations: The Federal rules restrict any use of the information to criminally investigate or prosecute any alcohol or drug abuse patient.[facility] CenterIn the event this information is protected by the Federal Confidentiality of Alcohol and Drug Abuse Patient Records regulations: The Federal rules restrict any use of the information to criminally investigate or prosecute any alcohol or drug abuse patient.[facility] CenterIn the event this information is protected by the Federal Confidentiality of Alcohol and Drug Abuse Patient Records regulations: The Federal rules restrict any use of the information to criminally investigate or prosecute any alcohol or drug abuse patient.[facility] CenterIn the event this information is protected by the Federal Confidentiality of Alcohol and Drug Abuse Patient Records regulations: The Federal rules restrict any use of the information to criminally investigate or prosecute any alcohol or drug abuse patient.[facility] Medical CenterIn the event this information is protected by the Federal Confidentiality of Alcohol and Drug Abuse Patient Records regulations: The Federal rules restrict any use of the information to criminally investigate or prosecute any alcohol or drug abuse patient.[facility] CenterIn the event this information is protected by the Federal Confidentiality of Alcohol and Drug Abuse Patient Records regulations: The Federal rules restrict any use of the information to criminally investigate or prosecute any alcohol or drug abuse patient.[facility] CenterIn the event this information is protected by the Federal Confidentiality of Alcohol and Drug Abuse Patient Records regulations: The Federal rules restrict any use of the information to criminally investigate or prosecute any alcohol or drug abuse patient.[facility] CenterIn the event this information is protected by the Federal Confidentiality of Alcohol and Drug Abuse Patient Records regulations: The Federal rules restrict any use of the information to criminally investigate or prosecute any alcohol or drug abuse patient.[facility] CenterIn the event this information is protected by the Federal Confidentiality of Alcohol and Drug Abuse Patient Records regulations: The Federal rules restrict any use of the information to criminally investigate or prosecute any alcohol or drug abuse patient.[facility] CenterIn the event this information is protected by the Federal Confidentiality of Alcohol and Drug Abuse Patient Records regulations: The Federal rules restrict any use of the information to criminally investigate or prosecute any alcohol or drug abuse patient.[facility] CenterIn the event this information is protected by the Federal Confidentiality of Alcohol and Drug Abuse Patient Records regulations: The Federal rules restrict any use of the information to criminally investigate or prosecute any alcohol or drug abuse patient.[facility] CenterIn the event this information is protected by the Federal Confidentiality of Alcohol and Drug Abuse Patient Records regulations: The Federal rules restrict any use of the information to criminally investigate or prosecute any alcohol or drug abuse patient.[facility] CenterIn the event this information is protected by the Federal Confidentiality of Alcohol and Drug Abuse Patient Records regulations: The Federal rules restrict any use of the information to criminally investigate or prosecute any alcohol or drug abuse patient.[facility] CenterIn the event this information is protected by the Federal Confidentiality of Alcohol and Drug Abuse Patient Records regulations: The Federal rules restrict any use of the information to criminally investigate or prosecute any alcohol or drug abuse patient.[facility] CenterIn the event this information is protected by the Federal Confidentiality of Alcohol and Drug Abuse Patient Records regulations: The Federal rules restrict any use of the information to criminally investigate or prosecute any alcohol or drug abuse patient.[facility] CenterIn the event this information is protected by the Federal Confidentiality of Alcohol and Drug Abuse Patient Records regulations: The Federal rules restrict any use of the information to criminally investigate or prosecute any alcohol or drug abuse patient.[facility] CenterIn the event this information is protected by the Federal Confidentiality of Alcohol and Drug Abuse Patient Records regulations: The Federal rules restrict any use of the information to criminally investigate or prosecute any alcohol or drug abuse patient.[facility] CenterIn the event this information is protected by the Federal Confidentiality of Alcohol and Drug Abuse Patient Records regulations: The Federal rules restrict any use of the information to criminally investigate or prosecute any alcohol or drug abuse patient.[facility] CenterIn the event this information is protected by the Federal Confidentiality of Alcohol and Drug Abuse Patient Records regulations: The Federal rules restrict any use of the information to criminally investigate or prosecute any alcohol or drug abuse patient.[facility] CenterIn the event this information is protected by the Federal Confidentiality of Alcohol and Drug Abuse Patient Records regulations: The Federal rules restrict any use of the information to criminally investigate or prosecute any alcohol or drug abuse patient.[facility] CenterIn the event this information is protected by the Federal Confidentiality of Alcohol and Drug Abuse Patient Records regulations: The Federal rules restrict any use of the information to criminally investigate or prosecute any alcohol or drug abuse patient.[facility] CenterIn the event this information is protected by the Federal Confidentiality of Alcohol and Drug Abuse Patient Records regulations: The Federal rules restrict any use of the information to criminally investigate or prosecute any alcohol or drug abuse patient.[facility] CenterIn the event this information is protected by the Federal Confidentiality of Alcohol and Drug Abuse Patient Records regulations: The Federal rules restrict any use of the information to criminally investigate or prosecute any alcohol or drug abuse patient.[facility] CenterIn the event this information is protected by the Federal Confidentiality of Alcohol and Drug Abuse Patient Records regulations: The Federal rules restrict any use of the information to criminally investigate or prosecute any alcohol or drug abuse patient.[facility] CenterIn the event this information is protected by the Federal Confidentiality of Alcohol and Drug Abuse Patient Records regulations: The Federal rules restrict any use of the information to criminally investigate or prosecute any alcohol or drug abuse patient.[facility] CenterIn the event this information is protected by the Federal Confidentiality of Alcohol and Drug Abuse Patient Records regulations: The Federal rules restrict any use of the information to criminally investigate or prosecute any alcohol or drug abuse patient.[facility] CenterIn the event this information is protected by the Federal Confidentiality of Alcohol and Drug Abuse Patient Records regulations: The Federal rules restrict any use of the information to criminally investigate or prosecute any alcohol or drug abuse patient.[facility] CenterIn the event this information is protected by the Federal Confidentiality of Alcohol and Drug Abuse Patient Records regulations: The Federal rules restrict any use of the information to criminally investigate or prosecute any alcohol or drug abuse patient.[facility] CenterIn the event this information is protected by the Federal Confidentiality of Alcohol and Drug Abuse Patient Records regulations: The Federal rules restrict any use of the information to criminally investigate or prosecute any alcohol or drug abuse patient.[facility] CenterIn the event this information is protected by the Federal Confidentiality of Alcohol and Drug Abuse Patient Records regulations: The Federal rules restrict any use of the information to criminally investigate or prosecute any alcohol or drug abuse patient.[facility] CenterIn the event this information is protected by the Federal Confidentiality of Alcohol and Drug Abuse Patient Records regulations: The Federal rules restrict any use of the information to criminally investigate or prosecute any alcohol or drug abuse patient.[facility] CenterIn the event this information is protected by the Federal Confidentiality of Alcohol and Drug Abuse Patient Records regulations: The Federal rules restrict any use of the information to criminally investigate or prosecute any alcohol or drug abuse patient.[facility] CenterIn the event this information is protected by the Federal Confidentiality of Alcohol and Drug Abuse Patient Records regulations: The Federal rules restrict any use of the information to criminally investigate or prosecute any alcohol or drug abuse patient.[facility] CenterIn the event this information is protected by the Federal Confidentiality of Alcohol and Drug Abuse Patient Records regulations: The Federal rules restrict any use of the information to criminally investigate or prosecute any alcohol or drug abuse patient.[facility] CenterIn the event this information is protected by the Federal Confidentiality of Alcohol and Drug Abuse Patient Records regulations: The Federal rules restrict any use of the information to criminally investigate or prosecute any alcohol or drug abuse patient.[facility] CenterIn the event this information is protected by the Federal Confidentiality of Alcohol and Drug Abuse Patient Records regulations: The Federal rules restrict any use of the information to criminally investigate or prosecute any alcohol or drug abuse patient.[facility] CenterIn the event this information is protected by the Federal Confidentiality of Alcohol and Drug Abuse Patient Records regulations: The Federal rules restrict any use of the information to criminally investigate or prosecute any alcohol or drug abuse patient.[facility]In the event this information is protected by the Federal Confidentiality of Alcohol and Drug Abuse Patient Records regulations: The Federal rules restrict any use of the information to criminally investigate or prosecute any alcohol or drug abuse patient.[facility] CenterIn the event this information is protected by the Federal Confidentiality of Alcohol and Drug Abuse Patient Records regulations: The Federal rules restrict any use of the information to criminally investigate or prosecute any alcohol or drug abuse patient.[facility] CenterIn the event this information is protected by the Federal Confidentiality of Alcohol and Drug Abuse Patient Records regulations: The Federal rules restrict any use of the information to criminally investigate or prosecute any alcohol or drug abuse patient.[facility] CenterIn the event this information is protected by the Federal Confidentiality of Alcohol and Drug Abuse Patient Records regulations: The Federal rules restrict any use of the information to criminally investigate or prosecute any alcohol or drug abuse patient.[facility] CenterIn the event this information is protected by the Federal Confidentiality of Alcohol and Drug Abuse Patient Records regulations: The Federal rules restrict any use of the information to criminally investigate or prosecute any alcohol or drug abuse patient.[facility] CenterIn the event this information is protected by the Federal Confidentiality of Alcohol and Drug Abuse Patient Records regulations: The Federal rules restrict any use of the information to criminally investigate or prosecute any alcohol or drug abuse patient.[facility] CenterIn the event this information is protected by the Federal Confidentiality of Alcohol and Drug Abuse Patient Records regulations: The Federal rules restrict any use of the information to criminally investigate or prosecute any alcohol or drug abuse patient.[facility] CenterIn the event this information is protected by the Federal Confidentiality of Alcohol and Drug Abuse Patient Records regulations: The Federal rules restrict any use of the information to criminally investigate or prosecute any alcohol or drug abuse patient.[facility] CenterIn the event this information is protected by the Federal Confidentiality of Alcohol and Drug Abuse Patient Records regulations: The Federal rules restrict any use of the information to criminally investigate or prosecute any alcohol or drug abuse patient.[facility] CenterIn the event this information is protected by the Federal Confidentiality of Alcohol and Drug Abuse Patient Records regulations: The Federal rules restrict any use of the information to criminally investigate or prosecute any alcohol or drug abuse patient.[facility] CenterIn the event this information is protected by the Federal Confidentiality of Alcohol and Drug Abuse Patient Records regulations: The Federal rules restrict any use of the information to criminally investigate or prosecute any alcohol or drug abuse patient.[facility] CenterIn the event this information is protected by the Federal Confidentiality of Alcohol and Drug Abuse Patient Records regulations: The Federal rules restrict any use of the information to criminally investigate or prosecute any alcohol or drug abuse patient.[facility] CenterIn the event this information is protected by the Federal Confidentiality of Alcohol and Drug Abuse Patient Records regulations: The Federal rules restrict any use of the information to criminally investigate or prosecute any alcohol or drug abuse patient.[facility] CenterIn the event this information is protected by the Federal Confidentiality of Alcohol and Drug Abuse Patient Records regulations: The Federal rules restrict any use of the information to criminally investigate or prosecute any alcohol or drug abuse patient.[facility] CenterIn the event this information is protected by the Federal Confidentiality of Alcohol and Drug Abuse Patient Records regulations: The Federal rules restrict any use of the information to criminally investigate or prosecute any alcohol or drug abuse patient.[facility] CenterIn the event this information is protected by the Federal Confidentiality of Alcohol and Drug Abuse Patient Records regulations: The Federal rules restrict any use of the information to criminally investigate or prosecute any alcohol or drug abuse patient.[facility] CenterIn the event this information is protected by the Federal Confidentiality of Alcohol and Drug Abuse Patient Records regulations: The Federal rules restrict any use of the information to criminally investigate or prosecute any alcohol or drug abuse patient.[facility] CenterIn the event this information is protected by the Federal Confidentiality of Alcohol and Drug Abuse Patient Records regulations: The Federal rules restrict any use of the information to criminally investigate or prosecute any alcohol or drug abuse patient.[facility] CenterIn the event this information is protected by the Federal Confidentiality of Alcohol and Drug Abuse Patient Records regulations: The Federal rules restrict any use of the information to criminally investigate or prosecute any alcohol or drug abuse patient.[facility] CenterIn the event this information is protected by the Federal Confidentiality of Alcohol and Drug Abuse Patient Records regulations: The Federal rules restrict any use of the information to criminally investigate or prosecute any alcohol or drug abuse patient.[facility] Reason for Visit (unrecogniz ed section and content) Reason Comments Procedure Specialty Diagnoses / Procedures Referred By Contac t Referred To Contact Pain Management / PAIN MANAGEMENT Diagnoses Primary osteoarthritis, right shoulder Primary osteoarthritis, left shoulder Suprascapular Nerve Block with steroid infiltration under ultrasound guidance LEFT-SIDED, 81mg apsrin Procedures INJECTION AA&/STRD SUPRASCAPULAR NERVE PROCEDURE 20 Roque Delgado MD [address] [address] Roque Delgado MD [address] [address] Referral ID Status Reason Start Date Expiration Date Visits Re quested Visits Authorized [id number] Closed 04/06/2023 04/05/2024 1 1 Reason Comments Physical Therapy Specialty Diagnoses / Procedures Referred By Contac t Referred To Contact Physical Therapy / PHYSICAL THERAPY Diagnoses Lumbar spondylosis Thoracic spine pain Myofascial pain Procedures CONSULT TO PHYSICAL THERAPY Avis Marrufo, EMPLOYMENT PROGRAM REPRESENTATIVE.[employer] [address] [place] [address] Pt [facility] [address] [place] [address] Referral ID Status Reason Start Date Expiration Date V isits Requested Visits Authorized [id number] Authorized 04/06/2021 04/05/2022 99 99 Reason Comments PT Eval Reason Comments PT Discharge Reason Comments Recheck Reason Comments Results Reason Comments Radiology CT Specialty Diagnoses / Procedures Referred By Contac t Referred To Contact CT IMAGING Diagnoses Left upper quadrant abdominal pain Procedures CT ABD/PEL WO IVCON CT ABD & PELVIS W/O CONTRAST Lizy Capone MD [address] [place] [address] Ct Imaging Referral ID Status Reason Start Date Expiration Date V isits Requested Visits Authorized [id number] Closed Auto-Generate d Referral 07/18/2021 08/17/2022 1 [...] ADDITIONAL VERTEBRA [address] [place] [address] Referral ID Status Reason Start Date Expiration Date Visits Re quested Visits Authorized [id number] 1 1 Reason Comments Follow Up Reason Comments Acute Visit bilat leg swelling Reason Comments Faxed Referral Referral ID Status Reason Start Date Expiration Date Visits Re quested Visits Authorized [id number] 1 1 Reason Comments Results Labs Reason [...] NEW HIGH MDM 60-74 MINUTES Miryam Orozco APRN.[employer] [address] [place] [address] Referral ID Status Reason Start Date Expiration Date V isits Requested Visits Authorized [id number] Closed PCP Requested Referral 04/21/2022 04/21/2023 1 [...] Questions Specialty Diagnoses / Procedures Referred By Contyumiko t Referred To Contact MR IMAGING Diagnoses Lumbar spondylosis Spinal stenosis of lumbar region without neurogenic claudication Procedures MRI LUMBAR SPINE WO IVCON MRI SPINAL CANAL LUMBAR W/O CONTRAST MATERIAL Avis Marrufo M, EMPLOYMENT PROGRAM REPRESENTATIVE.[employer] [address] [place] [address] [place] [address] Referral ID Status Reason Start Date Expiration Date V isits Requested Visits Authorized [id number] Closed Auto-Generate d Referral 04/03/2022 05/03/2023 1 1 Reason Comments Procedure Glenohumeral Joint i njection - bilateral Specialty Diagnoses / Procedures Referred By Kallie t Referred To Contact Pain Management / PAIN MANAGEMENT Diagnoses Primary osteoarthritis, right shoulder Primary osteoarthritis, left shoulder (MEDICARE A & B) AUTH IS GOOD - CAD Glenohumeral joint injection, bilateral, under fluoroscopic guidance Procedures ARTHROCENTESIS ASPIR&/INJ MAJOR JT/BURSA W/O US PROCEDURE 20 Roque Delgado MD [address] [address] Roque Delgado MD [address] [address] Referral ID Status Reason Start Date Expiration Date Visits Re quested Visits Authorized [id number] Closed 02/16/2023 05/17/2023 1 1 Reason Comments [...] NEUROLYTIC AGENT OTHER PERIPHERAL NERVE PROCEDURE 20 BenjaminYasmanimuna Pradhan, EMPLOYMENT PROGRAM REPRESENTATIVE.[employer]GER [employer] [address] [place] [address] Roque Delgado MD [address] [address] Referral ID Status Reason Start Date Expiration Date V isits Requested Visits Authorized [id number] Pending Review 07/15/2023 10/13/2023 1 1 Reason Comments Returning Patient's Call Reason Onset Date Comments Refill Request 09/21/2023 Reason Onset Date Comments Refill Request 09/28/2023 Reason Comments Procedure Pain (Shoulder Pain) RFA Right suprascap ular Specialty Diagnoses / Procedures Referred By Contac t Referred To Contact Pain Management / PAIN MANAGEMENT Diagnoses Primary osteoarthritis, right shoulder Right RFA - suprascapular nerve w fluoro; 81mg asp Procedures INJECTION AA&/STRD SUPRASCAPULAR NERVE PROCEDURE 30 Keyana Greenberg PA-C [address] [address] Roque Delgado MD [address] [address] Referral ID Status Reason Start Date Expiration Date V isits Requested Visits Authorized [id number] New Request 11/16/2023 02/14/2024 1 1 Reason Comments Discussion Reason Comments Follow Up RFA - no relief at a ll Pain (Shoulder Pain) Bilateral - right i s worse Knee Pain Bilateral - left is worse Reason Comments 6 Month Exam Reason Comments medical clearance form [facility] fo r shoulder surgery Reason Onset Date Comments Refill Request 03/07/2024 Reason Comments Patient Update Reason Comments F/U 6 Month Hospital f/u Reason Comments Cough Cough, SOB and wheez ing x 8 days Reason Onset Date Comments Refill Request 09/04/2024 Reason Comments Medication Question Reason Comments Patient Question Orders Reason Comments F/U 1 month Reason Comments Follow HH Reason Onset Date Comments Transition Of Care 10/21/2024 Reason Comments Hospital F/U Reason Comments Orders Care Teams (unrecognized sec tion and content) Computer Systems Design Analyst Relationship Specialty Start Date End Date Lizy Capone MD [address] [facility] [place] [address] PCP - General 11/15/08 Computer Systems Design Analyst Relationship Specialty Start Date End Date Lizy Capone MD [address] [facility] [place] [address] PCP - General 11/15/08 Computer Systems Design Analyst Relationship Specialty Start Date End Date Lizy Capone MD [address] [facility] [place] [address] PCP - General 11/15/08 Computer Systems Design Analyst Relationship Specialty Start Date End Date Lizy Capone MD [address] [facility] [place] [address] PCP - General 11/15/08 Computer Systems Design Analyst Relationship Specialty Start Date End Date Lizy Capone MD [address] [facility] [place] [address] PCP - General 11/15/08 Computer Systems Design Analyst Relationship Specialty Start Date End Date Lizy Capone MD [address] [facility] [place] [address] PCP - General 11/15/08 Computer Systems Design Analyst Relationship Specialty Start Date End Date Lizy Capone MD [address] [facility] [place] [address] PCP - General 11/15/08 Computer Systems Design Analyst Relationship Specialty Start Date End Date Lizy aCpone MD [address] [facility] [place] [address] PCP - General 11/15/08 Computer Systems Design Analyst Relationship Specialty Start Date End Date Lizy Capone MD [address] [facility] [place] [address] PCP - General 11/15/08 Computer Systems Design Analyst Relationship Specialty Start Date End Date Lizy Capone MD [address] [facility] [place] [address] PCP - General 11/15/08 Computer Systems Design Analyst Relationship Specialty Start Date End Date Lizy Capone MD [address] [facility] [place] [address] PCP - General 11/15/08 Computer Systems Design Analyst Relationship Specialty Start Date End Date Lizy Capone MD [address] [facility] [place] [address] PCP - General 11/15/08 Computer Systems Design Analyst Relationship Specialty Start Date End Date Lizy Capone MD [address] [facility] [place] [address] PCP - General 11/15/08 Computer Systems Design Analyst Relationship Specialty Start Date End Date Lizy Capone MD [address] [facility] [place] [address] PCP - General 11/15/08 Computer Systems Design Analyst Relationship Specialty Start Date End Date Lizy Capone MD [address] [facility] [place] [address] PCP - General 11/15/08 Computer Systems Design Analyst Relationship Specialty Start Date End Date Lizy Capone MD [address] [facility] [place] [address] PCP - General 11/15/08 Computer Systems Design Analyst Relationship Specialty Start Date End Date Lizy Capone MD [address] [facility] [place] [address] PCP - General 11/15/08 Computer Systems Design Analyst Relationship Specialty Start Date End Date Lizy Capone MD [address] [facility] [place] [address] PCP - General 11/15/08 Computer Systems Design Analyst Relationship Specialty Start Date End Date Lizy Capone MD [address] [facility] [place] [address] PCP - General 11/15/08 Computer Systems Design Analyst Relationship Specialty Start Date End Date Lizy Capone MD [address] [facility] [place] [address] PCP - General 11/15/08 Computer Systems Design Analyst Relationship Specialty Start Date End Date Lizy Capone MD [address] [facility] [place] [address] PCP - General 11/15/08 Computer Systems Design Analyst Relationship Specialty Start Date End Date Lizy Capone MD [address] [facility] [place] [address] PCP - General 11/15/08 Computer Systems Design Analyst Relationship Specialty Start Date End Date Lizy Capone MD [address] [facility] [place] [address] PCP - General 11/15/08 Computer Systems Design Analyst Relationship Specialty Start Date End Date Lizy Capone MD [address] [facility] [place] [address] PCP - General 11/15/08 Computer Systems Design Analyst Relationship Specialty Start Date End Date Lizy Capone MD [address] [facility] [place] [address] PCP - General 11/15/08 Computer Systems Design Analyst Relationship Specialty Start Date End Date Lizy Capone MD [address] [facility] [place] [address] PCP - General 11/15/08 Computer Systems Design Analyst Relationship Specialty Start Date End Date Lizy Capone MD [address] [place] [address] PCP - General 11/15/08 Computer Systems Design Analyst Relationship Specialty Start Date End Date Lizy Capone MD [address] [place] [address] PCP - General 11/15/08 Computer Systems Design Analyst Relationship Specialty Start Date End Date Lizy Capone MD [address] [place] [address] PCP - General 11/15/08 Team Status: Active [...] Dr. Kesha Acosta DO Attending Provider Active Computer Systems Design Analyst Relationship Specialty Start Date End Date Lizy Capone MD [address] [place] [address] PCP - General 11/15/08 Team Status: Inactive Member Role Status Dates Dr. Lizy Capone MD Primary Care Provider Active Dr. Kesha Acosta DO Attending Provider, Referring P rovider Active Computer Systems Design Analyst Relationship Specialty Start Date End Date Lizy Capone MD [address] [place] [address] PCP - General 11/15/08 Computer Systems Design Analyst Relationship Specialty Start Date End Date Lizy Capone MD [address] [place] [address] PCP - General 11/15/08 Team Status: Active Member Role Status Dates Dr. Lizy Capone MD Primary Care Provider Active Dr. Norberto Jackson MD Other Provider Active Jas Bethea COOKER MECHANIC, COOKER MECHANIC-C Attending Provider Active Team Status: Active Member Role Status Dates Dr. Lizy Capone MD Primary Care Provider Active Dr. Norberto Jackson MD Other Provider Active Maria Teresa Olivo COOKER MECHANIC, COOKER MECHANIC-C Attending Provider Active Team Status: Inactive Member Role Status Dates Dr. Lizy Capone MD Primary Care Provider Active Dr. Norberto Jackson MD Attending Provider, Referring Pro vider Active Computer Systems Design Analyst Relationship Specialty Start Date End Date Lizy Capone MD [address] [place] [address] PCP - General 11/15/08 Computer Systems Design Analyst Relationship Specialty Start Date End Date Lizy Capone MD [address] [place] [address] PCP - General 11/15/08 Computer Systems Design Analyst Relationship Specialty Start Date End Date Lizy Capone MD [address] [place] [address] PCP - General 11/15/08 Team Status: Inactive Member Role Status Dates Dr. Lizy Capone MD Primary Care Provider Active Dr. Gautam Hrady MD Attending Provider Active Computer Systems Design Analyst Relationship Specialty Start Date End Date Lizy Capone MD [address] [place] [address] PCP - General 11/15/08 Computer Systems Design Analyst Relationship Specialty Start Date End Date Lizy Capone MD [address] [place] [address] PCP - General 11/15/08 Computer Systems Design Analyst Relationship Specialty Start Date End Date Lizy Capone MD [address] [place] [address] PCP - General 11/15/08 Computer Systems Design Analyst Relationship Specialty Start Date End Date Lizy Capone MD [address] [place] [address] PCP - General 11/15/08 Computer Systems Design Analyst Relationship Specialty Start Date End Date Lizy Capone MD [address] [place] [address] PCP - General 11/15/08 Computer Systems Design Analyst Relationship Specialty Start Date End Date Lizy Capone MD [address] [place] [address] PCP - General 11/15/08 Computer Systems Design Analyst Relationship Specialty Start Date End Date Lizy Capone MD [address] [place] [address] PCP - General 11/15/08 Computer Systems Design Analyst Relationship Specialty Start Date End Date Lizy Capone MD [address] [place] [address] PCP - General 11/15/08 Computer Systems Design Analyst Relationship Specialty Start Date End Date Lizy Capone MD [address] [place] [address] PCP - General 11/15/08 Computer Systems Design Analyst Relationship Specialty Start Date End Date Lizy Cpaone MD [address] [place] [address] PCP - General 11/15/08 Computer Systems Design Analyst Relationship Specialty Start Date End Date Lizy Capone MD [address] [place] [address] PCP - General 11/15/08 Computer Systems Design Analyst Relationship Specialty Start Date End Date Lizy Capone MD [address] [place] [address] PCP - General 11/15/08 Computer Systems Design Analyst Relationship Specialty Start Date End Date Lizy Capone MD [address] [place] [address] PCP - General 11/15/08 Team Status: Active [...] Dr. Ralph Haynes MD Attending Provider Active Computer Systems Design Analyst Relationship Specialty Start Date End Date Lizy Capone MD [address] [place] [address] PCP - General 11/15/08 Computer Systems Design Analyst Relationship Specialty Start Date End Date Lizy Capone MD [address] [place] [address] PCP - General 11/15/08 Computer Systems Design Analyst Relationship Specialty Start Date End Date Lizy Capone MD [address] [place] [address] PCP - General 11/15/08 Computer Systems Design Analyst Relationship Specialty Start Date End Date Lizy Capone MD [address] [place] [address] PCP - General 11/15/08 Computer Systems Design Analyst Relationship Specialty Start Date End Date Lizy Capone MD [address] [place] [address] PCP - General 11/15/08 Computer Systems Design Analyst Relationship Specialty Start Date End Date Lizy Capone MD [address] [place] [address] PCP - General 11/15/08 Computer Systems Design Analyst Relationship Specialty Start Date End Date Lizy Capone MD [address] [place] [address] PCP - General 11/15/08 Computer Systems Design Analyst Relationship Specialty Start Date End Date Lizy Capone MD [address] [place] [address] PCP - General 11/15/08 Computer Systems Design Analyst Relationship Specialty Start Date End Date Lizy Capone MD [address] [place] [address] PCP - General 11/15/08 Computer Systems Design Analyst Relationship Specialty Start Date End Date Lizy Capone MD [address] [place] [address] PCP - General 11/15/08 Computer Systems Design Analyst Relationship Specialty Start Date End Date Lizy Capone MD [address] [place] [address] PCP - General 11/15/08 Computer Systems Design Analyst Relationship Specialty Start Date End Date Lizy Capone MD [address] [place] [address] PCP - General 11/15/08 Computer Systems Design Analyst Relationship Specialty Start Date End Date Lizy Capone MD [address] [place] [address] PCP - General 11/15/08 Computer Systems Design Analyst Relationship Specialty Start Date End Date Lizy Capone MD [address] [place] [address] PCP - General 11/15/08 Computer Systems Design Analyst Relationship Specialty Start Date End Date Lizy Capone MD [address] [place] [address] PCP - General 11/15/08 Miryam Orozco, EMPLOYMENT PROGRAM REPRESENTATIVE.SAGGER MAKER [address] [place] [address] Vacuum Applicator Operator Family Medicine 03/13/24 Mulugeta Jennings APRN.SAGGER MAKER [address] [place] [address] Vacuum Applicator Operator Family Medicine 03/22/24 Computer Systems Design Analyst Relationship Specialty Start Date End Date Miryam Orozco FNP [address] [place] [address] PCP - General Family Medicine 05/04/24 Norberto Jackson MD [address] [place] [address] Cardiovascular Disease 05/05/24 Computer Systems Design Analyst Relationship Specialty Start Date End Date Lizy Capone MD [address] [place], [place] [id number] PCP - General 11/15/08 Miryam Orozco APRN.SAGGER MAKER [address] [place], [place] [address] Vacuum Applicator Operator Family Medicine 03/13/24 Mulugeta Jennings APRN.SAGGER MAKER [address] [place], [place] [address] Vacuum Applicator Operator Family Medicine 03/22/24 Team Status: Inactive Member [...] 01, 2024 End: May 04, 2024 Dr. nAthony Anderson MD Other Provider Active Start : May [...] Active Start: May 02, 2024 Dr. Anthony Anderson MD Other Provider Active Start : May [...] Active Start: May 02, 2024 Dr. Anthony Anderson MD Other Provider Active Start : May [...] Star t: May 03, 2024 Dr. Qian Albrceht MD Other Provider Active Start: May 03, [...] Active Start: May 03, 2024 Dr. Anthony Anderson MD Other Provider Active Start : May [...] Active Start : May 03, 2024 Dr. Kni Young MD Other Provider Active Start: May 03, 2024 Dr. Anthony Anderson MD Other Provider Active Start : May [...] Active Start: May 04, 2024 Dr. Anthony Anderson MD Other Provider Active Start : May [...] t: May 04, 2024 Dr. Edgar Davies , Attending Provider Active S tart: May 04, [...] Active Start: May 04, 2024 Dr. Anthony Anderson MD Other Provider Active Start : May [...] AguillonC Primary Care Provider Active Start: May 18, [...] Agu[place] Primary Care Provider Active Start: May 19, 2024 Dr. Mari Mehta DO Admit Provider Active Start: May Dr. Mari Mehta DO Attending Provider Active Start: May Dr. Mari Mehta DO Other Provider Active Start: May Team Status: Active Member Role Status Dates [place] Aguillon Primary Care Provider Active Start: May 20, 2024 Dr. Mari Mehta DO Admit Provider Active Start: May Dr. Mari Mehta DO Attending Provider Active Start: May Dr. Mari Mehta DO Other Provider Active Start: May Team Status: Active Member Role Status Dates Miryam Tannhof , COOKER MECHANIC-C Primary Care Provider Active Start: May 23, 2024 Dr. Mari Mehta DO Admit Provider Active Start: May Dr. Mari Mehta DO Attending Provider Active Start: May Dr. Mari Mehta DO Other Provider Active Start: May Team Status: Active Member Role Status Dates Miryam Orozco COOKER MECHANIC-C Primary Care Provider Active Start: May 26, 2024 Dr. Mari Mehta DO Admit Provider Active Start: May Dr. Mari Mehta DO Attending Provider Active Start: May Dr. Mari Mehta DO Other Provider Active Start: May Team Status: Active Member Role Status Dates Miryam Orozco COOKER MECHANIC-C Primary Care Provider Active Start: May 27, [...] Active Member Role Status Dates Miryam Orozco COOKER MECHANIC-C Primary Care Provider Active Start: June 02, 2024 Dr. Mari Mehta DO Admit Provider Active Start: May Dr. Mari Mehta DO Attending Provider Active Start: May Dr. Mari Mehta DO Other Provider Active Start: May Team Status: Active Member Role Status Dates Miryam Orozco NP-C Primary Care Provider Active Start: June 06, 2024 Dr. Mari Mehta DO Admit Provider Active Start: June 06, 2024 Dr. Mari Mehta , Attending Provider Act vianney Start: June 06, 2024 Dr. Mari Mehta , Other Provider Active Start: June 06, 2024 Team Status: Active Member Role Status Dates Miryam Orozco NP-C Primary Care Provider Active Start: June 07, 2024 Dr. Mari Mehta DO Admit Provider Active Start: June 07, 2024 Dr. Mari Mehta DO Attending Provider Act vianney Start: June 07, 2024 Dr. Mari Mehta DO Other Provider Active Start: June 07, 2024 Team Status: Active Member Role Status Dates Miryam Orozco NP-C Primary Care Provider Active Start: June 07, [...] NP-C Primary Care Provider Active Start: June 13, 2024 Gustavo MANZO MD Attending Provider Active Start: June 13, 2024 Team Status: Active Member Role Status Dates Miryam Orozco COOKER MECHANIC-C Primary Care Provider Active Start: June 20, 2024 Gustavo MANZO MD Attending Provider Active Start: June 20, 2024 Team Status: Active Member Role Status Dates Miryam Orozco COOKER MECHANIC-C Primary Care Provider Active Start: June 27, 2024 Gustavo MANZO MD Attending Provider Active Start: June 27, 2024 Team Status: Active Member Role Status Dates Miryam Orozco COOKER MECHANIC-C Primary Care Provider Active Start: July 04, 2024 Gustavo MANZO MD Attending Provider Active Start: July 04, 2024 Team Status: Active Member Role Status Dates Miryam Orozco COOKER MECHANIC-C Primary Care Provider Active Start: July 11, 2024 Gustavo MANZO MD Attending Provider Active Start: July 11, 2024 Team Status: Active Member Role Status Dates Miryam Orozco COOKER MECHANIC-C Primary Care Provider Active Team Status: Inactive Member Role Status Dates Miryam Orozco COOKER MECHANIC-C Primary Care Provider Active Start: June 13, 2024 End: June 13, 2024 Minna Villarreal NP, COOKER MECHANIC-C Attending Provider Active Start: June 13, 2024 End: June 13, 2024 Team Status: Inactive Member Role Status Dates Miryam Orozco , COOKER MECHANIC-C Primary Care Provider Active Start: June 14, 2024 End: June 14, 2024 Dr. Gustavo Castorena MD Attending Provider Active Start: June 14, 2024 End: June 14, 2024 Team Status: Inactive Member Role Status Dates Miryam Orozco COOKER MECHANIC-C Primary Care Provider Active Start: June 22, 2024 End: June 22, 2024 Minna Villarreal NP, COOKER MECHANIC-C Attending Provider Active Start: June 22, 2024 End: June 22, 2024 Team Status: Active Member Role Status Dates Miryam Orozco COOKER MECHANIC-C Primary Care Provider Active Start: July 11, 2024 Gustavo MANZO MD Attending Provider Active Start: July 11, 2024 Gustavo MANZO MD Referring Provider Active Start: July 11, 2024 Team Status: Active Member Role Status Dates MARILEE AguillonC Primary Care Provider Active Start: July 18, 2024 Gustavo MANZO MD Attending Provider Active Start: July 18, 2024 Team Status: Active Member Role Status Dates MARILEE AguillonC Primary Care Provider Active Start: July 25, 2024 Gustavo MANZO MD Attending Provider Active Start: July 25, 2024 Team Status: Inactive Member Role Status Dates [place] Aguillon Primary Care Provider Active Start: July 29, 2024 End: July 29, 2024 Dr. Jean Paul Ha DO Emergency Provider Active Start : July 29, 2024 End: July 29, 2024 Computer Systems Design Analyst Relationship Specialty Start Date End Date Lizy Capone MD [address] [place], [place] [address] PCP - General 11/15/08 Mulugeta Jennings APRN.SAGGER MAKER [address] [place], [place] [id number] [phone] [facility] Computer Systems Design Analyst Relationship Specialty Start Date End Date Lizy Capone MD [address] [place], [place] [address] [phone] PCP - General 11/15/08 Mulugeta Jennings APRN.SAGGER MAKER [address] [place] [address] [facility] 03/22/24 Team Status: Inactive Member Role Status Dates [place] Aguillon Primary Care Provider Active Start: July 29, 2024 End: July 29, 2024 Dr. Jean Paul Ha DO Attending Provider Active Start : July 29, 2024 End: July 29, 2024 Dr. Jean Paul Ha DO Emergency Provider Active Start : July 29, 2024 End: July 29, 2024 Team Status: Active Member Role Status Dates Miryam Tannhof , COOKER MECHANIC-C Primary Care Provider Active Start: August 01, 2024 Gustavo MANZO MD Attending Provider Active Start: August 01, 2024 Gustavo MANZO MD Referring Provider Active Start: August 01, 2024 Team Status: Active Member Role Status Dates Miryampoonam Orozco COOKER MECHANIC-C Primary Care Provider Active Start: August 08, 2024 Gustavo MANZO MD Attending Provider Active Start: August 08, 2024 Team Status: Inactive Member Role Status Dates Miryam Orozco COOKER MECHANIC-C Primary Care Provider Active Start: August 12, 2024 End: August 12, 2024 Miryam Orozco COOKER MECHANIC-C Referring Provider Active Start: August 12, 2024 End: August 12, 2024 Dr. Gonzalo Lomax MD Attending Provider Active Start: August 12, 2024 End: August 12, 2024 Team Status: Active Member Role Status Dates Miryam Orozco COOKER MECHANIC-C Primary Care Provider Active Start: August 15, 2024 Dr. Gonzalo Lomax MD Attending Provider Active Start: August 15, 2024 Dr. Gonzalo Lomax MD Referring Provider Active Start: August 15, 2024 Dr. Gonzalo Lomax MD Other Provider Active Star t: August 15, 2024 Team Status: Active Member Role Status Dates Miryam Orozco COOKER MECHANIC-C Primary Care Provider Active Start: August 16, 2024 Gustavo MANZO MD Attending Provider Active Start: August 16, 2024 Team Status: Active Member Role Status Dates Miryam Orozco COOKER MECHANIC-C Primary Care Provider Active Start: August 18, 2024 Gustavo MANZO MD Attending Provider Active Start: August 18, 2024 Team Status: Active Member Role Status Dates Miryam Orozco COOKER MECHANIC-C Primary Care Provider Active Start: August 22, 2024 Gustavo MANZO MD Attending Provider Active Start: August 22, 2024 Team Status: Active Member Role Status Dates Miryam Orozco COOKER MECHANIC-C Primary Care Provider Active Start: August 22, [...] Provider Active Star t: September 01, 2024 Computer Systems Design Analyst Relationship Specialty Start Date End Date Lizy Capone MD [address] [place], [place] [address] PCP - General 11/15/08 Mulugeta Jennings EMPLOYMENT PROGRAM REPRESENTATIVE.SAGGER MAKER [address] [facility], [place] [address] [phone] Vacuum Applicator Operator Family Medicine 03/22/24 Team Status: Inactive Member Role Status Dates Miryam Orozco COOKER MECHANIC-C Primary Care Provider Active Start: September 05, 2024 End: September 05, 2024 Miryam Orozco NP-C Referring Provider Active Start: September 05, 2024 End: September 05, 2024 Dr. Mehdi Womack MD Attending Provider Active Start: September 05, 2024 End: September 05, 2024 Computer Systems Design Analyst Relationship Specialty Start Date End Date Lizy Capone MD [address] [facility], [place] [address] PCP - General 11/15/08 Mulugeta Jennings EMPLOYMENT PROGRAM REPRESENTATIVE.SAGGER MAKER [address] [facility], [place] [address] [phone] [facility] 03/22/24 Computer Systems Design Analyst Relationship Specialty Start Date End Date Lizy Capone MD [address] [place] [address] PCP - General 11/15/08 Mulugeta Jennings EMPLOYMENT PROGRAM REPRESENTATIVE.SAGGER MAKER [address] [place] [address] [facility] 03/22/24 Computer Systems Design Analyst Relationship Specialty Start Date End Date Lizy Capone MD [address] [place] [address] PCP - General 11/15/08 Mulugeta Jennings, EMPLOYMENT PROGRAM REPRESENTATIVE.SAGGER MAKER [address] [place] [address] [facility] 03/22/24 Computer Systems Design Analyst Relationship Specialty Start Date End Date Lizy Capone MD [address] [place] [address] PCP - General 11/15/08 Mulugeta Jennings, EMPLOYMENT PROGRAM REPRESENTATIVE.SAGGER MAKER [address] [place] [address] [facility] 03/22/24 Computer Systems Design Analyst Relationship Specialty Start Date End Date Lizy Capone MD [address] [place] [address] PCP - General 11/15/08 Mulugeta Jennings, EMPLOYMENT PROGRAM REPRESENTATIVE.SAGGER MAKER [address] [place] [address] [facility] 03/22/24 Team Status: Active Member Role Status Dates Miryam Orozco NP-C Primary Care Provider Active Start: August 22, [...] Provider Active Star t: September 06, 2024 Computer Systems Design Analyst Relationship Specialty Start Date End Date Lizy Capone MD [address] [place], [place] [id number] PCP - General 11/15/08 Mulugeta Jennings APRN.SAGGER MAKER [address] [place], [place] [address] Vacuum Applicator Operator Family Medicine 03/22/24 Team Status: Inactive Member Role Status Dates Miryam Orozco NP-C Primary Care Provider Active Start: July 20, 2024 End: July 20, 2024 Minna Villarreal NP, COOKER MECHANIC-C Attending Provider Active Start: July 20, 2024 [...] NP-C Primary Care Provider Active Start: September 19, 2024 Dr. Gonzalo Lomax MD Attending Provider Active Start: September 19, 2024 Dr. Gonzalo Lomax MD Referring Provider Active Start: September 19, 2024 Team Status: Active Member Role Status Dates Miryam Orozco COOKER MECHANIC-C Primary Care Provider Active Start: September 20, 2024 Dr. Gonzalo Lomax MD Attending Provider Active Start: September 20, 2024 Dr. Gonzalo Lomax MD Referring Provider Active Start: September 20, 2024 Dr. Gonzalo Lomax MD Other Provider Active Star t: September 20, 2024 Team Status: Active Member Role Status Dates Miryam Orozco NP-C Primary Care Provider Active Start: September 28, 2024 Dr. Jhonatan Maxwell DO Emergency Provider Active Start: September 28, 2024 Dr. Michelle Gallardo MD Admit Provider Active St art: September 28, 2024 Dr. Michelle Gallardo MD Attending Provider Active Start: September 28, 2024 Dr. Michelle Gallardo MD Other Provider Active St art: September 28, 2024 Computer Systems Design Analyst Relationship Specialty Start Date End Date Lizy Capone MD [address] [place], [place] [id number] PCP - General 11/15/08 Mulugeta Jennings APRN.CNP [address] [place], [place] [id number] Vacuum Applicator Operator Family Medicine 03/22/24 Team Status: Active Member Role/Relationship Status Dates Miryam Orozco NP-C Primary Care Provider Active Team Status: Inactive Member Role/Relationship Status Dates Miryam Orozco NP-C Primary Care Provider Active Start: May 18, 2024 End: June 10, 2024 Dr. Mari Mehta DO Admit Provider Active Start: May End: June 10, 2024 Dr. Mari Mehta DO Attending Provider Active Start: May End: June 10, 2024 Dr. Gerardo Rogers MD Other Provider Active Start: May 18, 2024 End: June 10, 2024 Team Status: Active Member Role/Relationship Status Dates Miryam Orozco COOKER MECHANIC-C Primary Care Provider Active Start: June 06, 2024 Dr. Mari Mehta DO Admit Provider Active Start: June 06, 2024 Dr. Mari Mehta DO Attending Provider Act vianney Start: June 06, 2024 Dr. Mari Mehta , Other Provider Active Start: June 06, 2024 Team Status: Active Member Role/Relationship Status Dates Miryam Orozco COOKER MECHANIC-C Primary Care Provider Active Start: June 07, 2024 Dr. Mari Mehta DO Admit Provider Active Start: June 07, 2024 Dr. Mari Mehta DO Attending Provider Act vianney Start: June 07, 2024 Dr. Mari Mehta DO Other Provider Active Start: June 07, 2024 Team Status: Active Member Role/Relationship Status Dates Miryam Orozco COOKER MECHANIC-C Primary Care Provider Active Start: June 07, 2024 Christa Michel RN Attending Provider Active Start: June 07, 2024 Team Status: Active Member Role/Relationship Status Dates Miryam Orozco NP-C Primary Care Provider Active Start: June 09, 2024 Dr. Mari Mehta DO Admit Provider Active Start: June 09, 2024 Dr. Mari Mehta DO Attending Provider Act vianney Start: June 09, 2024 Dr. Mari Mehta DO Other Provider Active Start: June 09, 2024 Dr. Gerardo Rogers MD Other Provider Active Start: June 09, 2024 Team Status: Active Member Role/Relationship Status Dates Miryam Orozco COOKER MECHANIC-C Primary Care Provider Active Start: June 10, 2024 Dr. Mari Mehta DO Admit Provider Active Start: June 10, 2024 Dr. Mari Mehta DO Attending Provider Act vianney Start: June 10, 2024 Dr. Mari Mehta DO Other Provider Active Start: June 10, 2024 Dr. Gerardo Rogers MD Other Provider Active Start: June 10, 2024 Team Status: Active Member Role/Relationship Status Dates Miryam Orozco COOKER MECHANIC-C Primary Care Provider Active Start: June 13, 2024 Gustavo MANZO MD Attending Provider Active Start: June 13, 2024 Team Status: Inactive Member Role/Relationship Status Dates Miryam Orozco , COOKER MECHANIC-C Primary Care Provider Active Start: June 13, 2024 End: June 13, 2024 Minna Villarreal COOKER MECHANIC, COOKER MECHANIC-C Attending Provider Active Start: June 13, 2024 End: June 13, 2024 Team Status: Inactive Member Role/Relationship Status Dates Miryam Orozco , COOKER MECHANIC-C Primary Care Provider Active Start: June 14, 2024 End: June 14, 2024 Dr. Gustavo Castorena MD Attending Provider Active Start: June 14, 2024 End: June 14, 2024 Team Status: Active Member Role/Relationship Status Dates Miryam Orozco , COOKER MECHANIC-C Primary Care Provider Active Start: June 20, 2024 Gustavo MANZO MD Attending Provider Active Start: June 20, 2024 Team Status: Inactive Member Role/Relationship Status Dates Miryam Orozco , COOKER MECHANIC-C Primary Care Provider Active Start: June 22, 2024 End: June 22, 2024 Minna Villarreal [employer]IC, [employer]-C Attending Provider Active Start: June 22, 2024 End: June 22, 2024 Team Status: Active Member Role/Relationship Status Dates Miryam Orozco , [employer]-C Primary Care Provider Active Start: June 27, 2024 Gustavo MANZO MD Attending Provider Active Start: June 27, 2024 Team Status: Active Member Role/Relationship Status Dates Miryam Orozco , [employer]-C Primary Care Provider Active Start: July 04, 2024 Gustavo MANZO MD Attending Provider Active Start: July 04, 2024 Team Status: Active Member Role/Relationship Status Dates Miryam Orozco , [employer]-C Primary Care Provider Active Start: July 11, 2024 Gustavo MANZO MD Attending Provider Active Start: July 11, 2024 Gustavo MANZO MD Referring Provider Active Start: July 11, 2024 Team Status: Active Member Role/Relationship Status Dates Miryam Orozco , [employer]-C Primary Care Provider Active Start: July 18, 2024 Gustavo MANZO MD Attending Provider Active Start: July 18, 2024 Team Status: Inactive Member Role/Relationship Status Dates Miryam Orozco , [employer]-C Primary Care Provider Active Start: July 20, 2024 End: July 20, 2024 Minna Villarreal NP, [employer]-C Attending Provider Active Start: July 20, 2024 End: July 20, 2024 Team Status: Active Member Role/Relationship Status Dates Miryam Orozco , [employer]-C Primary Care Provider Active Start: July 25, 2024 Gustavo MANZO MD Attending Provider Active Start: July 25, 2024 Team Status: Inactive Member Role/Relationship Status Dates Miryam Orozco , [employer]-C Primary Care Provider Active Start: July 29, 2024 End: July 29, 2024 Dr. Jean Paul Ha DO Attending Provider Active Start : July 29, 2024 End: July 29, 2024 Dr. Jean Paul Ha DO Emergency Provider Active Start : July 29, 2024 End: July 29, 2024 Team Status: Active Member Role/Relationship Status Dates Miryam Orozco , [employer]-C Primary Care Provider Active Start: August 01, 2024 Gustavo MANZO MD Attending Provider Active Start: August 01, 2024 Gustavo MANZO MD Referring Provider Active Start: August 01, 2024 Team Status: Active Member Role/Relationship Status Dates Miryam Orozco , [employer]-C Primary Care Provider Active Start: August 08, 2024 Gustavo MANZO MD Attending Provider Active Start: August 08, 2024 Team Status: Inactive Member Role/Relationship Status Dates Miryam Orozco , [employer]-C Primary Care Provider Active Start: August 12, 2024 End: August 12, 2024 Miryam Orozco [employer]-C Referring Provider Active Start: August 12, 2024 End: August 12, 2024 Dr. Gonzalo Lomax MD Attending Provider Active Start: August 12, 2024 End: August 12, 2024 Team Status: Active Member Role/Relationship Status Dates Miryam Orozco , [employer]-C Primary Care Provider Active Start: August 15, 2024 Dr. Gonzalo Lomax MD Attending Provider Active Start: August 15, 2024 Dr. Gonzalo Lomax MD Referring Provider Active Start: August 15, 2024 Dr. Gonzalo Lomax MD Other Provider Active Star t: August 15, 2024 Team Status: Active Member Role/Relationship Status Dates Miryam Orozco , [employer]-C Primary Care Provider Active Start: August 16, 2024 Gustavo MANZO MD Attending Provider Active Start: August 16, 2024 Team Status: Active Member Role/Relationship Status Dates Miryam Serrapat , [employer]-C Primary Care Provider Active Start: August 18, 2024 Gustavo MANZO MD Attending Provider Active Start: August 18, 2024 Team Status: Active Member Role/Relationship Status Dates Miryam Orozco [employer]-C Primary Care Provider Active Start: August 22, 2024 Gutsavo MANZO MD Attending Provider Active Start: August 22, 2024 Gustavo MANZO MD Referring Provider Active Start: August 22, 2024 Team Status: Active Member Role/Relationship Status Dates Miryam Orozco , [employer]-C Primary Care Provider Active Start: August 22, 2024 Dr. Gonzalo Lomax MD Attending Provider Active Start: August 22, 2024 Dr. Gonzalo Lomax MD Referring Provider Active Start: August 22, 2024 Dr. Gonzalo Lomax MD Other Provider Active Star t: August 22, 2024 Team Status: Inactive Member Role/Relationship Status Dates Miryam Orozco [employer]-C Primary Care Provider Active Start: September 01, 2024 End: September 03, 2024 Dr. Gonzalo Lomax MD Attending Provider Active Start: September 01, 2024 End: September 03, 2024 Dr. Gonzalo Lomax MD Referring Provider Active Start: September 01, 2024 End: September 03, 2024 Team Status: Active Member Role/Relationship Status Dates Miryam Orozco [employer]-C Primary Care Provider Active Start: September 01, 2024 Dr. Gonzalo Lomax MD Attending Provider Active Start: September 01, 2024 Dr. Gonzalo Lomax MD Referring Provider Active Start: September 01, 2024 Dr. Gonzalo Lomax MD Other Provider Active Star t: September 01, 2024 Team Status: Inactive Member Role/Relationship Status Dates Miryam Orozco , [employer]-C Primary Care Provider Active Start: September 05, 2024 End: September 05, 2024 Miryam Orozco [employer]-C Referring Provider Active Start: September 05, 2024 End: September 05, 2024 Dr. Mehdi Womack MD Attending Provider Active Start: September 05, 2024 End: September 05, 2024 Team Status: Inactive Member Role/Relationship Status Dates Miryampoonam Orozco , [employer]-C Primary Care Provider Active Start: September 06, 2024 End: September 06, 2024 Dr. Gonzalo Lomax MD Attending Provider Active Start: September 06, 2024 End: September 06, 2024 Dr. Gonzalo Lomax MD Referring Provider Active Start: September 06, 2024 End: September 06, 2024 Team Status: Active Member Role/Relationship Status Dates Miryampoonam Orozco , [employer]-C Primary Care Provider Active Start: September 06, 2024 Dr. Gonzalo Lomax MD Attending Provider Active Start: September 06, 2024 Dr. Gonzalo Lomax MD Referring Provider Active Start: September 06, 2024 Dr. Gonzalo Lomax MD Other Provider Active Star t: September 06, 2024 Team Status: Active Member Role/Relationship Status Dates Miryampoonam Orozco , [employer]-C Primary Care Provider Active Start: September 12, 2024 Dr. Gonzalo Lomax MD Attending Provider Active Start: September 12, 2024 Dr. Gonzalo Lomax MD Referring Provider Active Start: September 12, 2024 Dr. Gonzalo Lomax MD Other Provider Active Star t: September 12, 2024 Team Status: Inactive Member Role/Relationship Status Dates Miryampoonam Orozco , [employer]-C Primary Care Provider Active Start: September 19, 2024 End: October 03, 2024 Dr. Gonzalo Lomax MD Attending Provider Active Start: September 19, 2024 End: October 03, 2024 Dr. Gonzalo Lomax MD Referring Provider Active Start: September 19, 2024 End: October 03, 2024 Team Status: Active Member Role/Relationship Status Dates Miryampoonam Orozco , [employer]-C Primary Care Provider Active Start: September 20, 2024 Dr. Gonzalo Lomax MD Attending Provider Active Start: September 20, 2024 Dr. oGnzalo Lomax MD Referring Provider Active Start: September 20, 2024 Dr. Gonzalo Lomax MD Other Provider Active Star t: September 20, 2024 Team Status: Active Member Role/Relationship Status Dates Miryampoonam Kimballhof , [employer]-C Primary Care Provider Active Start: September 28, 2024 Dr. Jhonatan Maxwell DO Emergency Provider Active Start: September 28, 2024 Dr. Michelle Gallardo MD Admit Provider Active St art: September 28, 2024 Dr. Michelle Gallardo MD Other Provider Active St art: September 28, 2024 Dr. Qian Albrecht MD Other Provider Active Start: September 28, 2024 Dr. Alex Acosta DO Attending Provider Active S tart: September 28, 2024 Dr. Russell Todd DO Other Provider Active Star t: September 28, 2024 Team Status: Active Member Role/Relationship Status Dates Miryam Orozco NP-C Primary Care Provider Active Start: September 29, 2024 Dr. Jhonatan Maxwell DO Emergency Provider Active Start: September 29, 2024 Dr. Michelle Gallardo MD Admit Provider Active St art: September 29, 2024 Dr. Michelle Gallardo MD Other Provider Active St art: September 29, 2024 Dr. Qian Albrecht MD Other Provider Active Start: September 29, 2024 Dr. Russell Todd DO Attending Provider Active Start: September 29, 2024 Dr. Russell Todd DO Other Provider Active Star t: September 29, 2024 Team Status: Active Member Role/Relationship Status Dates Miryam Orozco NP-C Primary Care Provider Active Start: September 30, 2024 Dr. Jhonatan Maxwell DO Emergency Provider Active Start: September 30, 2024 Dr. Michelle Gallardo MD Admit Provider Active St art: September 30, 2024 Dr. Michelle Gallardo MD Other Provider Active St art: September 30, 2024 Dr. Qian Albrecht MD Other Provider Active Start: September 30, 2024 Dr. Russell Todd DO Attending Provider Active Start: September 30, 2024 Dr. Russell Todd DO Other Provider Active Star t: September 30, 2024 Team Status: Active Member Role/Relationship Status Dates Miryam Orozco NP-C Primary Care Provider Active Start: October 01, 2024 Dr. Jhonatan Maxwell DO Emergency Provider Active Start: October 01, 2024 Dr. Michelle Gallardo MD Admit Provider Active St art: October 01, 2024 Dr. Michelle Gallardo MD Other Provider Active St art: October 01, 2024 Dr. Qian Albrecht MD Other Provider Active Start: October 01, 2024 Dr. Alex Acosta , Attending Provider Active S tart: October 01, 2024 Dr. Alex Acosta , Other Provider Active Start : October 01, 2024 Dr. Russell Todd DO Other Provider Active Star t: October 01, 2024 Team Status: Active Member Role/Relationship Status Dates Miryam Orozco [employer]-C Primary Care Provider Active Start: October 02, 2024 Dr. Jhonatan Maxwell , Emergency Provider Active Start: October 02, 2024 Dr. Michelle Gallardo MD Admit Provider Active St art: October 02, 2024 Dr. Mcihelle Gallardo MD Other Provider Active St art: October 02, 2024 Dr. Qian Albrecht MD Other Provider Active Start: October 02, 2024 Dr. Alex Acosta DO Attending Provider Active S tart: October 02, 2024 Dr. Alex Acosta DO Other Provider Active Start : October 02, 2024 Dr. Russell Todd DO Other Provider Active Star t: October 02, 2024 Team Status: Active Member Role/Relationship Status Dates Miryam Orozco NP-C Primary Care Provider Active Start: October 03, 2024 Dr. Jhonatan Maxwell , Emergency Provider Active Start: October 03, 2024 Dr. Michelle Gallardo MD Admit Provider Active St art: October 03, 2024 Dr. Michelle Gallardo MD Other Provider Active St art: October 03, 2024 Dr. Qian Albrecht MD Other Provider Active Start: October 03, 2024 Dr. Alex Acosta DO Attending Provider Active S tart: October 03, 2024 Dr. Alex Acosta DO Other Provider Active Start : October 03, 2024 Dr. Russell Todd DO Other Provider Active Star t: October 03, 2024 Team Status: Inactive Member Role/Relationship Status Dates Miryam Orozco NP-C Primary Care Provider Active Start: June 14, 2024 End: June 14, 2024 Dr. Gustavo Castorena MD Attending Provider Active Start: June 14, 2024 End: June 14, 2024 Team Status: Active Member Role/Relationship Status Dates Miryam Tannhof , [employer]-C Primary Care Provider Active Start: June 20, 2024 Gustavo MANZO MD Attending Provider Active Start: June 20, 2024 Team Status: Inactive Member Role/Relationship Status Dates Miryam Orozco [employer]-C Primary Care Provider Active Start: June 22, 2024 End: June 22, 2024 Minna Villarreal [employer] MECH[employer]IC, [employer]IC-C Attending Provider Active Start: June 22, 2024 End: June 22, 2024 Team Status: Active Member Role/Relationship Status Dates Miryam Orozco [employer]IC-C Primary Care Provider Active Start: June 27, 2024 Gustavo MANZO MD Attending Provider Active Start: June 27, 2024 Team Status: Active Member Role/Relationship Status Dates Miryam Orozco [employer]-C Primary Care Provider Active Start: July 04, 2024 Gustavo MANZO MD Attending Provider Active Start: July 04, 2024 Team Status: Active Member Role/Relationship Status Dates Miryam Orozco [employer]-C Primary Care Provider Active Start: July 11, 2024 Gustavo MANZO MD Attending Provider Active Start: July 11, 2024 Gustavo MANZO MD Referring Provider Active Start: July 11, 2024 Team Status: Active Member Role/Relationship Status Dates Miryam Orozco [employer]-C Primary Care Provider Active Start: July 18, 2024 Gustavo MANZO MD Attending Provider Active Start: July 18, 2024 Team Status: Inactive Member Role/Relationship Status Dates Miryam Orozco [employer]-C Primary Care Provider Active Start: July 20, 2024 End: July 20, 2024 Minna Villarreal [employer]CH[employer]IC, [employer]-C Attending Provider Active Start: July 20, 2024 End: July 20, 2024 Team Status: Active Member Role/Relationship Status Dates Miryam Orozco [employer]-C Primary Care Provider Active Start: July 25, 2024 Gustavo MANZO MD Attending Provider Active Start: July 25, 2024 Team Status: Inactive Member Role/Relationship Status Dates Miryam Orozco , [employer]-C Primary Care Provider Active Start: July 29, 2024 End: July 29, 2024 Dr. Jean Paul Ha DO Attending Provider Active Start : July 29, 2024 End: July 29, 2024 Dr. Jean Paul Ha DO Emergency Provider Active Start : July 29, 2024 End: July 29, 2024 Team Status: Active Member Role/Relationship Status Dates Miryma Orozco , [employer]-C Primary Care Provider Active Start: August 01, 2024 Gustavo MANZO MD Attending Provider Active Start: August 01, 2024 Gustavo MANZO MD Referring Provider Active Start: August 01, 2024 Team Status: Active Member Role/Relationship Status Dates Miryam Orozco , [employer]-C Primary Care Provider Active Start: August 08, 2024 Gustavo MANZO MD Attending Provider Active Start: August 08, 2024 Team Status: Inactive Member Role/Relationship Status Dates Miryam Orozco , [employer]-C Primary Care Provider Active Start: August 12, 2024 End: August 12, 2024 Miryam Orozco [employer]IC-C Referring Provider Active Start: August 12, 2024 End: August 12, 2024 Dr. Gonzalo Lomax MD Attending Provider Active Start: August 12, 2024 End: August 12, 2024 Team Status: Active Member Role/Relationship Status Dates Miryam Orozco [employer]-C Primary Care Provider Active Start: August 15, 2024 Dr. Gonzalo Lomax MD Attending Provider Active Start: August 15, 2024 Dr. Gonzalo Lomax MD Referring Provider Active Start: August 15, 2024 Dr. Gonzalo Lomax MD Other Provider Active Star t: August 15, 2024 Team Status: Active Member Role/Relationship Status Dates Miryam Orozco [employer]-C Primary Care Provider Active Start: August 16, 2024 Gustavo MANZO MD Attending Provider Active Start: August 16, 2024 Team Status: Active Member Role/Relationship Status Dates Miryam Orozco [employer]-C Primary Care Provider Active Start: August 18, 2024 Gustavo MANZO MD Attending Provider Active Start: August 18, 2024 Team Status: Active Member Role/Relationship Status Dates Miryam Orozco [employer]-C Primary Care Provider Active Start: August 22, 2024 Gustavo MANZO MD Attending Provider Active Start: August 22, 2024 Gustavo MANZO MD Referring Provider Active Start: August 22, 2024 Team Status: Active Member Role/Relationship Status Dates Miraym Orozco , [employer]-C Primary Care Provider Active Start: August 22, 2024 Dr. Gonzalo Lomax MD Attending Provider Active Start: August 22, 2024 Dr. Gonzalo Lomax MD Referring Provider Active Start: August 22, 2024 Dr. Gonzalo Lomax MD Other Provider Active Star t: August 22, 2024 Team Status: Inactive Member Role/Relationship Status Dates Miryampoonam Serraf , [employer]IC-C Primary Care Provider Active Start: September 01, 2024 End: September 03, 2024 Dr. Gonzalo Lomax MD Attending Provider Active Start: September 01, 2024 End: September 03, 2024 Dr. Gonzalo Lomax MD Referring Provider Active Start: September 01, 2024 End: September 03, 2024 Team Status: Active Member Role/Relationship Status Dates Miryam Orozco , [employer]-C Primary Care Provider Active Start: September 01, 2024 Dr. Gonzalo Lomax MD Attending Provider Active Start: September 01, 2024 Dr. Gonzalo Lomax MD Referring Provider Active Start: September 01, 2024 Dr. Gonzalo Lomax MD Other Provider Active Star t: September 01, 2024 Team Status: Inactive Member Role/Relationship Status Dates Miryam Jigarhof , [employer]-C Primary Care Provider Active Start: September 05, 2024 End: September 05, 2024 Miryampoonam Kimballhof , [employer]IC-C Referring Provider Active Start: September 05, 2024 End: September 05, 2024 Dr. Mehdi Womack MD Attending Provider Active Start: September 05, 2024 End: September 05, 2024 Team Status: Inactive Member Role/Relationship Status Dates Miryam Jigarhof , [employer]-C Primary Care Provider Active Start: September 06, 2024 End: September 06, 2024 Dr. Gonzalo Lomax MD Attending Provider Active Start: September 06, 2024 End: September 06, 2024 Dr. Gonzalo Lomax MD Referring Provider Active Start: September 06, 2024 End: September 06, 2024 Team Status: Active Member Role/Relationship Status Dates Miryam Orozco , [employer]-C Primary Care Provider Active Start: September 06, 2024 Dr. Gonzalo Lomax MD Attending Provider Active Start: September 06, 2024 Dr. Gonzalo Lomax MD Referring Provider Active Start: September 06, 2024 Dr. Gonzalo Lomax MD Other Provider Active Star t: September 06, 2024 Team Status: Active Member Role/Relationship Status Dates Miryam Orozco [employer]-C Primary Care Provider Active Start: September 12, 2024 Dr. Gonzalo Lomax MD Attending Provider Active Start: September 12, 2024 Dr. Gonzalo Lomax MD Referring Provider Active Start: September 12, 2024 Dr. Gonzalo Lomax MD Other Provider Active Star t: September 12, 2024 Team Status: Inactive Member Role/Relationship Status Dates Miryam Orozco [employer]-C Primary Care Provider Active Start: September 19, 2024 End: October 03, 2024 Dr. Gonzalo Lomax MD Attending Provider Active Start: September 19, 2024 End: October 03, 2024 Dr. Gonzalo Lomax MD Referring Provider Active Start: September 19, 2024 End: October 03, 2024 Team Status: Active Member Role/Relationship Status Dates Miryam Orozco [employer]-C Primary Care Provider Active Start: September 20, 2024 Dr. Gonzalo Lomax MD Attending Provider Active Start: September 20, 2024 Dr. Gonzalo Lomax MD Referring Provider Active Start: September 20, 2024 Dr. Gonzalo Lomax MD Other Provider Active Star t: September 20, 2024 Team Status: Inactive Member Role/Relationship Status Dates Miryam Orozco [employer]-C Primary Care Provider Active Start: September 28, 2024 End: October 04, 2024 Dr. Jhonatan Maxwell DO Emergency Provider Active Start: September 28, 2024 End: October 04, 2024 Dr. Mcihelle Gallardo MD Admit Provider Active St art: September 28, 2024 End: October 04, 2024 Dr. Michelle Gallardo MD Other Provider Active St art: September 28, 2024 End: October 04, 2024 Dr. Qian Albrecht MD Other Provider Active Start: September 28, 2024 End: October 04, 2024 Dr. Alex Acosta DO Attending Provider Active S tart: September 28, 2024 End: October 04, 2024 Dr. Russell Todd DO Other Provider Active Star t: September 28, 2024 End: October 04, 2024 Team Status: Active Member Role/Relationship Status Dates Miryam Orozco [employer]-C Primary Care Provider Active Start: September 29, 2024 Dr. Jhonatan Maxwell DO Emergency Provider Active Start: September 29, 2024 Dr. Michelle Gallardo MD Admit Provider Active St art: September 29, 2024 Dr. Michelle Gallardo MD Other Provider Active St art: September 29, 2024 Dr. Qian Albrecht MD Other Provider Active Start: September 29, 2024 Dr. Russell Todd DO Attending Provider Active Start: September 29, 2024 Dr. Russell Todd DO Other Provider Active Star t: September 29, 2024 Team Status: Active Member Role/Relationship Status Dates Miryam Orozco [employer]-C Primary Care Provider Active Start: September 30, 2024 Dr. Jhonatan Maxwell DO Emergency Provider Active Start: September 30, 2024 Dr. Michelle Gallardo MD Admit Provider Active St art: September 30, 2024 Dr. Michelle Gallardo MD Other Provider Active St art: September 30, 2024 Dr. Qian Albrecht MD Other Provider Active Start: September 30, 2024 Dr. Russell Todd DO Attending Provider Active Start: September 30, 2024 Dr. Russell Todd DO Other Provider Active Star t: September 30, 2024 Team Status: Active Member Role/Relationship Status Dates Miryam Orozoc [employer]-C Primary Care Provider Active Start: October 01, 2024 Dr. Jhonatan Maxwell DO Emergency Provider Active Start: October 01, 2024 Dr. Michelle Gallardo MD Admit Provider Active St art: October 01, 2024 Dr. Michelle Gallardo MD Other Provider Active St art: October 01, 2024 Dr. Qian Albrecht MD Other Provider Active Start: October 01, 2024 Dr. Alex Acosta , Attending Provider Active S tart: October 01, 2024 Dr. Alex Acosta , Other Provider Active Start : October 01, 2024 Dr. Russell Todd DO Other Provider Active Star t: October 01, 2024 Team Status: Active Member Role/Relationship Status Dates Miryam Orozco [employer]-C Primary Care Provider Active Start: October 02, 2024 Dr. Jhonatan Maxwell DO Emergency Provider Active Start: October 02, 2024 Dr. Michelle Gallardo MD Admit Provider Active St art: October 02, 2024 Dr. Michelle Gallardo MD Other Provider Active St art: October 02, 2024 Dr. Qian Albrecht MD Other Provider Active Start: October 02, 2024 Dr. Alex Acosta , DO Attending Provider Active S tart: October 02, 2024 Dr. Alex Acosta , DO Other Provider Active Start : October 02, 2024 Dr. Russell Todd , DO Other Provider Active Star t: October 02, 2024 Team Status: Active Member Role/Relationship Status Dates Miryam Orozco [employer]-C Primary Care Provider Active Start: October 03, 2024 Dr. Jhonatan Maxwell , Emergency Provider Active Start: October 03, 2024 Dr. Michelle Gallardo MD Admit Provider Active St art: October 03, 2024 Dr. Michelle Gallardo MD Other Provider Active St art: October 03, 2024 Dr. Qian Albrecht MD Other Provider Active Start: October 03, 2024 Dr. Alex Acosta , DO Attending Provider Active S tart: October 03, 2024 Dr. Alex Acosta , DO Other Provider Active Start : October 03, 2024 Dr. Russell Todd , DO Other Provider Active Star t: October 03, 2024 Team Status: Active Member Role/Relationship Status Dates Miryam Orozco [employer]-C Primary Care Provider Active Start: October 04, 2024 Dr. Jhonatan Maxwell DO Emergency Provider Active Start: October 04, 2024 Dr. Michelle Gallardo MD Admit Provider Active St art: October 04, 2024 Dr. Michelle Gallardo MD Other Provider Active St art: October 04, 2024 Dr. Qian Albrecht MD Other Provider Active Start: October 04, 2024 Dr. Alex Acosta , DO Attending Provider Active S tart: October 04, 2024 Dr. Alex Acosta , Other Provider Active Start : October 04, 2024 Dr. Russell Todd DO Other Provider Active Star t: October 04, 2024 Team Status: Active Member Role/Relationship Status Dates Miryam Orozco [employer]-C Primary Care Provider Active Start: October 04, 2024 Dr. Gautam Hardy MD Admit Provider Active Star t: October 04, 2024 Dr. Gautam Hardy MD Attending Provider Active Start: October 04, 2024 Dr. Gautam Hardy MD Referring Provider Active Start: October 04, 2024 Dr. Qian Albrecht MD Other Provider Active Start: October 04, 2024 Team Status: Active Member Role/Relationship Status Dates Miryam Orozco [employer]-C Primary Care Provider Active Start: October 10, 2024 Dr. Gonzalo Lomax MD Attending Provider Active Start: October 10, 2024 Dr. Gonzalo Lomax MD Referring Provider Active Start: October 10, 2024 Team Status: Active Member Role/Relationship Status Dates Miryam Orozco [employer]-C Primary Care Provider Active Start: October 10, 2024 Dr. Gonzalo Loamx MD Attending Provider Active Start: October 10, 2024 Dr. Gonzalo Lomax MD Referring Provider Active Start: October 10, 2024 Dr. Gonzalo Lomax MD Other Provider Active Star t: October 10, 2024 Team Status: Active Member Role/Relationship Status Dates Miryam Orozco [employer]-C Primary Care Provider Active Start: October 11, 2024 Dr. Gautam Hardy MD Attending Provider Active Start: October 11, 2024 Dr. Gautam Hardy MD Referring Provider Active Start: October 11, 2024 Team Status: Active Member Role/Relationship Status Dates Miryam Orozco [employer] Primary Care Provider Active Start: October 11, 2024 Dr. Russell Gonzalez MD Attending Provider Active S tart: October 11, 2024 Team Status: Inactive Member Role/Relationship Status Dates Miryam Orozco [employer] Primary Care Provider Active Start: October 12, 2024 End: October 12, 2024 Dr. Alexis Friend MD Emergency Provider Active Sta rt: October 12, 2024 End: October 12, 2024 Team Status: Active Member Role/Relationship Status Dates Miryam Orozco [employer] Primary Care Provider Active Start: June 20, 2024 Gustavo MANZO MD Attending Provider Active Start: June 20, 2024 Team Status: Inactive Member Role/Relationship Status Dates Miryam Orozco [employer] Primary Care Provider Active Start: June 22, 2024 End: June 22, 2024 Minna Tickton [employer], [employer] Attending Provider Active Start: June 22, 2024 End: June 22, 2024 Team Status: Active Member Role/Relationship Status Dates Miryam Orozco , [employer] Primary Care Provider Active Start: June 27, 2024 Gustavo MANZO MD Attending Provider Active Start: June 27, 2024 Team Status: Active Member Role/Relationship Status Dates Miryam Orozco , [employer] Primary Care Provider Active Start: July 04, 2024 Gustavo MANZO MD Attending Provider Active Start: July 04, 2024 Team Status: Active Member Role/Relationship Status Dates Miryam Orozco , [employer] Primary Care Provider Active Start: July 11, 2024 Gustavo MANZO MD Attending Provider Active Start: July 11, 2024 Gustavo MANZO MD Referring Provider Active Start: July 11, 2024 Team Status: Active Member Role/Relationship Status Dates Miryam Orozco , [employer] Primary Care Provider Active Start: July 18, 2024 Gustavo MANZO MD Attending Provider Active Start: July 18, 2024 Team Status: Inactive Member Role/Relationship Status Dates Miryam Orozco , [employer] Primary Care Provider Active Start: July 20, 2024 End: July 20, 2024 Minna Villarreal [employer], [employer] Attending Provider Active Start: July 20, 2024 End: July 20, 2024 Team Status: Active Member Role/Relationship Status Dates Miryam Orozco , [employer] Primary Care Provider Active Start: July 25, 2024 Gustavo MANZO MD Attending Provider Active Start: July 25, 2024 Team Status: Inactive Member Role/Relationship Status Dates Miryam Orozco , [employer] Primary Care Provider Active Start: July 29, 2024 End: July 29, 2024 Dr. Jean Paul Ha DO Attending Provider Active Start : July 29, 2024 End: July 29, 2024 Dr. Jean Paul Ha DO Emergency Provider Active Start : July 29, 2024 End: July 29, 2024 Team Status: Active Member Role/Relationship Status Dates Miryam Orozco , [employer] Primary Care Provider Active Start: August 01, 2024 Gustavo MANZO MD Attending Provider Active Start: August 01, 2024 Gustavo MANZO MD Referring Provider Active Start: August 01, 2024 Team Status: Active Member Role/Relationship Status Dates Miryam Serrapat , [employer] Primary Care Provider Active Start: August 08, 2024 Gustavo MANZO MD Attending Provider Active Start: August 08, 2024 Team Status: Inactive Member Role/Relationship Status Dates Miryampoonam Kimballhopat , [employer] Primary Care Provider Active Start: August 12, 2024 End: August 12, 2024 Miryam Orozco , [employer] Referring Provider Active Start: August 12, 2024 End: August 12, 2024 Dr. Gonzalo Lomax MD Attending Provider Active Start: August 12, 2024 End: August 12, 2024 Team Status: Active Member Role/Relationship Status Dates Miryam Orozco , [employer] Primary Care Provider Active Start: August 15, 2024 Dr. Gonzalo Lomax MD Attending Provider Active Start: August 15, 2024 Dr. Gonzalo Lomax MD Referring Provider Active Start: August 15, 2024 Dr. Gonzalo Lomax MD Other Provider Active Star t: August 15, 2024 Team Status: Active Member Role/Relationship Status Dates Miryam Orozco , [employer] Primary Care Provider Active Start: August 16, 2024 Gustavo MANZO MD Attending Provider Active Start: August 16, 2024 Team Status: Active Member Role/Relationship Status Dates Miryam Orozco , [employer] Primary Care Provider Active Start: August 18, 2024 Gustavo MANZO MD Attending Provider Active Start: August 18, 2024 Team Status: Active Member Role/Relationship Status Dates Miryam Orozco , [employer] Primary Care Provider Active Start: August 22, 2024 Gustavo MANZO MD Attending Provider Active Start: August 22, 2024 Gustavo MANZO MD Referring Provider Active Start: August 22, 2024 Team Status: Active Member Role/Relationship Status Dates Miryam Orozco , [employer] Primary Care Provider Active Start: August 22, 2024 Dr. Gonzalo Lomax MD Attending Provider Active Start: August 22, 2024 Dr. Gonzalo Lomax MD Referring Provider Active Start: August 22, 2024 Dr. Gonzalo Lomax MD Other Provider Active Star t: August 22, 2024 Team Status: Inactive Member Role/Relationship Status Dates Miryampoonam Kimballhopat , [employer] Primary Care Provider Active Start: September 01, 2024 End: September 03, 2024 Dr. Gonzalo Lomax MD Attending Provider Active Start: September 01, 2024 End: September 03, 2024 Dr. Gonzalo Lomax MD Referring Provider Active Start: September 01, 2024 End: September 03, 2024 Team Status: Active Member Role/Relationship Status Dates Miryampoonam Kimballhof , [employer] Primary Care Provider Active Start: September 01, 2024 Dr. Gonzalo Lomax MD Attending Provider Active Start: September 01, 2024 Dr. Gonzalo Lomax MD Referring Provider Active Start: September 01, 2024 Dr. Gonzalo Lomax MD Other Provider Active Star t: September 01, 2024 Team Status: Inactive Member Role/Relationship Status Dates Miryam Tannhof , [employer] Primary Care Provider Active Start: September 05, 2024 End: September 05, 2024 Miryam Jigarhof , [employer] Referring Provider Active Start: September 05, 2024 End: September 05, 2024 Dr. Mehdi Womack MD Attending Provider Active Start: September 05, 2024 End: September 05, 2024 Team Status: Inactive Member Role/Relationship Status Dates Miryam Tannhof , [employer] Primary Care Provider Active Start: September 06, 2024 End: September 06, 2024 Dr. Gonzalo Lomax MD Attending Provider Active Start: September 06, 2024 End: September 06, 2024 Dr. Gonzalo Lomax MD Referring Provider Active Start: September 06, 2024 End: September 06, 2024 Team Status: Active Member Role/Relationship Status Dates Miryampoonam Kimballhof , [employer] Primary Care Provider Active Start: September 06, 2024 Dr. Gonzalo Lomax MD Attending Provider Active Start: September 06, 2024 Dr. Gonzalo Lomax MD Referring Provider Active Start: September 06, 2024 Dr. Gonzalo Lomax MD Other Provider Active Star t: September 06, 2024 Team Status: Active Member Role/Relationship Status Dates Miryampoonam Kimballhof , [employer] Primary Care Provider Active Start: September 12, 2024 Dr. Gonzalo Lomax MD Attending Provider Active Start: September 12, 2024 Dr. Gonzalo Lomax MD Referring Provider Active Start: September 12, 2024 Dr. Gonzalo Lomax MD Other Provider Active Star t: September 12, 2024 Team Status: Inactive Member Role/Relationship Status Dates Miryam Orozco [employer] Primary Care Provider Active Start: September 19, 2024 End: October 03, 2024 Dr. Gonzalo Lomax MD Attending Provider Active Start: September 19, 2024 End: October 03, 2024 Dr. Gonzalo Lomax MD Referring Provider Active Start: September 19, 2024 End: October 03, 2024 Team Status: Active Member Role/Relationship Status Dates Miryam Orozco [employer] Primary Care Provider Active Start: September 20, 2024 Dr. Gonzalo Lomax MD Attending Provider Active Start: September 20, 2024 Dr. Gonzalo oLmax MD Referring Provider Active Start: September 20, 2024 Dr. Gonzalo Lomax MD Other Provider Active Star t: September 20, 2024 Team Status: Inactive Member Role/Relationship Status Dates Miryam Orozco [employer] Primary Care Provider Active Start: September 28, 2024 End: October 04, 2024 Dr. Jhonatan Maxwell DO Emergency Provider Active Start: September 28, 2024 End: October 04, 2024 Dr. Michelle Gallardo MD Admit Provider Active St art: September 28, 2024 End: October 04, 2024 Dr. Michelle Gallardo MD Other Provider Active St art: September 28, 2024 End: October 04, 2024 Dr. Qian Albrecht MD Other Provider Active Start: September 28, 2024 End: October 04, 2024 Dr. Alex Acosta DO Attending Provider Active S tart: September 28, 2024 End: October 04, 2024 Dr. Russell Todd DO Other Provider Active Star t: September 28, 2024 End: October 04, 2024 Team Status: Active Member Role/Relationship Status Dates Miryam Orozco [employer] Primary Care Provider Active Start: September 29, 2024 Dr. Jhonatan Maxwell DO Emergency Provider Active Start: September 29, 2024 Dr. Michelle Gallardo MD Admit Provider Active St art: September 29, 2024 Dr. Michelle Gallardo MD Other Provider Active St art: September 29, 2024 Dr. Qian Albrecht MD Other Provider Active Start: September 29, 2024 Dr. Russell Todd DO Attending Provider Active Start: September 29, 2024 Dr. Russell Todd DO Other Provider Active Star t: September 29, 2024 Team Status: Active Member Role/Relationship Status Dates Miryam Orozco [employer] Primary Care Provider Active Start: September 30, 2024 Dr. Jhonatan Maxwell DO Emergency Provider Active Start: September 30, 2024 Dr. Michelle Gallardo MD Admit Provider Active St art: September 30, 2024 Dr. Michelle Gallardo MD Other Provider Active St art: September 30, 2024 Dr. Qian Albrecht MD Other Provider Active Start: September 30, 2024 Dr. Russell Todd DO Attending Provider Active Start: September 30, 2024 Dr. Russell Todd DO Other Provider Active Star t: September 30, 2024 Team Status: Active Member Role/Relationship Status Dates Miryam Orozco NP-C Primary Care Provider Active Start: October 01, 2024 Dr. Jhonatan Maxwell DO Emergency Provider Active Start: October 01, 2024 Dr. Michelle Gallardo MD Admit Provider Active St art: October 01, 2024 Dr. Michelle Gallardo MD Other Provider Active St art: October 01, 2024 Dr. Qian Albrecht MD Other Provider Active Start: October 01, 2024 Dr. Alex Acosta , Attending Provider Active S tart: October 01, 2024 Dr. Alex Acosta DO Other Provider Active Start : October 01, 2024 Dr. Russell Todd DO Other Provider Active Star t: October 01, 2024 Team Status: Active Member Role/Relationship Status Dates Miryam Orozco NP-C Primary Care Provider Active Start: October 02, 2024 Dr. Jhonatan Maxwell DO Emergency Provider Active Start: October 02, 2024 Dr. Michelle Gallardo MD Admit Provider Active St art: October 02, 2024 Dr. Michelle Gallardo MD Other Provider Active St art: October 02, 2024 Dr. Qian Albrecht MD Other Provider Active Start: October 02, 2024 Dr. Alex Acosta , DO Attending Provider Active S tart: October 02, 2024 Dr. Alex Acosta , DO Other Provider Active Start : October 02, 2024 Dr. Russell Todd , DO Other Provider Active Star t: October 02, 2024 Team Status: Active Member Role/Relationship Status Dates Miryam Orozco [employer] Primary Care Provider Active Start: October 03, 2024 Dr. Jhonatan Maxwell , DO Emergency Provider Active Start: October 03, 2024 Dr. Michelle Gallardo MD Admit Provider Active St art: October 03, 2024 Dr. Michelle Gallardo MD Other Provider Active St art: October 03, 2024 Dr. Qian Albrecht MD Other Provider Active Start: October 03, 2024 Dr. Alex Acosta , DO Attending Provider Active S tart: October 03, 2024 Dr. Alex Acosta , Other Provider Active Start : October 03, 2024 Dr. Russell Todd , DO Other Provider Active Star t: October 03, 2024 Team Status: Active Member Role/Relationship Status Dates Miryam Orozco NP-C Primary Care Provider Active Start: October 04, 2024 Dr. Jhonatan Maxwell , DO Emergency Provider Active Start: October 04, 2024 Dr. Michelle Gallardo MD Admit Provider Active St art: October 04, 2024 Dr. Michelle Gallardo MD Other Provider Active St art: October 04, 2024 Dr. Qian Albrecht MD Other Provider Active Start: October 04, 2024 Dr. Alex Acosta , Attending Provider Active S tart: October 04, 2024 Dr. Alex Acosta , DO Other Provider Active Start : October 04, 2024 Dr. Russell Todd DO Other Provider Active Star t: October 04, 2024 Team Status: Active Member Role/Relationship Status Dates Miryam Orozco NP-C Primary Care Provider Active Start: October 04, 2024 Dr. Gautam Hardy MD Admit Provider Active Star t: October 04, 2024 Dr. Gautam Hardy MD Attending Provider Active Start: October 04, 2024 Dr. Gautam Hardy MD Referring Provider Active Start: October 04, 2024 Dr. Qian Albrecht MD Other Provider Active Start: October 04, 2024 Team Status: Active Member Role/Relationship Status Dates Miryam Orozco , [employer] Primary Care Provider Active Start: October 10, 2024 Dr. Gonzalo Lomax MD Attending Provider Active Start: October 10, 2024 Dr. Gonzalo Lomax MD Referring Provider Active Start: October 10, 2024 Team Status: Active Member Role/Relationship Status Dates Miryam Orozco , [employer] Primary Care Provider Active Start: October 10, 2024 Dr. Gonzalo Lomax MD Attending Provider Active Start: October 10, 2024 Dr. Gonzalo Lomax MD Referring Provider Active Start: October 10, 2024 Dr. Gonzalo Lomax MD Other Provider Active Star t: October 10, 2024 Team Status: Active Member Role/Relationship Status Dates Miryam Orozco , [employer] Primary Care Provider Active Start: October 11, 2024 Dr. Gautam Hardy MD Attending Provider Active Start: October 11, 2024 Dr. Gautam Hardy MD Referring Provider Active Start: October 11, 2024 Team Status: Active Member Role/Relationship Status Dates Miryam Orozco , [employer] Primary Care Provider Active Start: October 11, 2024 Dr. Russell Gonzalez MD Attending Provider Active S tart: October 11, 2024 Team Status: Inactive Member Role/Relationship Status Dates Miryam Orozco , [employer] Primary Care Provider Active Start: October 12, 2024 End: October 12, 2024 Dr. Alexis Friend MD Emergency Provider Active Sta rt: October 12, 2024 End: October 12, 2024 Team Status: Inactive Member Role/Relationship Status Dates Miryampoonam Orozco , [employer] Primary Care Provider Active Start: October 14, 2024 End: October 14, 2024 Miryam Orozco , [employer] Referring Provider Active Start: October 14, 2024 End: October 14, 2024 Dr. William Cruz DO Attending Provider Active Start: October 14, 2024 End: October 14, 2024 Team Status: Active Member Role/Relationship Status Dates Miryam Orozco , [employer] Primary Care Provider Active Start: October 14, 2024 Miryam Orozco , [employer] Referring Provider Active Start: October 14, 2024 Dr. William Cruz DO Attending Provider Active Start: October 14, 2024 Dr. William Friend , DO Other Provider Active St art: October 14, 2024 Team Status: Inactive Member Role/Relationship Status Dates Miryam Orozco [employer] Primary Care Provider Active Start: October 11, 2024 End: October 11, 2024 Dr. Gautam Hardy MD Attending Provider Active Start: October 11, 2024 End: October 11, 2024 Dr. Gautam Hardy MD Referring Provider Active Start: October 11, 2024 End: October 11, 2024 Team Status: Inactive Member Role/Relationship Status Dates Miryam Orozco [employer] Primary Care Provider Active Start: June 22, 2024 End: June 22, 2024 Minna Villarreal NP, [employer] Attending Provider Active Start: June 22, 2024 End: June 22, 2024 Team Status: Active Member Role/Relationship Status Dates Miryam Orozco [employer] Primary Care Provider Active Start: June 27, 2024 Gustavo MANZO MD Attending Provider Active Start: June 27, 2024 Team Status: Active Member Role/Relationship Status Dates Miryam Orozco [employer] Primary Care Provider Active Start: July 04, 2024 Gustavo MANZO MD Attending Provider Active Start: July 04, 2024 Team Status: Active Member Role/Relationship Status Dates Miryam Orozco [employer] Primary Care Provider Active Start: July 11, 2024 Gustavo MANZO MD Attending Provider Active Start: July 11, 2024 Gustavo MANZO MD Referring Provider Active Start: July 11, 2024 Team Status: Active Member Role/Relationship Status Dates Miryam Orozco [employer] Primary Care Provider Active Start: July 18, 2024 Gustavo MANZO MD Attending Provider Active Start: July 18, 2024 Team Status: Inactive Member Role/Relationship Status Dates Miryam Orozco [employer] Primary Care Provider Active Start: July 20, 2024 End: July 20, 2024 Minna Villarreal NP, [employer] Attending Provider Active Start: July 20, 2024 End: July 20, 2024 Team Status: Active Member Role/Relationship Status Dates Miryam Orozco [employer] Primary Care Provider Active Start: July 25, 2024 Gustavo MANZO MD Attending Provider Active Start: July 25, 2024 Team Status: Inactive Member Role/Relationship Status Dates Miryam Orozco , [employer] Primary Care Provider Active Start: July 29, 2024 End: July 29, 2024 Dr. Jean Paul Ha DO Attending Provider Active Start : July 29, 2024 End: July 29, 2024 Dr. Jean Paul Ha DO Emergency Provider Active Start : July 29, 2024 End: July 29, 2024 Team Status: Active Member Role/Relationship Status Dates Miryam Orozco , [employer] Primary Care Provider Active Start: August 01, 2024 Gustavo MANZO MD Attending Provider Active Start: August 01, 2024 Gustavo MANZO MD Referring Provider Active Start: August 01, 2024 Team Status: Active Member Role/Relationship Status Dates Miryampoonam Orozco , [employer] Primary Care Provider Active Start: August 08, 2024 Gustavo MANZO MD Attending Provider Active Start: August 08, 2024 Team Status: Inactive Member Role/Relationship Status Dates Miryampoonam Orozco , [employer] Primary Care Provider Active Start: August 12, 2024 End: August 12, 2024 Miryam Orozco , [employer]-C Referring Provider Active Start: August 12, 2024 End: August 12, 2024 Dr. Gonzalo Lomax MD Attending Provider Active Start: August 12, 2024 End: August 12, 2024 Team Status: Active Member Role/Relationship Status Dates Miryam Orozco , [employer] Primary Care Provider Active Start: August 15, 2024 Dr. Gonzalo Lomax MD Attending Provider Active Start: August 15, 2024 Dr. Gonzalo Loamx MD Referring Provider Active Start: August 15, 2024 Dr. Gonzalo Lomax MD Other Provider Active Star t: August 15, 2024 Team Status: Active Member Role/Relationship Status Dates Miryam Orozco , [employer] Primary Care Provider Active Start: August 16, 2024 Gustavo MANZO MD Attending Provider Active Start: August 16, 2024 Team Status: Active Member Role/Relationship Status Dates Miryam Orozco , [employer] Primary Care Provider Active Start: August 18, 2024 Gustavo MANZO MD Attending Provider Active Start: August 18, 2024 Team Status: Active Member Role/Relationship Status Dates Miryam Orozco , [employer] Primary Care Provider Active Start: August 22, 2024 Gustavo MANZO MD Attending Provider Active Start: August 22, 2024 Gustavo MANZO MD Referring Provider Active Start: August 22, 2024 Team Status: Active Member Role/Relationship Status Dates Miryampoonam rOozco , [employer] Primary Care Provider Active Start: August 22, 2024 Dr. Gonzalo Lomax MD Attending Provider Active Start: August 22, 2024 Dr. Gonzalo Lomax MD Referring Provider Active Start: August 22, 2024 Dr. Gonzalo Lomax MD Other Provider Active Star t: August 22, 2024 Team Status: Inactive Member Role/Relationship Status Dates Miryampoonam Orozco , [employer] Primary Care Provider Active Start: September 01, 2024 End: September 03, 2024 Dr. Gonzalo Lomax MD Attending Provider Active Start: September 01, 2024 End: September 03, 2024 Dr. Gonzalo Lomax MD Referring Provider Active Start: September 01, 2024 End: September 03, 2024 Team Status: Active Member Role/Relationship Status Dates Miryam Orozco , [employer] Primary Care Provider Active Start: September 01, 2024 Dr. Gonzalo Lomax MD Attending Provider Active Start: September 01, 2024 Dr. Gonzalo Lomax MD Referring Provider Active Start: September 01, 2024 Dr. Gonzalo Lomax MD Other Provider Active Star t: September 01, 2024 Team Status: Inactive Member Role/Relationship Status Dates Miryampoonam Kimballhof , [employer] Primary Care Provider Active Start: September 05, 2024 End: September 05, 2024 Miryampoonam Orozco , [employer]-C Referring Provider Active Start: September 05, 2024 End: September 05, 2024 Dr. Mehdi Womack MD Attending Provider Active Start: September 05, 2024 End: September 05, 2024 Team Status: Inactive Member Role/Relationship Status Dates Miryampoonam Kimballhof , [employer] Primary Care Provider Active Start: September 06, 2024 End: September 06, 2024 Dr. Gonzalo Lomax MD Attending Provider Active Start: September 06, 2024 End: September 06, 2024 Dr. Gonzalo Lomax MD Referring Provider Active Start: September 06, 2024 End: September 06, 2024 Team Status: Active Member Role/Relationship Status Dates Miryam Orozco [employer] Primary Care Provider Active Start: September 06, 2024 Dr. Gonzalo Lomax MD Attending Provider Active Start: September 06, 2024 Dr. Gonzalo Lomax MD Referring Provider Active Start: September 06, 2024 Dr. Gonzalo Lomax MD Other Provider Active Star t: September 06, 2024 Team Status: Active Member Role/Relationship Status Dates Miryam Orozco [employer] Primary Care Provider Active Start: September 12, 2024 Dr. Gonzalo Lomax MD Attending Provider Active Start: September 12, 2024 Dr. Gonzalo Lomax MD Referring Provider Active Start: September 12, 2024 Dr. Gonzalo Lomax MD Other Provider Active Star t: September 12, 2024 Team Status: Inactive Member Role/Relationship Status Dates Miryam Orozco , [employer] Primary Care Provider Active Start: September 19, 2024 End: October 03, 2024 Dr. Gonzalo Lomax MD Attending Provider Active Start: September 19, 2024 End: October 03, 2024 Dr. Gonzalo Lomax MD Referring Provider Active Start: September 19, 2024 End: October 03, 2024 Team Status: Active Member Role/Relationship Status Dates Miryam Orozco [employer] Primary Care Provider Active Start: September 20, 2024 Dr. Gonzalo Lomax MD Attending Provider Active Start: September 20, 2024 Dr. Gonzalo Lomax MD Referring Provider Active Start: September 20, 2024 Dr. Gonzalo Lomax MD Other Provider Active Star t: September 20, 2024 Team Status: Inactive Member Role/Relationship Status Dates Miryam Orozco , [employer] Primary Care Provider Active Start: September 28, 2024 End: October 04, 2024 Dr. Jhonatan Maxwell DO Emergency Provider Active Start: September 28, 2024 End: October 04, 2024 Dr. Michelle Gallardo MD Admit Provider Active St art: September 28, 2024 End: October 04, 2024 Dr. Michelle Gallardo MD Other Provider Active St art: September 28, 2024 End: October 04, 2024 Dr. Qian Albrecht MD Other Provider Active Start: September 28, 2024 End: October 04, 2024 Dr. Alex Acosta DO Attending Provider Active S tart: September 28, 2024 End: October 04, 2024 Dr. Russell Todd DO Other Provider Active Star t: September 28, 2024 End: October 04, 2024 Team Status: Active Member Role/Relationship Status Dates Miryam Orozco [employer] Primary Care Provider Active Start: September 29, 2024 Dr. Jhonatan Maxwell DO Emergency Provider Active Start: September 29, 2024 Dr. Michelle Gallardo MD Admit Provider Active St art: September 29, 2024 Dr. Michelle Gallardo MD Other Provider Active St art: September 29, 2024 Dr. Qian Albrecht MD Other Provider Active Start: September 29, 2024 Dr. Russell Todd DO Attending Provider Active Start: September 29, 2024 Dr. Russell Todd DO Other Provider Active Star t: September 29, 2024 Team Status: Active Member Role/Relationship Status Dates Miryam Orozco -C Primary Care Provider Active Start: September 30, 2024 Dr. Jhonatan Maxwell DO Emergency Provider Active Start: September 30, 2024 Dr. Michelle Gallardo MD Admit Provider Active St art: September 30, 2024 Dr. Michelle Gallardo MD Other Provider Active St art: September 30, 2024 Dr. Qian Albrecht MD Other Provider Active Start: September 30, 2024 Dr. Russell Todd DO Attending Provider Active Start: September 30, 2024 Dr. Russell Todd DO Other Provider Active Star t: September 30, 2024 Team Status: Active Member Role/Relationship Status Dates Miryam Orozco -C Primary Care Provider Active Start: October 01, 2024 Dr. Jhonatan Maxwell DO Emergency Provider Active Start: October 01, 2024 Dr. Michelle Gallardo MD Admit Provider Active St art: October 01, 2024 Dr. Michelle Gallardo MD Other Provider Active St art: October 01, 2024 Dr. Qian Albrecht MD Other Provider Active Start: October 01, 2024 Dr. Alex Acosta DO Attending Provider Active S tart: October 01, 2024 Dr. Alex Acosta DO Other Provider Active Start : October 01, 2024 Dr. Russell Jopperi , DO Other Provider Active Star t: October 01, 2024 Team Status: Active Member Role/Relationship Status Dates Miryam Orozco NP-C Primary Care Provider Active Start: October 02, 2024 Dr. Jhonatan Maxwell , DO Emergency Provider Active Start: October 02, 2024 Dr. Michelle Gallardo MD Admit Provider Active St art: October 02, 2024 Dr. Michelle Gallardo MD Other Provider Active St art: October 02, 2024 Dr. Qian Albrecht MD Other Provider Active Start: October 02, 2024 Dr. Alex Acosta , DO Attending Provider Active S tart: October 02, 2024 Dr. Alex Acosta , Other Provider Active Start : October 02, 2024 Dr. Russell Todd , DO Other Provider Active Star t: October 02, 2024 Team Status: Active Member Role/Relationship Status Dates Miryam Orozco [employer]-C Primary Care Provider Active Start: October 03, 2024 Dr. Jhonatan Maxwell DO Emergency Provider Active Start: October 03, 2024 Dr. Michelle Gallardo MD Admit Provider Active St art: October 03, 2024 Dr. Michelle Gallardo MD Other Provider Active St art: October 03, 2024 Dr. Qian Albrecht MD Other Provider Active Start: October 03, 2024 Dr. Alex Acosta , Attending Provider Active S tart: October 03, 2024 Dr. Alex Acosta , DO Other Provider Active Start : October 03, 2024 Dr. Rsusell Todd , DO Other Provider Active Star t: October 03, 2024 Team Status: Active Member Role/Relationship Status Dates Miryam Orozco [employer]-C Primary Care Provider Active Start: October 04, 2024 Dr. Jhonatan Maxwell DO Emergency Provider Active Start: October 04, 2024 Dr. Michelle Gallardo MD Admit Provider Active St art: October 04, 2024 Dr. Michelle Gallardo MD Other Provider Active St art: October 04, 2024 Dr. Qian Albrecht MD Other Provider Active Start: October 04, 2024 Dr. Alex Acosta , DO Attending Provider Active S tart: October 04, 2024 Dr. Alex Acosta , Other Provider Active Start : October 04, 2024 Dr. Russell Todd DO Other Provider Active Star t: October 04, 2024 Team Status: Inactive Member Role/Relationship Status Dates Miryam Orozco , [employer]-C Primary Care Provider Active Start: October 04, 2024 End: October 20, 2024 Dr. Gautam Hardy MD Admit Provider Active Star t: October 04, 2024 End: October 20, 2024 Dr. Gautam Hardy MD Attending Provider Active Start: October 04, 2024 End: October 20, 2024 Dr. Gautam Hardy MD Referring Provider Active Start: October 04, 2024 End: October 20, 2024 Dr. Qian Albrecht MD Other Provider Active Start: October 04, 2024 End: October 20, 2024 Team Status: Active Member Role/Relationship Status Dates Miryampoonam Orozco , [employer]-C Primary Care Provider Active Start: October 10, 2024 Dr. Gonzalo Lomax MD Attending Provider Active Start: October 10, 2024 Dr. Gonzalo Lomax MD Referring Provider Active Start: October 10, 2024 Team Status: Active Member Role/Relationship Status Dates Miryam Orozco , [employer]-C Primary Care Provider Active Start: October 10, 2024 Dr. Gonzalo Lomax MD Attending Provider Active Start: October 10, 2024 Dr. Gonzalo Lomax MD Referring Provider Active Start: October 10, 2024 Dr. Gonzalo Lomax MD Other Provider Active Star t: October 10, 2024 Team Status: Inactive Member Role/Relationship Status Dates Miryam Orozco , [employer]-C Primary Care Provider Active Start: October 11, 2024 End: October 11, 2024 Dr. Gautam Hardy MD Attending Provider Active Start: October 11, 2024 End: October 11, 2024 Dr. Gautam Hardy MD Referring Provider Active Start: October 11, 2024 End: October 11, 2024 Team Status: Active Member Role/Relationship Status Dates Miryam Orozco , [employer]-C Primary Care Provider Active Start: October 11, 2024 Dr. Russell Gonzalez MD Attending Provider Active S tart: October 11, 2024 Team Status: Inactive Member Role/Relationship Status Dates Miryampoonam Kimballhopat , [employer]-C Primary Care Provider Active Start: October 12, 2024 End: October 12, 2024 Dr. Alexis Friend MD Attending Provider Active Sta rt: October 12, 2024 End: October 12, 2024 Dr. Alexis Friend MD Emergency Provider Active Sta rt: October 12, 2024 End: October 12, 2024 Team Status: Inactive Member Role/Relationship Status Dates MARILEE AguillonC Primary Care Provider Active Start: October 14, 2024 End: October 14, 2024 Miryam Orozco NP-Angel Referring Provider Active Start: October 14, 2024 End: October 14, 2024 Dr. William Cruz , Attending Provider Active Start: October 14, 2024 End: October 14, 2024 Team Status: Active Member Role/Relationship Status Dates BROOKLYN Aguillon Primary Care Provider Active Start: October 14, 2024 BROOK[place]N Aguillon Referring Provider Active Start: October 14, 2024 Dr. William Cruz DO Attending Provider Active Start: October 14, 2024 Dr. William Cruz , Other Provider Active St art: October 14, 2024 Computer Systems Design Analyst Relationship Specialty Start Date End Date Lizy Capone MD [address] [place] [address] PCP - General 11/15/08 Mulugeta Jennings APRN.SAGGER MAKER [address] [place] [address] [facility] Computer Systems Design Analyst Relationship Specialty Start Date End Date Lizy Capone MD [address] [place] [address] PCP - General 11/15/08 Muluegta Jennings APRN.SAGGER MAKER [address] [place] [address] [facility] 03/22/24 Team Status: Active Member Role/Relationship Status Dates Miryam Tannhof , [employer]-C Primary Care Provider Active Start: June 27, 2024 Gustavo MANZO MD Attending Provider Active Start: June 27, 2024 Team Status: Active Member Role/Relationship Status Dates Miryam Orozco [employer]-C Primary Care Provider Active Start: July 04, 2024 Gustavo MANZO MD Attending Provider Active Start: July 04, 2024 Team Status: Active Member Role/Relationship Status Dates Miryam Orozco [employer]-C Primary Care Provider Active Start: July 11, 2024 Gustavo MANZO MD Attending Provider Active Start: July 11, 2024 Gustavo MANZO MD Referring Provider Active Start: July 11, 2024 Team Status: Active Member Role/Relationship Status Dates Miryam Orozco [employer]-C Primary Care Provider Active Start: July 18, 2024 Gustavo MANZO MD Attending Provider Active Start: July 18, 2024 Team Status: Inactive Member Role/Relationship Status Dates Miryam Orozco [employer]-C Primary Care Provider Active Start: July 20, 2024 End: July 20, 2024 Minna Villarreal NP, [employer]-C Attending Provider Active Start: July 20, 2024 End: July 20, 2024 Team Status: Active Member Role/Relationship Status Dates Miryam Orozco [employer]-C Primary Care Provider Active Start: July 25, 2024 Gustavo MANZO MD Attending Provider Active Start: July 25, 2024 Team Status: Inactive Member Role/Relationship Status Dates Miryam Orozco [employer]-C Primary Care Provider Active Start: July 29, 2024 End: July 29, 2024 Dr. Jean Paul Ha DO Attending Provider Active Start : July 29, 2024 End: July 29, 2024 Dr. Jean Paul Ha DO Emergency Provider Active Start : July 29, 2024 End: July 29, 2024 Team Status: Active Member Role/Relationship Status Dates Miryam Orozco [employer]-C Primary Care Provider Active Start: August 01, 2024 Gustavo MANZO MD Attending Provider Active Start: August 01, 2024 Gustavo MANZO MD Referring Provider Active Start: August 01, 2024 Team Status: Active Member Role/Relationship Status Dates Miryam Tannhof , [employer]-C Primary Care Provider Active Start: August 08, 2024 Gustavo MANZO MD Attending Provider Active Start: August 08, 2024 Team Status: Inactive Member Role/Relationship Status Dates Miryampoonam Kimballhof , [employer]-C Primary Care Provider Active Start: August 12, 2024 End: August 12, 2024 Miryam Orozco , [employer]-C Referring Provider Active Start: August 12, 2024 End: August 12, 2024 Dr. Gonzalo Lomax MD Attending Provider Active Start: August 12, 2024 End: August 12, 2024 Team Status: Active Member Role/Relationship Status Dates Miryampoonam Kimballhopat , [employer]-C Primary Care Provider Active Start: August 15, 2024 Dr. Gonzalo Lomax MD Attending Provider Active Start: August 15, 2024 Dr. Gonzalo Lomax MD Referring Provider Active Start: August 15, 2024 Dr. Gonzalo Lomax MD Other Provider Active Star t: August 15, 2024 Team Status: Active Member Role/Relationship Status Dates Miryampoonam Orozco , [employer]-C Primary Care Provider Active Start: August 16, 2024 Gustavo MANZO MD Attending Provider Active Start: August 16, 2024 Team Status: Active Member Role/Relationship Status Dates Miryampoonam Kimballhopat , [employer]-C Primary Care Provider Active Start: August 18, 2024 Gustavo MANZO MD Attending Provider Active Start: August 18, 2024 Team Status: Active Member Role/Relationship Status Dates Miryampoonam Kimballhopat , [employer]-C Primary Care Provider Active Start: August 22, 2024 Gustavo MANOZ MD Attending Provider Active Start: August 22, 2024 Gustavo MANZO MD Referring Provider Active Start: August 22, 2024 Team Status: Active Member Role/Relationship Status Dates Miryampoonam Orozco , [employer]-C Primary Care Provider Active Start: August 22, 2024 Dr. Gonzalo Lomax MD Attending Provider Active Start: August 22, 2024 Dr. Gonzalo Lomax MD Referring Provider Active Start: August 22, 2024 Dr. Gonzalo Lomax MD Other Provider Active Star t: August 22, 2024 Team Status: Inactive Member Role/Relationship Status Dates Miryampoonam Kimballhof , [employer]-C Primary Care Provider Active Start: September 01, 2024 End: September 03, 2024 Dr. Gonzalo Lomax MD Attending Provider Active Start: September 01, 2024 End: September 03, 2024 Dr. Gonzalo Lomax MD Referring Provider Active Start: September 01, 2024 End: September 03, 2024 Team Status: Active Member Role/Relationship Status Dates Miryam Orozco , [employer]-C Primary Care Provider Active Start: September 01, 2024 Dr. Gonzalo Lomax MD Attending Provider Active Start: September 01, 2024 Dr. Gonzalo Lomax MD Referring Provider Active Start: September 01, 2024 Dr. Gonzalo Lomax MD Other Provider Active Star t: September 01, 2024 Team Status: Inactive Member Role/Relationship Status Dates Miryam Jigarhof , [employer]-C Primary Care Provider Active Start: September 05, 2024 End: September 05, 2024 Miryampoonam Kimballhof , [employer]-C Referring Provider Active Start: September 05, 2024 End: September 05, 2024 Dr. Mehdi Womack MD Attending Provider Active Start: September 05, 2024 End: September 05, 2024 Team Status: Inactive Member Role/Relationship Status Dates Miryampoonam Kimballhof , [employer]-C Primary Care Provider Active Start: September 06, 2024 End: September 06, 2024 Dr. Gonzalo Lomax MD Attending Provider Active Start: September 06, 2024 End: September 06, 2024 Dr. Gonzalo Lomax MD Referring Provider Active Start: September 06, 2024 End: September 06, 2024 Team Status: Active Member Role/Relationship Status Dates Miryam Orozco , [employer]-C Primary Care Provider Active Start: September 06, 2024 Dr. Gonzalo Lomax MD Attending Provider Active Start: September 06, 2024 Dr. Gonzalo Lomax MD Referring Provider Active Start: September 06, 2024 Dr. Gonzalo Lomax MD Other Provider Active Star t: September 06, 2024 Team Status: Active Member Role/Relationship Status Dates Miryam Orozco , [employer]-C Primary Care Provider Active Start: September 12, 2024 Dr. Gonzalo Lomax MD Attending Provider Active Start: September 12, 2024 Dr. Gonzalo Lomax MD Referring Provider Active Start: September 12, 2024 Dr. Gonzalo Lomax MD Other Provider Active Star t: September 12, 2024 Team Status: Inactive Member Role/Relationship Status Dates Miryampoonam Orozco [employer]-C Primary Care Provider Active Start: September 19, 2024 End: October 03, 2024 Dr. Gonzalo Lomax MD Attending Provider Active Start: September 19, 2024 End: October 03, 2024 Dr. Gonzalo Lomax MD Referring Provider Active Start: September 19, 2024 End: October 03, 2024 Team Status: Active Member Role/Relationship Status Dates Miryam Orozco [employer]-C Primary Care Provider Active Start: September 20, 2024 Dr. Gonzalo Lomax MD Attending Provider Active Start: September 20, 2024 Dr. Gonzalo Lomax MD Referring Provider Active Start: September 20, 2024 Dr. Gonzalo Lomax MD Other Provider Active Star t: September 20, 2024 Team Status: Inactive Member Role/Relationship Status Dates Miryam Kimballree [employer]-C Primary Care Provider Active Start: September 28, 2024 End: October 04, 2024 Dr. Jhonatan Maxwell DO Emergency Provider Active Start: September 28, 2024 End: October 04, 2024 Dr. Michelle Gallardo MD Admit Provider Active St art: September 28, 2024 End: October 04, 2024 Dr. Michelle Gallardo MD Other Provider Active St art: September 28, 2024 End: October 04, 2024 Dr. Qian Albrecht MD Other Provider Active Start: September 28, 2024 End: October 04, 2024 Dr. Alex Acosta DO Attending Provider Active S tart: September 28, 2024 End: October 04, 2024 Dr. Russell Todd DO Other Provider Active Star t: September 28, 2024 End: October 04, 2024 Team Status: Active Member Role/Relationship Status Dates Miryam Kimballree [employer]-C Primary Care Provider Active Start: September 29, 2024 Dr. Jhonatan Maxwell DO Emergency Provider Active Start: September 29, 2024 Dr. Michelle Gallardo MD Admit Provider Active St art: September 29, 2024 Dr. Michelle Gallardo MD Other Provider Active St art: September 29, 2024 Dr. Qian Albrecht MD Other Provider Active Start: September 29, 2024 Dr. Russell Todd DO Attending Provider Active Start: September 29, 2024 Dr. Russell Todd DO Other Provider Active Star t: September 29, 2024 Team Status: Active Member Role/Relationship Status Dates Miryam Orozco [employer]-C Primary Care Provider Active Start: September 30, 2024 Dr. Jhonatan Maxwell DO Emergency Provider Active Start: September 30, 2024 Dr. Michelle Gallardo MD Admit Provider Active St art: September 30, 2024 Dr. Michelle Gallardo MD Other Provider Active St art: September 30, 2024 Dr. Qian Albrecht MD Other Provider Active Start: September 30, 2024 Dr. Russell Todd DO Attending Provider Active Start: September 30, 2024 Dr. Russell Todd DO Other Provider Active Star t: September 30, 2024 Team Status: Active Member Role/Relationship Status Dates Miryam Orozco [employer]-C Primary Care Provider Active Start: October 01, 2024 Dr. Jhonatan Maxwell DO Emergency Provider Active Start: October 01, 2024 Dr. Michelle Gallardo MD Admit Provider Active St art: October 01, 2024 Dr. Michelle Gallardo MD Other Provider Active St art: October 01, 2024 Dr. Qian Albrecht MD Other Provider Active Start: October 01, 2024 Dr. Alex Acosta , DO Attending Provider Active S tart: October 01, 2024 Dr. Alex Acosta DO Other Provider Active Start : October 01, 2024 Dr. Russell Todd DO Other Provider Active Star t: October 01, 2024 Team Status: Active Member Role/Relationship Status Dates Miryam Orozco [employer]-C Primary Care Provider Active Start: October 02, 2024 Dr. Jhonatan Maxwell DO Emergency Provider Active Start: October 02, 2024 Dr. Michelle Gallardo MD Admit Provider Active St art: October 02, 2024 Dr. Michelle Gallardo MD Other Provider Active St art: October 02, 2024 Dr. Qian Albrecht MD Other Provider Active Start: October 02, 2024 Dr. Alex Acosta DO Attending Provider Active S tart: October 02, 2024 Dr. Alex Acosta , Other Provider Active Start : October 02, 2024 Dr. Russell Todd DO Other Provider Active Star t: October 02, 2024 Team Status: Active Member Role/Relationship Status Dates Miryampoonam Orozco , [employer]-C Primary Care Provider Active Start: October 03, 2024 Dr. Jhonatan Maxwell DO Emergency Provider Active Start: October 03, 2024 Dr. Michelle Gallardo MD Admit Provider Active St art: October 03, 2024 Dr. Michelle Gallardo MD Other Provider Active St art: October 03, 2024 Dr. Qian Albrecht MD Other Provider Active Start: October 03, 2024 Dr. Alex Acosta DO Attending Provider Active S tart: October 03, 2024 Dr. Alex Acosta DO Other Provider Active Start : October 03, 2024 Dr. Russell Todd , Other Provider Active Star t: October 03, 2024 Team Status: Inactive Member Role/Relationship Status Dates Miryampoonam Kimballhof , [employer]-C Primary Care Provider Active Start: October 04, 2024 Dr. Chayo Hernandez MD Attending Provider Active Start: October 04, 2024 Team Status: Active Member Role/Relationship Status Dates Miryampoonam Serraf , [employer]-C Primary Care Provider Active Start: October 10, 2024 Dr. Gonzalo Lomax MD Attending Provider Active Start: October 10, 2024 Dr. Gonzalo Lomax MD Referring Provider Active Start: October 10, 2024 Dr. Gonzalo Lomax MD Other Provider Active Star t: October 10, 2024 Team Status: Inactive Member Role/Relationship Status Dates Miryampoonam Kimballhof , [employer]-C Primary Care Provider Active Start: October 11, 2024 End: October 11, 2024 Dr. Gautam Hardy MD Attending Provider Active Start: October 11, 2024 End: October 11, 2024 Dr. Gautam Hardy MD Referring Provider Active Start: October 11, 2024 End: October 11, 2024 Team Status: Active Member Role/Relationship Status Dates Miryampoonam Orozco , [employer]-C Primary Care Provider Active Start: October 11, 2024 Dr. Russell Gonzalez MD Attending Provider Active S tart: October 11, 2024 Team Status: Inactive Member Role/Relationship Status Dates Miryampoonam Kimballhof , [employer]-C Primary Care Provider Active Start: October 12, 2024 End: October 12, 2024 Dr. Alexis Friend MD Attending Provider Active Sta rt: October 12, 2024 End: October 12, 2024 Dr. Aleixs Friend MD Emergency Provider Active Sta rt: October 12, 2024 End: October 12, 2024 Team Status: Inactive Member Role/Relationship Status Dates Miryam Orozco , [employer]C Primary Care Provider Active Start: October 14, 2024 End: October 14, 2024 Miryampoonam Orozco , [employer]-C Referring Provider Active Start: October 14, 2024 End: October 14, 2024 Dr. William Cruz DO Attending Provider Active Start: October 14, 2024 End: October 14, 2024 Team Status: Active Member Role/Relationship Status Dates Miryam Orozco , [employer] Primary Care Provider Active Start: October 14, 2024 Miryam Orozco , [employer]-C Referring Provider Active Start: October 14, 2024 Dr. William Cruz DO Attending Provider Active Start: October 14, 2024 Dr. William Cruz DO Other Provider Active St art: October 14, 2024 Team Status: Active Member Role/Relationship Status Dates Miryam Orozco , [employer] Primary Care Provider Active Start: October 24, 2024 Dr. Gonzalo Lomax MD Attending Provider Active Start: October 24, 2024 Dr. Gonzalo Lomax MD Referring Provider Active Start: October 24, 2024 Team Status: Active Member Role/Relationship Status Dates Miryam Orozco , [employer] Primary Care Provider Active Start: October 25, 2024 Dr. Gonzalo Lomax MD Attending Provider Active Start: October 25, 2024 Dr. Gonzalo Lomax MD Referring Provider Active Start: October 25, 2024 Dr. Gonzalo Lomax MD Other Provider Active Star t: October 25, 2024 Team Status: Inactive Member Role/Relationship Status Dates Miryam Orozco , [employer] Primary Care Provider Active Start: October 25, 2024 End: October 25, 2024 Miryam Orozco , [employer]-C Referring Provider Active Start: October 25, 2024 End: October 25, 2024 Dr. Norberto Jackson MD Attending Provider Active S tart: October 25, 2024 End: October 25, 2024 Team Status: Active Member Role/Relationship Status Dates Dr. Lizy Capone MD Primary Care Provider Active Team Status: Active Member Role/Relationship Status Dates Miryam Orozco [employer] Primary Care Provider Active Start: July 04, 2024 Gustavo MANZO MD Attending Provider Active Start: July 04, 2024 Team Status: Active Member Role/Relationship Status Dates Miryam Orozco [employer] Primary Care Provider Active Start: July 11, 2024 Gustavo MANZO MD Attending Provider Active Start: July 11, 2024 Gustavo MANZO MD Referring Provider Active Start: July 11, 2024 Team Status: Active Member Role/Relationship Status Dates Miryam Orozco , [employer] Primary Care Provider Active Start: July 18, 2024 Gustavo MANZO MD Attending Provider Active Start: July 18, 2024 Team Status: Inactive Member Role/Relationship Status Dates Miryam Orozco , [employer] Primary Care Provider Active Start: July 20, 2024 End: July 20, 2024 Minna Villarreal NP, [employer]C Attending Provider Active Start: July 20, 2024 End: July 20, 2024 Team Status: Active Member Role/Relationship Status Dates Miryam Orozco [employer]C Primary Care Provider Active Start: July 25, 2024 Gustavo MANZO MD Attending Provider Active Start: July 25, 2024 Team Status: Inactive Member Role/Relationship Status Dates Miryam Orozco , [employer] Primary Care Provider Active Start: July 29, 2024 End: July 29, 2024 Dr. Jean Paul Ha DO Attending Provider Active Start : July 29, 2024 End: July 29, 2024 Dr. Jean Paul Ha DO Emergency Provider Active Start : July 29, 2024 End: July 29, 2024 Team Status: Active Member Role/Relationship Status Dates Miryam Orozco [employer] Primary Care Provider Active Start: August 01, 2024 Gustavo MANZO MD Attending Provider Active Start: August 01, 2024 Gustavo MANZO MD Referring Provider Active Start: August 01, 2024 Team Status: Active Member Role/Relationship Status Dates Miryam Orozco , [employer] Primary Care Provider Active Start: August 08, 2024 Gustavo MANZO MD Attending Provider Active Start: August 08, 2024 Team Status: Inactive Member Role/Relationship Status Dates Miryam Orozco , [employer] Primary Care Provider Active Start: August 12, 2024 End: August 12, 2024 Miryam Orozco , [employer]-C Referring Provider Active Start: August 12, 2024 End: August 12, 2024 Dr. Gonzalo Lomax MD Attending Provider Active Start: August 12, 2024 End: August 12, 2024 Team Status: Active Member Role/Relationship Status Dates Miryam Orozco [employer] Primary Care Provider Active Start: August 15, 2024 Dr. Gonzalo Lomax MD Attending Provider Active Start: August 15, 2024 Dr. Gonzalo Lomax MD Referring Provider Active Start: August 15, 2024 Dr. Gonzalo Lomax MD Other Provider Active Star t: August 15, 2024 Team Status: Active Member Role/Relationship Status Dates Miryam Orozco , [employer] Primary Care Provider Active Start: August 16, 2024 Gustavo MANZO MD Attending Provider Active Start: August 16, 2024 Team Status: Active Member Role/Relationship Status Dates Miryam Orozco , [employer] Primary Care Provider Active Start: August 18, 2024 Gustavo MANZO MD Attending Provider Active Start: August 18, 2024 Team Status: Active Member Role/Relationship Status Dates Miryam Orozco , [employer] Primary Care Provider Active Start: August 22, 2024 Gustavo MANZO MD Attending Provider Active Start: August 22, 2024 Gustavo MANZO MD Referring Provider Active Start: August 22, 2024 Team Status: Active Member Role/Relationship Status Dates Miryam Orozco , [employer] Primary Care Provider Active Start: August 22, 2024 Dr. Gonzalo Lomax MD Attending Provider Active Start: August 22, 2024 Dr. Gonzalo Lomax MD Referring Provider Active Start: August 22, 2024 Dr. Gonzalo Lomax MD Other Provider Active Star t: August 22, 2024 Team Status: Inactive Member Role/Relationship Status Dates Miryam Orozco , [employer] Primary Care Provider Active Start: September 01, 2024 End: September 03, 2024 Dr. Gonzalo Lomax MD Attending Provider Active Start: September 01, 2024 End: September 03, 2024 Dr. Gonzalo Lomax MD Referring Provider Active Start: September 01, 2024 End: September 03, 2024 Team Status: Active Member Role/Relationship Status Dates Miryam Orozco , [employer] Primary Care Provider Active Start: September 01, 2024 Dr. Gonzalo Lomax MD Attending Provider Active Start: September 01, 2024 Dr. Gonzalo Lomax MD Referring Provider Active Start: September 01, 2024 Dr. Gonzalo Lomax MD Other Provider Active Star t: September 01, 2024 Team Status: Inactive Member Role/Relationship Status Dates Miryam Jigarhof , [employer] Primary Care Provider Active Start: September 05, 2024 End: September 05, 2024 Miryampoonam Kimballhof , [employer] Referring Provider Active Start: September 05, 2024 End: September 05, 2024 Dr. Mehdi Womack MD Attending Provider Active Start: September 05, 2024 End: September 05, 2024 Team Status: Inactive Member Role/Relationship Status Dates Miryampoonam Kimballhopat , [employer] Primary Care Provider Active Start: September 06, 2024 End: September 06, 2024 Dr. Gonzalo Lomax MD Attending Provider Active Start: September 06, 2024 End: September 06, 2024 Dr. Gonzalo Lomax MD Referring Provider Active Start: September 06, 2024 End: September 06, 2024 Team Status: Active Member Role/Relationship Status Dates Miryampoonam Serraf , [employer] Primary Care Provider Active Start: September 06, 2024 Dr. Gonzalo Lomax MD Attending Provider Active Start: September 06, 2024 Dr. Gonzalo Lomax MD Referring Provider Active Start: September 06, 2024 Dr. Gonzalo Lomax MD Other Provider Active Star t: September 06, 2024 Team Status: Active Member Role/Relationship Status Dates Miryampoonam Kimballhopat , [employer] Primary Care Provider Active Start: September 12, 2024 Dr. Gonzalo Lomax MD Attending Provider Active Start: September 12, 2024 Dr. Gonzalo Lomax MD Referring Provider Active Start: September 12, 2024 Dr. Gonzalo Lomax MD Other Provider Active Star t: September 12, 2024 Team Status: Inactive Member Role/Relationship Status Dates Miryampoonam Kimballhopat , [employer] Primary Care Provider Active Start: September 19, 2024 End: October 03, 2024 Dr. Gonzalo Lomax MD Attending Provider Active Start: September 19, 2024 End: October 03, 2024 Dr. Gonzalo Lomax MD Referring Provider Active Start: September 19, 2024 End: October 03, 2024 Team Status: Active Member Role/Relationship Status Dates Miryam Orozco [employer] Primary Care Provider Active Start: September 20, 2024 Dr. Gonzalo Lomax MD Attending Provider Active Start: September 20, 2024 Dr. Gonzalo Lomax MD Referring Provider Active Start: September 20, 2024 Dr. Gonzalo Lomax MD Other Provider Active Star t: September 20, 2024 Team Status: Inactive Member Role/Relationship Status Dates Miryam Orozco [employer] Primary Care Provider Active Start: September 28, 2024 End: October 04, 2024 Dr. Jhonatan Maxwell DO Emergency Provider Active Start: September 28, 2024 End: October 04, 2024 Dr. Michelle Gallardo MD Admit Provider Active St art: September 28, 2024 End: October 04, 2024 Dr. Michelle Gallardo MD Other Provider Active St art: September 28, 2024 End: October 04, 2024 Dr. Qian Albrecht MD Other Provider Active Start: September 28, 2024 End: October 04, 2024 Dr. Alex Acosta DO Attending Provider Active S tart: September 28, 2024 End: October 04, 2024 Dr. Russell Todd DO Other Provider Active Star t: September 28, 2024 End: October 04, 2024 Team Status: Active Member Role/Relationship Status Dates Miryam Orozco [employer] Primary Care Provider Active Start: September 29, 2024 Dr. Jhonatan Maxwell DO Emergency Provider Active Start: September 29, 2024 Dr. Michelle Gallardo MD Admit Provider Active St art: September 29, 2024 Dr. Michelle Gallardo MD Other Provider Active St art: September 29, 2024 Dr. Qian Albrecht MD Other Provider Active Start: September 29, 2024 Dr. Russell Todd DO Attending Provider Active Start: September 29, 2024 Dr. Russell Todd DO Other Provider Active Star t: September 29, 2024 Team Status: Active Member Role/Relationship Status Dates Miryam Orozco [employer] Primary Care Provider Active Start: September 30, 2024 Dr. Jhonatan Maxwell DO Emergency Provider Active Start: September 30, 2024 Dr. Michelle Gallardo MD Admit Provider Active St art: September 30, 2024 Dr. Michelle Gallardo MD Other Provider Active St art: September 30, 2024 Dr. Qian Albrecht MD Other Provider Active Start: September 30, 2024 Dr. Russell Todd DO Attending Provider Active Start: September 30, 2024 Dr. Russell Todd DO Other Provider Active Star t: September 30, 2024 Team Status: Active Member Role/Relationship Status Dates Miryam Orozco NP-C Primary Care Provider Active Start: October 01, 2024 Dr. Jhonatan Maxwell DO Emergency Provider Active Start: October 01, 2024 Dr. Michelle Gallardo MD Admit Provider Active St art: October 01, 2024 Dr. Michelle Gallardo MD Other Provider Active St art: October 01, 2024 Dr. Qian Albrecht MD Other Provider Active Start: October 01, 2024 Dr. Alex Acosta , Attending Provider Active S tart: October 01, 2024 Dr. Alex Acosta , Other Provider Active Start : October 01, 2024 Dr. Russell Todd , DO Other Provider Active Star t: October 01, 2024 Team Status: Active Member Role/Relationship Status Dates Miryam Orozco NP-C Primary Care Provider Active Start: October 02, 2024 Dr. Jhonatan Maxwell DO Emergency Provider Active Start: October 02, 2024 Dr. Michelle Gallardo MD Admit Provider Active St art: October 02, 2024 Dr. Michelle Gallardo MD Other Provider Active St art: October 02, 2024 Dr. iQan Albrecht MD Other Provider Active Start: October 02, 2024 Dr. Alex Acosta DO Attending Provider Active S tart: October 02, 2024 Dr. Alex Acosta , Other Provider Active Start : October 02, 2024 Dr. Russell Todd DO Other Provider Active Star t: October 02, 2024 Team Status: Active Member Role/Relationship Status Dates Miryam Orozco NP-C Primary Care Provider Active Start: October 03, 2024 Dr. Jhonatan Maxwell DO Emergency Provider Active Start: October 03, 2024 Dr. Michelle Gallardo MD Admit Provider Active St art: October 03, 2024 Dr. Michelle Gallardo MD Other Provider Active St art: October 03, 2024 Dr. Qian Albrecht MD Other Provider Active Start: October 03, 2024 Dr. Alex Acosta DO Attending Provider Active S tart: October 03, 2024 Dr. Alex Acosta , Other Provider Active Start : October 03, 2024 Dr. Russell Todd DO Other Provider Active Star t: October 03, 2024 Team Status: Inactive Member Role/Relationship Status Dates Miryam Orozco [employer] Primary Care Provider Active Start: October 04, 2024 Dr. Chayo Hernandez MD Attending Provider Active Start: October 04, 2024 Team Status: Active Member Role/Relationship Status Dates Miryam Orozco [employer] Primary Care Provider Active Start: October 04, 2024 Dr. Jhonatan Maxwell DO Emergency Provider Active Start: October 04, 2024 Dr. Michelle Gallardo MD Admit Provider Active St art: October 04, 2024 Dr. Michelle Gallardo MD Other Provider Active St art: October 04, 2024 Dr. Qian Albrecht MD Other Provider Active Start: October 04, 2024 Dr. Alex Acosta DO Attending Provider Active S tart: October 04, 2024 Dr. Alex Acosta DO Other Provider Active Start : October 04, 2024 Dr. Russell Todd DO Other Provider Active Star t: October 04, 2024 Team Status: Inactive Member Role/Relationship Status Dates Miryam Orozco [employer] Primary Care Provider Active Start: October 04, 2024 End: October 20, 2024 Dr. Gautam Hardy MD Admit Provider Active Star t: October 04, 2024 End: October 20, 2024 Dr. Gautam Hardy MD Attending Provider Active Start: October 04, 2024 End: October 20, 2024 Dr. Gautam Hardy MD Referring Provider Active Start: October 04, 2024 End: October 20, 2024 Dr. Qian Albrecht MD Other Provider Active Start: October 04, 2024 End: October 20, 2024 Team Status: Active Member Role/Relationship Status Dates Miryam Orozco , [employer] Primary Care Provider Active Start: October 10, 2024 Dr. Gonzalo Lomax MD Attending Provider Active Start: October 10, 2024 Dr. Gonzalo Lomax MD Referring Provider Active Start: October 10, 2024 Dr. Gonzalo Lomax MD Other Provider Active Star t: October 10, 2024 Team Status: Inactive Member Role/Relationship Status Dates Miryampoonam Kimballhopat , [employer] Primary Care Provider Active Start: October 11, 2024 End: October 11, 2024 Dr. Gautam Hardy MD Attending Provider Active Start: October 11, 2024 End: October 11, 2024 Dr. Gautam Hardy MD Referring Provider Active Start: October 11, 2024 End: October 11, 2024 Team Status: Active Member Role/Relationship Status Dates Miryampoonam Kimballhof , [employer] Primary Care Provider Active Start: October 11, 2024 Dr. Russell Gonzalez MD Attending Provider Active S tart: October 11, 2024 Team Status: Inactive Member Role/Relationship Status Dates Miryampoonam Kimballhof , [employer] Primary Care Provider Active Start: October 12, 2024 End: October 12, 2024 Dr. Alexis Friend MD Attending Provider Active Sta rt: October 12, 2024 End: October 12, 2024 Dr. Alexis Friend MD Emergency Provider Active Sta rt: October 12, 2024 End: October 12, 2024 Team Status: Inactive Member Role/Relationship Status Dates Miryamoponam Kimballhof , [employer] Primary Care Provider Active Start: October 14, 2024 End: October 14, 2024 Miryam Orozco , [employer] Referring Provider Active Start: October 14, 2024 End: October 14, 2024 Dr. William Cruz DO Attending Provider Active Start: October 14, 2024 End: October 14, 2024 Team Status: Active Member Role/Relationship Status Dates Miryampoonam Orozco , [employer] Primary Care Provider Active Start: October 14, 2024 Miryam Orozco , [employer] Referring Provider Active Start: October 14, 2024 Dr. William Cruz DO Attending Provider Active Start: October 14, 2024 Dr. William Cruz DO Other Provider Active St art: October 14, 2024 Team Status: Active Member Role/Relationship Status Dates Miryam Orozco [employer] Primary Care Provider Active Start: October 24, 2024 Dr. Gonzalo Lomax MD Attending Provider Active Start: October 24, 2024 Dr. Gonzalo Lomax MD Referring Provider Active Start: October 24, 2024 Team Status: Active Member Role/Relationship Status Dates Miryam Orozco [employer] Primary Care Provider Active Start: October 25, 2024 Dr. Gonzalo Lomax MD Attending Provider Active Start: October 25, 2024 Dr. Gonzalo Lomax MD Referring Provider Active Start: October 25, 2024 Dr. Gonzalo Lomax MD Other Provider Active Star t: October 25, 2024 Team Status: Inactive Member Role/Relationship Status Dates Miryam Orozco [employer] Primary Care Provider Active Start: October 25, 2024 End: October 25, 2024 Miryam Orozco [employer] Referring Provider Active Start: October 25, 2024 End: October 25, 2024 Dr. Norberto Jackson MD Attending Provider Active S tart: October 25, 2024 End: October 25, 2024 Team Status: Inactive Member Role/Relationship Status Dates Dr. Jc Mireles DO Emergency Provider Activ e Start: October 26, 2024 End: October 26, 2024 Dr. 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 03/22/24 Goals (unrecognized section and content) Goals may [...] Delgado MD - Comment: MBB L4-5, 5-S1 bilateral) iohexol IV injection (OMNIPAQUE [...] Provid er: Roque Delgado MD - Comment: ROSENDO Bilateral L4-5; L5-S1) lidocaine 20 mg/mL (2 %) injection (XYLOCAINE) (CANCELED) X (OR/PROCEDURE) PRN, Starting on Thu01/08/22 at 1123, Until Thu01/08/22 at 1137, Intraprocedure 1123 (Given - Provid er: Roque Delgado MD - Comment: ROSENDO Bilateral L4-5; L5-S1) Scheduled Medication Order 05/16/2024 05/17/2024 05/18/2024 apixaban (ELIQUIS) tablet 10 mg (COMPLETED) 10 mg, Per NG tube, EVERY 12 HOURS, 12 doses, First dose (after last modification) on Thu05/11/24 at 1100, Last dose on Thu05/16/24 at 2100, Due to the rapid onset of action of apixaban, no overlap is needed with other anticoagulants (e.g. enoxaparin, heparin)., Indications: Venous Thromboembolism 0829 (Given - Provider: Ebony Fuentes RN)2038 (Given [...] Venous Thromboembolism 2243 (Given - Provider: Linda Kennedy RN) 08 (Given - Provider: Steffany Mishra, RN) Atorvastatin (LIPITOR) tablet 40 mg 40 [...] RN)2038 (Given - Provider: Linda Kennedy RN) 08 (Given - Provider: Ebony Fuentes RN)2209 (Not Given - Provider: Linda Kennedy RN - Reason: Other - Comment: NG not in place) carveDILOL (COREG) tablet 6.25 mg 6.25 mg, Oral, EVERY 12 HOURS, First dose (after last modification) on Thu05/17/24 at 2215, Until Discontinued 2234 (Given - Provider: Linda Kennedy RN) 800 (Given - Provider: Steffany Mishra, RN) furOSEmide (LASIX) injection 20 mg (CANCELED) 20 mg, Intravenous, DAILY, First dose (after last reorder) on Thu05/15/24 at 0915, Until Discontinued, Administer by slow IV push at a rate not exceeding 40mg/min 828 (Given - Provider: Ebony Fuentes RN) 08 (Given - Provider: Ebony Fuentes RN) furOSEmide (LASIX) tablet 40 mg 40 mg, Oral, DAILY, First dose (after last modification) on Thu05/18/24 at 0900, Until Discontinued 800 (Given - Provider: Steffany Mishra, KEVIN) Lacosamide (VIMPAT) injection 100 mg (CANCELED) 100 [...] Until Discontinued 1235 (Given - Provider: Steffany Mishra RN) Levothyroxine (SYNTHROID) tablet 125 mcg (CANCELED) 125 mcg, Per NG tube, DAILY BEFORE BREAKFAST, First dose (after last modification) on Thu05/12/24 at 0600, Until Discontinued 0645 (Given - Provider: Lizett Mckeon RN) 0527 (Given - Provider: Linda Kennedy RN) Levothyroxine (SYNTHROID) tablet 125 mcg 125 mcg, Oral, DAILY BEFORE BREAKFAST, First dose (after last modification) on Thu05/18/24 at 0600, Until Discontinued 0538 (Given - Provider: Linda Kennedy RN) ProSource TF 1 Package (CANCELED) 1 [...] Vance RN) 0844 (Given - Provider: Ebony Fuentes RN)1834 (Not Given - Provider: Ebony Fuentes RN [...] administration. 0802 (Not Given - Provider: Steffany Mishra RN - Reason: Order Parameters not met)1501 (Not Given - Provider: Steffany Mishra RN - Reason: Order Parameters not met) vitamin B complex/vitamin C/folic acid (NEPHRONEX) oral liquid 5 mL (CANCELED) 5 mL, Per NG tube, DAILY, First dose on Thu05/06/24 at 0900, Until Discontinued 0830 (Given - Provider: Ebony Fuentes RN) 0842 (Given - Provider: Ebony Fuentes RN) vitamin C/B complex/folic acid (VIRT-CAPS) capsule 1 mg 1 mg (1 capsule), Oral, DAILY, First dose on Thu05/18/24 at 0900, Until Discontinued 0801 (Given - Provider: Steffany Mishra, KEVIN) Water liquid (free water) 100 mL 100 mL, Per NG tube, EVERY 4 HOURS, First dose (after last modification) on Thu05/14/24 at 1000, Until Discontinued, For tube patency. 0156 (Given - Provider: Lizett Mckeon RN - Comment: per pump)0547 (Given - Provider: Lizett Mckeon RN - Comment: per pump)1004 (Given - Provider: Ebony Fuentes RN)1325 (Given - Provider: Ebony Fuentes RN)1742 (Given - Provider: Ginger Vance RN)2133 (Given - Provider: Lnida Kennedy RN) 0050 (Given - Provider: Linda [...] Kennedy RN)0842 (Rate/Dose Verify - Provider: Ebony Fuentes, RN)1719 (New Feeding/Supplement - Provider: Ebony Fuentes RN)1720 (Stopped - Provider: Ebony Fuentes RN - Comment: NG clogged, unable to [...] Oral, EVERY 6 HOURS NEEDED, Starting on Thu05/07/24 at 0734, Until Thu05/18/24 at 1837, Cough hydrALAZINE (APRESOLINE) injection 5 mg 5 mg, Intravenous, EVERY 4 HOURS NEEDED, Starting on Thu05/10/24 at 0638, Until Thu05/18/24 at 183, SBP > 160 mmHg Ipratropium-albuterol (DUONEB) 0.5-2.5 (3) MG/3ML nebulizer solution 3 mL 3 mL, Nebulization, EVERY 6 HOURS NEEDED, Starting on Thu05/04/24 at 2057, Until Thu05/18/24 at 183, Shortness of Breath, Cough, Breathing Treatment, Respiratory Distress, Wheezing Phenol (CHLORASEPTIC) 1.4 % oral spray 2 spray 2 spray, Mouth/Throat, NEEDED, Starting on Thu05/11/24 at 1132, Until Thu05/18/24 at 183, Sore Throat, Patient may self-administer. Senna (SENOKOT) tablet 8.6 mg 8.6 mg, Per NG tube, EVERY 12 HOURS NEEDED, Starting on Thu05/07/24 at 0730, Until Thu05/18/24 at 183, Constipation 1st Line Linked Groups Order Group [...] dose, On Thu05/18/23 at 1330 Given by [facility] 05/18/2023 1:26 PM EST 100 mg lidocaine (PF) 20 mg/mL (2 %) 200 mg injection (XYLOCAINE) 200 mg, OTHER, ONCE, 1 dose, On Thu05/18/23 at 1330 Given by [facility] 05/18/2023 1:26 PM EST 200 mg methylPREDNISolone acetate 40 mg injection (DEPO-Medrol) 40 mg, OTHER, ONCE, 1 dose, On Thu05/18/23 at 1330 Given by [facility] 05/18/2023 1:26 PM EST 40 mg Inactive Administered Medications - up to 3 most recent administrations Medication Order MAR Action Action Date Dose Rate Site 0.9% NaCl 10 mL flush 10 mL, OTHER, ONCE, 1 dose, On Thu07/15/23 at 0900 Given by [facility] 07/15/2023 9:10 AM EDT 10 mL bupivacaine(PF) 0.75 % (7.5 mg/mL) 7.5 mg injection (MARCAINE PF) 7.5 mg, OTHER, ONCE, 1 dose, On Thu07/15/23 at 0900 Given by [facility] 07/15/2023 9:10 AM EDT 7.5 mg lidocaine (PF) 20 mg/mL (2 %) 200 mg injection (XYLOCAINE) 200 mg, OTHER, ONCE, 1 dose, On Thu07/15/23 at 0900 Given by [facility] 07/15/2023 9:10 AM EDT 200 mg methylPREDNISolone acetate 40 mg injection (DEPO-Medrol) 40 mg, OTHER, ONCE, 1 dose, On Thu07/15/23 at 0900 Given by [facility] 07/15/2023 9:10 AM EDT 40 mg INFORMATION SOURCE (unrecogn ized section and content) DATE CREATED AUTHOR 12/19/2023 [facility] DATE CREATED AUTHOR AUTHOR'S ORGANIZ ATION 05/11/2024 [facility] [employer] [facility] DATE CREATED AUTHOR AUTHOR'S ORGANIZ ATION 05/22/2024 [facility] DATE CREATED AUTHOR AUTHOR'S ORGANIZ ATION 10/27/2024 [facility] DATE CREATED AUTHOR AUTHOR'S ORGANIZ ATION 10/28/2024 [facility] FOR RECORDS PERTAINING TO PATIENTS WHO [...] BE BASED ON THE PRIMARY CLINICAL RECORDS. [facility] [employer] [facility]. provides no warranty or guarantee of the accuracy or completeness of information in this document.
[2024-10-29 04:20] LABS: Hematocrit 31.4 % (37-47); Hemoglobin 9.4 g/dL (12.0-15.0); Immature Granulocytes Count 0.010 X10^3/uL (0.0-0.0); Mean Corp Hgb Conc 29.9 g/dL (32-36); Mean Corpuscular Volume 106.8 fL (81-99); Mean Platelet Vol. 13.6 fl (6.2-12.0); NRBC Flagged by Analyzer 0 % (0-5); Platelet Count 212 K/mm3 (150-450); RBC Distribution Width CV 15.0 % (11.6-14.6); RBC Distribution Width SD 57.2 fl (35.1-43.9); Red Blood Count 2.94 M/mm3 (4.2-5.4); White Blood Count 5.8 K/mm3 (4.4-11.0)
--- NOTE | 2024-10-29 04:20 | RAD_ITS ---
PROCEDURE: CHEST 1 VIEW (PORTABLE) 10/29/2024 REASON FOR EXAM: WEAKNESS TECHNIQUE: Frontal view of the chest. COMPARISON: 05/02/2024 FINDINGS: Lordotic positioning. Cardiac enlargement, some of which is likely projectional and secondary to AP technique. Replaced left shoulder joint. Limited retrocardiac visibility. No definite consolidation, effusion or pneumothorax. There is a mild central interstitial prominence which may be chronic and/or secondary to very mild edema. RAD/Chest 1 View (Portable) IMPRESSION: No definite acute chest findings. Possible very mild central interstitial mandeep lauren Advise correlation. Reading Location: [place] [id number]
[2024-10-29 04:25] LABS: Mucous, Urine 0 SEEN /hpf (<or=2+); Red Blood Cells-Urine 0 SEEN /hpf (0-5)
[2024-10-29 04:27] LABS: Color, Urine Straw (Yellow); Glucose, Dipstick Normal (Normal); Ketone-Dipstick Negative (Negative); Leukocyte Esterase-Dipstick 25 /ul (Negative); Nitrite-Dipstick Negative (Negative); Occult Blood-Urine Negative /ul (Negative); Protein-Dipstick 15 mg/dl (Negative); Specific Gravity, Urine 1.010 (1.002-1.030); Urine Bilirubin Dipstick Negative (Negative)
[2024-10-29 04:40] LABS: Squamous Epithelial Cells - UA 0-5 SEEN /hpf (5-10)
[2024-10-29 04:48] LABS: Anion Gap 13 (5-15); BUN 67 mg/dL (4-19); BUN/Creat Ratio 21.3 RATIO (10-20); Calcium,Total 8.3 mg/dL (7.6-11.0); Carbon Dioxide 23.5 mmol/L (21.0-32.0); Chloride 106 mmol/L (98-108); Estimated Creatinine Clearance 15.60 ml/min (50-250); Glucose 98 mg/dL (70-99); Magnesium 2.3 mg/dL (1.5-2.2); Potassium 4.4 mmol/L (3.3-5.1)
--- NOTE | 2024-10-29 05:45 | PCM.HP.STD ---
[facility] - General General Date of Service: 10/29/24 Chief Complaint: Weakness [facility] Narrative MARI LOPEZ, is a 84 F who presents with weakness. Patient was admitted earlier this month discharged to transitional care unit where she was and was able to walk out on her own accord. Had been doing well but has progressively gotten weaker at home and over the past 2 days was essentially bedbound. Patient was reluctant but finally agreed to going to a nursing home facility and they were attempting to do so from home but with her being bedridden for 2 days was not feasible so patient was sent to the emergency room. In the emergency room, patient's creatinine was noted to be 3.16 chest x-ray was concerning for pulmonary vascular congestion. Heart rate did get up and she did receive a dose of her carvedilol. Patient has lower extremity wounds that have opened up and noted that her legs are seeping fluid. She states that her weight has gone up roughly 10 pounds. She says that she has not had a bowel movement in 6 days. [facility] Medical History VRE (vancomycin resistant enterococcus) culture positive Hypothyroidism Lymphedema Insomnia Obstructive sleep apnea Macrocytic anemia PAF (paroxysmal atrial fibrillation) Wears glasses Post-menopausal Open wound Arthritis Walker as ambulation aid Bladder disease History of renal disease Anemia DVT (deep venous thrombosis) Low iron High cholesterol Back pain Seizures Hoarseness Non-smoker CPAP (continuous positive airway pressure) dependence Leg cramps History of edema History of echocardiogram History of stress test Cardiology follow-up encounter Urinary incontinence Osteopenia Spinal osteophytosis Status epilepticus Complicated urinary tract infection Osteoporosis Osteoarthritis Venous insufficiency of both lower extremities Pulmonary hypertension Diastolic dysfunction Elevated parathyroid hormone Metabolic acidosis Preop cardiovascular exam H/O hemorrhoids (HFpEF) heart failure with preserved ejection fraction History of pulmonary embolus (PE) COVID-19 (01/19/21) MRSA (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 07/25/21 Unknown History nitroglycerin 0.4 mg sublingual 0.4 mg sublingual Q5M PRN chest 06/27/22 Unknown Rx tablet pain #30 tabs atorvastatin 40 mg tablet 40 mg PO QHS cholesterol 05/18/24 10/03/24 History levothyroxine 125 mcg tablet 125 mcg PO DAILY thyroid 05/18/24 10/04/24 History calcium acetate(phosphat bind) 667 667 mg PO TIDCM supplement #1 cap 06/09/24 10/04/24 Rx mg capsule sennosides 8.6 mg-docusate sodium 2 tab PO BID constipation #1 TAB 06/09/24 Unknown Rx 50 mg tablet (Stimulant Laxative Plus) carvedilol 6.25 mg tablet 6.25 mg PO BID Blood pressure 09/28/24 10/14/24 07:45 History multivitamin 1 tab PO DAILY Supplement 09/28/24 09/28/24 History Arthritis Pain Compound 3 click topical BID 30 days #60 GMS 10/17/24 Unknown Rx acetaminophen 500 mg tablet 1,000 mg (2 x 500 mg) PO TID #0 10/17/24 Unknown Rx tabs ferrous sulfate 325 mg (65 mg 325 mg PO DAILY@1200 30 days #30 10/17/24 Unknown Rx iron) tablet (FeroSul) tabs furosemide 40 mg tablet 40 mg PO DAILY #0 tabs 10/17/24 Unknown Rx lidocaine 5 % topical patch 1 patch topical DAILY 30 days #30 10/17/24 Unknown Rx ea melatonin 3 mg tablet 3 mg PO QHS #0 tabs 10/17/24 Unknown Rx mirtazapine 15 mg tablet 7.5 mg (1/2 x 15 mg) PO 2200 30 10/17/24 Unknown Rx days #15 tabs oxycodone 5 mg tablet 5 mg PO Q4H PRN PRN Pain Score 10/17/24 Unknown Rx 1-10 Or Pre Pt/Ot 7 days #42 tabs sodium bicarbonate 650 mg tablet 650 mg PO 4X/DAY 30 days #120 tabs 10/17/24 Unknown Rx apixaban 2.5 mg tablet (Eliquis) 2.5 mg PO BID 30 days #60 tabs 10/18/24 Unknown Rx cholecalciferol (vitamin D3) 25 50 mcg PO DAILY 10/26/24 Unknown History mcg (1,000 unit) tablet doxycycline hyclate 100 mg capsule 100 mg PO BID 5 days #10 caps 10/26/24 Unknown Rx fluoride (sodium) 1.1 % dental 1 applic PO Q24H 10/26/24 Unknown History cream (Denta 5000 Plus) gabapentin 300 mg capsule 300 mg PO TID 10/26/24 Unknown History lacosamide 100 mg tablet 100 mg PO Q12H 10/26/24 Unknown History nystatin 100,000 unit/gram topical topical 10/26/24 Unknown History powder (Klayesta) vibegron 75 mg tablet (Gemtesa) 75 mg PO DAILY 10/26/24 Unknown History polyethylene glycol 3350 17 17 g PO DAILY 10/29/24 Unknown History gram/dose oral powder (Miralax) Allergy/AdvReac Type Severity Reaction Status Date / Time cefazolin (From Kefzol) Allergy Severe hives/difficulty Verified 10/29/24 03:39 swallowing ibuprofen Allergy Unknown Rash Verified 10/29/24 03:39 peanut Allergy Anaphylaxis Verified 10/29/24 03:39 Sulfa (Sulfonamide Allergy Unknown Verified 10/29/24 03:39 Antibiotics) sulfamethoxazole (From Allergy Other Verified 10/29/24 03:39 Bactrim) trimethoprim (From Bactrim) Allergy Other Verified 10/29/24 03:39 Family History Mother Cancer uterine Father No problems noted. Surgical History History of esophagogastroduodenoscopy (EGD) Hx of colonoscopy Hx of left cataract extraction History of dental surgery History of open reduction and internal fixation (ORIF) procedure History of cardiac catheterization Hx laparoscopic cholecystectomy H/O shoulder replacement History of left heart catheterization (08/01/22) History of dilatation and curettage History of hysteroscopy History of bilateral knee replacement History of herniorrhaphy Status post debridement History of open reduction and internal fixation (ORIF) procedure H/O hemorrhoidectomy History of gastric bypass Social History household members: other details: She has a roomate housing: house number of children: 1 current occupational status: retired pets and animals: Yes pets and animals: dog(s) Smoking Status: Never smoker alcohol intake: never substance use type: does not use caffeine: Yes Type: coffee Number of servings: 3 ROS ROS Narrative Has been having tremulousness again. All review of systems were negative except as mentioned above in the history of present illness and the other review of systems. Vital Signs Vital Signs Vital Signs: 10/29/24 03:40 10/29/24 03:40 10/29/24 05:09 Temperature 36.4 C L 36.6 C Temperature Source Oral Pulse Rate 124 H 108 H Respiratory Rate 18 18 Respiratory Effort Normal Non-Labored Respiratory Pattern Normal Blood Pressure 102/86 H 98/82 H Blood Pressure Mean 91 87 Pulse Ox 100 96 Oxygen Delivery Method Room Air 10/29/24 05:11 Temperature Temperature Source Pulse Rate 108 H Respiratory Rate 18 Respiratory Effort Respiratory Pattern Blood Pressure 98/82 H Blood Pressure Mean 87 Pulse Ox 96 Oxygen Delivery Method Room Air Weight Weight: 104.8 kg Body Mass Index (BMI) 42.3 Physical Exam Narrative POCUS: Indication is for heart failure. Limited no phased-array probe on and also limited due to body habitus and respirations. IVC was visualized did not appear overly enlarged and did not appear to be collapsible with respiration so once again was limited. Const alert and no apparent distress Constitutional Narrative: On room air. No respiratory distress. No conversational dyspnea. Patient has very good recollection of the events out of curried over the past several months. She does recall be seeing her during her hospitalization from September to October. General Appearance: cooperative HEENT normocephalic Eyes Eyes Narrative: No icterus Neck no lymphadenopathy Neck Narrative: No thyromegaly Resp normal respiratory effort and no retractions Cardio S1 normal heart sound and S2 normal heart sound Cardio Narrative: Tachycardic GI GI Narrative: Obese. Soft. Nondistended nontender. No hepatosplenomegaly Extremity Extremity Narrative: Bilateral tight lower extremity edema. With some diffuse serous drainage. Skin Skin Narrative: Opened up lesion on right medial calf. No surrounding erythema. Anterior stitch. Skin graft site on right anterior thigh appears grossly normal. Of any cellulitis. Left lateral calf patient has a lesion that is healed without any surrounding erythema. Neuro moves all extremities Sensorium / Orientation: awake and alert Psych affect normal Results Lab / Micro Data Attestation: I reviewed the patient's lab results. 10/29/24 03:51 10/29/24 03:51 Labs: Laboratory Results - last 24 hr 10/29/24 03:51: WBC 5.8, RBC 2.94 L, Hgb 9.4 L, Hct 31.4 L, MCV 106.8 H, MCH 32.0, MCHC 29.9 L, RDW Std Deviation 57.2 H, RDW Coeff of Parris 15.0 H, Plt Count 212, MPV 13.6 H, Immature Gran % (Auto) 0.200, Neut % (Auto) 53.2, Lymph % (Auto) 30.1, [place] % (Auto) 9.8, Eos % (Auto) 6.0 H, Baso % (Auto) 0.7, Absolute Neuts (auto) 3.1, Absolute Lymphs (auto) 1.74, Nucleated RBC % 0, Sodium 142, Potassium 4.4, Chloride 106, Carbon Dioxide 23.5, Anion Gap 13, BUN 67 H, Creatinine 3.16 H, Estim Creat Clear Calc 15.60 L, Est GFR (MDRD) Non-Af 14 L, BUN/Creatinine Ratio 21.3 H, Glucose 98, Calcium 8.3, Magnesium 2.3 H, TSH 4.310 H 10/29/24 04:14: Urine Color Straw, Urine Clarity Clear, Urine pH 6.0, Ur Specific [place] 1.010, Urine Protein 15 H, Urine Glucose (UA) Normal, Urine Ketones Negative, Urine Occult Blood Negative, Urine Nitrite Negative, Urine Bilirubin Negative, Urine Urobilinogen Normal, Ur Leukocyte Esterase 25 H, Urine RBC 0 SEEN, Urine WBC 5-10 SEEN, Ur Squamous Epith Cells 0-5 SEEN, Urine Bacteria 0 SEEN, Urine Mucus 0 SEEN Imaging Radiology Impression Chest X-Ray 10/29/24 04:20 IMPRESSION: No definite acute chest findings. Possible very mild central interstitial edema. Advise correlation. [facility] & Plan Assessment/Plan (1) (HFpEF) heart failure with preserved ejection fraction: PLAN: Chest x-ray reviewed and shows some pulmonary vascular congestion as well as patient does have marked swelling with serous drainage in her lower extremities. Patient has been taking Lasix at home but has still put on 10 pounds (though the weight here shows that her weight is down roughly 19 kg since October 26--I think this is innaccurate as losing 20 kg seems highly doubtful). Will start IV furosemide. Fluid restrict. Patient had echocardiogram from May 2024 where she had an EF of 55% (2) Open leg wound: PLAN: Complicated by her lower extremity edema No evidence of any cellulitis at this time Consult wound care for routine wound management. Follow-up with Dr. Lomax as outpt. (3) Debility: PLAN: Patient was already in the works of going to [facility] from home. Will have PT OT evaluate and treat. Case management to assist on disposition. (4) Tremulousness: PLAN: Very subtle currently compared to how much she was having last time. It is all that is due to the gabapentin that she is taking. She was on 300 3-times a day decreased to 100 3 times daily she was discharged and discontinue it altogether and monitor. I am concerned that not clearing appropriately given her CKD, despite the reduced dose. PLAN: Plan Chronic medical conditions CKD 4: Creatinine has been variable over the past month. Hopefully with diuresis that will help with perfusion of her kidneys. Obesity class III: Complicates care and recovery Paroxysmal atrial fibrillation: Continue carvedilol and apixaban Hypothyroidism: Continue levothyroxine. TSH 4.31. Check free T4. VTE prophylaxis: Not indicated as patient is already anticoagulated Charges/Coding Visit Charges Inpatient E&M: 32796 Init Hosp L3
--- OUTSIDE RECORDS SUMMARY | 2024-10-29 06:08 | XMS RPT_ITS | CCD ---
Author Organization [facility] CliniSyva Care Team Providers Care Collar Closer Lockstitch Name Role Phone Lizy Capone MD Primary [...] Provider [phone], Dr. Thornton Other Provider [facility] ORTHODONTIC BAND MAKER, ORTHODONTIC BAND MAKER-C Jas Dickey Attending Provider Geovani ORTHODONTIC BAND MAKER, ORTHODONTIC BAND MAKER-C Maria Teresa Attending Provider Dr. Judson Toney Emergency Provider Ponce, ORTHODONTIC BAND MAKER-C Miryam Primary Care Provider Dr. Ralph Wheeler [...] Unavailab LIZY Dia Primary Care Unavailable Tannhof NAILER OPERATOR.Miryam CORONA Unavailable Yeison NAILER OPERATOR.CJMulugeta Unavailable PROVIDER, UNKNOWN Attending Unavailable PROVIDER, UNKNOWN Admitting Unavailable [place] LIFE SCIENCES INSTRUCTOR, Miryam Primary Care Provider Norberto Jackson MD Unavailable NICOL JUDGE Attending Unavailable ADITHYA HARRELL Referring Unavailable MIRYAM OROZCO Primary Care Unavailable CONSULT, NEUROLOGY Consulting Unavailable KINDRA GANNON Admitting Unavailable [place] ORTHODONTIC BAND MAKER-C, Miryam Primary Care Provider Janine GUILLEN, Dr. [...] Provider Jimena JACK, Dr. Mann Other Provider [phone] Joni JACK, Dr. Langley Other Provider [phone] Damion JACK, Dr. Lion Other Provider Hector JACK, Dr. Sanderson Other Provider Dr. Anthony Anderson MD Other Provider Griselda JACK, Dr. Feng Other Provider Fabián JACK, Dr. Peterson Other [facility] chela Salcedo MD, Dr. Mcgovern Other Provider Gagan JACK, Dr. Singleton Other Provider [phone] Esthela JACK, Dr. Leija Other Provider Neda GUILLEN, Dr. Gaming Other Provider Millie JACK, Dr. Miller Other Provider [phone] Dez JACK, Dr. Contreras Other Provider Dr. Bandar Hernandez DO Other Provider Robinson JACK, Dr. Mcpherson Other Provider Alvaro JACK, Dr. Nixon Other Provider Julio Cesar JACK, Dr. Haji Attending Provider Ivy JACK, Dr. Rosas Other Provider Unavailable Ken JACK, Dr. Carrillo Other Provider [phone] Dr. Naina Bello MD Other Provider Michael Johnston MD Other Provider Lucero YATES, Mulugeta Other Provider Stepan JACK, Dr. Rolon Other Provider Noel JACK, Jae Other Provider [phone] TAYA MENCHACA MD Other Provider Adriana [...] Castorena MD Attending Provider Unavaila ble Cherelle ORTHODONTIC BAND MAKER-C, Minna Attending Provider Kell JACK, Dr. Chen Attending Provider Gustavo Castorena MD Referring Provider Unavaila briseida Vieyra, Dr. Reaves Emergency Provider [facility] ORTHODONTIC BAND MAKER-C, Miryam Primary Care Provider Janine GUILLEN, Dr. Mari Cochran Attending Provide r Ken JACK, Dr. Carrillo Other Provider [phone] Valentin GUILLEN, Dr. Reaves Attending Provider [facility] ORTHODONTIC BAND MAKER-C, [place] Referring Provider Dr. Gonzalo Lomax MD Attending [...] Gallardo MD Other Provider Ambrocio JACK, Dr. Laughlin Other Provider Dave GUILLEN, Dr. Pak Attending Provider Perez GUILLEN, Dr. Wells Other Provider Perez GUILLEN, Dr. Wells Attending Provider Dave GUILLEN, Dr. Pak Other Provider Tannhof ORTHODONTIC BAND MAKER-C, [facility] Care Provider Kell JACK, Gustavo Attending Provider Unavailraiza Villarreal ORTHODONTIC BAND MAKER-C, Minna Attending Provider Antony JACK, Dr. Gautam Escalona Admit Provider Antony JACK, Dr. Gautam Escalona Attending Provider [phone] Antony JACK, Dr. Gautam Escalona Referring Provider Lisa JACK, Dr. Wells Attending Provider Phuc JACK, Dr. Espinoza Emergency Provider Tannhof ORTHODONTIC BAND MAKER-C, [facility] Care Provider Vishal GUILLEN, Dr. Thomas Attending Provider Vishal GUILLEN, Dr. Thomas Other Provider Tannhof ORTHODONTIC BAND MAKER-C, [place] Primary Care Provider Kell JACK, Gustavo Attending Provider Kailee Friend MD, Dr. Espinoza Attending Provider Tannhof ORTHODONTIC BAND MAKER-C, [facility] Care Provider Cherelle ORTHODONTIC BAND MAKER-C, Minna Attending Provider Mary JACK, Dr. Domingo Attending Provider Manuel JACK, Dr. Thornton Attending Provider Tannhof ORTHODONTIC BAND MAKER-C, [place] Primary Care Provider Kell JACK, Gustavo Attending Provider Kailee Hernandez MD, Dr. Domingo Attending Provider Aline GUILLEN, Dr. Greene Emergency Provider Estelita JACK, Dr. Zhu Primary Care Provider [phone] [facility], [place] Primary Care Unavailable Gautam Hardy Chi Attending Unavailable Gautam Hardy Chi Referring Unavailable [facility] Care Unavailable Jean Paul Ha Attending Unavailable Estelita, Lizy Primary Care Unavailable Jc Mireles Attending Unavailabl e SiskaGonzalo Attending Unavailable Monie Gonzalo Referring Unavailable [facility] Unavailable Sementi, Mari Cochran Admitting Unavaila ble Sementi, Mari Cochran Attending Unavaila ble [facility] Care Unavailable Sementi, Mari Cochran Consulting Unavaila ble Russell Gonzalez Attending Unavailable [facility] Care Unavailable Nagajothi, Nagapradee Referring Unavailabl e Nagajothi, Nagapradee Attending Unavailabl e [facility] Care Unavailable [facility] Care Unavailable Sementi, Mari Cochran Admitting Unavaila ble Sementi, Mari Cochran Attending Unavaila ble Sementi, Mari Cochran Referring Unavaila ble Sementi, Mari Cochran Consulting Unavaila ble [facility] Care Unavailable [facility] Referring Unavailable Ra Vishalhsaan Attending Unavailable [facility] Care Unavailable Adithya Harrell Attending Unavailable Qian [...] L Admitting Unavailable Ambrocio, Jayaprakas Consulting Unavailable Alxe Acosta Attending Unavailable [facility] Primary Care Unavailable White, Michelle L Consulting Unavailable Russell Todd Consulting Unavailable Gerardo Rogers Consulting Unavailable Mari Mehta Admitting Unavaila ble Sementi, Mari Cochran Attending Unavaila ble Tannho, [place] Primary Care Unavailable Oleghe OLS, Efewongbe Referring Unavailabl e Tannhof, [place] Primary Care Unavailable Oleghe OLS, Efewongbe Attending Unavailabl e Tannho, [place] Primary Care Unavailable Antony, Gautam Chi Admitting Unavailable Ambrocio, Jayaprakas Consulting Unavailable Antony, Gautam Chi Attending Unavailable Antony, Gautam Chi Referring Unavailable [facility] Primary Care Unavailable Mari Mehta Attending Unavaila ble Oleghe OLS, Efewongbe Referring Unavailabl e Oleghe OLS, Efewongbe Attending Unavailabl e Tannhof, [place] Primary Care Unavailable Siska, Gonzalo Referring Unavailable Siska Gonzalo Attending Unavailable Tannho, [place] Primary Care Unavailable Siska, Gonzalo Attending Unavailable Siska, Gonzalo Referring Unavailable [facility] Primary Care Unavailable Sisgumaro, Gonzalo Consulting Unavailable [facility], [place] Primary Care Unavailable Tannho, Miryam Referring Unavailable Mehdi Womack Attending Unavailable Oleghe OLS, Efewongbe Attending Unavailabl e Oleghe OLS, Efewongbe Referring Unavailabl e Tannho, [place] Primary Care Unavailable Alexis Friend Attending Unavailable [facility], [place] Primary Care Unavailable [facility], [place] Primary Care Unavailable [facility], [facility]iryam Attending Unavailable Tannhof, Miryam Referring Unavailable Ambrocio, Jayaprakas Attending Unavailable Ambrocio, Jayaprakas Referring Unavailable [facility], [place] Primary Care Unavailable [facility], [place] Primary Care Unavailable Oleghe OLS, Efewongbe Attending Unavailabl e Oleghe OLS, Efewongbe Attending Unavailabl e Tannhof, [place] Primary Care Unavailable [facility], [place] Primary Care Unavailable SemenMari syed Admitting Unavaila ble Sementi, Mari Cochran Attending Unavaila ble Sementi, Mandy [facility] Russell Gonzalez Attending Unavailable Sementi, Mandy Referring Unavaila ble ManuelNorberto hunt Attending Unavailable [facility] Primary Care Unavailable [facility], [place] Referring Unavailable [facility] Primary Care Unavailable Gonzalo Lomax Attending Unavailable [facility], Miryam Referring Unavailable [place] ORTHODONTIC BAND MAKER, Minna Attending Unavailable [facility] Primary Care Unavailable [facility] Primary Care Unavailable ManuelNorberto hunt Attending Unavailable [facility] Referring Unavailable [facility] Primary Care Unavailable [place] ORTHODONTIC BAND MAKER, Minna Attending Unavailable [facility] Care Unavailable Gustavo Castorena Attending Unavailable [place] ORTHODONTIC BAND MAKER, Minna Attending Unavailable [facility] Care Unavailable Adestanford, Amir Consulting Unavailable Gonzalo Lomax Referring Unavailable Gonzalo Lomax Attending Unavailable [facility] Care Unavailable Qian Albrecht Consulting Unavailable Bernarda Becerril Admitting Unavailable Bernarda Becerril Referring Unavailable Edgar Davies Attending Unavailable [facility] Care Unavailable Devon Koenig Consulting Unavailable Sunday [...] Oleghe OLS, Efewongbe Attending Unavailabl e Tannho, [place] Primary Care Unavailable Oleghe OLS, Efewongbe Attending Unavailabl e Tannho, [place] Primary Care Unavailable [facility], [place] Primary Care Unavailable Oleghe OLS, Efewongbe Attending Unavailabl e Tannho, [place] Primary Care Unavailable Oleghe OLS, Efewongbe Attending Unavailabl e Tannho, [place] Primary Care Unavailable Siska, Gonzalo Attending Unavailable Siska, Gonzalo Referring Unavailable Oleghe OLS, Efewongbe Attending Unavailabl e Tannho, [place] Primary Care Unavailable Oleghe OLS, Efewongbe Attending Unavailabl e Tannho, [place] Primary Care Unavailable Oleghe OLS, Efewongbe Attending Unavailabl e Tannho, [place] Primary Care Unavailable Siska, Gonzalo Attending Unavailable Siska, Gonzalo Referring Unavailable Siska, Gonzalo Consulting [facility]available [facility] [place] Primary Care Unavailable Siska, Gonzalo Attending Unavailable Siska, Gonzalo Referring Unavailable Tannho, Miryam Primary Care Unavailable Siska, Gonzalo Attending Unavailable Siska, Gonzalo Referring Unavailable Siska, Gonzalo Consulting Unavailable Tannho, [place] Primary Care Unavailable Siska, Gonzalo Attending Unavailable Siska, Gonzalo Referring Unavailable Siska, Gonzalo Consulting Unavailable Tannho, Miryam Primary Care Unavailable Siska, Gonzalo Referring Unavailable Siska, Gonzalo Attending Unavailable Siska, Gonzalo Consulting Unavailable Tannho, [place] Primary Care Unavailable Siska, Gonzalo Referring Unavailable Siska, Gonzalo Attending Unavailable Siska, Gonzalo Consulting Unavailable Tannho, [place] Primary Care Unavailable Siska, Gonzalo Attending Unavailable Siska, Gonzalo Referring Unavailable Siska, Gonzalo Consulting Unavailable Tannho, Miryam Primary Care Unavailable Tannho, [place] Primary Care Unavailable Siska, Gonzalo Attending Unavailable Siska, Gonzalo Referring Unavailable Siska, Gonzalo Consulting Unavailable [facility], [place] Primary Care Unavailable Christa Michel Attending Unavailable William Cruz Consulting Unavailable [facility], [place] Primary Care Unavailable [facility], [place] Referring Unavailable William Cruz Attending Unavailable Ralph Haynes Attending Unavailable [facility] Primary Care Unavailable Michelle Gallardo Admitting Unavailable [...] Kerri Primary Care Unavailable SELF Referring Unavailable MIRAYM OROZCO Attending Unavailabl STARR Perez Attending Unavail [...] sources) Aspirin Drug Allergy 11-15-19 09 Intolerance [facility] (20 sources) ceFAZolin; Translations: [CEFAZOLIN SODIUM] Drug Allergy 08-10-19 19 [facility] (20 sources) Ibuprofen; Translations: [IBUPROFEN] Drug Allergy 11-08-19 16 [facility] Work Phone: (20 sources) Sulfamethoxazole / Trimethoprim; Translations: [SULFAMETHOXAZOLE-T RIMETHOPRIM] Drug Allergy 07-24-19 17 [facility] (20 sources) Sulfonamides (Antibiotic); Translations: [SULFA (SULFONAMIDE ANTIBIOTICS)] Drug Allergy 07-24-19 17 Hives, Unknown [facility] (20 sources) Peanut Butter [Other] Propensity to adverse reactions 11-15-19 [facility] (20 sources) ceFAZolin Drug Allergy 08-07-19 Hives [facility] (20 sources) peanut allergenic extract; Translations: [PEANUT] Drug Allergy 08-07-19 Anaphylaxis [facility] (20 sources) Sulfamethoxazole Drug Allergy 08-07-19 Other [facility] (20 sources) Trimethoprim Drug Allergy 08-07-19 Other [facility] (20 sources) Sulfonamides (Antibiotic) Allergy to substance 12-20-19 Unknown [facility] (1 source) OTHER; Translations: [OTHER] Propensity to adverse reactions (disorder) 11-15-19 [facility] Other [facility] (1 source) Peanut oil Propensity to adverse reactions to drug 05-04-19 Anaphylaxis [facility] (1 source) ceFAZolin Drug Allergy 10-27-19 [facility] (1 source) Ibuprofen Drug Allergy 10-27-19 [facility] (1 source) peanut allergenic extract Drug Allergy 10-27-19 [facility] (1 source) Sulfamethoxazole Drug Allergy 10-27-19 [facility] (1 source) Sulfonamides (Antibiotic) Drug allergy (disorder) 10-27-19 [facility] (1 source) Trimethoprim Drug Allergy 10-27-19 [facility] Medications Current Medications Medication Drug Class(es) Dates Sig (Normalized) Sig (Original) acetaminophen 500 mg oral tablet (20 sources) Start: 10-14-2024 End: 10-17-2024 Start: 06-09-2024 End: 10-17-2024 Start: 05-16-2024 End: 05-18-2024 take 650 mg by mouth every four hours as needed Start: 06-27-2022 End: 06-09-2024 take 2 tablets by mo [facility] twice daily acetaminophen (TYLENOL) 500 mg tablet Take 1,000 mg by mouth twice daily. Active Comment on above: Take 1,000 mg by [facility] twice daily. acetaminophen 325 mg / [...] Comment on above: Take 2 tablets by [facility] once daily. ciprofloxacin 250 mg oral tablet [...] Comment on above: Take 1 capsule by [facility] three times daily for 3 days. Start [...] incontinence docusate sodium 50 mg / sennosides, alf 8.6 mg oral tablet (20 sources) Start: [...] times a day. 02/15/2024 Active glucosamine 500 zr-qychmqfzr-ktiyhzrm comp 400 mg-D3 667 unit-C-Mn cap (20 sources) Start: 10-17-2019 take 1 capsule by mouth three times daily glucosamine 500 ix-mdfdjbaun-lzvscko n comp 400 mg-D3 667 unit-C-Mn cap Active 1 CAP PO THREE TIMES A DAY October 17, 2019 12:03pm Start: 10-17-2019 take 1 capsule by mo [facility] three times daily glucosamine 500 iw-uttmjbwby-bzqivycf comp 400 mg-D3 667 unit-C-Mn cap Active [...] 100 mg intravenously every twelve hours levonorgestrel 0.952274 mg/hr intrauterine system (20 sources) Progestin, Progestin-containing [...] on above: Take 2 tablets by mo [facility] three times daily as needed for up to 10 days. Take 1 tablet by [facility] three times daily as needed for pain [...] Start: 07-25-2021 take 1 capsule by mo [facility] twice daily Calcium Carbonate-Vitamin D3 Active 1 CAP PO TWICE A DAY July 24, 2021 11:00pm Start: 10-21-2017 End: 08-22-2024 take 1 tablet by mouth twice daily at mealtime ppprcyb-yohjmrpdf-zsnvwpe D3 (CALCIUM 500+D) 500 mg(1,250mg) -200 unit per tablet Take 1 tablet by mouth twice daily with meals. 180 tablet 3 10/21/2017 08/22/2024 Discontinued (Course of therapy completed) Comment on above: Take 1 tablet by [facility] twice daily with meals. 10 ml [...] on above: Take 1 capsule by mo [facility] three times daily. cyclobenzaprine hydrochloride 10 [...] extended release oral tablet (16 sources) Uncompetitive D-pynxbc-Y-aspartate Receptor Antagonist, Sigma-1 Agonist Start: 09-05-2024 End: [...] Comment on above: Take 1 tablet by [facility] once daily. miSOPROStol 0.2 mg oral [...] on above: Take 1 capsule by mo [facility] twice daily with meals for 7 days. omeprazole 20 mg delayed rel ease oral capsule (20 sources) Proton Pump Inhibitor Start: 11-13-2017 End: 08-22-2024 Comment on above: Take 1 capsule by mo [facility] once daily. TAKE 1 CAPSULE BY [facility] ONCE DAILY ondansetron 4 mg disintegrat ing [...] Start: 05-11-2024 End: 05-18-2024 polyethylene glycol 3350 83234 mg powder for oral solution (20 sources) [...] Comment on above: TAKE 1 CAPSULE BY [facility] ONCE DAILY. potassium bicarbonate 20 meq effervescent [...] Xa Inhibitor Start: 04-14-2016 End: 04-29-2016 sennosides, alf 8.6 mg oral tablet (2 sources) Start: [...] Comment on above: Take 1 capsule by [facility] once daily. 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, [address] BUN/CRE Normal 10-20 [facility] Comment on above: Result Comment: Canc elled via OM: Order cancelled - Patient discharged Performed By: #### L 500.2500, L100.0100 ####[facility] [address] [place], [address] Calcium Normal 7.6-11.0 [facility] Comment on above: Result Comment: Canc elled via OM: Order cancelled - Patient discharged Performed By: #### L 500.2500, L100.0100 ####[facility] [address] [place], [address] CL Normal 98-108 [facility] Comment on above: Result Comment: Canc elled via OM: Order cancelled - Patient discharged Performed By: #### L 500.2500, L100.0100 ####[facility] [address] [place], [address] CO2 Normal 21.0-32.0 [facility] Comment on above: Result Comment: Canc elled via OM: Order cancelled - Patient discharged Performed By: #### L 500.2500, L100.0100 ####[facility] [address] [place], [address] CREAT,SERUM Normal 0.70-1.20 [facility] Comment on above: Result Comment: Canc elled via OM: Order cancelled - Patient discharged Performed By: #### L 500.2500, L100.0100 ####[facility] [address] [place], [address] eGFR Normal >60 [facility] Comment on above: Result Comment: Canc elled via OM: Order cancelled - Patient discharged Performed By: #### L 500.2500, L100.0100 ####[facility] [address] [place], [address] GAP Normal 5-15 [facility] Comment on above: Result Comment: Canc elled via OM: Order cancelled - Patient discharged Performed By: #### L 500.2500, L100.0100 ####[facility] [address] [place], [address] GLU Normal 70-99 [facility] Comment on above: Result Comment: Canc elled via OM: Order cancelled - Patient discharged Performed By: #### L 500.2500, L100.0100 ####[facility] [address] [place], [address] Potassium Normal 3.3-5.1 [facility] Comment on above: Result Comment: Canc elled via OM: Order cancelled - Patient discharged Performed By: #### L 500.2500, L100.0100 ####[facility] [address] [place], [address] Basic Metabolic Profile (BMP) Normal 133-145 [facility] Comment on above: Result Comment: Canc elled via OM: Order cancelled - Patient discharged Performed By: #### L 500.2500, L100.0100 ####[facility] [address] [place], [address] CBC W/Diff, Automatedon 08-0 6-2024 Absolute Neut Normal 2.0-7.7 [facility] Comment on above: Result Comment: Canc elled via OM: Order cancelled - Patient discharged Performed By: #### L 500.2500, L100.0100 ####[facility] [address] [place], [address] HCT Normal 37-47 [facility] Comment on above: Result Comment: Canc elled via OM: Order cancelled - Patient discharged Performed By: #### L 500.2500, L100.0100 ####[facility] [address] [place], [address] HGB Normal 12.0-15.0 [facility] Comment on above: Result Comment: Canc elled via OM: Order cancelled - Patient discharged Performed By: #### L 500.2500, L100.0100 ####[facility] [address] [place], [address] MCH Normal 27.0-32.0 [facility] Comment on above: Result Comment: Canc elled via OM: Order cancelled - Patient discharged Performed By: #### L 500.2500, L100.0100 ####[facility] [address] [place], [address] MCHC Normal 32-36 [facility] Comment on above: Result Comment: Canc elled via OM: Order cancelled - Patient discharged Performed By: #### L 500.2500, L100.0100 ####[facility] [address] [place], [address] MCV Normal 81-99 [facility] Comment on above: Result Comment: Canc elled via OM: Order cancelled - Patient discharged Performed By: #### L 500.2500, L100.0100 ####[facility] [address] [place], [address] NEUT% Normal 47-70 [facility] Comment on above: Result Comment: Canc elled via OM: Order cancelled - Patient discharged Performed By: #### L 500.2500, L100.0100 ####[facility] [address] [place], [address] PLT Normal 150-450 [facility] Comment on above: Result Comment: Canc elled via OM: Order cancelled - Patient discharged Performed By: #### L 500.2500, L100.0100 ####[facility] [address] [place], [address] RBC Normal 4.2-5.4 [facility] Comment on above: Result Comment: Canc elled via OM: Order cancelled - Patient discharged Performed By: #### L 500.2500, L100.0100 ####[facility] [address] [place], [address] RDW CV Normal 11.6-14.6 [facility] Comment on above: Result Comment: Canc elled via OM: Order cancelled - Patient discharged Performed By: #### L 500.2500, L100.0100 ####[facility] [address] [place], [address] RDW SD Normal 35.1-43.9 [facility] Comment on above: Result Comment: Canc elled via OM: Order cancelled - Patient discharged Performed By: #### L 500.2500, L100.0100 ####[facility] [address] [place], [address] WBC Normal 4.4-11.0 [facility] Comment on above: Result Comment: Canc elled via OM: Order cancelled - Patient discharged Performed By: #### L 500.2500, L100.0100 ####[facility] [address] [place], [address] Basic Metabolic Profile (BMP )on 11-02-2024 BUN Normal 4-19 [facility] Comment on above: Result Comment: Canc elled via OM: Order cancelled - Patient discharged Performed By: #### L 500.2500, L100.0100 ####[facility] [address] [place], [address] BUN/CRE Normal 10-20 [facility] Comment on above: Result Comment: Canc elled via OM: Order cancelled - Patient discharged Performed By: #### L 500.2500, L100.0100 ####[facility] [address] [place], [address] Calcium Normal 7.6-11.0 [facility] Comment on above: Result Comment: Canc elled via OM: Order cancelled - Patient discharged Performed By: #### L 500.2500, L100.0100 ####[facility] [address] [place], [address] CL Normal 98-108 [facility] Comment on above: Result Comment: Canc elled via OM: Order cancelled - Patient discharged Performed By: #### L 500.2500, L100.0100 ####[facility] [address] [place], [address] CO2 Normal 21.0-32.0 [facility] Comment on above: Result Comment: Canc elled via OM: Order cancelled - Patient discharged Performed By: #### L 500.2500, L100.0100 ####[facility] [address] [place], [address] CREAT,SERUM Normal 0.70-1.20 [facility] Comment on above: Result Comment: Canc elled via OM: Order cancelled - Patient discharged Performed By: #### L 500.2500, L100.0100 ####[facility] [address] [place], [address] eGFR Normal >60 [facility] Comment on above: Result Comment: Canc elled via OM: Order cancelled - Patient discharged Performed By: #### L 500.2500, L100.0100 ####[facility] [address] [place], [address] GAP Normal 5-15 [facility] Comment on above: Result Comment: Canc elled via OM: Order cancelled - Patient discharged Performed By: #### L 500.2500, L100.0100 ####[facility] [address] [place], [address] GLU Normal 70-99 [facility] Comment on above: Result Comment: Canc elled via OM: Order cancelled - Patient discharged Performed By: #### L 500.2500, L100.0100 ####[facility] [address] [place], [address] Potassium Normal 3.3-5.1 [facility] Comment on above: Result Comment: Canc elled via OM: Order cancelled - Patient discharged Performed By: #### L 500.2500, L100.0100 ####[facility] [address] [place], [address] Basic Metabolic Profile (BMP) Normal 133-145 [facility] Comment on above: Result Comment: Canc elled via OM: Order cancelled - Patient discharged Performed By: #### L 500.2500, L100.0100 ####[facility] [address] [place], [address] CBC W/Diff, Automatedon 07-3 0-2024 Absolute Neut Normal 2.0-7.7 [facility] Comment on above: Result Comment: Canc elled via OM: Order cancelled - Patient discharged Performed By: #### L 500.2500, L100.0100 ####[facility] [address] [place], [address] HCT Normal 37-47 [facility] Comment on above: Result Comment: Canc elled via OM: Order cancelled - Patient discharged Performed By: #### L 500.2500, L100.0100 ####[facility] [address] [place], [address] HGB Normal 12.0-15.0 [facility] Comment on above: Result Comment: Canc elled via OM: Order cancelled - Patient discharged Performed By: #### L 500.2500, L100.0100 ####[facility] [address] [place], [address] MCH Normal 27.0-32.0 [facility] Comment on above: Result Comment: Canc elled via OM: Order cancelled - Patient discharged Performed By: #### L 500.2500, L100.0100 ####[facility] [address] [place], [address] MCHC Normal 32-36 [facility] Comment on above: Result Comment: Canc elled via OM: Order cancelled - Patient discharged Performed By: #### L 500.2500, L100.0100 ####[facility] [address] [place], [address] MCV Normal 81-99 [facility] Comment on above: Result Comment: Canc elled via OM: Order cancelled - Patient discharged Performed By: #### L 500.2500, L100.0100 ####[facility] [address] [place], [address] NEUT% Normal 47-70 [facility] Comment on above: Result Comment: Canc elled via OM: Order cancelled - Patient discharged Performed By: #### L 500.2500, L100.0100 ####[facility] [address] [place], [address] PLT Normal 150-450 [facility] Comment on above: Result Comment: Canc elled via OM: Order cancelled - Patient discharged Performed By: #### L 500.2500, L100.0100 ####[facility] [address] [place], [address] RBC Normal 4.2-5.4 [facility] Comment on above: Result Comment: Canc elled via OM: Order cancelled - Patient discharged Performed By: #### L 500.2500, L100.0100 ####[facility] [address] [place], [address] RDW CV Normal 11.6-14.6 [facility] Comment on above: Result Comment: Canc elled via OM: Order cancelled - Patient discharged Performed By: #### L 500.2500, L100.0100 ####[facility] [address] [place], [address] RDW SD Normal 35.1-43.9 [facility] Comment on above: Result Comment: Canc elled via OM: Order cancelled - Patient discharged Performed By: #### L 500.2500, L100.0100 ####[facility] [address] [place], [address] WBC Normal 4.4-11.0 [facility] Comment on above: Result Comment: Canc elled via OM: Order cancelled - Patient discharged Performed By: #### L 500.2500, L100.0100 ####[facility] [address] [place], [address] [facility] Telephone ([facility]) JOHNMARI ([id number]) 1940 F Date Time Provider Department 10/27/24 LIZY CAPONE [facility] During your visit today, we recorded the following information about you: Olga Dillard RN 10/27/2024 9:01 AM Signed Kamille with [facility] calls to request orders for [...] RN 10/27/2024 9:17 AM Signed Kamille with [facility] notified. Pamela Shafer RN Allergies [...] 10/27/2016: M (more content not included)... Normal [facility] Basic Metabolic Profile (BMP )on 10-26-2024 BUN Normal 4-19 [facility] Comment on above: Result Comment: Canc elled via OM: Order cancelled - Patient discharged Performed By: #### L 500.2500, L100.0100 ####[facility] [address] [place], [address] BUN/CRE Normal 10-20 [facility] Comment on above: Result Comment: Canc elled via OM: Order cancelled - Patient discharged Performed By: #### L 500.2500, L100.0100 ####[facility] [address] [place], [address] Calcium Normal 7.6-11.0 [facility] Comment on above: Result Comment: Canc elled via OM: Order cancelled - Patient discharged Performed By: #### L 500.2500, L100.0100 ####[facility] [address] [place], [address] CL Normal 98-108 [facility] Comment on above: Result Comment: Canc elled via OM: Order cancelled - Patient discharged Performed By: #### L 500.2500, L100.0100 ####[facility] [address] [place], [address] CO2 Normal 21.0-32.0 [facility] Comment on above: Result Comment: Canc elled via OM: Order cancelled - Patient discharged Performed By: #### L 500.2500, L100.0100 ####[facility] [address] [place], [address] CREAT,SERUM Normal 0.70-1.20 [facility] Comment on above: Result Comment: Canc elled via OM: Order cancelled - Patient discharged Performed By: #### L 500.2500, L100.0100 ####[facility] [address] [place], [address] eGFR Normal >60 [facility] Comment on above: Result Comment: Canc elled via OM: Order cancelled - Patient discharged Performed By: #### L 500.2500, L100.0100 ####[facility] [address] [place], [address] GAP Normal 5-15 [facility] Comment on above: Result Comment: Canc elled via OM: Order cancelled - Patient discharged Performed By: #### L 500.2500, L100.0100 ####[facility] [address] [place], [address] GLU Normal 70-99 [facility] Comment on above: Result Comment: Canc elled via OM: Order cancelled - Patient discharged Performed By: #### L 500.2500, L100.0100 ####[facility] [address] [place], [address] Potassium Normal 3.3-5.1 [facility] Comment on above: Result Comment: Canc elled via OM: Order cancelled - Patient discharged Performed By: #### L 500.2500, L100.0100 ####[facility] [address] [place], [address] Basic Metabolic Profile (BMP) Normal 133-145 [facility] Comment on above: Result Comment: Canc elled via OM: Order cancelled - Patient discharged Performed By: #### L 500.2500, L100.0100 ####[facility] [address] [place], [address] CBC W/Diff, Automatedon 07-2 Absolute Neut Normal 2.0-7.7 [facility] Comment on above: Result Comment: Canc elled via OM: Order cancelled - Patient discharged Performed By: #### L 500.2500, L100.0100 ####[facility] [address] [place], [address] HCT Normal 37-47 [facility] Comment on above: Result Comment: Canc elled via OM: Order cancelled - Patient discharged Performed By: #### L 500.2500, L100.0100 ####[facility] [address] [place], [address] HGB Normal 12.0-15.0 [facility] Comment on above: Result Comment: Canc elled via OM: Order cancelled - Patient discharged Performed By: #### L 500.2500, L100.0100 ####[facility] [address] [place], [address] MCH Normal 27.0-32.0 [facility] Comment on above: Result Comment: Canc elled via OM: Order cancelled - Patient discharged Performed By: #### L 500.2500, L100.0100 ####[facility] [address] [place], [address] MCHC Normal 32-36 [facility] Comment on above: Result Comment: Canc elled via OM: Order cancelled - Patient discharged Performed By: #### L 500.2500, L100.0100 ####[facility] [address] [place], [address] MCV Normal 81-99 [facility] Comment on above: Result Comment: Canc elled via OM: Order cancelled - Patient discharged Performed By: #### L 500.2500, L100.0100 ####[facility] [address] [place], [address] NEUT% Normal 47-70 [facility] Comment on above: Result Comment: Canc elled via OM: Order cancelled - Patient discharged Performed By: #### L 500.2500, L100.0100 ####[facility] [address] [place], [address] PLT Normal 150-450 [facility] Comment on above: Result Comment: Canc elled via OM: Order cancelled - Patient discharged Performed By: #### L 500.2500, L100.0100 ####[facility] [address] [place], [address] RBC Normal 4.2-5.4 [facility] Comment on above: Result Comment: Canc elled via OM: Order cancelled - Patient discharged Performed By: #### L 500.2500, L100.0100 ####[facility] [address] [place], [address] RDW CV Normal 11.6-14.6 [facility] Comment on above: Result Comment: Canc elled via OM: Order cancelled - Patient discharged Performed By: #### L 500.2500, L100.0100 ####[facility] [address] [place], [address] RDW SD Normal 35.1-43.9 [facility] Comment on above: Result Comment: Canc elled via OM: Order cancelled - Patient discharged Performed By: #### L 500.2500, L100.0100 ####[facility] [address] [place], [address] WBC Normal 4.4-11.0 [facility] Comment on above: Result Comment: Canc elled via OM: Order cancelled - Patient discharged Performed By: #### L 500.2500, L100.0100 ####[facility] [address] [place], [address] Emergency Department Summary on 10-26-2024 Emergency Department Summary Normal [facility] Cardiology Visit Reporton Cardiology Visit Report Normal [facility] CNOVon 10-24-2024 CNOV Office Visit ([facility] ) MARI LOPEZ ([id number]) 1940 F Date Time Provider Department 10/24/24 [...] 7 Day TCM Pt was admitted to [facility] on 09/28/24, following a fall, for lower extremity pain, and was discharged on 10/04/24 to TCU with debility. She was sent back down to ER on 10/12/24 for chest pains. Discharged home 10/20/24 with diagnosis of chronic renal failure, stage 4. She was discharged home with her friend, Alex. Follows with Cardio, manager logistic, urologist, going to wound center, neurologist, ortho. [...] at home > 90%. -Pt discharged from [facility] on 10/20/24. 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 She is on an anticoagulant. Patient did [...] bid. Cor (more content not included)... Normal [facility] Telephone ([facility]) JOHNMARI ([id number]) 1940 F Date Time Provider Department 10/21/24 LIZY CAPONE During your visit today, we recorded the following information about you: Lora Najera RN 10/21/2024 12:51 PM Signed Lora from [facility] calls and states that patient was restarted for residential services and patient will be seen 1 [...] osteoarthritis of (more content not included)... Normal [facility] 10-20-2024 [facility] ([id number]) 1940 F Date Time Provider Department 10/20/24 [facility] During your visit today, we recorded the following information about you: Analia Gracia RN 10/20/2024 12:14 PM Signed [facility] called in and reports Pt will be discharged form TCU tomorrow with SN/PT/OT/ST. Pt was admitted for encephalopathy, Chronic Renal Disease, and R lower extremity and thigh wound She is asking if provider will follow. Please call and advise. KEVIN Ozuna Mark D, MD 10/20/2024 2:09 PM Signed I will follow for [facility] MD Samia Masters Amanda, RN 10/20/2024 2:[address] [facility] KAROLINE called and is notified of [...] [1003] 05/07/2005 07/12/2021 INJURY TRUNK SITE NEC [[id number]] 01/16/2006 07/01/2007 Anemia in chronic kidney disease (CKD) [N18.9, *03/17/2006 Non-Healing Surgical Wound [T81.89XA] 03/16/2007 05/18/2009 FEMALE STRESS INCONTINENCE [N39.3] 07/12/2008 MASS IN SUBCUTANEOUS TISSUE [R22.9] 07/21/2008 08/18/2018 Pain in Joint, Lower Leg [M25.569] 11/14/2008 08/21/2009 Rotator cuff syndrome [M75.100] 02/19/2011 Insomnia [G47.00] 07/30/2011 Screening for colon cancer [Z12.11] 11/24/2016 04 (more content not included)... Normal [facility] Absolute lymphocyte countOrd ered By: Gautam Hardy on 10-19-2024 Lymphocytes Auto (Unsp spec) [#/Vol] 1.84 10*3/uL 0.83-4.51 [facility] Anion gap in Serum or Plasma Ordered By: Gautam Hardy on 10-19-2024 Anion gap [Moles/Vol] 11 mmol/L 5-15 [facility] Automated lymphocyte count a s percentage of total leukocytesOrdered By: Gautam Hardy on 10-19-2024 Lymphocytes/100 WBC Auto (Unsp spec) 39.9 % - [facility] BUN/creatinine ratioOrdered By: Gautam Hardy on 10-19-2024 Urea nitrogen/Creatinine [Mass ratio] 19.7 mg/mg 10- [facility] Basic Metabolic Profile (BMP )on 10-19-2024 BUN/CRE 19.7 RATIO Normal - [facility] Comment on above: Performed By: #### L 100.0100, L500.2500 ####[facility] [address] [place], [address] Calcium [Mass/Vol] 8.3 mg/dL Normal 7.6-11.0 [facility] Comment on above: Performed By: #### L 100.0100, L500.2500 ####[facility] [address] [place], [address] Chloride [Moles/Vol] 110 mmol/L High 98-108 [facility] Comment on above: Performed By: #### L 100.0100, L500.2500 ####[facility] [address] [place], [address] CO2 [Moles/Vol] 22.5 mmol/L Normal 21.0-32.0 [facility] Comment on above: Performed By: #### L 100.0100, L500.2500 ####[facility] [address] [place], [address] Creatinine [Mass/Vol] 2.67 mg/dL High 0.70-1.20 [facility] Comment on above: Performed By: #### L 100.0100, L500.2500 ####[facility] [address] [place], [address] ECRCL 20.12 ml/min Low 50-250 [facility] Comment on above: Performed By: #### L 100.0100, L500.2500 ####[facility] [address] [place], [address] GAP 11 Normal 5-15 [facility] Comment on above: Performed By: #### L 100.0100, L500.2500 ####[facility] [address] [place], [address] GFR/1.73 sq M.predicted among non-blacks MDRD (S/P/Bld) [Vol rate/Area] 17 mL/min/{1.73_m2} Low >60 [facility] Comment on above: Result Comment: mL/m in/1.73m2 CKD-EPI Creatinine Equation (2020) Performed By: #### L 100.0100, L500.2500 ####[facility] [address] [place], [address] Glucose [Mass/Vol] 80 mg/dL Normal 70-99 [facility] Comment on above: Performed By: #### L 100.0100, L500.2500 ####[facility] [address] [place], [address] Potassium [Moles/Vol] 4.3 mmol/L Normal 3.3-5.1 [facility] Comment on above: Performed By: #### L 100.0100, L500.2500 ####[facility] [address] [place], [address] Sodium [Moles/Vol] 144 mmol/L Normal 133-145 [facility] Comment on above: Performed By: #### L 100.0100, L500.2500 ####[facility] [address] [place], [address] Urea nitrogen [Mass/Vol] 53 mg/dL High 4-19 [facility] Comment on above: Performed By: #### L 100.0100, L500.2500 ####[facility] [address] [place], [address] Basophil percentageOrdered B y: Gautam Hardy on 10-19-2024 Basophils/100 WBC (Bld) 0.9 % 0-1 [facility] CBC W/Diff, Automatedon 10-04 Absolute Lymph 1.84 X10 3/uL Normal 0.83-4.51 [facility] Comment on above: Performed By: #### L 100.0100, L500.2500 ####[facility] [address] [place], [address] Absolute Neut 2.0 X10 3/uL Normal 2.0-7.7 [facility] Comment on above: Performed By: #### L 100.0100, L500.2500 ####[facility] [address] [place], [address] Basophils/100 WBC (Bld) 0.9 % Normal 0-1 [facility] Comment on above: Performed By: #### L 100.0100, L500.2500 ####[facility] [address] [place], [address] Eosinophils/100 WBC (Bld) 7.8 % High 0-5 [facility] Comment on above: Performed By: #### L 100.0100, L500.2500 ####[facility] [address] [place], [address] Erythrocyte distribution width (RBC) [Ratio] 14.1 % Normal 11.6-14.6 [facility] Comment on above: Performed By: #### L 100.0100, L500.2500 ####[facility] [address] [place], [address] Hematocrit (Bld) [Volume fraction] 28.1 % Low 37-47 [facility] Comment on above: Performed By: #### L 100.0100, L500.2500 ####[facility] [address] [place], [address] Hemoglobin (Bld) [Mass/Vol] 8.6 g/dL Low 12.0-15.0 [facility] Comment on above: Performed By: #### L 100.0100, L500.2500 ####[facility] [address] [place], [address] IG% 0.200 Normal 0.0-0.9 [facility] Comment on above: Result Comment: IG% - Immature Granulocytes (promyelocytes, myelocytes andmetamyelocytes) > 1% indicates that a LEFT SHIFT is Present. Performed By: #### L 100.0100, L500.2500 ####[facility] [address] [place], [address] Lymphocytes/100 WBC (Bld) 39.9 % Normal 19-41 [facility] Comment on above: Performed By: #### L 100.0100, L500.2500 ####[facility] [address] [place], [address] MCH (RBC) [Entitic mass] 32.2 pg High 27.0-32.0 [facility] Comment on above: Performed By: #### L 100.0100, L500.2500 ####[facility] [address] [place], [address] MCHC (RBC) [Mass/Vol] 30.6 g/dL Low 32-36 [facility] Comment on above: Performed By: #### L 100.0100, L500.2500 ####[facility] [address] [place], [address] MCV (RBC) [Entitic vol] 105.2 fL High 81-99 [facility] Comment on above: Performed By: #### L 100.0100, L500.2500 ####[facility] [address] [place], [address] Monocytes/100 WBC (Bld) 7.8 % Normal 0-10 [facility] Comment on above: Performed By: #### L 100.0100, L500.2500 ####[facility] [address] [place], [address] Neutrophils/100 WBC (Bld) 43.4 % Low 47-70 [facility] Comment on above: Performed By: #### L 100.0100, L500.2500 ####[facility] [address] [place], [address] Nucleated RBC (Bld) [#/Vol] 0 10*3/uL Normal 0-5 [facility] Comment on above: Performed By: #### L 100.0100, L500.2500 ####[facility] [address] [place], [address] Platelet mean volume (Bld) [Entitic vol] 13.2 fL High 6.2-12.0 [facility] Comment on above: Performed By: #### L 100.0100, L500.2500 ####[facility] [address] [place], [address] Platelets (Bld) [#/Vol] 185 10*3/uL Normal 150-450 [facility] Comment on above: Performed By: #### L 100.0100, L500.2500 ####[facility] [address] [place], [address] RBC (Bld) [#/Vol] 2.67 10*6/uL Low 4.2-5.4 [facility] Comment on above: Performed By: #### L 100.0100, L500.2500 ####[facility] [address] [place], [address] RDW SD 53.2 fl High 35.1-43.9 [facility] Comment on above: Performed By: #### L 100.0100, L500.2500 ####[facility] [address] [place], [address] WBC (Bld) [#/Vol] 4.6 10*3/uL Normal 4.4-11.0 [facility] Comment on above: Performed By: #### L 100.0100, L500.2500 ####[facility] [address] [place], [address] Carbon dioxide, total [Moles /volume] in Central venous bloodOrdered By: Gautam Hardy on 10-19-2024 CO2 [Moles/Vol] 22.5 mmol/L 21.0-32.0 [facility] Chloride assayOrdered By: Fernando Hardy on 10-19-2024 Chloride [Moles/Vol] 110 mmol/L High 98-108 [facility] Eosinophil percentageOrdered By: Gautam Hardy on 10-19-2024 Eosinophils/100 WBC (Bld) 7.8 % High 0-5 [facility] Erythrocyte distribution wid th ratioOrdered By: Gautam Hardy on 10-19-2024 Erythrocyte distribution width (RBC) [Ratio] 14.1 % 11.6-14.6 [facility] Erythrocyte distribution wid th standard deviationOrdered By: Gautam Hardy on 10-19-2024 Erythrocyte distribution width (RBC) [Ratio] 53.2 fl High 35.1-43.9 [facility] Glomerular filtration rate ( GFR) estimation/1.73 sq m using serum, plasma, or whole bOrdered By: Gautam Hardy on 10-19-2024 GFR/1.73 sq M.predicted among non-blacks MDRD (S/P/Bld) [Vol rate/Area] 17 mL/min/{1.73_m2} Low >60 [facility] Hematocrit Auto (Bld) [Volum e fraction]Ordered By: Gautam Hardy on 10-19-2024 Hematocrit (Bld) [Volume fraction] 28.1 % Low 37-47 [facility] Hemoglobin measurementOrdere d By: Gautam Hardy 10-19-2024 Hemoglobin (Bld) [Mass/Vol] 8.6 g/dL Low 12.0-15.0 [facility] Immature granulocytes/100 WB C Auto (Bld)Ordered By: Gautam Hardy on 10-19-2024 Immature granulocytes/100 WBC (Bld) 0.200 % 0.0-0.9 [facility] MCV (mean corpuscular volume ) determinationOrdered By: Gautam Hardy on 10-19-2024 MCV (RBC) [Entitic vol] 105.2 fL High 81-99 [facility] Mean corpuscular hemoglobin (MCH) determinationOrdered By: Gautam Hardy on 10-19-2024 MCH (RBC) [Entitic mass] 32.2 pg High 27.0-32.0 [facility] Monocyte percentageOrdered B y: Gautam Hardy on 10-19-2024 Monocytes/100 WBC (Bld) 7.8 % 0-10 [facility] Neutrophil percentageOrdered By: Gautam Hardy 10-19-2024 Neutrophils/100 WBC (Bld) 43.4 % Low 47-70 [facility] Platelet countOrdered By: Fernando Hardy on 10-19-2024 Platelets (Bld) [#/Vol] 185 10*3/uL 150-450 [facility] Potassium measurement (mass/ volume)Ordered By: Gautam Hardy on 10-19-2024 Potassium (Unsp spec) [Mass/Vol] 4.3 mmol/L 3.3-5.1 [facility] RBC Auto (Bld) [#/Vol]Ordere d By: Gautam Hardy on 10-19-2024 RBC (Bld) [#/Vol] 2.67 10*6/uL Low 4.2-5.4 [facility] Serum creatinine measurement (mass/volume)Ordered By: Gautam Hardy 10-19-2024 Creatinine [Mass/Vol] 2.67 mg/dL High 0.70-1.20 [facility] Serum glucose measurement (m ass/volume)Ordered By: Gautam Hardy on 10-19-2024 Glucose [Mass/Vol] 80 mg/dL 70-99 [facility] Serum or plasma calcium farheen urement (mass/volume)Ordered By: Gautam Hardy 10-19-2024 Calcium [Mass/Vol] 8.3 mg/dL 7.6-11.0 [facility] Serum or plasma urea nitroge n measurement (mass/volume)Ordered By: Gautam Hardy on 10-19-2024 Urea nitrogen [Mass/Vol] 53 mg/dL High 4-19 [facility] Sodium levelOrdered By: Gautam Hardy on 10-19-2024 Sodium [Moles/Vol] 144 mmol/L 133-145 [facility] White blood cell (WBC) count Ordered By: Gautam Hardy on 10-19-2024 WBC (Bld) [#/Vol] 4.6 10*3/uL 4.4-11.0 [facility] Consultation - Nephrologyon 10-14-2024 Consultation - Nephrology Normal [facility] EGD Reporton 10-14-2024 EGD Report Normal [facility] MR/POSTOP.ANEon 10-14-2024 MR/POSTOP.ANE Normal [facility] MR/[id number] 10-14-2024 MR/POSTOPAN2 Normal [facility] HH, Hemoglobin AND Hematocri ton 10-13-2024 Hematocrit (Bld) [Volume fraction] 28.5 % Low 37-47 [facility] Comment on above: Performed By: #### L 100.0600 ####[facility] [address] [place], [place], [id number]) Hemoglobin (Bld) [Mass/Vol] 8.3 g/dL Low 12.0-15.0 [facility] Comment on above: Performed By: #### L 100.0600 ####[facility] [address] [place], [place], [id number]) Hematocrit Auto (Bld) [Volum e fraction]Ordered By: Gautam Hardy on 10-13-2024 Hematocrit (Bld) [Volume fraction] 28.5 % Low [address] Hemoglobin measurementOrdere d By: Gautam Hardy on 10-13-2024 Hemoglobin (Bld) [Mass/Vol] 8.3 g/dL Low 12.0-15.0 [facility] Stool Occult Blood iFOBon STOB Positive Normal [facility] Comment on above: Performed By: #### M 100.7900 ####[facility] [address] [place], [place], [id number] Stool gastrointestinal hemog lobin detection by immunologic methodOrdered By: Gautam Antony on 10-13-2024 Lower GI hemoglobin IA Ql (Stl) Positive Abnormal [facility] Absolute lymphocyte countOrd ered By: Alexis Firend on 10-12-2024 Lymphocytes Auto (Unsp spec) [#/Vol] 1.25 10*3/uL 0.83-4.51 [facility] Absolute lymphocyte countOrd ered By: Gautam Hardy on 10-12-2024 Lymphocytes Auto (Unsp spec) [#/Vol] 1.62 10*3/uL 0.83-4.51 [facility] Anion gap in Serum or Plasma Ordered By: Alexis Friend on 10-12-2024 Anion gap [Moles/Vol] 12 mmol/L 08-18 [facility] Anion gap in Serum or Plasma Ordered By: Gautam Hardy on 10-12-2024 Anion gap [Moles/Vol] 12 mmol/L 08-18 [facility] Automated lymphocyte count a s percentage of total leukocytesOrdered By: Alexis Friend on 10-12-2024 Lymphocytes/100 WBC Auto (Unsp spec) 19.0 % [facility] Automated lymphocyte count a s percentage of total leukocytesOrdered By: Gautam Hardy on 10-12-2024 Lymphocytes/100 WBC Auto (Unsp spec) 37.9 % [facility] BUN/creatinine ratioOrdered By: Alexis Friend on 10-12-2024 Urea nitrogen/Creatinine [Mass ratio] 23.9 mg/mg High 01-23 [facility] BUN/creatinine ratioOrdered By: Gautam Hardy on 10-12-2024 Urea nitrogen/Creatinine [Mass ratio] 25.7 mg/mg High 01-23 [facility] Basic Metabolic Profile (BMP )on 10-12-2024 BUN/CRE 25.7 RATIO [facility] 01-23 [facility] Comment on above: Performed By: #### L 500.2500, L100.0100 ####[facility] [address] [place], [address] Calcium [Mass/Vol] 8.0 mg/dL Normal 7.6-11.0 [facility] Comment on above: Performed By: #### L 500.2500, L100.0100 ####[facility] [address] [place], [address] Chloride [Moles/Vol] 110 mmol/L High 98-108 [facility] Comment on above: Performed By: #### L 500.2500, L100.0100 ####[facility] [address] [place], [address] CO2 [Moles/Vol] 21.9 mmol/L Normal 21.0-32.0 [facility] Comment on above: Performed By: #### L 500.2500, L100.0100 ####[facility] [address] [place], [address] Creatinine [Mass/Vol] 2.88 mg/dL High 0.70-1.20 [facility] Comment on above: Performed By: #### L 500.2500, L100.0100 ####[facility] [address] [place], [address] ECRCL 18.44 ml/min Low 50-250 [facility] Comment on above: Performed By: #### L 500.2500, L100.0100 ####[facility] [address] [place], [address] GAP 12 Normal 5-15 [facility] Comment on above: Performed By: #### L 500.2500, L100.0100 ####[facility] [address] [place], [address] GFR/1.73 sq M.predicted among non-blacks MDRD (S/P/Bld) [Vol rate/Area] 16 mL/min/{1.73_m2} Low >60 [facility] Comment on above: Result Comment: mL/m in/1.73m2 CKD-EPI Creatinine Equation (2020) Performed By: #### L 500.2500, L100.0100 ####[facility] [address] [place], [address] Glucose [Mass/Vol] 84 mg/dL Normal 70-99 [facility] Comment on above: Performed By: #### L 500.2500, L100.0100 ####[facility] [address] [place], [address] Potassium [Moles/Vol] 4.3 mmol/L Normal 3.3-5.1 [facility] Comment on above: Performed By: #### L 500.2500, L100.0100 ####[facility] [address] [place], [address] Sodium [Moles/Vol] 144 mmol/L Normal 133-145 [facility] Comment on above: Performed By: #### L 500.2500, L100.0100 ####[facility] [address] [place], [address] Urea nitrogen [Mass/Vol] 74 mg/dL High 4-19 [facility] Comment on above: Performed By: #### L 500.2500, L100.0100 ####[facility] [address] [place], [address] Basophil percentageOrdered B y: Alexis Friend on 10-12-2024 Basophils/100 WBC (Bld) 0.5 % 0-1 [facility] Basophil percentageOrdered B y: Gautam Antony on 10-12-2024 Basophils/100 WBC (Bld) 0.9 % 0-1 [facility] Bilirubin, totalOrdered By: Alexis Kingo on 10-12-2024 Bilirubin [Mass/Vol] 0.23 mg/dL 0.00-1.30 [facility] CBC W/Diff, Automatedon Absolute Lymph 1.25 X10 3/uL Normal 0.83-4.51 [facility] Comment on above: Performed By: #### L 100.0100, L500.4050 ####[facility] [address] [place], [address] Absolute Neut 4.6 X10 3/uL Normal 2.0-7.7 [facility] Comment on above: Performed By: #### L 100.0100, L500.4050 ####[facility] [address] [place], [address] Basophils/100 WBC (Bld) 0.5 % Normal 0-1 [facility] Comment on above: Performed By: #### L 100.0100, L500.4050 ####[facility] [address] [place], [address] Eosinophils/100 WBC (Bld) 5.2 % High 0-5 [facility] Comment on above: Performed By: #### L 100.0100, L500.4050 ####[facility] [address] [place], [address] Erythrocyte distribution width (RBC) [Ratio] 14.3 % Normal 11.6-14.6 [facility] Comment on above: Performed By: #### L 100.0100, L500.4050 ####[facility] [address] [place], [address] Hematocrit (Bld) [Volume fraction] 31.0 % Low 37-47 [facility] Comment on above: Performed By: #### L 100.0100, L500.4050 ####[facility] [address] [place], [address] Hemoglobin (Bld) [Mass/Vol] 9.1 g/dL Low 12.0-15.0 [facility] Comment on above: Performed By: #### L 100.0100, L500.4050 ####[facility] [address] [place], [address] IG% 0.800 Normal 0.0-0.9 [facility] Comment on above: Result Comment: IG% - Immature Granulocytes (promyelocytes, myelocytes andmetamyelocytes) > 1% indicates that a LEFT SHIFT is Present. Performed By: #### L 100.0100, L500.4050 ####[facility] [address] [place], [address] Lymphocytes/100 WBC (Bld) 19.0 % Normal 19-41 [facility] Comment on above: Performed By: #### L 100.0100, L500.4050 ####[facility] [address] [place], [address] MCH (RBC) [Entitic mass] 31.9 pg Normal 27.0-32.0 [facility] Comment on above: Performed By: #### L 100.0100, L500.4050 ####[facility] [address] [place], [address] MCHC (RBC) [Mass/Vol] 29.4 g/dL Low 32-36 [facility] Comment on above: Performed By: #### L 100.0100, L500.4050 ####[facility] [address] [place], [address] MCV (RBC) [Entitic vol] 108.8 fL High 81-99 [facility] Comment on above: Performed By: #### L 100.0100, L500.4050 ####[facility] [address] [place], [address] Monocytes/100 WBC (Bld) 5.3 % Normal 0-10 [facility] Comment on above: Performed By: #### L 100.0100, L500.4050 ####[facility] [address] [place], [address] Neutrophils/100 WBC (Bld) 69.2 % Normal 47-70 [facility] Comment on above: Performed By: #### L 100.0100, L500.4050 ####[facility] [address] [place], [address] Nucleated RBC (Bld) [#/Vol] 0 10*3/uL Normal 0-5 [facility] Comment on above: Performed By: #### L 100.0100, L500.4050 ####[facility] [address] [place], [address] Platelet mean volume (Bld) [Entitic vol] 13.4 fL High 6.2-12.0 [facility] Comment on above: Performed By: #### L 100.0100, L500.4050 ####[facility] [address] [place], [address] Platelets (Bld) [#/Vol] 183 10*3/uL Normal 150-450 [facility] Comment on above: Performed By: #### L 100.0100, L500.4050 ####[facility] [address] [place], [address] RBC (Bld) [#/Vol] 2.85 10*6/uL Low 4.2-5.4 [facility] Comment on above: Performed By: #### L 100.0100, L500.4050 ####[facility] [address] [place], [address] RDW SD 57.7 fl High 35.1-43.9 [facility] Comment on above: Performed By: #### L 100.0100, L500.4050 ####[facility] [address] [place], [address] WBC (Bld) [#/Vol] 6.6 10*3/uL Normal 4.4-11.0 [facility] Comment on above: Performed By: #### L 100.0100, L500.4050 ####[facility] [address] [place], [address] Absolute Lymph 1.62 X10 3/uL Normal 0.83-4.51 [facility] Comment on above: Performed By: #### L 500.2500, L100.0100 ####[facility] [address] [place], [address] Absolute Neut 2.0 X10 3/uL Normal 2.0-7.7 [facility] Comment on above: Performed By: #### L 500.2500, L100.0100 ####[facility] [address] [place], [address] Basophils/100 WBC (Bld) 0.9 % Normal 0-1 [facility] Comment on above: Performed By: #### L 500.2500, L100.0100 ####[facility] [address] [place], [address] Eosinophils/100 WBC (Bld) 7.7 % High 0-5 [facility] Comment on above: Performed By: #### L 500.2500, L100.0100 ####[facility] [address] [place], [address] Erythrocyte distribution width (RBC) [Ratio] 14.2 % Normal 11.6-14.6 [facility] Comment on above: Performed By: #### L 500.2500, L100.0100 ####[facility] [address] [place], [address] Hematocrit (Bld) [Volume fraction] 26.9 % Low 37-47 [facility] Comment on above: Performed By: #### L 500.2500, L100.0100 ####[facility] [address] [place], [address] Hemoglobin (Bld) [Mass/Vol] 7.9 g/dL Low 12.0-15.0 [facility] Comment on above: Performed By: #### L 500.2500, L100.0100 ####[facility] [address] [place], [address] IG% 0.200 Normal 0.0-0.9 [facility] Comment on above: Result Comment: IG% - Immature Granulocytes (promyelocytes, myelocytes andmetamyelocytes) > 1% indicates that a LEFT SHIFT is Present. Performed By: #### L 500.2500, L100.0100 ####[facility] [address] [place], [address] Lymphocytes/100 WBC (Bld) 37.9 % Normal 19-41 [facility] Comment on above: Performed By: #### L 500.2500, L100.0100 ####[facility] [address] [place], [address] MCH (RBC) [Entitic mass] 32.0 pg Normal 27.0-32.0 [facility] Comment on above: Performed By: #### L 500.2500, L100.0100 ####[facility] [address] [place], [address] MCHC (RBC) [Mass/Vol] 29.4 g/dL Low 32-36 [facility] Comment on above: Performed By: #### L 500.2500, L100.0100 ####[facility] [address] [place], [address] MCV (RBC) [Entitic vol] 108.9 fL High 81-99 [facility] Comment on above: Performed By: #### L 500.2500, L100.0100 ####[facility] [address] [place], [address] Monocytes/100 WBC (Bld) 7.7 % Normal 0-10 [facility] Comment on above: Performed By: #### L 500.2500, L100.0100 ####[facility] [address] [place], [address] Neutrophils/100 WBC (Bld) 45.6 % Low 47-70 [facility] Comment on above: Performed By: #### L 500.2500, L100.0100 ####[facility] [address] [place], [address] Nucleated RBC (Bld) [#/Vol] 0 10*3/uL Normal 0-5 [facility] Comment on above: Performed By: #### L 500.2500, L100.0100 ####[facility] [address] [place], [address] Platelet mean volume (Bld) [Entitic vol] 13.2 fL High 6.2-12.0 [facility] Comment on above: Performed By: #### L 500.2500, L100.0100 ####[facility] [address] [place], [address] Platelets (Bld) [#/Vol] 153 10*3/uL Normal 150-450 [facility] Comment on above: Performed By: #### L 500.2500, L100.0100 ####[facility] [address] [place], [address] RBC (Bld) [#/Vol] 2.47 10*6/uL Low 4.2-5.4 [facility] Comment on above: Performed By: #### L 500.2500, L100.0100 ####[facility] [address] [place], [address] RDW SD 56.0 fl High 35.1-43.9 [facility] Comment on above: Performed By: #### L 500.2500, L100.0100 ####[facility] [address] [place], [address] WBC (Bld) [#/Vol] 4.3 10*3/uL Low 4.4-11.0 [facility] Comment on above: Performed By: #### L 500.2500, L100.0100 ####[facility] [address] [place], [address] Carbon dioxide, total [Moles /volume] in Central venous bloodOrdered By: Alexis Friend on 10-12-2024 CO2 [Moles/Vol] 22.8 mmol/L 21.0-32.0 [facility] Carbon dioxide, total [Moles /volume] in Central venous bloodOrdered By: Gautam Hardy on 10-12-2024 CO2 [Moles/Vol] 21.9 mmol/L 21.0-32.0 [facility] Chloride assayOrdered By: Simi Friend on 10-12-2024 Chloride [Moles/Vol] 111 mmol/L High 98-108 [facility] Chloride assayOrdered By: Fernando Hardy on 10-12-2024 Chloride [Moles/Vol] 110 mmol/L High 98-108 [facility] Comprehensive Metabolic Prof ilon 10-12-2024 Albumin [Mass/Vol] 3.1 g/dL Low 3.4-4.8 [facility] Comment on above: Performed By: #### L 100.0100, L500.4050 ####[facility] [address] [place], [address] Albumin/Globulin [Mass ratio] 1.1 {ratio} Normal 0.9-2.4 [facility] Comment on above: Performed By: #### L 100.0100, L500.4050 ####[facility] [address] [place], [address] ALK PHOS 134 U/L High 35-104 [facility] Comment on above: Performed By: #### L 100.0100, L500.4050 ####[facility] [address] [place], [address] ALT [Catalytic activity/Vol] 100 U/L High <=34 [facility] Comment on above: Performed By: #### L 100.0100, L500.4050 ####[facility] [address] [place], [address] AST [Catalytic activity/Vol] 66 U/L High <=31 [facility] Comment on above: Performed By: #### L 100.0100, L500.4050 ####[facility] [address] [place], [address] Bilirubin [Mass/Vol] 0.23 mg/dL Normal 0.00-1.30 [facility] Comment on above: Performed By: #### L 100.0100, L500.4050 ####[facility] [address] [place], [address] BUN/CRE 23.9 RATIO High 10-20 [facility] Comment on above: Performed By: #### L 100.0100, L500.4050 ####[facility] [address] [place], [address] Calcium [Mass/Vol] 8.3 mg/dL Normal 7.6-11.0 [facility] Comment on above: Performed By: #### L 100.0100, L500.4050 ####[facility] [address] [place], [address] Chloride [Moles/Vol] 111 mmol/L High 98-108 [facility] Comment on above: Performed By: #### L 100.0100, L500.4050 ####[facility] [address] [place], [address] CO2 [Moles/Vol] 22.8 mmol/L Normal 21.0-32.0 [facility] Comment on above: Performed By: #### L 100.0100, L500.4050 ####[facility] [address] [place], [address] Creatinine [Mass/Vol] 3.01 mg/dL High 0.70-1.20 [facility] Comment on above: Performed By: #### L 100.0100, L500.4050 ####[facility] [address] [place], [address] ECRCL 18.75 ml/min Low 50-250 [facility] Comment on above: Performed By: #### L 100.0100, L500.4050 ####[facility] [address] [place], [address] GAP 12 Normal 5-15 [facility] Comment on above: Performed By: #### L 100.0100, L500.4050 ####[facility] [address] [place], [address] GFR/1.73 sq M.predicted among non-blacks MDRD (S/P/Bld) [Vol rate/Area] 15 mL/min/{1.73_m2} Low >60 [facility] Comment on above: Result Comment: mL/m in/1.73m2 CKD-EPI Creatinine Equation (2020) Performed By: #### L 100.0100, L500.4050 ####[facility] [address] [place], [address] Globulin (S) [Mass/Vol] 2.7 g/dL Normal 2.2-4.2 [facility] Comment on above: Performed By: #### L 100.0100, L500.4050 ####[facility] [address] [place], [address] Glucose [Mass/Vol] 97 mg/dL Normal 70-99 [facility] Comment on above: Performed By: #### L 100.0100, L500.4050 ####[facility] [address] [place], [address] Potassium [Moles/Vol] 4.4 mmol/L Normal 3.3-5.1 [facility] Comment on above: Performed By: #### L 100.0100, L500.4050 ####[facility] [address] [place], [address] Sodium [Moles/Vol] 146 mmol/L High 133-145 [facility] Comment on above: Performed By: #### L 100.0100, L500.4050 ####[facility] [address] [place], [address] T PROT 5.8 g/dL Low 5.9-8.4 [facility] Comment on above: Performed By: #### L 100.0100, L500.4050 ####[facility] [address] [place], [address] Urea nitrogen [Mass/Vol] 72 mg/dL High 4-19 [facility] Comment on above: Performed By: #### L 100.0100, L500.4050 ####[facility] [address] [place], [address] Emergency Department Summary on 10-12-2024 Emergency Department Summary Normal [facility] Eosinophil percentageOrdered By: Alexis Friend on 10-12-2024 Eosinophils/100 WBC (Bld) 5.2 % High 0-5 [facility] Eosinophil percentageOrdered By: Gautam Antony on 10-12-2024 Eosinophils/100 WBC (Bld) 7.7 % High 0-5 [facility] Erythrocyte distribution wid th ratioOrdered By: Alexis Friend on 10-12-2024 Erythrocyte distribution width (RBC) [Ratio] 14.3 % 11.6-14.6 [facility] Erythrocyte distribution wid th ratioOrdered By: Gautam Antony on 10-12-2024 Erythrocyte distribution width (RBC) [Ratio] 14.2 % 11.6-14.6 [facility] Erythrocyte distribution wid th standard deviationOrdered By: Alexis Friend on 10-12-2024 Erythrocyte distribution width (RBC) [Ratio] 57.7 fl High 35.1-43.9 [facility] Erythrocyte distribution wid th standard deviationOrdered By: Gautam Hardy on 10-12-2024 Erythrocyte distribution width (RBC) [Ratio] 56.0 fl High 35.1-43.9 [facility] Glomerular filtration rate ( GFR) estimation/1.73 sq m using serum, plasma, or whole bOrdered By: Alexis Friend on 10-12-2024 GFR/1.73 sq M.predicted among non-blacks MDRD (S/P/Bld) [Vol rate/Area] 15 mL/min/{1.73_m2} Low >60 [facility] Glomerular filtration rate ( GFR) estimation/1.73 sq m using serum, plasma, or whole bOrdered By: Gautam Hardy on 10-12-2024 GFR/1.73 sq M.predicted among non-blacks MDRD (S/P/Bld) [Vol rate/Area] 16 mL/min/{1.73_m2} Low >60 [facility] Hematocrit Auto (Bld) [Volum e fraction]Ordered By: Alexis Friend on 10-12-2024 Hematocrit (Bld) [Volume fraction] 31.0 % Low 37-47 [facility] Hematocrit Auto (Bld) [Volum e fraction]Ordered By: Gautam Hardy on 10-12-2024 Hematocrit (Bld) [Volume fraction] 26.9 % Low 37-47 [facility] Hemoglobin measurementOrdere d By: Alexis Friend on 10-12-2024 Hemoglobin (Bld) [Mass/Vol] 9.1 g/dL Low 12.0-15.0 [facility] Hemoglobin measurementOrdere d By: Gautam Hardy on 10-12-2024 Hemoglobin (Bld) [Mass/Vol] 7.9 g/dL Low 12.0-15.0 [facility] Immature granulocytes/100 WB C Auto (Bld)Ordered By: Alexis Friend on 10-12-2024 Immature granulocytes/100 WBC (Bld) 0.800 % 0.0-0.9 [facility] Immature granulocytes/100 WB C Auto (Bld)Ordered By: Gautam Hardy on 10-12-2024 Immature granulocytes/100 WBC (Bld) 0.200 % 0.0-0.9 [facility] MCV (mean corpuscular volume ) determinationOrdered By: Alexis Friend on 10-12-2024 MCV (RBC) [Entitic vol] 108.8 fL High 81-99 [facility] MCV (mean corpuscular volume ) determinationOrdered By: Gautam Antony on 10-12-2024 MCV (RBC) [Entitic vol] 108.9 fL High 81-99 [facility] Mean corpuscular hemoglobin (MCH) determinationOrdered By: Alexis Friend on 10-12-2024 MCH (RBC) [Entitic mass] 31.9 pg 27.0-32.0 [facility] Mean corpuscular hemoglobin (MCH) determinationOrdered By: Gautam Antony on 10-12-2024 MCH (RBC) [Entitic mass] 32.0 pg 27.0-32.0 [facility] Monocyte percentageOrdered B y: Alexis Friend on 10-12-2024 Monocytes/100 WBC (Bld) 5.3 % 0-10 [facility] Monocyte percentageOrdered B y: Gautam Antony on 10-12-2024 Monocytes/100 WBC (Bld) 7.7 % 0-10 [facility] Neutrophil percentageOrdered By: Alexis Friend on 10-12-2024 Neutrophils/100 WBC (Bld) 69.2 % 47-70 [facility] Neutrophil percentageOrdered By: Gautam Antony on 10-12-2024 Neutrophils/100 WBC (Bld) 45.6 % Low 47-70 [facility] No Panel InformationOrdered By: Alexis Friend on 10-12-2024 66 U/L High <32 [facility] Platelet countOrdered By: Ug o Friend on 10-12-2024 Platelets (Bld) [#/Vol] 183 10*3/uL 150-450 [facility] Platelet countOrdered By: Fernando Hardy on 10-12-2024 Platelets (Bld) [#/Vol] 153 10*3/uL 150-450 [facility] Potassium measurement (mass/ volume)Ordered By: Alexis Friend on 10-12-2024 Potassium (Unsp spec) [Mass/Vol] 4.4 mmol/L 3.3-5.1 [facility] Potassium measurement (mass/ volume)Ordered By: Gautam Hardy on 10-12-2024 Potassium (Unsp spec) [Mass/Vol] 4.3 mmol/L 3.3-5.1 [facility] RBC Auto (Bld) [#/Vol]Ordere d By: Alexis Friend on 10-12-2024 RBC (Bld) [#/Vol] 2.85 10*6/uL Low 4.2-5.4 [facility] RBC Auto (Bld) [#/Vol]Ordere d By: Gautam Hardy on 10-12-2024 RBC (Bld) [#/Vol] 2.47 10*6/uL Low 4.2-5.4 [facility] Serum creatinine measurement (mass/volume)Ordered By: Alexis Friend on 10-12-2024 Creatinine [Mass/Vol] 3.01 mg/dL High 0.70-1.20 [facility] Serum creatinine measurement (mass/volume)Ordered By: Gautam Hardy on 10-12-2024 Creatinine [Mass/Vol] 2.88 mg/dL High 0.70-1.20 [facility] Serum globulin measurementOr dered By: Alexis Friend on 10-12-2024 Globulin (S) [Mass/Vol] 2.7 g/dL 2.2-4.2 [facility] Serum glucose measurement (m ass/volume)Ordered By: Alexis Friend on 10-12-2024 Glucose [Mass/Vol] 97 mg/dL 70-99 [facility] Serum glucose measurement (m ass/volume)Ordered By: Gautam Hardy on 10-12-2024 Glucose [Mass/Vol] 84 mg/dL 70-99 [facility] Serum or plasma alanine huertas otransferase (ALT) measurementOrdered By: Alexis Friend on 10-12-2024 ALT [Catalytic activity/Vol] 100 U/L High <35 [facility] Serum or plasma albumin farheen urement (mass/volume)Ordered By: Alexis Friend on 10-12-2024 Albumin [Mass/Vol] 3.1 g/dL Low 3.4-4.8 [facility] Serum or plasma albumin/glob ulin mass ratioOrdered By: Alexis Friend on 10-12-2024 Albumin/Globulin [Mass ratio] 1.1 {ratio} 0.9-2.4 [facility] Serum or plasma alkaline mariya sphatase measurementOrdered By: Alexis Friend on 10-12-2024 ALP [Catalytic activity/Vol] 134 U/L High 35-104 [facility] Serum or plasma calcium farheen urement (mass/volume)Ordered By: Alexis Friend on 10-12-2024 Calcium [Mass/Vol] 8.3 mg/dL 7.6-11.0 [facility] Serum or plasma calcium farheen urement (mass/volume)Ordered By: Gautam Hardy on 10-12-2024 Calcium [Mass/Vol] 8.0 mg/dL 7.6-11.0 [facility] Serum or plasma urea nitroge n measurement (mass/volume)Ordered By: Alexis Friend on 10-12-2024 Urea nitrogen [Mass/Vol] 72 mg/dL High 4-19 [facility] Serum or plasma urea nitroge n measurement (mass/volume)Ordered By: Gautam Hardy on 10-12-2024 Urea nitrogen [Mass/Vol] 74 mg/dL High -19 [facility] Sodium levelOrdered By: Alexis Friend on 10-12-2024 Sodium [Moles/Vol] 146 mmol/L High 133-145 [facility] Sodium levelOrdered By: Gautam Hardy on 10-12-2024 Sodium [Moles/Vol] 144 mmol/L 133-145 [facility] Total proteinOrdered By: Alexis Friend on 10-12-2024 Protein [Mass/Vol] 5.8 g/dL Low 5.9-8.4 [facility] White blood cell (WBC) count Ordered By: Alexis Friend on 10-12-2024 WBC (Bld) [#/Vol] 6.6 10*3/uL 4.4-11.0 [facility] White blood cell (WBC) count Ordered By: Gautam Hardy on 10-12-2024 WBC (Bld) [#/Vol] 4.3 10*3/uL Low 4.4-11.0 [facility] Basic Metabolic Profile (BMP )on 10-11-2024 BUN/CRE 26.7 RATIO High 10-20 [facility] Comment on above: Performed By: #### L 500.2500 ####[facility] [address] [place], [address] Calcium [Mass/Vol] 7.9 mg/dL Normal 7.6-11.0 [facility] Comment on above: Performed By: #### L 500.2500 ####[facility] [address] [place], [address] Chloride [Moles/Vol] 111 mmol/L High 98-108 [facility] Comment on above: Performed By: #### L 500.2500 ####[facility] [address] [place], [address] CO2 [Moles/Vol] 22.3 mmol/L Normal 21.0-32.0 [facility] Comment on above: Performed By: #### L 500.2500 ####[facility] [address] [place], [address] Creatinine [Mass/Vol] 2.82 mg/dL High 0.70-1.20 [facility] Comment on above: Performed By: #### L 500.2500 ####[facility] [address] [place], [address] ECRCL 18.70 ml/min Low 50-250 [facility] Comment on above: Performed By: #### L 500.2500 ####[facility] [address] [place], [address] GAP 11 Normal 5-15 [facility] Comment on above: Performed By: #### L 500.2500 ####[facility] [address] [place], [address] GFR/1.73 sq M.predicted among non-blacks MDRD (S/P/Bld) [Vol rate/Area] 16 mL/min/{1.73_m2} Low >60 [facility] Comment on above: Result Comment: mL/m in/1.73m2 CKD-EPI Creatinine Equation (2020) Performed By: #### L 500.2500 ####[facility] [address] [place], [address] Glucose [Mass/Vol] 100 mg/dL High 70-99 [facility] Comment on above: Performed By: #### L 500.2500 ####[facility] [address] [place], [address] Potassium [Moles/Vol] 4.1 mmol/L Normal 3.3-5.1 [facility] Comment on above: Performed By: #### L 500.2500 ####[facility] [address] [place], [address] Sodium [Moles/Vol] 145 mmol/L Normal 133-145 [facility] Comment on above: Performed By: #### L 500.2500 ####[facility] [address] [place], [address] Urea nitrogen [Mass/Vol] 75 mg/dL High 4-19 [facility] Comment on above: Performed By: #### L 500.2500 ####[facility] [address] [place], [address] Venous Duplex US, Unilateral on 10-11-2024 Venous Duplex US, Unilateral Normal [facility] Venous duplex ultrasound rep ortOrdered By: Russell Gonzalez on 10-11-2024 US Vein [facility] Work Phone: Urine Cultureon 10-09-2024 URC Normal [facility] Comment on above: Performed By: #### M 100.2200 ####[facility] [address] [place], [address] Basic Metabolic Profile (BMP )on 10-08-2024 BUN/CRE 27.1 RATIO High 10-20 [facility] Comment on above: Performed By: #### L 500.2500 ####[facility] [address] [place], [address] Calcium [Mass/Vol] 7.9 mg/dL Normal 7.6-11.0 [facility] Comment on above: Performed By: #### L 500.2500 ####[facility] [address] [place], [address] Chloride [Moles/Vol] 107 mmol/L Normal 98-108 [facility] Comment on above: Performed By: #### L 500.2500 ####[facility] [address] [place], [address] CO2 [Moles/Vol] 23.5 mmol/L Normal 21.0-32.0 [facility] Comment on above: Performed By: #### L 500.2500 ####[facility] [address] [place], [address] Creatinine [Mass/Vol] 2.76 mg/dL High 0.70-1.20 [facility] Comment on above: Performed By: #### L 500.2500 ####[facility] [address] [place], [address] ECRCL 19.10 ml/min Low 50-250 [facility] Comment on above: Performed By: #### L 500.2500 ####[facility] [address] [place], [address] GAP 11 Normal 5-15 [facility] Comment on above: Performed By: #### L 500.2500 ####[facility] [address] [place], [address] GFR/1.73 sq M.predicted among non-blacks MDRD (S/P/Bld) [Vol rate/Area] 17 mL/min/{1.73_m2} Low >60 [facility] Comment on above: Result Comment: mL/m in/1.73m2 CKD-EPI Creatinine Equation (2020) Performed By: #### L 500.2500 ####[facility] [address] [place], [address] Glucose [Mass/Vol] 85 mg/dL Normal 70-99 [facility] Comment on above: Performed By: #### L 500.2500 ####[facility] [address] [place], [address] Potassium [Moles/Vol] 5.0 mmol/L Normal 3.3-5.1 [facility] Comment on above: Result Comment: Hemo lysis present, Results??could be affected.?? Performed By: #### L 500.2500 ####[facility] [address] [place], [address] Sodium [Moles/Vol] 142 mmol/L Normal 133-145 [facility] Comment on above: Performed By: #### L 500.2500 ####[facility] [address] [place], [address] Urea nitrogen [Mass/Vol] 75 mg/dL High 4-19 [facility] Comment on above: Performed By: #### L 500.2500 ####[facility] [address] [place], [address] Urinalysis, Completeon 10-07 BACTERIA 1+ /hpf Normal None Seen [facility] Comment on above: Order Comment: BLADD ER TAP Performed By: #### L 400.0001 ####[facility] [address] [place], [address] RBC 0-5 SEEN Normal 0-5 [facility] Comment on above: Order Comment: BLADD ER TAP Performed By: #### L 400.0001 ####[facility] [address] [place], [address] EPI,SQUAMOUS 0-5 SEEN Normal 5-10 [facility] Comment on above: Order Comment: BLADD ER TAP Performed By: #### L 400.0001 ####[facility] [address] [place], [place], [id number] WBC 10-25 SEEN Normal 0-5 [facility] Comment on above: Order Comment: BLADD ER TAP Performed By: #### L 400.0001 ####[facility] [address] [place], [place], [id number] Bilirubin Test strip Ql (U)O rdered By: Gautam Hardy on 10-06-2024 Bilirubin Ql (U) Negative Negative [facility] Ketones Test strip Ql (U)Ord ered By: Gautam Hardy on 10-06-2024 Ketones Ql (U) Negative Negative [facility] Mucus LM Ql (Urine sed)Order ed By: Gautam Hardy on 10-06-2024 Mucus Ql (Urine sed) 0 SEEN /hpf [facility] Nitrite Test strip Ql (U)Ord ered By: Gatuam Hardy on 10-06-2024 Nitrite Ql (U) Negative Negative [facility] Protein Test strip Ql (U)Ord ered By: Gautam Hardy on 10-06-2024 Protein Ql (U) 30 mg/dl High Negative [facility] Squamous epithelial cells de tection in urine sediment by light microscopyOrdered By: Gautam Hardy on 10-06-2024 Epithelial cells.squamous LM Ql (Urine sed) 0-5 SEEN /hpf 5-10 [facility] Urinalysis, Completeon 10-06 Mucus Ql (Urine sed) 0 SEEN Normal [facility] Comment on above: Order Comment: BLADD ER TAP Performed By: #### L 400.0001 ####[facility] [address] [place], [address] Urine clarityOrdered By: Gautam Hardy on 10-06-2024 Clarity (U) Clear Clear [facility] Urine color determinationOrd ered By: Gautam Hardy on 10-06-2024 Color (U) Yellow Yellow [facility] Urine cultureOrdered By: Gautam Hardy on 10-06-2024 Bacteria identified Cx Nom (U) Vancomycin Resist. E. faecalis Abnormal [facility] Urine glucose detectionOrder ed By: Gautam Hardy on 10-06-2024 Glucose Ql (U) Normal mg/dl Normal [facility] Urine leukocyte esterase det ection by dipstickOrdered By: Gautam Hardy on 10-06-2024 Leukocyte esterase Test strip Ql (U) 25 /ul High Negative [facility] Urine pHOrdered By: Gautam Hardy on 10-06-2024 pH (U) 6.0 [pH] 5.0 - 8.0 [facility] Urine sediment bacteria coun t by microscopy (number/high power field)Ordered By: Gautam Hardy on 10-06-2024 Bacteria LM.HPF (Urine sed) [#/Area] 1 /[HPF] None Seen [facility] Urine specific gravity measu rementOrdered By: Gautam Hardy on 10-06-2024 Specific gravity (U) [Rel density] 1.015 1.002-1.03 0 [facility] Urine urobilinogen measureme ntOrdered By: Gautam Hardy on 10-06-2024 Urobilinogen Ql (U) Normal mg/dl Normal [facility] White blood cell countOrdere d By: Gautam Hardy on 10-06-2024 White blood cell count 10-25 SEEN /hpf 0-5 [facility] Basic Metabolic Profile (BMP )on 10-05-2024 BUN/CRE 25.7 RATIO High 10-20 [facility] Comment on above: Performed By: #### L 100.0100, L500.2500 ####[facility] [address] [place], [address] Calcium [Mass/Vol] 8.1 mg/dL Normal 7.6-11.0 [facility] Comment on above: Performed By: #### L 100.0100, L500.2500 ####[facility] [address] [place], [address] Chloride [Moles/Vol] 105 mmol/L Normal 98-108 [facility] Comment on above: Performed By: #### L 100.0100, L500.2500 ####[facility] [address] [place], [address] CO2 [Moles/Vol] 25.1 mmol/L Normal 21.0-32.0 [facility] Comment on above: Performed By: #### L 100.0100, L500.2500 ####[facility] [address] [place], [address] Creatinine [Mass/Vol] 2.96 mg/dL High 0.70-1.20 [facility] Comment on above: Performed By: #### L 100.0100, L500.2500 ####[facility] [address] [place], [address] ECRCL 17.81 ml/min Low 50-250 [facility] Comment on above: Performed By: #### L 100.0100, L500.2500 ####[facility] [address] [place], [address] GAP 11 Normal 5-15 [facility] Comment on above: Performed By: #### L 100.0100, L500.2500 ####[facility] [address] [place], [address] GFR/1.73 sq M.predicted among non-blacks MDRD (S/P/Bld) [Vol rate/Area] 15 mL/min/{1.73_m2} Low >60 [facility] Comment on above: Result Comment: mL/m in/1.73m2 CKD-EPI Creatinine Equation (2020) Performed By: #### L 100.0100, L500.2500 ####[facility] [address] [place], [address] Glucose [Mass/Vol] 89 mg/dL Normal 70-99 [facility] Comment on above: Performed By: #### L 100.0100, L500.2500 ####[facility] [address] [place], [address] Potassium [Moles/Vol] 4.7 mmol/L Normal 3.3-5.1 [facility] Comment on above: Performed By: #### L 100.0100, L500.2500 ####[facility] [address] [place], [address] Sodium [Moles/Vol] 141 mmol/L Normal 133-145 [facility] Comment on above: Performed By: #### L 100.0100, L500.2500 ####[facility] [address] [place], [address] Urea nitrogen [Mass/Vol] 76 mg/dL High 4-19 [facility] Comment on above: Performed By: #### L 100.0100, L500.2500 ####[facility] [address] [place], [address] CBC W/Diff, Automatedon 07-0 2-2025 Absolute Lymph 1.82 X10 3/uL Normal 0.83-4.51 [facility] Comment on above: Performed By: #### L 100.0100, L500.2500 ####[facility] [address] [place], [address] Absolute Neut 4.2 X10 3/uL Normal 2.0-7.7 [facility] Comment on above: Performed By: #### L 100.0100, L500.2500 ####[facility] [address] [place], [address] Basophils/100 WBC (Bld) 0.6 % Normal 0-1 [facility] Comment on above: Performed By: #### L 100.0100, L500.2500 ####[facility] [address] [place], [address] Eosinophils/100 WBC (Bld) 5.0 % Normal 0-5 [facility] Comment on above: Performed By: #### L 100.0100, L500.2500 ####[facility] [address] [place], [address] Erythrocyte distribution width (RBC) [Ratio] 14.7 % High 11.6-14.6 [facility] Comment on above: Performed By: #### L 100.0100, L500.2500 ####[facility] [address] [place], [address] Hematocrit (Bld) [Volume fraction] 28.9 % Low 37-47 [facility] Comment on above: Performed By: #### L 100.0100, L500.2500 ####[facility] [address] [place], [address] Hemoglobin (Bld) [Mass/Vol] 8.9 g/dL Low 12.0-15.0 [facility] Comment on above: Performed By: #### L 100.0100, L500.2500 ####[facility] [address] [place], [address] IG% 0.400 Normal 0.0-0.9 [facility] Comment on above: Result Comment: IG% - Immature Granulocytes (promyelocytes, myelocytes andmetamyelocytes) > 1% indicates that a LEFT SHIFT is Present. Performed By: #### L 100.0100, L500.2500 ####[facility] [address] [place], [address] Lymphocytes/100 WBC (Bld) 25.9 % Normal 19-41 [facility] Comment on above: Performed By: #### L 100.0100, L500.2500 ####[facility] [address] [place], [address] MCH (RBC) [Entitic mass] 32.1 pg High 27.0-32.0 [facility] Comment on above: Performed By: #### L 100.0100, L500.2500 ####[facility] [address] [place], [address] MCHC (RBC) [Mass/Vol] 30.8 g/dL Low 32-36 [facility] Comment on above: Performed By: #### L 100.0100, L500.2500 ####[facility] [address] [place], [address] MCV (RBC) [Entitic vol] 104.3 fL High 81-99 [facility] Comment on above: Performed By: #### L 100.0100, L500.2500 ####[facility] [address] [place], [address] Monocytes/100 WBC (Bld) 7.7 % Normal 0-10 [facility] Comment on above: Performed By: #### L 100.0100, L500.2500 ####[facility] [address] [place], [address] Neutrophils/100 WBC (Bld) 60.4 % Normal 47-70 [facility] Comment on above: Performed By: #### L 100.0100, L500.2500 ####[facility] [address] [place], [address] Nucleated RBC (Bld) [#/Vol] 0 10*3/uL Normal 0-5 [facility] Comment on above: Performed By: #### L 100.0100, L500.2500 ####[facility] [address] [place], [address] Platelet mean volume (Bld) [Entitic vol] 13.3 fL High 6.2-12.0 [facility] Comment on above: Performed By: #### L 100.0100, L500.2500 ####[facility] [address] [place], [address] Platelets (Bld) [#/Vol] 179 10*3/uL Normal 150-450 [facility] Comment on above: Performed By: #### L 100.0100, L500.2500 ####[facility] [address] [place], [address] RBC (Bld) [#/Vol] 2.77 10*6/uL Low 4.2-5.4 [facility] Comment on above: Performed By: #### L 100.0100, L500.2500 ####[facility] [address] [place], [address] RDW SD 56.3 fl High 35.1-43.9 [facility] Comment on above: Performed By: #### L 100.0100, L500.2500 ####[facility] [address] [place], [address] WBC (Bld) [#/Vol] 7.0 10*3/uL Normal 4.4-11.0 [facility] Comment on above: Performed By: #### L 100.0100, L500.2500 ####[facility] [address] [place], [address] Anion gap in Serum or Plasma Ordered By: Alex Acosta on 10-04-2024 Anion gap [Moles/Vol] 12 mmol/L 5-15 [facility] BUN/creatinine ratioOrdered By: Alex Acosta on 10-04-2024 Urea nitrogen/Creatinine [Mass ratio] 26.4 mg/mg High -20 [facility] Basic Metabolic Profile (BMP )on 10-04-2024 BUN/CRE 26.[address] Comment on above: Performed By: #### L 500.2500 ####[facility] [address] [place], [address] ECRCL 18.83 ml/min Low 50-250 [facility] Comment on above: Performed By: #### L 500.2500 ####[facility] [address] [place], [address] GAP 12 Normal -[address] [place] [address] Comment on above: Performed By: #### L 500.2500 ####[facility] [address] [place], [place], [address] Potassium [Moles/Vol] 4.5 mmol/L Normal 3.3-5.1 [facility] Comment on above: Performed By: #### L 500.2500 ####[facility] [address] [place], [place], [address] Carbon dioxide, total [Moles /volume] in Central venous bloodOrdered By: Alex Acosta on 10-04-2024 CO2 [Moles/Vol] 23.9 mmol/L Normal 21.0-32.0 [facility] Comment on above: Performed By: #### L 500.2500 ####[facility] [address] [place], [place], [id number] Chloride assayOrdered By: Gumaro Acosta on 10-04-2024 Chloride [Moles/Vol] 103 mmol/L Normal 98-108 [facility] Comment on above: Performed By: #### L 500.2500 ####[facility] [address] [place], [place], [address] Glomerular filtration rate ( GFR) estimation/1.73 sq m using serum, plasma, or whole bOrdered By: Alex Acosta on 10-04-2024 GFR/1.73 sq M.predicted among non-blacks MDRD (S/P/Bld) [Vol rate/Area] 16 mL/min/{1.73_m2} Low >60 [facility] Comment on above: Result Comment: mL/m in/1.73m2 CKD-EPI Creatinine Equation (2020) Performed By: #### L 500.2500 ####[facility] [address] [place], [place], [address] Potassium measurement (mass/ volume)Ordered By: Alex Acosta on 10-04-2024 Potassium (Unsp spec) [Mass/Vol] 4.5 mmol/L 3.3-5.1 [facility] Serum creatinine measurement (mass/volume)Ordered By: Alex Acosta on 10-04-2024 Creatinine [Mass/Vol] 2.85 mg/dL High 0.70-1.20 [facility] Comment on above: Performed By: #### L 500.2500 ####[facility] [address] [place], [address] Serum glucose measurement (m ass/volume)Ordered By: Alex Acosta on 10-04-2024 Glucose [Mass/Vol] 86 mg/dL Normal 70-99 [facility] Comment on above: Performed By: #### L 500.2500 ####[facility] [address] [place], [address] Serum or plasma calcium farheen urement (mass/volume)Ordered By: Alex Acosta on 10-04-2024 Calcium [Mass/Vol] 7.8 mg/dL Normal 7.6-11.0 [facility] Comment on above: Performed By: #### L 500.2500 ####[facility] [address] [place], [address] Serum or plasma urea nitroge n measurement (mass/volume)Ordered By: Alex Acosta on 10-04-2024 Urea nitrogen [Mass/Vol] 75 mg/dL High 4-19 [facility] Comment on above: Performed By: #### L 500.2500 ####[facility] [address] [place], [address] Sodium levelOrdered By: Mari Acosta on 10-04-2024 Sodium [Moles/Vol] 139 mmol/L Normal 133-145 [facility] Comment on above: Performed By: #### L 500.2500 ####[facility] [address] [place], [address] Absolute lymphocyte countOrd ered By: Alex Acosta on 10-03-2024 Lymphocytes Auto (Unsp spec) [#/Vol] 2.13 10*3/uL 0.83-4.51 [facility] Anion gap in Serum or Plasma Ordered By: Alex Acosta on 10-03-2024 Anion gap [Moles/Vol] 11 mmol/L 5-15 [facility] Automated lymphocyte count a s percentage of total leukocytesOrdered By: Alex Acosta on 10-03-2024 Lymphocytes/100 WBC Auto (Unsp spec) 32.3 % 19-41 [facility] BUN/creatinine ratioOrdered By: Alex Acosta on 10-03-2024 Urea nitrogen/Creatinine [Mass ratio] 27.3 mg/mg High 01-23 [facility] Basic Metabolic Profile (BMP )on 10-03-2024 BUN/CRE 27.3 RATIO High 01-23 [facility] Comment on above: Performed By: #### L 100.0100, L500.2500 ####[facility] [address] [place], [address] Calcium [Mass/Vol] 7.6 mg/dL Normal 7.6-11.0 [facility] Comment on above: Performed By: #### L 100.0100, L500.2500 ####[facility] [address] [place], [address] Chloride [Moles/Vol] 104 mmol/L Normal 98-108 [facility] Comment on above: Performed By: #### L 100.0100, L500.2500 ####[facility] [address] [place], [address] CO2 [Moles/Vol] 24.9 mmol/L Normal 21.0-32.0 [facility] Comment on above: Performed By: #### L 100.0100, L500.2500 ####[facility] [address] [place], [address] Creatinine [Mass/Vol] 2.84 mg/dL High 0.70-1.20 [facility] Comment on above: Performed By: #### L 100.0100, L500.2500 ####[facility] [address] [place], [address] ECRCL 18.66 ml/min Low 50-250 [facility] Comment on above: Performed By: #### L 100.0100, L500.2500 ####[facility] [address] [place], [address] GAP 11 Normal 5-15 [facility] Comment on above: Performed By: #### L 100.0100, L500.2500 ####[facility] [address] [place], [address] GFR/1.73 sq M.predicted among non-blacks MDRD (S/P/Bld) [Vol rate/Area] 16 mL/min/{1.73_m2} Low >60 [facility] Comment on above: Result Comment: mL/m in/1.73m2 CKD-EPI Creatinine Equation (2020) Performed By: #### L 100.0100, L500.2500 ####[facility] [address] [place], [address] Glucose [Mass/Vol] 102 mg/dL High 70-99 [facility] Comment on above: Performed By: #### L 100.0100, L500.2500 ####[facility] [address] [place], [address] Potassium [Moles/Vol] 4.3 mmol/L Normal 3.3-5.1 [facility] Comment on above: Performed By: #### L 100.0100, L500.2500 ####[facility] [address] [place], [address] Sodium [Moles/Vol] 140 mmol/L Normal 133-145 [facility] Comment on above: Performed By: #### L 100.0100, L500.2500 ####[facility] [address] [place], [address] Urea nitrogen [Mass/Vol] 78 mg/dL High 4-19 [facility] Comment on above: Performed By: #### L 100.0100, L500.2500 ####[facility] [address] [place], [address] Basophil percentageOrdered B y: Alex Acosta on 10-03-2024 Basophils/100 WBC (Bld) 0.6 % 0-1 [facility] CBC W/Diff, Automatedon 09-06-2024 Absolute Lymph 2.13 X10 3/uL Normal 0.83-4.51 [facility] Comment on above: Performed By: #### L 100.0100, L500.2500 ####[facility] [address] [place], [address] Absolute Neut 3.4 X10 3/uL Normal 2.0-7.7 [facility] Comment on above: Performed By: #### L 100.0100, L500.2500 ####[facility] [address] [place], [address] Basophils/100 WBC (Bld) 0.6 % Normal 0-1 [facility] Comment on above: Performed By: #### L 100.0100, L500.2500 ####[facility] [address] [place], [address] Eosinophils/100 WBC (Bld) 6.2 % High 0-5 [facility] Comment on above: Performed By: #### L 100.0100, L500.2500 ####[facility] [address] [place], [address] Erythrocyte distribution width (RBC) [Ratio] 15.1 % High 11.6-14.6 [facility] Comment on above: Performed By: #### L 100.0100, L500.2500 ####[facility] [address] [place], [address] Hematocrit (Bld) [Volume fraction] 28.5 % Low 37-47 [facility] Comment on above: Performed By: #### L 100.0100, L500.2500 ####[facility] [address] [place], [address] Hemoglobin (Bld) [Mass/Vol] 9.0 g/dL Low 12.0-15.0 [facility] Comment on above: Performed By: #### L 100.0100, L500.2500 ####[facility] [address] [place], [address] IG% 0.300 Normal 0.0-0.9 [facility] Comment on above: Result Comment: IG% - Immature Granulocytes (promyelocytes, myelocytes andmetamyelocytes) > 1% indicates that a LEFT SHIFT is Present. Performed By: #### L 100.0100, L500.2500 ####[facility] [address] [place], [address] Lymphocytes/100 WBC (Bld) 32.3 % Normal 19-41 [facility] Comment on above: Performed By: #### L 100.0100, L500.2500 ####[facility] [address] [place], [address] MCH (RBC) [Entitic mass] 32.5 pg High 27.0-32.0 [facility] Comment on above: Performed By: #### L 100.0100, L500.2500 ####[facility] [address] [place], [address] MCHC (RBC) [Mass/Vol] 31.6 g/dL Low 32-36 [facility] Comment on above: Performed By: #### L 100.0100, L500.2500 ####[facility] [address] [place], [address] MCV (RBC) [Entitic vol] 102.9 fL High 81-99 [facility] Comment on above: Performed By: #### L 100.0100, L500.2500 ####[facility] [address] [place], [address] Monocytes/100 WBC (Bld) 8.8 % Normal 0-10 [facility] Comment on above: Performed By: #### L 100.0100, L500.2500 ####[facility] [address] [place], [address] Neutrophils/100 WBC (Bld) 51.8 % Normal 47-70 [facility] Comment on above: Performed By: #### L 100.0100, L500.2500 ####[facility] [address] [place], [address] Nucleated RBC (Bld) [#/Vol] 0 10*3/uL Normal 0-5 [facility] Comment on above: Performed By: #### L 100.0100, L500.2500 ####[facility] [address] [place], [address] Platelet mean volume (Bld) [Entitic vol] 13.8 fL High 6.2-12.0 [facility] Comment on above: Performed By: #### L 100.0100, L500.2500 ####[facility] [address] [place], [address] Platelets (Bld) [#/Vol] 195 10*3/uL Normal 150-450 [facility] Comment on above: Performed By: #### L 100.0100, L500.2500 ####[facility] [address] [place], [address] RBC (Bld) [#/Vol] 2.77 10*6/uL Low 4.2-5.4 [facility] Comment on above: Performed By: #### L 100.0100, L500.2500 ####[facility] [address] [place], [address] RDW SD 56.8 fl High 35.1-43.9 [facility] Comment on above: Performed By: #### L 100.0100, L500.2500 ####[facility] [address] [place], [address] WBC (Bld) [#/Vol] 6.6 10*3/uL Normal 4.4-11.0 [facility] Comment on above: Performed By: #### L 100.0100, L500.2500 ####[facility] [address] [place], [address] Carbon dioxide, total [Moles /volume] in Central venous bloodOrdered By: Alex Acosta on 10-03-2024 CO2 [Moles/Vol] 24.9 mmol/L 21.0-32.0 [facility] Chloride assayOrdered By: Gumaro Acosta on 10-03-2024 Chloride [Moles/Vol] 104 mmol/L 98-108 [facility] Eosinophil percentageOrdered By: Alex Acosta on 10-03-2024 Eosinophils/100 WBC (Bld) 6.2 % High 0-5 [facility] Erythrocyte distribution wid th ratioOrdered By: Alex Acosta on 10-03-2024 Erythrocyte distribution width (RBC) [Ratio] 15.1 % High 11.6-14.6 [facility] Erythrocyte distribution wid th standard deviationOrdered By: Alex Acosta on 10-03-2024 Erythrocyte distribution width (RBC) [Ratio] 56.8 fl High 35.1-43.9 [facility] Glomerular filtration rate ( GFR) estimation/1.73 sq m using serum, plasma, or whole bOrdered By: Alex Acosta on 10-03-2024 GFR/1.73 sq M.predicted among non-blacks MDRD (S/P/Bld) [Vol rate/Area] 16 mL/min/{1.73_m2} Low >60 [facility] Hematocrit Auto (Bld) [Volum e fraction]Ordered By: Alex Acosta on 10-03-2024 Hematocrit (Bld) [Volume fraction] 28.5 % Low 37-47 [facility] Hemoglobin measurementOrdere d By: Alex Acosta on 10-03-2024 Hemoglobin (Bld) [Mass/Vol] 9.0 g/dL Low 12.0-15.0 [facility] Immature granulocytes/100 WB C Auto (Bld)Ordered By: Alex Acosta on 10-03-2024 Immature granulocytes/100 WBC (Bld) 0.300 % 0.0-0.9 [facility] MCV (mean corpuscular volume ) determinationOrdered By: Alex Acosta on 10-03-2024 MCV (RBC) [Entitic vol] 102.9 fL High 81-99 [facility] Mean corpuscular hemoglobin (MCH) determinationOrdered By: Alex Acosta on 10-03-2024 MCH (RBC) [Entitic mass] 32.5 pg High 27.0-32.0 [facility] Monocyte percentageOrdered B y: Alex Acosta on 10-03-2024 Monocytes/100 WBC (Bld) 8.8 % 0-10 [facility] Neutrophil percentageOrdered By: Alex Acosta on 10-03-2024 Neutrophils/100 WBC (Bld) 51.8 % 47-70 [facility] Platelet countOrdered By: Gumaro Acosta on 10-03-2024 Platelets (Bld) [#/Vol] 195 10*3/uL 150-450 [facility] Potassium measurement (mass/ volume)Ordered By: Alex Acosta on 10-03-2024 Potassium (Unsp spec) [Mass/Vol] 4.3 mmol/L 3.3-5.1 [facility] RBC Auto (Bld) [#/Vol]Ordere d By: Alex Acosta on 10-03-2024 RBC (Bld) [#/Vol] 2.77 10*6/uL Low 4.2-5.4 [facility] Serum creatinine measurement (mass/volume)Ordered By: Alex Acosta on 10-03-2024 Creatinine [Mass/Vol] 2.84 mg/dL High 0.70-1.20 [facility] Serum glucose measurement (m ass/volume)Ordered By: Alex Acosta on 10-03-2024 Glucose [Mass/Vol] 102 mg/dL High 70-99 [facility] Serum or plasma calcium farheen urement (mass/volume)Ordered By: lAex Acosta on 10-03-2024 Calcium [Mass/Vol] 7.6 mg/dL 7.6-11.0 [facility] Serum or plasma urea nitroge n measurement (mass/volume)Ordered By: Alex Acosta on 10-03-2024 Urea nitrogen [Mass/Vol] 78 mg/dL High 4-19 [facility] Sodium levelOrdered By: Mari Acosta on 10-03-2024 Sodium [Moles/Vol] 140 mmol/L 133-145 [facility] Urine Cultureon 10-03-2024 URC Normal [facility] Comment on above: Performed By: #### M 100.2200 ####[facility] [address] [place], [address] White blood cell (WBC) count Ordered By: Alex Acosta on 10-03-2024 WBC (Bld) [#/Vol] 6.6 10*3/uL 4.4-11.0 [facility] Bilirubin, totalOrdered By: Alex Acosta on 10-02-2024 Bilirubin [Mass/Vol] 0.20 mg/dL 0.00-1.30 [facility] CBC W/Diff, Automatedon 09-05 Absolute Lymph 1.78 X10 3/uL Normal 0.83-4.51 [facility] Comment on above: Performed By: #### L 501.5200, L501.2300, L500.4050, L100.0100 ####[facility] [address] [place], [address] Absolute Neut 3.3 X10 3/uL Normal 2.0-7.7 [facility] Comment on above: Performed By: #### L 501.5200, L501.2300, L500.4050, L100.0100 ####[facility] [address] [place], [address] Basophils/100 WBC (Bld) 0.7 % Normal 0-1 [facility] Comment on above: Performed By: #### L 501.5200, L501.2300, L500.4050, L100.0100 ####[facility] [address] [place], [address] Eosinophils/100 WBC (Bld) 6.7 % High 0-5 [facility] Comment on above: Performed By: #### L 501.5200, L501.2300, L500.4050, L100.0100 ####[facility] [address] [place], [address] Erythrocyte distribution width (RBC) [Ratio] 15.5 % High 11.6-14.6 [facility] Comment on above: Performed By: #### L 501.5200, L501.2300, L500.4050, L100.0100 ####[facility] [address] [place], [address] Hematocrit (Bld) [Volume fraction] 31.4 % Low 37-47 [facility] Comment on above: Performed By: #### L 501.5200, L501.2300, L500.4050, L100.0100 ####[facility] [address] [place], [address] Hemoglobin (Bld) [Mass/Vol] 9.1 g/dL Low 12.0-15.0 [facility] Comment on above: Performed By: #### L 501.5200, L501.2300, L500.4050, L100.0100 ####[facility] [address] [place], [address] IG% 0.300 Normal 0.0-0.9 [facility] Comment on above: Result Comment: IG% - Immature Granulocytes (promyelocytes, myelocytes andmetamyelocytes) > 1% indicates that a LEFT SHIFT is Present. Performed By: #### L 501.5200, L501.2300, L500.4050, L100.0100 ####[facility] [address] [place], [address] Lymphocytes/100 WBC (Bld) 29.0 % Normal 19-41 [facility] Comment on above: Performed By: #### L 501.5200, L501.2300, L500.4050, L100.0100 ####[facility] [address] [place], [address] MCH (RBC) [Entitic mass] 32.0 pg Normal 27.0-32.0 [facility] Comment on above: Performed By: #### L 501.5200, L501.2300, L500.4050, L100.0100 ####[facility] [address] [place], [address] MCHC (RBC) [Mass/Vol] 29.0 g/dL Low 32-36 [facility] Comment on above: Performed By: #### L 501.5200, L501.2300, L500.4050, L100.0100 ####[facility] [address] [place], [address] MCV (RBC) [Entitic vol] 110.6 fL High 81-99 [facility] Comment on above: Performed By: #### L 501.5200, L501.2300, L500.4050, L100.0100 ####[facility] [address] [place], [address] Monocytes/100 WBC (Bld) 9.0 % Normal 0-10 [facility] Comment on above: Performed By: #### L 501.5200, L501.2300, L500.4050, L100.0100 ####[facility] [address] [place], [address] Neutrophils/100 WBC (Bld) 54.3 % Normal 47-70 [facility] Comment on above: Performed By: #### L 501.5200, L501.2300, L500.4050, L100.0100 ####[facility] [address] [place], [address] Nucleated RBC (Bld) [#/Vol] 0 10*3/uL Normal 0-5 [facility] Comment on above: Performed By: #### L 501.5200, L501.2300, L500.4050, L100.0100 ####[facility] [address] [place], [address] Platelet mean volume (Bld) [Entitic vol] 12.9 fL High 6.2-12.0 [facility] Comment on above: Performed By: #### L 501.5200, L501.2300, L500.4050, L100.0100 ####[facility] [address] [place], [address] Platelets (Bld) [#/Vol] 196 10*3/uL Normal 150-450 [facility] Comment on above: Performed By: #### L 501.5200, L501.2300, L500.4050, L100.0100 ####[facility] [address] [place], [address] RBC (Bld) [#/Vol] 2.84 10*6/uL Low 4.2-5.4 [facility] Comment on above: Performed By: #### L 501.5200, L501.2300, L500.4050, L100.0100 ####[facility] [address] [place], [address] RDW SD 63.0 fl High 35.1-43.9 [facility] Comment on above: Performed By: #### L 501.5200, L501.2300, L500.4050, L100.0100 ####[facility] [address] [place], [address] WBC (Bld) [#/Vol] 6.1 10*3/uL Normal 4.4-11.0 [facility] Comment on above: Performed By: #### L 501.5200, L501.2300, L500.4050, L100.0100 ####[facility] [address] [place], [address] Comprehensive Metabolic Prof njon 10-02-2024 Albumin [Mass/Vol] 2.3 g/dL Low 3.4-4.8 [facility] Comment on above: Performed By: #### L 501.5200, L501.2300, L500.4050, L100.0100 ####[facility] [address] [place], [address] Albumin/Globulin [Mass ratio] 0.9 {ratio} Normal 0.9-2.4 [facility] Comment on above: Performed By: #### L 501.5200, L501.2300, L500.4050, L100.0100 ####[facility] [address] [place], [address] ALK PHOS 121 U/L High 35-104 [facility] Comment on above: Performed By: #### L 501.5200, L501.2300, L500.4050, L100.0100 ####[facility] [address] [place], [address] ALT [Catalytic activity/Vol] 218 U/L High <=34 [facility] Comment on above: Performed By: #### L 501.5200, L501.2300, L500.4050, L100.0100 ####[facility] [address] [place], [address] AST [Catalytic activity/Vol] 71 U/L High <=31 [facility] Comment on above: Performed By: #### L 501.5200, L501.2300, L500.4050, L100.0100 ####[facility] [address] [place], [address] Bilirubin [Mass/Vol] 0.20 mg/dL Normal 0.00-1.30 [facility] Comment on above: Performed By: #### L 501.5200, L501.2300, L500.4050, L100.0100 ####[facility] [address] [place], [address] BUN/CRE 27.5 RATIO High 10-20 [facility] Comment on above: Performed By: #### L 501.5200, L501.2300, L500.4050, L100.0100 ####[facility] [address] [place], [address] Calcium [Mass/Vol] 7.7 mg/dL Normal 7.6-11.0 [facility] Comment on above: Performed By: #### L 501.5200, L501.2300, L500.4050, L100.0100 ####[facility] [address] [place], [address] Chloride [Moles/Vol] 107 mmol/L Normal 98-108 [facility] Comment on above: Performed By: #### L 501.5200, L501.2300, L500.4050, L100.0100 ####[facility] [address] [place], [address] CO2 [Moles/Vol] 15.7 mmol/L Low 21.0-32.0 [facility] Comment on above: Performed By: #### L 501.5200, L501.2300, L500.4050, L100.0100 ####[facility] [address] [place], [address] Creatinine [Mass/Vol] 2.95 mg/dL High 0.70-1.20 [facility] Comment on above: Performed By: #### L 501.5200, L501.2300, L500.4050, L100.0100 ####[facility] [address] [place], [address] ECRCL 17.83 ml/min Low 50-250 [facility] Comment on above: Performed By: #### L 501.5200, L501.2300, L500.4050, L100.0100 ####[facility] [address] [place], [address] GAP 14 Normal 5-15 [facility] Comment on above: Performed By: #### L 501.5200, L501.2300, L500.4050, L100.0100 ####[facility] [address] [place], [address] GFR/1.73 sq M.predicted among non-blacks MDRD (S/P/Bld) [Vol rate/Area] 15 mL/min/{1.73_m2} Low >60 [facility] Comment on above: Result Comment: mL/m in/1.73m2 CKD-EPI Creatinine Equation (2020) Performed By: #### L 501.5200, L501.2300, L500.4050, L100.0100 ####[facility] [address] [place], [address] Globulin (S) [Mass/Vol] 2.6 g/dL Normal 2.2-4.2 [facility] Comment on above: Performed By: #### L 501.5200, L501.2300, L500.4050, L100.0100 ####[facility] [address] [place], [address] Glucose [Mass/Vol] 101 mg/dL High 70-99 [facility] Comment on above: Performed By: #### L 501.5200, L501.2300, L500.4050, L100.0100 ####[facility] [address] [place], [address] Potassium [Moles/Vol] 4.6 mmol/L Normal 3.3-5.1 [facility] Comment on above: Performed By: #### L 501.5200, L501.2300, L500.4050, L100.0100 ####[facility] [address] [place], [address] Sodium [Moles/Vol] 137 mmol/L Normal 133-145 [facility] Comment on above: Performed By: #### L 501.5200, L501.2300, L500.4050, L100.0100 ####[facility] [address] [place], [address] T PROT 4.9 g/dL Low 5.9-8.4 [facility] Comment on above: Performed By: #### L 501.5200, L501.2300, L500.4050, L100.0100 ####[facility] [address] [place], [address] Urea nitrogen [Mass/Vol] 81 mg/dL High 4-19 [facility] Comment on above: Performed By: #### L 501.5200, L501.2300, L500.4050, L100.0100 ####[facility] [address] [place], [address] Magnesiumon 10-02-2024 Magnesium [Mass/Vol] 2.3 mg/dL High 1.5-2.2 [facility] Comment on above: Performed By: #### L 501.5200, L501.2300, L500.4050, L100.0100 ####[facility] [address] [place], [address] Magnesium measurement (mass/ volume)Ordered By: Alex Acosta on 10-02-2024 Magnesium (Unsp spec) [Mass/Vol] 2.3 mg/dL High 1.5-2.2 [facility] No Panel InformationOrdered By: Alex Acosta on 10-02-2024 71 U/L High <32 [facility] Phosphoruson 10-02-2024 Phosphate [Mass/Vol] 6.5 mg/dL High 2.7-4.5 [facility] Comment on above: Performed By: #### L 501.5200, L501.2300, L500.4050, L100.0100 ####[facility] [address] [place], [place], [id number] Serum globulin measurementOr dered By: Alex Acosta on 10-02-2024 Globulin (S) [Mass/Vol] 2.6 g/dL 2.2-4.2 [facility] Serum or plasma alanine huertas otransferase (ALT) measurementOrdered By: Alex Acosta on 10-02-2024 ALT [Catalytic activity/Vol] 218 U/L High <35 [facility] Serum or plasma albumin farheen urement (mass/volume)Ordered By: Alex Acosta on 10-02-2024 Albumin [Mass/Vol] 2.3 g/dL Low 3.4-4.8 [facility] Serum or plasma albumin/glob ulin mass ratioOrdered By: Alex Acosta on 10-02-2024 Albumin/Globulin [Mass ratio] 0.9 {ratio} 0.9-2.4 [facility] Serum or plasma alkaline mariya sphatase measurementOrdered By: Alex Acosta on 10-02-2024 ALP [Catalytic activity/Vol] 121 U/L High 35-104 [facility] Total proteinOrdered By: Kailey Acosta on 10-02-2024 Protein [Mass/Vol] 4.9 g/dL Low 5.9-8.4 [facility] Assessment of wrist artery p atency prior to arterial punctureOrdered By: Alex Acosta on 10-01-2024 Arterial patency Wrist artery --pre arterial puncture Positive [facility] Basic Metabolic Profile (BMP )on 10-01-2024 BUN/CRE 27.2 RATIO High 10-20 [facility] Comment on above: Performed By: #### L 500.2500 ####[facility] [address] [place], [address] Calcium [Mass/Vol] 7.9 mg/dL Normal 7.6-11.0 [facility] Comment on above: Performed By: #### L 500.2500 ####[facility] [address] [place], [address] Chloride [Moles/Vol] 111 mmol/L High 98-108 [facility] Comment on above: Performed By: #### L 500.2500 ####[facility] [address] [place], [address] CO2 [Moles/Vol] 15.5 mmol/L Low 21.0-32.0 [facility] Comment on above: Performed By: #### L 500.2500 ####[facility] [address] [place], [address] Creatinine [Mass/Vol] 3.11 mg/dL High 0.70-1.20 [facility] Comment on above: Performed By: #### L 500.2500 ####[facility] [address] [place], [address] ECRCL 16.66 ml/min Low 50-250 [facility] Comment on above: Performed By: #### L 500.2500 ####[facility] [address] [place], [address] GAP 14 Normal 5-15 [facility] Comment on above: Performed By: #### L 500.2500 ####[facility] [address] [place], [address] GFR/1.73 sq M.predicted among non-blacks MDRD (S/P/Bld) [Vol rate/Area] 14 mL/min/{1.73_m2} Low >60 [facility] Comment on above: Result Comment: mL/m in/1.73m2 CKD-EPI Creatinine Equation (2020) Performed By: #### L 500.2500 ####[facility] [address] [place], [address] Glucose [Mass/Vol] 104 mg/dL High 70-99 [facility] Comment on above: Performed By: #### L 500.2500 ####[facility] [address] [place], [address] Potassium [Moles/Vol] 5.0 mmol/L Normal 3.3-5.1 [facility] Comment on above: Performed By: #### L 500.2500 ####[facility] [address] [place], [address] Sodium [Moles/Vol] 140 mmol/L Normal 133-145 [facility] Comment on above: Performed By: #### L 500.2500 ####[facility] [address] [place], [address] Urea nitrogen [Mass/Vol] 85 mg/dL High 4-19 [facility] Comment on above: Performed By: #### L 500.2500 ####[facility] [address] [place], [address] BUN/CRE 26.8 RATIO High 10-20 [facility] Comment on above: Performed By: #### L 500.2500, L100.0100 ####[facility] [address] [place], [address] Calcium [Mass/Vol] 7.5 mg/dL Low 7.6-11.0 [facility] Comment on above: Performed By: #### L 500.2500, L100.0100 ####[facility] [address] [place], [address] Chloride [Moles/Vol] 115 mmol/L High 98-108 [facility] Comment on above: Performed By: #### L 500.2500, L100.0100 ####[facility] [address] [place], [address] CO2 [Moles/Vol] 12.9 mmol/L Low 21.0-32.0 [facility] Comment on above: Performed By: #### L 500.2500, L100.0100 ####[facility] [address] [place], [address] Creatinine [Mass/Vol] 3.19 mg/dL High 0.70-1.20 [facility] Comment on above: Performed By: #### L 500.2500, L100.0100 ####[facility] [address] [place], [address] ECRCL 16.24 ml/min Low 50-250 [facility] Comment on above: Performed By: #### L 500.2500, L100.0100 ####[facility] [address] [place], [address] GAP 12 Normal 5-15 [facility] Comment on above: Performed By: #### L 500.2500, L100.0100 ####[facility] [address] [place], [address] GFR/1.73 sq M.predicted among non-blacks MDRD (S/P/Bld) [Vol rate/Area] 14 mL/min/{1.73_m2} Low >60 [facility] Comment on above: Result Comment: mL/m in/1.73m2 CKD-EPI Creatinine Equation (2020) Performed By: #### L 500.2500, L100.0100 ####[facility] [address] [place], [address] Glucose [Mass/Vol] 98 mg/dL Normal 70-99 [facility] Comment on above: Performed By: #### L 500.2500, L100.0100 ####[facility] [address] [place], [address] Potassium [Moles/Vol] 5.3 mmol/L High 3.3-5.1 [facility] Comment on above: Result Comment: Hemo lysis present, Results??could be affected.?? Performed By: #### L 500.2500, L100.0100 ####[facility] [address] [place], [address] Sodium [Moles/Vol] 140 mmol/L Normal 133-145 [facility] Comment on above: Performed By: #### L 500.2500, L100.0100 ####[facility] [address] [place], [address] Urea nitrogen [Mass/Vol] 85 mg/dL High 4-19 [facility] Comment on above: Performed By: #### L 500.2500, L100.0100 ####[facility] [address] [place], [address] [facility] 025 ALMA DELIA TEST Positive Normal [facility] Comment on above: Performed By: #### L 9000.0800 ####[facility] [address] [place], [address] Base excess Calc (Bld) [Moles/Vol] -12 mmol/L Low -2 to +2 [facility] Comment on above: Performed By: #### L 9000.0800 ####[facility] [address] [place], [address] Blood Gas Type ART Normal [facility] Comment on above: Performed By: #### L 9000.0800 ####[facility] [address] [place], [address] CO2 [Moles/Vol] 17 mmol/L Normal [facility] Comment on above: Performed By: #### L 9000.0800 ####[facility] [address] [place], [address] FI02 21.0 Normal [facility] Comment on above: Performed By: #### L 9000.0800 ####[place] [facility] [address] [place], [address] HCO3 (Bld) [Moles/Vol] 15.7 mmol/L Low 22-26 [facility] Comment on above: Performed By: #### L 8999.08 ####[facility] [address] [place], [address] Mode Not entered Normal [facility] Comment on above: Performed By: #### L 8999.08 ####[facility] [address] [place], [address] O2 Delivery Dev Room Air Normal [facility] Comment on above: Performed By: #### L 8999.08 ####[facility] [address] [place], [address] pCO2 38.4 mmHg Normal 35-45 [facility] Comment on above: Performed By: #### L 8999.08 ####[facility] [address] [place], [address] pH (Bld) 7.22 [pH] Low 7.35-7.45 [facility] Comment on above: Performed By: #### L 8999.08 ####[facility] [address] [place], [address] PO2 80 mmHG Normal 75-100 [facility] Comment on above: Performed By: #### L 0.08 ####[facility] [address] [place], [address] SITE R Radial Normal [facility] Comment on above: Performed By: #### L 8999.0800 ####[facility] [address] [place], [address] SO2 93 Low 95-99 [facility] Comment on above: Performed By: #### L 0.0800 ####[facility] [address] [place], [address] Blood base excess determinat ionOrdered By: Alex Acosta on 10-01-2024 Base excess Calc (BldV) [Moles/Vol] -12 mmol/L Low -2-2 [facility] Blood bicarbonate measuremen tOrdered By: Alex Acosta on 10-01-2024 HCO3 (Bld) [Moles/Vol] 15.7 mmol/L Low 22-26 [facility] CBC W/Diff, Automatedon - Absolute Neut Normal 2.0-7.7 [facility] Comment on above: Result Comment: YVONNE ENT DISCHARGED Performed By: #### L 500.2500, L100.0100 ####[facility] [address] [place], [address] HCT Normal 37-47 [facility] Comment on above: Result Comment: YVONNE ENT DISCHARGED Performed By: #### L 500.2500, L100.0100 ####[facility] [address] [place], [address] HGB Normal 12.0-15.0 [facility] Comment on above: Result Comment: YVONNE ENT DISCHARGED Performed By: #### L 500.2500, L100.0100 ####[facility] [address] [place], [address] MCH Normal 27.0-32.0 [facility] Comment on above: Result Comment: YVONNE ENT DISCHARGED Performed By: #### L 500.2500, L100.0100 ####[facility] [address] [place], [address] MCHC Normal 32-36 [facility] Comment on above: Result Comment: YVONNE ENT DISCHARGED Performed By: #### L 500.2500, L100.0100 ####[facility] [address] [place], [address] MCV Normal 81-99 [facility] Comment on above: Result Comment: YVONNE ENT DISCHARGED Performed By: #### L 500.2500, L100.0100 ####[facility] [address] [place], [address] NEUT% Normal 47-70 [facility] Comment on above: Result Comment: YVONNE ENT DISCHARGED Performed By: #### L 500.2500, L100.0100 ####[facility] [address] [place], [address] PLT Normal 150-450 [facility] Comment on above: Result Comment: YVONNE ENT DISCHARGED Performed By: #### L 500.2500, L100.0100 ####[facility] [address] [place], [address] RBC Normal 4.2-5.4 [facility] Comment on above: Result Comment: YVONNE ENT DISCHARGED Performed By: #### L 500.2500, L100.0100 ####[facility] [address] [place], [address] RDW CV Normal 11.6-14.6 [facility] Comment on above: Result Comment: YVONNE ENT DISCHARGED Performed By: #### L 500.2500, L100.0100 ####[facility] [address] [place], [address] RDW SD Normal 35.1-43.9 [facility] Comment on above: Result Comment: YVONNE ENT DISCHARGED Performed By: #### L 500.2500, L100.0100 ####[facility] [address] [place], [address] WBC Normal 4.4-11.0 [facility] Comment on above: Result Comment: YVONNE ENT DISCHARGED Performed By: #### L 500.2500, L100.0100 ####[facility] [address] [place], [address] Measurement, pHOrdered By: Ashley Acosta on 10-01-2024 pH (Unsp spec) 7.22 [pH] Low 7.35-7.45 [facility] No Panel InformationOrdered By: Alxe Acosta on 10-01-2024 ART [facility] R Radial [facility] Not entered [facility] Room Air [facility] Total carbon dioxide measure mentOrdered By: Alex Acosta on 10-01-2024 CO2 [Moles/Vol] 17 mmol/L [facility] Urine Cultureon 10-01-2024 URC Normal [facility] Comment on above: Performed By: #### M 100.2200 ####[facility] [address] [place], [address] Basic Metabolic Profile (BMP )on 09-30-2024 BUN/CRE 27.1 RATIO High 10-20 [facility] Comment on above: Performed By: #### L 100.0100, L500.2500 ####[facility] [address] [place], [address] Calcium [Mass/Vol] 7.6 mg/dL Normal 7.6-11.0 [facility] Comment on above: Performed By: #### L 100.0100, L500.2500 ####[facility] [address] [place], [address] Chloride [Moles/Vol] 113 mmol/L High 98-108 [facility] Comment on above: Performed By: #### L 100.0100, L500.2500 ####[facility] [address] [place], [address] CO2 [Moles/Vol] 14.3 mmol/L Low 21.0-32.0 [facility] Comment on above: Performed By: #### L 100.0100, L500.2500 ####[facility] [address] [place], [address] Creatinine [Mass/Vol] 3.53 mg/dL High 0.70-1.20 [facility] Comment on above: Performed By: #### L 100.0100, L500.2500 ####[facility] [address] [place], [address] ECRCL 14.64 ml/min Low 50-250 [facility] Comment on above: Performed By: #### L 100.0100, L500.2500 ####[facility] [address] [place], [address] GAP 12 Normal 5-15 [facility] Comment on above: Performed By: #### L 100.0100, L500.2500 ####[facility] [address] [place], [address] GFR/1.73 sq M.predicted among non-blacks MDRD (S/P/Bld) [Vol rate/Area] 12 mL/min/{1.73_m2} Low >60 [facility] Comment on above: Result Comment: mL/m in/1.73m2 CKD-EPI Creatinine Equation (2020) Performed By: #### L 100.0100, L500.2500 ####[facility] [address] [place], [address] Glucose [Mass/Vol] 99 mg/dL Normal 70-99 [facility] Comment on above: Performed By: #### L 100.0100, L500.2500 ####[facility] [address] [place], [address] Potassium [Moles/Vol] 5.1 mmol/L Normal 3.3-5.1 [facility] Comment on above: Performed By: #### L 100.0100, L500.2500 ####[facility] [address] [place], [address] Sodium [Moles/Vol] 140 mmol/L Normal 133-145 [facility] Comment on above: Performed By: #### L 100.0100, L500.2500 ####[facility] [address] [place], [address] Urea nitrogen [Mass/Vol] 96 mg/dL High 4-19 [facility] Comment on above: Performed By: #### L 100.0100, L500.2500 ####[facility] [address] [place], [address] CBC W/Diff, Automatedon 09-05 Absolute Lymph 1.86 X10 3/uL Normal 0.83-4.51 [facility] Comment on above: Performed By: #### L 100.0100, L500.2500 ####[facility] [address] [place], [address] Absolute Neut 3.7 X10 3/uL Normal 2.0-7.7 [facility] Comment on above: Performed By: #### L 100.0100, L500.2500 ####[facility] [address] [place], [address] Basophils/100 WBC (Bld) 0.3 % Normal 0-1 [facility] Comment on above: Performed By: #### L 100.0100, L500.2500 ####[facility] [address] [place], [address] Eosinophils/100 WBC (Bld) 4.3 % Normal 0-5 [facility] Comment on above: Performed By: #### L 100.0100, L500.2500 ####[facility] [address] [place], [address] Erythrocyte distribution width (RBC) [Ratio] 15.6 % High 11.6-14.6 [facility] Comment on above: Performed By: #### L 100.0100, L500.2500 ####[facility] [address] [place], [address] Hematocrit (Bld) [Volume fraction] 28.0 % Low 37-47 [facility] Comment on above: Performed By: #### L 100.0100, L500.2500 ####[facility] [address] [place], [address] Hemoglobin (Bld) [Mass/Vol] 8.7 g/dL Low 12.0-15.0 [facility] Comment on above: Performed By: #### L 100.0100, L500.2500 ####[facility] [address] [place], [address] IG% 0.500 Normal 0.0-0.9 [facility] Comment on above: Result Comment: IG% - Immature Granulocytes (promyelocytes, myelocytes andmetamyelocytes) > 1% indicates that a LEFT SHIFT is Present. Performed By: #### L 100.0100, L500.2500 ####[facility] [address] [place], [address] Lymphocytes/100 WBC (Bld) 28.6 % Normal 19-41 [facility] Comment on above: Performed By: #### L 100.0100, L500.2500 ####[facility] [address] [place], [address] MCH (RBC) [Entitic mass] 32.1 pg High 27.0-32.0 [facility] Comment on above: Performed By: #### L 100.0100, L500.2500 ####[facility] [address] [place], [address] MCHC (RBC) [Mass/Vol] 31.1 g/dL Low 32-36 [facility] Comment on above: Performed By: #### L 100.0100, L500.2500 ####[facility] [address] [place], [address] MCV (RBC) [Entitic vol] 103.3 fL High 81-99 [facility] Comment on above: Performed By: #### L 100.0100, L500.2500 ####[facility] [address] [place], [address] Monocytes/100 WBC (Bld) 8.9 % Normal 0-10 [facility] Comment on above: Performed By: #### L 100.0100, L500.2500 ####[facility] [address] [place], [address] Neutrophils/100 WBC (Bld) 57.4 % Normal 47-70 [facility] Comment on above: Performed By: #### L 100.0100, L500.2500 ####[facility] [address] [place], [address] Nucleated RBC (Bld) [#/Vol] 0 10*3/uL Normal 0-5 [facility] Comment on above: Performed By: #### L 100.0100, L500.2500 ####[facility] [address] [place], [address] Platelet mean volume (Bld) [Entitic vol] 13.3 fL High 6.2-12.0 [facility] Comment on above: Performed By: #### L 100.0100, L500.2500 ####[facility] [address] [place], [address] Platelets (Bld) [#/Vol] 195 10*3/uL Normal 150-450 [facility] Comment on above: Performed By: #### L 100.0100, L500.2500 ####[facility] [address] [place], [address] RBC (Bld) [#/Vol] 2.71 10*6/uL Low 4.2-5.4 [facility] Comment on above: Performed By: #### L 100.0100, L500.2500 ####[facility] [address] [place], [address] RDW SD 59.2 fl High 35.1-43.9 [facility] Comment on above: Performed By: #### L 100.0100, L500.2500 ####[facility] [address] [place], [address] WBC (Bld) [#/Vol] 6.5 10*3/uL Normal 4.4-11.0 [facility] Comment on above: Performed By: #### L 100.0100, L500.2500 ####[facility] [address] [place], [address] Urine cultureOrdered By: Helen Zamora on 09-30-2024 Bacteria identified Cx Nom (U) Enterococcus raffinosus Abnormal [facility] Basic Metabolic Profile (BMP )on 09-29-2024 BUN/CRE 26.7 RATIO High 10-20 [facility] Comment on above: Performed By: #### L 500.2500 ####[facility] [address] [place], [address] Calcium [Mass/Vol] 8.0 mg/dL Normal 7.6-11.0 [facility] Comment on above: Performed By: #### L 500.2500 ####[facility] [address] [place], [address] Performed By: #### L 100.0100, L500.4050 ####[facility] [address] [place], [address] Chloride [Moles/Vol] 112 mmol/L High 98-108 [facility] Comment on above: Performed By: #### L 500.2500 ####[facility] [address] [place], [address] CO2 [Moles/Vol] 12.4 mmol/L Low 21.0-32.0 [facility] Comment on above: Performed By: #### L 500.2500 ####[facility] [address] [place], [address] Creatinine [Mass/Vol] 3.90 mg/dL High 0.70-1.20 [facility] Comment on above: Performed By: #### L 500.2500 ####[facility] [address] [place], [address] ECRCL 13.06 ml/min Low 50-250 [facility] Comment on above: Performed By: #### L 500.2500 ####[facility] [address] [place], [address] GAP 17 High 5-15 [facility] Comment on above: Performed By: #### L 500.2500 ####[facility] [address] [place], [address] GFR/1.73 sq M.predicted among non-blacks MDRD (S/P/Bld) [Vol rate/Area] 11 mL/min/{1.73_m2} Low >60 [facility] Comment on above: Result Comment: mL/m in/1.73m2 CKD-EPI Creatinine Equation (2020) Performed By: #### L 500.2500 ####[facility] [address] [place], [address] Performed By: #### L 100.0100, L500.4050 ####[facility] [address] [place], [address] Glucose [Mass/Vol] 147 mg/dL High 70-99 [facility] Comment on above: Performed By: #### L 500.2500 ####[facility] [address] [place], [address] Potassium [Moles/Vol] 5.1 mmol/L Normal 3.3-5.1 [facility] Comment on above: Performed By: #### L 500.2500 ####[facility] [address] [place], [address] Sodium [Moles/Vol] 141 mmol/L Normal 133-145 [facility] Comment on above: Performed By: #### L 500.2500 ####[facility] [address] [place], [address] Performed By: #### L 100.0100, L500.4050 ####[facility] [address] [place], [address] Urea nitrogen [Mass/Vol] 104 mg/dL Invalid Interpretation Code 07-23 [facility] Comment on above: Result Comment: Crit ical Result(s) Called at:0251 by:??CHRISTIANNE GREGG Results read back by same. Performed By: #### L 500.2500 ####[facility] [address] [place], [address] Bedside Glucoseon 09-29-2024 FINGERSTICK GLU 81 mg/dL Normal 74-106 [facility] Comment on above: Result Comment: ALIDA GEMENT OF PATIENT CARE PER NURSING PROTOCOL Performed By: #### L 501.080 ####[facility] [address] [place], [address] FINGERSTICK GLU 87 mg/dL Normal 74-106 [facility] Comment on above: Result Comment: ALIDA GEMENT OF PATIENT CARE PER NURSING PROTOCOL Performed By: #### L 501.080 ####[facility] [address] [place], [address] FINGERSTICK GLU 52 mg/dL Low 74-106 [facility] Comment on above: Result Comment: ALIDA GEMENT OF PATIENT CARE PER NURSING PROTOCOL Performed By: #### L 501.080 ####[facility] [address] [place], [address] FINGERSTICK GLU 59 mg/dL Low 74-106 [facility] Comment on above: Result Comment: ALIDA GEMENT OF PATIENT CARE PER NURSING PROTOCOL Performed By: #### L 501.080 ####[facility] [address] [place], [address] FINGERSTICK GLU 89 mg/dL Normal 74-106 [facility] Comment on above: Result Comment: ALIDA GEMENT OF PATIENT CARE PER NURSING PROTOCOL Performed By: #### L 501.080 ####[facility] [address] [place], [address] FINGERSTICK GLU 143 mg/dL High 74-106 [facility] Comment on above: Result Comment: ALIDA GEMENT OF PATIENT CARE PER NURSING PROTOCOL Performed By: #### L 501.080 ####[facility] [address] [place], [address] CBC W/Diff, Automatedon -2 -2024 Absolute Lymph 1.77 X10 3/uL Normal 0.83-4.51 [facility] Comment on above: Performed By: #### L 100.0100, L500.4050 ####[facility] [address] [place], [address] Absolute Neut 2.9 X10 3/uL Normal 2.0-7.7 [facility] Comment on above: Performed By: #### L 100.0100, L500.4050 ####[facility] [address] [place], [address] Basophils/100 WBC (Bld) 0.5 % Normal 0-1 [facility] Comment on above: Performed By: #### L 100.0100, L500.4050 ####[facility] [address] [place], [address] Eosinophils/100 WBC (Bld) 3.8 % Normal 0-5 [facility] Comment on above: Performed By: #### L 100.0100, L500.4050 ####[facility] [address] [place], [address] Erythrocyte distribution width (RBC) [Ratio] 15.4 % High 11.6-14.6 [facility] Comment on above: Performed By: #### L 100.0100, L500.4050 ####[facility] [address] [place], [address] Hematocrit (Bld) [Volume fraction] 29.4 % Low 37-47 [facility] Comment on above: Performed By: #### L 100.0100, L500.4050 ####[facility] [address] [place], [address] Hemoglobin (Bld) [Mass/Vol] 8.9 g/dL Low 12.0-15.0 [facility] Comment on above: Performed By: #### L 100.0100, L500.4050 ####[facility] [address] [place], [address] IG% 0.200 Normal 0.0-0.9 [facility] Comment on above: Result Comment: IG% - Immature Granulocytes (promyelocytes, myelocytes andmetamyelocytes) > 1% indicates that a LEFT SHIFT is Present. Performed By: #### L 100.0100, L500.4050 ####[facility] [address] [place], [address] Lymphocytes/100 WBC (Bld) 32.2 % Normal 19-41 [facility] Comment on above: Performed By: #### L 100.0100, L500.4050 ####[facility] [address] [place], [address] MCH (RBC) [Entitic mass] 31.8 pg Normal 27.0-32.0 [facility] Comment on above: Performed By: #### L 100.0100, L500.4050 ####[facility] [address] [place], [address] MCHC (RBC) [Mass/Vol] 30.3 g/dL Low 32-36 [facility] Comment on above: Performed By: #### L 100.0100, L500.4050 ####[facility] [address] [place], [address] MCV (RBC) [Entitic vol] 105.0 fL High 81-99 [facility] Comment on above: Performed By: #### L 100.0100, L500.4050 ####[facility] [address] [place], [address] Monocytes/100 WBC (Bld) 9.8 % Normal 0-10 [facility] Comment on above: Performed By: #### L 100.0100, L500.4050 ####[facility] [address] [place], [address] Neutrophils/100 WBC (Bld) 53.5 % Normal 47-70 [facility] Comment on above: Performed By: #### L 100.0100, L500.4050 ####[facility] [address] [place], [address] Nucleated RBC (Bld) [#/Vol] 0 10*3/uL Normal 0-5 [facility] Comment on above: Performed By: #### L 100.0100, L500.4050 ####[facility] [address] [place], [address] Platelet mean volume (Bld) [Entitic vol] 13.8 fL High 6.2-12.0 [facility] Comment on above: Performed By: #### L 100.0100, L500.4050 ####[facility] [address] [place], [address] Platelets (Bld) [#/Vol] 189 10*3/uL Normal 150-450 [facility] Comment on above: Performed By: #### L 100.0100, L500.4050 ####[facility] [address] [place], [address] RBC (Bld) [#/Vol] 2.80 10*6/uL Low 4.2-5.4 [facility] Comment on above: Performed By: #### L 100.0100, L500.4050 ####[facility] [address] [place], [address] RDW SD 59.1 fl High 35.1-43.9 [facility] Comment on above: Performed By: #### L 100.0100, L500.4050 ####[facility] [address] [place], [address] WBC (Bld) [#/Vol] 5.5 10*3/uL Normal 4.4-11.0 [facility] Comment on above: Performed By: #### L 100.0100, L500.4050 ####[facility] [address] [place], [address] CNPNon 09-29-2024 [facility] Telephone (FAMPWS) JOHNMARI ([id number]) 1940 F Date Time Provider Department 09/29[facility] visit today, we recorded the following information about you: Adela Pena LPN 09/29/2024 10:28 AM Signed Patient friend said she is her POA, Alex calling said patient is currently admitted to [facility]. She was taken via squad last [...] [1003] 05/07/2005 07/12/2021 INJURY TRUNK SITE NEC [[id number]] 01/16/2006 07/01/2007 Anemia in chronic kidney disease [...] with scia (more content not included)... Normal [facility] Metabolic [facility] ilon 09-29-2024 Albumin [Mass/Vol] 2.9 g/dL Low 3.4-4.8 [facility] Comment on above: Performed By: #### L 100.0100, L500.4050 ####[facility] [address] [place], [address] Albumin/Globulin [Mass ratio] 1.2 {ratio} Normal 0.9-2.4 [facility] Comment on above: Performed By: #### L 100.0100, L500.4050 ####[facility] [address] [place], [address] ALK PHOS 148 U/L High 35-104 [facility] Comment on above: Performed By: #### L 100.0100, L500.4050 ####[facility] [address] [place], [address] ALT [Catalytic activity/Vol] 485 U/L High <=34 [facility] Comment on above: Performed By: #### L 100.0100, L500.4050 ####[facility] [address] [place], [address] AST [Catalytic activity/Vol] 561 U/L High <=31 [facility] Comment on above: Performed By: #### L 100.0100, L500.4050 ####[facility] [address] [place], [address] Bilirubin [Mass/Vol] 0.18 mg/dL Normal 0.00-1.30 [facility] Comment on above: Performed By: #### L 100.0100, L500.4050 ####[facility] [address] [place], [address] BUN/CRE 27.2 RATIO High 10-20 [facility] Comment on above: Performed By: #### L 100.0100, L500.4050 ####[facility] [address] [place], [address] Chloride [Moles/Vol] 111 mmol/L High 98-108 [facility] Comment on above: Performed By: #### L 100.0100, L500.4050 ####[facility] [address] [place], [address] CO2 [Moles/Vol] 13.6 mmol/L Low 21.0-32.0 [facility] Comment on above: Performed By: #### L 100.0100, L500.4050 ####[facility] [address] [place], [address] Creatinine [Mass/Vol] 3.78 mg/dL High 0.70-1.20 [facility] Comment on above: Performed By: #### L 100.0100, L500.4050 ####[facility] [address] [place], [address] ECRCL 13.47 ml/min Low 50-250 [facility] Comment on above: Performed By: #### L 100.0100, L500.4050 ####[facility] [address] [place], [address] GAP 16 High 5-15 [facility] Comment on above: Performed By: #### L 100.0100, L500.4050 ####[facility] [address] [place], [address] Globulin (S) [Mass/Vol] 2.4 g/dL Normal 2.2-4.2 [facility] Comment on above: Performed By: #### L 100.0100, L500.4050 ####[facility] [address] [place], [address] Glucose [Mass/Vol] 62 mg/dL Low 70-99 [facility] Comment on above: Performed By: #### L 100.0100, L500.4050 ####[facility] [address] [place], [address] Potassium [Moles/Vol] 4.7 mmol/L Normal 3.3-5.1 [facility] Comment on above: Performed By: #### L 100.0100, L500.4050 ####[facility] [address] [place], [address] T PROT 5.3 g/dL Low 5.9-8.4 [facility] Comment on above: Performed By: #### L 100.0100, L500.4050 ####[facility] [address] [place], [address] Urea nitrogen [Mass/Vol] 103 mg/dL Invalid Interpretation Code 4-19 [facility] Comment on above: Result Comment: Crit ical Result(s) Called at:0413 by: CHRISTIANNE GUZMAN TO KRISTY??Results read back by same. Performed By: #### L 100.0100, L500.4050 ####[facility] [address] [place], [address] Consultation - Nephrologyon 09-29-2024 Consultation - Nephrology Normal [facility] Glucose measurement at [facility] deOrdered By: Russell Todd on 09-29-2024 Glucose [Mass/Vol] 81 mg/dL 74-106 [facility] L499.0042on 09-29-2024 Trop T High Sen 55 ng/L Invalid Interpretation Code <=14 [facility] Comment on above: Result Comment: Crit ical Result(s) Called at:0236 by:??CHRISTIANNE HAVEN TO KRISTY Results read back by same. Performed By: #### L 499.0042 ####[facility] [address] [place], [address] L499.0043on 09-29-2024 Trop T High Sen 44 ng/L High <=14 [facility] Comment on above: Performed By: #### L 499.0043 ####[facility] [address] [place], [address] Troponin T.cardiac [Mass/vol ume] in Serum or Plasma by High sensitivity methodOrdered By: Michelle Gallardo on 09-29-2024 Troponin T.cardiac High sensitivity method [Mass/Vol] 44 ng/L High <14 [facility] Troponin T.cardiac High sensitivity method [Mass/Vol] 55 ng/L High <14 [facility] Urine cultureOrdered By: Sandra Gallardo on 09-29-2024 Bacteria identified Cx Nom (U) Escherichia coli Abnormal [facility] Absolute lymphocyte countOrd ered By: Jhonatan Maxwell on 09-28-2024 Lymphocytes Auto (Unsp spec) [#/Vol] 1.52 10*3/uL 0.83-4.51 [facility] Anion gap in Serum or Plasma Ordered By: Jhonatan Maxwell on 09-28-2024 Anion gap [Moles/Vol] 15 mmol/L 5-15 [facility] Automated lymphocyte count a s percentage of total leukocytesOrdered By: Jhonatan Maxwell on 09-28-2024 Lymphocytes/100 WBC Auto (Unsp spec) 20.1 % 19-41 [facility] BUN/creatinine ratioOrdered By: Jhonatan Maxwell on 09-28-2024 Urea nitrogen/Creatinine [Mass ratio] 26.7 mg/mg High 10-20 [facility] Basic Metabolic Profile (BMP )on 09-28-2024 BUN/CRE 26.2 RATIO High - [facility] Comment on above: Performed By: #### L 500.2500 ####[facility] [address] [place], [address] Calcium [Mass/Vol] 8.2 mg/dL Normal 7.6-11.0 [facility] Comment on above: Performed By: #### L 500.2500 ####[facility] [address] [place], [address] Chloride [Moles/Vol] 113 mmol/L High 98-108 [facility] Comment on above: Performed By: #### L 500.2500 ####[facility] [address] [place], [address] CO2 [Moles/Vol] 11.1 mmol/L Low 21.0-32.0 [facility] Comment on above: Performed By: #### L 500.2500 ####[facility] [address] [place], [address] Creatinine [Mass/Vol] 3.97 mg/dL High 0.70-1.20 [facility] Comment on above: Performed By: #### L 500.2500 ####[facility] [address] [place], [address] ECRCL 12.83 ml/min Low 50-250 [facility] Comment on above: Performed By: #### L 500.2500 ####[facility] [address] [place], [address] GAP 16 High 5-15 [facility] Comment on above: Performed By: #### L 500.2500 ####[facility] [address] [place], [address] GFR/1.73 sq M.predicted among non-blacks MDRD (S/P/Bld) [Vol rate/Area] 11 mL/min/{1.73_m2} Low >60 [facility] Comment on above: Result Comment: mL/m in/1.73m2 CKD-EPI Creatinine Equation (2020) Performed By: #### L 500.2500 ####[facility] [address] [place], [address] Glucose [Mass/Vol] 170 mg/dL High 70-99 [facility] Comment on above: Performed By: #### L 500.2500 ####[facility] [address] [place], [address] Potassium [Moles/Vol] 5.4 mmol/L High 3.3-5.1 [facility] Comment on above: Performed By: #### L 500.2500 ####[facility] [address] [place], [address] Sodium [Moles/Vol] 139 mmol/L Normal 133-145 [facility] Comment on above: Performed By: #### L 500.2500 ####[facility] [address] [place], [address] Urea nitrogen [Mass/Vol] 104 mg/dL Invalid Interpretation Code 4-19 [facility] Comment on above: Result Comment: Crit ical Result(s) Called at: 2340 by:??CHRISTIANNE SCHMITZ Results read back by same. Performed By: #### L 500.2500 ####[facility] [address] [place], [address] Basophil percentageOrdered B y: Jhonatan Maxwell on 09-28-2024 Basophils/100 WBC (Bld) 0.3 % 0-1 [facility] Bedside Glucoseon 09-28-2024 FINGERSTICK GLU 145 mg/dL High 74-106 [facility] Comment on above: Result Comment: ALIDA GLASS OF PATIENT CARE PER NURSING PROTOCOL Performed By: #### L 501.080 ####[facility] [address] [place], [address] Bilirubin Test strip Ql (U)O rdered By: Jhonatan Maxwell on 09-28-2024 Bilirubin Ql (U) Negative Negative [facility] Bilirubin, totalOrdered By: Jhonatan Maxwell on 09-28-2024 Bilirubin [Mass/Vol] 0.20 mg/dL 0.00-1.30 [facility] Brain/Head without Contrasto n 09-28-2024 Brain/Head without Contrast Normal [facility] CBC W/Diff, Automatedon 09-05 Absolute Lymph 1.52 X10 3/uL Normal 0.83-4.51 [facility] Comment on above: Performed By: #### L 501.5200, L503.6005, L500.4050, L501.2450, L100.0100 ####[facility] [address] [place], [address] Absolute Neut 5.1 X10 3/uL Normal 2.0-7.7 [facility] Comment on above: Performed By: #### L 501.5200, L503.6005, L500.4050, L501.2450, L100.0100 ####[facility] [address] [place], [address] Basophils/100 WBC (Bld) 0.3 % Normal 0-1 [facility] Comment on above: Performed By: #### L 501.5200, L503.6005, L500.4050, L501.2450, L100.0100 ####[facility] [address] [place], [address] Eosinophils/100 WBC (Bld) 3.6 % Normal 0-5 [facility] Comment on above: Performed By: #### L 501.5200, L503.6005, L500.4050, L501.2450, L100.0100 ####[facility] [address] [place], [address] Erythrocyte distribution width (RBC) [Ratio] 15.5 % High 11.6-14.6 [facility] Comment on above: Performed By: #### L 501.5200, L503.6005, L500.4050, L501.2450, L100.0100 ####[facility] [address] [place], [address] Hematocrit (Bld) [Volume fraction] 30.0 % Low 37-47 [facility] Comment on above: Performed By: #### L 501.5200, L503.6005, L500.4050, L501.2450, L100.0100 ####[facility] [address] [place], [address] Hemoglobin (Bld) [Mass/Vol] 9.2 g/dL Low 12.0-15.0 [facility] Comment on above: Performed By: #### L 501.5200, L503.6005, L500.4050, L501.2450, L100.0100 ####[facility] [address] [place], [address] IG% 0.400 Normal 0.0-0.9 [facility] Comment on above: Result Comment: IG% - Immature Granulocytes (promyelocytes, myelocytes andmetamyelocytes) > 1% indicates that a LEFT SHIFT is Present. Performed By: #### L 501.5200, L503.6005, L500.4050, L501.2450, L100.0100 ####[facility] [address] [place], [address] Lymphocytes/100 WBC (Bld) 20.1 % Normal 19-41 [facility] Comment on above: Performed By: #### L 501.5200, L503.6005, L500.4050, L501.2450, L100.0100 ####[facility] [address] [place], [address] MCH (RBC) [Entitic mass] 31.9 pg Normal 27.0-32.0 [facility] Comment on above: Performed By: #### L 501.5200, L503.6005, L500.4050, L501.2450, L100.0100 ####[facility] [address] [place], [address] MCHC (RBC) [Mass/Vol] 30.7 g/dL Low 32-36 [facility] Comment on above: Performed By: #### L 501.5200, L503.6005, L500.4050, L501.2450, L100.0100 ####[facility] [address] [place], [address] MCV (RBC) [Entitic vol] 104.2 fL High 81-99 [facility] Comment on above: Performed By: #### L 501.5200, L503.6005, L500.4050, L501.2450, L100.0100 ####[facility] [address] [place], [address] Monocytes/100 WBC (Bld) 8.7 % Normal 0-10 [facility] Comment on above: Performed By: #### L 501.5200, L503.6005, L500.4050, L501.2450, L100.0100 ####[facility] [address] [place], [address] Neutrophils/100 WBC (Bld) 66.9 % Normal 47-70 [facility] Comment on above: Performed By: #### L 501.5200, L503.6005, L500.4050, L501.2450, L100.0100 ####[facility] [address] [place], [address] Nucleated RBC (Bld) [#/Vol] 0 10*3/uL Normal 0-5 [facility] Comment on above: Performed By: #### L 501.5200, L503.6005, L500.4050, L501.2450, L100.0100 ####[facility] [address] [place], [address] Platelet mean volume (Bld) [Entitic vol] 13.2 fL High 6.2-12.0 [facility] Comment on above: Performed By: #### L 501.5200, L503.6005, L500.4050, L501.2450, L100.0100 ####[facility] [address] [place], [address] Platelets (Bld) [#/Vol] 206 10*3/uL Normal 150-450 [facility] Comment on above: Performed By: #### L 501.5200, L503.6005, L500.4050, L501.2450, L100.0100 ####[facility] [address] [place], [address] RBC (Bld) [#/Vol] 2.88 10*6/uL Low 4.2-5.4 [facility] Comment on above: Performed By: #### L 501.5200, L503.6005, L500.4050, L501.2450, L100.0100 ####[facility] [address] [place], [address] RDW SD 58.2 fl High 35.1-43.9 [facility] Comment on above: Performed By: #### L 501.5200, L503.6005, L500.4050, L501.2450, L100.0100 ####[facility] [address] [place], [address] WBC (Bld) [#/Vol] 7.6 10*3/uL Normal 4.4-11.0 [facility] Comment on above: Performed By: #### L 501.5200, L503.6005, L500.4050, L501.2450, L100.0100 ####[facility] [address] [place], [address] CPK Total, Creatine Kinaseon 09-28-2024 CPK TOTAL 27 U/L Normal 24-195 [facility] Comment on above: Performed By: #### L 501.3620 ####[facility] [address] [place], [address] Carbon dioxide, total [Moles /volume] in Central venous bloodOrdered By: Jhonatan Maxwell on 09-28-2024 CO2 [Moles/Vol] 11.0 mmol/L Low 21.0-32.0 [facility] Chloride assayOrdered By: Howard Maxwell on 09-28-2024 Chloride [Moles/Vol] 113 mmol/L High 98-108 [facility] Comprehensive Metabolic Prof ilon 09-28-2024 Albumin [Mass/Vol] 3.1 g/dL Low 3.4-4.8 [facility] Comment on above: Performed By: #### L 501.5200, L503.6005, L500.4050, L501.2450, L100.0100 ####[facility] [address] [place], [address] Albumin/Globulin [Mass ratio] 1.1 {ratio} Normal 0.9-2.4 [facility] Comment on above: Performed By: #### L 501.5200, L503.6005, L500.4050, L501.2450, L100.0100 ####[facility] [address] [place], [address] ALK PHOS 130 U/L High 35-104 [facility] Comment on above: Performed By: #### L 501.5200, L503.6005, L500.4050, L501.2450, L100.0100 ####[facility] [address] [place], [address] ALT [Catalytic activity/Vol] 351 U/L High <=34 [facility] Comment on above: Performed By: #### L 501.5200, L503.6005, L500.4050, L501.2450, L100.0100 ####[facility] [address] [place], [address] AST [Catalytic activity/Vol] 289 U/L High <=31 [facility] Comment on above: Performed By: #### L 501.5200, L503.6005, L500.4050, L501.2450, L100.0100 ####[facility] [address] [place], [address] Bilirubin [Mass/Vol] 0.20 mg/dL Normal 0.00-1.30 [facility] Comment on above: Performed By: #### L 501.5200, L503.6005, L500.4050, L501.2450, L100.0100 ####[facility] [address] [place], [address] BUN/CRE 26.7 RATIO High 10-20 [facility] Comment on above: Performed By: #### L 501.5200, L503.6005, L500.4050, L501.2450, L100.0100 ####[facility] [address] [place], [address] Calcium [Mass/Vol] 7.9 mg/dL Normal 7.6-11.0 [facility] Comment on above: Performed By: #### L 501.5200, L503.6005, L500.4050, L501.2450, L100.0100 ####[facility] [address] [place], [address] Chloride [Moles/Vol] 113 mmol/L High 98-108 [facility] Comment on above: Performed By: #### L 501.5200, L503.6005, L500.4050, L501.2450, L100.0100 ####[facility] [address] [place], [address] CO2 [Moles/Vol] 11.0 mmol/L Low 21.0-32.0 [facility] Comment on above: Performed By: #### L 501.5200, L503.6005, L500.4050, L501.2450, L100.0100 ####[facility] [address] [place], [address] Creatinine [Mass/Vol] 4.15 mg/dL High 0.70-1.20 [facility] Comment on above: Performed By: #### L 501.5200, L503.6005, L500.4050, L501.2450, L100.0100 ####[facility] [address] [place], [address] GAP 15 Normal 5-15 [facility] Comment on above: Performed By: #### L 501.5200, L503.6005, L500.4050, L501.2450, L100.0100 ####[facility] [address] [place], [address] GFR/1.73 sq M.predicted among non-blacks MDRD (S/P/Bld) [Vol rate/Area] 10 mL/min/{1.73_m2} Low >60 [facility] Comment on above: Result Comment: mL/m in/1.73m2 CKD-EPI Creatinine Equation (2020) Performed By: #### L 501.5200, L503.6005, L500.4050, L501.2450, L100.0100 ####[facility] [address] [place], [address] Globulin (S) [Mass/Vol] 2.7 g/dL Normal 2.2-4.2 [facility] Comment on above: Performed By: #### L 501.5200, L503.6005, L500.4050, L501.2450, L100.0100 ####[facility] [address] [place], [address] Glucose [Mass/Vol] 129 mg/dL High 70-99 [facility] Comment on above: Performed By: #### L 501.5200, L503.6005, L500.4050, L501.2450, L100.0100 ####[facility] [address] [place], [address] Potassium [Moles/Vol] 6.0 mmol/L Invalid Interpretation Code 3.3-5.1 [facility] Comment on above: Result Comment: Crit ical Result(s) Called at: 1844 by: DORYS VU??Results read back by same. Performed By: #### L 501.5200, L503.6005, L500.4050, L501.2450, L100.0100 ####[facility] [address] [place], [address] Sodium [Moles/Vol] 139 mmol/L Normal 133-145 [facility] Comment on above: Performed By: #### L 501.5200, L503.6005, L500.4050, L501.2450, L100.0100 ####[facility] [address] [place], [address] T PROT 5.9 g/dL Normal 5.9-8.4 [facility] Comment on above: Performed By: #### L 501.5200, L503.6005, L500.4050, L501.2450, L100.0100 ####[facility] [address] [place], [place], [address] Urea nitrogen [Mass/Vol] 111 mg/dL Invalid Interpretation Code 4-19 [facility] Comment on above: Result Comment: Crit ical Result(s) Called at: 1844 by:??DORYS VU Results read back by same. Performed By: #### L 501.5200, L503.6005, L500.4050, L501.2450, L100.0100 ####[facility] [address] [place], [place], [id number] Creatinine, Urine (random)on 09-28-2024 UR CREAT 34.40 mg/dL Normal 28.00-217. 00 [facility] Comment on above: Performed By: #### L 501.1200, L501.5500 ####[facility] [address] [place], [place], [id number] Emergency Department Summary on 09-28-2024 Emergency Department Summary Normal [facility] Eosinophil percentageOrdered By: Jhonatan Maxwell on 09-28-2024 Eosinophils/100 WBC (Bld) 3.6 % 0-5 [facility] Erythrocyte distribution wid th ratioOrdered By: Jhonatan Maxwell on 09-28-2024 Erythrocyte distribution width (RBC) [Ratio] 15.5 % High 11.6-14.6 [facility] Erythrocyte distribution wid th standard deviationOrdered By: Jhonatan Maxwell on 09-28-2024 Erythrocyte distribution width (RBC) [Ratio] 58.2 fl High 35.1-43.9 [facility] Glomerular filtration rate ( GFR) estimation/1.73 sq m using serum, plasma, or whole bOrdered By: Jhonatan Maxwell on 09-28-2024 GFR/1.73 sq M.predicted among non-blacks MDRD (S/P/Bld) [Vol rate/Area] 10 mL/min/{1.73_m2} Low >60 [facility] H AND P Exam - Hospitaliston 09-28-2024 H&P Exam - Hospitalist Normal [facility] Hematocrit Auto (Bld) [Volum e fraction]Ordered By: Jhonatan Maxwell on 09-28-2024 Hematocrit (Bld) [Volume fraction] 30.0 % Low 37-47 [facility] Hemoglobin measurementOrdere d By: Jhonatan Oliviaer on 09-28-2024 Hemoglobin (Bld) [Mass/Vol] 9.2 g/dL Low 12.0-15.0 [facility] Immature granulocytes/100 WB C Auto (Bld)Ordered By: Jhonatan Maxwell on 09-28-2024 Immature granulocytes/100 WBC (Bld) 0.400 % 0.0-0.9 [facility] Ketones Test strip Ql (U)Ord ered By: Jhonatan Alissa on 09-28-2024 Ketones Ql (U) Negative Negative [facility] Kidney and Bladderon 025 Kidney and Bladder Normal [facility] Knee 1 or 2 Viewson 09-29-19 25 Knee 1 or 2 Views Normal [facility] Knee 1 or 2 Views Normal [facility] L499.0042on 09-28-2024 Trop T High Sen Normal <=14 [facility] Comment on above: Result Comment: Erlin jaime via OM: Ordered Performed By: #### L 499.0042 ####[facility] [address] [place], [address] L499.0043on 09-28-2024 Trop T High Sen Normal <=14 [facility] Comment on above: Result Comment: Erlin jaime via OM: Ordered Performed By: #### L 499.0043 ####[facility] [address] [place], [address] L501.4021on 09-28-2024 Trop T High Sen 41 ng/L High <=14 [facility] Comment on above: Performed By: #### L 501.4021 ####[facility] [address] [place], [address] Trop T High Sen 44 ng/L High <=14 [facility] Comment on above: Performed By: #### L 501.4021 ####[facility] [address] [place], [address] Lactic Acidon 09-28-2024 Lactate [Moles/Vol] mmol/L Normal 0.0-2.0 [facility] Comment on above: Order Comment: Y Performed By: #### L 501.5200, L503.6005, L500.4050, L501.2450, L100.0100 ####[facility] [address] [place], [address] Lipaseon 09-28-2024 Lipase [Catalytic activity/Vol] 54 U/L Normal 13-75 [facility] Comment on above: Result Comment: Reinaldo patel note:LIPASE revised reference range effective 22.New Lipase methodology. Expected to produce lower valuesthan the previous assay method.NEW Reference Range: 13 - 75 U/L Performed By: #### L 501.5200, L503.6005, L500.4050, L501.2450, L100.0100 ####[facility] [address] [place], [address] MCV (mean corpuscular volume ) determinationOrdered By: Jhonatan Maxwell on 09-28-2024 MCV (RBC) [Entitic vol] 104.2 fL High 81-99 [facility] Magnesiumon 09-28-2024 Magnesium [Mass/Vol] 3.1 mg/dL High 1.5-2.2 [facility] Comment on above: Performed By: #### L 501.5200, L503.6005, L500.4050, L501.2450, L100.0100 ####[facility] [address] [place], [address] Magnesium measurement (mass/ volume)Ordered By: Jhonatan Maxwell on 09-28-2024 Magnesium (Unsp spec) [Mass/Vol] 3.1 mg/dL High 1.5-2.2 [facility] Mean corpuscular hemoglobin (MCH) determinationOrdered By: Jhonatan Maxwell on 09-28-2024 MCH (RBC) [Entitic mass] 31.9 pg 27.0-32.0 [facility] Monocyte percentageOrdered B y: Jhonatan Maxwell on 09-28-2024 Monocytes/100 WBC (Bld) 8.7 % 0-10 [facility] Mucus LM Ql (Urine sed)Order ed By: Jhonatan Maxwell on 09-28-2024 Mucus Ql (Urine sed) 0 SEEN /hpf [facility] Neutrophil percentageOrdered By: Jhonatan Maxwell on 09-28-2024 Neutrophils/100 WBC (Bld) 66.9 % 47-70 [facility] Nitrite Test strip Ql (U)Ord ered By: Jhonatan Maxwell on 09-28-2024 Nitrite Ql (U) Negative Negative [facility] No Panel InformationOrdered By: Jhonatan Maxwell on 09-28-2024 289 U/L High <32 [facility] Platelet countOrdered By: Howard Maxwell on 09-28-2024 Platelets (Bld) [#/Vol] 206 10*3/uL 150-450 [facility] Potassium measurement (mass/ volume)Ordered By: Jhonatan Maxwell on 09-28-2024 Potassium (Unsp spec) [Mass/Vol] 6.0 mmol/L High 3.3-5.1 [facility] Protein Test strip Ql (U)Ord ered By: Jhonatan Maxwell on 09-28-2024 Protein Ql (U) 15 mg/dl High Negative [facility] RBC Auto (Bld) [#/Vol]Ordere d By: Jhonatan Maxwell on 09-28-2024 RBC (Bld) [#/Vol] 2.88 10*6/uL Low 4.2-5.4 [facility] Random urine creatinine farheen urement (mass/volume)Ordered By: Michelle Gallardo on 09-28-2024 Creatinine Unsp time (U) [Mass/Vol] 34.40 mg/dL 28.00-217. 00 [facility] Serum creatinine measurement (mass/volume)Ordered By: Jhonatan Maxwell on 09-28-2024 Creatinine [Mass/Vol] 4.15 mg/dL High 0.70-1.20 [facility] Serum globulin measurementOr dered By: Jhonatan Maxwell on 09-28-2024 Globulin (S) [Mass/Vol] 2.7 g/dL 2.2-4.2 [facility] Serum glucose measurement (m ass/volume)Ordered By: Jhonatan Maxwell on 09-28-2024 Glucose [Mass/Vol] 129 mg/dL High 70-99 [facility] Serum or plasma alanine huertas otransferase (ALT) measurementOrdered By: Jhonatan Maxwell on 09-28-2024 ALT [Catalytic activity/Vol] 351 U/L High <35 [facility] Serum or plasma albumin farheen urement (mass/volume)Ordered By: Jhonatan Maxwell on 09-28-2024 Albumin [Mass/Vol] 3.1 g/dL Low 3.4-4.8 [facility] Serum or plasma albumin/glob ulin mass ratioOrdered By: Jhonatan Maxwell on 09-28-2024 Albumin/Globulin [Mass ratio] 1.1 {ratio} 0.9-2.4 [facility] Serum or plasma alkaline mariya sphatase measurementOrdered By: Jhonatan Maxwell on 09-28-2024 ALP [Catalytic activity/Vol] 130 U/L High 35-104 [facility] Serum or plasma calcium farheen urement (mass/volume)Ordered By: Jhonatan Maxwell on 09-28-2024 Calcium [Mass/Vol] 7.9 mg/dL 7.6-11.0 [facility] Serum or plasma creatine kin ase activityOrdered By: Laurence Zamora on 09-28-2024 CK [Catalytic activity/Vol] 27 U/L 24-195 [facility] Serum or plasma urea nitroge n measurement (mass/volume)Ordered By: Jhonatan Maxwell on 09-28-2024 Urea nitrogen [Mass/Vol] 111 mg/dL High 4-19 [facility] Sodium levelOrdered By: Deuce Maxwell on 09-28-2024 Sodium [Moles/Vol] 139 mmol/L 133-145 [facility] Squamous epithelial cells de tection in urine sediment by light microscopyOrdered By: Jhonatan Maxwell on 09-28-2024 Epithelial cells.squamous LM Ql (Urine sed) 0-5 SEEN /hpf 5-10 [facility] Total proteinOrdered By: Al Maxwell on 09-28-2024 Protein [Mass/Vol] 5.9 g/dL 5.9-8.4 [facility] Troponin T.cardiac [Mass/vol ume] in Serum or Plasma by High sensitivity methodOrdered By: Michelle Gallardo on 09-28-2024 Troponin T.cardiac High sensitivity method [Mass/Vol] 41 ng/L High <14 [facility] Troponin T.cardiac [Mass/vol ume] in Serum or Plasma by High sensitivity methodOrdered By: Jhonatan Maxwell on 09-28-2024 Troponin T.cardiac High sensitivity method [Mass/Vol] 44 ng/L High <14 [facility] Urinalysis, Completeon 09-28 EPI,SQUAMOUS 0-5 SEEN Normal 5-10 [facility] Comment on above: Order Comment: CLEAN CATCH Performed By: #### L 400.0001 ####[facility] [address] [place] [address] RBC 0-5 SEEN Normal 0-5 [facility] Comment on above: Order Comment: CLEAN CATCH Performed By: #### L 400.0001 ####[facility] [address] [place] [address] BACTERIA 3+ /hpf Normal None Seen [facility] Comment on above: Order Comment: CLEAN CATCH Performed By: #### L 400.0001 ####[facility] [address] [place], [address] WBC >100 SEEN Normal 0-5 [facility] Comment on above: Order Comment: CLEAN CATCH Performed By: #### L 400.0001 ####[facility] [address] [facility] [address] Mucus Ql (Urine sed) 0 SEEN Normal [facility] Comment on above: Order Comment: CLEAN CATCH Performed By: #### L 400.0001 ####[facility] [address] [place], [address] Urine Sodiumon 09-28-2024 Sodium (U) [Moles/Vol] 79 mmol/L Normal Not Establ. [facility] Comment on above: Performed By: #### L 501.1200, L501.5500 ####[facility] [address] [place], [address] Urine clarityOrdered By: Al Maxwell on 09-28-2024 Clarity (U) Turbid Clear [facility] Urine color determinationOrd ered By: Jhonatan Maxwell on 09-28-2024 Color (U) Straw Yellow [facility] Urine glucose detectionOrder ed By: Jhonatan Maxwell on 09-28-2024 Glucose Ql (U) Normal mg/dl Normal [facility] Urine leukocyte esterase det ection by dipstickOrdered By: Jhonatan Maxwell on 09-28-2024 Leukocyte esterase Test strip Ql (U) 500 /ul High Negative [facility] Urine pHOrdered By: Jhonatan donahue on 09-28-2024 pH (U) 6.0 [pH] 5.0 - 8.0 [facility] Urine sediment bacteria coun t by microscopy (number/high power field)Ordered By: Jhonatan Maxwell on 09-28-2024 Bacteria LM.HPF (Urine sed) [#/Area] 3 /[HPF] None Seen [facility] Urine sodium measurement (mo les/volume)Ordered By: Michelle Gallardo on 09-28-2024 Sodium (U) [Moles/Vol] 79 mmol/L Not Establ. [facility] Urine specific gravity measu rementOrdered By: Jhonatan Maxwell on 09-28-2024 Specific gravity (U) [Rel density] 1.015 1.002-1.03 0 [facility] Urine urobilinogen measureme ntOrdered By: Jhonatan Maxwell on 09-28-2024 Urobilinogen Ql (U) Normal mg/dl Normal [facility] White blood cell (WBC) count Ordered By: Jhonatan aMxwell on 09-28-2024 WBC (Bld) [#/Vol] 7.6 10*3/uL 4.4-11.0 [facility] White blood cell countOrdere d By: Jhonatan Maxwell on 09-28-2024 White blood cell count >100 SEEN /hpf 0-5 [facility] CNOVon 09-22-2024 CNOV Office Visit (FAMPWS ) MARI LOPEZ ([id number]) 1940 F Date Time Provider Department 09/22/24 [...] CONDYLEANDPLATU MEDIALANDLAT COMPARTMENTS 1990 bilateral total knee s([place]) ARTHRP KNE CONDYLEANDPLATU MEDIALANDLAT COMPARTMENTS 10/24/2004 bilateral [...] reverse total shoulder. Dr. Klaus Omalley with [facility] Ortho Family History FAMILY HISTORY Problem Relation [...] daily. T (more content not included)... Normal [facility] CBC panel Auto (Bld)on 09-15 Erythrocyte distribution width (RBC) [Ratio] 15.7 % High 11.5-15.0 [facility] Comment on above: Order Comment: Speci men Type: BLOOD SPECIMENOrdering Facility: [facility] Address: [address] [place] [address] Performed By: #### 5 8410-2 ####[facility] [id number] [place] [address] [place] Hematocrit (Bld) [Volume fraction] 32.9 % Low 36.0-46.0 [facility] Comment on above: Order Comment: Speci men Type: BLOOD SPECIMENOrdering Facility: [facility] Address: [address] [place] [address] Performed By: #### 5 8410-2 ####[facility] [id number] [place] [address] [place] Hemoglobin (Bld) [Mass/Vol] 9.9 g/dL Low 11.5-15.5 [facility] Comment on above: Order Comment: Speci men Type: BLOOD SPECIMENOrdering Facility: [facility] Address: [address] [place] [address] Performed By: #### 5 8410-2 ####[facility] LABIA [id number] [place] [address] [place] MCH (RBC) [Entitic mass] 32.0 pg Normal 26.0-34.0 [facility] Comment on above: Order Comment: Speci men Type: BLOOD SPECIMENOrdering Facility: [facility] Address: [address] [place] [address] Performed By: #### 5 8410-2 ####[facility] LABIA [id number] [place] [address] [place] MCHC (RBC) [Mass/Vol] 30.1 g/dL Low 30.5-36.0 [facility] Comment on above: Order Comment: Speci men Type: BLOOD SPECIMENOrdering Facility: [facility] Address: [address] [place] [address] Performed By: #### 5 8410-2 ####[facility] [id number] [place] [address] [place] MCV (RBC) [Entitic vol] 106.5 fL High 80.0-100.0 [facility] Comment on above: Order Comment: Speci men Type: BLOOD SPECIMENOrdering Facility: [facility] Address: [address] [place] [address] Performed By: #### 5 8410-2 ####[facility] [id number] [place] [address] [place] Nucleated RBC (Bld) [#/Vol] 10*3/uL Normal <0.01 [facility] Comment on above: Order Comment: Speci men Type: BLOOD SPECIMENOrdering Facility: [facility] Address: [address] [place] [address] Performed By: #### 5 8410-2 ####[facility] [id number] [place] [address] [place] Platelet mean volume (Bld) [Entitic vol] 13.9 fL High 9.0-12.7 [facility] Comment on above: Order Comment: Speci men Type: BLOOD SPECIMENOrdering Facility: [facility] Address: [address] [place] [address] Performed By: #### 5 8410-2 ####[facility] [id number] [place] [address] [place] Platelets (Bld) [#/Vol] 248 10*3/uL Normal 150-400 [facility] Comment on above: Order Comment: Speci men Type: BLOOD SPECIMENOrdering Facility: [facility] Address: [address] [place] [address] Performed By: #### 5 8410-2 ####[facility] [id number] [place] [address] [place] RBC (Bld) [#/Vol] 3.09 10*6/uL Low 3.90-5.20 [facility] Comment on above: Order Comment: Speci men Type: BLOOD SPECIMENOrdering Facility: [facility] Address: [address] [place] [address] Performed By: #### 5 8410-2 ####[facility] [id number] [place] [address] [place] WBC (Bld) [#/Vol] 7.94 10*3/uL Normal 3.70-11.00 [facility] Comment on above: Order Comment: Speci men Type: BLOOD SPECIMENOrdering Facility: [facility] Address: [address] [place] [address] Performed By: #### 5 8410-2 ####[facility]IA [id number] [place] [id number] [place] CNOVon 09-15-2024 CNOV Office Visit (FAMPWS ) MARI LOPEZ ([id number]) 1940 F Date Time Provider Department 09/15/24 1:40 PM MICHAEL CARTER During your visit today, we recorded the following information about you: Pulse Blood pressure Weight 72/minute 112/67 105.7 kg Michael Carter, NAILER OPERATOR.ACCOUNTANT 09/15/2024 2:04 PM Signed Chief Complaint Patient [...] and thrombophlebitis of femoral vein (deep) (superficial) ([facility]) Unspecified sleep apnea Previous Surgical History PAST SURGICAL HISTORY Procedure Laterality Date ANESTHESIA HERNIA REPAIR LOWER ABDOMEN NOS 04/2004,05/11 gortex put in on 05/11 then taken out06/08 ARTHRP KNE CONDYLEANDPLATU MEDIALANDLAT COMPARTMENTS 1990 bilateral total knee s([place]) ARTHRP KNE CONDYLEANDPLATU MEDIALANDLAT COMPARTMENTS 10/24/2004 bilateral [...] reverse total shoulder. Dr. Klaus Omalley with [facility] Family History FAMILY HISTORY Problem Relation [...] COMPOUNDED PRESCRIPTI (more content not included)... Normal [facility] Comprehensive metabolic 2000 panelon 09-15-2024 Albumin [Mass/Vol] 3.4 g/dL Low 3.9-4.9 [facility] Comment on above: Order Comment: Speci men Type: BLOOD SPECIMENOrdering Facility: [facility] Address: [address] [place] [address] Performed By: #### 2 4323-8, 42520-4 ####[facility] LABCLIA [id number] [place] [address] [place] ALP [Catalytic activity/Vol] 114 U/L Normal 34-123 [facility] Comment on above: Order Comment: Speci men Type: BLOOD SPECIMENOrdering Facility: [facility] Address: [address] [place] [address] Performed By: #### 2 4323-8, 51781-5 ####[facility] LABCLIA [id number] [place] [id number] [place] ALT [Catalytic activity/Vol] 75 U/L High 7-38 [facility] Comment on above: Order Comment: Speci men Type: BLOOD SPECIMENOrdering Facility: [facility] Address: [address] [place] [address] Performed By: #### 2 4323-8, 60416-8 ####[facility] LABCLIA [id number] [place] [id number] [place] Anion gap [Moles/Vol] 13 mmol/L Normal 8-15 [facility] Comment on above: Order Comment: Speci men Type: BLOOD SPECIMENOrdering Facility: [facility] Address: [address] [place] [address] Performed By: #### 2 4323-8, 05990-4 ####[facility] LABCLIA [id number] [place] [address] [place] AST [Catalytic activity/Vol] 85 U/L High 13-35 [facility] Comment on above: Order Comment: Speci men Type: BLOOD SPECIMENOrdering Facility: [facility] Address: [address] [place] [address] Performed By: #### 2 4323-8, 93566-6 ####[facility] LABCLIA [id number] [place] [address] [place] Bilirubin [Mass/Vol] 0.2 mg/dL Normal 0.2-1.3 [facility] Comment on above: Order Comment: Speci men Type: BLOOD SPECIMENOrdering Facility: [facility] Address: [address] [place] [address] Performed By: #### 2 4323-8, 49856-4 ####[facility] LABCLIA [id number] [place] [id number] [place] Calcium [Mass/Vol] 8.8 mg/dL Normal 8.5-10.2 [facility] Comment on above: Order Comment: Speci men Type: BLOOD SPECIMENOrdering Facility: [facility] Address: [address] [place] [address] Performed By: #### 2 4323-8, 47781-9 ####[facility] LABCLIA [id number] [facility] [place] [id number] [place] Chloride [Moles/Vol] 111 mmol/L High 98-107 [facility] Comment on above: Order Comment: Speci men Type: BLOOD SPECIMENOrdering Facility: [facility] Address: [address] [place] [address] Performed By: #### 2 4323-8, 59534-3 ####[facility] LABCLIA [id number] [place] [id number] [place] CO2 [Moles/Vol] 18 mmol/L Low 22-30 [facility] Comment on above: Order Comment: Speci men Type: BLOOD SPECIMENOrdering Facility: [facility] Address: [address] [place] [address] Performed By: #### 2 4323-8, 81464-5 ####[facility] [id number] [place] [address] [place] Creatinine [Mass/Vol] 1.93 mg/dL High 0.58-0.96 [facility] Comment on above: Order Comment: Speci men Type: BLOOD SPECIMENOrdering Facility: [facility] Address: [address] [place] [address] Performed By: #### 2 4323-8, 14392-4 ####[facility] [id number] [address] [place] Creatinine and Glomerular filtration rate.predicted panel (S/P/Bld) 26 mL/min/1.73m??? Low >=60 [facility] Comment on above: Order Comment: Speci men Type: BLOOD SPECIMENOrdering Facility: [facility] Address: [address] [place] [address] Result Comment: Kayy mated Glomerular Filtration Rate [...] actual GFR. Performed By: #### 2 4323-8, 26653-5 ####[facility] [id number] [place] [id number] [place] Glucose [Mass/Vol] 85 mg/dL Normal 74-99 [facility] Comment on above: Order Comment: Speci men Type: BLOOD SPECIMENOrdering Facility: [facility] Address: [address] [place] [address] Result Comment: The [place] [employer] (ADA) provides guidance for cutoff [...] Standards of Medical Care in Diabetes 2016, [place] [employer]. Diabetes Care. 2016.39(Suppl 1). Performed By: #### 2 4323-8, 42065-5 ####[facility] [id number] [place] [address] [place] Potassium [Moles/Vol] 5.6 mmol/L High 3.7-5.1 [facility] Comment on above: Order Comment: Speci men Type: BLOOD SPECIMENOrdering Facility: [facility] Address: [address] [place] [address] Performed By: #### 2 4323-8, 73687-5 ####[facility] [id number] [place] [id number] [place] Protein [Mass/Vol] 6.2 g/dL Low 6.3-8.0 [facility] Comment on above: Order Comment: Speci men Type: BLOOD SPECIMENOrdering Facility: [facility] Address: [address] [place] [address] Performed By: #### 2 4323-8, 76637-7 ####[facility] LABIA [id number] [place] [address] [place] Sodium [Moles/Vol] 142 mmol/L Normal 136-144 [facility] Comment on above: Order Comment: Speci men Type: BLOOD SPECIMENOrdering Facility: [facility] Address: [address] [place] [address] Performed By: #### 2 4323-8, 29528-6 ####[facility] [id number] [place] [address] [place] Urea nitrogen [Mass/Vol] 49 mg/dL High 7-21 [facility] Comment on above: Order Comment: Speci men Type: BLOOD SPECIMENOrdering Facility: [facility] Address: [address] [place] [address] Performed By: #### 2 4323-8, 24714-0 ####[facility] [id number] [address] [place] NT-proBNP [facility] 09-15 Natriuretic peptide.B prohormone N-Terminal [Mass/Vol] 783 pg/mL High <450 [facility] Comment on above: Order Comment: Speci men Type: BLOOD SPECIMENOrdering Facility: [facility] Address: [address] [place] [address] Performed By: #### 2 4323-8, 41154-0 ####[facility] [id number] [place] [id number] [place] 09-14-2024 CNPN Telephone (FAMWS) MARI LOPEZ ([id number]) 1940 F Date Time Provider Department 09/14/24 [...] appointment times. Pt scheduled with Michael Carter ORTHODONTIC BAND MAKER. Analia Gracia RN Allergies As of Date: 09/14/2024 Noted Allergy Reaction BACTRIM (SULFAMETHOXAZOLE-TRIMETH*0 07/23/2016 4 - Hives Comments: Blisters: head to toe IBUPROFEN 11/08/2015 2 - Rash KEFZOL (CEFAZOLIN SODIUM) 08/09/2018 4 - Hives PEANUT 03/31/2023 10 - Anaphylaxis SULFA (SULFONAMIDE ANTIBIOTICS) 07/23/2016 4 - Hives 16 - Unknown Comments: Blisters: head to toe Date Reviewed: 09/04/2024 Reviewed by: Deacon Valdez, NAILER OPERATOR.ACCOUNTANT - Fully Assessed Reason for Visit: Results [...] [1003] 05/07/2005 07/12/2021 INJURY TRUNK SITE NEC [RPR4684] 01/16/2006 07/01/2007 Anemia in chronic kidney disease [...] [M47.816] 12/25/2021 (more content not included)... Normal [facility] [place] 09-12-2024 CNPN Telephone (FAMPWS) MARI LOPEZ ([id number]) 1940 F Date Time Provider Department 09/12/24 [...] MA 09/12/2024 2:44 PM Signed Pt notified. Alxe Lackey MA Allergies As of Date: 09/12/2024 Noted Allergy Reaction BACTRIM (SULFAMETHOXAZOLE-TRIMETH*0 07/23/2016 4 - Hives Comments: Blisters: head to toe IBUPROFEN 11/08/2015 2 - Rash KEFZOL (CEFAZOLIN SODIUM) 08/09/2018 4 - Hives PEANUT 03/31/2023 10 - Anaphylaxis SULFA (SULFONAMIDE ANTIBIOTICS) 07/23/2016 4 - Hives 16 - Unknown Comments: Blisters: head to toe Date Reviewed: 09/04/2024 Reviewed by: Deacon Valdez APRN.ACCOUNTANT - Fully Assessed Reason for Visit: Patient Question [1857] Orders [681] Primary Visit Diagnosis:Subacute cough [R05.2] Order(s):XR CHEST 2V FRONTAL/LAT [[id number]] Order #: [id number] FUTURE Prescriptions as of 09/12/2024 - doxycycline [...] [1003] 05/07/2005 07/12/2021 INJURY TRUNK SITE NEC [[id number]] 01/16/2006 07/01/2007 Anemia in chronic kidney disease [...] back pa (more content not included)... Normal [facility] XR CHEST 2V FRONTAL/LATon XR CHEST [...] clips are again noted. IMPRESSION: See result. Typewriter Repairer: CHEIKH Transcribe Date/Time: Sep 14 2024 12:53A Dictated by : LIBAN SALCEDO MD This examination was interpreted and the report reviewed and electronically signed by: LIBAN SALCEDO MD on Sep 14 2024 12:55AM EST [id number] Normal [facility] 09-07-2024 CNPN Telephone (FAMPWS) MARI LOPEZ ([id number]) 1940 F Date Time Provider Department 09/07/24 LIZY CAPONE FAMWS During your visit today, we recorded the following information about you: Josselin Baxter, KEVIN 09/07/2024 1:57 PM Signed Dorys with [facility] calling with pt update for [...] extend treatment or for any other orders. [phone]. KEVIN Escobar Mark D, MD 09/08/2024 3:55 PM Signed OK for continuation of both medications; Rxs sent to pharmacy MD Samia Masters Amanda, RN 09/08/2024 4:04 PM Signed Dorys with [facility] and Pt called and notified [...] Date Reviewed: 09/04/2024 Reviewed by: Deacon Valdez APRN.ACCOUNTANT - Fully Assessed Reason for Visit: Patient [...] NEC [IMO0 (more content not included)... Normal [facility] H AND P Exam - Surgicalon H&P Exam - Surgical [facility] MR/POSTOP.ANEon 09-06-2024 MR/POSTOP.ANE [facility] MR/[id number] 09-06-2024 MR/POSTOPAN2 [facility] Operative Reporton Operative Report [facility] CNPNon 09-05-2024 [facility] ([id number]) 1940 F Date Time Provider Department 09/05/24 [facility] During your visit today, we recorded [...] to stay on will need refilled to [facility]. Asking for this to be done BHUMIKA as she is almost out of medications. MANJEET Reina Mark D, MD 09/05/2024 2:36 PM Signed Med list reviewed and prescriptions sent to [facility]. May stop Eliquis and Protonix MD Ziyad Masters Kathryn, MA 09/05/2024 3:15 PM Signed Pt notified and voiced understanding. MANJEET Reina Sherrie, RN 09/07/2024 1:43 PM Signed Dorys with [facility] calling. Updated of eliquis and [...] Date Reviewed: 09/04/2024 Reviewed by: Deacon Valdez, NANCI.ACCOUNTANT - Fully Assessed Reason for Visit: Medication Question [0898] Primary Visit Diagnosis:Anemia in chronic kidney disease, unspecified CKD stage [N18.9, D63.1] Other Visit Diagnoses:Leg swelling [M79.89] Essential hypertension, benign [I10] Iron deficiency anemia due to chronic blood loss [D50.0] Hypothyroidism, acquired [E03.9] Seizures (HCC) [R56.9] Insomnia, unspecified type [G47.00] CKD (chronic kidney disease) stage 4, GFR 15-29 ml/min ([facility]) [N18.4] Hyperlipidemia LDL goal <100 [E78.5] [...] polyethylene glycol (more content not included)... Normal [facility] Neurology Visit Reporton Neurology Visit Report Normal [facility] CNOVon 09-04-2024 CNOV Office Visit (UCWSTR ) MARI LOPEZ ([id number]) 1940 F Date Time Provider Department 09/04/24 2:30 PM DEACON VALDEZ [facility] During your visit today, we recorded the following information about you: Temperature Pulse Respiration Blood pressure 98.5 degrees 74/minute 18/minute 128/76 Weight 105.7 kg Deacon Valdez APRN.ACCOUNTANT 09/04/2024 2:51 PM Signed This note was created using [employer] Mills[employer]. Subjective Mari Lopez is a 84 year old female. HPI Patient presents today complaining of some shortness of breath and wheezing which has been ongoing for the last 2 weeks. She denies any fevers. She notes that she was recently discharged from [facility] after having been hospitalized for sepsis. [...] - BENZONATATE 100 MG CAPSULE Deacon Valdez APRN.ACCOUNTANT Referring Provider: SELF [200] Allergies As of Date: 09/04/2024 Noted Allergy Reaction BACTRIM (SULFAMETHOXAZOLE-TRIMETH*0 07/23/2016 4 - Hives Comments: Blisters: head to toe IBUPROFEN 11/08/2015 2 - Rash KEFZOL (CEFAZOLIN SODIUM) 08/09/2018 4 - Hives PEANUT 03/31/2023 10 - Anaphylaxis SULFA (SULFONAMIDE ANTIBIOTICS) 07/23/2016 4 - Hives 16 - Unknown Comments: Blisters: head to toe Date Reviewed: 09/04/2024 Reviewed by: Deacon Valdez, NANCI.ACCOUNTANT - Fully Assessed Reason for Visit: Cough [...] by mout (more content not included)... Normal [facility] MR/PAT.Waqar 09-02-2024 MR/PAT.KENTRELL [facility] MR/PAT.KENTRELL [facility] [place] 08-30-2024 [facility] MARI LOPEZ ([id number]) 1940 F Date Time Provider Department 08/30/24 LIZY CAPONEFARRUKH During your visit today, we recorded the following information about you: Lora Najera RN 08/30/2024 10:39 AM Signed Lora from [facility] calls and reports that patient started with home health services. Lora makes note of a couple different things: Patient is on iron tablets which is contradicted for someone with peanut allergies. Patient has been taking medication with no issues. Patient had discharged from [facility] with oxycodone orders of 5 mg every [...] detailed voicemail notifying Lora from [facility] of providers message. Clinic phone number was left in case she had any questions. Analia Gracai RN Allergies As of Date: 08/30/2024 Noted [...] [K43.9] 03/26 (more content not included)... Normal [facility] [place] 08-25-2024 CJN Telephone (FAMPWS) MARI LOPEZ ([id number]) 1940 F Date Time Provider Department 08/25/24 LIZY CAPONE FAMPWS During your visit today, we recorded the following information about you: Minna Hinton, RN 08/25/2024 12:31 PM Signed Miryam intake coordinatior with [facility] calling in to say pt is being discharged from [facility] today. She has been referred to for [...] [1003] 05/07/2005 07/12/2021 INJURY TRUNK SITE NEC [[id number]] 01/16/2006 07/01/2007 Anemia in chronic kidney disease [...] spondylosis [M47 (more content not included)... [facility] ([id number]) 1940 F Date Time Provider Department 08/25/24 LIZY CAPONE FAMPWS During your visit today, we recorded the following information about you: Josselin Baxter RN 08/25/2024 9:33 AM Signed Krystle Villarreal CNP a provider at [facility] is calling to state that she [...] [1003] 05/07/2005 07/12/2021 INJURY TRUNK SITE NEC [[id number]] 01/16/2006 07/01/2007 Anemia in chronic kidney disease [...] disease, unspecif*08/22/2024 (more content not included)... Normal [facility] Absolute lymphocyte countOrd ered By: Gustavo Castorena on 08-22-2024 Lymphocytes Auto (Unsp spec) [#/Vol] 1.73 10*3/uL 0.83-4.51 [facility] Anion gap in Serum or Plasma Ordered By: Gustavo Castorena on 08-22-2024 Anion gap [Moles/Vol] 12 mmol/L 5-15 [facility] Automated lymphocyte count a s percentage of total leukocytesOrdered By: Gustavo Castorena on 08-22-2024 Lymphocytes/100 WBC Auto (Unsp spec) 34.5 % [facility] BUN/creatinine ratioOrdered By: Gustavo Brownleeevelynechela on 08-22-2024 Urea nitrogen/Creatinine [Mass ratio] 20.6 mg/mg High 10-20 [facility] Bacteria Ur Culton Bacteria identified [...] , Intermediate >32 , Resistant >64 Abnormal [facility] Comment on above: Performed By: #### 6 30-4, 30678-2 ####[facility] LABCLIA [id number] [address] [place] Basophil percentageOrdered B y: Gustavo Castorena on 08-22-2024 Basophils/100 WBC (Bld) 0.6 % 0-1 [facility] CBC panel Auto (Bld)on 08-22 Erythrocyte distribution width (RBC) [Ratio] 16.4 % High 11.5 - 15.0 % [facility] Hematocrit (Bld) [Volume fraction] 31.1 % Low 36.0 - 46.0 % [facility] Hemoglobin (Bld) [Mass/Vol] 9.4 g/dL Low 11.5 - 15.5 g/dL [facility] Interpretation and review of laboratory results Abnormal [facility] MCH (RBC) [Entitic mass] 31.4 pg 26.0 - 34.0 pg [facility] MCHC (RBC) [Mass/Vol] 30.2 g/dL Low 30.5 - 36.0 g/dL [facility] MCV (RBC) [Entitic vol] 104 fL High 80.0 - 100.0 fL [facility] Nucleated RBC (Bld) [#/Vol] NINF [facility] Platelet mean volume (Bld) [Entitic vol] 13.1 fL High 9.0 - 12.7 fL [facility] Platelets (Bld) [#/Vol] 233 10*3/uL [facility] RBC (Bld) [#/Vol] 2.99 10*6/uL Low 3.90 - 5.20 m/uL [facility] WBC (Bld) [#/Vol] 7.12 10*3/uL [facility] Erythrocyte distribution width (RBC) [Ratio] 16.4 % High 11.5-15.0 [facility] Comment on above: Order Comment: Speci men Type: BLOOD SPECIMENOrdering Facility: [facility] Address: [address] [place] [address] Performed By: #### 5 8410-2 ####[facility] LABIA [id number] [place] [address] [place] Hematocrit (Bld) [Volume fraction] 31.1 % Low 36.0-46.0 [facility] Comment on above: Order Comment: Speci men Type: BLOOD SPECIMENOrdering Facility: [facility] Address: [address] [place] [address] Performed By: #### 5 8410-2 ####[facility] LABIA [id number] [place] [address] [place] Hemoglobin (Bld) [Mass/Vol] 9.4 g/dL Low 11.5-15.5 [facility] Comment on above: Order Comment: Speci men Type: BLOOD SPECIMENOrdering Facility: [facility] Address: [address] [place] [address] Performed By: #### 5 8410-2 ####[facility] LABIA [id number] [place] [address] [place] MCH (RBC) [Entitic mass] 31.4 pg Normal 26.0-34.0 [facility] Comment on above: Order Comment: Speci men Type: BLOOD SPECIMENOrdering Facility: [facility] Address: [address] [place] [address] Performed By: #### 5 8410-2 ####[facility] LABIA [id number] [place] [address] [place] MCHC (RBC) [Mass/Vol] 30.2 g/dL Low 30.5-36.0 [facility] Comment on above: Order Comment: Speci men Type: BLOOD SPECIMENOrdering Facility: [facility] Address: [address] [place] [address] Performed By: #### 5 8410-2 ####[facility] LABIA [id number] [place] [address] [place] MCV (RBC) [Entitic vol] 104.0 fL High 80.0-100.0 [facility] Comment on above: Order Comment: Speci men Type: BLOOD SPECIMENOrdering Facility: [facility] Address: [address] [place] [address] Performed By: #### 5 8410-2 ####[facility] LABIA [id number] [place] [address] [place] Nucleated RBC (Bld) [#/Vol] 10*3/uL Normal <0.01 [facility] Comment on above: Order Comment: Speci men Type: BLOOD SPECIMENOrdering Facility: [facility] Address: [address] [place] [address] Performed By: #### 5 8410-2 ####[facility] LABIA [id number] [place] [address] [place] Platelet mean volume (Bld) [Entitic vol] 13.1 fL High 9.0-12.7 [facility] Comment on above: Order Comment: Speci men Type: BLOOD SPECIMENOrdering Facility: [facility] Address: [address] [place] [address] Performed By: #### 5 8410-2 ####[facility] LABIA [id number] [place] [address] [place] Platelets (Bld) [#/Vol] 233 10*3/uL Normal 150-400 [facility] Comment on above: Order Comment: Speci men Type: BLOOD SPECIMENOrdering Facility: [facility] Address: [address] [place] [address] Performed By: #### 5 8410-2 ####[facility] LABCLIA [id number] [place] [address] [place] RBC (Bld) [#/Vol] 2.99 10*6/uL Low 3.90-5.20 [facility] Comment on above: Order Comment: Speci men Type: BLOOD SPECIMENOrdering Facility: [facility] Address: [address] [place] [address] Performed By: #### 5 8410-2 ####[facility] LABCLIA [id number] [place] [address] [place] WBC (Bld) [#/Vol] 7.12 10*3/uL Normal 3.70-11.00 [facility] Comment on above: Order Comment: Speci men Type: BLOOD SPECIMENOrdering Facility: [facility] Address: [address] [place] [address] Performed By: #### 5 8410-2 ####[facility] LABIA [id number] [place] [address] [place] CNOVon 08-22-2024 CNOV Office Visit (FAMPWS ) MARI LOPEZ ([id number]) 1940 F Date Time Provider Department 08/22/24 [...] pt was re-admitted back in April into [facility] ICU for sepsis and kidney failure. Pt was intubated while admitted. She was then life flighted to [facility] ICU to see Neurology on 05/04/24 and discharged on 05/18/24 to a Rehab Facility, staying until 06/10/24. Pt was then d[place]c [place] rehab on 06/10/24 and has not yet [...] of seizure x [address] [facility]. Pt notes she had 3 seizures while her flight to [facility]. Is scheduled with [facility] in September. Pt reports today that she is supposed to be on medication for 6 months. Nephro - Follows with Dr. Casper. Hx of CKD. When in the hospital pt had kidney failure. Did not require dialysis. Cardio - Follows with [facility], Dr. Jackson. Hx of heart failure, and PE. Pt takes Eliquis 5 mg bid, ASA 81 mg once daily, Zestoretic 10-12.5 mg once daily, Lasix 40 mg once daily and Toprol XL 50 mg once daily. Pulm - Hx of pulmonary issues. Schedule with [facility], did see [facility]. Anemia - [...] reports an incident that occurred while at [place], where she was trying to get into her car, Therapist did not lock her wheelchair. She hit her right lower leg on the running board of her car causing a hematoma. Following with Dr. Lomax, has had to have area cleaned out a couple of times. Wound Center put in an order for [facility] to change dressing 3x per [...] CONDYLEANDPLATU MEDIALANDLAT COMPARTMENTS 1990 bilateral total knee s([place]) ARTHRP KNE CONDYLEANDPLATU MEDIALANDLAT COMPARTMENTS 10/24/2004 bilateral [...] reverse total shoulder. Dr. Klaus Omalley with [facility] Family History FAMILY HISTORY Problem Relation Age of Onset Cancer Mother ovarian Patient Allergies ALLERGIES Allergen Reactions Bactrim [Sulfametho* Hives Blisters: he (more content not included)... Normal [facility] Carbon dioxide, total [Moles /volume] in Central venous bloodOrdered By: Gustavo Castorena on 08-22-2024 CO2 [Moles/Vol] 18.6 mmol/L Low 21.0-32.0 [facility] Chloride assayOrdered By: Felix osbaldo Bradifrah on 08-22-2024 Chloride [Moles/Vol] 113 mmol/L High 98-108 [facility] Comprehensive metabolic 2000 panelon 08-22-2024 Albumin [Mass/Vol] 3.5 g/dL Low 3.9-4.9 [facility] Comment on above: Order Comment: Speci men Type: BLOOD SPECIMENOrdering Facility: [facility] Address: [address] [place] [address] Performed By: #### 2 4323-8, 59185-1, 3024-7, 3016-3 ####[facility] LABCLIA [id number] [place] [address] [place] ALP [Catalytic activity/Vol] 87 U/L Normal 34-123 [facility] Comment on above: Order Comment: Speci men Type: BLOOD SPECIMENOrdering Facility: [facility] Address: [address] [place] [address] Performed By: #### 2 4323-8, 57202-5, 3024-7, 3016-3 ####[facility] LABCLIA [id number] [place] [address] [place] ALT [Catalytic activity/Vol] 20 U/L Normal 7-38 [facility] Comment on above: Order Comment: Speci men Type: BLOOD SPECIMENOrdering Facility: [facility] Address: [address] [place] [address] Performed By: #### 2 4323-8, 11781-3, 3024-7, 3016-3 ####[facility] LABCLIA [id number] [place] [id number] [place] Anion gap [Moles/Vol] 12 mmol/L Normal 8-15 [facility] Comment on above: Order Comment: Speci men Type: BLOOD SPECIMENOrdering Facility: [facility] Address: [address] [place] [address] Performed By: #### 2 4323-8, 37765-8, 3024-7, 3016-3 ####[facility] LABCLIA [id number] [place] [id number] [place] AST [Catalytic activity/Vol] 26 U/L Normal 13-35 [facility] Comment on above: Order Comment: Speci men Type: BLOOD SPECIMENOrdering Facility: [facility] Address: [address] [place] [address] Performed By: #### 2 4323-8, 54143-0, 3023-7, 6-3 ####[facility] LABIA [id number] [place] [address] [place] Bilirubin [Mass/Vol] 0.2 mg/dL Normal 0.2-1.3 [facility] Comment on above: Order Comment: Speci men Type: BLOOD SPECIMENOrdering Facility: [facility] Address: [address] [place] [address] Performed By: #### 2 4323-8, 61874-9, 3023-7, 6-3 ####[facility] LABCLIA [id number] [place] [id number] [place] Calcium [Mass/Vol] 8.7 mg/dL Normal 8.5-10.2 [facility] Comment on above: Order Comment: Speci men Type: BLOOD SPECIMENOrdering Facility: [facility] Address: [address] [place] [address] Performed By: #### 2 4323-8, 02305-5, 3024-7, 3016-3 ####[facility] LABCLIA [id number] [place] [id number] [place] Chloride [Moles/Vol] 113 mmol/L High 98-107 [facility] Comment on above: Order Comment: Speci men Type: BLOOD SPECIMENOrdering Facility: [facility] Address: [address] [place] [address] Performed By: #### 2 4323-8, 08381-8, 3024-7, 3016-3 ####[facility] LABCLIA [id number] [place] [address] [place] CO2 [Moles/Vol] 17 mmol/L Low 22-30 [facility] Comment on above: Order Comment: Speci men Type: BLOOD SPECIMENOrdering Facility: [facility] Address: [address] [place] [address] Performed By: #### 2 4323-8, 51293-2, 3024-7, 3016-3 ####[facility] LABIA [id number] [place] [address] [place] Creatinine [Mass/Vol] 1.77 mg/dL High 0.58-0.96 [facility] Comment on above: Order Comment: Speci men Type: BLOOD SPECIMENOrdering Facility: [facility] Address: [address] [place] [address] Performed By: #### 2 4323-8, 49081-9, 3024-7, 3016-3 ####[facility] LABIA [id number] [place] [address] [place] Creatinine and Glomerular filtration rate.predicted panel (S/P/Bld) 28 mL/min/1.73m??? Low >=60 [facility] Comment on above: Order Comment: Speci men Type: BLOOD SPECIMENOrdering Facility: [facility] Address: [address] [place] [address] Result Comment: Kayy mated Glomerular Filtration Rate [...] actual GFR. Performed By: #### 2 4323-8, 88769-0, 3023-7, 3015-3 ####[facility] LABCLIA [id number] [facility] [id number] [address] [place] Glucose [Mass/Vol] 73 mg/dL Low 74-99 [facility] Comment on above: Order Comment: Lea monae Type: BLOOD SPECIMENOrdering Facility: [facility] Address: [address] [place] [address] Result Comment: The [place] Diabetes [employer] (ADA) provides guidance for cutoff [...] Standards of Medical Care in Diabetes 2016, [place] [employer]. Diabetes Care. 2016.39(Suppl 1). Performed By: #### 2 4323-8, 14009-0, 7, 3015-3 ####[facility] LABCLIA [id number] [facility] [id number] [place] [address] [place] Potassium [Moles/Vol] 3.7 mmol/L Normal 3.7-5.1 [facility] Comment on above: Order Comment: Lea monae Type: BLOOD SPECIMENOrdering Facility: [facility] Address: [address] [place] [address] Performed By: #### 2 4323-8, 84457-0, 3023-7, 6-3 ####[facility] LABCLIA [id number] [facility] [id number] [address] [place] Protein [Mass/Vol] 6.2 g/dL Low 6.3-8.0 [facility] Comment on above: Order Comment: Speci men Type: BLOOD SPECIMENOrdering Facility: [facility] Address: [address] [place] [address] Performed By: #### 2 4323-8, 19363-4, 3024-7, 3016-3 ####[facility] LABCLIA [id number] [place] [id number] [place] Sodium [Moles/Vol] 142 mmol/L Normal 136-144 [facility] Comment on above: Order Comment: Speci men Type: BLOOD SPECIMENOrdering Facility: [facility] Address: [address] [place] [address] Performed By: #### 2 4323-8, 38367-1, 3024-7, 3016-3 ####[facility] LABCLIA [id number] [place] [address] [place] Urea nitrogen [Mass/Vol] 37 mg/dL High 7-21 [facility] Comment on above: Order Comment: Speci men Type: BLOOD SPECIMENOrdering Facility: [facility] Address: [address] [place] [address] Performed By: #### 2 4323-8, 84396-6, 3024-7, 3016-3 ####[facility] LABIA [id number] [place] [id number] [place] Eosinophil percentageOrdered By: Gustavo Castorena on 08-22-2024 Eosinophils/100 WBC (Bld) 5.4 % High 0-5 [facility] Erythrocyte distribution wid th ratioOrdered By: Gustavo Castorena on 08-22-2024 Erythrocyte distribution width (RBC) [Ratio] 16.4 % High 11.6-14.6 [facility] Erythrocyte distribution wid th standard deviationOrdered By: Gustavo Castorena on 08-22-2024 Erythrocyte distribution width (RBC) [Ratio] 61.6 fl High 35.1-43.9 [facility] Glomerular filtration rate ( GFR) estimation/1.73 sq m using serum, plasma, or whole bOrdered By: Gustavo Castorena on 08-22-2024 GFR/1.73 sq M.predicted among non-blacks MDRD (S/P/Bld) [Vol rate/Area] 27 mL/min/{1.73_m2} Low >60 [facility] Hematocrit Auto (Bld) [Volum e fraction]Ordered By: Gustavo Castorena on 08-22-2024 Hematocrit (Bld) [Volume fraction] 28.3 % Low 37-47 [facility] Hemoglobin measurementOrdere d By: Gustavo Castorena on 08-22-2024 Hemoglobin (Bld) [Mass/Vol] 8.7 g/dL Low 12.0-15.0 [facility] Immature granulocytes/100 WB C Auto (Bld)Ordered By: Gustavo Castorena on 08-22-2024 Immature granulocytes/100 WBC (Bld) 0.400 % 0.0-0.9 [facility] Lipid 1996 panelon Cholesterol [Mass/Vol] 114 mg/dL Normal <200 [facility] Comment on above: Order Comment: Lea monae Type: BLOOD SPECIMENOrdering Facility: [facility] Address: [address] [place] [address] Result Comment: <200 mg/dL, Desirable 200-239 mg/dL, Borderline high >239 mg/dL, High Performed By: #### 2 4323-8, 44971-1, 3024-7, 3016-3 ####[facility] LABCLIA [id number] [place] [address] [place] Cholesterol in HDL [Mass/Vol] 37 mg/dL Low >39 [facility] Comment on above: Order Comment: Lea monae Type: BLOOD SPECIMENOrdering Facility: [facility] Address: [address] [place] [address] Result Comment: 40-5 9 mg/dL, Acceptable >59 mg/dL, High: Negative risk factor for coronary heart disease <40 mg/dL, Low: Positive risk factor for coronary heart disease Performed By: #### 2 4323-8, 57128-0, 4-7, 3015-3 ####[facility] LABCLIA [id number] [address] [address] [place] Cholesterol in LDL [Mass/Vol] 57 mg/dL Normal <100 [facility] Comment on above: Order Comment: Lea dov Type: BLOOD SPECIMENOrdering Facility: [facility] Address: [address] [place] [address] Result Comment: <100 mg/dL, Optimal 100-129 mg/dL, Near optimal/above optimal 130-159 mg/dL, Borderline high 160-189 mg/dL, High >189 mg/dL, Very high Secondary prevention optimal LDL Cholesterol levels are recommended to be <70 mg/dL LDL cholesterol is calculated using the Otoole-NIH equation. Performed By: #### 2 4323-8, 39190-2, 3023-10, 3 ####[facility] [id number] [address] [address] [place] Cholesterol in LDL/Cholesterol in HDL [Mass ratio] 1.54 {ratio} Normal <2.54 [facility] Comment on above: Order Comment: Lea dov Type: BLOOD SPECIMENOrdering Facility: [facility] Address: [address] [place] [address] Result Comment: Refe rence: 1. National Cholesterol Education Program ATP III Guideline At-A-Glance Quick Desk Reference: National Heart, Lung, and Blood [place]. National Institutes of Health. 2001: NIH Publication No. 01-3305. 2. An International Atherosclerosis Society position paper: global recommendations for the management of dyslipidemia: executive summary, Atherosclerosis. 2014: 232(2):410-413. Performed By: #### 2 4323-8, 97130-7, 3023-7, 3015-3 ####[facility]CL[facility] [id number] [address] [address] [place] Cholesterol in VLDL [Mass/Vol] 16 mg/dL Normal <30 [facility] Comment on above: Order Comment: Speci men Type: BLOOD SPECIMENOrdering Facility: [facility] Address: [address] [id number] Performed By: #### 2 4323-8, 59027-6, 3023-10, 3015-3 ####[facility] [id number] [address] [address] [place] Cholesterol non HDL [Mass/Vol] 77 mg/dL Normal <130 [facility] Comment on above: Order Comment: Speci men Type: BLOOD SPECIMENOrdering Facility: [facility] Address: [address] [place] [address] Result Comment: <130 mg/dL, Optimal 130-159 mg/dL, Near optimal/above optimal 160-189 mg/dL, Borderline high 190-219 mg/dL, High >219 mg/dL, Very high Secondary prevention optimal non HDL Cholesterol levels are recommended to be <100 mg/dL Performed By: #### 2 4323-8, 92151-2, 3023-10, 3015-3 ####[facility] [id number] [address] [address] [place] Cholesterol.total/Chol esterol in HDL [Mass ratio] 3.08 {ratio} Normal <5.10 [facility] Comment on above: Order Comment: Speci men Type: BLOOD SPECIMENOrdering Facility: [facility] Address: [address] [id number] Performed By: #### 2 4323-8, 82967-1, 3023-10, 3 ####[facility] [id number] [address] [address] [place] FASTING TIME 6 hrs Normal [facility] Comment on above: Order Comment: Speci men Type: BLOOD SPECIMENOrdering Facility: [facility] Address: [address] [id number] Performed By: #### 2 4323-8, 42534-5, 3023-, 3015-3 ####[facility]CLIA [id number] [place] [address] [place] Triglyceride [Mass/Vol] 108 mg/dL Normal <150 [facility] Comment on above: Order Comment: Speci men Type: BLOOD SPECIMENOrdering Facility: [facility] Address: [address] [facility] [place] [address] Result Comment: <150 mg/dL, Normal 150-199 mg/dL, Borderline high 200-499 mg/dL, High >499 mg/dL, Very high Performed By: #### 2 4323-8, 93641-6, 3024-7, 3016-3 ####[facility] [id number] [address] [place] MCV (mean corpuscular volume ) determinationOrdered By: Gustavo Castorena on 08-22-2024 MCV (RBC) [Entitic vol] 103.3 fL High 81-99 [facility] Mean corpuscular hemoglobin (MCH) determinationOrdered By: Gustavo Castorena on 08-22-2024 MCH (RBC) [Entitic mass] 31.8 pg 27.0-32.0 [facility] Monocyte percentageOrdered B y: Gustavo Castorena on 08-22-2024 Monocytes/100 WBC (Bld) 7.8 % 0-10 [facility] Neutrophil percentageOrdered By: Gustavo Castorena on 08-22-2024 Neutrophils/100 WBC (Bld) 51.3 % 47-70 [facility] Platelet countOrdered By: Felix Castorena on 08-22-2024 Platelets (Bld) [#/Vol] 193 10*3/uL 150-450 [facility] Potassium measurement (mass/ volume)Ordered By: Gustavo Castorena on 08-22-2024 Potassium (Unsp spec) [Mass/Vol] 3.5 mmol/L 3.3-5.1 [facility] RBC Auto (Bld) [#/Vol]Ordere d By: Gustavo Castorena on 08-22-2024 RBC (Bld) [#/Vol] 2.74 10*6/uL Low 4.2-5.4 [facility] Serum creatinine measurement (mass/volume)Ordered By: Gustavo Castorena on 08-22-2024 Creatinine [Mass/Vol] 1.86 mg/dL High 0.70-1.20 [facility] Serum glucose measurement (m ass/volume)Ordered By: Gustavo Castorena on 08-22-2024 Glucose [Mass/Vol] 79 mg/dL 70-99 [facility] Serum or plasma calcium farheen urement (mass/volume)Ordered By: Gustavo Castorena on 08-22-2024 Calcium [Mass/Vol] 8.4 mg/dL 7.6-11.0 [facility] Serum or plasma urea nitroge n measurement (mass/volume)Ordered By: Gustavo Castorena on 08-22-2024 Urea nitrogen [Mass/Vol] 38 mg/dL High 4-19 [facility] Sodium levelOrdered By: Sharri Castorena on 08-22-2024 Sodium [Moles/Vol] 143 mmol/L 133-145 [facility] T4 Free SerPl-mCncon 025 Free T4 [Mass/Vol] 1.4 ng/dL Normal 0.9-1.7 [facility] Comment on above: Order Comment: Speci men Type: BLOOD SPECIMENOrdering Facility: [facility] Address: [address] [place] [address] Performed By: #### 2 4323-8, 22086-8, 3023-7, 6-3 ####[facility] [id number] [address] [address] [place] TSH SerPl-aCncon 08-22-2024 TSH Qn 3.360 m[IU]/L Normal 0.270-4.20 0 [facility] Comment on above: Order Comment: Speci men Type: BLOOD SPECIMENOrdering Facility: [facility] Address: [address] [place] [address] Performed By: #### 2 4323-8, 40389-9, 3023-7, 3016-3 ####[facility]CL[facility] [id number] [place] [address] [place] Urinalysis complete panel (U )on 08-22-2024 Bacteria uL uL High - 941 uL [facility] Bilirubin Ql (U) Negative Negative [facility] Clarity (Unsp spec) Clear Clear [facility] Color (U) Yellow Yellow [facility] Epithelial cells LM.HPF (Urine sed) [#/Area] None Seen /HPF [facility] Glucose Test strip (U) [Mass/Vol] Negative Negative [facility] Hemoglobin Ql (U) Negative Negative [facility] Hyaline casts (Urine sed) [#/Area] 1-3 /LPF Abnormal 0 /LPF [facility] Interpretation and review of laboratory results Abnormal [facility] Ketones Ql (U) Negative Negative [facility] Leukocyte esterase Test strip Ql (U) 2+ Abnormal Negative [facility] Nitrite Ql (U) Negative Negative [facility] pH (U) 5.5 [pH] NINF - 8.5 [facility] Protein (U) [Mass/Vol] Negative Negative [facility] RBC LM.HPF (Urine sed) [#/Area] 0-2 /HPF 0-2 /HPF [facility] Specific gravity (U) [Rel density] 1.01 1.005 - 1.030 [facility] Urobilinogen Ql (U) 0.2 EU/dL 0.2-1.0 EU/dL [facility] WBC LM.HPF (Urine sed) [#/Area] 11-20 /HPF Abnormal 0-5 /HPF [facility] This test was iglesia esteban and its performance characteristics determined by [facility]'s Gonzalo JLuis Fernando [facility] Pathology and Laboratory Medicine [place] ([facility]). It has not been cleared or approved by the FDA. [facility] is regulated under CLIA as qualified to perform high-complexity testing. This test is used for clinical purposes. It should not be regarded as investigational or for research. [facility] BACTERIA UL >9821 High Negative [facility] Comment on above: Order Comment: Speci men Type: URINE SPECIMENOrdering Facility: [facility] Address: [address] [place] [address] [place] [address] Performed By: #### 6 30-4, 36907-4 ####[facility] [id number] [facility] [address] [place] [address] [place] Bilirubin Ql (U) Negative Normal Negative [facility] Comment on above: Order Comment: Speci men Type: URINE SPECIMENOrdering Facility: [facility] Address: [address] [place] [address] Performed By: #### 6 30-4, 68953-6 ####[facility] [id number] [address] [place] [address] [place] Clarity (Unsp spec) Clear Normal Clear [facility] Comment on above: Order Comment: Speci men Type: URINE SPECIMENOrdering Facility: [facility] Address: [address] [place] [address] Performed By: #### 6 30-4, 90320-2 ####[facility]CL[facility] [id number] [address], [facility] [address] [place] [facility] Color (U) Yellow Normal Yellow [facility] Comment on above: Order Comment: Speci men Type: URINE SPECIMENOrdering Facility: [facility] Address: [address] [place] [address] Performed By: #### 6 30-4, 51217-3 ####[facility] [id number] [address], [facility] [address] [place] Epithelial cells LM.HPF (Urine sed) [#/Area] None Seen Normal [facility] Comment on above: Order Comment: Speci men Type: URINE SPECIMENOrdering Facility: [facility] Address: [address] [place] [address] Performed By: #### 6 30-4, 42942-3 ####[facility] [id number] [address] [place] [address] [place] Glucose Test strip (U) [Mass/Vol] Negative Normal Negative [facility] Comment on above: Order Comment: Speci men Type: URINE SPECIMENOrdering Facility: [facility] Address: [address] [place] [address] Performed By: #### 6 30-4, 07911-9 ####[facility]CL[facility] [id number] [address] [address] [place] Hemoglobin Ql (U) Negative Normal Negative [facility] Comment on above: Order Comment: Speci men Type: URINE SPECIMENOrdering Facility: [facility] Address: [address] [place] [address] Performed By: #### 6 30-4, 10920-9 ####[facility]CLIA [id number] [place] [address] [place] Hyaline casts (Urine sed) [#/Area] 1-3 /LPF Abnormal 0 /LPF [facility] Comment on above: Order Comment: Speci men Type: URINE SPECIMENOrdering Facility: [facility] Address: [address] [place] [address] Performed By: #### 6 30-4, 95929-2 ####[facility]CLIA [id number] [place] [address] [place] Ketones Ql (U) Negative Normal Negative [facility] Comment on above: Order Comment: Speci men Type: URINE SPECIMENOrdering Facility: [facility] Address: [address] [place] [address] Performed By: #### 6 30-4, 57365-0 ####[facility]CL[facility] [id number] [address] [address] [place] Leukocyte esterase Test strip Ql (U) 2+ Abnormal Negative [facility] Comment on above: Order Comment: Speci men Type: URINE SPECIMENOrdering Facility: [facility] Address: [address] [place] [address] Performed By: #### 6 30-4, 71158-9 ####[facility]CL[facility] [id number] [address] [place] [address] [place] Nitrite Ql (U) Negative Normal Negative [facility] Comment on above: Order Comment: Speci men Type: URINE SPECIMENOrdering Facility: [facility] Address: [address] [place] [address] Performed By: #### 6 30-4, 73993-8 ####[facility] [id number] [address] [place] [address] [place] pH (U) 5.5 [pH] Normal <8.5 [facility] Comment on above: Order Comment: Speci men Type: URINE SPECIMENOrdering Facility: [facility] Address: [address] [place] [address] Performed By: #### 6 30-4, 62387-2 ####[facility] LABIA [id number] [address], [place] [address] [place] Protein (U) [Mass/Vol] Negative Normal Negative [facility] Comment on above: Order Comment: Speci men Type: URINE SPECIMENOrdering Facility: [facility] Address: [address] [place] [address] Performed By: #### 6 30-4, 35834-7 ####[facility] LABIA [id number] [address] [place] [address] [place] RBC LM.HPF (Urine sed) [#/Area] 0-2 /HPF Normal 0-2 /HPF [facility] Comment on above: Order Comment: Speci men Type: URINE SPECIMENOrdering Facility: [facility] Address: [address] [place] [address] Performed By: #### 6 30-4, 63751-9 ####[facility] LABIA [id number] [address] [place] [address] [place] Specific gravity (U) [Rel density] 1.010 Normal 1.005-1.03 0 [facility] Comment on above: Order Comment: Speci men Type: URINE SPECIMENOrdering Facility: [facility] Address: [address] [place] [address] Performed By: #### 6 30-4, 44933-5 ####[facility] LABIA [id number] [place] [address] [place] Urobilinogen Ql (U) 0.2 EU/dL Normal 0.2-1.0 EU/dL [facility] Comment on above: Order Comment: Speci men Type: URINE SPECIMENOrdering Facility: [facility] Address: [address] [place] [address] Performed By: #### 6 30-4, 20275-1 ####[facility] LABIA [id number] [place] [address] [place] WBC LM.HPF (Urine sed) [#/Area] 11-20 /HPF Abnormal 0-5 /HPF [facility] Comment on above: Order Comment: Speci men Type: URINE SPECIMENOrdering Facility: [facility] Address: [address] [place] [address] Performed By: #### 6 30-4, 79888-4 ####[facility] LABIA [id number] [place] [address] [place] White blood cell (WBC) count Ordered By: Gustavo Castorena on 08-22-2024 WBC (Bld) [#/Vol] 5.0 10*3/uL 4.4-11.0 [facility] Absolute lymphocyte countOrd ered By: Gustavo Castorena on 08-18-2024 Lymphocytes Auto (Unsp spec) [#/Vol] 1.57 10*3/uL 0.83-4.51 [facility] Anion gap in Serum or Plasma Ordered By: Gustavo Castorena on 08-18-2024 Anion gap [Moles/Vol] 10 mmol/L 08-18 [facility] Automated lymphocyte count a s percentage of total leukocytesOrdered By: Gustavo Castorena on 08-18-2024 Lymphocytes/100 WBC Auto (Unsp spec) 33.2 % 19-41 [facility] BUN/creatinine ratioOrdered By: Gustavo Castorena on 08-18-2024 Urea nitrogen/Creatinine [Mass ratio] 22.8 mg/mg High 10-20 [facility] Basophil percentageOrdered B y: Sharrirubiamaryann Castorena on 08-18-2024 Basophils/100 WBC (Bld) 1.1 % High 0-1 [facility] Carbon dioxide, total [Moles /volume] in Central venous bloodOrdered By: Gustavo Castorena on 08-18-2024 CO2 [Moles/Vol] 18.3 mmol/L Low 21.0-32.0 [facility] Chloride assayOrdered By: Felix donnyanamaria Castorena on 08-18-2024 Chloride [Moles/Vol] 114 mmol/L High 98-108 [facility] Eosinophil percentageOrdered By: donnylewismaryann Castorena on 08-18-2024 Eosinophils/100 WBC (Bld) 4.9 % 0-5 [facility] Erythrocyte distribution wid th ratioOrdered By: donnylewismaryann Castorena on 08-18-2024 Erythrocyte distribution width (RBC) [Ratio] 16.2 % High 11.6-14.6 [facility] Erythrocyte distribution wid th standard deviationOrdered By: Gustavo Castorena on 08-18-2024 Erythrocyte distribution width (RBC) [Ratio] 61.8 fl High 35.1-43.9 [facility] Glomerular filtration rate ( GFR) estimation/1.73 sq m using serum, plasma, or whole bOrdered By: Gustavo Castorena on 08-18-2024 GFR/1.73 sq M.predicted among non-blacks MDRD (S/P/Bld) [Vol rate/Area] 29 mL/min/{1.73_m2} Low >60 [facility] Hematocrit Auto (Bld) [Volum e fraction]Ordered By: Gustavo Castorena on 08-18-2024 Hematocrit (Bld) [Volume fraction] 26.8 % Low 37-47 [facility] Hemoglobin measurementOrdere d By: Gustavo Castorena on 08-18-2024 Hemoglobin (Bld) [Mass/Vol] 8.1 g/dL Low 12.0-15.0 [facility] Immature granulocytes/100 WB C Auto (Bld)Ordered By: Gustavo Castorena on 08-18-2024 Immature granulocytes/100 WBC (Bld) 0.200 % 0.0-0.9 [facility] MCV (mean corpuscular volume ) determinationOrdered By: Gustavo Castorena on 08-18-2024 MCV (RBC) [Entitic vol] 103.9 fL High 81-99 [facility] Mean corpuscular hemoglobin (MCH) determinationOrdered By: Gustavo Castorena on 08-18-2024 MCH (RBC) [Entitic mass] 31.4 pg 27.0-32.0 [facility] Monocyte percentageOrdered B y: Gustavo Brownleeevelynechela on 08-18-2024 Monocytes/100 WBC (Bld) 8.5 % 0-10 [facility] Neutrophil percentageOrdered By: Gustavo Castorena on 08-18-2024 Neutrophils/100 WBC (Bld) 52.1 % 47-70 [facility] Platelet countOrdered By: Felix osbaldo Bradevelynechela on 08-18-2024 Platelets (Bld) [#/Vol] 194 10*3/uL 150-450 [facility] Potassium measurement (mass/ volume)Ordered By: Gustavo Castorena on 08-18-2024 Potassium (Unsp spec) [Mass/Vol] 3.3 mmol/L 3.3-5.1 [facility] RBC Auto (Bld) [#/Vol]Ordere d By: Sharrirubiamaryann Castorena on 08-18-2024 RBC (Bld) [#/Vol] 2.58 10*6/uL Low 4.2-5.4 [facility] Serum creatinine measurement (mass/volume)Ordered By: Gustavo Castorena on 08-18-2024 Creatinine [Mass/Vol] 1.72 mg/dL High 0.70-1.20 [facility] Serum glucose measurement (m ass/volume)Ordered By: Gustavo Castorena on 08-18-2024 Glucose [Mass/Vol] 78 mg/dL 70-99 [facility] Serum or plasma calcium farheen urement (mass/volume)Ordered By: Gustavo Brownleeevelynechela on 08-18-2024 Calcium [Mass/Vol] 8.2 mg/dL 7.6-11.0 [facility] Serum or plasma urea nitroge n measurement (mass/volume)Ordered By: Gustavo Brownleeevelynechela on 08-18-2024 Urea nitrogen [Mass/Vol] 39 mg/dL High 4-19 [facility] Sodium levelOrdered By: Sharri anamaria Bradevelynechela on 08-18-2024 Sodium [Moles/Vol] 142 mmol/L 133-145 [facility] White blood cell (WBC) count Ordered By: Sharrirubiamaryann Brownleeevelynechela on 08-18-2024 WBC (Bld) [#/Vol] 4.7 10*3/uL 4.4-11.0 [facility] Absolute lymphocyte countOrd ered By: Sharrianamaria Bradevelynechela on 08-16-2024 Lymphocytes Auto (Unsp spec) [#/Vol] 1.62 10*3/uL 0.83-4.51 [facility] Anion gap in Serum or Plasma Ordered By: Guidomaryann Bradevelynechela on 08-16-2024 Anion gap [Moles/Vol] 11 mmol/L 5-15 [facility] Automated lymphocyte count a s percentage of total leukocytesOrdered By: Sharrirubiamaryann Brownleeevelynechela on 08-16-2024 Lymphocytes/100 WBC Auto (Unsp spec) 31.6 % 19-41 [facility] BUN/creatinine ratioOrdered By: Sharrirubiamaryann Brownleeevelynechela on 08-16-2024 Urea nitrogen/Creatinine [Mass ratio] 21.3 mg/mg High 10-20 [facility] Basophil percentageOrdered B y: Gustavo Bradevelynechela on 08-16-2024 Basophils/100 WBC (Bld) 0.8 % 0-1 [facility] Carbon dioxide, total [Moles /volume] in Central venous bloodOrdered By: Sharrirubiamaryann Brownleeevelynechela on 08-16-2024 CO2 [Moles/Vol] 18.5 mmol/L Low 21.0-32.0 [facility] Chloride assayOrdered By: Felix donnyanamaria Castorena on 08-16-2024 Chloride [Moles/Vol] 113 mmol/L High 98-108 [facility] Eosinophil percentageOrdered By: Felixdonnyrubiamaryann Castorena on 08-16-2024 Eosinophils/100 WBC (Bld) 5.1 % High 0-5 [facility] Erythrocyte distribution wid th ratioOrdered By: [facility], Atlantamaryann Castorena on 08-16-2024 Erythrocyte distribution width (RBC) [Ratio] 16.1 % High 11.6-14.6 [facility] Erythrocyte distribution wid th standard deviationOrdered By: donnylewismaryann Brownleeevelynechela on 08-16-2024 Erythrocyte distribution width (RBC) [Ratio] 61.9 fl High 35.1-43.9 [facility] Glomerular filtration rate ( GFR) estimation/1.73 sq m using serum, plasma, or whole bOrdered By: Gustavo Castorena on 08-16-2024 GFR/1.73 sq M.predicted among non-blacks MDRD (S/P/Bld) [Vol rate/Area] 24 mL/min/{1.73_m2} Low >60 [facility] Hematocrit Auto (Bld) [Volum e fraction]Ordered By: donnylewismaryann Castorena on 08-16-2024 Hematocrit (Bld) [Volume fraction] 25.9 % Low 37-47 [facility] Hemoglobin measurementOrdere d By: Gustavo Castorena 08-16-2024 Hemoglobin (Bld) [Mass/Vol] 7.8 g/dL Low 12.0-15.0 [facility] Immature granulocytes/100 WB C Auto (Bld)Ordered By: Gustavo Castorena 08-16-2024 Immature granulocytes/100 WBC (Bld) 0.200 % 0.0-0.9 [facility] MCV (mean corpuscular volume ) determinationOrdered By: Gustavo Castorena 08-16-2024 MCV (RBC) [Entitic vol] 105.3 fL High 81-99 [facility] Mean corpuscular hemoglobin (MCH) determinationOrdered By: donnylewismaryann Castorena 08-16-2024 MCH (RBC) [Entitic mass] 31.7 pg 27.0-32.0 [facility] Monocyte percentageOrdered B y: Gustavo Castorena on 08-16-2024 Monocytes/100 WBC (Bld) 9.4 % 0-10 [facility] Neutrophil percentageOrdered By: Gustavo Castorena on 08-16-2024 Neutrophils/100 WBC (Bld) 52.9 % 47-70 [facility] Platelet countOrdered By: Felix osbaldo Bradevelynechela on 08-16-2024 Platelets (Bld) [#/Vol] 190 10*3/uL 150-450 [facility] Potassium measurement (mass/ volume)Ordered By: Sharrirubiamaryann Brownleeevelynechela on 08-16-2024 Potassium (Unsp spec) [Mass/Vol] 3.6 mmol/L 3.3-5.1 [facility] RBC Auto (Bld) [#/Vol]Ordere d By: Gustavo Bradifrah on 08-16-2024 RBC (Bld) [#/Vol] 2.46 10*6/uL Low 4.2-5.4 [facility] Serum creatinine measurement (mass/volume)Ordered By: Felixdonnyrubiamaryann Brownleeevelynechela on 08-16-2024 Creatinine [Mass/Vol] 2.04 mg/dL High 0.70-1.20 [facility] Serum glucose measurement (m ass/volume)Ordered By: Felixosbaldo Castorena on 08-16-2024 Glucose [Mass/Vol] 81 mg/dL 70-99 [facility] Serum or plasma calcium farehen urement (mass/volume)Ordered By: Felixdonnyrubiamaryann Brownleeevelynechela on 08-16-2024 Calcium [Mass/Vol] 8.1 mg/dL 7.6-11.0 [facility] Serum or plasma urea nitroge n measurement (mass/volume)Ordered By: Gustavo Castorena on 08-16-2024 Urea nitrogen [Mass/Vol] 43 mg/dL High 4-19 [facility] Sodium levelOrdered By: Sharri conrad Bradevelynechela on 08-16-2024 Sodium [Moles/Vol] 142 mmol/L 133-145 [facility] White blood cell (WBC) count Ordered By: Gustavo Brownleeevelynechela on 08-16-2024 WBC (Bld) [#/Vol] 5.1 10*3/uL 4.4-11.0 [facility] Wound Ctr History AND Physic jonathan 08-15-2024 Wound Ctr History & Physical Normal [facility] Plastic Surgery Visit Report on 08-12-2024 Plastic Surgery Visit Report Normal [facility] Absolute lymphocyte countOrd ered By: Gustavo Castorena on 08-08-2024 Lymphocytes Auto (Unsp spec) [#/Vol] 1.83 10*3/uL 0.83-4.51 [facility] Anion gap in Serum or Plasma Ordered By: Gustavo Castorena on 08-08-2024 Anion gap [Moles/Vol] 10 mmol/L 5-15 [facility] Automated lymphocyte count a s percentage of total leukocytesOrdered By: Gustavo Castorena on 08-08-2024 Lymphocytes/100 WBC Auto (Unsp spec) 37.8 % 19-41 [facility] BUN/creatinine ratioOrdered By: Gustavo Castorena on 08-08-2024 Urea nitrogen/Creatinine [Mass ratio] 18.6 mg/mg 10-20 [facility] Basophil percentageOrdered B y: Gustavo Castorena on 08-08-2024 Basophils/100 WBC (Bld) 1.0 % 0-1 [facility] Carbon dioxide, total [Moles /volume] in Central venous bloodOrdered By: Gustavo Castorena on 08-08-2024 CO2 [Moles/Vol] 21.2 mmol/L 21.0-32.0 [facility] Chloride assayOrdered By: Felix Castorena on 08-08-2024 Chloride [Moles/Vol] 109 mmol/L High 98-108 [facility] Eosinophil percentageOrdered By: Gustavo Castorena on 08-08-2024 Eosinophils/100 WBC (Bld) 6.4 % High 0-5 [facility] Erythrocyte distribution wid th ratioOrdered By: Gustavo Castorena on 08-08-2024 Erythrocyte distribution width (RBC) [Ratio] 16.5 % High 11.6-14.6 [facility] Erythrocyte distribution wid th standard deviationOrdered By: Gustavo Castorena on 08-08-2024 Erythrocyte distribution width (RBC) [Ratio] 61.0 fl High 35.1-43.9 [facility] Glomerular filtration rate ( GFR) estimation/1.73 sq m using serum, plasma, or whole bOrdered By: Gustavo Castorena on 08-08-2024 GFR/1.73 sq M.predicted among non-blacks MDRD (S/P/Bld) [Vol rate/Area] 26 mL/min/{1.73_m2} Low >60 [facility] Hematocrit Auto (Bld) [Volum e fraction]Ordered By: Gustavo Castorena on 08-08-2024 Hematocrit (Bld) [Volume fraction] 26.3 % Low 37-47 [facility] Hemoglobin measurementOrdere d By: Gustavo Castorena on 08-08-2024 Hemoglobin (Bld) [Mass/Vol] 8.3 g/dL Low 12.0-15.0 [facility] Immature granulocytes/100 WB C Auto (Bld)Ordered By: Gustavo Castorena on 08-08-2024 Immature granulocytes/100 WBC (Bld) 0.000 % 0.0-0.9 [facility] MCV (mean corpuscular volume ) determinationOrdered By: Gustavo Castorena on 08-08-2024 MCV (RBC) [Entitic vol] 101.5 fL High 81-99 [facility] Mean corpuscular hemoglobin (MCH) determinationOrdered By: osbaldo Castorena on 08-08-2024 MCH (RBC) [Entitic mass] 32.0 pg 27.0-32.0 [facility] Monocyte percentageOrdered B y: Gustavo Castorena on 08-08-2024 Monocytes/100 WBC (Bld) 10.3 % High 0-10 [facility] Neutrophil percentageOrdered By: osbaldo Castorena on 08-08-2024 Neutrophils/100 WBC (Bld) 44.5 % Low 47-70 [facility] Platelet countOrdered By: Felix Castorena on 08-08-2024 Platelets (Bld) [#/Vol] 202 10*3/uL 150-450 [facility] Potassium measurement (mass/ volume)Ordered By: Gustavo Castorena on 08-08-2024 Potassium (Unsp spec) [Mass/Vol] 3.4 mmol/L 3.3-5.1 [facility] RBC Auto (Bld) [#/Vol]Ordere d By: Gustavo Castorena on 08-08-2024 RBC (Bld) [#/Vol] 2.59 10*6/uL Low 4.2-5.4 [facility] Serum creatinine measurement (mass/volume)Ordered By: Gustavo Castorena on 08-08-2024 Creatinine [Mass/Vol] 1.90 mg/dL High 0.70-1.20 [facility] Serum glucose measurement (m ass/volume)Ordered By: Gustavo Castorena on 08-08-2024 Glucose [Mass/Vol] 78 mg/dL 70-99 [facility] Serum or plasma calcium farheen urement (mass/volume)Ordered By: Gustavo Castorena on 08-08-2024 Calcium [Mass/Vol] 8.0 mg/dL 7.6-11.0 [facility] Serum or plasma urea nitroge n measurement (mass/volume)Ordered By: Gustavo Castorena on 08-08-2024 Urea nitrogen [Mass/Vol] 35 mg/dL High 4-19 [facility] Sodium levelOrdered By: Sharri Castorena on 08-08-2024 Sodium [Moles/Vol] 140 mmol/L 133-145 [facility] White blood cell (WBC) count Ordered By: Gustavo Castorena on 08-08-2024 WBC (Bld) [#/Vol] 4.8 10*3/uL 4.4-11.0 [facility] Absolute lymphocyte countOrd ered By: Gustavo Castorena on 08-01-2024 Lymphocytes Auto (Unsp spec) [#/Vol] 1.62 10*3/uL 0.83-4.51 [facility] Anion gap in Serum or Plasma Ordered By: Gustavo Castorena on 08-01-2024 Anion gap [Moles/Vol] 11 mmol/L 5-15 [facility] Automated lymphocyte count a s percentage of total leukocytesOrdered By: Gustavo Castorena on 08-01-2024 Lymphocytes/100 WBC Auto (Unsp spec) 36.3 % 19-41 [facility] BUN/creatinine ratioOrdered By: Gustavo Castorena on 08-01-2024 Urea nitrogen/Creatinine [Mass ratio] 15.9 mg/mg 10-20 [facility] Basophil percentageOrdered B y: Gustavo Castorena on 08-01-2024 Basophils/100 WBC (Bld) 0.4 % 0-1 [facility] Carbon dioxide, total [Moles /volume] in Central venous bloodOrdered By: osbaldo Castorena on 08-01-2024 CO2 [Moles/Vol] 21.1 mmol/L 21.0-32.0 [facility] Chloride assayOrdered By: Felix donnyanamaria Castorena on 08-01-2024 Chloride [Moles/Vol] 111 mmol/L High 98-108 [facility] Eosinophil percentageOrdered By: Gustavo Castorena on 08-01-2024 Eosinophils/100 WBC (Bld) 6.7 % High 0-5 [facility] Erythrocyte distribution wid th ratioOrdered By: osbaldo Castorena on 08-01-2024 Erythrocyte distribution width (RBC) [Ratio] 16.9 % High 11.6-14.6 [facility] Erythrocyte distribution wid th standard deviationOrdered By: Gustavo Castorena on 08-01-2024 Erythrocyte distribution width (RBC) [Ratio] 63.1 fl High 35.1-43.9 [facility] Glomerular filtration rate ( GFR) estimation/1.73 sq m using serum, plasma, or whole bOrdered By: Gustavo Castorena on 08-01-2024 GFR/1.73 sq M.predicted among non-blacks MDRD (S/P/Bld) [Vol rate/Area] 28 mL/min/{1.73_m2} Low >60 [facility] Hematocrit Auto (Bld) [Volum e fraction]Ordered By: Gustavo Castorena on 08-01-2024 Hematocrit (Bld) [Volume fraction] 27.1 % Low 37-47 [facility] Hemoglobin measurementOrdere d By: Gustavo Castorena on 08-01-2024 Hemoglobin (Bld) [Mass/Vol] 8.5 g/dL Low 12.0-15.0 [facility] Immature granulocytes/100 WB C Auto (Bld)Ordered By: Gustavo Millardchela on 08-01-2024 Immature granulocytes/100 WBC (Bld) 0.700 % 0.0-0.9 [facility] MCV (mean corpuscular volume ) determinationOrdered By: Felixdonnyrubiamaryann Brownleeevelynechela on 08-01-2024 MCV (RBC) [Entitic vol] 101.1 fL High 81-99 [facility] Mean corpuscular hemoglobin (MCH) determinationOrdered By: donnyrubiamaryann Brownleeevelynechela on 08-01-2024 MCH (RBC) [Entitic mass] 31.7 pg 27.0-32.0 [facility] Monocyte percentageOrdered B y: Gustavo Bradevelynechela on 08-01-2024 Monocytes/100 WBC (Bld) 9.0 % 0-10 [facility] Neutrophil percentageOrdered By: donnyanamaria Bradevelynechela on 08-01-2024 Neutrophils/100 WBC (Bld) 46.9 % Low 47-70 [facility] Platelet countOrdered By: Felix Castorena on 08-01-2024 Platelets (Bld) [#/Vol] 175 10*3/uL 150-450 [facility] Potassium measurement (mass/ volume)Ordered By: Felixdonnyrubiamaryann Brownleeevelynechela on 08-01-2024 Potassium (Unsp spec) [Mass/Vol] 3.4 mmol/L 3.3-5.1 [facility] RBC Auto (Bld) [#/Vol]Ordere d By: Gustavo Millardchela on 08-01-2024 RBC (Bld) [#/Vol] 2.68 10*6/uL Low 4.2-5.4 [facility] Serum creatinine measurement (mass/volume)Ordered By: Felixdonnyrubiamaryann Brownleeevelynechela on 08-01-2024 Creatinine [Mass/Vol] 1.80 mg/dL High 0.70-1.20 [facility] Serum glucose measurement (m ass/volume)Ordered By: Felixdonnyrubiamaryann Brownleeevelynechela on 08-01-2024 Glucose [Mass/Vol] 80 mg/dL 70-99 [facility] Serum or plasma calcium farheen urement (mass/volume)Ordered By: Gustavo Castorena on 08-01-2024 Calcium [Mass/Vol] 8.1 mg/dL 7.6-11.0 [facility] Serum or plasma urea nitroge n measurement (mass/volume)Ordered By: Gustavo Castorena on 08-01-2024 Urea nitrogen [Mass/Vol] 29 mg/dL High 4-19 [facility] Sodium levelOrdered By: Sharri Castorena on 08-01-2024 Sodium [Moles/Vol] 143 mmol/L 133-145 [facility] White blood cell (WBC) count Ordered By: Gustavo Castorena on 08-01-2024 WBC (Bld) [#/Vol] 4.5 10*3/uL 4.4-11.0 [facility] Emergency Department Summary on 07-29-2024 Emergency Department Summary Normal [facility] Tibia Fibula 2 Viewson 07-29 Tibia Fibula 2 Views Normal [facility] Absolute lymphocyte countOrd ered By: Gustavo Castorena on 07-25-2024 Lymphocytes Auto (Unsp spec) [#/Vol] 1.75 10*3/uL 0.83-4.51 [facility] Absolute neutrophil countOrd ered By: Gustavo Castorena on 07-25-2024 Absolute neutrophil count 2.1 X10^3/uL 2.0-7.7 [facility] Anion gap [Moles/Vol]Ordered By: Gustavo Castorena on 07-25-2024 Anion gap in Serum or Plasma 9 5-15 [facility] Anion gap in Serum or Plasma Ordered By: Gustavo Castorena on 07-25-2024 Anion gap [Moles/Vol] 9 mmol/L 5- [facility] Automated lymphocyte count a s percentage of total leukocytesOrdered By: Gustavo Castorena on 07-25-2024 Lymphocytes/100 WBC Auto (Unsp spec) 38.2 % 19-41 [facility] BUN/creatinine ratioOrdered By: Gustavo Castorena on 07-25-2024 Urea nitrogen/Creatinine [Mass ratio] 20.2 mg/mg High 10-20 [facility] BUN/creatinine ratio 20.2 RATIO High 10-20 [facility] Basophil percentageOrdered B y: Gustavo Castorena on 07-25-2024 Basophils/100 WBC (Bld) 1.1 % High 0-1 [facility] Basophil percentage 1.1 % High 0-1 [facility] Calcium [Mass/Vol]Ordered By : Gustavo Castorena on 07-25-2024 Serum or plasma calcium measurement (mass/volume) 7.9 mg/dL 7.6-11.0 [facility] Carbon dioxide, total [Moles /volume] in Central venous bloodOrdered By: Gustavo Castorena on 07-25-2024 CO2 [Moles/Vol] 19.9 mmol/L Low 21.0-32.0 [facility] Carbon dioxide, total [Moles/volume] in Central venous blood 19.9 mmol/L Low 21.0-32.0 [facility] Chloride assayOrdered By: Felix Castorena on 07-25-2024 Chloride [Moles/Vol] 115 mmol/L High 98-108 [facility] Chloride assay 115 mmol/L High 98-108 [facility] Creatinine [Mass/Vol]Ordered By: Gustavo Castorena on 07-25-2024 Serum creatinine measurement (mass/volume) 1.64 mg/dL High 0.70-1.20 [facility] Eosinophil percentageOrdered By: Gustavo Castorena on 07-25-2024 Eosinophils/100 WBC (Bld) 7.0 % High 0-5 [facility] Eosinophil percentage 7.0 % High 0-5 [facility] Erythrocyte distribution wid th (RBC) [Ratio]Ordered By: Gustavo Castorena on 07-25-2024 Erythrocyte distribution width ratio 16.9 % High 11.6-14.6 [facility] Erythrocyte distribution width standard deviation 62.4 fl High 35.1-43.9 [facility] Erythrocyte distribution wid th ratioOrdered By: Gustavo Castorena on 07-25-2024 Erythrocyte distribution width (RBC) [Ratio] 16.9 % High 11.6-14.6 [facility] Erythrocyte distribution wid th standard deviationOrdered By: Gustavo Castorena on 07-25-2024 Erythrocyte distribution width (RBC) [Ratio] 62.4 fl High 35.1-43.9 [facility] GFR/1.73 sq M.predicted kayden g non-blacks MDRD (S/P/Bld) [Vol rate/Area]Ordered By: Gustavo Castorena on 07-25-2024 Glomerular filtration rate (GFR) estimation/1.73 sq m using serum, plasma, or whole b 31 Low >60 [facility] Glomerular filtration rate ( GFR) estimation/1.73 sq m using serum, plasma, or whole bOrdered By: Gustavo Castorena on 07-25-2024 GFR/1.73 sq M.predicted among non-blacks MDRD (S/P/Bld) [Vol rate/Area] 31 mL/min/{1.73_m2} Low >60 [facility] Glucose [Mass/Vol]Ordered By : Gustavo Castorena on 07-25-2024 Serum glucose measurement (mass/volume) 79 mg/dL 70-99 [facility] Hematocrit Auto (Bld) [Volum e fraction]Ordered By: Gustavo Castorena on 07-25-2024 Hematocrit (Bld) [Volume fraction] 27.6 % Low 37-47 [facility] Automated blood hematocrit (percentage) 27.6 % Low 37-47 [facility] Hemoglobin measurementOrdere d By: Gustavo Castorena on 07-25-2024 Hemoglobin (Bld) [Mass/Vol] 8.7 g/dL Low 12.0-15.0 [facility] Hemoglobin measurement 8.7 g/dL Low 12.0-15.0 [facility] Immature granulocytes/100 WB C Auto (Bld)Ordered By: Gustavo Castorena on 07-25-2024 Immature granulocytes/100 WBC (Bld) 0.000 % 0.0-0.9 [facility] Automated immature granulocyte percentage 0.000 % 0.0-0.9 [facility] Lymphocytes Auto (Unsp spec) [#/Vol]Ordered By: Gustavo Castorena on 07-25-2024 Absolute lymphocyte count 1.75 X10^3/uL 0.83-4.51 [facility] Lymphocytes/100 WBC Auto (Un sp spec)Ordered By: Gustavo Castorena on 07-25-2024 Automated lymphocyte count as percentage of total leukocytes 38.2 % 19-41 [facility] MCV (RBC) [Entitic vol]Order ed By: Gustavo Castorena on 07-25-2024 MCV (mean corpuscular volume) determination 100.7 fL High 81-99 [facility] MCV (mean corpuscular volume ) determinationOrdered By: Gustavo Castorena on 07-25-2024 MCV (RBC) [Entitic vol] 100.7 fL High 81-99 [facility] Mean corpuscular hemoglobin (MCH) determinationOrdered By: Gsutavo Castorena on 07-25-2024 MCH (RBC) [Entitic mass] 31.8 pg 27.0-32.0 [facility] Mean corpuscular hemoglobin (MCH) determination 31.8 pg 27.0-32.0 [facility] Mean corpuscular hemoglobin concentration (MCHC) determinationOrdered By: Gustavo Castorena on 07-25-2024 Mean corpuscular hemoglobin concentration (MCHC) determination 31.5 g/dL Low 32-36 [facility] Mean platelet volume determi nationOrdered By: Gustavo Castorena on 07-25-2024 Mean platelet volume determination 12.5 fl High 6.2-12.0 [facility] Monocyte percentageOrdered B y: Gustavo Castorena on 07-25-2024 Monocytes/100 WBC (Bld) 8.7 % 0-10 [facility] Monocyte percentage 8.7 % 0-10 [facility] Neutrophil percentageOrdered By: Gustavo Castorena on 07-25-2024 Neutrophils/100 WBC (Bld) 45.0 % Low 47-70 [facility] Neutrophil percentage 45.0 % Low 47-70 [facility] Nucleated red blood cell per centageOrdered By: Gustavo Castorena on 07-25-2024 Nucleated red blood cell percentage 0 % 0-5 [facility] Platelet countOrdered By: Felix Castorena on 07-25-2024 Platelets (Bld) [#/Vol] 200 10*3/uL 150-450 [facility] Platelet count 200 K/mm3 150-450 [facility] Potassium (Unsp spec) [Mass/ Vol]Ordered By: Gustavo Castorena on 07-25-2024 Potassium measurement (mass/volume) 3.3 mmol/L 3.3-5.1 [facility] Potassium measurement (mass/ volume)Ordered By: Gustavo Castorena on 07-25-2024 Potassium (Unsp spec) [Mass/Vol] 3.3 mmol/L 3.3-5.1 [facility] RBC Auto (Bld) [#/Vol]Ordere d By: Gustavo Castorena on 07-25-2024 RBC (Bld) [#/Vol] 2.74 10*6/uL Low 4.2-5.4 [facility] Automated blood erythrocyte count 2.74 M/mm3 Low 4.2-5.4 [facility] Serum creatinine measurement (mass/volume)Ordered By: Gustavo Castorena on 07-25-2024 Creatinine [Mass/Vol] 1.64 mg/dL High 0.70-1.20 [facility] Serum glucose measurement (m ass/volume)Ordered By: Gustavo Castorena on 07-25-2024 Glucose [Mass/Vol] 79 mg/dL 70-99 [facility] Serum or plasma calcium farheen urement (mass/volume)Ordered By: Gustavo Castorena on 07-25-2024 Calcium [Mass/Vol] 7.9 mg/dL 7.6-11.0 [facility] Serum or plasma urea nitroge n measurement (mass/volume)Ordered By: Gustavo Castorena on 07-25-2024 Urea nitrogen [Mass/Vol] 33 mg/dL High 4-19 [facility] Sodium levelOrdered By: Sharri Castorena on 07-25-2024 Sodium [Moles/Vol] 144 mmol/L 133-145 [facility] Sodium level 144 mmol/L 133-145 [facility] TSH DL <= 0.005 mIU/L QnOrde red By: Gustavo Castorena on 07-25-2024 TSH Qn 1.750 uIU/mL 0.300-4.20 0 [facility] Serum or plasma thyroid stimulating hormone (TSH) measurement by high sensitivity met 1.750 uIU/mL 0.300-4.20 0 [facility] Urea nitrogen [Mass/Vol]Orde red By: Gustavo Castorena on 07-25-2024 Serum or plasma urea nitrogen measurement (mass/volume) 33 mg/dL High 4-19 [facility] White blood cell (WBC) count Ordered By: Gustavo Castorena on 07-25-2024 WBC (Bld) [#/Vol] 4.6 10*3/uL 4.4-11.0 [facility] White blood cell (WBC) count 4.6 K/mm3 4.4-11.0 [facility] Absolute lymphocyte countOrd ered By: Gustavo Castorena on 07-18-2024 Lymphocytes Auto (Unsp spec) [#/Vol] 1.66 10*3/uL 0.83-4.51 [facility] Absolute neutrophil countOrd ered By: Gustavo Castorena on 07-18-2024 Absolute neutrophil count 2.3 X10^3/uL 2.0-7.7 [facility] Anion gap [Moles/Vol]Ordered By: Gustavo Castorena on 07-18-2024 Anion gap in Serum or Plasma 11 - [facility] Anion gap in Serum or Plasma Ordered By: Gustavo Castorena on 07-18-2024 Anion gap [Moles/Vol] 11 mmol/L - [facility] Automated lymphocyte count a s percentage of total leukocytesOrdered By: Gustavo Castorena on 07-18-2024 Lymphocytes/100 WBC Auto (Unsp spec) 35.5 % - [facility] BUN/creatinine ratioOrdered By: Gustavo Castorena on 07-18-2024 Urea nitrogen/Creatinine [Mass ratio] 20.8 mg/mg High 10- [facility] BUN/creatinine ratio 20.8 RATIO High 10-20 [facility] Basophil percentageOrdered B y: Gustavo Castorena on 07-18-2024 Basophils/100 WBC (Bld) 0.9 % 0-1 [facility] Basophil percentage 0.9 % 0-1 [facility] Calcium [Mass/Vol]Ordered By : Gustavo Castorena on 07-18-2024 Serum or plasma calcium measurement (mass/volume) 8.2 mg/dL 7.6-11.0 [facility] Carbon dioxide, total [Moles /volume] in Central venous bloodOrdered By: Gustavo Castorena on 07-18-2024 CO2 [Moles/Vol] 20.2 mmol/L Low 21.0-32.0 [facility] Carbon dioxide, total [Moles/volume] in Central venous blood 20.2 mmol/L Low 21.0-32.0 [facility] Chloride assayOrdered By: Felix Castorena on 07-18-2024 Chloride [Moles/Vol] 113 mmol/L High 98-108 [facility] Chloride assay 113 mmol/L High 98-108 [facility] Creatinine [Mass/Vol]Ordered By: Gustavo Castorena on 07-18-2024 Serum creatinine measurement (mass/volume) 1.54 mg/dL High 0.70-1.20 [facility] Eosinophil percentageOrdered By: Gustavo Castorena on 07-18-2024 Eosinophils/100 WBC (Bld) 7.1 % High 0-5 [facility] Eosinophil percentage 7.1 % High 0-5 [facility] Erythrocyte distribution wid th (RBC) [Ratio]Ordered By: Gustavo Castorena on 07-18-2024 Erythrocyte distribution width ratio 16.6 % High 11.6-14.6 [facility] Erythrocyte distribution width standard deviation 61.6 fl High 35.1-43.9 [facility] Erythrocyte distribution wid th ratioOrdered By: Gustavo Castorena on 07-18-2024 Erythrocyte distribution width (RBC) [Ratio] 16.6 % High 11.6-14.6 [facility] Erythrocyte distribution wid th standard deviationOrdered By: Gustvao Castorena on 07-18-2024 Erythrocyte distribution width (RBC) [Ratio] 61.6 fl High 35.1-43.9 [facility] GFR/1.73 sq M.predicted akyden g non-blacks MDRD (S/P/Bld) [Vol rate/Area]Ordered By: Gustavo Castorena on 07-18-2024 Glomerular filtration rate (GFR) estimation/1.73 sq m using serum, plasma, or whole b 34 Low >60 [facility] Glomerular filtration rate ( GFR) estimation/1.73 sq m using serum, plasma, or whole bOrdered By: Gustavo Castorena on 07-18-2024 GFR/1.73 sq M.predicted among non-blacks MDRD (S/P/Bld) [Vol rate/Area] 34 mL/min/{1.73_m2} Low >60 [facility] Glucose [Mass/Vol]Ordered By : Gustavo Castorena on 07-18-2024 Serum glucose measurement (mass/volume) 79 mg/dL 70-99 [facility] Hematocrit Auto (Bld) [Volum e fraction]Ordered By: Gustavo Castorena on 07-18-2024 Hematocrit (Bld) [Volume fraction] 31.1 % Low 37-47 [facility] Automated blood hematocrit (percentage) 31.1 % Low 37-47 [facility] Hemoglobin measurementOrdere d By: Gustavo Castorena on 07-18-2024 Hemoglobin (Bld) [Mass/Vol] 9.6 g/dL Low 12.0-15.0 [facility] Hemoglobin measurement 9.6 g/dL Low 12.0-15.0 [facility] Immature granulocytes/100 WB C Auto (Bld)Ordered By: Gustavo Castorena on 07-18-2024 Immature granulocytes/100 WBC (Bld) 0.200 % 0.0-0.9 [facility] Automated immature granulocyte percentage 0.200 % 0.0-0.9 [facility] Lymphocytes Auto (Unsp spec) [#/Vol]Ordered By: Gustavo Castorena on 07-18-2024 Absolute lymphocyte count 1.66 X10^3/uL 0.83-4.51 [facility] Lymphocytes/100 WBC Auto (Un sp spec)Ordered By: Gustavo Castorena on 07-18-2024 Automated lymphocyte count as percentage of total leukocytes 35.5 % 19-41 [facility] MCV (RBC) [Entitic vol]Order ed By: Gustavo Castorena on 07-18-2024 MCV (mean corpuscular volume) determination 101.3 fL High 81-99 [facility] MCV (mean corpuscular volume ) determinationOrdered By: Gustavo Castorena on 07-18-2024 MCV (RBC) [Entitic vol] 101.3 fL High 81-99 [facility] Mean corpuscular hemoglobin (MCH) determinationOrdered By: Gustavo Castorena on 07-18-2024 MCH (RBC) [Entitic mass] 31.3 pg 27.0-32.0 [facility] Mean corpuscular hemoglobin (MCH) determination 31.3 pg 27.0-32.0 [facility] Mean corpuscular hemoglobin concentration (MCHC) determinationOrdered By: Gustavo Castorena on 07-18-2024 Mean corpuscular hemoglobin concentration (MCHC) determination 30.9 g/dL Low 32-36 [facility] Mean platelet volume determi nationOrdered By: Gustavo Castorena on 07-18-2024 Mean platelet volume determination 12.6 fl High 6.2-12.0 [facility] Monocyte percentageOrdered B y: Gustavo Castorena on 07-18-2024 Monocytes/100 WBC (Bld) 6.4 % 0-10 [facility] Monocyte percentage 6.4 % 0-10 [facility] Neutrophil percentageOrdered By: Gustavo Castorena on 07-18-2024 Neutrophils/100 WBC (Bld) 49.9 % 47-70 [facility] Neutrophil percentage 49.9 % 47-70 [facility] Nucleated red blood cell per centageOrdered By: Gustavo Castorena on 07-18-2024 Nucleated red blood cell percentage 0 % 0-5 [facility] Platelet countOrdered By: Felix Castorena on 07-18-2024 Platelets (Bld) [#/Vol] 229 10*3/uL 150-450 [facility] Platelet count 229 K/mm3 150-450 [facility] Potassium (Unsp spec) [Mass/ Vol]Ordered By: Gustavo Castorena on 07-18-2024 Potassium measurement (mass/volume) 3.2 mmol/L Low 3.3-5.1 [facility] Potassium measurement (mass/ volume)Ordered By: Gustavo Castorena on 07-18-2024 Potassium (Unsp spec) [Mass/Vol] 3.2 mmol/L Low 3.3-5.1 [facility] RBC Auto (Bld) [#/Vol]Ordere d By: Gustavo Castorena on 07-18-2024 RBC (Bld) [#/Vol] 3.07 10*6/uL Low 4.2-5.4 [facility] Automated blood erythrocyte count 3.07 M/mm3 Low 4.2-5.4 [facility] Serum creatinine measurement (mass/volume)Ordered By: Gustavo Castorena on 07-18-2024 Creatinine [Mass/Vol] 1.54 mg/dL High 0.70-1.20 [facility] Serum glucose measurement (m ass/volume)Ordered By: Gustavo Castorena on 07-18-2024 Glucose [Mass/Vol] 79 mg/dL 70-99 [facility] Serum or plasma calcium farehen urement (mass/volume)Ordered By: Gustavo Castorena on 07-18-2024 Calcium [Mass/Vol] 8.2 mg/dL 7.6-11.0 [facility] Serum or plasma urea nitroge n measurement (mass/volume)Ordered By: Gustavo Castorena on 07-18-2024 Urea nitrogen [Mass/Vol] 32 mg/dL High 07-23 [facility] Sodium levelOrdered By: Sharri Castorena on 07-18-2024 Sodium [Moles/Vol] 144 mmol/L 133-145 [facility] [facility] Sodium level 144 mmol/L 133-145 [facility] Urea nitrogen [Mass/Vol]Orde red By: Gustavo Castorena on 07-18-2024 Serum or plasma urea nitrogen measurement (mass/volume) 32 mg/dL High 07-23 [facility] White blood cell (WBC) count Ordered By: Gustavo Castorena on 07-18-2024 WBC (Bld) [#/Vol] 4.7 10*3/uL 4.4-11.0 [facility] White blood cell (WBC) count 4.7 K/mm3 4.4-11.0 [facility] Absolute lymphocyte countOrd ered By: osbaldo Bradevelynechela on 07-11-2024 Lymphocytes Auto (Unsp spec) [#/Vol] 1.36 10*3/uL 0.83-4.51 [facility] Absolute neutrophil countOrd ered By: Felixdonnyrubiamaryann Brownleeevelynechela on 07-11-2024 Absolute neutrophil count 1.2 X10^3/uL Low 2.0-7.7 [facility] Anion gap [Moles/Vol]Ordered By: Gustavo Castorena on 07-11-2024 Anion gap in Serum or Plasma 11 5- [facility] Anion gap in Serum or Plasma Ordered By: [facility], Atlantamaryann Castorena on 07-11-2024 Anion gap [Moles/Vol] 11 mmol/L 5- [facility] Automated lymphocyte count a s percentage of total leukocytesOrdered By: Gustavo Castorena on 07-11-2024 Lymphocytes/100 WBC Auto (Unsp spec) 43.9 % High 19-41 [facility] BUN/creatinine ratioOrdered By: Felixosbaldo Castorena on 07-11-2024 Urea nitrogen/Creatinine [Mass ratio] 17.0 mg/mg 10-20 [facility] BUN/creatinine ratio 17.0 RATIO 10-20 [facility] Basophil percentageOrdered B y: Gustavo Castorena on 07-11-2024 Basophils/100 WBC (Bld) 1.0 % 0-1 [facility] Basophil percentage 1.0 % 0-1 [facility] Calcium [Mass/Vol]Ordered By : Gustavo Castorena on 07-11-2024 Serum or plasma calcium measurement (mass/volume) 8.0 mg/dL 7.6-11.0 [facility] Carbon dioxide, total [Moles /volume] in Central venous bloodOrdered By: Gustavo Castorena on 07-11-2024 CO2 [Moles/Vol] 19.1 mmol/L Low 21.0-32.0 [facility] Carbon dioxide, total [Moles/volume] in Central venous blood 19.1 mmol/L Low 21.0-32.0 [facility] Chloride assayOrdered By: Felix Castorena on 07-11-2024 Chloride [Moles/Vol] 112 mmol/L High 98-108 [facility] Chloride assay 112 mmol/L High 98-108 [facility] Creatinine [Mass/Vol]Ordered By: Gustavo Castorena on 07-11-2024 Serum creatinine measurement (mass/volume) 1.55 mg/dL High 0.70-1.20 [facility] Eosinophil percentageOrdered By: Gustavo Castorena on 07-11-2024 Eosinophils/100 WBC (Bld) 10.0 % High 0-5 [facility] Eosinophil percentage 10.0 % High 0-5 [facility] Erythrocyte distribution wid th (RBC) [Ratio]Ordered By: Gustavo Castorena on 07-11-2024 Erythrocyte distribution width ratio 16.9 % High 11.6-14.6 [facility] Erythrocyte distribution width standard deviation 64.1 fl High 35.1-43.9 [facility] Erythrocyte distribution wid th ratioOrdered By: Gustavo Castorena on 07-11-2024 Erythrocyte distribution width (RBC) [Ratio] 16.9 % High 11.6-14.6 [facility] Erythrocyte distribution wid th standard deviationOrdered By: Gustavo Castorena on 07-11-2024 Erythrocyte distribution width (RBC) [Ratio] 64.1 fl High 35.1-43.9 [facility] GFR/1.73 sq M.predicted kayden g non-blacks MDRD (S/P/Bld) [Vol rate/Area]Ordered By: Gustavo Castorena on 07-11-2024 Glomerular filtration rate (GFR) estimation/1.73 sq m using serum, plasma, or whole b 33 Low >60 [facility] Glomerular filtration rate ( GFR) estimation/1.73 sq m using serum, plasma, or whole bOrdered By: Gustavo Castorena on 07-11-2024 GFR/1.73 sq M.predicted among non-blacks MDRD (S/P/Bld) [Vol rate/Area] 33 mL/min/{1.73_m2} Low >60 [facility] Glucose [Mass/Vol]Ordered By : Gustavo Castorena on 07-11-2024 Serum glucose measurement (mass/volume) 74 mg/dL 70-99 [facility] Hematocrit Auto (Bld) [Volum e fraction]Ordered By: Gustavo Castorena on 07-11-2024 Hematocrit (Bld) [Volume fraction] 30.2 % Low 37-47 [facility] Automated blood hematocrit (percentage) 30.2 % Low 37-47 [facility] Hemoglobin measurementOrdere d By: Gustavo Castorena on 07-11-2024 Hemoglobin (Bld) [Mass/Vol] 9.2 g/dL Low 12.0-15.0 [facility] Hemoglobin measurement 9.2 g/dL Low 12.0-15.0 [facility] Immature granulocytes/100 WB C Auto (Bld)Ordered By: Gustavo Castorena on 07-11-2024 Immature granulocytes/100 WBC (Bld) 0.000 % 0.0-0.9 [facility] Automated immature granulocyte percentage 0.000 % 0.0-0.9 [facility] Lymphocytes Auto (Unsp spec) [#/Vol]Ordered By: Gustavo Castorena on 07-11-2024 Absolute lymphocyte count 1.36 X10^3/uL 0.83-4.51 [facility] Lymphocytes/100 WBC Auto (Un sp spec)Ordered By: Gustavo Castorena on 07-11-2024 Automated lymphocyte count as percentage of total leukocytes 43.9 % High 19-41 [facility] MCV (RBC) [Entitic vol]Order ed By: Gustavo Castorena on 07-11-2024 MCV (mean corpuscular volume) determination 102.4 fL High 81-99 [facility] MCV (mean corpuscular volume ) determinationOrdered By: Gustavo Castorena on 07-11-2024 MCV (RBC) [Entitic vol] 102.4 fL High 81-99 [facility] Mean corpuscular hemoglobin (MCH) determinationOrdered By: Gustavo Castorena on 07-11-2024 MCH (RBC) [Entitic mass] 31.2 pg 27.0-32.0 [facility] Mean corpuscular hemoglobin (MCH) determination 31.2 pg 27.0-32.0 [facility] Mean corpuscular hemoglobin concentration (MCHC) determinationOrdered By: Felixdonnyrubiamaryann Brownleeevelynechela on 07-11-2024 Mean corpuscular hemoglobin concentration (MCHC) determination 30.5 g/dL Low 32-36 [facility] Mean platelet volume determi nationOrdered By: Gustavo Bradevelynechela on 07-11-2024 Mean platelet volume determination 12.8 fl High 6.2-12.0 [facility] Monocyte percentageOrdered B y: Felixdonnyanamaria Bradevelynechela on 07-11-2024 Monocytes/100 WBC (Bld) 7.4 % 0-10 [facility] Monocyte percentage 7.4 % 0-10 [facility] Neutrophil percentageOrdered By: Gustavo Brownleeevelynechela on 07-11-2024 Neutrophils/100 WBC (Bld) 37.7 % Low 47-70 [facility] Neutrophil percentage 37.7 % Low 47-70 [facility] Nucleated red blood cell per centageOrdered By: Sharrirubiamaryann Brownleeevelynechela on 07-11-2024 Nucleated red blood cell percentage 0 % 0-5 [facility] Platelet countOrdered By: Felix osbaldo Bradevelynechela on 07-11-2024 Platelets (Bld) [#/Vol] 159 10*3/uL 150-450 [facility] Platelet count 159 K/mm3 150-450 [facility] Potassium (Unsp spec) [Mass/ Vol]Ordered By: Gustavo Castorena on 07-11-2024 Potassium measurement (mass/volume) 3.7 mmol/L 3.3-5.1 [facility] Potassium measurement (mass/ volume)Ordered By: Felixdonnyrubiamaryann Brownleeevelynechela on 07-11-2024 Potassium (Unsp spec) [Mass/Vol] 3.7 mmol/L 3.3-5.1 [facility] RBC Auto (Bld) [#/Vol]Ordere d By: Gustavo Castorena on 07-11-2024 RBC (Bld) [#/Vol] 2.95 10*6/uL Low 4.2-5.4 [facility] Automated blood erythrocyte count 2.95 M/mm3 Low 4.2-5.4 [facility] Serum creatinine measurement (mass/volume)Ordered By: Gustavo Castorena on 07-11-2024 Creatinine [Mass/Vol] 1.55 mg/dL High 0.70-1.20 [facility] Serum glucose measurement (m ass/volume)Ordered By: Gustavo Castorena on 07-11-2024 Glucose [Mass/Vol] 74 mg/dL 70-99 [facility] Serum or plasma calcium farheen urement (mass/volume)Ordered By: Gustavo Castorena on 07-11-2024 Calcium [Mass/Vol] 8.0 mg/dL 7.6-11.0 [facility] Serum or plasma urea nitroge n measurement (mass/volume)Ordered By: Gustavo Castorena on 07-11-2024 Urea nitrogen [Mass/Vol] 26 mg/dL High 07-23 [facility] Sodium levelOrdered By: Sharri Castorena on 07-11-2024 Sodium [Moles/Vol] 143 mmol/L 133-145 [facility] Sodium level 143 mmol/L 133-145 [facility] Urea nitrogen [Mass/Vol]Orde red By: Gustavo Castorena on 07-11-2024 Serum or plasma urea nitrogen measurement (mass/volume) 26 mg/dL High 07-23 [facility] White blood cell (WBC) count Ordered By: Gustavo Castorena on 07-11-2024 WBC (Bld) [#/Vol] 3.1 10*3/uL Low 4.4-11.0 [facility] White blood cell (WBC) count 3.1 K/mm3 Low 4.4-11.0 [facility] Absolute lymphocyte countOrd ered By: Gustavo Castorena on 07-04-2024 Lymphocytes Auto (Unsp spec) [#/Vol] 1.68 10*3/uL 0.83-4.51 [facility] Absolute neutrophil countOrd ered By: Gustavo Castorena on 07-04-2024 Absolute neutrophil count 2.0 X10^3/uL 2.0-7.7 [facility] Anion gap [Moles/Vol]Ordered By: Gustavo Castorena on 07-04-2024 Anion gap in Serum or Plasma 10 - [facility] Anion gap in Serum or Plasma Ordered By: Gustavo Castorena on 07-04-2024 Anion gap [Moles/Vol] 10 mmol/L - [facility] Automated lymphocyte count a s percentage of total leukocytesOrdered By: Gustavo Castorena on 07-04-2024 Lymphocytes/100 WBC Auto (Unsp spec) 38.1 % - [facility] BUN/creatinine ratioOrdered By: Gustavo Castorena on 07-04-2024 Urea nitrogen/Creatinine [Mass ratio] 17.0 mg/mg - [facility] BUN/creatinine ratio 17.0 RATIO - [facility] Basophil percentageOrdered B y: Gustavo Castorena on 07-04-2024 Basophils/100 WBC (Bld) 1.4 % High 0-1 [facility] Basophil percentage 1.4 % High 0-1 [facility] Calcium [Mass/Vol]Ordered By : Gustavo Castorena on 07-04-2024 Serum or plasma calcium measurement (mass/volume) 8.2 mg/dL 7.6-11.0 [facility] Carbon dioxide, total [Moles /volume] in Central venous bloodOrdered By: uGstavo Castorena on 07-04-2024 CO2 [Moles/Vol] 18.5 mmol/L Low 21.0-32.0 [facility] Carbon dioxide, total [Moles/volume] in Central venous blood 18.5 mmol/L Low 21.0-32.0 [facility] Chloride assayOrdered By: Felix Castorena on 07-04-2024 Chloride [Moles/Vol] 115 mmol/L High 98-108 [facility] Chloride assay 115 mmol/L High 98-108 [facility] Creatinine [Mass/Vol]Ordered By: Gustavo Castorena on 07-04-2024 Serum creatinine measurement (mass/volume) 1.51 mg/dL High 0.70-1.20 [facility] Eosinophil percentageOrdered By: Gustavo Castorena on 07-04-2024 Eosinophils/100 WBC (Bld) 7.5 % High 0-5 [facility] Eosinophil percentage 7.5 % High 0-5 [facility] Erythrocyte distribution wid th (RBC) [Ratio]Ordered By: Gustavo Castorena on 07-04-2024 Erythrocyte distribution width ratio 17.2 % High 11.6-14.6 [facility] Erythrocyte distribution width standard deviation 64.0 fl High 35.1-43.9 [facility] Erythrocyte distribution wid th ratioOrdered By: Gustavo Csatorena on 07-04-2024 Erythrocyte distribution width (RBC) [Ratio] 17.2 % High 11.6-14.6 [facility] Erythrocyte distribution wid th standard deviationOrdered By: Gustavo Castorena on 07-04-2024 Erythrocyte distribution width (RBC) [Ratio] 64.0 fl High 35.1-43.9 [facility] GFR/1.73 sq M.predicted kayden g non-blacks MDRD (S/P/Bld) [Vol rate/Area]Ordered By: Gustavo Castorena on 07-04-2024 Glomerular filtration rate (GFR) estimation/1.73 sq m using serum, plasma, or whole b 34 Low >60 [facility] Glomerular filtration rate ( GFR) estimation/1.73 sq m using serum, plasma, or whole bOrdered By: Gustavo Castorena on 07-04-2024 GFR/1.73 sq M.predicted among non-blacks MDRD (S/P/Bld) [Vol rate/Area] 34 mL/min/{1.73_m2} Low >60 [facility] Glucose [Mass/Vol]Ordered By : Gusatvo Castorena on 07-04-2024 Serum glucose measurement (mass/volume) 71 mg/dL 70-99 [facility] Hematocrit Auto (Bld) [Volum e fraction]Ordered By: Gustavo Castorena on 07-04-2024 Hematocrit (Bld) [Volume fraction] 29.0 % Low 37-47 [facility] Automated blood hematocrit (percentage) 29.0 % Low 37-47 [facility] Hemoglobin measurementOrdere d By: Gustavo Castorena on 07-04-2024 Hemoglobin (Bld) [Mass/Vol] 8.9 g/dL Low 12.0-15.0 [facility] Hemoglobin measurement 8.9 g/dL Low 12.0-15.0 [facility] Immature granulocytes/100 WB C Auto (Bld)Ordered By: Gustavo Castorena on 07-04-2024 Immature granulocytes/100 WBC (Bld) 0.200 % 0.0-0.9 [facility] Automated immature granulocyte percentage 0.200 % 0.0-0.9 [facility] Lymphocytes Auto (Unsp spec) [#/Vol]Ordered By: Gustavo Castorena on 07-04-2024 Absolute lymphocyte count 1.68 X10^3/uL 0.83-4.51 [facility] Lymphocytes/100 WBC Auto (Un sp spec)Ordered By: Gustavo Castorena on 07-04-2024 Automated lymphocyte count as percentage of total leukocytes 38.1 % 19-41 [facility] MCV (RBC) [Entitic vol]Order ed By: Gustavo Castorena on 07-04-2024 MCV (mean corpuscular volume) determination 102.1 fL High 81-99 [facility] MCV (mean corpuscular volume ) determinationOrdered By: Gustavo Castorena on 07-04-2024 MCV (RBC) [Entitic vol] 102.1 fL High 81-99 [facility] Mean corpuscular hemoglobin (MCH) determinationOrdered By: Gustavo Castorena on 07-04-2024 MCH (RBC) [Entitic mass] 31.3 pg 27.0-32.0 [facility] Mean corpuscular hemoglobin (MCH) determination 31.3 pg 27.0-32.0 [facility] Mean corpuscular hemoglobin concentration (MCHC) determinationOrdered By: Gustavo Castorena on 07-04-2024 Mean corpuscular hemoglobin concentration (MCHC) determination 30.7 g/dL Low 32-36 [facility] Mean platelet volume determi nationOrdered By: Gustavo Castorena on 07-04-2024 Mean platelet volume determination 12.7 fl High 6.2-12.0 [facility] Monocyte percentageOrdered B y: Gustavo Castorena on 07-04-2024 Monocytes/100 WBC (Bld) 7.9 % 0-10 [facility] Monocyte percentage 7.9 % 0-10 [facility] Neutrophil percentageOrdered By: Felixdonnyrubiamaryann Brownleeevelynechela on 07-04-2024 Neutrophils/100 WBC (Bld) 44.9 % Low 47-70 [facility] Neutrophil percentage 44.9 % Low 47-70 [facility] Nucleated red blood cell per centageOrdered By: Gustavo Castorena on 07-04-2024 Nucleated red blood cell percentage 0 % 0-5 [facility] Platelet countOrdered By: Felix yulianamaryann Brownleeevelynechela on 07-04-2024 Platelets (Bld) [#/Vol] 187 10*3/uL 150-450 [facility] Platelet count 187 K/mm3 150-450 [facility] Potassium (Unsp spec) [Mass/ Vol]Ordered By: Gustavo Castorena on 07-04-2024 Potassium measurement (mass/volume) 3.3 mmol/L 3.3-5.1 [facility] Potassium measurement (mass/ volume)Ordered By: Gustavo Castorena on 07-04-2024 Potassium (Unsp spec) [Mass/Vol] 3.3 mmol/L 3.3-5.1 [facility] RBC Auto (Bld) [#/Vol]Ordere d By: Gustavo Castorena on 07-04-2024 RBC (Bld) [#/Vol] 2.84 10*6/uL Low 4.2-5.4 [facility] Automated blood erythrocyte count 2.84 M/mm3 Low 4.2-5.4 [facility] Serum creatinine measurement (mass/volume)Ordered By: Gustavo Castorena on 07-04-2024 Creatinine [Mass/Vol] 1.51 mg/dL High 0.70-1.20 [facility] Serum glucose measurement (m ass/volume)Ordered By: Gustavo Castorena on 07-04-2024 Glucose [Mass/Vol] 71 mg/dL 70-99 [facility] Serum or plasma calcium farheen urement (mass/volume)Ordered By: Gustavo Castorena on 07-04-2024 Calcium [Mass/Vol] 8.2 mg/dL 7.6-11.0 [facility] Serum or plasma urea nitroge n measurement (mass/volume)Ordered By: Gustavo Castorena on 07-04-2024 Urea nitrogen [Mass/Vol] 26 mg/dL High 07-23 [facility] Sodium levelOrdered By: Sharri riosyuridia Kell on 07-04-2024 Sodium [Moles/Vol] 144 mmol/L 133-145 [facility] Sodium level 144 mmol/L 133-145 [facility] Urea nitrogen [Mass/Vol]Orde red By: Gustavo Castorena on 07-04-2024 Serum or plasma urea nitrogen measurement (mass/volume) 26 mg/dL High - [facility] White blood cell (WBC) count Ordered By: Gustavo Castorena on 07-04-2024 WBC (Bld) [#/Vol] 4.4 10*3/uL 4.4-11.0 [facility] White blood cell (WBC) count 4.4 K/mm3 4.4-11.0 [facility] Absolute lymphocyte countOrd ered By: Gustavo Castorena on 06-27-2024 Lymphocytes Auto (Unsp spec) [#/Vol] 1.65 10*3/uL 0.83-4.51 [facility] Absolute neutrophil countOrd ered By: Gustavo Castorena on 06-27-2024 Absolute neutrophil count 2.3 X10^3/uL 2.0-7.7 [facility] Anion gap [Moles/Vol]Ordered By: Gustavo Castorena on 06-27-2024 Anion gap in Serum or Plasma 10 5-15 [facility] Anion gap in Serum or Plasma Ordered By: Gustavo Castorena on 06-27-2024 Anion gap [Moles/Vol] 10 mmol/L 5-15 [facility] Automated lymphocyte count a s percentage of total leukocytesOrdered By: Gustavo Castorena on 06-27-2024 Lymphocytes/100 WBC Auto (Unsp spec) 35.6 % - [facility] BUN/creatinine ratioOrdered By: Gustavo Castorena on 06-27-2024 Urea nitrogen/Creatinine [Mass ratio] 21.3 mg/mg High 10-20 [facility] BUN/creatinine ratio 21.3 RATIO High 10-20 [facility] Basophil percentageOrdered B y: Gustavo Castorena on 06-27-2024 Basophils/100 WBC (Bld) 0.9 % 0-1 [facility] Basophil percentage 0.9 % 0-1 [facility] Calcium [Mass/Vol]Ordered By : Gustavo Castorena on 06-27-2024 Serum or plasma calcium measurement (mass/volume) 8.2 mg/dL 7.6-11.0 [facility] Carbon dioxide, total [Moles /volume] in Central venous bloodOrdered By: Gustavo Castorena on 06-27-2024 CO2 [Moles/Vol] 19.6 mmol/L Low 21.0-32.0 [facility] Carbon dioxide, total [Moles/volume] in Central venous blood 19.6 mmol/L Low 21.0-32.0 [facility] Chloride assayOrdered By: Felix Castorena on 06-27-2024 Chloride [Moles/Vol] 112 mmol/L High 98-108 [facility] Chloride assay 112 mmol/L High 98-108 [facility] Creatinine [Mass/Vol]Ordered By: Gustavo Castorena on 06-27-2024 Serum creatinine measurement (mass/volume) 1.31 mg/dL High 0.70-1.20 [facility] Eosinophil percentageOrdered By: Gustavo Castorena on 06-27-2024 Eosinophils/100 WBC (Bld) 7.1 % High 0-5 [facility] Erythrocyte distribution wid th (RBC) [Ratio]Ordered By: Gustavo Castorena on 06-27-2024 Erythrocyte distribution width ratio 17.0 % High 11.6-14.6 [facility] Erythrocyte distribution width standard deviation 65.1 fl High 35.1-43.9 [facility] Erythrocyte distribution wid th ratioOrdered By: Gustavo Castorena on 06-27-2024 Erythrocyte distribution width (RBC) [Ratio] 17.0 % High 11.6-14.6 [facility] Erythrocyte distribution wid th standard deviationOrdered By: Gustavo Castorena on 06-27-2024 Erythrocyte distribution width (RBC) [Ratio] 65.1 fl High 35.1-43.9 [facility] GFR/1.73 sq M.predicted kayden g non-blacks MDRD (S/P/Bld) [Vol rate/Area]Ordered By: Gustavo Castorena on 06-27-2024 Glomerular filtration rate (GFR) estimation/1.73 sq m using serum, plasma, or whole b 41 Low >60 [facility] Glomerular filtration rate ( GFR) estimation/1.73 sq m using serum, plasma, or whole bOrdered By: Gustavo Castorena on 06-27-2024 GFR/1.73 sq M.predicted among non-blacks MDRD (S/P/Bld) [Vol rate/Area] 41 mL/min/{1.73_m2} Low >60 [facility] Glucose [Mass/Vol]Ordered By : Gustavo Castorena on 06-27-2024 Serum glucose measurement (mass/volume) 76 mg/dL 70-99 [facility] Hematocrit Auto (Bld) [Volum e fraction]Ordered By: Gustavo Castorena on 06-27-2024 Hematocrit (Bld) [Volume fraction] 28.9 % Low 37-47 [facility] Automated blood hematocrit (percentage) 28.9 % Low 37-47 [facility] Hemoglobin measurementOrdere d By: Gustavo Castorena on 06-27-2024 Hemoglobin (Bld) [Mass/Vol] 8.6 g/dL Low 12.0-15.0 [facility] Hemoglobin measurement 8.6 g/dL Low 12.0-15.0 [facility] Immature granulocytes/100 WB C Auto (Bld)Ordered By: Gustaov Castorena on 06-27-2024 Immature granulocytes/100 WBC (Bld) 0.200 % 0.0-0.9 [facility] Automated immature granulocyte percentage 0.200 % 0.0-0.9 [facility] Lymphocytes Auto (Unsp spec) [#/Vol]Ordered By: Gustavo Castorena on 06-27-2024 Absolute lymphocyte count 1.65 X10^3/uL 0.83-4.51 [facility] Lymphocytes/100 WBC Auto (Un sp spec)Ordered By: Gustavo Castorena on 06-27-2024 Automated lymphocyte count as percentage of total leukocytes 35.6 % 19-41 [facility] MCV (RBC) [Entitic vol]Order ed By: Gustavo Castorena on 06-27-2024 MCV (mean corpuscular volume) determination 102.8 fL High 81-99 [facility] MCV (mean corpuscular volume ) determinationOrdered By: Gustavo Castorena on 06-27-2024 MCV (RBC) [Entitic vol] 102.8 fL High 81-99 [facility] Mean corpuscular hemoglobin (MCH) determinationOrdered By: Gustavo Castorena on 06-27-2024 MCH (RBC) [Entitic mass] 30.6 pg 27.0-32.0 [facility] Mean corpuscular hemoglobin (MCH) determination 30.6 pg 27.0-32.0 [facility] Mean corpuscular hemoglobin concentration (MCHC) determinationOrdered By: Gustavo Castorena on 06-27-2024 Mean corpuscular hemoglobin concentration (MCHC) determination 29.8 g/dL Low 32-36 [facility] Mean platelet volume determi nationOrdered By: Gustavo Castorena on 06-27-2024 Mean platelet volume determination 12.5 fl High 6.2-12.0 [facility] Monocyte percentageOrdered B y: Gustavo Castorena on 06-27-2024 Monocytes/100 WBC (Bld) 7.1 % 0-10 [facility] Monocyte percentage 7.1 % High 0-5 [facility] Neutrophil percentageOrdered By: Gustavo Castorena on 06-27-2024 Neutrophils/100 WBC (Bld) 49.1 % 47-70 [facility] Neutrophil percentage 49.1 % 47-70 [facility] No Panel InformationOrdered By: Gustavo Castorena on 06-27-2024 1+ [facility] Nucleated red blood cell per centageOrdered By: Gustavo Castorena on 06-27-2024 Nucleated red blood cell percentage 0 % 0-5 [facility] Platelet countOrdered By: Felix Castorena on 06-27-2024 Platelets (Bld) [#/Vol] 201 10*3/uL 150-450 [facility] Platelet count 201 K/mm3 150-450 [facility] Potassium (Unsp spec) [Mass/ Vol]Ordered By: Gustavo Castorena on 06-27-2024 Potassium measurement (mass/volume) 3.9 mmol/L 3.3-5.1 [facility] Potassium measurement (mass/ volume)Ordered By: Gustavo Castorena on 06-27-2024 Potassium (Unsp spec) [Mass/Vol] 3.9 mmol/L 3.3-5.1 [facility] RBC Auto (Bld) [#/Vol]Ordere d By: Gustavo Castorena on 06-27-2024 RBC (Bld) [#/Vol] 2.81 10*6/uL Low 4.2-5.4 [facility] Automated blood erythrocyte count 2.81 M/mm3 Low 4.2-5.4 [facility] Serum creatinine measurement (mass/volume)Ordered By: Gustavo Castorena on 06-27-2024 Creatinine [Mass/Vol] 1.31 mg/dL High 0.70-1.20 [facility] Serum glucose measurement (m ass/volume)Ordered By: Gustavo Castorena on 06-27-2024 Glucose [Mass/Vol] 76 mg/dL 70-99 [facility] Serum or plasma calcium farheen urement (mass/volume)Ordered By: Gustavo Castorena on 06-27-2024 Calcium [Mass/Vol] 8.2 mg/dL 7.6-11.0 [facility] Serum or plasma urea nitroge n measurement (mass/volume)Ordered By: Gustavo Castorena on 06-27-2024 Urea nitrogen [Mass/Vol] 28 mg/dL High 4-19 [facility] Sodium levelOrdered By: Sharri Castorena on 06-27-2024 Sodium [Moles/Vol] 141 mmol/L 133-145 [facility] Sodium level 141 mmol/L 133-145 [facility] Urea nitrogen [Mass/Vol]Orde red By: Gustavo Castorena on 06-27-2024 Serum or plasma urea nitrogen measurement (mass/volume) 28 mg/dL High 4-19 [facility] White blood cell (WBC) count Ordered By: Gustavo Castorena on 06-27-2024 WBC (Bld) [#/Vol] 4.6 10*3/uL 4.4-11.0 [facility] White blood cell (WBC) count 4.6 K/mm3 4.4-11.0 [facility] Absolute lymphocyte countOrd ered By: Gustavo Castorena on 06-20-2024 Lymphocytes Auto (Unsp spec) [#/Vol] 1.65 10*3/uL 0.83-4.51 [facility] Absolute neutrophil countOrd ered By: Gustavo Castorena on 06-20-2024 Absolute neutrophil count 2.5 X10^3/uL 2.0-7.7 [facility] Anion gap [Moles/Vol]Ordered By: Gustavo Castorena on 06-20-2024 Anion gap in Serum or Plasma 9 5-15 [facility] Anion gap in Serum or Plasma Ordered By: Gustavo Castorena on 06-20-2024 Anion gap [Moles/Vol] 9 mmol/L 5-15 [facility] Automated lymphocyte count a s percentage of total leukocytesOrdered By: Gustavo Castorena on 06-20-2024 Lymphocytes/100 WBC Auto (Unsp spec) 34.5 % 19-41 [facility] BUN/creatinine ratioOrdered By: Gustavo Castorena on 06-20-2024 Urea nitrogen/Creatinine [Mass ratio] 22.3 mg/mg High 10-20 [facility] BUN/creatinine ratio 22.3 RATIO High 10-20 [facility] Basophil percentageOrdered B y: Gustavo Castorena on 06-20-2024 Basophils/100 WBC (Bld) 1.3 % High 0-1 [facility] Basophil percentage 1.3 % High 0-1 [facility] Calcium [Mass/Vol]Ordered By : Gustavo Castorena on 06-20-2024 Serum or plasma calcium measurement (mass/volume) 8.5 mg/dL 7.6-11.0 [facility] Carbon dioxide, total [Moles /volume] in Central venous bloodOrdered By: Gustavo Castorena on 06-20-2024 CO2 [Moles/Vol] 20.3 mmol/L Low 21.0-32.0 [facility] Carbon dioxide, total [Moles/volume] in Central venous blood 20.3 mmol/L Low 21.0-32.0 [facility] Chloride assayOrdered By: Felix Castorena on 06-20-2024 Chloride [Moles/Vol] 113 mmol/L High 98-108 [facility] Chloride assay 113 mmol/L High 98-108 [facility] Creatinine [Mass/Vol]Ordered By: Gustavo Castorena on 06-20-2024 Serum creatinine measurement (mass/volume) 1.75 mg/dL High 0.70-1.20 [facility] Eosinophil percentageOrdered By: Gustavo Castorena on 06-20-2024 Eosinophils/100 WBC (Bld) 5.6 % High 0-5 [facility] Eosinophil percentage 5.6 % High 0-5 [facility] Erythrocyte distribution wid th (RBC) [Ratio]Ordered By: Gustavo Castorena on 06-20-2024 Erythrocyte distribution width ratio 16.8 % High 11.6-14.6 [facility] Erythrocyte distribution width standard deviation 63.8 fl High 35.1-43.9 [facility] Erythrocyte distribution wid th ratioOrdered By: Gustavo Castorena on 06-20-2024 Erythrocyte distribution width (RBC) [Ratio] 16.8 % High 11.6-14.6 [facility] Erythrocyte distribution wid th standard deviationOrdered By: Gustavo Castorena on 06-20-2024 Erythrocyte distribution width (RBC) [Ratio] 63.8 fl High 35.1-43.9 [facility] GFR/1.73 sq M.predicted kayden g non-blacks MDRD (S/P/Bld) [Vol rate/Area]Ordered By: Gustavo Castorena on 06-20-2024 Glomerular filtration rate (GFR) estimation/1.73 sq m using serum, plasma, or whole b 29 Low >60 [facility] Glomerular filtration rate ( GFR) estimation/1.73 sq m using serum, plasma, or whole bOrdered By: Gustavo Castorena on 06-20-2024 GFR/1.73 sq M.predicted among non-blacks MDRD (S/P/Bld) [Vol rate/Area] 29 mL/min/{1.73_m2} Low >60 [facility] Glucose [Mass/Vol]Ordered By : Gustavo Castorena on 06-20-2024 Serum glucose measurement (mass/volume) 76 mg/dL 70-99 [facility] Hematocrit Auto (Bld) [Volum e fraction]Ordered By: Gustavo Castorena on 06-20-2024 Hematocrit (Bld) [Volume fraction] 29.1 % Low 37-47 [facility] Automated blood hematocrit (percentage) 29.1 % Low 37-47 [facility] Hemoglobin measurementOrdere d By: Gustavo Castorena on 06-20-2024 Hemoglobin (Bld) [Mass/Vol] 8.6 g/dL Low 12.0-15.0 [facility] Hemoglobin measurement 8.6 g/dL Low 12.0-15.0 [facility] Immature granulocytes/100 WB C Auto (Bld)Ordered By: Gustavo Castorena on 06-20-2024 Immature granulocytes/100 WBC (Bld) 0.200 % 0.0-0.9 [facility] Automated immature granulocyte percentage 0.200 % 0.0-0.9 [facility] Lymphocytes Auto (Unsp spec) [#/Vol]Ordered By: Gustavo Castorena on 06-20-2024 Absolute lymphocyte count 1.65 X10^3/uL 0.83-4.51 [facility] Lymphocytes/100 WBC Auto (Un sp spec)Ordered By: Gustavo Castorena on 06-20-2024 Automated lymphocyte count as percentage of total leukocytes 34.5 % 19-41 [facility] MCV (RBC) [Entitic vol]Order ed By: Gustavo Castorena on 06-20-2024 MCV (mean corpuscular volume) determination 104.3 fL High 81-99 [facility] MCV (mean corpuscular volume ) determinationOrdered By: Gustavo Castorena on 06-20-2024 MCV (RBC) [Entitic vol] 104.3 fL High 81-99 [facility] Mean corpuscular hemoglobin (MCH) determinationOrdered By: Gustavo Castorena on 06-20-2024 MCH (RBC) [Entitic mass] 30.8 pg 27.0-32.0 [facility] Mean corpuscular hemoglobin (MCH) determination 30.8 pg 27.0-32.0 [facility] Mean corpuscular hemoglobin concentration (MCHC) determinationOrdered By: Gustavo Castorena on 06-20-2024 Mean corpuscular hemoglobin concentration (MCHC) determination 29.6 g/dL Low 32-36 [facility] Mean platelet volume determi nationOrdered By: Gustavo Castorena on 06-20-2024 Mean platelet volume determination 12.5 fl High 6.2-12.0 [facility] Monocyte percentageOrdered B y: Gustavo Castorena on 06-20-2024 Monocytes/100 WBC (Bld) 5.9 % 0-10 [facility] Monocyte percentage 5.9 % 0-10 [facility] Neutrophil percentageOrdered By: Gustavo Castorena on 06-20-2024 Neutrophils/100 WBC (Bld) 52.5 % 47-70 [facility] Neutrophil percentage 52.5 % 47-70 [facility] Nucleated red blood cell per centageOrdered By: Gustavo Castorena on 06-20-2024 Nucleated red blood cell percentage 0 % 0-5 [facility] Platelet countOrdered By: Felix Castorena on 06-20-2024 Platelets (Bld) [#/Vol] 258 10*3/uL 150-450 [facility] Platelet count 258 K/mm3 150-450 [facility] Potassium (Unsp spec) [Mass/ Vol]Ordered By: Gustavo Castorena on 06-20-2024 Potassium measurement (mass/volume) 4.4 mmol/L 3.3-5.1 [facility] Potassium measurement (mass/ volume)Ordered By: Gustavo Castorena on 06-20-2024 Potassium (Unsp spec) [Mass/Vol] 4.4 mmol/L 3.3-5.1 [facility] RBC Auto (Bld) [#/Vol]Ordere d By: Gustavo Castorena on 06-20-2024 RBC (Bld) [#/Vol] 2.79 10*6/uL Low 4.2-5.4 [facility] Automated blood erythrocyte count 2.79 M/mm3 Low 4.2-5.4 [facility] Serum creatinine measurement (mass/volume)Ordered By: Gustavo Castorena on 06-20-2024 Creatinine [Mass/Vol] 1.75 mg/dL High 0.70-1.20 [facility] Serum glucose measurement (m ass/volume)Ordered By: Gustavo Castorena on 06-20-2024 Glucose [Mass/Vol] 76 mg/dL 70-99 [facility] Serum or plasma calcium farheen urement (mass/volume)Ordered By: Gustavo Castorena on 06-20-2024 Calcium [Mass/Vol] 8.5 mg/dL 7.6-11.0 [facility] Serum or plasma urea nitroge n measurement (mass/volume)Ordered By: Gustavo Castorena on 06-20-2024 Urea nitrogen [Mass/Vol] 39 mg/dL High 07-23 [facility] Sodium levelOrdered By: Sharri Castorena on 06-20-2024 Sodium [Moles/Vol] 142 mmol/L 133-145 [facility] Sodium level 142 mmol/L 133-145 [facility] Urea nitrogen [Mass/Vol]Orde red By: Gustavo Castorena on 06-20-2024 Serum or plasma urea nitrogen measurement (mass/volume) 39 mg/dL High - [facility] White blood cell (WBC) count Ordered By: Gustavo Castorena on 06-20-2024 WBC (Bld) [#/Vol] 4.8 10*3/uL 4.4-11.0 [facility] White blood cell (WBC) count 4.8 K/mm3 4.4-11.0 [facility] ALP [Catalytic activity/Vol] Ordered By: Gustavo Castorena on 06-13-2024 Serum or plasma alkaline phosphatase measurement 86 U/L 35-104 [facility] ALT [Catalytic activity/Vol] Ordered By: Gustavo Castorena on 06-13-2024 Serum or plasma alanine aminotransferase (ALT) measurement 11 U/L <35 [facility] Absolute lymphocyte countOrd ered By: Gustavo Castorena on 06-13-2024 Lymphocytes Auto (Unsp spec) [#/Vol] 1.75 10*3/uL 0.83-4.51 [facility] Absolute neutrophil countOrd ered By: Gustavo Castorena on 06-13-2024 Absolute neutrophil count 2.3 X10^3/uL 2.0-7.7 [facility] Albumin [Mass/Vol]Ordered By : Sharrilewismaryann Castorena on 06-13-2024 Serum or plasma albumin measurement (mass/volume) 2.5 g/dL Low 3.4-4.8 [facility] Albumin/Globulin [Mass ratio ]Ordered By: Gustavo Castorena on 06-13-2024 Serum or plasma albumin/globulin mass ratio 0.9 RATIO 0.9-2.4 [facility] Anion gap [Moles/Vol]Ordered By: Gustavo Castorena on 06-13-2024 Anion gap in Serum or Plasma 13 5-15 [facility] Anion gap in Serum or Plasma Ordered By: donnylewismaryann Castorena on 06-13-2024 Anion gap [Moles/Vol] 13 mmol/L 5-15 [facility] Automated lymphocyte count a s percentage of total leukocytesOrdered By: Gustavo Castorena on 06-13-2024 Lymphocytes/100 WBC Auto (Unsp spec) 36.6 % 19-41 [facility] BUN/creatinine ratioOrdered By: Gustavo Castorena on 06-13-2024 Urea nitrogen/Creatinine [Mass ratio] 26.0 mg/mg High 10-20 [facility] BUN/creatinine ratio 26.0 RATIO High 10-20 [facility] Basophil percentageOrdered B y: Gustavo Castorena on 06-13-2024 Basophils/100 WBC (Bld) 1.0 % 0-1 [facility] Basophil percentage 1.0 % 0-1 [facility] Bilirubin, totalOrdered By: Gustavo Castorena on 06-13-2024 Bilirubin [Mass/Vol] 0.17 mg/dL 0.00-1.30 [facility] Bilirubin, total 0.17 mg/dL 0.00-1.30 [facility] Calcium [Mass/Vol]Ordered By : Gustavo Castorena on 06-13-2024 Serum or plasma calcium measurement (mass/volume) 8.6 mg/dL 7.6-11.0 [facility] Calculated very low density lipoprotein (VLDL) cholesterol measurementOrdered By: Gustavo Castorena on 06-13-2024 Calculated very low density lipoprotein (VLDL) cholesterol measurement 21 mg/dL 5-40 [facility] Calculated very low density lipoprotein (VLDL) cholesterol measurement 21 mg/dL 5-40 [facility] Carbon dioxide, total [Moles /volume] in Central venous bloodOrdered By: Gustavo Castorena on 06-13-2024 CO2 [Moles/Vol] 18.2 mmol/L Low 21.0-32.0 [facility] Carbon dioxide, total [Moles/volume] in Central venous blood 18.2 mmol/L Low 21.0-32.0 [facility] Chloride assayOrdered By: Felix Castorena on 06-13-2024 Chloride [Moles/Vol] 113 mmol/L High 98-108 [facility] Chloride assay 113 mmol/L High 98-108 [facility] Cholesterol in HDL [Mass/Vol ]Ordered By: Gustavo Castorena on 06-13-2024 Serum or plasma cholesterol in HDL measurement (mass/volume) 27 mg/dL Low >40 [facility] Creatinine [Mass/Vol]Ordered By: Gustavo Castorena on 06-13-2024 Serum creatinine measurement (mass/volume) 1.60 mg/dL High 0.70-1.20 [facility] Eosinophil percentageOrdered By: Gustavo Castorena on 06-13-2024 Eosinophils/100 WBC (Bld) 7.5 % High 0-5 [facility] Eosinophil percentage 7.5 % High 0-5 [facility] Erythrocyte distribution wid th (RBC) [Ratio]Ordered By: Gustavo Castorena on 06-13-2024 Erythrocyte distribution width ratio 16.5 % High 11.6-14.6 [facility] Erythrocyte distribution width standard deviation 61.5 fl High 35.1-43.9 [facility] Erythrocyte distribution wid th ratioOrdered By: Gustavo Castorena on 06-13-2024 Erythrocyte distribution width (RBC) [Ratio] 16.5 % High 11.6-14.6 [facility] Erythrocyte distribution wid th standard deviationOrdered By: Gustavo Castorena on 06-13-2024 Erythrocyte distribution width (RBC) [Ratio] 61.5 fl High 35.1-43.9 [facility] GFR/1.73 sq M.predicted kayden g non-blacks MDRD (S/P/Bld) [Vol rate/Area]Ordered By: Gustavo Castorena on 06-13-2024 Glomerular filtration rate (GFR) estimation/1.73 sq m using serum, plasma, or whole b 32 Low >60 [facility] Glomerular filtration rate ( GFR) estimation/1.73 sq m using serum, plasma, or whole bOrdered By: Gustavo Castorena on 06-13-2024 GFR/1.73 sq M.predicted among non-blacks MDRD (S/P/Bld) [Vol rate/Area] 32 mL/min/{1.73_m2} Low >60 [facility] Glucose [Mass/Vol]Ordered By : Gustavo Castorena on 06-13-2024 Serum glucose measurement (mass/volume) 83 mg/dL 70-99 [facility] Hematocrit Auto (Bld) [Volum e fraction]Ordered By: Gustavo Castorena on 06-13-2024 Hematocrit (Bld) [Volume fraction] 29.2 % Low 37-47 [facility] Automated blood hematocrit (percentage) 29.2 % Low 37-47 [facility] Hemoglobin measurementOrdere d By: Gustavo Castorena on 06-13-2024 Hemoglobin (Bld) [Mass/Vol] 8.7 g/dL Low 12.0-15.0 [facility] Hemoglobin measurement 8.7 g/dL Low 12.0-15.0 [facility] Immature granulocytes/100 WB C Auto (Bld)Ordered By: Gustavo Castorena on 06-13-2024 Immature granulocytes/100 WBC (Bld) 0.200 % 0.0-0.9 [facility] Automated immature granulocyte percentage 0.200 % 0.0-0.9 [facility] LDL calc ser/plasOrdered By: Gustavo Castorena on 06-13-2024 Cholesterol in LDL [Mass/Vol] 56 mg/dL [facility] LDL calc ser/plas 56 mg/dL [facility] Lymphocytes Auto (Unsp spec) [#/Vol]Ordered By: Gustavo Castorena on 06-13-2024 Absolute lymphocyte count 1.75 X10^3/uL 0.83-4.51 [facility] Lymphocytes/100 WBC Auto (Un sp spec)Ordered By: Gustavo Castorena on 06-13-2024 Automated lymphocyte count as percentage of total leukocytes 36.6 % 19-41 [facility] MCV (RBC) [Entitic vol]Order ed By: Gustavo Castorena on 06-13-2024 MCV (mean corpuscular volume) determination 101.4 fL High 81-99 [facility] MCV (mean corpuscular volume ) determinationOrdered By: Gustavo Castorena on 06-13-2024 MCV (RBC) [Entitic vol] 101.4 fL High 81-99 [facility] Magnesium (Unsp spec) [Mass/ Vol]Ordered By: Gustavo Castorena on 06-13-2024 Magnesium measurement (mass/volume) 2.0 mg/dL 1.5-2.2 [facility] Magnesium measurement (mass/ volume)Ordered By: Gustavo Castorena on 06-13-2024 Magnesium (Unsp spec) [Mass/Vol] 2.0 mg/dL 1.5-2.2 [facility] Mean corpuscular hemoglobin (MCH) determinationOrdered By: Gustavo Castorena on 06-13-2024 MCH (RBC) [Entitic mass] 30.2 pg 27.0-32.0 [facility] Mean corpuscular hemoglobin (MCH) determination 30.2 pg 27.0-32.0 [facility] Mean corpuscular hemoglobin concentration (MCHC) determinationOrdered By: Gustavo Castorena on 06-13-2024 Mean corpuscular hemoglobin concentration (MCHC) determination 29.8 g/dL Low 32-36 [facility] Mean platelet volume determi nationOrdered By: Gustavo Castorena on 06-13-2024 Mean platelet volume determination 12.1 fl High 6.2-12.0 [facility] Monocyte percentageOrdered B y: Gustavo Castorena on 06-13-2024 Monocytes/100 WBC (Bld) 7.3 % 0-10 [facility] Monocyte percentage 7.3 % 0-10 [facility] Neutrophil percentageOrdered By: Gustavo Castorena on 06-13-2024 Neutrophils/100 WBC (Bld) 47.4 % 47-70 [facility] Neutrophil percentage 47.4 % 47-70 [facility] No Panel InformationOrdered By: Gustavo Castorena on 06-13-2024 20 U/L <32 [facility] Nucleated red blood cell per centageOrdered By: osbaldo Castorena on 06-13-2024 Nucleated red blood cell percentage 0 % 0-5 [facility] Platelet countOrdered By: Felix Castorena on 06-13-2024 Platelets (Bld) [#/Vol] 267 10*3/uL 150-450 [facility] Platelet count 267 K/mm3 150-450 [facility] Potassium (Unsp spec) [Mass/ Vol]Ordered By: Gustavo Castorena on 06-13-2024 Potassium measurement (mass/volume) 4.2 mmol/L 3.3-5.1 [facility] Potassium measurement (mass/ volume)Ordered By: Gustavo Castorena on 06-13-2024 Potassium (Unsp spec) [Mass/Vol] 4.2 mmol/L 3.3-5.1 [facility] RBC Auto (Bld) [#/Vol]Ordere d By: Gustavo Castorena on 06-13-2024 RBC (Bld) [#/Vol] 2.88 10*6/uL Low 4.2-5.4 [facility] Automated blood erythrocyte count 2.88 M/mm3 Low 4.2-5.4 [facility] Screening total cholesterol/ high density lipoprotein (HDL) cholesterol ratioOrdered By: Gustavo Castorena on 06-13-2024 Screening total cholesterol/high density lipoprotein (HDL) cholesterol ratio 3.85 [facility] Serum creatinine measurement (mass/volume)Ordered By: Gustavo Castorena on 06-13-2024 Creatinine [Mass/Vol] 1.60 mg/dL High 0.70-1.20 [facility] Serum globulin measurementOr dered By: Gustavo Castorena on 06-13-2024 Globulin (S) [Mass/Vol] 2.7 g/dL 2.2-4.2 [facility] Serum globulin measurement 2.7 g/dL 2.2-4.2 [facility] Serum glucose measurement (m ass/volume)Ordered By: Gustavo Castorena on 06-13-2024 Glucose [Mass/Vol] 83 mg/dL 70-99 [facility] Serum or plasma alanine huertas otransferase (ALT) measurementOrdered By: Gustavo Castorena on 06-13-2024 ALT [Catalytic activity/Vol] 11 U/L <35 [facility] Serum or plasma albumin farheen urement (mass/volume)Ordered By: Gustavo Castorena on 06-13-2024 Albumin [Mass/Vol] 2.5 g/dL Low 3.4-4.8 [facility] Serum or plasma albumin/glob ulin mass ratioOrdered By: Gustavo Castorena on 06-13-2024 Albumin/Globulin [Mass ratio] 0.9 {ratio} 0.9-2.4 [facility] Serum or plasma alkaline mariya sphatase measurementOrdered By: Gustavo Castorena on 06-13-2024 ALP [Catalytic activity/Vol] 86 U/L 35-104 [facility] Serum or plasma calcium farheen urement (mass/volume)Ordered By: Gustavo Castorena on 06-13-2024 Calcium [Mass/Vol] 8.6 mg/dL 7.6-11.0 [facility] Serum or plasma cholesterol in HDL measurement (mass/volume)Ordered By: Gustavo Castorena on 06-13-2024 Cholesterol in HDL [Mass/Vol] 27 mg/dL Low >40 [facility] Serum or plasma cholesterol measurement (mass/volume)Ordered By: Gustavo Castorena on 06-13-2024 Cholesterol [Mass/Vol] 104 mg/dL <201 [facility] Serum or plasma cholesterol measurement (mass/volume) 104 mg/dL <199 [facility] Serum or plasma urea nitroge n measurement (mass/volume)Ordered By: Gustavo Castorena on 06-13-2024 Urea nitrogen [Mass/Vol] 42 mg/dL High - [facility] Serum phosphorus measurement Ordered By: Gustavo Castorena on 06-13-2024 Serum phosphorus measurement 4.1 mg/dL 2.7-4.5 [facility] Sodium levelOrdered By: Sharri Castorena on 06-13-2024 Sodium [Moles/Vol] 144 mmol/L 133-145 [facility] Sodium level 144 mmol/L 133-145 [facility] TSH DL <= 0.005 mIU/L QnOrde red By: Gustavo Castorena on 06-13-2024 TSH Qn 3.000 uIU/mL 0.300-4.20 0 [facility] Serum or plasma thyroid stimulating hormone (TSH) measurement by high sensitivity met 3.000 uIU/mL 0.300-4.20 0 [facility] Total proteinOrdered By: Rolo Castorena on 06-13-2024 Protein [Mass/Vol] 5.2 g/dL Low 5.9-8.4 [facility] Total protein 5.2 g/dL Low 5.9-8.4 [facility] Urea nitrogen [Mass/Vol]Orde red By: Gustavo Castorena on 06-13-2024 Serum or plasma urea nitrogen measurement (mass/volume) 42 mg/dL High 4-19 [facility] Vitamin D, 25-hydroxyOrdered By: Gustavo Castorena on 06-13-2024 Vitamin D, 25-hydroxy 20.2 ng/mL Low 30-100 [facility] White blood cell (WBC) count Ordered By: Gustavo Castorena on 06-13-2024 WBC (Bld) [#/Vol] 4.8 10*3/uL 4.4-11.0 [facility] White blood cell (WBC) count 4.8 K/mm3 4.4-11.0 [facility] Albumin [Mass/Vol]Ordered By : Mari Mehta on 06-10-2024 Serum or plasma albumin measurement (mass/volume) 2.7 g/dL Low 3.4-4.8 [facility] Anion gap [Moles/Vol]Ordered By: Mari Mehta on 06-10-2024 Anion gap in Serum or Plasma 14 5-15 [facility] Anion gap in Serum or Plasma Ordered By: Mari Mehta on 06-10-2024 Anion gap [Moles/Vol] 14 mmol/L 5-15 [facility] BUN/creatinine ratioOrdered By: Mari Mehta on 06-10-2024 Urea nitrogen/Creatinine [Mass ratio] 26.1 mg/mg High 10-20 [facility] BUN/creatinine ratio 26.1 RATIO High 10-20 [facility] Calcium [Mass/Vol]Ordered By : Mari Mehta on 06-10-2024 Serum or plasma calcium measurement (mass/volume) 8.3 mg/dL 7.6-11.0 [facility] Carbon dioxide, total [Moles /volume] in Central venous bloodOrdered By: Mari Mehta on 06-10-2024 CO2 [Moles/Vol] 20.9 mmol/L Low 21.0-32.0 [facility] Carbon dioxide, total [Moles/volume] in Central venous blood 20.9 mmol/L Low 21.0-32.0 [facility] Chloride assayOrdered By: Manjeet Mehta on 06-10-2024 Chloride [Moles/Vol] 107 mmol/L 98-108 [facility] Chloride assay 107 mmol/L 98-108 [facility] Creatinine [Mass/Vol]Ordered By: Mari Mehta on 06-10-2024 Serum creatinine measurement (mass/volume) 2.03 mg/dL High 0.70-1.20 [facility] Estimation of creatinine jackie aranceOrdered By: Mari Mehta on 06-10-2024 Estimation of creatinine clearance 23.01 ml/min Low 50-250 [facility] GFR/1.73 sq M.predicted kayden g non-blacks MDRD (S/P/Bld) [Vol rate/Area]Ordered By: Mari Mehta on 06-10-2024 Glomerular filtration rate (GFR) estimation/1.73 sq m using serum, plasma, or whole b 24 Low >60 [facility] Glomerular filtration rate ( GFR) estimation/1.73 sq m using serum, plasma, or whole bOrdered By: Mari Mehta on 06-10-2024 GFR/1.73 sq M.predicted among non-blacks MDRD (S/P/Bld) [Vol rate/Area] 24 mL/min/{1.73_m2} Low >60 [facility] Glucose [Mass/Vol]Ordered By : Mari Mehta on 06-10-2024 Serum glucose measurement (mass/volume) 88 mg/dL 70-99 [facility] Potassium (Unsp spec) [Mass/ Vol]Ordered By: Mari Mehta on 06-10-2024 Potassium measurement (mass/volume) 4.2 mmol/L 3.3-5.1 [facility] Potassium measurement (mass/ volume)Ordered By: Mari Mehta on 06-10-2024 Potassium (Unsp spec) [Mass/Vol] 4.2 mmol/L 3.3-5.1 [facility] Renal Profileon 06-10-2024 Albumin [Mass/Vol] 2.7 g/dL Low 3.4-4.8 [facility] Comment on above: Performed By: #### L 500.3600 ####[facility] [id number] [place], [place], [id number] BUN/CRE 26.1 RATIO High 10-20 [facility] Comment on above: Performed By: #### L 500.3600 ####[facility] [id number] [place], [place], [id number] Calcium [Mass/Vol] 8.3 mg/dL Normal 7.6-11.0 [facility] Comment on above: Performed By: #### L 500.3600 ####[facility] [address] [place], [address] Chloride [Moles/Vol] 107 mmol/L Normal 98-108 [facility] Comment on above: Performed By: #### L 500.3600 ####[facility] [address] [place], [address] CO2 [Moles/Vol] 20.9 mmol/L Low 21.0-32.0 [facility] Comment on above: Performed By: #### L 500.3600 ####[facility] [address] [place], [address] Creatinine [Mass/Vol] 2.03 mg/dL High 0.70-1.20 [facility] Comment on above: Performed By: #### L 500.3600 ####[facility] [address] [place], [address] ECRCL 23.01 ml/min Low 50-250 [facility] Comment on above: Performed By: #### L 500.3600 ####[facility] [address] [place], [address] GAP 14 Normal 5-15 [facility] Comment on above: Performed By: #### L 500.3600 ####[facility] [address] [place], [address] GFR/1.73 sq M.predicted among non-blacks MDRD (S/P/Bld) [Vol rate/Area] 24 mL/min/{1.73_m2} Low >60 [facility] Comment on above: Result Comment: mL/m in/1.73m2 CKD-EPI Creatinine Equation (2020) Performed By: #### L 500.3600 ####[facility] [address] [place], [address] Glucose [Mass/Vol] 88 mg/dL Normal 70-99 [facility] Comment on above: Performed By: #### L 500.3600 ####[facility] [address] [place], [address] Phosphate [Mass/Vol] 5.2 mg/dL High 2.7-4.5 [facility] Comment on above: Performed By: #### L 500.3600 ####[facility] [address] [place], [address] Potassium [Moles/Vol] 4.2 mmol/L Normal 3.3-5.1 [facility] Comment on above: Performed By: #### L 500.3600 ####[facility] [address] [place], [address] Sodium [Moles/Vol] 142 mmol/L Normal 133-145 [facility] Comment on above: Performed By: #### L 500.3600 ####[facility] [address] [place], [address] Urea nitrogen [Mass/Vol] 53 mg/dL High 4-19 [facility] Comment on above: Performed By: #### L 500.3600 ####[facility] [address] [place], [address] Serum creatinine measurement (mass/volume)Ordered By: Mari Mehta on 06-10-2024 Creatinine [Mass/Vol] 2.03 mg/dL High 0.70-1.20 [facility] Serum glucose measurement (m ass/volume)Ordered By: Mari Mehta on 06-10-2024 Glucose [Mass/Vol] 88 mg/dL 70-99 [facility] Serum or plasma albumin farheen urement (mass/volume)Ordered By: Mari Mehta on 06-10-2024 Albumin [Mass/Vol] 2.7 g/dL Low 3.4-4.8 [facility] Serum or plasma calcium farheen urement (mass/volume)Ordered By: Mari Mehta on 06-10-2024 Calcium [Mass/Vol] 8.3 mg/dL 7.6-11.0 [facility] Serum or plasma urea nitroge n measurement (mass/volume)Ordered By: Mari Janine on 06-10-2024 Urea nitrogen [Mass/Vol] 53 mg/dL High 4- [facility] Serum phosphorus measurement Ordered By: Mari Janine on 06-10-2024 Serum phosphorus measurement 5.2 mg/dL High 2.7-4.5 [facility] Sodium levelOrdered By: Mari Janine on 06-10-2024 Sodium [Moles/Vol] 142 mmol/L 133-145 [facility] Sodium level 142 mmol/L 133-145 [facility] Urea nitrogen [Mass/Vol]Orde red By: Mari Mehta on 06-10-2024 Serum or plasma urea nitrogen measurement (mass/volume) 53 mg/dL High -19 [facility] Renal Profileon 06-09-2024 Albumin [Mass/Vol] 2.7 g/dL Low 3.4-4.8 [facility] Comment on above: Performed By: #### L 500.3600 ####[facility] [address] [place], [address] BUN/CRE 25.7 RATIO High 10-20 [facility] Comment on above: Performed By: #### L 500.3600 ####[facility] [address] [place], [address] Calcium [Mass/Vol] 8.4 mg/dL Normal 7.6-11.0 [facility] Comment on above: Performed By: #### L 500.3600 ####[facility] [address] [place], [address] Chloride [Moles/Vol] 103 mmol/L Normal 98-108 [facility] Comment on above: Performed By: #### L 500.3600 ####[facility] [address] [place], [address] CO2 [Moles/Vol] 21.7 mmol/L Normal 21.0-32.0 [facility] Comment on above: Performed By: #### L 500.3600 ####[facility] [address] [place], [address] Creatinine [Mass/Vol] 2.14 mg/dL High 0.70-1.20 [facility] Comment on above: Performed By: #### L 500.3600 ####[facility] [address] [place], [address] ECRCL 21.83 ml/min Low 50-250 [facility] Comment on above: Performed By: #### L 500.3600 ####[facility] [address] [place], [address] GAP 16 High 5-15 [facility] Comment on above: Performed By: #### L 500.3600 ####[facility] [address] [place], [address] GFR/1.73 sq M.predicted among non-blacks MDRD (S/P/Bld) [Vol rate/Area] 23 mL/min/{1.73_m2} Low >60 [facility] Comment on above: Result Comment: mL/m in/1.73m2 CKD-EPI Creatinine Equation (2020) Performed By: #### L 500.3600 ####[facility] [address] [place], [address] Glucose [Mass/Vol] 86 mg/dL Normal 70-99 [facility] Comment on above: Performed By: #### L 500.3600 ####[facility] [address] [place], [address] Potassium [Moles/Vol] 4.1 mmol/L Normal 3.3-5.1 [facility] Comment on above: Performed By: #### L 500.3600 ####[facility] [address] [place], [address] Sodium [Moles/Vol] 140 mmol/L Normal 133-145 [facility] Comment on above: Performed By: #### L 500.3600 ####[facility] [address] [place], [address] Urea nitrogen [Mass/Vol] 55 mg/dL High 4-19 [facility] Comment on above: Performed By: #### L 500.3600 ####[facility] [address] [place], [address] CBC-Complete Blood Cnt No Di ffon 06-07-2024 Erythrocyte distribution width (RBC) [Ratio] 16.4 % High 11.6-14.6 [facility] Comment on above: Performed By: #### L 500.3600, L100.0500 ####[facility] [address] [place], [address] Hematocrit (Bld) [Volume fraction] 30.1 % Low 37-47 [facility] Comment on above: Performed By: #### L 500.3600, L100.0500 ####[facility] [address] [place], [address] Hemoglobin (Bld) [Mass/Vol] 9.3 g/dL Low 12.0-15.0 [facility] Comment on above: Performed By: #### L 500.3600, L100.0500 ####[facility] [address] [place], [address] MCH (RBC) [Entitic mass] 30.7 pg Normal 27.0-32.0 [facility] Comment on above: Performed By: #### L 500.3600, L100.0500 ####[facility] [address] [place], [address] MCHC (RBC) [Mass/Vol] 30.9 g/dL Low 32-36 [facility] Comment on above: Performed By: #### L 500.3600, L100.0500 ####[facility] [address] [place], [address] MCV (RBC) [Entitic vol] 99.3 fL High 81-99 [facility] Comment on above: Performed By: #### L 500.3600, L100.0500 ####[facility] [address] [place], [address] Platelet mean volume (Bld) [Entitic vol] 12.4 fL High 6.2-12.0 [facility] Comment on above: Performed By: #### L 500.3600, L100.0500 ####[facility] [address] [place], [address] Platelets (Bld) [#/Vol] 241 10*3/uL Normal 150-450 [facility] Comment on above: Performed By: #### L 500.3600, L100.0500 ####[facility] [address] [place], [address] RBC (Bld) [#/Vol] 3.03 10*6/uL Low 4.2-5.4 [facility] Comment on above: Performed By: #### L 500.3600, L100.0500 ####[facility] [address] [place], [address] RDW SD 59.5 fl High 35.1-43.9 [facility] Comment on above: Performed By: #### L 500.3600, L100.0500 ####[facility] [address] [place], [address] WBC (Bld) [#/Vol] 7.8 10*3/uL Normal 4.4-11.0 [facility] Comment on above: Performed By: #### L 500.3600, L100.0500 ####[facility] [address] [place], [address] Chloride measurementOrdered By: Mari Mehta on 06-07-2024 Chloride [Moles/Vol] 103 mmol/L 96-108 [facility] Chloride measurement 103 mmol/L 96-108 [facility] Erythrocyte distribution wid th (RBC) [Ratio]Ordered By: Mari Mehta on 06-07-2024 Erythrocyte distribution width ratio 16.4 % High 11.6-14.6 [facility] Erythrocyte distribution width standard deviation 59.5 fl High 35.1-43.9 [facility] Erythrocyte distribution wid th ratioOrdered By: Mari Mehta on 06-07-2024 Erythrocyte distribution width (RBC) [Ratio] 16.4 % High 11.6-14.6 [facility] Erythrocyte distribution wid th standard deviationOrdered By: Mari Mehta on 06-07-2024 Erythrocyte distribution width (RBC) [Ratio] 59.5 fl High 35.1-43.9 [facility] Hematocrit Auto (Bld) [Volum e fraction]Ordered By: Mari Mehta on 06-07-2024 Hematocrit (Bld) [Volume fraction] 30.1 % Low 37-47 [facility] Automated blood hematocrit (percentage) 30.1 % Low 37-47 [facility] Hemoglobin measurementOrdere d By: Mari Mehta on 06-07-2024 Hemoglobin (Bld) [Mass/Vol] 9.3 g/dL Low 12.0-15.0 [facility] Hemoglobin measurement 9.3 g/dL Low 12.0-15.0 [facility] MCV (RBC) [Entitic vol]Order ed By: Mari Mehta on 06-07-2024 MCV (mean corpuscular volume) determination 99.3 fL High 81-99 [facility] MCV (mean corpuscular volume ) determinationOrdered By: Mari Mehta on 06-07-2024 MCV (RBC) [Entitic vol] 99.3 fL High 81-99 [facility] Mean corpuscular hemoglobin (MCH) determinationOrdered By: Mari Mehta on 06-07-2024 MCH (RBC) [Entitic mass] 30.7 pg 27.0-32.0 [facility] Mean corpuscular hemoglobin (MCH) determination 30.7 pg 27.0-32.0 [facility] Mean corpuscular hemoglobin concentration (MCHC) determinationOrdered By: Mari Mehta on 06-07-2024 Mean corpuscular hemoglobin concentration (MCHC) determination 30.9 g/dL Low 32-36 [facility] Mean platelet volume determi nationOrdered By: Mari Mehta on 06-07-2024 Mean platelet volume determination 12.4 fl High 6.2-12.0 [facility] Platelet countOrdered By: Manjeet Mehta on 06-07-2024 Platelets (Bld) [#/Vol] 241 10*3/uL 150-450 [facility] Platelet count 241 K/mm3 150-450 [facility] RBC Auto (Bld) [#/Vol]Ordere d By: Mari Mehta on 06-07-2024 RBC (Bld) [#/Vol] 3.03 10*6/uL Low 4.2-5.4 [facility] Automated blood erythrocyte count 3.03 M/mm3 Low 4.2-5.4 [facility] Renal Profileon 06-07-2024 Albumin [Mass/Vol] 2.7 g/dL Low 3.4-4.8 [facility] Comment on above: Performed By: #### L 500.3600, L100.0500 ####[facility] [address] [place], [address] BUN/CRE 24.2 RATIO High 10-20 [facility] Comment on above: Performed By: #### L 500.3600, L100.0500 ####[facility] [address] [place], [address] Calcium [Mass/Vol] 8.4 mg/dL Normal 7.6-11.0 [facility] Comment on above: Performed By: #### L 500.3600, L100.0500 ####[facility] [address] [place], [address] Chloride [Moles/Vol] 103 mmol/L Normal 96-108 [facility] Comment on above: Performed By: #### L 500.3600, L100.0500 ####[facility] [address] [place], [address] CO2 [Moles/Vol] 25.0 mmol/L Normal 22.0-29.0 [facility] Comment on above: Performed By: #### L 500.3600, L100.0500 ####[facility] [address] [place], [address] Creatinine [Mass/Vol] 1.78 mg/dL High 0.70-1.20 [facility] Comment on above: Performed By: #### L 500.3600, L100.0500 ####[facility] [address] [place], [address] ECRCL 26.74 ml/min Low 50-250 [facility] Comment on above: Performed By: #### L 500.3600, L100.0500 ####[facility] [address] [place], [address] GFR/1.73 sq M.predicted among non-blacks MDRD (S/P/Bld) [Vol rate/Area] 28 mL/min/{1.73_m2} Low >60 [facility] Comment on above: Result Comment: mL/m in/1.73m2 CKD-EPI Creatinine Equation (2020) Performed By: #### L 500.3600, L100.0500 ####[facility] [address] [place], [address] Glucose [Mass/Vol] 89 mg/dL Normal 70-99 [facility] Comment on above: Performed By: #### L 500.3600, L100.0500 ####[facility] [address] [place], [address] Phosphate [Mass/Vol] 4.6 mg/dL High 2.7-4.5 [facility] Comment on above: Performed By: #### L 500.3600, L100.0500 ####[facility] [address] [place], [address] Potassium [Moles/Vol] 3.9 mmol/L Normal 3.3-5.1 [facility] Comment on above: Performed By: #### L 500.3600, L100.0500 ####[facility] [address] [place], [address] Sodium [Moles/Vol] 139 mmol/L Normal 133-145 [facility] Comment on above: Performed By: #### L 500.3600, L100.0500 ####[facility] [address] [place], [address] Urea nitrogen [Mass/Vol] 43 mg/dL High 4-19 [facility] Comment on above: Performed By: #### L 500.3600, L100.0500 ####[facility] [address] [place], [address] White blood cell (WBC) count Ordered By: Mari Mehta on 06-07-2024 WBC (Bld) [#/Vol] 7.8 10*3/uL 4.4-11.0 [facility] White blood cell (WBC) count 7.8 K/mm3 4.4-11.0 [facility] Wrist min 3 Viewson 06-07-19 25 Wrist min 3 Views Normal [facility] Basic Metabolic Profile (BMP )on 06-03-2024 Anion gap [Moles/Vol] 12 mmol/L Normal 5-15 [facility] Comment on above: Performed By: #### L 500.2500, L501.2300, L100.0600 ####[facility] [address] [place], [address] BUN/CRE 21.7 RATIO High 10-20 [facility] Comment on above: Performed By: #### L 500.2500, L501.2300, L100.0600 ####[facility] [address] [place], [address] Calcium [Mass/Vol] 8.2 mg/dL Normal 7.6-11.0 [facility] Comment on above: Performed By: #### L 500.2500, L501.2300, L100.0600 ####[facility] [address] [place], [address] Chloride [Moles/Vol] 104 mmol/L Normal 96-108 [facility] Comment on above: Performed By: #### L 500.2500, L501.2300, L100.0600 ####[facility] [address] [place], [address] CO2 [Moles/Vol] 23.4 mmol/L Normal 22.0-29.0 [facility] Comment on above: Performed By: #### L 500.2500, L501.2300, L100.0600 ####[facility] [address] [place], [address] Creatinine [Mass/Vol] 2.07 mg/dL High 0.70-1.20 [facility] Comment on above: Performed By: #### L 500.2500, L501.2300, L100.0600 ####[facility] [address] [place], [address] ECRCL 23.05 ml/min Normal [facility] Comment on above: Performed By: #### L 500.2500, L501.2300, L100.0600 ####[facility] [address] [place], [address] GFR/1.73 sq M.predicted among non-blacks MDRD (S/P/Bld) [Vol rate/Area] 24 mL/min/{1.73_m2} Low >60 [facility] Comment on above: Result Comment: mL/m in/1.73m2 CKD-EPI Creatinine Equation (2020) Performed By: #### L 500.2500, L501.2300, L100.0600 ####[facility] [address] [place], [address] Glucose [Mass/Vol] 90 mg/dL Normal 70-99 [facility] Comment on above: Performed By: #### L 500.2500, L501.2300, L100.0600 ####[facility] [address] [place], [address] Potassium [Moles/Vol] 4.5 mmol/L Normal 3.3-5.1 [facility] Comment on above: Result Comment: Hemo lysis present, Results??could be affected.?? Performed By: #### L 500.2500, L501.2300, L100.0600 ####[facility] [address] [place], [address] Sodium [Moles/Vol] 140 mmol/L Normal 133-145 [facility] Comment on above: Performed By: #### L 500.2500, L501.2300, L100.0600 ####[facility] [address] [place], [address] Urea nitrogen [Mass/Vol] 45 mg/dL High 4-19 [facility] Comment on above: Performed By: #### L 500.2500, L501.2300, L100.0600 ####[facility] [address] [place], [address] HH, Hemoglobin AND Hematocri ton 06-03-2024 Hematocrit (Bld) [Volume fraction] 27.1 % Low 37-47 [facility] Comment on above: Performed By: #### L 500.2500, L501.2300, L100.0600 ####[facility] [address] [place], [address] Hemoglobin (Bld) [Mass/Vol] 8.1 g/dL Low 12.0-15.0 [facility] Comment on above: Performed By: #### L 500.2500, L501.2300, L100.0600 ####[facility] [address] [place], [address] Phosphoruson 06-03-2024 Phosphate [Mass/Vol] 4.9 mg/dL High 2.7-4.5 [facility] Comment on above: Performed By: #### L 500.2500, L501.2300, L100.0600 ####[facility] [address] [place], [address] Estimated glomerular filtrat ion rate (GFR) AmericanOrdered By: Mari Mehta on 05-30-2024 Estimated glomerular filtration rate (GFR) 32 mL/min Low >60 [facility] HH, Hemoglobin AND Hematocri ton 05-30-2024 Hematocrit (Bld) [Volume fraction] 27.6 % Low 37-47 [facility] Comment on above: Performed By: #### L 500.3600, L100.0600 ####[facility] [address] [place], [address] Hemoglobin (Bld) [Mass/Vol] 8.3 g/dL Low 12.0-15.0 [facility] Comment on above: Performed By: #### L 500.3600, L100.0600 ####[facility] [address] [place], [address] Renal Profileon 05-30-2024 Albumin [Mass/Vol] 1.9 g/dL Low 3.2-5.0 [facility] Comment on above: Performed By: #### L 500.3600, L100.0600 ####[facility] [address] [place], [address] BUN/CRE 22.1 RATIO High 10-20 [facility] Comment on above: Performed By: #### L 500.3600, L100.0600 ####[facility] [address] [place], [address] CA,Total 8.4 mg/dL Low 8.5-10.1 [facility] Comment on above: Performed By: #### L 500.3600, L100.0600 ####[facility] [address] [place], [address] Chloride [Moles/Vol] 106 mmol/L Normal 98-107 [facility] Comment on above: Performed By: #### L 500.3600, L100.0600 ####[facility] [address] [place], [address] CO2 [Moles/Vol] 27.0 mmol/L Normal 21.0-32.0 [facility] Comment on above: Performed By: #### L 500.3600, L100.0600 ####[facility] [address] [place], [address] Creatinine [Mass/Vol] 1.95 mg/dL High 0.55-1.02 [facility] Comment on above: Result Comment: The validity of the calculated GFR GFRAA in patients over70 years has not been determined. Clinical correlation isessential. Performed By: #### L 500.3600, L100.0600 ####[facility] [address] [place], [address] ECRCL 24.28 ml/min Normal [facility] Comment on above: Performed By: #### L 500.3600, L100.0600 ####[facility] [address] [place], [address] EST GFR - AA 32 mL/min Low >60 [facility] Comment on above: Result Comment: Afri can [place] GFR Calc Performed By: #### L 500.3600, L100.0600 ####[facility] [address] [place], [address] GFR/1.73 sq M.predicted among non-blacks MDRD (S/P/Bld) [Vol rate/Area] 26 mL/min/{1.73_m2} Low >60 [facility] Comment on above: Result Comment: Non- GFR Calc Performed By: #### L 500.3600, L100.0600 ####[facility] [address] [place], [address] Glucose [Mass/Vol] 86 mg/dL Normal 74-106 [facility] Comment on above: Performed By: #### L 500.3600, L100.0600 ####[facility] [address] [place], [address] Phosphate [Mass/Vol] 3.7 mg/dL Normal 2.5-4.9 [facility] Comment on above: Performed By: #### L 500.3600, L100.0600 ####[facility] [address] [place], [address] Potassium [Moles/Vol] 4.8 mmol/L Normal 3.5-5.1 [facility] Comment on above: Performed By: #### L 500.3600, L100.0600 ####[facility] [address] [place], [address] Sodium [Moles/Vol] 140 mmol/L Normal 136-145 [facility] Comment on above: Performed By: #### L 500.3600, L100.0600 ####[facility] [address] [place], [address] Urea nitrogen [Mass/Vol] 43 mg/dL High 7-18 [facility] Comment on above: Performed By: #### L 500.3600, L100.0600 ####[facility] [address] [place], [address] Absolute lymphocyte countOrd ered By: Mari Mehta on 05-27-2024 Lymphocytes Auto (Unsp spec) [#/Vol] 1.59 10*3/uL 0.83-4.51 [facility] Absolute neutrophil countOrd ered By: Mari Mehta on 05-27-2024 Absolute neutrophil count 4.5 X10^3/uL 2.0-7.7 [facility] Albumin, Serumon 05-27-2024 Albumin [Mass/Vol] 2.2 g/dL Low 3.2-5.0 [facility] Comment on above: Performed By: #### L 501.1800, L500.2500, L100.0100 ####[facility] [address] [place], [address] Automated lymphocyte count a s percentage of total leukocytesOrdered By: Mari Mehta on 05-27-2024 Lymphocytes/100 WBC Auto (Unsp spec) 22.7 % 19-41 [facility] Basic Metabolic Profile (BMP )on 05-27-2024 BUN/CRE 21.2 RATIO High 10-20 [facility] Comment on above: Performed By: #### L 501.1800, L500.2500, L100.0100 ####[facility] [address] [place], [address] CA,Total 8.4 mg/dL Low 8.5-10.1 [facility] Comment on above: Performed By: #### L 501.1800, L500.2500, L100.0100 ####[facility] [address] [place], [address] Chloride [Moles/Vol] 106 mmol/L Normal 98-107 [facility] Comment on above: Performed By: #### L 501.1800, L500.2500, L100.0100 ####[facility] [address] [place], [address] CO2 [Moles/Vol] 24.0 mmol/L Normal 21.0-32.0 [facility] Comment on above: Performed By: #### L 501.1800, L500.2500, L100.0100 ####[facility] [address] [place], [address] Creatinine [Mass/Vol] 1.98 mg/dL High 0.55-1.02 [facility] Comment on above: Result Comment: The validity of the calculated GFR GFRAA in patients over70 years has not been determined. Clinical correlation isessential. Performed By: #### L 501.1800, L500.2500, L100.0100 ####[facility] [address] [place], [address] ECRCL 24.07 ml/min Normal [facility] Comment on above: Performed By: #### L 501.1800, L500.2500, L100.0100 ####[facility] [address] [place], [address] EST GFR - AA 31 mL/min Low >60 [facility] Comment on above: Result Comment: Afri can [place] GFR Calc Performed By: #### L 501.1800, L500.2500, L100.0100 ####[facility] [address] [place], [address] GAP 10 Normal 5-15 [facility] Comment on above: Performed By: #### L 501.1800, L500.2500, L100.0100 ####[facility] [address] [place], [address] GFR/1.73 sq M.predicted among non-blacks MDRD (S/P/Bld) [Vol rate/Area] 26 mL/min/{1.73_m2} Low >60 [facility] Comment on above: Result Comment: Non- GFR Calc Performed By: #### L 501.1800, L500.2500, L100.0100 ####[facility] [address] [place], [address] Glucose [Mass/Vol] 85 mg/dL Normal 74-106 [facility] Comment on above: Performed By: #### L 501.1800, L500.2500, L100.0100 ####[facility] [address] [place], [address] Potassium [Moles/Vol] 4.2 mmol/L Normal 3.5-5.1 [facility] Comment on above: Performed By: #### L 501.1800, L500.2500, L100.0100 ####[facility] [address] [place], [address] Sodium [Moles/Vol] 140 mmol/L Normal 136-145 [facility] Comment on above: Performed By: #### L 501.1800, L500.2500, L100.0100 ####[facility] [address] [place], [address] Urea nitrogen [Mass/Vol] 42 mg/dL High 7-18 [facility] Comment on above: Performed By: #### L 501.1800, L500.2500, L100.0100 ####[facility] [address] [place], [address] Basophil percentageOrdered B y: Mair Mehta on 05-27-2024 Basophils/100 WBC (Bld) 1.0 % 0-1 [facility] Basophil percentage 1.0 % 0-1 [facility] CBC W/Diff, Automatedon 05-08 Absolute Lymph 1.59 X10 3/uL Normal 0.83-4.51 [facility] Comment on above: Performed By: #### L 501.1800, L500.2500, L100.0100 ####[facility] [address] [place], [address] Absolute Neut 4.5 X10 3/uL Normal 2.0-7.7 [facility] Comment on above: Performed By: #### L 501.1800, L500.2500, L100.0100 ####[facility] [address] [place], [address] Basophils/100 WBC (Bld) 1.0 % Normal 0-1 [facility] Comment on above: Performed By: #### L 501.1800, L500.2500, L100.0100 ####[facility] [address] [place], [address] Eosinophils/100 WBC (Bld) 4.3 % Normal 0-5 [facility] Comment on above: Performed By: #### L 501.1800, L500.2500, L100.0100 ####[facility] [address] [place], [address] Erythrocyte distribution width (RBC) [Ratio] 17.0 % High 11.6-14.6 [facility] Comment on above: Performed By: #### L 501.1800, L500.2500, L100.0100 ####[facility] [address] [place], [address] Hematocrit (Bld) [Volume fraction] 28.2 % Low 37-47 [facility] Comment on above: Performed By: #### L 501.1800, L500.2500, L100.0100 ####[facility] [address] [place], [address] Hemoglobin (Bld) [Mass/Vol] 8.5 g/dL Low 12.0-15.0 [facility] Comment on above: Performed By: #### L 501.1800, L500.2500, L100.0100 ####[facility] [address] [place], [address] IG% 0.700 Normal 0.0-0.9 [facility] Comment on above: Result Comment: IG% - Immature Granulocytes (promyelocytes, myelocytes andmetamyelocytes) > 1% indicates that a LEFT SHIFT is Present. Performed By: #### L 501.1800, L500.2500, L100.0100 ####[facility] [address] [place], [address] Lymphocytes/100 WBC (Bld) 22.7 % Normal 19-41 [facility] Comment on above: Performed By: #### L 501.1800, L500.2500, L100.0100 ####[facility] [address] [place], [address] MCH (RBC) [Entitic mass] 30.1 pg Normal 27.0-32.0 [facility] Comment on above: Performed By: #### L 501.1800, L500.2500, L100.0100 ####[facility] [address] [place], [address] MCHC (RBC) [Mass/Vol] 30.1 g/dL Low 32-36 [facility] Comment on above: Performed By: #### L 501.1800, L500.2500, L100.0100 ####[facility] [address] [place], [address] MCV (RBC) [Entitic vol] 100.0 fL High 81-99 [facility] Comment on above: Performed By: #### L 501.1800, L500.2500, L100.0100 ####[facility] [address] [place], [address] Monocytes/100 WBC (Bld) 7.6 % Normal 0-10 [facility] Comment on above: Performed By: #### L 501.1800, L500.2500, L100.0100 ####[facility] [address] [place], [address] Neutrophils/100 WBC (Bld) 63.7 % Normal 47-70 [facility] Comment on above: Performed By: #### L 501.1800, L500.2500, L100.0100 ####[facility] [address] [place], [address] Nucleated RBC (Bld) [#/Vol] 0 10*3/uL Normal 0-5 [facility] Comment on above: Performed By: #### L 501.1800, L500.2500, L100.0100 ####[facility] [address] [place], [address] Platelet mean volume (Bld) [Entitic vol] 12.1 fL High 6.2-12.0 [facility] Comment on above: Performed By: #### L 501.1800, L500.2500, L100.0100 ####[facility] [address] [place], [address] Platelets (Bld) [#/Vol] 314 10*3/uL Normal 150-450 [facility] Comment on above: Performed By: #### L 501.1800, L500.2500, L100.0100 ####[facility] [address] [place], [address] RBC (Bld) [#/Vol] 2.82 10*6/uL Low 4.2-5.4 [facility] Comment on above: Performed By: #### L 501.1800, L500.2500, L100.0100 ####[facility] [address] [place], [address] RDW SD 62.2 fl High 35.1-43.9 [facility] Comment on above: Performed By: #### L 501.1800, L500.2500, L100.0100 ####[facility] [address] [place], [address] WBC (Bld) [#/Vol] 7.0 10*3/uL Normal 4.4-11.0 [facility] Comment on above: Performed By: #### L 501.1800, L500.2500, L100.0100 ####[facility] [address] [place], [address] Eosinophil percentageOrdered By: Mari Mehta on 05-27-2024 Eosinophils/100 WBC (Bld) 4.3 % 0-5 [facility] Eosinophil percentage 4.3 % 0-5 [facility] Immature granulocytes/100 WB C Auto (Bld)Ordered By: Mari Mehta on 05-27-2024 Immature granulocytes/100 WBC (Bld) 0.700 % 0.0-0.9 [facility] Automated immature granulocyte percentage 0.700 % 0.0-0.9 [facility] Lymphocytes Auto (Unsp spec) [#/Vol]Ordered By: Mari Mehta on 05-27-2024 Absolute lymphocyte count 1.59 X10^3/uL 0.83-4.51 [facility] Lymphocytes/100 WBC Auto (Un sp spec)Ordered By: Mari Mehta on 05-27-2024 Automated lymphocyte count as percentage of total leukocytes 22.7 % 19-41 [facility] Monocyte percentageOrdered B y: Mari Mehta on 05-27-2024 Monocytes/100 WBC (Bld) 7.6 % 0-10 [facility] Monocyte percentage 7.6 % 0-10 [facility] Neutrophil percentageOrdered By: Mari Mehta on 05-27-2024 Neutrophils/100 WBC (Bld) 63.7 % 47-70 [facility] Neutrophil percentage 63.7 % 47-70 [facility] Nucleated red blood cell per centageOrdered By: Mari Mehta on 05-27-2024 Nucleated red blood cell percentage 0 % 0-5 [facility] HLA B27on 05-25-2024 HLA B27 Negative Normal . [facility] Comment on above: Result Comment: HLA- B*27 LlzgmfvyL58 allele interpretation for all loci based on IMGT/HLAdatabase version 3.51.0This test was developed and its performance characteristicsdetermined by [facility]. It has not been cleared or approvedby the Food and Drug Administration.The FDA has determined that such clearance or approval isnot necessary.[facility] CLIA ID Number [id number] test was performed using Polymerase Chain Reaction(PCR) and Sequence Specific Oligonucleotide Probes (SSOP)technique. Sequence Based Typing (SBT) may be used as asupplemental method when necessary.If you have questions, please call [facility] customer serviceat or email at [email or web address].Performed at: [address] [place] [address] [id number] Director: Marie Nowak PhD, Phone: [phone] Performed By: #### L 3410.1400, L101.9900 ####[facility] [address] [place], [address] Basic Metabolic Profile (BMP )on 05-23-2024 BUN Normal 7-18 [facility] Comment on above: Order Comment: uto x 2 phleb nurse adela was notified. Result Comment: OM C ANCEL REQUEST Performed By: #### L 500.2500 ####[facility] [address] [place], [address] BUN/CRE Normal 10-20 [facility] Comment on above: Order Comment: uto x 2 phleb nurse adela was notified. Result Comment: OM C ANCEL REQUEST Performed By: #### L 500.2500 ####[facility] [address] [place], [address] CA,Total Normal 8.5-10.1 [facility] Comment on above: Order Comment: uto x 2 phleb nurse adela was notified. Result Comment: OM C ANCEL REQUEST Performed By: #### L 500.2500 ####[facility] [address] [place], [address] CL Normal 98-107 [facility] Comment on above: Order Comment: uto x 2 phleb nurse adela was notified. Result Comment: OM C ANCEL REQUEST Performed By: #### L 500.2500 ####[facility] [address] [place], [address] CO2 Normal 21.0-32.0 [facility] Comment on above: Order Comment: uto x 2 phleb nurse adela was notified. Result Comment: OM C ANCEL REQUEST Performed By: #### L 500.2500 ####[facility] [address] [place], [address] CREAT,SERUM Normal 0.55-1.02 [facility] Comment on above: Order Comment: uto x 2 phleb nurse adela was notified. Result Comment: OM C ANCEL REQUEST Performed By: #### L 500.2500 ####[facility] [address] [place], [address] EST GFR Normal >60 [facility] Comment on above: Order Comment: uto x 2 phleb nurse adela was notified. Result Comment: OM C ANCEL REQUEST Performed By: #### L 500.2500 ####[facility] [address] [place], [address] EST GFR - AA Normal >60 [facility] Comment on above: Order Comment: uto x 2 phleb nurse adela was notified. Result Comment: OM C ANCEL REQUEST Performed By: #### L 500.2500 ####[facility] [address] [place], [address] GAP Normal 5-15 [facility] Comment on above: Order Comment: uto x 2 phleb nurse adela was notified. Result Comment: OM C ANCEL REQUEST Performed By: #### L 500.2500 ####[facility] [address] [place], [address] GLU Normal 74-106 [facility] Comment on above: Order Comment: uto x 2 phleb nurse adela was notified. Result Comment: OM C ANCEL REQUEST Performed By: #### L 500.2500 ####[facility] [address] [place], [address] Potassium Normal 3.5-5.1 [facility] Comment on above: Order Comment: uto x 2 phleb nurse adela was notified. Result Comment: OM C ANCEL REQUEST Performed By: #### L 500.2500 ####[facility] [address] [place], [address] Basic Metabolic Profile (BMP) Normal 136-145 [facility] Comment on above: Order Comment: uto x 2 phleb nurse adela was notified. Result Comment: OM C ANCEL REQUEST Performed By: #### L 500.2500 ####[facility] [address] [place], [address] Modified Barium Swallow Stud yon 05-23-2024 Modified Barium Swallow Study Normal [facility] Basic Metabolic Profile (BMP )on 05-22-2024 BUN/CRE 22.8 RATIO High 10-20 [facility] Comment on above: Performed By: #### L 500.2500, L100.0500 ####[facility] [address] [place], [address] CA,Total 8.2 mg/dL Low 8.5-10.1 [facility] Comment on above: Performed By: #### L 500.2500, L100.0500 ####[facility] [address] [place], [address] Chloride [Moles/Vol] 111 mmol/L High 98-107 [facility] Comment on above: Performed By: #### L 500.2500, L100.0500 ####[facility] [address] [place], [address] CO2 [Moles/Vol] 27.0 mmol/L Normal 21.0-32.0 [facility] Comment on above: Performed By: #### L 500.2500, L100.0500 ####[facility] [address] [place], [address] Creatinine [Mass/Vol] 1.84 mg/dL High 0.55-1.02 [facility] Comment on above: Result Comment: The validity of the calculated GFR GFRAA in patients over70 years has not been determined. Clinical correlation isessential. Performed By: #### L 500.2500, L100.0500 ####[facility] [address] [place], [address] ECRCL 25.90 ml/min Normal [facility] Comment on above: Performed By: #### L 500.2500, L100.0500 ####[facility] [address] [place], [address] EST GFR - AA 34 mL/min Low >60 [facility] Comment on above: Result Comment: Afri can [place] GFR Calc Performed By: #### L 500.2500, L100.0500 ####[facility] [address] [place], [address] GAP 4 Low 5-15 [facility] Comment on above: Performed By: #### L 500.2500, L100.0500 ####[facility] [address] [place], [address] GFR/1.73 sq M.predicted among non-blacks MDRD (S/P/Bld) [Vol rate/Area] 28 mL/min/{1.73_m2} Low >60 [facility] Comment on above: Result Comment: Non- GFR Calc Performed By: #### L 500.2500, L100.0500 ####[facility] [address] [place], [address] Glucose [Mass/Vol] 87 mg/dL Normal 74-106 [facility] Comment on above: Performed By: #### L 500.2500, L100.0500 ####[facility] [address] [place], [address] Potassium [Moles/Vol] 4.2 mmol/L Normal 3.5-5.1 [facility] Comment on above: Performed By: #### L 500.2500, L100.0500 ####[facility] [address] [place], [address] Sodium [Moles/Vol] 142 mmol/L Normal 136-145 [facility] Comment on above: Performed By: #### L 500.2500, L100.0500 ####[facility] [address] [place], [address] Urea nitrogen [Mass/Vol] 42 mg/dL High 7-18 [facility] Comment on above: Performed By: #### L 500.2500, L100.0500 ####[facility] [address] [place], [address] CBC-Complete Blood Cnt No Di ffon 05-22-2024 Erythrocyte distribution width (RBC) [Ratio] 17.3 % High 11.6-14.6 [facility] Comment on above: Performed By: #### L 500.2500, L100.0500 ####[facility] [address] [place], [address] Hematocrit (Bld) [Volume fraction] 27.1 % Low 37-47 [facility] Comment on above: Performed By: #### L 500.2500, L100.0500 ####[facility] [address] [place], [address] Hemoglobin (Bld) [Mass/Vol] 8.1 g/dL Low 12.0-15.0 [facility] Comment on above: Performed By: #### L 500.2500, L100.0500 ####[facility] [address] [place], [address] MCH (RBC) [Entitic mass] 30.6 pg Normal 27.0-32.0 [facility] Comment on above: Performed By: #### L 500.2500, L100.0500 ####[facility] [address] [place], [address] MCHC (RBC) [Mass/Vol] 29.9 g/dL Low 32-36 [facility] Comment on above: Performed By: #### L 500.2500, L100.0500 ####[facility] [address] [place], [address] MCV (RBC) [Entitic vol] 102.3 fL High 81-99 [facility] Comment on above: Performed By: #### L 500.2500, L100.0500 ####[facility] [address] [place], [address] Platelet mean volume (Bld) [Entitic vol] 12.2 fL High 6.2-12.0 [facility] Comment on above: Performed By: #### L 500.2500, L100.0500 ####[facility] [address] [place], [address] Platelets (Bld) [#/Vol] 392 10*3/uL Normal 150-450 [facility] Comment on above: Performed By: #### L 500.2500, L100.0500 ####[facility] [address] [place], [address] RBC (Bld) [#/Vol] 2.65 10*6/uL Low 4.2-5.4 [facility] Comment on above: Performed By: #### L 500.2500, L100.0500 ####[facility] [address] [place], [address] RDW SD 64.2 fl High 35.1-43.9 [facility] Comment on above: Performed By: #### L 500.2500, L100.0500 ####[facility] [address] [place], [address] WBC (Bld) [#/Vol] 5.7 10*3/uL Normal 4.4-11.0 [facility] Comment on above: Performed By: #### L 500.2500, L100.0500 ####[facility] [address] [place], [address] BRCon 05-20-2024 RC Normal [facility] Comment on above: Result Comment: [id number] ABN RC TRANSFUSED 05/20/24 [id number] ABN RC NOT AVAILABLE Performed By: #### B TS, BRC, L100.0600 ####[facility] [address] [place], [address] Basic Metabolic Profile (BMP )on 05-20-2024 BUN/CRE 25.4 RATIO High 10-20 [facility] Comment on above: Performed By: #### L 500.2500 ####[facility] [address] [place], [address] CA,Total 8.5 mg/dL Normal 8.5-10.1 [facility] Comment on above: Performed By: #### L 500.2500 ####[facility] [address] [place], [address] Chloride [Moles/Vol] 111 mmol/L High 98-107 [facility] Comment on above: Performed By: #### L 500.2500 ####[facility] [address] [place], [address] CO2 [Moles/Vol] 29.0 mmol/L Normal 21.0-32.0 [facility] Comment on above: Performed By: #### L 500.2500 ####[facility] [address] [place], [address] Creatinine [Mass/Vol] 1.89 mg/dL High 0.55-1.02 [facility] Comment on above: Result Comment: The validity of the calculated GFR GFRAA in patients over70 years has not been determined. Clinical correlation isessential. Performed By: #### L 500.2500 ####[facility] [address] [place], [address] ECRCL 25.21 ml/min Normal [facility] Comment on above: Performed By: #### L 500.2500 ####[facility] [address] [place], [address] EST GFR - AA 33 mL/min Low >60 [facility] Comment on above: Result Comment: Afri can [place] GFR Calc Performed By: #### L 500.2500 ####[facility] [address] [place], [address] GAP 4 Low 5-15 [facility] Comment on above: Performed By: #### L 500.2500 ####[facility] [address] [place], [address] GFR/1.73 sq M.predicted among non-blacks MDRD (S/P/Bld) [Vol rate/Area] 27 mL/min/{1.73_m2} Low >60 [facility] Comment on above: Result Comment: Non- GFR Calc Performed By: #### L 500.2500 ####[facility] [address] [place], [address] Glucose [Mass/Vol] 95 mg/dL Normal 74-106 [facility] Comment on above: Performed By: #### L 500.2500 ####[facility] [address] [place], [address] Potassium [Moles/Vol] 4.6 mmol/L Normal 3.5-5.1 [facility] Comment on above: Performed By: #### L 500.2500 ####[facility] [address] [place], [address] Sodium [Moles/Vol] 144 mmol/L Normal 136-145 [facility] Comment on above: Performed By: #### L 500.2500 ####[facility] [address] [place], [address] Urea nitrogen [Mass/Vol] 48 mg/dL High 7-18 [facility] Comment on above: Performed By: #### L 500.2500 ####[facility] [address] [place], [address] HH, Hemoglobin AND Hematocri ton 05-20-2024 Hematocrit (Bld) [Volume fraction] 25.0 % Low 37-47 [facility] Comment on above: Performed By: #### B GIN, BR, L100.0600 ####[facility] [address] [place], [address] Hemoglobin (Bld) [Mass/Vol] 7.4 g/dL Low 12.0-15.0 [facility] Comment on above: Performed By: #### B GIN, BR, L100.0600 ####[facility] [address] [place], [address] Stool Occult Blood iFOBon STOB Normal [facility] Comment on above: Performed By: #### M 100.7900 ####[facility] [address] [place], [address] Type AND Screenon 05-20-2024 ABO and Rh group Nom (Bld) Blood group AB Rh(D) positive Normal [facility] Comment on above: Order Comment: CMV N EG? NNumber of units to transfuse: 1Is there an orthostatic change in pt's BP(SBP drop>10mmHg)? YIs pt's HR > 100 bpm? NReason for Ordering Blood: AcuteAre the blood/blood products to be transfused? YIs the patient having/had surgery? Hanna Rodriges Performed By: #### B GIN, [facility], L100.0600 ####[facility] [address] [place], [address] Ab SCREEN GEL Negative Normal [facility] Comment on above: Order Comment: CMV N EG? NNumber of units to transfuse: 1Is there an orthostatic change in pt's BP(SBP drop>10mmHg)? YIs pt's HR > 100 bpm? NReason for Ordering Blood: AcuteAre the blood/blood products to be transfused? YIs the patient having/had surgery? Hanna Rodriges Performed By: #### B GIN, BRC, L100.0600 ####[facility] [address] [place], [address] ALP [Catalytic activity/Vol] Ordered By: Mari Landeroskunal on 05-19-2024 Serum or plasma alkaline phosphatase measurement 78 U/L 45-117 [facility] ALT [Catalytic activity/Vol] Ordered By: Mari Landeroskunal on 05-19-2024 Serum or plasma alanine aminotransferase (ALT) measurement 24 U/L 13-56 [facility] Basic Metabolic Profile (BMP )on 05-19-2024 BUN/CRE 32.5 RATIO High 10-20 [facility] Comment on above: Performed By: #### L 500.2500, L501.5200, L100.0500 ####[facility] [address] [place], [address] CA,Total 7.9 mg/dL Low 8.5-10.1 [facility] Comment on above: Performed By: #### L 500.2500, L501.5200, L100.0500 ####[facility] [address] [place], [address] Chloride [Moles/Vol] 112 mmol/L High 98-107 [facility] Comment on above: Performed By: #### L 500.2500, L501.5200, L100.0500 ####[facility] [address] [place], [address] CO2 [Moles/Vol] 27.0 mmol/L Normal 21.0-32.0 [facility] Comment on above: Performed By: #### L 500.2500, L501.5200, L100.0500 ####[facility] [address] [place], [address] Creatinine [Mass/Vol] 1.69 mg/dL High 0.55-1.02 [facility] Comment on above: Result Comment: The validity of the calculated GFR GFRAA in patients over70 years has not been determined. Clinical correlation isessential. Performed By: #### L 500.2500, L501.5200, L100.0500 ####[facility] [address] [place], [address] ECRCL 28.20 ml/min Normal [facility] Comment on above: Performed By: #### L 500.2500, L501.5200, L100.0500 ####[facility] [address] [place], [address] EST GFR - AA 37 mL/min Low >60 [facility] Comment on above: Result Comment: Afri can [place]er GFR Calc Performed By: #### L 500.2500, L501.5200, L100.0500 ####[facility] [address] [place], [address] GAP 6 Normal 5-15 [facility] Comment on above: Performed By: #### L 500.2500, L501.5200, L100.0500 ####[facility] [address] [place], [address] GFR/1.73 sq M.predicted among non-blacks MDRD (S/P/Bld) [Vol rate/Area] 31 mL/min/{1.73_m2} Low >60 [facility] Comment on above: Result Comment: Non- GFR Calc Performed By: #### L 500.2500, L501.5200, L100.0500 ####[facility] [address] [place], [address] Glucose [Mass/Vol] 89 mg/dL Normal 74-106 [facility] Comment on above: Performed By: #### L 500.2500, L501.5200, L100.0500 ####[facility] [address] [place], [address] Potassium [Moles/Vol] 4.2 mmol/L Normal 3.5-5.1 [facility] Comment on above: Performed By: #### L 500.2500, L501.5200, L100.0500 ####[facility] [address] [place], [address] Sodium [Moles/Vol] 145 mmol/L Normal 136-145 [facility] Comment on above: Performed By: #### L 500.2500, L501.5200, L100.0500 ####[facility] [address] [place], [address] Urea nitrogen [Mass/Vol] 55 mg/dL High 7-18 [facility] Comment on above: Performed By: #### L 500.2500, L501.5200, L100.0500 ####[facility] [address] [place], [address] Bilirubin directOrdered By: Mari Mehta on 05-19-2024 Bilirubin.direct [Mass/Vol] 0.16 mg/dL 0.00-0.30 [facility] Bilirubin, totalOrdered By: Mari Mehta on 05-19-2024 Bilirubin [Mass/Vol] 0.40 mg/dL 0.20-1.00 [facility] Bilirubin, total 0.40 mg/dL 0.20-1.00 [facility] Bilirubin.direct [Mass/Vol]O rdered By: Mari Mehta on 05-19-2024 Bilirubin direct 0.16 mg/dL 0.00-0.30 [facility] C-reactive protein measureme nt by high sensitivity methodOrdered By: Mari Mehta on 05-19-2024 C-reactive protein measurement by high sensitivity method 80.50 mg/L High 0.0-3.0 [facility] C-reactive protein measurement by high sensitivity method 80.50 mg/L High 0.0-3.0 [facility] CBC-Complete Blood Cnt No Di ffon 05-19-2024 Erythrocyte distribution width (RBC) [Ratio] 17.2 % High 11.6-14.6 [facility] Comment on above: Performed By: #### L 500.2500, L501.5200, L100.0500 ####[facility] [address] [place], [address] Hematocrit (Bld) [Volume fraction] 23.4 % Low 37-47 [facility] Comment on above: Performed By: #### L 500.2500, L501.5200, L100.0500 ####[facility] [address] [place], [address] Hemoglobin (Bld) [Mass/Vol] 7.0 g/dL Low 12.0-15.0 [facility] Comment on above: Performed By: #### L 500.2500, L501.5200, L100.0500 ####[facility] [address] [place], [address] MCH (RBC) [Entitic mass] 30.7 pg Normal 27.0-32.0 [facility] Comment on above: Performed By: #### L 500.2500, L501.5200, L100.0500 ####[facility] [address] [place], [address] MCHC (RBC) [Mass/Vol] 29.9 g/dL Low 32-36 [facility] Comment on above: Performed By: #### L 500.2500, L501.5200, L100.0500 ####[facility] [address] [place], [address] MCV (RBC) [Entitic vol] 102.6 fL High 81-99 [facility] Comment on above: Performed By: #### L 500.2500, L501.5200, L100.0500 ####[facility] [address] [place], [address] Platelet mean volume (Bld) [Entitic vol] 12.6 fL High 6.2-12.0 [facility] Comment on above: Performed By: #### L 500.2500, L501.5200, L100.0500 ####[facility] [address] [place], [address] Platelets (Bld) [#/Vol] 441 10*3/uL Normal 150-450 [facility] Comment on above: Performed By: #### L 500.2500, L501.5200, L100.0500 ####[facility] [address] [place], [address] RBC (Bld) [#/Vol] 2.28 10*6/uL Low 4.2-5.4 [facility] Comment on above: Performed By: #### L 500.2500, L501.5200, L100.0500 ####[facility] [address] [place], [address] RDW SD 64.2 fl High 35.1-43.9 [facility] Comment on above: Performed By: #### L 500.2500, L501.5200, L100.0500 ####[facility] [address] [place], [address] WBC (Bld) [#/Vol] 6.3 10*3/uL Normal 4.4-11.0 [facility] Comment on above: Performed By: #### L 500.2500, L501.5200, L100.0500 ####[facility] [address] [place], [address] CRPon 05-19-2024 C-REACTIVE PROT 80.50 mg/L High 0.0-3.0 [facility] Comment on above: Result Comment: C-Re active Protein (CRP) provides useful information for thediagnosis, therapy and monitoring of inflammatory processesand associated diseases. For the evaluation of Relative Riskfor Cardiovascular Disease, a High Sensitivity CRP (HSCRP)should be ordered. Performed By: #### L 503.6030, L501.5200, L501.6710, L501.2300, L500.3400 ####[facility] [address] [place], [address] ESR (Bld) [Velocity]Ordered By: Mari Mehta on 05-19-2024 Erythrocyte sedimentation rate 32 mm/hr High 0-30 [facility] Erythrocyte Sed Rateon 05-19 SED RATE 32 mm/hr High 0-30 [facility] Comment on above: Performed By: #### L 3410.1400, L101.9900 ####[facility] [address] [place], [address] Erythrocyte sedimentation ra teOrdered By: Mari Landeroskunal on 05-19-2024 ESR (Bld) [Velocity] 32 mm/h High 0-30 [facility] Human leukocyte antigen (HLA ) B27 typingOrdered By: Mari Janine on 05-19-2024 Human leukocyte antigen (HLA) B27 typing Negative . [facility] Iron (Unsp spec) [Mass/Mass] Ordered By: Mari Janine on 05-19-2024 Iron measurement (mass/mass) 47 ug/dL Low 50-170 [facility] Iron measurement (mass/mass) Ordered By: Mari Janine on 05-19-2024 Iron (Unsp spec) [Mass/Mass] 47 ug/dL Low 50-170 [facility] Iron saturation [Mass fracti on]Ordered By: Mari Mehta on 05-19-2024 Serum or plasma iron saturation measurement (mass fraction) 19.9 % 15.0-55.0 [facility] Iron+Iron Binding Capacityon 05-19-2024 Iron [Mass/Vol] 47 ug/dL Low 50-170 [facility] Comment on above: Performed By: #### L 503.6030, L501.5200, L501.6710, L501.2300, L500.3400 ####[facility] [address] [place], [address] IRON SATURATION 19.9 Normal 15.0-55.0 [facility] Comment on above: Performed By: #### L 503.6030, L501.5200, L501.6710, L501.2300, L500.3400 ####[facility] [address] [place], [address] TIBC 236 ug/dL Low 250-450 [facility] Comment on above: Performed By: #### L 503.6030, L501.5200, L501.6710, L501.2300, L500.3400 ####[facility] [address] [place], [address] Liver Profileon 05-19-2024 Albumin [Mass/Vol] 2.2 g/dL Low 3.2-5.0 [facility] Comment on above: Performed By: #### L 503.6030, L501.5200, L501.6710, L501.2300, L500.3400 ####[facility] [address] [place], [address] ALK P 78 U/L Normal 45-117 [facility] Comment on above: Performed By: #### L 503.6030, L501.5200, L501.6710, L501.2300, L500.3400 ####[facility] [address] [place], [address] ALT [Catalytic activity/Vol] 24 U/L Normal 13-56 [facility] Comment on above: Performed By: #### L 503.6030, L501.5200, L501.6710, L501.2300, L500.3400 ####[facility] [address] [place], [address] AST [Catalytic activity/Vol] 19 U/L Normal 15-37 [facility] Comment on above: Performed By: #### L 503.6030, L501.5200, L501.6710, L501.2300, L500.3400 ####[facility] [address] [place], [address] Bilirubin [Mass/Vol] 0.40 mg/dL Normal 0.20-1.00 [facility] Comment on above: Result Comment: For patients on eltrombopag therapy, use of Dimension Leslie TBIL is not recommended. Performed By: #### L 503.6030, L501.5200, L501.6710, L501.2300, L500.3400 ####[facility] [address] [place], [address] Bilirubin.direct [Mass/Vol] 0.16 mg/dL Normal 0.00-0.30 [facility] Comment on above: Performed By: #### L 503.6030, L501.5200, L501.6710, L501.2300, L500.3400 ####[facility] [address] [place], [address] Globulin (S) [Mass/Vol] 3.7 g/dL Normal 2.2-4.2 [facility] Comment on above: Performed By: #### L 503.6030, L501.5200, L501.6710, L501.2300, L500.3400 ####[facility] [address] [place], [address] T PROT 5.9 g/dL Low 6.4-8.2 [facility] Comment on above: Performed By: #### L 503.6030, L501.5200, L501.6710, L501.2300, L500.3400 ####[facility] [address] [place], [address] Lower GI hemoglobin IA Ql (S tl)Ordered By: Mari Mehta on 05-19-2024 Stool gastrointestinal hemoglobin detection by immunologic method Positive Abnormal [facility] Magnesiumon 05-19-2024 Magnesium [Mass/Vol] 2.2 mg/dL Normal 1.6-2.6 [facility] Comment on above: Performed By: #### L 503.6030, L501.5200, L501.6710, L501.2300, L500.3400 ####[facility] [address] [place], [address] Magnesium [Mass/Vol] 2.1 mg/dL Normal 1.6-2.6 [facility] Comment on above: Performed By: #### L 500.2500, L501.5200, L100.0500 ####[facility] [address] [place], [address] Magnesium measurementOrdered By: Mari Janine on 05-19-2024 Magnesium [Mass/Vol] 2.2 mg/dL 1.6-2.6 [facility] Magnesium measurement 2.2 mg/dL 1.6-2.6 [facility] No Panel InformationOrdered By: Mari Mehta on 05-19-2024 19 U/L 15-37 [facility] Phosphoruson 05-19-2024 Phosphate [Mass/Vol] 3.6 mg/dL Normal 2.5-4.9 [facility] Comment on above: Performed By: #### L 503.6030, L501.5200, L501.6710, L501.2300, L500.3400 ####[facility] [address] [place], [address] Phosphate [Mass/Vol] 3.9 mg/dL Normal 2.5-4.9 [facility] Comment on above: Performed By: #### L 501.2300 ####[facility] [address] [place], [address] Serum globulin measurementOr dered By: Mari Mehta on 05-19-2024 Globulin (S) [Mass/Vol] 3.7 g/dL 2.2-4.2 [facility] Serum globulin measurement 3.7 g/dL 2.2-4.2 [facility] Serum or plasma alanine huertas otransferase (ALT) measurementOrdered By: Mari Mehta on 05-19-2024 ALT [Catalytic activity/Vol] 24 U/L 13-56 [facility] Serum or plasma alkaline mariya sphatase measurementOrdered By: Mari Mehta on 05-19-2024 ALP [Catalytic activity/Vol] 78 U/L 45-117 [facility] Serum or plasma iron saturat ion measurement (mass fraction)Ordered By: Mari Mehta on 05-19-2024 Iron saturation [Mass fraction] 19.9 % 15.0-55.0 [facility] Stool gastrointestinal hemog lobin detection by immunologic methodOrdered By: Mari Landeroskunal on 05-19-2024 Lower GI hemoglobin IA Ql (Stl) Positive Abnormal [facility] TIBCOrdered By: Mari Mehta on 05-19-2024 TIBC 236 ug/dL Low 250-450 [facility] Thoracic Spine 3 Viewson Thoracic Spine [address] [facility] Total proteinOrdered By: Shirley Mehta on 05-19-2024 Protein [Mass/Vol] 5.9 g/dL Low 6.4-8.2 [facility] Total protein 5.9 g/dL Low 6.4-8.2 [facility] GLUCOSE POCon 05-18-2024 Glucose [Mass/Vol] 94 mg/dL 70 - 99 mg/dL [facility] Glucose [Mass/Vol] 93 mg/dL 70 - 99 mg/dL [facility] Glucose [Mass/Vol] 91 mg/dL 70 - 99 mg/dL [facility] POC Sample Type [facility] MAGNESIUMon 05-18-2024 Magnesium [Mass/Vol] 1.9 mg/dL 1.6 - 2 .6 mg/dL [facility] Magnesium [Mass/Vol] 1.9 mg/dL Normal 1.6-2.6 [facility] Comment on above: Performed By: #### M GO, CHM7, IPB, CKB, TRIG, LDO #### [facility] (DEFAULT) [address] [place] [address] No Panel Informationon 05-18 Interpretation and review of laboratory results Normal [facility] PHOSPHATE, INORGANICon 05-18 Phosphate [Mass/Vol] 4.1 mg/dL 2.2 - 4 .6 mg/dL [facility] Phosphorous 4.1 mg/dL Normal 2.2-4.6 [facility] Comment on above: Performed By: #### M ROXY TELLO, IPB, CKB, TRIG, LDO #### [facility] (DEFAULT) [address] [place] [address] CBC,PLATELETSon 05-17-2024 Erythrocyte distribution width (RBC) [Ratio] 17.2 % High 10.8 - 14.9 % [facility] Hematocrit (Bld) [Volume fraction] 25 % Low 34.9 - 44.3 % [facility] Hemoglobin (Bld) [Mass/Vol] 7.4 g/dL Low 11.4 - 15.2 g/dL [facility] Interpretation and review of laboratory results Abnormal [facility] MCH (RBC) [Entitic mass] 30.3 pg 25.9 - 33.9 pg [facility] MCHC (RBC) [Mass/Vol] 29.6 g/dL Low 31.4 - 35.9 g/dL [facility] MCV (RBC) [Entitic vol] 102.5 fL High 79.6 - 97.7 fL [facility] Platelet mean volume (Bld) [Entitic vol] 12 fL 8.5 - 12.2 fL [facility] Platelets (Bld) [#/Vol] 428 10*3/uL High 150 - 393 K/uL [facility] RBC (Bld) [#/Vol] 2.44 10*6/uL Low [facility] WBC (Bld) [#/Vol] 8.81 10*3/uL 3.99 - 11.19 K/uL [facility] Hematocrit (Bld) [Volume fraction] 25.0 % Low 34.9-44.3 [facility] Comment on above: Performed By: #### M CHEMO TELLO7, IPB, CKB, TRIG, LDO #### [facility] (DEFAULT) [address] [place] [address] Hemoglobin (Bld) [Mass/Vol] 7.4 g/dL Low 11.4-15.2 [facility] Comment on above: Performed By: #### M GO, CHM7, IPB, CKB, TRIG, LDO #### [facility] (DEFAULT) [address] [place] [address] MCV (RBC) [Entitic vol] 102.5 fL High 79.6-97.7 [facility] Comment on above: Performed By: #### M GO, CHM7, IPB, CKB, TRIG, LDO #### [facility] (DEFAULT) [address] [place] [address] Mean Cell Hgb 30.3 pg Normal 25.9-33.9 [facility] Comment on above: Performed By: #### M GO, CHM7, IPB, CKB, TRIG, LDO #### [facility] (DEFAULT) [address] [place] [address] Mean Cell Hgb Conc 29.6 g/dL Low 31.4-35.9 [facility] Comment on above: Performed By: #### M GO, CHM7, IPB, CKB, TRIG, LDO #### [facility] (DEFAULT) [address] [place] [address] Platelet mean volume (Bld) [Entitic vol] 12.0 fL Normal 8.5-12.2 [facility] Comment on above: Performed By: #### M GO, CHM7, IPB, CKB, TRIG, LDO #### [facility] (DEFAULT) [address] [place] [address] Platelets (Bld) [#/Vol] 428 10*3/uL High 150-393 [facility] Comment on above: Performed By: #### M GO, CHM7, IPB, CKB, TRIG, LDO #### [facility] (DEFAULT) [address] [place] [address] RBC (Bld) [#/Vol] 2.44 10*6/uL Low 3.91-5.04 [facility] Comment on above: Performed By: #### M GO, CHM7, IPB, CKB, TRIG, LDO #### [facility] (DEFAULT) [address] [place] [address] RBC Distribution 17.2 % High 10.8-14.9 [facility] Comment on above: Performed By: #### M GO, CHM7, IPB, CKB, TRIG, LDO #### [facility] (DEFAULT) [address] [place] [address] WBC (Bld) [#/Vol] 8.81 10*3/uL Normal 3.99-11.19 [facility] Comment on above: Performed By: #### M GO, CHM7, IPB, CKB, TRIG, LDO #### [facility] (DEFAULT) [address] [place] [address] CHEM 7 (LYTES,BUN,CREA,GLUC) on 05-17-2024 Anion gap [Moles/Vol] 11 mmol/L 7 - 17 mmol/L [facility] Chloride [Moles/Vol] 106 mmol/L 98 - 10 8 mmol/L [facility] CO2 [Moles/Vol] 28 mmol/L 21 - 31 mmol/L [facility] Creatinine [Mass/Vol] 1.68 mg/dL High 0.50 - 1.20 mg/dL [facility] eGFR, CKD-EPI, Female 30 Low - PINF [facility] Glucose [Mass/Vol] 107 mg/dL High 70 - 99 mg/dL [facility] Interpretation and review of laboratory results Abnormal [facility] Osmolality Calc [Osmolality] 313 High [facility] Potassium [Moles/Vol] 4.2 mmol/L 3.5 - 5.0 mmol/L [facility] Sodium [Moles/Vol] 141 mmol/L 135 - 145 mmol/L [facility] Urea nitrogen [Mass/Vol] 61 mg/dL High 7 - 25 mg/dL [facility] Urea nitrogen/Creatinine [Mass ratio] 36 mg/mg [facility] Anion gap [Moles/Vol] 11 mmol/L Normal 7-17 [facility] Comment on above: Performed By: #### M GO, CHM7, IPB, CKB, TRIG, LDO #### [facility] (DEFAULT) [address] [place] [address] Chloride [Moles/Vol] 106 mmol/L Normal 98-108 [facility] Comment on above: Performed By: #### M GO, CHM7, IPB, CKB, TRIG, LDO #### [facility] (DEFAULT) [address] [place] [address] CO2 [Moles/Vol] 28 mmol/L Normal 21-31 [facility] Comment on above: Performed By: #### M GO, CHM7, IPB, CKB, TRIG, LDO #### [facility] (DEFAULT) [address] [place] [address] Creatinine [Mass/Vol] 1.68 mg/dL High 0.50-1.20 [facility] Comment on above: Performed By: #### M GO, CHM7, IPB, CKB, TRIG, LDO #### [facility] (DEFAULT) [address] [place] [address] GFR/1.73 sq M.predicted among non-blacks MDRD (S/P/Bld) [Vol rate/Area] 30 mL/min/{1.73_m2} Low >=60 [facility] Comment on above: Result Comment: Repo rted eGFR is based on the CKD-EPI 2020 equation using creatinine, age, and sex. Performed By: #### M GO, CHM7, IPB, CKB, TRIG, LDO #### [facility] (DEFAULT) [address] [place] [address] Glucose [Mass/Vol] 107 mg/dL High 70-99 [facility] Comment on above: Performed By: #### M GO, CHM7, IPB, CKB, TRIG, LDO #### [facility] (DEFAULT) [address] [place] [address] Osmolality [Osmolality] 313 mosm/kg High 278-305 [facility] Comment on above: Performed By: #### M GO, CHM7, IPB, CKB, TRIG, LDO #### [facility] (DEFAULT) [address] [place] [address] Potassium [Moles/Vol] 4.2 mmol/L Normal 3.5-5.0 [facility] Comment on above: Performed By: #### M GO, CHM7, IPB, CKB, TRIG, LDO #### [facility] (DEFAULT) [address] [place] [address] Sodium [Moles/Vol] 141 mmol/L Normal 135-145 [facility] Comment on above: Performed By: #### M GO, CHM7, IPB, CKB, TRIG, LDO #### [facility] (DEFAULT) [address] [place] [address] Urea nitrogen [Mass/Vol] 61 mg/dL High 7-25 [facility] Comment on above: Performed By: #### M GO, CHM7, IPB, CKB, TRIG, LDO #### [facility] (DEFAULT) [address] [place] [address] Urea nitrogen/Creatinine [Mass ratio] 36 mg/mg Normal [facility] Comment on above: Performed By: #### M GO, CHM7, IPB, CKB, TRIG, LDO #### [facility] (DEFAULT) [address] [place] [address] GLUCOSE POCon 05-17-2024 Glucose [Mass/Vol] 99 mg/dL 70 - 99 mg/dL [facility] POC [facility] Glucose [Mass/Vol] 106 mg/dL High 70 - 99 mg/dL [facility] Interpretation and review of laboratory results Abnormal [facility] POC Sample Type CAPBL [facility] Glucose [Mass/Vol] 103 mg/dL High 70 - 99 mg/dL [facility] Interpretation and review of laboratory results Abnormal [facility] Glucose [Mass/Vol] 104 mg/dL High 70 - 99 mg/dL [facility] Interpretation and review of laboratory results Abnormal [facility] POC Sample Type CAPBL [facility] MAGNESIUMon 05-17-2024 Magnesium [Mass/Vol] 1.9 mg/dL 1.6 - 2 .6 mg/dL [facility] Magnesium [Mass/Vol] 1.9 mg/dL Normal 1.6-2.6 [facility] Comment on above: Performed By: #### M OMER, RITAM7, IPB, CKB, TRIG, LDO #### [facility] (DEFAULT) [address] [place] [address] No Panel Informationon 05-17 Interpretation and review of laboratory results Normal [facility] PHOSPHATE, INORGANICon 05-17 Phosphate [Mass/Vol] 3.6 mg/dL 2.2 - 4 .6 mg/dL [facility] Phosphorous 3.6 mg/dL Normal 2.2-4.6 [facility] Comment on above: Performed By: #### M GO, CHM7, IPB, CKB, TRIG, LDO #### [facility] (DEFAULT) [address] [place] [address] RF videography Hypopharynx a nd Esophagus Views W liquid and paste contrast PO during swallowingon 05-17-2024 RADIOLOGY RADIOLOGY [facility] Radiology Study observation (narrative) [facility] SPEECH MODIFIED BARIUM SWALL OWon 05-17-2024 [facility] XR FLUORO MODIFIED BARIUM SW [...] have reviewed and approved this report. Normal [facility] CBC,PLATELETSon 05-16-2024 Erythrocyte distribution width (RBC) [Ratio] 17.7 % High 10.8 - 14.9 % [facility] Hematocrit (Bld) [Volume fraction] 26.1 % Low 34.9 - 44.3 % [facility] Hemoglobin (Bld) [Mass/Vol] 7.8 g/dL Low 11.4 - 15.2 g/dL [facility] Interpretation and review of laboratory results Abnormal [facility] MCH (RBC) [Entitic mass] 30.4 pg 25.9 - 33.9 pg [facility] MCHC (RBC) [Mass/Vol] 29.9 g/dL Low 31.4 - 35.9 g/dL [facility] MCV (RBC) [Entitic vol] 101.6 fL High 79.6 - 97.7 fL [facility] Platelet mean volume (Bld) [Entitic vol] 11.9 fL 8.5 - 12.2 fL [facility] Platelets (Bld) [#/Vol] 444 10*3/uL High 150 - 393 K/uL [facility] RBC (Bld) [#/Vol] 2.57 10*6/uL Low [facility] WBC (Bld) [#/Vol] 9.66 10*3/uL 3.99 - 11.19 K/uL [facility] Hematocrit (Bld) [Volume fraction] 26.1 % Low 34.9-44.3 [facility] Comment on above: Performed By: #### M GO, CHM7, IPB, CKB, TRIG, LDO #### [facility] (DEFAULT) [address] [place] [address] Hemoglobin (Bld) [Mass/Vol] 7.8 g/dL Low 11.4-15.2 [facility] Comment on above: Performed By: #### M GO, CHM7, IPB, CKB, TRIG, LDO #### [facility] (DEFAULT) [address] [place] [address] MCV (RBC) [Entitic vol] 101.6 fL High 79.6-97.7 [facility] Comment on above: Performed By: #### M GO, CHM7, IPB, CKB, TRIG, LDO #### [facility] (DEFAULT) [address] [place] [address] 14784 Mean Cell Hgb 30.4 pg Normal 25.9-33.9 [facility] Comment on above: Performed By: #### M GO, CHM7, IPB, CKB, TRIG, LDO #### [facility] (DEFAULT) [address] [place] [address] 38170 Mean Cell Hgb Conc 29.9 g/dL Low 31.4-35.9 [facility] Comment on above: Performed By: #### M GO, CHM7, IPB, CKB, TRIG, LDO #### [facility] (DEFAULT) [address] [place] [address] 70765 Platelet mean volume (Bld) [Entitic vol] 11.9 fL Normal 8.5-12.2 [facility] Comment on above: Performed By: #### M GO, CHM7, IPB, CKB, TRIG, LDO #### [facility] (DEFAULT) [address] [place] [address] 28274 Platelets (Bld) [#/Vol] 444 10*3/uL High 150-393 [facility] Comment on above: Performed By: #### M GO, CHM7, IPB, CKB, TRIG, LDO #### [facility] (DEFAULT) [address] [place] [address] 01007 RBC (Bld) [#/Vol] 2.57 10*6/uL Low 3.91-5.04 [facility] Comment on above: Performed By: #### M GO, CHM7, IPB, CKB, TRIG, LDO #### [facility] (DEFAULT) [address] [place] [address] 43089 RBC Distribution 17.7 % High 10.8-14.9 [facility] Comment on above: Performed By: #### M GO, CHM7, IPB, CKB, TRIG, LDO #### [facility] (DEFAULT) [address] [place] [address] 49126 WBC (Bld) [#/Vol] 9.66 10*3/uL Normal 3.99-11.19 [facility] Comment on above: Performed By: #### M GO, CHM7, IPB, CKB, TRIG, LDO #### [facility] (DEFAULT) [address] [place] [address] CHEM 7 (LYTES,BUN,CREA,GLUC) on 05-16-2024 Anion gap [Moles/Vol] 13 mmol/L 7 - 17 mmol/L [facility] Chloride [Moles/Vol] 105 mmol/L 98 - 10 8 mmol/L [facility] CO2 [Moles/Vol] 28 mmol/L 21 - 31 mmol/L [facility] Creatinine [Mass/Vol] 1.69 mg/dL High 0.50 - 1.20 mg/dL [facility] eGFR, CKD-EPI, Female 30 Low - PINF [facility] Glucose [Mass/Vol] 120 mg/dL High 70 - 99 mg/dL [facility] Interpretation and review of laboratory results Abnormal [facility] Osmolality Calc [Osmolality] 315 High [facility] Potassium [Moles/Vol] 4.3 mmol/L 3.5 - 5.0 mmol/L [facility] Sodium [Moles/Vol] 142 mmol/L 135 - 145 mmol/L [facility] Urea nitrogen [Mass/Vol] 60 mg/dL High 7 - 25 mg/dL [facility] Urea nitrogen/Creatinine [Mass ratio] 36 mg/mg [facility] Anion gap [Moles/Vol] 13 mmol/L Normal 7-[address] [facility] Comment on above: Performed By: #### R ES #### [facility] (DEFAULT) [address] [place] [address] Chloride [Moles/Vol] 105 mmol/L Normal 98-108 [facility] Comment on above: Performed By: #### R ES #### [facility] (DEFAULT) [address] [place] [address] CO2 [Moles/Vol] 28 mmol/L Normal 21-31 [facility] Comment on above: Performed By: #### R ES #### [facility] (DEFAULT) [address] [address] Creatinine [Mass/Vol] 1.69 mg/dL High 0.50-1.20 [facility] Comment on above: Performed By: #### R ES #### [facility] (DEFAULT) [address] [place] [address] 84390 GFR/1.73 sq M.predicted among non-blacks MDRD (S/P/Bld) [Vol rate/Area] 30 mL/min/{1.73_m2} Low >=60 [facility] Comment on above: Result Comment: Repo rted eGFR is based on the CKD-EPI 2020 equation using creatinine, age, and sex. Performed By: #### R ES #### [facility] (DEFAULT) [address] [address] Glucose [Mass/Vol] 120 mg/dL High 70-99 [facility] Comment on above: Performed By: #### R ES #### [facility] (DEFAULT) [address] [address] Osmolality [Osmolality] 315 mosm/kg High 278-305 [facility] Comment on above: Performed By: #### R ES #### [facility] (DEFAULT) [address] [address] Potassium [Moles/Vol] 4.3 mmol/L Normal 3.5-5.0 [facility] Comment on above: Performed By: #### R ES #### [facility] (DEFAULT) [address] [address] Sodium [Moles/Vol] 142 mmol/L Normal 135-145 [facility] Comment on above: Performed By: #### R ES #### [facility] (DEFAULT) [address] [address] Urea nitrogen [Mass/Vol] 60 mg/dL High 7-25 [facility] Comment on above: Performed By: #### R ES #### [facility] (DEFAULT) [address] [place] [address] Urea nitrogen/Creatinine [Mass ratio] 36 mg/mg Normal [facility] Comment on above: Performed By: #### R ES #### [facility] (DEFAULT) [address] [place] [address] GLUCOSE POCon 05-16-2024 Glucose [Mass/Vol] 117 mg/dL High 70 - 99 mg/dL [facility] Interpretation and review of laboratory results Abnormal [facility] POC Sample Type CAPBL [facility] Glucose [Mass/Vol] 101 mg/dL High 70 - 99 mg/dL [facility] Interpretation and review of laboratory results Abnormal [facility] POC Sample Type CAPBL [facility] Glucose [Mass/Vol] 96 mg/dL 70 - 99 mg/dL [facility] POC Sample Type CAPBL [facility] Glucose [Mass/Vol] 100 mg/dL High 70 - 99 mg/dL [facility] Interpretation and review of laboratory results Abnormal [facility] POC Sample Type CAPBL [facility] MAGNESIUMon 05-16-2024 Magnesium [Mass/Vol] 1.8 mg/dL 1.6 - 2 .6 mg/dL [facility] Magnesium [Mass/Vol] 1.8 mg/dL Normal 1.6-2.6 [facility] Comment on above: Performed By: #### R ES #### [facility] (DEFAULT) [address] [place] [address] No Panel Informationon 05-16 Interpretation and review of laboratory results Normal [facility] PHOSPHATE, INORGANICon 05-16 Phosphate [Mass/Vol] 3.3 mg/dL 2.2 - 4 .6 mg/dL [facility] Phosphorous 3.3 mg/dL Normal 2.2-4.6 [facility] Comment on above: Performed By: #### R ES #### [facility] (DEFAULT) [address] [place] [address] CBC,PLATELETSon 05-15-2024 Erythrocyte distribution width (RBC) [Ratio] 17.8 % High 10.8 - 14.9 % [facility] Hematocrit (Bld) [Volume fraction] 25.7 % Low 34.9 - 44.3 % [facility] Hemoglobin (Bld) [Mass/Vol] 7.6 g/dL Low 11.4 - 15.2 g/dL [facility] Interpretation and review of laboratory results Abnormal [facility] MCH (RBC) [Entitic mass] 30.6 pg 25.9 - 33.9 pg [facility] MCHC (RBC) [Mass/Vol] 29.6 g/dL Low 31.4 - 35.9 g/dL [facility] MCV (RBC) [Entitic vol] 103.6 fL High 79.6 - 97.7 fL [facility] Platelet mean volume (Bld) [Entitic vol] 12 fL 8.5 - 12.2 fL [facility] Platelets (Bld) [#/Vol] 450 10*3/uL High 150 - 393 K/uL [facility] RBC (Bld) [#/Vol] 2.48 10*6/uL Low [facility] WBC (Bld) [#/Vol] 12.44 10*3/uL High 3.99 - 11.19 K/uL [facility] Hematocrit (Bld) [Volume fraction] 25.7 % Low 34.9-44.3 [facility] Comment on above: Performed By: #### G ASVL #### [facility] (DEFAULT) [address] [place] [address] 89269 Hemoglobin (Bld) [Mass/Vol] 7.6 g/dL Low 11.4-15.2 [facility] Comment on above: Performed By: #### G ASVL #### [facility] (DEFAULT) [address] [place] [address] 98525 MCV (RBC) [Entitic vol] 103.6 fL High 79.6-97.7 [facility] Comment on above: Performed By: #### G ASVL #### [facility] (DEFAULT) [address] [place] [address] 10278 Mean Cell Hgb 30.6 pg Normal 25.9-33.9 [facility] Comment on above: Performed By: #### G ASVL #### [facility] (DEFAULT) [address] [place] [address] 31720 Mean Cell Hgb Conc 29.6 g/dL Low 31.4-35.9 [facility] Comment on above: Performed By: #### G ASVL #### [facility] (DEFAULT) [address] [place] [address] 53178 Platelet mean volume (Bld) [Entitic vol] 12.0 fL Normal 8.5-12.2 [facility] Comment on above: Performed By: #### G ASVL #### [facility] (DEFAULT) [address] [place] [address] 01467 Platelets (Bld) [#/Vol] 450 10*3/uL High 150-393 [facility] Comment on above: Performed By: #### G ASVL #### [facility] (DEFAULT) [address] [place] [address] 74648 RBC (Bld) [#/Vol] 2.48 10*6/uL Low 3.91-5.04 [facility] Comment on above: Performed By: #### G ASVL #### [facility] (DEFAULT) [address] [place] [address] 56102 RBC Distribution 17.8 % High 10.8-14.9 [facility] Comment on above: Performed By: #### G ASVL #### [facility] (DEFAULT) [address] [place] [address] 12552 WBC (Bld) [#/Vol] 12.44 10*3/uL High 3.99-11.19 [facility] Comment on above: Performed By: #### G ASVL #### [facility] (DEFAULT) [address] [place] [address] 46834 CHEM 7 (LYTES,BUN,CREA,GLUC) on 05-15-2024 Anion gap [Moles/Vol] 12 mmol/L 7 - 17 mmol/L [facility] Chloride [Moles/Vol] 104 mmol/L 98 - 10 8 mmol/L [facility] CO2 [Moles/Vol] 28 mmol/L 21 - 31 mmol/L [facility] Creatinine [Mass/Vol] 1.75 mg/dL High 0.50 - 1.20 mg/dL [facility] eGFR, CKD-EPI, Female 29 Low - PINF [facility] Glucose [Mass/Vol] 108 mg/dL High 70 - 99 mg/dL [facility] Interpretation and review of laboratory results Abnormal [facility] Osmolality Calc [Osmolality] 312 High [facility] Potassium [Moles/Vol] 4.2 mmol/L 3.5 - 5.0 mmol/L [facility] Sodium [Moles/Vol] 140 mmol/L 135 - 145 mmol/L [facility] Urea nitrogen [Mass/Vol] 63 mg/dL High 7 - 25 mg/dL [facility] Urea nitrogen/Creatinine [Mass ratio] 36 mg/mg [facility] Anion gap [Moles/Vol] 12 mmol/L Normal 7-[address] [facility] Comment on above: Performed By: #### M GO, CHM7, IPB, CKB, TRIG, LDO #### [facility] (DEFAULT) [address] [place] [address] Chloride [Moles/Vol] 104 mmol/L Normal 98-108 [facility] Comment on above: Performed By: #### M GO, CHM7, IPB, CKB, TRIG, LDO #### [facility] (DEFAULT) [address] [place] [address] CO2 [Moles/Vol] 28 mmol/L Normal 21-31 [facility] Comment on above: Performed By: #### M GO, CHM7, IPB, CKB, TRIG, LDO #### [facility] (DEFAULT) [address] [place] [address] Creatinine [Mass/Vol] 1.75 mg/dL High 0.50-1.20 [facility] Comment on above: Performed By: #### M GO, CHM7, IPB, CKB, TRIG, LDO #### [facility] (DEFAULT) [address] [place] [address]14 GFR/1.73 sq M.predicted among non-blacks MDRD (S/P/Bld) [Vol rate/Area] 29 mL/min/{1.73_m2} Low >=60 [facility] Comment on above: Result Comment: Repo rted eGFR is based on the CKD-EPI 2020 equation using creatinine, age, and sex. Performed By: #### M GO, CHM7, IPB, CKB, TRIG, LDO #### [facility] (DEFAULT) [address] [place] [address] Glucose [Mass/Vol] 108 mg/dL High 70-99 [facility] Comment on above: Performed By: #### M GO, CHM7, IPB, CKB, TRIG, LDO #### [facility] (DEFAULT) [address] [place] [address] Osmolality [Osmolality] 312 mosm/kg High 278-305 [facility] Comment on above: Performed By: #### M GO, CHM7, IPB, CKB, TRIG, LDO #### [facility] (DEFAULT) [address] [place] [address] Potassium [Moles/Vol] 4.2 mmol/L Normal 3.5-5.0 [facility] Comment on above: Performed By: #### M GO, CHM7, IPB, CKB, TRIG, LDO #### [facility] (DEFAULT) [address] [place] [address] 51271 Sodium [Moles/Vol] 140 mmol/L Normal 135-145 [facility] Comment on above: Performed By: #### M GO, CHM7, IPB, CKB, TRIG, LDO #### [facility] (DEFAULT) [address] [place] [address] Urea nitrogen [Mass/Vol] 63 mg/dL High 7-25 [facility] Comment on above: Performed By: #### M GO, CHM7, IPB, CKB, TRIG, LDO #### [facility] (DEFAULT) [address] [place] [address] Urea nitrogen/Creatinine [Mass ratio] 36 mg/mg Normal [facility] Comment on above: Performed By: #### M GO, CHM7, IPB, CKB, TRIG, LDO #### [facility] (DEFAULT) [address] [place] [address] 23945 FLUAV and FLUBV Ag IA.rapid Nom (Unsp spec)Ordered By: Kathleen Blake on 05-15-2024 FLUAV Ag IA.rapid Ql (Nph) Not detected Not Detected [facility] FLUBV Ag IA.rapid Ql (Nph) Not detected Not Detected [facility] Interpretation and review of laboratory results Normal [facility] GLUCOSE POCon 05-15-2024 Glucose [Mass/Vol] 97 mg/dL 70 - 99 mg/dL [facility] POC Sample Type CAPBL [facility] Glucose [Mass/Vol] 105 mg/dL High 70 - 99 mg/dL [facility] Interpretation and review of laboratory results Abnormal [facility] POC Sample Type CAPBL [facility] Glucose [Mass/Vol] 117 mg/dL High 70 - 99 mg/dL [facility] Interpretation and review of laboratory results Abnormal [facility] POC Sample Type CAPBL [facility] INFLUENZA A/B RAPID MOLECULA Josr 05-15-2024 Influenza A, Molecular Not detected Normal Not Detected [facility] Comment on above: Order Comment: This test utilizes isothermal nucleic amplification technology for the differential qualitative detection of influenza A and influenza B viral nucleic acids. Performed By: #### M GO, CHM7, IPB, CKB, TRIG, LDO #### [facility] (DEFAULT) [address] [place] [address] Influenza B, Molecular Not detected Normal Not Detected [facility] Comment on above: Order Comment: This test utilizes isothermal nucleic amplification technology for the differential qualitative detection of influenza A and influenza B viral nucleic acids. Performed By: #### M GO, CHM7, IPB, CKB, TRIG, LDO #### [facility] (DEFAULT) [address] [place] [address] MAGNESIUMon 05-15-2024 Magnesium [Mass/Vol] 2 mg/dL 1.6 - 2 .6 mg/dL [facility] Magnesium [Mass/Vol] 2.0 mg/dL Normal 1.6-2.6 [facility] Comment on above: Performed By: #### M GO, CHM7, IPB, CKB, TRIG, LDO #### [facility] (DEFAULT) [address] [place] [address] No Panel Informationon 05-15 Interpretation and review of laboratory results Normal [facility] PHOSPHATE, INORGANICon 05-15 Phosphate [Mass/Vol] 3.9 mg/dL 2.2 - 4 .6 mg/dL [facility] Phosphorous 3.9 mg/dL Normal 2.2-4.6 [facility] Comment on above: Performed By: #### M ROXY TELLO, IPB, CKB, TRIG, LDO #### [facility] (DEFAULT) [address] [address] SARS-COV-2 RAPIDon SARS-CoV-2 (COVID-19) RNA JEANA+probe Ql (Unsp spec) Not detected Normal NOT DETECTED, INVALID [facility] Comment on above: Order Comment: Use [...] eye protection, gown, and gloves. Result Comment: [facility] Negative results do not preclude [...] ROXY TELLO, MARGARETHB, CKB, TRIG, LDO #### [facility] (DEFAULT) [address] [place] [address] SARS-CoV-2 (COVID-19) RNA NA A+probe Ql (Unsp spec)on 05-15-2024 Interpretation and review of laboratory results Normal [facility] SARS-CoV-2 (COVID-19) RdRp gene JEANA+probe Ql (Resp) Not detected NOT DETECTED, INVALID [facility] Bacteria identified Cx Nom ( Bld)on 05-14-2024 Bacteria identified Cx Nom (Unsp spec) NO GROWTH DAY 5 OF 5 [facility] CBC,PLATELETSon 05-14-2024 Erythrocyte distribution width (RBC) [Ratio] 18.1 % High 10.8 - 14.9 % [facility] Hematocrit (Bld) [Volume fraction] 26.4 % Low 34.9 - 44.3 % [facility] Hemoglobin (Bld) [Mass/Vol] 7.8 g/dL Low 11.4 - 15.2 g/dL [facility] Interpretation and review of laboratory results Abnormal [facility] MCH (RBC) [Entitic mass] 30.4 pg 25.9 - 33.9 pg [facility] MCHC (RBC) [Mass/Vol] 29.5 g/dL Low 31.4 - 35.9 g/dL [facility] MCV (RBC) [Entitic vol] 102.7 fL High 79.6 - 97.7 fL [facility] Platelet mean volume (Bld) [Entitic vol] 11.9 fL 8.5 - 12.2 fL [facility] Platelets (Bld) [#/Vol] 374 10*3/uL 150 - 393 K/uL [facility] RBC (Bld) [#/Vol] 2.57 10*6/uL Low [facility] WBC (Bld) [#/Vol] 13.46 10*3/uL High 3.99 - 11.19 K/uL [facility] Hematocrit (Bld) [Volume fraction] 26.4 % Low 34.9-44.3 [facility] Comment on above: Performed By: #### G ASVL #### [facility] (DEFAULT) [address] [place] [address] Hemoglobin (Bld) [Mass/Vol] 7.8 g/dL Low 11.4-15.2 [facility] Comment on above: Performed By: #### G ASVL #### [facility] (DEFAULT) [address] [address] MCV (RBC) [Entitic vol] 102.7 fL High 79.6-97.7 [facility] Comment on above: Performed By: #### G ASVL #### [facility] (DEFAULT) [address] [address] Mean Cell Hgb 30.4 pg Normal 25.9-33.9 [facility] Comment on above: Performed By: #### G ASVL #### [facility] (DEFAULT) [address] [address] Mean Cell Hgb Conc 29.5 g/dL Low 31.4-35.9 [facility] Comment on above: Performed By: #### G ASVL #### [facility] (DEFAULT) [address] [address] Platelet mean volume (Bld) [Entitic vol] 11.9 fL Normal 8.5-12.2 [facility] Comment on above: Performed By: #### G ASVL #### [facility] (DEFAULT) [address] [address] Platelets (Bld) [#/Vol] 374 10*3/uL Normal 150-393 [facility] Comment on above: Performed By: #### G ASVL #### [facility] (DEFAULT) [address] [address] RBC (Bld) [#/Vol] 2.57 10*6/uL Low 3.91-5.04 [facility] Comment on above: Performed By: #### G ASVL #### [facility] (DEFAULT) [address] [address] RBC Distribution 18.1 % High 10.8-14.9 [facility] Comment on above: Performed By: #### G ASVL #### [facility] (DEFAULT) [address] [place] [address] WBC (Bld) [#/Vol] 13.46 10*3/uL High 3.99-11.19 [facility] Comment on above: Performed By: #### G ASVL #### [facility] (DEFAULT) [address] [place] [address] CHEM 7 (LYTES,BUN,CREA,GLUC) on 05-14-2024 Anion gap [Moles/Vol] 14 mmol/L 7 - 17 mmol/L [facility] Chloride [Moles/Vol] 103 mmol/L 98 - 10 8 mmol/L [facility] CO2 [Moles/Vol] 26 mmol/L 21 - 31 mmol/L [facility] Creatinine [Mass/Vol] 1.7 mg/dL High 0.50 - 1.20 mg/dL [facility] eGFR, CKD-EPI, Female 30 Low - PINF [facility] Glucose [Mass/Vol] 100 mg/dL High 70 - 99 mg/dL [facility] Interpretation and review of laboratory results Abnormal [facility] Osmolality Calc [Osmolality] 307 High [facility] Potassium [Moles/Vol] 4.6 mmol/L 3.5 - 5.0 mmol/L [facility] Sodium [Moles/Vol] 138 mmol/L 135 - 145 mmol/L [facility] Urea nitrogen [Mass/Vol] 60 mg/dL High 7 - 25 mg/dL [facility] Urea nitrogen/Creatinine [Mass ratio] 35 mg/mg [facility] Anion gap [Moles/Vol] 14 mmol/L Normal 7-[address] [facility] Comment on above: Performed By: #### G ASVL #### [facility] (DEFAULT) [address] [place] [address] Chloride [Moles/Vol] 103 mmol/L Normal 98-108 [facility] Comment on above: Performed By: #### G ASVL #### [facility] (DEFAULT) [address] [place] [address] CO2 [Moles/Vol] 26 mmol/L Normal 21-31 [facility] Comment on above: Performed By: #### G ASVL #### [facility] (DEFAULT) [address] [place] [address] Creatinine [Mass/Vol] 1.70 mg/dL High 0.50-1.20 [facility] Comment on above: Performed By: #### G ASVL #### [facility] (DEFAULT) [address] [place] [address] 82877 GFR/1.73 sq M.predicted among non-blacks MDRD (S/P/Bld) [Vol rate/Area] 30 mL/min/{1.73_m2} Low >=60 [facility] Comment on above: Result Comment: Repo rted eGFR is based on the CKD-EPI 2020 equation using creatinine, age, and sex. Performed By: #### G ASVL #### [facility] (DEFAULT) [address] [place] [address]273 Glucose [Mass/Vol] 100 mg/dL High 70-99 [facility] Comment on above: Performed By: #### G ASVL #### [facility] (DEFAULT) [address] [place] [address] 09362 Osmolality [Osmolality] 307 mosm/kg High 278-305 [facility] Comment on above: Performed By: #### G ASVL #### [facility] (DEFAULT) [address] [place] [address] 83312 Potassium [Moles/Vol] 4.6 mmol/L Normal 3.5-5.0 [facility] Comment on above: Performed By: #### G ASVL #### [facility] (DEFAULT) [address] [place] [address] 26062 Sodium [Moles/Vol] 138 mmol/L Normal 135-145 [facility] Comment on above: Performed By: #### G ASVL #### [facility] (DEFAULT) [address] [place] [address] 89774 Urea nitrogen [Mass/Vol] 60 mg/dL High 7-25 [facility] Comment on above: Performed By: #### G ASVL #### [facility] [address] [place] [address] Urea nitrogen/Creatinine [Mass ratio] 35 mg/mg Normal [facility] Comment on above: Performed By: #### G ASVL #### [facility] (DEFAULT) [address] [place] [address] 06369 ECGon 05-14-2024 [facility] ECGOrdered By: Agustina bonilla on 05-14-2024 [facility] Work Phone: GLUCOSE POCon 05-14-2024 Glucose [Mass/Vol] 112 mg/dL High 70 - 99 mg/dL [facility] Interpretation and review of laboratory results Abnormal [facility] POC Sample Type CAPBL [facility] Glucose [Mass/Vol] 109 mg/dL High 70 - 99 mg/dL [facility] Interpretation and review of laboratory results Abnormal [facility] POC Sample Type CAPBL [facility] Glucose [Mass/Vol] 100 mg/dL High 70 - 99 mg/dL [facility] Interpretation and review of laboratory results Abnormal [facility] POC Sample Type CAPBL [facility] MAGNESIUMon 05-14-2024 Magnesium [Mass/Vol] 2 mg/dL 1.6 - 2 .6 mg/dL [facility] Magnesium [Mass/Vol] 2.0 mg/dL Normal 1.6-2.6 [facility] Comment on above: Performed By: #### F CRAG #### [facility] (DEFAULT) [address] [place] [address] [id number] No Panel Informationon 05-14 Interpretation and review of laboratory results Normal [facility] PHOSPHATE, INORGANICon 05-14 Phosphate [Mass/Vol] 3.8 mg/dL 2.2 - 4 .6 mg/dL [facility] Phosphorous 3.8 mg/dL Normal 2.2-4.6 [facility] Comment on above: Performed By: #### G ASVL #### [facility] (DEFAULT) [address] [place] [address] CBC,PLATELETSon 05-13-2024 Erythrocyte distribution width (RBC) [Ratio] 18.3 % High 10.8 - 14.9 % [facility] Hematocrit (Bld) [Volume fraction] 26.9 % Low 34.9 - 44.3 % [facility] Hemoglobin (Bld) [Mass/Vol] 8 g/dL Low 11.4 - 15.2 g/dL [facility] Interpretation and review of laboratory results Abnormal [facility] MCH (RBC) [Entitic mass] 30.3 pg 25.9 - 33.9 pg [facility] MCHC (RBC) [Mass/Vol] 29.7 g/dL Low 31.4 - 35.9 g/dL [facility] MCV (RBC) [Entitic vol] 101.9 fL High 79.6 - 97.7 fL [facility] Platelet mean volume (Bld) [Entitic vol] 11.9 fL 8.5 - 12.2 fL [facility] Platelets (Bld) [#/Vol] 368 10*3/uL 150 - 393 K/uL [facility] RBC (Bld) [#/Vol] 2.64 10*6/uL Low [facility] WBC (Bld) [#/Vol] 11.5 10*3/uL High 3.99 - 11.19 K/uL [facility] Hematocrit (Bld) [Volume fraction] 26.9 % Low 34.9-44.3 [facility] Comment on above: Performed By: #### G ASVL #### [facility] (DEFAULT) [address] [place] [address] 84224 Hemoglobin (Bld) [Mass/Vol] 8.0 g/dL Low 11.4-15.2 [facility] Comment on above: Performed By: #### G ASVL #### [facility] (DEFAULT) [address] [place] [address] 22784 MCV (RBC) [Entitic vol] 101.9 fL High 79.6-97.7 [facility] Comment on above: Performed By: #### G ASVL #### [facility] (DEFAULT) [address] [place] [address] 95098 Mean Cell Hgb 30.3 pg Normal 25.9-33.9 [facility] Comment on above: Performed By: #### G ASVL #### [facility] (DEFAULT) [address] [place] [address] 28204 Mean Cell Hgb Conc 29.7 g/dL Low 31.4-35.9 [facility] Comment on above: Performed By: #### G ASVL #### [facility] (DEFAULT) [address] [place] [address] 45109 Platelet mean volume (Bld) [Entitic vol] 11.9 fL Normal 8.5-12.2 [facility] Comment on above: Performed By: #### G ASVL #### [facility] (DEFAULT) [address] [place] [address] 85165 Platelets (Bld) [#/Vol] 368 10*3/uL Normal 150-393 [facility] Comment on above: Performed By: #### G ASVL #### [facility] (DEFAULT) [address] [place] [address] 69926 RBC (Bld) [#/Vol] 2.64 10*6/uL Low 3.91-5.04 [facility] Comment on above: Performed By: #### G ASVL #### [facility] (DEFAULT) [address] [place] [address] RBC Distribution 18.3 % High 10.8-14.9 [facility] Comment on above: Performed By: #### G ASVL #### [facility] (DEFAULT) [address] [place] [address] WBC (Bld) [#/Vol] 11.50 10*3/uL High 3.99-11.19 [facility] Comment on above: Performed By: #### G ASVL #### [facility] (DEFAULT) [address] [place] [address] 97761 CHEM 7 (LYTES,BUN,CREA,GLUC) on 05-13-2024 Anion gap [Moles/Vol] 12 mmol/L 7 - 17 mmol/L [facility] Chloride [Moles/Vol] 104 mmol/L 98 - 10 8 mmol/L [facility] CO2 [Moles/Vol] 31 mmol/L 21 - 31 mmol/L [facility] Creatinine [Mass/Vol] 1.89 mg/dL High 0.50 - 1.20 mg/dL [facility] eGFR, CKD-EPI, Female 26 Low - PINF [facility] Glucose [Mass/Vol] 102 mg/dL High 70 - 99 mg/dL [facility] Interpretation and review of laboratory results Abnormal [facility] Osmolality Calc [Osmolality] 317 High [facility] Potassium [Moles/Vol] 4.4 mmol/L 3.5 - 5.0 mmol/L [facility] Sodium [Moles/Vol] 143 mmol/L 135 - 145 mmol/L [facility] Urea nitrogen [Mass/Vol] 62 mg/dL High 7 - 25 mg/dL [facility] Urea nitrogen/Creatinine [Mass ratio] 33 mg/mg [facility] Anion gap [Moles/Vol] 12 mmol/L Normal 7-17 [facility] Comment on above: Performed By: #### M GO, CHM7, IPB, CKB, TRIG, LDO #### [facility] (DEFAULT) [address] [place] [address] 86756 Chloride [Moles/Vol] 104 mmol/L Normal 98-108 [facility] Comment on above: Performed By: #### M GO, CHM7, IPB, CKB, TRIG, LDO #### [facility] (DEFAULT) [address] [place] [address] 98461 CO2 [Moles/Vol] 31 mmol/L Normal 21-31 [facility] Comment on above: Performed By: #### M GO, CHM7, IPB, CKB, TRIG, LDO #### [facility] (DEFAULT) [address] [place] [address] 05380 Creatinine [Mass/Vol] 1.89 mg/dL High 0.50-1.20 [facility] Comment on above: Performed By: #### M GO, CHM7, IPB, CKB, TRIG, LDO #### [facility] (DEFAULT) [address] [place] [address] 21310 GFR/1.73 sq M.predicted among non-blacks MDRD (S/P/Bld) [Vol rate/Area] 26 mL/min/{1.73_m2} Low >=60 [facility] Comment on above: Result Comment: Repo rted eGFR is based on the CKD-EPI 2020 equation using creatinine, age, and sex. Performed By: #### M GO, CHM7, IPB, CKB, TRIG, LDO #### [facility] (DEFAULT) [address] [place] [address] 49684 Glucose [Mass/Vol] 102 mg/dL High 70-99 [facility] Comment on above: Performed By: #### M GO, CHM7, IPB, CKB, TRIG, LDO #### [facility] (DEFAULT) [address] [place] [address] 97944 Osmolality [Osmolality] 317 mosm/kg High 278-305 [facility] Comment on above: Performed By: #### M GO, CHM7, IPB, CKB, TRIG, LDO #### [facility] (DEFAULT) [address] [place] [address] 76429 Potassium [Moles/Vol] 4.4 mmol/L Normal 3.5-5.0 [facility] Comment on above: Performed By: #### M GO, CHM7, IPB, CKB, TRIG, LDO #### [facility] (DEFAULT) [address] [place] [address] 69036 Sodium [Moles/Vol] 143 mmol/L Normal 135-145 [facility] Comment on above: Performed By: #### M GO, CHM7, IPB, CKB, TRIG, LDO #### [facility] (DEFAULT) [address] [place] [address] 68031 Urea nitrogen [Mass/Vol] 62 mg/dL High 7-25 [facility] Comment on above: Performed By: #### M GO, CHM7, IPB, CKB, TRIG, LDO #### [facility] (DEFAULT) [address] [place] [address] 29709 Urea nitrogen/Creatinine [Mass ratio] 33 mg/mg Normal [facility] Comment on above: Performed By: #### M GO, CHM7, IPB, CKB, TRIG, LDO #### [facility] (DEFAULT) [address] [place] [address] 72395 ENCEPHALOPATHY, AUTOIMMUNE E VALUATION, CSFon 05-13-2024 AMPAR2 IgG Cell binding assay immunofluorescent assay Ql (CSF) Negative Negative [facility] Amphiphysin Ab IF Ql (CSF) Negative Negative [facility] Annotation comment [Interpretation] Narrative None. [facility] Contactin-associated protein 2 IgG Cell binding assay immunofluorescent assay Ql (CSF) Negative Negative [facility] CV2 Ab IF Ql (CSF) Negative Negative [facility] Dipeptidyl aminopeptidase-like protein 6 IgG Cell binding assay immunofluorescent assay Ql (CSF) Negative Negative [facility] GABABR IgG Cell binding assay immunofluorescent assay Ql (CSF) Negative Negative [facility] Glial fibrillary acidic protein alpha subunit IgG IF Ql (CSF) Negative Negative [facility] Glial nuclear type 1 Ab IF Ql (CSF) Negative Negative [facility] Glutamate decarboxylase 65 IgG+IgM IA (CSF) [Moles/Vol] 0.00 nmol/L NINF - 0.02 nmol/L [facility] IgLON5 CBA, CSF Negative Negative [facility] Art Objects Salesperson review Janes (Unsp spec) [Interp] SEE COMMENTS [facility] Leucine-rich glioma-inactivated protein 1 IgG Cell binding assay immunofluorescent assay Ql (CSF) Negative Negative [facility] Metabotropic glutamate receptor 1 IgG IF Ql (CSF) Negative Negative [facility] Neurochondrin IFA, CSF Negative Negative [facility] Neuronal nuclear type 1 Ab IF Ql (CSF) Negative Negative [facility] Neuronal nuclear type 2 Ab IF Ql (CSF) Negative Negative [facility] Neuronal nuclear type 3 Ab IF Ql (CSF) Negative Negative [facility] NIF IFA, CSF Negative Negative [facility] NMDAR subunit 1 IgG Cell binding assay immunofluorescent assay Ql (CSF) Negative Negative [facility] FAMILY PSYCHOLOGIST-1 Ab IF Ql (CSF) Negative Negative [facility] FAMILY PSYCHOLOGIST-2 Ab IF Ql (CSF) Negative Negative [facility] FAMILY PSYCHOLOGIST-Tr Ab IF Ql (CSF) Negative Negative [facility] PDE10A AB IFA, CSF Negative Negative [facility]-7 IFA, CSF Negative Negative [facility] Tripartite Motif-Containing Protein 46 IgG IFA, CSF Negative Negative [facility] FLEXIBLE ENDOSCOPIC EVALUATI ON OF SWALLOWINGon 05-13-2024 RADIOLOGY [facility] GLUCOSE POCon 05-13-2024 Glucose [Mass/Vol] 118 mg/dL High 70 - 99 mg/dL [facility] Interpretation and review of laboratory results Abnormal [facility] POC Sample Type CAPBL [facility] Glucose [Mass/Vol] 121 mg/dL High 70 - 99 mg/dL [facility] Interpretation and review of laboratory results Abnormal [facility] POC Sample Type CAPBL [facility] Glucose [Mass/Vol] 107 mg/dL High 70 - 99 mg/dL [facility] Glucose [Mass/Vol] 116 mg/dL High 70 - 99 mg/dL [facility] MAGNESIUMon 05-13-2024 Magnesium [Mass/Vol] 2.2 mg/dL 1.6 - 2 .6 mg/dL [facility] Magnesium [Mass/Vol] 2.2 mg/dL Normal 1.6-2.6 [facility] Comment on above: Performed By: #### M OMER, CHEMO7, IPB, CKB, TRIG, LDO #### [facility] (DEFAULT) [address] [place], [place] [id number] No Panel Informationon 05-13 Interpretation and review of laboratory results Abnormal [facility] POC Sample Type CAPBL [facility] Interpretation and review of laboratory results Normal [facility] PHOSPHATE, INORGANICon 05-13 Phosphate [Mass/Vol] 3.4 mg/dL 2.2 - 4 .6 mg/dL [facility] Phosphorous 3.4 mg/dL Normal 2.2-4.6 [facility] Comment on above: Performed By: #### M OMER, CHM7, IPB, CKB, TRIG, LDO #### [facility] (DEFAULT) [address] [place] [address] 44431 CALCIUMon 05-12-2024 Calcium [Mass/Vol] 7.8 mg/dL Low 8.6 - 10. 5 mg/dL [facility] Interpretation and review of laboratory results Abnormal [facility] Calcium [Mass/Vol] 7.8 mg/dL Low 8.6-10.5 [facility] Comment on above: Performed By: #### M ROXY TELLO, IPB, CKB, TRIG, LDO #### [facility] (DEFAULT) [address] [place] [address] CBC,PLATELETSon 05-12-2024 Erythrocyte distribution width (RBC) [Ratio] 18.5 % High 10.8 - 14.9 % [facility] Hematocrit (Bld) [Volume fraction] 26.9 % Low 34.9 - 44.3 % [facility] Hemoglobin (Bld) [Mass/Vol] 7.9 g/dL Low 11.4 - 15.2 g/dL [facility] Interpretation and review of laboratory results Abnormal [facility] MCH (RBC) [Entitic mass] 30.2 pg 25.9 - 33.9 pg [facility] MCHC (RBC) [Mass/Vol] 29.4 g/dL Low 31.4 - 35.9 g/dL [facility] MCV (RBC) [Entitic vol] 102.7 fL High 79.6 - 97.7 fL [facility] Platelet mean volume (Bld) [Entitic vol] 12 fL 8.5 - 12.2 fL [facility] Platelets (Bld) [#/Vol] 299 10*3/uL 150 - 393 K/uL [facility] RBC (Bld) [#/Vol] 2.62 10*6/uL Low [facility] WBC (Bld) [#/Vol] 11.05 10*3/uL 3.99 - 11.19 K/uL [facility] Hematocrit (Bld) [Volume fraction] 26.9 % Low 34.9-44.3 [facility] Comment on above: Performed By: #### M OMER, CHEMO7, IPB, CKB, TRIG, LDO #### [facility] (DEFAULT) [address] [place] [address] 13161 Hemoglobin (Bld) [Mass/Vol] 7.9 g/dL Low 11.4-15.2 [facility] Comment on above: Performed By: #### M GO, CHM7, IPB, CKB, TRIG, LDO #### [facility] (DEFAULT) [address] [place] [address] 99544 MCV (RBC) [Entitic vol] 102.7 fL High 79.6-97.7 [facility] Comment on above: Performed By: #### M GO, CHM7, IPB, CKB, TRIG, LDO #### [facility] (DEFAULT) [address] [place] [address] 08798 Mean Cell Hgb 30.2 pg Normal 25.9-33.9 [facility] Comment on above: Performed By: #### M GO, CHM7, IPB, CKB, TRIG, LDO #### [facility] (DEFAULT) [address] [place] [address] 19741 Mean Cell Hgb Conc 29.4 g/dL Low 31.4-35.9 [facility] Comment on above: Performed By: #### M GO, CHM7, IPB, CKB, TRIG, LDO #### [facility] (DEFAULT) [address] [place] [address] 53527 Platelet mean volume (Bld) [Entitic vol] 12.0 fL Normal 8.5-12.2 [facility] Comment on above: Performed By: #### M GO, CHM7, IPB, CKB, TRIG, LDO #### [facility] (DEFAULT) [address] [place] [address] 31006 Platelets (Bld) [#/Vol] 299 10*3/uL Normal 150-393 [facility] Comment on above: Performed By: #### M GO, CHM7, IPB, CKB, TRIG, LDO #### [facility] (DEFAULT) [address] [place] [address] 02435 RBC (Bld) [#/Vol] 2.62 10*6/uL Low 3.91-5.04 [facility] Comment on above: Performed By: #### M GO, CHM7, IPB, CKB, TRIG, LDO #### [facility] (DEFAULT) [address] [place] [address] RBC Distribution 18.5 % High 10.8-14.9 [facility] Comment on above: Performed By: #### M GO, CHM7, IPB, CKB, TRIG, LDO #### [facility] (DEFAULT) [address] [place] [address] 46425 WBC (Bld) [#/Vol] 11.05 10*3/uL Normal 3.99-11.19 [facility] Comment on above: Performed By: #### M GO, CHM7, IPB, CKB, TRIG, LDO #### [facility] (DEFAULT) [address] [place] [address] 39423 CHEM 7 (LYTES,BUN,CREA,GLUC) Ordered By: Michael Jiménez on 05-12-2024 Anion gap [Moles/Vol] 13 mmol/L 7 - 17 mmol/L [facility] Chloride [Moles/Vol] 103 mmol/L 98 - 10 8 mmol/L [facility] CO2 [Moles/Vol] 31 mmol/L 21 - 31 mmol/L [facility] Creatinine [Mass/Vol] 2.19 mg/dL High 0.50 - 1.20 mg/dL [facility] eGFR, CKD-EPI, Female 22 Low - PINF [facility] Glucose [Mass/Vol] 96 mg/dL 70 - 99 mg/dL [facility] Interpretation and review of laboratory results Abnormal [facility] Osmolality Calc [Osmolality] 315 High [facility] Potassium [Moles/Vol] 4.6 mmol/L 3.5 - 5.0 mmol/L [facility] Sodium [Moles/Vol] 142 mmol/L 135 - 145 mmol/L [facility] Urea nitrogen [Mass/Vol] 63 mg/dL High 7 - 25 mg/dL [facility] Urea nitrogen/Creatinine [Mass ratio] 29 mg/mg [facility] CHEM 7 (LYTES,BUN,CREA,GLUC) on 05-12-2024 Anion gap [Moles/Vol] 13 mmol/L Normal 7-17 [facility] Comment on above: Performed By: #### M GO, CHM7, IPB, CKB, TRIG, LDO #### [facility] (DEFAULT) [address] [place] [address] 46502 Chloride [Moles/Vol] 103 mmol/L Normal 98-108 [facility] Comment on above: Performed By: #### M GO, CHM7, IPB, CKB, TRIG, LDO #### [facility] (DEFAULT) [address] [place] [address] 23489 CO2 [Moles/Vol] 31 mmol/L Normal 21-31 [facility] Comment on above: Performed By: #### M GO, CHM7, IPB, CKB, TRIG, LDO #### [facility] (DEFAULT) [address] [place] [address] 51796 Creatinine [Mass/Vol] 2.19 mg/dL High 0.50-1.20 [facility] Comment on above: Performed By: #### M GO, CHM7, IPB, CKB, TRIG, LDO #### [facility] (DEFAULT) [address] [place] [address] 17208 GFR/1.73 sq M.predicted among non-blacks MDRD (S/P/Bld) [Vol rate/Area] 22 mL/min/{1.73_m2} Low >=60 [facility] Comment on above: Result Comment: Repo rted eGFR is based on the CKD-EPI 2020 equation using creatinine, age, and sex. Performed By: #### M GO, CHM7, IPB, CKB, TRIG, LDO #### [facility] (DEFAULT) [address] [place] [address] 81136 Glucose [Mass/Vol] 96 mg/dL Normal 70-99 [facility] Comment on above: Performed By: #### M GO, CHM7, IPB, CKB, TRIG, LDO #### [facility] (DEFAULT) [address] [place] [address] 89149 Osmolality [Osmolality] 315 mosm/kg High 278-305 [facility] Comment on above: Performed By: #### M GO, CHM7, IPB, CKB, TRIG, LDO #### [facility] (DEFAULT) [address] [place] [address] 71075 Potassium [Moles/Vol] 4.6 mmol/L Normal 3.5-5.0 [facility] Comment on above: Performed By: #### M GO, CHM7, IPB, CKB, TRIG, LDO #### [facility] (DEFAULT) [address] [place] [address] 01319 Sodium [Moles/Vol] 142 mmol/L Normal 135-145 [facility] Comment on above: Performed By: #### M GO, CHM7, IPB, CKB, TRIG, LDO #### [facility] (DEFAULT) [address] [place] [address] 05326 Urea nitrogen [Mass/Vol] 63 mg/dL High 7-25 [facility] Comment on above: Performed By: #### M GO, CHM7, IPB, CKB, TRIG, LDO #### [facility] (DEFAULT) [address] [place] [address] 58898 Urea nitrogen/Creatinine [Mass ratio] 29 mg/mg Normal [facility] Comment on above: Performed By: #### M GO, CHM7, IPB, CKB, TRIG, LDO #### [facility] (DEFAULT) [address] [place] [address] 26913 Cardiac echo study Procedure Ordered By: Bandar Burt on 05-12-2024 Ao arch [facility] 1.25 cm/[facility] Phone: [phone] Ao ASC index 1.38 cm/m2 [facility] Work Phone: [phone] Ao peak radha 1.47 m/s [facility] Work Phone: [phone] Ao SOV index 1.46 cm/m2 [facility] Work Phone: [phone] Ao STJ index 1.43 cm/m2 [facility] Work Phone: [phone] Ao VTI 35.06 cm [facility] Work Phone: [phone] Aortic arch 2.68 cm [facility] Work Phone: [phone] Ascending aorta 2.96 [facility] Phone: [phone] AV LVOT peak gradient 3 mmHg [facility] Work Phone: [phone] AV [facility] gradient [facility]: [phone] AV peak gradient 9 mmHG [facility] Work Phone: [phone] AV valve area 2.28 cm2 [facility] Work Phone: [phone] [facility] Velocity [facility] 0.58 [facility]: [phone] MAHESH (continuity Vmax) 2.08 cm2 [facility] Work Phone: [phone] MAHESH (continuity VTI) 2.28 cm2 [facility] Work Phone: [phone] MAHESH index (continuity Vmax) 0.97 m/s [facility] Work Phone: [phone] MAHESH index (continuity VTI) 1.07 cm2/m2 [facility] Work Phone: [phone] Avg e' pk radha 0.07 m/s [facility] Work Phone: Avg E/e' ratio 9.96 [facility] Work Phone: Body surface area Derived from formula 2.14 m2 [facility] Work Phone: BP EF 55 % [facility] Work Phone: DI (Vmax) 0.58 [facility] Work Phone: DI (VTI) 0.64 m/2 [facility] Work Phone: E wave decelartion time 212.07 msec [facility] Work Phone: e' lateral pk radha 0.0824 m/s [facility] Work Phone: e' lateral pk radha 0.08 m/s [facility] Work Phone: e' septal pk radha 0.0628 m/s [facility] Work Phone: e' septal pk radha 0.06 m/s [facility] Work Phone: E/A ratio 1.15 [facility] Work Phone: E/e' lateral ratio 8.62 [facility] Work Phone: E/e' septal ratio 11.31 [facility] Work Phone: EF SP 2CH 60 [facility] Work Phone: EF SP 4CH 51 [facility] Work Phone: EST RAP 5 mmHg [facility] Work Phone: FS 34 % [facility] Work Phone: IVC ostium 1.87 cm [facility] Work Phone: IVS 0.91 cm [facility] Work Phone: LA area 4CH 28.64 cm2 [facility] Work Phone: LA ESV BP (MOD) 91 mL [facility] Work Phone: [phone] LA ESV BP (MOD) index 43 mL/m2 [facility] Work [facility]: LA ESV SP 2CH (MOD) 84 mL [facility] Work Phone: LA ESV SP 4CH (MOD) 96 mL [facility] Work Phone: [phone] LV EDV BP 125 [facility] Work Phone: LV EDV SP 2CH 112 [facility] Work Phone: LV EDV SP 4CH 137 [facility] Work Phone: LV ESV BP 56 mL [facility] Work Phone: LV ESV SP 2CH 45 mL [facility] Work Phone: [phone] LV ESV SP 4CH 67 mL [facility] Work Phone: [phone] LV mass 144.92 g [facility] Work Phone: LV Mass Index 67.7 g/m2 [facility] Work Phone: LV RWT 0.41 [facility] Work Phone: LV stroke volume BP (ml) 69 mL [facility] Work Phone: LV stroke volume index BP 32.24 mL/m2 [facility] Work Phone: LVIDD 4.64 cm [facility] Work Phone: LVIDS 3.05 cm [facility] Work Phone: LVOT area 3.59 cm2 [facility] Work Phone: LVOT diameter 2.14 cm [facility] Work [facility]: LVOT peak radha 0.85 m/s [facility] Work Phone: LVOT peak VTI 22.27 [facility] [facility] Work Phone: LVOT stroke volume 80 cm3 [facility]: LVOT stroke volume index 37.41 ml/m2 [facility]: MV pk A radha 0.62 m/s [facility] Work Phone: MV pk E radha 0.71 m/s [facility] Work Phone: [facility] AV VTI RATIO PRE STRESS 0.64 [facility] Work Phone: [facility] ECHO LV BIPLANE SYSTOLIC VOLUME INDEX 26.17 mL/m2 [facility]: [facility] ECHO LV BP DIASTOLIC VOLUME INDEX 58.41 mL/m2 [facility]: [facility] PV PK RADHA 1.17 m/s [facility]: PW 0.94 cm [facility] Work Phone: RA area 4CH (MOD) 16.49 [facility]2 [facility]: RA vol index 4CH (MOD) 18.69 mL/m2 O [facility] Work Phone: Right atrium volume 4 chamber method of disks 40 mL [facility] Work Phone: RV Area diastolic 24.16 cm2 [facility]: [facility] Area systolic 12.8 [facility]2 [facility] RV Fractional area change 47 % [facility] Work Phone: RV S' 20.24 cm/s [facility] Work Phone: RVOT peak gradient 2 mmHg [facility] Work Phone: RVOT peak radha 0.75 m/s [facility] Work Phone: RVOT peak VTI 15.5 cm [facility] Work Phone: Sinus 3.13 cm [facility] Work Phone: STJ 3.05 cm [facility] Work Phone: Stroke Volume 80 cm/mL [facility] Work Phone: [facility]roke volume index [facility] TAPSE 3.12 cm [facility] Work Phone: [facility] Work Phone: Cardiac echo study Procedure on 05-12-2024 [facility] ECHOCARDIOGRAMon 05-12-2024 Echocardiography Left ventricular siz [...] original result were not included. Facility [facility] Patient Information Patient Name Mari Lopez [...] Role Read Date Bandar Burt DO Echo [place] 05/12/2024 Wall Scoring Score Index: 1.24 The [...] Valve Steno (more content not included)... Normal [facility] GLUCOSE POCon 05-12-2024 Glucose [Mass/Vol] 101 mg/dL High 70 - 99 mg/dL [facility] Interpretation and review of laboratory results Abnormal [facility] POC Sample Type [facility] Glucose [Mass/Vol] 90 mg/dL 70 - 99 mg/dL [facility] Glucose [Mass/Vol] 97 mg/dL 70 - 99 mg/dL [facility] POC Sample Type [facility] Glucose [Mass/Vol] 96 mg/dL 70 - 99 mg/dL [facility] POC [facility] W CALCULATED LDL on 05-12-2024 Cholesterol [Mass/Vol] 121 mg/dL NINF - 200 mg/dL [facility] Cholesterol in HDL [Mass/Vol] 36 mg/dL Low 40 - PINF mg/dL [facility] Cholesterol in LDL [Mass/Vol] 64 mg/dL 0 - 99 mg/dL [facility] Cholesterol non HDL [Mass/Vol] 85 mg/dL NINF - 130 mg/dL [facility] Cholesterol.total/Chol esterol in HDL [Mass ratio] 3.4 {ratio} NINF - 4.5 [facility] Interpretation and review of laboratory results Abnormal [facility] Triglyceride [Mass/Vol] 103 mg/dL NINF - 150 mg/dL [facility] Calculated LDL Cholesterol 64 mg/dL Normal 0-99 [facility] Comment on above: Result Comment: [<10 0 mg/dL: Optimal] [100-129 mg/dL: Near Optimal] [130-159 mg/dL: Borderline High] [160-189 mg/dL: High] [>189 mg/dL: Very High] Performed By: #### M GO, CHM7, IPB, CKB, TRIG, LDO #### [facility] (DEFAULT) [address] [place] [address] 13826 Cholesterol [Mass/Vol] 121 mg/dL Normal <200 [facility] Comment on above: Result Comment: [<20 0 mg/dL: Desirable] [200-239 mg/dL: Borderline High] [>239 mg/dL: High] Performed By: #### M GO, CHM7, IPB, CKB, TRIG, LDO #### [facility] (DEFAULT) [address] [place] [address] 16798 Cholesterol in HDL [Mass/Vol] 36 mg/dL Low >=40 [facility] Comment on above: Result Comment: [<40 mg/dL: Low (High Risk)] [>59 mg/dL: High (Low Risk)] Performed By: #### M GO, CHM7, IPB, CKB, TRIG, LDO #### [facility] (DEFAULT) [address] [place] [address] 00991 Non HDL Cholesterol 85 mg/dL Normal <130 [facility] Comment on above: Performed By: #### M GO, CHM7, IPB, CKB, TRIG, LDO #### [facility] (DEFAULT) [address] [place] [address] 31611 Total Cholesterol/HDL Ratio 3.4 Normal <4.5 [facility] Comment on above: Performed By: #### M GO, CHM7, IPB, CKB, TRIG, LDO #### [facility] (DEFAULT) [address] [place] [address] 98270 Triglyceride [Mass/Vol] 103 mg/dL Normal <150 [facility] Comment on above: Result Comment: [<15 0 mg/dL: Desirable] [150-199 mg/dL: Borderline] [200-499 mg/dL: High] [>500 mg/dL: Very High] Performed By: #### M CHEMO TELLO7, IPB, CKB, TRIG, LDO #### [facility] (DEFAULT) [address] [place] [address] 62231 MAGNESIUMon 05-12-2024 Magnesium [Mass/Vol] 2.6 mg/dL 1.6 - 2 .6 mg/dL [facility] Magnesium [Mass/Vol] 2.6 mg/dL Normal 1.6-2.6 [facility] Comment on above: Performed By: #### M ROXY TELLO, IPB, CKB, TRIG, LDO #### [facility] (DEFAULT) [address] [place] [address] 46429 No Panel Informationon 05-12 [facility] Interpretation and review of laboratory results Normal [facility] PHOSPHATE, INORGANICon 05-12 Phosphate [Mass/Vol] 3.7 mg/dL 2.2 - 4 .6 mg/dL [facility] Phosphorous 3.7 mg/dL Normal 2.2-4.6 [facility] Comment on above: Performed By: #### M RITA TELLOMMarleny, IPB, CKB, TRIG, LDO #### [facility] (DEFAULT) [address] [place] [address] 01954 CBC,PLATELETSon 05-11-2024 Erythrocyte distribution width (RBC) [Ratio] 18.8 % High 10.8 - 14.9 % [facility] Hematocrit (Bld) [Volume fraction] 27.1 % Low 34.9 - 44.3 % [facility] Hemoglobin (Bld) [Mass/Vol] 8 g/dL Low 11.4 - 15.2 g/dL [facility] Interpretation and review of laboratory results Abnormal [facility] MCH (RBC) [Entitic mass] 30.2 pg 25.9 - 33.9 pg [facility] MCHC (RBC) [Mass/Vol] 29.5 g/dL Low 31.4 - 35.9 g/dL [facility] MCV (RBC) [Entitic vol] 102.3 fL High 79.6 - 97.7 fL [facility] Platelet mean volume (Bld) [Entitic vol] 12.1 fL 8.5 - 12.2 fL [facility] Platelets (Bld) [#/Vol] 198 10*3/uL 150 - 393 K/uL [facility] RBC (Bld) [#/Vol] 2.65 10*6/uL Low [facility] WBC (Bld) [#/Vol] 10.52 10*3/uL 3.99 - 11.19 K/uL [facility] Hematocrit (Bld) [Volume fraction] 27.1 % Low 34.9-44.3 [facility] Comment on above: Performed By: #### M OMER, CHM7, IPB, CKB, TRIG, LDO #### [facility] (DEFAULT) [address] [place] [address] 49032 Hemoglobin (Bld) [Mass/Vol] 8.0 g/dL Low 11.4-15.2 [facility] Comment on above: Performed By: #### M OMER, CHM7, IPB, CKB, TRIG, LDO #### [facility] (DEFAULT) [address] [place] [address] 87331 MCV (RBC) [Entitic vol] 102.3 fL High 79.6-97.7 [facility] Comment on above: Performed By: #### M OMER, CHM7, IPB, CKB, TRIG, LDO #### [facility] (DEFAULT) [address] [place] [address] 05274 Mean Cell Hgb 30.2 pg Normal 25.9-33.9 [facility] Comment on above: Performed By: #### M GO, CHM7, IPB, CKB, TRIG, LDO #### [facility] (DEFAULT) [address] [place] [address] 40574 Mean Cell Hgb Conc 29.5 g/dL Low 31.4-35.9 [facility] Comment on above: Performed By: #### M GO, CHM7, IPB, CKB, TRIG, LDO #### [facility] (DEFAULT) [address] [place] [address] 03277 Platelet mean volume (Bld) [Entitic vol] 12.1 fL Normal 8.5-12.2 [facility] Comment on above: Performed By: #### M GO, CHM7, IPB, CKB, TRIG, LDO #### [facility] (DEFAULT) [address] [place] [address] 70019 Platelets (Bld) [#/Vol] 198 10*3/uL Normal 150-393 [facility] Comment on above: Performed By: #### M GO, CHM7, IPB, CKB, TRIG, LDO #### [facility] (DEFAULT) [address] [place] [address] 62833 RBC (Bld) [#/Vol] 2.65 10*6/uL Low 3.91-5.04 [facility] Comment on above: Performed By: #### M GO, CHM7, IPB, CKB, TRIG, LDO #### [facility] (DEFAULT) [address] [place] [address] 62960 RBC Distribution 18.8 % High 10.8-14.9 [facility] Comment on above: Performed By: #### M GO, CHM7, IPB, CKB, TRIG, LDO #### [facility] (DEFAULT) [address] [place] [address] 79001 WBC (Bld) [#/Vol] 10.52 10*3/uL Normal 3.99-11.19 [facility] Comment on above: Performed By: #### M OMER CHM7, IPB, CKB, TRIG, LDO #### [facility] (DEFAULT) [address] [place] [address] CHEM 7 (LYTES,BUN,CREA,GLUC) Ordered By: Kvng Hurst on 05-11-2024 Anion gap [Moles/Vol] 12 mmol/L 7 - 17 mmol/L [facility] Chloride [Moles/Vol] 118 mmol/L High 98 - 10 8 mmol/L [facility] CO2 [Moles/Vol] 19 mmol/L Low 21 - 31 mmol/L [facility] Creatinine [Mass/Vol] 1.6 mg/dL High 0.50 - 1.20 mg/dL [facility] eGFR, CKD-EPI, Female 32 Low - PINF [facility] Glucose [Mass/Vol] 64 mg/dL Low 70 - 99 mg/dL [facility] Interpretation and review of laboratory results Abnormal [facility] Osmolality Calc [Osmolality] 309 High [facility] Potassium [Moles/Vol] 2.8 mmol/L Critically low 3.5 - 5.0 mmol/L [facility] Sodium [Moles/Vol] 146 mmol/L High 135 - 145 mmol/L [facility] Urea nitrogen [Mass/Vol] 41 mg/dL High 7 - 25 mg/dL [facility] Urea nitrogen/Creatinine [Mass ratio] 26 mg/mg [facility] CHEM 7 (LYTES,BUN,CREA,GLUC) on 05-11-2024 Anion gap [Moles/Vol] 12 mmol/L Normal 7-17 [facility] Comment on above: Performed By: #### M OMER CHM7, IPB, CKB, TRIG, LDO #### [facility] (DEFAULT) [address] [place] [address] 97950 Chloride [Moles/Vol] 118 mmol/L High 98-108 [facility] Comment on above: Performed By: #### M GO, CHM7, IPB, CKB, TRIG, LDO #### [facility] (DEFAULT) [address] [place] [address] 90046 CO2 [Moles/Vol] 19 mmol/L Low 21-31 [facility] Comment on above: Performed By: #### M GO, CHM7, IPB, CKB, TRIG, LDO #### [facility] (DEFAULT) [address] [place] [address] 95914 Creatinine [Mass/Vol] 1.60 mg/dL High 0.50-1.20 [facility] Comment on above: Performed By: #### M GO, CHM7, IPB, CKB, TRIG, LDO #### [facility] (DEFAULT) [address] [place] [address] 64161 GFR/1.73 sq M.predicted among non-blacks MDRD (S/P/Bld) [Vol rate/Area] 32 mL/min/{1.73_m2} Low >=60 [facility] Comment on above: Result Comment: Repo rted eGFR is based on the CKD-EPI 2020 equation using creatinine, age, and sex. Performed By: #### M GO, CHM7, IPB, CKB, TRIG, LDO #### [facility] (DEFAULT) [address] [place] [address] 15335 Glucose [Mass/Vol] 64 mg/dL Low 70-99 [facility] Comment on above: Performed By: #### M GO, CHM7, IPB, CKB, TRIG, LDO #### [facility] (DEFAULT) [address] [place] [address] 72543 Osmolality [Osmolality] 309 mosm/kg High 278-305 [facility] Comment on above: Performed By: #### M GO, CHM7, IPB, CKB, TRIG, LDO #### [facility] (DEFAULT) [address] [place] [address] 38248 Potassium [Moles/Vol] 2.8 mmol/L Critically low 3.5-5.0 [facility] Comment on above: Performed By: #### M GO, CHM7, IPB, CKB, TRIG, LDO #### [facility] (DEFAULT) [address] [place] [address] 19314 Sodium [Moles/Vol] 146 mmol/L High 135-145 [facility] Comment on above: Performed By: #### M GO, CHM7, IPB, CKB, TRIG, LDO #### [facility] (DEFAULT) [address] [place] [address] 01930 Urea nitrogen [Mass/Vol] 41 mg/dL High 7-25 [facility] Comment on above: Performed By: #### M GO, CHM7, IPB, CKB, TRIG, LDO #### [facility] (DEFAULT) [address] [place] [address] 98409 Urea nitrogen/Creatinine [Mass ratio] 26 mg/mg Normal [facility] Comment on above: Performed By: #### M GO, CHM7, IPB, CKB, TRIG, LDO #### [facility] (DEFAULT) [address] [place] [address] 43950 Cardiac echo study Procedure on 05-11-2024 Radiology Study observation (narrative) [facility] FOLATE, SERUMon 05-11-2024 Folate [Mass/Vol] 19.69 ng/mL 5.38 - PINF ng/mL [facility] Folate 19.69 ng/mL Normal >5.38 [facility] Comment on above: Performed By: #### M GO, CHM7, IPB, CKB, TRIG, LDO #### [facility] (DEFAULT) [address] [place] [address] 10174 GLUCOSE POCon 05-11-2024 Glucose [Mass/Vol] 108 mg/dL High 70 - 99 mg/dL [facility] Interpretation and review of laboratory results Abnormal [facility] POC Sample Type CAPBL [facility] Glucose [Mass/Vol] 89 mg/dL 70 - 99 mg/dL [facility] POC Sample Type CAP[facility] MAGNESIUMon 05-11-2024 Interpretation and review of laboratory results Abnormal [facility] Magnesium [Mass/Vol] 1.2 mg/dL Low 1.6 - 2 .6 mg/dL [facility] Magnesium [Mass/Vol] 1.2 mg/dL Low 1.6-2.6 [facility] Comment on above: Performed By: #### M GO, CHM7, IPB, CKB, TRIG, LDO #### [facility] (DEFAULT) [address] [place] [address] 50649 No Panel Informationon 05-11 Interpretation and review of laboratory results Normal [facility] PHOSPHATE, INORGANICon 05-11 Phosphate [Mass/Vol] 2.8 mg/dL 2.2 - 4 .6 mg/dL [facility] Phosphorous 2.8 mg/dL Normal 2.2-4.6 [facility] Comment on above: Performed By: #### M GO, CHM7, IPB, CKB, TRIG, LDO #### [facility] (DEFAULT) [address] [place] [address] 11047 Bacteria identified Cx Nom ( Bld)on 05-10-2024 Bacteria identified Cx Nom (Unsp spec) NO GROWTH DAY 5 OF 5 [facility] Bacteria identified Cx Nom (Unsp spec) NO GROWTH DAY 5 OF 5 [facility] Bacteria identified Respirat ory culture Nom (Unsp spec)Ordered By: Michael Mora on 05-10-2024 Bacteria identified Cx Nom (Unsp spec) Growth [facility] Bacteria identified Cx Nom (Unsp spec) Light Growth Common oropharyngeal microbes [facility] Microscopic observation Other stain Nom (Unsp spec) Neutrophils, Heavy [facility] Microscopic observation Other stain Nom (Unsp spec) Contaminating bacteria and epithelials present [facility] Microscopic observation Other stain Nom (Unsp spec) Specimen is of optimum quality [facility] CBC,PLATELETSon 05-10-2024 Erythrocyte distribution width (RBC) [Ratio] 19.2 % High 10.8 - 14.9 % [facility] Hematocrit (Bld) [Volume fraction] 27.9 % Low 34.9 - 44.3 % [facility] Hemoglobin (Bld) [Mass/Vol] 8.4 g/dL Low 11.4 - 15.2 g/dL [facility] Interpretation and review of laboratory results Abnormal [facility] MCH (RBC) [Entitic mass] 30.1 pg 25.9 - 33.9 pg [facility] MCHC (RBC) [Mass/Vol] 30.1 g/dL Low 31.4 - 35.9 g/dL [facility] MCV (RBC) [Entitic vol] 100 fL High 79.6 - 97.7 fL [facility] Platelet mean volume (Bld) [Entitic vol] 12.6 fL High 8.5 - 12.2 fL [facility] Platelets (Bld) [#/Vol] 210 10*3/uL 150 - 393 K/uL [facility] RBC (Bld) [#/Vol] 2.79 10*6/uL Low [facility] WBC (Bld) [#/Vol] 16 10*3/uL High 3.99 - 11.19 K/uL [facility] Hematocrit (Bld) [Volume fraction] 27.9 % Low 34.9-44.3 [facility] Comment on above: Performed By: #### G ASVL #### [facility] (DEFAULT) [address] [place] [address] Hemoglobin (Bld) [Mass/Vol] 8.4 g/dL Low 11.4-15.2 [facility] Comment on above: Performed By: #### G ASVL #### [facility] (DEFAULT) [address] [place] [address] 30513 MCV (RBC) [Entitic vol] 100.0 fL High 79.6-97.7 [facility] Comment on above: Performed By: #### G ASVL #### [facility] (DEFAULT) [address] [place] [address] 33097 Mean Cell Hgb 30.1 pg Normal 25.9-33.9 [facility] Comment on above: Performed By: #### G ASVL #### [facility] (DEFAULT) [address] [place] [address] 15254 Mean Cell Hgb Conc 30.1 g/dL Low 31.4-35.9 [facility] Comment on above: Performed By: #### G ASVL #### [facility] (DEFAULT) [address] [place] [address] 80487 Platelet mean volume (Bld) [Entitic vol] 12.6 fL High 8.5-12.2 [facility] Comment on above: Performed By: #### G ASVL #### [facility] (DEFAULT) [address] [place] [address] 33907 Platelets (Bld) [#/Vol] 210 10*3/uL Normal 150-393 [facility] Comment on above: Performed By: #### G ASVL #### [facility] (DEFAULT) [address] [place] [address] 45651 RBC (Bld) [#/Vol] 2.79 10*6/uL Low 3.91-5.04 [facility] Comment on above: Performed By: #### G ASVL #### [facility] (DEFAULT) [address] [address] RBC Distribution 19.2 % High 10.8-14.9 [facility] Comment on above: Performed By: #### G ASVL #### [facility] (DEFAULT) [address] [place] [address] WBC (Bld) [#/Vol] 16.00 10*3/uL High 3.99-11.19 [facility] Comment on above: Performed By: #### G ASVL #### [facility] (DEFAULT) [address] [place] [address] Erythrocyte distribution width (RBC) [Ratio] 19.2 % High 10.8 - 14.9 % [facility] Hematocrit (Bld) [Volume fraction] 26.4 % Low 34.9 - 44.3 % [facility] Hemoglobin (Bld) [Mass/Vol] 7.9 g/dL Low 11.4 - 15.2 g/dL [facility] Interpretation and review of laboratory results Abnormal [facility] MCH (RBC) [Entitic mass] 30.3 pg 25.9 - 33.9 pg [facility] MCHC (RBC) [Mass/Vol] 29.9 g/dL Low 31.4 - 35.9 g/dL [facility] MCV (RBC) [Entitic vol] 101.1 fL High 79.6 - 97.7 fL [facility] Platelet mean volume (Bld) [Entitic vol] 12.6 fL High 8.5 - 12.2 fL [facility] Platelets (Bld) [#/Vol] 161 10*3/uL 150 - 393 K/uL [facility] RBC (Bld) [#/Vol] 2.61 10*6/uL Low [facility] WBC (Bld) [#/Vol] 18.44 10*3/uL High 3.99 - 11.19 K/uL [facility] CHEM 7 (LYTES,BUN,CREA,GLUC) on 05-10-2024 Anion gap [Moles/Vol] 14 mmol/L 7 - 17 mmol/L [facility] Chloride [Moles/Vol] 105 mmol/L 98 - 10 8 mmol/L [facility] CO2 [Moles/Vol] 27 mmol/L 21 - 31 mmol/L [facility] Creatinine [Mass/Vol] 2.5 mg/dL High 0.50 - 1.20 mg/dL [facility] eGFR, CKD-EPI, Female 19 Low - PINF [facility] Glucose [Mass/Vol] 106 mg/dL High 70 - 99 mg/dL [facility] Interpretation and review of laboratory results Abnormal [facility] Osmolality Calc [Osmolality] 309 High [facility] Potassium [Moles/Vol] 4 mmol/L 3.5 - 5.0 mmol/L [facility] Sodium [Moles/Vol] 142 mmol/L 135 - 145 mmol/L [facility] Urea nitrogen [Mass/Vol] 48 mg/dL High 7 - 25 mg/dL [facility] Urea nitrogen/Creatinine [Mass ratio] 19 mg/mg [facility] CONTINUOUS CARDIAC MONITORIN G STRIPon 05-10-2024 [facility] FERRITINon 05-10-2024 Ferritin [Mass/Vol] 634.7 ng/mL High 7.3 - 270.7 ng/mL [facility] Interpretation and review of laboratory results Abnormal [facility] GLUCOSE POCon 05-10-2024 Glucose [Mass/Vol] 145 mg/dL High 70 - 99 mg/dL [facility] Glucose [Mass/Vol] 134 mg/dL High 70 - 99 mg/dL [facility] Glucose [Mass/Vol] 94 mg/dL 70 - 99 mg/dL [facility] IONIZED CALCIUM, WHOLE BLOOD Ordered By: Cecil Guillen on 05-10-2024 Calcium.ionized (Bld) [Moles/Vol] 4.07 mg/dL Low 4.60 - 5.30 mg/dL [facility] Interpretation and review of laboratory results Abnormal [facility] IRON/IRON BINDING/TRANSFERRI Non 05-10-2024 Interpretation and review of laboratory results Abnormal [facility] Iron [Mass/Vol] 68 ug/dL [facility] Iron binding capacity [Mass/Vol] 140 Low [facility] Iron saturation [Mass fraction] 49 % 20 - 55 % [facility] Transferrin [Mass/Vol] 112 mg/dL Low 200 - 400 mg/dL [facility] MAGNESIUMon 05-10-2024 Magnesium [Mass/Vol] 2 mg/dL 1.6 - 2 .6 mg/dL [facility] No Panel Informationon 05-10 Interpretation and review of laboratory results Abnormal [facility] POC Sample Type CAPBL [facility] Interpretation and review of laboratory results Normal [facility] PHOSPHATE, INORGANICon 05-10 Phosphate [Mass/Vol] 3.7 mg/dL 2.2 - 4 .6 mg/dL [facility] VITAMIN B12on 05-10-2024 Cobalamin (Vitamin B12) [Mass/Vol] 1322 pg/mL High 211 - 911 pg/mL [facility] Interpretation and review of laboratory results Abnormal [facility] BLOOD CULTUREon 05-09-2024 Bacteria identified Cx Nom (Unsp spec) NO GROWTH DAY 5 OF 5 Normal [facility] Comment on above: Order Comment: 2 Bot tles (1 Set - consists of 1 Aerobic bottle and 1 Anaerobic bottle) -1st Peripheral DrawFor vacutainer method draw: Fill aerobic bottle first, then anaerobic Performed By: #### M OMER, CHM7, IPB, CKB, TRIG, LDO #### [facility] (DEFAULT) [address] [place] [address] C DIFFICILE TWO STEPOrdered By: Stanford Auguste on 05-09-2024 C. difficile DNA JEANA+probe Ql (Unsp spec) Negative Negative [facility] Interpretation and review of laboratory results Normal [facility] CBC,PLATELETSon 05-09-2024 Hematocrit (Bld) [Volume fraction] 26.4 % Low 34.9-44.3 [facility] Comment on above: Performed By: #### M GO, CHM7, IPB, CKB, TRIG, LDO #### [facility] (DEFAULT) [address] [place] [address] 40018 Hemoglobin (Bld) [Mass/Vol] 7.9 g/dL Low 11.4-15.2 [facility] Comment on above: Performed By: #### M GO, CHM7, IPB, CKB, TRIG, LDO #### [facility] (DEFAULT) [address] [place] [address] 99648 MCV (RBC) [Entitic vol] 101.1 fL High 79.6-97.7 [facility] Comment on above: Performed By: #### M GO, CHM7, IPB, CKB, TRIG, LDO #### [facility] (DEFAULT) [address] [place] [address] 71082 Mean Cell Hgb 30.3 pg Normal 25.9-33.9 [facility] Comment on above: Performed By: #### M GO, CHM7, IPB, CKB, TRIG, LDO #### [facility] (DEFAULT) [address] [place] [address] 70964 Mean Cell Hgb Conc 29.9 g/dL Low 31.4-35.9 [facility] Comment on above: Performed By: #### M GO, CHM7, IPB, CKB, TRIG, LDO #### [facility] (DEFAULT) [address] [place] [address] 20220 Platelet mean volume (Bld) [Entitic vol] 12.6 fL High 8.5-12.2 [facility] Comment on above: Performed By: #### M GO, CHM7, IPB, CKB, TRIG, LDO #### [facility] (DEFAULT) [address] [place] [address] 39167 Platelets (Bld) [#/Vol] 161 10*3/uL Normal 150-393 [facility] Comment on above: Performed By: #### M GO, CHM7, IPB, CKB, TRIG, LDO #### [facility] (DEFAULT) [address] [place] [address] 57991 RBC (Bld) [#/Vol] 2.61 10*6/uL Low 3.91-5.04 [facility] Comment on above: Performed By: #### M GO, CHM7, IPB, CKB, TRIG, LDO #### [facility] (DEFAULT) [address] [place] [address] 92500 RBC Distribution 19.2 % High 10.8-14.9 [facility] Comment on above: Performed By: #### M GO, CHM7, IPB, CKB, TRIG, LDO #### [facility] (DEFAULT) [address] [place] [address] 74635 WBC (Bld) [#/Vol] 18.44 10*3/uL High 3.99-11.19 [facility] Comment on above: Performed By: #### M GO, CHM7, IPB, CKB, TRIG, LDO #### [facility] (DEFAULT) [address] [place] [address] 36025 Erythrocyte distribution width (RBC) [Ratio] 19.2 % High 10.8 - 14.9 % [facility] Hematocrit (Bld) [Volume fraction] 28.1 % Low 34.9 - 44.3 % [facility] Hemoglobin (Bld) [Mass/Vol] 8.8 g/dL Low 11.4 - 15.2 g/dL [facility] Interpretation and review of laboratory results Abnormal [facility] MCH (RBC) [Entitic mass] 30.6 pg 25.9 - 33.9 pg [facility] MCHC (RBC) [Mass/Vol] 31.3 g/dL Low 31.4 - 35.9 g/dL [facility] MCV (RBC) [Entitic vol] 97.6 fL 79.6 - 97.7 fL [facility] Platelet mean volume (Bld) [Entitic vol] [facility] Platelets (Bld) [#/Vol] 118 10*3/uL Low 150 - 393 K/uL [facility] RBC (Bld) [#/Vol] 2.88 10*6/uL Low [facility] WBC (Bld) [#/Vol] 16.92 10*3/uL High 3.99 - 11.19 K/uL [facility] Hematocrit (Bld) [Volume fraction] 28.1 % Low 34.9-44.3 [facility] Comment on above: Performed By: #### R ES #### [facility] (DEFAULT) [address] [address] Hemoglobin (Bld) [Mass/Vol] 8.8 g/dL Low 11.4-15.2 [facility] Comment on above: Performed By: #### R ES #### [facility] (DEFAULT) [address] [address] MCV (RBC) [Entitic vol] 97.6 fL Normal 79.6-97.7 [facility] Comment on above: Performed By: #### R ES #### [facility] (DEFAULT) [address] [address] Mean Cell Hgb 30.6 pg Normal 25.9-33.9 [facility] Comment on above: Performed By: #### R ES #### [facility] (DEFAULT) [address] 685[address] Mean Cell Hgb Conc 31.3 g/dL Low 31.4-35.9 [facility] Comment on above: Performed By: #### R ES #### [facility] (DEFAULT) [address] [address] Mean Platelet Volume Normal [facility] Comment on above: Result Comment: Not measured Performed By: #### R ES #### [facility] (DEFAULT) [address] [address] Platelets (Bld) [#/Vol] 118 10*3/uL Low 150-393 [facility] Comment on above: Performed By: #### R ES #### [facility] (DEFAULT) [address] [place] [address] 93639 RBC (Bld) [#/Vol] 2.88 10*6/uL Low 3.91-5.04 [facility] Comment on above: Performed By: #### R ES #### [facility] (DEFAULT) [address] [place] [address] 35558 RBC Distribution 19.2 % High 10.8-14.9 [facility] Comment on above: Performed By: #### R ES #### [facility] (DEFAULT) [address] [place] [address] 48481 WBC (Bld) [#/Vol] 16.92 10*3/uL High 3.99-11.19 [facility] Comment on above: Performed By: #### R ES #### [facility] (DEFAULT) [address] [place] [address] 48051 CHEM 7 (LYTES,BUN,CREA,GLUC) on 05-09-2024 Anion gap [Moles/Vol] 14 mmol/L Normal 7-17 [facility] Comment on above: Performed By: #### M GO, CHM7, IPB, CKB, TRIG, LDO #### [facility] (DEFAULT) [address] [place] [address] 83085 Chloride [Moles/Vol] 105 mmol/L Normal 98-108 [facility] Comment on above: Performed By: #### M GO, CHM7, IPB, CKB, TRIG, LDO #### [facility] (DEFAULT) [address] [place] [address] 85248 CO2 [Moles/Vol] 27 mmol/L Normal 21-31 [facility] Comment on above: Performed By: #### M GO, CHM7, IPB, CKB, TRIG, LDO #### [facility] (DEFAULT) [address] [place] [address] 74536 Creatinine [Mass/Vol] 2.50 mg/dL High 0.50-1.20 [facility] Comment on above: Performed By: #### M GO, CHM7, IPB, CKB, TRIG, LDO #### [facility] (DEFAULT) [address] [place] [address] 23392 GFR/1.73 sq M.predicted among non-blacks MDRD (S/P/Bld) [Vol rate/Area] 19 mL/min/{1.73_m2} Low >=60 [facility] Comment on above: Result Comment: Repo rted eGFR is based on the CKD-EPI 2020 equation using creatinine, age, and sex. Performed By: #### M GO, CHM7, IPB, CKB, TRIG, LDO #### [facility] (DEFAULT) [address] [place] [address] 49703 Glucose [Mass/Vol] 106 mg/dL High 70-99 [facility] Comment on above: Performed By: #### M GO, CHM7, IPB, CKB, TRIG, LDO #### [facility] (DEFAULT) [address] [place] [address] 94284 Osmolality [Osmolality] 309 mosm/kg High 278-305 [facility] Comment on above: Performed By: #### M GO, CHM7, IPB, CKB, TRIG, LDO #### [facility] (DEFAULT) [address] [place] [address] 32880 Potassium [Moles/Vol] 4.0 mmol/L Normal 3.5-5.0 [facility] Comment on above: Performed By: #### M GO, CHM7, IPB, CKB, TRIG, LDO #### [facility] (DEFAULT) [address] [place] [address] 22296 Sodium [Moles/Vol] 142 mmol/L Normal 135-145 [facility] Comment on above: Performed By: #### M GO, CHM7, IPB, CKB, TRIG, LDO #### [facility] (DEFAULT) [address] [place] [address] Urea nitrogen [Mass/Vol] 48 mg/dL High 7-25 [facility] Comment on above: Performed By: #### M GO, CHM7, IPB, CKB, TRIG, LDO #### [facility] (DEFAULT) [address] [place] [address] Urea nitrogen/Creatinine [Mass ratio] 19 mg/mg Normal [facility] Comment on above: Performed By: #### M GO, CHM7, IPB, CKB, TRIG, LDO #### [facility] (DEFAULT) [address] [place] [address] 05826 Anion gap [Moles/Vol] 13 mmol/L 7 - 17 mmol/L [facility] Chloride [Moles/Vol] 104 mmol/L 98 - 10 8 mmol/L [facility] CO2 [Moles/Vol] 27 mmol/L 21 - 31 mmol/L [facility] Creatinine [Mass/Vol] 2.66 mg/dL High 0.50 - 1.20 mg/dL [facility] eGFR, CKD-EPI, Female 17 Low - PINF [facility] Glucose [Mass/Vol] 139 mg/dL High 70 - 99 mg/dL [facility] Interpretation and review of laboratory results Abnormal [facility] Osmolality Calc [Osmolality] 303 [facility] Potassium [Moles/Vol] 4.1 mmol/L 3.5 - 5.0 mmol/L [facility] Sodium [Moles/Vol] 140 mmol/L 135 - 145 mmol/L [facility] Urea nitrogen [Mass/Vol] 35 mg/dL High 7 - 25 mg/dL [facility] Urea nitrogen/Creatinine [Mass ratio] 13 mg/mg [facility] Anion gap [Moles/Vol] 13 mmol/L Normal 7-17 [facility] Comment on above: Performed By: #### M GO, CHM7, IPB, CKB, TRIG, LDO #### [facility] (DEFAULT) [address] [place] [address] 44833 Chloride [Moles/Vol] 104 mmol/L Normal 98-108 [facility] Comment on above: Performed By: #### M GO, CHM7, IPB, CKB, TRIG, LDO #### [facility] (DEFAULT) [address] [place] [address] 60636 CO2 [Moles/Vol] 27 mmol/L Normal 21-31 [facility] Comment on above: Performed By: #### M GO, CHM7, IPB, CKB, TRIG, LDO #### [facility] (DEFAULT) [address] [place] [address] 62006 Creatinine [Mass/Vol] 2.66 mg/dL High 0.50-1.20 [facility] Comment on above: Performed By: #### M GO, CHM7, IPB, CKB, TRIG, LDO #### [facility] (DEFAULT) [address] [place] [address] 80754 GFR/1.73 sq M.predicted among non-blacks MDRD (S/P/Bld) [Vol rate/Area] 17 mL/min/{1.73_m2} Low >=60 [facility] Comment on above: Result Comment: Repo rted eGFR is based on the CKD-EPI 2020 equation using creatinine, age, and sex. Performed By: #### M GO, CHM7, IPB, CKB, TRIG, LDO #### [facility] (DEFAULT) [address] [place] [address] 25579 Glucose [Mass/Vol] 139 mg/dL High 70-99 [facility] Comment on above: Performed By: #### M GO, CHM7, IPB, CKB, TRIG, LDO #### [facility] (DEFAULT) [address] [place] [address] 95409 Osmolality [Osmolality] 303 mosm/kg Normal 278-305 [facility] Comment on above: Performed By: #### M GO, CHM7, IPB, CKB, TRIG, LDO #### [facility] (DEFAULT) [address] [place] [address] 23247 Potassium [Moles/Vol] 4.1 mmol/L Normal 3.5-5.0 [facility] Comment on above: Performed By: #### M GO, CHM7, IPB, CKB, TRIG, LDO #### [facility] (DEFAULT) [address] [place] [address] 70701 Sodium [Moles/Vol] 140 mmol/L Normal 135-145 [facility] Comment on above: Performed By: #### M GO, CHM7, IPB, CKB, TRIG, LDO #### [facility] (DEFAULT) [address] [place] [address] 43649 Urea nitrogen [Mass/Vol] 35 mg/dL High 7-25 [facility] Comment on above: Performed By: #### M GO, CHM7, IPB, CKB, TRIG, LDO #### [facility] (DEFAULT) [address] [place] [address] 17098 Urea nitrogen/Creatinine [Mass ratio] 13 mg/mg Normal [facility] Comment on above: Performed By: #### M GO, CHM7, IPB, CKB, TRIG, LDO #### [facility] (DEFAULT) [address] [place] [address] 57854 EXTRA MICROon 05-09-2024 [facility] FERRITINon 05-09-2024 Ferritin [Mass/Vol] 634.7 ng/mL High 7.3-270.7 [facility] Comment on above: Performed By: #### M GO, CHM7, IPB, CKB, TRIG, LDO #### [facility] (DEFAULT) [address] [place] [address] 64567 GENERAL PROCEDUREon 05-09-19 [facility] GENERAL PROCEDUREOrdered By: Mulugeta Barker on 05-09-2024 [facility] Work Phone: GLUCOSE POCon 05-09-2024 Glucose [Mass/Vol] 109 mg/dL High 70 - 99 mg/dL [facility] Glucose [Mass/Vol] 118 mg/dL High 70 - 99 mg/dL [facility] Glucose [Mass/Vol] 144 mg/dL High 70 - 99 mg/dL [facility] Glucose [Mass/Vol] 164 mg/dL High 70 - 99 mg/dL [facility] IONIZED CALCIUM, WHOLE BLOOD on 05-09-2024 ICA 4.07 mg/dL Low 4.60-5.30 [facility] Comment on above: Order Comment: If io nized calcium is less than or equal to 3.0 mg/dL, recheck ionized calcium 2 hours after replacement. Performed By: #### M OMER, CHM7, IPB, CKB, TRIG, LDO #### [facility] (DEFAULT) [address] [place] [address] 60868 ICA 4.38 mg/dL Low 4.60-5.30 [facility] Comment on above: Order Comment: If io nized calcium is less than or equal to 3.0 mg/dL, recheck ionized calcium 2 hours after replacement. Performed By: #### M GO, CHM7, IPB, CKB, TRIG, LDO #### [facility] (DEFAULT) [address] [place] [address] 94582 IONIZED CALCIUM, WHOLE BLOOD Ordered By: Diana Roblero on 05-09-2024 Calcium.ionized (Bld) [Moles/Vol] 4.38 mg/dL Low 4.60 - 5.30 mg/dL [facility] Interpretation and review of laboratory results Abnormal [facility] IRON/IRON BINDING/TRANSFERRI Non 05-09-2024 Iron [Mass/Vol] 68 ug/dL Normal 40-174 [facility] Comment on above: Performed By: #### M GO, CHM7, IPB, CKB, TRIG, LDO #### [facility] (DEFAULT) [address] [place] [address] 48229 Iron Saturation 49 % Normal 20-55 [facility] Comment on above: Performed By: #### M GO, CHM7, IPB, CKB, TRIG, LDO #### [facility] (DEFAULT) [address] [place] [address] 26585 Total Iron Binding Capacity 140 mcg/dL Low 250-425 [facility] Comment on above: Performed By: #### M GO, CHM7, IPB, CKB, TRIG, LDO #### [facility] (DEFAULT) [address] [place] [address] 41111 Transferrin [Mass/Vol] 112 mg/dL Low 200-400 [facility] Comment on above: Performed By: #### M GO, CHM7, IPB, CKB, TRIG, LDO #### [facility] (DEFAULT) [address] [place] [address] 14928 MAGNESIUMon 05-09-2024 Magnesium [Mass/Vol] 2.0 mg/dL Normal 1.6-2.6 [facility] Comment on above: Performed By: #### M GO, CHM7, IPB, CKB, TRIG, LDO #### [facility] (DEFAULT) [address] [place] [address] 11360 Magnesium [Mass/Vol] 2 mg/dL 1.6 - 2 .6 mg/dL [facility] Magnesium [Mass/Vol] 2.0 mg/dL Normal 1.6-2.6 [facility] Comment on above: Performed By: #### M GO, CHM7, IPB, CKB, TRIG, LDO #### [facility] (DEFAULT) [address] [place] [address] 69083 MR Cervical spine WO and W c ontrast Brittani 05-09-2024 RADIOLOGY RADIOLOGY [facility] Radiology Study observation (narrative) [facility] MRI SPINE CERVICAL WITH AND WITHOUT CONTRASTon [...] artifact in the upper thoracic spine. Normal [facility] No Panel Informationon 05-09 Interpretation and review of laboratory results Normal [facility] Interpretation and review of laboratory results Abnormal [facility] POC Sample Type CAPBL [facility] PHOSPHATE, INORGANICon 05-09 Phosphorous 3.7 mg/dL Normal 2.2-4.6 [facility] Comment on above: Performed By: #### M OMER, RITAM7, IPB, CKB, TRIG, LDO #### [facility] (DEFAULT) [address] [place] [address] 50314 Interpretation and review of laboratory results Normal [facility] Phosphate [Mass/Vol] 3.8 mg/dL 2.2 - 4 .6 mg/dL [facility] Phosphate [Mass/Vol] 3.8 mg/dL 2.2 - 4 .6 mg/dL [facility] Phosphorous 3.8 mg/dL Normal 2.2-4.6 [facility] Comment on above: Order Comment: If ph osphate level is less than or equal to 2.0 mg/dL, recheck phosphate 6 hours after replacement. Performed By: #### F CRAG #### [facility] (DEFAULT) [address] [place] [address] Phosphorous 3.8 mg/dL Normal 2.2-4.6 [facility] Comment on above: Performed By: #### M OMER, RITAM7, IPB, CKB, TRIG, LDO #### [facility] (DEFAULT) [address] [place] [address] 05876 US.doppler Upper extremity v ein - leftOrdered By: Pratik Hooper on 05-09-2024 [facility] Work Phone: US.doppler Upper extremity v ein - lefton 05-09-2024 Radiology Study observation (narrative) [facility] VENOUS BLOOD GASon Base excess Calc (Bld) [Moles/Vol] 2.1 mmol/L -3.0 - 3.0 mmol/L [facility] CO2 (Bld) [Partial pressure] 41 mm[Hg] [facility] HCO3 (Bld) [Moles/Vol] 27 mmol/L 22 - 29 mmol/L [facility] Interpretation and review of laboratory results Abnormal [facility] Oxygen (Bld) [Partial pressure] 51 mm[Hg] mm Hg [facility] Oxygen saturation in Blood 85 % High 70 - 80 % [facility] pH (Bld) 7.42 [pH] 7.32 - 7.43 [facility] Specimen source Nom (Unsp spec) Venous [facility] Base Excess 2.1 mmol/L Normal -3.0-3.0 [facility] Comment on above: Performed By: #### M GO, CHM7, IPB, CKB, TRIG, LDO #### [facility] (DEFAULT) [address] [place] [address] 48688 HCO3 (Bld) [Moles/Vol] 27 mmol/L Normal 22-29 [facility] Comment on above: Performed By: #### M GO, CHM7, IPB, CKB, TRIG, LDO #### [facility] (DEFAULT) [address] [place] [address] 89668 Oxygen saturation in Blood 85 % High 70-80 [facility] Comment on above: Performed By: #### M GO, CHM7, IPB, CKB, TRIG, LDO #### [facility] (DEFAULT) [address] [place] [address] 28288 pCO2, Venous 41 mm Hg Normal 36-52 [facility] Comment on above: Performed By: #### M GO, CHM7, IPB, CKB, TRIG, LDO #### [facility] (DEFAULT) [address] [place] [address] 35950 pH, Venous 7.42 Normal 7.32-7.43 [facility] Comment on above: Performed By: #### M GO, CHM7, IPB, CKB, TRIG, LDO #### [facility] (DEFAULT) [address] [place] [address] 82546 pO2, Venous 51 mm Hg Normal [facility] Comment on above: Result Comment: Veno us pO2 is not recommended for the evaluation of oxygen status, clinical correlation is recommended. Performed By: #### M GO, CHM7, IPB, CKB, TRIG, LDO #### [facility] (DEFAULT) [address] [place] [address] 50818 Specimen type Nom (Spec) Venous Normal [facility] Comment on above: Performed By: #### M GO, CHM7, IPB, CKB, TRIG, LDO #### [facility] (DEFAULT) [address] [place] [address] 94388 VITAMIN B12on 05-09-2024 Cobalamin (Vitamin B12) [Mass/Vol] 1322 pg/mL High 211-911 [facility] Comment on above: Result Comment: Test ing of Methylmalonic Acid and Intrinsic Factor Blocking Antibody are recommended if clinical suspicion for pernicious anemia due to B12 deficiency is high for patients with intermediate B12 levels (211 to 400 pg/mL) to rule out spurious heterophile antibodies. Performed By: #### M GO, CHM7, IPB, CKB, TRIG, LDO #### [facility] (DEFAULT) [address] [place] [address] 40527 C DIFFICILE TWO STEPon 05-08 C Difficile By Pcr Negative Normal Negative [facility] Comment on above: Order Comment: C. di [...] ROXY TELLO, STIVEN, MERONB, TRIG, LDO #### [facility] (DEFAULT) [address] [place] [address] CBC,PLATELETSon 05-08-2024 Erythrocyte distribution width (RBC) [Ratio] 20.5 % High 10.8 - 14.9 % [facility] Hematocrit (Bld) [Volume fraction] 28.9 % Low 34.9 - 44.3 % [facility] Hemoglobin (Bld) [Mass/Vol] 8.8 g/dL Low 11.4 - 15.2 g/dL [facility] Interpretation and review of laboratory results Abnormal [facility] MCH (RBC) [Entitic mass] 30.1 pg 25.9 - 33.9 pg [facility] MCHC (RBC) [Mass/Vol] 30.4 g/dL Low 31.4 - 35.9 g/dL [facility] MCV (RBC) [Entitic vol] 99 fL High 79.6 - 97.7 fL [facility] Platelet mean volume (Bld) [Entitic vol] [facility] Platelets (Bld) [#/Vol] 77 10*3/uL Low 150 - 393 K/uL [facility] RBC (Bld) [#/Vol] 2.92 10*6/uL Low [facility] WBC (Bld) [#/Vol] 15.34 10*3/uL High 3.99 - 11.19 K/uL [facility] Hematocrit (Bld) [Volume fraction] 28.9 % Low 34.9-44.3 [facility] Comment on above: Performed By: #### ROXY ROA, STIVEN, CKB, TRIG, LDO #### [facility] (DEFAULT) [address] [place] [address] Hemoglobin (Bld) [Mass/Vol] 8.8 g/dL Low 11.4-15.2 [facility] Comment on above: Performed By: #### M GO, CHM7, IPB, CKB, TRIG, LDO #### [facility] (DEFAULT) [address] [place] [address] 69845 MCV (RBC) [Entitic vol] 99.0 fL High 79.6-97.7 [facility] Comment on above: Performed By: #### M GO, CHM7, IPB, CKB, TRIG, LDO #### [facility] (DEFAULT) [address] [place] [address] 09167 Mean Cell Hgb 30.1 pg Normal 25.9-33.9 [facility] Comment on above: Performed By: #### M GO, CHM7, IPB, CKB, TRIG, LDO #### [facility] (DEFAULT) [address] [place] [address] 46343 Mean Cell Hgb Conc 30.4 g/dL Low 31.4-35.9 [facility] Comment on above: Performed By: #### M GO, CHM7, IPB, CKB, TRIG, LDO #### [facility] (DEFAULT) [address] [place] [address] 77797 Mean Platelet Volume Normal [facility] Comment on above: Result Comment: Not measured Performed By: #### M GO, CHM7, IPB, CKB, TRIG, LDO #### [facility] (DEFAULT) [address] [place] [address] 65861 Platelets (Bld) [#/Vol] 77 10*3/uL Low 150-393 [facility] Comment on above: Performed By: #### M GO, CHM7, IPB, CKB, TRIG, LDO #### [facility] (DEFAULT) [address] [place] [address] 68958 RBC (Bld) [#/Vol] 2.92 10*6/uL Low 3.91-5.04 [facility] Comment on above: Performed By: #### M GO, CHM7, IPB, CKB, TRIG, LDO #### [facility] (DEFAULT) [address] [place] [address] RBC Distribution 20.5 % High 10.8-14.9 [facility] Comment on above: Performed By: #### M GO, CHM7, IPB, CKB, TRIG, LDO #### [facility] (DEFAULT) [address] [place] [address] WBC (Bld) [#/Vol] 15.34 10*3/uL High 3.99-11.19 [facility] Comment on above: Performed By: #### M GO, CHM7, IPB, CKB, TRIG, LDO #### [facility] (DEFAULT) [address] [place] [address] 44924 CHEM 7 (LYTES,BUN,CREA,GLUC) on 05-08-2024 Anion gap [Moles/Vol] 16 mmol/L 7 - 17 mmol/L [facility] Chloride [Moles/Vol] 106 mmol/L 98 - 10 8 mmol/L [facility] CO2 [Moles/Vol] 22 mmol/L 21 - 31 mmol/L [facility] Creatinine [Mass/Vol] 2.34 mg/dL High 0.50 - 1.20 mg/dL [facility] eGFR, CKD-EPI, Female 20 Low - PINF [facility] Glucose [Mass/Vol] 109 mg/dL High 70 - 99 mg/dL [facility] Interpretation and review of laboratory results Abnormal [facility] Osmolality Calc [Osmolality] 299 [facility] Potassium [Moles/Vol] 4 mmol/L 3.5 - 5.0 mmol/L [facility] Sodium [Moles/Vol] 140 mmol/L 135 - 145 mmol/L [facility] Urea nitrogen [Mass/Vol] 28 mg/dL High 7 - 25 mg/dL [facility] Urea nitrogen/Creatinine [Mass ratio] 12 mg/mg [facility] Anion gap [Moles/Vol] 16 mmol/L Normal 7-17 [facility] Comment on above: Performed By: #### M GO, CHM7, IPB, CKB, TRIG, LDO #### [facility] (DEFAULT) [address] [place] [address] 72059 Chloride [Moles/Vol] 106 mmol/L Normal 98-108 [facility] Comment on above: Performed By: #### M GO, CHM7, IPB, CKB, TRIG, LDO #### [facility] (DEFAULT) [address] [place] [address] 77428 CO2 [Moles/Vol] 22 mmol/L Normal 21-31 [facility] Comment on above: Performed By: #### M GO, CHM7, IPB, CKB, TRIG, LDO #### [facility] (DEFAULT) [address] [place] [address] 91922 Creatinine [Mass/Vol] 2.34 mg/dL High 0.50-1.20 [facility] Comment on above: Performed By: #### M GO, CHM7, IPB, CKB, TRIG, LDO #### [facility] (DEFAULT) [address] [place] [address] 29640 GFR/1.73 sq M.predicted among non-blacks MDRD (S/P/Bld) [Vol rate/Area] 20 mL/min/{1.73_m2} Low >=60 [facility] Comment on above: Result Comment: Repo rted eGFR is based on the CKD-EPI 2020 equation using creatinine, age, and sex. Performed By: #### M GO, CHM7, IPB, CKB, TRIG, LDO #### [facility] (DEFAULT) [address] [place] [address] 15690 Glucose [Mass/Vol] 109 mg/dL High 70-99 [facility] Comment on above: Performed By: #### M GO, CHM7, IPB, CKB, TRIG, LDO #### [facility] (DEFAULT) [address] [place] [address] 48988 Osmolality [Osmolality] 299 mosm/kg Normal 278-305 [facility] Comment on above: Performed By: #### M GO, CHM7, IPB, CKB, TRIG, LDO #### [facility] (DEFAULT) [address] [place] [address] 84257 Potassium [Moles/Vol] 4.0 mmol/L Normal 3.5-5.0 [facility] Comment on above: Performed By: #### M GO, CHM7, IPB, CKB, TRIG, LDO #### [facility] (DEFAULT) [address] [place] [address] 24999 Sodium [Moles/Vol] 140 mmol/L Normal 135-145 [facility] Comment on above: Performed By: #### M GO, CHM7, IPB, CKB, TRIG, LDO #### [facility] (DEFAULT) [address] [place] [address] 39020 Urea nitrogen [Mass/Vol] 28 mg/dL High 7-25 [facility] Comment on above: Performed By: #### M GO, CHM7, IPB, CKB, TRIG, LDO #### [facility] (DEFAULT) [address] [place] [address] 96119 Urea nitrogen/Creatinine [Mass ratio] 12 mg/mg Normal [facility] Comment on above: Performed By: #### M GO, CHM7, IPB, CKB, TRIG, LDO #### [facility] (DEFAULT) [address] [place] [address] 39764 GLUCOSE POCon 05-08-2024 Glucose [Mass/Vol] 76 mg/dL 70 - 99 mg/dL [facility] Glucose [Mass/Vol] 83 mg/dL 70 - 99 mg/dL [facility] Glucose [Mass/Vol] 102 mg/dL High 70 - 99 mg/dL [facility] Glucose [Mass/Vol] 109 mg/dL High 70 - 99 mg/dL [facility] Glucose [Mass/Vol] 107 mg/dL High 70 - 99 mg/dL [facility] Glucose [Mass/Vol] 113 mg/dL High 70 - 99 mg/dL [facility] Glucose [Mass/Vol] 92 mg/dL 70 - 99 mg/dL [facility] Glucose [Mass/Vol] 104 mg/dL High 70 - 99 mg/dL [facility] Glucose [Mass/Vol] 86 mg/dL 70 - 99 mg/dL [facility] Glucose [Mass/Vol] 91 mg/dL 70 - 99 mg/dL [facility] Glucose [Mass/Vol] 103 mg/dL High 70 - 99 mg/dL [facility] Glucose [Mass/Vol] 89 mg/dL 70 - 99 mg/dL [facility] Glucose [Mass/Vol] 109 mg/dL High 70 - 99 mg/dL [facility] Interpretation and review of laboratory results Abnormal [facility] POC Sample Type CAPBL [facility] IONIZED CALCIUM, WHOLE BLOOD Ordered By: Hakeem Butcher on 05-08-2024 Calcium.ionized (Bld) [Moles/Vol] 3.7 mg/dL Low 4.60 - 5.30 mg/dL [facility] Interpretation and review of laboratory results Abnormal [facility] IONIZED CALCIUM, WHOLE BLOOD on 05-08-2024 ICA 3.70 mg/dL Low 4.60-5.30 [facility] Comment on above: Order Comment: If io nized calcium is less than or equal to 3.0 mg/dL, recheck ionized calcium 2 hours after replacement. Performed By: #### M OMER, CHM7, IPB, CKB, TRIG, LDO #### [facility] (DEFAULT) [address] [place] [address] LOWER RESPIRATORY CULTURE, B ACTERIALon 05-08-2024 Bacteria identified Cx Nom (Unsp spec) Normal [facility] Comment on above: Result Comment: Grow th 4471 Light Growth Common oropharyngeal microbes Performed By: #### M OMER, CHM7, IPB, CKB, TRIG, LDO #### [facility] (DEFAULT) [address] [place] [address] 28030 Microscopic observation Gram stain Nom (Unsp spec) Normal [facility] Comment on above: Result Comment: Neut rophils, Heavy Contaminating bacteria and epithelials present Specimen is of optimum quality Performed By: #### M GO, CHM7, IPB, CKB, TRIG, LDO #### [facility] (DEFAULT) [address] [place] [address] 10252 MAGNESIUMon 05-08-2024 Magnesium [Mass/Vol] 2.3 mg/dL 1.6 - 2 .6 mg/dL [facility] Magnesium [Mass/Vol] 2.3 mg/dL Normal 1.6-2.6 [facility] Comment on above: Performed By: #### G ASVL #### [facility] (DEFAULT) [address] [place] [address] 54317 No Panel Informationon 05-08 Interpretation and review of laboratory results Abnormal [facility] POC Sample Type [facility] POC Sample Type VENO [facility] Interpretation and review of laboratory results Abnormal [facility] POC Sample Type [facility] Interpretation and review of laboratory results Normal [facility] PHOSPHATE, INORGANICon 05-08 Interpretation and review of laboratory results Normal [facility] Phosphate [Mass/Vol] 3.3 mg/dL 2.2 - 4 .6 mg/dL [facility] Phosphorous 3.3 mg/dL Normal 2.2-4.6 [facility] Comment on above: Order Comment: If ph osphate level is less than or equal to 2.0 mg/dL, recheck phosphate 6 hours after replacement. Performed By: #### M GO, CHM7, IPB, CKB, TRIG, LDO #### [facility] (DEFAULT) [address] [place] [address] Phosphate [Mass/Vol] 3.6 mg/dL 2.2 - 4 .6 mg/dL [facility] Phosphorous 3.6 mg/dL Normal 2.2-4.6 [facility] Comment on above: Performed By: #### M OMER, CHM7, IPB, CKB, TRIG, LDO #### [facility] (DEFAULT) [address] [place] [address] 00221 POTASSIUMon 05-08-2024 Interpretation and review of laboratory results Normal [facility] Potassium [Moles/Vol] 3.9 mmol/L 3.5 - 5.0 mmol/L [facility] Potassium [Moles/Vol] 3.9 mmol/L Normal 3.5-5.0 [facility] Comment on above: Order Comment: If po tassium level is less than or equal to 3.0 mmol/L, recheck potassium 4 hours after replacement. Performed By: #### M GO, CHM7, IPB, CKB, TRIG, LDO #### [facility] (DEFAULT) [address] [place] [address] 23577 Portable XR Chest Viewson RADIOLOGY RADIOLOGY [facility] Radiology Study observation (narrative) [facility] URINALYSIS REFLEX TO CULTURE PERFORMABLEon 05-08-2024 Appearance (U) Clear Clear [facility] Bacteria LM Ql (Urine sed) ABSENT ABSENT [facility] Color (U) Yellow Yellow [facility] Epithelial cells.squamous LM Ql (Urine sed) 0-2/hpf 0-2/hpf, 3-5/hpf = 1+ [facility] Glucose Test strip (U) [Mass/Vol] Negative Negative [facility] Interpretation and review of laboratory results Abnormal [facility] Ketones (U) [Mass/Vol] Negative Negative [facility] Leukocyte esterase Test strip Ql (U) Trace Abnormal Negative [facility] Nitrite Ql (U) Negative Negative [facility] pH (U) 5.0 [pH] 5.0 - 7.0 [facility] Protein (U) [Mass/Vol] 30 mg/dL Abnormal Negative [facility] RBC (U) [#/Vol] Moderate Abnormal Negative [facility] RBC LM.HPF (Urine sed) [#/Area] /[HPF] Abnormal [facility] Specific gravity (U) [Rel density] 1.008 1.001 - 1.035 [facility] Urobilinogen (U) [Mass/Vol] 0.2 E.U./dL 0.2 E.U/dL, 1.0 E.U/dL [facility] WBC LM.HPF (Urine sed) [#/Area] 0 - 5 [facility] Appearance (U) Clear Normal Clear [facility] Comment on above: Order Comment: For i ndwelling catheters, specimen collection is acceptable on catheter day 1 and 2 only. ? Performed By: #### M GO, CHM7, IPB, CKB, TRIG, LDO #### [facility] (DEFAULT) [address] [place] [address] 25526 Bacteria ABSENT Normal ABSENT [facility] Comment on above: Order Comment: For i ndwelling catheters, specimen collection is acceptable on catheter day 1 and 2 only. ? Performed By: #### M GO, CHM7, IPB, CKB, TRIG, LDO #### [facility] (DEFAULT) [address] [place] [address] 63573 Blood Urine Moderate Abnormal Negative [facility] Comment on above: Order Comment: For i ndwelling catheters, specimen collection is acceptable on catheter day 1 and 2 only. ? Performed By: #### M GO, CHM7, IPB, CKB, TRIG, LDO #### [facility] (DEFAULT) [address] [place] [address] 58371 Color (U) Yellow Normal Yellow [facility] Comment on above: Order Comment: For i ndwelling catheters, specimen collection is acceptable on catheter day 1 and 2 only. ? Performed By: #### M GO, CHM7, IPB, CKB, TRIG, LDO #### [facility] (DEFAULT) [address] [place] [address] 25712 Glucose Ql (U) Negative Normal Negative [facility] Comment on above: Order Comment: For i ndwelling catheters, specimen collection is acceptable on catheter day 1 and 2 only. ? Performed By: #### M GO, CHM7, IPB, CKB, TRIG, LDO #### [facility] (DEFAULT) [address] [place] [address] 36545 Ketones Ql (U) Negative Normal Negative [facility] Comment on above: Order Comment: For i ndwelling catheters, specimen collection is acceptable on catheter day 1 and 2 only. ? Performed By: #### M GO, CHM7, IPB, CKB, TRIG, LDO #### [facility] (DEFAULT) [address] [place] [address] 85900 Leukocyte esterase Test strip Ql (U) Trace Abnormal Negative [facility] Comment on above: Order Comment: For i ndwelling catheters, specimen collection is acceptable on catheter day 1 and 2 only. ? Performed By: #### M GO, CHM7, IPB, CKB, TRIG, LDO #### [facility] (DEFAULT) [address] [place] [address] 12469 Nitrites Urine Negative Normal Negative [facility] Comment on above: Order Comment: For i ndwelling catheters, specimen collection is acceptable on catheter day 1 and 2 only. ? Performed By: #### M GO, CHM7, IPB, CKB, TRIG, LDO #### [facility] (DEFAULT) [address] [place] [address] 97845 pH (U) 5.0 [pH] Normal 5.0-7.0 [facility] Comment on above: Order Comment: For i ndwelling catheters, specimen collection is acceptable on catheter day 1 and 2 only. ? Performed By: #### M GO, CHM7, IPB, CKB, TRIG, LDO #### [facility] (DEFAULT) [address] [place] [address] 22163 Protein Urine 30 mg/dL Abnormal Negative [facility] Comment on above: Order Comment: For i ndwelling catheters, specimen collection is acceptable on catheter day 1 and 2 only. ? Performed By: #### M GO, CHM7, IPB, CKB, TRIG, LDO #### [facility] (DEFAULT) [address] [place] [address] 01514 RBC LM.HPF (Urine sed) [#/Area] /[HPF] Abnormal 0-2 [facility] Comment on above: Order Comment: For i ndwelling catheters, specimen collection is acceptable on catheter day 1 and 2 only. ? Performed By: #### M GO, CHM7, IPB, CKB, TRIG, LDO #### [facility] (DEFAULT) [address] [place] [address] 35902 Specific [place] Urine 1.008 Normal 1.001 -1.03 5 [facility] Comment on above: Order Comment: For i ndwelling catheters, specimen collection is acceptable on catheter day 1 and 2 only. ? Performed By: #### M GO, CHM7, IPB, CKB, TRIG, LDO #### [facility] (DEFAULT) [address] [place] [address] 97042 Squamous/Epithelial Cells 0-2/hpf Normal 0-2/hpf, 3-5/hpf = 1+ [facility] Comment on above: Order Comment: For i ndwelling catheters, specimen collection is acceptable on catheter day 1 and 2 only. ? Performed By: #### M GO, CHM7, IPB, CKB, TRIG, LDO #### [facility] (DEFAULT) [address] [place] [address] 68279 Urobilinogen Urine 0.2 E.U./dL Normal 0.2 E.U/dL, 1.0 E.U/dL [facility] Comment on above: Order Comment: For i ndwelling catheters, specimen collection is acceptable on catheter day 1 and 2 only. ? Performed By: #### M GO, CHM7, IPB, CKB, TRIG, LDO #### [facility] (DEFAULT) [address] [place] [address] 18425 WBC Urine 0 - 5 Normal 0 - 5 [facility] Comment on above: Order Comment: For i ndwelling catheters, specimen collection is acceptable on catheter day 1 and 2 only. ? Performed By: #### M GO, CHM7, IPB, CKB, TRIG, LDO #### [facility] (DEFAULT) [address] [place] [address] 87541 VENOUS BLOOD GASon 5 Base excess Calc (Bld) [Moles/Vol] -1.9000 mmol/L -3.0 - 3.0 mmol/L [facility] CO2 (Bld) [Partial pressure] 43 mm[Hg] [facility] HCO3 (Bld) [Moles/Vol] 24 mmol/L 22 - 29 mmol/L [facility] Oxygen (Bld) [Partial pressure] 40 mm[Hg] mm Hg [facility] Oxygen saturation in Blood 71 % 70 - 80 % [facility] pH (Bld) 7.35 [pH] 7.32 - 7.43 [facility] Specimen source Nom (Unsp spec) Venous [facility] Base Excess -1.9 mmol/L Normal -3.0-3.0 [facility] Comment on above: Performed By: #### M GO, CHM7, IPB, CKB, TRIG, LDO #### [facility] (DEFAULT) [address] [place] [address] 30084 HCO3 (Bld) [Moles/Vol] 24 mmol/L Normal 22-29 [facility] Comment on above: Performed By: #### M GO, CHM7, IPB, CKB, TRIG, LDO #### [facility] (DEFAULT) [address] [place] [address] 58169 Oxygen saturation in Blood 71 % Normal 70-80 [facility] Comment on above: Performed By: #### M GO, CHM7, IPB, CKB, TRIG, LDO #### [facility] (DEFAULT) [address] [place] [address] 34290 pCO2, Venous 43 mm Hg Normal 36-52 [facility] Comment on above: Performed By: #### M GO, CHM7, IPB, CKB, TRIG, LDO #### [facility] (DEFAULT) [address] [place] [address] 04169 pH, Venous 7.35 Normal 7.32-7.43 [facility] Comment on above: Performed By: #### M GO, CHM7, IPB, CKB, TRIG, LDO #### [facility] (DEFAULT) [address] [place] [address] 05795 pO2, Venous 40 mm Hg Normal [facility] Comment on above: Result Comment: Veno us pO2 is not recommended for the evaluation of oxygen status, clinical correlation is recommended. Performed By: #### M GO, CHM7, IPB, CKB, TRIG, LDO #### [facility] (DEFAULT) [address] [place] [address] 37746 Specimen type Nom (Spec) Venous Normal [facility] Comment on above: Performed By: #### M GO, CHM7, IPB, CKB, TRIG, LDO #### [facility] (DEFAULT) [address] [place] [address] 03855 XR CHEST 1 VIEW PORTABLEon 0 05-08-2024 XR CHEST 1 VIEW PORTABLE EXAM: XR CHEST 1 VIEW PORTABLE, 05/08/2024 09:25 AM COMPARISON: May 07, 2024 CLINICAL INDICATIONS: C/f new pneumonia given coughing, fever and increased oxygen requirement RELEVANT CLINICAL HISTORY: FINDINGS: (Adequate technique) The endotracheal tube is 2.7 cm above the lisa. NG tube terminates. The diaphragm, outside the [id number]. The left CVC is removed. Prosthetic right [...] seen with early edema or bronchitis. Normal [facility] Bacteria identified Cx Nom ( Body fld)Ordered By: Jacki Lopez on 05-07-2024 Bacteria identified Cx Nom (Unsp spec) NO GROWTH DAY 2 OF [facility] Microscopic observation Other stain Nom (Unsp spec) Cytocentrifuge preparation [facility] Microscopic observation Other stain Nom (Unsp spec) Neutrophils, Light [facility] Microscopic observation Other stain Nom (Unsp spec) Mononuclear cells present [facility] Microscopic observation Other stain Nom (Unsp spec) Red Blood Cells Present [facility] Microscopic observation Other stain Nom (Unsp spec) [facility] Bacteria identified Respirat ory culture Nom (Unsp spec)Ordered By: Isadora Byrne on 05-07-2024 Bacteria identified Cx Nom (Unsp spec) Growth [facility] Bacteria identified Cx Nom (Unsp spec) Light Growth Common oropharyngeal microbes [facility] Microscopic observation Other stain Nom (Unsp spec) [facility], [facility] Other stain Nom (Unsp spec) Contaminating bacteria and epithelials present [facility] Microscopic observation Other stain Nom (Unsp spec) Specimen is of optimum quality [facility] CBC,PLATELETSon 05-07-2024 Erythrocyte distribution width (RBC) [Ratio] 18.5 % High 10.8 - 14.9 % [facility] Hematocrit (Bld) [Volume fraction] 24 % Low 34.9 - 44.3 % [facility] Hemoglobin (Bld) [Mass/Vol] 7.5 g/dL Low 11.4 - 15.2 g/dL [facility] Interpretation and review of laboratory results Abnormal [facility] MCH (RBC) [Entitic mass] 31.5 pg 25.9 - 33.9 pg [facility] MCHC (RBC) [Mass/Vol] 31.3 g/dL Low 31.4 - 35.9 g/dL [facility] MCV (RBC) [Entitic vol] 100.8 fL High 79.6 - 97.7 fL [facility] Platelet mean volume (Bld) [Entitic vol] 11.8 fL 8.5 - 12.2 fL [facility] Platelets (Bld) [#/Vol] 73 10*3/uL Low 150 - 393 K/uL [facility] RBC (Bld) [#/Vol] 2.38 10*6/uL Low [facility] WBC (Bld) [#/Vol] 16.89 10*3/uL High 3.99 - 11.19 K/uL [facility] Hematocrit (Bld) [Volume fraction] 24.0 % Low 34.9-44.3 [facility] Comment on above: Performed By: #### F CRAG #### [facility] (DEFAULT) [address] [address] Hemoglobin (Bld) [Mass/Vol] 7.5 g/dL Low 11.4-15.2 [facility] Comment on above: Performed By: #### F CRAG #### [facility] (DEFAULT) [address] [place] [address] 87705 MCV (RBC) [Entitic vol] 100.8 fL High 79.6-97.7 [facility] Comment on above: Performed By: #### F CRAG #### [facility] (DEFAULT) [address] [address] Mean Cell Hgb 31.5 pg Normal 25.9-33.9 [facility] Comment on above: Performed By: #### F CRAG #### [facility] (DEFAULT) [address] [place] [address] 40518 Mean Cell Hgb Conc 31.3 g/dL Low 31.4-35.9 [facility] Comment on above: Performed By: #### F CRAG #### [facility] (DEFAULT) [address] [place] [address] 58760 Platelet mean volume (Bld) [Entitic vol] 11.8 fL Normal 8.5-12.2 [facility] Comment on above: Performed By: #### F CRAG #### [facility] (DEFAULT) [address] [place] [address] 67180 Platelets (Bld) [#/Vol] 73 10*3/uL Low 150-393 [facility] Comment on above: Performed By: #### F CRAG #### [facility] (DEFAULT) [address] [place] [address] 43163 RBC (Bld) [#/Vol] 2.38 10*6/uL Low 3.91-5.04 [facility] Comment on above: Performed By: #### F CRAG #### [facility] (DEFAULT) [address] [place] [address] 69965 RBC Distribution 18.5 % High 10.8-14.9 [facility] Comment on above: Performed By: #### F CRAG #### [facility] (DEFAULT) [address] [place] [address] 32847 WBC (Bld) [#/Vol] 16.89 10*3/uL High 3.99-11.19 [facility] Comment on above: Performed By: #### F CRAG #### [facility] (DEFAULT) [address] [place] [address] 73060 Erythrocyte distribution width (RBC) [Ratio] 16.8 % High 10.8 - 14.9 % [facility] Hematocrit (Bld) [Volume fraction] 19.6 % Low 34.9 - 44.3 % [facility] Hemoglobin (Bld) [Mass/Vol] 5.8 g/dL Critically low 11.4 - 15.2 g/dL [facility] Interpretation and review of laboratory results Abnormal [facility] MCH (RBC) [Entitic mass] 31.7 pg 25.9 - 33.9 pg [facility] MCHC (RBC) [Mass/Vol] 29.6 g/dL Low 31.4 - 35.9 g/dL [facility] MCV (RBC) [Entitic vol] 107.1 fL High 79.6 - 97.7 fL [facility] Platelet mean volume (Bld) [Entitic vol] [facility] Platelets (Bld) [#/Vol] 60 10*3/uL Low 150 - 393 K/uL [facility] RBC (Bld) [#/Vol] 1.83 10*6/uL Low [facility] WBC (Bld) [#/Vol] 14.66 10*3/uL High 3.99 - 11.19 K/uL [facility] Hematocrit (Bld) [Volume fraction] 19.6 % Low 34.9-44.3 [facility] Comment on above: Performed By: #### M OMER, CHM7, IPB, CKB, TRIG, LDO #### [facility] (DEFAULT) [address] [address] Hemoglobin (Bld) [Mass/Vol] 5.8 g/dL Critically low 11.4-15.2 [facility] Comment on above: Result Comment: This result has been called to Beto Richard RN by bala on 05/07/2024 02:38:23, and has been read back. Performed By: #### M OMER, CHM7, IPB, CKB, TRIG, LDO #### [facility] (DEFAULT) [address] [address] MCV (RBC) [Entitic vol] 107.1 fL High 79.6-97.7 [facility] Comment on above: Performed By: #### M OMER, CHM7, IPB, CKB, TRIG, LDO #### [facility] (DEFAULT) [address] [place] [address] 44555 Mean Cell Hgb 31.7 pg Normal 25.9-33.9 [facility] Comment on above: Performed By: #### M GO, CHM7, IPB, CKB, TRIG, LDO #### [facility] (DEFAULT) [address] [place] [address] 95798 Mean Cell Hgb Conc 29.6 g/dL Low 31.4-35.9 [facility] Comment on above: Performed By: #### M GO, CHM7, IPB, CKB, TRIG, LDO #### [facility] (DEFAULT) [address] [place] [address] 63501 Mean Platelet Volume Normal [facility] Comment on above: Result Comment: Not measured Performed By: #### M GO, CHM7, IPB, CKB, TRIG, LDO #### [facility] (DEFAULT) [address] [place] [address] 37341 Platelets (Bld) [#/Vol] 60 10*3/uL Low 150-393 [facility] Comment on above: Performed By: #### M GO, CHM7, IPB, CKB, TRIG, LDO #### [facility] (DEFAULT) [address] [place] [address] 39254 RBC (Bld) [#/Vol] 1.83 10*6/uL Low 3.91-5.04 [facility] Comment on above: Performed By: #### M GO, CHM7, IPB, CKB, TRIG, LDO #### [facility] (DEFAULT) [address] [place] [address] 09238 RBC Distribution 16.8 % High 10.8-14.9 [facility] Comment on above: Performed By: #### M GO, CHM7, IPB, CKB, TRIG, LDO #### [facility] (DEFAULT) [address] [place] [address] 38648 WBC (Bld) [#/Vol] 14.66 10*3/uL High 3.99-11.19 [facility] Comment on above: Performed By: #### M GO, CHM7, IPB, CKB, TRIG, LDO #### [facility] (DEFAULT) [address] [place] [address] CHEM 7 (LYTES,BUN,CREA,GLUC) on 05-07-2024 Anion gap [Moles/Vol] 11 mmol/L 7 - 17 mmol/L [facility] Chloride [Moles/Vol] 106 mmol/L 98 - 10 8 mmol/L [facility] CO2 [Moles/Vol] 24 mmol/L 21 - 31 mmol/L [facility] Creatinine [Mass/Vol] 2.11 mg/dL High 0.50 - 1.20 mg/dL [facility] eGFR, CKD-EPI, Female 23 Low - PINF [facility] Glucose [Mass/Vol] 88 mg/dL 70 - 99 mg/dL [facility] Osmolality Calc [Osmolality] 290 [facility] Potassium [Moles/Vol] 3.6 mmol/L 3.5 - 5.0 mmol/L [facility] Sodium [Moles/Vol] 137 mmol/L 135 - 145 mmol/L [facility] Urea nitrogen [Mass/Vol] 24 mg/dL 7 - 25 mg/dL [facility] Urea nitrogen/Creatinine [Mass ratio] 11 mg/mg [facility] Anion gap [Moles/Vol] 11 mmol/L Normal 7-[address] [facility] Comment on above: Performed By: #### M GO, CHM7, IPB, CKB, TRIG, LDO #### [facility] (DEFAULT) [address] [place] [address] Chloride [Moles/Vol] 106 mmol/L Normal 98-108 [facility] Comment on above: Performed By: #### M GO, CHM7, IPB, CKB, TRIG, LDO #### [facility] (DEFAULT) [address] [place] [address] 00860 CO2 [Moles/Vol] 24 mmol/L Normal 21-31 [facility] Comment on above: Performed By: #### M GO, CHM7, IPB, CKB, TRIG, LDO #### [facility] (DEFAULT) [address] [place] [address] 33206 Creatinine [Mass/Vol] 2.11 mg/dL High 0.50-1.20 [facility] Comment on above: Performed By: #### M GO, CHM7, IPB, CKB, TRIG, LDO #### [facility] (DEFAULT) [address] [place] [address] 13581 GFR/1.73 sq M.predicted among non-blacks MDRD (S/P/Bld) [Vol rate/Area] 23 mL/min/{1.73_m2} Low >=60 [facility] Comment on above: Result Comment: Repo rted eGFR is based on the CKD-EPI 2020 equation using creatinine, age, and sex. Performed By: #### M GO, CHM7, IPB, CKB, TRIG, LDO #### [facility] (DEFAULT) [address] [place] [address] 91720 Glucose [Mass/Vol] 88 mg/dL Normal 70-99 [facility] Comment on above: Performed By: #### M GO, CHM7, IPB, CKB, TRIG, LDO #### [facility] (DEFAULT) [address] [place] [address] 87003 Osmolality [Osmolality] 290 mosm/kg Normal 278-305 [facility] Comment on above: Performed By: #### M GO, CHM7, IPB, CKB, TRIG, LDO #### [facility] (DEFAULT) [address] [place] [address] 57616 Potassium [Moles/Vol] 3.6 mmol/L Normal 3.5-5.0 [facility] Comment on above: Performed By: #### M GO, CHM7, IPB, CKB, TRIG, LDO #### [facility] (DEFAULT) [address] [place] [address] 83003 Sodium [Moles/Vol] 137 mmol/L Normal 135-145 [facility] Comment on above: Performed By: #### M GO, CHM7, IPB, CKB, TRIG, LDO #### [facility] (DEFAULT) [address] [place] [address] 06331 Urea nitrogen [Mass/Vol] 24 mg/dL Normal 7-25 [facility] Comment on above: Performed By: #### M GO, CHM7, IPB, CKB, TRIG, LDO #### [facility] (DEFAULT) [address] [place] [address] 93246 Urea nitrogen/Creatinine [Mass ratio] 11 mg/mg Normal [facility] Comment on above: Performed By: #### M GO, CHM7, IPB, CKB, TRIG, LDO #### [facility] (DEFAULT) [address] [place] [address] 84693 CKon 05-07-2024 CK [Catalytic activity/Vol] 57 U/L 30 - 184 U/L [facility] CK [Catalytic activity/Vol] 57 U/L Normal 30-184 [facility] Comment on above: Order Comment: While on Propofol. Performed By: #### M GO, CHM7, IPB, CKB, TRIG, LDO #### [facility] (DEFAULT) [address] [place] [address] 59730 CONTINUOUS CARDIAC MONITORIN G STRIPOrdered By: Unassigned Pacs on 05-07-2024 [facility] Work Phone: FIBRINOGEN, CLOTTABLEon 02-0 Fibrinogen Coag (PPP) [Mass/Vol] 426 mg/dL High 220 - 410 mg/dL [facility] Interpretation and review of laboratory results Abnormal [facility] Fibrinogen-Clottable 426 mg/dL High 220-410 [facility] Comment on above: Order Comment: Fibr [...] caution. Performed By: #### G ASVL #### [facility] (DEFAULT) [address] [address] HAPTOGLOBINon 05-07-2024 Haptoglobin [Mass/Vol] 306 mg/dL High 44 - 215 mg/dL [facility] Interpretation and review of laboratory results Abnormal [facility] HEMOGLOBIN & HEMATOCRITon Hematocrit (Bld) [Volume fraction] 27.3 % Low 34.9 - 44.3 % [facility] Hemoglobin (Bld) [Mass/Vol] 8.5 g/dL Low 11.4 - 15.2 g/dL [facility] Interpretation and review of laboratory results Abnormal [facility] Hematocrit (Bld) [Volume fraction] 27.3 % Low 34.9-44.3 [facility] Comment on above: Performed By: #### M GO, CHM7, IPB, CKB, TRIG, LDO #### [facility] (DEFAULT) [address] [place] [address] 10768 Hemoglobin (Bld) [Mass/Vol] 8.5 g/dL Low 11.4-15.2 [facility] Comment on above: Performed By: #### M GO, CHM7, IPB, CKB, TRIG, LDO #### [facility] (DEFAULT) [address] [place] [address] 84208 Hematocrit (Bld) [Volume fraction] 20 % Low 34.9 - 44.3 % [facility] Hemoglobin (Bld) [Mass/Vol] 6.1 g/dL Critically low 11.4 - 15.2 g/dL [facility] Interpretation and review of laboratory results Abnormal [facility] Hematocrit (Bld) [Volume fraction] 20.0 % Low 34.9-44.3 [facility] Comment on above: Order Comment: Pleas e obtain one hour after completing pRBC infusion Performed By: #### M ROXY TELLO, IPB, CKB, TRIG, LDO #### [facility] (DEFAULT) [address] [place] [address] 27624 Hemoglobin (Bld) [Mass/Vol] 6.1 g/dL Critically low 11.4-15.2 [facility] Comment on above: Order Comment: Pleas e obtain one hour after completing pRBC infusion Result Comment: This result has been called to Beto Richard RN by bala on 05/07/2024 06:56:52, and has been read back. Performed By: #### ROXY ROA, IPB, CKB, TRIG, LDO #### [facility] (DEFAULT) [address] [place] [address] 34694 IONIZED CALCIUM, WHOLE BLOOD Ordered By: Truong Allen on 05-07-2024 Calcium.ionized (Bld) [Moles/Vol] 4.14 mg/dL Low 4.60 - 5.30 mg/dL [facility] Interpretation and review of laboratory results Abnormal [facility] IONIZED CALCIUM, WHOLE BLOOD on 05-07-2024 ICA 4.14 mg/dL Low 4.60-5.30 [facility] Comment on above: Order Comment: If io nized calcium is less than or equal to 3.0 mg/dL, recheck ionized calcium 2 hours after replacement. Performed By: #### G ASVL #### [facility] (DEFAULT) [address] [place] [address] 05771 ICA 4.32 mg/dL Low 4.60-5.30 [facility] Comment on above: Performed By: #### F DIONISIOG #### [facility] (DEFAULT) [address] [place] [address] 45966 IONIZED CALCIUM, WHOLE BLOOD Ordered By: Keyana Kumar on 05-07-2024 Calcium.ionized (Bld) [Moles/Vol] 4.32 mg/dL Low 4.60 - 5.30 mg/dL [facility] Interpretation and review of laboratory results Abnormal [facility] LACTATE DEHYDROGENASEon LDH Lactate to pyruvate reaction [Catalytic activity/Vol] 265 U/L High 100 - 190 U/L [facility] LD Total 265 U/L High 100-190 [facility] Comment on above: Performed By: #### M GO, CHM7, IPB, CKB, TRIG, LDO #### [facility] (DEFAULT) [address] [place] [address] 83589 MAGNESIUMon 05-07-2024 Magnesium [Mass/Vol] 1.7 mg/dL 1.6 - 2 .6 mg/dL [facility] Magnesium [Mass/Vol] 1.7 mg/dL Normal 1.6-2.6 [facility] Comment on above: Performed By: #### M GO, CHM7, IPB, CKB, TRIG, LDO #### [facility] (DEFAULT) [address] [place] [address] 08155 Magnesium [Mass/Vol] 1.8 mg/dL 1.6 - 2 .6 mg/dL [facility] Magnesium [Mass/Vol] 1.8 mg/dL Normal 1.6-2.6 [facility] Comment on above: Performed By: #### M GO, CHM7, IPB, CKB, TRIG, LDO #### [facility] (DEFAULT) [address] [place] [address] 17893 MR Brain WO and W contrast I Von 05-07-2024 RADIOLOGY RADIOLOGY [facility] MR Brain WO and W contrast I VOrdered By: Michael De León on 05-07-2024 [facility] Work Phone: MRI BRAIN WITH AND WITHOUT [...] or potentially related to postictal changes. Normal [facility] No Panel Informationon 05-07 Interpretation and review of laboratory results Normal [facility] Interpretation and review of laboratory results Abnormal [facility] Interpretation and review of laboratory results Normal [facility] Interpretation and review of laboratory results Abnormal [facility] PHOSPHATE, INORGANICon 05-07 Interpretation and review of laboratory results Normal [facility] Phosphate [Mass/Vol] 3.6 mg/dL 2.2 - 4 .6 mg/dL [facility] Phosphorous 3.6 mg/dL Normal 2.2-4.6 [facility] Comment on above: Performed By: #### M GO, CHM7, IPB, CKB, TRIG, LDO #### [facility] (DEFAULT) [address] [place] [address] 21619 Phosphate [Mass/Vol] 3.7 mg/dL 2.2 - 4 .6 mg/dL [facility] Phosphorous 3.7 mg/dL Normal 2.2-4.6 [facility] Comment on above: Performed By: #### M GO, CHM7, IPB, CKB, TRIG, LDO #### [facility] (DEFAULT) [address] [place] [address] 65280 Phosphate [Mass/Vol] 3.2 mg/dL 2.2 - 4 .6 mg/dL [facility] Phosphorous 3.2 mg/dL Normal 2.2-4.6 [facility] Comment on above: Performed By: #### M GO, CHM7, IPB, CKB, TRIG, LDO #### [facility] (DEFAULT) [address] [place] [address] 76647 PLATELET COUNTon 05-07-2024 Platelet mean volume (Bld) [Entitic vol] [facility] Platelets (Bld) [#/Vol] 63 10*3/uL Low 150 - 393 K/uL [facility] Mean Platelet Volume Normal [facility] Comment on above: Result Comment: Not measured Performed By: #### M GO, CHM7, IPB, CKB, TRIG, LDO #### [facility] (DEFAULT) [address] [place] [address] 88021 Platelets (Bld) [#/Vol] 63 10*3/uL Low 150-393 [facility] Comment on above: Performed By: #### M ROXY TELLO, IPB, CKB, TRIG, LDO #### [facility] (DEFAULT) [address] [place] [address] POTASSIUMon 05-07-2024 Potassium [Moles/Vol] 3.9 mmol/L 3.5 - 5.0 mmol/L [facility] Potassium [Moles/Vol] 3.9 mmol/L Normal 3.5-5.0 [facility] Comment on above: Order Comment: If po tassium level is less than or equal to 3.0 mmol/L, recheck potassium 4 hours after replacement. Performed By: #### M CHEMO TELLO7, IPB, CKB, TRIG, LDO #### [facility] (DEFAULT) [address] [place] [address] PREPARE TO TRANSFUSE RED BLO OD CELLSon 05-07-2024 [facility] BLOOD COMPONENT TYPE Red Cells, [facility]uk[facility]duced [facility]IR[facility] Product ABO/RH(D) ABPOS [facility] Product ABO/RH(D) NUMBER 8400 [facility] PRODUCT CODE [id number] [facility] UNIT NUMBER [id number] [facility] UNIT STATUS transfused [facility] ABO/RH(D) TYPE ABPOS [facility] BLOOD COMPONENT TYPE Red Cells, Leukoreduced [facility] EXPIRATION DATE [facility] 8400 [facility] PRODUCT CODE [id number] [facility] UNIT NUMBER [id number] [facility]R,PTTon 05-07-2024 aPTT Coag (PPP) [Time] 35.[address] [facility] INR Coag (Bld) [Relative time] 1.2 {INR} High 0.9 - 1.1 [facility] Interpretation and review of laboratory results Abnormal [facility] PT Coag (PPP) [Time] 14.8 s High [facility] aPTT Coag (Bld) [Time] 35.2 s High 24.0-34.3 [facility] Comment on above: Performed By: #### G ASVL #### [facility] (DEFAULT) [address] [place] [address] 08224 INR Coag (PPP) [Relative time] 1.2 {INR} High 0.9-1.1 [facility] Comment on above: Performed By: #### G ASVL #### [facility] (DEFAULT) [address] [place] [address] 74666 PT Coag (PPP) [Time] 14.8 s High 11.9-14.2 [facility] Comment on above: Performed By: #### G ASVL #### [facility] (DEFAULT) [address] [place] [address] 34555 Portable XR Chest Viewson RADIOLOGY RADIOLOGY [facility] Radiology Study observation (narrative) [facility] Portable XR Chest ViewsOrder ed By: Josy Arrington on 05-07-2024 [facility] Work Phone: RETICULOCYTESon 05-07-2024 Reticulocytes (Bld) [#/Vol] 0.0735 10*3/uL [facility] Reticulocytes/100 RBC (Bld) 3.75 % High 0.74 - 2.54 % [facility] Retic Absolute 0.0735 M/uL Normal 0.0324-0.1 142 [facility] Comment on above: Performed By: #### M GO, CHM7, IPB, CKB, TRIG, LDO #### [facility] (DEFAULT) [address] [place] [address] 62820 Retic Count 3.75 % High 0.74-2.54 [facility] Comment on above: Performed By: #### M GO, CHM7, IPB, CKB, TRIG, LDO #### [facility] (DEFAULT) [address] [place] [address] 39272 SCHISTOCYTESon 05-07-2024 Schistocytes LM Ql (Bld) Slide reviewed, no schistocytes seen [facility] BKR SCHISTOCYTES PATH Slide reviewed, no schistocytes seen Normal [facility] Comment on above: Performed By: #### M GO, CHM7, IPB, CKB, TRIG, LDO #### [facility] (DEFAULT) [address] [place] [address] 72584 TRIGLYCERIDEon 05-07-2024 Triglyceride [Mass/Vol] 152 mg/dL High NINF - 150 mg/dL [facility] Triglyceride [Mass/Vol] 152 mg/dL High <150 [facility] Comment on above: Order Comment: While on Propofol. Result Comment: [<15 0 mg/dL: Desirable] [150-199 mg/dL: Borderline] [200-499 mg/dL: High] [>500 mg/dL: Very High] Performed By: #### M GO, CHM7, IPB, CKB, TRIG, LDO #### [facility] (DEFAULT) [address] [place] [address] 78707 XR ABDOMEN 1 VIEW PORTABLEon 05-07-2024 XR [...] ileus without residual dilated small bowel. Normal [facility] XR Abdomen Single viewon RADIOLOGY RADIOLOGY [facility] Radiology Study observation (narrative) [facility] XR Abdomen Single viewOrdere d By: Trever Prather on 05-07-2024 [facility] XR CHEST 1 VIEW PORTABLEon 0 05-07-2024 [...] pneumomediastinum or subcutaneous gas on radiograph. Normal [facility] ANTI XA HEPARIN (UNFRACTIONA EVANS)Ordered By: Alice Garvin on 05-06-2024 Heparin anti Xa Qn (Nonbiological fluid) Low [facility] Interpretation and review of laboratory results Abnormal [facility] ANTI XA HEPARIN (UNFRACTIONA EVANS)on 05-06-2024 Anti Xa Heparin (Unfractionated) <0.10 Low 0.30-0.70 [facility] Comment on above: Performed By: #### T YPEC #### [facility] (DEFAULT) [address] [place] [address] BASIC METABOLIC PANELon 04-08 Anion gap [Moles/Vol] 14 mmol/L 7 - 17 mmol/L [facility] Calcium [Mass/Vol] 7.4 mg/dL Low 8.6 - 10. 5 mg/dL [facility] Chloride [Moles/Vol] 104 mmol/L 98 - 10 8 mmol/L [facility] CO2 [Moles/Vol] 24 mmol/L 21 - 31 mmol/L [facility] Creatinine [Mass/Vol] 2.5 mg/dL High 0.50 - 1.20 mg/dL [facility] eGFR, CKD-EPI, Female 19 Low - PINF [facility] Glucose [Mass/Vol] 94 mg/dL 70 - 99 mg/dL [facility] Interpretation and review of laboratory results Abnormal [facility] Osmolality Calc [Osmolality] 294 [facility] Potassium [Moles/Vol] 4.1 mmol/L 3.5 - 5.0 mmol/L [facility] Sodium [Moles/Vol] 138 mmol/L 135 - 145 mmol/L [facility] Urea nitrogen [Mass/Vol] 28 mg/dL High 7 - 25 mg/dL [facility] Urea nitrogen/Creatinine [Mass ratio] 11 mg/mg [facility] Anion gap [Moles/Vol] 14 mmol/L Normal 7-17 [facility] Comment on above: Performed By: #### M OMER, CHM7, IPB, CKB, TRIG, LDO #### [facility] (DEFAULT) [address] [place] [address] 68722 Calcium [Mass/Vol] 7.4 mg/dL Low 8.6-10.5 [facility] Comment on above: Performed By: #### M GO, CHM7, IPB, CKB, TRIG, LDO #### [facility] (DEFAULT) [address] [place] [address] Chloride [Moles/Vol] 104 mmol/L Normal 98-108 [facility] Comment on above: Performed By: #### M GO, CHM7, IPB, CKB, TRIG, LDO #### [facility] (DEFAULT) [address] [place] [address] CO2 [Moles/Vol] 24 mmol/L Normal 21-31 [facility] Comment on above: Performed By: #### M GO, CHM7, IPB, CKB, TRIG, LDO #### [facility] (DEFAULT) [address] [place] [address] 55266 Creatinine [Mass/Vol] 2.50 mg/dL High 0.50-1.20 [facility] Comment on above: Performed By: #### M GO, CHM7, IPB, CKB, TRIG, LDO #### [facility] (DEFAULT) [address] [place] [address] 85241 GFR/1.73 sq M.predicted among non-blacks MDRD (S/P/Bld) [Vol rate/Area] 19 mL/min/{1.73_m2} Low >=60 [facility] Comment on above: Result Comment: Repo rted eGFR is based on the CKD-EPI 2020 equation using creatinine, age, and sex. Performed By: #### M GO, CHM7, IPB, CKB, TRIG, LDO #### [facility] (DEFAULT) [address] [place] [address] 15096 Glucose [Mass/Vol] 94 mg/dL Normal 70-99 [facility] Comment on above: Performed By: #### M GO, CHM7, IPB, CKB, TRIG, LDO #### [facility] (DEFAULT) [address] [place] [address] 62400 Osmolality [Osmolality] 294 mosm/kg Normal 278-305 [facility] Comment on above: Performed By: #### M GO, CHM7, IPB, CKB, TRIG, LDO #### [facility] (DEFAULT) [address] [place] [address] 55432 Potassium [Moles/Vol] 4.1 mmol/L Normal 3.5-5.0 [facility] Comment on above: Performed By: #### M GO, CHM7, IPB, CKB, TRIG, LDO #### [facility] (DEFAULT) [address] [place] [address] Sodium [Moles/Vol] 138 mmol/L Normal 135-145 [facility] Comment on above: Performed By: #### M GO, CHM7, IPB, CKB, TRIG, LDO #### [facility] (DEFAULT) [address] [place] [address] 09324 Urea nitrogen [Mass/Vol] 28 mg/dL High 7-25 [facility] Comment on above: Performed By: #### M GO, CHM7, IPB, CKB, TRIG, LDO #### [facility] (DEFAULT) [address] [place] [address] Urea nitrogen/Creatinine [Mass ratio] 11 mg/mg Normal [facility] Comment on above: Performed By: #### M GO, CHM7, IPB, CKB, TRIG, LDO #### [facility] (DEFAULT) [address] [place] [address] 88983 CBC W/Diff, Automatedon 04-08 PATH REV Reviewed Normal [facility] Comment on above: Result Comment: THE PERIPHERAL SMEAR SHOWS A NORMOCHROMIC NORMOCYTIC ANEMIA.PLATELETS ARE SLIGHTLY LOW IN NUMBER AND NORMAL IN FORM.THERE IS A LEUKOCYTOSIS WITH INCREASED NEUOTROPHILS. THIS ISOFTEN DUE TO A REACTIVE PROCESS.Mehdi Miller M.D. 05/06/24 AMENDED REPORT 05/06/24 1000 PATH REV previously reported as: Reviewed Performed By: #### L 501.5200, L100.0100, L501.2300, L500.2500 ####[facility] [address] [place], [address] CBC,PLATELETSOrdered By: All león Himrod on 05-06-2024 RBC (Bld) [#/Vol] 2.21 10*6/uL Low [facility] CBC,PLATELETSon 05-06-2024 Hematocrit (Bld) [Volume fraction] 22.9 % Low 34.9-44.3 [facility] Comment on above: Performed By: #### M GO, CHM7, IPB, CKB, TRIG, LDO #### [facility] (DEFAULT) [address] [place] [address] 11721 Hemoglobin (Bld) [Mass/Vol] 7.1 g/dL Low 11.4-15.2 [facility] Comment on above: Performed By: #### M GO, CHM7, IPB, CKB, TRIG, LDO #### [facility] (DEFAULT) [address] [place] [address] 45450 MCV (RBC) [Entitic vol] 103.6 fL High 79.6-97.7 [facility] Comment on above: Result Comment: Resu lts inconsistent with previous results Performed By: #### M GO, CHM7, IPB, CKB, TRIG, LDO #### [facility] (DEFAULT) [address] [place] [address] 55134 Mean Cell Hgb 32.1 pg Normal 25.9-33.9 [facility] Comment on above: Performed By: #### M GO, CHM7, IPB, CKB, TRIG, LDO #### [facility] (DEFAULT) [address] [place] [address] 18540 Mean Cell Hgb Conc 31.0 g/dL Low 31.4-35.9 [facility] Comment on above: Performed By: #### M GO, CHM7, IPB, CKB, TRIG, LDO #### [facility] (DEFAULT) [address] [place] [address] 49995 Mean Platelet Volume Normal [facility] Comment on above: Result Comment: Not measured Performed By: #### M GO, CHM7, IPB, CKB, TRIG, LDO #### [facility] (DEFAULT) [address] [place] [address] 90911 Platelets (Bld) [#/Vol] 90 10*3/uL Low 150-393 [facility] Comment on above: Result Comment: Plat elet clumps noted on smear. Reported instrument value is acceptable This is an appended report. These results have been appended to a previously preliminary verified report. Performed By: #### M GO, CHM7, IPB, CKB, TRIG, LDO #### [facility] (DEFAULT) [address] [place] [address] 92703 RBC (Bld) [#/Vol] 2.21 10*6/uL Low 3.91-5.04 [facility] Comment on above: Performed By: #### M GO, CHM7, IPB, CKB, TRIG, LDO #### [facility] (DEFAULT) [address] [place] [address] 80005 RBC Distribution 16.9 % High 10.8-14.9 [facility] Comment on above: Performed By: #### M GO, CHM7, IPB, CKB, TRIG, LDO #### [facility] (DEFAULT) [address] [place] [address] 59598 WBC (Bld) [#/Vol] 19.33 10*3/uL High 3.99-11.19 [facility] Comment on above: Performed By: #### M GO, CHM7, IPB, CKB, TRIG, LDO #### [facility] (DEFAULT) [address] [place] [address] 62030 CHEM 7 (LYTES,BUN,CREA,GLUC) on 05-06-2024 Anion gap [Moles/Vol] 13 mmol/L Normal 7-17 [facility] Comment on above: Performed By: #### M GO, CHM7, IPB, CKB, TRIG, LDO #### [facility] (DEFAULT) [address] [place] [address] 66193 Chloride [Moles/Vol] 107 mmol/L Normal 98-108 [facility] Comment on above: Performed By: #### M GO, CHM7, IPB, CKB, TRIG, LDO #### [facility] (DEFAULT) [address] [place] [address] 90651 CO2 [Moles/Vol] 21 mmol/L Normal 21-31 [facility] Comment on above: Performed By: #### M GO, CHM7, IPB, CKB, TRIG, LDO #### [facility] (DEFAULT) [address] [place] [address] 77341 Creatinine [Mass/Vol] 3.60 mg/dL High 0.50-1.20 [facility] Comment on above: Performed By: #### M GO, CHM7, IPB, CKB, TRIG, LDO #### [facility] (DEFAULT) [address] [place] [address] 53916 GFR/1.73 sq M.predicted among non-blacks MDRD (S/P/Bld) [Vol rate/Area] 12 mL/min/{1.73_m2} Low >=60 [facility] Comment on above: Result Comment: Repo rted eGFR is based on the CKD-EPI 2020 equation using creatinine, age, and sex. Performed By: #### M GO, CHM7, IPB, CKB, TRIG, LDO #### [facility] (DEFAULT) [address] [place] [address] 01224 Glucose [Mass/Vol] 90 mg/dL Normal 70-99 [facility] Comment on above: Performed By: #### M GO, CHM7, IPB, CKB, TRIG, LDO #### [facility] (DEFAULT) [address] [place] [address] 49498 Osmolality [Osmolality] 301 mosm/kg Normal 278-305 [facility] Comment on above: Performed By: #### M GO, CHM7, IPB, CKB, TRIG, LDO #### [facility] (DEFAULT) [address] [place] [address] 99357 Potassium [Moles/Vol] 4.1 mmol/L Normal 3.5-5.0 [facility] Comment on above: Performed By: #### M GO, CHM7, IPB, CKB, TRIG, LDO #### [facility] (DEFAULT) [address] [place] [address] 95906 Sodium [Moles/Vol] 137 mmol/L Normal 135-145 [facility] Comment on above: Performed By: #### M GO, CHM7, IPB, CKB, TRIG, LDO #### [facility] (DEFAULT) [address] [place] [address] 07093 Urea nitrogen [Mass/Vol] 52 mg/dL High 7-25 [facility] Comment on above: Performed By: #### M GO, CHM7, IPB, CKB, TRIG, LDO #### [facility] (DEFAULT) [address] [place] [address] 57571 Urea nitrogen/Creatinine [Mass ratio] 14 mg/mg Normal [facility] Comment on above: Performed By: #### M GO, CHM7, IPB, CKB, TRIG, LDO #### [facility] (DEFAULT) [address] [place] [address] 10645 CRYPTOCOCCUS, ANTIGEN CSFOrd ered By: Raheem Castorena on 05-06-2024 Cryptococcus sp Ag Ql (CSF) Negative Negative [facility] Interpretation and review of laboratory results Normal [facility] CSF DIFFERENTIALOrdered By: Ramon Kennedy on 05-06-2024 Basophils/100 WBC Manual cnt (CSF) 0 % [facility] Work Phone: Cells Counted Total (CSF) [#] 100 [facility] Work Phone: Eosinophils/100 WBC Manual cnt (CSF) 0 % [facility] Work Phone: Interpretation and review of laboratory results Abnormal [facility] Work Phone: Lymphocytes/100 WBC Manual cnt (CSF) 90 % High 40 - 80 % [facility] Work Phone: Monocytes+Macrophages/ 100 WBC (CSF) 6 % Low 15 - 45 % [facility] Work Phone: Neutrophils/100 WBC Manual cnt (CSF) 4 % NINF - 6 % [facility] Work Phone: Pathologist review Janes (Unsp spec) [Interp] Ramon Kennedy MD [facility] Work Phone: Pathology report comments [Interpretation] Narrative j4tqcSLoRIBsbOCkKQukNwjixrB nWZKzmYUhD4CxdofcVDjpCF8nAY 6hcHpnnLIojNKdWYPnLbWzk3cmi 641gORqp6tvKOJXDJeuNKMBVUu1 aUppS49ow5Q2AeovX96abRSbARA 6PAMjSMNikDLiSTWfMXA2ZQJhzW ZxZ9ilNVLbJZ3wzplePDtrOXhjA DYpjXR4NKGrrDLtN7QkMEBpAWmc YZQcxyu7ZhNpAf2xyXOvcFjuVAp wYXJkXHBsYWluXGZzMjBccHJvdG UzuBkqQpqcdPY4TTacRzuzbQ8wd KJOQNOFYowPAhvluyBjOL1NFVFF RdRDDH38CgF2RlO0ZTfldXeuVfn mhgAkjIYgHgBepA5AtwQ0izGmjU x5u7UptTTflxgfzmxneNCyx4Gtm s3xBQMnr99hVIlnHUVcTRQojmVz IEFjdXRlIGFuZCBjaHJvbmljIGl kNekizH5ihN7mzFGrMBxqlnMqcr ZaCU72SeLtC67cgaJkUZOqe73cn 7n6wSIkxnEeNOH4CTtvUNHcHXQo uHz0tUMmYATuJ49adJMmDQKnIdu vZtyzcJR0MYksPrizrP4auJAKGT JLZyhWNqpclaJjCC8MCSCEWX1Gg DCrBxMmsKP7MT99UWLuDIPjqDPh WEnaM799FWEkZRmhJDXsYuUfnPM oFKTaobXpyNJvYFCzW32NHnDPRL FRV27JQRYRQTDLY5ZSM1bIBEKsQ vAqvFN2QYFmWgsaBwduLOmsU57C UiECULHJE40SGUOKWQGJO8UOMKM EUHvVO0SKFF4XNJXIIKPOPO4XUO hUBkKMRDhRY1BPJG4UTLRMPHADJ D6IHeTzKKwKV6MYG2lEWVPaVAFF BXHJQCIbJsQKIS9uBTq4IPrhIQB ySRnwChr1nDUvZ84jCCZ5DjE5Ta ClvQVLFPCREPbSXCHVAj1VVERLB UNKTP9BZoOkY2EWBS6CCs8GHPCU WRMRIL4PCPbPCjBcJ0KOET7JTs3 WZRNMYFGMTB7LNsJgNHGQL9FZKi FUV2cvKHSQKUOXNWHzOhYLQQ9wC VXZCG3XMGEJRVFHD62DZIQESTIF D3RYAK7= [facility] Work Phone: Tube number Nom (CSF) [ID] CSF TUBE 4 [facility] Work Phone: [facility] Work Phone: Culture, Blood (WB)on 2024 CUB LEFT UPPER ARM Blood cultures x2, from two different sites No growth in 5 days. Normal [facility] Comment on above: Performed By: #### M 200.1000, L500.4050, L100.0100, L300.3900, L503.6005 ####[facility] [address] [place], [address] FIBRINOGEN, CLOTTABLEon 04-08 Fibrinogen-Clottable 502 mg/dL High 220-410 [facility] Comment on above: Order Comment: Fibr [...] caution. Performed By: #### R ES #### [facility] (DEFAULT) [address] [place] [address] 78702 IONIZED CALCIUM, WHOLE BLOOD on 05-06-2024 ICA 4.02 mg/dL Low 4.60-5.30 [facility] Comment on above: Performed By: #### M OMER, CHM7, IPB, CKB, TRIG, LDO #### [facility] (DEFAULT) [address] [place] [address] 16427 MAGNESIUMon 05-06-2024 Magnesium [Mass/Vol] 1.9 mg/dL 1.6 - 2 .6 mg/dL [facility] Magnesium [Mass/Vol] 1.9 mg/dL Normal 1.6-2.6 [facility] Comment on above: Performed By: #### M OMER, CHM7, IPB, CKB, TRIG, LDO #### [facility] (DEFAULT) [address] [place] [address] 11118 Magnesium [Mass/Vol] 2.2 mg/dL Normal 1.6-2.6 [facility] Comment on above: Performed By: #### M OMER, CHM7, IPB, CKB, TRIG, LDO #### [facility] (DEFAULT) [address] [place] [address] 31122 MR Brain WO and W contrast I Von 05-06-2024 Radiology Study observation (narrative) [facility] MRI PLAIN FILM FOR NEURO EXA 05-06-2024 [...] MRI. Intrauterine contraceptive device in place. Normal [facility] RADIOLOGY RADIOLOGY [facility] Radiology Study observation (narrative) [facility] MRI PLAIN FILM FOR NEURO EXA MOrdered By: Earlene Wylie on 05-06-2024 [facility] Work Phone: No Panel Informationon 05-06 Interpretation and review of laboratory results Normal [facility] PHOSPHATE, INORGANICon 05-06 Phosphate [Mass/Vol] 4 mg/dL 2.2 - 4 .6 mg/dL [facility] Phosphorous 4.0 mg/dL Normal 2.2-4.6 [facility] Comment on above: Performed By: #### M OMER, CHM7, IPB, CKB, TRIG, LDO #### [facility] (DEFAULT) [address] [address] Phosphorous 5.2 mg/dL High 2.2-4.6 [facility] Comment on above: Performed By: #### M GO, CHM7, IPB, CKB, TRIG, LDO #### [facility] (DEFAULT) [address] [address] ARTERIAL BLOOD GASon 025 Base Excess -4.0 mmol/L Low -3.0-3.0 [facility] Comment on above: Order Comment: For O pti-Oxygen Performed By: #### M GO, CHM7, IPB, CKB, TRIG, LDO #### [facility] (DEFAULT) [address] [place] [address] 32063 FIO2 30 % Normal [facility] Comment on above: Order Comment: For O pti-Oxygen Result Comment: vent Performed By: #### M GO, CHM7, IPB, CKB, TRIG, LDO #### [facility] (DEFAULT) [address] [place] [address] 51467 HCO3 (Bld) [Moles/Vol] 20 mmol/L Low 22-28 [facility] Comment on above: Order Comment: For O pti-Oxygen Performed By: #### M GO, CHM7, IPB, CKB, TRIG, LDO #### [facility] (DEFAULT) [address] [place] [address] 87665 Oxygen saturation in Blood 98 % Normal 94-98 [facility] Comment on above: Order Comment: For O pti-Oxygen Performed By: #### M GO, CHM7, IPB, CKB, TRIG, LDO #### [facility] (DEFAULT) [address] [place] [address] 52689 pCO2 27 mm Hg Low 32-48 [facility] Comment on above: Order Comment: For O pti-Oxygen Performed By: #### M GO, CHM7, IPB, CKB, TRIG, LDO #### [facility] (DEFAULT) [address] [place] [address] 91328 PF Ratio 397 Normal [facility] Comment on above: Order Comment: For O pti-Oxygen Performed By: #### M GO, CHM7, IPB, CKB, TRIG, LDO #### [facility] (DEFAULT) [address] [place] [address] 42954 pH, Arterial 7.47 High 7.35-7.45 [facility] Comment on above: Order Comment: For O pti-Oxygen Performed By: #### M GO, CHM7, IPB, CKB, TRIG, LDO #### [facility] (DEFAULT) [address] [place] [address] 06861 pO2 119 mm Hg High 83-108 [facility] Comment on above: Order Comment: For O pti-Oxygen Performed By: #### M GO, CHM7, IPB, CKB, TRIG, LDO #### [facility] (DEFAULT) [address] [place] [address] 94565 Specimen type Nom (Spec) Arterial Normal [facility] Comment on above: Order Comment: For O pti-Oxygen Performed By: #### M GO, CHM7, IPB, CKB, TRIG, LDO #### [facility] (DEFAULT) [address] [place] [address] 01740 BLOOD CULTUREon 05-05-2024 Bacteria identified Cx Nom (Unsp spec) NO GROWTH DAY 5 OF 5 Normal [facility] Comment on above: Order Comment: 2 Bot tles (1 Set - consists of 1 Aerobic bottle and 1 Anaerobic bottle) -1st Peripheral DrawFor vacutainer method draw: Fill aerobic bottle first, then anaerobic Performed By: #### M GO, CHM7, IPB, CKB, TRIG, LDO #### [facility] (DEFAULT) [address] [place] [address] 08451 Bacteria identified Cx Nom (Unsp spec) NO GROWTH DAY 5 OF 5 Normal [facility] Comment on above: Order Comment: 2 Bot tles (1 Set - consists of 1 Aerobic bottle and 1 Anaerobic bottle) -1st Peripheral DrawFor vacutainer method draw: Fill aerobic bottle first, then anaerobic Performed By: #### M GO, CHM7, IPB, CKB, TRIG, LDO #### [facility] (DEFAULT) [address] [place] [address] 09103 BODY FLUID CULTURE AND DIREC T SMEARon 05-05-2024 Bacteria identified Cx Nom (Unsp spec) NO GROWTH DAY 2 OF 2 Normal [facility] Comment on above: Performed By: #### M GO, CHM7, IPB, CKB, TRIG, LDO #### [facility] (DEFAULT) [address] [place] [address] Microscopic observation Gram stain Nom (Unsp spec) Normal [facility] Comment on above: Result Comment: Cyto centrifuge preparation Neutrophils, Light Mononuclear cells present Red Blood Cells Present No organisms seen Final report, verified by Microbiology. Performed By: #### M GO, CHM7, IPB, CKB, TRIG, LDO #### [facility] (DEFAULT) [address] [place] [address] Basic Metabolic Profile (BMP )on 05-05-2024 BUN Normal 7-18 [facility] Comment on above: Result Comment: Canc elled via OM: Order cancelled - Patient discharged Performed By: #### L 500.2500, L100.0100 ####[facility] [address] [place], [address] BUN/CRE Normal 10-20 [facility] Comment on above: Result Comment: Canc elled via OM: Order cancelled - Patient discharged Performed By: #### L 500.2500, L100.0100 ####[facility] [address] [place], [address] CA,Total Normal 8.5-10.1 [facility] Comment on above: Result Comment: Canc elled via OM: Order cancelled - Patient discharged Performed By: #### L 500.2500, L100.0100 ####[facility] [address] [place], [address] CL Normal 98-107 [facility] Comment on above: Result Comment: Canc elled via OM: Order cancelled - Patient discharged Performed By: #### L 500.2500, L100.0100 ####[facility] [address] [place], [address] CO2 Normal 21.0-32.0 [facility] Comment on above: Result Comment: Canc elled via OM: Order cancelled - Patient discharged Performed By: #### L 500.2500, L100.0100 ####[facility] [address] [place], [address] CREAT,SERUM Normal 0.55-1.02 [facility] Comment on above: Result Comment: Canc elled via OM: Order cancelled - Patient discharged Performed By: #### L 500.2500, L100.0100 ####[facility] [address] [place], [address] EST GFR Normal >60 [facility] Comment on above: Result Comment: Canc elled via OM: Order cancelled - Patient discharged Performed By: #### L 500.2500, L100.0100 ####[facility] [address] [place], [address] EST GFR - AA Normal >60 [facility] Comment on above: Result Comment: Canc elled via OM: Order cancelled - Patient discharged Performed By: #### L 500.2500, L100.0100 ####[facility] [address] [place], [address] GAP Normal 5-15 [facility] Comment on above: Result Comment: Canc elled via OM: Order cancelled - Patient discharged Performed By: #### L 500.2500, L100.0100 ####[facility] [address] [place], [address] GLU Normal 74-106 [facility] Comment on above: Result Comment: Canc elled via OM: Order cancelled - Patient discharged Performed By: #### L 500.2500, L100.0100 ####[facility] [address] [place], [address] Potassium Normal 3.5-5.1 [facility] Comment on above: Result Comment: Canc elled via OM: Order cancelled - Patient discharged Performed By: #### L 500.2500, L100.0100 ####[facility] [address] [place], [address] Basic Metabolic Profile (BMP) Normal 136-145 [facility] Comment on above: Result Comment: Canc elled via OM: Order cancelled - Patient discharged Performed By: #### L 500.2500, L100.0100 ####[facility] [address] [place], [address] CBC W/Diff, Automatedon 01-3 0-2024 Absolute Neut Normal 2.0-7.7 [facility] Comment on above: Result Comment: Canc elled via OM: Order cancelled - Patient discharged Performed By: #### L 500.2500, L100.0100 ####[facility] [address] [place], [address] HCT Normal 37-47 [facility] Comment on above: Result Comment: Canc elled via OM: Order cancelled - Patient discharged Performed By: #### L 500.2500, L100.0100 ####[facility] [address] [place], [address] HGB Normal 12.0-15.0 [facility] Comment on above: Result Comment: Canc elled via OM: Order cancelled - Patient discharged Performed By: #### L 500.2500, L100.0100 ####[facility] [address] [place], [address] MCH Normal 27.0-32.0 [facility] Comment on above: Result Comment: Canc elled via OM: Order cancelled - Patient discharged Performed By: #### L 500.2500, L100.0100 ####[facility] [address] [place], [address] MCHC Normal 32-36 [facility] Comment on above: Result Comment: Canc elled via OM: Order cancelled - Patient discharged Performed By: #### L 500.2500, L100.0100 ####[facility] [address] [place], [address] MCV Normal 81-99 [facility] Comment on above: Result Comment: Canc elled via OM: Order cancelled - Patient discharged Performed By: #### L 500.2500, L100.0100 ####[facility] [address] [place], [address] NEUT% Normal 47-70 [facility] Comment on above: Result Comment: Canc elled via OM: Order cancelled - Patient discharged Performed By: #### L 500.2500, L100.0100 ####[facility] [address] [place], [address] PLT Normal 150-450 [facility] Comment on above: Result Comment: Canc elled via OM: Order cancelled - Patient discharged Performed By: #### L 500.2500, L100.0100 ####[facility] [address] [place], [address] RBC Normal 4.2-5.4 [facility] Comment on above: Result Comment: Canc elled via OM: Order cancelled - Patient discharged Performed By: #### L 500.2500, L100.0100 ####[facility] [address] [place], [address] RDW CV Normal 11.6-14.6 [facility] Comment on above: Result Comment: Canc elled via OM: Order cancelled - Patient discharged Performed By: #### L 500.2500, L100.0100 ####[facility] [address] [place], [address] RDW SD Normal 35.1-43.9 [facility] Comment on above: Result Comment: Canc elled via OM: Order cancelled - Patient discharged Performed By: #### L 500.2500, L100.0100 ####[facility] [address] [place], [address] WBC Normal 4.4-11.0 [facility] Comment on above: Result Comment: Canc elled via OM: Order cancelled - Patient discharged Performed By: #### L 500.2500, L100.0100 ####[facility] [address] [place], [address] CBC,PLATELETSon 05-05-2024 Hematocrit (Bld) [Volume fraction] 24.3 % Low 34.9-44.3 [facility] Comment on above: Performed By: #### M GO, CHM7, IPB, CKB, TRIG, LDO #### [facility] (DEFAULT) [address] [place] [address] Hemoglobin (Bld) [Mass/Vol] 7.9 g/dL Low 11.4-15.2 [facility] Comment on above: Performed By: #### M GO, CHM7, IPB, CKB, TRIG, LDO #### [facility] (DEFAULT) [address] [place] [address] 25484 MCV (RBC) [Entitic vol] 98.4 fL High 79.6-97.7 [facility] Comment on above: Performed By: #### M GO, CHM7, IPB, CKB, TRIG, LDO #### [facility] (DEFAULT) [address] [place] [address] 91549 Mean Cell Hgb 32.0 pg Normal 25.9-33.9 [facility] Comment on above: Performed By: #### M GO, CHM7, IPB, CKB, TRIG, LDO #### [facility] (DEFAULT) [address] [place] [address] 33547 Mean Cell Hgb Conc 32.5 g/dL Normal 31.4-35.9 [facility] Comment on above: Performed By: #### M GO, CHM7, IPB, CKB, TRIG, LDO #### [facility] (DEFAULT) [address] [place] [address] 75468 Platelet mean volume (Bld) [Entitic vol] 12.1 fL Normal 8.5-12.2 [facility] Comment on above: Performed By: #### M GO, CHM7, IPB, CKB, TRIG, LDO #### [facility] (DEFAULT) [address] [place] [address] 76503 Platelets (Bld) [#/Vol] 83 10*3/uL Low 150-393 [facility] Comment on above: Performed By: #### M GO, CHM7, IPB, CKB, TRIG, LDO #### [facility] (DEFAULT) [address] [place] [address] 50279 RBC (Bld) [#/Vol] 2.47 10*6/uL Low 3.91-5.04 [facility] Comment on above: Performed By: #### M GO, CHM7, IPB, CKB, TRIG, LDO #### [facility] (DEFAULT) [address] [place] [address] 75496 RBC Distribution 16.6 % High 10.8-14.9 [facility] Comment on above: Performed By: #### M GO, CHM7, IPB, CKB, TRIG, LDO #### [facility] (DEFAULT) [address] [place] [address] 93312 WBC (Bld) [#/Vol] 16.19 10*3/uL High 3.99-11.19 [facility] Comment on above: Performed By: #### M GO, CHM7, IPB, CKB, TRIG, LDO #### [facility] (DEFAULT) [address] [place] [address] 40330 CHEM 7 (LYTES,BUN,CREA,GLUC) on 05-05-2024 Anion gap [Moles/Vol] 13 mmol/L Normal 7-17 [facility] Comment on above: Performed By: #### M GO, CHM7, IPB, CKB, TRIG, LDO #### [facility] (DEFAULT) [address] [place] [address] 39678 Chloride [Moles/Vol] 105 mmol/L Normal 98-108 [facility] Comment on above: Performed By: #### M GO, CHM7, IPB, CKB, TRIG, LDO #### [facility] (DEFAULT) [address] [place] [address] 83889 CO2 [Moles/Vol] 22 mmol/L Normal 21-31 [facility] Comment on above: Performed By: #### M GO, CHM7, IPB, CKB, TRIG, LDO #### [facility] (DEFAULT) [address] [place] [address] 24856 Creatinine [Mass/Vol] 3.42 mg/dL High 0.50-1.20 [facility] Comment on above: Performed By: #### M GO, CHM7, IPB, CKB, TRIG, LDO #### [facility] (DEFAULT) [address] [place] [address] 39640 GFR/1.73 sq M.predicted among non-blacks MDRD (S/P/Bld) [Vol rate/Area] 13 mL/min/{1.73_m2} Low >=60 [facility] Comment on above: Result Comment: Repo rted eGFR is based on the CKD-EPI 2020 equation using creatinine, age, and sex. Performed By: #### M GO, CHM7, IPB, CKB, TRIG, LDO #### [facility] (DEFAULT) [address] [place] [address] 27259 Glucose [Mass/Vol] 88 mg/dL Normal 70-99 [facility] Comment on above: Performed By: #### M GO, CHM7, IPB, CKB, TRIG, LDO #### [facility] (DEFAULT) [address] [place] [address] 16450 Osmolality [Osmolality] 299 mosm/kg Normal 278-305 [facility] Comment on above: Performed By: #### M GO, CHM7, IPB, CKB, TRIG, LDO #### [facility] (DEFAULT) [address] [place] [address] 70200 Potassium [Moles/Vol] 4.3 mmol/L Normal 3.5-5.0 [facility] Comment on above: Performed By: #### M GO, CHM7, IPB, CKB, TRIG, LDO #### [facility] (DEFAULT) [address] [place] [address] 87356 Sodium [Moles/Vol] 136 mmol/L Normal 135-145 [facility] Comment on above: Performed By: #### M GO, CHM7, IPB, CKB, TRIG, LDO #### [facility] (DEFAULT) [address] [place] [address] 21885 Urea nitrogen [Mass/Vol] 51 mg/dL High 7-25 [facility] Comment on above: Performed By: #### M GO, CHM7, IPB, CKB, TRIG, LDO #### [facility] (DEFAULT) [address] [place] [address] 64283 Urea nitrogen/Creatinine [Mass ratio] 15 mg/mg Normal [facility] Comment on above: Performed By: #### M GO, CHM7, IPB, CKB, TRIG, LDO #### [facility] (DEFAULT) [address] [place] [address] 08595 Anion gap [Moles/Vol] 13 mmol/L Normal 7-17 [facility] Comment on above: Performed By: #### M GO, CHM7, IPB, CKB, TRIG, LDO #### [facility] (DEFAULT) [address] [place] [address] 81898 Chloride [Moles/Vol] 105 mmol/L Normal 98-108 [facility] Comment on above: Performed By: #### M GO, CHM7, IPB, CKB, TRIG, LDO #### [facility] (DEFAULT) [address] [place] [address] 76709 CO2 [Moles/Vol] 22 mmol/L Normal 21-31 [facility] Comment on above: Performed By: #### M GO, CHM7, IPB, CKB, TRIG, LDO #### [facility] (DEFAULT) [address] [place] [address] 45349 Creatinine [Mass/Vol] 3.49 mg/dL High 0.50-1.20 [facility] Comment on above: Performed By: #### M GO, CHM7, IPB, CKB, TRIG, LDO #### [facility] (DEFAULT) [address] [place] [address] 52337 GFR/1.73 sq M.predicted among non-blacks MDRD (S/P/Bld) [Vol rate/Area] 13 mL/min/{1.73_m2} Low >=60 [facility] Comment on above: Result Comment: Repo rted eGFR is based on the CKD-EPI 2020 equation using creatinine, age, and sex. Performed By: #### M GO, CHM7, IPB, CKB, TRIG, LDO #### [facility] (DEFAULT) [address] [place] [address] 18238 Glucose [Mass/Vol] 95 mg/dL Normal 70-99 [facility] Comment on above: Performed By: #### M GO, CHM7, IPB, CKB, TRIG, LDO #### [facility] (DEFAULT) [address] [place] [address] 37368 Osmolality [Osmolality] 299 mosm/kg Normal 278-305 [facility] Comment on above: Performed By: #### M GO, CHM7, IPB, CKB, TRIG, LDO #### [facility] (DEFAULT) [address] [place] [address] 15766 Potassium [Moles/Vol] 4.3 mmol/L Normal 3.5-5.0 [facility] Comment on above: Performed By: #### M GO, CHM7, IPB, CKB, TRIG, LDO #### [facility] (DEFAULT) [address] [place] [address] 22364 Sodium [Moles/Vol] 136 mmol/L Normal 135-145 [facility] Comment on above: Performed By: #### M GO, CHM7, IPB, CKB, TRIG, LDO #### [facility] (DEFAULT) [address] [place] [address] 11388 Urea nitrogen [Mass/Vol] 50 mg/dL High 7-25 [facility] Comment on above: Performed By: #### M GO, CHM7, IPB, CKB, TRIG, LDO #### [facility] (DEFAULT) [address] [place] [address] 79272 Urea nitrogen/Creatinine [Mass ratio] 14 mg/mg Normal [facility] Comment on above: Performed By: #### M GO, CHM7, IPB, CKB, TRIG, LDO #### [facility] (DEFAULT) [address] [place] [address] 59293 CKon 05-05-2024 CK [Catalytic activity/Vol] 224 U/L High 30-184 [facility] Comment on above: Order Comment: While on Propofol. Performed By: #### M GO, CHM7, IPB, CKB, TRIG, LDO #### [facility] (DEFAULT) [address] [place] [address] 44624 CRYPTOCOCCUS, ANTIGEN CSFon 05-05-2024 Cryptococcus Ag, CSF Negative Normal Negative [facility] Comment on above: Performed By: #### F CRAG #### [facility] (DEFAULT) [address] [place] [address] 71970 CSF DIFFERENTIALon 5 Basophils (Csf) 0 % Normal [facility] Comment on above: Result Comment: The reference range has not been established for this parameter for this fluid. Clinical correlation is recommended. Performed By: #### M GO, CHM7, IPB, CKB, TRIG, LDO #### [facility] (DEFAULT) [address] [place] [address] 82069 Cells Counted (CSF) 100 Normal [facility] Comment on above: Performed By: #### M GO, CHM7, IPB, CKB, TRIG, LDO #### [facility] (DEFAULT) [address] [place] [address] 45949 Comment (Csf) Normal [facility] Comment on above: Result Comment: No u nequivocal organisms seen. Blood is present. Acute and chronic inflammatory cells present. Correlation with gram stain and culture recommended. Performed By: #### M GO, CHM7, IPB, CKB, TRIG, LDO #### [facility] (DEFAULT) [address] [place] [address] 08447 Differential Reviewed By Ramon Kennedy MD [facility] Comment on above: Performed By: #### M GO, CHM7, IPB, CKB, TRIG, LDO #### [facility] (DEFAULT) [address] [place] [address] 36531 Eosinophils (Csf) 0 % Normal [facility] Comment on above: Result Comment: The reference range has not been established for this parameter for this fluid. Clinical correlation is recommended. Performed By: #### M GO, CHM7, IPB, CKB, TRIG, LDO #### [facility] (DEFAULT) [address] [place] [address] 67814 Lymphocytes (Csf) 90 % High 40-80 [facility] Comment on above: Performed By: #### M GO, CHM7, IPB, CKB, TRIG, LDO #### [facility] (DEFAULT) [address] [place] [address] 52330 Monocytes/Macrophages, CSF 6 % Low 15-45 [facility] Comment on above: Performed By: #### M GO, CHM7, IPB, CKB, TRIG, LDO #### [facility] (DEFAULT) [address] [place] [address] 97017 Neutrophils (Csf) 4 % Normal <=6 [facility] Comment on above: Performed By: #### M GO, CHM7, IPB, CKB, TRIG, LDO #### [facility] (DEFAULT) [address] [place] [address] 37341 CSF FLUID COUNT ONLYon 05-05 CSF Tube Number CSF TUBE 4 Normal [facility] Comment on above: Performed By: #### M GO, CHM7, IPB, CKB, TRIG, LDO #### [facility] (DEFAULT) [address] [place] [address] 80337 Gross Appearance (Csf) Normal [facility] Comment on above: Result Comment: Zuri Siddiqui Performed By: #### M GO, CHM7, IPB, CKB, TRIG, LDO #### [facility] (DEFAULT) [address] [place] [address] 55935 RBC (Bld) [#/Vol] 0.55163 10*6/uL High <3 [facility] Comment on above: Performed By: #### M GO, CHM7, IPB, CKB, TRIG, LDO #### [facility] (DEFAULT) [address] [place] [address] 71789 Supernatant (Csf) Not Indicated Normal [facility] Comment on above: Performed By: #### M GO, CHM7, IPB, CKB, TRIG, LDO #### [facility] (DEFAULT) [address] [place] [address] 97129 Total Nucleated Cells (TNC CSF) 7 /uL High <6 [facility] Comment on above: Performed By: #### M GO, CHM7, IPB, CKB, TRIG, LDO #### [facility] (DEFAULT) [address] [place] [address] HEAD WITHOUT CONTRASTon 0 05-05-2024 CT [...] noted. IMPRESSION: No acute cranial abnormality. Normal [facility] DIALYSIS HEP PANEL-CHRONICon 05-05-2024 Hep B Core Ab,Total (IgG+IgM) Negative Normal Negative [facility] Comment on above: Performed By: #### F CRAG #### [facility] (DEFAULT) [address] [place] [address] Hep B Surface Ab Negative Normal Negative [facility] Comment on above: Performed By: #### F CRAG #### [facility] (DEFAULT) [address] [address] Hepatitis C Antibody Negative Normal Negative [facility] Comment on above: Performed By: #### F CRAG #### [facility] (DEFAULT) [address] [address] ENCEPHALOPATHY, AUTOIMMUNE E VALUATION, CSFon 05-05-2024 AGNA-1,CSF Negative Normal Negative [facility] Comment on above: Result Comment: ADDITIONAL INFORMATION This test was developed and its performance characteristics determined by [facility] in a manner consistent with CLIA requirements. This test has not been cleared or approved by the U.S. Food and Drug Administration. Performed By: #### M GO, CHM7, IPB, CKB, TRIG, LDO #### [facility] (DEFAULT) [address] [place] [address] AMPA-R AB CBA, CSF Negative Normal Negative [facility] Comment on above: Result Comment: ADDITIONAL INFORMATION This test was developed and its performance characteristics determined by [facility] in a manner consistent with CLIA requirements. This test has not been cleared or approved by the [place].S. Food and Drug Administration. Performed By: #### Dede GO, CHM7, IPB, CKB, TRIG, LDO #### [facility] (DEFAULT) [address] [place] [address] AMPHIPHYSIN AB, CSF Negative Normal Negative [facility] Comment on above: Result Comment: ADDITIONAL INFORMATION This test was developed and its performance characteristics determined by [facility] in a manner consistent with CLIA requirements. This test has not been cleared or approved by the U.S. Food and Drug Administration. Performed By: #### Dede GO, CHM7, IPB, CKB, TRIG, LDO #### [facility] (DEFAULT) [address] [place] [address] MAT-1, CSF Negative Normal Negative [facility] Comment on above: Result Comment: ADDITIONAL INFORMATION This test was developed and its performance characteristics determined by [facility] in a manner consistent with CLIA requirements. This test has not been cleared or approved by the [place].S. Food and Drug Administration. Performed By: #### Dede GO, CHM7, IPB, CKB, TRIG, LDO #### [facility] (DEFAULT) [address] [place] [address] MAT-2,CSF Negative Normal Negative [facility] Comment on above: Result Comment: ADDITIONAL INFORMATION This test was developed and its performance characteristics determined by [facility] in a manner consistent with CLIA requirements. This test has not been cleared or approved by the [place].S. Food and Drug Administration. Performed By: #### M GO, CHM7, IPB, CKB, TRIG, LDO #### [facility] (DEFAULT) [address] [place] [address] MAT-3,CSF Negative Normal Negative [facility] Comment on above: Result Comment: ADDITIONAL INFORMATION This test was developed and its performance characteristics determined by [facility] in a manner consistent with CLIA requirements. This test has not been cleared or approved by the U.S. Food and Drug Administration. Performed By: #### M GO, CHM7, IPB, CKB, TRIG, LDO #### [facility] (DEFAULT) [address] [place] [address] CASPR2-IgG CBA, CSF Negative Normal Negative [facility] Comment on above: Result Comment: ADDITIONAL INFORMATION This test was developed and its performance characteristics determined by [facility] in a manner consistent with CLIA requirements. This test has not been cleared or approved by the [place].S. Food and Drug Administration. Performed By: #### M GO, CHM7, IPB, CKB, TRIG, LDO #### [facility] (DEFAULT) [address] [place] [address] CRMP-5-IGG,CSF Negative Normal Negative [facility] Comment on above: Result Comment: ADDITIONAL INFORMATION This test was developed and its performance characteristics determined by [facility] in a manner consistent with CLIA requirements. This test has not been cleared or approved by the U.S. Food and Drug Administration. Performed By: #### M GO, CHM7, IPB, CKB, TRIG, LDO #### [facility] (DEFAULT) [address] [place] [address] 31836 DPPX AB CBA,CSF Negative Normal Negative [facility] Comment on above: Result Comment: ADDITIONAL INFORMATION This test was developed and its performance characteristics determined by [facility] in a manner consistent with CLIA requirements. This test has not been cleared or approved by the U.S. Food and Drug Administration. Performed By: #### M GO, CHM7, IPB, CKB, TRIG, LDO #### [facility] (DEFAULT) [address] [place] [address] 65100 Encephalopathy, Interpretation, CSF SEE COMMENTS Normal [facility] Comment on above: Result Comment: No i nformative autoantibodies were detected in this evaluation. However, a negative result does not exclude autoimmune encephalopathy, idiopathic or paraneoplastic. Sensitivity and specificity of antibody testing are enhanced by testing both serum and CSF. Performed By: #### M GO, CHM7, IPB, CKB, TRIG, LDO #### [facility] (DEFAULT) [address] [place] [address] 55324 ADRIENNE-B-R AB CBA, CSF Negative Normal Negative [facility] Comment on above: Result Comment: ADDITIONAL INFORMATION This test was developed and its performance characteristics determined by [facility] in a manner consistent with CLIA requirements. This test has not been cleared or approved by the U.S. Food and Drug Administration. Performed By: #### M GO, CHM7, IPB, CKB, TRIG, LDO #### [facility] (DEFAULT) [address] [place] [address] GAD65 AB ASSAY, CSF 0.00 nmol/L Normal <= 0.02 [facility] Comment on above: Result Comment: ADDITIONAL INFORMATION This test was developed and its performance characteristics determined by [facility] in a manner consistent with CLIA requirements. This test has not been cleared or approved by the U.S. Food and Drug Administration. Performed By: #### Dede GO, CHM7, IPB, CKB, TRIG, LDO #### [facility] (DEFAULT) [address] [place] [address] GFAP IFA, CSF Negative Normal Negative [facility] Comment on above: Result Comment: ADDITIONAL INFORMATION This test was developed and its performance characteristics determined by [facility] in a manner consistent with CLIA requirements. This test has not been cleared or approved by the U.S. Food and Drug Administration. Performed By: #### Dede GO, CHM7, IPB, CKB, TRIG, LDO #### [facility] (DEFAULT) [address] [place] [address] IFA Notes None. Normal [facility] Comment on above: Performed By: #### Dede GO, CHM7, IPB, CKB, TRIG, LDO #### [facility] (DEFAULT) [address] [place] [address] IgLON5 CBA, CSF Negative Normal Negative [facility] Comment on above: Result Comment: ADDITIONAL INFORMATION This test was developed and its performance characteristics determined by [facility] in a manner consistent with CLIA requirements. This test has not been cleared or approved by the U.S. Food and Drug Administration. Performed By: #### M GO, CHM7, IPB, CKB, TRIG, LDO #### [facility] (DEFAULT) [address] [place] [address] LGI1-IgG,CBA,csf Negative Normal Negative [facility] Comment on above: Result Comment: ADDITIONAL INFORMATION This test was developed and its performance characteristics determined by [facility] in a manner consistent with CLIA requirements. This test has not been cleared or approved by the U.S. Food and Drug Administration. Performed By: #### M GO, CHM7, IPB, CKB, TRIG, LDO #### [facility] (DEFAULT) [address] [place] [address] MGLUR1 AB, IFA, CSF Negative Normal Negative [facility] Comment on above: Result Comment: ADDITIONAL INFORMATION This test was developed and its performance characteristics determined by [facility] in a manner consistent with CLIA requirements. This test has not been cleared or approved by the U.S. Food and Drug Administration. Performed By: ###Nyla Aguayo GO, CHM7, IPB, CKB, TRIG, LDO #### [facility] (DEFAULT) [address] [place] [address] Neurochondrin IFA, CSF Negative Normal Negative [facility] Comment on above: Result Comment: ADDITIONAL INFORMATION This test was developed and its performance characteristics determined by [facility] in a manner consistent with CLIA requirements. This test has not been cleared or approved by the U.S. Food and Drug Administration. Performed By: #### M GO, CHM7, IPB, CKB, TRIG, LDO #### [facility] (DEFAULT) [address] [place] [address] NIF IFA, CSF Negative Normal Negative [facility] Comment on above: Result Comment: ADDITIONAL INFORMATION This test was developed and its performance characteristics determined by [facility] in a manner consistent with CLIA requirements. This test has not been cleared or approved by the U.S. Food and Drug Administration. Performed By: #### M GO, CHM7, IPB, CKB, TRIG, LDO #### [facility] (DEFAULT) [address] [place] [address] NMDA-R AB CBA, CSF Negative Normal Negative [facility] Comment on above: Result Comment: ADDITIONAL INFORMATION This test was developed and its performance characteristics determined by [facility] in a manner consistent with CLIA requirements. This test has not been cleared or approved by the U.S. Food and Drug Administration. Performed By: #### M GO, CHM7, IPB, CKB, TRIG, LDO #### [facility] (DEFAULT) [address] [place] [address] FAMILY PSYCHOLOGIST-1,CSF Negative Normal Negative [facility] Comment on above: Result Comment: ADDITIONAL INFORMATION This test was developed and its performance characteristics determined by [facility] in a manner consistent with CLIA requirements. This test has not been cleared or approved by the U.S. Food and Drug Administration. Performed By: #### M GO, CHM7, IPB, CKB, TRIG, LDO #### [facility] (DEFAULT) [address] [place] [address] FAMILY PSYCHOLOGIST-2,CSF Negative Normal Negative [facility] Comment on above: Result Comment: ADDITIONAL INFORMATION This test was developed and its performance characteristics determined by [facility] in a manner consistent with CLIA requirements. This test has not been cleared or approved by the U.S. Food and Drug Administration. Performed By: #### M GO, CHM7, IPB, CKB, TRIG, LDO #### [facility] (DEFAULT) [address] [place] [address] FAMILY PSYCHOLOGIST-TR,CSF Negative Normal Negative [facility] Comment on above: Result Comment: ADDITIONAL INFORMATION This test was developed and its performance characteristics determined by [facility] in a manner consistent with CLIA requirements. This test has not been cleared or approved by the U.S. Food and Drug Administration. Performed By: #### M GO, CHM7, IPB, CKB, TRIG, LDO #### [facility] [address] [place] [address] PDE10A AB IFA, CSF Negative Normal Negative [facility] Comment on above: Result Comment: ADDITIONAL INFORMATION This test was developed and its performance characteristics determined by [facility] in a manner consistent with CLIA requirements. This test has not been cleared or approved by the U.S. Food and Drug Administration. Performed By: #### M GO, CHM7, IPB, CKB, TRIG, LDO #### [facility] (DEFAULT) [address] [place] [address] Septin-7 IFA, CSF Negative Normal Negative [facility] Comment on above: Result Comment: ADDITIONAL INFORMATION This test was developed and its performance characteristics determined by [facility] in a manner consistent with CLIA requirements. This test has not been cleared or approved by the U.S. Food and Drug Administration. Performed By: #### M OMER, CHM7, IPB, CKB, TRIG, LDO #### [facility] (DEFAULT) [address] [address] Tripartite Motif-Containing Protein 46 IgG IFA, CSF Negative Normal Negative [facility] Comment on above: Result Comment: ADDITIONAL INFORMATION This test was developed and its performance characteristics determined by [facility] in a manner consistent with CLIA requirements. This test has not been cleared or approved by the U.S. Food and Drug Administration. Test Performed by: [place] [address] Screen Operator: Michael Pope Ph.D.; CLIA# [id number] Performed By: #### M OMER, CHM7, IPB, CKB, TRIG, LDO #### [facility] (DEFAULT) [address] [address] HAPTOGLOBINon 05-05-2024 Haptoglobin 306 mg/dL High 44-215 [facility] Comment on above: Performed By: #### F CRAG #### [facility] (DEFAULT) [address] [address] HEP B SURFACE AG-Nikolai 04-08 Hepatitis B Surface Ag-Stat Negative Normal Negative [facility] Comment on above: Performed By: #### F CRAG #### [facility] (DEFAULT) [address] [address] IONIZED CALCIUM, SERUMon ICA 4.62 mg/dL Normal 4.60-5.30 [facility] Comment on above: Performed By: #### F CRAG #### [facility] (DEFAULT) [address] [address] ICA 4.24 mg/dL Low 4.60-5.30 [facility] Comment on above: Performed By: #### F CRAG #### [facility] (DEFAULT) [address] [place] [address] LACTATE, CSFon 05-05-2024 Lactate, CSF 1.5 mmol/L Normal <2.8 [facility] Comment on above: Performed By: #### M GO, CHM7, IPB, CKB, TRIG, LDO #### [facility] (DEFAULT) [address] [place] [address] LOWER RESPIRATORY CULTURE, B ACTERIALon 05-05-2024 Bacteria identified Cx Nom (Unsp spec) Normal [facility] Comment on above: Result Comment: Grow 4470 Light Growth Common oropharyngeal microbes Performed By: #### R ES #### [facility] (DEFAULT) [address] [place] [address] Microscopic observation Gram stain Nom (Unsp spec) Normal [facility] Comment on above: Result Comment: Neut rophils, Heavy Contaminating bacteria and epithelials present Specimen is of optimum quality Performed By: #### R ES #### [facility] (DEFAULT) [address] [place] [address] MAGNESIUMon 05-05-2024 Magnesium [Mass/Vol] 2.2 mg/dL Normal 1.6-2.6 [facility] Comment on above: Performed By: #### M GO, CHM7, IPB, CKB, TRIG, LDO #### [facility] (DEFAULT) [address] [place] [address]57 Magnesium [Mass/Vol] 1.5 mg/dL Low 1.6-2.6 [facility] Comment on above: Performed By: #### M GO, CHM7, IPB, CKB, TRIG, LDO #### [facility] (DEFAULT) [address] [place] [address]32 Magnesium [Mass/Vol] 1.5 mg/dL Low 1.6-2.6 [facility] Comment on above: Performed By: #### M GO, CHM7, IPB, CKB, TRIG, LDO #### [facility] (DEFAULT) [address] [place], [place] [address] MENINGITIS/ENCEPHALITIS Regulo TRUJILLO 05-05-2024 CMV DNA Not detected Normal Not Detected [facility] Comment on above: Order Comment: A neg ative result does not exclude the possibility of CLINICAL ACADEMIC ALLERGIST infection and should not be used as [...] CHM7, IPB, CKB, TRIG, LDO #### [facility] (DEFAULT) [address] [place] [address] Cryptococcus Luly/Neoformans DNA Not detected Normal Not Detected [facility] Comment on above: Order Comment: A neg ative result does not exclude the possibility of CLINICAL ACADEMIC ALLERGIST infection and should not be used as [...] #### [facility] (DEFAULT) [address] [address] E. Coli K1 DNA Not detected Normal Not Detected [facility] Comment on above: Order Comment: A neg ative result does not exclude the possibility of CLINICAL ACADEMIC ALLERGIST infection and should not be used as [...] CHM7, IPB, CKB, TRIG, LDO #### [facility] (DEFAULT) [address] [address] Enterovirus RNA Not detected Normal Not Detected [facility] Comment on above: Order Comment: A neg ative result does not exclude the possibility of CLINICAL ACADEMIC ALLERGIST infection and should not be used as [...] CHM7, IPB, CKB, TRIG, LDO #### [facility] (DEFAULT) [address] [address] Haemophilus Influenza DNA Not detected Normal Not Detected [facility] Comment on above: Order Comment: A neg ative result does not exclude the possibility of CLINICAL ACADEMIC ALLERGIST infection and should not be used as [...] CHM7, IPB, CKB, TRIG, LDO #### [facility] (DEFAULT) [address] [place] [address] Hhv-6 DNA Not detected Normal Not Detected [facility] Comment on above: Order Comment: A neg ative result does not exclude the possibility of CLINICAL ACADEMIC ALLERGIST infection and should not be used as [...] CHM7, IPB, CKB, TRIG, LDO #### [facility] (DEFAULT) [address] [place] [address] Hsv-1 DNA Not detected Normal Not Detected [facility] Comment on above: Order Comment: A neg ative result does not exclude the possibility of CLINICAL ACADEMIC ALLERGIST infection and should not be used as [...] OMER, CHM7, IPB, CKB, TRIG, LDO #### [facility] (DEFAULT) [address] [place] [address] Hsv-2 DNA Not detected Normal Not Detected [facility] Comment on above: Order Comment: A neg ative result does not exclude the possibility of CLINICAL ACADEMIC ALLERGIST infection and should not be used as [...] OMER, CHM7, IPB, CKB, TRIG, LDO #### [facility] (DEFAULT) [address] [place] [address] Human Parechovirus RNA Not detected Normal Not Detected [facility] Comment on above: Order Comment: A neg ative result does not exclude the possibility of CLINICAL ACADEMIC ALLERGIST infection and should not be used as [...] OMER, CHM7, IPB, CKB, TRIG, LDO #### [facility] (DEFAULT) [address] [place] [address] Listeria Monocytogenes DNA Not detected Normal Not Detected [facility] Comment on above: Order Comment: A neg ative result does not exclude the possibility of CLINICAL ACADEMIC ALLERGIST infection and should not be used as [...] CHM7, IPB, CKB, TRIG, LDO #### [facility] (DEFAULT) [address] [place] [address] Neisseria Meningitidis DNA Not detected Normal Not Detected [facility] Comment on above: Order Comment: A neg ative result does not exclude the possibility of CLINICAL ACADEMIC ALLERGIST infection and should not be used as [...] CHM7, IPB, CKB, TRIG, LDO #### [facility] (DEFAULT) [address] [place] [address] Streptococcus Agalactiae DNA Not detected Normal Not Detected [facility] Comment on above: Order Comment: A neg ative result does not exclude the possibility of CLINICAL ACADEMIC ALLERGIST infection and should not be used as [...] CHM7, IPB, CKB, TRIG, LDO #### [facility] (DEFAULT) [address] [place] [address] Streptococcus Pneumoniae DNA Not detected Normal Not Detected [facility] Comment on above: Order Comment: A neg ative result does not exclude the possibility of CLINICAL ACADEMIC ALLERGIST infection and should not be used as [...] CHM7, IPB, CKB, TRIG, LDO #### [facility] (DEFAULT) [address] [place] [address] Varicella Zoster DNA Not detected Normal Not Detected [facility] Comment on above: Order Comment: A neg ative result does not exclude the possibility of CLINICAL ACADEMIC ALLERGIST infection and should not be used as [...] GO, CHM7, IPB, CKB, TRIG, LDO #### [facility] (DEFAULT) [address] [place] [address] PHOSPHATE, INORGANICon 05-05 Phosphorous 3.8 mg/dL Normal 2.2-4.6 [facility] Comment on above: Performed By: #### M GO, CHM7, IPB, CKB, TRIG, LDO #### [facility] (DEFAULT) [address] [place] [address] Phosphorous 3.8 mg/dL Normal 2.2-4.6 [facility] Comment on above: Performed By: #### M GO, CHM7, IPB, CKB, TRIG, LDO #### [facility] (DEFAULT) [address] [place] [address] POTASSIUMon 05-05-2024 Potassium [Moles/Vol] 4.2 mmol/L Normal 3.5-5.0 [facility] Comment on above: Performed By: #### M GO, CHM7, IPB, CKB, TRIG, LDO #### [facility] (DEFAULT) [address] [place] [address]10 PROTEIN & GLUCOSE, CSFon CSF Glucose 56 mg/dL Normal 40-70 [facility] Comment on above: Performed By: #### M OMER, CHM7, IPB, CKB, TRIG, LDO #### [facility] (DEFAULT) [address] [place] [address]109 CSF Protein 33 mg/dL Normal 15-45 [facility] Comment on above: Performed By: #### M OMER, CHM7, IPB, CKB, TRIG, LDO #### [facility] (DEFAULT) [address] [place] [address] SCREEN: MRSA/MSSAon 05-05-19 25 Methicillin Resistant S. Aureus By Pcr Negative Normal Negative [facility] Comment on above: Order Comment: Colle [...] by the Clinical Microbiology Laboratory at The [facility]. It has not been cleared or approved by the FDA.The laboratory is regulated under CLIA as qualified to perform high-complexity testing. This test is used for clinical purposes. It should not be regarded as investigational or for research. Performed By: #### M GO, CHM7, IPB, CKB, TRIG, LDO #### [facility] (DEFAULT) [address] [place] [address] Staphylococcus Aureus By Pcr Negative Normal Negative [facility] Comment on above: Order Comment: Colle [...] by the Clinical Microbiology Laboratory at [facility]. It has not been cleared or approved by the FDA.The laboratory is regulated under CLIA as qualified to perform high-complexity testing. This test is used for clinical purposes. It should not be regarded as investigational or for research. Performed By: #### M GO, CHM7, IPB, CKB, TRIG, LDO #### [facility] (DEFAULT) [address] [place] [address] 07920 T4 FREEon 05-05-2024 Free T4 [Mass/Vol] 1.49 ng/dL Normal 0.89-1.76 [facility] Comment on above: Performed By: #### M OMER, CHM7, IPB, CKB, TRIG, LDO #### [facility] (DEFAULT) [address] [place] [address] 31857 TRIGLYCERIDEon 05-05-2024 Triglyceride [Mass/Vol] 113 mg/dL Normal <150 [facility] Comment on above: Order Comment: While on Propofol. Result Comment: [<15 0 mg/dL: Desirable] [150-199 mg/dL: Borderline] [200-499 mg/dL: High] [>500 mg/dL: Very High] Performed By: #### M OMER, CHM7, IPB, CKB, TRIG, LDO #### [facility] (DEFAULT) [address] [place] [address] 19507 TSH W/FT4 REFLEXon TSH 12.332 uIU/mL High 0.550-4.78 0 [facility] Comment on above: Performed By: #### M GO, CHM7, IPB, CKB, TRIG, LDO #### [facility] (DEFAULT) [address] [place] [address] 32334 VANCOMYCIN LEVEL, RANDOMon 0 05-05-2024 Vancomycin 21.7 mcg/mL High Peak: 20.0-40.0 mcg/mL, Trough: 10.0-20.0 mcg/mL [facility] Comment on above: Order Comment: While on Propofol. Performed By: #### M GO, CHM7, IPB, CKB, TRIG, LDO #### [facility] (DEFAULT) [address] [place] [address] VITAMIN D (25-HYDROXY,TOTAL) on 05-05-2024 25-OH Vitamin D Total 17.6 ng/mL Low 30.0-100.0 [facility] Comment on above: Order Comment: Vitam in D values have been shown to be falsely decreased in lipemic samples and should be interpreted with caution. Result Comment: <10 Deficiency 10-29 Insufficiency 30-100 Optimal Level >100 Possible Toxicity Performed By: #### F CRAG #### [facility] (DEFAULT) [address] [place] [address] XR ABDOMEN 1 VIEW PORTABLEon 05-05-2024 XR [...] Similar visualized dilated small bowel loops. Normal [facility] XR CHEST 1 VIEW PORTABLEon 0 [...] have reviewed and approved this report. Normal [facility] XR CHEST 1 VIEW PORTABLE EXAM: [...] have reviewed and approved this report. Normal [facility] ABORH TYPE RECONFIRMATIONon 05-04-2024 ABO/RH(D) TYPE AB POS Normal [facility] Comment on above: Result Comment: @ 23:40 by EKN: Performed By: #### T YPEC #### [facility] (DEFAULT) [address] [place] [address] AMMONIAon 05-04-2024 Ammonia (P) [Moles/Vol] 31 umol/L Normal 6-47 [facility] Comment on above: Performed By: #### M GO, CHM7, IPB, CKB, TRIG, LDO #### [facility] (DEFAULT) [address] [address] Absolute neutrophil countOrd ered By: Ralph Haynes on 05-04-2024 Absolute neutrophil count 9.8 X10^3/uL High 2.0-7.7 [facility] Ammoniaon 05-04-2024 Ammonia (P) [Moles/Vol] 20.0 umol/L Normal 11-32 [facility] Comment on above: Performed By: #### L 503.5510, L501.9520 ####[facility] [address] [place], [address] Arterial patency Wrist arter y --pre arterial punctureOrdered By: Adithya Harrell on 05-04-2024 Assessment of wrist artery patency prior to arterial puncture Positive [facility] BRCon 05-04-2024 RC Normal [facility] Comment on above: Result Comment: [id number] ABN RC TRANSFUSED 05/04/24 1258 Performed By: #### B RC, BTS ####[facility] [address] [place], [address] Base excess Calc (BldV) [Mol es/Vol]Ordered By: Adithya Harrell on 05-04-2024 Blood base excess determination 0 mmol/L -2-2 [facility] Basic Metabolic Profile (BMP )on 05-04-2024 BUN/CRE 15.6 RATIO Normal 10-20 [facility] Comment on above: Performed By: #### L 500.2500, L100.0100 ####[facility] [address] [place], [address] CA,Total 7.5 mg/dL Low 8.5-10.1 [facility] Comment on above: Performed By: #### L 500.2500, L100.0100 ####[facility] [address] [place], [address] Chloride [Moles/Vol] 106 mmol/L Normal 98-107 [facility] Comment on above: Performed By: #### L 500.2500, L100.0100 ####[facility] [address] [place], [address] CO2 [Moles/Vol] 23.0 mmol/L Normal 21.0-32.0 [facility] Comment on above: Performed By: #### L 500.2500, L100.0100 ####[facility] [address] [place], [address] Creatinine [Mass/Vol] 2.88 mg/dL High 0.55-1.02 [facility] Comment on above: Result Comment: The validity of the calculated GFR GFRAA in patients over70 years has not been determined. Clinical correlation isessential. Performed By: #### L 500.2500, L100.0100 ####[facility] [address] [place], [address] ECRCL 17.75 ml/min Normal [facility] Comment on above: Performed By: #### L 500.2500, L100.0100 ####[facility] [address] [place], [address] EST GFR - AA 20 mL/min Low >60 [facility] Comment on above: Result Comment: Afri can [place] Islander GFR Calc Performed By: #### L 500.2500, L100.0100 ####[facility] [address] [place], [address] GAP 9 Normal 5-15 [facility] Comment on above: Performed By: #### L 500.2500, L100.0100 ####[facility] [address] [place], [address] GFR/1.73 sq M.predicted among non-blacks MDRD (S/P/Bld) [Vol rate/Area] 17 mL/min/{1.73_m2} Low >60 [facility] Comment on above: Result Comment: Non- GFR Calc Performed By: #### L 500.2500, L100.0100 ####[facility] [address] [place], [address] Glucose [Mass/Vol] 104 mg/dL Normal 74-106 [facility] Comment on above: Result Comment: Fast ing Glucose result from 100 to 125 mg/dLsuggests IMPAIRED HOMEOSTASIS per A.D.A. criteria. Performed By: #### L 500.2500, L100.0100 ####[facility] [address] [place], [address] Potassium [Moles/Vol] 3.9 mmol/L Normal 3.5-5.1 [facility] Comment on above: Performed By: #### L 500.2500, L100.0100 ####[facility] [address] [place], [address] Sodium [Moles/Vol] 139 mmol/L Normal 136-145 [facility] Comment on above: Performed By: #### L 500.2500, L100.0100 ####[facility] [address] [place], [address] Urea nitrogen [Mass/Vol] 45 mg/dL High 7-18 [facility] Comment on above: Performed By: #### L 500.2500, L100.0100 ####[facility] [address] [place], [address] Basophil percentageOrdered B y: Ralph Haynes on 05-04-2024 Basophil percentage 0.3 % 0-1 [facility] Blood Gases by CPSon 025 ALMA DELIA TEST Positive Normal [facility] Comment on above: Performed By: #### L 9000.0800 ####[facility] [address] [place], [address] Base excess Calc (Bld) [Moles/Vol] 0 mmol/L Normal -2 to +2 [facility] Comment on above: Performed By: #### L 9000.0800 ####[facility] [address] [place], [address] Blood Gas Type ART Normal [facility] Comment on above: Performed By: #### L 9000.0800 ####[facility] [address] [place], [address] CO2 [Moles/Vol] 24 mmol/L Normal [facility] Comment on above: Performed By: #### L 9000.0800 ####[facility] [address] [place], [address] FI02 25.0 Normal [facility] Comment on above: Performed By: #### L 9000.0800 ####[facility] [address] [place], [address] HCO3 (Bld) [Moles/Vol] 22.8 mmol/L Normal 22-26 [facility] Comment on above: Performed By: #### L 9000.0800 ####[facility] [address] [place], [address] Mode AC/PC Normal [facility] Comment on above: Performed By: #### L 9000.0800 ####[facility] [address] [place], [address] O2 Delivery Dev Adult Vent Normal [facility] Comment on above: Performed By: #### L 9000.0800 ####[facility] [address] [place], [address] pCO2 26.4 mmHg Low 35-45 [facility] Comment on above: Performed By: #### L 9000.0800 ####[facility] [address] [place], [address] PEEP 5 Normal [facility] Comment on above: Performed By: #### L 9000.0800 ####[facility] [address] [place], [address] pH (Bld) 7.54 [pH] High 7.35-7.45 [facility] Comment on above: Performed By: #### L 9000.0800 ####[facility] [address] [place], [address] PIP 20 Normal [facility] Comment on above: Performed By: #### L 9000.0800 ####[facility] [address] [place], [address] PO2 78 mmHG Normal 75-100 [facility] Comment on above: Performed By: #### L 9000.0800 ####[facility] [address] [place], [address] RR 14 Normal [facility] Comment on above: Performed By: #### L 9000.0800 ####[facility] [address] [place], [address] SITE L Radial Normal [facility] Comment on above: Performed By: #### L 9000.0800 ####[facility] [address] [place], [address] SO2 97 Normal 95-99 [facility] Comment on above: Performed By: #### L 9000.0800 ####[facility] [address] [place], [address] Blood bicarbonate measuremen tOrdered By: Adithya Harrell on 05-04-2024 Blood bicarbonate measurement 22.8 mmol/L 22- [facility] Blood urea nitrogen (BUN)/cr eatinine ratioOrdered By: Ralph Haynes on 05-04-2024 Blood urea nitrogen (BUN)/creatinine ratio 15.6 RATIO 10-20 [facility] RAPHAEL AURIS SCREEN BY PCRo n 05-04-2024 Raphael auris Screen by PCR Not detected Normal Not Detected [facility] Comment on above: Order Comment: This test was performed using a real-time PCR assay. This test was developed, and its performance characteristics determined by The [facility]biology Laboratory at [facility]. It has not been cleared or approved by the FDA. The laboratory is regulated under CLIA as qualified to perform high-complexity testing. This test is used for clinical purposes. It should not be regarded as investigational or for research. Performed By: #### M GO, CHM7, IPB, CKB, TRIG, LDO #### [facility] (DEFAULT) [address] [address] CBC AND ELECTRONIC DIFFon Hematocrit (Bld) [Volume fraction] 24.7 % Low 34.9-44.3 [facility] Comment on above: Performed By: #### R ES #### [facility] (DEFAULT) [address] [address] Hemoglobin (Bld) [Mass/Vol] 7.9 g/dL Low 11.4-15.2 [facility] Comment on above: Performed By: #### R ES #### [facility] (DEFAULT) [address] [address] MCV (RBC) [Entitic vol] 98.8 fL High 79.6-97.7 [facility] Comment on above: Performed By: #### R ES #### [facility] (DEFAULT) [address] [address] Mean Cell Hgb 31.6 pg Normal 25.9-33.9 [facility] Comment on above: Performed By: #### R ES #### [facility] (DEFAULT) [address] [address] Mean Cell Hgb Conc 32.0 g/dL Normal 31.4-35.9 [facility] Comment on above: Performed By: #### R ES #### [facility] (DEFAULT) [address] [address] Mean Platelet Volume Normal [facility] Comment on above: Result Comment: Not measured Performed By: #### R ES #### [facility] (DEFAULT) [address] [place] [address] Platelets (Bld) [#/Vol] 96 10*3/uL Low 150-393 [facility] Comment on above: Result Comment: This is an appended report. These results have been appended to a previously preliminary verified report. Performed By: #### R ES #### [facility] (DEFAULT) [address] [place] [address] RBC (Bld) [#/Vol] 2.50 10*6/uL Low 3.91-5.04 [facility] Comment on above: Performed By: #### R ES #### [facility] (DEFAULT) [address] [place] [address] RBC Distribution 16.7 % High 10.8-14.9 [facility] Comment on above: Performed By: #### R ES #### [facility] (DEFAULT) [address] [place] [address] WBC (Bld) [#/Vol] 17.39 10*3/uL High 3.99-11.19 [facility] Comment on above: Result Comment: This is an appended report. These results have been appended to a previously preliminary verified report. Performed By: #### R ES #### [facility] (DEFAULT) [address] [place] [address] CBC W/Diff, Automatedon 04-07 PLT EST SLT DEC Normal ADEQ [facility] Comment on above: Performed By: #### L 500.2500, L100.0100 ####[facility] [address] [facility] [place], [place], [address] STOMATOCYTE 1+ Normal [facility] Comment on above: Performed By: #### L 500.2500, L100.0100 ####[facility] [address] [facility] [place], [place], [address] TARGET CELLS 1+ Normal [facility] Comment on above: Performed By: #### L 500.2500, L100.0100 ####[facility] [address] [place], [place], [address] CHEM 7 (LYTES,BUN,CREA,GLUC) on 05-04-2024 Anion gap [Moles/Vol] 14 mmol/L Normal 7-17 [facility] Comment on above: Performed By: #### R ES #### [facility] (DEFAULT) [address] [place] [address] Chloride [Moles/Vol] 104 mmol/L Normal 98-108 [facility] Comment on above: Performed By: #### R ES #### [facility] (DEFAULT) [address] [place] [address] CO2 [Moles/Vol] 22 mmol/L Normal 21-31 [facility] Comment on above: Performed By: #### R ES #### [facility] (DEFAULT) [address] [place] [address] Creatinine [Mass/Vol] 3.28 mg/dL High 0.50-1.20 [facility] Comment on above: Performed By: #### R ES #### [facility] (DEFAULT) [address] [place] [address] GFR/1.73 sq M.predicted among non-blacks MDRD (S/P/Bld) [Vol rate/Area] 14 mL/min/{1.73_m2} Low >=60 [facility] Comment on above: Result Comment: Repo rted eGFR is based on the CKD-EPI 2020 equation using creatinine, age, and sex. Performed By: #### R ES #### [facility] (DEFAULT) [address] [place] [address] Glucose [Mass/Vol] 105 mg/dL High 70-99 [facility] Comment on above: Performed By: #### R ES #### [facility] (DEFAULT) [address] [place] [address] Osmolality [Osmolality] 298 mosm/kg Normal 278-305 [facility] Comment on above: Performed By: #### R ES #### [facility] (DEFAULT) [address] [place] [address] Potassium [Moles/Vol] 4.5 mmol/L Normal 3.5-5.0 [facility] Comment on above: Performed By: #### R ES #### [facility] (DEFAULT) [address] [place] [address] Sodium [Moles/Vol] 135 mmol/L Normal 135-145 [facility] Comment on above: Performed By: #### R ES #### [facility] (DEFAULT) [address] [place] [address] Urea nitrogen [Mass/Vol] 49 mg/dL High 7-25 [facility] Comment on above: Performed By: #### R ES #### [facility] (DEFAULT) [address] [place] [address] Urea nitrogen/Creatinine [Mass ratio] 15 mg/mg Normal [facility] Comment on above: Performed By: #### R ES #### [facility] (DEFAULT) [address] [place] [address] Calcium [Mass/Vol]Ordered By : Ralph Haynes on 05-04-2024 Serum or plasma calcium measurement (mass/volume) 7.5 mg/dL Low 8.5-10.1 [facility] Carbon dioxide measurementOr dered By: Ralph Haynes on 05-04-2024 Carbon dioxide measurement 23.0 mmol/L 21.0-32.0 [facility] Chloride measurementOrdered By: Ralph Haynes on 05-04-2024 Chloride measurement 106 mmol/L 98-107 [facility] Creatinine [Mass/Vol]Ordered By: Ralph Haynes on 05-04-2024 Serum or plasma creatinine measurement (mass/volume) 2.88 mg/dL High 0.55-1.02 [facility] Determination of fraction of inspired oxygenOrdered By: Adithya Harrell on 05-04-2024 Determination of fraction of inspired oxygen 25.0 [facility] Eosinophil percentageOrdered By: Ralph Haynes on 05-04-2024 Eosinophil percentage 1.3 % 0-5 [facility] Erythrocyte distribution wid th (RBC) [Ratio]Ordered By: Ralph Haynes on 05-04-2024 Erythrocyte distribution width ratio 16.3 % High 11.6-14.6 [facility] Erythrocyte distribution width standard deviation 57.5 fl High 35.1-43.9 [facility] Estimated glomerular filtrat ion rate (GFR) AmericanOrdered By: Ralph Haynes on 05-04-2024 Estimated glomerular filtration rate (GFR) 20 mL/min Low >60 [facility] Estimation of creatinine jackie aranceOrdered By: Ralph Haynes on 05-04-2024 Estimation of creatinine clearance 17.75 ml/min [facility] Glomerular filtration rate ( GFR) estimationOrdered By: Ralph Haynes on 05-04-2024 Glomerular filtration rate (GFR) estimation 17 mL/min Low >60 [facility] Glucose measurementOrdered B y: Ralph Haynes on 05-04-2024 Glucose measurement 104 mg/dL 74-106 [facility] HEPATIC FUNCTION PANELon Albumin [Mass/Vol] 2.4 g/dL Low 3.5-5.0 [facility] Comment on above: Performed By: #### R ES #### [facility] (DEFAULT) [address] [place] [address] ALP [Catalytic activity/Vol] 84 U/L Normal 32-126 [facility] Comment on above: Performed By: #### R ES #### [facility] (DEFAULT) [address] [place] [address] ALT [Catalytic activity/Vol] 11 U/L Normal 9-48 [facility] Comment on above: Performed By: #### R ES #### [facility] (DEFAULT) [address] [place] [address] AST [Catalytic activity/Vol] 23 U/L Normal 10-39 [facility] Comment on above: Performed By: #### R ES #### [facility] (DEFAULT) [address] [place] [address] Bilirubin [Mass/Vol] 0.5 mg/dL Normal <1.5 [facility] Comment on above: Performed By: #### R ES #### [facility] (DEFAULT) [address] [place] [address] Bilirubin.indirect [Mass/Vol] 0.1 mg/dL Normal <0.3 [facility] Comment on above: Performed By: #### R ES #### [facility] (DEFAULT) [address] [address] Protein [Mass/Vol] 4.6 g/dL Low 6.4-8.3 [facility] Comment on above: Performed By: #### R ES #### [facility] (DEFAULT) [address] [address] HH, Hemoglobin AND Hematocri ton 05-04-2024 Hematocrit (Bld) [Volume fraction] 23.2 % Low 37-47 [facility] Comment on above: Performed By: #### L 100.0600 ####[facility] [address] [facility] [place], [address] Hemoglobin (Bld) [Mass/Vol] 7.6 g/dL Low 12.0-15.0 [facility] Comment on above: Performed By: #### L 100.0600 ####[facility] [address] [facility] [place], [address] Hematocrit (Bld) [Volume fraction] 19.7 % Low 37-47 [facility] Comment on above: Order Comment: Comme nts: Post Transfusion Performed By: #### L 100.0600 ####[facility] [address] [facility] [place], [address] Hemoglobin (Bld) [Mass/Vol] 6.4 g/dL Low 12.0-15.0 [facility] Comment on above: Order Comment: Comme nts: Post Transfusion Performed By: #### L 100.0600 ####[facility] [address] [place], [address] Hematocrit Auto (Bld) [Volum e fraction]Ordered By: Edgar Davies on 05-04-2024 Automated blood hematocrit (percentage) 23.2 % Low 37-47 [facility] Hemoglobin measurementOrdere d By: Edgar Davies on 05-04-2024 Hemoglobin measurement 7.6 g/dL Low 12.0-15.0 [facility] INFLUENZA A/B, RSV BY PCRon 05-04-2024 Influenza A - Pcr Not detected Normal Not Detected [facility] Comment on above: Order Comment: Viral [...] CHM7, IPB, CKB, TRIG, LDO #### [facility] (DEFAULT) [address] [address] Influenza B - Pcr Not detected Normal Not Detected [facility] Comment on above: Order Comment: Viral [...] CHM7, IPB, CKB, TRIG, LDO #### [facility] (DEFAULT) [address] [place] [address] Rsv - Pcr Not detected Normal Not Detected [facility] Comment on above: Order Comment: Viral [...] CHM7, IPB, CKB, TRIG, LDO #### [facility] (DEFAULT) [address] [place] [address] IONIZED CALCIUM, WHOLE BLOOD on 05-04-2024 ICA 3.97 mg/dL Low 4.60-5.30 [facility] Comment on above: Performed By: #### M GO, CHM7, IPB, CKB, TRIG, LDO #### [facility] (DEFAULT) [address] [place] [address] Immature granulocytes/100 WB C Auto (Bld)Ordered By: Ralph Haynes on 05-04-2024 Automated immature granulocyte percentage 4.700 % High 0.0-0.9 [facility] Lymphocytes Auto (Unsp spec) [#/Vol]Ordered By: Ralph Haynes on 05-04-2024 Absolute lymphocyte count 2.03 X10^3/uL 0.83-4.51 [facility] Lymphocytes/100 WBC Auto (Un sp spec)Ordered By: Ralph Haynes on 05-04-2024 Automated lymphocyte count as percentage of total leukocytes 14.6 % Low 19-41 [facility] MAGNESIUMon 05-04-2024 Magnesium [Mass/Vol] 1.5 mg/dL Low 1.6-2.6 [facility] Comment on above: Performed By: #### R ES #### [facility] (DEFAULT) [address] [place] [address] MCV (RBC) [Entitic vol]Order ed By: Ralph Haynes on 05-04-2024 MCV (mean corpuscular volume) determination 96.4 fL 81-99 [facility] MR/CON.PCM.NEon 05-04-2024 MR/CON.PCM.NE Normal [facility] Mean corpuscular hemoglobin (MCH) determinationOrdered By: Ralph Haynes on 05-04-2024 Mean corpuscular hemoglobin (MCH) determination 32.3 pg High 27.0-32.0 [facility] Mean corpuscular hemoglobin concentration (MCHC) determinationOrdered By: Ralph Haynes on 05-04-2024 Mean corpuscular hemoglobin concentration (MCHC) determination 33.5 g/dL 32-36 [facility] Mean platelet volume determi nationOrdered By: Ralph Haynes on 05-04-2024 Mean platelet volume determination 11.6 fl 6.2-12.0 [facility] Monocyte percentageOrdered B y: Ralph Haynes on 05-04-2024 Monocyte percentage 8.2 % 0-10 [facility] Neutrophil percentageOrdered By: Ralph Haynes on 05-04-2024 Neutrophil percentage 70.9 % High 47-70 [facility] No Panel InformationOrdered By: Adithya Harrell on 05-04-2024 ART [facility] L Radial [facility] AC/PC [facility] Adult Vent [facility] 20 [facility] 14 [facility] 5 [facility] Nucleated red blood cell per centageOrdered By: Ralph Haynes on 05-04-2024 Nucleated red blood cell percentage 1.7 % 0-5 [facility] Oxygen saturation measuremen tOrdered By: Adithya Harrell on 05-04-2024 Oxygen saturation measurement 97 % 95-99 [facility] PHOSPHATE, INORGANICon 05-04 Phosphorous 3.8 mg/dL Normal 2.2-4.6 [facility] Comment on above: Performed By: #### R ES #### [facility] (DEFAULT) [address] [place] [address] PT,INR,PTTon 05-04-2024 aPTT Coag (Bld) [Time] 32.8 s Normal 24.0-34.3 [facility] Comment on above: Performed By: #### M GO, CHM7, IPB, CKB, TRIG, LDO #### [facility] (DEFAULT) [address] [place] [address] INR Coag (PPP) [Relative time] 1.1 {INR} Normal 0.9-1.1 [facility] Comment on above: Performed By: #### M GO, CHM7, IPB, CKB, TRIG, LDO #### [facility] (DEFAULT) [address] [place] [address] PT Coag (PPP) [Time] 14.2 s Normal 11.9-14.2 [facility] Comment on above: Performed By: #### M ROXY TELLO, IPB, CKB, TRIG, LDO #### [facility] (DEFAULT) [address] [place] [address] Partial pressure of carbon d ioxide measurementOrdered By: Adithya Harrell on 05-04-2024 Partial pressure of carbon dioxide measurement 26.4 mmHg Low 35-45 [facility] Partial pressure of oxygen m easurementOrdered By: Adithya Harrell on 05-04-2024 Partial pressure of oxygen measurement 78 mmHG 75-100 [facility] Platelet countOrdered By: Roman Haynes on 05-04-2024 Platelet count 99 K/mm3 Low 150-450 [facility] Platelets LM Ql (Bld)Ordered By: Ralph Haynes on 05-04-2024 Platelet estimate SLT DEC ADEQ [facility] Potassium measurementOrdered By: Ralph Haynes on 05-04-2024 Potassium measurement 3.9 mmol/L 3.5-5.1 [facility] RBC Auto (Bld) [#/Vol]Ordere d By: Ralph Haynes on 05-04-2024 Automated blood erythrocyte count 1.95 M/mm3 Low 4.2-5.4 [facility] SCREEN: MRSA/MSSAon 05-04-19 25 Methicillin Resistant S. Aureus By Pcr Negative Normal Negative [facility] Comment on above: Order Comment: Colle [...] by the Clinical Microbiology Laboratory at [facility]. It has not been cleared or approved by the FDA.The laboratory is regulated under CLIA as qualified to perform high-complexity testing. This test is used for clinical purposes. It should not be regarded as investigational or for research. Performed By: #### M GO, CHM7, IPB, CKB, TRIG, LDO #### [facility] (DEFAULT) [address] [address] Staphylococcus Aureus By Pcr Negative Normal Negative [facility] Comment on above: Order Comment: Colle [...] by the Clinical Microbiology Laboratory at [facility]. It has not been cleared or approved by the FDA.The laboratory is regulated under CLIA as qualified to perform high-complexity testing. This test is used for clinical purposes. It should not be regarded as investigational or for research. Performed By: #### M OMER, CHM7, IPB, CKB, TRIG, LDO #### [facility] (DEFAULT) [address] [address] Serum anion gap measurementO rdered By: Ralph Haynes on 05-04-2024 Serum anion gap measurement 9 5-15 [facility] Sodium levelOrdered By: Jeovanny Haynes on 05-04-2024 Sodium level 139 mmol/L 136-145 [facility] TSH QnOrdered By: Edgar sapp on 05-04-2024 Serum or plasma thyroid stimulating hormone (TSH) measurement (units/volume) 15.400 uIU/mL High 0.358-3.74 0 [facility] TYPE AND SCREENon 05-04-2024 ABO/RH(D) TYPE AB POS Normal [facility] Comment on above: Result Comment: @ 22:49 by FT04: Performed By: #### M OMER, CHM7, IPB, CKB, TRIG, LDO #### [facility] (DEFAULT) [address] [place] [address] Outdate Specimen 05/07/2024 23:59 Normal [facility] Comment on above: Performed By: #### M GO, CHM7, IPB, CKB, TRIG, LDO #### [facility] (DEFAULT) [address] [address] Target cell detectionOrdered By: Ralph Haynes on 05-04-2024 Target cell detection 1+ [facility] Thyroid Stim Hormone (TSH)on 05-04-2024 TSH 15.400 uIU/mL High 0.358-3.74 0 [facility] Comment on above: Performed By: #### L 503.5510, L501.9520 ####[facility] [address] [place], [place], [address] Total carbon dioxide measure mentOrdered By: Adithya Harrell on 05-04-2024 Total carbon dioxide measurement 24 mmol/L [facility] Type AND Screenon ABO and Rh group Nom (Bld) Blood group AB Rh(D) positive Normal [facility] Comment on above: Order Comment: CMV N EG? NNumber of units to transfuse: 1Reason for Ordering Blood: AcuteAre the blood/blood products to be transfused? YIs the patient having/had surgery? NWhen ReadyNY Performed By: #### B RC, BTS ####[facility] [address] [place], [place], [address] URINALYSIS REFLEX TO CULTURE PERFORMABLEon 05-04-2024 Appearance (U) Turbid Abnormal Clear [facility] Comment on above: Order Comment: For i ndwelling catheters, specimen collection is acceptable on catheter day 1 and 2 only. ? Performed By: #### M GO, CHM7, IPB, CKB, TRIG, LDO #### [facility] (DEFAULT) [address] [address] Bacteria PRESENT Abnormal ABSENT [facility] Comment on above: Order Comment: For i ndwelling catheters, specimen collection is acceptable on catheter day 1 and 2 only. ? Performed By: #### M GO, CHM7, IPB, CKB, TRIG, LDO #### [facility] (DEFAULT) [address] [place] [address] Blood Urine Large Abnormal Negative [facility] Comment on above: Order Comment: For i ndwelling catheters, specimen collection is acceptable on catheter day 1 and 2 only. ? Performed By: #### M GO, CHM7, IPB, CKB, TRIG, LDO #### [facility] (DEFAULT) [address] [place] [address] Color (U) Yellow Normal Yellow [facility] Comment on above: Order Comment: For i ndwelling catheters, specimen collection is acceptable on catheter day 1 and 2 only. ? Performed By: #### M GO, CHM7, IPB, CKB, TRIG, LDO #### [facility] (DEFAULT) [address] [place] [address] Glucose Ql (U) Negative Normal Negative [facility] Comment on above: Order Comment: For i ndwelling catheters, specimen collection is acceptable on catheter day 1 and 2 only. ? Performed By: #### M GO, CHM7, IPB, CKB, TRIG, LDO #### [facility] (DEFAULT) [address] [place] [address] Ketones Ql (U) Negative Normal Negative [facility] Comment on above: Order Comment: For i ndwelling catheters, specimen collection is acceptable on catheter day 1 and 2 only. ? Performed By: #### M GO, CHM7, IPB, CKB, TRIG, LDO #### [facility] (DEFAULT) [address] [place] [address] Leukocyte esterase Test strip Ql (U) Large Abnormal Negative [facility] Comment on above: Order Comment: For i ndwelling catheters, specimen collection is acceptable on catheter day 1 and 2 only. ? Performed By: #### M GO, CHM7, IPB, CKB, TRIG, LDO #### [facility] (DEFAULT) [address] [place] [address] Mucus Ql (Urine sed) PRESENT Normal [facility] Comment on above: Order Comment: For i ndwelling catheters, specimen collection is acceptable on catheter day 1 and 2 only. ? Performed By: #### M GO, CHM7, IPB, CKB, TRIG, LDO #### [facility] (DEFAULT) [address] [place] [address] Nitrites Urine Negative Normal Negative [facility] Comment on above: Order Comment: For i ndwelling catheters, specimen collection is acceptable on catheter day 1 and 2 only. ? Performed By: #### M GO, CHM7, IPB, CKB, TRIG, LDO #### [facility] (DEFAULT) [address] [place] [address] pH (U) 5.0 [pH] Normal 5.0-7.0 [facility] Comment on above: Order Comment: For i ndwelling catheters, specimen collection is acceptable on catheter day 1 and 2 only. ? Performed By: #### M GO, CHM7, IPB, CKB, TRIG, LDO #### [facility] (DEFAULT) [address] [place] [address] Protein Urine 30 mg/dL Abnormal Negative [facility] Comment on above: Order Comment: For i ndwelling catheters, specimen collection is acceptable on catheter day 1 and 2 only. ? Performed By: #### M GO, CHM7, IPB, CKB, TRIG, LDO #### [facility] (DEFAULT) [address] [place] [address] RBC Urine 11-25 Abnormal 0-2 [facility] Comment on above: Order Comment: For i ndwelling catheters, specimen collection is acceptable on catheter day 1 and 2 only. ? Performed By: #### M GO, CHM7, IPB, CKB, TRIG, LDO #### [facility] (DEFAULT) [address] [place] [address] Specific [place] Urine 1.009 Normal 1.001 -1.03 5 [facility] Comment on above: Order Comment: For i ndwelling catheters, specimen collection is acceptable on catheter day 1 and 2 only. ? Performed By: #### M GO, CHM7, IPB, CKB, TRIG, LDO #### [facility] (DEFAULT) [address] [place] [address] Squamous/Epithelial Cells 6-10/hpf = 2+ Abnormal 0-2/hpf, 3-5/hpf = 1+ [facility] Comment on above: Order Comment: For i ndwelling catheters, specimen collection is acceptable on catheter day 1 and 2 only. ? Performed By: #### M GO, CHM7, IPB, CKB, TRIG, LDO #### [facility] (DEFAULT) [address] [place] [address] Urobilinogen Urine 0.2 E.U./dL Normal 0.2 E.U/dL, 1.0 E.U/dL [facility] Comment on above: Order Comment: For i ndwelling catheters, specimen collection is acceptable on catheter day 1 and 2 only. ? Performed By: #### M GO, CHM7, IPB, CKB, TRIG, LDO #### [facility] (DEFAULT) [address] [place] [address] WBC LM.HPF (Urine sed) [#/Area] /[HPF] Abnormal 0 - 5 [facility] Comment on above: Order Comment: For i ndwelling catheters, specimen collection is acceptable on catheter day 1 and 2 only. ? Performed By: #### M GO, CHM7, IPB, CKB, TRIG, LDO #### [facility] (DEFAULT) [address] [place] [address] URINE CULTUREon 05-04-2024 Bacteria identified Cx Nom (U) No Growth Normal [facility] Comment on above: Order Comment: For [...] CHM7, IPB, CKB, TRIG, LDO #### [facility] (DEFAULT) [address] [place] [address] Urea nitrogen [Mass/Vol]Orde red By: Ralph Haynes on 05-04-2024 Serum or plasma urea nitrogen measurement (mass/volume) 45 mg/dL High 7-18 [facility] Urine Cultureon 05-04-2024 URC Normal [facility] Comment on above: Performed By: #### M 100.2200, L400.0001 ####[facility] [address] [place], [address] VENOUS BLOOD GAS PLUS LACTAT Jose 05-04-2024 Base Excess -2.6 mmol/L Normal -3.0-3.0 [facility] Comment on above: Performed By: #### G ASVL #### [facility] (DEFAULT) [address] [place] [address] HCO3 (Bld) [Moles/Vol] 23 mmol/L Normal 22-29 [facility] Comment on above: Performed By: #### G ASVL #### [facility] (DEFAULT) [address] [place] [address] Lactate, Whole Blood 0.8 mmol/L Normal 0.5-1.6 [facility] Comment on above: Performed By: #### G ASVL #### [facility] (DEFAULT) [address] [place] [address] Oxygen saturation in Blood 74 % Normal 70-80 [facility] Comment on above: Performed By: #### G ASVL #### [facility] (DEFAULT) [address] [place] [address] pCO2, Venous 38 mm Hg Normal 36-52 [facility] Comment on above: Performed By: #### G ASVL #### [facility] (DEFAULT) [address] [place] [address] pH, Venous 7.38 Normal 7.32-7.43 [facility] Comment on above: Performed By: #### G ASVL #### [facility] (DEFAULT) [address] [address] pO2, Venous 40 mm Hg Normal [facility] Comment on above: Result Comment: Veno us pO2 is not recommended for the evaluation of oxygen status, clinical correlation is recommended. Performed By: #### G ASVL #### [facility] (DEFAULT) [address] [address] Specimen type Nom (Spec) Venous Normal [facility] Comment on above: Performed By: #### G ASVL #### [facility] (DEFAULT) [address] [address] Vancomycin [Mass/Vol]Ordered By: Edgar Davies on 05-04-2024 Serum or plasma vancomycin level (mass/volume) 17.9 ug/mL High 0.0-15.0 [facility] Vancomycin, Random Levelon 0 05-04-2024 VANCO, RANDOM 17.9 ug/mL High 0.0-15.0 [facility] Comment on above: Result Comment: VANC OMYCIN STANDARD DRUG THERAPY: CRITICAL VALUE IS > 15.0 mg/LVANCOMYCIN HIGH INTENSITY THERAPY: CRITICAL VALUE IS > 20.0 mg/LPLEASE CONTACT PHARMACY SERVICES (#2609) FOR INTERPRETATIONOF RESULTS. THIS RESULT DOES NOT REPRESENT A PEAK OR TROUGHLEVEL FOR THIS DRUG. Performed By: #### L 501.8850 ####[facility] [address] [place], [address] VANCO, RANDOM 20.6 ug/mL High 0.0-15.0 [facility] Comment on above: Result Comment: VANC OMYCIN STANDARD DRUG THERAPY: CRITICAL VALUE IS > 15.0 mg/LVANCOMYCIN HIGH INTENSITY THERAPY: CRITICAL VALUE IS > 20.0 mg/LPLEASE CONTACT PHARMACY SERVICES (#6697) FOR INTERPRETATIONOF RESULTS. THIS RESULT DOES NOT REPRESENT A PEAK OR TROUGHLEVEL FOR THIS DRUG. Performed By: #### L 501.8850 ####[facility] [address] [facility] [place], [address] Venous blood ammonia measure mentOrdered By: Edgar Davies on 05-04-2024 Venous blood ammonia measurement 20.0 umol/L -32 [facility] White blood cell (WBC) count Ordered By: Ralph Haynes on 05-04-2024 White blood cell (WBC) count 13.9 K/mm3 High 4.4-11.0 [facility] XR ABDOMEN 1 VIEW PORTABLEon [...] of small bowel may reflect ileus. Normal [facility] pH (Unsp spec)Ordered By: Arnoldo Harrell on 05-04-2024 Measurement, pH 7.54 High 7.35-7.45 [facility] Albumin [Mass/Vol]Ordered By : Qian Albrecht on 05-03-2024 Serum or plasma albumin measurement (mass/volume) 1.8 g/dL Low 3.2-5.0 [facility] Basic Metabolic Profile (BMP )on 05-03-2024 BUN/CRE 18.0 RATIO Normal 10-20 [facility] Comment on above: Performed By: #### L 501.5200, L100.0100, L501.2300, L500.2500 ####[facility] [address] [place], [address] CA,Total 7.6 mg/dL Low 8.5-10.1 [facility] Comment on above: Performed By: #### L 501.5200, L100.0100, L501.2300, L500.2500 ####[facility] [address] [place], [address] Chloride [Moles/Vol] 110 mmol/L High 98-107 [facility] Comment on above: Performed By: #### L 501.5200, L100.0100, L501.2300, L500.2500 ####[facility] [address] [place], [address] CO2 [Moles/Vol] 22.0 mmol/L Normal 21.0-32.0 [facility] Comment on above: Performed By: #### L 501.5200, L100.0100, L501.2300, L500.2500 ####[facility] [address] [place], [address] Creatinine [Mass/Vol] 3.72 mg/dL High 0.55-1.02 [facility] Comment on above: Result Comment: The validity of the calculated GFR GFRAA in patients over70 years has not been determined. Clinical correlation isessential. Performed By: #### L 501.5200, L100.0100, L501.2300, L500.2500 ####[facility] [address] [place], [address] ECRCL 13.73 ml/min Normal [facility] Comment on above: Performed By: #### L 501.5200, L100.0100, L501.2300, L500.2500 ####[facility] [address] [place], [address] EST GFR - AA 15 mL/min Low >60 [facility] Comment on above: Result Comment: Afri can [place] GFR Calc Performed By: #### L 501.5200, L100.0100, L501.2300, L500.2500 ####[facility] [address] [place], [address] GAP 9 Normal 5-15 [facility] Comment on above: Performed By: #### L 501.5200, L100.0100, L501.2300, L500.2500 ####[facility] [address] [place], [address] GFR/1.73 sq M.predicted among non-blacks MDRD (S/P/Bld) [Vol rate/Area] 12 mL/min/{1.73_m2} Low >60 [facility] Comment on above: Result Comment: Non- GFR Calc Performed By: #### L 501.5200, L100.0100, L501.2300, L500.2500 ####[facility] [address] [place], [address] Glucose [Mass/Vol] 122 mg/dL High 74-106 [facility] Comment on above: Result Comment: Fast ing Glucose result from 100 to 125 mg/dLsuggests IMPAIRED HOMEOSTASIS per A.D.A. criteria. Performed By: #### L 501.5200, L100.0100, L501.2300, L500.2500 ####[facility] [address] [place], [address] Potassium [Moles/Vol] 4.1 mmol/L Normal 3.5-5.1 [facility] Comment on above: Performed By: #### L 501.5200, L100.0100, L501.2300, L500.2500 ####[facility] [address] [place], [address] Sodium [Moles/Vol] 140 mmol/L Normal 136-145 [facility] Comment on above: Performed By: #### L 501.5200, L100.0100, L501.2300, L500.2500 ####[facility] [address] [place], [address] Urea nitrogen [Mass/Vol] 67 mg/dL High 7-18 [facility] Comment on above: Performed By: #### L 501.5200, L100.0100, L501.2300, L500.2500 ####[facility] [address] [place], [address] Kidney and Bladderon 025 Kidney and Bladder Normal [facility] Magnesiumon 05-03-2024 Magnesium [Mass/Vol] 1.6 mg/dL Normal 1.6-2.6 [facility] Comment on above: Performed By: #### L 501.5200, L100.0100, L501.2300, L500.2500 ####[facility] [address] [place], [address] Magnesium measurementOrdered By: Ralph Haynes on 05-03-2024 Magnesium measurement 1.6 mg/dL 1.6-2.6 [facility] Manual differential comment Janes (Bld) [Interp]Ordered By: Ralph Haynes on 05-03-2024 Blood manual differential comment interpretation (narrative result) SCANNED [facility] Pathologist review Janes (Unsp spec) [Interp]Ordered By: Ralph Haynes on 05-03-2024 Review by pathologist Reviewed [facility] Phosphoruson 05-03-2024 Phosphate [Mass/Vol] 3.5 mg/dL Normal 2.5-4.9 [facility] Comment on above: Performed By: #### L 501.5200, L100.0100, L501.2300, L500.2500 ####[facility] [address] [place], [address] Phosphorus measurementOrdere d By: Qian Albrecht on 05-03-2024 Phosphorus measurement 2.4 mg/dL Low 2.5-4.9 [facility] Renal Profileon 05-03-2024 Albumin [Mass/Vol] 1.8 g/dL Low 3.2-5.0 [facility] Comment on above: Performed By: #### L 500.3600 ####[facility] [address] [place], [address] BUN/CRE 17.0 RATIO Normal 10-20 [facility] Comment on above: Performed By: #### L 500.3600 ####[facility] [address] [place], [address] CA,Total 7.9 mg/dL Low 8.5-10.1 [facility] Comment on above: Performed By: #### L 500.3600 ####[facility] [address] [place], [address] Chloride [Moles/Vol] 106 mmol/L Normal 98-107 [facility] Comment on above: Performed By: #### L 500.3600 ####[facility] [address] [place], [address] CO2 [Moles/Vol] 24.0 mmol/L Normal 21.0-32.0 [facility] Comment on above: Performed By: #### L 500.3600 ####[facility] [address] [place], [address] Creatinine [Mass/Vol] 2.35 mg/dL High 0.55-1.02 [facility] Comment on above: Result Comment: The validity of the calculated GFR GFRAA in patients over70 years has not been determined. Clinical correlation isessential. Performed By: #### L 500.3600 ####[facility] [address] [place], [address] ECRCL 21.74 ml/min Normal [facility] Comment on above: Performed By: #### L 500.3600 ####[facility] [address] [place], [address] EST GFR - AA 26 mL/min Low >60 [facility] Comment on above: Result Comment: Afri can [place] GFR Calc Performed By: #### L 500.3600 ####[facility] [address] [place], [address] GFR/1.73 sq M.predicted among non-blacks MDRD (S/P/Bld) [Vol rate/Area] 21 mL/min/{1.73_m2} Low >60 [facility] Comment on above: Result Comment: Non- GFR Calc Performed By: #### L 500.3600 ####[facility] [address] [place], [address] Glucose [Mass/Vol] 105 mg/dL Normal 74-106 [facility] Comment on above: Result Comment: Fast ing Glucose result from 100 to 125 mg/dLsuggests IMPAIRED HOMEOSTASIS per A.D.A. criteria. Performed By: #### L 500.3600 ####[facility] [address] [place], [address] Phosphate [Mass/Vol] 2.4 mg/dL Low 2.5-4.9 [facility] Comment on above: Performed By: #### L 500.3600 ####[facility] [address] [place], [address] Potassium [Moles/Vol] 4.0 mmol/L Normal 3.5-5.1 [facility] Comment on above: Performed By: #### L 500.3600 ####[facility] [address] [place], [address] Sodium [Moles/Vol] 139 mmol/L Normal 136-145 [facility] Comment on above: Performed By: #### L 500.3600 ####[facility] [address] [place], [address] Urea nitrogen [Mass/Vol] 40 mg/dL High 7-18 [facility] Comment on above: Performed By: #### L 500.3600 ####[facility] [address] [place], [address] Albumin [Mass/Vol] 1.8 g/dL Low 3.2-5.0 [facility] Comment on above: Performed By: #### L 500.3600 ####[facility] [address] [place], [address] BUN/CRE 18.0 RATIO Normal 10-20 [facility] Comment on above: Performed By: #### L 500.3600 ####[facility] [address] [place], [address] CA,Total 7.7 mg/dL Low 8.5-10.1 [facility] Comment on above: Performed By: #### L 500.3600 ####[facility] [address] [place], [address] Chloride [Moles/Vol] 109 mmol/L High 98-107 [facility] Comment on above: Performed By: #### L 500.3600 ####[facility] [address] [place], [address] CO2 [Moles/Vol] 22.0 mmol/L Normal 21.0-32.0 [facility] Comment on above: Performed By: #### L 500.3600 ####[facility] [address] [place], [address] Creatinine [Mass/Vol] 3.11 mg/dL High 0.55-1.02 [facility] Comment on above: Result Comment: The validity of the calculated GFR GFRAA in patients over70 years has not been determined. Clinical correlation isessential. Performed By: #### L 500.3600 ####[facility] [address] [place], [address] ECRCL 16.43 ml/min Normal [facility] Comment on above: Performed By: #### L 500.3600 ####[facility] [address] [place], [address] EST GFR - AA 18 mL/min Low >60 [facility] Comment on above: Result Comment: Afri can [place] GFR Calc Performed By: #### L 500.3600 ####[facility] [address] [place], [address] GFR/1.73 sq M.predicted among non-blacks MDRD (S/P/Bld) [Vol rate/Area] 15 mL/min/{1.73_m2} Low >60 [facility] Comment on above: Result Comment: Non- GFR Calc Performed By: #### L 500.3600 ####[facility] [address] [place], [address] Glucose [Mass/Vol] 111 mg/dL High 74-106 [facility] Comment on above: Result Comment: Fast ing Glucose result from 100 to 125 mg/dLsuggests IMPAIRED HOMEOSTASIS per A.D.A. criteria. Performed By: #### L 500.3600 ####[facility] [address] [place], [address] Phosphate [Mass/Vol] 3.2 mg/dL Normal 2.5-4.9 [facility] Comment on above: Performed By: #### L 500.3600 ####[facility] [address] [place], [address] Potassium [Moles/Vol] 4.0 mmol/L Normal 3.5-5.1 [facility] Comment on above: Performed By: #### L 500.3600 ####[facility] [address] [place], [address] Sodium [Moles/Vol] 140 mmol/L Normal 136-145 [facility] Comment on above: Performed By: #### L 500.3600 ####[facility] [address] [place], [address] Urea nitrogen [Mass/Vol] 56 mg/dL High 7-18 [facility] Comment on above: Performed By: #### L 500.3600 ####[facility] [address] [place], [address] Albumin [Mass/Vol] 2.0 g/dL Low 3.2-5.0 [facility] Comment on above: Performed By: #### L 500.3600 ####[facility] [address] [place], [address] BUN/CRE 18.2 RATIO Normal 10-20 [facility] Comment on above: Performed By: #### L 500.3600 ####[facility] [address] [place], [address] CA,Total 7.6 mg/dL Low 8.5-10.1 [facility] Comment on above: Performed By: #### L 500.3600 ####[facility] [address] [place], [address] Chloride [Moles/Vol] 110 mmol/L High 98-107 [facility] Comment on above: Performed By: #### L 500.3600 ####[facility] [address] [place], [address] CO2 [Moles/Vol] 21.0 mmol/L Normal 21.0-32.0 [facility] Comment on above: Performed By: #### L 500.3600 ####[facility] [address] [place], [address] Creatinine [Mass/Vol] 3.69 mg/dL High 0.55-1.02 [facility] Comment on above: Result Comment: The validity of the calculated GFR GFRAA in patients over70 years has not been determined. Clinical correlation isessential. Performed By: #### L 500.3600 ####[facility] [address] [place], [address] ECRCL 13.84 ml/min Normal [facility] Comment on above: Performed By: #### L 500.3600 ####[facility] [address] [place], [address] EST GFR - AA 15 mL/min Low >60 [facility] Comment on above: Result Comment: Afri can [place] GFR Calc Performed By: #### L 500.3600 ####[facility] [address] [place], [address] GFR/1.73 sq M.predicted among non-blacks MDRD (S/P/Bld) [Vol rate/Area] 13 mL/min/{1.73_m2} Low >60 [facility] Comment on above: Result Comment: Non- GFR Calc Performed By: #### L 500.3600 ####[facility] [address] [place], [address] Glucose [Mass/Vol] 120 mg/dL High 74-106 [facility] Comment on above: Result Comment: Fast ing Glucose result from 100 to 125 mg/dLsuggests IMPAIRED HOMEOSTASIS per A.D.A. criteria. Performed By: #### L 500.3600 ####[facility] [address] [place], [address] Phosphate [Mass/Vol] 3.5 mg/dL Normal 2.5-4.9 [facility] Comment on above: Performed By: #### L 500.3600 ####[facility] [address] [place], [address] Potassium [Moles/Vol] 4.1 mmol/L Normal 3.5-5.1 [facility] Comment on above: Performed By: #### L 500.3600 ####[facility] [address] [place], [address] Sodium [Moles/Vol] 140 mmol/L Normal 136-145 [facility] Comment on above: Performed By: #### L 500.3600 ####[facility] [address] [place], [address] Urea nitrogen [Mass/Vol] 67 mg/dL High 7-18 [facility] Comment on above: Performed By: #### L 500.3600 ####[facility] [address] [place], [place], [id number] Respiratory Cultureon 2024 RESPC Mixed normal respira tory gisela. No Streptococcus pneumoniae, beta-hemolytic Streptococcus or Staphylococcus aureus isolated. Normal [facility] Comment on above: Performed By: #### M 100.2000, M100.2400 ####[facility] [address] [place], [place], [id number] Vancomycin trough [Mass/Vol] Ordered By: Ralph Haynes on 05-03-2024 Serum or plasma trough vancomycin level 24.6 ug/mL High 5.0-15.0 [facility] Vancomycin, Random Levelon 0 05-03-2024 VANCO, RANDOM 20.8 ug/mL High 0.0-15.0 [facility] Comment on above: Result Comment: VANC OMYCIN STANDARD DRUG THERAPY: CRITICAL VALUE IS > 15.0 mg/LVANCOMYCIN HIGH INTENSITY THERAPY: CRITICAL VALUE IS > 20.0 mg/LPLEASE CONTACT PHARMACY SERVICES (#8351) FOR INTERPRETATIONOF RESULTS. THIS RESULT DOES NOT REPRESENT A PEAK OR TROUGHLEVEL FOR THIS DRUG. Performed By: #### L 501.8850 ####[facility] [address] [place], [address] VANCO, RANDOM 26.5 ug/mL High 0.0-15.0 [facility] Comment on above: Result Comment: VANC OMYCIN STANDARD DRUG THERAPY: CRITICAL VALUE IS > 15.0 mg/LVANCOMYCIN HIGH INTENSITY THERAPY: CRITICAL VALUE IS > 20.0 mg/LPLEASE CONTACT PHARMACY SERVICES (#8339) FOR INTERPRETATIONOF RESULTS. THIS RESULT DOES NOT REPRESENT A PEAK OR TROUGHLEVEL FOR THIS DRUG. Performed By: #### L 501.8850 ####[facility] [address] [place], [place], [address] Vancomycin, Trough Levelon 0 05-03-2024 VANCO, TROUGH 24.6 ug/mL High 5.0-15.0 [facility] Comment on above: Order Comment: Comme nts: DRAW 30 MIN PRIOR TO [id number] Result Comment: VANC OMYCIN STANDARED DRUG THERAPY TROUGH LEVEL: 5.0 - 15.0 mg/LVANCOMYCIN HIGH INTENSITY THERAPY TROUGH LEVEL: 15.0 - 20.0 mg/LHigh Intensity therapy recommended for serious lifethreatening infections include:- Jzdgkcdkzl-Pdythycitfcm-Gtgiwjmtq (Ventilator/Healtcare Associated)-SepsisPLEASE CONTACT PHARMACY SERVICES (#0682) FOR INTERPRETATIONOF RESULTS. Performed By: #### L 501.8820 ####[facility] [address] [place], [address] 12 Lead EKGon 05-02-2024 12 Lead EKG Normal [facility] 12 Lead EKG Normal [facility] 12 Lead EKG Normal [facility] DELIA TEST N/A Normal [facility] Comment on above: Performed By: #### L 9000.0800 ####[facility] [address] [place], [address] Base excess Calc (Bld) [Moles/Vol] -17 mmol/L Low -2 to +2 [facility] Comment on above: Performed By: #### L 9000.0800 ####[facility] [address] [place], [address] Blood Gas Type ART Normal [facility] Comment on above: Performed By: #### L 9000.0800 ####[facility] [address] [place], [address] CO2 [Moles/Vol] 9 mmol/L Normal [facility] Comment on above: Performed By: #### L 9000.0800 ####[facility] [address] [facility] [address] FI02 21.0 [facility] Comment on above: Performed By: #### L 9000.0800 ####[facility] [address] [place], [address] HCO3 (Bld) [Moles/Vol] 8.8 mmol/L Low 22-26 [facility] Comment on above: Performed By: #### L 9000.0800 ####[facility] [address] [place], [address] Mode AC/PC Normal [facility] Comment on above: Performed By: #### L 9000.0800 ####[facility] [address] [place], [address] O2 Delivery Dev Adult Vent Normal [facility] Comment on above: Performed By: #### L 9000.0800 ####[facility] [address] [place], [address] pCO2 16.1 mmHg Invalid Interpretation Code 35-45 [facility] Comment on above: Performed By: #### L 9000.0800 ####[facility] [address] [place], [address] PEEP 5 Normal [facility] Comment on above: Performed By: #### L 9000.0800 ####[facility] [address] [place], [address] pH (Bld) 7.35 [pH] Normal 7.35-7.45 [facility] Comment on above: Performed By: #### L 9000.0800 ####[facility] [address] [place], [address] PO2 100 mmHG Normal 75-100 [facility] Comment on above: Performed By: #### L 9000.0800 ####[facility] [address] [place], [address] Read Back By Yes [facility] Comment on above: Performed By: #### L 9000.0800 ####[facility] [address] [place], [address] Gallardo [facility] Comment on above: Performed By: #### L 0.0800 ####[facility] [address] [place], [address] RR 16 Normal [facility] Comment on above: Performed By: #### L 0.0800 ####[facility] [address] [place], [address] SITE L Radial Normal [facility] Comment on above: Performed By: #### L 0.0800 ####[facility] [address] [place], [address] SO2 98 Normal 95-99 [facility] Comment on above: Performed By: #### L 0.0800 ####[facility] [address] [place], [address] Time Given 05:44:24 Normal [facility] Comment on above: Performed By: #### L 8999.0800 ####[facility] [address] [place], [address] Brain/Head without Contrasto n 05-02-2024 Brain/Head without Contrast Normal [facility] CBC W/Diff, Automatedon - Absolute Lymph 0.80 X10 3/uL Low 0.83-4.51 [facility] Comment on above: Performed By: #### L 501.2300, L501.5200, L100.0100 ####[facility] [address] [place], [address] Absolute Neut 11.5 X10 3/uL High 2.0-7.7 [facility] Comment on above: Performed By: #### L 501.2300, L501.5200, L100.0100 ####[facility] [address] [place], [address] Basophils/100 WBC (Bld) 0.1 % Normal 0-1 [facility] Comment on above: Performed By: #### L 501.2300, L501.5200, L100.0100 ####[facility] [address] [place], [address] Eosinophils/100 WBC (Bld) 0.2 % Normal 0-5 [facility] Comment on above: Performed By: #### L 501.2300, L501.5200, L100.0100 ####[facility] [address] [place], [address] Erythrocyte distribution width (RBC) [Ratio] 16.3 % High 11.6-14.6 [facility] Comment on above: Performed By: #### L 501.2300, L501.5200, L100.0100 ####[facility] [address] [place], [address] Hematocrit (Bld) [Volume fraction] 27.4 % Low 37-47 [facility] Comment on above: Performed By: #### L 501.2300, L501.5200, L100.0100 ####[facility] [address] [place], [address] Hemoglobin (Bld) [Mass/Vol] 8.7 g/dL Low 12.0-15.0 [facility] Comment on above: Performed By: #### L 501.2300, L501.5200, L100.0100 ####[facility] [address] [place], [address] IG% 0.700 Normal 0.0-0.9 [facility] Comment on above: Result Comment: IG% - Immature Granulocytes (promyelocytes, myelocytes andmetamyelocytes) > 1% indicates that a LEFT SHIFT is Present. Performed By: #### L 501.2300, L501.5200, L100.0100 ####[facility] [address] [place], [address] Lymphocytes/100 WBC (Bld) 5.8 % Low 19-41 [facility] Comment on above: Performed By: #### L 501.2300, L501.5200, L100.0100 ####[facility] [address] [place], [address] MCH (RBC) [Entitic mass] 31.8 pg Normal 27.0-32.0 [facility] Comment on above: Performed By: #### L 501.2300, L501.5200, L100.0100 ####[facility] [address] [place], [address] MCHC (RBC) [Mass/Vol] 31.8 g/dL Low 32-36 [facility] Comment on above: Performed By: #### L 501.2300, L501.5200, L100.0100 ####[facility] [address] [place], [address] MCV (RBC) [Entitic vol] 100.0 fL High 81-99 [facility] Comment on above: Performed By: #### L 501.2300, L501.5200, L100.0100 ####[facility] [address] [place], [address] Monocytes/100 WBC (Bld) 9.5 % Normal 0-10 [facility] Comment on above: Performed By: #### L 501.2300, L501.5200, L100.0100 ####[facility] [address] [place], [address] Neutrophils/100 WBC (Bld) 83.7 % High 47-70 [facility] Comment on above: Performed By: #### L 501.2300, L501.5200, L100.0100 ####[facility] [address] [place], [address] Nucleated RBC (Bld) [#/Vol] 0.5 10*3/uL Normal 0-5 [facility] Comment on above: Performed By: #### L 501.2300, L501.5200, L100.0100 ####[facility] [address] [place], [address] Platelet mean volume (Bld) [Entitic vol] 12.2 fL High 6.2-12.0 [facility] Comment on above: Performed By: #### L 501.2300, L501.5200, L100.0100 ####[facility] [address] [place], [address] Platelets (Bld) [#/Vol] 266 10*3/uL Normal 150-450 [facility] Comment on above: Performed By: #### L 501.2300, L501.5200, L100.0100 ####[facility] [address] [place], [address] RBC (Bld) [#/Vol] 2.74 10*6/uL Low 4.2-5.4 [facility] Comment on above: Performed By: #### L 501.2300, L501.5200, L100.0100 ####[facility] [address] [place], [address] RDW SD 59.3 fl High 35.1-43.9 [facility] Comment on above: Performed By: #### L 501.2300, L501.5200, L100.0100 ####[facility] [address] [place], [address] WBC (Bld) [#/Vol] 13.7 10*3/uL High 4.4-11.0 [facility] Comment on above: Performed By: #### L 501.2300, L501.5200, L100.0100 ####[facility] [address] [place], [address] CNPLuz Maria 05-02-2024 CNPN Telephone ([facility]) MARI LOPEZ ([id number]) 1940 F Date Time Provider Department 05/02/24 [facility] During your visit today, we recorded the following information about you: Olga Dillard RN 05/02/2024 9:25 AM Signed Friend (Alex) calls to let provider's office know that patient is currently at [facility] in the ICU for sepsis and [...] 24 hr tablet Take by mouth. - Bmgepcnxmyi-Eqcoswemx-Vmm C-Mn (GLUCOSAMINE CHONDROITIN MAXSTR) 500-400 mg cap Take 1 capsule by mouth three times daily. - COMPOUNDED PRESCRIPTION Stair lift - DAILY-LUISITO tablet TAKE 1 TABLET BY MOUTH ONCE DAILY. - lepfrtx-zumqapwbr-zhkkpei D3 (CALCIUM 500+D) 500 mg(1,250mg) -200 unit [...] [1003] 05/07/2005 07/12/2021 INJURY TRUNK SITE NEC [[id number]] 01/16/2006 07/01/2007 Anemia in chronic kidney disease [...] acquired [E (more content not included)... Normal [facility] CXR for Line Placementon CXR for Line Placement Normal [facility] Consultation - Nephrologyon 05-02-2024 Consultation - Nephrology Normal [facility] Gram Stainon 05-02-2024 GS Acceptable Specimen? Yes (<25 Epithelial cells per/lpf) Gram Stain 1+ Gram positive cocci 2+ White Blood Cells No Epithelial cells Normal [facility] Comment on above: Performed By: #### M 100.2000, M100.2400 ####[facility] [address] [place], [address] International normalized rat io (INR) calculationOrdered By: Qian Albrecht on 05-02-2024 International normalized ratio (INR) calculation 1.3 [facility] Magnesiumon 05-02-2024 Magnesium [Mass/Vol] 1.7 mg/dL Normal 1.6-2.6 [facility] Comment on above: Order Comment: FOR B MP SEE 0127:C87 Performed By: #### L 501.2300, L501.5200, L100.0100 ####[facility] [address] [place], [address] Magnesium [Mass/Vol] 2.2 mg/dL Normal 1.6-2.6 [facility] Comment on above: Performed By: #### L 501.2300, L501.5200 ####[facility] [address] [place], [address] No Panel InformationOrdered By: Bernarda Becerril on 05-02-2024 05:44:[address] [facility] [address] Gallardo [facility] Yes [facility] Partial Thromboplast Timeon 05-02-2024 aPTT Coag (Bld) [Time] 39.9 s High 24.1-36.2 [facility] Comment on above: Performed By: #### L 300.3900, L300.4310 ####[facility] [address] [place], [address] aPTT Coag (Bld) [Time] 30.1 s Normal 24.1-36.2 [facility] Comment on above: Performed By: #### L 300.3900, L300.4310 ####[facility] [address] [place], [address] Phosphoruson 05-02-2024 Phosphate [Mass/Vol] 7.9 mg/dL High 2.5-4.9 [facility] Comment on above: Order Comment: FOR B MP SEE 0127:C87 Performed By: #### L 501.2300, L501.5200, L100.0100 ####[facility] [address] [place], [address] Phosphate [Mass/Vol] 9.9 mg/dL Invalid Interpretation Code 2.5-4.9 [facility] Comment on above: Performed By: #### L 501.2300, L501.5200 ####[facility] [address] [place], [address] Procedure Reporton Procedure Report Normal [facility] Prothrombin Time w/INRon INR Coag (PPP) [Relative time] 1.3 {INR} Normal [facility] Comment on above: Performed By: #### L 300.3900, L300.4310 ####[facility] [address] [place], [address] PT Coag (PPP) [Time] 16.1 s High 11.7-14.9 [facility] Comment on above: Performed By: #### L 300.3900, L300.4310 ####[facility] [address] [place], [address] INR Coag (PPP) [Relative time] 1.2 {INR} Normal [facility] Comment on above: Performed By: #### L 300.3900, L300.4310 ####[facility] [address] [place], [address] PT Coag (PPP) [Time] 15.5 s High 11.7-14.9 [facility] Comment on above: Performed By: #### L 300.3900, L300.4310 ####[facility] [address] [place], [address] Prothrombin timeOrdered By: Qian Albrecht on 05-02-2024 Prothrombin time 16.1 SECONDS High 11.7-14.9 [facility] Renal Profileon 05-02-2024 Albumin [Mass/Vol] 1.8 g/dL Low 3.2-5.0 [facility] Comment on above: Performed By: #### L 500.3600 ####[facility] [address] [place], [address] BUN/CRE 19.6 RATIO Normal 10-20 [facility] Comment on above: Performed By: #### L 500.3600 ####[facility] [address] [place], [address] [place],Total 7.1 mg/dL Low 8.5-10.1 [facility] Comment on above: Performed By: #### L 500.3600 ####[facility] [address] [place], [address] Chloride [Moles/Vol] 112 mmol/L High 98-107 [facility] Comment on above: Performed By: #### L 500.3600 ####[facility] [address] [place], [address] CO2 [Moles/Vol] 19.0 mmol/L Low 21.0-32.0 [facility] Comment on above: Performed By: #### L 500.3600 ####[facility] [address] [place], [address] Creatinine [Mass/Vol] 4.91 mg/dL High 0.55-1.02 [facility] Comment on above: Result Comment: The validity of the calculated GFR GFRAA in patients over70 years has not been determined. Clinical correlation isessential. Performed By: #### L 500.3600 ####[facility] [address] [place], [address] ECRCL 10.10 ml/min Normal [facility] Comment on above: Performed By: #### L 500.3600 ####[facility] [address] [place], [address] EST GFR - AA 11 mL/min Low >60 [facility] Comment on above: Result Comment: Afri can [place]er GFR Calc Performed By: #### L 500.3600 ####[facility] [address] [place], [address] GFR/1.73 sq M.predicted among non-blacks MDRD (S/P/Bld) [Vol rate/Area] 9 mL/min/{1.73_m2} Low >60 [facility] Comment on above: Result Comment: Non- GFR Calc Performed By: #### L 500.3600 ####[facility] [address] [place], [address] Glucose [Mass/Vol] 126 mg/dL High 74-106 [facility] Comment on above: Result Comment: Fast ing Glucose result greater than or equal to 126 mg/dLsuggests DIABETES MELLITUS per A.D.A. criteria. Performed By: #### L 500.3600 ####[facility] [address] [place], [address] Phosphate [Mass/Vol] 4.5 mg/dL Normal 2.5-4.9 [facility] Comment on above: Performed By: #### L 500.3600 ####[facility] [address] [place], [address] Potassium [Moles/Vol] 3.4 mmol/L Low 3.5-5.1 [facility] Comment on above: Performed By: #### L 500.3600 ####[facility] [address] [place], [address] Sodium [Moles/Vol] 142 mmol/L Normal 136-145 [facility] Comment on above: Performed By: #### L 500.3600 ####[facility] [address] [place], [address] Urea nitrogen [Mass/Vol] 96 mg/dL High 7-18 [facility] Comment on above: Performed By: #### L 500.3600 ####[facility] [address] [place], [address] Albumin [Mass/Vol] 1.9 g/dL Low 3.2-5.0 [facility] Comment on above: Performed By: #### L 500.3600 ####[facility] [address] [place], [address] BUN/CRE 18.5 RATIO Normal 10-20 [facility] Comment on above: Performed By: #### L 500.3600 ####[facility] [address] [place], [address] CA,Total 7.0 mg/dL Low 8.5-10.1 [facility] Comment on above: Performed By: #### L 500.3600 ####[facility] [address] [place], [address] Chloride [Moles/Vol] 113 mmol/L High 98-107 [facility] Comment on above: Performed By: #### L 500.3600 ####[facility] [address] [place], [address] CO2 [Moles/Vol] 18.0 mmol/L Low 21.0-32.0 [facility] Comment on above: Performed By: #### L 500.3600 ####[facility] [address] [place], [address] Creatinine [Mass/Vol] 5.68 mg/dL High 0.55-1.02 [facility] Comment on above: Result Comment: The validity of the calculated GFR GFRAA in patients over70 years has not been determined. Clinical correlation isessential. Performed By: #### L 500.3600 ####[facility] [address] [place], [address] ECRCL 8.73 ml/min Normal [facility] Comment on above: Performed By: #### L 500.3600 ####[facility] [address] [place], [address] EST GFR - AA 9 mL/min Low >60 [facility] Comment on above: Result Comment: Afri can [place] GFR Calc Performed By: #### L 500.3600 ####[facility] [address] [place], [address] GFR/1.73 sq M.predicted among non-blacks MDRD (S/P/Bld) [Vol rate/Area] 8 mL/min/{1.73_m2} Low >60 [facility] Comment on above: Result Comment: Non- GFR Calc Performed By: #### L 500.3600 ####[facility] [address] [place], [address] Glucose [Mass/Vol] 153 mg/dL High 74-106 [facility] Comment on above: Result Comment: Fast ing Glucose result greater than or equal to 126 mg/dLsuggests DIABETES MELLITUS per A.D.A. criteria. Performed By: #### L 500.3600 ####[facility] [address] [place], [address] Phosphate [Mass/Vol] 5.1 mg/dL High 2.5-4.9 [facility] Comment on above: Performed By: #### L 500.3600 ####[facility] [address] [place], [address] Potassium [Moles/Vol] 3.6 mmol/L Normal 3.5-5.1 [facility] Comment on above: Performed By: #### L 500.3600 ####[facility] [address] [place], [address] Sodium [Moles/Vol] 142 mmol/L Normal 136-145 [facility] Comment on above: Performed By: #### L 500.3600 ####[facility] [address] [place], [address] Urea nitrogen [Mass/Vol] 105 mg/dL Invalid Interpretation Code 7-18 [facility] Comment on above: Result Comment: Crit ical Result(s) Called at: 15:14:16 05/02/2024 by: Maye Johnson RN (ICU). Results read back by same. Performed By: #### L 500.3600 ####[facility] [address] [place], [address] Albumin [Mass/Vol] 2.3 g/dL Low 3.2-5.0 [facility] Comment on above: Performed By: #### L 500.3600 ####[facility] [address] [place], [address] BUN/CRE 19.4 RATIO Normal 10-20 [facility] Comment on above: Performed By: #### L 500.3600 ####[facility] [address] [place], [address] CA,Total 7.3 mg/dL Low 8.5-10.1 [facility] Comment on above: Performed By: #### L 500.3600 ####[facility] [address] [place], [address] Chloride [Moles/Vol] 118 mmol/L High 98-107 [facility] Comment on above: Performed By: #### L 500.3600 ####[facility] [address] [place], [address] CO2 [Moles/Vol] 8.0 mmol/L Invalid Interpretation Code 21.0-32.0 [facility] Comment on above: Result Comment: Crit ical Result(s) Called at: 04:31:10 05/02/2024 by:DEEJAY SOLIMAN TO KEVIN MARIA. Results read back by same. Performed By: #### L 500.3600 ####[facility] [address] [place], [address] Creatinine [Mass/Vol] 7.23 mg/dL High 0.55-1.02 [facility] Comment on above: Result Comment: The validity of the calculated GFR GFRAA in patients over70 years has not been determined. Clinical correlation isessential. Performed By: #### L 500.3600 ####[facility] [address] [place], [address] ECRCL 6.75 ml/min Normal [facility] Comment on above: Performed By: #### L 500.3600 ####[facility] [address] [place], [address] EST GFR - AA 7 mL/min Low >60 [facility] Comment on above: Result Comment: Afri can [place] GFR Calc Performed By: #### L 500.3600 ####[facility] [address] [place], [address] GFR/1.73 sq M.predicted among non-blacks MDRD (S/P/Bld) [Vol rate/Area] 6 mL/min/{1.73_m2} Low >60 [facility] Comment on above: Result Comment: Non- GFR Calc Performed By: #### L 500.3600 ####[facility] [address] [place], [address] Glucose [Mass/Vol] 191 mg/dL High 74-106 [facility] Comment on above: Result Comment: Fast ing Glucose result greater than or equal to 126 mg/dLsuggests DIABETES MELLITUS per A.D.A. criteria. Performed By: #### L 500.3600 ####[facility] [address] [place], [address] Phosphate [Mass/Vol] 8.1 mg/dL High 2.5-4.9 [facility] Comment on above: Performed By: #### L 500.3600 ####[facility] [address] [place], [address] Potassium [Moles/Vol] 4.0 mmol/L Normal 3.5-5.1 [facility] Comment on above: Performed By: #### L 500.3600 ####[facility] [address] [place], [address] Sodium [Moles/Vol] 145 mmol/L Normal 136-145 [facility] Comment on above: Performed By: #### L 500.3600 ####[facility] [address] [place], [address] Urea nitrogen [Mass/Vol] 140 mg/dL Invalid Interpretation Code 7-18 [facility] Comment on above: Result Comment: Crit ical Result(s) Called at: 04:31:41 05/02/2024 by:DEEJAY SOLIMAN TO KEVIN MARIA. Results read back by same. Performed By: #### L 500.3600 ####[facility] [address] [place], [address] Thyroid Stim Hormone (TSH)on 05-02-2024 TSH 7.150 uIU/mL High 0.358-3.74 0 [facility] Comment on above: Performed By: #### L 501.9520 ####[facility] [address] [place], [address] Venous Blood Gason 5 HCO3 (Bld) [Moles/Vol] 4 mmol/L Low 22-26 [facility] Comment on above: Performed By: #### L 9000.0810 ####[facility] [address] [place], [place], [id number] aPTT Coag (PPP) [Time]Ordere d By: Qian Albrecht on 05-02-2024 Activated partial thromboplastin time (aPTT) in platelet poor plasma by coagulation a 39.9 Seconds High 24.1-36.2 [facility] 12 Lead EKGon 05-01-2024 12 Lead EKG Normal [facility] ALP [Catalytic activity/Vol] Ordered By: Alexisneptali Friend on 05-01-2024 Serum or plasma alkaline phosphatase measurement 97 U/L 45-117 [facility] ALT [Catalytic activity/Vol] Ordered By: Alexisneptali Friend on 05-01-2024 Serum or plasma alanine aminotransferase (ALT) measurement 18 U/L 13-56 [facility] Albumin to globulin ratioOrd ered By: Alexisneptali Friend on 05-01-2024 Albumin to globulin ratio 0.8 RATIO Low 0.9-2.4 [facility] Bacteria LM.HPF (Urine sed) [#/Area]Ordered By: Alexis Friend on 05-01-2024 Urine sediment bacteria count by microscopy (number/high power field) 3+ /hpf None Seen [facility] Base excess Calc (BldV) [Mol es/Vol]Ordered By: Alexis Friend on 05-01-2024 Venous blood base excess measurement -27 mmol/L Low -1.0-3.5 [facility] Basic Metabolic Profile (BMP )on 05-01-2024 BUN/CRE 19.3 RATIO Normal 10-20 [facility] Comment on above: Performed By: #### L 500.2500 ####[facility] [address] [facility] [place], [address] [place],Total 7.5 mg/dL Low 8.5-10.1 [facility] Comment on above: Performed By: #### L 500.2500 ####[facility] [address] [facility] [place], [place], [address] Chloride [Moles/Vol] 122 mmol/L High 98-107 [facility] Comment on above: Performed By: #### L 500.2500 ####[facility] [address] [place], [address] CO2 [Moles/Vol] 6.0 mmol/L Invalid Interpretation Code 21.0-32.0 [facility] Comment on above: Result Comment: Crit ical Result(s) Called at: 22:02:26 05/01/2024 by: CARLITOS. Results read back by Oumou PATRICK Performed By: #### L 500.2500 ####[facility] [address] [place], [address] Creatinine [Mass/Vol] 7.48 mg/dL Invalid Interpretation Code 0.55-1.02 [facility] Comment on above: Result Comment: Crit ical Result(s) Called at: 22:03:07 05/01/2024 by: CARLITOS. Results read back by EDNAThe validity of the calculated GFR GFRAA in patients over70 years has not been determined. Clinical correlation isessential. Performed By: #### L 500.2500 ####[facility] [address] [place], [address] ECRCL 6.52 ml/min Normal [facility] Comment on above: Performed By: #### L 500.2500 ####[facility] [address] [place], [address] EST GFR - AA 7 mL/min Low >60 [facility] Comment on above: Result Comment: Afri can [place] GFR Calc Performed By: #### L 500.2500 ####[facility] [address] [place], [address] GAP 15 Normal 5-15 [facility] Comment on above: Performed By: #### L 500.2500 ####[facility] [address] [place], [address] GFR/1.73 sq M.predicted among non-blacks MDRD (S/P/Bld) [Vol rate/Area] 6 mL/min/{1.73_m2} Low >60 [facility] Comment on above: Result Comment: Non- GFR Calc Performed By: #### L 500.2500 ####[facility] [address] [place], [address] Glucose [Mass/Vol] 144 mg/dL High 74-106 [facility] Comment on above: Result Comment: Fast ing Glucose result greater than or equal to 126 mg/dLsuggests DIABETES MELLITUS per A.D.A. criteria. Performed By: #### L 500.2500 ####[facility] [address] [place], [address] Potassium [Moles/Vol] 5.1 mmol/L Normal 3.5-5.1 [facility] Comment on above: Performed By: #### L 500.2500 ####[facility] [address] [place], [address] Sodium [Moles/Vol] 143 mmol/L Normal 136-145 [facility] Comment on above: Performed By: #### L 500.2500 ####[facility] [address] [place], [address] Urea nitrogen [Mass/Vol] 144 mg/dL Invalid Interpretation Code 7-18 [facility] Comment on above: Result Comment: Crit ical Result(s) Called at: 22:02:51 05/01/2024 by: CARLITOS. Results read back by Oumou PATRICK Performed By: #### L 500.2500 ####[facility] [address] [place], [address] BUN/CRE 20.2 RATIO High 10-20 [facility] Comment on above: Performed By: #### L 500.2500 ####[facility] [address] [place], [address] CA,Total 7.7 mg/dL Low 8.5-10.1 [facility] Comment on above: Performed By: #### L 500.2500 ####[facility] [address] [place], [address] Chloride [Moles/Vol] 124 mmol/L High 98-107 [facility] Comment on above: Performed By: #### L 500.2500 ####[facility] [address] [place], [address] CO2 [Moles/Vol] 5.0 mmol/L Invalid Interpretation Code 21.0-32.0 [facility] Comment on above: Result Comment: Crit ical Result(s) Called at: 16:28:22 05/01/2024 by: CARLITOS. Results read back by Ilana Alarcon Performed By: #### L 500.2500 ####[facility] [address] [place], [address] Creatinine [Mass/Vol] 7.33 mg/dL High 0.55-1.02 [facility] Comment on above: Result Comment: The validity of the calculated GFR GFRAA in patients over70 years has not been determined. Clinical correlation isessential. Performed By: #### L 500.2500 ####[facility] [address] [place], [address] ECRCL 6.59 ml/min Normal [facility] Comment on above: Performed By: #### L 500.2500 ####[facility] [address] [place], [address] EST GFR - AA 7 mL/min Low >60 [facility] Comment on above: Result Comment: Afri can [place] GFR Calc Performed By: #### L 500.2500 ####[facility] [address] [place], [address] GAP 15 Normal 5-15 [facility] Comment on above: Performed By: #### L 500.2500 ####[facility] [address] [place], [address] GFR/1.73 sq M.predicted among non-blacks MDRD (S/P/Bld) [Vol rate/Area] 6 mL/min/{1.73_m2} Low >60 [facility] Comment on above: Result Comment: Non- GFR Calc Performed By: #### L 500.2500 ####[facility] [address] [place], [place], [id number] Glucose [Mass/Vol] 82 mg/dL Normal 74-106 [facility] Comment on above: Performed By: #### L 500.2500 ####[facility] [address] [place], [address] Potassium [Moles/Vol] 5.4 mmol/L High 3.5-5.1 [facility] Comment on above: Performed By: #### L 500.2500 ####[facility] [address] [place], [address] Sodium [Moles/Vol] 144 mmol/L Normal 136-145 [facility] Comment on above: Performed By: #### L 500.2500 ####[facility] [address] [place], [address] Urea nitrogen [Mass/Vol] 148 mg/dL Invalid Interpretation Code 7-18 [facility] Comment on above: Result Comment: Crit ical Result(s) Called at: 16:28:46 05/01/2024 by: CARLITOS. Results read back by Ilana Alarcon Performed By: #### L 500.2500 ####[facility] [address] [place], [place], [address] Bilirubin Test strip Ql (U)O rdered By: Alexis Friend on 05-01-2024 Urine total bilirubin detection by test strip 1 mg/dL High Negative [facility] Bilirubin, totalOrdered By: Alexis Friend on 05-01-2024 Bilirubin, total 0.30 mg/dL 0.20-1.00 [facility] Blood Gases by CPSon 025 ALMA DELIA TEST N/A Normal [facility] Comment on above: Performed By: #### L 9000.0800 ####[facility] [address] [place], [address] Base excess Calc (Bld) [Moles/Vol] -26 mmol/L Low -2 to +2 [facility] Comment on above: Performed By: #### L 9000.0800 ####[facility] [address] [place], [address] Blood Gas Type ART Normal [facility] Comment on above: Performed By: #### L 9000.0800 ####[facility] [address] [place], [address] FI02 30.0 Normal [facility] Comment on above: Performed By: #### L 9000.0800 ####[facility] [address] [place], [address] HCO3 (Bld) [Moles/Vol] 4.0 mmol/L Low 22-26 [facility] Comment on above: Performed By: #### L 9000.0800 ####[facility] [address] [place], [address] Mode AC/PC Normal [facility] Comment on above: Performed By: #### L 9000.0800 ####[facility] [address] [place], [address] O2 Delivery Dev Adult Vent Normal [facility] Comment on above: Performed By: #### L 9000.0800 ####[facility] [address] [place], [address] pCO2 12.9 mmHg Invalid Interpretation Code 35-45 [facility] Comment on above: Performed By: #### L 9000.0800 ####[facility] [address] [place], [address] PEEP 5 Normal [facility] Comment on above: Performed By: #### L 9000.0800 ####[facility] [address] [place], [address] pH (Bld) 7.10 [pH] Invalid Interpretation Code 7.35-7.45 [facility] Comment on above: Performed By: #### L 9000.0800 ####[facility] [address] [place], [address] PO2 144 mmHG High 75-100 [facility] Comment on above: Performed By: #### L 9000.0800 ####[facility] [address] [place], [address] Read Back By Yes [facility] Comment on above: Performed By: #### L 9000.0800 ####[facility] [address] [place], [address] Gallardo [facility] Comment on above: Performed By: #### L 9000.0800 ####[facility] [address] [place], [address] RR 16 Normal [facility] Comment on above: Performed By: #### L 9000.0800 ####[facility] [address] [place], [address] SITE L Radial Normal [facility] Comment on above: Performed By: #### L 9000.0800 ####[facility] [address] [place], [address] SO2 98 Normal 95-99 [facility] Comment on above: Performed By: #### L 9000.0800 ####[facility] [address] [place], [address] Time Given 22:51:06 [facility] Comment on above: Performed By: #### L 0.0800 ####[facility] [address] [place], [address] TOTAL CO2 < 5 Normal [facility] Comment on above: Performed By: #### L 0.0800 ####[facility] [address] [place], [address] ALMA DELIA TEST N/A Normal [facility] Comment on above: Performed By: #### L 0.0800 ####[facility] [address] [place], [address] Base excess Calc (Bld) [Moles/Vol] -29 mmol/L Low -2 to +2 [facility] Comment on above: Performed By: #### L 0.0800 ####[facility] [address] [place], [address] Blood Gas Type ART Normal [facility] Comment on above: Performed By: #### L 8999.0800 ####[facility] [address] [place], [address] CO2 [Moles/Vol] 5 mmol/L [facility] Comment on above: Performed By: #### L 0.0800 ####[facility] [address] [place], [address] Comment AC VC 14 450 +5 45% Normal [facility] Comment on above: Performed By: #### L 8999.0800 ####[facility] [address] [place], [address] FI02 45.0 Normal [facility] Comment on above: Performed By: #### L 0.0800 ####[facility] [address] [place], [address] HCO3 (Bld) [Moles/Vol] 4.4 mmol/L Low 22-26 [facility] Comment on above: Performed By: #### L 9000.0800 ####[facility] [address] [place], [address] Mode AC Normal [facility] Comment on above: Performed By: #### L 9000.0800 ####[facility] [address] [place], [address] O2 Delivery Dev Adult Vent Normal [facility] Comment on above: Performed By: #### L 9000.0800 ####[facility] [address] [place], [address] pCO2 22.2 mmHg Low 35-45 [facility] Comment on above: Performed By: #### L 9000.0800 ####[facility] [address] [place], [address] pH (Bld) 6.90 [pH] Invalid Interpretation Code 7.35-7.45 [facility] Comment on above: Performed By: #### L 9000.0800 ####[facility] [address] [place], [address] PO2 172 mmHG High 75-100 [facility] Comment on above: Performed By: #### L 9000.0800 ####[facility] [address] [place], [address] Read Back By Yes Normal [facility] Comment on above: Performed By: #### L 9000.0800 ####[facility] [address] [place], [address] SITE R Brach Normal [facility] Comment on above: Performed By: #### L 9000.0800 ####[facility] [address] [place], [address] SO2 98 Normal 95-99 [facility] Comment on above: Performed By: #### L 9000.0800 ####[facility] [address] [place], [address] Blood cultureOrdered By: Alexis Friend on 05-01-2024 Blood culture No growth in 5 days. [facility] Blood culture No growth in 5 days. [facility] CBC W/Diff, Automatedon 04-07 Absolute Lymph 1.26 X10 3/uL Normal 0.83-4.51 [facility] Comment on above: Performed By: #### M 200.1000, L500.4050, L100.0100, L300.3900, L503.6005 ####[facility] [address] [place], [address] Absolute Neut 14.2 X10 3/uL High 2.0-7.7 [facility] Comment on above: Performed By: #### M 200.1000, L500.4050, L100.0100, L300.3900, L503.6005 ####[facility] [address] [place], [address] Basophils/100 WBC (Bld) 0.3 % Normal 0-1 [facility] Comment on above: Performed By: #### M 200.1000, L500.4050, L100.0100, L300.3900, L503.6005 ####[facility] [address] [place], [address] Eosinophils/100 WBC (Bld) 0.4 % Normal 0-5 [facility] Comment on above: Performed By: #### M 200.1000, L500.4050, L100.0100, L300.3900, L503.6005 ####[facility] [address] [place], [address] Erythrocyte distribution width (RBC) [Ratio] 16.6 % High 11.6-14.6 [facility] Comment on above: Performed By: #### M 200.1000, L500.4050, L100.0100, L300.3900, L503.6005 ####[facility] [address] [place], [address] Hematocrit (Bld) [Volume fraction] 30.5 % Low 37-47 [facility] Comment on above: Performed By: #### M 200.1000, L500.4050, L100.0100, L300.3900, L503.6005 ####[facility] [address] [place], [address] Hemoglobin (Bld) [Mass/Vol] 9.7 g/dL Low 12.0-15.0 [facility] Comment on above: Performed By: #### M 200.1000, L500.4050, L100.0100, L300.3900, L503.6005 ####[facility] [address] [place], [address] IG% 1.100 High 0.0-0.9 [facility] Comment on above: Result Comment: IG% - Immature Granulocytes (promyelocytes, myelocytes andmetamyelocytes) > 1% indicates that a LEFT SHIFT is Present. Performed By: #### M 200.1000, L500.4050, L100.0100, L300.3900, L503.6005 ####[facility] [address] [place], [address] Lymphocytes/100 WBC (Bld) 7.4 % Low 19-41 [facility] Comment on above: Performed By: #### M 200.1000, L500.4050, L100.0100, L300.3900, L503.6005 ####[facility] [address] [place], [address] MCH (RBC) [Entitic mass] 32.3 pg High 27.0-32.0 [facility] Comment on above: Performed By: #### M 200.1000, L500.4050, L100.0100, L300.3900, L503.6005 ####[facility] [address] [place], [address] MCHC (RBC) [Mass/Vol] 31.8 g/dL Low 32-36 [facility] Comment on above: Performed By: #### M 200.1000, L500.4050, L100.0100, L300.3900, L503.6005 ####[facility] [address] [place], [address] MCV (RBC) [Entitic vol] 101.7 fL High 81-99 [facility] Comment on above: Performed By: #### M 200.1000, L500.4050, L100.0100, L300.3900, L503.6005 ####[facility] [address] [place], [address] Monocytes/100 WBC (Bld) 7.5 % Normal 0-10 [facility] Comment on above: Performed By: #### M 200.1000, L500.4050, L100.0100, L300.3900, L503.6005 ####[facility] [address] [place], [address] Neutrophils/100 WBC (Bld) 83.3 % High 47-70 [facility] Comment on above: Performed By: #### M 200.1000, L500.4050, L100.0100, L300.3900, L503.6005 ####[facility] [address] [place], [address] Nucleated RBC (Bld) [#/Vol] 0.4 10*3/uL Normal 0-5 [facility] Comment on above: Performed By: #### M 200.1000, L500.4050, L100.0100, L300.3900, L503.6005 ####[facility] [address] [place], [address] Platelet mean volume (Bld) [Entitic vol] 12.8 fL High 6.2-12.0 [facility] Comment on above: Performed By: #### M 200.1000, L500.4050, L100.0100, L300.3900, L503.6005 ####[facility] [address] [place], [address] Platelets (Bld) [#/Vol] 286 10*3/uL Normal 150-450 [facility] Comment on above: Performed By: #### M 200.1000, L500.4050, L100.0100, L300.3900, L503.6005 ####[facility] [address] [place], [address] RBC (Bld) [#/Vol] 3.00 10*6/uL Low 4.2-5.4 [facility] Comment on above: Performed By: #### M 200.1000, L500.4050, L100.0100, L300.3900, L503.6005 ####[facility] [address] [place], [address] RDW SD 61.4 fl High 35.1-43.9 [facility] Comment on above: Performed By: #### M 200.1000, L500.4050, L100.0100, L300.3900, L503.6005 ####[facility] [address] [place], [address] WBC (Bld) [#/Vol] 17.0 10*3/uL High 4.4-11.0 [facility] Comment on above: Performed By: #### M 200.1000, L500.4050, L100.0100, L300.3900, L503.6005 ####[facility] [address] [place], [address] CDIFF (PCR)on 05-01-2024 CDIFF Is the patient recei ving laxatives? N Pending [phone] NAP1-B1 Presumptive Negative *for epidemiolologic???use C. Diff PCR Negative- No toxigenic C. Diff Detected Normal [facility] Comment on above: Performed By: #### M 100.6796 ####[facility] [address] [place], [address] CO2 (BldV) [Moles/Vol]Ordere d By: Alexis Friend on 05-01-2024 Venous blood total carbon dioxide measurement < 5 mmol/L Low 23-33 [facility] CO2 (BldV) [Partial pressure ]Ordered By: Alexis Friend on 05-01-2024 Venous blood partial pressure of carbon dioxide measurement 14.1 mmHg Low 41-51 [facility] CPK Total, Creatine Kinaseon 05-01-2024 CPK TOTAL 487 U/L High 26-192 [facility] Comment on above: Order Comment: Comme nts: DC when propofol is d/c'dDC when propofol is d/c'd Performed By: #### L 501.3620, L501.5000 ####[facility] [address] [place], [place], [id number] Chest 1 View (Portable)on Chest 1 View (Portable) Normal [facility] Chest 1 View (Portable) Normal [facility] Clarity (U)Ordered By: Alexis G allo on 05-01-2024 Urine clarity Cloudy Clear [facility] Color (U)Ordered By: Alexis Gal lo on 05-01-2024 Urine color determination Yellow Yellow [facility] Comprehensive Metabolic Prof ilon 05-01-2024 Albumin [Mass/Vol] 2.8 g/dL Low 3.2-5.0 [facility] Comment on above: Order Comment: Blood cultures x2, from two different sites Performed By: #### M 200.1000, L500.4050, L100.0100, L300.3900, L503.6005 ####[facility] [address] [place], [address] Albumin/Globulin [Mass ratio] 0.8 {ratio} Low 0.9-2.4 [facility] Comment on above: Order Comment: Blood cultures x2, from two different sites Performed By: #### M 200.1000, L500.4050, L100.0100, L300.3900, L503.6005 ####[facility] [address] [place], [address] ALK P 97 U/L Normal 45-117 [facility] Comment on above: Order Comment: Blood cultures x2, from two different sites Performed By: #### M 200.1000, L500.4050, L100.0100, L300.3900, L503.6005 ####[facility] [address] [place], [address] ALT [Catalytic activity/Vol] 18 U/L Normal 13-56 [facility] Comment on above: Order Comment: Blood cultures x2, from two different sites Performed By: #### M 200.1000, L500.4050, L100.0100, L300.3900, L503.6005 ####[facility] [address] [place], [address] AST [Catalytic activity/Vol] 22 U/L Normal 15-37 [facility] Comment on above: Order Comment: Blood cultures x2, from two different sites Performed By: #### M 200.1000, L500.4050, L100.0100, L300.3900, L503.6005 ####[facility] [address] [place], [address] Bilirubin [Mass/Vol] 0.30 mg/dL Normal 0.20-1.00 [facility] Comment on above: Order Comment: Blood cultures x2, from two different sites Result Comment: For patients on eltrombopag therapy, use of Dimension Leslie TBIL is not recommended. Performed By: #### M 200.1000, L500.4050, L100.0100, L300.3900, L503.6005 ####[facility] [address] [place], [address] BUN/CRE 19.9 RATIO Normal 10-20 [facility] Comment on above: Order Comment: Blood cultures x2, from two different sites Performed By: #### M 200.1000, L500.4050, L100.0100, L300.3900, L503.6005 ####[facility] [address] [place], [address] CA,Total 8.4 mg/dL Low 8.5-10.1 [facility] Comment on above: Order Comment: Blood cultures x2, from two different sites Performed By: #### M 200.1000, L500.4050, L100.0100, L300.3900, L503.6005 ####[facility] [address] [place], [address] Chloride [Moles/Vol] 121 mmol/L High 98-107 [facility] Comment on above: Order Comment: Blood cultures x2, from two different sites Performed By: #### M 200.1000, L500.4050, L100.0100, L300.3900, L503.6005 ####[facility] [address] [place], [address] CO2 [Moles/Vol] 4.0 mmol/L Invalid Interpretation Code 21.0-32.0 [facility] Comment on above: Order Comment: Blood cultures x2, from two different sites Result Comment: Crit ical Result(s) Called at: 13:35:09 05/01/2024 by: Maye to (). Results read back by same. Performed By: #### M 200.1000, L500.4050, L100.0100, L300.3900, L503.6005 ####[facility] [address] [place], [address] Creatinine [Mass/Vol] 7.93 mg/dL Invalid Interpretation Code 0.55-1.02 [facility] Comment on above: Order Comment: Blood cultures x2, from two different sites Result Comment: Crit ical Result(s) Called at: 13:35:09 05/01/2024 by: Maye to (). Results read back by same.The validity of the calculated GFR GFRAA in patients over70 years has not been determined. Clinical correlation isessential. Performed By: #### M 200.1000, L500.4050, L100.0100, L300.3900, L503.6005 ####[facility] [address] [place], [address] EST GFR - AA 6 mL/min Low >60 [facility] Comment on above: Order Comment: Blood cultures x2, from two different sites Result Comment: Afri can [place] Islander GFR Calc Performed By: #### M 200.1000, L500.4050, L100.0100, L300.3900, L503.6005 ####[facility] [address] [place], [address] GAP 18 High 5-15 [facility] Comment on above: Order Comment: Blood cultures x2, from two different sites Performed By: #### M 200.1000, L500.4050, L100.0100, L300.3900, L503.6005 ####[facility] [address] [place], [address] GFR/1.73 sq M.predicted among non-blacks MDRD (S/P/Bld) [Vol rate/Area] 5 mL/min/{1.73_m2} Low >60 [facility] Comment on above: Order Comment: Blood cultures x2, from two different sites Result Comment: Non- GFR Calc Performed By: #### M 200.1000, L500.4050, L100.0100, L300.3900, L503.6005 ####[facility] [address] [place], [address] Globulin (S) [Mass/Vol] 3.7 g/dL Normal 2.2-4.2 [facility] Comment on above: Order Comment: Blood cultures x2, from two different sites Performed By: #### M 200.1000, L500.4050, L100.0100, L300.3900, L503.6005 ####[facility] [address] [place], [address] Glucose [Mass/Vol] 69 mg/dL Low 74-106 [facility] Comment on above: Order Comment: Blood cultures x2, from two different sites Performed By: #### M 200.1000, L500.4050, L100.0100, L300.3900, L503.6005 ####[facility] [address] [place], [address] Potassium [Moles/Vol] 6.1 mmol/L Invalid Interpretation Code 3.5-5.1 [facility] Comment on above: Order Comment: Blood cultures x2, from two different sites Result Comment: Crit ical Result(s) Called at: 13:35:09 05/01/2024 by: Maye to (). Results read back by same. Performed By: #### M 200.1000, L500.4050, L100.0100, L300.3900, L503.6005 ####[facility] [address] [place], [address] Sodium [Moles/Vol] 142 mmol/L Normal 136-145 [facility] Comment on above: Order Comment: Blood cultures x2, from two different sites Performed By: #### M 200.1000, L500.4050, L100.0100, L300.3900, L503.6005 ####[facility] [address] [place], [address] T PROT 6.5 g/dL Normal 6.4-8.2 [facility] Comment on above: Order Comment: Blood cultures x2, from two different sites Performed By: #### M 200.1000, L500.4050, L100.0100, L300.3900, L503.6005 ####[facility] [address] [place], [address] Urea nitrogen [Mass/Vol] 158 mg/dL Invalid Interpretation Code 7-18 [facility] Comment on above: Order Comment: Blood cultures x2, from two different sites Result Comment: Crit ical Result(s) Called at: 13:35:09 05/01/2024 by: Maye to (ER). Results read back by same. Performed By: #### M 200.1000, L500.4050, L100.0100, L300.3900, L503.6005 ####[facility] [address] [place], [place], [address] Consultation - Intensiviston 05-01-2024 Consultation - Senior Oracle Applications Developer Normal [facility] Emergency Department Summary on 05-01-2024 Emergency Department Summary Normal [facility] Epithelial cells.renal LM.HP F (Urine sed) [#/Area]Ordered By: Alexis Friend on 05-01-2024 Urine sediment renal epithelial cell count by microscopy (number/high power field) 25-50 SEEN /hpf 0-5 [facility] H AND P Exam - Hospitaliston 05-01-2024 H&P Exam - Hospitalist Normal [facility] Ketones Test strip Ql (U)Ord ered By: Alexis Friend on 05-01-2024 Urine ketones detection by test strip 5 mg/dl High Negative [facility] Lactic Acidon 05-01-2024 Lactate [Moles/Vol] 0.8 mmol/L Normal 0.4-1.9 [facility] Comment on above: Order Comment: Y Performed By: #### M 200.1000, L500.4050, L100.0100, L300.3900, L503.6005 ####[facility] [address] [place], [place], [id number] Lactic acid measurementOrder ed By: Alexis Friend on 05-01-2024 Lactic acid measurement 0.8 mmol/L 0.4-2.0 [facility] Legionella Antigen Urineon 0 05-01-2024 LEGU Normal [facility] Comment on above: Performed By: #### M 300.4500, M300.4600 ####[facility] [address] [facility] [place], [address] Leukocyte esterase Test stri p Ql (U)Ordered By: Alexis Friend on 05-01-2024 Urine leukocyte esterase detection by dipstick 500 /ul High Negative [facility] M100.678on 05-01-2024 M100.678 Pending SARS-CoV-2 (COVID 19) Negative INFLUENZA A Negative INFLUENZA B Negative RSV PCR Negative Normal [facility] Comment on above: Performed By: #### M 100.678 ####[facility] [address] [facility] [place], [place], [id number] Microorganism identified Cx Nom (Unsp spec)Ordered By: Bernarda Becerril on 05-01-2024 Microbial respiratory culture or Staphylococcus aureus isolated. [facility] Microscopic analysis of urin e for red blood cells (RBC)Ordered By: Alexis Friend on 05-01-2024 Microscopic analysis of urine for red blood cells (RBC) 5-10 SEEN /hpf 5-10 [facility] Mucus LM Ql (Urine sed)Order ed By: Alexis Friend on 05-01-2024 Mucus detection in urine sediment by light microscopy 0 SEEN /hpf [facility] Nitrite Test strip Ql (U)Ord ered By: Alexis Friend on 05-01-2024 Urine nitrite test by dipstick Negative Negative [facility] No Panel InformationOrdered By: Bernarda Becerril on 05-01-2024 AC VC 14 450 +5 45% [facility] No Panel InformationOrdered By: Alexis Friend on 05-01-2024 22 U/L 15-37 [facility] Oxygen (BldV) [Partial press ure]Ordered By: Alexis Friend on 05-01-2024 Venous blood partial pressure of oxygen measurement 199 mmHg High 25-40 [facility] Partial Thromboplast Timeon 05-01-2024 aPTT Coag (d) [Time] 31.2 s Normal 24.1-36.2 [facility] Comment on above: Order Comment: REDRA W. PREVIOUS SPECIMEN REJECTED DUE TOSPECIMEN BEING HEMOLYZED. 05/01/24 1328 Pratik Lee. Performed By: #### L 300.3900, L300.4310 ####[facility] [address] [place], [address] Protein Test strip Ql (U)Ord ered By: Alexis Friend on 05-01-2024 Urine protein assay by test strip, semi-quantitative 100 mg/dl High Negative [facility] Prothrombin Time w/INRon INR Coag (PPP) [Relative time] 1.3 {INR} Normal [facility] Comment on above: Order Comment: REDRA W. PREVIOUS SPECIMEN REJECTED DUE TOSPECIMEN BEING HEMOLYZED. 05/01/248 Pratik Lee. Performed By: #### L 300.3900, L300.4310 ####[facility] [address] [place], [address] PT Coag (PPP) [Time] 16.2 s High 11.7-14.9 [facility] Comment on above: Order Comment: REDRA W. PREVIOUS SPECIMEN REJECTED DUE TOSPECIMEN BEING HEMOLYZED. 05/01/248 Pratik Lee. Performed By: #### L 300.3900, L300.4310 ####[facility] [address] [place], [address] INR Normal [facility] Comment on above: Result Comment: This specimen has been REJECTED due to Laboratory criteria:Hemolyzed.ED STAFF has been notified of need of recollection.05/01/24 1327 Pratik Lee Performed By: #### M 200.1000, L500.4050, L100.0100, L300.3900, L503.6005 ####[facility] [address] [place], [address] PROTIME Normal 11.7-14.9 [facility] Comment on above: Result Comment: This specimen has been REJECTED due to Laboratory criteria:Hemolyzed.ED STAFF has been notified of need of recollection.05/01/24 1327 Pratik Lee Performed By: #### M 200.1000, L500.4050, L100.0100, L300.3900, L503.6005 ####[facility] [address] [place], [address] RESPIRATORY PANEL MOLECULARo n 05-01-2024 RP PANEL Normal [facility] Comment on above: Performed By: #### M 100.638 ####[facility] [address] [place], [place], [address] Serum globulin measurementOr dered By: Alexis Friend on 05-01-2024 Serum globulin measurement 3.7 g/dL 2.2-4.2 [facility] Specific gravity (U) [Rel de nsity]Ordered By: Alexis Friend on 05-01-2024 Urine specific gravity measurement 1.020 1.002-1.03 0 [facility] Strep pneumoniae Antig(UR,CS F)on 05-01-2024 STPAG Normal [facility] Comment on above: Performed By: #### M 300.4500, M300.4600 ####[facility] [address] [place], [place], [address] Total creatine kinase measur ementOrdered By: Kin Young on 05-01-2024 Total creatine kinase measurement 487 U/L High 26-192 [facility] Total proteinOrdered By: Alexis Friend on 05-01-2024 Total protein 6.5 g/dL 6.4-8.2 [facility] Transitional cells LM Ql (Ur ine sed)Ordered By: Alexis Friend on 05-01-2024 Transitional cells detection in urine sediment by light microscopy 0-5 SEEN /hpf 0-5 [facility] Triglycerideson 05-01-2024 Triglyceride [Mass/Vol] 182 mg/dL Normal [facility] Comment on above: Order Comment: Comme nts: DC when propofol is d/c'dDC when propofol is d/c'd Result Comment: The drugs N-Acetylcysteine and Metamizole may falselydepress this assay.Serum Triglycerides Reference Interval Normal <150 mg/dL Borderline high 150 - 199 mg/dL High 200 - 499 mg/dL Very High > or = 500 mg/dL Performed By: #### L 501.3620, L501.5000 ####[facility] [address] [place], [address] Triglycerides measurementOrd ered By: Kin Young on 05-01-2024 Triglycerides measurement 182 mg/dL <199 [facility] Urinalysis, Completeon 05-01 BACTERIA 3+ /hpf Normal None Seen [facility] Comment on above: Order Comment: SUSAN TER SPECIMEN Performed By: #### M 100.2200, L400.0001 ####[facility] [address] [place], [address] EPI,RENAL 25-50 SEEN Normal 0-5 [facility] Comment on above: Order Comment: SUSAN TER SPECIMEN Performed By: #### M 100.2200, L400.0001 ####[facility] [address] [place], [address] EPI,SQUAMOUS 5-10 SEEN Normal 5-10 [facility] Comment on above: Order Comment: SUSAN TER SPECIMEN Performed By: #### M 100.2200, L400.0001 ####[facility] [address] [place], [address] EPI,TRANSITION 0-5 SEEN Normal 0-5 [facility] Comment on above: Order Comment: SUSAN TER SPECIMEN Performed By: #### M 100.2200, L400.0001 ####[facility] [address] [place], [address] RBC 5-10 SEEN Normal 0-5 [facility] Comment on above: Order Comment: SUSAN TER SPECIMEN Performed By: #### M 100.2200, L400.0001 ####[facility] [address] [place], [address] WBC 50-100 SEEN Normal 0-5 [facility] Comment on above: Order Comment: SUSAN TER SPECIMEN Performed By: #### M 100.2200, L400.0001 ####[facility] [address] [place], [address] Mucus Ql (Urine sed) 0 SEEN Normal [facility] Comment on above: Order Comment: SUSAN TER SPECIMEN Performed By: #### M 100.2200, L400.0001 ####[facility] [address] [place], [address] Urine blood detectionOrdered By: Alexis Friend on 05-01-2024 Urine blood detection 150 /ul High Negative [facility] Urine cultureOrdered By: Alexis Friend on 05-01-2024 Urine culture Escherichia coli Abnormal [facility] Urine glucose detectionOrder ed By: Alexis Friend on 05-01-2024 Urine glucose detection Normal mg/dl Normal [facility] Venous blood bicarbonate duke surementOrdered By: Alexis Friend on 05-01-2024 Venous blood bicarbonate measurement 4 mmol/L Low 22-26 [facility] Venous blood oxygen saturati on measurementOrdered By: Alexis Friend on 05-01-2024 Venous blood oxygen saturation measurement 99 % High 50-70 [facility] White blood cell countOrdere d By: Alexis Friend on 05-01-2024 White blood cell count 50-100 SEEN /hpf 0-5 [facility] pH (BldV)Ordered By: Alexis pardo on 05-01-2024 Venous blood pH measurement 7.02 Low 7.32-7.42 [facility] pH (U)Ordered By: Alexis Friend on 05-01-2024 Urine pH 5.0 5.0 - 8.0 [facility] CNOVon 03-16-2024 CNOV Office Visit (FAMPWS ) MARI LOPEZ ([id number]) 1940 F Date Time Provider Department 03/16/24 11:20 AM MIRYAM OROZCO During your visit today, we recorded the following information about you: Pulse Respiration Blood pressure Weight 56/minute 16/minute 110/66 104.8 kg Miryam Orozco APRN.ACCOUNTANT 03/16/2024 11:39 AM Addendum Have consult with endocrinology, Dr. Cowart at [facility] to discuss thyroid and elevated PTH. [...] total shoulder arthroplasty on 02/22/2024. Which facility: [facility] Date of visit: 02/25/2024-03/02/2024 Diagnosis: S/P [...] study ordered for 03/04/2024, will follow-up with [facility] pulmonary medicine to go over results. Discharge with PT at [facility]. Instructed to follow-up with surgeon, Dr. Carson. Placed on doxycycline due to arm pain to cover for possible cellulitis where IV was placed. Venous Doppler was negative for any thrombosis in the arm. Needs to complete bone density. Current symptoms: Had follow up with Surgeon, still wearing sling until March 21, still doing PT twice weekly, at [facility]. Doing well since surgery. Next following [...] knee s(Bosto (more content not included)... Normal [facility] Inital Evaluation (1) - PTon 03-10-2023 Inital Evaluation (1) - PT Normal [facility] Discharge Instructionon 02-05 Discharge Instruction Normal [facility] CBC W/Diff, Automatedon 02-05 Absolute Lymph 1.21 X10 3/uL Normal 0.83-4.51 [facility] Comment on above: Performed By: #### L 100.0100 ####[facility] [address] [place], [address] Absolute Neut 5.7 X10 3/uL Normal 2.0-7.7 [facility] Comment on above: Performed By: #### L 100.0100 ####[facility] [address] [facility] [place], [address] Basophils/100 WBC (Bld) 0.5 % Normal 0-1 [facility] Comment on above: Performed By: #### L 100.0100 ####[facility] [address] [place], [address] Eosinophils/100 WBC (Bld) 7.1 % High 0-5 [facility] Comment on above: Performed By: #### L 100.0100 ####[facility] [address] [place], [address] Erythrocyte distribution width (RBC) [Ratio] 13.4 % Normal 11.6-14.6 [facility] Comment on above: Performed By: #### L 100.0100 ####[facility] [address] [place], [address] Hematocrit (Bld) [Volume fraction] 35.0 % Low 37-47 [facility] Comment on above: Performed By: #### L 100.0100 ####[facility] [address] [place], [address] Hemoglobin (Bld) [Mass/Vol] 10.3 g/dL Low 12.0-15.0 [facility] Comment on above: Performed By: #### L 100.0100 ####[facility] [address] [place], [address] IG% 0.900 Normal 0.0-0.9 [facility] Comment on above: Result Comment: IG% - Immature Granulocytes (promyelocytes, myelocytes andmetamyelocytes) > 1% indicates that a LEFT SHIFT is Present. Performed By: #### L 100.0100 ####[facility] [address] [place], [address] Lymphocytes/100 WBC (Bld) 14.9 % Low 19-41 [facility] Comment on above: Performed By: #### L 100.0100 ####[facility] [address] [place], [address] MCH (RBC) [Entitic mass] 32.3 pg High 27.0-32.0 [facility] Comment on above: Performed By: #### L 100.0100 ####[facility] [address] [place], [address] MCHC (RBC) [Mass/Vol] 29.4 g/dL Low 32-36 [facility] Comment on above: Performed By: #### L 100.0100 ####[facility] [address] [place], [address] MCV (RBC) [Entitic vol] 109.7 fL High 81-99 [facility] Comment on above: Performed By: #### L 100.0100 ####[facility] [address] [place], [address] Monocytes/100 WBC (Bld) 6.6 % Normal 0-10 [facility] Comment on above: Performed By: #### L 100.0100 ####[facility] [address] [place], [address] Neutrophils/100 WBC (Bld) 70.0 % Normal 47-70 [facility] Comment on above: Performed By: #### L 100.0100 ####[facility] [address] [place], [address] Nucleated RBC (Bld) [#/Vol] 0 10*3/uL Normal 0-5 [facility] Comment on above: Performed By: #### L 100.0100 ####[facility] [address] [place], [address] Platelet mean volume (Bld) [Entitic vol] 12.3 fL High 6.2-12.0 [facility] Comment on above: Performed By: #### L 100.0100 ####[facility] [address] [place], [address] Platelets (Bld) [#/Vol] 255 10*3/uL Normal 150-450 [facility] Comment on above: Performed By: #### L 100.0100 ####[facility] [address] [place], [address] RBC (Bld) [#/Vol] 3.19 10*6/uL Low 4.2-5.4 [facility] Comment on above: Performed By: #### L 100.0100 ####[facility] [address] [place], [address] RDW SD 54.3 fl High 35.1-43.9 [facility] Comment on above: Performed By: #### L 100.0100 ####[facility] [address] [place], [address] WBC (Bld) [#/Vol] 8.1 10*3/uL Normal 4.4-11.0 [facility] Comment on above: Performed By: #### L 100.0100 ####[facility] [address] [place], [address] Venous Duplex US, Unilateral on 02-29-2024 Venous Duplex US, Unilateral Normal [facility] Urinalysis, Completeon 02-25 BACTERIA 3+ /hpf Normal None Seen [facility] Comment on above: Order Comment: SUSAN TER SPECIMEN Performed By: #### L 400.0001 ####[facility] [address] [place], [address] EPI,SQUAMOUS 0-5 SEEN Normal 5-10 [facility] Comment on above: Order Comment: SUSAN TER SPECIMEN Performed By: #### L 400.0001 ####[facility] [address] [place], [address] RBC 0-5 SEEN Normal 0-5 [facility] Comment on above: Order Comment: SUSAN TER SPECIMEN Performed By: #### L 400.0001 ####[facility] [address] [place], [address] WBC 10-25 SEEN Normal 0-5 [facility] Comment on above: Order Comment: SUSAN TER SPECIMEN Performed By: #### L 400.0001 ####[facility] [address] [place], [address] Mucus Ql (Urine sed) 0 SEEN Normal [facility] Comment on above: Order Comment: SUSAN TER SPECIMEN Performed By: #### L 400.0001 ####[facility] [address] [place], [address] CBC W/Diff, Automatedon 11-2 Absolute Lymph 1.82 X10 3/uL Normal 0.83-4.51 [facility] Comment on above: Performed By: #### L 501.2300, L100.0100, L501.5200, L500.4050 ####[facility] [address] [place], [address] Absolute Neut 3.9 X10 3/uL Normal 2.0-7.7 [facility] Comment on above: Performed By: #### L 501.2300, L100.0100, L501.5200, L500.4050 ####[facility] [address] [place], [address] Basophils/100 WBC (Bld) 0.6 % Normal 0-1 [facility] Comment on above: Performed By: #### L 501.2300, L100.0100, L501.5200, L500.4050 ####[facility] [address] [place], [address] Eosinophils/100 WBC (Bld) 5.8 % High 0-5 [facility] Comment on above: Performed By: #### L 501.2300, L100.0100, L501.5200, L500.4050 ####[facility] [address] [place], [address] Erythrocyte distribution width (RBC) [Ratio] 13.6 % Normal 11.6-14.6 [facility] Comment on above: Performed By: #### L 501.2300, L100.0100, L501.5200, L500.4050 ####[facility] [address] [place], [address] Hematocrit (Bld) [Volume fraction] 33.3 % Low 37-47 [facility] Comment on above: Performed By: #### L 501.2300, L100.0100, L501.5200, L500.4050 ####[facility] [address] [place], [address] Hemoglobin (Bld) [Mass/Vol] 10.2 g/dL Low 12.0-15.0 [facility] Comment on above: Performed By: #### L 501.2300, L100.0100, L501.5200, L500.4050 ####[facility] [address] [place], [address] IG% 0.400 Normal 0.0-0.9 [facility] Comment on above: Result Comment: IG% - Immature Granulocytes (promyelocytes, myelocytes andmetamyelocytes) > 1% indicates that a LEFT SHIFT is Present. Performed By: #### L 501.2300, L100.0100, L501.5200, L500.4050 ####[facility] [address] [place], [address] Lymphocytes/100 WBC (Bld) 26.2 % Normal 19-41 [facility] Comment on above: Performed By: #### L 501.2300, L100.0100, L501.5200, L500.4050 ####[facility] [address] [place], [address] MCH (RBC) [Entitic mass] 32.8 pg High 27.0-32.0 [facility] Comment on above: Performed By: #### L 501.2300, L100.0100, L501.5200, L500.4050 ####[facility] [address] [place], [address] MCHC (RBC) [Mass/Vol] 30.6 g/dL Low 32-36 [facility] Comment on above: Performed By: #### L 501.2300, L100.0100, L501.5200, L500.4050 ####[facility] [address] [place], [address] MCV (RBC) [Entitic vol] 107.1 fL High 81-99 [facility] Comment on above: Performed By: #### L 501.2300, L100.0100, L501.5200, L500.4050 ####[facility] [address] [place], [address] Monocytes/100 WBC (Bld) 10.5 % High 0-10 [facility] Comment on above: Performed By: #### L 501.2300, L100.0100, L501.5200, L500.4050 ####[facility] [address] [place], [address] Neutrophils/100 WBC (Bld) 56.5 % Normal 47-70 [facility] Comment on above: Performed By: #### L 501.2300, L100.0100, L501.5200, L500.4050 ####[facility] [address] [place], [address] Nucleated RBC (Bld) [#/Vol] 0 10*3/uL Normal 0-5 [facility] Comment on above: Performed By: #### L 501.2300, L100.0100, L501.5200, L500.4050 ####[facility] [address] [place], [address] Platelet mean volume (Bld) [Entitic vol] 12.2 fL High 6.2-12.0 [facility] Comment on above: Performed By: #### L 501.2300, L100.0100, L501.5200, L500.4050 ####[facility] [address] [place], [address] Platelets (Bld) [#/Vol] 183 10*3/uL Normal 150-450 [facility] Comment on above: Performed By: #### L 501.2300, L100.0100, L501.5200, L500.4050 ####[facility] [address] [place], [address] RBC (Bld) [#/Vol] 3.11 10*6/uL Low 4.2-5.4 [facility] Comment on above: Performed By: #### L 501.2300, L100.0100, L501.5200, L500.4050 ####[facility] [address] [place], [address] RDW SD 53.3 fl High 35.1-43.9 [facility] Comment on above: Performed By: #### L 501.2300, L100.0100, L501.5200, L500.4050 ####[facility] [address] [place], [address] WBC (Bld) [#/Vol] 6.9 10*3/uL Normal 4.4-11.0 [facility] Comment on above: Performed By: #### L 501.2300, L100.0100, L501.5200, L500.4050 ####[facility] [address] [place], [address] Comprehensive Metabolic [facility] 02-25-2024 Albumin [Mass/Vol] 2.5 g/dL Low 3.2-5.0 [facility] Comment on above: Performed By: #### L 501.2300, L100.0100, L501.5200, L500.4050 ####[facility] [address] [place], [address] Albumin/Globulin [Mass ratio] 0.7 {ratio} Low 0.9-2.4 [facility] Comment on above: Performed By: #### L 501.2300, L100.0100, L501.5200, L500.4050 ####[facility] [address] [place], [address] ALK P 62 U/L Normal 45-117 [facility] Comment on above: Performed By: #### L 501.2300, L100.0100, L501.5200, L500.4050 ####[facility] [address] [place], [address] ALT [Catalytic activity/Vol] 20 U/L Normal 13-56 [facility] Comment on above: Performed By: #### L 501.2300, L100.0100, L501.5200, L500.4050 ####[facility] [address] [place], [address] AST [Catalytic activity/Vol] 22 U/L Normal 15-37 [facility] Comment on above: Performed By: #### L 501.2300, L100.0100, L501.5200, L500.4050 ####[facility] [address] [place], [address] Bilirubin [Mass/Vol] 0.30 mg/dL Normal 0.20-1.00 [facility] Comment on above: Result Comment: For patients on eltrombopag therapy, use of Dimension Leslie TBIL is not recommended. Performed By: #### L 501.2300, L100.0100, L501.5200, L500.4050 ####[facility] [address] [place], [address] BUN/CRE 44.2 RATIO High 10-20 [facility] Comment on above: Performed By: #### L 501.2300, L100.0100, L501.5200, L500.4050 ####[facility] [address] [place], [address] CA,Total 8.1 mg/dL Low 8.5-10.1 [facility] Comment on above: Performed By: #### L 501.2300, L100.0100, L501.5200, L500.4050 ####[facility] [address] [place], [address] Chloride [Moles/Vol] 114 mmol/L High 98-107 [facility] Comment on above: Performed By: #### L 501.2300, L100.0100, L501.5200, L500.4050 ####[facility] [address] [place], [address] CO2 [Moles/Vol] 18.0 mmol/L Low 21.0-32.0 [facility] Comment on above: Performed By: #### L 501.2300, L100.0100, L501.5200, L500.4050 ####[facility] [address] [place], [address] Creatinine [Mass/Vol] 1.56 mg/dL High 0.55-1.02 [facility] Comment on above: Result Comment: The validity of the calculated GFR GFRAA in patients over70 years has not been determined. Clinical correlation isessential. Performed By: #### L 501.2300, L100.0100, L501.5200, L500.4050 ####[facility] [address] [place], [address] EST GFR - AA 41 mL/min Low >60 [facility] Comment on above: Result Comment: Afri can [place] Islander GFR Calc Performed By: #### L 501.2300, L100.0100, L501.5200, L500.4050 ####[facility] [address] [place], [address] GAP 6 Normal 5-15 [facility] Comment on above: Performed By: #### L 501.2300, L100.0100, L501.5200, L500.4050 ####[facility] [address] [place], [address] GFR/1.73 sq M.predicted among non-blacks MDRD (S/P/Bld) [Vol rate/Area] 34 mL/min/{1.73_m2} Low >60 [facility] Comment on above: Result Comment: Non- GFR Calc Performed By: #### L 501.2300, L100.0100, L501.5200, L500.4050 ####[facility] [address] [place], [address] Globulin (S) [Mass/Vol] 3.5 g/dL Normal 2.2-4.2 [facility] Comment on above: Performed By: #### L 501.2300, L100.0100, L501.5200, L500.4050 ####[facility] [address] [place], [address] Glucose [Mass/Vol] 109 mg/dL High 74-106 [facility] Comment on above: Result Comment: Fast ing Glucose result from 100 to 125 mg/dLsuggests IMPAIRED HOMEOSTASIS per A.D.A. criteria. Performed By: #### L 501.2300, L100.0100, L501.5200, L500.4050 ####[facility] [address] [place], [address] Potassium [Moles/Vol] 4.6 mmol/L Normal 3.5-5.1 [facility] Comment on above: Performed By: #### L 501.2300, L100.0100, L501.5200, L500.4050 ####[facility] [address] [place], [address] Sodium [Moles/Vol] 138 mmol/L Normal 136-145 [facility] Comment on above: Performed By: #### L 501.2300, L100.0100, L501.5200, L500.4050 ####[facility] [address] [place], [address] T PROT 6.0 g/dL Low 6.4-8.2 [facility] Comment on above: Performed By: #### L 501.2300, L100.0100, L501.5200, L500.4050 ####[facility] [address] [place], [address] Urea nitrogen [Mass/Vol] 69 mg/dL High 7-18 [facility] Comment on above: Performed By: #### L 501.2300, L100.0100, L501.5200, L500.4050 ####[facility] [address] [place], [address] Ferritinon 02-25-2024 Ferritin [Mass/Vol] 94 ng/mL Normal 8-252 [facility] Comment on above: Performed By: #### L 503.6550, L503.6030 ####[facility] [address] [place], [address] Folates, (Folic Acid)on 02-05 FOLATES 29.20 ng/mL Normal 3.1-55.4 [facility] Comment on above: Order Comment: Has P francy had X-rays with [facility] this admission? [place] Result Comment: Slig ht Hemolysis, Result may be falsely increased. Performed By: #### L 506.0250, L506.0400, L501.9520 ####[facility] [address] [place], [address] Iron+Iron Binding Capacityon 02-25-2024 Iron [Mass/Vol] 26 ug/dL Low 50-170 [facility] Comment on above: Result Comment: Slig ht Hemolysis, Result may be falsely increased. Performed By: #### L 503.6550, L503.6030 ####[facility] [address] [place], [address] IRON SATURATION 6.6 Low 15.0-55.0 [facility] Comment on above: Performed By: #### L 503.6550, L503.6030 ####[facility] [address] [place], [address] TIBC 396 ug/dL Normal 250-450 [facility] Comment on above: Performed By: #### L 503.6550, L503.6030 ####[facility] [address] [place], [address] Magnesiumon 02-25-2024 Magnesium [Mass/Vol] 2.1 mg/dL Normal 1.6-2.6 [facility] Comment on above: Performed By: #### L 501.2300, L100.0100, L501.5200, L500.4050 ####[facility] [address] [place], [address] Phosphoruson 02-25-2024 Phosphate [Mass/Vol] 4.6 mg/dL Normal 2.5-4.9 [facility] Comment on above: Performed By: #### L 501.2300, L100.0100, L501.5200, L500.4050 ####[facility] [address] [place], [address] Retic Panelon 02-25-2024 IM RET FRACTION 21.90 High 3.00-15.90 [facility] Comment on above: Performed By: #### L 100.9950 ####[facility] [address] [place], [address] RET-HE 32.4 pg Normal 30-35 [facility] Comment on above: Performed By: #### L 100.9950 ####[facility] [address] [place], [address] Retic Count 2.34 High 0.5-1.5 [facility] Comment on above: Performed By: #### L 100.9950 ####[facility] [address] [place], [address] Stool Occult Blood iFOBon 11 21-2024 STOB Negative Normal [facility] Comment on above: Performed By: #### M 1007900 ####[facility] [address] [place], [place], [address] T4 Free Directon 02-25-2024 T4 FREE DIRECT 1.68 ng/dL High 0.76-1.46 [facility] Comment on above: Order Comment: Has Manuela sen had X-rays with [facility] this admission? [place] Performed By: #### L 506.0250, L506.0400, L501.9520 ####[facility] [address] [place], [place], [address] Thyroid Stim Hormone (TSH)on 02-25-2024 TSH 0.449 uIU/mL Normal 0.358-3.74 0 [facility] Comment on above: Order Comment: Has Manuela sen had X-rays with [facility] this [place]? [place] Performed By: #### L 506.0250, L506.0400, L501.9520 ####[facility] [address] [place], [place], [address] Vitamin B12on 02-25-2024 Cobalamin (Vitamin B12) [Mass/Vol] 561 pg/mL Normal 211-911 [facility] Comment on above: Performed By: #### L 503.0105 ####[facility] [address] [place], [place], [address] PT D/C Summary (1)on 024 PT D/C Summary (1) Normal [facility] [place] 02-12-2024 CNPN Telephone (FAMPWS) MARI LOPEZ ([id number]) 1940 F Date Time Provider Department 02/12/24 LIZY CAPONE FAMPWS During your visit today, we recorded the following information about you: Alex Lackey MA 02/12/2024 9:00 AM Signed Type of letter/form/fax request - medical clearance request for surgery Form received from fax on 1 floor and placed on MD desk (Dr. Capone) for completion. Completed form needs to be faxed to [facility] at [phone]. Pt scheduled for Left reverse total shoulder arthroplasty on 02/22/[address] Klaus Omalley. Pt has PAT on 02/18/24 at [facility]. Pt last OV on 01/28/24 with Miryam Orozco for routine follow up. Route to [place] when form completed for processing Lizy Capone [...] for Visit: medical clearance form [Other] Cmt: [facility] for shoulder surgery Prescriptions as of 02/12/2024 [...] 24 hr tablet Take by mouth. - Tbtroijsvny-Owattlspd-Yqp C-Mn (GLUCOSAMINE CHONDROITIN MAXSTR) 500-400 mg cap Take 1 capsule by mouth three times daily. - COMPOUNDED PRESCRIPTION Stair lift - DAILY-LUISITO tablet TAKE 1 TABLET BY MOUTH ONCE DAILY. - unxlagh-mhibyzrrq-akmpzdz D3 (CALCIUM 500+D) 500 mg(1,250mg) -200 unit [...] [1003] 05/07/2005 07/12/2021 INJURY TRUNK SITE NEC [YCP4420] 01/16/2006 07/01/2007 Anemia in (more content not included)... Normal [facility] 12 Lead EKG performed by [facility] on 02-09-2024 12 Lead EKG performed by [facility] Normal [facility] Cardiology Visit Reporton Cardiology Visit Report Normal [facility] CNOVon 01-28-2024 CNOV Office Visit (FAMPWS ) MARI LOPEZ ([id number]) 1940 F Date Time Provider Department 01/28/24 [...] having left shoulder surgery in February with [facility], Dr. Omalley. LLE: Lasix 40 mg for [...] CONDYLEANDPLATU MEDIALANDLAT COMPARTMENTS 1990 bilateral total knee s([place]) ARTHRP KNE CONDYLEANDPLATU MEDIALANDLAT COMPARTMENTS 10/24/04 bilateral total knee revisions DELIVERY ONLY , low cervical CHOLECYSTECTOMY COLONOSCOPY FLX DX W/COLLJ SPEC WHEN PFRMD 11/17/2017 Colonoscopy DEBRIDEMENT SUBCUTANEOUS TISSUE 20 SQ CM/< 02/17/07 LEFT LEG DEBRIDEMENT SUBCUTANEOUS TISSUE 20 SQ CM/< [id number] LEFT LEG DEBRIDEMENT SUBCUTANEOUS TISSUE 20 SQ CM/< [id number] LEFT LEG DEBRIDEMENT SUBCUTANEOUS TISSUE 20 SQ CM/< [id number] LEFT LEG DEBRIDEMENT SUBCUTANEOUS TISSUE 20 SQ CM/< [id number] LEFT LEG DEBRIDEMENT SUBCUTANEOUS TISSUE 20 SQ [...] daily. amLODIPi (more content not included)... Normal [facility] T4 Free SerPl-mCncon 024 Free T4 [Mass/Vol] 1.5 ng/dL Normal 0.9-1.7 [facility] Comment on above: Order Comment: Lea monae Type: BLOOD SPECIMENOrdering Facility: [facility] Address: [address] [place] [address] Performed By: #### 3 024-7, 3016-3 ####[facility] [id number] [place] [address] [place] TSH SerPl-aCncon 01-26-2024 TSH Qn 3.870 m[IU]/L Normal 0.270-4.20 0 [facility] Comment on above: Order Comment: Lea monae Type: BLOOD SPECIMENOrdering Facility: [facility] Address: [address] [place] [address] Performed By: #### 3 024-7, 3 ####[facility] [id number] [address] [place] 12-29-2023 MIHIR Telephone (HAKEEM) MARI LOPEZ ([id number]) 1940 F Date Time Provider Department 12/29/23 [...] 24 hr tablet Take by mouth. - Tvirmkilxmx-Utkykctnh-Hjh C-Mn (GLUCOSAMINE CHONDROITIN MAXSTR) 500-400 mg cap Take 1 capsule by mouth three times daily. - COMPOUNDED PRESCRIPTION Stair lift - DAILY-LUISITO tablet TAKE 1 TABLET BY MOUTH ONCE DAILY. - slhdaxz-wurwmhfol-rptwixs D3 (CALCIUM 500+D) 500 mg(1,250mg) -200 unit [...] [1003] 05/07/2005 07/12/2021 INJURY TRUNK SITE NEC [IIY8250] 01/16/2006 07/01/2007 Anemia in chronic kidney disease (CKD) [N18.9, *03/17/2006 Non-Healing Surgical Wound [T81.89XA] 03/16/2007 05/18/2009 FEMALE STRESS INCONTINENC (more content not included)... Normal [facility] Inital Evaluation (1) - PTon 12-24-2023 Inital Evaluation (1) - PT Normal [facility] CNOVon 12-17-2023 CNOV Office Visit (SPAGWO ) MARI LOPEZ ([id number]) 1940 F Date Time Provider Department 12/17/23 8:45 AM ROQUE DELGADOGWO During your visit today, we recorded the following information about you: Pulse Respiration Normal [facility] [place] 12-16-2023 CNPN Telephone (FAMPWS) MARI LOPEZ ([id number]) 1940 F Date Time Provider Department 12/16/23 [...] some form exercise. Keep scheduled appointments with manager logistic. Please let me know what she prefers [...] [E03.9] Order(s):THYROID STIMULATING HORMONE [SQTSH] Order #: [id number] FUTURE T4 FREE/FREE THYROXINE [SQFT4] Order #: [id number] FUTURE Prescriptions as of 12/17/2023 - zolpidem [...] 24 hr tablet Take by mouth. - Idwjddyysum-Aobgnttkx-Qkj C-Mn (GLUCOSAMINE CHONDROITIN MAXSTR) 500-400 mg cap Take 1 capsule by mouth three times daily. - COMPOUNDED PRESCRIPTION Stair lift - DAILY-LUISITO tablet TAKE 1 TABLET BY MOUTH ONCE DAILY. - kuhlgyk-fdxwbndla-ubcrzqc D3 (CALCIUM 500+D) 500 mg(1,250mg) -200 unit [...] TAB Take (more content not included)... Normal [facility] 12-14-2023 [facility] Telephone (AGSPINE3) MARI LOPEZ ([id number]) 1940 F Date Time Provider Department 12/14/23 [...] elaborate or confirm Was Patient Referred to [facility]/Seek Emergency Treatment (Y/N): n Did Patient Agree (Y/N): n/a Was An Attempt Made To Transfer The Patient To The Office (Y/N): n Were You Able To Reach Someone At The Office (Y/N): n/a If Yes - Patient Was Transferred To (Caregivers Name): n/a If No - Which [facility] Leadership Collar Closer Lockstitch Did You Speak With Regarding This Patient: n/a Was an appointment scheduled (Y/N): n Reason patient was requesting visit (RFV/signs and symptoms/diagnosis) : n/a Person calling if other than patient: self Return call to if other than patient: self Best contact number: [phone] Thank you, Linda Singh December 14, 2023 12:40 PM Sofía Crowe 12/14/2023 1:04 PM Signed This patient does not have mychart- but was scheduled for a VV Please reschedule her to in person as we do not schedule phone call visits any longer Gonzalo Holland 12/14/2023 1:32 PM Signed Patient has been rescheduled with Dr. Delgado in [place] on 12/16 at 8:45am. Gonzaol Holland Allergies As of Date: 12/14/2023 Noted [...] 24 hr tablet Take by mouth. - Neiluvuptxm-Xxytokqhl-Kjb C-Mn (GLUCOSAMINE CHONDROITIN MAXSTR) 500-400 mg cap Take 1 capsule by mouth three times daily. - COMPOUNDED PRESCRIPTION Stair lift - DAILY-LUISITO tablet TAKE 1 TABLET BY MOUTH ONCE DAILY. - ilsiwpm-pyeosjgzy-mersvyx D3 (CALCIUM 500+D) 500 mg(1,250mg) -200 unit [...] once daily. (more content not included)... Normal [facility] CJN Telephone (MO) MARI LOPEZ ([id number]) 1940 F Date Time Provider Department 12/14/23 MIRYAM OROZCO During your visit today, we recorded the following information about you: Minna Blue LPN 12/14/2023 10:41 AM Signed Pt came to window requesting a order for Physical Therapy due to frequent falls. She would like it faxed to [facility]. RUDDY Gong Ashley, APRN.CJ 12/14/2023 11:32 AM Signed Order for physical therapy has been placed. Will be faxed to [facility]. Miryam Orozco APRN.CJ Allergies As of Date: [...] Order(s):CONSULT TO PHYSICAL THERAPY [9032] Order #: [id number]: 1 FUTURE Prescriptions as of 12/14/2023 - [...] 24 hr tablet Take by mouth. - Ntcdlgldbsg-Tyvuojhrj-Cft C-Mn (GLUCOSAMINE CHONDROITIN MAXSTR) 500-400 mg cap Take 1 capsule by mouth three times daily. - COMPOUNDED PRESCRIPTION Stair lift - DAILY-LUISITO tablet TAKE 1 TABLET BY MOUTH ONCE DAILY. - vcvtqqo-cubgnrway-irurlta D3 (CALCIUM 500+D) 500 mg(1,250mg) -200 unit [...] [1003] 05/07/2005 07/12/2021 INJURY TRUNK SITE NEC [AQE7695] 01/16/2006 07/01/2007 Anemia in chronic kidney disease (CKD) [N18.9, *03/17/2006 Non-Healing Surgical Wound [T81.89XA] 03/16/2007 05/18/2009 FEMALE STRESS INCONTINENCE [N39.3] 07/12/2008 MASS IN SUBCUTANEOUS TISSUE [R22.9] 07/21/2008 08/18/2018 Pain in Joint, Lower Leg [M25.569] 11/14/200808/21 (more content not included)... Normal [facility] Comprehensive metabolic 2000 panelon 12-14-2023 Albumin [Mass/Vol] 3.9 g/dL Normal 3.9-4.9 [facility] Comment on above: Order Comment: Speci men Type: BLOOD SPECIMENOrdering Facility: [facility] Address: [address] [place] [address] Performed By: #### 2 4323-8, 28201-3, 3016-3 ####[facility] LABIA [id number] [place] [address] [place] ALP [Catalytic activity/Vol] 77 U/L Normal 34-123 [facility] Comment on above: Order Comment: Speci men Type: BLOOD SPECIMENOrdering Facility: [facility] Address: [address] [place], [place] [address] Performed By: #### 2 4323-8, 71561-2, 3016-3 ####[facility] LABIA [id number] [place] [id number] [place] ALT [Catalytic activity/Vol] 15 U/L Normal 7-38 [facility] Comment on above: Order Comment: Speci men Type: BLOOD SPECIMENOrdering Facility: [facility] Address: [address] [place] [address] Performed By: #### 2 4323-8, 53367-1, 3016-3 ####[facility] LABCLIA [id number] [facility] [address] [address] [place] Anion gap [Moles/Vol] 14 mmol/L Normal 8-15 [facility] Comment on above: Order Comment: Speci men Type: BLOOD SPECIMENOrdering Facility: [facility] Address: [address] [place] [address] Performed By: #### 2 4323-8, 90271-0, 6-3 ####[facility] LABCLIA [id number] [facility] [place] [id number] [place] AST [Catalytic activity/Vol] 22 U/L Normal 13-35 [facility] Comment on above: Order Comment: Speci men Type: BLOOD SPECIMENOrdering Facility: [facility] Address: [address] [place] [address] Performed By: #### 2 4323-8, 86714-6, 3015-3 ####[facility] LABIA [id number] [place] [address] [place] Bilirubin [Mass/Vol] 0.4 mg/dL Normal 0.2-1.3 [facility] Comment on above: Order Comment: Speci men Type: BLOOD SPECIMENOrdering Facility: [facility] Address: [address] [place], [place] [address] Performed By: #### 2 4323-8, 60486-3, 3015-3 ####[facility] LABIA [id number] [facility] [address] [address] [place] Calcium [Mass/Vol] 9.1 mg/dL Normal 8.5-10.2 [facility] Comment on above: Order Comment: Speci men Type: BLOOD SPECIMENOrdering Facility: [facility] Address: [address] [place], [place] [address] Performed By: #### 2 4323-8, 91214-1, 6-3 ####[facility] LABCLIA [id number] [place] [address] [place] Chloride [Moles/Vol] 109 mmol/L High 98-107 [facility] Comment on above: Order Comment: Speci men Type: BLOOD SPECIMENOrdering Facility: [facility] Address: [address] [place] [address] Performed By: #### 2 4323-8, 78992-1, 3016-3 ####[facility] LABCLIA [id number] [place] [address] [place] CO2 [Moles/Vol] 17 mmol/L Low 22-30 [facility] Comment on above: Order Comment: Speci men Type: BLOOD SPECIMENOrdering Facility: [facility] Address: [address] [place] [address] Performed By: #### 2 4323-8, 46927-2, 3016-3 ####[facility] LABCLIA [id number] [place] [address] [place] Creatinine [Mass/Vol] 1.72 mg/dL High 0.58-0.96 [facility] Comment on above: Order Comment: Speci men Type: BLOOD SPECIMENOrdering Facility: [facility] Address: [address] [place] [address] Performed By: #### 2 4323-8, 84399-9, 3016-3 ####[facility] LABIA [id number] [place] [address] [place] Creatinine and Glomerular filtration rate.predicted panel (S/P/Bld) 30 mL/min/1.73m??? Low >=60 [facility] Comment on above: Order Comment: Speci men Type: BLOOD SPECIMENOrdering Facility: [facility] Address: [address] [place] [address] Result Comment: Kayy mated Glomerular Filtration Rate [...] actual GFR. Performed By: #### 2 4323-8, 58056-8, 3 ####[facility] LABCLIA [id number] [address] [address] [place] Glucose [Mass/Vol] 99 mg/dL Normal 74-99 [facility] Comment on above: Order Comment: Lea monae Type: BLOOD SPECIMENOrdering Facility: [facility] Address: [address] [place] [address] Result Comment: The [place] Diabetes Association (ADA) provides guidance for cutoff [...] Standards of Medical Care in Diabetes 2016, [place] Diabetes Association. Diabetes Care. 2016.39(Suppl 1). Performed By: #### 2 4323-8, 77999-2, 3015-06 ####[facility] LABCLIA [id number] [facility] [address] [address] [place] Potassium [Moles/Vol] 5.3 mmol/L High 3.7-5.1 [facility] Comment on above: Order Comment: Lea monae Type: BLOOD SPECIMENOrdering Facility: [facility] Address: [address] [place] [address] Performed By: #### 2 4323-8, 07622-9, 3015-06 ####[facility] LABCLIA [id number] [facility] [address] [address] [place] Protein [Mass/Vol] 6.6 g/dL Normal 6.3-8.0 [facility] Comment on above: Order Comment: Speci men Type: BLOOD SPECIMENOrdering Facility: [facility] Address: [address] [place] [address] Performed By: #### 2 4323-8, 09769-9, 3016-3 ####[facility] LABCLIA [id number] [place] [address] [place] Sodium [Moles/Vol] 140 mmol/L Normal 136-144 [facility] Comment on above: Order Comment: Speci men Type: BLOOD SPECIMENOrdering Facility: [facility] Address: [address] [place] [address] Performed By: #### 2 4323-8, 43835-5, 3016-3 ####[facility] LABCLIA [id number] [place] [address] [place] Urea nitrogen [Mass/Vol] 68 mg/dL High 7-21 [facility] Comment on above: Order Comment: Speci men Type: BLOOD SPECIMENOrdering Facility: [facility] Address: [address] [place] [address] Performed By: #### 2 4323-8, 02058-8, 3015-3 ####[facility] LABCLIA [id number] [address] [address] [place] Lipid 1996 panelon 4 Cholesterol [Mass/Vol] 179 mg/dL Normal <200 [facility] Comment on above: Order Comment: Speci men Type: BLOOD SPECIMENOrdering Facility: [facility] Address: [address] [place] [address] Result Comment: <200 mg/dL, Desirable 200-239 mg/dL, Borderline high >239 mg/dL, High Performed By: #### 2 4323-8, 98321-2, 3016-3 ####[facility] LABCLIA [id number] [address] [address] [place] Cholesterol in HDL [Mass/Vol] 55 mg/dL Normal >39 [facility] Comment on above: Order Comment: Jesui dov Type: BLOOD SPECIMENOrdering Facility: [facility] Address: [facility] [place] [address] Result Comment: 40-5 9 mg/dL, Acceptable >59 mg/dL, High: Negative risk factor for coronary heart disease <40 mg/dL, Low: Positive risk factor for coronary heart disease Performed By: #### 2 4323-8, 90995-3, 6-3 ####[facility] LABCLIA [id number] [address] [place] Cholesterol in LDL [Mass/Vol] 90 mg/dL Normal <100 [facility] Comment on above: Order Comment: Lea dov Type: BLOOD SPECIMENOrdering Facility: [facility] Address: [address] [place] [address] Result Comment: <100 mg/dL, Optimal 100-129 mg/dL, Near optimal/above optimal 130-159 mg/dL, Borderline high 160-189 mg/dL, High >189 mg/dL, Very high Secondary prevention optimal LDL Cholesterol levels are recommended to be < 70 mg/dL Performed By: #### 2 4323-8, 29635-0, 3015-3 ####[facility] LABCLIA [id number] [address] [place] Cholesterol in LDL/Cholesterol in HDL [Mass ratio] 1.64 {ratio} Normal <2.54 [facility] Comment on above: Order Comment: Lea monae Type: BLOOD SPECIMENOrdering Facility: [facility] Address: [address] [place] [address] Result Comment: Jaycob engel: 1. National Cholesterol Education Program ATP III Guideline At-A-Glance Quick Desk Reference: National Heart, Lung, and Blood [place]. National Institutes of Health. 2001: NIH Publication No. 01-3305. 2. An International Atherosclerosis Society position paper: global recommendations for the management of dyslipidemia: executive summary, Atherosclerosis. 2014: 232(2):410-413. Performed By: #### 2 4323-8, 12315-2, 3 ####[facility] LABCLIA [id number] [address] [address] [place] Cholesterol in VLDL [Mass/Vol] 34 mg/dL High <30 [facility] Comment on above: Order Comment: Speci men Type: BLOOD SPECIMENOrdering Facility: [facility] Address: [address] [place] [address] Performed By: #### 2 4323-8, 48224-1, 3015-06 ####[facility] LABCLIA [id number] [place] [address] [place] Cholesterol non HDL [Mass/Vol] 124 mg/dL Normal <130 [facility] Comment on above: Order Comment: Speci men Type: BLOOD SPECIMENOrdering Facility: [facility] Address: [address] [place] [address] Result Comment: <130 mg/dL, Optimal 130-159 mg/dL, Near optimal/above optimal 160-189 mg/dL, Borderline high 190-219 mg/dL, High >219 mg/dL, Very high Secondary prevention optimal non HDL Cholesterol levels are recommended to be <100 mg/dL Performed By: #### 2 4323-8, 99000-9, 3015-06 ####[facility] LABCLIA [id number] [address] [address] [place] Cholesterol.total/Chol esterol in HDL [Mass ratio] 3.25 {ratio} Normal <5.10 [facility] Comment on above: Order Comment: Speci men Type: BLOOD SPECIMENOrdering Facility: [facility] Address: [address] [place] [id number] Performed By: #### 2 4323-8, 81199-9, 3015-06 ####[facility] LABCLIA [id number] [address] [address] [place] FASTING TIME 12 hrs Normal [facility] Comment on above: Order Comment: Speci men Type: BLOOD SPECIMENOrdering Facility: [facility] Address: [address] [place] [address] Performed By: #### 2 4323-8, 00344-2, 3015-3 ####[facility] LABCLIA [id number] [place] [address] [place] Triglyceride [Mass/Vol] 168 mg/dL High <150 [facility] Comment on above: Order Comment: Speci men Type: BLOOD SPECIMENOrdering Facility: [facility] Address: [address] [place] [address] Result Comment: <150 mg/dL, Normal 150-199 mg/dL, Borderline high 200-499 mg/dL, High >499 mg/dL, Very high Performed By: #### 2 4323-8, 71182-6, 3 ####[facility] LABCLIA [id number] [place] [address] [place] TSH SerPl-aCncon 12-14-2023 TSH Qn 4.550 m[IU]/L High 0.270-4.20 0 [facility] Comment on above: Order Comment: Speci men Type: BLOOD SPECIMENOrdering Facility: [facility] Address: [address] [place] [address] Performed By: #### 2 4323-8, 35651-2, 3 ####[facility] LABCLIA [id number] [address] [place] CNOVon 12-04-2023 CNOV Office Visit (OBGYWM ) MARI LOPEZ ([id number]) 1940 F Date Time Provider Department 12/04/23 [...] L1 SAB0 IAB0 Ectopic0 Multiple0 Live Births0 [employer]maker [employer] History LMP: Postmenopausal Age at Menarche: Age at First : 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) No date: Unspecified sleep apnea PAST SURGICAL HISTORY 04/2004,05/11: ANESTHESIA HERNIA REPAIR LOWER ABDOMEN NOS Comment: gortex put in on 05/11 then taken out06/08 1991: ARTHRP KNE CONDYLEANDPLATU MEDIALANDLAT COMPARTMENTS Comment: bilateral total knee s([place]) 10/24/04 : ARTHRP KNE CONDYLEANDPLATU MEDIALANDLAT COMPARTMENTS Comment: bilateral total knee revisions No date: DELIVERY ONLY Comment: , low cervical No date: CHOLECYSTECTOMY 11/17/2017: COLONOSCOPY FLX DX W/COLLJ SPEC WHEN PFRMD Comment: Colonoscopy 02/17/07: DEBRIDEMENT SUBCUTANEOUS TISSUE 20 SQ CM/< Comment: LEFT LEG [id number]: DEBRIDEMENT SUBCUTANEOUS TISSUE 20 SQ CM/< Comment: LEFT LEG [id number]: DEBRIDEMENT SUBCUTANEOUS TISSUE 20 SQ CM/< Comment: LEFT LEG [id number]: DEBRIDEMENT SUBCUTANEOUS TISSUE 20 SQ CM/< Comment: LEFT LEG [id number]: DEBRIDEMENT SUBCUTANEOUS TISSUE 20 SQ CM/< Comment: [...] Take 1,0 (more content not included)... Normal [facility] CBC-Complete Blood Cnt No Di ffon 12-01-2023 Erythrocyte distribution width (RBC) [Ratio] 14.3 % Normal 11.6-14.6 [facility] Comment on above: Performed By: #### L 500.3600, L509.1000, L100.0500, L506.1000, L501.0900 ####[facility] [address] [place], [address] Hematocrit (Bld) [Volume fraction] 35.4 % Low 37-47 [facility] Comment on above: Performed By: #### L 500.3600, L509.1000, L100.0500, L506.1000, L501.0900 ####[facility] [address] [place], [address] Hemoglobin (Bld) [Mass/Vol] 10.7 g/dL Low 12.0-15.0 [facility] Comment on above: Performed By: #### L 500.3600, L509.1000, L100.0500, L506.1000, L501.0900 ####[facility] [address] [place], [address] MCH (RBC) [Entitic mass] 31.8 pg Normal 27.0-32.0 [facility] Comment on above: Performed By: #### L 500.3600, L509.1000, L100.0500, L506.1000, L501.0900 ####[facility] [address] [place], [address] MCHC (RBC) [Mass/Vol] 30.2 g/dL Low 32-36 [facility] Comment on above: Performed By: #### L 500.3600, L509.1000, L100.0500, L506.1000, L501.0900 ####[facility] [address] [place], [address] MCV (RBC) [Entitic vol] 105.4 fL High 81-99 [facility] Comment on above: Performed By: #### L 500.3600, L509.1000, L100.0500, L506.1000, L501.0900 ####[facility] [address] [place], [address] Platelet mean volume (Bld) [Entitic vol] 12.3 fL High 6.2-12.0 [facility] Comment on above: Performed By: #### L 500.3600, L509.1000, L100.0500, L506.1000, L501.0900 ####[facility] [address] [place], [address] Platelets (Bld) [#/Vol] 267 10*3/uL Normal 150-450 [facility] Comment on above: Performed By: #### L 500.3600, L509.1000, L100.0500, L506.1000, L501.0900 ####[facility] [address] [place], [address] RBC (Bld) [#/Vol] 3.36 10*6/uL Low 4.2-5.4 [facility] Comment on above: Performed By: #### L 500.3600, L509.1000, L100.0500, L506.1000, L501.0900 ####[facility] [address] [place], [address] RDW SD 55.7 fl High 35.1-43.9 [facility] Comment on above: Performed By: #### L 500.3600, L509.1000, L100.0500, L506.1000, L501.0900 ####[facility] [address] [place], [address] WBC (Bld) [#/Vol] 7.9 10*3/uL Normal 4.4-11.0 [facility] Comment on above: Performed By: #### L 500.3600, L509.1000, L100.0500, L506.1000, L501.0900 ####[facility] [address] [place], [address] PTHINon 12-01-2023 PTH 195.9 pg/mL High 18.4-80.1 [facility] Comment on above: Performed By: #### L 500.3600, L509.1000, L100.0500, L506.1000, L501.0900 ####[facility] [address] [place], [address] Protein+Creatinine Ratio,Uri neon 12-01-2023 PROT:CRE RATIO 316 mg/g CRE High 0-200 [facility] Comment on above: Performed By: #### L 500.3600, L509.1000, L100.0500, L506.1000, L501.0900 ####[facility] [address] [place], [address] Protein (U) [Mass/Vol] 14.9 mg/dL High <11.9 [facility] Comment on above: Performed By: #### L 500.3600, L509.1000, L100.0500, L506.1000, L501.0900 ####[facility] [address] [place], [address] UR CREAT 47.10 mg/dL Normal NO RANGE EST. [facility] Comment on above: Performed By: #### L 500.3600, L509.1000, L100.0500, L506.1000, L501.0900 ####[facility] [address] [place], [address] Renal Profileon 12-01-2023 Albumin [Mass/Vol] 3.1 g/dL Low 3.2-5.0 [facility] Comment on above: Order Comment: PRO Performed By: #### L 500.3600, L509.1000, L100.0500, L506.1000, L501.0900 ####[facility] [address] [place], [address] BUN/CRE 42.6 RATIO High 10-20 [facility] Comment on above: Order Comment: PRO Performed By: #### L 500.3600, L509.1000, L100.0500, L506.1000, L501.0900 ####[facility] [address] [place], [address] CA,Total 8.7 mg/dL Normal 8.5-10.1 [facility] Comment on above: Order Comment: PRO Performed By: #### L 500.3600, L509.1000, L100.0500, L506.1000, L501.0900 ####[facility] [address] [place], [address] Chloride [Moles/Vol] 114 mmol/L High 98-107 [facility] Comment on above: Order Comment: PRO Performed By: #### L 500.3600, L509.1000, L100.0500, L506.1000, L501.0900 ####[facility] [address] [place], [address] CO2 [Moles/Vol] 18.0 mmol/L Low 21.0-32.0 [facility] Comment on above: Order Comment: PRO Performed By: #### L 500.3600, L509.1000, L100.0500, L506.1000, L501.0900 ####[facility] [address] [place], [address] Creatinine [Mass/Vol] 1.88 mg/dL High 0.55-1.02 [facility] Comment on above: Order Comment: PRO Result Comment: The validity of the calculated GFR GFRAA in patients over70 years has not been determined. Clinical correlation isessential. Performed By: #### L 500.3600, L509.1000, L100.0500, L506.1000, L501.0900 ####[facility] [address] [place], [address] EST GFR - AA 33 mL/min Low >60 [facility] Comment on above: Order Comment: PRO Result Comment: Afri can [place] GFR Calc Performed By: #### L 500.3600, L509.1000, L100.0500, L506.1000, L501.0900 ####[facility] [address] [place], [address] GFR/1.73 sq M.predicted among non-blacks MDRD (S/P/Bld) [Vol rate/Area] 27 mL/min/{1.73_m2} Low >60 [facility] Comment on above: Order Comment: PRO Result Comment: Non- GFR Calc Performed By: #### L 500.3600, L509.1000, L100.0500, L506.1000, L501.0900 ####[facility] [address] [place], [address] Glucose [Mass/Vol] 108 mg/dL High 74-106 [facility] Comment on above: Order Comment: PRO Result Comment: Fast ing Glucose result from 100 to 125 mg/dLsuggests IMPAIRED HOMEOSTASIS per A.D.A. criteria. Performed By: #### L 500.3600, L509.1000, L100.0500, L506.1000, L501.0900 ####[facility] [address] [place], [address] Phosphate [Mass/Vol] 4.4 mg/dL Normal 2.5-4.9 [facility] Comment on above: Order Comment: PRO Performed By: #### L 500.3600, L509.1000, L100.0500, L506.1000, L501.0900 ####[facility] [address] [place], [address] Potassium [Moles/Vol] 4.5 mmol/L Normal 3.5-5.1 [facility] Comment on above: Order Comment: PRO Performed By: #### L 500.3600, L509.1000, L100.0500, L506.1000, L501.0900 ####[facility] [address] [place], [address] Sodium [Moles/Vol] 141 mmol/L Normal 136-145 [facility] Comment on above: Order Comment: PRO Performed By: #### L 500.3600, L509.1000, L100.0500, L506.1000, L501.0900 ####[facility] [address] [place], [address] Urea nitrogen [Mass/Vol] 80 mg/dL High 7-18 [facility] Comment on above: Order Comment: PRO Performed By: #### L 500.3600, L509.1000, L100.0500, L506.1000, L501.0900 ####[facility] [address] [place], [address] Vitamin D,25 Hydroxyon 11-30 Vitamin D 25-OH 28.3 ng/mL Normal [facility] Comment on above: Result Comment: Olya min D 25(OH) Status Range Deficiency <20 ng/mL (50nmol/L) Insufficiency 20 - 30 ng/mL (50 - 75 nmol/L) Sufficiency 30 - 100 ng/mL (75 - 250 nmol/L) Toxicity >100 ng/mL (>250 nmol/L) Performed By: #### L 500.3600, L509.1000, L100.0500, L506.1000, L501.0900 ####[facility] [id number] [place], [address] [facility] MARI LOPEZ ([id number]) 1940 F Date Time Provider Department 11/18/23 ROQUE DELGADO [facility] During your visit today, we [...] 24 hr tablet Take by mouth. - Qiqvujgiqyz-Nkuqwjodz-Tsq C-Mn (GLUCOSAMINE CHONDROITIN MAXSTR) 500-400 mg cap Take 1 capsule by mouth three times daily. - COMPOUNDED PRESCRIPTION Stair lift - DAILY-LUISITO tablet TAKE 1 TABLET BY MOUTH ONCE DAILY. - hnywesb-wgoponrna-iprfsfc D3 (CALCIUM 500+D) 500 mg(1,250mg) -200 unit [...] [1003] 05/07/2005 07/12/2021 INJURY TRUNK SITE NEC [[id number]] 01/16/2006 07/01/2007 Anemia in chronic kidney disease [...] acquired [E0 (more content not included)... Normal [facility] CNOVon 11-09-2023 [facility] MARI [facility]OPE[facility] ([id number]) 1940 F Date Time Provider Department 11/09/23 9:20 AM MIR[facility]AM OROZCO [facility] During your visit today, we recorded the following information about you: Pulse Respiration Blood pressure Weight 104/minute 16/minute 106/60 99 kg Miryam Orozco APRN.ACCOUNTANT 11/09/2023 12:07 PM Signed This is a [...] Was hospitalized recently due to fecal impaction, [facility]. Doing well since discharge. Taking Miralax [...] CONDYLEANDPLATU MEDIALANDLAT COMPARTMENTS Comment: bilateral total knee s([place]) 10/24/04 : ARTHRP KNE CONDYLEANDPLATU MEDIALANDLAT COMPARTMENTS Comment: bilateral total knee revisions No date: DELIVERY ONLY Comment: , low cervical No date: CHOLECYSTECTOMY 11/17/2017: COLONOSCOPY FLX DX W/COLLJ SPEC WHEN PFRMD Comment: Colonoscopy 02/17/07: DEBRIDEMENT SUBCUTANEOUS TISSUE 20 SQ CM/< Comment: LEFT LEG [id number]: DEBRIDEMENT SUBCUTANEOUS TISSUE 20 SQ CM/< Comment: LEFT LEG [id number]: DEBRIDEMENT SUBCUTANEOUS TISSUE 20 SQ CM/< Comment: LEFT LEG [id number]: DEBRIDEMENT SUBCUTANEOUS TISSUE 20 SQ CM/< Comment: LEFT LEG [id number]: DEBRIDEMENT SUBCUTANEOUS TISSUE 20 SQ CM/< Comment: [...] (ASPIRIN, ENTER (more content not included)... Normal [facility] CNCOon 10-28-2023 CNCO Letter Text Normal [facility] CNPNon 10-28-2023 CNPN Telephone (AGSPHWG) MARI LOPEZ ([id number]) 1940 F Date Time Provider Department 10/28/23 [...] No 9. Does this procedure require a forklift driver? Yes If yes, has patient been notified that a forklift driver is needed and must be present [...] 24 hr tablet Take by mouth. - Ocazrolmfue-Wkjmqdggx-Ycl C-Mn (GLUCOSAMINE CHONDROITIN MAXSTR) 500-400 mg cap Take 1 capsule by mouth three times daily. - COMPOUNDED PRESCRIPTION Stair lift - DAILY-LUISITO tablet TAKE 1 TABLET BY MOUTH ONCE DAILY. - ejvqpbt-mklcwkogz-iofpapc D3 (CALCIUM 500+D) 500 mg(1,250mg) -200 unit [...] body m (more content not included)... Normal [facility] CNPNon 10-27-2023 CNPN Telephone (AGSPINE3) MARI LOPEZ ([id number]) 1940 F Date Time Provider Department 10/27/23 [...] other than patient: n/a Best contact number: [phone] Thank you, Francine De Souza October 27, [...] 24 hr tablet Take by mouth. - Pqtfzrrgizk-Hiizagktn-Sjj C-Mn (GLUCOSAMINE CHONDROITIN MAXSTR) 500-400 mg cap Take 1 capsule by mouth three times daily. - COMPOUNDED PRESCRIPTION Stair lift - DAILY-LUISITO tablet TAKE 1 TABLET BY MOUTH ONCE DAILY. - hefesrg-dazgwhyjs-uhxhual D3 (CALCIUM 500+D) 500 mg(1,250mg) -200 unit [...] TRUNK SITE (more content not included)... [facility] (SPAA) MARI LOPEZ ([id number]) 1940 F Date Time Provider Department 08/28/23 ROQUE DELGADO [facility] During your visit today, we [...] 24 hr tablet Take by mouth. - Ywfsriwozxg-Ymliurwji-Eki C-Mn (GLUCOSAMINE CHONDROITIN MAXSTR) 500-400 mg cap Take 1 capsule by mouth three times daily. - COMPOUNDED PRESCRIPTION Stair lift - DAILY-LUISITO tablet TAKE 1 TABLET BY MOUTH ONCE DAILY. - zmwumqv-lkviwnyjt-tcytdir D3 (CALCIUM 500+D) 500 mg(1,250mg) -200 unit [...] [1003] 05/07/2005 07/12/2021 INJURY TRUNK SITE NEC [[id number]] 01/16/2006 07/01/2007 Anemia in chronic kidney disease [...] Encounter Status:Closed by MEHDI VALDIVIA on 08/28/23 [facility] [place] 08-27-2023 CNPN Telephone (AGSPINE3) MARI LOPEZ ([id number]) 1940 F Date Time Provider Department 08/27/23 ROQUE DELGADO AGSPINE3 During your visit today, we recorded the following information about you: Hiller Sofía 08/27/2023 3:02 PM Signed ----- Message from Aaliyah Hoffman sent at 08/27/2023 2:59 PM EDT ----- Regarding: Spine/Jvvm-Czf-Jhbuilmkw for Shoulder Patient: Mari Lopez Date of : 1940 Primary Care Provider: Lizy Capone MD Patient has been identified by name and Date of (Y/N): y Patient: Mari Lopez Date of : 1940 Provider for this encounter: Lizy Capone MD Reason for the call/escalation: Patient is wanting to do R shoulder injection with delgado Was Patient Referred to [facility]/Seek Emergency Treatment (Y/N): n/a Did Patient Agree (Y/N): n/a Was An Attempt Made To Transfer The Patient To The Office (Y/N): n/a Were You Able To Reach Someone At The Office (Y/N): n/a If Yes - Patient Was Transferred To (Caregivers Name): n/a If No - Which [facility] Leadership Collar Cl[employer] Lock[employer]ch Did You Speak With Regarding This Patient: n/a Was an appointment scheduled (Y/N): n Reason patient was requesting visit (RFV/signs and symptoms/diagnosis) : injection Person calling if other than patient: n/a Return call to if other than patient: n/a Best contact number: [phone] Thank you, Aaliyah Hoffman August 27, 2023 [...] 24 hr tablet Take by mouth. - Onbpzakxnom-Whjbsqsnc-Ghg C-Mn (GLUCOSAMINE CHONDROITIN MAXSTR) 500-400 mg cap Take 1 capsule by mouth three times daily. - COMPOUNDED PRESCRIPTION Stair lift - DAILY-LUISITO tablet TAKE 1 TABLET BY MOUTH ONCE DAILY. - seddvpq-plpsiqchf-yscghbi D3 (CALCIUM 500+D) 500 mg(1,250mg) -200 unit [...] List As (more content not included)... Normal [facility] Absolute lymphocyte countOrd ered By: Ralph Haynes on 06-09-2023 Lymphocytes Auto (Unsp spec) [#/Vol] 1.80 10*3/uL 0.83-4.51 [facility] Automated lymphocyte count a s percentage of total leukocytesOrdered By: Ralph Haynes on 06-09-2023 Lymphocytes/100 WBC Auto (Unsp spec) 39.0 % 19-41 [facility] Basophil percentageOrdered B y: Ralph Haynes on 06-09-2023 Basophil percentage 4.2 mg/dL 2.5-4.9 [facility] Basophils/100 WBC (Bld) 0.7 % 0-1 [facility] Chloride [Moles/Vol] 118 mmol/L 98-107 [facility] Eosinophils/100 WBC (Bld) 8.5 % 0-5 [facility] Glucose [Mass/Vol] 83 mg/dL 74-106 [facility] Hemoglobin (Bld) [Mass/Vol] 10.2 g/dL 12.0-15.0 [facility] Monocytes/100 WBC (Bld) 8.9 % 0-10 [facility] Neutrophils (Bld) [#/Vol] 2.0 10*3/uL 2.0-7.7 [facility] Neutrophils/100 WBC (Bld) 42.7 % 47-70 [facility] Potassium [Moles/Vol] 5.0 mmol/L 3.5-5.1 [facility] Sodium [Moles/Vol] 140 mmol/L 136-145 [facility] WBC (Bld) [#/Vol] 4.6 10*3/uL 4.4-11.0 [facility] Determination of erythrocyte mean corpuscular volume (MCV)Ordered By: Ralph Haynes on 06-09-2023 MCV (RBC) [Entitic vol] 108.0 fL 81-99 [facility] Erythrocyte distribution wid th ratioOrdered By: Ralph Haynes on 06-09-2023 Erythrocyte distribution width (RBC) [Ratio] 13.7 % 11.6-14.6 [facility] Erythrocyte distribution wid th standard deviationOrdered By: Ralph Haynes on 06-09-2023 Erythrocyte distribution width (RBC) [Entitic vol] 54.6 fL 35.1-43.9 [facility] Hematocrit Auto (Bld) [Volum e fraction]Ordered By: Ralph Haynes on 06-09-2023 Hematocrit (Bld) [Volume fraction] 33.6 % 37-47 [facility] Immature granulocytes/100 WB C Auto (Bld)Ordered By: Ralph Haynes on 06-09-2023 Immature granulocytes/100 WBC (Bld) 0.200 % 0.0-0.9 [facility] Comment on above: IG% - Immature Granu locytes (promyelocytes, myelocytes and metamyelocytes) > 1% indicates that a LEFT SHIFT is Present. Laboratory - Chemistry and C hemistry - challengeOrdered By: Ralph Haynes on 06-09-2023 CO2 [Moles/Vol] 18.0 mmol/L 21.0-32.0 [facility] Magnesium [Mass/Vol] 2.5 mg/dL 1.6-2.6 [facility] Urea nitrogen/Creatinine [Mass ratio] 36.2 mg/mg 10-20 [facility] Laboratory - Hematology and Cell countsOrdered By: Ralph Haynes on 06-09-2023 MCH (RBC) [Entitic mass] 32.8 pg 27.0-32.0 [facility] MCHC (RBC) [Mass/Vol] 30.4 g/dL 32-36 [facility] Nucleated RBC/100 WBC (Bld) [Ratio] 0 % 0-5 [facility] Platelet mean volume (Bld) [Entitic vol] 12.6 fL 6.2-12.0 [facility] Platelets (Bld) [#/Vol] 188 10*3/uL 150-450 [facility] No Panel InformationOrdered By: Ralph Haynes on 06-09-2023 Estimated Creatinine Clearance Calc 30.22 ml/min [facility] Estimated GFR (MDRD) Amer 39 mL/min >60 [facility] Comment on above: GFR Calc Estimated GFR (MDRD) Non-Af Amer 32 mL/min >60 [facility] Comment on above: Non- GFR Calc RBC Auto (Bld) [#/Vol]Ordere d By: Ralph Haynes on 06-09-2023 RBC (Bld) [#/Vol] 3.11 10*6/uL 4.2-5.4 [facility] Serum or plasma calcium farheen urement (mass/volume)Ordered By: Ralph Haynes on 06-09-2023 Calcium [Mass/Vol] 8.2 mg/dL 8.5-10.1 [facility] Serum or plasma creatinine m easurement (mass/volume)Ordered By: Ralph Haynes on 06-09-2023 Creatinine [Mass/Vol] 1.63 mg/dL 0.55-1.02 [facility] Comment on above: The validity of the calculated GFR & GFRAA in patients over 70 years has not been determined. Clinical correlation is essential. Serum or plasma urea nitroge n measurement (mass/volume)Ordered By: Ralph Haynes on 06-09-2023 Urea nitrogen [Mass/Vol] 59 mg/dL 7-18 [facility] Thin prep Papanicolaou smear with manual screeningOrdered By: Ralph Haynes on 06-09-2023 Thin prep Papanicolaou smear with manual screening 4 5-15 [facility] Basophil percentageOrdered B y: Ralph Smith on 06-08-2023 Bilirubin [Mass/Vol] 0.30 mg/dL 0.20-1.00 [facility] Comment on above: For patients on eltr ombopag therapy, use of Dimension Leslie TBIL is not recommended. Protein [Mass/Vol] 6.5 g/dL 6.4-8.2 [facility] Laboratory - Chemistry and C hemistry - challengeOrdered By: Ralph Smith on 06-08-2023 Albumin/Globulin [Mass ratio] 0.9 {ratio} 0.9-2.4 [facility] ALP [Catalytic activity/Vol] 82 U/L 45-117 [facility] ALT [Catalytic activity/Vol] 26 U/L 13-56 [facility] Globulin (S) [Mass/Vol] 3.4 g/dL 2.2-4.2 [facility] Serum or plasma thyroid stim ulating hormone (TSH) measurement (units/volume)Ordered By: Ralph Smith on 06-08-2023 TSH Qn 5.75 uIU/mL 0.358-3.74 [facility] Thin prep Papanicolaou smear with manual screeningOrdered By: Ralph Smith on 06-08-2023 Thin prep Papanicolaou smear with manual screening 3.1 g/dL 3.2-5.0 [facility] Thin prep Papanicolaou smear with manual screening 27 U/L 15-37 [facility] Absolute lymphocyte countOrd ered By: Weston Delacruz on 06-07-2023 Lymphocytes Auto (Unsp spec) [#/Vol] 1.14 10*3/uL 0.83-4.51 [facility] Automated lymphocyte count a s percentage of total leukocytesOrdered By: Weston Delacruz on 06-07-2023 Lymphocytes/100 WBC Auto (Unsp spec) 14.2 % 19-41 [facility] Basophil percentageOrdered B y: Weston Delacruz on 06-07-2023 Basophils/100 WBC (Bld) 1.0 % 0-1 [facility] Bilirubin [Mass/Vol] 0.40 mg/dL 0.20-1.00 [facility] Comment on above: For patients on eltr ombopag therapy, use of Dimension Leslie TBIL is not recommended. Chloride [Moles/Vol] 112 mmol/L 98-107 [facility] Eosinophils/100 WBC (Bld) 3.9 % 0-5 [facility] Glucose [Mass/Vol] 102 mg/dL 74-106 [facility] Comment on above: Fasting Glucose resu lt from 100 to 125 mg/dL suggests IMPAIRED HOMEOSTASIS per A.D.A. criteria. Hemoglobin (Bld) [Mass/Vol] 12.6 g/dL 12.0-15.0 [facility] Monocytes/100 WBC (Bld) 5.8 % 0-10 [facility] Neutrophils (Bld) [#/Vol] 6.0 10*3/uL 2.0-7.7 [facility] Neutrophils/100 WBC (Bld) 74.9 % 47-70 [facility] Potassium [Moles/Vol] 4.6 mmol/L 3.5-5.1 [facility] Comment on above: Moderate Hemolysis, Result may be falsely increased. Protein [Mass/Vol] 7.6 g/dL 6.4-8.2 [facility] Sodium [Moles/Vol] 139 mmol/L 136-145 [facility] WBC (Bld) [#/Vol] 8.1 10*3/uL 4.4-11.0 [facility] Determination of erythrocyte mean corpuscular volume (MCV)Ordered By: Weston Delacruz on 06-07-2023 MCV (RBC) [Entitic vol] 107.3 fL 81-99 [facility] Erythrocyte distribution wid th ratioOrdered By: Weston Delacruz on 06-07-2023 Erythrocyte distribution width (RBC) [Ratio] 13.7 % 11.6-14.6 [facility] Erythrocyte distribution wid th standard deviationOrdered By: Weston Delacruz on 06-07-2023 Erythrocyte distribution width (RBC) [Entitic vol] 54.8 fL 35.1-43.9 [facility] Hematocrit Auto (Bld) [Volum e fraction]Ordered By: Weston Delacruz on 06-07-2023 Hematocrit (Bld) [Volume fraction] 41.1 % 37-47 [facility] Immature granulocytes/100 WB C Auto (Bld)Ordered By: Weston Delacruz on 06-07-2023 Immature granulocytes/100 WBC (Bld) 0.200 % 0.0-0.9 [facility] Comment on above: IG% - Immature Granu locytes (promyelocytes, myelocytes and metamyelocytes) > 1% indicates that a LEFT SHIFT is Present. Laboratory - Chemistry and C hemistry - challengeOrdered By: Weston Delacruz on 06-07-2023 Albumin/Globulin [Mass ratio] 0.9 {ratio} 0.9-2.4 [facility] ALP [Catalytic activity/Vol] 82 U/L 45-117 [facility] ALT [Catalytic activity/Vol] 23 U/L 13-56 [facility] CO2 [Moles/Vol] 20.0 mmol/L 21.0-32.0 [facility] Globulin (S) [Mass/Vol] 3.9 g/dL 2.2-4.2 [facility] Urea nitrogen/Creatinine [Mass ratio] 36.0 mg/mg 10-20 [facility] Laboratory - Hematology and Cell countsOrdered By: Weston Delacruz on 06-07-2023 MCH (RBC) [Entitic mass] 32.9 pg 27.0-32.0 [facility] MCHC (RBC) [Mass/Vol] 30.7 g/dL 32-36 [facility] Nucleated RBC/100 WBC (Bld) [Ratio] 0 % 0-5 [facility] Platelet mean volume (Bld) [Entitic vol] 12.5 fL 6.2-12.0 [facility] Platelets (Bld) [#/Vol] 248 10*3/uL 150-450 [facility] No Panel InformationOrdered By: Weston Delacruz on 06-07-2023 Estimated Creatinine Clearance Calc 19.95 ml/min [facility] Estimated GFR (MDRD) Amer 25 mL/min >60 [facility] Comment on above: GFR Calc Estimated GFR (MDRD) Non-Af Amer 20 mL/min >60 [facility] Comment on above: Non- GFR Calc RBC Auto (Bld) [#/Vol]Ordere d By: Weston Delacruz on 06-07-2023 RBC (Bld) [#/Vol] 3.83 10*6/uL 4.2-5.4 [facility] Serum or plasma calcium farheen urement (mass/volume)Ordered By: Weston Delacruz on 06-07-2023 Calcium [Mass/Vol] 9.3 mg/dL 8.5-10.1 [facility] Serum or plasma creatinine m easurement (mass/volume)Ordered By: Weston Delacruz on 06-07-2023 Creatinine [Mass/Vol] 2.42 mg/dL 0.55-1.02 [facility] Comment on above: The validity of the calculated GFR & GFRAA in patients over 70 years has not been determined. Clinical correlation is essential. Serum or plasma urea nitroge n measurement (mass/volume)Ordered By: Weston Delacruz on 06-07-2023 Urea nitrogen [Mass/Vol] 87 mg/dL 7-18 [facility] Thin prep Papanicolaou smear with manual screeningOrdered By: Weston Delacruz on 06-07-2023 Thin prep Papanicolaou smear with manual screening 3.7 g/dL 3.2-5.0 [facility] Thin prep Papanicolaou smear with manual screening 23 U/L 15-37 [facility] Comment on above: Moderate Hemolysis, Result may be falsely increased. Thin prep Papanicolaou smear with manual screening 7 5-15 [facility] CNCOon 06-04-2023 CNCO Letter Text Normal [facility] CNPNon 06-04-2023 CJN Telephone (SPAGWO) MARI LOPEZ ([id number]) 1940 F Date Time Provider Department 06/04/23 [...] Yes 9. Does this procedure require a forklift driver? Yes If yes, has patient been notified that a forklift driver is needed and must be present [...] to take for RFA. Instructed patient to pickling operator and bring to appointment as it must be taken under the supervision of our clinical staff. 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 Routed to Rebekah to send in medication. Rebekah Barrett, NANCI.ACCOUNTANT 06/04/2023 1:31 PM Signed oarrs was checked- no medication discrepancy or aberrations noted Xanax sent Rebekah Bobo APRN.ACCOUNTANT Lora Valles LPN 06/04/2023 1:40 PM Signed [...] Date Reviewed: 06/02/2023 Reviewed by: Rebekah Bobo APRN.ACCOUNTANT - Fully Assessed Reason for Visit: Injection [...] 24 hr tablet Take by mouth. - Agufdrthadk-Dtyjqhmbw-Jez C-Mn (GLUCOSAMINE CHONDROITIN MAXSTR) 500-400 mg cap Take 1 capsule by mouth three times daily. - COMPOUNDED PRESCRIPTION Stair lift - DAILY-LUISITO tablet TAKE 1 TABLET BY MOUTH ONCE DAILY. - deiirkv-zhhzymbbm-xubvjry D3 (CALCIUM 500+D) 500 mg(1,250mg) -200 unit per tablet Take 1 tablet by mouth twice daily with meals. - vitamin b comple (more content not included)... Normal [facility]AG[facility] MARI LOPEZ ([id number]) 1940 F Date Time Provider Department 05/20/23 [...] 24 hr tablet Take by mouth. - Iczltylumjt-Okvtoyepp-Wtv C-Mn (GLUCOSAMINE CHONDROITIN MAXSTR) 500-400 mg cap Take 1 capsule by mouth three times daily. - COMPOUNDED PRESCRIPTION Stair lift - DAILY-LUISITO tablet TAKE 1 TABLET BY MOUTH ONCE DAILY. - cvxgqkf-eljkssmmb-dtlucyu D3 (CALCIUM 500+D) 500 mg(1,250mg) -200 unit [...] [1003] 05/07/2005 07/12/2021 INJURY TRUNK SITE NEC [[id number]] 01/16/2006 07/01/2007 Anemia in chronic kidney disease [...] Encounter Status:Closed by JORJE NAGEL on 05/20/23 [facility] US OTHER-INJECTION (POC) DONATO USE ONLYon 05-18-2023 [facility] CNCOon 04-16-2023 CNCO Letter Text [facility] CNOVon 04-16-2023 CNOV Office Visit (SPAGWO ) MARI LOPEZ ([id number]) 1940 F Date Time Provider Department 04/16/23 8:15 AM ROQUE DELGADO During your visit today, we recorded the following information about you: Pulse Respiration Weight 73/minute 16/minute 98.9 kg Roque Delgado MD 04/16/2023 8:43 AM Signed [facility] Today's Date: 04/16/2023 Last visit: 01/15/2023 DH [...] current dose Flexeril 10mg TID PRN Functional Pentec[employer]al: No changes-continue current regimen Additional Studies: X-ray [...] - Initial HPI (Obtained by Avis Marrufo APRN.ACCOUNTANT ). From 03/2022 - She previously inquired [...] BL L4/5 (more content not included)... Normal [facility] CNPNon 04-16-2023 CNPN Telephone (SPAGWO) MARI LOPEZ ([id number]) 1940 F Date Time Provider Department 04/16/23 [...] No 9. Does this procedure require a forklift driver? Yes If yes, has patient been notified that a forklift driver is needed and must be present [...] 24 hr tablet Take by mouth. - Zdtyplvaghj-Ekdefrmwh-Pwe C-Mn (GLUCOSAMINE CHONDROITIN MAXSTR) 500-400 mg cap Take 1 capsule by mouth three times daily. - COMPOUNDED PRESCRIPTION Stair lift - DAILY-LUISITO tablet TAKE 1 TABLET BY MOUTH ONCE DAILY. - jyvhwrx-terpzydko-rbhhaxc D3 (CALCIUM 500+D) 500 mg(1,250mg) -200 unit [...] zinc, Glucosamine-chondroitin (more content not included)... Normal [facility] XR Chest PA and Lateralon IMPRESSION: No acute radiographic abnormality. Typewriter Repairer: CHEIKH Transcribe Date/Time: Mar 31 2023 11:37A [...] the thoracic spine. DIVISION OF RADIOLOGY Provider, [facility] - 03/31/2023 * * *Final Report* * [...] spine. IMPRESSION IMPRESSION: No acute radiographic abnormality. Typewriter Repairer: PSCB Transcribe Date/Time: Mar 31 2023 11:37A Dictated by : JOSHUA BURNETT MD This examination was interpreted and the report reviewed and electronically signed by: JOSHUA BURNETT MD on Mar 31 2023 11:37AM EST [facility] Radiology Study observation (narrative) [facility] XR Chest PA and LateralOrder ed By: [facility]cf Provider on 03-31-2023 [facility] CNOVon 01-15-2023 CNOV Office Visit (SPAGWO ) MARI LOPEZ ([id number]) 1940 F Date Time Provider Department 01/15/23 8:30 AM ROQUE DELGADO SPAGWO During your visit today, we recorded the following information about you: Pulse Respiration 71/minute 18/minute Roque Delgado MD 01/15/2023 8:58 AM Signed [facility] [place] General Name: Mari Lopez : 1940 Purpose: [...] are with (more content not included)... Normal [facility] CNPNon 01-15-2023 CNPN Telephone (SPAGWO) MARI LOPEZ ([id number]) 1940 F Date Time Provider Department 01/15/23 ROQUE DELGADO [facility] During your visit today, we recorded the [...] No 9. Does this procedure require a forklift driver? No If yes, has patient been notified that a forklift driver is needed and must be present [...] CAPSULE BY MOUTH THREE TIMES DAILY. - xhrvfza-gjnxcvrrd-bvsobvm D3 (CALCIUM 500+D) 500 mg(1,250mg) -200 unit [...] 1 tablet by mouth every afternoon. - Lopffqkdope-Mmfokrfhd-Ewi C-Mn (GLUCOSAMINE CHONDROITIN MAXSTR) 500-400 mg cap [...] ASTHMA UNSPEC (more content not included)... Normal [facility] XR SHOULDER LIMITED 2V AP/TR UE AP LEFTon 01-15-2023 [facility] XR SHOULDER [id number] AP/BRENDAN E AP RIGHTon 01-15-2023 [facility] Basophil percentageOrdered B y: Gautam Hardy on 10-15-2022 Basophil percentage 4.2 mg/dL 2.5-4.9 [facility] Chloride [Moles/Vol] 110 mmol/L 98-107 [facility] Glucose [Mass/Vol] 83 mg/dL 74-106 [facility] Potassium [Moles/Vol] 4.2 mmol/L 3.5-5.1 [facility] Sodium [Moles/Vol] 141 mmol/L 136-145 [facility] Laboratory - Chemistry and C hemistry - challengeOrdered By: Gautam Hardy on 10-15-2022 CO2 [Moles/Vol] 25.0 mmol/L 21.0-32.0 [facility] Urea nitrogen/Creatinine [Mass ratio] 25.4 mg/mg 10-20 [facility] No Panel InformationOrdered By: Gautam Hardy on 10-15-2022 Estimated GFR (MDRD) Amer 46 mL/min >60 [facility] Comment on above: GFR Calc Estimated GFR (MDRD) Non-Af Amer 38 mL/min >60 [facility] Comment on above: Non- GFR Calc Serum or plasma albumin farheen urement (mass/volume)Ordered By: Gautam Hardy on 10-15-2022 Albumin [Mass/Vol] 3.1 g/dL 3.2-5.0 [facility] Serum or plasma calcium farheen urement (mass/volume)Ordered By: Gautam Hardy on 10-15-2022 Calcium [Mass/Vol] 8.4 mg/dL 8.5-10.1 [facility] Serum or plasma creatinine m easurement (mass/volume)Ordered By: Gautam Hardy on 10-15-2022 Creatinine [Mass/Vol] 1.42 mg/dL 0.55-1.02 [facility] Comment on above: The validity of the calculated GFR & GFRAA in patients over 70 years has not been determined. Clinical correlation is essential. Serum or plasma urea nitroge n measurement (mass/volume)Ordered By: Gautam Hardy on 10-15-2022 Urea nitrogen [Mass/Vol] 36 mg/dL 7-18 [facility] XR FOOT GENERAL 3V AP/LAT/OB L RIGHTon 07-31-2022 [facility] Absolute lymphocyte countOrd ered By: Dr. Jackson on 07-25-2022 Lymphocytes Auto (Unsp spec) [#/Vol] 1.41 10*3/uL 0.83-4.51 [facility] Basophil percentageOrdered B y: Dr. Jackson on 07-25-2022 Basophils/100 WBC (Bld) 0.8 % 0-1 [facility] Chloride [Moles/Vol] 110 mmol/L 98-107 [facility] Eosinophils/100 WBC (Bld) 3.4 % 0-5 [facility] Glucose [Mass/Vol] 92 mg/dL 74-106 [facility] Neutrophils (Bld) [#/Vol] 4.4 10*3/uL 2.0-7.7 [facility] Neutrophils/100 WBC (Bld) 67.6 % 47-70 [facility] Potassium [Moles/Vol] 4.4 mmol/L 3.5-5.1 [facility] Comment on above: Slight Hemolysis, Re sult may be falsely increased. Sodium [Moles/Vol] 139 mmol/L 136-145 [facility] WBC (Bld) [#/Vol] 6.5 10*3/uL 4.4-11.0 [facility] Blood erythrocytes count (nu mber/volume)Ordered By: Dr. Jackson on 07-25-2022 RBC (Bld) [#/Vol] 3.79 10*6/uL 4.2-5.4 [facility] Blood hemoglobin measurement (mass/volume)Ordered By: Dr. Jackson on 07-25-2022 Hemoglobin (Bld) [Mass/Vol] 12.8 g/dL 12.0-15.0 [facility] Blood lymphocytes/100 leukoc ytesOrdered By: Dr. Jackson on 07-25-2022 Lymphocytes/100 WBC (Bld) 21.7 % 19-41 [facility] Blood monocytes/100 leukocyt esOrdered By: Dr. Jackson on 07-25-2022 Monocytes/100 WBC (Bld) 6.2 % 0-10 [facility] Blood platelet mean volumeOr dered By: Dr. Jackson on 07-25-2022 Platelet mean volume (Bld) [Entitic vol] 12.8 fL 6.2-12.0 [facility] Determination of erythrocyte mean corpuscular volume (MCV)Ordered By: Dr. Jackson on 07-25-2022 MCV (RBC) [Entitic vol] 108.4 fL 81-99 [facility] Hematocrit Auto (Bld) [Volum e fraction]Ordered By: Dr. Jackson on 07-25-2022 Hematocrit (Bld) [Volume fraction] 41.1 % 37-47 [facility] Laboratory - Chemistry and C hemistry - challengeOrdered By: Dr. Jackson on 07-25-2022 CO2 [Moles/Vol] 29.0 mmol/L 21.0-32.0 [facility] Urea nitrogen/Creatinine [Mass ratio] 28.7 mg/mg 10-20 [facility] Laboratory - Hematology and Cell countsOrdered By: Dr. Jackson on 07-25-2022 Erythrocyte distribution width (RBC) [Entitic vol] 51.3 fL 35.1-43.9 [facility] Erythrocyte distribution width (RBC) [Ratio] 12.8 % 11.6-14.6 [facility] Immature granulocytes/100 WBC (Bld) 0.300 % 0.0-0.9 [facility] Comment on above: IG% - Immature Granu locytes (promyelocytes, myelocytes and metamyelocytes) > 1% indicates that a LEFT SHIFT is Present. MCH (RBC) [Entitic mass] 33.8 pg 27.0-32.0 [facility] Nucleated RBC/100 WBC (Bld) [Ratio] 0 % 0-5 [facility] MCHC Auto (RBC) [Mass/Vol]Or dered By: Dr. Jackson on 07-25-2022 MCHC (RBC) [Mass/Vol] 31.1 g/dL 32-36 [facility] No Panel InformationOrdered By: Dr. Jackson on 07-25-2022 Estimated GFR (MDRD) Amer 51 mL/min >60 [facility] Comment on above: GFR Calc Estimated GFR (MDRD) Non-Af Amer 42 mL/min >60 [facility] Comment on above: Non- GFR Calc Platelets bldOrdered By: Dr. Jackson on 07-25-2022 Platelets (Bld) [#/Vol] 219 10*3/uL 150-450 [facility] Serum or plasma calcium farheen urement (mass/volume)Ordered By: Dr. Jackson on 07-25-2022 Calcium [Mass/Vol] 8.8 mg/dL 8.5-10.1 [facility] Serum or plasma creatinine m easurement (mass/volume)Ordered By: Dr. Jackson on 07-25-2022 Creatinine [Mass/Vol] 1.29 mg/dL 0.55-1.02 [facility] Comment on above: The validity of the calculated GFR & GFRAA in patients over 70 years has not been determined. Clinical correlation is essential. Serum or plasma urea nitroge n measurement (mass/volume)Ordered By: Dr. Jackson on 07-25-2022 Urea nitrogen [Mass/Vol] 37 mg/dL 7-18 [facility] Thin prep Papanicolaou smear with manual screeningOrdered By: Dr. Jackson on 07-25-2022 Thin prep Papanicolaou smear with manual screening 0 5-15 [facility] Basophil percentageOrdered B y: Dr. Acosta on 06-11-2022 Chloride [Moles/Vol] 110 mmol/L 98-107 [facility] Glucose [Mass/Vol] 105 mg/dL 74-106 [facility] Comment on above: Fasting Glucose resu lt from 100 to 125 mg/dL suggests IMPAIRED HOMEOSTASIS per A.D.A. criteria. Potassium [Moles/Vol] 4.1 mmol/L 3.5-5.1 [facility] Sodium [Moles/Vol] 142 mmol/L 136-145 [facility] Laboratory - Chemistry and C hemistry - challengeOrdered By: Dr. Acosta on 06-11-2022 CO2 [Moles/Vol] 25.0 mmol/L 21.0-32.0 [facility] Urea nitrogen/Creatinine [Mass ratio] 26.4 mg/mg 10-20 [facility] No Panel InformationOrdered By: Dr. Acosta on 06-11-2022 Estimated GFR (MDRD) Amer 55 mL/min >60 [facility] Comment on above: GFR Calc Estimated GFR (MDRD) Non-Af Amer 46 mL/min >60 [facility] Comment on above: Non- GFR Calc Serum or plasma calcium farheen urement (mass/volume)Ordered By: Dr. Acosta on 06-11-2022 Calcium [Mass/Vol] 8.8 mg/dL 8.5-10.1 [facility] Serum or plasma creatinine m easurement (mass/volume)Ordered By: Dr. Acosta on 06-11-2022 Creatinine [Mass/Vol] 1.21 mg/dL 0.55-1.02 [facility] Comment on above: The validity of the calculated GFR & GFRAA in patients over 70 years has not been determined. Clinical correlation is essential. Serum or plasma urea nitroge n measurement (mass/volume)Ordered By: Dr. Acosta on 06-11-2022 Urea nitrogen [Mass/Vol] 32 mg/dL 7-18 [facility] Thin prep Papanicolaou smear with manual screeningOrdered By: Dr. Acosta on 06-11-2022 Thin prep Papanicolaou smear with manual screening 7 5-15 [facility] Basophil percentageOrdered B y: Dr. Acosta on 05-14-2022 Basophil percentage 2.9 mg/dL 2.5-4.9 [facility] Chloride [Moles/Vol] 111 mmol/L 98-107 [facility] Glucose [Mass/Vol] 117 mg/dL 74-106 [facility] Comment on above: Fasting Glucose resu lt from 100 to 125 mg/dL suggests IMPAIRED HOMEOSTASIS per A.D.A. criteria. Potassium [Moles/Vol] 3.7 mmol/L 3.5-5.1 [facility] Sodium [Moles/Vol] 143 mmol/L 136-145 [facility] Laboratory - Chemistry and C hemistry - challengeOrdered By: Dr. Acosta on 05-14-2022 CO2 [Moles/Vol] 21.0 mmol/L 21.0-32.0 [facility] Urea nitrogen/Creatinine [Mass ratio] 28.0 mg/mg 10-20 [facility] No Panel InformationOrdered By: Dr. Acosta on 05-14-2022 Estimated GFR (MDRD) Amer 39 mL/min >60 [facility] Comment on above: GFR Calc Estimated GFR (MDRD) Non-Af Amer 32 mL/min >60 [facility] Comment on above: Non- GFR Calc Serum or plasma albumin farheen urement (mass/volume)Ordered By: Dr. Acosta on 05-14-2022 Albumin [Mass/Vol] 3.0 g/dL 3.2-5.0 [facility] Serum or plasma calcium farheen urement (mass/volume)Ordered By: Dr. Acosta on 05-14-2022 Calcium [Mass/Vol] 8.8 mg/dL 8.5-10.1 [facility] Serum or plasma creatinine m easurement (mass/volume)Ordered By: Dr. Acosta on 05-14-2022 Creatinine [Mass/Vol] 1.64 mg/dL 0.55-1.02 [facility] Comment on above: The validity of the calculated GFR & GFRAA in patients over 70 years has not been determined. Clinical correlation is essential. Serum or plasma urea nitroge n measurement (mass/volume)Ordered By: Dr. Acosta on 05-14-2022 Urea nitrogen [Mass/Vol] 46 mg/dL 7-18 [facility] No Panel Informationon 05-13 [facility] No Panel Informationon 04-29 [facility] Culture, urineOrdered By: Dr Luis Fernando Acosta on 03-20-2022 Bacteria identified Cx Nom (U) Positive [facility] Basophil percentageOrdered B y: Dr. Acosta on 03-19-2022 Basophil percentage 3.5 mg/dL 2.5-4.9 [facility] Chloride [Moles/Vol] 113 mmol/L 98-107 [facility] Glucose [Mass/Vol] 104 mg/dL 74-106 [facility] Comment on above: Fasting Glucose resu lt from 100 to 125 mg/dL suggests IMPAIRED HOMEOSTASIS per A.D.A. criteria. Potassium [Moles/Vol] 4.6 mmol/L 3.5-5.1 [facility] Comment on above: Slight Hemolysis, Re sult may be falsely increased. Sodium [Moles/Vol] 142 mmol/L 136-145 [facility] Laboratory - Chemistry and C hemistry - challengeOrdered By: Dr. Acosta on 03-19-2022 CO2 [Moles/Vol] 18.0 mmol/L 21.0-32.0 [facility] Urea nitrogen/Creatinine [Mass ratio] 36.2 mg/mg 10-20 [facility] No Panel InformationOrdered By: Dr. Acosta on 03-19-2022 Estimated GFR (MDRD) Amer 47 mL/min >60 [facility] Comment on above: GFR Calc Estimated GFR (MDRD) Non-Af Amer 39 mL/min >60 [facility] Comment on above: Non- GFR Calc Serum or plasma albumin farheen urement (mass/volume)Ordered By: Dr. Acosta on 03-19-2022 Albumin [Mass/Vol] 3.3 g/dL 3.2-5.0 [facility] Serum or plasma calcium farheen urement (mass/volume)Ordered By: Dr. Acosta on 03-19-2022 Calcium [Mass/Vol] 8.8 mg/dL 8.5-10.1 [facility] Serum or plasma creatinine m easurement (mass/volume)Ordered By: Dr. Acosta on 03-19-2022 Creatinine [Mass/Vol] 1.38 mg/dL 0.55-1.02 [facility] Comment on above: The validity of the calculated GFR & GFRAA in patients over 70 years has not been determined. Clinical correlation is essential. Serum or plasma urea nitroge n measurement (mass/volume)Ordered By: Dr. Acosta on 03-19-2022 Urea nitrogen [Mass/Vol] 50 mg/dL 7-18 [facility] Culture, urineOrdered By: Dr Luis Fernando Acosta on 03-08-2022 Bacteria identified Cx Nom (U) Escherichia coli [facility] Basophil percentageOrdered B y: Dr. Jackson on 03-04-2022 Basophil percentage 10-25 SEEN /hpf 0-5 [facility] Basophil percentage 3.7 mg/dL 2.5-4.9 [facility] Bilirubin [Mass/Vol] 0.40 mg/dL 0.20-1.00 [facility] Comment on above: For patients on eltr ombopag therapy, use of Dimension Leslie TBIL is not recommended. Chloride [Moles/Vol] 115 mmol/L 98-107 [facility] Cholesterol [Mass/Vol] 162 mg/dL <200 [facility] Comment on above: <200 mg/dL Desirable 200-240 mg/dL Borderline >240 mg/dL High Risk Glucose [Mass/Vol] 102 mg/dL 74-106 [facility] Comment on above: Fasting Glucose resu lt from 100 to 125 mg/dL suggests IMPAIRED HOMEOSTASIS per A.D.A. criteria. Potassium [Moles/Vol] 4.0 mmol/L 3.5-5.1 [facility] Protein [Mass/Vol] 6.8 g/dL 6.4-8.2 [facility] Sodium [Moles/Vol] 145 mmol/L 136-145 [facility] Triglyceride [Mass/Vol] 312 mg/dL <199 [facility] Comment on above: The drugs N-Acetylcy steine and Metamizole may falsely depress this assay.Serum Triglycerides Reference Interval Normal <150 mg/dL Borderline high 150 - 199 mg/dL High 200 - 499 mg/dL Very High > or = 500 mg/dL Bilirubin Test strip Ql (U)O rdered By: Dr. Jackson on 03-04-2022 Bilirubin Ql (U) Negative Negative [facility] Direct bilirubinOrdered By: Dr. Jackson on 03-04-2022 Bilirubin.direct [Mass/Vol] 0.13 mg/dL 0.00-0.30 [facility] Ketones Test strip Ql (U)Ord ered By: Dr. Jackson on 03-04-2022 Ketones Ql (U) Negative Negative [facility] Laboratory - Chemistry and C hemistry - challengeOrdered By: Dr. Jackson on 03-04-2022 ALP [Catalytic activity/Vol] 78 U/L 45-117 [facility] ALT [Catalytic activity/Vol] 25 U/L 13-56 [facility] CO2 [Moles/Vol] 23.0 mmol/L 21.0-32.0 [facility] Globulin (S) [Mass/Vol] 3.8 g/dL 2.2-4.2 [facility] Urea nitrogen/Creatinine [Mass ratio] 26.4 mg/mg 10-20 [facility] Mucus LM Ql (Urine sed)Order ed By: Dr. Jackson on 03-04-2022 Mucus Ql (Urine sed) 0 SEEN /hpf [facility] Nitrite Test strip Ql (U)Ord ered By: Dr. Jackson on 03-04-2022 Nitrite Ql (U) Positive Negative [facility] No Panel InformationOrdered By: Dr. Jackson on 03-04-2022 Estimated GFR (MDRD) Amer 39 mL/min >60 [facility] Comment on above: GFR Calc Estimated GFR (MDRD) Non-Af Amer 32 mL/min >60 [facility] Comment on above: Non- GFR Calc Protein Test strip Ql (U)Ord ered By: Dr. Jackson on 03-04-2022 Protein Ql (U) 15 mg/dl Negative [facility] Serum or plasma albumin farheen urement (mass/volume)Ordered By: Dr. Jackson on 03-04-2022 Albumin [Mass/Vol] 3.0 g/dL 3.2-5.0 [facility] Serum or plasma calcium farheen urement (mass/volume)Ordered By: Dr. Jackson on 03-04-2022 Calcium [Mass/Vol] 8.4 mg/dL 8.5-10.1 [facility] Serum or plasma cholesterol in HDL measurement (mass/volume)Ordered By: Dr. Jackson on 03-04-2022 Cholesterol in HDL [Mass/Vol] 51 mg/dL >40 [facility] Comment on above: The drugs N-Acetylcy steine and Metamizole may falsely depress this assay. Reference Range HDL <40 mg/dL Low HDL Cholesterol HDL >or= 60 mg/dL High HDL Cholesterol Serum or plasma cholesterol in VLDL measurement (mass/volume)Ordered By: Dr. Jackson on 03-04-2022 Cholesterol in VLDL [Mass/Vol] 62 mg/dL 5-40 [facility] Serum or plasma creatinine m easurement (mass/volume)Ordered By: Dr. Jackson on 03-04-2022 Creatinine [Mass/Vol] 1.63 mg/dL 0.55-1.02 [facility] Comment on above: The validity of the calculated GFR & GFRAA in patients over 70 years has not been determined. Clinical correlation is essential. Serum or plasma low density lipoprotein (LDL) cholesterol measurement (mass/volume)Ordered By: Dr. Jackson on 03-04-2022 Cholesterol in LDL [Mass/Vol] 49 mg/dL 0-130 [facility] Serum or plasma urea nitroge n measurement (mass/volume)Ordered By: Dr. Jackson on 03-04-2022 Urea nitrogen [Mass/Vol] 43 mg/dL 7-18 [facility] Squamous epithelial cells de tection in urine sediment by light microscopyOrdered By: Dr. Jackson on 03-04-2022 Epithelial cells.squamous LM Ql (Urine sed) 0-5 SEEN /hpf 5-10 [facility] Thin prep Papanicolaou smear with manual screeningOrdered By: Dr. Jackson on 03-04-2022 Thin prep Papanicolaou smear with manual screening 19 U/L 15-37 [facility] Thin prep Papanicolaou smear with manual screening 7 5-15 [facility] Urine blood detectionOrdered By: Dr. Jackson on 03-04-2022 RBC Ql (U) 25 /ul Negative [facility] RBC Ql (U) 0 SEEN /hpf 0-5 [facility] Urine clarityOrdered By: Dr. Jackson on 03-04-2022 Clarity (U) Sl. Cloudy Clear [facility] Urine color determinationOrd ered By: Dr. Jackson on 03-04-2022 Color (U) Yellow Yellow [facility] Urine glucose detectionOrder ed By: Dr. Jackson on 03-04-2022 Glucose Ql (U) Normal mg/dl Normal [facility] Urine leukocyte esterase det ection by dipstickOrdered By: Dr. Jackson on 03-04-2022 Leukocyte esterase Test strip Ql (U) 500 /ul Negative [facility] Urine pHOrdered By: Dr. Marge castle on 03-04-2022 pH (U) 5.0 [pH] 5.0 - 8.0 [facility] Urine sediment bacteria coun t by microscopy (number/high power field)Ordered By: Dr. Jackson on 03-04-2022 Bacteria LM.HPF (Urine sed) [#/Area] 1 /[HPF] None Seen [facility] Urine specific gravity measu rementOrdered By: Dr. Jackson on 03-04-2022 Specific gravity (U) [Rel density] 1.015 1.002-1.03 0 [facility] Urobilinogen Auto test strip Ql (U)Ordered By: Dr. Jackson on 03-04-2022 Urobilinogen Ql (U) Normal mg/dl Normal [facility] Basophil percentageOrdered B y: Dr. Jackson on 01-28-2022 Chloride [Moles/Vol] 111 mmol/L 98-107 [facility] Glucose [Mass/Vol] 93 mg/dL 74-106 [facility] Potassium [Moles/Vol] 4.2 mmol/L 3.5-5.1 [facility] Sodium [Moles/Vol] 142 mmol/L 136-145 [facility] Laboratory - Chemistry and C hemistry - challengeOrdered By: Dr. Jackson on 01-28-2022 CO2 [Moles/Vol] 25.0 mmol/L 21.0-32.0 [facility] Urea nitrogen/Creatinine [Mass ratio] 30.1 mg/mg 10 [facility] No Panel InformationOrdered By: Dr. Jackson on 01-28-2022 Estimated GFR (MDRD) Amer 48 mL/min >60 [facility] Comment on above: GFR Calc Estimated GFR (MDRD) Non-Af Amer 40 mL/min >60 [facility] Comment on above: Non- GFR Calc Serum or plasma calcium farheen urement (mass/volume)Ordered By: Dr. Jackson on 01-28-2022 Calcium [Mass/Vol] 8.7 mg/dL 8.5-10.1 [facility] Serum or plasma creatinine m easurement (mass/volume)Ordered By: Dr. Jackson on 01-28-2022 Creatinine [Mass/Vol] 1.36 mg/dL 0.55-1.02 [facility] Comment on above: The validity of the calculated GFR & GFRAA in patients over 70 years has not been determined. Clinical correlation is essential. Serum or plasma urea nitroge n measurement (mass/volume)Ordered By: Dr. Jackson on 01-28-2022 Urea nitrogen [Mass/Vol] 41 mg/dL 7-18 [facility] Thin prep Papanicolaou smear with manual screeningOrdered By: Dr. Jackson on 01-28-2022 Thin prep Papanicolaou smear with manual screening 6 5-15 [facility] US ABDOMEN COMPLETEon 2021 [facility] Absolute lymphocyte counton 12-26-2021 Lymphocytes Auto (Unsp spec) [#/Vol] 1.35 10*3/uL 0.83-4.51 [facility] Work Phone: Basophil percentageon 2021 Basophils/100 WBC (Bld) 0.7 % 0-1 [facility] Work Phone: Bilirubin [Mass/Vol] 0.30 mg/dL 0.20-1.00 [facility] Work Phone: Comment on above: For patients on eltr ombopag therapy, use of Dimension Leslie TBIL is not recommended. Chloride [Moles/Vol] 112 mmol/L 98-107 [facility] Work Phone: Eosinophils/100 WBC (Bld) 4.3 % 0-5 [facility] Work Phone: Glucose [Mass/Vol] 90 mg/dL 74-106 [facility] Work Phone: Neutrophils (Bld) [#/Vol] 3.9 10*3/uL 2.0-7.7 [facility] Work Phone: Neutrophils/100 WBC (Bld) 64.9 % 47-70 [facility] Work Phone: Potassium [Moles/Vol] 4.2 mmol/L 3.5-5.1 [facility] Work Phone: Protein [Mass/Vol] 6.8 g/dL 6.4-8.2 [facility] Work Phone: Sodium [Moles/Vol] 143 mmol/L 136-145 [facility] Work Phone: WBC (Bld) [#/Vol] 6.0 10*3/uL 4.4-11.0 [facility] Work Phone: Blood erythrocytes count (nu mber/volume)on 12-26-2021 RBC (Bld) [#/Vol] 3.41 10*6/uL 4.2-5.4 [facility] Work Phone: Blood hemoglobin measurement (mass/volume)on 12-26-2021 Hemoglobin (Bld) [Mass/Vol] 11.4 g/dL 12.0-15.0 [facility] Work Phone: Blood lymphocytes/100 leukoc yteson 12-26-2021 Lymphocytes/100 WBC (Bld) 22.4 % 19-41 [facility] Work Phone: Blood monocytes/100 leukocyt eson 12-26-2021 Monocytes/100 WBC (Bld) 7.5 % 0-10 [facility] Work Phone: Blood platelet mean volumeon 12-26-2021 Platelet mean volume (Bld) [Entitic vol] 12.5 fL 6.2-12.0 [facility] Work Phone: Determination of erythrocyte mean corpuscular volume (MCV)on 12-26-2021 MCV (RBC) [Entitic vol] 109.7 fL 81-99 [facility] Work Phone: Hematocrit Auto (Bld) [Volum e fraction]on 12-26-2021 Hematocrit (Bld) [Volume fraction] 37.4 % 37-47 [facility] Work Phone: Laboratory - Chemistry and C hemistry - challengeon 12-26-2021 ALP [Catalytic activity/Vol] 79 U/L 45-117 [facility] Work Phone: ALT [Catalytic activity/Vol] 20 U/L 13-56 [facility] Work Phone: CO2 [Moles/Vol] 26.0 mmol/L 21.0-32.0 [facility] Work Phone: Globulin (S) [Mass/Vol] 3.7 g/dL 2.2-4.2 [facility] Work Phone: Natriuretic peptide B (Bld) [Mass/Vol] 244.1 pg/mL 0-100 [facility] Work Phone: Urea nitrogen/Creatinine [Mass ratio] 29.7 mg/mg 10-20 [facility] Work Phone: Laboratory - Hematology and Cell countson 12-26-2021 Erythrocyte distribution width (RBC) [Entitic vol] 54.6 fL 35.1-43.9 [facility] Work Phone: Erythrocyte distribution width (RBC) [Ratio] 13.4 % 11.6-14.6 [facility] Work Phone: Immature granulocytes/100 WBC (Bld) 0.200 % 0.0-0.9 [facility] Work Phone: Comment on above: IG% - Immature Granu locytes (promyelocytes, myelocytes and metamyelocytes) > 1% indicates that a LEFT SHIFT is Present. MCH (RBC) [Entitic mass] 33.4 pg 27.0-32.0 [facility] Work Phone: Nucleated RBC/100 WBC (Bld) [Ratio] 0 % 0-5 [facility] Work Phone: MCHC Auto (RBC) [Mass/Vol]on 12-26-2021 MCHC (RBC) [Mass/Vol] 30.5 g/dL 32-36 [facility] Work Phone: No Panel Informationon 12-26 [place] 125 Antigen 12.5 U/mL 0.0-38.1 [facility] Work Phone: Comment on above: [employer] [place] ectrochemiluminescence Immunoassay(ECLIA)Values obtained with different assay methods or kits cannotbe used interchangeably. Results cannot be interpreted asabsolute evidence of the presence or absence of malignantdisease.Performed at: [facility] [address] [id number] Director: Kevyn Flannery PhD, Phone: [phone] Estimated GFR (MDRD) Amer 45 mL/min >60 [facility] Work Phone: Comment on above: GFR Calc Estimated GFR (MDRD) Non-Af Amer 37 mL/min >60 [facility] Work Phone: Comment on above: Non- GFR Calc Platelets bldon 09-22-2022 Platelets (Bld) [#/Vol] 211 10*3/uL 150-450 [facility] Work Phone: Serum or plasma albumin farheen urement (mass/volume)on 12-26-2021 Albumin [Mass/Vol] 3.1 g/dL 3.2-5.0 [facility] Work Phone: Serum or plasma albumin/glob ulin mass ratioon 12-26-2021 Albumin/Globulin [Mass ratio] 0.8 {ratio} 0.9-2.4 [facility] Work Phone: Serum or plasma calcium farheen urement (mass/volume)on 12-26-2021 Calcium [Mass/Vol] 8.7 mg/dL 8.5-10.1 [facility] Work Phone: Serum or plasma creatinine m easurement (mass/volume)on 12-26-2021 Creatinine [Mass/Vol] 1.45 mg/dL 0.55-1.02 [facility] Work Phone: Comment on above: The validity of the calculated GFR & GFRAA in patients over 70 years has not been determined. Clinical correlation is essential. Serum or plasma urea nitroge n measurement (mass/volume)on 12-26-2021 Urea nitrogen [Mass/Vol] 43 mg/dL 7-18 [facility] Work Phone: Thin prep Papanicolaou smear with manual screeningon 12-26-2021 Thin prep Papanicolaou smear with manual screening 14 U/L 15-37 [facility] Work Phone: Thin prep Papanicolaou smear with manual screening 5 5-15 [facility] Work Phone: Basophil percentageon 2021 Chloride [Moles/Vol] 115 mmol/L 98-107 [facility] Work Phone: Glucose [Mass/Vol] 130 mg/dL 74-106 [facility] Work Phone: Comment on above: Fasting Glucose resu lt greater than or equal to 126 mg/dL suggests DIABETES MELLITUS per A.D.A. criteria. Potassium [Moles/Vol] 4.7 mmol/L 3.5-5.1 [facility] Work Phone: Comment on above: Moderate Hemolysis, Result may be falsely increased. Sodium [Moles/Vol] 144 mmol/L 136-145 [facility] Work Phone: Laboratory - Chemistry and C hemistry - challengeon 09-17-2021 CO2 [Moles/Vol] 22.0 mmol/L 21.0-32.0 [facility] Work Phone: Urea nitrogen/Creatinine [Mass ratio] 29.3 mg/mg 10-20 [facility] Work Phone: No Panel Informationon 09-17 Estimated GFR (MDRD) Amer 47 mL/min >60 [facility] Work Phone: Comment on above: GFR Calc Estimated GFR (MDRD) Non-Af Amer 39 mL/min >60 [facility] Work Phone: Comment on above: Non- GFR Calc Serum or plasma calcium farheen urement (mass/volume)on 09-17-2021 Calcium [Mass/Vol] 8.1 mg/dL 8.5-10.1 [facility] Work Phone: Serum or plasma creatinine m easurement (mass/volume)on 09-17-2021 Creatinine [Mass/Vol] 1.40 mg/dL 0.55-1.02 [facility] Work Phone: Comment on above: The validity of the calculated GFR & GFRAA in patients over 70 years has not been determined. Clinical correlation is essential. Serum or plasma urea nitroge n measurement (mass/volume)on 09-17-2021 Urea nitrogen [Mass/Vol] 41 mg/dL 7-18 [facility] Work Phone: Thin prep Papanicolaou smear with manual screeningon 09-17-2021 Thin prep Papanicolaou smear with manual screening 7 5-15 [facility] Work Phone: Basophil percentageon 2021 Chloride [Moles/Vol] 113 mmol/L 98-107 [facility] Work Phone: Glucose [Mass/Vol] 96 mg/dL 74-106 [facility] Work Phone: Potassium [Moles/Vol] 4.6 mmol/L 3.5-5.1 [facility] Work Phone: Sodium [Moles/Vol] 142 mmol/L 136-145 [facility] Work Phone: Laboratory - Chemistry and C hemistry - challengeon 08-29-2021 CO2 [Moles/Vol] 21.0 mmol/L 21.0-32.0 [facility] Work Phone: Urea nitrogen/Creatinine [Mass ratio] 36.8 mg/mg 10-20 [facility] Work Phone: No Panel Informationon 08-29 Estimated GFR (MDRD) Amer 37 mL/min >60 [facility] Work Phone: Comment on above: GFR Calc Estimated GFR (MDRD) Non-Af Amer 31 mL/min >60 [facility] Work Phone: Comment on above: Non- GFR Calc Serum or plasma calcium farheen urement (mass/volume)on 08-29-2021 Calcium [Mass/Vol] 8.6 mg/dL 8.5-10.1 [facility] Work Phone: Serum or plasma creatinine m easurement (mass/volume)on 08-29-2021 Creatinine [Mass/Vol] 1.71 mg/dL 0.55-1.02 [facility] Work Phone: Comment on above: The validity of the calculated GFR & GFRAA in patients over 70 years has not been determined. Clinical correlation is essential. Serum or plasma urea nitroge n measurement (mass/volume)on 08-29-2021 Urea nitrogen [Mass/Vol] 63 mg/dL 7-18 [facility] Work Phone: Thin prep Papanicolaou smear with manual screeningon 08-29-2021 Thin prep Papanicolaou smear with manual screening 8 5-15 [facility] Work Phone: Laboratory - Chemistry and C hemistry - challengeon 08-06-2021 Natriuretic peptide B (Bld) [Mass/Vol] 66.7 pg/mL 0-100 [facility] Work Phone: CT ABD/PEL WO IVCONon 2021 [facility] CBC W Auto Differential pane l (Bld)on 07-16-2021 Abs Immature Gran 0.03 k/uL <0.10 k/uL [facility] Basophils (Bld) [#/Vol] 0.07 10*3/uL <0.11 k/uL [facility] Basophils/100 WBC (Bld) 1.0 % [facility] Differential cell count method Nom (Bld) Auto [facility] Eosinophils (Bld) [#/Vol] 0.29 10*3/uL <0.46 k/uL [facility] Eosinophils/100 WBC (Bld) 4.2 % [facility] Erythrocyte distribution width (RBC) [Ratio] 12.8 % 11.5 - 15.0 % [facility] Hematocrit (Bld) [Volume fraction] 37.9 % 36.0 - 46.0 % [facility] Hemoglobin (Bld) [Mass/Vol] 11.8 g/dL 11.5 - 15.5 g/dL [facility] Immature Gran % 0.4 % [facility] Lymphocytes (Bld) [#/Vol] 2.20 10*3/uL 1.00 - 4.00 k/uL [facility] Lymphocytes/100 WBC (Bld) 32.0 % [facility] MCH (RBC) [Entitic mass] 34.0 pg 26.0 - 34.0 pg [facility] MCHC (RBC) [Mass/Vol] 31.1 g/dL 30.5 - 36.0 g/dL [facility] MCV (RBC) [Entitic vol] 109.2 fL High 80.0 - 100.0 fL [facility] Monocytes (Bld) [#/Vol] 0.54 10*3/uL <0.87 k/uL [facility] Monocytes/100 WBC (Bld) 7.9 % [facility] Neutrophils (Bld) [#/Vol] 3.74 10*3/uL 1.45 - 7.50 k/uL [facility] Neutrophils/100 WBC (Bld) 54.5 % [facility] Nucleated RBC (Bld) [#/Vol] 10*3/uL <0.01 k/uL [facility] Nucleated RBC/100 WBC (Bld) [Ratio] 0.0 /100 WBC [facility] Platelet mean volume (Bld) [Entitic vol] 12.6 fL 9.0 - 12.7 fL [facility] Platelets (Bld) [#/Vol] 232 10*3/uL 150 - 400 k/uL [facility] RBC (Bld) [#/Vol] 3.47 10*6/uL Low 3.90 - 5.20 m/uL [facility] WBC (Bld) [#/Vol] 6.87 10*3/uL 3.70 - 11.00 k/uL [facility] Comprehensive metabolic 2000 panelon 07-16-2021 Albumin [Mass/Vol] 3.9 g/dL 3.9 - 4.9 g/dL [facility] ALP [Catalytic activity/Vol] 64 U/L 34 - 123 U/L [facility] ALT [Catalytic activity/Vol] 13 U/L 7 - 38 U/L [facility] Anion gap [Moles/Vol] 11 mmol/L 9 - 18 mmol/L [facility] AST [Catalytic activity/Vol] 22 U/L 13 - 35 U/L [facility] Bilirubin [Mass/Vol] 0.3 mg/dL 0.2 - 1 .3 mg/dL [facility] Calcium [Mass/Vol] 8.9 mg/dL 8.5 - 10. 2 mg/dL [facility] Chloride [Moles/Vol] 110 mmol/L High 97 - 10 5 mmol/L [facility] CO2 [Moles/Vol] 19 mmol/L Low 22 - 30 mmol/L [facility] Creatinine [Mass/Vol] 1.72 mg/dL High 0.58 - 0.96 mg/dL [facility] Estimated Glomerular Filtration Rate 30 mL/min/1.73m Low >=60 mL/min/1.7 3m [facility] Glucose [Mass/Vol] 77 mg/dL 74 - 99 mg/dL [facility] Potassium [Moles/Vol] 4.4 mmol/L 3.7 - 5.1 mmol/L [facility] Protein [Mass/Vol] 6.8 g/dL 6.3 - 8.0 g/dL [facility] Sodium [Moles/Vol] 140 mmol/L 136 - 144 mmol/L [facility] Urea nitrogen [Mass/Vol] 63 mg/dL High 7 - 21 mg/dL [facility] TSH BLDon 07-16-2021 TSH Qn 3.480 m[IU]/L 0.270 - 4.200 mIU/L [facility] XR RIBS/CHEST 3V AP RIB/OBLS /CXR LEFTon 07-16-2021 [facility] XR Ribs - left Views and Birdie st PAon 07-16-2021 IMPRESSION: Negative ribs. Typewriter Repairer: CHEIKH Transcribe Date/Time: Jul 16 2021 2:18P [...] USE_DIVISIO N OF RADIOLOGY Provider, Caitlin Valenzuela [facility] - 07/16/2021 * * *Final Report* * [...] nondisplaced rib fracture. IMPRESSION IMPRESSION: Negative ribs. Typewriter Repairer: CHEIKH Transcribe Date/Time: Jul 16 2021 2:18P Dictated by : ADELA MILNER MD This examination was interpreted and the report reviewed and electronically signed by: ADELA MILNER MD on Jul 16 2021 2:25PM EST [facility] Radiology Study observation (narrative) [facility] XR Ribs - left Views and Birdie st PAOrdered By: Ccf Provider on 07-16-2021 [facility] Culture, urine Bacteria identified Cx Nom (U) Escherichia coli [facility] Work Phone: Bacteria identified Cx Nom (U) Positive [facility] Work Phone: Vital Signs Date Time Vital Sign Value Performing Clinician Jordani waldo 10-26-2024 11:34-0400 Body temperature 97.9 [degF] Miryam Orozco [employer] Work Phone: [facility] 10-26-2024 11:34-0400 Diastolic blood pressure 61 mm[Hg] Miryam Orzoco [employer] Work Phone: [facility] 10-26-2024 11:34-0400 Heart rate 87 /min Miryam Orozco [employer] Work Phone: [facility] 10-26-2024 11:34-0400 Respiratory rate 16 /min Miryam Tannhof [employer] Work Phone: 9(673)181-898475 [place] [address] 10-26-2024 11:34-0400 SaO2% (BldA) [Mass fraction] 98 % Miryam Kimballhof [employer] Work Phone: 7(602)237-262975 [place] [address] 10-26-2024 11:34-0400 Systolic blood pressure 110 mm[Hg] Miryam Serraf [employer] Work Phone: 5(428)055-803475 [place] [address] 10-26-2024 10:03-0400 Body mass index (BMI) [Ratio] 49.6 kg/m2 Miryam Serarf [employer] Work Phone: 5(247)060-827575 [place] [address] 10-26-2024 10:03-0400 Body weight 123 kg Miryam Serraf [employer] Work Phone: 3(400)341-365075 [place] [address] 10-26-2024 10:01-0400 Body height 157.48 cm Miryam Serraf [employer] Work Phone: 4(265)122-283475 [place] [address] 10-25-2024 14:13-0400 Body height 157.48 cm Miryam Serraf [employer] Work Phone: 4(508)597-232175 [place] [address] 10-25-2024 14:13-0400 Body mass index (BMI) [Ratio] 46.7 kg/m2 Miryam Serraf [employer] Work Phone: 9(938)000-844775 [place] [address] 10-25-2024 14:13-0400 Body weight 116.11 kg Miryam Serraf [employer] Work Phone: 7(866)128-252075 [place] [address] 10-25-2024 14:13-0400 Diastolic blood pressure 62 mm[Hg] Miryam Serraf [employer] Work Phone: 0(120)103-553675 [place] [address] 10-25-2024 14:13-0400 Heart rate 119 /min Miryam Serraf [employer] Work Phone: 1(738)292-270775 [place] [address] 10-25-2024 14:13-0400 Respiratory rate 18 /min Miryam Serraf [employer] Work Phone: 0(102)526-786375 [place] [address] 10-25-2024 14:13-0400 Systolic blood pressure 111 mm[Hg] Miryampoonam Kimballhof [employer] Work Phone: [facility] 10-24-2024 13:52-0400 Body mass index (BMI) [Ratio] 48.65 kg/m2 Lizy Capone MD Work Phone: [facility] 10-24-2024 13:52-0400 Body weight 120.66 kg Lizy Capone MD Work Phone: [facility] 10-24-2024 13:52-0400 Diastolic blood pressure 63 mm[Hg] Lizy Capone MD Work Phone: [facility] 10-24-2024 13:52-0400 Heart rate 117 /min Lizy Capone MD Work Phone: [facility] 10-24-2024 13:52-0400 Respiratory rate 18 /min Lizy Capone MD Work Phone: [facility] 10-24-2024 13:52-0400 SaO2% (BldA) [Mass fraction] 96 % Lizy Capone MD Work Phone: [facility] 10-24-2024 13:52-0400 Systolic blood pressure 93 mm[Hg] Lizy Capone MD Work Phone: [facility] 10-24-2024 10:01-0400 Body temperature 98.5 [degF] Miryampoonam Kimballhof [employer] Work Phone: [facility] 10-24-2024 10:01-0400 Diastolic blood pressure 74 mm[Hg] Miryampoonam Kimballhof [employer] Work Phone: [facility] 10-24-2024 10:01-0400 Heart rate 104 /min Miryampoonam Kimballhof [employer] Work Phone: [facility] 10-24-2024 10:01-0400 Respiratory rate 18 /min Miryampoonam Kimballhof [employer] Work Phone: [facility] 10-24-2024 10:01-0400 Systolic blood pressure 123 mm[Hg] Miryampoonam Kimballhof [employer] Work Phone: 9(728)715-682375 [place] [address] 10-20-2024 11:32-0400 Body temperature 98.4 [degF] Miryam Tannhof [employer] Work Phone: 4(328)206-286575 [place] [address] 10-20-2024 11:32-0400 Diastolic blood pressure 74 mm[Hg] Miryam Tannhof [employer] Work Phone: 7(270)140-548475 [place] [address] 10-20-2024 11:32-0400 Heart rate 96 /min Miryam Tannhof [employer] Work Phone: 9(269)735-167675 [place] [address] 10-20-2024 11:32-0400 Respiratory rate 18 /min Miryam Tannhof [employer] Work Phone: 5(612)459-391575 [place] [address] 10-20-2024 11:32-0400 SaO2% (BldA) [Mass fraction] 96 % Miryam Tannhof [employer] Work Phone: 7(102)045-230775 [place] [address] 10-20-2024 11:32-0400 Systolic blood pressure 125 mm[Hg] Miryam Tannhof [employer] Work Phone: 1(327)948-777675 [place] [address] 10-18-2024 11:11-0400 Body temperature 97.5 [degF] Miryam Tannhof [employer] Work Phone: 8(045)141-738575 [place] [address] 10-18-2024 11:11-0400 Diastolic blood pressure 71 mm[Hg] Miryam Tannhof [employer] Work Phone: 1(127)036-196075 [place] [address] 10-18-2024 11:11-0400 Heart rate 81 /min Miryam Tannhof [employer] Work Phone: 6(279)572-100975 [place] [address] 10-18-2024 11:11-0400 Respiratory rate 17 /min Miryam Tannhof [employer] Work Phone: 5(617)889-947675 [place] [address] 10-18-2024 11:11-0400 SaO2% (BldA) [Mass fraction] 98 % Miryam Tannhof [employer] Work Phone: 1(467)478-956875 [place] [address] 10-18-2024 11:11-0400 Systolic blood pressure 127 mm[Hg] Miryam Tannhof [employer] Work Phone: [facility] 10-18-2024 06:00-0400 Body mass index (BMI) [Ratio] 49.1 kg/m2 Miryam Jigarhof [employer] Work Phone: 5(717)100-929875 [place] [address] 10-18-2024 06:00-0400 Body weight 120.97 kg Miryampoonam Kimballhof [employer] Work Phone: 8(348)120-859575 [place] [address] 10-16-2024 20:49-0400 Diastolic blood pressure 70 mm[Hg] Miryam Tannhof [employer] Work Phone: 3(124)135-858875 [place] [address] 10-16-2024 20:49-0400 Heart rate 80 /min Miryam Tannhof [employer] Work Phone: 3(485)499-080075 [place] [address] 10-16-2024 20:49-0400 Systolic blood pressure 136 mm[Hg] Miryam Tannhof [employer] Work Phone: 6(209)027-321675 [place] [address] 10-16-2024 10:34-0400 Body temperature 97.6 [degF] Miryam Tannhof [employer] Work Phone: 5(175)164-009675 [place] [address] 10-16-2024 10:34-0400 SaO2% (BldA) [Mass fraction] 96 % Miryam Tannhof [employer] Work Phone: 5(581)035-345675 [place] [address] 10-15-2024 09:46-0400 Respiratory rate 18 /min Miryam Jigarhof [employer] Work Phone: 2(852)742-981175 [place] [address] 10-14-2024 16:40-0400 Body temperature 97.6 [degF] Miryam Tannhof [employer] Work Phone: 5(178)669-441675 [place] [address] 10-14-2024 16:40-0400 Diastolic blood pressure 87 mm[Hg] Miryam Tannhof [employer] Work Phone: 7(135)998-609375 [place] [address] 10-14-2024 16:40-0400 Heart rate 94 /min Miryam Tannhof [employer] Work Phone: 9(543)645-569475 [place] [address] 10-14-2024 16:40-0400 Respiratory rate 18 /min Miryam Tannhof [employer] Work Phone: 2(059)944-917775 [place] [address] 10-14-2024 16:40-0400 SaO2% (BldA) [Mass fraction] 96 % Miryam Serraf [employer] Work Phone: 6(431)260-087275 [place] [address] 10-14-2024 16:40-0400 Systolic blood pressure 125 mm[Hg] Miryam Serraf [employer] Work Phone: 8(147)285-246675 [place] [address] 10-14-2024 16:21-0400 Inhaled oxygen flow rate 4 L/min Miryam Orozco [employer] Work Phone: 3(178)801-676475 [place] [address] 10-14-2024 13:52-0400 Body height 157.48 cm Miryam Orozco [employer] Work Phone: 5(592)454-446875 [place] [address] 10-14-2024 13:52-0400 Body mass index (BMI) [Ratio] 47.5 kg/m2 Miryam Serraf [employer] Work Phone: 1(275)563-101075 [place] [address] 10-14-2024 13:52-0400 Body weight 117.93 kg Miryam Serraf [employer] Work Phone: 7(543)841-279575 [place] [address] 10-14-2024 07:54-0400 Body mass index (BMI) [Ratio] 49.2 kg/m2 Miryam Serraf [employer] Work Phone: 8(200)572-978675 [place] [address] 10-14-2024 07:54-0400 Body weight 122.19 kg Miryam Orozco [employer] Work Phone: 8(637)251-113875 [place] [address] 10-12-2024 16:10-0400 Body temperature 97.8 [degF] Miryam Serraf [employer] Work Phone: 3(429)165-580775 [place] [address] 10-12-2024 16:10-0400 Diastolic blood pressure 67 mm[Hg] Miryam Serraf [employer] Work Phone: 7(942)256-651575 [place] [address] 10-12-2024 16:10-0400 Heart rate 93 /min Miryam Serraf [employer] Work Phone: 0(413)853-996175 [place] [address] 10-12-2024 16:10-0400 Respiratory rate 13 /min Miryam Orozco [employer] Work Phone: 4(100)522-231175 [place] [address] 10-12-2024 16:10-0400 SaO2% (BldA) [Mass fraction] 94 % Miryam Serraf [employer] Work Phone: 5(097)371-085575 [place] [address] 10-12-2024 16:10-0400 Systolic blood pressure 122 mm[Hg] Miryam Serraf [employer] Work Phone: 6(614)610-739975 [place] [address] 10-12-2024 13:35-0400 Body height 154.94 cm Miryam Serraf [employer] Work Phone: 9(648)278-486475 [place] [address] 10-12-2024 13:35-0400 Body mass index (BMI) [Ratio] 56 kg/m2 Miryam Serraf [employer] Work Phone: 1(229)404-415175 [place] [address] 10-12-2024 13:35-0400 Body weight 134.4 kg Miryam Serraf [employer] Work Phone: 9(095)013-438875 [place] [address] 10-12-2024 11:36-0400 Body weight 122.19 kg Miryam Serraf [employer] Work Phone: 9(199)706-088575 [place] [address] 10-12-2024 08:40-0400 Body temperature 98 [degF] Miryam Serraf [employer] Work Phone: 4(793)647-516175 [place] [address] 10-12-2024 08:40-0400 Diastolic blood pressure 65 mm[Hg] Miryam Serraf [employer] Work Phone: 2(018)129-623775 [place] [address] 10-12-2024 08:40-0400 Heart rate 111 /min Miryam Serraf [employer] Work Phone: 4(772)727-637175 [place] [address] 10-12-2024 08:40-0400 Respiratory rate 18 /min Miryam Serraf [employer] Work Phone: 5(454)701-543675 [place] [address] 10-12-2024 08:40-0400 SaO2% (BldA) [Mass fraction] 96 % Miryam Orozco [employer] Work Phone: 0(574)357-487775 [place] [address] 10-12-2024 08:40-0400 Systolic blood pressure 109 mm[Hg] Miryampoonam Kimballhof [employer] Work Phone: 1(326)665-336475 [place] [address] 10-11-2024 15:17-0400 Body mass index (BMI) [Ratio] 49.6 kg/m2 Miryam Tannhof [employer] Work Phone: 9(861)277-607075 [place] [address] 10-10-2024 14:26-0400 Body temperature 97 [degF] Miryam Tannhof [employer] Work Phone: 7(853)388-547775 [place] [address] 10-10-2024 14:26-0400 Diastolic blood pressure 67 mm[Hg] Miryam Tannhof [employer] Work Phone: 5(728)662-193075 [place] [address] 10-10-2024 14:26-0400 Heart rate 89 /min Miryam Tannhof [employer] Work Phone: 6(492)407-321075 [place] [address] 10-10-2024 14:26-0400 Respiratory rate 14 /min Miryam Jigarhof [employer] Work Phone: 8(894)250-936675 [place] [address] 10-10-2024 14:26-0400 Systolic blood pressure 111 mm[Hg] Miryampoonam Kimballhof [employer] Work Phone: 6(742)695-949675 [place] [address] 10-04-2024 14:03-0400 Body temperature 97 [degF] Miryam Tannhof [employer] Work Phone: 7(824)938-056175 [place] [address] 10-04-2024 14:03-0400 Diastolic blood pressure 66 mm[Hg] Miryam Tannhof [employer] Work Phone: 0(065)126-142075 [place] [address] 10-04-2024 14:03-0400 Heart rate 89 /min Miryam Tannhof [employer] Work Phone: 8(216)710-525675 [place] [address] 10-04-2024 14:03-0400 Respiratory rate 16 /min Miryam Tannhof [employer] Work Phone: 1(411)473-393275 [place] [address] 10-04-2024 14:03-0400 SaO2% (BldA) [Mass fraction] 97 % Miryam Tannhof [employer] Work Phone: 0(384)590-305275 [place] [address] 10-04-2024 14:03-0400 Systolic blood pressure 97 mm[Hg] Miryam Serraf [employer] Work Phone: 5(106)608-182975 [place] [address] 10-04-2024 09:00-0400 Inhaled oxygen flow rate 0 L/min Miryam Serraf [employer] Work Phone: 6(919)640-357275 [place] [address] 10-04-2024 04:44-0400 Body mass index (BMI) [Ratio] 48.6 kg/m2 Miryam Serraf [employer] Work Phone: 3(817)262-605875 [place] [address] 10-04-2024 04:44-0400 Body weight 120.8 kg Miryam Serraf [employer] Work Phone: 8(281)127-021075 [place] [address] 10-03-2024 23:25-0400 Body temperature 97.5 [degF] Miryam Serraf [employer] Work Phone: 0(112)180-301075 [place] [address] 10-03-2024 23:25-0400 Diastolic blood pressure 57 mm[Hg] Miryam Serarf [employer] Work Phone: 9(710)419-235575 [place] [address] 10-03-2024 23:25-0400 Heart rate 85 /min Miryam Serraf [employer] Work Phone: 3(674)344-964075 [place] [address] 10-03-2024 23:25-0400 Respiratory rate 15 /min Miryam Serraf [employer] Work Phone: 9(129)995-757375 [place] [address] 10-03-2024 23:25-0400 SaO2% (BldA) [Mass fraction] 96 % Miryam Serraf [employer] Work Phone: 4(609)055-106275 [place] [address] 10-03-2024 23:25-0400 Systolic blood pressure 111 mm[Hg] Miryam Serraf [employer] Work Phone: 6(616)727-700475 [place] [address] 10-03-2024 12:48-0400 Body height 157.48 cm Miryam Serraf [employer] Work Phone: 1(942)370-056375 [place] [address] 10-03-2024 12:48-0400 Body weight 118.3 kg Miryam Serraf [employer] Work Phone: 9(611)145-708175 [place] [address] 10-03-2024 03:48-0400 Body mass index (BMI) [Ratio] 47.7 kg/m2 Miryam Orozco [employer] Work Phone: 0(804)319-389575 [place] [address] 10-01-2024 07:37-0400 Inhaled oxygen flow rate 2 L/min Miryam Serraf [employer] Work Phone: 2(055)[phone] [place] [address] 09-28-2024 21:36-0400 Body temperature 97.9 [degF] Miryam Serraf [employer] Work Phone: 2(092)145-805275 [place] [address] 09-28-2024 21:36-0400 Diastolic blood pressure 73 mm[Hg] Miryam Serraf [employer] Work Phone: 4(971)438-685975 [place] [address] 09-28-2024 21:36-0400 Heart rate 95 /min Miryam Serraf [employer] Work Phone: 5(652)360-917575 [place] [address] 09-28-2024 21:36-0400 Respiratory rate 22 /min Miryam Serraf [employer] Work Phone: 7(413)771-738575 [place] [address] 09-28-2024 21:36-0400 SaO2% (BldA) [Mass fraction] 98 % Miryam Serraf [employer] Work Phone: 9(977)931-539875 [place] [address] 09-28-2024 21:36-0400 Systolic blood pressure 141 mm[Hg] Miryam Serraf [employer] Work Phone: 5(340)951-721675 [place] [address] 09-28-2024 21:32-0400 Body mass index (BMI) [Ratio] 46.1 kg/m2 Miryam Serraf [employer] Work Phone: 6(892)907-450475 [place] [address] 09-28-2024 21:32-0400 Body weight 114.4 kg Miryam Serraf [employer] Work Phone: 0(965)080-397175 [place] [address] 09-28-2024 13:11-0400 Body height 157.48 cm Miryam Serraf [employer] Work Phone: 0(979)327-841575 [place] [address] 09-22-2024 14:18-0400 Body mass index (BMI) [Ratio] 43.63 kg/m2 Lizy Capone MD Work Phone: [facility] 09-22-2024 14:18-0400 Body weight 108.2 kg Lizy Capone MD Work Phone: [facility] 09-22-2024 14:18-0400 Diastolic blood pressure 72 mm[Hg] Lizy Capone MD Work Phone: [facility] 09-22-2024 14:18-0400 Heart rate 120 /min Lizy Capone MD Work Phone: [facility] 09-22-2024 14:18-0400 Respiratory rate 18 /min Lizy Capone MD Work Phone: [facility] 09-22-2024 14:18-0400 SaO2% (BldA) [Mass fraction] 98 % Lizy Capone MD Work Phone: [facility] 09-22-2024 14:18-0400 Systolic blood pressure 122 mm[Hg] Lizy Capone MD Work Phone: [facility] 09-19-2024 14:22-0400 Body temperature 98.1 [degF] Miryam Tannhof ORTHODONTIC BAND MAKER-C Work Phone: [facility] 09-19-2024 14:22-0400 Diastolic blood pressure 78 mm[Hg] Miryam Tannhof ORTHODONTIC BAND MAKER-C Work Phone: [facility] 09-19-2024 14:22-0400 Heart rate 72 /min Miryam Tannhof ORTHODONTIC BAND MAKER-C Work Phone: [facility] 09-19-2024 14:22-0400 Respiratory rate 18 /min Miryam Tannhof ORTHODONTIC BAND MAKER-C Work Phone: [facility] 09-19-2024 14:22-0400 Systolic blood pressure 138 mm[Hg] Miryam Tannhof ORTHODONTIC BAND MAKER-C Work Phone: [facility] 09-15-2024 13:29-0400 Body mass index (BMI) [Ratio] 42.62 kg/m2 Michael Carter APRN.CNP Work Phone: [facility] 09-15-2024 13:29-0400 Body weight 105.69 kg Michael Carter NAILER OPERATOR.ACCOUNTANT Work Phone: [facility] 09-15-2024 13:29-0400 Diastolic blood pressure 67 mm[Hg] Michael Carter NAILER OPERATOR.ACCOUNTANT Work Phone: [facility] 09-15-2024 13:29-0400 Heart rate 72 /min Michael Carter NAILER OPERATOR.ACCOUNTANT Work Phone: [facility] 09-15-2024 13:29-0400 SaO2% (BldA) [Mass fraction] 95 % Michael Carter NAILER OPERATOR.ACCOUNTANT Work Phone: [facility] 09-15-2024 13:29-0400 Systolic blood pressure 112 mm[Hg] Michael Carter NAILER OPERATOR.ACCOUNTANT Work Phone: [facility] 09-06-2024 10:30-0400 Body temperature 99.4 [degF] Miryampoonam Kimballhof ORTHODONTIC BAND MAKER-C Work Phone: [facility] 09-06-2024 10:30-0400 Diastolic blood pressure 78 mm[Hg] Miryampoonam Kimballhof ORTHODONTIC BAND MAKER-C Work Phone: 2(209)483-[address]22[address] [place] [address] 09-06-2024 10:30-0400 Heart rate 64 /min Miryam Jigarhof ORTHODONTIC BAND MAKER-C Work Phone: 9(446)281-131575 [place] [address] 09-06-2024 10:30-0400 Respiratory rate 16 /min Miryam Jigarhof ORTHODONTIC BAND MAKER-C Work Phone: [facility] 09-06-2024 10:30-0400 SaO2% (BldA) [Mass fraction] 100 % Miryam Jigarhof ORTHODONTIC BAND MAKER-C Work Phone: [facility] 09-06-2024 10:30-0400 Systolic blood pressure 135 mm[Hg] Mriyam Tannhof ORTHODONTIC BAND MAKER-C Work Phone: [facility] 09-06-2024 08:12-0400 Body height 149.86 cm Miryampoonam Kimballhof ORTHODONTIC BAND MAKER-C Work Phone: 8(561)888-267475 [place] [address] 09-06-2024 08:12-0400 Body mass index (BMI) [Ratio] 47 kg/m2 Miryam Serraf ORTHODONTIC BAND MAKER-C Work Phone: 6(052)424-554275 [place] [address] 09-06-2024 08:12-0400 Body weight 105.68 kg Miryam Serraf ORTHODONTIC BAND MAKER-C Work Phone: 5(453)754-438075 [place] [address] 09-05-2024 08:37-0400 Body height 149.86 cm Miryam Serraf ORTHODONTIC BAND MAKER-C Work Phone: 9(504)458-873475 [place] [address] 09-05-2024 08:37-0400 Body mass index (BMI) [Ratio] 47 kg/m2 Miryam Serraf ORTHODONTIC BAND MAKER-C Work Phone: 8(958)892-673875 [place] [address] 09-05-2024 08:37-0400 Body temperature 98 [degF] Miryam Serraf ORTHOD[employer]IC BAND MAKER-C Work Phone: 6(989)858-203775 [place] [address] 09-05-2024 08:37-0400 Body weight 105.68 kg Miryam Serraf ORTHODONTIC BAND MAKER-C Work Phone: 4(244)293-421975 [place] [address] 09-05-2024 08:37-0400 Diastolic blood pressure 72 mm[Hg] Miryam Kimballhof ORTHODONTIC BAND MAKER-C Work Phone: 8(982)907-075275 [place] [address] 09-05-2024 08:37-0400 Heart rate 78 /min Miryam Serraf ORTHOD[employer]IC BAND MAKER-C Work Phone: 5(690)614-087575 [place] [address] 09-05-2024 08:37-0400 Respiratory rate 16 /min Miryam Serraf ORTHOD[employer]IC BAND MAKER-C Work Phone: 8(807)750-078275 [place] [address] 09-05-2024 08:37-0400 SaO2% (BldA) [Mass fraction] 96 % Miryam Kimballhof ORTHODONTIC BAND MAKER-C Work Phone: 7(673)470-675475 [place] [address] 09-05-2024 08:37-0400 Systolic blood pressure 128 mm[Hg] Miryam Kimballhof [employer]THOD[employer]IC BAND MAKER-C Work Phone: 1(880)773-595675 [place] [address] 09-04-2024 14:37-0400 Body mass index (BMI) [Ratio] 42.62 kg/m2 Deacon Moomaw NAILER OPERATOR.ACCOUNTANT Work Phone: [facility] 09-04-2024 14:37-0400 Body temperature 98.49 [degF] Deacon Moomaw NAILER OPERATOR.ACCOUNTANT Work Phone: [facility] 09-04-2024 14:37-0400 Body weight 105.69 kg Deacon Moomaw NAILER OPERATOR.ACCOUNTANT Work Phone: [facility] 09-04-2024 14:37-0400 Diastolic blood pressure 76 mm[Hg] Deacon Moomaw NAILER OPERATOR.ACCOUNTANT Work Phone: [facility] 09-04-2024 14:37-0400 Heart rate 74 /min Deacon Moomaw NAILER OPERATOR.ACCOUNTANT Work Phone: [facility] 09-04-2024 14:37-0400 Respiratory rate 18 /min Deacon Moomaw NAILER OPERATOR.ACCOUNTANT Work Phone: [facility] 09-04-2024 14:37-0400 SaO2% (BldA) [Mass fraction] 95 % Deacon Moomaw NAILER OPERATOR.ACCOUNTANT Work Phone: [facility] 09-04-2024 14:37-0400 Systolic blood pressure 128 mm[Hg] Deacon Moomaw NAILER OPERATOR.ACCOUNTANT Work Phone: [facility] 09-01-2024 14:39-0400 Body temperature 96.8 [degF] Miryam Tannhof [employer]THODONTIC BAND MAKER-C Work Phone: [facility] 09-01-2024 14:39-0400 Diastolic blood pressure 68 mm[Hg] Miryam Tannhof ORTHODONTIC BAND MAKER-C Work Phone: [facility] 09-01-2024 14:39-0400 Heart rate 75 /min Miryam Tannhof ORTHODONTIC BAND MAKER-C Work Phone: [facility] 09-01-2024 14:39-0400 Respiratory rate 18 /min Miryam Tannhof ORTHODONTIC BAND MAKER-C Work Phone: [facility] 09-01-2024 14:39-0400 Systolic blood pressure 147 mm[Hg] Miryam Tannhof ORTHODONTIC BAND MAKER-C Work Phone: [facility] 08-22-2024 13:20-0400 Body mass index (BMI) [Ratio] 42.62 kg/m2 Lizy Capone MD Work Phone: [facility] 08-22-2024 13:20-0400 Body weight 105.69 kg Lizy Capone MD Work Phone: [facility] 08-22-2024 13:20-0400 Diastolic blood pressure 72 mm[Hg] Lizy Capone MD Work Phone: [facility] 08-22-2024 13:20-0400 Heart rate 61 /min Lizy Capone MD Work Phone: [facility] 08-22-2024 13:20-0400 Respiratory rate 18 /min Lizy Capone MD Work Phone: [facility] 08-22-2024 13:20-0400 SaO2% (BldA) [Mass fraction] 95 % Lizy Capone MD Work Phone: [facility] 08-22-2024 13:20-0400 Systolic blood pressure 124 mm[Hg] Lizy Capone MD Work Phone: [facility] 07-29-2024 15:43-0400 Body temperature 98.1 [degF] Miryam Tannhof ORTHODONTIC BAND MAKER-C Work Phone: [facility] 07-29-2024 15:43-0400 Diastolic blood pressure 76 mm[Hg] Miryam Kimballhof ORTHODONTIC BAND MAKER-C Work Phone: [facility] 07-29-2024 15:43-0400 Heart rate 70 /min Miryam Tannhof ORTHODONTIC BAND MAKER-C Work Phone: [facility] 07-29-2024 15:43-0400 Respiratory rate 18 /min Miryam Tannhof ORTHODONTIC BAND MAKER-C Work Phone: [facility] 07-29-2024 15:43-0400 SaO2% (BldA) [Mass fraction] 99 % Miryam Jigarhof ORTHODONTIC BAND MAKER-C Work Phone: 2(594)482-307975 [place] [address] 07-29-2024 15:43-0400 Systolic blood pressure 177 mm[Hg] Miryam Serraf ORTHODONTIC BAND MAKER-C Work Phone: 0(740)218-350275 [place] [address] 07-29-2024 14:53-0400 Body height 154.94 cm Miryampoonam Kimballhof ORTHODONTIC BAND MAKER-C Work Phone: 3(694)674-128475 [place] [address] 07-29-2024 14:53-0400 Body mass index (BMI) [Ratio] 37.8 kg/m2 Miryampoonam Kimballhof ORTHODONTIC BAND MAKER-C Work Phone: 6(124)340-537875 [place] [address] 07-29-2024 14:53-0400 Body weight 90.8 kg Miryampoonam Kimballhof ORTHODONTIC BAND MAKER-C Work Phone: 9(780)311-853575 [place] [address] 06-10-2024 17:29-0500 Body temperature 97.9 [degF] Miryampoonam Kimballhof ORTHODONTIC BAND MAKER-C Work Phone: 2(862)550-005375 [place] [address] 06-10-2024 17:29-0500 Diastolic blood pressure 60 mm[Hg] Miryampoonam Kimballhof ORTHODONTIC BAND MAKER-C Work Phone: 8(516)247-477675 [place] [address] 06-10-2024 17:29-0500 Heart rate 74 /min Miryampoonam Kimballhof ORTHODONTIC BAND MAKER-C Work Phone: 3(518)420-104875 [place] [address] 06-10-2024 17:29-0500 Respiratory rate 16 /min Miryampoonam Kimballhof ORTHODONTIC BAND MAKER-C Work Phone: 4(529)408-690975 [place] [address] 06-10-2024 17:29-0500 SaO2% (BldA) [Mass fraction] 99 % Miryampoonam Kimballhof ORTHODONTIC BAND MAKER-C Work Phone: 5(055)515-081875 [place] [address] 06-10-2024 17:29-0500 Systolic blood pressure 122 mm[Hg] Miryampoonam Kimballhof ORTHODONTIC BAND MAKER-C Work Phone: 5(966)705-551575 [place] [address] 06-08-2024 07:41-0500 Body mass index (BMI) [Ratio] 44.2 kg/m2 Miryampoonam Kimballhof ORTHODONTIC BAND MAKER-C Work Phone: 8(456)471-756075 [place] [address] 06-08-2024 07:41-0500 Body weight 99.4 kg Miryampoonam Kimballhof ORTHODONTIC BAND MAKER-C Work Phone: [facility] 06-01-2024 15:07-0500 Body height 149.86 cm Miryam Orozco ORTHODONTIC BAND MAKER-C Work Phone: [facility] 05-18-2024 15:18-0500 Body temperature 97.9 [degF] Kindra Gannon MD Work Phone: [facility] 05-18-2024 15:18-0500 Diastolic blood pressure 58 mm[Hg] Kindra Gannon MD Work Phone: [facility] 05-18-2024 15:18-0500 Heart rate 68 /min Kindra Gannon MD Work Phone: [facility] 05-18-2024 15:18-0500 Respiratory rate 16 /min Kindra Gannon MD Work Phone: [facility] 05-18-2024 15:18-0500 SaO2% (BldA) [Mass fraction] 95 % Kindra Gannon MD Work Phone: [facility] 05-18-2024 15:18-0500 Systolic blood pressure 111 mm[Hg] Kindra Gannon MD Work Phone: [facility] 05-18-2024 06:00-0500 Body mass index (BMI) [Ratio] 39.13 kg/m2 Kindra Gannon MD Work Phone: [facility] 05-18-2024 06:00-0500 Body weight 106.65 kg Kindra Gannon MD Work Phone: [facility] 05-11-2024 15:06-0500 Body height 165.1 cm Kindra Gannon MD Work Phone: [facility] 05-04-2024 19:00-0500 Body temperature 99.8 [degF] Miryam Orozco ORTHODONTIC BAND MAKER-C Work Phone: [facility] 05-04-2024 19:00-0500 Diastolic blood pressure 57 mm[Hg] Miryam Serraf ORTHODONTIC BAND MAKER-C Work Phone: [facility] 05-04-2024 19:00-0500 Heart rate 68 /min Miryam Serraf ORTHODONTIC BAND MAKER-C Work Phone: [facility] 05-04-2024 19:00-0500 Inhaled oxygen concentration 25 % Miryam Serraf ORTHODONTIC BAND MAKER-C Work Phone: [facility] 05-04-2024 19:00-0500 Respiratory rate 14 /min Miryam Serraf ORTHODONTIC BAND MAKER-C Work Phone: [facility] 05-04-2024 19:00-0500 SaO2% (BldA) [Mass fraction] 98 % Miryam Serraf ORTHODONTIC BAND MAKER-C Work Phone: [facility] 05-04-2024 19:00-0500 Systolic blood pressure 107 mm[Hg] Miryam Serraf ORTHODONTIC BAND MAKER-C Work Phone: [facility] 05-04-2024 14:50-0500 Body mass index (BMI) [Ratio] 49.8 kg/m2 Miryam Serraf ORTHODONTIC BAND MAKER-C Work Phone: [facility] 05-04-2024 14:50-0500 Body weight 115 kg Miryampoonam Serraf ORTHODONTIC BAND MAKER-C Work Phone: [facility] 01-28-2024 08:55-0400 Body mass index (BMI) [Ratio] 41.88 kg/m2 Miryam Kimballhof NAILER OPERATOR.ACCOUNTANT Work Phone: [facility] 01-28-2024 08:55-0400 Body weight 103.87 kg Miryam Kimballhof NAILER OPERATOR.ACCOUNTANT Work Phone: [facility] 01-28-2024 08:55-0400 Diastolic blood pressure 60 mm[Hg] Miryam Kimballhof NAILER OPERATOR.ACCOUNTANT Work Phone: [facility] 01-28-2024 08:55-0400 Heart rate 77 /min Miryam Kimballhof NAILER OPERATOR.ACCOUNTANT Work Phone: [facility] 01-28-2024 08:55-0400 Respiratory rate 16 /min Miryam Kimballmirzaf NAILER OPERATOR.ACCOUNTANT Work Phone: [facility] 01-28-2024 08:55-0400 SaO2% (BldA) [Mass fraction] 96 % Miryam Kimballhof NAILER OPERATOR.ACCOUNTANT Work Phone: [facility] 01-28-2024 08:55-0400 Systolic blood pressure 122 mm[Hg] Miryam Jigarhof NAILER OPERATOR.ACCOUNTANT Work Phone: [facility] 12-17-2023 08:53-0400 Heart rate 71 /min Roque Delgado MD Work Phone: [facility] 12-17-2023 08:53-0400 Respiratory rate 14 /min Roque Delgado MD Work Phone: [facility] 12-17-2023 08:53-0400 SaO2% (BldA) [Mass fraction] 99 % Roque Delgado MD Work Phone: [facility] 12-04-2023 08:03-0400 Body mass index (BMI) [Ratio] 40.79 kg/m2 Starr Marques MD Work Phone: [facility] 12-04-2023 08:03-0400 Body weight 101.15 kg Starr Marques MD Work Phone: [facility] 12-04-2023 08:03-0400 Diastolic blood pressure 60 mm[Hg] Starr Marques MD Work Phone: [facility] 12-04-2023 08:03-0400 Systolic blood pressure 108 mm[Hg] Starr Marques MD Work Phone: [facility] 11-16-2023 10:58-0400 Diastolic blood pressure 57 mm[Hg] Roque Delgado MD Work Phone: [facility] 11-16-2023 10:58-0400 Heart rate 71 /min Roque Delgado MD Work Phone: [facility] 11-16-2023 10:58-0400 Respiratory rate 17 /min Roque Delgado MD Work Phone: [facility] 11-16-2023 10:58-0400 SaO2% (BldA) [Mass fraction] 97 % Roque Delgado MD Work Phone: [facility] 11-16-2023 10:58-0400 Systolic blood pressure 109 mm[Hg] Roque Delgado MD Work Phone: [facility] 11-09-2023 09:17-0400 Body mass index (BMI) [Ratio] 39.92 kg/m2 Miryam Tannhof NAILER OPERATOR.ACCOUNTANT Work Phone: [facility] 11-09-2023 09:17-0400 Body weight 99 kg Miryam Jigarhof NAILER OPERATOR.ACCOUNTANT Work Phone: [facility] 11-09-2023 09:17-0400 Diastolic blood pressure 60 mm[Hg] Miryam Tannhof NAILER OPERATOR.ACCOUNTANT Work Phone: [facility] 11-09-2023 09:17-0400 Heart rate 104 /min Miryam Tannhof NAILER OPERATOR.ACCOUNTANT Work Phone: [facility] 11-09-2023 09:17-0400 Respiratory rate 16 /min Miryam Tannhof NAILER OPERATOR.ACCOUNTANT Work Phone: [facility] 11-09-2023 09:17-0400 SaO2% (BldA) [Mass fraction] 100 % Miryam Jigarhof NAILER OPERATOR.ACCOUNTANT Work Phone: [facility] 11-09-2023 09:17-0400 Systolic blood pressure 106 mm[Hg] Miryam Tannhof NAILER OPERATOR.ACCOUNTANT Work Phone: [facility] 07-22-2023 12:45-0400 Body weight 101.15 kg Miryampoonam Kimballhof NAILER OPERATOR.ACCOUNTANT Work Phone: [facility] 07-22-2023 12:45-0400 Diastolic blood pressure 70 mm[Hg] Miryam Tannhof NAILER OPERATOR.ACCOUNTANT Work Phone: [facility] 07-22-2023 12:45-0400 Heart rate 78 /min Miryam Kimballhof NAILER OPERATOR.ACCOUNTANT Work Phone: [facility] 07-22-2023 12:45-0400 Respiratory rate 16 /min Miryam Kimballhof NAILER OPERATOR.ACCOUNTANT Work Phone: [facility] 07-22-2023 12:45-0400 SaO2% (BldA) [Mass fraction] 97 % Miryam Kimballhof NAILER OPERATOR.ACCOUNTANT Work Phone: [facility] 07-22-2023 12:45-0400 Systolic blood pressure 114 mm[Hg] Miryam Kimballhof NAILER OPERATOR.ACCOUNTANT Work Phone: [facility] 07-15-2023 09:33-0400 Diastolic blood pressure 77 mm[Hg] oRque Delgado MD Work Phone: [facility] 07-15-2023 09:33-0400 Heart rate 76 /min Roque Delgado MD Work Phone: [facility] 07-15-2023 09:33-0400 Respiratory rate 15 /min Roque Delgado MD Work Phone: [facility] 07-15-2023 09:33-0400 SaO2% (BldA) [Mass fraction] 96 % Roque Delgado MD Work Phone: [facility] 07-15-2023 09:33-0400 Systolic blood pressure 114 mm[Hg] Roque Delgado MD Work Phone: [facility] 06-09-2023 09:05-0500 SaO2% (BldA) [Mass fraction] 93 % Dr. Judson Toney Work Phone: [facility] 06-09-2023 08:18-0500 Body temperature 98 [degF] Dr. Judson Toney Work Phone: [facility] 06-09-2023 08:18-0500 Diastolic blood pressure 77 mm[Hg] Dr. Judson Toney Work Phone: [facility] 06-09-2023 08:18-0500 Heart rate 67 /min Dr. Judson Toney Work Phone: [facility] 06-09-2023 08:18-0500 Respiratory rate 18 /min Dr. Judson Toney Work Phone: [facility] 06-09-2023 08:18-0500 Systolic blood pressure 139 mm[Hg] Dr. Judson Toney Work Phone: [facility] 06-09-2023 04:54-0500 Body mass index (BMI) [Ratio] 40 kg/m2 Dr. Judson Toney Work Phone: [facility] 06-09-2023 04:54-0500 Body weight 98.[address] Judson Toney Work Phone: [facility] 06-08-2023 01:28-0500 Body height 157.[address] Judson Toney Work Phone: [facility] 06-07-2023 23:36-0500 Body temperature 97.5 [degF] [facility] 06-07-2023 23:36-0500 Diastolic blood pressure 69 mm[Hg] [facility] 06-07-2023 23:36-0500 Heart rate 98 /min [facility] 06-07-2023 23:36-0500 Respiratory rate 19 /min [facility] 06-07-2023 23:36-0500 SaO2% (BldA) [Mass fraction] 99 % [facility] 06-07-2023 23:36-0500 Systolic blood pressure 127 mm[Hg] [facility] 06-07-2023 19:09-0500 Body height 157.48 cm [facility] 06-07-2023 19:09-0500 Body mass index (BMI) [Ratio] 38.4 kg/m2 [facility] 06-07-2023 19:09-0500 Body weight 95.25 kg [facility] 06-02-2023 07:01-0500 Body height [facility] Work Phone: [facility] 06-02-2023 07:01-0500 Body weight 98.88 kg Rebekah [facility] NAILER OPERATOR.ACCOUNTANT Work Phone: [facility] 05-18-2023 13:33-0500 Diastolic blood pressure 56 mm[Hg] Roque Delgado MD Work Phone: [facility] 05-18-2023 13:33-0500 Heart rate 79 /min Roque Delgado MD Work Phone: [facility] 05-18-2023 13:33-0500 Respiratory rate 18 /min Roque Delgado MD Work Phone: [facility] 05-18-2023 13:33-0500 SaO2% (BldA) [Mass fraction] 97 % Roque Delgado MD Work Phone: [facility] 05-18-2023 13:33-0500 Systolic blood pressure 122 mm[Hg] Roque Delgado MD Work Phone: [facility] 03-02-2023 06:59-0500 Body height 157.5 cm [facility] NAILER OPERATOR.ACCOUNTANT Work Phone: [facility] 03-02-2023 06:59-0500 Body weight 104.33 kg Rebekah [facility] NAILER OPERATOR.ACCOUNTANT Work Phone: [facility] 02-16-2023 12:02-0500 Diastolic blood pressure 77 mm[Hg] Roque Delgado MD Work Phone: [facility] 02-16-2023 12:02-0500 Heart rate 54 /min Roque Delgado MD Work Phone: [facility] 02-16-2023 12:02-0500 Respiratory rate 17 /min Roque Delgado MD Work Phone: [facility] 02-16-2023 12:02-0500 SaO2% (BldA) [Mass fraction] 99 % Roque Delgado MD Work Phone: [facility] 02-16-2023 12:02-0500 Systolic blood pressure 130 mm[Hg] Roque Delgado MD Work Phone: [facility] 01-15-2023 08:19-0400 Heart rate 71 /min Roque Delgado MD Work Phone: [facility] 01-15-2023 08:19-0400 Respiratory rate 18 /min Roque Delgado MD Work Phone: [facility] 01-15-2023 08:19-0400 SaO2% (BldA) [Mass fraction] 97 % Roque Delgado MD Work Phone: [facility] 12-22-2022 08:51-0400 Body weight 104.33 kg Miryam Tannhof NAILER OPERATOR.ACCOUNTANT Work Phone: [facility] 12-22-2022 08:51-0400 Diastolic blood pressure 72 mm[Hg] Miryam Tannhof NAILER OPERATOR.ACCOUNTANT Work Phone: [facility] 12-22-2022 08:51-0400 Heart rate 61 /min Miryam Tannhof NAILER OPERATOR.ACCOUNTANT Work Phone: [facility] 12-22-2022 08:51-0400 Respiratory rate 16 /min Miryam Tannhof NAILER OPERATOR.ACCOUNTANT Work Phone: [facility] 12-22-2022 08:51-0400 SaO2% (BldA) [Mass fraction] 96 % Miryam Tannhof NAILER OPERATOR.ACCOUNTANT Work Phone: [facility] 12-22-2022 08:51-0400 Systolic blood pressure 112 mm[Hg] Miryam Tannhof NAILER OPERATOR.ACCOUNTANT Work Phone: [facility] 10-16-2022 08:03-0400 Heart rate 79 /min Roque Delgado MD Work Phone: [facility] 10-16-2022 08:03-0400 Respiratory rate 16 /min Roque Delgado MD Work Phone: [facility] 10-16-2022 08:03-0400 SaO2% (BldA) [Mass fraction] 95 % Roque Delgado MD Work Phone: [facility] 10-03-2022 09:26-0400 Body height 154.[address] Lizy Capone Work Phone: [facility] 10-03-2022 09:26-0400 Body mass index (BMI) [Ratio] 45.9 kg/m2 Dr. Lizy Capone Work Phone: [facility] 10-03-2022 09:26-0400 Body weight 110.[address] Lizy Capone Work Phone: [facility] 10-03-2022 09:26-0400 Diastolic blood pressure 74 mm[Hg] Dr. Lizy Capone Work Phone: [facility] 10-03-2022 09:26-0400 Heart rate 61 /min Dr. Lizy Capone Work Phone: [facility] 10-03-2022 09:26-0400 Respiratory rate 18 /min Dr. Lizy Capone Work Phone: [facility] 10-03-2022 09:26-0400 Systolic blood pressure 121 mm[Hg] Dr. Lizy Capone Work Phone: [facility] 10-02-2022 09:55-0400 Heart rate 62 /min Roque Delgado MD Work Phone: [facility] 10-02-2022 09:55-0400 Respiratory rate 17 /min Roque Delgado MD Work Phone: [facility] 10-02-2022 09:55-0400 SaO2% (BldA) [Mass fraction] 97 % Roque Delgado MD Work Phone: [facility] 08-13-2022 15:20-0400 Diastolic blood pressure 81 mm[Hg] Roque Delgado MD Work Phone: [facility] 08-13-2022 15:20-0400 Heart rate 53 /min Roque Delgado MD Work Phone: [facility] 08-13-2022 15:20-0400 Respiratory rate 15 /min Roque Delgado MD Work Phone: [facility] 08-13-2022 15:20-0400 SaO2% (BldA) [Mass fraction] 97 % Roque Delgado MD Work Phone: [facility] 08-13-2022 15:20-0400 Systolic blood pressure 131 mm[Hg] Roque Delgado MD Work Phone: [facility] 08-01-2022 07:31-0400 Body height 154.[address] Lizy Capone Work Phone: [facility] 08-01-2022 07:31-0400 Body weight 135.[address] Lizy Capone Work Phone: [facility] 07-31-2022 07:19-0400 Body mass index (BMI) [Ratio] 56.5 kg/m2 Dr. Lizy Capone Work Phone: [facility] 07-30-2022 14:35-0400 Diastolic blood pressure 59 mm[Hg] Roque Delgado MD Work Phone: [facility] 07-30-2022 14:35-0400 Heart rate 55 /min Roque Delgado MD Work Phone: [facility] 07-30-2022 14:35-0400 Respiratory rate 16 /min Roque Delgado MD Work Phone: [facility] 07-30-2022 14:35-0400 SaO2% (BldA) [Mass fraction] 100 % Roque Delgado MD Work Phone: [facility] 07-30-2022 14:35-0400 Systolic blood pressure 129 mm[Hg] Roque Delgado MD Work Phone: [facility] 06-30-2022 09:29-0400 Body height 157.5 cm Ragini Gomes APRN.CNP Work Phone (unformatted): [phone] [facility] 03-27-2023 09:29-0400 Body weight 135.63 kg Ragini Barley NAILER OPERATOR.ACCOUNTANT Work Phone (unformatted): [phone] [facility] 06-30-2022 09:29-0400 Diastolic blood pressure 80 mm[Hg] Ragini Barley NAILER OPERATOR.ACCOUNTANT Work Phone (unformatted): [phone] [facility] 06-30-2022 09:29-0400 Heart rate 66 /min Ragini Barley NAILER OPERATOR.ACCOUNTANT Work Phone (unformatted): [phone] [facility] 06-30-2022 09:29-0400 Respiratory rate 16 /min Ragini Barley NAILER OPERATOR.ACCOUNTANT Work Phone (unformatted): [phone] [facility] 06-30-2022 09:29-0400 SaO2% (BldA) [Mass fraction] 94 % Ragini Barley NAILER OPERATOR.ACCOUNTANT Work Phone (unformatted): [phone] [facility] 06-30-2022 09:29-0400 Systolic blood pressure 135 mm[Hg] Ragini Barley NAILER OPERATOR.ACCOUNTANT Work Phone (unformatted): [phone] [facility] 06-27-2022 10:23-0400 Body mass index (BMI) [Ratio] 56.5 kg/m2 Dr. Lizy Capone Work Phone: [facility] 06-27-2022 10:23-0400 Body weight 135.[address] Lizy Capone Work Phone: [facility] 06-27-2022 10:23-0400 Diastolic blood pressure 80 mm[Hg] Dr. Lizy Capone Work Phone: [facility] 06-27-2022 10:23-0400 Heart rate 68 /min Dr. Lizy Capone Work Phone: [facility] 06-27-2022 10:23-0400 Respiratory rate 18 /min Dr. Lizy Capone Work Phone: [facility] 06-27-2022 10:23-0400 Systolic blood pressure 143 mm[Hg] Dr. Lizy Capone Work Phone: [facility] 06-26-2022 08:54-0400 Body weight 135.63 kg Miryam Poncef NAILER OPERATOR.ACCOUNTANT Work Phone: [facility] 06-26-2022 08:54-0400 Diastolic blood pressure 76 mm[Hg] Miryam Jigarhof NAILER OPERATOR.ACCOUNTANT Work Phone: [facility] 06-26-2022 08:54-0400 Heart rate 77 /min Miryam Jigarhof NAILER OPERATOR.ACCOUNTANT Work Phone: [facility] 06-26-2022 08:54-0400 Respiratory rate 20 /min Miryam Jigarhof NAILER OPERATOR.ACCOUNTANT Work Phone: [facility] 06-26-2022 08:54-0400 SaO2% (BldA) [Mass fraction] 96 % Miryam Jigarhof NAILER OPERATOR.ACCOUNTANT Work Phone: [facility] 06-26-2022 08:54-0400 Systolic blood pressure 124 mm[Hg] Miryam Kimballhof NAILER OPERATOR.ACCOUNTANT Work Phone: [facility] 05-13-2022 15:21-0500 Body height 157.5 cm Jae Cagle MD Work Phone: [facility] 05-13-2022 15:21-0500 Body temperature 98.01 [degF] Jae Cagle MD Work Phone: [facility] 05-13-2022 15:21-0500 Body weight 129.28 kg Jae Cagle MD Work Phone: [facility] 05-13-2022 15:21-0500 Diastolic blood pressure 58 mm[Hg] Jae Cagle MD Work Phone: [facility] 05-13-2022 15:21-0500 Heart rate 74 /min Jae Cagle MD Work Phone: [facility] 05-13-2022 15:21-0500 SaO2% (BldA) [Mass fraction] 91 % Jae Cagle MD Work Phone: [facility] 05-13-2022 15:21-0500 Systolic blood pressure 108 mm[Hg] Jae Cagle MD Work Phone: [facility] 03-06-2022 09:55-0500 Body height 154.[address] Lizy Capone Work Phone: [facility] 03-06-2022 09:55-0500 Body mass index (BMI) [Ratio] 50.6 kg/m2 Dr. Lizy Capone Work Phone: [facility] 03-06-2022 09:55-0500 Body weight 121.[address] Lizy Capone Work Phone: [facility] 03-06-2022 09:55-0500 Diastolic blood pressure 77 mm[Hg] Dr. Lizy Capone Work Phone: [facility] 03-06-2022 09:55-0500 Heart rate 59 /min Dr. Lizy Capone Work Phone: [facility] 03-06-2022 09:55-0500 Respiratory rate 18 /min Dr. Lizy Capone Work Phone: [facility] 03-06-2022 09:55-0500 Systolic blood pressure 151 mm[Hg] Dr. Lizy Capone Work Phone: [facility] 01-30-2022 15:50-0400 Heart rate 67 /min Roque Delgado MD Work Phone: [facility] 01-30-2022 15:50-0400 Respiratory rate 18 /min Roque Delgado MD Work Phone: [facility] 01-30-2022 15:50-0400 SaO2% (BldA) [Mass fraction] 97 % Roque Delgado MD Work Phone: [facility] 01-14-2022 15:42-0400 Body height 154.[address] Lizy Capone Work Phone: [facility] Work Phone: 01-14-2022 15:42-0400 Body mass index (BMI) [Ratio] 49.8 kg/m2 Dr. Lizy Capone Work Phone: [facility] Work Phone: 01-14-2022 15:42-0400 Body weight 119.[address] Lizy Capone Work Phone: [facility] Work Phone: 01-14-2022 15:42-0400 Diastolic blood pressure 73 mm[Hg] Dr. Lizy Capone Work Phone: [facility] Work Phone: 01-14-2022 15:42-0400 Heart rate 60 /min Dr. Lizy Capone Work Phone: [facility] Work Phone: 01-14-2022 15:42-0400 Respiratory rate 18 /min Dr. Lizy Capone Work Phone: [facility] Work Phone: 01-14-2022 15:42-0400 SaO2% (BldA) [Mass fraction] 95 % Dr. Lizy Capone Work Phone: [facility] Work Phone: 01-14-2022 15:42-0400 Systolic blood pressure 158 mm[Hg] Dr. Lizy Capone Work Phone: [facility] Work Phone: 01-08-2022 11:38-0400 Body temperature 97.9 [degF] Roque Delgado MD Work Phone: [facility] 01-08-2022 11:38-0400 Diastolic blood pressure 70 mm[Hg] Roque Delgado MD Work Phone: [facility] 01-08-2022 11:38-0400 Respiratory rate 16 /min Roque Delgado MD Work Phone: [facility] 01-08-2022 11:38-0400 SaO2% (BldA) [Mass fraction] 100 % Roque Delgado MD Work Phone: [facility] 01-08-2022 11:38-0400 Systolic blood pressure 148 mm[Hg] Roque Delgado MD Work Phone: [facility] 01-08-2022 10:36-0400 Heart rate 64 /min Roque Delgado MD Work Phone: [facility] 01-02-2022 07:07-0400 Body weight 119.75 kg Miryam Jigarhof NAILER OPERATOR.ACCOUNTANT Work Phone: [facility] 01-02-2022 07:07-0400 Diastolic blood pressure 80 mm[Hg] Miryam Tannhof NAILER OPERATOR.ACCOUNTANT Work Phone: [facility] 01-02-2022 07:07-0400 Heart rate 61 /min Miryam Jigarhof NAILER OPERATOR.ACCOUNTANT Work Phone: [facility] 01-02-2022 07:07-0400 Respiratory rate 20 /min Miryampoonam Kimballhof NAILER OPERATOR.ACCOUNTANT Work Phone: [facility] 01-02-2022 07:07-0400 SaO2% (BldA) [Mass fraction] 98 % Miryam Kimballhof NAILER OPERATOR.ACCOUNTANT Work Phone: [facility] 01-02-2022 07:07-0400 Systolic blood pressure 138 mm[Hg] Miryam Kimballhof NAILER OPERATOR.ACCOUNTANT Work Phone: [facility] 12-26-2021 14:38-0400 Body height 157.5 cm Avis Yaron NAILER OPERATOR.ACCOUNTANT Work Phone: [facility] 12-26-2021 14:38-0400 Body weight 104.33 kg Avis Españafield NAILER OPERATOR.ACCOUNTANT Work Phone: [facility] 12-26-2021 12:36-0400 Body temperature 96.8 [degF] Dr. Lizy Capone Work Phone: [facility] Work Phone: 12-26-2021 12:36-0400 Diastolic blood pressure 76 mm[Hg] Dr. Lizy Capone Work Phone: [facility] Work Phone: 12-26-2021 12:36-0400 Heart rate 65 /min Dr. Lizy Capone Work Phone: [facility] Work Phone: 12-26-2021 12:36-0400 Respiratory rate 18 /min Dr. Lizy Capone Work Phone: [facility] Work Phone: 12-26-2021 12:36-0400 SaO2% (BldA) [Mass fraction] 97 % Dr. Lizy Capone Work Phone: [facility] Work Phone: 12-26-2021 12:36-0400 Systolic blood pressure 145 mm[Hg] Dr. Lizy Capone Work Phone: [facility] Work Phone: 12-26-2021 07:36-0400 Body height 154.[address] Lizy Capone Work Phone: [facility] Work Phone: 12-25-2021 13:06-0400 Diastolic blood pressure 67 mm[Hg] Roque Delgado MD Work Phone: [facility] 12-25-2021 13:06-0400 Heart rate 57 /min Roque Delgado MD Work Phone: [facility] 12-25-2021 13:06-0400 Respiratory rate 18 /min Roque Delgado MD Work Phone: [facility] 12-25-2021 13:06-0400 SaO2% (BldA) [Mass fraction] 98 % Roque Delgado MD Work Phone: [facility] 12-25-2021 13:06-0400 Systolic blood pressure 142 mm[Hg] Roque Delgado MD Work Phone: [facility] 12-25-2021 13:03-0400 Body temperature 97.7 [degF] Roque Delgado MD Work Phone: [facility] 12-19-2021 09:20-0400 Body temperature 98 [degF] Dr. Lizy Capone Work Phone: [facility] Work Phone: 12-19-2021 09:20-0400 Body weight 120.[address] Lizy Capone Work Phone: [facility] Work Phone: 12-19-2021 09:20-0400 Diastolic blood pressure 67 mm[Hg] Dr. Lizy Capone Work Phone: [facility] Work Phone: 12-19-2021 09:20-0400 Heart rate 67 /min Dr. Lizy Capone Work Phone: [facility] Work Phone: 12-19-2021 09:20-0400 Respiratory rate 18 /min Dr. Lizy Capone Work Phone: [facility] Work Phone: 12-19-2021 09:20-0400 SaO2% (BldA) [Mass fraction] 98 % Dr. Lizy Capone Work Phone: [facility] Work Phone: 12-19-2021 09:20-0400 Systolic blood pressure 134 mm[Hg] Dr. Lizy Capone Work Phone: [facility] Work Phone: 09-19-2021 09:23-0400 Heart rate 63 /min Avis Marrufo NAILER OPERATOR.ACCOUNTANT Work Phone: [facility] 09-19-2021 09:23-0400 Respiratory rate 18 /min Avis Marrufo NAILER OPERATOR.ACCOUNTANT Work Phone: [facility] 09-19-2021 09:23-0400 SaO2% (BldA) [Mass fraction] 97 % Avis Marrufo NAILER OPERATOR.ACCOUNTANT Work Phone: [facility] 08-06-2021 13:23-0400 Body height 154.[address] Lizy Capone Work Phone: [facility] Work Phone: 08-06-2021 13:23-0400 Body mass index (BMI) [Ratio] 43.6 kg/m2 Dr. Lizy Capone Work Phone: [facility] Work Phone: 08-06-2021 13:23-0400 Body weight 104.[address] Lizy Capone Work Phone: [facility] Work Phone: 08-06-2021 13:23-0400 Diastolic blood pressure 79 mm[Hg] Dr. Lizy Capone Work Phone: [facility] Work Phone: 08-06-2021 13:23-0400 Heart rate 74 /min Dr. Lizy Capone Work Phone: [facility] Work Phone: 08-06-2021 13:23-0400 Respiratory rate 18 /min Dr. Lizy Capone Work Phone: [facility] Work Phone: 08-06-2021 13:23-0400 SaO2% (BldA) [Mass fraction] 95 % Dr. Lizy Capone Work Phone: [facility] Work Phone: 08-06-2021 13:23-0400 Systolic blood pressure 145 mm[Hg] Dr. Lizy Capone Work Phone: [facility] Work Phone: 08-06-2021 13:23-0400 Body height 154.[address] Lizy Capone Work Phone: [facility] Work Phone: 08-06-2021 13:23-0400 Body mass index (BMI) [Ratio] 43.6 kg/m2 Dr. Lizy Capone Work Phone: [facility] Work Phone: 08-06-2021 13:23-0400 Body weight 104.[address] Lizy Capone Work Phone: [facility] Work Phone: 08-06-2021 13:23-0400 Diastolic blood pressure 79 mm[Hg] Dr. Lizy Capone Work Phone: [facility] Work Phone: 08-06-2021 13:23-0400 Heart rate 74 /min Dr. Lizy Capone Work Phone: [facility] Work Phone: 08-06-2021 13:23-0400 Respiratory rate 18 /min Dr. Lizy Capone Work Phone: [facility] Work Phone: 08-06-2021 13:23-0400 SaO2% (BldA) [Mass fraction] 95 % Dr. Lizy Capone Work Phone: [facility] Work Phone: 08-06-2021 13:23-0400 Systolic blood pressure 145 mm[Hg] Dr. Lizy Capone Work Phone: [facility] Work Phone: 07-16-2021 09:08-0400 Body weight 104.42 kg Lizy Capone MD Work Phone: [facility] 07-16-2021 09:08-0400 Diastolic blood pressure 64 mm[Hg] Lizy Capone MD Work Phone: [facility] 07-16-2021 09:08-0400 Heart rate 72 /min Lizy Capone MD Work Phone: [facility] 07-16-2021 09:08-0400 Respiratory rate 16 /min Lizy Capone MD Work Phone: [facility] 07-16-2021 09:08-0400 Systolic blood pressure 110 mm[Hg] Lizy Capone MD Work Phone: [facility] Encounters Encounter Date Encounter Type Care Provider Facility Start: 10-27-2024 End: 10-27-2024 Telephone encounter Lizy Capone MD Work Phone: [facility] Comment on above: Orders Start: 10-26-2024 End: 10-26-2024 Miryampoonam Orozco ORTHOD[employer]IC BAND [employer]KER-C Work Phone: -Emergency Department Work Phone: Start: 10-26-2024 [facility] Start: 10-26-2024 End: 10-26-2024 Emergency department patient visit Miryam Orozco ORTHOD[employer]IC BAND MAKER-C Work Phone: -Emergency Department Start: 10-25-2024 End: 10-25-2024 Dr. Norberto Jackson MD -[facility] Work Phone: Start: 10-25-2024 End: 10-25-2024 ambulatory Miryam Orozco ORTHODONTIC BAND MAKER-C Work Phone: -[facility] Start: 10-25-2024 ambulatory Gonzlao Lomax Facility:[facility] Start: 10-25-2024 Dr. Gonzalo Lomax MD -[facility] Start: 10-24-2024 End: 10-24-2024 Transitional care manage srvc 7 day discharge Lizy Capone MD Work Phone: [facility] Comment on above: BENIGN HYPERTENSION( aka HTN) (Primary Dx); Seizures (HCC); Hypothyroidism, acquired; Renal failure, unspecified chronicity; CKD (chronic kidney disease) stage 4, GFR 15-29 ml/min (HCC); Insomnia, unspecified type; Recurrent UTI (urinary tract infection); Bilateral leg edema Start: 10-24-2024 End: 10-24-2024 ambulatory LIZY CAPONE Facility:[facility] Start: 10-24-2024 ambulatory Miryam rOozco Facility :[facility] Start: 10-24-2024 Dr. Gonzalo Lomax MD -[facility] Work Phone: Start: 10-21-2024 End: 10-24-2024 Patient Outreach Alex Lackey MA [facility] Comment on above: Transition Of Care Patient Update Start: 10-20-2024 End: 10-20-2024 Telephone encounter Lizy Capone MD Work Phone: [facility] Comment on above: Follow HH Start: 10-14-2024 ambulatory William Cruz Facility :[facility] Start: 10-14-2024 William Friend DO -[facility] Start: 10-14-2024 End: 10-14-2024 William Cruz DO -Endoscopy Work Phone: Start: 10-14-2024 End: 10-14-2024 ambulatory Miryampoonam Kimballhof [employer]OD[employer]IC [employer]C Work Phone: -Endoscopy Start: 10-12-2024 End: 10-12-2024 Miryampoonam Kimballhof [employer]THOD[employer]IC BAND MAKER-C Work Phone: -Emergency Department Work Phone: Start: 10-12-2024 End: 10-12-2024 Emergency department patient visit Miryampoonam Serraf [employer]THOD[employer]IC B[employer] MAKER-C Work Phone: -Emergency Department Start: 10-11-2024 ambulatory Russell Gonzalez Facility:[facility] Start: 10-11-2024 Dr. Russell Gonzalez MD -[facility] Start: 10-11-2024 End: 10-11-2024 ambulatory Miryam Serraf [employer]OD[employer]IC [employer]C Work Phone: -Cardiovascular Services Start: 10-11-2024 End: 10-11-2024 Dr. Gautam Hardy MD -Cardiovascular Services Work Phone: Start: 10-10-2024 End: 10-11-2024 ambulatory Miryampoonam Kimballhof Facility:[facility] Start: 10-10-2024 Dr. Gonzalo Lomax MD -[facility] Start: 10-04-2024 End: 10-20-2024 Dr. Gautam Hardy MD -Transitional Care Unit Start: 10-04-2024 End: 10-20-2024 Evaluation and management of inpatient Miryampoonam Kimballhof [employer]THOD[employer]IC B[employer]KER-C Work Phone: -Transitional Care Unit Start: 10-04-2024 Dr. Alex Acosta DO -[facility] Work Phone: Start: 10-04-2024 Dr. Chayo Hernandez MD -[facility] Work Phone: Start: 10-03-2024 Dr. Alex Acosta DO -[facility] Work Phone: Start: 10-02-2024 Dr. Alex Acosta DO -[facility] Work Phone: Start: 10-01-2024 Dr. Alex Acosta DO -[facility] Work Phone: Start: 09-30-2024 Dr. Russell Todd DO -[facility] Work Phone: Start: 09-29-2024 End: 09-30-2024 Telephone encounter Lizy Capone MD Work Phone: [facility] Comment on above: Patient Update Start: 09-29-2024 Dr. Russell Todd DO -[facility] Work Phone: Start: 09-28-2024 ambulatory [facility] Facility [facility] Start: 09-28-2024 End: 10-04-2024 Evaluation and management of inpatient [facility] [employer] Work Phone: [facility] Work Phone: Start: 09-28-2024 End: 10-04-2024 Dr. Michelle Gallardo MD -Progressive Care Unit Work Phone: Start: 09-22-2024 End: 09-22-2024 Office outpatient visit 25 minutes Lizy Capone MD Work Phone: [facility] Comment on above: BENIGN HYPERTENSION( aka HTN) (Primary Dx); Lumbar spondylosis; Myofascial pain; Hypothyroidism, acquired; Anemia in chronic kidney disease, unspecified CKD stage; CKD (chronic kidney disease) stage 4, GFR 15-29 ml/min (HCC); Bilateral leg edema Start: 09-22-2024 End: 09-22-2024 ambulatory LIZY CAPONE Facility:[facility] Start: 09-20-2024 End: 09-20-2024 Follow-up encounter Lizy Capone MD Work Phone: [facility] Start: 09-20-2024 ambulatory Gonzalo Alenagumaro Facility:[facility] Start: 09-20-2024 Dr. Gonzalo Lomax MD - [facility] Start: 09-19-2024 End: 10-03-2024 ambulatory Miryam Orozco [employer] Work Phone: -[facility] [place] Start: 09-19-2024 End: 10-03-2024 Dr. Gonzalo Lomax MD -[facility] Work Phone: Start: 09-15-2024 End: 09-15-2024 Patient encounter procedure Michael Carter APRN.CNP Work Phone: [facility] Comment on above: Subacute cough (Prim maximus Dx); Leg swelling; SOB (shortness of breath); Lower respiratory infection Start: 09-15-2024 End: 09-15-2024 ambulatory MICHAEL CARTER Facility:[facility] Start: 09-14-2024 End: 09-15-2024 Telephone encounter Lizy Capone MD Work Phone: [facility] Comment on above: Results Start: 09-12-2024 ambulatory LIZY CAPONE Facil ity:[facility] Start: 09-12-2024 End: 09-12-2024 Subsequent hospital visit by physician Xr [facility] Work Phone: Radiology Comment on above: Subacute cough [R05. 2] Start: 09-12-2024 ambulatory Gonzalo Alenagumaro Facility:[facility] Start: 09-12-2024 Dr. Gonzalo Lomax MD [facility] Start: 09-12-2024 End: 09-12-2024 Telephone encounter Lizy Capone MD Work Phone: [facility] Comment on above: Patient Question; Or ders Start: 09-07-2024 End: 09-08-2024 Telephone encounter Lizy Capone MD Work Phone: [facility] Comment on above: Patient Update Start: 09-06-2024 End: 09-06-2024 Dr. Gonzalo Lmoax MD -Surgical Day Care Start: 09-06-2024 End: 09-06-2024 ambulatory Miryam Jigarhof [employer] Work Phone: [facility] Work Phone: Start: 09-05-2024 End: 09-05-2024 Telephone encounter Lizy Capone MD Work Phone: [facility] Comment on above: Medication Question Start: 09-05-2024 End: 09-05-2024 Dr. Mehdi Womack MD -[facility] Work Phone: Start: 09-05-2024 End: 09-05-2024 ambulatory [facility] [employer] Work Phone: [facility] Work Phone: Start: 09-04-2024 End: 09-04-2024 ambulatory SELF Facility:[facility] Start: 09-04-2024 End: 09-05-2024 Patient encounter procedure Deacon Valdez NAILER OPERATOR.ACCOUNTANT Work Phone: [facility] Comment on above: Lower respiratory in fection (Primary Dx) Refill Request Start: 09-01-2024 End: 09-03-2024 ambulatory [facility] [employer]C Work Phone: [facility] Work Phone: Start: 09-01-2024 End: 09-03-2024 Dr. Gonzalo Lomax [facility] Work Phone: Start: 08-30-2024 End: 09-01-2024 Telephone encounter Lizy Capone MD Work Phone: [facility] Comment on above: Patient Update Start: 08-22-2024 End: 08-22-2024 ambulatory LIZY CAPONE Facility:[facility] Start: 08-22-2024 End: 08-22-2024 Office outpatient visit 25 minutes Lizy Capone MD Work Phone: [facility] Comment on above: BENIGN HYPERTENSION( aka HTN) [...] unspecified type Start: 08-22-2024 End: 08-22-2024 ambulatory [facility] Facility:[facility] Start: 08-22-2024 ambulatory Gonzalo Lomax Facility:[facility] Start: 08-22-2024 Dr. Gonzalo Lara [facility] Start: 08-18-2024 ambulatory [facility] Facility :[facility] Start: 08-18-2024 Gustavo Lara [facility] Start: 08-16-2024 ambulatory [facility] Facility :[facility] Start: 08-16-2024 Gustavo Lara [facility] Start: 08-15-2024 ambulatory Gonzalo Lomax Facility:[facility] Start: 08-15-2024 Dr. Gonzalo Lara [facility] Start: 08-12-2024 End: 08-12-2024 Dr. Gonzalo Lomax MD -[facility] Work Phone: Start: 08-12-2024 End: 08-12-2024 ambulatory [facility] Facility:[facility] Start: 08-08-2024 ambulatory [facility] Facility :[facility] Start: 08-08-2024 Gustavo Lara [facility] Turcios Start: 08-01-2024 ambulatory Gustavo Rosario cility:[facility] Start: 08-01-2024 Gustavo Turcios Start: 07-29-2024 End: 07-29-2024 [facility] [employer] Work Phone: -Emergency Department Work Phone: Start: 07-29-2024 End: 07-29-2024 Emergency department patient visit Miryam Orozco [employer]C Work Phone: [facility] Work Phone: Start: 07-25-2024 ambulatory Efewongbe Oleghe OLS Fa cility:[facility] Start: 07-25-2024 Gustavo Turcios Start: 07-20-2024 End: 07-20-2024 ambulatory Miryam Orozco [employer]C Work Phone: [facility] Work Phone: Start: 07-20-2024 End: 07-20-2024 Minna BARAHONA -[facility] Work Phone: Start: 07-18-2024 ambulatory Efewongbe Oleghe OLS Fa cility:[facility] Start: 07-18-2024 Gustavo Turcios Start: 07-11-2024 ambulatory Efewongbe Oleghe OLS Fa cility:[facility] Start: 07-11-2024 Gustavo Garrett - [facility] Start: 07-04-2024 ambulatory Efewongbe Oleghe OLS Fa cility:[facility] Start: 07-04-2024 Gustavo Turcios Start: 07-01-2024 End: 07-04-2024 Refill Lizy Capone MD Work Phone: [facility] Comment on above: Refill Request Start: 06-27-2024 ambulatory Efewongbe Oleghe OLS Fa cility:[facility] Start: 06-27-2024 Gustavo Turcios Start: 06-22-2024 End: 06-22-2024 ambulatory Miryam Orozco Facility:[facility] Start: 06-22-2024 End: 06-22-2024 Minna HUNTC -[facility] Work Phone: Start: 06-20-2024 ambulatory Gustavo Castorena OLS Fa cility:[facility] Start: 06-20-2024 Gustavo Castorena MD [facility] Gerry Turcios Start: 06-14-2024 End: 06-14-2024 ambulatory [facility] Facility:[facility] Start: 06-14-2024 End: 06-14-2024 Dr. Gustavo Castorena MD [facility] Work Phone: Start: 06-13-2024 End: 06-13-2024 ambulatory Minna Villarreal Facility:[facility] Start: 06-13-2024 End: 06-13-2024 [facility] Start: 06-10-2024 Dr. Mari Mehta [facility] Work Phone: Start: 06-09-2024 Dr. Mari Mehta [facility] Work Phone: Start: 06-07-2024 Christa Michel RN -[facility] Work Phone: Start: 06-07-2024 ambulatory [facility] Facility :[facility] Start: 06-07-2024 Dr. Mari Mehta [facility] Work Phone: Start: 06-06-2024 Dr. Mari Mehta [facility] Work Phone: Start: 06-02-2024 Dr. Mari Mehta [facility] Work Phone: Start: 05-31-2024 Dr. Mari Mehta [facility] Work Phone: Start: 05-30-2024 Dr. Mari Mehta [facility] Work Phone: Start: 05-27-2024 Dr. Mari Metha [facility] Work Phone: Start: 05-26-2024 Dr. Mari Mehta [facility] Work Phone: Start: 05-23-2024 Dr. Mari Mehta [facility] Work Phone: Start: 05-20-2024 Dr. Mari Mehta [facility] Work Phone: Start: 05-19-2024 Dr. Mari Mehta [facility] Work Phone: Start: 05-18-2024 ambulatory Mari Mehta Facility[facility] Start: 05-18-2024 End: 06-10-2024 Evaluation and management of inpatient Amir Adeli Facility:[facility] Start: 05-18-2024 End: 06-10-2024 Dr. Mari Mehta DO -Rehab Unit Work Phone: Start: 05-04-2024 End: 05-04-2024 ambulatory [facility] Facility:[facility] Start: 05-04-2024 End: 05-18-2024 Evaluation and management of inpatient Kindra Gannon MD Work Phone: [facility] Start: 05-04-2024 Dr. Edgar Davies DO -[facility] Start: 05-03-2024 Dr. Edgar Davies DO -[facility] Start: 05-02-2024 End: 05-02-2024 Telephone encounter Lizy Capone MD Work Phone: [facility] [place] Comment on above: Patient Update Start: 05-02-2024 Dr. Edgar Davies DO -[facility] Start: 05-02-2024 Dr. Ralph Haynes MD -[facility] Work Phone: Start: 05-02-2024 End: 05-02-2024 ambulatory Hua Arellano Facility:[facility] Start: 05-02-2024 End: 05-02-2024 Dr. Hua Arellano MD -[place] [facility] Work Phone: Start: 05-01-2024 ambulatory Qian Albrecht Facil ity:[facility] Start: 05-01-2024 End: 05-04-2024 [facility] Start: 05-01-2024 End: 05-04-2024 Dr. Adithya Harrell MD -Intensive Care Uni t Work Phone: Start: 04-28-2024 End: 04-28-2024 ambulatory Miryam Kimballhof ORTHODONTIC BAND MAKER-C Work Phone: [facility] Work Phone: Start: 04-28-2024 End: 04-28-2024 Dr. Mari Mehta DO -Physical Therapy Work Phone: Start: 03-16-2024 End: 03-16-2024 ambulatory LIZY CAPONE Facility:[facility] Start: 03-07-2024 End: 03-07-2024 Refill Miryampoonam Kimballmirzaf NAILER OPERATOR.CJ Work Phone: [facility] Comment on above: Refill Request Start: 03-04-2024 End: 03-04-2024 [facility] Start: 03-01-2024 ambulatory Miryam Tannhof Facility :[facility] Start: 02-24-2024 ambulatory Miryam Tannhof Facility :[facility] Start: 02-24-2024 End: 03-03-2024 [facility] Start: 02-16-2024 End: 02-16-2024 ambulatory Miryam Tannhof Facility:[facility] Start: 02-12-2024 End: 02-12-2024 Telephone encounter Lizy Capone MD Work Phone: [facility] Comment on above: medical clearance fo rm ([facility] for shoulder surgery) Start: 02-09-2024 Patient encounter status Ashle y Russell ORTHODONTIC BAND MAKER-C Work Phone: [facility] Start: 02-09-2024 Encounter for other preprocedural examination Combscordell Jackson [facility] Start: 02-09-2024 End: 02-09-2024 ambulatory [...] for immunization Start: 01-28-2024 End: 01-28-2024 ambulatory [facility] Facility:[facility] Start: 01-26-2024 End: 01-26-2024 [facility] Facility:[facility] Start: 12-29-2023 End: 02-08-2024 Telephone encounter Stephanie Jackson MD Work Phone: Orthopaedics Comment on above: Appointment Start: 12-17-2023 End: 12-17-2023 Patient encounter procedure Roque Delgado MD Work Phone: [facility] Comment on above: 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); Lumbar spondylosis Start: 12-17-2023 End: 12-17-2023 ambulatory ROQUE DELGADO Facility:[facility] Start: 12-16-2023 End: 12-17-2023 Telephone encounter Miryam Orozco APRN.CNP Work Phone: [facility] [place] Comment on above: Results (Labs ) Start: 12-14-2023 End: 12-14-2023 Telephone encounter Miryam Orozco APRN.CNP Work Phone: [facility] [place] Comment on above: Returning Patient's Call Start: 12-14-2023 End: 12-14-2023 ambulatory [facility] Facility:[facility] Start: 12-11-2023 End: 12-11-2023 Refill Miryam Orozco APRN.CNP Work Phone: [facility] Comment on above: Refill Request Start: 12-04-2023 End: 12-04-2023 ambulatory STARR MARQUES Facility:[facility] Start: 12-04-2023 End: 12-04-2023 Patient encounter procedure Starr Marques MD Work Phone: OB/Gynecology Comment on above: Complex endometrial hyperplasia with atypia (Primary Dx); IUD (intrauterine device) in place Start: 12-01-2023 End: 12-01-2023 ambulatory Qian Albrecht Facility:[facility] Start: 11-18-2023 Telephone encounter Roque Delgado MD Work Phone: [facility] [place] Comment on above: Procedure Start: 11-16-2023 End: 11-16-2023 Patient encounter procedure Roque Delgado MD Work Phone: [facility] [place] Start: 11-16-2023 End: 11-16-2023 ambulatory Roque Delgado MD Work Phone: [facility] [place] Comment on above: Procedure; Pain (Marie ulder Pain) (RFA Right suprascapular) Start: 11-15-2023 Refill Mulugeta ÁLVAREZ RN.ACCOUNTANT Work Phone: [facility] Comment on above: Refill Request Start: 11-09-2023 End: 11-09-2023 Patient encounter procedure Miryam Orozco APRN.ACCOUNTANT Work Phone: [facility] Comment on above: Dizziness (Primary D x); BENIGN HYPERTENSION(aka HTN); Hyperlipidemia LDL goal <100; Leg swelling; CKD (chronic kidney disease) stage 4, GFR 15-29 ml/min (HCC); Female stress incontinence; Chronic right-sided low back pain without sciatica; Chronic knee pain, unspecified laterality; Chronic shoulder pain, unspecified laterality; Hypothyroidism, acquired; Insomnia, unspecified type Start: 11-09-2023 End: 11-09-2023 ambulatory LIZY CAPONE Facility:[facility] Start: 10-28-2023 Telephone encounter Roque Delgado MD Work Phone: [facility] [place] Comment on above: Injections Start: 10-27-2023 Telephone encounter Roque Delgado MD Work Phone: [facility] [place] Comment on above: Returning Patient's Call Start: 09-28-2023 Refill Lizy bran MD Work Phone: [facility] [place] Comment on above: Refill Request Start: 09-21-2023 Refill Lizy bran MD Work Phone: [facility] [place] Comment on above: Refill Request Start: 08-28-2023 Telephone encounter Roque Delgado MD Work Phone: [facility] [place] Start: 08-27-2023 Telephone encounter Roque Delgado MD Work Phone: [facility] [place] Comment on above: Returning Patient's Call Start: 08-14-2023 End: 08-14-2023 ambulatory Keyana Greenberg RYAN Work Phone: [facility] [place] Comment on above: 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); Lumbar spondylosis; Myofascial pain; Pleurodynia Start: 08-14-2023 End: 08-14-2023 Telemedicine consultation with patient Keyana Greenberg PA-C Work Phone: [facility] [place] Start: 08-14-2023 End: 08-14-2023 ambulatory KEYANA GREENBERG Facility:[facility] Start: 07-22-2023 End: 07-22-2023 Patient encounter procedure Miryam Orozco APRN.CNP Work Phone: [facility] [place] Comment on above: 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); Chronic right-sided low back pain without sciatica; Chronic knee pain, unspecified laterality; Chronic shoulder pain, unspecified laterality; Leg swelling; CKD (chronic kidney disease) stage 4, GFR 15-29 ml/min ([facility]); BENIGN HYPERTENSION(aka HTN); Hypothyroidism, acquired; Hyperlipidemia LDL goal <100; Insomnia, unspecified type; Chronic constipation Start: 07-15-2023 End: 07-15-2023 Patient encounter procedure Roque Delgado MD Work Phone: [facility] Start: 07-15-2023 End: 07-15-2023 ambulatory Roque Delgado MD Work Phone: [facility] [place] Comment on above: Procedure (rfa); Chris n (Shoulder Pain) (left) Start: 06-29-2023 Refill Lizy bran MD Work Phone: [facility] Comment on above: Refill Request Start: 06-22-2023 Refill Miryam Orozco APRN.ACCOUNTANT Work Phone: [facility] Comment on above: Refill Request Start: 06-16-2023 Refill Roque Delgado MD Work Phone: [facility] Comment on above: Refill Request Start: 06-09-2023 Non-patient / Non-visit Dr. Pravin Toney Work Phone: [facility] Work Phone: Start: 06-08-2023 Non-patient / Non-visit Dr. 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) Start: 06-02-2023 End: 06-02-2023 Telemedicine consultation with patient Rebekah Bobo APRN.CNP Work Phone: [facility] Start: 06-02-2023 End: 06-02-2023 ambulatory REBEKAH BOBO Facility:[facility] Start: 05-20-2023 Telephone encounter Roque Delgado MD Work Phone: [facility] [place] Comment on above: Procedure Start: 05-18-2023 End: 05-18-2023 Patient encounter procedure Roque Delgado MD Work Phone: [facility] Start: 05-18-2023 End: 05-18-2023 ambulatory Roque Delgado MD Work Phone: [facility] [place] Comment on above: Procedure Start: 04-16-2023 End: 04-16-2023 ambulatory ROQUE DELGADO Facility:[facility] Start: 03-31-2023 End: 03-31-2023 Subsequent hospital visit by physician [facility] Work Phone: Radiology Comment on above: Acute cough [R05.1] Start: 03-02-2023 End: 03-02-2023 ambulatory Rebekah Bobo NAILER OPERATOR.ACCOUNTANT Work Phone: [facility] [place] Comment on above: 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) Start: 03-02-2023 End: 03-02-2023 Telemedicine consultation with patient Rebekah Bobo NAILER OPERATOR.ACCOUNTANT Work Phone: [facility] Start: 03-02-2023 End: 03-03-2023 ambulatory LIZY Manning [facility] Facility:[facility] Start: 02-16-2023 End: 02-16-2023 Patient encounter procedure Roque Delgado MD Work Phone: [facility] Start: 02-16-2023 End: 02-16-2023 ambulatory Roque Delgado MD Work Phone: [facility] [place] Comment on above: Procedure (G[place] ral Joint injection - bilateral) Start: 01-15-2023 Telephone encounter Roque Delgado MD Work Phone: [facility] Comment on above: Injection Questions Start: 01-15-2023 End: 01-15-2023 Subsequent hospital visit by physician Te[facility]o [facility] Work Phone: Radiology Comment on above: Primary osteoarthrit is of both shoulders [M19.011, M19.012] Start: 01-15-2023 End: 01-15-2023 Patient encounter procedure Roque Delgado MD Work Phone: [facility] Comment on above: 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); Lumbar spondylosis; Myofascial pain; Rotator cuff impingement syndrome, unspecified laterality Start: 01-15-2023 End: 01-15-2023 ambulatory LIZY CAPONE Facility:[facility] Start: 12-24-2022 Telephone encounter Miryam guzman APRN.CNP Work Phone: [facility] Comment on above: Results (Labs ) Start: 12-22-2022 End: 12-22-2022 Patient encounter procedure Miryam Orozco APRN.ACCOUNTANT Work Phone: [facility] Comment on above: 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); Chronic right-sided low back pain without sciatica; BENIGN HYPERTENSION(aka HTN); Hypothyroidism, acquired; Insomnia, unspecified type; Leg swelling; Decreased glomerular filtration rate (GFR); Chronic knee pain, unspecified laterality; Acute pain of left shoulder Start: 12-04-2022 Refill Roque Delgado MD Work Phone: [facility] [place] Comment on above: Refill Request Start: 10-16-2022 End: 10-16-2022 Patient encounter procedure Roque Delgado MD Work Phone: [facility] Comment on above: Lumbar spondylosis ( Primary Dx); Myofascial pain Start: 10-15-2022 End: 10-15-[address] Lizy Capone Work Phone: [facility] Work Phone: Start: 10-15-2022 End: 10-15-[address] Lizy Capone Work Phone: [facility]-Laboratory, Phy Office 3rd Flr Start: 10-08-2022 Refill Lizy bran MD Work Phone: [facility] [place] Comment on above: Refill Request Start: 10-03-2022 End: 10-03-[address] Lizy Capone Work Phone: [facility] [facility] Work Phone: Start: 10-02-2022 End: 10-02-2022 Patient encounter procedure Roque Delgado MD Work Phone: [facility] [place] Comment on above: Lumbar spondylosis ( Primary Dx); Chronic bilateral low back pain without sciatica Start: 08-13-2022 End: 08-13-2022 ambulatory Roque Delgado MD Work Phone: [facility] [place] Comment on above: Procedure Start: 08-13-2022 End: 08-13-2022 Patient encounter procedure Roque Delgado MD Work Phone: [facility] Start: 08-04-2022 Telephone encounter Roque Delgado MD Work Phone: [facility] [place] Comment on above: Results Start: 08-01-2022 End: 08-01-2022 Admission to same day surgery center Dr. Lizy Capone Work Phone: [facility]-Audiovisual Librarian/Special Procedures Start: 08-01-2022 End: 08-01-[address] Lizy Capone Work Phone: [facility] Work Phone: Start: 07-31-2022 Non-patient / Non-visit Dr. Manjeet Capone Work Phone: [facility] Start: 07-31-2022 End: 07-31-2022 Subsequent hospital visit by physician [facility] Work Phone: Radiology Comment on above: Closed fracture of b ase of fifth metatarsal bone of right foot at metaphyseal-diaphyseal junction, initial encounter [S99.191A] Start: 07-30-2022 End: 07-30-2022 ambulatory Roque Delgado MD Work Phone: [facility] [place] Comment on above: Procedure (SPR) Start: 07-30-2022 End: 07-30-2022 Patient encounter procedure Roque Delgado MD Work Phone: [facility] Start: 07-14-2022 Refill Lizy bran MD Work Phone: [facility] Comment on above: Refill Request (OUT OF MEDICATION) Start: 07-07-2022 Non-patient / Non-visit Dr. 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 Lizy Capone Work Phone: [facility] Start: 06-26-2022 End: 06-26-2022 Patient encounter procedure Miryam Orozco APRN.ACCOUNTANT Work Phone: [facility] Comment on above: Dysuria (Primary Dx) ; Female stress incontinence; Leg swelling; Chronic knee pain, unspecified laterality; Chronic right-sided low back pain without sciatica; Change in stool Start: 06-11-2022 End: 06-11-[address] Lizy Capone Work Phone: [facility] Work Phone: Start: 06-11-2022 End: 06-11-[address] Lizy Capone Work Phone: [facility]-Laboratory Start: 06-04-2022 Telephone encounter Roque Delgado MD Work Phone: [facility] [place] Comment on above: Appointment ([facility] ed for SPR device) Start: 05-30-2022 Telephone encounter Roque Delgado MD Work Phone: [facility] [place] Comment on above: Appointment Start: 05-26-[address] MD Work Phone: [facility] Comment on above: Consult Start: 05-19-2022 Telephone encounter Miryam Beebe nhof NAILER OPERATOR.ACCOUNTANT Work Phone: [facility] Comment on above: Appointment Start: 05-15-2022 Telephone encounter Roque Delgado MD Work Phone: [facility] [place] Comment on above: Injections Start: 05-14-2022 End: 05-14-[address] Lizy Capone Work Phone: [facility] Work Phone: Start: 05-14-2022 End: 05-14-[address] Lizy Capone [facility] Start: 05-13-2022 End: 05-13-2022 Subsequent hospital visit by physician [facility] Work Phone: Radiology Comment on above: Fall, initial encoun ter [W19.XXXA] Start: 05-13-2022 End: 05-13-2022 Patient encounter procedure Jae Cagle MD Work Phone: General Surgery Comment on above: C. difficile colitis (Primary Dx); Rectal bleeding; Change in stool; Fall, initial encounter Start: 05-06-2022 Telephone encounter Noemy Jessica carmina NAILER OPERATOR.ACCOUNTANT Work Phone: [facility] Comment on above: Results Start: 04-30-2022 Telephone encounter Miryam Beebe megan NAILER OPERATOR.ACCOUNTANT Work Phone: [facility] Comment on above: Results Start: 04-29-2022 End: 04-29-2022 Subsequent hospital visit by physician [facility] (I-Stat/1.5t) Work Phone: Radiology Comment on above: Lumbar spondylosis [ M47.816] Start: 04-28-2022 Telephone encounter Lizy lucero MD Work Phone: [facility] Comment on above: MRI request Start: 04-17-2022 Refill Lizy bran MD Work Phone: [facility] Comment on above: Refill Request Start: 04-16-2022 Refill Mulugeta ÁLVAREZ RN.ACCOUNTANT Work Phone: [facility] Comment on above: Refill Request Start: 03-19-2022 End: 03-19-[address] Lizy Capone Work Phone: [facility] Work Phone: Start: 03-19-2022 End: 03-19-[address] Lizy Capone Work Phone: [facility]-Laboratory, Phy Office 3rd Flr Start: 03-06-2022 End: 03-06-[address] Lizy Capone Work Phone: [facility]-Laboratory, Specimen Start: 03-06-2022 End: 03-06-[address] Lizy Capone Work Phone: [facility] Start: 03-04-2022 End: 03-04-2022 ambulatory Natalia Perdomo [facility] Comment on above: Population Health Na vigation Outreach (HCC Gaps) Start: 03-04-2022 End: 03-04-[address] Lizy Capone Work Phone: [facility]-Laboratory Start: 02-13-2022 Non-patient / Non-visit Dr. Manjeet Capone Work Phone: [facility] Start: 02-13-2022 Orders Only Roque Delgado MD Work Phone: [facility] [place] Comment on above: Lumbar spondylosis ( Primary Dx) requesting prescript ion Start: 01-30-2022 End: 01-30-2022 Patient encounter procedure Roque Delgado MD Work Phone: [facility] Comment on above: Lumbar spondylosis ( Primary Dx); Myofascial pain Start: 01-30-2022 Telephone encounter Roque Delgado MD Work Phone: [facility] Comment on above: Patient Update (Inje ction questions for lodi) Start: 01-28-2022 End: 01-28-[address] Lizy Capone Work Phone: [facility] Work Phone: Start: 01-28-2022 End: 01-28-[address] Lizy Capone Work Phone: [facility]-Laboratory Start: 01-20-2022 Refill Lizy bran MD Work Phone: [facility] Comment on above: Refill Request Start: 01-14-2022 End: 01-14-[address] Lizy Capone Work Phone: [facility] Start: 01-14-2022 Telephone encounter Rebekah Bobo NAILER OPERATOR.ACCOUNTANT Work Phone: [facility] [place] Comment on above: error Start: 01-08-2022 Telephone encounter Miryam guzman NAILER OPERATOR.ACCOUNTANT Work Phone: [facility] Comment on above: Results (Labs ) Start: 01-08-2022 End: 01-08-2022 Subsequent hospital visit by physician Roque Delgado MD Work Phone: [facility] Comment on above: Lumbar spondylosis [ M47.816] Start: 01-07-2022 Telephone encounter Lizy lucero MD Work Phone: [facility] Comment on above: Faxed Referral Start: 01-06-2022 End: 01-06-2022 ambulatory Allison Lemon PT [facility] Physical [facility] Comment on above: Lymphedema (Primary Dx) Start: 01-03-2022 End: 01-03-2022 Subsequent hospital visit by physician [facility] Work Phone: Radiology Comment on above: Abdominal distension [R14.0] Start: 01-02-2022 End: 01-02-2022 Patient encounter procedure Miryam Orozco APRN.ACCOUNTANT Work Phone: [facility] Comment on above: Leg swelling (Primar y Dx); Shortness of breath ; Abdominal distension; Function kidney decreased Start: 01-01-2022 End: 01-01-2022 ambulatory Allison Lemon PT [facility] Physical Therapy Comment on above: Lymphedema (Primary Dx) Start: 12-26-2021 End: 12-26-2021 ambulatory Avis Marrufo APRN.ACCOUNTANT Work Phone: [facility] [place] Comment on above: Lumbar spondylosis ( Primary Dx); Myofascial pain; Other chronic pain Start: 12-26-2021 End: 12-26-2021 Telemedicine consultation with patient Avis Marrufo APRN.ACCOUNTANT Work Phone: [facility] Start: 12-26-2021 End: 12-26-[address] Lizy Capone Work Phone: [facility] Work Phone: Start: 12-26-2021 End: 12-26-[address] Lizy Capone Work Phone: [facility] Start: 12-25-2021 End: 12-25-2021 Subsequent hospital visit by physician Roque Delgado MD Work Phone: [facility] Comment on above: Lumbar spondylosis [ M47.816] Start: 12-22-2021 Refill Avis snyder APRN.CNP Work Phone: [facility] Comment on above: Refill Request Start: 12-19-2021 Non-patient / Non-visit Dr. Manjeet Capone Work Phone: [facility] Start: 12-19-2021 End: 12-19-[address] Lizy Capone Work Phone: [facility] Work Phone: Start: 12-19-2021 End: 12-19-[address] Lizy Capone Work Phone: [facility]-Cardiovascul ar Services Start: 12-19-2021 End: 12-19-[address] Lizy Capone Work Phone: [facility] Start: 12-16-2021 End: 12-16-2021 ambulatory Allison Lemon PT [facility] Physical Therapy Comment on above: Lymphedema (Primary Dx) Start: 12-11-2021 End: 12-11-2021 ambulatory Allison Lemon PT [facility] Comment on above: Lymphedema (Primary Dx) Start: 12-03-2021 Orders Only Roque Delgado MD Work Phone: [facility] [place] Comment on above: Lumbar spondylosis ( Primary Dx) Start: 12-02-2021 End: 12-02-2021 ambulatory Allison Lemon PT [facility] Comment on above: Lymphedema (Primary Dx) Start: 11-26-2021 Refill Lizy bran MD Work Phone: [facility] Comment on above: Refill Request Start: 11-22-2021 End: 11-22-2021 ambulatory Allison Lemon PT [facility] Comment on above: Lymphedema (Primary Dx); Lumbar spondylosis; Thoracic spine pain; Myofascial pain Start: 11-13-2021 Orders Only Lizy bran MD Work Phone: [facility] Comment on above: Lymphedema (Primary Dx) Start: 11-12-2021 End: 11-12-2021 ambulatory Jerod Flynn PT [facility] Comment on above: Chronic midline low back pain with sciatica, sciatica laterality unspecified (Primary Dx) Start: 11-05-2021 End: 11-05-2021 ambulatory Jerod Flynn PT [facility] Comment on above: Chronic midline low back pain with sciatica, sciatica laterality unspecified (Primary Dx) Start: 10-24-2021 Refill Lizy bran MD Work Phone: [facility] Comment on above: Refill Request Start: 10-22-2021 End: 10-22-2021 ambulatory Jerod Flynn PT [facility] Comment on above: Chronic midline low back pain with sciatica, sciatica laterality unspecified (Primary Dx) Start: 10-21-2021 Orders Only Lizy bran MD Work Phone: [facility] Comment on above: Population Health Na vigation Outreach (HCC) Start: 10-01-2021 Refill Lizy bran MD Work Phone: [facility] Comment on above: Refill Request Start: 09-20-2021 End: 09-20-2021 Subsequent hospital visit by physician Tereso [facility] Joseph Liu Work Phone: Radiology Comment on above: Lumbar spondylosis [ M47.816] Start: 09-19-2021 Telephone encounter Avis aquino APRN.ACCOUNTANT Work Phone: [facility] Comment on above: Patient Update (Cons ult ) Start: 09-19-2021 End: 09-19-2021 Patient encounter procedure Avis Marrufo APRN.ACCOUNTANT Work Phone: [facility] Comment on above: Lumbar spondylosis ( Primary Dx); Other chronic pain; Thoracic spine pain; Myofascial pain Start: 09-17-2021 End: 09-17-[address] Lizy Capone Work Phone: [facility] Start: 09-12-2021 Refill Lizy bran MD Work Phone: [facility] Comment on above: Refill Request Start: 08-29-2021 Non-patient / Non-visit Dr. Manjeet Capone Work Phone: [facility] Start: 08-29-2021 End: 08-29-[address] Lizy Capone Work Phone: [facility] Start: 08-06-2021 End: 08-06-[address] Lizy Capone Work Phone: [facility] Start: 08-01-2021 Telephone encounter Lizy lucero MD Work Phone: [facility] Comment on above: Results - Ct Start: 07-26-2021 Refill Lizy bran MD Work Phone: [facility] Comment on above: Refill Request Start: 07-25-2021 End: 07-25-2021 Subsequent hospital visit by physician [facility]) Work Phone: Cat Scan Comment on above: Left upper quadrant abdominal pain [R10.12] Start: 07-18-2021 Telephone encounter Lizy lucero MD Work Phone: [facility] Comment on above: Results Start: 07-16-2021 End: 07-16-2021 Subsequent hospital visit by physician Xr [facility] Work Phone: Radiology Comment on above: SOB (shortness of br eath) [R06.02] Start: 07-16-2021 End: 07-16-2021 Patient encounter procedure Lizy Caopne MD Work Phone: [facility] Comment on above: BENIGN HYPERTENSION( aka HTN) (Primary Dx); Insomnia, unspecified type; Hypothyroidism, acquired; Bilateral leg edema; Female stress incontinence; Dyspepsia; Upper back pain; Change in bowel function; SOB (shortness of breath); Rib pain on left side Procedures Date Procedure Procedure Detail Performing Clinician Start: 10-19-2024 Blood count smear mcrscp w/mnl difrntl wbc count Miryam Serraf [employer]IC B[employer]ER[employer] Work Phone: Start: 10-19-2024 Estimated creatinine clearance Miryam contehof [employer] Work Phone: Start: 10-19-2024 Mean corpuscular hemoglobin concentration determination Miryam Kimballhof [employer] Work Phone: Start: 10-19-2024 Nucleated red blood cell count procedure Miryam Serraf [employer] Work Phone: Start: 10-19-2024 Platelet mean volume determination Parminder Kimballhof [employer] Work Phone: Start: 10-14-2024 Esophagogastroduodenoscopy Miryam Serra f [employer] Work Phone: Start: 10-13-2024 Measurement of occult blood in stool specimen using immunoassay Miryam Orozco [employer] Work Phone: Start: 10-12-2024 Blood count smear mcrscp w/mnl difrntl wbc count Miryam Kimballhof [employer] Work Phone: Start: 10-12-2024 Estimated creatinine clearance Miryam contehof [employer] Work Phone: Start: 10-12-2024 Mean corpuscular hemoglobin concentration determination Miryam Kimballhof [employer] Work Phone: Start: 10-12-2024 Nucleated red blood cell count procedure Miryam Kimballhof [employer] Work Phone: Start: 10-12-2024 Platelet mean volume determination Parminder Kimballhof [employer] Work Phone: Start: 10-12-2024 Blood count smear mcrscp w/mnl difrntl wbc count Miryam Serraf [employer] Work Phone: Start: 10-12-2024 Estimated creatinine clearance Miryam guerrerof [employer] Work Phone: Start: 10-12-2024 Mean corpuscular hemoglobin concentration determination Miryam Orozco [employer] Work Phone: Start: 10-12-2024 Nucleated red blood cell count procedure Miryam Orozco [employer] Work Phone: Start: 10-12-2024 Platelet mean volume determination Parminder Orozco [employer] Work Phone: Start: 10-06-2024 Urine microscopy: red cells Miryam Tai [employer] Work Phone: Start: 10-06-2024 Urnls dip stick/tablet reagent auto microscopy Miryam Orozco [employer] Work Phone: Start: 10-06-2024 Urine culture Miryam Orozco [employer] Work Phone: Start: 10-04-2024 Estimated creatinine clearance Miryam saravia [employer] Work Phone: Start: 10-03-2024 Blood count smear mcrscp w/mnl difrntl wbc count Miryam Orozco [employer] Work Phone: Start: 10-03-2024 Estimated creatinine clearance Miryam saravia [employer] Work Phone: Start: 10-03-2024 Mean corpuscular hemoglobin concentration determination Miryam Orozco [employer] Work Phone: Start: 10-03-2024 Nucleated red blood cell count procedure Miryam Orozco [employer] Work Phone: Start: 10-03-2024 Platelet mean volume determination Parminder Orozco [employer] Work Phone: Start: 10-02-2024 Serum inorganic phosphate measurement Miryam Orozco [employer] Work Phone: Start: 10-01-2024 Carbon dioxide measurement, partial pressure Miryam Orozco [employer] Work Phone: Start: 10-01-2024 Gases blood o2 saturation only direct farheen Miryam Orozco [employer] Work Phone: Start: 10-01-2024 Measurement of partial pressure of oxygen in blood Miryam Orozco [employer] Work Phone: Start: 10-01-2024 Oxygen measurement Miryam Orozco [employer] Work Phone: Start: 09-30-2024 Urine culture Miryam Orozco [employer] Work Phone: Start: 09-29-2024 Urine culture Miryam Orozco [employer] Work Phone: Start: 09-28-2024 Complete ultrasound of kidneys and bladder Miryam Orozco [employer] Work Phone: Start: 09-28-2024 Urine microscopy: red cells Miryam Driscoll of [employer] Work Phone: Start: 09-28-2024 Urnls dip stick/tablet reagent auto microscopy Miryam Orozco [employer] Work Phone: Start: 09-28-2024 Blood count smear mcrscp w/mnl difrntl wbc count Miryam Orozco [employer] Work Phone: Start: 09-28-2024 Mean corpuscular hemoglobin concentration determination Miryam Orozco [employer] Work Phone: Start: 09-28-2024 Nucleated red blood cell count procedure Miryam Orozco [employer] Work Phone: Start: 09-28-2024 Platelet mean volume determination Parminder Orozco [employer] Work Phone: Start: 09-28-2024 Triacylglycerol lipase measurement Parminder Serraf [employer] Work Phone: Start: 09-28-2024 X-ray of knee, one or two views Miryam brantley [employer] Work Phone: Start: 09-28-2024 CT of head without contrast Miryam Driscoll of [employer] Work Phone: Start: 09-28-2024 X-ray of knee, one or two views Miryam garcíahof [employer] Work Phone: Start: 09-06-2024 Procedure on wound Miryam Serraf [employer] Work Phone: Start: 08-22-2024 Blood count smear mcrscp w/mnl difrntl wbc count Miryam Kimballhof [employer] Work Phone: Start: 08-22-2024 Mean corpuscular hemoglobin concentration determination Miryam Kimballhof [employer] Work Phone: Start: 08-22-2024 Nucleated red blood cell count procedure Miryam Serraf [employer] Work Phone: Start: 08-22-2024 Platelet mean volume determination Parminder Kimballhof [employer] Work Phone: Start: 08-18-2024 Blood count smear mcrscp w/mnl difrntl wbc count Miryam Kimballhof [employer] Work Phone: Start: 08-18-2024 Mean corpuscular hemoglobin concentration determination Miryam Serraf [employer] Work Phone: Start: 08-18-2024 Nucleated red blood cell count procedure Miryam Serraf [employer] Work Phone: Start: 08-18-2024 Platelet mean volume determination Parminder Serraf [employer] Work Phone: Start: 08-16-2024 Blood count smear mcrscp w/mnl difrntl wbc count Miryam Kimballhof [employer] Work Phone: Start: 08-16-2024 Mean corpuscular hemoglobin concentration determination Miryam Kimballhof [employer] Work Phone: Start: 08-16-2024 Nucleated red blood cell count procedure Miryam Serraf [employer] Work Phone: Start: 08-16-2024 Platelet mean volume determination Parminder Kimballhof [employer] Work Phone: Start: 08-08-2024 Blood count smear mcrscp w/mnl difrntl wbc count Miryam Kimballhof [employer] Work Phone: Start: 08-08-2024 Mean corpuscular hemoglobin concentration determination Miryam Kimballhof [employer] Work Phone: Start: 08-08-2024 Nucleated red blood cell count procedure Miryam Kimballhof [employer] Work Phone: Start: 08-08-2024 Platelet mean volume determination Tatele y Tannhof [employer] Work Phone: Start: 08-01-2024 Blood count smear mcrscp w/mnl difrntl wbc count Miryam Kimballhof [employer] Work Phone: Start: 08-01-2024 Mean corpuscular hemoglobin concentration determination Miryam Kimballhof [employer] Work Phone: Start: 08-01-2024 Nucleated red blood cell count procedure Miryam Kimballhof [employer] Work Phone: Start: 08-01-2024 Platelet mean volume determination Parminder y Tannhof [employer] Work Phone: Start: 07-29-2024 Plain X-ray of tibia and fibula Miryam garcíahof [employer] Work Phone: Start: 07-25-2024 Blood count smear mcrscp w/mnl difrntl wbc count Miryam Kimballhof [employer] Work Phone: Start: 07-25-2024 Mean corpuscular hemoglobin concentration determination Miryam Kimballhof [employer] Work Phone: Start: 07-25-2024 Nucleated red blood cell count procedure Miryam Kimballhof [employer] Work Phone: Start: 07-25-2024 Platelet mean volume determination Tatele y Tannhof [employer] Work Phone: Start: 07-18-2024 Blood count smear mcrscp w/mnl difrntl wbc count Miryam Kimballhof [employer] Work Phone: Start: 07-18-2024 Mean corpuscular hemoglobin concentration determination Miryam Kimballhof [employer] Work Phone: Start: 07-18-2024 Nucleated red blood cell count procedure Miryam Kimballhof [employer] Work Phone: Start: 07-18-2024 Platelet mean volume determination Tatele y Jigarhof [employer]-C Work Phone: Start: 07-11-2024 Blood count smear mcrscp w/mnl difrntl wbc count Miryam Kimballhof [employer] Work Phone: Start: 07-11-2024 Mean corpuscular hemoglobin concentration determination Miryam Kimballhof [employer] Work Phone: Start: 07-11-2024 Nucleated red blood cell count procedure Miryam Kimballhof [employer] Work Phone: Start: 07-11-2024 Platelet mean volume determination Parminder Kimballhof [employer] Work Phone: Start: 07-04-2024 Blood count smear mcrscp w/mnl difrntl wbc count Miryam Kimballhof [employer] Work Phone: Start: 07-04-2024 Mean corpuscular hemoglobin concentration determination Miryam Kimballhof [employer] Work Phone: Start: 07-04-2024 Nucleated red blood cell count procedure Miryam Kimballhof [employer] Work Phone: Start: 07-04-2024 Platelet mean volume determination Parminder Kimballhof [employer] Work Phone: Start: 06-27-2024 Blood count smear mcrscp w/mnl difrntl wbc count Miryam Kimballhof [employer] Work Phone: Start: 06-27-2024 Mean corpuscular hemoglobin concentration determination Miryam Kimballhof [employer] Work Phone: Start: 06-27-2024 Nucleated red blood cell count procedure Miryam Kimballhof [employer] Work Phone: Start: 06-27-2024 Platelet mean volume determination Parminder Kimballhof [employer] Work Phone: Start: 06-20-2024 Blood count smear mcrscp w/mnl difrntl wbc count Miryampoonam Kimballhof [employer] Work Phone: Start: 06-20-2024 Mean corpuscular hemoglobin concentration determination Miryam Kimballhof [employer] Work Phone: Start: 06-20-2024 Nucleated red blood cell count procedure Miryam Kimballhof [employer] Work Phone: Start: 06-20-2024 Platelet mean volume determination Ashle y Tannhof [employer] Work Phone: Start: 06-13-2024 Blood count smear mcrscp w/mnl difrntl wbc count Miryam Kimballhof [employer] Work Phone: Start: 06-13-2024 Mean corpuscular hemoglobin concentration determination Miryam Kimballhof [employer] Work Phone: Start: 06-13-2024 Nucleated red blood cell count procedure Miryam Kimballhof [employer] Work Phone: Start: 06-13-2024 Platelet mean volume determination Tatele y Tannhof [employer] Work Phone: Start: 06-13-2024 Serum inorganic phosphate measurement Miryam Tannhof [employer] Work Phone: Start: 06-13-2024 Total cholesterol:HDL ratio measurement Miryam Kimballhof [employer] Work Phone: Start: 06-13-2024 Vitamin D, 25-hydroxy measurement Miryam Kimballhof [employer] Work Phone: Start: 06-10-2024 Estimated creatinine clearance Miryam contehof [employer] Work Phone: Start: 06-10-2024 Serum inorganic phosphate measurement Miryam Tannhof [employer] Work Phone: Start: 06-07-2024 Mean corpuscular hemoglobin concentration determination Miryam Kimballhof [employer] Work Phone: Start: 06-07-2024 Platelet mean volume determination Ashle y Tannhof [employer] Work Phone: Start: 06-06-2024 Plain x-ray of wrist Miryam Kimballhof [employer] Work Phone: Start: 05-30-2024 Measurement of renal function Miryam castellonof [employer] Work Phone: Start: 05-27-2024 Blood count smear mcrscp w/mnl difrntl wbc count Miryam Orozco [employer] Work Phone: Start: 05-27-2024 Nucleated red blood cell count procedure Miryam Orozco [employer] Work Phone: Start: 05-23-2024 Videoswallow Miryam Serra [employer] Work Phone: Start: 05-20-2024 Measurement of occult blood in stool specimen using immunoassay Miryam Orozco [employer] Work Phone: Start: 05-19-2024 Human leukocyte antigen B27 antigen phenotyping Miryam Serra [employer] Work Phone: Start: 05-19-2024 Total iron binding capacity measurement Miryam Serra [employer] Work Phone: Start: 05-19-2024 X-ray of thoracic spine, three views Miryam Orozco [employer] Work Phone: Start: 05-18-2024 Glucose measurement, blood Nicol Judge MD Work Phone: Start: 05-18-2024 Glucose measurement, blood Nicol Judge MD Work Phone: Start: 05-18-2024 Glucose measurement, blood Nicol Judge MD Work Phone: Start: 05-18-2024 Assay of magnesium Jono L Infantshan NAILER OPERATOR-ACCOUNTANT Work Phone: Start: 05-17-2024 Glucose measurement, blood [...] 05-17-2024 Assay of magnesium Jono Garrett Infantino NAILER OPERATOR-ACCOUNTANT Work Phone: Start: 05-17-2024 Glucose measurement, blood Nicol Judge MD Work Phone: Start: 05-16-2024 Glucose measurement, blood Nicol Judge MD Work Phone: Start: 05-16-2024 Glucose measurement, blood Nicol Judge MD Work Phone: Start: 05-16-2024 Glucose measurement, blood Nicol Judge MD Work Phone: Start: 05-16-2024 Assay of magnesium Jono Garrett Infantino NAILER OPERATOR-ACCOUNTANT Work Phone: Start: 05-15-2024 Glucose measurement, blood [...] 05-15-2024 Assay of magnesium Jono Garrett Infantino NAILER OPERATOR-ACCOUNTANT Work Phone: Start: 05-15-2024 Glucose measurement, blood Kevon crawford MD Work Phone: Start: 05-14-2024 Glucose measurement, blood Kevon crawford MD Work Phone: Start: 05-14-2024 Glucose measurement, blood Kevon Lolly crawford MD Work Phone: Start: 05-14-2024 Assay of magnesium Jono Garrett Infantino NAILER OPERATOR-ACCOUNTANT Work Phone: Start: 05-13-2024 Glucose measurement, blood [...] 05-13-2024 Assay of magnesium Jono Garrett Infantino NAILER OPERATOR-ACCOUNTANT Work Phone: Start: 05-13-2024 Glucose measurement, blood [...] Blood count complete automated Pratik Angel Ennis NAILER OPERATOR-ACCOUNTANT Work Phone: Start: 05-10-2024 Glucose measurement, blood Ronn lane MD Work Phone: Start: 05-09-2024 Assay of ferritin Vy Curry MD Work Phone: Start: 05-09-2024 Glucose measurement, blood Ronn lane MD Work Phone: Start: 05-09-2024 Dup-scan xtr veins unilateral/limited study Oralia Mary NAILER OPERATOR-ACCOUNTANT Work Phone: Start: 05-09-2024 GENERAL PROCEDURE Clare Adhikari MD Work Phone: Start: 05-09-2024 Culture bacterial blood aerobic w/id isolates Karrie Sims NAILER OPERATOR-ACCOUNTANT Work Phone: Start: 05-09-2024 Glucose measurement, blood Ronn lane MD Work Phone: Start: 05-09-2024 Blood gases any combination ph pco2 po2 co2 hco3 Karrie Sims NAILER OPERATOR-ACCOUNTANT Work Phone: Start: 05-09-2024 End: 05-09-2024 Assay of magnesium Jono Bhardwaj NAILER OPERATOR-ACCOUNTANT Work Phone: Start: 05-09-2024 Mri spinal canal cervical w/o & w/contr matrl Nelida Brock MD Work Phone: Start: 05-08-2024 Glucose measurement, blood Pratik barron MD Work Phone: Start: 05-08-2024 Glucose measurement, blood Pratik barron MD Work Phone: Start: 05-08-2024 Inf agent det nucleic acid clostridium amp probe Karrie Sims NAILER OPERATOR-ACCOUNTANT Work Phone: Start: 05-08-2024 EXTRA MICRO Qijaswant Sims NAILER OPERATOR-ACCOUNTANT Work Phone: Start: 05-08-2024 URINALYSIS REFLEX TO CULTURE Qijaswant Sims A PRN-ACCOUNTANT Work Phone: Start: 05-08-2024 Urnls dip stick/tablet reagent auto microscopy Qijaswant Sims NAILER OPERATOR-ACCOUNTANT Work Phone: Start: 05-08-2024 Retired procedure Pratik Young MD Work Phone: Start: 05-08-2024 Blood gases any combination ph pco2 po2 co2 hco3 Qijaswant Sims NAILER OPERATOR-ACCOUNTANT Work Phone: Start: 05-08-2024 Potassium serum plasma/whole blood Milton Ennis NAILER OPERATOR-ACCOUNTANT Work Phone: Start: 05-08-2024 Glucose measurement, blood Pratik barron MD Work Phone: Start: 05-08-2024 Radiologic exam chest single view Karrie Sims NAILER OPERATOR-ACCOUNTANT Work Phone: Start: 05-08-2024 Smr prim src gram/giemsa stain bct fungi/cell Qijaswant Sims NAILER OPERATOR-ACCOUNTANT Work Phone: Start: 05-08-2024 Glucose measurement, blood Pratik barron MD Work Phone: Start: 05-08-2024 Assay of phosphorus inorganic Pratik Ennis NAILER OPERATOR-ACCOUNTANT Work Phone: Start: 05-08-2024 Ecg routine ecg w/least 12 lds trcg only w/o i&r Pratik Ennis NAILER OPERATOR-ACCOUNTANT Work Phone: Start: 05-08-2024 Assay of magnesium Jono Bhardwaj NAILER OPERATOR-ACCOUNTANT Work Phone: Start: 05-08-2024 Glucose measurement, blood Pratik barron MD Work Phone: Start: 05-07-2024 Assay of phosphorus inorganic Jono Bhardwaj NAILER OPERATOR-ACCOUNTANT Work Phone: Start: 05-07-2024 Glucose measurement, blood Pratik barron MD Work Phone: Start: 05-07-2024 Assay of magnesium Karrie Sims NAILER OPERATOR-ACCOUNTANT Work Phone: Start: 05-07-2024 Glucose measurement, blood Pratik barron MD Work Phone: Start: 05-07-2024 Blood count hematocrit Karrie Sims NAILER OPERATOR-CN P Work Phone: Start: 05-07-2024 CONTINUOUS CARDIAC MONITORING STRIP Other Other Start: 05-07-2024 Radiologic exam chest single view Karrie Sims NAILER OPERATOR-ACCOUNTANT Work Phone: Start: 05-07-2024 End: 05-07-2024 Transfusion of packed red blood cells Karrie Sims NAILER OPERATOR-ACCOUNTANT Work Phone: Start: 05-07-2024 Blood count complete automated Karrie Sims NAILER OPERATOR-ACCOUNTANT Work Phone: Start: 05-07-2024 Glucose measurement, blood [...] trcg only w/o i&r Pratik Angel Yessy NAILER OPERATOR-ACCOUNTANT Work Phone: Start: 05-07-2024 End: 05-07-2024 Transfusion of packed red blood cells Harish Parry MD Work Phone: Start: 05-07-2024 Blood count complete automated Jono Bhardwaj NAILER OPERATOR-ACCOUNTANT Work Phone: Start: 05-07-2024 Glucose measurement, blood Pratik barron MD Work Phone: Start: 05-06-2024 Mri brain brain stem w/o w/contrast material Danielle OCHOA Work Phone: Start: 05-06-2024 Ecg routine ecg w/least 12 lds trcg only w/o i&r Pratik Ennis NAILER OPERATOR-ACCOUNTANT Work Phone: Start: 05-06-2024 Heparin assay Karrie Sims NAILER OPERATOR-ACCOUNTANT Work Phone: Start: 05-06-2024 Glucose measurement, blood Pratik barron MD Work Phone: Start: 05-06-2024 Radiologic examination pelvis 1/2 views Danielle HODGSON Work Phone: Start: 05-06-2024 Creatinine blood Bretthi Sims NAILER OPERATOR-ACCOUNTANT Work Phone: Start: 05-06-2024 Glucose measurement, blood Pratik barron MD Work Phone: Start: 05-06-2024 Eeg extended monitoring 61-119 minutes Paulino Whitehead MD Work Phone: Start: 05-06-2024 Fibrinogen activity Qizhi Sims NAILER OPERATOR-ACCOUNTANT Work Phone: Start: 05-06-2024 Glucose measurement, blood Pratik barron MD Work Phone: Start: 05-06-2024 EXTRA LAVENDER TOP Pratik Young MD Work Phone: Start: 05-06-2024 EXTRA TUBES Pratik Young MD Work Phone: Start: 05-06-2024 End: 05-06-2024 Assay of magnesium Pratik Ortiz Ennis NAILER OPERATOR-ACCOUNTANT Work Phone: Start: 05-05-2024 Glucose measurement, blood Pratik barron MD Work Phone: Start: 05-05-2024 Hemodialysis Josefina Cary MD Work Phone: Start: 05-05-2024 PROCEDURE - LUMBAR PUNCTURE Oralia Aguayo Osmin boss NAILER OPERATOR-ACCOUNTANT Work Phone: Start: 05-05-2024 Glucose measurement, blood Pratik barron MD Work Phone: Start: 05-05-2024 Radiologic exam chest single view Ping Mary NAILER OPERATOR-ACCOUNTANT Work Phone: Start: 05-05-2024 End: 05-05-2024 Cell count misc body fluids w/differential count Oralia Mary NAILER OPERATOR-ACCOUNTANT Work Phone: Start: 05-05-2024 Cytp concentration smears & interpretation Oralia Mary NAILER OPERATOR-ACCOUNTANT Work Phone: Start: 05-05-2024 Concentration infectious agents Oralia Mary NAILER OPERATOR-ACCOUNTANT Work Phone: Start: 05-05-2024 Glucose body fluid other than blood Oralia Mary NAILER OPERATOR-ACCOUNTANT Work Phone: Start: 05-05-2024 Calcium ionized Oralia Mary NAILER OPERATOR-ACCOUNTANT Work Phone: Start: 05-05-2024 CHRONIC HEPATITIS PANEL(DIALYSIS, ESRD, JOSE) Josefina Cary MD Work Phone: Start: 05-05-2024 Hepatitis b surf antibody hbsab Josefina Cary MD Work Phone: Start: 05-05-2024 End: 05-05-2024 Iaad ia hepatitis b surface antigen Josefina Cary MD Work Phone: Start: 05-05-2024 Glucose measurement, blood Pratik barron MD Work Phone: Start: 05-05-2024 RT COMMUNICATION ORDER Oralia alejandra NAILER OPERATOR-ACCOUNTANT Work Phone: Start: 05-05-2024 End: 05-05-2024 Smr prim src gram/giemsa stain bct fungi/cell Oralia Mary NAILER OPERATOR-ACCOUNTANT Work Phone: Start: 05-05-2024 Calcium ionized Oralia Mary NAILER OPERATOR-ACCOUNTANT Work Phone: Start: 05-05-2024 Blood gases any combination ph pco2 po2 co2 hco3 Kindra Gannon MD Work Phone: Start: 05-05-2024 Ecg routine ecg w/least 12 lds trcg only w/o i&r Pratik Ennis NAILER OPERATOR-ACCOUNTANT Work Phone: Start: 05-05-2024 Ct head/brain w/o [...] Radiologic exam chest single view Arik Ennis NAILER OPERATOR-ACCOUNTANT Work Phone: Start: 05-04-2024 Radiologic exam abdomen 1 view Pratik Ennis NAILER OPERATOR-ACCOUNTANT Work Phone: Start: 05-04-2024 Antibody screen NICOL JUDGE Comment on above: Performed By: #### MGO, CHM7, IPB, CKB, TRIG, LDO #### [facility] (DEFAULT) [address] [place] [address] Start: 05-04-2024 Assay of ammonia Pratik Ennis NAILER OPERATOR-ACCOUNTANT Work Phone: Start: 05-04-2024 Blood gases any combination ph pco2 po2 co2 hco3 Pratik Ennis NAILER OPERATOR-ACCOUNTANT Work Phone: Start: 05-04-2024 RAPHAEL AURIS SCREEN BY PCR Pratik chan NAILER OPERATOR-ACCOUNTANT Work Phone: Start: 05-04-2024 CBC AND ELECTRONIC DIFF Pratik Ennis NAILER OPERATOR-ACCOUNTANT Work Phone: Start: 05-04-2024 Complete blood count with white cell differential, automated Pratik Ennis NAILER OPERATOR-ACCOUNTANT Work Phone: Start: 05-04-2024 Hepatic function panel Pratik Ennis NAILER OPERATOR-ACCOUNTANT Work Phone: Start: 05-04-2024 Iadna respiratry probe & rev trnscr 3-5 targets Pratik Ennis NAILER OPERATOR-ACCOUNTANT Work Phone: Start: 05-04-2024 MANUAL DIFF Pratik Ennis NAILER OPERATOR-ACCOUNTANT Work Phone: Start: 05-04-2024 PREPARE TO TRANSFUSE RED BLOOD CELLS Harish Parry MD Work Phone: Start: 05-04-2024 Glucose measurement, blood Pratik Angel barron MD Work Phone: Start: 05-03-2024 Complete ultrasound of kidneys and bladder Miryam Orozco ORTHODONTIC BAND MAKER-C Work Phone: Start: 05-02-2024 CT of head without contrast Miryam Driscoll ORTHODONTIC BAND MAKER-C Work Phone: Start: 05-02-2024 Plain chest X-ray Miryam Orozco ORTHODONTIC BAND MAKER-C Work Phone: Start: 05-01-2024 Blood culture Miryam Orozco ORTHODONTIC BAND MAKER-C Work Phone: Start: 05-01-2024 Clostridium difficile detection Miryam brantley ORTHODONTIC BAND MAKER-C Work Phone: Start: 05-01-2024 Gram stain microscopy Miryam Serra ORTHODONTIC BAND MAKER- C Work Phone: Start: 05-01-2024 Legionella pneumophila antigen assay Miryam Serra ORTHODONTIC BAND MAKER-C Work Phone: Start: 05-01-2024 Nucleic acid assay Miryam Orozco ORTHODONTIC BAND MAKER-C Work Phone: Start: 05-01-2024 Respiratory microbial culture Miryam castellon ORTHODONTIC BAND MAKER-C Work Phone: Start: 05-01-2024 Streptococcus pneumoniae antigen assay Miryam Serra ORTHODONTIC BAND MAKER-C Work Phone: Start: 05-01-2024 Urine culture Miryam Serra ORTHODONTIC BAND MAKER-C Work Phone: Start: 05-01-2024 Miryam Serra ORTHODONTIC BAND MAKER-C Work Phone: Start: 05-01-2024 End: 05-01-2024 Plain chest X-ray Miryam Orozco ORTHODONTIC BAND MAKER-C Work Phone: Start: 01-28-2024 Stir COVID-19 VACCINE AGE 12+ YR (COMIRNATY) Miryam Orozco APRN.ACCOUNTANT Work Phone: Start: 07-22-2023 Adult depression screening [...] canal thoracic w/o contrast matrl Avis Marrufo APRN.ACCOUNTANT Work Phone: Start: 01-08-2022 End: 01-08-2022 Njx dx/ther agt pvrt facet jt lmbr/sac 1 level Roque Delgado MD Work Phone: Start: 01-03-2022 Us abdominal real time w/image documentation Miryam Orozco APRN.ACCOUNTANT Work Phone: Start: 12-25-2021 End: 12-25-2021 Njx dx/ther agt pvrt facet jt lmbr/sac 1 level Roque Delgado MD Work Phone: Start: 09-20-2021 Radex spine lumbosacral minimum 4 views Avis Marrufo APRN.ACCOUNTANT Work Phone: Start: 09-19-2021 Adult depression screening assessment Avis Marrufo APRN.ACCOUNTANT Work Phone: Start: 07-25-2021 Ct abdomen & pelvis w/o contrast material Lizy Capone MD Work Phone: Start: 07-16-2021 Radex ribs uni w/posteroant ch minimum 3 views Lizy Capone MD Work Phone: Start: 11-25-2018 Adult depression screening assessment Lizy Capone MD Work Phone: Bacteria identified in Urine by Culture Dr. Lizy Capone Work Phone: H/O: surgery Miryam Russell ORTHODONTIC BAND MAKER-C Work Phone: H/O: surgery Dr. Gonzalo eastman MD H/O: surgery Dr. Gonzalo eastman MD H/O: surgery Dr. Gonzalo eastman MD Urine culture Dr. Lizy white Work Phone: Urine culture Dr. Lizy white Work Phone: Urine culture Dr. Lizy white Work Phone: Plan of Treatment Date Care Activity Detail Author Start: 09-16-2027 Diabetes Screening Diabetes Screening [facility] Start: 09-01-2027 Tetanus vaccination [facility] Start: 09-01-2027 Urine microalbumin profile [facility] Start: 08-23-2027 Diabetes Screening Diabetes Screening [facility] Start: 05-17-2027 Diabetes Screening Diabetes Screening [facility] Start: 12-13-2026 Diabetes Screening Diabetes Screening [facility] Start: 07-15-2026 Diabetes Screening Diabetes Screening [facility] Start: 01-15-2026 Diabetes Screening Diabetes Screening [facility] Start: 12-22-2025 Diabetes Screening Diabetes Screening [facility] Start: 09-26-2025 DIABETES SCREEN DIABETES SCREEN [facility] Start: 09-26-2025 Diabetes Screening Diabetes Screening [facility] Start: 05-17-2025 Finding of potassium level (finding) [facility] Start: 05-05-2025 Thyroid stimulating hormone measurement [facility] Start: 01-06-2025 DIABETES SCREEN DIABETES SCREEN [facility] Start: 12-05-2024 Influenza vaccination Influenza Vaccine (#1) [facility] Start: 11-25-2024 End: 11-25-2024 Patient encounter procedure 11/25/2024 2:20 PM EDT Office Visit [facility] [place] [address] [facility] [place] [address] Lizy Capone MD [address] [place] [address] 1 month follow up [facility] Comment on above: 1 month follow up Start: 10-26-2024 End: 10-26-2024 [facility] Start: 10-24-2024 End: 10-24-2024 Patient encounter procedure [facility] Comment on above: [address] [facility] Start: 10-22-2024 End: 01-21-2025 CBC panel - Blood by Automated count COMPLETE BLOOD COUNT Lab Routine BENIGN HYPERTENSION(aka HTN) Anemia in chronic kidney disease, unspecified CKD stage CKD (chronic kidney disease) stage 4, GFR 15-29 ml/min (HCC) Expected: 10/22/2024 (Approximate), Expires: 01/21/2025 [facility] Comment on above: Expected: 10/22/2024 (Approximate), Expi res: 01/21/2025 Start: 10-22-2024 End: 01-21-2025 Comprehensive metabolic 2000 panel - Serum or Plasma COMPREHENSIVE METABOLIC PANEL Lab Routine BENIGN HYPERTENSION(aka HTN) CKD (chronic kidney disease) stage 4, GFR 15-29 ml/min (HCC) Expected: 10/22/2024 (Approximate), Expires: 01/21/2025 [facility] Work Phone: Comment on above: Expected: 10/22/2024 (Approximate), Expi res: 01/21/2025 Start: 10-20-2024 Patient discharge [facility] Start: 10-19-2024 Development of care plan [facility] Start: 10-19-2024 Developing a treatment plan [facility] Start: 10-17-2024 Referral to service [facility] Start: 10-17-2024 Patient discharge [facility] Start: 10-17-2024 [facility] Start: 10-14-2024 Unlisted procedure small intestine [facility] Start: 10-13-2024 [facility] Start: 10-12-2024 Measurement of occult blood in stool specimen using immunoassay [facility] Start: 10-11-2024 Referral to manager logistic [facility] Start: 10-11-2024 Application of elastic bandage [facility] Start: 10-11-2024 Consultation for treatment [facility] Start: 10-11-2024 [facility] Start: 10-10-2024 [facility] Start: 10-10-2024 Elevation of affected extremity [facility] Start: 10-08-2024 Seizure precautions [facility] Start: 10-06-2024 Speech therapy management [facility] Start: 10-06-2024 Verification routine [facility] Start: 10-05-2024 [facility] Start: 10-05-2024 Development of care plan [facility] Start: 10-05-2024 Speech therapy assessment [facility] Start: 10-05-2024 Developing a treatment plan [facility] Start: 10-04-2024 End: 10-05-2024 Patient referral to dietitian [facility] Start: 10-04-2024 Following clinical pathway protocol [facility] Start: 10-04-2024 Wound care [facility] Start: 10-04-2024 Admission procedure [facility] Start: 10-04-2024 Introduction of urinary catheter [facility] Start: 10-04-2024 Measuring intake and output [facility] Start: 10-04-2024 Referral to occupational therapist [facility] Start: 10-04-2024 Referral to service [facility] Start: 10-04-2024 Vital signs measurements [facility] Start: 10-04-2024 [facility] Start: 10-04-2024 Patient discharge [facility] Start: 10-03-2024 Consultation for treatment [facility] Start: 10-03-2024 [facility] Start: 10-02-2024 [facility] Start: 10-01-2024 [facility] Start: 09-29-2024 Application of intermittent pneumatic compression device [facility] Start: 09-29-2024 [facility] Start: 09-28-2024 Following clinical pathway protocol [facility] Start: 09-28-2024 Assessment of risk of venous thromboembolism [facility] Start: 09-28-2024 Fall prevention [facility] Start: 09-28-2024 Inhalation therapy procedure [facility] Start: 09-28-2024 Insertion of catheter into peripheral vein [facility] Start: 09-28-2024 Introduction of urinary catheter [facility] Start: 09-28-2024 Measuring intake and output [facility] Start: 09-28-2024 Providing care according to standard [facility] Start: 09-28-2024 Provision of activity privileges [facility] Start: 09-28-2024 Referral to manager logistic [facility] Start: 09-28-2024 Referral to occupational therapist [facility] Start: 09-28-2024 Referral to service [facility] Start: 09-28-2024 Wound care [facility] Start: 09-28-2024 [facility] Start: 09-28-2024 Verification routine [facility] Start: 09-28-2024 Admission procedure [facility] Start: 09-28-2024 Hospital admission, emergency, from emergency room, medical nature [facility] Start: 09-28-2024 [facility] Start: 09-28-2024 [facility] Start: 09-28-2024 End: 09-28-2024 [facility] Start: 09-28-2024 Patient referral to dietitian [facility] Start: 09-28-2024 [facility] Start: 09-22-2024 End: 09-22-2024 Patient encounter procedure 09/22/2024 2:20 PM EDT Office Visit [facility] [address] [place] [address] Lizy Capone MD [address] [place] [address] 1 mo f/u [facility] Comment on above: 1 mo f/u Start: 09-15-2024 End: 12-15-2024 Natriuretic peptide.B prohormone N-Terminal [Mass/volume] in Serum or Plasma [facility] Work Phone: Comment on above: Expected: 09/15/2024, Expires: Start: 09-06-2024 Patient discharge [facility] Start: 08-22-2024 End: 08-22-2024 Patient encounter procedure 08/22/2024 1:20 PM EDT Office Visit [facility] [address] [place] [address] Lizy Capone MD [address] [place] [address] 6 month follow up [facility] Comment on above: 6 month follow up Start: 08-05-2024 End: 08-05-2024 Patient encounter procedure 08/05/2024 10:00 AM EDT Office Visit [facility] [address] [place] [address] Miryam Orozco APRN.ACCOUNTANT [address] [place] [address] 6 month follow up [facility] Comment on above: 6 month follow up Start: 07-29-2024 [facility] Start: 07-28-2024 End: 10-27-2024 Comprehensive metabolic 2000 panel - Serum or Plasma COMPREHENSIVE METABOLIC PANEL Lab Routine BENIGN HYPERTENSION(aka HTN) Expected: 07/28/2024, Expires: 10/27/2024 [facility] Work Phone: Comment on above: Expected: 07/28/2024, Expires: Start: 07-28-2024 Covid-19 Vaccine ( season) Covid-19 Vaccine () [facility] Start: 07-28-2024 End: 10-27-2024 Lipid 1996 panel - Serum or Plasma LIPID PANEL BASIC Lab Routine Hyperlipidemia LDL goal <100 Expected: 07/28/2024, Expires: 10/27/2024 [facility] Comment on above: Expected: 07/28/2024, Expires: Start: 07-28-2024 End: 10-27-2024 Thyrotropin [Units/volume] in Serum or Plasma THYROID STIMULATING HORMONE Lab Routine Hypothyroidism, acquired Expected: 07/28/2024, Expires: 10/27/2024 [facility] Comment on above: Expected: 07/28/2024, Expires: Start: 07-28-2024 End: 10-27-2024 Thyroxine (T4) free [Mass/volume] in Serum or Plasma T4 FREE/FREE THYROXINE Lab Routine Hypothyroidism, acquired Expected: 07/28/2024, Expires: 10/27/2024 [facility] Comment on above: Expected: 07/28/2024, Expires: Start: 07-21-2024 Anxiety Screening Anxiety Screening [facility] Start: 07-21-2024 Covid-19 Vaccine () Covid-19 Vaccine () [facility] Comment on above: Postponed from 12/05/2022 (Declined at t his time) Start: 07-21-2024 Depression Screening Depression Screening [facility] Start: 07-21-2024 Shingrix Vaccine (2 of 3) Shingrix Vaccine (2 of 3) [facility] Comment on above: Postponed from 07/12/2009 (Declined at t his time) Start: 07-16-2024 DIABETES SCREEN DIABETES SCREEN [facility] Start: 06-10-2024 Patient discharge [facility] Start: 06-10-2024 Referral to manager logistic [facility] Start: 06-09-2024 Catheterization of vein [facility] Start: 06-08-2024 Application of elastic bandage [facility] Start: 06-08-2024 [facility] Start: 06-06-2024 Application of ice collar, cap or bag [facility] Start: 05-27-2024 [facility] Start: 05-20-2024 Following clinical pathway protocol [facility] Start: 05-20-2024 Administration of blood product [facility] Start: 05-20-2024 Administration of blood product [facility] Start: 05-18-2024 Seizure precautions [facility] Start: 05-18-2024 Admission procedure [facility] Start: 05-18-2024 Measuring intake and output [facility] Start: 05-18-2024 Patient referral to dietitian [facility] Start: 05-18-2024 Referral to service [facility] Start: 05-18-2024 Vital signs measurements [facility] Start: 05-18-2024 [facility] Start: 05-18-2024 Referral to occupational therapist [facility] Start: 05-18-2024 Speech therapy assessment [facility] Start: 05-08-2024 Complete blood count Hemoglobin/Hematocrit [facility] Start: 05-08-2024 Creatinine measurement Serum Creatinine [facility] Start: 05-04-2024 Patient discharge [facility] Start: 05-04-2024 Care of hemodialysis equipment [facility] Start: 05-04-2024 Hemodialysis care [facility] Start: 05-04-2024 [facility] Start: 05-04-2024 [facility] Start: 05-04-2024 Administration of blood product [facility] Start: 05-03-2024 End: 05-04-2024 [facility] Start: 05-02-2024 [facility] Start: 05-01-2024 Following clinical pathway protocol [facility] Start: 05-01-2024 Assessment of risk of venous thromboembolism [facility] Start: 05-01-2024 Catheterization of vein [facility] Start: 05-01-2024 Consultation [facility] Start: 05-01-2024 Continuous pulse oximetry [facility] Start: 05-01-2024 Inhalation therapy procedure [facility] Start: 05-01-2024 Insertion of catheter into peripheral vein [facility] Start: 05-01-2024 Measuring intake and output [facility] Start: 05-01-2024 Notification of physician [facility] Start: 05-01-2024 Providing care according to standard [facility] Start: 05-01-2024 Referral to manager logistic [facility] Start: 05-01-2024 Referral to occupational therapist [facility] Start: 05-01-2024 Referral to service [facility] Start: 05-01-2024 Vital signs measurements [facility] Start: 05-01-2024 End: 05-01-2024 [facility] Start: 05-01-2024 Airway suction technique [facility] Start: 05-01-2024 Admission procedure [facility] Start: 05-01-2024 Patient referral to dietitian [facility] Start: 05-01-2024 [facility] Start: 04-15-2024 Annual PCP Team Chronic Disease Visit Annual PCP Team Chronic Disease Visit [facility] Start: 04-06-2024 Advance Directive Discussion Advance Directive Discussion [facility] Start: 03-24-2024 End: 03-24-2024 Patient encounter procedure 03/24/2024 8:45 AM EST Office Visit [facility] [address] [place] [address] Weston Lowe APRN.ACCOUNTANT [address] [place] [address] 3 month refill [facility] Comment on above: 3 month refill Start: 03-16-2024 End: 03-16-2024 Patient encounter procedure 03/16/2024 11:20 AM EST Office Visit [facility] [place] [address] [place] [address] Miryam Orozco APRN.ACCOUNTANT [address] [place] [address] Hosp Follow up/ discharge 03/02/24 [facility] Comment on above: Hosp Follow up/ discharge 03/02/24 Start: 02-11-2024 End: 02-11-2024 Patient encounter procedure 02/11/2024 9:20 AM EST Office Visit [facility] [place] [address] [place] [address] Miryam Orozco APRN.ACCOUNTANT [address] [place] [address] 3 month follow up [facility] Comment on above: 3 month follow up Start: 02-01-2024 End: 02-01-2024 Patient encounter procedure 02/01/2024 8:45 AM EDT Office Visit Orthopa[facility]ics [address] [place] [address] Grzegorz Becerril MD [address] [place] [address] 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, M19.012] Orthopa[facility] Comment on above: 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, M19.012] Start: 01-30-2024 End: 04-30-2024 Thyrotropin [Units/volume] in Serum or Plasma THYROID STIMULATING HORMONE Lab Routine Hypothyroidism, acquired Expected: 01/30/2024, Expires: 04/30/2024 [facility] Work Phone: Comment on above: Expected: 01/30/2024, Expires: Start: 01-30-2024 End: 04-30-2024 Thyroxine (T4) free [Mass/volume] in Serum or Plasma T4 FREE/FREE THYROXINE Lab Routine Hypothyroidism, acquired Expected: 01/30/2024, Expires: 04/30/2024 [facility] Comment on above: Expected: 01/30/2024, Expires: Start: 01-28-2024 End: 01-28-2024 Patient encounter procedure 01/28/2024 9:00 AM EDT Office Visit [facility] [address] [place] [address] Miryam Orozco APRN.ACCOUNTANT [address] [place] [address] 6 month follow up [facility] Comment on above: 6 month follow up Start: 01-21-2024 End: 04-21-2024 Comprehensive metabolic 2000 panel - Serum or Plasma COMPREHENSIVE METABOLIC PANEL Lab Routine CKD (chronic kidney disease) stage 4, GFR 15-29 ml/min ([facility]) Expected: 01/21/2024, Expires: 04/21/2024 [facility] Work Phone: Comment on above: Expected: 01/21/2024, Expires: Start: 01-21-2024 End: 04-21-2024 Lipid 1996 panel - Serum or Plasma LIPID PANEL BASIC Lab Routine Hyperlipidemia LDL goal <100 Expected: 01/21/2024, Expires: 04/21/2024 [facility] Work Phone: Comment on above: Expected: 01/21/2024, Expires: 5 Start: 01-21-2024 End: 04-21-2024 Thyrotropin [Units/volume] in Serum or Plasma THYROID STIMULATING HORMONE Lab Routine Hypothyroidism, acquired Expected: 01/21/2024, Expires: 04/21/2024 [facility] Work Phone: Comment on above: Expected: 01/21/2024, Expires: Start: 01-16-2024 Serum Creatinine Serum Creatinine [facility] Start: 12-23-2023 Annual PCP Team Chronic Disease Visit Annual PCP Team Chronic Disease Visit [facility] Start: 12-23-2023 BP Controlled (<130/80) BP Controlled (<130/80) [facility] Start: 12-23-2023 Serum Creatinine Serum Creatinine [facility] Start: 12-17-2023 End: 12-17-2023 Follow-up encounter 12/17/2023 9:30 AM EDT [facility] [place] [address] [place], [place] [address] Weston Lowe APRN.ACCOUNTANT [address] [place], [place] [address] RFA follow up [facility] Comment on above: RFA follow up Start: 12-17-2023 End: 12-17-2023 Patient encounter procedure 12/17/2023 8:45 AM EDT [facility] [address] [place] [id number] Roque Delgado MD [address] [facility] [address] [place], [place] [address] RFA follow up [facility] Comment on above: RFA follow up Start: 12-06-2023 Covid-19 Vaccine ( season) Covid-19 Vaccine ( season) [facility] Start: 12-06-2023 Covid-19 Vaccine ( season) Covid-19 Vaccine ( season) [facility] Start: 12-06-2023 Influenza vaccination Influenza Vaccine [facility] Start: 12-04-2023 End: 12-04-2023 Patient encounter procedure 12/04/2023 9:00 AM EDT Office Visit OB/Gynecology [address] [place], [place] [address] Starr Solano MD [address] [place], [place] [address] Consult IUD removal [facility] Comment on above: Consult IUD removal Start: 11-16-2023 End: 11-16-2023 ambulatory [facility] [place] Comment on above: Right RFA - suprascapular nerve w fluoro ; 81mg asp MEDICARE AUTH [employer] [facility] R Right RFA - suprascapular nerve w fluoro; 81mg asp Start: 10-21-2023 End: 01-20-2024 Comprehensive metabolic 2000 panel - Serum or Plasma COMPREHENSIVE METABOLIC PANEL Lab Routine Chronic constipation Leg swelling CKD (chronic kidney disease) stage 4, GFR 15-29 ml/min ([facility]) Expected: 10/21/2023, Expires: 01/20/2024 [facility] Work Phone: Comment on above: Expected: 10/21/2023, Expires: Start: 09-27-2023 ANNUAL PCP TEAM CHRONIC DISEASE VISIT ANNUAL PCP TEAM CHRONIC DISEASE VISIT [facility] Start: 09-27-2023 SERUM CREATININE SERUM CREATININE [facility] Start: 06-27-2023 ANNUAL PCP TEAM CHRONIC DISEASE VISIT ANNUAL PCP TEAM CHRONIC DISEASE VISIT [facility] Start: 06-27-2023 BP CONTROLLED (<130/80) BP CONTROLLED (<130/80) [facility] Start: 06-11-2023 Blood chemistry [facility] Start: 06-10-2023 Blood chemistry [facility] Start: 06-09-2023 Patient discharge [facility] Start: 06-08-2023 Thyroid stimulating hormone measurement [facility] Start: 06-08-2023 [facility] Start: 06-08-2023 Following clinical pathway protocol [facility] Start: 06-08-2023 Ambulation without limitation [facility] Start: 06-08-2023 Assessment of risk of venous thromboembolism [facility] Start: 06-08-2023 Incentive spirometry [facility] Start: 06-08-2023 Inhalation therapy procedure [facility] Start: 06-08-2023 Insertion of catheter into peripheral vein [facility] Start: 06-08-2023 Measuring intake and output [facility] Start: 06-08-2023 Oxygen therapy [facility] Start: 06-08-2023 Providing care according to standard [facility] Start: 06-08-2023 Referral to service [facility] Start: 06-08-2023 [facility] Start: 06-08-2023 Verification routine [facility] Start: 06-08-2023 Admission procedure [facility] Start: 05-13-2023 BP CONTROLLED (<130/80) BP CONTROLLED (<130/80) [facility] Start: 04-21-2023 ANNUAL PCP TEAM CHRONIC DISEASE VISIT ANNUAL PCP TEAM CHRONIC DISEASE VISIT [facility] Start: 04-21-2023 BP CONTROLLED (<130/80) BP CONTROLLED (<130/80) [facility] Start: 04-06-2023 Behavioral Health Screening Behavioral Health Screening [facility] Start: 04-06-2023 Depression Assessment Depression Assessment [facility] Start: 01-23-2023 End: 03-25-2023 Comprehensive metabolic 2000 panel - Serum or Plasma COMP METABOLIC PANEL Lab Routine Decreased glomerular filtration rate (GFR) Expected: 01/23/2023, Expires: 03/25/2023 [facility] Work Phone: Comment on above: Expected: 01/23/2023, Expires: Start: 01-06-2023 SERUM CREATININE SERUM CREATININE [facility] Start: 01-02-2023 ANNUAL PCP TEAM CHRONIC DISEASE VISIT ANNUAL PCP TEAM CHRONIC DISEASE VISIT [facility] Start: 12-22-2022 End: 02-21-2023 Comprehensive metabolic 2000 panel - Serum or Plasma [facility] Work Phone: Comment on above: Expected: 12/22/2022, Expires: 3 Start: 12-22-2022 End: 02-21-2023 Thyrotropin [Units/volume] in Serum or Plasma [facility] Work Phone: Comment on above: Expected: 12/22/2022, Expires: 3 Start: 12-22-2022 End: 02-21-2023 Thyroxine (T4) free [Mass/volume] in Serum or Plasma [facility] Work Phone: Comment on above: Expected: 12/22/2022, Expires: 3 Start: 12-05-2022 Covid-19 Vaccine () Covid-19 Vaccine () [facility] Start: 12-05-2022 Covid-19 Vaccine () Covid-19 Vaccine () [facility] Start: 12-05-2022 Influenza vaccination [facility] Start: 11-22-2022 BP CONTROLLED (<130/80) BP CONTROLLED (<130/80) [facility] Start: 09-19-2022 Adult depression screening assessment DEPRESSION SCREENING [facility] Start: 07-16-2022 ANNUAL PCP TEAM CHRONIC DISEASE VISIT ANNUAL PCP TEAM CHRONIC DISEASE VISIT [facility] Start: 07-16-2022 BP CONTROLLED (<130/80) BP CONTROLLED (<130/80) [facility] Start: 07-16-2022 HEMOGLOBIN/HEMATOCRIT HEMOGLOBIN/HEMATOCRIT [facility] Start: 07-16-2022 SERUM CREATININE SERUM CREATININE [facility] Start: 06-26-2022 End: 08-26-2022 Bacteria identified in Urine by Culture [facility] Work Phone: Comment on above: Expected: 06/26/2022, Expires: 3 Start: 06-26-2022 End: 08-26-2022 Urinalysis complete panel - Urine [facility] Work Phone: Comment on above: Expected: 06/26/2022, Expires: 3 Start: 04-28-2022 COVID-19 VACCINE (5 - Moderna series) COVID-19 VACCINE (5 - Moderna series) [facility] Start: 04-06-2022 ADVANCE DIRECTIVE DISCUSSION ADVANCE DIRECTIVE DISCUSSION [facility] Start: 04-06-2022 DEPRESSION ASSESSMENT DEPRESSION ASSESSMENT [facility] Start: 01-02-2022 End: 03-04-2022 Comprehensive metabolic 2000 panel - Serum or Plasma COMP METABOLIC PANEL Lab Routine Leg swelling Function kidney decreased Shortness of breath Expected: 01/02/2022, Expires: 03/04/2022 [facility] Work Phone: Comment on above: Expected: 01/02/2022, Expires: 2 Start: 01-02-2022 End: 03-04-2022 Natriuretic peptide.B prohormone N-Terminal [Mass/volume] in Serum or Plasma NT PRO BNP Lab Routine Leg swelling Shortness of breath Expected: 01/02/2022, Expires: 03/04/2022 [facility] Work Phone: Comment on above: Expected: 01/02/2022, Expires: 2 Start: 12-05-2021 Influenza vaccination INFLUENZA (#1) [facility] Start: 07-06-2021 COVID-19 VACCINE (4 - Booster for Moderna series) COVID-19 VACCINE (4 - Booster for Moderna series) [facility] Start: 05-02-2021 COVID-19 VACCINE (4 - Booster for Moderna series) COVID-19 VACCINE (4 - Booster for Moderna series) [facility] Start: 04-06-2021 ADVANCE DIRECTIVE DISCUSSION ADVANCE DIRECTIVE DISCUSSION [facility] Start: 04-06-2021 DEPRESSION ASSESSMENT DEPRESSION ASSESSMENT [facility] Start: 11-26-2019 Adult depression screening assessment DEPRESSION SCREENING [facility] Start: 11-24-2018 Screening for malignant neoplasm of breast [facility] Start: 2017 RSV Vaccine (1 - 1-dose 75+ series) RSV Vaccine (1 - 1-dose 75+ series) [facility] Start: 07-12-2009 SHINGRIX VACCINE (2 of 3) SHINGRIX VACCINE (2 of 3) [facility] Start: 07-12-2009 [facility] Start: 07-05-2008 Medicare Annual Wellness Visit Medicare Annual Wellness Visit [facility] Start: 2002 RSV Vaccine (1 - 1-dose 60+ series) RSV Vaccine (1 - 1-dose 60+ series) [facility] Start: 06-20-1987 Screening for malignant neoplasm of colon [facility] Start: 06-20-1963 Screening for malignant neoplasm of cervix [facility] Start: 1960 BP CONTROLLED (<130/80) BP CONTROLLED (<130/80) [facility] Start: 1942 Screening for osteoporosis [facility] Alanine aminotransfe rase [Enzymatic activity/volume] in Serum or Plasma [facility] Albumin [Mass/volume ] in Serum or Plasma [facility] Alkaline phosphatase [Enzymatic activity/volume] in Serum or Plasma [facility] Anion gap in Serum o r Plasma [facility] Anion gap in Serum o r Plasma [facility] Anion gap in Serum o r Plasma [facility] Anion gap in Serum o r Plasma [facility] Anion gap in Serum o r Plasma [facility] Anion gap measurement [facility] Anion gap measurement [facility] Anion gap measurement [facility] Arthrocentesis aspir &/inj major jt/bursa w/o us DRAIN/INJECT LARGE JOINT/BURSA Procedures Routine Primary osteoarthritis of both shoulders Ordered: 02/16/2023 [facility] Work Phone: Comment on above: Ordered: 02/16/2023 Arthrocentesis aspir &/inj major jt/bursa w/o us DRAIN/INJECT LARGE JOINT/BURSA Procedures Routine Primary osteoarthritis of both shoulders Ordered: 05/18/2023 [facility] Work Phone: Comment on above: Ordered: 05/18/2023 Aspartate aminotransferase [Enzymatic activity/volume] in Serum or Plasma [facility] Bilirubin, total measurement [facility] Blood chemistry [facility] BUN/Creatinine ratio [facility] BUN/Creatinine ratio [facility] BUN/Creatinine ratio [facility] BUN/Creatinine ratio [facility] BUN/Creatinine ratio [facility] BUN/Creatinine ratio [facility] BUN/Creatinine ratio [facility] BUN/Creatinine ratio [facility] Calcium [Mass/volume ] in Serum or Plasma [facility] Calcium [Mass/volume ] in Serum or Plasma [facility] Calcium [Mass/volume ] in Serum or Plasma [facility] Calcium [Mass/volume ] in Serum or Plasma [facility] Calcium [Mass/volume ] in Serum or Plasma [facility] Calcium [Mass/volume ] in Serum or Plasma [facility] Calcium [Mass/volume ] in Serum or Plasma [facility] Calcium [Mass/volume ] in Serum or Plasma [facility] Carbon dioxide, tota l [Moles/volume] in Central venous blood [facility] Carbon dioxide, tota l [Moles/volume] in Central venous blood [facility] Carbon dioxide, tota l [Moles/volume] in Central venous blood [facility] Carbon dioxide, tota l [Moles/volume] in Central venous blood [facility] Carbon dioxide, tota l [Moles/volume] in Central venous blood [facility] Carbon dioxide, tota l [Moles/volume] in Serum or Plasma [facility] Carbon dioxide, tota l [Moles/volume] in Serum or Plasma [facility] Carbon dioxide, tota l [Moles/volume] in Serum or Plasma [facility] Catheterization of l eft heart [facility] Chloride [Moles/volu me] in Serum or Plasma [facility] Chloride [Moles/volu me] in Serum or Plasma [facility] Chloride [Moles/volu me] in Serum or Plasma [facility] Clostridioides diffi cile toxin genes [Presence] in Stool by JEANA with probe detection C. DIFFICILE PCR Lab Routine Rectal bleeding 05/16/2022 8:40 AM EST [facility] Work Phone: Clostridioides diffi cile toxin genes [Presence] in Stool by JEANA with probe detection C. DIFFICILE PCR Lab Routine Change in stool Ordered: 06/26/2022 [facility] Work Phone: Comment on above: Ordered: 06/26/2022 End: 05-05-2024 CMV IGG & IGM, QUANT. [facility] Creatinine [Mass/vol ume] in Serum or Plasma [facility] Creatinine [Mass/vol ume] in Serum or Plasma [facility] Creatinine [Mass/vol ume] in Serum or Plasma [facility] Creatinine [Mass/vol ume] in Serum or Plasma [facility] Creatinine [Mass/vol ume] in Serum or Plasma [facility] Creatinine [Moles/vo lume] in Serum or Plasma [facility] Creatinine [Moles/vo lume] in Serum or Plasma [facility] Creatinine [Moles/vo lume] in Serum or Plasma [facility] End: 08-17-2022 Ct abdomen & pelvis w/o contrast material CT ABD/PEL WO IVCON Radiology Routine Left upper quadrant abdominal pain 1 Occurrences starting 07/18/2021 until 08/17/2022 [facility] Work Phone: Comment on above: 1 Occurrences starting 07/18/2021 until 08/17/2022 Dstrj neurolytic age nt other peripheral nerve NRV DESTR RFA, CHEM OTHER Procedures Routine Primary osteoarthritis of both shoulders Ordered: 07/15/2023 [facility] Work Phone: Comment on above: Ordered: 07/15/2023 Dstrj neurolytic age nt other peripheral nerve NRV DESTR RFA, CHEM OTHER Procedures Routine Primary osteoarthritis of both shoulders Ordered: 11/16/2023 [facility] Work Phone: Comment on above: Ordered: 11/16/2023 End: 05-05-2024 EBV VCA IGG AND IGM [facility] Erythrocyte mean corpuscular volume determination [facility] Erythrocyte mean corpuscular volume determination [facility] Erythrocyte mean corpuscular volume determination [facility] Erythrocyte mean corpuscular volume determination [facility] Erythrocyte mean corpuscular volume determination [facility] Erythrocyte mean corpuscular volume determination [facility] Erythrocyte mean corpuscular volume determination [facility] Erythrocyte mean corpuscular volume determination [facility] Glucose [Mass/volume ] in Serum or Plasma [facility] Glucose [Mass/volume ] in Serum or Plasma [facility] Glucose [Mass/volume ] in Serum or Plasma [facility] Glucose [Mass/volume ] in Serum or Plasma [facility] Glucose [Mass/volume ] in Serum or Plasma [facility] Glucose [Mass/volume ] in Serum or Plasma [facility] Glucose [Mass/volume ] in Serum or Plasma [facility] Glucose [Mass/volume ] in Serum or Plasma [facility] Hematocrit [Volume Fraction] of Blood [facility] Hematocrit [Volume Fraction] of Blood [facility] Hematocrit [Volume Fraction] of Blood [facility] Hematocrit [Volume Fraction] of Blood [facility] Hematocrit [Volume Fraction] of Blood [facility] Hematocrit [Volume Fraction] of Blood [facility] Hematocrit [Volume Fraction] of Blood [facility] Hematocrit [Volume Fraction] of Blood [facility] Hematocrit [Volume Fraction] of Blood [facility] Hemoglobin [Mass/vol ume] in Blood [facility] Hemoglobin [Mass/vol ume] in Blood [facility] Hemoglobin [Mass/vol ume] in Blood [facility] Hemoglobin [Mass/vol ume] in Blood [facility] Hemoglobin [Mass/vol ume] in Blood [facility] Hemoglobin [Mass/vol ume] in Blood [facility] Hemoglobin [Mass/vol ume] in Blood [facility] Hemoglobin [Mass/vol ume] in Blood [facility] Hemoglobin [Mass/vol ume] in Blood [facility] Leukocytes [#/volume ] in Blood [facility] Leukocytes [#/volume ] in Blood [facility] Leukocytes [#/volume ] in Blood [facility] Leukocytes [#/volume ] in Blood [facility] Leukocytes [#/volume ] in Blood [facility] Leukocytes [#/volume ] in Blood [facility] Leukocytes [#/volume ] in Blood [facility] Leukocytes [#/volume ] in Blood [facility] Magnesium [Mass/volu me] in Serum or Plasma [facility] Mean corpuscular hemoglobin concentration determination [facility] Mean corpuscular hemoglobin concentration determination [facility] Mean corpuscular hemoglobin concentration determination [facility] Mean corpuscular hemoglobin concentration determination [facility] Mean corpuscular hemoglobin concentration determination [facility] Mean corpuscular hemoglobin concentration determination [facility] Mean corpuscular hemoglobin concentration determination [facility] Mean corpuscular hemoglobin concentration determination [facility] Mean corpuscular hemoglobin determination [facility] Mean corpuscular hemoglobin determination [facility] Mean corpuscular hemoglobin determination [facility] Mean corpuscular hemoglobin determination [facility] Mean corpuscular hemoglobin determination [facility] Mean corpuscular hemoglobin determination [facility] Mean corpuscular hemoglobin determination [facility] Mean corpuscular hemoglobin determination [facility] Measurement of renal function [facility] Measurement of renal function [facility] Measurement of renal function [facility] Measurement of renal function [facility] Measurement of renal function [facility] Measurement of renal function [facility] Measurement of renal function [facility] Measurement of renal function [facility] Neutrophil count [facility] Neutrophil count [facility] Neutrophil count [facility] Neutrophil count [facility] Neutrophil count [facility] Neutrophil count [facility] Neutrophil count [facility] Neutrophil count [facility] Neutrophil percent differential count [facility] Neutrophil percent differential count [facility] Neutrophil percent differential count [facility] Neutrophil percent differential count [facility] Neutrophil percent differential count [facility] Neutrophil percent differential count [facility] Neutrophil percent differential count [facility] Neutrophil percent differential count [facility] Nucleic acid assay [facility] Patient Education [facility] Work Phone: Patient referral [facility] Work Phone: Platelets [#/volume] in Blood [facility] Platelets [#/volume] in Blood [facility] Platelets [#/volume] in Blood [facility] Platelets [#/volume] in Blood [facility] Platelets [#/volume] in Blood [facility] Platelets [#/volume] in Blood [facility] Platelets [#/volume] in Blood [facility] Platelets [#/volume] in Blood [facility] Potassium [Moles/vol ume] in Serum or Plasma [facility] Potassium [Moles/vol ume] in Serum or Plasma [facility] Potassium [Moles/vol ume] in Serum or Plasma [facility] Potassium measurement [facility] Potassium measurement [facility] Potassium measurement [facility] Potassium measurement [facility] Potassium measurement [facility] Prq impltj neurostimulator eltrd peripheral nrv PERCUT IMPLANT NEUROELEC. Procedures Routine Chronic bilateral low back pain without sciatica Lumbar spondylosis Ordered: 07/30/2022 [facility] Work Phone: Comment on above: Ordered: 07/30/2022 Prq impltj neurostimulator eltrd peripheral nrv PERCUT IMPLANT NEUROELEC. Procedures Routine Lumbar spondylosis Chronic bilateral low back pain without sciatica Ordered: 08/13/2022 [facility] Work Phone: Comment on above: Ordered: 08/13/2022 PT PLAN OF CARE CERTIFICATION PT PLAN OF CARE CERTIFICATION Procedures Routine Lymphedema Ordered: 11/22/2021 [facility] Comment on above: Ordered: 11/22/2021 End: 10-19-2022 Radex spine lumbosacral minimum 4 views XR LUMBAR MOTION 4V AP/LAT/ FLEX/EXT Radiology Routine Lumbar spondylosis 1 Occurrences starting 09/19/2021 until 10/19/2022 [facility] Work Phone: Comment on above: 1 Occurrences starting 09/19/2021 until 10/19/2022 Radex spine lumbosac ral minimum 4 views XR LUMBAR MOTION 4V AP/LAT/ FLEX/EXT Radiology Routine Lumbar spondylosis 09/20/2021 1:48 PM EDT [facility] Work Phone: End: 10-19-2022 Radex spine thoracic 2 views XR THORACIC LIMITED 2V AP/LAT Radiology Routine Thoracic spine pain 1 Occurrences starting 09/19/2021 until 10/19/2022 [facility] Work Phone: Comment on above: 1 Occurrences starting 09/19/2021 until 10/19/2022 Radex spine thoracic 2 views XR THORACIC LIMITED 2V AP/LAT Radiology Routine Thoracic spine pain 09/20/2021 1:48 PM EDT [facility] Work Phone: Red blood cell count [facility] Red blood cell count [facility] Red blood cell count [facility] Red blood cell count [facility] Red blood cell count [facility] Red blood cell count [facility] Red blood cell count [facility] Red blood cell count [facility] Red cell distributio n width determination [facility] Red cell distributio n width determination [facility] Red cell distributio n width determination [facility] Red cell distributio n width determination [facility] Red cell distributio n width determination [facility] Red cell distributio n width determination [facility] Red cell distributio n width determination [facility] Red cell distributio n width determination [facility] Serum chloride measurement [facility] Serum chloride measurement [facility] Serum chloride measurement [facility] Serum chloride measurement [facility] Serum chloride measurement [facility] Serum inorganic phos phate measurement [facility] Sodium [Moles/volume ] in Serum or Plasma [facility] Sodium [Moles/volume ] in Serum or Plasma [facility] Sodium [Moles/volume ] in Serum or Plasma [facility] Sodium measurement [facility] Sodium measurement [facility] Sodium measurement [facility] Sodium measurement [facility] Sodium measurement [facility] Total protein measurement [facility] Troponin T.cardiac [Mass/volume] in Serum or Plasma by High sensitivity method [facility] Troponin T.cardiac [Mass/volume] in Serum or Plasma by High sensitivity method [facility] Urea nitrogen [Mass/volume] in Serum or Plasma [facility] Urea nitrogen [Mass/volume] in Serum or Plasma [facility] Urea nitrogen [Mass/volume] in Serum or Plasma [facility] Urea nitrogen [Mass/volume] in Serum or Plasma [facility] Urea nitrogen [Mass/volume] in Serum or Plasma [facility] Urea nitrogen [Mass/volume] in Serum or Plasma [facility] Urea nitrogen [Mass/volume] in Serum or Plasma [facility] Urea nitrogen [Mass/volume] in Serum or Plasma [facility] URODYNAMICS WHI URODYNAMICS I Procedures Routine Female stress incontinence Urge urinary incontinence Ordered: 06/30/2022 [facility] Work Phone (unformatted): [phone] Comment on above: Ordered: 06/30/2022 End: 02-01-2023 Us abdominal real time w/image documentation US ABDOMEN COMPLETE Radiology STAT Abdominal distension 1 Occurrences starting 01/02/2022 until 02/01/2023 [facility] Work Phone: Comment on above: 1 Occurrences starting 01/02/2022 until 02/01/2023 End: 10-12-2025 XR Chest PA and Lateral XR CHEST 2V FRONTAL/LAT Radiology Routine Subacute cough 1 Occurrences starting 09/12/2024 until 10/12/2025 [facility] Work Phone: Comment on above: 1 Occurrences starting 09/12/2024 until 10/12/2025 XR Chest PA and Lateral XR CHEST 2V FRONTAL/LAT Radiology Routine Subacute cough 09/12/2024 4:11 PM EDT [facility] End: 02-14-2024 XR SHOULDER LIMITED 2V AP/TRUE AP LEFT XR SHOULDER LIMITED 2V AP/TRUE AP LEFT Radiology Routine Primary osteoarthritis of both shoulders Rotator cuff impingement syndrome, unspecified laterality 1 Occurrences starting 01/15/2023 until 02/14/2024 [facility] Work Phone: Comment on above: 1 Occurrences starting 01/15/2023 until 02/14/2024 XR SHOULDER LIMITED 2V AP/TRUE AP LEFT XR SHOULDER LIMITED 2V AP/TRUE AP LEFT Radiology Routine Primary osteoarthritis of both shoulders Rotator cuff impingement syndrome, unspecified laterality 01/15/2023 11:18 AM EDT [facility] Work Phone: End: 02-14-2024 XR SHOULDER [id number] AP/TRUE AP RIGHT XR SHOULDER [id number] AP/TRUE AP RIGHT Radiology Routine Primary osteoarthritis of both shoulders Rotator cuff impingement syndrome, unspecified laterality 1 Occurrences starting 01/15/2023 until 02/14/2024 [facility] Work Phone: Comment on above: 1 Occurrences starting 01/15/2023 until 02/14/2024 XR SHOULDER LIMITED2 V AP/TRUE AP RIGHT XR SHOULDER [id number] AP/TRUE AP RIGHT Radiology Routine Primary osteoarthritis of both shoulders Rotator cuff impingement syndrome, unspecified laterality 01/15/2023 11:17 AM EDT [facility] Work Phone: [facility] Immunizations Immunization Date Immunization Notes Care Provider Fa [facility] 10-26-2024 tetanus toxoid, redu tana diphtheria toxoid, and acellular pertussis vaccine, adsorbed Miryam Orozco ORTHODONTIC BAND MAKER-C Work Phone: [facility] 03-23-2024 respiratory syncytia l virus (RSV) vaccine, adjuvanted (AREXVY) Lizy Capone MD Work Phone: [facility] 01-28-2024 COVID-19 vaccine, ag e 12+ yr (PFIZER-BIONTECH COMIRNATY) Miryam Orozco NAILER OPERATOR.ACCOUNTANT Work Phone: [facility] 01-28-2024 influenza, high dose seasonal, preservative-free Miryam Orozco NAILER OPERATOR.ACCOUNTANT Work Phone: [facility] 01-28-2024 influenza virus vacc ine, unspecified formulation Lizy Capone MD Work Phone: [facility] 01-04-2023 influenza, injectabl e, quadrivalent, preservative free Dr. Judson Toney Work Phone: [facility] 01-04-2023 influenza virus vacc ine, unspecified formulation Roque Delgado MD Work Phone: [facility] 02-12-2022 Influenza High-Dose Quadrivalent Dr. Judson Toney Work Phone: [facility] 02-12-2022 influenza, high dose seasonal, preservative-free Lizy Capone MD Work Phone: [facility] 02-12-2022 influenza virus vacc ine, unspecified formulation Miryam Orozco NAILER OPERATOR.ACCOUNTANT Work Phone: [facility] 12-27-2021 COVID-19 booster vaccine, age 18+ yr, bivalent (MODERNA) Allison Pryor PT [facility] 12-27-2021 COVID-19 vaccine, ag e 12+ yr, bivalent (Trending Taste-Loot!NTPhotetica) Roque Delgado MD Work Phone: [facility] Work Phone: 03-07-2021 Covid (Moderna) Dr. Judson nunez Work Phone: [facility] 12-17-2020 Influenza High-Dose Quadrivalent Dr. Judson Toney Work Phone: [facility] 12-17-2020 influenza, high dose seasonal, preservative-free Lizy Capone MD Work Phone: [facility] 07-02-2020 Covid (Moderna) Dr. Lizy lucero Work Phone: [facility] 06-04-2020 Covid (Moderna) Dr. Lizy lucero Work Phone: [facility] 11-23-2019 Influenza, high dose seasonal Miryam Orozco ORTHODONTIC BAND MAKER-C Work Phone: [facility] 11-23-2019 influenza, high dose seasonal, preservative-free Lizy Capone MD Work Phone: [facility] 01-06-2019 Seasonal trivalent influenza vaccine, adjuvanted, preservative free Dr. Judson Toney Work Phone: [facility] 12-11-2017 Influenza, high dose seasonal Miryam Orozco ORTHODONTIC BAND MAKER-C Work Phone: [facility] 12-11-2017 influenza, high dose seasonal, preservative-free Lizy Capone MD Work Phone: [facility] 08-31-2017 tetanus toxoid, redu tana diphtheria toxoid, and acellular pertussis vaccine, adsorbed Lizy Capone MD Work Phone: [facility] 01-06-2017 Influenza, high dose seasonal Miryam Tannhof ORTHODONTIC BAND MAKER-C Work Phone: [facility] 01-06-2017 influenza, high dose seasonal, preservative-free Lizy Capone MD Work Phone: [facility] 01-29-[address] Lizy Capone Work Phone: [facility] 01-23-2016 Influenza, high dose seasonal Miryam Tannhof ORTHODONTIC BAND MAKER-C Work Phone: [facility] 01-23-2016 influenza, high dose seasonal, preservative-free Dr. Judson Toney Work Phone: [facility] 12-06-2015 Influenza, high dose seasonal Miryam Tannhof ORTHODONTIC BAND MAKER-C Work Phone: [facility] 12-06-2015 influenza, high dose seasonal, preservative-free Lizy Capone MD Work Phone: [facility] 02-26-2015 pneumococcal conjuga te vaccine, 13 valent Lizy Capone MD Work Phone: [facility] 12-30-2014 Influenza, high dose seasonal Miryam Kimballhof ORTHODONTIC BAND MAKER-C Work Phone: [facility] 12-30-2014 influenza, high dose seasonal, preservative-free Lizy Capone MD Work Phone: [facility] 02-02-2012 influenza virus vacc ine, unspecified formulation Lizy Capone MD Work Phone: [facility] 02-02-2012 pneumococcal polysaccharide vaccine, 23 valent Lizy Capone MD Work Phone: [facility] 02-21-2010 influenza virus vacc ine, unspecified formulation Lizy Capone MD Work Phone: [facility] 05-17-2009 zoster vaccine, live Lizy chavis MD Work Phone: [facility] 04-16-2009 novel influenza-H1N1 -09, preservative-free, injectable Dr. Judson Toney Work Phone: [facility] 02-03-2008 influenza virus vacc ine, unspecified formulation Lizy Capone MD Work Phone: [facility] 07-01-2007 tuberculin skin test ; purified protein derivative solution, intradermal Starr Marques MD Work Phone: [facility] 02-04-2007 influenza virus vacc ine, unspecified formulation Lizy Capone MD Work Phone: [facility] Work Phone: 01-06-2007 pneumococcal polysaccharide vaccine, 23 valent Lizy Capone MD Work Phone: [facility] 02-03-2006 influenza virus vacc ine, whole virus Lizy Capone MD Work Phone: [facility] Work Phone: 01-30-2005 influenza virus vacc ine, whole virus Lizy Capone MD Work Phone: [facility] Work Phone: 01-06-2005 pneumococcal conjuga te vaccine, 7 valent Lizy Capone MD Work Phone: [facility] Work Phone: 12-26-1999 tetanus toxoid, adsorbed Shirley Capone MD Work Phone: [facility] Work Phone: Payers Date Payer Category Payer Managed Care (unspecified) [id number] 2023 Medicare [id number] 2023 Self-pay [id number] 2023 Unknown [id number] 2008 Medicare MEDICARE MEDICAR E A AND B [id number] 2008-Present [phone] [address] [address] [place] [address] Medicare [id number] 2008 Medicare [id number] 2008 Unknown [facility] [id number] 2008-Present [address] [place] [address] Indemnity [id number] [id number] 2008 Unknown [id number] 2007 Medicare [id number] 1998 Unknown [id number]. 1.13.159. [id number] 1942 Unknown [id number] 2.16.840.1.548252.3.579. 2.732 1942 Unknown [id number] 2.16.840.1.069436.3.579. 2.594 Unknown [id number] 2.16.840.1.193918.3.579. 2.462 Unknown [id number] 2.16840.1.967167.3.579. 2.462 Unknown [id number] 2.16840.1.999076.3.579. 2.462 Unknown [id number] 2.16.840.1.862026.3.579. 2.462 Unknown [id number] 2.16.840.1.997178.3.579. 2.462 Unknown [id number] 2.16.840.1.923698.3.579. 2.462 Unknown [id number] 2.16840.1.854002.3.579. 2.462 Unknown [id number] 2.16.840.1.673152.3.579. 2.462 Unknown [id number] 2.16.840.1.021934.3.579. 2.462 Unknown [id number] 2.16.840.1.819994.3.579. 2.462 Unknown [id number] 2.16.840.1.015828.3.579. 2.462 Unknown [id number] 2.16840.1.267912.3.579. 2.462 Unknown [id number] 2.16840.1.151853.3.579. 2.462 Unknown [id number] 2.840.1.682364.3.579. 2.462 Unknown [id number] 2.840.1.377848.3.579. 2.462 Unknown [id number] 2.840.1.784009.3.579. 2.462 Unknown [id number] 2.840.1.708769.3.579. 2.462 Unknown [id number] 2.840.1.281046.3.579. 2.462 Unknown [id number] 2.840.1.634373.3.579. 2.462 Unknown [id number] 2.840.1.748439.3.579. 2.462 Unknown [id number] 2.840.1.935574.3.579. 2.462 Unknown [id number] 2.840.1.651651.3.579. 2.462 Unknown [id number] 2.840.1.614069.3.579. 2.462 Unknown [id number] 2.16840.1.678096.3.579. 2.462 Unknown [id number] 2.840.1.049438.3.579. 2.462 Unknown [id number] 2.840.1.616751.3.579. 2.462 Unknown [id number] 2.16.840.1.887542.3.579. 2.462 Unknown [id number] 2.16.840.1.777183.3.579. 2.462 Unknown [id number] 2.16.840.1.049681.3.579. 2.462 Unknown [id number] 2.16.840.1.697600.3.579. 2.462 Unknown [id number] 2.16.840.1.932335.3.579. 2.462 Unknown [id number] 2.16.840.1.114496.3.579. 2.462 Unknown [id number] 2..840.1.785689.3.579. 2.462 Unknown [id number] 2.16840.1.975467.3.579. 2.462 Unknown [id number] 2.840.1.010026.3.579. 2.462 Unknown [id number] 2.16.840.1.218906.3.579. 2.462 Unknown [id number] 2.16.840.1.508854.3.579. 2.462 Unknown [id number] 2.16.840.1.458134.3.579. 2.462 Unknown [id number] 2.16840.1.870685.3.579. 2.462 Unknown [id number] 2.840.1.341138.3.579. 2.462 Unknown [id number] 2.16.840.1.777351.3.579. 2.462 Unknown [id number] 2.16.840.1.433940.3.579. 2.462 Unknown [id number] 2.16.840.1.481668.3.579. 2.462 Unknown [id number] 2.16.840.1.234607.3.579. 2.462 Unknown [id number] 2.16840.1.500426.3.579. 2.462 Unknown [id number] 2.16.840.1.516763.3.579. 2.462 Unknown [id number] 2.16.840.1.644177.3.579. 2.462 Unknown [id number] 2.16.840.1.999355.3.579. 2.462 Unknown [id number] 2.16.840.1.682461.3.579. 2.462 Unknown [id number] 2.16.840.1.977381.3.579. 2.462 Unknown [id number] 2.16.840.1.274390.3.579. 2.462 Unknown [id number] 2.16.840.1.980517.3.579. 2.462 Unknown [id number] 2.16.840.1.639240.3.579. 2.462 Unknown [id number] 2.16840.1.614651.3.579. 2.462 Unknown [id number] 2.16.840.1.293575.3.579. 2.462 Unknown [id number] 2.16.840.1.223930.3.579. 2.462 Unknown [id number] 2.16.840.1.999379.3.579. 2.462 Unknown [id number] 2.16.840.1.688058.3.579. 2.462 Unknown [id number] 2.16.840.1.808566.3.579. 2.462 Unknown [id number] 2.16.840.1.748298.3.579. 2.462 Unknown [id number] 2.16.840.1.542721.3.579. 2.462 Unknown [id number] 2.16.840.1.310240.3.579. 2.462 Unknown [id number] 2.16.840.1.111604.3.579. 2.462 Unknown [id number] 2.16.840.1.246654.3.579. 2.462 Unknown [id number] 2.16.840.1.973906.3.579. 2.462 Unknown [id number] 2.16.840.1.232941.3.579. 2.462 Unknown [id number] 2.16.840.1.713002.3.579. 2.462 Unknown [id number] 2.16.840.1.815281.3.579. 2.462 Unknown [id number] 2.16.840.1.953004.3.579. 2.462 Unknown [id number] 2.16.840.1.144408.3.579. 2.462 Unknown [id number] 2.16.840.1.311153.3.579. 2.462 Unknown [id number] 2.16840.1.746052.3.579. 2.462 Unknown [id number] 2.16.840.1.729323.3.579. 2.462 Unknown [id number] 2.16.840.1.854634.3.579. 2.462 Unknown [id number] 2.16.840.1.441993.3.579. 2.462 Unknown [id number] 2.16840.1.587143.3.579. 2.462 Unknown [id number] 2.16.840.1.106586.3.579. 2.462 Unknown [id number] 2.16.840.1.999438.3.579. 2.462 Unknown [id number] 2.16.840.1.691325.3.579. 2.462 Unknown [id number] 2.16.840.1.069898.3.579. 2.462 Unknown [id number] 2.16.840.1.358892.3.579. 2.462 Unknown [id number] 2.16.840.1.412633.3.579. 2.462 Unknown [id number] 2.16.840.1.439415.3.579. 2.462 Social History Date Type Detail Facility Start: 04-27-2017 End: 12-04-2023 Tobacco smoking status NHIS Ex-smoker [facility] Start: 04-06-1952 End: 04-06-1953 History of tobacco use Current smoker [facility] Work Phone: Start: 04-06-1952 End: 04-06-1953 History of tobacco use Cigarette Smoker [facility] Work Phone: Start: 07-16-2021 End: 10-24-2024 Alcohol intake Current drinker of alcohol (finding) [facility] Start: 11-18-2016 History SDOH Alcohol Comment ocas glass of wine [facility] Start: 1940 Sex Assigned At Not on file [facility] Start: 07-06-2021 End: 01-30-2022 Exposure to SARS-CoV-2 (event) Not sure [facility] Start: 08-06-2021 End: 05-05-2024 Tobacco smoking status NHIS Unknown if ever smoked [facility] Start: 04-15-2016 None [facility] Start: 01-09-2021 Non-smoker [facility] Start: 1940 Sex Assigned At Female W [facility] Start: 04-27-2017 End: 09-26-2022 Cigarettes smoked current (pack per day) - Reported 0.3 [facility] Start: 04-27-2017 End: 12-04-2023 Tobacco use and exposure Smokeless tobacco non-user [facility] Start: 11-28-2021 History SDOH Alcohol Comment occasionally [facility] Start: 09-26-2022 End: 10-16-2022 Tobacco use panel [facility] Adult Depression Screening Assessment 0 [facility] Start: 04-15-2016 Roommate [facility] Start: 03-14-2024 End: 07-29-2024 Sex Female (finding) [facility] Start: 05-18-2024 End: 10-26-2024 Tobacco smoking status NHIS Never smoked tobacco (finding) [facility] NEGATED: Highlighted row [facility] Medical Equipment Procedure Code Equipment Code Equipment Origin al Text Equipment Identifier Dates Anchr Sut 4.5mm Pshlk Spnl - [id number] Start: 04-24-2011 Comment on above: Description: MICHELLE ROBLES Goals Date Patient Goal Desired Activity /State Functional Status Date Assessment Result Facility 10-20-2024 Functional status Chair [facility] Work Phone: 10-19-2024 Functional status Standard Walker [facility] Work Phone: 10-18-2024 Functional status Ambulates [facility] Work Phone: 10-16-2024 Functional status Ambulates;Bath room Privilege [facility] Work Phone: 10-12-2024 Functional status With Assist of 1 [facility] Work Phone: 10-11-2024 Functional status Ambulates [facility] Work Phone: 10-04-2024 Functional status Ambulates [facility] Work Phone: 10-03-2024 Functional status Ambulates [facility] Work Phone: 06-10-2024 Functional status With Assist of 2 [facility] Work Phone: 06-07-2024 Functional status Bedrest [facility] Work Phone: 05-10-2024 Are you deaf, or do you have serious difficulty hearing No [facility] 05-10-2024 Are you blind, or do you have serious difficulty seeing, even when wearing glasses No [facility] 05-10-2024 Do you have serious difficulty walking or climbing stairs No [facility] 05-10-2024 Do you have difficul ty dressing or bathing Yes [facility] 05-10-2024 Because of a physica l, mental, or emotional condition, do you have difficulty doing errands alone such as visiting a physician's office or shopping Yes [facility] 05-05-2024 Functional status Patient unable to answe r [facility] 05-04-2024 Functional status Bedrest [facility] Work Phone: 06-09-2023 Functional status Ambulates [facility] Work Phone: 08-15-2013 Are you deaf, or do you have serious difficulty hearing No 08/15/2013 4:14 PM EDT Alex Lackey MA No [facility] 08-15-2013 Are you blind, or do you have serious difficulty seeing, even when wearing glasses No 08/15/2013 4:14 PM EDT Alex Lackey MA No [facility] 08-15-2013 Do you have serious difficulty walking or climbing stairs No 08/15/2013 4:14 PM EDT Alex Lackey MA No [facility] 08-15-2013 Do you have difficul ty dressing or bathing No 08/15/2013 4:14 PM EDT Alex Lackey MA No [facility] 08-15-2013 Because of a physica l, mental, or emotional condition, do you have difficulty doing errands alone such as visiting a physician's office or shopping No 08/15/2013 4:14 PM EDT Alex Lackey MA No [facility] Mental Status Date Assessment Result Facility 10-20-2024 Cognitive function Voice/Name [facility] Work Phone: 10-17-2024 Cognitive function Voice/Name [facility] Work Phone: 10-16-2024 Cognitive function Voice/Name [facility] Work Phone: 10-14-2024 Cognitive function Voice/Name [facility] Work Phone: 10-12-2024 Cognitive function Voice/Name [facility] Work Phone: 10-09-2024 Cognitive function Appropriate;C ooperativ e [facility] Work Phone: 10-04-2024 Cognitive function Voice/Name [facility] Work Phone: 10-03-2024 Cognitive function Voice/Name [facility] Work Phone: 09-06-2024 Cognitive function Voice/Name [facility] Work Phone: 06-10-2024 Cognitive function Voice/Name [facility] Work Phone: 05-10-2024 Because of a physica l, mental, or emotional condition, do you have serious difficulty concentrating, remembering, or making decisions No [facility] 05-04-2024 Cognitive function Touch/Shaking ;Light Pain [facility] Work Phone: 05-03-2024 Cognitive function None [facility] Work Phone: 06-09-2023 Cognitive function Voice/Name [facility] Work Phone: 08-15-2013 Because of a physica l, mental, or emotional condition, do you have serious difficulty concentrating, remembering, or making decisions No 08/15/2013 4:14 PM EDT Alex Lackey MA No [facility] Clinical Notes 11-24-2016 to 10-27-2024 Telephone Encounter - Pamela Shafer RN - 10/27/2024 9:17 AM EDTTelephone Encounter - Pamela Shafer RN - 10/27/2024 9:17 AM EDTTelephone Encounter - Lora Najera RN - 10/21/2024 12:45 PM EDT Note Date & Type Note Facility 10-27-2024 Telephone encounter Note Kamille with [facility] notified. Pamela Shafer RN [facility] 10-27-2024 Miscellaneous Notes Kamille with [facility] notified. Pamela Shafer RN Staff, Please reach out to the [facility] contact to verbally okay the patients recommended wound care needs Verbal order , yes!! Thanks , Trever Bertrand DO Kamille with [facility] calls to request orders for [...] Olga Dillard RN documented in this encounter [facility] 10-27-2024 Telephone encounter Note Staff, Please reach out to the [facility] contact to verbally okay the patients recommended wound care needs Verbal order , yes!! Thanks , Trever Bertrand DO [facility] Work Phone: 10-27-2024 Telephone encounter Note Kamille with [facility] calls to request orders for wound care [...] Please review and advise, Olga Dillard RN [facility] 10-24-2024 Telephone encounter Note Noted Seen in office today Lizy Capone MD [facility] 10-24-2024 Miscellaneous Notes Noted Seen in office today Lizy Capone MD Lora from [facility] calls and states that patient was restarted for residential services and patient will be seen 1 [...] Lora Najera RN documented in this encounter [facility] 10-24-2024 History of Presen t illness Narrative [...] 7 Day TCM Pt was admitted to [facility] on 09/28/24, following a fall, for lower extremity pain, and was discharged on 10/04/24 to TCU with debility. She was sent back down to ER on 10/12/24 for chest pains. Discharged home 10/20/24 with diagnosis of chronic renal failure, stage 4. She was discharged home with her friend, Alex. Follows with Cardio, manager logistic, urologist, going to wound center, neurologist, ortho. [...] at home > 90%. -Pt discharged from [facility] on 10/20/24. 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 She is on an anticoagulant. Patient did [...] Past Histories independently gathered by the clinical lan support specialist and the remaining scribed note accurately describes my personal service to the patient. Lizy Capone MD The documentation for this note was completed by Alex Lackey MA acting as scribe for Lizy Capone MD. October 24, 2024 2:06 PM. Alex Lackey MA documented in this encounter [facility] 10-24-2024 Hospital Discharg e instructions Additional Instructions [...] hot tubs, lakes, hernandez, oceans until fully. [facility] Work Phone: 10-24-2024 Note HNO ID: [id number] Author: LIZY CAPONE MD Service: ? Author [...] 7 Day TCM Pt was admitted to [facility] on 09/28/24, following a fall, for lower extremity pain, and was discharged on 10/04/24 to TCU with debility. She was sent back down to ER on 10/12/24 for chest pains. Discharged home 10/20/24 with diagnosis of chronic renal failure, stage 4. She was discharged home with her friend, Alex. Follows with Cardio, manager logistic, urologist, going to wound center, neurologist, ortho. [...] at home > 90%. -Pt discharged from [facility] on 10/20/24. 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 She is on an anticoagulant. Patient did [...] 100mg bid. Hypothyro (more content not included)... [facility] 10-21-2024 Note HNO ID: [id number] Author: ALEX LACKEY MA Service: ? Author Type: Frame Pulley Mortising Machine Operator Type: Progress Notes Filed: 10/21/2024 13:50 Note Text: TRANSITION CARE MANAGEMENT (TCM) INITIAL CONTACT [employer] Mortising Machine Operator Outreach Provider Action/FYI: 7 Day TCM Initial contact with patient post discharge, spoke to patient 10/21/24. Patient identified by name and . TRANSITION CARE MANAGEMENT INITIAL OUTREACH DOCUMENTATION: 10/21/2024 Date of Outreach: Outreach Attempt 1: Contact Made Date of Discharge 10/20/2024 SUMMARY: -Pt discharged from [facility] on 10/20/24. 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 She is on an anticoagulant. Patient did [...] accordingly. MEDICATIONS: Many (more content not included)... [facility] 10-21-2024 History of Presen t illness Narrative TRANSITION CARE MANAGEMENT (TCM) INITIAL CONTACT [employer]ising Machine Operator Outreach Provider Action/FYI: 7 Day TCM Initial contact with patient post discharge, spoke to patient 10/21/24. Patient identified by name and . TRANSITION CARE MANAGEMENT INITIAL OUTREACH DOCUMENTATION: 10/21/2024 Date of Outreach: Outreach Attempt 1: Contact Made Date of Discharge 10/20/2024 SUMMARY: -Pt discharged from [facility] on 10/20/24. 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 She is on an anticoagulant. Patient did [...] provider to review documented in this encounter [facility] 10-21-2024 Telephone encounter Note Lora from [facility] calls and states that patient was restarted for residential services and patient will be seen 1 [...] Dr. Capone on Thursday10/24/2024. Lora Najera RN [facility] 10-21-2024 Note Patient Outreach (FA MPWS) JOHNMARI ([id number]) 1940 F Date Time Provider Department 10/21/24 ALEX LACKEY During your visit today, we recorded the following information about you: Alex Lackey MA 10/21/2024 1:50 PM Signed TRANSITION CARE MANAGEMENT (TCM) INITIAL CONTACT [employer]ising Machine Operator Outreach Provider Action/FYI: 7 Day TCM Initial contact with patient post discharge, spoke to patient 10/21/24. Patient identified by name and . TRANSITION CARE MANAGEMENT INITIAL OUTREACH DOCUMENTATION: 10/21/2024 Date of Outreach: Outreach Attempt 1: Contact Made Date of Discharge 10/20/2024 SUMMARY: -Pt discharged from [facility] on 10/20/24. 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 She is on an anticoagulant. Patient did [...] PCP? Appointment on (more content not included)... [facility] 10-20-2024 Telephone encounter Note Natalia [facility] called and is notified of providers message. She voices understanding. Analia Gracia RN [facility] 10-20-2024 Miscellaneous Notes Natalia [facility] called and is notified of providers message. She voices understanding. Analia Gracia RN I will follow for [facility] Lizy Capone MD Natalia [facility] called in and reports Pt will be discharged form TCU tomorrow with SN/PT/OT/ST. Pt was admitted for encephalopathy, Chronic Renal Disease, and R lower extremity and thigh wound She is asking if provider will follow. Please call and advise. Analia Gracia RN documented in this encounter [facility] 10-20-2024 Telephone encounter Note I will follow for [facility] Lizy Capone MD [facility] 10-20-2024 Telephone encounter Note Natalia [facility] called in and reports Pt will be discharged form TCU tomorrow with SN/PT/OT/ST. Pt was admitted for encephalopathy, Chronic Renal Disease, and R lower extremity and thigh wound She is asking if provider will follow. Please call and advise. Analia Gracia RN [facility] 10-17-2024 Discharge summary Note Date/Time October 17, 2024 7:03pm [facility] Medical Records Department [address] [place] [address] Discharge Summary 10/17/24 1852 MR#: [id number] Acct: [id number] Name: MARI LOPEZ Rep #:[id number] : 1940 84 From: Gautam Hardy MD PCP: BROOKLYN Aguillon Status:ADM I N Location: U U18-1 Providers Date of Admission: 10/04/24 Primary Care Physician: BROOKLYN Aguillon Consultations 10/11/24 06:45 Consult: Onc/Wound/tension worker Routine Comment: Reason for Consult:: redness BLE's, [...] present medications. Discharge home with friend 10/20/2024, [facility] PT/OT/SN. Physical Exam Const alert General Appearance: [...] Additional Instructions: Discharge home with friend 10/20/2024, [facility] PT/OT/SN. Meaningful Use Info Meaningful Use Meaningful Use Diagnoses (Choose all that apply): None applicable Discharge Plan Admission Admit Date/Time: 10/04/24 14:29 Primary Reason for Your Visit: Debility. Attending Provider: Gautam Hardy Chi Primary Care Provider: Miryam Orozco Consulting Providers: Qian Albrecht Instructions Additional Instructions / Restrictions: Discharge home with friend 10/20/2024, [facility] PT/OT/SN. Discharge Orders/Prescriptions Prescriptions: New Arthritis Pain [...] BROOKLYN Orozco; Dr. Gautam Hardy MD~ Signed [facility] Work Phone: 1([phone]) 801-644507-14-2025 History and physical note Author Gautam Hardy [facility] Note Date/Time October 17, 2024 5:10 pm [facility] Medical Records Department [address] [place] [address] History & Physical Exam 10/04/241910 MR#: [id number] Acct: [id number] Name: MARI LOPEZ Rep #:[id number] : 1940 84 From: Gautam Hardy MD PCP: Miryam Orozco, ORTHODONTIC BAND MAKER-C Status:ADM I N Location: TCU [place] [address] HPI - General General Date of Admission: 10/04/24 Date of Service: 10/04/24 Chief Complaint: Here for rehabilitation. HPI Narrative MARI LOPEZ, is a 84 Female who presents with followin09/28/2024 [facility] ED lower extremity injury. Weak, cannot walk, legs give out. Physical therapy twice daily, EMS called, new tremor, new difficulty finding words. K 6.0, BUN 111, Creatinine 4.15, Magnesium 3.1, AST 289, ALT 351, Alk phos 130, Troponin 44. EKG atrial fibrillation, peaked T waves. 09/28/[address] [facility]. 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 Hold Gabapentin, continue IV fluids for tremor. [...] strengthening, prior to discharge home with roommate. [facility] Medical History (Updated 10/04/24 @ 19:25 by [...] bisacodyl 10 mg rectal suppository 10 mg DC X1 PRN Con stipation #1 ea 06/09/24 [...] Orozco; Dr. Gautam Hardy MD ~* Signed [facility] Work Phone: [phone]) 587-473107-14-2025 [facility]07-11-2025 Consult note Author Etienne Humphrey [facility] Note Date/Time October 14, 2024 4:28 pm [facility] Medical Records Department [address] [place], [place] [address] [address] Anesthesia Postop Eval II 10/14/241627 MR#: [id number] Acct: [id number] Name: MARI LOPEZ Rep #:[id number] : 1940 84 From: Etienne CARDOSO PCP: BROOKLYN Aguillon Status:REG S DC Y Race: C Location: [place] [address] Anesthesia Postop Eval I Sum Postop Eval Completion status Anesthesia document: Postop Eval 1 completed: Yes Anesthesia Postop Eval I Summary Anesthesia Postop Eval I Summary: Anesthesia Postop Eval I: Assessment Summary Airway patent Yes 10/14/24 16:21 GRADE TEACHER.MDOT Spontaneous unlabored Yes 10/14/24 16:21 GRADE TEACHER.MDOT respirations Mental status Awake,Calm 10/14/24 16:21 GRADE TEACHER.MDOT nausea No 10/14/24 16:21 GRADE TEACHER.MDOT Vomiting No 10/14/24 16:21 GRADE TEACHER.MDOT Anesthesia Postop Eval I: Fluid Summary Crystalloid volume administer 100 10/14/24 16:21 GRADE TEACHER.MDOT (ml) Colloids volume administered ( ml) Blood Product volume administered (ml) Total IV fluid infused 100 10/14/24 16:21 GRADE TEACHER.MDOT Anesthesia Postop Eval I: Summary Notes Anesthesia Complication No 10/14/24 16:21 GRADE TEACHER.MDOT Anesthesia Complication Comment: Post-operative progress note Anesthesia: Postop Eval II Evaluation Mental status: Awake and Calm Pain Level: 0 nausea: No Vomiting: No Complications Anesthesia Complication: No 10/14/241627 <Electronically signed by Etienne Humphrey CRNA> Date _ Etienne Nguyenignfamilia Signature: Date CC: ~ Signed [facility] Work Phone: [phone]) [phone] Consult note Author Etienne Humphrey [facility] Note Date/Time October 14, 2024 4:21 pm [facility] Medical Records Department [address] [place] [address] Anesthesia Postop Eval I 10/14/24 1620 MR#: [id number] Acct: [id number] Name: MARI LOPEZ Rep #:[id number] : 1940 84 From: Etienne CARDOSO PCP: BROOKLYN Aguillon Status:REG S DC Y Race: C Location: [place] [address] Anesthesia: Postop Eval I Current Vital Signs [...] Etienne Nguyenignfamilia Signature: Date CC: ~ Signed [facility] Work Phone: 1([phone]) [phone] History and physical note Author William Cruz [facility] Note Date/Time October 14, 2024 4:04 pm [facility] Medical Records Department [address] [place] [address] History & Physical Exam 10/14/24 1556 MR#: [id number] Acct: [id number] Name: MARI LOPEZ Rep #:[id number] : 1940 84 From: William Cruz DO PCP: BROOKLYN Aguillon Status:REG S DC Location: [place] [address] HPI - General HPI Narrative 84 F who presents To the rehab after recent hospital stay. I was called to see the patient due to decrease in hemoglobin and patient is on anticoagulation withEliquis twice a day for atrial fibrillation. [facility] Medical History VRE (vancomycin resistant enterococcus) culture [...] CC: BROOKLYN Orozco; William Cruz DO~ Signed [facility] Work Phone: [phone] Procedure [facility] 10-14-2024 Procedure [facility]07-11-2025 Consult note Author Shlomo Hernandez [facility] Note Date/Time October 14, 2024 2:24 pm [facility] Medical Records Department [address] [place] [address] Pre-Anesthesia Evaluation 10/14/24 1424 MR#: [id number] Acct: [id number] Name: MARI LOPEZ Rep #:[id number] : 1940 84 From: Shlomo Hernandez MD PCP: BROOKLYN Aguillon Status:REG S DC Y Race: C Location: [place] [address] ASA Classification* ASA Classification ASA Classification: 3 [...] Procedure(s): EGD Anesthesia History 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: 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 Hx Hospitalization Yes: 04/2024-06/2024 PROBABLE 09/06/24 07:38 [...] take am of surgery PONV PONV - industrial 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: PONV - industrial 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 Female HX of Motion Sickness HX of N/V After Surgery Non-Smoker Duration of Surgery greater than 60 minutes Number of Risk Factors PONV Score Height & Weight Height & Weight: Anesthesia: Height & Weight Height 5 ft 2 in 10/14/24 13:52 Weight: 117.934 kg 10/14/24 13:52 Body Mass Index (BMI) 47.5 10/14/24 13:52 Respiratory Assessment Respiratory Assessment - industrial 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: Respiratory Tract Infection Hx - industrial 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 Hx Respiratory Tract Infection Yes 09/06/24 08:56 STOP Sleep Apnea STOP Sleep Apnea - industrial 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: STOP Sleep Apnea - industrial 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 Hx Hypertension Yes 10/05/24 15:59 Hx Sleep [...] Tobacco Use History Tobacco Use History - industrial 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: Tobacco Use History - industrial 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 Tobacco Use Non-smoker 12/26/21 07:36 Smoking Status Never smoker 10/12/24 14:03 Hx Tobacco Use No 10/04/24 14:33 Years Smoking Packs Smoked per Day Smoking Cessation Date was within the last 15 years Hx Smoking Cessation Date Hx Smoking Cessation Counseling Hematologic Medial History Hematologic Hx - industrial 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: 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 Specify any problems Hx of Preganancy in last 3 Months Nurse Filling Out Transfusion & Questions: Date: Time: Patient unable to answer at this time (ie. confused, unrespo /Reproduction History /Reproductive History - industrial 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: /Reproductive Hx- industrial 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 Hx Now Gestational Age (in weeks): EDC: [...] no additional complaints, except as documented. 10/14/24 3684 <Electronically signed by Shlomo Hernandez MD > Date _ Shlomo Hernandez MD [facility] Signature: Date CC: ~ Signed [facility] Work Phone: [phone]) [phone] [facility]07-11-2025 Consult note Author Qian Albrecht [facility] Note Date/Time October 14, 2024 12:1 8pm [facility] Medical Records Department [address] [place] [address] Consultation - Nephrology 10/14/24 1217 MR#: [id number] Acct: [id number] Name: MARI LOPEZ Rep #:[id number] : 1940 84 From: Qian flores MD PCP: BROOKLYN Aguillon Status:ADM I N Location: [place] [address] Assessment & Plan Assessment/Plan (1) Chronic renal [...] episode of JOSE. Currently denies any complaints. [facility] Medical History VRE (vancomycin resistant enterococcus) culture [...] BROOKLYN Orozco; Dr. Gautam Hardy MD~ Signed [facility] Work Phone: [phone]) 449-240507-09-2025 Discharge summary Author Alexis Friend [facility] Note Date/Time October 12, 2024 4:03p [facility] Medical Records Department [address] [place] [address] Emergency Department Summary 10/12/24 MR#: [id number] Acct: [id number] Name: MARI LOPEZ Rep #:[id number] : 1940 84 From: Alexis Friend MD [...] inform me that Dr. Jackson is her assistant professor of education. She is on an anticoagulant. Patient did have an EKG performed in the TCU unit. The one that was ordered here will be canceled. She was in A-fib with RVR. Rate is 131. She has a leftbundle branch block. She was durations 144 ms. QRS duration 354 ms. There is no acute ischemic changes noted. Prior similar symptoms: Yes Recent Illness/Hospitalization: Yes [facility] Medical History VRE (vancomycin resistant enterococcus) [...] bisacodyl 10 mg rectal suppository 10 mg DC X1 PRN Con stipation #1 ea 06/09/24 [...] % (Auto) 69.2 Lymph % (Auto) 19.0 Hart % (Auto) 5.3 Eos % (Auto) 5.2 [...] 0RF bisacodyl 10 mg Suppository 10 mg DC X1 PRN (Reason: Constipation) Qty: 1 0RF [...] ODT instead of Zofran tablets. Print Language: Costa Rican Disposition Disposition: Home, Self Care What to do if you have Problems For any increased pain, shortness of breath, bleeding, nausea or vomiting, chestpain, or any unexpected problems, contact your Primary Care Provider. Call [facility] ([phone]) or report to the closest Emergency Room. Call 911 if necessary. 10/12/24 1603 <Electronically signed by Alexis Friend MD> Cosigner Signature (if applicable): CC: BROOKLYN Orozco ~ Signed [facility] Work Phone: [phone]) 397-551107-02-2025 Progress note Author Merle Liu [facility] Note Date/Time October 05, 2024 4:33p m [facility] Medical Records Department [address] [place] [address] Progress Note - Pharmacy 10/05/24 1446 MR#: [id number] Acct: [id number] Name: MARI LOPEZ Rep #:[id number] : 1940 84 From: Merle Liu PCP: BROOKLYN Aguillon Status:ADM I N Location: [place] [address] Documented by User: Merle Liu 10/05/24 15:25 [...] 22:00 10/05/24 09:28 Apixaban 2.5 Mg Tablet ([facility]) PO 2.5 mg BID VALERIO Administration Atorvastatin [...] Car[facility]ilol 6.25 Mg [facility] Administration Protocol Cholecalciferol 50 mcg 10/05/24 10:00 10/05/24 09:29 Cholecalciferol (Vit D3) 25 Mcg Tablet (1,000 Units) PO 50 mcg DAILY [facility] Administration Ferrous Sulfate 325 mg 10/05/24 12:00 10/05/24 11:03 Ferrous Sulfate 325 Mg Tablet PO 325 mg DAILY@1200 [facility] Administration Gabapentin 100 mg 10/04/24 22:00 10/05/24 13:10 Gabapentin 100 Mg Capsule PO 100 mg TID [facility] Administration Guaifenesin 600 mg 10/04/24 22:00 10/05/24 09:28 Guaifenesin 600 Mg Tablet PO 600 mg BID [facility] Administration Lacosamide 100 mg 10/04/24 22:00 10/05/24 09:29 Lacosamide 100 Mg Tablet PO 100 mg BID [facility] Administration Levothyroxine Sodium 125 mcg 10/05/24 06:00 10/05/24 05:34 Levothyroxine 125 Mcg Tablet PO 125 mcg DAILY@0600 [facility] Administration Lidocaine 1 patch 10/05/24 10:00 10/05/24 09:27 Lidocaine 5% Patch TOPICAL 1 patch DAILY [facility] Administration Protocol Mirtazapine 7.5 mg 10/04/24 20:00 10/04/24 21:17 Mirtazapine 15 Mg Tablet PO 7.5 mg 2000 [facility] Administration Multivitamins 1 tablet 10/05/24 08:00 10/05/24 09:28 Multivitamins,Therapeutic Tablet PO [facility] Administration Nitroglycerin 0.4 mg 10/04/24 15:23 Nitroglycerin (Inpatient Use) 0.4 Mg Tab.Subl SL Q5M PRN CARDIAC/CHEST PAIN Oxycodone HCl 5 mg 10/04/24 17:32 10/04/24 22:34 Oxycodone 5 Mg Tablet PO 5 mg Q4H PRN PRN Administration Pain Score 1-10 or Pre PT/OT Polyethylene Glycol 17 gm 10/05/24 10:00 10/05/24 09:27 Polyethylene Glycol 3350 17 Gm Packet PO 17 gm DAILY [facility] Administration Senna/Docusate Sodium 2 tablet 10/04/24 22:00 10/05/24 09:29 Senna/Docusate Sodium 1 Tablet PO 2 tablet BID [facility] Administration Sodium Bicarbonate 650 mg 10/04/24 17:00 [...] by Pharmacy Disagree: Define (Gabapentin 100mg tid extermination supervisor use, continue current dose.) 10/05/24 1525 <Electronically signed by Merle Liu> Merle Brock Signature (if applicable): 10/05/24 1633 <Electronically signed by Gautam Hardy MD> CC: ~ Signed [facility] Work Phone: 1(366) 724-503707-01-2025 [facility]07-01-2025 [facility]06-27-2025 Telephone encounter Note* Telephone Encounter - Lizy Capone MD - 09/30/2024 8:28 AM EDT Noted Lizy Capone MD [facility]06-27-2025 Miscellaneous Notes* Telephone Encounter - Lizy Capone MD - 09/30/2024 8:28 AM EDT Noted Lizy Capone MD * Telephone Encounter - Adela Pena LPN - 09/29/2024 10:26 AM EDT Patient friend said she is her Alex ARAUZ calling said patient is currently admitted to [facility]. She was taken via squad last night, with UTI, dehydration, confusion, high potassium, etc. She wanted tolet PCP know that. [facility] Telephone encounter Note * Telephone Encounter - Adela Pena LPN - 09/29/2024 10:26 AM EDT Patient friend said she is her POAAlex calling said patient is currently admitted to [facility]. She was taken via squad last night, with UTI, dehydration, confusion, high potassium, etc. She wanted tolet PCP know that. [facility]06-25-2025 Radiology Diagnostic study [facility]06-25-2025 Radiology Diagnostic study [facility] 09-28-2024 Radiology Diagnostic study [facility]06-25-2025 Radiology Diagnostic study [facility]06-25-2025 Discharge summary Author Jhonatan Maxwell [facility] Note Date/Time September 28, 2024 8:32 pm [facility] Medical Records Department [address] [place] [address] Emergency Department Summary 09/28/24 MR#: [id number] Acct: [id number] Name: MARI LOPEZ Rep #:[id number] : 1940 84 From: Jhonatan Maxwell DO [...] Zamora DO> Cosigner Signature (if applicable): cc: ORTHODONTIC BAND MAKER-C Miryam Tannhof ~* Signed HPI History of [...] been going on several days as well. [facility] Medical History Wears glasses Post-menopausal Open [...] bisacodyl 10 mg rectal suppository 10 mg DC X1 PRN Con stipation #1 ea 06/09/24 [...] 09/05/24 Unknown History mg-600 mg tablet extended [id number] hr (Mucinex DM) furosemide 40 mg tablet [...] following commands and that she was at [facility] year is 2024. NIH of 0 [...] 0RF bisacodyl 10 mg Suppository 10 mg DC X1 PRN (Reason: Constipation) Qty: 1 0RF [...] NP-C [Primary Care Provider] - Print Language: [place]ican What to do if you have Problems For any increased pain, shortness of breath, bleeding, nausea or vomiting, chestpain, or any unexpected problems, contact your Primary Care Provider. Call [facility] ([phone]) or report to the closest Emergency Room. Call 911 if necessary. 09/28/24 1636 <Electronically signed by Jhonatan Maxwell DO> Cosigner Signature (if applicable): CC: BROOKLYN Orozco ~ Signed [facility] Work Phone: [phone]) 695-944606-19-2025 History of Present illness Narrative* Lizy Capone [...] CONDYLE&PLATU MEDIAL&LAT COMPARTMENTS 1990 bilateral total knee s([place]) ARTHRP KNE CONDYLE&PLATU MEDIAL&LAT COMPARTMENTS 10/24/2004 bilateral [...] reverse total shoulder. Dr. Klaus Omalley with [facility] Ortho Family History FAMILY HISTORY Problem Relation [...] 08/22/2024 Negative Ketones, Urine 08/22/2024 Negative Specific [place], Ur 08/22/2024 1.010 Hemoglobin/Blood,Ur 08/22/2024 Negative pH, [...] Past Histories independently gathered by the clinical lan support specialist and the remaining scribed note accurately describes [...] PM. Alex Lackey MA documented in [facility]2025 NoteHNO ID: [id number] Author: LIZY CAPONE MD Service: ? Author [...] CONDYLEANDPLATU MEDIALANDLAT COMPARTMENTS 1990 bilateral total knee s([place]) ARTHRP KNE CONDYLEANDPLATU MEDIALANDLAT COMPARTMENTS 10/24/2004 bilateral [...] reverse total shoulder. Dr. Klaus Omalley with [facility] Ortho Family History FAMILY HISTORY Problem Relation [...] (MOM) 400 mg/5 mL (more content not included)...[facility]06-17-2025 Telephone encounter Note* Telephone Encounter - [...] stopped in the office Lizy Capone MD [facility]06-17-2025 Miscellaneous Notes* Telephone Encounter - Lizy Capone [...] office Lizy Capone MD documented in this encounterMer[facility]2025 Progress note Author Gonzalo Lomax [facility] Note Date/Time September 20, 2024 9:03 am [facility] Medical Records Department [address] [place] [address] Progress Note 09/20/24 0902 MR#: [id number] Acct: [id number] Name: MARI LOPEZ Rep #:[id number] : 1940 84 From: Gonzalo Lomax MD PCP: Miryam Orozco, ORTHODONTIC BAND MAKER-C Status:REG R CR Location: WC Subjective Subjective [...] for a check-up. Charges/Coding Procedures Integumentary 111xxx-113xx: 99949 Global Visit 09/20/24 0903 <Electronically signed by Gonzalo Lomax MD> Gonzalo Lomax MD Cosigner Signature (if applicable): CC: ~ Signed [facility] Work Phone: 1([phone]) 941-395806-12-2025 NoteHNO ID: [id number] Author: MICHAEL CARTER APRN.ACCOUNTANT Service: ? Author Type: Nurse Practitioner Type: [...] and thrombophlebitis of femoral vein (deep) (superficial) ([facility]) Unspecified sleep apnea Previous Surgical History PAST SURGICAL HISTORY Procedure Laterality Date ANESTHESIA HERNIA REPAIR LOWER ABDOMEN NOS 04/2004,05/11 gortex put in on 05/11 then taken out06/08 ARTHRP KNE CONDYLEANDPLATU MEDIALANDLAT COMPARTMENTS 1990 bilateral total knee s([place]) ARTHRP KNE CONDYLEANDPLATU MEDIALANDLAT COMPARTMENTS 10/24/2004 bilateral [...] reverse total shoulder. Dr. Klaus Omalley with [facility] Ortho Family History FAMILY HISTORY Problem Relation [...] Use Smoking status: For (more content not included)...[facility] 09-15-2024 History of Present illness Narrative* Michael Carter APRN.[facility] - 09/15/2024 1:47 PM EDT Chief Complaint [...] CONDYLE&PLATU MEDIAL&LAT COMPARTMENTS 1990 bilateral total knee s([place]) ARTHRP KNE CONDYLE&PLATU MEDIAL&LAT COMPARTMENTS 10/24/2004 bilateral [...] reverse total shoulder. Dr. Klaus Omalley with [facility] Ortho Family History FAMILY HISTORY Problem Relation [...] by Dr. Capone as well. Michael Carter APRN.ACCOUNTANT documented in [facility] Telephone encounter Note * Telephone Encounter - Analia Gracia RN - 09/15/2024 9:32 AM EDT Pts friend Alex called and is notified of providers message and instructions. She voices understanding. Tried to get her in with Dr Capone, but friend said there is no way she would be able tip ready by those appointment times. Pt scheduled with Michael Carter ORTHODONTIC BAND MAKER. Analia Gracia RN [facility]06-12-2025 Miscellaneous Notes* Telephone Encounter - Analia Gracia RN - 09/15/2024 9:32 AM EDT Pts friend Alex called and is notified of providers message and instructions. She voices understanding. Tried to get her in with Dr Capone, but friend said there is no way she would be able tip ready by those appointment times. Pt scheduled with Michael Carter ORTHODONTIC BAND MAKER. Analia Gracia RN * Telephone Encounter - [...] advise. Analia Gracia RN documented in this encounterMer[facility]-2025 Telephone encounter Note * Telephone Encounter - Samuel Gonzalez DO - 09/14/2024 9:20 PM EDT I think she needs to be assessed in the office. There are no definite signs of pneumonia, but clinical exam is needed to correlate and listen to her to make this judgement Samuel Gonzalez DO [facility] Work Phone: 1(648) 912-528506-11-2025 Telephone encounter Note* Telephone Encounter - Analia Gracia RN - 09/14/2024 12:57 PM EDT Pt called in asking for her chest x-ray results. She states she thinks she has pneumonia. Please call and advise. Analia Gracia, RN [facility]06-09-2025 Progress note Author Gonzalo Lomax [facility] Note Date/Time September 12, 2024 2:18p m [facility] Medical Records Department [address] [place] [address] Progress Note 09/12/24 1416 MR#: [id number] Acct: [id number] Name: MARI LOPEZ Rep #:[id number] : 1940 84 From: Gonzalo Lomax MD [...] F/u in 1 week Procedures Integumentary 111xxx-113xx: 78625 Global Visit 09/12/24 1418 <Electronically signed by Gonzalo Lomax MD> Gonzalo Lomax MD Cosigner Signature (if applicable): CC: ~ Signed [facility] Work Phone: 1(197) 266-246706-09-2025 History of Present illness Narrative* Alcon Santiago, [...] PATIENT PRESENTS WITH AN IMPLANTABLE OR ATTACHED DISABILITY HEARING OFFICER: No RADIOLOGY DEPARTMENT: General X-ray: Exam(s) Completed: Chest X-Ray PERIPHERAL IV DATA: Not applicable SIGNED BY: RT Gracy(Jean Pierre) September 12, 2024 3:52 PM documented in this encounterMer[facility]25 NoteHNO ID: [id number] Author: ALCON SANTIAGO RT(R) Service: Radiology Author [...] PATIENT PRESENTS WITH AN IMPLANTABLE OR ATTACHED DISABILITY HEARING OFFICER: No RADIOLOGY DEPARTMENT: General X-ray: Exam(s) Completed: Chest X-Ray PERIPHERAL IV DATA: Not applicable SIGNED BY: RT Gracy(R) September 12, 2024 3:52 [facility]06-09-2025 Telephone encounter Note* Telephone Encounter - Alex Lackey MA - 09/12/2024 2:43 PM EDT Pt notified. Alex Lackey MA [facility]06-09-2025 Miscellaneous Notes* Telephone Encounter - Alex Lackey [...] xray done. Please advise documented in this encounterMer[facility]06-[facility]-2025 Telephone encounter Note * Telephone Encounter - Lizy Capone MD - 09/12/2024 2:29 PM EDT OK for CXR as ordered Lizy Capone MD [facility]06-09-2025 Telephone encounter Note* Telephone Encounter - Adela [...] to have chest xray done. Please advise [facility]06-05-2025 Telephone encounter Note* Telephone Encounter - Analia Gracia RN - 09/08/2024 4:00 PM EDT [place] with [facility] and Pt called and notified of providers message. They voice understanding. Analia Gracia RN [facility]06-05-2025 Miscellaneous Notes* Telephone Encounter - Analia Gracia RN - 09/08/2024 4:00 PM EDT [place] with [facility] and Pt called and notified of providers message. They voice understanding. Analia Gracia RN * Telephone Encounter - Lizy Capone MD - 09/08/2024 3:54 PM EDT OK for continuation of both medications; Rxs sent to pharmacy Lizy Capone MD * Telephone Encounter - Josselin Baxter RN - 09/07/2024 1:48 PM EDT D[place]s with [facility] calling with pt update for [...] extend treatment or for any other orders. [phone]. Josselin Baxter RN documented in this encounterMer[facility]06-[facility]-2025 Telephone encounter Note * Telephone Encounter - Lizy Capone MD - 09/08/2024 3:54 PM EDT OK for continuation of both medications; Rxs sent to pharmacy Lizy Capone MD [facility]06-04-2025 Telephone encounter Note* Telephone Encounter - Josselin Baxter RN - 09/07/2024 1:48 PM EDT D[place]s with [facility] calling with pt update for [...] extend treatment or for any other orders. [phone]. 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: 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 Hx Hospitalization No 09/04/24 00:24 Any Problems [...] take am of surgery PONV PONV - industrial 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: PONV - industrial 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 Female Yes 09/02/24 11:04 HX of Motion [...] 09/06/24 08:12 Respiratory Assessment Respiratory Assessment - industrial 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: Respiratory Tract Infection Hx - industrial 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 Hx Respiratory Tract Infection No 09/02/24 11:04 Any additional information?: Yes Hx Respiratory Tract Infection: Yes History of Anesthesia Respiratory Infection details: Patient was recently put on doxycycline for lung infection. She has only been on it for a couple days. STOP Sleep Apnea STOP Sleep Apnea - industrial 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: STOP Sleep Apnea - industrial 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 Hx Hypertension Yes 09/04/24 00:24 Hx Sleep [...] Tobacco Use History Tobacco Use History - industrial 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: Tobacco Use History - industrial 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 Tobacco Use Non-smoker 12/26/21 07:36 Smoking Status Never smoker 09/02/24 11:04 Hx Tobacco Use No 09/02/24 11:04 Years Smoking Packs Smoked per Day Smoking Cessation Date was within the last 15 years Hx Smoking Cessation Date Hx Smoking Cessation Counseling Hematologic Medial History Hematologic Hx - industrial 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: Hematologic Medical Hx - carpet binder Hx of Blood Transfusion Yes 09/02/24 11:04 [...] confused, unrespo /Reproduction History /Reproductive History - industrial 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: /Reproductive Hx- industrial 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 Hx Now No 09/02/24 11:04 Gestational Age [...] bisacodyl 10 mg rectal suppository 10 mg DC X1 PRN Con stipation #1 ea 06/09/24 [...] 09/05/24 Unknown History mg-600 mg tablet extended [id number] hr (Mucinex DM) furosemide 40 mg tablet [...] However there are still present throughout.) 09/06/24 6300 <Electronically signed by Robinson padilla MD> Date _ Robinson Hyman MD [facility] Signature: Date CC: ~ Signed [facility] Work Phone: [phone]) 310-682506-03-2025 Procedure [facility] 09-06-2024 History and physical note Author Gonzalo Lomax [facility] Note Date/Time September 06, 2024 7:36a m [facility] Medical Records Department [address] [place] [address] H&P Exam - Surgical 09/06/24 0734 MR#: [id number] Acct: [id number] Name: MARI LOPEZ Rep #:[id number] : 1940 84 From: Gonzalo Lomax MD PCP: BROOKLYN Aguillon Status:REG S DC Location: [place] [address] HPI - General HPI Narrative History of Wound: Mari Lopez is a delightful 84-year-old female who presents today as a 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 She was doing [...] and evaluated. Ready to proceed with surgery. [facility] Medical History Wears glasses Post-menopausal Open wound [...] bisacodyl 10 mg rectal suppository 10 mg DC X1 PRN Con stipation #1 ea 06/09/24 [...] 09/05/24 Unknown History mg-600 mg tablet extended sionwtp17 hr (Mucinex DM) furosemide 40 mg tablet [...] BROOKLYN Orozco; Dr. Gonzalo Lomax MD~ Signed [facility] Work Phone: 1(424) 368-849006-02-2025 Telephone encounter Note* Telephone Encounter - Alex Lackey MA - 09/05/2024 3:15 PM EDT Pt notified and voiced understanding. Alex Lackey MA [facility]06-02-2025 Miscellaneous Notes* Telephone Encounter - Alex Lackey MA - 09/05/2024 3:15 PM EDT Pt notified and voiced understanding. Alex Lackey MA * Telephone Encounter - Lizy Capone MD - 09/05/2024 2:35 PM EDT Med list reviewed and prescriptions sent to [facility]. May stop Eliquis and Protonix Lizy [...] stay on will need refilled to [facility]. Asking for this to be done BHUMIKA as she is almost out of medications. Alex Lackey MA documented in this encounterMer[facility]06-[facility]25 Telephone encounter Note * Telephone Encounter - Lizy Capone MD - 09/05/2024 2:35 PM EDT Med list reviewed and [facility] May stop Eliquis and Protonix Lizy Capone MD [facility]06-02-2025 Telephone encounter Note* Telephone Encounter - Alex [...] stay on will need refilled to [facility]. Asking for this to be done BHUMIKA as she is almost out of medications. Alex Lackey MA [facility]06-02-2025 Telephone encounter Note* Telephone Encounter - Mulugeta Jennings APRN.CNP - 09/05/2024 7:24 AM EDT The following approved medication requests have been transmitted electronically. Requested Prescriptions Pending Prescriptions Disp Refills levothyroxine (LEVOXYL) 125 mcg tablet 90 tablet 3 Sig: Take 1 tablet by mouth once daily. Take on empty stomach. For thyroid. Mulugeta Jennings APRN.CNP [facility]06-02-2025 Miscellaneous Notes* Telephone Encounter - Mulugeta Jennings [...] 05, 2024 6:49 AM documented in this encounterMer[facility]06-[facility]25 Telephone encounter Note * Telephone Encounter - [...] Zuluaga LPN September 05, 2024 6:49 AM [facility]06-01-2025 NoteHNO ID: [id number] Author: DEACON VALDEZ APRN.ACCOUNTANT Service: ? Author Type: Nurse Practitioner Type: Progress Notes Filed: 09/04/2024 14:51 Note Text: This note was created using [employer]. Subjective Mari Lopez is a 84 year old female. HPI Patient presents today complaining of some shortness of breath and wheezing which has been ongoing for the last 2 weeks. She denies any fevers. She notes that she was recently discharged from [facility] after having been hospitalized for sepsis. [...] - BENZONATATE 100 MG CAPSULE Deacon Valdez APRN.[facility]JMer[facility]06-01-2025 History of Present illness Narrative* Deacon Valdez APRN.ACCOUNTANT - 09/04/2024 2:48 PM EDT This note was created using [employer]. Subjective Mari Lopez is a 84 year old female. HPI Patient presents today complaining of some shortness of breath and wheezing which has been ongoing for the last 2 weeks. She denies any fevers. She notes that she was recently discharged from [facility] after having been hospitalized for sepsis. [...] CAPSULE Deacon Valdez APRN.CJ documented in this encounterMer[facility] Health [facility]05-[facility]-2025 Telephone encounter Note * Telephone Encounter - Analia Gracia RN - 09/01/2024 6:07 PM EDT Called and left a detailed voicemail notifying Lora from [facility] of providers message. Clinic phone number was left in case she had any questions. Analia Gracia RN [facility]05-29-2025 Miscellaneous Notes* Telephone Encounter - Analia Gracia RN - 09/01/2024 6:07 PM EDT Called and left a detailed voicemail notifying Lora from [facility] of providers message. Clinic phone [...] 10:36 AM EDT Lora from [facility] calls and reports that patient started with home health services. Lora makes note of a couple different things: Patient is on iron tablets which is contradicted for someone with peanut allergies. Patient has been taking medication with no issues. Patient had discharged from [facility] with oxycodone orders of 5 mg every morning then 5 mg q4h PRN Pain. Lora does not think patient is taking medication regularly but asking if PCP ok with those orders? Patient has mirena IUD. Asking if that can be noted on patient's medication list? Please review and advise, Lora Najera RN documented in this encounterMercy Health [facility]05-29-2025 Progress note Author Gonzalo Lomax [facility] Note Date/Time September 01, 2024 3:14p m [facility] W[facility]aling [facility] [address] [place] [address] Progress Note - Wound Care 09/01/24 1512 MR#: [id number] Acct: [id number] Name: MARI LOPEZ Rep #:[id number] : 1940 84 From: Gonzalo Lomax MD PCP: Miryam Orozco ORTHODONTIC BAND MAKERRonald Status:REG R CR Location: History of Present Illness Date of Service: 09/01/24 History of Wound: Mari Lopez is a delightful 84-year-old female who presents today as a 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 She was doing [...] Charges/Coding Visit Charges Office Visits / Consults: 81199 OV L3 Est 20min Physical Exam Narrative [...] Date Recorded By Document 08/15/24 09:19 ML [id number] 08/15/24 09:22 ML Document 08/22/24 09:46 DL [id number] 08/22/24 09:56 DL Document 09/01/24 14:39 JF [id number] 09/01/24 14:49 JF 08/15/24 08/22/24 09/01/24 09:19 09:46 14:39 - Today's Visit Information Type of service Follow-up Visit Follow-up Visit Follow-up Visit (Physician/ACCOUNTANT (Physician/ACCOUNTANT (Physician/ACCOUNTANT ) ) ) Arrival Mode Wheelchair Ambulatory, [...] Date Recorded By Document 08/15/24 09:19 ML [id number] 08/15/24 09:22 ML Edit Result 08/15/24 09:19 ML (1) [id number] 08/15/24 09:26 ML Document 08/22/24 09:46 DL [id number] 08/22/24 09:56 DL Document 09/01/24 14:39 JF [id number] 09/01/24 14:49 JF (1) RLE - Slough/Fibrin [...] Date Recorded By Document 08/15/24 09:26 BMF [id number] 08/15/24 09:35 BMF Document 08/22/24 10:35 BMF [id number] 08/22/24 10:48 BMF Edit Result 08/22/24 10:35 BMF (1) [id number] 08/31/24 08:41 BMF Document 09/01/24 14:59 DS [id number] 09/01/24 15:02 DS (1) RLE - Debridement, [...] Date Recorded By Document 08/15/24 09:53 DL [id number] 08/15/24 09:54 DL Document 08/22/24 11:11 [id number] 08/22/24 11:11 JF Edit Result 08/22/24 11:11 JF (1) [id number] 08/22/24 11:23 JF (1) RLE - Setting [...] Summary of Care Provided Yes Facility Type [facility] Care Facility Orders Sent Yes Assessment/Plan Assessment/Plan [...] for insurance prior authorization are as follows: [id number], [id number] 09/01/24 1514 <Electronically signed by Gonzalo Lomax MD> Cosigner Signature (if applicable): CC: ~ Signed [facility] Work Phone: 1(217) 323-997505-27-2025 Telephone encounter Note* Telephone Encounter - Lizy Capone MD - 08/30/2024 4:55 PM EDT OK to stay on iron as she is taking it. OK for pain med orders Mirena added to Med list. . Lizy Capone MD [facility]05-27-2025 Telephone encounter Note* Telephone Encounter - Lora Najera RN - 08/30/2024 10:36 AM EDT Lora from [facility] calls and reports that patient started with home health services. Lora makes note of a couple different things: Patient is on iron tablets which is contradicted for someone with peanut allergies. Patient has been taking medication with no issues. Patient had discharged from [facility] with oxycodone orders of 5 mg every morning then 5 mg q4h PRN Pain. Lora does not think patient is taking medication regularly but asking if PCP ok with those orders? Patient has mirena IUD. Asking if that can be noted on patient's medication list? Please review and advise, Lora Najera RN [facility]05-19-2025 Progress note Author Gonzalo Lomax [facility] Note Date/Time August 22, 2024 12:08 pm [facility] [address] [place] [address] Progress Note - Wound Care 08/22/24 1146 MR#: [id number] Acct: [id number] Name: MARI LOPEZ Rep #:[id number] : 1940 84 From: Gonzalo Lomax MD PCP: Miryam Orozco ORTHODONTIC BAND MAKER-C Status:REG R CR Location: WC ADDENDUM by Dr. Gonzalo Lomax MD on 08/22/24 at 1208 Addendum Addendum: elle kline CPT: 52364, 23365 Procedures Integumentary 111xxx-113xx: 46187 [place] subq tissue 20 sq cm/< Add On Codes: 28068 [place] subq tissue add-on 08/22/24 1208<Electronically signed by Gonzalo Lomax MD> Cosigner Signature (if applicable): cc: ~* Signed ADDENDUM by Dr. 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 She was doing [...] 09:46 08/22/24 09:46 Charges/Coding Procedures Integumentary 111xxx-113xx: 94663 [place] subq tissue 20 sq cm/< Physical [...] Date Recorded By Document 08/15/24 09:19 ML [id number] 08/15/24 09:22 ML Document 08/22/24 09:46 DL [id number] 08/22/24 09:56 DL 08/15/24 08/22/24 09:19 09:46 WC - Today's Visit Information Type of service Follow-up Visit Follow-up Visit (Physician/ACCOUNTANT (Physician/ACCOUNTANT ) ) Arrival Mode Wheelchair Ambulatory, Walker [...] Date Recorded By Document 08/15/24 09:19 ML [id number] 08/15/24 09:22 ML Edit Result 08/15/24 09:19 ML (1) [id number] 08/15/24 09:26 ML Document 08/22/24 09:46 DL [id number] 08/22/24 09:56 DL (1) RLE - Slough/Fibrin [...] Recorded Date Recorded By Document 08/15/24 09:26 [facility] [id number] 08/15/24 09:35 BM Document 08/22/24 10:35 [facility] [id number] 08/22/24 10:48 [facility] 08/15/24 08/22/24 09:26 10:35 Wound Center [...] Date Recorded By Document 08/15/24 09:53 DL [id number] 08/15/24 09:54 DL Document 08/22/24 11:11 JF [id number] 08/22/24 11:11 JF Edit Result 08/22/24 11:11 JF (1) [id number] 08/22/24 11:23 JF (1) RLE - Setting [...] Summary of Care Provided Yes Facility Type [facility] Care Facility Orders Sent Yes Assessment/Plan Assessment/Plan [...] for insurance prior authorization are as follows: [id number], [id number] 08/22/24 1158 <Electronically signed by Gonzalo Lomax MD> Cosigner Signature (if applicable): CC: ~ Signed [facility] Work Phone: 1(212) 103-956105-19-2025 History of Present illness Narrative* Lizy Capone [...] pt was re-admitted back in April into [facility] ICU for sepsis and kidney failure. Pt was intubated while admitted. She was then life flighted to [facility] ICU to see Neurology on 05/04/24 and discharged on 05/18/24 to a Rehab Facility, staying until 06/10/24. Pt was then d/c to [place] rehab on 06/10/24 and has not yet [...] of seizure x [address] [facility]. Pt notes she had 3 seizures while her flight to [facility]. Is scheduled with [facility] in September. Pt reports today that she is supposed to be onmedication for 6 months. Nephro - Follows with Dr. Casper. Hx of CKD. When in the hospital pt had kidney failure. Did not require dialysis. Cardio - Follows with [facility], Dr. Jackson. Hx of heart [...] reports an incident that occurred while at NH, where she was trying to get into her car, Therapist did not lock her wheelchair. She hit her right lower leg on the running board of her car causing a hematoma. Following with Dr. Lomax, has had to have area cleaned out a couple of times. Wound Center put in an order for [facility] HH to change dressing 3x per [...] and thrombophlebitis of femoral vein (deep) (superficial) ([facility]) Unspecified sleep apnea Previous Surgical History PAST SURGICAL HISTORY Procedure Laterality Date ANESTHESIA HERNIA REPAIR LOWER ABDOMEN NOS 04/2004,05/11 gortex put in on 05/11 then taken out06/08 ARTHRP KNE CONDYLE&PLATU MEDIAL&LAT COMPARTMENTS 1990 bilateral total knee s([place]) ARTHRP KNE CONDYLE&PLATU MEDIAL&LAT COMPARTMENTS 10/24/2004 bilateral [...] reverse total shoulder. Dr. Klaus Omalley with [facility] Family History FAMILY HISTORY Problem Relation [...] mg 24 hr tablet Take by mouth. Wulfqtlrqhh-Fmwcgbbxm-Rdy C-Mn (GLUCOSAMINE CHONDROITIN MAXSTR) 500-400 mg cap Take 1 capsule by mouth three times daily. COMPOUNDED PRESCRIPTION Stair lift DAILY-LUISITO tablet TAKE 1 TABLET BY MOUTH ONCE DAILY. cwlbgbw-hswovvtrm-anclfcf D3 (CALCIUM 500+D) 500 mg(1,250mg) -200 unit [...] Moderate Lizy Capone MD documented in this encounterMer[facility]05-[facility]-2025 NoteHNO ID: [id number] Author: LIZY CAPONE MD Service: ? Author [...] pt was re-admitted back in April into [facility] ICU for sepsis and kidney failure. Pt was intubated while admitted. She was then life flighted to [facility] ICU to see Neurology on 05/04/24 and discharged on 05/18/24 to a Rehab Facility, staying until 06/10/24. Pt was then [place]c to [place] rehab on 06/10/24 and has not yet [...] of seizure x [address] [facility]. Pt notes she had 3 seizures while her flight to [facility]. Is scheduled with [facility] in September. Pt reports today that she is supposed to be on medication for 6 months. Nephro - Follows with Dr. Casper. Hx of CKD. When in the hospital pt had kidney failure. Did not require dialysis. Cardio - Follows with [facility], Dr. Jackson. Hx of heart failure, and PE. Pt takes Eliquis 5 mg bid, ASA 81 mg once daily, Zestoretic 10-12.5 mg once daily, Lasix 40 mg once daily and Toprol XL 50 mg once daily. Pulm - Hx of pulmonary issues. Schedule with [facility], did see [facility]. Anemia - [...] reports an incident that occurred while at NH, where she was trying to get into her car, Therapist did not lock her wheelchair. She hit her right lower leg on the running board of her car causing a hematoma. Following with Dr. Lomax, has had to have area cleaned out a couple of times. Wound Center put in an order for [facility] HH to change dressing 3x per [...] CONDYLEANDPLATU MEDIALANDLAT COMPARTMENTS 1990 bilateral total knee s([place]) ARTHRP KNE CONDYLEANDPLATU MEDIALANDLAT COMPARTMENTS 10/24/2004 bilateral [...] reverse total shoulder. Dr. Klaus Omalley with [facility] Family History FAMILY HISTORY Problem Relation [...] tablet by m (more content not included)... [place] [address]-12-2025 History and physical note Author Gonzalo Lomax [facility] Note Date/Time August 15, 2024 9:52a m [facility] [address] [place] [address] H&P Exam - Wound Care 08/15/24 0841 MR#: [id number] Acct: [id number] Name: MARI LOPEZ Rep #:[id number] : 1940 84 From: Gonzalo Lomax MD PCP: Miryam Orozco ORTHODONTIC BAND MAKER-C Status:REG R CR Location: History of Present Illness Date of Service: 08/15/24 History of Wound: Mari Lopez is a delightful 84-year-old female who presents today as a referral from 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 She was doing [...] Dakin's soaked Kerlix. No fevers or chills. [facility] Medical History Urinary incontinence Osteopenia Spinal osteophytosis [...] bisacodyl 10 mg rectal suppository 10 mg DC X1 PRN Con stipation #1 ea 06/09/24 [...] tolerated procedure well Charges/Coding Procedures Integumentary 111xxx-113xx: 47326 Socorro musc/fascia 20 sq cm/< Add On Codes: 22159 [place] musc/fascia add-on (x 3 units ) [...] Cosigner Signature (if applicable): CC: ~ Signed [facility] Work Phone: 1(306) 461-770505-09-2025 Evaluation note* Diagnosis Onset Date Resolution Status [...] lower extremity acute October 10, 2024 1:41pm [facility] Work Phone: 1(125) 122-588405-09-2025 Evaluation note* Diagnosis Onset Date Resolution Status [...] on chronic anemia chronic J 2024 1:45pm [facility] Work Phone: 1(233) 994-810405-09-2025 Evaluation note* Diagnosis Onset Date Resolution Status [...] lower extremity acute October 24, 2024 9:15am [facility] Work Phone: 1(231) 204-112005-09-2025 Evaluation note* Diagnosis Onset Date Resolution Status [...] ejection fraction inactive October 25, 2024 2:12pm [facility] Work Phone: [phone] [id number] Discharge summary Author Jean Paul Ha [facility] Note Date/Time July 29, 2024 3:4 2pm [facility] Medical Records Department [address] [place] [address] Emergency Department Summary 07/29/24 MR#: [id number] Acct: [id number] Name: MARI LOPEZ Rep #:[id number] : 1940 84 From: Jean Paul Vieyra [...] oxycodone at facility to help with pain. [facility] Medical History Urinary incontinence Osteopenia Spinal [...] bisacodyl 10 mg rectal suppository 10 mg DC X1 PRN Con stipation #1 ea 06/09/24 [...] clinician: N/A This note was generated with [employer] dictation software. It may contain incorrectwords, spelling, [...] 0RF bisacodyl 10 mg Suppository 10 mg DC X1 PRN (Reason: Constipation) Qty: 1 0RF [...] Orozco NP-C [Primary Care Provider] - Hyperbaric Medicine,[place] [facility] [Non-Staff] - 1 Week Activity Restrictions/Additional Instructions: X-ray right leg negative. Continue ice to help with burning. Jeancarlos wrap to help with compression. You have medication of oxycodone use at facility. Daily wound care. Follow-up with wound care clinic to make sure appropriate healing. Print Language: Costa Rican Disposition Disposition: Home, Self Care What to do if you have Problems For any increased pain, shortness of breath, bleeding, nausea or vomiting, chestpain, or any unexpected problems, contact your Primary Care Provider. Call [facility] ([phone]) or report to the closest Emergency Room. Call 911 if necessary. 07/29/24 1542 <Electronically signed by Jean Paul Vieyra> Cosigner Signature (if applicable): CC: BROOKLYN Orozco ~ Signed [facility] Work Phone: 1(555) 546-377404-25-2025 Radiology Diagnostic study [facility]03-31-2025 Telephone encounter Note* Telephone Encounter - [...] 90 days. Authorizing Provider: MULUGETA JENNINGS APRN.CNP [facility]03-31-2025 Miscellaneous Notes* Telephone Encounter - Mulugeta Jennings [...] 01, 2024 4:40 PM [facility] Telephone encounter Note * Telephone Encounter - [...] Isabell Dove July 01, 2024 4:40 PM [facility]03-07-2025 [facility]02-13-2025 [facility]02-12-2025 Evaluation note* Diagnosis Onset Date Resolution [...] lower extremity acute September 01, 2024 2:45pm [facility] Work Phone: 1(618) 592-859002-12-2025 Evaluation note* Diagnosis Onset Date Resolution Status [...] 2024 2:45pm Seizure disorder chronic September 8:38am [facility] Work Phone: 1(790) 314-607602-12-2025 Evaluation note* Diagnosis Onset Date Resolution Status [...] lower extremity acute September 06, 2024 7:22am [facility] Work Phone: 1(705) 767-955402-12-2025 Evaluation note* Diagnosis Onset Date Resolution Status [...] flap graft acute September 19, 2024 2:00pm [facility] Work Phone: 1(814) 163-471502-12-2025 Evaluation note* Diagnosis Onset Date Resolution Status [...] kidney injury) acute September 28, 2024 8:00pm [facility] Work Phone: 1(190) 475-353502-12-2025 Evaluation note* Diagnosis Onset Date Resolution Status [...] 8:00pm Encephalopathy resolved September 28, 2024 8:00pm [facility] Work Phone: 1(471) 250-836002-12-2025 Miscellaneous Notes* Nursing Notes - Steffany Mishra [...] EST NG clogged, unable to unclog tube. [facility] notified. Attempted to place new NG, unable to advance tube. [facility] notified. * Plan of Care [...] oropharyngeal swallow function to most appropriately guide RELIGIOUS EDUCATION TEACHER plan of care Outcome: Met * Plan of Care - Nazanin Kaye RD - 05/16/2024 1:31 PM EST Problem: Enteral Nutrition Goal: Feeding Tolerance Outcome: Progressing Nutrition Recommendations and Plan of Care: 1. Diet advancement pending MBS/per RELIGIOUS EDUCATION TEACHER 2. Continue current enteral nutrition regimen: Nepro 1.8 @ 35 mL/hr- provides 840mL volume, 1512kcal, 68g pro, 134g CHO, 611mL free H2O - increase to 1pkt Prosource TF BID - provides additional 80kcal, 22g pro - at minimum recommend 30mL flushes q4 hrs to maintain tube patency 3. If halfway enteral nutrition is anticipated, recommend transitioning to [...] pharyngeal swallow function to most appropriately guide RELIGIOUS EDUCATION TEACHER plan of care Outcome: Ongoing * [...] Joao Shafer DO Nephrology Fellow PGY-5 [facility] Pager [phone] * Plan of Care - Javed Sanchez [...] pharyngeal swallow function to most appropriately guide RELIGIOUS EDUCATION TEACHER plan of care Outcome: Ongoing * [...] areas and protect. Order in Workday # [id number] Supplied on Unit Bed Surface: Standard mattress [...] Image Dressing Status Changed/New;Dry;Intact Closure None Assessment Moist;[place];Subcutaneous Fat;Edema Laura-Wound Assessment Blanchable;Dry;Ecchymotic;Edema Wound Length (cm) [...] notified of assessment and plan. Please page #[phone] or reconsult with any further needs. Analia [...] 10:00 PM EST On admission to [facility], from SICU a dual RN initial assessment [...] Medicine Transfer Note Patient: Mari Lopez, 1940, [id number] Physician: Vy Curry MD, PGY1, GM8 service [...] Macrocytic anemia Acute anemia likely due to PIPE SETTER in the setting of acute illness and [...] line since removed. - Followings Dr. Gilmore (manager logistic) every 6 months - Nephrology consulted, appreciate [...] Code Status: Full Code Disposition: Transferred to [facility], will likely go to [facility] when medically cleared yV Curry MD Internal Medicine-Pediatrics PGY-1 [facility] 05/10/24 Hospital Course: On 05/01/24 EMS transferred patient to [facility] and then she became non responsiveand hypotensive requiring norepinephrine. EEG noted GPDs and neurology was consulted and reviewed EEG who believed it met criteria status epilepticus. Patient was transferred to [facility] on 05/04 for further neurological medical management. She was admitted to the MICU for critical care management. Per H&P: The patient initially presented to the [facility] ED 05/01/24 with AMS found to havesevere metabolic derangements (pH 7.0, acute renal failure with uremia, hyperkalemia, acidosis). She was intubated, initiated on broad spectrum antibiotics, and placed on vasopressors after inadequate response to 30 cc/kg IVF resuscitation. CTH on admission reportedly normal (reports not available or included in transfer paperwork, [facility] radiology contacted to push images). An [...] 3.6 cm above the level of the lsia, in good position. 3. Unchanged left basilar [...] ileus. * Treatment Plan - Pratik Ennis, NAILER OPERATOR-ACCOUNTANT - 05/10/2024 11:15 AM EST MICU CAREY [...] anemia - Acute anemia likely due to PIPE SETTER in the setting of acute illness and [...] a recent baseline - Followings Dr. Gilmore (manager logistic) every 6 months - Nephrology consulted - [...] TADEO. On 05/01/24 EMS transferred patient to [facility] and then she became non responsive and hypotensive requiring norepinephrine. EEG noted Gpds and neurology was consulted and reviewed EEG and met criteria status epilepticus. Patient was transferred to [facility] on 05/04 for further neurological medical management. [...] reflect their recommendations. Connor Yessy KING pager [phone] MICU CAREY Pager numbers [phone] MICU DORIS pager [phone] A-H Romie ICU pager [phone] ICU [place] pager [phone] ICU LOPEZ pager [phone] * Plan of Care - Lamonte Hogan [...] anemia - Acute anemia likely due to PIPE SETTER in the setting of acute illness and [...] 6 months ago - Followings Dr. Gilmore (manager logistic) every 6 months - Nephrology consulted - [...] TADEO. On 05/01/24 EMS transferred patient to [facility] and then she became non responsive and hypotensive requiring norepinephrine. EEG noted Gpds and neurology was consulted and reviewed EEG and met criteria status epilepticus. Patient was transferred to [facility] on 05/04 for further neurological medical management. [...] edited to reflect their recommendations. Connor Ennis NAILER OPERATOR-ACCOUNTANT pager [phone] MICU CAREY Pager numbers [phone] MICU SHOE pager [phone] A-H Romie ICU pager [phone] ICU [place] pager [phone] ICU [place] pager [phone] * Plan of Care - Fouzia Hernández, [...] person. On 05/01/24 EMS transferred patient to [facility] and then was non responsive and hypotensive requiring norepinephrine. EEG noted Gpds and neurology was consulted and reviewed EEG and met criteria status epilepticus. Patient was transferred to [facility] on 05/04 for further neurological medical management. [...] anemia - Acute anemia likely due to PIPE SETTER in the setting of acute illness and [...] . * Treatment Plan - Karrie Sims APRN-ACCOUNTANT - 05/07/2024 8:28 AM EST ICU PLAN [...] person. On 05/01/24 EMS transferred patient to [facility] and then was non responsive and hypotensive requiring norepinephrine. EEG noted Gpds and neurology was consulted and reviewed EEG and met criteria status epilepticus. Patient was transferred to [facility] on 05/04 for further neurological medical management. She was admitted to the MICU for critical care management (See H&P for full admit details and PMH) Last 24 Hours Brain MRI last night. PIRRT started post MRI and clotted off 5 hours after PIRRT. Started propofol given frequent coughing and interfering with PIPE SETTER. Received blood transfusion for acute hemoglobin drop. Passed SBT this morning, however, mental status remains poor Plan - Resume subcutaneous heparin given no active bleeding - Discontinue acyclovir given negative LP culture - Change ceftriaxone to non CLINICAL ACADEMIC ALLERGIST coverage - Discontinue iHD given remained clotting [...] on Chronic anemia - Likely due to PIPE SETTER in the setting of acute illness - [...] 05/04 at OSH -CVC: 05/04 CVC Necessity: PIPE SETTER -Do: 05/04 -NG/OG tube: 05/04 The above plan was discussed on multidisciplinary rounds. I have consulted with Dr. Pratik Young MD regarding the plan of care, including medications. The above note reflects the attending's recommendations. CHRISTINE Armas * Plan of Care - Harish Parry MD - 05/07/2024 1:02 AM EST Patient is coughing frequently which is disrupting the ability to proceed with PIPE SETTER due to pressures. Given the need for PIPE SETTER for clearance post MRI contrast, we will sedate with propofol overnight to suppress cough to allow for clearance and re-evaluate in the AM. Will put her vent back on a rate aswell. Harish Parry MD - PGY-3 Internal Medicine Pager #[phone] * Plan of Care - Josefina Cary [...] Negative Hepatitis B Surface Antigen Resulted From [facility] lab Date Hepatitis B Surface Antigen Status [...] person. On 05/01/24 EMS transferred patient to [facility] and then was non responsive and hypotensive requiring norepinephrine. EEG noted Gpds and neurology was consulted and reviewed EEG and met criteria status epilepticus. Patient was transferred to [facility] on 05/04 for further neurological medical management. [...] 05/04 at OSH -CVC: 05/04 CVC Necessity: PIPE SETTER -Do: 05/04 -NG/OG tube: 05/04 The above plan was discussed on multidisciplinary rounds. I have consulted with Dr. Pratik Young MD regarding the plan of care, including medications. The above note reflects the attending's recommendations. CHRISTINE Arams * (ACP) Advance Care Planning - LOUIS Beckett - 05/05/2024 1:44 PM EST SAMIR obtained copy of patient's HCPOA and Living Will documents. HCPOA # 1: Gonzalo Lopez (son) [phone] HCPOA # 2: Alex Donaldson (friend) [phone] SW will scan these legal documents into the chart and update the demographic sheet. USAMA Beckett LISW 10 [facility] Director Of Sports Medicine [phone] Available on secure chat * Research Note - Alfred Us RCP - 05/05/2024 11:06 AM EST OPTI- Oxygen Research Note Patient is enrolled in the OPTI - Oxygen Clinical Trial. Completed and reviewed ABG. Arterial Blood Gas Saturation: Lab Results Component Value Date/Time [id number] 05/05/2024 05:13 AM SpO2 on the patient monitor at the time ABG was drawn = 100 %. Decision tree: If SaO2 < SpO2 by 1-2% or SaO2 > SpO2 within 5% = Conservative O2 group If SaO2 < SpO2 by 3-5% = Boosted/[place] O2 group If SaO2 and SpO2 differs [...] Progressing * Treatment Plan - Oralia Mary, NAILER OPERATOR-ACCOUNTANT - 05/05/2024 7:47 AM EST ICU PLAN [...] to person.on 05/01/24 EMS transferred patient to [facility] and then was non responsive and hypotensive requiring norepinephrine. EEG noted Gpds and neurology was consulted and reviewed EEG and met criteria status epilepticus. Patient was transferred to [facility] on 05/04 for further neurological medical management. [...] the attending's recommendations. CHRISTINE Braun DNP Pager [phone] [facility] History of Present illness Narrative* Rebeca Gillespie - 05/18/2024 3:02 PM EST 05/18/2024 [facility] cancelled transport, changed to [employer] at 4pm. Informed Brisa BATES ofchange. JANA Lazo Staffing Operations Manager Business Enterprise Officer [phone] * JANA Byrne - 05/18/2024 2:15 PM EST Social Work Final Discharge Plan and Transportation Discharge Disposition: Inpatient Rehab Facility Community Agency Name(s) For Handoff: [facility] Name For Handoff: [facility] Phone For Handoff: Fax For Handoff: Selected Continued Care - Admitted Since 05/04/2024 No services have been selected for the patient. Transportation Transport Request Mode of Transfer: [facility] Name of Discharge Transport Company: [employer] Discharge Transport ETA: 05/18/2024 @ 1630 Patient medically stable for discharge per physician/medical team. Transportation arranged as listed above. Patient will discharge to [facility]. Facility, Patient/Family, Bedside RN, CCM, and medical team are aware and agreeable to transportation time. Social work wi ll remain available to assist as needed. JANA Suazo Multifocal Button Grinder Can be reached by secure chat. * Kin Goodwin PT - 05/18/2024 11:50 AM EST Acute Physical Therapy Treatment Prior Gross Functional Mobility: Current AM-PAC score(s): CURRENT AM-PAC Mobility Raw Score: 7 Based on the above AM-PAC score(s) and PT clinical judgment, patient is a good candidate for discharge to Sn[facility] Facility Barriers to discharge home: Patient needs [...] per pt's request Mobility Assessment/Intervention: Rolling/Turning Mobility [place] Level: Rolling/Turning: maximum assist (25% patient effort) Physical Assist: Rolling/Turnin person assist Bed Features/Set-up: Rolling/Turning: Flat, Friction reducing device Skilled Rationale: Positioning, Sequencing, Hand placement Skilled Intervention/Details: Rolling/Turning: rolling both side for positioning and pressure relieft Scooting Bridging Mobility [place] Level: Scooting/Bridging: dependent (less than 25% patient effort) Physical Assist: Scooting/Bridgin person assist Bed Features/Set-up: Scooting/Bridging: Flat, Friction reducing device Skilled Rationale: Sequencing, Positioning, Hand placement Skilled Intervention/Details: Scooting/Bridging: boost hob for optimal positioning Transfer Assessment/Intervention: Sit to Stand Transfer [place] Level: Sit->Stand: not tested Gait/Functional Mobility Assessment/Intervention: Gait Assessment [place] Level: Gait: unable to assess Stairs Assessment/Intervention: [...] with a railin - Total Assistance CURRENT [facility] Mobility Raw Score: 7 CURRENT [facility] Mobility Functional Limitation: 92.36% Impaired in Basic [...] skilled care performed Assisted by during session: FAMILY PSYCHOLOGIST PPE used during patient interaction: gloves Patient [...] Transportation for discharge arranged Mode of Transfer: [facility] Name of Discharge Transport Company: [employer] Discharge Transport ETA: 05/18/2024 @ 1630 Pick-up from [facility] 0933/A Destination [address] [place] [address] JANA Lazo Staffing Operations Manager Business Enterprise Officer [phone] * Javed Sanchez OT - 05/18/2024 7:50 AM EST Acute Occupational Therapy Treatment Prior Gross Functional Mobility: Current AM-PAC score(s): CURRENT AM-PAC Activity Raw Score: 10 Based on the above AM-PAC score(s), and OT clinical judgment, discharge destination recommendation is: [facility] Facility Barriers to discharge home: Patient needs [...] bed level due to the need for FAMILY PSYCHOLOGIST vitals,meds, and therapy Scooting Bridging Mobility [place] Level: Scooting/Bridging: dependent (less than 25% patient effort) Physical Assist: Scooting/Bridgin person assist Bed Features/Set-up: Scooting/Bridging: Head of bed elevated, Friction reducing device Skilled Rationale: Positioning, Verbal cues, Initiation and execution of task Skilled Intervention/Details: Scooting/Bridging: x1 to HOB for improved positioning for feeding Functional Mobility: Wheelchair Assessment Patient currently uses wheelchair?: No CURRENT [facility] Daily Activity Inpatient Short Form Putting on/Taking Off Lower Body Clothin - Total Assistance Bathin - Total Assistance Toiletin - Total Assistance Putting on/Taking Off Upper Body Clothin - A Lot of Assistance Groomin - A Lot of Assistance Eatin - A Little Assistance CURRENT [facility] Activity Raw Score: 10 CURRENT [facility] Activity Functional Limitation/Modifier: 74.70% Currently Impaired in [...] Upon arrival pt supine in bed wiht FAMILY PSYCHOLOGIST taking vitals but agreeable to skilled therapy [...] skilled care performed Assisted by during session: FAMILY PSYCHOLOGIST PPE used during patient interaction: gloves Patient [...] Medicine Progress Note Patient: Mari Lopez, 1940, [id number] Physician: Leslie Peterson MD, GM8 service Subjective: [...] MICU for status epilepticus now transfered to [facility]. Daily Updates: - Delirium overnight, spaced vitals to q4h while awake - MBS today showing aspiration, following up RELIGIOUS EDUCATION TEACHER recommendations - Will discuss with family results of MBS Dysphagia FEES with RELIGIOUS EDUCATION TEACHER 05/13 with some concerns of aspiration possibly related to NGT and ongoing laryngeal edema. - NGT in place - Nepro at goal 35 cc/hr - MBS today showing aspiration - Following up with RELIGIOUS EDUCATION TEACHER final recommendations - Will discuss GOC with family, if NG in line with GOC will require a different facility JOSE on CKD stage 4, non-oliguric JOSE likely due to ischemic and septic ATN due to septic shock requiring PIPE SETTER this admission. Creatinine stable - Followings Dr. Gilmore (manager logistic) every 6 months Acute blood loss on chronic anemia, stable Macrocytic anemia Acute anemia likely due to PIPE SETTER in the setting of acute illness and [...] Code Status: Full Code Disposition: Transferred to [facility], will likely go to [facility] when medically cleared Discussed with team and attending on rounds. Leslie Peterson MD 05/17/24 Hospital Course: On 05/01/24 EMS transferred patient to [facility] and then she became non responsiveand hypotensive requiring norepinephrine. EEG noted GPDs and neurology was consulted and reviewed EEG who believed it met criteria status epilepticus. Patient was transferred to [facility] on 05/04 for further neurological medical management. She was admitted to the MICU for critical care management. Per H&P: The patient initially presented to the [facility] ED 05/01/24 with AMS found [...] comorbidity Essential hypertension Nicol Judge MD, FACP Manager Physical of Clinical Medicine General Internal Medicine * [...] continues to develop Plan for MBS with RELIGIOUS EDUCATION TEACHER 05/17 [place] [facility] will not accept with DHT, would require PEG for enteral nutrition. Discharge pending medical readiness Will continue to follow for discharge planning and care coordination. Josefina Manning RN, BSN Glove Finisher Available by Secure Chat or [email or web address] * Leslie Peterson MD - 05/16/2024 4:03 PM EST Internal Medicine Progress Note Patient: Mari Lopez, 1940, [id number] Physician: Leslie Peterson MD, GM8 service Subjective: [...] MICU for status epilepticus now transfered to [facility]. Daily Updates: - Feels well overall - Continues to have good UOP, chem grossly stable - Continue IV diuresis today - Follow up results of MBS today - Dispo to [facility] facility in [place] once medically stable -- facility may not [...] line since removed. - Followings Dr. Gilmore (manager logistic) every 6 months - Nephrology consulted, appreciate [...] tube feeds at goal - FEES with RELIGIOUS EDUCATION TEACHER 05/13 with some concerns of aspiration [...] Macrocytic anemia Acute anemia likely due to PIPE SETTER in the setting of acute illness and [...] Code Status: Full Code Disposition: Transferred to [facility], will likely go to [facility] when medically cleared Discussed with team and attending on rounds. Leslie Peterson MD 05/16/24 Hospital Course: On 05/01/24 EMS transferred patient to [facility] and then she became non responsiveand hypotensive requiring norepinephrine. EEG noted GPDs and neurology was consulted and reviewed EEG who believed it met criteria status epilepticus. Patient was transferred to [facility] on 05/04 for further neurological medical management. She was admitted to the MICU for critical care management. Per H&P: The patient initially presented to the [facility] ED 05/01/24 with AMS found [...] comorbidity Essential hypertension Nicol Judge MD, FACP Manager Physical of Clinical Medicine General Internal Medicine * AZAEL Blas - 05/16/2024 11:00 AM EST Speech Language Pathology Attempt Note 05/17/2024 Attempted to complete MBS in fluoro suite. Unable to complete study d/t patient positioning/bodyhabitus. Plan for MBS tomorrow in [facility]. AZAEL Blas Time In: 1100 Time Out: [...] of Care: 1. Diet advancement pending MBS/per RELIGIOUS EDUCATION TEACHER 2. Continue current enteral nutrition regimen: Nepro 1.8 @ 35 mL/hr- provides 840mL volume, 1512kcal, 68g pro, 134g CHO, 611mL free H2O - increase to 1pkt Prosource TF BID - provides additional 80kcal, 22g pro - at minimum recommend 30mL flushes q4 hrs to maintain tube patency 3. If extermination supervisor enteral nutrition is anticipated, recommend transitioning [...] transferred to the floor. Initially presented to [facility] ED 05/01 with AMS. Found [...] not know UBW though reported wt gain PHARMACY TECH CUSTOMER SERVICE. Denied any changes in appetite/intake. Weight records [...] of 25, 60kg Estimated Energy Requirements (kcal/day): 7031-4779 kcal/day (25-30 kcal/kg) Estimated Protein Requirements (g/day): [...] Nazanin Kaye, MPH, RD, LD, CNSC Pager #[phone] * Heladio Prather MD - 05/15/2024 11:49 AM EST Internal Medicine Progress Note Patient: Mari Lopez, 1940, [id number] Physician: Heladio Prather MD, PGY2, GM8 service [...] MICU for status epilepticus now transfered to [facility]. Daily Updates: - Mildly elevated temperature, Tmax 100.8F this morning - Flu/COVID negative - WBC stable, patient without acute symptoms, feeling well overall - Continues to have good UOP, chem grossly stable - Continue IV diuresis today - Per RELIGIOUS EDUCATION TEACHER - plan for NG to be switched for DHT, MBS on Thursday, 05/16 - Dispo to [facility] facility in [place] once medically stable -- facility may not [...] line since removed. - Followings Dr. Gilmore (manager logistic) every 6 months - Nephrology consulted, appreciate [...] tube feeds at goal - FEES with RELIGIOUS EDUCATION TEACHER 05/13 with some concerns of aspiration [...] Macrocytic anemia Acute anemia likely due to PIPE SETTER in the setting of acute illness and [...] Code Status: Full Code Disposition: Transferred to [facility], will likely go to [facility] when medically cleared Discussed with team and attending on rounds. Heladio Prather MD 05/15/24 Hospital Course: On 05/01/24 EMS transferred patient to [facility] and then she became non responsiveand hypotensive requiring norepinephrine. EEG noted GPDs and neurology was consulted and reviewed EEG who believed it met criteria status epilepticus. Patient was transferred to [facility] on 05/04 for further neurological medical management. She was admitted to the MICU for critical care management. Per H&P: The patient initially presented to the [facility] ED 05/01/24 with AMS found to havesevere metabolic derangements (pH 7.0, acute renal failure with uremia, hyperkalemia, acidosis). She was intubated, initiated on broad spectrum antibiotics, and placed on vasopressors after inadequate response to 30 cc/kg IVF resuscitation. CTH on admission reportedly normal (reports not available or included in transfer paperwork, [facility] radiology contacted to push images). An [...] coli UTI, provoked DVT, and JOSE requiring PIPE SETTER who was transitioned to the floor. The [...] GDMT when hemodynamics allow Kevon Lyon MD Administration Manager, Clinical Division of General Internal Medicine * LOUIS Richardson - 05/14/2024 11:40 AM EST Placement Plan Expected Discharge Date: 05/17/2024 Referred Level of Care: IPR Barriers: med readiness; ability for IPR to admit w/ DHT; out-of-town transportation Current Referrals and Status 1. [facility] Inpatient Rehab - accepted/reserved Per [...] stated they will discuss with their medical program specialist on Thursday and let SW know if [...] additional needs/concerns. Main CM/SW Office (Thursday-Thursday, 8:00am-4:30pm): [phone] For any other coverage needs, please consult Shant under Care Management. * Heladio Prather MD - 05/14/2024 10:39 AM EST Internal Medicine Progress Note Patient: Mari Lopez, 1940, [id number] Physician: Heladio Prather MD, PGY2, GM8 service [...] MICU for status epilepticus now transfered to [facility]. Daily Updates: - Net positive 1.7L over last 24 hours - Chemistry largely stable, improved hypernatremia - Will decrease FWF to 100cc q4h - Plan for IV Lasix 20mg x1 today, monitor I/O - Per RELIGIOUS EDUCATION TEACHER - plan for NG to be switched for DHT, MBS on Thursday, 05/16 - Dispo to [facility] facility in [place] once medically stable -- facility may not [...] line since removed. - Followings Dr. Gilmore (manager logistic) every 6 months - Nephrology consulted, appreciate [...] tube feeds at goal - FEES with RELIGIOUS EDUCATION TEACHER 05/13 with some concerns of aspiration [...] Macrocytic anemia Acute anemia likely due to PIPE SETTER in the setting of acute illness and [...] Code Status: Full Code Disposition: Transferred to [facility], will likely go to [facility] when medically cleared Discussed with team and attending on rounds. Heladio Prather MD 05/14/24 Hospital Course: On 05/01/24 EMS transferred patient to [facility] and then she became non responsiveand hypotensive requiring norepinephrine. EEG noted GPDs and neurology was consulted and reviewed EEG who believed it met criteria status epilepticus. Patient was transferred to [facility] on 05/04 for further neurological medical management. She was admitted to the MICU for critical care management. Per H&P: The patient initially presented to the [facility] ED 05/01/24 with AMS found [...] GDMT when hemodynamics allow Kevon Lyon MD Administration Manager, Clinical Division of General Internal Medicine * [...] lymphedema who presented as a transfer from [facility] level of care after she presented with AMS and found to have status epilepticus. Hospital course c/b acute respiratory failure requiring intubation and JOSE requiring PIPE SETTER for which nephrology is consulted. Impression: Oliguric JOSE on CKD 4 - improved Recent b/l Cr ~1.5-1.8 JOSE likely due to ischemic and septic ATN due to septic shock S/p PIPE SETTER now monitoring off - line removed Azotemia [...] monitor sodium daily No urgent indication for PIPE SETTER - line was already removed Will continue [...] page the on- call Neph fellow on [employer]. Joao Shafer DO Clinical Nephrology Fellow, PGY-5 Pager [phone] OBJECTIVE Vitals: BP 145/69 (BP Location: Right [...] Will continue to follow. Evans Cornejo MD [id number] helper electrical Division of Nephrology * Heladio Prather MD - 05/13/2024 1:38 PM EST Internal Medicine Progress Note Patient: Mari Lopez, 1940, [id number] Physician: Heladio Prather MD, PGY2, GM8 service Subjective: Pt seen and evaluated this morning at bedside. She reports that she tolerated ice chips well this morning. Complaining of sore throat but reports topical spray is helping. Eager to try to get NGT removed. Understands plan for FEES this afternoon with RELIGIOUS EDUCATION TEACHER team. Assessment/Plan: Mari Lopez is a 83 y.o. female HTN, hypoparathyroidism, hypothyroidism, BAYRON, gastric bypass (2003), CKD stage 4, HFpEF, and TADEO. Initially admitted to MICU for status epilepticus now transfered to [facility]. Daily Updates: - Net positive 144mL over last 24 hours - Chemistry largely stable - Plan for IV Lasix 20mg x1 today - Pending FEES with RELIGIOUS EDUCATION TEACHER - plan to transition diet and advance as tolerated if able - Dispo to [facility] facility in [place] once medically stable JOSE on CKD stage [...] line since removed. - Followings Dr. Gilmore (manager logistic) every 6 months - Nephrology consulted, appreciate [...] tube feeds at goal - FEES with RELIGIOUS EDUCATION TEACHER 05/13 to determine if NGT can [...] Macrocytic anemia Acute anemia likely due to PIPE SETTER in the setting of acute illness and [...] Code Status: Full Code Disposition: Transferred to [facility], will likely go to [facility] when medically cleared Discussed with team and attending on rounds. Heladio Prather MD 05/13/24 Hospital Course: On 05/01/24 EMS transferred patient to [facility] and then she became non responsiveand hypotensive requiring norepinephrine. EEG noted GPDs and neurology was consulted and reviewed EEG who believed it met criteria status epilepticus. Patient was transferred to [facility] on 05/04 for further neurological medical management. She was admitted to the MICU for critical care management. Per H&P: The patient initially presented to the [facility] ED 05/01/24 with AMS found [...] GDMT when hemodynamics allow Kevon Lyon MD Administration Manager, Clinical Division of General Internal Medicine * JANA Byrne - 05/13/2024 12:48 PM EST Placement Plan Expected Discharge Date: 05/13/2024 Referred Level of Care: IPR Barriers: Medical Readiness and Transport Current Referrals and Status 1. [facility]- Reserved Patient is not medically ready at this time. Patient does not need precert. Brisa FORRESTER, JANA [employer] Button Grinder Can be reached by secure chat. * Shereen López, AZAEL - 05/13/2024 10:30 AM EST Acute Care Speech Language Pathology Treatment Diet Recommendations: Recommended Method of Nutrition: Short-term alternate nutrition Discharge Recommendations: Based on the below outcome measures/assessment score(s) and RELIGIOUS EDUCATION TEACHER clinicaljudgment, discharge destination recommendation is: Deferred to PT/OT recomendations related to mobility Supporting factors for discharge setting: Impaired swallow function limiting nutritional status andsafety with oral intake Acute RELIGIOUS EDUCATION TEACHER Outcomes Tracking Communicate basic wants and [...] Ok for ice chips with RN supervision. RELIGIOUS EDUCATION TEACHER will continue to follow for ongoing dysphagia management. Subjective: Mari was seen at bedside, alert and complaining of back pain. RELIGIOUS EDUCATION TEACHER at bedside to determine readiness for [...] Right leg Lying 94 % roomair Acute RELIGIOUS EDUCATION TEACHER Goals Plan of Care by AZAEL Carvalho at 05/13/2024 10:30 AM Version 1 of 1 Problem: Dysphagia Goal: FEES - Patient will participate in Fiberoptic Endoscopic Evaluation of Swallowing (FEES) study to objectively assess pharyngeal swallow function to most appropriately guide RELIGIOUS EDUCATION TEACHER plan of care Outcome: Ongoing Patient [...] Plan for next session: Ongoing dysphagia interventions RELIGIOUS EDUCATION TEACHER Outcomes: Functional Oral Intake Score: 1 Patient Education/Instruction Learners: Patient Education provided: Dysphagia risk factors, Dysphagia recommendations/impressions Teaching method: Verbal Education/Instruction Learner response: Returns demonstration, Needs review Learning preferences: Auditory Learning considerations: Cognition Speech Language Pathologist: AZAEL Carvalho, [facility] Time In: 1030 Time Out: 1050 Total Visit Time: 20 minutes Total Treatment Time (skilled, billable minutes): 20 minutes Non-billable assistance during session: none Assisted by during session: no one PPE used during patient interaction: gloves Patient location/status at end of session: bed with head of bed elevated Patient alarms at end of session: bed alarm Needs in reach RELIGIOUS EDUCATION TEACHER Evaluation and Treatment Time Swallowing Dysfunction Treatment 30586: 20 Upon discontinuation of Acute Care Speech [...] lymphedema who [facility] a [facility] after she presented with AMS and found to have status epilepticus. Hospital course c/b acute respiratory failure requiring intubation and JOSE requiring PIPE SETTER for which nephrology is consulted. Impression: Oliguric [...] 140 or lower No urgent indication for PIPE SETTER - line was already removed Accurate Is/Os [...] page the on- call Neph fellow on [employer]. Joao Shafer DO Clinical Nephrology Fellow, PGY-5 Pager [phone] OBJECTIVE Vitals: BP 113/71 (BP Location: Left [...] OT clinical judgment, discharge destination recommendation is: [facility] Facility Barriers to discharge home: Patient needs [...] present Location: RUE Mobility Assessment/Intervention: Rolling/Turning Mobility [place] Level: Rolling/Turning: maximum assist (25% patient effort) Physical Assist: Rolling/Turnin person assist Bed Features/Set-up: Rolling/Turning: Flat, Use of bed rail, Friction reducing device Skilled Rationale: Positioning, Sequencing, Hand placement, Verbal cues, Initiation and execution of task Skilled Intervention/Details: Rolling/Turning: x2 to R and L for positioning and toileting Scooting Bridging Mobility [place] Level: Scooting/Bridging: dependent (less than 25% patient effort) Physical Assist: Scooting/Bridgin person assist Bed Features/Set-up: Scooting/Bridging: Flat, Friction reducing device Skilled Rationale: Positioning, Sequencing, Hand placement, Verbal cues, Initiation and execution of task Skilled Intervention/Details: Scooting/Bridging: x1 to HOB CURRENT -[facility] Daily Activity Inpatient Short Form Putting on/Taking Off Lower Body Clothin - Total Assistance Bathin - Total Assistance Toiletin - Total Assistance Putting on/Taking Off Upper Body Clothin - Total Assistance Groomin - A Lot of Assistance Eatin - Total Assistance CURRENT -[facility] Activity Raw Score: 7 CURRENT -[facility] Activity Functional Limitation/Modifier: 92.44% Currently Impaired in [...] on the below outcome measures/assessment score(s) and RELIGIOUS EDUCATION TEACHER clinicaljudgment, discharge destination recommendation is: Pending instumental swallow assessment Acute RELIGIOUS EDUCATION TEACHER Outcomes Tracking Communicate basic wants and [...] Macrocytic anemia Acute anemia likely due to PIPE SETTER in the setting of acute illness and [...] line since removed. - Followings Dr. Gilmore (manager logistic) every 6 months - Nephrology consulted, appreciate [...] lasix for goal even to -500mL Prior RELIGIOUS EDUCATION TEACHER history: NA Current Method of Nutrition: [...] Modality: Amount: Ice Teaspoon x3 Thin Teaspoon, RELIGIOUS EDUCATION TEACHER-fed, Straw x2 teaspoon, x1 straw sip [...] with eyes closed and appearing to fatigue. [place] Swallow Screen: (administered by: DANISH) [place] Swallow Screening Screening Exclusion Criteria: NPO order for other medical/surgical reasons [place] Swallow Screening Result: postpone until no longer [...] allowance of ice chips following oral care. RELIGIOUS EDUCATION TEACHER will continue to follow. Plan for next session: 05/12: good candidate; FEES Patient Education/Instruction Learners: Patient Education provided: Safety, Role of this discipline, Positioning, Dysphagia risk factors, Dysphagiarecommendations/impressions Teaching method: Verbal Education/Instruction Learner response: Applies knowledge Learning preferences: Auditory Learning considerations: Cognition Patient Instruction/Education comments: Patient educated regarding role of RELIGIOUS EDUCATION TEACHER, impressions, instrumental assessments, importance of oral care Acute RELIGIOUS EDUCATION TEACHER Goals Plan of Care by AZAEL Blas at 05/12/2024 9:30 AM Version 1 of 1 Problem: Dysphagia Goal: FEES - Patient will participate in Fiberoptic Endoscopic Evaluation of Swallowing (FEES) study to objectively assess pharyngeal swallow function to most appropriately guide RELIGIOUS EDUCATION TEACHER plan of care Outcome: Ongoing Speech [...] of session: RN aware Needs in reach. RELIGIOUS EDUCATION TEACHER Evaluation and Treatment Time Swallowing Eval 09009: 23 Upon discontinuation of Acute Care Speech Therapy Services or patient discharge from the hospital this note represents the current Speech Therapy Discharge Summary * Heladio Prather MD - 05/12/2024 7:43 AM EST Internal Medicine Progress Note Patient: Mari Lopez, 1940, [id number] Physician: Heladio Prather MD, PGY1, GM8 service [...] MICU for status epilepticus now transfered to [facility]. Daily Updates: - Improved hypernatremia - Will hold off on diuresis today given good UOP yesterday and improved labs without diuresis - RELIGIOUS EDUCATION TEACHER consulted for swallow eval, recommend FEES - Pending FEES will plan to transition diet and advance as tolerated - Dispo to SNF per PT/OT recs (pt with room at [facility]) JOSE on CKD stage 4, non-oliguric JOSE [...] line since removed. - Followings Dr. Gilmore (manager logistic) every 6 months - Nephrology consulted, appreciate [...] Macrocytic anemia Acute anemia likely due to PIPE SETTER in the setting of acute illness and [...] Transferred to 3, will likely go to [facility] when medically cleared Discussed with team and attending on rounds. Heladio Prather MD 05/12/24 Hospital Course: On 05/01/24 EMS transferred patient to [facility] and then she became non responsiveand hypotensive requiring norepinephrine. EEG noted GPDs and neurology was consulted and reviewed EEG who believed it met criteria status epilepticus. Patient was transferred to [facility] on 05/04 for further neurological medical management. She was admitted to the MICU for critical care management. Per H&P: The patient initially presented to the [facility] ED 05/01/24 with AMS found to havesevere metabolic derangements (pH 7.0, acute renal failure with uremia, hyperkalemia, acidosis). She was intubated, initiated on broad spectrum antibiotics, and placed on vasopressors after inadequate response to 30 cc/kg IVF resuscitation. CTH on admission reportedly normal (reports not available or included in transfer paperwork, [facility] radiology contacted to push images). An [...] GDMT when hemodynamics allow Kevon Lyon MD Administration Manager, Clinical Division of General Internal Medicine * [...] lymphedema who [facility] she presented with AMS and found to have status epilepticus. Hospital course c/b acute respiratory failure requiring intubation and JOSE requiring PIPE SETTER for which nephrology is consulted. Impression: Oliguric [...] K Replace Mag No urgent indication for PIPE SETTER Accurate Is/Os Avoid nephrotoxins as able These [...] page the on- call Neph fellow on [employer]. Joao Shafer DO Clinical Nephrology Fellow, PGY-5 Pager [phone] OBJECTIVE Vitals: BP 124/60 (BP Location: Right [...] water flushes as below. No need for PIPE SETTER. Will follow. Evans Cornejo MD [id number] helper electrical Division of Nephrology * Adriana Lima, PT - 05/11/2024 10:40 AM EST Acute Physical Therapy Treatment Prior Gross Functional Mobility: independent Current AM-PAC score(s): CURRENT AM-PAC Mobility Raw Score: 6 Based on the above AM-PAC score(s) and PT clinical judgment, patient is a good candidate for discharge to [facility] Facility Barriers to discharge home: Patient needs [...] onset fatigue noted Mobility Assessment/Intervention: Rolling/Turning Mobility [place] Level: Rolling/Turning: dependent (less than 25% patient effort) Physical Assist: Rolling/Turnin person assist Bed Features/Set-up: Rolling/Turning: Flat, Friction reducing device Skilled Rationale: Verbal cues, Sequencing, Positioning, Technique of activity Skilled Intervention/Details: Rolling/Turning: bilateral rolling while performing laura-care; limited ability to facilitate with UEs Scooting Bridging Mobility [place] Level: Scooting/Bridging: dependent (less than 25% patient effort) Physical Assist: Scooting/Bridgin person assist Bed Features/Set-up: Scooting/Bridging: Flat, Friction reducing device Skilled Rationale: Positioning Supine to Sit Mobility [place] Level: Supine->Sit: dependent (less than 25% patient effort) Physical Assist: Supine->Sit: 2 person assist Bed Features/Set-up: Supine->Sit: Friction reducing device, Head of bed elevated Skilled Rationale: Verbal cues, Technique of activity Skilled Intervention/Details: Supine->Sit: limited ability to initiate with LEs or trunk Sit to Supine Mobility [place] Level: Sit->Supine: dependent (less than 25% patient effort) Physical Assist: Sit->Supine: 2 person assist Bed Features/Set-up: Sit->Supine: Flat Skilled Rationale: Positioning, Sequencing, Technique of activity Skilled Intervention/Details: Sit->Supine: completed return to supine with reverse log roll Transfer Assessment/Intervention: Sit to Stand Transfer [place] Level: Sit->Stand: not tested Outcome Score(s): CURRENT [facility] Basic Mobility Inpatient Short Form Turning over in bed: 1 - Total Assistance Moving from lying on back to sittin - Total Assistance Moving to and from bed to chair: 1 - Total Assistance Sitting/standing from chair: 1 - Total Assistance Walk in hospital room: 1 - Total Assistance Climbing 3-5 steps with a railin - Total Assistance CURRENT [facility] Mobility Raw Score: 6 CURRENT [facility] Mobility Functional Limitation: 100.00% Impaired in Basic [...] OT clinical judgment, discharge destination recommendation is: [facility] Facility Barriers to discharge home: Patient needs [...] positioning, Facilitate postural control, Technique of activity, [id number] assist Grooming Intervention/Details: Increased A due to [...] present Location: Generalized Mobility Assessment/Intervention: Rolling/Turning Mobility [place] Level: Rolling/Turning: dependent (less than 25% patient effort) Physical Assist: Rolling/Turnin person assist Bed Features/Set-up: Rolling/Turning: Flat, Friction reducing device Skilled Rationale: Positioning, Hand placement, Verbal cues, Initiation and execution of task Skilled Intervention/Details: Rolling/Turning: x2 to either side Scooting Bridging Mobility [place] Level: Scooting/Bridging: dependent (less than 25% patient effort) Physical Assist: Scooting/Bridgin person assist Bed Features/Set-up: Scooting/Bridging: Flat, Friction reducing device Skilled Rationale: Positioning, Verbal cues, Initiation and execution of task Skilled Intervention/Details: Scooting/Bridging: x1 to HOB Supine to Sit Mobility [place] Level: Supine->Sit: dependent (less than 25% patient effort) Physical Assist: Supine->Sit: 2 person assist Bed Features/Set-up: Supine->Sit: Head of bed elevated, Use of bed rail, Friction reducing device Skilled Rationale: Positioning, Sequencing, Hand placement, Verbal cues, Finding/maintaining midline positioning Skilled Intervention/Details: Supine->Sit: x1 R side EOB with increased time and A for safety due to weakness Sit to Supine Mobility [place] Level: Sit->Supine: dependent (less than 25% patient effort) Physical Assist: Sit->Supine: 2 person assist Bed Features/Set-up: Sit->Supine: Flat Skilled Rationale: Positioning, Sequencing, Hand placement, Verbal cues, Initiation and execution of task Skilled Intervention/Details: Sit->Supine: x1 back from R side EOB Transfer Assessment/Intervention: Sit to Stand Transfer [place] Level: Sit->Stand: unable to assess Functional Mobility: Wheelchair Assessment Patient currently uses wheelchair?: No CURRENT AM-[facility] Daily Activity Inpatient Short Form Putting on/Taking Off Lower Body Clothin - Total Assistance Bathin - Total Assistance Toiletin - Total Assistance Putting on/Taking Off Upper Body Clothin - Total Assistance Groomin - A Lot of Assistance Eatin - Total Assistance CURRENT AM-[facility] Activity Raw Score: 7 CURRENT AM-[facility] Activity Functional Limitation/Modifier: 92.44% Currently Impaired in [...] Medicine Progress Note Patient: Mari Lopez, 1940, [id number] Physician: Jamaal Khalil MD, PGY1, GM8 service [...] MICU for status epilepticus now transfered to [facility]. Today's Updates: - 10 beat run of VT, hypokalemic and hypomag, s/p repletion - Holding diuresis - Sore throat, given phenol spray - Increase her free water flushes to 200cc q4h - TTE ordered - RELIGIOUS EDUCATION TEACHER consulted for speech and swallow eval, [...] Macrocytic anemia Acute anemia likely due to PIPE SETTER in the setting of acute illness and [...] line since removed. - Followings Dr. Gilmore (manager logistic) every 6 months - Nephrology consulted, appreciate [...] Code Status: Full Code Disposition: Transferred to [facility], will likely go to [facility] when medically cleared Discussed with team and attending on rounds. Jamaal Khalil MD PGY1 [facility] 05/11/24 Hospital Course: On 05/01/24 EMS transferred patient to [facility] and then she became non responsiveand hypotensive requiring norepinephrine. EEG noted GPDs and neurology was consulted and reviewed EEG who believed it met criteria status epilepticus. Patient was transferred to [facility] on 05/04 for further neurological medical management. She was admitted to the MICU for critical care management. Per H&P: The patient initially presented to the [facility] ED 05/01/24 with AMS found [...] GDMT when hemodynamics allow Kevon Lyon MD Administration Manager, Clinical Division of General Internal Medicine * Vy Hightower RN - 05/10/2024 3:22 PM EST Placement Plan Expected Discharge Date: 05/13/24 Referred Level of Care: IPR (per family request) Barriers: Medical readiness Current Referrals and Status 1. [facility] (reserved) The HCPOAs communicated with Joseph [...] the IPR option. SANTINO Mo, RN [facility] Clinical Glove Finisher (p) [phone] Available on secure chat * Vy Hightower RN - 05/10/2024 2:46 PM EST Reason for Consult: Discharge planning Consulted By: Medical team Level(s) of Care Discussed: SNF Patient and/or Yard Switch Operator's Preferred Geographic Area for Discharge: [place] [address] Patient and/or Yard Switch Operator's Preference for Providers to Include? [facility] (preferred choice) 2. [facility] Patient and/or Yard Switch Operator's Preference for Providers to Exclude? 1.N/A Patient and/or Yard Switch Operator's Discussion: Discussed referral process with the patient and/or contact representative. Patient and/or contact representative isagreeable to have placement referral initiated. CM spoke with Primary HCPOA, Gonzalo, and 1st Alternative HCPOA, Alex. She will need ambulance transportation per HCPOAs' request CM went to the patient's room to update, but she was sleeping and the bedside RN stated that she glenys bit confused. SANTINO Mo, RN 10 [facility] Clinical Glove Finisher (p) [phone] Available on secure chat * Jhonatan Horton MD - 05/10/2024 11:53 AM EST Nephrology Inpatient Follow up Note Assessment: 83F with PMH of CKD 4, neurogenic bladder, HTN, obesity s/p gastric bypass, TADEO, COPD, HFpEF, hypothyroidism, DVT/PE, chronic lymphedema who [facility] after she presented with AMS and found to have status epilepticus. Hospital course c/b acute respiratory failure requiring intubation and JOSE requiring PIPE SETTER for which nephrology is consulted. Oliguric JOSE on CKD 4 JOSE likely due to ischemic and septic ATN due to septic shock Acute respiratory failure, on mechanical ventilatoin UTI with E coli. Anemia Seizure disorder Acute encephalopathy Hypocalcemia with normal corrected calcium Hypovitaminosis D Plan/Recommendations: -no indications for PIPE SETTER today -would continue lasix -supportive care per [...] 7.4 (L) 05/06/2024 ICA 4.07 (L) 05/09/2024 [id number] 17.6 (L) 05/05/2024 Lab Results Component Value [...] PHYSICIAN NOTE: Current Hospitalization: Admit Date: 05/04/2024 [facility] Hospital LOS: 6 days Interval History [...] lifestyle modifications. . Ronn Barahona MD, MSCI, [facility], [facility] squad sergeant Division of Pulmonary, Critical Care, and Sleep Medicine * Vy Hightower RN - 05/10/2024 10:28 AM EST Glove Finisher's Assessment and Summary: Overall Assessment: Improving respiratory failure. Ongoing neuro work up. Respiratory Status: On room air A) One intubation, extubated 05/08/24 Nutritional Support: [place] PT/OT Recommendations: SNF ([facility]) Barriers to Discharge: Medical readiness Following: Neurology, Nephrology Discharge Goals: Primary SNF. No discharge date Next Steps: Monitoring progress; will need SNF referral SANTINO Mo, RN 10 [facility] Clinical Glove Finisher (p) [phone] Available on secure chat FYI: Reason for Admission: From OSH intubated and concern for seizures Prior to Admission: ADLs/IADLs (prior admission): Assisted Decision Making (prior admission): Independent DMEs: walker;rollator;shower seat;straight cane;stair lift;blood pressure monitor; incontinence supplies Summary: Lives at a house with roommate. * Ronn Barahona MD - 05/09/2024 1:38 PM EST CRITICAL CARE ATTENDING PHYSICIAN NOTE: Current Hospitalization: Admit Date: 05/04/2024 [facility] Hospital LOS: 5 days Interval History [...] lifestyle modifications. . Ronn Barahona MD, MSCI, [facility], [facility] squad sergeant Division of Pulmonary, Critical Care, and Sleep Medicine * Fouzia Hernández, PT - 05/09/2024 10:52 AM EST Acute Physical Therapy Evaluation Prior Gross Functional Mobility: Current AM-PAC score(s): CURRENT AM-PAC Mobility Raw Score: 6 Based on the above AM-PAC score(s) and PT clinical judgment, patient is a good candidate for discharge to Snf Facility Barriers to discharge home: Patient needs [...] to tactile stimuli Mobility Assessment: Rolling/Turning Mobility [place] Level: Rolling/Turning: dependent (less than 25% patient effort) Physical Assist: Rolling/Turnin person assist Bed Features/Set-up: Rolling/Turning: Flat Skilled Rationale: Sequencing, Hand placement, Verbal cues, Technique of activity, Initiation and execution of task, Cues for increased safety Skilled Intervention/Details: Rolling/Turning: X1 to L/R sideylying to complete dependent pericare and pad exchange; limited to no initiation despite extensive cueing Scooting Bridging Mobility [place] Level: Scooting/Bridging: dependent (less than 25% patient effort) Physical Assist: Scooting/Bridgin person assist Bed Features/Set-up: Scooting/Bridging: Flat Skilled Rationale: Sequencing, Hand placement, Verbal cues, Technique of activity, Initiation and execution of task, Cues for increased safety Skilled Intervention/Details: Scooting/Bridging: X2 to HOB for optimal positioning Supine to Sit Mobility [place] Level: Supine->Sit: dependent (less than 25% patient effort) Physical Assist: Supine->Sit: 2 person assist Bed Features/Set-up: Supine->Sit: Head of bed elevated Skilled Rationale: Sequencing, Hand placement, Verbal cues, Technique of activity, Initiation and execution of task, Cues for increased safety Skilled Intervention/Details: Supine->Sit: Poor initiation; assist for LE advancement and to push trunk to upright Sit to Supine Mobility [place] Level: Sit->Supine: dependent (less than 25% patient [...] tested Transfer Assessment: Sit to Stand Transfer [place] Level: Sit->Stand: not tested Gait/Functional Mobility: Wheelchair Assessment Patient currently uses wheelchair?: No Outcome Score(s): CURRENT [facility] Basic Mobility Inpatient Short Form Turning over in bed: 1 - Total Assistance Moving from lying on back to sittin - Total Assistance Moving to and from bed to chair: 1 - Total Assistance Sitting/standing from chair: 1 - Total Assistance Walk in hospital room: 1 - Total Assistance Climbing 3-5 steps with a railin - Total Assistance CURRENT [facility] Mobility Raw Score: 6 CURRENT [facility] Mobility Functional Limitation: 100.00% Impaired in Basic [...] OT clinical judgment, discharge destination recommendation is: Snf Facility Barriers to discharge home: Patient needs [...] support to increase distal control for task, [id number] assist Grooming Intervention/Details: Encouraged participation in grooming tasks including washing face and hair brushing to challenge UE strength and endurance; limited participation despite verbal, tactile, and positional cues to initiate. Provided PROM with [facility] assist to encourage participation and assess [...] RN skin assessment) Mobility Assessment: Rolling/Turning Mobility [place] Level: Rolling/Turning: dependent (less than 25% patient effort) Physical Assist: Rolling/Turnin person assist Bed Features/Set-up: Rolling/Turning: Flat Skilled Rationale: Positioning, Sequencing, Hand placement, Verbal cues, Tactile cues, Initiation and execution of task Skilled Intervention/Details: Rolling/Turning: facilitated bilateral rolling to complete dependent pericare; total assist to initiate despite verbal and tactile cues to encourage participation Scooting Bridging Mobility [place] Level: Scooting/Bridging: dependent (less than 25% patient effort) Physical Assist: Scooting/Bridgin person assist Bed Features/Set-up: Scooting/Bridging: Flat Skilled Rationale: Positioning, Hand placement, Verbal cues Skilled Intervention/Details: Scooting/Bridging: boosted towards HOB x2 for optimal positioning Supine to Sit Mobility [place] Level: Supine->Sit: dependent (less than 25% patient [...] cues to initiate Sit to Supine Mobility [place] Level: Sit->Supine: dependent (less than 25% patient effort) Physical Assist: Sit->Supine: 2 person assist Bed Features/Set-up: Sit->Supine: Flat Skilled Rationale: Positioning, Sequencing, Verbal cues, Tactile cues, Initiation and execution of task, Cues for increased safety Skilled Intervention/Details: Sit->Supine: x1 from EOB; assist to guide trunk and BLE into supine for safety due to limited participation Transfer Assessment: Sit to Stand Transfer [place] Level: Sit->Stand: not tested Functional Mobility: Outcome Score(s): CURRENT [facility] Daily Activity Inpatient Short Form Putting on/Taking Off Lower Body Clothin - Total Assistance Bathin - Total Assistance Toiletin - Total Assistance Putting on/Taking Off Upper Body Clothin - Total Assistance Groomin - Total Assistance Eatin - Total Assistance CURRENT [facility] Activity Raw Score: 6 CURRENT [facility] Activity Functional Limitation/Modifier: 100.00% Currently Impaired in Daily Activity Currently Impaired in Daily Activity - CN CURRENT [facility] Applied Cognitive Inpatient Short Form Follow 10-15 [...] voice CURRENT HOSPITALIZATION/ICU LOS: Admit Date: 05/04/2024 [facility] Hospital LOS: 4 days Scheduled Meds: [...] lymphedema who presented as a transfer from [facility] level of care after she presented with AMS and found to have status epilepticus. Hospital course c/b acute respiratory failure requiring intubation and JOSE requiring PIPE SETTER for which nephrology is consulted. IMPRESSION Oliguric JOSE on CKD 4 JOSE likely due to ischemic and septic ATN due to septic shock Acute respiratory failure, on mechanical ventilatoin UTI with E coli. Anemia Seizure disorder Acute encephalopathy Hypocalcemia with normal corrected calcium Hypovitaminosis D Urine sediment (05/05/24): Dissolving granular casts, CaOx monohydrate crystals, WBCs, RTECs, debris PLAN No acute PIPE SETTER need. Reassess daily. Monitor labs and UOP [...] Steiner MD DENNIS Nephrology Fellow, PGY-5 [facility] Pager: [phone] Renal Attending Attestation: Nicho Castle M.D. personally [...] warm and dry, no cyanosis. [facility] Relevant Data: Lab Results Component [...] (L) 05/04/2024 Lab Results Component Value Date [id number] 17.6 (L) 05/05/2024 * Pratik Young MD - 05/07/2024 6:50 PM EST Critical Care Progress Note INTERVAL HISTORY: Responding to some commands. Unable to keep circuit for CRRT due to clots CURRENT HOSPITALIZATION/ICU LOS: Admit Date: 05/04/2024 [facility] Hospital LOS: 3 days Scheduled Meds: [...] Pratik Young MD MPH * Martín Alford HYDRAMATIC MECHANIC - 05/07/2024 5:32 PM EST Vent Settings: [...] lymphedema who presented as a [facility] after she presented with AMS and found to have status epilepticus. Hospital course c/b acute respiratory failure requiring intubation and JOSE requiring PIPE SETTER for which nephrology is consulted. IMPRESSION Oliguric [...] without access. Will need new access for PIPE SETTER. No urgent need although likely suboptimal clearance [...] Steiner MD DENNIS Nephrology Fellow, PGY-5 [facility] Pager: [phone] Renal Attending Attestation: I, Nicho Monae M.D. [...] (L) 05/04/2024 Lab Results Component Value Date [id number] 17.6 (L) 05/05/2024 * Tata Sethi RPH - 05/06/2024 10:56 PM EST Department of Pharmacy Renal Documentation Note Patient: Mari Lopez Room/Bed: [facility] Assessment and Plan: The patient was [...] any questions, Name: Tata Sethi RPH Phone: [phone] Date/Time: 05/06/2024 10:56 PM * Pratik Young MD - 05/06/2024 4:00 PM EST Critical Care Progress Note INTERVAL HISTORY: Responding to some voice. Off vasopressors CURRENT HOSPITALIZATION/ICU LOS: Admit Date: 05/04/2024 [facility] Hospital LOS: 2 days Scheduled Meds: [...] Hightower RN - 05/06/2024 10:13 AM EST Glove Finisher's Assessment and Summary: Overall Assessment: Ongoing AMS, respiratory failure, OJSE, and sepsis (UTI) Respiratory Status: Intubated (ay OSH) A) Passed SBT, but AMS impedes extubation Nutritional Support: NG PT/OT Recommendations: Pending CAM-ICU: Positive iHD Barriers to Discharge:Medical readiness Following: Neurology, Nephrology Discharge Goals: CM Primary SNF. No discharge date Next Steps: Monitoring progress; no definitive discharge plan has been established at this time. SANTINO Mo, RN 10 [facility] Clinical Glove Finisher (p) [phone] Available on secure chat FYI: Reason for [...] Dosing wt: 105#/47.7 kg - IBW EEN: 4445-3051 (28-33 kcal/kg IBW) EPN: 72-119 (1.5-2.5 g/kg IBW) Malnutrition Statement: Does the patient meet criteria for malnutrition: Unable to assess (pt intubated) *Based on [employer] and ASPEN Indicators to Diagnose Malnutrition (AAIM) criteria (2012) Pt remains at nutrition risk due to clinical status, JOSE on CKD4, gastric bypass, AMS, c/f status epilepticus, acute respiratory failure, ileus, TF requirement. Grazyna TURCIOS, LD, [facility] Pager #[phone] * Josefina Cary MD - 05/06/2024 9:31 [...] lymphedema who presented [facility] a [facility] after she presented with AMS and found to have status epilepticus. Hospital course c/b acute respiratory failure requiring intubation and JOSE requiring PIPE SETTER for which nephrology is consulted. IMPRESSION Oliguric [...] Josefina Cary MD Division of Nephrology [facility] Pager [phone] OBJECTIVE Vitals: BP 129/61 Pulse 82 Temp [...] the study is ended. Nicho Mcmillan MD Administration Manager Department of Neurology, Epilepsy Division * Taryn Lyon, [facility] - 05/06/2024 7:30 AM EST Department of Pharmacy Renal Documentation Note Patient: Mari Lopez Room/Bed: [facility] Assessment and Plan: The patient was [...] any questions, Name: Taryn Lyon RPH Phone: [phone] Date/Time: 05/06/2024 7:31 AM * Nicho Mcmillan [...] the study is ended. Nicho Mcmillan MD Administration Manager Department of Neurology, Epilepsy Division * Get Sheriff, Pharm Student - 05/05/2024 2:55 PM EST Department of Pharmacy Admission Medication Reconciliation Note Patient: Mari Lopez Room/Bed: [facility]/E I have reviewed the patient's home medication list with the following sources Patient's family member/caregiver (Alex Atkinsonshhaid, ), Dispense Report, and OARRs. I have [...] with Patient's family member/caregiver. Patient's listed pharmacy ([facility], ) was contacted and a voicemail [...] Medication Reconciliation Note Patient: Mari Lopez Room/Bed: [facility] I have reviewed the home medication list with the Student. The home medication list status is: complete. A call to the pharmacy was not needed because the information compiled from listed sources corroborates the patient/caregiver interview. All changes to the home medication list have been updatedin IHIS. Updated PHARMACY TECH CUSTOMER SERVICE Med List: Prior to Admission Medications Prescriptions [...] Based on recent office visit (03/16/24 @ [facility]), patient was to start ferrous sulfate 325 [...] [facility] Phone #: [phone] Date/Time: 05/06/2024 12:34 PM * Pratik Young MD - 05/05/2024 1:17 PM EST Critical Care Progress Note INTERVAL HISTORY: Unresponsive on vent. Freq ectopy on monitor. CURRENT HOSPITALIZATION/ICU LOS: Admit Date: 05/04/2024 [facility] Hospital LOS: 1 day Scheduled Meds: [...] Pratik Young MD MPH * Shruthi Lyon, HYDRAMATIC MECHANIC - 05/05/2024 10:32 AM EST Discharge Planning [...] C but was completing outpatient PT at [facility] for recent shoulder surgery. Alex reports that she does work everyday and therefore, patient would not have 24/7 supervision at discharge. Will need PT/OT referrals. Patient remains on vent at this time. CM will continue to follow with medical team to coordinate discharge planning. Initial Discharge Planning Expected Discharge Disposition: Snf Facility (vs HHC. \) Transportation Available for Discharge: Ambulance, Private Vehicle, Family or Friend Anticipated DME: unknown at this time Anticipated Services at Discharge: Physical Therapy, Occupational Therapy, Outpatient follow up Patient Assessment Completed: Initial Legal Next of Kin Does the patient have a Guardian?: No Spouse: No Adult Child(melissa), List All Adult Children: Yes Name and Contact information: Gonzalo Lopez- [phone] Would you like to add additional adult [...] the patient on Anticoagulation? : No [id number] [place] [address] - [phone] [facility] [phone] [facility] [id number] Living Environment and Support System Is the [...] themselves at home? : Unable to assess Bow Machine Operator Does the patient or contact representative express financial concerns? : Unable to assess Shruthi Duenas RRT Clinical Staffing Operations Manager Please note that I am a float Staffing Operations Manager. For primary Staffing Operations Managerservice advocate contact, or for up to date coverage, please contact FAISAL/SAMIR main office at [phone]. * Sheila Faria RCP - 05/05/2024 7:54 [...] Pharmacokinetics Progress Note Patient: Mari Lopez Room/Bed: [facility] Assessment and Plan: Based upon drug level assessment and interpretation (not at steady state), no changes to vancomycindose or dosing interval are indicated at this time. Further adjustments will be made based on PIPE SETTER plan. A pharmacist will continue to follow [...] [facility] Phone: [phone] Date/Time: 05/05/2024 7:24 AM * Jennifer Cloud [facility] - 05/04/2024 10:55 PM EST Department of Pharmacy Anticoagulant/Antithrombotic Progress Note Patient: Mari Lopez Room/Bed: [facility]E Assessment/Plan: The patient's most recent renal function [...] [facility] Phone: [phone] Date/Time: 05/04/2024 10:55 PM * Jennifer Cloud [...] any questions, Name: Jennifer Cloud RPH Phone: [phone] Date/Time: 05/04/2024 10:38 PM * Jennifer Cloud RPH - 05/04/2024 9:08 PM EST Department of Pharmacy Outside Facility Transfer Note Patient: Mari Lopez Room/Bed: [facility]E Patient has transferred from an outside hospital ([facility]). [facility] the following antimicrobial, antiepileptic, and anticoagulant medications were received by the patient prior to arrival at [facility]: Antimicrobials: Vancomycin 500mg on 05/04 @ 1533 Antiepileptics: Keppra 4500mg on 05/04 @ 1451 Please feel free to contact me with any further questions. Name: Jennifer Cloud RPH Phone #: [phone] Date/Time: 05/04/2024 9:08 PM documented in this encounterMcCullough-[facility] Hospital Discharge instructions* Discharge Instructions* Leslie Peterson [...] Miryam MATA. Please follow up with your manager logistic, Dr. Gilmore, even if it is sooner than your regularly scheduled every 6 months. Please follow up with a assistant professor of education to assess your heart failure with preserved ejection fraction and abnormal motion of your heart muscle seen on echocardiography (ultrasound of your heart. It is okay to follow up with Dr. Jackson or see a new [facility] assistant professor of education. Please call cardiology at [phone] to schedule a follow up visit. Please follow up with a neurologist to follow up about your seizures. Please call Neurology [phone] to schedule an appointment Please review the first page of your after-visit summary for a detailed list of medication changes,follow-up instructions and scheduled appointments. Leslie Peterson MD documented in this [facility]02-12-2025 Hospital course Narrative* Leslie Peterson MD - [...] AMS. On 05/01/24 EMS transferred patient to [facility] and then she became non responsiveand hypotensive requiring norepinephrine. EEG noted GPDs and neurology was consulted and reviewed EEG who believed it met criteria status epilepticus. Patient was transferred to [facility] on 05/04 for further neurological medical management. She was admitted to the MICU for critical care management. Per H&P: The patient initially presented to the [facility] ED 05/01/24 with AMS found [...] On the floor she was followed by RELIGIOUS EDUCATION TEACHER for dysphagia. She underwent FEES 05/13 [...] with discharge back to her facility in [place]. Physical Exam on Day of Discharge: Gen: [...] MG TABS Follow-up: ADOLFO Aguillon [address] [place] [phone] Follow up Please call to schedule a [...] of this patient. Nicol Judge MD, FACP Manager Physical of Clinical Medicine Division of General Internal Medicine and Geriatrics documented in this encounterMcCullough-[facility]02-11-20[facility] Procedure note* Shahram Nuñez, RELIGIOUS EDUCATION TEACHER - 05/17/2024 11:24 AM ESTAssociated Order(s): [...] on the below outcome measures/assessment score(s) and RELIGIOUS EDUCATION TEACHER clinicaljudgment, discharge destination recommendation is: SNF. [...] and Impaired cognitive skills limiting independence. Acute RELIGIOUS EDUCATION TEACHER Outcomes Tracking Communicate basic wants and [...] Comments: On 05/01/24 EMS transferred patient to [facility] and thenshe became non responsive and hypotensive requiring norepinephrine. EEG noted GPDs and neurology was consulted and reviewed EEG who believed it met criteria status epilepticus. Patient was transferred to [facility] on 05/04 for further neurological medical management. She was admitted to the MICU for critical care management. Per H&P: The patient initially presented to the [facility] ED 05/01/24 with AMS found [...] laryngeal edema and NGT. Consider transitioning to [facility]. Subjective information: Patient arrived at [facility] via transport. Reports significant back pain when [...] teaspoon, single cup drink, and straw Varibar [place] Barium: teaspoon, single cup drink, and straw [...] of Cues/Supervision: intermittent supervision Assistance: nurse/aide Acute RELIGIOUS EDUCATION TEACHER Goals Plan of Care by AZAEL [...] oropharyngeal swallow function to most appropriately guide RELIGIOUS EDUCATION TEACHER plan of care Outcome: Met Time In: 0940 Time Out: 1020 Total Visit Time: 40 minutes Total Treatment Time (skilled, billable minutes): 40 minutes RELIGIOUS EDUCATION TEACHER Evaluation and Treatment Time MBS/Motion Fluoroscopic Swallowing Eval 41097: 40 Speech Language Pathologist: AZAEL Blas Time In: 40 Time Out: 1020 Total Visit Time: 40 minutes Total Treatment Time (skilled, billable minutes): 40 minutes Non-billable assistance during session: none Assisted by during session: Kavya Fuentes RELIGIOUS EDUCATION TEACHER, Imani GANNON PPE used during patient interaction: gloves Patient location/status at end of session: (transport bed) Patient alarms at end of session: none altered RELIGIOUS EDUCATION TEACHER Evaluation and Treatment Time MBS/Motion Fluoroscopic Swallowing Eval 52198: 40 Upon discontinuation of Acute Care Speech [...] on the below outcome measures/assessment score(s) and RELIGIOUS EDUCATION TEACHER clinicaljudgment, discharge destination recommendation is: Pending instrumental swallow assessment. Acute RELIGIOUS EDUCATION TEACHER Outcomes Tracking Communicate basic wants and [...] admitted on 05/04/2024 as a transfer from [facility]. Initially presented to the [facility] ED 05/01/24 with AMS found [...] activity Factors That Relieve Pain: repositioning Prior RELIGIOUS EDUCATION TEACHER history: No prior RELIGIOUS EDUCATION TEACHER history per chart review Current Method [...] Read by: AZAEL Carvalho Scope Serial #: [id number] Feeder Name: Cindy Looney Topical Anesthetic: None [...] (NZSS) for Pneumonia. Dysphagia. 2018 May;33(1):115-122. doi: 10.1007/[id number]-y. Epub 2016Nov 26. PMID: [id number]. Evans Secretion Scale (LAVERNE) The Evans Secretion [...] in dysphagic patients. Eur Arch Otorhinolaryngol. 2017 Pradip;274(1):4083-2703. doi: 10.1007/[id number]. Epub 2016Jun 15. PMID: [id number]. Consistencies Tested: Consistencies Tested Ice chip: 1/2 [...] the larynx or out of the airway [place] Pharyngeal Residue Severity Rating Scale: (Manuela Fields., Ilana Petersen, & Marty, S. (2015). The tamera pharyngeal residue severity rating scale: an anatomically defined and image-based tool. Dysphagia, 30, 521-529.) Ice Chips Valleculae Severity Rating: Trace (1-5%), Trace Coating of the Mucosa Pyriform Sinus Rating: Trace (1-5%), Trace Coating of Mucosa Thin Liquids (IDDSI 0) Valleculae Severity Rating: Trace (1-5%), Trace Coating of the Mucosa Pyriform Sinus Rating: Trace (1-5%), Trace Coating of Mucosa Mildly Thick Liquids (IDDSI 2)/[place] Valleculae Severity Rating: Trace (1-5%), Trace Coating [...] 05/13: good prognosis, ongoing dypshagia management Acute RELIGIOUS EDUCATION TEACHER Goals Plan of Care by AZAEL Carvalho at 05/13/2024 10:30 AM Version 1 of 1 Problem: Dysphagia Goal: FEES - Patient will participate in Fiberoptic Endoscopic Evaluation of Swallowing (FEES) study to objectively assess pharyngeal swallow function to most appropriately guide RELIGIOUS EDUCATION TEACHER plan of care Outcome: Ongoing Speech Language Pathologist: AZAEL Carvalho, BCS-S Board Certified Specialist in Swallowing and Swallowing Disorders Available via Epic Chat Time In: 1200 Time Out: 1235 Total Visit Time: 35 minutes Total Treatment Time (skilled, billable minutes): 35 minutes RELIGIOUS EDUCATION TEACHER Evaluation and Treatment Time FEES/Endoscopic Swallowing Eval 31198: 35 Swallowing Dysfunction Treatment 95389: 20 Non-billable assistance during session: none Assisted [...] with the EEG interpretation Mulugeta Barker MD Administration Manager, Department of Neurology, Epilepsy Section [facility] Cosigned by Mulugeta Barker MD at 05/09/2024 5:30 PM EST * Nicho Mcmillan MD - 05/06/2024 9:08 AM ESTAssociated Order(s): EEG MICROSOFT DYNAMICS DEVELOPER MONITORING STUDY NAME: Continuous video-EEG recording REFERRING [...] correlation advised. Nicho Mcmillan MD EEG Attending Administration Manager Department of Neurology, Epilepsy Division [facility] * CHRISTINE Braun - 05/05/2024 6:06 PM ESTAssociated Order(s): Lumbar Puncture Post-Procedure Diagnose(s): Status epilepticus Lumbar Puncture Procedure Start: 14:07 EST Procedure Stop: 14:25 EST Performed by: CHRISTINE Braun Authorized by: CHRISTINE Braun Location of procedure: ICU Room number: 460E Name of M48/M60 Tank Driver: Kasey Jane RN Julian Protocol Written consent obtained Risks and benefits [...] to verify the correct patient, procedure, equipment, lan support specialist and site/side marked as required Anesthesia Local [...] hour. CHRISTINE Braun documented in this encounterOS[facility] Consult note* Joshua Gallardo RN - [...] Team notified. PICC pager [phone] PIV pager [phone] * Ynig Reeder RN - 05/11/2024 6:17 PM EST [...] not needed PICC pager [phone] PIV pager [phone] * Joel Calderon DO - 05/10/2024 11:55 [...] to reach POA Additional note: PICC pager [phone] PIV pager [phone] * Joel Calderon DO - 05/09/2024 12:39 [...] 83 yo female initially presented to the [facility] ED 1/26/25 with worsening AMS [...] A&O x 3). She initially presented to [facility] ED 05/01/2024 where she was [...] and diffuse moderate to severe encephalopathy. Recommend extermination supervisor monitoring for further characterization of concern [...] CONSULTATION NOTE Reason for Consultation: JOSE requiring PIPE SETTER Referring Provider: Pratik Young MD Hospital Day: 1 ASSESSMENT AND PLAN: 83F with PMH of CKD 4, neurogenic bladder, HTN, obesity s/p gastric bypass, TADEO, COPD, HFpEF, hypothyroidism, DVT/PE, chronic lymphedema who presented as a transfer from [facility] after she presented with AMS and found to have status epilepticus. Hospital course c/b acute respiratory failure requiring intubation and JOSE requiring PIPE SETTER for which nephrology is consulted. IMPRESSION Oliguric [...] to septic shock No urgent indication for PIPE SETTER given stable electrolytes and volume status. Will continue to monitor. Follow-up vitamin D levels Accurate Is/Os Avoid nephrotoxins as able Please direct all questions/concerns to Qgenda --> Internal Medicine --> Nephrology --> Ross Consults Josefina Cary MD Division of Nephrology [facility] Pager [phone] SUBJECTIVE 83F with PMH of CKD 4, neurogenic bladder, HTN, obesity s/p gastric bypass, TADEO, COPD, HFpEF, hypothyroidism, DVT/PE, chronic lymphedema who presented as a transfer from [facility] after she presented with AMS and found to have status epilepticus. Hospital course c/b acute respiratory failure requiring intubation and JOSE requiring PIPE SETTER. Unclear what pt's baseline Cr is and how many sessions of PIPE SETTER she received at the OSH given lack ofrecords, although she had a session of HD on 05/02 and another on 05/04. Pt appears to be followingwith a manager logistic but no records in the system. At [...] A&O x 3). She initially presented to [facility] ED 05/01/2024 where she was [...] and diffuse moderate to severe encephalopathy. Recommend halfway monitoring for further characterization of concern for [...] and UTI. Recommendations: - check ECG; if DC interval < 200ms, would discontinue Keppra in favor of Vimpat 100mg BID givenher renal function - cEEG placed - CTH now, MRI brain once EEG no longer needed and removed - nephrology consult to evaluate for PIPE SETTER Thank you for the consultation. If you [...] 150's and creat 7, patient started on PIPE SETTER). Of note also had been taking Flexeril 10 mg TID and Ambien 10 mg qday per pharmacist. For seizure prophylaxis will avoid Keppra due toCKD and start Vimpat maintenance. Will continue EEG for today. Gerardo Rogers M.D. Attending Neurologist documented in this encounterOS[facility]01-29-[facility]25 [facility]01-29-[facility]25 History and physical note* Paulino Whitehead [...] epilepticus. The patient initially presented to the [facility] ED 05/01/24 with AMS found [...] out of state. He is traveling to [place]. PAST MEDICAL, SURGICAL, FAMILY, and SOCIAL HISTORY [...] Labs-ABGs Labs-CBC WBC/Hgb/Hct/Plts: 17.39/7.9/24.7/96 (05/04 2107) Labs-Chem 7([facility]) Bun/Creat/Cl/CO2/Glucose: 49/3.28/104/22/105 (05/04 2107) Na/K+/Phos/Mg/Ca: 135/4.5/3.8/1.5/-- (05/04 [...] in the setting of underlying CKD. Initiatedon PIPE SETTER 05/02. - Nephrology consulted for continuation of PIPE SETTER. The patient received HD 05/04. - Renally [...] was discussed with Dr. Gannon, the attending range conservationist for the MICU. Paulino Whitehead MD Cosigned by Pratik Young MD at 05/05/2024 8:08 AM EST documented in this encounterMcCull[facility] Telephone encounter Note* Telephone Encounter - Olga Dillard RN - 05/02/2024 9:24 AM EST Friend (Alex) calls to let provider's office know that patient is currently at [facility] in the ICU for sepsis and kidney failure. Nothing further needed at this time. Closing encounter. Olga Dillard RN [facility]01-27-2025 Miscellaneous Notes* Telephone Encounter - Olga Dillard RN - 05/02/2024 9:24 AM EST Friend (Alex) calls to let provider's office know that patient is currently at [facility] in the ICU for sepsis and kidney failure. Nothing further needed at this time. Closing encounter. Olga Dillard RN documented in this encounterMercy Health [facility]iff[facility]01-26-2025 Evaluation note* Diagnosis Onset Date Resolution Status [...] 7:11pm Chronic kidney disease deleted 2024 7:11pm [facility] Work Phone: 1(313) 495-661012-11-2024 NoteHNO ID: [id number] Author: MIRYAM OROZCO APRN.ACCOUNTANT Service: ? Author Type: Nurse Practitioner Type: [...] total shoulder arthroplasty on 02/22/2024. Which facility: [facility] Date of visit: 02/25/2024-03/02/2024 Diagnosis: S/P [...] study ordered for 03/04/2024, will follow-up with [facility] pulmonary medicine to go over results. Discharge with PT at [facility]. Instructed to follow-up with surgeon, Dr. Carson. Placed on doxycycline due to arm pain to cover for possible cellulitis where IV was placed. Venous Doppler was negative for any thrombosis in the arm. Needs to complete bone density. Current symptoms: Had follow up with Surgeon, still wearing sling until March 21, still doing PT twice weekly, at [facility]. Doing well since surgery. Next following [...] CONDYLEANDPLATU MEDIALANDLAT COMPARTMENTS 1990 bilateral total knee s([place]) ARTHRP KNE CONDYLEANDPLATU MEDIALANDLAT COMPARTMENTS 10/24/2004 bilateral [...] reverse total shoulder. Dr. Klaus Omalley with [facility] Ortho ALLERGIES Bactrim [Sulfamethoxazole-Trimethoprim], Ibuprofen, Kefzol [Cefazolin [...] ounces of liq (more content not included)... [facility]12-02-2024 Telephone encounter Note* Telephone Encounter - [...] 90 days. Authorizing Provider: MULUGETA JENNINGS APRN.CNP [facility]12-02-2024 Miscellaneous Notes* Telephone Encounter - Mulugeta Jennings [...] up to 90 days. Piedad Aguayo Diogenes [facility] March 07, 2024 10:17 AM documented in this encounterMercy Health [facility]12-02-2024 Telephone encounter Note * Telephone Encounter - [...] up to 90 days. Piedad Aguayo Diogenes [facility] March 07, 2024 10:17 AM [facility]11-27-2024 [facility]11-21-2024 [facility]11-08-2024 Telephone encounter Note* Telephone Encounter - Alex Lackey MA - 02/12/2024 10:08 AM EST OV note and form faxed. Alex Lackey MA [facility]11-08-2024 Miscellaneous Notes* Telephone Encounter - Alex Lackey [...] Completed form needs to be faxed to [facility] at [phone]. Pt scheduled for Left reverse total shoulder arthroplasty on 02/22/[address] Klaus Omalley. Pt has PAT on 02/18/24 at [facility]. Pt last OV on 01/28/24 with Miryam Orozco for routine follow up. Route to [place] when form completed for processing documented in this encounterMercy Health [facility]11-08-2024 Telephone encounter Note * Telephone Encounter - Lizy Capone MD - 02/12/2024 10:00 AM EST Form done; send with copy of 01/27 note Lizy Capone MD [facility]11-08-2024 Telephone encounter Note* Telephone Encounter - Alex Lackey MA - 02/12/2024 8:57 AM EST Type of letter/form/fax request - medical clearance request for surgery Form received from fax on 1 floor and placed on MD desk (Dr. Capone) for completion. Completed form needs to be faxed to [facility] at [phone]. Pt scheduled for Left reverse total shoulder arthroplasty on 02/22/[address] Klaus Omalley. Pt has PAT on 02/18/24 at [facility]. Pt last OV on 01/28/24 with Miryam Orozco for routine follow up. Route to [facility] when form completed for processing [facility]10-24-2024 Instructions* Patient Instructions* Miryam Orozco APRN.CNP - 01/28/2024 9:20 AM EDT Get repeat fasting labs in 6 months prior to next visit Continue to take all medication as prescribed Keep scheduled appointments with specialists. Flu and covid given today Follow up in 6 months or sooner as needed. documented in this encounterMercy Health [facility]10-24-2024 History of Present illness Narrative* Miryam Orozco [...] having left shoulder surgery in February with [facility], Dr. Omalley. LLE: Lasix 40 mg for [...] CONDYLE&PLATU MEDIAL&LAT COMPARTMENTS 1990 bilateral total knee s([place]) ARTHRP KNE CONDYLE&PLATU MEDIAL&LAT COMPARTMENTS 10/24/04 bilateral total knee revisions DELIVERY ONLY , low cervical CHOLECYSTECTOMY COLONOSCOPY FLX DX W/COLLJ SPEC WHEN PFRMD 11/17/2017 Colonoscopy DEBRIDEMENT SUBCUTANEOUS TISSUE 20 SQ CM/< 02/17/07 LEFT LEG DEBRIDEMENT SUBCUTANEOUS TISSUE 20 SQ CM/< [id number] LEFT LEG DEBRIDEMENT SUBCUTANEOUS TISSUE 20 SQ CM/< [id number] LEFT LEG DEBRIDEMENT SUBCUTANEOUS TISSUE 20 SQ CM/< [id number] LEFT LEG DEBRIDEMENT SUBCUTANEOUS TISSUE 20 SQ CM/< [id number] LEFT LEG DEBRIDEMENT SUBCUTANEOUS TISSUE 20 SQ [...] mg 24 hr tablet Take by mouth. Hhqekdqcbop-Lpdeqnjch-Uhv C-Mn (GLUCOSAMINE CHONDROITIN MAXSTR) 500-400 mg cap Take 1 capsule by mouth three times daily. COMPOUNDED PRESCRIPTION Stair lift DAILY-LUISITO tablet TAKE 1 TABLET BY MOUTH ONCE DAILY. hedlfby-hyujeaorg-rsjokim D3 (CALCIUM 500+D) 500 mg(1,250mg) -200 unit [...] YR, HIGH DOSE, TRIVALENT (FLUZONE HIGH-DOSE) - Stir COVID-19 VACCINE AGE 12+ YR (COMIRNATY) Follow-up in 6 months with labs Discussed treatment plan and patient voices understanding. Patient's questions answered appropriately. Medications and potential side effects were discussed and patient voices understanding. Miryam Orozco APRN.CJ This note was partially generated using [employer] voice recognition system. Note was reviewed for accuracy. There may be minor misspellings or grammar miscues with [employer] voice recognition. documented in this encounterMercy Health [facility]10-24-2024 NoteHNO ID: [id number] Author: MIRYAM OROZCO APRN.CNP Service: ? Author [...] having left shoulder surgery in February with [facility], Dr. Omalley. LLE: Lasix 40 mg for [...] and thrombophlebitis of femoral vein (deep) (superficial) ([facility]) Unspecified sleep apnea PAST SURGICAL HISTORY Procedure Laterality Date ANESTHESIA HERNIA REPAIR LOWER ABDOMEN NOS 04/2004,05/11 gortex put in on 05/11 then taken out06/08 ARTHRP KNE CONDYLEANDPLATU MEDIALANDLAT COMPARTMENTS 1990 bilateral total knee s([place]) ARTHRP KNE CONDYLEANDPLATU MEDIALANDLAT COMPARTMENTS 10/24/04 bilateral total knee revisions DELIVERY ONLY , low cervical CHOLECYSTECTOMY COLONOSCOPY FLX DX W/COLLJ SPEC WHEN PFRMD 11/17/2017 Colonoscopy DEBRIDEMENT SUBCUTANEOUS TISSUE 20 SQ CM/< 02/17/07 LEFT LEG DEBRIDEMENT SUBCUTANEOUS TISSUE 20 SQ CM/< [id number] LEFT LEG DEBRIDEMENT SUBCUTANEOUS TISSUE 20 SQ CM/< [id number] LEFT LEG DEBRIDEMENT SUBCUTANEOUS TISSUE 20 SQ CM/< [id number] LEFT LEG DEBRIDEMENT SUBCUTANEOUS TISSUE 20 SQ CM/< [id number] LEFT LEG DEBRIDEMENT SUBCUTANEOUS TISSUE 20 SQ [...] UNDERWEAR FOR WOMEN XL (more content not included)...[facility]09-30-2024 Telephone encounter Note* Telephone Encounter - Michael Diop - 01/04/2024 8:38 AM EDT Lvm for patient to call back and schedule an appointment with Dr. Jackson. [facility]09-30-2024 Miscellaneous Notes* Telephone Encounter - Michael Diop [...] knee replacement. Weston Branch documented in this encounterMercy Health [facility]09-26-2024 Telephone encounter Note * Telephone Encounter - Michael Diop - 12/31/2023 8:14 AM EDT Lvm for patient to call back and schedule an appointment with Dr. Jackson. [facility]09-24-2024 Telephone encounter Note* Telephone Encounter - Michael Diop - 12/29/2023 10:40 AM EDT Lvm for patient to call back and schedule an appointment with Dr. Jackson for knee pain. [facility]09-24-2024 Telephone encounter Note* Telephone Encounter - Weston Humphrey - 12/29/2023 8:53 AM EDT Patient is being referred to Dr. Jackson by Dr. Lokesh Mc for left knee pain. Please reach out to patient and assist with scheduling a consultation. 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 Weston Branch [facility]09-12-2024 Telephone encounter Note* Telephone Encounter - Analia Gracia RN - 12/17/2023 3:43 PM EDT Pt called and is notified of providers message. Pt voices understanding. Analia Gracia RN [facility]09-12-2024 Miscellaneous Notes* Telephone Encounter - Analia Gracia [...] some form exercise. Keep scheduled appointments with manager logistic. Please let me know what she prefers regarding her thyroid. Thank you Miryam Orozco APRN.CJ documented in this encounterMercy Health [facility]09-12-2024 Telephone encounter Note * Telephone Encounter - Miryam Orozco APRN.CNP - 12/17/2023 3:31 PM EDT Lab orders have been placed. Miryam Orozco APRN.CNP [facility]09-12-2024 Telephone encounter Note* Telephone Encounter - Lilo Maurer LPN - 12/17/2023 3:00 PM EDT Patient returned call, given below results/recommendations, verbalized understanding. Patient wanting to stay on same dose of Synthroid and recheck labs in 6-8 weeks. Lilo Maurer LPN [facility]09-12-2024 NoteHNO ID: [id number] Author: AMADA VELASCO LPN Service: ? Author [...] and suicidal ideas. The patient is not nervous/anxious.[facility]09[facility] History of Present illness Narrative* Amada [...] [facility] [place] [facility] Today's Date: 12/17/2023 Name: Mari Lopez [...] - Initial HPI (Obtained by Avis Marrufo APRN.ACCOUNTANT ). From 03/2022 - She previously inquired [...] Tylenol (Acetaminophen), Aspirin Opioids: Tramadol, Hydrocodone (eg Ilfeld) Data Reviewed Today: Allergies: ALLERGIES Allergen Reactions [...] and assume there are 5 lumbar-type vertebrae. Typewriter Repairer: CHEIKH Transcribe Date/Time: Apr 29 2022 10:41A Dictated by : ANA MONK MD This examination was interpreted and the report reviewed and electronically signed by: KENDALL GOMEZ MD on Apr 29 2022 2:36PM EST X-ray Lt. Knee 10/2023 X-ray Rt. Knee 10/2023 X-ray Bilateral Shoulder 01/2023 Right shoulder: Suboptimal positioning. There appears to be severe glenohumeral osteoarthritis vryeugpk-yw-eksc contact. Faint chondrocalcinosis at the glenohumeral joint. Ossific density projectingover the humeral head/neck is suboptimally evaluated due to poor positioning though may represent aintra- articular body. Mild degenerative change acromioclavicular joint. Acromiohumeral interval is maintained. No acute fracture. Left shoulder: Suture anchor in the humeral head prior rotator cuff repair. Severe glenohumeral osteoarthritis with rjxu-ty-kkyw contact. Intra-articular bodies medial to the humeral [...] bony destructive process. Lumbar: There are five wef-ian-qpfsyvk lumbar vertebrae. No acute fracture or subluxations [...] report bilateral flank pain. She states her assistant professor of education, PCP and manager logistic advised her pain is coming from her [...] - Suprascapular Nerve under ultrasound guidance LEFT-SIDED Tuna Purse Seiner Needed: Radiofrequency Ablation - YES Anticoagulant - Hold Needed: NO HOLD REQUIRED FOR THIS PROCEDURE Anticoagulant - Currently Taking: None Allergies (relevant): None Scheduling - Mobility (Can Patient independently transfer on/off an OR or Procedure table?): YES (May schedule at any location) Scheduling - Additional Info: Schedule after January 13 - she will call when ready Studies: None Functional Pentecostal: NONE Referrals: Orthopedics ([phone]) Follow-up: 3 months for medications CAREY Depending [...] MD Pain Management [facility] documented in this encounterMercy Health [facility]09-12-2024 Telephone encounter Note * Telephone Encounter - Minna Blue LPN - 12/17/2023 8:46 AM EDT TC to pt. LM to call office, ask for triage nurse to get results. Minna Blue LPN [facility]09-11-2024 Telephone encounter Note* Telephone Encounter - Miryam Orozco APRN.ACCOUNTANT - 12/16/2023 7:25 PM EDT Can you [...] some form exercise. Keep scheduled appointments with manager logistic. Please let me know what she prefers regarding her thyroid. Thank you Miryam Orozco APRN.ACCOUNTANT [facility]09-10-2024 NoteHNO ID: [id number] Author: ROQUE DELGADO MD Service: ? Author Type: Physician Type: Progress Notes Filed: 12/17/2023 09:15 Note Text: [facility] [place] [facility] Today's Date: 12/17/2023 Name: Mari Lopez [...] - Initial HPI (Obtained by Avis Marrufo APRN.ACCOUNTANT ). From 03/2022 - She previously inquired [...] (Right) Nearly 10 (more content not included)... [facility]09-09-2024 Telephone encounter Note* Telephone Encounter - Gonzalo Holland - 12/14/2023 1:31 PM EDT Patient has been rescheduled with Dr. Delgado in [place] on 12/16 at 8:45am. Gonzalo Holland [facility]09-09-2024 Miscellaneous Notes* Telephone Encounter - Gonzalo Holland - 12/14/2023 1:31 PM EDT Patient has been rescheduled with Dr. Delgado in [place] on 12/16 at 8:45am. Gonzalo Holland * [...] elaborate or confirm Was Patient Referred to [facility]/Seek Emergency Treatment (Y/N): n Did Patient Agree (Y/N): n/a Was An Attempt Made To Transfer The Patient To The Office (Y/N): n Were You Able To Reach Someone At The Office (Y/N): n/a If Yes - Patient Was Transferred To (Caregivers Name): n/a If No - Which [facility] Leadership Collar Closer Lockstitch Did You Speak With Regarding This Patient: n/a Was an appointment scheduled (Y/N): n Reason patient was requesting visit (RFV/signs and symptoms/diagnosis) : n/a Person calling if other than patient: self Return call to if other than patient: self Best contact number: [phone] Thank you, Linda Singh December 14, 2023 12:40 PM documented in this encounterMercy Health [facility]09-09-2024 Telephone encounter Note * Telephone Encounter - Sofía Crowe - 12/14/2023 1:03 PM EDT This patient does not have mychart- but was scheduled for a VV Please reschedule her to in person as we do not schedule phone call visits any longer [facility]09-09-2024 Telephone encounter Note* Telephone Encounter - Sofía [...] elaborate or confirm Was Patient Referred to [facility]/Seek Emergency Treatment (Y/N): n Did Patient Agree (Y/N): n/a Was An Attempt Made To Transfer The Patient To The Office (Y/N): n Were You Able To Reach Someone At The Office (Y/N): n/a If Yes - Patient Was Transferred To (Caregivers Name): n/a If No - Which [facility] Leadership Collar Closer Lockstitch Did You Speak With Regarding This Patient: n/a Was an appointment scheduled (Y/N): n Reason patient was requesting visit (RFV/signs and symptoms/diagnosis) : n/a Person calling if other than patient: self Return call to if other than patient: self Best contact number: [phone] Thank you, Linda Shettydanish December 14, 2023 12:40 PM [facility]09-09-2024 Telephone encounter Note* Telephone Encounter - Miryam Orozco APRN.CNP - 12/14/2023 11:31 AM EDT Order for physical therapy has been placed. Will be faxed to [facility]. Miryam Orozco APRN.CNP [facility]09-09-2024 Miscellaneous Notes* Telephone Encounter - Miryam Orozco APRN.CNP - 12/14/2023 11:31 AM EDT Order for physical therapy has been placed. Will be faxed to [facility]. Miryam Orozco APRN.ACCOUNTANT * Telephone Encounter - Minna Blue LPN - 12/14/2023 10:36 AM EDT Pt came to window requesting a order for Physical Therapy due to frequent falls. She would like it faxed to [facility]. Minna Blue LPN documented in this encounterMercy Health [facility]09-09-2024 Telephone encounter Note * Telephone Encounter - Minna Blue LPN - 12/14/2023 10:36 AM EDT Pt came to window requesting a order for Physical Therapy due to frequent falls. She would like it faxed to [facility]. Minna Blue LPN [facility]09-06-2024 Telephone encounter Note* Telephone Encounter - Lizy Capone MD - 12/11/2023 10:01 AM EDT OK to refill as ordered Lizy Capone MD [facility] [facility]09[facility]06[facility]24 Miscellaneous Notes* Telephone Encounter - Lizy Capone [...] 11, 2023 9:32 AM documented in this encounterMer[facility] Telephone encounter Note * Telephone Encounter - [...] Isabell Dove December 11, 2023 9:32 AM [facility]08-30-2024 NoteHNO ID: [id number] Author: STARR SOLANO MD Service: ? Author [...] L1 SAB0 IAB0 Ectopic0 Multiple0 Live Births0 Dressmaker Garment Fitter History LMP: Postmenopausal Age at Menarche: Age at First : 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) No date: Unspecified sleep apnea PAST SURGICAL HISTORY 04/2004,05/11: ANESTHESIA HERNIA REPAIR LOWER ABDOMEN NOS Comment: gortex put in on 05/11 then taken out06/08 1990: ARTHRP TOMMY CONDYLEANDPLATU MEDIALANDLAT COMPARTMENTS Comment: bilateral total knee s([place]ik[place]) 10/24/04 : ARTHRP MELONYE CONDYLEANDPLATU MEDIALANDLAT COMPARTMENTS Comment: bilateral total knee revisions No date: DELIVERY ONLY Comment: , low cervical No date: CHOLECYSTECTOMY 11/17/2017: COLONOSCOPY FLX DX W/COLLJ SPEC WHEN PFRMD Comment: Colonoscopy 02/17/07: DEBRIDEMENT SUBCUTANEOUS TISSUE 20 SQ CM/< Comment: LEFT LEG [id number]: DEBRIDEMENT SUBCUTANEOUS TISSUE 20 SQ CM/< Comment: LEFT LEG [id number]: DEBRIDEMENT SUBCUTANEOUS TISSUE 20 SQ CM/< Comment: LEFT LEG [id number]: DEBRIDEMENT SUBCUTANEOUS TISSUE 20 SQ CM/< Comment: LEFT LEG [id number]: DEBRIDEMENT SUBCUTANEOUS TISSUE 20 SQ CM/< Comment: [...] mg 24 hr tablet Take by mouth. Devmbuennhk-Whlbdufol-Azg C- (more content not included)...[facility]08-30-2024 History of Present illness Narrative* Starr [...] L1 SAB0 IAB0 Ectopic0 Multiple0 Live Births0 Dressmaker Garment Fitter History LMP: Postmenopausal Age at Menarche: Age at First : 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) No date: Unspecified sleep apnea PAST SURGICAL HISTORY 04/2004,05/11: ANESTHESIA HERNIA REPAIR LOWER ABDOMEN NOS Comment: gortex put in on 05/11 then taken out06/08 1991: ARTHRP KNE CONDYLE&PLATU MEDIAL&LAT COMPARTMENTS Comment: bilateral total knee s([place]) 10/24/04 : ARTHRP KNE CONDYLE&PLATU MEDIAL&LAT COMPARTMENTS Comment: bilateral total knee revisions No date: DELIVERY ONLY Comment: , low cervical No date: CHOLECYSTECTOMY 11/17/2017: COLONOSCOPY FLX DX W/COLLJ SPEC WHEN PFRMD Comment: Colonoscopy 02/17/07: DEBRIDEMENT SUBCUTANEOUS TISSUE 20 SQ CM/< Comment: LEFT LEG [id number]: DEBRIDEMENT SUBCUTANEOUS TISSUE 20 SQ CM/< Comment: LEFT LEG [id number]: DEBRIDEMENT SUBCUTANEOUS TISSUE 20 SQ CM/< Comment: LEFT LEG [id number]: DEBRIDEMENT SUBCUTANEOUS TISSUE 20 SQ CM/< Comment: LEFT LEG [id number]: DEBRIDEMENT SUBCUTANEOUS TISSUE 20 SQ CM/< Comment: [...] mg 24 hr tablet Take by mouth. Oxnfwoltama-Zszopffxx-Qee C-Mn (GLUCOSAMINE CHONDROITIN MAXSTR) 500-400 mg cap Take 1 capsule by mouth three times daily. COMPOUNDED PRESCRIPTION Stair lift DAILY-LUISITO tablet TAKE 1 TABLET BY MOUTH ONCE DAILY. ghfqwkf-zlwdygmmc-agtjuon D3 (CALCIUM 500+D) 500 mg(1,250mg) -200 unit [...] which included preparing to see the patient, hcvl-xg-shvr patient care, completing clinical documentation, obtaining and/or reviewing separately obtained history, performing a medically appropriate examination, and counseling and educating the patient/family/caregiver. Strar Broderick MD documented in this encounterMer[facility]08-[facility]24 Telephone encounter Note * Telephone Encounter - Jorje Nagel LPN - 11/18/2023 11:25 AM EDT Attempted to contact patient to follow up after procedure. Left a brief message asking patient to return call if they have any questions or concerns. Jorje Nagel LPN [facility]08-14-2024 Miscellaneous Notes* Telephone Encounter - Jorje Nagel LPN - 11/18/2023 11:25 AM EDT Attempted to contact patient to follow up after procedure. Left a brief message asking patient to return call if they have any questions or concerns. Jorje Nagel LPN documented in this encounterMercy Health [facility]08-12-2024 Nurse Note* Rom Cano LPN - 11/16/2023 [...] ambulatory method. Patient left in good condition. [facility]08-12-2024 Nurse Note* Rom Cano LPN - 11/16/2023 [...] tablePatient s procedure was performed in an [facility] Procedure room. Pause completed at each [...] Downing LPN - 11/16/2023 9:58 AM EDT Tuna Purse Seiner's Name: Javed Sawyer Are you on a [...] to receive one? n documented in this encounterMer[facility]08-12-2024 Instructions* Patient Instructions* Rom Cano LPN - [...] emergency care and why. documented in this encounterMercy Health [facility]08-12-2024 Nurse Note* Amada Velasco LPN - 11/16/2023 10:22 AM EDT Procedure to be performed: Unilateral Right SUPRASCAPULAR RADIOFREQUENCY ABLATION Patient was wheeled on stretcher from pre op bay to procedure room and assisted onto the procedure tablePatient s procedure was performed in an [facility] Procedure room. Pause completed at each [...] allergies Procedure Start: 1044 Procedure End: 1054 [facility]08-12-2024 NoteHNO ID: [id number] Author: ROQUE DELGADO MD Service: ? Author Type: Physician Type: Progress Notes Filed: 11/16/2023 11:10 Note Text: [facility] Date: 11/16/2023 Patient name: Mari [...] or double vision) Respiratory: Negative (No Cough, Fyhbhxrdu-wt-bszzcj, Dyspnea on exertion, wheezing) Cardiovascular: Negative (No [...] CONDYLEANDPLATU MEDIALANDLAT COMPARTMENTS Comment: bilateral total knee s([place]ik[place]) 10/24/04 : ARTHRP KNE CONDYLEANDPLATU MEDIALANDLAT COMPARTMENTS Comment: bilateral total knee revisions No date: DELIVERY ONLY Comment: , low cervical No date: CHOLECYSTECTOMY 11/17/2017: COLONOSCOPY FLX DX W/COLLJ SPEC WHEN PFRMD Comment: Colonoscopy 02/17/07: DEBRIDEMENT SUBCUTANEOUS TISSUE 20 SQ CM/< Comment: LEFT LEG [id number]: DEBRIDEMENT SUBCUTANEOUS TISSUE 20 SQ CM/< Comment: LEFT LEG [id number]: DEBRIDEMENT SUBCUTANEOUS TISSUE 20 SQ CM/< Comment: LEFT LEG [id number]: DEBRIDEMENT SUBCUTANEOUS TISSUE 20 SQ CM/< Comment: LEFT LEG [id number]: DEBRIDEMENT SUBCUTANEOUS TISSUE 20 SQ CM/< Comment: [...] 75 mg tablet Take (more content not included)...[facility]08-12-2024 History of Present illness Narrative* Roque Delgado MD - 11/16/2023 10:13 AM EDT [facility] Date: 11/16/2023 Patient name: Mari [...] or double vision) Respiratory: Negative (No Cough, Lgfnlhczb-ho-nhlidm, Dyspnea on exertion, wheezing) Cardiovascular: Negative (No [...] and thrombophlebitis of femoral vein (deep) (superficial) ([facility]) No date: Unspecified sleep apnea PAST SURGICAL HISTORY 04/2004,05/11: ANESTHESIA HERNIA REPAIR LOWER ABDOMEN NOS Comment: gortex put in on 05/11 then taken out06/08 1990: ARTHRP KNE CONDYLE&PLATU MEDIAL&LAT COMPARTMENTS Comment: bilateral total knee s([place]ikado) 10/24/04 : ARTHRP KNE CONDYLE&PLATU MEDIAL&LAT COMPARTMENTS Comment: bilateral total knee revisions No date: DELIVERY ONLY Comment: , low cervical No date: CHOLECYSTECTOMY 11/17/2017: COLONOSCOPY FLX DX W/COLLJ SPEC WHEN PFRMD Comment: Colonoscopy 02/17/07: DEBRIDEMENT SUBCUTANEOUS TISSUE 20 SQ CM/< Comment: LEFT LEG [id number]: DEBRIDEMENT SUBCUTANEOUS TISSUE 20 SQ CM/< Comment: LEFT LEG [id number]: DEBRIDEMENT SUBCUTANEOUS TISSUE 20 SQ CM/< Comment: LEFT LEG [id number]: DEBRIDEMENT SUBCUTANEOUS TISSUE 20 SQ CM/< Comment: LEFT LEG [id number]: DEBRIDEMENT SUBCUTANEOUS TISSUE 20 SQ CM/< Comment: [...] mg 24 hr tablet Take by mouth. Knkxvispdjt-Qdboxqupj-Btq C-Mn (GLUCOSAMINE CHONDROITIN MAXSTR) 500-400 mg cap Take 1 capsule by mouth three times daily. COMPOUNDED PRESCRIPTION Stair lift DAILY-LUISITO tablet TAKE 1 TABLET BY MOUTH ONCE DAILY. wclukgh-rjgxrnihp-anzjhev D3 (CALCIUM 500+D) 500 mg(1,250mg) -200 unit [...] appropriate Assessment and Plan: As noted above Julian protocol documentation / Pre-Procedure Checklist: Consent: Obtained [...] [facility] * Mago Downing LPN - [...] patient is not nervous/anxious. documented in this encounterMercy Health [facility]08-12-2024 NoteHNO ID: [id number] Author: MAGO DOWNING LPN Service: ? Author [...] and suicidal ideas. The patient is not nervous/anxious.[facility] 11-16-2023 Nurse Note* Mago Downing LPN - 11/16/2023 9:58 AM EDT Tuna Purse Seiner's Name: Javed Sawyer Are you on a [...] are you scheduled to receive one? n [facility]08-05-2024 Instructions* Patient Instructions* Miryam Orozco APRN.CNP - 11/09/2023 9:32 AM EDT Hold amlodipine/norvasc 5mg Monitor blood pressure, goal 130/80 or less Continue to take current medications Get repeat labs completed, prior to next office visit Keep scheduled appointments with specialists Monitor left lower leg, call the office if you notice any redness or skin is hot to touch documented in this encounterMercy Health [facility]08-05-2024 History of Present illness Narrative* Miryam Orozco [...] Was hospitalized recently due to fecal impaction, [facility]. Doing well since discharge. Taking Miralax [...] CONDYLE&PLATU MEDIAL&LAT COMPARTMENTS Comment: bilateral total knee s(Mikado) 10/24/04 : ARTHRP KNE CONDYLE&PLATU MEDIAL&LAT COMPARTMENTS Comment: bilateral total knee revisions No date: DELIVERY ONLY Comment: , low cervical No date: CHOLECYSTECTOMY 11/17/2017: COLONOSCOPY FLX DX W/COLLJ SPEC WHEN PFRMD Comment: Colonoscopy 02/17/07: DEBRIDEMENT SUBCUTANEOUS TISSUE 20 SQ CM/< Comment: LEFT LEG [id number]: DEBRIDEMENT SUBCUTANEOUS TISSUE 20 SQ CM/< Comment: LEFT LEG [id number]: DEBRIDEMENT SUBCUTANEOUS TISSUE 20 SQ CM/< Comment: LEFT LEG [id number]: DEBRIDEMENT SUBCUTANEOUS TISSUE 20 SQ CM/< Comment: LEFT LEG [id number]: DEBRIDEMENT SUBCUTANEOUS TISSUE 20 SQ CM/< Comment: [...] mg 24 hr tablet Take by mouth. Ydglcqntcia-Vcczpqaik-Btu C-Mn (GLUCOSAMINE CHONDROITIN MAXSTR) 500-400 mg cap Take 1 capsule by mouth three times daily. COMPOUNDED PRESCRIPTION Stair lift DAILY-LUISITO tablet TAKE 1 TABLET BY MOUTH ONCE DAILY. spgjmef-djhkxbvrb-iwimquk D3 (CALCIUM 500+D) 500 mg(1,250mg) -200 unit [...] APRN.CNP This note was partially generated using Klocwork recognition system. Note was reviewed for accuracy. There may be minor misspellings or grammar miscues with CityOdds voice recognition. documented in this encounterMercy Health [facility]08-05-2024 NoteHNO ID: [id number] Author: MIRYAM OROZCO APRN.CNP Service: ? Author [...] Was hospitalized recently due to fecal impaction, [facility]. Doing well since discharge. Taking Miralax [...] and thrombophlebitis of femoral vein (deep) (superficial) ([facility]) No date: Unspecified sleep apnea PAST SURGICAL HISTORY 04/2004,05/11: ANESTHESIA HERNIA REPAIR LOWER ABDOMEN NOS Comment: gortex put in on 05/11 then taken out06/08 1991: ARTHRP TOMMY CONDYLEANDPLATU MEDIALANDLAT COMPARTMENTS Comment: bilateral total knee s([place]ikado) 10/24/04 : ARTHRP TOMMY CONDYLEANDPLATU MEDIALANDLAT COMPARTMENTS Comment: bilateral total knee revisions No date: DELIVERY ONLY Comment: , low cervical No date: CHOLECYSTECTOMY 11/17/2017: COLONOSCOPY FLX DX W/COLLJ SPEC WHEN PFRMD Comment: Colonoscopy 02/17/07: DEBRIDEMENT SUBCUTANEOUS TISSUE 20 SQ CM/< Comment: LEFT LEG [id number]: DEBRIDEMENT SUBCUTANEOUS TISSUE 20 SQ CM/< Comment: LEFT LEG [id number]: DEBRIDEMENT SUBCUTANEOUS TISSUE 20 SQ CM/< Comment: LEFT LEG [id number]: DEBRIDEMENT SUBCUTANEOUS TISSUE 20 SQ CM/< Comment: LEFT LEG [id number]: DEBRIDEMENT SUBCUTANEOUS TISSUE 20 SQ CM/< Comment: [...] 1,000 mg by mouth (more content not included)...[facility]07-24-2024 Telephone encounter Note* Telephone Encounter - [...] No 9. Does this procedure require a forklift driver? Yes If yes, has patient been notified that a forklift driver is needed and must be present [...] dose of the COVID vaccine.) Gonzalo Holland [facility]07-24-2024 Miscellaneous Notes* Telephone Encounter - Gonzalo Holland [...] No 9. Does this procedure require a forklift driver? Yes If yes, has patient been notified that a forklift driver is needed and must be present [...] COVID vaccine.) Gonzalo Holland documented in this encounterMercy [facility]07-23-2024 Telephone encounter Note * Telephone Encounter - Sofía Crowe - 10/27/2023 4:19 PM EDT ----- Message from Francine De Souza sent at 10/27/2023 4:09 PM EDT ----- Regarding: Spine & Pain / Roque Delgado) / Procedure / Injection Contact: Spine & Pain / Roque Delgado) / Procedure / Injection Patient has been identified by name and Date of (Y/N): y Patient: Mrai Lopez Date of : 1940 Provider for this encounter: Dr Delgado Reason for the call/escalation: called to sched injection in R shoulder w/ Dr Delgado Person calling if other than patient: n/a Return call to if other than patient: n/a Best contact number: [phone] Thank you, Francine De Souza October 27, 2023 4:09 PM [facility]07-23-2024 Miscellaneous Notes* Telephone Encounter - Sofía Crowe [...] other than patient: n/a Best contact number: [phone] Thank you, Francine Nolvia October 27, 2023 4:09 PM documented in this encounterMercy [facility]06-24-2024 Telephone encounter Note * Telephone Encounter - Lizy Cpaone MD - 09/28/2023 1:29 PM EDT OK to refill as ordered Lizy Capone MD [facility]06-24-2024 Miscellaneous Notes* Telephone Encounter - Lizy Capone [...] Thank you. Kayla Castro. documented in this encounterMercy Health [facility]06-24-2024 Telephone encounter Note * Telephone Encounter - [...] 01/28/2024 Please advise. Thank you. Kayla Castro. [facility]06-17-2024 Telephone encounter Note* Telephone Encounter - Miryam [...] was identified. 09/21/2023 by Miryam Orozco APRN.CNP [facility]06-17-2024 Miscellaneous Notes* Telephone Encounter - Miryam Orozco [...] Thank you. Quynh Sexton. documented in this encounterMercy Health [facility]06-17-2024 Telephone encounter Note * Telephone Encounter - [...] 01/28/2024 Please advise. Thank you. Quynh Sexton. [facility]05-23-2024 Telephone encounter Note* Telephone Encounter - Sofía Crowe - 08/27/2023 3:02 PM EDT ----- Message from Aaliyah Hoffman sent at 08/27/2023 2:59 PM EDT ----- Regarding: Spine/Tgzb-Ohh-Ylnolbrpb for Shoulder Patient: Mari Lopez Date of : 1940 Primary Care Provider: Lizy Capone MD Patient has been identified by name and Date of (Y/N): y Patient: Mari Lopez Date of : 1940 Provider for this encounter: Lizy Capone MD Reason for the call/escalation: Patient is wanting to do R shoulder injection with delgado Was Patient Referred to [facility]/Seek Emergency Treatment (Y/N): n/a Did Patient Agree (Y/N): n/a Was An Attempt Made To Transfer The Patient To The Office (Y/N): n/a Were You Able To Reach Someone At The Office (Y/N): n/a If Yes - Patient Was Transferred To (Caregivers Name): n/a If No - Which [facility] Leadership Collar Closer Lockstitch Did You Speak With Regarding This Patient: n/a Was an appointment scheduled (Y/N): n Reason patient was requesting visit (RFV/signs and symptoms/diagnosis) : injection Person calling if other than patient: n/a Return call to if other than patient: n/a Best contact number: [phone] Thank you, Aaliyah Hoffman August 27, 2023 2:59 PM [facility]05-23-2024 Miscellaneous Notes* Telephone Encounter - Sofía Crowe - 08/27/2023 3:02 PM EDT ----- Message from Aaliyah Hoffman sent at 08/27/2023 2:59 PM EDT ----- Regarding: Spine/Bmuc-Pzk-Vzrmvqdbu for Shoulder Patient: Mari Lopez Date of : 1940 Primary Care Provider: Lizy Capone MD Patient has been identified by name and Date of (Y/N): y Patient: Mari Lopez Date of : 1940 Provider for this encounter: Lizy Capone MD Reason for the call/escalation: Patient is wanting to do R shoulder injection with delgado Was Patient Referred to [facility]/Seek Emergency Treatment (Y/N): n/a Did Patient Agree (Y/N): n/a Was An Attempt Made To Transfer The Patient To The Office (Y/N): n/a Were You Able To Reach Someone At The Office (Y/N): n/a If Yes - Patient Was Transferred To (Caregivers Name): n/a If No - Which [facility] Leadership Collar Closer Lockstitch Did You Speak With Regarding This Patient: n/a Was an appointment scheduled (Y/N): n Reason patient was requesting visit (RFV/signs and symptoms/diagnosis) : injection Person calling if other than patient: n/a Return call to if other than patient: n/a Best contact number: [phone] Thank you, Aaliyah Hoffman August 27, 2023 2:59 PM documented in this encounterMercy [facility]05-10-2024 Instructions* Patient Instructions* Keyana Greenberg PA-C - 08/14/2023 9:49 AM EDT Activity as tolerated Use Ice and/or heat as tolerated as needed documented in this encounterMercy Health [facility]05-10-2024 NoteHNO ID: [id number] Author: KEYANA GREENBERG PA-C Service: ? Author Type: Physician M48/M60 Tank Driver Type: Progress Notes Filed: 08/14/2023 09:58 Note [...] or double vision) Respiratory: Negative (No Cough, Uhpooqocw-vq-qmzyxg, Dyspnea on exertion, wheezing) Cardiovascular: Negative (No [...] Suprascapular Nerve under fluoroscopic guidance RIGHT-SIDED ? Tuna Purse Seiner Needed: Nerve Blocks - YES (Exception: Occipital [...] ([place]) [facility] 08-14-2023 History of Present illness Narrative* Keyana [...] or double vision) Respiratory: Negative (No Cough, Aqioksrxf-df-yqrggq, Dyspnea on exertion, wheezing) Cardiovascular: Negative (No [...] - Suprascapular Nerve under fluoroscopic guidance RIGHT-SIDED Tuna Purse Seiner Needed: Nerve Blocks - YES (Exception: Occipital [...] ([place]) [facility] documented in this encounterMercy Health [facility]04-17-2024 Instructions* Patient Instructions* Miryam Orozco APRN.CNP - 07/22/2023 1:01 PM EDT Get repeat lab in 3 months to check kidney function Get repeat fasting labs in 6 months prior to next office visit. Continue to take all medication as prescribed Keep scheduled appointments with specialists. Follow up in 6 months or sooner as needed. documented in this encounterMercy Health [facility]04-17-2024 History of Present illness Narrative* Miryam Orozco APRN.ACCOUNTANT - 07/22/2023 12:40 PM EDT This is a 83 year old female who presents today with: Patient presents with: Follow Up: 3 month follow up HISTORY OF PRESENT ILLNESS: Mari Lopez is a 83 year old female. Patient presents with: Follow Up: 3 month follow up 3 month follow up Was hospitalized recently due to fecal impaction, [facility]. Doing well since discharge. Taking Miralax [...] daily. CKD4: Following with Nephrology, Dr. Acosta [facility], switched to Dr. Gilmore. HTN: Taking [...] CONDYLE&PLATU MEDIAL&LAT COMPARTMENTS 1990 bilateral total knee s([place]ikado) ARTHRP KNE CONDYLE&PLATU MEDIAL&LAT COMPARTMENTS 10/24/04 bilateral total knee revisions DELIVERY ONLY , low cervical CHOLECYSTECTOMY COLONOSCOPY FLX DX W/COLLJ SPEC WHEN PFRMD 11/17/2017 Colonoscopy DEBRIDEMENT SUBCUTANEOUS TISSUE 20 SQ CM/< 02/17/07 LEFT LEG DEBRIDEMENT SUBCUTANEOUS TISSUE 20 SQ CM/< [id number] LEFT LEG DEBRIDEMENT SUBCUTANEOUS TISSUE 20 SQ CM/< [id number] LEFT LEG DEBRIDEMENT SUBCUTANEOUS TISSUE 20 SQ CM/< [id number] LEFT LEG DEBRIDEMENT SUBCUTANEOUS TISSUE 20 SQ CM/< [id number] LEFT LEG DEBRIDEMENT SUBCUTANEOUS TISSUE 20 SQ [...] mg 24 hr tablet Take by mouth. Nnlidgvthpz-Ymjgamhhj-Qtb C-Mn (GLUCOSAMINE CHONDROITIN MAXSTR) 500-400 mg cap Take 1 capsule by mouth three times daily. COMPOUNDED PRESCRIPTION Stair lift DAILY-LUISITO tablet TAKE 1 TABLET BY MOUTH ONCE DAILY. awtirwe-qbsawqsem-ofojkpj D3 (CALCIUM 500+D) 500 mg(1,250mg) -200 unit [...] Gait normal. Sensation grossly intact. Latest Ref [facility] 07/16/2023 Protein, Total 6.3 - 8.0 g/dL [...] - Lab results will be faxed to manager logistic. - COMPREHENSIVE METABOLIC PANEL - COMPREHENSIVE METABOLIC [...] discussed and patient voices understanding. Miryam Orozco APRN.ACCOUNTANT This note was partially generated using [employer] voice recognition system. Note was reviewed for accuracy. There may be minor misspellings or grammar miscues with [employer] voice recognition. documented in this encounterMercy Health [facility]04-10-2024 Nurse Note* Sheila Carlson LPN - 07/15/2023 [...] tablePatient s procedure was performed in an [facility] Procedure room. Pause completed at each [...] Velasco LPN - 07/15/2023 8:36 AM EDT Tuna Purse Seiner's Name: javed sawyer Are you on a [...] to receive one? n documented in this encounterMercy Health [facility]04-10-2024 NoteHNO ID: [id number] Author: ROQUE DELGADO MD Service: ? Author Type: Physician Type: Progress Notes Filed: 07/15/2023 09:52 Note Text: [facility] Date: 07/15/2023 Patient name: Mari [...] or double vision) Respiratory: Negative (No Cough, Okwvbzupj-zb-hbzopu, Dyspnea on exertion, wheezing) Cardiovascular: Negative (No [...] CONDYLEANDPLATU MEDIALANDLAT COMPARTMENTS 1990 bilateral total knee s([place]) ARTHRP KNE CONDYLEANDPLATU MEDIALANDLAT COMPARTMENTS 10/24/04 bilateral total knee revisions DELIVERY ONLY , low cervical CHOLECYSTECTOMY COLONOSCOPY FLX DX W/COLLJ SPEC WHEN PFRMD 11/17/2017 Colonoscopy DEBRIDEMENT SUBCUTANEOUS TISSUE 20 SQ CM/< 02/17/07 LEFT LEG DEBRIDEMENT SUBCUTANEOUS TISSUE 20 SQ CM/< [id number] LEFT LEG DEBRIDEMENT SUBCUTANEOUS TISSUE 20 SQ CM/< [id number] LEFT LEG DEBRIDEMENT SUBCUTANEOUS TISSUE 20 SQ CM/< [id number] LEFT LEG DEBRIDEMENT SUBCUTANEOUS TISSUE 20 SQ CM/< [id number] LEFT LEG DEBRIDEMENT SUBCUTANEOUS TISSUE 20 SQ [...] mg 24 hr tablet Take by mouth. Swyjrdpytyp-Wafzvwznv-Ebw C-Mn (GLUCOSAMINE CHONDROITIN MAXSTR) 500-400 mg cap Take 1 capsule by mouth three times daily. COMPOUNDED PRESCRIPTI (more content not included)...[facility] 07-15-2023 History of Present illness Narrative* Roque Delgado MD - 07/15/2023 8:49 AM EDT [facility] Date: 07/15/2023 Patient name: Mari [...] or double vision) Respiratory: Negative (No Cough, Debbuphfl-ym-yzuvct, Dyspnea on exertion, wheezing) Cardiovascular: Negative (No [...] CONDYLE&PLATU MEDIAL&LAT COMPARTMENTS 1990 bilateral total knee s([place]) ARTHRP KNE CONDYLE&PLATU MEDIAL&LAT COMPARTMENTS 10/24/04 bilateral total knee revisions DELIVERY ONLY , low cervical CHOLECYSTECTOMY COLONOSCOPY FLX DX W/COLLJ SPEC WHEN PFRMD 11/17/2017 Colonoscopy DEBRIDEMENT SUBCUTANEOUS TISSUE 20 SQ CM/< 02/17/07 LEFT LEG DEBRIDEMENT SUBCUTANEOUS TISSUE 20 SQ CM/< [id number] LEFT LEG DEBRIDEMENT SUBCUTANEOUS TISSUE 20 SQ CM/< [id number] LEFT LEG DEBRIDEMENT SUBCUTANEOUS TISSUE 20 SQ CM/< [id number] LEFT LEG DEBRIDEMENT SUBCUTANEOUS TISSUE 20 SQ CM/< [id number] LEFT LEG DEBRIDEMENT SUBCUTANEOUS TISSUE 20 SQ [...] mg 24 hr tablet Take by mouth. Ajnutwhzmnq-Rrycxascf-Tub C-Mn (GLUCOSAMINE CHONDROITIN MAXSTR) 500-400 mg cap Take 1 capsule by mouth three times daily. COMPOUNDED PRESCRIPTION Stair lift DAILY-LUISITO tablet TAKE 1 TABLET BY MOUTH ONCE DAILY. nrehtah-nfxjsximc-ptvfayg D3 (CALCIUM 500+D) 500 mg(1,250mg) -200 unit [...] appropriate Assessment and Plan: As noted above Julian protocol documentation / Pre-Procedure Checklist: Consent: Obtained [...] [facility] * Amada Velasco LPN - [...] patient is not nervous/anxious. documented in this encounterMercy Health [facility]04-10-2024 Instructions* Patient Instructions* Sheila Carlson LPN - [...] emergency care and why. documented in this encounterMercy Health [facility]04-10-2024 NoteHNO ID: [id number] Author: AMADA VELASCO LPN Service: ? Author [...] and suicidal ideas. The patient is not nervous/anxious.[facility]03-25-2024 Miscellaneous Notes* Telephone Encounter - Lizy [...] call in. Shruthi Cole documented in this encounterMercy Health Tiffin Hospital03-18-2024 Miscellaneous Notes* Telephone Encounter - Mulugeta Jennings [...] you. Alfred Casanova LPN. documented in this encounterMercy Health Tiffin Hospital03-12-2024 Miscellaneous Notes* Telephone Encounter - Samuel Maza MA - 06/16/2023 2:44 PM EDT Patient notified. Samuel Maza MA * Telephone Encounter - Roque Delgado MD - 06/16/2023 2:30 PM EDT Refill for Flexeril approved and sent to patient's preferred pharmacy. Roque Delgado III, MD, DENNIS documented in this encounterMercy Health Tiffin Hospital03-05-2024 Discharge summary Author Ralph Haynes [facility] June 09, 2023 8:24am Note Date/Time June 09, 2023 8:20 am [facility] Medical Records Department [address] [place] [address] Discharge Summary 06/09/23 0820 MR#: [id number] Acct: [id number] Name: MARI LOPEZ Rep #:[id number] : 1940 82 From: Ralph Haynes MD PCP: BROOKLYN Aguillon Status:ADM I N Location: [place] [address] Providers Date of Admission: 06/08/23 Date of [...] 50 mg PO DAILY 02/09/18 glucosamine 500 bs-sdenkcrcs-ntehgjsh comp 400 mg-D3 667 unit-C-Mn cap 1 cap PO TID 10/17/19 hydrocortisone-pramoxine 2.5 %-1 % (4g) rectal cream 1 applic DC BID 10/17/19 zolpidem 10 mg tablet 10 [...] (Auto) 42.7 L, Lymph % (Auto) 39.0, Hart % (Auto) 8.9, Eos % (Auto) 8.5 [...] tablet 50 mg PO DAILY glucosamine 500 db-qxappacrj-vqvduird comp 400 mg-D3 667 unit-C-Mn cap 500-400-667 [...] Self Care Charges/Coding Visit Charges Inpatient E&M: 96994 Disch Hosp >30min 06/09/23 0824 <Electronically signed by Ralph Haynes MD> Cosigner Signature (if applicable): CC: BROOKLYN Orozco; Dr. Ralph Haynes MD~ Signed [facility] Work Phone: 1(227) 664-346303-05-2024 Progress note Author Ralph Haynes [facility] June 09, 2023 8:24am Note Date/Time June 09, 2023 7:46 am [facility] Medical Records Department [address] [place] [address] Progress Note - Hospitalist 06/09/23 0746 MR#: [id number] Acct: [id number] Name: MARI LOPEZ Rep #:[id number] : 1940 82 From: Ralph Haynes MD PCP: Miryam Orozco NP-Angel Status:ADM I N Location: MS3 AC479-8 Reason for Visit Reason for Visit: Diagnoses [...] (Auto) 42.7 L, Lymph % (Auto) 39.0, Hart % (Auto) 8.9, Eos % (Auto) 8.5 [...] Cosigner Signature (if applicable): CC: ~ Signed [facility] Work Phone: 1(719) 148-943503-04-2024 Progress note Author Ralph Haynes [facility] June 08, 2023 8:46am Note Date/Time June 08, 2023 8:43 am [facility] Medical Records Department [address] [place] [address] Progress Note - Hospitalist 06/08/23 0838 MR#: [id number] Acct: [id number] Name: MARI LOPEZ Rep #:[id number] : 1940 82 From: Ralph Haynes MD PCP: Miryam Orozco ORTHODONTIC BAND MAKERMarcoC Status:ADM I N Location: [place] [address] Reason for Visit Reason for Visit: Diagnoses [...] 74.9 H, Lymph % (Auto) 14.2 L, Hart % (Auto) 5.8, Eos % (Auto) 3.9, [...] (Auto) 69.9, Lymph % (Auto) 18.6 L, Hart % (Auto) 6.7, Eos % (Auto) 3.8, [...] documentation,50 Minutes Charges/Coding Visit Charges Inpatient E&M: 92019 Subs Hosp L3 06/08/23 0846 <Electronically signed by Ralph Haynes MD> Cosigner Signature (if applicable): CC: ~ Signed [facility] Work Phone: 1(328) 492-267403-04-2024 History and physical note Author Ralph Smith [facility] June 08, 2023 4:54am Note Date/Time June 07, 2023 11:4 1pm [facility] Medical Records Department [address] [place] [address] H&P Exam - Hospitalist 06/07/23 2334 MR#: [id number] Acct: [id number] Name: MARI LOPEZ Rep #:[id number] : 1940 82 From: Ralph Wei DO PCP: BROOKLYN Aguillon Status:ADM I N Location: [place]3 [id number] HPI - General General Date of Admission: [...] osteoarthritis; s/p bilateral TKR who presents to [facility] ER complaining of abdominal pain [...] expected to be greater than 48 hours. [facility] Medical History (HFpEF) heart failure with preserved [...] 02/09/18 [History Last Taken Unknown] glucosamine 500 yc-qxuifflvy-fetbkacy comp 400 mg-D3 667 unit-C-Mn cap 1 cap PO TID 10/17/19 [History Last Taken Unknown] hydrocortisone-pramoxine 2.5 %-1 % (4g) rectal cream 1 applic DC BID 10/17/19 [History Last Taken Unknown] zolpidem [...] 74.9 H, Lymph % (Auto) 14.2 L, Hart % (Auto) 5.8, Eos % (Auto) 3.9, [...] 55 minutes. Charges/Coding Visit Charges Inpatient E&M: 53457 Init Hosp L2 06/08/23 4804 <Electronically signed by Ralph Wheeler DO> Cosigner Signature (if applicable): CC: BROOKLYN Orozco; Dr. Ralph Wheeler DO~ Signed [facility] Work Phone: 1(960) 164-338603-04-2024 Discharge summary Author Judson Toney [facility] June 07, 2023 11:43pm Note Date/Time June 07, 2023 7:27 pm [facility] Medical Records Department [address] [place] [address] Emergency Department Summary 06/07/23 MR#: [id number] Acct: [id number] Name: MARI LOPEZ Rep #:[id number] : 1940 82 From: Weston BELLAMY PCP: [...] throughout the day. No history of obstruction. [facility] <MIA Hodge - Last Filed: 06/07/23 21:37> [facility] Medical History (HFpEF) heart failure with preserved [...] 02/09/18 [History Last Taken Unknown] glucosamine 500 je-hnnyofgwc-zwrzeceq comp 400 mg-D3 667 unit-C-Mn cap 1 cap PO TID 10/17/19 [History Last Taken Unknown] hydrocortisone-pramoxine 2.5 %-1 % (4g) rectal cream 1 applic DC BID 10/17/19 [History Last Taken Unknown] zolpidem [...] <MIA Hodge - Last Filed: 06/07/23 21:37> [facility] MDM Narrative Medical decision making narrative: [...] 74.9 H Lymph % (Auto) 14.2 L Hart % (Auto) 5.8 Eos % (Auto) 3.9 [...] Toney, DO - Last Filed: 06/07/23 23:43> [facility] Narrative Medical decision making narrative: Differential: Constipation, [...] constipation we will admit the patient to [facility] as a full admit. Discussed [...] management plan. This note was generated with [employer] dictation software. It may contain incorrectwords, spelling, [...] 74.9 H Lymph % (Auto) 14.2 L Hart % (Auto) 5.8 Eos % (Auto) 3.9 [...] tablet 50 mg PO DAILY glucosamine 500 mw-tggnghvsr-huetgtsk comp 400 mg-D3 667 unit-C-Mn cap 500-400-667 [...] your Primary Care Provider. Call [facility] ([phone]) or report to the closest Emergency Room. Call 911 if necessary. 06/07/232136 <Electronically signed by Weston BELLAMY> Cosigner Signature (if applicable): 06/07/233 <Electronically signed by Judson Toney DO> CC: BROOKLYN Orozco ~ Signed [facility] Work Phone: 1(321) 697-979903-03-2024 Discharge summary Author Judson Toney [facility] June 07, 2023 11:43pm Note Date/Time June 07, 2023 7:27 pm [facility] Medical Records Department [address] [place] [address] Emergency Department Summary 06/07/23 MR#: [id number] Acct: [id number] Name: MARI LOPEZ Rep #:[id number] : 1940 82 From: Weston BELLAMY PCP: [...] 02/09/18 [History Last Taken Unknown] glucosamine 500 af-inebjkwnr-wvaxuviv comp 400 mg-D3 667 unit-C-Mn cap 1 cap PO TID 10/17/19 [History Last Taken Unknown] hydrocortisone-pramoxine 2.5 %-1 % (4g) rectal cream 1 applic DC BID 10/17/19 [History Last Taken Unknown] zolpidem [...] <MIA Hodge - Last Filed: 06/07/23 21:37> [facility] Narrative Medical decision making narrative: Differential: Constipation, [...] 74.9 H Lymph % (Auto) 14.2 L Hart % (Auto) 5.8 Eos % (Auto) 3.9 [...] Toney, DO - Last Filed: 06/07/23 23:43> [facility] MDM Narrative Medical decision making narrative: [...] constipation we will admit the patient to [facility] as a full admit. Discussed [...] management plan. This note was generated with [employer] dictation software. It may contain incorrectwords, spelling, [...] 74.9 H Lymph % (Auto) 14.2 L Hart % (Auto) 5.8 Eos % (Auto) 3.9 [...] tablet 50 mg PO DAILY glucosamine 500 hu-oglxznvjr-brpemmkn comp 400 mg-D3 667 unit-C-Mn cap 500-400-667 [...] your Primary Care Provider. Call [facility] ([phone]) or report to the closest Emergency Room. Call 911 if necessary. 06/07/232136 <Electronically signed by Weston BELLAMY> Cosigner Signature (if applicable): 06/07/23 2343 <Electronically signed by Judson Toney DO> CC: ORTHODONTIC BAND MAKERRonald Orozco ~ Signed [facility] Work Phone: 1(899) 133-479902-29-2024 Miscellaneous Notes* Telephone Encounter - Lora Valles LPN - 06/04/2023 1:40 PM EST Spoke with patient and updated her. Lora Valles LPN * Telephone Encounter - Rebekah Bobo APRN.CJ - 06/04/2023 1:31 PM EST oarrs was checked- no medication discrepancy or aberrations noted Xanax sent Rebekah Bobo APRN.ACCOUNTANT * Telephone Encounter - Jennifer De Leon - 06/04/2023 1:21 PM EST Patient would like a prescription for xanax called into pharmacy to take for RFA. Instructed patient to pickling operator and bring to appointment as it must be taken under the supervision of our clinical staff. Also instructed patient to arrive 45 minutes early to appointment and that forklift driver must stay for the entirety of [...] Yes 9. Does this procedure require a forklift driver? Yes If yes, has patient been notified that a forklift driver is needed and must be present [...] vaccine.) Jennifer De Leon documented in this encounterMercy Health Tiffin Hospital02-27-2024 History of Present illness Narrative* Rebekah Bobo APRN.ACCOUNTANT - 06/02/2023 10:15 AM EST VIRTUAL VISIT PROGRESS NOTE This is a virtual visit using Audio Only Visit. It required patient-provider interaction for the medical decision making as documented below. I have communicated my name and active licensure. The patient's identity and physical location wereverified at the time of this visit. Either the patient or their legal contact representative has been informed of the risks [...] and thrombophlebitis of femoral vein (deep) (superficial) ([facility]) Unspecified sleep apnea PAST SURGICAL HISTORY Procedure Laterality Date ANESTHESIA HERNIA REPAIR LOWER ABDOMEN NOS 04/2004,05/11 gortex put in on 05/11 then taken out06/08 ARTHRP KNE CONDYLE&PLATU MEDIAL&LAT COMPARTMENTS 1990 bilateral total knee s([place]) ARTHRP KNE CONDYLE&PLATU MEDIAL&LAT COMPARTMENTS 10/24/04 bilateral total knee revisions DELIVERY ONLY , low cervical CHOLECYSTECTOMY COLONOSCOPY FLX DX W/COLLJ SPEC WHEN PFRMD 11/17/2017 Colonoscopy DEBRIDEMENT SUBCUTANEOUS TISSUE 20 SQ CM/< 02/17/07 LEFT LEG DEBRIDEMENT SUBCUTANEOUS TISSUE 20 SQ CM/< [id number] LEFT LEG DEBRIDEMENT SUBCUTANEOUS TISSUE 20 SQ CM/< [id number] LEFT LEG DEBRIDEMENT SUBCUTANEOUS TISSUE 20 SQ CM/< [id number] LEFT LEG DEBRIDEMENT SUBCUTANEOUS TISSUE 20 SQ CM/< [id number] LEFT LEG DEBRIDEMENT SUBCUTANEOUS TISSUE 20 SQ [...] mg 24 hr tablet Take by mouth. Ahiwodiskik-Wmtzwkpip-Gjl C-Mn (GLUCOSAMINE CHONDROITIN MAXSTR) 500-400 mg cap Take 1 capsule by mouth three times daily. COMPOUNDED PRESCRIPTION Stair lift DAILY-LUISITO tablet TAKE 1 TABLET BY MOUTH ONCE DAILY. ixupsnu-vyfdpvuul-rmnfzow D3 (CALCIUM 500+D) 500 mg(1,250mg) -200 unit [...] which included preparing to see the patient, kias-pw-sggd patient care, completing clinical documentation, and ordering medications, tests, orprocedures Rebekah Bobo APRN.CNP I have communicated my name and active licensure. The patient's identity and physical location wereverified at the time of this visit. Either the patient or their legal contact representative has been informed of the risks and benefits of -- and alternatives to -- treatment through a remote evaluation andconsents to proceed with the evaluation remotely. documented in this encounterMercy Health Tiffin Hospital02-27-2024 NoteHNO ID: [id number] Author: REBEKAH BOBO APRN.CNP Service: ? Author [...] visit. Either the patient or their legal contact representative has been informed of the risks [...] CONDYLEANDPLATU MEDIALANDLAT COMPARTMENTS 1990 bilateral total knee s([place]) ARTHRP KNE CONDYLEANDPLATU MEDIALANDLAT COMPARTMENTS 10/24/04 bilateral total knee revisions DELIVERY ONLY , low cervical CHOLECYSTECTOMY COLONOSCOPY FLX DX W/COLLJ SPEC WHEN PFRMD 11/17/2017 Colonoscopy DEBRIDEMENT SUBCUTANEOUS TISSUE 20 SQ CM/< 02/17/07 LEFT LEG DEBRIDEMENT SUBCUTANEOUS TISSUE 20 SQ CM/< [id number] LEFT LEG DEBRIDEMENT SUBCUTANEOUS TISSUE 20 SQ CM/< [id number] LEFT LEG DEBRIDEMENT SUBCUTANEOUS TISSUE 20 SQ CM/< [id number] LEFT LEG DEBRIDEMENT SUBCUTANEOUS TISSUE 20 SQ CM/< [id number] LEFT LEG DEBRIDEMENT SUBCUTANEOUS TISSUE 20 SQ [...] mg 24 hr tablet Take by mouth. Eysqoenfcjb-Ikejalymf-Pgf C-Mn (GLUCOSAMINE CHONDROITIN MAXSTR) 500-400 mg cap Take 1 capsule by mouth three times daily. COMPOUNDED PRESCRIPTION Stair lift DAILY-LUISITO tablet TAKE 1 TABLET BY MOUTH ONCE DAILY. fdougmi-jubccsnad-ajpqfbs D3 (CALCIUM 500+D) 500 mg(1,250m (more content not included)...[facility]02-27-2024 Instructions* Patient Instructions* Rebekah Bobo APRN.CNP - 06/02/2023 7:01 AM EST Ice and heat as tolerated Activity as tolerated documented in this encounterMercy Health Tiffin Hospital02-14-2024 Miscellaneous Notes* Telephone Encounter - Jorje Nagel LPN - 05/20/2023 1:34 PM EST Spoke with patient following up from procedure. Patient states they are doing well, no questions orconcerns at this time. Jorje Nagel LPN documented in this encounterMercy Health Tiffin Hospital02-12-2024 Instructions* Patient Instructions* Carolann Marx LPN - [...] emergency care and why. documented in this encounterMercy Health Tiffin Hospital02-12-2024 NoteHNO ID: [id number] Author: CAROLANN MARX LPN Service: ? Author [...] via ambulatory method. Patient left in good condition.[facility]02-12-2024 History of Present illness Narrative* Carolann [...] 1:14 PM EST [facility] Patient name: Mari Lopez Date of : 1940 Today's date: 05/18/2023 Purpose: Ultrasound-guided injection Water Sponger: Roque Delgado M.D., M.B.A Diagnosis: (M19.011, M19.012) [...] or double vision) Respiratory: Negative (No Cough, Rhglnbegi-um-ymcjwr, Dyspnea on exertion, wheezing) Cardiovascular: Negative (No [...] and thrombophlebitis of femoral vein (deep) (superficial) ([facility]) Unspecified sleep apnea PAST SURGICAL HISTORY Procedure Laterality Date ANESTHESIA HERNIA REPAIR LOWER ABDOMEN NOS 04/2004,05/11 gortex put in on 05/11 then taken out06/08 ARTHRP KNE CONDYLE&PLATU MEDIAL&LAT COMPARTMENTS 1990 bilateral total knee s([place]) ARTHRP KNE CONDYLE&PLATU MEDIAL&LAT COMPARTMENTS 10/24/04 bilateral total knee revisions DELIVERY ONLY , low cervical CHOLECYSTECTOMY COLONOSCOPY FLX DX W/COLLJ SPEC WHEN PFRMD 11/17/2017 Colonoscopy DEBRIDEMENT SUBCUTANEOUS TISSUE 20 SQ CM/< 02/17/07 LEFT LEG DEBRIDEMENT SUBCUTANEOUS TISSUE 20 SQ CM/< [id number] LEFT LEG DEBRIDEMENT SUBCUTANEOUS TISSUE 20 SQ CM/< [id number] LEFT LEG DEBRIDEMENT SUBCUTANEOUS TISSUE 20 SQ CM/< [id number] LEFT LEG DEBRIDEMENT SUBCUTANEOUS TISSUE 20 SQ CM/< [id number] LEFT LEG DEBRIDEMENT SUBCUTANEOUS TISSUE 20 SQ [...] mg 24 hr tablet Take by mouth. Logkfahgacd-Yjzxlpynm-Zol C-Mn (GLUCOSAMINE CHONDROITIN MAXSTR) 500-400 mg cap Take 1 capsule by mouth three times daily. COMPOUNDED PRESCRIPTION Stair lift DAILY-LUISITO tablet TAKE 1 TABLET BY MOUTH ONCE DAILY. wngbawc-myfbgrfmx-vihzbbd D3 (CALCIUM 500+D) 500 mg(1,250mg) -200 unit [...] appropriate Assessment and Plan: As noted above Julian protocol documentation / Pre-Procedure Checklist: Consent: Obtained [...] DENNIS Pain Management [facility] * Rom Cano LPN - [...] patient is not nervous/anxious. documented in this encounterMercy Health Tiffin Hospital02-12-2024 NoteHNO ID: [id number] Author: ROQUE DELGADO MD Service: ? Author Type: Physician Type: Progress Notes Filed: 05/18/2023 13:48 Note Text: [facility] Patient name: Mari Lopez Date of : 1940 Today's date: 05/18/2023 Purpose: Ultrasound-guided injection Water Sponger: Roque Delgado M.D., M.B.A Diagnosis: (M19.011, M19.012) [...] or double vision) Respiratory: Negative (No Cough, Vnwxvfyor-fx-vklbpj, Dyspnea on exertion, wheezing) Cardiovascular: Negative (No [...] and thrombophlebitis of femoral vein (deep) (superficial) ([facility]) Unspecified sleep apnea PAST SURGICAL HISTORY Procedure Laterality Date ANESTHESIA HERNIA REPAIR LOWER ABDOMEN NOS 04/2004,05/11 gortex put in on 05/11 then taken out06/08 ARTHRP KNE CONDYLEANDPLATU MEDIALANDLAT COMPARTMENTS 1990 bilateral total knee s([place]) ARTHRP KNE CONDYLEANDPLATU MEDIALANDLAT COMPARTMENTS 10/24/04 bilateral total knee revisions DELIVERY ONLY , low cervical CHOLECYSTECTOMY COLONOSCOPY FLX DX W/COLLJ SPEC WHEN PFRMD 11/17/2017 Colonoscopy DEBRIDEMENT SUBCUTANEOUS TISSUE 20 SQ CM/< 02/17/07 LEFT LEG DEBRIDEMENT SUBCUTANEOUS TISSUE 20 SQ CM/< [id number] LEFT LEG DEBRIDEMENT SUBCUTANEOUS TISSUE 20 SQ CM/< [id number] LEFT LEG DEBRIDEMENT SUBCUTANEOUS TISSUE 20 SQ CM/< [id number] LEFT LEG DEBRIDEMENT SUBCUTANEOUS TISSUE 20 SQ CM/< [id number] LEFT LEG DEBRIDEMENT SUBCUTANEOUS TISSUE 20 SQ [...] mg 24 hr (more content not included)... [facility]02-12-[facility] Nurse Note* Amada Velasco LPN - 05/18/2023 1:08 PM EST Procedure to be performed: Unilateral Left SUPRASCAPULAR NERVE BLOCK Patient was wheeled on stretcher from pre op bay to procedure room and assisted onto the procedure tablePatient s procedure was performed in an [facility] Procedure room. Pause completed at each [...] Cano LPN - 05/18/2023 1:02 PM EST Tuna Purse Seiner's Name: ALEX Are you on a blood [...] to receive one? N documented in this encounterMercy Health Tiffin Hospital02-12-2024 NoteHNO ID: [id number] Author: ROM CANO LPN Service: ? Author [...] and suicidal ideas. The patient is not nervous/anxious.[facility] 04-16-2023 NoteHNO ID: [id number] Author: KALEIGH RODNEY MA Service: ? Author Type: Frame Pulley Mortising Machine Operator Type: Progress Notes Filed: 04/16/2023 08:43 Note [...] and suicidal ideas. The patient is not nervous/anxious.[facility] 03-31-2023 History of Present illness Narrative* [...] 31, 2023 11:25 AM documented in this encounterMercy Health Tiffin Hospital12-26-2023 NoteHNO ID: [id number] Author: ROQUE DELGADO MD Service: ? Author Type: Physician Type: Progress Notes Filed: 04/16/2023 08:43 Note Text: [facility] Today's Date: 04/16/2023 Last visit: 01/15/2023 [...] current dose Flexeril 10mg TID PRN Functional Pentecostal: No changes-continue current regimen Additional Studies: X-ray [...] - Initial HPI (Obtained by Avis Marrufo APRN.ACCOUNTANT ). From 03/2022 - She previously inquired [...] chief complaint(s)): Neuropathics: Ne (more content not included)...[facility] 03-02-2023 History of Present illness Narrative* Rebekah Bobo, NANCI.ACCOUNTANT - 03/02/2023 3:45 PM EST VIRTUAL VISIT PROGRESS NOTE This is a virtual visit using Audio Only Visit. It required patient-provider interaction for the medical decision making as documented below. I have communicated my name and active licensure. The patient's identity and physical location wereverified at the time of this visit. Either the patient or their legal contact representative has been informed of the risks [...] CONDYLE&PLATU MEDIAL&LAT COMPARTMENTS 1990 bilateral total knee s([place]) ARTHRP KNE CONDYLE&PLATU MEDIAL&LAT COMPARTMENTS 10/24/04 bilateral total knee revisions DELIVERY ONLY , low cervical CHOLECYSTECTOMY COLONOSCOPY FLX DX W/COLLJ SPEC WHEN PFRMD 11/17/2017 Colonoscopy DEBRIDEMENT SUBCUTANEOUS TISSUE 20 SQ CM/< 02/17/07 LEFT LEG DEBRIDEMENT SUBCUTANEOUS TISSUE 20 SQ CM/< [id number] LEFT LEG DEBRIDEMENT SUBCUTANEOUS TISSUE 20 SQ CM/< [id number] LEFT LEG DEBRIDEMENT SUBCUTANEOUS TISSUE 20 SQ CM/< [id number] LEFT LEG DEBRIDEMENT SUBCUTANEOUS TISSUE 20 SQ CM/< [id number] LEFT LEG DEBRIDEMENT SUBCUTANEOUS TISSUE 20 SQ [...] mg 24 hr tablet Take by mouth. Qfirbjjmmid-Jedytzjas-Dpd C-Mn (GLUCOSAMINE CHONDROITIN MAXSTR) 500-400 mg cap Take 1 capsule by mouth three times daily. COMPOUNDED PRESCRIPTION Stair lift DAILY-LUISITO tablet TAKE 1 TABLET BY MOUTH ONCE DAILY. pqrdfga-sddpyfhmj-jhqctsw D3 (CALCIUM 500+D) 500 mg(1,250mg) -200 unit [...] which included preparing to see the patient, sghk-wk-bcag patient care, and completing clinical documentation Rebekah Bobo APRN.CJ I have communicated my name and active licensure. The patient's identity and physical location wereverified at the time of this visit. Either the patient or their legal contact representative has been informed of the risks and benefits of -- and alternatives to -- treatment through a remote evaluation andconsents to proceed with the evaluation remotely. documented in this encounterMercy Health Tiffin Hospital11-27-2023 NoteHNO ID: [id number] Author: Rebekah Bobo APRN.CJ Service: ? Author [...] visit. Either the patient or their legal contact representative has been informed of the risks [...] and thrombophlebitis of femoral vein (deep) (superficial) ([facility]) Unspecified sleep apnea PAST SURGICAL HISTORY Procedure Laterality Date ANESTHESIA HERNIA REPAIR LOWER ABDOMEN NOS 04/2004,05/11 gortex put in on 05/11 then taken out06/08 ARTHRP KNE CONDYLEANDPLATU MEDIALANDLAT COMPARTMENTS 1990 bilateral total knee s([place]) ARTHRP KNE CONDYLEANDPLATU MEDIALANDLAT COMPARTMENTS 10/24/04 bilateral total knee revisions DELIVERY ONLY , low cervical CHOLECYSTECTOMY COLONOSCOPY FLX DX W/COLLJ SPEC WHEN PFRMD 11/17/2017 Colonoscopy DEBRIDEMENT SUBCUTANEOUS TISSUE 20 SQ CM/< 02/17/07 LEFT LEG DEBRIDEMENT SUBCUTANEOUS TISSUE 20 SQ CM/< [id number] LEFT LEG DEBRIDEMENT SUBCUTANEOUS TISSUE 20 SQ CM/< [id number] LEFT LEG DEBRIDEMENT SUBCUTANEOUS TISSUE 20 SQ CM/< [id number] LEFT LEG DEBRIDEMENT SUBCUTANEOUS TISSUE 20 SQ CM/< [id number] LEFT LEG DEBRIDEMENT SUBCUTANEOUS TISSUE 20 SQ [...] mg 24 hr tablet Take by mouth. Vcoqogwlffb-Vvolrlnxh-Icj C-Mn (GLUCOSAMINE CHONDROITIN MAXSTR) 500-400 mg cap Take 1 capsule by mouth three times daily. COMPOUNDED PRESCRIPTION Stair lift DAILY-LUISITO tablet TAKE 1 TABLET BY MOUTH ONCE DAILY. yxrmeco-nofuecquh-zpwancc D3 (CALCIUM 500+D) 500 mg(1,250mg) -200 unit per tablet Take 1 tablet by mouth twice daily with meals. vitamin b complex (B COMPLETE) tab Take 1 tablet by mouth once daily. hydrocortisone (ANUSOL-HC) 2.5 % rectal cream 1 application by RECTAL route twice daily. (more content not included)...[facility] 03-02-2023 Instructions* Patient Instructions* Rebekah Bboo APRN.CNP - 03/02/2023 6:59 AM EST Ice and heat as tolerated Activity as tolerated documented in this encounterMercy Health Tiffin Hospital11-13-2023 Nurse Note* Rom Cano LPN - 02/16/2023 [...] tablePatient s procedure was performed in an [facility] Procedure room. Pause completed at each [...] Robbins LPN - 02/16/2023 11:04 AM EST Tuna Purse Seiner's Name: N/A Are you on a blood [...] to receive one? n documented in this encounterMercy Health Tiffin Hospital11-13-2023 Instructions* Patient Instructions* Rom Cano LPN - [...] emergency care and why. documented in this encounterMercy Health Tiffin Hospital11-13-2023 NoteHNO ID: [id number] Author: Octavio Robbins LPN Service: ? Author [...] and suicidal ideas. The patient is not nervous/anxious.[facility]11-13-2023 History of Present illness Narrative* Octavio [...] 10:45 AM EST [facility] Date: 02/16/2023 Patient name: Mari [...] or double vision) Respiratory: Negative (No Cough, Utywipqwk-uh-roiawd, Dyspnea on exertion, wheezing) Cardiovascular: Negative (No [...] CONDYLE&PLATU MEDIAL&LAT COMPARTMENTS 1990 bilateral total knee s([place]) ARTHRP KNE CONDYLE&PLATU MEDIAL&LAT COMPARTMENTS 10/24/04 bilateral total knee revisions DELIVERY ONLY , low cervical CHOLECYSTECTOMY COLONOSCOPY FLX DX W/COLLJ SPEC WHEN PFRMD 11/17/2017 Colonoscopy DEBRIDEMENT SUBCUTANEOUS TISSUE 20 SQ CM/< 02/17/07 LEFT LEG DEBRIDEMENT SUBCUTANEOUS TISSUE 20 SQ CM/< [id number] LEFT LEG DEBRIDEMENT SUBCUTANEOUS TISSUE 20 SQ CM/< [id number] LEFT LEG DEBRIDEMENT SUBCUTANEOUS TISSUE 20 SQ CM/< [id number] LEFT LEG DEBRIDEMENT SUBCUTANEOUS TISSUE 20 SQ CM/< [id number] LEFT LEG DEBRIDEMENT SUBCUTANEOUS TISSUE 20 SQ [...] mg 24 hr tablet Take by mouth. Vjxhlicxmux-Spdhckagm-Thq C-Mn (GLUCOSAMINE CHONDROITIN MAXSTR) 500-400 mg cap Take 1 capsule by mouth three times daily. COMPOUNDED PRESCRIPTION Stair lift DAILY-LUISITO tablet TAKE 1 TABLET BY MOUTH ONCE DAILY. vhnspvl-qyodqhnry-orgzxxa D3 (CALCIUM 500+D) 500 mg(1,250mg) -200 unit [...] appropriate Assessment and Plan: As noted above Julian protocol documentation / Pre-Procedure Checklist: Consent: Obtained [...] DENNIS Pain Management [facility] documented in this encounterMercy Health Tiffin Hospital11-13-2023 NoteHNO ID: [id number] Author: Roque Delgado MD Service: ? Author Type: Physician Type: Progress Notes Filed: 02/16/2023 12:55 PM Note Text: [facility] Date: 02/16/2023 Patient name: Mari [...] or double vision) Respiratory: Negative (No Cough, Ijnjfvgux-al-kujnsi, Dyspnea on exertion, wheezing) Cardiovascular: Negative (No [...] and thrombophlebitis of femoral vein (deep) (superficial) ([facility]) Unspecified sleep apnea PAST SURGICAL HISTORY Procedure Laterality Date ANESTHESIA HERNIA REPAIR LOWER ABDOMEN NOS 04/2004,05/11 gortex put in on 05/11 then taken out06/08 ARTHRP KNE CONDYLEANDPLATU MEDIALANDLAT COMPARTMENTS 1990 bilateral total knee s([place]) ARTHRP KNE CONDYLEANDPLATU MEDIALANDLAT COMPARTMENTS 10/24/04 bilateral total knee revisions DELIVERY ONLY , low cervical CHOLECYSTECTOMY COLONOSCOPY FLX DX W/COLLJ SPEC WHEN PFRMD 11/17/2017 Colonoscopy DEBRIDEMENT SUBCUTANEOUS TISSUE 20 SQ CM/< 02/17/07 LEFT LEG DEBRIDEMENT SUBCUTANEOUS TISSUE 20 SQ CM/< [id number] LEFT LEG DEBRIDEMENT SUBCUTANEOUS TISSUE 20 SQ CM/< [id number] LEFT LEG DEBRIDEMENT SUBCUTANEOUS TISSUE 20 SQ CM/< [id number] LEFT LEG DEBRIDEMENT SUBCUTANEOUS TISSUE 20 SQ CM/< [id number] LEFT LEG DEBRIDEMENT SUBCUTANEOUS TISSUE 20 SQ [...] Take by mouth. Glucosamine-Chondroit (more content not included)...[facility] 01-15-2023 History of Present illness Narrative* [...] 15, 2023 11:24 AM documented in this encounterMercy Health Tiffin Hospital10-12-2023 Miscellaneous Notes* Telephone Encounter - Jennifer De [...] No 9. Does this procedure require a forklift driver? No If yes, has patient been notified that a forklift driver is needed and must be present [...] vaccine.) Jennifer De Leon documented in this encounterMercy Health Tiffin Hospital10-12-2023 NoteHNO ID: [id number] Author: Kerrie Guthrie LPN Service: ? Author [...] and suicidal ideas. The patient is not nervous/anxious.[facility]10-12-2023 History of Present illness Narrative* Kerrie [...] not included. [facility] General Name: Mari Lopez : 1940 Purpose: [...] bony destructive process. Lumbar: There are five cvt-qee-jxgmmcc lumbar vertebrae. No acute fracture or subluxations [...] report bilateral flank pain. She states her assistant professor of education, PCP and manager logistic advised her pain is coming from her [...] current dose Flexeril 10mg TID PRN Functional Pentecostal: No changes-continue current regimen Additional Studies: X-ray [...] MD Pain Management [facility] documented in this encounterMercy Health Tiffin Hospital10-11-2023 NoteHNO ID: [id number] Author: Roque Delgado MD Service: ? Author Type: Physician Type: Progress Notes Filed: 01/15/2023 8:58 AM Note Text: [facility] Name: Mari Lopez : 1940 Purpose: [...] foraminal narrowing. Otherwise, the (more content not included)...[facility]09-20-2023 Miscellaneous Notes* Telephone Encounter - Miryam Orozco APRN.CNP - 12/24/2022 9:34 AM EDT Face sheet, consult, and last OV notes faxed to Dr. Gilmore's office in [place]. Miryam Orozco APRN.ACCOUNTANT * Telephone Encounter - Minna Blue LPN [...] like to establish care with a new manager logistic I would recommend [facility], Dr. Gilmore. Please let me know what she prefers. If she would like we can recheck kidney function in 2 to 4 weeks after stopping Lasix. Thank you. Miryam Orozco APRN.CJ documented in this encounterMercy Health Tiffin Hospital09-18-2023 Instructions* Patient Instructions* Miryam Orozco APRN.CNP - 12/22/2022 9:15 AM EDT Get labs completed Stay well hydrated. Continue to take all medication as prescribed. Continue at home exercises at home for shoulder pain, any worsening symptoms contact the office. Keep up coming appointment Dr. Delgado. Elevate the legs when possible. Follow up in 3 months or sooner pending test results. documented in this encounterMercy Health Tiffin Hospital09-18-2023 History of Present illness Narrative* Miryam Orozco [...] Lasix daily, following with Nephrology, Dr. Acosta [facility]. Had decreased GFR in , Following [...] CONDYLE&PLATU MEDIAL&LAT COMPARTMENTS 1990 bilateral total knee s([place]) ARTHRP KNE CONDYLE&PLATU MEDIAL&LAT COMPARTMENTS 10/24/04 bilateral total knee revisions DELIVERY ONLY , low cervical CHOLECYSTECTOMY COLONOSCOPY FLX DX W/COLLJ SPEC WHEN PFRMD 11/17/2017 Colonoscopy DEBRIDEMENT SUBCUTANEOUS TISSUE 20 SQ CM/< 02/17/07 LEFT LEG DEBRIDEMENT SUBCUTANEOUS TISSUE 20 SQ CM/< [id number] LEFT LEG DEBRIDEMENT SUBCUTANEOUS TISSUE 20 SQ CM/< [id number] LEFT LEG DEBRIDEMENT SUBCUTANEOUS TISSUE 20 SQ CM/< [id number] LEFT LEG DEBRIDEMENT SUBCUTANEOUS TISSUE 20 SQ CM/< [id number] LEFT LEG DEBRIDEMENT SUBCUTANEOUS TISSUE 20 SQ [...] Take 40 mg by mouth once daily.) Wsxhwxaqfuj-Ydluvhtua-Frw C-Mn (GLUCOSAMINE CHONDROITIN MAXSTR) 500-400 mg cap Take 1 capsule by mouth three times daily. COMPOUNDED PRESCRIPTION Stair lift DAILY-LUISITO tablet TAKE 1 TABLET BY MOUTH ONCE DAILY. zdvsinf-dmrcphymm-jlitwzk D3 (CALCIUM 500+D) 500 mg(1,250mg) -200 unit [...] APRN.CJ This note was partially generated using [employer] voice recognition system. Note was reviewed for accuracy. There may be minor misspellings or grammar miscues with [employer] voice recognition. documented in this encounterMercy Health Tiffin Hospital08-31-2023 Miscellaneous Notes* Telephone Encounter - Jud Mattson [...] APPOINTMENT 01/15/23 PLEASE ADVISE documented in this encounterMercy Health Tiffin Hospital07-13-2023 Miscellaneous Notes* Addendum Note - Celena Maria LPN - 10/16/2022 10:30 AM EDTAddended by: CELENA MARIA on: 10/16/2022 10:30 AM Modules accepted: Orders documented in this encounterMercy Health Tiffin Hospital07-13-2023 History of Present illness Narrative* Kerrie Guthrie [...] not included. [facility] [place] [facility] Name: Mari Lopez : 1940 Purpose: [...] bony destructive process. Lumbar: There are five ztm-njs-mdiyiik lumbar vertebrae. No acute fracture or subluxations [...] report bilateral flank pain. She states her assistant professor of education, PCP and manager logistic advised her pain is coming from her [...] incident The patient will be followed by contact representative from the company Additional tests, treatments, [...] current dose Flexeril 10mg TID PRN Functional Pentecostal: No changes-continue current regimen Additional Studies: None [...] MD Pain Management [facility] documented in this encounterMercy Health Tiffin Hospital07-05-2023 Miscellaneous Notes* Telephone Encounter - Miryam Orozco [...] notify patient. Quynh Sexton documented in this encounterMercy Health Tiffin Hospital06-29-2023 History of Present illness Narrative* Celia Crowell [...] [facility] Date: 10/02/2022 Name: Mari Lopez : 1940 Purpose: SPR lead(s) Removal Interval History: Mari Lopez is an established patient at [facility], who presents today for removal of SPR [...] incident The patient will be followed by contact representative from the company Additional tests, treatments, or referrals: none Follow-up: For right lead removal in 2 weeks (10/16) Roque Delgado MD, DENNIS Pain Management [facility] * Roque Delgado MD - 10/01/2022 11:35 AM EDT Opened in error documented in this encounterMercy Health Tiffin Hospital05-10-2023 Nurse Note* Rom Cano LPN - 08/13/2022 [...] Time stop:1505 SPRINT endura PNS System Lot- [id number] 2023-11-05 [employer] P[employer] System EXTERNAL PULSE GENERATOR Lot- [id number] 2023-11-05 [employer]PRINT end[employer] PNS System MICROLEAD 2.0 WITH [employer] INTRODUCER Lot- [id number] 2024-06-10 [employer] PNS System CABLES SINGLE-LEAD PROCEDURE Lot- [id number] 2024-05-08 Nurse : Amada Velasco LPN Date: [...] table. Patient s procedure was performed in [facility] procedure room. Pressure was applied to patient s injection site(s) and bleeding was minimal. Patient had no complaint of shortness of breath, dizziness, headache, numbness, tingling, weakness or complications from procedure. Patient was assisted fromthe procedure table onto the stretcher and wheeled into a post op bay. Patient was advised a [facility] Yard Switch Operator would be in for reprogramming. Patient was advised a clinician will be toobtain another set of vitals. Present in the room is: ROQUE DELGADO MD- Physician Amada Velasco - DRY CLIPPER TENDER Shereen Ferreira/ Thierno Lorenzo - SPRINT Yard Switch Operator AMADA SAUL - X-Ray Tech Comments: None Tolerated procedure well: Yes * Jose Roberto Jimenes - 08/13/2022 1:51 PM EDT Tuna Purse Seiner's Name: Cayla Are you on a blood [...] to receive one? no documented in this encounterMercy Health Tiffin Hospital05-10-2023 History of Present illness Narrative* Jose Roberto [...] CONDYLE&PLATU MEDIAL&LAT COMPARTMENTS 1990 bilateral total knee s([place]) ARTHRP KNE CONDYLE&PLATU MEDIAL&LAT COMPARTMENTS 10/24/04 bilateral total knee revisions DELIVERY ONLY , low cervical CHOLECYSTECTOMY COLONOSCOPY FLX DX W/COLLJ SPEC WHEN PFRMD 11/17/2017 Colonoscopy DEBRIDEMENT SUBCUTANEOUS TISSUE 20 SQ CM/< 02/17/07 LEFT LEG DEBRIDEMENT SUBCUTANEOUS TISSUE 20 SQ CM/< [id number] LEFT LEG DEBRIDEMENT SUBCUTANEOUS TISSUE 20 SQ CM/< [id number] LEFT LEG DEBRIDEMENT SUBCUTANEOUS TISSUE 20 SQ CM/< [id number] LEFT LEG DEBRIDEMENT SUBCUTANEOUS TISSUE 20 SQ CM/< [id number] LEFT LEG DEBRIDEMENT SUBCUTANEOUS TISSUE 20 SQ [...] daily. Take on empty stomach. For thyroid. Gpfywmoycnq-Kkpsgonfn-Jaf C-Mn (GLUCOSAMINE CHONDROITIN MAXSTR) 500-400 mg cap Take 1 capsule by mouth three times daily. lisinopril-hydroCHLOROthiazide (PRINZIDE,ZESTORETIC) 10-12.5 mg per tablet Take 1 tablet by mouth once daily. COMPOUNDED PRESCRIPTION Stair lift DAILY-LUISITO tablet TAKE 1 TABLET BY MOUTH ONCE DAILY. qwqerdu-xcbdwzhmd-qvgqkmr D3 (CALCIUM 500+D) 500 mg(1,250mg) -200 unit [...] 7:58 AM EDT [facility] Date: 08/13/2022 Patient name: Mari IGLESIASN: [id number] Physician performing procedure: Roque Delgado M.D., M.B.A. [...] or double vision) Respiratory: Negative (No Cough, Teacbbjke-mr-sxaqqw, Dyspnea on exertion, wheezing) Cardiovascular: Negative (No [...] and thrombophlebitis of femoral vein (deep) (superficial) ([facility]) Unspecified sleep apnea PAST SURGICAL HISTORY Procedure Laterality Date ANESTHESIA HERNIA REPAIR LOWER ABDOMEN NOS 04/2004,05/11 gortex put in on 05/11 then taken out06/08 ARTHRP KNE CONDYLE&PLATU MEDIAL&LAT COMPARTMENTS 1990 bilateral total knee s([place]) ARTHRP KNE CONDYLE&PLATU MEDIAL&LAT COMPARTMENTS 10/24/04 bilateral total knee revisions DELIVERY ONLY , low cervical CHOLECYSTECTOMY COLONOSCOPY FLX DX W/COLLJ SPEC WHEN PFRMD 11/17/2017 Colonoscopy DEBRIDEMENT SUBCUTANEOUS TISSUE 20 SQ CM/< 02/17/07 LEFT LEG DEBRIDEMENT SUBCUTANEOUS TISSUE 20 SQ CM/< [id number] LEFT LEG DEBRIDEMENT SUBCUTANEOUS TISSUE 20 SQ CM/< [id number] LEFT LEG DEBRIDEMENT SUBCUTANEOUS TISSUE 20 SQ CM/< [id number] LEFT LEG DEBRIDEMENT SUBCUTANEOUS TISSUE 20 SQ CM/< [id number] LEFT LEG DEBRIDEMENT SUBCUTANEOUS TISSUE 20 SQ [...] daily. Take on empty stomach. For thyroid. Irxzehzegvc-Wopwjcqoe-Azm C-Mn (GLUCOSAMINE CHONDROITIN MAXSTR) 500-400 mg cap Take 1 capsule by mouth three times daily. lisinopril-hydroCHLOROthiazide (PRINZIDE,ZESTORETIC) 10-12.5 mg per tablet Take 1 tablet by mouth once daily. COMPOUNDED PRESCRIPTION Stair lift DAILY-LUISITO tablet TAKE 1 TABLET BY MOUTH ONCE DAILY. qpibxhg-uiionrnmc-nvzkkkj D3 (CALCIUM 500+D) 500 mg(1,250mg) -200 unit [...] appropriate Assessment and Plan: As noted above Julian protocol documentation / Pre-Procedure Checklist: Consent: Obtained [...] Test stimulation was conducted per the SPR contact representative successfully. The finder needle was then [...] programming and be discharged home with their forklift driver. The patient was instructed to monitor [...] MBA Pain Management [facility] documented in this encounterMercy Health Tiffin Hospital05-01-2023 Miscellaneous Notes* Telephone Encounter - Roque Delgado MD - 08/04/2022 1:04 PM EDT Please let Ms. Lopez know that the right foot x-ray showed no fracture. Roque Delgado III, MD, MBA documented in this encounterMercy Health Tiffin Hospital04-27-2023 History and physical note Author Dr. Jackson [facility] July 31, 2022 2:01pm Note Date/Time July 31, 2022 9:4 1am [facility] Medical Records Department [address] [place] [address] History & Physical Exam 07/31/22 0941 MR#: [id number] Acct: [id number] Name: MARI LOPEZ Rep #:[id number] : 1940 82 From: Maria Teresa Roy ORTHODONTIC BAND MAKER-C PCP: Dr. Lizy Capone MD Status:DC E SDC Location: [facility] History [...] and diuretics.? She was seen by the manager logistic and had Lasix dosage adjustments to 80 [...] results, further recommendations will be made. 07/31/22 0999 <Electronically signed by Maria Teresa HUNTC> Cosigner Signature (if applicable): 07/31/22 1401 <Electronically signed by Norberto Jackson MD> CC: ORTHODONTIC BAND MAKER-C Maria Teresa Oliov; Dr. Norberto Jackson MD; Dr. Lizy Capone MD~ Signed [facility] Work Phone: [phone]) 413-853904-26-2023 Nurse Note* Malena Nagel LPN - 07/30/2022 [...] start:1403 Time stop:1415 SPRINT endura PNS System Lot-[id number] S[employer] end[employer] PNS System EXTERNAL PULSE GENERATOR Lot-[id number] [id number] SPRINT end[employer] PNS System MICROLEAD 2.0 [employer] INTRODUCER Lot-[id number] Jve-1547-21-02 SPRINT endura PNS System CABLES - SINGLE-LEAD PROCEDURE Lot-[id number] Nurse : Amada Velasco LPN Date: July 30, 2022 Time: 2:06 PM Physician: Roque Delgado MD Date: July 30, 2022 Time: 2:06 PM Amada Velasco LPN Pause completed at each level by provider to verify correct level and laterality placement Patient was brought into the procedure room in a wheelchair . Patient s procedure was performed in [facility] procedure room. Pressure was applied to patient s injection site(s) and bleeding was minimal. Patient had no complaint of shortness of breath, dizziness, headache, numbness, tingling, weakness or complications from procedure. Patient was assisted from the procedure table into wheelchair and wheeled back to exam room. Patient was advised a [employer] Yard Switch Operator would be in for reprogramming. Patient was advised a clinician will be to obtain another set of vitals. Present in the room is: ROQUE DELGADO MD - Physician Amada Velasco - RUDDY Ferreira - SPRINT Yard Switch Operator Cordell Flynn - X-Ray Tech Comments: None Tolerated procedure well: Yes * Jose Roberto Jimenes - 07/30/2022 12:56 PM EDT Tuna Purse Seiner's Name: Stephanie Are you on a blood [...] to receive one? no documented in this encounterMercy Health Tiffin Hospital04-26-2023 History of Present illness Narrative* Jose Roberto [...] and thrombophlebitis of femoral vein (deep) (superficial) ([facility]) Unspecified sleep apnea PAST SURGICAL HISTORY Procedure Laterality Date ANESTHESIA HERNIA REPAIR LOWER ABDOMEN NOS 04/2004,05/11 gortex put in on 05/11 then taken out06/08 ARTHRP KNE CONDYLE&PLATU MEDIAL&LAT COMPARTMENTS 1990 bilateral total knee s([place]) ARTHRP KNE CONDYLE&PLATU MEDIAL&LAT COMPARTMENTS 10/24/04 bilateral total knee revisions DELIVERY ONLY , low cervical CHOLECYSTECTOMY COLONOSCOPY FLX DX W/COLLJ SPEC WHEN PFRMD 11/17/2017 Colonoscopy DEBRIDEMENT SUBCUTANEOUS TISSUE 20 SQ CM/< 02/17/07 LEFT LEG DEBRIDEMENT SUBCUTANEOUS TISSUE 20 SQ CM/< [id number] LEFT LEG DEBRIDEMENT SUBCUTANEOUS TISSUE 20 SQ CM/< [id number] LEFT LEG DEBRIDEMENT SUBCUTANEOUS TISSUE 20 SQ CM/< [id number] LEFT LEG DEBRIDEMENT SUBCUTANEOUS TISSUE 20 SQ CM/< [id number] LEFT LEG DEBRIDEMENT SUBCUTANEOUS TISSUE 20 SQ [...] empty stomach. For thyroid.^Disp: 90 tablet^Rfl: 3 Tgdjmtevpyd-Stepqfshc-Msp C-Mn (GLUCOSAMINE CHONDROITIN MAXSTR) 500-400 mg cap^Take 1 capsule by mouth three times daily.^Disp: 90 capsule^Rfl: 11 lisinopril-hydroCHLOROthiazide (PRINZIDE,ZESTORETIC) 10-12.5 mg per tablet^Take 1 tablet by mouth once daily.^Disp: 30 tablet^Rfl: 11 (Patient not taking: Reported on 06/30/2022) COMPOUNDED PRESCRIPTION^Stair lift^Disp: 1 Device^Rfl: 0 DAILY-LUISITO tablet^TAKE 1 TABLET BY MOUTH ONCE DAILY.^Disp: 30 tablet^Rfl: 11 mrkebgh-cpmslwkxx-msngvyx D3 (CALCIUM 500+D) 500 mg(1,250mg) -200 unit [...] 7:59 AM EDT [facility] Date: 07/30/2022 Patient name: Mari [...] or double vision) Respiratory: Negative (No Cough, Htkhwbfgv-rl-ngfipg, Dyspnea on exertion, wheezing) Cardiovascular: Negative (No [...] and thrombophlebitis of femoral vein (deep) (superficial) ([facility]) Unspecified sleep apnea PAST SURGICAL HISTORY Procedure Laterality Date ANESTHESIA HERNIA REPAIR LOWER ABDOMEN NOS 04/2004,05/11 gortex put in on 05/11 then taken out06/08 ARTHRP KNE CONDYLE&PLATU MEDIAL&LAT COMPARTMENTS 1990 bilateral total knee s([place]) ARTHRP KNE CONDYLE&PLATU MEDIAL&LAT COMPARTMENTS 10/24/04 bilateral total knee revisions DELIVERY ONLY , low cervical CHOLECYSTECTOMY COLONOSCOPY FLX DX W/COLLJ SPEC WHEN PFRMD 11/17/2017 Colonoscopy DEBRIDEMENT SUBCUTANEOUS TISSUE 20 SQ CM/< 02/17/07 LEFT LEG DEBRIDEMENT SUBCUTANEOUS TISSUE 20 SQ CM/< [id number] LEFT LEG DEBRIDEMENT SUBCUTANEOUS TISSUE 20 SQ CM/< [id number] LEFT LEG DEBRIDEMENT SUBCUTANEOUS TISSUE 20 SQ CM/< [id number] LEFT LEG DEBRIDEMENT SUBCUTANEOUS TISSUE 20 SQ CM/< [id number] LEFT LEG DEBRIDEMENT SUBCUTANEOUS TISSUE 20 SQ [...] daily. Take on empty stomach. For thyroid. Sheavbpxnuu-Vvezuoggm-Hfg C-Mn (GLUCOSAMINE CHONDROITIN MAXSTR) 500-400 mg cap Take 1 capsule by mouth three times daily. lisinopril-hydroCHLOROthiazide (PRINZIDE,ZESTORETIC) 10-12.5 mg per tablet Take 1 tablet by mouth once daily. (Patient not taking: Reported on 06/30/2022) COMPOUNDED PRESCRIPTION Stair lift DAILY-LUISITO tablet TAKE 1 TABLET BY MOUTH ONCE DAILY. mapbimv-dswvfhqsz-doyogkk D3 (CALCIUM 500+D) 500 mg(1,250mg) -200 unit [...] appropriate Assessment and Plan: As noted above Julian protocol documentation / Pre-Procedure Checklist: Consent: Obtained [...] Test stimulation was conducted per the SPR contact representative successfully. The finder needle was then [...] programming and be discharged home with their forklift driver. The patient was instructed to monitor [...] MBA Pain Management [facility] documented in this encounterMercy Health Tiffin Hospital04-10-2023 Miscellaneous Notes* Telephone Encounter - Mulugeta Jennings [...] patient. Patricia Mcqueen Pss documented in this encounterMercy Health Tiffin Hospital04-03-2023 History and physical note Author Dr. Jackson [facility] July 07, 2022 6:17pm Note Date/Time July 07, 2022 1:51 pm [facility] Medical Records Department [address] [place] [address] History & Physical Exam 07/07/22 1348 MR#: [id number] Acct: [id number] Name: MARI LOPEZ Rep #:[id number] : 1940 82 From: Jas Bethea NP ORTHODONTIC BAND MAKER-C PCP: Dr. Lizy Capone MD Status:DC E SD Location: [facility] History [...] and diuretics.? She was seen by the manager logistic and had Lasix dosageadjustments to 80 mg [...] Signs: See EMR Visit Reasons:?4 M FU Utility Sales And Service Manager Required: No Accompanied by: None Is patient [...] postponed on account of [facility]. At this time, shewill proceed with heart catheterization and depending on results, further recommendations be made. 07/07/22 1351 <Electronically signed by Jas BARAHONA> Cosigner Signature (if applicable): 07/07/22 1817 <Electronically signed by Norberto Jackson MD> CC: ORTHODONTIC BAND MAKER-C Jas Bethea; Dr. Norberto Jackson MD; Dr. Lizy Capone MD~ Signed [facility] Work Phone: [phone]) 825-647103-29-2023 Nurse Note* Celia Crowell LPN - 07/02/2022 1:11 PM EDT Tuna Purse Seiner's Name: Richard Are you on a blood [...] to receive one? N documented in this encounterMercy Health Tiffin Hospital03-29-2023 History of Present illness Narrative* Roque Delgado MD - 07/02/2022 8:29 AM EDT Procedure cancelled, patient on antibiotic for UTI. Will reschedule. Roque Delgado III, MD, DENNIS documented in this encounterMercy Health Tiffin Hospital03-28-2023 Miscellaneous Notes* Telephone Encounter - Esme Chi [...] appropriately. Mulugeta Jennings APRN.CNP documented in this encounterMercy Health Tiffin Hospital03-27-2023 Instructions* Patient Instructions* Ragini Gomes APRN.CNP - 06/30/2022 10:56 AM EDT Images from the original note were not included. INFORMATION ON URODYNAMICS (BLADDER FUNCTION TEST) Getting Ready for the Test You do not have to fast before the test. Begin to drink 24-32 ounces of fluid (water, cranberry juice, milk, herbal tea) 90 minutes prior tothe test so you arrive at the [facility] with the urge to empty your [...] your bladder when you arrive at the [facility]. Speak with a nurse if you feel you must empty your bladder. If you are taking antibiotics for a urinary tract infection (UTI) or bladder infection, notify yourphysician's office immediately. We may reschedule your bladder test. Bring a list of all prescribed and mhej-hfy-tognkfk medications you are taking. If you should need assistance due to a language barrier or medical needs/condition, please notify the spares scheduler when making your appointment and one will be provided for you ([phone]). If you are taking overactive bladder medications [...] bladder symptoms. These include: Alcoholic beverages Cantaloupe [place] and spicy foods Apples & apple juice [place] fruit Chocolate Tea & Coffee (including decaffeinated) [...] then relax for 10 seconds. Repeat these [id number] times and do this at least 4 [...] colors/dyes Tomatoes Beer Chocolate Spicy foods Wine [place] syrup [place] juices and fruit Caffeine: Sugar Carbonated fluids [...] to take these medications. documented in this encounterMercy Health Tiffin Hospital03-27-2023 History of Present illness Narrative* Ragini Gomes APRN.CNP - 06/30/2022 9:30 AM EDT Female Pelvic Medicine & Reconstructive Surgery Consult CHIEF COMPLAINT: Mari Lopez is a 82 year old female who presents for consultation requested by Miryam Orozco APRN.CNP for an opinion regarding Female stress incontinence. 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) Quite a bit somewhat [...] CONDYLE&PLATU MEDIAL&LAT COMPARTMENTS 1990 bilateral total knee s([place]) ARTHRP KNE CONDYLE&PLATU MEDIAL&LAT COMPARTMENTS 10/24/04 bilateral total knee revisions DELIVERY ONLY , low cervical CHOLECYSTECTOMY COLONOSCOPY FLX DX W/COLLJ SPEC WHEN PFRMD 11/17/2017 Colonoscopy DEBRIDEMENT SUBCUTANEOUS TISSUE 20 SQ CM/< 02/17/07 LEFT LEG DEBRIDEMENT SUBCUTANEOUS TISSUE 20 SQ CM/< [id number] LEFT LEG DEBRIDEMENT SUBCUTANEOUS TISSUE 20 SQ CM/< [id number] LEFT LEG DEBRIDEMENT SUBCUTANEOUS TISSUE 20 SQ CM/< [id number] LEFT LEG DEBRIDEMENT SUBCUTANEOUS TISSUE 20 SQ CM/< [id number] LEFT LEG DEBRIDEMENT SUBCUTANEOUS TISSUE 20 SQ [...] daily. Take on empty stomach. For thyroid. Hmzfnonakgu-Cvvrrffoo-Puy C-Mn (GLUCOSAMINE CHONDROITIN MAXSTR) 500-400 mg cap Take 1 capsule by mouth three times daily. COMPOUNDED PRESCRIPTION Stair lift DAILY-LUISITO tablet TAKE 1 TABLET BY MOUTH ONCE DAILY. loualav-okomcugqs-jngfnhk D3 (CALCIUM 500+D) 500 mg(1,250mg) -200 unit [...] and ROS obtained by others. Ragini Gomes APRN.ACCOUNTANT Data Warehousing Engineer offered: Patient declines. OBJECTIVE: BP 135/80 Pulse [...] which included preparing to see the patient, pgrg-gl-joqx patient care, completing clinical documentation, obtaining and/or reviewing separately obtained history, performing a medically appropriate examination, counseling and educating the pat ient/family/caregiver, and ordering medications, tests, or procedures. My final recommendations will be communicated back to the requesting physician by way of shared Medical record or letter via mail. Ragini Gomes APRN.CNP documented in this encounterMercy Health Tiffin Hospital03-24-2023 Miscellaneous Notes* Telephone Encounter - Josselin Baxter [...] Miryam. Mulugeta Jennings APRN.CNP documented in this encounterMercy Health Tiffin Hospital03-23-2023 Instructions* Patient Instructions* Miryam Orozco APRN.CNP - [...] to Dr. Hernandez, she is located in [facility], 2nd floor. Keep scheduled appointments with Dr. Acosta and Dr. Delgado Follow up in 3 months or sooner as needed. documented in this encounterMercy Health Tiffin Hospital03-23-2023 History of Present illness Narrative* Miryam Orozco [...] on the right side July 02 in [place]. Knee Pain: Would like a prescription for [...] and thrombophlebitis of femoral vein (deep) (superficial) ([facility]) Unspecified sleep apnea PAST SURGICAL HISTORY Procedure Laterality Date ANESTHESIA HERNIA REPAIR LOWER ABDOMEN NOS 04/2004,05/11 gortex put in on 05/11 then taken out06/08 ARTHRP KNE CONDYLE&PLATU MEDIAL&LAT COMPARTMENTS 1990 bilateral total knee s([place]) ARTHRP KNE CONDYLE&PLATU MEDIAL&LAT COMPARTMENTS 10/24/04 bilateral total knee revisions DELIVERY ONLY , low cervical CHOLECYSTECTOMY COLONOSCOPY FLX DX W/COLLJ SPEC WHEN PFRMD 11/17/2017 Colonoscopy DEBRIDEMENT SUBCUTANEOUS TISSUE 20 SQ CM/< 02/17/07 LEFT LEG DEBRIDEMENT SUBCUTANEOUS TISSUE 20 SQ CM/< [id number] LEFT LEG DEBRIDEMENT SUBCUTANEOUS TISSUE 20 SQ CM/< [id number] LEFT LEG DEBRIDEMENT SUBCUTANEOUS TISSUE 20 SQ CM/< [id number] LEFT LEG DEBRIDEMENT SUBCUTANEOUS TISSUE 20 SQ CM/< [id number] LEFT LEG DEBRIDEMENT SUBCUTANEOUS TISSUE 20 SQ [...] daily. Take on empty stomach. For thyroid. Gasmbaymvgb-Pqgrzznvm-Fob C-Mn (GLUCOSAMINE CHONDROITIN MAXSTR) 500-400 mg cap Take 1 capsule by mouth three times daily. lisinopril-hydroCHLOROthiazide (PRINZIDE,ZESTORETIC) 10-12.5 mg per tablet Take 1 tablet by mouth once daily. COMPOUNDED PRESCRIPTION Stair lift DAILY-LUISITO tablet TAKE 1 TABLET BY MOUTH ONCE DAILY. pfemiwj-gllbwvnmh-tnqfuhe D3 (CALCIUM 500+D) 500 mg(1,250mg) -200 unit [...] discussed and patient voices understanding. Miryam Orozco APRN.ACCOUNTANT This note was partially generated using [employer] voice recognition system. Note was reviewed for accuracy. There may be minor misspellings or grammar miscues with [employer] voice recognition. documented in this encounterMercy Health Tiffin Hospital03-01-2023 Miscellaneous Notes* Addendum Note - Roque Delgado [...] with Roque Delgado MD at [address], [place] [address]. Mari Lopez has been scheduled for Lead pull - right side on 09/04/22 at 9:45am, with Roque Delgado MD at [address], [place] [address]. Mari Lopez has been scheduled for SPR device placement - left side on 07/30/22 at 1pm, with Roque Delgado MD at [address], [place] [address]. Mari Lopez has been scheduled for Lead pull - left side on 10/02/22 at 9:45am, with Roque Delgado MD at [address], [place] [address]. Please call in Xanax and Antibiotics to e- [id number] [place] [address] - [address] - [phone] [phone] [facility] [id number] Patient has allergies to Allergies: Aspirin Intolerance Bactrim [Sulfametho* Hives Comment:Blisters: head to toe Ibuprofen Rash Kefzol [Cefazolin S* Hives Peanut Butter [Othe* Comment:throat swelling, convulsions Sulfa (Sulfonamide * Hives, Unknown Comment:Blisters: head to toe Mailed patient pre procedure instructions and appointment reminders to patient. Samantha Marx Volunteer Recruitment Coordinator to Dr. Roque Delgado, Spinal Cord Stimulator, Peripheral Nerve Stimulator, [facility] [address] [place] [address] P: [phone] ext. [phone] F: [phone] documented in this encounterMercy Health Tiffin Hospital02-24-2023 Miscellaneous Notes* Telephone Encounter - Samantha Quinones - 05/30/2022 10:45 AM EST I have attempted to contact this patient by phone, Spoke with someone that took a message stating to give me a call back at [phone] EXT [phone]. I have received the approval for the SPR device Cam was trying to get her scheduled. Samantha Marx documented in this encounterMercy Health Tiffin Hospital02-20-2023 Miscellaneous Notes* Telephone Encounter - Erin Dillon RN - 05/26/2022 9:03 AM EST Patient referred to urogynecology for urinary incontinence. Currently, Dr. Shafer is only seeing surgical consults. Patient can be scheduled with urogynecology ORTHODONTIC BAND MAKER- [facility]. [facility] information provided. documented in this encounterMercy Health Tiffin Hospital02-13-2023 Miscellaneous Notes* Telephone Encounter - Miryam Orozco [...] morning for her 8 am appointment with Miyram Rainey d/t having cold symptoms (cough and nasal congestion). Patient called at 8:14 am. Offered to schedule another appointment. Patient reports she will call back when feeling better andhas her calendar available. Olga Dillard RN documented in this encounterMercy Health Tiffin Hospital02-10-2023 History of Present illness Narrative* Jae Cagle [...] CONDYLE&PLATU MEDIAL&LAT COMPARTMENTS 1990 bilateral total knee s([place]) ARTHRP KNE CONDYLE&PLATU MEDIAL&LAT COMPARTMENTS 10/24/04 bilateral total knee revisions DELIVERY ONLY , low cervical CHOLECYSTECTOMY COLONOSCOPY FLX DX W/COLLJ SPEC WHEN PFRMD 11/17/2017 Colonoscopy DEBRIDEMENT SUBCUTANEOUS TISSUE 20 SQ CM/< 02/17/07 LEFT LEG DEBRIDEMENT SUBCUTANEOUS TISSUE 20 SQ CM/< [id number] LEFT LEG DEBRIDEMENT SUBCUTANEOUS TISSUE 20 SQ CM/< [id number] LEFT LEG DEBRIDEMENT SUBCUTANEOUS TISSUE 20 SQ CM/< [id number] LEFT LEG DEBRIDEMENT SUBCUTANEOUS TISSUE 20 SQ CM/< [id number] LEFT LEG DEBRIDEMENT SUBCUTANEOUS TISSUE 20 SQ [...] daily. Take on empty stomach. For thyroid. Jplibghssst-Vwyjwbopx-Hfc C-Mn (GLUCOSAMINE CHONDROITIN MAXSTR) 500-400 mg cap Take 1 capsule by mouth three times daily. lisinopril-hydroCHLOROthiazide (PRINZIDE,ZESTORETIC) 10-12.5 mg per tablet Take 1 tablet by mouth once daily. COMPOUNDED PRESCRIPTION Stair lift DAILY-LUISITO tablet TAKE 1 TABLET BY MOUTH ONCE DAILY. krzxaww-bliagfuhz-kwdnlax D3 (CALCIUM 500+D) 500 mg(1,250mg) -200 unit [...] entered by the nurse and reviewed by ok Nursing Notes: Mari Umaña LPN 05/13/2022 3:25 [...] (89 F), height 157.5 cm (5' 2), .3 kg (285 lb), SpO2 91 %. HEENT: [...] patient there is a new urogynecologist at [facility] Dr. Jessica Munoz forward this note to her for her consideration/evaluation or for urologic incontinence issues. Diagnoses: (A04.72) C. difficile colitis (primary encounter diagnosis) (K62.5) Rectal bleeding (R19.5) Change in stool (W19.XXXA) Fall, initial encounter My findings have been communicated to [facility] via shared medical record. This note will be forwarded to Lizy Capone MD. Return to Clinic: The patient is instructed to follow-up with me as needed. Jae Cagle MD documented in this encounterMercy Health Tiffin Hospital02-09-2023 Miscellaneous Notes* Telephone Encounter - Ralph Rodriguez [...] No 9. Does this procedure require a forklift driver? Yes If yes, has patient been notified that a forklift driver is needed and must be present [...] their 2nd dose of the COVID vaccine.) Raplh Rodriguez documented in this encounterMercy Health Tiffin Hospital02-07-2023 History of Present illness Narrative* Alcon Santiago [...] 13, 2022 4:33 PM documented in this encounterMercy Health Tiffin Hospital02-07-2023 Nurse Note* Mari Umaña LPN - 05/13/2022 [...] 2017 Mari Umaña LPN documented in this encounterMercy Health Tiffin Hospital01-31-2023 Miscellaneous Notes* Telephone Encounter - Alfred Casanova [...] persist/worsen. Noemy Wilson APRN.CNP documented in this encounterMercy Health Tiffin Hospital01-25-2023 Miscellaneous Notes* Telephone Encounter - Miryam Orozco [...] you. Miryam Orozco APRN.CNP documented in this encounterMercy Health Tiffin Hospital01-24-2023 History of Present illness Narrative* Weston Herman, [...] 29, 2022 8:40 AM documented in this encounterMercy Health Tiffin Hospital01-23-2023 Miscellaneous Notes* Telephone Encounter - Alex Lackey [...] right hip was added. documented in this encounterMercy Health Tiffin Hospital01-12-2023 Miscellaneous Notes* Telephone Encounter - Viridiana Russ [...] advise. Allison Do Pss documented in this encounterMercy Health Tiffin Hospital01-11-2023 Miscellaneous Notes* Telephone Encounter - Mulugeta Jennings [...] advise. Minna Blue LPN documented in this encounterMercy Health Tiffin Hospital11-29-2022 History of Present illness Narrative* Natalia Fowler [...] 04, 2022 5:23 PM documented in this encounterMercy Health Tiffin Hospital11-15-2022 Miscellaneous Notes* Telephone Encounter - Alex Lackey [...] pm. Viridiana Russ LPN documented in this encounterMercy Health Tiffin Hospital10-27-2022 Miscellaneous Notes* Telephone Encounter - Bre Lamar [...] COVID vaccine.) Bre Lamar documented in this encounterMercy Health Tiffin Hospital10-27-2022 History of Present illness Narrative* Kaleigh Rodney [...] PM EDT [facility] [place] [facility] Today's Date: 01/30/2022 Last Visit: 11/28/2021 [...] bony destructive process. Lumbar: There are five tzs-zrp-htjmrre lumbar vertebrae. No acute fracture or subluxations [...] was advised that they will need a forklift driver for after the procedure and that if no forklift driver is available and on site at [...] 09/19/2021 Completed and reviewed, moderate risk Functional Pentecostal: Physical Therapy (Land-based) - Continue Additional Studies: [...] [facility] documented in this encounterMercy Health Tiffin Hospital10-17-2022 Miscellaneous Notes* Telephone Encounter - Mulugeta Jennings [...] in. Shruthi Robbins Pss documented in this encounterMercy Health Tiffin Hospital10-06-2022 Miscellaneous Notes* Telephone Encounter - Minna Blue LPN - 01/09/2022 11:03 AM EDT Patient notified of results, verbalizes understanding of instructions. Minna Blue LPN * Telephone Encounter - Miryam Orozco APRN.ACCOUNTANT - 01/08/2022 7:11 PM EDT Can you please call the patient and let her know that I reviewed her lab and ultrasound results. Ultrasound of abdomen was within normal limits. No ascites were noted. Her BNP however has gone up to 783. This can be significant for congestive heart failure. I would recommend that she have a follow-up with her assistant professor of education. Lab results will be faxed to their office. Mild improvement with kidney function however I still would recommend that she follow-up with nephrology. Please let me know if she has any questions. Thank you. Miryam Orozco APRN.ACCOUNTANT documented in this encounterMercy Health Tiffin Hospital10-05-2022 Nurse Note* Carlito Richards RN - 01/08/2022 11:46 AM EDT Patient denies any numbness/tingling. documented in this encounterMercy Health Tiffin Hospital10-05-2022 Surgical operation note* Operative Report - Roque Delgado MD - 01/08/2022 11:16 AM EDT OPERATIVE/PROCEDURE REPORT LOG ID: [id number] SURGERY/PROCEDURE DATE: 01/08/2022 INCISION/PROCEDURE START TIME: 11:20 AM INCISION CLOSE/PROCEDURE END TIME: 11:34 AM SURGEON(S)/PROCEDURALIST(S) AND ACETYLENE PLANT OPERATOR(S): Surgeon(s) and Role: * Roque Delgado MD [...] 2022 TIME: 11:38 AM documented in this encounterMercy Health Tiffin Hospital10-05-2022 History and physical note * Roque Delgado [...] capsule by mouth once daily. 01/07/2022 Yes Utiporyrhww-Ezogbayyp-Tck C-Mn (GLUCOSAMINE CHONDROITIN MAXSTR) 500-400 mg cap Take 1 capsule by mouth three times daily. 01/07/2022 Yes lisinopril-hydroCHLOROthiazide (PRINZIDE,ZESTORETIC) 10-12.5 mg per tablet Take 1 tablet by mouth once daily. Yes DAILY-LUISITO tablet TAKE 1 TABLET BY MOUTH ONCE DAILY. 01/07/2022 Yes ofhgizp-mspkcbjds-pzxmqqr D3 (CALCIUM 500+D) 500 mg(1,250mg) -200 unit [...] 2022 TIME: 10:40 AM documented in this encounterMercy Health Tiffin Hospital10-04-2022 Miscellaneous Notes* Telephone Encounter - Lora Najera RN - 01/07/2022 11:48 AM EDT Patient calls and requests that nephrology referral, office notes, and labs to be faxed to Dr. Murillo at [phone]. Faxed as requested. Lora Najera RN documented in this encounterMercy Health Tiffin Hospital10-03-2022 History of Present illness Narrative* Allison Pryor, [...] 45 Allison Pryor PT documented in this encounterMercy Health Tiffin Hospital09-29-2022 Instructions* Patient Instructions* Miryam Orozco APRN.CNP - [...] Schedule appointment with Nephrology. documented in this encounterMercy Health Tiffin Hospital09-29-2022 History of Present illness Narrative* Miryam Orozco [...] since 12/26/2021 Patient had office visit with [facility] due to lymphedema, labs were ordered, BNPelevated at 244.1, Per provider note patient has new abdominal ascites in addition to bilateral lower extremity lymphedema. Patient does follow with cardiology at [facility], Dr. Jackson. Bun 43, Creatinine: 1.45. Last Echo completed in September showed: PAST MEDICAL HISTORY: PAST MEDICAL HISTORY Diagnosis Date Chronic airway obstruction, not elsewhere classified Essential hypertension, benign Insomnia 07/30/2011 Obesity, unspecified Open wound of knee, leg (except thigh), and ankle, complicated Other pulmonary embolism and infarction Phlebitis and thrombophlebitis of femoral vein (deep) (superficial) ([facility]) Unspecified sleep apnea PAST SURGICAL HISTORY Procedure Laterality Date ANESTHESIA HERNIA REPAIR LOWER ABDOMEN NOS 04/2004,05/11 gortex put in on 05/11 then taken out06/08 ARTHRP KNE CONDYLE&PLATU MEDIAL&LAT COMPARTMENTS 1990 bilateral total knee s([place]) ARTHRP KNE CONDYLE&PLATU MEDIAL&LAT COMPARTMENTS 10/24/04 bilateral total knee revisions DELIVERY ONLY , low cervical CHOLECYSTECTOMY COLONOSCOPY FLX DX W/COLLJ SPEC WHEN PFRMD 11/17/2017 Colonoscopy DEBRIDEMENT SUBCUTANEOUS TISSUE 20 SQ CM/< 02/17/07 LEFT LEG DEBRIDEMENT SUBCUTANEOUS TISSUE 20 SQ CM/< [id number] LEFT LEG DEBRIDEMENT SUBCUTANEOUS TISSUE 20 SQ CM/< [id number] LEFT LEG DEBRIDEMENT SUBCUTANEOUS TISSUE 20 SQ CM/< [id number] LEFT LEG DEBRIDEMENT SUBCUTANEOUS TISSUE 20 SQ CM/< [id number] LEFT LEG DEBRIDEMENT SUBCUTANEOUS TISSUE 20 SQ [...] Take 1 capsule by mouth once daily. Kddstkhsdtr-Pajekgxof-Cjc C-Mn (GLUCOSAMINE CHONDROITIN MAXSTR) 500-400 mg cap Take 1 capsule by mouth three times daily. lisinopril-hydroCHLOROthiazide (PRINZIDE,ZESTORETIC) 10-12.5 mg per tablet Take 1 tablet by mouth once daily. COMPOUNDED PRESCRIPTION Stair lift DAILY-LUISITO tablet TAKE 1 TABLET BY MOUTH ONCE DAILY. zzgchuu-sizrrwjdp-fbepvvd D3 (CALCIUM 500+D) 500 mg(1,250mg) -200 unit [...] APRN.CJ This note was partially generated using [employer] voice recognition system. Note was reviewed for accuracy. There may be minor misspellings or grammar miscues with [employer] voice recognition. documented in this encounterMercy Health Tiffin Hospital09-28-2022 History of Present illness Narrative* Allison Pryor, [...] 47 Allison Pryor PT documented in this encounterMercy Health Tiffin Hospital09-22-2022 Instructions* Patient Instructions* Avis Marrufo APRN.CJ - 12/26/2021 2:48 PM EDT Activity as tolerated Use Ice and/or heat as tolerated as needed documented in this encounterMercy Health Tiffin Hospital09-22-2022 History of Present illness Narrative* Avis Marrufo [...] Total Time Spent: 12 minutes Avis Marrufo APRN.ACCOUNTANT Review of Systems Constitutional: Negative for chills, [...] suspiciousactivity was identified. 12/26/2021 by Avis Marrufo APRN.ACCOUNTANT documented in this encounterMercy Health Tiffin Hospital09-21-2022 Surgical operation note* Operative Report - Roque Delgado MD - 12/25/2021 12:37 PM EDT OPERATIVE/PROCEDURE REPORT LOG ID: [id number] SURGERY/PROCEDURE DATE: 12/25/2021 INCISION/PROCEDURE START TIME: 12:44 PM INCISION CLOSE/PROCEDURE END TIME: 12:54 PM SURGEON(S)/PROCEDURALIST(S) AND ACETYLENE PLANT OPERATOR(S): Surgeon(s) and Role: * Roque Delgado MD [...] 2021 TIME: 12:57 PM documented in this encounterMercy Health Tiffin Hospital09-21-2022 History and physical note * Roque Delgado [...] 2021 TIME: 12:28 PM documented in this encounterMercy Health Tiffin Hospital09-19-2022 Miscellaneous Notes* Telephone Encounter - Roque Delgado MD - 12/23/2021 3:54 PM EDT Neurontin: Has refills at pharmacy. * Telephone Encounter - Felicia Gabriel MA - 12/23/2021 3:13 PM EDT Patient has several refills at pharmacy. Felicia Gabriel MA documented in this encounterMercy Health Tiffin Hospital09-12-2022 History of Present illness Narrative* Allison Pryor, PT - 12/16/2021 4:11 PM EDT [...] 50 Allison Pryor PT documented in this encounterMercy Health Tiffin Hospital09-07-2022 History of Present illness Narrative* Allison Pryor [...] 44 Allison Pryor PT documented in this encounterMercy Health Tiffin Hospital08-29-2022 History of Present illness Narrative* Allison Pryor [...] 45 Allison Pryor PT documented in this encounterMercy Health Tiffin Hospital08-23-2022 Miscellaneous Notes* Telephone Encounter - Lizy Capone [...] notify patient. 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 Patient education as noted. Self-Custodial Management: 1: Reviewed education of lymphedema and [...] Total Treatment Time Minutes (timed/untimed): 55 Allison rPyor PT documented in this encounterMercy Health Tiffin Hospital08-09-2022 History of Present illness Narrative* Jerod Flynn [...] 24 Total Treatment Time Minutes (timed/untimed): 24 eJrod Flynn PT documented in this encounterMercy Health Tiffin Hospital08-02-2022 History of Present illness Narrative* Jerod Flynn [...] toward set goals. PLAN FOR NEXT VISIT: DC SUBJECTIVE: Patient Reason for Visit: Pt states [...] 41 Jerod Flynn PT documented in this encounterMercy Health Tiffin Hospital07-21-2022 Miscellaneous Notes* Telephone Encounter - Alex Lackey [...] and advise. Rachel Padilla documented in this encounterMercy Health Tiffin Hospital07-19-2022 History of Present illness Narrative* Jerod Flynn [...] 42 Jerod Flynn PT documented in this encounterMercy Health Tiffin Hospital07-18-2022 History of Present illness Narrative* Cayla Perez [...] 22, 2021 1:42 PM documented in this encounterMercy Health Tiffin Hospital06-28-2022 Miscellaneous Notes* Telephone Encounter - Earlene Rodriguez Ma - 10/01/2021 11:33 AM EDT Spoke to patient to clarify refill request. Patient is requesting flexeril not gabapentin as statedbelow please send Patient last visit with PCP 07/16/21 Follow up appointment scheduled none Earlene Rodriguez Ma * Telephone Encounter - Kalya Castro - 10/01/2021 11:09 AM EDT Patient has been identified by name and date of : Yes Pending Prescriptions Disp Refills GABAPENTIN 100 MG CAPSULE 180 capsule 2 Sig: Take 2 capsules by mouth three times daily for 30 days. MARJ: No RX INSTRUCTIONS: Patient aware RX will be sent to pharmacy. No need to notify patient. Kayla Castro documented in this encounterMercy Health Tiffin Hospital06-17-2022 History of Present illness Narrative* Svetlana José [...] 20, 2021 1:27 PM documented in this encounterMercy Health Tiffin Hospital06-16-2022 Miscellaneous Notes* Telephone Encounter - Bre Lamar - 09/19/2021 2:42 PM EDT Sent in consult to physical therapy, confirmation number is [id number]. documented in this encounterMercy Health Tiffin Hospital06-16-2022 Instructions* Patient Instructions* Avis Marrufo APRN.CNP - 09/19/2021 9:52 AM EDT Activity as tolerated Use Ice and/or heat as tolerated as needed documented in this encounterMercy Health Tiffin Hospital06-16-2022 History of Present illness Narrative* Avis Marrufo APRN.CNP - 09/19/2021 9:20 AM EDT [facility] [place] [facility] Today's Date: 09/19/2021 Last Visit: N/A [...] Medication Relaxation;Positioning;Heat;Massage Comments - - Pain Assessment (RN/DRY CLIPPER TENDER) - - Current Pain Medications: o Opioids: [...] abnormality. Degenerative changes. Scoliosis Lower thorax: Unremarkable. Planishing Hammer Operator (topogram) images: No additional findings. Electrodiagnostic Study (EMG): None Recent labs: Creatinine Date Value Ref Range Status 07/16/2021 1.72 (H) 0.58 - 0.96 mg/dL Final @lastegfr(gfr)@ No results found for: PCGLUCOSE Pain Procedures: DATE PROCEDURE IMPROVEMENT None to date at this practice Compliance: PDMP website checked and validated. All prescriptions have been APPROPRIATELY filled. No suspiciousactivity was identified. 09/19/2021 by Avis Marrufo APRN.ACCOUNTANT Last Drug screen: Not Applicable Risk Assessment: [...] 09/19/2021 Completed and reviewed, moderate risk Functional Pentecostal: Physical Therapy (Land-based) Additional Studies: XR Thoracic [...] decision making from today's date. Avis Marrufo APRN.ACCOUNTANT Pain Management [facility] * Kaleigh Rodney MA - [...] patient is not nervous/anxious. documented in this encounterMercy Health Tiffin Hospital06-09-2022 Miscellaneous Notes* Telephone Encounter - Alex Lackey [...] MD * Telephone Encounter - Jacki Randall [facility] - 09/12/2021 9:53 AM EDT Patient has [...] patient. Jacki Randall Pss documented in this encounterMercy Health Tiffin Hospital05-05-2022 Miscellaneous Notes* Telephone Encounter - Sofía Crowe - 08/08/2021 9:13 AM EDT Patient scheduled with Avis in [place] on 09/19 Sofía [facility] Eligibility Supervisor Rosalie to [facility] [address] [place] [address] P: [phone] ext [phone] F: [phone] [email or web address] * Telephone Encounter - Allison Cole - 08/08/2021 8:58 AM EDT Pain Management is scheduled out of [place] office. Routing message to [place]. * Telephone Encounter - Alex Lackey Ma [...] IUD in the uterus. Right renal cyst. Typewriter Repairer: CHEIKH Transcribe Date/Time: Jul 25 2021 2:02P Dictated by : MARTHA MOHR MD This examination was interpreted and the report reviewed and electronically signed by: MARTHA MOHR MD on Jul 25 2021 2:53PM EST Results-Findings * * *Final Report* * * DATE OF EXAM: Jul 25 2021 11:09AM [facility] 0531 - CT ABD/PEL WO IVCON [...] abnormality. Degenerative changes. Scoliosis Lower thorax: Unremarkable. Planishing Hammer Operator (topogram) images: No additional findings. documented in this encounterMer[facility]04-[facility] Miscellaneous Notes* Telephone Encounter - Mulugeta eJnnings APRN.CNP - 07/26/2021 11:43 AM EDT Approved. [...] notify patient. Patricia Cole documented in this encounterMer[facility]04-21-[facility]22 History of Present illness Narrative* RT Richa(R) [...] 25, 2021 1:09 PM documented in this encounterMer[facility]04-14-2022 Miscellaneous Notes* Telephone Encounter - Suzette Myles [...] her abd/pelvis as the next step. Lizy Capnoe MD documented in this encounterMer[facility]04-12-2022 History of Present illness Narrative* Latia Weston [...] 16, 2021 10:16 AM documented in this encounterMer[facility]04-12-2022 History of Present illness Narrative* Lizy Capone [...] use of Prilosec 20 mg once daily. 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 and had [...] CONDYLE&PLATU MEDIAL&LAT COMPARTMENTS 1990 bilateral total knee s([place]) ARTHRP KNE CONDYLE&PLATU MEDIAL&LAT COMPARTMENTS 10/24/04 bilateral total knee revisions DELIVERY ONLY , low cervical CHOLECYSTECTOMY COLONOSCOPY FLX DX W/COLLJ SPEC WHEN PFRMD 11/17/2017 Colonoscopy DEBRIDEMENT SUBCUTANEOUS TISSUE 20 SQ CM/< 02/17/07 LEFT LEG DEBRIDEMENT SUBCUTANEOUS TISSUE 20 SQ CM/< [id number] LEFT LEG DEBRIDEMENT SUBCUTANEOUS TISSUE 20 SQ CM/< [id number] LEFT LEG DEBRIDEMENT SUBCUTANEOUS TISSUE 20 SQ CM/< [id number] LEFT LEG DEBRIDEMENT SUBCUTANEOUS TISSUE 20 SQ CM/< [id number] LEFT LEG DEBRIDEMENT SUBCUTANEOUS TISSUE 20 SQ [...] as needed for up to 90 days. Urstffstbgt-Xauukaqst-Ftd C-Mn (GLUCOSAMINE CHONDROITIN MAXSTR) 500-400 mg cap [...] TAKE 1 CAPSULE BY MOUTH ONCE DAILY. xuizltx-cfvgqaljo-syifzpt D3 (CALCIUM 500+D) 500 mg(1,250mg) -200 unit [...] Past Histories independently gathered by the clinical lan support specialist and the remaining scribed note accurately describes [...] AM. Suzette Myles Ma documented in this encounterMercy [facility]08-21-2017 History of Past illness Narrative* Problem Noted Date Resolved Date Screening for colon cancer 11/24/201607/12 Overview: Added automatically from request for surgery [id number] Pain in joint, lower leg 11/14/2008 010 MASS IN SUBCUTANEOUS TISSUE 07/21/200808/04 Non-healing surgical wound 03/16/200705/18 Other injury of other sites of trunk 01/16/2006 07/01/2007 ASA CLASS III 05/07/2005 07/12/2021 Other ventral hernia without mention of obstruction or gangrene 03/26/2004 07/01/2007 THROMBOPHLEBITIS NOS(aka DVT) 07/21/2003 PULMON EMBOLISM/INFARCT(aka EMBOLISM) 07/21/2003 08/21/2009 documented as of this encounter (statuses as of 07/16/2021) [facility] of Past illness Narrative* Problem Noted Date Resolved Date Screening for colon cancer 11/24/201607/12 Overview: Added automatically from request for surgery [id number] Pain in joint, lower leg 11/14/2008 010 MASS IN SUBCUTANEOUS TISSUE 07/21/200808/04 Non-healing surgical wound 03/16/200705/18 Other injury of other sites of trunk 01/16/2006 07/01/2007 ASA CLASS III 05/07/2005 07/12/2021 Other ventral hernia without mention of obstruction or gangrene 03/26/2004 07/01/2007 THROMBOPHLEBITIS NOS(aka DVT) 07/21/2003 PULMON EMBOLISM/INFARCT(aka EMBOLISM) 07/21/2003 08/21/2009 documented as of this encounter (statuses as of 07/18/2021) [facility] Narrative* Problem Noted Date Resolved Date Screening for colon cancer 11/24/201607/12 Overview: Added automatically from request for surgery [id number] Pain in joint, lower leg 11/14/2008 010 MASS IN SUBCUTANEOUS TISSUE 07/21/200808/04 Non-healing surgical wound 03/16/200705/18 Other injury of other sites of trunk 01/16/2006 07/01/2007 ASA CLASS III 05/07/2005 07/12/2021 Other ventral hernia without mention of obstruction or gangrene 03/26/2004 07/01/2007 THROMBOPHLEBITIS NOS(aka DVT) 07/21/2003 PULMON EMBOLISM/INFARCT(aka EMBOLISM) 07/21/2003 08/21/2009 documented as of this encounter (statuses as of 07/26/2021) [facility] Narrative* Problem Noted Date Resolved Date Screening for colon cancer 11/24/201607/12 Overview: Added automatically from request for surgery [id number] Pain in joint, lower leg 11/14/2008 010 MASS IN SUBCUTANEOUS TISSUE 07/21/200808/04 Non-healing surgical wound 03/16/200705/18 Other injury of other sites of trunk 01/16/2006 07/01/2007 ASA CLASS III 05/07/2005 07/12/2021 Other ventral hernia without mention of obstruction or gangrene 03/26/2004 07/01/2007 THROMBOPHLEBITIS NOS(aka DVT) 07/21/2003 PULMON EMBOLISM/INFARCT(aka EMBOLISM) 07/21/2003 08/21/2009 documented as of this encounter (statuses as of 07/26/2021) [facility] Narrative* Problem Noted Date Resolved Date Screening for colon cancer 11/24/201607/12 Overview: Added automatically from request for surgery [id number] Pain in joint, lower leg 11/14/2008 010 MASS IN SUBCUTANEOUS TISSUE 07/21/200808/04 Non-healing surgical wound 03/16/200705/18 Other injury of other sites of trunk 01/16/2006 07/01/2007 ASA CLASS III 05/07/2005 07/12/2021 Other ventral hernia without mention of obstruction or gangrene 03/26/2004 07/01/2007 THROMBOPHLEBITIS NOS(aka DVT) 07/21/2003 PULMON EMBOLISM/INFARCT(aka EMBOLISM) 07/21/2003 08/21/2009 documented as of this encounter (statuses as of 08/08/2021) [facility] Narrative* Problem Noted Date Resolved Date Screening for colon cancer 11/24/201607/12 Overview: Added automatically from request for surgery [id number] Pain in joint, lower leg 11/14/2008 010 MASS IN SUBCUTANEOUS TISSUE 07/21/200808/04 Non-healing surgical wound 03/16/200705/18 Other injury of other sites of trunk 01/16/2006 07/01/2007 ASA CLASS III 05/07/2005 07/12/2021 Other ventral hernia without mention of obstruction or gangrene 03/26/2004 07/01/2007 THROMBOPHLEBITIS NOS(aka DVT) 07/21/2003 PULMON EMBOLISM/INFARCT(aka EMBOLISM) 07/21/2003 08/21/2009 documented as of this encounter (statuses as of 09/12/2021) [facility] Narrative* Problem Noted Date Resolved Date Screening for colon cancer 11/24/201607/12 Overview: Added automatically from request for surgery [id number] Pain in joint, lower leg 11/14/2008 010 MASS IN SUBCUTANEOUS TISSUE 07/21/200808/04 Non-healing surgical wound 03/16/200705/18 Other injury of other sites of trunk 01/16/2006 07/01/2007 ASA CLASS III 05/07/2005 07/12/2021 Other ventral hernia without mention of obstruction or gangrene 03/26/2004 07/01/2007 THROMBOPHLEBITIS NOS(aka DVT) 07/21/2003 PULMON EMBOLISM/INFARCT(aka EMBOLISM) 07/21/2003 08/21/2009 documented as of this encounter (statuses as of 09/19/2021) [facility] Narrative* Problem Noted Date Resolved Date Screening for colon cancer 11/24/201607/12 Overview: Added automatically from request for surgery [id number] Pain in joint, lower leg 11/14/2008 010 MASS IN SUBCUTANEOUS TISSUE 07/21/200808/04 Non-healing surgical wound 03/16/200705/18 Other injury of other sites of trunk 01/16/2006 07/01/2007 ASA CLASS III 05/07/2005 07/12/2021 Other ventral hernia without mention of obstruction or gangrene 03/26/2004 07/01/2007 THROMBOPHLEBITIS NOS(aka DVT) 07/21/2003 PULMON EMBOLISM/INFARCT(aka EMBOLISM) 07/21/2003 08/21/2009 documented as of this encounter (statuses as of 09/19/2021) [facility] Narrative* Problem Noted Date Resolved Date Screening for colon cancer 11/24/201607/12 Overview: Added automatically from request for surgery [id number] Pain in joint, lower leg 11/14/2008 010 MASS IN SUBCUTANEOUS TISSUE 07/21/200808/04 Non-healing surgical wound 03/16/200705/18 Other injury of other sites of trunk 01/16/2006 07/01/2007 ASA CLASS III 05/07/2005 07/12/2021 Other ventral hernia without mention of obstruction or gangrene 03/26/2004 07/01/2007 THROMBOPHLEBITIS NOS(aka DVT) 07/21/2003 PULMON EMBOLISM/INFARCT(aka EMBOLISM) 07/21/2003 08/21/2009 documented as of this encounter (statuses as of 09/21/2021) [facility] Narrative* Problem Noted Date Resolved Date Screening for colon cancer 11/24/201607/12 Overview: Added automatically from request for surgery [id number] Pain in joint, lower leg 11/14/2008 010 MASS IN SUBCUTANEOUS TISSUE 07/21/200808/04 Non-healing surgical wound 03/16/200705/18 Other injury of other sites of trunk 01/16/2006 07/01/2007 ASA CLASS III 05/07/2005 07/12/2021 Other ventral hernia without mention of obstruction or gangrene 03/26/2004 07/01/2007 THROMBOPHLEBITIS NOS(aka DVT) 07/21/2003 PULMON EMBOLISM/INFARCT(aka EMBOLISM) 07/21/2003 08/21/2009 documented as of this encounter (statuses as of 10/01/2021) [facility] Narrative* Problem Noted Date Resolved Date Screening for colon cancer 11/24/201607/12 Overview: Added automatically from request for surgery [id number] Pain in joint, lower leg 11/14/2008 010 MASS IN SUBCUTANEOUS TISSUE 07/21/200808/04 Non-healing surgical wound 03/16/200705/18 Other injury of other sites of trunk 01/16/2006 07/01/2007 ASA CLASS III 05/07/2005 07/12/2021 Other ventral hernia without mention of obstruction or gangrene 03/26/2004 07/01/2007 THROMBOPHLEBITIS NOS(aka DVT) 07/21/2003 PULMON EMBOLISM/INFARCT(aka EMBOLISM) 07/21/2003 08/21/2009 documented as of this encounter (statuses as of 10/21/2021) [facility] Narrative* Problem Noted Date Resolved Date Screening for colon cancer 11/24/201607/12 Overview: Added automatically from request for surgery [id number] Pain in joint, lower leg 11/14/2008 010 MASS IN SUBCUTANEOUS TISSUE 07/21/200808/04 Non-healing surgical wound 03/16/200705/18 Other injury of other sites of trunk 01/16/2006 07/01/2007 ASA CLASS III 05/07/2005 07/12/2021 Other ventral hernia without mention of obstruction or gangrene 03/26/2004 07/01/2007 THROMBOPHLEBITIS NOS(aka DVT) 07/21/2003 PULMON EMBOLISM/INFARCT(aka EMBOLISM) 07/21/2003 08/21/2009 documented as of this encounter (statuses as of 10/22/2021) [facility] Narrative* Problem Noted Date Resolved Date Screening for colon cancer 11/24/201607/12 Overview: Added automatically from request for surgery [id number] Pain in joint, lower leg 11/14/2008 010 MASS IN SUBCUTANEOUS TISSUE 07/21/200808/04 Non-healing surgical wound 03/16/200705/18 Other injury of other sites of trunk 01/16/2006 07/01/2007 ASA CLASS III 05/07/2005 07/12/2021 Other ventral hernia without mention of obstruction or gangrene 03/26/2004 07/01/2007 THROMBOPHLEBITIS NOS(aka DVT) 07/21/2003 PULMON EMBOLISM/INFARCT(aka EMBOLISM) 07/21/2003 08/21/2009 documented as of this encounter (statuses as of 10/22/2021) [facility] Narrative* Problem Noted Date Resolved Date Screening for colon cancer 11/24/201607/12 Overview: Added automatically from request for surgery [id number] Pain in joint, lower leg 11/14/2008 010 MASS IN SUBCUTANEOUS TISSUE 07/21/200808/04 Non-healing surgical wound 03/16/200705/18 Other injury of other sites of trunk 01/16/2006 07/01/2007 ASA CLASS III 05/07/2005 07/12/2021 Other ventral hernia without mention of obstruction or gangrene 03/26/2004 07/01/2007 THROMBOPHLEBITIS NOS(aka DVT) 07/21/2003 PULMON EMBOLISM/INFARCT(aka EMBOLISM) 07/21/2003 08/21/2009 documented as of this encounter (statuses as of 10/24/2021) [facility] Narrative* Problem Noted Date Resolved Date Screening for colon cancer 11/24/201607/12 Overview: Added automatically from request for surgery [id number] Pain in joint, lower leg 11/14/2008 010 MASS IN SUBCUTANEOUS TISSUE 07/21/200808/04 Non-healing surgical wound 03/16/200705/18 Other injury of other sites of trunk 01/16/2006 07/01/2007 ASA CLASS III 05/07/2005 07/12/2021 Other ventral hernia without mention of obstruction or gangrene 03/26/2004 07/01/2007 THROMBOPHLEBITIS NOS(aka DVT) 07/21/2003 PULMON EMBOLISM/INFARCT(aka EMBOLISM) 07/21/2003 08/21/2009 documented as of this encounter (statuses as of 11/05/2021) [facility] Narrative* Problem Noted Date Resolved Date Screening for colon cancer 11/24/201607/12 Overview: Added automatically from request for surgery [id number] Pain in joint, lower leg 11/14/2008 010 MASS IN SUBCUTANEOUS TISSUE 07/21/200808/04 Non-healing surgical wound 03/16/200705/18 Other injury of other sites of trunk 01/16/2006 07/01/2007 ASA CLASS III 05/07/2005 07/12/2021 Other ventral hernia without mention of obstruction or gangrene 03/26/2004 07/01/2007 THROMBOPHLEBITIS NOS(aka DVT) 07/21/2003 PULMON EMBOLISM/INFARCT(aka EMBOLISM) 07/21/2003 08/21/2009 documented as of this encounter (statuses as of 11/12/2021) [facility] Narrative* Problem Noted Date Resolved Date Screening for colon cancer 11/24/201607/12 Overview: Added automatically from request for surgery [id number] Pain in joint, lower leg 11/14/2008 010 MASS IN SUBCUTANEOUS TISSUE 07/21/200808/04 Non-healing surgical wound 03/16/200705/18 Other injury of other sites of trunk 01/16/2006 07/01/2007 ASA CLASS III 05/07/2005 07/12/2021 Other ventral hernia without mention of obstruction or gangrene 03/26/2004 07/01/2007 THROMBOPHLEBITIS NOS(aka DVT) 07/21/2003 PULMON EMBOLISM/INFARCT(aka EMBOLISM) 07/21/2003 08/21/2009 documented as of this encounter (statuses as of 11/13/2021) [facility]arrative* Problem Noted Date Resolved Date Screening for colon cancer 11/24/201607/12 Overview: Added automatically from request for surgery [id number] Pain in joint, lower leg 11/14/2008 010 MASS IN SUBCUTANEOUS TISSUE 07/21/200808/04 Non-healing surgical wound 03/16/200705/18 Other injury of other sites of trunk 01/16/2006 07/01/2007 ASA CLASS III 05/07/2005 07/12/2021 Other ventral hernia without mention of obstruction or gangrene 03/26/2004 07/01/2007 THROMBOPHLEBITIS NOS(aka DVT) 07/21/2003 PULMON EMBOLISM/INFARCT(aka EMBOLISM) 07/21/2003 08/21/2009 documented as of this encounter (statuses as of 11/22/2021) [facility] Narrative* Problem Noted Date Resolved Date Screening for colon cancer 11/24/201607/12 Overview: Added automatically from request for surgery [id number] Pain in joint, lower leg 11/14/2008 010 MASS IN SUBCUTANEOUS TISSUE 07/21/200808/04 Non-healing surgical wound 03/16/200705/18 Other injury of other sites of trunk 01/16/2006 07/01/2007 ASA CLASS III 05/07/2005 07/12/2021 Other ventral hernia without mention of obstruction or gangrene 03/26/2004 07/01/2007 THROMBOPHLEBITIS NOS(aka DVT) 07/21/2003 PULMON EMBOLISM/INFARCT(aka EMBOLISM) 07/21/2003 08/21/2009 documented as of this encounter (statuses as of 11/26/2021) [facility] Narrative* Problem Noted Date Resolved Date Screening for colon cancer 11/24/201607/12 Overview: Added automatically from request for surgery [id number] Pain in joint, lower leg 11/14/2008 010 MASS IN SUBCUTANEOUS TISSUE 07/21/200808/04 Non-healing surgical wound 03/16/200705/18 Other injury of other sites of trunk 01/16/2006 07/01/2007 ASA CLASS III 05/07/2005 07/12/2021 Other ventral hernia without mention of obstruction or gangrene 03/26/2004 07/01/2007 THROMBOPHLEBITIS NOS(aka DVT) 07/21/2003 PULMON EMBOLISM/INFARCT(aka EMBOLISM) 07/21/2003 08/21/2009 documented as of this encounter (statuses as of 12/02/2021) [facility] Narrative* Problem Noted Date Resolved Date Screening for colon cancer 11/24/201607/12 Overview: Added automatically from request for surgery [id number] Pain in joint, lower leg 11/14/2008 010 MASS IN SUBCUTANEOUS TISSUE 07/21/200808/04 Non-healing surgical wound 03/16/200705/18 Other injury of other sites of trunk 01/16/2006 07/01/2007 ASA CLASS III 05/07/2005 07/12/2021 Other ventral hernia without mention of obstruction or gangrene 03/26/2004 07/01/2007 THROMBOPHLEBITIS NOS(aka DVT) 07/21/2003 PULMON EMBOLISM/INFARCT(aka EMBOLISM) 07/21/2003 08/21/2009 documented as of this encounter (statuses as of 12/03/2021) [facility]ative* Problem Noted Date Resolved Date Screening for colon cancer 11/24/201607/12 Overview: Added automatically from request for surgery [id number] Pain in joint, lower leg 11/14/2008 010 MASS IN SUBCUTANEOUS TISSUE 07/21/200808/04 Non-healing surgical wound 03/16/200705/18 Other injury of other sites of trunk 01/16/2006 07/01/2007 ASA CLASS III 05/07/2005 07/12/2021 Other ventral hernia without mention of obstruction or gangrene 03/26/2004 07/01/2007 THROMBOPHLEBITIS NOS(aka DVT) 07/21/2003 PULMON EMBOLISM/INFARCT(aka EMBOLISM) 07/21/2003 08/21/2009 documented as of this encounter (statuses as of 12/11/2021) [facility]* Problem Noted Date Resolved Date Screening for colon cancer 11/24/201607/12 Overview: Added automatically from request for surgery [id number] Pain in joint, lower leg 11/14/2008 05/18/2 010 MASS IN SUBCUTANEOUS TISSUE 07/21/200808/04 Non-healing surgical wound 03/16/200705/18 Other injury of other sites of trunk 01/16/2006 07/01/2007 ASA CLASS III 05/07/2005 07/12/2021 Other ventral hernia without mention of obstruction or gangrene 03/26/2004 07/01/2007 THROMBOPHLEBITIS NOS(aka DVT) 07/21/2003 PULMON EMBOLISM/INFARCT(aka EMBOLISM) 07/21/2003 08/21/2009 documented as of this encounter (statuses as of 12/16/2021) [facility]* Problem Noted Date Resolved Date Screening for colon cancer 11/24/201607/12 Overview: Added automatically from request for surgery [id number] Pain in joint, lower leg 11/14/2008 010 MASS IN SUBCUTANEOUS TISSUE 07/21/200808/04 Non-healing surgical wound 03/16/200705/18 Other injury of other sites of trunk 01/16/2006 07/01/2007 ASA CLASS III 05/07/2005 07/12/2021 Other ventral hernia without mention of obstruction or gangrene 03/26/2004 07/01/2007 THROMBOPHLEBITIS NOS(aka DVT) 07/21/2003 PULMON EMBOLISM/INFARCT(aka EMBOLISM) 07/21/2003 08/21/2009 documented as of this encounter (statuses as of 12/23/2021) [facility]ative* Problem Noted Date Resolved Date Screening for colon cancer 11/24/201607/12 Overview: Added automatically from request for surgery [id number] Pain in joint, lower leg 11/14/2008 010 MASS IN SUBCUTANEOUS TISSUE 07/21/200808/04 Non-healing surgical wound 03/16/200705/18 Other injury of other sites of trunk 01/16/2006 07/01/2007 ASA CLASS III 05/07/2005 07/12/2021 Other ventral hernia without mention of obstruction or gangrene 03/26/2004 07/01/2007 THROMBOPHLEBITIS NOS(aka DVT) 07/21/2003 PULMON EMBOLISM/INFARCT(aka EMBOLISM) 07/21/2003 08/21/2009 documented as of this encounter (statuses as of 12/26/2021) [facility]* Problem Noted Date Resolved Date Screening for colon cancer 11/24/201607/12 Overview: Added automatically from request for surgery [id number] Pain in joint, lower leg 11/14/2008 010 MASS IN SUBCUTANEOUS TISSUE 07/21/200808/04 Non-healing surgical wound 03/16/200705/18 Other injury of other sites of trunk 01/16/2006 07/01/2007 ASA CLASS III 05/07/2005 07/12/2021 Other ventral hernia without mention of obstruction or gangrene 03/26/2004 07/01/2007 THROMBOPHLEBITIS NOS(aka DVT) 07/21/2003 PULMON EMBOLISM/INFARCT(aka EMBOLISM) 07/21/2003 08/21/2009 documented as of this encounter (statuses as of 12/26/2021) [facility]ative* Problem Noted Date Resolved Date Screening for colon cancer 11/24/201607/12 Overview: Added automatically from request for surgery [id number] Pain in joint, lower leg 11/14/2008 010 MASS IN SUBCUTANEOUS TISSUE 07/21/200808/04 Non-healing surgical wound 03/16/200705/18 Other injury of other sites of trunk 01/16/2006 07/01/2007 ASA CLASS III 05/07/2005 07/12/2021 Other ventral hernia without mention of obstruction or gangrene 03/26/2004 07/01/2007 THROMBOPHLEBITIS NOS(aka DVT) 07/21/2003 PULMON EMBOLISM/INFARCT(aka EMBOLISM) 07/21/2003 08/21/2009 documented as of this encounter (statuses as of 01/01/2022) [facility]arrative* Problem Noted Date Resolved Date Screening for colon cancer 11/24/201607/12 Overview: Added automatically from request for surgery [id number] Pain in joint, lower leg 11/14/2008 010 MASS IN SUBCUTANEOUS TISSUE 07/21/200808/04 Non-healing surgical wound 03/16/200705/18 Other injury of other sites of trunk 01/16/2006 07/01/2007 ASA CLASS III 05/07/2005 07/12/2021 Other ventral hernia without mention of obstruction or gangrene 03/26/2004 07/01/2007 THROMBOPHLEBITIS NOS(aka DVT) 07/21/2003 PULMON EMBOLISM/INFARCT(aka EMBOLISM) 07/21/2003 08/21/2009 documented as of this encounter (statuses as of 01/02/2022) [facility]arrative* Problem Noted Date Resolved Date Screening for colon cancer 11/24/201607/12 Overview: Added automatically from request for surgery [id number] Pain in joint, lower leg 11/14/2008 010 MASS IN SUBCUTANEOUS TISSUE 07/21/200808/04 Non-healing surgical wound 03/16/200705/18 Other injury of other sites of trunk 01/16/2006 07/01/2007 ASA CLASS III 05/07/2005 07/12/2021 Other ventral hernia without mention of obstruction or gangrene 03/26/2004 07/01/2007 THROMBOPHLEBITIS NOS(aka DVT) 07/21/2003 PULMON EMBOLISM/INFARCT(aka EMBOLISM) 07/21/2003 08/21/2009 documented as of this encounter (statuses as of 01/04/2022) [facility] Narrative* Problem Noted Date Resolved Date Screening for colon cancer 11/24/201607/12 Overview: Added automatically from request for surgery [id number] Pain in joint, lower leg 11/14/2008 010 MASS IN SUBCUTANEOUS TISSUE 07/21/200808/04 Non-healing surgical wound 03/16/200705/18 Other injury of other sites of trunk 01/16/2006 07/01/2007 ASA CLASS III 05/07/2005 07/12/2021 Other ventral hernia without mention of obstruction or gangrene 03/26/2004 07/01/2007 THROMBOPHLEBITIS NOS(aka DVT) 07/21/2003 PULMON EMBOLISM/INFARCT(aka EMBOLISM) 07/21/2003 08/21/2009 documented as of this encounter (statuses as of 01/07/2022) [facility]arrative* Problem Noted Date Resolved Date Screening for colon cancer 11/24/201607/12 Overview: Added automatically from request for surgery [id number] Pain in joint, lower leg 11/14/2008 010 MASS IN SUBCUTANEOUS TISSUE 07/21/200808/04 Non-healing surgical wound 03/16/200705/18 Other injury of other sites of trunk 01/16/2006 07/01/2007 ASA CLASS III 05/07/2005 07/12/2021 Other ventral hernia without mention of obstruction or gangrene 03/26/2004 07/01/2007 THROMBOPHLEBITIS NOS(aka DVT) 07/21/2003 PULMON EMBOLISM/INFARCT(aka EMBOLISM) 07/21/2003 08/21/2009 documented as of this encounter (statuses as of 01/07/2022) [facility]08-[facility]-2017 History of Past illness Narrative* Problem Noted Date Resolved Date Screening for colon cancer 11/24/201607/12 Overview: Added automatically from request for surgery [id number] Pain in joint, lower leg 11/14/2008 010 MASS IN SUBCUTANEOUS TISSUE 07/21/200808/04 Non-healing surgical wound 03/16/200705/18 Other injury of other sites of trunk 01/16/2006 07/01/2007 ASA CLASS III 05/07/2005 07/12/2021 Other ventral hernia without mention of obstruction or gangrene 03/26/2004 07/01/2007 THROMBOPHLEBITIS NOS(aka DVT) 07/21/2003 PULMON EMBOLISM/INFARCT(aka EMBOLISM) 07/21/2003 08/21/2009 documented as of this encounter (statuses as of 01/09/2022) [facility]2017 History of Past illness Narrative* Problem Noted Date Resolved Date Screening for colon cancer 11/24/201607/12 Overview: Added automatically from request for surgery [id number] Pain in joint, lower leg 11/14/2008 010 MASS IN SUBCUTANEOUS TISSUE 07/21/200808/04 Non-healing surgical wound 03/16/200705/18 Other injury of other sites of trunk 01/16/2006 07/01/2007 ASA CLASS III 05/07/2005 07/12/2021 Other ventral hernia without mention of obstruction or gangrene 03/26/2004 07/01/2007 THROMBOPHLEBITIS NOS(aka DVT) 07/21/2003 PULMON EMBOLISM/INFARCT(aka EMBOLISM) 07/21/2003 08/21/2009 documented as of this encounter (statuses as of 01/09/2022) [facility]2017 History of Past illness Narrative* Problem Noted Date Resolved Date Screening for colon cancer 11/24/201607/12 Overview: Added automatically from request for surgery [id number] Pain in joint, lower leg 11/14/2008 010 MASS IN SUBCUTANEOUS TISSUE 07/21/200808/04 Non-healing surgical wound 03/16/200705/18 Other injury of other sites of trunk 01/16/2006 07/01/2007 ASA CLASS III 05/07/2005 07/12/2021 Other ventral hernia without mention of obstruction or gangrene 03/26/2004 07/01/2007 THROMBOPHLEBITIS NOS(aka DVT) 07/21/2003 PULMON EMBOLISM/INFARCT(aka EMBOLISM) 07/21/2003 08/21/2009 documented as of this encounter (statuses as of 01/14/2022) [facility]2017 History of Past illness Narrative* Problem Noted Date Resolved Date Screening for colon cancer 11/24/201607/12 Overview: Added automatically from request for surgery [id number] Pain in joint, lower leg 11/14/2008 010 MASS IN SUBCUTANEOUS TISSUE 07/21/200808/04 Non-healing surgical wound 03/16/200705/18 Other injury of other sites of trunk 01/16/2006 07/01/2007 ASA CLASS III 05/07/2005 07/12/2021 Other ventral hernia without mention of obstruction or gangrene 03/26/2004 07/01/2007 THROMBOPHLEBITIS NOS(aka DVT) 07/21/2003 PULMON EMBOLISM/INFARCT(aka EMBOLISM) 07/21/2003 08/21/2009 documented as of this encounter (statuses as of 01/20/2022) [facility]2017 History of Past illness Narrative* Problem Noted Date Resolved Date Screening for colon cancer 11/24/201607/12 Overview: Added automatically from request for surgery [id number] Pain in joint, lower leg 11/14/2008 010 MASS IN SUBCUTANEOUS TISSUE 07/21/200808/04 Non-healing surgical wound 03/16/200705/18 Other injury of other sites of trunk 01/16/2006 07/01/2007 ASA CLASS III 05/07/2005 07/12/2021 Other ventral hernia without mention of obstruction or gangrene 03/26/2004 07/01/2007 THROMBOPHLEBITIS NOS(aka DVT) 07/21/2003 PULMON EMBOLISM/INFARCT(aka EMBOLISM) 07/21/2003 08/21/2009 documented as of this encounter (statuses as of 01/30/2022) [facility]2017 History of Past illness Narrative* Problem Noted Date Resolved Date Screening for colon cancer 11/24/201607/12 Overview: Added automatically from request for surgery [id number] Pain in joint, lower leg 11/14/2008 010 MASS IN SUBCUTANEOUS TISSUE 07/21/200808/04 Non-healing surgical wound 03/16/200705/18 Other injury of other sites of trunk 01/16/2006 07/01/2007 ASA CLASS III 05/07/2005 07/12/2021 Other ventral hernia without mention of obstruction or gangrene 03/26/2004 07/01/2007 THROMBOPHLEBITIS NOS(aka DVT) 07/21/2003 PULMON EMBOLISM/INFARCT(aka EMBOLISM) 07/21/2003 08/21/2009 documented as of this encounter (statuses as of 01/30/2022) [facility]2017 History of Past illness Narrative* Problem Noted Date Resolved Date Screening for colon cancer 11/24/201607/12 Overview: Added automatically from request for surgery [id number] Pain in joint, lower leg 11/14/2008 010 MASS IN SUBCUTANEOUS TISSUE 07/21/200808/04 Non-healing surgical wound 03/16/200705/18 Other injury of other sites of trunk 01/16/2006 07/01/2007 ASA CLASS III 05/07/2005 07/12/2021 Other ventral hernia without mention of obstruction or gangrene 03/26/2004 07/01/2007 THROMBOPHLEBITIS NOS(aka DVT) 07/21/2003 PULMON EMBOLISM/INFARCT(aka EMBOLISM) 07/21/2003 08/21/2009 documented as of this encounter (statuses as of 02/14/2022) [facility]2017 History of Past illness Narrative* Problem Noted Date Resolved Date Screening for colon cancer 11/24/201607/12 Overview: Added automatically from request for surgery [id number] Pain in joint, lower leg 11/14/2008 010 MASS IN SUBCUTANEOUS TISSUE 07/21/200808/04 Non-healing surgical wound 03/16/200705/18 Other injury of other sites of trunk 01/16/2006 07/01/2007 ASA CLASS III 05/07/2005 07/12/2021 Other ventral hernia without mention of obstruction or gangrene 03/26/2004 07/01/2007 THROMBOPHLEBITIS NOS(aka DVT) 07/21/2003 PULMON EMBOLISM/INFARCT(aka EMBOLISM) 07/21/2003 08/21/2009 documented as of this encounter (statuses as of 02/18/2022) [facility]2017 History of Past illness Narrative* Problem Noted Date Resolved Date Screening for colon cancer 11/24/201607/12 Overview: Added automatically from request for surgery [id number] Pain in joint, lower leg 11/14/2008 010 MASS IN SUBCUTANEOUS TISSUE 07/21/200808/04 Non-healing surgical wound 03/16/200705/18 Other injury of other sites of trunk 01/16/2006 07/01/2007 ASA CLASS III 05/07/2005 07/12/2021 Other ventral hernia without mention of obstruction or gangrene 03/26/2004 07/01/2007 THROMBOPHLEBITIS NOS(aka DVT) 07/21/2003 PULMON EMBOLISM/INFARCT(aka EMBOLISM) 07/21/2003 08/21/2009 documented as of this encounter (statuses as of 03/04/2022) [facility]2017 History of Past illness Narrative* Problem Noted Date Resolved Date Screening for colon cancer 11/24/201607/12 Overview: Added automatically from request for surgery [id number] Pain in joint, lower leg 11/14/2008 010 MASS IN SUBCUTANEOUS TISSUE 07/21/200808/04 Non-healing surgical wound 03/16/200705/18 Other injury of other sites of trunk 01/16/2006 07/01/2007 ASA CLASS III 05/07/2005 07/12/2021 Other ventral hernia without mention of obstruction or gangrene 03/26/2004 07/01/2007 THROMBOPHLEBITIS NOS(aka DVT) 07/21/2003 PULMON EMBOLISM/INFARCT(aka EMBOLISM) 07/21/2003 08/21/2009 documented as of this encounter (statuses as of 04/16/2022) [facility]2017 History of Past illness Narrative* Problem Noted Date Resolved Date Screening for colon cancer 11/24/201607/12 Overview: Added automatically from request for surgery [id number] Pain in joint, lower leg 11/14/2008 010 MASS IN SUBCUTANEOUS TISSUE 07/21/200808/04 Non-healing surgical wound 03/16/200705/18 Other injury of other sites of trunk 01/16/2006 07/01/2007 ASA CLASS III 05/07/2005 07/12/2021 Other ventral hernia without mention of obstruction or gangrene 03/26/2004 07/01/2007 THROMBOPHLEBITIS NOS(aka DVT) 07/21/2003 PULMON EMBOLISM/INFARCT(aka EMBOLISM) 07/21/2003 08/21/2009 documented as of this encounter (statuses as of 04/17/2022) [facility]2017 History of Past illness Narrative* Problem Noted Date Resolved Date Screening for colon cancer 11/24/201607/12 Overview: Added automatically from request for surgery [id number] Pain in joint, lower leg 11/14/2008 010 MASS IN SUBCUTANEOUS TISSUE 07/21/200808/04 Non-healing surgical wound 03/16/200705/18 Other injury of other sites of trunk 01/16/2006 07/01/2007 ASA CLASS III 05/07/2005 07/12/2021 Other ventral hernia without mention of obstruction or gangrene 03/26/2004 07/01/2007 THROMBOPHLEBITIS NOS(aka DVT) 07/21/2003 PULMON EMBOLISM/INFARCT(aka EMBOLISM) 07/21/2003 08/21/2009 documented as of this encounter (statuses as of 04/29/2022) [facility]2017 History of Past illness Narrative* Problem Noted Date Resolved Date Screening for colon cancer 11/24/201607/12 Overview: Added automatically from request for surgery [id number] Pain in joint, lower leg 11/14/2008 010 MASS IN SUBCUTANEOUS TISSUE 07/21/200808/04 Non-healing surgical wound 03/16/200705/18 Other injury of other sites of trunk 01/16/2006 07/01/2007 ASA CLASS III 05/07/2005 07/12/2021 Other ventral hernia without mention of obstruction or gangrene 03/26/2004 07/01/2007 THROMBOPHLEBITIS NOS(aka DVT) 07/21/2003 PULMON EMBOLISM/INFARCT(aka EMBOLISM) 07/21/2003 08/21/2009 documented as of this encounter (statuses as of 04/30/2022) [facility]2017 History of Past illness Narrative* Problem Noted Date Resolved Date Screening for colon cancer 11/24/201607/12 Overview: Added automatically from request for surgery [id number] Pain in joint, lower leg 11/14/2008 010 MASS IN SUBCUTANEOUS TISSUE 07/21/200808/04 Non-healing surgical wound 03/16/200705/18 Other injury of other sites of trunk 01/16/2006 07/01/2007 ASA CLASS III 05/07/2005 07/12/2021 Other ventral hernia without mention of obstruction or gangrene 03/26/2004 07/01/2007 THROMBOPHLEBITIS NOS(aka DVT) 07/21/2003 PULMON EMBOLISM/INFARCT(aka EMBOLISM) 07/21/2003 08/21/2009 documented as of this encounter (statuses as of 05/06/2022) [facility]2017 History of Past illness Narrative* Problem Noted Date Resolved Date Screening for colon cancer 11/24/201607/12 Overview: Added automatically from request for surgery [id number] Pain in joint, lower leg 11/14/2008 010 MASS IN SUBCUTANEOUS TISSUE 07/21/200808/04 Non-healing surgical wound 03/16/200705/18 Other injury of other sites of trunk 01/16/2006 07/01/2007 ASA CLASS III 05/07/2005 07/12/2021 Other ventral hernia without mention of obstruction or gangrene 03/26/2004 07/01/2007 THROMBOPHLEBITIS NOS(aka DVT) 07/21/2003 PULMON EMBOLISM/INFARCT(aka EMBOLISM) 07/21/2003 08/21/2009 documented as of this encounter (statuses as of 05/15/2022) [facility]2017 History of Past illness Narrative* Problem Noted Date Resolved Date Screening for colon cancer 11/24/201607/12 Overview: Added automatically from request for surgery [id number] Pain in joint, lower leg 11/14/2008 010 MASS IN SUBCUTANEOUS TISSUE 07/21/200808/04 Non-healing surgical wound 03/16/200705/18 Other injury of other sites of trunk 01/16/2006 07/01/2007 ASA CLASS III 05/07/2005 07/12/2021 Other ventral hernia without mention of obstruction or gangrene 03/26/2004 07/01/2007 THROMBOPHLEBITIS NOS(aka DVT) 07/21/2003 PULMON EMBOLISM/INFARCT(aka EMBOLISM) 07/21/2003 08/21/2009 documented as of this encounter (statuses as of 05/16/2022) [facility]2017 History of Past illness Narrative* Problem Noted Date Resolved Date Screening for colon cancer 11/24/201607/12 Overview: Added automatically from request for surgery [id number] Pain in joint, lower leg 11/14/2008 010 MASS IN SUBCUTANEOUS TISSUE 07/21/200808/04 Non-healing surgical wound 03/16/200705/18 Other injury of other sites of trunk 01/16/2006 07/01/2007 ASA CLASS III 05/07/2005 07/12/2021 Other ventral hernia without mention of obstruction or gangrene 03/26/2004 07/01/2007 THROMBOPHLEBITIS NOS(aka DVT) 07/21/2003 PULMON EMBOLISM/INFARCT(aka EMBOLISM) 07/21/2003 08/21/2009 documented as of this encounter (statuses as of 05/19/2022) [facility]2017 History of Past illness Narrative* Problem Noted Date Resolved Date Screening for colon cancer 11/24/201607/12 Overview: Added automatically from request for surgery [id number] Pain in joint, lower leg 11/14/2008 010 MASS IN SUBCUTANEOUS TISSUE 07/21/200808/04 Non-healing surgical wound 03/16/200705/18 Other injury of other sites of trunk 01/16/2006 07/01/2007 ASA CLASS III 05/07/2005 07/12/2021 Other ventral hernia without mention of obstruction or gangrene 03/26/2004 07/01/2007 THROMBOPHLEBITIS NOS(aka DVT) 07/21/2003 PULMON EMBOLISM/INFARCT(aka EMBOLISM) 07/21/2003 08/21/2009 documented as of this encounter (statuses as of 05/30/2022) [facility]2017 History of Past illness Narrative* Problem Noted Date Resolved Date Screening for colon cancer 11/24/201607/12 Overview: Added automatically from request for surgery [id number] Pain in joint, lower leg 11/14/2008 010 MASS IN SUBCUTANEOUS TISSUE 07/21/200808/04 Non-healing surgical wound 03/16/200705/18 Other injury of other sites of trunk 01/16/2006 07/01/2007 ASA CLASS III 05/07/2005 07/12/2021 Other ventral hernia without mention of obstruction or gangrene 03/26/2004 07/01/2007 THROMBOPHLEBITIS NOS(aka DVT) 07/21/2003 PULMON EMBOLISM/INFARCT(aka EMBOLISM) 07/21/2003 08/21/2009 documented as of this encounter (statuses as of 06/04/2022) [facility] History of Past illness Narrative* Problem Noted Date Resolved Date Screening for colon cancer 11/24/201607/12 Overview: Added automatically from request for surgery [id number] Pain in joint, lower leg 11/14/2008 010 MASS IN SUBCUTANEOUS TISSUE 07/21/200808/04 Non-healing surgical wound 03/16/200705/18 Other injury of other sites of trunk 01/16/2006 07/01/2007 ASA CLASS III 05/07/2005 07/12/2021 Other ventral hernia without mention of obstruction or gangrene 03/26/2004 07/01/2007 THROMBOPHLEBITIS NOS(aka DVT) 07/21/2003 PULMON EMBOLISM/INFARCT(aka EMBOLISM) 07/21/2003 08/21/2009 documented as of this encounter (statuses as of 06/26/2022) [facility]2017 History of Past illness Narrative* Problem Noted Date Resolved Date Screening for colon cancer 11/24/201607/12 Overview: Added automatically from request for surgery [id number] Pain in joint, lower leg 11/14/2008 010 MASS IN SUBCUTANEOUS TISSUE 07/21/200808/04 Non-healing surgical wound 03/16/200705/18 Other injury of other sites of trunk 01/16/2006 07/01/2007 ASA CLASS III 05/07/2005 07/12/2021 Other ventral hernia without mention of obstruction or gangrene 03/26/2004 07/01/2007 THROMBOPHLEBITIS NOS(aka DVT) 07/21/2003 PULMON EMBOLISM/INFARCT(aka EMBOLISM) 07/21/2003 08/21/2009 documented as of this encounter (statuses as of 06/27/2022) [facility] History of Past illness Narrative* Problem Noted Date Resolved Date Screening for colon cancer 11/24/201607/12 Overview: Added automatically from request for surgery [id number] Pain in joint, lower leg 11/14/2008 010 MASS IN SUBCUTANEOUS TISSUE 07/21/200808/04 Non-healing surgical wound 03/16/200705/18 Other injury of other sites of trunk 01/16/2006 07/01/2007 ASA CLASS III 05/07/2005 07/12/2021 Other ventral hernia without mention of obstruction or gangrene 03/26/2004 07/01/2007 THROMBOPHLEBITIS NOS(aka DVT) 07/21/2003 PULMON EMBOLISM/INFARCT(aka EMBOLISM) 07/21/2003 08/21/2009 documented as of this encounter (statuses as of 06/30/2022) [facility] History of Past illness Narrative* Problem Noted Date Resolved Date Screening for colon cancer 11/24/201607/12 Overview: Added automatically from request for surgery [id number] Pain in joint, lower leg 11/14/2008 010 MASS IN SUBCUTANEOUS TISSUE 07/21/200808/04 Non-healing surgical wound 03/16/200705/18 Other injury of other sites of trunk 01/16/2006 07/01/2007 ASA CLASS III 05/07/2005 07/12/2021 Other ventral hernia without mention of obstruction or gangrene 03/26/2004 07/01/2007 THROMBOPHLEBITIS NOS(aka DVT) 07/21/2003 PULMON EMBOLISM/INFARCT(aka EMBOLISM) 07/21/2003 08/21/2009 documented as of this encounter (statuses as of 07/01/2022) [facility] History of Past illness Narrative* Problem Noted Date Resolved Date Screening for colon cancer 11/24/201607/12 Overview: Added automatically from request for surgery [id number] Pain in joint, lower leg 11/14/2008 010 MASS IN SUBCUTANEOUS TISSUE 07/21/200808/04 Non-healing surgical wound 03/16/200705/18 Other injury of other sites of trunk 01/16/2006 07/01/2007 ASA CLASS III 05/07/2005 07/12/2021 Other ventral hernia without mention of obstruction or gangrene 03/26/2004 07/01/2007 THROMBOPHLEBITIS NOS(aka DVT) 07/21/2003 PULMON EMBOLISM/INFARCT(aka EMBOLISM) 07/21/2003 08/21/2009 documented as of this encounter (statuses as of 07/03/2022) [facility] History of Past illness Narrative* Problem Noted Date Resolved Date Screening for colon cancer 11/24/201607/12 Overview: Added automatically from request for surgery [id number] Pain in joint, lower leg 11/14/2008 010 MASS IN SUBCUTANEOUS TISSUE 07/21/200808/04 Non-healing surgical wound 03/16/200705/18 Other injury of other sites of trunk 01/16/2006 07/01/2007 ASA CLASS III 05/07/2005 07/12/2021 Other ventral hernia without mention of obstruction or gangrene 03/26/2004 07/01/2007 THROMBOPHLEBITIS NOS(aka DVT) 07/21/2003 PULMON EMBOLISM/INFARCT(aka EMBOLISM) 07/21/2003 08/21/2009 documented as of this encounter (statuses as of 07/14/2022) [facility] History of Past illness Narrative* Problem Noted Date Resolved Date Screening for colon cancer 11/24/201607/12 Overview: Added automatically from request for surgery [id number] Pain in joint, lower leg 11/14/2008 010 MASS IN SUBCUTANEOUS TISSUE 07/21/200808/04 Non-healing surgical wound 03/16/200705/18 Other injury of other sites of trunk 01/16/2006 07/01/2007 ASA CLASS III 05/07/2005 07/12/2021 Other ventral hernia without mention of obstruction or gangrene 03/26/2004 07/01/2007 THROMBOPHLEBITIS NOS(aka DVT) 07/21/2003 PULMON EMBOLISM/INFARCT(aka EMBOLISM) 07/21/2003 08/21/2009 documented as of this encounter (statuses as of 07/31/2022) [facility] History of Past illness Narrative* Problem Noted Date Resolved Date Screening for colon cancer 11/24/201607/12 Overview: Added automatically from request for surgery [id number] Pain in joint, lower leg 11/14/2008 010 MASS IN SUBCUTANEOUS TISSUE 07/21/200808/04 Non-healing surgical wound 03/16/200705/18 Other injury of other sites of trunk 01/16/2006 07/01/2007 ASA CLASS III 05/07/2005 07/12/2021 Other ventral hernia without mention of obstruction or gangrene 03/26/2004 07/01/2007 THROMBOPHLEBITIS NOS(aka DVT) 07/21/2003 PULMON EMBOLISM/INFARCT(aka EMBOLISM) 07/21/2003 08/21/2009 documented as of this encounter (statuses as of 08/05/2022) [facility] History of Past illness Narrative* Problem Noted Date Resolved Date Screening for colon cancer 11/24/201607/12 Overview: Added automatically from request for surgery [id number] Pain in joint, lower leg 11/14/2008 010 MASS IN SUBCUTANEOUS TISSUE 07/21/200808/04 Non-healing surgical wound 03/16/200705/18 Other injury of other sites of trunk 01/16/2006 07/01/2007 ASA CLASS III 05/07/2005 07/12/2021 Other ventral hernia without mention of obstruction or gangrene 03/26/2004 07/01/2007 THROMBOPHLEBITIS NOS(aka DVT) 07/21/2003 PULMON EMBOLISM/INFARCT(aka EMBOLISM) 07/21/2003 08/21/2009 documented as of this encounter (statuses as of 08/14/2022) [facility] History of Past illness Narrative* Problem Noted Date Resolved Date Screening for colon cancer 11/24/201607/12 Overview: Added automatically from request for surgery [id number] Pain in joint, lower leg 11/14/2008 010 MASS IN SUBCUTANEOUS TISSUE 07/21/200808/04 Non-healing surgical wound 03/16/200705/18 Other injury of other sites of trunk 01/16/2006 07/01/2007 ASA CLASS III 05/07/2005 07/12/2021 Other ventral hernia without mention of obstruction or gangrene 03/26/2004 07/01/2007 THROMBOPHLEBITIS NOS(aka DVT) 07/21/2003 PULMON EMBOLISM/INFARCT(aka EMBOLISM) 07/21/2003 08/21/2009 documented as of this encounter (statuses as of 10/02/2022) [facility] History of Past illness Narrative* Problem Noted Date Resolved Date Screening for colon cancer 11/24/201607/12 Overview: Added automatically from request for surgery [id number] Pain in joint, lower leg 11/14/2008 010 MASS IN SUBCUTANEOUS TISSUE 07/21/200808/04 Non-healing surgical wound 03/16/200705/18 Other injury of other sites of trunk 01/16/2006 07/01/2007 ASA CLASS III 05/07/2005 07/12/2021 Other ventral hernia without mention of obstruction or gangrene 03/26/2004 07/01/2007 THROMBOPHLEBITIS NOS(aka DVT) 07/21/2003 PULMON EMBOLISM/INFARCT(aka EMBOLISM) 07/21/2003 08/21/2009 documented as of this encounter (statuses as of 10/09/2022) [facility] History of Past illness Narrative* Problem Noted Date Diagnosed Date Resolved Date Screening for colon cancer 11/24/2016 0 07/12/2021 Overview: Added automatically from request for surgery [id number] Pain in joint, lower leg 11/14/2008 MASS IN SUBCUTANEOUS TISSUE 07/21/2008 08/18/2018 Non-healing surgical wound 03/16/2007 0 05/18/2009 Other injury of other sites of trunk 01/16/2006 07/01/2007 ASA CLASS III 05/07/2005 07/12/2021 Other ventral hernia without mention of obstruction or gangrene 03/26/2004 07/01/2007 THROMBOPHLEBITIS NOS(aka DVT) 07/21/2003 08/21/2009 PULMON EMBOLISM/INFARCT(aka EMBOLISM) 07/21/2003 08/21/2009 documented as of this encounter (statuses as of 10/16/2022) [facility] History of Past illness Narrative* Problem Noted Date Diagnosed Date Resolved Date Screening for colon cancer 11/24/2016 0 07/12/2021 Overview: Added automatically from request for surgery [id number] Pain in joint, lower leg 11/14/2008 MASS IN SUBCUTANEOUS TISSUE 07/21/2008 08/18/2018 Non-healing surgical wound 03/16/2007 0 05/18/2009 Other injury of other sites of trunk 01/16/2006 07/01/2007 ASA CLASS III 05/07/2005 07/12/2021 Other ventral hernia without mention of obstruction or gangrene 03/26/2004 07/01/2007 THROMBOPHLEBITIS NOS(aka DVT) 07/21/2003 08/21/2009 PULMON EMBOLISM/INFARCT(aka EMBOLISM) 07/21/2003 08/21/2009 documented as of this encounter (statuses as of 12/05/2022) [facility] History of Past illness Narrative* Problem Noted Date Diagnosed Date Resolved Date Screening for colon cancer 11/24/2016 0 07/12/2021 Overview: Added automatically from request for surgery [id number] Pain in joint, lower leg 11/14/2008 MASS IN SUBCUTANEOUS TISSUE 07/21/2008 08/18/2018 Non-healing surgical wound 03/16/2007 0 05/18/2009 Other injury of other sites of trunk 01/16/2006 07/01/2007 ASA CLASS III 05/07/2005 07/12/2021 Other ventral hernia without mention of obstruction or gangrene 03/26/2004 07/01/2007 THROMBOPHLEBITIS NOS(aka DVT) 07/21/2003 08/21/2009 PULMON EMBOLISM/INFARCT(aka EMBOLISM) 07/21/2003 08/21/2009 documented as of this encounter (statuses as of 12/22/2022) [facility] History of Past illness Narrative* Problem Noted Date Diagnosed Date Resolved Date Screening for colon cancer 11/24/2016 0 07/12/2021 Overview: Added automatically from request for surgery [id number] Pain in joint, lower leg 11/14/2008 MASS IN SUBCUTANEOUS TISSUE 07/21/2008 08/18/2018 Non-healing surgical wound 03/16/2007 0 05/18/2009 Other injury of other sites of trunk 01/16/2006 07/01/2007 ASA CLASS III 05/07/2005 07/12/2021 Other ventral hernia without mention of obstruction or gangrene 03/26/2004 07/01/2007 THROMBOPHLEBITIS NOS(aka DVT) 07/21/2003 08/21/2009 PULMON EMBOLISM/INFARCT(aka EMBOLISM) 07/21/2003 08/21/2009 documented as of this encounter (statuses as of 12/24/2022) [facility] History of Past illness Narrative* Problem Noted Date Diagnosed Date Resolved Date Screening for colon cancer 11/24/2016 0 07/12/2021 Overview: Added automatically from request for surgery [id number] Pain in joint, lower leg 11/14/2008 MASS IN SUBCUTANEOUS TISSUE 07/21/2008 08/18/2018 Non-healing surgical wound 03/16/2007 0 05/18/2009 Other injury of other sites of trunk 01/16/2006 07/01/2007 ASA CLASS III 05/07/2005 07/12/2021 Other ventral hernia without mention of obstruction or gangrene 03/26/2004 07/01/2007 THROMBOPHLEBITIS NOS(aka DVT) 07/21/2003 08/21/2009 PULMON EMBOLISM/INFARCT(aka EMBOLISM) 07/21/2003 08/21/2009 documented as of this encounter (statuses as of 01/15/2023) [facility]2017 History of Past illness Narrative* Problem Noted Date Diagnosed Date Resolved Date Screening for colon cancer 11/24/2016 0 07/12/2021 Overview: Added automatically from request for surgery [id number] Pain in joint, lower leg 11/14/2008 MASS IN SUBCUTANEOUS TISSUE 07/21/2008 08/18/2018 Non-healing surgical wound 03/16/2007 0 05/18/2009 Other injury of other sites of trunk 01/16/2006 07/01/2007 ASA CLASS III 05/07/2005 07/12/2021 Other ventral hernia without mention of obstruction or gangrene 03/26/2004 07/01/2007 THROMBOPHLEBITIS NOS(aka DVT) 07/21/2003 08/21/2009 PULMON EMBOLISM/INFARCT(aka EMBOLISM) 07/21/2003 08/21/2009 documented as of this encounter (statuses as of 01/15/2023) [facility] History of Past illness Narrative* Problem Noted Date Diagnosed Date Resolved Date Screening for colon cancer 11/24/2016 0 07/12/2021 Overview: Added automatically from request for surgery [id number] Pain in joint, lower leg 11/14/2008 MASS IN SUBCUTANEOUS TISSUE 07/21/2008 08/18/2018 Non-healing surgical wound 03/16/2007 0 05/18/2009 Other injury of other sites of trunk 01/16/2006 07/01/2007 ASA CLASS III 05/07/2005 07/12/2021 Other ventral hernia without mention of obstruction or gangrene 03/26/2004 07/01/2007 THROMBOPHLEBITIS NOS(aka DVT) 07/21/2003 08/21/2009 PULMON EMBOLISM/INFARCT(aka EMBOLISM) 07/21/2003 08/21/2009 documented as of this encounter (statuses as of 02/08/2023) [facility] History of Past illness Narrative* Problem Noted Date Diagnosed Date Resolved Date Screening for colon cancer 11/24/2016 0 07/12/2021 Overview: Added automatically from request for surgery [id number] Pain in joint, lower leg 11/14/2008 MASS IN SUBCUTANEOUS TISSUE 07/21/2008 08/18/2018 Non-healing surgical wound 03/16/2007 0 05/18/2009 Other injury of other sites of trunk 01/16/2006 07/01/2007 ASA CLASS III 05/07/2005 07/12/2021 Other ventral hernia without mention of obstruction or gangrene 03/26/2004 07/01/2007 THROMBOPHLEBITIS NOS(aka DVT) 07/21/2003 08/21/2009 PULMON EMBOLISM/INFARCT(aka EMBOLISM) 07/21/2003 08/21/2009 documented as of this encounter (statuses as of 02/08/2023) [facility] History of Past illness Narrative* Problem Noted Date Diagnosed Date Resolved Date Screening for colon cancer 11/24/2016 0 07/12/2021 Overview: Added automatically from request for surgery [id number] Pain in joint, lower leg 11/14/2008 MASS IN SUBCUTANEOUS TISSUE 07/21/2008 08/18/2018 Non-healing surgical wound 03/16/2007 0 05/18/2009 Other injury of other sites of trunk 01/16/2006 07/01/2007 ASA CLASS III 05/07/2005 07/12/2021 Other ventral hernia without mention of obstruction or gangrene 03/26/2004 07/01/2007 THROMBOPHLEBITIS NOS(aka DVT) 07/21/2003 08/21/2009 PULMON EMBOLISM/INFARCT(aka EMBOLISM) 07/21/2003 08/21/2009 documented as of this encounter (statuses as of 02/08/2023) [facility] History of Past illness Narrative* Problem Noted Date Diagnosed Date Resolved Date Screening for colon cancer 11/24/2016 0 07/12/2021 Overview: Added automatically from request for surgery [id number] Pain in joint, lower leg 11/14/2008 MASS IN SUBCUTANEOUS TISSUE 07/21/2008 08/18/2018 Non-healing surgical wound 03/16/2007 0 05/18/2009 Other injury of other sites of trunk 01/16/2006 07/01/2007 ASA CLASS III 05/07/2005 07/12/2021 Other ventral hernia without mention of obstruction or gangrene 03/26/2004 07/01/2007 THROMBOPHLEBITIS NOS(aka DVT) 07/21/2003 08/21/2009 PULMON EMBOLISM/INFARCT(aka EMBOLISM) 07/21/2003 08/21/2009 documented as of this encounter (statuses as of 02/08/2023) [facility] History of Past illness Narrative* Problem Noted Date Diagnosed Date Resolved Date Screening for colon cancer 11/24/2016 0 07/12/2021 Overview: Added automatically from request for surgery [id number] Pain in joint, lower leg 11/14/2008 MASS IN SUBCUTANEOUS TISSUE 07/21/2008 08/18/2018 Non-healing surgical wound 03/16/2007 0 05/18/2009 Other injury of other sites of trunk 01/16/2006 07/01/2007 ASA CLASS III 05/07/2005 07/12/2021 Other ventral hernia without mention of obstruction or gangrene 03/26/2004 07/01/2007 THROMBOPHLEBITIS NOS(aka DVT) 07/21/2003 08/21/2009 PULMON EMBOLISM/INFARCT(aka EMBOLISM) 07/21/2003 08/21/2009 documented as of this encounter (statuses as of 02/16/2023) [facility] History of Past illness Narrative* Problem Noted Date Diagnosed Date Resolved Date Screening for colon cancer 11/24/2016 0 07/12/2021 Overview: Added automatically from request for surgery [id number] Pain in joint, lower leg 11/14/2008 MASS IN SUBCUTANEOUS TISSUE 07/21/2008 08/18/2018 Non-healing surgical wound 03/16/2007 0 05/18/2009 Other injury of other sites of trunk 01/16/2006 07/01/2007 ASA CLASS III 05/07/2005 07/12/2021 Other ventral hernia without mention of obstruction or gangrene 03/26/2004 07/01/2007 THROMBOPHLEBITIS NOS(aka DVT) 07/21/2003 08/21/2009 PULMON EMBOLISM/INFARCT(aka EMBOLISM) 07/21/2003 08/21/2009 documented as of this encounter (statuses as of 03/03/2023) [facility] History of Past illness Narrative* Problem Noted Date Diagnosed Date Resolved Date Screening for colon cancer 11/24/2016 0 07/12/2021 Overview: Added automatically from request for surgery [id number] Pain in joint, lower leg 11/14/2008 MASS IN SUBCUTANEOUS TISSUE 07/21/2008 08/18/2018 Non-healing surgical wound 03/16/2007 0 05/18/2009 Other injury of other sites of trunk 01/16/2006 07/01/2007 ASA CLASS III 05/07/2005 07/12/2021 Other ventral hernia without mention of obstruction or gangrene 03/26/2004 07/01/2007 THROMBOPHLEBITIS NOS(aka DVT) 07/21/2003 08/21/2009 PULMON EMBOLISM/INFARCT(aka EMBOLISM) 07/21/2003 08/21/2009 documented as of this encounter (statuses as of 05/18/2023) [facility] History of Past illness Narrative* Problem Noted Date Diagnosed Date Resolved Date Screening for colon cancer 11/24/2016 0 07/12/2021 Overview: Added automatically from request for surgery [id number] Pain in joint, lower leg 11/14/2008 MASS IN SUBCUTANEOUS TISSUE 07/21/2008 08/18/2018 Non-healing surgical wound 03/16/2007 0 05/18/2009 Other injury of other sites of trunk 01/16/2006 07/01/2007 ASA CLASS III 05/07/2005 07/12/2021 Other ventral hernia without mention of obstruction or gangrene 03/26/2004 07/01/2007 THROMBOPHLEBITIS NOS(aka DVT) 07/21/2003 08/21/2009 PULMON EMBOLISM/INFARCT(aka EMBOLISM) 07/21/2003 08/21/2009 documented as of this encounter (statuses as of 05/20/2023) [facility] History of Past illness Narrative* Problem Noted Date Diagnosed Date Resolved Date Screening for colon cancer 11/24/2016 0 07/12/2021 Overview: Added automatically from request for surgery [id number] Pain in joint, lower leg 11/14/2008 MASS IN SUBCUTANEOUS TISSUE 07/21/2008 08/18/2018 Non-healing surgical wound 03/16/2007 0 05/18/2009 Other injury of other sites of trunk 01/16/2006 07/01/2007 ASA CLASS III 05/07/2005 07/12/2021 Other ventral hernia without mention of obstruction or gangrene 03/26/2004 07/01/2007 THROMBOPHLEBITIS NOS(aka DVT) 07/21/2003 08/21/2009 PULMON EMBOLISM/INFARCT(aka EMBOLISM) 07/21/2003 08/21/2009 documented as of this encounter (statuses as of 06/02/2023) [facility] History of Past illness Narrative* Problem Noted Date Diagnosed Date Resolved Date Screening for colon cancer 11/24/2016 0 07/12/2021 Overview: Added automatically from request for surgery [id number] Pain in joint, lower leg 11/14/2008 MASS IN SUBCUTANEOUS TISSUE 07/21/2008 08/18/2018 Non-healing surgical wound 03/16/2007 0 05/18/2009 Other injury of other sites of trunk 01/16/2006 07/01/2007 ASA CLASS III 05/07/2005 07/12/2021 Other ventral hernia without mention of obstruction or gangrene 03/26/2004 07/01/2007 THROMBOPHLEBITIS NOS(aka DVT) 07/21/2003 08/21/2009 PULMON EMBOLISM/INFARCT(aka EMBOLISM) 07/21/2003 08/21/2009 documented as of this encounter (statuses as of 06/04/2023) [facility] History of Past illness Narrative* Problem Noted Date Diagnosed Date Resolved Date Screening for colon cancer 11/24/2016 0 07/12/2021 Overview: Added automatically from request for surgery [id number] Pain in joint, lower leg 11/14/2008 MASS IN SUBCUTANEOUS TISSUE 07/21/2008 08/18/2018 Non-healing surgical wound 03/16/2007 0 05/18/2009 Other injury of other sites of trunk 01/16/2006 07/01/2007 ASA CLASS III 05/07/2005 07/12/2021 Other ventral hernia without mention of obstruction or gangrene 03/26/2004 07/01/2007 THROMBOPHLEBITIS NOS(aka DVT) 07/21/2003 08/21/2009 PULMON EMBOLISM/INFARCT(aka EMBOLISM) 07/21/2003 08/21/2009 documented as of this encounter (statuses as of 06/17/2023) [facility] History of Past illness Narrative* Problem Noted Date Diagnosed Date Resolved Date Screening for colon cancer 11/24/2016 0 07/12/2021 Overview: Added automatically from request for surgery [id number] Pain in joint, lower leg 11/14/2008 MASS IN SUBCUTANEOUS TISSUE 07/21/2008 08/18/2018 Non-healing surgical wound 03/16/2007 0 05/18/2009 Other injury of other sites of trunk 01/16/2006 07/01/2007 ASA CLASS III 05/07/2005 07/12/2021 Other ventral hernia without mention of obstruction or gangrene 03/26/2004 07/01/2007 THROMBOPHLEBITIS NOS(aka DVT) 07/21/2003 08/21/2009 PULMON EMBOLISM/INFARCT(aka EMBOLISM) 07/21/2003 08/21/2009 documented as of this encounter (statuses as of 06/22/2023) [facility] History of Past illness Narrative* Problem Noted Date Diagnosed Date Resolved Date Screening for colon cancer 11/24/2016 0 07/12/2021 Overview: Added automatically from request for surgery [id number] Pain in joint, lower leg 11/14/2008 MASS IN SUBCUTANEOUS TISSUE 07/21/2008 08/18/2018 Non-healing surgical wound 03/16/2007 0 05/18/2009 Other injury of other sites of trunk 01/16/2006 07/01/2007 ASA CLASS III 05/07/2005 07/12/2021 Other ventral hernia without mention of obstruction or gangrene 03/26/2004 07/01/2007 THROMBOPHLEBITIS NOS(aka DVT) 07/21/2003 08/21/2009 PULMON EMBOLISM/INFARCT(aka EMBOLISM) 07/21/2003 08/21/2009 documented as of this encounter (statuses as of 06/29/2023) [facility] History of Past illness Narrative* Problem Noted Date Diagnosed Date Resolved Date Screening for colon cancer 11/24/2016 0 07/12/2021 Overview: Added automatically from request for surgery [id number] Pain in joint, lower leg 11/14/2008 MASS IN SUBCUTANEOUS TISSUE 07/21/2008 08/18/2018 Non-healing surgical wound 03/16/2007 0 05/18/2009 Other injury of other sites of trunk 01/16/2006 07/01/2007 ASA CLASS III 05/07/2005 07/12/2021 Other ventral hernia without mention of obstruction or gangrene 03/26/2004 07/01/2007 THROMBOPHLEBITIS NOS(aka DVT) 07/21/2003 08/21/2009 PULMON EMBOLISM/INFARCT(aka EMBOLISM) 07/21/2003 08/21/2009 documented as of this encounter (statuses as of 07/15/2023) [facility] History of Past illness Narrative* Problem Noted Date Diagnosed Date Resolved Date Screening for colon cancer 11/24/2016 0 07/12/2021 Overview: Added automatically from request for surgery [id number] Pain in joint, lower leg 11/14/2008 MASS IN SUBCUTANEOUS TISSUE 07/21/2008 08/18/2018 Non-healing surgical wound 03/16/2007 0 05/18/2009 Other injury of other sites of trunk 01/16/2006 07/01/2007 ASA CLASS III 05/07/2005 07/12/2021 Other ventral hernia without mention of obstruction or gangrene 03/26/2004 07/01/2007 THROMBOPHLEBITIS NOS(aka DVT) 07/21/2003 08/21/2009 PULMON EMBOLISM/INFARCT(aka EMBOLISM) 07/21/2003 08/21/2009 documented as of this encounter (statuses as of 07/23/2023) [facility] Mono Lemon [facility] Note Date/Time September 06, 2024 9:49a m [facility] Medical Records Department [address] [place] [id number] Anesthesia Postop Eval I 09/06/24 0948 MR#: [id number] Acct: [id number] Name: MARI LOPEZ Rep #:[id number] : 1940 84 From: Mono PENG PCP: BR[facility]N Aguillon Status:REG S DC Y Race: C Location: [place] [address] Anesthesia: Postop Eval I Current Vital Signs [...] CRNA Cosigner Signature: Date CC: ~ Signed [facility] Work Phone: Discharge summary Author Jc Mireles [facility] Note Date/Time October 26, 2024 11:1 6am [facility] Medical Records Department [address] [place] [address] Emergency Department Summary 10/26/24 MR#: [id number] Acct: [id number] Name: MARI LOPEZ Rep #:[id number] : 1940 84 From: Jc brown DO [...] intact Psych: Cooperative, appropriate mood and affect [facility] Medical History VRE (vancomycin resistant enterococcus) [...] [place], [place], [place] until fully. Print Language: [place] Disposition Disposition: Home, Self Care What to do if you have Problems For any increased pain, shortness of breath, bleeding, nausea or vomiting, chestpain, or any unexpected problems, contact your Primary Care Provider. Call [facility] ([phone]) or report to the closest Emergency Room. Call 911 if necessary. 10/26/24 1116 <Electronically signed by Jc Mireles DO> Cosigner Signature (if applicable): CC: Dr. Lizy Capone MD ~ Signed [facility] Work Phone: Evaluation [...] Chest pain, unspecified [facility] Diagnosis Left upper quadrant abdominal pain [facility] Diagnosis Left upper quadrant abdominal pain [facility]* Diagnosis Insomnia, unspecified type [facility]* Diagnosis Rib pain on left side- Primary Chest pain, unspecified [facility]* Diagnosis Onset Date Resolution Status Dyspnea on minimal exertion acute Essential (primary) hypertension chronic [facility] Work Phone: Evaluation note* Diagnosis Lumbar spondylosis- Primary Lumbosacral spondylosis without myelopathy Other chronic pain Thoracic spine pain Pain in thoracic spine Myofascial pain Mylagia and myositis, unspecified [facility]* Diagnosis Lumbar spondylosis Lumbosacral spondylosis without myelopathy Thoracic spine pain Pain in thoracic spine [facility]* Diagnosis Rib pain Chest pain, unspecified [facility]* Diagnosis Chronic midline low back pain with sciatica, sciatica laterality unspecified- Primary [facility]* Diagnosis Insomnia, unspecified type [facility]* Diagnosis Chronic midline low back pain with sciatica, sciatica laterality unspecified- Primary [facility]* Diagnosis Lymphedema- Primary Other lymphedema [facility]* Diagnosis Lymphedema- Primary Other lymphedema Lumbar spondylosis Lumbosacral spondylosis without myelopathy Thoracic spine pain Pain in thoracic spine Myofascial pain Mylagia and myositis, unspecified [facility]* Diagnosis Bilateral leg edema Edema [facility]* Diagnosis Lymphedema- Primary Other lymphedema [facility]* Diagnosis Lumbar spondylosis- Primary Lumbosacral spondylosis without myelopathy [facility]* Diagnosis Lymphedema- Primary Other lymphedema Lumbar spondylosis Lumbosacral spondylosis without myelopathy Lumbar spondylosis Lumbosacral spondylosis without myelopathy [facility]* Diagnosis Lymphedema- Primary Other lymphedema Lumbar spondylosis Lumbosacral spondylosis without myelopathy Lumbar spondylosis Lumbosacral spondylosis without myelopathy [facility] Diagnosis Onset Date Resolution Status Chronic acquired lymphedema chronic [facility] Work Phone: Evaluation note* Diagnosis Lumbar spondylosis Lumbosacral spondylosis without myelopathy Lumbar spondylosis Lumbosacral spondylosis without myelopathy [facility] Diagnosis Lumbar spondylosis- Primary Lumbosacral spondylosis without myelopathy Myofascial pain Mylagia and myositis, unspecified Other chronic pain Lumbar spondylosis Lumbosacral spondylosis without myelopathy [facility]* Diagnosis Onset Date Resolution Status Chronic acquired lymphedema chronic Abdominal ascites acute Swelling of left lower extremity acute Chronic acquired lymphedema chronic [facility] Work Phone: Evaluation note* Diagnosis Lymphedema- Primary Other lymphedema Lumbar spondylosis Lumbosacral spondylosis without myelopathy [facility] Diagnosis Leg swelling- Primary Swelling of limb Shortness of breath Shortness of breath Abdominal distension Flatulence, eructation, and gas pain Function kidney decreased Unspecified disorder of kidney and ureter Lumbar spondylosis Lumbosacral spondylosis without myelopathy [facility] Diagnosis Abdominal distension Flatulence, eructation, and gas pain Lumbar spondylosis Lumbosacral spondylosis without myelopathy [facility] Diagnosis Lymphedema- Primary Other lymphedema Lumbar spondylosis Lumbosacral spondylosis without myelopathy [facility] B[facility] edema Edema Lumbar spondylosis Lumbosacral spondylosis without myelopathy [facility] Insomnia, unspecified type [facility] Diagnosis Lumbar spondylosis- Primary Lumbosacral spondylosis without myelopathy Myofascial pain Mylagia and myositis, unspecified [facility] Diagnosis Onset Date Resolution Status Chronic acquired lymphedema chronic Swelling of left lower extremity acute Chronic acquired lymphedema chronic Acute diastolic (congestive) heart failure acute Dyspnea on minimal exertion acute Essential (primary) hypertension chronic [facility] Work Phone: Evaluation note* Diagnosis Lumbar spondylosis- Primary Lumbosacral spondylosis without myelopathy Lumbar spondylosis Lumbosacral spondylosis without myelopathy [facility] Diagnosis Female stress incontinence- Primary Lumbar spondylosis Lumbosacral spondylosis without myelopathy [facility]* Diagnosis Onset Date Resolution Status Chronic acquired lymphedema chronic Swelling of left lower extremity acute Chronic acquired lymphedema chronic Dyspnea on minimal exertion acute Essential (primary) hypertension chronic [facility] Work Phone: Evaluation note* Diagnosis Onset Date Resolution Status Chronic acquired lymphedema chronic Swelling of left lower extremity acute Chronic acquired lymphedema chronic Dyspnea on minimal exertion acute Essential (primary) hypertension chronic (HFpEF) heart failure with preserved ejection fraction chronic Essential (primary) hypertension [facility] Work Phone: Evaluation note* Diagnosis Insomnia, unspecified type [facility]* Diagnosis C. difficile colitis- Primary Intestinal infection due to clostridium difficile Rectal bleeding Hemorrhage of rectum and anus Change in stool Nonspecific abnormal finding in stool contents Fall, initial encounter [facility]* Diagnosis Onset Date Resolution Status (HFpEF) heart failure with preserved ejection fraction chronic Essential (primary) hypertension [facility] Work Phone: Evaluation note* Diagnosis Lumbar spondylosis- Primary Lumbosacral spondylosis without myelopathy Anxiety due to invasive procedure [facility] Diagnosis Dysuria- Primary Female stress incontinence Leg swelling Swelling of limb Chronic knee pain, unspecified laterality Chronic right-sided low back pain without sciatica Change in stool Nonspecific abnormal finding in stool contents [facility]* Diagnosis Female stress incontinence- Primary Urge urinary incontinence Urge incontinence [facility]* Diagnosis Lumbar spondylosis- Primary Lumbosacral spondylosis without myelopathy [facility]* Diagnosis Insomnia, unspecified type [facility]* Diagnosis Chronic bilateral low back pain without sciatica- Primary Lumbar spondylosis Lumbosacral spondylosis without myelopathy [facility] Diagnosis Onset Date Resolution Status Chest pain acute (HFpEF) heart failure with preserved ejection fraction chronic Essential (primary) hypertension [facility] Work Phone: Evaluation note* Diagnosis Chronic bilateral low back pain without sciatica- Primary Lumbar spondylosis Lumbosacral spondylosis without myelopathy [facility]* Diagnosis Lumbar spondylosis- Primary Lumbosacral spondylosis without myelopathy Chronic bilateral low back pain without sciatica [facility]* Diagnosis Insomnia, unspecified type- Primary [facility]* Diagnosis Lumbar spondylosis- Primary Lumbosacral spondylosis without myelopathy Myofascial pain Mylagia and myositis, unspecified [facility]* Diagnosis Onset Date Resolution Status Chest pain acute (HFpEF) heart failure with preserved ejection fraction chronic Essential (primary) hypertension chronic (HFpEF) heart failure with preserved ejection fraction chronic [facility] Work Phone: Evaluation note* Diagnosis Rib pain Chest pain, unspecified [facility]* Diagnosis Female stress incontinence- Primary Chronic right-sided low back pain without sciatica BENIGN HYPERTENSION(aka HTN) Essential hypertension, benign Hypothyroidism, acquired Unspecified hypothyroidism Insomnia, unspecified type Leg swelling Swelling of limb Decreased glomerular filtration rate (GFR) Chronic knee pain, unspecified laterality Acute pain of left shoulder [facility]* Diagnosis Decreased glomerular filtration rate (GFR)- Primary [facility] [facility] Diagnosis Primary osteoarthritis of both shoulders- Primary Lumbar spondylosis Lumbosacral spondylosis without myelopathy Myofascial pain Mylagia and myositis, unspecified Rotator cuff impingement syndrome, unspecified laterality [facility] Diagnosis Lumbar spondylosis Lumbosacral spondylosis without myelopathy Spinal stenosis of lumbar region without neurogenic claudication Spinal stenosis, lumbar region, without neurogenic claudication Thoracic spine pain Pain in thoracic spine Chronic midline thoracic back pain [facility] Diagnosis Closed fracture of base of fifth metatarsal bone of right foot at metaphyseal-diaphyseal junction, initial encounter [facility] Fall, initial encounter [facility] Diagnosis Primary osteoarthritis of both shoulders Rotator cuff impingement syndrome, unspecified laterality [facility] Diagnosis Primary osteoarthritis of both shoulders- Primary [facility] Diagnosis Primary osteoarthritis of both shoulders- Primary [facility] Diagnosis Primary osteoarthritis of both shoulders- Primary [facility] Diagnosis Primary osteoarthritis of both shoulders- Primary [facility]* Diagnosis 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 [facility]* Diagnosis Onset Date Resolution Status Constipation acute Acute kidney injury superimp osed on chronic kidney disease [facility] Work Phone: Evaluation note* Diagnosis Onset Date Resolution Status Constipation acute Dyspnea on minimal exertion acute Fecal impaction in rectum ac [place] Acute kidney injury superimp osed on chronic kidney disease [facility] Work Phone: Evaluation note* Diagnosis Pleurodynia Painful respiration [facility] Diagnosis Leg swelling Swelling of limb [facility]* Diagnosis Insomnia, unspecified type [facility] Diagnosis Primary osteoarthritis of both shoulders- Primary [facility]* Diagnosis Female stress incontinence- Primary Chronic [...] constipation Unspecified constipation [facility] Diagnosis Primary osteoarthritis of both shoulders- Primary Lumbar spondylosis Lumbosacral spondylosis without myelopathy Myofascial pain Mylagia and myositis, unspecified Pleurodynia Painful respiration [facility]* Diagnosis Insomnia, unspecified type- Primary [facility] this [facility]* Diagnosis Dizziness- Primary Dizziness and giddiness [...] Insomnia, unspecified type [facility] Diagnosis Leg swelling Swelling of limb [facility] Diagnosis Primary osteoarthritis of both shoulders- Primary [facility] Diagnosis 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 hyperplasia with atypia IUD (intrauterine device) in place Presence of intrauterine contraceptive device [facility] Diagnosis Insomnia, unspecified type [facility] Diagnosis Falls- Primary Unspecified fall Balance problem Other symptoms involving nervous and musculoskeletal systems [facility] Diagnosis Primary osteoarthritis of both shoulders- Primary Lumbar spondylosis Lumbosacral spondylosis without myelopathy documented [facility] Diagnosis Hypothyroidism, acquired- Primary Unspecified hypothyroidism documented [facility] Diagnosis Acute cough [facility] Diagnosis SOB (shortness of breath) Shortness of breath Rib pain on left side Chest pain, unspecified [facility] Diagnosis BENIGN HYPERTENSION(aka HTN)- Primary Essential [...] single bacterial disease documented in this encounter [facility]* Diagnosis Insomnia, unspecified type [facility] Diagnosis 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) Chronic obstructive pulmonary disease, unspecified COPD [...] Insomnia, unspecified type [facility] Diagnosis Lower respiratory infection- Primary Other diseases of respiratory system, not elsewhere classified documented [facility] Diagnosis Anemia in chronic kidney disease, [...] constipation Unspecified constipation [facility] Diagnosis Lower respiratory infection Other diseases of respiratory system, not elsewhere classified [facility] Diagnosis Subacute cough- Primary Cough documented [facility] Diagnosis Subacute cough Cough [facility]* Diagnosis Subacute cough- Primary Cough Leg swelling Swelling of limb SOB (shortness of breath) Shortness of breath Lower respiratory infection Other diseases of respiratory system, not elsewhere classified [facility] Diagnosis BENIGN HYPERTENSION(aka HTN)- Primary Essential hypertension, benign Lumbar spondylosis Lumbosacral spondylosis without myelopathy Myofascial pain Mylagia and myositis, unspecified Hypothyroidism, acquired Unspecified hypothyroidism Anemia in chronic kidney disease, unspecified CKD stage CKD (chronic kidney disease) stage 4, GFR 15-29 ml/min (HCC) Chronic kidney disease, Stage IV (severe) Bilateral leg edema Edema [facility] Diagnosis BENIGN HYPERTENSION(aka HTN)- Primary Essential hypertension, benign Seizures (HCC) Other convulsions Hypothyroidism, acquired Unspecified hypothyroidism Renal failure, unspecified chronicity CKD (chronic kidney disease) stage 4, GFR 15-29 ml/min (HCC) Chronic kidney disease, Stage IV (severe) Insomnia, unspecified type Recurrent UTI (urinary tract infection) Urinary tract infection, site not specified Bilateral leg edema Edema [facility] Author Michelle Gallardo [facility] Note Date/Time September 28, 2024 8:47 pm [facility] Medical Records Department [address] [place] [address] H&P Exam - Hospitalist 09/28/241999 MR#: [id number] Acct: [id number] Name: MARI LOPEZ Rep #:[id number] : 1940 84 From: Michelle Gallardo MD PCP: BROOKLYN Aguillon Status:ADM I N Location: [place] [address] HPI - General General Date of Admission: [...] Chronic lymphedema, HFpEF who presents to the [facility] ED on 09/28/2024 with history of [...] will be administered dose low dose kayexelate. [facility] Medical History (Updated 09/28/24 @ 20:45 by [...] bisacodyl 10 mg rectal suppository 10 mg DC X1 PRN Con stipation #1 ea 06/09/24 [...] % (Auto) 66.9, Lymph % (Auto) 20.1, Hart % (Auto) 8.7, Eos % (Auto) 3.6, [...] IMPRESSION: No obvious acute fracture. Reading Location: [facility] Brain CT 09/28/24 17:00 IMPRESSION: No acute intracranial process. Consider MR if symptoms persist. Reading Location: [facility] Knee X-Ray 09/28/24 17:05 IMPRESSION: No obvious acute fracture. Reading Location: [facility] Assessment & Plan Assessment/Plan (1) JOSE (acute kidney injury): PLAN: Plan The patient is an 84 y/o F w/ PMHx: PAF, COPD, Anxiety and depression, Morbid obesity, Seizure disorder, GERD, HTN, HLD, CKD stage III unclear subtype versus Stage IV, Chronic macrocytic anemia/Fe deficiency anemia, TADEO on CPAP, Hx VTE (DVT, PE), Hypothyroidism, Chronic lymphedema, HFpEF who presents to the [facility] ED on 09/28/2024 with history of [...] 16 minutes. Charges/Coding Visit Charges Inpatient E&M: 38947 Init Hosp L3 Procedures Hospitalists Procedures: 98772 Advncd Care Plan 30 Min 09/28/242046 <Electronically signed by Michelle Gallardo MD> Cosigner Signature (if applicable): CC: BROOKLYN Orozco; Dr. Michelle Gallardo MD~ Signed [facility] Work Phone: Hospital Discharge instructions Additional Instructions X-ray right leg negative. Continue ice to help with burning. Jeancarlos wrap to help with compression. You have medication of oxycodone use at facility. Daily wound care. Follow-up with wound care clinic to make sure appropriate healing.[facility] Work Phone: Hospital Discharge instructionsAdditional Instructions Would recommend Zofran and ODT instead of Zofran tablets.[facility] Work Phone: Hospital Discharge instructionsAdditional Instructions Discharge home with friend 10/20/2024, [facility] PT/OT/SN. Wound Instructions Cleanse blisters to the right thigh donor site gently with soap and water, pat dry. apply hydrogel and Adaptic and cover with ABD pad, change BID and prn. Foam dressing to blisters right hip (rubs on attends). change every other day and prn. Apply Aquaphor to graft site RLE.[facility] Work Phone: Reason for referral (narrative)* Diagnostic Procedure Only (Routine) - Closed Specialty Diagnoses / Procedures Referred By Maryseac t Referred To Contact XR IMAGING Diagnoses SOB (shortness of breath) Rib pain on left side Procedures XR RIBS/CHEST 3V AP RIB/OBLS/CXR LEFT RADEX RIBS UNI W/POSTEROANT CH MINIMUM 3 VIEWS Lizy Capone MD [address] [place] [address] Xr Imaging Referral ID Status Reason Start Date Expiration Date V isits Requested Visits Authorized [id number] Closed Auto-Generate d Referral 07/16/2021 08/15/2022 1 [facility] - Authorized Specialty Diagnoses / Procedures Referred By Contac t Referred To Contact Physical Therapy Diagnoses Lumbar spondylosis Thoracic spine pain Myofascial pain Procedures CONSULT TO PHYSICAL THERAPY Avis Marrufo APRN.ACCOUNTANT [address] [place] [address] Referral ID Status Reason Start Date Expiration Date V isits Requested Visits Authorized [id number] Authorized 09/19/2021 12/18/2021 99 99 * Diagnostic Procedure Only (Routine) - Pending Review Specialty Diagnoses / Procedures Referred By Contac t Referred To Contact XR IMAGING Diagnoses Thoracic spine pain Procedures XR THORACIC LIMITED 2V AP/LAT RADEX SPINE THORACIC 2 VIEWS Avis Marrufo APRN.ACCOUNTANT [address] [place] [address] Xr Imaging Referral ID Status Reason Start Date Expiration Date Visits Requested Visits Authorized [id number] Pending Review Auto-Generat ed Referral 09/19/2021 10/19/2022 1 1 * Diagnostic Procedure Only (Routine) - Pending Review Specialty Diagnoses / Procedures Referred By Contac t Referred To Contact XR IMAGING Diagnoses Lumbar spondylosis Procedures XR LUMBAR MOTION 4V AP/LAT/ FLEX/EXT RADEX SPINE LUMBOSACRAL MINIMUM 4 VIEWS Avis Marrufo APRN.ACCOUNTANT [address] [place] [address] Xr Imaging Referral ID Status Reason Start Date Expiration Date Visits Requested Visits Authorized [id number] Pending Review Auto-Generat ed Referral 09/19/2021 10/19/2022 1 1 [facility] for referral (narrative)* Diagnostic Procedure Only (Routine) - Closed Specialty Diagnoses / Procedures Referred By Contac t Referred To Contact XR IMAGING Diagnoses Thoracic spine pain Procedures XR THORACIC LIMITED 2V AP/LAT RADEX SPINE THORACIC 2 VIEWS Avis Marrufo NAILER OPERATOR.ACCOUNTANT [address] [place] [address] Xr Imaging Referral ID Status Reason Start Date Expiration Date V isits Requested Visits Authorized [id number] Closed Auto-Generate d Referral 09/19/2021 10/19/2022 1 1 * Diagnostic Procedure Only (Routine) - Closed Specialty Diagnoses / Procedures Referred By Contac t Referred To Contact XR IMAGING Diagnoses Lumbar spondylosis Procedures XR LUMBAR MOTION 4V AP/LAT/ FLEX/EXT RADEX SPINE LUMBOSACRAL MINIMUM 4 VIEWS Avis Marrufo NAILER OPERATOR.ACCOUNTANT [address] [place] [address] Xr Imaging Referral ID Status Reason Start Date Expiration Date V isits Requested Visits Authorized [id number] Closed Auto-Generate d Referral 09/19/2021 10/19/2022 1 1 [facility] for referral (narrative)* Diagnostic Procedure Only (Urgent) - Closed Specialty Diagnoses / Procedures Referred By Contac t Referred To Contact US IMAGING Diagnoses Abdominal distension Procedures US ABDOMEN COMPLETE US ABDOMINAL REAL TIME W/IMAGE DOCUMENTATION Miryam Orozco APRN.ACCOUNTANT [address] [place] [address] Us Imaging Referral ID Status Reason Start Date Expiration Date V isits Requested Visits Authorized [id number] Closed Auto-Generate d Referral 01/02/2022 02/01/2023 1 1 [facility] for referral (narrative)* Diagnostic Procedure Only (Routine) - Closed Specialty Diagnoses / Procedures Referred By Contac t Referred To Contact XR IMAGING Diagnoses Fall, initial encounter Procedures XR ELBOW SPECIAL VIEWS AP/LAT/OTHER LEFT RADEX ELBOW COMPLETE MINIMUM 3 VIEWS Jae Cagle MD [address] [place] [address] Xr Imaging Referral ID Status Reason Start Date Expiration Date V isits Requested Visits Authorized [id number] Closed Auto-Generate d Referral 05/13/2022 06/12/2023 1 1 * Diagnostic Procedure Only (Routine) - Closed Specialty Diagnoses / Procedures Referred By Contac t Referred To Contact XR IMAGING Diagnoses Fall, initial encounter Procedures XR HIP GENERAL 3V PELV/AP/LAT RIGHT RADEX HIP UNILATERAL WITH PELVIS 2-3 VIEWS Jae Cagle MD [address] [place] [address] Xr Imaging Referral ID Status Reason Start Date Expiration Date V isits Requested Visits Authorized [id number] Closed Auto-Generate d Referral 05/13/2022 06/12/2023 1 1 [facility] for referral (narrative)* Outpatient Procedure (Routine) - Pending Review Specialty Diagnoses / Procedures Referred By Kallie t Referred To Contact [facility] Diagnoses Female stress incontinence Urge urinary incontinence Procedures URODYNAMICS WHI COMPLX CYSTOMETRO W/VOID PRESS&URETHRAL PROFILE Ragini Gomes APRN.CNP [address] [place] [address] x2 [facility] [address] [place] [address] Referral ID Status Reason Start Date Expiration Date Visits Requested Visits Authorized [id number] Pending Review Auto-Generat ed Referral 06/30/2022 06/30/2023 1 1 [facility] for referral (narrative)* Diagnostic Procedure Only (Routine) - Closed Specialty Diagnoses / Procedures Referred By Kallie t Referred To Contact XR IMAGING Diagnoses Primary osteoarthritis of both shoulders Rotator cuff impingement syndrome, unspecified laterality Procedures XR SHOULDER [id number] AP/TRUE AP RIGHT RADEX SHOULDER COMPLETE MINIMUM 2 VIEWS Roque Delgado MD [address] [address] [place] [address] Referral ID Status Reason Start Date Expiration Date V isits Requested Visits Authorized [id number] Closed Auto-Generate d Referral 01/15/2023 02/14/2024 1 1 * Diagnostic Procedure Only (Routine) - Closed Specialty Diagnoses / Procedures Referred By Contac t Referred To Contact XR IMAGING Diagnoses Primary osteoarthritis of both shoulders Rotator cuff impingement syndrome, unspecified laterality Procedures XR SHOULDER LIMITED 2V AP/TRUE AP LEFT RADEX SHOULDER COMPLETE MINIMUM 2 VIEWS Roque Delgado MD [address] [place] [address] [place] [address] Referral ID Status Reason Start Date Expiration Date V isits Requested Visits Authorized [id number] Closed Auto-Generate d Referral 01/15/2023 02/14/2024 1 1 [facility] for referral (narrative)* Diagnostic Procedure Only (Routine) - Closed Specialty Diagnoses / Procedures Referred By Contac t Referred To Contact XR IMAGING Diagnoses Closed fracture of base of fifth metatarsal bone of right foot at metaphyseal-diaphyseal junction, initial encounter Procedures XR FOOT GENERAL 3V AP/LAT/OBL RIGHT RADEX FOOT COMPLETE MINIMUM 3 VIEWS Roque Delgado MD [address] [facility] [address] [place] [address] [place] [address] Referral ID Status Reason Start Date Expiration Date V isits Requested Visits Authorized [id number] Closed Auto-Generate d Referral 07/31/2022 08/30/2023 1 1 [facility] for referral (narrative)* Diagnostic Procedure Only (Routine) - Closed Specialty Diagnoses / Procedures Referred By Contac t Referred To Contact XR IMAGING Diagnoses Fall, initial encounter Procedures XR ELBOW SPECIAL VIEWS AP/LAT/OTHER LEFT RADEX ELBOW COMPLETE MINIMUM 3 VIEWS Jae Cagle MD [address] [place] [address] [place] [address] Referral ID Status Reason Start Date Expiration Date V isits Requested Visits Authorized [id number] Closed Auto-Generate d Referral 05/13/2022 06/12/2023 1 1 * Diagnostic Procedure Only (Routine) - Closed Specialty Diagnoses / Procedures Referred By Maryseac t Referred To Contact XR IMAGING Diagnoses Fall, initial encounter Procedures XR HIP GENERAL 3V PELV/AP/LAT RIGHT RADEX HIP UNILATERAL WITH PELVIS 2-3 VIEWS Jae Cagle MD [address] [facility] [place] [place] [address] [place] [address] Referral ID Status Reason Start Date Expiration Date V isits Requested Visits Authorized [id number] Closed Auto-Generate d Referral 05/13/2022 06/12/2023 1 1 [facility] for referral (narrative)* Diagnostic Procedure Only (Routine) - Closed Specialty Diagnoses / Procedures Referred By Kallie alejandra Referred To Contact XR IMAGING Diagnoses Primary osteoarthritis of both shoulders Rotator cuff impingement syndrome, unspecified laterality Procedures XR SHOULDER [id number] AP/TRUE AP RIGHT RADEX SHOULDER COMPLETE MINIMUM 2 VIEWS Roque Delgado MD [address] [address] [place] [address] Referral ID Status Reason Start Date Expiration Date V isits Requested Visits Authorized [id number] Closed Auto-Generate d Referral 01/15/2023 02/14/2024 1 1 * Diagnostic Procedure Only (Routine) - Closed Specialty Diagnoses / Procedures Referred By Kallie alejandra Referred To Contact XR IMAGING Diagnoses Primary osteoarthritis of both shoulders Rotator cuff impingement syndrome, unspecified laterality Procedures XR SHOULDER LIMITED 2V AP/TRUE AP LEFT RADEX SHOULDER COMPLETE MINIMUM 2 VIEWS Roque Delgado MD [address] [place] [address] [place] [address] Referral ID Status Reason Start Date Expiration Date V isits Requested Visits Authorized [id number] Closed Auto-Generate d Referral 01/15/2023 02/14/2024 1 1 [facility] for referral (narrative)* Diagnostic Procedure Only (Routine) - Closed Specialty Diagnoses / Procedures Referred By Contac t Referred To Contact XR IMAGING Diagnoses SOB (shortness of breath) Rib pain on left side Procedures XR RIBS/CHEST 3V AP RIB/OBLS/CXR LEFT RADEX RIBS UNI W/POSTEROANT CH MINIMUM 3 VIEWS Lizy Capone MD [address] [place] [address] [place] [address] Referral ID Status Reason Start Date Expiration Date V isits Requested Visits Authorized [id number] Closed Auto-Generate d Referral 07/16/2021 08/15/2022 1 1 [facility] for visit Narrative* Diagnostic Procedure Only (Routine) - Closed Specialty Diagnoses / Procedures Referred By Contac t Referred To Contact XR IMAGING Diagnoses Thoracic spine pain Procedures XR THORACIC LIMITED 2V AP/LAT RADEX SPINE THORACIC 2 VIEWS Avis Marrufo, NAILER OPERATOR.ACCOUNTANT [address] [place] [address] Xr Imaging Referral ID Status Reason Start Date Expiration Date V isits Requested Visits Authorized [id number] Closed Auto-Generate d Referral 09/19/2021 10/19/2022 1 1 [facility] for visit Narrative* Diagnostic Procedure Only (Urgent) - Closed Specialty Diagnoses / Procedures Referred By Contac t Referred To Contact US IMAGING Diagnoses Abdominal distension Procedures US ABDOMEN COMPLETE US ABDOMINAL REAL TIME W/IMAGE DOCUMENTATION Miryam Orozco, NANCI.ACCOUNTANT [address] [place] [address] Us Imaging Referral ID Status Reason Start Date Expiration Date V isits Requested Visits Authorized [id number] Closed Auto-Generate d Referral 01/02/2022 02/01/2023 1 1 [facility] for visit Narrative* Diagnostic Procedure Only (Routine) - Closed Specialty Diagnoses / Procedures Referred By Contac t Referred To Contact XR IMAGING Diagnoses Closed fracture of base of fifth metatarsal bone of right foot at metaphyseal-diaphyseal junction, initial encounter Procedures XR FOOT GENERAL 3V AP/LAT/OBL RIGHT RADEX FOOT COMPLETE MINIMUM 3 VIEWS Roque Delgado MD [address] [address] [place] [address] Referral ID Status Reason Start Date Expiration Date V isits Requested Visits Authorized [id number] Closed Auto-Generate d Referral 07/31/2022 08/30/2023 1 1 [facility] for visit Narrative* Diagnostic Procedure Only (Routine) - Closed Specialty Diagnoses / Procedures Referred By Contac t Referred To Contact XR IMAGING Diagnoses Fall, initial encounter Procedures XR ELBOW SPECIAL VIEWS AP/LAT/OTHER LEFT RADEX ELBOW COMPLETE MINIMUM 3 VIEWS Jae Cagle MD [address] [place] [address] [place] [address] Referral ID Status Reason Start Date Expiration Date V isits Requested Visits Authorized [id number] Closed Auto-Generate d Referral 05/13/2022 06/12/2023 1 1 [facility] for visit Narrative* Diagnostic Procedure Only (Routine) - Closed Specialty Diagnoses / Procedures Referred By Contac t Referred To Contact XR IMAGING Diagnoses Primary osteoarthritis of both shoulders Rotator cuff impingement syndrome, unspecified laterality Procedures XR SHOULDER [id number] AP/TRUE AP RIGHT RADEX SHOULDER COMPLETE MINIMUM 2 VIEWS Roque Delgado MD [address] [address] [place] [address] Referral ID Status Reason Start Date Expiration Date V isits Requested Visits Authorized [id number] Closed Auto-Generate d Referral 01/15/2023 02/14/2024 1 1 [facility] for visit Narrative* Diagnostic Procedure Only (Routine) - Closed Specialty Diagnoses / Procedures Referred By Contac t Referred To Contact XR IMAGING Diagnoses SOB (shortness of breath) Rib pain on left side Procedures XR RIBS/CHEST 3V AP RIB/OBLS/CXR LEFT RADEX RIBS UNI W/POSTEROANT CH MINIMUM 3 VIEWS Lizy Capone MD [address] [place] [address] [place] [address] Referral ID Status Reason Start Date Expiration Date V isits Requested Visits Authorized [id number] Closed Auto-Generate d Referral 07/16/2021 08/15/2022 1 1 [facility] for visit Narrative* Auth/Cert Specialty Diagnoses / Procedures Referred By Contac t Referred To Contact Diagnoses status Kindra Gannon MD [address] [place] [address] Phone: tel: fax: [facility] [address] [place] [address] Referral ID Status Reason Start Date Expiration Date Visits Re quested Visits Authorized [id number] 1 1 [facility] Advance Directives No Advanced Directives Records FoundDocuments on File Type Date Recorded 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 Advance Directive(s) 12/23/2016 7:30 PM Advance Directive(s) 05/22/2006 12:00 AM Advance Directive(s) 05/21/2006 12:00 AM Documents on File Type Date Recorded 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 Advance Directive(s) 12/23/2016 7:30 PM Advance Directive(s) 05/22/2006 12:00 AM Advance Directive(s) 05/21/2006 12:00 AM Advance Directive Response Recorded Date/ Time Advance Directives Yes April 15, 2016 10:57am Living Will Yes December 31, 2017 2:02pm Power of Wildlife Conservationist Yes December 2:02pm Documents on File Type Date Recorded 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 Advance Directive(s) 05/22/2006 Advance Directive(s) 05/21/2006 Documents on File Type Date Recorded 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 Advance Directive(s) 05/22/2006 Advance Directive(s) 05/21/2006 Advance Directive Response Recorded Date/ Time Advance Directives Yes December 7:36am Living Will Yes December 26, 2021 7:36am Power of Wildlife Conservationist Yes December 7:36am Advance Directive Response Recorded Date/ Time Advance Directives Yes December 6:36am Living Will Yes December 26, 2021 6:36am Power of Wildlife Conservationist Yes December 6:36am Advance Directive Response Recorded Date/ Time Advance Directives on File Yes August 01, 2022 7:31am Name of Medical Power of Wildlife Conservationist Connor Castro August 01, 2022 7:31am Advance Directives Yes August 01 023 7:31am Living Will Yes August 01, 2022 7:31am Power of Wildlife Conservationist Yes August 01 7:31am Advance Directive Response Recorded Date/ Time Advance Directives Yes August 01 023 6:31am Living Will Yes June 07, 2023 9:40pm Power of Wildlife Conservationist Yes June 06 9:40pm Name of Medical Power of Wildlife Conservationist alex vishal June 07, 2023 9:40pm Advance Directive Response Recorded Date/ Time Name of Medical Power of Wildlife Conservationist gonzalo rod June 08, 2023 1:28am Advance Directives Yes August 01 023 6:31am Living Will Yes June 08, 2023 1:28am Power of Wildlife Conservationist Yes June 07 1:28am Documents on File Type Date 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 No May 01, 2024 5:37pm Living Will Yes May 19 025 4:09pm Do you have a Healthcare Pow er of Wildlife Conservationist? Yes May 19, 2024 4:09pm Name of Medical Power of Wildlife Conservationist Katie stewart May 19, 2024 4:09pm Advance Directives Yes August 01 023 7:31am Advance Directive Response Recorded Date/ Time Living Will No May 01 5:37pm Do you have a Healthcare Pow er of Wildlife Conservationist? No May 01, 2024 5:37pm Living Will Yes May 19, 2 025 4:09pm Do you have a Healthcare Pow er of Wildlife Conservationist? Yes May 19, 2024 4:09pm Name of Medical Power of Wildlife Conservationist Katie stewart May 19, 2024 4:09pm Do you have a Healthcare Pow er of Wildlife Conservationist? Yes July 29, 2024 3:00pm Name of Medical Power of Wildlife Conservationist Gonzalo July 29, 2024 3:00pm Advance Directives Yes August 01, 2 023 7:31am Advance Directive Response Recorded Date/ Time Living Will Yes May 19, 2 025 4:09pm Do you have a Healthcare Pow er of Wildlife Conservationist? Yes May 19, 2024 4:09pm Name of Medical Power of Wildlife Conservationist Katie Diazadebayo pat May 19, 2024 4:09pm Do you have a Healthcare Pow er of Wildlife Conservationist? Yes July 29, 2024 3:00pm Name of Medical Power of Wildlife Conservationist Gonzalo July 29, 2024 3:00pm Advance Directives Yes August 01, 2 023 7:31am Advance Directive Response Recorded Date/ Time Do you have a Healthcare Pow er of Wildlife Conservationist? Yes September 02, 2024 11:04am Living Will Yes May 19 025 4:09pm Do you have a Healthcare Pow er of Wildlife Conservationist? Yes May 19, 2024 4:09pm Name of Medical Power of Wildlife Conservationist Katie stewart May 19, 2024 4:09pm Do you have a Healthcare Pow er of Wildlife Conservationist? Yes July 29, 2024 3:00pm Name of Medical Power of Wildlife Conservationist Gonzalo July 29, 2024 3:00pm Advance Directives Yes August 01, 2 023 7:31am Advance Directive Response Recorded Date/ Time Do you have a Healthcare Pow er of Wildlife Conservationist? Yes September 02, 2024 11:04am Do you have a Healthcare Pow er of Wildlife Conservationist? No September 28, 2024 3:13pm Living Will Yes May 19, 2 025 4:09pm Do you have a Healthcare Pow er of Wildlife Conservationist? Yes May 19, 2024 4:09pm Name of Medical Power of Wildlife Conservationist Katie stewart May 19, 2024 4:09pm Do you have a Healthcare Pow er of Wildlife Conservationist? Yes July 29, 2024 3:00pm Name of Medical Power of Wildlife Conservationist Gonzalo July 29, 2024 3:00pm Advance Directives Yes August 01, 2 023 7:31am Advance Directive Response Recorded Date/ Time Do you have a Healthcare Pow er of Wildlife Conservationist? Yes September 02, 2024 11:04am Do you have a Healthcare Pow er of Wildlife Conservationist? Yes September 28, 2024 10:04pm Name of Medical Power of Wildlife Conservationist Cayla Sawyer (Friend) September 28, 2024 10:04pm Living Will Yes May 19, 025 4:09pm Do you have a Healthcare Pow er of Wildlife Conservationist? Yes May 19, 2024 4:09pm Name of Medical Power of Wildlife Conservationist Katie stewart May 19, 2024 4:09pm Do you have a Healthcare Pow er of Wildlife Conservationist? Yes July 29, 2024 3:00pm Name of Medical Power of Wildlife Conservationist Gonzalo July 29, 2024 3:00pm Advance Directives Yes August 01, 2 023 7:31am Advance Directive Response Recorded Date/ Time Do you have a Healthcare Pow er of Wildlife Conservationist? Yes September 02, 2024 11:04am Do you have a Healthcare Pow er of Wildlife Conservationist? Yes September 28, 2024 10:04pm Name of Medical Power of Wildlife Conservationist Cayla Sawyer (Friend) September 28, 2024 10:04pm Do you have a Healthcare Pow er of Wildlife Conservationist? Yes October 05, 2024 6:53pm Name of Medical Power of Wildlife Conservationist keven Collazo on October 05, 2024 6:53pm Do you have a Healthcare Pow er of Wildlife Conservationist? Yes October 12, 2024 2:03pm Do you have a Healthcare Pow er of Wildlife Conservationist? Yes July 29, 2024 3:00pm Name of Medical Power of Wildlife Conservationist Gonzalo July 29, 2024 3:00pm Advance Directives Yes August 01, 2 023 7:31am Advance Directive Response Recorded Date/ Time Do you have a Healthcare Pow er of Wildlife Conservationist? Yes September 02, 2024 11:04am Do you have a Healthcare Pow er of Wildlife Conservationist? Yes September 28, 2024 10:04pm Name of Medical Power of Wildlife Conservationist Cayla Sawyer (Friend) September 28, 2024 10:04pm Do you have a Healthcare Pow er of Wildlife Conservationist? Yes October 05, 2024 6:53pm Name of Medical Power of Wildlife Conservationist Gonzalo Lopez, son October 05, 2024 6:53pm Do you have a Healthcare Pow er of Wildlife Conservationist? Yes October 12, 2024 2:03pm Do you have a Healthcare Pow er of Wildlife Conservationist? Yes October 26, 2024 10:10am Name of Medical Power of Wildlife Conservationist stephanie sawyer- friend and son October 26, 2024 10:10am Do you have a Healthcare Pow er of Wildlife Conservationist? Yes July 29, 2024 3:00pm Name of Medical Power of Wildlife Conservationist Gonzalo July 29, 2024 3:00pm Advance Directives Yes August 01, 023 7:31am Reason for Referral Specialty Diagnoses / Procedures Referred By Contac t Referred To Contact CT IMAGING Diagnoses Left upper quadrant abdominal pain Procedures CT ABD/PEL WO IVCON CT ABD & PEL[place] [address] [place] [address] [address] [address] Referral ID Status Reason Start Date Expiration Date Visits Requested Visits Authorized [id number] Authorized Auto-Generat ed Referral 07/18/2021 08/17/2022 1 1 Referral ID Status Reason Start Date Expiration Date V isits Requested Visits Authorized [id number] Closed Auto-Generate d Referral 07/18/2021 08/17/2022 1 1 Specialty Diagnoses / Procedures Referred By Contac t Referred To Contact Pain Management Diagnoses Rib pain on left side Procedures CONSULT TO PAIN MGT OFFICE/OUTPATIENT [facility] 60-74 MINUTES Lizy Capone MD [address] [place] [address] Referral ID Status Reason Start Date Expiration Date Visits Requested Visits Authorized [id number] Authorized PCP Requested Referral 08/01/2021 08/01/2022 1 1 Specialty Diagnoses / Procedures Referred By Contac t Referred To Contact [facility] Diagnoses Lymphedema Procedures CONSULT TO LYMPHEDEMA THERAPY OFFICE/OUTPATIENT [facility] 60-74 MINUTES Lizy Capone MD [address] [place] [address] [facility] [place] [address] [place] [address] Referral ID Status Reason Start Date Expiration Date Visits Requested Visits Authorized [id number] Authorized Auto-Generat ed Referral 11/13/2021 11/13/2022 99 99 Specialty Diagnoses / Procedures Referred By Contac t Referred To Contact [facility] Diagnoses Lymphedema Procedures CONSULT TO PHYSICAL THERAPY PHYSICAL THERAPY EVALUATION HIGH COMPLEX 45 MINS Lizy Capone MD [address] [place] [address] [facility] [address] [place] [address] Referral ID Status Reason Start Date Expiration Date Visits Requested Visits Authorized [id number] Authorized PCP Requested Referral Auto-Generate d Referral 11/13/2021 11/13/2022 99 99 Specialty Diagnoses / Procedures Referred By Contac t Referred To Contact Nephrology Diagnoses Function kidney decreased Procedures CONSULT TO NEPHROLOGY OFFICE/OUTPATIENT [facility] 60-74 MINUTES Miryam Orozco APRN.ACCOUNTANT [address] [place] [address] Referral ID Status Reason Start Date Expiration Date Visits Requested Visits Authorized [id number] Authorized PCP Requested Referral 01/02/2022 01/02/2023 1 1 Specialty Diagnoses / Procedures Referred By Contac t Referred To Contact US IMAGING Diagnoses Abdominal distension Procedures US ABDOMEN COMPLETE US ABDOMINAL REAL TIME W/IMAGE DOCUMENTATION Miryam Orozco APRN.ACCOUNTANT [address] [place] [address] Us Imaging Referral ID Status Reason Start Date Expiration Date Visits Requested Visits Authorized [id number] Authorized Auto-Generat ed Referral 01/02/2022 02/01/2023 1 1 Specialty Diagnoses / Procedures Referred By Contac t Referred To Contact Urology Diagnoses Female stress incontinence Procedures CONSULT TO UROLOGY OFFICE/OUTPATIENT [facility] MDM 60-74 MINUTES Miryam Orozco APRN.ACCOUNTANT [address] [place] [address] Referral ID Status Reason Start Date Expiration Date Visits Requested Visits Authorized [id number] Authorized PCP Requested Referral 06/26/2022 06/26/2023 1 1 Specialty Diagnoses / Procedures Referred By Contac t Referred To Contact Nephrology Diagnoses Decreased glomerular filtration rate (GFR) Procedures CONSULT TO NEPHROLOGY OFFICE/OUTPATIENT [facility] 60-74 MINUTES Miryam Orozco, NAILER OPERATOR.ACCOUNTANT [address] [place] [address] Referral ID Status Reason Start Date Expiration Date Visits Requested Visits Authorized [id number] Authorized PCP Requested Referral 12/24/2022 12/24/2023 1 1 Specialty Diagnoses / Procedures Referred By Contac t Referred To Contact MR IMAGING Diagnoses Thoracic spine pain Chronic midline thoracic back pain Procedures MRI THORACIC SPINE WO IVCON MRI SPINAL CANAL THORACIC W/O CONTRAST MATRL Avis Marrufo, NAILER OPERATOR.ACCOUNTANT [address] [place] [address] [place] [id number] Referral ID Status Reason Start Date Expiration Date V isits Requested Visits Authorized [id number] Closed Auto-Generate d Referral 04/03/2022 05/03/2023 1 1 Specialty Diagnoses / Procedures Referred By Contac t Referred To Contact MR IMAGING Diagnoses Lumbar spondylosis Spinal stenosis of lumbar region without neurogenic claudication Procedures MRI LUMBAR SPINE WO IVCON MRI SPINAL CANAL LUMBAR W/O CONTRAST MATERIAL Avis Marrufo, NAILER OPERATOR.ACCOUNTANT [address] [place] [address] [place] [address] Referral ID Status Reason Start Date Expiration Date V isits Requested Visits Authorized [id number] Closed Auto-Generate d Referral 04/03/2022 05/03/2023 1 1 Specialty Diagnoses / Procedures Referred By Contac t Referred To Contact [facility] Diagnoses Falls Balance problem Procedures CONSULT TO PHYSICAL THERAPY PHYSICAL THERAPY EVALUATION HIGH COMPLEX 45 MINS Miryam Orozco, NAILER OPERATOR.ACCOUNTANT [address] [place] [address] [facility] [place] [address] [place] [address] Referral ID Status Reason Start Date Expiration Date Visits Requested Visits Authorized [id number] Authorized PCP Requested Referral Auto-Generate d Referral 12/14/2023 12/13/2024 99 99 Specialty Diagnoses / Procedures Referred By Kallie alejandra Referred To Contact Orthopedics Diagnoses Primary osteoarthritis of both shoulders Procedures CONSULT TO ORTHOPAEDICS OFFICE/OUTPATIENT [facility] 60 MINUTES Roque Delgado MD [address] [facility] [address] [place] [address] Referral ID Status Reason Start Date Expiration Date Visits Requested Visits Authorized [id number] Authorized PCP Requested Referral 12/17/2023 12/16/2024 1 [...] HFPEF CP, 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 10/21October 25, 2024 2:12 pm Reason [...] REFERRED October 25, 2024 9 :35am S/P [facility] 10/21October 25, 2024 2:12 pm LOWER [...] dose, On Thu02/16/23 at [address] [facility] 02/16/2023 11:51 AM EST 300 mg lidocaine (PF) 10 mg/mL (1 %) 100 mg injection (XYLOCAINE) 100 mg, OTHER, ONCE, 1 dose, On Thu02/16/23 at [address] [facility] 02/16/2023 11:50 AM EST 100 mg lidocaine (PF) 20 mg/mL (2 %) 200 mg injection (XYLOCAINE) 200 mg, OTHER, ONCE, 1 dose, On Thu02/16/23 at [address] [facility] 02/16/2023 11:51 AM EST 200 mg methylPREDNISolone acetate 40 mg injection (DEPO-Medrol) 40 mg, OTHER, ONCE, 1 dose, On Thu02/16/23 at [address] [facility] 02/16/2023 11:52 AM EST 80 mg [...] or prosecute any alcohol or drug abuse patient.[facility] HospitalIn the event this information is protected by the Federal Confidentiality of Alcohol and Drug Abuse Patient Records regulations: The Federal rules restrict any use of the information to criminally investigate or prosecute any alcohol or drug abuse patient.[facility] HospitalIn the event this information is protected by the Federal Confidentiality of Alcohol and Drug Abuse Patient Records regulations: The Federal rules restrict any use of the information to criminally investigate or prosecute any alcohol or drug abuse patient.[facility] HospitalIn the event this information is protected by the Federal Confidentiality of Alcohol and Drug Abuse Patient Records regulations: The Federal rules restrict any use of the information to criminally investigate or prosecute any alcohol or drug abuse patient.[facility] HospitalIn the event this information is protected by the Federal Confidentiality of Alcohol and Drug Abuse Patient Records regulations: The Federal rules restrict any use of the information to criminally investigate or prosecute any alcohol or drug abuse patient.[facility] HospitalIn the event this information is protected [...] or prosecute any alcohol or drug abuse patient.[facility] HospitalIn the event this information is protected by the Federal Confidentiality of Alcohol and Drug Abuse Patient Records regulations: The Federal rules restrict any use of the information to criminally investigate or prosecute any alcohol or drug abuse patient.[facility] HospitalIn the event this information is protected by the Federal Confidentiality of Alcohol and Drug Abuse Patient Records regulations: The Federal rules restrict any use of the information to criminally investigate or prosecute any alcohol or drug abuse patient.[facility] HospitalIn the event this information is protected by the Federal Confidentiality of Alcohol and Drug Abuse Patient Records regulations: The Federal rules restrict any use of the information to criminally investigate or prosecute any alcohol or drug abuse patient.[facility] HospitalIn the event this information is protected by the Federal Confidentiality of Alcohol and Drug Abuse Patient Records regulations: The Federal rules restrict any use of the information to criminally investigate or prosecute any alcohol or drug abuse patient.[facility] HospitalIn the event this information is protected by the Federal Confidentiality of Alcohol and Drug Abuse Patient Records regulations: The Federal rules restrict any use of the information to criminally investigate or prosecute any alcohol or drug abuse patient.[facility] HospitalIn the event this information is protected by the Federal Confidentiality of Alcohol and Drug Abuse Patient Records regulations: The Federal rules restrict any use of the information to criminally investigate or prosecute any alcohol or drug abuse patient.[facility] HospitalIn the event this information is protected by the Federal Confidentiality of Alcohol and Drug Abuse Patient Records regulations: The Federal rules restrict any use of the information to criminally investigate or prosecute any alcohol or drug abuse patient.[facility] HospitalIn the event this information is protected by the Federal Confidentiality of Alcohol and Drug Abuse Patient Records regulations: The Federal rules restrict any use of the information to criminally investigate or prosecute any alcohol or drug abuse patient.[facility] HospitalIn the event this information is protected by the Federal Confidentiality of Alcohol and Drug Abuse Patient Records regulations: The Federal rules restrict any use of the information to criminally investigate or prosecute any alcohol or drug abuse patient.[facility] HospitalIn the event this information is protected by the Federal Confidentiality of Alcohol and Drug Abuse Patient Records regulations: The Federal rules restrict any use of the information to criminally investigate or prosecute any alcohol or drug abuse patient.[facility] HospitalIn the event this information is protected by the Federal Confidentiality of Alcohol and Drug Abuse Patient Records regulations: The Federal rules restrict any use of the information to criminally investigate or prosecute any alcohol or drug abuse patient.[facility] HospitalIn the event this information is protected by the Federal Confidentiality of Alcohol and Drug Abuse Patient Records regulations: The Federal rules restrict any use of the information to criminally investigate or prosecute any alcohol or drug abuse patient.[facility] HospitalIn the event this information is protected by the Federal Confidentiality of Alcohol and Drug Abuse Patient Records regulations: The Federal rules restrict any use of the information to criminally investigate or prosecute any alcohol or drug abuse patient.[facility] HospitalIn the event this information is protected by the Federal Confidentiality of Alcohol and Drug Abuse Patient Records regulations: The Federal rules restrict any use of the information to criminally investigate or prosecute any alcohol or drug abuse patient.[facility] HospitalIn the event this information is protected by the Federal Confidentiality of Alcohol and Drug Abuse Patient Records regulations: The Federal rules restrict any use of the information to criminally investigate or prosecute any alcohol or drug abuse patient.[facility] HospitalIn the event this information is protected by the Federal Confidentiality of Alcohol and Drug Abuse Patient Records regulations: The Federal rules restrict any use of the information to criminally investigate or prosecute any alcohol or drug abuse patient.[facility] HospitalIn the event this information is protected by the Federal Confidentiality of Alcohol and Drug Abuse Patient Records regulations: The Federal rules restrict any use of the information to criminally investigate or prosecute any alcohol or drug abuse patient.[facility] HospitalIn the event this information is protected by the Federal Confidentiality of Alcohol and Drug Abuse Patient Records regulations: The Federal rules restrict any use of the information to criminally investigate or prosecute any alcohol or drug abuse patient.[facility] HospitalIn the event this information is protected by the Federal Confidentiality of Alcohol and Drug Abuse Patient Records regulations: The Federal rules restrict any use of the information to criminally investigate or prosecute any alcohol or drug abuse patient.[facility] HospitalIn the event this information is protected by the Federal Confidentiality of Alcohol and Drug Abuse Patient Records regulations: The Federal rules restrict any use of the information to criminally investigate or prosecute any alcohol or drug abuse patient.[facility] HospitalIn the event this information is protected by the Federal Confidentiality of Alcohol and Drug Abuse Patient Records regulations: The Federal rules restrict any use of the information to criminally investigate or prosecute any alcohol or drug abuse patient.[facility] HospitalIn the event this information is protected by the Federal Confidentiality of Alcohol and Drug Abuse Patient Records regulations: The Federal rules restrict any use of the information to criminally investigate or prosecute any alcohol or drug abuse patient.[facility] HospitalIn the event this information is protected by the Federal Confidentiality of Alcohol and Drug Abuse Patient Records regulations: The Federal rules restrict any use of the information to criminally investigate or prosecute any alcohol or drug abuse patient.[facility] HospitalIn the event this information is protected by the Federal Confidentiality of Alcohol and Drug Abuse Patient Records regulations: The Federal rules restrict any use of the information to criminally investigate or prosecute any alcohol or drug abuse patient.[facility] HospitalIn the event this information is protected by the Federal Confidentiality of Alcohol and Drug Abuse Patient Records regulations: The Federal rules restrict any use of the information to criminally investigate or prosecute any alcohol or drug abuse patient.[facility] HospitalIn the event this information is protected by the Federal Confidentiality of Alcohol and Drug Abuse Patient Records regulations: The Federal rules restrict any use of the information to criminally investigate or prosecute any alcohol or drug abuse patient.[facility] HospitalIn the event this information is protected by the Federal Confidentiality of Alcohol and Drug Abuse Patient Records regulations: The Federal rules restrict any use of the information to criminally investigate or prosecute any alcohol or drug abuse patient.[facility] HospitalIn the event this information is protected by the Federal Confidentiality of Alcohol and Drug Abuse Patient Records regulations: The Federal rules restrict any use of the information to criminally investigate or prosecute any alcohol or drug abuse patient.[facility] HospitalIn the event this information is protected by the Federal Confidentiality of Alcohol and Drug Abuse Patient Records regulations: The Federal rules restrict any use of the information to criminally investigate or prosecute any alcohol or drug abuse patient.[facility] HospitalIn the event this information is protected by the Federal Confidentiality of Alcohol and Drug Abuse Patient Records regulations: The Federal rules restrict any use of the information to criminally investigate or prosecute any alcohol or drug abuse patient.[facility] HospitalIn the event this information is protected by the Federal Confidentiality of Alcohol and Drug Abuse Patient Records regulations: The Federal rules restrict any use of the information to criminally investigate or prosecute any alcohol or drug abuse patient.[facility] HospitalIn the event this information is protected by the Federal Confidentiality of Alcohol and Drug Abuse Patient Records regulations: The Federal rules restrict any use of the information to criminally investigate or prosecute any alcohol or drug abuse patient.[facility] HospitalIn the event this information is protected by the Federal Confidentiality of Alcohol and Drug Abuse Patient Records regulations: The Federal rules restrict any use of the information to criminally investigate or prosecute any alcohol or drug abuse patient.[facility] HospitalIn the event this information is protected by the Federal Confidentiality of Alcohol and Drug Abuse Patient Records regulations: The Federal rules restrict any use of the information to criminally investigate or prosecute any alcohol or drug abuse patient.[facility] HospitalIn the event this information is protected by the Federal Confidentiality of Alcohol and Drug Abuse Patient Records regulations: The Federal rules restrict any use of the information to criminally investigate or prosecute any alcohol or drug abuse patient.[facility] HospitalIn the event this information is protected by the Federal Confidentiality of Alcohol and Drug Abuse Patient Records regulations: The Federal rules restrict any use of the information to criminally investigate or prosecute any alcohol or drug abuse patient.[facility] HospitalIn the event this information is protected by the Federal Confidentiality of Alcohol and Drug Abuse Patient Records regulations: The Federal rules restrict any use of the information to criminally investigate or prosecute any alcohol or drug abuse patient.[facility] HospitalIn the event this information is protected by the Federal Confidentiality of Alcohol and Drug Abuse Patient Records regulations: The Federal rules restrict any use of the information to criminally investigate or prosecute any alcohol or drug abuse patient.[facility] HospitalIn the event this information is protected by the Federal Confidentiality of Alcohol and Drug Abuse Patient Records regulations: The Federal rules restrict any use of the information to criminally investigate or prosecute any alcohol or drug abuse patient.[facility] HospitalIn the event this information is protected by the Federal Confidentiality of Alcohol and Drug Abuse Patient Records regulations: The Federal rules restrict any use of the information to criminally investigate or prosecute any alcohol or drug abuse patient.[facility] HospitalIn the event this information is protected by the Federal Confidentiality of Alcohol and Drug Abuse Patient Records regulations: The Federal rules restrict any use of the information to criminally investigate or prosecute any alcohol or drug abuse patient.[facility] HospitalIn the event this information is protected by the Federal Confidentiality of Alcohol and Drug Abuse Patient Records regulations: The Federal rules restrict any use of the information to criminally investigate or prosecute any alcohol or drug abuse patient.[facility] HospitalIn the event this information is protected by the Federal Confidentiality of Alcohol and Drug Abuse Patient Records regulations: The Federal rules restrict any use of the information to criminally investigate or prosecute any alcohol or drug abuse patient.[facility] HospitalIn the event this information is protected by the Federal Confidentiality of Alcohol and Drug Abuse Patient Records regulations: The Federal rules restrict any use of the information to criminally investigate or prosecute any alcohol or drug abuse patient.[facility] HospitalIn the event this information is protected by the Federal Confidentiality of Alcohol and Drug Abuse Patient Records regulations: The Federal rules restrict any use of the information to criminally investigate or prosecute any alcohol or drug abuse patient.[facility] HospitalIn the event this information is protected by the Federal Confidentiality of Alcohol and Drug Abuse Patient Records regulations: The Federal rules restrict any use of the information to criminally investigate or prosecute any alcohol or drug abuse patient.[facility] HospitalIn the event this information is protected by the Federal Confidentiality of Alcohol and Drug Abuse Patient Records regulations: The Federal rules restrict any use of the information to criminally investigate or prosecute any alcohol or drug abuse patient.[facility] HospitalIn the event this information is protected by the Federal Confidentiality of Alcohol and Drug Abuse Patient Records regulations: The Federal rules restrict any use of the information to criminally investigate or prosecute any alcohol or drug abuse patient.[facility] HospitalIn the event this information is protected [...] or prosecute any alcohol or drug abuse patient.[facility] HospitalIn the event this information is protected by the Federal Confidentiality of Alcohol and Drug Abuse Patient Records regulations: The Federal rules restrict any use of the information to criminally investigate or prosecute any alcohol or drug abuse patient.[facility] HospitalIn the event this information is protected by the Federal Confidentiality of Alcohol and Drug Abuse Patient Records regulations: The Federal rules restrict any use of the information to criminally investigate or prosecute any alcohol or drug abuse patient.[facility] HospitalIn the event this information is protected by the Federal Confidentiality of Alcohol and Drug Abuse Patient Records regulations: The Federal rules restrict any use of the information to criminally investigate or prosecute any alcohol or drug abuse patient.[facility] HospitalIn the event this information is protected by the Federal Confidentiality of Alcohol and Drug Abuse Patient Records regulations: The Federal rules restrict any use of the information to criminally investigate or prosecute any alcohol or drug abuse patient.[facility] HospitalIn the event this information is protected by the Federal Confidentiality of Alcohol and Drug Abuse Patient Records regulations: The Federal rules restrict any use of the information to criminally investigate or prosecute any alcohol or drug abuse patient.[facility] HospitalIn the event this information is protected by the Federal Confidentiality of Alcohol and Drug Abuse Patient Records regulations: The Federal rules restrict any use of the information to criminally investigate or prosecute any alcohol or drug abuse patient.[facility] HospitalIn the event this information is protected by the Federal Confidentiality of Alcohol and Drug Abuse Patient Records regulations: The Federal rules restrict any use of the information to criminally investigate or prosecute any alcohol or drug abuse patient.[facility] HospitalIn the event this information is protected by the Federal Confidentiality of Alcohol and Drug Abuse Patient Records regulations: The Federal rules restrict any use of the information to criminally investigate or prosecute any alcohol or drug abuse patient.[facility] HospitalIn the event this information is protected by the Federal Confidentiality of Alcohol and Drug Abuse Patient Records regulations: The Federal rules restrict any use of the information to criminally investigate or prosecute any alcohol or drug abuse patient.[facility] HospitalIn the event this information is protected by the Federal Confidentiality of Alcohol and Drug Abuse Patient Records regulations: The Federal rules restrict any use of the information to criminally investigate or prosecute any alcohol or drug abuse patient.[facility] HospitalIn the event this information is protected by the Federal Confidentiality of Alcohol and Drug Abuse Patient Records regulations: The Federal rules restrict any use of the information to criminally investigate or prosecute any alcohol or drug abuse patient.[facility] HospitalIn the event this information is protected by the Federal Confidentiality of Alcohol and Drug Abuse Patient Records regulations: The Federal rules restrict any use of the information to criminally investigate or prosecute any alcohol or drug abuse patient.[facility] HospitalIn the event this information is protected by the Federal Confidentiality of Alcohol and Drug Abuse Patient Records regulations: The Federal rules restrict any use of the information to criminally investigate or prosecute any alcohol or drug abuse patient.[facility] HospitalIn the event this information is protected by the Federal Confidentiality of Alcohol and Drug Abuse Patient Records regulations: The Federal rules restrict any use of the information to criminally investigate or prosecute any alcohol or drug abuse patient.[facility] HospitalIn the event this information is protected by the Federal Confidentiality of Alcohol and Drug Abuse Patient Records regulations: The Federal rules restrict any use of the information to criminally investigate or prosecute any alcohol or drug abuse patient.[facility] HospitalIn the event this information is protected by the Federal Confidentiality of Alcohol and Drug Abuse Patient Records regulations: The Federal rules restrict any use of the information to criminally investigate or prosecute any alcohol or drug abuse patient.[facility] HospitalIn the event this information is protected by the Federal Confidentiality of Alcohol and Drug Abuse Patient Records regulations: The Federal rules restrict any use of the information to criminally investigate or prosecute any alcohol or drug abuse patient.[facility] HospitalIn the event this information is protected by the Federal Confidentiality of Alcohol and Drug Abuse Patient Records regulations: The Federal rules restrict any use of the information to criminally investigate or prosecute any alcohol or drug abuse patient.[facility] HospitalIn the event this information is protected by the Federal Confidentiality of Alcohol and Drug Abuse Patient Records regulations: The Federal rules restrict any use of the information to criminally investigate or prosecute any alcohol or drug abuse patient.[facility] HospitalIn the event this information is protected by the Federal Confidentiality of Alcohol and Drug Abuse Patient Records regulations: The Federal rules restrict any use of the information to criminally investigate or prosecute any alcohol or drug abuse patient.[facility] HospitalIn the event this information is protected by the Federal Confidentiality of Alcohol and Drug Abuse Patient Records regulations: The Federal rules restrict any use of the information to criminally investigate or prosecute any alcohol or drug abuse patient.[facility] HospitalIn the event this information is protected by the Federal Confidentiality of Alcohol and Drug Abuse Patient Records regulations: The Federal rules restrict any use of the information to criminally investigate or prosecute any alcohol or drug abuse patient.[facility] HospitalIn the event this information is protected by the Federal Confidentiality of Alcohol and Drug Abuse Patient Records regulations: The Federal rules restrict any use of the information to criminally investigate or prosecute any alcohol or drug abuse patient.[facility] HospitalIn the event this information is protected by the Federal Confidentiality of Alcohol and Drug Abuse Patient Records regulations: The Federal rules restrict any use of the information to criminally investigate or prosecute any alcohol or drug abuse patient.[facility] HospitalIn the event this information is protected by the Federal Confidentiality of Alcohol and Drug Abuse Patient Records regulations: The Federal rules restrict any use of the information to criminally investigate or prosecute any alcohol or drug abuse patient.[facility] HospitalIn the event this information is protected by the Federal Confidentiality of Alcohol and Drug Abuse Patient Records regulations: The Federal rules restrict any use of the information to criminally investigate or prosecute any alcohol or drug abuse patient.[facility] HospitalIn the event this information is protected by the Federal Confidentiality of Alcohol and Drug Abuse Patient Records regulations: The Federal rules restrict any use of the information to criminally investigate or prosecute any alcohol or drug abuse patient.[facility] HospitalIn the event this information is protected by the Federal Confidentiality of Alcohol and Drug Abuse Patient Records regulations: The Federal rules restrict any use of the information to criminally investigate or prosecute any alcohol or drug abuse patient.[facility] HospitalIn the event this information is protected by the Federal Confidentiality of Alcohol and Drug Abuse Patient Records regulations: The Federal rules restrict any use of the information to criminally investigate or prosecute any alcohol or drug abuse patient.[facility] HospitalIn the event this information is protected by the Federal Confidentiality of Alcohol and Drug Abuse Patient Records regulations: The Federal rules restrict any use of the information to criminally investigate or prosecute any alcohol or drug abuse patient.[facility] HospitalIn the event this information is protected by the Federal Confidentiality of Alcohol and Drug Abuse Patient Records regulations: The Federal rules restrict any use of the information to criminally investigate or prosecute any alcohol or drug abuse patient.[facility] HospitalIn the event this information is protected by the Federal Confidentiality of Alcohol and Drug Abuse Patient Records regulations: The Federal rules restrict any use of the information to criminally investigate or prosecute any alcohol or drug abuse patient.[facility] HospitalIn the event this information is protected by the Federal Confidentiality of Alcohol and Drug Abuse Patient Records regulations: The Federal rules restrict any use of the information to criminally investigate or prosecute any alcohol or drug abuse patient.[facility] HospitalIn the event this information is protected by the Federal Confidentiality of Alcohol and Drug Abuse Patient Records regulations: The Federal rules restrict any use of the information to criminally investigate or prosecute any alcohol or drug abuse patient.[facility] HospitalIn the event this information is protected by the Federal Confidentiality of Alcohol and Drug Abuse Patient Records regulations: The Federal rules restrict any use of the information to criminally investigate or prosecute any alcohol or drug abuse patient.[facility] HospitalIn the event this information is protected by the Federal Confidentiality of Alcohol and Drug Abuse Patient Records regulations: The Federal rules restrict any use of the information to criminally investigate or prosecute any alcohol or drug abuse patient.[facility] HospitalIn the event this information is protected by the Federal Confidentiality of Alcohol and Drug Abuse Patient Records regulations: The Federal rules restrict any use of the information to criminally investigate or prosecute any alcohol or drug abuse patient.[facility] HospitalIn the event this information is protected by the Federal Confidentiality of Alcohol and Drug Abuse Patient Records regulations: The Federal rules restrict any use of the information to criminally investigate or prosecute any alcohol or drug abuse patient.[facility] HospitalIn the event this information is protected by the Federal Confidentiality of Alcohol and Drug Abuse Patient Records regulations: The Federal rules restrict any use of the information to criminally investigate or prosecute any alcohol or drug abuse patient.[facility] HospitalIn the event this information is protected by the Federal Confidentiality of Alcohol and Drug Abuse Patient Records regulations: The Federal rules restrict any use of the information to criminally investigate or prosecute any alcohol or drug abuse patient.[facility] HospitalIn the event this information is protected by the Federal Confidentiality of Alcohol and Drug Abuse Patient Records regulations: The Federal rules restrict any use of the information to criminally investigate or prosecute any alcohol or drug abuse patient.[facility] HospitalIn the event this information is protected by the Federal Confidentiality of Alcohol and Drug Abuse Patient Records regulations: The Federal rules restrict any use of the information to criminally investigate or prosecute any alcohol or drug abuse patient.[facility] HospitalIn the event this information is protected by the Federal Confidentiality of Alcohol and Drug Abuse Patient Records regulations: The Federal rules restrict any use of the information to criminally investigate or prosecute any alcohol or drug abuse patient.[facility] HospitalIn the event this information is protected by the Federal Confidentiality of Alcohol and Drug Abuse Patient Records regulations: The Federal rules restrict any use of the information to criminally investigate or prosecute any alcohol or drug abuse patient.[facility] HospitalIn the event this information is protected by the Federal Confidentiality of Alcohol and Drug Abuse Patient Records regulations: The Federal rules restrict any use of the information to criminally investigate or prosecute any alcohol or drug abuse patient.[facility] HospitalIn the event this information is protected by the Federal Confidentiality of Alcohol and Drug Abuse Patient Records regulations: The Federal rules restrict any use of the information to criminally investigate or prosecute any alcohol or drug abuse patient.[facility] HospitalIn the event this information is protected by the Federal Confidentiality of Alcohol and Drug Abuse Patient Records regulations: The Federal rules restrict any use of the information to criminally investigate or prosecute any alcohol or drug abuse patient.[facility] HospitalIn the event this information is protected by the Federal Confidentiality of Alcohol and Drug Abuse Patient Records regulations: The Federal rules restrict any use of the information to criminally investigate or prosecute any alcohol or drug abuse patient.[facility] HospitalIn the event this information is protected [...] or prosecute any alcohol or drug abuse patient.[facility] HospitalIn the event this information is protected by the Federal Confidentiality of Alcohol and Drug Abuse Patient Records regulations: The Federal rules restrict any use of the information to criminally investigate or prosecute any alcohol or drug abuse patient.[facility] HospitalIn the event this information is protected by the Federal Confidentiality of Alcohol and Drug Abuse Patient Records regulations: The Federal rules restrict any use of the information to criminally investigate or prosecute any alcohol or drug abuse patient.[facility] HospitalIn the event this information is protected by the Federal Confidentiality of Alcohol and Drug Abuse Patient Records regulations: The Federal rules restrict any use of the information to criminally investigate or prosecute any alcohol or drug abuse patient.[facility] HospitalIn the event this information is protected by the Federal Confidentiality of Alcohol and Drug Abuse Patient Records regulations: The Federal rules restrict any use of the information to criminally investigate or prosecute any alcohol or drug abuse patient.[facility] HospitalIn the event this information is protected by the Federal Confidentiality of Alcohol and Drug Abuse Patient Records regulations: The Federal rules restrict any use of the information to criminally investigate or prosecute any alcohol or drug abuse patient.[facility] HospitalIn the event this information is protected by the Federal Confidentiality of Alcohol and Drug Abuse Patient Records regulations: The Federal rules restrict any use of the information to criminally investigate or prosecute any alcohol or drug abuse patient.[facility] HospitalIn the event this information is protected by the Federal Confidentiality of Alcohol and Drug Abuse Patient Records regulations: The Federal rules restrict any use of the information to criminally investigate or prosecute any alcohol or drug abuse patient.[facility] HospitalIn the event this information is protected by the Federal Confidentiality of Alcohol and Drug Abuse Patient Records regulations: The Federal rules restrict any use of the information to criminally investigate or prosecute any alcohol or drug abuse patient.[facility] HospitalIn the event this information is protected by the Federal Confidentiality of Alcohol and Drug Abuse Patient Records regulations: The Federal rules restrict any use of the information to criminally investigate or prosecute any alcohol or drug abuse patient.[facility] HospitalIn the event this information is protected by the Federal Confidentiality of Alcohol and Drug Abuse Patient Records regulations: The Federal rules restrict any use of the information to criminally investigate or prosecute any alcohol or drug abuse patient.[facility] HospitalIn the event this information is protected by the Federal Confidentiality of Alcohol and Drug Abuse Patient Records regulations: The Federal rules restrict any use of the information to criminally investigate or prosecute any alcohol or drug abuse patient.[facility] HospitalIn the event this information is protected by the Federal Confidentiality of Alcohol and Drug Abuse Patient Records regulations: The Federal rules restrict any use of the information to criminally investigate or prosecute any alcohol or drug abuse patient.[facility] HospitalIn the event this information is protected by the Federal Confidentiality of Alcohol and Drug Abuse Patient Records regulations: The Federal rules restrict any use of the information to criminally investigate or prosecute any alcohol or drug abuse patient.[facility] HospitalIn the event this information is protected by the Federal Confidentiality of Alcohol and Drug Abuse Patient Records regulations: The Federal rules restrict any use of the information to criminally investigate or prosecute any alcohol or drug abuse patient.[facility] HospitalIn the event this information is protected by the Federal Confidentiality of Alcohol and Drug Abuse Patient Records regulations: The Federal rules restrict any use of the information to criminally investigate or prosecute any alcohol or drug abuse patient.[facility] HospitalIn the event this information is protected by the Federal Confidentiality of Alcohol and Drug Abuse Patient Records regulations: The Federal rules restrict any use of the information to criminally investigate or prosecute any alcohol or drug abuse patient.[facility] HospitalIn the event this information is protected by the Federal Confidentiality of Alcohol and Drug Abuse Patient Records regulations: The Federal rules restrict any use of the information to criminally investigate or prosecute any alcohol or drug abuse patient.[facility] HospitalIn the event this information is protected by the Federal Confidentiality of Alcohol and Drug Abuse Patient Records regulations: The Federal rules restrict any use of the information to criminally investigate or prosecute any alcohol or drug abuse patient.[facility] HospitalIn the event this information is protected by the Federal Confidentiality of Alcohol and Drug Abuse Patient Records regulations: The Federal rules restrict any use of the information to criminally investigate or prosecute any alcohol or drug abuse patient.[facility] Reason for Visit (unrecogniz ed section and content) Reason Comments Procedure Specialty Diagnoses / Procedures Referred By Contac t Referred To Contact Pain Management / PAIN MANAGEMENT Diagnoses Primary osteoarthritis, right shoulder Primary osteoarthritis, left shoulder Suprascapular Nerve Block with steroid infiltration under ultrasound guidance LEFT-SIDED, 81mg apsrin Procedures INJECTION AA&/STRD SUPRASCAPULAR NERVE PROCEDURE 20 Roque Delgado MD [address] [address] Roque Delgado MD [address] [address] Referral ID Status Reason Start Date Expiration Date Visits Re quested Visits Authorized [id number] Closed 04/06/2023 04/05/2024 1 1 Reason Comments Physical Therapy Specialty Diagnoses / Procedures Referred By Contac t Referred To Contact Physical Therapy / PHYSICAL THERAPY Diagnoses Lumbar spondylosis Thoracic spine pain Myofascial pain Procedures CONSULT TO PHYSICAL THERAPY Avis Marrufo, NAILER OPERATOR.ACCOUNTANT [address] [place] [address] Pt [facility] [address] [place] [address] Referral ID Status Reason Start Date Expiration Date V isits Requested Visits Authorized [id number] Authorized 04/06/2021 04/05/2022 99 99 Reason Comments PT Eval Reason Comments PT Discharge Reason Comments Recheck Reason Comments Results Reason Comments Radiology CT Specialty Diagnoses / Procedures Referred By Contac t Referred To Contact CT IMAGING Diagnoses Left upper quadrant abdominal pain Procedures CT ABD/PEL WO IVCON CT ABD & PELVIS W/O CONTRAST Lizy Capone MD [address] [place] [address] Ct Imaging Referral ID Status Reason Start Date Expiration Date V isits Requested Visits Authorized [id number] Closed Auto-Generate d Referral 07/18/2021 08/17/2022 1 [...] ADDITIONAL VERTEBRA [address] [place] [address] Referral ID Status Reason Start Date Expiration Date Visits Re quested Visits Authorized [id number] 1 1 Reason Comments Follow Up Reason Comments Acute Visit bilat leg swelling Reason Comments Faxed Referral Referral ID Status Reason Start Date Expiration Date Visits Re quested Visits Authorized [id number] 1 1 Reason Comments Results Labs Reason [...] NEW HIGH MDM 60-74 MINUTES Miryam Orozco APRN.ACCOUNTANT [address] [place] [address] Referral ID Status Reason Start Date Expiration Date V isits Requested Visits Authorized [id number] Closed PCP Requested Referral 04/21/2022 04/21/2023 1 [...] LUMBAR W/O CONTRAST MATERIAL Avis Marrufo M, NAILER OPERATOR.ACCOUNTANT [address] [place] [address] [place] [address] Referral ID Status Reason Start Date Expiration Date V isits Requested Visits Authorized [id number] Closed Auto-Generate d Referral 04/03/2022 05/03/2023 1 [...] PROCEDURE 20 Roque Delgado MD [address] [address] Roque Delgado MD [address] [address] Referral ID Status Reason Start Date Expiration Date Visits Re quested Visits Authorized [id number] Closed 02/16/2023 05/17/2023 1 1 Reason Comments [...] OTHER PERIPHERAL NERVE PROCEDURE 20 BenjaminYasmanimuna Pradhan, NAILER OPERATOR.ACCOUNTANT [address] [place] [address] Roque Delgado MD [address] [address] Referral ID Status Reason Start Date Expiration Date V isits Requested Visits Authorized [id number] Pending Review 07/15/2023 10/13/2023 1 1 Reason [...] PROCEDURE 30 Keyana Greenberg PA-C [address] [address] Roque Delgado MD [address] [address] Referral ID Status Reason Start Date Expiration Date V isits Requested Visits Authorized [id number] New Request 11/16/2023 02/14/2024 1 1 Reason Comments Discussion Reason Comments Follow Up RFA - no relief at a ll Pain (Shoulder Pain) Bilateral - right i s worse Knee Pain Bilateral - left is worse Reason Comments 6 Month Exam Reason Comments medical clearance form [facility] fo r shoulder surgery Reason Onset Date [...] Care Teams (unrecognized sec tion and content) Collar Closer Lockstitch Relationship Specialty Start Date End Date Lizy Capone MD [address] [facility] [address] PCP - General 11/15/08 Collar Closer Lockstitch Relationship Specialty Start Date End Date Lizy Capone MD [address] [facility] [address] PCP - General 11/15/08 Collar Closer Lockstitch Relationship Specialty Start Date End Date Lizy Capone MD [address] [facility] [address] PCP - General 11/15/08 Collar Closer Lockstitch Relationship Specialty Start Date End Date Lizy Capone MD [address] [facility] [address] PCP - General 11/15/08 Collar Closer Lockstitch Relationship Specialty Start Date End Date Lizy Capone MD [address] [facility] [address] PCP - General 11/15/08 Collar Closer Lockstitch Relationship Specialty Start Date End Date Lizy Capone MD [address] [facility] [address] PCP - General 11/15/08 Collar Closer Lockstitch Relationship Specialty Start Date End Date Lizy Capone MD [address] [facility] [address] PCP - General 11/15/08 Collar Closer Lockstitch Relationship Specialty Start Date End Date Lizy Capone MD [address] [place] [address] PCP - General 11/15/08 Collar Closer Lockstitch Relationship Specialty Start Date End Date Lizy Capone MD [address] [place] [address] PCP - General 11/15/08 Collar Closer Lockstitch Relationship Specialty Start Date End Date Lizy Capone MD [address] [facility] [address] PCP - General 11/15/08 Collar Closer Lockstitch Relationship Specialty Start Date End Date Lizy Capone MD [address] [facility] [address] PCP - General 11/15/08 Collar Closer Lockstitch Relationship Specialty Start Date End Date Lizy Capone MD [address] [facility] [address] PCP - General 11/15/08 Collar Closer Lockstitch Relationship Specialty Start Date End Date Lizy Capone MD [address] [place] [address] PCP - General 11/15/08 Collar Closer Lockstitch Relationship Specialty Start Date End Date Lizy Capone MD [address] [place] [address] PCP - General 11/15/08 Collar Closer Lockstitch Relationship Specialty Start Date End Date Lizy Capone MD [address] [place] [address] PCP - General 11/15/08 Collar Closer Lockstitch Relationship Specialty Start Date End Date Lizy Capone MD [address] [place] [address] PCP - General 11/15/08 Collar Closer Lockstitch Relationship Specialty Start Date End Date Lizy Capone MD [address] [place] [address] PCP - General 11/15/08 Collar Closer Lockstitch Relationship Specialty Start Date End Date Lizy Capone MD [address] [place] [address] PCP - General 11/15/08 Collar Closer Lockstitch Relationship Specialty Start Date End Date Lizy Capone MD [address] [place] [address] PCP - General 11/15/08 Collar Closer Lockstitch Relationship Specialty Start Date End Date Lizy Capone MD [address] [place] [address] PCP - General 11/15/08 Collar Closer Lockstitch Relationship Specialty Start Date End Date Lizy Capone MD [address] [place] [address] PCP - General 11/15/08 Collar Closer Lockstitch Relationship Specialty Start Date End Date Lizy Capone MD [address] [place] [address] PCP - General 11/15/08 Collar Closer Lockstitch Relationship Specialty Start Date End Date Lizy Capone MD [address] [place] [address] PCP - General 11/15/08 Collar Closer Lockstitch Relationship Specialty Start Date End Date Lizy Capone MD [address] [place] [address] PCP - General 11/15/08 Collar Closer Lockstitch Relationship Specialty Start Date End Date Lizy Capone MD [address] [place] [address] PCP - General 11/15/08 Collar Closer Lockstitch Relationship Specialty Start Date End Date Lizy Capone MD [address] [place] [address] PCP - General 11/15/08 Collar Closer Lockstitch Relationship Specialty Start Date End Date Lizy Capone MD [address] [place] [address] PCP - General 11/15/08 Collar Closer Lockstitch Relationship Specialty Start Date End Date Lizy Capone MD [address] [place] [address] PCP - General 11/15/08 Collar Closer Lockstitch Relationship Specialty Start Date End Date Lizy Capone MD [address] [place] [address] PCP - General 11/15/08 Team Status: Active [...] Dr. Kesha Acosta DO Attending Provider Active Collar Closer Lockstitch Relationship Specialty Start Date End Date Lizy Capone MD [address] [place] [address] PCP - General 11/15/08 Team Status: Inactive Member Role Status Dates Dr. Lizy Capone MD Primary Care Provider Active Dr. Kesha Acosta DO Attending Provider, Referring P rovider Active Collar Closer Lockstitch Relationship Specialty Start Date End Date Lizy Capone MD [address] [place] [address] PCP - General 11/15/08 Collar Closer Lockstitch Relationship Specialty Start Date End Date Lizy Capone MD [address] [place] [address] PCP - General 11/15/08 Team Status: Active Member Role Status Dates Dr. Lizy Capone MD Primary Care Provider Active Dr. Norberto Jackson MD Other Provider Active Jas Bethea ORTHODONTIC BAND MAKER, ORTHODONTIC BAND MAKER-C Attending Provider Active Team Status: Active Member Role Status Dates Dr. Lizy Capone MD Primary Care Provider Active Dr. Norberto Jackson MD Other Provider Active Maria Teresa Olivo ORTHODONTIC BAND MAKER, ORTHODONTIC BAND MAKER-C Attending Provider Active Team Status: Inactive Member Role Status Dates Dr. Lizy Capone MD Primary Care Provider Active Dr. Norberto Jackson MD Attending Provider, Referring Pro vider Active Collar Closer Lockstitch Relationship Specialty Start Date End Date Lizy Capone MD [address] [place] [address] PCP - General 11/15/08 Collar Closer Lockstitch Relationship Specialty Start Date End Date Lizy Capone MD [address] [place] [address] PCP - General 11/15/08 Collar Closer Lockstitch Relationship Specialty Start Date End Date Lizy Capone MD [address] [place] [address] PCP - General 11/15/08 Team Status: Inactive Member Role Status Dates Dr. Lizy Capone MD Primary Care Provider Active Dr. Gautam Hardy MD Attending Provider Active Collar Closer Lockstitch Relationship Specialty Start Date End Date Lizy Capone MD [address] [place] [address] PCP - General 11/15/08 Collar Closer Lockstitch Relationship Specialty Start Date End Date Lizy Capone MD [address] [place] [address] PCP - General 11/15/08 Collar Closer Lockstitch Relationship Specialty Start Date End Date Lizy Capone MD [address] [place] [address] PCP - General 11/15/08 Collar Closer Lockstitch Relationship Specialty Start Date End Date Lizy Capone MD [address] [place] [address] PCP - General 11/15/08 Collar Closer Lockstitch Relationship Specialty Start Date End Date Lizy Capone MD [address] [place] [address] PCP - General 11/15/08 Collar Closer Lockstitch Relationship Specialty Start Date End Date Lizy Capone MD [address] [place] [address] PCP - General 11/15/08 Collar Closer Lockstitch Relationship Specialty Start Date End Date Lizy Capone MD [address] [place] [address] PCP - General 11/15/08 Collar Closer Lockstitch Relationship Specialty Start Date End Date Lizy Capone MD [address] [place] [address] PCP - General 11/15/08 Collar Closer Lockstitch Relationship Specialty Start Date End Date Lizy Capone MD [address] [place] [address] PCP - General 11/15/08 Collar Closer Lockstitch Relationship Specialty Start Date End Date Lizy Capone MD [address] [place] [address] PCP - General 11/15/08 Collar Closer Lockstitch Relationship Specialty Start Date End Date Lizy Capone MD [address] [place] [address] PCP - General 11/15/08 Collar Closer Lockstitch Relationship Specialty Start Date End Date Lizy Capone MD [address] [place] [address] PCP - General 11/15/08 Collar Closer Lockstitch Relationship Specialty Start Date End Date Lizy Capone MD [address] [place] [address] PCP - General 11/15/08 Team Status: Active [...] Dr. Ralph Haynes MD Attending Provider Active Collar Closer Lockstitch Relationship Specialty Start Date End Date Lizy Capone MD [address] [place] [address] PCP - General 11/15/08 Collar Closer Lockstitch Relationship Specialty Start Date End Date Lizy Capone MD [address] [place] [address] PCP - General 11/15/08 Collar Closer Lockstitch Relationship Specialty Start Date End Date Lizy Capone MD [address] [place] [address] PCP - General 11/15/08 Collar Closer Lockstitch Relationship Specialty Start Date End Date Lizy Capone MD [address] [place] [address] PCP - General 11/15/08 Collar Closer Lockstitch Relationship Specialty Start Date End Date Lizy Capone MD [address] [place] [address] PCP - General 11/15/08 Collar Closer Lockstitch Relationship Specialty Start Date End Date Lizy Capone MD [address] [place] [address] PCP - General 11/15/08 Collar Closer Lockstitch Relationship Specialty Start Date End Date Lizy Capone MD [address] [place] [address] PCP - General 11/15/08 Collar Closer Lockstitch Relationship Specialty Start Date End Date Lizy Capone MD [address] [place] [address] PCP - General 11/15/08 Collar Closer Lockstitch Relationship Specialty Start Date End Date Lizy Capone MD [address] [place] [address] PCP - General 11/15/08 Collar Closer Lockstitch Relationship Specialty Start Date End Date Lizy Capone MD [address] [place] [address] PCP - General 11/15/08 Collar Closer Lockstitch Relationship Specialty Start Date End Date Lizy Capone MD [address] [place] [address] PCP - General 11/15/08 Collar Closer Lockstitch Relationship Specialty Start Date End Date Lizy Capone MD [address] [place] [address] PCP - General 11/15/08 Collar Closer Lockstitch Relationship Specialty Start Date End Date Lizy Capone MD [address] [place] [address] PCP - General 11/15/08 Collar Closer Lockstitch Relationship Specialty Start Date End Date Lizy Capone MD [address] [place] [address] PCP - General 11/15/08 Collar Closer Lockstitch Relationship Specialty Start Date End Date Lizy Capone MD [address] [place] [address] PCP - General 11/15/08 Miryam Orozco, NAILER OPERATOR.ACCOUNTANT [address] [place] [address] Transition Assistant Family Medicine 03/13/24 Mulugeta Jennings APRN.ACCOUNTANT [address] [place] [address] Transition Assistant Family Medicine 03/22/24 Collar Closer Lockstitch Relationship Specialty Start Date End Date Miryam Oorzco FNP [address] [place] [address] PCP - General Family Medicine 05/04/24 Norberto Jackson MD [address] [place] [address] Cardiovascular Disease 05/05/24 Collar Closer Lockstitch Relationship Specialty Start Date End Date Lizy Capone MD [address] [place], [place] [address] PCP - General 11/15/08 Miryam Orozco APRN.ACCOUNTANT [address] [place], [place] [address] Transition Assistant Family Medicine 03/13/24 Mulugeta Jennings APRN.ACCOUNTANT [address] [place], [place] [address] Transition Assistant Family Medicine 03/22/24 Team Status: Inactive Member [...] 2024 End: May 04, 2024 Dr. Ayad Burno MD Other Provider Active Start : May 01, 2024 End: May 04, 2024 Dr. Kin Young MD Other Provider Active Start: May 01, 2024 End: May 04, 2024 Dr. Anthony Anderson MD [...] Provider Active Start: May 04, 2024 Dr. Sundya Carlos MD Other Provider Active Start: May [...] Member Role Status Dates Miryam Tannhof , ORTHODONTIC BAND MAKER-C Primary Care Provider Active Start: May 23, 2024 Dr. Mari Mehta DO Admit Provider Active Start: May Dr. Mari Mehta DO Attending Provider Active Start: May Dr. Mari Mehta DO Other Provider Active Start: May Team Status: Active Member Role Status Dates Miryam Orozco ORTHODONTIC BAND MAKER-C Primary Care Provider Active Start: May 26, 2024 Dr. Mari Mehta DO Admit Provider Active Start: May Dr. Mari Mehta DO Attending Provider Active Start: May Dr. Mari Mehta DO Other Provider Active Start: May Team Status: Active Member Role Status Dates Miryam Orozco ORTHODONTIC BAND MAKER-C Primary Care Provider Active Start: May 27, [...] Active Member Role Status Dates Miryam Orozco ORTHODONTIC BAND MAKER-C Primary Care Provider Active Start: June 02, [...] Status: Active Member Role Status Dates Miryam Orozoc NP-C Primary Care Provider Active Start: June 13, 2024 Gustavo MANZO MD Attending Provider Active Start: June 13, 2024 Team Status: Active Member Role Status Dates Miryam Orozco ORTHODONTIC BAND MAKER-C Primary Care Provider Active Start: June 20, 2024 Gustavo MANZO MD Attending Provider Active Start: June 20, 2024 Team Status: Active Member Role Status Dates Miryam Orozco ORTHODONTIC BAND MAKER-C Primary Care Provider Active Start: June 27, 2024 Gustavo MANZO MD Attending Provider Active Start: June 27, 2024 Team Status: Active Member Role Status Dates Miryam Orozco ORTHODONTIC BAND MAKER-C Primary Care Provider Active Start: July 04, 2024 Gustavo MANZO MD Attending Provider Active Start: July 04, 2024 Team Status: Active Member Role Status Dates Miryam Orozco ORTHODONTIC BAND MAKER-C Primary Care Provider Active Start: July 11, 2024 Gustavo MANZO MD Attending Provider Active Start: July 11, 2024 Team Status: Active Member Role Status Dates Miryam Orozco ORTHODONTIC BAND MAKER-C Primary Care Provider Active Team Status: Inactive Member Role Status Dates Miryam Orozco ORTHODONTIC BAND MAKER-C Primary Care Provider Active Start: June 13, 2024 End: June 13, 2024 Minna Villarreal NP, ORTHODONTIC BAND MAKER-C Attending Provider Active Start: June 13, 2024 End: June 13, 2024 Team Status: Inactive Member Role Status Dates Miryam Orozco , ORTHODONTIC BAND MAKER-C Primary Care Provider Active Start: June 14, 2024 End: June 14, 2024 Dr. Gustavo Castorena MD Attending Provider Active Start: June 14, 2024 End: June 14, 2024 Team Status: Inactive Member Role Status Dates Miryam Orozco ORTHODONTIC BAND MAKER-C Primary Care Provider Active Start: June 22, 2024 End: June 22, 2024 Minna Villarreal NP, ORTHODONTIC BAND MAKER-C Attending Provider Active Start: June 22, 2024 End: June 22, 2024 Team Status: Active Member Role Status Dates Miryam Orozco ORTHODONTIC BAND MAKER-C Primary Care Provider Active Start: July 11, [...] July 29, 2024 End: July 29, 2024 Collar Closer Lockstitch Relationship Specialty Start Date End Date Lizy Capone MD [address] [place], [place] [address] PCP - General 11/15/08 Mulugeta Jennings APRN.ACCOUNTANT [address] [place], [place] [address] [phone] [facility] 03/22/24 Collar Closer Lockstitch Relationship Specialty Start Date End Date Lizy Capone MD [address] [place], [place] [address] [phone] PCP - General 11/15/08 Mulugeta Jennings APRN.ACCOUNTANT [address] [place] [address] [facility] 03/22/24 Team Status: Inactive Member Role Status [...] Member Role Status Dates Miryam Tannhof , ORTHODONTIC BAND MAKER-C Primary Care Provider Active Start: August 01, 2024 Gustavo MANZO MD Attending Provider Active Start: August 01, 2024 Gustavo MANZO MD Referring Provider Active Start: August 01, 2024 Team Status: Active Member Role Status Dates Miryampoonam Orozco ORTHODONTIC BAND MAKER-C Primary Care Provider Active Start: August 08, 2024 Gustavo MANZO MD Attending Provider Active Start: August 08, 2024 Team Status: Inactive Member Role Status Dates Miryam Orozco ORTHODONTIC BAND MAKER-C Primary Care Provider Active Start: August 12, 2024 End: August 12, 2024 Miryam Orozco ORTHODONTIC BAND MAKER-C Referring Provider Active Start: August 12, 2024 End: August 12, 2024 Dr. Gonzalo Lomax MD Attending Provider Active Start: August 12, 2024 End: August 12, 2024 Team Status: Active Member Role Status Dates Miryam Orozco ORTHODONTIC BAND MAKER-C Primary Care Provider Active Start: August 15, 2024 Dr. Gonzalo Lomax MD Attending Provider Active Start: August 15, 2024 Dr. Gonzalo Lomax MD Referring Provider Active Start: August 15, 2024 Dr. Gonzalo Lomax MD Other Provider Active Star t: August 15, 2024 Team Status: Active Member Role Status Dates Miryam Orozco ORTHODONTIC BAND MAKER-C Primary Care Provider Active Start: August 16, 2024 Gustavo MANZO MD Attending Provider Active Start: August 16, 2024 Team Status: Active Member Role Status Dates Miryam Orozco ORTHODONTIC BAND MAKER-C Primary Care Provider Active Start: August 18, 2024 Gustavo MANZO MD Attending Provider Active Start: August 18, 2024 Team Status: Active Member Role Status Dates Miryam Orozco ORTHODONTIC BAND MAKER-C Primary Care Provider Active Start: August 22, 2024 Gustavo MANZO MD Attending Provider Active Start: August 22, 2024 Team Status: Active Member Role Status Dates Miryam Orozco ORTHODONTIC BAND MAKER-C Primary Care Provider Active Start: August 22, [...] Provider Active Star t: September 01, 2024 Collar Closer Lockstitch Relationship Specialty Start Date End Date Lizy Capone MD [address] [place], [place] [address] PCP - General 11/15/08 Mulugeta Jennings NAILER OPERATOR.ACCOUNTANT [address] [facility], [place] [address] [phone] Transition Assistant Family Medicine 03/22/24 Team Status: Inactive Member Role Status Dates Miryam Orozco ORTHODONTIC BAND MAKER-C Primary Care Provider Active Start: September 05, 2024 End: September 05, 2024 Miryam Orozco NP-C Referring Provider Active Start: September 05, 2024 End: September 05, 2024 Dr. Mehdi Womack MD Attending Provider Active Start: September 05, 2024 End: September 05, 2024 Collar Closer Lockstitch Relationship Specialty Start Date End Date Lizy Capone MD [address] [facility], [place] [address] PCP - General 11/15/08 Mulugeta Jennings NAILER OPERATOR.ACCOUNTANT [address] [facility], [place] [address] [phone] [facility] 03/22/24 Collar Closer Lockstitch Relationship Specialty Start Date End Date Lizy Capone MD [address] [place] [address] PCP - General 11/15/08 Mulugeta Jennings NAILER OPERATOR.ACCOUNTANT [address] [place] [address] [facility] 03/22/24 Collar Closer Lockstitch Relationship Specialty Start Date End Date Lizy Capone MD [address] [place] [address] PCP - General 11/15/08 Mulugeta Jennings, NAILER OPERATOR.ACCOUNTANT [address] [place] [address] [facility] 03/22/24 Collar Closer Lockstitch Relationship Specialty Start Date End Date Lizy Capone MD [address] [place] [address] PCP - General 11/15/08 Mulugeta Jennings, NAILER OPERATOR.ACCOUNTANT [address] [place] [address] [facility] 03/22/24 Collar Closer Lockstitch Relationship Specialty Start Date End Date Lizy Capone MD [address] [place] [address] PCP - General 11/15/08 Mulugeta Jennings, NAILER OPERATOR.ACCOUNTANT [address] [place] [address] [facility] 03/22/24 Team Status: Active Member Role Status [...] Provider Active Start: September 06, 2024 Dr. Gonazlo Lomax MD Other Provider Active Star t: September 06, 2024 Collar Closer Lockstitch Relationship Specialty Start Date End Date Lizy Capone MD [address] [place], [place] [address] PCP - General 11/15/08 Mulugeta Jennings APRN.ACCOUNTANT [address] [place], [place] [address] Transition Assistant Family Medicine 03/22/24 Team Status: Inactive Member Role Status Dates Miryam Orozco NP-C Primary Care Provider Active Start: July 20, 2024 End: July 20, 2024 Minna Villarreal NP, ORTHODONTIC BAND MAKER-C Attending Provider Active Start: July 20, 2024 [...] Active Member Role Status Dates Miryam Orozco ORTHODONTIC BAND MAKER-C Primary Care Provider Active Start: September 20, [...] Provider Active St art: September 28, 2024 Collar [employer]oser [employer] Relationship Specialty Start Date End Date Lizy Capone MD [address] [place], [place] [id number] PCP - General 11/15/08 Mulugeta Jennings APRN.CNP [address] [place], [place] [id number] Transition Assistant Family Medicine 03/22/24 Team Status: Active Member [...] Start: May End: June 10, 2024 Dr. Geradro Rogers MD Other Provider Active Start: May 18, 2024 End: June 10, 2024 Team Status: Active Member Role/Relationship Status Dates Miryam Orozco [employer]ER-C Primary Care Provider Active Start: June 06, 2024 Dr. Mari Mehta DO Admit Provider Active Start: June 06, 2024 Dr. Mari Mehta DO Attending Provider Act vianney Start: June 06, 2024 Dr. Mari Mehta , Other Provider Active Start: June 06, 2024 Team Status: Active Member Role/Relationship Status Dates Miryam Orozco [employer]KER-C Primary Care Provider Active Start: June 07, 2024 Dr. Mari Mehta DO Admit Provider Active Start: June 07, 2024 Dr. Mari Mehta DO Attending Provider Act vianney Start: June 07, 2024 Dr. Mari Mehta DO Other Provider Active Start: June 07, 2024 Team Status: Active Member Role/Relationship Status Dates Miryam Orozco [employer]KER-C Primary Care Provider Active Start: June 07, [...] Active Member Role/Relationship Status Dates Miryam Orozco [employer]KER-C Primary Care Provider Active Start: June 10, 2024 Dr. Mari Mehta DO Admit Provider Active Start: June 10, 2024 Dr. Mari Mehta DO Attending Provider Act vianney Start: June 10, 2024 Dr. Mari Mehta DO Other Provider Active Start: June 10, 2024 Dr. Gerardo Rogers MD Other Provider Active Start: June 10, 2024 Team Status: Active Member Role/Relationship Status Dates Miryam Orozco [employer]ER-C Primary Care Provider Active Start: June 13, 2024 Gustavo MANZO MD Attending Provider Active Start: June 13, 2024 Team Status: Inactive Member Role/Relationship Status Dates Miryam Orozco , [employer]KER-C Primary Care Provider Active Start: June 13, 2024 End: June 13, 2024 Minna Villarreal [employer] BAND [employer]KER, [employer]ER-C Attending Provider Active Start: June 13, 2024 End: June 13, 2024 Team Status: Inactive Member Role/Relationship Status Dates Miryam Orozco , [employer]KER-C Primary Care Provider Active Start: June 14, 2024 End: June 14, 2024 Dr. Gustavo Castorena MD Attending Provider Active Start: June 14, 2024 End: June 14, 2024 Team Status: Active Member Role/Relationship Status Dates Miryam Orozco , [employer]KER-C Primary Care Provider Active Start: June 20, 2024 Gustavo MANZO MD Attending Provider Active Start: June 20, 2024 Team Status: Inactive Member Role/Relationship Status Dates Miryam Orozco , [employer]KER-C Primary Care Provider Active Start: June 22, 2024 End: June 22, 2024 Minna Villarreal [employer]THOD[employer]IC BAND MAKER, [employer]KER-C Attending Provider Active Start: June 22, 2024 End: June 22, 2024 Team Status: Active Member Role/Relationship Status Dates Miryam Orozco , [employer]KER-C Primary Care Provider Active Start: June 27, 2024 Gustavo MANZO MD Attending Provider Active Start: June 27, 2024 Team Status: Active Member Role/Relationship Status Dates Miryam Orozco , [employer]KER-C Primary Care Provider Active Start: July 04, 2024 Gustavo MANZO MD Attending Provider Active Start: July 04, 2024 Team Status: Active Member Role/Relationship Status Dates Miryam Orozco , [employer]KER-C Primary Care Provider Active Start: July 11, 2024 Gustavo MANZO MD Attending Provider Active Start: July 11, 2024 Gustavo MANZO MD Referring Provider Active Start: July 11, 2024 Team Status: Active Member Role/Relationship Status Dates Miryam Orozco , [employer]KER-C Primary Care Provider Active Start: July 18, 2024 Gustavo MANZO MD Attending Provider Active Start: July 18, 2024 Team Status: Inactive Member Role/Relationship Status Dates Miryam Orozco , [employer]KER-C Primary Care Provider Active Start: July 20, 2024 End: July 20, 2024 Minna Villarreal NP, [employer]KER-C Attending Provider Active Start: July 20, 2024 End: July 20, 2024 Team Status: Active Member Role/Relationship Status Dates Miryam Orozco , [employer]KER-C Primary Care Provider Active Start: July 25, 2024 Gustavo MANZO MD Attending Provider Active Start: July 25, 2024 Team Status: Inactive Member Role/Relationship Status Dates Miryam Orozco , [employer]KER-C Primary Care Provider Active Start: July 29, 2024 End: July 29, 2024 Dr. Jean Paul Ha DO Attending Provider Active Start : July 29, 2024 End: July 29, 2024 Dr. Jean Paul Ha DO Emergency Provider Active Start : July 29, 2024 End: July 29, 2024 Team Status: Active Member Role/Relationship Status Dates Miryam Orozco , [employer]-C Primary Care Provider Active Start: August 01, 2024 Gustavo MANZO MD Attending Provider Active Start: August 01, 2024 Gustavo MANZO MD Referring Provider Active Start: August 01, 2024 Team Status: Active Member Role/Relationship Status Dates Miryam Orozco , [employer]KER-C Primary Care Provider Active Start: August 08, 2024 Gustavo MANZO MD Attending Provider Active Start: August 08, 2024 Team Status: Inactive Member Role/Relationship Status Dates Miryam Orozco , [employer]KER-C Primary Care Provider Active Start: August 12, 2024 End: August 12, 2024 Miryam Orozco [employer]KER-C Referring Provider Active Start: August 12, 2024 End: August 12, 2024 Dr. Gonzalo Lomax MD Attending Provider Active Start: August 12, 2024 End: August 12, 2024 Team Status: Active Member Role/Relationship Status Dates Miryam Orozco , [employer]KER-C Primary Care Provider Active Start: August 15, 2024 Dr. Gonzalo Lomax MD Attending Provider Active Start: August 15, 2024 Dr. Gonzalo Lomax MD Referring Provider Active Start: August 15, 2024 Dr. Gonzalo Lomax MD Other Provider Active Star t: August 15, 2024 Team Status: Active Member Role/Relationship Status Dates Miryam Orozco , [employer]KER-C Primary Care Provider Active Start: August 16, 2024 Gustavo MANZO MD Attending Provider Active Start: August 16, 2024 Team Status: Active Member Role/Relationship Status Dates Miryam Serrapat , [employer]IC B[employer] MAKER-C Primary Care Provider Active Start: August 18, 2024 Gustavo MANZO MD Attending Provider Active Start: August 18, 2024 Team Status: Active Member Role/Relationship Status Dates Miraym Orozco [employer] MAKER-C Primary Care Provider Active Start: August 22, 2024 Gustavo MANZO MD Attending Provider Active Start: August 22, 2024 Gustavo MANZO MD Referring Provider Active Start: August 22, 2024 Team Status: Active Member Role/Relationship Status Dates Miryam Orozco , [employer]KER-C Primary Care Provider Active Start: August 22, 2024 Dr. Gonzalo Lomax MD Attending Provider Active Start: August 22, 2024 Dr. Gonzalo Lomax MD Referring Provider Active Start: August 22, 2024 Dr. Gonzalo Lomax MD Other Provider Active Star t: August 22, 2024 Team Status: Inactive Member Role/Relationship Status Dates Miryam Orozco [employer]KER-C Primary Care Provider Active Start: September 01, 2024 End: September 03, 2024 Dr. Gonzalo Lomax MD Attending Provider Active Start: September 01, 2024 End: September 03, 2024 Dr. Gonzalo Lomax MD Referring Provider Active Start: September 01, 2024 End: September 03, 2024 Team Status: Active Member Role/Relationship Status Dates Miryam Orozco [employer]KER-C Primary Care Provider Active Start: September 01, 2024 Dr. Gonzalo Lomax MD Attending Provider Active Start: September 01, 2024 Dr. Gonzalo Lomax MD Referring Provider Active Start: September 01, 2024 Dr. Gonzalo Lomax MD Other Provider Active Star t: September 01, 2024 Team Status: Inactive Member Role/Relationship Status Dates Miryam Orozco , [employer]KER-C Primary Care Provider Active Start: September 05, 2024 End: September 05, 2024 Miryam Orozco [employer]KER-C Referring Provider Active Start: September 05, 2024 End: September 05, 2024 Dr. Mehdi Womack MD Attending Provider Active Start: September 05, 2024 End: September 05, 2024 Team Status: Inactive Member Role/Relationship Status Dates Miryampoonam Orozco , [employer]KER-C Primary Care Provider Active Start: September 06, 2024 End: September 06, 2024 Dr. Gonzalo Lomax MD Attending Provider Active Start: September 06, 2024 End: September 06, 2024 Dr. Gonzalo Lomax MD Referring Provider Active Start: September 06, 2024 End: September 06, 2024 Team Status: Active Member Role/Relationship Status Dates Miryampoonam Orozco , [employer]IC B[employer] MAKER-C Primary Care Provider Active Start: September 06, 2024 Dr. Gonzalo Lomax MD Attending Provider Active Start: September 06, 2024 Dr. Gonzalo Lomax MD Referring Provider Active Start: September 06, 2024 Dr. Gonzalo Lomax MD Other Provider Active Star t: September 06, 2024 Team Status: Active Member Role/Relationship Status Dates Miryampoonam Orozco , [employer] B[employer] MAKER-C Primary Care Provider Active Start: September 12, 2024 Dr. Gonzalo Lomax MD Attending Provider Active Start: September 12, 2024 Dr. Gonzalo Lomax MD Referring Provider Active Start: September 12, 2024 Dr. Gonzalo Lomax MD Other Provider Active Star t: September 12, 2024 Team Status: Inactive Member Role/Relationship Status Dates Miryampoonam Orozco , [employer] B[employer] MAKER-C Primary Care Provider Active Start: September 19, 2024 End: October 03, 2024 Dr. Gonzalo Lomax MD Attending Provider Active Start: September 19, 2024 End: October 03, 2024 Dr. Gonzalo Lomax MD Referring Provider Active Start: September 19, 2024 End: October 03, 2024 Team Status: Active Member Role/Relationship Status Dates Miryampoonam Orozco , [employer]IC B[employer] MAKER-C Primary Care Provider Active Start: September 20, 2024 Dr. Gonzalo Lomax MD Attending Provider Active Start: September 20, 2024 Dr. Gonzalo Lomax MD Referring Provider Active Start: September 20, 2024 Dr. Gonzalo Lomax MD Other Provider Active Star t: September 20, 2024 Team Status: Active Member Role/Relationship Status Dates Miryampoonam Kimballhof , [employer] B[employer] MAKER-C Primary Care Provider Active Start: September 28, [...] Active Member Role/Relationship Status Dates Miryam Orozco [employer]KER-C Primary Care Provider Active Start: October 02, [...] Member Role/Relationship Status Dates Miryam Tannhof , [employer] MAKER-C Primary Care Provider Active Start: June 20, 2024 Gustavo MANZO MD Attending Provider Active Start: June 20, 2024 Team Status: Inactive Member Role/Relationship Status Dates Miryam Orozco [employer] MAKER-C Primary Care Provider Active Start: June 22, 2024 End: June 22, 2024 Minna Villarreal [employer]THOD[employer]IC BAND MAKER, [employer]TH[employer]IC B[employer] MAKER-C Attending Provider Active Start: June 22, 2024 End: June 22, 2024 Team Status: Active Member Role/Relationship Status Dates Miryam Orozco [employer] B[employer] MAKER-C Primary Care Provider Active Start: June 27, 2024 Gustavo MANZO MD Attending Provider Active Start: June 27, 2024 Team Status: Active Member Role/Relationship Status Dates Miryam Orozco [employer] MAKER-C Primary Care Provider Active Start: July 04, 2024 Gustavo MANZO MD Attending Provider Active Start: July 04, 2024 Team Status: Active Member Role/Relationship Status Dates Miryam Orozco [employer] B[employer] MAKER-C Primary Care Provider Active Start: July 11, 2024 Gustavo MANZO MD Attending Provider Active Start: July 11, 2024 Gustavo MANZO MD Referring Provider Active Start: July 11, 2024 Team Status: Active Member Role/Relationship Status Dates Miryam Orozco [employer] MAKER-C Primary Care Provider Active Start: July 18, 2024 Gustavo MANZO MD Attending Provider Active Start: July 18, 2024 Team Status: Inactive Member Role/Relationship Status Dates Miryam Orozco [employer] MAKER-C Primary Care Provider Active Start: July 20, 2024 End: July 20, 2024 Minna Villarreal [employer]THOD[employer]IC BAND MAKER, ORTH[employer]IC BAND MAKER-C Attending Provider Active Start: July 20, 2024 End: July 20, 2024 Team Status: Active Member Role/Relationship Status Dates Miryam Orozco [employer]TH[employer] MAKER-C Primary Care Provider Active Start: July 25, 2024 Gustavo MANZO MD Attending Provider Active Start: July 25, 2024 Team Status: Inactive Member Role/Relationship Status Dates Miryam Orozco , [employer] B[employer] MAKER-C Primary Care Provider Active Start: July 29, 2024 End: July 29, 2024 Dr. Jean Paul Ha DO Attending Provider Active Start : July 29, 2024 End: July 29, 2024 Dr. Jean Paul Ha DO Emergency Provider Active Start : July 29, 2024 End: July 29, 2024 Team Status: Active Member Role/Relationship Status Dates Miryam Orozco , [employer]KER-C Primary Care Provider Active Start: August 01, 2024 Gustavo MANZO MD Attending Provider Active Start: August 01, 2024 Gustavo MANZO MD Referring Provider Active Start: August 01, 2024 Team Status: Active Member Role/Relationship Status Dates Miryam Orozco , [employer]KER-C Primary Care Provider Active Start: August 08, 2024 Gustavo MANZO MD Attending Provider Active Start: August 08, 2024 Team Status: Inactive Member Role/Relationship Status Dates Miryam Orozco , [employer] B[employer] MAKER-C Primary Care Provider Active Start: August 12, 2024 End: August 12, 2024 Miryam Orozco [employer] B[employer] MAKER-C Referring Provider Active Start: August 12, 2024 End: August 12, 2024 Dr. Gonzalo Lomax MD Attending Provider Active Start: August 12, 2024 End: August 12, 2024 Team Status: Active Member Role/Relationship Status Dates Miryam Orozco [employer]KER-C Primary Care Provider Active Start: August 15, 2024 Dr. Gonzalo Lomax MD Attending Provider Active Start: August 15, 2024 Dr. Gonzalo Lomax MD Referring Provider Active Start: August 15, 2024 Dr. Gonzalo Lomax MD Other Provider Active Star t: August 15, 2024 Team Status: Active Member Role/Relationship Status Dates Miryam Orozco [employer] MAKER-C Primary Care Provider Active Start: August 16, 2024 Gustavo MANZO MD Attending Provider Active Start: August 16, 2024 Team Status: Active Member Role/Relationship Status Dates Miryam Orozco [employer]KER-C Primary Care Provider Active Start: August 18, 2024 Gustavo MANZO MD Attending Provider Active Start: August 18, 2024 Team Status: Active Member Role/Relationship Status Dates Miryam Orozco [employer] MAKER-C Primary Care Provider Active Start: August 22, 2024 Gustavo MANZO MD Attending Provider Active Start: August 22, 2024 Gustavo MANZO MD Referring Provider Active Start: August 22, 2024 Team Status: Active Member Role/Relationship Status Dates Miryam Orozco , [employer] B[employer] MAKER-C Primary Care Provider Active Start: August 22, 2024 Dr. Gonzalo Lomax MD Attending Provider Active Start: August 22, 2024 Dr. Gonzalo Lomax MD Referring Provider Active Start: August 22, 2024 Dr. Gonzalo Lomax MD Other Provider Active Star t: August 22, 2024 Team Status: Inactive Member Role/Relationship Status Dates Miryampoonam Serraf , [employer] B[employer] MAKER-C Primary Care Provider Active Start: September 01, 2024 End: September 03, 2024 Dr. Gonzalo Lomax MD Attending Provider Active Start: September 01, 2024 End: September 03, 2024 Dr. Gonzalo Lomax MD Referring Provider Active Start: September 01, 2024 End: September 03, 2024 Team Status: Active Member Role/Relationship Status Dates Miryam Orozco , [employer] B[employer] MAKER-C Primary Care Provider Active Start: September 01, 2024 Dr. Gonzalo Lomax MD Attending Provider Active Start: September 01, 2024 Dr. Gonzalo Lomax MD Referring Provider Active Start: September 01, 2024 Dr. Gonzalo Lomax MD Other Provider Active Star t: September 01, 2024 Team Status: Inactive Member Role/Relationship Status Dates Miryam Jigarhof , [employer] B[employer] MAKER-C Primary Care Provider Active Start: September 05, 2024 End: September 05, 2024 Miryampoonam Kimballhof , [employer]THOD[employer]IC B[employer] MAKER-C Referring Provider Active Start: September 05, 2024 End: September 05, 2024 Dr. Mehdi Womack MD Attending Provider Active Start: September 05, 2024 End: September 05, 2024 Team Status: Inactive Member Role/Relationship Status Dates Miryam Jigarhof , [employer] B[employer] MAKER-C Primary Care Provider Active Start: September 06, 2024 End: September 06, 2024 Dr. Gonzalo Lomax MD Attending Provider Active Start: September 06, 2024 End: September 06, 2024 Dr. Gonzalo Lomax MD Referring Provider Active Start: September 06, 2024 End: September 06, 2024 Team Status: Active Member Role/Relationship Status Dates Miryam Orozco , [employer] B[employer] MAKER-C Primary Care Provider Active Start: September 06, 2024 Dr. Gonzalo Lomax MD Attending Provider Active Start: September 06, 2024 Dr. Gonzalo Lomax MD Referring Provider Active Start: September 06, 2024 Dr. Gonzalo Lomax MD Other Provider Active Star t: September 06, 2024 Team Status: Active Member Role/Relationship Status Dates Miryam Orozco [employer] MAKER-C Primary Care Provider Active Start: September 12, 2024 Dr. Gonzalo Lomax MD Attending Provider Active Start: September 12, 2024 Dr. Gonzalo Lomax MD Referring Provider Active Start: September 12, 2024 Dr. Gonzalo Lomax MD Other Provider Active Star t: September 12, 2024 Team Status: Inactive Member Role/Relationship Status Dates Miryam Orozco [employer] B[employer] MAKER-C Primary Care Provider Active Start: September 19, 2024 End: October 03, 2024 Dr. Gonzalo Lomax MD Attending Provider Active Start: September 19, 2024 End: October 03, 2024 Dr. Gonzalo Lomax MD Referring Provider Active Start: September 19, 2024 End: October 03, 2024 Team Status: Active Member Role/Relationship Status Dates Miryam Orozco [employer] B[employer] MAKER-C Primary Care Provider Active Start: September 20, 2024 Dr. Gonzalo Lomax MD Attending Provider Active Start: September 20, 2024 Dr. Gonzalo Lomax MD Referring Provider Active Start: September 20, 2024 Dr. Gonzalo Lomax MD Other Provider Active Star t: September 20, 2024 Team Status: Inactive Member Role/Relationship Status Dates Miryam Orozco [employer] B[employer] MAKER-C Primary Care Provider Active Start: September 28, [...] Active Member Role/Relationship Status Dates Miryam Orozco [employer]TH[employer] MAKER-C Primary Care Provider Active Start: September 29, [...] Active Member Role/Relationship Status Dates Miryam Orozco [employer] B[employer] MAKER-C Primary Care Provider Active Start: September 30, [...] Active Member Role/Relationship Status Dates Miryam Orozco [employer] B[employer] MAKER-C Primary Care Provider Active Start: October 01, [...] Active Member Role/Relationship Status Dates Miryam Orozco [employer]THOD[employer] B[employer] MAKER-C Primary Care Provider Active Start: October 02, [...] Active Member Role/Relationship Status Dates Miryam Orozco [employer] B[employer] MAKER-C Primary Care Provider Active Start: October 03, [...] Active Member Role/Relationship Status Dates Miryam Orozco [employer] B[employer] MAKER-C Primary Care Provider Active Start: October 04, [...] Active Member Role/Relationship Status Dates Miryam Orozco [employer] B[employer] MAKER-C Primary Care Provider Active Start: October 04, 2024 Dr. Gautam Hardy MD Admit Provider Active Star t: October 04, 2024 Dr. Gautam Hardy MD Attending Provider Active Start: October 04, 2024 Dr. Gautam Hardy MD Referring Provider Active Start: October 04, 2024 Dr. Qian Albrecht MD Other Provider Active Start: October 04, 2024 Team Status: Active Member Role/Relationship Status Dates Miryam Orozco [employer] B[employer] MAKER-C Primary Care Provider Active Start: October 10, 2024 Dr. Gonzalo Lomax MD Attending Provider Active Start: October 10, 2024 Dr. Gonzalo Lomax MD Referring Provider Active Start: October 10, 2024 Team Status: Active Member Role/Relationship Status Dates Miryam Orozco [employer] B[employer] MAKER-C Primary Care Provider Active Start: October 10, 2024 Dr. Gonzalo Lomax MD Attending Provider Active Start: October 10, 2024 Dr. Gonzalo Lomax MD Referring Provider Active Start: October 10, 2024 Dr. Gonzalo Lomax MD Other Provider Active Star t: October 10, 2024 Team Status: Active Member Role/Relationship Status Dates Miryam Orozco [employer] B[employer] MAKER-C Primary Care Provider Active Start: October 11, 2024 Dr. Gautam Hardy MD Attending Provider Active Start: October 11, 2024 Dr. Gautam Hardy MD Referring Provider Active Start: October 11, 2024 Team Status: Active Member Role/Relationship Status Dates Miryam Orozco [employer] B[employer] MAKER-C Primary Care Provider Active Start: October 11, 2024 Dr. Russell Gonzalez MD Attending Provider Active S tart: October 11, 2024 Team Status: Inactive Member Role/Relationship Status Dates Miryam Orozco [employer] B[employer] MAKER-C Primary Care Provider Active Start: October 12, 2024 End: October 12, 2024 Dr. Alexis Friend MD Emergency Provider Active Sta rt: October 12, 2024 End: October 12, 2024 Team Status: Active Member Role/Relationship Status Dates Miryam Orozco [employer] MAKER-C Primary Care Provider Active Start: June 20, 2024 Gustavo MANZO MD Attending Provider Active Start: June 20, 2024 Team Status: Inactive Member Role/Relationship Status Dates Miryam Orozco [employer]TH[employer]IC B[employer] MAKER-C Primary Care Provider Active Start: June 22, 2024 End: June 22, 2024 Minna Tickton ORTHODONTIC BAND MAKER, ORTHOD[employer]IC BAND MAKER-C Attending Provider Active Start: June 22, 2024 End: June 22, 2024 Team Status: Active Member Role/Relationship Status Dates Miryam Orozco , ORTHOD[employer]IC BAND MAKER-C Primary Care Provider Active Start: June 27, 2024 Gustavo MANZO MD Attending Provider Active Start: June 27, 2024 Team Status: Active Member Role/Relationship Status Dates Miryam Orozco , [employer]TH[employer] B[employer] MAKER-C Primary Care Provider Active Start: July 04, 2024 Gustavo MANZO MD Attending Provider Active Start: July 04, 2024 Team Status: Active Member Role/Relationship Status Dates Miryam Orozco , [employer]THOD[employer]IC B[employer] MAKER-C Primary Care Provider Active Start: July 11, 2024 Gustavo MANZO MD Attending Provider Active Start: July 11, 2024 Gustavo MANZO MD Referring Provider Active Start: July 11, 2024 Team Status: Active Member Role/Relationship Status Dates Miryam Orozco , [employer]IC B[employer] MAKER-C Primary Care Provider Active Start: July 18, 2024 Gustavo MANZO MD Attending Provider Active Start: July 18, 2024 Team Status: Inactive Member Role/Relationship Status Dates Miryam Orozco , [employer]TH[employer]IC B[employer] MAKER-C Primary Care Provider Active Start: July 20, 2024 End: July 20, 2024 Minna Villarreal ORTHOD[employer]IC BAND MAKER, ORTH[employer]IC BAND MAKER-C Attending Provider Active Start: July 20, 2024 End: July 20, 2024 Team Status: Active Member Role/Relationship Status Dates Miryam Orozco , ORTH[employer]IC B[employer] MAKER-C Primary Care Provider Active Start: July 25, 2024 Gustavo MANZO MD Attending Provider Active Start: July 25, 2024 Team Status: Inactive Member Role/Relationship Status Dates Miryam Orozco , [employer] B[employer]KER-C Primary Care Provider Active Start: July 29, 2024 End: July 29, 2024 Dr. Jean Paul Ha DO Attending Provider Active Start : July 29, 2024 End: July 29, 2024 Dr. Jean Paul Ha DO Emergency Provider Active Start : July 29, 2024 End: July 29, 2024 Team Status: Active Member Role/Relationship Status Dates Miryam Orozco , [employer] B[employer] MAKER-C Primary Care Provider Active Start: August 01, 2024 Gustavo MANZO MD Attending Provider Active Start: August 01, 2024 Gustavo MANZO MD Referring Provider Active Start: August 01, 2024 Team Status: Active Member Role/Relationship Status Dates Miryam Serrapat , [employer]IC B[employer] MAKER-C Primary Care Provider Active Start: August 08, 2024 Gustavo MANZO MD Attending Provider Active Start: August 08, 2024 Team Status: Inactive Member Role/Relationship Status Dates Miryampoonam Kimballhopat , ORTHOD[employer]IC B[employer] MAKER-C Primary Care Provider Active Start: August 12, 2024 End: August 12, 2024 Miryam Orozco , ORTHOD[employer]IC BAND MAKER-C Referring Provider Active Start: August 12, 2024 End: August 12, 2024 Dr. Gonzalo Lomax MD Attending Provider Active Start: August 12, 2024 End: August 12, 2024 Team Status: Active Member Role/Relationship Status Dates Miryam Orozco , [employer]TH[employer]IC B[employer] MAKER-C Primary Care Provider Active Start: August 15, 2024 Dr. Gonzalo Lomax MD Attending Provider Active Start: August 15, 2024 Dr. Gonzalo Lomax MD Referring Provider Active Start: August 15, 2024 Dr. Gonzalo Lomax MD Other Provider Active Star t: August 15, 2024 Team Status: Active Member Role/Relationship Status Dates Miryam Orozco , [employer] Primary Care Provider Active Start: August 16, 2024 Gustavo MANZO MD Attending Provider Active Start: August 16, 2024 Team Status: Active Member Role/Relationship Status Dates Miryam Orozco , [employer] Primary Care Provider Active Start: August 18, 2024 Gustavo MANZO MD Attending Provider Active Start: August 18, 2024 Team Status: Active Member Role/Relationship Status Dates Miryam Orozco , [employer] Primary Care Provider Active Start: August 22, 2024 Gustavo MANZO MD Attending Provider Active Start: August 22, 2024 Gustavo MANZO MD Referring Provider Active Start: August 22, 2024 Team Status: Active Member Role/Relationship Status Dates Miryam Orozco , [employer] Primary Care Provider Active Start: August 22, 2024 Dr. Gonzalo Lomax MD Attending Provider Active Start: August 22, 2024 Dr. Gonzalo Lomax MD Referring Provider Active Start: August 22, 2024 Dr. Gonzalo Lomax MD Other Provider Active Star t: August 22, 2024 Team Status: Inactive Member Role/Relationship Status Dates Miryampoonam Kimballhopat , [employer] Primary Care Provider Active Start: September 01, 2024 End: September 03, 2024 Dr. Gonzalo Lomax MD Attending Provider Active Start: September 01, 2024 End: September 03, 2024 Dr. Gonzalo Lomax MD Referring Provider Active Start: September 01, 2024 End: September 03, 2024 Team Status: Active Member Role/Relationship Status Dates Miryampoonam Kimballhof , [employer] Primary Care Provider Active Start: September 01, 2024 Dr. Gonzalo Lomax MD Attending Provider Active Start: September 01, 2024 Dr. Gonzalo Lomax MD Referring Provider Active Start: September 01, 2024 Dr. Gonzalo Lomax MD Other Provider Active Star t: September 01, 2024 Team Status: Inactive Member Role/Relationship Status Dates Miryam Tannhof , [employer] Primary Care Provider Active Start: September 05, 2024 End: September 05, 2024 Miryam Jigarhof , [employer] Referring Provider Active Start: September 05, 2024 End: September 05, 2024 Dr. Mehdi Womack MD Attending Provider Active Start: September 05, 2024 End: September 05, 2024 Team Status: Inactive Member Role/Relationship Status Dates Miryam Tannhof , [employer] Primary Care Provider Active Start: September 06, 2024 End: September 06, 2024 Dr. Gonzalo Lomax MD Attending Provider Active Start: September 06, 2024 End: September 06, 2024 Dr. Gonzalo Lomax MD Referring Provider Active Start: September 06, 2024 End: September 06, 2024 Team Status: Active Member Role/Relationship Status Dates Miryampoonam Kimballhof , [employer] Primary Care Provider Active Start: September 06, 2024 Dr. Gonzalo Lomax MD Attending Provider Active Start: September 06, 2024 Dr. Gonzalo Lomax MD Referring Provider Active Start: September 06, 2024 Dr. Gonzalo Lomax MD Other Provider Active Star t: September 06, 2024 Team Status: Active Member Role/Relationship Status Dates Miryampoonam Kimballhof , [employer] Primary Care Provider Active Start: September 12, 2024 Dr. Gonzalo Lomax MD Attending Provider Active Start: September 12, 2024 Dr. Gonzalo Lomax MD Referring Provider Active Start: September 12, 2024 Dr. Gonzalo Lomax MD Other Provider Active Star t: September 12, 2024 Team Status: Inactive Member Role/Relationship Status Dates Miryam Orozco [employer] Primary Care Provider Active Start: September 19, 2024 End: October 03, 2024 Dr. Gonzalo Lomax MD Attending Provider Active Start: September 19, 2024 End: October 03, 2024 Dr. Gonzalo Lomax MD Referring Provider Active Start: September 19, 2024 End: October 03, 2024 Team Status: Active Member Role/Relationship Status Dates Miryam Orozco [employer] Primary Care Provider Active Start: September 20, 2024 Dr. Gonzalo Lomax MD Attending Provider Active Start: September 20, 2024 Dr. Gonzalo Lomax MD Referring Provider Active Start: September 20, 2024 Dr. Gonzalo Lomax MD Other Provider Active Star t: September 20, 2024 Team Status: Inactive Member Role/Relationship Status Dates Miryam Orozco [employer] Primary Care Provider Active Start: September 28, [...] Active Member Role/Relationship Status Dates Miryam Orozco [employer] Primary Care Provider Active Start: September 29, [...] Active Member Role/Relationship Status Dates Miryam Orozco [employer] Primary Care Provider Active Start: September 30, [...] Active Member Role/Relationship Status Dates Miryam Orozco [employer] Primary Care Provider Active Start: October 03, [...] Member Role/Relationship Status Dates Miryam Orozco , [employer] Primary Care Provider Active Start: October 10, 2024 Dr. Gonzalo Lomax MD Attending Provider Active Start: October 10, 2024 Dr. Gonzalo Lomax MD Referring Provider Active Start: October 10, 2024 Team Status: Active Member Role/Relationship Status Dates Miryam Orozco , [employer] Primary Care Provider Active Start: October 10, 2024 Dr. Gonzalo Lomax MD Attending Provider Active Start: October 10, 2024 Dr. Gonzalo Lomax MD Referring Provider Active Start: October 10, 2024 Dr. Gonzalo Lomax MD Other Provider Active Star t: October 10, 2024 Team Status: Active Member Role/Relationship Status Dates Miryam Orozco , [employer] Primary Care Provider Active Start: October 11, 2024 Dr. Gautam Hardy MD Attending Provider Active Start: October 11, 2024 Dr. Gautam Hardy MD Referring Provider Active Start: October 11, 2024 Team Status: Active Member Role/Relationship Status Dates Miryam Orozco , [employer] Primary Care Provider Active Start: October 11, 2024 Dr. Russell Gonzalez MD Attending Provider Active S tart: October 11, 2024 Team Status: Inactive Member Role/Relationship Status Dates Miryam Orozco , [employer] Primary Care Provider Active Start: October 12, 2024 End: October 12, 2024 Dr. Alexis Friend MD Emergency Provider Active Sta rt: October 12, 2024 End: October 12, 2024 Team Status: Inactive Member Role/Relationship Status Dates Miryampoonam Orozco , [employer] Primary Care Provider Active Start: October 14, 2024 End: October 14, 2024 Miryam Orozco , [employer]-C Referring Provider Active Start: October 14, 2024 End: October 14, 2024 Dr. William Cruz DO Attending Provider Active Start: October 14, 2024 End: October 14, 2024 Team Status: Active Member Role/Relationship Status Dates Miryam Orozco , [employer] Primary Care Provider Active Start: October 14, 2024 Miryam Orozco , [employer]-C Referring Provider Active Start: October 14, 2024 Dr. William Cruz DO Attending Provider Active Start: October 14, 2024 Dr. William Friend , DO Other Provider Active St art: October 14, 2024 Team Status: Inactive Member Role/Relationship Status Dates Miryam Orozco [employer] Primary Care Provider Active Start: October 11, 2024 End: October 11, 2024 Dr. Gautam Hardy MD Attending Provider Active Start: October 11, 2024 End: October 11, 2024 Dr. Gautam Hardy MD Referring Provider Active Start: October 11, 2024 End: October 11, 2024 Team Status: Inactive Member Role/Relationship Status Dates Miryam Orozco [employer] Primary Care Provider Active Start: June 22, 2024 End: June 22, 2024 Minna Villarreal NP, [employer] Attending Provider Active Start: June 22, 2024 End: June 22, 2024 Team Status: Active Member Role/Relationship Status Dates Miryam Orozco [employer] Primary Care Provider Active Start: June 27, 2024 Gustavo MANZO MD Attending Provider Active Start: June 27, 2024 Team Status: Active Member Role/Relationship Status Dates Miryam Orozco [employer] Primary Care Provider Active Start: July 04, 2024 Gustavo MANZO MD Attending Provider Active Start: July 04, 2024 Team Status: Active Member Role/Relationship Status Dates Miryam Orozco [employer] Primary Care Provider Active Start: July 11, 2024 Gustavo MANZO MD Attending Provider Active Start: July 11, 2024 Gustavo MANZO MD Referring Provider Active Start: July 11, 2024 Team Status: Active Member Role/Relationship Status Dates Miryam Orozco [employer] Primary Care Provider Active Start: July 18, 2024 Gustavo MANZO MD Attending Provider Active Start: July 18, 2024 Team Status: Inactive Member Role/Relationship Status Dates Miryam Orozco [employer]-C Primary Care Provider Active Start: July 20, 2024 End: July 20, 2024 Minna Villarreal NP, [employer] Attending Provider Active Start: July 20, 2024 End: July 20, 2024 Team Status: Active Member Role/Relationship Status Dates Miryam Orozco [employer]-C Primary Care Provider Active Start: July 25, 2024 Gustavo MANZO MD Attending Provider Active Start: July 25, 2024 Team Status: Inactive Member Role/Relationship Status Dates Miryam Orozco , [employer] Primary Care Provider Active Start: July 29, 2024 End: July 29, 2024 Dr. Jean Paul Ha DO Attending Provider Active Start : July 29, 2024 End: July 29, 2024 Dr. Jean Paul Ha DO Emergency Provider Active Start : July 29, 2024 End: July 29, 2024 Team Status: Active Member Role/Relationship Status Dates Miryam Orozco , [employer] Primary Care Provider Active Start: August 01, 2024 Gustavo MANZO MD Attending Provider Active Start: August 01, 2024 Gustavo MANZO MD Referring Provider Active Start: August 01, 2024 Team Status: Active Member Role/Relationship Status Dates Miryampoonam Orozco , [employer] Primary Care Provider Active Start: August 08, 2024 Gustavo MANZO MD Attending Provider Active Start: August 08, 2024 Team Status: Inactive Member Role/Relationship Status Dates Miryampoonam Orozco , [employer] Primary Care Provider Active Start: August 12, 2024 End: August 12, 2024 Miryam Orozco , [employer]-C Referring Provider Active Start: August 12, 2024 End: August 12, 2024 Dr. Gonzalo Lomax MD Attending Provider Active Start: August 12, 2024 End: August 12, 2024 Team Status: Active Member Role/Relationship Status Dates Miryam Orozco , [employer] Primary Care Provider Active Start: August 15, 2024 Dr. Gonzalo Lomax MD Attending Provider Active Start: August 15, 2024 Dr. Gonzalo Lomax MD Referring Provider Active Start: August 15, 2024 Dr. Gonzalo Lomax MD Other Provider Active Star t: August 15, 2024 Team Status: Active Member Role/Relationship Status Dates Miryam Orozco , [employer] Primary Care Provider Active Start: August 16, 2024 Gustavo MANZO MD Attending Provider Active Start: August 16, 2024 Team Status: Active Member Role/Relationship Status Dates Miryam Orozco , [employer] Primary Care Provider Active Start: August 18, 2024 Gustavo MANZO MD Attending Provider Active Start: August 18, 2024 Team Status: Active Member Role/Relationship Status Dates Miryam Orozco , [employer]-C Primary Care Provider Active Start: August 22, 2024 Gustavo MANZO MD Attending Provider Active Start: August 22, 2024 Gustavo MANZO MD Referring Provider Active Start: August 22, 2024 Team Status: Active Member Role/Relationship Status Dates Miryampoonam Orozco , [employer]-C Primary Care Provider Active Start: August 22, 2024 Dr. Gonzalo Lomax MD Attending Provider Active Start: August 22, 2024 Dr. Gonzalo Lomax MD Referring Provider Active Start: August 22, 2024 Dr. Gonzalo Lomax MD Other Provider Active Star t: August 22, 2024 Team Status: Inactive Member Role/Relationship Status Dates Miryampoonam Orozco , [employer]-C Primary Care Provider Active Start: September 01, 2024 End: September 03, 2024 Dr. Gonzalo Lomax MD Attending Provider Active Start: September 01, 2024 End: September 03, 2024 Dr. Gonzalo Lomax MD Referring Provider Active Start: September 01, 2024 End: September 03, 2024 Team Status: Active Member Role/Relationship Status Dates Miryam Orozco , [employer] Primary Care Provider Active Start: September 01, 2024 Dr. Gonzalo Lomax MD Attending Provider Active Start: September 01, 2024 Dr. Gonzalo Lomax MD Referring Provider Active Start: September 01, 2024 Dr. Gonzalo Lomax MD Other Provider Active Star t: September 01, 2024 Team Status: Inactive Member Role/Relationship Status Dates Miryampoonam Kimballhof , [employer] Primary Care Provider Active Start: September 05, 2024 End: September 05, 2024 Miryampoonam Orozco , [employer]-C Referring Provider Active Start: September 05, 2024 End: September 05, 2024 Dr. Mehdi Womack MD Attending Provider Active Start: September 05, 2024 End: September 05, 2024 Team Status: Inactive Member Role/Relationship Status Dates Miryampoonam Kimballhof , [employer] Primary Care Provider Active Start: September 06, 2024 End: September 06, 2024 Dr. Gonzalo Lomax MD Attending Provider Active Start: September 06, 2024 End: September 06, 2024 Dr. Gonzalo Lomax MD Referring Provider Active Start: September 06, 2024 End: September 06, 2024 Team Status: Active Member Role/Relationship Status Dates Miryam Orozco [employer]-C Primary Care Provider Active Start: September 06, 2024 Dr. Gonzalo Lomax MD Attending Provider Active Start: September 06, 2024 Dr. Gonzalo Lomax MD Referring Provider Active Start: September 06, 2024 Dr. Gonzalo Lomax MD Other Provider Active Star t: September 06, 2024 Team Status: Active Member Role/Relationship Status Dates Miryam Orozco [employer] Primary Care Provider Active Start: September 12, 2024 Dr. Gonzalo Lomax MD Attending Provider Active Start: September 12, 2024 Dr. Gonzalo Lomax MD Referring Provider Active Start: September 12, 2024 Dr. Gonzalo Lomax MD Other Provider Active Star t: September 12, 2024 Team Status: Inactive Member Role/Relationship Status Dates Miryam Orozco , [employer]-C Primary Care Provider Active Start: September 19, 2024 End: October 03, 2024 Dr. Gonzalo Lomax MD Attending Provider Active Start: September 19, 2024 End: October 03, 2024 Dr. Gonzalo Lomax MD Referring Provider Active Start: September 19, 2024 End: October 03, 2024 Team Status: Active Member Role/Relationship Status Dates Miryam Orozco [employer] Primary Care Provider Active Start: September 20, 2024 Dr. Gonzalo Lomax MD Attending Provider Active Start: September 20, 2024 Dr. Gonzalo Lomax MD Referring Provider Active Start: September 20, 2024 Dr. Gonzalo Lomax MD Other Provider Active Star t: September 20, 2024 Team Status: Inactive Member Role/Relationship Status Dates Miryam Orozco , [employer]-C Primary Care Provider Active Start: September 28, [...] Status: Active Member Role/Relationship Status Dates Miryam Oorzco [employer]-C Primary Care Provider Active Start: September 29, [...] Provider Active Start: September 30, 2024 Dr. Russlel Todd DO Other Provider Active Star t: [...] Active Start: October 01, 2024 Dr. Alex cAosta DO Attending Provider Active S tart: October [...] Active Member Role/Relationship Status Dates Miryam Orozco [employer]-C Primary Care Provider Active Start: October 03, [...] Active Member Role/Relationship Status Dates Miryam Orozco [employer]-C Primary Care Provider Active Start: October 04, [...] Member Role/Relationship Status Dates Miryam Orozco , [employer]-C Primary Care Provider Active Start: October 04, [...] Member Role/Relationship Status Dates Miryampoonam Orozco , [employer]-C Primary Care Provider Active Start: October 10, 2024 Dr. Gonzalo Lomax MD Attending Provider Active Start: October 10, 2024 Dr. Gonzalo Lomax MD Referring Provider Active Start: October 10, 2024 Team Status: Active Member Role/Relationship Status Dates Miryam Orozco , [employer]-C Primary Care Provider Active Start: October 10, 2024 Dr. Gonzalo Lomax MD Attending Provider Active Start: October 10, 2024 Dr. Gonzalo Lomax MD Referring Provider Active Start: October 10, 2024 Dr. Gonzalo Lomax MD Other Provider Active Star t: October 10, 2024 Team Status: Inactive Member Role/Relationship Status Dates Miryam Orozco , [employer] Primary Care Provider Active Start: October 11, 2024 End: October 11, 2024 Dr. Gautam Hardy MD Attending Provider Active Start: October 11, 2024 End: October 11, 2024 Dr. Gautam Hardy MD Referring Provider Active Start: October 11, 2024 End: October 11, 2024 Team Status: Active Member Role/Relationship Status Dates Miryam Orozco , [employer]-C Primary Care Provider Active Start: October 11, 2024 Dr. Russell Gonzalez MD Attending Provider Active S tart: October 11, 2024 Team Status: Inactive Member Role/Relationship Status Dates Miryampoonam Kimballhopat , [employer]-C Primary Care Provider Active Start: October 12, [...] Provider Active St art: October 14, 2024 Collar Closer Lockstitch Relationship Specialty Start Date End Date Lizy Capone MD [address] [place] [address] PCP - General 11/15/08 Mulugeta Jennings APRN.ACCOUNTANT [address] [place] [address] [facility] Collar Closer Lockstitch Relationship Specialty Start Date End Date Lizy Capone MD [address] [place] [address] PCP - General 11/15/08 Mulugeta Jennings APRN.ACCOUNTANT [address] [place] [address] [facility]/22/24 Team Status: Active Member Role/Relationship Status Dates Miryam Tannhof , [employer]-C Primary Care Provider Active Start: June 27, 2024 Gustavo MANZO MD Attending Provider Active Start: June 27, 2024 Team Status: Active Member Role/Relationship Status Dates Miryam Orozco [employer]-C Primary Care Provider Active Start: July 04, 2024 Gustavo MANZO MD Attending Provider Active Start: July 04, 2024 Team Status: Active Member Role/Relationship Status Dates Miryam Orozco [employer]-C Primary Care Provider Active Start: July 11, 2024 Gustavo MANZO MD Attending Provider Active Start: July 11, 2024 Gustavo MANZO MD Referring Provider Active Start: July 11, 2024 Team Status: Active Member Role/Relationship Status Dates Miryam Orozco [employer]-C Primary Care Provider Active Start: July 18, 2024 Gutsavo MANZO MD Attending Provider Active Start: July 18, 2024 Team Status: Inactive Member Role/Relationship Status Dates Miryam Orozco [employer]-C Primary Care Provider Active Start: July 20, 2024 End: July 20, 2024 Minna Villarreal NP, [employer]-C Attending Provider Active Start: July 20, 2024 End: July 20, 2024 Team Status: Active Member Role/Relationship Status Dates Miryam Orozco [employer]-C Primary Care Provider Active Start: July 25, 2024 Gustavo MANZO MD Attending Provider Active Start: July 25, 2024 Team Status: Inactive Member Role/Relationship Status Dates Miryam Orozco [employer]-C Primary Care Provider Active Start: July 29, 2024 End: July 29, 2024 Dr. Jean Paul Ha DO Attending Provider Active Start : July 29, 2024 End: July 29, 2024 Dr. Jean Paul Ha DO Emergency Provider Active Start : July 29, 2024 End: July 29, 2024 Team Status: Active Member Role/Relationship Status Dates Miryam Orozco [employer]-C Primary Care Provider Active Start: August 01, 2024 Gustavo MANZO MD Attending Provider Active Start: August 01, 2024 Gustavo MANZO MD Referring Provider Active Start: August 01, 2024 Team Status: Active Member Role/Relationship Status Dates Miryam Tannhof , [employer]-C Primary Care Provider Active Start: August 08, 2024 Gustavo MANZO MD Attending Provider Active Start: August 08, 2024 Team Status: Inactive Member Role/Relationship Status Dates Miryampoonam Kimballhof , [employer]-C Primary Care Provider Active Start: August 12, 2024 End: August 12, 2024 Miryam Orozco , [employer]-C Referring Provider Active Start: August 12, 2024 End: August 12, 2024 Dr. Gonzalo Lomax MD Attending Provider Active Start: August 12, 2024 End: August 12, 2024 Team Status: Active Member Role/Relationship Status Dates Miryampoonam Kimballhopat , [employer]-C Primary Care Provider Active Start: August 15, 2024 Dr. Gonzalo Lomax MD Attending Provider Active Start: August 15, 2024 Dr. Gonzalo Lomax MD Referring Provider Active Start: August 15, 2024 Dr. Gonzalo Lomax MD Other Provider Active Star t: August 15, 2024 Team Status: Active Member Role/Relationship Status Dates Miryampoonam Orozco , [employer]-C Primary Care Provider Active Start: August 16, 2024 Gustavo MANZO MD Attending Provider Active Start: August 16, 2024 Team Status: Active Member Role/Relationship Status Dates Miryampoonam Kimballhopat , [employer]-C Primary Care Provider Active Start: August 18, 2024 Gustavo MANZO MD Attending Provider Active Start: August 18, 2024 Team Status: Active Member Role/Relationship Status Dates Miryampoonam Kimballhopat , [employer]-C Primary Care Provider Active Start: August 22, 2024 Gustavo MANZO MD Attending Provider Active Start: August 22, 2024 Gustavo MANZO MD Referring Provider Active Start: August 22, 2024 Team Status: Active Member Role/Relationship Status Dates Miryampoonam Orozco , [employer]-C Primary Care Provider Active Start: August 22, 2024 Dr. Gonzalo Lomax MD Attending Provider Active Start: August 22, 2024 Dr. Gonzalo Lomax MD Referring Provider Active Start: August 22, 2024 Dr. Gonzalo Lomax MD Other Provider Active Star t: August 22, 2024 Team Status: Inactive Member Role/Relationship Status Dates Miryampoonam Kimballhof , [employer]-C Primary Care Provider Active Start: September 01, 2024 End: September 03, 2024 Dr. Gonzalo Lomax MD Attending Provider Active Start: September 01, 2024 End: September 03, 2024 Dr. Gonzalo Lomax MD Referring Provider Active Start: September 01, 2024 End: September 03, 2024 Team Status: Active Member Role/Relationship Status Dates Miryam Orozco , [employer]-C Primary Care Provider Active Start: September 01, 2024 Dr. Gonzalo Lomax MD Attending Provider Active Start: September 01, 2024 Dr. Gonzalo Lomax MD Referring Provider Active Start: September 01, 2024 Dr. Gonzalo Lomax MD Other Provider Active Star t: September 01, 2024 Team Status: Inactive Member Role/Relationship Status Dates Miryam Jigarhof , [employer]-C Primary Care Provider Active Start: September 05, 2024 End: September 05, 2024 Miryampoonam Kimballhof , [employer]-C Referring Provider Active Start: September 05, 2024 End: September 05, 2024 Dr. Mehdi Womack MD Attending Provider Active Start: September 05, 2024 End: September 05, 2024 Team Status: Inactive Member Role/Relationship Status Dates Miryampoonam Kimballhof , [employer]-C Primary Care Provider Active Start: September 06, 2024 End: September 06, 2024 Dr. Gonzalo Lomax MD Attending Provider Active Start: September 06, 2024 End: September 06, 2024 Dr. Gonzalo Lomax MD Referring Provider Active Start: September 06, 2024 End: September 06, 2024 Team Status: Active Member Role/Relationship Status Dates Miryam Orozco , [employer]-C Primary Care Provider Active Start: September 06, 2024 Dr. Gonzalo Lomax MD Attending Provider Active Start: September 06, 2024 Dr. Gonzalo Lomax MD Referring Provider Active Start: September 06, 2024 Dr. Gonzalo Lomax MD Other Provider Active Star t: September 06, 2024 Team Status: Active Member Role/Relationship Status Dates Miryam Orozco , [employer]-C Primary Care Provider Active Start: September 12, 2024 Dr. Gonzalo Lomax MD Attending Provider Active Start: September 12, 2024 Dr. Gonzalo Lomax MD Referring Provider Active Start: September 12, 2024 Dr. Gonzalo Lomax MD Other Provider Active Star t: September 12, 2024 Team Status: Inactive Member Role/Relationship Status Dates Miryampoonam Orozco ORTHODONTIC BAND MAKER-C Primary Care Provider Active Start: September 19, 2024 End: October 03, 2024 Dr. Gonzalo Lomax MD Attending Provider Active Start: September 19, 2024 End: October 03, 2024 Dr. Gonzalo Lomax MD Referring Provider Active Start: September 19, 2024 End: October 03, 2024 Team Status: Active Member Role/Relationship Status Dates Miryam Orozco ORTHOD[employer]IC BAND MAKER-C Primary Care Provider Active Start: September 20, 2024 Dr. Gonzalo Lomax MD Attending Provider Active Start: September 20, 2024 Dr. Gonzalo Lomax MD Referring Provider Active Start: September 20, 2024 Dr. Gonzalo Lomax MD Other Provider Active Star t: September 20, 2024 Team Status: Inactive Member Role/Relationship Status Dates Miryam Kimballree ORTHOD[employer]IC BAND MAKER-C Primary Care Provider Active Start: September 28, [...] Active Member Role/Relationship Status Dates Miryam Kimballree ORTHOD[employer]IC BAND MAKER-C Primary Care Provider Active Start: September 29, [...] Active Member Role/Relationship Status Dates Miryam Orozco [employer]THOD[employer]IC BAND MAKER-C Primary Care Provider Active Start: September 30, 2024 Dr. Jhonatan Maxwell DO Emergency Provider Active Start: September 30, 2024 Dr. Michelle Gallardo MD Admit Provider Active St art: September 30, 2024 Dr. Michelle Gallardo MD Other Provider Active St art: September 30, 2024 Dr. Qina Albrecht MD Other Provider Active Start: September 30, 2024 Dr. Russell Todd DO Attending Provider Active Start: September 30, 2024 Dr. Russell Todd DO Other Provider Active Star t: September 30, 2024 Team Status: Active Member Role/Relationship Status Dates Miryam Orozco ORTHOD[employer]IC BAND MAKER-C Primary Care Provider Active Start: October 01, [...] Active Member Role/Relationship Status Dates Miryam Orozco ORTHOD[employer]IC BAND MAKER-C Primary Care Provider Active Start: October 02, [...] Team Status: Active Member Role/Relationship Status Dates Miryampoonma Orozco , ORTHOD[employer]IC BAND MAKER-C Primary Care Provider Active Start: October 03, [...] Member Role/Relationship Status Dates Miryampoonam Kimballhof , ORTHOD[employer]IC BAND MAKER-C Primary Care Provider Active Start: October 04, 2024 Dr. Chayo Hernandez MD Attending Provider Active Start: October 04, 2024 Team Status: Active Member Role/Relationship Status Dates Miryampoonam Serraf , ORTHODONTIC BAND MAKER-C Primary Care Provider Active Start: October 10, 2024 Dr. Gonzalo Lomax MD Attending Provider Active Start: October 10, 2024 Dr. Gonzalo Lomax MD Referring Provider Active Start: October 10, 2024 Dr. Gonzalo Lomax MD Other Provider Active Star t: October 10, 2024 Team Status: Inactive Member Role/Relationship Status Dates Miryampoonam Kimballhof , ORTHOD[employer]IC BAND MAKER-C Primary Care Provider Active Start: October 11, 2024 End: October 11, 2024 Dr. Gautam Hardy MD Attending Provider Active Start: October 11, 2024 End: October 11, 2024 Dr. Gautam Hardy MD Referring Provider Active Start: October 11, 2024 End: October 11, 2024 Team Status: Active Member Role/Relationship Status Dates Miryampoonam Orozco , ORTHOD[employer]IC BAND MAKER-C Primary Care Provider Active Start: October 11, 2024 Dr. Russell Gonzalez MD Attending Provider Active S tart: October 11, 2024 Team Status: Inactive Member Role/Relationship Status Dates Miryampoonam Kimballhof , ORTHOD[employer]IC BAND MAKER-C Primary Care Provider Active Start: October 12, 2024 End: October 12, 2024 Dr. Alexis Friend MD Attending Provider Active Sta rt: October 12, 2024 End: October 12, 2024 Dr. Alexis Friend MD Emergency Provider Active Sta rt: October 12, 2024 End: October 12, 2024 Team Status: Inactive Member Role/Relationship Status Dates Miryam Orozco , ORTHOD[employer]IC BAND MAKER-C Primary Care Provider Active Start: October 14, 2024 End: October 14, 2024 Miryampoonam Orozco , ORTHOD[employer]IC BAND MAKER-C Referring Provider Active Start: October 14, 2024 End: October 14, 2024 Dr. William Cruz DO Attending Provider Active Start: October 14, 2024 End: October 14, 2024 Team Status: Active Member Role/Relationship Status Dates Miryam Orozco , [employer]THOD[employer]IC BAND MAKER-C Primary Care Provider Active Start: October 14, 2024 Miryam Orozco , ORTHOD[employer]IC BAND MAKER-C Referring Provider Active Start: October 14, 2024 Dr. William Cruz DO Attending Provider Active Start: October 14, 2024 Dr. William Cruz DO Other Provider Active St art: October 14, 2024 Team Status: Active Member Role/Relationship Status Dates Miryam Orozco , ORTHOD[employer]IC BAND MAKER-C Primary Care Provider Active Start: October 24, 2024 Dr. Gonzalo Lomax MD Attending Provider Active Start: October 24, 2024 Dr. Gonzalo Lomax MD Referring Provider Active Start: October 24, 2024 Team Status: Active Member Role/Relationship Status Dates Miryam Orozco , ORTHOD[employer]IC BAND MAKER-C Primary Care Provider Active Start: October 25, 2024 Dr. Gonzalo Lomax MD Attending Provider Active Start: October 25, 2024 Dr. Gonzalo Lomax MD Referring Provider Active Start: October 25, 2024 Dr. Gonzalo Lomax MD Other Provider Active Star t: October 25, 2024 Team Status: Inactive Member Role/Relationship Status Dates Miryam Orozco , ORTHOD[employer]IC BAND MAKER-C Primary Care Provider Active Start: October 25, 2024 End: October 25, 2024 Miryam Orozco , ORTHOD[employer]IC BAND MAKER-C Referring Provider Active Start: October 25, 2024 End: October 25, 2024 Dr. Norberto Jackson MD Attending Provider Active S tart: October 25, 2024 End: October 25, 2024 Team Status: Active Member Role/Relationship Status Dates Dr. Lizy Capone MD Primary Care Provider Active Team Status: Active Member Role/Relationship Status Dates Miryam Orozoc [employer]THOD[employer]IC BAND MAKER-C Primary Care Provider Active Start: July 04, 2024 Gustavo MANZO MD Attending Provider Active Start: July 04, 2024 Team Status: Active Member Role/Relationship Status Dates Miryam Orozco ORTHOD[employer]IC BAND MAKER-C Primary Care Provider Active Start: July 11, 2024 Gustavo MANZO MD Attending Provider Active Start: July 11, 2024 Gustavo MANZO MD Referring Provider Active Start: July 11, 2024 Team Status: Active Member Role/Relationship Status Dates Miryam Orozco , ORTHOD[employer]IC BAND MAKER-C Primary Care Provider Active Start: July 18, 2024 Gustavo MANZO MD Attending Provider Active Start: July 18, 2024 Team Status: Inactive Member Role/Relationship Status Dates Miryam Orozco , ORTHOD[employer]IC BAND MAKER-C Primary Care Provider Active Start: July 20, 2024 End: July 20, 2024 Minna Villarreal NP, ORTHOD[employer]IC BAND MAKER-C Attending Provider Active Start: July 20, 2024 End: July 20, 2024 Team Status: Active Member Role/Relationship Status Dates Miryam Orozco ORTHOD[employer]IC BAND MAKER-C Primary Care Provider Active Start: July 25, 2024 Gustavo MANZO MD Attending Provider Active Start: July 25, 2024 Team Status: Inactive Member Role/Relationship Status Dates Miryam Orozco , ORTHOD[employer]IC BAND MAKER-C Primary Care Provider Active Start: July 29, 2024 End: July 29, 2024 Dr. Jean Paul Ha DO Attending Provider Active Start : July 29, 2024 End: July 29, 2024 Dr. Jean Paul Ha DO Emergency Provider Active Start : July 29, 2024 End: July 29, 2024 Team Status: Active Member Role/Relationship Status Dates Miryam Orozco ORTHOD[employer]IC BAND MAKER-C Primary Care Provider Active Start: August 01, 2024 Gustavo MANZO MD Attending Provider Active Start: August 01, 2024 Gustavo MANZO MD Referring Provider Active Start: August 01, 2024 Team Status: Active Member Role/Relationship Status Dates Miryam Orozco , ORTHOD[employer]IC BAND MAKER-C Primary Care Provider Active Start: August 08, 2024 Gustavo MANZO MD Attending Provider Active Start: August 08, 2024 Team Status: Inactive Member Role/Relationship Status Dates Miryam Orozco , ORTHOD[employer]IC BAND MAKER-C Primary Care Provider Active Start: August 12, 2024 End: August 12, 2024 Miryam Orozco , ORTHOD[employer]IC BAND MAKER-C Referring Provider Active Start: August 12, 2024 End: August 12, 2024 Dr. Gonzalo Lomax MD Attending Provider Active Start: August 12, 2024 End: August 12, 2024 Team Status: Active Member Role/Relationship Status Dates Miryam Orozco ORTHOD[employer]IC BAND MAKER-C Primary Care Provider Active Start: August 15, 2024 Dr. Gonzalo Lomax MD Attending Provider Active Start: August 15, 2024 Dr. Gonzalo Lomax MD Referring Provider Active Start: August 15, 2024 Dr. Gonzalo Lomax MD Other Provider Active Star t: August 15, 2024 Team Status: Active Member Role/Relationship Status Dates Miryam Orozco , ORTHOD[employer]IC BAND MAKER-C Primary Care Provider Active Start: August 16, 2024 Gustavo MANZO MD Attending Provider Active Start: August 16, 2024 Team Status: Active Member Role/Relationship Status Dates Miryam Orozco , ORTHOD[employer]IC BAND MAKER-C Primary Care Provider Active Start: August 18, 2024 Gustavo MANZO MD Attending Provider Active Start: August 18, 2024 Team Status: Active Member Role/Relationship Status Dates Miryam Orozco , ORTHOD[employer]IC BAND MAKER-C Primary Care Provider Active Start: August 22, 2024 Gustavo MANZO MD Attending Provider Active Start: August 22, 2024 Gustavo MANZO MD Referring Provider Active Start: August 22, 2024 Team Status: Active Member Role/Relationship Status Dates Miryam Orozco , ORTHOD[employer]IC BAND MAKER-C Primary Care Provider Active Start: August 22, 2024 Dr. Gonzalo Lomax MD Attending Provider Active Start: August 22, 2024 Dr. Gonzalo Lomax MD Referring Provider Active Start: August 22, 2024 Dr. Gonzalo Lomax MD Other Provider Active Star t: August 22, 2024 Team Status: Inactive Member Role/Relationship Status Dates Miryam Orozco , ORTHOD[employer]IC BAND MAKER-C Primary Care Provider Active Start: September 01, 2024 End: September 03, 2024 Dr. Gonzalo Lomax MD Attending Provider Active Start: September 01, 2024 End: September 03, 2024 Dr. Gonzalo Lomax MD Referring Provider Active Start: September 01, 2024 End: September 03, 2024 Team Status: Active Member Role/Relationship Status Dates Miryam Orozco , ORTHOD[employer]IC BAND MAKER-C Primary Care Provider Active Start: September 01, 2024 Dr. Gonzalo Lomax MD Attending Provider Active Start: September 01, 2024 Dr. Gonzalo Lomax MD Referring Provider Active Start: September 01, 2024 Dr. Gonzalo Lomax MD Other Provider Active Star t: September 01, 2024 Team Status: Inactive Member Role/Relationship Status Dates Miryam Jigarhof , ORTHOD[employer]IC BAND MAKER-C Primary Care Provider Active Start: September 05, 2024 End: September 05, 2024 Miryampoonam Kimballhof , ORTHODONTIC BAND MAKER-C Referring Provider Active Start: September 05, 2024 End: September 05, 2024 Dr. Mehdi Womack MD Attending Provider Active Start: September 05, 2024 End: September 05, 2024 Team Status: Inactive Member Role/Relationship Status Dates Miryampoonam Kimballhopat , ORTHODONTIC BAND MAKER-C Primary Care Provider Active Start: September 06, 2024 End: September 06, 2024 Dr. Gonzalo Lomax MD Attending Provider Active Start: September 06, 2024 End: September 06, 2024 Dr. Gonzalo Lomax MD Referring Provider Active Start: September 06, 2024 End: September 06, 2024 Team Status: Active Member Role/Relationship Status Dates Miryampoonam Serraf , ORTHODONTIC BAND MAKER-C Primary Care Provider Active Start: September 06, 2024 Dr. Gonzalo Lomax MD Attending Provider Active Start: September 06, 2024 Dr. Gonzalo Lomax MD Referring Provider Active Start: September 06, 2024 Dr. Gonzalo Lomax MD Other Provider Active Star t: September 06, 2024 Team Status: Active Member Role/Relationship Status Dates Miryampoonam Kimballhopat , ORTHODONTIC BAND MAKER-C Primary Care Provider Active Start: September 12, 2024 Dr. Gonzalo Lomax MD Attending Provider Active Start: September 12, 2024 Dr. Gonzalo Lomax MD Referring Provider Active Start: September 12, 2024 Dr. Gonzalo Lomax MD Other Provider Active Star t: September 12, 2024 Team Status: Inactive Member Role/Relationship Status Dates Miryampoonam Kimballhopat , ORTHODONTIC BAND MAKER-C Primary Care Provider Active Start: September 19, 2024 End: October 03, 2024 Dr. Gonzalo Lomax MD Attending Provider Active Start: September 19, 2024 End: October 03, 2024 Dr. Gonzalo Lomax MD Referring Provider Active Start: September 19, 2024 End: October 03, 2024 Team Status: Active Member Role/Relationship Status Dates Miryam Orozco ORTHODONTIC BAND MAKER-C Primary Care Provider Active Start: September 20, 2024 Dr. Gonzalo Lomax MD Attending Provider Active Start: September 20, 2024 Dr. Gonzalo Lomax MD Referring Provider Active Start: September 20, 2024 Dr. Gonzalo Lomax MD Other Provider Active Star t: September 20, 2024 Team Status: Inactive Member Role/Relationship Status Dates Miryam Orozco ORTHOD[employer]IC BAND MAKER-C Primary Care Provider Active Start: September 28, [...] Active Member Role/Relationship Status Dates Miryam Orozco ORTHOD[employer]IC BAND MAKER-C Primary Care Provider Active Start: September 29, [...] Active Member Role/Relationship Status Dates Miryam Orozco ORTHOD[employer]IC BAND MAKER-C Primary Care Provider Active Start: September 30, [...] Inactive Member Role/Relationship Status Dates Miryam Orozco ORTHOD[employer]IC BAND MAKER-C Primary Care Provider Active Start: October 04, 2024 Dr. Chayo Hernandez MD Attending Provider Active Start: October 04, 2024 Team Status: Active Member Role/Relationship Status Dates Miryam Orozco ORTHODONTIC BAND MAKER-C Primary Care Provider Active Start: October 04, [...] Inactive Member Role/Relationship Status Dates Miryam Orozco ORTHODONTIC BAND MAKER-C Primary Care Provider Active Start: October 04, [...] Member Role/Relationship Status Dates Miryam Orozco , ORTHOD[employer]IC BAND MAKER-C Primary Care Provider Active Start: October 10, 2024 Dr. Gonzalo Lomax MD Attending Provider Active Start: October 10, 2024 Dr. Gonzalo Lomax MD Referring Provider Active Start: October 10, 2024 Dr. Gonzalo Lomax MD Other Provider Active Star t: October 10, 2024 Team Status: Inactive Member Role/Relationship Status Dates Miryampoonam Kimballhopat , ORTHODONTIC BAND MAKER-C Primary Care Provider Active Start: October 11, 2024 End: October 11, 2024 Dr. Gautam Hardy MD Attending Provider Active Start: October 11, 2024 End: October 11, 2024 Dr. Gautam Hardy MD Referring Provider Active Start: October 11, 2024 End: October 11, 2024 Team Status: Active Member Role/Relationship Status Dates Miryampoonam Kimballhof , ORTHOD[employer]IC BAND MAKER-C Primary Care Provider Active Start: October 11, 2024 Dr. Russell Gonzalez MD Attending Provider Active S tart: October 11, 2024 Team Status: Inactive Member Role/Relationship Status Dates Miryampoonam Kimballhof , ORTHOD[employer]IC BAND MAKER-C Primary Care Provider Active Start: October 12, 2024 End: October 12, 2024 Dr. Alexis Friend MD Attending Provider Active Sta rt: October 12, 2024 End: October 12, 2024 Dr. Alexis Friend MD Emergency Provider Active Sta rt: October 12, 2024 End: October 12, 2024 Team Status: Inactive Member Role/Relationship Status Dates Miryampoonam Kimballhof , ORTHODONTIC BAND MAKER-C Primary Care Provider Active Start: October 14, 2024 End: October 14, 2024 Miryam Orozco , ORTHODONTIC BAND MAKER-C Referring Provider Active Start: October 14, 2024 End: October 14, 2024 Dr. William Cruz DO Attending Provider Active Start: October 14, 2024 End: October 14, 2024 Team Status: Active Member Role/Relationship Status Dates Miryampoonam Orozco , ORTHODONTIC BAND MAKER-C Primary Care Provider Active Start: October 14, 2024 Miryam Orozco , ORTHODONTIC BAND MAKER-C Referring Provider Active Start: October 14, 2024 Dr. William Cruz DO Attending Provider Active Start: October 14, 2024 Dr. William Cruz DO Other Provider Active St art: October 14, 2024 Team Status: Active Member Role/Relationship Status Dates Miryam Orozco ORTHODONTIC BAND MAKER-C Primary Care Provider Active Start: October 24, 2024 Dr. Gonzalo Lomax MD Attending Provider Active Start: October 24, 2024 Dr. Gonzalo Lomax MD Referring Provider Active Start: October 24, 2024 Team Status: Active Member Role/Relationship Status Dates Miryam Orozco ORTHODONTIC BAND MAKER-C Primary Care Provider Active Start: October 25, 2024 Dr. Gonzalo Lomax MD Attending Provider Active Start: October 25, 2024 Dr. Gonzalo Lomax MD Referring Provider Active Start: October 25, 2024 Dr. Gonzalo Lomax MD Other Provider Active Star t: October 25, 2024 Team Status: Inactive Member Role/Relationship Status Dates Miryam Orozco ORTHODONTIC BAND MAKER-C Primary Care Provider Active Start: October 25, 2024 End: October 25, 2024 Miryam Orozco ORTHODONTIC BAND MAKER-C Referring Provider Active Start: October 25, 2024 [...] October 26, 2024 End: October 26, 2024 Collar Closer Lockstitch Relationship Specialty Start Date End Date Lizy Capone MD [address] [place], [place] [id number] PCP - General 11/15/08 Mulugeta Jennings, NANCI.ACCOUNTANT [address] [place], [place] [id number] Transition Assistant Family Medicine 03/22/24 Goals (unrecognized section and [...] dose, On Thu05/18/23 at [address] [facility] 05/18/2023 1:26 PM EST 200 mg methylPREDNISolone acetate 40 mg injection (DEPO-Medrol) 40 mg, OTHER, ONCE, 1 dose, On Thu05/18/23 at [address] [facility] 05/18/2023 1:26 PM EST 40 mg Inactive Administered Medications - up to 3 most recent administrations Medication Order MAR Action Action Date Dose Rate Site 0.9% NaCl 10 mL flush 10 mL, OTHER, ONCE, 1 dose, On Thu07/15/23 at [address] [facility] 07/15/2023 9:10 AM EDT 10 mL bupivacaine(PF) 0.75 % (7.5 mg/mL) 7.5 mg injection (MARCAINE PF) 7.5 mg, OTHER, ONCE, 1 dose, On Thu07/15/23 at [address] [facility] 07/15/2023 9:10 AM EDT 7.5 mg lidocaine (PF) 20 mg/mL (2 %) 200 mg injection (XYLOCAINE) 200 mg, OTHER, ONCE, 1 dose, On Thu07/15/23 at [address] [facility] 07/15/2023 9:10 AM EDT 200 mg methylPREDNISolone acetate 40 mg injection (DEPO-Medrol) 40 mg, OTHER, ONCE, 1 dose, On Thu07/15/23 at [address] [facility] 07/15/2023 9:10 AM EDT 40 mg INFORMATION SOURCE (unrecogn ized section and content) DATE CREATED AUTHOR 12/19/2023 [facility] DATE CREATED AUTHOR AUTHOR'S ORGANIZ ATION 05/11/2024 [facility] DATE CREATED AUTHOR AUTHOR'S ORGANIZ ATION 05/22/[address] [facility] DATE CREATED AUTHOR AUTHOR'S ORGANIZ ATION 10/27/2024 [facility] DATE CREATED AUTHOR AUTHOR'S ORGANIZ ATION 10/28/2024 [facility] FOR RECORDS PERTAINING TO PATIENTS WHO [...] BE BASED ON THE PRIMARY CLINICAL RECORDS. [facility] [employer] [facility]. provides no warranty or guarantee of the accuracy or completeness of information in this document.
--- NOTE | 2024-10-29 09:16 | CASEMGMT ---
Social Work SW did receive notification from the home health SW that she was working on getting pt to [facility], and It does seem from the home health SW note that they may take her. SW reviewed chart and pt left TCU earlier this month. It appears pt may only have about 6 days of her SNF benefit left. SW did meet w/pt briefly, however pt very sleepy at this moment and not able to have a full conversation. Pt is agreeable to SW sending a referral to [facility]. SW will speak w/pt at a later time when she is more awake about cost. SW will also start the referral process to [facility] later today. SW will continue to follow. JONA Blakely
[2024-10-29] MEDS: APIXABAN 2.5 MG TABLET (WCH) PO ×2 (09:29→21:29)
[2024-10-29] MEDS: Cholecalciferol (VIT D3) 25 MCG TABLET (1,000 UNITS) 50 MCG PO (09:30)
[2024-10-29] MEDS: Lidocaine 5% Patch 1 PATCH TOPICAL (09:33)
[2024-10-29] MEDS: Polyethylene Glycol 3350 17 GM PACKET PO (09:33)
[2024-10-29] MEDS: Senna/Docusate Sodium 1 Tablet 2 TABLET PO ×2 (09:36→21:30)
--- NOTE | 2024-10-29 12:43 | CASEMGMT ---
Social Work SW met w/pt in room in regard to prior level of function and anticipated discharge plan. PCP: [facility] Specialists: Manuel, government documents librarian; Monie, plastic; Ambrocio, clinical cytogeneticist scientist; Mary, urologist; Homer, neurologist; Preferred Pharmacy[facility] Insurance: MCR, MCR supplement Prescription Benefit: yes Living Will/HPOA: yes, son Aime Vega, POA, Mellisa Sawyer is the alternate. POA documents on the chart LNOK: son Living Arrangements: Patient lives with friend Cayla in a 2 story home with 5 steps and railing or stair lift to enter. Pt was in TCU recently and had been managing at home up until a few days ago. Pt states she normally does the cooking, Cayla does the cleaning. Pt states she was not able to get out of bed, could not care for herself. Normally gets around with a walker. Transportation: Cayla [facility]: Patient has shower chair, cane, lift chair, grab bars, walker, rollator, wheelchair at home. Patient has previously been to , TCU and [facility]. Pt had [facility] prior to hospital stay. Plan: Pt agreeable to referral to [facility], does not require a senior living list at this time. She is aware that Adriana from [facility] was working on this from home and agreeable. SAMIR spoke w/her about how it would be covered as this SW calculates pt has about 6 days left w/her SNF benefit. Pt seemed unaware of this, states has insurance through [employer] that should cover the cost. She is unaware if [facility] has this information. SAMIR explained will start the referral process today, and follow up on Thursday. SAMIR did email Adriana from [facility] to inquire if [facility] aware of pt having senior care insurance. SAMIR will send initial referral to [facility] later today. JONA Blakely
--- NOTE | 2024-10-29 16:34 | CASEMGMT ---
Social Work SW did send the initial referral to [facility] via [facility]. SW to follow up on Thursday. JONA Blakely
--- NOTE | 2024-10-29 18:00 | CASEMGMT ---
KEVIN MALONE readmission note: Index admission: 09/28-10/04: Encephalopathy, JOSE on CKD, hyperkalemia. Pt dc'd to TCU 10/04. Pt on TCU 10/04-10/20. Pt dc'd home 10/20 w/[facility]. Pt dc'd w/several Rx's that were sent to [facility] retail pharmacy. Current admission: 10/29. Admit from home w/dx: CHF exacerbation, debility. KEVIN MALONE to room to discuss readmission. Introduced self and role. Pt lives w/a friend, who assists w/medication mgnt. Pt states she has been taking her medications as prescribed @ discharge from TCU. She also states she did f/u with her PCP, Dr Capone, after d/c from TCU. Pt was doing well @ home up until a couple days prior to arrival to ED 10/29. [facility] had been working on placement @ [facility], but pt had increase in weakness and unable to ambulate or care for self. See SAMIR Herbert, notes 10/29 re: discharge planning. Janene CUMMINGS RN, CM
[2024-10-29] MEDS: MELATONIN 3 MG TABLET PO (21:33)
[2024-10-29] MEDS: 0.9% Saline Lock 10 ML Syringe IV (21:33)
[2024-10-30 02:46] VITALS: BP 123/85; PULSE 85; RESP 15; TEMP 35.9; O2SAT 93
[2024-10-30 03:00] VITALS: PULSE 88
[2024-10-30 05:50] LABS: Hematocrit 29.4 % (37-47); Hemoglobin 8.7 g/dL (12.0-15.0); Immature Granulocytes Count 0.010 X10^3/uL (0.0-0.0); Mean Corp Hgb Conc 29.6 g/dL (32-36); Mean Corpuscular Volume 111.4 fL (81-99); Mean Platelet Vol. 13.1 fl (6.2-12.0); NRBC Flagged by Analyzer 0 % (0-5); Platelet Count 184 K/mm3 (150-450); RBC Distribution Width CV 15.2 % (11.6-14.6); RBC Distribution Width SD 60.9 fl (35.1-43.9); Red Blood Count 2.64 M/mm3 (4.2-5.4); White Blood Count 4.7 K/mm3 (4.4-11.0)
[2024-10-30 06:10] LABS: Anion Gap 14 (5-15); BUN 67 mg/dL (4-19); BUN/Creat Ratio 20.6 RATIO (10-20); Calcium,Total 7.7 mg/dL (7.6-11.0); Carbon Dioxide 19.6 mmol/L (21.0-32.0); Chloride 107 mmol/L (98-108); Estimated Creatinine Clearance 16.57 ml/min (50-250); Glucose 89 mg/dL (70-99); Potassium 4.4 mmol/L (3.3-5.1)
[2024-10-30 08:57] VITALS: BP 93/58; PULSE 96; RESP 17; TEMP 36.6; O2SAT 94
[2024-10-30] MEDS: Polyethylene Glycol 3350 17 GM PACKET PO (09:00)
[2024-10-30] MEDS: Cholecalciferol (VIT D3) 25 MCG TABLET (1,000 UNITS) 50 MCG PO (09:01)
[2024-10-30] MEDS: Senna/Docusate Sodium 1 Tablet 2 TABLET PO ×2 (09:02→22:14)
[2024-10-30] MEDS: Lidocaine 5% Patch 1 PATCH TOPICAL (09:03)
[2024-10-30] MEDS: APIXABAN 2.5 MG TABLET (WCH) PO ×2 (09:03→22:15)
--- NOTE | 2024-10-30 09:05 | PN.HOSP_ITS ---
Subjective Subjective Doing well, no issues overnight Objective Data Objective Data Vital Signs: Vital Signs Temp Pulse Resp BP Pulse Ox O2 Del Method 98 F 96 17 93/58 L 94 Room Air 10/30/24 08:57 10/30/24 08:57 10/30/24 08:57 10/30/24 08:57 10/30/24 08:57 10/30/24 08:57 Oxygen Delivery Method Room Air Weight: 265 lb 3.457 oz Body Mass Index (BMI) 48.4 Intake & Output: Intake and Output for Last 24 Hours 10/29/24 10/30/24 10/31/24 03:59 03:59 03:59 Intake Total 600 / 600 Output Total 2200 / 2200 250 / 250 Balance -1600 / -1600 -250 / -250 Lab / Micro Data 10/30/24 05:17 10/30/24 05:17 Labs: Laboratory Results - last 24 hr 10/30/24 05:17: WBC 4.7, RBC 2.64 L, Hgb 8.7 L, Hct 29.4 L, MCV 111.4 H, MCH 33.0 H, MCHC 29.6 L, RDW Std Deviation 60.9 H, RDW Coeff of Parris 15.2 H, Plt Count 184, MPV 13.1 H, Immature Gran % (Auto) 0.200, Neut % (Auto) 43.6 L, Lymph % (Auto) 39.6, Rooks % (Auto) 10.2 H, Eos % (Auto) 5.5 H, Baso % (Auto) 0.9, Absolute Neuts (auto) 2.1, Absolute Lymphs (auto) 1.86, Nucleated RBC % 0, Sodium 140, Potassium 4.4, Chloride 107, Carbon Dioxide 19.6 L, Anion Gap 14, B UN 67 H, Creatinine 3.23 H, Estim Creat Clear Calc 16.57 L, Est GFR (MDRD) Non- Af 14 L, BUN/Creatinine Ratio 20.6 H, Glucose 89, Calcium 7.7 Physical Exam Narrative General: Alert, Oriented x3, Cooperative, No apparent distress HEENT: Atraumatic, PERRLA, EOMI, Normocephalic Oral: Moist Mucosa Neck: Supple, No JVD Lungs: Diminished, Normal air movement, No rhonchi, No wheeze, No rales Cardiovascular: Regular rate, Regular Rhythm, Normal S1, Normal S2, No murmurs Abdomen: Soft, Non Tender, Non-Distended, No Hepato-splenomegaly Extremities: Edema, Capillary Refill Less than 3 Seconds Skin: Bilateral leg wounds currently dressed Musculoskeletal: No Tenderness to Palpation of Joints or Extremities Neurological: No focal neurological deficits, moves all extremities Psych/Mental Status: Flat Assessment & Plan Assessment/Plan (1) (HFpEF) heart failure with preserved ejection fraction: (2) Open leg wound: (3) Debility: (4) Tremulousness: PLAN: Plan 1. Debility and inability to complete ADLs ? PT/OT ? She was recently discharged from the transitional care unit ? Plan we will try to get her placed from home however she became too weak ? This is likely complicated by her history of heart failure as well as bilateral open wounds and lower extremity edema 2. Acute on chronic diastolic CHF/essential HTN/HLD/paroxysmal A-fib ? Continue with Eliquis ? Continue with her home blood pressure medications ? Continue with IV Lasix, she likely has a mild exacerbation as she is not requiring any oxygen but she does have lower extremity edema ? Will monitor her renal function closely 3. Bilateral leg wounds ? She has been seen plastic surgery in the wound care center ? She was given 5 days of doxycycline on 10/26/2024, will continue 4. Hypothyroidism ? Stable ? Continue Synthroid 5. Chronic pain ? She is on gabapentin and oxycodone ? Given her CKD 4, will hold her gabapentin DVT: Eliquis Charges/Coding Visit Charges Inpatient E&M: 43102 Subs Hosp L2
[2024-10-30 13:15] VITALS: BP 107/65; PULSE 109; RESP 17; TEMP 36.6; O2SAT 94
[2024-10-30] MEDS: 0.9% Saline Lock 10 ML Syringe IV ×2 (13:18→18:19)
[2024-10-30 18:11] VITALS: BP 106/60; PULSE 106; RESP 17; TEMP 36.6; O2SAT 99
[2024-10-30 22:12] VITALS: BP 151/105; PULSE 87; RESP 18; TEMP 36.1; O2SAT 95
[2024-10-30] MEDS: MELATONIN 3 MG TABLET PO (22:14)
[2024-10-31 04:22] VITALS: BP 124/71; PULSE 84; RESP 18; TEMP 36.1
[2024-10-31 06:02] LABS: Hematocrit 27.8 % (37-47); Hemoglobin 8.5 g/dL (12.0-15.0); Immature Granulocytes Count 0.010 X10^3/uL (0.0-0.0); Mean Corp Hgb Conc 30.6 g/dL (32-36); Mean Corpuscular Volume 107.8 fL (81-99); Mean Platelet Vol. 12.9 fl (6.2-12.0); NRBC Flagged by Analyzer 0 % (0-5); Platelet Count 181 K/mm3 (150-450); RBC Distribution Width CV 15.1 % (11.6-14.6); RBC Distribution Width SD 58.4 fl (35.1-43.9); Red Blood Count 2.58 M/mm3 (4.2-5.4); White Blood Count 5.2 K/mm3 (4.4-11.0)
[2024-10-31 07:15] LABS: Anion Gap 13 (5-15); BUN 68 mg/dL (4-19); BUN/Creat Ratio 21.3 RATIO (10-20); Calcium,Total 7.9 mg/dL (7.6-11.0); Carbon Dioxide 22.8 mmol/L (21.0-32.0); Chloride 108 mmol/L (98-108); Estimated Creatinine Clearance 16.68 ml/min (50-250); Glucose 94 mg/dL (70-99); Potassium 4.5 mmol/L (3.3-5.1)
--- NOTE | 2024-10-31 08:23 | PCM.PN.HOSP ---
Subjective Subjective Doing well, no issues overnight. Not getting much sleep and would like something different than melatonin tonight Objective Data Objective Data Vital Signs: Vital Signs Temp Pulse Resp BP Pulse Ox O2 Del Method 96.9 F L 84 18 124/71 H 95 Room Air 10/31/24 04:22 10/31/24 04:22 10/31/24 04:22 10/31/24 04:22 10/30/24 22:12 10/31/24 02:35 Oxygen Delivery Method Room Air Weight: 265 lb 3.457 oz Body Mass Index (BMI) 48.4 Intake & Output: Intake and Output for Last 24 Hours 10/30/24 10/31/24 11/01/24 03:59 03:59 03:59 Intake Total 600 / 600 1200 / 1200 120 / 120 Output Total 2200 / 2200 2600 / 2600 400 / 400 Balance -1600 / -1600 -1400 / -1400 -280 / -280 Lab / Micro Data 10/31/24 05:47 10/31/24 05:47 Labs: Laboratory Results - last 24 hr 10/31/24 05:47: WBC 5.2, RBC 2.58 L, Hgb 8.5 L, Hct 27.8 L, MCV 107.8 H, MCH 32.9 H, MCHC 30.6 L, RDW Std Deviation 58.4 H, RDW Coeff of Parris 15.1 H, Plt Count 181, MPV 12.9 H, Immature Gran % (Auto) 0.200, Neut % (Auto) 49.7, Lymph % (Auto) 34.9, [place] % (Auto) 9.8, Eos % (Auto) 4.6, Baso % (Auto) 0.8, Absolute Neuts (auto) 2.6, Absolute Lymphs (auto) 1.82, Nucleated RBC % 0, Sodium 144, Potassium 4.5, Chloride 108, Carbon Dioxide 22.8, Anion Gap 13, BUN 68 H, Creatinine 3.21 H, Estim Creat Clear Calc 16.68 L, Est GFR (MDRD) Non-Af 14 L, BUN/Creatinine Ratio 21.3 H, Glucose 94, Calcium 7.9 Physical Exam Narrative General: Alert, Oriented x3, Cooperative, No apparent distress HEENT: Atraumatic, PERRLA, EOMI, Normocephalic Oral: Moist Mucosa Neck: Supple, No JVD Lungs: Diminished, Normal air movement, No rhonchi, No wheeze, No rales Cardiovascular: Regular rate, Regular Rhythm, Normal S1, Normal S2, No murmurs Abdomen: Soft, Non Tender, Non-Distended, No Hepato-splenomegaly Extremities: Edema, Capillary Refill Less than 3 Seconds Skin: Bilateral leg wounds currently dressed Musculoskeletal: No Tenderness to Palpation of Joints or Extremities Neurological: No focal neurological deficits, moves all extremities Psych/Mental Status: Normal affect, tired Assessment & Plan Assessment/Plan (1) (HFpEF) heart failure with preserved ejection fraction: (2) Open leg wound: (3) Debility: (4) Tremulousness: PLAN: Plan 1. Debility and inability to complete ADLs ? PT/OT ? She was recently discharged from the transitional care unit ? Her family tried to get her placed from home however she became too weak ? This is likely complicated by her history of heart failure as well as bilateral open wounds and lower extremity edema 2. Acute on chronic diastolic CHF/essential HTN/HLD/paroxysmal A-fib ? Continue with Eliquis ? Continue with her home blood pressure medications ? Continue with IV Lasix, she likely has a mild exacerbation as she is not requiring any oxygen but she does have lower extremity edema ? Will monitor her renal function closely 3. Bilateral leg wounds ? She has been seen plastic surgery in the wound care center ? She was given 5 days of doxycycline on 10/26/2024, will continue 4. Hypothyroidism ? Stable ? Continue Synthroid 5. Chronic pain ? She is on gabapentin and oxycodone ? Given her CKD 4, will hold her gabapentin DVT: Eliquis Charges/Coding Visit Charges Inpatient E&M: 48568 Subs Hosp L2
--- NOTE | 2024-10-31 10:07 | CASEMGMT ---
Addendum entered by Piedad Posey 10/31/24 11:18: Social Work SW still working out w/[facility] when [facility] can take pt, they had said pt needs a 3 day stay, however pt was her inpt 09/28-10/04 and in TCU 10/04-10/20. [facility] also saying pt would need to private pay until her group home care insurance kicks in. SW let them know about the recent 3 day stay within 30 days, and trying to get clarification on if pt would need to pay anything now or if they will work this out w/pt when she gets there--and also the cost. SW spoke w/pt, explained waiting on the answers above. SW also inquired w/pt if she has a seizure disorder. She states no, she had 3 seizures in April due to sepsis. She followed up w/the neurologist but was told the chances of her having another seizure are one in a million, and took her off of the seizure medication. SW completed the PAS/RR and reflected this in the PAS/RR. Pt also denies any history of any mental health diagnoses. SW will continue to follow. JONA Blakely Original Note: Social Work Updates sent to [facility] through [facility] this morning. [facility] stating they are discussing pt in the morning meeting and inquiring if pt is in the hospital. SW responded that yes, pt is in the hospital, inquired if they can access the information SW sent. SW will await response. JONA Blakely
[2024-10-31 10:19] VITALS: BP 104/65; PULSE 93; RESP 18; TEMP 36.4; O2SAT 92
[2024-10-31] MEDS: APIXABAN 2.5 MG TABLET (WCH) PO ×2 (10:26→21:25)
[2024-10-31] MEDS: Lidocaine 5% Patch 1 PATCH TOPICAL (10:27)
[2024-10-31] MEDS: Senna/Docusate Sodium 1 Tablet 2 TABLET PO ×2 (10:27→21:27)
[2024-10-31] MEDS: Polyethylene Glycol 3350 17 GM PACKET PO (10:28)
[2024-10-31] MEDS: Cholecalciferol (VIT D3) 25 MCG TABLET (1,000 UNITS) 50 MCG PO (10:28)
[2024-10-31] MEDS: 0.9% Saline Lock 10 ML Syringe IV ×2 (10:29→17:31)
--- NOTE | 2024-10-31 11:37 | WOUNDNOTE ---
wound photo: right thigh
--- NOTE | 2024-10-31 11:38 | WOUNDNOTE ---
wound photo: right medial suresh
--- NOTE | 2024-10-31 14:20 | CASEMGMT ---
Social Work Pt's friend Mellisa came in, brought pt's prison policy. SW explained will pass it on to [facility]. SAMIR then spoke w/Carolynn at [facility], she states pt can come under her days that are left under Medicare, and they will work out the cost when pt is there. They do not need any payment prior to pt getting to [facility]. [facility] will have a bed for pt tomorrow. She is fine w/the terminal computer operator policy being included in the discharge packet. SW let pt know this information, also did let her know the cost of $308/day, and gave her Carolynn's number should she have any additional questions. SAMIR will follow up tomorrow for d/c to [facility]. JONA Blakely
--- NOTE | 2024-10-31 15:34 | CHAPLAIN ---
Type of Pastoral Visit _x__ Initial Visit ___ Follow-up Visit ___ On-call Visit ___ General Patient Visit ___ Spiritual Assessment ___ Family Conference ___ Bereavement ___ Rapid Response ___ Code Blue ___ Other (describe below) Pastoral Care Referral From _x__ Patient ___ Family ___ Nurse ___ Physician ___ E Commerce Director ___ Back Digger Operator ___ Other (describe below) Sacrament/Intervention _x__ Active listening ___ Anointing ___ Jain ___ Bereavement ___ Communion ___ Jade exploration ___ ___ Life review _x__ Prayer ___ Reconciliation ___ Sacrament of Sick __x_ Supportive presence ___ Wedding ___ Other (describe below) Pastoral Comments patient is a repeat; pt acknowledges the spiritual care support she receives and appreciates; pt is usually brief and to the point about her situation and her future plans; pt expects to have prayer support as again today; 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
[2024-10-31 15:57] VITALS: BP 101/50; PULSE 84; RESP 14; TEMP 36.6; O2SAT 96
[2024-10-31 21:23] VITALS: BP 125/71; PULSE 128; RESP 18; TEMP 36.2; O2SAT 98
[2024-10-31 23:00] VITALS: PULSE 85
[2024-11-01 03:22] VITALS: BP 115/85; PULSE 73; RESP 16; TEMP 36.6; O2SAT 95
[2024-11-01 08:01] LABS: Anion Gap 14 (5-15); BUN 66 mg/dL (4-19); BUN/Creat Ratio 21.6 RATIO (10-20); Calcium,Total 8.3 mg/dL (7.6-11.0); Carbon Dioxide 22.5 mmol/L (21.0-32.0); Chloride 105 mmol/L (98-108); Estimated Creatinine Clearance 17.61 ml/min (50-250); Glucose 82 mg/dL (70-99); Potassium 4.3 mmol/L (3.3-5.1)
--- NOTE | 2024-11-01 09:03 | PCM.TXEXTCAR ---
Diet Diet Order/Speech Therapy: INPATIENT Hospital Diet / Speech Therapy Order(s) 10/29/24 06:48 Diet: Cardiac - Heart Healthy Food consistency:: Regular Liquid Consistency:: Regular/Thin Fluid restriction:: 1500 mL Routine Orders/Code Status Routine Lab Work: CBC and BMP Code Status: DNRCC-A DC O2, CPAP, BIPAP needs Home O2 Discharge instructions: No Wound(s) right knee: Wound Type: Skin Tear right hip: Wound Type: skin graft donor site right suresh: Wound Type: traumatic wound Dressing Change: Aquacel Extra right thigh: Wound Type: donor site with small open skin tear Dressing Change: Adaptic Therapies Physical Therapy: Eval and Treat Occupational Therapy: Eval and Treat Problem/Diagnosis (1) (HFpEF) heart failure with preserved ejection fraction: Status: Acute Code(s): I50.30 - Unspecified diastolic (congestive) heart failure (2) Open leg wound: Status: Acute Code(s): S81.809A - Unspecified open wound, unspecified lower leg, initial encounter (3) Debility: Status: Acute Code(s): R53.81 - Other malaise (4) Tremulousness: Status: Resolved Code(s): R25.1 - Tremor, unspecified Plan 1. Debility and inability to complete ADLs ? PT/OT ? She was recently discharged from the transitional care unit ? Her family tried to get her placed from home however she became too weak ? This is likely complicated by her history of heart failure as well as bilateral open wounds and lower extremity edema 2. Acute on chronic diastolic CHF/essential HTN/HLD/paroxysmal A-fib ? Continue with Eliquis ? Continue with her home blood pressure medications ? Continue with IV Lasix, she likely has a mild exacerbation as she is not requiring any oxygen but she does have lower extremity edema ? Will monitor her renal function closely 3. Bilateral leg wounds ? She has been seen plastic surgery in the wound care center ? She was given 5 days of doxycycline on 10/26/2024, will continue 4. Hypothyroidism ? Stable ? Continue Synthroid 5. Chronic pain ? She is on gabapentin and oxycodone ? Given her CKD 4, will hold her gabapentin DVT: Eliquis Allergies/Procedures Done in Hospital Allergies cefazolin (From Kefzol) Allergy (Severe, Verified 10/29/24 03:39) hives/difficulty swallowing ibuprofen Allergy (Unknown, Verified 10/29/24 03:39) Rash peanut Allergy (Verified 10/29/24 03:39) Anaphylaxis process peanut, can eat peanuts, not example peanut butter Sulfa (Sulfonamide Antibiotics) Allergy (Verified 10/29/24 03:39) Unknown sulfamethoxazole (From Bactrim) Allergy (Verified 10/29/24 03:39) Other trimethoprim (From Bactrim) Allergy (Verified 10/29/24 03:39) Other Procedures: None Type of Care/Length of Stay Estimated LOS: Convalescent Care Less Than 30 days Type of Care Needed: Skilled Rehab Potential: Good Prognosis: Good Additional Orders/Day of Discharge Day of Discharge: 11/01/24 Dietary and Speech Recommendations Dietitian Recommendations/Changes: Continue with Cardiac - Heart Healthy diet and 1500mL fluid restriction per MD recommendation. Will cancel Mu BID order 2/2 pt request. Pt not interested in ONS use at this time. Will continue to follow, monitor oral intakes and modify nutrition interventions as needed. Discharge Plan Admission Admit Date/Time: 10/29/24 05:34 Attending Provider: Donell Ferrara Primary Care Provider: Marko Capone Consulting Providers: Russell Todd Discharge Orders/Prescriptions Prescriptions: Continued Mirena 20 mcg/24 hours (7 yrs) 52 mg intrauterine device 1 mcg intrauterine ONCE nitroglycerin 0.4 mg tablet, sublingual 0.4 mg sublingual Q5M PRN (Reason: chest pain) Qty: 30 1RF Rx Instructions: do not exceed 3 doses per episode carvedilol 6.25 mg tablet 6.25 mg PO BID multivitamin Tablet 1 tab PO DAILY Arthritis Pain Compound 3 click topical BID 30 Days Qty: 60 0RF furosemide 40 mg Tablet 40 mg PO DAILY Qty: 0 0RF melatonin 3 mg Tablet 3 mg PO QHS Qty: 0 0RF acetaminophen 500 mg Tablet 1,000 mg PO TID Qty: 0 0RF sodium bicarbonate 650 mg Tablet 650 mg PO 4X/DAY 30 Days Qty: 120 0RF ferrous sulfate [FeroSul] 325 mg (65 mg iron) Tablet 325 mg PO DAILY@1200 30 Days Qty: 30 0RF lidocaine 5 % Adhesive Patch,Medicated 1 patch topical DAILY 30 Days Qty: 30 0RF Protocol: *Topical Application Instructions APPLICATION INSTRUCTIONS: affected area mirtazapine 15 mg Tablet 7.5 mg PO 2200 30 Days Qty: 15 0RF Eliquis 2.5 mg tablet 2.5 mg PO BID 30 Days Qty: 60 0RF nystatin [Klayesta] 100,000 unit/gram powder topical fluoride (sodium) [Denta 5000 Plus] 1.1 % cream 1 applic PO Q24H cholecalciferol (vitamin D3) 25 mcg (1,000 unit) tablet 50 mcg PO DAILY lacosamide 100 mg tablet 100 mg PO Q12H Gemtesa 75 mg tablet 75 mg PO DAILY doxycycline hyclate 100 mg capsule 100 mg PO BID 5 Days Qty: 10 0RF polyethylene glycol 3350 [Miralax] 17 gram/dose powder 17 g PO DAILY atorvastatin 40 mg tablet 40 mg PO QHS levothyroxine 125 mcg tablet 125 mcg PO DAILY Patient Comments: TAKE 1 TABLET BY MOUTH ONCE DAILY. TAKE ON EMPTY STOMACH. FOR THYROID. calcium acetate(phosphat bind) 667 mg Capsule 667 mg PO TIDCM Qty: 1 0RF sennosides-docusate sodium [Stimulant Laxative Plus] 8.6-50 mg Tablet 2 tab PO BID Qty: 1 0RF Discontinued oxycodone 5 mg Tablet 5 mg PO Q4H PRN PRN (Reason: Pain Score 1-10 Or Pre Pt/Ot) 7 Days Qty: 42 0RF gabapentin 300 mg capsule 300 mg PO TID Referrals / Follow Up: Wound Health [Outside] Marko Capone MD [Primary Care Provider] - Disposition Disposition (needs filled in before D/C Order can be placed): Assisted Facility
--- NOTE | 2024-11-01 09:11 | CASEMGMT ---
Social Work Pt is ready for discharge today. Once SW has all d/c paperwork, will set up the discharge. SW completed the PAS/RR w/results in the HENS system, no further reviews needed. Acopy was placed in the chart and in the envelope to go w/pt. JONA Blakely
--- NOTE | 2024-11-01 09:23 | PHA.DC.MR.R ---
Pharmacy [place] Med Reconciliation Pharmacy Service has performed discharge medication reconciliation for this patient. The patient's discharge medication list was reviewed for discrepancies and discrepancies were resolved. Medications at Discharge Home Medications levonorgestrel (Mirena) 1 mcg intrauterine ONCE . 07/25/21 nitroglycerin 0.4 mg sublingual tablet 0.4 mg sublingual Q5M PRN chest pain #30 tabs 06/27/22 atorvastatin 40 mg tablet 40 mg PO QHS cholesterol 05/18/24 levothyroxine 125 mcg tablet 125 mcg PO DAILY thyroid 05/18/24 calcium acetate(phosphat bind) 667 mg capsule 667 mg PO TIDCM supplement #1 cap 06/09/24 sennosides 8.6 mg-docusate sodium 50 mg tablet (Stimulant Laxative Plus) 2 tab PO BID constipation #1 TAB 06/09/24 carvedilol 6.25 mg tablet 6.25 mg PO BID Blood pressure 09/28/24 multivitamin 1 tab PO DAILY Supplement 09/28/24 Arthritis Pain Compound 3 click topical BID 30 days #60 GMS 10/17/24 acetaminophen 500 mg tablet 1,000 mg (2 x 500 mg) PO TID #0 tabs 10/17/24 ferrous sulfate 325 mg (65 mg iron) tablet (FeroSul) 325 mg PO DAILY@1200 30 days #30 tabs 10/17/24 furosemide 40 mg tablet 40 mg PO DAILY #0 tabs 10/17/24 lidocaine 5 % topical patch 1 patch topical DAILY 30 days #30 ea 10/17/24 melatonin 3 mg tablet 3 mg PO QHS #0 tabs 10/17/24 mirtazapine 15 mg tablet 7.5 mg (1/2 x 15 mg) PO 0 30 days #15 tabs 10/17/24 sodium bicarbonate 650 mg tablet 650 mg PO 4X/DAY 30 days #120 tabs 10/17/24 apixaban 2.5 mg tablet (Eliquis) 2.5 mg PO BID 30 days #60 tabs 10/18/24 cholecalciferol (vitamin D3) 25 mcg (1,000 unit) tablet 50 mcg PO DAILY 10/26/24 doxycycline hyclate 100 mg capsule 100 mg PO BID 5 days #10 caps 10/26/24 fluoride (sodium) 1.1 % dental cream (Denta 5000 Plus) 1 applic PO Q24H 10/26/24 lacosamide 100 mg tablet 100 mg PO Q12H 10/26/24 nystatin 100,000 unit/gram topical powder (Klayesta) topical 10/26/24 vibegron 75 mg tablet (Gemtesa) 75 mg PO DAILY 10/26/24 polyethylene glycol 3350 17 gram/dose oral powder (Miralax) 17 g PO DAILY 10/29/24
[2024-11-01 09:30] VITALS: BP 126/87; PULSE 102; RESP 17; TEMP 36.4; O2SAT 96
--- NOTE | 2024-11-01 10:03 | CASEMGMT ---
Social Work Pt is going to [facility] today. SAMIR set up 11am transport w/Phys[facility]. SW let pt's RN, facility and pt know time of pickup. SW sent all d/c instructions via [facility] to [facility], let them know to follow the supervisor wound's notes for the care of pt's suresh wound. [facility] acknowledged receipt of d/c instructions and time. Pt notified her son already of her plan to go to [facility], pt states he is flying in this evening. Pt also plans to notify Mellisa, her friend, that she is going today. Mellisa had left a message for SW regarding pt's [facility] care, SW passed this on to [facility]. No further needs, pt to [facility], today. JONA Blakely
[2024-11-01] MEDS: APIXABAN 2.5 MG TABLET (WCH) PO (10:13)
[2024-11-01] MEDS: Senna/Docusate Sodium 1 Tablet 2 TABLET PO (10:13)
[2024-11-01] MEDS: Lidocaine 5% Patch 1 PATCH TOPICAL (10:14)
[2024-11-01] MEDS: Polyethylene Glycol 3350 17 GM PACKET PO (10:14)
[2024-11-01] MEDS: Cholecalciferol (VIT D3) 25 MCG TABLET (1,000 UNITS) 50 MCG PO (10:15)
--- NOTE | 2024-11-01 10:57 | PCM.DC.SUM ---
Providers Date of Admission: 10/29/24 Primary Care Physician: Dr. Marko Capone MD Consultations 10/29/24 06:48 Consult: Onc/Wound/last pattern grader Routine Comment: Reason For Visit: CHF EXACERBATION, DEBILITY Diagnosis Discharge Diagnosis (1) (HFpEF) heart failure with preserved ejection fraction: Status: Acute Code(s): I50.30 - Unspecified diastolic (congestive) heart failure (2) Open leg wound: Status: Acute Code(s): S81.809A - Unspecified open wound, unspecified lower leg, initial encounter (3) Debility: Status: Acute Code(s): R53.81 - Other malaise (4) Tremulousness: Status: Resolved Code(s): R25.1 - Tremor, unspecified Medications at Discharge Home Medications levonorgestrel (Mirena) 1 mcg intrauterine ONCE . 07/25/21 nitroglycerin 0.4 mg sublingual tablet 0.4 mg sublingual Q5M PRN chest pain #30 tabs 06/27/22 atorvastatin 40 mg tablet 40 mg PO QHS cholesterol 05/18/24 levothyroxine 125 mcg tablet 125 mcg PO DAILY thyroid 05/18/24 calcium acetate(phosphat bind) 667 mg capsule 667 mg PO TIDCM supplement #1 cap 06/09/24 sennosides 8.6 mg-docusate sodium 50 mg tablet (Stimulant Laxative Plus) 2 tab PO BID constipation #1 TAB 06/09/24 carvedilol 6.25 mg tablet 6.25 mg PO BID Blood pressure 09/28/24 multivitamin 1 tab PO DAILY Supplement 09/28/24 Arthritis Pain Compound 3 click topical BID 30 days #60 GMS 10/17/24 acetaminophen 500 mg tablet 1,000 mg (2 x 500 mg) PO TID #0 tabs 10/17/24 ferrous sulfate 325 mg (65 mg iron) tablet (FeroSul) 325 mg PO DAILY@1200 30 days #30 tabs 10/17/24 furosemide 40 mg tablet 40 mg PO DAILY #0 tabs 10/17/24 lidocaine 5 % topical patch 1 patch topical DAILY 30 days #30 ea 10/17/24 melatonin 3 mg tablet 3 mg PO QHS #0 tabs 10/17/24 mirtazapine 15 mg tablet 7.5 mg (1/2 x 15 mg) PO 2200 30 days #15 tabs 10/17/24 sodium bicarbonate 650 mg tablet 650 mg PO 4X/DAY 30 days #120 tabs 10/17/24 apixaban 2.5 mg tablet (Eliquis) 2.5 mg PO BID 30 days #60 tabs 10/18/24 cholecalciferol (vitamin D3) 25 mcg (1,000 unit) tablet 50 mcg PO DAILY 10/26/24 doxycycline hyclate 100 mg capsule 100 mg PO BID 5 days #10 caps 10/26/24 fluoride (sodium) 1.1 % dental cream (Denta 5000 Plus) 1 applic PO Q24H 10/26/24 lacosamide 100 mg tablet 100 mg PO Q12H 10/26/24 nystatin 100,000 unit/gram topical powder (Klayesta) topical 10/26/24 vibegron 75 mg tablet (Gemtesa) 75 mg PO DAILY 10/26/24 polyethylene glycol 3350 17 gram/dose oral powder (Miralax) 17 g PO DAILY 10/29/24 Hospital Course Operations None Procedures None Summary of Care Provided Minutes Spent on Discharge: 36 Hospital Course: Per HPI: MARI LOPEZ, is a 84 F who presents with weakness. Patient was admitted earlier this month discharged to transitional care unit where she was and was able to walk out on her own accord. Had been doing well but has progressively gotten weaker at home and over the past 2 days was essentially bedbound. Patient was reluctant but finally agreed to going to a [facility] facility and they were attempting to do so from home but with her being bedridden for 2 days was not feasible so patient was sent to the emergency room. In the emergency room, patient's creatinine was noted to be 3.16 chest x-ray was concerning for pulmonary vascular congestion. Heart rate did get up and she did receive a dose of her carvedilol. Patient has lower extremity wounds that have opened up and noted that her legs are seeping fluid. She states that her weight has gone up roughly 10 pounds. She says that she has not had a bowel movement in 6 days. Hospital Course: 1. Debility and inability to complete ADLs?84-year-old female presented to hospital after she was home from the transitional care unit where she initially was doing well but then was getting weaker at home and ended up being bedbound so family had been trying to get her into a prison on their own but she became too weak and was brought to the hospital. There is some concern for possible heart failure exacerbation so she was started on Lasix however she never required any oxygen. She worked with PT and OT who recommended placement. She was found to be excepted at [facility] and I discussed with her the possibility for discharge today and she expressed understanding of the risks and benefits of going to the prison and would like to go today. 2. Acute on chronic diastolic CHF/essential HTN/HLD/paroxysmal A-fib?she did not have a significant heart failure exacerbation as she never required any oxygen however she was placed on twice daily Lasix IV 40 mg which she tolerated pretty well, her renal function is CKD 4 but at baseline with a creatinine of 3.04 on the day of discharge. 3. Bilateral leg wounds?she has been seeing at the wound care and had been given 5 days of doxycycline on 10/26/2024 which she completed and will not need on discharge. 4. Hypothyroidism, chronic pain, CKD 4 all chronic medical conditions which complicate her care. Her home medications were continued where appropriate. Given her renal failure and her CKD 4 I did discontinue her gabapentin. Physical Exam Narrative General: Alert, Oriented x3, Cooperative, No apparent distress HEENT: Atraumatic, PERRLA, EOMI, Normocephalic Oral: Moist Mucosa Neck: Supple, No JVD Lungs: Diminished, Normal air movement, No rhonchi, No wheeze, No rales Cardiovascular: Regular rate, Regular Rhythm, Normal S1, Normal S2, No murmurs Abdomen: Soft, Non Tender, Non-Distended, No Hepato-splenomegaly Extremities: Edema, Capillary Refill Less than 3 Seconds Skin: Bilateral leg wounds currently dressed Musculoskeletal: No Tenderness to Palpation of Joints or Extremities Neurological: No focal neurological deficits, moves all extremities Psych/Mental Status: Normal affect, tired Weight / BMI Weight Weight: 265 lb 3.457 oz Body Mass Index (BMI) 48.4 ABG / Lab / Microbiology Data 10/31/24 05:47 11/01/24 06:20 Laboratory: Laboratory Results - last 24 hr 11/01/24 06:20: Sodium 142, Potassium 4.3, Chloride 105, Carbon Dioxide 22.5, Anion Gap 14, BUN 66 H, Creatinine 3.04 H, Estim Creat Clear Calc 17.61 L, Est GFR (MDRD) Non-Af 15 L, BUN/Creatinine Ratio 21.6 H, Glucose 82, Calcium 8.3 D/C Instructions DC O2, CPAP, BIPAP Needs Home O2 Discharge instructions: No Meaningful Use Info Meaningful Use Meaningful Use Diagnoses (Choose all that apply): None applicable Discharge Plan Admission Admit Date/Time: 10/29/24 05:34 Attending Provider: Donell Ferrara Primary Care Provider: Marko Capone Consulting Providers: Russell Todd Discharge Orders/Prescriptions Prescriptions: Continued Mirena 20 mcg/24 hours (7 yrs) 52 mg intrauterine device 1 mcg intrauterine ONCE nitroglycerin 0.4 mg tablet, sublingual 0.4 mg sublingual Q5M PRN (Reason: chest pain) Qty: 30 1RF Rx Instructions: do not exceed 3 doses per episode carvedilol 6.25 mg tablet 6.25 mg PO BID multivitamin Tablet 1 tab PO DAILY Arthritis Pain Compound 3 click topical BID 30 Days Qty: 60 0RF furosemide 40 mg Tablet 40 mg PO DAILY Qty: 0 0RF melatonin 3 mg Tablet 3 mg PO QHS Qty: 0 0RF acetaminophen 500 mg Tablet 1,000 mg PO TID Qty: 0 0RF sodium bicarbonate 650 mg Tablet 650 mg PO 4X/DAY 30 Days Qty: 120 0RF ferrous sulfate [FeroSul] 325 mg (65 mg iron) Tablet 325 mg PO DAILY@1200 30 Days Qty: 30 0RF lidocaine 5 % Adhesive Patch,Medicated 1 patch topical DAILY 30 Days Qty: 30 0RF Protocol: *Topical Application Instructions APPLICATION INSTRUCTIONS: affected area mirtazapine 15 mg Tablet 7.5 mg PO 2200 30 Days Qty: 15 0RF Eliquis 2.5 mg tablet 2.5 mg PO BID 30 Days Qty: 60 0RF nystatin [Klayesta] 100,000 unit/gram powder topical fluoride (sodium) [Denta 5000 Plus] 1.1 % cream 1 applic PO Q24H cholecalciferol (vitamin D3) 25 mcg (1,000 unit) tablet 50 mcg PO DAILY lacosamide 100 mg tablet 100 mg PO Q12H Gemtesa 75 mg tablet 75 mg PO DAILY doxycycline hyclate 100 mg capsule 100 mg PO BID 5 Days Qty: 10 0RF polyethylene glycol 3350 [Miralax] 17 gram/dose powder 17 g PO DAILY atorvastatin 40 mg tablet 40 mg PO QHS levothyroxine 125 mcg tablet 125 mcg PO DAILY Patient Comments: TAKE 1 TABLET BY MOUTH ONCE DAILY. TAKE ON EMPTY STOMACH. FOR THYROID. calcium acetate(phosphat bind) 667 mg Capsule 667 mg PO TIDCM Qty: 1 0RF sennosides-docusate sodium [Stimulant Laxative Plus] 8.6-50 mg Tablet 2 tab PO BID Qty: 1 0RF Discontinued oxycodone 5 mg Tablet 5 mg PO Q4H PRN PRN (Reason: Pain Score 1-10 Or Pre Pt/Ot) 7 Days Qty: 42 0RF gabapentin 300 mg capsule 300 mg PO TID Referrals / Follow Up: Wound Health [Outside] Marko Capone MD [Primary Care Provider] - Disposition Disposition (needs filled in before D/C Order can be placed): Group Home Facility Charges/Coding Visit Charges Inpatient E&M: 11089 Disch Hosp >30min
--- NOTE | 2024-11-01 11:23 | NURSING ---
call placed to [facility] and attempted to give report on pt. Charlotte Hall stated that nurse is busy and asking if she can call back. Call back number provided.
== END 2024-11-01 11:25 | disposition skilled nursing facility (03) | DRG 291 ==
LOC: ED 04:06 → PCU 06:00
PROVIDERS: Emergency Provider Emergency Medicine; PCP Family Medicine; Visit Provider Family Medicine
DX: I13.0 Hypertensive heart and chronic kidney disease with heart failure and stage 1 through stage 4 chronic kidney disease, or unspecified chronic kidney disease (principal); I50.33 Acute on chronic diastolic (congestive) heart failure; N18.4 Chronic kidney disease, stage 4 (severe); Z68.41 Body mass index [BMI] 40.0-44.9, adult; S81.801A Unspecified open wound, right lower leg, initial encounter; Z66 Do not resuscitate; Z79.01 Long term (current) use of anticoagulants; E03.9 Hypothyroidism, unspecified; I48.0 Paroxysmal atrial fibrillation; R25.1 Tremor, unspecified; S81.802A Unspecified open wound, left lower leg, initial encounter; G47.33 Obstructive sleep apnea (adult) (pediatric); E78.5 Hyperlipidemia, unspecified; E66.813 Obesity, class 3; R53.81 Other malaise; G89.29 Other chronic pain; Z79.899 Other long term (current) drug therapy; Z86.16 Personal history of COVID-19; Z86.718 Personal history of other venous thrombosis and embolism; Z86.711 Personal history of pulmonary embolism; X58.XXXA Exposure to other specified factors, initial encounter
CPT/HCPCS: 36415; 51702; 71045; 80048; 81001; 83735; 84439; 84443; 85025; 90715; 97112; 97161; 97166; 97530; 97535; 99283; 99285; A4216; J1938

== ENCOUNTER → 2024-11-07 05:00 | Outpatient (REF) | payer MEDICARE, OTHER, SELFPAY ==
[2024-11-07 08:57] LABS: Hematocrit 30.5 % (37-47); Hemoglobin 9.2 g/dL (12.0-15.0); Mean Corp Hgb Conc 30.2 g/dL (32-36); Mean Corpuscular Volume 107.8 fL (81-99); Mean Platelet Vol. 13.4 fl (6.2-12.0); Platelet Count 162 K/mm3 (150-450); RBC Distribution Width CV 14.6 % (11.6-14.6); RBC Distribution Width SD 58.2 fl (35.1-43.9); Red Blood Count 2.83 M/mm3 (4.2-5.4); White Blood Count 6.5 K/mm3 (4.4-11.0)
[2024-11-07 09:17] LABS: AST(SGOT) 28 U/L (<=31); Alanine Aminotransfer ALT/SGPT 24 U/L (<=34); Albumin, Serum 3.2 g/dL (3.4-4.8); Alkaline Phosphatase 96 U/L (35-104); Anion Gap 15 (5-15); BUN 65 mg/dL (4-19); BUN/Creat Ratio 24.2 RATIO (10-20); Calcium,Total 8.6 mg/dL (7.6-11.0); Carbon Dioxide 20.4 mmol/L (21.0-32.0); Chloride 108 mmol/L (98-108); Globulin 2.6 g/dL (2.2-4.2); Glucose 90 mg/dL (70-99); Potassium 4.5 mmol/L (3.3-5.1)
== END ==
LOC: OLS.ACH 05:00
PROVIDERS: PCP Family Medicine; Visit Provider Internal Medicine
DX: I50.32 Chronic diastolic (congestive) heart failure (principal)
CPT/HCPCS: 36415; 80053; 85027

== ENCOUNTER → 2024-11-14 04:00 | Outpatient (REF) | payer MEDICARE, OTHER, SELFPAY ==
--- OUTSIDE RECORDS SUMMARY | 2024-11-14 04:04 | XMS RPT_ITS | CCD ---
Author Organization [facility] Care Team Providers Care Rotary Driller Name Role Phone Lizy Capone MD Primary Care Provider Dr. Lizy Capone Primary Care Provider Dr. Lizy Capone Referring Provider [phone] Dr. Norberto Jackson Attending Provider [phone] Lizy Capone MD Primary Care Provider Dr. Lizy Capone Primary Care Provider [phone] Dr. Norberto Jackson Attending Provider [phone] Dr. Lizy Capone Referring Provider [phone] Dr. Russell Gonzalez Attending Provider [phone] Lizy Capone MD Primary Care Provider Dr. Lizy Capone Primary Care Provider Dr. Russell Gonzalez Referring Provider [phone] RYAN Contreras Attending Provider Dr. Norberto Jackson Attending Provider [phone] Dr. Lizy Capone Referring Provider [phone] Manuel, Dr. Thornton Attending Provider [phone] Lizy Capone Primary Care Provider [phone] Dr. Lizy Capone Referring Provider [phone] Manuel, Dr. Thornton Attending Provider [phone] Lizy Capone Primary Care Provider [phone] Estelita, Dr. Zhu Referring Provider [phone] Manuel, Dr. Thornton Attending Provider [phone] Manuel, Dr. Thornton Other Provider [facility] STOPER, STOPER-C Jas Dickey Attending Provider Geovani STOPER, STOPER-C Maria Teresa Attending Provider Dr. Judson Toney Emergency Provider [phone] Russell STOPER-C Miryam Primary Care Provider Dr. Ralph Wheeler [...] Primary Care Unavailable DELGADO, ROQUE Attending Unavailable YARI, KEYANA Referring Unavailable LIZY CAPONE Primary Care Unavailable THBRAD, KEYANA Attending Unavailable LIZY CAPONE Primary Care Unavailable REBEKAH BOBO Referring Unavailab le DELGADO, ROQUE Attending Unavailable LIZY CAPONE Primary Care Unavailable REBEKAH BOBO Attending Unavailab LIZY Dia Primary Care Unavailable [facility]ann[facility] BUSINESS OFFICE TECHNOLOGY INSTRUCTOR.Miryam CORONA Unavailable Yeison BUSINESS OFFICE TECHNOLOGY INSTRUCTOR.MRI MANAGER, Mulugeta Unavailable PROVIDER, UNKNOWN Attending Unavailable PROVIDER, UNKNOWN Admitting Unavailable [facility] DISTRIBUTION DISPATCHERMiryam Primary Care Provider Norberto Jackson MD Unavailable NICOL JUDGE Attending Unavailable ADITHYA HARRELL Referring Unavailable MIRYAM OROZCO Primary Care Unavailable CONSULT, NEUROLOGY Consulting Unavailable KINDRA GANNON Admitting Unavailable [facility] STOPER-C, Miryam Primary Care Provider Janine GUILLEN, Dr. [...] Provider Jimena JACK, Dr. Mann Other Provider [phone] Joni JACK, Dr. Langley Other Provider [phone] Damion JACK, Dr. Lion Other Provider Hector JACK, Dr. Sanderson Other Provider Justin JACK, Dr. Cruz Other Provider Griselda JACK, Dr. Feng Other Provider Fabián JACK, Dr. Peterson [facility] Salced[facility], Dr. Mcgovern Other Provider Gagan JACK, Dr. Singleton Other Provider Esthela JACK, Dr. Leija Other Provider Neda GUILLEN, Dr. Gaming Other Provider Millie JACK, Dr. Miller Other Provider [phone] Dez JACK, Dr. Contreras Other Provider [phone] Bandar Hernandez DO Other Provider Robinson JACK, Dr. Mcpherson Other Provider Alvaro JACK, Dr. Nixon Other Provider Julio Cesar JACK, Dr. Haji Attending Provider Ivy JACK, Dr. Rosas Other Provider Unavailable Ken JACK, Dr. Carrillo Other Provider [phone] Dr. Naina Bello MD Other Provider [phone] Michael Johnston MD Other Provider Lucero YATES, Mulugeta Other Provider Stepan JACK, Dr. Rolon Other Provider Noel JACK, Jae Other Provider [phone] TAYA MENCHACA MD Other Provider Adriana Germain MD Other Provider Milan JACK, Dr. Alex Other Provider Nicho Mcmillan MD Other Provider [phone] Minal Garcia MD Other Provider Adan JACK, Dr. Sequeira Attending Provider Adan JACK, Dr. Sequeira Referring Provider Ivy JACK, Dr. Rosas Attending Provider Unavaila ble Brown DO, Dr. Hernández Attending Provider Julio Cesar JACK, Dr. Haji Other Provider Sementi DO, Dr. Mari Cochran Admit Provider Sementi DO, Dr. Mari Cochran Other Provider Anand RN, Christa Attending Provider Unavail able Gustavo Castorena MD Attending Provider Unavaila briseida Villarreal STOPER-C, Minna Attending Provider Kell JACK, Dr. Chen Attending Provider Gustavo Castorena MD Referring Provider Unavaila briseida Vieyra, Dr. Reaves Emergency Provider [phone] [facility] STOPER-C, Miryam Primary Care Provider Semenkunal GUILLEN, Dr. Mari Cochran Attending Provide r Ken JACK, Dr. Carrillo Other Provider Dilcia GUILLEN, Dr. Reaves Attending Provider [facility] STOPER-C, Miryam Referring Provider Dr. Gonzalo Lomax MD Attending Provider Dr. Gonzalo Lomax MD Referring Provider Dr. Gonzalo Lomax MD Other Provider Dr. Mehdi Womack MD Attending Provider [phone] Sementi DO, Dr. Mari Cochran Other Provider Maxwell DO, Dr. Israel Emergency Provider Sami JACK, Dr. Michelle Garrett Admit Provider Sami JACK, Dr. Michelle Garrett Attending Provider Semenkunal DO, Dr. Mari Cochran Other Provider Sami JACK, Dr. Michelle Garrett Other Provider Ambrocio JACK, Dr. Laughlin Other Provider Dave GUILLEN, Dr. Pak Attending Provider Perez GUILLEN, Dr. Wells Other Provider Perez GUILLEN, Dr. Wells Attending Provider Dave GUILLEN, Dr. Pak Other Provider Tann[facility] STOPER-C, [facility] Care Provider Kell JACK, Gustavo Attending Provider Kailee Villarreal STOPER-C, Minna Attending Provider Antony JACK, Dr. Gautam Escalona Admit Provider Antony JACK, Dr. Gautam Escalona Attending Provider Antony JACK, Dr. Gautam Escalona Referring Provider Lisa JACK, Dr. Wells Attending Provider Phuc JACK, Dr. Espinoza Emergency Provider T[facility] STOPER-C, [facility] Care Provider Anthony GUILLEN, Dr. Thomas Attending Provider Anthony GUILLEN, Dr. Thomas Other Provider [facility] STOPER-C, [facility] Care Provider Kell JACK, Gustavo Attending Provider Kailee Friend MD, Dr. Espinoza Attending Provider [facility] STOPER-C, [facility] Care Provider Cherelle STOPER-C, Minna Attending Provider Mary JACK, Dr. Domingo Attending Provider Manuel JCAK, Dr. Thornton Attending Provider Tannhof STOPER-C, [facility] Care Provider Gustavo Castorena MD Attending Provider Kailee Hernandez MD, Dr. Domingo Attending Provider Dr. Jc Mireles DO Emergency Provider Estelita JACK, Dr. Zhu Primary Care Provider [phone]. Anthony Talyor DO Emergency Provider Perez GUILLEN, Dr. Wells Admit Provider Josias JACK, Dr. Donell Hernandez Attending Provider Josias JACK, Dr. Donell Hernandez Other Provider Jigarhopat STOPER-C, Miryam Primary Care Provider Gustavo Castorena MD Attending Provider Unavailraiza Capone MD, Dr. Zhu Primary Care Provider [phone] Kell JACK, Dr. Chen Attending Provider Aline GUILLEN, Dr. Greene Attending Provider Estelita JACK, Dr. Zhu Primary Care Provider LIZY CAPONE Primary Care Unavailable LIZY CAPONE Attending Unavailable LIZY CAPONE Primary Care Unavailable SELF Referring Unavailable MIRYAM OROZCO Attending Unavailabl STARR Perez Attending Unavail able LIZY CAPONE Primary Care Unavailable LIZY CAPONE Primary Care Unavailable MIRYAM OROZCO Referring Unavailabl e LIZY CAPONE Primary Care Unavailable MIRYAM OROZCO Referring Unavailabl e LIZY CAPONE Primary Care Unavailable MIRYAM OROZCO Attending Unavailabl e LIZY CAPONE Primary Care Unavailable MIRYAM OROZCO Attending Unavailabl e LIZY CAPONE Attending Unavailable LIZY CAPONE Primary Care Unavailable LIZY CAPONE Primary Care Unavailable MIRYAM OROZCO Referring Unavailabl e SELF Referring Unavailable LIZY CAPONE Primary Care Unavailable DEACON VALDEZ Attending Unavailable LIZY CAPONE Referring Unavailable LIZY CAPONE Primary Care Unavailable MICHAEL CARTER Attending Unavailable LIZY CAPONE Primary Care Unavailable MICHAEL CARTER Referring Unavailable LIZY CAPONE Primary Care Unavailable LIZY CAPONE Attending Unavailable LIZY CAPONE Primary Care Unavailable Tann[facility]at STOPER-C, Miryam Primary Care Provider Gustavo Castorena MD Attending Provider Unavaila ble Oleghe MD, Efewongbe Referring Provider Unavailraiza Bourne MD, Ja Attending Provider Unavailable [facility] Primary Care Unavailable Jean Paul Ha Attending Unavailable [facility], Arjay Primary Care Unavailable Alexis Friend Attending Unavailable Jc Mireles [facility] Primary Care Unavailable Oleghe OLS, Efewongbe Attending Unavailabl e Oleghe OLS, Efewongbe [facility], Arjay Primary Care Unavailable Oleghe OLS, Efewongbe [facility]ending [facility], Arjay Primary Care Unavailable Oleghe OLS, Efewongbe Attending Unavailabl e Oleghe OLS, Efewongbe Referring Unavailabl e Oleghe OLS, Efewongbe [facility]ending [facility], Arjay Primary Care Unavailable Gonzalo Lomax Referring Unavailable Gonzalo Lomax Attending Unavailable [facility] Primary Care Unavailable Bernarda Becerril Admitting Unavailable Bernarda Becerril Referring Unavailable Adithya Harrell Attending Unavailable [facility] Primary Care Unavailable Qian Albrecht Consulting Unavailable Devon Koenig Consulting Unavailable Sunday Carlos Consulting Unavailable Dre White Consulting Unavailable Edgar Davies Consulting Unavailable Ralph Rudd Consulting Unavailable Kristopher Sykes Consulting Unavailable Johnathan Hess Consulting Unavailable Korin Quinones Consulting Unavailab Ayad Traylor Consulting Unavailable iKn Young Consulting Unavailable Anthony Anderson Consulting Unavailable Ping Villalobos Consulting Unavailable AlKristen simon Consulting Unavailable Emanuel, Froilan Consulting Unavailable Mani Farah Consulting Unavailable Esthela, Heladio Consulting Unavailable Dhesi, Mekhi Consulting Unavailable Angela Pinto Consulting Unavailable Ben Garces Consulting Unavailable Bandar Hernandez Consulting Unavailable Robinson Ky Consulting Unavailable Hussain John Consulting Unavailable Bernarda Becerril Consulting Unavailable Ralph Haynes Consulting Unavailable Gerardo Rogers Consulting Unavailable Naina Bello Consulting Unavailable Michael Johnston Consulting Unavailable Mulugeta Barker Consulting Unavailable Gonzales Ying Consulting Unavailable Jae Cohen Consulting Unavailable TAYA MENCHACA Consulting Unavailable Adriana Germain Consulting Unavailable Abi Yates Consulting Unavailable Nicho Mcmillan Consulting Unavailable Minal Garcia Consulting Unavailable [facility] Unavailable Donell Ferrara Attending Unavailable Joelizabetheri, Russell Admitting Unavailable Jopperi, Russell Consulting Unavailable [facility], Arjay Primary Care Unavailable Oleghe OLS, Efewongbe Attending Unavailabl e Tannho, Arjay Primary Care Unavailable Oleghe OLS, Efewongbe Referring Unavailabl e Oleghe OLS, Efewongbe Attending Unavailabl e [facility], Arjay Primary Care Unavailable Oleghe OLS, Efewongbe Attending Unavailabl e Tannho, Arjay Primary Care Unavailable SemenMari syed Attending Unavaila ble Tannho, Arjay Primary Care Unavailable AmbrocioTyleryaprakas Attending Unavailable AmbrocioTyler brownyaprakas Referring Unavailable [facility], [facility]am Attending Unavailable Tann[facility], Arjay Primary Care Unavailable [facility], Miryam Referring Unavailable Monie Gonzalo Referring Unavailable Tann[facility], Arjay Primary Care Unavailable Gonzalo Lomax Attending Unavailable Monie Gonzalo Referring Unavailable Gonzalo Lomax Attending Unavailable Siska, Gonzalo Consulting Unavailable [facility], Arjay Primary Care Unavailable [facility], Miryam Primary Care Unavailable [facility], Miryam Referring Unavailable Mehdi Womack Attending Unavailable Monie Gonzalo Attending Unavailable Siska, Gonzalo Referring Unavailable [facility], Arjay Primary Care Unavailable [facility], Arjay Primary Care Unavailable Mari Mehta Attending Unavaila ble Ambrocio, Jayaprakas Consulting Unavailable Michelle Gallardo L Admitting Unavailable [facility], Miryam Primary Care Unavailable Alex Acosta Attending Unavailable White Michelle L Consulting Unavailable Tgpperi, Russell Consulting Unavailable [facility], [facility] Primary Care Unavailable Mari Mehta Attending Unavaila ble Sementi, Mari Cochran Referring Unavaila ble Sementi, Mari Cochran Admitting Unavaila ble [facility], Miryam Referring Unavailable William Rodgers Attending Unavailable [facility], Arjay Primary Care Unavailable [facility], Arjay Primary Care Unavailable Minna Villarreal Attending Unavailable Gonzalo Lomax Attending Unavailable [facility], Miryam Referring Unavailable [facility], Miryam Primary Care Unavailable [facility], Miryam Referring Unavailable [facility], Miryam Primary Care Unavailable Norberto Jackson Attending Unavailable [facility], Arjay Primary Care Unavailable Minna Villarreal Attending Unavailable Norberto Jackson Attending [facility] Referring Unavailable [facility] Care Unavailable Sementi, Mari Cochran Consulting Unavaila ble [facility] Care Unavailable Sementi, Mari Cochran Referring Unavaila ble Sementi, Mari Cochran Attending Unavaila ble Sementi, Mandy Admitting Unavaila ble Sementi, Mandy Admitting [facility]av[facility]a [facility]available Sementi, Mari Cochran Consulting Unavaila ble Sementi, Mari Cochran Attending Unavaila ble [facility] Unavailable Gustavo Castorena Attending Unavailable Bernarda Becerril Admitting Unavailable Bernarda Becerril Referring Unavailable [facility] Care Unavailable Edgar Davies Attending Unavailable Qian Albrecht Consulting Unavailable Devon Koenig Consulting Unavailable Sunday Carlos [...] Becerril Consulting Unavailable Ralph Haynes Consulting Unavailable [facility] Unavailable Donell Ferrara Attending Unavailable Russell Todd Consulting Unavailable Perez Russell Admitting Unavailable Donell Ferrara Consulting Unavailable Gonzalo Lomax Referring Unavailable Gonzalo Lomax Attending Unavailable [facility] Care Unavailable Sisgumaro Gonzalo Referring Unavailable Monie Gonzalo Attending Unavailable [facility] Care Unavailable [facility] Unavailable Minna Villarreal Attending Unavailable [facility] Referring Unavailable [facility] Unavailable Chayo Hernandez Attending Unavailable [facility], Miryam Primary Care Unavailable Minna Villarreal Attending Unavailable [facility] Primary Care Unavailable Guido Castorenabe Attending Unavailable [facility], Arjay Primary Care Unavailable Oleghe JOVANY, Efewongbe Attending Unavailabl e [facility], [facility]jay Primary Care Unavailable Oleghe OLS, Efewongbe Attending Unavailabl e [facility], Arjay Primary Care Unavailable Oleghe JOVANY, Efewongbe Attending Unavailabl e [facility] Unavailable Ja Olea Attending Unavailable [facility] Primary Care Unavailable Oleghe OLS, Efewongbe Attending Unavailabl e Adeli, Amir Consulting Unavailable [facility] Primary Care Unavailable Mari Mehta Admitting Unavaila ble Mari Mehta Attending Unavaila ble [facility] Unavailable Antony, Gautam Chi Admitting Unavailable Antony, Gautam Chi Referring Unavailable Antony Gautam Chi Attending Unavailable Nik Albrechts Consulting Unavailable Ralph Haynes Attending Unavailable [facility] Primary Care Unavailable Oleghe JOVANY, Efeugeneongbe Attending Unavailabl e Adeli, Amir Consulting Unavailable Siska, Gonzalo Attending Unavailable Siska, Gonzalo Referring Unavailable [facility] Unavailable Siska, Gonzalo Consulting Unavailable Siska, Gonzalo Referring Unavailable [facility] Unavailable Siska, Gonzalo Consulting Unavailable Siska, Gonzalo Attending Unavailable Siska, Gonzalo Attending Unavailable Siska, Gonzalo Referring Unavailable [facility] Unavailable Siska, Gonzalo Consulting Unavailable Siska, Gonzalo Attending Unavailable Siska, Gonzalo Referring Unavailable [facility] Unavailable Siska, Gonzalo Consulting Unavailable Siska, Gonzalo Attending Unavailable Siska, Gonzalo Referring Unavailable [facility], [facility]jay Primary Care Unavailable Siska, Gonzalo Consulting Unavailable Siska, Gonzalo Attending Unavailable Siska, Gonzalo Referring Unavailable [facility], [facility] Primary Care Unavailable Siska, Gonzalo Consulting Unavailable [facility] Primary Care Unavailable Christa Michel Attending Unavailable [facility] Primary Care Unavailable Mari Mehta Referring Unavaila Russell Schmid Attending Unavailable [facility] Primary Care Unavailable NagaJudson gonzalezapradee Attending Unavailabl e Adan Nagapradee Referring Unavailabl e Russell Gonzalez Attending Unavailable [facility] Primary Care Unavailable Antony, Gautam Chi Referring Unavailable [facility], Miryam Referring Unavailable Friend, William Attending Unavailable [facility] Primary Care Unavailable Friend, William Consulting Unavailable Siska, Gonzalo Attending Unavailable Siska, Gonzalo Referring Unavailable [facility], Arjay Primary Care Unavailable Siska, Gonzalo Consulting Unavailable Gerardo Rogers Consulting Unavailable Michael Johnston Consulting Unavailable Adriana Germain Consulting Unavailable Nicho Mcmillan Consulting Unavailable Minal Garcia Consulting Unavailable Abi Yates Consulting Unavailable Mulugeta Barker Consulting Unavailable Gonzales Ying Consulting Unavailable TAYA MENCHACA Consulting Unavailable CohenTyleryssiomara Consulting Unavailable Ace, Naina Consulting Unavailable Julio Cesar Adithya Consulting Unavailable Bernarda Becerril Attending Unavailable Julio Cesar Adithya Attending Unavailable Michelle Gallardo L Attending Unavailable White Michelle L Consulting Unavailable White Michelle L Admitting Unavailable [facility], Arjay Primary Care Unavailable Ambrocio, Jayaprakas Consulting Unavailable Russell Todd Attending Unavailable Russell Todd Consulting Unavailable Alex Acosta Attending Unavailable Alex Acosta Consulting Unavailable Russell Todd Attending Unavailable Siska Gonzalo Attending Unavailable Siska, Gonzalo Referring Unavailable [facility] Primary Care Unavailable [facility], Arjay Primary Care Unavailable Antony, Gautam Chi Referring Unavailable Antony, Gautam Chi Attending Unavailable Allergies Allergy Classification Reported Allergen(s) Allergy Type Date of Onset Reaction(s) Facility (20 sources) Aspirin Drug Allergy 11-15-19 09 Intolerance [facility] (20 sources) ceFAZolin; Translations: [CEFAZOLIN SODIUM] Drug Allergy 08-10-19 19 [facility] (20 sources) Ibuprofen; Translations: [IBUPROFEN] Drug Allergy 11-08-19 16 Rash [facility] Work Phone: (20 sources) Sulfamethoxazole / Trimethoprim; Translations: [SULFAMETHOXAZOLE-T RIMETHOPRIM] Drug Allergy 07-24-19 17 [facility] (20 sources) Sulfonamides (Antibiotic); Translations: [SULFA (SULFONAMIDE ANTIBIOTICS)] Drug Allergy 07-24-19 17 [facility] (20 sources) Peanut Butter [Other] Propensity to adverse reactions 11-15-19 03 [facility] (20 sources) ceFAZolin Drug Allergy 08-07-19 Hives [facility] (20 sources) peanut allergenic extract; Translations: [PEANUT] Drug Allergy 08-07-19 Anaphylaxis [facility] (20 sources) Sulfamethoxazole Drug Allergy 08-07-19 Other [facility] (20 sources) Trimethoprim Drug Allergy 08-07-19 Other [facility] (20 sources) Sulfonamides (Antibiotic) Allergy to substance 12-20-19 Unknown [facility] (1 source) OTHER; Translations: [OTHER] Propensity to adverse reactions (disorder) 11-15-19 [facility] (1 source) Peanut oil Propensity to adverse reactions to drug 05-04-19 Anaphylaxis [facility] (1 source) ceFAZolin Drug Allergy 11-12-19 [facility] (1 source) Ibuprofen Drug Allergy 11-12-19 [facility] (1 source) peanut allergenic extract Drug Allergy 11-12-19 [facility] (1 source) Sulfamethoxazole Drug Allergy 11-12-19 [facility] (1 source) Sulfonamides (Antibiotic) Drug allergy (disorder) 11-12-19 [facility] (1 source) Trimethoprim Drug Allergy 11-12-19 [facility] Rep[facility] Medications Current Medications Medication Drug Class(es) Dates Sig (Normalized) Sig (Original) acetaminophen 500 mg oral tablet (20 sources) Start: 10-14-2024 End: 10-17-2024 Start: 06-09-2024 End: 10-17-2024 Start: 05-16-2024 End: 05-18-2024 take 650 mg by mouth every four hours as needed Start: 06-27-2022 End: 06-09-2024 take 2 tablets by [facility] twice daily acetaminophen (TYLENOL) 500 mg tablet Take 1,000 mg by mouth twice daily. Active Comment on above: Take 1,000 mg by [facility] twice daily. ALPRAZolam 0.5 mg disintegrating oral [...] tablet (20 sources) Factor Xa Inhibitor Start: Start: 10-04-2024 End: 10-17-2024 Start: 06-09-2024 End: 09-28-2024 Start: 05-17-2024 End: 09-05-2024 Start: 05-17-2024 End: 05-17-2024 azithromycin 250 mg oral tablet (2 sources) Macrolide Antimicrobial Start: 09-15-2024 End: 09-20-2024 take 2 tablets by mouth once daily, then take 1 tablet by mouth once daily azithromycin (ZITHROMAX) 250 mg tablet Indications: Lower respiratory infection Take 2 tablets by mouth once daily for 1 day, THEN 1 tablet once daily for 4 days. 6 tablet 09/15/2024 09/20/2024 Active bisacodyl 10 mg rectal suppository (20 sources) Stimulant Laxative Start: 11-11-2024 Start: 06-09-2024 End: 10-14-2024 Start: 05-05-2024 End: 05-18-2024 carvedilol 6.25 mg oral tablet (20 sources) alpha-Adrenergic Linda, beta-Adrenergic Linda Start: 09-28-2024 Start: 06-09-2024 End: 09-28-2024 Start: 05-18-2024 End: 09-05-2024 Start: 05-17-2024 End: 05-18-2024 Start: 05-11-2024 End: 05-17-2024 cholecalciferol 0.025 mg ora l tablet (20 sources) Vitamin D Start: 10-26-2024 Start: 07-25-2021 End: 10-26-2024 Start: 04-29-2016 End: 09-05-2024 Start: 04-29-2016 End: 10-17-2019 take 2000 [IU] by mouth once daily Cholecalciferol (Vitamin D3) Discontinued 2000 UNIT PO DAILY April 29, 2016 12:00am October 17, 2019 12:07pm Comment on above: Take 2 tablets by mo ut once daily. ciprofloxacin 250 mg oral tablet [...] by mo ut three times daily for 3 days. [...] incontinence docusate sodium 50 mg / sennosides, intermediate 8.6 mg oral tablet (20 sources) Start: [...] 04-14-2016 End: 04-29-2016 Start: 04-14-2016 End: 04-29-2016 glucosamine 500 ev-hbokskqzx-gdnhriix comp 400 mg-D3 667 unit-C-Mn cap (20 sources) Start: 10-17-2019 take 1 capsule by mouth three times daily glucosamine 500 eu-cpudxiabc-ybafvenh comp 400 mg-D3 667 unit-C-Mn cap Active 1 CAP PO THREE TIMES A DAY October 17, 2019 12:03pm Start: 10-17-2019 take 1 capsule by [facility] three times daily glucosamine 500 lh-cpsbaowbt-cqrjnoxy comp 400 mg-D3 667 unit-C-Mn cap Active [...] 09, 2018 1:00am October 17, 2019 1:13pm levonorgestrel 0.908144 mg/hr intrauterine system (20 sources) Progestin, Progestin-containing [...] (XYLOCAINE) magnesium hydroxide 80 mg/ml oral suspension (20 sources) Start: 08-22-2024 take 30 mL by [...] needed for insomnia. 10/24/2024 Active Start: 10-17-2024 End: 11-11-2024 Start: 02-24-2024 End: 03-01-2024 methenamine hippurate 1000 mg oral tablet (1 source) Start: 11-11-2024 mirtazapine 15 mg oral tablet (20 sources) Start: 09-05-2024 [...] DAILY June 27, 2022 12:00am multivitamin tablet (11 sources) Start: 09-22-2024 take 1 tablet by [...] April 14, 2016 1:00am nitroglycerin 0.4 mg subling ual tablet (20 sources) Nitrate Vasodilator Start: 06-27-2022 nystatin 100 unt/mg topical powder (13 sources) Polyene Antifungal Start: 10-26-2024 Start: 10-24-2024 nystatin (MYCO STATIN) powder Apply 1 application to affected area four times daily. 60 g 5 10/24/2024 Active phenazopyridine hydrochloride 200 mg oral tablet (20 [...] on above: Take 2 tablets by mo [facility] three times daily as needed for up to 10 days. Take 1 tablet by nika three times daily as needed for pain for up to 10 days. polyethylene glycol 3350 49960 mg powder for oral solution (20 sources) Osmotic Laxative Start: 07-22-2023 End: 08-22-2024 polyethylene glycol 3350 (MIRALAX) 17 gram/dose powder Indications: Chronic constipation Take once daily 850 g 11 07/22/2023 08/22/2024 Discontinued (Duplicate Entry) Start: 06-09-2023 End: 10-29-2024 Comment on above: Take by mouth once d aily. Dissolve dose in 4 - 8 ounces of liquid and take as directed. Take once daily sodium bicarbonate 650 mg oral tablet (20 sources) Start: 10-04-2024 End: 10-17-2024 take 1 tablet by mouth four times daily sodium bicarbonate 650 mg tablet Take 1 tablet by mouth four times daily. 10/24/2024 Active sodium fluoride 0.011 mg/mg toothpaste (7 sources) Start: 10-26-2024 Vibegron (20 sources) Start: 10-26-2024 Start: 06-07-2023 End: 06-09-2024 [...] Take 30 mg by mouth once daily. (20 sources) Start: 10-17-2024 Start: 09-28-2024 Start: [...] End: 07-15-2023 0.9% NaCl 10 mL flush acetaminophen 325 mg / oxyCODONE hydrochloride 5 mg oral tablet (4 sources) Opioid Agonist Start: 10-24-2024 End: 10-31-2024 take 1 tablet by mouth every four hours as needed oxyCODONE-acetaminophen (PERCOCET) 5-325 mg tablet Take 1 tablet by mouth every 4 hours as needed for pain for up to 7 days. 0 10/24/2024 10/31/2024 albuterol 0.833 mg/ml / ipratropium bromide 0.167 [...] Take 81 mg by mouth once daily. atorvastatin 40 mg oral tabl et (20 sources) HMG-CoA Reductase Inhibitor Start: 05-18-2024 End: 11-11-2024 Start: 05-13-2024 End: 05-18-2024 benzonatate 100 mg oral caps ule (20 sources) Non-narcotic Antitussive Start: 09-04-2024 End: 10-14-2024 Start: 04-15-2023 End: 06-02-2023 take 2 capsules by mouth every eight hours as needed benzonatate (TESSALON PERLES) 100 mg capsule Take 2 capsules by mouth three times a day as needed. 30 capsule 0 04/15/2023 06/02/2023 Discontinued Comment on above: Take 2 capsules by [facility] three times a day as needed. 20 ml bupivacaine hydrochloride 7.5 mg/ml injection (3 sources) Amide Local Anesthetic Start: 11-16-2023 End: 11-16-2023 bupivacaine(PF) 0.75 % (7.5 mg/mL) 7.5 mg injection (MARCAINE PF) Start: 07-15-2023 End: 07-15-2023 bupivacaine(PF) 0.75 % (7.5 mg/mL) 7.5 mg injection (MARCAINE PF) calcium acetate 667 mg oral capsule (20 sources) Start: 04-14-2016 End: 09-22-2024 Comment on above: TAKE 1 CAPSULE BY [facility] THREE TIMES DAILY. calcium ascorbate 500 mg ora l tablet (20 sources) Start: 07-25-2021 End: 03-01-2024 calcium carbonate 500 mg birdie wable tablet (20 sources) Start: 03-01-2024 End: 06-09-2024 Start: 02-24-2024 End: 03-01-2024 calcium carbonate 1500 mg / cholecalciferol 0.01 mg oral capsule (20 sources) Vitamin D Start: 07-25-2021 End: 02-24-2024 Start: 07-25-2021 take 1 capsule by [facility] twice daily Calcium Carbonate-Vitamin D3 Active 1 CAP PO TWICE A DAY July 24, 2021 11:00pm Start: 10-21-2017 End: 08-22-2024 take 1 tablet by mouth twice daily at mealtime ykxchie-zvsuewync-bjhrigt D3 (CALCIUM 500+D) 500 mg(1,250mg) -200 unit per tablet Take 1 tablet by mouth twice daily with meals. 180 tablet 3 10/21/2017 08/22/2024 Discontinued (Course of therapy completed) Comment on above: Take 1 tablet by [facility] twice daily with meals. 10 ml calcium [...] by mouth three times daily. 90 capsule 11/22/2020 08/22/2024 Discontinued (Course of therapy completed) Comment on above: Take 1 capsule by mo [facility] three times daily. cyclobenzaprine hydrochloride 10 mg oral tablet (20 sources) Muscle Relaxant Start: 2 End: 5 Start: 04-26-2021 End: 08-13-2024 take 1 tablet by mouth three times daily as needed for muscle spasms cyclobenzaprine (FLEXERIL) 10 mg tablet Indications: Pleurodynia Take 1 tablet by mouth three times a day as needed for muscle spasm. 90 tablet 08/14/2023 08/13/2024 Active Comment on above: Take 1 tablet by nika th three times daily as needed for muscle spasm. Take 1 tablet by nika th three times a day as needed for muscle spasm. take 1 tablet by nika th three times a day as needed for muscle spasm DAILY-LUISITO tablet (20 sources) Start: 12-14-2017 End: 08-22-2024 take 1 tablet by mouth once daily DAILY-LUISITO tablet TAKE 1 TABLET BY MOUTH ONCE DAILY. 30 tablet 11 12/14/2017 08/22/2024 Discontinued (Course of therapy completed) Start: 12-14-2017 take 1 tablet by nika th once daily DAILY-LUISITO tablet TAKE 1 TABLET BY MOUTH ONCE DAILY. 30 tablet 11 12/14/2017 Active Comment on above: TAKE 1 TABLET BY NIKA TH ONCE DAILY. 1 ml dexamethasone phosphate 10 mg/ml injection (3 sources) Corticosteroid Start: 05-08-2024 End: 05-08-2024 Start: 05-08-2024 End: 05-09-2024 Start: 05-08-2024 End: 05-08-2024 12 hr dextromethorphan hydrobromide 30 mg / guaiFENesin 600 mg extended release oral tablet (20 sources) Uncompetitive Q-syzhsp-V-aspartate Receptor Antagonist, Sigma-1 Agonist Start: 09-05-2024 End: [...] affecte d area four times daily. doxycycline hyclate 100 mg o ral capsule (20 sources) Tetracycline-class Drug Start: 10-26-2024 End: 11-11-2024 Start: 10-14-2024 End: 10-17-2024 Start: 09-04-2024 End: 09-28-2024 Start: 03-01-2024 End: 06-10-2024 Drug or medicament (substanc e) (1 source) Start: 05-06-2024 End: 05-07-2024 2 ml fentaNYL 0.05 mg/ml inj ection (3 sources) Opioid Agonist Start: 05-06-2024 End: 05-06-2024 Start: 05-05-2024 End: 05-05-2024 Start: 05-05-2024 End: 05-05-2024 fluorometholone 1 mg/ml opht halmic suspension (20 sources) Corticosteroid Start: 02-15-2024 End: 10-26-2024 furosemide 20 mg oral tablet (20 sources) Loop Diuretic Start: 10-14-2024 End: 10-17-2024 Start: 06-09-2024 End: 10-17-2024 Start: 05-14-2024 End: 05-17-2024 Start: 05-10-2024 End: [...] tablet by nika th every day gabapentin 300 mg oral capsu le (20 sources) Anti-epileptic Agent Start: 10-04-2024 End: 10-26-2024 Start: 09-22-2024 End: 03-21-2025 Start: 11-28-2021 End: [...] 90 days. Take 2 capsules by [facility] three times daily for 30 days. Take one pill 3 time s per day Take 1 capsule by mo ut three times daily for 90 days. Take one pill 3 times per day Do not start before May 08, 2022. Take 1 capsule by mo ut three times daily for 180 days. Take one pill 3 times per day Take 1 capsule by mo ut three times a day for 180 days. [...] 1 tablet by nika th every afternoon. Glucosamine-Chondroit -Vit C-Mn (GLUCOSAMINE CHONDROITIN MAXSTR) 500-400 mg cap (5 sources) Start: 1 take 1 capsule by mouth three times daily Glucosamine-Chondroi t-Vit C-Mn (GLUCOSAMINE CHONDROITIN MAXSTR) 500-400 mg cap Take 1 capsule by mouth three times daily. 90 capsule 11 11/22/2020 Active Comment on above: Take 1 capsule by mo [facility] three times daily. 12 hr guaiFENesin 600 mg extended release oral tablet (20 sources) Start: End: Start: 09-15-2024 take 1 tablet by inka twice daily guaiFENesin (MUCINEX) 600 mg 12 [...] 05-18-2024 End: 05-18-2024 Start: 05-18-2024 End: 04-22-2025 Start: 05-05-2024 End: 05-18-2024 take 100 mg intravenously every twelve hours levoFLOXacin 750 mg oral tablet (1 source) Quinolone Antimicrobial Start: 05-04-2024 End: 05-04-2024 take 750 mg nasogastric route every twenty-four hours lisinopril 10 mg oral tablet (20 sources) Angiotensin Converting Enzyme Inhibitor Start: 06-07-2023 [...] 1 tablet by nika th once daily. miSOPROStol 0.2 mg oral tablet [...] on above: Take 1 capsule by mo [facility] twice daily with meals for 7 days. omeprazole 20 mg delayed rel ease oral capsule (20 sources) Proton Pump Inhibitor Start: 11-13-2017 End: 08-22-2024 Comment on above: Take 1 capsule by mo [facility] once daily. TAKE 1 CAPSULE BY [facility] ONCE DAILY ondansetron 4 mg disintegrat ing oral tablet (20 sources) Serotonin-3 Receptor Antagonist Start: 09-05-2024 End: 09-28-2024 Start: 08-22-2024 End: 09-05-2024 take 1 tablet by mouth every four hours as needed ondansetron (ZOFRAN) 4 mg tablet Take 1 tablet by mouth every 4 hours as needed for nausea/vomiting. 08/22/2024 09/05/2024 Discontinued oxyCODONE hydrochloride 5 mg oral tablet (20 sources) Opioid Agonist Start: 10-17-2024 End: 11-01-2024 Start: 02-24-2024 End: 09-28-2024 pantoprazole 40 mg delayed r elease oral tablet (20 sources) Proton Pump Inhibitor Start: 06-09-2024 End: 09-28-2024 Start: 04-14-2016 End: 04-30-2016 phenol 14 mg/ml mucosal spra y (1 source) Start: 05-11-2024 End: 05-18-2024 polysaccharide iron complex 150 mg oral capsule (20 sources) Start: 07-25-2021 End: 08-06-2021 Start: 08-31-2016 End: 10-17-2019 take 325 mg by mouth once daily at mealtime Polysaccharide Iron Complex Discontinued 325 MG PO DAILY WITH MEALS August 31, 2016 1:03pm October 17, 2019 12:07pm Start: 04-29-2016 End: 07-16-2021 Comment on above: TAKE 1 CAPSULE BY [facility] ONCE DAILY. potassium bicarbonate 20 meq effervescent oral tablet (3 sources) Start: 05-11-2024 End: 05-11-2024 Start: 05-07-2024 End: 05-08-2024 predniSONE 20 mg oral tablet (20 sources) Start: 09-20-2024 End: 10-04-2024 100 ml propofol 10 mg/ml inj ection (2 sources) General Anesthetic Start: 05-07-2024 End: 05-08-2024 Start: 05-04-2024 End: 05-05-2024 racepinephrine 22.5 mg/ml inhalation solution (2 sources) Start: 05-08-2024 End: 05-08-2024 rivaroxaban 10 mg oral tablet (20 sources) Factor Xa Inhibitor Start: 04-14-2016 End: 04-29-2016 sennosides, intermediate 8.6 mg oral tablet (2 sources) Start: [...] on above: Take 1 capsule by mo [facility] once daily. TAKE 1 CAPSULE BY [facility] ONCE DAILY traMADol hydrochloride 50 mg [...] Comment on above: Take 1 tablet by [facility] twice daily as needed for up to [...] above: Take 1 capsule by [facility] four times daily for 10 days. vitamin b6 100 mg oral tablet (20 sources) Start: 9 End: 5 Comment on above: Take one(1) tablet d [...] End: 05-18-2024 zinc acetate 25 mg oral capsule (20 sources) Start: 02-24-2024 End: 06-09-2024 zinc gluconate 50 mg oral tablet (20 sources) Start: 09-22-2024 End: 10-29-2024 zolpidem tartrate 5 mg oral tablet (20 sources) gamma-Aminobutyri c [...] as needed for up to 90 days. (1 source) End: 05-18-2024 (3 sources) Start: [...] (20 sources) Indigestion; Translations: [Epigastric pain] Onset: Episodic Acute and unspecified renal failure (20 sources) Renal failure syndrome; Translations: [Unspecified kidney failure] Onset: 05-01-2020 Chronic Acute and unspecified renal failure [...] Episodic Coronary atherosclerosis and other heart disease (20 sources) Coronary arteriosclerosis; Translations: [Atherosclerotic heart disease of [place] coronary artery without angina pectoris] 10-04-2024 Chronic Deficiency and other anemia (20 sources) Anemia of chronic disease; Translations: [Anemia [...] Onset: 5 Chronic Deficiency and other anemia (8 sources) Anemia; Translations: [Anemia, unspecified] 05-08-2024 Episodic Deficiency and other anemia (4 sources) Anemia, unspecified; Translations: [Anemia, unspecified] Onset: 5 Episodic Deficiency and other anemia (20 sources) Chronic anemia; Translations: [Anemia, unspecified] 05-19-2024 Episodic Deficiency and other anemia (20 sources) Iron deficiency anemia; Translations: [Iron deficiency anemia, unspecified] 10-04-2024 Episodic Disorders of lipid metabolism (20 sources) Hyperlipidemia; Translations: [Hyperlipidemia, unspecified] Onset: 4 07-22-2023 Chronic E Codes: Fall (16 sources) Fall; Translations: [Unspecified fall, initial encounter] Episodic Epilepsy; convulsions (20 sources) Status epilepticus; Translations: [Epilepsy, unspecified, not intractable, with status epilepticus] Onset: 5 05-18-2024 Chronic Epilepsy; convulsions (4 sources) Seizure; Translations: [Unspecified convulsions] Onset: 5 08-22-2024 Episodic Esophageal disorders (20 sources) Gastroesophageal reflux disease; Translations: [Gastro-esophageal reflux [...] and secondary hypertension (1 source) Hypertensive heart and chronic kidney disease with heart failure and stage 1 through stage 4 chronic kidney disease, or unspecified chronic kidney disease; Translations: [Hypertensive heart and chronic kidney disease with heart failure and stage 1 through stage 4 chronic kidney disease, or unspecified chronic kidney disease] Onset: 5 Chronic Immunizations and screening for infectious disease (20 sources) Methicillin resistant staphylococcus aureus carrier; Translations: [Carrier or suspected carrier of Methicillin resistant Staphylococcus aureus] Onset: 4 07-25-2021 Episodic Intestinal infection (1 source) Clostridium difficile colitis; Translations: [Enterocolitis due to Clostridium difficile, not specified as recurrent] Episodic Intestinal obstruction without hernia (20 sources) Fecal impaction; Translations: [Fecal impaction of rectum] 06-08-2023 Episodic Malaise and fatigue (20 sources) Asthenia; Translations: [Weakness] Onset: 5 05-20-2024 Episodic Nausea and vomiting (12 sources) Nausea and vomiting; Translations: [Nausea with [...] of knee] Onset: 4 04-27-2017 Chronic Osteoporosis (20 sources) Osteoporosis; Translations: [Age-related osteoporosis without current pathological fracture] Onset: 4 05-10-2024 Chronic Other aftercare (1 source) Aftercare following joint replacement surgery; Translations: [Aftercare following joint replacement surgery] Onset: 4 Chronic Other aftercare (20 sources) Long-term current use of anticoagulant; Translations: [group home (current) use of anticoagulants] 07-29-2024 Episodic Other and ill-defined heart disease (20 sources) Diastolic dysfunction; Translations: [Other ill-defined heart [...] Onset: 5 Episodic Other connective tissue disease (20 sources) History of operative procedure on shoulder; Translations: [Presence of unspecified artificial shoulder joint] 05-19-2024 Chronic Other connective tissue disease (2 sources) Presence of left artificial shoulder joint; 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] Onset: 4 Chronic Other connective tissue disease (8 sources) Myofascial pain; Translations: [Myalgia, other site] Episodic Other connective tissue disease (11 sources) Swelling of left lower limb; Translations: [Other specified soft tissue disorders] 12-06-2021 Episodic Other connective tissue disease (6 sources) Other specified soft tissue disorders; Translations: [Swelling of limb] Onset: 4 Episodic Other connective tissue disease (11 sources) [...] diseases of veins and lymphatics (20 sources) Venous insufficiency of leg; Translations: [Venous [...] [Other fecal abnormalities] Episodic Other gastrointestinal disorders (20 sources) Constipation; Translations: [Constipation, unspecified] 06-07-2023 Episodic [...] Onset: 5 Episodic Other nervous system disorders (20 sources) Chronic pain; Translations: [Other chronic pain] Chronic Other nervous system disorders (20 sources) Disorder of brain; Translations: [Encephalopathy, unspecified] 05-08-2024 Chronic Other nervous system disorders (3 sources) Encephalopathy, unspecified; Translations: [Encephalopathy, unspecified] Onset: 5 Chronic Other nervous system disorders (6 sources) Unable to walk; Translations: [Difficulty in walking, not elsewhere classified] 10-29-2024 Chronic Other nervous system disorders (4 sources) Other chronic pain; Translations: [Chronic right-sided low back pain without sciatica] Onset: 4 Chronic Other nervous system disorders (2 sources) Impairment of balance; Translations: [Other abnormalities of gait and mobility] 12-14-2023 Episodic Other nervous system disorders (20 sources) Toxic metabolic encephalopathy; Translations: [Toxic metabolic encephalopathy] 10-01-2024 Episodic Other nervous system disorders (20 sources) Tremor; Translations: [Tremor, unspecified] 09-29-2024 Episodic Other nervous system disorders (1 source) Tremor, unspecified; Translations: [Tremor, unspecified] Onset: 5 Episodic Other non-traumatic joint disorders (20 sources) Spondylosis; Translations: [Osteophyte, vertebrae] 06-18-2024 Chronic Other non-traumatic joint disorders (1 source) Osteophyte, vertebrae; Translations: [Osteophyte, vertebrae] Onset: 5 Chronic Other non-traumatic joint disorders (20 sources) Pain [...] knee; Translations: [Pain in left knee] Onset: Episodic Other nutritional; endocrine; and metabolic disorders [...] nutritional; endocrine; and metabolic disorders (20 sources) Loss of appetite; Translations: [Anorexia] 10-04-2024 Episodic Phlebitis; thrombophlebitis and thromboembolism (1 source) 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; Translations: [Chronic embolism and thrombosis of unspecified internal jugular vein] 08-22-2024 Chronic Phlebitis; thrombophlebitis and thromboembolism (20 sources) History of thromboembolism of vein; Translations: [Personal history of other venous thrombosis and embolism] Onset: 4 Resolved: 0 02-09-2018 Episodic Pulmonary heart disease (20 sources) Pulmonary hypertension; Translations: [Pulmonary hypertension, unspecified] [...] unspecified] Onset: 2 Episodic Residual codes; unclassified (5 sources) Bilateral lower limb edema; Translations: [Localized edema] Episodic Residual codes; unclassified (5 sources) H/O: fracture; Translations: [Other specified postprocedural states] Episodic Residual codes; unclassified (20 sources) History of operation on musculoskeletal system; Translations: [Other specified postprocedural states] 02-09-2018 Episodic Residual codes; unclassified (19 sources) Acute pain; Translations: [Pain, unspecified] 07-29-2024 [...] unspecified] Onset: 9 Chronic Unclassified (1 source) Subacute cough; Translations: [Subacute [...] low back pain without sciatica] Onset: 4 Unclassified (1 source) Chronic atrial fibrillation, unspecified; Translations: [Chronic atrial fibrillation, unspecified] Onset: 5 Unclassified (1 source) Acidosis, unspecified; Translations: [Acidosis, unspecified] Onset: 5 Unclassified (1 source) Other toxic encephalopathy; 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] Onset: 5 Urinary tract infections (20 sources) Urinary tract infectious disease; Translations: [Urinary tract infection, site not specified] Onset: 05-10-2024 Episodic Past or Other Problems Problem [...] iron deficiency anemia type] Onset: 03-16-2024 Episodic Deficiency and other anemia (1 source) Nutritional anemia, unspecified; Translations: [Nutritional anemia, unspecified] Onset: 03-03-2024 Episodic E Codes: Adverse effects of medical drugs (20 sources) Adverse reaction to drug; Translations: [Adverse effect of unspecified drugs, medicaments and biological substances, initial encounter] Onset: 03-03-2024 05-19-2024 Episodic Nutritional deficiencies (20 sources) Iron deficiency; Translations: [Iron deficiency] Onset: [...] Translations: [Chronic constipation] Onset: 12-14-2023 Episodic Other gastrointestinal disorders (1 source) Other fecal abnormalities; Translations: [Other fecal abnormalities] Onset: 06-10-2024 Episodic Other gastrointestinal disorders (1 source) Dysphagia, oropharyngeal phase; Translations: [Dysphagia, oropharyngeal phase] Onset: 06-10-2024 Episodic Other gastrointestinal disorders (1 source) Full incontinence of feces; Translations: [Full incontinence of feces] Onset: 06-10-2024 Episodic Other injuries and conditions due to [...] pain, unspecified laterality] Onset: 11-09-2023 Episodic Other non-traumatic joint disorders (1 source) Pain in left wrist; Translations: [Pain in left wrist] Onset: 06-10-2024 Episodic Other screening for suspected conditions (not [...] changes; Translations: [Skin irritation] Onset: 03-16-2024 Episodic Pulmonary heart disease (20 sources) Infarction of lung due to embolus; Translations: [Pulmonary embolism and infarction] Onset: 07-21-2003 Resolved: 08-21-2009 08-21-2009 Episodic Residual codes; unclassified (1 source) Asymptomatic menopausal state; Translations: [Asymptomatic postmenopausal status] Onset: 03-16-2024 Episodic Residual codes; unclassified (2 sources) Insomnia, unspecified; Translations: [Insomnia, unspecified type] Onset: 07-30-2011 Episodic Respiratory failure; insufficiency; arrest (adult) (20 sources) Acute respiratory failure; Translations: [Acute respiratory failure, unspecified whether with hypoxia or hypercapnia] Onset: 05-04-2024 05-08-2024 Episodic Septicemia (except in labor) (20 sources) Septic shock; Translations: [Sepsis, unspecified organism] Onset: 05-23-2024 06-18-2024 Episodic Shock (4 sources) Shock; Translations: [Shock, unspecified] Onset: 05-13-2024 05-04-2024 Episodic Skin and subcutaneous tissue infections (20 sources) Cellulitis; Translations: [Cellulitis, unspecified] Onset: 03-03-2024 05-19-2024 Episodic Spondylosis; intervertebral disc disorders; other back problems (20 sources) Backache; Translations: [Dorsalgia, unspecified] Onset: 10-16-2021 Episodic Unclassified (20 sources) ASA CLASS III Onset: 05-07-2005 Resolved: 07-12-2021 07-12-2021 Viral infection (20 sources) Disease caused by 2019-nCoV; Translations: [COVID-19] Onset: 01-19-2021 07-25-2021 Episodic Results Test Name Value Interpretation Reference Range Facility MR/Yessica 11-11-2024 MR/PAT [facility] Basic Metabolic Profile (BMP )on 11-09-2024 BUN Normal 4-19 [facility] Comment on above: Result Comment: Canc elled via OM: Order cancelled - Patient discharged Performed By: #### L 500.2500, L100.0100 ####[facility] [id number] [place], [address] BUN/CRE Normal 10-20 [facility] Comment on above: Result Comment: Canc elled via OM: Order cancelled - Patient discharged Performed By: #### L 500.2500, L100.0100 ####[facility] [id number] [place], [address] Calcium Normal 7.6-11.0 [facility] Comment on above: Result Comment: Canc elled via OM: Order cancelled - Patient discharged Performed By: #### L 500.2500, L100.0100 ####[facility] [id number] [place], [address] CL Normal 98-108 [facility] Comment on above: Result Comment: Canc elled via OM: Order cancelled - Patient discharged Performed By: #### L 500.2500, L100.0100 ####[facility] [id number] [place], [address] CO2 Normal 21.0-32.0 [facility] Comment on above: Result Comment: Canc elled via OM: Order cancelled - Patient discharged Performed By: #### L 500.2500, L100.0100 ####[facility] [id number] [place], [address] CREAT,SERUM Normal 0.70-1.20 [facility] Comment on above: Result Comment: Canc elled via OM: Order cancelled - Patient discharged Performed By: #### L 500.2500, L100.0100 ####[facility] [id number] [place], [address] eGFR Normal >60 [facility] Comment on above: Result Comment: Canc elled via OM: Order cancelled - Patient discharged Performed By: #### L 500.2500, L100.0100 ####[facility] [id number] [place], [address] GAP Normal 5-15 [facility] Comment on above: Result Comment: Canc elled via OM: Order cancelled - Patient discharged Performed By: #### L 500.2500, L100.0100 ####[facility] [id number] [place], [address] GLU Normal 70-99 [facility] Comment on above: Result Comment: Canc elled via OM: Order cancelled - Patient discharged Performed By: #### L 500.2500, L100.0100 ####[facility] [id number] [place], [address] Potassium Normal 3.3-5.1 [facility] Comment on above: Result Comment: Canc elled via OM: Order cancelled - Patient discharged Performed By: #### L 500.2500, L100.0100 ####[facility] [address] [place], [address] Basic Metabolic Profile (BMP) Normal 133-145 [facility] Comment on above: Result Comment: Canc elled via OM: Order cancelled - Patient discharged Performed By: #### L 500.2500, L100.0100 ####[facility] [address] [place], [address] CBC W/Diff, Automatedon 08-0 6-2024 Absolute Neut Normal 2.0-7.7 [facility] Comment on above: Result Comment: Canc elled via OM: Order cancelled - Patient discharged Performed By: #### L 500.2500, L100.0100 ####[facility] [address] [place], [address] HCT Normal 37-47 [facility] Comment on above: Result Comment: Canc elled via OM: Order cancelled - Patient discharged Performed By: #### L 500.2500, L100.0100 ####[facility] [address] [place], [address] HGB Normal 12.0-15.0 [facility] Comment on above: Result Comment: Canc elled via OM: Order cancelled - Patient discharged Performed By: #### L 500.2500, L100.0100 ####[facility] [address] [place], [address] MCH Normal 27.0-32.0 [facility] Comment on above: Result Comment: Canc elled via OM: Order cancelled - Patient discharged Performed By: #### L 500.2500, L100.0100 ####[facility] [address] [place], [address] MCHC Normal 32-36 [facility] Comment on above: Result Comment: Canc elled via OM: Order cancelled - Patient discharged Performed By: #### L 500.2500, L100.0100 ####[facility] [address] [place], [address] MCV Normal 81-99 [facility] Comment on above: Result Comment: Canc elled via OM: Order cancelled - Patient discharged Performed By: #### L 500.2500, L100.0100 ####[facility] [address] [place], [address] NEUT% Normal 47-70 [facility] Comment on above: Result Comment: Canc elled via OM: Order cancelled - Patient discharged Performed By: #### L 500.2500, L100.0100 ####[facility] [address] [place], [address] PLT Normal 150-450 [facility] Comment on above: Result Comment: Canc elled via OM: Order cancelled - Patient discharged Performed By: #### L 500.2500, L100.0100 ####[facility] [address] [place], [address] RBC Normal 4.2-5.4 [facility] Comment on above: Result Comment: Canc elled via OM: Order cancelled - Patient discharged Performed By: #### L 500.2500, L100.0100 ####[facility] [address] [place], [address] RDW CV Normal 11.6-14.6 [facility] Comment on above: Result Comment: Canc elled via OM: Order cancelled - Patient discharged Performed By: #### L 500.2500, L100.0100 ####[facility] [address] [place], [address] RDW SD Normal 35.1-43.9 [facility] Comment on above: Result Comment: Canc elled via OM: Order cancelled - Patient discharged Performed By: #### L 500.2500, L100.0100 ####[facility] [address] [place], [address] WBC Normal 4.4-11.0 [facility] Comment on above: Result Comment: Canc elled via OM: Order cancelled - Patient discharged Performed By: #### L 500.2500, L100.0100 ####[facility] [address] [place], [address] Anion gap in Serum or Plasma Ordered By: Ja Bourne on 11-07-2024 Anion gap [Moles/Vol] 15 mmol/L 5-15 [facility] BUN/creatinine ratioOrdered By: Ja Bourne on 11-07-2024 Urea nitrogen/Creatinine [Mass ratio] 24.2 mg/mg High 10-20 [facility] Bilirubin, totalOrdered By: Ja Bourne on 11-07-2024 Bilirubin [Mass/Vol] 0.26 mg/dL 0.00-1.30 [facility] CBC-Complete Blood Cnt No Di ffon 11-07-2024 Erythrocyte distribution width (RBC) [Ratio] 14.6 % Normal 11.6-14.6 [facility] Comment on above: Order Comment: 304-2 Performed By: #### L 500.4050, L100.0500 ####[facility] [address] [place], [address] Hematocrit (Bld) [Volume fraction] 30.5 % Low 37-47 [facility] Comment on above: Order Comment: 304-2 Performed By: #### L 500.4050, L100.0500 ####[facility] [address] [place], [address] Hemoglobin (Bld) [Mass/Vol] 9.2 g/dL Low 12.0-15.0 [facility] Comment on above: Order Comment: 304-2 Performed By: #### L 500.4050, L100.0500 ####[facility] [address] [place], [address] MCH (RBC) [Entitic mass] 32.5 pg High 27.0-32.0 [facility] Comment on above: Order Comment: 304-2 Performed By: #### L 500.4050, L100.0500 ####[facility] [address] [place], [address] MCHC (RBC) [Mass/Vol] 30.2 g/dL Low 32-36 [facility] Comment on above: Order Comment: 304-2 Performed By: #### L 500.4050, L100.0500 ####[facility] [address] [place], [address] MCV (RBC) [Entitic vol] 107.8 fL High 81-99 [facility] Comment on above: Order Comment: 304-2 Performed By: #### L 500.4050, L100.0500 ####[facility] [address] [place], [address] Platelet mean volume (Bld) [Entitic vol] 13.4 fL High 6.2-12.0 [facility] Comment on above: Order Comment: 304-2 Performed By: #### L 500.4050, L100.0500 ####[facility] [address] [place], [address] Platelets (Bld) [#/Vol] 162 10*3/uL Normal 150-450 [facility] Comment on above: Order Comment: 304-2 Performed By: #### L 500.4050, L100.0500 ####[facility] [address] [place], [address] RBC (Bld) [#/Vol] 2.83 10*6/uL Low 4.2-5.4 [facility] Comment on above: Order Comment: 304-2 Performed By: #### L 500.4050, L100.0500 ####[facility] [address] [place], [address] RDW SD 58.2 fl High 35.1-43.9 [facility] Comment on above: Order Comment: 304-2 Performed By: #### L 500.4050, L100.0500 ####[facility] [address] [place], [address] WBC (Bld) [#/Vol] 6.5 10*3/uL Normal 4.4-11.0 [facility] Comment on above: Order Comment: 304-2 Performed By: #### L 500.4050, L100.0500 ####[facility] [address] [place], [address] Carbon dioxide, total [Moles /volume] in Central venous bloodOrdered By: Ja Bourne on 11-07-2024 CO2 [Moles/Vol] 20.4 mmol/L Low 21.0-32.0 [facility] Chloride assayOrdered By: Bonds on 11-07-2024 Chloride [Moles/Vol] 108 mmol/L 98-108 [facility] Comprehensive Metabolic Prof ilon 11-07-2024 Albumin [Mass/Vol] 3.2 g/dL Low 3.4-4.8 [facility] Comment on above: Order Comment: 304-2 Performed By: #### L 500.4050, L100.0500 ####[facility] [address] [place], [address] Albumin/Globulin [Mass ratio] 1.3 {ratio} Normal 0.9-2.4 [facility] Comment on above: Order Comment: 304-2 Performed By: #### L 500.4050, L100.0500 ####[facility] [address] [place], [address] ALK PHOS 96 U/L Normal 35-104 [facility] Comment on above: Order Comment: 304-2 Performed By: #### L 500.4050, L100.0500 ####[facility] [address] [place], [address] ALT [Catalytic activity/Vol] 24 U/L Normal <=34 [facility] Comment on above: Order Comment: 304-2 Performed By: #### L 500.4050, L100.0500 ####[facility] [address] [place], [address] AST [Catalytic activity/Vol] 28 U/L Normal <=31 [facility] Comment on above: Order Comment: 304-2 Performed By: #### L 500.4050, L100.0500 ####[facility] [address] [place], [address] Bilirubin [Mass/Vol] 0.26 mg/dL Normal 0.00-1.30 [facility] Comment on above: Order Comment: 304-2 Performed By: #### L 500.4050, L100.0500 ####[facility] [address] [place], [address] BUN/CRE 24.2 RATIO High 10-20 [facility] Comment on above: Order Comment: 304-2 Performed By: #### L 500.4050, L100.0500 ####[facility] [address] [place], [address] Calcium [Mass/Vol] 8.6 mg/dL Normal 7.6-11.0 [facility] Comment on above: Order Comment: 304-2 Performed By: #### L 500.4050, L100.0500 ####[facility] [address] [place], [address] Chloride [Moles/Vol] 108 mmol/L Normal 98-108 [facility] Comment on above: Order Comment: 304-2 Performed By: #### L 500.4050, L100.0500 ####[facility] [address] [place], [address] CO2 [Moles/Vol] 20.4 mmol/L Low 21.0-32.0 [facility] Comment on above: Order Comment: 304-2 Performed By: #### L 500.4050, L100.0500 ####[facility] [address] [place], [address] Creatinine [Mass/Vol] 2.68 mg/dL High 0.70-1.20 [facility] Comment on above: Order Comment: 304-2 Performed By: #### L 500.4050, L100.0500 ####[facility] [address] [place], [address] GAP 15 Normal 5-15 [facility] Comment on above: Order Comment: 304-2 Performed By: #### L 500.4050, L100.0500 ####[facility] [address] [place], [address] GFR/1.73 sq M.predicted among non-blacks MDRD (S/P/Bld) [Vol rate/Area] 17 mL/min/{1.73_m2} Low >60 [facility] Comment on above: Order Comment: 304-2 Result Comment: mL/m in/1.73m2 CKD-EPI Creatinine Equation (2020) Performed By: #### L 500.4050, L100.0500 ####[facility] [address] [place], [address] Globulin (S) [Mass/Vol] 2.6 g/dL Normal 2.2-4.2 [facility] Comment on above: Order Comment: 304-2 Performed By: #### L 500.4050, L100.0500 ####[facility] [address] [place], [address] Glucose [Mass/Vol] 90 mg/dL Normal 70-99 [facility] Comment on above: Order Comment: 304-2 Performed By: #### L 500.4050, L100.0500 ####[facility] [address] [place], [address] Potassium [Moles/Vol] 4.5 mmol/L Normal 3.3-5.1 [facility] Comment on above: Order Comment: 304-2 Performed By: #### L 500.4050, L100.0500 ####[facility] [address] [place], [address] Sodium [Moles/Vol] 143 mmol/L Normal 133-145 [facility] Comment on above: Order Comment: 304-2 Performed By: #### L 500.4050, L100.0500 ####[facility] [address] [place], [address] T PROT 5.8 g/dL Low 5.9-8.4 [facility] Comment on above: Order Comment: 304-2 Performed By: #### L 500.4050, L100.0500 ####[facility] [address] [place], [place], [address] Urea nitrogen [Mass/Vol] 65 mg/dL High 4-19 [facility] Comment on above: Order Comment: 304-2 Performed By: #### L 500.4050, L100.0500 ####[facility] [address] [place], [address] Erythrocyte distribution wid th ratioOrdered By: Ja Bourne on 11-07-2024 Erythrocyte distribution width (RBC) [Ratio] 14.6 % 11.6-14.6 [facility] Erythrocyte distribution wid th standard deviationOrdered By: Ja Bourne on 11-07-2024 Erythrocyte distribution width (RBC) [Ratio] 58.2 fl High 35.1-43.9 [facility] Glomerular filtration rate ( GFR) estimation/1.73 sq m using serum, plasma, or whole bOrdered By: Ja Bourne on 11-07-2024 GFR/1.73 sq M.predicted among non-blacks MDRD (S/P/Bld) [Vol rate/Area] 17 mL/min/{1.73_m2} Low >60 [facility] Hematocrit Auto (Bld) [Volum e fraction]Ordered By: Ja Bourne on 11-07-2024 Hematocrit (Bld) [Volume fraction] 30.5 % Low 37-47 [facility] Hemoglobin measurementOrdere d By: Ja Bourne on 11-07-2024 Hemoglobin (Bld) [Mass/Vol] 9.2 g/dL Low 12.0-15.0 [facility] MCV (mean corpuscular volume ) determinationOrdered By: Ja Bourne on 11-07-2024 MCV (RBC) [Entitic vol] 107.8 fL High 81-99 [facility] Mean corpuscular hemoglobin (MCH) determinationOrdered By: Ja Bourne on 11-07-2024 MCH (RBC) [Entitic mass] 32.5 pg High 27.0-32.0 [facility] No Panel InformationOrdered By: Ja Bourne on 11-07-2024 28 U/L <32 [facility] Platelet countOrdered By: Bonds on 11-07-2024 Platelets (Bld) [#/Vol] 162 10*3/uL 150-450 [facility] Potassium measurement (mass/ volume)Ordered By: Ja Bourne on 11-07-2024 Potassium (Unsp spec) [Mass/Vol] 4.5 mmol/L 3.3-5.1 [facility] RBC Auto (Bld) [#/Vol]Ordere d By: Ja Bourne on 11-07-2024 RBC (Bld) [#/Vol] 2.83 10*6/uL Low 4.2-5.4 [facility] Serum creatinine measurement (mass/volume)Ordered By: Ja Bourne on 11-07-2024 Creatinine [Mass/Vol] 2.68 mg/dL High 0.70-1.20 [facility] Serum globulin measurementOr dered By: Ja Bourne on 11-07-2024 Globulin (S) [Mass/Vol] 2.6 g/dL 2.2-4.2 [facility] Serum glucose measurement (m ass/volume)Ordered By: Ja Bourne on 11-07-2024 Glucose [Mass/Vol] 90 mg/dL 70-99 [facility] Serum or plasma alanine huertas otransferase (ALT) measurementOrdered By: Ja Bourne on 11-07-2024 ALT [Catalytic activity/Vol] 24 U/L <35 [facility] Serum or plasma albumin farheen urement (mass/volume)Ordered By: Ja Bourne on 11-07-2024 Albumin [Mass/Vol] 3.2 g/dL Low 3.4-4.8 [facility] Serum or plasma albumin/glob ulin mass ratioOrdered By: Ja Bourne on 11-07-2024 Albumin/Globulin [Mass ratio] 1.3 {ratio} 0.9-2.4 [facility] Serum or plasma alkaline mariya sphatase measurementOrdered By: Ja Bourne on 11-07-2024 ALP [Catalytic activity/Vol] 96 U/L 35-104 [facility] Serum or plasma calcium farheen urement (mass/volume)Ordered By: Ja Bourne on 11-07-2024 Calcium [Mass/Vol] 8.6 mg/dL 7.6-11.0 [facility] Serum or plasma urea nitroge n measurement (mass/volume)Ordered By: Ja Borune on 11-07-2024 Urea nitrogen [Mass/Vol] 65 mg/dL High 4-19 [facility] Sodium levelOrdered By: Ja Bourne on 11-07-2024 Sodium [Moles/Vol] 143 mmol/L 133-145 [facility] Total proteinOrdered By: Rosey Bourne on 11-07-2024 Protein [Mass/Vol] 5.8 g/dL Low 5.9-8.4 [facility] White blood cell (WBC) count Ordered By: Ja Bourne on 11-07-2024 WBC (Bld) [#/Vol] 6.5 10*3/uL 4.4-11.0 [facility] CNPNon 11-03-2024 [facility] JOHNMARI ([id number]) 1940 F Date Time Provider Department 11/03/24 LIZY CAPONE [facility] During your visit today, we recorded the following information about you: Alex Lackey MA 11/03/2024 9:30 AM Signed Pt Caregiver/friend Alex Sawyer stopped into office and left note for provider. Alex states she called last week to request Palliative Care and left a message with a nurse that was to pass that on to provider. Patient is now at [facility] in [place]. She is asking if perhaps Palliative can eliminate some meds-this is chemical-trying to get to the bottom of why patient is randomly shaking and gets weak. She would like to address the shaking. Pt is getting PT. Pt states [facility] and Caregiver states she is unable to care for pt further. Please advise. Pt hospital reports and discharge medication list on PCP's desk to review. MANJEET Reina Mark D, MD 11/03/2024 10:28 AM Signed Order for Palliative Care done in other phone note MD Ziyad Masters Kathryn, MA 11/03/2024 11:53 AM Signed Spoke with Alex, advised that Referral has been faxed to Palliative care [place] and that she can call to schedule if they do not reach out to her. She voiced understanding. Alex Lackey MA Allergies As of Date: 11/03/2024 Noted Allergy Reaction BACTRIM (SULFAMETHOXAZOLE-TRIMETH*0 07/23/2016 4 - Hives Comments: Blisters: head to toe IBUPROFEN 11/08/2015 2 - Rash KEFZOL (CEFAZOLIN SODIUM) 08/09/2018 4 - Hives PEANUT 03/31/2023 10 - Anaphylaxis SULFA (SULFONAMIDE ANTIBIOTICS) 07/23/2016 4 - Hives 16 - Unknown Comments: Blisters: head to toe Date Reviewed: 10/24/2024 Reviewed by: Alex Lackey MA - Fully Assessed Reason for Visit: concerns for patient [Other] Prescriptions as of 11/03/2024 - ELIQUIS 2.5 mg tab(s) Take 2.5 mg by mouth two times a day. - melatonin 3 mg tablet Take 1 tablet by mouth at bedtime as needed for insomnia. - sodium bicarbonate 650 mg tablet Take [...] Glucosamine-chondroitin, Fish-Oil Problem List As Of Date (more content not included)... Normal [facility] Basic Metabolic Profile (BMP )on 11-02-2024 BUN Normal 4-19 [facility] Comment on above: Result Comment: Canc elled via OM: Order cancelled - Patient discharged Performed By: #### L 500.2500, L100.0100 ####[facility] [address] [place], [address] BUN/CRE Normal 10-20 [facility] Comment on above: Result Comment: Canc elled via OM: Order cancelled - Patient discharged Performed By: #### L 500.2500, L100.0100 ####[facility] [address] [place], [address] Calcium Normal 7.6-11.0 [facility] Comment on above: Result Comment: Canc elled via OM: Order cancelled - Patient discharged Performed By: #### L 500.2500, L100.0100 ####[facility] [address] [place], [address] CL Normal 98-108 [facility] Comment on above: Result Comment: Canc elled via OM: Order cancelled - Patient discharged Performed By: #### L 500.2500, L100.0100 ####[facility] [address] [place], [address] CO2 Normal 21.0-32.0 [facility] Comment on above: Result Comment: Canc elled via OM: Order cancelled - Patient discharged Performed By: #### L 500.2500, L100.0100 ####[facility] [address] [place], [address] CREAT,SERUM Normal 0.70-1.20 [facility] Comment on above: Result Comment: Canc elled via OM: Order cancelled - Patient discharged Performed By: #### L 500.2500, L100.0100 ####[facility] [address] [place], [address] eGFR Normal >60 [facility] Comment on above: Result Comment: Canc elled via OM: Order cancelled - Patient discharged Performed By: #### L 500.2500, L100.0100 ####[facility] [address] [place], [address] GAP Normal 5-15 [facility] Comment on above: Result Comment: Canc elled via OM: Order cancelled - Patient discharged Performed By: #### L 500.2500, L100.0100 ####[facility] [address] [place], [address] GLU Normal 70-99 [facility] Comment on above: Result Comment: Canc elled via OM: Order cancelled - Patient discharged Performed By: #### L 500.2500, L100.0100 ####[facility] [address] [place], [address] Potassium Normal 3.3-5.1 [facility] Comment on above: Result Comment: Canc elled via OM: Order cancelled - Patient discharged Performed By: #### L 500.2500, L100.0100 ####[facility] [address] [place], [address] Basic Metabolic Profile (BMP) Normal 133-145 [facility] Comment on above: Result Comment: Canc elled via OM: Order cancelled - Patient discharged Performed By: #### L 500.2500, L100.0100 ####[facility] [address] [place], [address] CBC W/Diff, Automatedon 07-3 0-2024 Absolute Neut Normal 2.0-7.7 [facility] Comment on above: Result Comment: Canc elled via OM: Order cancelled - Patient discharged Performed By: #### L 500.2500, L100.0100 ####[facility] [address] [place], [address] HCT Normal 37-47 [facility] Comment on above: Result Comment: Canc elled via OM: Order cancelled - Patient discharged Performed By: #### L 500.2500, L100.0100 ####[facility] [address] [place], [address] HGB Normal 12.0-15.0 [facility] Comment on above: Result Comment: Canc elled via OM: Order cancelled - Patient discharged Performed By: #### L 500.2500, L100.0100 ####[facility] [address] [place], [address] MCH Normal 27.0-32.0 [facility] Comment on above: Result Comment: Canc elled via OM: Order cancelled - Patient discharged Performed By: #### L 500.2500, L100.0100 ####[facility] [address] [place], [address] MCHC Normal 32-36 [facility] Comment on above: Result Comment: Canc elled via OM: Order cancelled - Patient discharged Performed By: #### L 500.2500, L100.0100 ####[facility] [address] [place], [address] MCV Normal 81-99 [facility] Comment on above: Result Comment: Canc elled via OM: Order cancelled - Patient discharged Performed By: #### L 500.2500, L100.0100 ####[facility] [address] [place], [address] NEUT% Normal 47-70 [facility] Comment on above: Result Comment: Canc elled via OM: Order cancelled - Patient discharged Performed By: #### L 500.2500, L100.0100 ####[facility] [address] [place], [address] PLT Normal 150-450 [facility] Comment on above: Result Comment: Canc elled via OM: Order cancelled - Patient discharged Performed By: #### L 500.2500, L100.0100 ####[facility] [address] [place], [address] RBC Normal 4.2-5.4 [facility] Comment on above: Result Comment: Canc elled via OM: Order cancelled - Patient discharged Performed By: #### L 500.2500, L100.0100 ####[facility] [address] [place], [address] RDW CV Normal 11.6-14.6 [facility] Comment on above: Result Comment: Canc elled via OM: Order cancelled - Patient discharged Performed By: #### L 500.2500, L100.0100 ####[facility] [address] [place], [address] RDW SD Normal 35.1-43.9 [facility] Comment on above: Result Comment: Canc elled via OM: Order cancelled - Patient discharged Performed By: #### L 500.2500, L100.0100 ####[facility] [address] [place], [address] WBC Normal 4.4-11.0 [facility] Comment on above: Result Comment: Canc elled via OM: Order cancelled - Patient discharged Performed By: #### L 500.2500, L100.0100 ####[facility] [address] [place], [address] Anion gap in Serum or Plasma Ordered By: Donell Ferrara on 11-01-2024 Anion gap [Moles/Vol] 14 mmol/L - [facility] BUN/creatinine ratioOrdered By: Donell Ferrara on 11-01-2024 Urea nitrogen/Creatinine [Mass ratio] 21.6 mg/mg High 10- [facility] Basic Metabolic Profile (BMP )on 11-01-2024 BUN/CRE 21.6 RATIO High 10-20 [facility] Comment on above: Performed By: #### L 500.2500 ####[facility] [address] [place], [address] Calcium [Mass/Vol] 8.3 mg/dL Normal 7.6-11.0 [facility] Comment on above: Performed By: #### L 500.2500 ####[facility] [address] [place], [address] Chloride [Moles/Vol] 105 mmol/L Normal 98-108 [facility] Comment on above: Performed By: #### L 500.2500 ####[facility] [address] [place], [address] CO2 [Moles/Vol] 22.5 mmol/L Normal 21.0-32.0 [facility] Comment on above: Performed By: #### L 500.2500 ####[facility] [address] [place], [address] Creatinine [Mass/Vol] 3.04 mg/dL High 0.70-1.20 [facility] Comment on above: Performed By: #### L 500.2500 ####[facility] [address] [place], [address] ECRCL 17.61 ml/min Low 50-250 [facility] Comment on above: Performed By: #### L 500.2500 ####[facility] [address] [place], [address] GAP 14 Normal 5-15 [facility] Comment on above: Performed By: #### L 500.2500 ####[facility] [address] [place], [address] GFR/1.73 sq M.predicted among non-blacks MDRD (S/P/Bld) [Vol rate/Area] 15 mL/min/{1.73_m2} Low >60 [facility] Comment on above: Result Comment: mL/m in/1.73m2 CKD-EPI Creatinine Equation (2020) Performed By: #### L 500.2500 ####[facility] [address] [place], [address] Glucose [Mass/Vol] 82 mg/dL Normal 70-99 [facility] Comment on above: Performed By: #### L 500.2500 ####[facility] [address] [place], [address] Potassium [Moles/Vol] 4.3 mmol/L Normal 3.3-5.1 [facility] Comment on above: Performed By: #### L 500.2500 ####[facility] [address] [place], [address] Sodium [Moles/Vol] 142 mmol/L Normal 133-145 [facility] Comment on above: Performed By: #### L 500.2500 ####[facility] [address] [place], [address] Urea nitrogen [Mass/Vol] 66 mg/dL High 4-19 [facility] Comment on above: Performed By: #### L 500.2500 ####[facility] [address] [place], [address] Carbon dioxide, total [Moles /volume] in Central venous bloodOrdered By: Donell Ferrara on 11-01-2024 CO2 [Moles/Vol] 22.5 mmol/L 21.0-32.0 [facility] Chloride assayOrdered By: Michelle Ferrara on 11-01-2024 Chloride [Moles/Vol] 105 mmol/L 98-108 [facility] Glomerular filtration rate ( GFR) estimation/1.73 sq m using serum, plasma, or whole bOrdered By: Donell Ferrara on 11-01-2024 GFR/1.73 sq M.predicted among non-blacks MDRD (S/P/Bld) [Vol rate/Area] 15 mL/min/{1.73_m2} Low >60 [facility] Potassium measurement (mass/ volume)Ordered By: Donell Ferrara on 11-01-2024 Potassium (Unsp spec) [Mass/Vol] 4.3 mmol/L 3.3-5.1 [facility] Serum creatinine measurement (mass/volume)Ordered By: Donell Ferrara on 11-01-2024 Creatinine [Mass/Vol] 3.04 mg/dL High 0.70-1.20 [facility] Serum glucose measurement (m ass/volume)Ordered By: Donell Ferrara on 11-01-2024 Glucose [Mass/Vol] 82 mg/dL 70-99 [facility] Serum or plasma calcium farheen urement (mass/volume)Ordered By: Donell Ferrara on 11-01-2024 Calcium [Mass/Vol] 8.3 mg/dL 7.6-11.0 [facility] Serum or plasma urea nitroge n measurement (mass/volume)Ordered By: Donell Ferrara on 11-01-2024 Urea nitrogen [Mass/Vol] 66 mg/dL High 4-19 [facility] Sodium levelOrdered By: Chet Ferrara on 11-01-2024 Sodium [Moles/Vol] 142 mmol/L 133-145 [facility] Absolute lymphocyte countOrd ered By: Donell Ferrara on 10-31-2024 Lymphocytes Auto (Unsp spec) [#/Vol] 1.82 10*3/uL 0.83-4.51 [facility] Automated lymphocyte count a s percentage of total leukocytesOrdered By: Donell Ferrara on 10-31-2024 Lymphocytes/100 WBC Auto (Unsp spec) 34.9 % 19-41 [facility] Basic Metabolic Profile (BMP )on 10-31-2024 BUN/CRE 21.3 RATIO High 10-20 [facility] Comment on above: Performed By: #### L 500.2500, L100.0100 ####[facility] [address] [place], [address] Calcium [Mass/Vol] 7.9 mg/dL Normal 7.6-11.0 [facility] Comment on above: Performed By: #### L 500.2500, L100.0100 ####[facility] [address] [place], [address] Chloride [Moles/Vol] 108 mmol/L Normal 98-108 [facility] Comment on above: Performed By: #### L 500.2500, L100.0100 ####[facility] [address] [place], [address] CO2 [Moles/Vol] 22.8 mmol/L Normal 21.0-32.0 [facility] Comment on above: Performed By: #### L 500.2500, L100.0100 ####[facility] [address] [place], [address] Creatinine [Mass/Vol] 3.21 mg/dL High 0.70-1.20 [facility] Comment on above: Performed By: #### L 500.2500, L100.0100 ####[facility] [address] [place], [address] ECRCL 16.68 ml/min Low 50-250 [facility] Comment on above: Performed By: #### L 500.2500, L100.0100 ####[facility] [address] [place], [address] GAP 13 Normal 5-15 [facility] Comment on above: Performed By: #### L 500.2500, L100.0100 ####[facility] [address] [place], [address] GFR/1.73 sq M.predicted among non-blacks MDRD (S/P/Bld) [Vol rate/Area] 14 mL/min/{1.73_m2} Low >60 [facility] Comment on above: Result Comment: mL/m in/1.73m2 CKD-EPI Creatinine Equation (2020) Performed By: #### L 500.2500, L100.0100 ####[facility] [address] [place], [address] Glucose [Mass/Vol] 94 mg/dL Normal 70-99 [facility] Comment on above: Performed By: #### L 500.2500, L100.0100 ####[facility] [address] [place], [address] Potassium [Moles/Vol] 4.5 mmol/L Normal 3.3-5.1 [facility] Comment on above: Performed By: #### L 500.2500, L100.0100 ####[facility] [address] [place], [address] Sodium [Moles/Vol] 144 mmol/L Normal 133-145 [facility] Comment on above: Performed By: #### L 500.2500, L100.0100 ####[facility] [address] [place], [address] Urea nitrogen [Mass/Vol] 68 mg/dL High 4-19 [facility] Comment on above: Performed By: #### L 500.2500, L100.0100 ####[facility] [address] [place], [address] Basophil percentageOrdered B y: Donell Ferrara on 10-31-2024 Basophils/100 WBC (Bld) 0.8 % 0-1 [facility] CBC W/Diff, Automatedon 10-05 Absolute Lymph 1.82 X10 3/uL Normal 0.83-4.51 [facility] Comment on above: Performed By: #### L 500.2500, L100.0100 ####[facility] [address] [place], [address] Absolute Neut 2.6 X10 3/uL Normal 2.0-7.7 [facility] Comment on above: Performed By: #### L 500.2500, L100.0100 ####[facility] [address] [place], [address] Basophils/100 WBC (Bld) 0.8 % Normal 0-1 [facility] Comment on above: Performed By: #### L 500.2500, L100.0100 ####[facility] [address] [place], [address] Eosinophils/100 WBC (Bld) 4.6 % Normal 0-5 [facility] Comment on above: Performed By: #### L 500.2500, L100.0100 ####[facility] [address] [place], [address] Erythrocyte distribution width (RBC) [Ratio] 15.1 % High 11.6-14.6 [facility] Comment on above: Performed By: #### L 500.2500, L100.0100 ####[facility] [address] [place], [address] Hematocrit (Bld) [Volume fraction] 27.8 % Low 37-47 [facility] Comment on above: Performed By: #### L 500.2500, L100.0100 ####[facility] [address] [place], [address] Hemoglobin (Bld) [Mass/Vol] 8.5 g/dL Low 12.0-15.0 [facility] Comment on above: Performed By: #### L 500.2500, L100.0100 ####[facility] [address] [place], [address] IG% 0.200 Normal 0.0-0.9 [facility] Comment on above: Result Comment: IG% - Immature Granulocytes (promyelocytes, myelocytes andmetamyelocytes) > 1% indicates that a LEFT SHIFT is Present. Performed By: #### L 500.2500, L100.0100 ####[facility] [address] [place], [address] Lymphocytes/100 WBC (Bld) 34.9 % Normal 19-41 [facility] Comment on above: Performed By: #### L 500.2500, L100.0100 ####[facility] [address] [place], [address] MCH (RBC) [Entitic mass] 32.9 pg High 27.0-32.0 [facility] Comment on above: Performed By: #### L 500.2500, L100.0100 ####[facility] [address] [place], [address] MCHC (RBC) [Mass/Vol] 30.6 g/dL Low 32-36 [facility] Comment on above: Performed By: #### L 500.2500, L100.0100 ####[facility] [address] [place], [address] MCV (RBC) [Entitic vol] 107.8 fL High 81-99 [facility] Comment on above: Performed By: #### L 500.2500, L100.0100 ####[facility] [address] [place], [address] Monocytes/100 WBC (Bld) 9.8 % Normal 0-10 [facility] Comment on above: Performed By: #### L 500.2500, L100.0100 ####[facility] [address] [place], [address] Neutrophils/100 WBC (Bld) 49.7 % Normal 47-70 [facility] Comment on above: Performed By: #### L 500.2500, L100.0100 ####[facility] [address] [place], [address] Nucleated RBC (Bld) [#/Vol] 0 10*3/uL Normal 0-5 [facility] Comment on above: Performed By: #### L 500.2500, L100.0100 ####[facility] [address] [place], [address] Platelet mean volume (Bld) [Entitic vol] 12.9 fL High 6.2-12.0 [facility] Comment on above: Performed By: #### L 500.2500, L100.0100 ####[facility] [address] [place], [address] Platelets (Bld) [#/Vol] 181 10*3/uL Normal 150-450 [facility] Comment on above: Performed By: #### L 500.2500, L100.0100 ####[facility] [address] [place], [address] RBC (Bld) [#/Vol] 2.58 10*6/uL Low 4.2-5.4 [facility] Comment on above: Performed By: #### L 500.2500, L100.0100 ####[facility] [address] [place], [address] RDW SD 58.4 fl High 35.1-43.9 [facility] Comment on above: Performed By: #### L 500.2500, L100.0100 ####[facility] [address] [place], [address] WBC (Bld) [#/Vol] 5.2 10*3/uL Normal 4.4-11.0 [facility] Comment on above: Performed By: #### L 500.2500, L100.0100 ####[facility] [address] [place], [address] Eosinophil percentageOrdered By: Donell Ferrara on 10-31-2024 Eosinophils/100 WBC (Bld) 4.6 % 0-5 [facility] Erythrocyte distribution wid th ratioOrdered By: Donell Ferrara on 10-31-2024 Erythrocyte distribution width (RBC) [Ratio] 15.1 % High 11.6-14.6 [facility] Erythrocyte distribution wid th standard deviationOrdered By: Donell Ferrara on 10-31-2024 Erythrocyte distribution width (RBC) [Ratio] 58.4 fl High 35.1-43.9 [facility] Hematocrit Auto (Bld) [Volum e fraction]Ordered By: Donell Ferrara on 10-31-2024 Hematocrit (Bld) [Volume fraction] 27.8 % Low 37-47 [facility] Hemoglobin measurementOrdere d By: Donell Ferrara on 10-31-2024 Hemoglobin (Bld) [Mass/Vol] 8.5 g/dL Low 12.0-15.0 [facility] Immature granulocytes/100 WB C Auto (Bld)Ordered By: Donell Ferrara on 10-31-2024 Immature granulocytes/100 WBC (Bld) 0.200 % 0.0-0.9 [facility] MCV (mean corpuscular volume ) determinationOrdered By: Donell Ferrara on 10-31-2024 MCV (RBC) [Entitic vol] 107.8 fL High 81-99 [facility] Mean corpuscular hemoglobin (MCH) determinationOrdered By: Donell Ferrara on 10-31-2024 MCH (RBC) [Entitic mass] 32.9 pg High 27.0-32.0 [facility] Monocyte percentageOrdered B y: Donell Ferrara on 10-31-2024 Monocytes/100 WBC (Bld) 9.8 % 0-10 [facility] Neutrophil percentageOrdered By: Donell Ferrara on 10-31-2024 Neutrophils/100 WBC (Bld) 49.7 % 47-70 [facility] Platelet countOrdered By: Michelle Ferrara on 10-31-2024 Platelets (Bld) [#/Vol] 181 10*3/uL 150-450 [facility] RBC Auto (Bld) [#/Vol]Ordere d By: Donell Ferrara on 10-31-2024 RBC (Bld) [#/Vol] 2.58 10*6/uL Low 4.2-5.4 [facility] White blood cell (WBC) count Ordered By: Donell Ferrara on 10-31-2024 WBC (Bld) [#/Vol] 5.2 10*3/uL 4.4-11.0 [facility] Basic Metabolic Profile (BMP )on 10-30-2024 BUN/CRE 20.6 RATIO High 10-20 [facility] Comment on above: Performed By: #### L 100.0100, L500.2500 ####[facility] [address] [place], [address] Calcium [Mass/Vol] 7.7 mg/dL Normal 7.6-11.0 [facility] Comment on above: Performed By: #### L 100.0100, L500.2500 ####[facility] [address] [place], [address] Chloride [Moles/Vol] 107 mmol/L Normal 98-108 [facility] Comment on above: Performed By: #### L 100.0100, L500.2500 ####[facility] [address] [place], [address] CO2 [Moles/Vol] 19.6 mmol/L Low 21.0-32.0 [facility] Comment on above: Performed By: #### L 100.0100, L500.2500 ####[facility] [address] [place], [address] Creatinine [Mass/Vol] 3.23 mg/dL High 0.70-1.20 [facility] Comment on above: Performed By: #### L 100.0100, L500.2500 ####[facility] [address] [place], [address] ECRCL 16.57 ml/min Low 50-250 [facility] Comment on above: Performed By: #### L 100.0100, L500.2500 ####[facility] [address] [place], [address] GAP 14 Normal 5-15 [facility] Comment on above: Performed By: #### L 100.0100, L500.2500 ####[facility] [address] [place], [address] GFR/1.73 sq M.predicted among non-blacks MDRD (S/P/Bld) [Vol rate/Area] 14 mL/min/{1.73_m2} Low >60 [facility] Comment on above: Result Comment: mL/m in/1.73m2 CKD-EPI Creatinine Equation (2020) Performed By: #### L 100.0100, L500.2500 ####[facility] [address] [place], [address] Glucose [Mass/Vol] 89 mg/dL Normal 70-99 [facility] Comment on above: Performed By: #### L 100.0100, L500.2500 ####[facility] [address] [place], [address] Potassium [Moles/Vol] 4.4 mmol/L Normal 3.3-5.1 [facility] Comment on above: Performed By: #### L 100.0100, L500.2500 ####[facility] [address] [place], [address] Sodium [Moles/Vol] 140 mmol/L Normal 133-145 [facility] Comment on above: Performed By: #### L 100.0100, L500.2500 ####[facility] [address] [place], [address] Urea nitrogen [Mass/Vol] 67 mg/dL High 4-19 [facility] Comment on above: Performed By: #### L 100.0100, L500.2500 ####[facility] [address] [place], [address] CBC W/Diff, Automatedon 07-2 Absolute Lymph 1.86 X10 3/uL Normal 0.83-4.51 [facility] Comment on above: Performed By: #### L 100.0100, L500.2500 ####[facility] [address] [place], [address] Absolute Neut 2.1 X10 3/uL Normal 2.0-7.7 [facility] Comment on above: Performed By: #### L 100.0100, L500.2500 ####[facility] [address] [place], [address] Basophils/100 WBC (Bld) 0.9 % Normal 0-1 [facility] Comment on above: Performed By: #### L 100.0100, L500.2500 ####[facility] [address] [place], [address] Eosinophils/100 WBC (Bld) 5.5 % High 0-5 [facility] Comment on above: Performed By: #### L 100.0100, L500.2500 ####[facility] [address] [place], [address] Erythrocyte distribution width (RBC) [Ratio] 15.2 % High 11.6-14.6 [facility] Comment on above: Performed By: #### L 100.0100, L500.2500 ####[facility] [address] [place], [address] Hematocrit (Bld) [Volume fraction] 29.4 % Low 37-47 [facility] Comment on above: Performed By: #### L 100.0100, L500.2500 ####[facility] [address] [place], [address] Hemoglobin (Bld) [Mass/Vol] 8.7 g/dL Low 12.0-15.0 [facility] Comment on above: Performed By: #### L 100.0100, L500.2500 ####[facility] [address] [place], [address] IG% 0.200 Normal 0.0-0.9 [facility] Comment on above: Result Comment: IG% - Immature Granulocytes (promyelocytes, myelocytes andmetamyelocytes) > 1% indicates that a LEFT SHIFT is Present. Performed By: #### L 100.0100, L500.2500 ####[facility] [address] [place], [address] Lymphocytes/100 WBC (Bld) 39.6 % Normal 19-41 [facility] Comment on above: Performed By: #### L 100.0100, L500.2500 ####[facility] [address] [place], [address] MCH (RBC) [Entitic mass] 33.0 pg High 27.0-32.0 [facility] Comment on above: Performed By: #### L 100.0100, L500.2500 ####[facility] [address] [place], [address] MCHC (RBC) [Mass/Vol] 29.6 g/dL Low 32-36 [facility] Comment on above: Performed By: #### L 100.0100, L500.2500 ####[facility] [address] [place], [address] MCV (RBC) [Entitic vol] 111.4 fL High 81-99 [facility] Comment on above: Performed By: #### L 100.0100, L500.2500 ####[facility] [address] [place], [address] Monocytes/100 WBC (Bld) 10.2 % High 0-10 [facility] Comment on above: Performed By: #### L 100.0100, L500.2500 ####[facility] [address] [place], [address] Neutrophils/100 WBC (Bld) 43.6 % Low 47-70 [facility] Comment on above: Performed By: #### L 100.0100, L500.2500 ####[facility] [address] [place], [address] Nucleated RBC (Bld) [#/Vol] 0 10*3/uL Normal 0-5 [facility] Comment on above: Performed By: #### L 100.0100, L500.2500 ####[facility] [address] [place], [address] Platelet mean volume (Bld) [Entitic vol] 13.1 fL High 6.2-12.0 [facility] Comment on above: Performed By: #### L 100.0100, L500.2500 ####[facility] [address] [place], [address] Platelets (Bld) [#/Vol] 184 10*3/uL Normal 150-450 [facility] Comment on above: Performed By: #### L 100.0100, L500.2500 ####[facility] [address] [place], [address] RBC (Bld) [#/Vol] 2.64 10*6/uL Low 4.2-5.4 [facility] Comment on above: Performed By: #### L 100.0100, L500.2500 ####[facility] [address] [place], [address] RDW SD 60.9 fl High 35.1-43.9 [facility] Comment on above: Performed By: #### L 100.0100, L500.2500 ####[facility] [address] [place], [address] WBC (Bld) [#/Vol] 4.7 10*3/uL Normal 4.4-11.0 [facility] Comment on above: Performed By: #### L 100.0100, L500.2500 ####[facility] [address] [place], [address] Absolute lymphocyte countOrd ered By: Anthony Taylor on 10-29-2024 Lymphocytes Auto (Unsp spec) [#/Vol] 1.74 10*3/uL 0.83-4.51 [facility] Anion gap in Serum or Plasma Ordered By: Anthony Taylor on 10-29-2024 Anion gap [Moles/Vol] 13 mmol/L 5- [facility] Automated lymphocyte count a s percentage of total leukocytesOrdered By: Anthony Taylor on 10-29-2024 Lymphocytes/100 WBC Auto (Unsp spec) 30.1 % - [facility] BUN/creatinine ratioOrdered By: Anthony Taylor on 10-29-2024 Urea nitrogen/Creatinine [Mass ratio] 21.3 mg/mg High 10- [facility] Basic Metabolic Profile (BMP )on 10-29-2024 BUN/CRE 21.3 RATIO High 10- [facility] Comment on above: Performed By: #### L 501.5200, L501.9520, L100.0100, L500.2500 ####[facility] [address] [place], [address] Calcium [Mass/Vol] 8.3 mg/dL Normal 7.6-11.0 [facility] Comment on above: Performed By: #### L 501.5200, L501.9520, L100.0100, L500.2500 ####[facility] [address] [place], [address] Chloride [Moles/Vol] 106 mmol/L Normal 98-108 [facility] Comment on above: Performed By: #### L 501.5200, L501.9520, L100.0100, L500.2500 ####[facility] [address] [place], [address] CO2 [Moles/Vol] 23.5 mmol/L Normal 21.0-32.0 [facility] Comment on above: Performed By: #### L 501.5200, L501.9520, L100.0100, L500.2500 ####[facility] [address] [place], [address] Creatinine [Mass/Vol] 3.16 mg/dL High 0.70-1.20 [facility] Comment on above: Performed By: #### L 501.5200, L501.9520, L100.0100, L500.2500 ####[facility] [address] [place], [address] ECRCL 15.60 ml/min Low 50-250 [facility] Comment on above: Performed By: #### L 501.5200, L501.9520, L100.0100, L500.2500 ####[facility] [address] [place], [address] GAP 13 Normal 5-15 [facility] Comment on above: Performed By: #### L 501.5200, L501.9520, L100.0100, L500.2500 ####[facility] [address] [place], [address] GFR/1.73 sq M.predicted among non-blacks MDRD (S/P/Bld) [Vol rate/Area] 14 mL/min/{1.73_m2} Low >60 [facility] Comment on above: Result Comment: mL/m in/1.73m2 CKD-EPI Creatinine Equation (2020) Performed By: #### L 501.5200, L501.9520, L100.0100, L500.2500 ####[facility] [address] [place], [address] Glucose [Mass/Vol] 98 mg/dL Normal 70-99 [facility] Comment on above: Performed By: #### L 501.5200, L501.9520, L100.0100, L500.2500 ####[facility] [address] [place], [address] Potassium [Moles/Vol] 4.4 mmol/L Normal 3.3-5.1 [facility] Comment on above: Performed By: #### L 501.5200, L501.9520, L100.0100, L500.2500 ####[facility] [address] [place], [address] Sodium [Moles/Vol] 142 mmol/L Normal 133-145 [facility] Comment on above: Performed By: #### L 501.5200, L501.9520, L100.0100, L500.2500 ####[facility] [address] [place], [address] Urea nitrogen [Mass/Vol] 67 mg/dL High 4-19 [facility] Comment on above: Performed By: #### L 501.5200, L501.9520, L100.0100, L500.2500 ####[facility] [address] [place], [address] Basophil percentageOrdered B y: Anthony Taylor on 10-29-2024 Basophils/100 WBC (Bld) 0.7 % 0-1 [facility] Bilirubin Test strip Ql (U)O rdered By: Anthony Taylor on 10-29-2024 Bilirubin Ql (U) Negative Negative [facility] CBC W/Diff, Automatedon - Absolute Lymph 1.74 X10 3/uL Normal 0.83-4.51 [facility] [facility] Comment on above: Performed By: #### L 501.5200, L501.9520, L100.0100, L500.2500 ####[facility] [address] [place], [address] Absolute Neut 3.1 X10 3/uL Normal 2.0-7.7 [facility] Comment on above: Performed By: #### L 501.5200, L501.9520, L100.0100, L500.2500 ####[facility] [address] [place], [address] Basophils/100 WBC (Bld) 0.7 % Normal 0-1 [facility] Comment on above: Performed By: #### L 501.5200, L501.9520, L100.0100, L500.2500 ####[facility] [address] [place], [address] Eosinophils/100 WBC (Bld) 6.0 % High 0-5 [facility] Comment on above: Performed By: #### L 501.5200, L501.9520, L100.0100, L500.2500 ####[facility] [address] [place], [address] Erythrocyte distribution width (RBC) [Ratio] 15.0 % High 11.6-14.6 [facility] Comment on above: Performed By: #### L 501.5200, L501.9520, L100.0100, L500.2500 ####[facility] [address] [place], [address] Hematocrit (Bld) [Volume fraction] 31.4 % Low 37-47 [facility] Comment on above: Performed By: #### L 501.5200, L501.9520, L100.0100, L500.2500 ####[facility] [address] [place], [address] Hemoglobin (Bld) [Mass/Vol] 9.4 g/dL Low 12.0-15.0 [facility] Comment on above: Performed By: #### L 501.5200, L501.9520, L100.0100, L500.2500 ####[facility] [address] [place], [address] IG% 0.200 Normal 0.0-0.9 [facility] Comment on above: Result Comment: IG% - Immature Granulocytes (promyelocytes, myelocytes andmetamyelocytes) > 1% indicates that a LEFT SHIFT is Present. Performed By: #### L 501.5200, L501.9520, L100.0100, L500.2500 ####[facility] [address] [place], [address] Lymphocytes/100 WBC (Bld) 30.1 % Normal 19-41 [facility] Comment on above: Performed By: #### L 501.5200, L501.9520, L100.0100, L500.2500 ####[facility] [address] [place], [address] MCH (RBC) [Entitic mass] 32.0 pg Normal 27.0-32.0 [facility] Comment on above: Performed By: #### L 501.5200, L501.9520, L100.0100, L500.2500 ####[facility] [address] [place], [address] MCHC (RBC) [Mass/Vol] 29.9 g/dL Low 32-36 [facility] Comment on above: Performed By: #### L 501.5200, L501.9520, L100.0100, L500.2500 ####[facility] [address] [place], [address] MCV (RBC) [Entitic vol] 106.8 fL High 81-99 [facility] Comment on above: Performed By: #### L 501.5200, L501.9520, L100.0100, L500.2500 ####[facility] [address] [place], [address] Monocytes/100 WBC (Bld) 9.8 % Normal 0-10 [facility] Comment on above: Performed By: #### L 501.5200, L501.9520, L100.0100, L500.2500 ####[facility] [address] [place], [address] Neutrophils/100 WBC (Bld) 53.2 % Normal 47-70 [facility] Comment on above: Performed By: #### L 501.5200, L501.9520, L100.0100, L500.2500 ####[facility] [address] [place], [address] Nucleated RBC (Bld) [#/Vol] 0 10*3/uL Normal 0-5 [facility] Comment on above: Performed By: #### L 501.5200, L501.9520, L100.0100, L500.2500 ####[facility] [address] [place], [address] Platelet mean volume (Bld) [Entitic vol] 13.6 fL High 6.2-12.0 [facility] Comment on above: Performed By: #### L 501.5200, L501.9520, L100.0100, L500.2500 ####[facility] [address] [place], [address] Platelets (Bld) [#/Vol] 212 10*3/uL Normal 150-450 [facility] Comment on above: Performed By: #### L 501.5200, L501.9520, L100.0100, L500.2500 ####[facility] [address] [place], [address] RBC (Bld) [#/Vol] 2.94 10*6/uL Low 4.2-5.4 [facility] Comment on above: Performed By: #### L 501.5200, L501.9520, L100.0100, L500.2500 ####[facility] [address] [place], [address] RDW SD 57.2 fl High 35.1-43.9 [facility] Comment on above: Performed By: #### L 501.5200, L501.9520, L100.0100, L500.2500 ####[facility] [address] [place], [address] WBC (Bld) [#/Vol] 5.8 10*3/uL Normal 4.4-11.0 [facility] Comment on above: Performed By: #### L 501.5200, L501.9520, L100.0100, L500.2500 ####[facility] [address] [place], [address] Carbon dioxide, total [Moles /volume] in Central venous bloodOrdered By: Anthony Taylor on 10-29-2024 CO2 [Moles/Vol] 23.5 mmol/L 21.0-32.0 [facility] Chest 1 View (Portable)on Chest 1 View (Portable) Normal [facility] Chloride assayOrdered By: Korina Taylor on 10-29-2024 Chloride [Moles/Vol] 106 mmol/L 98-108 [facility] Emergency Department Summary on 10-29-2024 Emergency Department Summary Normal [facility] Eosinophil percentageOrdered By: Anthony Taylor on 10-29-2024 Eosinophils/100 WBC (Bld) 6.0 % High 0-5 [facility] Erythrocyte distribution wid th ratioOrdered By: Anthony Taylor on 10-29-2024 Erythrocyte distribution width (RBC) [Ratio] 15.0 % High 11.6-14.6 [facility] Erythrocyte distribution wid th standard deviationOrdered By: Anthony Taylor on 10-29-2024 Erythrocyte distribution width (RBC) [Ratio] 57.2 fl High 35.1-43.9 [facility] Glomerular filtration rate ( GFR) estimation/1.73 sq m using serum, plasma, or whole bOrdered By: Anthony Taylor on 10-29-2024 GFR/1.73 sq M.predicted among non-blacks MDRD (S/P/Bld) [Vol rate/Area] 14 mL/min/{1.73_m2} Low >60 [facility] H AND P Exam - Hospitaliston 10-29-2024 H&P Exam - Hospitalist Normal [facility] Hematocrit Auto (Bld) [Volum e fraction]Ordered By: Anthony Taylor on 10-29-2024 Hematocrit (Bld) [Volume fraction] 31.4 % Low 37-47 [facility] Hemoglobin measurementOrdere d By: Anthony Taylor on 10-29-2024 Hemoglobin (Bld) [Mass/Vol] 9.4 g/dL Low 12.0-15.0 [facility] Immature granulocytes/100 WB C Auto (Bld)Ordered By: Anthony Taylor on 10-29-2024 Immature granulocytes/100 WBC (Bld) 0.200 % 0.0-0.9 [facility] Ketones Test strip Ql (U)Ord ered By: Anthony Taylor on 10-29-2024 Ketones Ql (U) Negative Negative [facility] MCV (mean corpuscular volume ) determinationOrdered By: Anthony Taylor on 10-29-2024 MCV (RBC) [Entitic vol] 106.8 fL High 81-99 [facility] Magnesiumon 10-29-2024 Magnesium [Mass/Vol] 2.3 mg/dL High 1.5-2.2 [facility] Comment on above: Performed By: #### L 501.5200, L501.9520, L100.0100, L500.2500 ####[facility] [address] [place], [address] Magnesium measurement (mass/ volume)Ordered By: Anthony Taylor on 10-29-2024 Magnesium (Unsp spec) [Mass/Vol] 2.3 mg/dL High 1.5-2.2 [facility] Mean corpuscular hemoglobin (MCH) determinationOrdered By: Anthony Taylor on 10-29-2024 MCH (RBC) [Entitic mass] 32.0 pg 27.0-32.0 [facility] Monocyte percentageOrdered B y: Anthony Taylor on 10-29-2024 Monocytes/100 WBC (Bld) 9.8 % 0-10 [facility] Mucus LM Ql (Urine sed)Order ed By: Anthony Taylor on 10-29-2024 Mucus Ql (Urine sed) 0 SEEN /hpf [facility] Neutrophil percentageOrdered By: Anthony Taylor on 10-29-2024 Neutrophils/100 WBC (Bld) 53.2 % 47-70 [facility] Nitrite Test strip Ql (U)Ord ered By: Anthony Taylor on 10-29-2024 Nitrite Ql (U) Negative Negative [facility] Platelet countOrdered By: Korina Taylor on 10-29-2024 Platelets (Bld) [#/Vol] 212 10*3/uL 150-450 [facility] Potassium measurement (mass/ volume)Ordered By: Anthony Taylor on 10-29-2024 Potassium (Unsp spec) [Mass/Vol] 4.4 mmol/L 3.3-5.1 [facility] Protein Test strip Ql (U)Ord ered By: Anthony Taylor on 10-29-2024 Protein Ql (U) 15 mg/dl High Negative [facility] RBC Auto (Bld) [#/Vol]Ordere d By: Anthony Taylor on 10-29-2024 RBC (Bld) [#/Vol] 2.94 10*6/uL Low 4.2-5.4 [facility] Serum creatinine measurement (mass/volume)Ordered By: Anthony Taylor on 10-29-2024 Creatinine [Mass/Vol] 3.16 mg/dL High 0.70-1.20 [facility] Serum glucose measurement (m ass/volume)Ordered By: Anthony Taylor on 10-29-2024 Glucose [Mass/Vol] 98 mg/dL 70-99 [facility] Serum or plasma calcium farheen urement (mass/volume)Ordered By: Anthony Taylor on 10-29-2024 Calcium [Mass/Vol] 8.3 mg/dL 7.6-11.0 [facility] Serum or plasma urea nitroge n measurement (mass/volume)Ordered By: Anthony Taylor on 10-29-2024 Urea nitrogen [Mass/Vol] 67 mg/dL High 4-19 [facility] Sodium levelOrdered By: Dylan Taylor on 10-29-2024 Sodium [Moles/Vol] 142 mmol/L 133-145 [facility] Squamous epithelial cells de tection in urine sediment by light microscopyOrdered By: Anthony Taylor on 10-29-2024 Epithelial cells.squamous LM Ql (Urine sed) 0-5 SEEN /hpf 5-10 [facility] T4 Free Directon 10-29-2024 T4 FREE DIRECT 1.20 ng/dL Normal 0.76-1.46 [facility] Comment on above: Performed By: #### L 506.0400 ####[facility] [address] [place], [address] T4 freeOrdered By: Russell fulton on 10-29-2024 Free T4 [Mass/Vol] 1.20 ng/dL 0.76-1.46 [facility] TSH DL <= 0.005 mIU/L QnOrde red By: Anthony Taylor on 10-29-2024 TSH Qn 4.310 uIU/mL High 0.300-4.20 0 [facility] Thyroid Stim Hormone (TSH)on 10-29-2024 TSH 4.310 uIU/mL High 0.300-4.20 0 [facility] Comment on above: Performed By: #### L 501.5200, L501.9520, L100.0100, L500.2500 ####[facility] [address] [place], [address] Urinalysis, Completeon 10-29 EPI,SQUAMOUS 0-5 SEEN Normal 5-10 [facility] Comment on above: Order Comment: SUSAN TER SPECIMEN Performed By: #### L 400.0001 ####[facility] [address] [place], [address] WBC 5-10 SEEN Normal 0-5 [facility] Comment on above: Order Comment: SUSAN TER SPECIMEN Performed By: #### L 400.0001 ####[facility] [address] [place], [address] BILIRUBIN URINE Negative Normal Negative [facility] Comment on above: Order Comment: SUSAN TER SPECIMEN Performed By: #### L 400.0001 ####[facility] [address] [place], [address] Clarity (U) Clear Normal Clear [facility] Comment on above: Order Comment: SUSAN TER SPECIMEN Performed By: #### L 400.0001 ####[facility] [address] [place], [address] Color (U) Straw Normal Yellow [facility] Comment on above: Order Comment: SUSAN TER SPECIMEN Performed By: #### L 400.0001 ####[facility] [address] [place], [address] GLUCOSE, UR Normal Normal Normal [facility] Comment on above: Order Comment: SUSAN TER SPECIMEN Performed By: #### L 400.0001 ####[facility] [address] [place], [address] KETONE UR Negative Normal Negative [facility] Comment on above: Order Comment: SUSAN TER SPECIMEN Performed By: #### L 400.0001 ####[facility] [address] [place], [address] LEUK ESTERASE 25 /ul Abnormal Negative [facility] Comment on above: Order Comment: SUSAN TER SPECIMEN Performed By: #### L 400.0001 ####[facility] [address] [place], [address] Nitrite Ql (U) Negative Normal Negative [facility] Comment on above: Order Comment: SUSAN TER SPECIMEN Performed By: #### L 400.0001 ####[facility] [address] [place], [address] OCCULT BLOOD-UR Negative Normal Negative [facility] Comment on above: Order Comment: SUSAN TER SPECIMEN Performed By: #### L 400.0001 ####[facility] [address] [place], [address] pH UR 6.0 Normal 5.0 - 8.0 [facility] Comment on above: Order Comment: SUSAN TER SPECIMEN Performed By: #### L 400.0001 ####[facility] [address] [place], [address] PROT DIPSTX 15 mg/dl Abnormal Negative [facility] Comment on above: Order Comment: SUSAN TER SPECIMEN Performed By: #### L 400.0001 ####[facility] [address] [place], [address] SP.GR. DIPSTX 1.010 Normal 1.002-1.03 0 [facility] Comment on above: Order Comment: USSAN TER SPECIMEN Performed By: #### L 400.0001 ####[facility] [address] [place], [address] UROBILI Normal Normal Normal [facility] Comment on above: Order Comment: SUSAN TER SPECIMEN Performed By: #### L 400.0001 ####[facility] [address] [place], [address] BACTERIA 0 SEEN Normal None Seen [facility] Comment on above: Order Comment: SUSAN TER SPECIMEN Performed By: #### L 400.0001 ####[facility] [address] [place], [address] Mucus Ql (Urine sed) 0 SEEN Normal [facility] Comment on above: Order Comment: SUSAN TER SPECIMEN Performed By: #### L 400.0001 ####[facility] [address] [place], [address] RBC 0 SEEN Normal 0-5 [facility] Comment on above: Order Comment: SUSAN TER SPECIMEN Performed By: #### L 400.0001 ####[facility] [address] [place], [address] Urine clarityOrdered By: Herman Taylor on 10-29-2024 Clarity (U) Clear Clear [facility] Urine color determinationOrd ered By: Anthony Taylor on 10-29-2024 Color (U) Straw Yellow [facility] Urine glucose detectionOrder ed By: Anthony Taylor on 10-29-2024 Glucose Ql (U) Normal mg/dl Normal [facility] Urine leukocyte esterase det ection by dipstickOrdered By: Anthony Taylor on 10-29-2024 Leukocyte esterase Test strip Ql (U) 25 /ul High Negative [facility] Urine pHOrdered By: Anthony bond on 10-29-2024 pH (U) 6.0 [pH] 5.0 - 8.0 [facility] Urine sediment bacteria coun t by microscopy (number/high power field)Ordered By: Anthony Taylor on 10-29-2024 Bacteria LM.HPF (Urine sed) [#/Area] 0 /[HPF] None Seen [facility] Urine specific gravity measu rementOrdered By: Anthony Taylor on 10-29-2024 Specific gravity (U) [Rel density] 1.010 1.002-1.03 0 [facility] Urine urobilinogen measureme ntOrdered By: Anthony Taylor on 10-29-2024 Urobilinogen Ql (U) Normal mg/dl Normal [facility] White blood cell (WBC) count Ordered By: Anthony Taylor on 10-29-2024 WBC (Bld) [#/Vol] 5.8 10*3/uL 4.4-11.0 [facility] White blood cell countOrdere d By: Anthony Taylor on 10-29-2024 White blood cell count 5-10 SEEN /hpf 0-5 [facility] CNPNon 10-28-2024 CNPN Telephone (FAMPWS) MARI LOPEZ ([id number]) 1940 F Date Time Provider Department 10/28/24 [facility] During your visit today, we recorded the following information about you: Dede Reynolds RN 10/28/2024 4:25 PM Signed [facility]- phoned to report she spoke with caregiver, who informed Shruthi pt slept all night and has slept all day today. Has not been out of bed today. When Shruthi asked caregiver if pt has gotten up to use the bathroom, caregiver states pt is in a diaper. Shruthi states caregiver has not changed diaper today. Caregiver reports pt is not eating, not drinking, and is confused. Advised to ER for change in mental status. Shruthi agreeable and will call caregiver. Lizy Capone MD 11/03/2024 10:25 AM Signed Noted Lizy Capone MD Allergies As of Date: 10/28/2024 Noted Allergy Reaction BACTRIM (SULFAMETHOXAZOLE-TRIMETH*0 07/23/2016 4 - Hives Comments: Blisters: head to toe IBUPROFEN 11/08/2015 2 - Rash KEFZOL (CEFAZOLIN SODIUM) 08/09/2018 4 - Hives PEANUT 03/31/2023 10 - Anaphylaxis SULFA (SULFONAMIDE ANTIBIOTICS) 07/23/2016 4 - Hives 16 - Unknown Comments: Blisters: head to toe Date Reviewed: 10/24/2024 Reviewed by: Alex Lackey MA - Fully Assessed Reason for Visit: Patient concern [Other] Prescriptions as of 11/03/2024 - ELIQUIS 2.5 mg tab(s) Take 2.5 mg by mouth two times a day. - melatonin 3 mg tablet Take 1 tablet by mouth at bedtime as needed for insomnia. - sodium bicarbonate 650 mg tablet Take [...] Glucosamine-chondroitin, Fish-Oil Problem List As Of Date 10/28/2024 Noted Resolved Class 3 severe obesity with body mass index (BM*06/28/2003 BENIGN HYPERTENSION(aka HTN) [I10] 07/21/2003 ASTHMA UNSPECIFIED [J45.909] 07/21/2003 OTHER UNSPEC SLEEP APNEA(aka APNEA) [G47.30] 07/21/2003 Primary osteoarthritis of both knees [M17.0] 07/21/2003 THROMBOPHLEBITIS NOS(aka DVT) [I80.9] 07/21/2003 08/21/2009 PULMON EMBOLISM/INFARCT(aka EMBOLISM) [415.1] 07/21/2003 08/21/2009 VENTRAL HERNIA NEC [K43.9] 03/26/2004 07/01/2007 ASA CLASS III [1003] 05/07/2005 07/12/2021 INJURY TRUNK SITE NEC [I (more content not included)... [facility] JOHNMARI ([id number]) 1940 F Date Time Provider Department 10/27/24 [facility] During your visit today, we recorded the following information about you: Olga Dillard, KEVIN 10/27/2024 9:01 AM Signed Kamille with [facility] calls to request orders for wound [...] Signed Staff, Please reach out to the [facility] contact to verbally okay the patients recommended wound care needs Verbal order , yes!! Thanks , DO Hollis Wilson Cheryl, RN 10/27/2024 9:17 AM Signed Kamille with [facility] notified. Pamela Shafer RN Allergies As of Date: 10/27/2024 Noted Allergy Reaction BACTRIM (SULFAMETHOXAZOLE-TRIMETH*0 07/23/2016 4 - Hives Comments: Blisters: head to toe IBUPROFEN 11/08/2015 2 - Rash KEFZOL (CEFAZOLIN SODIUM) 08/09/2018 4 - Hives PEANUT 03/31/2023 10 - Anaphylaxis SULFA (SULFONAMIDE ANTIBIOTICS) 07/23/2016 4 - Hives 16 - Unknown Comments: Blisters: head to toe Date Reviewed: 10/24/2024 Reviewed by: Alxe Lackey MA - Fully Assessed Reason for [...] 10/27/2016: M (more content not included)... Normal [facility] Telephone (FAMPWS) MARI LOPEZ ([id number]) 1940 F Date Time Provider Department 10/27/24 [facility] During your visit today, we recorded the following information about you: Analia Gracia RN 10/27/2024 2:59 PM Signed Pt called in and reports she just saw Dr Capone on 10/24/24. She states she is in a wheelchair and isn't able to walk. Pt is requesting a referral to Palliative Care. She states she heard that if you have Palliative Care and have a medical appointment they will take you to them. Please call and advise Pt. KEVIN Ozuna Mark D, MD 11/03/2024 10:24 AM Signed OK for Palliative Care consult MD Ziyad Masters Kathryn, MA 11/03/2024 11:48 AM Signed See other TE 11/03/24. Alex Lackey MA Allergies As of Date: 10/27/2024 Noted Allergy [...] MA - Fully Assessed Reason for Visit: Referral for Pallitive care [Other] Primary Visit Diagnosis:Class 3 severe obesity with body mass index (BMI) of 40.0 to 44.9 in adult ([facility]) [E66.813, Z68.41] Other Visit Diagnoses:Primary osteoarthritis of both knees [M17.0] Anemia in chronic kidney disease, unspecified CKD stage [N18.9, D63.1] Hypothyroidism, acquired [E03.9] Renal failure, unspecified chronicity [N19] Chronic midline low back pain with sciatica, sciatica laterality unspecified [M54.40, G89.29] Lymphedema [I89.0] Chronic kidney disease, stage 4 (severe) ([facility]) [N18.4] Chronic obstructive pulmonary disease, unspecified COPD type ([facility]) [J44.9] Order(s):CONSULT TO PALLIATIVE CARE [[id number]] Order #: [id number]: 1 FUTURE Prescriptions as of 11/03/2024 - ELIQUIS 2.5 mg tab(s) Take 2.5 mg by mouth two times a day. - melatonin 3 mg tablet Take 1 tablet by mouth at bedtime as needed for insomnia. - sodium bicarbonate 650 mg tablet Take [...] 8.6-50 mg per tablet Take 1 tablet (more content not included)... Normal [facility] Telephone (FAMPWS) MARI LOPEZ ([id number]) 1940 F Date Time Provider Department 10/27/24 LIZY CAPONE During your visit today, we recorded the following information about you: Olga Dillard RN 10/27/2024 3:41 PM Signed Deanne OT calling from [facility] to report plan of care for patient and OT will visit patient one time a week for four weeks. OT will work with patient on ADL's and functioning. Deanne reports that patient has an additional wound to leg. Notified that nursing has new orders for wounds. Friend (Cayla) was concerned for cognition. Patient is alert and oriented but foggy at times. Deanne reports that patient is not getting a round well. Confined to a w/c and safety is an issue for falls. Reports that patient is aware and has had a talk with friend who is not able to take care of her. Patient is to be looking into a private Aide or AL placement. SW with [facility] is currently looking into w/c transportation to take her to wound center appt on Thursday. Recommended if patient's condition continues to deteriorate she should go back to ER. Patient's friend is keeping a close eye on her for this. KEVIN Banerjee Jesse, APRN.CJ 10/28/2024 7:03 AM Signed Briana noted. Will hold for Dr. Capone for his review. Mulugeta Jennings APRN.Lizy Rodriguez MD 11/03/2024 10:24 AM Signed Noted Lizy Capone MD Allergies As of Date: 10/27/2024 Noted Allergy Reaction BACTRIM (SULFAMETHOXAZOLE-TRIMETH*0 07/23/2016 4 - Hives Comments: Blisters: head to toe IBUPROFEN 11/08/2015 2 - Rash KEFZOL (CEFAZOLIN SODIUM) 08/09/2018 4 - Hives PEANUT 03/31/2023 10 - Anaphylaxis SULFA (SULFONAMIDE ANTIBIOTICS) 07/23/2016 4 - Hives 16 - Unknown Comments: Blisters: head to toe Date Reviewed: 10/24/2024 Reviewed by: Alex Lackey MA - Fully Assessed Prescriptions as of 11/03/2024 - ELIQUIS 2.5 mg tab(s) Take 2.5 mg by mouth two times a day. - melatonin 3 mg tablet Take 1 tablet by mouth at bedtime as needed for insomnia. - sodium bicarbonate 650 mg tablet Take [...] zinc, Glucosamine-chondroitin, Fish-Oil Problem List As Of (more content not included)... Normal [facility] Basic Metabolic Profile (BMP )on 10-26-2024 BUN Normal 4-19 [facility] Comment on above: Result Comment: Canc elled via OM: Order cancelled - Patient discharged Performed By: #### L 500.2500, L100.0100 ####[facility] [address] [place], [address] BUN/CRE Normal 10-20 [facility] Comment on above: Result Comment: Canc elled via OM: Order cancelled - Patient discharged Performed By: #### L 500.2500, L100.0100 ####[facility] [address] [place], [address] Calcium Normal 7.6-11.0 [facility] Comment on above: Result Comment: Canc elled via OM: Order cancelled - Patient discharged Performed By: #### L 500.2500, L100.0100 ####[facility] [address] [place], [address] CL Normal 98-108 [facility] Comment on above: Result Comment: Canc elled via OM: Order cancelled - Patient discharged Performed By: #### L 500.2500, L100.0100 ####[facility] [address] [place], [address] CO2 Normal 21.0-32.0 [facility] Comment on above: Result Comment: Canc elled via OM: Order cancelled - Patient discharged Performed By: #### L 500.2500, L100.0100 ####[facility] [address] [place], [address] CREAT,SERUM Normal 0.70-1.20 [facility] Comment on above: Result Comment: Canc elled via OM: Order cancelled - Patient discharged Performed By: #### L 500.2500, L100.0100 ####[facility] [address] [place], [address] eGFR Normal >60 [facility] Comment on above: Result Comment: Canc elled via OM: Order cancelled - Patient discharged Performed By: #### L 500.2500, L100.0100 ####[facility] [address] [place], [address] GAP Normal 5-15 [facility] Comment on above: Result Comment: Canc elled via OM: Order cancelled - Patient discharged Performed By: #### L 500.2500, L100.0100 ####[facility] [address] [place], [address] GLU Normal 70-99 [facility] Comment on above: Result Comment: Canc elled via OM: Order cancelled - Patient discharged Performed By: #### L 500.2500, L100.0100 ####[facility] [address] [place], [address] Potassium Normal 3.3-5.1 [facility] Comment on above: Result Comment: Canc elled via OM: Order cancelled - Patient discharged Performed By: #### L 500.2500, L100.0100 ####[facility] [address] [place], [address] Basic Metabolic Profile (BMP) Normal 133-145 [facility] Comment on above: Result Comment: Canc elled via OM: Order cancelled - Patient discharged Performed By: #### L 500.2500, L100.0100 ####[facility] [address] [place], [address] CBC W/Diff, Automatedon 07-2 Absolute Neut Normal 2.0-7.7 [facility] Comment on above: Result Comment: Canc elled via OM: Order cancelled - Patient discharged Performed By: #### L 500.2500, L100.0100 ####[facility] [address] [place], [address] HCT Normal 37-47 [facility] Comment on above: Result Comment: Canc elled via OM: Order cancelled - Patient discharged Performed By: #### L 500.2500, L100.0100 ####[facility] [address] [place], [address] HGB Normal 12.0-15.0 [facility] Comment on above: Result Comment: Canc elled via OM: Order cancelled - Patient discharged Performed By: #### L 500.2500, L100.0100 ####[facility] [address] [place], [address] MCH Normal 27.0-32.0 [facility] Comment on above: Result Comment: Canc elled via OM: Order cancelled - Patient discharged Performed By: #### L 500.2500, L100.0100 ####[facility] [address] [place], [address] MCHC Normal 32-36 [facility] Comment on above: Result Comment: Canc elled via OM: Order cancelled - Patient discharged Performed By: #### L 500.2500, L100.0100 ####[facility] [address] [place], [address] MCV Normal 81-99 [facility] Comment on above: Result Comment: Canc elled via OM: Order cancelled - Patient discharged Performed By: #### L 500.2500, L100.0100 ####[facility] [address] [place], [address] NEUT% Normal 47-70 [facility] Comment on above: Result Comment: Canc elled via OM: Order cancelled - Patient discharged Performed By: #### L 500.2500, L100.0100 ####[facility] [address] [place], [address] PLT Normal 150-450 [facility] Comment on above: Result Comment: Canc elled via OM: Order cancelled - Patient discharged Performed By: #### L 500.2500, L100.0100 ####[facility] [address] [place], [address] RBC Normal 4.2-5.4 [facility] Comment on above: Result Comment: Canc elled via OM: Order cancelled - Patient discharged Performed By: #### L 500.2500, L100.0100 ####[facility] [address] [place], [address] RDW CV Normal 11.6-14.6 [facility] Comment on above: Result Comment: Canc elled via OM: Order cancelled - Patient discharged Performed By: #### L 500.2500, L100.0100 ####[facility] [address] [place], [address] RDW SD Normal 35.1-43.9 [facility] Comment on above: Result Comment: Canc elled via OM: Order cancelled - Patient discharged Performed By: #### L 500.2500, L100.0100 ####[facility] [address] [place], [address] WBC Normal 4.4-11.0 [facility] Comment on above: Result Comment: Canc elled via OM: Order cancelled - Patient discharged Performed By: #### L 500.2500, L100.0100 ####[facility] [address] [place], [address] Emergency Department Summary on 10-26-2024 Emergency Department Summary Normal [facility] Cardiology Visit Reporton Cardiology Visit Report Normal [facility] CNOVon 10-24-2024 CNOV Office Visit (FAMPWS ) MARI LOPEZ ([id number]) 1940 F Date Time Provider Department 10/24/24 [...] 7 Day TCM Pt was admitted to [facility] on 09/28/24, following a fall, for lower extremity pain, and was discharged on 10/04/24 to TCU with debility. She was sent back down to ER on 10/12/24 for chest pains. Discharged home 10/20/24 with diagnosis of chronic renal failure, stage 4. She was discharged home with her friend, Alex. Follows with Cardio, environmental project manager, urologist, going to wound center, neurologist, ortho. [...] at home > 90%. -Pt discharged from [facility] on 10/20/24. -Admitted for: Chronic renal failure, stage 4 Below copied from [employer]: History of Present Illness Chief Complaint: Chest [...] inform me that Dr. Jackson is her director of religious life. She is on an anticoagulant. Patient did [...] bid. Cor (more content not included)... Normal [facility] MAR[facility]OPE[facility] ([id number]) 1940 F Date Time Provider Department 10/21/24 LIZY CAPONE During your visit today, we recorded the following information about you: Lora Najera RN 10/21/2024 12:51 PM Signed Lora from [facility] calls and states that patient was restarted for prison services and patient will be seen 1 [...] PM Signed Noted Seen in office today iLzy Capone MD Allergies As of Date: 10/21/2024 [...] osteoarthritis of (more content not included)... [facility] JOHNMARI Gerry ([id number]) 1940 F Date Time Provider Department 10/20/24 LIZY CAPONE During your visit today, we recorded the following information about you: Analia Gracia RN 10/20/2024 12:14 PM Signed Natalia [facility] KAROLINE called in and reports Pt will be discharged form TCU tomorrow with SN/PT/OT/ST. Pt was admitted for encephalopathy, Chronic Renal Disease, and R lower extremity and thigh wound She is asking if provider will follow. Please call and advise. KEVIN Ozuna Mark D, MD 10/20/2024 2:09 PM Signed I will follow for [facility] MD Samia Masters Amanda, RN 10/20/2024 2:18 PM Signed [facility] called and is notified of providers message. [...] [1003] 05/07/2005 07/12/2021 INJURY TRUNK SITE NEC [[id number]] 01/16/2006 07/01/2007 Anemia in chronic kidney disease (CKD) [N18.9, *03/17/2006 Non-Healing Surgical Wound [T81.89XA] 03/16/2007 05/18/2009 FEMALE STRESS INCONTINENCE [N39.3] 07/12/2008 MASS IN SUBCUTANEOUS TISSUE [R22.9] 07/21/2008 08/18/2018 Pain in Joint, Lower Leg [M25.569] 11/14/2008 08/21/2009 Rotator cuff syndrome [M75.100] 02/19/2011 Insomnia [G47.00] 07/30/2011 Screening for colon cancer [Z12.11] 11/24/2016 04 (more content not included)... Normal [facility] Absolute lymphocyte countOrd ered By: Gautam Hardy on 10-19-2024 Lymphocytes Auto (Unsp spec) [#/Vol] 1.84 10*3/uL 0.83-4.51 [facility] Anion gap in Serum or Plasma Ordered By: Gautam Hardy on 10-19-2024 Anion gap [Moles/Vol] 11 mmol/L - [facility] Automated lymphocyte count a s percentage of total leukocytesOrdered By: Gautam Hardy on 10-19-2024 Lymphocytes/100 WBC Auto (Unsp spec) 39.9 % [facility] BUN/creatinine ratioOrdered By: Gautam Hardy on 10-19-2024 Urea nitrogen/Creatinine [Mass ratio] 19.7 mg/mg 01-23 [facility] Basic Metabolic Profile (BMP )on 10-19-2024 BUN/CRE 19.7 RATIO Normal 01-23 [facility] Comment on above: Performed By: #### L 100.0100, L500.2500 ####[facility] [address] [place], [address] Calcium [Mass/Vol] 8.3 mg/dL Normal 7.6-11.0 [facility] Comment on above: Performed By: #### L 100.0100, L500.2500 ####[facility] [address] [place], [address] Chloride [Moles/Vol] 110 mmol/L High 98-108 [facility] Comment on above: Performed By: #### L 100.0100, L500.2500 ####[facility] [address] [place], [address] CO2 [Moles/Vol] 22.5 mmol/L Normal 21.0-32.0 [facility] Comment on above: Performed By: #### L 100.0100, L500.2500 ####[facility] [address] [place], [address] Creatinine [Mass/Vol] 2.67 mg/dL High 0.70-1.20 [facility] Comment on above: Performed By: #### L 100.0100, L500.2500 ####[facility] [address] [place], [address] ECRCL 20.12 ml/min Low 50-250 [facility] Comment on above: Performed By: #### L 100.0100, L500.2500 ####[facility] [address] [place], [address] GAP 11 Normal 5-15 [facility] Comment on above: Performed By: #### L 100.0100, L500.2500 ####[facility] [address] [place], [address] GFR/1.73 sq M.predicted among non-blacks MDRD (S/P/Bld) [Vol rate/Area] 17 mL/min/{1.73_m2} Low >60 [facility] Comment on above: Result Comment: mL/m in/1.73m2 CKD-EPI Creatinine Equation (2020) Performed By: #### L 100.0100, L500.2500 ####[facility] [address] [place], [address] Glucose [Mass/Vol] 80 mg/dL Normal 70-99 [facility] Comment on above: Performed By: #### L 100.0100, L500.2500 ####[facility] [address] [place], [address] Potassium [Moles/Vol] 4.3 mmol/L Normal 3.3-5.1 [facility] Comment on above: Performed By: #### L 100.0100, L500.2500 ####[facility] [address] [place], [address] Sodium [Moles/Vol] 144 mmol/L Normal 133-145 [facility] Comment on above: Performed By: #### L 100.0100, L500.2500 ####[facility] [address] [place], [address] Urea nitrogen [Mass/Vol] 53 mg/dL High 4-19 [facility] Comment on above: Performed By: #### L 100.0100, L500.2500 ####[facility] [address] [place], [address] Basophil percentageOrdered B y: Gautam Hardy on 10-19-2024 Basophils/100 WBC (Bld) 0.9 % 0-1 [facility] CBC W/Diff, Automatedon 07 Absolute Lymph 1.84 X10 3/uL Normal 0.83-4.51 [facility] Comment on above: Performed By: #### L 100.0100, L500.2500 ####[facility] [address] [place], [address] Absolute Neut 2.0 X10 3/uL Normal 2.0-7.7 [facility] Comment on above: Performed By: #### L 100.0100, L500.2500 ####[facility] [address] [place], [address] Basophils/100 WBC (Bld) 0.9 % Normal 0-1 [facility] Comment on above: Performed By: #### L 100.0100, L500.2500 ####[facility] [address] [place], [address] Eosinophils/100 WBC (Bld) 7.8 % High 0-5 [facility] Comment on above: Performed By: #### L 100.0100, L500.2500 ####[facility] [address] [place], [address] Erythrocyte distribution width (RBC) [Ratio] 14.1 % Normal 11.6-14.6 [facility] Comment on above: Performed By: #### L 100.0100, L500.2500 ####[facility] [address] [place], [address] Hematocrit (Bld) [Volume fraction] 28.1 % Low 37-47 [facility] Comment on above: Performed By: #### L 100.0100, L500.2500 ####[facility] [address] [place], [address] Hemoglobin (Bld) [Mass/Vol] 8.6 g/dL Low 12.0-15.0 [facility] Comment on above: Performed By: #### L 100.0100, L500.2500 ####[facility] [address] [place], [address] IG% 0.200 Normal 0.0-0.9 [facility] Comment on above: Result Comment: IG% - Immature Granulocytes (promyelocytes, myelocytes andmetamyelocytes) > 1% indicates that a LEFT SHIFT is Present. Performed By: #### L 100.0100, L500.2500 ####[facility] [address] [place], [address] Lymphocytes/100 WBC (Bld) 39.9 % Normal 19-41 [facility] Comment on above: Performed By: #### L 100.0100, L500.2500 ####[facility] [address] [place], [address] MCH (RBC) [Entitic mass] 32.2 pg High 27.0-32.0 [facility] Comment on above: Performed By: #### L 100.0100, L500.2500 ####[facility] [address] [place], [address] MCHC (RBC) [Mass/Vol] 30.6 g/dL Low 32-36 [facility] Comment on above: Performed By: #### L 100.0100, L500.2500 ####[facility] [address] [place], [address] MCV (RBC) [Entitic vol] 105.2 fL High 81-99 [facility] Comment on above: Performed By: #### L 100.0100, L500.2500 ####[facility] [address] [place], [address] Monocytes/100 WBC (Bld) 7.8 % Normal 0-10 [facility] Comment on above: Performed By: #### L 100.0100, L500.2500 ####[facility] [address] [place], [address] Neutrophils/100 WBC (Bld) 43.4 % Low 47-70 [facility] Comment on above: Performed By: #### L 100.0100, L500.2500 ####[facility] [address] [place], [address] Nucleated RBC (Bld) [#/Vol] 0 10*3/uL Normal 0-5 [facility] Comment on above: Performed By: #### L 100.0100, L500.2500 ####[facility] [address] [place], [address] Platelet mean volume (Bld) [Entitic vol] 13.2 fL High 6.2-12.0 [facility] Comment on above: Performed By: #### L 100.0100, L500.2500 ####[facility] [address] [place], [address] Platelets (Bld) [#/Vol] 185 10*3/uL Normal 150-450 [facility] Comment on above: Performed By: #### L 100.0100, L500.2500 ####[facility] [address] [place], [address] RBC (Bld) [#/Vol] 2.67 10*6/uL Low 4.2-5.4 [facility] Comment on above: Performed By: #### L 100.0100, L500.2500 ####[facility] [address] [place], [address] RDW SD 53.2 fl High 35.1-43.9 [facility] Comment on above: Performed By: #### L 100.0100, L500.2500 ####[facility] [address] [place], [address] WBC (Bld) [#/Vol] 4.6 10*3/uL Normal 4.4-11.0 [facility] Comment on above: Performed By: #### L 100.0100, L500.2500 ####[facility] [address] [place], [address] Carbon dioxide, total [Moles /volume] in Central venous bloodOrdered By: Gautam Hardy on 10-19-2024 CO2 [Moles/Vol] 22.5 mmol/L 21.0-32.0 [facility] Chloride assayOrdered By: Fernando Hardy on 10-19-2024 Chloride [Moles/Vol] 110 mmol/L High 98-108 [facility] Eosinophil percentageOrdered By: Gautam Hardy on 10-19-2024 Eosinophils/100 WBC (Bld) 7.8 % High 0-5 [facility] Erythrocyte distribution wid th ratioOrdered By: Gautam Hardy on 10-19-2024 Erythrocyte distribution width (RBC) [Ratio] 14.1 % 11.6-14.6 [facility] Erythrocyte distribution wid th standard deviationOrdered By: Gautam Hardy on 10-19-2024 Erythrocyte distribution width (RBC) [Ratio] 53.2 fl High 35.1-43.9 [facility] Glomerular filtration rate ( GFR) estimation/1.73 sq m using serum, plasma, or whole bOrdered By: Gautam Hardy on 10-19-2024 GFR/1.73 sq M.predicted among non-blacks MDRD (S/P/Bld) [Vol rate/Area] 17 mL/min/{1.73_m2} Low >60 [facility] Hematocrit Auto (Bld) [Volum e fraction]Ordered By: Gautam Hardy on 10-19-2024 Hematocrit (Bld) [Volume fraction] 28.1 % Low 37-47 [facility] Hemoglobin measurementOrdere d By: Gautam Hardy 10-19-2024 Hemoglobin (Bld) [Mass/Vol] 8.6 g/dL Low 12.0-15.0 [facility] Immature granulocytes/100 WB C Auto (Bld)Ordered By: Gautam Hardy 10-19-2024 Immature granulocytes/100 WBC (Bld) 0.200 % 0.0-0.9 [facility] MCV (mean corpuscular volume ) determinationOrdered By: Gautam Hardy 10-19-2024 MCV (RBC) [Entitic vol] 105.2 fL High 81-99 [facility] Mean corpuscular hemoglobin (MCH) determinationOrdered By: Gautam Hardy 10-19-2024 MCH (RBC) [Entitic mass] 32.2 pg High 27.0-32.0 [facility] Monocyte percentageOrdered B y: Gautam Hardy 10-19-2024 Monocytes/100 WBC (Bld) 7.8 % 0-10 [facility] [place] [facility] Neutrophil percentageOrdered By: Gautam Hardy on 10-19-2024 Neutrophils/100 WBC (Bld) 43.4 % Low 47-70 [facility] Platelet countOrdered By: Fernando Hardy on 10-19-2024 Platelets (Bld) [#/Vol] 185 10*3/uL 150-450 [facility] Potassium measurement (mass/ volume)Ordered By: Gautam Hardy on 10-19-2024 Potassium (Unsp spec) [Mass/Vol] 4.3 mmol/L 3.3-5.1 [facility] RBC Auto (Bld) [#/Vol]Ordere d By: Gautam Hardy on 10-19-2024 RBC (Bld) [#/Vol] 2.67 10*6/uL Low 4.2-5.4 [facility] Serum creatinine measurement (mass/volume)Ordered By: Gautam Hardy on 10-19-2024 Creatinine [Mass/Vol] 2.67 mg/dL High 0.70-1.20 [facility] Serum glucose measurement (m ass/volume)Ordered By: Gautam Hardy on 10-19-2024 Glucose [Mass/Vol] 80 mg/dL 70-99 [facility] Serum or plasma calcium farheen urement (mass/volume)Ordered By: Gautam Hardy on 10-19-2024 Calcium [Mass/Vol] 8.3 mg/dL 7.6-11.0 [facility] Serum or plasma urea nitroge n measurement (mass/volume)Ordered By: Gautam Hardy on 10-19-2024 Urea nitrogen [Mass/Vol] 53 mg/dL High 4-19 [facility] Sodium levelOrdered By: Gautam Hardy on 10-19-2024 Sodium [Moles/Vol] 144 mmol/L 133-145 [facility] White blood cell (WBC) count Ordered By: Gautam Hardy on 10-19-2024 WBC (Bld) [#/Vol] 4.6 10*3/uL 4.4-11.0 [facility] Consultation - Nephrologyon 10-14-2024 Consultation - Nephrology Normal [facility] EGD Reporton 10-14-2024 EGD Report Normal [facility] MR/POSTOP.ANEon 10-14-2024 MR/POSTOP.ANE Normal [facility] MR/WHAYFGBD1zi 10-14-2024 MR/POSTOPAN2 Normal [facility] HH, Hemoglobin AND Hematocri ton 10-13-2024 Hematocrit (Bld) [Volume fraction] 28.5 % Low 37-47 [facility] Comment on above: Performed By: #### L 100.0600 ####[facility] [address] [place], [place], [phone] Hemoglobin (Bld) [Mass/Vol] 8.3 g/dL Low 12.0-15.0 [facility] Comment on above: Performed By: #### L 100.0600 ####[facility] [address] [place], [place], [phone] Hematocrit Auto (Bld) [Volum e fraction]Ordered By: Gautam Hardy on 10-13-2024 Hematocrit (Bld) [Volume fraction] 28.5 % Low [address] Hemoglobin measurementOrdere d By: Gautam Hardy on 10-13-2024 Hemoglobin (Bld) [Mass/Vol] 8.3 g/dL Low 12.0-15.0 [facility] Stool Occult Blood iFOBon STOB Positive Normal [facility] Comment on above: Performed By: #### M 100.7900 ####[facility] [address] [place], [place], [phone] Stool gastrointestinal hemog lobin detection by immunologic methodOrdered By: Gautam Hardy on 10-13-2024 Lower GI hemoglobin IA Ql (Stl) Positive Abnormal [facility] Absolute lymphocyte countOrd ered By: Alexis Friend on 10-12-2024 Lymphocytes Auto (Unsp spec) [#/Vol] 1.25 10*3/uL 0.83-4.51 [facility] Absolute lymphocyte countOrd ered By: Gautam Hardy on 10-12-2024 Lymphocytes Auto (Unsp spec) [#/Vol] 1.62 10*3/uL 0.83-4.51 [facility] Anion gap in Serum or Plasma Ordered By: Alexis Friend on 10-12-2024 Anion gap [Moles/Vol] 12 mmol/L 08-18 [facility] Anion gap in Serum or Plasma Ordered By: Gautam Hardy on 10-12-2024 Anion gap [Moles/Vol] 12 mmol/L 08-18 [facility] Automated lymphocyte count a s percentage of total leukocytesOrdered By: Alexis Friend on 10-12-2024 Lymphocytes/100 WBC Auto (Unsp spec) 19.0 % [facility] Automated lymphocyte count a s percentage of total leukocytesOrdered By: Gautam Hardy on 10-12-2024 Lymphocytes/100 WBC Auto (Unsp spec) 37.9 % [facility] BUN/creatinine ratioOrdered By: Alexis Friend on 10-12-2024 Urea nitrogen/Creatinine [Mass ratio] 23.9 mg/mg High 01-23 [facility] BUN/creatinine ratioOrdered By: Gautam Hardy on 10-12-2024 Urea nitrogen/Creatinine [Mass ratio] 25.7 mg/mg High 01-23 [facility] Basic Metabolic Profile (BMP )on 10-12-2024 BUN/CRE 25.[address] [facility] Comment on above: Performed By: #### L 500.2500, L100.0100 ####[facility] [address] [place], [address] Calcium [Mass/Vol] 8.0 mg/dL Normal 7.6-11.0 [facility] Comment on above: Performed By: #### L 500.2500, L100.0100 ####[facility] [address] [place], [address] Chloride [Moles/Vol] 110 mmol/L High 98-108 [facility] Comment on above: Performed By: #### L 500.2500, L100.0100 ####[facility] [address] [place], [address] CO2 [Moles/Vol] 21.9 mmol/L Normal 21.0-32.0 [facility] Comment on above: Performed By: #### L 500.2500, L100.0100 ####[facility] [address] [place], [address] Creatinine [Mass/Vol] 2.88 mg/dL High 0.70-1.20 [facility] Comment on above: Performed By: #### L 500.2500, L100.0100 ####[facility] [address] [place], [address] ECRCL 18.44 ml/min Low 50-250 [facility] Comment on above: Performed By: #### L 500.2500, L100.0100 ####[facility] [address] [place], [address] GAP 12 Normal 5-15 [facility] Comment on above: Performed By: #### L 500.2500, L100.0100 ####[facility] [address] [place], [address] GFR/1.73 sq M.predicted among non-blacks MDRD (S/P/Bld) [Vol rate/Area] 16 mL/min/{1.73_m2} Low >60 [facility] Comment on above: Result Comment: mL/m in/1.73m2 CKD-EPI Creatinine Equation (2020) Performed By: #### L 500.2500, L100.0100 ####[facility] [address] [place], [address] Glucose [Mass/Vol] 84 mg/dL Normal 70-99 [facility] Comment on above: Performed By: #### L 500.2500, L100.0100 ####[facility] [address] [place], [address] Potassium [Moles/Vol] 4.3 mmol/L Normal 3.3-5.1 [facility] Comment on above: Performed By: #### L 500.2500, L100.0100 ####[facility] [address] [place], [address] Sodium [Moles/Vol] 144 mmol/L Normal 133-145 [facility] Comment on above: Performed By: #### L 500.2500, L100.0100 ####[facility] [address] [place], [address] Urea nitrogen [Mass/Vol] 74 mg/dL High 4-19 [facility] Comment on above: Performed By: #### L 500.2500, L100.0100 ####[facility] [address] [place], [address] Basophil percentageOrdered B y: Alexis Friend on 10-12-2024 Basophils/100 WBC (Bld) 0.5 % 0-1 [facility] Basophil percentageOrdered B y: Gautam Antony on 10-12-2024 Basophils/100 WBC (Bld) 0.9 % 0-1 [facility] Bilirubin, totalOrdered By: Alexis Friend on 10-12-2024 Bilirubin [Mass/Vol] 0.23 mg/dL 0.00-1.30 [facility] CBC W/Diff, Automatedon Absolute Lymph 1.25 X10 3/uL Normal 0.83-4.51 [facility] Comment on above: Performed By: #### L 100.0100, L500.4050 ####[facility] [address] [place], [address] Absolute Neut 4.6 X10 3/uL Normal 2.0-7.7 [facility] Comment on above: Performed By: #### L 100.0100, L500.4050 ####[facility] [address] [place], [address] Basophils/100 WBC (Bld) 0.5 % Normal 0-1 [facility] Comment on above: Performed By: #### L 100.0100, L500.4050 ####[facility] [address] [place], [address] Eosinophils/100 WBC (Bld) 5.2 % High 0-5 [facility] Comment on above: Performed By: #### L 100.0100, L500.4050 ####[facility] [address] [place], [address] Erythrocyte distribution width (RBC) [Ratio] 14.3 % Normal 11.6-14.6 [facility] Comment on above: Performed By: #### L 100.0100, L500.4050 ####[facility] [address] [place], [address] Hematocrit (Bld) [Volume fraction] 31.0 % Low 37-47 [facility] Comment on above: Performed By: #### L 100.0100, L500.4050 ####[facility] [address] [place], [address] Hemoglobin (Bld) [Mass/Vol] 9.1 g/dL Low 12.0-15.0 [facility] Comment on above: Performed By: #### L 100.0100, L500.4050 ####[facility] [address] [place], [address] IG% 0.800 Normal 0.0-0.9 [facility] Comment on above: Result Comment: IG% - Immature Granulocytes (promyelocytes, myelocytes andmetamyelocytes) > 1% indicates that a LEFT SHIFT is Present. Performed By: #### L 100.0100, L500.4050 ####[facility] [address] [place], [address] Lymphocytes/100 WBC (Bld) 19.0 % Normal 19-41 [facility] Comment on above: Performed By: #### L 100.0100, L500.4050 ####[facility] [address] [place], [address] MCH (RBC) [Entitic mass] 31.9 pg Normal 27.0-32.0 [facility] Comment on above: Performed By: #### L 100.0100, L500.4050 ####[facility] [address] [place], [address] MCHC (RBC) [Mass/Vol] 29.4 g/dL Low 32-36 [facility] Comment on above: Performed By: #### L 100.0100, L500.4050 ####[facility] [address] [place], [address] MCV (RBC) [Entitic vol] 108.8 fL High 81-99 [facility] Comment on above: Performed By: #### L 100.0100, L500.4050 ####[facility] [address] [place], [address] Monocytes/100 WBC (Bld) 5.3 % Normal 0-10 [facility] Comment on above: Performed By: #### L 100.0100, L500.4050 ####[facility] [address] [place], [address] Neutrophils/100 WBC (Bld) 69.2 % Normal 47-70 [facility] Comment on above: Performed By: #### L 100.0100, L500.4050 ####[facility] [address] [place], [address] Nucleated RBC (Bld) [#/Vol] 0 10*3/uL Normal 0-5 [facility] Comment on above: Performed By: #### L 100.0100, L500.4050 ####[facility] [address] [place], [address] Platelet mean volume (Bld) [Entitic vol] 13.4 fL High 6.2-12.0 [facility] Comment on above: Performed By: #### L 100.0100, L500.4050 ####[facility] [address] [place], [address] Platelets (Bld) [#/Vol] 183 10*3/uL Normal 150-450 [facility] Comment on above: Performed By: #### L 100.0100, L500.4050 ####[facility] [address] [place], [address] RBC (Bld) [#/Vol] 2.85 10*6/uL Low 4.2-5.4 [facility] Comment on above: Performed By: #### L 100.0100, L500.4050 ####[facility] [address] [place], [address] RDW SD 57.7 fl High 35.1-43.9 [facility] Comment on above: Performed By: #### L 100.0100, L500.4050 ####[facility] [address] [place], [address] WBC (Bld) [#/Vol] 6.6 10*3/uL Normal 4.4-11.0 [facility] Comment on above: Performed By: #### L 100.0100, L500.4050 ####[facility] [address] [place], [address] Absolute Lymph 1.62 X10 3/uL Normal 0.83-4.51 [facility] Comment on above: Performed By: #### L 500.2500, L100.0100 ####[facility] [address] [place], [address] Absolute Neut 2.0 X10 3/uL Normal 2.0-7.7 [facility] Comment on above: Performed By: #### L 500.2500, L100.0100 ####[facility] [address] [place], [address] Basophils/100 WBC (Bld) 0.9 % Normal 0-1 [facility] Comment on above: Performed By: #### L 500.2500, L100.0100 ####[facility] [address] [place], [address] Eosinophils/100 WBC (Bld) 7.7 % High 0-5 [facility] Comment on above: Performed By: #### L 500.2500, L100.0100 ####[facility] [address] [place], [address] Erythrocyte distribution width (RBC) [Ratio] 14.2 % Normal 11.6-14.6 [facility] Comment on above: Performed By: #### L 500.2500, L100.0100 ####[facility] [address] [place], [address] Hematocrit (Bld) [Volume fraction] 26.9 % Low 37-47 [facility] Comment on above: Performed By: #### L 500.2500, L100.0100 ####[facility] [address] [place], [address] Hemoglobin (Bld) [Mass/Vol] 7.9 g/dL Low 12.0-15.0 [facility] Comment on above: Performed By: #### L 500.2500, L100.0100 ####[facility] [address] [place], [address] IG% 0.200 Normal 0.0-0.9 [facility] Comment on above: Result Comment: IG% - Immature Granulocytes (promyelocytes, myelocytes andmetamyelocytes) > 1% indicates that a LEFT SHIFT is Present. Performed By: #### L 500.2500, L100.0100 ####[facility] [address] [place], [address] Lymphocytes/100 WBC (Bld) 37.9 % Normal 19-41 [facility] Comment on above: Performed By: #### L 500.2500, L100.0100 ####[facility] [address] [place], [address] MCH (RBC) [Entitic mass] 32.0 pg Normal 27.0-32.0 [facility] Comment on above: Performed By: #### L 500.2500, L100.0100 ####[facility] [address] [place], [address] MCHC (RBC) [Mass/Vol] 29.4 g/dL Low 32-36 [facility] Comment on above: Performed By: #### L 500.2500, L100.0100 ####[facility] [address] [place], [address] MCV (RBC) [Entitic vol] 108.9 fL High 81-99 [facility] Comment on above: Performed By: #### L 500.2500, L100.0100 ####[facility] [address] [place], [address] Monocytes/100 WBC (Bld) 7.7 % Normal 0-10 [facility] Comment on above: Performed By: #### L 500.2500, L100.0100 ####[facility] [address] [place], [address] Neutrophils/100 WBC (Bld) 45.6 % Low 47-70 [facility] Comment on above: Performed By: #### L 500.2500, L100.0100 ####[facility] [address] [place], [address] Nucleated RBC (Bld) [#/Vol] 0 10*3/uL Normal 0-5 [facility] Comment on above: Performed By: #### L 500.2500, L100.0100 ####[facility] [address] [place], [address] Platelet mean volume (Bld) [Entitic vol] 13.2 fL High 6.2-12.0 [facility] Comment on above: Performed By: #### L 500.2500, L100.0100 ####[facility] [address] [place], [address] Platelets (Bld) [#/Vol] 153 10*3/uL Normal 150-450 [facility] Comment on above: Performed By: #### L 500.2500, L100.0100 ####[facility] [address] [place], [address] RBC (Bld) [#/Vol] 2.47 10*6/uL Low 4.2-5.4 [facility] Comment on above: Performed By: #### L 500.2500, L100.0100 ####[facility] [address] [place], [address] RDW SD 56.0 fl High 35.1-43.9 [facility] Comment on above: Performed By: #### L 500.2500, L100.0100 ####[facility] [address] [place], [address] WBC (Bld) [#/Vol] 4.3 10*3/uL Low 4.4-11.0 [facility] Comment on above: Performed By: #### L 500.2500, L100.0100 ####[facility] [address] [place], [address] Carbon dioxide, total [Moles /volume] in Central venous bloodOrdered By: Alexis Friend on 10-12-2024 CO2 [Moles/Vol] 22.8 mmol/L 21.0-32.0 [facility] Carbon dioxide, total [Moles /volume] in Central venous bloodOrdered By: Gautam Hardy on 10-12-2024 CO2 [Moles/Vol] 21.9 mmol/L 21.0-32.0 [facility] Chloride assayOrdered By: Simi Friend on 07-09-2025 Chloride [Moles/Vol] 111 mmol/L High 98-108 [facility] Chloride assayOrdered By: Fernando Hardy on 10-12-2024 Chloride [Moles/Vol] 110 mmol/L High 98-108 [facility] Comprehensive Metabolic Prof ilon 10-12-2024 Albumin [Mass/Vol] 3.1 g/dL Low 3.4-4.8 [facility] Comment on above: Performed By: #### L 100.0100, L500.4050 ####[facility] [address] [place], [address] Albumin/Globulin [Mass ratio] 1.1 {ratio} Normal 0.9-2.4 [facility] Comment on above: Performed By: #### L 100.0100, L500.4050 ####[facility] [address] [place], [address] ALK PHOS 134 U/L High 35-104 [facility] Comment on above: Performed By: #### L 100.0100, L500.4050 ####[facility] [address] [place], [address] ALT [Catalytic activity/Vol] 100 U/L High <=34 [facility] Comment on above: Performed By: #### L 100.0100, L500.4050 ####[facility] [address] [place], [address] AST [Catalytic activity/Vol] 66 U/L High <=31 [facility] Comment on above: Performed By: #### L 100.0100, L500.4050 ####[facility] [address] [place], [address] Bilirubin [Mass/Vol] 0.23 mg/dL Normal 0.00-1.30 [facility] Comment on above: Performed By: #### L 100.0100, L500.4050 ####[facility] [address] [place], [address] BUN/CRE 23.9 RATIO High 10-20 [facility] Comment on above: Performed By: #### L 100.0100, L500.4050 ####[facility] [address] [place], [address] Calcium [Mass/Vol] 8.3 mg/dL Normal 7.6-11.0 [facility] Comment on above: Performed By: #### L 100.0100, L500.4050 ####[facility] [address] [place], [address] Chloride [Moles/Vol] 111 mmol/L High 98-108 [facility] Comment on above: Performed By: #### L 100.0100, L500.4050 ####[facility] [address] [place], [address] CO2 [Moles/Vol] 22.8 mmol/L Normal 21.0-32.0 [facility] Comment on above: Performed By: #### L 100.0100, L500.4050 ####[facility] [address] [place], [address] Creatinine [Mass/Vol] 3.01 mg/dL High 0.70-1.20 [facility] Comment on above: Performed By: #### L 100.0100, L500.4050 ####[facility] [address] [place], [address] ECRCL 18.75 ml/min Low 50-250 [facility] Comment on above: Performed By: #### L 100.0100, L500.4050 ####[facility] [address] [place], [address] GAP 12 Normal 5-15 [facility] Comment on above: Performed By: #### L 100.0100, L500.4050 ####[facility] [address] [place], [address] GFR/1.73 sq M.predicted among non-blacks MDRD (S/P/Bld) [Vol rate/Area] 15 mL/min/{1.73_m2} Low >60 [facility] Comment on above: Result Comment: mL/m in/1.73m2 CKD-EPI Creatinine Equation (2020) Performed By: #### L 100.0100, L500.4050 ####[facility] [address] [place], [address] Globulin (S) [Mass/Vol] 2.7 g/dL Normal 2.2-4.2 [facility] Comment on above: Performed By: #### L 100.0100, L500.4050 ####[facility] [address] [place], [address] Glucose [Mass/Vol] 97 mg/dL Normal 70-99 [facility] Comment on above: Performed By: #### L 100.0100, L500.4050 ####[facility] [address] [place], [address] Potassium [Moles/Vol] 4.4 mmol/L Normal 3.3-5.1 [facility] Comment on above: Performed By: #### L 100.0100, L500.4050 ####[facility] [address] [place], [address] Sodium [Moles/Vol] 146 mmol/L High 133-145 [facility] Comment on above: Performed By: #### L 100.0100, L500.4050 ####[facility] [address] [place], [address] T PROT 5.8 g/dL Low 5.9-8.4 [facility] Comment on above: Performed By: #### L 100.0100, L500.4050 ####[facility] [address] [place], [address] Urea nitrogen [Mass/Vol] 72 mg/dL High 4-19 [facility] Comment on above: Performed By: #### L 100.0100, L500.4050 ####[facility] [address] [place], [address] Emergency Department Summary on 10-12-2024 Emergency Department Summary Normal [facility] Eosinophil percentageOrdered By: Alexis Friend on 10-12-2024 Eosinophils/100 WBC (Bld) 5.2 % High 0-5 [facility] Eosinophil percentageOrdered By: Gautam Antony on 10-12-2024 Eosinophils/100 WBC (Bld) 7.7 % High 0-5 [facility] Erythrocyte distribution wid th ratioOrdered By: Alexis Friend on 10-12-2024 Erythrocyte distribution width (RBC) [Ratio] 14.3 % 11.6-14.6 [facility] Erythrocyte distribution wid th ratioOrdered By: Gautam Antony on 10-12-2024 Erythrocyte distribution width (RBC) [Ratio] 14.2 % 11.6-14.6 [facility] Erythrocyte distribution wid th standard deviationOrdered By: Alexis Friend on 10-12-2024 Erythrocyte distribution width (RBC) [Ratio] 57.7 fl High 35.1-43.9 [facility] Erythrocyte distribution wid th standard deviationOrdered By: Gautam Antony on 10-12-2024 Erythrocyte distribution width (RBC) [Ratio] 56.0 fl High 35.1-43.9 [facility] Glomerular filtration rate ( GFR) estimation/1.73 sq m using serum, plasma, or whole bOrdered By: Alexis Friend on 10-12-2024 GFR/1.73 sq M.predicted among non-blacks MDRD (S/P/Bld) [Vol rate/Area] 15 mL/min/{1.73_m2} Low >60 [facility] Glomerular filtration rate ( GFR) estimation/1.73 sq m using serum, plasma, or whole bOrdered By: Gautam Antony on 10-12-2024 GFR/1.73 sq M.predicted among non-blacks MDRD (S/P/Bld) [Vol rate/Area] 16 mL/min/{1.73_m2} Low >60 [facility] Hematocrit Auto (Bld) [Volum e fraction]Ordered By: Alexis Friend on 10-12-2024 Hematocrit (Bld) [Volume fraction] 31.0 % Low 37-47 [facility] Hematocrit Auto (Bld) [Volum e fraction]Ordered By: Gautam Hardy on 10-12-2024 Hematocrit (Bld) [Volume fraction] 26.9 % Low 37-47 [facility] Hemoglobin measurementOrdere d By: Alexis Freind on 10-12-2024 Hemoglobin (Bld) [Mass/Vol] 9.1 g/dL Low 12.0-15.0 [facility] Hemoglobin measurementOrdere d By: Gautam Hardy on 10-12-2024 Hemoglobin (Bld) [Mass/Vol] 7.9 g/dL Low 12.0-15.0 [facility] Immature granulocytes/100 WB C Auto (Bld)Ordered By: Alexis Friend on 10-12-2024 Immature granulocytes/100 WBC (Bld) 0.800 % 0.0-0.9 [facility] Immature granulocytes/100 WB C Auto (Bld)Ordered By: Gautam Hardy on 10-12-2024 Immature granulocytes/100 WBC (Bld) 0.200 % 0.0-0.9 [facility] MCV (mean corpuscular volume ) determinationOrdered By: Alexis Friend on 10-12-2024 MCV (RBC) [Entitic vol] 108.8 fL High 81-99 [facility] MCV (mean corpuscular volume ) determinationOrdered By: Gautam Hardy on 10-12-2024 MCV (RBC) [Entitic vol] 108.9 fL High 81-99 [facility] Mean corpuscular hemoglobin (MCH) determinationOrdered By: Alexis Friend on 10-12-2024 MCH (RBC) [Entitic mass] 31.9 pg 27.0-32.0 [facility] Mean corpuscular hemoglobin (MCH) determinationOrdered By: Gautam Hardy on 10-12-2024 MCH (RBC) [Entitic mass] 32.0 pg 27.0-32.0 [facility] Monocyte percentageOrdered B y: Alexis Friend on 10-12-2024 Monocytes/100 WBC (Bld) 5.3 % 0-10 [facility] Monocyte percentageOrdered B y: Gautam Wallok on 10-12-2024 Monocytes/100 WBC (Bld) 7.7 % 0-10 [facility] Neutrophil percentageOrdered By: Alexis Friend on 10-12-2024 Neutrophils/100 WBC (Bld) 69.2 % 47-70 [facility] Neutrophil percentageOrdered By: Gautam Antony on 10-12-2024 Neutrophils/100 WBC (Bld) 45.6 % Low 47-70 [facility] No Panel InformationOrdered By: Alexis Friend on 10-12-2024 66 U/L High <32 [facility] Platelet countOrdered By: Simi neptali Kingo on 10-12-2024 Platelets (Bld) [#/Vol] 183 10*3/uL 150-450 [facility] Platelet countOrdered By: Fernando Hardy on 10-12-2024 Platelets (Bld) [#/Vol] 153 10*3/uL 150-450 [facility] Potassium measurement (mass/ volume)Ordered By: Alexis Friend on 10-12-2024 Potassium (Unsp spec) [Mass/Vol] 4.4 mmol/L 3.3-5.1 [facility] Potassium measurement (mass/ volume)Ordered By: Gautam Hardy on 10-12-2024 Potassium (Unsp spec) [Mass/Vol] 4.3 mmol/L 3.3-5.1 [facility] RBC Auto (Bld) [#/Vol]Ordere d By: Alexis Friend on 10-12-2024 RBC (Bld) [#/Vol] 2.85 10*6/uL Low 4.2-5.4 [facility] RBC Auto (Bld) [#/Vol]Ordere d By: Gautam Hardy on 10-12-2024 RBC (Bld) [#/Vol] 2.47 10*6/uL Low 4.2-5.4 [facility] Serum creatinine measurement (mass/volume)Ordered By: Alexis Friend on 10-12-2024 Creatinine [Mass/Vol] 3.01 mg/dL High 0.70-1.20 [facility] Serum creatinine measurement (mass/volume)Ordered By: Gautam Hardy on 10-12-2024 Creatinine [Mass/Vol] 2.88 mg/dL High 0.70-1.20 [facility] Serum globulin measurementOr dered By: Alexis Friend on 10-12-2024 Globulin (S) [Mass/Vol] 2.7 g/dL 2.2-4.2 [facility] Serum glucose measurement (m ass/volume)Ordered By: Alexis Friend on 10-12-2024 Glucose [Mass/Vol] 97 mg/dL 70-99 [facility] Serum glucose measurement (m ass/volume)Ordered By: Gautam Hardy on 10-12-2024 Glucose [Mass/Vol] 84 mg/dL 70-99 [facility] Serum or plasma alanine huertas otransferase (ALT) measurementOrdered By: Alexis Friend on 10-12-2024 ALT [Catalytic activity/Vol] 100 U/L High <35 [facility] Serum or plasma albumin farheen urement (mass/volume)Ordered By: Alexis Friend on 10-12-2024 Albumin [Mass/Vol] 3.1 g/dL Low 3.4-4.8 [facility] Serum or plasma albumin/glob ulin mass ratioOrdered By: Alexis Friend on 10-12-2024 Albumin/Globulin [Mass ratio] 1.1 {ratio} 0.9-2.4 [facility] Serum or plasma alkaline mariya sphatase measurementOrdered By: Alexis Friend on 10-12-2024 ALP [Catalytic activity/Vol] 134 U/L High 35-104 [facility] Serum or plasma calcium farheen urement (mass/volume)Ordered By: Alexis Friend on 10-12-2024 Calcium [Mass/Vol] 8.3 mg/dL 7.6-11.0 [facility] Serum or plasma calcium farheen urement (mass/volume)Ordered By: Gautam Hardy on 10-12-2024 Calcium [Mass/Vol] 8.0 mg/dL 7.6-11.0 [facility] Serum or plasma urea nitroge n measurement (mass/volume)Ordered By: Alexis Friend on 10-12-2024 Urea nitrogen [Mass/Vol] 72 mg/dL High 4-19 [facility] Serum or plasma urea nitroge n measurement (mass/volume)Ordered By: Gautam Hardy on 10-12-2024 Urea nitrogen [Mass/Vol] 74 mg/dL High 07-23 [facility] Sodium levelOrdered By: Alexis Friend on 10-12-2024 Sodium [Moles/Vol] 146 mmol/L High 133-145 [facility] Sodium levelOrdered By: Gautam Hardy on 10-12-2024 Sodium [Moles/Vol] 144 mmol/L 133-145 [facility] Total proteinOrdered By: Alexis Friend on 10-12-2024 Protein [Mass/Vol] 5.8 g/dL Low 5.9-8.4 [facility] White blood cell (WBC) count Ordered By: Alexis Friend on 10-12-2024 WBC (Bld) [#/Vol] 6.6 10*3/uL 4.4-11.0 [facility] White blood cell (WBC) count Ordered By: Gautam Hardy on 10-12-2024 WBC (Bld) [#/Vol] 4.3 10*3/uL Low 4.4-11.0 [facility] Basic Metabolic Profile (BMP )on 10-11-2024 BUN/CRE 26.7 RATIO High 10-20 [facility] Comment on above: Performed By: #### L 500.2500 ####[facility] [address] [place], [address] Calcium [Mass/Vol] 7.9 mg/dL Normal 7.6-11.0 [facility] Comment on above: Performed By: #### L 500.2500 ####[facility] [address] [place], [address] Chloride [Moles/Vol] 111 mmol/L High 98-108 [facility] Comment on above: Performed By: #### L 500.2500 ####[facility] [address] [place], [address] CO2 [Moles/Vol] 22.3 mmol/L Normal 21.0-32.0 [facility] Comment on above: Performed By: #### L 500.2500 ####[facility] [address] [place], [address] Creatinine [Mass/Vol] 2.82 mg/dL High 0.70-1.20 [facility] Comment on above: Performed By: #### L 500.2500 ####[facility] [address] [place], [address] ECRCL 18.70 ml/min Low 50-250 [facility] Comment on above: Performed By: #### L 500.2500 ####[facility] [address] [place], [address] GAP 11 Normal 5-15 [facility] Comment on above: Performed By: #### L 500.2500 ####[facility] [address] [place], [address] GFR/1.73 sq M.predicted among non-blacks MDRD (S/P/Bld) [Vol rate/Area] 16 mL/min/{1.73_m2} Low >60 [facility] Comment on above: Result Comment: mL/m in/1.73m2 CKD-EPI Creatinine Equation (2020) Performed By: #### L 500.2500 ####[facility] [address] [place], [address] Glucose [Mass/Vol] 100 mg/dL High 70-99 [facility] Comment on above: Performed By: #### L 500.2500 ####[facility] [address] [place], [address] Potassium [Moles/Vol] 4.1 mmol/L Normal 3.3-5.1 [facility] Comment on above: Performed By: #### L 500.2500 ####[facility] [address] [place], [address] Sodium [Moles/Vol] 145 mmol/L Normal 133-145 [facility] Comment on above: Performed By: #### L 500.2500 ####[facility] [address] [place], [address] Urea nitrogen [Mass/Vol] 75 mg/dL High 4-19 [facility] Comment on above: Performed By: #### L 500.2500 ####[facility] [address] [place], [place], [address] Venous Duplex US, Unilateral on 10-11-2024 Venous Duplex US, Unilateral Normal [facility] Venous duplex ultrasound rep ortOrdered By: Russell Gonzalez on 10-11-2024 US Vein [facility] Work Phone: Urine Cultureon 10-09-2024 URC Normal [facility] Comment on above: Performed By: #### M 100.2200 ####[facility] [address] [place], [address] Basic Metabolic Profile (BMP )on 10-08-2024 BUN/CRE 27.1 RATIO High 10-20 [facility] Comment on above: Performed By: #### L 500.2500 ####[facility] [address] [place], [address] Calcium [Mass/Vol] 7.9 mg/dL Normal 7.6-11.0 [facility] Comment on above: Performed By: #### L 500.2500 ####[facility] [address] [place], [address] Chloride [Moles/Vol] 107 mmol/L Normal 98-108 [facility] Comment on above: Performed By: #### L 500.2500 ####[facility] [address] [place], [address] CO2 [Moles/Vol] 23.5 mmol/L Normal 21.0-32.0 [facility] Comment on above: Performed By: #### L 500.2500 ####[facility] [address] [place], [address] Creatinine [Mass/Vol] 2.76 mg/dL High 0.70-1.20 [facility] Comment on above: Performed By: #### L 500.2500 ####[facility] [address] [place], [address] ECRCL 19.10 ml/min Low 50-250 [facility] Comment on above: Performed By: #### L 500.2500 ####[facility] [address] [place], [address] GAP 11 Normal 5-15 [facility] Comment on above: Performed By: #### L 500.2500 ####[facility] [address] [place], [address] GFR/1.73 sq M.predicted among non-blacks MDRD (S/P/Bld) [Vol rate/Area] 17 mL/min/{1.73_m2} Low >60 [facility] Comment on above: Result Comment: mL/m in/1.73m2 CKD-EPI Creatinine Equation (2020) Performed By: #### L 500.2500 ####[facility] [address] [place], [address] Glucose [Mass/Vol] 85 mg/dL Normal 70-99 [facility] Comment on above: Performed By: #### L 500.2500 ####[facility] [address] [place], [address] Potassium [Moles/Vol] 5.0 mmol/L Normal 3.3-5.1 [facility] Comment on above: Result Comment: Hemo lysis present, Results??could be affected.?? Performed By: #### L 500.2500 ####[facility] [address] [place], [address] Sodium [Moles/Vol] 142 mmol/L Normal 133-145 [facility] Comment on above: Performed By: #### L 500.2500 ####[facility] [address] [place], [address] Urea nitrogen [Mass/Vol] 75 mg/dL High 4-19 [facility] Comment on above: Performed By: #### L 500.2500 ####[facility] [address] [place], [address] Urinalysis, Completeon 10-07 BACTERIA 1+ /hpf Normal None Seen [facility] Comment on above: Order Comment: BLADD ER TAP Performed By: #### L 400.0001 ####[facility] [address] [place], [address] RBC 0-5 SEEN Normal 0-5 [facility] Comment on above: Order Comment: BLADD ER TAP Performed By: #### L 400.0001 ####[facility] [address] [place], [address] EPI,SQUAMOUS 0-5 SEEN Normal 5-10 [facility] Comment on above: Order Comment: BLADD ER TAP Performed By: #### L 400.0001 ####[facility] [address] [place], [address] WBC 10-25 SEEN Normal 0-5 [facility] Comment on above: Order Comment: BLADD ER TAP Performed By: #### L 400.0001 ####[facility] [address] [place], [address] Bilirubin Test strip Ql (U)O rdered By: Gautam Hardy on 10-06-2024 Bilirubin Ql (U) Negative Negative [facility] Ketones Test strip Ql (U)Ord ered By: Gautam Hardy on 10-06-2024 Ketones Ql (U) Negative Negative [facility] Mucus LM Ql (Urine sed)Order ed By: Gautam Hardy on 10-06-2024 Mucus Ql (Urine sed) 0 SEEN /hpf [facility] Nitrite Test strip Ql (U)Ord ered By: Gautam Hardy on 10-06-2024 Nitrite Ql (U) Negative Negative [facility] Protein Test strip Ql (U)Ord ered By: Gautam Hardy on 10-06-2024 Protein Ql (U) 30 mg/dl High Negative [facility] Squamous epithelial cells de tection in urine sediment by light microscopyOrdered By: Gautam Hardy on 10-06-2024 Epithelial cells.squamous LM Ql (Urine sed) 0-5 SEEN /hpf 5-10 [facility] Urinalysis, Completeon 10-06 Mucus Ql (Urine sed) 0 SEEN Normal [facility] Comment on above: Order Comment: BLADD ER TAP Performed By: #### L 400.0001 ####[facility] [address] [place], [address] Urine clarityOrdered By: Gautam Hardy on 10-06-2024 Clarity (U) Clear Clear [facility] Urine color determinationOrd ered By: Gautam Hardy on 10-06-2024 Color (U) Yellow Yellow [facility] Urine cultureOrdered By: Gautam Hardy on 10-06-2024 Bacteria identified Cx Nom (U) Vancomycin Resist. E. faecalis Abnormal [facility] Urine glucose detectionOrder ed By: Gautam Hardy on 10-06-2024 Glucose Ql (U) Normal mg/dl Normal [facility] Urine leukocyte esterase det ection by dipstickOrdered By: Gautam Hardy on 10-06-2024 Leukocyte esterase Test strip Ql (U) 25 /ul High Negative [facility] Urine pHOrdered By: Gautam Hardy on 10-06-2024 pH (U) 6.0 [pH] 5.0 - 8.0 [facility] Urine sediment bacteria coun t by microscopy (number/high power field)Ordered By: Gautam Hardy on 10-06-2024 Bacteria LM.HPF (Urine sed) [#/Area] 1 /[HPF] None Seen [facility] Urine specific gravity measu rementOrdered By: Gautam Hardy on 10-06-2024 Specific gravity (U) [Rel density] 1.015 1.002-1.03 0 [facility] Urine urobilinogen measureme ntOrdered By: Gautam Hardy on 10-06-2024 Urobilinogen Ql (U) Normal mg/dl Normal [facility] White blood cell countOrdere d By: Gautam Hardy on 10-06-2024 White blood cell count 10-25 SEEN /hpf 0-5 [facility] Basic Metabolic Profile (BMP )on 10-05-2024 BUN/CRE 25.7 RATIO High 10-20 [facility] Comment on above: Performed By: #### L 500.2500, L100.0100 ####[facility] [address] [place], [address] Calcium [Mass/Vol] 8.1 mg/dL Normal 7.6-11.0 [facility] Comment on above: Performed By: #### L 500.2500, L100.0100 ####[facility] [address] [place], [address] Chloride [Moles/Vol] 105 mmol/L Normal 98-108 [facility] Comment on above: Performed By: #### L 500.2500, L100.0100 ####[facility] [address] [place], [address] CO2 [Moles/Vol] 25.1 mmol/L Normal 21.0-32.0 [facility] Comment on above: Performed By: #### L 500.2500, L100.0100 ####[facility] [address] [place], [address] Creatinine [Mass/Vol] 2.96 mg/dL High 0.70-1.20 [facility] Comment on above: Performed By: #### L 500.2500, L100.0100 ####[facility] [address] [place], [address] ECRCL 17.81 ml/min Low 50-250 [facility] Comment on above: Performed By: #### L 500.2500, L100.0100 ####[facility] [address] [place], [address] GAP 11 Normal 5-15 [facility] Comment on above: Performed By: #### L 500.2500, L100.0100 ####[facility] [address] [place], [address] GFR/1.73 sq M.predicted among non-blacks MDRD (S/P/Bld) [Vol rate/Area] 15 mL/min/{1.73_m2} Low >60 [facility] Comment on above: Result Comment: mL/m in/1.73m2 CKD-EPI Creatinine Equation (2020) Performed By: #### L 500.2500, L100.0100 ####[facility] [address] [place], [address] Glucose [Mass/Vol] 89 mg/dL Normal 70-99 [facility] Comment on above: Performed By: #### L 500.2500, L100.0100 ####[facility] [address] [place], [address] Potassium [Moles/Vol] 4.7 mmol/L Normal 3.3-5.1 [facility] Comment on above: Performed By: #### L 500.2500, L100.0100 ####[facility] [address] [place], [address] Sodium [Moles/Vol] 141 mmol/L Normal 133-145 [facility] Comment on above: Performed By: #### L 500.2500, L100.0100 ####[facility] [address] [place], [address] Urea nitrogen [Mass/Vol] 76 mg/dL High 4-19 [facility] Comment on above: Performed By: #### L 500.2500, L100.0100 ####[facility] [address] [place], [address] CBC W/Diff, Automatedon 07-0 Absolute Lymph 1.82 X10 3/uL Normal 0.83-4.51 [facility] Comment on above: Performed By: #### L 500.2500, L100.0100 ####[facility] [address] [place], [address] Absolute Neut 4.2 X10 3/uL Normal 2.0-7.7 [facility] Comment on above: Performed By: #### L 500.2500, L100.0100 ####[facility] [address] [place], [address] Basophils/100 WBC (Bld) 0.6 % Normal 0-1 [facility] Comment on above: Performed By: #### L 500.2500, L100.0100 ####[facility] [address] [place], [address] Eosinophils/100 WBC (Bld) 5.0 % Normal 0-5 [facility] Comment on above: Performed By: #### L 500.2500, L100.0100 ####[facility] [address] [place], [address] Erythrocyte distribution width (RBC) [Ratio] 14.7 % High 11.6-14.6 [facility] Comment on above: Performed By: #### L 500.2500, L100.0100 ####[facility] [address] [place], [address] Hematocrit (Bld) [Volume fraction] 28.9 % Low 37-47 [facility] Comment on above: Performed By: #### L 500.2500, L100.0100 ####[facility] [address] [place], [address] Hemoglobin (Bld) [Mass/Vol] 8.9 g/dL Low 12.0-15.0 [facility] Comment on above: Performed By: #### L 500.2500, L100.0100 ####[facility] [address] [place], [address] IG% 0.400 Normal 0.0-0.9 [facility] Comment on above: Result Comment: IG% - Immature Granulocytes (promyelocytes, myelocytes andmetamyelocytes) > 1% indicates that a LEFT SHIFT is Present. Performed By: #### L 500.2500, L100.0100 ####[facility] [address] [place], [address] Lymphocytes/100 WBC (Bld) 25.9 % Normal 19-41 [facility] Comment on above: Performed By: #### L 500.2500, L100.0100 ####[facility] [address] [place], [address] MCH (RBC) [Entitic mass] 32.1 pg High 27.0-32.0 [facility] Comment on above: Performed By: #### L 500.2500, L100.0100 ####[facility] [address] [place], [address] MCHC (RBC) [Mass/Vol] 30.8 g/dL Low 32-36 [facility] Comment on above: Performed By: #### L 500.2500, L100.0100 ####[facility] [address] [place], [address] MCV (RBC) [Entitic vol] 104.3 fL High 81-99 [facility] Comment on above: Performed By: #### L 500.2500, L100.0100 ####[facility] [address] [place], [address] Monocytes/100 WBC (Bld) 7.7 % Normal 0-10 [facility] Comment on above: Performed By: #### L 500.2500, L100.0100 ####[facility] [address] [place], [address] Neutrophils/100 WBC (Bld) 60.4 % Normal 47-70 [facility] Comment on above: Performed By: #### L 500.2500, L100.0100 ####[facility] [address] [place], [address] Nucleated RBC (Bld) [#/Vol] 0 10*3/uL Normal 0-5 [facility] Comment on above: Performed By: #### L 500.2500, L100.0100 ####[facility] [address] [place], [address] Platelet mean volume (Bld) [Entitic vol] 13.3 fL High 6.2-12.0 [facility] Comment on above: Performed By: #### L 500.2500, L100.0100 ####[facility] [address] [place], [address] Platelets (Bld) [#/Vol] 179 10*3/uL Normal 150-450 [facility] Comment on above: Performed By: #### L 500.2500, L100.0100 ####[facility] [address] [place], [address] RBC (Bld) [#/Vol] 2.77 10*6/uL Low 4.2-5.4 [facility] Comment on above: Performed By: #### L 500.2500, L100.0100 ####[facility] [address] [place], [address] RDW SD 56.3 fl High 35.1-43.9 [facility] Comment on above: Performed By: #### L 500.2500, L100.0100 ####[facility] [address] [place], [address] WBC (Bld) [#/Vol] 7.0 10*3/uL Normal 4.4-11.0 [facility] Comment on above: Performed By: #### L 500.2500, L100.0100 ####[facility] [address] [place], [address] Anion gap in Serum or Plasma Ordered By: Alex Acosta on 10-04-2024 Anion gap [Moles/Vol] 12 mmol/L 5-15 [facility] BUN/creatinine ratioOrdered By: Alex Acosta on 10-04-2024 Urea nitrogen/Creatinine [Mass ratio] 26.4 mg/mg High 10-20 [facility] Basic Metabolic Profile (BMP )on 10-04-2024 BUN/CRE 26.4 RATIO High - [facility] Comment on above: Performed By: #### L 500.2500 ####[facility] [address] [place], [address] ECRCL 18.83 ml/min Low 50-250 [facility] Comment on above: Performed By: #### L 500.2500 ####[facility] [address] [place], [address] GAP 12 Normal - [facility] Comment on above: Performed By: #### L 500.2500 ####[facility] [address] [place], [address] Potassium [Moles/Vol] 4.5 mmol/L Normal 3.3-5.1 [facility] Comment on above: Performed By: #### L 500.2500 ####[facility] [address] [place], [address] Carbon dioxide, total [Moles /volume] in Central venous bloodOrdered By: Alex Acosta on 10-04-2024 CO2 [Moles/Vol] 23.9 mmol/L Normal 21.0-32.0 [facility] Comment on above: Performed By: #### L 500.2500 ####[facility] [address] [place], [address] Chloride assayOrdered By: Gumaro Acosta on 10-04-2024 Chloride [Moles/Vol] 103 mmol/L Normal 98-108 [facility] Comment on above: Performed By: #### L 500.2500 ####[facility] [address] [place], [place], [id number] Glomerular filtration rate ( GFR) estimation/1.73 sq m using serum, plasma, or whole bOrdered By: Alex Acosta on 10-04-2024 GFR/1.73 sq M.predicted among non-blacks MDRD (S/P/Bld) [Vol rate/Area] 16 mL/min/{1.73_m2} Low >60 [facility] Comment on above: Result Comment: mL/m in/1.73m2 CKD-EPI Creatinine Equation (2020) Performed By: #### L 500.2500 ####[facility] [address] [place], [address] Potassium measurement (mass/ volume)Ordered By: Alex Acosta on 10-04-2024 Potassium (Unsp spec) [Mass/Vol] 4.5 mmol/L 3.3-5.1 [facility] Serum creatinine measurement (mass/volume)Ordered By: Alex Acosta on 10-04-2024 Creatinine [Mass/Vol] 2.85 mg/dL High 0.70-1.20 [facility] Comment on above: Performed By: #### L 500.2500 ####[facility] [address] [place], [place], [address] Serum glucose measurement (m ass/volume)Ordered By: Alex Acosta on 10-04-2024 Glucose [Mass/Vol] 86 mg/dL Normal 70-99 [facility] Comment on above: Performed By: #### L 500.2500 ####[facility] [address] [place], [address] Serum or plasma calcium farheen urement (mass/volume)Ordered By: Alex Acosat on 10-04-2024 Calcium [Mass/Vol] 7.8 mg/dL Normal 7.6-11.0 [facility] Comment on above: Performed By: #### L 500.2500 ####[facility] [address] [place], [place], [address] Serum or plasma urea nitroge n measurement (mass/volume)Ordered By: Alex Acosta on 10-04-2024 Urea nitrogen [Mass/Vol] 75 mg/dL High 4-19 [facility] Comment on above: Performed By: #### L 500.2500 ####[facility] [address] [place], [address] Sodium levelOrdered By: Mari Acosta on 10-04-2024 Sodium [Moles/Vol] 139 mmol/L Normal 133-145 [facility] Comment on above: Performed By: #### L 500.2500 ####[facility] [address] [place], [place], [address] Absolute lymphocyte countOrd ered By: Alex Acosta on 10-03-2024 Lymphocytes Auto (Unsp spec) [#/Vol] 2.13 10*3/uL 0.83-4.51 [facility] Anion gap in Serum or Plasma Ordered By: Alex Acosta on 10-03-2024 Anion gap [Moles/Vol] 11 mmol/L 5-15 [facility] Automated lymphocyte count a s percentage of total leukocytesOrdered By: Alex Acosta on 10-03-2024 Lymphocytes/100 WBC Auto (Unsp spec) 32.3 % 19-41 [facility] BUN/creatinine ratioOrdered By: Alex Acosta on 10-03-2024 Urea nitrogen/Creatinine [Mass ratio] 27.3 mg/mg High 01-23 [facility] Basic Metabolic Profile (BMP )on 10-03-2024 BUN/CRE 27.3 RATIO High 01-23 [facility] Comment on above: Performed By: #### L 100.0100, L500.2500 ####[facility] [address] [place], [place], [address] Calcium [Mass/Vol] 7.6 mg/dL Normal 7.6-11.0 [facility] Comment on above: Performed By: #### L 100.0100, L500.2500 ####[facility] [address] [place], [address] Chloride [Moles/Vol] 104 mmol/L Normal 98-108 [facility] Comment on above: Performed By: #### L 100.0100, L500.2500 ####[facility] [address] [place], [address] CO2 [Moles/Vol] 24.9 mmol/L Normal 21.0-32.0 [facility] Comment on above: Performed By: #### L 100.0100, L500.2500 ####[facility] [address] [place], [address] Creatinine [Mass/Vol] 2.84 mg/dL High 0.70-1.20 [facility] Comment on above: Performed By: #### L 100.0100, L500.2500 ####[facility] [address] [place], [address] ECRCL 18.66 ml/min Low 50-250 [facility] Comment on above: Performed By: #### L 100.0100, L500.2500 ####[facility] [address] [place], [address] GAP 11 Normal 5-15 [facility] Comment on above: Performed By: #### L 100.0100, L500.2500 ####[facility] [address] [place], [address] GFR/1.73 sq M.predicted among non-blacks MDRD (S/P/Bld) [Vol rate/Area] 16 mL/min/{1.73_m2} Low >60 [facility] Comment on above: Result Comment: mL/m in/1.73m2 CKD-EPI Creatinine Equation (2020) Performed By: #### L 100.0100, L500.2500 ####[facility] [address] [place], [address] Glucose [Mass/Vol] 102 mg/dL High 70-99 [facility] Comment on above: Performed By: #### L 100.0100, L500.2500 ####[facility] [address] [place], [address] Potassium [Moles/Vol] 4.3 mmol/L Normal 3.3-5.1 [facility] Comment on above: Performed By: #### L 100.0100, L500.2500 ####[facility] [address] [place], [address] Sodium [Moles/Vol] 140 mmol/L Normal 133-145 [facility] Comment on above: Performed By: #### L 100.0100, L500.2500 ####[facility] [address] [place], [address] Urea nitrogen [Mass/Vol] 78 mg/dL High 4-19 [facility] Comment on above: Performed By: #### L 100.0100, L500.2500 ####[facility] [address] [place], [address] Basophil percentageOrdered B y: Alex Acosta on 10-03-2024 Basophils/100 WBC (Bld) 0.6 % 0-1 [facility] CBC W/Diff, Automatedon --2024 Absolute Lymph 2.13 X10 3/uL Normal 0.83-4.51 [facility] Comment on above: Performed By: #### L 100.0100, L500.2500 ####[facility] [address] [place], [address] Absolute Neut 3.4 X10 3/uL Normal 2.0-7.7 [facility] Comment on above: Performed By: #### L 100.0100, L500.2500 ####[facility] [address] [place], [address] Basophils/100 WBC (Bld) 0.6 % Normal 0-1 [facility] Comment on above: Performed By: #### L 100.0100, L500.2500 ####[facility] [address] [place], [address] Eosinophils/100 WBC (Bld) 6.2 % High 0-5 [facility] Comment on above: Performed By: #### L 100.0100, L500.2500 ####[facility] [address] [place], [address] Erythrocyte distribution width (RBC) [Ratio] 15.1 % High 11.6-14.6 [facility] Comment on above: Performed By: #### L 100.0100, L500.2500 ####[facility] [address] [place], [address] Hematocrit (Bld) [Volume fraction] 28.5 % Low 37-47 [facility] Comment on above: Performed By: #### L 100.0100, L500.2500 ####[facility] [address] [place], [address] Hemoglobin (Bld) [Mass/Vol] 9.0 g/dL Low 12.0-15.0 [facility] Comment on above: Performed By: #### L 100.0100, L500.2500 ####[facility] [address] [place], [address] IG% 0.300 Normal 0.0-0.9 [facility] Comment on above: Result Comment: IG% - Immature Granulocytes (promyelocytes, myelocytes andmetamyelocytes) > 1% indicates that a LEFT SHIFT is Present. Performed By: #### L 100.0100, L500.2500 ####[facility] [address] [place], [address] Lymphocytes/100 WBC (Bld) 32.3 % Normal 19-41 [facility] Comment on above: Performed By: #### L 100.0100, L500.2500 ####[facility] [address] [place], [address] MCH (RBC) [Entitic mass] 32.5 pg High 27.0-32.0 [facility] Comment on above: Performed By: #### L 100.0100, L500.2500 ####[facility] [address] [place], [address] MCHC (RBC) [Mass/Vol] 31.6 g/dL Low 32-36 [facility] Comment on above: Performed By: #### L 100.0100, L500.2500 ####[facility] [address] [place], [address] MCV (RBC) [Entitic vol] 102.9 fL High 81-99 [facility] Comment on above: Performed By: #### L 100.0100, L500.2500 ####[facility] [address] [place], [address] Monocytes/100 WBC (Bld) 8.8 % Normal 0-10 [facility] Comment on above: Performed By: #### L 100.0100, L500.2500 ####[facility] [address] [place], [address] Neutrophils/100 WBC (Bld) 51.8 % Normal 47-70 [facility] Comment on above: Performed By: #### L 100.0100, L500.2500 ####[facility] [address] [place], [address] Nucleated RBC (Bld) [#/Vol] 0 10*3/uL Normal 0-5 [facility] Comment on above: Performed By: #### L 100.0100, L500.2500 ####[facility] [address] [place], [address] Platelet mean volume (Bld) [Entitic vol] 13.8 fL High 6.2-12.0 [facility] Comment on above: Performed By: #### L 100.0100, L500.2500 ####[facility] [address] [place], [address] Platelets (Bld) [#/Vol] 195 10*3/uL Normal 150-450 [facility] Comment on above: Performed By: #### L 100.0100, L500.2500 ####[facility] [address] [place], [address] RBC (Bld) [#/Vol] 2.77 10*6/uL Low 4.2-5.4 [facility] Comment on above: Performed By: #### L 100.0100, L500.2500 ####[facility] [address] [place], [address] RDW SD 56.8 fl High 35.1-43.9 [facility] Comment on above: Performed By: #### L 100.0100, L500.2500 ####[facility] [address] [place], [address] WBC (Bld) [#/Vol] 6.6 10*3/uL Normal 4.4-11.0 [facility] Comment on above: Performed By: #### L 100.0100, L500.2500 ####[facility] [address] [place], [address] Carbon dioxide, total [Moles /volume] in Central venous bloodOrdered By: Alex Acosta on 10-03-2024 CO2 [Moles/Vol] 24.9 mmol/L 21.0-32.0 [facility] Chloride assayOrdered By: Gumaro Acosta on 10-03-2024 Chloride [Moles/Vol] 104 mmol/L 98-108 [facility] Eosinophil percentageOrdered By: Alex Acosta on 10-03-2024 Eosinophils/100 WBC (Bld) 6.2 % High 0-5 [facility] Erythrocyte distribution wid th ratioOrdered By: Alex Acosta on 10-03-2024 Erythrocyte distribution width (RBC) [Ratio] 15.1 % High 11.6-14.6 [facility] Erythrocyte distribution wid th standard deviationOrdered By: Alex Acosta on 10-03-2024 Erythrocyte distribution width (RBC) [Ratio] 56.8 fl High 35.1-43.9 [facility] Glomerular filtration rate ( GFR) estimation/1.73 sq m using serum, plasma, or whole bOrdered By: Alex Acosta on 10-03-2024 GFR/1.73 sq M.predicted among non-blacks MDRD (S/P/Bld) [Vol rate/Area] 16 mL/min/{1.73_m2} Low >60 [facility] Hematocrit Auto (Bld) [Volum e fraction]Ordered By: Alex Acosta on 10-03-2024 Hematocrit (Bld) [Volume fraction] 28.5 % Low 37-47 [facility] Hemoglobin measurementOrdere d By: Alex Acosta on 10-03-2024 Hemoglobin (Bld) [Mass/Vol] 9.0 g/dL Low 12.0-15.0 [facility] Immature granulocytes/100 WB C Auto (Bld)Ordered By: Alex Acosta on 10-03-2024 Immature granulocytes/100 WBC (Bld) 0.300 % 0.0-0.9 [facility] MCV (mean corpuscular volume ) determinationOrdered By: Alex Acosta on 10-03-2024 MCV (RBC) [Entitic vol] 102.9 fL High 81-99 [facility] Mean corpuscular hemoglobin (MCH) determinationOrdered By: Alex Acosta on 10-03-2024 MCH (RBC) [Entitic mass] 32.5 pg High 27.0-32.0 [facility] Monocyte percentageOrdered B y: Alex Acosta on 10-03-2024 Monocytes/100 WBC (Bld) 8.8 % 0-10 [facility] Neutrophil percentageOrdered By: Alex Acosta on 10-03-2024 Neutrophils/100 WBC (Bld) 51.8 % 47-70 [facility] Platelet countOrdered By: Gumaro Acosta on 10-03-2024 Platelets (Bld) [#/Vol] 195 10*3/uL 150-450 [facility] Potassium measurement (mass/ volume)Ordered By: Alex Acosta on 10-03-2024 Potassium (Unsp spec) [Mass/Vol] 4.3 mmol/L 3.3-5.1 [facility] RBC Auto (Bld) [#/Vol]Ordere d By: Alex Acosta on 10-03-2024 RBC (Bld) [#/Vol] 2.77 10*6/uL Low 4.2-5.4 [facility] Serum creatinine measurement (mass/volume)Ordered By: Alex Acosta on 10-03-2024 Creatinine [Mass/Vol] 2.84 mg/dL High 0.70-1.20 [facility] Serum glucose measurement (m ass/volume)Ordered By: Alex Acosta on 10-03-2024 Glucose [Mass/Vol] 102 mg/dL High 70-99 [facility] Serum or plasma calcium farheen urement (mass/volume)Ordered By: Alex Acosta on 10-03-2024 Calcium [Mass/Vol] 7.6 mg/dL 7.6-11.0 [facility] Serum or plasma urea nitroge n measurement (mass/volume)Ordered By: Alex Acosta on 10-03-2024 Urea nitrogen [Mass/Vol] 78 mg/dL High 4-19 [facility] Sodium levelOrdered By: Mari Acosta on 10-03-2024 Sodium [Moles/Vol] 140 mmol/L 133-145 [facility] Urine Cultureon 10-03-2024 URC Normal [facility] Comment on above: Performed By: #### M 100.2200 ####[facility] [address] [place], [address] White blood cell (WBC) count Ordered By: Alex Acosta on 10-03-2024 WBC (Bld) [#/Vol] 6.6 10*3/uL 4.4-11.0 [facility] Bilirubin, totalOrdered By: Alex Acosta on 10-02-2024 Bilirubin [Mass/Vol] 0.20 mg/dL 0.00-1.30 [facility] CBC W/Diff, Automatedon 09-05 Absolute Lymph 1.78 X10 3/uL Normal 0.83-4.51 [facility] Comment on above: Performed By: #### L 500.4050, L501.5200, L501.2300, L100.0100 ####[facility] [address] [place], [address] Absolute Neut 3.3 X10 3/uL Normal 2.0-7.7 [facility] Comment on above: Performed By: #### L 500.4050, L501.5200, L501.2300, L100.0100 ####[facility] [address] [place], [address] Basophils/100 WBC (Bld) 0.7 % Normal 0-1 [facility] Comment on above: Performed By: #### L 500.4050, L501.5200, L501.2300, L100.0100 ####[facility] [address] [place], [address] Eosinophils/100 WBC (Bld) 6.7 % High 0-5 [facility] Comment on above: Performed By: #### L 500.4050, L501.5200, L501.2300, L100.0100 ####[facility] [address] [place], [address] Erythrocyte distribution width (RBC) [Ratio] 15.5 % High 11.6-14.6 [facility] Comment on above: Performed By: #### L 500.4050, L501.5200, L501.2300, L100.0100 ####[facility] [address] [place], [address] Hematocrit (Bld) [Volume fraction] 31.4 % Low 37-47 [facility] Comment on above: Performed By: #### L 500.4050, L501.5200, L501.2300, L100.0100 ####[facility] [address] [place], [address] Hemoglobin (Bld) [Mass/Vol] 9.1 g/dL Low 12.0-15.0 [facility] Comment on above: Performed By: #### L 500.4050, L501.5200, L501.2300, L100.0100 ####[facility] [address] [place], [address] IG% 0.300 Normal 0.0-0.9 [facility] Comment on above: Result Comment: IG% - Immature Granulocytes (promyelocytes, myelocytes andmetamyelocytes) > 1% indicates that a LEFT SHIFT is Present. Performed By: #### L 500.4050, L501.5200, L501.2300, L100.0100 ####[facility] [address] [place], [address] Lymphocytes/100 WBC (Bld) 29.0 % Normal 19-41 [facility] Comment on above: Performed By: #### L 500.4050, L501.5200, L501.2300, L100.0100 ####[facility] [address] [place], [address] MCH (RBC) [Entitic mass] 32.0 pg Normal 27.0-32.0 [facility] Comment on above: Performed By: #### L 500.4050, L501.5200, L501.2300, L100.0100 ####[facility] [address] [place], [address] MCHC (RBC) [Mass/Vol] 29.0 g/dL Low 32-36 [facility] Comment on above: Performed By: #### L 500.4050, L501.5200, L501.2300, L100.0100 ####[facility] [address] [place], [address] MCV (RBC) [Entitic vol] 110.6 fL High 81-99 [facility] Comment on above: Performed By: #### L 500.4050, L501.5200, L501.2300, L100.0100 ####[facility] [address] [place], [address] Monocytes/100 WBC (Bld) 9.0 % Normal 0-10 [facility] Comment on above: Performed By: #### L 500.4050, L501.5200, L501.2300, L100.0100 ####[facility] [address] [place], [address] Neutrophils/100 WBC (Bld) 54.3 % Normal 47-70 [facility] Comment on above: Performed By: #### L 500.4050, L501.5200, L501.2300, L100.0100 ####[facility] [address] [place], [address] Nucleated RBC (Bld) [#/Vol] 0 10*3/uL Normal 0-5 [facility] Comment on above: Performed By: #### L 500.4050, L501.5200, L501.2300, L100.0100 ####[facility] [address] [place], [address] Platelet mean volume (Bld) [Entitic vol] 12.9 fL High 6.2-12.0 [facility] Comment on above: Performed By: #### L 500.4050, L501.5200, L501.2300, L100.0100 ####[facility] [address] [place], [address] Platelets (Bld) [#/Vol] 196 10*3/uL Normal 150-450 [facility] Comment on above: Performed By: #### L 500.4050, L501.5200, L501.2300, L100.0100 ####[facility] [address] [place], [address] RBC (Bld) [#/Vol] 2.84 10*6/uL Low 4.2-5.4 [facility] Comment on above: Performed By: #### L 500.4050, L501.5200, L501.2300, L100.0100 ####[facility] [address] [place], [address] RDW SD 63.0 fl High 35.1-43.9 [facility] Comment on above: Performed By: #### L 500.4050, L501.5200, L501.2300, L100.0100 ####[facility] [address] [place], [address] WBC (Bld) [#/Vol] 6.1 10*3/uL Normal 4.4-11.0 [facility] Comment on above: Performed By: #### L 500.4050, L501.5200, L501.2300, L100.0100 ####[facility] [address] [place], [address] [facility] 10-02-2024 Albumin [Mass/Vol] 2.3 g/dL Low 3.4-4.8 [facility] Comment on above: Performed By: #### L 500.4050, L501.5200, L501.2300, L100.0100 ####[facility] [address] [place], [address] Albumin/Globulin [Mass ratio] 0.9 {ratio} Normal 0.9-2.4 [facility] Comment on above: Performed By: #### L 500.4050, L501.5200, L501.2300, L100.0100 ####[facility] [address] [place], [address] ALK PHOS 121 U/L High 35-104 [facility] Comment on above: Performed By: #### L 500.4050, L501.5200, L501.2300, L100.0100 ####[facility] [address] [place], [address] ALT [Catalytic activity/Vol] 218 U/L High <=34 [facility] Comment on above: Performed By: #### L 500.4050, L501.5200, L501.2300, L100.0100 ####[facility] [address] [place], [address] AST [Catalytic activity/Vol] 71 U/L High <=31 [facility] Comment on above: Performed By: #### L 500.4050, L501.5200, L501.2300, L100.0100 ####[facility] [address] [place], [address] Bilirubin [Mass/Vol] 0.20 mg/dL Normal 0.00-1.30 [facility] Comment on above: Performed By: #### L 500.4050, L501.5200, L501.2300, L100.0100 ####[facility] [address] [place], [address] BUN/CRE 27.5 RATIO High 10-20 [facility] Comment on above: Performed By: #### L 500.4050, L501.5200, L501.2300, L100.0100 ####[facility] [address] [place], [address] Calcium [Mass/Vol] 7.7 mg/dL Normal 7.6-11.0 [facility] Comment on above: Performed By: #### L 500.4050, L501.5200, L501.2300, L100.0100 ####[facility] [address] [place], [address] Chloride [Moles/Vol] 107 mmol/L Normal 98-108 [facility] Comment on above: Performed By: #### L 500.4050, L501.5200, L501.2300, L100.0100 ####[facility] [address] [place], [address] CO2 [Moles/Vol] 15.7 mmol/L Low 21.0-32.0 [facility] Comment on above: Performed By: #### L 500.4050, L501.5200, L501.2300, L100.0100 ####[facility] [address] [place], [address] Creatinine [Mass/Vol] 2.95 mg/dL High 0.70-1.20 [facility] Comment on above: Performed By: #### L 500.4050, L501.5200, L501.2300, L100.0100 ####[facility] [address] [place], [address] ECRCL 17.83 ml/min Low 50-250 [facility] Comment on above: Performed By: #### L 500.4050, L501.5200, L501.2300, L100.0100 ####[facility] [address] [place], [address] GAP 14 Normal 5-15 [facility] Comment on above: Performed By: #### L 500.4050, L501.5200, L501.2300, L100.0100 ####[facility] [address] [place], [address] GFR/1.73 sq M.predicted among non-blacks MDRD (S/P/Bld) [Vol rate/Area] 15 mL/min/{1.73_m2} Low >60 [facility] Comment on above: Result Comment: mL/m in/1.73m2 CKD-EPI Creatinine Equation (2020) Performed By: #### L 500.4050, L501.5200, L501.2300, L100.0100 ####[facility] [address] [place], [address] Globulin (S) [Mass/Vol] 2.6 g/dL Normal 2.2-4.2 [facility] Comment on above: Performed By: #### L 500.4050, L501.5200, L501.2300, L100.0100 ####[facility] [address] [place], [address] Glucose [Mass/Vol] 101 mg/dL High 70-99 [facility] Comment on above: Performed By: #### L 500.4050, L501.5200, L501.2300, L100.0100 ####[facility] [address] [place], [address] Potassium [Moles/Vol] 4.6 mmol/L Normal 3.3-5.1 [facility] Comment on above: Performed By: #### L 500.4050, L501.5200, L501.2300, L100.0100 ####[facility] [address] [place], [address] Sodium [Moles/Vol] 137 mmol/L Normal 133-145 [facility] Comment on above: Performed By: #### L 500.4050, L501.5200, L501.2300, L100.0100 ####[facility] [address] [place], [address] T PROT 4.9 g/dL Low 5.9-8.4 [facility] Comment on above: Performed By: #### L 500.4050, L501.5200, L501.2300, L100.0100 ####[facility] [address] [place], [address] Urea nitrogen [Mass/Vol] 81 mg/dL High 4-19 [facility] Comment on above: Performed By: #### L 500.4050, L501.5200, L501.2300, L100.0100 ####[facility] [address] [place], [address] Magnesiumon 10-02-2024 Magnesium [Mass/Vol] 2.3 mg/dL High 1.5-2.2 [facility] Comment on above: Performed By: #### L 500.4050, L501.5200, L501.2300, L100.0100 ####[facility] [address] [place], [address] Magnesium measurement (mass/ volume)Ordered By: Alex Acosta on 10-02-2024 Magnesium (Unsp spec) [Mass/Vol] 2.3 mg/dL High 1.5-2.2 [facility] No Panel InformationOrdered By: Alex Acosta on 10-02-2024 71 U/L High <32 [facility] Phosphoruson 10-02-2024 Phosphate [Mass/Vol] 6.5 mg/dL High 2.7-4.5 [facility] Comment on above: Performed By: #### L 500.4050, L501.5200, L501.2300, L100.0100 ####[facility] [address] [place], [address] Serum globulin measurementOr dered By: Alex Acosta on 10-02-2024 Globulin (S) [Mass/Vol] 2.6 g/dL 2.2-4.2 [facility] Serum or plasma alanine huertas otransferase (ALT) measurementOrdered By: Alex Acosta on 10-02-2024 ALT [Catalytic activity/Vol] 218 U/L High <35 [facility] Serum or plasma albumin farheen urement (mass/volume)Ordered By: Alex Acosta on 10-02-2024 Albumin [Mass/Vol] 2.3 g/dL Low 3.4-4.8 [facility] Serum or plasma albumin/glob ulin mass ratioOrdered By: Alex Acosta on 10-02-2024 Albumin/Globulin [Mass ratio] 0.9 {ratio} 0.9-2.4 [facility] Serum or plasma alkaline mariya sphatase measurementOrdered By: Alex Acosta on 10-02-2024 ALP [Catalytic activity/Vol] 121 U/L High 35-104 [facility] Total proteinOrdered By: Kailey Acosta on 10-02-2024 Protein [Mass/Vol] 4.9 g/dL Low 5.9-8.4 [facility] Assessment of wrist artery p atency prior to arterial punctureOrdered By: Alex Acosta on 10-01-2024 Arterial patency Wrist artery --pre arterial puncture Positive [facility] Basic Metabolic Profile (BMP )on 10-01-2024 BUN/CRE 27.2 RATIO High 10-20 [facility] Comment on above: Performed By: #### L 500.2500 ####[facility] [address] [place], [address] Calcium [Mass/Vol] 7.9 mg/dL Normal 7.6-11.0 [facility] Comment on above: Performed By: #### L 500.2500 ####[facility] [address] [place], [address] Chloride [Moles/Vol] 111 mmol/L High 98-108 [facility] Comment on above: Performed By: #### L 500.2500 ####[facility] [address] [place], [address] CO2 [Moles/Vol] 15.5 mmol/L Low 21.0-32.0 [facility] Comment on above: Performed By: #### L 500.2500 ####[facility] [address] [place], [address] Creatinine [Mass/Vol] 3.11 mg/dL High 0.70-1.20 [facility] Comment on above: Performed By: #### L 500.2500 ####[facility] [address] [place], [address] ECRCL 16.66 ml/min Low 50-250 [facility] Comment on above: Performed By: #### L 500.2500 ####[facility] [address] [place], [address] GAP 14 Normal 5-15 [facility] Comment on above: Performed By: #### L 500.2500 ####[facility] [address] [place], [address] GFR/1.73 sq M.predicted among non-blacks MDRD (S/P/Bld) [Vol rate/Area] 14 mL/min/{1.73_m2} Low >60 [facility] Comment on above: Result Comment: mL/m in/1.73m2 CKD-EPI Creatinine Equation (2020) Performed By: #### L 500.2500 ####[facility] [address] [place], [address] Glucose [Mass/Vol] 104 mg/dL High 70-99 [facility] Comment on above: Performed By: #### L 500.2500 ####[facility] [address] [place], [address] Potassium [Moles/Vol] 5.0 mmol/L Normal 3.3-5.1 [facility] Comment on above: Performed By: #### L 500.2500 ####[facility] [address] [place], [address] Sodium [Moles/Vol] 140 mmol/L Normal 133-145 [facility] Comment on above: Performed By: #### L 500.2500 ####[facility] [address] [place], [address] Urea nitrogen [Mass/Vol] 85 mg/dL High 4-19 [facility] Comment on above: Performed By: #### L 500.2500 ####[facility] [address] [place], [address] BUN/CRE 26.8 RATIO High 10-20 [facility] Comment on above: Performed By: #### L 500.2500, L100.0100 ####[facility] [address] [place], [address] Calcium [Mass/Vol] 7.5 mg/dL Low 7.6-11.0 [facility] Comment on above: Performed By: #### L 500.2500, L100.0100 ####[facility] [address] [place], [address] Chloride [Moles/Vol] 115 mmol/L High 98-108 [facility] Comment on above: Performed By: #### L 500.2500, L100.0100 ####[facility] [address] [place], [address] CO2 [Moles/Vol] 12.9 mmol/L Low 21.0-32.0 [facility] Comment on above: Performed By: #### L 500.2500, L100.0100 ####[facility] [address] [place], [address] Creatinine [Mass/Vol] 3.19 mg/dL High 0.70-1.20 [facility] Comment on above: Performed By: #### L 500.2500, L100.0100 ####[facility] [address] [place], [address] ECRCL 16.24 ml/min Low 50-250 [facility] Comment on above: Performed By: #### L 500.2500, L100.0100 ####[facility] [address] [place], [address] GAP 12 Normal 5-15 [facility] Comment on above: Performed By: #### L 500.2500, L100.0100 ####[facility] [address] [place], [address] GFR/1.73 sq M.predicted among non-blacks MDRD (S/P/Bld) [Vol rate/Area] 14 mL/min/{1.73_m2} Low >60 [facility] Comment on above: Result Comment: mL/m in/1.73m2 CKD-EPI Creatinine Equation (2020) Performed By: #### L 500.2500, L100.0100 ####[facility] [address] [place], [address] Glucose [Mass/Vol] 98 mg/dL Normal 70-99 [facility] Comment on above: Performed By: #### L 500.2500, L100.0100 ####[facility] [address] [place], [address] Potassium [Moles/Vol] 5.3 mmol/L High 3.3-5.1 [facility] Comment on above: Result Comment: Hemo lysis present, Results??could be affected.?? Performed By: #### L 500.2500, L100.0100 ####[facility] [address] [place], [address] Sodium [Moles/Vol] 140 mmol/L Normal 133-145 [facility] Comment on above: Performed By: #### L 500.2500, L100.0100 ####[facility] [address] [place], [address] Urea nitrogen [Mass/Vol] 85 mg/dL High 4-19 [facility] Comment on above: Performed By: #### L 500.2500, L100.0100 ####[facility] [address] [place], [address] Blood Gases by [facility] 10-01-2 025 ALMA DELIA TEST Positive Normal [facility] Comment on above: Performed By: #### L 9000.0800 ####[facility] [address] [place], [address] Base excess Calc (Bld) [Moles/Vol] -12 mmol/L Low -2 to +2 [facility] Comment on above: Performed By: #### L 9000.0800 ####[facility] [address] [place], [address] Blood Gas Type ART Normal [facility] Comment on above: Performed By: #### L 9000.0800 ####[facility] [address] [place], [address] CO2 [Moles/Vol] 17 mmol/L Normal [facility] Comment on above: Performed By: #### L 0.0800 ####[facility] [address] [place], [address] FI02 21.0 [facility] Comment on above: Performed By: #### L 9000.0800 ####[facility] [address] [place], [address] HCO3 (Bld) [Moles/Vol] 15.7 mmol/L Low 22-26 [facility] Comment on above: Performed By: #### L 9000.0800 ####[facility] [address] [place], [address] Mode Not entered Normal [facility] Comment on above: Performed By: #### L 9000.0800 ####[facility] [address] [place], [address] O2 Delivery Dev Room Air Normal [facility] Comment on above: Performed By: #### L 0.0800 ####[facility] [address] [place], [address] pCO2 38.4 mmHg Normal 35-45 [facility] Comment on above: Performed By: #### L 9000.0800 ####[facility] [address] [place], [address] pH (Bld) 7.22 [pH] Low 7.35-7.45 [facility] Comment on above: Performed By: #### L 9000.0800 ####[facility] [address] [place], [address] PO2 80 mmHG Normal 75-100 [facility] Comment on above: Performed By: #### L 9000.0800 ####[facility] [address] [place], [address] SITE R Radial Normal [facility] Comment on above: Performed By: #### L 9000.0800 ####[facility] [address] [place], [address] SO2 93 Low 95-99 [facility] Comment on above: Performed By: #### L 9000.0800 ####[facility] [address] [place], [address] Blood base excess determinat ionOrdered By: Alex Acosta on 10-01-2024 Base excess Calc (BldV) [Moles/Vol] -12 mmol/L Low -2-2 [facility] Blood bicarbonate measuremen tOrdered By: Alex Acosta on 10-01-2024 HCO3 (Bld) [Moles/Vol] 15.7 mmol/L Low 22-26 [facility] CBC W/Diff, Automatedon 09-05 Absolute Neut Normal 2.0-7.7 [facility] Comment on above: Result Comment: YVONNE ENT DISCHARGED Performed By: #### L 500.2500, L100.0100 ####[facility] [address] [place], [address] HCT Normal 37-47 [facility] Comment on above: Result Comment: YVONNE ENT DISCHARGED Performed By: #### L 500.2500, L100.0100 ####[facility] [address] [place], [address] HGB Normal 12.0-15.0 [facility] Comment on above: Result Comment: YVONNE ENT DISCHARGED Performed By: #### L 500.2500, L100.0100 ####[facility] [address] [place], [address] MCH Normal 27.0-32.0 [facility] Comment on above: Result Comment: YVONNE ENT DISCHARGED Performed By: #### L 500.2500, L100.0100 ####[facility] [address] [place], [address] MCHC Normal 32-36 [facility] Comment on above: Result Comment: YVONNE ENT DISCHARGED Performed By: #### L 500.2500, L100.0100 ####[facility] [address] [place], [address] MCV Normal 81-99 [facility] Comment on above: Result Comment: YVONNE ENT DISCHARGED Performed By: #### L 500.2500, L100.0100 ####[facility] [address] [place], [address] NEUT% Normal 47-70 [facility] Comment on above: Result Comment: YVONNE ENT DISCHARGED Performed By: #### L 500.2500, L100.0100 ####[facility] [address] [place], [address] PLT Normal 150-450 [facility] Comment on above: Result Comment: YVONNE ENT DISCHARGED Performed By: #### L 500.2500, L100.0100 ####[facility] [address] [place], [address] RBC Normal 4.2-5.4 [facility] Comment on above: Result Comment: YVONNE ENT DISCHARGED Performed By: #### L 500.2500, L100.0100 ####[facility] [address] [place], [address] RDW CV Normal 11.6-14.6 [facility] Comment on above: Result Comment: YVONNE ENT DISCHARGED Performed By: #### L 500.2500, L100.0100 ####[facility] [address] [place], [address] RDW SD Normal 35.1-43.9 [facility] Comment on above: Result Comment: YVONNE ENT DISCHARGED Performed By: #### L 500.2500, L100.0100 ####[facility] [address] [place], [address] WBC Normal 4.4-11.0 [facility] Comment on above: Result Comment: YVNONE ENT DISCHARGED Performed By: #### L 500.2500, L100.0100 ####[facility] [address] [place], [address] Measurement, pHOrdered By: Ashley Acosta on 10-01-2024 pH (Unsp spec) 7.22 [pH] Low 7.35-7.45 [facility] No Panel InformationOrdered By: Alex Acosta on 10-01-2024 ART [facility] R Radial [facility] Not entered [facility] Room Air [facility] Total carbon dioxide measure mentOrdered By: Alex Acosta on 10-01-2024 CO2 [Moles/Vol] 17 mmol/L [facility] Urine Cultureon 10-01-2024 URC Normal [facility] Comment on above: Performed By: #### M 100.2200 ####[facility] [address] [place], [address] Basic Metabolic Profile (BMP )on 09-30-2024 BUN/CRE 27.1 RATIO High 10-20 [facility] Comment on above: Performed By: #### L 100.0100, L500.2500 ####[facility] [address] [place], [address] Calcium [Mass/Vol] 7.6 mg/dL Normal 7.6-11.0 [facility] Comment on above: Performed By: #### L 100.0100, L500.2500 ####[facility] [address] [place], [address] Chloride [Moles/Vol] 113 mmol/L High 98-108 [facility] Comment on above: Performed By: #### L 100.0100, L500.2500 ####[facility] [address] [place], [address] CO2 [Moles/Vol] 14.3 mmol/L Low 21.0-32.0 [facility] Comment on above: Performed By: #### L 100.0100, L500.2500 ####[facility] [address] [place], [address] Creatinine [Mass/Vol] 3.53 mg/dL High 0.70-1.20 [facility] Comment on above: Performed By: #### L 100.0100, L500.2500 ####[facility] [address] [place], [address] ECRCL 14.64 ml/min Low 50-250 [facility] Comment on above: Performed By: #### L 100.0100, L500.2500 ####[facility] [address] [place], [address] GAP 12 Normal 5-15 [facility] Comment on above: Performed By: #### L 100.0100, L500.2500 ####[facility] [address] [place], [address] GFR/1.73 sq M.predicted among non-blacks MDRD (S/P/Bld) [Vol rate/Area] 12 mL/min/{1.73_m2} Low >60 [facility] Comment on above: Result Comment: mL/m in/1.73m2 CKD-EPI Creatinine Equation (2020) Performed By: #### L 100.0100, L500.2500 ####[facility] [address] [place], [address] Glucose [Mass/Vol] 99 mg/dL Normal 70-99 [facility] Comment on above: Performed By: #### L 100.0100, L500.2500 ####[facility] [address] [place], [address] Potassium [Moles/Vol] 5.1 mmol/L Normal 3.3-5.1 [facility] Comment on above: Performed By: #### L 100.0100, L500.2500 ####[facility] [address] [place], [address] Sodium [Moles/Vol] 140 mmol/L Normal 133-145 [facility] Comment on above: Performed By: #### L 100.0100, L500.2500 ####[facility] [address] [place], [address] Urea nitrogen [Mass/Vol] 96 mg/dL High 4-19 [facility] Comment on above: Performed By: #### L 100.0100, L500.2500 ####[facility] [address] [place], [address] CBC W/Diff, Automatedon 06-2 Absolute Lymph 1.86 X10 3/uL Normal 0.83-4.51 [facility] Comment on above: Performed By: #### L 100.0100, L500.2500 ####[facility] [address] [place], [address] Absolute Neut 3.7 X10 3/uL Normal 2.0-7.7 [facility] Comment on above: Performed By: #### L 100.0100, L500.2500 ####[facility] [address] [place], [address] Basophils/100 WBC (Bld) 0.3 % Normal 0-1 [facility] Comment on above: Performed By: #### L 100.0100, L500.2500 ####[facility] [address] [place], [address] Eosinophils/100 WBC (Bld) 4.3 % Normal 0-5 [facility] Comment on above: Performed By: #### L 100.0100, L500.2500 ####[facility] [address] [place], [address] Erythrocyte distribution width (RBC) [Ratio] 15.6 % High 11.6-14.6 [facility] Comment on above: Performed By: #### L 100.0100, L500.2500 ####[facility] [address] [place], [address] Hematocrit (Bld) [Volume fraction] 28.0 % Low 37-47 [facility] Comment on above: Performed By: #### L 100.0100, L500.2500 ####[facility] [address] [place], [address] Hemoglobin (Bld) [Mass/Vol] 8.7 g/dL Low 12.0-15.0 [facility] Comment on above: Performed By: #### L 100.0100, L500.2500 ####[facility] [address] [place], [address] IG% 0.500 Normal 0.0-0.9 [facility] Comment on above: Result Comment: IG% - Immature Granulocytes (promyelocytes, myelocytes andmetamyelocytes) > 1% indicates that a LEFT SHIFT is Present. Performed By: #### L 100.0100, L500.2500 ####[facility] [address] [place], [address] Lymphocytes/100 WBC (Bld) 28.6 % Normal 19-41 [facility] Comment on above: Performed By: #### L 100.0100, L500.2500 ####[facility] [address] [place], [address] MCH (RBC) [Entitic mass] 32.1 pg High 27.0-32.0 [facility] Comment on above: Performed By: #### L 100.0100, L500.2500 ####[facility] [address] [place], [address] MCHC (RBC) [Mass/Vol] 31.1 g/dL Low 32-36 [facility] Comment on above: Performed By: #### L 100.0100, L500.2500 ####[facility] [address] [place], [address] MCV (RBC) [Entitic vol] 103.3 fL High 81-99 [facility] Comment on above: Performed By: #### L 100.0100, L500.2500 ####[facility] [address] [place], [address] Monocytes/100 WBC (Bld) 8.9 % Normal 0-10 [facility] Comment on above: Performed By: #### L 100.0100, L500.2500 ####[facility] [address] [place], [address] Neutrophils/100 WBC (Bld) 57.4 % Normal 47-70 [facility] Comment on above: Performed By: #### L 100.0100, L500.2500 ####[facility] [address] [place], [address] Nucleated RBC (Bld) [#/Vol] 0 10*3/uL Normal 0-5 [facility] Comment on above: Performed By: #### L 100.0100, L500.2500 ####[facility] [address] [place], [address] Platelet mean volume (Bld) [Entitic vol] 13.3 fL High 6.2-12.0 [facility] Comment on above: Performed By: #### L 100.0100, L500.2500 ####[facility] [address] [place], [address] Platelets (Bld) [#/Vol] 195 10*3/uL Normal 150-450 [facility] Comment on above: Performed By: #### L 100.0100, L500.2500 ####[facility] [address] [place], [address] RBC (Bld) [#/Vol] 2.71 10*6/uL Low 4.2-5.4 [facility] Comment on above: Performed By: #### L 100.0100, L500.2500 ####[facility] [address] [place], [address] RDW SD 59.2 fl High 35.1-43.9 [facility] Comment on above: Performed By: #### L 100.0100, L500.2500 ####[facility] [address] [place], [address] WBC (Bld) [#/Vol] 6.5 10*3/uL Normal 4.4-11.0 [facility] Comment on above: Performed By: #### L 100.0100, L500.2500 ####[facility] [address] [place], [address] Urine cultureOrdered By: Helen Zamora on 09-30-2024 Bacteria identified Cx Nom (U) Enterococcus raffinosus Abnormal [facility] Basic Metabolic Profile (BMP )on 09-29-2024 BUN/CRE 26.7 RATIO High 10-20 [facility] Comment on above: Performed By: #### L 500.2500 ####[facility] [address] [place], [address] Chloride [Moles/Vol] 112 mmol/L High 98-108 [facility] Comment on above: Performed By: #### L 500.2500 ####[facility] [address] [place], [address] CO2 [Moles/Vol] 12.4 mmol/L Low 21.0-32.0 [facility] Comment on above: Performed By: #### L 500.2500 ####[facility] [address] [place], [address] Creatinine [Mass/Vol] 3.90 mg/dL High 0.70-1.20 [facility] Comment on above: Performed By: #### L 500.2500 ####[facility] [address] [place], [address] ECRCL 13.06 ml/min Low 50-250 [facility] Comment on above: Performed By: #### L 500.2500 ####[facility] [address] [place], [address] GAP 17 High 5-15 [facility] Comment on above: Performed By: #### L 500.2500 ####[facility] [address] [place], [address] Glucose [Mass/Vol] 147 mg/dL High 70-99 [facility] Comment on above: Performed By: #### L 500.2500 ####[facility] [address] [place], [address] Potassium [Moles/Vol] 5.1 mmol/L Normal 3.3-5.1 [facility] Comment on above: Performed By: #### L 500.2500 ####[facility] [address] [place], [address] Urea nitrogen [Mass/Vol] 104 mg/dL Invalid Interpretation Code 4 [facility] Comment on above: Result Comment: Crit ical Result(s) Called at:0251 by:??CHRISTIANNE GREGG Results read back by same. Performed By: #### L 500.2500 ####[facility] [address] [place], [address] Bedside Glucoseon 09-29-2024 FINGERSTICK GLU 81 mg/dL Normal 74-106 [facility] Comment on above: Result Comment: ALDIA GEMENT OF PATIENT CARE PER NURSING PROTOCOL Performed By: #### L 501.080 ####[facility] [address] [place], [address] FINGERSTICK GLU 87 mg/dL Normal 74-106 [facility] Comment on above: Result Comment: ALIDA GEMENT OF PATIENT CARE PER NURSING PROTOCOL Performed By: #### L 501.080 ####[facility] [address] [place], [address] FINGERSTICK GLU 52 mg/dL Low 74-106 [facility] Comment on above: Result Comment: ALIDA GEMENT OF PATIENT CARE PER NURSING PROTOCOL Performed By: #### L 501.080 ####[facility] [address] [place], [address] FINGERSTICK GLU 89 mg/dL Normal 74-106 [facility] Comment on above: Result Comment: ALIDA GEMENT OF PATIENT CARE PER NURSING PROTOCOL Performed By: #### L 501.080 ####[facility] [address] [place], [address] FINGERSTICK GLU 59 mg/dL Low 74-106 [facility] Comment on above: Result Comment: ALIDA GEMENT OF PATIENT CARE PER NURSING PROTOCOL Performed By: #### L 501.080 ####[facility] [address] [place], [address] FINGERSTICK GLU 143 mg/dL High 74-106 [facility] Comment on above: Result Comment: ALIDA GLASS OF PATIENT CARE PER NURSING PROTOCOL Performed By: #### L 501.080 ####[facility] [address] [place], [address] CBC W/Diff, Automatedon 06-2 Absolute Lymph 1.77 X10 3/uL Normal 0.83-4.51 [facility] Comment on above: Performed By: #### L 100.0100, L500.4050 ####[facility] [address] [place], [address] Absolute Neut 2.9 X10 3/uL Normal 2.0-7.7 [facility] Comment on above: Performed By: #### L 100.0100, L500.4050 ####[facility] [address] [place], [address] Basophils/100 WBC (Bld) 0.5 % Normal 0-1 [facility] Comment on above: Performed By: #### L 100.0100, L500.4050 ####[facility] [address] [place], [address] Eosinophils/100 WBC (Bld) 3.8 % Normal 0-5 [facility] Comment on above: Performed By: #### L 100.0100, L500.4050 ####[facility] [address] [place], [address] Erythrocyte distribution width (RBC) [Ratio] 15.4 % High 11.6-14.6 [facility] Comment on above: Performed By: #### L 100.0100, L500.4050 ####[facility] [address] [place], [address] Hematocrit (Bld) [Volume fraction] 29.4 % Low 37-47 [facility] Comment on above: Performed By: #### L 100.0100, L500.4050 ####[facility] [address] [place], [address] Hemoglobin (Bld) [Mass/Vol] 8.9 g/dL Low 12.0-15.0 [facility] Comment on above: Performed By: #### L 100.0100, L500.4050 ####[facility] [address] [place], [address] IG% 0.200 Normal 0.0-0.9 [facility] Comment on above: Result Comment: IG% - Immature Granulocytes (promyelocytes, myelocytes andmetamyelocytes) > 1% indicates that a LEFT SHIFT is Present. Performed By: #### L 100.0100, L500.4050 ####[facility] [address] [place], [address] Lymphocytes/100 WBC (Bld) 32.2 % Normal 19-41 [facility] Comment on above: Performed By: #### L 100.0100, L500.4050 ####[facility] [address] [place], [address] MCH (RBC) [Entitic mass] 31.8 pg Normal 27.0-32.0 [facility] Comment on above: Performed By: #### L 100.0100, L500.4050 ####[facility] [address] [place], [address] MCHC (RBC) [Mass/Vol] 30.3 g/dL Low 32-36 [facility] Comment on above: Performed By: #### L 100.0100, L500.4050 ####[facility] [address] [place], [address] MCV (RBC) [Entitic vol] 105.0 fL High 81-99 [facility] Comment on above: Performed By: #### L 100.0100, L500.4050 ####[facility] [address] [place], [address] Monocytes/100 WBC (Bld) 9.8 % Normal 0-10 [facility] Comment on above: Performed By: #### L 100.0100, L500.4050 ####[facility] [address] [place], [address] Neutrophils/100 WBC (Bld) 53.5 % Normal 47-70 [facility] Comment on above: Performed By: #### L 100.0100, L500.4050 ####[facility] [address] [place], [address] Nucleated RBC (Bld) [#/Vol] 0 10*3/uL Normal 0-5 [facility] Comment on above: Performed By: #### L 100.0100, L500.4050 ####[facility] [address] [place], [address] Platelet mean volume (Bld) [Entitic vol] 13.8 fL High 6.2-12.0 [facility] Comment on above: Performed By: #### L 100.0100, L500.4050 ####[facility] [address] [place], [address] Platelets (Bld) [#/Vol] 189 10*3/uL Normal 150-450 [facility] Comment on above: Performed By: #### L 100.0100, L500.4050 ####[facility] [address] [place], [address] RBC (Bld) [#/Vol] 2.80 10*6/uL Low 4.2-5.4 [facility] Comment on above: Performed By: #### L 100.0100, L500.4050 ####[facility] [address] [place], [address] RDW SD 59.1 fl High 35.1-43.9 [facility] Comment on above: Performed By: #### L 100.0100, L500.4050 ####[facility] [address] [place], [address] WBC (Bld) [#/Vol] 5.5 10*3/uL Normal 4.4-11.0 [facility] Comment on above: Performed By: #### L 100.0100, L500.4050 ####[facility] [address] [place], [address] CNPNon 09-29-2024 CNPN Telephone (FAMPWS) JOHNMARI Gerry ([id number]) 1940 F Date Time Provider Department 09/29/24 LIZY CAPONE [facility] During your visit today, we recorded the following information about you: Adela Pena LPN 09/29/2024 10:28 AM Signed Patient friend said she is her POA, Alex calling said patient is currently admitted to [facility]. She was taken via squad last night, [...] to toe Date Reviewed: 09/22/2024 Reviewed by: Lackey, Alex, MA - Fully Assessed Reason for Visit: [...] [1003] 05/07/2005 07/12/2021 INJURY TRUNK SITE NEC [[id number]] 01/16/2006 07/01/2007 Anemia in chronic kidney disease [...] with scia (more content not included)... Normal [facility] Albumin [Mass/Vol] 2.9 g/dL Low 3.4-4.8 [facility] Comment on above: Performed By: #### L 100.0100, L500.4050 ####[facility] [address] [place], [address] Albumin/Globulin [Mass ratio] 1.2 {ratio} Normal 0.9-2.4 [facility] Comment on above: Performed By: #### L 100.0100, L500.4050 ####[facility] [address] [place], [address] ALK PHOS 148 U/L High 35-104 [facility] Comment on above: Performed By: #### L 100.0100, L500.4050 ####[facility] [address] [place], [address] ALT [Catalytic activity/Vol] 485 U/L High <=34 [facility] Comment on above: Performed By: #### L 100.0100, L500.4050 ####[facility] [address] [place], [address] AST [Catalytic activity/Vol] 561 U/L High <=31 [facility] Comment on above: Performed By: #### L 100.0100, L500.4050 ####[facility] [address] [place], [address] Bilirubin [Mass/Vol] 0.18 mg/dL Normal 0.00-1.30 [facility] Comment on above: Performed By: #### L 100.0100, L500.4050 ####[facility] [address] [place], [address] BUN/CRE 27.2 RATIO High 10-20 [facility] Comment on above: Performed By: #### L 100.0100, L500.4050 ####[facility] [address] [place], [address] Calcium [Mass/Vol] 8.0 mg/dL Normal 7.6-11.0 [facility] Comment on above: Performed By: #### L 100.0100, L500.4050 ####[facility] [address] [place], [address] Performed By: #### L 500.2500 ####[facility] [address] [place], [address] Chloride [Moles/Vol] 111 mmol/L High 98-108 [facility] Comment on above: Performed By: #### L 100.0100, L500.4050 ####[facility] [address] [place], [address] CO2 [Moles/Vol] 13.6 mmol/L Low 21.0-32.0 [facility] Comment on above: Performed By: #### L 100.0100, L500.4050 ####[facility] [address] [place], [address] Creatinine [Mass/Vol] 3.78 mg/dL High 0.70-1.20 [facility] Comment on above: Performed By: #### L 100.0100, L500.4050 ####[facility] [address] [place], [address] ECRCL 13.47 ml/min Low 50-250 [facility] Comment on above: Performed By: #### L 100.0100, L500.4050 ####[facility] [address] [place], [address] GAP 16 High 5-15 [facility] Comment on above: Performed By: #### L 100.0100, L500.4050 ####[facility] [address] [place], [address] GFR/1.73 sq M.predicted among non-blacks MDRD (S/P/Bld) [Vol rate/Area] 11 mL/min/{1.73_m2} Low >60 [facility] Comment on above: Result Comment: mL/m in/1.73m2 CKD-EPI Creatinine Equation (2020) Performed By: #### L 100.0100, L500.4050 ####[facility] [address] [place], [address] Performed By: #### L 500.2500 ####[facility] [address] [place], [address] Globulin (S) [Mass/Vol] 2.4 g/dL Normal 2.2-4.2 [facility] Comment on above: Performed By: #### L 100.0100, L500.4050 ####[facility] [address] [place], [address] Glucose [Mass/Vol] 62 mg/dL Low 70-99 [facility] Comment on above: Performed By: #### L 100.0100, L500.4050 ####[facility] [address] [place], [address] Potassium [Moles/Vol] 4.7 mmol/L Normal 3.3-5.1 [facility] Comment on above: Performed By: #### L 100.0100, L500.4050 ####[facility] [address] [place], [address] Sodium [Moles/Vol] 141 mmol/L Normal 133-145 [facility] Comment on above: Performed By: #### L 100.0100, L500.4050 ####[facility] [address] [place], [address] Performed By: #### L 500.2500 ####[facility] [address] [place], [address] T PROT 5.3 g/dL Low 5.9-8.4 [facility] Comment on above: Performed By: #### L 100.0100, L500.4050 ####[facility] [address] [place], [address] Urea nitrogen [Mass/Vol] 103 mg/dL Invalid Interpretation Code 4-19 [facility] Comment on above: Result Comment: Crit ical Result(s) Called at:0413 by: CHRISTIANNE WAGNER??Results read back by same. Performed By: #### L 100.0100, L500.4050 ####[facility] [address] [place], [address] Consultation - Nephrologyon 09-29-2024 Consultation - Nephrology Normal [facility] deOrdered By: Russell Todd on 09-29-2024 Glucose [Mass/Vol] 81 mg/dL 74-106 [facility] L499.0042on 09-29-2024 Trop T High Sen 55 ng/L Invalid Interpretation Code <=14 [facility] Comment on above: Result Comment: Crit ical Result(s) Called at:0236 by:??CHRISTIANNE WAGNER Results read back by same. Performed By: #### L 499.0042 ####[facility] [address] [place], [address] L499.0043on 09-29-2024 Trop T High Sen 44 ng/L High <=14 [facility] Comment on above: Performed By: #### L 499.0043 ####[facility] [address] [place], [place], [id number] Troponin T.cardiac [Mass/vol ume] in Serum or Plasma by High sensitivity methodOrdered By: Michelle Gallardo on 09-29-2024 Troponin T.cardiac High sensitivity method [Mass/Vol] 44 ng/L High <14 [facility] Troponin T.cardiac High sensitivity method [Mass/Vol] 55 ng/L High <14 [facility] Urine cultureOrdered By: Sandra Gallardo on 09-29-2024 Bacteria identified Cx Nom (U) Escherichia coli Abnormal [facility] Absolute lymphocyte countOrd ered By: Jhonatan Maxwell on 09-28-2024 Lymphocytes Auto (Unsp spec) [#/Vol] 1.52 10*3/uL 0.83-4.51 [facility] Anion gap in Serum or Plasma Ordered By: Jhonatan Maxwell on 09-28-2024 Anion gap [Moles/Vol] 15 mmol/L 5-15 [facility] Automated lymphocyte count a s percentage of total leukocytesOrdered By: Jhonatan Maxwell on 09-28-2024 Lymphocytes/100 WBC Auto (Unsp spec) 20.1 % -41 [facility] BUN/creatinine ratioOrdered By: Jhonatan Maxwell on 09-28-2024 Urea nitrogen/Creatinine [Mass ratio] 26.7 mg/mg High 10- [facility] Basic Metabolic Profile (BMP )on 09-28-2024 BUN/CRE 26.2 RATIO High 10- [facility] Comment on above: Performed By: #### L 500.2500 ####[facility] [address] [place], [address] Calcium [Mass/Vol] 8.2 mg/dL Normal 7.6-11.0 [facility] Comment on above: Performed By: #### L 500.2500 ####[facility] [address] [place], [address] Chloride [Moles/Vol] 113 mmol/L High 98-108 [facility] Comment on above: Performed By: #### L 500.2500 ####[facility] [address] [place], [address] CO2 [Moles/Vol] 11.1 mmol/L Low 21.0-32.0 [facility] Comment on above: Performed By: #### L 500.2500 ####[facility] [address] [place], [address] Creatinine [Mass/Vol] 3.97 mg/dL High 0.70-1.20 [facility] Comment on above: Performed By: #### L 500.2500 ####[facility] [address] [place], [address] ECRCL 12.83 ml/min Low 50-250 [facility] Comment on above: Performed By: #### L 500.2500 ####[facility] [address] [place], [address] GAP 16 High 5-15 [facility] Comment on above: Performed By: #### L 500.2500 ####[facility] [address] [place], [address] GFR/1.73 sq M.predicted among non-blacks MDRD (S/P/Bld) [Vol rate/Area] 11 mL/min/{1.73_m2} Low >60 [facility] Comment on above: Result Comment: mL/m in/1.73m2 CKD-EPI Creatinine Equation (2020) Performed By: #### L 500.2500 ####[facility] [address] [place], [address] Glucose [Mass/Vol] 170 mg/dL High 70-99 [facility] Comment on above: Performed By: #### L 500.2500 ####[facility] [address] [place], [address] Potassium [Moles/Vol] 5.4 mmol/L High 3.3-5.1 [facility] Comment on above: Performed By: #### L 500.2500 ####[facility] [address] [place], [place], [id number] Sodium [Moles/Vol] 139 mmol/L Normal 133-145 [facility] Comment on above: Performed By: #### L 500.2500 ####[facility] [address] [place], [place], [id number] Urea nitrogen [Mass/Vol] 104 mg/dL Invalid Interpretation Code 4 [facility] Comment on above: Result Comment: Crit ical Result(s) Called at: 2340 by:??CHRISTIANNE SCHMITZ Results read back by same. Performed By: #### L 500.2500 ####[facility] [address] [place], [place], [address] Basophil percentageOrdered B y: Jhonatan Maxwell on 09-28-2024 Basophils/100 WBC (Bld) 0.3 % 0-1 [facility] Bedside Glucoseon 09-28-2024 FINGERSTICK GLU 145 mg/dL High 74-106 [facility] Comment on above: Result Comment: ALIDA GLASS OF PATIENT CARE PER NURSING PROTOCOL Performed By: #### L 501.080 ####[facility] [address] [place], [place], [id number] Bilirubin Test strip Ql (U)O rdered By: Jhonatan Maxwell on 09-28-2024 Bilirubin Ql (U) Negative Negative [facility] Bilirubin, totalOrdered By: Jhonatan Maxwell on 09-28-2024 Bilirubin [Mass/Vol] 0.20 mg/dL 0.00-1.30 [facility] Brain/Head without Contrasto n 09-28-2024 Brain/Head without Contrast Normal [facility] CBC W/Diff, Automatedon 09-05 Absolute Lymph 1.52 X10 3/uL Normal 0.83-4.51 [facility] Comment on above: Performed By: #### L 500.4050, L501.2450, L501.5200, L503.6005, L100.0100 ####[facility] [address] [place], [address] Absolute Neut 5.1 X10 3/uL Normal 2.0-7.7 [facility] Comment on above: Performed By: #### L 500.4050, L501.2450, L501.5200, L503.6005, L100.0100 ####[facility] [address] [place], [address] Basophils/100 WBC (Bld) 0.3 % Normal 0-1 [facility] Comment on above: Performed By: #### L 500.4050, L501.2450, L501.5200, L503.6005, L100.0100 ####[facility] [address] [place], [address] Eosinophils/100 WBC (Bld) 3.6 % Normal 0-5 [facility] Comment on above: Performed By: #### L 500.4050, L501.2450, L501.5200, L503.6005, L100.0100 ####[facility] [address] [place], [address] Erythrocyte distribution width (RBC) [Ratio] 15.5 % High 11.6-14.6 [facility] Comment on above: Performed By: #### L 500.4050, L501.2450, L501.5200, L503.6005, L100.0100 ####[facility] [address] [place], [address] Hematocrit (Bld) [Volume fraction] 30.0 % Low 37-47 [facility] Comment on above: Performed By: #### L 500.4050, L501.2450, L501.5200, L503.6005, L100.0100 ####[facility] [address] [place], [address] Hemoglobin (Bld) [Mass/Vol] 9.2 g/dL Low 12.0-15.0 [facility] Comment on above: Performed By: #### L 500.4050, L501.2450, L501.5200, L503.6005, L100.0100 ####[facility] [address] [place], [address] IG% 0.400 Normal 0.0-0.9 [facility] Comment on above: Result Comment: IG% - Immature Granulocytes (promyelocytes, myelocytes andmetamyelocytes) > 1% indicates that a LEFT SHIFT is Present. Performed By: #### L 500.4050, L501.2450, L501.5200, L503.6005, L100.0100 ####[facility] [address] [facility] [place] [place], [address] Lymphocytes/100 WBC (Bld) 20.1 % Normal 19-41 [facility] Comment on above: Performed By: #### L 500.4050, L501.2450, L501.5200, L503.6005, L100.0100 ####[facility] [address] [place], [address] MCH (RBC) [Entitic mass] 31.9 pg Normal 27.0-32.0 [facility] Comment on above: Performed By: #### L 500.4050, L501.2450, L501.5200, L503.6005, L100.0100 ####[facility] [address] [place], [address] MCHC (RBC) [Mass/Vol] 30.7 g/dL Low 32-36 [facility] Comment on above: Performed By: #### L 500.4050, L501.2450, L501.5200, L503.6005, L100.0100 ####[facility] [address] [place], [address] MCV (RBC) [Entitic vol] 104.2 fL High 81-99 [facility] Comment on above: Performed By: #### L 500.4050, L501.2450, L501.5200, L503.6005, L100.0100 ####[facility] [address] [place], [address] Monocytes/100 WBC (Bld) 8.7 % Normal 0-10 [facility] Comment on above: Performed By: #### L 500.4050, L501.2450, L501.5200, L503.6005, L100.0100 ####[facility] [address] [place], [address] Neutrophils/100 WBC (Bld) 66.9 % Normal 47-70 [facility] Comment on above: Performed By: #### L 500.4050, L501.2450, L501.5200, L503.6005, L100.0100 ####[facility] [address] [place], [address] Nucleated RBC (Bld) [#/Vol] 0 10*3/uL Normal 0-5 [facility] Comment on above: Performed By: #### L 500.4050, L501.2450, L501.5200, L503.6005, L100.0100 ####[facility] [address] [place], [address] Platelet mean volume (Bld) [Entitic vol] 13.2 fL High 6.2-12.0 [facility] Comment on above: Performed By: #### L 500.4050, L501.2450, L501.5200, L503.6005, L100.0100 ####[facility] [address] [place], [address] Platelets (Bld) [#/Vol] 206 10*3/uL Normal 150-450 [facility] Comment on above: Performed By: #### L 500.4050, L501.2450, L501.5200, L503.6005, L100.0100 ####[facility] [address] [place], [address] RBC (Bld) [#/Vol] 2.88 10*6/uL Low 4.2-5.4 [facility] Comment on above: Performed By: #### L 500.4050, L501.2450, L501.5200, L503.6005, L100.0100 ####[facility] [address] [place], [address] RDW SD 58.2 fl High 35.1-43.9 [facility] Comment on above: Performed By: #### L 500.4050, L501.2450, L501.5200, L503.6005, L100.0100 ####[facility] [address] [place], [address] WBC (Bld) [#/Vol] 7.6 10*3/uL Normal 4.4-11.0 [facility] Comment on above: Performed By: #### L 500.4050, L501.2450, L501.5200, L503.6005, L100.0100 ####[facility] [address] [place], [address] CPK Total, Creatine Kinaseon 09-28-2024 CPK TOTAL 27 U/L Normal 24-195 [facility] Comment on above: Performed By: #### L 501.3620 ####[facility] [address] [place], [address] Carbon dioxide, total [Moles /volume] in Central venous bloodOrdered By: Jhonatan Maxwell on 09-28-2024 CO2 [Moles/Vol] 11.0 mmol/L Low 21.0-32.0 [facility] Chloride assayOrdered By: Howard aby Maxwell on 09-28-2024 Chloride [Moles/Vol] 113 mmol/L High 98-108 [facility] Comprehensive Metabolic Prof ilon 09-28-2024 Albumin [Mass/Vol] 3.1 g/dL Low 3.4-4.8 [facility] Comment on above: Performed By: #### L 500.4050, L501.2450, L501.5200, L503.6005, L100.0100 ####[facility] [address] [place], [address] Albumin/Globulin [Mass ratio] 1.1 {ratio} Normal 0.9-2.4 [facility] Comment on above: Performed By: #### L 500.4050, L501.2450, L501.5200, L503.6005, L100.0100 ####[facility] [address] [place], [address] ALK PHOS 130 U/L High 35-104 [facility] Comment on above: Performed By: #### L 500.4050, L501.2450, L501.5200, L503.6005, L100.0100 ####[facility] [address] [place], [address] ALT [Catalytic activity/Vol] 351 U/L High <=34 [facility] Comment on above: Performed By: #### L 500.4050, L501.2450, L501.5200, L503.6005, L100.0100 ####[facility] [address] [place], [address] AST [Catalytic activity/Vol] 289 U/L High <=31 [facility] Comment on above: Performed By: #### L 500.4050, L501.2450, L501.5200, L503.6005, L100.0100 ####[facility] [address] [place], [address] Bilirubin [Mass/Vol] 0.20 mg/dL Normal 0.00-1.30 [facility] Comment on above: Performed By: #### L 500.4050, L501.2450, L501.5200, L503.6005, L100.0100 ####[facility] [address] [place], [address] BUN/CRE 26.7 RATIO High 10-20 [facility] Comment on above: Performed By: #### L 500.4050, L501.2450, L501.5200, L503.6005, L100.0100 ####[facility] [address] [place], [address] Calcium [Mass/Vol] 7.9 mg/dL Normal 7.6-11.0 [facility] Comment on above: Performed By: #### L 500.4050, L501.2450, L501.5200, L503.6005, L100.0100 ####[facility] [address] [place], [address] Chloride [Moles/Vol] 113 mmol/L High 98-108 [facility] Comment on above: Performed By: #### L 500.4050, L501.2450, L501.5200, L503.6005, L100.0100 ####[facility] [address] [place], [address] CO2 [Moles/Vol] 11.0 mmol/L Low 21.0-32.0 [facility] Comment on above: Performed By: #### L 500.4050, L501.2450, L501.5200, L503.6005, L100.0100 ####[facility] [address] [place], [address] Creatinine [Mass/Vol] 4.15 mg/dL High 0.70-1.20 [facility] Comment on above: Performed By: #### L 500.4050, L501.2450, L501.5200, L503.6005, L100.0100 ####[facility] [address] [place], [address] GAP 15 Normal 5-15 [facility] Comment on above: Performed By: #### L 500.4050, L501.2450, L501.5200, L503.6005, L100.0100 ####[facility] [address] [place], [address] GFR/1.73 sq M.predicted among non-blacks MDRD (S/P/Bld) [Vol rate/Area] 10 mL/min/{1.73_m2} Low >60 [facility] Comment on above: Result Comment: mL/m in/1.73m2 CKD-EPI Creatinine Equation (2020) Performed By: #### L 500.4050, L501.2450, L501.5200, L503.6005, L100.0100 ####[facility] [address] [place], [address] Globulin (S) [Mass/Vol] 2.7 g/dL Normal 2.2-4.2 [facility] Comment on above: Performed By: #### L 500.4050, L501.2450, L501.5200, L503.6005, L100.0100 ####[facility] [address] [place], [address] Glucose [Mass/Vol] 129 mg/dL High 70-99 [facility] Comment on above: Performed By: #### L 500.4050, L501.2450, L501.5200, L503.6005, L100.0100 ####[facility] [address] [place], [address] Potassium [Moles/Vol] 6.0 mmol/L Invalid Interpretation Code 3.3-5.1 [facility] Comment on above: Result Comment: Crit ical Result(s) Called at: 184 by: DORYS VU??Results read back by same. Performed By: #### L 500.4050, L501.2450, L501.5200, L503.6005, L100.0100 ####[facility] [address] [place], [address] Sodium [Moles/Vol] 139 mmol/L Normal 133-145 [facility] Comment on above: Performed By: #### L 500.4050, L501.2450, L501.5200, L503.6005, L100.0100 ####[facility] [address] [place], [address] T PROT 5.9 g/dL Normal 5.9-8.4 [facility] Comment on above: Performed By: #### L 500.4050, L501.2450, L501.5200, L503.6005, L100.0100 ####[facility] [address] [place], [address] Urea nitrogen [Mass/Vol] 111 mg/dL Invalid Interpretation Code 4-19 [facility] Comment on above: Result Comment: Crit ical Result(s) Called at: 1843 by:??DORYS VU Results read back by same. Performed By: #### L 500.4050, L501.2450, L501.5200, L503.6005, L100.0100 ####[facility] [address] [place], [address] Creatinine, Urine (random)on 09-28-2024 UR CREAT 34.40 mg/dL Normal 28.00-217. 00 [facility] Comment on above: Performed By: #### L 501.1200, L501.5500 ####[facility] [address] [place], [address] Emergency Department Summary on 09-28-2024 Emergency Department Summary Normal [facility] Eosinophil percentageOrdered By: Jhonatan Maxwell on 09-28-2024 Eosinophils/100 WBC (Bld) 3.6 % 0-5 [facility] Erythrocyte distribution wid th ratioOrdered By: Jhonatan Maxwell on 09-28-2024 Erythrocyte distribution width (RBC) [Ratio] 15.5 % High 11.6-14.6 [facility] Erythrocyte distribution wid th standard deviationOrdered By: Jhonatan Maxwell on 09-28-2024 Erythrocyte distribution width (RBC) [Ratio] 58.2 fl High 35.1-43.9 [facility] Glomerular filtration rate ( GFR) estimation/1.73 sq m using serum, plasma, or whole bOrdered By: Jhonatan Maxwell on 09-28-2024 GFR/1.73 sq M.predicted among non-blacks MDRD (S/P/Bld) [Vol rate/Area] 10 mL/min/{1.73_m2} Low >60 [facility] H AND P Exam - Hospitaliston 09-28-2024 H&P Exam - Hospitalist Normal [facility] Hematocrit Auto (Bld) [Volum e fraction]Ordered By: Jhonatan Maxwell on 09-28-2024 Hematocrit (Bld) [Volume fraction] 30.0 % Low 37-47 [facility] Hemoglobin measurementOrdere d By: Jhonatan Maxwell on 09-28-2024 Hemoglobin (Bld) [Mass/Vol] 9.2 g/dL Low 12.0-15.0 [facility] Immature granulocytes/100 WB C Auto (Bld)Ordered By: Jhonatan Maxwell on 09-28-2024 Immature granulocytes/100 WBC (Bld) 0.400 % 0.0-0.9 [facility] Ketones Test strip Ql (U)Ord ered By: Jhonatan Maxwell on 09-28-2024 Ketones Ql (U) Negative Negative [facility] Kidney and Bladderon 025 Kidney and Bladder Normal [facility] Knee 1 or 2 Viewson 09-29-19 25 Knee 1 or 2 Views Normal [facility] Knee 1 or 2 Views Normal [facility] L499.0042on 09-28-2024 Trop T High Sen Normal <=14 [facility] Comment on above: Result Comment: Erlin jaime via OM: Ordered Performed By: #### L 499.0042 ####[facility] [address] [place], [address] L499.0043on 09-28-2024 Trop T High Sen Normal <=14 [facility] Comment on above: Result Comment: Erlin jaime via OM: Ordered Performed By: #### L 499.0043 ####[facility] [address] [place], [address] L501.4021on 09-28-2024 Trop T High Sen 41 ng/L High <=14 [facility] Comment on above: Performed By: #### L 501.4021 ####[facility] [address] [place], [address] Trop T High Sen 44 ng/L High <=14 [facility] Comment on above: Performed By: #### L 501.4021 ####[facility] [address] [place], [address] Lactic Acidon 09-28-2024 Lactate [Moles/Vol] mmol/L Normal 0.0-2.0 [facility] Comment on above: Order Comment: Y Performed By: #### L 500.4050, L501.2450, L501.5200, L503.6005, L100.0100 ####[facility] [address] [place], [address] Lipaseon 09-28-2024 Lipase [Catalytic activity/Vol] 54 U/L Normal 13-75 [facility] Comment on above: Result Comment: Reinaldo patel note:LIPASE revised reference range effective 22.New Lipase methodology. Expected to produce lower valuesthan the previous assay method.NEW Reference Range: 13 - 75 U/L Performed By: #### L 500.4050, L501.2450, L501.5200, L503.6005, L100.0100 ####[facility] [address] [place], [address] MCV (mean corpuscular volume ) determinationOrdered By: Jhonatan Maxwell on 09-28-2024 MCV (RBC) [Entitic vol] 104.2 fL High 81-99 [facility] Magnesiumon 09-28-2024 Magnesium [Mass/Vol] 3.1 mg/dL High 1.5-2.2 [facility] Comment on above: Performed By: #### L 500.4050, L501.2450, L501.5200, L503.6005, L100.0100 ####[facility] [address] [place], [place], [phone](293) Magnesium measurement (mass/ volume)Ordered By: Jhonatan Maxwell on 09-28-2024 Magnesium (Unsp spec) [Mass/Vol] 3.1 mg/dL High 1.5-2.2 [facility] Mean corpuscular hemoglobin (MCH) determinationOrdered By: Jhonatan Maxwell on 09-28-2024 MCH (RBC) [Entitic mass] 31.9 pg 27.0-32.0 [facility] Monocyte percentageOrdered B y: Jhonatan Maxwell on 09-28-2024 Monocytes/100 WBC (Bld) 8.7 % 0-10 [facility] Mucus LM Ql (Urine sed)Order ed By: Jhonatan Maxwell on 09-28-2024 Mucus Ql (Urine sed) 0 SEEN /hpf [facility] Neutrophil percentageOrdered By: Jhonatan Maxwell on 09-28-2024 Neutrophils/100 WBC (Bld) 66.9 % 47-70 [facility] Nitrite Test strip Ql (U)Ord ered By: Jhonatan Maxwell on 09-28-2024 Nitrite Ql (U) Negative Negative [facility] No Panel InformationOrdered By: Jhonatan Maxwell on 09-28-2024 289 U/L High <32 [facility] Platelet countOrdered By: Howard Maxwell on 09-28-2024 Platelets (Bld) [#/Vol] 206 10*3/uL 150-450 [facility] Potassium measurement (mass/ volume)Ordered By: Jhonatan Maxwell on 09-28-2024 Potassium (Unsp spec) [Mass/Vol] 6.0 mmol/L High 3.3-5.1 [facility] Protein Test strip Ql (U)Ord ered By: Jhonatan Maxwell on 09-28-2024 Protein Ql (U) 15 mg/dl High Negative [facility] RBC Auto (Bld) [#/Vol]Ordere d By: Jhonatan Maxwell on 09-28-2024 RBC (Bld) [#/Vol] 2.88 10*6/uL Low 4.2-5.4 [facility] Random urine creatinine farheen urement (mass/volume)Ordered By: Michelle Gallardo on 09-28-2024 Creatinine Unsp time (U) [Mass/Vol] 34.40 mg/dL 28.00-217. 00 [facility] Serum creatinine measurement (mass/volume)Ordered By: Jhonatan Maxwell on 09-28-2024 Creatinine [Mass/Vol] 4.15 mg/dL High 0.70-1.20 [facility] Serum globulin measurementOr dered By: Jhonatan Maxwell on 09-28-2024 Globulin (S) [Mass/Vol] 2.7 g/dL 2.2-4.2 [facility] Serum glucose measurement (m ass/volume)Ordered By: Jhonatan Maxwell on 09-28-2024 Glucose [Mass/Vol] 129 mg/dL High 70-99 [facility] Serum or plasma alanine huertas otransferase (ALT) measurementOrdered By: Jhonatan Maxwell on 09-28-2024 ALT [Catalytic activity/Vol] 351 U/L High <35 [facility] Serum or plasma albumin farheen urement (mass/volume)Ordered By: Jhonatan Maxwell on 09-28-2024 Albumin [Mass/Vol] 3.1 g/dL Low 3.4-4.8 [facility] Serum or plasma albumin/glob ulin mass ratioOrdered By: Jhonatan Maxwell on 09-28-2024 Albumin/Globulin [Mass ratio] 1.1 {ratio} 0.9-2.4 [facility] Serum or plasma alkaline mariya sphatase measurementOrdered By: Jhonatan Maxwell on 09-28-2024 ALP [Catalytic activity/Vol] 130 U/L High 35-104 [facility] Serum or plasma calcium farheen urement (mass/volume)Ordered By: Jhonatan Maxwell on 09-28-2024 Calcium [Mass/Vol] 7.9 mg/dL 7.6-11.0 [facility] Serum or plasma creatine kin ase activityOrdered By: Laurence Zamora on 09-28-2024 CK [Catalytic activity/Vol] 27 U/L 24-195 [facility] Serum or plasma urea nitroge n measurement (mass/volume)Ordered By: Jhonatan Maxwell on 09-28-2024 Urea nitrogen [Mass/Vol] 111 mg/dL High 4-19 [facility] Sodium levelOrdered By: Deuce Maxwell on 09-28-2024 Sodium [Moles/Vol] 139 mmol/L 133-145 [facility] Squamous epithelial cells de tection in urine sediment by light microscopyOrdered By: Jhonatan Maxwell on 09-28-2024 Epithelial cells.squamous LM Ql (Urine sed) 0-5 SEEN /hpf 5-10 [facility] Total proteinOrdered By: Al Maxwell on 09-28-2024 Protein [Mass/Vol] 5.9 g/dL 5.9-8.4 [facility] Troponin T.cardiac [Mass/vol ume] in Serum or Plasma by High sensitivity methodOrdered By: Michelle Gallardo on 09-28-2024 Troponin T.cardiac High sensitivity method [Mass/Vol] 41 ng/L High <14 [facility] Troponin T.cardiac [Mass/vol ume] in Serum or Plasma by High sensitivity methodOrdered By: Jhonatan Maxwell on 09-28-2024 Troponin T.cardiac High sensitivity method [Mass/Vol] 44 ng/L High <14 [facility] Urinalysis, Completeon 09-28 EPI,SQUAMOUS 0-5 SEEN Normal 5-10 [facility] Comment on above: Order Comment: CLEAN CATCH Performed By: #### L 400.0001 ####[facility] [address] [place], [address] RBC 0-5 SEEN Normal 0-5 [facility] Comment on above: Order Comment: CLEAN CATCH Performed By: #### L 400.0001 ####[facility] [address] [place], [address] BACTERIA 3+ /hpf Normal None Seen [facility] Comment on above: Order Comment: CLEAN CATCH Performed By: #### L 400.0001 ####[facility] [address] [place], [address] WBC >100 SEEN Normal 0-5 [facility] Comment on above: Order Comment: CLEAN CATCH Performed By: #### L 400.0001 ####[facility] [address] [place], [address] Mucus Ql (Urine sed) 0 SEEN Normal [facility] Comment on above: Order Comment: CLEAN CATCH Performed By: #### L 400.0001 ####[facility] [address] [place], [address] Urine Sodiumon 09-28-2024 Sodium (U) [Moles/Vol] 79 mmol/L Normal Not Establ. [facility] Comment on above: Performed By: #### L 501.1200, L501.5500 ####[facility] [address] [place], [address] Urine clarityOrdered By: Al Maxwell on 09-28-2024 Clarity (U) Turbid Clear [facility] Urine color determinationOrd ered By: Jhonatan Maxwell on 09-28-2024 Color (U) Straw Yellow [facility] Urine glucose detectionOrder ed By: Jhonatan Maxwell on 09-28-2024 Glucose Ql (U) Normal mg/dl Normal [facility] Urine leukocyte esterase det ection by dipstickOrdered By: Jhonatan Maxwell on 09-28-2024 Leukocyte esterase Test strip Ql (U) 500 /ul High Negative [facility] Urine pHOrdered By: Jhonatan donahue on 09-28-2024 pH (U) 6.0 [pH] 5.0 - 8.0 [facility] Urine sediment bacteria coun t by microscopy (number/high power field)Ordered By: Jhonatan Maxwell on 09-28-2024 Bacteria LM.HPF (Urine sed) [#/Area] 3 /[HPF] None Seen [facility] Urine sodium measurement (mo les/volume)Ordered By: Michelle Gallardo on 09-28-2024 Sodium (U) [Moles/Vol] 79 mmol/L Not Establ. [facility] Urine specific gravity measu rementOrdered By: Jhonatan Maxwell on 09-28-2024 Specific gravity (U) [Rel density] 1.015 1.002-1.03 0 [facility] Urine urobilinogen measureme ntOrdered By: Jhonatan Maxwell on 09-28-2024 Urobilinogen Ql (U) Normal mg/dl Normal [facility] White blood cell (WBC) count Ordered By: Jhonatan Maxwell on 09-28-2024 WBC (Bld) [#/Vol] 7.6 10*3/uL 4.4-11.0 [facility] White blood cell countOrdere d By: Jhonatan Maxwell on 09-28-2024 White blood cell count >100 SEEN /hpf 0-5 [facility] CNOVon 09-22-2024 CNOV Office Visit (FAMPWS ) MARI LOPEZ ([id number]) 1940 F Date Time Provider Department 09/22/24 2:20 PM LIZY CAPONEPWS During your visit today, we recorded the [...] CONDYLEANDPLATU MEDIALANDLAT COMPARTMENTS 1990 bilateral total knee s(Racine) ARTHRP KNE CONDYLEANDPLATU MEDIALANDLAT COMPARTMENTS 10/24/2004 bilateral [...] reverse total shoulder. Dr. Klaus Omalley with [facility] Family History FAMILY HISTORY Problem [...] daily. T (more content not included)... Normal [facility] CBC panel Auto (Bld)on 09-15 Erythrocyte distribution width (RBC) [Ratio] 15.7 % High 11.5-15.0 [facility] Comment on above: Order Comment: Speci men Type: BLOOD SPECIMENOrdering Facility: [facility] Address: [address] [place] [address] Performed By: #### 5 8410-2 ####[facility] LABIA [id number] [place] [address] [place] Hematocrit (Bld) [Volume fraction] 32.9 % Low 36.0-46.0 [facility] Comment on above: Order Comment: Speci men Type: BLOOD SPECIMENOrdering Facility: [facility] Address: [address] [place] [address] Performed By: #### 5 8410-2 ####[facility] LABIA [id number] [place] [address] [place] Hemoglobin (Bld) [Mass/Vol] 9.9 g/dL Low 11.5-15.5 [facility] Comment on above: Order Comment: Speci men Type: BLOOD SPECIMENOrdering Facility: [facility] Address: [address] [place] [address] Performed By: #### 5 8410-2 ####[facility] [place] LABIA [id number] [place] [address] [place] MCH (RBC) [Entitic mass] 32.0 pg Normal 26.0-34.0 [facility] Comment on above: Order Comment: Speci men Type: BLOOD SPECIMENOrdering Facility: [facility] Address: [address] [place] [address] Performed By: #### 5 8410-2 ####[facility] [place] LABIA [id number] [place] [address] [place] MCHC (RBC) [Mass/Vol] 30.1 g/dL Low 30.5-36.0 [facility] Comment on above: Order Comment: Speci men Type: BLOOD SPECIMENOrdering Facility: [facility] Address: [address] [place] [address] Performed By: #### 5 8410-2 ####[facility] LABIA [id number] [place] [address] [place] MCV (RBC) [Entitic vol] 106.5 fL High 80.0-100.0 [facility] Comment on above: Order Comment: Speci men Type: BLOOD SPECIMENOrdering Facility: [facility] Address: [address] [place] [address] Performed By: #### 5 8410-2 ####[facility] LABIA [id number] [place] [address] [place] Nucleated RBC (Bld) [#/Vol] 10*3/uL Normal <0.01 [facility] Comment on above: Order Comment: Speci men Type: BLOOD SPECIMENOrdering Facility: [facility] Address: [address] [place] [address] Performed By: #### 5 8410-2 ####[facility] [place] LABIA [id number] [place] [address] [place] Platelet mean volume (Bld) [Entitic vol] 13.9 fL High 9.0-12.7 [facility] Comment on above: Order Comment: Speci men Type: BLOOD SPECIMENOrdering Facility: [facility] Address: [address] [place] [address] Performed By: #### 5 8410-2 ####[facility] LABCLIA [id number] [place] [address] [place] Platelets (Bld) [#/Vol] 248 10*3/uL Normal 150-400 [facility] Comment on above: Order Comment: Speci men Type: BLOOD SPECIMENOrdering Facility: [facility] Address: [address] [place] [address] Performed By: #### 5 8410-2 ####[facility] LABCLIA [id number] [place] [address] [place] RBC (Bld) [#/Vol] 3.09 10*6/uL Low 3.90-5.20 [facility] Comment on above: Order Comment: Speci men Type: BLOOD SPECIMENOrdering Facility: [facility] Address: [address] [place] [address] Performed By: #### 5 8410-2 ####[facility] [place] LABCLIA [id number] [place] [address] [place] WBC (Bld) [#/Vol] 7.94 10*3/uL Normal 3.70-11.00 [facility] Comment on above: Order Comment: Speci men Type: BLOOD SPECIMENOrdering Facility: [facility] Address: [address] [place] [address] Performed By: #### 5 8410-2 ####[facility] [place] LABCLIA [id number] [address] [place] CNOVon 09-15-2024 [facility] MARI LOPEZ ([id number]) 1940 F Date Time Provider Department 09/15/24 1:40 PM MICHAEL CARTER FAMPWS During your visit today, we recorded the following information about you: Pulse Blood pressure Weight 72/minute 112/67 105.7 kg Michael Carter APRN.MRI MANAGER 09/15/2024 2:04 PM Signed Chief Complaint Patient [...] CONDYLEANDPLATU MEDIALANDLAT COMPARTMENTS 1990 bilateral total knee s(Racine) ARTHRP KNE CONDYLEANDPLATU MEDIALANDLAT COMPARTMENTS 10/24/2004 bilateral [...] reverse total shoulder. Dr. Klaus Omalley with [facility] Family History FAMILY HISTORY Problem [...] COMPOUNDED PRESCRIPTI (more content not included)... Normal [facility] Comprehensive metabolic 2000 panelon 09-15-2024 Albumin [Mass/Vol] 3.4 g/dL Low 3.9-4.9 [facility] Comment on above: Order Comment: Speci men Type: BLOOD SPECIMENOrdering Facility: [facility] Address: [address] [place], [place] [address] Performed By: #### 2 4323-8, 81974-3 ####[facility] [place] LABCLIA [id number] [address] [address] [place] ALP [Catalytic activity/Vol] 114 U/L Normal 34-123 [facility] Comment on above: Order Comment: Speci men Type: BLOOD SPECIMENOrdering Facility: [facility] Address: [address] [place], [place] [address] Performed By: #### 2 4323-8, 54323-4 ####[facility] LABCLIA [id number] [place] [address] [place] ALT [Catalytic activity/Vol] 75 U/L High 7-38 [facility] Comment on above: Order Comment: Speci men Type: BLOOD SPECIMENOrdering Facility: [facility] Address: [address] [place], [place] [address] Performed By: #### 2 4323-8, 49675-3 ####[facility] [place] LABCLIA [id number] [place] [id number] [place] Anion gap [Moles/Vol] 13 mmol/L Normal 8-15 [facility] Comment on above: Order Comment: Speci men Type: BLOOD SPECIMENOrdering Facility: [facility] Address: [address] [place], [place] [address] Performed By: #### 2 4323-8, 25022-3 ####[facility] [place] LABCLIA [id number] [place] [address] [place] AST [Catalytic activity/Vol] 85 U/L High 13-35 [facility] Comment on above: Order Comment: Speci men Type: BLOOD SPECIMENOrdering Facility: [facility] Address: [address] [place], [place] [address] Performed By: #### 2 4323-8, 68935-3 ####[facility] [place] LABCLIA [id number] [place] [id number] [place] Bilirubin [Mass/Vol] 0.2 mg/dL Normal 0.2-1.3 [facility] Comment on above: Order Comment: Speci men Type: BLOOD SPECIMENOrdering Facility: [facility] Address: [address] [place] [address] Performed By: #### 2 4323-8, 20294-1 ####[facility] [place] LABCLIA [id number] [place] [address] [place] Calcium [Mass/Vol] 8.8 mg/dL Normal 8.5-10.2 [facility] Comment on above: Order Comment: Speci men Type: BLOOD SPECIMENOrdering Facility: [facility] Address: [address] [place] [address] Performed By: #### 2 4323-8, 43621-3 ####[facility] [place] LABCLIA [id number] [place] [id number] [place] Chloride [Moles/Vol] 111 mmol/L High 98-107 [facility] Comment on above: Order Comment: Speci men Type: BLOOD SPECIMENOrdering Facility: [facility] Address: [address] [place] [address] Performed By: #### 2 4323-8, 02816-0 ####[facility] [place] LABCLIA [id number] [facility] [place] [id number] [place] CO2 [Moles/Vol] 18 mmol/L Low 22-30 [facility] Comment on above: Order Comment: Speci men Type: BLOOD SPECIMENOrdering Facility: [facility] Address: [address] [place] [address] Performed By: #### 2 4323-8, 81426-7 ####[facility] LABCLIA [id number] [place] [address] [place] Creatinine [Mass/Vol] 1.93 mg/dL High 0.58-0.96 [facility] Comment on above: Order Comment: Lea monae Type: BLOOD SPECIMENOrdering Facility: [facility] Address: [address] [place] [address] Performed By: #### 2 4323-8, 14088-9 ####[facility] LABIA [id number] [place] [address] [facility] Creatinine and Glomerular filtration rate.predicted panel (S/P/Bld) 26 mL/min/1.73m??? Low >=60 [facility] Comment on above: Order Comment: Lea monae Type: BLOOD SPECIMENOrdering Facility: [facility] Address: [address] [place] [address] Result Comment: Kayy mated Glomerular Filtration Rate [...] actual GFR. Performed By: #### 2 4323-8, 57755-2 ####[facility] LABIA [id number] [place] [id number] [place] Glucose [Mass/Vol] 85 mg/dL Normal 74-99 [facility] Comment on above: Order Comment: Lea monae Type: BLOOD SPECIMENOrdering Facility: [facility] Address: [address] [place] [address] Result Comment: The [employer] Diabetes Association (ADA) provides guidance for cutoff [...] Standards of Medical Care in Diabetes 2016, British Diabetes Association. Diabetes Care. 2016.39(Suppl 1). Performed By: #### 2 4323-8, 03828-7 ####[facility] LABCLIA [id number] [address] [address] [place] Potassium [Moles/Vol] 5.6 mmol/L High 3.7-5.1 [facility] Comment on above: Order Comment: Speci men Type: BLOOD SPECIMENOrdering Facility: [facility] Address: [address] [place] [address] Performed By: #### 2 4323-8, 65934-2 ####[facility] LABCLIA [id number] [address] [address] [place] Protein [Mass/Vol] 6.2 g/dL Low 6.3-8.0 [facility] Comment on above: Order Comment: Speci men Type: BLOOD SPECIMENOrdering Facility: [facility] Address: [address] [place] [address] Performed By: #### 2 4323-8, 61332-1 ####[facility] LABIA [id number] [address] [address] [place] Sodium [Moles/Vol] 142 mmol/L Normal 136-144 [facility] Comment on above: Order Comment: Speci men Type: BLOOD SPECIMENOrdering Facility: [facility] Address: [address] [place] [address] Performed By: #### 2 4323-8, 94940-9 ####[facility] LABCLIA [id number] [address] [address] [place] Urea nitrogen [Mass/Vol] 49 mg/dL High 7-21 [facility] Comment on above: Order Comment: Speci men Type: BLOOD SPECIMENOrdering Facility: [facility] Address: [address] [place] [address] Performed By: #### 2 4323-8, 95899-2 ####[facility] LABIA [id number] [address] [place] [facility]BNP [facility] Natriuretic peptide.B prohormone N-Terminal [Mass/Vol] 783 pg/mL High <450 [facility] Comment on above: Order Comment: Speci men Type: BLOOD SPECIMENOrdering Facility: [facility] Address: [address] [place] [address] Performed By: #### 2 4323-8, 19212-0 ####[facility] LABIA [id number] [address] [place] CNPNon 09-14-2024 CNPN Telephone (FAMPWS) JOHNMARI ([id number]) 1940 F Date Time Provider Department 09/14/24 [facility] During your visit today, we recorded the following information about you: Analia Gracia, KEVIN 09/14/2024 12:59 PM Signed Pt called in [...] appointment times. Pt scheduled with Michael Carter STOPER. Analia Gracia RN Allergies As of Date: 09/14/2024 Noted Allergy Reaction BACTRIM (SULFAMETHOXAZOLE-TRIMETH*0 07/23/2016 4 - Hives Comments: Blisters: head to toe IBUPROFEN 11/08/2015 2 - Rash KEFZOL (CEFAZOLIN SODIUM) 08/09/2018 4 - Hives PEANUT 03/31/2023 10 - Anaphylaxis SULFA (SULFONAMIDE ANTIBIOTICS) 07/23/2016 4 - Hives 16 - Unknown Comments: Blisters: head to toe Date Reviewed: 09/04/2024 Reviewed by: Deacon Valdez APRN.MRI MANAGER - Fully Assessed Reason for Visit: Results [...] [1003] 05/07/2005 07/12/2021 INJURY TRUNK SITE NEC [[id number]] 01/16/2006 07/01/2007 Anemia in chronic kidney disease [...] [M47.816] 12/25/2021 (more content not included)... Normal [facility] CNPNon 09-12-2024 CNPN Telephone (FAMPWS) JOHNMARI ([id number]) 1940 F Date Time Provider Department 09/12/24 LIZY CAPONE [facility] During your visit today, we [...] Date Reviewed: 09/04/2024 Reviewed by: Deacon Valdez, NANCI.MRI MANAGER - Fully Assessed Reason for Visit: Patient Question [1477] Orders [681] Primary Visit Diagnosis:Subacute cough [R05.2] Order(s):XR CHEST 2V FRONTAL/LAT [[id number]] Order #: [id number] FUTURE Prescriptions as of 09/12/2024 - doxycycline [...] [1003] 05/07/2005 07/12/2021 INJURY TRUNK SITE NEC [[id number]] 01/16/2006 07/01/2007 Anemia in chronic kidney disease [...] back pa (more content not included)... Normal [facility] XR CHEST 2V FRONTAL/LATon XR CHEST [...] clips are again noted. IMPRESSION: See result. Medicare Specialist: CHEIKH Transcribe Date/Time: Sep 14 2024 12:53A Dictated by : LIBAN SALCEDO MD This examination was interpreted and the report reviewed and electronically signed by: LIBAN SALCEDO MD on Sep 14 2024 12:55AM EST [id number] Normal [facility] 09-07-2024 MIHIR Telephone (FAMPWS) MARI LOPEZ ([id number]) 1940 F Date Time Provider Department 09/07/24 LIZY CAPONE During your visit today, we recorded the following information about you: Josselin Baxter RN 09/07/2024 1:57 PM Signed Dorys with [facility] calling with pt update for PCP. [...] extend treatment or for any other orders. [phone]. KEVIN Escobar Mark D, MD 09/08/2024 3:55 PM Signed OK for continuation of both medications; Rxs sent to pharmacy MD Samia Masters Amanda, RN 09/08/2024 4:04 PM Signed Dorys with [facility] and Pt called and notified of [...] Date Reviewed: 09/04/2024 Reviewed by: Deacon Valdez APRN.MRI MANAGER - Fully Assessed Reason for Visit: Patient [...] NEC [IMO0 (more content not included)... Normal [facility] H AND P Exam - Surgicalon H&P Exam - Surgical Normal [facility] MR/POSTOP.ANEon 09-06-2024 MR/POSTOP.ANE [facility] MR/PVCLXQWW0bs 09-06-2024 MR/POSTOPAN2 [facility] Operative Reporton Operative Report [facility] CNPNon 09-05-2024 C[facility] MARI LOPEZ ([id number]) 1940 F Date Time Provider Department 09/05/24 [facility] During your visit today, we recorded [...] to stay on will need refilled to [facility]. Asking for this to be done BHUMIKA as she is almost out of medications. MANJEET Reina Mark D, MD 09/05/2024 2:36 PM Signed Med list reviewed and prescriptions sent to [facility]. May stop Eliquis and Protonix MD Ziyad Masters Kathryn, MA 09/05/2024 3:15 PM Signed Pt notified and voiced understanding. MANJEET Reina Sherrie, RN 09/07/2024 1:43 PM Signed Dorys with [facility] calling. Updated of eliquis and pantoprazole [...] Date Reviewed: 09/04/2024 Reviewed by: Deacon Valdez APRN.MRI MANAGER - Fully Assessed Reason for Visit: Medication Question [1478] Primary Visit Diagnosis:Anemia in chronic kidney disease, unspecified CKD stage [N18.9, D63.1] Other Visit Diagnoses:Leg swelling [M79.89] Essential hypertension, benign [I10] Iron deficiency anemia due to chronic blood loss [D50.0] Hypothyroidism, acquired [E03.9] Seizures (HCC) [R56.9] Insomnia, unspecified type [G47.00] CKD (chronic kidney disease) stage 4, GFR 15-29 ml/min (HCC) [N18.4] Hyperlipidemia LDL goal <100 [E78.5] Chronic [...] polyethylene glycol (more content not included)... Normal [facility] Neurology Visit Reporton Neurology Visit Report Normal [facility] CNOVon 09-04-2024 CNOV Office Visit (UCWSTR ) MARI LOPEZ ([id number]) 1940 F Date Time Provider Department 09/04/24 2:30 PM DEACON VALDEZ [facility] During your visit today, we recorded the following information about you: Temperature Pulse Respiration Blood pressure 98.5 degrees 74/minute 18/minute 128/76 Weight 105.7 kg Deacon Valdez APRN.MRI MANAGER 09/04/2024 2:51 PM Signed This note was created using [employer]. Subjective Mari Lopez is a 84 year old female. HPI Patient presents today complaining of some shortness of breath and wheezing which has been ongoing for the last 2 weeks. She denies any fevers. She notes that she was recently discharged from [facility] after having been hospitalized [...] Date Reviewed: 09/04/2024 Reviewed by: Deacon Valdez APRN.MRI MANAGER - Fully Assessed Reason for Visit: Cough [...] by mout (more content not included)... Normal [facility] MR/PAT.ANEon 09-02-2024 MR/PAT.ANE [facility] MR/PAT.[facility] CNPNon 08-30-2024 [facility] MARI LOPEZ ([id number]) 1940 F Date Time Provider Department 08/30/24 LIZY CAPONE [facility] During your visit today, we recorded the following information about you: Lora Najera, RN 08/30/2024 10:39 AM Signed Lora from [facility] calls and reports that patient started with home health services. Lora makes note of a couple different things: Patient is on iron tablets which is contradicted for someone with peanut allergies. Patient has been taking medication with no issues. Patient had discharged from [place] with oxycodone orders of 5 mg every [...] left a detailed voicemail notifying Lora from [facility] of providers message. Clinic phone number [...] [K43.9] 03/26 (more content not included)... Normal [facility] CNPNon 08-25-2024 CNPN Telephone (FAMPWS) JOHNMARI Garrett ([id number]) 1940 F Date Time Provider Department 08/25/24 [facility] During your visit today, we recorded the following information about you: Minna Hinton, RN 08/25/2024 12:31 PM Signed [facility] coordinatior with [facility] calling in to say pt is being discharged from [facility] today. She has been referred to for SN, PT AND OT for lower leg wound care. Okay for Dr. Capone to follow pt. (He just saw pt on 08/22/24) Lizy Capone MD 08/25/2024 2:40 PM Signed Noted; MD Ziyad Cochran Kathryn, MA 08/25/2024 2:42 PM Signed Discharge [...] [1003] 05/07/2005 07/12/2021 INJURY TRUNK SITE NEC [[id number]] 01/16/2006 07/01/2007 Anemia in chronic kidney disease [...] spondylosis [M47 (more content not included)... Normal [facility] CNPN Telephone (FAMPWS) MARI LOPEZ ([id number]) 1940 F Date Time Provider Department 08/25/24 [facility] During your visit today, we recorded the following information about you: Josselin Baxter RN 08/25/2024 9:33 AM Signed Krystle Villarreal CNP a provider at [facility] is calling to state that she [...] [1003] 05/07/2005 07/12/2021 INJURY TRUNK SITE NEC [[id number]] 01/16/2006 07/01/2007 Anemia in chronic kidney disease [...] disease, unspecif*08/22/2024 (more content not included)... Normal [facility] Absolute lymphocyte countOrd ered By: Gustavo Castorena on 08-22-2024 Lymphocytes Auto (Unsp spec) [#/Vol] 1.73 10*3/uL 0.83-4.51 [facility] Anion gap in Serum or Plasma Ordered By: Gustavo Castorena on 08-22-2024 Anion gap [Moles/Vol] 12 mmol/L 5-15 [facility] Automated lymphocyte count a s percentage of total leukocytesOrdered By: Gustavo Castorena on 08-22-2024 Lymphocytes/100 WBC Auto (Unsp spec) 34.5 % 19-41 [facility] BUN/creatinine ratioOrdered By: Gustavo Castorena on 08-22-2024 Urea nitrogen/Creatinine [Mass ratio] 20.6 mg/mg High 10-20 [facility] Bacteria Ur Culton Bacteria identified Cx Nom [...] , Intermediate >32 , Resistant >64 Abnormal [facility] Comment on above: Performed By: #### 2 4356-8, 630-4 ####[facility] LABCLIA [id number] [place] [id number] [place] Basophil percentageOrdered B y: Gustavo Castorena on 08-22-2024 Basophils/100 WBC (Bld) 0.6 % 0-1 [facility] CBC panel Auto (Bld)on 08-22 Erythrocyte distribution width (RBC) [Ratio] 16.4 % High 11.5 - 15.0 % [facility] Hematocrit (Bld) [Volume fraction] 31.1 % Low 36.0 - 46.0 % [facility] Hemoglobin (Bld) [Mass/Vol] 9.4 g/dL Low 11.5 - 15.5 g/dL [facility] Interpretation and review of laboratory results Abnormal [facility] MCH (RBC) [Entitic mass] 31.4 pg 26.0 - 34.0 pg [facility] MCHC (RBC) [Mass/Vol] 30.2 g/dL Low 30.5 - 36.0 g/dL [facility] MCV (RBC) [Entitic vol] 104 fL High 80.0 - 100.0 fL [facility] Nucleated RBC (Bld) [#/Vol] NINF [facility] Platelet mean volume (Bld) [Entitic vol] 13.1 fL High 9.0 - 12.7 fL [facility] Platelets (Bld) [#/Vol] 233 10*3/uL [facility] RBC (Bld) [#/Vol] 2.99 10*6/uL Low 3.90 - 5.20 m/uL [facility] WBC (Bld) [#/Vol] 7.12 10*3/uL [facility] Erythrocyte distribution width (RBC) [Ratio] 16.4 % High 11.5-15.0 [facility] Comment on above: Order Comment: Speci men Type: BLOOD SPECIMENOrdering Facility: [facility] Address: [address] [place] [address] Performed By: #### 5 8410-2 ####[facility] LABCLIA [id number] [address] [facility] Hematocrit (Bld) [Volume fraction] 31.1 % Low 36.0-46.0 [facility] Comment on above: Order Comment: Speci men Type: BLOOD SPECIMENOrdering Facility: [facility] Address: [address] [place] [address] Performed By: #### 5 8410-2 ####[facility] LABIA [id number] [place] [address] [place] Hemoglobin (Bld) [Mass/Vol] 9.4 g/dL Low 11.5-15.5 [facility] Comment on above: Order Comment: Speci men Type: BLOOD SPECIMENOrdering Facility: [facility] Address: [address] [place] [address] Performed By: #### 5 8410-2 ####[facility] LABIA [id number] [place] [address] [place] MCH (RBC) [Entitic mass] 31.4 pg Normal 26.0-34.0 [facility] Comment on above: Order Comment: Speci men Type: BLOOD SPECIMENOrdering Facility: [facility] Address: [address] [place] [address] Performed By: #### 5 8410-2 ####[facility] [id number] [place] [address] [place] MCHC (RBC) [Mass/Vol] 30.2 g/dL Low 30.5-36.0 [facility] Comment on above: Order Comment: Speci men Type: BLOOD SPECIMENOrdering Facility: [facility] Address: [address] [place] [address] Performed By: #### 5 8410-2 ####[facility] [id number] [place] [address] [place] MCV (RBC) [Entitic vol] 104.0 fL High 80.0-100.0 [facility] Comment on above: Order Comment: Speci men Type: BLOOD SPECIMENOrdering Facility: [facility] Address: [address] [place] [address] Performed By: #### 5 8410-2 ####[facility] [id number] [place] [address] [place] Nucleated RBC (Bld) [#/Vol] 10*3/uL Normal <0.01 [facility] Comment on above: Order Comment: Speci men Type: BLOOD SPECIMENOrdering Facility: [facility] Address: [address] [place] [address] Performed By: #### 5 8410-2 ####[facility] LABCLIA [id number] [place] [address] [place] Platelet mean volume (Bld) [Entitic vol] 13.1 fL High 9.0-12.7 [facility] Comment on above: Order Comment: Speci men Type: BLOOD SPECIMENOrdering Facility: [facility] Address: [address] [place] [address] Performed By: #### 5 8410-2 ####[facility] LABCLIA [id number] [place] [address] [place] Platelets (Bld) [#/Vol] 233 10*3/uL Normal 150-400 [facility] Comment on above: Order Comment: Speci men Type: BLOOD SPECIMENOrdering Facility: [facility] Address: [address] [place] [address] Performed By: #### 5 8410-2 ####[facility] LABCLIA [id number] [place] [address] [place] RBC (Bld) [#/Vol] 2.99 10*6/uL Low 3.90-5.20 [facility] Comment on above: Order Comment: Speci men Type: BLOOD SPECIMENOrdering Facility: [facility] Address: [address] [place] [address] Performed By: #### 5 8410-2 ####[facility] LABCLIA [id number] [place] [address] [place] WBC (Bld) [#/Vol] 7.12 10*3/uL Normal 3.70-11.00 [facility] Comment on above: Order Comment: Speci men Type: BLOOD SPECIMENOrdering Facility: [facility] Address: [address] [place] [address] Performed By: #### 5 8410-2 ####[facility] LABCLIA [id number] [place] [address] [place] CNOVon 08-22-2024 CNOV Office Visit (FAMPWS ) MARI LOPEZ ([id number]) 1940 F Date Time Provider Department 08/22/24 1:20 PM [facility] today, we recorded [...] pt was re-admitted back in April into [facility] ICU for sepsis and kidney failure. Pt was intubated while admitted. She was then life flighted to [facility] ICU to see Neurology on 05/04/24 and discharged on 05/18/24 to a Rehab Facility, staying until 06/10/24. Pt was then d/c to [place] [facility]hab on 06/10/24 and has not yet [...] of seizure x 2 during admission at [facility]. Pt notes she had 3 seizures while her flight to [facility]. Is scheduled with [facility] in September. Pt reports today that she is supposed to be on medication for 6 months. Nephro - Follows with Dr. Casper. Hx of CKD. When in the hospital pt had kidney failure. Did not require dialysis. Cardio - Follows with [facility], Dr. Jackson. Hx of heart failure, and PE. Pt takes Eliquis 5 mg bid, ASA 81 mg once daily, Zestoretic 10-12.5 mg once daily, Lasix 40 mg once daily and Toprol XL 50 mg once daily. Pulm - Hx of pulmonary issues. Schedule with [facility], did see [facility]. Anemia - [...] reports an incident that occurred while at [place], where she was trying to get into her car, Therapist did not lock her wheelchair. She hit her right lower leg on the running board of her car causing a hematoma. Following with Dr. Lomax, has had to have area cleaned out a couple of times. Wound Center put in an order for [facility] to change dressing 3x per week. [...] CONDYLEANDPLATU MEDIALANDLAT COMPARTMENTS 1990 bilateral total knee s([place]) ARTHRP KNE CONDYLEANDPLATU MEDIALANDLAT COMPARTMENTS 10/24/2004 bilateral [...] reverse total shoulder. Dr. Klaus Omalley with [facility] Family History FAMILY HISTORY Problem Relation Age of Onset Cancer Mother ovarian Patient Allergies ALLERGIES Allergen Reactions Bactrim [Sulfametho* Hives Blisters: he (more content not included)... Normal [facility] Carbon dioxide, total [Moles /volume] in Central venous bloodOrdered By: Gustavo Castorena on 08-22-2024 CO2 [Moles/Vol] 18.6 mmol/L Low 21.0-32.0 [facility] Chloride assayOrdered By: Felix Castorena on 08-22-2024 Chloride [Moles/Vol] 113 mmol/L High 98-108 [facility] Comprehensive metabolic 2000 panelon 08-22-2024 Albumin [Mass/Vol] 3.5 g/dL Low 3.9-4.9 [facility] Comment on above: Order Comment: Speci men Type: BLOOD SPECIMENOrdering Facility: [facility] Address: [address] [place] [address] Performed By: #### 2 4331-1, 3016-3, 47705-4, 7 ####[facility] LABCLIA [id number] [address] [address] [place] ALP [Catalytic activity/Vol] 87 U/L Normal 34-123 [facility] Comment on above: Order Comment: Speci men Type: BLOOD SPECIMENOrdering Facility: [facility] Address: [address] [place], [place] [address] Performed By: #### 2 4331-1, 3015-3, 18018-9, 3023-10 ####[facility] LABCLIA [id number] [address] [address] [place] ALT [Catalytic activity/Vol] 20 U/L Normal 7-38 [facility] Comment on above: Order Comment: Speci men Type: BLOOD SPECIMENOrdering Facility: [facility] Address: [address] [place] [address] Performed By: #### 2 4331-1, 3015-3, , 7 ####[facility] LABCLIA [id number] [address] [address] [place] Anion gap [Moles/Vol] 12 mmol/L Normal 8-15 [facility] Comment on above: Order Comment: Speci men Type: BLOOD SPECIMENOrdering Facility: [facility] Address: [address] [place] [address] Performed By: #### 2 4331-1, 3015-3, , 3023-10 ####[facility] LABCLIA [id number] [address] [address] [place] AST [Catalytic activity/Vol] 26 U/L Normal 13-35 [facility] Comment on above: Order Comment: Speci men Type: BLOOD SPECIMENOrdering Facility: [facility] Address: [address] [place] [address] Performed By: #### 2 4331-1, 3015-3, 09762-8, 7 ####[facility] LABCLIA [id number] [address] [address] [place] Bilirubin [Mass/Vol] 0.2 mg/dL Normal 0.2-1.3 [facility] Comment on above: Order Comment: Speci men Type: BLOOD SPECIMENOrdering Facility: [facility] Address: [address] [place] [address] Performed By: #### 2 4331-1, 3016-3, 66562-3, 3023-7 ####[facility] LABIA [id number] [address] [address] [place] Calcium [Mass/Vol] 8.7 mg/dL Normal 8.5-10.2 [facility] Comment on above: Order Comment: Speci men Type: BLOOD SPECIMENOrdering Facility: [facility] Address: [address] [place] [address] Performed By: #### 2 4331-1, 3016-3, 14818-8, 7 ####[facility] [id number] [place] [id number] [place] Chloride [Moles/Vol] 113 mmol/L High 98-107 [facility] Comment on above: Order Comment: Speci men Type: BLOOD SPECIMENOrdering Facility: [facility] Address: [address] [place] [address] Performed By: #### 2 4331-1, 3016-3, 57134-7, 7 ####[facility] LABIA [id number] [address] [address] [place] CO2 [Moles/Vol] 17 mmol/L Low 22-30 [facility] Comment on above: Order Comment: Speci men Type: BLOOD SPECIMENOrdering Facility: [facility] Address: [address] [place] [address] Performed By: #### 2 4331-1, 3016-3, 18907-0, 3023-7 ####[facility] LABIA [id number] [address] [address] [place] Creatinine [Mass/Vol] 1.77 mg/dL High 0.58-0.96 [facility] Comment on above: Order Comment: Lea monae Type: BLOOD SPECIMENOrdering Facility: [facility] Address: [address] [place] [address] Performed By: #### 2 4331-1, 3016-3, 34402-7, 7 ####[facility] LABIA [id number] [address] [address] [place] Creatinine and Glomerular filtration rate.predicted panel (S/P/Bld) 28 mL/min/1.73m??? Low >=60 [facility] Comment on above: Order Comment: Lea monae Type: BLOOD SPECIMENOrdering Facility: [facility] Address: [address] [place] [address] Result Comment: Kayy mated Glomerular Filtration Rate [...] GFR. Performed By: #### 2 4331-1, 3016-3, 07641-7, 7 ####[facility] LABIA [id number] [address] [address] [place] Glucose [Mass/Vol] 73 mg/dL Low 74-99 [facility] Comment on above: Order Comment: Lea monae Type: BLOOD SPECIMENOrdering Facility: [facility] Address: [address] [place] [id number] Result Comment: The [employer] Diabetes Association (ADA) provides guidance for cutoff [...] Standards of Medical Care in Diabetes 2016, British Diabetes Association. Diabetes Care. 2016.39(Suppl 1). Performed By: #### 2 4331-1, 6-3, 10659-0, 7 ####[facility] LABIA [id number] [address] [address] [place] Potassium [Moles/Vol] 3.7 mmol/L Normal 3.7-5.1 [facility] Comment on above: Order Comment: Speci men Type: BLOOD SPECIMENOrdering Facility: [facility] Address: [address] [place] [address] Performed By: #### 2 4331-1, 6-3, 95885-6, 7 ####[facility] [id number] [place] [id number] [place] Protein [Mass/Vol] 6.2 g/dL Low 6.3-8.0 [facility] Comment on above: Order Comment: Lea monae Type: BLOOD SPECIMENOrdering Facility: [facility] Address: [address] [place], [place] [address] Performed By: #### 2 4331-1, 3015-3, 93232-6, 7 ####[facility] [id number] [place] [id number] [place] Sodium [Moles/Vol] 142 mmol/L Normal 136-144 [facility] Comment on above: Order Comment: Speci men Type: BLOOD SPECIMENOrdering Facility: [facility] Address: [address] [place], [place] [address] Performed By: #### 2 4331-1, 3015-3, 42309-4, 3024-7 ####[facility] LABCLIA [id number] [place] [address] [place] Urea nitrogen [Mass/Vol] 37 mg/dL High 7-21 [facility] Comment on above: Order Comment: Speci men Type: BLOOD SPECIMENOrdering Facility: [facility] Address: [address] [place] [address] Performed By: #### 2 4331-1, 3016-3, 91355-7, 3024-7 ####[facility] LABCLIA [id number] [place] [address] [place] Eosinophil percentageOrdered By: Gustavo Castorena on 08-22-2024 Eosinophils/100 WBC (Bld) 5.4 % High 0-5 [facility] Erythrocyte distribution wid th ratioOrdered By: Gustavo Castorena on 08-22-2024 Erythrocyte distribution width (RBC) [Ratio] 16.4 % High 11.6-14.6 [facility] Erythrocyte distribution wid th standard deviationOrdered By: Gustavo Castorena on 08-22-2024 Erythrocyte distribution width (RBC) [Ratio] 61.6 fl High 35.1-43.9 [facility] Glomerular filtration rate ( GFR) estimation/1.73 sq m using serum, plasma, or whole bOrdered By: Gustavo Castorena on 08-22-2024 GFR/1.73 sq M.predicted among non-blacks MDRD (S/P/Bld) [Vol rate/Area] 27 mL/min/{1.73_m2} Low >60 [facility] Hematocrit Auto (Bld) [Volum e fraction]Ordered By: Gustavo Castorena on 08-22-2024 Hematocrit (Bld) [Volume fraction] 28.3 % Low 37-47 [facility] Hemoglobin measurementOrdere d By: Gustavo Castorena on 08-22-2024 Hemoglobin (Bld) [Mass/Vol] 8.7 g/dL Low 12.0-15.0 [facility] Immature granulocytes/100 WB C Auto (Bld)Ordered By: Gustavo Castorena on 08-22-2024 Immature granulocytes/100 WBC (Bld) 0.400 % 0.0-0.9 [facility] Lipid 1996 panelon Cholesterol [Mass/Vol] 114 mg/dL Normal <200 [facility] Comment on above: Order Comment: Jesui dov Type: BLOOD SPECIMENOrdering Facility: [facility] Address: [address] [place] [address] Result Comment: <200 mg/dL, Desirable 200-239 mg/dL, Borderline high >239 mg/dL, High Performed By: #### 2 4331-1, 3016-3, 81494-5, 3024-7 ####[facility] LABCLIA [id number] [address] [address] [place] Cholesterol in HDL [Mass/Vol] 37 mg/dL Low >39 [facility] Comment on above: Order Comment: Lea monae Type: BLOOD SPECIMENOrdering Facility: [facility] Address: [address] [place] [address] Result Comment: 40-5 9 mg/dL, Acceptable >59 mg/dL, High: Negative risk factor for coronary heart disease <40 mg/dL, Low: Positive risk factor for coronary heart disease Performed By: #### 2 4331-1, 3016-3, 53063-8, 3024-7 ####[facility] LABCLIA [id number] [address] [address] [place] Cholesterol in LDL [Mass/Vol] 57 mg/dL Normal <100 [facility] Comment on above: Order Comment: Jesutin monae Type: BLOOD SPECIMENOrdering Facility: [facility] Address: [address] [place] [address] Result Comment: <100 mg/dL, Optimal 100-129 mg/dL, Near optimal/above optimal 130-159 mg/dL, Borderline high 160-189 mg/dL, High >189 mg/dL, Very high Secondary prevention optimal LDL Cholesterol levels are recommended to be <70 mg/dL LDL cholesterol is calculated using the Otoole-NIH equation. Performed By: #### 2 4331-1, 3016-3, 35485-0, 3024-7 ####[facility] LABIA [id number] [address] [address] [place] Cholesterol in LDL/Cholesterol in HDL [Mass ratio] 1.54 {ratio} Normal <2.54 [facility] Comment on above: Order Comment: Speci men Type: BLOOD SPECIMENOrdering Facility: [facility] Address: [address] [place] [address] Result Comment: Nazanine toro: 1. National Cholesterol Education Program ATP III Guideline At-A-Glance Quick Desk Reference: National Heart, Lung, and Blood [place]. National Institutes of Health. 2001: NIH Publication No. 01-3305. 2. An International Atherosclerosis Society position paper: global recommendations for the management of dyslipidemia: executive summary, Atherosclerosis. 2014: 232(2):410-413. Performed By: #### 2 4331-1, 3016-3, 16932-5, 3024-7 ####[facility] LABIA [id number] [address] [address] [place] Cholesterol in VLDL [Mass/Vol] 16 mg/dL Normal <30 [facility] Comment on above: Order Comment: Speci men Type: BLOOD SPECIMENOrdering Facility: [facility] Address: [address] [place] [address] Performed By: #### 2 4331-1, 3016-3, 79477-2, 3024-7 ####[facility] LABIA [id number] [address] [address] [place] Cholesterol non HDL [Mass/Vol] 77 mg/dL Normal <130 [facility] Comment on above: Order Comment: Speci men Type: BLOOD SPECIMENOrdering Facility: [facility] Address: [address] [place] [address] Result Comment: <130 mg/dL, Optimal 130-159 mg/dL, Near optimal/above optimal 160-189 mg/dL, Borderline high 190-219 mg/dL, High >219 mg/dL, Very high Secondary prevention optimal non HDL Cholesterol levels are recommended to be <100 mg/dL Performed By: #### 2 4331-1, 6-3, 90229-3, 7 ####[facility] LABCLIA [id number] [facility] [id number] [address] [place] Cholesterol.total/Chol esterol in HDL [Mass ratio] 3.08 {ratio} Normal <5.10 [facility] Comment on above: Order Comment: Speci men Type: BLOOD SPECIMENOrdering Facility: [facility] Address: [address] [place], [place] [address] Performed By: #### 2 4331-1, 3015-3, 38231-8, 3023-10 ####[facility] LABCLIA [id number] [address] [place] [address] [place] FASTING TIME 6 hrs Normal [facility] Comment on above: Order Comment: Speci men Type: BLOOD SPECIMENOrdering Facility: [facility] Address: [address] [place], [place] [address] Performed By: #### 2 4331-1, 3015-3, 76723-7, 3023-10 ####[facility] LABCLIA [id number] [address] [place] [address] [place] Triglyceride [Mass/Vol] 108 mg/dL Normal <150 [facility] Comment on above: Order Comment: Speci men Type: BLOOD SPECIMENOrdering Facility: [facility] Address: [address] [place], [place] [address] Result Comment: <150 mg/dL, Normal 150-199 mg/dL, Borderline high 200-499 mg/dL, High >499 mg/dL, Very high Performed By: #### 2 4331-1, 3015-3, 84632-0, 3023-10 ####[facility] LABCLIA [id number] [facility] [address] [address] [place] MCV (mean corpuscular volume ) determinationOrdered By: Gustavo Castorena on 08-22-2024 MCV (RBC) [Entitic vol] 103.3 fL High 81-99 [facility] Mean corpuscular hemoglobin (MCH) determinationOrdered By: Gustavo Castorena on 08-22-2024 MCH (RBC) [Entitic mass] 31.8 pg 27.0-32.0 [facility] Monocyte percentageOrdered B y: Gustavo Castorena on 08-22-2024 Monocytes/100 WBC (Bld) 7.8 % 0-10 [facility] Neutrophil percentageOrdered By: Gustavo Castorena on 08-22-2024 Neutrophils/100 WBC (Bld) 51.3 % 47-70 [facility] Platelet countOrdered By: Felix Castorena on 08-22-2024 Platelets (Bld) [#/Vol] 193 10*3/uL 150-450 [facility] Potassium measurement (mass/ volume)Ordered By: Felixeugenerubiamaryann Brownleeevelynechela on 08-22-2024 Potassium (Unsp spec) [Mass/Vol] 3.5 mmol/L 3.3-5.1 [facility] RBC Auto (Bld) [#/Vol]Ordere d By: Gustavo Castorena on 08-22-2024 RBC (Bld) [#/Vol] 2.74 10*6/uL Low 4.2-5.4 [facility] Serum creatinine measurement (mass/volume)Ordered By: Felixeugenerubiamaryann Brownleeevelynechela on 08-22-2024 Creatinine [Mass/Vol] 1.86 mg/dL High 0.70-1.20 [facility] Serum glucose measurement (m ass/volume)Ordered By: Felixeugenerubiamaryann Brownleeevelynechela on 08-22-2024 Glucose [Mass/Vol] 79 mg/dL 70-99 [facility] Serum or plasma calcium farheen urement (mass/volume)Ordered By: Gustavo Bradevelynechela on 08-22-2024 Calcium [Mass/Vol] 8.4 mg/dL 7.6-11.0 [facility] Serum or plasma urea nitroge n measurement (mass/volume)Ordered By: Felixeugenerubiamaryann Brownleeevelynechela on 08-22-2024 Urea nitrogen [Mass/Vol] 38 mg/dL High 4-19 [facility] Sodium levelOrdered By: Sharri Castorena on 08-22-2024 Sodium [Moles/Vol] 143 mmol/L 133-145 [facility] T4 Free SerPl-mCncon 025 Free T4 [Mass/Vol] 1.4 ng/dL Normal 0.9-1.7 [facility] Comment on above: Order Comment: Speci men Type: BLOOD SPECIMENOrdering Facility: [facility] Address: [address] [place] [address] Performed By: #### 2 4331-1, 3016-3, 09837-6, 3024-7 ####[facility] [place] LABCLIA [id number] [place] [address] [place] TSH SerPl-aCncon 08-22-2024 TSH Qn 3.360 m[IU]/L Normal 0.270-4.20 0 [facility] Comment on above: Order Comment: Speci men Type: BLOOD SPECIMENOrdering Facility: [facility] Address: [address] [place] [address] Performed By: #### 2 4331-1, 3016-3, 02247-0, 3024-7 ####[facility] [place] LABCLIA [id number] [place] [address] [place] Urinalysis complete panel (U )on 08-22-2024 Bacteria uL uL High - 941 uL [facility] Bilirubin Ql (U) Negative Negative [facility] Clarity (Unsp spec) Clear Clear [facility] Color (U) Yellow Yellow [facility] Epithelial cells LM.HPF (Urine sed) [#/Area] None Seen /HPF [facility] Glucose Test strip (U) [Mass/Vol] Negative Negative [facility] Hemoglobin Ql (U) Negative Negative [facility] Hyaline casts (Urine sed) [#/Area] 1-3 /LPF Abnormal 0 /LPF [facility] Interpretation and review of laboratory results Abnormal [facility] Ketones Ql (U) Negative Negative [facility] Leukocyte esterase Test strip Ql (U) 2+ Abnormal Negative [facility] Nitrite Ql (U) Negative Negative [facility] pH (U) 5.5 [pH] NINF - 8.5 [facility] Protein (U) [Mass/Vol] Negative Negative Cl [facility] RBC LM.HPF (Urine sed) [#/Area] 0-2 /HPF 0-2 /HPF [facility] Specific gravity (U) [Rel density] 1.01 1.005 - 1.030 [facility] Urobilinogen Ql (U) 0.2 EU/dL 0.2-1.0 EU/dL [facility] WBC LM.HPF (Urine sed) [#/Area] 11-20 /HPF Abnormal 0-5 /HPF [facility] This test was develo ped and its performance characteristics determined by [facility]'s [facility] Pathology and Laboratory Medicine [place] ([facility]). It has not been cleared or approved by the FDA. -[facility] is regulated under CLIA as qualified to perform high-complexity testing. This test is used for clinical purposes. It should not be regarded as investigational or for research. [facility] BACTERIA UL >9821 High Negative [facility] Comment on above: Order Comment: Speci men Type: URINE SPECIMENOrdering Facility: [facility] Address: [address] [place] [address] Performed By: #### 2 4356-8, 630-4 ####[facility] [id number] [place] [address] [place] Bilirubin Ql (U) Negative Normal Negative [facility] Comment on above: Order Comment: Speci men Type: URINE SPECIMENOrdering Facility: [facility] Address: [address] [place] [address] Performed By: #### 2 4356-8, 630-4 ####[facility] [id number] [place] [address] [place] Clarity (Unsp spec) Clear Normal Clear [facility] Comment on above: Order Comment: Speci men Type: URINE SPECIMENOrdering Facility: [facility] Address: [address] [place] [address] Performed By: #### 2 4356-8, 630-4 ####[facility] LABCLIA [id number] [address], [place] [address] [place] Color (U) Yellow Normal Yellow [facility] Comment on above: Order Comment: Speci men Type: URINE SPECIMENOrdering Facility: [facility] Address: [address] [place] [address] Performed By: #### 2 4356-8, 630-4 ####[facility] LABCLIA [id number] [address], [place] [address] [place] Epithelial cells LM.HPF (Urine sed) [#/Area] None Seen Normal [facility] Comment on above: Order Comment: Speci men Type: URINE SPECIMENOrdering Facility: [facility] Address: [address] [place] [address] Performed By: #### 2 4356-8, 630-4 ####[facility] [place] LABCLIA [id number] [address], [address] STATES OF [facility] Glucose Test strip (U) [Mass/Vol] Negative Normal Negative [facility] Comment on above: Order Comment: Speci men Type: URINE SPECIMENOrdering Facility: [facility] Address: [address] [place] [address] Performed By: #### 2 4356-8, 630-4 ####[facility] [place] LABCLIA [id number] [address], [place] [address] [place] Hemoglobin Ql (U) Negative Normal Negative [facility] Comment on above: Order Comment: Speci men Type: URINE SPECIMENOrdering Facility: [facility] Address: [address] [place] [address] Performed By: #### 2 4356-8, 630-4 ####[facility] [place] LABCLIA [id number] [address], [facility]95 [place] Hyaline casts (Urine sed) [#/Area] 1-3 /LPF Abnormal 0 /LPF [facility] Comment on above: Order Comment: Speci men Type: URINE SPECIMENOrdering Facility: [facility] Address: [address] [place] [address] Performed By: #### 2 4356-8, 630-4 ####[facility] LABCLIA [id number] [facility] [place] [address] [address] [place] Ketones Ql (U) Negative Normal Negative [facility] Comment on above: Order Comment: Speci men Type: URINE SPECIMENOrdering Facility: [facility] Address: [address] [place] [address] Performed By: #### 2 4356-8, 630-4 ####[facility] LABCLIA [id number] [address], [place] [address] [place] Leukocyte esterase Test strip Ql (U) 2+ Abnormal Negative [facility] Comment on above: Order Comment: Speci men Type: URINE SPECIMENOrdering Facility: [facility] Address: [address] [place] [address] Performed By: #### 2 4356-8, 630-4 ####[facility] LABCLIA [id number] [address], [facility]95 [place] Nitrite Ql (U) Negative Normal Negative [facility] Comment on above: Order Comment: Speci men Type: URINE SPECIMENOrdering Facility: [facility] Address: [address] [place] [address] Performed By: #### 2 4356-8, 630-4 ####[facility] LABCLIA [id number] [address], [facility]95 [place] pH (U) 5.5 [pH] Normal <8.5 [facility] Comment on above: Order Comment: Speci men Type: URINE SPECIMENOrdering Facility: [facility] Address: [address] [place] [address] Performed By: #### 2 4356-8, 630-4 ####[facility] LABCLIA [id number] [place] [address] [place] Protein (U) [Mass/Vol] Negative Normal Negative Cl [facility] Comment on above: Order Comment: Speci men Type: URINE SPECIMENOrdering Facility: [facility] Address: [address] [place] [address] Performed By: #### 2 4356-8, 630-4 ####[facility] LABIA [id number] [place] [address] [place] RBC LM.HPF (Urine sed) [#/Area] 0-2 /HPF Normal 0-2 /HPF [facility] Comment on above: Order Comment: Speci men Type: URINE SPECIMENOrdering Facility: [facility] Address: [address] [place] [address] Performed By: #### 2 4356-8, 630-4 ####[facility] [id number] [place] [address] [place] Specific gravity (U) [Rel density] 1.010 Normal 1.005-1.03 0 [facility] Comment on above: Order Comment: Speci men Type: URINE SPECIMENOrdering Facility: [facility] Address: [address] [place] [address] Performed By: #### 2 4356-8, 630-4 ####[id number] [place] [address] [place] Urobilinogen Ql (U) 0.2 EU/dL Normal 0.2-1.0 EU/dL [facility] Comment on above: Order Comment: Speci men Type: URINE SPECIMENOrdering Facility: [facility] Address: [address] [place] [address] Performed By: #### 2 4356-8, 630-4 ####[facility] LABIA [id number] [place] [address] [place] WBC LM.HPF (Urine sed) [#/Area] 11-20 /HPF Abnormal 0-5 /HPF [facility] Comment on above: Order Comment: Speci men Type: URINE SPECIMENOrdering Facility: [facility] Address: [address] [facility] [address] Performed By: #### 2 4356-8, 630-4 ####[facility] [place] LABCLIA [id number] [facility] [place] [address] [place] White blood cell (WBC) count Ordered By: Gustavo Castorena on 08-22-2024 WBC (Bld) [#/Vol] 5.0 10*3/uL 4.4-11.0 [facility] Absolute lymphocyte countOrd ered By: Gustavo Castorena on 08-18-2024 Lymphocytes Auto (Unsp spec) [#/Vol] 1.57 10*3/uL 0.83-4.51 [facility] Anion gap in Serum or Plasma Ordered By: Gustavo Castorena on 08-18-2024 Anion gap [Moles/Vol] 10 mmol/L 5-15 [facility] Automated lymphocyte count a s percentage of total leukocytesOrdered By: Gustavo Castorena on 08-18-2024 Lymphocytes/100 WBC Auto (Unsp spec) 33.2 % 19-41 [facility] BUN/creatinine ratioOrdered By: Gustavo Castorena on 08-18-2024 Urea nitrogen/Creatinine [Mass ratio] 22.8 mg/mg High 10-20 [facility] Basophil percentageOrdered B y: Gustavo Castorena on 08-18-2024 Basophils/100 WBC (Bld) 1.1 % High 0-1 [facility] Carbon dioxide, total [Moles /volume] in Central venous bloodOrdered By: Gustavo Castorena on 08-18-2024 CO2 [Moles/Vol] 18.3 mmol/L Low 21.0-32.0 [facility] Chloride assayOrdered By: Felix Castorena on 08-18-2024 Chloride [Moles/Vol] 114 mmol/L High 98-108 [facility] Eosinophil percentageOrdered By: Gustavo Castorena on 08-18-2024 Eosinophils/100 WBC (Bld) 4.9 % 0-5 [facility] Erythrocyte distribution wid th ratioOrdered By: Gustavo Castorena on 08-18-2024 Erythrocyte distribution width (RBC) [Ratio] 16.2 % High 11.6-14.6 [facility] Erythrocyte distribution wid th standard deviationOrdered By: osbaldo Castorena on 08-18-2024 Erythrocyte distribution width (RBC) [Ratio] 61.8 fl High 35.1-43.9 [facility] Glomerular filtration rate ( GFR) estimation/1.73 sq m using serum, plasma, or whole bOrdered By: Gustavo Castorena on 08-18-2024 GFR/1.73 sq M.predicted among non-blacks MDRD (S/P/Bld) [Vol rate/Area] 29 mL/min/{1.73_m2} Low >60 [facility] Hematocrit Auto (Bld) [Volum e fraction]Ordered By: Gustavo Castorena on 08-18-2024 Hematocrit (Bld) [Volume fraction] 26.8 % Low 37-47 [facility] Hemoglobin measurementOrdere d By: Gustavo Castorena on 08-18-2024 Hemoglobin (Bld) [Mass/Vol] 8.1 g/dL Low 12.0-15.0 [facility] Immature granulocytes/100 WB C Auto (Bld)Ordered By: Gustavo Castorena 08-18-2024 Immature granulocytes/100 WBC (Bld) 0.200 % 0.0-0.9 [facility] MCV (mean corpuscular volume ) determinationOrdered By: Gustavo Castorena on 08-18-2024 MCV (RBC) [Entitic vol] 103.9 fL High 81-99 [facility] Mean corpuscular hemoglobin (MCH) determinationOrdered By: eugeneclovermaryann Castorena on 08-18-2024 MCH (RBC) [Entitic mass] 31.4 pg 27.0-32.0 [facility] Monocyte percentageOrdered B y: Gustavo Castorena on 08-18-2024 Monocytes/100 WBC (Bld) 8.5 % 0-10 [facility] Neutrophil percentageOrdered By: Gustavo Castorena on 08-18-2024 Neutrophils/100 WBC (Bld) 52.1 % 47-70 [facility] Platelet countOrdered By: Felix Castorena on 08-18-2024 Platelets (Bld) [#/Vol] 194 10*3/uL 150-450 [facility] Potassium measurement (mass/ volume)Ordered By: Gustavo Castorena on 08-18-2024 Potassium (Unsp spec) [Mass/Vol] 3.3 mmol/L 3.3-5.1 [facility] RBC Auto (Bld) [#/Vol]Ordere d By: Gustavo Castorena on 08-18-2024 RBC (Bld) [#/Vol] 2.58 10*6/uL Low 4.2-5.4 [facility] Serum creatinine measurement (mass/volume)Ordered By: Gustavo Castorena on 08-18-2024 Creatinine [Mass/Vol] 1.72 mg/dL High 0.70-1.20 [facility] Serum glucose measurement (m ass/volume)Ordered By: Gustavo Castorena on 08-18-2024 Glucose [Mass/Vol] 78 mg/dL 70-99 [facility] Serum or plasma calcium farheen urement (mass/volume)Ordered By: Gustavo Castorena on 08-18-2024 Calcium [Mass/Vol] 8.2 mg/dL 7.6-11.0 [facility] Serum or plasma urea nitroge n measurement (mass/volume)Ordered By: Gustavo Castorena on 08-18-2024 Urea nitrogen [Mass/Vol] 39 mg/dL High 4-19 [facility] Sodium levelOrdered By: Sharri Castorena on 08-18-2024 Sodium [Moles/Vol] 142 mmol/L 133-145 [facility] White blood cell (WBC) count Ordered By: Gustavo Castorena on 08-18-2024 WBC (Bld) [#/Vol] 4.7 10*3/uL 4.4-11.0 [facility] Absolute lymphocyte countOrd ered By: Gustavo Castorena on 08-16-2024 Lymphocytes Auto (Unsp spec) [#/Vol] 1.62 10*3/uL 0.83-4.51 [facility] Anion gap in Serum or Plasma Ordered By: Gustavo Castorena on 08-16-2024 Anion gap [Moles/Vol] 11 mmol/L 5-15 [facility] Automated lymphocyte count a s percentage of total leukocytesOrdered By: Gustavo Castorena on 08-16-2024 Lymphocytes/100 WBC Auto (Unsp spec) 31.6 % 19-41 [facility] BUN/creatinine ratioOrdered By: Gustavo Castorena on 08-16-2024 Urea nitrogen/Creatinine [Mass ratio] 21.3 mg/mg High 10-20 [facility] Basophil percentageOrdered B y: Gustavo Castorena on 08-16-2024 Basophils/100 WBC (Bld) 0.8 % 0-1 [facility] Carbon dioxide, total [Moles /volume] in Central venous bloodOrdered By: Gustavo Castorena on 08-16-2024 CO2 [Moles/Vol] 18.5 mmol/L Low 21.0-32.0 [facility] Chloride assayOrdered By: Felix Castorena on 08-16-2024 Chloride [Moles/Vol] 113 mmol/L High 98-108 [facility] Eosinophil percentageOrdered By: Gustavo Castorena on 08-16-2024 Eosinophils/100 WBC (Bld) 5.1 % High 0-5 [facility] Erythrocyte distribution wid th ratioOrdered By: Gustavo Castorena on 08-16-2024 Erythrocyte distribution width (RBC) [Ratio] 16.1 % High 11.6-14.6 [facility] Erythrocyte distribution wid th standard deviationOrdered By: Gustavo Castorena on 08-16-2024 Erythrocyte distribution width (RBC) [Ratio] 61.9 fl High 35.1-43.9 [facility] Glomerular filtration rate ( GFR) estimation/1.73 sq m using serum, plasma, or whole bOrdered By: Gustavo Castorena on 05-13-2025 GFR/1.73 sq M.predicted among non-blacks MDRD (S/P/Bld) [Vol rate/Area] 24 mL/min/{1.73_m2} Low >60 [facility] Hematocrit Auto (Bld) [Volum e fraction]Ordered By: Gustavo Castorena on 08-16-2024 Hematocrit (Bld) [Volume fraction] 25.9 % Low 37-47 [facility] Hemoglobin measurementOrdere d By: Gustavo Castorena on 08-16-2024 Hemoglobin (Bld) [Mass/Vol] 7.8 g/dL Low 12.0-15.0 [facility] Immature granulocytes/100 WB C Auto (Bld)Ordered By: Gustavo Castorena on 08-16-2024 Immature granulocytes/100 WBC (Bld) 0.200 % 0.0-0.9 [facility] MCV (mean corpuscular volume ) determinationOrdered By: Gustavo Castorena on 08-16-2024 MCV (RBC) [Entitic vol] 105.3 fL High 81-99 [facility] Mean corpuscular hemoglobin (MCH) determinationOrdered By: osbaldo Castorena on 08-16-2024 MCH (RBC) [Entitic mass] 31.7 pg 27.0-32.0 [facility] Monocyte percentageOrdered B y: Gustavo Castorena on 08-16-2024 Monocytes/100 WBC (Bld) 9.4 % 0-10 [facility] Neutrophil percentageOrdered By: eugeneclovermaryann Castorena on 08-16-2024 Neutrophils/100 WBC (Bld) 52.9 % 47-70 [facility] Platelet countOrdered By: Felix Castorena on 08-16-2024 Platelets (Bld) [#/Vol] 190 10*3/uL 150-450 [facility] Potassium measurement (mass/ volume)Ordered By: Gustavo Castorena on 08-16-2024 Potassium (Unsp spec) [Mass/Vol] 3.6 mmol/L 3.3-5.1 [facility] RBC Auto (Bld) [#/Vol]Ordere d By: Gustavo Castorena on 08-16-2024 RBC (Bld) [#/Vol] 2.46 10*6/uL Low 4.2-5.4 [facility] Serum creatinine measurement (mass/volume)Ordered By: Gustavo Castorena on 08-16-2024 Creatinine [Mass/Vol] 2.04 mg/dL High 0.70-1.20 [facility] Serum glucose measurement (m ass/volume)Ordered By: Gustavo Castorena on 08-16-2024 Glucose [Mass/Vol] 81 mg/dL 70-99 [facility] Serum or plasma calcium farheen urement (mass/volume)Ordered By: Gustavo Castorena on 08-16-2024 Calcium [Mass/Vol] 8.1 mg/dL 7.6-11.0 [facility] Serum or plasma urea nitroge n measurement (mass/volume)Ordered By: Gustavo Castorena on 08-16-2024 Urea nitrogen [Mass/Vol] 43 mg/dL High 4-19 [facility] Sodium levelOrdered By: Sharri rioszulemachela Castorena on 08-16-2024 Sodium [Moles/Vol] 142 mmol/L 133-145 [facility] White blood cell (WBC) count Ordered By: Gustavo Castorena on 08-16-2024 WBC (Bld) [#/Vol] 5.1 10*3/uL 4.4-11.0 [facility] Wound Ctr History AND Physic jonathan 08-15-2024 Wound Ctr History & Physical Normal [facility] Plastic Surgery Visit Report on 08-12-2024 Plastic Surgery Visit Report Normal [facility] Absolute lymphocyte countOrd ered By: Gustavo Castorena on 08-08-2024 Lymphocytes Auto (Unsp spec) [#/Vol] 1.83 10*3/uL 0.83-4.51 [facility] Anion gap in Serum or Plasma Ordered By: Gustavo Castorena on 08-08-2024 Anion gap [Moles/Vol] 10 mmol/L 5-15 [facility] Automated lymphocyte count a s percentage of total leukocytesOrdered By: Gustavo Castorena on 08-08-2024 Lymphocytes/100 WBC Auto (Unsp spec) 37.8 % 19-41 [facility] BUN/creatinine ratioOrdered By: Gustavo Castorena on 08-08-2024 Urea nitrogen/Creatinine [Mass ratio] 18.6 mg/mg 10-20 [facility] Basophil percentageOrdered B y: Gustavo Castorena on 08-08-2024 Basophils/100 WBC (Bld) 1.0 % 0-1 [facility] Carbon dioxide, total [Moles /volume] in Central venous bloodOrdered By: Gustavo Castorena on 08-08-2024 CO2 [Moles/Vol] 21.2 mmol/L 21.0-32.0 [facility] Chloride assayOrdered By: Felix Castorena on 08-08-2024 Chloride [Moles/Vol] 109 mmol/L High 98-108 [facility] Eosinophil percentageOrdered By: osbaldo Castorena on 08-08-2024 Eosinophils/100 WBC (Bld) 6.4 % High 0-5 [facility] Erythrocyte distribution wid th ratioOrdered By: osbaldo Castorena on 08-08-2024 Erythrocyte distribution width (RBC) [Ratio] 16.5 % High 11.6-14.6 [facility] Erythrocyte distribution wid th standard deviationOrdered By: osbaldo Castorena on 08-08-2024 Erythrocyte distribution width (RBC) [Ratio] 61.0 fl High 35.1-43.9 [facility] Glomerular filtration rate ( GFR) estimation/1.73 sq m using serum, plasma, or whole bOrdered By: Gustavo Castorena on 08-08-2024 GFR/1.73 sq M.predicted among non-blacks MDRD (S/P/Bld) [Vol rate/Area] 26 mL/min/{1.73_m2} Low >60 [facility] Hematocrit Auto (Bld) [Volum e fraction]Ordered By: Gustavo Castorena on 08-08-2024 Hematocrit (Bld) [Volume fraction] 26.3 % Low 37-47 [facility] Hemoglobin measurementOrdere d By: Gustavo Castorena 08-08-2024 Hemoglobin (Bld) [Mass/Vol] 8.3 g/dL Low 12.0-15.0 [facility] Immature granulocytes/100 WB C Auto (Bld)Ordered By: Gustavo Castorena on 08-08-2024 Immature granulocytes/100 WBC (Bld) 0.000 % 0.0-0.9 [facility] MCV (mean corpuscular volume ) determinationOrdered By: Gustavo Castorena on 08-08-2024 MCV (RBC) [Entitic vol] 101.5 fL High 81-99 [facility] Mean corpuscular hemoglobin (MCH) determinationOrdered By: Gustavo Castorena on 08-08-2024 MCH (RBC) [Entitic mass] 32.0 pg 27.0-32.0 [facility] Monocyte percentageOrdered B y: Gustavo Castorena on 08-08-2024 Monocytes/100 WBC (Bld) 10.3 % High 0-10 [facility] Neutrophil percentageOrdered By: eugeneclovermaryann Castorena on 08-08-2024 Neutrophils/100 WBC (Bld) 44.5 % Low 47-70 [facility] Platelet countOrdered By: Felix Castorena on 08-08-2024 Platelets (Bld) [#/Vol] 202 10*3/uL 150-450 [facility] Potassium measurement (mass/ volume)Ordered By: Gustavo Castorena on 08-08-2024 Potassium (Unsp spec) [Mass/Vol] 3.4 mmol/L 3.3-5.1 [facility] RBC Auto (Bld) [#/Vol]Ordere d By: Gustavo Castorena on 08-08-2024 RBC (Bld) [#/Vol] 2.59 10*6/uL Low 4.2-5.4 [facility] Serum creatinine measurement (mass/volume)Ordered By: Gustavo Castorena on 08-08-2024 Creatinine [Mass/Vol] 1.90 mg/dL High 0.70-1.20 [facility] Serum glucose measurement (m ass/volume)Ordered By: Gustavo Castorena on 08-08-2024 Glucose [Mass/Vol] 78 mg/dL 70-99 [facility] Serum or plasma calcium farheen urement (mass/volume)Ordered By: Felixosbaldo Castorena on 08-08-2024 Calcium [Mass/Vol] 8.0 mg/dL 7.6-11.0 [facility] Serum or plasma urea nitroge n measurement (mass/volume)Ordered By: Felixeugenerubiamaryann Brownleeevelynechela on 08-08-2024 Urea nitrogen [Mass/Vol] 35 mg/dL High 4-19 [facility] Sodium levelOrdered By: Sharri conrad Bradevelynechela on 08-08-2024 Sodium [Moles/Vol] 140 mmol/L 133-145 [facility] White blood cell (WBC) count Ordered By: Felixeugenerubiamaryann Brownleeevelynechela on 08-08-2024 WBC (Bld) [#/Vol] 4.8 10*3/uL 4.4-11.0 [facility] Absolute lymphocyte countOrd ered By: Felixeugenerubiamaryann Brownleeevelynechela on 08-01-2024 Lymphocytes Auto (Unsp spec) [#/Vol] 1.62 10*3/uL 0.83-4.51 [facility] Anion gap in Serum or Plasma Ordered By: Gustavo Brownleeevelynechela on 08-01-2024 Anion gap [Moles/Vol] 11 mmol/L 5-15 [facility] Automated lymphocyte count a s percentage of total leukocytesOrdered By: Felixeugenerubiamaryann Brownleeevelynechela on 08-01-2024 Lymphocytes/100 WBC Auto (Unsp spec) 36.3 % 19-41 [facility] BUN/creatinine ratioOrdered By: Felixosbaldo Brownleeevelynechela on 08-01-2024 Urea nitrogen/Creatinine [Mass ratio] 15.9 mg/mg 10-20 [facility] Basophil percentageOrdered B y: Guidomaryann Brownleeevelynechela on 08-01-2024 Basophils/100 WBC (Bld) 0.4 % 0-1 [facility] Carbon dioxide, total [Moles /volume] in Central venous bloodOrdered By: Felixeugenerubiamaryann Brownleeevelynechela on 08-01-2024 CO2 [Moles/Vol] 21.1 mmol/L 21.0-32.0 [facility] Chloride assayOrdered By: Felix eugeneanamaria Castorena on 08-01-2024 Chloride [Moles/Vol] 111 mmol/L High 98-108 [facility] Eosinophil percentageOrdered By: Gustavo Castorena on 08-01-2024 Eosinophils/100 WBC (Bld) 6.7 % High 0-5 [facility] Erythrocyte distribution wid th ratioOrdered By: osbaldo Castorena on 08-01-2024 Erythrocyte distribution width (RBC) [Ratio] 16.9 % High 11.6-14.6 [facility] Erythrocyte distribution wid th standard deviationOrdered By: Gustavo Castorena on 08-01-2024 Erythrocyte distribution width (RBC) [Ratio] 63.1 fl High 35.1-43.9 [facility] Glomerular filtration rate ( GFR) estimation/1.73 sq m using serum, plasma, or whole bOrdered By: Gustavo Castorena on 08-01-2024 GFR/1.73 sq M.predicted among non-blacks MDRD (S/P/Bld) [Vol rate/Area] 28 mL/min/{1.73_m2} Low >60 [facility] Hematocrit Auto (Bld) [Volum e fraction]Ordered By: Gustavo Castorena on 08-01-2024 Hematocrit (Bld) [Volume fraction] 27.1 % Low 37-47 [facility] Hemoglobin measurementOrdere d By: Gustavo Castorena on 08-01-2024 Hemoglobin (Bld) [Mass/Vol] 8.5 g/dL Low 12.0-15.0 [facility] Immature granulocytes/100 WB C Auto (Bld)Ordered By: Gustavo Castorena on 08-01-2024 Immature granulocytes/100 WBC (Bld) 0.700 % 0.0-0.9 [facility] MCV (mean corpuscular volume ) determinationOrdered By: Gustavo Castorena 08-01-2024 MCV (RBC) [Entitic vol] 101.1 fL High 81-99 [facility] Mean corpuscular hemoglobin (MCH) determinationOrdered By: eugeneclovermaryann Castorena 08-01-2024 MCH (RBC) [Entitic mass] 31.7 pg 27.0-32.0 [facility] Monocyte percentageOrdered B y: Gustavo Castorena on 08-01-2024 Monocytes/100 WBC (Bld) 9.0 % 0-10 [facility] Neutrophil percentageOrdered By: Gustavo Castorena on 08-01-2024 Neutrophils/100 WBC (Bld) 46.9 % Low 47-70 [facility] Platelet countOrdered By: Felix Castorena on 08-01-2024 Platelets (Bld) [#/Vol] 175 10*3/uL 150-450 [facility] Potassium measurement (mass/ volume)Ordered By: Gustavo Bradevelynechela on 08-01-2024 Potassium (Unsp spec) [Mass/Vol] 3.4 mmol/L 3.3-5.1 [facility] RBC Auto (Bld) [#/Vol]Ordere d By: Gustavo Bradifrah on 08-01-2024 RBC (Bld) [#/Vol] 2.68 10*6/uL Low 4.2-5.4 [facility] Serum creatinine measurement (mass/volume)Ordered By: Gustavo Bradifrah on 08-01-2024 Creatinine [Mass/Vol] 1.80 mg/dL High 0.70-1.20 [facility] Serum glucose measurement (m ass/volume)Ordered By: Gustavo Bradifrah on 08-01-2024 Glucose [Mass/Vol] 80 mg/dL 70-99 [facility] Serum or plasma calcium farheen urement (mass/volume)Ordered By: Gustavo Bradifrah on 08-01-2024 Calcium [Mass/Vol] 8.1 mg/dL 7.6-11.0 [facility] Serum or plasma urea nitroge n measurement (mass/volume)Ordered By: Gustavo Bradevelynechela on 08-01-2024 Urea nitrogen [Mass/Vol] 29 mg/dL High 4-19 [facility] Sodium levelOrdered By: Sharri conrad Bradifrah on 08-01-2024 Sodium [Moles/Vol] 143 mmol/L 133-145 [facility] White blood cell (WBC) count Ordered By: Gustavo Bradifrah on 08-01-2024 WBC (Bld) [#/Vol] 4.5 10*3/uL 4.4-11.0 [facility] Emergency Department Summary on 07-29-2024 Emergency Department Summary Normal [facility] Tibia Fibula 2 Viewson 07-29 Tibia Fibula 2 Views Normal [facility] Absolute lymphocyte countOrd ered By: Gustavo Castorena on 07-25-2024 Lymphocytes Auto (Unsp spec) [#/Vol] 1.75 10*3/uL 0.83-4.51 [facility] Absolute neutrophil countOrd ered By: Gustavo Castorena on 07-25-2024 Absolute neutrophil count 2.1 X10^3/uL 2.0-7.7 [facility] Anion gap [Moles/Vol]Ordered By: Gustavo Castorena on 07-25-2024 Anion gap in Serum or Plasma 9 - [facility] Anion gap in Serum or Plasma Ordered By: Gustavo Castorena on 07-25-2024 Anion gap [Moles/Vol] 9 mmol/L 08-18 [facility] Automated lymphocyte count a s percentage of total leukocytesOrdered By: Gustavo Castorena on 07-25-2024 Lymphocytes/100 WBC Auto (Unsp spec) 38.2 % 19-41 [facility] BUN/creatinine ratioOrdered By: Gustavo Castorena on 07-25-2024 Urea nitrogen/Creatinine [Mass ratio] 20.2 mg/mg High 10-20 [facility] BUN/creatinine ratio 20.2 RATIO High 10-20 [facility] Basophil percentageOrdered B y: Gustavo Castorena on 07-25-2024 Basophils/100 WBC (Bld) 1.1 % High 0-1 [facility] Basophil percentage 1.1 % High 0-1 [facility] Calcium [Mass/Vol]Ordered By : Gustavo Castorena on 07-25-2024 Serum or plasma calcium measurement (mass/volume) 7.9 mg/dL 7.6-11.0 [facility] Carbon dioxide, total [Moles /volume] in Central venous bloodOrdered By: Gustavo Castorena on 07-25-2024 CO2 [Moles/Vol] 19.9 mmol/L Low 21.0-32.0 [facility] Carbon dioxide, total [Moles/volume] in Central venous blood 19.9 mmol/L Low 21.0-32.0 [facility] Chloride assayOrdered By: Felix Castorena on 07-25-2024 Chloride [Moles/Vol] 115 mmol/L High 98-108 [facility] Chloride assay 115 mmol/L High 98-108 [facility] Creatinine [Mass/Vol]Ordered By: Gustavo Castorena on 07-25-2024 Serum creatinine measurement (mass/volume) 1.64 mg/dL High 0.70-1.20 [facility] Eosinophil percentageOrdered By: Gustavo Castorena on 07-25-2024 Eosinophils/100 WBC (Bld) 7.0 % High 0-5 [facility] Eosinophil percentage 7.0 % High 0-5 [facility] Erythrocyte distribution wid th (RBC) [Ratio]Ordered By: Gustavo Castorena on 07-25-2024 Erythrocyte distribution width ratio 16.9 % High 11.6-14.6 [facility] Erythrocyte distribution width standard deviation 62.4 fl High 35.1-43.9 [facility] Erythrocyte distribution wid th ratioOrdered By: Gustavo Castorena on 07-25-2024 Erythrocyte distribution width (RBC) [Ratio] 16.9 % High 11.6-14.6 [facility] Erythrocyte distribution wid th standard deviationOrdered By: Gustavo Castorena on 07-25-2024 Erythrocyte distribution width (RBC) [Ratio] 62.4 fl High 35.1-43.9 [facility] GFR/1.73 sq M.predicted kayden g non-blacks MDRD (S/P/Bld) [Vol rate/Area]Ordered By: Gustavo Castorena on 07-25-2024 Glomerular filtration rate (GFR) estimation/1.73 sq m using serum, plasma, or whole b 31 Low >60 [facility] Glomerular filtration rate ( GFR) estimation/1.73 sq m using serum, plasma, or whole bOrdered By: Gustavo Castorena on 07-25-2024 GFR/1.73 sq M.predicted among non-blacks MDRD (S/P/Bld) [Vol rate/Area] 31 mL/min/{1.73_m2} Low >60 [facility] Glucose [Mass/Vol]Ordered By : Gustavo Castorena on 07-25-2024 Serum glucose measurement (mass/volume) 79 mg/dL 70-99 [facility] Hematocrit Auto (Bld) [Volum e fraction]Ordered By: Gustavo Castorena on 07-25-2024 Hematocrit (Bld) [Volume fraction] 27.6 % Low 37-47 [facility] Automated blood hematocrit (percentage) 27.6 % Low 37-47 [facility] Hemoglobin measurementOrdere d By: Gustavo Castorena on 07-25-2024 Hemoglobin (Bld) [Mass/Vol] 8.7 g/dL Low 12.0-15.0 [facility] Hemoglobin measurement 8.7 g/dL Low 12.0-15.0 [facility] Immature granulocytes/100 WB C Auto (Bld)Ordered By: Gustavo Castorena on 07-25-2024 Immature granulocytes/100 WBC (Bld) 0.000 % 0.0-0.9 [facility] Automated immature granulocyte percentage 0.000 % 0.0-0.9 [facility] Lymphocytes Auto (Unsp spec) [#/Vol]Ordered By: Gustavo Castorena on 07-25-2024 Absolute lymphocyte count 1.75 X10^3/uL 0.83-4.51 [facility] Lymphocytes/100 WBC Auto (Un sp spec)Ordered By: Gustavo Castorena on 07-25-2024 Automated lymphocyte count as percentage of total leukocytes 38.2 % 19-41 [facility] MCV (RBC) [Entitic vol]Order ed By: Gustavo Castorena on 07-25-2024 MCV (mean corpuscular volume) determination 100.7 fL High 81-99 [facility] MCV (mean corpuscular volume ) determinationOrdered By: Gustavo Castorena on 07-25-2024 MCV (RBC) [Entitic vol] 100.7 fL High 81-99 [facility] Mean corpuscular hemoglobin (MCH) determinationOrdered By: Gustavo Castorena on 07-25-2024 MCH (RBC) [Entitic mass] 31.8 pg 27.0-32.0 [facility] Mean corpuscular hemoglobin (MCH) determination 31.8 pg 27.0-32.0 [facility] Mean corpuscular hemoglobin concentration (MCHC) determinationOrdered By: Gustavo Castorena on 07-25-2024 Mean corpuscular hemoglobin concentration (MCHC) determination 31.5 g/dL Low 32-36 [facility] Mean platelet volume determi nationOrdered By: Gustavo Castorena on 07-25-2024 Mean platelet volume determination 12.5 fl High 6.2-12.0 [facility] Monocyte percentageOrdered B y: Gustavo Castorena on 07-25-2024 Monocytes/100 WBC (Bld) 8.7 % 0-10 [facility] Monocyte percentage 8.7 % 0-10 [facility] Neutrophil percentageOrdered By: Gustavo Castorena on 07-25-2024 Neutrophils/100 WBC (Bld) 45.0 % Low 47-70 [facility] Neutrophil percentage 45.0 % Low 47-70 [facility] Nucleated red blood cell per centageOrdered By: Gustavo Castorena on 07-25-2024 Nucleated red blood cell percentage 0 % 0-5 [facility] Platelet countOrdered By: Felix Castorena on 07-25-2024 Platelets (Bld) [#/Vol] 200 10*3/uL 150-450 [facility] Platelet count 200 K/mm3 150-450 [facility] Potassium (Unsp spec) [Mass/ Vol]Ordered By: Gustavo Castorena on 07-25-2024 Potassium measurement (mass/volume) 3.3 mmol/L 3.3-5.1 [facility] Potassium measurement (mass/ volume)Ordered By: Gustavo Castorena on 07-25-2024 Potassium (Unsp spec) [Mass/Vol] 3.3 mmol/L 3.3-5.1 [facility] RBC Auto (Bld) [#/Vol]Ordere d By: Gustavo Castorena on 07-25-2024 RBC (Bld) [#/Vol] 2.74 10*6/uL Low 4.2-5.4 [facility] Automated blood erythrocyte count 2.74 M/mm3 Low 4.2-5.4 [facility] Serum creatinine measurement (mass/volume)Ordered By: Gustavo Castorena on 07-25-2024 Creatinine [Mass/Vol] 1.64 mg/dL High 0.70-1.20 [facility] Serum glucose measurement (m ass/volume)Ordered By: Gustavo Castorena on 07-25-2024 Glucose [Mass/Vol] 79 mg/dL 70-99 [facility] Serum or plasma calcium farheen urement (mass/volume)Ordered By: Gustavo Castorena on 07-25-2024 Calcium [Mass/Vol] 7.9 mg/dL 7.6-11.0 [facility] Serum or plasma urea nitroge n measurement (mass/volume)Ordered By: Gustavo Castorena on 07-25-2024 Urea nitrogen [Mass/Vol] 33 mg/dL High 07-23 [facility] Sodium levelOrdered By: Sharri Castorena on 07-25-2024 Sodium [Moles/Vol] 144 mmol/L 133-145 [facility] Sodium level 144 mmol/L 133-145 [facility] TSH DL <= 0.005 mIU/L QnOrde red By: Gustavo Castorena on 07-25-2024 TSH Qn 1.750 uIU/mL 0.300-4.20 0 [facility] Serum or plasma thyroid stimulating hormone (TSH) measurement by high sensitivity met 1.750 uIU/mL 0.300-4.20 0 [facility] Urea nitrogen [Mass/Vol]Orde red By: Gustavo Castorena on 07-25-2024 Serum or plasma urea nitrogen measurement (mass/volume) 33 mg/dL High 07-23 [facility] White blood cell (WBC) count Ordered By: Gustavo Castorena on 07-25-2024 WBC (Bld) [#/Vol] 4.6 10*3/uL 4.4-11.0 [facility] White blood cell (WBC) count 4.6 K/mm3 4.4-11.0 [facility] Absolute lymphocyte countOrd ered By: Gustavo Castorena on 07-18-2024 Lymphocytes Auto (Unsp spec) [#/Vol] 1.66 10*3/uL 0.83-4.51 [facility] Absolute neutrophil countOrd ered By: Gustavo Castorena on 07-18-2024 Absolute neutrophil count 2.3 X10^3/uL 2.0-7.7 [facility] Anion gap [Moles/Vol]Ordered By: Gustaov Castorena on 07-18-2024 Anion gap in Serum or Plasma 11 5-15 [facility] Anion gap in Serum or Plasma Ordered By: Gustavo Castorena on 07-18-2024 Anion gap [Moles/Vol] 11 mmol/L - [facility] Automated lymphocyte count a s percentage of total leukocytesOrdered By: Gustavo Castorena on 07-18-2024 Lymphocytes/100 WBC Auto (Unsp spec) 35.5 % 19-41 [facility] BUN/creatinine ratioOrdered By: Gustavo Castorena on 07-18-2024 Urea nitrogen/Creatinine [Mass ratio] 20.8 mg/mg High 10-20 [facility] BUN/creatinine ratio 20.8 RATIO High 10-20 [facility] Basophil percentageOrdered B y: Gustavo Castorena on 07-18-2024 Basophils/100 WBC (Bld) 0.9 % 0-1 [facility] Basophil percentage 0.9 % 0-1 [facility] Calcium [Mass/Vol]Ordered By : Gustavo Castorena on 07-18-2024 Serum or plasma calcium measurement (mass/volume) 8.2 mg/dL 7.6-11.0 [facility] Carbon dioxide, total [Moles /volume] in Central venous bloodOrdered By: Gustavo Castorena on 07-18-2024 CO2 [Moles/Vol] 20.2 mmol/L Low 21.0-32.0 [facility] Carbon dioxide, total [Moles/volume] in Central venous blood 20.2 mmol/L Low 21.0-32.0 [facility] Chloride assayOrdered By: Felix Castorena on 07-18-2024 Chloride [Moles/Vol] 113 mmol/L High 98-108 [facility] Chloride assay 113 mmol/L High 98-108 [facility] Creatinine [Mass/Vol]Ordered By: Gustavo Castorena on 07-18-2024 Serum creatinine measurement (mass/volume) 1.54 mg/dL High 0.70-1.20 [facility] Eosinophil percentageOrdered By: Gustavo Castorena on 07-18-2024 Eosinophils/100 WBC (Bld) 7.1 % High 0-5 [facility] Eosinophil percentage 7.1 % High 0-5 [facility] Erythrocyte distribution wid th (RBC) [Ratio]Ordered By: Gustavo Castorena on 07-18-2024 Erythrocyte distribution width ratio 16.6 % High 11.6-14.6 [facility] Erythrocyte distribution width standard deviation 61.6 fl High 35.1-43.9 [facility] Erythrocyte distribution wid th ratioOrdered By: Gustavo Castorena on 07-18-2024 Erythrocyte distribution width (RBC) [Ratio] 16.6 % High 11.6-14.6 [facility] Erythrocyte distribution wid th standard deviationOrdered By: Gustavo Castorena on 07-18-2024 Erythrocyte distribution width (RBC) [Ratio] 61.6 fl High 35.1-43.9 [facility] GFR/1.73 sq M.predicted kayden g non-blacks MDRD (S/P/Bld) [Vol rate/Area]Ordered By: Gustavo Castorena on 07-18-2024 Glomerular filtration rate (GFR) estimation/1.73 sq m using serum, plasma, or whole b 34 Low >60 [facility] Glomerular filtration rate ( GFR) estimation/1.73 sq m using serum, plasma, or whole bOrdered By: Gustavo Castorena on 07-18-2024 GFR/1.73 sq M.predicted among non-blacks MDRD (S/P/Bld) [Vol rate/Area] 34 mL/min/{1.73_m2} Low >60 [facility] Glucose [Mass/Vol]Ordered By : Gustavo Castorena on 07-18-2024 Serum glucose measurement (mass/volume) 79 mg/dL 70-99 [facility] Hematocrit Auto (Bld) [Volum e fraction]Ordered By: Gustavo Castorena on 07-18-2024 Hematocrit (Bld) [Volume fraction] 31.1 % Low 37-47 [facility] Automated blood hematocrit (percentage) 31.1 % Low 37-47 [facility] Hemoglobin measurementOrdere d By: Gustavo Castorena on 07-18-2024 Hemoglobin (Bld) [Mass/Vol] 9.6 g/dL Low 12.0-15.0 [facility] Hemoglobin measurement 9.6 g/dL Low 12.0-15.0 [facility] Immature granulocytes/100 WB C Auto (Bld)Ordered By: Gustavo Castorena on 07-18-2024 Immature granulocytes/100 WBC (Bld) 0.200 % 0.0-0.9 [facility] Automated immature granulocyte percentage 0.200 % 0.0-0.9 [facility] Lymphocytes Auto (Unsp spec) [#/Vol]Ordered By: Gustavo Castorena on 07-18-2024 Absolute lymphocyte count 1.66 X10^3/uL 0.83-4.51 [facility] Lymphocytes/100 WBC Auto (Un sp spec)Ordered By: Gustavo Castorena on 07-18-2024 Automated lymphocyte count as percentage of total leukocytes 35.5 % 19-41 [facility] MCV (RBC) [Entitic vol]Order ed By: Gustavo Castorena on 07-18-2024 MCV (mean corpuscular volume) determination 101.3 fL High 81-99 [facility] MCV (mean corpuscular volume ) determinationOrdered By: Gustavo Castorena on 07-18-2024 MCV (RBC) [Entitic vol] 101.3 fL High 81-99 [facility] Mean corpuscular hemoglobin (MCH) determinationOrdered By: Gustavo Castorena on 07-18-2024 MCH (RBC) [Entitic mass] 31.3 pg 27.0-32.0 [facility] Mean corpuscular hemoglobin (MCH) determination 31.3 pg 27.0-32.0 [facility] Mean corpuscular hemoglobin concentration (MCHC) determinationOrdered By: Gustavo Castorena on 07-18-2024 Mean corpuscular hemoglobin concentration (MCHC) determination 30.9 g/dL Low 32-36 [facility] Mean platelet volume determi nationOrdered By: Gustavo Castorena on 07-18-2024 Mean platelet volume determination 12.6 fl High 6.2-12.0 [facility] Monocyte percentageOrdered B y: Gustavo Castorena on 07-18-2024 Monocytes/100 WBC (Bld) 6.4 % 0-10 [facility] Monocyte percentage 6.4 % 0-10 [facility] Neutrophil percentageOrdered By: Gustavo Castorena on 07-18-2024 Neutrophils/100 WBC (Bld) 49.9 % 47-70 [facility] Neutrophil percentage 49.9 % 47-70 [facility] Nucleated red blood cell per centageOrdered By: Gustavo Castorena on 07-18-2024 Nucleated red blood cell percentage 0 % 0-5 [facility] Platelet countOrdered By: Felix Castorena on 07-18-2024 Platelets (Bld) [#/Vol] 229 10*3/uL 150-450 [facility] Platelet count 229 K/mm3 150-450 [facility] Potassium (Unsp spec) [Mass/ Vol]Ordered By: Gustavo Castorena on 07-18-2024 Potassium measurement (mass/volume) 3.2 mmol/L Low 3.3-5.1 [facility] Potassium measurement (mass/ volume)Ordered By: Gustavo Castorena on 07-18-2024 Potassium (Unsp spec) [Mass/Vol] 3.2 mmol/L Low 3.3-5.1 [facility] RBC Auto (Bld) [#/Vol]Ordere d By: Gustavo Castorena on 07-18-2024 RBC (Bld) [#/Vol] 3.07 10*6/uL Low 4.2-5.4 [facility] Automated blood erythrocyte count 3.07 M/mm3 Low 4.2-5.4 [facility] Serum creatinine measurement (mass/volume)Ordered By: Gustavo Castorena on 07-18-2024 Creatinine [Mass/Vol] 1.54 mg/dL High 0.70-1.20 [facility] Serum glucose measurement (m ass/volume)Ordered By: Gustavo Castorena on 07-18-2024 Glucose [Mass/Vol] 79 mg/dL 70-99 [facility] Serum or plasma calcium farheen urement (mass/volume)Ordered By: Gustavo Castorena on 07-18-2024 Calcium [Mass/Vol] 8.2 mg/dL 7.6-11.0 [facility] Serum or plasma urea nitroge n measurement (mass/volume)Ordered By: Gustavo Castorena on 07-18-2024 Urea nitrogen [Mass/Vol] 32 mg/dL High -19 [facility] Sodium levelOrdered By: Sharri Castorena on 07-18-2024 Sodium [Moles/Vol] 144 mmol/L 133-145 [facility] Sodium level 144 mmol/L 133-145 [facility] Urea nitrogen [Mass/Vol]Orde red By: Gustavo Castorena on 07-18-2024 Serum or plasma urea nitrogen measurement (mass/volume) 32 mg/dL High 4-19 [facility] White blood cell (WBC) count Ordered By: Gustavo Castorena on 07-18-2024 WBC (Bld) [#/Vol] 4.7 10*3/uL 4.4-11.0 [facility] White blood cell (WBC) count 4.7 K/mm3 4.4-11.0 [facility] Absolute lymphocyte countOrd ered By: Gustavo Castorena on 07-11-2024 Lymphocytes Auto (Unsp spec) [#/Vol] 1.36 10*3/uL 0.83-4.51 [facility] Absolute neutrophil countOrd ered By: Gustavo Castorena on 07-11-2024 Absolute neutrophil count 1.2 X10^3/uL Low 2.0-7.7 [facility] Anion gap [Moles/Vol]Ordered By: Gustavo Castorena on 07-11-2024 Anion gap in Serum or Plasma 11 5-15 [facility] Anion gap in Serum or Plasma Ordered By: Gustavo Castorena on 07-11-2024 Anion gap [Moles/Vol] 11 mmol/L 5-15 [facility] Automated lymphocyte count a s percentage of total leukocytesOrdered By: Gustavo Castorena on 07-11-2024 Lymphocytes/100 WBC Auto (Unsp spec) 43.9 % High 19-41 [facility] BUN/creatinine ratioOrdered By: Gustavo Castorena on 07-11-2024 Urea nitrogen/Creatinine [Mass ratio] 17.0 mg/mg 10-20 [facility] BUN/creatinine ratio 17.0 RATIO 10-20 [facility] Basophil percentageOrdered B y: Gustavo Castorena on 07-11-2024 Basophils/100 WBC (Bld) 1.0 % 0-1 [facility] Basophil percentage 1.0 % 0-1 [facility] Calcium [Mass/Vol]Ordered By : Gustavo Castorena on 07-11-2024 Serum or plasma calcium measurement (mass/volume) 8.0 mg/dL 7.6-11.0 [facility] Carbon dioxide, total [Moles /volume] in Central venous bloodOrdered By: Gustavo Castorena on 07-11-2024 CO2 [Moles/Vol] 19.1 mmol/L Low 21.0-32.0 [facility] Carbon dioxide, total [Moles/volume] in Central venous blood 19.1 mmol/L Low 21.0-32.0 [facility] Chloride assayOrdered By: Felix Castorena on 07-11-2024 Chloride [Moles/Vol] 112 mmol/L High 98-108 [facility] Chloride assay 112 mmol/L High 98-108 [facility] Creatinine [Mass/Vol]Ordered By: Gustavo Castorena on 07-11-2024 Serum creatinine measurement (mass/volume) 1.55 mg/dL High 0.70-1.20 [facility] Eosinophil percentageOrdered By: Gustavo Castorena on 07-11-2024 Eosinophils/100 WBC (Bld) 10.0 % High 0-5 [facility] Eosinophil percentage 10.0 % High 0-[address] [facility] Erythrocyte distribution wid th (RBC) [Ratio]Ordered By: Gustavo Castorena on 07-11-2024 Erythrocyte distribution width ratio 16.9 % High 11.6-14.6 [facility] Erythrocyte distribution width standard deviation 64.1 fl High 35.1-43.9 [facility] Erythrocyte distribution wid th ratioOrdered By: Gustavo Catsorena on 07-11-2024 Erythrocyte distribution width (RBC) [Ratio] 16.9 % High 11.6-14.6 [facility] Erythrocyte distribution wid th standard deviationOrdered By: Gustavo Castorena on 07-11-2024 Erythrocyte distribution width (RBC) [Ratio] 64.1 fl High 35.1-43.9 [facility] GFR/1.73 sq M.predicted kayden g non-blacks MDRD (S/P/Bld) [Vol rate/Area]Ordered By: Gustavo Castorena on 07-11-2024 Glomerular filtration rate (GFR) estimation/1.73 sq m using serum, plasma, or whole b 33 Low >60 [facility] Glomerular filtration rate ( GFR) estimation/1.73 sq m using serum, plasma, or whole bOrdered By: Gustavo Castorena on 07-11-2024 GFR/1.73 sq M.predicted among non-blacks MDRD (S/P/Bld) [Vol rate/Area] 33 mL/min/{1.73_m2} Low >60 [facility] Glucose [Mass/Vol]Ordered By : Gustavo Castorena on 07-11-2024 Serum glucose measurement (mass/volume) 74 mg/dL 70-99 [facility] Hematocrit Auto (Bld) [Volum e fraction]Ordered By: Gustavo Castorena on 07-11-2024 Hematocrit (Bld) [Volume fraction] 30.2 % Low 37-47 [facility] Automated blood hematocrit (percentage) 30.2 % Low 37-47 [facility] Hemoglobin measurementOrdere d By: Gustavo Castorena on 07-11-2024 Hemoglobin (Bld) [Mass/Vol] 9.2 g/dL Low 12.0-15.0 [facility] Hemoglobin measurement 9.2 g/dL Low 12.0-15.0 [facility] Immature granulocytes/100 WB C Auto (Bld)Ordered By: Gustavo Castorena on 07-11-2024 Immature granulocytes/100 WBC (Bld) 0.000 % 0.0-0.9 [facility] Automated immature granulocyte percentage 0.000 % 0.0-0.9 [facility] Lymphocytes Auto (Unsp spec) [#/Vol]Ordered By: Gustavo Castorena on 07-11-2024 Absolute lymphocyte count 1.36 X10^3/uL 0.83-4.51 [facility] Lymphocytes/100 WBC Auto (Un sp spec)Ordered By: Gustavo Castorena on 07-11-2024 Automated lymphocyte count as percentage of total leukocytes 43.9 % High 19-41 [facility] MCV (RBC) [Entitic vol]Order ed By: Gustavo Castorena on 07-11-2024 MCV (mean corpuscular volume) determination 102.4 fL High 81-99 [facility] MCV (mean corpuscular volume ) determinationOrdered By: Gustavo Castorena on 07-11-2024 MCV (RBC) [Entitic vol] 102.4 fL High 81-99 [facility] Mean corpuscular hemoglobin (MCH) determinationOrdered By: Gustavo Castorena on 07-11-2024 MCH (RBC) [Entitic mass] 31.2 pg 27.0-32.0 [facility] Mean corpuscular hemoglobin (MCH) determination 31.2 pg 27.0-32.0 [facility] Mean corpuscular hemoglobin concentration (MCHC) determinationOrdered By: Gustavo Castorena on 07-11-2024 Mean corpuscular hemoglobin concentration (MCHC) determination 30.5 g/dL Low 32-36 [facility] Mean platelet volume determi nationOrdered By: Gustavo Castorena on 07-11-2024 Mean platelet volume determination 12.8 fl High 6.2-12.0 [facility] Monocyte percentageOrdered B y: Gustavo Castorena on 07-11-2024 Monocytes/100 WBC (Bld) 7.4 % 0-10 [facility] Monocyte percentage 7.4 % 0-10 [facility] Neutrophil percentageOrdered By: Gustavo Castorena on 07-11-2024 Neutrophils/100 WBC (Bld) 37.7 % Low 47-70 [facility] Neutrophil percentage 37.7 % Low 47-70 [facility] Nucleated red blood cell per centageOrdered By: Gustavo Castorena on 07-11-2024 Nucleated red blood cell percentage 0 % 0-5 [facility] Platelet countOrdered By: Felix Castorena on 07-11-2024 Platelets (Bld) [#/Vol] 159 10*3/uL 150-450 [facility] Platelet count 159 K/mm3 150-450 [facility] Potassium (Unsp spec) [Mass/ Vol]Ordered By: Gustavo Castorena on 07-11-2024 Potassium measurement (mass/volume) 3.7 mmol/L 3.3-5.1 [facility] Potassium measurement (mass/ volume)Ordered By: Gustavo Castorena on 07-11-2024 Potassium (Unsp spec) [Mass/Vol] 3.7 mmol/L 3.3-5.1 [facility] RBC Auto (Bld) [#/Vol]Ordere d By: Gustavo Castorena on 07-11-2024 RBC (Bld) [#/Vol] 2.95 10*6/uL Low 4.2-5.4 [facility] Automated blood erythrocyte count 2.95 M/mm3 Low 4.2-5.4 [facility] Serum creatinine measurement (mass/volume)Ordered By: Gustavo Castorena on 07-11-2024 Creatinine [Mass/Vol] 1.55 mg/dL High 0.70-1.20 [facility] Serum glucose measurement (m ass/volume)Ordered By: Gustavo Castorena on 07-11-2024 Glucose [Mass/Vol] 74 mg/dL 70-99 [facility] Serum or plasma calcium farheen urement (mass/volume)Ordered By: Gustavo Castorena on 07-11-2024 Calcium [Mass/Vol] 8.0 mg/dL 7.6-11.0 [facility] Serum or plasma urea nitroge n measurement (mass/volume)Ordered By: Gustavo Castorena on 07-11-2024 Urea nitrogen [Mass/Vol] 26 mg/dL High - [facility] Sodium levelOrdered By: Sharri Castorena on 07-11-2024 Sodium [Moles/Vol] 143 mmol/L 133-145 [facility] Sodium level 143 mmol/L 133-145 [facility] Urea nitrogen [Mass/Vol]Orde red By: Gustavo Castorena on 07-11-2024 Serum or plasma urea nitrogen measurement (mass/volume) 26 mg/dL High - [facility] White blood cell (WBC) count Ordered By: Gustavo Castorena on 07-11-2024 WBC (Bld) [#/Vol] 3.1 10*3/uL Low 4.4-11.0 [facility] White blood cell (WBC) count 3.1 K/mm3 Low 4.4-11.0 [facility] Absolute lymphocyte countOrd ered By: Gustavo Castorena on 07-04-2024 Lymphocytes Auto (Unsp spec) [#/Vol] 1.68 10*3/uL 0.83-4.51 [facility] Absolute neutrophil countOrd ered By: Gustavo Castorena on 07-04-2024 Absolute neutrophil count 2.0 X10^3/uL 2.0-7.7 [facility] Anion gap [Moles/Vol]Ordered By: Gustavo Castorena on 07-04-2024 Anion gap in Serum or Plasma 10 5- [facility] Anion gap in Serum or Plasma Ordered By: Gustavo Castorena on 07-04-2024 Anion gap [Moles/Vol] 10 mmol/L - [facility] Automated lymphocyte count a s percentage of total leukocytesOrdered By: Gustavo Castorena on 07-04-2024 Lymphocytes/100 WBC Auto (Unsp spec) 38.1 % [facility] BUN/creatinine ratioOrdered By: Gustavo Castorena on 07-04-2024 Urea nitrogen/Creatinine [Mass ratio] 17.0 mg/mg - [facility] BUN/creatinine ratio 17.0 RATIO - [facility] Basophil percentageOrdered B y: Gustavo Castorena on 07-04-2024 Basophils/100 WBC (Bld) 1.4 % High 0-1 [facility] Basophil percentage 1.4 % High 0-1 [facility] Calcium [Mass/Vol]Ordered By : Gustavo Castorena on 07-04-2024 Serum or plasma calcium measurement (mass/volume) 8.2 mg/dL 7.6-11.0 [facility] Carbon dioxide, total [Moles /volume] in Central venous bloodOrdered By: Gustavo Castorena on 07-04-2024 CO2 [Moles/Vol] 18.5 mmol/L Low 21.0-32.0 [facility] Carbon dioxide, total [Moles/volume] in Central venous blood 18.5 mmol/L Low 21.0-32.0 [facility] Chloride assayOrdered By: Felix Castorena on 07-04-2024 Chloride [Moles/Vol] 115 mmol/L High 98-108 [facility] Chloride assay 115 mmol/L High 98-108 [facility] Creatinine [Mass/Vol]Ordered By: Gustavo Castorena on 07-04-2024 Serum creatinine measurement (mass/volume) 1.51 mg/dL High 0.70-1.20 [facility] Eosinophil percentageOrdered By: Gustavo Castorena on 07-04-2024 Eosinophils/100 WBC (Bld) 7.5 % High 0-5 [facility] Eosinophil percentage 7.5 % High 0-5 [facility] Erythrocyte distribution wid th (RBC) [Ratio]Ordered By: Gustavo Castorena on 07-04-2024 Erythrocyte distribution width ratio 17.2 % High 11.6-14.6 [facility] Erythrocyte distribution width standard deviation 64.0 fl High 35.1-43.9 [facility] Erythrocyte distribution wid th ratioOrdered By: Gustavo Castorena on 07-04-2024 Erythrocyte distribution width (RBC) [Ratio] 17.2 % High 11.6-14.6 [facility] Erythrocyte distribution wid th standard deviationOrdered By: Gustavo Castorena on 07-04-2024 Erythrocyte distribution width (RBC) [Ratio] 64.0 fl High 35.1-43.9 [facility] GFR/1.73 sq M.predicted kayden g non-blacks MDRD (S/P/Bld) [Vol rate/Area]Ordered By: Gustavo Castorena on 07-04-2024 Glomerular filtration rate (GFR) estimation/1.73 sq m using serum, plasma, or whole b 34 Low >60 [facility] Glomerular filtration rate ( GFR) estimation/1.73 sq m using serum, plasma, or whole bOrdered By: Gustavo Castorena on 07-04-2024 GFR/1.73 sq M.predicted among non-blacks MDRD (S/P/Bld) [Vol rate/Area] 34 mL/min/{1.73_m2} Low >60 [facility] Glucose [Mass/Vol]Ordered By : Gustavo Castorena on 07-04-2024 Serum glucose measurement (mass/volume) 71 mg/dL 70-99 [facility] Hematocrit Auto (Bld) [Volum e fraction]Ordered By: Gustavo Castorena on 07-04-2024 Hematocrit (Bld) [Volume fraction] 29.0 % Low 37-47 [facility] Automated blood hematocrit (percentage) 29.0 % Low 37-47 [facility] Hemoglobin measurementOrdere d By: Gustavo Castorena on 07-04-2024 Hemoglobin (Bld) [Mass/Vol] 8.9 g/dL Low 12.0-15.0 [facility] Hemoglobin measurement 8.9 g/dL Low 12.0-15.0 [facility] Immature granulocytes/100 WB C Auto (Bld)Ordered By: Gustavo Castorena on 07-04-2024 Immature granulocytes/100 WBC (Bld) 0.200 % 0.0-0.9 [facility] Automated immature granulocyte percentage 0.200 % 0.0-0.9 [facility] Lymphocytes Auto (Unsp spec) [#/Vol]Ordered By: Gustavo Castorena on 07-04-2024 Absolute lymphocyte count 1.68 X10^3/uL 0.83-4.51 [facility] Lymphocytes/100 WBC Auto (Un sp spec)Ordered By: Gustavo Castorena on 07-04-2024 Automated lymphocyte count as percentage of total leukocytes 38.1 % 19-41 [facility] MCV (RBC) [Entitic vol]Order ed By: Gustavo Castorena on 07-04-2024 MCV (mean corpuscular volume) determination 102.1 fL High 81-99 [facility] MCV (mean corpuscular volume ) determinationOrdered By: Gustavo Castorena on 07-04-2024 MCV (RBC) [Entitic vol] 102.1 fL High 81-99 [facility] Mean corpuscular hemoglobin (MCH) determinationOrdered By: Gustavo Castorena on 07-04-2024 MCH (RBC) [Entitic mass] 31.3 pg 27.0-32.0 [facility] Mean corpuscular hemoglobin (MCH) determination 31.3 pg 27.0-32.0 [facility] Mean corpuscular hemoglobin concentration (MCHC) determinationOrdered By: Gustavo Castorena on 07-04-2024 Mean corpuscular hemoglobin concentration (MCHC) determination 30.7 g/dL Low 32-36 [facility] Mean platelet volume determi nationOrdered By: Gustavo Castorena on 07-04-2024 Mean platelet volume determination 12.7 fl High 6.2-12.0 [facility] Monocyte percentageOrdered B y: Gustavo Castorena on 07-04-2024 Monocytes/100 WBC (Bld) 7.9 % 0-10 [facility] Monocyte percentage 7.9 % 0-10 [facility] Neutrophil percentageOrdered By: Gustavo Castorena on 07-04-2024 Neutrophils/100 WBC (Bld) 44.9 % Low 47-70 [facility] Neutrophil percentage 44.9 % Low 47-70 [facility] Nucleated red blood cell per centageOrdered By: Gustavo Castorena on 07-04-2024 Nucleated red blood cell percentage 0 % 0-5 [facility] Platelet countOrdered By: Felix Castorena on 07-04-2024 Platelets (Bld) [#/Vol] 187 10*3/uL 150-450 [facility] Platelet count 187 K/mm3 150-450 [facility] Potassium (Unsp spec) [Mass/ Vol]Ordered By: Gustavo Castorena on 07-04-2024 Potassium measurement (mass/volume) 3.3 mmol/L 3.3-5.1 [facility] Potassium measurement (mass/ volume)Ordered By: Gustavo Castorena on 07-04-2024 Potassium (Unsp spec) [Mass/Vol] 3.3 mmol/L 3.3-5.1 [facility] RBC Auto (Bld) [#/Vol]Ordere d By: Gustavo Castorena on 07-04-2024 RBC (Bld) [#/Vol] 2.84 10*6/uL Low 4.2-5.4 [facility] Automated blood erythrocyte count 2.84 M/mm3 Low 4.2-5.4 [facility] Serum creatinine measurement (mass/volume)Ordered By: Gustavo Castorena on 07-04-2024 Creatinine [Mass/Vol] 1.51 mg/dL High 0.70-1.20 [facility] Serum glucose measurement (m ass/volume)Ordered By: Gustavo Castorena on 07-04-2024 Glucose [Mass/Vol] 71 mg/dL 70-99 [facility] Serum or plasma calcium farheen urement (mass/volume)Ordered By: Gustavo Castorena on 07-04-2024 Calcium [Mass/Vol] 8.2 mg/dL 7.6-11.0 [facility] Serum or plasma urea nitroge n measurement (mass/volume)Ordered By: Gustavo Castorena on 07-04-2024 Urea nitrogen [Mass/Vol] 26 mg/dL High - [facility] Sodium levelOrdered By: Sharri Castorena on 07-04-2024 Sodium [Moles/Vol] 144 mmol/L 133-145 [facility] Sodium level 144 mmol/L 133-145 [facility] Urea nitrogen [Mass/Vol]Orde red By: Gustavo Castorena on 07-04-2024 Serum or plasma urea nitrogen measurement (mass/volume) 26 mg/dL High -19 [facility] White blood cell (WBC) count Ordered By: Gustavo Castorena on 07-04-2024 WBC (Bld) [#/Vol] 4.4 10*3/uL 4.4-11.0 [facility] White blood cell (WBC) count 4.4 K/mm3 4.4-11.0 [facility] Absolute lymphocyte countOrd ered By: Gustavo Castorena on 06-27-2024 Lymphocytes Auto (Unsp spec) [#/Vol] 1.65 10*3/uL 0.83-4.51 [facility] Absolute neutrophil countOrd ered By: Gustavo Castorena on 06-27-2024 Absolute neutrophil count 2.3 X10^3/uL 2.0-7.7 [facility] Anion gap [Moles/Vol]Ordered By: Gustavo Castorena on 06-27-2024 Anion gap in Serum or Plasma 10 5-15 [facility] Anion gap in Serum or Plasma Ordered By: Gustavo Castorena on 06-27-2024 Anion gap [Moles/Vol] 10 mmol/L 5-15 [facility] Automated lymphocyte count a s percentage of total leukocytesOrdered By: Gustavo Castorena on 06-27-2024 Lymphocytes/100 WBC Auto (Unsp spec) 35.6 % 19-41 [facility] BUN/creatinine ratioOrdered By: Gustavo Castorena on 06-27-2024 Urea nitrogen/Creatinine [Mass ratio] 21.3 mg/mg High 10-20 [facility] BUN/creatinine ratio 21.3 RATIO High 10-20 [facility] Basophil percentageOrdered B y: Gustavo Castorena on 06-27-2024 Basophils/100 WBC (Bld) 0.9 % 0-1 [facility] Basophil percentage 0.9 % 0-1 [facility] Calcium [Mass/Vol]Ordered By : Gustavo Castorena on 06-27-2024 Serum or plasma calcium measurement (mass/volume) 8.2 mg/dL 7.6-11.0 [facility] Carbon dioxide, total [Moles /volume] in Central venous bloodOrdered By: Gustavo Castorena on 06-27-2024 CO2 [Moles/Vol] 19.6 mmol/L Low 21.0-32.0 [facility] Carbon dioxide, total [Moles/volume] in Central venous blood 19.6 mmol/L Low 21.0-32.0 [facility] Chloride assayOrdered By: Felix Castorena on 06-27-2024 Chloride [Moles/Vol] 112 mmol/L High 98-108 [facility] Chloride assay 112 mmol/L High 98-108 [facility] Creatinine [Mass/Vol]Ordered By: Gustavo Castorena on 06-27-2024 Serum creatinine measurement (mass/volume) 1.31 mg/dL High 0.70-1.20 [facility] Eosinophil percentageOrdered By: Gustavo Castorena on 06-27-2024 Eosinophils/100 WBC (Bld) 7.1 % High 0-5 [facility] Erythrocyte distribution wid th (RBC) [Ratio]Ordered By: Gustavo Castorena on 06-27-2024 Erythrocyte distribution width ratio 17.0 % High 11.6-14.6 [facility] Erythrocyte distribution width standard deviation 65.1 fl High 35.1-43.9 [facility] Erythrocyte distribution wid th ratioOrdered By: Gustavo Castorena on 06-27-2024 Erythrocyte distribution width (RBC) [Ratio] 17.0 % High 11.6-14.6 [facility] Erythrocyte distribution wid th standard deviationOrdered By: Gustavo Castorena on 06-27-2024 Erythrocyte distribution width (RBC) [Ratio] 65.1 fl High 35.1-43.9 [facility] GFR/1.73 sq M.predicted kayden g non-blacks MDRD (S/P/Bld) [Vol rate/Area]Ordered By: Gustavo Castorena on 06-27-2024 Glomerular filtration rate (GFR) estimation/1.73 sq m using serum, plasma, or whole b 41 Low >60 [facility] Glomerular filtration rate ( GFR) estimation/1.73 sq m using serum, plasma, or whole bOrdered By: Gustavo Castorena on 06-27-2024 GFR/1.73 sq M.predicted among non-blacks MDRD (S/P/Bld) [Vol rate/Area] 41 mL/min/{1.73_m2} Low >60 [facility] Glucose [Mass/Vol]Ordered By : Gustavo Castorena on 06-27-2024 Serum glucose measurement (mass/volume) 76 mg/dL 70-99 [facility] Hematocrit Auto (Bld) [Volum e fraction]Ordered By: Gustavo Castorena on 06-27-2024 Hematocrit (Bld) [Volume fraction] 28.9 % Low 37-47 [facility] Automated blood hematocrit (percentage) 28.9 % Low 37-47 [facility] Hemoglobin measurementOrdere d By: Gustavo Castorena on 06-27-2024 Hemoglobin (Bld) [Mass/Vol] 8.6 g/dL Low 12.0-15.0 [facility] Hemoglobin measurement 8.6 g/dL Low 12.0-15.0 [facility] Immature granulocytes/100 WB C Auto (Bld)Ordered By: Gustavo Castorena on 06-27-2024 Immature granulocytes/100 WBC (Bld) 0.200 % 0.0-0.9 [facility] Automated immature granulocyte percentage 0.200 % 0.0-0.9 [facility] Lymphocytes Auto (Unsp spec) [#/Vol]Ordered By: Gustavo Castorena on 06-27-2024 Absolute lymphocyte count 1.65 X10^3/uL 0.83-4.51 [facility] Lymphocytes/100 WBC Auto (Un sp spec)Ordered By: Gustavo Castorena on 06-27-2024 Automated lymphocyte count as percentage of total leukocytes 35.6 % 19-41 [facility] MCV (RBC) [Entitic vol]Order ed By: Gustavo Castorena on 06-27-2024 MCV (mean corpuscular volume) determination 102.8 fL [facility] 81-99 [facility] MCV (mean corpuscular volume ) determinationOrdered By: Gustavo Castorena on 06-27-2024 MCV (RBC) [Entitic vol] 102.8 fL High 81-99 [facility] Mean corpuscular hemoglobin (MCH) determinationOrdered By: Gustavo Castorena on 06-27-2024 MCH (RBC) [Entitic mass] 30.6 pg 27.0-32.0 [facility] Mean corpuscular hemoglobin (MCH) determination 30.6 pg 27.0-32.0 [facility] Mean corpuscular hemoglobin concentration (MCHC) determinationOrdered By: Gustavo Castorena on 06-27-2024 Mean corpuscular hemoglobin concentration (MCHC) determination 29.8 g/dL Low 32-36 [facility] Mean platelet volume determi nationOrdered By: Gustavo Castorena on 06-27-2024 Mean platelet volume determination 12.5 fl High 6.2-12.0 [facility] Monocyte percentageOrdered B y: Gustavo Castorena on 06-27-2024 Monocytes/100 WBC (Bld) 7.1 % 0-10 [facility] Monocyte percentage 7.1 % High 0-5 [facility] Neutrophil percentageOrdered By: Gustavo Castorena on 06-27-2024 Neutrophils/100 WBC (Bld) 49.1 % 47-70 [facility] Neutrophil percentage 49.1 % 47-70 [facility] No Panel InformationOrdered By: Gustavo Castorena on 06-27-2024 1+ [facility] Nucleated red blood cell per centageOrdered By: Gustavo Castorena on 06-27-2024 Nucleated red blood cell percentage 0 % 0-5 [facility] Platelet countOrdered By: Felix Castorena on 06-27-2024 Platelets (Bld) [#/Vol] 201 10*3/uL 150-450 [facility] Platelet count 201 K/mm3 150-450 [facility] Potassium (Unsp spec) [Mass/ Vol]Ordered By: Gustavo Castorena on 06-27-2024 Potassium measurement (mass/volume) 3.9 mmol/L 3.3-5.1 [facility] Potassium measurement (mass/ volume)Ordered By: Gustavo Castorena on 06-27-2024 Potassium (Unsp spec) [Mass/Vol] 3.9 mmol/L 3.3-5.1 [facility] RBC Auto (Bld) [#/Vol]Ordere d By: Gustavo Castorena on 06-27-2024 RBC (Bld) [#/Vol] 2.81 10*6/uL Low 4.2-5.4 [facility] Automated blood erythrocyte count 2.81 M/mm3 Low 4.2-5.4 [facility] Serum creatinine measurement (mass/volume)Ordered By: Gustavo Castorena on 06-27-2024 Creatinine [Mass/Vol] 1.31 mg/dL High 0.70-1.20 [facility] Serum glucose measurement (m ass/volume)Ordered By: Gustavo Castorena on 06-27-2024 Glucose [Mass/Vol] 76 mg/dL 70-99 [facility] Serum or plasma calcium farheen urement (mass/volume)Ordered By: Gustavo Castorena on 06-27-2024 Calcium [Mass/Vol] 8.2 mg/dL 7.6-11.0 [facility] Serum or plasma urea nitroge n measurement (mass/volume)Ordered By: Gustavo Castorena on 06-27-2024 Urea nitrogen [Mass/Vol] 28 mg/dL High 07-23 [facility] Sodium levelOrdered By: Sharri Castorena on 06-27-2024 Sodium [Moles/Vol] 141 mmol/L 133-145 [facility] Sodium level 141 mmol/L 133-145 [facility] Urea nitrogen [Mass/Vol]Orde red By: Gusatvo Castorena on 06-27-2024 Serum or plasma urea nitrogen measurement (mass/volume) 28 mg/dL High 07-23 [facility] White blood cell (WBC) count Ordered By: Gustavo Castorena on 06-27-2024 WBC (Bld) [#/Vol] 4.6 10*3/uL 4.4-11.0 [facility] White blood cell (WBC) count 4.6 K/mm3 4.4-11.0 [facility] Absolute lymphocyte countOrd ered By: Gustavo Castorena on 06-20-2024 Lymphocytes Auto (Unsp spec) [#/Vol] 1.65 10*3/uL 0.83-4.51 [facility] Absolute neutrophil countOrd ered By: Gustavo Castorena on 06-20-2024 Absolute neutrophil count 2.5 X10^3/uL 2.0-7.7 [facility] Anion gap [Moles/Vol]Ordered By: Gustavo Castorena on 06-20-2024 Anion gap in Serum or Plasma 9 - [facility] Anion gap in Serum or Plasma Ordered By: Gustavo Castorena on 06-20-2024 Anion gap [Moles/Vol] 9 mmol/L 08-18 [facility] Automated lymphocyte count a s percentage of total leukocytesOrdered By: Gustavo Castorena on 06-20-2024 Lymphocytes/100 WBC Auto (Unsp spec) 34.5 % -41 [facility] BUN/creatinine ratioOrdered By: Gustavo Castorena on 06-20-2024 Urea nitrogen/Creatinine [Mass ratio] 22.3 mg/mg High 10-20 [facility] BUN/creatinine ratio 22.3 RATIO High 10-20 [facility] Basophil percentageOrdered B y: Gustavo Castorena on 06-20-2024 Basophils/100 WBC (Bld) 1.3 % High 0-1 [facility] Basophil percentage 1.3 % High 0-1 [facility] Calcium [Mass/Vol]Ordered By : Gustavo Castorena on 06-20-2024 Serum or plasma calcium measurement (mass/volume) 8.5 mg/dL 7.6-11.0 [facility] Carbon dioxide, total [Moles /volume] in Central venous bloodOrdered By: Gustavo Castorena on 06-20-2024 CO2 [Moles/Vol] 20.3 mmol/L Low 21.0-32.0 [facility] Carbon dioxide, total [Moles/volume] in Central venous blood 20.3 mmol/L Low 21.0-32.0 [facility] Chloride assayOrdered By: Felix Castorena on 06-20-2024 Chloride [Moles/Vol] 113 mmol/L High 98-108 [facility] Chloride assay 113 mmol/L High 98-108 [facility] Creatinine [Mass/Vol]Ordered By: Gustavo Castorena on 06-20-2024 Serum creatinine measurement (mass/volume) 1.75 mg/dL High 0.70-1.20 [facility] Eosinophil percentageOrdered By: Gustavo Castorena on 06-20-2024 Eosinophils/100 WBC (Bld) 5.6 % High 0-5 [facility] Eosinophil percentage 5.6 % High 0-5 [facility] Erythrocyte distribution wid th (RBC) [Ratio]Ordered By: Gustavo Castorena on 06-20-2024 Erythrocyte distribution width ratio 16.8 % High 11.6-14.6 [facility] Erythrocyte distribution width standard deviation 63.8 fl High 35.1-43.9 [facility] Erythrocyte distribution wid th ratioOrdered By: Gustavo Castorena on 06-20-2024 Erythrocyte distribution width (RBC) [Ratio] 16.8 % High 11.6-14.6 [facility] Erythrocyte distribution wid th standard deviationOrdered By: Gustavo Castorena on 06-20-2024 Erythrocyte distribution width (RBC) [Ratio] 63.8 fl High 35.1-43.9 [facility] GFR/1.73 sq M.predicted kayden g non-blacks MDRD (S/P/Bld) [Vol rate/Area]Ordered By: Gustavo Castorena on 06-20-2024 Glomerular filtration rate (GFR) estimation/1.73 sq m using serum, plasma, or whole b 29 Low >60 [facility] Glomerular filtration rate ( GFR) estimation/1.73 sq m using serum, plasma, or whole bOrdered By: Gustavo Castorena on 06-20-2024 GFR/1.73 sq M.predicted among non-blacks MDRD (S/P/Bld) [Vol rate/Area] 29 mL/min/{1.73_m2} Low >60 [facility] Glucose [Mass/Vol]Ordered By : Gustavo Castorena on 06-20-2024 Serum glucose measurement (mass/volume) 76 mg/dL 70-99 [facility] Hematocrit Auto (Bld) [Volum e fraction]Ordered By: Gustavo Castorena on 06-20-2024 Hematocrit (Bld) [Volume fraction] 29.1 % Low 37-47 [facility] Automated blood hematocrit (percentage) 29.1 % Low 37-47 [facility] Hemoglobin measurementOrdere d By: Gustavo Castorena on 06-20-2024 Hemoglobin (Bld) [Mass/Vol] 8.6 g/dL Low 12.0-15.0 [facility] Hemoglobin measurement 8.6 g/dL Low 12.0-15.0 [facility] Immature granulocytes/100 WB C Auto (Bld)Ordered By: Gustavo Castorena on 06-20-2024 Immature granulocytes/100 WBC (Bld) 0.200 % 0.0-0.9 [facility] Automated immature granulocyte percentage 0.200 % 0.0-0.9 [facility] Lymphocytes Auto (Unsp spec) [#/Vol]Ordered By: Gustavo Castorena on 06-20-2024 Absolute lymphocyte count 1.65 X10^3/uL 0.83-4.51 [facility] Lymphocytes/100 WBC Auto (Un sp spec)Ordered By: Gustavo Castorena on 06-20-2024 Automated lymphocyte count as percentage of total leukocytes 34.5 % 19-41 [facility] MCV (RBC) [Entitic vol]Order ed By: Gustavo Castorena on 06-20-2024 MCV (mean corpuscular volume) determination 104.3 fL [facility] 81-99 [facility] MCV (mean corpuscular volume ) determinationOrdered By: Gustavo Castorena on 06-20-2024 MCV (RBC) [Entitic vol] 104.3 fL High 81-99 [facility] Mean corpuscular hemoglobin (MCH) determinationOrdered By: Gustavo Castorena on 06-20-2024 MCH (RBC) [Entitic mass] 30.8 pg 27.0-32.0 [facility] Mean corpuscular hemoglobin (MCH) determination 30.8 pg 27.0-32.0 [facility] Mean corpuscular hemoglobin concentration (MCHC) determinationOrdered By: Gustavo Castorena on 06-20-2024 Mean corpuscular hemoglobin concentration (MCHC) determination 29.6 g/dL Low 32-36 [facility] Mean platelet volume determi nationOrdered By: Gustavo Castorena on 06-20-2024 Mean platelet volume determination 12.5 fl High 6.2-12.0 [facility] Monocyte percentageOrdered B y: Sharrirubiamaryann Castorena on 06-20-2024 Monocytes/100 WBC (Bld) 5.9 % 0-10 [facility] Monocyte percentage 5.9 % 0-10 [facility] Neutrophil percentageOrdered By: Gustavo Castorena on 06-20-2024 Neutrophils/100 WBC (Bld) 52.5 % 47-70 [facility] Neutrophil percentage 52.5 % 47-70 [facility] Nucleated red blood cell per centageOrdered By: Gustavo Castorena on 06-20-2024 Nucleated red blood cell percentage 0 % 0-5 [facility] Platelet countOrdered By: Felix Castorena on 06-20-2024 Platelets (Bld) [#/Vol] 258 10*3/uL 150-450 [facility] Platelet count 258 K/mm3 150-450 [facility] Potassium (Unsp spec) [Mass/ Vol]Ordered By: Gustavo Castorena on 06-20-2024 Potassium measurement (mass/volume) 4.4 mmol/L 3.3-5.1 [facility] Potassium measurement (mass/ volume)Ordered By: Gustavo Castorena on 06-20-2024 Potassium (Unsp spec) [Mass/Vol] 4.4 mmol/L 3.3-5.1 [facility] RBC Auto (Bld) [#/Vol]Ordere d By: Gustavo Castorena on 06-20-2024 RBC (Bld) [#/Vol] 2.79 10*6/uL Low 4.2-5.4 [facility] Automated blood erythrocyte count 2.79 M/mm3 Low 4.2-5.4 [facility] Serum creatinine measurement (mass/volume)Ordered By: Gustavo Castorena on 06-20-2024 Creatinine [Mass/Vol] 1.75 mg/dL High 0.70-1.20 [facility] Serum glucose measurement (m ass/volume)Ordered By: Gustavo Castorena on 06-20-2024 Glucose [Mass/Vol] 76 mg/dL 70-99 [facility] Serum or plasma calcium farheen urement (mass/volume)Ordered By: Gustavo Castorena on 06-20-2024 Calcium [Mass/Vol] 8.5 mg/dL 7.6-11.0 [facility] Serum or plasma urea nitroge n measurement (mass/volume)Ordered By: Gustavo Castorena on 06-20-2024 Urea nitrogen [Mass/Vol] 39 mg/dL High 07-23 [facility] Sodium levelOrdered By: Sharri Castorena on 06-20-2024 Sodium [Moles/Vol] 142 mmol/L 133-145 [facility] Sodium level 142 mmol/L 133-145 [facility] Urea nitrogen [Mass/Vol]Orde red By: Gustavo Castorena on 06-20-2024 Serum or plasma urea nitrogen measurement (mass/volume) 39 mg/dL High - [facility] White blood cell (WBC) count Ordered By: Gustavo Castorena on 06-20-2024 WBC (Bld) [#/Vol] 4.8 10*3/uL 4.4-11.0 [facility] White blood cell (WBC) count 4.8 K/mm3 4.4-11.0 [facility] ALP [Catalytic activity/Vol] Ordered By: Gustavo Castorena on 06-13-2024 Serum or plasma alkaline phosphatase measurement 86 U/L 35-104 [facility] ALT [Catalytic activity/Vol] Ordered By: Gustavo Castorena on 06-13-2024 Serum or plasma alanine aminotransferase (ALT) measurement 11 U/L <35 [facility] Absolute lymphocyte countOrd ered By: Gustavo Castorena on 06-13-2024 Lymphocytes Auto (Unsp spec) [#/Vol] 1.75 10*3/uL 0.83-4.51 [facility] Absolute neutrophil countOrd ered By: Gustavo Castorena on 06-13-2024 Absolute neutrophil count 2.3 X10^3/uL 2.0-7.7 [facility] Albumin [Mass/Vol]Ordered By : uGstavo Castorena on 06-13-2024 Serum or plasma albumin measurement (mass/volume) 2.5 g/dL Low 3.4-4.8 [facility] Albumin/Globulin [Mass ratio ]Ordered By: Gustavo Castornea on 06-13-2024 Serum or plasma albumin/globulin mass ratio 0.9 RATIO 0.9-2.4 [facility] Anion gap [Moles/Vol]Ordered By: Gustavo Castorena on 06-13-2024 Anion gap in Serum or Plasma 13 - [facility] Anion gap in Serum or Plasma Ordered By: Gustavo Castorena on 06-13-2024 Anion gap [Moles/Vol] 13 mmol/L 08-18 [facility] Automated lymphocyte count a s percentage of total leukocytesOrdered By: Gustavo Castorena on 06-13-2024 Lymphocytes/100 WBC Auto (Unsp spec) 36.6 % 19-41 [facility] BUN/creatinine ratioOrdered By: Gustavo Castorena on 06-13-2024 Urea nitrogen/Creatinine [Mass ratio] 26.0 mg/mg High 10-20 [facility] BUN/creatinine ratio 26.0 RATIO High 10-20 [facility] Basophil percentageOrdered B y: Gustavo Castorena on 06-13-2024 Basophils/100 WBC (Bld) 1.0 % 0-1 [facility] Basophil percentage 1.0 % 0-1 [facility] Bilirubin, totalOrdered By: Gustavo Castorena on 06-13-2024 Bilirubin [Mass/Vol] 0.17 mg/dL 0.00-1.30 [facility] Bilirubin, total 0.17 mg/dL 0.00-1.30 [facility] Calcium [Mass/Vol]Ordered By : Gustavo Castorena on 06-13-2024 Serum or plasma calcium measurement (mass/volume) 8.6 mg/dL 7.6-11.0 [facility] Calculated very low density lipoprotein (VLDL) cholesterol measurementOrdered By: Gustavo Castorena on 06-13-2024 Calculated very low density lipoprotein (VLDL) cholesterol measurement 21 mg/dL 5-40 [facility] Calculated very low density lipoprotein (VLDL) cholesterol measurement 21 mg/dL 5-40 [facility] Carbon dioxide, total [Moles /volume] in Central venous bloodOrdered By: Gustavo Castorena on 06-13-2024 CO2 [Moles/Vol] 18.2 mmol/L Low 21.0-32.0 [facility] Carbon dioxide, total [Moles/volume] in Central venous blood 18.2 mmol/L Low 21.0-32.0 [facility] Chloride assayOrdered By: Felix Castorena on 06-13-2024 Chloride [Moles/Vol] 113 mmol/L High 98-108 [facility] Chloride assay 113 mmol/L High 98-108 [facility] Cholesterol in HDL [Mass/Vol ]Ordered By: Gustavo Castorena on 06-13-2024 Serum or plasma cholesterol in HDL measurement (mass/volume) 27 mg/dL Low >40 [facility] Creatinine [Mass/Vol]Ordered By: Gustavo Castorena on 06-13-2024 Serum creatinine measurement (mass/volume) 1.60 mg/dL High 0.70-1.20 [facility] Eosinophil percentageOrdered By: Gustavo Castorena on 06-13-2024 Eosinophils/100 WBC (Bld) 7.5 % High 0-5 [facility] Eosinophil percentage 7.5 % High 0-5 [facility] Erythrocyte distribution wid th (RBC) [Ratio]Ordered By: Gustavo Castorena on 06-13-2024 Erythrocyte distribution width ratio 16.5 % High 11.6-14.6 [facility] Erythrocyte distribution width standard deviation 61.5 fl High 35.1-43.9 [facility] Erythrocyte distribution wid th ratioOrdered By: Gustavo Castorena on 06-13-2024 Erythrocyte distribution width (RBC) [Ratio] 16.5 % High 11.6-14.6 [facility] Erythrocyte distribution wid th standard deviationOrdered By: Gustavo Castorena on 06-13-2024 Erythrocyte distribution width (RBC) [Ratio] 61.5 fl High 35.1-43.9 [facility] GFR/1.73 sq M.predicted kayden g non-blacks MDRD (S/P/Bld) [Vol rate/Area]Ordered By: Gustavo Castorena on 06-13-2024 Glomerular filtration rate (GFR) estimation/1.73 sq m using serum, plasma, or whole b 32 Low >60 [facility] Glomerular filtration rate ( GFR) estimation/1.73 sq m using serum, plasma, or whole bOrdered By: Gustavo Castorena on 06-13-2024 GFR/1.73 sq M.predicted among non-blacks MDRD (S/P/Bld) [Vol rate/Area] 32 mL/min/{1.73_m2} Low >60 [facility] Glucose [Mass/Vol]Ordered By : Gustavo Castorena on 06-13-2024 Serum glucose measurement (mass/volume) 83 mg/dL 70-99 [facility] Hematocrit Auto (Bld) [Volum e fraction]Ordered By: Gustavo Castorena on 06-13-2024 Hematocrit (Bld) [Volume fraction] 29.2 % Low 37-47 [facility] Automated blood hematocrit (percentage) 29.2 % Low 37-47 [facility] Hemoglobin measurementOrdere d By: Gustavo Castorena on 06-13-2024 Hemoglobin (Bld) [Mass/Vol] 8.7 g/dL Low 12.0-15.0 [facility] Hemoglobin measurement 8.7 g/dL Low 12.0-15.0 [facility] Immature granulocytes/100 WB C Auto (Bld)Ordered By: Gustavo Castorena on 06-13-2024 Immature granulocytes/100 WBC (Bld) 0.200 % 0.0-0.9 [facility] Automated immature granulocyte percentage 0.200 % 0.0-0.9 [facility] LDL calc ser/plasOrdered By: Gustavo Castorena on 06-13-2024 Cholesterol in LDL [Mass/Vol] 56 mg/dL [facility] LDL calc ser/plas 56 mg/dL [facility] Lymphocytes Auto (Unsp spec) [#/Vol]Ordered By: Gustavo Castorena on 06-13-2024 Absolute lymphocyte count 1.75 X10^3/uL 0.83-4.51 [facility] Lymphocytes/100 WBC Auto (Un sp spec)Ordered By: Gustavo Castorena on 06-13-2024 Automated lymphocyte count as percentage of total leukocytes 36.6 % 19-41 [facility] MCV (RBC) [Entitic vol]Order ed By: Gustavo Castorena on 06-13-2024 MCV (mean corpuscular volume) determination 101.4 fL High 81-99 [facility] MCV (mean corpuscular volume ) determinationOrdered By: Gustavo Castorena on 06-13-2024 MCV (RBC) [Entitic vol] 101.4 fL High 81-99 [facility] Magnesium (Unsp spec) [Mass/ Vol]Ordered By: Gustavo Castorena on 06-13-2024 Magnesium measurement (mass/volume) 2.0 mg/dL 1.5-2.2 [facility] Magnesium measurement (mass/ volume)Ordered By: Gustavo Castorena on 06-13-2024 Magnesium (Unsp spec) [Mass/Vol] 2.0 mg/dL 1.5-2.2 [facility] Mean corpuscular hemoglobin (MCH) determinationOrdered By: Gustavo Castorena on 06-13-2024 MCH (RBC) [Entitic mass] 30.2 pg 27.0-32.0 [facility] Mean corpuscular hemoglobin (MCH) determination 30.2 pg 27.0-32.0 [facility] Mean corpuscular hemoglobin concentration (MCHC) determinationOrdered By: Gustavo Castorena on 06-13-2024 Mean corpuscular hemoglobin concentration (MCHC) determination 29.8 g/dL Low 32-36 [facility] Mean platelet volume determi nationOrdered By: Gustavo Castorena on 06-13-2024 Mean platelet volume determination 12.1 fl High 6.2-12.0 [facility] Monocyte percentageOrdered B y: Gustavo Castorena on 06-13-2024 Monocytes/100 WBC (Bld) 7.3 % 0-10 [facility] Monocyte percentage 7.3 % 0-10 [facility] Neutrophil percentageOrdered By: Gustavo Castorena on 06-13-2024 Neutrophils/100 WBC (Bld) 47.4 % 47-70 [facility] Neutrophil percentage 47.4 % 47-70 [facility] No Panel InformationOrdered By: Gustavo Castorena on 06-13-2024 20 U/L <32 [facility] Nucleated red blood cell per centageOrdered By: Gustavo Castorena on 06-13-2024 Nucleated red blood cell percentage 0 % 0-5 [facility] Platelet countOrdered By: Felix Castorena on 06-13-2024 Platelets (Bld) [#/Vol] 267 10*3/uL 150-450 [facility] Platelet count 267 K/mm3 150-450 [facility] Potassium (Unsp spec) [Mass/ Vol]Ordered By: Gustavo Castorena on 06-13-2024 Potassium measurement (mass/volume) 4.2 mmol/L 3.3-5.1 [facility] Potassium measurement (mass/ volume)Ordered By: Gustavo Castorena on 06-13-2024 Potassium (Unsp spec) [Mass/Vol] 4.2 mmol/L 3.3-5.1 [facility] RBC Auto (Bld) [#/Vol]Ordere d By: Gustavo Castorena on 06-13-2024 RBC (Bld) [#/Vol] 2.88 10*6/uL Low 4.2-5.4 [facility] Automated blood erythrocyte count 2.88 M/mm3 Low 4.2-5.4 [facility] Screening total cholesterol/ high density lipoprotein (HDL) cholesterol ratioOrdered By: Gustavo Castorena on 06-13-2024 Screening total cholesterol/high density lipoprotein (HDL) cholesterol ratio 3.85 [facility] Serum creatinine measurement (mass/volume)Ordered By: Gustavo Castorena on 06-13-2024 Creatinine [Mass/Vol] 1.60 mg/dL High 0.70-1.20 [facility] Serum globulin measurementOr dered By: Gustavo Castorena on 06-13-2024 Globulin (S) [Mass/Vol] 2.7 g/dL 2.2-4.2 [facility] Serum globulin measurement 2.7 g/dL 2.2-4.2 [facility] Serum glucose measurement (m ass/volume)Ordered By: Gustavo Castorena on 06-13-2024 Glucose [Mass/Vol] 83 mg/dL 70-99 [facility] Serum or plasma alanine huertas otransferase (ALT) measurementOrdered By: Gustavo Castorena on 06-13-2024 ALT [Catalytic activity/Vol] 11 U/L <35 [facility] Serum or plasma albumin farheen urement (mass/volume)Ordered By: Gustavo Castorena on 06-13-2024 Albumin [Mass/Vol] 2.5 g/dL Low 3.4-4.8 [facility] Serum or plasma albumin/glob ulin mass ratioOrdered By: Gustavo Castorena on 06-13-2024 Albumin/Globulin [Mass ratio] 0.9 {ratio} 0.9-2.4 [facility] Serum or plasma alkaline mariya sphatase measurementOrdered By: Gustavo Castorena on 06-13-2024 ALP [Catalytic activity/Vol] 86 U/L 35-104 [facility] Serum or plasma calcium farheen urement (mass/volume)Ordered By: Gustavo Castorena on 06-13-2024 Calcium [Mass/Vol] 8.6 mg/dL 7.6-11.0 [facility] Serum or plasma cholesterol in HDL measurement (mass/volume)Ordered By: Gustavo Castorena on 06-13-2024 Cholesterol in HDL [Mass/Vol] 27 mg/dL Low >40 [facility] Serum or plasma cholesterol measurement (mass/volume)Ordered By: Gustvao Castorena on 06-13-2024 Cholesterol [Mass/Vol] 104 mg/dL <201 [facility] Serum or plasma cholesterol measurement (mass/volume) 104 mg/dL <199 [facility] Serum or plasma urea nitroge n measurement (mass/volume)Ordered By: Gustavo Castorena on 06-13-2024 Urea nitrogen [Mass/Vol] 42 mg/dL High 4-19 [facility] Serum phosphorus measurement Ordered By: Gustavo Castorena on 06-13-2024 Serum phosphorus measurement 4.1 mg/dL 2.7-4.5 [facility] Sodium levelOrdered By: Sharri anamaria Castorena on 06-13-2024 Sodium [Moles/Vol] 144 mmol/L 133-145 [facility] Sodium level 144 mmol/L 133-145 [facility] TSH DL <= 0.005 mIU/L QnOrde red By: Gustavo Bradifrah on 06-13-2024 TSH Qn 3.000 uIU/mL 0.300-4.20 0 [facility] Serum or plasma thyroid stimulating hormone (TSH) measurement by high sensitivity met 3.000 uIU/mL 0.300-4.20 0 [facility] Total proteinOrdered By: Rolo key Bradevelynechela on 06-13-2024 Protein [Mass/Vol] 5.2 g/dL Low 5.9-8.4 [facility] Total protein 5.2 g/dL Low 5.9-8.4 [facility] Urea nitrogen [Mass/Vol]Orde red By: Gustavo Bradifrah on 06-13-2024 Serum or plasma urea nitrogen measurement (mass/volume) 42 mg/dL High 4-19 [facility] Vitamin D, 25-hydroxyOrdered By: Gustavo Bradifrah on 06-13-2024 Vitamin D, 25-hydroxy 20.2 ng/mL Low 30-100 [facility] White blood cell (WBC) count Ordered By: Sharrirubiamaryann Brownleeevelynechela on 06-13-2024 WBC (Bld) [#/Vol] 4.8 10*3/uL 4.4-11.0 [facility] White blood cell (WBC) count 4.8 K/mm3 4.4-11.0 [facility] Albumin [Mass/Vol]Ordered By : Mari Mehta on 06-10-2024 Serum or plasma albumin measurement (mass/volume) 2.7 g/dL Low 3.4-4.8 [facility] Anion gap [Moles/Vol]Ordered By: Mari Mehta on 06-10-2024 Anion gap in Serum or Plasma 14 5- [facility] Anion gap in Serum or Plasma Ordered By: Mari Mehta on 06-10-2024 Anion gap [Moles/Vol] 14 mmol/L 5- [facility] BUN/creatinine ratioOrdered By: Mari Mehta on 06-10-2024 Urea nitrogen/Creatinine [Mass ratio] 26.1 mg/mg High 10-20 [facility] BUN/creatinine ratio 26.1 RATIO High 10-20 [facility] Calcium [Mass/Vol]Ordered By : Mari Mehta on 06-10-2024 Serum or plasma calcium measurement (mass/volume) 8.3 mg/dL 7.6-11.0 [facility] Carbon dioxide, total [Moles /volume] in Central venous bloodOrdered By: Mari Mehta on 06-10-2024 CO2 [Moles/Vol] 20.9 mmol/L Low 21.0-32.0 [facility] Carbon dioxide, total [Moles/volume] in Central venous blood 20.9 mmol/L Low 21.0-32.0 [facility] Chloride assayOrdered By: Manjeet Mehta on 06-10-2024 Chloride [Moles/Vol] 107 mmol/L 98-108 [facility] Chloride assay 107 mmol/L 98-108 [facility] Creatinine [Mass/Vol]Ordered By: Mari Mehta on 06-10-2024 Serum creatinine measurement (mass/volume) 2.03 mg/dL High 0.70-1.20 [facility] Estimation of creatinine jackie aranceOrdered By: Mari Mehta on 06-10-2024 Estimation of creatinine clearance 23.01 ml/min Low 50-250 [facility] GFR/1.73 sq M.predicted kayden g non-blacks MDRD (S/P/Bld) [Vol rate/Area]Ordered By: Mari Mehta on 06-10-2024 Glomerular filtration rate (GFR) estimation/1.73 sq m using serum, plasma, or whole b 24 Low >60 [facility] Glomerular filtration rate ( GFR) estimation/1.73 sq m using serum, plasma, or whole bOrdered By: Mari Mehta on 06-10-2024 GFR/1.73 sq M.predicted among non-blacks MDRD (S/P/Bld) [Vol rate/Area] 24 mL/min/{1.73_m2} Low >60 [facility] Glucose [Mass/Vol]Ordered By : Mari Mehta on 06-10-2024 Serum glucose measurement (mass/volume) 88 mg/dL 70-99 [facility] Potassium (Unsp spec) [Mass/ Vol]Ordered By: Mari Mehta on 06-10-2024 Potassium measurement (mass/volume) 4.2 mmol/L 3.3-5.1 [facility] Potassium measurement (mass/ volume)Ordered By: Mari Mehta on 06-10-2024 Potassium (Unsp spec) [Mass/Vol] 4.2 mmol/L 3.3-5.1 [facility] Renal Profileon 06-10-2024 Albumin [Mass/Vol] 2.7 g/dL Low 3.4-4.8 [facility] Comment on above: Performed By: #### L [id number] ####[facility] [id number] [place], [address] BUN/CRE 26.1 RATIO High 10-20 [facility] Comment on above: Performed By: #### L [id number] ####[facility] [id number] [place], [address] Calcium [Mass/Vol] 8.3 mg/dL Normal 7.6-11.0 [facility] Comment on above: Performed By: #### L [id number] ####[facility] [address] [place], [address] Chloride [Moles/Vol] 107 mmol/L Normal 98-108 [facility] Comment on above: Performed By: #### L [id number] ####[facility] [id number] [place], [address] CO2 [Moles/Vol] 20.9 mmol/L Low 21.0-32.0 [facility] Comment on above: Performed By: #### L [id number] ####[facility] [address] [place], [address] Creatinine [Mass/Vol] 2.03 mg/dL High 0.70-1.20 [facility] Comment on above: Performed By: #### L [id number] ####[facility] [address] [place], [address] ECRCL 23.01 ml/min Low 50-250 [facility] Comment on above: Performed By: #### L [id number] ####[facility] [address] [place], [address] GAP 14 Normal 5-15 [facility] Comment on above: Performed By: #### L [id number] ####[facility] [id number] [place], [address] GFR/1.73 sq M.predicted among non-blacks MDRD (S/P/Bld) [Vol rate/Area] 24 mL/min/{1.73_m2} Low >60 [facility] Comment on above: Result Comment: mL/m in/1.73m2 CKD-EPI Creatinine Equation (2020) Performed By: #### L [id number] ####[facility] [address] [place], [address] Glucose [Mass/Vol] 88 mg/dL Normal 70-99 [facility] Comment on above: Performed By: #### L [id number] ####[facility] [address] [place], [address] Phosphate [Mass/Vol] 5.2 mg/dL High 2.7-4.5 [facility] Comment on above: Performed By: #### L [id number] ####[facility] [address] [place], [address] Potassium [Moles/Vol] 4.2 mmol/L Normal 3.3-5.1 [facility] Comment on above: Performed By: #### L [id number] ####[facility] [address] [place], [address] Sodium [Moles/Vol] 142 mmol/L Normal 133-145 [facility] Comment on above: Performed By: #### L [id number] ####[facility] [address] [place], [place], [id number] Urea nitrogen [Mass/Vol] 53 mg/dL High 07-23 [facility] Comment on above: Performed By: #### L [id number] ####[facility] [address] [place], [place], [id number] Serum creatinine measurement (mass/volume)Ordered By: Mari Mehta on 06-10-2024 Creatinine [Mass/Vol] 2.03 mg/dL High 0.70-1.20 [facility] Serum glucose measurement (m ass/volume)Ordered By: Mari Mehta on 06-10-2024 Glucose [Mass/Vol] 88 mg/dL 70-99 [facility] Serum or plasma albumin farheen urement (mass/volume)Ordered By: Mari Mehta on 06-10-2024 Albumin [Mass/Vol] 2.7 g/dL Low 3.4-4.8 [facility] Serum or plasma calcium farheen urement (mass/volume)Ordered By: Mari Mehta on 06-10-2024 Calcium [Mass/Vol] 8.3 mg/dL 7.6-11.0 [facility] Serum or plasma urea nitroge n measurement (mass/volume)Ordered By: Mari Mehta on 06-10-2024 Urea nitrogen [Mass/Vol] 53 mg/dL High 07-23 [facility] Serum phosphorus measurement Ordered By: Mari Mehta on 06-10-2024 Serum phosphorus measurement 5.2 mg/dL High 2.7-4.5 [facility] Sodium levelOrdered By: Mari Mehta on 06-10-2024 Sodium [Moles/Vol] 142 mmol/L 133-145 [facility] Sodium level 142 mmol/L 133-145 [facility] Urea nitrogen [Mass/Vol]Orde red By: Mari Mehta on 06-10-2024 Serum or plasma urea nitrogen measurement (mass/volume) 53 mg/dL High 07-23 [facility] Renal Profileon 06-09-2024 Albumin [Mass/Vol] 2.7 g/dL Low 3.4-4.8 [facility] Comment on above: Performed By: #### L [id number] ####[facility] [id number] [place], [address] BUN/CRE 25.7 RATIO High 10-20 [facility] Comment on above: Performed By: #### L [id number] ####[facility] [address] [place], [address] Calcium [Mass/Vol] 8.4 mg/dL Normal 7.6-11.0 [facility] Comment on above: Performed By: #### L [id number] ####[facility] [id number] [place], [address] Chloride [Moles/Vol] 103 mmol/L Normal 98-108 [facility] Comment on above: Performed By: #### L [id number] ####[facility] [address] [place], [address] CO2 [Moles/Vol] 21.7 mmol/L Normal 21.0-32.0 [facility] Comment on above: Performed By: #### L 500.3600 ####[facility] [address] [place], [address] Creatinine [Mass/Vol] 2.14 mg/dL High 0.70-1.20 [facility] Comment on above: Performed By: #### L 500.3600 ####[facility] [address] [place], [address] ECRCL 21.83 ml/min Low 50-250 [facility] Comment on above: Performed By: #### L 500.3600 ####[facility] [address] [place], [address] GAP 16 High 5-15 [facility] Comment on above: Performed By: #### L 500.3600 ####[facility] [address] [place], [address] GFR/1.73 sq M.predicted among non-blacks MDRD (S/P/Bld) [Vol rate/Area] 23 mL/min/{1.73_m2} Low >60 [facility] Comment on above: Result Comment: mL/m in/1.73m2 CKD-EPI Creatinine Equation (2020) Performed By: #### L 500.3600 ####[facility] [address] [place], [address] Glucose [Mass/Vol] 86 mg/dL Normal 70-99 [facility] Comment on above: Performed By: #### L 500.3600 ####[facility] [address] [place], [address] Potassium [Moles/Vol] 4.1 mmol/L Normal 3.3-5.1 [facility] Comment on above: Performed By: #### L 500.3600 ####[facility] [address] [place], [address] Sodium [Moles/Vol] 140 mmol/L Normal 133-145 [facility] Comment on above: Performed By: #### L 500.3600 ####[facility] [address] [place], [address] Urea nitrogen [Mass/Vol] 55 mg/dL High 4-19 [facility] Comment on above: Performed By: #### L 500.3600 ####[facility] [address] [place], [address] CBC-Complete Blood Cnt No Di ffon 06-07-2024 Erythrocyte distribution width (RBC) [Ratio] 16.4 % High 11.6-14.6 [facility] Comment on above: Performed By: #### L 500.3600, L100.0500 ####[facility] [address] [place], [address] Hematocrit (Bld) [Volume fraction] 30.1 % Low 37-47 [facility] Comment on above: Performed By: #### L 500.3600, L100.0500 ####[facility] [address] [place], [address] Hemoglobin (Bld) [Mass/Vol] 9.3 g/dL Low 12.0-15.0 [facility] Comment on above: Performed By: #### L 500.3600, L100.0500 ####[facility] [address] [place], [address] MCH (RBC) [Entitic mass] 30.7 pg Normal 27.0-32.0 [facility] Comment on above: Performed By: #### L 500.3600, L100.0500 ####[facility] [address] [place], [address] MCHC (RBC) [Mass/Vol] 30.9 g/dL Low 32-36 [facility] Comment on above: Performed By: #### L 500.3600, L100.0500 ####[facility] [address] [place], [address] MCV (RBC) [Entitic vol] 99.3 fL High 81-99 [facility] Comment on above: Performed By: #### L 500.3600, L100.0500 ####[facility] [address] [place], [address] Platelet mean volume (Bld) [Entitic vol] 12.4 fL High 6.2-12.0 [facility] Comment on above: Performed By: #### L 500.3600, L100.0500 ####[facility] [address] [place], [address] Platelets (Bld) [#/Vol] 241 10*3/uL Normal 150-450 [facility] Comment on above: Performed By: #### L 500.3600, L100.0500 ####[facility] [address] [place], [address] RBC (Bld) [#/Vol] 3.03 10*6/uL Low 4.2-5.4 [facility] Comment on above: Performed By: #### L 500.3600, L100.0500 ####[facility] [address] [place], [address] RDW SD 59.5 fl High 35.1-43.9 [facility] Comment on above: Performed By: #### L 500.3600, L100.0500 ####[facility] [address] [place], [address] WBC (Bld) [#/Vol] 7.8 10*3/uL Normal 4.4-11.0 [facility] Comment on above: Performed By: #### L 500.3600, L100.0500 ####[facility] [address] [place], [address] Chloride measurementOrdered By: Mari Mehta on 06-07-2024 Chloride [Moles/Vol] 103 mmol/L 96-108 [facility] Chloride measurement 103 mmol/L 96-108 [facility] Erythrocyte distribution wid th (RBC) [Ratio]Ordered By: Mari Mehta on 06-07-2024 Erythrocyte distribution width ratio 16.4 % High 11.6-14.6 [facility] Erythrocyte distribution width standard deviation 59.5 fl High 35.1-43.9 [facility] Erythrocyte distribution wid th ratioOrdered By: Mari Mehta on 06-07-2024 Erythrocyte distribution width (RBC) [Ratio] 16.4 % High 11.6-14.6 [facility] Erythrocyte distribution wid th standard deviationOrdered By: Mari Metha on 06-07-2024 Erythrocyte distribution width (RBC) [Ratio] 59.5 fl High 35.1-43.9 [facility] Hematocrit Auto (Bld) [Volum e fraction]Ordered By: Mari Mehta on 06-07-2024 Hematocrit (Bld) [Volume fraction] 30.1 % Low 37-47 [facility] Automated blood hematocrit (percentage) 30.1 % Low 37-47 [facility] Hemoglobin measurementOrdere d By: Mari Mehta on 06-07-2024 Hemoglobin (Bld) [Mass/Vol] 9.3 g/dL Low 12.0-15.0 [facility] Hemoglobin measurement 9.3 g/dL Low 12.0-15.0 [facility] MCV (RBC) [Entitic vol]Order ed By: Mari Mehta on 06-07-2024 MCV (mean corpuscular volume) determination 99.3 fL High 81-99 [facility] MCV (mean corpuscular volume ) determinationOrdered By: Mari Mehta on 06-07-2024 MCV (RBC) [Entitic vol] 99.3 fL High 81-99 [facility] Mean corpuscular hemoglobin (MCH) determinationOrdered By: Mari Mehta on 06-07-2024 MCH (RBC) [Entitic mass] 30.7 pg 27.0-32.0 [facility] Mean corpuscular hemoglobin (MCH) determination 30.7 pg 27.0-32.0 [facility] Mean corpuscular hemoglobin concentration (MCHC) determinationOrdered By: Mari Mehta on 06-07-2024 Mean corpuscular hemoglobin concentration (MCHC) determination 30.9 g/dL Low 32-36 [facility] Mean platelet volume determi nationOrdered By: Mari Mehta on 06-07-2024 Mean platelet volume determination 12.4 fl High 6.2-12.0 [facility] Platelet countOrdered By: Manjeet Mehta on 06-07-2024 Platelets (Bld) [#/Vol] 241 10*3/uL 150-450 [facility] Platelet count 241 K/mm3 150-450 [facility] RBC Auto (Bld) [#/Vol]Ordere d By: Mari Mehta on 06-07-2024 RBC (Bld) [#/Vol] 3.03 10*6/uL Low 4.2-5.4 [facility] Automated blood erythrocyte count 3.03 M/mm3 Low 4.2-5.4 [facility] Renal Profileon 06-07-2024 Albumin [Mass/Vol] 2.7 g/dL Low 3.4-4.8 [facility] Comment on above: Performed By: #### L 500.3600, L100.0500 ####[facility] [address] [place], [address] BUN/CRE 24.2 RATIO High 10-20 [facility] Comment on above: Performed By: #### L 500.3600, L100.0500 ####[facility] [address] [place], [address] Calcium [Mass/Vol] 8.4 mg/dL Normal 7.6-11.0 [facility] Comment on above: Performed By: #### L 500.3600, L100.0500 ####[facility] [address] [place], [address] Chloride [Moles/Vol] 103 mmol/L Normal 96-108 [facility] Comment on above: Performed By: #### L 500.3600, L100.0500 ####[facility] [address] [place], [address] CO2 [Moles/Vol] 25.0 mmol/L Normal 22.0-29.0 [facility] Comment on above: Performed By: #### L 500.3600, L100.0500 ####[facility] [address] [place], [address] Creatinine [Mass/Vol] 1.78 mg/dL High 0.70-1.20 [facility] Comment on above: Performed By: #### L 500.3600, L100.0500 ####[facility] [address] [place], [address] ECRCL 26.74 ml/min Low 50-250 [facility] Comment on above: Performed By: #### L 500.3600, L100.0500 ####[facility] [address] [place], [address] GFR/1.73 sq M.predicted among non-blacks MDRD (S/P/Bld) [Vol rate/Area] 28 mL/min/{1.73_m2} Low >60 [facility] Comment on above: Result Comment: mL/m in/1.73m2 CKD-EPI Creatinine Equation (2020) Performed By: #### L 500.3600, L100.0500 ####[facility] [address] [place], [address] Glucose [Mass/Vol] 89 mg/dL Normal 70-99 [facility] Comment on above: Performed By: #### L 500.3600, L100.0500 ####[facility] [address] [place], [address] Phosphate [Mass/Vol] 4.6 mg/dL High 2.7-4.5 [facility] Comment on above: Performed By: #### L 500.3600, L100.0500 ####[facility] [address] [place], [address] Potassium [Moles/Vol] 3.9 mmol/L Normal 3.3-5.1 [facility] Comment on above: Performed By: #### L 500.3600, L100.0500 ####[facility] [address] [place], [address] Sodium [Moles/Vol] 139 mmol/L Normal 133-145 [facility] Comment on above: Performed By: #### L 500.3600, L100.0500 ####[facility] [address] [place], [address] Urea nitrogen [Mass/Vol] 43 mg/dL High 4-19 [facility] Comment on above: Performed By: #### L 500.3600, L100.0500 ####[facility] [address] [place], [address] White blood cell (WBC) count Ordered By: Mari Mehta on 06-07-2024 WBC (Bld) [#/Vol] 7.8 10*3/uL 4.4-11.0 [facility] White blood cell (WBC) count 7.8 K/mm3 4.4-11.0 [facility] Wrist min 3 Viewson 06-07-19 25 Wrist min 3 Views Normal [facility] Basic Metabolic Profile (BMP )on 06-03-2024 Anion gap [Moles/Vol] 12 mmol/L Normal 5-15 [facility] Comment on above: Performed By: #### L 500.2500, L501.2300, L100.0600 ####[facility] [address] [place], [address] BUN/CRE 21.7 RATIO High 10-20 [facility] Comment on above: Performed By: #### L 500.2500, L501.2300, L100.0600 ####[facility] [address] [place], [address] Calcium [Mass/Vol] 8.2 mg/dL Normal 7.6-11.0 [facility] Comment on above: Performed By: #### L 500.2500, L501.2300, L100.0600 ####[facility] [address] [place], [address] Chloride [Moles/Vol] 104 mmol/L Normal 96-108 [facility] Comment on above: Performed By: #### L 500.2500, L501.2300, L100.0600 ####[facility] [address] [place], [address] CO2 [Moles/Vol] 23.4 mmol/L Normal 22.0-29.0 [facility] Comment on above: Performed By: #### L 500.2500, L501.2300, L100.0600 ####[facility] [address] [place], [address] Creatinine [Mass/Vol] 2.07 mg/dL High 0.70-1.20 [facility] Comment on above: Performed By: #### L 500.2500, L501.2300, L100.0600 ####[facility] [address] [place], [address] ECRCL 23.05 ml/min Normal [facility] Comment on above: Performed By: #### L 500.2500, L501.2300, L100.0600 ####[facility] [address] [place], [address] GFR/1.73 sq M.predicted among non-blacks MDRD (S/P/Bld) [Vol rate/Area] 24 mL/min/{1.73_m2} Low >60 [facility] Comment on above: Result Comment: mL/m in/1.73m2 CKD-EPI Creatinine Equation (2020) Performed By: #### L 500.2500, L501.2300, L100.0600 ####[facility] [address] [place], [address] Glucose [Mass/Vol] 90 mg/dL Normal 70-99 [facility] Comment on above: Performed By: #### L 500.2500, L501.2300, L100.0600 ####[facility] [address] [place], [address] Potassium [Moles/Vol] 4.5 mmol/L Normal 3.3-5.1 [facility] Comment on above: Result Comment: Hemo lysis present, Results??could be affected.?? Performed By: #### L 500.2500, L501.2300, L100.0600 ####[facility] [address] [place], [address] Sodium [Moles/Vol] 140 mmol/L Normal 133-145 [facility] Comment on above: Performed By: #### L 500.2500, L501.2300, L100.0600 ####[facility] [address] [place], [address] Urea nitrogen [Mass/Vol] 45 mg/dL High 4-19 [facility] Comment on above: Performed By: #### L 500.2500, L501.2300, L100.0600 ####[facility] [address] [place], [address] HH, Hemoglobin AND Hematocri ton 06-03-2024 Hematocrit (Bld) [Volume fraction] 27.1 % Low 37-47 [facility] Comment on above: Performed By: #### L 500.2500, L501.2300, L100.0600 ####[facility] [address] [place], [address] Hemoglobin (Bld) [Mass/Vol] 8.1 g/dL Low 12.0-15.0 [facility] Comment on above: Performed By: #### L 500.2500, L501.2300, L100.0600 ####[facility] [address] [place], [address] Phosphoruson 06-03-2024 Phosphate [Mass/Vol] 4.9 mg/dL High 2.7-4.5 [facility] Comment on above: Performed By: #### L 500.2500, L501.2300, L100.0600 ####[facility] [address] [place], [address] Estimated glomerular filtrat ion rate (GFR) AmericanOrdered By: Mari Mehta on 05-30-2024 Estimated glomerular filtration rate (GFR) 32 mL/min Low >60 [facility] HH, Hemoglobin AND Hematocri ton 05-30-2024 Hematocrit (Bld) [Volume fraction] 27.6 % Low 37-47 [facility] Comment on above: Performed By: #### L 500.3600, L100.0600 ####[facility] [address] [place], [address] Hemoglobin (Bld) [Mass/Vol] 8.3 g/dL Low 12.0-15.0 [facility] Comment on above: Performed By: #### L 500.3600, L100.0600 ####[facility] [address] [place], [address] Renal Profileon 05-30-2024 Albumin [Mass/Vol] 1.9 g/dL Low 3.2-5.0 [facility] Comment on above: Performed By: #### L 500.3600, L100.0600 ####[facility] [address] [place], [address] BUN/CRE 22.1 RATIO High 10-20 [facility] Comment on above: Performed By: #### L 500.3600, L100.0600 ####[facility] [address] [place], [address] CA,Total 8.4 mg/dL Low 8.5-10.1 [facility] Comment on above: Performed By: #### L 500.3600, L100.0600 ####[facility] [address] [place], [address] Chloride [Moles/Vol] 106 mmol/L Normal 98-107 [facility] Comment on above: Performed By: #### L 500.3600, L100.0600 ####[facility] [address] [place], [address] CO2 [Moles/Vol] 27.0 mmol/L Normal 21.0-32.0 [facility] Comment on above: Performed By: #### L 500.3600, L100.0600 ####[facility] [address] [place], [address] Creatinine [Mass/Vol] 1.95 mg/dL High 0.55-1.02 [facility] Comment on above: Result Comment: The validity of the calculated GFR GFRAA in patients over70 years has not been determined. Clinical correlation isessential. Performed By: #### L 500.3600, L100.0600 ####[facility] [address] [place], [address] ECRCL 24.28 ml/min Normal [facility] Comment on above: Performed By: #### L 500.3600, L100.0600 ####[facility] [address] [place], [address] EST GFR - AA 32 mL/min Low >60 [facility] Comment on above: Result Comment: Afri can British GFR Calc Performed By: #### L 500.3600, L100.0600 ####[facility] [address] [place], [address] GFR/1.73 sq M.predicted among non-blacks MDRD (S/P/Bld) [Vol rate/Area] 26 mL/min/{1.73_m2} Low >60 [facility] Comment on above: Result Comment: Non- GFR Calc Performed By: #### L 500.3600, L100.0600 ####[facility] [address] [place], [address] Glucose [Mass/Vol] 86 mg/dL Normal 74-106 [facility] Comment on above: Performed By: #### L 500.3600, L100.0600 ####[facility] [address] [place], [address] Phosphate [Mass/Vol] 3.7 mg/dL Normal 2.5-4.9 [facility] Comment on above: Performed By: #### L 500.3600, L100.0600 ####[facility] [address] [place], [address] Potassium [Moles/Vol] 4.8 mmol/L Normal 3.5-5.1 [facility] Comment on above: Performed By: #### L 500.3600, L100.0600 ####[facility] [address] [place], [address] Sodium [Moles/Vol] 140 mmol/L Normal 136-145 [facility] Comment on above: Performed By: #### L 500.3600, L100.0600 ####[facility] [address] [place], [address] Urea nitrogen [Mass/Vol] 43 mg/dL High 7-18 [facility] Comment on above: Performed By: #### L 500.3600, L100.0600 ####[facility] [address] [place], [address] Absolute lymphocyte countOrd ered By: Mari Janine on 05-27-2024 Lymphocytes Auto (Unsp spec) [#/Vol] 1.59 10*3/uL 0.83-4.51 [facility] Absolute neutrophil countOrd ered By: Mari Janine on 05-27-2024 Absolute neutrophil count 4.5 X10^3/uL 2.0-7.7 [facility] Albumin, Serumon 05-27-2024 Albumin [Mass/Vol] 2.2 g/dL Low 3.2-5.0 [facility] Comment on above: Performed By: #### L 501.1800, L500.2500, L100.0100 ####[facility] [address] [place], [address] Automated lymphocyte count a s percentage of total leukocytesOrdered By: Mari Mehta on 05-27-2024 Lymphocytes/100 WBC Auto (Unsp spec) 22.7 % 19-41 [facility] Basic Metabolic Profile (BMP )on 05-27-2024 BUN/CRE 21.2 RATIO High 10-20 [facility] Comment on above: Performed By: #### L 501.1800, L500.2500, L100.0100 ####[facility] [address] [place], [address] CA,Total 8.4 mg/dL Low 8.5-10.1 [facility] Comment on above: Performed By: #### L 501.1800, L500.2500, L100.0100 ####[facility] [address] [place], [address] Chloride [Moles/Vol] 106 mmol/L Normal 98-107 [facility] Comment on above: Performed By: #### L 501.1800, L500.2500, L100.0100 ####[facility] [address] [place], [address] CO2 [Moles/Vol] 24.0 mmol/L Normal 21.0-32.0 [facility] Comment on above: Performed By: #### L 501.1800, L500.2500, L100.0100 ####[facility] [address] [place], [address] Creatinine [Mass/Vol] 1.98 mg/dL High 0.55-1.02 [facility] Comment on above: Result Comment: The validity of the calculated GFR GFRAA in patients over70 years has not been determined. Clinical correlation isessential. Performed By: #### L 501.1800, L500.2500, L100.0100 ####[facility] [address] [place], [address] ECRCL 24.07 ml/min Normal [facility] Comment on above: Performed By: #### L 501.1800, L500.2500, L100.0100 ####[facility] [address] [place], [address] EST GFR - AA 31 mL/min Low >60 [facility] Comment on above: Result Comment: Afri can [place] GFR Calc Performed By: #### L 501.1800, L500.2500, L100.0100 ####[facility] [address] [place], [address] GAP 10 Normal 5-15 [facility] Comment on above: Performed By: #### L 501.1800, L500.2500, L100.0100 ####[facility] [address] [place], [address] GFR/1.73 sq M.predicted among non-blacks MDRD (S/P/Bld) [Vol rate/Area] 26 mL/min/{1.73_m2} Low >60 [facility] Comment on above: Result Comment: Non- GFR Calc Performed By: #### L 501.1800, L500.2500, L100.0100 ####[facility] [address] [place], [address] Glucose [Mass/Vol] 85 mg/dL Normal 74-106 [facility] Comment on above: Performed By: #### L 501.1800, L500.2500, L100.0100 ####[facility] [address] [place], [address] Potassium [Moles/Vol] 4.2 mmol/L Normal 3.5-5.1 [facility] Comment on above: Performed By: #### L 501.1800, L500.2500, L100.0100 ####[facility] [address] [place], [address] Sodium [Moles/Vol] 140 mmol/L Normal 136-145 [facility] Comment on above: Performed By: #### L 501.1800, L500.2500, L100.0100 ####[facility] [address] [place], [address] Urea nitrogen [Mass/Vol] 42 mg/dL High 7-18 [facility] Comment on above: Performed By: #### L 501.1800, L500.2500, L100.0100 ####[facility] [address] [place], [address] Basophil percentageOrdered B y: Mari Mehta on 05-27-2024 Basophils/100 WBC (Bld) 1.0 % 0-1 [facility] Basophil percentage 1.0 % 0-1 [facility] CBC W/Diff, Automatedon 05-08 Absolute Lymph 1.59 X10 3/uL Normal 0.83-4.51 [facility] Comment on above: Performed By: #### L 501.1800, L500.2500, L100.0100 ####[facility] [address] [place], [address] Absolute Neut 4.5 X10 3/uL Normal 2.0-7.7 [facility] Comment on above: Performed By: #### L 501.1800, L500.2500, L100.0100 ####[facility] [address] [place], [address] Basophils/100 WBC (Bld) 1.0 % Normal 0-1 [facility] Comment on above: Performed By: #### L 501.1800, L500.2500, L100.0100 ####[facility] [address] [place], [address] Eosinophils/100 WBC (Bld) 4.3 % Normal 0-5 [facility] Comment on above: Performed By: #### L 501.1800, L500.2500, L100.0100 ####[facility] [address] [place], [address] Erythrocyte distribution width (RBC) [Ratio] 17.0 % High 11.6-14.6 [facility] Comment on above: Performed By: #### L 501.1800, L500.2500, L100.0100 ####[facility] [address] [place], [address] Hematocrit (Bld) [Volume fraction] 28.2 % Low 37-47 [facility] Comment on above: Performed By: #### L 501.1800, L500.2500, L100.0100 ####[facility] [address] [place], [address] Hemoglobin (Bld) [Mass/Vol] 8.5 g/dL Low 12.0-15.0 [facility] Comment on above: Performed By: #### L 501.1800, L500.2500, L100.0100 ####[facility] [address] [place], [address] IG% 0.700 Normal 0.0-0.9 [facility] Comment on above: Result Comment: IG% - Immature Granulocytes (promyelocytes, myelocytes andmetamyelocytes) > 1% indicates that a LEFT SHIFT is Present. Performed By: #### L 501.1800, L500.2500, L100.0100 ####[facility] [address] [place], [address] Lymphocytes/100 WBC (Bld) 22.7 % Normal 19-41 [facility] Comment on above: Performed By: #### L 501.1800, L500.2500, L100.0100 ####[facility] [address] [place], [address] MCH (RBC) [Entitic mass] 30.1 pg Normal 27.0-32.0 [facility] Comment on above: Performed By: #### L 501.1800, L500.2500, L100.0100 ####[facility] [address] [place], [address] MCHC (RBC) [Mass/Vol] 30.1 g/dL Low 32-36 [facility] Comment on above: Performed By: #### L 501.1800, L500.2500, L100.0100 ####[facility] [address] [place], [address] MCV (RBC) [Entitic vol] 100.0 fL High 81-99 [facility] Comment on above: Performed By: #### L 501.1800, L500.2500, L100.0100 ####[facility] [address] [place], [address] Monocytes/100 WBC (Bld) 7.6 % Normal 0-10 [facility] Comment on above: Performed By: #### L 501.1800, L500.2500, L100.0100 ####[facility] [address] [place], [address] Neutrophils/100 WBC (Bld) 63.7 % Normal 47-70 [facility] Comment on above: Performed By: #### L 501.1800, L500.2500, L100.0100 ####[facility] [address] [place], [address] Nucleated RBC (Bld) [#/Vol] 0 10*3/uL Normal 0-5 [facility] Comment on above: Performed By: #### L 501.1800, L500.2500, L100.0100 ####[facility] [address] [place], [address] Platelet mean volume (Bld) [Entitic vol] 12.1 fL High 6.2-12.0 [facility] Comment on above: Performed By: #### L 501.1800, L500.2500, L100.0100 ####[facility] [address] [place], [address] Platelets (Bld) [#/Vol] 314 10*3/uL Normal 150-450 [facility] Comment on above: Performed By: #### L 501.1800, L500.2500, L100.0100 ####[facility] [address] [place], [address] RBC (Bld) [#/Vol] 2.82 10*6/uL Low 4.2-5.4 [facility] Comment on above: Performed By: #### L 501.1800, L500.2500, L100.0100 ####[facility] [address] [place], [address] RDW SD 62.2 fl High 35.1-43.9 [facility] Comment on above: Performed By: #### L 501.1800, L500.2500, L100.0100 ####[facility] [address] [place], [address] WBC (Bld) [#/Vol] 7.0 10*3/uL Normal 4.4-11.0 [facility] Comment on above: Performed By: #### L 501.1800, L500.2500, L100.0100 ####[facility] [address] [place], [address] Eosinophil percentageOrdered By: Mari Janine on 05-27-2024 Eosinophils/100 WBC (Bld) 4.3 % 0-5 [facility] Eosinophil percentage 4.3 % 0-5 [facility] Immature granulocytes/100 WB C Auto (Bld)Ordered By: Mari Janine on 05-27-2024 Immature granulocytes/100 WBC (Bld) 0.700 % 0.0-0.9 [facility] Automated immature granulocyte percentage 0.700 % 0.0-0.9 [facility] Lymphocytes Auto (Unsp spec) [#/Vol]Ordered By: Mari Janine on 05-27-2024 Absolute lymphocyte count 1.59 X10^3/uL 0.83-4.51 [facility] Lymphocytes/100 WBC Auto (Un sp spec)Ordered By: Mari Mehta on 05-27-2024 Automated lymphocyte count as percentage of total leukocytes 22.7 % 19-41 [facility] Monocyte percentageOrdered B y: Mari Mehta on 05-27-2024 Monocytes/100 WBC (Bld) 7.6 % 0-10 [facility] Monocyte percentage 7.6 % 0-10 [facility] Neutrophil percentageOrdered By: Mari Mehta on 05-27-2024 Neutrophils/100 WBC (Bld) 63.7 % 47-70 [facility] Neutrophil percentage 63.7 % 47-70 [facility] Nucleated red blood cell per centageOrdered By: Mari Mehta on 05-27-2024 Nucleated red blood cell percentage 0 % 0-5 [facility] HLA B27on 05-25-2024 HLA B27 Negative Normal . [facility] Comment on above: Result Comment: HLA- B*27 LiqtwojoZ16 allele interpretation for all loci based on IMGT/HLAdatabase version 3.51.0This test was developed and its performance characteristicsdetermined by [employer]. It has not been cleared or approvedby the Food and Drug Administration.The FDA has determined that such clearance or approval isnot necessary.[facility] CLIA ID Number [id number] test was performed using Polymerase Chain Reaction(PCR) and Sequence Specific Oligonucleotide Probes (SSOP)technique. Sequence Based Typing (SBT) may be used as asupplemental method when necessary.If you have questions, please call [facility] customer service or email at [email or web address].Performed at: [address] [place] [address] [id number] Director: Marie Nowak PhD, Phone: [phone] Performed By: #### L 3410.1400, L101.9900 ####[facility] [address] [place], [place], [id number] Basic Metabolic Profile (BMP )on 05-23-2024 BUN Normal 7-18 [facility] Comment on above: Order Comment: uto x 2 phleb nurse adela was notified. Result Comment: OM C ANCEL REQUEST Performed By: #### L 500.2500 ####[facility] [address] [place], [place], [id number] BUN/CRE Normal 10-20 [facility] Comment on above: Order Comment: uto x 2 phleb nurse adela was notified. Result Comment: OM C ANCEL REQUEST Performed By: #### L 500.2500 ####[facility] [address] [place], [address] CA,Total Normal 8.5-10.1 [facility] Comment on above: Order Comment: uto x 2 phleb nurse adela was notified. Result Comment: OM C ANCEL REQUEST Performed By: #### L 500.2500 ####[facility] [address] [place], [address] CL Normal 98-107 [facility] Comment on above: Order Comment: uto x 2 phleb nurse adela was notified. Result Comment: OM C ANCEL REQUEST Performed By: #### L 500.2500 ####[facility] [address] [place], [address] CO2 Normal 21.0-32.0 [facility] Comment on above: Order Comment: uto x 2 phleb nurse adela was notified. Result Comment: OM C ANCEL REQUEST Performed By: #### L 500.2500 ####[facility] [address] [place], [address] CREAT,SERUM Normal 0.55-1.02 [facility] Comment on above: Order Comment: uto x 2 phleb nurse adela was notified. Result Comment: OM C ANCEL REQUEST Performed By: #### L 500.2500 ####[facility] [address] [place], [address] EST GFR Normal >60 [facility] Comment on above: Order Comment: uto x 2 phleb nurse adela was notified. Result Comment: OM C ANCEL REQUEST Performed By: #### L 500.2500 ####[facility] [address] [place], [address] EST GFR - AA Normal >60 [facility] Comment on above: Order Comment: uto x 2 phleb nurse adela was notified. Result Comment: OM C ANCEL REQUEST Performed By: #### L 500.2500 ####[facility] [address] [place], [address] GAP Normal 5-15 [facility] Comment on above: Order Comment: uto x 2 phleb nurse adela was notified. Result Comment: OM C ANCEL REQUEST Performed By: #### L 500.2500 ####[facility] [address] [place], [address] GLU Normal 74-106 [facility] Comment on above: Order Comment: uto x 2 phleb nurse adela was notified. Result Comment: OM C ANCEL REQUEST Performed By: #### L 500.2500 ####[facility] [address] [place], [address] Potassium Normal 3.5-5.1 [facility] Comment on above: Order Comment: uto x 2 phleb nurse adela was notified. Result Comment: OM C ANCEL REQUEST Performed By: #### L 500.2500 ####[facility] [address] [place], [address] Basic Metabolic Profile (BMP) Normal 136-145 [facility] Comment on above: Order Comment: uto x 2 phleb nurse adela was notified. Result Comment: OM C ANCEL REQUEST Performed By: #### L 500.2500 ####[facility] [address] [place], [address] Modified Barium Swallow Stud yon 05-23-2024 Modified Barium Swallow Study Normal [facility] Basic Metabolic Profile (BMP )on 05-22-2024 BUN/CRE 22.8 RATIO High 10-20 [facility] Comment on above: Performed By: #### L 500.2500, L100.0500 ####[facility] [address] [place], [address] CA,Total 8.2 mg/dL Low 8.5-10.1 [facility] Comment on above: Performed By: #### L 500.2500, L100.0500 ####[facility] [address] [place], [address] Chloride [Moles/Vol] 111 mmol/L High 98-107 [facility] Comment on above: Performed By: #### L 500.2500, L100.0500 ####[facility] [address] [place], [address] CO2 [Moles/Vol] 27.0 mmol/L Normal 21.0-32.0 [facility] Comment on above: Performed By: #### L 500.2500, L100.0500 ####[facility] [address] [place], [address] Creatinine [Mass/Vol] 1.84 mg/dL High 0.55-1.02 [facility] Comment on above: Result Comment: The validity of the calculated GFR GFRAA in patients over70 years has not been determined. Clinical correlation isessential. Performed By: #### L 500.2500, L100.0500 ####[facility] [address] [place], [address] ECRCL 25.90 ml/min Normal [facility] Comment on above: Performed By: #### L 500.2500, L100.0500 ####[facility] [address] [place], [address] EST GFR - AA 34 mL/min Low >60 [facility] Comment on above: Result Comment: Afri can British GFR Calc Performed By: #### L 500.2500, L100.0500 ####[facility] [address] [place], [address] GAP 4 Low 5-15 [facility] Comment on above: Performed By: #### L 500.2500, L100.0500 ####[facility] [address] [place], [address] GFR/1.73 sq M.predicted among non-blacks MDRD (S/P/Bld) [Vol rate/Area] 28 mL/min/{1.73_m2} Low >60 [facility] Comment on above: Result Comment: Non- GFR Calc Performed By: #### L 500.2500, L100.0500 ####[facility] [address] [place], [address] Glucose [Mass/Vol] 87 mg/dL Normal 74-106 [facility] Comment on above: Performed By: #### L 500.2500, L100.0500 ####[facility] [address] [place], [address] Potassium [Moles/Vol] 4.2 mmol/L Normal 3.5-5.1 [facility] Comment on above: Performed By: #### L 500.2500, L100.0500 ####[facility] [address] [place], [address] Sodium [Moles/Vol] 142 mmol/L Normal 136-145 [facility] Comment on above: Performed By: #### L 500.2500, L100.0500 ####[facility] [address] [place], [address] Urea nitrogen [Mass/Vol] 42 mg/dL High 7-18 [facility] Comment on above: Performed By: #### L 500.2500, L100.0500 ####[facility] [address] [place], [address] CBC-Complete Blood Cnt No Di ffon 05-22-2024 Erythrocyte distribution width (RBC) [Ratio] 17.3 % High 11.6-14.6 [facility] Comment on above: Performed By: #### L 500.2500, L100.0500 ####[facility] [address] [place], [address] Hematocrit (Bld) [Volume fraction] 27.1 % Low 37-47 [facility] Comment on above: Performed By: #### L 500.2500, L100.0500 ####[facility] [address] [place], [address] Hemoglobin (Bld) [Mass/Vol] 8.1 g/dL Low 12.0-15.0 [facility] Comment on above: Performed By: #### L 500.2500, L100.0500 ####[facility] [address] [place], [address] MCH (RBC) [Entitic mass] 30.6 pg Normal 27.0-32.0 [facility] Comment on above: Performed By: #### L 500.2500, L100.0500 ####[facility] [address] [place], [address] MCHC (RBC) [Mass/Vol] 29.9 g/dL Low 32-36 [facility] Comment on above: Performed By: #### L 500.2500, L100.0500 ####[facility] [address] [place], [address] MCV (RBC) [Entitic vol] 102.3 fL High 81-99 [facility] Comment on above: Performed By: #### L 500.2500, L100.0500 ####[facility] [address] [place], [address] Platelet mean volume (Bld) [Entitic vol] 12.2 fL High 6.2-12.0 [facility] Comment on above: Performed By: #### L 500.2500, L100.0500 ####[facility] [address] [place], [address] Platelets (Bld) [#/Vol] 392 10*3/uL Normal 150-450 [facility] Comment on above: Performed By: #### L 500.2500, L100.0500 ####[facility] [address] [place], [address] RBC (Bld) [#/Vol] 2.65 10*6/uL Low 4.2-5.4 [facility] Comment on above: Performed By: #### L 500.2500, L100.0500 ####[facility] [address] [place], [address] RDW SD 64.2 fl High 35.1-43.9 [facility] Comment on above: Performed By: #### L 500.2500, L100.0500 ####[facility] [address] [place], [address] WBC (Bld) [#/Vol] 5.7 10*3/uL Normal 4.4-11.0 [facility] Comment on above: Performed By: #### L 500.2500, L100.0500 ####[facility] [address] [place], [address] BRCon 05-20-2024 RC Normal [facility] Comment on above: Result Comment: [id number] ABN RC TRANSFUSED 05/20/24 [id number] ABN RC NOT AVAILABLE Performed By: #### B TS, BR, L100.0600 ####[facility] [address] [place], [address] Basic Metabolic Profile (BMP )on 05-20-2024 BUN/CRE 25.4 RATIO High 10-20 [facility] Comment on above: Performed By: #### L 500.2500 ####[facility] [address] [place], [address] CA,Total 8.5 mg/dL Normal 8.5-10.1 [facility] Comment on above: Performed By: #### L 500.2500 ####[facility] [address] [place], [address] Chloride [Moles/Vol] 111 mmol/L High 98-107 [facility] Comment on above: Performed By: #### L 500.2500 ####[facility] [address] [place], [address] CO2 [Moles/Vol] 29.0 mmol/L Normal 21.0-32.0 [facility] Comment on above: Performed By: #### L 500.2500 ####[facility] [address] [place], [address] Creatinine [Mass/Vol] 1.89 mg/dL High 0.55-1.02 [facility] Comment on above: Result Comment: The validity of the calculated GFR GFRAA in patients over70 years has not been determined. Clinical correlation isessential. Performed By: #### L 500.2500 ####[facility] [address] [place], [address] ECRCL 25.21 ml/min Normal [facility] Comment on above: Performed By: #### L 500.2500 ####[facility] [address] [place], [address] EST GFR - AA 33 mL/min Low >60 [facility] Comment on above: Result Comment: Afri can British GFR Calc Performed By: #### L 500.2500 ####[facility] [address] [place], [address] GAP 4 Low 5-15 [facility] Comment on above: Performed By: #### L 500.2500 ####[facility] [address] [place], [address] GFR/1.73 sq M.predicted among non-blacks MDRD (S/P/Bld) [Vol rate/Area] 27 mL/min/{1.73_m2} Low >60 [facility] Comment on above: Result Comment: Non- GFR Calc Performed By: #### L 500.2500 ####[facility] [address] [place], [address] Glucose [Mass/Vol] 95 mg/dL Normal 74-106 [facility] Comment on above: Performed By: #### L 500.2500 ####[facility] [address] [place], [address] Potassium [Moles/Vol] 4.6 mmol/L Normal 3.5-5.1 [facility] Comment on above: Performed By: #### L 500.2500 ####[facility] [address] [place], [address] Sodium [Moles/Vol] 144 mmol/L Normal 136-145 [facility] Comment on above: Performed By: #### L 500.2500 ####[facility] [address] [place], [address] Urea nitrogen [Mass/Vol] 48 mg/dL High 7-18 [facility] Comment on above: Performed By: #### L 500.2500 ####[facility] [address] [place], [address] HH, Hemoglobin AND Hematocri ton 05-20-2024 Hematocrit (Bld) [Volume fraction] 25.0 % Low 37-47 [facility] Comment on above: Performed By: #### B GIN, [facility], L100.0600 ####[facility] [address] [place], [address] Hemoglobin (Bld) [Mass/Vol] 7.4 g/dL Low 12.0-15.0 [facility] Comment on above: Performed By: #### B GIN, BR, L100.0600 ####[facility] [address] [place], [address] Stool Occult Blood iFOBon STOB Normal [facility] Comment on above: Performed By: #### M 100.7900 ####[facility] [address] [place], [address] Type AND Screenon 05-20-2024 ABO and Rh group Nom (Bld) Blood group AB Rh(D) positive Normal [facility] Comment on above: Order Comment: CMV N EG? NNumber of units to transfuse: 1Is there an orthostatic change in pt's BP(SBP drop>10mmHg)? YIs pt's HR > 100 bpm? NReason for Ordering Blood: AcuteAre the blood/blood products to be transfused? YIs the patient having/had surgery? Hanna Rodriges Performed By: #### B GIN, [facility], L100.0600 ####[facility] [address] [place], [address] Ab SCREEN GEL Negative Normal [facility] Comment on above: Order Comment: CMV N EG? NNumber of units to transfuse: 1Is there an orthostatic change in pt's BP(SBP drop>10mmHg)? YIs pt's HR > 100 bpm? NReason for Ordering Blood: AcuteAre the blood/blood products to be transfused? YIs the patient having/had surgery? Hanna Rodriges Performed By: #### B GIN, [facility], L100.0600 ####[facility] [address] [place], [address] ALP [Catalytic activity/Vol] Ordered By: Mari Mehta on 05-19-2024 Serum or plasma alkaline phosphatase measurement 78 U/L 45-117 [facility] ALT [Catalytic activity/Vol] Ordered By: Mari Mehta on 05-19-2024 Serum or plasma alanine aminotransferase (ALT) measurement 24 U/L 13-56 [facility] Basic Metabolic Profile (BMP )on 05-19-2024 BUN/CRE 32.5 RATIO High 10-20 [facility] Comment on above: Performed By: #### L 501.5200, L500.2500, L100.0500 ####[facility] [address] [place], [address] CA,Total 7.9 mg/dL Low 8.5-10.1 [facility] Comment on above: Performed By: #### L 501.5200, L500.2500, L100.0500 ####[facility] [address] [place], [address] Chloride [Moles/Vol] 112 mmol/L High 98-107 [facility] Comment on above: Performed By: #### L 501.5200, L500.2500, L100.0500 ####[facility] [address] [place], [address] CO2 [Moles/Vol] 27.0 mmol/L Normal 21.0-32.0 [facility] Comment on above: Performed By: #### L 501.5200, L500.2500, L100.0500 ####[facility] [address] [place], [address] Creatinine [Mass/Vol] 1.69 mg/dL High 0.55-1.02 [facility] Comment on above: Result Comment: The validity of the calculated GFR GFRAA in patients over70 years has not been determined. Clinical correlation isessential. Performed By: #### L 501.5200, L500.2500, L100.0500 ####[facility] [address] [place], [address] ECRCL 28.20 ml/min Normal [facility] Comment on above: Performed By: #### L 501.5200, L500.2500, L100.0500 ####[facility] [address] [place], [address] EST GFR - AA 37 mL/min Low >60 [facility] Comment on above: Result Comment: Afri can [place] GFR Calc Performed By: #### L 501.5200, L500.2500, L100.0500 ####[facility] [address] [place], [address] GAP 6 Normal 5-15 [facility] Comment on above: Performed By: #### L 501.5200, L500.2500, L100.0500 ####[facility] [address] [place], [address] GFR/1.73 sq M.predicted among non-blacks MDRD (S/P/Bld) [Vol rate/Area] 31 mL/min/{1.73_m2} Low >60 [facility] Comment on above: Result Comment: Non- GFR Calc Performed By: #### L 501.5200, L500.2500, L100.0500 ####[facility] [address] [place], [address] Glucose [Mass/Vol] 89 mg/dL Normal 74-106 [facility] Comment on above: Performed By: #### L 501.5200, L500.2500, L100.0500 ####[facility] [address] [place], [address] Potassium [Moles/Vol] 4.2 mmol/L Normal 3.5-5.1 [facility] Comment on above: Performed By: #### L 501.5200, L500.2500, L100.0500 ####[facility] [address] [place], [address] Sodium [Moles/Vol] 145 mmol/L Normal 136-145 [facility] Comment on above: Performed By: #### L 501.5200, L500.2500, L100.0500 ####[facility] [address] [place], [address] Urea nitrogen [Mass/Vol] 55 mg/dL High 7-18 [facility] Comment on above: Performed By: #### L 501.5200, L500.2500, L100.0500 ####[facility] [address] [place], [address] Bilirubin directOrdered By: Mari Mehta on 05-19-2024 Bilirubin.direct [Mass/Vol] 0.16 mg/dL 0.00-0.30 [facility] Bilirubin, totalOrdered By: Mari Landeroskunal on 05-19-2024 Bilirubin [Mass/Vol] 0.40 mg/dL 0.20-1.00 [facility] Bilirubin, total 0.40 mg/dL 0.20-1.00 [facility] Bilirubin.direct [Mass/Vol]O rdered By: Mari Landeroskunal on 05-19-2024 Bilirubin direct 0.16 mg/dL 0.00-0.30 [facility] C-reactive protein measureme nt by high sensitivity methodOrdered By: Mari Mehta on 05-19-2024 C-reactive protein measurement by high sensitivity method 80.50 mg/L High 0.0-3.0 [facility] C-reactive protein measurement by high sensitivity method 80.50 mg/L High 0.0-3.0 [facility] CBC-Complete Blood Cnt No Di ffon 05-19-2024 Erythrocyte distribution width (RBC) [Ratio] 17.2 % High 11.6-14.6 [facility] Comment on above: Performed By: #### L 501.5200, L500.2500, L100.0500 ####[facility] [address] [place], [address] Hematocrit (Bld) [Volume fraction] 23.4 % Low 37-47 [facility] Comment on above: Performed By: #### L 501.5200, L500.2500, L100.0500 ####[facility] [address] [place], [address] Hemoglobin (Bld) [Mass/Vol] 7.0 g/dL Low 12.0-15.0 [facility] Comment on above: Performed By: #### L 501.5200, L500.2500, L100.0500 ####[facility] [address] [place], [address] MCH (RBC) [Entitic mass] 30.7 pg Normal 27.0-32.0 [facility] Comment on above: Performed By: #### L 501.5200, L500.2500, L100.0500 ####[facility] [address] [place], [address] MCHC (RBC) [Mass/Vol] 29.9 g/dL Low 32-36 [facility] Comment on above: Performed By: #### L 501.5200, L500.2500, L100.0500 ####[facility] [address] [place], [address] MCV (RBC) [Entitic vol] 102.6 fL High 81-99 [facility] Comment on above: Performed By: #### L 501.5200, L500.2500, L100.0500 ####[facility] [id number] [place], [address] Platelet mean volume (Bld) [Entitic vol] 12.6 fL High 6.2-12.0 [facility] Comment on above: Performed By: #### L 501.5200, L500.2500, L100.0500 ####[facility] [address] [place], [address] Platelets (Bld) [#/Vol] 441 10*3/uL Normal 150-450 [facility] Comment on above: Performed By: #### L 501.5200, L500.2500, L100.0500 ####[facility] [address] [place], [address] RBC (Bld) [#/Vol] 2.28 10*6/uL Low 4.2-5.4 [facility] Comment on above: Performed By: #### L 501.5200, L500.2500, L100.0500 ####[facility] [address] [place], [address] RDW SD 64.2 fl High 35.1-43.9 [facility] Comment on above: Performed By: #### L 501.5200, L500.2500, L100.0500 ####[facility] [address] [place], [address] WBC (Bld) [#/Vol] 6.3 10*3/uL Normal 4.4-11.0 [facility] Comment on above: Performed By: #### L 501.5200, L500.2500, L100.0500 ####[facility] [address] [place], [address] CRPon 05-19-2024 C-REACTIVE PROT 80.50 mg/L High 0.0-3.0 [facility] Comment on above: Result Comment: C-Re active Protein (CRP) provides useful information for thediagnosis, therapy and monitoring of inflammatory processesand associated diseases. For the evaluation of Relative Riskfor Cardiovascular Disease, a High Sensitivity CRP (HSCRP)should be ordered. Performed By: #### L 501.6710, L503.6030, L501.5200, L501.2300, L500.3400 ####[facility] [address] [place], [address] ESR (Bld) [Velocity]Ordered By: Mari Mehta on 05-19-2024 Erythrocyte sedimentation rate 32 mm/hr High 0-30 [facility] Erythrocyte Sed Rateon 05-19 SED RATE 32 mm/hr High 0-30 [facility] Comment on above: Performed By: #### L 3410.1400, L101.9900 ####[facility] [address] [place], [address] Erythrocyte sedimentation ra teOrdered By: Mari Mehta on 05-19-2024 ESR (Bld) [Velocity] 32 mm/h High 0-30 [facility] Human leukocyte antigen (HLA ) B27 typingOrdered By: Mari Mehta on 05-19-2024 Human leukocyte antigen (HLA) B27 typing Negative . [facility] Iron (Unsp spec) [Mass/Mass] Ordered By: Mari Mehta on 05-19-2024 Iron measurement (mass/mass) 47 ug/dL Low 50-170 [facility] Iron measurement (mass/mass) Ordered By: Mari Mehta on 05-19-2024 Iron (Unsp spec) [Mass/Mass] 47 ug/dL Low 50-170 [facility] Iron saturation [Mass fracti on]Ordered By: Mari Mehta on 05-19-2024 Serum or plasma iron saturation measurement (mass fraction) 19.9 % 15.0-55.0 [facility] Iron+Iron Binding Capacityon 05-19-2024 Iron [Mass/Vol] 47 ug/dL Low 50-170 [facility] Comment on above: Performed By: #### L 501.6710, L503.6030, L501.5200, L501.2300, L500.3400 ####[facility] [address] [place], [address] IRON SATURATION 19.9 Normal 15.0-55.0 [facility] Comment on above: Performed By: #### L 501.6710, L503.6030, L501.5200, L501.2300, L500.3400 ####[facility] [address] [place], [address] TIBC 236 ug/dL Low 250-450 [facility] Comment on above: Performed By: #### L 501.6710, L503.6030, L501.5200, L501.2300, L500.3400 ####[facility] [address] [place], [address] Liver Profileon 05-19-2024 Albumin [Mass/Vol] 2.2 g/dL Low 3.2-5.0 [facility] Comment on above: Performed By: #### L 501.6710, L503.6030, L501.5200, L501.2300, L500.3400 ####[facility] [address] [place], [address] ALK P 78 U/L Normal 45-117 [facility] Comment on above: Performed By: #### L 501.6710, L503.6030, L501.5200, L501.2300, L500.3400 ####[facility] [address] [place], [address] ALT [Catalytic activity/Vol] 24 U/L Normal 13-56 [facility] Comment on above: Performed By: #### L 501.6710, L503.6030, L501.5200, L501.2300, L500.3400 ####[facility] [address] [place], [address] AST [Catalytic activity/Vol] 19 U/L Normal 15-37 [facility] Comment on above: Performed By: #### L 501.6710, L503.6030, L501.5200, L501.2300, L500.3400 ####[facility] [address] [place], [address] Bilirubin [Mass/Vol] 0.40 mg/dL Normal 0.20-1.00 [facility] Comment on above: Result Comment: For patients on eltrombopag therapy, use of Dimension [place] TBIL is not recommended. Performed By: #### L 501.6710, L503.6030, L501.5200, L501.2300, L500.3400 ####[facility] [address] [place], [address] Bilirubin.direct [Mass/Vol] 0.16 mg/dL Normal 0.00-0.30 [facility] Comment on above: Performed By: #### L 501.6710, L503.6030, L501.5200, L501.2300, L500.3400 ####[facility] [address] [place], [address] Globulin (S) [Mass/Vol] 3.7 g/dL Normal 2.2-4.2 [facility] Comment on above: Performed By: #### L 501.6710, L503.6030, L501.5200, L501.2300, L500.3400 ####[facility] [address] [place], [address] T PROT 5.9 g/dL Low 6.4-8.2 [facility] Comment on above: Performed By: #### L 501.6710, L503.6030, L501.5200, L501.2300, L500.3400 ####[facility] [address] [place], [address] Lower GI hemoglobin IA Ql (S tl)Ordered By: Mair Mehta on 05-19-2024 Stool gastrointestinal hemoglobin detection by immunologic method Positive Abnormal [facility] Magnesiumon 05-19-2024 Magnesium [Mass/Vol] 2.2 mg/dL Normal 1.6-2.6 [facility] Comment on above: Performed By: #### L 501.6710, L503.6030, L501.5200, L501.2300, L500.3400 ####[facility] [address] [place], [address] Magnesium [Mass/Vol] 2.1 mg/dL Normal 1.6-2.6 [facility] Comment on above: Performed By: #### L 501.5200, L500.2500, L100.0500 ####[facility] [address] [place], [address] Magnesium measurementOrdered By: Mari Mehta on 05-19-2024 Magnesium [Mass/Vol] 2.2 mg/dL 1.6-2.6 [facility] Magnesium measurement 2.2 mg/dL 1.6-2.6 [facility] No Panel InformationOrdered By: Mari Mehta on 05-19-2024 19 U/L 15-37 [facility] Phosphoruson 05-19-2024 Phosphate [Mass/Vol] 3.6 mg/dL Normal 2.5-4.9 [facility] Comment on above: Performed By: #### L 501.6710, L503.6030, L501.5200, L501.2300, L500.3400 ####[facility] [address] [place], [place], [address] Phosphate [Mass/Vol] 3.9 mg/dL Normal 2.5-4.9 [facility] Comment on above: Performed By: #### L 501.2300 ####[facility] [address] [place], [place], [address] Serum globulin measurementOr dered By: Mari Mehta on 05-19-2024 Globulin (S) [Mass/Vol] 3.7 g/dL 2.2-4.2 [facility] Serum globulin measurement 3.7 g/dL 2.2-4.2 [facility] Serum or plasma alanine huertas otransferase (ALT) measurementOrdered By: Mari Mehta on 05-19-2024 ALT [Catalytic activity/Vol] 24 U/L 13-56 [facility] Serum or plasma alkaline mariya sphatase measurementOrdered By: Mari Mehta on 05-19-2024 ALP [Catalytic activity/Vol] 78 U/L 45-117 [facility] Serum or plasma iron saturat ion measurement (mass fraction)Ordered By: Mari Mehta on 05-19-2024 Iron saturation [Mass fraction] 19.9 % 15.0-55.0 [facility] Stool gastrointestinal hemog lobin detection by immunologic methodOrdered By: Mari Mehta on 05-19-2024 Lower GI hemoglobin IA Ql (Stl) Positive Abnormal [facility] TIBCOrdered By: Mari Mehta on 05-19-2024 TIBC 236 ug/dL Low 250-450 [facility] Thoracic Spine 3 Viewson Thoracic Spine 3 Views Normal [facility] Total proteinOrdered By: Shirley Mehta on 05-19-2024 Protein [Mass/Vol] 5.9 g/dL Low 6.4-8.2 [facility] Total protein 5.9 g/dL Low 6.4-8.2 [facility] GLUCOSE POCon 05-18-2024 Glucose [Mass/Vol] 94 mg/dL 70 - 99 mg/dL [facility] Glucose [Mass/Vol] 93 mg/dL 70 - 99 mg/dL [facility] POC Sample Type CAPBL [facility] Glucose [Mass/Vol] 91 mg/dL 70 - 99 mg/dL [facility] POC [facility] MAGNESIUMon 05-18-2024 Magnesium [Mass/Vol] 1.9 mg/dL 1.6 - 2 .6 mg/dL [facility] Magnesium [Mass/Vol] 1.9 mg/dL Normal 1.6-2.6 [facility] Comment on above: Performed By: #### M OMER, CHEMO7, IPB, CKB, TRIG, LDO #### [facility] (DEFAULT) [address] [place] [address] No Panel Informationon 05-18 Interpretation and review of laboratory results Normal [facility] PHOSPHATE, INORGANICon 05-18 Phosphate [Mass/Vol] 4.1 mg/dL 2.2 - 4 .6 mg/dL [facility] Phosphorous 4.1 mg/dL Normal 2.2-4.6 [facility] Comment on above: Performed By: #### M OMER, RITAM7, IPB, CKB, TRIG, LDO #### [facility] (DEFAULT) [address] [place] [address] CBC,PLATELETSon 05-17-2024 Erythrocyte distribution width (RBC) [Ratio] 17.2 % High 10.8 - 14.9 % [facility] Hematocrit (Bld) [Volume fraction] 25 % Low 34.9 - 44.3 % [facility] Hemoglobin (Bld) [Mass/Vol] 7.4 g/dL Low 11.4 - 15.2 g/dL [facility] Interpretation and review of laboratory results Abnormal [facility] MCH (RBC) [Entitic mass] 30.3 pg 25.9 - 33.9 pg [facility] MCHC (RBC) [Mass/Vol] 29.6 g/dL Low 31.4 - 35.9 g/dL [facility] MCV (RBC) [Entitic vol] 102.5 fL High 79.6 - 97.7 fL [facility] Platelet mean volume (Bld) [Entitic vol] 12 fL 8.5 - 12.2 fL [facility] Platelets (Bld) [#/Vol] 428 10*3/uL High 150 - 393 K/uL [facility] RBC (Bld) [#/Vol] 2.44 10*6/uL Low [facility] WBC (Bld) [#/Vol] 8.81 10*3/uL 3.99 - 11.19 K/uL [facility] Hematocrit (Bld) [Volume fraction] 25.0 % Low 34.9-44.3 [facility] Comment on above: Performed By: #### M OMER, CHM7, IPB, CKB, TRIG, LDO #### [facility] (DEFAULT) [address] [address] Hemoglobin (Bld) [Mass/Vol] 7.4 g/dL Low 11.4-15.2 [facility] Comment on above: Performed By: #### M OMER, CHM7, IPB, CKB, TRIG, LDO #### [facility] (DEFAULT) [address] [address] MCV (RBC) [Entitic vol] 102.5 fL High 79.6-97.7 [facility] Comment on above: Performed By: #### M OMER, CHM7, IPB, CKB, TRIG, LDO #### [facility] (DEFAULT) [address] [address] Mean Cell Hgb 30.3 pg Normal 25.9-33.9 [facility] Comment on above: Performed By: #### M GO, CHM7, IPB, CKB, TRIG, LDO #### [facility] (DEFAULT) [address] [place] [address] Mean Cell Hgb Conc 29.6 g/dL Low 31.4-35.9 [facility] Comment on above: Performed By: #### M GO, CHM7, IPB, CKB, TRIG, LDO #### [facility] (DEFAULT) [address] [place] [address] Platelet mean volume (Bld) [Entitic vol] 12.0 fL Normal 8.5-12.2 [facility] Comment on above: Performed By: #### M GO, CHM7, IPB, CKB, TRIG, LDO #### [place] [facility] (DEFAULT) [address] [place] [address] Platelets (Bld) [#/Vol] 428 10*3/uL High 150-393 [facility] Comment on above: Performed By: #### M GO, CHM7, IPB, CKB, TRIG, LDO #### [place] [facility] (DEFAULT) [address] [place] [address] RBC (Bld) [#/Vol] 2.44 10*6/uL Low 3.91-5.04 [facility] Comment on above: Performed By: #### M GO, CHM7, IPB, CKB, TRIG, LDO #### [facility] (DEFAULT) [address] [place] [address] RBC Distribution 17.2 % High 10.8-14.[address] [facility] Comment on above: Performed By: #### M GO, CHM7, IPB, CKB, TRIG, LDO #### [facility] (DEFAULT) [address] [place] [address] WBC (Bld) [#/Vol] 8.81 10*3/uL Normal 3.99-11.19 [facility] Comment on above: Performed By: #### M GO, CHM7, IPB, CKB, TRIG, LDO #### [facility] (DEFAULT) [address] [place] [address] CHEM 7 (LYTES,BUN,CREA,GLUC) on 05-17-2024 Anion gap [Moles/Vol] 11 mmol/L 7 - 17 mmol/L [facility] Chloride [Moles/Vol] 106 mmol/L 98 - 10 8 mmol/L [facility] CO2 [Moles/Vol] 28 mmol/L 21 - 31 mmol/L [facility] Creatinine [Mass/Vol] 1.68 mg/dL High 0.50 - 1.20 mg/dL [facility] eGFR, CKD-EPI, Female 30 Low - PINF [facility] Glucose [Mass/Vol] 107 mg/dL High 70 - 99 mg/dL [facility] Interpretation and review of laboratory results Abnormal [facility] Osmolality Calc [Osmolality] 313 High [facility] Potassium [Moles/Vol] 4.2 mmol/L 3.5 - 5.0 mmol/L [facility] Sodium [Moles/Vol] 141 mmol/L 135 - 145 mmol/L [facility] Urea nitrogen [Mass/Vol] 61 mg/dL High 7 - 25 mg/dL [facility] Urea nitrogen/Creatinine [Mass ratio] 36 mg/mg [facility] Anion gap [Moles/Vol] 11 mmol/L Normal 7-17 [facility] Comment on above: Performed By: #### M OMER, CHM7, IPB, CKB, TRIG, LDO #### [facility] (DEFAULT) [address] [place] [address] Chloride [Moles/Vol] 106 mmol/L Normal 98-108 [facility] Comment on above: Performed By: #### M GO, CHM7, IPB, CKB, TRIG, LDO #### [facility] (DEFAULT) [address] [place] [address] CO2 [Moles/Vol] 28 mmol/L Normal 21-31 [facility] Comment on above: Performed By: #### M GO, CHM7, IPB, CKB, TRIG, LDO #### [facility] (DEFAULT) [address] [place] [address] Creatinine [Mass/Vol] 1.68 mg/dL High 0.50-1.20 [facility] Comment on above: Performed By: #### M GO, CHM7, IPB, CKB, TRIG, LDO #### [facility] (DEFAULT) [address] [place] [address] GFR/1.73 sq M.predicted among non-blacks MDRD (S/P/Bld) [Vol rate/Area] 30 mL/min/{1.73_m2} Low >=60 [facility] Comment on above: Result Comment: Repo rted eGFR is based on the CKD-EPI 2020 equation using creatinine, age, and sex. Performed By: #### M GO, CHM7, IPB, CKB, TRIG, LDO #### [facility] (DEFAULT) [address] [place] [address] Glucose [Mass/Vol] 107 mg/dL High 70-99 [facility] Comment on above: Performed By: #### M GO, CHM7, IPB, CKB, TRIG, LDO #### [facility] (DEFAULT) [address] [place] [address] Osmolality [Osmolality] 313 mosm/kg High 278-305 [facility] Comment on above: Performed By: #### M GO, CHM7, IPB, CKB, TRIG, LDO #### [facility] (DEFAULT) [address] [place] [address] Potassium [Moles/Vol] 4.2 mmol/L Normal 3.5-5.0 [facility] Comment on above: Performed By: #### M GO, CHM7, IPB, CKB, TRIG, LDO #### [facility] (DEFAULT) [address] [place] [address] Sodium [Moles/Vol] 141 mmol/L Normal 135-145 [facility] Comment on above: Performed By: #### M GO, CHM7, IPB, CKB, TRIG, LDO #### [facility] (DEFAULT) [address] [place] [address] Urea nitrogen [Mass/Vol] 61 mg/dL High 7-25 [facility] Comment on above: Performed By: #### M GO, CHM7, IPB, CKB, TRIG, LDO #### [facility] (DEFAULT) [address] [place] [address] Urea nitrogen/Creatinine [Mass ratio] 36 mg/mg Normal [facility] Comment on above: Performed By: #### M GO, CHM7, IPB, CKB, TRIG, LDO #### [facility] (DEFAULT) [address] [place] [address] GLUCOSE POCon 05-17-2024 Glucose [Mass/Vol] 99 mg/dL 70 - 99 mg/dL [facility] POC Sample Type CAPBL [facility] Glucose [Mass/Vol] 106 mg/dL High 70 - 99 mg/dL [facility] Interpretation and review of laboratory results Abnormal [facility] POC Sample Type CAPBL [facility] Glucose [Mass/Vol] 103 mg/dL High 70 - 99 mg/dL [facility] Interpretation and review of laboratory results Abnormal [facility] POC Sample Type CAPBL [facility] Glucose [Mass/Vol] 104 mg/dL High 70 - 99 mg/dL [facility] Interpretation and review of laboratory results Abnormal [facility] POC Sample Type [facility] 05-17-2024 Magnesium [Mass/Vol] 1.9 mg/dL 1.6 - 2 .6 mg/dL [facility] Magnesium [Mass/Vol] 1.9 mg/dL Normal 1.6-2.6 [facility] Comment on above: Performed By: #### M GO, CHM7, IPB, CKB, TRIG, LDO #### [facility] (DEFAULT) [address] [place] [address] No Panel Informationon 05-17 Interpretation and review of laboratory results Normal [facility] PHOSPHATE, INORGANICon 05-17 Phosphate [Mass/Vol] 3.6 mg/dL 2.2 - 4 .6 mg/dL [facility] Phosphorous 3.6 mg/dL Normal 2.2-4.6 [facility] Comment on above: Performed By: #### M GO, CHM7, IPB, CKB, TRIG, LDO #### [facility] (DEFAULT) [address] [place] [address] RF videography Hypopharynx a nd Esophagus Views W liquid and paste contrast PO during swallowingon 05-17-2024 RADIOLOGY RADIOLOGY [facility] Radiology Study observation (narrative) [facility] SPEECH MODIFIED BARIUM SWALL OWon 05-17-2024 [facility] XR FLUORO MODIFIED BARIUM SW ALLOW [...] have reviewed and approved this report. Normal [facility] CBC,PLATELETSon 05-16-2024 Erythrocyte distribution width (RBC) [Ratio] 17.7 % High 10.8 - 14.9 % [facility] Hematocrit (Bld) [Volume fraction] 26.1 % Low 34.9 - 44.3 % [facility] Hemoglobin (Bld) [Mass/Vol] 7.8 g/dL Low 11.4 - 15.2 g/dL [facility] Interpretation and review of laboratory results Abnormal [facility] MCH (RBC) [Entitic mass] 30.4 pg 25.9 - 33.9 pg [facility] MCHC (RBC) [Mass/Vol] 29.9 g/dL Low 31.4 - 35.9 g/dL [facility] MCV (RBC) [Entitic vol] 101.6 fL High 79.6 - 97.7 fL [facility] Platelet mean volume (Bld) [Entitic vol] 11.9 fL 8.5 - 12.2 fL [facility] Platelets (Bld) [#/Vol] 444 10*3/uL High 150 - 393 K/uL [facility] RBC (Bld) [#/Vol] 2.57 10*6/uL Low [facility] WBC (Bld) [#/Vol] 9.66 10*3/uL 3.99 - 11.19 K/uL [facility] Hematocrit (Bld) [Volume fraction] 26.1 % Low 34.9-44.3 [facility] Comment on above: Performed By: #### M GO, CHM7, IPB, CKB, TRIG, LDO #### [facility] (DEFAULT) [address] [place] [address] Hemoglobin (Bld) [Mass/Vol] 7.8 g/dL Low 11.4-15.2 [facility] Comment on above: Performed By: #### M GO, CHM7, IPB, CKB, TRIG, LDO #### [facility] (DEFAULT) [address] [place] [address] MCV (RBC) [Entitic vol] 101.6 fL High 79.6-97.7 [facility] Comment on above: Performed By: #### M GO, CHM7, IPB, CKB, TRIG, LDO #### [facility] (DEFAULT) [address] [place] [address] Mean Cell Hgb 30.4 pg Normal 25.9-33.9 [facility] Comment on above: Performed By: #### M GO, CHM7, IPB, CKB, TRIG, LDO #### [facility] (DEFAULT) [address] [place] [address] Mean Cell Hgb Conc 29.9 g/dL Low 31.4-35.9 [facility] Comment on above: Performed By: #### M GO, CHM7, IPB, CKB, TRIG, LDO #### [facility] (DEFAULT) [address] [place] [address] Platelet mean volume (Bld) [Entitic vol] 11.9 fL Normal 8.5-12.2 [facility] Comment on above: Performed By: #### M GO, CHM7, IPB, CKB, TRIG, LDO #### [facility] (DEFAULT) [address] [place] [address] Platelets (Bld) [#/Vol] 444 10*3/uL High 150-393 [facility] Comment on above: Performed By: #### M GO, CHM7, IPB, CKB, TRIG, LDO #### [facility] (DEFAULT) [address] [place] [address] RBC (Bld) [#/Vol] 2.57 10*6/uL Low 3.91-5.04 [facility] Comment on above: Performed By: #### M GO, CHM7, IPB, CKB, TRIG, LDO #### [facility] (DEFAULT) [address] [place] [address] RBC Distribution 17.7 % High 10.8-14.[address] [facility] Comment on above: Performed By: #### M GO, CHM7, IPB, CKB, TRIG, LDO #### [facility] (DEFAULT) [address] [place] [address] WBC (Bld) [#/Vol] 9.66 10*3/uL Normal 3.99-11.19 [facility] Comment on above: Performed By: #### M GO, CHM7, IPB, CKB, TRIG, LDO #### [facility] (DEFAULT) [address] [place] [address] CHEM 7 (LYTES,BUN,CREA,GLUC) on 05-16-2024 Anion gap [Moles/Vol] 13 mmol/L 7 - 17 mmol/L [facility] Chloride [Moles/Vol] 105 mmol/L 98 - 10 8 mmol/L [facility] CO2 [Moles/Vol] 28 mmol/L 21 - 31 mmol/L [facility] Creatinine [Mass/Vol] 1.69 mg/dL High 0.50 - 1.20 mg/dL [facility] eGFR, CKD-EPI, Female 30 Low - PINF [facility] Glucose [Mass/Vol] 120 mg/dL High 70 - 99 mg/dL [facility] Interpretation and review of laboratory results Abnormal [facility] Osmolality Calc [Osmolality] 315 High [facility] Potassium [Moles/Vol] 4.3 mmol/L 3.5 - 5.0 mmol/L [facility] Sodium [Moles/Vol] 142 mmol/L 135 - 145 mmol/L [facility] Urea nitrogen [Mass/Vol] 60 mg/dL High 7 - 25 mg/dL [facility] [facility]/Creatinine [Mass ratio] 36 mg/mg [facility] Anion gap [Moles/Vol] 13 mmol/L Normal 7-17 [facility] Comment on above: Performed By: #### R ES #### [facility] (DEFAULT) [address] [address] Chloride [Moles/Vol] 105 mmol/L Normal 98-108 [facility] Comment on above: Performed By: #### R ES #### [facility] (DEFAULT) [address] [place] [address] CO2 [Moles/Vol] 28 mmol/L Normal 21-31 [facility] Comment on above: Performed By: #### R ES #### [facility] (DEFAULT) [address] [place] [address]82 Creatinine [Mass/Vol] 1.69 mg/dL High 0.50-1.20 [facility] Comment on above: Performed By: #### R ES #### [facility] (DEFAULT) [address] [address] GFR/1.73 sq M.predicted among non-blacks MDRD (S/P/Bld) [Vol rate/Area] 30 mL/min/{1.73_m2} Low >=60 [facility] Comment on above: Result Comment: Repo rted eGFR is based on the CKD-EPI 2020 equation using creatinine, age, and sex. Performed By: #### R ES #### [facility] (DEFAULT) [address] [place] [address]662 Glucose [Mass/Vol] 120 mg/dL High 70-99 [facility] Comment on above: Performed By: #### R ES #### [facility] (DEFAULT) [address] [place] [address]82 Osmolality [Osmolality] 315 mosm/kg High 278-305 [facility] Comment on above: Performed By: #### R ES #### [facility] (DEFAULT) [address] [place] [address] Potassium [Moles/Vol] 4.3 mmol/L Normal 3.5-5.0 [facility] Comment on above: Performed By: #### R ES #### [facility] (DEFAULT) [address] [place] [address]75 Sodium [Moles/Vol] 142 mmol/L Normal 135-145 [facility] Comment on above: Performed By: #### R ES #### [facility] (DEFAULT) [address] [place] [address] 16562 Urea nitrogen [Mass/Vol] 60 mg/dL High 7-25 [facility] Comment on above: Performed By: #### R ES #### [facility] (DEFAULT) [address] [place] [address]225 Urea nitrogen/Creatinine [Mass ratio] 36 mg/mg Normal [facility] Comment on above: Performed By: #### R ES #### [facility] (DEFAULT) [address] [address] GLUCOSE POCon 05-16-2024 Glucose [Mass/Vol] 117 mg/dL High 70 - 99 mg/dL [facility] Interpretation and review of laboratory results Abnormal [facility] POC Sample Type CAPBL [facility] Glucose [Mass/Vol] 101 mg/dL High 70 - 99 mg/dL [facility] Interpretation and review of laboratory results Abnormal [facility] POC Sample Type CAPBL [facility] Glucose [Mass/Vol] 96 mg/dL 70 - 99 mg/dL [facility] POC Sample Type CAPBL [facility] Glucose [Mass/Vol] 100 mg/dL High 70 - 99 mg/dL [facility] Interpretation and review of laboratory results Abnormal [facility] POC Sample Type CAPBL [facility] MAGNESIUMon 05-16-2024 Magnesium [Mass/Vol] 1.8 mg/dL 1.6 - 2 .6 mg/dL [facility] Magnesium [Mass/Vol] 1.8 mg/dL Normal 1.6-2.6 [facility] Comment on above: Performed By: #### R ES #### [facility] (DEFAULT) [address] [place] [address] No Panel Informationon 05-16 Interpretation and review of laboratory results Normal [facility] PHOSPHATE, INORGANICon 05-16 Phosphate [Mass/Vol] 3.3 mg/dL 2.2 - 4 .6 mg/dL [facility] Phosphorous 3.3 mg/dL Normal 2.2-4.6 [facility] Comment on above: Performed By: #### R ES #### [facility] (DEFAULT) [address] [place] [address] CBC,PLATELETSon 05-15-2024 Erythrocyte distribution width (RBC) [Ratio] 17.8 % High 10.8 - 14.9 % [facility] Hematocrit (Bld) [Volume fraction] 25.7 % Low 34.9 - 44.3 % [facility] Hemoglobin (Bld) [Mass/Vol] 7.6 g/dL Low 11.4 - 15.2 g/dL [facility] Interpretation and review of laboratory results Abnormal [facility] MCH (RBC) [Entitic mass] 30.6 pg 25.9 - 33.9 pg [facility] MCHC (RBC) [Mass/Vol] 29.6 g/dL Low 31.4 - 35.9 g/dL [facility] MCV (RBC) [Entitic vol] 103.6 fL High 79.6 - 97.7 fL [facility] Platelet mean volume (Bld) [Entitic vol] 12 fL 8.5 - 12.2 fL [facility] Platelets (Bld) [#/Vol] 450 10*3/uL High 150 - 393 K/uL [facility] RBC (Bld) [#/Vol] 2.48 10*6/uL Low [facility] WBC (Bld) [#/Vol] 12.44 10*3/uL High 3.99 - 11.19 K/uL [facility] Hematocrit (Bld) [Volume fraction] 25.7 % Low 34.9-44.3 [facility] Comment on above: Performed By: #### G ASVL #### [facility] (DEFAULT) [address] [address] Hemoglobin (Bld) [Mass/Vol] 7.6 g/dL Low 11.4-15.2 [facility] Comment on above: Performed By: #### G ASVL #### [facility] (DEFAULT) [address] [place] [address] MCV (RBC) [Entitic vol] 103.6 fL High 79.6-97.7 [facility] Comment on above: Performed By: #### G ASVL #### [facility] (DEFAULT) [address] [place] [address] Mean Cell Hgb 30.6 pg Normal 25.9-33.9 [facility] Comment on above: Performed By: #### G ASVL #### [facility] (DEFAULT) [address] [place] [address] Mean Cell Hgb Conc 29.6 g/dL Low 31.4-35.9 [facility] Comment on above: Performed By: #### G ASVL #### [facility] (DEFAULT) [address] [place] [address] Platelet mean volume (Bld) [Entitic vol] 12.0 fL Normal 8.5-12.2 [facility] Comment on above: Performed By: #### G ASVL #### [facility] (DEFAULT) [address] [place] [address] Platelets (Bld) [#/Vol] 450 10*3/uL High 150-393 [facility] Comment on above: Performed By: #### G ASVL #### [facility] (DEFAULT) [address] [place] [address] RBC (Bld) [#/Vol] 2.48 10*6/uL Low 3.91-5.04 [facility] Comment on above: Performed By: #### G ASVL #### [facility] (DEFAULT) [address] [place] [address] RBC Distribution 17.8 % High 10.8-14.[address] [facility] Comment on above: Performed By: #### G ASVL #### [facility] (DEFAULT) [address] [place] [address] WBC (Bld) [#/Vol] 12.44 10*3/uL High 3.99-11.19 [facility] Comment on above: Performed By: #### G ASVL #### [facility] (DEFAULT) [address] [place] [address] CHEM 7 (LYTES,BUN,CREA,GLUC) on 05-15-2024 Anion gap [Moles/Vol] 12 mmol/L 7 - 17 mmol/L [facility] Chloride [Moles/Vol] 104 mmol/L 98 - 10 8 mmol/L [facility] CO2 [Moles/Vol] 28 mmol/L 21 - 31 mmol/L [facility] Creatinine [Mass/Vol] 1.75 mg/dL High 0.50 - 1.20 mg/dL [facility] eGFR, CKD-EPI, Female 29 Low - PINF [facility] Glucose [Mass/Vol] 108 mg/dL High 70 - 99 mg/dL [facility] Interpretation and review of laboratory results Abnormal [facility] Osmolality Calc [Osmolality] 312 High [facility] Potassium [Moles/Vol] 4.2 mmol/L 3.5 - 5.0 mmol/L [facility] Sodium [Moles/Vol] 140 mmol/L 135 - 145 mmol/L [facility] Urea nitrogen [Mass/Vol] 63 mg/dL High 7 - 25 mg/dL [facility] Urea nitrogen/Creatinine [Mass ratio] 36 mg/mg [facility] Anion gap [Moles/Vol] 12 mmol/L Normal 7-17 [facility] Comment on above: Performed By: #### M GO, CHM7, IPB, CKB, TRIG, LDO #### [facility] (DEFAULT) [address] [place] [address] Chloride [Moles/Vol] 104 mmol/L Normal 98-108 [facility] Comment on above: Performed By: #### M GO, CHM7, IPB, CKB, TRIG, LDO #### [facility] (DEFAULT) [address] [place] [address] CO2 [Moles/Vol] 28 mmol/L Normal 21-31 [facility] Comment on above: Performed By: #### M GO, CHM7, IPB, CKB, TRIG, LDO #### [facility] (DEFAULT) [address] [place] [address] Creatinine [Mass/Vol] 1.75 mg/dL High 0.50-1.20 [facility] Comment on above: Performed By: #### M GO, CHM7, IPB, CKB, TRIG, LDO #### [facility] (DEFAULT) [address] [place] [address] GFR/1.73 sq M.predicted among non-blacks MDRD (S/P/Bld) [Vol rate/Area] 29 mL/min/{1.73_m2} Low >=60 [facility] Comment on above: Result Comment: Repo rted eGFR is based on the CKD-EPI 2020 equation using creatinine, age, and sex. Performed By: #### M GO, CHM7, IPB, CKB, TRIG, LDO #### [facility] (DEFAULT) [address] [place] [address] Glucose [Mass/Vol] 108 mg/dL High 70-99 [facility] Comment on above: Performed By: #### M GO, CHM7, IPB, CKB, TRIG, LDO #### [facility] (DEFAULT) [address] [place] [address] Osmolality [Osmolality] 312 mosm/kg High 278-305 [facility] Comment on above: Performed By: #### M GO, CHM7, IPB, CKB, TRIG, LDO #### [facility] (DEFAULT) [address] [place] [address] Potassium [Moles/Vol] 4.2 mmol/L Normal 3.5-5.0 [facility] Comment on above: Performed By: #### M GO, CHM7, IPB, CKB, TRIG, LDO #### [facility] (DEFAULT) [address] [place] [address] Sodium [Moles/Vol] 140 mmol/L Normal 135-145 [facility] Comment on above: Performed By: #### M GO, CHM7, IPB, CKB, TRIG, LDO #### [facility] (DEFAULT) [address] [place] [address] Urea nitrogen [Mass/Vol] 63 mg/dL High 7-25 [facility] Comment on above: Performed By: #### M OMER, CHM7, IPB, CKB, TRIG, LDO #### [facility] (DEFAULT) [address] [place] [address] Urea nitrogen/Creatinine [Mass ratio] 36 mg/mg Normal [facility] Comment on above: Performed By: #### M OMER, CHM7, IPB, CKB, TRIG, LDO #### [facility] (DEFAULT) [address] [place] [address] FLUAV and FLUBV Ag IA.rapid Nom (Unsp spec)Ordered By: Kathleen Blake on 05-15-2024 FLUAV Ag IA.rapid Ql (Nph) Not detected Not Detected [facility] FLUBV Ag IA.rapid Ql (Nph) Not detected Not Detected [facility] Interpretation and review of laboratory results Normal [facility] GLUCOSE POCon 05-15-2024 Glucose [Mass/Vol] 97 mg/dL 70 - 99 mg/dL [facility] POC Sample Type CAPBL [facility] Glucose [Mass/Vol] 105 mg/dL High 70 - 99 mg/dL [facility] Interpretation and review of laboratory results Abnormal [facility] POC Sample Type CAPBL [facility] Glucose [Mass/Vol] 117 mg/dL High 70 - 99 mg/dL [facility] Interpretation and review of laboratory results Abnormal [facility] POC Sample Type CAPBL [facility] INFLUENZA A/B RAPID MOLECULA Josr 05-15-2024 Influenza A, Molecular Not detected Normal Not Detected [facility] Comment on above: Order Comment: This test utilizes isothermal nucleic amplification technology for the differential qualitative detection of influenza A and influenza B viral nucleic acids. Performed By: #### M GO, CHM7, IPB, CKB, TRIG, LDO #### [facility] (DEFAULT) [address] [place] [address] Influenza B, Molecular Not detected Normal Not Detected [facility] Comment on above: Order Comment: This test utilizes isothermal nucleic amplification technology for the differential qualitative detection of influenza A and influenza B viral nucleic acids. Performed By: #### M OMER, CHM7, IPB, CKB, TRIG, LDO #### [facility] (DEFAULT) [address] [place] [address] MAGNESIUMon 05-15-2024 Magnesium [Mass/Vol] 2 mg/dL 1.6 - 2 .6 mg/dL [facility] Magnesium [Mass/Vol] 2.0 mg/dL Normal 1.6-2.6 [facility] Comment on above: Performed By: #### M OMER, CHM7, IPB, CKB, TRIG, LDO #### [facility] (DEFAULT) [address] [place] [address] No Panel Informationon 05-15 Interpretation and review of laboratory results Normal [facility] PHOSPHATE, INORGANICon 05-15 Phosphate [Mass/Vol] 3.9 mg/dL 2.2 - 4 .6 mg/dL [facility] Phosphorous 3.9 mg/dL Normal 2.2-4.6 [facility] Comment on above: Performed By: #### M OMER CHM7, IPB, CKB, TRIG, LDO #### [facility] (DEFAULT) [address] [place] [address] SARS-COV-2 RAPIDon SARS-CoV-2 (COVID-19) RNA JEANA+probe Ql (Unsp spec) Not detected Normal NOT DETECTED, INVALID [facility] Comment on above: Order Comment: Use [...] eye protection, gown, and gloves. Result Comment: [facility] Negative results do not [...] IPB, CKB, TRIG, LDO #### [facility] (DEFAULT) [address] [place] [address] SARS-CoV-2 (COVID-19) RNA NA A+probe Ql (Unsp spec)on 05-15-2024 Interpretation and review of laboratory results Normal [facility] SARS-CoV-2 (COVID-19) RdRp gene JEANA+probe Ql (Resp) Not detected NOT DETECTED, INVALID [facility] Bacteria identified Cx Nom ( Bld)on 05-14-2024 Bacteria identified Cx Nom (Unsp spec) NO GROWTH DAY 5 OF 5 [facility] CBC,PLATELETSon 05-14-2024 Erythrocyte distribution width (RBC) [Ratio] 18.1 % High 10.8 - 14.9 % [facility] Hematocrit (Bld) [Volume fraction] 26.4 % Low 34.9 - 44.3 % [facility] Hemoglobin (Bld) [Mass/Vol] 7.8 g/dL Low 11.4 - 15.2 g/dL [facility] Interpretation and review of laboratory results Abnormal [facility] MCH (RBC) [Entitic mass] 30.4 pg 25.9 - 33.9 pg [facility] MCHC (RBC) [Mass/Vol] 29.5 g/dL Low 31.4 - 35.9 g/dL [facility] MCV (RBC) [Entitic vol] 102.7 fL High 79.6 - 97.7 fL [facility] Platelet mean volume (Bld) [Entitic vol] 11.9 fL 8.5 - 12.2 fL [facility] Platelets (Bld) [#/Vol] 374 10*3/uL 150 - 393 K/uL [facility] RBC (Bld) [#/Vol] 2.57 10*6/uL Low [facility] WBC (Bld) [#/Vol] 13.46 10*3/uL High 3.99 - 11.19 K/uL [facility] Hematocrit (Bld) [Volume fraction] 26.4 % Low 34.9-44.3 [facility] Comment on above: Performed By: #### G ASVL #### [facility] (DEFAULT) [address] [place] [address] Hemoglobin (Bld) [Mass/Vol] 7.8 g/dL Low 11.4-15.2 [facility] Comment on above: Performed By: #### G ASVL #### [facility] (DEFAULT) [address] [place] [address] MCV (RBC) [Entitic vol] 102.7 fL High 79.6-97.7 [facility] Comment on above: Performed By: #### G ASVL #### [facility] (DEFAULT) [address] [place] [address]130 Mean Cell Hgb 30.4 pg Normal 25.9-33.9 [facility] Comment on above: Performed By: #### G ASVL #### [facility] (DEFAULT) [address] [place] [address] Mean Cell Hgb Conc 29.5 g/dL Low 31.4-35.9 [facility] Comment on above: Performed By: #### G ASVL #### [facility] (DEFAULT) [address] [place] [address] Platelet mean volume (Bld) [Entitic vol] 11.9 fL Normal 8.5-12.2 [facility] Comment on above: Performed By: #### G ASVL #### [facility] (DEFAULT) [address] [place] [address] Platelets (Bld) [#/Vol] 374 10*3/uL Normal 150-393 [facility] Comment on above: Performed By: #### G ASVL #### [facility] (DEFAULT) [address] [place] [address] RBC (Bld) [#/Vol] 2.57 10*6/uL Low 3.91-5.04 [facility] Comment on above: Performed By: #### G ASVL #### [facility] (DEFAULT) [address] [place] [address]264 RBC Distribution 18.1 % High 10.8-14.[address] [facility] Comment on above: Performed By: #### G ASVL #### [facility] (DEFAULT) [address] [place] [address] WBC (Bld) [#/Vol] 13.46 10*3/uL High 3.99-11.19 [facility] Comment on above: Performed By: #### G ASVL #### [facility] (DEFAULT) [address] [place] [address]796 CHEM 7 (LYTES,BUN,CREA,GLUC) on 05-14-2024 Anion gap [Moles/Vol] 14 mmol/L 7 - 17 mmol/L [facility] Chloride [Moles/Vol] 103 mmol/L 98 - 10 8 mmol/L [facility] CO2 [Moles/Vol] 26 mmol/L 21 - 31 mmol/L [facility] Creatinine [Mass/Vol] 1.7 mg/dL High 0.50 - 1.20 mg/dL [facility] eGFR, CKD-EPI, Female 30 Low - PINF [facility] Glucose [Mass/Vol] 100 mg/dL High 70 - 99 mg/dL [facility] Interpretation and review of laboratory results Abnormal [facility] Osmolality Calc [Osmolality] 307 High [facility] Potassium [Moles/Vol] 4.6 mmol/L 3.5 - 5.0 mmol/L [facility] Sodium [Moles/Vol] 138 mmol/L 135 - 145 mmol/L [facility] Urea nitrogen [Mass/Vol] 60 mg/dL High 7 - 25 mg/dL [facility] Urea nitrogen/Creatinine [Mass ratio] 35 mg/mg [facility] Anion gap [Moles/Vol] 14 mmol/L Normal 7-17 [facility] Comment on above: Performed By: #### G ASVL #### [facility] (DEFAULT) [address] [address] Chloride [Moles/Vol] 103 mmol/L Normal 98-108 [facility] Comment on above: Performed By: #### G ASVL #### [facility] (DEFAULT) [address] [place] [address] CO2 [Moles/Vol] 26 mmol/L Normal 21-31 [facility] Comment on above: Performed By: #### G ASVL #### [facility] (DEFAULT) [address] [place] [address] 16451 Creatinine [Mass/Vol] 1.70 mg/dL High 0.50-1.20 [facility] Comment on above: Performed By: #### G ASVL #### [facility] (DEFAULT) [address] [address] GFR/1.73 sq M.predicted among non-blacks MDRD (S/P/Bld) [Vol rate/Area] 30 mL/min/{1.73_m2} Low >=60 [facility] Comment on above: Result Comment: Repo rted eGFR is based on the CKD-EPI 2020 equation using creatinine, age, and sex. Performed By: #### G ASVL #### [facility] (DEFAULT) [address] [place] [address]168 Glucose [Mass/Vol] 100 mg/dL High 70-99 [facility] Comment on above: Performed By: #### G ASVL #### [facility] (DEFAULT) [address] [place] [address] Osmolality [Osmolality] 307 mosm/kg High 278-305 [facility] Comment on above: Performed By: #### G ASVL #### [facility] (DEFAULT) [address] [place] [address]108 Potassium [Moles/Vol] 4.6 mmol/L Normal 3.5-5.0 [facility] Comment on above: Performed By: #### G ASVL #### [facility] (DEFAULT) [address] [place] [address] 68382 Sodium [Moles/Vol] 138 mmol/L Normal 135-145 [facility] Comment on above: Performed By: #### G ASVL #### [facility] (DEFAULT) [address] [place] [address] 56154 Urea nitrogen [Mass/Vol] 60 mg/dL High 7-25 [facility] Comment on above: Performed By: #### G ASVL #### [facility] (DEFAULT) [address] [place] [address] 21347 Urea nitrogen/Creatinine [Mass ratio] 35 mg/mg Normal [facility] Comment on above: Performed By: #### G ASVL #### [facility] (DEFAULT) [address] [place] [address] 51274 ECGon 05-14-2024 [facility] ECGOrdered By: Agustina bonilla on 05-14-2024 [facility] Work Phone: GLUCOSE POCon 05-14-2024 Glucose [Mass/Vol] 112 mg/dL High 70 - 99 mg/dL [facility] Interpretation and review of laboratory results Abnormal [facility] POC Sample Type CAPBL [facility] Glucose [Mass/Vol] 109 mg/dL High 70 - 99 mg/dL [facility] Interpretation and review of laboratory results Abnormal [facility] POC Sample Type CAPBL [facility] Glucose [Mass/Vol] 100 mg/dL High 70 - 99 mg/dL [facility] Interpretation and review of laboratory results Abnormal [facility] POC Sample Type CAPBL [facility] MAGNESIUMon 05-14-2024 Magnesium [Mass/Vol] 2 mg/dL 1.6 - 2 .6 mg/dL [facility] Magnesium [Mass/Vol] 2.0 mg/dL Normal 1.6-2.6 [facility] Comment on above: Performed By: #### F CRAG #### [facility] (DEFAULT) [address] [place] [address] No Panel Informationon 05-14 Interpretation and review of laboratory results Normal [facility] PHOSPHATE, INORGANICon 05-14 Phosphate [Mass/Vol] 3.8 mg/dL 2.2 - 4 .6 mg/dL [facility] Phosphorous 3.8 mg/dL Normal 2.2-4.6 [facility] Comment on above: Performed By: #### G ASVL #### [facility] (DEFAULT) [address] [place] [address] CBC,PLATELETSon 05-13-2024 Erythrocyte distribution width (RBC) [Ratio] 18.3 % High 10.8 - 14.9 % [facility] Hematocrit (Bld) [Volume fraction] 26.9 % Low 34.9 - 44.3 % [facility] Hemoglobin (Bld) [Mass/Vol] 8 g/dL Low 11.4 - 15.2 g/dL [facility] Interpretation and review of laboratory results Abnormal [facility] MCH (RBC) [Entitic mass] 30.3 pg 25.9 - 33.9 pg [facility] MCHC (RBC) [Mass/Vol] 29.7 g/dL Low 31.4 - 35.9 g/dL [facility] MCV (RBC) [Entitic vol] 101.9 fL High 79.6 - 97.7 fL [facility] Platelet mean volume (Bld) [Entitic vol] 11.9 fL 8.5 - 12.2 fL [facility] Platelets (Bld) [#/Vol] 368 10*3/uL 150 - 393 K/uL [facility] RBC (Bld) [#/Vol] 2.64 10*6/uL Low [facility] WBC (Bld) [#/Vol] 11.5 10*3/uL High 3.99 - 11.19 K/uL [facility] Hematocrit (Bld) [Volume fraction] 26.9 % Low 34.9-44.3 [facility] Comment on above: Performed By: #### G ASVL #### [facility] (DEFAULT) [address] [place] [address] Hemoglobin (Bld) [Mass/Vol] 8.0 g/dL Low 11.4-15.2 [facility] Comment on above: Performed By: #### G ASVL #### [facility] (DEFAULT) [address] [place] [address]46 MCV (RBC) [Entitic vol] 101.9 fL High 79.6-97.7 [facility] Comment on above: Performed By: #### G ASVL #### [facility] (DEFAULT) [address] [place] [address]20 Mean Cell Hgb 30.3 pg Normal 25.9-33.9 [facility] Comment on above: Performed By: #### G ASVL #### [facility] (DEFAULT) [address] [place] [address] 81823 Mean Cell Hgb Conc 29.7 g/dL Low 31.4-35.9 [facility] Comment on above: Performed By: #### G ASVL #### [facility] (DEFAULT) [address] [place] [address]349 Platelet mean volume (Bld) [Entitic vol] 11.9 fL Normal 8.5-12.2 [facility] Comment on above: Performed By: #### G ASVL #### [facility] (DEFAULT) [address] [address] Platelets (Bld) [#/Vol] 368 10*3/uL Normal 150-393 [facility] Comment on above: Performed By: #### G ASVL #### [facility] (DEFAULT) [address] [address] RBC (Bld) [#/Vol] 2.64 10*6/uL Low 3.91-5.04 [facility] Comment on above: Performed By: #### G ASVL #### [facility] (DEFAULT) [address] [address] RBC Distribution 18.3 % High 10.8-14.[address] [facility] Comment on above: Performed By: #### G ASVL #### [facility] (DEFAULT) [address] [place] [address]94 WBC (Bld) [#/Vol] 11.50 10*3/uL High 3.99-11.19 [facility] Comment on above: Performed By: #### G ASVL #### [facility] (DEFAULT) [address] [place] [address] CHEM 7 (LYTES,BUN,CREA,GLUC) on 05-13-2024 Anion gap [Moles/Vol] 12 mmol/L 7 - 17 mmol/L [facility] Chloride [Moles/Vol] 104 mmol/L 98 - 10 8 mmol/L [facility] CO2 [Moles/Vol] 31 mmol/L 21 - 31 mmol/L [facility] Creatinine [Mass/Vol] 1.89 mg/dL High 0.50 - 1.20 mg/dL [facility] eGFR, CKD-EPI, Female 26 Low - PINF [facility] Glucose [Mass/Vol] 102 mg/dL High 70 - 99 mg/dL [facility] Interpretation and review of laboratory results Abnormal [facility] Osmolality Calc [Osmolality] 317 High [facility] Potassium [Moles/Vol] 4.4 mmol/L 3.5 - 5.0 mmol/L [facility] Sodium [Moles/Vol] 143 mmol/L 135 - 145 mmol/L [facility] Urea nitrogen [Mass/Vol] 62 mg/dL High 7 - 25 mg/dL [facility] Urea nitrogen/Creatinine [Mass ratio] 33 mg/mg [facility] Anion gap [Moles/Vol] 12 mmol/L Normal 7-17 [facility] Comment on above: Performed By: #### M GO, CHM7, IPB, CKB, TRIG, LDO #### [facility] (DEFAULT) [address] [place] [address] Chloride [Moles/Vol] 104 mmol/L Normal 98-108 [facility] Comment on above: Performed By: #### M GO, CHM7, IPB, CKB, TRIG, LDO #### [facility] (DEFAULT) [address] [place] [address] CO2 [Moles/Vol] 31 mmol/L Normal 21-31 [facility] Comment on above: Performed By: #### M GO, CHM7, IPB, CKB, TRIG, LDO #### [facility] (DEFAULT) [address] [place] [address] Creatinine [Mass/Vol] 1.89 mg/dL High 0.50-1.20 [facility] Comment on above: Performed By: #### M GO, CHM7, IPB, CKB, TRIG, LDO #### [facility] (DEFAULT) [address] [place] [address]68 GFR/1.73 sq M.predicted among non-blacks MDRD (S/P/Bld) [Vol rate/Area] 26 mL/min/{1.73_m2} Low >=60 [facility] Comment on above: Result Comment: Repo rted eGFR is based on the CKD-EPI 2020 equation using creatinine, age, and sex. Performed By: #### M GO, CHM7, IPB, CKB, TRIG, LDO #### [place] (DEFAULT) [address] [place] [address] Glucose [Mass/Vol] 102 mg/dL High 70-99 [facility] Comment on above: Performed By: #### M GO, CHM7, IPB, CKB, TRIG, LDO #### [facility] (DEFAULT) [address] [place] [address] Osmolality [Osmolality] 317 mosm/kg High 278-305 [facility] Comment on above: Performed By: #### M GO, CHM7, IPB, CKB, TRIG, LDO #### [facility] (DEFAULT) [address] [place] [address] Potassium [Moles/Vol] 4.4 mmol/L Normal 3.5-5.0 [facility] Comment on above: Performed By: #### M GO, CHM7, IPB, CKB, TRIG, LDO #### [facility] (DEFAULT) [address] [place] [address] Sodium [Moles/Vol] 143 mmol/L Normal 135-145 [facility] Comment on above: Performed By: #### M GO, CHM7, IPB, CKB, TRIG, LDO #### [facility] (DEFAULT) [address] [place] [address] Urea nitrogen [Mass/Vol] 62 mg/dL High 7-25 [facility] Comment on above: Performed By: #### M GO, CHM7, IPB, CKB, TRIG, LDO #### [facility] (DEFAULT) [address] [place] [address] Urea nitrogen/Creatinine [Mass ratio] 33 mg/mg Normal [facility] Comment on above: Performed By: #### M GO, CHM7, IPB, CKB, TRIG, LDO #### [facility] (DEFAULT) [address] [place] [address] ENCEPHALOPATHY, AUTOIMMUNE E VALUATION, CSFon 05-13-2024 AMPAR2 IgG Cell binding assay immunofluorescent assay Ql (CSF) Negative Negative [facility] Amphiphysin Ab IF Ql (CSF) Negative Negative [facility] Annotation comment [Interpretation] Narrative None. [facility] Contactin-associated protein 2 IgG Cell binding assay immunofluorescent assay Ql (CSF) Negative Negative [facility] CV2 Ab IF Ql (CSF) Negative Negative [facility] Dipeptidyl aminopeptidase-like protein 6 IgG Cell binding assay immunofluorescent assay Ql (CSF) Negative Negative [facility] GABABR IgG Cell binding assay immunofluorescent assay Ql (CSF) Negative Negative [facility] Glial fibrillary acidic protein alpha subunit IgG IF Ql (CSF) Negative Negative [facility] Glial nuclear type 1 Ab IF Ql (CSF) Negative Negative [facility] Glutamate decarboxylase 65 IgG+IgM IA (CSF) [Moles/Vol] 0.00 nmol/L NINF - 0.02 nmol/L [facility] IgLON5 CBA, CSF Negative Negative [facility] Trade Manager review Janes (Unsp spec) [Interp] SEE COMMENTS [facility] Leucine-rich glioma-inactivated protein 1 IgG Cell binding assay immunofluorescent assay Ql (CSF) Negative Negative [facility] Metabotropic glutamate receptor 1 IgG IF Ql (CSF) Negative Negative [facility] Neurochondrin IFA, CSF Negative Negative [facility] Neuronal nuclear type 1 Ab IF Ql (CSF) Negative Negative [facility] Neuronal nuclear type 2 Ab IF Ql (CSF) Negative Negative [facility] Neuronal nuclear type 3 Ab IF Ql (CSF) Negative Negative [facility] NIF IFA, CSF Negative Negative [facility] NMDAR subunit 1 IgG Cell binding assay immunofluorescent assay Ql (CSF) Negative Negative [facility] GIFTED PROGRAM TEACHER-1 Ab IF Ql (CSF) Negative Negative [facility] GIFTED PROGRAM TEACHER-2 Ab IF Ql (CSF) Negative Negative [facility] GIFTED PROGRAM TEACHER-Tr Ab IF Ql (CSF) Negative Negative [facility] PDE10A AB IFA, CSF Negative Negative [facility] Septin-7 IFA, CSF Negative Negative [facility] Tripartite Motif-Containing Protein 46 IgG IFA, CSF Negative Negative [facility] FLEXIBLE ENDOSCOPIC EVALUATI ON OF SWALLOWINGon 05-13-2024 RADIOLOGY [facility] GLUCOSE POCon 05-13-2024 Glucose [Mass/Vol] 118 mg/dL High 70 - 99 mg/dL [facility] Interpretation and review of laboratory results Abnormal [facility] POC Sample Type CAPBL [facility] Glucose [Mass/Vol] 121 mg/dL High 70 - 99 mg/dL [facility] Interpretation and review of laboratory results Abnormal [facility] Glucose [Mass/Vol] 107 mg/dL High 70 - 99 mg/dL [facility] Glucose [Mass/Vol] 116 mg/dL High 70 - 99 mg/dL [facility] MAGNESIUMon 05-13-2024 Magnesium [Mass/Vol] 2.2 mg/dL 1.6 - 2 .6 mg/dL [facility] Magnesium [Mass/Vol] 2.2 mg/dL Normal 1.6-2.6 [facility] Comment on above: Performed By: #### ROXY ROA, STIVEN, RUBIA, LAWRENCE, ANGEL #### [facility] (DEFAULT) [address] [place] [address] No Panel Informationon 05-13 Interpretation and review of laboratory results Abnormal [facility] POC Sample Type CAPBL [facility] Interpretation and review of laboratory results Normal [facility] PHOSPHATE, INORGANICon 05-13 Phosphate [Mass/Vol] 3.4 mg/dL 2.2 - 4 .6 mg/dL [facility] Phosphorous 3.4 mg/dL Normal 2.2-4.6 [facility] Comment on above: Performed By: #### ROXY ROA, STIVEN, RUBIA, LAWRENCE, LDO #### [facility] (DEFAULT) [address] [place] [address] CALCIUMon 05-12-2024 Calcium [Mass/Vol] 7.8 mg/dL Low 8.6 - 10. 5 mg/dL [facility] Interpretation and review of laboratory results Abnormal [facility] Calcium [Mass/Vol] 7.8 mg/dL Low 8.6-10.5 [facility] Comment on above: Performed By: #### ROXY ROA, STIVEN, CKBrooks, TRIG, LDO #### [facility] (DEFAULT) [address] [place] [address] CBC,PLATELETSon 05-12-2024 Erythrocyte distribution width (RBC) [Ratio] 18.5 % High 10.8 - 14.9 % [facility] Hematocrit (Bld) [Volume fraction] 26.9 % Low 34.9 - 44.3 % [facility] Hemoglobin (Bld) [Mass/Vol] 7.9 g/dL Low 11.4 - 15.2 g/dL [facility] Interpretation and review of laboratory results Abnormal [facility] MCH (RBC) [Entitic mass] 30.2 pg 25.9 - 33.9 pg [facility] MCHC (RBC) [Mass/Vol] 29.4 g/dL Low 31.4 - 35.9 g/dL [facility] MCV (RBC) [Entitic vol] 102.7 fL High 79.6 - 97.7 fL [facility] Platelet mean volume (Bld) [Entitic vol] 12 fL 8.5 - 12.2 fL [facility] Platelets (Bld) [#/Vol] 299 10*3/uL 150 - 393 K/uL [facility] RBC (Bld) [#/Vol] 2.62 10*6/uL Low [facility] WBC (Bld) [#/Vol] 11.05 10*3/uL 3.99 - 11.19 K/uL [facility] Hematocrit (Bld) [Volume fraction] 26.9 % Low 34.9-44.3 [facility] Comment on above: Performed By: #### M OMER, CHM7, IPB, CKB, TRIG, LDO #### [facility] (DEFAULT) [address] [place] [address] Hemoglobin (Bld) [Mass/Vol] 7.9 g/dL Low 11.4-15.2 [facility] Comment on above: Performed By: #### M OMER, CHM7, IPB, CKB, TRIG, LDO #### [facility] (DEFAULT) [address] [place] [address]68 MCV (RBC) [Entitic vol] 102.7 fL High 79.6-97.7 [facility] Comment on above: Performed By: #### M OMER, CHM7, IPB, CKB, TRIG, LDO #### [facility] (DEFAULT) [address] [place] [address] 12507 Mean Cell Hgb 30.2 pg Normal 25.9-33.9 [facility] Comment on above: Performed By: #### M GO, CHM7, IPB, CKB, TRIG, LDO #### [facility] (DEFAULT) [address] [place] [address] 33808 Mean Cell Hgb Conc 29.4 g/dL Low 31.4-35.9 [facility] Comment on above: Performed By: #### M GO, CHM7, IPB, CKB, TRIG, LDO #### [facility] (DEFAULT) [address] [place] [address] 6[address]89 Platelet mean volume (Bld) [Entitic vol] 12.0 fL Normal 8.5-12.2 [facility] Comment on above: Performed By: #### M GO, CHM7, IPB, CKB, TRIG, LDO #### [facility] (DEFAULT) [address] [place] [address]25 Platelets (Bld) [#/Vol] 299 10*3/uL Normal 150-393 [facility] Comment on above: Performed By: #### M GO, CHM7, IPB, CKB, TRIG, LDO #### [facility] (DEFAULT) [address] [place] [address] 12349 RBC (Bld) [#/Vol] 2.62 10*6/uL Low 3.91-5.04 [facility] Comment on above: Performed By: #### M GO, CHM7, IPB, CKB, TRIG, LDO #### [facility] (DEFAULT) [address] [place] [address] 83427 RBC Distribution 18.5 % High 10.8-14.[address] [facility] Comment on above: Performed By: #### M GO, CHM7, IPB, CKB, TRIG, LDO #### [facility] (DEFAULT) [address] [place] [address]269 WBC (Bld) [#/Vol] 11.05 10*3/uL Normal 3.99-11.19 [facility] Comment on above: Performed By: #### M OMER, CHM7, IPB, CKB, TRIG, LDO #### [facility] (DEFAULT) [address] [place] [address] CHEM 7 (LYTES,BUN,CREA,GLUC) Ordered By: Michael Jiménez on 05-12-2024 Anion gap [Moles/Vol] 13 mmol/L 7 - 17 mmol/L [facility] Chloride [Moles/Vol] 103 mmol/L 98 - 10 8 mmol/L [facility] CO2 [Moles/Vol] 31 mmol/L 21 - 31 mmol/L [facility] Creatinine [Mass/Vol] 2.19 mg/dL High 0.50 - 1.20 mg/dL [facility] eGFR, CKD-EPI, Female 22 Low - PINF [facility] Glucose [Mass/Vol] 96 mg/dL 70 - 99 mg/dL [facility] Interpretation and review of laboratory results Abnormal [facility] Osmolality Calc [Osmolality] 315 High [facility] Potassium [Moles/Vol] 4.6 mmol/L 3.5 - 5.0 mmol/L [facility] Sodium [Moles/Vol] 142 mmol/L 135 - 145 mmol/L [facility] Urea nitrogen [Mass/Vol] 63 mg/dL High 7 - 25 mg/dL [facility] Urea nitrogen/Creatinine [Mass ratio] 29 mg/mg [facility] CHEM 7 (LYTES,BUN,CREA,GLUC) on 05-12-2024 Anion gap [Moles/Vol] 13 mmol/L Normal 7-17 [facility] Comment on above: Performed By: #### M OMER, CHM7, IPB, CKB, TRIG, LDO #### [facility] (DEFAULT) [address] [place], [place] [id number] Chloride [Moles/Vol] 103 mmol/L Normal 98-108 [facility] Comment on above: Performed By: #### M GO, CHM7, IPB, CKB, TRIG, LDO #### [facility] (DEFAULT) [address] [place] [address]44 CO2 [Moles/Vol] 31 mmol/L Normal 21-31 [facility] Comment on above: Performed By: #### M GO, CHM7, IPB, CKB, TRIG, LDO #### [facility] (DEFAULT) [address] [place] [address] 12037 Creatinine [Mass/Vol] 2.19 mg/dL High 0.50-1.20 [facility] Comment on above: Performed By: #### M GO, CHM7, IPB, CKB, TRIG, LDO #### [facility] (DEFAULT) [address] [place] [address] 88280 GFR/1.73 sq M.predicted among non-blacks MDRD (S/P/Bld) [Vol rate/Area] 22 mL/min/{1.73_m2} Low >=60 [facility] Comment on above: Result Comment: Repo rted eGFR is based on the CKD-EPI 2020 equation using creatinine, age, and sex. Performed By: #### M GO, CHM7, IPB, CKB, TRIG, LDO #### [facility] (DEFAULT) [address] [place] [address] 84046 Glucose [Mass/Vol] 96 mg/dL Normal 70-99 [facility] Comment on above: Performed By: #### M GO, CHM7, IPB, CKB, TRIG, LDO #### [facility] (DEFAULT) [address] [place] [address] 22760 Osmolality [Osmolality] 315 mosm/kg High 278-305 [facility] Comment on above: Performed By: #### M GO, CHM7, IPB, CKB, TRIG, LDO #### [facility] (DEFAULT) [address] [place] [address] 82358 Potassium [Moles/Vol] 4.6 mmol/L Normal 3.5-5.0 [facility] Comment on above: Performed By: #### M GO, CHM7, IPB, CKB, TRIG, LDO #### [facility] (DEFAULT) [address] [place] [address]229 Sodium [Moles/Vol] 142 mmol/L Normal 135-145 [facility] Comment on above: Performed By: #### M GO, CHM7, IPB, CKB, TRIG, LDO #### [facility] (DEFAULT) [address] [place] [address] 81624 Urea nitrogen [Mass/Vol] 63 mg/dL High 7-25 [facility] Comment on above: Performed By: #### M GO, CHM7, IPB, CKB, TRIG, LDO #### [facility] (DEFAULT) [address] [place] [address]43 Urea nitrogen/Creatinine [Mass ratio] 29 mg/mg Normal [facility] Comment on above: Performed By: #### M GO, CHM7, IPB, CKB, TRIG, LDO #### [facility] (DEFAULT) [address] [place] [address]50 Cardiac echo study Procedure Ordered By: Bandar Burt on 05-12-2024 Ao arch index 1.25 cm/m2 [facility] Work Phone: Ao ASC index 1.38 cm/m2 [facility] Work Phone: Ao peak radha 1.47 m/s [facility] Work Phone: Ao SOV index 1.46 cm/m2 [facility] Work Phone: Ao STJ index 1.43 cm/m2 [facility] Work Phone: Ao VTI 35.06 cm [facility] Work Phone: Aortic arch 2.68 cm [facility] Work Phone: Ascending aorta 2.96 cm [facility] Work Phone: AV LVOT peak gradient 3 mmHg [facility] Work Phone: AV mean gradient 5 mmHg [facility] Work Phone: AV peak gradient 9 mmHG [facility] Work Phone: AV valve area 2.28 cm2 [facility] Work Phone: AV Velocity Ratio 0.58 [facility] Work Phone: MAHESH (continuity Vmax) 2.08 cm2 [facility] Work Phone: MAHESH (continuity VTI) 2.28 cm2 [facility] Work Phone: MAHESH index (continuity Vmax) 0.97 m/s [facility] Work Phone: MAHESH index (continuity VTI) 1.07 cm2/m2 [facility] Work Phone: Avg e' pk radha 0.07 m/s [facility] Work Phone: Avg E/e' ratio 9.96 [facility] Work Phone: Body surface area Derived from formula 2.14 m2 [facility] Work Phone: BP EF 55 % [facility] Work Phone: DI (Vmax) 0.58 [facility] Work Phone: DI (VTI) 0.64 m/2 [facility] Work Phone: E wave decelartion time 212.07 msec [facility] Work Phone: e' lateral pk radha 0.0824 m/s [facility] Work Phone: e' lateral pk radha 0.08 m/s [facility] Work Phone: e' septal pk radha 0.0628 m/s [facility] Work Phone: e' septal pk radha 0.06 m/s [facility] Work Phone: E/A ratio 1.15 [facility] Work Phone: E/e' lateral ratio 8.62 [facility] Work Phone: E/e' septal ratio 11.31 [facility] Work Phone: EF SP 2CH 60 [facility] Work Phone: EF SP 4CH 51 [facility] Work Phone: EST RAP 5 mmHg [facility] Work Phone: FS 34 % [facility] Work Phone: IVC ostium 1.87 cm [facility] Work Phone: IVS 0.91 cm [facility] Work Phone: LA area 4CH 28.64 cm2 [facility] Work Phone: LA ESV BP (MOD) 91 mL [facility] Work Phone: LA ESV BP (MOD) index 43 mL/m2 [facility] Work Phone: LA ESV SP 2CH (MOD) 84 mL [facility] Work Phone: LA ESV SP 4CH (MOD) 96 mL [facility] Work Phone: [phone] LV EDV BP 125 mL [facility] Work Phone: [phone] LV EDV SP 2CH 112 mL [facility] Work Phone: [phone] LV EDV SP 4CH 137 [facility] - [place] Work Phone: [phone] LV ESV BP [facility] [place] [facility]: [phone] LV ESV SP 2CH 45 [facility] [place] Work Phone: [phone] LV ESV SP 4CH 67 mL [facility] Work Phone: LV mass 144.92 g [facility] Work Phone: LV Mass Index 67.7 g/m2 [facility] Work Phone: LV RWT 0.41 [facility] Work Phone: LV stroke volume BP (ml) 69 mL [facility] Work Phone: LV stroke volume index BP 32.24 mL/m2 [facility] Work Phone: LVIDD 4.64 cm [facility] Work Phone: LVIDS 3.05 cm [facility] Work Phone: LVOT area 3.59 cm2 [facility] Work Phone: LVOT diameter 2.14 cm [facility] Work Phone: LVOT peak radha 0.85 m/s [facility] Work Phone: LVOT peak VTI 22.27 cm [facility] Work Phone: LVOT stroke volume 80 cm3 [facility] Work Phone: LVOT stroke volume index 37.41 ml/m2 [facility] [place] Work [facility]: MV pk A radha 0.62 m/s [facility] [place] Work Phone: MV pk E radha 0.71 m/s [facility] [place] Work Phone: OSU AV VTI RATIO PRE STRESS 0.64 [facility] Work Phone: OSU ECHO LV BIPLANE SYSTOLIC VOLUME INDEX 26.17 mL/m2 [facility] Work Phone: OSU ECHO LV BP DIASTOLIC VOLUME INDEX 58.41 mL/m2 [facility] Work Phone: PV mean gradient 3 mmHg [facility] Work Phone: PV peak gradient 5 mmHg [facility] Work Phone: PV PK RADHA 1.17 m/s [facility] Work Phone: PW 0.94 cm [facility] Work Phone: RA area 4CH (MOD) 16.49 cm2 [facility] Work Phone: RA vol index 4CH (MOD) 18.69 mL/m2 O [facility] Work Phone: Right atrium volume 4 chamber method of disks 40 mL [facility] Work Phone: RV Area diastolic 24.16 cm2 [facility] Work Phone: RV Area systolic 12.8 cm2 [facility] Work Phone: RV Fractional area change 47 % [facility] Work Phone: RV S' 20.24 cm/s [facility] Work Phone: RVOT peak gradient 2 mmHg [facility] Work Phone: RVOT peak radha 0.75 m/s [facility] Work Phone: RVOT peak VTI 15.5 cm [facility] Work Phone: Sinus 3.13 cm [facility] Work Phone: STJ 3.05 cm [facility] Work Phone: Stroke Volume 80 cm/mL [facility] Work Phone: Stroke volume index 37 [facility] Work Phone: TAPSE 3.12 cm [facility] Work Phone: [facility] Work Phone: Cardiac echo study Procedure on 05-12-2024 [facility] ECHOCARDIOGRAMon 05-12-2024 Echocardiography Left ventricular [...] the original result were not included. Facility [facility] Patient Information Patient Name Mari [...] Role Read Date Bandar Burt DO Echo [place] 05/12/2024 Wall Scoring Score Index: 1.24 The [...] Valve Steno (more content not included)... Normal [facility] GLUCOSE POCon 05-12-2024 Glucose [Mass/Vol] 101 mg/dL High 70 - 99 mg/dL [facility] Interpretation and review of laboratory results Abnormal [facility] POC Sample Type CAPBL [facility] Glucose [Mass/Vol] 90 mg/dL 70 - 99 mg/dL [facility] POC Sample Type CAPBL [facility] Glucose [Mass/Vol] 97 mg/dL 70 - 99 mg/dL [facility] POC Sample Type CAPBL [facility] Glucose [Mass/Vol] 96 mg/dL 70 - 99 mg/dL [facility] POC Sample Type CAPBL [facility] LIPID PANEL W CALCULATED LDL on 05-12-2024 Cholesterol [Mass/Vol] 121 mg/dL NINF - 200 mg/dL [facility] Cholesterol in HDL [Mass/Vol] 36 mg/dL Low 40 - PINF mg/dL [facility] Cholesterol in LDL [Mass/Vol] 64 mg/dL 0 - 99 mg/dL [facility] Cholesterol non HDL [Mass/Vol] 85 mg/dL NINF - 130 mg/dL [facility] Cholesterol.total/Chol esterol in HDL [Mass ratio] 3.4 {ratio} NINF - 4.5 [facility] Interpretation and review of laboratory results Abnormal [facility] Triglyceride [Mass/Vol] 103 mg/dL NINF - 150 mg/dL [facility] Calculated LDL Cholesterol 64 mg/dL Normal 0-99 [facility] Comment on above: Result Comment: [<10 0 mg/dL: Optimal] [100-129 mg/dL: Near Optimal] [130-159 mg/dL: Borderline High] [160-189 mg/dL: High] [>189 mg/dL: Very High] Performed By: #### M GO, CHM7, IPB, CKB, TRIG, LDO #### [facility] (DEFAULT) [address] [place] [address] Cholesterol [Mass/Vol] 121 mg/dL Normal <200 [facility] Comment on above: Result Comment: [<20 0 mg/dL: Desirable] [200-239 mg/dL: Borderline High] [>239 mg/dL: High] Performed By: #### M GO, CHM7, IPB, CKB, TRIG, LDO #### [facility] (DEFAULT) [address] [place] [address] Cholesterol in HDL [Mass/Vol] 36 mg/dL Low >=40 [facility] Comment on above: Result Comment: [<40 mg/dL: Low (High Risk)] [>59 mg/dL: High (Low Risk)] Performed By: #### M GO, CHM7, IPB, CKB, TRIG, LDO #### [facility] (DEFAULT) [address] [place] [address] Non HDL Cholesterol 85 mg/dL Normal <130 [facility] Comment on above: Performed By: #### M GO, CHM7, IPB, CKB, TRIG, LDO #### [facility] (DEFAULT) [address] [place] [address] Total Cholesterol/HDL Ratio 3.4 Normal <4.5 [facility] Comment on above: Performed By: #### M GO, CHM7, IPB, CKB, TRIG, LDO #### [facility] (DEFAULT) [address] [place] [address] Triglyceride [Mass/Vol] 103 mg/dL Normal <150 [facility] Comment on above: Result Comment: [<15 0 mg/dL: Desirable] [150-199 mg/dL: Borderline] [200-499 mg/dL: High] [>500 mg/dL: Very High] Performed By: #### M GO, CHM7, IPB, CKB, TRIG, LDO #### [facility] (DEFAULT) [address] [place] [address] MAGNESIUMon 05-12-2024 Magnesium [Mass/Vol] 2.6 mg/dL 1.6 - 2 .6 mg/dL [facility] Magnesium [Mass/Vol] 2.6 mg/dL Normal 1.6-2.6 [facility] Comment on above: Performed By: #### M GO, CHM7, MARGARETHB, CKB, TRIG, LDO #### [facility] (DEFAULT) [address] [place] [address] No Panel Informationon 05-12 [facility] Interpretation and review of laboratory results Normal [facility] PHOSPHATE, INORGANICon 05-12 Phosphate [Mass/Vol] 3.7 mg/dL 2.2 - 4 .6 mg/dL [facility] Phosphorous 3.7 mg/dL Normal 2.2-4.6 [facility] Comment on above: Performed By: #### M ROXY TELLO, STIVEN, CKBrooks, TRIG, LDO #### [facility] (DEFAULT) [address] [place] [address] CBC,PLATELETSon 05-11-2024 Erythrocyte distribution width (RBC) [Ratio] 18.8 % High 10.8 - 14.9 % [facility] Hematocrit (Bld) [Volume fraction] 27.1 % Low 34.9 - 44.3 % [facility] Hemoglobin (Bld) [Mass/Vol] 8 g/dL Low 11.4 - 15.2 g/dL [facility] Interpretation and review of laboratory results Abnormal [facility] MCH (RBC) [Entitic mass] 30.2 pg 25.9 - 33.9 pg [facility] MCHC (RBC) [Mass/Vol] 29.5 g/dL Low 31.4 - 35.9 g/dL [facility] MCV (RBC) [Entitic vol] 102.3 fL High 79.6 - 97.7 fL [facility] Platelet mean volume (Bld) [Entitic vol] 12.1 fL 8.5 - 12.2 fL [facility] Platelets (Bld) [#/Vol] 198 10*3/uL 150 - 393 K/uL [facility] RBC (Bld) [#/Vol] 2.65 10*6/uL Low [facility] WBC (Bld) [#/Vol] 10.52 10*3/uL 3.99 - 11.19 K/uL [facility] Hematocrit (Bld) [Volume fraction] 27.1 % Low 34.9-44.3 [facility] Comment on above: Performed By: #### M GO, CHM7, IPB, CKB, TRIG, LDO #### [facility] (DEFAULT) [address] [place] [address] Hemoglobin (Bld) [Mass/Vol] 8.0 g/dL Low 11.4-15.2 [facility] Comment on above: Performed By: #### M GO, CHM7, IPB, CKB, TRIG, LDO #### [facility] (DEFAULT) [address] [place] [address] 85160 MCV (RBC) [Entitic vol] 102.3 fL High 79.6-97.7 [facility] Comment on above: Performed By: #### M GO, CHM7, IPB, CKB, TRIG, LDO #### [facility] (DEFAULT) [address] [place] [address] 18910 Mean Cell Hgb 30.2 pg Normal 25.9-33.9 [facility] Comment on above: Performed By: #### M GO, CHM7, IPB, CKB, TRIG, LDO #### [facility] (DEFAULT) [address] [place] [address] 82540 Mean Cell Hgb Conc 29.5 g/dL Low 31.4-35.9 [facility] Comment on above: Performed By: #### M GO, CHM7, IPB, CKB, TRIG, LDO #### [facility] (DEFAULT) [address] [place] [address] 18133 Platelet mean volume (Bld) [Entitic vol] 12.1 fL Normal 8.5-12.2 [facility] Comment on above: Performed By: #### M GO, CHM7, IPB, CKB, TRIG, LDO #### [facility] (DEFAULT) [address] [place] [address] 77859 Platelets (Bld) [#/Vol] 198 10*3/uL Normal 150-393 [facility] Comment on above: Performed By: #### M GO, CHM7, IPB, CKB, TRIG, LDO #### [facility] (DEFAULT) [address] [place] [address] 50017 RBC (Bld) [#/Vol] 2.65 10*6/uL Low 3.91-5.04 [facility] Comment on above: Performed By: #### M GO, CHM7, IPB, CKB, TRIG, LDO #### [facility] (DEFAULT) [address] [place] [address] 22009 RBC Distribution 18.8 % High 10.8-14.[address] [facility] Comment on above: Performed By: #### M GO, CHM7, IPB, CKB, TRIG, LDO #### [facility] (DEFAULT) [address] [place] [address] 97048 WBC (Bld) [#/Vol] 10.52 10*3/uL Normal 3.99-11.19 [facility] Comment on above: Performed By: #### M GO, CHM7, IPB, CKB, TRIG, LDO #### [facility] (DEFAULT) [address] [place] [address] 11543 CHEM 7 (LYTES,BUN,CREA,GLUC) Ordered By: Kvng Hurst on 05-11-2024 Anion gap [Moles/Vol] 12 mmol/L 7 - 17 mmol/L [facility] Chloride [Moles/Vol] 118 mmol/L High 98 - 10 8 mmol/L [facility] CO2 [Moles/Vol] 19 mmol/L Low 21 - 31 mmol/L [facility] Creatinine [Mass/Vol] 1.6 mg/dL High 0.50 - 1.20 mg/dL [facility] eGFR, CKD-EPI, Female 32 Low - PINF [facility] Glucose [Mass/Vol] 64 mg/dL Low 70 - 99 mg/dL [facility] Interpretation and review of laboratory results Abnormal [facility] Osmolality Calc [Osmolality] 309 High [facility] Potassium [Moles/Vol] 2.8 mmol/L Critically low 3.5 - 5.0 mmol/L [facility] Sodium [Moles/Vol] 146 mmol/L High 135 - 145 mmol/L [facility] Urea nitrogen [Mass/Vol] 41 mg/dL High 7 - 25 mg/dL [facility] Urea nitrogen/Creatinine [Mass ratio] 26 mg/mg [facility] CHEM 7 (LYTES,BUN,CREA,GLUC) on 05-11-2024 Anion gap [Moles/Vol] 12 mmol/L Normal 7-17 [facility] Comment on above: Performed By: #### M GO, CHM7, IPB, CKB, TRIG, LDO #### [facility] (DEFAULT) [address] [place] [address] 91515 Chloride [Moles/Vol] 118 mmol/L High 98-108 [facility] Comment on above: Performed By: #### M GO, CHM7, IPB, CKB, TRIG, LDO #### [facility] (DEFAULT) [address] [place] [address] CO2 [Moles/Vol] 19 mmol/L Low 21-31 [facility] Comment on above: Performed By: #### M GO, CHM7, IPB, CKB, TRIG, LDO #### [facility] (DEFAULT) [address] [place] [address] 9[address]25 Creatinine [Mass/Vol] 1.60 mg/dL High 0.50-1.20 [facility] Comment on above: Performed By: #### M GO, CHM7, IPB, CKB, TRIG, LDO #### [facility] (DEFAULT) [address] [place] [address] 67665 GFR/1.73 sq M.predicted among non-blacks MDRD (S/P/Bld) [Vol rate/Area] 32 mL/min/{1.73_m2} Low >=60 [facility] Comment on above: Result Comment: Repo rted eGFR is based on the CKD-EPI 2020 equation using creatinine, age, and sex. Performed By: #### M GO, CHM7, IPB, CKB, TRIG, LDO #### [facility] (DEFAULT) [address] [place] [address] 19408 Glucose [Mass/Vol] 64 mg/dL Low 70-99 [facility] Comment on above: Performed By: #### M GO, CHM7, IPB, CKB, TRIG, LDO #### [facility] (DEFAULT) [address] [place] [address] 77727 Osmolality [Osmolality] 309 mosm/kg High 278-305 [facility] Comment on above: Performed By: #### M GO, CHM7, IPB, CKB, TRIG, LDO #### [facility] (DEFAULT) [address] [place] [address] 20204 Potassium [Moles/Vol] 2.8 mmol/L Critically low 3.5-5.0 [facility] Comment on above: Performed By: #### M GO, CHM7, IPB, CKB, TRIG, LDO #### [facility] (DEFAULT) [address] [place] [address] 56524 Sodium [Moles/Vol] 146 mmol/L High 135-145 [facility] Comment on above: Performed By: #### M GO, CHM7, IPB, CKB, TRIG, LDO #### [facility] (DEFAULT) [address] [place] [address] 16337 Urea nitrogen [Mass/Vol] 41 mg/dL High 7-25 [facility] Comment on above: Performed By: #### M GO, CHM7, IPB, CKB, TRIG, LDO #### [facility] (DEFAULT) [address] [place] [address] 10456 Urea nitrogen/Creatinine [Mass ratio] 26 mg/mg Normal [facility] Comment on above: Performed By: #### M GO, CHM7, IPB, CKB, TRIG, LDO #### [facility] (DEFAULT) [address] [place] [address] 72811 Cardiac echo study Procedure on 05-11-2024 Radiology Study observation (narrative) [facility] FOLATE, SERUMon 05-11-2024 Folate [Mass/Vol] 19.69 ng/mL 5.38 - PINF ng/mL [facility] Folate 19.69 ng/mL Normal >5.38 [facility] Comment on above: Performed By: #### M GO, CHM7, IPB, CKB, TRIG, LDO #### [facility] (DEFAULT) [address] [place] [address] 92407 GLUCOSE POCon 05-11-2024 Glucose [Mass/Vol] 108 mg/dL High 70 - 99 mg/dL [facility] Interpretation and review of laboratory results Abnormal [facility] POC Sample Type CAPBL [facility] Glucose [Mass/Vol] 89 mg/dL 70 - 99 mg/dL [facility] POC Sample Type CAPBL [facility] MAGNESIUMon 05-11-2024 Interpretation and review of laboratory results Abnormal [facility] Magnesium [Mass/Vol] 1.2 mg/dL Low 1.6 - 2 .6 mg/dL [facility] Magnesium [Mass/Vol] 1.2 mg/dL Low 1.6-2.6 [facility] Comment on above: Performed By: #### M GO, CHM7, IPB, CKB, TRIG, LDO #### [facility] (DEFAULT) [address] [place] [address] 8[address]11 No Panel Informationon 05-11 Interpretation and review of laboratory results Normal [facility] PHOSPHATE, INORGANICon 05-11 Phosphate [Mass/Vol] 2.8 mg/dL 2.2 - 4 .6 mg/dL [facility] Phosphorous 2.8 mg/dL Normal 2.2-4.6 [facility] Comment on above: Performed By: #### M GO, CHM7, IPB, CKB, TRIG, LDO #### [facility] (DEFAULT) [address] [place] [address] Bacteria identified Cx Nom ( Bld)on 05-10-2024 Bacteria identified Cx Nom (Unsp spec) NO GROWTH DAY 5 OF 5 [facility] Bacteria identified Cx Nom (Unsp spec) NO GROWTH DAY 5 OF 5 [facility] Bacteria identified Respirat ory culture Nom (Unsp spec)Ordered By: Michael Mora on 05-10-2024 Bacteria identified Cx Nom (Unsp spec) Growth [facility] Bacteria identified Cx Nom (Unsp spec) Light Growth Common oropharyngeal microbes [facility] Microscopic observation Other stain Nom (Unsp spec) Neutrophils, Heavy [facility] Microscopic observation Other stain Nom (Unsp spec) Contaminating bacteria and epithelials present [facility] Microscopic observation Other stain Nom (Unsp spec) Specimen is of optimum quality [facility] CBC,PLATELETSon 05-10-2024 Erythrocyte distribution width (RBC) [Ratio] 19.2 % High 10.8 - 14.9 % [facility] Hematocrit (Bld) [Volume fraction] 27.9 % Low 34.9 - 44.3 % [facility] Hemoglobin (Bld) [Mass/Vol] 8.4 g/dL Low 11.4 - 15.2 g/dL [facility] Interpretation and review of laboratory results Abnormal [facility] MCH (RBC) [Entitic mass] 30.1 pg 25.9 - 33.9 pg [facility] MCHC (RBC) [Mass/Vol] 30.1 g/dL Low 31.4 - 35.9 g/dL [facility] MCV (RBC) [Entitic vol] 100 fL High 79.6 - 97.7 fL [facility] Platelet mean volume (Bld) [Entitic vol] 12.6 fL High 8.5 - 12.2 fL [facility] Platelets (Bld) [#/Vol] 210 10*3/uL 150 - 393 K/uL [facility] RBC (Bld) [#/Vol] 2.79 10*6/uL Low [facility] WBC (Bld) [#/Vol] 16 10*3/uL High 3.99 - 11.19 K/uL [facility] Hematocrit (Bld) [Volume fraction] 27.9 % Low 34.9-44.3 [facility] Comment on above: Performed By: #### G ASVL #### [facility] (DEFAULT) [address] [address] Hemoglobin (Bld) [Mass/Vol] 8.4 g/dL Low 11.4-15.2 [facility] Comment on above: Performed By: #### G ASVL #### [facility] (DEFAULT) [address] [place] [address] 90909 MCV (RBC) [Entitic vol] 100.0 fL High 79.6-97.7 [facility] Comment on above: Performed By: #### G ASVL #### [facility] (DEFAULT) [address] [place] [address] 89859 Mean Cell Hgb 30.1 pg Normal 25.9-33.9 [facility] Comment on above: Performed By: #### G ASVL #### [facility] (DEFAULT) [address] [place] [address] 90426 Mean Cell Hgb Conc 30.1 g/dL Low 31.4-35.9 [facility] Comment on above: Performed By: #### G ASVL #### [facility] (DEFAULT) [address] [place] [address] 99246 Platelet mean volume (Bld) [Entitic vol] 12.6 fL High 8.5-12.2 [facility] Comment on above: Performed By: #### G ASVL #### [facility] (DEFAULT) [address] [place] [address] 36925 Platelets (Bld) [#/Vol] 210 10*3/uL Normal 150-393 [facility] Comment on above: Performed By: #### G ASVL #### [facility] (DEFAULT) [address] [place] [address] 00010 RBC (Bld) [#/Vol] 2.79 10*6/uL Low 3.91-5.04 [facility] Comment on above: Performed By: #### G ASVL #### [facility] (DEFAULT) [address] [place] [address] 29982 RBC Distribution 19.2 % High 10.8-14.[address] [facility] Comment on above: Performed By: #### G ASVL #### [facility] (DEFAULT) [address] [place] [address] 60394 WBC (Bld) [#/Vol] 16.00 10*3/uL High 3.99-11.19 [facility] Comment on above: Performed By: #### G ASVL #### [facility] (DEFAULT) [address] [place] [address] 14814 Erythrocyte distribution width (RBC) [Ratio] 19.2 % High 10.8 - 14.9 % [facility] Hematocrit (Bld) [Volume fraction] 26.4 % Low 34.9 - 44.3 % [facility] Hemoglobin (Bld) [Mass/Vol] 7.9 g/dL Low 11.4 - 15.2 g/dL [facility] Interpretation and review of laboratory results Abnormal [facility] MCH (RBC) [Entitic mass] 30.3 pg 25.9 - 33.9 pg [facility] MCHC (RBC) [Mass/Vol] 29.9 g/dL Low 31.4 - 35.9 g/dL [facility] MCV (RBC) [Entitic vol] 101.1 fL High 79.6 - 97.7 fL [facility] Platelet mean volume (Bld) [Entitic vol] 12.6 fL High 8.5 - 12.2 fL [facility] Platelets (Bld) [#/Vol] 161 10*3/uL 150 - 393 K/uL [facility] RBC (Bld) [#/Vol] 2.61 10*6/uL Low [facility] WBC (Bld) [#/Vol] 18.44 10*3/uL High 3.99 - 11.19 K/uL [facility] CHEM 7 (LYTES,BUN,CREA,GLUC) on 05-10-2024 Anion gap [Moles/Vol] 14 mmol/L 7 - 17 mmol/L [facility] Chloride [Moles/Vol] 105 mmol/L 98 - 10 8 mmol/L [facility] CO2 [Moles/Vol] 27 mmol/L 21 - 31 mmol/L [facility] Creatinine [Mass/Vol] 2.5 mg/dL High 0.50 - 1.20 mg/dL [facility] eGFR, CKD-EPI, Female 19 Low - PINF [facility] Glucose [Mass/Vol] 106 mg/dL High 70 - 99 mg/dL [facility] Interpretation and review of laboratory results Abnormal [facility] Osmolality Calc [Osmolality] 309 High [facility] Potassium [Moles/Vol] 4 mmol/L 3.5 - 5.0 mmol/L [facility] Sodium [Moles/Vol] 142 mmol/L 135 - 145 mmol/L [facility] Urea nitrogen [Mass/Vol] 48 mg/dL High 7 - 25 mg/dL [facility] Urea nitrogen/Creatinine [Mass ratio] 19 mg/mg [facility] CONTINUOUS CARDIAC MONITORIN G STRIPon 05-10-2024 [facility] FERRITINon 05-10-2024 Ferritin [Mass/Vol] 634.7 ng/mL High 7.3 - 270.7 ng/mL [facility] Interpretation and review of laboratory results Abnormal [facility] GLUCOSE POCon 05-10-2024 Glucose [Mass/Vol] 145 mg/dL High 70 - 99 mg/dL [facility] Glucose [Mass/Vol] 134 mg/dL High 70 - 99 mg/dL [facility] Glucose [Mass/Vol] 94 mg/dL 70 - 99 mg/dL [facility] IONIZED CALCIUM, WHOLE BLOOD Ordered By: Cecil Guillen on 05-10-2024 Calcium.ionized (Bld) [Moles/Vol] 4.07 mg/dL Low 4.60 - 5.30 mg/dL [facility] Interpretation and review of laboratory results Abnormal [facility] IRON/IRON BINDING/TRANSFERRI Non 05-10-2024 Interpretation and review of laboratory results Abnormal [facility] Iron [Mass/Vol] 68 ug/dL [facility] Iron binding capacity [Mass/Vol] 140 Low [facility] Iron saturation [Mass fraction] 49 % 20 - 55 % [facility] Transferrin [Mass/Vol] 112 mg/dL Low 200 - 400 mg/dL [facility] MAGNESIUMon 05-10-2024 Magnesium [Mass/Vol] 2 mg/dL 1.6 - 2 .6 mg/dL [facility] No Panel Informationon 05-10 Interpretation and review of laboratory results Abnormal [facility] POC Sample Type CAPBL [facility] Interpretation and review of laboratory results Normal [facility] PHOSPHATE, INORGANICon 05-10 Phosphate [Mass/Vol] 3.7 mg/dL 2.2 - 4 .6 mg/dL [facility] VITAMIN B12on 05-10-2024 Cobalamin (Vitamin B12) [Mass/Vol] 1322 pg/mL High 211 - 911 pg/mL [facility] Interpretation and review of laboratory results Abnormal [facility] BLOOD CULTUREon 05-09-2024 Bacteria identified Cx Nom (Unsp spec) NO GROWTH DAY 5 OF 5 Normal [facility] Comment on above: Order Comment: 2 Bot tles (1 Set - consists of 1 Aerobic bottle and 1 Anaerobic bottle) -1st Peripheral DrawFor vacutainer method draw: Fill aerobic bottle first, then anaerobic Performed By: #### M OMER, CHM7, IPB, CKB, TRIG, LDO #### [facility] (DEFAULT) [address] [place] [address]876 C DIFFICILE TWO STEPOrdered By: Stanford Auguste on 05-09-2024 C. difficile DNA JEANA+probe Ql (Unsp spec) Negative Negative [facility] Interpretation and review of laboratory results Normal [facility] CBC,PLATELETSon 05-09-2024 Hematocrit (Bld) [Volume fraction] 26.4 % Low 34.9-44.3 [facility] Comment on above: Performed By: #### Dede TELLO, CHM7, IPB, CKB, TRIG, LDO #### [facility] (DEFAULT) [address] [place] [address] 61570 Hemoglobin (Bld) [Mass/Vol] 7.9 g/dL Low 11.4-15.2 [facility] Comment on above: Performed By: #### M OMER, CHM7, IPB, CKB, TRIG, LDO #### [facility] (DEFAULT) [address] [place] [address] 56035 MCV (RBC) [Entitic vol] 101.1 fL High 79.6-97.7 [facility] Comment on above: Performed By: #### M OMER, CHM7, IPB, CKB, TRIG, LDO #### [facility] (DEFAULT) [address] [place] [address] 11566 Mean Cell Hgb 30.3 pg Normal 25.9-33.9 [facility] Comment on above: Performed By: #### M GO, CHM7, IPB, CKB, TRIG, LDO #### [facility] (DEFAULT) [address] [place] [address] 56945 Mean Cell Hgb Conc 29.9 g/dL Low 31.4-35.9 [facility] Comment on above: Performed By: #### M GO, CHM7, IPB, CKB, TRIG, LDO #### [facility] (DEFAULT) [address] [place] [address] 59654 Platelet mean volume (Bld) [Entitic vol] 12.6 fL High 8.5-12.2 [facility] Comment on above: Performed By: #### M GO, CHM7, IPB, CKB, TRIG, LDO #### [place] [facility] (DEFAULT) [address] [place] [address] 03183 Platelets (Bld) [#/Vol] 161 10*3/uL Normal 150-393 [facility] Comment on above: Performed By: #### M GO, CHM7, IPB, CKB, TRIG, LDO #### [facility] (DEFAULT) [address] [place] [address] 56119 RBC (Bld) [#/Vol] 2.61 10*6/uL Low 3.91-5.04 [facility] Comment on above: Performed By: #### M GO, CHM7, IPB, CKB, TRIG, LDO #### [facility] (DEFAULT) [address] [place] [address] 74674 RBC Distribution 19.2 % High 10.8-14.[address] [facility] Comment on above: Performed By: #### M GO, CHM7, IPB, CKB, TRIG, LDO #### [facility] (DEFAULT) [address] [place] [address] 40955 WBC (Bld) [#/Vol] 18.44 10*3/uL High 3.99-11.19 [facility] Comment on above: Performed By: #### M GO, CHM7, IPB, CKB, TRIG, LDO #### [facility] (DEFAULT) [address] [address] Erythrocyte distribution width (RBC) [Ratio] 19.2 % High 10.8 - 14.9 % [facility] Hematocrit (Bld) [Volume fraction] 28.1 % Low 34.9 - 44.3 % [facility] Hemoglobin (Bld) [Mass/Vol] 8.8 g/dL Low 11.4 - 15.2 g/dL [facility] Interpretation and review of laboratory results Abnormal [facility] MCH (RBC) [Entitic mass] 30.6 pg 25.9 - 33.9 pg [facility] MCHC (RBC) [Mass/Vol] 31.3 g/dL Low 31.4 - 35.9 g/dL [facility] MCV (RBC) [Entitic vol] 97.6 fL 79.6 - 97.7 fL [facility] Platelet mean volume (Bld) [Entitic vol] [facility] Platelets (Bld) [#/Vol] 118 10*3/uL Low 150 - 393 K/uL [facility] RBC (Bld) [#/Vol] 2.88 10*6/uL Low [facility] WBC (Bld) [#/Vol] 16.92 10*3/uL High 3.99 - 11.19 K/uL [facility] Hematocrit (Bld) [Volume fraction] 28.1 % Low 34.9-44.3 [facility] Comment on above: Performed By: #### R ES #### [facility] (DEFAULT) [address] [address] Hemoglobin (Bld) [Mass/Vol] 8.8 g/dL Low 11.4-15.2 [facility] Comment on above: Performed By: #### R ES #### [facility] (DEFAULT) [address] [address] MCV (RBC) [Entitic vol] 97.6 fL Normal 79.6-97.7 [facility] Comment on above: Performed By: #### R ES #### [facility] (DEFAULT) [address] [address] Mean Cell Hgb 30.6 pg Normal 25.9-33.9 [facility] Comment on above: Performed By: #### R ES #### [facility] (DEFAULT) [address] [address] Mean Cell Hgb Conc 31.3 g/dL Low 31.4-35.9 [facility] Comment on above: Performed By: #### R ES #### [facility] (DEFAULT) [address] [address] Mean Platelet Volume Normal [facility] Comment on above: Result Comment: Not measured Performed By: #### R ES #### [facility] (DEFAULT) [address] [address] Platelets (Bld) [#/Vol] 118 10*3/uL Low 150-393 [facility] Comment on above: Performed By: #### R ES #### [facility] (DEFAULT) [address] [address] RBC (Bld) [#/Vol] 2.88 10*6/uL Low 3.91-5.04 [facility] Comment on above: Performed By: #### R ES #### [facility] (DEFAULT) [address] [address] RBC Distribution 19.2 % High 10.8-14.[address] [facility] Comment on above: Performed By: #### R ES #### [facility] (DEFAULT) [address] [address] WBC (Bld) [#/Vol] 16.92 10*3/uL High 3.99-11.19 [facility] Comment on above: Performed By: #### R ES #### [facility] (DEFAULT) [address] [place] [address] 30303 CHEM 7 (LYTES,BUN,CREA,GLUC) on 05-09-2024 Anion gap [Moles/Vol] 14 mmol/L Normal 7-17 [facility] Comment on above: Performed By: #### M GO, CHM7, IPB, CKB, TRIG, LDO #### [facility] (DEFAULT) [address] [place] [address] 46040 Chloride [Moles/Vol] 105 mmol/L Normal 98-108 [facility] Comment on above: Performed By: #### M GO, CHM7, IPB, CKB, TRIG, LDO #### [facility] (DEFAULT) [address] [place] [address] 52036 CO2 [Moles/Vol] 27 mmol/L Normal 21-31 [facility] Comment on above: Performed By: #### M GO, CHM7, IPB, CKB, TRIG, LDO #### [facility] (DEFAULT) [address] [place] [address] 18753 Creatinine [Mass/Vol] 2.50 mg/dL High 0.50-1.20 [facility] Comment on above: Performed By: #### M GO, CHM7, IPB, CKB, TRIG, LDO #### [facility] (DEFAULT) [address] [place] [address] 32750 GFR/1.73 sq M.predicted among non-blacks MDRD (S/P/Bld) [Vol rate/Area] 19 mL/min/{1.73_m2} Low >=60 [facility] Comment on above: Result Comment: Repo rted eGFR is based on the CKD-EPI 2020 equation using creatinine, age, and sex. Performed By: #### M GO, CHM7, IPB, CKB, TRIG, LDO #### [facility] (DEFAULT) [address] [place] [address] 42358 Glucose [Mass/Vol] 106 mg/dL High 70-99 [facility] Comment on above: Performed By: #### M GO, CHM7, IPB, CKB, TRIG, LDO #### [facility] (DEFAULT) [address] [place] [address] 41856 Osmolality [Osmolality] 309 mosm/kg High 278-305 [facility] Comment on above: Performed By: #### M GO, CHM7, IPB, CKB, TRIG, LDO #### [facility] (DEFAULT) [address] [place] [address] 27820 Potassium [Moles/Vol] 4.0 mmol/L Normal 3.5-5.0 [facility] Comment on above: Performed By: #### M GO, CHM7, IPB, CKB, TRIG, LDO #### [facility] (DEFAULT) [address] [place] [address] 91293 Sodium [Moles/Vol] 142 mmol/L Normal 135-145 [facility] Comment on above: Performed By: #### M GO, CHM7, IPB, CKB, TRIG, LDO #### [facility] (DEFAULT) [address] [place] [address] 31082 Urea nitrogen [Mass/Vol] 48 mg/dL High 7-25 [facility] Comment on above: Performed By: #### M GO, CHM7, IPB, CKB, TRIG, LDO #### [facility] (DEFAULT) [address] [place] [address] 99916 Urea nitrogen/Creatinine [Mass ratio] 19 mg/mg Normal [facility] Comment on above: Performed By: #### M GO, CHM7, IPB, CKB, TRIG, LDO #### [facility] (DEFAULT) [address] [place] [address]15 Anion gap [Moles/Vol] 13 mmol/L 7 - 17 mmol/L [facility] Chloride [Moles/Vol] 104 mmol/L 98 - 10 8 mmol/L [facility] CO2 [Moles/Vol] 27 mmol/L 21 - 31 mmol/L [facility] Creatinine [Mass/Vol] 2.66 mg/dL High 0.50 - 1.20 mg/dL [facility] eGFR, CKD-EPI, Female 17 Low - PINF [facility] Glucose [Mass/Vol] 139 mg/dL High 70 - 99 mg/dL [facility] Interpretation and review of laboratory results Abnormal [facility] Osmolality Calc [Osmolality] 303 [facility] Potassium [Moles/Vol] 4.1 mmol/L 3.5 - 5.0 mmol/L [facility] Sodium [Moles/Vol] 140 mmol/L 135 - 145 mmol/L [facility] Urea nitrogen [Mass/Vol] 35 mg/dL High 7 - 25 mg/dL [facility] Urea nitrogen/Creatinine [Mass ratio] 13 mg/mg [facility] Anion gap [Moles/Vol] 13 mmol/L Normal 7-17 [facility] Comment on above: Performed By: #### M OMER CHM7, IPB, CKB, TRIG, LDO #### [facility] (DEFAULT) [address] [place] [address] 39537 Chloride [Moles/Vol] 104 mmol/L Normal 98-108 [facility] Comment on above: Performed By: #### M OMER CHM7, IPB, CKB, TRIG, LDO #### [facility] (DEFAULT) [address] [place] [address] CO2 [Moles/Vol] 27 mmol/L Normal 21-31 [facility] Comment on above: Performed By: #### M OMER, CHM7, IPB, CKB, TRIG, LDO #### [facility] (DEFAULT) [address] [place] [address] Creatinine [Mass/Vol] 2.66 mg/dL High 0.50-1.20 [facility] Comment on above: Performed By: #### M GO, CHM7, IPB, CKB, TRIG, LDO #### [facility] (DEFAULT) [address] [place] [address] 34012 GFR/1.73 sq M.predicted among non-blacks MDRD (S/P/Bld) [Vol rate/Area] 17 mL/min/{1.73_m2} Low >=60 [facility] Comment on above: Result Comment: Repo rted eGFR is based on the CKD-EPI 2020 equation using creatinine, age, and sex. Performed By: #### M GO, CHM7, IPB, CKB, TRIG, LDO #### [facility] (DEFAULT) [address] [place] [address] 14122 Glucose [Mass/Vol] 139 mg/dL High 70-99 [facility] Comment on above: Performed By: #### M GO, CHM7, IPB, CKB, TRIG, LDO #### [facility] (DEFAULT) [address] [place] [address] 40796 Osmolality [Osmolality] 303 mosm/kg Normal 278-305 [facility] Comment on above: Performed By: #### M GO, CHM7, IPB, CKB, TRIG, LDO #### [facility] (DEFAULT) [address] [place] [address] 91792 Potassium [Moles/Vol] 4.1 mmol/L Normal 3.5-5.0 [facility] Comment on above: Performed By: #### M GO, CHM7, IPB, CKB, TRIG, LDO #### [facility] (DEFAULT) [address] [place] [address] 00569 Sodium [Moles/Vol] 140 mmol/L Normal 135-145 [facility] Comment on above: Performed By: #### M GO, CHM7, IPB, CKB, TRIG, LDO #### [facility] (DEFAULT) [address] [place] [address] 65807 Urea nitrogen [Mass/Vol] 35 mg/dL High 7-25 [facility] Comment on above: Performed By: #### M GO, CHM7, IPB, CKB, TRIG, LDO #### [facility] (DEFAULT) [address] [place] [address] 20246 Urea nitrogen/Creatinine [Mass ratio] 13 mg/mg Normal [facility] Comment on above: Performed By: #### M GO, CHM7, IPB, CKB, TRIG, LDO #### [facility] (DEFAULT) [address] [place] [address] 88576 EXTRA MICROon 05-09-2024 [facility] FERRITINon 05-09-2024 Ferritin [Mass/Vol] 634.7 ng/mL High 7.3-270.7 [facility] Comment on above: Performed By: #### M OMER, CHM7, IPB, CKB, TRIG, LDO #### [facility] (DEFAULT) [address] [place] [address]19 GENERAL PROCEDUREon 05-09-19 25 [facility] GENERAL PROCEDUREOrdered By: Mulugeta Barker on 05-09-2024 [facility] Work Phone: GLUCOSE POCon 05-09-2024 Glucose [Mass/Vol] 109 mg/dL High 70 - 99 mg/dL [facility] Glucose [Mass/Vol] 118 mg/dL High 70 - 99 mg/dL [facility] Glucose [Mass/Vol] 144 mg/dL High 70 - 99 mg/dL [facility] Glucose [Mass/Vol] 164 mg/dL High 70 - 99 mg/dL [facility] IONIZED CALCIUM, WHOLE BLOOD on 05-09-2024 ICA 4.07 mg/dL Low 4.60-5.30 [facility] Comment on above: Order Comment: If io nized calcium is less than or equal to 3.0 mg/dL, recheck ionized calcium 2 hours after replacement. Performed By: #### M GO, CHM7, IPB, CKB, TRIG, LDO #### [facility] (DEFAULT) [address] [place] [address] 07963 ICA 4.38 mg/dL Low 4.60-5.30 [facility] Comment on above: Order Comment: If io nized calcium is less than or equal to 3.0 mg/dL, recheck ionized calcium 2 hours after replacement. Performed By: #### M GO, CHM7, IPB, CKB, TRIG, LDO #### [facility] (DEFAULT) [address] [place] [address] 6[address]21 IONIZED CALCIUM, WHOLE BLOOD Ordered By: Diana Roblero on 05-09-2024 Calcium.ionized (Bld) [Moles/Vol] 4.38 mg/dL Low 4.60 - 5.30 mg/dL [facility] Interpretation and review of laboratory results Abnormal [facility] IRON/IRON BINDING/TRANSFERRI Non 05-09-2024 Iron [Mass/Vol] 68 ug/dL Normal 40-174 [facility] Comment on above: Performed By: #### M GO, CHM7, IPB, CKB, TRIG, LDO #### [facility] (DEFAULT) [address] [place] [address] 98347 Iron Saturation 49 % Normal 20-55 [facility] Comment on above: Performed By: #### M GO, CHM7, IPB, CKB, TRIG, LDO #### [facility] (DEFAULT) [address] [place] [address] 17681 Total Iron Binding Capacity 140 mcg/dL Low 250-425 [facility] Comment on above: Performed By: #### M GO, CHM7, IPB, CKB, TRIG, LDO #### [facility] (DEFAULT) [address] [place] [address] 95449 Transferrin [Mass/Vol] 112 mg/dL Low 200-400 [facility] Comment on above: Performed By: #### M GO, CHM7, IPB, CKB, TRIG, LDO #### [facility] (DEFAULT) [address] [place] [address] 73543 MAGNESIUMon 05-09-2024 Magnesium [Mass/Vol] 2.0 mg/dL Normal 1.6-2.6 [facility] Comment on above: Performed By: #### M GO, CHM7, IPB, CKB, TRIG, LDO #### [facility] (DEFAULT) [address] [place] [address] Magnesium [Mass/Vol] 2 mg/dL 1.6 - 2 .6 mg/dL [facility] Magnesium [Mass/Vol] 2.0 mg/dL Normal 1.6-2.6 [facility] Comment on above: Performed By: #### M GO, CHM7, IPB, CKB, TRIG, LDO #### [facility] (DEFAULT) [address] [place] [address] 44271 MR Cervical spine WO and W c ontrast Brittani 05-09-2024 RADIOLOGY RADIOLOGY [facility] Radiology Study observation (narrative) [facility] MRI SPINE CERVICAL WITH AND [...] artifact in the upper thoracic spine. Normal [facility] No Panel Informationon 05-09 Interpretation and review of laboratory results Normal [facility] Interpretation and review of laboratory results Abnormal [facility] POC Sample Type CAPBL [facility] PHOSPHATE, INORGANICon 05-09 Phosphorous 3.7 mg/dL Normal 2.2-4.6 [facility] Comment on above: Performed By: #### M GO, CHM7, IPB, CKB, TRIG, LDO #### [facility] (DEFAULT) [address] [place] [address] Interpretation and review of laboratory results Normal [facility] Phosphate [Mass/Vol] 3.8 mg/dL 2.2 - 4 .6 mg/dL [facility] Phosphate [Mass/Vol] 3.8 mg/dL 2.2 - 4 .6 mg/dL [facility] Phosphorous 3.8 mg/dL Normal 2.2-4.6 [facility] Comment on above: Order Comment: If ph osphate level is less than or equal to 2.0 mg/dL, recheck phosphate 6 hours after replacement. Performed By: #### F CRAG #### [facility] (DEFAULT) [address] [place] [address] Phosphorous 3.8 mg/dL Normal 2.2-4.6 [facility] Comment on above: Performed By: #### M GO, CHM7, IPB, CKB, TRIG, LDO #### [facility] (DEFAULT) [address] [place] [address]894 US.doppler Upper extremity v ein - leftOrdered By: Pratik Hooper on 05-09-2024 [facility] Work Phone: US.doppler Upper extremity v ein - lefton 05-09-2024 Radiology Study observation (narrative) [facility] VENOUS BLOOD GASon Base excess Calc (Bld) [Moles/Vol] 2.1 mmol/L -3.0 - 3.0 mmol/L [facility] CO2 (Bld) [Partial pressure] 41 mm[Hg] [facility] HCO3 (Bld) [Moles/Vol] 27 mmol/L 22 - 29 mmol/L [facility] Interpretation and review of laboratory results Abnormal [facility] Oxygen (Bld) [Partial pressure] 51 mm[Hg] mm Hg [facility] Oxygen saturation in Blood 85 % High 70 - 80 % [facility] pH (Bld) 7.42 [pH] 7.32 - 7.43 [facility] Specimen source Nom (Unsp spec) Venous [facility] Base Excess 2.1 mmol/L Normal -3.0-3.0 [facility] Comment on above: Performed By: #### M GO, CHM7, IPB, CKB, TRIG, LDO #### [facility] (DEFAULT) [address] [place] [address] 42867 HCO3 (Bld) [Moles/Vol] 27 mmol/L Normal 22-29 [facility] Comment on above: Performed By: #### M GO, CHM7, IPB, CKB, TRIG, LDO #### [facility] (DEFAULT) [address] [place] [address] 36490 Oxygen saturation in Blood 85 % High 70-80 [facility] Comment on above: Performed By: #### M GO, CHM7, IPB, CKB, TRIG, LDO #### [facility] (DEFAULT) [address] [place] [address] 28120 pCO2, Venous 41 mm Hg Normal 36-52 [facility] Comment on above: Performed By: #### M GO, CHM7, IPB, CKB, TRIG, LDO #### [facility] (DEFAULT) [address] [place] [address] 97828 pH, Venous 7.42 Normal 7.32-7.43 [facility] Comment on above: Performed By: #### M GO, CHM7, IPB, CKB, TRIG, LDO #### [facility] (DEFAULT) [address] [place] [address] 27885 pO2, Venous 51 mm Hg Normal [facility] Comment on above: Result Comment: Veno us pO2 is not recommended for the evaluation of oxygen status, clinical correlation is recommended. Performed By: #### M GO, CHM7, IPB, CKB, TRIG, LDO #### [facility] (DEFAULT) [address] [place] [address] 13650 Specimen type Nom (Spec) Venous Normal [facility] Comment on above: Performed By: #### M GO, CHM7, IPB, CKB, TRIG, LDO #### [facility] (DEFAULT) [address] [place] [address] 78775 VITAMIN B12on 05-09-2024 Cobalamin (Vitamin B12) [Mass/Vol] 1322 pg/mL High 211-911 [facility] Comment on above: Result Comment: Test ing of Methylmalonic Acid and Intrinsic Factor Blocking Antibody are recommended if clinical suspicion for pernicious anemia due to B12 deficiency is high for patients with intermediate B12 levels (211 to 400 pg/mL) to rule out spurious heterophile antibodies. Performed By: #### M ROXY TELLO, IPB, CKB, TRIG, LDO #### [facility] (DEFAULT) [address] [address] C DIFFICILE TWO STEPon 05-08 C Difficile By Pcr Negative Normal Negative [facility] Comment on above: Order Comment: C. di [...] DNA) by PCR. Performed By: #### M OMER, ROXY, IPB, CKB, TRIG, LDO #### [facility] (DEFAULT) [address] [place] [address] 95708 CBC,PLATELETSon 05-08-2024 Erythrocyte distribution width (RBC) [Ratio] 20.5 % High 10.8 - 14.9 % [facility] [facility] Hematocrit (Bld) [Volume fraction] 28.9 % Low 34.9 - 44.3 % [facility] Hemoglobin (Bld) [Mass/Vol] 8.8 g/dL Low 11.4 - 15.2 g/dL [facility] Interpretation and review of laboratory results Abnormal [facility] MCH (RBC) [Entitic mass] 30.1 pg 25.9 - 33.9 pg [facility] MCHC (RBC) [Mass/Vol] 30.4 g/dL Low 31.4 - 35.9 g/dL [facility] MCV (RBC) [Entitic vol] 99 fL High 79.6 - 97.7 fL [facility] Platelet mean volume (Bld) [Entitic vol] [facility] Platelets (Bld) [#/Vol] 77 10*3/uL Low 150 - 393 K/uL [facility] RBC (Bld) [#/Vol] 2.92 10*6/uL Low [facility] WBC (Bld) [#/Vol] 15.34 10*3/uL High 3.99 - 11.19 K/uL [facility] Hematocrit (Bld) [Volume fraction] 28.9 % Low 34.9-44.3 [facility] Comment on above: Performed By: #### M GO, CHM7, IPB, CKB, TRIG, LDO #### [facility] (DEFAULT) [address] [place] [address] 83945 Hemoglobin (Bld) [Mass/Vol] 8.8 g/dL Low 11.4-15.2 [facility] Comment on above: Performed By: #### M GO, CHM7, IPB, CKB, TRIG, LDO #### [facility] (DEFAULT) [address] [place] [address] 14995 MCV (RBC) [Entitic vol] 99.0 fL High 79.6-97.7 [facility] Comment on above: Performed By: #### M GO, CHM7, IPB, CKB, TRIG, LDO #### [facility] (DEFAULT) [address] [place] [address] 90013 Mean Cell Hgb 30.1 pg Normal 25.9-33.9 [facility] Comment on above: Performed By: #### M GO, CHM7, IPB, CKB, TRIG, LDO #### [facility] (DEFAULT) [address] [place] [address] 24947 Mean Cell Hgb Conc 30.4 g/dL Low 31.4-35.9 [facility] Comment on above: Performed By: #### M GO, CHM7, IPB, CKB, TRIG, LDO #### [facility] (DEFAULT) [address] [place] [address] 69650 Mean Platelet Volume Normal [facility] Comment on above: Result Comment: Not measured Performed By: #### M GO, CHM7, IPB, CKB, TRIG, LDO #### [facility] (DEFAULT) [address] [place] [address] 79591 Platelets (Bld) [#/Vol] 77 10*3/uL Low 150-393 [facility] Comment on above: Performed By: #### M GO, CHM7, IPB, CKB, TRIG, LDO #### [place] [facility] (DEFAULT) [address] [place] [address] 38725 RBC (Bld) [#/Vol] 2.92 10*6/uL Low 3.91-5.04 [facility] Comment on above: Performed By: #### M GO, CHM7, IPB, CKB, TRIG, LDO #### [facility] (DEFAULT) [address] [place] [address] 74277 RBC Distribution 20.5 % High 10.8-14.[address] [facility] Comment on above: Performed By: #### M GO, CHM7, IPB, CKB, TRIG, LDO #### [facility] (DEFAULT) [address] [place] [address] 09643 WBC (Bld) [#/Vol] 15.34 10*3/uL High 3.99-11.19 [facility] Comment on above: Performed By: #### M GO, CHM7, IPB, CKB, TRIG, LDO #### [facility] (DEFAULT) [address] [place] [address] 14417 CHEM 7 (LYTES,BUN,CREA,GLUC) on 02-02-2025 Anion gap [Moles/Vol] 16 mmol/L 7 - 17 mmol/L [facility] Chloride [Moles/Vol] 106 mmol/L 98 - 10 8 mmol/L [facility] CO2 [Moles/Vol] 22 mmol/L 21 - 31 mmol/L [facility] Creatinine [Mass/Vol] 2.34 mg/dL High 0.50 - 1.20 mg/dL [facility] eGFR, CKD-EPI, Female 20 Low - PINF [facility] Glucose [Mass/Vol] 109 mg/dL High 70 - 99 mg/dL [facility] Interpretation and review of laboratory results Abnormal [facility] Osmolality Calc [Osmolality] 299 [facility] Potassium [Moles/Vol] 4 mmol/L 3.5 - 5.0 mmol/L [facility] Sodium [Moles/Vol] 140 mmol/L 135 - 145 mmol/L [facility] Urea nitrogen [Mass/Vol] 28 mg/dL High 7 - 25 mg/dL [facility] Urea nitrogen/Creatinine [Mass ratio] 12 mg/mg [facility] Anion gap [Moles/Vol] 16 mmol/L Normal 7-17 [facility] Comment on above: Performed By: #### M GO, CHM7, IPB, CKB, TRIG, LDO #### [facility] (DEFAULT) [address] [place] [address] Chloride [Moles/Vol] 106 mmol/L Normal 98-108 [facility] Comment on above: Performed By: #### M GO, CHM7, IPB, CKB, TRIG, LDO #### [facility] (DEFAULT) [address] [place] [address] CO2 [Moles/Vol] 22 mmol/L Normal 21-31 [facility] Comment on above: Performed By: #### M GO, CHM7, IPB, CKB, TRIG, LDO #### [facility] (DEFAULT) [address] [place] [address] Creatinine [Mass/Vol] 2.34 mg/dL High 0.50-1.20 [facility] Comment on above: Performed By: #### M GO, CHM7, IPB, CKB, TRIG, LDO #### [facility] (DEFAULT) [address] [place] [address] 44108 GFR/1.73 sq M.predicted among non-blacks MDRD (S/P/Bld) [Vol rate/Area] 20 mL/min/{1.73_m2} Low >=60 [facility] Comment on above: Result Comment: Repo rted eGFR is based on the CKD-EPI 2020 equation using creatinine, age, and sex. Performed By: #### M GO, CHM7, IPB, CKB, TRIG, LDO #### [facility] (DEFAULT) [address] [place] [address] 70389 Glucose [Mass/Vol] 109 mg/dL High 70-99 [facility] Comment on above: Performed By: #### M GO, CHM7, IPB, CKB, TRIG, LDO #### [facility] (DEFAULT) [address] [place] [address] 78100 Osmolality [Osmolality] 299 mosm/kg Normal 278-305 [facility] Comment on above: Performed By: #### M GO, CHM7, IPB, CKB, TRIG, LDO #### [facility] (DEFAULT) [address] [place] [address] 23077 Potassium [Moles/Vol] 4.0 mmol/L Normal 3.5-5.0 [facility] Comment on above: Performed By: #### M GO, CHM7, IPB, CKB, TRIG, LDO #### [facility] (DEFAULT) [address] [place] [address] 19740 Sodium [Moles/Vol] 140 mmol/L Normal 135-145 [facility] Comment on above: Performed By: #### M GO, CHM7, IPB, CKB, TRIG, LDO #### [facility] (DEFAULT) [address] [place] [address] Urea nitrogen [Mass/Vol] 28 mg/dL High 7-25 [facility] Comment on above: Performed By: #### M GO, CHM7, IPB, CKB, TRIG, LDO #### [facility] (DEFAULT) [address] [place] [address] Urea nitrogen/Creatinine [Mass ratio] 12 mg/mg Normal [facility] Comment on above: Performed By: #### M GO, CHM7, IPB, CKB, TRIG, LDO #### [facility] (DEFAULT) [address] [place] [address] 58263 GLUCOSE POCon 05-08-2024 Glucose [Mass/Vol] 76 mg/dL 70 - 99 mg/dL [facility] Glucose [Mass/Vol] 83 mg/dL 70 - 99 mg/dL [facility] Glucose [Mass/Vol] 102 mg/dL High 70 - 99 mg/dL [facility] Glucose [Mass/Vol] 109 mg/dL High 70 - 99 mg/dL [facility] Glucose [Mass/Vol] 107 mg/dL High 70 - 99 mg/dL [facility] Glucose [Mass/Vol] 113 mg/dL High 70 - 99 mg/dL [facility] Glucose [Mass/Vol] 92 mg/dL 70 - 99 mg/dL [facility] Glucose [Mass/Vol] 104 mg/dL High 70 - 99 mg/dL [facility] Glucose [Mass/Vol] 86 mg/dL 70 - 99 mg/dL [facility] Glucose [Mass/Vol] 91 mg/dL 70 - 99 mg/dL [facility] Glucose [Mass/Vol] 103 mg/dL High 70 - 99 mg/dL [facility] Glucose [Mass/Vol] 89 mg/dL 70 - 99 mg/dL [facility] Glucose [Mass/Vol] 109 mg/dL High 70 - 99 mg/dL [facility] Interpretation and review of laboratory results Abnormal [facility] POC Sample Type CAPBL [facility] IONIZED CALCIUM, WHOLE BLOOD Ordered By: Hakeem Butcher on 05-08-2024 Calcium.ionized (Bld) [Moles/Vol] 3.7 mg/dL Low 4.60 - 5.30 mg/dL [facility] Interpretation and review of laboratory results Abnormal [facility] IONIZED CALCIUM, WHOLE BLOOD on 05-08-2024 ICA 3.70 mg/dL Low 4.60-5.30 [facility] Comment on above: Order Comment: If io nized calcium is less than or equal to 3.0 mg/dL, recheck ionized calcium 2 hours after replacement. Performed By: #### M OMER, CHM7, IPB, CKB, TRIG, LDO #### [facility] (DEFAULT) [address] [place] [address] 67388 LOWER RESPIRATORY CULTURE, B ACTERIALon 05-08-2024 Bacteria identified Cx Nom (Unsp spec) Normal [facility] Comment on above: Result Comment: Grow 4470 Light Growth Common oropharyngeal microbes Performed By: #### M OMER, CHM7, IPB, CKB, TRIG, LDO #### [facility] (DEFAULT) [address] [place] [address] 72935 Microscopic observation Gram stain Nom (Unsp spec) Normal [facility] Comment on above: Result Comment: Neut rophils, Heavy Contaminating bacteria and epithelials present Specimen is of optimum quality Performed By: #### M OMER, CHM7, IPB, CKB, TRIG, LDO #### [facility] (DEFAULT) [address] [place] [address] MAGNESIUMon 05-08-2024 Magnesium [Mass/Vol] 2.3 mg/dL 1.6 - 2 .6 mg/dL [facility] Magnesium [Mass/Vol] 2.3 mg/dL Normal 1.6-2.6 [facility] Comment on above: Performed By: #### G ASVL #### [facility] (DEFAULT) [address] [place] [address] 77621 No Panel Informationon 05-08 Interpretation and review of laboratory results Abnormal [facility] POC Sample Type CAPBL [facility] POC Sample Type VENO [facility] Interpretation and review of laboratory results Abnormal [facility] POC Sample Type CAPBL [facility] Interpretation and review of laboratory results Normal [facility] PHOSPHATE, INORGANICon 05-08 Interpretation and review of laboratory results Normal [facility] Phosphate [Mass/Vol] 3.3 mg/dL 2.2 - 4 .6 mg/dL [facility] Phosphorous 3.3 mg/dL Normal 2.2-4.6 [facility] Comment on above: Order Comment: If ph osphate level is less than or equal to 2.0 mg/dL, recheck phosphate 6 hours after replacement. Performed By: #### M GO, CHM7, IPB, CKB, TRIG, LDO #### [facility] (DEFAULT) [address] [place] [address] 39936 Phosphate [Mass/Vol] 3.6 mg/dL 2.2 - 4 .6 mg/dL [facility] Phosphorous 3.6 mg/dL Normal 2.2-4.6 [facility] Comment on above: Performed By: #### M GO, CHM7, IPB, CKB, TRIG, LDO #### [facility] (DEFAULT) [address] [place] [address] 22382 POTASSIUMon 05-08-2024 Interpretation and review of laboratory results Normal [facility] Potassium [Moles/Vol] 3.9 mmol/L 3.5 - 5.0 mmol/L [facility] Potassium [Moles/Vol] 3.9 mmol/L Normal 3.5-5.0 [facility] Comment on above: Order Comment: If po tassium level is less than or equal to 3.0 mmol/L, recheck potassium 4 hours after replacement. Performed By: #### M GO, CHM7, IPB, CKB, TRIG, LDO #### [facility] (DEFAULT) [address] [place] [address] Portable XR Chest [facility]son RADIOLOGY RADIOLOGY [facility] Radiology Study observation (narrative) [facility] URINALYSIS REFLEX TO CULTURE PERFORMABLEon 05-08-2024 Appearance (U) Clear Clear [facility] Bacteria LM Ql (Urine sed) ABSENT ABSENT [facility] Color (U) Yellow Yellow [facility] Epithelial cells.squamous LM Ql (Urine sed) 0-2/hpf 0-2/hpf, 3-5/hpf = 1+ [facility] Glucose Test strip (U) [Mass/Vol] Negative Negative [facility] Interpretation and review of laboratory results Abnormal [facility] Ketones (U) [Mass/Vol] Negative Negative [facility] Leukocyte esterase Test strip Ql (U) Trace Abnormal Negative [facility] Nitrite Ql (U) Negative Negative [facility] pH (U) 5.0 [pH] 5.0 - 7.0 [facility] Protein (U) [Mass/Vol] 30 mg/dL Abnormal Negative [facility] RBC (U) [#/Vol] Moderate Abnormal Negative [facility] RBC LM.HPF (Urine sed) [#/Area] /[HPF] Abnormal [facility] Specific gravity (U) [Rel density] 1.008 1.001 - 1.035 [facility] Urobilinogen (U) [Mass/Vol] 0.2 E.U./dL 0.2 E.U/dL, 1.0 E.U/dL [facility] WBC LM.HPF (Urine sed) [#/Area] 0 - 5 [facility] Appearance (U) Clear Normal Clear [facility] Comment on above: Order Comment: For i ndwelling catheters, specimen collection is acceptable on catheter day 1 and 2 only. ? Performed By: #### M GO, CHM7, IPB, CKB, TRIG, LDO #### [facility] (DEFAULT) [address] [place] [address] 45823 Bacteria ABSENT Normal ABSENT [facility] Comment on above: Order Comment: For i ndwelling catheters, specimen collection is acceptable on catheter day 1 and 2 only. ? Performed By: #### M GO, CHM7, IPB, CKB, TRIG, LDO #### [facility] (DEFAULT) [address] [place] [address] 17743 Blood Urine Moderate Abnormal Negative [facility] Comment on above: Order Comment: For i ndwelling catheters, specimen collection is acceptable on catheter day 1 and 2 only. ? Performed By: #### M GO, CHM7, IPB, CKB, TRIG, LDO #### [facility] (DEFAULT) [address] [place] [address] 20741 Color (U) Yellow Normal Yellow [facility] Comment on above: Order Comment: For i ndwelling catheters, specimen collection is acceptable on catheter day 1 and 2 only. ? Performed By: #### M GO, CHM7, IPB, CKB, TRIG, LDO #### [facility] (DEFAULT) [address] [place] [address] 29934 Glucose Ql (U) Negative Normal Negative [facility] Comment on above: Order Comment: For i ndwelling catheters, specimen collection is acceptable on catheter day 1 and 2 only. ? Performed By: #### M GO, CHM7, IPB, CKB, TRIG, LDO #### [facility] (DEFAULT) [address] [place] [address] 00453 Ketones Ql (U) Negative Normal Negative [facility] Comment on above: Order Comment: For i ndwelling catheters, specimen collection is acceptable on catheter day 1 and 2 only. ? Performed By: #### M GO, CHM7, IPB, CKB, TRIG, LDO #### [facility] (DEFAULT) [address] [place] [address] 82284 Leukocyte esterase Test strip Ql (U) Trace Abnormal Negative [facility] Comment on above: Order Comment: For i ndwelling catheters, specimen collection is acceptable on catheter day 1 and 2 only. ? Performed By: #### M GO, CHM7, IPB, CKB, TRIG, LDO #### [facility] (DEFAULT) [address] [place] [address] 72459 Nitrites Urine Negative Normal Negative [facility] Comment on above: Order Comment: For i ndwelling catheters, specimen collection is acceptable on catheter day 1 and 2 only. ? Performed By: #### M GO, CHM7, IPB, CKB, TRIG, LDO #### [facility] (DEFAULT) [address] [place] [address] 09317 pH (U) 5.0 [pH] Normal 5.0-7.0 [facility] Comment on above: Order Comment: For i ndwelling catheters, specimen collection is acceptable on catheter day 1 and 2 only. ? Performed By: #### M GO, CHM7, IPB, CKB, TRIG, LDO #### [facility] (DEFAULT) [address] [place] [address] 25878 Protein Urine 30 mg/dL Abnormal Negative [facility] Comment on above: Order Comment: For i ndwelling catheters, specimen collection is acceptable on catheter day 1 and 2 only. ? Performed By: #### M GO, CHM7, IPB, CKB, TRIG, LDO #### [facility] (DEFAULT) [address] [place] [address] 27862 RBC LM.HPF (Urine sed) [#/Area] /[HPF] Abnormal 0-2 [facility] Comment on above: Order Comment: For i ndwelling catheters, specimen collection is acceptable on catheter day 1 and 2 only. ? Performed By: #### M GO, CHM7, IPB, CKB, TRIG, LDO #### [facility] (DEFAULT) [address] [place] [address] 78084 Specific [place] Urine 1.008 Normal 1.001 -1.03 5 [facility] Comment on above: Order Comment: For i ndwelling catheters, specimen collection is acceptable on catheter day 1 and 2 only. ? Performed By: #### M GO, CHM7, IPB, CKB, TRIG, LDO #### [facility] (DEFAULT) [address] [place] [address] 43687 Squamous/Epithelial Cells 0-2/hpf Normal 0-2/hpf, 3-5/hpf = 1+ [facility] Comment on above: Order Comment: For i ndwelling catheters, specimen collection is acceptable on catheter day 1 and 2 only. ? Performed By: #### M GO, CHM7, IPB, CKB, TRIG, LDO #### [facility] (DEFAULT) [address] [place] [address] 32343 Urobilinogen Urine 0.2 E.U./dL Normal 0.2 E.U/dL, 1.0 E.U/dL [facility] Comment on above: Order Comment: For i ndwelling catheters, specimen collection is acceptable on catheter day 1 and 2 only. ? Performed By: #### M GO, CHM7, IPB, CKB, TRIG, LDO #### [facility] (DEFAULT) [address] [place] [address] 59887 WBC Urine 0 - 5 Normal 0 - 5 [facility] Comment on above: Order Comment: For i ndwelling catheters, specimen collection is acceptable on catheter day 1 and 2 only. ? Performed By: #### M GO, CHM7, IPB, CKB, TRIG, LDO #### [facility] (DEFAULT) [address] [place] [address] 90292 VENOUS BLOOD GASon 5 Base excess Calc (Bld) [Moles/Vol] -1.9000 mmol/L -3.0 - 3.0 mmol/L [facility] CO2 (Bld) [Partial pressure] 43 mm[Hg] [facility] HCO3 (Bld) [Moles/Vol] 24 mmol/L 22 - 29 mmol/L [facility] Oxygen (Bld) [Partial pressure] 40 mm[Hg] mm Hg [facility] Oxygen saturation in Blood 71 % 70 - 80 % [facility] pH (Bld) 7.35 [pH] 7.32 - 7.43 [facility] Specimen source Nom (Unsp spec) Venous [facility] Base Excess -1.9 mmol/L Normal -3.0-3.0 [facility] Comment on above: Performed By: #### M GO, CHM7, IPB, CKB, TRIG, LDO #### [facility] (DEFAULT) [address] [place] [address] 95193 HCO3 (Bld) [Moles/Vol] 24 mmol/L Normal 22-29 [facility] Comment on above: Performed By: #### M GO, CHM7, IPB, CKB, TRIG, LDO #### [facility] (DEFAULT) [address] [place] [address] 26547 Oxygen saturation in Blood 71 % Normal 70-80 [facility] Comment on above: Performed By: #### M GO, CHM7, IPB, CKB, TRIG, LDO #### [facility] (DEFAULT) [address] [place] [address] 53278 pCO2, Venous 43 mm Hg Normal 36-52 [facility] Comment on above: Performed By: #### M GO, CHM7, IPB, CKB, TRIG, LDO #### [facility] (DEFAULT) [address] [place] [address] 67804 pH, Venous 7.35 Normal 7.32-7.43 [facility] Comment on above: Performed By: #### M GO, CHM7, IPB, CKB, TRIG, LDO #### [facility] (DEFAULT) [address] [place] [address] 73225 pO2, Venous 40 mm Hg Normal [facility] Comment on above: Result Comment: Veno us pO2 is not recommended for the evaluation of oxygen status, clinical correlation is recommended. Performed By: #### M GO, CHM7, IPB, CKB, TRIG, LDO #### [facility] (DEFAULT) [address] [place] [address] Specimen type Nom (Spec) Venous Normal [facility] Comment on above: Performed By: #### M GO, CHM7, IPB, CKB, TRIG, LDO #### [facility] (DEFAULT) [address] [place] [address] XR CHEST 1 VIEW PORTABLEon 0 05-08-2024 XR CHEST 1 VIEW PORTABLE EXAM: XR CHEST 1 VIEW PORTABLE, 05/08/2024 09:25 AM COMPARISON: May 07, 2024 CLINICAL INDICATIONS: C/f new pneumonia given coughing, fever and increased oxygen requirement RELEVANT CLINICAL HISTORY: FINDINGS: (Adequate technique) The endotracheal tube is 2.7 cm above the lisa. NG tube terminates. The diaphragm, outside the [id number]. The left CVC is removed. Prosthetic right [...] seen with early edema or bronchitis. Normal [facility] Bacteria identified Cx Nom ( Body fld)Ordered By: Jacki Lopez on 05-07-2024 Bacteria identified Cx Nom (Unsp spec) NO GROWTH DAY 2 OF 2 [facility] Microscopic observation Other stain Nom (Unsp spec) Cytocentrifuge preparation [facility] Microscopic observation Other stain Nom (Unsp spec) Neutrophils, Light [facility] Microscopic observation Other stain Nom (Unsp spec) Mononuclear cells present [facility] Microscopic observation Other stain Nom (Unsp spec) Red Blood Cells Present [facility] Microscopic observation Other stain Nom (Unsp spec) No organisms seen [facility] Bacteria identified Respirat ory culture Nom (Unsp spec)Ordered By: Isadora Byrne on 05-07-2024 Bacteria identified Cx Nom (Unsp spec) Growth [facility] Bacteria identified Cx Nom (Unsp spec) Light Growth Common oropharyngeal microbes [facility] Microscopic observation Other stain Nom (Unsp spec) [facility], [facility]sc[facility] Other stain Nom (Unsp spec) Contaminating bacteria and epithelials present [facility] Microscopic observation Other stain Nom (Unsp spec) Specimen is of optimum quality [facility] CBC,PLATELETSon 05-07-2024 Erythrocyte distribution width (RBC) [Ratio] 18.5 % High 10.8 - 14.9 % [facility] Hematocrit (Bld) [Volume fraction] 24 % Low 34.9 - 44.3 % [facility] [facility] Hemoglobin (Bld) [Mass/Vol] 7.5 g/dL Low 11.4 - 15.2 g/dL [facility] Interpretation and review of laboratory results Abnormal [facility] MCH (RBC) [Entitic mass] 31.5 pg 25.9 - 33.9 pg [facility] MCHC (RBC) [Mass/Vol] 31.3 g/dL Low 31.4 - 35.9 g/dL [facility] MCV (RBC) [Entitic vol] 100.8 fL High 79.6 - 97.7 fL [facility] Platelet mean volume (Bld) [Entitic vol] 11.8 fL 8.5 - 12.2 fL [facility] Platelets (Bld) [#/Vol] 73 10*3/uL Low 150 - 393 K/uL [facility] RBC (Bld) [#/Vol] 2.38 10*6/uL Low [facility] WBC (Bld) [#/Vol] 16.89 10*3/uL High 3.99 - 11.19 K/uL [facility] Hematocrit (Bld) [Volume fraction] 24.0 % Low 34.9-44.3 [facility] Comment on above: Performed By: #### F CRAG #### [facility] (DEFAULT) [address] [place] [address] 25897 Hemoglobin (Bld) [Mass/Vol] 7.5 g/dL Low 11.4-15.2 [facility] Comment on above: Performed By: #### F CRAG #### [facility] (DEFAULT) [address] [place] [address] 38657 MCV (RBC) [Entitic vol] 100.8 fL High 79.6-97.7 [facility] Comment on above: Performed By: #### F CRAG #### [facility] (DEFAULT) [address] [place] [address] 16193 Mean Cell Hgb 31.5 pg Normal 25.9-33.9 [facility] Comment on above: Performed By: #### F CRAG #### [facility] (DEFAULT) [address] [place] [address] 06384 Mean Cell Hgb Conc 31.3 g/dL Low 31.4-35.9 [facility] Comment on above: Performed By: #### F CRAG #### [facility] (DEFAULT) [address] [place] [address] 05815 Platelet mean volume (Bld) [Entitic vol] 11.8 fL Normal 8.5-12.2 [facility] Comment on above: Performed By: #### F CRAG #### [facility] (DEFAULT) [address] [place] [address] 75413 Platelets (Bld) [#/Vol] 73 10*3/uL Low 150-393 [facility] Comment on above: Performed By: #### F CRAG #### [facility] (DEFAULT) [address] [place] [address] 77762 RBC (Bld) [#/Vol] 2.38 10*6/uL Low 3.91-5.04 [facility] Comment on above: Performed By: #### F CRAG #### [facility] (DEFAULT) [address] [place] [address] 95154 RBC Distribution 18.5 % High 10.8-14.[address] [facility] Comment on above: Performed By: #### F CRAG #### [facility] (DEFAULT) [address] [place] [address] 93585 WBC (Bld) [#/Vol] 16.89 10*3/uL High 3.99-11.19 [facility] Comment on above: Performed By: #### F CRAG #### [facility] (DEFAULT) [address] [place] [address] 36769 Erythrocyte distribution width (RBC) [Ratio] 16.8 % High 10.8 - 14.9 % [facility] Hematocrit (Bld) [Volume fraction] 19.6 % Low 34.9 - 44.3 % [facility] Hemoglobin (Bld) [Mass/Vol] 5.8 g/dL Critically low 11.4 - 15.2 g/dL [facility] Interpretation and review of laboratory results Abnormal [facility] MCH (RBC) [Entitic mass] 31.7 pg 25.9 - 33.9 pg [facility] MCHC (RBC) [Mass/Vol] 29.6 g/dL Low 31.4 - 35.9 g/dL [facility] MCV (RBC) [Entitic vol] 107.1 fL High 79.6 - 97.7 fL [facility] Platelet mean volume (Bld) [Entitic vol] [facility] Platelets (Bld) [#/Vol] 60 10*3/uL Low 150 - 393 K/uL [facility] RBC (Bld) [#/Vol] 1.83 10*6/uL Low [facility] WBC (Bld) [#/Vol] 14.66 10*3/uL High 3.99 - 11.19 K/uL [facility] Hematocrit (Bld) [Volume fraction] 19.6 % Low 34.9-44.3 [facility] Comment on above: Performed By: #### M GO, CHM7, IPB, CKB, TRIG, LDO #### [facility] (DEFAULT) [address] [place] [address] 99429 Hemoglobin (Bld) [Mass/Vol] 5.8 g/dL Critically low 11.4-15.2 [facility] Comment on above: Result Comment: This result has been called to Beto Richard RN by bala on 05/07/2024 02:38:23, and has been read back. Performed By: #### M GO, CHM7, IPB, CKB, TRIG, LDO #### [facility] (DEFAULT) [address] [place] [address] 34435 MCV (RBC) [Entitic vol] 107.1 fL High 79.6-97.7 [facility] Comment on above: Performed By: #### M GO, CHM7, IPB, CKB, TRIG, LDO #### [facility] (DEFAULT) [address] [place] [address] 14053 Mean Cell Hgb 31.7 pg Normal 25.9-33.9 [facility] Comment on above: Performed By: #### M GO, CHM7, IPB, CKB, TRIG, LDO #### [facility] (DEFAULT) [address] [place] [address] 72275 Mean Cell Hgb Conc 29.6 g/dL Low 31.4-35.9 [facility] Comment on above: Performed By: #### M GO, CHM7, IPB, CKB, TRIG, LDO #### [facility] (DEFAULT) [address] [place] [address] 69795 Mean Platelet Volume Normal [facility] Comment on above: Result Comment: Not measured Performed By: #### M GO, CHM7, IPB, CKB, TRIG, LDO #### [facility] (DEFAULT) [address] [place] [address] 56158 Platelets (Bld) [#/Vol] 60 10*3/uL Low 150-393 [facility] Comment on above: Performed By: #### M GO, CHM7, IPB, CKB, TRIG, LDO #### [facility] (DEFAULT) [address] [place] [address] 56704 RBC (Bld) [#/Vol] 1.83 10*6/uL Low 3.91-5.04 [facility] Comment on above: Performed By: #### M GO, CHM7, IPB, CKB, TRIG, LDO #### [facility] (DEFAULT) [address] [place] [address] 70151 RBC Distribution 16.8 % High 10.8-14.[address] [facility] Comment on above: Performed By: #### M GO, CHM7, IPB, CKB, TRIG, LDO #### [facility] (DEFAULT) [address] [place] [address] 13452 WBC (Bld) [#/Vol] 14.66 10*3/uL High 3.99-11.19 [facility] Comment on above: Performed By: #### M GO, CHM7, IPB, CKB, TRIG, LDO #### [facility] (DEFAULT) [address] [place] [address] 75988 CHEM 7 (LYTES,BUN,CREA,GLUC) on 05-07-2024 Anion gap [Moles/Vol] 11 mmol/L 7 - 17 mmol/L [facility] Chloride [Moles/Vol] 106 mmol/L 98 - 10 8 mmol/L [facility] CO2 [Moles/Vol] 24 mmol/L 21 - 31 mmol/L [facility] Creatinine [Mass/Vol] 2.11 mg/dL High 0.50 - 1.20 mg/dL [facility] eGFR, CKD-EPI, Female 23 Low - PINF [facility] Glucose [Mass/Vol] 88 mg/dL 70 - 99 mg/dL [facility] Osmolality Calc [Osmolality] 290 [facility] Potassium [Moles/Vol] 3.6 mmol/L 3.5 - 5.0 mmol/L [facility] Sodium [Moles/Vol] 137 mmol/L 135 - 145 mmol/L [facility] Urea nitrogen [Mass/Vol] 24 mg/dL 7 - 25 mg/dL [facility] Urea nitrogen/Creatinine [Mass ratio] 11 mg/mg [facility] Anion gap [Moles/Vol] 11 mmol/L Normal 7-17 [facility] Comment on above: Performed By: #### M GO, CHM7, IPB, CKB, TRIG, LDO #### [facility] (DEFAULT) [address] [place] [address] 49175 Chloride [Moles/Vol] 106 mmol/L Normal 98-108 [facility] Comment on above: Performed By: #### M GO, CHM7, IPB, CKB, TRIG, LDO #### [facility] (DEFAULT) [address] [place] [address] 66434 CO2 [Moles/Vol] 24 mmol/L Normal 21-31 [facility] Comment on above: Performed By: #### M GO, CHM7, IPB, CKB, TRIG, LDO #### [facility] (DEFAULT) [address] [place] [address] 37046 Creatinine [Mass/Vol] 2.11 mg/dL High 0.50-1.20 [facility] Comment on above: Performed By: #### M GO, CHM7, IPB, CKB, TRIG, LDO #### [facility] (DEFAULT) [address] [place] [address] 04308 GFR/1.73 sq M.predicted among non-blacks MDRD (S/P/Bld) [Vol rate/Area] 23 mL/min/{1.73_m2} Low >=60 [facility] Comment on above: Result Comment: Repo rted eGFR is based on the CKD-EPI 2020 equation using creatinine, age, and sex. Performed By: #### M GO, CHM7, IPB, CKB, TRIG, LDO #### [facility] (DEFAULT) [address] [place] [address] 40246 Glucose [Mass/Vol] 88 mg/dL Normal 70-99 [facility] Comment on above: Performed By: #### M GO, CHM7, IPB, CKB, TRIG, LDO #### [facility] (DEFAULT) [address] [place] [address] 73563 Osmolality [Osmolality] 290 mosm/kg Normal 278-305 [facility] Comment on above: Performed By: #### M GO, CHM7, IPB, CKB, TRIG, LDO #### [facility] (DEFAULT) [address] [place] [address] 77129 Potassium [Moles/Vol] 3.6 mmol/L Normal 3.5-5.0 [facility] Comment on above: Performed By: #### M GO, CHM7, IPB, CKB, TRIG, LDO #### [facility] (DEFAULT) [address] [place] [address] 90386 Sodium [Moles/Vol] 137 mmol/L Normal 135-145 [facility] Comment on above: Performed By: #### M GO, CHM7, IPB, CKB, TRIG, LDO #### [facility] (DEFAULT) [address] [place] [address] 55860 Urea nitrogen [Mass/Vol] 24 mg/dL Normal 7-25 [facility] Comment on above: Performed By: #### M GO, CHM7, IPB, CKB, TRIG, LDO #### [facility] (DEFAULT) [address] [place] [address] 65818 Urea nitrogen/Creatinine [Mass ratio] 11 mg/mg Normal [facility] Comment on above: Performed By: #### M GO, CHM7, IPB, CKB, TRIG, LDO #### [facility] (DEFAULT) [address] [place] [address] 31848 CKon 05-07-2024 CK [Catalytic activity/Vol] 57 U/L 30 - 184 U/L [facility] CK [Catalytic activity/Vol] 57 U/L Normal 30-184 [facility] Comment on above: Order Comment: While on Propofol. Performed By: #### M GO, CHM7, IPB, CKB, TRIG, LDO #### [facility] (DEFAULT) [address] [place] [address] 90075 CONTINUOUS CARDIAC MONITORIN G STRIPOrdered By: Unassigned Pacs on 05-07-2024 [facility] Work Phone: FIBRINOGEN, CLOTTABLEon -0 Fibrinogen Coag (PPP) [Mass/Vol] 426 mg/dL High 220 - 410 mg/dL [facility] Interpretation and review of laboratory results Abnormal [facility] Fibrinogen-Clottable 426 mg/dL High 220-410 [facility] Comment on above: Order Comment: "Fibr inogen levels may be altered by the normal physiologic changes of and should be interpreted considering reference ranges specific to gestational age."First Trimester: 244-510 mg/dLSecond Trimester: 291-538 mg/dLThird Trimester/: 373-619 mg/dLReference: Santiago M, Sarah LG, Anne FG. and laboratory studies: a reference table for clinicians. Obstet Gynecol 2009; 114:1326. Result Comment: Func tional Fibrinogen (activity) levels can be affected by direct thrombin inhibitors such as heparins (>2.0 IU/ml) and dabigatran. Abnormal results should be interpreted with caution. Performed By: #### G ASVL #### [facility] (DEFAULT) [address] [place] [address] 87736 HAPTOGLOBINon 05-07-2024 Haptoglobin [Mass/Vol] 306 mg/dL High 44 - 215 mg/dL [facility] Interpretation and review of laboratory results Abnormal [facility] HEMOGLOBIN & HEMATOCRITon Hematocrit (Bld) [Volume fraction] 27.3 % Low 34.9 - 44.3 % [facility] Hemoglobin (Bld) [Mass/Vol] 8.5 g/dL Low 11.4 - 15.2 g/dL [facility] Interpretation and review of laboratory results Abnormal [facility] Hematocrit (Bld) [Volume fraction] 27.3 % Low 34.9-44.3 [facility] Comment on above: Performed By: #### M OMER, CHM7, IPB, CKB, TRIG, LDO #### [facility] (DEFAULT) [address] [place] [address] 02390 Hemoglobin (Bld) [Mass/Vol] 8.5 g/dL Low 11.4-15.2 [facility] Comment on above: Performed By: #### M OMER, CHM7, IPB, CKB, TRIG, LDO #### [facility] (DEFAULT) [address] [place] [address] 72204 Hematocrit (Bld) [Volume fraction] 20 % Low 34.9 - 44.3 % [facility] Hemoglobin (Bld) [Mass/Vol] 6.1 g/dL Critically low 11.4 - 15.2 g/dL [facility] Interpretation and review of laboratory results Abnormal [facility] Hematocrit (Bld) [Volume fraction] 20.0 % Low 34.9-44.3 [facility] Comment on above: Order Comment: Mason e obtain one hour after completing pRBC infusion Performed By: #### M GO, CHM7, IPB, CKB, TRIG, LDO #### [facility] (DEFAULT) [address] [place] [address] 42309 Hemoglobin (Bld) [Mass/Vol] 6.1 g/dL Critically low 11.4-15.2 [facility] Comment on above: Order Comment: Pleas e obtain one hour after completing pRBC infusion Result Comment: This result has been called to Beto Richard RN by bala on 05/07/2024 06:56:52, and has been read back. Performed By: #### M GO, CHM7, IPB, CKB, TRIG, LDO #### [facility] (DEFAULT) [address] [place] [address] 39867 IONIZED CALCIUM, WHOLE BLOOD Ordered By: Truong Allen on 05-07-2024 Calcium.ionized (Bld) [Moles/Vol] 4.14 mg/dL Low 4.60 - 5.30 mg/dL [facility] Interpretation and review of laboratory results Abnormal [facility] IONIZED CALCIUM, WHOLE BLOOD on 05-07-2024 ICA 4.14 mg/dL Low 4.60-5.30 [facility] Comment on above: Order Comment: If io nized calcium is less than or equal to 3.0 mg/dL, recheck ionized calcium 2 hours after replacement. Performed By: #### G ASVL #### [facility] (DEFAULT) [address] [place] [address] 28511 ICA 4.32 mg/dL Low 4.60-5.30 [facility] Comment on above: Performed By: #### F CRAG #### [facility] (DEFAULT) [address] [place] [address] 90850 IONIZED CALCIUM, WHOLE BLOOD Ordered By: Keyana Kumar on 05-07-2024 Calcium.ionized (Bld) [Moles/Vol] 4.32 mg/dL Low 4.60 - 5.30 mg/dL [facility] Interpretation and review of laboratory results Abnormal [facility] LACTATE DEHYDROGENASEon 02 LDH Lactate to pyruvate reaction [Catalytic activity/Vol] 265 U/L High 100 - 190 U/L [facility] LD Total 265 U/L High 100-190 [facility] Comment on above: Performed By: #### M GO, CHM7, IPB, CKB, TRIG, LDO #### [facility] (DEFAULT) [address] [place] [address] 90900 MAGNESIUMon 05-07-2024 Magnesium [Mass/Vol] 1.7 mg/dL 1.6 - 2 .6 mg/dL [facility] Magnesium [Mass/Vol] 1.7 mg/dL Normal 1.6-2.6 [facility] Comment on above: Performed By: #### M GO, CHM7, IPB, CKB, TRIG, LDO #### [facility] (DEFAULT) [address] [place] [address] 59530 Magnesium [Mass/Vol] 1.8 mg/dL 1.6 - 2 .6 mg/dL [facility] Magnesium [Mass/Vol] 1.8 mg/dL Normal 1.6-2.6 [facility] Comment on above: Performed By: #### M GO, CHM7, IPB, CKB, TRIG, LDO #### [facility] (DEFAULT) [address] [place] [address] 13132 MR Brain WO and W contrast I Praneeth 05-07-2024 RADIOLOGY RADIOLOGY [facility] MR Brain WO and W contrast I VOrdered By: Michael De León on 05-07-2024 [facility] Work Phone: MRI BRAIN WITH AND WITHOUT C [facility] 05-07-2024 MRI BRAIN WITH AND WITHOUT [...] or potentially related to postictal changes. Normal [facility] No Panel Informationon 05-07 Interpretation and review of laboratory results Normal [facility] Interpretation and review of laboratory results Abnormal [facility] Interpretation and review of laboratory results Normal [facility] Interpretation and review of laboratory results Abnormal [facility] PHOSPHATE, INORGANICon 05-07 Interpretation and review of laboratory results Normal [facility] Phosphate [Mass/Vol] 3.6 mg/dL 2.2 - 4 .6 mg/dL [facility] Phosphorous 3.6 mg/dL Normal 2.2-4.6 [facility] Comment on above: Performed By: #### M GO, CHM7, IPB, CKB, TRIG, LDO #### [facility] (DEFAULT) [address] [place] [address] Phosphate [Mass/Vol] 3.7 mg/dL 2.2 - 4 .6 mg/dL [facility] Phosphorous 3.7 mg/dL Normal 2.2-4.6 [facility] Comment on above: Performed By: #### M GO, CHM7, IPB, CKB, TRIG, LDO #### [facility] (DEFAULT) [address] [place] [address] 17972 Phosphate [Mass/Vol] 3.2 mg/dL 2.2 - 4 .6 mg/dL [facility] Phosphorous 3.2 mg/dL Normal 2.2-4.6 [facility] Comment on above: Performed By: #### M GO, CHM7, IPB, CKB, TRIG, LDO #### [facility] (DEFAULT) [address] [place] [address] 22928 PLATELET COUNTon 05-07-2024 Platelet mean volume (Bld) [Entitic vol] [facility] Platelets (Bld) [#/Vol] 63 10*3/uL Low 150 - 393 K/uL [facility] Mean Platelet Volume Normal [facility] Comment on above: Result Comment: Not measured Performed By: #### M GO, CHM7, IPB, CKB, TRIG, LDO #### [facility] (DEFAULT) [address] [place] [address] 64783 Platelets (Bld) [#/Vol] 63 10*3/uL Low 150-393 [facility] Comment on above: Performed By: #### M GO, CHM7, IPB, CKB, TRIG, LDO #### [facility] (DEFAULT) [address] [place] [address] 45132 POTASSIUMon 05-07-2024 Potassium [Moles/Vol] 3.9 mmol/L 3.5 - 5.0 mmol/L [facility] Potassium [Moles/Vol] 3.9 mmol/L Normal 3.5-5.0 [facility] Comment on above: Order Comment: If po tassium level is less than or equal to 3.0 mmol/L, recheck potassium 4 hours after replacement. Performed By: #### M GO, CHM7, IPB, CKB, TRIG, LDO #### [facility] (DEFAULT) [address] [place] [address] PREPARE TO TRANSFUSE RED BLO OD CELLSon 05-07-2024 [facility] BLOOD COMPONENT TYPE Red Cells, Leukoreduced [facility] EXPIRATION DATE [facility] Product ABO/RH(D) ABPOS [facility] Product ABO/RH(D) NUMBER 8400 [facility] PRODUCT CODE [id number] [facility] UNIT NUMBER [id number] [facility] UNIT STATUS transfused [facility] ABO[facility]RH[facility]D) [facility] BLOOD COMPONENT TYPE Red Cells, Leukoreduced [facility] EXPIRATION DATE [facility] Product ABO/RH(D) ABPOS [facility] Product ABO/RH(D) NUMBER 8400 [facility] PRODUCT CODE [id number] [facility] UNIT NUMBER [id number] [facility] UNIT STATUS transfused [facility] PT,INR,PTTon 05-07-2024 aPTT Coag (PPP) [Time] 35.2 s High [facility] INR Coag (Bld) [Relative time] 1.2 {INR} High 0.9 - 1.1 [facility] Interpretation and review of laboratory results Abnormal [facility] PT Coag (PPP) [Time] 14.8 s High [facility] aPTT Coag (Bld) [Time] 35.2 s High 24.0-34.3 [facility] Comment on above: Performed By: #### G ASVL #### [facility] (DEFAULT) [address] [place] [address] INR Coag (PPP) [Relative time] 1.2 {INR} High 0.9-1.1 [facility] Comment on above: Performed By: #### G ASVL #### [facility] (DEFAULT) [address] [place] [address] 88837 PT Coag (PPP) [Time] 14.8 s High 11.9-14.2 [facility] Comment on above: Performed By: #### G ASVL #### [facility] (DEFAULT) [address] [place] [address] 68964 Portable XR Chest Viewson RADIOLOGY RADIOLOGY [facility] Radiology Study observation (narrative) [facility] Portable XR Chest ViewsOrder ed By: Josy Arrington on 05-07-2024 [facility] Work Phone: RETICULOCYTESon 05-07-2024 Reticulocytes (Bld) [#/Vol] 0.0735 10*3/uL [facility] Reticulocytes/100 RBC (Bld) 3.75 % High 0.74 - 2.54 % [facility] Retic Absolute 0.0735 M/uL Normal 0.0324-0.1 142 [facility] Comment on above: Performed By: #### M GO, CHM7, IPB, CKB, TRIG, LDO #### [facility] (DEFAULT) [address] [place] [address] 08573 Retic Count 3.75 % High 0.74-2.54 [facility] Comment on above: Performed By: #### M GO, CHM7, IPB, CKB, TRIG, LDO #### [facility] (DEFAULT) [address] [place] [address] 71124 SCHISTOCYTESon 05-07-2024 Schistocytes LM Ql (Bld) Slide reviewed, no schistocytes seen [facility] BKR SCHISTOCYTES PATH Slide reviewed, no schistocytes seen Normal [facility] Comment on above: Performed By: #### M GO, CHM7, IPB, CKB, TRIG, LDO #### [facility] (DEFAULT) [address] [place] [address] TRIGLYCERIDEon 05-07-2024 Triglyceride [Mass/Vol] 152 mg/dL High NINF - 150 mg/dL [facility] Triglyceride [Mass/Vol] 152 mg/dL High <150 [facility] Comment on above: Order Comment: While on Propofol. Result Comment: [<15 0 mg/dL: Desirable] [150-199 mg/dL: Borderline] [200-499 mg/dL: High] [>500 mg/dL: Very High] Performed By: #### M GO, CHM7, IPB, CKB, TRIG, LDO #### [facility] (DEFAULT) [address] [place] [address] XR ABDOMEN 1 VIEW PORTABLEon 05-07-2024 XR [...] ileus without residual dilated small bowel. Normal [facility] XR Abdomen Single viewon RADIOLOGY RADIOLOGY [facility] Radiology Study observation (narrative) [facility] XR Abdomen Single viewOrdere d By: Trever Prather on 05-07-2024 [facility] Center XR CHEST 1 VIEW PORTABLEon [...] pneumomediastinum or subcutaneous gas on radiograph. Normal [facility] ANTI XA HEPARIN (UNFRACTIONA EVANS)Ordered By: Alice Garvin on 05-06-2024 Heparin anti Xa Qn (Nonbiological fluid) Low [facility] Interpretation and review of laboratory results Abnormal [facility] ANTI XA HEPARIN (UNFRACTIONA EVANS)on 05-06-2024 Anti Xa Heparin (Unfractionated) <0.10 Low 0.30-0.70 [facility] Comment on above: Performed By: #### T YPEC #### [facility] (DEFAULT) [address] [place] [address] BASIC METABOLIC PANELon 04-08 Anion gap [Moles/Vol] 14 mmol/L 7 - 17 mmol/L [facility] Calcium [Mass/Vol] 7.4 mg/dL Low 8.6 - 10. 5 mg/dL [facility] Chloride [Moles/Vol] 104 mmol/L 98 - 10 8 mmol/L [facility] CO2 [Moles/Vol] 24 mmol/L 21 - 31 mmol/L [facility] Creatinine [Mass/Vol] 2.5 mg/dL High 0.50 - 1.20 mg/dL [facility] eGFR, CKD-EPI, Female 19 Low - PINF [facility] Glucose [Mass/Vol] 94 mg/dL 70 - 99 mg/dL [facility] Interpretation and review of laboratory results Abnormal [facility] Osmolality Calc [Osmolality] 294 [facility] Potassium [Moles/Vol] 4.1 mmol/L 3.5 - 5.0 mmol/L [facility] Sodium [Moles/Vol] 138 mmol/L 135 - 145 mmol/L [facility] Urea nitrogen [Mass/Vol] 28 mg/dL High 7 - 25 mg/dL [facility] Urea nitrogen/Creatinine [Mass ratio] 11 mg/mg [facility] Anion gap [Moles/Vol] 14 mmol/L Normal 7-17 [facility] Comment on above: Performed By: #### M GO, CHM7, IPB, CKB, TRIG, LDO #### [facility] (DEFAULT) [address] [place] [address] 8[address]95 Calcium [Mass/Vol] 7.4 mg/dL Low 8.6-10.5 [facility] Comment on above: Performed By: #### M GO, CHM7, IPB, CKB, TRIG, LDO #### [facility] (DEFAULT) [address] [place] [address] 66928 Chloride [Moles/Vol] 104 mmol/L Normal 98-108 [facility] Comment on above: Performed By: #### M GO, CHM7, IPB, CKB, TRIG, LDO #### [facility] (DEFAULT) [address] [place] [address] 30488 CO2 [Moles/Vol] 24 mmol/L Normal 21-31 [facility] Comment on above: Performed By: #### M GO, CHM7, IPB, CKB, TRIG, LDO #### [facility] (DEFAULT) [address] [place] [address] 08126 Creatinine [Mass/Vol] 2.50 mg/dL High 0.50-1.20 [facility] Comment on above: Performed By: #### M GO, CHM7, IPB, CKB, TRIG, LDO #### [facility] (DEFAULT) [address] [place] [address] 14499 GFR/1.73 sq M.predicted among non-blacks MDRD (S/P/Bld) [Vol rate/Area] 19 mL/min/{1.73_m2} Low >=60 [facility] Comment on above: Result Comment: Repo rted eGFR is based on the CKD-EPI 2020 equation using creatinine, age, and sex. Performed By: #### M GO, CHM7, IPB, CKB, TRIG, LDO #### [facility] (DEFAULT) [address] [place] [address] 90592 Glucose [Mass/Vol] 94 mg/dL Normal 70-99 [facility] Comment on above: Performed By: #### M GO, CHM7, IPB, CKB, TRIG, LDO #### [facility] (DEFAULT) [address] [place] [address] 91707 Osmolality [Osmolality] 294 mosm/kg Normal 278-305 [facility] Comment on above: Performed By: #### M GO, CHM7, IPB, CKB, TRIG, LDO #### [facility] (DEFAULT) [address] [place] [address] 21531 Potassium [Moles/Vol] 4.1 mmol/L Normal 3.5-5.0 [facility] Comment on above: Performed By: #### M GO, CHM7, IPB, CKB, TRIG, LDO #### [facility] (DEFAULT) [address] [place] [address] 56035 Sodium [Moles/Vol] 138 mmol/L Normal 135-145 [facility] Comment on above: Performed By: #### M GO, CHM7, IPB, CKB, TRIG, LDO #### [facility] (DEFAULT) [address] [place] [address] 14281 Urea nitrogen [Mass/Vol] 28 mg/dL High 7-25 [facility] Comment on above: Performed By: #### M GO, CHM7, IPB, CKB, TRIG, LDO #### [facility] (DEFAULT) [address] [place] [address] 37782 Urea nitrogen/Creatinine [Mass ratio] 11 mg/mg Normal [facility] Comment on above: Performed By: #### M GO, CHM7, IPB, CKB, TRIG, LDO #### [facility] (DEFAULT) [address] [place] [address] 09437 CBC W/Diff, Automatedon 04-08 PATH REV Reviewed Normal [facility] Comment on above: Result Comment: THE PERIPHERAL SMEAR SHOWS A NORMOCHROMIC NORMOCYTIC ANEMIA.PLATELETS ARE SLIGHTLY LOW IN NUMBER AND NORMAL IN FORM.THERE IS A LEUKOCYTOSIS WITH INCREASED NEUOTROPHILS. THIS ISOFTEN DUE TO A REACTIVE PROCESS.Mehdi Miller M.D. 05/06/24 AMENDED REPORT 05/06/24 1000 PATH REV previously reported as: Reviewed Performed By: #### L 501.5200, L100.0100, L501.2300, L500.2500 ####[facility] [id number] [place], [address] CBC,PLATELETSOrdered By: Vinnie Acevedo on 05-06-2024 RBC (Bld) [#/Vol] 2.21 10*6/uL Low [facility] CBC,PLATELETSon 05-06-2024 Hematocrit (Bld) [Volume fraction] 22.9 % Low 34.9-44.3 [facility] Comment on above: Performed By: #### M GO, CHM7, IPB, CKB, TRIG, LDO #### [facility] (DEFAULT) [address] [place] [address] 60307 Hemoglobin (Bld) [Mass/Vol] 7.1 g/dL Low 11.4-15.2 [facility] Comment on above: Performed By: #### M GO, CHM7, IPB, CKB, TRIG, LDO #### [facility] (DEFAULT) [address] [place] [address] 51899 MCV (RBC) [Entitic vol] 103.6 fL High 79.6-97.7 [facility] Comment on above: Result Comment: Resu lts inconsistent with previous results Performed By: #### M GO, CHM7, IPB, CKB, TRIG, LDO #### [facility] (DEFAULT) [address] [place] [address] 06258 Mean Cell Hgb 32.1 pg Normal 25.9-33.9 [facility] Comment on above: Performed By: #### M GO, CHM7, IPB, CKB, TRIG, LDO #### [facility] (DEFAULT) [address] [place] [address] 17474 Mean Cell Hgb Conc 31.0 g/dL Low 31.4-35.9 [facility] Comment on above: Performed By: #### M GO, CHM7, IPB, CKB, TRIG, LDO #### [facility] (DEFAULT) [address] [place] [address] 97462 Mean Platelet Volume Normal [facility] Comment on above: Result Comment: Not measured Performed By: #### M GO, CHM7, IPB, CKB, TRIG, LDO #### [facility] (DEFAULT) [address] [place] [address] 58494 Platelets (Bld) [#/Vol] 90 10*3/uL Low 150-393 [facility] Comment on above: Result Comment: Plat elet clumps noted on smear. Reported instrument value is acceptable This is an appended report. These results have been appended to a previously preliminary verified report. Performed By: #### M GO, CHM7, IPB, CKB, TRIG, LDO #### [facility] (DEFAULT) [address] [place] [address] 96748 RBC (Bld) [#/Vol] 2.21 10*6/uL Low 3.91-5.04 [facility] Comment on above: Performed By: #### M GO, CHM7, IPB, CKB, TRIG, LDO #### [facility] (DEFAULT) [address] [place] [address] 43843 RBC Distribution 16.9 % High 10.8-14.[address] [facility] Comment on above: Performed By: #### M GO, CHM7, IPB, CKB, TRIG, LDO #### [facility] (DEFAULT) [address] [place] [address] 35732 WBC (Bld) [#/Vol] 19.33 10*3/uL High 3.99-11.19 [facility] Comment on above: Performed By: #### M GO, CHM7, IPB, CKB, TRIG, LDO #### [facility] (DEFAULT) [address] [place] [address] 23537 CHEM 7 (LYTES,BUN,CREA,GLUC) on 05-06-2024 Anion gap [Moles/Vol] 13 mmol/L Normal 7-17 [facility] Comment on above: Performed By: #### M GO, CHM7, IPB, CKB, TRIG, LDO #### [facility] (DEFAULT) [address] [place] [address] 82253 Chloride [Moles/Vol] 107 mmol/L Normal 98-108 [facility] Comment on above: Performed By: #### M GO, CHM7, IPB, CKB, TRIG, LDO #### [facility] (DEFAULT) [address] [place] [address] 26756 CO2 [Moles/Vol] 21 mmol/L Normal 21-31 [facility] Comment on above: Performed By: #### M GO, CHM7, IPB, CKB, TRIG, LDO #### [facility] (DEFAULT) [address] [place] [address] 29425 Creatinine [Mass/Vol] 3.60 mg/dL High 0.50-1.20 [facility] Comment on above: Performed By: #### M GO, CHM7, IPB, CKB, TRIG, LDO #### [facility] (DEFAULT) [address] [place] [address] 17180 GFR/1.73 sq M.predicted among non-blacks MDRD (S/P/Bld) [Vol rate/Area] 12 mL/min/{1.73_m2} Low >=60 [facility] Comment on above: Result Comment: Repo rted eGFR is based on the CKD-EPI 2020 equation using creatinine, age, and sex. Performed By: #### M GO, CHM7, IPB, CKB, TRIG, LDO #### [facility] (DEFAULT) [address] [place] [address] 04738 Glucose [Mass/Vol] 90 mg/dL Normal 70-99 [facility] Comment on above: Performed By: #### M GO, CHM7, IPB, CKB, TRIG, LDO #### [facility] (DEFAULT) [address] [place] [address] 08104 Osmolality [Osmolality] 301 mosm/kg Normal 278-305 [facility] Comment on above: Performed By: #### M GO, CHM7, IPB, CKB, TRIG, LDO #### [facility] (DEFAULT) [address] [place] [address] 61290 Potassium [Moles/Vol] 4.1 mmol/L Normal 3.5-5.0 [facility] Comment on above: Performed By: #### M GO, CHM7, IPB, CKB, TRIG, LDO #### [facility] (DEFAULT) [address] [place] [address] 80780 Sodium [Moles/Vol] 137 mmol/L Normal 135-145 [facility] Comment on above: Performed By: #### M GO, CHM7, IPB, CKB, TRIG, LDO #### [facility] (DEFAULT) [address] [place] [address] 66884 Urea nitrogen [Mass/Vol] 52 mg/dL High 7-25 [facility] Comment on above: Performed By: #### M GO, CHM7, IPB, CKB, TRIG, LDO #### [facility] (DEFAULT) [address] [place] [address] 72267 Urea nitrogen/Creatinine [Mass ratio] 14 mg/mg Normal [facility] Comment on above: Performed By: #### M GO, CHM7, IPB, CKB, TRIG, LDO #### [facility] (DEFAULT) [address] [place] [address] CRYPTOCOCCUS, ANTIGEN CSFOrd ered By: Raheem Castorena on 05-06-2024 Cryptococcus sp Ag Ql (CSF) Negative Negative [facility] Interpretation and review of laboratory results Normal [facility] CSF DIFFERENTIALOrdered By: Ramon Kennedy on 05-06-2024 Basophils/100 WBC Manual cnt (CSF) 0 % [facility] Work Phone: Cells Counted Total (CSF) [#] 100 [facility] Work Phone: Eosinophils/100 WBC Manual cnt (CSF) 0 % [facility] Work Phone: Interpretation and review of laboratory results Abnormal [facility] Work Phone: Lymphocytes/100 WBC Manual cnt (CSF) 90 % High 40 - 80 % [facility] Work Phone: Monocytes+Macrophages/ 100 WBC (CSF) 6 % Low 15 - 45 % [facility] Work Phone: Neutrophils/100 WBC Manual cnt (CSF) 4 % NINF - 6 % [facility] Work Phone: Pathologist review Janes (Unsp spec) [Interp] Ramon Kennedy MD [facility] Work Phone: Pathology report comments [Interpretation] Narrative w3kdfQUhSYJclHMhRZtaOeyusmC mHLAhuTYqS9HclntbJQmfJD2qFZ 7lvQvezGFxkMZlRCPeTnWan7pye 675bYUth8roKIDDADjrRJPNUWo6 jVwwZ31lf8O1KbrbA27nwRWoPRY 9VOBxHMElcVCnITBiBOY9RHQekX MjN4ktSBFlXC3bnbtpQWuhWQarJ ZHhmZQ3VVHfaPJmO8ShTQXmKVwd ZLCryum4NwMeKz6wvALmlIolFYy wYXJkXHBsYWluXGZzMjBccHJvdG XumWxhRtutjWF5CHgfUhpskT0ui DWCANWQFuzUKbvtqkWxGN8XSAIS EpWJWE29JmO3VpW2LPezwEhfNxt ztbDwuAZeXkIgrS0HspJ5bhYhsC d7n7GsjHVxqnrqkwrjhXAgg7Trb b0sSTIga07sYJhbAELpNFNincLk IEFjdXRlIGFuZCBjaHJvbmljIGl lKjkkoN4msD1buTLcAVzufeWhno MtDU78BtYzS66dpbDrJUOkc67ey 6m1iXMpvpChERP5TDxwWMRkBAIe lTp0mKDzLQVmF63tfKSpVMNtHga dZkvjaJR1OVdxSmaizS7ggVLHOW VLPciGGqechnBzOH6ZAVEUNJ2Mm NIgKvCmyDG8JV55OWNgJGByhILs DUviJ628AYYjCFreTDVoEaZxvMX xGTTtdsKxuKXeOIEvT13XEsACZM WQJ23UEBQYQCZQP7MYX7vMQXOjM oKtoOY5NVLjXojzSjpvHAryE79F DuDPLUWBE13EUOESPORAA4RXFSR YRFmXB5KPMZ0BFLWSZKTIMB1WSC wGBbNSYKrVI3LJIJ1CUHHTIJWJZ O6YWsBiUEwMM9RVG9dCIFHxFUKG EDYQAYCbDfDLJR1bUOb0TJxuWHD uCDstXby0zLLxH09zNNM3AmR3Mt EysZYSOZAQJHbFUERYBj0YTUFST GPZDP0SPyEtE7IEEH8IPm6QIPTY LENIEO1XQOaGZxLoP6OPVB1NHp9 YYNFVGGNMJV5GDjLkKEHVQ9QFZd HJV3hbEIELXJNIACCzPsXJPG9pR TBFZG2BTDQNHLSSB17RHEYNMULB H8TYKB6= [facility] Work Phone: Tube number Nom (CSF) [ID] CSF TUBE 4 [facility] Work Phone: [facility] Work Phone: Culture, Blood (WB)on 2024 CUB LEFT UPPER ARM Blood cultures x2, from two different sites No growth in 5 days. Normal [facility] Comment on above: Performed By: #### M 200.1000, L500.4050, L503.6005, L100.0100, L300.3900 ####[facility] [id number] [place], [address] FIBRINOGEN, CLOTTABLEon 04-08 Fibrinogen-Clottable 502 mg/dL High 220-410 [facility] Comment on above: Order Comment: "Fibr inogen levels may be altered by the normal physiologic changes of and should be interpreted considering reference ranges specific to gestational age."First Trimester: 244-510 mg/dLSecond Trimester: 291-538 mg/dLThird Trimester/: 373-619 mg/dLReference: Santiago M, Sarah LG, Anne FG. and laboratory studies: a reference table for clinicians. Obstet Gynecol 2009; 114:1326. Result Comment: Func tional Fibrinogen (activity) levels can be affected by direct thrombin inhibitors such as heparins (>2.0 IU/ml) and dabigatran. Abnormal results should be interpreted with caution. Performed By: #### R ES #### [facility] (DEFAULT) [address] [place] [address] IONIZED CALCIUM, WHOLE BLOOD on 05-06-2024 ICA 4.02 mg/dL Low 4.60-5.30 [facility] Comment on above: Performed By: #### M OMER, CHM7, IPB, CKB, TRIG, LDO #### [facility] (DEFAULT) [address] [place] [address] 57205 MAGNESIUMon 05-06-2024 Magnesium [Mass/Vol] 1.9 mg/dL 1.6 - 2 .6 mg/dL [facility] Magnesium [Mass/Vol] 1.9 mg/dL Normal 1.6-2.6 [facility] Comment on above: Performed By: #### M GO, CHM7, IPB, CKB, TRIG, LDO #### [facility] (DEFAULT) [address] [place] [address] 66813 Magnesium [Mass/Vol] 2.2 mg/dL Normal 1.6-2.6 [facility] Comment on above: Performed By: #### M GO, CHM7, IPB, CKB, TRIG, LDO #### [facility] (DEFAULT) [address] [place] [address] 14273 MR Brain WO and W contrast I Von 05-06-2024 Radiology Study observation (narrative) [facility] MRI PLAIN FILM FOR NEURO [...] MRI. Intrauterine contraceptive device in place. Normal [facility] RADIOLOGY RADIOLOGY [facility] Radiology Study observation (narrative) [facility] MRI PLAIN FILM FOR NEURO EXA MOrdered By: Earlene Wylie on 05-06-2024 [facility] Work Phone: No Panel Informationon 05-06 Interpretation and review of laboratory results Normal [facility] PHOSPHATE, INORGANICon 05-06 Phosphate [Mass/Vol] 4 mg/dL 2.2 - 4 .6 mg/dL [facility] Phosphorous 4.0 mg/dL Normal 2.2-4.6 [facility] Comment on above: Performed By: #### M GO, CHM7, IPB, CKB, TRIG, LDO #### [facility] (DEFAULT) [address] [place] [address] 41291 Phosphorous 5.2 mg/dL High 2.2-4.6 [facility] Comment on above: Performed By: #### M GO, CHM7, IPB, CKB, TRIG, LDO #### [facility] (DEFAULT) [address] [place] [address] 23185 ARTERIAL BLOOD GASon 05-05- 025 Base Excess -4.0 mmol/L Low -3.0-3.0 [facility] Comment on above: Order Comment: For O pti-Oxygen Performed By: #### M GO, CHM7, IPB, CKB, TRIG, LDO #### [facility] (DEFAULT) [address] [place] [address] 63687 FIO2 30 % Normal [facility] Comment on above: Order Comment: For O pti-Oxygen Result Comment: vent Performed By: #### M GO, CHM7, IPB, CKB, TRIG, LDO #### [facility] (DEFAULT) [address] [place] [address] 74821 HCO3 (Bld) [Moles/Vol] 20 mmol/L Low 22-28 [facility] Comment on above: Order Comment: For O pti-Oxygen Performed By: #### M GO, CHM7, IPB, CKB, TRIG, LDO #### [facility] (DEFAULT) [address] [place] [address] 93876 Oxygen saturation in Blood 98 % Normal 94-98 [facility] Comment on above: Order Comment: For O pti-Oxygen Performed By: #### M GO, CHM7, IPB, CKB, TRIG, LDO #### [facility] (DEFAULT) [address] [place] [address] 46984 pCO2 27 mm Hg Low 32-48 [facility] Comment on above: Order Comment: For O pti-Oxygen Performed By: #### M GO, CHM7, IPB, CKB, TRIG, LDO #### [facility] (DEFAULT) [address] [place] [address] 83235 PF Ratio 397 Normal [facility] Comment on above: Order Comment: For O pti-Oxygen Performed By: #### M GO, CHM7, IPB, CKB, TRIG, LDO #### [facility] (DEFAULT) [address] [place] [address] 42634 pH, Arterial 7.47 High 7.35-7.45 [facility] Comment on above: Order Comment: For O pti-Oxygen Performed By: #### M GO, CHM7, IPB, CKB, TRIG, LDO #### [facility] (DEFAULT) [address] [place] [address] 42338 pO2 119 mm Hg High 83-108 [facility] Comment on above: Order Comment: For O pti-Oxygen Performed By: #### M GO, CHM7, IPB, CKB, TRIG, LDO #### [facility] (DEFAULT) [address] [place] [address] 00101 Specimen type Nom (Spec) Arterial Normal [facility] Comment on above: Order Comment: For O pti-Oxygen Performed By: #### M GO, CHM7, IPB, CKB, TRIG, LDO #### [facility] (DEFAULT) [address] [place] [address] 25768 BLOOD CULTUREon 05-05-2024 Bacteria identified Cx Nom (Unsp spec) NO GROWTH DAY 5 OF 5 Normal [facility] Comment on above: Order Comment: 2 Bot tles (1 Set - consists of 1 Aerobic bottle and 1 Anaerobic bottle) -1st Peripheral DrawFor vacutainer method draw: Fill aerobic bottle first, then anaerobic Performed By: #### M GO, CHM7, IPB, CKB, TRIG, LDO #### [facility] (DEFAULT) [address] [place] [address] 53811 Bacteria identified Cx Nom (Unsp spec) NO GROWTH DAY 5 OF 5 Normal [facility] Comment on above: Order Comment: 2 Bot tles (1 Set - consists of 1 Aerobic bottle and 1 Anaerobic bottle) -1st Peripheral DrawFor vacutainer method draw: Fill aerobic bottle first, then anaerobic Performed By: #### M GO, CHM7, IPB, CKB, TRIG, LDO #### [facility] (DEFAULT) [address] [place] [address] 67216 BODY FLUID CULTURE AND DIREC T SMEARon 05-05-2024 Bacteria identified Cx Nom (Unsp spec) NO GROWTH DAY 2 OF 2 Normal [facility] Comment on above: Performed By: #### M GO, CHM7, IPB, CKB, TRIG, LDO #### [facility] (DEFAULT) [address] [place] [address] 29311 Microscopic observation Gram stain Nom (Unsp spec) Normal [facility] Comment on above: Result Comment: Cyto centrifuge preparation Neutrophils, Light Mononuclear cells present Red Blood Cells Present No organisms seen Final report, verified by Microbiology. Performed By: #### M GO, CHM7, IPB, CKB, TRIG, LDO #### [facility] (DEFAULT) [address] [place] [address] 25595 Basic Metabolic Profile (BMP )on 05-05-2024 BUN Normal 7-18 [facility] Comment on above: Result Comment: Canc elled via OM: Order cancelled - Patient discharged Performed By: #### L 500.2500, L100.0100 ####[facility] [address] [place], [address] BUN/CRE Normal 10-20 [facility] Comment on above: Result Comment: Canc elled via OM: Order cancelled - Patient discharged Performed By: #### L 500.2500, L100.0100 ####[facility] [address] [place], [address] CA,Total Normal 8.5-10.1 [facility] Comment on above: Result Comment: Canc elled via OM: Order cancelled - Patient discharged Performed By: #### L 500.2500, L100.0100 ####[facility] [address] [place], [address] CL Normal 98-107 [facility] Comment on above: Result Comment: Canc elled via OM: Order cancelled - Patient discharged Performed By: #### L 500.2500, L100.0100 ####[facility] [address] [place], [address] CO2 Normal 21.0-32.0 [facility] Comment on above: Result Comment: Canc elled via OM: Order cancelled - Patient discharged Performed By: #### L 500.2500, L100.0100 ####[facility] [address] [place], [address] CREAT,SERUM Normal 0.55-1.02 [facility] Comment on above: Result Comment: Canc elled via OM: Order cancelled - Patient discharged Performed By: #### L 500.2500, L100.0100 ####[facility] [address] [place], [address] EST GFR Normal >60 [facility] Comment on above: Result Comment: Canc elled via OM: Order cancelled - Patient discharged Performed By: #### L 500.2500, L100.0100 ####[facility] [address] [place], [address] EST GFR - AA Normal >60 [facility] Comment on above: Result Comment: Canc elled via OM: Order cancelled - Patient discharged Performed By: #### L 500.2500, L100.0100 ####[facility] [address] [place], [address] GAP Normal 5-15 [facility] Comment on above: Result Comment: Canc elled via OM: Order cancelled - Patient discharged Performed By: #### L 500.2500, L100.0100 ####[facility] [address] [place], [address] GLU Normal 74-106 [facility] Comment on above: Result Comment: Canc elled via OM: Order cancelled - Patient discharged Performed By: #### L 500.2500, L100.0100 ####[facility] [address] [place], [address] Potassium Normal 3.5-5.1 [facility] Comment on above: Result Comment: Canc elled via OM: Order cancelled - Patient discharged Performed By: #### L 500.2500, L100.0100 ####[facility] [address] [place], [address] Basic Metabolic Profile (BMP) Normal 136-145 [facility] Comment on above: Result Comment: Canc elled via OM: Order cancelled - Patient discharged Performed By: #### L 500.2500, L100.0100 ####[facility] [address] [place], [address] CBC W/Diff, Automatedon 01-3 0-2024 Absolute Neut Normal 2.0-7.7 [facility] Comment on above: Result Comment: Canc elled via OM: Order cancelled - Patient discharged Performed By: #### L 500.2500, L100.0100 ####[facility] [address] [place], [address] HCT Normal 37-47 [facility] Comment on above: Result Comment: Canc elled via OM: Order cancelled - Patient discharged Performed By: #### L 500.2500, L100.0100 ####[facility] [address] [place], [address] HGB Normal 12.0-15.0 [facility] Comment on above: Result Comment: Canc elled via OM: Order cancelled - Patient discharged Performed By: #### L 500.2500, L100.0100 ####[facility] [address] [place], [address] MCH Normal 27.0-32.0 [facility] Comment on above: Result Comment: Canc elled via OM: Order cancelled - Patient discharged Performed By: #### L 500.2500, L100.0100 ####[facility] [address] [place], [address] MCHC Normal 32-36 [facility] Comment on above: Result Comment: Canc elled via OM: Order cancelled - Patient discharged Performed By: #### L 500.2500, L100.0100 ####[facility] [address] [place], [address] MCV Normal 81-99 [facility] Comment on above: Result Comment: Canc elled via OM: Order cancelled - Patient discharged Performed By: #### L 500.2500, L100.0100 ####[facility] [address] [place], [address] NEUT% Normal 47-70 [facility] Comment on above: Result Comment: Canc elled via OM: Order cancelled - Patient discharged Performed By: #### L 500.2500, L100.0100 ####[facility] [address] [place], [address] PLT Normal 150-450 [facility] Comment on above: Result Comment: Canc elled via OM: Order cancelled - Patient discharged Performed By: #### L 500.2500, L100.0100 ####[facility] [address] [place], [address] RBC Normal 4.2-5.4 [facility] Comment on above: Result Comment: Canc elled via OM: Order cancelled - Patient discharged Performed By: #### L 500.2500, L100.0100 ####[facility] [address] [place], [address] RDW CV Normal 11.6-14.6 [facility] Comment on above: Result Comment: Canc elled via OM: Order cancelled - Patient discharged Performed By: #### L 500.2500, L100.0100 ####[facility] [address] [place], [address] RDW SD Normal 35.1-43.9 [facility] Comment on above: Result Comment: Canc elled via OM: Order cancelled - Patient discharged Performed By: #### L 500.2500, L100.0100 ####[facility] [address] [place], [address] WBC Normal 4.4-11.0 [facility] Comment on above: Result Comment: Canc elled via OM: Order cancelled - Patient discharged Performed By: #### L 500.2500, L100.0100 ####[facility] [address] [place], [address] CBC,PLATELETSon 05-05-2024 Hematocrit (Bld) [Volume fraction] 24.3 % Low 34.9-44.3 [facility] Comment on above: Performed By: #### ROXY ROA, MARGARETHB, CKB, TRIG, LDO #### [facility] (DEFAULT) [address] [place] [address] Hemoglobin (Bld) [Mass/Vol] 7.9 g/dL Low 11.4-15.2 [facility] Comment on above: Performed By: #### M GO, CHM7, IPB, CKB, TRIG, LDO #### [facility] (DEFAULT) [address] [place] [address] MCV (RBC) [Entitic vol] 98.4 fL High 79.6-97.7 [facility] Comment on above: Performed By: #### M GO, CHM7, IPB, CKB, TRIG, LDO #### [facility] (DEFAULT) [address] [place] [address] 67550 Mean Cell Hgb 32.0 pg Normal 25.9-33.9 [facility] Comment on above: Performed By: #### M GO, CHM7, IPB, CKB, TRIG, LDO #### [facility] (DEFAULT) [address] [place] [address] 30979 Mean Cell Hgb Conc 32.5 g/dL Normal 31.4-35.9 [facility] Comment on above: Performed By: #### M GO, CHM7, IPB, CKB, TRIG, LDO #### [facility] (DEFAULT) [address] [place] [address] Platelet mean volume (Bld) [Entitic vol] 12.1 fL Normal 8.5-12.2 [facility] Comment on above: Performed By: #### M GO, CHM7, IPB, CKB, TRIG, LDO #### [facility] (DEFAULT) [address] [place] [address]13 Platelets (Bld) [#/Vol] 83 10*3/uL Low 150-393 [facility] Comment on above: Performed By: #### M GO, CHM7, IPB, CKB, TRIG, LDO #### [facility] (DEFAULT) [address] [place] [address] 39623 RBC (Bld) [#/Vol] 2.47 10*6/uL Low 3.91-5.04 [facility] Comment on above: Performed By: #### M GO, CHM7, IPB, CKB, TRIG, LDO #### [facility] (DEFAULT) [address] [place] [address] 79808 RBC Distribution 16.6 % High 10.8-14.[address] [facility] Comment on above: Performed By: #### M GO, CHM7, IPB, CKB, TRIG, LDO #### [facility] (DEFAULT) [address] [place] [address] 10045 WBC (Bld) [#/Vol] 16.19 10*3/uL High 3.99-11.19 [facility] Comment on above: Performed By: #### M GO, CHM7, IPB, CKB, TRIG, LDO #### [facility] (DEFAULT) [address] [place] [address] CHEM 7 (LYTES,BUN,CREA,GLUC) on 05-05-2024 Anion gap [Moles/Vol] 13 mmol/L Normal 7-17 [facility] Comment on above: Performed By: #### M GO, CHM7, IPB, CKB, TRIG, LDO #### [facility] (DEFAULT) [address] [place] [address] 25113 Chloride [Moles/Vol] 105 mmol/L Normal 98-108 [facility] Comment on above: Performed By: #### M GO, CHM7, IPB, CKB, TRIG, LDO #### [facility] (DEFAULT) [address] [place] [address] 17052 CO2 [Moles/Vol] 22 mmol/L Normal 21-31 [facility] Comment on above: Performed By: #### M GO, CHM7, IPB, CKB, TRIG, LDO #### [facility] (DEFAULT) [address] [place] [address] 48105 Creatinine [Mass/Vol] 3.42 mg/dL High 0.50-1.20 [facility] Comment on above: Performed By: #### M GO, CHM7, IPB, CKB, TRIG, LDO #### [facility] (DEFAULT) [address] [place] [address] 31010 GFR/1.73 sq M.predicted among non-blacks MDRD (S/P/Bld) [Vol rate/Area] 13 mL/min/{1.73_m2} Low >=60 [facility] Comment on above: Result Comment: Repo rted eGFR is based on the CKD-EPI 2020 equation using creatinine, age, and sex. Performed By: #### M GO, CHM7, IPB, CKB, TRIG, LDO #### [facility] (DEFAULT) [address] [place] [address] 20217 Glucose [Mass/Vol] 88 mg/dL Normal 70-99 [facility] Comment on above: Performed By: #### M GO, CHM7, IPB, CKB, TRIG, LDO #### [facility] (DEFAULT) [address] [place] [address] 37771 Osmolality [Osmolality] 299 mosm/kg Normal 278-305 [facility] Comment on above: Performed By: #### M GO, CHM7, IPB, CKB, TRIG, LDO #### [facility] (DEFAULT) [address] [place] [address] 28789 Potassium [Moles/Vol] 4.3 mmol/L Normal 3.5-5.0 [facility] Comment on above: Performed By: #### M GO, CHM7, IPB, CKB, TRIG, LDO #### [facility] (DEFAULT) [address] [place] [address] 04358 Sodium [Moles/Vol] 136 mmol/L Normal 135-145 [facility] Comment on above: Performed By: #### M GO, CHM7, IPB, CKB, TRIG, LDO #### [facility] (DEFAULT) [address] [place] [address] 48653 Urea nitrogen [Mass/Vol] 51 mg/dL High 7-25 [facility] Comment on above: Performed By: #### M GO, CHM7, IPB, CKB, TRIG, LDO #### [facility] (DEFAULT) [address] [place] [address] 45752 Urea nitrogen/Creatinine [Mass ratio] 15 mg/mg Normal [facility] Comment on above: Performed By: #### M GO, CHM7, IPB, CKB, TRIG, LDO #### [facility] (DEFAULT) [address] [place] [address] Anion gap [Moles/Vol] 13 mmol/L Normal 7-17 [facility] Comment on above: Performed By: #### M GO, CHM7, IPB, CKB, TRIG, LDO #### [facility] (DEFAULT) [address] [place] [address] 30089 Chloride [Moles/Vol] 105 mmol/L Normal 98-108 [facility] Comment on above: Performed By: #### M GO, CHM7, IPB, CKB, TRIG, LDO #### [facility] (DEFAULT) [address] [place] [address] 61734 CO2 [Moles/Vol] 22 mmol/L Normal 21-31 [facility] Comment on above: Performed By: #### M GO, CHM7, IPB, CKB, TRIG, LDO #### [facility] (DEFAULT) [address] [place] [address] 46157 Creatinine [Mass/Vol] 3.49 mg/dL High 0.50-1.20 [facility] Comment on above: Performed By: #### M GO, CHM7, IPB, CKB, TRIG, LDO #### [facility] (DEFAULT) [address] [place] [address] 12896 GFR/1.73 sq M.predicted among non-blacks MDRD (S/P/Bld) [Vol rate/Area] 13 mL/min/{1.73_m2} Low >=60 [facility] Comment on above: Result Comment: Repo rted eGFR is based on the CKD-EPI 2020 equation using creatinine, age, and sex. Performed By: #### M GO, CHM7, IPB, CKB, TRIG, LDO #### [facility] (DEFAULT) [address] [place] [address] 00607 Glucose [Mass/Vol] 95 mg/dL Normal 70-99 [facility] Comment on above: Performed By: #### M GO, CHM7, IPB, CKB, TRIG, LDO #### [facility] (DEFAULT) [address] [place] [address] 03873 Osmolality [Osmolality] 299 mosm/kg Normal 278-305 [facility] Comment on above: Performed By: #### M GO, CHM7, IPB, CKB, TRIG, LDO #### [facility] (DEFAULT) [address] [place] [address] 30243 Potassium [Moles/Vol] 4.3 mmol/L Normal 3.5-5.0 [facility] Comment on above: Performed By: #### M GO, CHM7, IPB, CKB, TRIG, LDO #### [facility] (DEFAULT) [address] [place] [address] 20770 Sodium [Moles/Vol] 136 mmol/L Normal 135-145 [facility] Comment on above: Performed By: #### M GO, CHM7, IPB, CKB, TRIG, LDO #### [facility] (DEFAULT) [address] [place] [address] 36731 Urea nitrogen [Mass/Vol] 50 mg/dL High 7-25 [facility] Comment on above: Performed By: #### M GO, CHM7, IPB, CKB, TRIG, LDO #### [facility] (DEFAULT) [address] [place] [address] 68264 Urea nitrogen/Creatinine [Mass ratio] 14 mg/mg Normal [facility] Comment on above: Performed By: #### M GO, CHM7, IPB, CKB, TRIG, LDO #### [facility] (DEFAULT) [address] [place] [address] 30793 CKon 05-05-2024 CK [Catalytic activity/Vol] 224 U/L High 30-184 [facility] Comment on above: Order Comment: While on Propofol. Performed By: #### M GO, CHM7, IPB, CKB, TRIG, LDO #### [facility] (DEFAULT) [address] [place] [address] 15026 CRYPTOCOCCUS, ANTIGEN CSFon 05-05-2024 Cryptococcus Ag, CSF Negative Normal Negative [facility] Comment on above: Performed By: #### F CRAG #### [facility] (DEFAULT) [address] [place] [address] 15871 CSF DIFFERENTIALon 5 Basophils (Csf) 0 % Normal [facility] Comment on above: Result Comment: The reference range has not been established for this parameter for this fluid. Clinical correlation is recommended. Performed By: #### M GO, CHM7, IPB, CKB, TRIG, LDO #### [facility] (DEFAULT) [address] [place] [address] 62855 Cells Counted (CSF) 100 Normal [facility] Comment on above: Performed By: #### M GO, CHM7, IPB, CKB, TRIG, LDO #### [facility] (DEFAULT) [address] [place] [address] 09159 Comment (Csf) Normal [facility] Comment on above: Result Comment: No u nequivocal organisms seen. Blood is present. Acute and chronic inflammatory cells present. Correlation with gram stain and culture recommended. Performed By: #### M GO, CHM7, IPB, CKB, TRIG, LDO #### [facility] (DEFAULT) [address] [place] [address] 08464 Differential Reviewed By Ramon Kennedy MD [facility] Comment on above: Performed By: #### M GO, CHM7, IPB, CKB, TRIG, LDO #### [facility] (DEFAULT) [address] [place] [address] 91357 Eosinophils (Csf) 0 % Normal [facility] Comment on above: Result Comment: The reference range has not been established for this parameter for this fluid. Clinical correlation is recommended. Performed By: #### M GO, CHM7, IPB, CKB, TRIG, LDO #### [facility] (DEFAULT) [address] [place] [address] 08565 Lymphocytes (Csf) 90 % High 40-80 [facility] Comment on above: Performed By: #### M GO, CHM7, IPB, CKB, TRIG, LDO #### [facility] (DEFAULT) [address] [place] [address] 36761 Monocytes/Macrophages, CSF 6 % Low 15-45 [facility] Comment on above: Performed By: #### M GO, CHM7, IPB, CKB, TRIG, LDO #### [facility] (DEFAULT) [address] [place] [address] 89777 Neutrophils (Csf) 4 % Normal <=6 [facility] Comment on above: Performed By: #### M GO, CHM7, IPB, CKB, TRIG, LDO #### [facility] (DEFAULT) [address] [place] [address] 33688 CSF FLUID COUNT ONLYon 05-05 CSF Tube Number CSF TUBE 4 Normal [facility] Comment on above: Performed By: #### M GO, CHM7, IPB, CKB, TRIG, LDO #### [facility] (DEFAULT) [address] [place] [address] 15913 Gross Appearance (Csf) Normal [facility] Comment on above: Result Comment: Zuri greenfield Colorless Performed By: #### M GO, CHM7, IPB, CKB, TRIG, LDO #### [facility] (DEFAULT) [address] [place] [address] 29504 RBC (Bld) [#/Vol] 0.29096 10*6/uL High <3 [facility] Comment on above: Performed By: #### M GO, CHM7, IPB, CKB, TRIG, LDO #### [facility] (DEFAULT) [address] [place] [address] 50264 Supernatant (Csf) Not Indicated Normal [facility] Comment on above: Performed By: #### M GO, CHM7, IPB, CKB, TRIG, LDO #### [facility] (DEFAULT) [address] [place] [address] Total Nucleated Cells (TNC CSF) 7 /uL High <6 [facility] Comment on above: Performed By: #### M GO, CHM7, IPB, CKB, TRIG, LDO #### [facility] (DEFAULT) [address] [place] [address] HEAD WITHOUT CONTRASTon 0 05-05-2024 CT [...] noted. IMPRESSION: No acute cranial abnormality. Normal [facility] DIALYSIS HEP PANEL-CHRONICon 05-05-2024 Hep B Core Ab,Total (IgG+IgM) Negative Normal Negative [facility] Comment on above: Performed By: #### F CRAG #### [facility] (DEFAULT) [address] [place] [address] 77191 Hep B Surface Ab Negative Normal Negative [facility] Comment on above: Performed By: #### F CRAG #### [facility] (DEFAULT) [address] [place] [address] 69182 Hepatitis C Antibody Negative Normal Negative [facility] Comment on above: Performed By: #### F CRAG #### [facility] (DEFAULT) [address] [place] [address] 31572 ENCEPHALOPATHY, AUTOIMMUNE E VALUATION, CSFon 05-05-2024 AGNA-1,CSF Negative Normal Negative [facility] Comment on above: Result Comment: ADDITIONAL INFORMATION This test was developed and its performance characteristics determined by [facility] in a manner consistent with CLIA requirements. This test has not been cleared or approved by the [place]. Food and Drug Administration. Performed By: #### Dede TELLO, CHM7, IPB, CKB, TRIG, LDO #### [facility] (DEFAULT) [address] [address] AMPA-R AB CBA, CSF Negative Normal Negative [facility] Comment on above: Result Comment: ADDITIONAL INFORMATION This test was developed and its performance characteristics determined by [facility] in a manner consistent with CLIA requirements. This test has not been cleared or approved by the [place].S. Food and Drug Administration. Performed By: #### Dede TELLO, CHM7, IPB, CKB, TRIG, LDO #### [facility] (DEFAULT) [address] [place] [address] 95118 AMPHIPHYSIN AB, CSF Negative Normal Negative [facility] Comment on above: Result Comment: ADDITIONAL INFORMATION This test was developed and its performance characteristics determined by [facility] in a manner consistent with CLIA requirements. This test has not been cleared or approved by the U.S. Food and Drug Administration. Performed By: #### M GO, CHM7, IPB, CKB, TRIG, LDO #### [facility] (DEFAULT) [address] [place] [address] MAT-1, CSF Negative Normal Negative [facility] Comment on above: Result Comment: ADDITIONAL INFORMATION This test was developed and its performance characteristics determined by [facility] in a manner consistent with CLIA requirements. This test has not been cleared or approved by the [place].S. Food and Drug Administration. Performed By: #### M GO, CHM7, IPB, CKB, TRIG, LDO #### [facility] (DEFAULT) [address] [place] [address] MAT-2,CSF Negative Normal Negative [facility] Comment on above: Result Comment: ADDITIONAL INFORMATION This test was developed and its performance characteristics determined by [facility] in a manner consistent with CLIA requirements. This test has not been cleared or approved by the U.S. Food and Drug Administration. Performed By: #### M GO, CHM7, IPB, CKB, TRIG, LDO #### [facility] (DEFAULT) [address] [place] [address] MAT-3,CSF Negative Normal Negative [facility] Comment on above: Result Comment: ADDITIONAL INFORMATION This test was developed and its performance characteristics determined by [facility] in a manner consistent with CLIA requirements. This test has not been cleared or approved by the U.S. Food and Drug Administration. Performed By: #### CHEMO ROA7, IPB, CKB, TRIG, LDO #### [facility] (DEFAULT) [address] [place] [address] CASPR2-IgG CBA, CSF Negative Normal Negative [facility] Comment on above: Result Comment: ADDITIONAL INFORMATION This test was developed and its performance characteristics determined by [facility] in a manner consistent with CLIA requirements. This test has not been cleared or approved by the [place].S. Food and Drug Administration. Performed By: #### Dede TELLO CHDede7, IPB, CKB, TRIG, LDO #### [facility] (DEFAULT) [address] [address] CRMP-5-IGG,CSF Negative Normal Negative [facility] Comment on above: Result Comment: ADDITIONAL INFORMATION This test was developed and its performance characteristics determined by [facility] in a manner consistent with CLIA requirements. This test has not been cleared or approved by the [place].S. Food and Drug Administration. Performed By: #### M ROXY TELLO, IPB, CKB, TRIG, LDO #### [facility] (DEFAULT) [address] [place] [address] 68152 DPPX AB CBA,CSF Negative Normal Negative [facility] Comment on above: Result Comment: ADDITIONAL INFORMATION This test was developed and its performance characteristics determined by [facility] in a manner consistent with CLIA requirements. This test has not been cleared or approved by the U.S. Food and Drug Administration. Performed By: #### CHEMO ROA7, IPB, CKB, TRIG, LDO #### [facility] (DEFAULT) [address] [place] [address] 99883 Encephalopathy, Interpretation, CSF SEE COMMENTS Normal [facility] Comment on above: Result Comment: No i nformative autoantibodies were detected in this evaluation. However, a negative result does not exclude autoimmune encephalopathy, idiopathic or paraneoplastic. Sensitivity and specificity of antibody testing are enhanced by testing both serum and CSF. Performed By: #### M GO, CHM7, IPB, CKB, TRIG, LDO #### [facility] (DEFAULT) [address] [place] [address] 02624 ADRIENNE-B-R AB CBA, CSF Negative Normal Negative [facility] Comment on above: Result Comment: ADDITIONAL INFORMATION This test was developed and its performance characteristics determined by [facility] in a manner consistent with CLIA requirements. This test has not been cleared or approved by the U.S. Food and Drug Administration. Performed By: #### M GO, CHM7, IPB, CKB, TRIG, LDO #### [facility] (DEFAULT) [address] [place] [address] 26381 GAD65 AB ASSAY, CSF 0.00 nmol/L Normal <= 0.02 [facility] Comment on above: Result Comment: ADDITIONAL INFORMATION This test was developed and its performance characteristics determined by [facility] in a manner consistent with CLIA requirements. This test has not been cleared or approved by the U.S. Food and Drug Administration. Performed By: #### M GO, CHM7, IPB, CKB, TRIG, LDO #### [facility] (DEFAULT) [address] [place] [address] 74562 GFAP IFA, CSF Negative Normal Negative [facility] Comment on above: Result Comment: ADDITIONAL INFORMATION This test was developed and its performance characteristics determined by [facility] in a manner consistent with CLIA requirements. This test has not been cleared or approved by the U.S. Food and Drug Administration. Performed By: #### M GO, CHM7, IPB, CKB, TRIG, LDO #### [facility] (DEFAULT) [address] [place] [address] IFA Notes None. Normal [facility] Comment on above: Performed By: #### M GO, CHM7, IPB, CKB, TRIG, LDO #### [facility] (DEFAULT) [address] [place] [address] IgLON5 CBA, CSF Negative Normal Negative [facility] Comment on above: Result Comment: ADDITIONAL INFORMATION This test was developed and its performance characteristics determined by [facility] in a manner consistent with CLIA requirements. This test has not been cleared or approved by the U.S. Food and Drug Administration. Performed By: #### M GO, CHM7, IPB, CKB, TRIG, LDO #### [facility] (DEFAULT) [address] [place] [address] LGI1-IgG,CBA,csf Negative Normal Negative [facility] Comment on above: Result Comment: ADDITIONAL INFORMATION This test was developed and its performance characteristics determined by [facility] in a manner consistent with CLIA requirements. This test has not been cleared or approved by the U.S. Food and Drug Administration. Performed By: #### M GO, CHM7, IPB, CKB, TRIG, LDO #### [facility] (DEFAULT) [address] [place] [address] 14448 MGLUR1 AB, IFA, CSF Negative Normal Negative [facility] Comment on above: Result Comment: ADDITIONAL INFORMATION This test was developed and its performance characteristics determined by [facility] in a manner consistent with CLIA requirements. This test has not been cleared or approved by the U.S. Food and Drug Administration. Performed By: #### M GO, CHM7, IPB, CKB, TRIG, LDO #### [facility] [address] [place] [address]481 Neurochondrin IFA, CSF Negative Normal Negative [facility] Comment on above: Result Comment: ADDITIONAL INFORMATION This test was developed and its performance characteristics determined by [facility] in a manner consistent with CLIA requirements. This test has not been cleared or approved by the U.S. Food and Drug Administration. Performed By: #### M GO, CHM7, IPB, CKB, TRIG, LDO #### [facility] (DEFAULT) [address] [place] [address] 19148 NIF IFA, CSF Negative Normal Negative [facility] Comment on above: Result Comment: ADDITIONAL INFORMATION This test was developed and its performance characteristics determined by [facility] in a manner consistent with CLIA requirements. This test has not been cleared or approved by the U.S. Food and Drug Administration. Performed By: #### M GO, CHM7, IPB, CKB, TRIG, LDO #### [facility] (DEFAULT) [address] [place] [address] 8[address] NMDA-R AB CBA, CSF Negative Normal Negative [facility] Comment on above: Result Comment: ADDITIONAL INFORMATION This test was developed and its performance characteristics determined by [facility] in a manner consistent with CLIA requirements. This test has not been cleared or approved by the U.S. Food and Drug Administration. Performed By: #### M GO, CHM7, IPB, CKB, TRIG, LDO #### [facility] (DEFAULT) [address] [place] [address] GIFTED PROGRAM TEACHER-1,CSF Negative Normal Negative [facility] Comment on above: Result Comment: ADDITIONAL INFORMATION This test was developed and its performance characteristics determined by [facility] in a manner consistent with CLIA requirements. This test has not been cleared or approved by the U.S. Food and Drug Administration. Performed By: #### M GO, CHM7, IPB, CKB, TRIG, LDO #### [facility] (DEFAULT) [address] [place] [address] GIFTED PROGRAM TEACHER-2,CSF Negative Normal Negative [facility] Comment on above: Result Comment: ADDITIONAL INFORMATION This test was developed and its performance characteristics determined by [facility] in a manner consistent with CLIA requirements. This test has not been cleared or approved by the U.S. Food and Drug Administration. Performed By: #### M GO, CHM7, IPB, CKB, TRIG, LDO #### [facility] (DEFAULT) [address] [place] [address] GIFTED PROGRAM TEACHER-TR,CSF Negative Normal Negative [facility] Comment on above: Result Comment: ADDITIONAL INFORMATION This test was developed and its performance characteristics determined by [facility] in a manner consistent with CLIA requirements. This test has not been cleared or approved by the U.S. Food and Drug Administration. Performed By: #### Dede OMER, CHM7, IPB, CKB, TRIG, LDO #### [facility] (DEFAULT) [address] [place] [address] PDE10A AB IFA, CSF Negative Normal Negative [facility] Comment on above: Result Comment: ADDITIONAL INFORMATION This test was developed and its performance characteristics determined by [facility] in a manner consistent with CLIA requirements. This test has not been cleared or approved by the U.S. Food and Drug Administration. Performed By: #### Dede OMER, CHM7, IPB, CKB, TRIG, LDO #### [facility] (DEFAULT) [address] [place] [address] Septin-7 IFA, CSF Negative Normal Negative [facility] Comment on above: Result Comment: ADDITIONAL INFORMATION This test was developed and its performance characteristics determined by [facility] in a manner consistent with CLIA requirements. This test has not been cleared or approved by the U.S. Food and Drug Administration. Performed By: #### Dede OMER, CHM7, IPB, CKB, TRIG, LDO #### [facility] (DEFAULT) [address] [place] [address] Tri[employer]ite Motif-Containing Protein 46 IgG IFA, CSF Negative Normal Negative [facility] Comment on above: Result Comment: ADDITIONAL INFORMATION This test was developed and its performance characteristics determined by [facility] in a manner consistent with CLIA requirements. This test has not been cleared or approved by the U.S. Food and Drug Administration. Test Performed by: [address] [address] Kiln Repairer: Michael Pope Ph.D.; CLIA# [id number] Performed By: #### M GO, CHM7, IPB, CKB, TRIG, LDO #### [facility] (DEFAULT) [address] [place] [address]368 HAPTOGLOBINon 05-05-2024 Haptoglobin 306 mg/dL High 44-215 [facility] Comment on above: Performed By: #### F CRAG #### [facility] (DEFAULT) [address] [place] [address] 17838 HEP B SURFACE AG-Nikolai 04-08 Hepatitis B Surface Ag-Stat Negative Normal Negative [facility] Comment on above: Performed By: #### F CRAG #### [facility] (DEFAULT) [address] [place] [address] IONIZED CALCIUM, SERUMon ICA 4.62 mg/dL Normal 4.60-5.30 [facility] Comment on above: Performed By: #### F CRAG #### [facility] (DEFAULT) [address] [place] [address] ICA 4.24 mg/dL Low 4.60-5.30 [facility] Comment on above: Performed By: #### F CRAG #### [facility] (DEFAULT) [address] [place] [address] 93748 LACTATE, CSFon 05-05-2024 Lactate, CSF 1.5 mmol/L Normal <2.8 [facility] Comment on above: Performed By: #### M GO, CHM7, IPB, CKB, TRIG, LDO #### [facility] (DEFAULT) [address] [place] [address]777 LOWER RESPIRATORY CULTURE, B ACTERIALon 05-05-2024 Bacteria identified Cx Nom (Unsp spec) Normal [facility] Comment on above: Result Comment: Grow th 4471 Light Growth Common oropharyngeal microbes Performed By: #### R ES #### [facility] (DEFAULT) [address] [place] [address]487 Microscopic observation Gram stain Nom (Unsp spec) Normal [facility] Comment on above: Result Comment: Neut rophils, Heavy Contaminating bacteria and epithelials present Specimen is of optimum quality Performed By: #### R ES #### [facility] (DEFAULT) [address] [place] [address] MAGNESIUMon 05-05-2024 Magnesium [Mass/Vol] 2.2 mg/dL Normal 1.6-2.6 [facility] Comment on above: Performed By: #### M GO, CHM7, IPB, CKB, TRIG, LDO #### [facility] (DEFAULT) [address] [place] [address] 36911 Magnesium [Mass/Vol] 1.5 mg/dL Low 1.6-2.6 [facility] Comment on above: Performed By: #### M GO, CHM7, IPB, CKB, TRIG, LDO #### [facility] (DEFAULT) [address] [place] [address] 27082 Magnesium [Mass/Vol] 1.5 mg/dL Low 1.6-2.6 [facility] Comment on above: Performed By: #### M GO, CHM7, IPB, CKB, TRIG, LDO #### [facility] (DEFAULT) [address] [place] [address] MENINGITIS/ENCEPHALITIS PANE L, CSFon 05-05-2024 CMV DNA Not detected Normal Not Detected [facility] Comment on above: Order Comment: A neg ative result does not exclude the possibility of MEDICATION TECH infection and should not be used as [...] Cryptococcus neoformans/luly. Performed By: #### M OMER, RITAM7, IPB, CKB, TRIG, LDO #### [facility] (DEFAULT) [address] [place] [address] Cryptococcus Luly/Neoformans DNA Not detected Normal Not Detected [facility] Comment on above: Order Comment: A neg ative result does not exclude the possibility of MEDICATION TECH infection and should not be used as [...] Cryptococcus neoformans/luly. Performed By: #### M OMER, RITAM7, IPB, CKB, TRIG, LDO #### [facility] (DEFAULT) [address] [address] E. Coli K1 DNA Not detected Normal Not Detected [facility] Comment on above: Order Comment: A neg ative result does not exclude the possibility of MEDICATION TECH infection and should not be used as [...] CHM7, IPB, CKB, TRIG, LDO #### [facility] (DEFAULT) [address] [address] Enterovirus RNA Not detected Normal Not Detected [facility] Comment on above: Order Comment: A neg ative result does not exclude the possibility of MEDICATION TECH infection and should not be used as [...] CHM7, IPB, CKB, TRIG, LDO #### [facility] (DEFAULT) [address] [address] Haemophilus Influenza DNA Not detected Normal Not Detected [facility] Comment on above: Order Comment: A neg ative result does not exclude the possibility of MEDICATION TECH infection and should not be used as [...] CHM7, IPB, CKB, TRIG, LDO #### [facility] (DEFAULT) [address] [place] [address] 17853 Hhv-6 DNA Not detected Normal Not Detected [facility] Comment on above: Order Comment: A neg ative result does not exclude the possibility of MEDICATION TECH infection and should not be used as [...] CHM7, IPB, CKB, TRIG, LDO #### [facility] (DEFAULT) [address] [place] [address] 59486 Hsv-1 DNA Not detected Normal Not Detected [facility] Comment on above: Order Comment: A neg ative result does not exclude the possibility of MEDICATION TECH infection and should not be used as [...] CHM7, IPB, CKB, TRIG, LDO #### [facility] (DEFAULT) [address] [place] [address] 14657 Hsv-2 DNA Not detected Normal Not Detected [facility] Comment on above: Order Comment: A neg ative result does not exclude the possibility of MEDICATION TECH infection and should not be used as [...] CHM7, IPB, CKB, TRIG, LDO #### [facility] (DEFAULT) [address] [place] [address] Human Parechovirus RNA Not detected Normal Not Detected [facility] Comment on above: Order Comment: A neg ative result does not exclude the possibility of MEDICATION TECH infection and should not be used as [...] CHM7, IPB, CKB, TRIG, LDO #### [facility] (DEFAULT) [address] [address] Listeria Monocytogenes DNA Not detected Normal Not Detected [facility] Comment on above: Order Comment: A neg ative result does not exclude the possibility of MEDICATION TECH infection and should not be used as [...] CHM7, IPB, CKB, TRIG, LDO #### [facility] (DEFAULT) [address] [address] Neisseria Meningitidis DNA Not detected Normal Not Detected [facility] Comment on above: Order Comment: A neg ative result does not exclude the possibility of MEDICATION TECH infection and should not be used as [...] CHM7, IPB, CKB, TRIG, LDO #### [facility] (DEFAULT) [address] [address] Streptococcus Agalactiae DNA Not detected Normal Not Detected [facility] Comment on above: Order Comment: A neg ative result does not exclude the possibility of MEDICATION TECH infection and should not be used as [...] and Cryptococcus neoformans/luly. Performed By: #### M RITA TELLOM7, IPB, CKB, TRIG, LDO #### [facility] [address] [place] [address] Streptococcus Pneumoniae DNA Not detected Normal Not Detected [facility] Comment on above: Order Comment: A neg ative result does not exclude the possibility of MEDICATION TECH infection and should not be used as [...] Cryptococcus neoformans/luly. Performed By: #### M OMER, RITAM7, IPB, CKB, TRIG, LDO #### [facility] (DEFAULT) [address] [place] [address] Varicella Zoster DNA Not detected Normal Not Detected [facility] Comment on above: Order Comment: A neg ative result does not exclude the possibility of MEDICATION TECH infection and should not be used as [...] CHM7, IPB, CKB, TRIG, LDO #### [facility] (DEFAULT) [address] [place] [address] PHOSPHATE, INORGANICon 05-05 Phosphorous 3.8 mg/dL Normal 2.2-4.6 [facility] Comment on above: Performed By: #### M GO, CHM7, IPB, CKB, TRIG, LDO #### [facility] (DEFAULT) [address] [place] [address] 83851 Phosphorous 3.8 mg/dL Normal 2.2-4.6 [facility] Comment on above: Performed By: #### M GO, CHM7, IPB, CKB, TRIG, LDO #### [facility] (DEFAULT) [address] [place] [address]278 POTASSIUMon 05-05-2024 Potassium [Moles/Vol] 4.2 mmol/L Normal 3.5-5.0 [facility] Comment on above: Performed By: #### M GO, CHM7, IPB, CKB, TRIG, LDO #### [facility] (DEFAULT) [address] [place] [address] PROTEIN & GLUCOSE, CSFon CSF Glucose 56 mg/dL Normal 40-70 [facility] Comment on above: Performed By: #### M GO, CHM7, IPB, CKB, TRIG, LDO #### [facility] (DEFAULT) [address] [place] [address] 67003 CSF Protein 33 mg/dL Normal 15-45 [facility] Comment on above: Performed By: #### M GO, CHM7, IPB, CKB, TRIG, LDO #### [facility] (DEFAULT) [address] [place] [address] SCREEN: MRSA/MSSAon 05-05-19 25 Methicillin Resistant S. Aureus By Pcr Negative Normal Negative [facility] Comment on above: Order Comment: Colle [...] by the Clinical Microbiology Laboratory at [facility]. It has not been cleared or approved by the FDA.The laboratory is regulated under CLIA as qualified to perform high-complexity testing. This test is used for clinical purposes. It should not be regarded as investigational or for research. Performed By: #### M OMER, CHM7, IPB, CKB, TRIG, LDO #### [facility] (DEFAULT) [address] [address] Staphylococcus Aureus By Pcr Negative Normal Negative [facility] Comment on above: Order Comment: Colle [...] by the [facility] Microbiology [facility] at [facility]. It has not been cleared or approved by the FDA.The laboratory is regulated under CLIA as qualified to perform high-complexity testing. This test is used for clinical purposes. It should not be regarded as investigational or for research. Performed By: #### M OMER, CHM7, IPB, CKB, TRIG, LDO #### [facility] (DEFAULT) [address] [address] T4 FREEon 05-05-2024 Free T4 [Mass/Vol] 1.49 ng/dL Normal 0.89-1.76 [facility] Comment on above: Performed By: #### M OMER, CHM7, IPB, CKB, TRIG, LDO #### [facility] (DEFAULT) [address] [address] TRIGLYCERIDEon 05-05-2024 Triglyceride [Mass/Vol] 113 mg/dL Normal <150 [facility] Comment on above: Order Comment: While on Propofol. Result Comment: [<15 0 mg/dL: Desirable] [150-199 mg/dL: Borderline] [200-499 mg/dL: High] [>500 mg/dL: Very High] Performed By: #### M GO, CHM7, IPB, CKB, TRIG, LDO #### [facility] (DEFAULT) [address] [place] [address] TSH W/FT4 REFLEXon TSH 12.332 uIU/mL High 0.550-4.78 0 [facility] Comment on above: Performed By: #### M GO, CHM7, IPB, CKB, TRIG, LDO #### [facility] (DEFAULT) [address] [place] [address] VANCOMYCIN LEVEL, RANDOMon 0 05-05-2024 Vancomycin 21.7 mcg/mL High Peak: 20.0-40.0 mcg/mL, Trough: 10.0-20.0 mcg/mL [facility] Comment on above: Order Comment: While on Propofol. Performed By: #### M GO, CHM7, IPB, CKB, TRIG, LDO #### [facility] (DEFAULT) [address] [place] [address]169 VITAMIN D (25-HYDROXY,TOTAL) on 05-05-2024 25-OH Vitamin D Total 17.6 ng/mL Low 30.0-100.0 [facility] Comment on above: Order Comment: Vitam in D values have been shown to be falsely decreased in lipemic samples and should be interpreted with caution. Result Comment: <10 Deficiency 10- Insufficiency 30-100 Optimal Level >100 Possible Toxicity Performed By: #### F CRAG #### [facility] (DEFAULT) [address] [place] [address] XR ABDOMEN 1 VIEW PORTABLEon 05-05-2024 XR [...] Similar visualized dilated small bowel loops. Normal [facility] XR CHEST 1 VIEW PORTABLEon 0 [...] have reviewed and approved this report. Normal [facility] XR CHEST 1 VIEW PORTABLE EXAM: [...] have reviewed and approved this report. Normal [facility] ABORH TYPE RECONFIRMATIONon 05-04-2024 ABO/RH(D) TYPE AB POS Normal [facility] Comment on above: Result Comment: @ 23:40 by EKN: Performed By: #### T YPEC #### [facility] (DEFAULT) [address] [place] [address] AMMONIAon 05-04-2024 Ammonia (P) [Moles/Vol] 31 umol/L Normal 6-47 [facility] Comment on above: Performed By: #### M GO, CHM7, IPB, CKB, TRIG, LDO #### [facility] (DEFAULT) [address] [place] [address]204 Absolute neutrophil countOrd ered By: Ralph Haynes on 05-04-2024 Absolute neutrophil count 9.8 X10^3/uL High 2.0-7.7 [facility] Ammoniaon 05-04-2024 Ammonia (P) [Moles/Vol] 20.0 umol/L Normal 11-32 [facility] Comment on above: Performed By: #### L 503.5510, L501.9520 ####[facility] [address] [place], [address] Arterial patency Wrist arter y --pre arterial punctureOrdered By: Adithya Harrell on 05-04-2024 Assessment of wrist artery patency prior to arterial puncture Positive [facility] BRCon 05-04-2024 RC Normal [facility] Comment on above: Result Comment: [id number] ABN RC TRANSFUSED 05/04/24 1258 Performed By: #### B RC, BTS ####[facility] [address] [place], [address] Base excess Calc (BldV) [Mol es/Vol]Ordered By: Adithya Harrell on 05-04-2024 Blood base excess determination 0 mmol/L -2-2 [facility] Basic Metabolic Profile (BMP )on 05-04-2024 BUN/CRE 15.6 RATIO Normal 10-20 [facility] Comment on above: Performed By: #### L 500.2500, L100.0100 ####[facility] [address] [place], [address] CA,Total 7.5 mg/dL Low 8.5-10.1 [facility] Comment on above: Performed By: #### L 500.2500, L100.0100 ####[facility] [address] [place], [address] Chloride [Moles/Vol] 106 mmol/L Normal 98-107 [facility] Comment on above: Performed By: #### L 500.2500, L100.0100 ####[facility] [address] [place], [address] CO2 [Moles/Vol] 23.0 mmol/L Normal 21.0-32.0 [facility] Comment on above: Performed By: #### L 500.2500, L100.0100 ####[facility] [address] [place], [address] Creatinine [Mass/Vol] 2.88 mg/dL High 0.55-1.02 [facility] Comment on above: Result Comment: The validity of the calculated GFR GFRAA in patients over70 years has not been determined. Clinical correlation isessential. Performed By: #### L 500.2500, L100.0100 ####[facility] [address] [place], [address] ECRCL 17.75 ml/min Normal [facility] Comment on above: Performed By: #### L 500.2500, L100.0100 ####[facility] [address] [place], [address] EST GFR - AA 20 mL/min Low >60 [facility] Comment on above: Result Comment: Afri can [place] GFR Calc Performed By: #### L 500.2500, L100.0100 ####[facility] [address] [place], [address] GAP 9 Normal 5-15 [facility] Comment on above: Performed By: #### L 500.2500, L100.0100 ####[facility] [address] [place], [address] GFR/1.73 sq M.predicted among non-blacks MDRD (S/P/Bld) [Vol rate/Area] 17 mL/min/{1.73_m2} Low >60 [facility] Comment on above: Result Comment: Non- GFR Calc Performed By: #### L 500.2500, L100.0100 ####[facility] [address] [place], [address] Glucose [Mass/Vol] 104 mg/dL Normal 74-106 [facility] Comment on above: Result Comment: Fast ing Glucose result from 100 to 125 mg/dLsuggests IMPAIRED HOMEOSTASIS per A.D.A. criteria. Performed By: #### L 500.2500, L100.0100 ####[facility] [address] [place], [address] Potassium [Moles/Vol] 3.9 mmol/L Normal 3.5-5.1 [facility] Comment on above: Performed By: #### L 500.2500, L100.0100 ####[facility] [address] [place], [address] Sodium [Moles/Vol] 139 mmol/L Normal 136-145 [facility] [facility] Comment on above: Performed By: #### L 500.2500, L100.0100 ####[facility] [address] [place], [address] Urea nitrogen [Mass/Vol] 45 mg/dL High 7-18 [facility] Comment on above: Performed By: #### L 500.2500, L100.0100 ####[facility] [address] [place], [address] Basophil percentageOrdered B y: Ralph Sidhutimothy on 05-04-2024 Basophil percentage 0.3 % 0-1 [facility] ALMA DELIA TEST Positive Normal [facility] Comment on above: Performed By: #### L 9000.0800 ####[facility] [address] [place], [address] Base excess Calc (Bld) [Moles/Vol] 0 mmol/L Normal -2 to +2 [facility] Comment on above: Performed By: #### L 9000.0800 ####[facility] [address] [place], [address] Blood Gas Type ART Normal [facility] Comment on above: Performed By: #### L 9000.0800 ####[facility] [address] [place], [address] CO2 [Moles/Vol] 24 mmol/L Normal [facility] Comment on above: Performed By: #### L 9000.0800 ####[facility] [address] [place], [address] FI02 25.0 Normal [facility] Comment on above: Performed By: #### L 9000.0800 ####[facility] [address] [place], [address] HCO3 (Bld) [Moles/Vol] 22.8 mmol/L Normal 22-26 [facility] Comment on above: Performed By: #### L 8999.0800 ####[facility] [address] [place], [address] Mode AC/PC Normal [facility] Comment on above: Performed By: #### L 0.0800 ####[facility] [address] [place], [address] O2 Delivery Dev Adult Vent Normal [facility] Comment on above: Performed By: #### L 8999.08 ####[facility] [address] [place], [address] pCO2 26.4 mmHg Low 35-45 [facility] Comment on above: Performed By: #### L 8999.08 ####[facility] [address] [place], [address] PEEP 5 Normal [facility] Comment on above: Performed By: #### L 8999.08 ####[facility] [address] [place], [address] pH (Bld) 7.54 [pH] High 7.35-7.45 [facility] Comment on above: Performed By: #### L 8999.08 ####[facility] [address] [place], [address] PIP 20 Normal [facility] Comment on above: Performed By: #### L 8999.0800 ####[facility] [address] [place], [address] PO2 78 mmHG Normal 75-100 [facility] Comment on above: Performed By: #### L 8999.0800 ####[facility] [address] [place], [address] RR 14 Normal [facility] Comment on above: Performed By: #### L 0.0800 ####[facility] [address] [place], [address] SITE L Radial Normal [facility] Comment on above: Performed By: #### L 0.0800 ####[facility] [address] [place], [address] SO2 97 Normal 95-99 [facility] Comment on above: Performed By: #### L 9000.0800 ####[facility] [address] [place], [address] Blood bicarbonate measuremen tOrdered By: Adithya Harrell on 05-04-2024 Blood bicarbonate measurement 22.8 mmol/L 22- [facility] Blood urea nitrogen (BUN)/cr eatinine ratioOrdered By: Ralph Haynes on 05-04-2024 Blood urea nitrogen (BUN)/creatinine ratio 15.6 RATIO 10-20 [facility] RAPHAEL AURIS SCREEN BY PCRo n 05-04-2024 Raphael auris Screen by PCR Not detected Normal Not Detected [facility] Comment on above: Order Comment: This test was performed using a real-time PCR assay. This test was developed, and its performance characteristics determined by The [facility] Laboratory at [facility]. It has not been cleared or approved by the FDA. The laboratory is regulated under CLIA as qualified to perform high-complexity testing. This test is used for clinical purposes. It should not be regarded as investigational or for research. Performed By: #### M GO, CHM7, IPB, CKB, TRIG, LDO #### [facility] (DEFAULT) [address] [place] [address] CBC AND ELECTRONIC DIFFon Hematocrit (Bld) [Volume fraction] 24.7 % Low 34.9-44.3 [facility] Comment on above: Performed By: #### R ES #### [facility] (DEFAULT) [address] [address] Hemoglobin (Bld) [Mass/Vol] 7.9 g/dL Low 11.4-15.2 [facility] Comment on above: Performed By: #### R ES #### [facility] (DEFAULT) [address] [address] MCV (RBC) [Entitic vol] 98.8 fL High 79.6-97.7 [facility] Comment on above: Performed By: #### R ES #### [facility] (DEFAULT) [address] [address] Mean Cell Hgb 31.6 pg Normal 25.9-33.9 [facility] Comment on above: Performed By: #### R ES #### [facility] (DEFAULT) [address] [address] Mean Cell Hgb Conc 32.0 g/dL Normal 31.4-35.9 [facility] Comment on above: Performed By: #### R ES #### [facility] (DEFAULT) [address] [address] Mean Platelet Volume Normal [facility] Comment on above: Result Comment: Not measured Performed By: #### R ES #### [facility] (DEFAULT) [address] [address] Platelets (Bld) [#/Vol] 96 10*3/uL Low 150-393 [facility] Comment on above: Result Comment: This is an appended report. These results have been appended to a previously preliminary verified report. Performed By: #### R ES #### [facility] (DEFAULT) [address] [address] RBC (Bld) [#/Vol] 2.50 10*6/uL Low 3.91-5.04 [facility] Comment on above: Performed By: #### R ES #### [facility] (DEFAULT) [address] [place] [address] RBC Distribution 16.7 % High 10.8-14.[address] [facility] Comment on above: Performed By: #### R ES #### [facility] (DEFAULT) [address] [place] [address] WBC (Bld) [#/Vol] 17.39 10*3/uL High 3.99-11.19 [facility] Comment on above: Result Comment: This is an appended report. These results have been appended to a previously preliminary verified report. Performed By: #### R ES #### [facility] (DEFAULT) [address] [place] [address] CBC W/Diff, Automatedon 04-07 PLT EST SLT DEC Normal ADEQ [facility] Comment on above: Performed By: #### L 500.2500, L100.0100 ####[facility] [address] [facility] [place], [address] STOMATOCYTE 1+ Normal [facility] Comment on above: Performed By: #### L 500.2500, L100.0100 ####[facility] [address] [facility] [place], [address] TARGET CELLS 1+ Normal [facility] Comment on above: Performed By: #### L 500.2500, L100.0100 ####[facility] [address] [facility] [place], [address] CHEM 7 (LYTES,BUN,CREA,GLUC) on 05-04-2024 Anion gap [Moles/Vol] 14 mmol/L Normal 7-17 [facility] Comment on above: Performed By: #### R ES #### [facility] (DEFAULT) [address] [place] [address] Chloride [Moles/Vol] 104 mmol/L Normal 98-108 [facility] Comment on above: Performed By: #### R ES #### [facility] (DEFAULT) [address] [place] [address] CO2 [Moles/Vol] 22 mmol/L Normal 21-31 [facility] Comment on above: Performed By: #### R ES #### [facility] (DEFAULT) [address] [place] [address] Creatinine [Mass/Vol] 3.28 mg/dL High 0.50-1.20 [facility] Comment on above: Performed By: #### R ES #### [facility] (DEFAULT) [address] [place] [address] GFR/1.73 sq M.predicted among non-blacks MDRD (S/P/Bld) [Vol rate/Area] 14 mL/min/{1.73_m2} Low >=60 [facility] Comment on above: Result Comment: Repo rted eGFR is based on the CKD-EPI 2020 equation using creatinine, age, and sex. Performed By: #### R ES #### [facility] (DEFAULT) [address] [place] [address] Glucose [Mass/Vol] 105 mg/dL High 70-99 [facility] Comment on above: Performed By: #### R ES #### [facility] (DEFAULT) [address] [place] [address] Osmolality [Osmolality] 298 mosm/kg Normal 278-305 [facility] Comment on above: Performed By: #### R ES #### [facility] (DEFAULT) [address] [place] [address] Potassium [Moles/Vol] 4.5 mmol/L Normal 3.5-5.0 [facility] Comment on above: Performed By: #### R ES #### [facility] (DEFAULT) [address] [place] [address] Sodium [Moles/Vol] 135 mmol/L Normal 135-145 [facility] Comment on above: Performed By: #### R ES #### [facility] (DEFAULT) [address] [place] [address] Urea nitrogen [Mass/Vol] 49 mg/dL High 7-25 [facility] Comment on above: Performed By: #### R ES #### [facility] (DEFAULT) [address] [place] [address] Urea nitrogen/Creatinine [Mass ratio] 15 mg/mg Normal [facility] Comment on above: Performed By: #### R ES #### [facility] (DEFAULT) [address] [place] [address] Calcium [Mass/Vol]Ordered By : Ralph Hayens on 05-04-2024 Serum or plasma calcium measurement (mass/volume) 7.5 mg/dL Low 8.5-10.1 [facility] Carbon dioxide measurementOr dered By: Ralph Haynes on 05-04-2024 Carbon dioxide measurement 23.0 mmol/L 21.0-32.0 [facility] Chloride measurementOrdered By: Ralph Haynes on 05-04-2024 Chloride measurement 106 mmol/L 98-107 [facility] Creatinine [Mass/Vol]Ordered By: Ralhp Haynes on 05-04-2024 Serum or plasma creatinine measurement (mass/volume) 2.88 mg/dL High 0.55-1.02 [facility] Determination of fraction of inspired oxygenOrdered By: Adithya Harrell on 05-04-2024 Determination of fraction of inspired oxygen 25.0 [facility] Eosinophil percentageOrdered By: Ralph Haynes on 05-04-2024 Eosinophil percentage 1.3 % 0-5 [facility] Erythrocyte distribution wid th (RBC) [Ratio]Ordered By: Ralph Haynes on 05-04-2024 Erythrocyte distribution width ratio 16.3 % High 11.6-14.6 [facility] Erythrocyte distribution width standard deviation 57.5 fl High 35.1-43.9 [facility] Estimated glomerular filtrat ion rate (GFR) AmericanOrdered By: Ralph Haynes on 05-04-2024 Estimated glomerular filtration rate (GFR) 20 mL/min Low >60 [facility] Estimation of creatinine jackie aranceOrdered By: Ralph Haynes on 05-04-2024 Estimation of creatinine clearance 17.75 ml/min [facility] Glomerular filtration rate ( GFR) estimationOrdered By: Ralph Haynes on 05-04-2024 Glomerular filtration rate (GFR) estimation 17 mL/min Low >60 [facility] Glucose measurementOrdered B y: Ralph Haynes on 05-04-2024 Glucose measurement 104 mg/dL 74-106 [facility] HEPATIC FUNCTION PANELon Albumin [Mass/Vol] 2.4 g/dL Low 3.5-5.0 [facility] Comment on above: Performed By: #### R ES #### [facility] (DEFAULT) [address] [place] [address] ALP [Catalytic activity/Vol] 84 U/L Normal 32-126 [facility] Comment on above: Performed By: #### R ES #### [facility] (DEFAULT) [address] [place] [address] ALT [Catalytic activity/Vol] 11 U/L Normal 9-48 [facility] Comment on above: Performed By: #### R ES #### [facility] (DEFAULT) [address] [place] [address] AST [Catalytic activity/Vol] 23 U/L Normal 10-39 [facility] Comment on above: Performed By: #### R ES #### [facility] (DEFAULT) [address] [place] [address] Bilirubin [Mass/Vol] 0.5 mg/dL Normal <1.5 [facility] Comment on above: Performed By: #### R ES #### [facility] (DEFAULT) [address] [place] [address] Bilirubin.indirect [Mass/Vol] 0.1 mg/dL Normal <0.3 [facility] Comment on above: Performed By: #### R ES #### [facility] (DEFAULT) [address] [place] [address] Protein [Mass/Vol] 4.6 g/dL Low 6.4-8.3 [facility] Comment on above: Performed By: #### R ES #### [facility] (DEFAULT) [address] [place] [address] HH, Hemoglobin AND Hematocri ton 05-04-2024 Hematocrit (Bld) [Volume fraction] 23.2 % Low [address] [place] [address] Comment on above: Performed By: #### L 100.0600 ####[facility] [address] [place], [address] Hemoglobin (Bld) [Mass/Vol] 7.6 g/dL Low 12.0-15.0 [facility] Comment on above: Performed By: #### L 100.0600 ####[facility] [address] [place], [address] Hematocrit (Bld) [Volume fraction] 19.7 % Low [address] [place] [address] Comment on above: Order Comment: Comme nts: Post Transfusion Performed By: #### L 100.0600 ####[facility] [address] [place], [address] Hemoglobin (Bld) [Mass/Vol] 6.4 g/dL Low 12.0-15.0 [facility] Comment on above: Order Comment: Comme nts: Post Transfusion Performed By: #### L 100.0600 ####[facility] [address] [place], [address] Hematocrit Auto (Bld) [Volum e fraction]Ordered By: Edgar Davies on 05-04-2024 Automated blood hematocrit (percentage) 23.2 % Low [address] Hemoglobin measurementOrdere d By: Edgar Davies on 05-04-2024 Hemoglobin measurement 7.6 g/dL Low 12.0-15.0 [facility] INFLUENZA A/B, RSV BY PCRon 05-04-2024 Influenza A - Pcr Not detected Normal Not Detected [facility] Comment on above: Order Comment: Viral [...] CHM7, IPB, CKB, TRIG, LDO #### [facility] (DEFAULT) [address] [address] Influenza B - Pcr Not detected Normal Not Detected [facility] Comment on above: Order Comment: Viral [...] CHM7, IPB, CKB, TRIG, LDO #### [facility] (DEFAULT) [address] [address] Rsv - Pcr Not detected Normal Not Detected [facility] Comment on above: Order Comment: Viral [...] CHM7, IPB, CKB, TRIG, LDO #### [facility] (DEFAULT) [address] [address] IONIZED CALCIUM, WHOLE BLOOD on 05-04-2024 ICA 3.97 mg/dL Low 4.60-5.30 [facility] Comment on above: Performed By: #### M GO, CHM7, IPB, CKB, TRIG, LDO #### [facility] (DEFAULT) [address] [address] Immature granulocytes/100 WB C Auto (Bld)Ordered By: Ralph Haynes on 05-04-2024 Automated immature granulocyte percentage 4.700 % High 0.0-0.9 [facility] Lymphocytes Auto (Unsp spec) [#/Vol]Ordered By: Ralph Haynes on 05-04-2024 Absolute lymphocyte count 2.03 X10^3/uL 0.83-4.51 [facility] Lymphocytes/100 WBC Auto (Un sp spec)Ordered By: Ralph Haynes on 05-04-2024 Automated lymphocyte count as percentage of total leukocytes 14.6 % Low 19-41 [facility] MAGNESIUMon 05-04-2024 Magnesium [Mass/Vol] 1.5 mg/dL Low 1.6-2.6 [facility] Comment on above: Performed By: #### R ES #### [facility] (DEFAULT) [address] [address] MCV (RBC) [Entitic vol]Order ed By: Ralph Haynes on 05-04-2024 MCV (mean corpuscular volume) determination 96.4 fL 81-99 [facility] MR/CON.PCM.NEon 05-04-2024 MR/CON.PCM.NE Normal [facility] Mean corpuscular hemoglobin (MCH) determinationOrdered By: Rlaph Haynes on 05-04-2024 Mean corpuscular hemoglobin (MCH) determination 32.3 pg High 27.0-32.0 [facility] Mean corpuscular hemoglobin concentration (MCHC) determinationOrdered By: Ralph Haynes on 05-04-2024 Mean corpuscular hemoglobin concentration (MCHC) determination 33.5 g/dL 32-36 [facility] Mean platelet volume determi nationOrdered By: Ralph Haynes on 05-04-2024 Mean platelet volume determination 11.6 fl 6.2-12.0 [facility] Monocyte percentageOrdered B y: Ralph Haynes on 05-04-2024 Monocyte percentage 8.2 % 0-10 [facility] Neutrophil percentageOrdered By: Ralph Haynes on 05-04-2024 Neutrophil percentage 70.9 % High 47-70 [facility] No Panel InformationOrdered By: Adithya Harrell on 05-04-2024 ART [facility] L Radial [facility] AC/PC [facility] Adult Vent [facility] 20 [facility] 14 [facility] 5 [facility] Nucleated red blood cell per centageOrdered By: Ralph Haynes on 05-04-2024 Nucleated red blood cell percentage 1.7 % 0-5 [facility] Oxygen saturation measuremen tOrdered By: Adithya Harrell on 05-04-2024 Oxygen saturation measurement 97 % 95-99 [facility] PHOSPHATE, INORGANICon 05-04 Phosphorous 3.8 mg/dL Normal 2.2-4.6 [facility] Comment on above: Performed By: #### R ES #### [facility] (DEFAULT) [address] [place] [address] PT,INR,PTTon 05-04-2024 aPTT Coag (Bld) [Time] 32.8 s Normal 24.0-34.3 [facility] Comment on above: Performed By: #### M GO, CHM7, IPB, CKB, TRIG, LDO #### [facility] (DEFAULT) [address] [place] [address] INR Coag (PPP) [Relative time] 1.1 {INR} Normal 0.9-1.1 [facility] Comment on above: Performed By: #### M GO, CHM7, IPB, CKB, TRIG, LDO #### [facility] (DEFAULT) [address] [place] [address] PT Coag (PPP) [Time] 14.2 s Normal 11.9-14.2 [facility] Comment on above: Performed By: #### M GO, CHM7, IPB, CKB, TRIG, LDO #### [facility] (DEFAULT) [address] [place] [address] Partial pressure of carbon d ioxide measurementOrdered By: Adithya Harrell on 05-04-2024 Partial pressure of carbon dioxide measurement 26.4 mmHg Low 35-45 [facility] Partial pressure of oxygen m easurementOrdered By: Adithya Harrell on 05-04-2024 Partial pressure of oxygen measurement 78 mmHG 75-100 [facility] Platelet countOrdered By: Roman Haynes on 05-04-2024 Platelet count 99 K/mm3 Low 150-450 [facility] Platelets LM Ql (Bld)Ordered By: Ralph Haynes on 05-04-2024 Platelet estimate SLT DEC ADEQ [facility] Potassium measurementOrdered By: Ralph Haynes on 05-04-2024 Potassium measurement 3.9 mmol/L 3.5-5.1 [facility] RBC Auto (Bld) [#/Vol]Ordere d By: Ralph Hyanes on 05-04-2024 Automated blood erythrocyte count 1.95 M/mm3 Low 4.2-5.4 [facility] SCREEN: MRSA/MSSAon 05-04-19 25 Methicillin Resistant S. Aureus By Pcr Negative Normal Negative [facility] Comment on above: Order Comment: Colle [...] by the [facility] at [facility]. It has not been cleared or approved by the FDA.The laboratory is regulated under CLIA as qualified to perform high-complexity testing. This test is used for clinical purposes. It should not be regarded as investigational or for research. Performed By: #### M GO, CHM7, IPB, CKB, TRIG, LDO #### [facility] ([facility]) [address] [place] [address] Staphylococcus Aureus By Pcr Negative Normal Negative [facility] Comment on above: Order Comment: Colle [...] by the [facility] at [facility]. It has not been cleared or approved by the FDA.The laboratory is regulated under CLIA as qualified to perform high-complexity testing. This test is used for clinical purposes. It should not be regarded as investigational or for research. Performed By: #### M GO, CHM7, IPB, CKB, TRIG, LDO #### [facility] (DEFAULT) [address] [address] Serum anion gap measurementO rdered By: Ralph Haynes on 05-04-2024 Serum anion gap measurement 9 5-15 [facility] Sodium levelOrdered By: Jeovanny Haynes on 05-04-2024 Sodium level 139 mmol/L 136-145 [facility] TSH QnOrdered By: Edgar sapp on 05-04-2024 Serum or plasma thyroid stimulating hormone (TSH) measurement (units/volume) 15.400 uIU/mL High 0.358-3.74 0 [facility] TYPE AND SCREENon 05-04-2024 ABO/RH(D) TYPE AB POS Normal [facility] Comment on above: Result Comment: @ 22:49 by FT04: Performed By: #### M GO, CHM7, IPB, CKB, TRIG, LDO #### [facility] (DEFAULT) [address] [place] [address] Outdate Specimen 05/07/2024 23:59 Normal [facility] Comment on above: Performed By: #### M GO, CHM7, IPB, CKB, TRIG, LDO #### [facility] (DEFAULT) [address] [address] Target cell detectionOrdered By: Ralph Haynes on 05-04-2024 Target cell detection 1+ [facility] Thyroid Stim Hormone (TSH)on 05-04-2024 TSH 15.400 uIU/mL High 0.358-3.74 0 [facility] Comment on above: Performed By: #### L 503.5510, L501.9520 ####[facility] [address] [place], [address] Total carbon dioxide measure mentOrdered By: Adithya Harrell on 05-04-2024 Total carbon dioxide measurement 24 mmol/L [facility] Type AND Screenon 05-04-2024 ABO and Rh group Nom (Bld) Blood group AB Rh(D) positive Normal [facility] Comment on above: Order Comment: CMV N EG? NNumber of units to transfuse: 1Reason for Ordering Blood: AcuteAre the blood/blood products to be transfused? YIs the patient having/had surgery? Hanna Rodriges Performed By: #### B RC, BTS ####[facility] [address] [place], [place], [id number] URINALYSIS REFLEX TO CULTURE PERFORMABLEon 05-04-2024 Appearance (U) Turbid Abnormal Clear [facility] Comment on above: Order Comment: For i ndwelling catheters, specimen collection is acceptable on catheter day 1 and 2 only. ? Performed By: #### M GO, CHM7, IPB, CKB, TRIG, LDO #### [facility] (DEFAULT) [address] [place] [address] Bacteria PRESENT Abnormal ABSENT [facility] Comment on above: Order Comment: For i ndwelling catheters, specimen collection is acceptable on catheter day 1 and 2 only. ? Performed By: #### M GO, CHM7, IPB, CKB, TRIG, LDO #### [facility] (DEFAULT) [address] [place] [address] 28423 Blood Urine Large Abnormal Negative [facility] Comment on above: Order Comment: For i ndwelling catheters, specimen collection is acceptable on catheter day 1 and 2 only. ? Performed By: #### M GO, CHM7, IPB, CKB, TRIG, LDO #### [facility] (DEFAULT) [address] [place] [address] 62602 Color (U) Yellow Normal Yellow [facility] Comment on above: Order Comment: For i ndwelling catheters, specimen collection is acceptable on catheter day 1 and 2 only. ? Performed By: #### M GO, CHM7, IPB, CKB, TRIG, LDO #### [facility] (DEFAULT) [address] [place] [address] 58756 Glucose Ql (U) Negative Normal Negative [facility] Comment on above: Order Comment: For i ndwelling catheters, specimen collection is acceptable on catheter day 1 and 2 only. ? Performed By: #### M GO, CHM7, IPB, CKB, TRIG, LDO #### [facility] (DEFAULT) [address] [place] [address] 43924 Ketones Ql (U) Negative Normal Negative [facility] Comment on above: Order Comment: For i ndwelling catheters, specimen collection is acceptable on catheter day 1 and 2 only. ? Performed By: #### M GO, CHM7, IPB, CKB, TRIG, LDO #### [facility] (DEFAULT) [address] [place] [address] 51959 Leukocyte esterase Test strip Ql (U) Large Abnormal Negative [facility] Comment on above: Order Comment: For i ndwelling catheters, specimen collection is acceptable on catheter day 1 and 2 only. ? Performed By: #### M GO, CHM7, IPB, CKB, TRIG, LDO #### [facility] (DEFAULT) [address] [place] [address] 47023 Mucus Ql (Urine sed) PRESENT Normal [facility] Comment on above: Order Comment: For i ndwelling catheters, specimen collection is acceptable on catheter day 1 and 2 only. ? Performed By: #### M GO, CHM7, IPB, CKB, TRIG, LDO #### [facility] (DEFAULT) [address] [place] [address] 09335 Nitrites Urine Negative Normal Negative [facility] Comment on above: Order Comment: For i ndwelling catheters, specimen collection is acceptable on catheter day 1 and 2 only. ? Performed By: #### M GO, CHM7, IPB, CKB, TRIG, LDO #### [facility] (DEFAULT) [address] [place] [address] 13624 pH (U) 5.0 [pH] Normal 5.0-7.0 [facility] Comment on above: Order Comment: For i ndwelling catheters, specimen collection is acceptable on catheter day 1 and 2 only. ? Performed By: #### M GO, CHM7, IPB, CKB, TRIG, LDO #### [facility] (DEFAULT) [address] [place] [address] 35268 Protein Urine 30 mg/dL Abnormal Negative [facility] Comment on above: Order Comment: For i ndwelling catheters, specimen collection is acceptable on catheter day 1 and 2 only. ? Performed By: #### M GO, CHM7, IPB, CKB, TRIG, LDO #### [facility] (DEFAULT) [address] [place] [address] 47016 RBC Urine 11-25 Abnormal 0-2 [facility] Comment on above: Order Comment: For i ndwelling catheters, specimen collection is acceptable on catheter day 1 and 2 only. ? Performed By: #### M GO, CHM7, IPB, CKB, TRIG, LDO #### [facility] (DEFAULT) [address] [place] [address] 00263 Specific [place] Urine 1.009 Normal 1.001 -1.03 5 [facility] Comment on above: Order Comment: For i ndwelling catheters, specimen collection is acceptable on catheter day 1 and 2 only. ? Performed By: #### M GO, CHM7, IPB, CKB, TRIG, LDO #### [facility] (DEFAULT) [address] [place] [address] 10400 Squamous/Epithelial Cells 6-10/hpf = 2+ Abnormal 0-2/hpf, 3-5/hpf = 1+ [facility] Comment on above: Order Comment: For i ndwelling catheters, specimen collection is acceptable on catheter day 1 and 2 only. ? Performed By: #### M GO, CHM7, IPB, CKB, TRIG, LDO #### [facility] (DEFAULT) [address] [place] [address] 05722 Urobilinogen Urine 0.2 E.U./dL Normal 0.2 E.U/dL, 1.0 E.U/dL [facility] Comment on above: Order Comment: For i ndwelling catheters, specimen collection is acceptable on catheter day 1 and 2 only. ? Performed By: #### M GO, CHM7, IPB, CKB, TRIG, LDO #### [facility] (DEFAULT) [address] [place] [address] 65153 WBC LM.HPF (Urine sed) [#/Area] /[HPF] Abnormal 0 - 5 [facility] Comment on above: Order Comment: For i ndwelling catheters, specimen collection is acceptable on catheter day 1 and 2 only. ? Performed By: #### M GO, CHM7, IPB, CKB, TRIG, LDO #### [facility] (DEFAULT) [address] [place] [address] 66422 URINE CULTUREon 05-04-2024 Bacteria identified Cx Nom (U) No Growth Normal [facility] Comment on above: Order Comment: For [...] CHM7, IPB, CKB, TRIG, LDO #### [facility] (DEFAULT) [address] [place] [address] 93460 Urea nitrogen [Mass/Vol]Orde red By: Ralph Haynes on 05-04-2024 Serum or plasma urea nitrogen measurement (mass/volume) 45 mg/dL High 7-18 [facility] Urine Cultureon 05-04-2024 URC Normal [facility] Comment on above: Performed By: #### M 100.2200, L400.0001 ####[facility] [address] [place], [place], [id number] VENOUS BLOOD GAS PLUS LACTAT Jose 05-04-2024 Base Excess -2.6 mmol/L Normal -3.0-3.0 [facility] Comment on above: Performed By: #### G ASVL #### [facility] (DEFAULT) [address] [place] [address] 10068 HCO3 (Bld) [Moles/Vol] 23 mmol/L Normal 22-29 [facility] Comment on above: Performed By: #### G ASVL #### [facility] (DEFAULT) [address] [place] [address] 34881 Lactate, Whole Blood 0.8 mmol/L Normal 0.5-1.6 [facility] Comment on above: Performed By: #### G ASVL #### [facility] (DEFAULT) [address] [place] [address] 38798 Oxygen saturation in Blood 74 % Normal 70-80 [facility] Comment on above: Performed By: #### G ASVL #### [facility] (DEFAULT) [address] [place] [address] 97242 pCO2, Venous 38 mm Hg Normal 36-52 [facility] Comment on above: Performed By: #### G ASVL #### [facility] (DEFAULT) [address] [place] [address] 41617 pH, Venous 7.38 Normal 7.32-7.43 [facility] Comment on above: Performed By: #### G ASVL #### [facility] (DEFAULT) [address] [place] [address] 27563 pO2, Venous 40 mm Hg Normal [facility] Comment on above: Result Comment: Veno us pO2 is not recommended for the evaluation of oxygen status, clinical correlation is recommended. Performed By: #### G ASVL #### [facility] (DEFAULT) [address] [place] [address] 00804 Specimen type Nom (Spec) Venous Normal [facility] Comment on above: Performed By: #### G ASVL #### [facility] (DEFAULT) [address] [place] [address] 60783 Vancomycin [Mass/Vol]Ordered By: Edgar Davies on 05-04-2024 Serum or plasma vancomycin level (mass/volume) 17.9 ug/mL High 0.0-15.0 [facility] Vancomycin, Random Levelon 0 05-04-2024 VANCO, RANDOM 17.9 ug/mL High 0.0-15.0 [facility] Comment on above: Result Comment: VANC OMYCIN STANDARD DRUG THERAPY: CRITICAL VALUE IS > 15.0 mg/LVANCOMYCIN HIGH INTENSITY THERAPY: CRITICAL VALUE IS > 20.0 mg/LPLEASE CONTACT PHARMACY SERVICES (#3947) FOR INTERPRETATIONOF RESULTS. THIS RESULT DOES NOT REPRESENT A PEAK OR TROUGHLEVEL FOR THIS DRUG. Performed By: #### L 501.8850 ####[facility] [address] [place], [place], [id number] VANCO, RANDOM 20.6 ug/mL High 0.0-15.0 [facility] Comment on above: Result Comment: VANC OMYCIN STANDARD DRUG THERAPY: CRITICAL VALUE IS > 15.0 mg/LVANCOMYCIN HIGH INTENSITY THERAPY: CRITICAL VALUE IS > 20.0 mg/LPLEASE CONTACT PHARMACY SERVICES (#2369) FOR INTERPRETATIONOF RESULTS. THIS RESULT DOES NOT REPRESENT A PEAK OR TROUGHLEVEL FOR THIS DRUG. Performed By: #### L 501.8850 ####[facility] [address] [place], [address] Venous blood ammonia measure mentOrdered By: Edgar Davies on 05-04-2024 Venous blood ammonia measurement 20.0 umol/L 1132 [facility] White blood cell (WBC) count Ordered By: Ralph Haynes on 05-04-2024 White blood cell (WBC) count 13.9 K/mm3 High 4.4-11.0 [facility] XR ABDOMEN 1 VIEW PORTABLEon 05-04-2024 XR [...] of small bowel may reflect ileus. Normal [facility] pH (Unsp spec)Ordered By: Arnoldo Harrell on 05-04-2024 Measurement, pH 7.54 High 7.35-7.45 [facility] Albumin [Mass/Vol]Ordered By : Qian Albrecht on 05-03-2024 Serum or plasma albumin measurement (mass/volume) 1.8 g/dL Low 3.2-5.0 [facility] Basic Metabolic Profile (BMP )on 05-03-2024 BUN/CRE 18.0 RATIO Normal 10-20 [facility] Comment on above: Performed By: #### L 501.5200, L100.0100, L501.2300, L500.2500 ####[facility] [address] [place], [address] CA,Total 7.6 mg/dL Low 8.5-10.1 [facility] Comment on above: Performed By: #### L 501.5200, L100.0100, L501.2300, L500.2500 ####[facility] [address] [place], [address] Chloride [Moles/Vol] 110 mmol/L High 98-107 [facility] Comment on above: Performed By: #### L 501.5200, L100.0100, L501.2300, L500.2500 ####[facility] [address] [place], [address] CO2 [Moles/Vol] 22.0 mmol/L Normal 21.0-32.0 [facility] Comment on above: Performed By: #### L 501.5200, L100.0100, L501.2300, L500.2500 ####[facility] [address] [place], [address] Creatinine [Mass/Vol] 3.72 mg/dL High 0.55-1.02 [facility] Comment on above: Result Comment: The validity of the calculated GFR GFRAA in patients over70 years has not been determined. Clinical correlation isessential. Performed By: #### L 501.5200, L100.0100, L501.2300, L500.2500 ####[facility] [address] [place], [address] ECRCL 13.73 ml/min Normal [facility] Comment on above: Performed By: #### L 501.5200, L100.0100, L501.2300, L500.2500 ####[facility] [address] [place], [address] EST GFR - AA 15 mL/min Low >60 [facility] Comment on above: Result Comment: Afri can British GFR Calc Performed By: #### L 501.5200, L100.0100, L501.2300, L500.2500 ####[facility] [address] [place], [address] GAP 9 Normal 5-15 [facility] Comment on above: Performed By: #### L 501.5200, L100.0100, L501.2300, L500.2500 ####[facility] [address] [place], [address] GFR/1.73 sq M.predicted among non-blacks MDRD (S/P/Bld) [Vol rate/Area] 12 mL/min/{1.73_m2} Low >60 [facility] Comment on above: Result Comment: Non- GFR Calc Performed By: #### L 501.5200, L100.0100, L501.2300, L500.2500 ####[facility] [address] [place], [address] Glucose [Mass/Vol] 122 mg/dL High 74-106 [facility] Comment on above: Result Comment: Fast ing Glucose result from 100 to 125 mg/dLsuggests IMPAIRED HOMEOSTASIS per A.D.A. criteria. Performed By: #### L 501.5200, L100.0100, L501.2300, L500.2500 ####[facility] [address] [place], [address] Potassium [Moles/Vol] 4.1 mmol/L Normal 3.5-5.1 [facility] Comment on above: Performed By: #### L 501.5200, L100.0100, L501.2300, L500.2500 ####[facility] [address] [place], [address] Sodium [Moles/Vol] 140 mmol/L Normal 136-145 [facility] Comment on above: Performed By: #### L 501.5200, L100.0100, L501.2300, L500.2500 ####[facility] [address] [place], [address] Urea nitrogen [Mass/Vol] 67 mg/dL High 7-18 [facility] Comment on above: Performed By: #### L 501.5200, L100.0100, L501.2300, L500.2500 ####[facility] [address] [place], [address] Kidney and Bladderon 025 Kidney and Bladder Normal [facility] Magnesiumon 05-03-2024 Magnesium [Mass/Vol] 1.6 mg/dL Normal 1.6-2.6 [facility] Comment on above: Performed By: #### L 501.5200, L100.0100, L501.2300, L500.2500 ####[facility] [address] [place], [address] Magnesium measurementOrdered By: Ralph Haynes on 05-03-2024 Magnesium measurement 1.6 mg/dL 1.6-2.6 [facility] Manual differential comment Janes (Bld) [Interp]Ordered By: Ralph Haynes on 05-03-2024 Blood manual differential comment interpretation (narrative result) SCANNED [facility] Pathologist review Janes (Unsp spec) [Interp]Ordered By: Ralph Haynes on 05-03-2024 Review by pathologist Reviewed [facility] Phosphoruson 05-03-2024 Phosphate [Mass/Vol] 3.5 mg/dL Normal 2.5-4.9 [facility] Comment on above: Performed By: #### L 501.5200, L100.0100, L501.2300, L500.2500 ####[facility] [address] [place], [address] Phosphorus measurementOrdere d By: Qian Albrecht on 05-03-2024 Phosphorus measurement 2.4 mg/dL Low 2.5-4.9 [facility] Renal Profileon 05-03-2024 Albumin [Mass/Vol] 1.8 g/dL Low 3.2-5.0 [facility] Comment on above: Performed By: #### L 500.3600 ####[facility] [address] [place], [address] BUN/CRE 17.0 RATIO Normal 10-20 [facility] Comment on above: Performed By: #### L 500.3600 ####[facility] [address] [place], [address] CA,Total 7.9 mg/dL Low 8.5-10.1 [facility] Comment on above: Performed By: #### L 500.3600 ####[facility] [address] [place], [address] Chloride [Moles/Vol] 106 mmol/L Normal 98-107 [facility] Comment on above: Performed By: #### L 500.3600 ####[facility] [address] [place], [address] CO2 [Moles/Vol] 24.0 mmol/L Normal 21.0-32.0 [facility] Comment on above: Performed By: #### L 500.3600 ####[facility] [address] [place], [address] Creatinine [Mass/Vol] 2.35 mg/dL High 0.55-1.02 [facility] Comment on above: Result Comment: The validity of the calculated GFR GFRAA in patients over70 years has not been determined. Clinical correlation isessential. Performed By: #### L 500.3600 ####[facility] [address] [place], [address] ECRCL 21.74 ml/min Normal [facility] Comment on above: Performed By: #### L 500.3600 ####[facility] [address] [place], [address] EST GFR - AA 26 mL/min Low >60 [facility] Comment on above: Result Comment: Afri can [place] GFR Calc Performed By: #### L 500.3600 ####[facility] [address] [place], [address] GFR/1.73 sq M.predicted among non-blacks MDRD (S/P/Bld) [Vol rate/Area] 21 mL/min/{1.73_m2} Low >60 [facility] Comment on above: Result Comment: Non- GFR Calc Performed By: #### L 500.3600 ####[facility] [address] [place], [address] Glucose [Mass/Vol] 105 mg/dL Normal 74-106 [facility] Comment on above: Result Comment: Fast ing Glucose result from 100 to 125 mg/dLsuggests IMPAIRED HOMEOSTASIS per A.D.A. criteria. Performed By: #### L 500.3600 ####[facility] [address] [place], [address] Phosphate [Mass/Vol] 2.4 mg/dL Low 2.5-4.9 [facility] Comment on above: Performed By: #### L 500.3600 ####[facility] [address] [place], [address] Potassium [Moles/Vol] 4.0 mmol/L Normal 3.5-5.1 [facility] Comment on above: Performed By: #### L 500.3600 ####[facility] [address] [place], [address] Sodium [Moles/Vol] 139 mmol/L Normal 136-145 [facility] Comment on above: Performed By: #### L 500.3600 ####[facility] [address] [place], [address] Urea nitrogen [Mass/Vol] 40 mg/dL High 7-18 [facility] Comment on above: Performed By: #### L 500.3600 ####[facility] [address] [place], [address] Albumin [Mass/Vol] 1.8 g/dL Low 3.2-5.0 [facility] Comment on above: Performed By: #### L 500.3600 ####[facility] [address] [place], [address] BUN/CRE 18.0 RATIO Normal 10-20 [facility] Comment on above: Performed By: #### L 500.3600 ####[facility] [address] [place], [address] CA,Total 7.7 mg/dL Low 8.5-10.1 [facility] Comment on above: Performed By: #### L 500.3600 ####[facility] [address] [place], [address] Chloride [Moles/Vol] 109 mmol/L High 98-107 [facility] Comment on above: Performed By: #### L 500.3600 ####[facility] [address] [place], [address] CO2 [Moles/Vol] 22.0 mmol/L Normal 21.0-32.0 [facility] Comment on above: Performed By: #### L 500.3600 ####[facility] [address] [place], [address] Creatinine [Mass/Vol] 3.11 mg/dL High 0.55-1.02 [facility] Comment on above: Result Comment: The validity of the calculated GFR GFRAA in patients over70 years has not been determined. Clinical correlation isessential. Performed By: #### L 500.3600 ####[facility] [address] [place], [address] ECRCL 16.43 ml/min Normal [facility] Comment on above: Performed By: #### L 500.3600 ####[facility] [address] [place], [address] EST GFR - AA 18 mL/min Low >60 [facility] Comment on above: Result Comment: Afri can [place] GFR Calc Performed By: #### L 500.3600 ####[facility] [address] [place], [address] GFR/1.73 sq M.predicted among non-blacks MDRD (S/P/Bld) [Vol rate/Area] 15 mL/min/{1.73_m2} Low >60 [facility] Comment on above: Result Comment: Non- GFR Calc Performed By: #### L 500.3600 ####[facility] [address] [place], [address] Glucose [Mass/Vol] 111 mg/dL High 74-106 [facility] Comment on above: Result Comment: Fast ing Glucose result from 100 to 125 mg/dLsuggests IMPAIRED HOMEOSTASIS per A.D.A. criteria. Performed By: #### L 500.3600 ####[facility] [address] [place], [address] Phosphate [Mass/Vol] 3.2 mg/dL Normal 2.5-4.9 [facility] Comment on above: Performed By: #### L 500.3600 ####[facility] [address] [place], [address] Potassium [Moles/Vol] 4.0 mmol/L Normal 3.5-5.1 [facility] Comment on above: Performed By: #### L 500.3600 ####[facility] [address] [place], [address] Sodium [Moles/Vol] 140 mmol/L Normal 136-145 [facility] Comment on above: Performed By: #### L 500.3600 ####[facility] [address] [place], [address] Urea nitrogen [Mass/Vol] 56 mg/dL High 7-18 [facility] Comment on above: Performed By: #### L 500.3600 ####[facility] [address] [place], [address] Albumin [Mass/Vol] 2.0 g/dL Low 3.2-5.0 [facility] Comment on above: Performed By: #### L 500.3600 ####[facility] [address] [place], [address] BUN/CRE 18.2 RATIO Normal 10-20 [facility] Comment on above: Performed By: #### L 500.3600 ####[facility] [address] [place], [address] CA,Total 7.6 mg/dL Low 8.5-10.1 [facility] Comment on above: Performed By: #### L 500.3600 ####[facility] [address] [place], [address] Chloride [Moles/Vol] 110 mmol/L High 98-107 [facility] Comment on above: Performed By: #### L 500.3600 ####[facility] [address] [place], [address] CO2 [Moles/Vol] 21.0 mmol/L Normal 21.0-32.0 [facility] Comment on above: Performed By: #### L 500.3600 ####[facility] [address] [place], [address] Creatinine [Mass/Vol] 3.69 mg/dL High 0.55-1.02 [facility] Comment on above: Result Comment: The validity of the calculated GFR GFRAA in patients over70 years has not been determined. Clinical correlation isessential. Performed By: #### L 500.3600 ####[facility] [address] [place], [address] ECRCL 13.84 ml/min Normal [facility] Comment on above: Performed By: #### L 500.3600 ####[facility] [address] [place], [address] EST GFR - AA 15 mL/min Low >60 [facility] Comment on above: Result Comment: Afri can British GFR Calc Performed By: #### L 500.3600 ####[facility] [address] [place], [address] GFR/1.73 sq M.predicted among non-blacks MDRD (S/P/Bld) [Vol rate/Area] 13 mL/min/{1.73_m2} Low >60 [facility] Comment on above: Result Comment: Non- GFR Calc Performed By: #### L 500.3600 ####[facility] [address] [place], [address] Glucose [Mass/Vol] 120 mg/dL High 74-106 [facility] Comment on above: Result Comment: Fast ing Glucose result from 100 to 125 mg/dLsuggests IMPAIRED HOMEOSTASIS per A.D.A. criteria. Performed By: #### L 500.3600 ####[facility] [address] [place], [address] Phosphate [Mass/Vol] 3.5 mg/dL Normal 2.5-4.9 [facility] Comment on above: Performed By: #### L 500.3600 ####[facility] [address] [place], [address] Potassium [Moles/Vol] 4.1 mmol/L Normal 3.5-5.1 [facility] Comment on above: Performed By: #### L 500.3600 ####[facility] [address] [place], [address] Sodium [Moles/Vol] 140 mmol/L Normal 136-145 [facility] Comment on above: Performed By: #### L 500.3600 ####[facility] [address] [place], [address] Urea nitrogen [Mass/Vol] 67 mg/dL High 7-18 [facility] Comment on above: Performed By: #### L 500.3600 ####[facility] [address] [place], [address] Respiratory Cultureon 2024 RESPC Mixed normal respira tory gisela. No Streptococcus pneumoniae, beta-hemolytic Streptococcus or Staphylococcus aureus isolated. Normal [facility] Comment on above: Performed By: #### M 100.2000, M100.2400 ####[facility] [address] [place], [address] Vancomycin trough [Mass/Vol] Ordered By: Ralph Haynes on 05-03-2024 Serum or plasma trough vancomycin level 24.6 ug/mL High 5.0-15.0 [facility] Vancomycin, Random Levelon 0 05-03-2024 VANCO, RANDOM 20.8 ug/mL High 0.0-15.0 [facility] Comment on above: Result Comment: VANC OMYCIN STANDARD DRUG THERAPY: CRITICAL VALUE IS > 15.0 mg/LVANCOMYCIN HIGH INTENSITY THERAPY: CRITICAL VALUE IS > 20.0 mg/LPLEASE CONTACT PHARMACY SERVICES (#2319) FOR INTERPRETATIONOF RESULTS. THIS RESULT DOES NOT REPRESENT A PEAK OR TROUGHLEVEL FOR THIS DRUG. Performed By: #### L 501.8850 ####[facility] [address] [place], [place], [id number] VANCO, RANDOM 26.5 ug/mL High 0.0-15.0 [facility] Comment on above: Result Comment: VANC OMYCIN STANDARD DRUG THERAPY: CRITICAL VALUE IS > 15.0 mg/LVANCOMYCIN HIGH INTENSITY THERAPY: CRITICAL VALUE IS > 20.0 mg/LPLEASE CONTACT PHARMACY SERVICES (#3468) FOR INTERPRETATIONOF RESULTS. THIS RESULT DOES NOT REPRESENT A PEAK OR TROUGHLEVEL FOR THIS DRUG. Performed By: #### L 501.8850 ####[facility] [address] [place], [address] Vancomycin, Trough Levelon 0 05-03-2024 VANCO, TROUGH 24.6 ug/mL High 5.0-15.0 [facility] Comment on above: Order Comment: Comme nts: DRAW 30 MIN PRIOR TO [id number] Result Comment: VANC OMYCIN STANDARED DRUG THERAPY TROUGH LEVEL: 5.0 - 15.0 mg/LVANCOMYCIN HIGH INTENSITY THERAPY TROUGH LEVEL: 15.0 - 20.0 mg/LHigh Intensity therapy recommended for serious lifethreatening infections include:- Mfprdclulv-Mkjdxuegssnn-Lrvmxngfa (Ventilator/Healtcare Associated)-SepsisPLEASE CONTACT PHARMACY SERVICES (#9615) FOR INTERPRETATIONOF RESULTS. Performed By: #### L 501.8820 ####[facility] [address] [place], [place], [id number] 12 Lead EKGon 05-02-2024 12 Lead EKG Normal [facility] 12 Lead EKG Normal [facility] 12 Lead EKG Normal [facility] Blood Gases by [facility] 025 ALMA DELIA TEST N/A Normal [facility] Comment on above: Performed By: #### L 9000.0800 ####[facility] [address] [place], [address] Base excess Calc (Bld) [Moles/Vol] -17 mmol/L Low -2 to +2 [facility] Comment on above: Performed By: #### L 9000.0800 ####[facility] [address] [place], [address] Blood Gas Type ART Normal [facility] Comment on above: Performed By: #### L 9000.0800 ####[facility] [address] [place], [address] CO2 [Moles/Vol] 9 mmol/L Normal [facility] Comment on above: Performed By: #### L 9000.0800 ####[facility] [address] [place], [address] FI02 21.0 Normal [facility] Comment on above: Performed By: #### L 9000.0800 ####[facility] [address] [place], [address] HCO3 (Bld) [Moles/Vol] 8.8 mmol/L Low 22-26 [facility] Comment on above: Performed By: #### L 9000.0800 ####[facility] [address] [place], [address] Mode AC/PC Normal [facility] Comment on above: Performed By: #### L 9000.0800 ####[facility] [address] [place], [address] O2 Delivery Dev Adult Vent Normal [facility] Comment on above: Performed By: #### L 9000.0800 ####[facility] [address] [place], [address] pCO2 16.1 mmHg Invalid Interpretation Code 35-45 [facility] Comment on above: Performed By: #### L 9000.0800 ####[facility] [address] [place], [address] PEEP 5 Normal [facility] Comment on above: Performed By: #### L 9000.0800 ####[facility] [address] [place], [address] pH (Bld) 7.35 [pH] Normal 7.35-7.45 [facility] Comment on above: Performed By: #### L 9000.0800 ####[facility] [address] [place], [address] PO2 100 mmHG Normal 75-100 [facility] Comment on above: Performed By: #### L 9000.0800 ####[facility] [address] [place], [address] Read Back By Yes [facility] Comment on above: Performed By: #### L 9000.0800 ####[facility] [address] [place], [address] Gallardo [facility] Comment on above: Performed By: #### L 9000.0800 ####[facility] [address] [place], [address] RR 16 Normal [facility] Comment on above: Performed By: #### L 9000.0800 ####[facility] [address] [place], [address] SITE L Radial Normal [facility] Comment on above: Performed By: #### L 9000.0800 ####[facility] [address] [place], [address] SO2 98 Normal 95-99 [facility] Comment on above: Performed By: #### L 9000.0800 ####[facility] [address] [place], [address] Time Given 05:44:24 Normal [facility] Comment on above: Performed By: #### L 9000.0800 ####[facility] [address] [place], [address] Brain/Head without Contrasto n 05-02-2024 Brain/Head without Contrast Normal [facility] CBC W/Diff, Automatedon 04-07 Absolute Lymph 0.80 X10 3/uL Low 0.83-4.51 [facility] Comment on above: Performed By: #### L 501.2300, L501.5200, L100.0100 ####[facility] [address] [place], [address] Absolute Neut 11.5 X10 3/uL High 2.0-7.7 [facility] Comment on above: Performed By: #### L 501.2300, L501.5200, L100.0100 ####[facility] [address] [place], [address] Basophils/100 WBC (Bld) 0.1 % Normal 0-1 [facility] Comment on above: Performed By: #### L 501.2300, L501.5200, L100.0100 ####[facility] [address] [place], [address] Eosinophils/100 WBC (Bld) 0.2 % Normal 0-5 [facility] Comment on above: Performed By: #### L 501.2300, L501.5200, L100.0100 ####[facility] [address] [place], [address] Erythrocyte distribution width (RBC) [Ratio] 16.3 % High 11.6-14.6 [facility] Comment on above: Performed By: #### L 501.2300, L501.5200, L100.0100 ####[facility] [address] [place], [address] Hematocrit (Bld) [Volume fraction] 27.4 % Low 37-47 [facility] Comment on above: Performed By: #### L 501.2300, L501.5200, L100.0100 ####[facility] [address] [place], [address] Hemoglobin (Bld) [Mass/Vol] 8.7 g/dL Low 12.0-15.0 [facility] Comment on above: Performed By: #### L 501.2300, L501.5200, L100.0100 ####[facility] [address] [place], [address] IG% 0.700 Normal 0.0-0.9 [facility] Comment on above: Result Comment: IG% - Immature Granulocytes (promyelocytes, myelocytes andmetamyelocytes) > 1% indicates that a LEFT SHIFT is Present. Performed By: #### L 501.2300, L501.5200, L100.0100 ####[facility] [address] [place], [address] Lymphocytes/100 WBC (Bld) 5.8 % Low 19-41 [facility] Comment on above: Performed By: #### L 501.2300, L501.5200, L100.0100 ####[facility] [address] [place], [address] MCH (RBC) [Entitic mass] 31.8 pg Normal 27.0-32.0 [facility] Comment on above: Performed By: #### L 501.2300, L501.5200, L100.0100 ####[facility] [address] [place], [address] MCHC (RBC) [Mass/Vol] 31.8 g/dL Low 32-36 [facility] Comment on above: Performed By: #### L 501.2300, L501.5200, L100.0100 ####[facility] [address] [place], [address] MCV (RBC) [Entitic vol] 100.0 fL High 81-99 [facility] Comment on above: Performed By: #### L 501.2300, L501.5200, L100.0100 ####[facility] [address] [place], [address] Monocytes/100 WBC (Bld) 9.5 % Normal 0-10 [facility] Comment on above: Performed By: #### L 501.2300, L501.5200, L100.0100 ####[facility] [address] [place], [address] Neutrophils/100 WBC (Bld) 83.7 % High 47-70 [facility] Comment on above: Performed By: #### L 501.2300, L501.5200, L100.0100 ####[facility] [address] [place], [address] Nucleated RBC (Bld) [#/Vol] 0.5 10*3/uL Normal 0-5 [facility] Comment on above: Performed By: #### L 501.2300, L501.5200, L100.0100 ####[facility] [address] [place], [address] Platelet mean volume (Bld) [Entitic vol] 12.2 fL High 6.2-12.0 [facility] Comment on above: Performed By: #### L 501.2300, L501.5200, L100.0100 ####[facility] [address] [place], [address] Platelets (Bld) [#/Vol] 266 10*3/uL Normal 150-450 [facility] Comment on above: Performed By: #### L 501.2300, L501.5200, L100.0100 ####[facility] [address] [place], [address] RBC (Bld) [#/Vol] 2.74 10*6/uL Low 4.2-5.4 [facility] Comment on above: Performed By: #### L 501.2300, L501.5200, L100.0100 ####[facility] [address] [place], [address] RDW SD 59.3 fl High 35.1-43.9 [facility] Comment on above: Performed By: #### L 501.2300, L501.5200, L100.0100 ####[facility] [address] [place], [address] WBC (Bld) [#/Vol] 13.7 10*3/uL High 4.4-11.0 [facility] Comment on above: Performed By: #### L 501.2300, L501.5200, L100.0100 ####[facility] [address] [place], [address] CNPNon 05-02-2024 CNPN Telephone ([place]) JOHNMARI ([id number]) 1940 F Date Time Provider Department 05/02/24 [facility] During your visit today, we recorded the following information about you: Olga Dillard RN 05/02/2024 9:25 AM Signed Friend (Alex) calls to let provider's office know that patient is currently at [facility] in the ICU for sepsis and kidney [...] 24 hr tablet Take by mouth. - Aifzmmjgypb-Szinaggmh-Nap C-Mn (GLUCOSAMINE CHONDROITIN MAXSTR) 500-400 mg cap Take 1 capsule by mouth three times daily. - COMPOUNDED PRESCRIPTION Stair lift - DAILY-LUISITO tablet TAKE 1 TABLET BY MOUTH ONCE DAILY. - meempkm-ketmsbtcf-hxorsfe D3 (CALCIUM 500+D) 500 mg(1,250mg) -200 unit [...] [1003] 05/07/2005 07/12/2021 INJURY TRUNK SITE NEC [[id number]] 01/16/2006 07/01/2007 Anemia in chronic kidney disease [...] acquired [E (more content not included)... Normal [facility] CXR for Line Placementon CXR for Line Placement Normal [facility] Consultation - Nephrologyon 05-02-2024 Consultation - Nephrology Normal [facility] Gram Stainon 05-02-2024 GS Acceptable Specimen? Yes (<25 Epithelial cells per/lpf) Gram Stain 1+ Gram positive cocci 2+ White Blood Cells No Epithelial cells Normal [facility] Comment on above: Performed By: #### M 100.2000, M100.2400 ####[facility] [address] [place], [place], [id number] International normalized rat io (INR) calculationOrdered By: Qian Albrecht on 05-02-2024 International normalized ratio (INR) calculation 1.3 [facility] Magnesiumon 05-02-2024 Magnesium [Mass/Vol] 1.7 mg/dL Normal 1.6-2.6 [facility] Comment on above: Order Comment: FOR B MP SEE 0127:C87 Performed By: #### L 501.2300, L501.5200, L100.0100 ####[facility] [address] [place], [address] Magnesium [Mass/Vol] 2.2 mg/dL Normal 1.6-2.6 [facility] Comment on above: Performed By: #### L 501.2300, L501.5200 ####[facility] [address] [place], [address] No Panel InformationOrdered By: Bernarda Becerril on 05-02-2024 05:44:[address] [facility] [address] Gallardo [facility] Yes [facility] Partial Thromboplast Timeon 05-02-2024 aPTT Coag (Bld) [Time] 39.9 s High 24.1-36.2 [facility] Comment on above: Performed By: #### L 300.3900, L300.4310 ####[facility] [address] [place], [address] aPTT Coag (Bld) [Time] 30.1 s Normal 24.1-36.2 [facility] Comment on above: Performed By: #### L 300.3900, L300.4310 ####[facility] [address] [place], [address] Phosphoruson 05-02-2024 Phosphate [Mass/Vol] 7.9 mg/dL High 2.5-4.9 [facility] Comment on above: Order Comment: FOR B MP SEE 0127:C87 Performed By: #### L 501.2300, L501.5200, L100.0100 ####[facility] [address] [place], [address] Phosphate [Mass/Vol] 9.9 mg/dL Invalid Interpretation Code 2.5-4.9 [facility] Comment on above: Performed By: #### L 501.2300, L501.5200 ####[facility] [address] [place], [address] Procedure Reporton Procedure Report Normal [facility] Prothrombin Time w/INRon INR Coag (PPP) [Relative time] 1.3 {INR} Normal [facility] Comment on above: Performed By: #### L 300.3900, L300.4310 ####[facility] [address] [place], [address] PT Coag (PPP) [Time] 16.1 s High 11.7-14.9 [facility] Comment on above: Performed By: #### L 300.3900, L300.4310 ####[facility] [address] [place], [address] INR Coag (PPP) [Relative time] 1.2 {INR} Normal [facility] Comment on above: Performed By: #### L 300.3900, L300.4310 ####[facility] [address] [place], [address] PT Coag (PPP) [Time] 15.5 s High 11.7-14.9 [facility] Comment on above: Performed By: #### L 300.3900, L300.4310 ####[facility] [address] [place], [address] Prothrombin timeOrdered By: Qina Albrecht on 05-02-2024 Prothrombin time 16.1 SECONDS High 11.7-14.9 [facility] Renal Profileon 05-02-2024 Albumin [Mass/Vol] 1.8 g/dL Low 3.2-5.0 [facility] Comment on above: Performed By: #### L 500.3600 ####[facility] [address] [place], [address] BUN/CRE 19.6 RATIO Normal 10-20 [facility] Comment on above: Performed By: #### L 500.3600 ####[facility] [address] [place], [address] CA,Total 7.1 mg/dL Low 8.5-10.1 [facility] Comment on above: Performed By: #### L 500.3600 ####[facility] [address] [place], [address] Chloride [Moles/Vol] 112 mmol/L High 98-107 [facility] Comment on above: Performed By: #### L 500.3600 ####[facility] [address] [place], [address] CO2 [Moles/Vol] 19.0 mmol/L Low 21.0-32.0 [facility] Comment on above: Performed By: #### L 500.3600 ####[facility] [address] [place], [address] Creatinine [Mass/Vol] 4.91 mg/dL High 0.55-1.02 [facility] Comment on above: Result Comment: The validity of the calculated GFR GFRAA in patients over70 years has not been determined. Clinical correlation isessential. Performed By: #### L 500.3600 ####[facility] [address] [place], [address] ECRCL 10.10 ml/min Normal [facility] Comment on above: Performed By: #### L 500.3600 ####[facility] [address] [place], [address] EST GFR - AA 11 mL/min Low >60 [facility] Comment on above: Result Comment: Afri can British GFR Calc Performed By: #### L 500.3600 ####[facility] [address] [place], [address] GFR/1.73 sq M.predicted among non-blacks MDRD (S/P/Bld) [Vol rate/Area] 9 mL/min/{1.73_m2} Low >60 [facility] Comment on above: Result Comment: Non- GFR Calc Performed By: #### L 500.3600 ####[facility] [address] [place], [address] Glucose [Mass/Vol] 126 mg/dL High 74-106 [facility] Comment on above: Result Comment: Fast ing Glucose result greater than or equal to 126 mg/dLsuggests DIABETES MELLITUS per A.D.A. criteria. Performed By: #### L 500.3600 ####[facility] [address] [place], [address] Phosphate [Mass/Vol] 4.5 mg/dL Normal 2.5-4.9 [facility] Comment on above: Performed By: #### L 500.3600 ####[facility] [address] [place], [address] Potassium [Moles/Vol] 3.4 mmol/L Low 3.5-5.1 [facility] Comment on above: Performed By: #### L 500.3600 ####[facility] [address] [place], [address] Sodium [Moles/Vol] 142 mmol/L Normal 136-145 [facility] Comment on above: Performed By: #### L 500.3600 ####[facility] [address] [place], [address] Urea nitrogen [Mass/Vol] 96 mg/dL High 7-18 [facility] Comment on above: Performed By: #### L 500.3600 ####[facility] [address] [place], [address] Albumin [Mass/Vol] 1.9 g/dL Low 3.2-5.0 [facility] Comment on above: Performed By: #### L 500.3600 ####[facility] [address] [place], [address] BUN/CRE 18.5 RATIO Normal 10-20 [facility] Comment on above: Performed By: #### L 500.3600 ####[facility] [address] [place], [address] CA,Total 7.0 mg/dL Low 8.5-10.1 [facility] Comment on above: Performed By: #### L 500.3600 ####[facility] [address] [place], [address] Chloride [Moles/Vol] 113 mmol/L High 98-107 [facility] Comment on above: Performed By: #### L 500.3600 ####[facility] [address] [place], [address] CO2 [Moles/Vol] 18.0 mmol/L Low 21.0-32.0 [facility] Comment on above: Performed By: #### L 500.3600 ####[facility] [address] [place], [address] Creatinine [Mass/Vol] 5.68 mg/dL High 0.55-1.02 [facility] Comment on above: Result Comment: The validity of the calculated GFR GFRAA in patients over70 years has not been determined. Clinical correlation isessential. Performed By: #### L 500.3600 ####[facility] [address] [place], [address] ECRCL 8.73 ml/min Normal [facility] Comment on above: Performed By: #### L 500.3600 ####[facility] [address] [place], [address] EST GFR - AA 9 mL/min Low >60 [facility] Comment on above: Result Comment: Afri can British GFR Calc Performed By: #### L 500.3600 ####[facility] [address] [place], [address] GFR/1.73 sq M.predicted among non-blacks MDRD (S/P/Bld) [Vol rate/Area] 8 mL/min/{1.73_m2} Low >60 [facility] Comment on above: Result Comment: Non- GFR Calc Performed By: #### L 500.3600 ####[facility] [address] [place], [address] Glucose [Mass/Vol] 153 mg/dL High 74-106 [facility] Comment on above: Result Comment: Fast ing Glucose result greater than or equal to 126 mg/dLsuggests DIABETES MELLITUS per A.D.A. criteria. Performed By: #### L 500.3600 ####[facility] [address] [place], [address] Phosphate [Mass/Vol] 5.1 mg/dL High 2.5-4.9 [facility] Comment on above: Performed By: #### L 500.3600 ####[facility] [address] [place], [address] Potassium [Moles/Vol] 3.6 mmol/L Normal 3.5-5.1 [facility] Comment on above: Performed By: #### L 500.3600 ####[facility] [address] [place], [address] Sodium [Moles/Vol] 142 mmol/L Normal 136-145 [facility] Comment on above: Performed By: #### L 500.3600 ####[facility] [address] [place], [address] Urea nitrogen [Mass/Vol] 105 mg/dL Invalid Interpretation Code 7-18 [facility] Comment on above: Result Comment: Crit ical Result(s) Called at: 15:14:16 05/02/2024 by: Maye Johnson RN (ICU). Results read back by same. Performed By: #### L 500.3600 ####[facility] [address] [place], [address] Albumin [Mass/Vol] 2.3 g/dL Low 3.2-5.0 [facility] Comment on above: Performed By: #### L 500.3600 ####[facility] [address] [place], [address] BUN/CRE 19.4 RATIO Normal 10-20 [facility] Comment on above: Performed By: #### L 500.3600 ####[facility] [address] [place], [address] CA,Total 7.3 mg/dL Low 8.5-10.1 [facility] Comment on above: Performed By: #### L 500.3600 ####[facility] [address] [place], [address] Chloride [Moles/Vol] 118 mmol/L High 98-107 [facility] Comment on above: Performed By: #### L 500.3600 ####[facility] [address] [place], [address] CO2 [Moles/Vol] 8.0 mmol/L Invalid Interpretation Code 21.0-32.0 [facility] Comment on above: Result Comment: Crit ical Result(s) Called at: 04:31:10 05/02/2024 by:DEEJAY SOLIMAN TO KEVIN MARIA. Results read back by same. Performed By: #### L 500.3600 ####[facility] [address] [place], [address] Creatinine [Mass/Vol] 7.23 mg/dL High 0.55-1.02 [facility] Comment on above: Result Comment: The validity of the calculated GFR GFRAA in patients over70 years has not been determined. Clinical correlation isessential. Performed By: #### L 500.3600 ####[facility] [address] [place], [address] ECRCL 6.75 ml/min Normal [facility] Comment on above: Performed By: #### L 500.3600 ####[facility] [address] [place], [address] EST GFR - AA 7 mL/min Low >60 [facility] Comment on above: Result Comment: Afri can British GFR Calc Performed By: #### L 500.3600 ####[facility] [address] [place], [address] GFR/1.73 sq M.predicted among non-blacks MDRD (S/P/Bld) [Vol rate/Area] 6 mL/min/{1.73_m2} Low >60 [facility] Comment on above: Result Comment: Non- GFR Calc Performed By: #### L 500.3600 ####[facility] [address] [place], [address] Glucose [Mass/Vol] 191 mg/dL High 74-106 [facility] Comment on above: Result Comment: Fast ing Glucose result greater than or equal to 126 mg/dLsuggests DIABETES MELLITUS per A.D.A. criteria. Performed By: #### L 500.3600 ####[facility] [address] [place], [address] Phosphate [Mass/Vol] 8.1 mg/dL High 2.5-4.9 [facility] Comment on above: Performed By: #### L 500.3600 ####[facility] [address] [place], [address] Potassium [Moles/Vol] 4.0 mmol/L Normal 3.5-5.1 [facility] Comment on above: Performed By: #### L 500.3600 ####[facility] [address] [place], [address] Sodium [Moles/Vol] 145 mmol/L Normal 136-145 [facility] Comment on above: Performed By: #### L 500.3600 ####[facility] [address] [place], [place], [address] Urea nitrogen [Mass/Vol] 140 mg/dL Invalid Interpretation Code 10-21 [facility] Comment on above: Result Comment: Crit ical Result(s) Called at: 04:31:41 05/02/2024 by:DEEJAY SOLIMAN TO KEVIN MARIA. Results read back by same. Performed By: #### L 500.3600 ####[facility] [address] [place], [address] Thyroid Stim Hormone (TSH)on 05-02-2024 TSH 7.150 uIU/mL High 0.358-3.74 0 [facility] Comment on above: Performed By: #### L 501.9520 ####[facility] [address] [place], [address] Venous Blood Gason HCO3 (Bld) [Moles/Vol] 4 mmol/L Low [facility] Comment on above: Performed By: #### L 9000.0810 ####[facility] [address] [place], [address] aPTT Coag (PPP) [Time]Ordere d By: Qian Albrecht on 05-02-2024 Activated partial thromboplastin time (aPTT) in platelet poor plasma by coagulation a 39.9 Seconds High 24.1-36.2 [facility] 12 Lead EKGon 05-01-2024 12 Lead EKG Normal [facility] ALP [Catalytic activity/Vol] Ordered By: Alexis Friend on 05-01-2024 Serum or plasma alkaline phosphatase measurement 97 U/L 45-117 [facility] ALT [Catalytic activity/Vol] Ordered By: Alexis Friend on 05-01-2024 Serum or plasma alanine aminotransferase (ALT) measurement 18 U/L 13-56 [facility] Albumin to globulin ratioOrd ered By: Alexis Friend on 05-01-2024 Albumin to globulin ratio 0.8 RATIO Low 0.9-2.4 [facility] Bacteria LM.HPF (Urine sed) [#/Area]Ordered By: Alexis Friend on 05-01-2024 Urine sediment bacteria count by microscopy (number/high power field) 3+ /hpf None Seen [facility] Base excess Calc (BldV) [Mol es/Vol]Ordered By: Alexis Friend on 05-01-2024 Venous blood base excess measurement -27 mmol/L Low -1.0-3.5 [facility] Basic Metabolic Profile (BMP )on 05-01-2024 BUN/CRE 19.3 RATIO Normal 10-20 [facility] Comment on above: Performed By: #### L 500.2500 ####[facility] [address] [place], [address] CA,Total 7.5 mg/dL Low 8.5-10.1 [facility] Comment on above: Performed By: #### L 500.2500 ####[facility] [address] [place], [address] Chloride [Moles/Vol] 122 mmol/L High 98-107 [facility] Comment on above: Performed By: #### L 500.2500 ####[facility] [address] [place], [address] CO2 [Moles/Vol] 6.0 mmol/L Invalid Interpretation Code 21.0-32.0 [facility] Comment on above: Result Comment: Crit ical Result(s) Called at: 22:02:26 05/01/2024 by: CARLITOS. Results read back by Oumou PATRICK Performed By: #### L 500.2500 ####[facility] [address] [place], [address] Creatinine [Mass/Vol] 7.48 mg/dL Invalid Interpretation Code 0.55-1.02 [facility] Comment on above: Result Comment: Crit ical Result(s) Called at: 22:03:07 05/01/2024 by: CARLITOS. Results read back by EDNAThe validity of the calculated GFR GFRAA in patients over70 years has not been determined. Clinical correlation isessential. Performed By: #### L 500.2500 ####[facility] [address] [place], [address] ECRCL 6.52 ml/min Normal [facility] Comment on above: Performed By: #### L 500.2500 ####[facility] [address] [place], [address] EST GFR - AA 7 mL/min Low >60 [facility] Comment on above: Result Comment: Afri can British GFR Calc Performed By: #### L 500.2500 ####[facility] [address] [place], [address] GAP 15 Normal 5-15 [facility] Comment on above: Performed By: #### L 500.2500 ####[facility] [address] [place], [address] GFR/1.73 sq M.predicted among non-blacks MDRD (S/P/Bld) [Vol rate/Area] 6 mL/min/{1.73_m2} Low >60 [facility] Comment on above: Result Comment: Non- GFR Calc Performed By: #### L 500.2500 ####[facility] [address] [place], [address] Glucose [Mass/Vol] 144 mg/dL High 74-106 [facility] Comment on above: Result Comment: Fast ing Glucose result greater than or equal to 126 mg/dLsuggests DIABETES MELLITUS per A.D.A. criteria. Performed By: #### L 500.2500 ####[facility] [address] [place], [address] Potassium [Moles/Vol] 5.1 mmol/L Normal 3.5-5.1 [facility] Comment on above: Performed By: #### L 500.2500 ####[facility] [address] [place], [address] Sodium [Moles/Vol] 143 mmol/L Normal 136-145 [facility] Comment on above: Performed By: #### L 500.2500 ####[facility] [address] [place], [address] Urea nitrogen [Mass/Vol] 144 mg/dL Invalid Interpretation Code 7-18 [facility] Comment on above: Result Comment: Crit ical Result(s) Called at: 22:02:51 05/01/2024 by: CARLITOS. Results read back by Oumou PATRICK Performed By: #### L 500.2500 ####[facility] [address] [place], [address] BUN/CRE 20.2 RATIO High 10-20 [facility] Comment on above: Performed By: #### L 500.2500 ####[facility] [address] [place], [address] CA,Total 7.7 mg/dL Low 8.5-10.1 [facility] Comment on above: Performed By: #### L 500.2500 ####[facility] [address] [place], [address] Chloride [Moles/Vol] 124 mmol/L High 98-107 [facility] Comment on above: Performed By: #### L 500.2500 ####[facility] [address] [place], [address] CO2 [Moles/Vol] 5.0 mmol/L Invalid Interpretation Code 21.0-32.0 [facility] Comment on above: Result Comment: Crit ical Result(s) Called at: 16:28:22 05/01/2024 by: CARLITOS. Results read back by Ilana Alarcon Performed By: #### L 500.2500 ####[facility] [address] [place], [address] Creatinine [Mass/Vol] 7.33 mg/dL High 0.55-1.02 [facility] Comment on above: Result Comment: The validity of the calculated GFR GFRAA in patients over70 years has not been determined. Clinical correlation isessential. Performed By: #### L 500.2500 ####[facility] [address] [place], [address] ECRCL 6.59 ml/min Normal [facility] Comment on above: Performed By: #### L 500.2500 ####[facility] [address] [place], [address] EST GFR - AA 7 mL/min Low >60 [facility] Comment on above: Result Comment: Afri can British GFR Calc Performed By: #### L 500.2500 ####[facility] [address] [place], [address] GAP 15 Normal 5-15 [facility] Comment on above: Performed By: #### L 500.2500 ####[facility] [address] [place], [address] GFR/1.73 sq M.predicted among non-blacks MDRD (S/P/Bld) [Vol rate/Area] 6 mL/min/{1.73_m2} Low >60 [facility] Comment on above: Result Comment: Non- GFR Calc Performed By: #### L 500.2500 ####[facility] [address] [place], [address] Glucose [Mass/Vol] 82 mg/dL Normal 74-106 [facility] Comment on above: Performed By: #### L 500.2500 ####[facility] [address] [place], [address] Potassium [Moles/Vol] 5.4 mmol/L High 3.5-5.1 [facility] Comment on above: Performed By: #### L 500.2500 ####[facility] [address] [place], [address] Sodium [Moles/Vol] 144 mmol/L Normal 136-145 [facility] Comment on above: Performed By: #### L 500.2500 ####[facility] [address] [place], [address] Urea nitrogen [Mass/Vol] 148 mg/dL Invalid Interpretation Code 7-18 [facility] Comment on above: Result Comment: Crit ical Result(s) Called at: 16:28:46 05/01/2024 by: CARLITOS. Results read back by Ilana Alarcon Performed By: #### L 500.2500 ####[facility] [address] [place], [address] Bilirubin Test strip Ql (U)O rdered By: Alexis Friend on 05-01-2024 Urine total bilirubin detection by test strip 1 mg/dL High Negative [facility] Bilirubin, totalOrdered By: Alexis Friend on 05-01-2024 Bilirubin, total 0.30 mg/dL 0.20-1.00 [facility] Blood Gases by CPSon 025 ALMA DELIA TEST N/A Normal [facility] Comment on above: Performed By: #### L 9000.0800 ####[facility] [address] [place], [address] Base excess Calc (Bld) [Moles/Vol] -26 mmol/L Low -2 to +2 [facility] Comment on above: Performed By: #### L 9000.0800 ####[facility] [address] [place], [address] Blood Gas Type ART Normal [facility] Comment on above: Performed By: #### L 9000.0800 ####[facility] [address] [place], [address] FI02 30.0 Normal [facility] Comment on above: Performed By: #### L 9000.0800 ####[facility] [address] [place], [address] HCO3 (Bld) [Moles/Vol] 4.0 mmol/L Low 22-26 [facility] Comment on above: Performed By: #### L 9000.0800 ####[facility] [address] [place], [address] Mode AC/PC Normal [facility] Comment on above: Performed By: #### L 9000.0800 ####[facility] [address] [place], [address] O2 Delivery Dev Adult Vent Normal [facility] Comment on above: Performed By: #### L 9000.0800 ####[facility] [address] [place], [address] pCO2 12.9 mmHg Invalid Interpretation Code 35-45 [facility] Comment on above: Performed By: #### L 9000.0800 ####[facility] [address] [place], [address] PEEP 5 Normal [facility] Comment on above: Performed By: #### L 9000.0800 ####[facility] [address] [place], [address] pH (Bld) 7.10 [pH] Invalid Interpretation Code 7.35-7.45 [facility] Comment on above: Performed By: #### L 9000.0800 ####[facility] [address] [place], [address] PO2 144 mmHG High 75-100 [facility] Comment on above: Performed By: #### L 9000.0800 ####[facility] [address] [place], [address] Read Back By Yes [facility] Comment on above: Performed By: #### L 9000.0800 ####[facility] [address] [place], [address] Gallardo [facility] Comment on above: Performed By: #### L 9000.0800 ####[facility] [address] [place], [address] [address] [facility] Comment on above: Performed By: #### L 9000.0800 ####[facility] [address] [place], [address] SITE L Radial [facility] Comment on above: Performed By: #### L 9000.0800 ####[facility] [address] [place], [address] SO2 98 Normal 95-99 [facility] Comment on above: Performed By: #### L 9000.0800 ####[facility] [address] [place], [address] Time Given 22:51:06 [facility] Comment on above: Performed By: #### L 9000.0800 ####[facility] [address] [place], [address] TOTAL CO2 < 5 [facility] Comment on above: Performed By: #### L 9000.0800 ####[facility] [address] [place], [address] ALMA DELIA TEST N/A [facility] Comment on above: Performed By: #### L 9000.0800 ####[facility] [address] [place], [address] Base excess Calc (Bld) [Moles/Vol] -29 mmol/L Low -2 to +2 [facility] Comment on above: Performed By: #### L 9000.0800 ####[facility] [address] [place], [address] Blood Gas Type ART Normal [facility] Comment on above: Performed By: #### L 8999.0800 ####[facility] [address] [place], [address] CO2 [Moles/Vol] 5 mmol/L Normal [facility] Comment on above: Performed By: #### L 8999.0800 ####[facility] [address] [place], [address] Comment AC VC 14 450 +5 45% Normal [facility] Comment on above: Performed By: #### L 0.0800 ####[facility] [address] [place], [address] FI02 45.0 Normal [facility] Comment on above: Performed By: #### L 8999.0800 ####[facility] [address] [place], [address] HCO3 (Bld) [Moles/Vol] 4.4 mmol/L Low 22-26 [facility] Comment on above: Performed By: #### L 8999.0800 ####[facility] [address] [place], [address] Mode AC Normal [facility] Comment on above: Performed By: #### L 0.0800 ####[facility] [address] [place], [address] O2 Delivery Dev Adult Vent Normal [facility] Comment on above: Performed By: #### L 8999.0800 ####[facility] [address] [place], [address] pCO2 22.2 mmHg Low 35-45 [facility] Comment on above: Performed By: #### L 8999.0800 ####[facility] [address] [place], [address] pH (Bld) 6.90 [pH] Invalid Interpretation Code 7.35-7.45 [facility] Comment on above: Performed By: #### L 9000.0800 ####[facility] [address] [place], [address] PO2 172 mmHG High 75-100 [facility] Comment on above: Performed By: #### L 9000.0800 ####[facility] [address] [place], [address] Read Back By Yes Normal [facility] Comment on above: Performed By: #### L 9000.0800 ####[facility] [address] [place], [address] SITE R Brach Normal [facility] Comment on above: Performed By: #### L 9000.0800 ####[facility] [address] [place], [address] SO2 98 Normal 95-99 [facility] Comment on above: Performed By: #### L 9000.0800 ####[facility] [address] [place], [address] Blood cultureOrdered By: Alexis Friend on 05-01-2024 Blood culture No growth in 5 days. [facility] Blood culture No growth in 5 days. [facility] CBC W/Diff, Automatedon 04-07 Absolute Lymph 1.26 X10 3/uL Normal 0.83-4.51 [facility] Comment on above: Performed By: #### M 200.1000, L500.4050, L503.6005, L100.0100, L300.3900 ####[facility] [address] [place], [address] Absolute Neut 14.2 X10 3/uL High 2.0-7.7 [facility] Comment on above: Performed By: #### M 200.1000, L500.4050, L503.6005, L100.0100, L300.3900 ####[facility] [address] [place], [address] Basophils/100 WBC (Bld) 0.3 % Normal 0-1 [facility] Comment on above: Performed By: #### M 200.1000, L500.4050, L503.6005, L100.0100, L300.3900 ####[facility] [address] [place], [address] Eosinophils/100 WBC (Bld) 0.4 % Normal 0-5 [facility] Comment on above: Performed By: #### M 200.1000, L500.4050, L503.6005, L100.0100, L300.3900 ####[facility] [address] [place], [address] Erythrocyte distribution width (RBC) [Ratio] 16.6 % High 11.6-14.6 [facility] Comment on above: Performed By: #### M 200.1000, L500.4050, L503.6005, L100.0100, L300.3900 ####[facility] [address] [place], [address] Hematocrit (Bld) [Volume fraction] 30.5 % Low 37-47 [facility] Comment on above: Performed By: #### M 200.1000, L500.4050, L503.6005, L100.0100, L300.3900 ####[facility] [address] [place], [address] Hemoglobin (Bld) [Mass/Vol] 9.7 g/dL Low 12.0-15.0 [facility] Comment on above: Performed By: #### M 200.1000, L500.4050, L503.6005, L100.0100, L300.3900 ####[facility] [address] [place], [address] IG% 1.100 High 0.0-0.9 [facility] Comment on above: Result Comment: IG% - Immature Granulocytes (promyelocytes, myelocytes andmetamyelocytes) > 1% indicates that a LEFT SHIFT is Present. Performed By: #### M 200.1000, L500.4050, L503.6005, L100.0100, L300.3900 ####[facility] [address] [place], [address] Lymphocytes/100 WBC (Bld) 7.4 % Low 19-41 [facility] Comment on above: Performed By: #### M 200.1000, L500.4050, L503.6005, L100.0100, L300.3900 ####[facility] [address] [place], [address] MCH (RBC) [Entitic mass] 32.3 pg High 27.0-32.0 [facility] Comment on above: Performed By: #### M 200.1000, L500.4050, L503.6005, L100.0100, L300.3900 ####[facility] [address] [place], [address] MCHC (RBC) [Mass/Vol] 31.8 g/dL Low 32-36 [facility] Comment on above: Performed By: #### M 200.1000, L500.4050, L503.6005, L100.0100, L300.3900 ####[facility] [address] [place], [address] MCV (RBC) [Entitic vol] 101.7 fL High 81-99 [facility] Comment on above: Performed By: #### M 200.1000, L500.4050, L503.6005, L100.0100, L300.3900 ####[facility] [address] [place], [address] Monocytes/100 WBC (Bld) 7.5 % Normal 0-10 [facility] Comment on above: Performed By: #### M 200.1000, L500.4050, L503.6005, L100.0100, L300.3900 ####[facility] [address] [place], [address] Neutrophils/100 WBC (Bld) 83.3 % High 47-70 [facility] Comment on above: Performed By: #### M 200.1000, L500.4050, L503.6005, L100.0100, L300.3900 ####[facility] [address] [place], [address] Nucleated RBC (Bld) [#/Vol] 0.4 10*3/uL Normal 0-5 [facility] Comment on above: Performed By: #### M 200.1000, L500.4050, L503.6005, L100.0100, L300.3900 ####[facility] [address] [place], [address] Platelet mean volume (Bld) [Entitic vol] 12.8 fL High 6.2-12.0 [facility] Comment on above: Performed By: #### M 200.1000, L500.4050, L503.6005, L100.0100, L300.3900 ####[facility] [address] [place], [address] Platelets (Bld) [#/Vol] 286 10*3/uL Normal 150-450 [facility] Comment on above: Performed By: #### M 200.1000, L500.4050, L503.6005, L100.0100, L300.3900 ####[facility] [address] [place], [address] RBC (Bld) [#/Vol] 3.00 10*6/uL Low 4.2-5.4 [facility] Comment on above: Performed By: #### M 200.1000, L500.4050, L503.6005, L100.0100, L300.3900 ####[facility] [address] [place], [address] RDW SD 61.4 fl High 35.1-43.9 [facility] Comment on above: Performed By: #### M 200.1000, L500.4050, L503.6005, L100.0100, L300.3900 ####[facility] [address] [place], [address] WBC (Bld) [#/Vol] 17.0 10*3/uL High 4.4-11.0 [facility] Comment on above: Performed By: #### M 200.1000, L500.4050, L503.6005, L100.0100, L300.3900 ####[facility] [address] [place], [address] CDIFF (PCR)on 05-01-2024 CDIFF Is the patient recei ving laxatives? N Pending 027 027 NAP1-B1 Presumptive Negative *for epidemiolologic???use C. Diff PCR Negative- No toxigenic C. Diff Detected Normal [facility] Comment on above: Performed By: #### M 100.6796 ####[facility] [address] [place], [address] CO2 (BldV) [Moles/Vol]Ordere d By: Alexis Friend on 05-01-2024 Venous blood total carbon dioxide measurement < 5 mmol/L Low 23-33 [facility] CO2 (BldV) [Partial pressure ]Ordered By: Alexis Friend on 05-01-2024 Venous blood partial pressure of carbon dioxide measurement 14.1 mmHg Low 41-51 [facility] CPK Total, Creatine Kinaseon 05-01-2024 CPK TOTAL 487 U/L High 26-192 [facility] Comment on above: Order Comment: Comme nts: DC when propofol is d/c'dDC when propofol is d/c'd Performed By: #### L 501.5000, L501.3620 ####[facility] [address] [place], [address] Chest 1 View (Portable)on Chest 1 View (Portable) Normal [facility] Chest 1 View (Portable) Normal [facility] Clarity (U)Ordered By: Alexis G allo on 05-01-2024 Urine clarity Cloudy Clear [facility] Color (U)Ordered By: Alexis Gal lo on 05-01-2024 Urine color determination Yellow Yellow [facility] Comprehensive Metabolic Prof ilon 05-01-2024 Albumin [Mass/Vol] 2.8 g/dL Low 3.2-5.0 [facility] Comment on above: Order Comment: Blood cultures x2, from two different sites Performed By: #### M 200.1000, L500.4050, L503.6005, L100.0100, L300.3900 ####[facility] [address] [place], [address] Albumin/Globulin [Mass ratio] 0.8 {ratio} Low 0.9-2.4 [facility] Comment on above: Order Comment: Blood cultures x2, from two different sites Performed By: #### M 200.1000, L500.4050, L503.6005, L100.0100, L300.3900 ####[facility] [address] [place], [address] ALK P 97 U/L Normal 45-117 [facility] Comment on above: Order Comment: Blood cultures x2, from two different sites Performed By: #### M 200.1000, L500.4050, L503.6005, L100.0100, L300.3900 ####[facility] [address] [place], [address] ALT [Catalytic activity/Vol] 18 U/L Normal 13-56 [facility] Comment on above: Order Comment: Blood cultures x2, from two different sites Performed By: #### M 200.1000, L500.4050, L503.6005, L100.0100, L300.3900 ####[facility] [address] [place], [address] AST [Catalytic activity/Vol] 22 U/L Normal 15-37 [facility] Comment on above: Order Comment: Blood cultures x2, from two different sites Performed By: #### M 200.1000, L500.4050, L503.6005, L100.0100, L300.3900 ####[facility] [address] [place], [address] Bilirubin [Mass/Vol] 0.30 mg/dL Normal 0.20-1.00 [facility] Comment on above: Order Comment: Blood cultures x2, from two different sites Result Comment: For patients on eltrombopag therapy, use of Dimension [place] TBIL is not recommended. Performed By: #### M 200.1000, L500.4050, L503.6005, L100.0100, L300.3900 ####[facility] [address] [place], [address] BUN/CRE 19.9 RATIO Normal 10-20 [facility] Comment on above: Order Comment: Blood cultures x2, from two different sites Performed By: #### M 200.1000, L500.4050, L503.6005, L100.0100, L300.3900 ####[facility] [address] [place], [address] CA,Total 8.4 mg/dL Low 8.5-10.1 [facility] Comment on above: Order Comment: Blood cultures x2, from two different sites Performed By: #### M 200.1000, L500.4050, L503.6005, L100.0100, L300.3900 ####[facility] [address] [place], [address] Chloride [Moles/Vol] 121 mmol/L High 98-107 [facility] Comment on above: Order Comment: Blood cultures x2, from two different sites Performed By: #### M 200.1000, L500.4050, L503.6005, L100.0100, L300.3900 ####[facility] [address] [place], [address] CO2 [Moles/Vol] 4.0 mmol/L Invalid Interpretation Code 21.0-32.0 [facility] Comment on above: Order Comment: Blood cultures x2, from two different sites Result Comment: Crit ical Result(s) Called at: 13:35:09 05/01/2024 by: Maye to (ER). Results read back by same. Performed By: #### M 200.1000, L500.4050, L503.6005, L100.0100, L300.3900 ####[facility] [address] [place], [address] Creatinine [Mass/Vol] 7.93 mg/dL Invalid Interpretation Code 0.55-1.02 [facility] Comment on above: Order Comment: Blood cultures x2, from two different sites Result Comment: Crit ical Result(s) Called at: 13:35:09 05/01/2024 by: Maye to (ER). Results read back by same.The validity of the calculated GFR GFRAA in patients over70 years has not been determined. Clinical correlation isessential. Performed By: #### M 200.1000, L500.4050, L503.6005, L100.0100, L300.3900 ####[facility] [address] [place], [address] EST GFR - AA 6 mL/min Low >60 [facility] Comment on above: Order Comment: Blood cultures x2, from two different sites Result Comment: Afri can British GFR Calc Performed By: #### M 200.1000, L500.4050, L503.6005, L100.0100, L300.3900 ####[facility] [address] [place], [address] GAP 18 High 5-15 [facility] Comment on above: Order Comment: Blood cultures x2, from two different sites Performed By: #### M 200.1000, L500.4050, L503.6005, L100.0100, L300.3900 ####[facility] [address] [place], [address] GFR/1.73 sq M.predicted among non-blacks MDRD (S/P/Bld) [Vol rate/Area] 5 mL/min/{1.73_m2} Low >60 [facility] Comment on above: Order Comment: Blood cultures x2, from two different sites Result Comment: Non- GFR Calc Performed By: #### M 200.1000, L500.4050, L503.6005, L100.0100, L300.3900 ####[facility] [address] [place], [address] Globulin (S) [Mass/Vol] 3.7 g/dL Normal 2.2-4.2 [facility] Comment on above: Order Comment: Blood cultures x2, from two different sites Performed By: #### M 200.1000, L500.4050, L503.6005, L100.0100, L300.3900 ####[facility] [address] [place], [address] Glucose [Mass/Vol] 69 mg/dL Low 74-106 [facility] Comment on above: Order Comment: Blood cultures x2, from two different sites Performed By: #### M 200.1000, L500.4050, L503.6005, L100.0100, L300.3900 ####[facility] [address] [place], [address] Potassium [Moles/Vol] 6.1 mmol/L Invalid Interpretation Code 3.5-5.1 [facility] Comment on above: Order Comment: Blood cultures x2, from two different sites Result Comment: Crit ical Result(s) Called at: 13:35:09 05/01/2024 by: Maye to (ER). Results read back by same. Performed By: #### M 200.1000, L500.4050, L503.6005, L100.0100, L300.3900 ####[facility] [address] [place], [address] Sodium [Moles/Vol] 142 mmol/L Normal 136-145 [facility] Comment on above: Order Comment: Blood cultures x2, from two different sites Performed By: #### M 200.1000, L500.4050, L503.6005, L100.0100, L300.3900 ####[facility] [address] [place], [address] T PROT 6.5 g/dL Normal 6.4-8.2 [facility] Comment on above: Order Comment: Blood cultures x2, from two different sites Performed By: #### M 200.1000, L500.4050, L503.6005, L100.0100, L300.3900 ####[facility] [address] [place], [address] Urea nitrogen [Mass/Vol] 158 mg/dL Invalid Interpretation Code 7-18 [facility] Comment on above: Order Comment: Blood cultures x2, from two different sites Result Comment: Crit ical Result(s) Called at: 13:35:09 05/01/2024 by: Maye Reddy (ER). Results read back by same. Performed By: #### M 200.1000, L500.4050, L503.6005, L100.0100, L300.3900 ####[facility] [address] [place], [address] Consultation - Intensiviston 05-01-2024 Consultation - Electrical Engineering Intern Normal [facility] Emergency Department Summary on 05-01-2024 Emergency Department Summary Normal [facility] Epithelial cells.renal LM.HP F (Urine sed) [#/Area]Ordered By: Alexis Friend on 05-01-2024 Urine sediment renal epithelial cell count by microscopy (number/high power field) 25-50 SEEN /hpf 0-5 [facility] H AND P Exam - Hospitaliston 05-01-2024 H&P Exam - Hospitalist Normal [facility] Ketones Test strip Ql (U)Ord ered By: Alexis Friend on 05-01-2024 Urine ketones detection by test strip 5 mg/dl High Negative [facility] Lactic Acidon 05-01-2024 Lactate [Moles/Vol] 0.8 mmol/L Normal 0.4-1.9 [facility] Comment on above: Order Comment: Y Performed By: #### M 200.1000, L500.4050, L503.6005, L100.0100, L300.3900 ####[facility] [address] [place], [place], [id number] Lactic acid measurementOrder ed By: Alexis Friend on 05-01-2024 Lactic acid measurement 0.8 mmol/L 0.4-2.0 [facility] Legionella Antigen Urineon 0 05-01-2024 LEGU Normal [facility] Comment on above: Performed By: #### M 300.4500, M300.4600 ####[facility] [address] [place], [place], [id number] Leukocyte esterase Test stri p Ql (U)Ordered By: Alexis Friend on 05-01-2024 Urine leukocyte esterase detection by dipstick 500 /ul High Negative [facility] M100.678on 05-01-2024 M100.678 Pending SARS-CoV-2 (COVID 19) Negative INFLUENZA A Negative INFLUENZA B Negative RSV PCR Negative Normal [facility] Comment on above: Performed By: #### M 100.678 ####[facility] [address] [place], [address] Microorganism identified Cx Nom (Unsp spec)Ordered By: Bernarda Becerril on 05-01-2024 Microbial respiratory culture or Staphylococcus aureus isolated. [facility] Microscopic analysis of urin e for red blood cells (RBC)Ordered By: Alexis Friend on 05-01-2024 Microscopic analysis of urine for red blood cells (RBC) 5-10 SEEN /hpf 5-10 [facility] Mucus LM Ql (Urine sed)Order ed By: Alexis Friend on 05-01-2024 Mucus detection in urine sediment by light microscopy 0 SEEN /hpf [facility] Nitrite Test strip Ql (U)Ord ered By: Alexis Friend on 05-01-2024 Urine nitrite test by dipstick Negative Negative [facility] No Panel InformationOrdered By: Bernarda Becerril on 05-01-2024 AC VC 14 450 +5 45% [facility] No Panel InformationOrdered By: Alexis Friend on 05-01-2024 22 U/L 15-37 [facility] Oxygen (BldV) [Partial press ure]Ordered By: Alexis Friend on 05-01-2024 Venous blood partial pressure of oxygen measurement 199 mmHg High 25-40 [facility] Partial Thromboplast Timeon 05-01-2024 aPTT Coag (Bld) [Time] 31.2 s Normal 24.1-36.2 [facility] Comment on above: Order Comment: REDRA W. PREVIOUS SPECIMEN REJECTED DUE TOSPECIMEN BEING HEMOLYZED. 05/01/24 1328 Pratik Lee. Performed By: #### L 300.4310, L300.3900 ####[facility] [address] [facility] [place] [place], [address] Protein Test strip Ql (U)Ord ered By: Alexis Friend on 05-01-2024 Urine protein assay by test strip, semi-quantitative 100 mg/dl High Negative [facility] Prothrombin Time w/INRon INR Coag (PPP) [Relative time] 1.3 {INR} Normal [facility] Comment on above: Order Comment: REDRA W. PREVIOUS SPECIMEN REJECTED DUE TOSPECIMEN BEING HEMOLYZED. 05/01/24 1328 Pratik Lee. Performed By: #### L 300.4310, L300.3900 ####[facility] [address] [place], [address] PT Coag (PPP) [Time] 16.2 s High 11.7-14.9 [facility] Comment on above: Order Comment: REDRA W. PREVIOUS SPECIMEN REJECTED DUE TOSPECIMEN BEING HEMOLYZED. 05/01/24 1328 Pratik Lee. Performed By: #### L 300.4310, L300.3900 ####[facility] [address] [place], [address] INR Normal [facility] Comment on above: Result Comment: This specimen has been REJECTED due to Laboratory criteria:Hemolyzed.ED STAFF has been notified of need of recollection.05/01/24 1327 Pratik Lee Performed By: #### M 200.1000, L500.4050, L503.6005, L100.0100, L300.3900 ####[facility] [address] [place], [address] PROTIME Normal 11.7-14.9 [facility] Comment on above: Result Comment: This specimen has been REJECTED due to Laboratory criteria:Hemolyzed.ED STAFF has been notified of need of recollection.05/01/24 1327 Pratik Lee Performed By: #### M 200.1000, L500.4050, L503.6005, L100.0100, L300.3900 ####[facility] [address] [place], [address] RESPIRATORY PANEL MOLECULARo n 05-01-2024 RP PANEL Normal [facility] Comment on above: Performed By: #### M 100.638 ####[facility] [address] [place], [address] Serum globulin measurementOr dered By: Alexis Friend on 05-01-2024 Serum globulin measurement 3.7 g/dL 2.2-4.2 [facility] Specific gravity (U) [Rel de nsity]Ordered By: Alexis Friend on 05-01-2024 Urine specific gravity measurement 1.020 1.002-1.03 0 [facility] Strep pneumoniae Antig(UR,CS F)on 05-01-2024 STPAG Normal [facility] Comment on above: Performed By: #### M 300.4500, M300.4600 ####[facility] [address] [place], [place], [id number] Total creatine kinase measur ementOrdered By: Kin Young on 05-01-2024 Total creatine kinase measurement 487 U/L High 26-192 [facility] Total proteinOrdered By: Alexis Friend on 05-01-2024 Total protein 6.5 g/dL 6.4-8.2 [facility] Transitional cells LM Ql (Ur ine sed)Ordered By: Alexis Friend on 05-01-2024 Transitional cells detection in urine sediment by light microscopy 0-5 SEEN /hpf 0-5 [facility] Triglycerideson 05-01-2024 Triglyceride [Mass/Vol] 182 mg/dL Normal [facility] Comment on above: Order Comment: Comme nts: DC when propofol is d/c'dDC when propofol is d/c'd Result Comment: The drugs N-Acetylcysteine and Metamizole may falselydepress this assay.Serum Triglycerides Reference Interval Normal <150 mg/dL Borderline high 150 - 199 mg/dL High 200 - 499 mg/dL Very High > or = 500 mg/dL Performed By: #### L 501.5000, L501.3620 ####[facility] [address] [place], [place], [address] Triglycerides measurementOrd ered By: Kin Young on 05-01-2024 Triglycerides measurement 182 mg/dL <199 [facility] Urinalysis, Completeon 05-01 BACTERIA 3+ /hpf Normal None Seen [facility] Comment on above: Order Comment: SUSAN TER SPECIMEN Performed By: #### M 100.2200, L400.0001 ####[facility] [address] [place], [address] EPI,RENAL 25-50 SEEN Normal 0-5 [facility] Comment on above: Order Comment: SUSAN TER SPECIMEN Performed By: #### M 100.2200, L400.0001 ####[facility] [address] [place], [address] EPI,SQUAMOUS 5-10 SEEN Normal 5-10 [facility] Comment on above: Order Comment: SUSAN TER SPECIMEN Performed By: #### M 100.2200, L400.0001 ####[facility] [address] [place], [address] EPI,TRANSITION 0-5 SEEN Normal 0-5 [facility] Comment on above: Order Comment: SUSAN TER SPECIMEN Performed By: #### M 100.2200, L400.0001 ####[facility] [address] [place], [address] RBC 5-10 SEEN Normal 0-5 [facility] Comment on above: Order Comment: SUSAN TER SPECIMEN Performed By: #### M 100.2200, L400.0001 ####[facility] [address] [place], [address] WBC 50-100 SEEN Normal 0-5 [facility] Comment on above: Order Comment: SUSAN TER SPECIMEN Performed By: #### M 100.2200, L400.0001 ####[facility] [address] [place], [address] Mucus Ql (Urine sed) 0 SEEN Normal [facility] Comment on above: Order Comment: SUSAN TER SPECIMEN Performed By: #### M 100.2200, L400.0001 ####[facility] [address] [place], [address] Urine blood detectionOrdered By: Alexis Friend on 05-01-2024 Urine blood detection 150 /ul High Negative [facility] Urine cultureOrdered By: Alexis Friend on 05-01-2024 Urine culture Escherichia coli Abnormal [facility] Urine glucose detectionOrder ed By: Alexis Friend on 05-01-2024 Urine glucose detection Normal mg/dl Normal [facility] Venous blood bicarbonate duke surementOrdered By: Alexis Friend on 05-01-2024 Venous blood bicarbonate measurement 4 mmol/L Low 22-26 [facility] Venous blood oxygen saturati on measurementOrdered By: Alexis Friend on 05-01-2024 Venous blood oxygen saturation measurement 99 % High 50-70 [facility] White blood cell countOrdere d By: Alexis Friend on 05-01-2024 White blood cell count 50-100 SEEN /hpf 0-5 [facility] pH (BldV)Ordered By: Alexis pardo on 05-01-2024 Venous blood pH measurement 7.02 Low 7.32-7.42 [facility] pH (U)Ordered By: Alexis Friend on 05-01-2024 Urine pH 5.0 5.0 - 8.0 [facility] CNOVon 03-16-2024 CNOV Office Visit (FAMPWS ) MARI LOPEZ ([id number]) 1940 F Date Time Provider Department 03/16/24 11:20 AM MIRYAM OROZCO FAMPWS During your visit today, we recorded the following information about you: Pulse Respiration Blood pressure Weight 56/minute 16/minute 110/66 104.8 kg Miryam Orozco APRN.[facility] 03/16/2024 11:39 AM Addendum Have consult with endocrinology, Dr. Cowart at [facility] to discuss thyroid and elevated PTH. Recommending [...] resume your usual activities immediately. Miryam Orozco APRN.[facility] MANAGER 03/16/2024 4:44 PM Signed This is a 83 year old female who presents today with: No chief complaint on file. HISTORY OF PRESENT ILLNESS: Mari Lopez is a 83 year old female. No chief complaint on file. 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 Which facility: [facility] Date of visit: 02/25/2024-03/02/2024 Diagnosis: S/P left [...] study ordered for 03/04/2024, will follow-up with [facility] pulmonary medicine to go over results. Discharge with PT at [facility]. Instructed to follow-up with surgeon, Dr. Carson. Placed on doxycycline due to arm pain to cover for possible cellulitis where IV was placed. Venous Doppler was negative for any thrombosis in the arm. Needs to complete bone density. Current symptoms: Had follow up with Surgeon, still wearing sling until March 21, still doing PT twice weekly, at [facility]. Doing well since surgery. Next following in [...] knee s(Bosto (more content not included)... Normal [facility] Inital Evaluation (1) - PTon 03-10-2024 Inital Evaluation (1) - PT Normal [facility] Discharge Instructionon 02-05 Discharge Instruction Normal [facility] CBC W/Diff, Automatedon 02-05 Absolute Lymph 1.21 X10 3/uL Normal 0.83-4.51 [facility] Comment on above: Performed By: #### L 100.0100 ####[facility] [address] [place], [address] Absolute Neut 5.7 X10 3/uL Normal 2.0-7.7 [facility] Comment on above: Performed By: #### L 100.0100 ####[facility] [address] [place], [address] Basophils/100 WBC (Bld) 0.5 % Normal 0-1 [facility] Comment on above: Performed By: #### L 100.0100 ####[facility] [address] [place], [address] Eosinophils/100 WBC (Bld) 7.1 % High 0-5 [facility] Comment on above: Performed By: #### L 100.0100 ####[facility] [address] [place], [address] Erythrocyte distribution width (RBC) [Ratio] 13.4 % Normal 11.6-14.6 [facility] Comment on above: Performed By: #### L 100.0100 ####[facility] [address] [place], [address] Hematocrit (Bld) [Volume fraction] 35.0 % Low 37-47 [facility] Comment on above: Performed By: #### L 100.0100 ####[facility] [address] [place], [address] Hemoglobin (Bld) [Mass/Vol] 10.3 g/dL Low 12.0-15.0 [facility] Comment on above: Performed By: #### L 100.0100 ####[facility] [address] [place], [address] IG% 0.900 Normal 0.0-0.9 [facility] Comment on above: Result Comment: IG% - Immature Granulocytes (promyelocytes, myelocytes andmetamyelocytes) > 1% indicates that a LEFT SHIFT is Present. Performed By: #### L 100.0100 ####[facility] [address] [place], [address] Lymphocytes/100 WBC (Bld) 14.9 % Low 19-41 [facility] Comment on above: Performed By: #### L 100.0100 ####[facility] [address] [place], [address] MCH (RBC) [Entitic mass] 32.3 pg High 27.0-32.0 [facility] Comment on above: Performed By: #### L 100.0100 ####[facility] [address] [place], [address] MCHC (RBC) [Mass/Vol] 29.4 g/dL Low 32-36 [facility] Comment on above: Performed By: #### L 100.0100 ####[facility] [address] [place], [address] MCV (RBC) [Entitic vol] 109.7 fL High 81-99 [facility] Comment on above: Performed By: #### L 100.0100 ####[facility] [address] [place], [address] Monocytes/100 WBC (Bld) 6.6 % Normal 0-10 [facility] Comment on above: Performed By: #### L 100.0100 ####[facility] [address] [place], [address] Neutrophils/100 WBC (Bld) 70.0 % Normal 47-70 [facility] Comment on above: Performed By: #### L 100.0100 ####[facility] [address] [place], [address] Nucleated RBC (Bld) [#/Vol] 0 10*3/uL Normal 0-5 [facility] Comment on above: Performed By: #### L 100.0100 ####[facility] [address] [place], [address] Platelet mean volume (Bld) [Entitic vol] 12.3 fL High 6.2-12.0 [facility] Comment on above: Performed By: #### L 100.0100 ####[facility] [address] [place], [address] Platelets (Bld) [#/Vol] 255 10*3/uL Normal 150-450 [facility] Comment on above: Performed By: #### L 100.0100 ####[facility] [address] [place], [address] RBC (Bld) [#/Vol] 3.19 10*6/uL Low 4.2-5.4 [facility] Comment on above: Performed By: #### L 100.0100 ####[facility] [address] [place], [address] RDW SD 54.3 fl High 35.1-43.9 [facility] Comment on above: Performed By: #### L 100.0100 ####[facility] [address] [place], [address] WBC (Bld) [#/Vol] 8.1 10*3/uL Normal 4.4-11.0 [facility] Comment on above: Performed By: #### L 100.0100 ####[facility] [address] [place], [address] Venous Duplex US, Unilateral on 02-29-2024 Venous Duplex US, Unilateral Normal [facility] Urinalysis, Completeon 02-25 BACTERIA 3+ /hpf Normal None Seen [facility] Comment on above: Order Comment: SUSAN TER SPECIMEN Performed By: #### L 400.0001 ####[facility] [address] [place], [address] EPI,SQUAMOUS 0-5 SEEN Normal 5-10 [facility] Comment on above: Order Comment: SUSAN TER SPECIMEN Performed By: #### L 400.0001 ####[facility] [address] [place], [address] RBC 0-5 SEEN Normal 0-5 [facility] Comment on above: Order Comment: SUSAN TER SPECIMEN Performed By: #### L 400.0001 ####[facility] [address] [place], [address] WBC 10-25 SEEN Normal 0-5 [facility] Comment on above: Order Comment: SUSAN TER SPECIMEN Performed By: #### L 400.0001 ####[facility] [address] [place], [address] Mucus Ql (Urine sed) 0 SEEN Normal [facility] Comment on above: Order Comment: SUSAN TER SPECIMEN Performed By: #### L 400.0001 ####[facility] [address] [place], [address] CBC W/Diff, Automatedon 11-2 Absolute Lymph 1.82 X10 3/uL Normal 0.83-4.51 [facility] Comment on above: Performed By: #### L 501.2300, L100.0100, L501.5200, L500.4050 ####[facility] [address] [place], [address] Absolute Neut 3.9 X10 3/uL Normal 2.0-7.7 [facility] Comment on above: Performed By: #### L 501.2300, L100.0100, L501.5200, L500.4050 ####[facility] [address] [place], [address] Basophils/100 WBC (Bld) 0.6 % Normal 0-1 [facility] Comment on above: Performed By: #### L 501.2300, L100.0100, L501.5200, L500.4050 ####[facility] [address] [place], [address] Eosinophils/100 WBC (Bld) 5.8 % High 0-5 [facility] Comment on above: Performed By: #### L 501.2300, L100.0100, L501.5200, L500.4050 ####[facility] [address] [place], [address] Erythrocyte distribution width (RBC) [Ratio] 13.6 % Normal 11.6-14.6 [facility] Comment on above: Performed By: #### L 501.2300, L100.0100, L501.5200, L500.4050 ####[facility] [address] [place], [address] Hematocrit (Bld) [Volume fraction] 33.3 % Low 37-47 [facility] Comment on above: Performed By: #### L 501.2300, L100.0100, L501.5200, L500.4050 ####[facility] [address] [place], [address] Hemoglobin (Bld) [Mass/Vol] 10.2 g/dL Low 12.0-15.0 [facility] Comment on above: Performed By: #### L 501.2300, L100.0100, L501.5200, L500.4050 ####[facility] [address] [place], [address] IG% 0.400 Normal 0.0-0.9 [facility] Comment on above: Result Comment: IG% - Immature Granulocytes (promyelocytes, myelocytes andmetamyelocytes) > 1% indicates that a LEFT SHIFT is Present. Performed By: #### L 501.2300, L100.0100, L501.5200, L500.4050 ####[facility] [address] [place], [address] Lymphocytes/100 WBC (Bld) 26.2 % Normal 19-41 [facility] Comment on above: Performed By: #### L 501.2300, L100.0100, L501.5200, L500.4050 ####[facility] [address] [place], [address] MCH (RBC) [Entitic mass] 32.8 pg High 27.0-32.0 [facility] Comment on above: Performed By: #### L 501.2300, L100.0100, L501.5200, L500.4050 ####[facility] [address] [place], [address] MCHC (RBC) [Mass/Vol] 30.6 g/dL Low 32-36 [facility] Comment on above: Performed By: #### L 501.2300, L100.0100, L501.5200, L500.4050 ####[facility] [address] [place], [address] MCV (RBC) [Entitic vol] 107.1 fL High 81-99 [facility] [facility] Comment on above: Performed By: #### L 501.2300, L100.0100, L501.5200, L500.4050 ####[facility] [address] [place], [address] Monocytes/100 WBC (Bld) 10.5 % High 0-10 [facility] Comment on above: Performed By: #### L 501.2300, L100.0100, L501.5200, L500.4050 ####[facility] [address] [place], [address] Neutrophils/100 WBC (Bld) 56.5 % Normal 47-70 [facility] Comment on above: Performed By: #### L 501.2300, L100.0100, L501.5200, L500.4050 ####[facility] [address] [place], [address] Nucleated RBC (Bld) [#/Vol] 0 10*3/uL Normal 0-5 [facility] Comment on above: Performed By: #### L 501.2300, L100.0100, L501.5200, L500.4050 ####[facility] [address] [place], [address] Platelet mean volume (Bld) [Entitic vol] 12.2 fL High 6.2-12.0 [facility] Comment on above: Performed By: #### L 501.2300, L100.0100, L501.5200, L500.4050 ####[facility] [address] [place], [address] Platelets (Bld) [#/Vol] 183 10*3/uL Normal 150-450 [facility] Comment on above: Performed By: #### L 501.2300, L100.0100, L501.5200, L500.4050 ####[facility] [address] [place], [address] RBC (Bld) [#/Vol] 3.11 10*6/uL Low 4.2-5.4 [facility] Comment on above: Performed By: #### L 501.2300, L100.0100, L501.5200, L500.4050 ####[facility] [address] [place], [address] RDW SD 53.3 fl High 35.1-43.9 [facility] Comment on above: Performed By: #### L 501.2300, L100.0100, L501.5200, L500.4050 ####[facility] [address] [place], [address] WBC (Bld) [#/Vol] 6.9 10*3/uL Normal 4.4-11.0 [facility] Comment on above: Performed By: #### L 501.2300, L100.0100, L501.5200, L500.4050 ####[facility] [address] [place], [address] Comprehensive Metabolic Prof ilon 02-25-2024 Albumin [Mass/Vol] 2.5 g/dL Low 3.2-5.0 [facility] Comment on above: Performed By: #### L 501.2300, L100.0100, L501.5200, L500.4050 ####[facility] [address] [place], [address] Albumin/Globulin [Mass ratio] 0.7 {ratio} Low 0.9-2.4 [facility] Comment on above: Performed By: #### L 501.2300, L100.0100, L501.5200, L500.4050 ####[facility] [address] [place], [address] ALK P 62 U/L Normal 45-117 [facility] Comment on above: Performed By: #### L 501.2300, L100.0100, L501.5200, L500.4050 ####[facility] [address] [place], [address] ALT [Catalytic activity/Vol] 20 U/L Normal 13-56 [facility] Comment on above: Performed By: #### L 501.2300, L100.0100, L501.5200, L500.4050 ####[facility] [address] [place], [address] AST [Catalytic activity/Vol] 22 U/L Normal 15-37 [facility] Comment on above: Performed By: #### L 501.2300, L100.0100, L501.5200, L500.4050 ####[facility] [address] [place], [address] Bilirubin [Mass/Vol] 0.30 mg/dL Normal 0.20-1.00 [facility] Comment on above: Result Comment: For patients on eltrombopag therapy, use of Dimension [place] TBIL is not recommended. Performed By: #### L 501.2300, L100.0100, L501.5200, L500.4050 ####[facility] [address] [place], [address] BUN/CRE 44.2 RATIO High 10-20 [facility] Comment on above: Performed By: #### L 501.2300, L100.0100, L501.5200, L500.4050 ####[facility] [address] [place], [address] CA,Total 8.1 mg/dL Low 8.5-10.1 [facility] Comment on above: Performed By: #### L 501.2300, L100.0100, L501.5200, L500.4050 ####[facility] [address] [place], [address] Chloride [Moles/Vol] 114 mmol/L High 98-107 [facility] Comment on above: Performed By: #### L 501.2300, L100.0100, L501.5200, L500.4050 ####[facility] [address] [place], [address] CO2 [Moles/Vol] 18.0 mmol/L Low 21.0-32.0 [facility] Comment on above: Performed By: #### L 501.2300, L100.0100, L501.5200, L500.4050 ####[facility] [address] [place], [address] Creatinine [Mass/Vol] 1.56 mg/dL High 0.55-1.02 [facility] Comment on above: Result Comment: The validity of the calculated GFR GFRAA in patients over70 years has not been determined. Clinical correlation isessential. Performed By: #### L 501.2300, L100.0100, L501.5200, L500.4050 ####[facility] [address] [place], [address] EST GFR - AA 41 mL/min Low >60 [facility] Comment on above: Result Comment: Afri can British GFR Calc Performed By: #### L 501.2300, L100.0100, L501.5200, L500.4050 ####[facility] [address] [place], [address] GAP 6 Normal 5-15 [facility] Comment on above: Performed By: #### L 501.2300, L100.0100, L501.5200, L500.4050 ####[facility] [address] [place], [address] GFR/1.73 sq M.predicted among non-blacks MDRD (S/P/Bld) [Vol rate/Area] 34 mL/min/{1.73_m2} Low >60 [facility] Comment on above: Result Comment: Non- GFR Calc Performed By: #### L 501.2300, L100.0100, L501.5200, L500.4050 ####[facility] [address] [place], [address] Globulin (S) [Mass/Vol] 3.5 g/dL Normal 2.2-4.2 [facility] Comment on above: Performed By: #### L 501.2300, L100.0100, L501.5200, L500.4050 ####[facility] [address] [place], [address] Glucose [Mass/Vol] 109 mg/dL High 74-106 [facility] Comment on above: Result Comment: Fast ing Glucose result from 100 to 125 mg/dLsuggests IMPAIRED HOMEOSTASIS per A.D.A. criteria. Performed By: #### L 501.2300, L100.0100, L501.5200, L500.4050 ####[facility] [address] [place], [address] Potassium [Moles/Vol] 4.6 mmol/L Normal 3.5-5.1 [facility] Comment on above: Performed By: #### L 501.2300, L100.0100, L501.5200, L500.4050 ####[facility] [address] [place], [address] Sodium [Moles/Vol] 138 mmol/L Normal 136-145 [facility] Comment on above: Performed By: #### L 501.2300, L100.0100, L501.5200, L500.4050 ####[facility] [address] [place], [address] T PROT 6.0 g/dL Low 6.4-8.2 [facility] Comment on above: Performed By: #### L 501.2300, L100.0100, L501.5200, L500.4050 ####[facility] [address] [place], [address] Urea nitrogen [Mass/Vol] 69 mg/dL High 7-18 [facility] Comment on above: Performed By: #### L 501.2300, L100.0100, L501.5200, L500.4050 ####[facility] [address] [place], [address] Ferritinon 02-25-2024 Ferritin [Mass/Vol] 94 ng/mL Normal 8-252 [facility] Comment on above: Performed By: #### L 503.6550, L503.6030 ####[facility] [address] [place], [address] Folates, (Folic Acid)on 02-05 FOLATES 29.20 ng/mL Normal 3.1-55.4 [facility] Comment on above: Order Comment: Has P atient had X-rays with Contrast this admission? [place] Result Comment: Slig ht Hemolysis, Result may be falsely increased. Performed By: #### L 506.0250, L506.0400, L501.9520 ####[facility] [address] [place], [address] Iron+Iron Binding Capacityon 02-25-2024 Iron [Mass/Vol] 26 ug/dL Low 50-170 [facility] Comment on above: Result Comment: Slig ht Hemolysis, Result may be falsely increased. Performed By: #### L 503.6550, L503.6030 ####[facility] [address] [place], [address] IRON SATURATION 6.6 Low 15.0-55.0 [facility] Comment on above: Performed By: #### L 503.6550, L503.6030 ####[facility] [address] [place], [address] TIBC 396 ug/dL Normal 250-450 [facility] Comment on above: Performed By: #### L 503.6550, L503.6030 ####[facility] [address] [place], [address] Magnesiumon 02-25-2024 Magnesium [Mass/Vol] 2.1 mg/dL Normal 1.6-2.6 [facility] Comment on above: Performed By: #### L 501.2300, L100.0100, L501.5200, L500.4050 ####[facility] [address] [place], [address] Phosphoruson 02-25-2024 Phosphate [Mass/Vol] 4.6 mg/dL Normal 2.5-4.9 [facility] Comment on above: Performed By: #### L 501.2300, L100.0100, L501.5200, L500.4050 ####[facility] [address] [place], [address] Retic Panelon 02-25-2024 IM RET FRACTION 21.90 High 3.00-15.90 [facility] Comment on above: Performed By: #### L 100.9950 ####[facility] [address] [place], [address] RET-HE 32.4 pg Normal 30-35 [facility] Comment on above: Performed By: #### L 100.9950 ####[facility] [address] [place], [address] Retic Count 2.34 High 0.5-1.5 [facility] Comment on above: Performed By: #### L 100.9950 ####[facility] [address] [place], [address] Stool Occult Blood iFOBon STOB Negative Normal [facility] Comment on above: Performed By: #### M 100.7900 ####[facility] [address] [place], [address] T4 Free Directon 02-25-2024 T4 FREE DIRECT 1.68 ng/dL High 0.76-1.46 [facility] Comment on above: Order Comment: Has P atient had X-rays with [facility] this admission? [place] Performed By: #### L 506.0250, L506.0400, L501.9520 ####[facility] [address] [place], [address] Thyroid Stim Hormone (TSH)on 02-25-2024 TSH 0.449 uIU/mL Normal 0.358-3.74 0 [facility] Comment on above: Order Comment: Has P atricardo had X-rays with [facility] this admission? [place] Performed By: #### L 506.0250, L506.0400, L501.9520 ####[facility] [address] [place], [address] Vitamin B12on 02-25-2024 Cobalamin (Vitamin B12) [Mass/Vol] 561 pg/mL Normal 211-911 [facility] Comment on above: Performed By: #### L 503.0105 ####[facility] [address] [place], [address] PT D/C Summary (1)on 024 PT D/C Summary (1) Normal [facility] CNPNon [facility] JOHNMARI Gerry ([id number]) 1940 F Date Time Provider Department 02/12/24 LIZY CAPONE [facility] During your visit today, we recorded the following information about you: Alex Lackey MA 02/12/2024 9:00 AM Signed Type of letter/form/fax request - medical clearance request for surgery Form received from fax on 1 floor and placed on desk (Dr. Capone) for completion. Completed form needs to be faxed to [facility] at [phone]. Pt scheduled for Left reverse total shoulder arthroplasty on 02/22/[address] Klaus Omalley. Pt has PAT on 02/18/24 at [facility]. Pt last OV on 01/28/24 with Miryam Orozco for routine follow up. Route to [place] when form completed for processing Lizy Capone [...] for Visit: medical clearance form [Other] Cmt: [facility] for shoulder surgery Prescriptions as of [...] 24 hr tablet Take by mouth. - Tlpxllumzss-Sqqmcipgv-Lyv C-Mn (GLUCOSAMINE CHONDROITIN MAXSTR) 500-400 mg cap Take 1 capsule by mouth three times daily. - COMPOUNDED PRESCRIPTION Stair lift - DAILY-LUISITO tablet TAKE 1 TABLET BY MOUTH ONCE DAILY. - efyyecv-kvacolrdw-uauicmy D3 (CALCIUM 500+D) 500 mg(1,250mg) -200 unit [...] [1003] 05/07/2005 07/12/2021 INJURY TRUNK SITE NEC [[id number]] 01/16/2006 07/01/2007 Anemia in (more content not included)... Normal [facility] 12 Lead EKG performed by BMS on 02-09-2024 12 Lead EKG performed by BMS Normal [facility] Cardiology Visit Reporton Cardiology Visit Report Normal [facility] CNOVon 01-28-2024 CNOV Office Visit (ALFREDWS ) MARI LOPEZ ([id number]) 1940 F Date Time Provider Department 01/28/24 9:00 AM MIRYAM OROZCO During your visit today, we recorded the following information about you: Pulse Respiration Blood pressure Weight 77/minute 16/minute 122/60 103.9 kg Miryam Orozco APRN.MRI MANAGER 01/28/2024 2:38 PM Signed This is a 83 year old female who presents today with: Patient presents with: 6 Month Exam HISTORY OF PRESENT ILLNESS: Mari Lpoez is a 83 year old female. Patient [...] having left shoulder surgery in February with [facility], Dr. Omalley. LLE: Lasix 40 mg [...] CONDYLEANDPLATU MEDIALANDLAT COMPARTMENTS 1990 bilateral total knee s([place]) ARTHRP KNE CONDYLEANDPLATU MEDIALANDLAT COMPARTMENTS 10/24/04 bilateral total knee revisions DELIVERY ONLY , low cervical CHOLECYSTECTOMY COLONOSCOPY FLX DX W/COLLJ SPEC WHEN PFRMD 11/17/2017 Colonoscopy DEBRIDEMENT SUBCUTANEOUS TISSUE 20 SQ CM/< 02/17/07 LEFT LEG DEBRIDEMENT SUBCUTANEOUS TISSUE 20 SQ CM/< [id number] LEFT LEG DEBRIDEMENT SUBCUTANEOUS TISSUE 20 SQ CM/< [id number] LEFT LEG DEBRIDEMENT SUBCUTANEOUS TISSUE 20 SQ CM/< [id number] LEFT LEG DEBRIDEMENT SUBCUTANEOUS TISSUE 20 SQ CM/< [id number] LEFT LEG DEBRIDEMENT SUBCUTANEOUS TISSUE 20 SQ [...] daily. amLODIPi (more content not included)... Normal [facility] T4 Free SerPl-mCncon 024 Free T4 [Mass/Vol] 1.5 ng/dL Normal 0.9-1.7 [facility] Comment on above: Order Comment: Speci men Type: BLOOD SPECIMENOrdering Facility: [facility] Address: [address] [place], [place] [address] Performed By: #### 3 024-7, 3016-3 ####[facility] LABCLIA [id number] [place] [id number] [place] TSH SerPl-aCncon 01-26-2024 TSH Qn 3.870 m[IU]/L Normal 0.270-4.20 0 [facility] Comment on above: Order Comment: Speci men Type: BLOOD SPECIMENOrdering Facility: [facility] Address: [address] [place] [address] Performed By: #### 3 024-7, 3016-3 ####[facility] LABCLIA [id number] [address] OF [place] CNPNon 12-29-2023 CNPN Telephone ([place]) MARI LOPEZ ([id number]) 1940 F Date Time Provider Department 12/29/23 STEPHANIE JACKSON During your visit today, we recorded the following information about you: [facility] 12/[facility]/2023 8:56 AM Signed Patient is being referred to Dr. Jackson by Dr. Lokesh Mc for left knee pain. Please reach out to patient and assist with scheduling a consultation. 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 [place] Mere [facility] Michael Diop 12/29/2023 10:40 AM Signed Lvm for patient to call back and schedule an appointment with Dr. Jackson for knee pain. Michael Diop 12/31/2023 8:15 AM Signed Lvm for patient to call back and schedule an appointment with Dr. Jackson. Michale Diop 01/04/2024 8:39 AM Signed Lvm for patient [...] 24 hr tablet Take by mouth. - Kjrjjajfbod-Xlddimpbe-Hjo C-Mn (GLUCOSAMINE CHONDROITIN MAXSTR) 500-400 mg cap Take 1 capsule by mouth three times daily. - COMPOUNDED PRESCRIPTION Stair lift - DAILY-LUISITO tablet TAKE 1 TABLET BY MOUTH ONCE DAILY. - wtfectm-wdhmrkkvg-ihpfknk D3 (CALCIUM 500+D) 500 mg(1,250mg) -200 unit [...] [1003] 05/07/2005 07/12/2021 INJURY TRUNK SITE NEC [[id number]] 01/16/2006 07/01/2007 Anemia in chronic kidney disease (CKD) [N18.9, *03/17/2006 Non-Healing Surgical Wound [T81.89XA] 03/16/2007 05/18/2009 FEMALE STRESS INCONTINENC (more content not included)... Normal [facility] Inital Evaluation (1) - PTon 12-24-2023 Inital Evaluation (1) - PT Normal [facility] CNOVon 12-17-2023 CNOV Office Visit (SPAGWO ) MARI LOPEZ ([id number]) 1940 F Date Time Provider Department 12/17/23 8:45 AM ROQUE DELGADOWO During your visit today, we recorded the following information about you: Pulse Respiration [facility] CNPN Telephone (FAMPWS) MARI LOPEZ ([id number]) 1940 F Date Time Provider Department 12/16/23 MIRYAM OROZCO [facility] During your visit today, we recorded the following information about you: Miryam Orozco APRN.MRI MANAGER 12/16/2023 7:29 PM Signed Can you please [...] some form exercise. Keep scheduled appointments with environmental project manager. Please let me know what she prefers regarding her thyroid. Thank you Miryam Orozco APRN.Minna Morgan LPN 12/17/2023 8:46 AM Signed TC to pt. LM to call office, ask for triage nurse to get results. RUDDY Gong Lilo RUDDY York 12/17/2023 3:03 PM Signed Patient returned call, given below results/recommendations, verbalized understanding. Patient wanting to stay on same dose of Synthroid and recheck labs in 6-8 weeks. Miryam Singh LPN, APRN.CJ 12/17/2023 3:31 PM Signed Lab orders have [...] [E03.9] Order(s):THYROID STIMULATING HORMONE [SQTSH] Order #: [id number] FUTURE T4 FREE/FREE THYROXINE [SQFT4] Order #: [id number] FUTURE Prescriptions as of 12/17/2023 - zolpidem [...] 24 hr tablet Take by mouth. - Lmekwkpcijt-Ryrwnezze-Uzo C-Mn (GLUCOSAMINE CHONDROITIN MAXSTR) 500-400 mg cap Take 1 capsule by mouth three times daily. - COMPOUNDED PRESCRIPTION Stair lift - DAILY-LUISITO tablet TAKE 1 TABLET BY MOUTH ONCE DAILY. - qdluffv-nnnohofgy-dufdlac D3 (CALCIUM 500+D) 500 mg(1,250mg) -200 unit [...] TAB Take (more content not included)... Normal [facility] MARI LOPE[facility] ([id number]) 1940 F Date Time Provider Department 12/14/23 [facility] During your visit today, we recorded the [...] elaborate or confirm Was Patient Referred to [facility]/Seek Emergency Treatment (Y/N): n Did Patient Agree (Y/N): n/a Was An Attempt Made To Transfer The Patient To The Office (Y/N): n Were You Able To Reach Someone At The Office (Y/N): n/a If Yes - Patient Was Transferred To (Caregivers Name): n/a If No - Which [facility] Leadership Rotary Driller Did You Speak With Regarding This Patient: n/a Was an appointment scheduled (Y/N): n Reason patient was requesting visit (RFV/signs and symptoms/diagnosis) : n/a Person calling if other than patient: self Return call to if other than patient: self Best contact number: [phone] Thank you, Linda Singh December 14, 2023 12:40 PM Sebastien Sofía 12/14/2023 1:04 PM Signed This patient does not have mychart- but was scheduled for a VV Please reschedule her to in person as we do not schedule phone call visits any longer Gonzalo Holland 12/14/2023 1:32 PM Signed Patient has been rescheduled with Dr. Delgado in [place] on 12/16 at 8:45am. Gonzalo Holland Allergies [...] 24 hr tablet Take by mouth. - Bxfecxknevu-Ofgdrexxm-Dgr C-Mn (GLUCOSAMINE CHONDROITIN MAXSTR) 500-400 mg cap Take 1 capsule by mouth three times daily. - COMPOUNDED PRESCRIPTION Stair lift - DAILY-LUISITO tablet TAKE 1 TABLET BY MOUTH ONCE DAILY. - momwfxp-zgsulzorp-zevwxdf D3 (CALCIUM 500+D) 500 mg(1,250mg) -200 unit [...] content not included)... Normal [facility] MARI LOPEZ ([id number]) 1940 F Date Time Provider Department 12/14/23 MIRYAM OROZCO [facility] During your visit today, we recorded the following information about you: Minna Blue LPN 12/14/2023 10:41 AM Signed Pt came to window requesting a order for Physical Therapy due to frequent falls. She would like it faxed to [facility]. RUDDY Gong Ashley, APRN.CNP 12/14/2023 11:32 AM Signed Order for physical therapy has been placed. Will be faxed to [facility]. Miryam Orozco APRN.CJ Allergies As of Date: [...] Order(s):CONSULT TO PHYSICAL THERAPY [9032] Order #: [id number]: 1 FUTURE Prescriptions as of 12/14/2023 - [...] 24 hr tablet Take by mouth. - Csdhlgebafi-Awdwqfuia-Exp C-Mn (GLUCOSAMINE CHONDROITIN MAXSTR) 500-400 mg cap Take 1 capsule by mouth three times daily. - COMPOUNDED PRESCRIPTION Stair lift - DAILY-LUISITO tablet TAKE 1 TABLET BY MOUTH ONCE DAILY. - efopsho-aqpgsvlbp-grzagmu D3 (CALCIUM 500+D) 500 mg(1,250mg) -200 unit [...] [1003] 05/07/2005 07/12/2021 INJURY TRUNK SITE NEC [[id number]] 01/16/2006 07/01/2007 Anemia in chronic kidney disease (CKD) [N18.9, *03/17/2006 Non-Healing Surgical Wound [T81.89XA] 03/16/2007 05/18/2009 FEMALE STRESS INCONTINENCE [N39.3] 07/12/2008 MASS IN SUBCUTANEOUS TISSUE [R22.9] 07/21/2008 08/18/2018 Pain in Joint, Lower Leg [M25.569] 11/14/200808/21 (more content not included)... Normal [facility] Comprehensive metabolic 2000 panelon 12-14-2023 Albumin [Mass/Vol] 3.9 g/dL Normal 3.9-4.9 [facility] Comment on above: Order Comment: Speci men Type: BLOOD SPECIMENOrdering Facility: [facility] Address: [address] [place] [address] Performed By: #### 3 016-3, 32267-2, 72733-1 ####[facility] LABCLIA [id number] [place] [address] [place] ALP [Catalytic activity/Vol] 77 U/L Normal 34-123 [facility] Comment on above: Order Comment: Speci men Type: BLOOD SPECIMENOrdering Facility: [facility] Address: [address] [place] [address] Performed By: #### 3 016-3, 01493-2, 68611-5 ####[facility] LABCLIA [id number] [place] [address] [place] ALT [Catalytic activity/Vol] 15 U/L Normal 7-38 [facility] Comment on above: Order Comment: Speci men Type: BLOOD SPECIMENOrdering Facility: [facility] Address: [address] [place] [address] Performed By: #### 3 016-3, , ####[facility] LABCLIA [id number] [place] [address] [place] Anion gap [Moles/Vol] 14 mmol/L Normal 8-15 [facility] Comment on above: Order Comment: Speci men Type: BLOOD SPECIMENOrdering Facility: [facility] Address: [address] [place] [address] Performed By: #### 3 016-3, 55580-2, 20401-0 ####[facility] LABCLIA [id number] [place] [address] [place] AST [Catalytic activity/Vol] 22 U/L Normal 13-35 [facility] Comment on above: Order Comment: Speci men Type: BLOOD SPECIMENOrdering Facility: [facility] Address: [address] [place] [address] Performed By: #### 3 016-3, 07176-2, 60604-9 ####[facility] LABCLIA [id number] [place] [address] [place] Bilirubin [Mass/Vol] 0.4 mg/dL Normal 0.2-1.3 [facility] Comment on above: Order Comment: Speci men Type: BLOOD SPECIMENOrdering Facility: [facility] Address: [address] [place] [address] Performed By: #### 3 016-3, 43557-0, 21640-1 ####[facility] LABCLIA [id number] [place] [address] [place] Calcium [Mass/Vol] 9.1 mg/dL Normal 8.5-10.2 [facility] Comment on above: Order Comment: Speci men Type: BLOOD SPECIMENOrdering Facility: [facility] Address: [address] [place] [address] Performed By: #### 3 016-3, 05618-0, 86030-3 ####[facility] LABCLIA [id number] [place] [address] [place] Chloride [Moles/Vol] 109 mmol/L High 98-107 [facility] Comment on above: Order Comment: Speci men Type: BLOOD SPECIMENOrdering Facility: [facility] Address: [address] [place] [address] Performed By: #### 3 016-3, 37206-0, 25649-5 ####[facility] LABCLIA [id number] [place] [address] [place] CO2 [Moles/Vol] 17 mmol/L Low 22-30 [facility] Comment on above: Order Comment: Speci men Type: BLOOD SPECIMENOrdering Facility: [facility] Address: [address] [place] [address] Performed By: #### 3 016-3, , ####[facility] [place] LABCLIA [id number] [place] [address] [place] Creatinine [Mass/Vol] 1.72 mg/dL High 0.58-0.96 [facility] Comment on above: Order Comment: Lea men Type: BLOOD SPECIMENOrdering Facility: [facility] Address: [address] [place] [address] Performed By: #### 3 016-3, , ####[facility] [place] LABIA [id number] [place] [address] [place] Creatinine and Glomerular filtration rate.predicted panel (S/P/Bld) 30 mL/min/1.73m??? Low >=60 [facility] Comment on above: Order Comment: Lea monae Type: BLOOD SPECIMENOrdering Facility: [facility] Address: [address] [place] [address] Result Comment: Kayy mated Glomerular Filtration Rate [...] accurately reflect actual GFR. Performed By: #### 3 016-3, , ####[facility] [place] LABIA [id number] [place] [address] [place] Glucose [Mass/Vol] 99 mg/dL Normal 74-99 [facility] Comment on above: Order Comment: Jesui men Type: BLOOD SPECIMENOrdering Facility: [facility] Address: [address] [place] [address] Result Comment: The [place] Diabetes Association (ADA) provides guidance for cutoff [...] Standards of Medical Care in Diabetes 2016, British Diabetes Association. Diabetes Care. 2016.39(Suppl 1). Performed By: #### 3 016-3, 78187-1, ####[facility] [place] LABCLIA [id number] [place] [address] [place] Potassium [Moles/Vol] 5.3 mmol/L High 3.7-5.1 [facility] Comment on above: Order Comment: Speci men Type: BLOOD SPECIMENOrdering Facility: [facility] Address: [address] [place] [address] Performed By: #### 3 016-3, , ####[facility] [place] LABCLIA [id number] [place] [address] [place] Protein [Mass/Vol] 6.6 g/dL Normal 6.3-8.0 [facility] Comment on above: Order Comment: Speci men Type: BLOOD SPECIMENOrdering Facility: [facility] Address: [address] [place] [address] Performed By: #### 3 016-3, , ####[facility] [place] LABCLIA [id number] [place] [address] [place] Sodium [Moles/Vol] 140 mmol/L Normal 136-144 [facility] Comment on above: Order Comment: Speci men Type: BLOOD SPECIMENOrdering Facility: [facility] Address: [address] [place] [address] Performed By: #### 3 016-3, 13749-6, 23097-3 ####[facility] [place] LABCLIA [id number] [place] [address] [place] Urea nitrogen [Mass/Vol] 68 mg/dL High 7-21 [facility] Comment on above: Order Comment: Speci men Type: BLOOD SPECIMENOrdering Facility: [facility] Address: [address] [place] [address] Performed By: #### 3 016-3, 25346-7, 52856-8 ####[facility] [place] LABCLIA [id number] [place] [address] [place] Lipid 1996 panelon 4 Cholesterol [Mass/Vol] 179 mg/dL Normal <200 [facility] Comment on above: Order Comment: Speci men Type: BLOOD SPECIMENOrdering Facility: [facility] Address: [address] [place] [address] Result Comment: <200 mg/dL, Desirable 200-239 mg/dL, Borderline high >239 mg/dL, High Performed By: #### 3 016-3, 11969-2, 23467-1 ####[facility] [place] LABCLIA [id number] [place] [address] [place] Cholesterol in HDL [Mass/Vol] 55 mg/dL Normal >39 [facility] Comment on above: Order Comment: Speci men Type: BLOOD SPECIMENOrdering Facility: [facility] Address: [address] [place] [address] Result Comment: 40-5 9 mg/dL, Acceptable >59 mg/dL, High: Negative risk factor for coronary heart disease <40 mg/dL, Low: Positive risk factor for coronary heart disease Performed By: #### 3 016-3, 90496-8, 42993-1 ####[facility] [place] LABCLIA [id number] [place] [address] [place] Cholesterol in LDL [Mass/Vol] 90 mg/dL Normal <100 [facility] Comment on above: Order Comment: Speci men Type: BLOOD SPECIMENOrdering Facility: [facility] Address: [address] [place] [address] Result Comment: <100 mg/dL, Optimal 100-129 mg/dL, Near optimal/above optimal 130-159 mg/dL, Borderline high 160-189 mg/dL, High >189 mg/dL, Very high Secondary prevention optimal LDL Cholesterol levels are recommended to be < 70 mg/dL Performed By: #### 3 016-3, 70904-2, 95938-3 ####[facility] [place] LABCLIA [id number] [place] [address] [place] Cholesterol in LDL/Cholesterol in HDL [Mass ratio] 1.64 {ratio} Normal <2.54 [facility] Comment on above: Order Comment: Speci men Type: BLOOD SPECIMENOrdering Facility: [facility] Address: [address] [place] [address] Result Comment: Jaycob engel: 1. National Cholesterol Education Program ATP III Guideline At-A-Glance Quick Desk Reference: National Heart, Lung, and Blood [place]. National Institutes of Health. 2001: NIH Publication No. 01-3305. 2. An International Atherosclerosis Society position paper: global recommendations for the management of dyslipidemia: executive summary, Atherosclerosis. 2014: 232(2):410-413. Performed By: #### 3 016-3, 38504-9, 28579-5 ####[facility] [place] LABCLIA [id number] [place] [address] [place] Cholesterol in VLDL [Mass/Vol] 34 mg/dL High <30 [facility] Comment on above: Order Comment: Speci men Type: BLOOD SPECIMENOrdering Facility: [facility] Address: [address] [place] [address] Performed By: #### 3 016-3, 85921-6, 51384-2 ####[facility] [place] LABCLIA [id number] [place] [address] [place] Cholesterol non HDL [Mass/Vol] 124 mg/dL Normal <130 [facility] Comment on above: Order Comment: Speci men Type: BLOOD SPECIMENOrdering Facility: [facility] Address: [address] [place] [address] Result Comment: <130 mg/dL, Optimal 130-159 mg/dL, Near optimal/above optimal 160-189 mg/dL, Borderline high 190-219 mg/dL, High >219 mg/dL, Very high Secondary prevention optimal non HDL Cholesterol levels are recommended to be <100 mg/dL Performed By: #### 3 016-3, 07848-5, 63035-1 ####[facility] [place] LABCLIA [id number] [place] [address] [place] Cholesterol.total/Chol esterol in HDL [Mass ratio] 3.25 {ratio} Normal <5.10 [facility] Comment on above: Order Comment: Speci men Type: BLOOD SPECIMENOrdering Facility: [facility] Address: [address] [place] [address] Performed By: #### 3 016-3, 94447-0, 04008-1 ####[facility] [place] LABCLIA [id number] [address] STATES OF [facility] FASTING TIME 12 hrs Normal [facility] Comment on above: Order Comment: Speci men Type: BLOOD SPECIMENOrdering Facility: [facility] Address: [address] [place] [address] Performed By: #### 3 016-3, 42560-9, 56201-7 ####[facility] [place] LABCLIA [id number] [address] [place] Triglyceride [Mass/Vol] 168 mg/dL High <150 [facility] Comment on above: Order Comment: Speci men Type: BLOOD SPECIMENOrdering Facility: [facility] Address: [address] [place] [address] Result Comment: <150 mg/dL, Normal 150-199 mg/dL, Borderline high 200-499 mg/dL, High >499 mg/dL, Very high Performed By: #### 3 016-3, 93315-4, 35165-4 ####[facility] [place] LABCLIA [id number] [place] [address] [place] TSH SerPl-aCncon 12-14-2023 TSH Qn 4.550 m[IU]/L High 0.270-4.20 0 [facility] Comment on above: Order Comment: Speci men Type: BLOOD SPECIMENOrdering Facility: [facility] Address: [address] [place] [address] Performed By: #### 3 016-3, 56210-7, 35353-5 ####[facility] [place] LABCLIA [id number] [facility] [place] [id number] [id number] [facility] CNOVon 12-04-2023 CNOV Office Visit (OBGYWM ) MARI LOPEZ ([id number]) 1940 F Date Time Provider Department 12/04/23 9:00 AM STARR SOLANO OBCHERRIE During your visit today, we recorded the [...] L1 SAB0 IAB0 Ectopic0 Multiple0 Live Births0 Glue Jointer 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 LMP: Postmenopausal Age at Menarche: Age at First : Age at Menopause: Glue Jointer 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 Comments: Sexual Activity: Never; No partner [...] CONDYLEANDPLATU MEDIALANDLAT COMPARTMENTS Comment: bilateral total knee s(Racine) 10/24/04 : ARTHRP KNE CONDYLEANDPLATU MEDIALANDLAT COMPARTMENTS Comment: bilateral total knee revisions No date: DELIVERY ONLY Comment: , low cervical No date: CHOLECYSTECTOMY 11/17/2017: COLONOSCOPY FLX DX W/COLLJ SPEC WHEN PFRMD Comment: Colonoscopy 02/17/07: DEBRIDEMENT SUBCUTANEOUS TISSUE 20 SQ CM/< Comment: LEFT LEG [id number]: DEBRIDEMENT SUBCUTANEOUS TISSUE 20 SQ CM/< Comment: LEFT LEG [id number]: DEBRIDEMENT SUBCUTANEOUS TISSUE 20 SQ CM/< Comment: LEFT LEG [id number]: DEBRIDEMENT SUBCUTANEOUS TISSUE 20 SQ CM/< Comment: LEFT LEG [id number]: DEBRIDEMENT SUBCUTANEOUS TISSUE 20 SQ CM/< Comment: [...] Take 1,0 (more content not included)... Normal [facility] CBC-Complete Blood Cnt No Di ffon 12-01-2023 Erythrocyte distribution width (RBC) [Ratio] 14.3 % Normal 11.6-14.6 [facility] Comment on above: Performed By: #### L 500.3600, L509.1000, L100.0500, L506.1000, L501.0900 ####[facility] [address] [place], [address] Hematocrit (Bld) [Volume fraction] 35.4 % Low 37-47 [facility] Comment on above: Performed By: #### L 500.3600, L509.1000, L100.0500, L506.1000, L501.0900 ####[facility] [address] [place], [address] Hemoglobin (Bld) [Mass/Vol] 10.7 g/dL Low 12.0-15.0 [facility] Comment on above: Performed By: #### L 500.3600, L509.1000, L100.0500, L506.1000, L501.0900 ####[facility] [address] [place], [address] MCH (RBC) [Entitic mass] 31.8 pg Normal 27.0-32.0 [facility] Comment on above: Performed By: #### L 500.3600, L509.1000, L100.0500, L506.1000, L501.0900 ####[facility] [address] [place], [address] MCHC (RBC) [Mass/Vol] 30.2 g/dL Low 32-36 [facility] Comment on above: Performed By: #### L 500.3600, L509.1000, L100.0500, L506.1000, L501.0900 ####[facility] [address] [place], [address] MCV (RBC) [Entitic vol] 105.4 fL High 81-99 [facility] Comment on above: Performed By: #### L 500.3600, L509.1000, L100.0500, L506.1000, L501.0900 ####[facility] [address] [place], [address] Platelet mean volume (Bld) [Entitic vol] 12.3 fL High 6.2-12.0 [facility] Comment on above: Performed By: #### L 500.3600, L509.1000, L100.0500, L506.1000, L501.0900 ####[facility] [address] [place], [address] Platelets (Bld) [#/Vol] 267 10*3/uL Normal 150-450 [facility] Comment on above: Performed By: #### L 500.3600, L509.1000, L100.0500, L506.1000, L501.0900 ####[facility] [address] [place], [address] RBC (Bld) [#/Vol] 3.36 10*6/uL Low 4.2-5.4 [facility] Comment on above: Performed By: #### L 500.3600, L509.1000, L100.0500, L506.1000, L501.0900 ####[facility] [address] [place], [address] RDW SD 55.7 fl High 35.1-43.9 [facility] Comment on above: Performed By: #### L 500.3600, L509.1000, L100.0500, L506.1000, L501.0900 ####[facility] [address] [place], [address] WBC (Bld) [#/Vol] 7.9 10*3/uL Normal 4.4-11.0 [facility] Comment on above: Performed By: #### L 500.3600, L509.1000, L100.0500, L506.1000, L501.0900 ####[facility] [address] [place], [address] PTHINon 12-01-2023 PTH 195.9 pg/mL High 18.4-80.1 [facility] Comment on above: Performed By: #### L 500.3600, L509.1000, L100.0500, L506.1000, L501.0900 ####[facility] [address] [place], [address] Protein+Creatinine Ratio,Uri neon 12-01-2023 PROT:CRE RATIO 316 mg/g CRE High 0-200 [facility] Comment on above: Performed By: #### L 500.3600, L509.1000, L100.0500, L506.1000, L501.0900 ####[facility] [address] [place], [address] Protein (U) [Mass/Vol] 14.9 mg/dL High <11.9 [facility] Comment on above: Performed By: #### L 500.3600, L509.1000, L100.0500, L506.1000, L501.0900 ####[facility] [address] [place], [address] UR CREAT 47.10 mg/dL Normal NO RANGE EST. [facility] Comment on above: Performed By: #### L 500.3600, L509.1000, L100.0500, L506.1000, L501.0900 ####[facility] [address] [place], [address] Renal Profileon 12-01-2023 Albumin [Mass/Vol] 3.1 g/dL Low 3.2-5.0 [facility] Comment on above: Order Comment: PRO Performed By: #### L 500.3600, L509.1000, L100.0500, L506.1000, L501.0900 ####[facility] [address] [place], [address] BUN/CRE 42.6 RATIO High 10-20 [facility] Comment on above: Order Comment: PRO Performed By: #### L 500.3600, L509.1000, L100.0500, L506.1000, L501.0900 ####[facility] [address] [place], [address] CA,Total 8.7 mg/dL Normal 8.5-10.1 [facility] Comment on above: Order Comment: PRO Performed By: #### L 500.3600, L509.1000, L100.0500, L506.1000, L501.0900 ####[facility] [address] [place], [address] Chloride [Moles/Vol] 114 mmol/L High 98-107 [facility] Comment on above: Order Comment: PRO Performed By: #### L 500.3600, L509.1000, L100.0500, L506.1000, L501.0900 ####[facility] [address] [place], [address] CO2 [Moles/Vol] 18.0 mmol/L Low 21.0-32.0 [facility] Comment on above: Order Comment: PRO Performed By: #### L 500.3600, L509.1000, L100.0500, L506.1000, L501.0900 ####[facility] [address] [place], [address] Creatinine [Mass/Vol] 1.88 mg/dL High 0.55-1.02 [facility] Comment on above: Order Comment: PRO Result Comment: The validity of the calculated GFR GFRAA in patients over70 years has not been determined. Clinical correlation isessential. Performed By: #### L 500.3600, L509.1000, L100.0500, L506.1000, L501.0900 ####[facility] [address] [place], [address] EST GFR - AA 33 mL/min Low >60 [facility] Comment on above: Order Comment: PRO Result Comment: Afri can [place] GFR Calc Performed By: #### L 500.3600, L509.1000, L100.0500, L506.1000, L501.0900 ####[facility] [address] [place], [address] GFR/1.73 sq M.predicted among non-blacks MDRD (S/P/Bld) [Vol rate/Area] 27 mL/min/{1.73_m2} Low >60 [facility] Comment on above: Order Comment: PRO Result Comment: Non- GFR Calc Performed By: #### L 500.3600, L509.1000, L100.0500, L506.1000, L501.0900 ####[facility] [address] [place], [address] Glucose [Mass/Vol] 108 mg/dL High 74-106 [facility] Comment on above: Order Comment: PRO Result Comment: Fast ing Glucose result from 100 to 125 mg/dLsuggests IMPAIRED HOMEOSTASIS per A.D.A. criteria. Performed By: #### L 500.3600, L509.1000, L100.0500, L506.1000, L501.0900 ####[facility] [address] [place], [address] Phosphate [Mass/Vol] 4.4 mg/dL Normal 2.5-4.9 [facility] Comment on above: Order Comment: PRO Performed By: #### L 500.3600, L509.1000, L100.0500, L506.1000, L501.0900 ####[facility] [address] [place], [address] Potassium [Moles/Vol] 4.5 mmol/L Normal 3.5-5.1 [facility] Comment on above: Order Comment: PRO Performed By: #### L 500.3600, L509.1000, L100.0500, L506.1000, L501.0900 ####[facility] [address] [place], [address] Sodium [Moles/Vol] 141 mmol/L Normal 136-145 [facility] Comment on above: Order Comment: PRO Performed By: #### L 500.3600, L509.1000, L100.0500, L506.1000, L501.0900 ####[facility] [address] [place], [address] Urea nitrogen [Mass/Vol] 80 mg/dL High 7-18 [facility] Comment on above: Order Comment: PRO Performed By: #### L 500.3600, L509.1000, L100.0500, L506.1000, L501.0900 ####[facility] [address] [place], [address] Vitamin D,25 Hydroxyon 11-30 Vitamin D 25-OH 28.3 ng/mL Normal [facility] Comment on above: Result Comment: Olya min D 25(OH) Status Range Deficiency <20 ng/mL (50nmol/L) Insufficiency 20 - 30 ng/mL (50 - 75 nmol/L) Sufficiency 30 - 100 ng/mL (75 - 250 nmol/L) Toxicity >100 ng/mL (>250 nmol/L) Performed By: #### L 500.3600, L509.1000, L100.0500, L506.1000, L501.0900 ####[facility] [address] [place], [address] [facility] ([id number]) 1940 F Date Time Provider Department 11/18/23 [facility] During your visit today, we recorded the [...] 24 hr tablet Take by mouth. - Znechujricy-Wquzpmwsw-Ahe C-Mn (GLUCOSAMINE CHONDROITIN MAXSTR) 500-400 mg cap Take 1 capsule by mouth three times daily. - COMPOUNDED PRESCRIPTION Stair lift - DAILY-LUISITO tablet TAKE 1 TABLET BY MOUTH ONCE DAILY. - uxiycrk-kngtdqoij-cbfzjld D3 (CALCIUM 500+D) 500 mg(1,250mg) -200 unit [...] [1003] 05/07/2005 07/12/2021 INJURY TRUNK SITE NEC [[id number]] 01/16/2006 07/01/2007 Anemia in chronic kidney disease [...] [facility]-09[facility] ([id number]) 1940 F Date Time Provider Department 11/09/23 9:20 AM MIRYAM OROZCO FAMPWS During your visit today, we recorded the following information about you: Pulse Respiration Blood pressure Weight 104/minute 16/minute 106/60 99 kg Miryam Orozco APRN.MRI MANAGER 11/09/2023 12:07 PM Signed This is a [...] Was hospitalized recently due to fecal impaction, [facility]. Doing well since discharge. Taking Miralax daily. [...] and thrombophlebitis of femoral vein (deep) (superficial) ([facility]) No date: Unspecified sleep apnea PAST SURGICAL HISTORY 04/2004,05/11: ANESTHESIA HERNIA REPAIR LOWER ABDOMEN NOS Comment: gortex put in on 05/11 then taken out06/08 1990: ARTHRP TOMMY CONDYLEANDPLATU MEDIALANDLAT COMPARTMENTS Comment: bilateral total knee s(Racine) 10/24/04 : ARTHRP TOMMY CONDYLEANDPLATU MEDIALANDLAT COMPARTMENTS Comment: bilateral total knee revisions No date: DELIVERY ONLY Comment: , low cervical No date: CHOLECYSTECTOMY 11/17/2017: COLONOSCOPY FLX DX W/COLLJ SPEC WHEN PFRMD Comment: Colonoscopy 02/17/07: DEBRIDEMENT SUBCUTANEOUS TISSUE 20 SQ CM/< Comment: LEFT LEG [id number]: DEBRIDEMENT SUBCUTANEOUS TISSUE 20 SQ CM/< Comment: LEFT LEG [id number]: DEBRIDEMENT SUBCUTANEOUS TISSUE 20 SQ CM/< Comment: LEFT LEG [id number]: DEBRIDEMENT SUBCUTANEOUS TISSUE 20 SQ CM/< Comment: LEFT LEG [id number]: DEBRIDEMENT SUBCUTANEOUS TISSUE 20 SQ CM/< Comment: [...] (ASPIRIN, ENTER (more content not included)... Normal [facility] CNCOon 10-28-2023 CNCO Letter Text Normal [facility] CNPNon 10-28-2023 CNPN Telephone (AGSPHWG) MARI LOPEZ ([id number]) 1940 F Date Time Provider Department 10/28/23 [...] No 9. Does this procedure require a milk pickup driver? Yes If yes, has patient been notified that a milk pickup driver is needed and must be present [...] 24 hr tablet Take by mouth. - Aanqprnedwv-Wneunsxzw-Cfq C-Mn (GLUCOSAMINE CHONDROITIN MAXSTR) 500-400 mg cap Take 1 capsule by mouth three times daily. - COMPOUNDED PRESCRIPTION Stair lift - DAILY-LUISITO tablet TAKE 1 TABLET BY MOUTH ONCE DAILY. - rnaayup-msjckfbdq-nzuvhfj D3 (CALCIUM 500+D) 500 mg(1,250mg) -200 unit [...] content not included)... Normal [facility] [place] [facility] ([id number]) 1940 F Date Time Provider Department 10/27/23 [facility] During your visit today, we recorded the [...] other than patient: n/a Best contact number: [phone] Thank you, Francine Nolvia October 27, 2023 4:09 PM Gonzalo Holland [...] 24 hr tablet Take by mouth. - Glxatnejpxu-Jnkhrktkk-Jkp C-Mn (GLUCOSAMINE CHONDROITIN MAXSTR) 500-400 mg cap Take 1 capsule by mouth three times daily. - COMPOUNDED PRESCRIPTION Stair lift - DAILY-LUISITO tablet TAKE 1 TABLET BY MOUTH ONCE DAILY. - hsutqgn-earkbdrzk-cjhhwwa D3 (CALCIUM 500+D) 500 mg(1,250mg) -200 unit [...] not included)... Normal [facility] CNPNon 08-28-2023 CNPN Telephone (SPAGBA) MARI LOPEZ ([id number]) 1940 F Date Time Provider Department 08/28/23 ROQUE DELGADO During your visit today, we [...] 24 hr tablet Take by mouth. - Fcioyzbechy-Dkgiqbwez-Sec C-Mn (GLUCOSAMINE CHONDROITIN MAXSTR) 500-400 mg cap Take 1 capsule by mouth three times daily. - COMPOUNDED PRESCRIPTION Stair lift - DAILY-LUISITO tablet TAKE 1 TABLET BY MOUTH ONCE DAILY. - dqdhklr-zkuwopraz-ffdfhya D3 (CALCIUM 500+D) 500 mg(1,250mg) -200 unit [...] [1003] 05/07/2005 07/12/2021 INJURY TRUNK SITE NEC [[id number]] 01/16/2006 07/01/2007 Anemia in chronic kidney disease [...] Encounter Status:Closed by MEHDI VALDIVIA on 08/28/23 [facility] CNPLuz Maria 08-27-2023 CNPN Telephone (AGSPINE3) MARI LOPEZ ([id number]) 1940 F Date Time Provider Department 08/27/23 [facility] During your visit today, we recorded the following information about you: Sofía Crowe 08/27/2023 3:02 PM Signed ----- Message from Aaliyah Hoffman sent at 08/27/2023 2:59 PM EDT ----- Regarding: Spine/Fbiy-Ohs-Vfityewfi for Shoulder Patient: Mari Lopez Date of : 1940 Primary Care Provider: Lizy Capone MD Patient has been identified by name and Date of (Y/N): y Patient: Mari Lopez Date of : 1940 Provider for this encounter: Lizy Capone MD Reason for the call/escalation: Patient is wanting to do R shoulder injection with delgado Was Patient Referred to [facility]/Seek Emergency Treatment (Y/N): n/a Did Patient Agree (Y/N): n/a Was An Attempt Made To Transfer The Patient To The Office (Y/N): n/a Were You Able To Reach Someone At The Office (Y/N): n/a If Yes - Patient Was Transferred To (Caregivers Name): n/a If No - Which [facility] Leadership Rotary Driller Did You Speak With Regarding This Patient: n/a Was an appointment scheduled (Y/N): n Reason patient was requesting visit (RFV/signs and symptoms/diagnosis) : injection Person calling if other than patient: n/a Return call to if other than patient: n/a Best contact number: [phone] Thank you, Aaliyah Hoffman August 27, 2023 [...] 24 hr tablet Take by mouth. - Ojwpxqomfdr-Sfmcgielq-Sxd C-Mn (GLUCOSAMINE CHONDROITIN MAXSTR) 500-400 mg cap Take 1 capsule by mouth three times daily. - COMPOUNDED PRESCRIPTION Stair lift - DAILY-LUISITO tablet TAKE 1 TABLET BY MOUTH ONCE DAILY. - ayaneor-kfaaslpkc-eyarqur D3 (CALCIUM 500+D) 500 mg(1,250mg) -200 unit [...] Auto (Unsp spec) [#/Vol] 1.80 10*3/uL 0.83-4.51 [facility] Automated lymphocyte count a s percentage of total leukocytesOrdered By: Ralph Haynes on 06-09-2023 Lymphocytes/100 WBC Auto (Unsp spec) 39.0 % 19-41 [facility] Basophil percentageOrdered B y: Ralph Haynes on 06-09-2023 Basophil percentage 4.2 mg/dL 2.5-4.9 [facility] Basophils/100 WBC (Bld) 0.7 % 0-1 [facility] Chloride [Moles/Vol] 118 mmol/L 98-107 [facility] Eosinophils/100 WBC (Bld) 8.5 % 0-5 [facility] Glucose [Mass/Vol] 83 mg/dL 74-106 [facility] Hemoglobin (Bld) [Mass/Vol] 10.2 g/dL 12.0-15.0 [facility] Monocytes/100 WBC (Bld) 8.9 % 0-10 [facility] Neutrophils (Bld) [#/Vol] 2.0 10*3/uL 2.0-7.7 [facility] Neutrophils/100 WBC (Bld) 42.7 % 47-70 [facility] Potassium [Moles/Vol] 5.0 mmol/L 3.5-5.1 [facility] Sodium [Moles/Vol] 140 mmol/L 136-145 [facility] WBC (Bld) [#/Vol] 4.6 10*3/uL 4.4-11.0 [facility] Determination of erythrocyte mean corpuscular volume (MCV)Ordered By: Ralph Haynes on 06-09-2023 MCV (RBC) [Entitic vol] 108.0 fL 81-99 [facility] Erythrocyte distribution wid th ratioOrdered By: Ralph Haynes on 06-09-2023 Erythrocyte distribution width (RBC) [Ratio] 13.7 % 11.6-14.6 [facility] Erythrocyte distribution wid th standard deviationOrdered By: Ralph Haynes on 06-09-2023 Erythrocyte distribution width (RBC) [Entitic vol] 54.6 fL 35.1-43.9 [facility] Hematocrit Auto (Bld) [Volum e fraction]Ordered By: Ralph Haynes on 06-09-2023 Hematocrit (Bld) [Volume fraction] 33.6 % 37-47 [facility] Immature granulocytes/100 WB C Auto (Bld)Ordered By: Ralph Haynes on 06-09-2023 Immature granulocytes/100 WBC (Bld) 0.200 % 0.0-0.9 [facility] Comment on above: IG% - Immature Granu locytes (promyelocytes, myelocytes and metamyelocytes) > 1% indicates that a LEFT SHIFT is Present. Laboratory - Chemistry and C hemistry - challengeOrdered By: Ralph Haynes on 06-09-2023 CO2 [Moles/Vol] 18.0 mmol/L 21.0-32.0 [facility] Magnesium [Mass/Vol] 2.5 mg/dL 1.6-2.6 [facility] Urea nitrogen/Creatinine [Mass ratio] 36.2 mg/mg 10-20 [facility] Laboratory - Hematology and Cell countsOrdered By: Ralph Haynes on 06-09-2023 MCH (RBC) [Entitic mass] 32.8 pg 27.0-32.0 [facility] MCHC (RBC) [Mass/Vol] 30.4 g/dL 32-36 [facility] Nucleated RBC/100 WBC (Bld) [Ratio] 0 % 0-5 [facility] Platelet mean volume (Bld) [Entitic vol] 12.6 fL 6.2-12.0 [facility] Platelets (Bld) [#/Vol] 188 10*3/uL 150-450 [facility] No Panel InformationOrdered By: Ralph Haynes on 06-09-2023 Estimated Creatinine Clearance Calc 30.22 ml/min [facility] Estimated GFR (MDRD) Amer 39 mL/min >60 [facility] Comment on above: GFR Calc Estimated GFR (MDRD) Non-Af Amer 32 mL/min >60 [facility] Comment on above: Non- GFR Calc RBC Auto (Bld) [#/Vol]Ordere d By: Ralph Haynes on 06-09-2023 RBC (Bld) [#/Vol] 3.11 10*6/uL 4.2-5.4 [facility] Serum or plasma calcium farheen urement (mass/volume)Ordered By: Ralph Haynes on 06-09-2023 Calcium [Mass/Vol] 8.2 mg/dL 8.5-10.1 [facility] Serum or plasma creatinine m easurement (mass/volume)Ordered By: Ralph Haynes on 06-09-2023 Creatinine [Mass/Vol] 1.63 mg/dL 0.55-1.02 [facility] Comment on above: The validity of the calculated GFR & GFRAA in patients over 70 years has not been determined. Clinical correlation is essential. Serum or plasma urea nitroge n measurement (mass/volume)Ordered By: Ralph Haynes on 06-09-2023 Urea nitrogen [Mass/Vol] 59 mg/dL 7-18 [facility] Thin prep Papanicolaou smear with manual screeningOrdered By: Ralph Haynes on 06-09-2023 Thin prep Papanicolaou smear with manual screening 4 5-15 [facility] Basophil percentageOrdered B y: Ralph Smith on 06-08-2023 Bilirubin [Mass/Vol] 0.30 mg/dL 0.20-1.00 [facility] Comment on above: For patients on eltr ombopag therapy, use of Dimension [place] TBIL is not recommended. Protein [Mass/Vol] 6.5 g/dL 6.4-8.2 [facility] Laboratory - Chemistry and C hemistry - challengeOrdered By: Ralph Smith on 06-08-2023 Albumin/Globulin [Mass ratio] 0.9 {ratio} 0.9-2.4 [facility] ALP [Catalytic activity/Vol] 82 U/L 45-117 [facility] ALT [Catalytic activity/Vol] 26 U/L 13-56 [facility] Globulin (S) [Mass/Vol] 3.4 g/dL 2.2-4.2 [facility] Serum or plasma thyroid stim ulating hormone (TSH) measurement (units/volume)Ordered By: Ralph Smith on 06-08-2023 TSH Qn 5.75 uIU/mL 0.358-3.74 [facility] Thin prep Papanicolaou smear with manual screeningOrdered By: Ralph Smith on 06-08-2023 Thin prep Papanicolaou smear with manual screening 3.1 g/dL 3.2-5.0 [facility] Thin prep Papanicolaou smear with manual screening 27 U/L 15-37 [facility] Absolute lymphocyte countOrd ered By: Weston Delacruz on 06-07-2023 Lymphocytes Auto (Unsp spec) [#/Vol] 1.14 10*3/uL 0.83-4.51 [facility] Automated lymphocyte count a s percentage of total leukocytesOrdered By: Weston Delacruz on 06-07-2023 Lymphocytes/100 WBC Auto (Unsp spec) 14.2 % 19-41 [facility] Basophil percentageOrdered B y: Weston Delacruz on 06-07-2023 Basophils/100 WBC (Bld) 1.0 % 0-1 [facility] Bilirubin [Mass/Vol] 0.40 mg/dL 0.20-1.00 [facility] Comment on above: For patients on eltr ombopag therapy, use of [place] TBIL is not recommended. Chloride [Moles/Vol] 112 mmol/L 98-107 [facility] Eosinophils/100 WBC (Bld) 3.9 % 0-5 [facility] Glucose [Mass/Vol] 102 mg/dL 74-106 [facility] Comment on above: Fasting Glucose resu lt from 100 to 125 mg/dL suggests IMPAIRED HOMEOSTASIS per A.D.A. criteria. Hemoglobin (Bld) [Mass/Vol] 12.6 g/dL 12.0-15.0 [facility] Monocytes/100 WBC (Bld) 5.8 % 0-10 [facility] Neutrophils (Bld) [#/Vol] 6.0 10*3/uL 2.0-7.7 [facility] Neutrophils/100 WBC (Bld) 74.9 % 47-70 [facility] Potassium [Moles/Vol] 4.6 mmol/L 3.5-5.1 [facility] Comment on above: Moderate Hemolysis, Result may be falsely increased. Protein [Mass/Vol] 7.6 g/dL 6.4-8.2 [facility] Sodium [Moles/Vol] 139 mmol/L 136-145 [facility] WBC (Bld) [#/Vol] 8.1 10*3/uL 4.4-11.0 [facility] Determination of erythrocyte mean corpuscular volume (MCV)Ordered By: Weston Delacruz on 06-07-2023 MCV (RBC) [Entitic vol] 107.3 fL 81-99 [facility] Erythrocyte distribution wid th ratioOrdered By: Weston Delacruz on 06-07-2023 Erythrocyte distribution width (RBC) [Ratio] 13.7 % 11.6-14.6 [facility] Erythrocyte distribution wid th standard deviationOrdered By: Weston Delacruz on 06-07-2023 Erythrocyte distribution width (RBC) [Entitic vol] 54.8 fL 35.1-43.9 [facility] Hematocrit Auto (Bld) [Volum e fraction]Ordered By: Weston Delacruz on 06-07-2023 Hematocrit (Bld) [Volume fraction] 41.1 % 37-47 [facility] Immature granulocytes/100 WB C Auto (Bld)Ordered By: Weston Delacruz on 06-07-2023 Immature granulocytes/100 WBC (Bld) 0.200 % 0.0-0.9 [facility] Comment on above: IG% - Immature Granu locytes (promyelocytes, myelocytes and metamyelocytes) > 1% indicates that a LEFT SHIFT is Present. Laboratory - Chemistry and C hemistry - challengeOrdered By: Weston Delacruz on 06-07-2023 Albumin/Globulin [Mass ratio] 0.9 {ratio} 0.9-2.4 [facility] ALP [Catalytic activity/Vol] 82 U/L 45-117 [facility] ALT [Catalytic activity/Vol] 23 U/L 13-56 [facility] CO2 [Moles/Vol] 20.0 mmol/L 21.0-32.0 [facility] Globulin (S) [Mass/Vol] 3.9 g/dL 2.2-4.2 [facility] Urea nitrogen/Creatinine [Mass ratio] 36.0 mg/mg 10-20 [facility] Laboratory - Hematology and Cell countsOrdered By: Weston Delacruz on 06-07-2023 MCH (RBC) [Entitic mass] 32.9 pg 27.0-32.0 [facility] MCHC (RBC) [Mass/Vol] 30.7 g/dL 32-36 [facility] Nucleated RBC/100 WBC (Bld) [Ratio] 0 % 0-5 [facility] Platelet mean volume (Bld) [Entitic vol] 12.5 fL 6.2-12.0 [facility] Platelets (Bld) [#/Vol] 248 10*3/uL 150-450 [facility] No Panel InformationOrdered By: Weston Delacruz on 06-07-2023 Estimated Creatinine Clearance Calc 19.95 ml/min [facility] Estimated GFR (MDRD) Amer 25 mL/min >60 [facility] Comment on above: GFR Calc Estimated GFR (MDRD) Non-Af Amer 20 mL/min >60 [facility] Comment on above: Non- GFR Calc RBC Auto (Bld) [#/Vol]Ordere d By: Weston Delacruz on 06-07-2023 RBC (Bld) [#/Vol] 3.83 10*6/uL 4.2-5.4 [facility] Serum or plasma calcium farheen urement (mass/volume)Ordered By: Wseton Delacruz on 06-07-2023 Calcium [Mass/Vol] 9.3 mg/dL 8.5-10.1 [facility] Serum or plasma creatinine m easurement (mass/volume)Ordered By: Weston Delacruz on 06-07-2023 Creatinine [Mass/Vol] 2.42 mg/dL 0.55-1.02 [facility] Comment on above: The validity of the calculated GFR & GFRAA in patients over 70 years has not been determined. Clinical correlation is essential. Serum or plasma urea nitroge n measurement (mass/volume)Ordered By: Weston Delacruz on 06-07-2023 Urea nitrogen [Mass/Vol] 87 mg/dL 7-18 [facility] Thin prep Papanicolaou smear with manual screeningOrdered By: Weston Delacruz on 06-07-2023 Thin prep Papanicolaou smear with manual screening 3.7 g/dL 3.2-5.0 [facility] Thin prep Papanicolaou smear with manual screening 23 U/L 15-37 [facility] Comment on above: Moderate Hemolysis, Result may be falsely increased. Thin prep Papanicolaou smear with manual screening 7 5-15 [facility] CNCOon 06-04-2023 CNCO Letter Text [facility] CNPNon 06-04-2023 CNPN Telephone (SPAGWO) MARI LOPEZ ([id number]) 1940 F Date Time Provider Department 06/04/23 [...] Yes 9. Does this procedure require a milk pickup driver? Yes If yes, has patient been notified that a milk pickup driver is needed and must be present [...] to take for RFA. Instructed patient to pharmacy picking technician and bring to appointment as it must be taken under the supervision of our clinical staff. Also instructed patient to arrive 45 minutes early to appointment and that milk pickup driver must stay for the entirety of [...] Date Reviewed: 06/02/2023 Reviewed by: Rebekah Bobo APRN.MRI MANAGER - Fully Assessed Reason for Visit: Injection [...] 24 hr tablet Take by mouth. - Znrtsxoaixq-Uxvksfblw-Fwx C-Mn (GLUCOSAMINE CHONDROITIN MAXSTR) 500-400 mg cap Take 1 capsule by mouth three times daily. - COMPOUNDED PRESCRIPTION Stair lift - DAILY-LUISITO tablet TAKE 1 TABLET BY MOUTH ONCE DAILY. - tdjaczq-jgnlsqpst-turgvbc D3 (CALCIUM 500+D) 500 mg(1,250mg) -200 unit per tablet Take 1 tablet by mouth twice daily with meals. - vitamin b comple (more content not included)... [facility] [place] 05-20-2023 JCN Telephone (AGSPINE3) MARI LOPEZ ([id number]) 1940 F Date Time Provider Department 05/20/23 [...] 24 hr tablet Take by mouth. - Riujboauzhx-Cztmehdnh-Jdm C-Mn (GLUCOSAMINE CHONDROITIN MAXSTR) 500-400 mg cap Take 1 capsule by mouth three times daily. - COMPOUNDED PRESCRIPTION Stair lift - DAILY-LUISITO tablet TAKE 1 TABLET BY MOUTH ONCE DAILY. - alyrieq-sbxgyqhcm-wzomqdx D3 (CALCIUM 500+D) 500 mg(1,250mg) -200 unit [...] [1003] 05/07/2005 07/12/2021 INJURY TRUNK SITE NEC [[id number]] 01/16/2006 07/01/2007 Anemia in chronic kidney disease [...] Encounter Status:Closed by JORJE NAGEL on 05/20/23 [facility] US OTHER-INJECTION (POC) DONATO USE ONLYon 05-18-2023 [facility] CNCOon 04-16-2023 CNCO Letter Text [facility] CNOVon 04-16-2023 CNOV Office Visit (SPAGWO ) MARI LOPEZ ([id number]) 1940 F Date Time Provider Department 04/16/23 8:15 AM ROQUE DELGADO During your visit today, we recorded the following information about you: Pulse Respiration Weight 73/minute 16/minute 98.9 kg Roque Delgado MD 04/16/2023 8:43 AM Signed [facility] Today's Date: 04/16/2023 Last visit: 01/15/2023 [...] current dose Flexeril 10mg TID PRN Functional Hinduism: No changes-continue current regimen Additional Studies: X-ray [...] - Initial HPI (Obtained by Avis Marrufo APRN.CNP ). From 03/2022 - She previously inquired [...] content not included)... [facility] [place] 04-16-2023 CJN Telephone (SPAGWO) JOHNMARI ([id number]) 1940 F Date Time Provider Department 04/16/23 ROQUE DELGADO During your visit today, we recorded the following information about you: Haley Jennifer 04/16/2023 8:47 AM Signed Procedure(s) being scheduled: [...] No 9. Does this procedure require a milk pickup driver? Yes If yes, has patient been notified that a milk pickup driver is needed and must be present [...] 24 hr tablet Take by mouth. - Hvwbwvirurq-Towwlmjlo-Jyb C-Mn (GLUCOSAMINE CHONDROITIN MAXSTR) 500-400 mg cap Take 1 capsule by mouth three times daily. - COMPOUNDED PRESCRIPTION Stair lift - DAILY-LUISITO tablet TAKE 1 TABLET BY MOUTH ONCE DAILY. - apoasvp-orabwqgyp-krynivt D3 (CALCIUM 500+D) 500 mg(1,250mg) -200 unit [...] and Lateralon IMPRESSION: No acute radiographic abnormality. Medicare Specialist: PSCB Transcribe Date/Time: Mar 31 2023 11:37A Dictated by : JOSHUA BURNETT MD This examination was interpreted and the report reviewed and electronically signed by: JOSHUA BURNETT MD on Mar 31 2023 11:37AM [facility] DIVISION OF RADIOLOGY * * *Final Report* [...] the thoracic spine. DIVISION OF RADIOLOGY Provider, [facility] - 03/31/2023 * * *Final Report* * [...] spine. IMPRESSION IMPRESSION: No acute radiographic abnormality. Medicare Specialist: CHEIKH Transcribe Date/Time: Mar 31 2023 11:37A Dictated by : JOSHUA BURNETT MD This examination was interpreted and the report reviewed and electronically signed by: JOSHUA BURNETT MD on Mar 31 2023 11:37AM EST [facility] Radiology Study observation (narrative) [facility] XR Chest PA and LateralOrder ed By: [facility] Provider on 03-31-2023 [facility] CNOVon 01-15-2023 CNOV Office Visit (SPAGWO ) MARI LOPEZ ([id number]) 1940 F Date Time Provider Department 01/15/23 8:30 AM ROQUE DELGADO SPAGWO During your visit today, we recorded the following information about you: Pulse Respiration 71/minute 18/minute Roque Delgado MD 01/15/2023 8:58 AM Signed [facility] Name: Mari Lopez : 1940 Purpose: [...] content not included)... [facility] [place] 01-15-2023 [facility] Telephone (SPAGWO) JOHNMARI ([id number]) 1940 F Date Time Provider Department 01/15/23 ROQUE DELGADO During your visit today, we [...] No 9. Does this procedure require a milk pickup driver? No If yes, has patient been notified that a milk pickup driver is needed and must be present [...] CAPSULE BY MOUTH THREE TIMES DAILY. - fsegbjk-neyufobie-yormeqy D3 (CALCIUM 500+D) 500 mg(1,250mg) -200 unit [...] 1 tablet by mouth every afternoon. - Lobcsdejeyu-Vrcyydbki-Erb C-Mn (GLUCOSAMINE CHONDROITIN MAXSTR) 500-400 mg cap [...] LIMITED 2V AP/TR UE AP LEFTon 01-15-2023 [facility] XR SHOULDER [id number] AP/BRENDAN E AP RIGHTon 01-15-2023 [facility] Basophil percentageOrdered B y: Gautam Hardy on 10-15-2022 Basophil percentage 4.2 mg/dL 2.5-4.[facility] [Moles/Vol] 110 mmol[facility]L 98-107 [facility] Glucose [Mass/Vol] 83 mg/dL 74-106 [facility] Potassium [Moles/Vol] 4.2 mmol/L 3.5-5.1 [facility] Sodium [Moles/Vol] 141 mmol/L 136-145 [facility] Laboratory - Chemistry and C hemistry - challengeOrdered By: Gautam Hardy on 10-15-2022 CO2 [Moles/Vol] 25.0 mmol/L 21.0-32.0 [facility] Urea nitrogen/Creatinine [Mass ratio] 25.4 mg/mg 10-20 [facility] No Panel InformationOrdered By: Gautam Hardy on 10-15-2022 Estimated GFR (MDRD) Amer 46 mL/min >60 [facility] Comment on above: GFR Calc Estimated GFR (MDRD) Non-Af Amer 38 mL/min >60 [facility] Comment on above: Non- GFR Calc Serum or plasma albumin farheen urement (mass/volume)Ordered By: Gautam Hardy on 10-15-2022 Albumin [Mass/Vol] 3.1 g/dL 3.2-5.0 [facility] Serum or plasma calcium farheen urement (mass/volume)Ordered By: Gautam Hardy on 10-15-2022 Calcium [Mass/Vol] 8.4 mg/dL 8.5-10.1 [facility] Serum or plasma creatinine m easurement (mass/volume)Ordered By: Gautam Hardy on 10-15-2022 Creatinine [Mass/Vol] 1.42 mg/dL 0.55-1.02 [facility] Comment on above: The validity of the calculated GFR & GFRAA in patients over 70 years has not been determined. Clinical correlation is essential. Serum or plasma urea nitroge n measurement (mass/volume)Ordered By: Gautam Hardy on 10-15-2022 Urea nitrogen [Mass/Vol] 36 mg/dL 7-18 [facility] XR FOOT GENERAL 3V AP/LAT/OB L RIGHTon 07-31-2022 [facility] Absolute lymphocyte countOrd ered By: Dr. Jackson on 07-25-2022 Lymphocytes Auto (Unsp spec) [#/Vol] 1.41 10*3/uL 0.83-4.51 [facility] Basophil percentageOrdered B y: Dr. Jackson on 07-25-2022 Basophils/100 WBC (Bld) 0.8 % 0-1 [facility] Chloride [Moles/Vol] 110 mmol/L 98-107 [facility] Eosinophils/100 WBC (Bld) 3.4 % 0-5 [facility] Glucose [Mass/Vol] 92 mg/dL 74-106 [facility] Neutrophils (Bld) [#/Vol] 4.4 10*3/uL 2.0-7.7 [facility] Neutrophils/100 WBC (Bld) 67.6 % 47-70 [facility] Potassium [Moles/Vol] 4.4 mmol/L 3.5-5.1 [facility] Comment on above: Slight Hemolysis, Re sult may be falsely increased. Sodium [Moles/Vol] 139 mmol/L 136-145 [facility] WBC (Bld) [#/Vol] 6.5 10*3/uL 4.4-11.0 [facility] Blood erythrocytes count (nu mber/volume)Ordered By: Dr. Jackson on 07-25-2022 RBC (Bld) [#/Vol] 3.79 10*6/uL 4.2-5.4 [facility] Blood hemoglobin measurement (mass/volume)Ordered By: Dr. Jackson on 07-25-2022 Hemoglobin (Bld) [Mass/Vol] 12.8 g/dL 12.0-15.0 [facility] Blood lymphocytes/100 leukoc ytesOrdered By: Dr. Jackson on 07-25-2022 Lymphocytes/100 WBC (Bld) 21.7 % 19-41 [facility] Blood monocytes/100 leukocyt esOrdered By: Dr. Jackson on 07-25-2022 Monocytes/100 WBC (Bld) 6.2 % 0-10 [facility] Blood platelet mean volumeOr dered By: Dr. Jackson on 07-25-2022 Platelet mean volume (Bld) [Entitic vol] 12.8 fL 6.2-12.0 [facility] Determination of erythrocyte mean corpuscular volume (MCV)Ordered By: Dr. Jackson on 07-25-2022 MCV (RBC) [Entitic vol] 108.4 fL 81-99 [facility] Hematocrit Auto (Bld) [Volum e fraction]Ordered By: Dr. Jackson on 07-25-2022 Hematocrit (Bld) [Volume fraction] 41.1 % 37-47 [facility] Laboratory - Chemistry and C hemistry - challengeOrdered By: Dr. Jackson on 07-25-2022 CO2 [Moles/Vol] 29.0 mmol/L 21.0-32.0 [facility] Urea nitrogen/Creatinine [Mass ratio] 28.7 mg/mg 10-20 [facility] Laboratory - Hematology and Cell countsOrdered By: Dr. Jackson on 07-25-2022 Erythrocyte distribution width (RBC) [Entitic vol] 51.3 fL 35.1-43.9 [facility] Erythrocyte distribution width (RBC) [Ratio] 12.8 % 11.6-14.6 [facility] Immature granulocytes/100 WBC (Bld) 0.300 % 0.0-0.9 [facility] Comment on above: IG% - Immature Granu locytes (promyelocytes, myelocytes and metamyelocytes) > 1% indicates that a LEFT SHIFT is Present. MCH (RBC) [Entitic mass] 33.8 pg 27.0-32.0 [facility] Nucleated RBC/100 WBC (Bld) [Ratio] 0 % 0-5 [facility] MCHC Auto (RBC) [Mass/Vol]Or dered By: Dr. Jackson on 07-25-2022 MCHC (RBC) [Mass/Vol] 31.1 g/dL 32-36 [facility] No Panel InformationOrdered By: Dr. Jackson on 07-25-2022 Estimated GFR (MDRD) Amer 51 mL/min >60 [facility] Comment on above: GFR Calc Estimated GFR (MDRD) Non-Af Amer 42 mL/min >60 [facility] Comment on above: Non- GFR Calc Platelets bldOrdered By: Dr. Jackson on 07-25-2022 Platelets (Bld) [#/Vol] 219 10*3/uL 150-450 [facility] Serum or plasma calcium farheen urement (mass/volume)Ordered By: Dr. Jackson on 07-25-2022 Calcium [Mass/Vol] 8.8 mg/dL 8.5-10.1 [facility] Serum or plasma creatinine m easurement (mass/volume)Ordered By: Dr. Jackson on 07-25-2022 Creatinine [Mass/Vol] 1.29 mg/dL 0.55-1.02 [facility] Comment on above: The validity of the calculated GFR & GFRAA in patients over 70 years has not been determined. Clinical correlation is essential. Serum or plasma urea nitroge n measurement (mass/volume)Ordered By: Dr. Jackson on 07-25-2022 Urea nitrogen [Mass/Vol] 37 mg/dL 7-18 [facility] Thin prep Papanicolaou smear with manual screeningOrdered By: Dr. Jackson on 07-25-2022 Thin prep Papanicolaou smear with manual screening 0 5-15 [facility] Basophil percentageOrdered B y: Dr. Acosta on 06-11-2022 Chloride [Moles/Vol] 110 mmol/L 98-107 [facility] Glucose [Mass/Vol] 105 mg/dL 74-106 [facility] Comment on above: Fasting Glucose resu lt from 100 to 125 mg/dL suggests IMPAIRED HOMEOSTASIS per A.D.A. criteria. Potassium [Moles/Vol] 4.1 mmol/L 3.5-5.1 [facility] Sodium [Moles/Vol] 142 mmol/L 136-145 [facility] Laboratory - Chemistry and C hemistry - challengeOrdered By: Dr. Acosta on 06-11-2022 CO2 [Moles/Vol] 25.0 mmol/L 21.0-32.0 [facility] Urea nitrogen/Creatinine [Mass ratio] 26.4 mg/mg 10-20 [facility] No Panel InformationOrdered By: Dr. Acosta on 06-11-2022 Estimated GFR (MDRD) Amer 55 mL/min >60 [facility] Comment on above: GFR Calc Estimated GFR (MDRD) Non-Af Amer 46 mL/min >60 [facility] Comment on above: Non- GFR Calc Serum or plasma calcium farheen urement (mass/volume)Ordered By: Dr. Acosta on 06-11-2022 Calcium [Mass/Vol] 8.8 mg/dL 8.5-10.1 [facility] Serum or plasma creatinine m easurement (mass/volume)Ordered By: Dr. Acosta on 06-11-2022 Creatinine [Mass/Vol] 1.21 mg/dL 0.55-1.02 [facility] Comment on above: The validity of the calculated GFR & GFRAA in patients over 70 years has not been determined. Clinical correlation is essential. Serum or plasma urea nitroge n measurement (mass/volume)Ordered By: Dr. Acosta on 06-11-2022 Urea nitrogen [Mass/Vol] 32 mg/dL 7-18 [facility] Thin prep Papanicolaou smear with manual screeningOrdered By: Dr. Acosta on 06-11-2022 Thin prep Papanicolaou smear with manual screening 7 5-15 [facility] Basophil percentageOrdered B y: Dr. Acosta on 05-14-2022 Basophil percentage 2.9 mg/dL 2.5-4.9 [facility] Chloride [Moles/Vol] 111 mmol/L 98-107 [facility] Glucose [Mass/Vol] 117 mg/dL 74-106 [facility] Comment on above: Fasting Glucose resu lt from 100 to 125 mg/dL suggests IMPAIRED HOMEOSTASIS per A.D.A. criteria. Potassium [Moles/Vol] 3.7 mmol/L 3.5-5.1 [facility] Sodium [Moles/Vol] 143 mmol/L 136-145 [facility] Laboratory - Chemistry and C hemistry - challengeOrdered By: Dr. Acosta on 05-14-2022 CO2 [Moles/Vol] 21.0 mmol/L 21.0-32.0 [facility] Urea nitrogen/Creatinine [Mass ratio] 28.0 mg/mg 10-20 [facility] No Panel InformationOrdered By: Dr. Acosta on 05-14-2022 Estimated GFR (MDRD) Amer 39 mL/min >60 [facility] Comment on above: GFR Calc Estimated GFR (MDRD) Non-Af Amer 32 mL/min >60 [facility] Comment on above: Non- GFR Calc Serum or plasma albumin farheen urement (mass/volume)Ordered By: Dr. Acosta on 05-14-2022 Albumin [Mass/Vol] 3.0 g/dL 3.2-5.0 [facility] Serum or plasma calcium farheen urement (mass/volume)Ordered By: Dr. Acosta on 05-14-2022 Calcium [Mass/Vol] 8.8 mg/dL 8.5-10.1 [facility] Serum or plasma creatinine m easurement (mass/volume)Ordered By: Dr. Acosta on 05-14-2022 Creatinine [Mass/Vol] 1.64 mg/dL 0.55-1.02 [facility] Comment on above: The validity of the calculated GFR & GFRAA in patients over 70 years has not been determined. Clinical correlation is essential. Serum or plasma urea nitroge n measurement (mass/volume)Ordered By: Dr. Acosta on 05-14-2022 Urea nitrogen [Mass/Vol] 46 mg/dL 7-18 [facility] No Panel Informationon 05-13 [facility] No Panel Informationon 04-29 [facility] Culture, urineOrdered By: Dr Luis Fernando Acosta on 03-20-2022 Bacteria identified Cx Nom (U) Positive [facility] Basophil percentageOrdered B y: Dr. Acosta on 03-19-2022 Basophil percentage 3.5 mg/dL 2.5-4.9 [facility] Chloride [Moles/Vol] 113 mmol/L 98-107 [facility] Glucose [Mass/Vol] 104 mg/dL 74-106 [facility] Comment on above: Fasting Glucose resu lt from 100 to 125 mg/dL suggests IMPAIRED HOMEOSTASIS per A.D.A. criteria. Potassium [Moles/Vol] 4.6 mmol/L 3.5-5.1 [facility] Comment on above: Slight Hemolysis, Re sult may be falsely increased. Sodium [Moles/Vol] 142 mmol/L 136-145 [facility] Laboratory - Chemistry and C hemistry - challengeOrdered By: Dr. Acosta on 03-19-2022 CO2 [Moles/Vol] 18.0 mmol/L 21.0-32.0 [facility] Urea nitrogen/Creatinine [Mass ratio] 36.2 mg/mg 10-20 [facility] No Panel InformationOrdered By: Dr. Acosta on 03-19-2022 Estimated GFR (MDRD) Amer 47 mL/min >60 [facility] Comment on above: GFR Calc Estimated GFR (MDRD) Non-Af Amer 39 mL/min >60 [facility] Comment on above: Non- GFR Calc Serum or plasma albumin farheen urement (mass/volume)Ordered By: Dr. Acosta on 03-19-2022 Albumin [Mass/Vol] 3.3 g/dL 3.2-5.0 [facility] Serum or plasma calcium farheen urement (mass/volume)Ordered By: Dr. Acosta on 03-19-2022 Calcium [Mass/Vol] 8.8 mg/dL 8.5-10.1 [facility] Serum or plasma creatinine m easurement (mass/volume)Ordered By: Dr. Acosta on 03-19-2022 Creatinine [Mass/Vol] 1.38 mg/dL 0.55-1.02 [facility] Comment on above: The validity of the calculated GFR & GFRAA in patients over 70 years has not been determined. Clinical correlation is essential. Serum or plasma urea nitroge n measurement (mass/volume)Ordered By: Dr. Acosta on 03-19-2022 Urea nitrogen [Mass/Vol] 50 mg/dL 7-18 [facility] Culture, urineOrdered By: Dr Luis Fernando Acosta on 03-08-2022 Bacteria identified Cx Nom (U) Escherichia coli [facility] Basophil percentageOrdered B y: Dr. Jackson on 03-04-2022 Basophil percentage 10-25 SEEN /hpf 0-5 [facility] Basophil percentage 3.7 mg/dL 2.5-4.9 [facility] Bilirubin [Mass/Vol] 0.40 mg/dL 0.20-1.00 [facility] Comment on above: For patients on eltr ombopag therapy, use of Dimension [place] TBIL is not recommended. Chloride [Moles/Vol] 115 mmol/L 98-107 [facility] Cholesterol [Mass/Vol] 162 mg/dL <200 [facility] Comment on above: <200 mg/dL Desirable 200-240 mg/dL Borderline >240 mg/dL High Risk Glucose [Mass/Vol] 102 mg/dL 74-106 [facility] Comment on above: Fasting Glucose resu lt from 100 to 125 mg/dL suggests IMPAIRED HOMEOSTASIS per A.D.A. criteria. Potassium [Moles/Vol] 4.0 mmol/L 3.5-5.1 [facility] Protein [Mass/Vol] 6.8 g/dL 6.4-8.2 [facility] Sodium [Moles/Vol] 145 mmol/L 136-145 [facility] Triglyceride [Mass/Vol] 312 mg/dL <199 [facility] Comment on above: The drugs N-Acetylcy steine and Metamizole may falsely depress this assay.Serum Triglycerides Reference Interval Normal <150 mg/dL Borderline high 150 - 199 mg/dL High 200 - 499 mg/dL Very High > or = 500 mg/dL Bilirubin Test strip Ql (U)O rdered By: Dr. Jackson on 03-04-2022 Bilirubin Ql (U) Negative Negative [facility] Direct bilirubinOrdered By: Dr. Jackson on 03-04-2022 Bilirubin.direct [Mass/Vol] 0.13 mg/dL 0.00-0.30 [facility] Ketones Test strip Ql (U)Ord ered By: Dr. Jackson on 03-04-2022 Ketones Ql (U) Negative Negative [facility] Laboratory - Chemistry and C hemistry - challengeOrdered By: Dr. Jackson on 03-04-2022 ALP [Catalytic activity/Vol] 78 U/L 45-117 [facility] ALT [Catalytic activity/Vol] 25 U/L 13-56 [facility] CO2 [Moles/Vol] 23.0 mmol/L 21.0-32.0 [facility] Globulin (S) [Mass/Vol] 3.8 g/dL 2.2-4.2 [facility] Urea nitrogen/Creatinine [Mass ratio] 26.4 mg/mg 10-20 [facility] Mucus LM Ql (Urine sed)Order ed By: Dr. Jackson on 03-04-2022 Mucus Ql (Urine sed) 0 SEEN /hpf [facility] Nitrite Test strip Ql (U)Ord ered By: Dr. Jackson on 03-04-2022 Nitrite Ql (U) Positive Negative [facility] No Panel InformationOrdered By: Dr. Jackson on 03-04-2022 Estimated GFR (MDRD) Amer 39 mL/min >60 [facility] Comment on above: GFR Calc Estimated GFR (MDRD) Non-Af Amer 32 mL/min >60 [facility] Comment on above: Non- GFR Calc Protein Test strip Ql (U)Ord ered By: Dr. Jackson on 03-04-2022 Protein Ql (U) 15 mg/dl Negative [facility] Serum or plasma albumin farheen urement (mass/volume)Ordered By: Dr. Jackson on 03-04-2022 Albumin [Mass/Vol] 3.0 g/dL 3.2-5.0 [facility] Serum or plasma calcium farheen urement (mass/volume)Ordered By: Dr. Jackson on 03-04-2022 Calcium [Mass/Vol] 8.4 mg/dL 8.5-10.1 [facility] Serum or plasma cholesterol in HDL measurement (mass/volume)Ordered By: Dr. Jackson on 03-04-2022 Cholesterol in HDL [Mass/Vol] 51 mg/dL >40 [facility] Comment on above: The drugs N-Acetylcy steine and Metamizole may falsely depress this assay. Reference Range HDL <40 mg/dL Low HDL Cholesterol HDL >or= 60 mg/dL High HDL Cholesterol Serum or plasma cholesterol in VLDL measurement (mass/volume)Ordered By: Dr. Jackson on 03-04-2022 Cholesterol in VLDL [Mass/Vol] 62 mg/dL 5-40 [facility] Serum or plasma creatinine m easurement (mass/volume)Ordered By: Dr. Jackson on 03-04-2022 Creatinine [Mass/Vol] 1.63 mg/dL 0.55-1.02 [facility] Comment on above: The validity of the calculated GFR & GFRAA in patients over 70 years has not been determined. Clinical correlation is essential. Serum or plasma low density lipoprotein (LDL) cholesterol measurement (mass/volume)Ordered By: Dr. Jackson on 03-04-2022 Cholesterol in LDL [Mass/Vol] 49 mg/dL 0-130 [facility] Serum or plasma urea nitroge n measurement (mass/volume)Ordered By: Dr. Jackson on 03-04-2022 Urea nitrogen [Mass/Vol] 43 mg/dL 7-18 [facility] Squamous epithelial cells de tection in urine sediment by light microscopyOrdered By: Dr. Jackson on 03-04-2022 Epithelial cells.squamous LM Ql (Urine sed) 0-5 SEEN /hpf 5-10 [facility] Thin prep Papanicolaou smear with manual screeningOrdered By: Dr. Jackson on 03-04-2022 Thin prep Papanicolaou smear with manual screening 19 U/L 15-37 [facility] Thin prep Papanicolaou smear with manual screening 7 5-15 [facility] Urine blood detectionOrdered By: Dr. Jackson on 03-04-2022 RBC Ql (U) 25 /ul Negative [facility] RBC Ql (U) 0 SEEN /hpf 0-5 [facility] Urine clarityOrdered By: Dr. Jackson on 03-04-2022 Clarity (U) Sl. Cloudy Clear [facility] Urine color determinationOrd ered By: Dr. Jackson on 03-04-2022 Color (U) Yellow Yellow [facility] Urine glucose detectionOrder ed By: Dr. Jackson on 03-04-2022 Glucose Ql (U) Normal mg/dl Normal [facility] Urine leukocyte esterase det ection by dipstickOrdered By: Dr. Jackson on 03-04-2022 Leukocyte esterase Test strip Ql (U) 500 /ul Negative [facility] Urine pHOrdered By: Dr. Marge castle on 03-04-2022 pH (U) 5.0 [pH] 5.0 - 8.0 [facility] Urine sediment bacteria coun t by microscopy (number/high power field)Ordered By: Dr. Jackson on 03-04-2022 Bacteria LM.HPF (Urine sed) [#/Area] 1 /[HPF] None Seen [facility] Urine specific gravity measu rementOrdered By: Dr. Jackson on 03-04-2022 Specific gravity (U) [Rel density] 1.015 1.002-1.03 0 [facility] Urobilinogen Auto test strip Ql (U)Ordered By: Dr. Jackson on 03-04-2022 Urobilinogen Ql (U) Normal mg/dl Normal [facility] Basophil percentageOrdered B y: Dr. Jackson on 01-28-2022 Chloride [Moles/Vol] 111 mmol/L 98-107 [facility] Glucose [Mass/Vol] 93 mg/dL 74-106 [facility] Potassium [Moles/Vol] 4.2 mmol/L 3.5-5.1 [facility] Sodium [Moles/Vol] 142 mmol/L 136-145 [facility] Laboratory - Chemistry and C hemistry - challengeOrdered By: Dr. Jackson on 01-28-2022 CO2 [Moles/Vol] 25.0 mmol/L 21.0-32.0 [facility] Urea nitrogen/Creatinine [Mass ratio] 30.1 mg/mg 10-20 [facility] No Panel InformationOrdered By: Dr. Jackson on 01-28-2022 Estimated GFR (MDRD) Amer 48 mL/min >60 [facility] Comment on above: GFR Calc Estimated GFR (MDRD) Non-Af Amer 40 mL/min >60 [facility] Comment on above: Non- GFR Calc Serum or plasma calcium farheen urement (mass/volume)Ordered By: Dr. Jackson on 01-28-2022 Calcium [Mass/Vol] 8.7 mg/dL 8.5-10.1 [facility] Serum or plasma creatinine m easurement (mass/volume)Ordered By: Dr. Jackson on 01-28-2022 Creatinine [Mass/Vol] 1.36 mg/dL 0.55-1.02 [facility] Comment on above: The validity of the calculated GFR & GFRAA in patients over 70 years has not been determined. Clinical correlation is essential. Serum or plasma urea nitroge n measurement (mass/volume)Ordered By: Dr. Jackson on 01-28-2022 Urea nitrogen [Mass/Vol] 41 mg/dL 7-18 [facility] Thin prep Papanicolaou smear with manual screeningOrdered By: Dr. Jackson on 01-28-2022 Thin prep Papanicolaou smear with manual screening 6 5-15 [facility] US ABDOMEN COMPLETEon 2021 [facility] Absolute lymphocyte counton 12-26-2021 Lymphocytes Auto (Unsp spec) [#/Vol] 1.35 10*3/uL 0.83-4.51 [facility] Work Phone: Basophil percentageon 2021 Basophils/100 WBC (Bld) 0.7 % 0-1 [facility] Work Phone: Bilirubin [Mass/Vol] 0.30 mg/dL 0.20-1.00 [facility] Work Phone: Comment on above: For patients on eltr ombopag therapy, use of Dimension [place] TBIL is not recommended. Chloride [Moles/Vol] 112 mmol/L 98-107 [facility] Work Phone: [phone] Eosinophils/100 WBC (Bld) 4.3 % 0-5 [facility] Work Phone: Glucose [Mass/Vol] 90 mg/dL 74-106 [facility] Work Phone: [phone] Neutrophils (Bld) [#/Vol] 3.9 10*3/uL 2.0-7.7 [facility] Work Phone: [phone] Neutrophils/100 WBC (Bld) 64.9 % 47-70 [facility] Work Phone: Potassium [Moles/Vol] 4.2 mmol/L 3.5-5.1 [facility] Work Phone: Protein [Mass/Vol] 6.8 g/dL 6.4-8.2 [facility] Work Phone: [phone] Sodium [Moles/Vol] 143 mmol/L 136-145 [facility] Work Phone: WBC (Bld) [#/Vol] 6.0 10*3/uL 4.4-11.0 [facility] Work Phone: Blood erythrocytes count (nu mber/volume)on 12-26-2021 RBC (Bld) [#/Vol] 3.41 10*6/uL 4.2-5.4 [facility] Work Phone: Blood hemoglobin measurement (mass/volume)on 12-26-2021 Hemoglobin (Bld) [Mass/Vol] 11.4 g/dL 12.0-15.0 [facility] Work Phone: Blood lymphocytes/100 leukoc yteson 12-26-2021 Lymphocytes/100 WBC (Bld) 22.4 % 19-41 [facility] Work Phone: [phone] Blood monocytes/100 leukocyt eson 12-26-2021 Monocytes/100 WBC (Bld) 7.5 % 0-10 [facility] Work Phone: Blood platelet mean volumeon 12-26-2021 Platelet mean volume (Bld) [Entitic vol] 12.5 fL 6.2-12.0 [facility] Work Phone: Determination of erythrocyte mean corpuscular volume (MCV)on 12-26-2021 MCV (RBC) [Entitic vol] 109.7 fL 81-99 [facility] Work Phone: Hematocrit Auto (Bld) [Volum e fraction]on 12-26-2021 Hematocrit (Bld) [Volume fraction] 37.4 % 37-47 [facility] Work Phone: Laboratory - Chemistry and C hemistry - challengeon 12-26-2021 ALP [Catalytic activity/Vol] 79 U/L 45-117 [facility] Work Phone: ALT [Catalytic activity/Vol] 20 U/L 13-56 [facility] Work Phone: CO2 [Moles/Vol] 26.0 mmol/L 21.0-32.0 [facility] Work Phone: Globulin (S) [Mass/Vol] 3.7 g/dL 2.2-4.2 [facility] Work Phone: Natriuretic peptide B (Bld) [Mass/Vol] 244.1 pg/mL 0-100 [facility] Work Phone: [phone] Urea nitrogen/Creatinine [Mass ratio] 29.7 mg/mg 10-20 [facility] Work Phone: Laboratory - Hematology and Cell countson 12-26-2021 Erythrocyte distribution width (RBC) [Entitic vol] 54.6 fL 35.1-43.9 [facility] Work Phone: Erythrocyte distribution width (RBC) [Ratio] 13.4 % 11.6-14.6 [facility] Work Phone: [phone] Immature granulocytes/100 WBC (Bld) 0.200 % 0.0-0.9 [facility] Work Phone: Comment on above: IG% - Immature Granu locytes (promyelocytes, myelocytes and metamyelocytes) > 1% indicates that a LEFT SHIFT is Present. MCH (RBC) [Entitic mass] 33.4 pg 27.0-32.0 [facility] Work Phone: Nucleated RBC/100 WBC (Bld) [Ratio] 0 % 0-5 [facility] Work Phone: MCHC Auto (RBC) [Mass/Vol]on 12-26-2021 MCHC (RBC) [Mass/Vol] 30.5 g/dL 32-36 [facility] Work Phone: No Panel Informationon 12-26 CA 125 Antigen 12.5 U/mL 0.0-38.1 [facility] Work Phone: Comment on above: [employer] [place] ectrochemiluminescence Immunoassay(ECLIA)Values obtained with different assay methods or kits cannotbe used interchangeably. Results cannot be interpreted asabsolute evidence of the presence or absence of malignantdisease.Performed at: [facility] [id number] Director: Kevyn Flannery PhD, Phone: [phone] Estimated GFR (MDRD) Amer 45 mL/min >60 [facility] Work Phone: Comment on above: GFR Calc Estimated GFR (MDRD) Non-Af Amer 37 mL/min >60 [facility] Work Phone: Comment on above: Non- GFR Calc Platelets bldon 12-26-2021 Platelets (Bld) [#/Vol] 211 10*3/uL 150-450 [facility] Work Phone: Serum or plasma albumin farheen urement (mass/volume)on 12-26-2021 Albumin [Mass/Vol] 3.1 g/dL 3.2-5.0 [facility] Work Phone: Serum or plasma albumin/glob ulin mass ratioon 12-26-2021 Albumin/Globulin [Mass ratio] 0.8 {ratio} 0.9-2.4 [facility] Work Phone: Serum or plasma calcium farheen urement (mass/volume)on 12-26-2021 Calcium [Mass/Vol] 8.7 mg/dL 8.5-10.1 [facility] Work Phone: Serum or plasma creatinine m easurement (mass/volume)on 09-22-2022 Creatinine [Mass/Vol] 1.45 mg/dL 0.55-1.02 [facility] Work Phone: Comment on above: The validity of the calculated GFR & GFRAA in patients over 70 years has not been determined. Clinical correlation is essential. Serum or plasma urea nitroge n measurement (mass/volume)on 12-26-2021 Urea nitrogen [Mass/Vol] 43 mg/dL 7-18 [facility] Work Phone: Thin prep Papanicolaou smear with manual screeningon 12-26-2021 Thin prep Papanicolaou smear with manual screening 14 U/L 15-37 [facility] Work Phone: Thin prep Papanicolaou smear with manual screening 5 5-15 [facility] Work Phone: Basophil percentageon 2021 Chloride [Moles/Vol] 115 mmol/L 98-107 [facility] Work Phone: Glucose [Mass/Vol] 130 mg/dL 74-106 [facility] Work Phone: Comment on above: Fasting Glucose resu lt greater than or equal to 126 mg/dL suggests DIABETES MELLITUS per A.D.A. criteria. Potassium [Moles/Vol] 4.7 mmol/L 3.5-5.1 [facility] Work Phone: Comment on above: Moderate Hemolysis, Result may be falsely increased. Sodium [Moles/Vol] 144 mmol/L 136-145 [facility] Work Phone: Laboratory - Chemistry and C hemistry - challengeon 09-17-2021 CO2 [Moles/Vol] 22.0 mmol/L 21.0-32.0 [facility] Work Phone: Urea nitrogen/Creatinine [Mass ratio] 29.3 mg/mg 10-20 [facility] Work Phone: No Panel Informationon 09-17 Estimated GFR (MDRD) Amer 47 mL/min >60 [facility] Work Phone: Comment on above: GFR Calc Estimated GFR (MDRD) Non-Af Amer 39 mL/min >60 [facility] Work Phone: Comment on above: Non- GFR Calc Serum or plasma calcium farheen urement (mass/volume)on 09-17-2021 Calcium [Mass/Vol] 8.1 mg/dL 8.5-10.1 [facility] Work Phone: Serum or plasma creatinine m easurement (mass/volume)on 09-17-2021 Creatinine [Mass/Vol] 1.40 mg/dL 0.55-1.02 [facility] Work Phone: Comment on above: The validity of the calculated GFR & GFRAA in patients over 70 years has not been determined. Clinical correlation is essential. Serum or plasma urea nitroge n measurement (mass/volume)on 09-17-2021 Urea nitrogen [Mass/Vol] 41 mg/dL 7-18 [facility] Work Phone: Thin prep Papanicolaou smear with manual screeningon 09-17-2021 Thin prep Papanicolaou smear with manual screening 7 5-15 [facility] Work Phone: Basophil percentageon 2021 Chloride [Moles/Vol] 113 mmol/L 98-107 [facility] Work Phone: Glucose [Mass/Vol] 96 mg/dL 74-106 [facility] Work Phone: Potassium [Moles/Vol] 4.6 mmol/L 3.5-5.1 [facility] Work Phone: Sodium [Moles/Vol] 142 mmol/L 136-145 [facility] Work Phone: Laboratory - Chemistry and C hemistry - challengeon 08-29-2021 CO2 [Moles/Vol] 21.0 mmol/L 21.0-32.0 [facility] Work Phone: Urea nitrogen/Creatinine [Mass ratio] 36.8 mg/mg 10-20 [facility] Work Phone: No Panel Informationon 08-29 Estimated GFR (MDRD) Amer 37 mL/min >60 [facility] Work Phone: Comment on above: GFR Calc Estimated GFR (MDRD) Non-Af Amer 31 mL/min >60 [facility] Work Phone: Comment on above: Non- GFR Calc Serum or plasma calcium farheen urement (mass/volume)on 08-29-2021 Calcium [Mass/Vol] 8.6 mg/dL 8.5-10.1 oste [facility] Work Phone: Serum or plasma creatinine m easurement (mass/volume)on 08-29-2021 Creatinine [Mass/Vol] 1.71 mg/dL 0.55-1.02 [facility] Work Phone: Comment on above: The validity of the calculated GFR & GFRAA in patients over 70 years has not been determined. Clinical correlation is essential. Serum or plasma urea nitroge n measurement (mass/volume)on 08-29-2021 Urea nitrogen [Mass/Vol] 63 mg/dL 7-18 [facility] Work Phone: Thin prep Papanicolaou smear with manual screeningon 08-29-2021 Thin prep Papanicolaou smear with manual screening 8 5-15 [facility] Work Phone: Laboratory - Chemistry and C hemistry - challengeon 08-06-2021 Natriuretic peptide B (Bld) [Mass/Vol] 66.7 pg/mL 0-100 [facility] Work Phone: CT ABD/PEL WO IVCONon 2021 [facility] CBC W Auto Differential pane l (Bld)on 07-16-2021 Abs Immature Gran 0.03 k/uL <0.10 k/uL [facility] Basophils (Bld) [#/Vol] 0.07 10*3/uL <0.11 k/uL [facility] Basophils/100 WBC (Bld) 1.0 % [facility] Differential cell count method Nom (Bld) Auto [facility] Eosinophils (Bld) [#/Vol] 0.29 10*3/uL <0.46 k/uL [facility] Eosinophils/100 WBC (Bld) 4.2 % [facility] Erythrocyte distribution width (RBC) [Ratio] 12.8 % 11.5 - 15.0 % [facility] Hematocrit (Bld) [Volume fraction] 37.9 % 36.0 - 46.0 % [facility] Hemoglobin (Bld) [Mass/Vol] 11.8 g/dL 11.5 - 15.5 g/dL [facility] Immature Gran % 0.4 % [facility] Lymphocytes (Bld) [#/Vol] 2.20 10*3/uL 1.00 - 4.00 k/uL [facility] Lymphocytes/100 WBC (Bld) 32.0 % [facility] MCH (RBC) [Entitic mass] 34.0 pg 26.0 - 34.0 pg [facility] MCHC (RBC) [Mass/Vol] 31.1 g/dL 30.5 - 36.0 g/dL [facility] MCV (RBC) [Entitic vol] 109.2 fL High 80.0 - 100.0 fL [facility] Monocytes (Bld) [#/Vol] 0.54 10*3/uL <0.87 k/uL [facility] Monocytes/100 WBC (Bld) 7.9 % [facility] Neutrophils (Bld) [#/Vol] 3.74 10*3/uL 1.45 - 7.50 k/uL [facility] Neutrophils/100 WBC (Bld) 54.5 % [facility] Nucleated RBC (Bld) [#/Vol] 10*3/uL <0.01 k/uL [facility] Nucleated RBC/100 WBC (Bld) [Ratio] 0.0 /100 WBC [facility] Platelet mean volume (Bld) [Entitic vol] 12.6 fL 9.0 - 12.7 fL [facility] Platelets (Bld) [#/Vol] 232 10*3/uL 150 - 400 k/uL [facility] RBC (Bld) [#/Vol] 3.47 10*6/uL Low 3.90 - 5.20 m/uL [facility] WBC (Bld) [#/Vol] 6.87 10*3/uL 3.70 - 11.00 k/uL [facility] Comprehensive metabolic 2000 panelon 07-16-2021 Albumin [Mass/Vol] 3.9 g/dL 3.9 - 4.9 g/dL [facility] ALP [Catalytic activity/Vol] 64 U/L 34 - 123 U/L [facility] ALT [Catalytic activity/Vol] 13 U/L 7 - 38 U/L [facility] Anion gap [Moles/Vol] 11 mmol/L 9 - 18 mmol/L [facility] AST [Catalytic activity/Vol] 22 U/L 13 - 35 U/L [facility] Bilirubin [Mass/Vol] 0.3 mg/dL 0.2 - 1 .3 mg/dL [facility] Calcium [Mass/Vol] 8.9 mg/dL 8.5 - 10. 2 mg/dL [facility] Chloride [Moles/Vol] 110 mmol/L High 97 - 10 5 mmol/L [facility] CO2 [Moles/Vol] 19 mmol/L Low 22 - 30 mmol/L [facility] Creatinine [Mass/Vol] 1.72 mg/dL High 0.58 - 0.96 mg/dL [facility] Estimated Glomerular Filtration Rate 30 mL/min/1.73m Low >=60 mL/min/1.7 3m [facility] Glucose [Mass/Vol] 77 mg/dL 74 - 99 mg/dL [facility] Potassium [Moles/Vol] 4.4 mmol/L 3.7 - 5.1 mmol/L [facility] Protein [Mass/Vol] 6.8 g/dL 6.3 - 8.0 g/dL [facility] Sodium [Moles/Vol] 140 mmol/L 136 - 144 mmol/L [facility] Urea nitrogen [Mass/Vol] 63 mg/dL High 7 - 21 mg/dL [facility] TSH BLDon 07-16-2021 TSH Qn 3.480 m[IU]/L 0.270 - 4.200 mIU/L [facility] XR RIBS/CHEST 3V AP RIB/OBLS /CXR LEFTon 07-16-2021 [facility] XR Ribs - left Views and Birdie st PAon 07-16-2021 IMPRESSION: Negative ribs. Medicare Specialist: CHEIKH Transcribe Date/Time: Jul 16 2021 2:18P [...] fracture. [id number]_ USE_DIVISIO N OF RADIOLOGY Provider, [facility] - 07/16/2021 * * *Final Report* * [...] nondisplaced rib fracture. IMPRESSION IMPRESSION: Negative ribs. Medicare Specialist: CHEIKH Transcribe Date/Time: Jul 16 2021 2:18P Dictated by : ADELA MILNER MD This examination was interpreted and the report reviewed and electronically signed by: ADELA MILNER MD on Jul 16 2021 2:25PM EST [facility] Radiology Study observation (narrative) [facility] XR Ribs - left Views and Birdie st PAOrdered By: [facility] Provider on 07-16-2021 [facility] Culture, urine Bacteria identified Cx Nom (U) Escherichia coli [facility] Work Phone: Bacteria identified Cx Nom (U) Positive [facility] Work Phone: Vital Signs Date Time Vital Sign Value Performing Clinician Radha haas 11-11-2024 15:11-0400 Body height 157.48 cm Miryam Experticityhof [facility] Work Phone: 3(999)689-809075 [address] [place] [address] 11-11-2024 15:11-0400 Body mass index (BMI) [Ratio] 46.6 kg/m2 Miryam Experticityhof [employer] Work Phone: 3(689)465-479975 [address] [place] [address] 11-11-2024 15:11-0400 Body weight 115.66 kg Miryam Experticityhof [employer] Work Phone: 5(555)580-512675 [address] [place] [address] 11-11-2024 15:11-0400 Diastolic blood pressure 79 mm[Hg] Miryam Tannhof [employer] Work Phone: 8(611)520-426894 [place] [address] 11-11-2024 15:11-0400 Heart rate 109 /min Miryam Experticityhof [employer] Work Phone: 6(137)837-378875 [address] [place] [address] 11-11-2024 15:11-0400 Systolic blood pressure 115 mm[Hg] Miryam Tannhof [employer] Work Phone: 6(126)645-900375 [address] [place] [address] 11-01-2024 09:30-0400 Body temperature 97.6 [degF] Miryam Tannhof [employer] Work Phone: 9(037)597-505597 [address] 11-01-2024 09:30-0400 Diastolic blood pressure 87 mm[Hg] Miryam Tannhof [employer] Work Phone: 9(781)483-303975 [address] [place] [address] 11-01-2024 09:30-0400 Heart rate 102 /min Miryam Experticityhof [employer] Work Phone: 4(517)087-724594 [place] [address] 11-01-2024 09:30-0400 Respiratory rate 17 /min Miryam Serraf [employer] Work Phone: 8(166)817-499094 [place] [address] 11-01-2024 09:30-0400 SaO2% (BldA) [Mass fraction] 96 % Miryam Serraf [facility] Work Phone: 7(739)926-264994 [place] [address] 11-01-2024 09:30-0400 Systolic blood pressure 126 mm[Hg] Miryam Serraf [employer] Work Phone: 3(330)359-686994 [place] [address] 10-30-2024 10:40-0400 Body height 157.48 cm Miryam Serraf [employer] Work Phone: 9(234)777-505794 [place] [address] 10-30-2024 10:40-0400 Body weight 120.3 kg Miryam Serraf [employer] Work Phone: 7(402)271-426094 [place] [address] 10-29-2024 06:34-0400 Body mass index (BMI) [Ratio] 48.4 kg/m2 Miryam Serraf [employer] Work Phone: 0(344)764-946694 [place] [address] 10-29-2024 05:11-0400 Diastolic blood pressure 82 mm[Hg] Miryam Serraf [employer] Work Phone: 7(295)557-120394 [place] [address] 10-29-2024 05:11-0400 Heart rate 108 /min Miryam Serraf [employer] Work Phone: 5(424)015-397194 [place] [address] 10-29-2024 05:11-0400 Respiratory rate 18 /min Miryam Serraf [employer] Work Phone: 3(221)439-280294 [place] [address] 10-29-2024 05:11-0400 SaO2% (BldA) [Mass fraction] 96 % Miryam Serraf [employer] Work Phone: 3(326)517-724294 [place] [address] 10-29-2024 05:11-0400 Systolic blood pressure 98 mm[Hg] Miryam Serraf [facility] Work Phone: 4(402)329-226594 [place] [address] 10-29-2024 05:09-0400 Body temperature 97.8 [degF] Miryam Kimballhof [employer] Work Phone: 1(759)167-854194 [place] [address] 10-29-2024 03:40-0400 Body height 157.48 cm Miryam Orozco [employer] Work Phone: 2(663)241-840694 [place] [address] 10-29-2024 03:40-0400 Body mass index (BMI) [Ratio] 42.3 kg/m2 Miryam Serraf [employer] Work Phone: 4(817)366-874294 [place] [address] 10-29-2024 03:40-0400 Body weight 104.8 kg Miryam Serraf [employer] Work Phone: 1(636)634-811594 [place] [address] 10-26-2024 11:34-0400 Body temperature 97.9 [degF] Miryam Serraf [employer] Work Phone: 4(589)645-443594 [place] [address] 10-26-2024 11:34-0400 Diastolic blood pressure 61 mm[Hg] Miryam Serarf [employer] Work Phone: 1(670)171-185494 [place] [address] 10-26-2024 11:34-0400 Heart rate 87 /min Miryam Serraf [employer] Work Phone: 3(111)903-176794 [place] [address] 10-26-2024 11:34-0400 Respiratory rate 16 /min Miryam Serraf [employer] Work Phone: 4(879)565-927594 [place] [address] 10-26-2024 11:34-0400 SaO2% (BldA) [Mass fraction] 98 % Miryam Serraf [employer] Work Phone: 4(576)456-642194 [place] [address] 10-26-2024 11:34-0400 Systolic blood pressure 110 mm[Hg] Miryam Serraf [employer] Work Phone: 2(282)473-892194 [place] [address] 10-26-2024 10:03-0400 Body mass index (BMI) [Ratio] 49.6 kg/m2 Miryam Serraf [employer] Work Phone: 8(712)449-702094 [place] [address] 10-26-2024 10:03-0400 Body weight 123 kg Miryam Serraf [employer] Work Phone: 7(352)665-978994 [place] [address] 10-26-2024 10:01-0400 Body height 157.48 cm Miryam Serraf [employer] Work Phone: [facility] 10-25-2024 14:13-0400 Body height 157.48 cm Miryampoonam Serraf [employer] Work Phone: [facility] 10-25-2024 14:13-0400 Body mass index (BMI) [Ratio] 46.7 kg/m2 Miryampoonam Kimballhof [employer] Work Phone: [facility] 10-25-2024 14:13-0400 Body weight 116.11 kg Miryampoonam Kimballhof [employer] Work Phone: 7(419)281-268875 [address] [place] [address] 10-25-2024 14:13-0400 Diastolic blood pressure 62 mm[Hg] Miryam Serraf [employer] Work Phone: 0(327)797-754675 [address] [place] [address] 10-25-2024 14:13-0400 Heart rate 119 /min Miryampoonam Kimballhof [employer] Work Phone: 1(938)810-067175 [address] [place] [address] 10-25-2024 14:13-0400 Respiratory rate 18 /min Miryampoonam Serraf [employer] Work Phone: 6(416)284-115475 [address] [place] [address] 10-25-2024 14:13-0400 Systolic blood pressure 111 mm[Hg] Miryam Serraf [employer] Work Phone: [facility] 10-24-2024 13:52-0400 Body mass index (BMI) [Ratio] 48.65 kg/m2 Lizy Capone MD Work Phone: [facility] 10-24-2024 13:52-0400 Body weight 120.66 kg Lizy Capone MD Work Phone: [facility] 10-24-2024 13:52-0400 Diastolic blood pressure 63 mm[Hg] Lizy Capone MD Work Phone: [facility] 10-24-2024 13:52-0400 Heart rate 117 /min Lizy Capone MD Work Phone: [facility] 10-24-2024 13:52-0400 Respiratory rate 18 /min Lizy Capone MD Work Phone: [facility] 10-24-2024 13:52-0400 SaO2% (BldA) [Mass fraction] 96 % Lizy Capone MD Work Phone: [facility] 10-24-2024 13:52-0400 Systolic blood pressure 93 mm[Hg] Lizy Capone MD Work Phone: [facility] 10-24-2024 10:01-0400 Body temperature 98.5 [degF] Miryam Tannhof [employer] Work Phone: [facility] 10-24-2024 10:01-0400 Diastolic blood pressure 74 mm[Hg] Miryam Tannhof [employer] Work Phone: [facility] 10-24-2024 10:01-0400 Heart rate 104 /min Miryam Tannhof [employer] Work Phone: [facility] 10-24-2024 10:01-0400 Respiratory rate 18 /min Miryam Tannhof [employer] Work Phone: [facility] 10-24-2024 10:01-0400 Systolic blood pressure 123 mm[Hg] Miryam Tannhof [employer] Work Phone: [facility] 10-20-2024 11:32-0400 Body temperature 98.4 [degF] Miryam Tannhof [employer] Work Phone: [facility] 10-20-2024 11:32-0400 Diastolic blood pressure 74 mm[Hg] Miryam Tannhof [employer] Work Phone: [facility] 10-20-2024 11:32-0400 Heart rate 96 /min Miryam Tannhof [employer] Work Phone: [facility] 10-20-2024 11:32-0400 Respiratory rate 18 /min Miryam Tannhof [employer] Work Phone: [facility] 10-20-2024 11:32-0400 SaO2% (BldA) [Mass fraction] 96 % Miryam Tannhof [employer] Work Phone: 9(043)842-975594 [place] [address] 10-20-2024 11:32-0400 Systolic blood pressure 125 mm[Hg] Miryampoonam Kimballhof [employer] Work Phone: 8(932)030-450294 [place] [address] 10-18-2024 11:11-0400 Body temperature 97.5 [degF] Miryam Jigarhof [employer] Work Phone: 6(590)433-813494 [place] [address] 10-18-2024 11:11-0400 Diastolic blood pressure 71 mm[Hg] Miryam Jigarhof [employer] Work Phone: 9(147)872-623394 [place] [address] 10-18-2024 11:11-0400 Heart rate 81 /min Miryampoonam Kimballhof [employer] Work Phone: 5(607)735-604694 [place] [address] 10-18-2024 11:11-0400 Respiratory rate 17 /min Miryampoonam Kimballhof [employer] Work Phone: 6(709)935-309294 [place] [address] 10-18-2024 11:11-0400 SaO2% (BldA) [Mass fraction] 98 % Miryampoonam Kimballhof [employer] Work Phone: 5(100)026-552794 [place] [address] 10-18-2024 11:11-0400 Systolic blood pressure 127 mm[Hg] Miryampoonam Kimballhof [employer] Work Phone: 0(053)840-535294 [place] [address] 10-18-2024 06:00-0400 Body mass index (BMI) [Ratio] 49.1 kg/m2 Miryampoonam Kimballhof [employer] Work Phone: 0(856)818-941494 [place] [address] 10-18-2024 06:00-0400 Body weight 120.97 kg Miryampoonam Kimballhof [employer] Work Phone: 8(095)984-453094 [place] [address] 10-16-2024 20:49-0400 Diastolic blood pressure 70 mm[Hg] Miryam Tannhof [employer] Work Phone: 6(424)075-844494 [place] [address] 10-16-2024 20:49-0400 Heart rate 80 /min Miryampoonam Kimballhof [employer] Work Phone: 9(982)102-397194 [place] [address] 10-16-2024 20:49-0400 Systolic blood pressure 136 mm[Hg] Miryam Tannhof [employer] Work Phone: 4(049)887-868975 [address] [place] [address] 10-16-2024 10:34-0400 Body temperature 97.6 [degF] Miryam Serraf [employer] Work Phone: 3(518)888-567894 [place] [address] 10-16-2024 10:34-0400 SaO2% (BldA) [Mass fraction] 96 % Miryam Serraf [facility] Work Phone: 0(848)169-452094 [place] [address] 10-15-2024 09:46-0400 Respiratory rate 18 /min Miryam Serraf [facility] Work Phone: 0(936)855-919094 [place] [address] 10-14-2024 16:40-0400 Body temperature 97.6 [degF] Miryam Serraf [facility] Work Phone: 0(155)117-978994 [place] [address] 10-14-2024 16:40-0400 Diastolic blood pressure 87 mm[Hg] Miryam Serraf [employer] Work Phone: 5(750)725-101094 [place] [address] 10-14-2024 16:40-0400 Heart rate 94 /min Miryam Serraf [facility] Work Phone: 5(859)395-567494 [place] [address] 10-14-2024 16:40-0400 Respiratory rate 18 /min Miryam Serraf [facility] Work Phone: 1(514)998-019094 [place] [address] 10-14-2024 16:40-0400 SaO2% (BldA) [Mass fraction] 96 % Miryam Serraf [facility] Work Phone: 6(141)586-988794 [place] [address] 10-14-2024 16:40-0400 Systolic blood pressure 125 mm[Hg] Miryam Serraf [facility] Work Phone: 9(206)416-852094 [place] [address] 10-14-2024 16:21-0400 Inhaled oxygen flow rate 4 L/min Miryam Serraf [facility] Work Phone: 0(555)589-696194 [place] [address] 10-14-2024 13:52-0400 Body height 157.48 cm Miryam Serrapat [employer] Work Phone: 1(619)753-604394 [place] [address] 10-14-2024 13:52-0400 Body mass index (BMI) [Ratio] 47.5 kg/m2 Miryam Serraf [facility] Work Phone: 2(045)075-675994 [place] [address] 10-14-2024 13:52-0400 Body weight 117.93 kg Miryam Serraf [employer] Work Phone: 2(579)756-216994 [place] [address] 10-14-2024 07:54-0400 Body mass index (BMI) [Ratio] 49.2 kg/m2 Miryam Serraf [employer] Work Phone: 2(730)227-507094 [place] [address] 10-14-2024 07:54-0400 Body weight 122.19 kg Miryam Serraf [employer] Work Phone: 8(455)192-795994 [place] [address] 10-12-2024 16:10-0400 Body temperature 97.8 [degF] Miryam Serraf [employer] Work Phone: 5(598)830-896494 [place] [address] 10-12-2024 16:10-0400 Diastolic blood pressure 67 mm[Hg] Miryam Serraf [employer] Work Phone: 3(476)088-836794 [place] [address] 10-12-2024 16:10-0400 Heart rate 93 /min Miryam Serraf [facility] Work Phone: 5(825)091-043694 [place] [address] 10-12-2024 16:10-0400 Respiratory rate 13 /min Miryam Serraf [facility] Work Phone: 1(892)265-403694 [place] [address] 10-12-2024 16:10-0400 SaO2% (BldA) [Mass fraction] 94 % Miryam Serraf [facility] Work Phone: 4(500)225-194994 [place] [address] 10-12-2024 16:10-0400 Systolic blood pressure 122 mm[Hg] Miryam Serraf [employer] Work Phone: 4(134)202-548894 [place] [address] 10-12-2024 13:35-0400 Body height 154.94 cm Miryam Serraf [employer] Work Phone: 0(134)762-880794 [place] [address] 10-12-2024 13:35-0400 Body mass index (BMI) [Ratio] 56 kg/m2 Miryam Serraf [facility] Work Phone: 6(967)579-094194 [place] [address] 10-12-2024 13:35-0400 Body weight 134.4 kg Miryam Kimballhof [employer] Work Phone: 2(401)295-122475 [address] [place] [address] 10-12-2024 11:36-0400 Body weight 122.19 kg Miryampoonam Kimballhof [employer] Work Phone: 9(259)664-195594 [place] [address] 10-12-2024 08:40-0400 Body temperature 98 [degF] Miryampoonam Kimballhof [employer] Work Phone: 4(020)056-938194 [place] [address] 10-12-2024 08:40-0400 Diastolic blood pressure 65 mm[Hg] Miryampoonam Kimballhof [employer] Work Phone: 3(596)277-936294 [place] [address] 10-12-2024 08:40-0400 Heart rate 111 /min Miryampoonam Kimballhof [employer] Work Phone: 9(133)284-029494 [place] [address] 10-12-2024 08:40-0400 Respiratory rate 18 /min Miryampoonam Kimballhof [employer] Work Phone: 9(355)364-820994 [place] [address] 10-12-2024 08:40-0400 SaO2% (BldA) [Mass fraction] 96 % Miryampoonam Kimballhof [employer] Work Phone: 2(183)453-723994 [place] [address] 10-12-2024 08:40-0400 Systolic blood pressure 109 mm[Hg] Miryampoonam Kimballhof [employer] Work Phone: 6(404)686-471694 [place] [address] 10-11-2024 15:17-0400 Body mass index (BMI) [Ratio] 49.6 kg/m2 Miryampoonam Kimballhof [employer] Work Phone: 3(492)406-273294 [place] [address] 10-10-2024 14:26-0400 Body temperature 97 [degF] Miryampoonam Kimballhof [employer] Work Phone: 6(055)451-439694 [place] [address] 10-10-2024 14:26-0400 Diastolic blood pressure 67 mm[Hg] Miryampoonam Kimballhof [employer] Work Phone: 4(020)664-183894 [place] [address] 10-10-2024 14:26-0400 Heart rate 89 /min Miryampoonam Kimballhof [employer] Work Phone: 6(431)423-948994 [place] [address] 10-10-2024 14:26-0400 Respiratory rate 14 /min Miryam Serraf [employer] Work Phone: 1(925)963-935175 [address] [place] [address] 10-10-2024 14:26-0400 Systolic blood pressure 111 mm[Hg] Miryam Serraf [employer] Work Phone: 4(564)216-855475 [address] [place] [address] 10-04-2024 14:03-0400 Body temperature 97 [degF] Miryam Serraf [employer] Work Phone: 1(042)963-634394 [place] [address] 10-04-2024 14:03-0400 Diastolic blood pressure 66 mm[Hg] Miryam Serraf [facility] Work Phone: 3(598)528-284594 [place] [address] 10-04-2024 14:03-0400 Heart rate 89 /min Miryam Serraf [facility] Work Phone: 9(922)999-766694 [place] [address] 10-04-2024 14:03-0400 Respiratory rate 16 /min Miryam Serraf [facility] Work Phone: 1(028)890-200994 [place] [address] 10-04-2024 14:03-0400 SaO2% (BldA) [Mass fraction] 97 % Miryam Serraf [facility] Work Phone: 1(569)667-668294 [place] [address] 10-04-2024 14:03-0400 Systolic blood pressure 97 mm[Hg] Miryam Serraf [facility] Work Phone: 0(644)580-049394 [place] [address] 10-04-2024 09:00-0400 Inhaled oxygen flow rate 0 L/min Miryam Serraf [facility] Work Phone: 9(788)800-581194 [place] [address] 10-04-2024 04:44-0400 Body mass index (BMI) [Ratio] 48.6 kg/m2 Miryam Serraf [facility] Work Phone: 8(493)392-747194 [place] [address] 10-04-2024 04:44-0400 Body weight 120.8 kg Miryam Serraf [facility] Work Phone: 1(644)674-881194 [place] [address] 10-03-2024 23:25-0400 Body temperature 97.5 [degF] Miryam Serraf [facility] Work Phone: 3(010)709-102694 [place] [address] 10-03-2024 23:25-0400 Diastolic blood pressure 57 mm[Hg] Miryam Serraf [facility] Work Phone: 8(398)506-372694 [place] [address] 10-03-2024 23:25-0400 Heart rate 85 /min Miryam Kimballhof [facility] Work Phone: 4(789)305-674094 [place] [address] 10-03-2024 23:25-0400 Respiratory rate 15 /min Miryam Kimballhof [facility] Work Phone: 2(959)219-189294 [place] [address] 10-03-2024 23:25-0400 SaO2% (BldA) [Mass fraction] 96 % Miryam Serraf [facility] Work Phone: 4(509)349-983894 [place] [address] 10-03-2024 23:25-0400 Systolic blood pressure 111 mm[Hg] Miryam Kimballhof [facility] Work Phone: 1(037)121-708094 [place] [address] 10-03-2024 12:48-0400 Body height 157.48 cm Miryam Serraf [facility] Work Phone: 7(443)045-253594 [place] [address] 10-03-2024 12:48-0400 Body weight 118.3 kg Miryam Kimballhof [facility] Work Phone: 1(123)539-046094 [place] [address] 10-03-2024 03:48-0400 Body mass index (BMI) [Ratio] 47.7 kg/m2 Miryam Kimballhof [facility] Work Phone: 0(872)744-929594 [place] [address] 10-01-2024 07:37-0400 Inhaled oxygen flow rate 2 L/min Miryam Kimballhof [facility] Work Phone: 1(497)037-579494 [place] [address] 09-28-2024 21:36-0400 Body temperature 97.9 [degF] Miryam Kimballhof [facility] Work Phone: 2(872)854-093694 [place] [address] 09-28-2024 21:36-0400 Diastolic blood pressure 73 mm[Hg] Miryam Kimballhof [facility] Work Phone: 7(199)431-850194 [place] [address] 09-28-2024 21:36-0400 Heart rate 95 /min Miryam Serraf [facility] Work Phone: 5(120)742-577494 [place] [address] 09-28-2024 21:36-0400 Respiratory rate 22 /min Miryam Orozco [employer] Work Phone: 4(103)522-927975 [address] [place] [address] 09-28-2024 21:36-0400 SaO2% (BldA) [Mass fraction] 98 % Miryam Serraf [facility] Work Phone: 8(112)592-814675 [address] [place] [address] 09-28-2024 21:36-0400 Systolic blood pressure 141 mm[Hg] Miryam Orozco [employer] Work Phone: 0(182)318-980175 [address] [place] [address] 09-28-2024 21:32-0400 Body mass index (BMI) [Ratio] 46.1 kg/m2 Miryam Orozco [employer] Work Phone: 8(964)093-664075 [address] [place] [address] 09-28-2024 21:32-0400 Body weight 114.4 kg Miryam Orozco [employer] Work Phone: 1(929)710-431675 [address] [place] [address] 09-28-2024 13:11-0400 Body height 157.48 cm Miryam Orozco [employer] Work Phone: 5(937)587-706175 [address] [place] [address] 09-22-2024 14:18-0400 Body mass index (BMI) [Ratio] 43.63 kg/m2 Lizy Capone MD Work Phone: [facility] 09-22-2024 14:18-0400 Body weight 108.2 kg Lizy Capone MD Work Phone: [facility] 09-22-2024 14:18-0400 Diastolic blood pressure 72 mm[Hg] Lizy Capone MD Work Phone: [facility] 09-22-2024 14:18-0400 Heart rate 120 /min Lizy Capone MD Work Phone: [facility] 09-22-2024 14:18-0400 Respiratory rate 18 /min Lizy Capone MD Work Phone: [facility] 09-22-2024 14:18-0400 SaO2% (BldA) [Mass fraction] 98 % Lizy Capone MD Work Phone: [facility] 09-22-2024 14:18-0400 Systolic blood pressure 122 mm[Hg] Lizy Capone MD Work Phone: [facility] 09-19-2024 14:22-0400 Body temperature 98.1 [degF] Miryampoonam Serraf STOPER-C Work Phone: [facility] 09-19-2024 14:22-0400 Diastolic blood pressure 78 mm[Hg] Miryam Kimballhof [employer]OPER-C Work Phone: [facility] 09-19-2024 14:22-0400 Heart rate 72 /min Miryampoonam Kimballhof [employer]OPER[facility]C Work Phone: [facility] 09-19-2024 14:22-0400 Respiratory rate 18 /min Miryam Serraf [employer]OPER[facility]C Work Phone: [facility] 09-19-2024 14:22-0400 Systolic blood pressure 138 mm[Hg] Miryam Kimballhof [employer]OPER[facility]C Work Phone: [facility] 09-15-2024 13:29-0400 Body mass index (BMI) [Ratio] 42.62 kg/m2 Michael Carter APRN.MRI MANAGER Work Phone: [facility] 09-15-2024 13:29-0400 Body weight 105.69 kg Michael Carter APRN.MRI MANAGER Work Phone: [facility] 09-15-2024 13:29-0400 Diastolic blood pressure 67 mm[Hg] Michael Carter APRN.MRI MANAGER Work Phone: [facility] 09-15-2024 13:29-0400 Heart rate 72 /min Michael Carter APRN.MRI MANAGER Work Phone: [facility] 09-15-2024 13:29-0400 SaO2% (BldA) [Mass fraction] 95 % Michael Carter APRN.MRI MANAGER Work Phone: [facility] 09-15-2024 13:29-0400 Systolic blood pressure 112 mm[Hg] Michael Carter APRN.MRI MANAGER Work Phone: [facility] 09-06-2024 10:30-0400 Body temperature 99.4 [degF] Miryam Kimballhof [employer]OPER-C Work Phone: 7(205)005-863375 [address] [place] [address] 09-06-2024 10:30-0400 Diastolic blood pressure 78 mm[Hg] Miryam Kimballhof [employer]OPER[facility]C Work Phone: 0(335)703-386294 [place] [address] 09-06-2024 10:30-0400 Heart rate 64 /min Miryampoonam Kimballhof [employer]OPER[facility] Work Phone: 4(145)420-763494 [place] [address] 09-06-2024 10:30-0400 Respiratory rate 16 /min Miryam Kimballhof [employer] Work Phone: 3(290)854-299294 [place] [address] 09-06-2024 10:30-0400 SaO2% (BldA) [Mass fraction] 100 % Miryam Kimballhof [employer] Work Phone: 2(038)684-419294 [place] [address] 09-06-2024 10:30-0400 Systolic blood pressure 135 mm[Hg] Miryam Kimballhof [employer]OPER[facility] Work Phone: 1(912)147-755675 [address] [place] [address] 09-06-2024 08:12-0400 Body height 149.86 cm Miryam Kimballhof [employer] Work Phone: 5(045)818-246794 [place] [address] 09-06-2024 08:12-0400 Body mass index (BMI) [Ratio] 47 kg/m2 Mriyampoonam Kimballhof [employer] Work Phone: 3([phone] [place] [address] 09-06-2024 08:12-0400 Body weight 105.68 kg Miryam Kimballhof [employer] Work Phone: 2(237)[phone] [place] [address] 09-05-2024 08:37-0400 Body height 149.86 cm Miryam Kimballhof [employer] Work Phone: 0(578)[phone] [place] [address] 09-05-2024 08:37-0400 Body mass index (BMI) [Ratio] 47 kg/m2 Miryam Tannhof [employer] Work Phone: 6(623)754-620394 [place] [address] 09-05-2024 08:37-0400 Body temperature 98 [degF] Miryam Kimballhof [employer] Work Phone: [facility] 09-05-2024 08:37-0400 Body weight 105.68 kg Miryam Serraf [employer] Work Phone: [facility] 09-05-2024 08:37-0400 Diastolic blood pressure 72 mm[Hg] Miryam Kimballhof [employer] Work Phone: [facility] 09-05-2024 08:37-0400 Heart rate 78 /min Miryam Kimballhof [employer] Work Phone: 8(696)837-788975 [address] [place] [address] 09-05-2024 08:37-0400 Respiratory rate 16 /min Miryam Kimballhof [employer] Work Phone: 1(035)698-919175 [address] [place] [address] 09-05-2024 08:37-0400 SaO2% (BldA) [Mass fraction] 96 % Miryam Kimballhof [employer] Work Phone: [facility] 09-05-2024 08:37-0400 Systolic blood pressure 128 mm[Hg] Miryam Kimballhof [employer] Work Phone: [facility] 09-04-2024 14:37-0400 Body mass index (BMI) [Ratio] 42.62 kg/m2 Deacon Moomaw BUSINESS OFFICE TECHNOLOGY INSTRUCTOR.MRI MANAGER Work Phone: [facility] 09-04-2024 14:37-0400 Body temperature 98.49 [degF] Deacon Moomaw BUSINESS OFFICE TECHNOLOGY INSTRUCTOR.MRI MANAGER Work Phone: [facility] 09-04-2024 14:37-0400 Body weight 105.69 kg Deacon Moomaw BUSINESS OFFICE TECHNOLOGY INSTRUCTOR.MRI MANAGER Work Phone: [facility] 09-04-2024 14:37-0400 Diastolic blood pressure 76 mm[Hg] Deacon Moomaw BUSINESS OFFICE TECHNOLOGY INSTRUCTOR.MRI MANAGER Work Phone: [facility] 09-04-2024 14:37-0400 Heart rate 74 /min Deacon Moomaw BUSINESS OFFICE TECHNOLOGY INSTRUCTOR.MRI MANAGER Work Phone: [facility] 09-04-2024 14:37-0400 Respiratory rate 18 /min Deacon Moomaw BUSINESS OFFICE TECHNOLOGY INSTRUCTOR.MRI MANAGER Work Phone: [facility] 09-04-2024 14:37-0400 SaO2% (BldA) [Mass fraction] 95 % Deacon Moomaw BUSINESS OFFICE TECHNOLOGY INSTRUCTOR.MRI MANAGER Work Phone: [facility] 09-04-2024 14:37-0400 Systolic blood pressure 128 mm[Hg] Deacon Morganomaw BUSINESS OFFICE TECHNOLOGY INSTRUCTOR.MRI MANAGER Work Phone: [facility] 09-01-2024 14:39-0400 Body temperature 96.8 [degF] Miryam Kimballhof [employer] Work Phone: [facility] 09-01-2024 14:39-0400 Diastolic blood pressure 68 mm[Hg] Miryam Jigarhof [employer] Work Phone: [facility] 09-01-2024 14:39-0400 Heart rate 75 /min Miryampoonam Serraf [employer] Work Phone: [facility] 09-01-2024 14:39-0400 Respiratory rate 18 /min Miryampoonam Serraf [employer] Work Phone: [facility] 09-01-2024 14:39-0400 Systolic blood pressure 147 mm[Hg] Miryampoonam Kimballhof [employer] Work Phone: [facility] 08-22-2024 13:20-0400 Body mass index (BMI) [Ratio] 42.62 kg/m2 Lizy Capone MD Work Phone: [facility] 08-22-2024 13:20-0400 Body weight 105.69 kg Lizy Capone MD Work Phone: [facility] 08-22-2024 13:20-0400 Diastolic blood pressure 72 mm[Hg] Lizy Capone MD Work Phone: [facility] 08-22-2024 13:20-0400 Heart rate 61 /min Lizy Capone MD Work Phone: [facility] 08-22-2024 13:20-0400 Respiratory rate 18 /min Lizy Capone MD Work Phone: [facility] 08-22-2024 13:20-0400 SaO2% (BldA) [Mass fraction] 95 % Lizy Capone MD Work Phone: [facility] 08-22-2024 13:20-0400 Systolic blood pressure 124 mm[Hg] Lizy Capone MD Work Phone: [facility] 07-29-2024 15:43-0400 Body temperature 98.1 [degF] Miryam Kimballhof [employer] Work Phone: 2(888)537-817975 [address] [place] [address] 07-29-2024 15:43-0400 Diastolic blood pressure 76 mm[Hg] Miryam Jigarhof [employer] Work Phone: 9(624)441-420175 [address] [place] [address] 07-29-2024 15:43-0400 Heart rate 70 /min Miryam Jigarhof [employer] Work Phone: 2(823)181-556094 [place] [address] 07-29-2024 15:43-0400 Respiratory rate 18 /min Miryampoonam Kimballhof [employer] Work Phone: 1(246)170-722175 [address] [place] [address] 07-29-2024 15:43-0400 SaO2% (BldA) [Mass fraction] 99 % Miryam Jigarhof [employer] Work Phone: 9(651)274-935475 [address] [place] [address] 07-29-2024 15:43-0400 Systolic blood pressure 177 mm[Hg] Miryam Jigarhof [employer] Work Phone: 0(357)042-373075 [address] [place] [address] 07-29-2024 14:53-0400 Body height 154.94 cm Miryam Jigarhof [employer] Work Phone: 1(217)800-128175 [address] [place] [address] 07-29-2024 14:53-0400 Body mass index (BMI) [Ratio] 37.8 kg/m2 Miryam Jigarhof [employer] Work Phone: 2(472)853-723875 [address] [place] [address] 07-29-2024 14:53-0400 Body weight 90.8 kg Miryampoonam Kimballhof [employer] Work Phone: 6(875)548-550394 [place] [address] 06-10-2024 17:29-0500 Body temperature 97.9 [degF] Miryam Kimballhof [employer] Work Phone: 7(639)563-018294 [place] [address] 06-10-2024 17:29-0500 Diastolic blood pressure 60 mm[Hg] Miryam Serraf [employer] Work Phone: 8(945)006-653294 [place] [address] 06-10-2024 17:29-0500 Heart rate 74 /min Miryampoonam Serraf [employer] Work Phone: 3(325)156-399294 [place] [address] 06-10-2024 17:29-0500 Respiratory rate 16 /min Miryam Serraf [employer] Work Phone: 9(718)011-764494 [place] [address] 06-10-2024 17:29-0500 SaO2% (BldA) [Mass fraction] 99 % Miryam Serraf [employer] Work Phone: 1(182)624-023194 [place] [address] 06-10-2024 17:29-0500 Systolic blood pressure 122 mm[Hg] Miryam Serraf [employer] Work Phone: 5(489)288-002894 [place] [address] 06-08-2024 07:41-0500 Body mass index (BMI) [Ratio] 44.2 kg/m2 Miryam Serraf [employer] Work Phone: 6(889)799-274694 [place] [address] 06-08-2024 07:41-0500 Body weight 99.4 kg Miryam Serraf [employer] Work Phone: 0(104)086-076794 [place] [address] 06-01-2024 15:07-0500 Body height 149.86 cm Miryam Orozco [employer] Work Phone: 1(304)950-968394 [place] [address] 05-18-2024 15:18-0500 Body temperature 97.9 [degF] Kindra Gannon MD Work Phone: [facility] 05-18-2024 15:18-0500 Diastolic blood pressure 58 mm[Hg] Kindra Gannon MD Work Phone: [facility] 05-18-2024 15:18-0500 Heart rate 68 /min Kindra Gannon MD Work Phone: [facility] 05-18-2024 15:18-0500 Respiratory rate 16 /min Kindra Gannon MD Work Phone: [facility] 05-18-2024 15:18-0500 SaO2% (BldA) [Mass fraction] 95 % Kindra Gannon MD Work Phone: [facility] 05-18-2024 15:18-0500 Systolic blood pressure 111 mm[Hg] Kindra Gannon MD Work Phone: [facility] 05-18-2024 06:00-0500 Body mass index (BMI) [Ratio] 39.13 kg/m2 Kindra Gannon MD Work Phone: [facility] 05-18-2024 06:00-0500 Body weight 106.65 kg Kindra Gannon MD Work Phone: [facility] 05-11-2024 15:06-0500 Body height 165.1 cm Kindra Gannon MD Work Phone: [facility] 05-04-2024 19:00-0500 Body temperature 99.8 [degF] Miryam Serraf [employer] Work Phone: 8(624)341-003075 [address] [place] [address] 05-04-2024 19:00-0500 Diastolic blood pressure 57 mm[Hg] Miryam Kimballhof [employer] Work Phone: 9(388)670-239975 [address] [place] [address] 05-04-2024 19:00-0500 Heart rate 68 /min Miryam Serraf [employer] Work Phone: 7(140)757-816375 [address] [place] [address] 05-04-2024 19:00-0500 Inhaled oxygen concentration 25 % Miryampoonam Kimballhof [employer] Work Phone: 4(675)416-690175 [address] [place] [address] 05-04-2024 19:00-0500 Respiratory rate 14 /min Miryam Serraf [employer] Work Phone: [facility] 05-04-2024 19:00-0500 SaO2% (BldA) [Mass fraction] 98 % Miryam Serraf [employer] Work Phone: [facility] 05-04-2024 19:00-0500 Systolic blood pressure 107 mm[Hg] Miryam Serraf [employer] Work Phone: [facility] 05-04-2024 14:50-0500 Body mass index (BMI) [Ratio] 49.8 kg/m2 Miryam Tannhof [employer] Work Phone: [facility] 05-04-2024 14:50-0500 Body weight 115 kg Miryampoonam Kimballhof [employer] Work Phone: [facility] 01-28-2024 08:55-0400 Body mass index (BMI) [Ratio] 41.88 kg/m2 Miryampoonam Kimballhof BUSINESS OFFICE TECHNOLOGY INSTRUCTOR.MRI MANAGER Work Phone: [facility] 01-28-2024 08:55-0400 Body weight 103.87 kg Miryampoonam Kimballhof BUSINESS OFFICE TECHNOLOGY INSTRUCTOR.MRI MANAGER Work Phone: [facility] 01-28-2024 08:55-0400 Diastolic blood pressure 60 mm[Hg] Miryam Kimballhof BUSINESS OFFICE TECHNOLOGY INSTRUCTOR.MRI MANAGER Work Phone: [facility] 01-28-2024 08:55-0400 Heart rate 77 /min Miryam Kimballhof BUSINESS OFFICE TECHNOLOGY INSTRUCTOR.MRI MANAGER Work Phone: [facility] 01-28-2024 08:55-0400 Respiratory rate 16 /min Miryam Kimballhof BUSINESS OFFICE TECHNOLOGY INSTRUCTOR.MRI MANAGER Work Phone: [facility] 01-28-2024 08:55-0400 SaO2% (BldA) [Mass fraction] 96 % Miryampoonam Kimballhof BUSINESS OFFICE TECHNOLOGY INSTRUCTOR.MRI MANAGER Work Phone: [facility] 01-28-2024 08:55-0400 Systolic blood pressure 122 mm[Hg] Miryam Kimballhof BUSINESS OFFICE TECHNOLOGY INSTRUCTOR.MRI MANAGER Work Phone: [facility] 12-17-2023 08:53-0400 Heart rate 71 /min Roque Delgado MD Work Phone: [facility] 12-17-2023 08:53-0400 Respiratory rate 14 /min Roque Delgado MD Work Phone: [facility] 12-17-2023 08:53-0400 SaO2% (BldA) [Mass fraction] 99 % Roque Delgado MD Work Phone: [facility] 12-04-2023 08:03-0400 Body mass index (BMI) [Ratio] 40.79 kg/m2 Starr Marques MD Work Phone: [facility] 12-04-2023 08:03-0400 Body weight 101.15 kg Starr Marques MD Work Phone: [facility] 12-04-2023 08:03-0400 Diastolic blood pressure 60 mm[Hg] Starr Marques MD Work Phone: [facility] 12-04-2023 08:03-0400 Systolic blood pressure 108 mm[Hg] Starr Marques MD Work Phone: [facility] 11-16-2023 10:58-0400 Diastolic blood pressure 57 mm[Hg] Roque Delgado MD Work Phone: [facility] 11-16-2023 10:58-0400 Heart rate 71 /min Roque Delgado MD Work Phone: [facility] 11-16-2023 10:58-0400 Respiratory rate 17 /min Roque Delgado MD Work Phone: [facility] 11-16-2023 10:58-0400 SaO2% (BldA) [Mass fraction] 97 % Roque Delgado MD Work Phone: [facility] 11-16-2023 10:58-0400 Systolic blood pressure 109 mm[Hg] Roque Delgado MD Work Phone: [facility] 11-09-2023 09:17-0400 Body mass index (BMI) [Ratio] 39.92 kg/m2 Miryam Orozco APRN.MRI MANAGER Work Phone: [facility] 11-09-2023 09:17-0400 Body weight 99 kg Miryam Orozco APRN.MRI MANAGER Work Phone: [facility] 11-09-2023 09:17-0400 Diastolic blood pressure 60 mm[Hg] Miryam Tannhof BUSINESS OFFICE TECHNOLOGY INSTRUCTOR.MRI MANAGER Work Phone: [facility] 11-09-2023 09:17-0400 Heart rate 104 /min Miryam Tannhof BUSINESS OFFICE TECHNOLOGY INSTRUCTOR.MRI MANAGER Work Phone: [facility] 11-09-2023 09:17-0400 Respiratory rate 16 /min Miryam Tannhof BUSINESS OFFICE TECHNOLOGY INSTRUCTOR.MRI MANAGER Work Phone: [facility] 11-09-2023 09:17-0400 SaO2% (BldA) [Mass fraction] 100 % Miryam Tannhof BUSINESS OFFICE TECHNOLOGY INSTRUCTOR.MRI MANAGER Work Phone: [facility] 11-09-2023 09:17-0400 Systolic blood pressure 106 mm[Hg] Miryam Tannhof BUSINESS OFFICE TECHNOLOGY INSTRUCTOR.MRI MANAGER Work Phone: [facility] 07-22-2023 12:45-0400 Body weight 101.15 kg Miryam Tannhof BUSINESS OFFICE TECHNOLOGY INSTRUCTOR.MRI MANAGER Work Phone: [facility] 07-22-2023 12:45-0400 Diastolic blood pressure 70 mm[Hg] Miryam Tannhof BUSINESS OFFICE TECHNOLOGY INSTRUCTOR.MRI MANAGER Work Phone: [facility] 07-22-2023 12:45-0400 Heart rate 78 /min Miryam Tannhof BUSINESS OFFICE TECHNOLOGY INSTRUCTOR.MRI MANAGER Work Phone: [facility] 07-22-2023 12:45-0400 Respiratory rate 16 /min Miryam Tannhof BUSINESS OFFICE TECHNOLOGY INSTRUCTOR.MRI MANAGER Work Phone: [facility] 07-22-2023 12:45-0400 SaO2% (BldA) [Mass fraction] 97 % Miryam Tannhof BUSINESS OFFICE TECHNOLOGY INSTRUCTOR.MRI MANAGER Work Phone: [facility] 07-22-2023 12:45-0400 Systolic blood pressure 114 mm[Hg] Miryam Tannhof BUSINESS OFFICE TECHNOLOGY INSTRUCTOR.MRI MANAGER Work Phone: [facility] 07-15-2023 09:33-0400 Diastolic blood pressure 77 mm[Hg] Roque Delgado MD Work Phone: [facility] 07-15-2023 09:33-0400 Heart rate 76 /min Roque Delgado MD Work Phone: [facility] 07-15-2023 09:33-0400 Respiratory rate 15 /min Roque Delgado MD Work Phone: [facility] 07-15-2023 09:33-0400 SaO2% (BldA) [Mass fraction] 96 % Roque Delgado MD Work Phone: [facility] 07-15-2023 09:33-0400 Systolic blood pressure 114 mm[Hg] Roque Delgado MD Work Phone: [facility] 06-09-2023 09:05-0500 SaO2% (BldA) [Mass fraction] 93 % Dr. Judson Toney Work Phone: [facility] 06-09-2023 08:18-0500 Body temperature 98 [degF] Dr. Judson Toeny Work Phone: [facility] 06-09-2023 08:18-0500 Diastolic blood pressure 77 mm[Hg] Dr. Judson Toney Work Phone: [facility] 06-09-2023 08:18-0500 Heart rate 67 /min Dr. Judson Toney Work Phone: [facility] 06-09-2023 08:18-0500 Respiratory rate 18 /min Dr. Judson Toney Work Phone: [facility] 06-09-2023 08:18-0500 Systolic blood pressure 139 mm[Hg] Dr. Judson Toney Work Phone: [facility] 06-09-2023 04:54-0500 Body mass index (BMI) [Ratio] 40 kg/m2 Dr. Judson Toney Work Phone: [facility] 06-09-2023 04:54-0500 Body weight 98.[address] Judson Toney Work Phone: [facility] 06-08-2023 01:28-0500 Body height 157.[address] Judson Toney Work Phone: [facility] 06-07-2023 23:36-0500 Body temperature 97.5 [degF] [facility] 06-07-2023 23:36-0500 Diastolic blood pressure 69 mm[Hg] [facility] 06-07-2023 23:36-0500 Heart rate 98 /min [facility] 06-07-2023 23:36-0500 Respiratory rate 19 /min [facility] 06-07-2023 23:36-0500 SaO2% (BldA) [Mass fraction] 99 % [facility] 06-07-2023 23:36-0500 Systolic blood pressure 127 mm[Hg] [facility] 06-07-2023 19:09-0500 Body height 157.48 cm [facility] 06-07-2023 19:09-0500 Body mass index (BMI) [Ratio] 38.4 kg/m2 [facility] 06-07-2023 19:09-0500 Body weight 95.25 kg [facility] 06-02-2023 07:01-0500 Body height 157.5 cm Rebekah Bobo BUSINESS OFFICE TECHNOLOGY INSTRUCTOR.CJ Work Phone: [facility] 06-02-2023 07:01-0500 Body weight 98.88 kg Rebekah Bobo BUSINESS OFFICE TECHNOLOGY INSTRUCTOR.MRI MANAGER Work Phone: [facility] 05-18-2023 13:33-0500 Diastolic blood pressure 56 mm[Hg] Roque Delgado MD Work Phone: [facility] 05-18-2023 13:33-0500 Heart rate 79 /min Roque Delgado MD Work Phone: [facility] 05-18-2023 13:33-0500 Respiratory rate 18 /min Roque Delgado MD Work Phone: [facility] 05-18-2023 13:33-0500 SaO2% (BldA) [Mass fraction] 97 % Roque Delgado MD Work Phone: [facility] 05-18-2023 13:33-0500 Systolic blood pressure 122 mm[Hg] Roque Delgado MD Work Phone: [facility] 03-02-2023 06:59-0500 Body height 157.5 cm Rebekah Benjamin BUSINESS OFFICE TECHNOLOGY INSTRUCTOR.MRI MANAGER Work Phone: [facility] 03-02-2023 06:59-0500 Body weight 104.33 kg Rebekah Benjamin BUSINESS OFFICE TECHNOLOGY INSTRUCTOR.MRI MANAGER Work Phone: [facility] 02-16-2023 12:02-0500 Diastolic blood pressure 77 mm[Hg] Roque Delgado MD Work Phone: [facility] 02-16-2023 12:02-0500 Heart rate 54 /min Roque Delgado MD Work Phone: [facility] 02-16-2023 12:02-0500 Respiratory rate 17 /min Roque Delgado MD Work Phone: [facility] 02-16-2023 12:02-0500 SaO2% (BldA) [Mass fraction] 99 % Roque Delgado MD Work Phone: [facility] 02-16-2023 12:02-0500 Systolic blood pressure 130 mm[Hg] Roque Delgado MD Work Phone: [facility] 01-15-2023 08:19-0400 Heart rate 71 /min Roque Delgado MD Work Phone: [facility] 01-15-2023 08:19-0400 Respiratory rate 18 /min Roque Delgado MD Work Phone: [facility] 01-15-2023 08:19-0400 SaO2% (BldA) [Mass fraction] 97 % Roque Delgado MD Work Phone: [facility] 12-22-2022 08:51-0400 Body weight 104.33 kg Miryam Orozco BUSINESS OFFICE TECHNOLOGY INSTRUCTOR.MRI MANAGER Work Phone: [facility] 12-22-2022 08:51-0400 Diastolic blood pressure 72 mm[Hg] Miryam Tannhof BUSINESS OFFICE TECHNOLOGY INSTRUCTOR.MRI MANAGER Work Phone: [facility] 12-22-2022 08:51-0400 Heart rate 61 /min Miryam Tannhof BUSINESS OFFICE TECHNOLOGY INSTRUCTOR.MRI MANAGER Work Phone: [facility] 12-22-2022 08:51-0400 Respiratory rate 16 /min Miryam Tannhof BUSINESS OFFICE TECHNOLOGY INSTRUCTOR.MRI MANAGER Work Phone: [facility] 12-22-2022 08:51-0400 SaO2% (BldA) [Mass fraction] 96 % Miryam Tannhof BUSINESS OFFICE TECHNOLOGY INSTRUCTOR.MRI MANAGER Work Phone: [facility] 12-22-2022 08:51-0400 Systolic blood pressure 112 mm[Hg] Miryam Tannhof BUSINESS OFFICE TECHNOLOGY INSTRUCTOR.MRI MANAGER Work Phone: [facility] 10-16-2022 08:03-0400 Heart rate 79 /min Roque Delgado MD Work Phone: [facility] 10-16-2022 08:03-0400 Respiratory rate 16 /min Roque Delgado MD Work Phone: [facility] 10-16-2022 08:03-0400 SaO2% (BldA) [Mass fraction] 95 % Roque Delgado MD Work Phone: [facility] 10-03-2022 09:26-0400 Body height 154.[address] Lizy Capone Work Phone: [facility] 10-03-2022 09:26-0400 Body mass index (BMI) [Ratio] 45.9 kg/m2 Dr. Lizy Capone Work Phone: [facility] 10-03-2022 09:26-0400 Body weight 110.[address] Lizy Capone Work Phone: [facility] 10-03-2022 09:26-0400 Diastolic blood pressure 74 mm[Hg] Dr. Lizy Capone Work Phone: [facility] 10-03-2022 09:26-0400 Heart rate 61 /min Dr. Lizy Capone Work Phone: [facility] 10-03-2022 09:26-0400 Respiratory rate 18 /min Dr. Lizy Capone Work Phone: [facility] 10-03-2022 09:26-0400 Systolic blood pressure 121 mm[Hg] Dr. Lizy Capone Work Phone: [facility] 10-02-2022 09:55-0400 Heart rate 62 /min Roque Delgado MD Work Phone: [facility] 10-02-2022 09:55-0400 Respiratory rate 17 /min Roque Delgado MD Work Phone: [facility] 10-02-2022 09:55-0400 SaO2% (BldA) [Mass fraction] 97 % Roque Delgado MD Work Phone: [facility] 08-13-2022 15:20-0400 Diastolic blood pressure 81 mm[Hg] Roque Delgado MD Work Phone: [facility] 08-13-2022 15:20-0400 Heart rate 53 /min Roque Delgado MD Work Phone: [facility] 08-13-2022 15:20-0400 Respiratory rate 15 /min Roque Delgado MD Work Phone: [facility] 08-13-2022 15:20-0400 SaO2% (BldA) [Mass fraction] 97 % Roque Delgado MD Work Phone: [facility] 08-13-2022 15:20-0400 Systolic blood pressure 131 mm[Hg] Roque Delgado MD Work Phone: [facility] 08-01-2022 07:31-0400 Body height 154.[address] Lizy Capone Work Phone: [facility] 08-01-2022 07:31-0400 Body weight 135.[address] Lizy Capone Work Phone: [facility] 07-31-2022 07:19-0400 Body mass index (BMI) [Ratio] 56.5 kg/m2 Dr. Lizy Capone Work Phone: [facility] 07-30-2022 14:35-0400 Diastolic blood pressure 59 mm[Hg] Roque Delgado MD Work Phone: [facility] 07-30-2022 14:35-0400 Heart rate 55 /min Roque Delgado MD Work Phone: [facility] 07-30-2022 14:35-0400 Respiratory rate 16 /min Roque Delgado MD Work Phone: [facility] 07-30-2022 14:35-0400 SaO2% (BldA) [Mass fraction] 100 % Roque Delgado MD Work Phone: [facility] 07-30-2022 14:35-0400 Systolic blood pressure 129 mm[Hg] Roque Delgado MD Work Phone: [facility] 06-30-2022 09:29-0400 Body height 157.5 cm Ragini Barley BUSINESS OFFICE TECHNOLOGY INSTRUCTOR.MRI MANAGER Work Phone (unformatted): [phone] [facility] 06-30-2022 09:29-0400 Body weight 135.63 kg Ragini Barley BUSINESS OFFICE TECHNOLOGY INSTRUCTOR.MRI MANAGER Work Phone (unformatted): [phone] [facility] 06-30-2022 09:29-0400 Diastolic blood pressure 80 mm[Hg] Ragini Barley BUSINESS OFFICE TECHNOLOGY INSTRUCTOR.MRI MANAGER Work Phone (unformatted): [phone] [facility] 06-30-2022 09:29-0400 Heart rate 66 /min Ragini Barley BUSINESS OFFICE TECHNOLOGY INSTRUCTOR.MRI MANAGER Work Phone (unformatted): [phone] [facility] 06-30-2022 09:29-0400 Respiratory rate 16 /min Ragini Barley BUSINESS OFFICE TECHNOLOGY INSTRUCTOR.MRI MANAGER Work Phone (unformatted): [phone] [facility] 06-30-2022 09:29-0400 SaO2% (BldA) [Mass fraction] 94 % Ragini Barley BUSINESS OFFICE TECHNOLOGY INSTRUCTOR.MRI MANAGER Work Phone (unformatted): [phone] [facility] 06-30-2022 09:29-0400 Systolic blood pressure 135 mm[Hg] Ragini Eliseo BUSINESS OFFICE TECHNOLOGY INSTRUCTOR.MRI MANAGER Work Phone (unformatted): [phone] [facility] 06-27-2022 10:23-0400 Body mass index (BMI) [Ratio] 56.5 kg/m2 Dr. Lizy Capone Work Phone: [facility] 06-27-2022 10:23-0400 Body weight 135.[address] Lizy Capone Work Phone: [facility] 06-27-2022 10:23-0400 Diastolic blood pressure 80 mm[Hg] Dr. Lizy Capone Work Phone: [facility] 06-27-2022 10:23-0400 Heart rate 68 /min Dr. Lizy Capone Work Phone: [facility] 06-27-2022 10:23-0400 Respiratory rate 18 /min Dr. Lizy Capone Work Phone: [facility] 06-27-2022 10:23-0400 Systolic blood pressure 143 mm[Hg] Dr. Lizy Capone Work Phone: [facility] 06-26-2022 08:54-0400 Body weight 135.63 kg Miryam Orozco BUSINESS OFFICE TECHNOLOGY INSTRUCTOR.MRI MANAGER Work Phone: [facility] 06-26-2022 08:54-0400 Diastolic blood pressure 76 mm[Hg] Miryam Orozco BUSINESS OFFICE TECHNOLOGY INSTRUCTOR.MRI MANAGER Work Phone: [facility] 06-26-2022 08:54-0400 Heart rate 77 /min Miryam Kimballhof BUSINESS OFFICE TECHNOLOGY INSTRUCTOR.MRI MANAGER Work Phone: [facility] 06-26-2022 08:54-0400 Respiratory rate 20 /min Miryam Kimballhopat BUSINESS OFFICE TECHNOLOGY INSTRUCTOR.MRI MANAGER Work Phone: [facility] 06-26-2022 08:54-0400 SaO2% (BldA) [Mass fraction] 96 % Miryam Orozco BUSINESS OFFICE TECHNOLOGY INSTRUCTOR.MRI MANAGER Work Phone: [facility] 06-26-2022 08:54-0400 Systolic blood pressure 124 mm[Hg] Miryam Orozco APRN.CNP Work Phone: [facility] 05-13-2022 15:21-0500 Body height 157.5 cm Jae Cagle MD Work Phone: [facility] 05-13-2022 15:21-0500 Body temperature 98.01 [degF] Jae Cagle MD Work Phone: [facility] 05-13-2022 15:21-0500 Body weight 129.28 kg Jae Cagle MD Work Phone: [facility] 05-13-2022 15:21-0500 Diastolic blood pressure 58 mm[Hg] Jae Cagle MD Work Phone: [facility] 05-13-2022 15:21-0500 Heart rate 74 /min Jae Cagle MD Work Phone: [facility] 05-13-2022 15:21-0500 SaO2% (BldA) [Mass fraction] 91 % Jae Cagle MD Work Phone: [facility] 05-13-2022 15:21-0500 Systolic blood pressure 108 mm[Hg] Jae Cagle MD Work Phone: [facility] 03-06-2022 09:55-0500 Body height 154.[address] Lizy Capone Work Phone: [facility] 03-06-2022 09:55-0500 Body mass index (BMI) [Ratio] 50.6 kg/m2 Dr. Lizy Capone Work Phone: [facility] 03-06-2022 09:55-0500 Body weight 121.[address] Lizy Capone Work Phone: [facility] 03-06-2022 09:55-0500 Diastolic blood pressure 77 mm[Hg] Dr. Lizy Capone Work Phone: [facility] 03-06-2022 09:55-0500 Heart rate 59 /min Dr. Lizy Capone Work Phone: [facility] 03-06-2022 09:55-0500 Respiratory rate 18 /min Dr. Lizy Capone Work Phone: [facility] 03-06-2022 09:55-0500 Systolic blood pressure 151 mm[Hg] Dr. Lizy Capone Work Phone: [facility] 01-30-2022 15:50-0400 Heart rate 67 /min Roque Delgado MD Work Phone: [facility] 01-30-2022 15:50-0400 Respiratory rate 18 /min Roque Delgado MD Work Phone: [facility] 01-30-2022 15:50-0400 SaO2% (BldA) [Mass fraction] 97 % Roque Delgado MD Work Phone: [facility] 01-14-2022 15:42-0400 Body height 154.[address] Lizy Capone Work Phone: [facility] Work Phone: 01-14-2022 15:42-0400 Body mass index (BMI) [Ratio] 49.8 kg/m2 Dr. Lizy Capone Work Phone: [facility] Work Phone: 01-14-2022 15:42-0400 Body weight 119.[address] Lizy Capone Work Phone: [facility] Work Phone: 01-14-2022 15:42-0400 Diastolic blood pressure 73 mm[Hg] Dr. Lizy Capone Work Phone: [facility] Work Phone: 01-14-2022 15:42-0400 Heart rate 60 /min Dr. Lizy Capone Work Phone: [facility] Work Phone: 01-14-2022 15:42-0400 Respiratory rate 18 /min Dr. Lizy Capone Work Phone: [facility] Work Phone: 01-14-2022 15:42-0400 SaO2% (BldA) [Mass fraction] 95 % Dr. Lizy Capone Work Phone: [facility] Work Phone: 01-14-2022 15:42-0400 Systolic blood pressure 158 mm[Hg] Dr. Lizy Capone Work Phone: [facility] Work Phone: 01-08-2022 11:38-0400 Body temperature 97.9 [degF] Roque Delgado MD Work Phone: [facility] 01-08-2022 11:38-0400 Diastolic blood pressure 70 mm[Hg] Roque Delagdo MD Work Phone: [facility] 01-08-2022 11:38-0400 Respiratory rate 16 /min Roque Delgado MD Work Phone: [facility] 01-08-2022 11:38-0400 SaO2% (BldA) [Mass fraction] 100 % Roque Delgado MD Work Phone: [facility] 01-08-2022 11:38-0400 Systolic blood pressure 148 mm[Hg] Roque Delgado MD Work Phone: [facility] 01-08-2022 10:36-0400 Heart rate 64 /min Roque Delgado MD Work Phone: [facility] 01-02-2022 07:07-0400 Body weight 119.75 kg Miryam Orozco BUSINESS OFFICE TECHNOLOGY INSTRUCTOR.MRI MANAGER Work Phone: [facility] 01-02-2022 07:07-0400 Diastolic blood pressure 80 mm[Hg] Miryam Orozco BUSINESS OFFICE TECHNOLOGY INSTRUCTOR.MRI MANAGER Work Phone: [facility] 01-02-2022 07:07-0400 Heart rate 61 /min Miryam Orozco BUSINESS OFFICE TECHNOLOGY INSTRUCTOR.MRI MANAGER Work Phone: [facility] 01-02-2022 07:07-0400 Respiratory rate 20 /min Miryam Tannree BUSINESS OFFICE TECHNOLOGY INSTRUCTOR.MRI MANAGER Work Phone: [facility] 01-02-2022 07:07-0400 SaO2% (BldA) [Mass fraction] 98 % Miryam Orozco BUSINESS OFFICE TECHNOLOGY INSTRUCTOR.MRI MANAGER Work Phone: [facility] 01-02-2022 07:07-0400 Systolic blood pressure 138 mm[Hg] Miryampoonam Orozco BUSINESS OFFICE TECHNOLOGY INSTRUCTOR.MRI MANAGER Work Phone: [facility] 12-26-2021 14:38-0400 Body height 157.5 cm Avis Españafield BUSINESS OFFICE TECHNOLOGY INSTRUCTOR.MRI MANAGER Work Phone: [facility] 12-26-2021 14:38-0400 Body weight 104.33 kg Avis Marrufo BUSINESS OFFICE TECHNOLOGY INSTRUCTOR.MRI MANAGER Work Phone: [facility] 12-26-2021 12:36-0400 Body temperature 96.8 [degF] Dr. Lizy Capone Work Phone: [facility] Work Phone: 12-26-2021 12:36-0400 Diastolic blood pressure 76 mm[Hg] Dr. Lizy Capone Work Phone: [facility] Work Phone: 12-26-2021 12:36-0400 Heart rate 65 /min Dr. Lizy Capone Work Phone: [facility] Work Phone: 12-26-2021 12:36-0400 Respiratory rate 18 /min Dr. Lizy Capone Work Phone: [facility] Work Phone: 12-26-2021 12:36-0400 SaO2% (BldA) [Mass fraction] 97 % Dr. Lizy Capone Work Phone: [facility] Work Phone: 12-26-2021 12:36-0400 Systolic blood pressure 145 mm[Hg] Dr. Lizy Capone Work Phone: [facility] Work Phone: 12-26-2021 07:36-0400 Body height 154.[address] Lizy Capone Work Phone: [facility] Work Phone: 12-25-2021 13:06-0400 Diastolic blood pressure 67 mm[Hg] Roque Delgado MD Work Phone: [facility] 12-25-2021 13:06-0400 Heart rate 57 /min Roque Delgado MD Work Phone: [facility] 12-25-2021 13:06-0400 Respiratory rate 18 /min Roque Delgado MD Work Phone: [facility] 12-25-2021 13:06-0400 SaO2% (BldA) [Mass fraction] 98 % Roque Delgado MD Work Phone: [facility] 12-25-2021 13:06-0400 Systolic blood pressure 142 mm[Hg] Roque Delgado MD Work Phone: [facility] 12-25-2021 13:03-0400 Body temperature 97.7 [degF] Roque Delgado MD Work Phone: [facility] 12-19-2021 09:20-0400 Body temperature 98 [degF] Dr. Lizy Capone Work Phone: [facility] Work Phone: 12-19-2021 09:20-0400 Body weight 120.[address] Lizy Capone Work Phone: [facility] Work Phone: 12-19-2021 09:20-0400 Diastolic blood pressure 67 mm[Hg] Dr. Lizy Capone Work Phone: [facility] Work Phone: 12-19-2021 09:20-0400 Heart rate 67 /min Dr. Lizy Capone Work Phone: [facility] Work Phone: 12-19-2021 09:20-0400 Respiratory rate 18 /min Dr. Lizy Capone Work Phone: [facility] Work Phone: 12-19-2021 09:20-0400 SaO2% (BldA) [Mass fraction] 98 % Dr. Lizy Capone Work Phone: [facility] Work Phone: 12-19-2021 09:20-0400 Systolic blood pressure 134 mm[Hg] Dr. Lizy Capone Work Phone: [facility] Work Phone: 09-19-2021 09:23-0400 Heart rate 63 /min Avis Marrufo BUSINESS OFFICE TECHNOLOGY INSTRUCTOR.MRI MANAGER Work Phone: [facility] 09-19-2021 09:23-0400 Respiratory rate 18 /min Avis Marrufo BUSINESS OFFICE TECHNOLOGY INSTRUCTOR.MRI MANAGER Work Phone: [facility] 09-19-2021 09:23-0400 SaO2% (BldA) [Mass fraction] 97 % Avis Marrufo BUSINESS OFFICE TECHNOLOGY INSTRUCTOR.MRI MANAGER Work Phone: [facility] 08-06-2021 13:23-0400 Body height 154.[address] Lizy Capone Work Phone: [facility] Work Phone: 08-06-2021 13:23-0400 Body mass index (BMI) [Ratio] 43.6 kg/m2 Dr. Lizy Capone Work Phone: [facility] Work Phone: 08-06-2021 13:23-0400 Body weight 104.[address] Lizy Capone Work Phone: [facility] Work Phone: 08-06-2021 13:23-0400 Diastolic blood pressure 79 mm[Hg] Dr. Lizy Capone Work Phone: [facility] Work Phone: 08-06-2021 13:23-0400 Heart rate 74 /min Dr. Lizy Capone Work Phone: [facility] Work Phone: 08-06-2021 13:23-0400 Respiratory rate 18 /min Dr. Lizy Capone Work Phone: [facility] Work Phone: 08-06-2021 13:23-0400 SaO2% (BldA) [Mass fraction] 95 % Dr. Lizy Capone Work Phone: [facility] Work Phone: 08-06-2021 13:23-0400 Systolic blood pressure 145 mm[Hg] Dr. Lizy Capone Work Phone: [facility] Work Phone: 08-06-2021 13:23-0400 Body height 154.[address] Lizy Capone Work Phone: [facility] Work Phone: 08-06-2021 13:23-0400 Body mass index (BMI) [Ratio] 43.6 kg/m2 Dr. Lizy Capone Work Phone: [facility] Work Phone: 08-06-2021 13:23-0400 Body weight 104.[address] Lizy Capone Work Phone: [facility] Work Phone: 08-06-2021 13:23-0400 Diastolic blood pressure 79 mm[Hg] Dr. Lizy Capone Work Phone: [facility] Work Phone: 08-06-2021 13:23-0400 Heart rate 74 /min Dr. Lizy Capone Work Phone: [facility] Work Phone: 08-06-2021 13:23-0400 Respiratory rate 18 /min Dr. Lizy Capone Work Phone: [facility] Work Phone: 08-06-2021 13:23-0400 SaO2% (BldA) [Mass fraction] 95 % Dr. Lizy Capone Work Phone: [facility] Work Phone: 08-06-2021 13:23-0400 Systolic blood pressure 145 mm[Hg] Dr. Lizy Capone Work Phone: [facility] Work Phone: 07-16-2021 09:08-0400 Body weight 104.42 kg Lizy Capone MD Work Phone: [facility] 07-16-2021 09:08-0400 Diastolic blood pressure 64 mm[Hg] Lizy Capone MD Work Phone: [facility] 07-16-2021 09:08-0400 Heart rate 72 /min Lizy Capone MD Work Phone: [facility] 07-16-2021 09:08-0400 Respiratory rate 16 /min Lizy Capone MD Work Phone: [facility] 07-16-2021 09:08-0400 Systolic blood pressure 110 mm[Hg] Lizy Capone MD Work Phone: [facility] Encounters Encounter Date Encounter Type Care Provider Facility Start: 11-11-2024 End: 11-11-2024 Dr. Chayo Hernandez MD -[facility] Work Phone: Start: 11-11-2024 End: 11-11-2024 ambulatory Miryam Orozco STOPER-C Work Phone: -[facility] Start: 11-07-2024 [facility] Start: 11-07-[address] [facility] Start: 11-03-2024 End: 11-03-2024 Telephone encounter Lizy Capone MD Work Phone: [facility] [place] Comment on above: concerns for patient Start: 11-01-2024 Dr. Donell Ferrara MD -[facility] Work Phone: Start: 10-31-2024 Dr. Donell Ferrara MD -[facility] Work Phone: Start: 10-30-2024 Dr. Donell Ferrara MD -[facility] Work Phone: Start: 10-29-2024 ambulatory Lizy Leal y:[facility] Start: 10-29-2024 End: 11-01-2024 Evaluation and management of inpatient Miryam Kimballmirzaf STOPER-C Work Phone: -Progressive Care Unit Start: 10-29-2024 End: 11-01-2024 Dr. Russell Todd DO -[facility] Work Phone: Start: 10-28-2024 End: 11-03-2024 Telephone encounter Lizy Capone MD Work Phone: Family [facility] Comment on above: Patient concern Start: 10-27-2024 End: 11-03-2024 Telephone encounter [facility] Comment on above: Orders Referral for Palliti ve care Start: 10-26-2024 End: 10-26-2024 Miryampoonam Serraf STOPER-C Work Phone: -Emergency Department Work Phone: Start: 10-26-2024 ambulatory [facility] Start: 10-26-2024 End: 10-26-2024 Emergency department patient visit Miryampoonam Serraf STOPER-C Work Phone: -Emergency Department Start: 10-25-2024 End: 10-25-2024 Dr. Norberto Jackson MD -[facility] Work Phone: Start: 10-25-2024 End: 10-25-2024 ambulatory Miryampoonam Serraf STOPER-C Work Phone: -[facility] Start: 10-25-2024 ambulatory [facility] Facility:[facility] Start: 10-25-2024 Dr. Gonzalo Lomax MD -[facility] Start: 10-24-2024 End: 10-24-2024 Transitional care manage srvc 7 day discharge Lizy Capone MD Work Phone: [facility] Comment on above: BENIGN HYPERTENSION( aka HTN) (Primary Dx); Seizures (HCC); Hypothyroidism, acquired; Renal failure, unspecified chronicity; CKD (chronic kidney disease) stage 4, GFR 15-29 ml/min (HCC); Insomnia, unspecified type; Recurrent UTI (urinary tract infection); Bilateral leg edema Start: 10-24-2024 End: 10-24-2024 ambulatory LIZY CAPONE Facility:[facility] Start: 10-24-2024 End: 11-03-2024 ambulatory Miryam Russell STOPER-C Work Phone: -[facility] [place] Start: 10-24-2024 End: 11-03-2024 Dr. Gonzalo Lomax MD -Wound Healing [facility] Work Phone: Start: 10-21-2024 End: 10-24-2024 Patient Outreach Alex Lackey MA [facility] Comment on above: Transition Of Care Patient Update Start: 10-20-2024 End: 10-20-2024 Telephone encounter Lizy Capone MD Work Phone: [facility] Comment on above: Follow HH Start: 10-14-2024 ambulatory Miryam Orozco Facility :[facility] Start: 10-14-2024 William Friend DO -[facility] Start: 10-14-2024 End: 10-14-2024 William Rodgers DO -Endoscopy Work Phone: Start: 10-14-2024 End: 10-14-2024 ambulatory Miryam Serraf STOPER-C Work Phone: -Endoscopy Start: 10-12-2024 End: 10-12-2024 Miryam Orozco STOPER-C Work Phone: -Emergency Department Work Phone: Start: 10-12-2024 End: 10-12-2024 Emergency department patient visit Miryampoonam Orozco STOPER-C Work Phone: -Emergency Department Start: 10-11-2024 ambulatory Russell Gonzalez Facility:[facility] Start: 10-11-2024 Dr. Russell Gonzalez MD -[facility] Start: 10-11-2024 End: 10-11-2024 ambulatory Miryam Orozco STOPER-C Work Phone: -Cardiovascular Services Start: 10-11-2024 End: 10-11-2024 Dr. Gautam Hardy MD -Cardiovascular Services Work Phone: Start: 10-10-2024 End: 10-11-2024 ambulatory Miryam Kimballpat Facility:[facility] Start: 10-10-2024 Dr. oGnzalo Lomax MD -[facility] Start: 10-04-2024 End: 10-20-2024 Dr. Gautam Hardy MD -Transitional Care Unit Start: 10-04-2024 End: 10-20-2024 [facility] Work Phone: -Trans[facility] Care Unit Start: 10-04-2024 Dr. Alex Acosta DO -[facility] Work Phone: Start: 10-04-2024 Dr. Chayo Hernandez MD -[facility] Work Phone: Start: 10-03-2024 Dr. Alex Acosta DO -[facility] Work Phone: Start: 10-02-2024 Dr. Alex Acosta DO -[facility] Work Phone: Start: 10-01-2024 Dr. Alex Acosta DO -[facility] Work Phone: Start: 09-30-2024 Dr. Russell Todd DO -[facility] Work Phone: Start: 09-29-2024 End: 09-30-2024 Telephone encounter Lizy Capone MD Work Phone: [facility] Comment on above: Patient Update Start: 09-29-2024 Dr. Russell [facility]IGUE[facility] Work Phone: Start: 09-28-2024 ambulatory Michelle Gallardo Facility :[facility] Start: 09-28-2024 End: 10-04-2024 Evaluation and management of inpatient Miryam Orozco STOPER-C Work Phone: [facility] Work Phone: Start: 09-28-2024 End: 10-04-2024 Dr. Michelle Gallardo MD -Progressive Care Unit Work Phone: Start: 09-22-2024 End: 09-22-2024 Office outpatient visit 25 minutes Lizy Capone MD Work Phone: [facility] Comment on above: BENIGN HYPERTENSION( aka HTN) (Primary Dx); Lumbar spondylosis; Myofascial pain; Hypothyroidism, acquired; Anemia in chronic kidney disease, unspecified CKD stage; CKD (chronic kidney disease) stage 4, GFR 15-29 ml/min (HCC); Bilateral leg edema Start: 09-22-2024 End: 09-22-2024 ambulatory LIZY CAPONE Facility:[facility] Start: 09-20-2024 End: 09-20-2024 Follow-up encounter Lizy Capone MD Work Phone: [facility] Start: 09-20-2024 ambulatory Gonzalo Lomax Facility:[facility] Start: 09-20-2024 Dr. Gonzalo Lomax MD - H-WPS Start: 09-19-2024 End: 10-03-2024 ambulatory Miryam Serraf STOPER-C Work Phone: -[facility] Start: 09-19-2024 End: 10-03-2024 Dr[facility] Work [facility]: Start: 09-15-2024 End: 09-15-2024 Patient encounter procedure Michael Carter APRN.MRI MANAGER Work Phone: [facility] Comment on above: Subacute cough (Prim maximus Dx); Leg swelling; SOB (shortness of breath); Lower respiratory infection Start: 09-15-2024 End: 09-15-2024 ambulatory MICHAEL CARTER Facility:[facility] Start: 09-14-2024 End: 09-15-2024 Telephone encounter Lizy Capone MD Work Phone: [facility] Comment on above: Results Start: 09-12-2024 ambulatory LIZY Shannon ity:[facility] Start: 09-12-2024 End: 09-12-2024 Subsequent hospital visit by physician Tereso [facility] Work Phone: Radiology Comment on above: Subacute cough [R05. 2] Start: 09-12-2024 ambulatory Gonzalo Lomax Facility[facility] Start: 09-12-2024 Dr. Gonzalo Lomax MD - H-W[facility] Start: 09-12-2024 End: 09-12-2024 Telephone encounter Lizy Capone MD Work Phone: [facility] Comment on above: Patient Question; Or ders Start: 09-07-2024 End: 09-08-2024 Telephone encounter Lizy Capone MD Work Phone: [facility] Comment on above: Patient Update Start: 09-06-2024 End: 09-06-2024 Dr. Gonzalo Lomax MD -[facility] Day [facility] Start: 09-06-2024 End: 09-06-2024 ambulatory Miryam Orozco STOPER-C Work Phone: [facility] Work Phone: Start: 09-05-2024 End: 09-05-2024 Telephone encounter Lizy Capone MD Work Phone: [facility] Comment on above: Medication Question Start: 09-05-2024 End: 09-05-2024 Dr. Mehdi Womack MD -[facility] Work Phone: Start: 09-05-2024 End: 09-05-2024 ambulatory Miryam Orozco STOPER-C Work Phone: [facility] Work Phone: Start: 09-04-2024 End: 09-04-2024 ambulatory SELF Facility:[facility] Start: 09-04-2024 End: 09-05-2024 Patient encounter procedure Deacon Valdez BUSINESS OFFICE TECHNOLOGY INSTRUCTOR.MRI MANAGER Work Phone: [facility] Comment on above: Lower respiratory in fection (Primary Dx) Refill Request Start: 09-01-2024 End: 09-03-2024 ambulatory Miryam Orozco STOPER-C Work Phone: [facility] Work Phone: Start: 09-01-2024 End: 09-03-2024 Dr. Gonzalo Lomax MD -[facility] Work Phone: Start: 08-30-2024 End: 09-01-2024 Telephone encounter Lizy Capone MD Work Phone: [facility] Comment on above: Patient Update Start: 08-23-2024 End: 08-23-2024 ambulatory Miryam Orozco STOPER-C Work Phone: [facility][Note 2] Start: 08-23-2024 End: 08-23-2024 Dr. Gustavo Castorena MD -[facility] Work Phone: Start: 08-22-2024 End: 08-22-2024 ambulatory [facility] Facility:[facility] Start: 08-22-2024 End: 08-22-2024 Office outpatient visit 25 minutes Lizy Capone MD Work Phone: 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 Gonzalo Lara H-WPS Start: 08-18-2024 ambulatory [facility] Facility :[facility] Start: 08-18-2024 Gustavo Lara Gerry Turcios Start: 08-16-2024 ambulatory [facility] Facility :[facility] Start: 08-16-2024 Gustavo Turcios Start: 08-15-2024 ambulatory [facility] Start: 08-15-2024 Dr. Gonzalo Lara H-[facility] Start: 08-12-2024 End: 08-12-2024 Dr. Gonzalo Lomax MD -[facility] Work Phone: Start: 08-12-2024 End: 08-12-2024 ambulatory Gonzalo Lomax Facility:[facility] Start: 08-08-2024 ambulatory Gustavo Castorena OLS Fa cility:[facility] Start: 08-08-2024 Gustavo Lara Gerry Turcios Start: 08-01-2024 End: 08-01-2024 ambulatory Miryampoonam Kimballhof STOPER-C Work Phone: -[facility] Start: 08-01-2024 End: 08-01-2024 Gustavo LaraGerry Turcios Start: 07-29-2024 End: 07-29-2024 Miryampoonam Kimballhof STOPER-C Work Phone: -Emergency Department Work Phone: Start: 07-29-2024 End: 07-29-2024 Emergency department patient visit Miryam Kimballhof STOPER-C Work Phone: [facility] Work Phone: Start: 07-25-2024 ambulatory [facility] Facility :[facility] Start: 07-25-2024 Gustavo Lara Gerry Turcios Start: 07-20-2024 End: 07-20-2024 ambulatory Miryam Kimballhof STOPER-C Work Phone: [facility] Work Phone: Start: 07-20-2024 End: 07-20-2024 [facility]: Start: 07-18-2024 [facility]ulatory [facility] Start: 07-18-2024 Gustavo Turcios Start: 07-11-2024 ambulatory [facility] Facility :[facility] Start: 07-11-2024 Gustavo Turcios Start: 07-04-2024 ambulatory [facility] Facility :[facility] Start: 07-04-2024 Gustavo Turcios Start: 07-01-2024 End: 07-04-2024 Refill Lizy Capone MD Work Phone: [facility] Comment on above: Refill Request Start: 06-27-2024 ambulatory [facility] Facility :[facility] Start: 06-27-2024 Gustavo Turcios Start: 06-22-2024 End: 06-22-2024 ambulatory [facility] Start: 06-22-2024 End: 06-22-2024 [facility] Work [facility]: Start: 06-20-2024 ambulatory [facility] Facility :[facility] Start: 06-20-2024 Gustavo Turcios Start: 06-14-2024 End: 06-14-2024 ambulatory [facility] Facility:[facility] Start: 06-14-2024 End: 06-14-2024 [facility]. [facility] Work Phone: Start: 06-13-2024 End: 06-13-2024 [facility] Start: 06-13-2024 End: 06-13-2024 Gustavo Turcios Start: 06-10-2024 Dr. Mari Mehta [facility] Work Phone: Start: 06-09-2024 Dr. Mari Mehta [facility] Work Phone: Start: 06-07-2024 Chrsita Michel RN -[facility] Work Phone: Start: 06-07-2024 ambulatory [facility] Facility :[facility] Start: 06-07-2024 Dr. Mari Mehta [facility] Work Phone: Start: 06-06-2024 Dr. Mari Mehta [facility] Work Phone: Start: 06-02-2024 Dr. Mari Mehta [facility] Work Phone: Start: 05-31-2024 Dr. Mari Mehta [facility] Work Phone: Start: 05-30-2024 Dr. Mari Mehta [facility] Work Phone: Start: 05-27-2024 Dr. Mari Mehta [facility] Work Phone: Start: 05-26-2024 Dr. Mari Mehta [facility] Work Phone: Start: 05-23-2024 Dr. Mari Mehta [facility] Work Phone: Start: 05-20-2024 Dr. Mari Mehta [facility] Work Phone: Start: 05-19-2024 Dr. Mari Mehta [facility] Work Phone: Start: 05-18-2024 ambulatory Mari Mehta Facility:[facility] Start: 05-18-2024 End: 06-10-2024 Evaluation and management of inpatient Amir Adeli Facility:[facility] Start: 05-18-2024 End: 06-10-2024 Dr. Mari Mehta DO -Rehab Unit Work Phone: Start: 05-04-2024 End: 05-04-2024 ambulatory UNKNOWN PROVIDER Facility:[facility] Start: 05-04-2024 End: 05-18-2024 Evaluation and management of inpatient Kindra Gannon MD Work Phone: [id number] Start: 05-04-2024 Dr. Edgar Davies DO -[facility] Start: 05-03-2024 Dr. Edgar Davies DO -[facility] Start: 05-02-2024 End: 05-02-2024 Telephone encounter Lizy Capone MD Work Phone: [facility] [place] Comment on above: Patient Update Start: 05-02-2024 Dr. Edgar Davies DO -[facility] Start: 05-02-2024 Dr. Ralph Haynes MD -[facility] Work Phone: Start: 05-02-2024 End: 05-02-2024 ambulatory Miryam Orozco Facility:[facility] Start: 05-02-2024 End: 05-02-2024 Dr. Hua Arellano MD -[place] [facility] Work Phone: Start: 05-01-2024 ambulatory Bernarda Becerril [facility] Start: 05-01-2024 End: 05-04-2024 Evaluation and management of inpatient Bernarda Becerril Facility:[facility] Start: 05-01-2024 End: 05-04-2024 Dr. Adithya Harrell MD -Intensive Care Uni t Work Phone: Start: 04-28-2024 End: 04-28-2024 ambulatory Miryam Orozco STOPER-C Work Phone: [facility] Work Phone: Start: 04-28-2024 End: 04-28-2024 Dr. Mari Mehta DO -Physical Therapy Work Phone: Start: 03-16-2024 End: 03-16-2024 ambulatory LIZY CAPONE Facility:[facility] Start: 03-07-2024 End: 03-07-2024 Refill Miryam Orozco APRN.MRI MANAGER Work Phone: [facility] Comment on above: Refill Request Start: 03-04-2024 End: 03-04-2024 ambulatory [facility] Start: 03-01-2024 ambulatory [facility] Facility :[facility] Start: 02-24-2024 ambulatory Mari Mehta Facility:[facility] Start: 02-24-2024 End: 03-03-2024 Evaluation and management of inpatient [facility] Facility:[facility] Start: 02-16-2024 End: 02-16-2024 ambulatory [facility] Facility:[facility] Start: 02-12-2024 End: 02-12-2024 Telephone encounter Lizy Capone MD Work Phone: [facility] Comment on above: medical clearance fo rm ([facility] for shoulder surgery) Start: 02-09-2024 Patient encounter status Parminder Orozco STOPER-C Work Phone: [facility] Start: 02-09-2024 Encounter for other preprocedural examination Energygerry Jackson [facility] Start: 02-09-2024 End: 02-09-2024 ambulatory Miryam [facility] Facility:[facility] Start: 01-28-2024 End: 01-28-2024 Patient encounter procedure Miryam Orozco APRN.MRI MANAGER Work Phone: [facility] Comment on above: BENIGN HYPERTENSION( aka HTN) (Primary Dx); Hyperlipidemia LDL goal <100; Leg swelling; Balance problem; Female stress incontinence; Hypothyroidism, acquired; Insomnia, unspecified type; CKD (chronic kidney disease) stage 4, GFR 15-29 ml/min ([facility]); Chronic shoulder pain, unspecified laterality; Chronic right-sided low back pain without sciatica; Chronic knee pain, unspecified laterality; Encounter for immunization Start: 01-28-2024 End: 01-28-2024 ambulatory LIZY CAPONE Facility:[facility] Start: 01-26-2024 End: 01-26-2024 ambulatory [facility] Facility:[facility] Start: 12-29-2023 End: 02-08-2024 Telephone encounter Stephanie Jackson MD Work Phone: Orthopaedics Comment on above: Appointment Start: 12-17-2023 End: 12-17-2023 Patient encounter procedure Roque Delgado MD Work Phone: [facility] Comment on above: 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 Comment on above: Results (Labs ) Start: 12-14-2023 End: 12-14-2023 Telephone encounter Miryam Orozco APRN.CNP Work Phone: [facility] Comment on above: Returning Patient's Call Start: 12-14-2023 End: 12-14-2023 ambulatory [facility] Facility:[facility] Start: 12-11-2023 End: 12-11-2023 Refill Miryam Orozco APRN.CNP Work Phone: [facility] Comment on above: Refill Request Start: 12-04-2023 End: 12-04-2023 ambulatory STARR MARQUES Facility:[facility] Start: 12-04-2023 End: 12-04-2023 Patient encounter procedure Starr Marques MD Work Phone: OB/Gynecology Comment on above: Complex endometrial hyperplasia with atypia (Primary Dx); IUD (intrauterine device) in place Start: 12-01-2023 End: 12-01-2023 ambulatory Miryam Orozco Facility:[facility] Start: 11-18-2023 Telephone encounter Roque Delgado MD Work Phone: [facility] Comment on above: Procedure Start: 11-16-2023 End: 11-16-2023 Patient encounter procedure Roque Delgado MD Work Phone: [facility] Start: 11-16-2023 End: 11-16-2023 ambulatory Roque Delgado MD Work Phone: [facility] Comment on above: Procedure; Pain (Marie ulder Pain) (RFA Right suprascapular) Start: 11-15-2023 Refill Mulugeta ÁLVAREZ RN.MRI MANAGER Work Phone: [facility] [place] Comment on above: Refill Request Start: 11-09-2023 End: 11-09-2023 Patient encounter procedure Miryam Russell CHRISTINE.MRI MANAGER Work Phone: [facility] [place] Comment on above: Dizziness (Primary D x); BENIGN HYPERTENSION(aka HTN); Hyperlipidemia LDL goal <100; Leg swelling; CKD (chronic kidney disease) stage 4, GFR 15-29 ml/min (HCC); Female stress incontinence; Chronic right-sided low back pain without sciatica; Chronic knee pain, unspecified laterality; Chronic shoulder pain, unspecified laterality; Hypothyroidism, acquired; Insomnia, unspecified type Start: 11-09-2023 End: 11-09-2023 ambulatory LIZY CAPONE Facility:[facility] Start: 10-28-2023 Telephone encounter Roque Delgado MD Work Phone: [facility] Comment on above: Injections Start: 10-27-2023 Telephone encounter Roque Delgado MD Work Phone: [facility] Comment on above: Returning Patient's Call Start: 09-28-2023 Refill Lizy bran MD Work Phone: [facility] [place] Comment on above: Refill Request Start: 09-21-2023 Refill Lizy bran MD Work Phone: [facility] [place] Comment on above: Refill Request Start: 08-28-2023 Telephone encounter Roque Delgado MD Work Phone: [facility] Start: 08-27-2023 Telephone encounter Roque Delgado MD Work Phone: [facility] Comment on above: Returning Patient's Call Start: 08-14-2023 End: 08-14-2023 ambulatory Keyana Greenberg MIAMarcoAngel Work Phone: [facility] Comment on above: 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); Lumbar spondylosis; Myofascial pain; Pleurodynia Start: 08-14-2023 End: 08-14-2023 Telemedicine consultation with patient Keyana Greenberg MIAMarcoAngel Work Phone: [facility] Start: 08-14-2023 End: 08-14-2023 ambulatory KEYANA GREENBERG Facility:[facility] Start: 07-22-2023 End: 07-22-2023 Patient encounter procedure Miryam Orozco APRN.CNP Work Phone: [facility] Comment on above: 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); Chronic right-sided low back pain without sciatica; Chronic knee pain, unspecified laterality; Chronic shoulder pain, unspecified laterality; Leg swelling; CKD (chronic kidney disease) stage 4, GFR 15-29 ml/min (HCC); BENIGN HYPERTENSION(aka HTN); Hypothyroidism, acquired; Hyperlipidemia LDL goal <100; Insomnia, unspecified type; Chronic constipation Start: 07-15-2023 End: 07-15-2023 Patient encounter procedure Roque Delgado MD Work Phone: [facility] Start: 07-15-2023 End: 07-15-2023 ambulatory Roque Delgado MD Work Phone: [facility] Comment on above: Procedure (rfa); Chris n (Shoulder Pain) (left) Start: 06-29-2023 Refill Lizy bran MD Work Phone: [facility] Comment on above: Refill Request Start: 06-22-2023 Refill Miryam Orozco APRN.MRI MANAGER Work Phone: [facility] Comment on above: Refill Request Start: 06-16-2023 Refill Roque Delgado MD Work Phone: [facility] Comment on above: Refill Request Start: 06-09-2023 Non-patient / Non-visit Dr. Pravin Toney Work Phone: [facility] Work Phone: Start: 06-08-2023 Non-patient / Non-visit Dr. Pravin Toney Work Phone: [facility] Work Phone: Start: 06-08-2023 End: 06-09-2023 Evaluation and management of inpatient [facility] Work Phone: Start: 06-04-2023 Telephone encounter Rebekah Pradhan Benjamin BUSINESS OFFICE TECHNOLOGY INSTRUCTOR.MRI MANAGER Work Phone: [facility] Comment on above: Injection Questions Start: 06-02-2023 End: 06-02-2023 ambulatory Rebekah Pradhan Benjamin BUSINESS OFFICE TECHNOLOGY INSTRUCTOR.MRI MANAGER Work Phone: [facility] Comment on above: 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) Start: 06-02-2023 End: 06-02-2023 Telemedicine consultation with patient Rebekah Pradhan Benjamin CHRISTINE.MRI MANAGER Work Phone: [facility] Start: 06-02-2023 End: 06-02-2023 ambulatory REBEKAH LEIGH BOBO Facility:[facility] Start: 05-20-2023 Telephone encounter Roque Delgado MD Work Phone: [facility] Comment on above: Procedure Start: 05-18-2023 End: 05-18-2023 Patient encounter procedure Roque Delgado MD Work Phone: [facility] Start: 05-18-2023 End: 05-18-2023 ambulatory Roque Delgado MD Work Phone: [facility] Comment on above: Procedure Start: 04-16-2023 End: 04-16-2023 ambulatory ROQUE DELGADO Facility:[facility] Start: 03-31-2023 End: 03-31-2023 Subsequent hospital visit by physician Xr [facility] Work Phone: Radiology Comment on above: Acute cough [R05.1] Start: 03-02-2023 End: 03-02-2023 ambulatory Rebekah Bobo BUSINESS OFFICE TECHNOLOGY INSTRUCTOR.MRI MANAGER Work Phone: [facility] Comment on above: 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) Start: 03-02-2023 End: 03-02-2023 Telemedicine consultation with patient Rebekah Bobo BUSINESS OFFICE TECHNOLOGY INSTRUCTOR.MRI MANAGER Work Phone: [facility] Start: 03-02-2023 End: 03-03-2023 ambulatory [facility] Facility:[facility] Start: 02-16-2023 End: 02-16-2023 Patient encounter procedure Roque Delgado MD Work Phone: [facility] Start: 02-16-2023 End: 02-16-2023 ambulatory Roque Delgado MD Work Phone: [facility] Comment on above: Procedure (Glenohume ral Joint injection - bilateral) Start: 01-15-2023 Telephone encounter Roque Delgado MD Work Phone: [facility] Comment on above: Injection Questions Start: 01-15-2023 End: 01-15-2023 Subsequent hospital visit by physician Tereso [facility] Liu Work Phone: Radiology Comment on above: 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 Comment on above: Results (Labs ) Start: 12-22-2022 End: 12-22-2022 Patient encounter procedure Miryam Orozco NANCI.MRI MANAGER Work Phone: [facility] Comment on above: 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); Chronic right-sided low back pain without sciatica; BENIGN HYPERTENSION(aka HTN); Hypothyroidism, acquired; Insomnia, unspecified type; Leg swelling; Decreased glomerular filtration rate (GFR); Chronic knee pain, unspecified laterality; Acute pain of left shoulder Start: 12-04-2022 Refill Roque Delgado MD Work Phone: [facility] Comment on above: Refill Request Start: 10-16-2022 End: 10-16-2022 Patient encounter procedure Roque Delgado MD Work Phone: [facility] Comment on above: Lumbar spondylosis ( Primary Dx); Myofascial pain Start: 10-15-2022 End: 10-15-[address] Lizy Capone Work Phone: [facility] Work Phone: Start: 10-15-2022 End: 10-15-[address] Lizy Capone Work Phone: [facility]-Laboratory, Phy Office 3rd Flr Start: 10-08-2022 Refill Lizy bran MD Work Phone: [facility] Comment on above: Refill Request Start: 10-03-2022 End: 10-03-[address] Lizy Capone Work Phone: [facility] Work Phone: Start: 10-02-2022 End: 10-02-2022 Patient encounter procedure Roque Delgado MD Work Phone: [facility] Comment on above: Lumbar spondylosis ( Primary Dx); Chronic bilateral low back pain without sciatica Start: 08-13-2022 End: 08-13-2022 ambulatory Roque Delgado MD Work Phone: [facility] Comment on above: Procedure Start: 08-13-2022 End: 08-13-2022 Patient encounter procedure Roque Delgado MD Work Phone: [facility] Start: 08-04-2022 Telephone encounter Roque Delgado MD Work Phone: [facility] Comment on above: Results Start: 08-01-2022 End: 08-01-2022 Admission to same day surgery center Dr. Lizy Capone Work Phone: [facility]-Transcription Specialist/Special Procedures Start: 08-01-2022 End: 08-01-[address] Lizy Capone Work Phone: [facility] Work Phone: Start: 07-31-2022 Non-patient / Non-visit Dr. Manjeet Capone Work Phone: [facility] Start: 07-31-2022 End: 07-31-2022 Subsequent hospital visit by physician [facility] Work Phone: Radiology Comment on above: Closed fracture of b ase of fifth metatarsal bone of right foot at metaphyseal-diaphyseal junction, initial encounter [S99.191A] Start: 07-30-2022 End: 07-30-2022 ambulatory Roque Delgado MD Work Phone: [facility] Comment on above: Procedure (SPR) Start: 07-30-2022 End: 07-30-2022 Patient encounter procedure Roque Delgado MD Work Phone: [facility] Start: 07-14-2022 Refill Lizy bran MD Work Phone: [facility] Comment on above: Refill Request (OUT OF MEDICATION) Start: 07-07-2022 Non-patient / Non-visit Dr. Manjeet Capone Work Phone: [facility] Start: 07-02-2022 End: 07-02-2022 Patient encounter procedure Roque Delgado MD Work Phone: [facility] Comment on above: Canceled (Pt cx: Carey ointment Conflict) Start: 06-30-2022 Telephone encounter Mulugeta garrett APRN.MRI MANAGER Work Phone: [facility] Comment on above: Results Start: 06-30-2022 End: 06-30-2022 Patient encounter procedure Ragini Gomes BUSINESS OFFICE TECHNOLOGY INSTRUCTOR.MRI MANAGER Work Phone (unformatted): [phone] [employer] [facility] [facility] Comment on above: 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); Urge urinary incontinence Start: 06-27-2022 Telephone encounter Mulugeta garrett APRN.MRI MANAGER Work Phone: [facility] Comment on above: Results Start: 06-27-2022 End: 06-27-[address] Lizy Capone Work Phone: [facility] Start: 06-26-2022 End: 06-26-2022 Patient encounter procedure Miryam Orozco BUSINESS OFFICE TECHNOLOGY INSTRUCTOR.MRI MANAGER Work Phone: [facility] Comment on above: Dysuria (Primary Dx) ; Female stress incontinence; Leg swelling; Chronic knee pain, unspecified laterality; Chronic right-sided low back pain without sciatica; Change in stool Start: 06-11-2022 End: 06-11-[address] Lizy Capone Work Phone: [facility] Work Phone: Start: 06-11-2022 End: 06-11-[address] Lizy Capone Work Phone: [facility]-Laboratory Start: 06-04-2022 Telephone encounter Roque Delgado MD Work Phone: [facility] Comment on above: Appointment ([facility] ed for SPR device) Start: 05-30-2022 Telephone encounter Roque Delgado MD Work Phone: [facility] Comment on above: Appointment Start: 05-26-[address] MD Work Phone: [employer] [facility] Comment on above: Consult Start: 05-19-2022 Telephone encounter Miryam guzman BUSINESS OFFICE TECHNOLOGY INSTRUCTOR.MRI MANAGER Work Phone: [facility] Comment on above: Appointment Start: 05-15-2022 Telephone encounter Roque Delgado MD Work Phone: [facility] Comment on above: Injections Start: 05-14-2022 End: 05-14-[address] Lizy Capone Work Phone: [facility] Work Phone: Start: 05-14-2022 End: 05-14-[address] Lizy Capone Work Phone: [facility]-Laboratory, Phy Office 3rd Flr Start: 05-13-2022 End: 05-13-2022 Subsequent hospital visit by physician Xr [facility] Work Phone: Radiology Comment on above: Fall, initial encoun ter [W19.XXXA] Start: 05-13-2022 End: 05-13-2022 Patient encounter procedure Jae Cagle MD Work Phone: General Surgery Comment on above: C. difficile colitis (Primary Dx); Rectal bleeding; Change in stool; Fall, initial encounter Start: 05-06-2022 Telephone encounter Noemy grewal BUSINESS OFFICE TECHNOLOGY INSTRUCTOR.MRI MANAGER Work Phone: [facility] Comment on above: Results Start: 04-30-2022 Telephone encounter Miryam guzman BUSINESS OFFICE TECHNOLOGY INSTRUCTOR.MRI MANAGER Work Phone: [facility] Comment on above: Results Start: 04-29-2022 End: 04-29-2022 Subsequent hospital visit by physician Mri [facility] (I-Stat/1.5t) Work Phone: Radiology Comment on above: Lumbar spondylosis [ M47.816] Start: 04-28-2022 Telephone encounter Lizy lucero MD Work Phone: [facility] Comment on above: MRI request Start: 04-17-2022 Refill Lizy bran MD Work Phone: [facility] Comment on above: Refill Request Start: 04-16-2022 Refill Mulugeta ÁLVAREZ RN.MRI MANAGER Work Phone: [facility] Comment on above: Refill Request Start: 03-19-2022 End: 03-19-[address] Lizy Capone Work Phone: [facility] Work Phone: Start: 03-19-2022 End: 03-19-[address] [facility] Cap[facility] Start: 03-06-2022 End: 03-06-[address] Liz[facility] Cap[facility] Start: 03-06-2022 End: 03-06-[address] Lizy Capone Work Phone: [facility] Start: 03-04-2022 End: 03-04-2022 ambulatory Natalia Perdomo [facility] Comment on above: Population Health Na vigation Outreach (HCC Gaps) Start: 03-04-2022 End: 03-04-[address] Liz[facility] Cap[facility] Start: 02-13-2022 Non-patient / Non-visit Dr. Manjeet Capone Work Phone: [facility] Start: 02-13-2022 Orders Only Roque Delgado MD Work Phone: [facility] Comment on above: Lumbar spondylosis ( Primary Dx) requesting prescript ion Start: 01-30-2022 End: 01-30-2022 Patient encounter procedure Roque Delgado MD Work Phone: [facility] Comment on above: Lumbar spondylosis ( Primary Dx); Myofascial pain Start: 01-30-2022 Telephone encounter Roque Delgado MD Work Phone: [facility] Comment on above: Patient Update (Inje ction questions for lodi) Start: 01-28-2022 End: 01-28-[address] Lizy Capone Work Phone: [facility] Work Phone: Start: 01-28-2022 End: 01-28-[address] Lizy Capone Work Phone: [facility]-Laboratory Start: 01-20-2022 Refill Lizy bran MD Work Phone: [facility] Comment on above: Refill Request Start: 01-14-2022 End: 01-14-[address] Lizy Capone Work Phone: [facility] [facility] Start: 01-14-2022 Telephone encounter Rebekah Bobo BUSINESS OFFICE TECHNOLOGY INSTRUCTOR.MRI MANAGER Work Phone: [facility] Comment on above: error Start: 01-08-2022 Telephone encounter Miryam castellonof BUSINESS OFFICE TECHNOLOGY INSTRUCTOR.MRI MANAGER Work Phone: [facility] Comment on above: Results (Labs ) Start: 01-08-2022 End: 01-08-2022 Subsequent hospital visit by physician Roque Delgado MD Work Phone: [facility] Comment on above: Lumbar spondylosis [ M47.816] Start: 01-07-2022 Telephone encounter Lizy lucero MD Work Phone: [facility] Comment on above: Faxed Referral Start: 01-06-2022 End: 01-06-2022 ambulatory Allison Pryor PT [facility] Comment on above: Lymphedema (Primary Dx) Start: 01-03-2022 End: 01-03-2022 Subsequent hospital visit by physician [facility] Work Phone: Radiology Comment on above: Abdominal distension [R14.0] Start: 01-02-2022 End: 01-02-2022 Patient encounter procedure Miryam Orozco BUSINESS OFFICE TECHNOLOGY INSTRUCTOR.MRI MANAGER Work Phone: [facility] Comment on above: Leg swelling (Primar y Dx); Shortness of breath ; Abdominal distension; Function kidney decreased Start: 01-01-2022 End: 01-01-2022 ambulatory Alliosn Pryor PT [facility] Comment on above: Lymphedema (Primary Dx) Start: 12-26-2021 End: 12-26-2021 ambulatory Avis Dede Yaron BUSINESS OFFICE TECHNOLOGY INSTRUCTOR.MRI MANAGER Work Phone: [facility] Comment on above: Lumbar spondylosis ( Primary Dx); Myofascial pain; Other chronic pain Start: 12-26-2021 End: 12-26-2021 Telemedicine consultation with patient Avis Españafield BUSINESS OFFICE TECHNOLOGY INSTRUCTOR.MRI MANAGER Work Phone: [facility] Start: 12-26-2021 End: 12-26-[address] Lizy Capone Work Phone: [facility] Work Phone: Start: 12-26-2021 End: 12-26-[address] Lizy Capone Work Phone: [facility] Start: 12-25-2021 End: 12-25-2021 Subsequent hospital visit by physician Roque Delgado MD Work Phone: [facility] Comment on above: Lumbar spondylosis [ M47.816] Start: 12-22-2021 Refill Avis snyder BUSINESS OFFICE TECHNOLOGY INSTRUCTOR.MRI MANAGER Work Phone: [facility] Comment on above: Refill Request Start: 12-19-2021 Non-patient / Non-visit Dr. Manjeet Capone Work Phone: [facility] Start: 12-19-2021 End: 12-19-[address] Lizy Capone Work Phone: [facility] Work Phone: Start: 12-19-2021 End: 12-19-[address] Liz[facility] Cap[facility] Start: 12-19-2021 End: 12-19-[address] Lizy Capone Work Phone: [facility] Start: 12-16-2021 End: 12-16-2021 ambulatory Allison Lemon PT [facility] Comment on above: Lymphedema (Primary Dx) Start: 12-11-2021 End: 12-11-2021 ambulatory Allison Lemon PT [facility] Comment on above: Lymphedema (Primary Dx) Start: 12-03-2021 Orders Only Roque Delgado MD Work Phone: [facility] Comment on above: Lumbar spondylosis ( Primary Dx) Start: 12-02-2021 End: 12-02-2021 ambulatory Allison Lemon PT [facility] Comment on above: Lymphedema (Primary Dx) Start: 11-26-2021 Refill Lizy bran MD Work Phone: [facility] Comment on above: Refill Request Start: 11-22-2021 End: 11-22-2021 ambulatory Allison Lemon PT [facility] Comment on above: Lymphedema (Primary Dx); Lumbar spondylosis; Thoracic spine pain; Myofascial pain Start: 11-13-2021 Orders Only Lizy bran MD Work Phone: [facility] Comment on above: Lymphedema (Primary Dx) Start: 11-12-2021 End: 11-12-2021 ambulatory Jerod Flynn PT [facility] Comment on above: Chronic midline low back pain with sciatica, sciatica laterality unspecified (Primary Dx) Start: 11-05-2021 End: 11-05-2021 ambulatory Jerod Gee PT [facility] Comment on above: Chronic midline low back pain with sciatica, sciatica laterality unspecified (Primary Dx) Start: 10-24-2021 Refill Lizy bran MD Work Phone: [facility] Comment on above: Refill Request Start: 10-22-2021 End: 10-22-2021 ambulatory Jerod Gee PT [facility] Comment on above: Chronic midline low back pain with sciatica, sciatica laterality unspecified (Primary Dx) Start: 10-21-2021 Orders Only Lizy bran MD Work Phone: [facility] Comment on above: Population Health Na vigation Outreach (HCC) Start: 10-01-2021 Refill Lizy bran MD Work Phone: [facility] Comment on above: Refill Request Start: 09-20-2021 End: 09-20-2021 Subsequent hospital visit by physician Xr [facility] Work Phone: Radiology Comment on above: Lumbar spondylosis [ M47.816] Start: 09-19-2021 Telephone encounter Avis aquino APRN.MRI MANAGER Work Phone: [facility] Comment on above: Patient Update (Cons ult ) Start: 09-19-2021 End: 09-19-2021 Patient encounter procedure Avis Marrufo BUSINESS OFFICE TECHNOLOGY INSTRUCTOR.MRI MANAGER Work Phone: [facility] Comment on above: Lumbar spondylosis ( Primary Dx); Other chronic pain; Thoracic spine pain; Myofascial pain Start: 09-17-2021 End: 09-17-[address] Lizy Capone Work Phone: [facility] Start: 09-12-2021 Refill Lizy bran MD Work Phone: [facility] Comment on above: Refill Request Start: 08-29-2021 Non-patient / Non-visit Dr. Manjeet Capone Work Phone: [facility] Start: 08-29-2021 End: 08-29-[address] Lizy Capone Work Phone: [facility] Start: 08-06-2021 End: 08-06-[address] Lizy Capone Work Phone: [facility] Start: 08-01-2021 Telephone encounter Lizy lucero MD Work Phone: [facility] Comment on above: Results - Ct Start: 07-26-2021 Refill Lizy bran MD Work Phone: [facility] Comment on above: Refill Request Start: 07-25-2021 End: 07-25-2021 Subsequent hospital visit by physician [facility] (I-Stat) Work Phone: Cat Scan Comment on above: Left upper quadrant abdominal pain [R10.12] Start: 07-18-2021 Telephone encounter Lizy lucero MD Work Phone: [facility] Comment on above: Results Start: 07-16-2021 End: 07-16-2021 Subsequent hospital visit by physician Xr [facility] Work Phone: Radiology Comment on above: SOB (shortness of br eath) [R06.02] Start: 07-16-2021 End: 07-16-2021 Patient encounter procedure Lizy Capone MD Work Phone: [facility] Comment on above: BENIGN HYPERTENSION( aka HTN) (Primary Dx); Insomnia, unspecified type; Hypothyroidism, acquired; Bilateral leg edema; Female stress incontinence; Dyspepsia; Upper back pain; Change in bowel function; SOB (shortness of breath); Rib pain on left side Procedures Date Procedure Procedure Detail Performing Clinician Start: 11-07-2024 Mean corpuscular hemoglobin concentration determination Miryam Orozco [facility] Work Phone: Start: 11-07-2024 Platelet mean volume determination Parminder Orozco [facility] Work Phone: Start: 11-01-2024 Estimated creatinine clearance Miryam saravia [facility] Work Phone: Start: 10-31-2024 Blood count smear mcrscp w/mnl difrntl wbc count Miryam Orozco [facility] Work Phone: Start: 10-31-2024 Mean corpuscular hemoglobin concentration determination Miryam Orozco [facility] Work Phone: Start: 10-31-2024 Nucleated red blood cell count procedure Miryam Orozco [facility] Work Phone: Start: 10-31-2024 Platelet mean volume determination Parminder Kimballhof [facility] Work Phone: Start: 10-29-2024 Plain chest X-ray Miryam Orozco [facility] Work Phone: Start: 10-29-2024 Urine microscopy: red cells Miryam Tai [facility] Work Phone: Start: 10-29-2024 Urnls dip stick/tablet reagent auto microscopy Miryam Orozco [facility] Work Phone: Start: 10-29-2024 Blood count smear mcrscp w/mnl difrntl wbc count Miryam Orozco [facility] Work Phone: Start: 10-29-2024 Estimated creatinine clearance Miryam contehof [facility] Work Phone: Start: 10-29-2024 Mean corpuscular hemoglobin concentration determination Miryam Orozco [facility] Work Phone: Start: 10-29-2024 Nucleated red blood cell count procedure Miryam Orozco [facility] Work Phone: Start: 10-29-2024 Platelet mean volume determination Parimnder Serraf [facility] Work Phone: Start: 10-19-2024 Blood count smear mcrscp w/mnl difrntl wbc count Miryam Orozco [facility] Work Phone: Start: 10-19-2024 Estimated creatinine clearance Miryam contehof [facility] Work Phone: Start: 10-19-2024 Mean corpuscular hemoglobin concentration determination Miryam Orozco [facility] Work Phone: Start: 10-19-2024 Nucleated red blood cell count procedure Miryam Tannhof [facility] Work Phone: Start: 10-19-2024 Platelet mean volume determination Parminder Orozco [facility] Work Phone: Start: 10-14-2024 Esophagogastroduodenoscopy Miryam hernandez [facility] Work Phone: Start: 10-13-2024 Measurement of occult blood in stool specimen using immunoassay Miryam Orozco [facility] Work Phone: Start: 10-12-2024 Blood count smear mcrscp w/mnl difrntl wbc count Miryam Orozco [facility] Work Phone: Start: 10-12-2024 Estimated creatinine clearance Miryam guerrerof [facility] Work Phone: Start: 10-12-2024 Mean corpuscular hemoglobin concentration determination Miryam Orozco [facility] Work Phone: Start: 10-12-2024 Nucleated red blood cell count procedure Miryam Orozco [facility] Work Phone: Start: 10-12-2024 Platelet mean volume determination Parminder Orozco [facility] Work Phone: Start: 10-12-2024 Blood count smear mcrscp w/mnl difrntl wbc count Miryam Orozco [facility] Work Phone: Start: 10-12-2024 Estimated creatinine clearance Miryam guerrerof [facility] Work Phone: Start: 10-12-2024 Mean corpuscular hemoglobin concentration determination Miryam Orozco [facility] Work Phone: Start: 10-12-2024 Nucleated red blood cell count procedure Miryam Orozco [facility] Work Phone: Start: 10-12-2024 Platelet mean volume determination Parminder y Russell [facility] Work Phone: Start: 10-06-2024 Urine microscopy: red cells Miryam Tai [facility] Work Phone: Start: 10-06-2024 Urnls dip stick/tablet reagent auto microscopy Miryam Tannhof [facility] Work Phone: Start: 10-06-2024 Urine culture Miryam Orozco [facility] Work Phone: Start: 10-04-2024 Estimated creatinine clearance Miryam contehof [facility] Work Phone: Start: 10-03-2024 Blood count smear mcrscp w/mnl difrntl wbc count Miryam Serraf [facility] Work Phone: Start: 10-03-2024 Estimated creatinine clearance Miryam contehof [facility] Work Phone: Start: 10-03-2024 Mean corpuscular hemoglobin concentration determination Miryam Serraf [facility] Work Phone: Start: 10-03-2024 Nucleated red blood cell count procedure Miryam Serraf [facility] Work Phone: Start: 10-03-2024 Platelet mean volume determination Parminder Serraf [facility] Work Phone: Start: 10-02-2024 Serum inorganic phosphate measurement Miryam Serraf [facility] Work Phone: Start: 10-01-2024 Carbon dioxide measurement, partial pressure Miryam Orozco [facility] Work Phone: Start: 10-01-2024 Gases blood o2 saturation only direct farheen Miryam Serraf [facility] Work Phone: Start: 10-01-2024 Measurement of partial pressure of oxygen in blood Miryam Serraf [facility] Work Phone: Start: 10-01-2024 Oxygen measurement Miryam Serraf [facility] Work Phone: Start: 09-30-2024 Urine culture Miryam Serraf [facility] Work Phone: Start: 09-29-2024 Urine culture Miryam Serraf [facility] Work Phone: Start: 09-28-2024 Complete ultrasound of kidneys and bladder Miryam Serraf [facility] Work Phone: Start: 09-28-2024 Urine microscopy: red cells Miryam Tai [facility] Work Phone: Start: 09-28-2024 Urnls dip stick/tablet reagent auto microscopy Miryam Orozco [facility] Work Phone: Start: 09-28-2024 Blood count smear mcrscp w/mnl difrntl wbc count Miryam Orozco [facility] Work Phone: Start: 09-28-2024 Mean corpuscular hemoglobin concentration determination Miryam Orozco [facility] Work Phone: Start: 09-28-2024 Nucleated red blood cell count procedure Miryam Orozco [facility] Work Phone: Start: 09-28-2024 Platelet mean volume determination Parminder Orozco [facility] Work Phone: Start: 09-28-2024 Triacylglycerol lipase measurement Parminder Orozco [facility] Work Phone: Start: 09-28-2024 X-ray of knee, one or two views Miryam brantley [facility] Work Phone: Start: 09-28-2024 CT of head without contrast Miryam Driscoll of [facility] Work Phone: Start: 09-28-2024 X-ray of knee, one or two views Miryam brantley [facility] Work Phone: Start: 09-06-2024 Procedure on wound Miryam Orozco [facility] Work Phone: Start: 08-22-2024 Blood count smear mcrscp w/mnl difrntl wbc count Miryam Orozco [facility] Work Phone: Start: 08-22-2024 Mean corpuscular hemoglobin concentration determination Miryam Orozco [facility] Work Phone: Start: 08-22-2024 Nucleated red blood cell count procedure Miryam Orozco [facility] Work Phone: Start: 08-22-2024 Platelet mean volume determination Parminder Orozco [facility] Work Phone: Start: 08-18-2024 Blood count smear mcrscp w/mnl difrntl wbc count Miryam Kimballhof [facility] Work Phone: Start: 08-18-2024 Mean corpuscular hemoglobin concentration determination Miryam Kimballhof [facility] Work Phone: Start: 08-18-2024 Nucleated red blood cell count procedure Miryam Kimballhof [facility] Work Phone: Start: 08-18-2024 Platelet mean volume determination Ashle y Tannhof [facility] Work Phone: Start: 08-16-2024 Blood count smear mcrscp w/mnl difrntl wbc count Miryam Kimballhof [facility] Work Phone: Start: 08-16-2024 Mean corpuscular hemoglobin concentration determination Miryam Kimballhof [facility] Work Phone: Start: 08-16-2024 Nucleated red blood cell count procedure Miryam Kimballhof [facility] Work Phone: Start: 08-16-2024 Platelet mean volume determination Tatele y Jigarhof [facility] Work Phone: Start: 08-08-2024 Blood count smear mcrscp w/mnl difrntl wbc count Miryam Kimballhof [facility] Work Phone: Start: 08-08-2024 Mean corpuscular hemoglobin concentration determination Miryam Kimballhof [facility] Work Phone: Start: 08-08-2024 Nucleated red blood cell count procedure Miryam Kimballhof [facility] Work Phone: Start: 08-08-2024 Platelet mean volume determination Tatele y Jigarhof [facility] Work Phone: Start: 08-01-2024 Blood count smear mcrscp w/mnl difrntl wbc count Miryam Kimballhof [facility] Work Phone: Start: 08-01-2024 Mean corpuscular hemoglobin concentration determination Miryam Kimballhof [facility] Work Phone: Start: 08-01-2024 Nucleated red blood cell count procedure Miryam Kimballhof [facility] Work Phone: Start: 08-01-2024 Platelet mean volume determination Tatele y Tannhof [facility] Work Phone: Start: 07-29-2024 Plain X-ray of tibia and fibula Miryam garcíahof [facility] Work Phone: Start: 07-25-2024 Blood count smear mcrscp w/mnl difrntl wbc count Miryam Kimballhof [facility] Work Phone: Start: 07-25-2024 Mean corpuscular hemoglobin concentration determination Miryam Kimballhof [facility] Work Phone: Start: 07-25-2024 Nucleated red blood cell count procedure Miryam Kimballhof [facility] Work Phone: Start: 07-25-2024 Platelet mean volume determination Parminder Kimballhof [facility] Work Phone: Start: 07-18-2024 Blood count smear mcrscp w/mnl difrntl wbc count Miryam Kimballhof [facility] Work Phone: Start: 07-18-2024 Mean corpuscular hemoglobin concentration determination Miryam Kimballhof [facility] Work Phone: Start: 07-18-2024 Nucleated red blood cell count procedure Miryam Kimballhof [facility] Work Phone: Start: 07-18-2024 Platelet mean volume determination Parminder Kimballhof [facility] Work Phone: Start: 07-11-2024 Blood count smear mcrscp w/mnl difrntl wbc count Miryam Kimballhof [facility] Work Phone: Start: 07-11-2024 Mean corpuscular hemoglobin concentration determination Miryam Kimballhof [facility] Work Phone: Start: 07-11-2024 Nucleated red blood cell count procedure Miryam Kimballhof [facility] Work Phone: Start: 07-11-2024 Platelet mean volume determination Tatele sosa Kimballhof [facility] Work Phone: Start: 07-04-2024 Blood count smear mcrscp w/mnl difrntl wbc count Miryampoonam Kimballhof [facility] Work Phone: Start: 07-04-2024 Mean corpuscular hemoglobin concentration determination Miryam Kimballhof [facility] Work Phone: Start: 07-04-2024 Nucleated red blood cell count procedure Miryam Kimballhof [facility] Work Phone: Start: 07-04-2024 Platelet mean volume determination Ashle y Tannhof [facility] Work Phone: Start: 06-27-2024 Blood count smear mcrscp w/mnl difrntl wbc count Miryampoonam Kimballhof [facility] Work Phone: Start: 06-27-2024 Mean corpuscular hemoglobin concentration determination Miryam Kimballhof [facility] Work Phone: Start: 06-27-2024 Nucleated red blood cell count procedure Miryam Kimballhof [facility] Work Phone: Start: 06-27-2024 Platelet mean volume determination Tatele y Tannhof [facility] Work Phone: Start: 06-20-2024 Blood count smear mcrscp w/mnl difrntl wbc count Miryam Kimballhof [facility] Work Phone: Start: 06-20-2024 Mean corpuscular hemoglobin concentration determination Miryam Kimballhof [facility] Work Phone: Start: 06-20-2024 Nucleated red blood cell count procedure Miryam Kimballhof [facility] Work Phone: Start: 06-20-2024 Platelet mean volume determination Ashle y Tannhof [facility] Work Phone: Start: 06-13-2024 Blood count smear mcrscp w/mnl difrntl wbc count Miryam Tannhof [facility] Work Phone: Start: 06-13-2024 Mean corpuscular hemoglobin concentration determination Miryam Kimballhof [facility] Work Phone: Start: 06-13-2024 Nucleated red blood cell count procedure Miryam Serraf [facility] Work Phone: Start: 06-13-2024 Platelet mean volume determination Parminder Kimballhof [facility] Work Phone: Start: 06-13-2024 Serum inorganic phosphate measurement Miryam Serraf [facility] Work Phone: Start: 06-13-2024 Total cholesterol:HDL ratio measurement Miryam Serraf [facility] Work Phone: Start: 06-13-2024 Vitamin D, 25-hydroxy measurement Miryam Serraf [facility] Work Phone: Start: 06-10-2024 Estimated creatinine clearance Miryam guerrerof [facility] Work Phone: Start: 06-10-2024 Serum inorganic phosphate measurement Miryam Serraf [facility] Work Phone: Start: 06-07-2024 Mean corpuscular hemoglobin concentration determination Miryam Serraf [facility] Work Phone: Start: 06-07-2024 Platelet mean volume determination Parminder Serraf [facility] Work Phone: Start: 06-06-2024 Plain x-ray of wrist Miryam Serraf [facility] Work Phone: Start: 05-30-2024 Measurement of renal function Miryam castellonof [facility] Work Phone: Start: 05-27-2024 Blood count smear mcrscp w/mnl difrntl wbc count Miryam Serraf [facility] Work Phone: Start: 05-27-2024 Nucleated red blood cell count procedure Miryam Serraf [facility] Work Phone: Start: 05-23-2024 Videoswallow Miryam Serraf [facility] Work Phone: Start: 05-20-2024 Measurement of occult blood in stool specimen using immunoassay Miryam Orozco [facility] Work Phone: Start: 05-19-2024 Human leukocyte antigen B27 antigen phenotyping Miryam Serraf [facility] Work Phone: Start: 05-19-2024 Total iron binding capacity measurement Miryam Orozco [facility] Work Phone: Start: 05-19-2024 X-ray of thoracic spine, three views Miryam Orozco [facility] Work Phone: Start: 05-18-2024 Glucose measurement, blood Nicol Judge MD Work Phone: Start: 05-18-2024 Glucose measurement, blood Nicol Judge MD Work Phone: Start: 05-18-2024 Glucose measurement, blood Nicol Judge MD Work Phone: Start: 05-18-2024 Assay of magnesium Jono Garrett Benton BUSINESS OFFICE TECHNOLOGY INSTRUCTOR-MRI MANAGER Work Phone: Start: 05-17-2024 Glucose measurement, blood Nicol Judge MD Work Phone: Start: 05-17-2024 Glucose measurement, blood Nicol Judge MD Work Phone: Start: 05-17-2024 SPEECH MODIFIED BARIUM SWALLOW Heladio dunaway MD Work Phone: Start: 05-17-2024 Radiologic exam swallow function contrast study Heladio Prather MD Work Phone: Start: 05-17-2024 Glucose measurement, blood Nicol Judge MD Work Phone: Start: 05-17-2024 Assay of magnesium Jono Garrett Angelaino BUSINESS OFFICE TECHNOLOGY INSTRUCTOR-MRI MANAGER Work Phone: Start: 05-17-2024 Glucose measurement, blood Nicol Judge MD Work Phone: Start: 05-16-2024 Glucose measurement, blood Nicol Judge MD Work Phone: Start: 05-16-2024 Glucose measurement, blood Nicol Judge MD Work Phone: Start: 05-16-2024 Glucose measurement, blood Nicol Judge MD Work Phone: Start: 05-16-2024 Assay of magnesium Jono L Infantino BUSINESS OFFICE TECHNOLOGY INSTRUCTOR-MRI MANAGER Work Phone: Start: 05-15-2024 Glucose measurement, blood Nicol Judge MD Work Phone: Start: 05-15-2024 Glucose measurement, blood Kevon Lolly crawford MD Work Phone: Start: 05-15-2024 Infectious agent dna/rna influenza 1st 2 types Heladio Prather MD Work Phone: Start: 05-15-2024 Sars-cov-2 detection by dna/rna Heladio dick MD Work Phone: Start: 05-15-2024 Glucose measurement, blood Kevon Lolly crawford MD Work Phone: Start: 05-15-2024 Assay of magnesium Jono L Infantino BUSINESS OFFICE TECHNOLOGY INSTRUCTOR-MRI MANAGER Work Phone: Start: 05-15-2024 Glucose measurement, blood Kevon Lolly crawford MD Work Phone: Start: 05-14-2024 Glucose measurement, blood Kevon Lolly crawford MD Work Phone: Start: 05-14-2024 Glucose measurement, blood Kevon crawford MD Work Phone: Start: 05-14-2024 Assay of magnesium Jono L Infantino BUSINESS OFFICE TECHNOLOGY INSTRUCTOR-MRI MANAGER Work Phone: Start: 05-13-2024 Glucose measurement, blood [...] Phone: Start: 05-13-2024 Assay of magnesium Jono Gerry Benton BUSINESS OFFICE TECHNOLOGY INSTRUCTOR-MRI MANAGER Work Phone: Start: 05-13-2024 Glucose measurement, blood Kevon crawford MD Work Phone: Start: 05-12-2024 Glucose measurement, blood Kevon crawford MD Work Phone: Start: 05-12-2024 Glucose measurement, blood Kevon crawford MD Work Phone: Start: 05-12-2024 CARDIAC RHYTHM (SCANNED) Other Other OT Start: 05-12-2024 CONTINUOUS CARDIAC MONITORING STRIP Other Other Start: 05-12-2024 Glucose measurement, blood Kevon crawford MD Work Phone: Start: 05-12-2024 Assay of magnesium Vy Curry MD Work Phone: Start: 05-12-2024 Lipid panel Heladio Prather MD Work Phone: Start: 05-11-2024 Glucose measurement, blood Kevon crawford MD Work Phone: Start: 05-11-2024 Echo tthrc r-t 2d w/wom-mode compl spec&colr d Jamaal Khalil MD Work Phone: Start: 05-11-2024 Glucose measurement, blood Kevon crawford MD Work Phone: Start: 05-11-2024 Glucose measurement, blood Kevon crawford MD Work Phone: Start: 05-11-2024 Assay of folic acid serum Vy arrieta MD Work Phone: Start: 05-10-2024 CONTINUOUS CARDIAC MONITORING STRIP Other Other Start: 05-10-2024 Blood count complete automated Pratik Ennis BUSINESS OFFICE TECHNOLOGY INSTRUCTOR-MRI MANAGER Work Phone: Start: 05-10-2024 Glucose measurement, blood Ronn lane MD Work Phone: Start: 05-09-2024 Assay of ferritin Vy Curry MD Work Phone: Start: 05-09-2024 Glucose measurement, blood Ronn lane MD Work Phone: Start: 05-09-2024 Dup-scan xtr veins unilateral/limited study Oralia Mary BUSINESS OFFICE TECHNOLOGY INSTRUCTOR-MRI MANAGER Work Phone: Start: 05-09-2024 GENERAL PROCEDURE Clare Adhikari MD Work Phone: Start: 05-09-2024 Culture bacterial blood aerobic w/id isolates Qijaswant iSms BUSINESS OFFICE TECHNOLOGY INSTRUCTOR-MRI MANAGER Work Phone: Start: 05-09-2024 Glucose measurement, blood Ronn lane MD Work Phone: Start: 05-09-2024 Blood gases any combination ph pco2 po2 co2 hco3 Qisajanhi Sims BUSINESS OFFICE TECHNOLOGY INSTRUCTOR-MRI MANAGER Work Phone: Start: 05-09-2024 End: 05-09-2024 Assay of magnesium Jono Bhardwaj BUSINESS OFFICE TECHNOLOGY INSTRUCTOR-MRI MANAGER Work Phone: Start: 05-09-2024 Mri spinal canal cervical w/o & w/contr matrl Nelida Brock MD Work Phone: Start: 05-08-2024 Glucose measurement, blood Pratik barron MD Work Phone: Start: 05-08-2024 Glucose measurement, blood Pratik barron MD Work Phone: Start: 05-08-2024 Inf agent det nucleic acid clostridium amp probe Qijaswant Sims BUSINESS OFFICE TECHNOLOGY INSTRUCTOR-MRI MANAGER Work Phone: Start: 05-08-2024 EXTRA MICRO Brettcary Sims BUSINESS OFFICE TECHNOLOGY INSTRUCTOR-MRI MANAGER Work Phone: Start: 05-08-2024 URINALYSIS REFLEX TO CULTURE Karrie Paez PRN-MRI MANAGER Work Phone: Start: 05-08-2024 Urnls dip stick/tablet reagent auto microscopy Karrie Sims APRN-[facility] Work Phone: Start: 05-08-2024 Retired procedure Pratik Young MD Work Phone: Start: 05-08-2024 Blood gases any combination ph pco2 po2 co2 hco3 Karrie Sims APRN-[facility] Work Phone: Start: 05-08-2024 Potassium serum plasma/whole blood Milton Ennis BUSINESS OFFICE TECHNOLOGY INSTRUCTOR-[facility] Work Phone: Start: 05-08-2024 Glucose measurement, blood Pratik barron MD Work Phone: Start: 05-08-2024 Radiologic exam chest single view Karrie Sims APRN-[facility] Work Phone: Start: 05-08-2024 Smr prim src gram/giemsa stain bct fungi/cell Karrie Sims [facility] Work Phone: Start: 05-08-2024 Glucose measurement, blood Pratik barron MD Work Phone: Start: 05-08-2024 Assay of phosphorus inorganic Pratik Ennis APRN-[facility] Work Phone: Start: 05-08-2024 Ecg routine ecg w/least 12 lds trcg only w/o i&r Pratik Ennis BUSINESS OFFICE TECHNOLOGY INSTRUCTOR-[facility] Work Phone: Start: 05-08-2024 Assay of magnesium Jono Bhardwaj [facility] Work Phone: Start: 05-08-2024 Glucose measurement, blood Pratik barron MD Work Phone: Start: 05-07-2024 Assay of phosphorus inorganic Jono Bhardwaj BUSINESS OFFICE TECHNOLOGY INSTRUCTOR-[facility] Work Phone: Start: 05-07-2024 Glucose measurement, blood Pratik barron MD Work Phone: Start: 05-07-2024 Assay of magnesium Karrie Sims BUSINESS OFFICE TECHNOLOGY INSTRUCTOR-MRI MANAGER Work Phone: Start: 05-07-2024 Glucose measurement, blood Pratik barron MD Work Phone: Start: 05-07-2024 Blood count hematocrit Karrie Sims BUSINESS OFFICE TECHNOLOGY INSTRUCTOR-[facility] P Work Phone: Start: 05-07-2024 CONTINUOUS CARDIAC MONITORING STRIP Other Other Start: 05-07-2024 Radiologic exam chest single view Karrie Sims BUSINESS OFFICE TECHNOLOGY INSTRUCTOR-MRI MANAGER Work Phone: Start: 05-07-2024 End: 05-07-2024 Transfusion of packed red blood cells Karrie Sims BUSINESS OFFICE TECHNOLOGY INSTRUCTOR-MRI MANAGER Work Phone: Start: 05-07-2024 Blood count complete automated Karrie Sims BUSINESS OFFICE TECHNOLOGY INSTRUCTOR-MRI MANAGER Work Phone: Start: 05-07-2024 Glucose measurement, blood [...] lds trcg only w/o i&r Pratik Ennis BUSINESS OFFICE TECHNOLOGY INSTRUCTOR-MRI MANAGER Work Phone: Start: 05-07-2024 End: 05-07-2024 Transfusion of packed red blood cells Harish Parry MD Work Phone: Start: 05-07-2024 Blood count complete automated Jono Bhardwaj BUSINESS OFFICE TECHNOLOGY INSTRUCTOR-MRI MANAGER Work Phone: Start: 05-07-2024 Glucose measurement, blood Pratik barron MD Work Phone: Start: 05-06-2024 Mri brain brain stem w/o w/contrast material Danielle OCHOA Work Phone: Start: 05-06-2024 Ecg routine ecg w/least 12 lds trcg only w/o i&r Pratik Ortiz Ennis BUSINESS OFFICE TECHNOLOGY INSTRUCTOR-MRI MANAGER Work Phone: Start: 05-06-2024 Heparin assay Karrie Sims APRN-MRI MANAGER Work Phone: Start: 05-06-2024 Glucose measurement, blood Pratik barron MD Work Phone: Start: 05-06-2024 Radiologic examination pelvis 1/2 views Danielle OCHOA Work Phone: Start: 05-06-2024 Creatinine blood Karrie Sims BUSINESS OFFICE TECHNOLOGY INSTRUCTOR-MRI MANAGER Work Phone: Start: 05-06-2024 Glucose measurement, blood Pratik barron MD Work Phone: Start: 05-06-2024 Eeg extended monitoring 61-119 minutes Paulino Whitehead MD Work Phone: Start: 05-06-2024 Fibrinogen activity Karrie Sims APRN-MRI MANAGER Work Phone: Start: 05-06-2024 Glucose measurement, blood Pratik barron MD Work Phone: Start: 05-06-2024 EXTRA LAVENDER TOP Pratik Young MD Work Phone: Start: 05-06-2024 EXTRA TUBES Pratik Young MD Work Phone: Start: 05-06-2024 End: 05-06-2024 Assay of magnesium Pratik Ortiz Raymon BUSINESS OFFICE TECHNOLOGY INSTRUCTOR-MRI MANAGER Work Phone: Start: 05-05-2024 Glucose measurement, blood Pratik barron MD Work Phone: Start: 05-05-2024 Hemodialysis Josefina Cary MD Work Phone: Start: 05-05-2024 PROCEDURE - LUMBAR PUNCTURE Oralia boss BUSINESS OFFICE TECHNOLOGY INSTRUCTOR-MRI MANAGER Work Phone: Start: 05-05-2024 Glucose measurement, blood Pratik barron MD Work Phone: Start: 05-05-2024 Radiologic exam chest single view Ping Mary BUSINESS OFFICE TECHNOLOGY INSTRUCTOR-MRI MANAGER Work Phone: Start: 05-05-2024 End: 05-05-2024 Cell count misc body fluids w/differential count Oralia Mary BUSINESS OFFICE TECHNOLOGY INSTRUCTOR-MRI MANAGER Work Phone: Start: 05-05-2024 Cytp concentration smears & interpretation Oralia Mary BUSINESS OFFICE TECHNOLOGY INSTRUCTOR-MRI MANAGER Work Phone: Start: 05-05-2024 Concentration infectious agents Oralia Mary BUSINESS OFFICE TECHNOLOGY INSTRUCTOR-MRI MANAGER Work Phone: Start: 05-05-2024 Glucose body fluid other than blood Oralia Mary BUSINESS OFFICE TECHNOLOGY INSTRUCTOR-MRI MANAGER Work Phone: Start: 05-05-2024 Calcium ionized Oralia Mary BUSINESS OFFICE TECHNOLOGY INSTRUCTOR-MRI MANAGER Work Phone: Start: 05-05-2024 CHRONIC HEPATITIS PANEL(DIALYSIS, ESRD, JOSE) Josefina Cary MD Work Phone: Start: 05-05-2024 Hepatitis b surf antibody hbsab Josefina Cary MD Work Phone: Start: 05-05-2024 End: 05-05-2024 Iaad ia hepatitis b surface antigen Josefina Cary MD Work Phone: Start: 05-05-2024 Glucose measurement, blood Pratik barron MD Work Phone: Start: 05-05-2024 RT COMMUNICATION ORDER Oralia Dougherty t BUSINESS OFFICE TECHNOLOGY INSTRUCTOR-MRI MANAGER Work Phone: Start: 05-05-2024 End: 05-05-2024 Smr prim src gram/giemsa stain bct fungi/cell Oralia M Ichrist BUSINESS OFFICE TECHNOLOGY INSTRUCTOR-MRI MANAGER Work Phone: Start: 05-05-2024 Calcium ionized Oralia Mary BUSINESS OFFICE TECHNOLOGY INSTRUCTOR-MRI MANAGER Work Phone: Start: 05-05-2024 Blood gases any combination ph pco2 po2 co2 hco3 Kindra Gannon MD Work Phone: Start: 05-05-2024 Ecg routine ecg w/least 12 lds trcg only w/o i&r Pratik Ennis BUSINESS OFFICE TECHNOLOGY INSTRUCTOR-MRI MANAGER Work Phone: Start: 05-05-2024 Ct head/brain w/o contrast material Paulino Whitehead MD Work Phone: Start: 05-05-2024 Creatine kinase total Paulino Whitehead MD Work Phone: Start: 05-05-2024 Drug screen quantitative vancomycin Jennifer Cloud [facility] Start: 05-05-2024 Radiologic exam abdomen 1 view Paulino palacios MD Work Phone: Start: 05-04-2024 ABORH TYPE RECONFIRMATION Shereen Nails DO Work Phone: Start: 05-04-2024 Culture bct isol&prsmptv id isolate ea urine Paulino Whitehead MD Work Phone: Start: 05-04-2024 EXTRA MICRO Paulino Whitehead MD Work Phone: Start: 05-04-2024 URINALYSIS REFLEX TO CULTURE Paulino barbosa MD Work Phone: Start: 05-04-2024 Radiologic exam chest single view Arik Ennis BUSINESS OFFICE TECHNOLOGY INSTRUCTOR-MRI MANAGER Work Phone: Start: 05-04-2024 Radiologic exam abdomen 1 view Pratik Ennis BUSINESS OFFICE TECHNOLOGY INSTRUCTOR-MRI MANAGER Work Phone: Start: 05-04-2024 Antibody screen NICOL JUDGE Comment on above: Performed By: #### MGO, CHM7, IPB, CKB, TRIG, LDO #### [facility] ([facility]) [address] [place] [address] Start: 05-04-2024 Assay of ammonia Pratik Ennis BUSINESS OFFICE TECHNOLOGY INSTRUCTOR-MRI MANAGER Work Phone: Start: 05-04-2024 Blood gases any combination ph pco2 po2 co2 hco3 Pratik Ennis BUSINESS OFFICE TECHNOLOGY INSTRUCTOR-MRI MANAGER Work Phone: Start: 05-04-2024 RAPHAEL AURIS SCREEN BY PCR Pratik chan BUSINESS OFFICE TECHNOLOGY INSTRUCTOR-MRI MANAGER Work Phone: Start: 05-04-2024 CBC AND ELECTRONIC DIFF Pratik Ennis BUSINESS OFFICE TECHNOLOGY INSTRUCTOR-MRI MANAGER Work Phone: Start: 05-04-2024 Complete blood count with white cell differential, automated Pratik Ennis BUSINESS OFFICE TECHNOLOGY INSTRUCTOR-MRI MANAGER Work Phone: Start: 05-04-2024 Hepatic function panel Pratik Ennis BUSINESS OFFICE TECHNOLOGY INSTRUCTOR-MRI MANAGER Work Phone: Start: 05-04-2024 Iadna respiratry probe & rev trnscr 3-5 targets Pratik Ennis BUSINESS OFFICE TECHNOLOGY INSTRUCTOR-MRI MANAGER Work Phone: Start: 05-04-2024 MANUAL DIFF Pratik Ennis BUSINESS OFFICE TECHNOLOGY INSTRUCTOR-MRI MANAGER Work Phone: Start: 05-04-2024 PREPARE TO TRANSFUSE RED BLOOD CELLS Harish Parry MD Work Phone: Start: 05-04-2024 Glucose measurement, blood Pratik Angel barron MD Work Phone: Start: 05-03-2024 Complete ultrasound of kidneys and bladder Miryam Orozco STOPER-C Work Phone: Start: 05-02-2024 CT of head without contrast Miryam Tai STOPER-C Work Phone: Start: 05-02-2024 Plain chest X-ray Miryam Orozco STOPER-C Work Phone: Start: 05-01-2024 Blood culture Miryam Tannhof STOPER-C Work Phone: Start: 05-01-2024 Clostridium difficile detection Miryam brantley STOPER-C Work Phone: Start: 05-01-2024 Gram stain microscopy Miryam Orozco STOPER- C Work Phone: Start: 05-01-2024 Legionella pneumophila antigen assay Miryam Orozco STOPER-C Work Phone: Start: 05-01-2024 Nucleic acid assay Miryam Orozco STOPER-C Work Phone: Start: 05-01-2024 Respiratory microbial culture Miryam castellonof STOPER-C Work Phone: Start: 05-01-2024 Streptococcus pneumoniae antigen assay Miryam Orozco STOPER-C Work Phone: Start: 05-01-2024 Urine culture Miryam Orozco STOPER-C Work Phone: Start: 05-01-2024 Miryam Orozco STOPER-C Work Phone: Start: 05-01-2024 End: 05-01-2024 Plain chest X-ray Miryam Orozco STOPER-C Work Phone: Start: 01-28-2024 PFIZER-BIONTHallspot COVID-19 VACCINE AGE 12+ YR (COMIRNATY) Miryam Orozco BUSINESS OFFICE TECHNOLOGY INSTRUCTOR.MRI MANAGER Work Phone: Start: 07-22-2023 Adult depression screening [...] canal thoracic w/o contrast matrl Avis Marrufo BUSINESS OFFICE TECHNOLOGY INSTRUCTOR.MRI MANAGER Work Phone: Start: 01-08-2022 End: 01-08-2022 Njx dx/ther agt pvrt facet jt lmbr/sac 1 level Roque Delgado MD Work Phone: Start: 01-03-2022 Us abdominal real time w/image documentation Miryam Orozco APRN.MRI MANAGER Work Phone: Start: 12-25-2021 End: 12-25-2021 Njx dx/ther agt pvrt facet jt lmbr/sac 1 level Roque Delgado MD Work Phone: Start: 09-20-2021 Radex spine lumbosacral minimum 4 views Avis Marrufo BUSINESS OFFICE TECHNOLOGY INSTRUCTOR.MRI MANAGER Work Phone: Start: 09-19-2021 Adult depression screening assessment Avis Marrufo APRN.MRI MANAGER Work Phone: Start: 07-25-2021 Ct abdomen & pelvis w/o contrast material Lizy Capone MD Work Phone: Start: 07-16-2021 Radex ribs uni w/posteroant ch minimum 3 views Lizy Capone MD Work Phone: Start: 11-25-2018 Adult depression screening assessment Lizy Capone MD Work Phone: Bacteria identified in Urine by Culture Dr. Lizy Capone Work Phone: H/O: surgery Miryam Orozco STOPER-C Work Phone: H/O: surgery Dr. Gonzalo paez MD H/O: surgery Dr. Gonzalo paez MD H/O: surgery Dr. Gonzalo paez MD Urine culture Dr. Lizy white Work Phone: Urine culture Dr. Lizy white Work Phone: Urine culture Dr. Lizy white Work Phone: Plan of Treatment Date Care Activity Detail Author Start: 10-26-2034 Urine microalbumin profile DTaP,Tdap,Td Vaccine (3 - Td or Tdap) [facility] Start: 09-16-2027 Diabetes Screening Diabetes Screening [facility] Start: 09-01-2027 Tetanus vaccination [facility] Start: 09-01-2027 Urine microalbumin profile [facility] Start: 08-23-2027 Diabetes Screening Diabetes Screening [facility] Start: 05-17-2027 Diabetes Screening Diabetes Screening [facility] Start: 12-13-2026 Diabetes Screening Diabetes Screening [facility] Start: 07-15-2026 Diabetes Screening Diabetes Screening [facility] Start: 01-15-2026 Diabetes Screening Diabetes Screening [facility] Start: 12-22-2025 Diabetes Screening Diabetes Screening [facility] Start: 09-26-2025 DIABETES SCREEN DIABETES SCREEN [facility] Start: 09-26-2025 Diabetes Screening Diabetes Screening [facility] Start: 05-17-2025 Finding of potassium level (finding) [facility] Start: 05-05-2025 Thyroid stimulating hormone measurement [facility] Start: 01-06-2025 DIABETES SCREEN DIABETES SCREEN [facility] Start: 12-05-2024 Influenza vaccination Influenza Vaccine (#1) [facility] Start: 11-25-2024 End: 11-25-2024 Patient encounter procedure 11/25/2024 2:20 PM EDT Office Visit Family Nydia [facility]iz [address] [place] [address] [place] [id number] Lizy Capone MD [address] [facility] [place] [id number] 1 month follow up Family Nydia Ruiz Comment on above: 1 month follow up Start: 11-01-2024 Patient discharge [facility] Start: 10-31-2024 Wound care [facility] Start: 10-30-2024 Following clinical pathway protocol [facility] Start: 10-29-2024 Following clinical pathway protocol [facility] Start: 10-29-2024 Assessment of risk of venous thromboembolism [facility] Start: 10-29-2024 Consultation for treatment [facility] Start: 10-29-2024 Elevation of affected extremity [facility] Start: 10-29-2024 Insertion of catheter into peripheral vein [facility] Start: 10-29-2024 Measuring intake and output [facility] Start: 10-29-2024 Notification of physician [facility] Start: 10-29-2024 Patient education [facility] Start: 10-29-2024 Providing care according to standard [facility] Start: 10-29-2024 Provision of activity privileges [facility] Start: 10-29-2024 Referral to occupational therapist [facility] Start: 10-29-2024 Referral to service [facility] Start: 10-29-2024 [facility] Start: 10-29-2024 Hospital admission, emergency, from emergency room, medical nature [facility] Start: 10-29-2024 Verification routine [facility] Start: 10-29-2024 Admission procedure [facility] Start: 10-29-2024 T4 free measurement [facility] Start: 10-26-2024 Emergency department visit moderate severity [facility] Start: 10-26-2024 Smpl repair scalp/neck/ax/genit/trunk 2.6-7.5cm [facility] Start: 10-26-2024 End: 10-26-2024 [facility] Start: 10-24-2024 End: 10-24-2024 Patient encounter procedure [facility] [place] Comment on above: 1 month follow up [facility] F/U Start: 10-22-2024 End: 01-21-2025 CBC panel - Blood by Automated count COMPLETE BLOOD COUNT Lab Routine BENIGN HYPERTENSION(aka HTN) Anemia in chronic kidney disease, unspecified CKD stage CKD (chronic kidney disease) stage 4, GFR 15-29 ml/min (HCC) Expected: 10/22/2024 (Approximate), Expires: 01/21/2025 [facility] Comment on above: Expected: 10/22/2024 (Approximate), Expi res: 01/21/2025 Start: 10-22-2024 End: 01-21-2025 Comprehensive metabolic 2000 panel - Serum or Plasma COMPREHENSIVE METABOLIC PANEL Lab Routine BENIGN HYPERTENSION(aka HTN) CKD (chronic kidney disease) stage 4, GFR 15-29 ml/min (HCC) Expected: 10/22/2024 (Approximate), Expires: 01/21/2025 [facility] Work Phone: Comment on above: Expected: 10/22/2024 (Approximate), Expi res: 01/21/2025 Start: 10-20-2024 Patient discharge [facility] Start: 10-19-2024 Development of care plan [facility] Start: 10-19-2024 Developing a treatment plan [facility] Start: 10-17-2024 Referral to service [facility] Start: 10-17-2024 Patient discharge [facility] Start: 10-17-2024 [facility] Start: 10-14-2024 Enteroscopy > 2nd prtn abltj lesion [facility] Start: 10-14-2024 Unlisted procedure small intestine [facility] Start: 10-13-2024 [facility] Start: 10-12-2024 Measurement of occult blood in stool specimen using immunoassay [facility] Start: 10-11-2024 Referral to environmental project manager [facility] Start: 10-11-2024 Application of elastic bandage [facility] Start: 10-11-2024 Consultation for treatment [facility] Start: 10-11-2024 [facility] Start: 10-10-2024 [facility] Start: 10-10-2024 Elevation of affected extremity [facility] Start: 10-08-2024 Seizure precautions [facility] Start: 10-06-2024 Speech therapy management [facility] Start: 10-06-2024 Verification routine [facility] Start: 10-05-2024 [facility] Start: 10-05-2024 Development of care plan [facility] Start: 10-05-2024 Speech therapy assessment [facility] Start: 10-05-2024 Developing a treatment plan [facility] Start: 10-04-2024 End: 10-05-2024 Patient referral to dietitian [facility] Start: 10-04-2024 Following clinical pathway protocol [facility] Start: 10-04-2024 Wound care [facility] Start: 10-04-2024 Admission procedure [facility] Start: 10-04-2024 Introduction of urinary catheter [facility] Start: 10-04-2024 Measuring intake and output [facility] Start: 10-04-2024 Referral to occupational therapist [facility] Start: 10-04-2024 Referral to service [facility] Start: 10-04-2024 Vital signs measurements [facility] Start: 10-04-2024 [facility] Start: 10-04-2024 Patient discharge [facility] Start: 10-03-2024 Consultation for treatment [facility] Start: 10-03-2024 [facility] Start: 10-02-2024 [facility] Start: 10-01-2024 [facility] Start: 09-29-2024 Application of intermittent pneumatic compression device [facility] Start: 09-29-2024 [facility] Start: 09-28-2024 Following clinical pathway protocol [facility] Start: 09-28-2024 Assessment of risk of venous thromboembolism [facility] Start: 09-28-2024 Fall prevention [facility] Start: 09-28-2024 Inhalation therapy procedure [facility] Start: 09-28-2024 Insertion of catheter into peripheral vein [facility] Start: 09-28-2024 Introduction of urinary catheter [facility] Start: 09-28-2024 Measuring intake and output [facility] Start: 09-28-2024 Providing care according to standard [facility] Start: 09-28-2024 Provision of activity privileges [facility] Start: 09-28-2024 Referral to environmental project manager [facility] Start: 09-28-2024 Referral to occupational therapist [facility] Start: 09-28-2024 Referral to service [facility] Start: 09-28-2024 Wound care [facility] Start: 09-28-2024 [facility] Start: 09-28-2024 Verification routine [facility] Start: 09-28-2024 Admission procedure [facility] Start: 09-28-2024 Hospital admission, emergency, from emergency room, medical nature [facility] Start: 09-28-2024 [facility] Start: 09-28-2024 [facility] Start: 09-28-2024 End: 09-28-2024 [facility] Start: 09-28-2024 Patient referral to dietitian [facility] Start: 09-28-2024 [facility] Start: 09-22-2024 End: 09-22-2024 Patient encounter procedure 09/22/2024 2:20 PM EDT Office Visit [facility] [place] [address] [place] [address] Lizy Capone MD [address] [place] [address] 1 mo f/u [facility] Nydia Ruiz Comment on above: 1 mo f/u Start: 09-15-2024 End: 12-15-2024 Natriuretic peptide.B prohormone N-Terminal [Mass/volume] in Serum or Plasma [facility] Work Phone: Comment on above: Expected: 09/15/2024, Expires: Start: 09-06-2024 Anes integ extremities ant trunk & perineum nos [facility] Start: 09-06-2024 Prep site trunk/arm/leg 1st 100 sq cm/1pct [facility] Start: 09-06-2024 Split agrft t/a/l 1st 100 cm/&/1% bdy inft/chld [facility] Start: 09-06-2024 Patient discharge [facility] Start: 08-22-2024 End: 08-22-2024 Patient encounter procedure 08/22/2024 1:20 PM EDT Office Visit [facility] Nydia [facility]iz [address] [place] [address] Lizy Capone MD [address] [place], [place] [id number] 6 month follow up Family Nydia Ruiz Comment on above: 6 month follow up Start: 08-05-2024 End: 08-05-2024 Patient encounter procedure 08/05/2024 10:00 AM EDT Office Visit [facility] Medicine [place] [address] [place] [address] Miryam Orozco APRN.MRI MANAGER [address] [place] [address] 6 month follow up [facility] [place] [place] Comment on above: 6 month follow up Start: 07-29-2024 [facility] Start: 07-28-2024 End: 10-27-2024 Comprehensive metabolic 2000 panel - Serum or Plasma COMPREHENSIVE METABOLIC PANEL Lab Routine BENIGN HYPERTENSION(aka HTN) Expected: 07/28/2024, Expires: 10/27/2024 [facility] Work Phone: Comment on above: Expected: 07/28/2024, Expires: Start: 07-28-2024 Covid-19 Vaccine () Covid-19 Vaccine () [facility] Start: 07-28-2024 End: 10-27-2024 Lipid 1996 panel - Serum or Plasma LIPID PANEL BASIC Lab Routine Hyperlipidemia LDL goal <100 Expected: 07/28/2024, Expires: 10/27/2024 [facility] Comment on above: Expected: 07/28/2024, Expires: Start: 07-28-2024 End: 10-27-2024 Thyrotropin [Units/volume] in Serum or Plasma THYROID STIMULATING HORMONE Lab Routine Hypothyroidism, acquired Expected: 07/28/2024, Expires: 10/27/2024 [facility] Comment on above: Expected: 07/28/2024, Expires: Start: 07-28-2024 End: 10-27-2024 Thyroxine (T4) free [Mass/volume] in Serum or Plasma T4 FREE/FREE THYROXINE Lab Routine Hypothyroidism, acquired Expected: 07/28/2024, Expires: 10/27/2024 [facility] Comment on above: Expected: 07/28/2024, Expires: Start: 07-21-2024 Anxiety Screening Anxiety Screening [facility] Start: 07-21-2024 Covid-19 Vaccine () Covid-19 Vaccine () [facility] Comment on above: Postponed from 12/05/2022 (Declined at t his time) Start: 07-21-2024 Depression Screening Depression Screening [facility] Start: 07-21-2024 Shingrix Vaccine (2 of 3) Shingrix Vaccine (2 of 3) [facility] Comment on above: Postponed from 07/12/2009 (Declined at t his time) Start: 07-16-2024 DIABETES SCREEN DIABETES SCREEN [facility] Start: 06-10-2024 Patient discharge [facility] Start: 06-10-2024 Referral to environmental project manager [facility] Start: 06-09-2024 Catheterization of vein [facility] Start: 06-08-2024 Application of elastic bandage [facility] Start: 06-08-2024 [facility] Start: 06-06-2024 Application of ice collar, cap or bag [facility] Start: 05-27-2024 [facility] Start: 05-20-2024 Following clinical pathway protocol [facility] Start: 05-20-2024 Administration of blood product [facility] Start: 05-20-2024 Administration of blood product [facility] Start: 05-18-2024 Seizure precautions [facility] Start: 05-18-2024 Admission procedure [facility] Start: 05-18-2024 Measuring intake and output [facility] Start: 05-18-2024 Patient referral to dietitian [facility] Start: 05-18-2024 Referral to service [facility] Start: 05-18-2024 Vital signs measurements [facility] Start: 05-18-2024 [facility] Start: 05-18-2024 Referral to occupational therapist [facility] Start: 05-18-2024 Speech therapy assessment [facility] Start: 05-08-2024 Complete blood count Hemoglobin/Hematocrit [facility] Start: 05-08-2024 Creatinine measurement Serum Creatinine [facility] Start: 05-04-2024 Patient discharge [facility] Start: 05-04-2024 Care of hemodialysis equipment [facility] Start: 05-04-2024 Hemodialysis care [facility] Start: 05-04-2024 [facility] Start: 05-04-2024 [facility] Start: 05-04-2024 Administration of blood product [facility] Start: 05-03-2024 End: 05-04-2024 [facility] Start: 05-02-2024 [facility] Start: 05-01-2024 Following clinical pathway protocol [facility] Start: 05-01-2024 Assessment of risk of venous thromboembolism [facility] Start: 05-01-2024 Catheterization of vein [facility] Start: 05-01-2024 Consultation [facility] Start: 05-01-2024 Continuous pulse oximetry [facility] Start: 05-01-2024 Inhalation therapy procedure [facility] Start: 05-01-2024 Insertion of catheter into peripheral vein [facility] Start: 05-01-2024 Measuring intake and output [facility] Start: 05-01-2024 Notification of physician [facility] Start: 05-01-2024 Providing care according to standard [facility] Start: 05-01-2024 Referral to environmental project manager [facility] Start: 05-01-2024 Referral to occupational therapist [facility] Start: 05-01-2024 Referral to service [facility] Start: 05-01-2024 Vital signs measurements [facility] Start: 05-01-2024 End: 05-01-2024 [facility] Start: 05-01-2024 Airway suction technique [facility] Start: 05-01-2024 Admission procedure [facility] Start: 05-01-2024 Patient referral to dietitian [facility] Start: 05-01-2024 [facility] Start: 04-15-2024 Annual PCP Team Chronic Disease Visit Annual PCP Team Chronic Disease Visit [facility] Start: 04-06-2024 Advance Directive Discussion Advance Directive Discussion [facility] Start: 03-24-2024 End: 03-24-2024 Patient encounter procedure 03/24/2024 8:45 AM EST Office Visit [facility] [address] [place] [address] Weston Lowe APRN.MRI MANAGER [address] [place] [address] 3 month refill [facility] Comment on above: 3 month refill Start: 03-16-2024 End: 03-16-2024 Patient encounter procedure 03/16/2024 11:20 AM EST Office Visit Family [facility] [place] [address] [place] [address] Miryam Orozco APRN.MRI MANAGER [address] [facility] [place] [address] Hosp Follow up/ discharge 03/02/24 [facility] Comment on above: Hosp Follow up/ discharge 03/02/24 Start: 02-11-2024 End: 02-11-2024 Patient encounter procedure 02/11/2024 9:20 AM EST Office Visit [facility] [place] [address] [place] [address] Miryam Orozco APRN.MRI MANAGER [address] [facility] [address] 3 month follow up [facility] Comment on above: 3 month follow up Start: 02-01-2024 End: 02-01-2024 Patient encounter procedure 02/01/2024 8:45 AM EDT Office Visit Orthopaedics [address] [place] [address] Grzegorz Becerril MD [address] [place] [address] 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, M19.012] Orthopaedics Comment on above: 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, M19.012] Start: 01-30-2024 End: 04-30-2024 Thyrotropin [Units/volume] in Serum or Plasma THYROID STIMULATING HORMONE Lab Routine Hypothyroidism, acquired Expected: 01/30/2024, Expires: 04/30/2024 [facility] Work Phone: Comment on above: Expected: 01/30/2024, Expires: Start: 01-30-2024 End: 04-30-2024 Thyroxine (T4) free [Mass/volume] in Serum or Plasma T4 FREE/FREE THYROXINE Lab Routine Hypothyroidism, acquired Expected: 01/30/2024, Expires: 04/30/2024 [facility] Comment on above: Expected: 01/30/2024, Expires: Start: 01-28-2024 End: 01-28-2024 Patient encounter procedure 01/28/2024 9:00 AM EDT Office Visit Family Nydia Ruiz [address] [place] [address] Miryam Orozco APRN.MRI MANAGER [address] [place] [address] 6 month follow up [facility] Nydia [facility] Comment on above: 6 month follow up Start: 01-21-2024 End: 04-21-2024 Comprehensive metabolic 2000 panel - Serum or Plasma COMPREHENSIVE METABOLIC PANEL Lab Routine CKD (chronic kidney disease) stage 4, GFR 15-29 ml/min ([facility]) Expected: 01/21/2024, Expires: 04/21/2024 [facility] Work Phone: Comment on above: Expected: 01/21/2024, Expires: Start: 01-21-2024 End: 04-21-2024 Lipid 1996 panel - Serum or Plasma LIPID PANEL BASIC Lab Routine Hyperlipidemia LDL goal <100 Expected: 01/21/2024, Expires: 04/21/2024 [facility] Work Phone: Comment on above: Expected: 01/21/2024, Expires: Start: 01-21-2024 End: 04-21-2024 Thyrotropin [Units/volume] in Serum or Plasma THYROID STIMULATING HORMONE Lab Routine Hypothyroidism, acquired Expected: 01/21/2024, Expires: 04/21/2024 [facility] Work Phone: Comment on above: Expected: 01/21/2024, Expires: Start: 01-16-2024 Serum Creatinine Serum Creatinine [facility] Start: 12-23-2023 Annual PCP Team Chronic Disease Visit Annual PCP Team Chronic Disease Visit [facility] Start: 12-23-2023 BP Controlled (<130/80) BP Controlled (<130/80) [facility] Start: 12-23-2023 Serum Creatinine Serum Creatinine [facility] Start: 12-17-2023 End: 12-17-2023 Follow-up encounter 12/17/2023 9:30 AM EDT [facility] [address] [place] [address] Weston Lowe APRN.MRI MANAGER [address] [place] [address] RFA follow up [facility] Comment on above: RFA follow up Start: 12-17-2023 End: 12-17-2023 Patient encounter procedure 12/17/2023 8:45 AM EDT Office Visit [facility] [address] [place] [address] Roque Delgado MD [address] [facility] [address] [place] [address] RFA follow up [facility] Comment on above: RFA follow up Start: 12-06-2023 Covid-19 Vaccine ( season) Covid-19 Vaccine ( season) [facility] Start: 12-06-2023 Covid-19 Vaccine ( season) Covid-19 Vaccine ( season) [facility] Start: 12-06-2023 Influenza vaccination Influenza Vaccine (#1) [facility] Start: 12-04-2023 End: 12-04-2023 Patient encounter procedure 12/04/2023 9:00 AM EDT Office Visit OB/Gynecology [address] [place] [address] Starr Solano MD [address] [place] [address] Consult IUD removal [facility] Comment on above: Consult IUD removal Start: 11-16-2023 End: 11-16-2023 ambulatory [facility] Comment on above: Right RFA - suprascapular nerve w fluoro ; 81mg asp MEDICARE [facility] Right RFA - suprascapular nerve w fluoro; 81mg asp Start: 10-21-2023 End: 01-20-2024 Comprehensive metabolic 2000 panel - Serum or Plasma COMPREHENSIVE METABOLIC PANEL Lab Routine Chronic constipation Leg swelling CKD (chronic kidney disease) stage 4, GFR 15-29 ml/min ([facility]) Expected: 10/21/2023, Expires: 01/20/2024 [facility] Work Phone: Comment on above: Expected: 10/21/2023, Expires: Start: 09-27-2023 ANNUAL PCP TEAM CHRONIC DISEASE VISIT ANNUAL PCP TEAM CHRONIC DISEASE VISIT [facility] Start: 09-27-2023 SERUM CREATININE SERUM CREATININE [facility] Start: 06-27-2023 ANNUAL PCP TEAM CHRONIC DISEASE VISIT ANNUAL PCP TEAM CHRONIC DISEASE VISIT [facility] Start: 06-27-2023 BP CONTROLLED (<130/80) BP CONTROLLED (<130/80) [facility] in Start: 06-11-2023 Blood chemistry [facility] Start: 06-10-2023 Blood chemistry [facility] Start: 06-09-2023 Patient discharge [facility] Start: 06-08-2023 Thyroid stimulating hormone measurement [facility] Start: 06-08-2023 [facility] Start: 06-08-2023 Following clinical pathway protocol [facility] Start: 06-08-2023 Ambulation without limitation [facility] Start: 06-08-2023 Assessment of risk of venous thromboembolism [facility] Start: 06-08-2023 Incentive spirometry [facility] Start: 06-08-2023 Inhalation therapy procedure [facility] Start: 06-08-2023 Insertion of catheter into peripheral vein [facility] Start: 06-08-2023 Measuring intake and output [facility] Start: 06-08-2023 Oxygen therapy [facility] Start: 06-08-2023 Providing care according to standard [facility] Start: 06-08-2023 Referral to service [facility] Start: 06-08-2023 [facility] Start: 06-08-2023 Verification routine [facility] Start: 06-08-2023 Admission procedure [facility] Start: 05-13-2023 BP CONTROLLED (<130/80) BP CONTROLLED (<130/80) [facility] Start: 04-21-2023 ANNUAL PCP TEAM CHRONIC DISEASE VISIT ANNUAL PCP TEAM CHRONIC DISEASE VISIT [facility] Start: 04-21-2023 BP CONTROLLED (<130/80) BP CONTROLLED (<130/80) [facility] Start: 04-06-2023 Behavioral Health Screening Behavioral Health Screening [facility] Start: 04-06-2023 Depression Assessment Depression Assessment [facility] Start: 01-23-2023 End: 03-25-2023 Comprehensive metabolic 2000 panel - Serum or Plasma COMP METABOLIC PANEL Lab Routine Decreased glomerular filtration rate (GFR) Expected: 01/23/2023, Expires: 03/25/2023 [facility] Work Phone: Comment on above: Expected: 01/23/2023, Expires: 3 Start: 01-06-2023 SERUM CREATININE SERUM CREATININE [facility] Start: 01-02-2023 ANNUAL PCP TEAM CHRONIC DISEASE VISIT ANNUAL PCP TEAM CHRONIC DISEASE VISIT [facility] Start: 12-22-2022 End: 02-21-2023 Comprehensive metabolic 2000 panel - Serum or Plasma [facility] Work Phone: Comment on above: Expected: 12/22/2022, Expires: 3 Start: 12-22-2022 End: 02-21-2023 Thyrotropin [Units/volume] in Serum or Plasma [facility] Work Phone: Comment on above: Expected: 12/22/2022, Expires: 3 Start: 12-22-2022 End: 02-21-2023 Thyroxine (T4) free [Mass/volume] in Serum or Plasma [facility] Work Phone: Comment on above: Expected: 12/22/2022, Expires: 3 Start: 12-05-2022 Covid-19 Vaccine () Covid-19 Vaccine () [facility] Start: 12-05-2022 Covid-19 Vaccine () Covid-19 Vaccine () [facility] Start: 12-05-2022 Influenza vaccination [facility] Start: 11-22-2022 BP CONTROLLED (<130/80) BP CONTROLLED (<130/80) [facility] Start: 09-19-2022 Adult depression screening assessment DEPRESSION SCREENING [facility] Start: 07-16-2022 ANNUAL PCP TEAM CHRONIC DISEASE VISIT ANNUAL PCP TEAM CHRONIC DISEASE VISIT [facility] Start: 07-16-2022 BP CONTROLLED (<130/80) BP CONTROLLED (<130/80) [facility] Start: 07-16-2022 HEMOGLOBIN/HEMATOCRIT HEMOGLOBIN/HEMATOCRIT [facility] Start: 07-16-2022 SERUM CREATININE SERUM CREATININE [facility] Start: 06-26-2022 End: 08-26-2022 Bacteria identified in Urine by Culture [facility] Work Phone: Comment on above: Expected: 06/26/2022, Expires: 3 Start: 06-26-2022 End: 08-26-2022 Urinalysis complete panel - Urine [facility] Work Phone: Comment on above: Expected: 06/26/2022, Expires: 3 Start: 04-28-2022 COVID-19 VACCINE (5 - Moderna series) COVID-19 VACCINE (5 - Moderna series) [facility] Start: 04-06-2022 ADVANCE DIRECTIVE DISCUSSION ADVANCE DIRECTIVE DISCUSSION [facility] Start: 04-06-2022 DEPRESSION ASSESSMENT DEPRESSION ASSESSMENT [facility] Start: 01-02-2022 End: 03-04-2022 Comprehensive metabolic 2000 panel - Serum or Plasma COMP METABOLIC PANEL Lab Routine Leg swelling Function kidney decreased Shortness of breath Expected: 01/02/2022, Expires: 03/04/2022 [facility] Work Phone: Comment on above: Expected: 01/02/2022, Expires: 2 Start: 01-02-2022 End: 03-04-2022 Natriuretic peptide.B prohormone N-Terminal [Mass/volume] in Serum or Plasma NT PRO BNP Lab Routine Leg swelling Shortness of breath Expected: 01/02/2022, Expires: 03/04/2022 [facility] Work Phone: Comment on above: Expected: 01/02/2022, Expires: 2 Start: 12-05-2021 Influenza vaccination INFLUENZA (#1) [facility] Start: 07-06-2021 COVID-19 VACCINE (4 - Booster for Moderna series) COVID-19 VACCINE (4 - Booster for Moderna series) [facility] Start: 05-02-2021 COVID-19 VACCINE (4 - Booster for Moderna series) COVID-19 VACCINE (4 - Booster for Moderna series) [facility] Start: 04-06-2021 ADVANCE DIRECTIVE DISCUSSION ADVANCE DIRECTIVE DISCUSSION [facility] Start: 04-06-2021 DEPRESSION ASSESSMENT DEPRESSION ASSESSMENT [facility] Start: 11-26-2019 Adult depression screening assessment DEPRESSION SCREENING [facility] Start: 11-24-2018 Screening for malignant neoplasm of breast [facility] Start: 2017 RSV Vaccine (1 - 1-dose 75+ series) RSV Vaccine (1 - 1-dose 75+ series) [facility] Start: 07-12-2009 SHINGRIX VACCINE (2 of 3) SHINGRIX VACCINE (2 of 3) [facility] Start: 07-12-2009 [facility] Start: 07-05-2008 Medicare Annual Wellness Visit Medicare Annual Wellness Visit [facility] Start: 2002 RSV Vaccine (1 - 1-dose 60+ series) RSV Vaccine (1 - 1-dose 60+ series) [facility] Start: 06-20-1987 Screening for malignant neoplasm of colon [facility] Start: 06-20-1963 Screening for malignant neoplasm of cervix [facility] Start: 1960 BP CONTROLLED (<130/80) BP CONTROLLED (<130/80) [facility] Start: 1942 Screening for osteoporosis [facility] Alanine aminotransfe rase [Enzymatic activity/volume] in Serum or Plasma [facility] Albumin [Mass/volume ] in Serum or Plasma [facility] Alkaline phosphatase [Enzymatic activity/volume] in Serum or Plasma [facility] Anion gap in Serum o r Plasma [facility] Anion gap in Serum o r Plasma [facility] Anion gap in Serum o r Plasma [facility] Anion gap in Serum o r Plasma [facility] Anion gap in Serum o r Plasma [facility] Anion gap measurement [facility] Anion gap measurement [facility] Anion gap measurement [facility] Arthrocentesis aspir &/inj major jt/bursa w/o us DRAIN/INJECT LARGE JOINT/BURSA Procedures Routine Primary osteoarthritis of both shoulders Ordered: 02/16/2023 [facility] Work Phone: Comment on above: Ordered: 02/16/2023 Arthrocentesis aspir &/inj major jt/bursa w/o us DRAIN/INJECT LARGE JOINT/BURSA Procedures Routine Primary osteoarthritis of both shoulders Ordered: 05/18/2023 [facility] Work Phone: Comment on above: Ordered: 05/18/2023 Aspartate aminotransferase [Enzymatic activity/volume] in Serum or Plasma [facility] Bilirubin, total measurement [facility] Blood chemistry [facility] BUN/Creatinine ratio [facility] BUN/Creatinine ratio [facility] BUN/Creatinine ratio [facility] BUN/Creatinine ratio [facility] BUN/Creatinine ratio [facility] BUN/Creatinine ratio [facility] BUN/Creatinine ratio [facility] BUN/Creatinine ratio [facility] Calcium [Mass/volume ] in Serum or Plasma [facility] Calcium [Mass/volume ] in Serum or Plasma [facility] Calcium [Mass/volume ] in Serum or Plasma [facility] Calcium [Mass/volume ] in Serum or Plasma [facility] Calcium [Mass/volume ] in Serum or Plasma [facility] Calcium [Mass/volume ] in Serum or Plasma [facility] Calcium [Mass/volume ] in Serum or Plasma [facility] Calcium [Mass/volume ] in Serum or Plasma [facility] Carbon dioxide, tota l [Moles/volume] in Central venous blood [facility] Carbon dioxide, tota l [Moles/volume] in Central venous blood [facility] Carbon dioxide, tota l [Moles/volume] in Central venous blood [facility] Carbon dioxide, tota l [Moles/volume] in Central venous blood [facility] Carbon dioxide, tota l [Moles/volume] in Central venous blood [facility] Carbon dioxide, tota l [Moles/volume] in Serum or Plasma [facility] Carbon dioxide, tota l [Moles/volume] in Serum or Plasma [facility] Carbon dioxide, tota l [Moles/volume] in Serum or Plasma [facility] Catheterization of l eft heart [facility] Chloride [Moles/volu me] in Serum or Plasma [facility] Chloride [Moles/volu me] in Serum or Plasma [facility] Chloride [Moles/volu me] in Serum or Plasma [facility] Clostridioides diffi cile toxin genes [Presence] in Stool by JEANA with probe detection C. DIFFICILE PCR Lab Routine Rectal bleeding 05/16/2022 8:40 AM EST [facility] Work Phone: Clostridioides diffi cile toxin genes [Presence] in Stool by JEANA with probe detection C. DIFFICILE PCR Lab Routine Change in stool Ordered: 06/26/2022 [facility] Work Phone: Comment on above: Ordered: 06/26/2022 End: 05-05-2024 CMV IGG & IGM, QUANT. [facility] Creatinine [Mass/vol ume] in Serum or Plasma [facility] Creatinine [Mass/vol ume] in Serum or Plasma [facility] Creatinine [Mass/vol ume] in Serum or Plasma [facility] Creatinine [Mass/vol ume] in Serum or Plasma [facility] Creatinine [Mass/vol ume] in Serum or Plasma [facility] Creatinine [Moles/vo lume] in Serum or Plasma [facility] Creatinine [Moles/vo lume] in Serum or Plasma [facility] Creatinine [Moles/vo lume] in Serum or Plasma [facility] End: 08-17-2022 Ct abdomen & pelvis w/o contrast material CT ABD/PEL WO IVCON Radiology Routine Left upper quadrant abdominal pain 1 Occurrences starting 07/18/2021 until 08/17/2022 [facility] Work Phone: Comment on above: 1 Occurrences starting 07/18/2021 until 08/17/2022 Dstrj neurolytic age nt other peripheral nerve NRV DESTR RFA, CHEM OTHER Procedures Routine Primary osteoarthritis of both shoulders Ordered: 07/15/2023 [facility] Work Phone: Comment on above: Ordered: 07/15/2023 Dstrj neurolytic age nt other peripheral nerve NRV DESTR RFA, CHEM OTHER Procedures Routine Primary osteoarthritis of both shoulders Ordered: 11/16/2023 [facility] Work Phone: Comment on above: Ordered: 11/16/2023 End: 05-05-2024 EBV VCA IGG AND IGM U [facility] Erythrocyte mean corpuscular volume determination [facility] Erythrocyte mean corpuscular volume determination [facility] Erythrocyte mean corpuscular volume determination [facility] Erythrocyte mean corpuscular volume determination [facility] Erythrocyte mean corpuscular volume determination [facility] Erythrocyte mean corpuscular volume determination [facility] Erythrocyte mean corpuscular volume determination [facility] Erythrocyte mean corpuscular volume determination [facility] Glucose [Mass/volume ] in Serum or Plasma [facility] Glucose [Mass/volume ] in Serum or Plasma [facility] Glucose [Mass/volume ] in Serum or Plasma [facility] Glucose [Mass/volume ] in Serum or Plasma [facility] Glucose [Mass/volume ] in Serum or Plasma [facility] Glucose [Mass/volume ] in Serum or Plasma [facility] Glucose [Mass/volume ] in Serum or Plasma [facility] Glucose [Mass/volume ] in Serum or Plasma [facility] Hematocrit [Volume Fraction] of Blood [facility] Hematocrit [Volume Fraction] of Blood [facility] Hematocrit [Volume Fraction] of Blood [facility] Hematocrit [Volume Fraction] of Blood [facility] Hematocrit [Volume Fraction] of Blood [facility] Hematocrit [Volume Fraction] of Blood [facility] Hematocrit [Volume Fraction] of Blood [facility] Hematocrit [Volume Fraction] of Blood [facility] Hematocrit [Volume Fraction] of Blood [facility] Hemoglobin [Mass/vol ume] in Blood [facility] Hemoglobin [Mass/vol ume] in Blood [facility] Hemoglobin [Mass/vol ume] in Blood [facility] Hemoglobin [Mass/vol ume] in Blood [facility] Hemoglobin [Mass/vol ume] in Blood [facility] Hemoglobin [Mass/vol ume] in Blood [facility] Hemoglobin [Mass/vol ume] in Blood [facility] Hemoglobin [Mass/vol ume] in Blood [facility] Hemoglobin [Mass/vol ume] in Blood [facility] Leukocytes [#/volume ] in Blood [facility] Leukocytes [#/volume ] in Blood [facility] Leukocytes [#/volume ] in Blood [facility] Leukocytes [#/volume ] in Blood [facility] Leukocytes [#/volume ] in Blood [facility] Leukocytes [#/volume ] in Blood [facility] Leukocytes [#/volume ] in Blood [facility] Leukocytes [#/volume ] in Blood [facility] Magnesium [Mass/volu me] in Serum or Plasma [facility] Mean corpuscular hemoglobin concentration determination [facility] Mean corpuscular hemoglobin concentration determination [facility] Mean corpuscular hemoglobin concentration determination [facility] Mean corpuscular hemoglobin concentration determination [facility] Mean corpuscular hemoglobin concentration determination [facility] Mean corpuscular hemoglobin concentration determination [facility] Mean corpuscular hemoglobin concentration determination [facility] Mean corpuscular hemoglobin concentration determination [facility] Mean corpuscular hemoglobin determination [facility] Mean corpuscular hemoglobin determination [facility] Mean corpuscular hemoglobin determination [facility] Mean corpuscular hemoglobin determination [facility] Mean corpuscular hemoglobin determination [facility] Mean corpuscular hemoglobin determination [facility] Mean corpuscular hemoglobin determination [facility] Mean corpuscular hemoglobin determination [facility] Measurement of renal function [facility] Measurement of renal function [facility] Measurement of renal function [facility] Measurement of renal function [facility] Measurement of renal function [facility] Measurement of renal function [facility] Measurement of renal function [facility] Measurement of renal function [facility] Neutrophil count [facility] Neutrophil count [facility] Neutrophil count [facility]rophil count [facility] Neutrophil percent differential count [facility] Neutrophil percent differential count [facility] Neutrophil percent differential count [facility] Neutrophil percent differential count [facility] Neutrophil percent differential count [facility] Neutrophil percent differential count [facility] Neutrophil percent differential count [facility] Neutrophil percent differential count [facility] Nucleic acid assay [facility] Patient Education [facility] Work Phone: Patient referral [facility] Work Phone: Platelets [#/volume] in Blood [facility] Platelets [#/volume] in Blood [facility] Platelets [#/volume] in Blood [facility] Platelets [#/volume] in Blood [facility] Platelets [#/volume] in Blood [facility] Platelets [#/volume] in Blood [facility] Platelets [#/volume] in Blood [facility] Platelets [#/volume] in Blood [facility] Potassium [Moles/vol ume] in Serum or Plasma [facility] Potassium [Moles/vol ume] in Serum or Plasma [facility] Potassium [Moles/vol ume] in Serum or Plasma [facility] Potassium measurement [facility] Potassium measurement [facility] Potassium measurement [facility] Potassium measurement [facility] Potassium measurement [facility] Prq impltj neurostimulator eltrd peripheral nrv PERCUT IMPLANT NEUROELEC. Procedures Routine Chronic bilateral low back pain without sciatica Lumbar spondylosis Ordered: 07/30/2022 [facility] Work Phone: Comment on above: Ordered: 07/30/2022 Prq impltj neurostimulator eltrd peripheral nrv PERCUT IMPLANT NEUROELEC. Procedures Routine Lumbar spondylosis Chronic bilateral low back pain without sciatica Ordered: 08/13/2022 [facility] Work Phone: Comment on above: Ordered: 08/13/2022 PT PLAN OF CARE CERTIFICATION PT PLAN OF CARE CERTIFICATION Procedures Routine Lymphedema Ordered: 11/22/2021 [facility] Comment on above: Ordered: 11/22/2021 End: 10-19-2022 [facility] spine lumbosacral minimum 4 views XR LUMBAR MOTION 4V AP/LAT/ FLEX/EXT Radiology Routine Lumbar spondylosis 1 Occurrences starting 09/19/2021 until 10/19/2022 [facility] Work Phone: Comment on above: 1 Occurrences starting 09/19/2021 until 10/19/2022 [facility] spine lumbosac ral minimum 4 views XR LUMBAR MOTION 4V AP/LAT/ FLEX/EXT Radiology Routine Lumbar spondylosis 09/20/2021 1:48 PM [facility] Work Phone: End: 10-19-2022 [facility] spine thoracic 2 views XR THORACIC LIMITED 2V AP/LAT Radiology Routine Thoracic spine pain 1 Occurrences starting 09/19/2021 until 10/19/20[facility]: Comment on above: 1 Occurrences starting 09/19/2021 until 10/19/2022 [facility] spine thoracic 2 views XR THORACIC LIMITED 2V AP/LAT Radiology Routine Thoracic spine pain 09/20/2021 1:48 PM EDT [facility] Work Phone: Red blood cell count [facility] Red blood cell count [facility] Red blood cell count [facility] Red blood cell count [facility] Red blood cell count [facility] Red blood cell count [facility] Red blood cell count [facility] Red blood cell count [facility] Red cell distributio n width determination [facility] Red cell distributio n width determination [facility] Red cell distributio n width determination [facility] Red cell distributio n width determination [facility] Red cell distributio n width determination [facility] Red cell distributio n width determination [facility] Red cell distributio n width determination [facility] Red cell distributio n width determination [facility] Serum chloride measurement [facility] Serum chloride measurement [facility] Serum chloride measurement [facility] Serum chloride measurement [facility] Serum chloride measurement [facility] Serum inorganic phos phate measurement [facility] Sodium [Moles/volume ] in Serum or Plasma [facility] Sodium [Moles/volume ] in Serum or Plasma [facility] Sodium [Moles/volume ] in Serum or Plasma [facility] Sodium measurement [facility] Sodium measurement [facility] Sodium measurement [facility] Sodium measurement [facility] Sodium measurement [facility] Total protein measurement [facility] Troponin T.cardiac [Mass/volume] in Serum or Plasma by High sensitivity method [facility] Troponin T.cardiac [Mass/volume] in Serum or Plasma by High sensitivity method [facility] Urea nitrogen [Mass/volume] in Serum or Plasma [facility] Urea nitrogen [Mass/volume] in Serum or Plasma [facility] Urea nitrogen [Mass/volume] in Serum or Plasma [facility] Urea nitrogen [Mass/volume] in Serum or Plasma [facility] Urea nitrogen [Mass/volume] in Serum or Plasma [facility] Urea nitrogen [Mass/volume] in Serum or Plasma [facility] Urea nitrogen [Mass/volume] in Serum or Plasma [facility] Urea nitrogen [Mass/volume] in Serum or Plasma [facility] URODYNAMICS WHI URODYNAMICS I Procedures Routine Female stress incontinence Urge urinary incontinence Ordered: 06/30/2022 [facility] Work Phone (unformatted): [phone] Comment on above: Ordered: 06/30/2022 End: 02-01-2023 Us abdominal real time w/image documentation US ABDOMEN COMPLETE Radiology STAT Abdominal distension 1 Occurrences starting 01/02/2022 until 02/01/2023 [facility] Work Phone: Comment on above: 1 Occurrences starting 01/02/2022 until 02/01/2023 End: 10-12-2025 XR Chest PA and Lateral XR CHEST 2V FRONTAL/LAT Radiology Routine Subacute cough 1 Occurrences starting 09/12/2024 until 10/12/2025 [facility] Work Phone: Comment on above: 1 Occurrences starting 09/12/2024 until 10/12/2025 XR Chest PA and Lateral XR CHEST 2V FRONTAL/LAT Radiology Routine Subacute cough 09/12/2024 4:11 PM EDT [facility] End: 02-14-2024 XR SHOULDER LIMITED 2V AP/TRUE AP LEFT XR SHOULDER LIMITED 2V AP/TRUE AP LEFT Radiology Routine Primary osteoarthritis of both shoulders Rotator cuff impingement syndrome, unspecified laterality 1 Occurrences starting 01/15/2023 until 02/14/2024 [facility] Work Phone: Comment on above: 1 Occurrences starting 01/15/2023 until 02/14/2024 XR SHOULDER LIMITED 2V AP/TRUE AP LEFT XR SHOULDER LIMITED 2V AP/TRUE AP LEFT Radiology Routine Primary osteoarthritis of both shoulders Rotator cuff impingement syndrome, unspecified laterality 01/15/2023 11:18 AM EDT [facility] Work Phone: End: 02-14-2024 XR SHOULDER [id number] AP/TRUE AP RIGHT XR SHOULDER [id number] AP/TRUE AP RIGHT Radiology Routine Primary osteoarthritis of both shoulders Rotator cuff impingement syndrome, unspecified laterality 1 Occurrences starting 01/15/2023 until 02/14/2024 [facility] Work Phone: Comment on above: 1 Occurrences starting 01/15/2023 until 02/14/2024 XR SHOULDER LIMITED2 V AP/TRUE AP RIGHT XR SHOULDER [id number] AP/TRUE AP RIGHT Radiology Routine Primary osteoarthritis of both shoulders Rotator cuff impingement syndrome, unspecified laterality 01/15/2023 11:17 AM EDT [facility] Work Phone: [facility] Immunizations Immunization Date Immunization Notes Care Provider Fa trung 10-26-2024 tetanus toxoid, redu tana diphtheria toxoid, and acellular pertussis vaccine, adsorbed Miryam Orozco STOPER-C Work Phone: [facility] 03-23-2024 respiratory syncytia l virus (RSV) vaccine, adjuvanted (AREXVY) Lizy Capone MD Work Phone: [facility] 01-28-2024 COVID-19 vaccine, ag e 12+ yr (PFIZER-BIONTECH COMIRNATY) Miryam Orozco BUSINESS OFFICE TECHNOLOGY INSTRUCTOR.MRI MANAGER Work Phone: [facility] 01-28-2024 influenza, high dose seasonal, preservative-free Miryam Orozco BUSINESS OFFICE TECHNOLOGY INSTRUCTOR.MRI MANAGER Work Phone: [facility] 01-28-2024 influenza virus vacc ine, unspecified formulation Lizy Capone MD Work Phone: [facility] 01-04-2023 influenza, injectabl e, quadrivalent, preservative free Dr. Judson Toney Work Phone: [facility] 01-04-2023 influenza virus vacc ine, unspecified formulation Roque Delgado MD Work Phone: [facility] 02-12-2022 Influenza High-Dose Quadrivalent Dr. Judson Toney Work Phone: [facility] 02-12-2022 influenza, high dose seasonal, preservative-free Lizy Capone MD Work Phone: [facility] 02-12-2022 influenza virus vacc ine, unspecified formulation Miryam Orozco BUSINESS OFFICE TECHNOLOGY INSTRUCTOR.MRI MANAGER Work Phone: [facility] 12-27-2021 COVID-19 booster vaccine, age 18+ yr, bivalent (MODERNA) Allison Lemon PT [facility] 12-27-2021 COVID-19 vaccine, ag e 12+ yr, bivalent (PFIZER-BIONTECH) Roque Delgado MD Work Phone: [facility] Work Phone: 03-07-2021 Covid (Moderna) Dr. Judson nunez Work Phone: [facility] 12-17-2020 Influenza High-Dose Quadrivalent Dr. Judson Toney Work Phone: [facility] 12-17-2020 influenza, high dose seasonal, preservative-free Lizy Capone MD Work Phone: [facility] 07-02-2020 Covid (Moderna) Dr. Lizy lucero Work Phone: [facility] 06-04-2020 Covid (Moderna) Dr. Lizy lucero Work Phone: [facility] 11-23-2019 Influenza, high dose seasonal Miryam Tannhof STOPER-C Work Phone: [facility] 11-23-2019 influenza, high dose seasonal, preservative-free Lizy Capone MD Work Phone: [facility] 01-06-2019 Seasonal trivalent influenza vaccine, adjuvanted, preservative free Dr. Judson Toney Work Phone: [facility] 12-11-2017 Influenza, high dose seasonal Miryam Tannhof STOPER-C Work Phone: [facility] 12-11-2017 influenza, high dose seasonal, preservative-free Lizy Capone MD Work Phone: [facility] 08-31-2017 tetanus toxoid, redu tana diphtheria toxoid, and acellular pertussis vaccine, adsorbed Lizy Capone MD Work Phone: [facility] 01-06-2017 Influenza, high dose seasonal Miryam Serraf STOPER-C Work Phone: [facility] 01-06-2017 influenza, high dose seasonal, preservative-free Lizy Capone MD Work Phone: [facility] 01-29-[address] Lizy Capone Work Phone: [facility] 01-23-2016 Influenza, high dose seasonal Miryam Tannhof STOPER-C Work Phone: [facility] 01-23-2016 influenza, high dose seasonal, preservative-free Dr. Judson Toney Work Phone: [facility] 12-06-2015 Influenza, high dose seasonal Miryam Orozco STOPER-C Work Phone: [facility] 12-06-2015 influenza, high dose seasonal, preservative-free Lizy Capone MD Work Phone: [facility] 02-26-2015 pneumococcal conjuga te vaccine, 13 valent Lizy Capone MD Work Phone: [facility] 12-30-2014 Influenza, high dose seasonal Miryam Orozco STOPER-C Work Phone: [facility] 12-30-2014 influenza, high dose seasonal, preservative-free Lizy Capone MD Work Phone: [facility] 02-02-2012 influenza virus vacc ine, unspecified formulation Lizy Capone MD Work Phone: [facility] 02-02-2012 pneumococcal polysaccharide vaccine, 23 valent Lizy Capone MD Work Phone: [facility] 02-21-2010 influenza virus vacc ine, unspecified formulation Lizy Capone MD Work Phone: [facility] 05-17-2009 zoster vaccine, live Lizy chavis MD Work Phone: [facility] 04-16-2009 novel influenza-H1N1 -09, preservative-free, injectable Dr. Judson Toney Work Phone: [facility] 02-03-2008 influenza virus vacc ine, unspecified formulation Lizy Capone MD Work Phone: [facility] 07-01-2007 tuberculin skin test ; purified protein derivative solution, intradermal Starr Marques MD Work Phone: [facility] 02-04-2007 influenza virus vacc ine, unspecified formulation Lizy Capone MD Work Phone: [facility] Work Phone: 01-06-2007 pneumococcal polysaccharide vaccine, 23 valent Lizy Capone MD Work Phone: [facility] 02-03-2006 influenza virus vacc ine, whole virus Lizy Capone MD Work Phone: [facility] Work Phone: 01-30-2005 influenza virus vacc ine, whole virus Lizy Capone MD Work Phone: [facility] Work Phone: 01-06-2005 pneumococcal conjuga te vaccine, 7 valent Lizy Capone MD Work Phone: [facility] Work Phone: 12-26-1999 tetanus toxoid, adsorbed Mar ashley Capone MD Work Phone: [facility] Work Phone: Payers Date Payer Category Payer Managed Care (unspecified) [id number] 2023 Medicare [id number] 2023 Self-pay [id number] 2023 Unknown [id number] 2008 Medicare MEDICARE MEDICAR E A AND B [id number] 2008-Present [phone] [address] [address] [place] [address] Medicare [id number] 2008 Medicare [id number] 2008 Unknown FORMERLY [facility] RESOURCES [id number] 2008-Present [address] [place] [address] Indemnity [id number] [id number] 2008 Unknown [id number] 2007 Medicare [id number] 1998 Unknown [id number] 1.13.159. [id number] 1942 Unknown [id number] 2.16.840.1.526193.3.579. 2.732 1942 Unknown [id number] 2.16.840.1.196559.3.579. 2.594 Unknown [id number] 2.16.840.1.146385.3.579. 2.462 Unknown [id number] 2.16.840.1.977520.3.579. 2.462 Unknown [id number] 2.16.840.1.978663.3.579. 2.462 Unknown [id number] 2.16.840.1.389423.3.579. 2.462 Unknown [id number] 2.16.840.1.176022.3.579. 2.462 Unknown [id number] 2.16.840.1.771235.3.579. 2.462 Unknown [id number] 2.16.840.1.481460.3.579. 2.462 Unknown [id number] 2.16.840.1.542963.3.579. 2.462 Unknown [id number] 2.16.840.1.267446.3.579. 2.462 Unknown [id number] 2.16.840.1.074041.3.579. 2.462 Unknown [id number] 2.16.840.1.058865.3.579. 2.462 Unknown [id number] 2.16.840.1.857132.3.579. 2.462 Unknown [id number] 2.16.840.1.890937.3.579. 2.462 Unknown [id number] 2.16.840.1.211978.3.579. 2.462 Unknown [id number] 2.16.840.1.055010.3.579. 2.462 Unknown [id number] 2.16.840.1.877962.3.579. 2.462 Unknown [id number] 2.16.840.1.633018.3.579. 2.462 Unknown [id number] 2.16.840.1.447801.3.579. 2.462 Unknown [id number] 2.16.840.1.164621.3.579. 2.462 Unknown [id number] 2.16.840.1.159287.3.579. 2.462 Unknown [id number] 2.16.840.1.550286.3.579. 2.462 Unknown [id number] 2.16.840.1.478956.3.579. 2.462 Unknown [id number] 2.840.1.750532.3.579. 2.462 Unknown [id number] 2.840.1.870257.3.579. 2.462 Unknown [id number] 2.840.1.800795.3.579. 2.462 Unknown [id number] 2.16840.1.902522.3.579. 2.462 Unknown [id number] 2.16840.1.928401.3.579. 2.462 Unknown [id number] 2.840.1.782151.3.579. 2.462 Unknown [id number] 2.16.840.1.729152.3.579. 2.462 Unknown [id number] 2.16.840.1.094281.3.579. 2.462 Unknown [id number] 2.16.840.1.056653.3.579. 2.462 Unknown [id number] 2.16.840.1.249279.3.579. 2.462 Unknown [id number] 2.16840.1.334051.3.579. 2.462 Unknown [id number] 2.16.840.1.575886.3.579. 2.462 Unknown [id number] 2.16.840.1.243832.3.579. 2.462 Unknown [id number] 2.16.840.1.577921.3.579. 2.462 Unknown [id number] 2.16.840.1.246280.3.579. 2.462 Unknown [id number] 2.16840.1.296500.3.579. 2.462 Unknown [id number] 2.16840.1.978513.3.579. 2.462 Unknown [id number] 2.840.1.523259.3.579. 2.462 Unknown [id number] 2.840.1.168814.3.579. 2.462 Unknown [id number] 2.840.1.978836.3.579. 2.462 Unknown [id number] 2.840.1.015141.3.579. 2.462 Unknown [id number] 2.840.1.414736.3.579. 2.462 Unknown [id number] 2.840.1.598651.3.579. 2.462 Unknown [id number] 2.16840.1.896102.3.579. 2.462 Unknown [id number] 2.840.1.313092.3.579. 2.462 Unknown [id number] 2.16840.1.655059.3.579. 2.462 Unknown [id number] 2.16840.1.750149.3.579. 2.462 Unknown [id number] 2.16.840.1.812348.3.579. 2.462 Unknown [id number] 2.16.840.1.315442.3.579. 2.462 Unknown [id number] 2.16840.1.414460.3.579. 2.462 Unknown [id number] 2.16.840.1.236893.3.579. 2.462 Unknown [id number] 2.16.840.1.286385.3.579. 2.462 Unknown [id number] 2.16.840.1.247603.3.579. 2.462 Unknown [id number] 2.16.840.1.376579.3.579. 2.462 Unknown [id number] 2.16.840.1.091523.3.579. 2.462 Unknown [id number] 2.16.840.1.498283.3.579. 2.462 Unknown [id number] 2.16.840.1.373992.3.579. 2.462 Unknown [id number] 2.16.840.1.902041.3.579. 2.462 Unknown [id number] 2.16.840.1.046036.3.579. 2.462 Unknown [id number] 2.16.840.1.638976.3.579. 2.462 Unknown [id number] 2.16.840.1.545415.3.579. 2.462 Unknown [id number] 2.16.840.1.283761.3.579. 2.462 Unknown [id number] 2.16.840.1.371779.3.579. 2.462 Unknown [id number] 2.16.840.1.118546.3.579. 2.462 Unknown [id number] 2.16.840.1.799814.3.579. 2.462 Unknown [id number] 2.16.840.1.843541.3.579. 2.462 Unknown [id number] 2.16.840.1.606490.3.579. 2.462 Unknown [id number] 2.16.840.1.993258.3.579. 2.462 Unknown [id number] 2.16.840.1.151591.3.579. 2.462 Unknown [id number] 2.16.840.1.555702.3.579. 2.462 Unknown [id number] 2.16.840.1.519298.3.579. 2.462 Unknown [id number] 2.16.840.1.790317.3.579. 2.462 Unknown [id number] 2.16.840.1.062646.3.579. 2.462 Unknown [id number] 2.16.840.1.558338.3.579. 2.462 Unknown [id number] 2.16840.1.536487.3.579. 2.462 Unknown [id number] 2.16.840.1.518500.3.579. 2.462 Unknown [id number] 2.16840.1.681522.3.579. 2.462 Unknown [id number] 2.16.840.1.226814.3.579. 2.462 Unknown [id number] 2.16.840.1.523284.3.579. 2.462 Unknown [id number] 2.16.840.1.368941.3.579. 2.462 Unknown [id number] 2.16.840.1.342203.3.579. 2.462 Unknown [id number] 2.16.840.1.357372.3.579. 2.462 Unknown [id number] 2.16.840.1.801004.3.579. 2.462 Unknown [id number] 2.16.840.1.573253.3.579. 2.462 Unknown [id number] 2.16.840.1.318791.3.579. 2.462 Unknown [id number] 2.16.840.1.008899.3.579. 2.462 Unknown [id number] 2.16.840.1.621309.3.579. 2.462 Unknown [id number] 2.16.840.1.499830.3.579. 2.462 Unknown [id number] 2.16.840.1.918041.3.579. 2.462 Unknown [id number] 2.16.840.1.281261.3.579. 2.462 Unknown [id number] 2.16.840.1.170211.3.579. 2.462 Social History Date Type Detail Facility Start: 04-27-2017 End: 12-04-2023 Tobacco smoking status NHIS Ex-smoker [facility] Start: 04-06-1952 End: 04-06-1953 History of tobacco use Current smoker [facility] Work Phone: Start: 04-06-1952 End: 04-06-1953 History of tobacco use Cigarette Smoker [facility] Work Phone: Start: 07-16-2021 End: 10-24-2024 Alcohol intake Current drinker of alcohol (finding) [facility] Start: 11-18-2016 History SDOH Alcohol Comment ocas glass of wine [facility] Start: 1940 Sex Assigned At Not on file [facility] Start: 07-06-2021 End: 01-30-2022 Exposure to SARS-CoV-2 (event) Not sure [facility] Start: 08-06-2021 End: 05-05-2024 Tobacco smoking status [facility] Unknown if ever smoked [facility] Start: 04-15-2016 None [facility] Start: 01-09-2021 Non-smoker [facility] Start: 1940 Sex Assigned At Female W [facility] Start: 04-27-2017 End: 09-26-2022 Cigarettes smoked current (pack per day) - Reported 0.3 [facility] Start: 04-27-2017 End: 12-04-2023 Tobacco use and exposure Smokeless tobacco non-user [facility] Start: 11-28-2021 History SDOH Alcohol Comment occasionally [facility] Start: 09-26-2022 End: 10-16-2022 Tobacco use panel [facility] Adult Depression Screening Assessment 0 [facility] Start: 04-15-2016 Roommate [facility] Start: 03-14-2024 End: 07-29-2024 Sex Female (finding) [facility] Start: 05-18-2024 End: 10-29-2024 Tobacco smoking status NHIS Never smoked tobacco (finding) [facility] NEGATED: Highlighted row [facility] Medical Equipment Procedure Code Equipment Code Equipment Origin al Text Equipment Identifier Dates Anchr Sut 4.5mm Pshlk Spnl - [id number] Start: 04-24-2011 Comment on above: Description: PEEK PU SHLOCK Goals Date Patient Goal Desired Activity /State Functional Status Date Assessment Result Facility 11-01-2024 Functional status Ambulates [facility] Work Phone: 10-20-2024 Functional status Chair [facility] Work Phone: 10-19-2024 Functional status Standard Walker [facility] Work Phone: 10-18-2024 Functional status Ambulates [facility] Work Phone: 10-16-2024 Functional status Ambulates;Bath room Privilege [facility] Work Phone: 10-12-2024 Functional status With Assist of 1 [facility] Work Phone: 10-11-2024 Functional status Ambulates [facility] Work Phone: 10-04-2024 Functional status Ambulates [facility] Work Phone: 10-03-2024 Functional status Ambulates [facility] Work Phone: 06-10-2024 Functional status With Assist of 2 [facility] Work Phone: 06-07-2024 Functional status Bedrest [facility] Work Phone: 05-10-2024 Are you deaf, or do you have serious difficulty hearing No [facility] 05-10-2024 Are you blind, or do you have serious difficulty seeing, even when wearing glasses No [facility] 05-10-2024 Do you have serious difficulty walking or climbing stairs No [facility] 05-10-2024 Do you have difficul ty dressing or bathing Yes [facility] 05-10-2024 Because of a physica l, mental, or emotional condition, do you have difficulty doing errands alone such as visiting a physician's office or shopping Yes [facility] 05-05-2024 Functional status Patient unable to answe r [facility] 05-04-2024 Functional status Bedrest [facility] Work Phone: 06-09-2023 Functional status Ambulates [facility] Work Phone: 08-15-2013 Are you deaf, or do you have serious difficulty hearing No 08/15/2013 4:14 PM EDT Alex Lackey MA No [facility] 08-15-2013 Are you blind, or do you have serious difficulty seeing, even when wearing glasses No 08/15/2013 4:14 PM WILTONT Alex Lackey MA No [facility] 08-15-2013 Do you have serious difficulty walking or climbing stairs No 08/15/2013 4:14 PM EDT Alex Lackey MA No [facility] 08-15-2013 Do you have difficul ty dressing or bathing No 08/15/2013 4:14 PM EDAlex Obregon MA No [facility] 08-15-2013 Because of a physica l, mental, or emotional condition, do you have difficulty doing errands alone such as visiting a physician's office or shopping No 08/15/2013 4:14 PM EDAlex Obregon MA No [facility] Mental Status Date Assessment Result Facility 11-01-2024 Cognitive function Voice/Name [facility] Work Phone: 10-29-2024 Cognitive function Awake;Alert;A ppropriate; Follows Commands [facility] Work Phone: 10-20-2024 Cognitive function Voice/Name [facility] Work Phone: 10-17-2024 Cognitive function Voice/Name [facility] Work Phone: 10-16-2024 Cognitive function Voice/Name [facility] Work Phone: 10-14-2024 Cognitive function Voice/Name [facility] Work Phone: 10-12-2024 Cognitive function Voice/Name [facility] Work Phone: 10-09-2024 Cognitive function Appropriate;Cooperativ e [facility] Work Phone: 10-04-2024 Cognitive function Voice/Name [facility] Work Phone: 10-03-2024 Cognitive function Voice/Name [facility] Work Phone: 09-06-2024 Cognitive function Voice/Name [facility] Work Phone: 06-10-2024 Cognitive function Voice/Name [facility] Work Phone: 05-10-2024 Because of a physica l, mental, or emotional condition, do you have serious difficulty concentrating, remembering, or making decisions No [facility] 05-04-2024 Cognitive function Touch/Shaking;Light Pa in [facility] Work Phone: 05-03-2024 Cognitive function None [facility] Work Phone: 06-09-2023 Cognitive function Voice/Name [facility] Work Phone: 08-15-2013 Because of a physica l, mental, or emotional condition, do you have serious difficulty concentrating, remembering, or making decisions No 08/15/2013 4:14 PM EDT Alex Lackey MA No [facility] Clinical Notes 11-24-2016 to 11-03-2024 Telephone Encounter - Alex Lackey MA - 11/03/2024 11:51 AM EDTTelephone Encounter - Alex Lackey MA - 11/03/2024 11:51 AM EDT Note Date & Type Note Facility 11-03-2024 Telephone encount er Note Spoke with Alex, advised that Referral has been faxed to Palliative care jo and that she can call to schedule if they do not reach out to her. She voiced understanding. Alex Lackey MA [facility] 11-03-2024 Miscellaneous Notes Formattin g of this note might be different from the original. Spoke with Alex, advised that Referral has been faxed to Palliative care jo and that she can call to schedule if they do not reach out to her. She voiced understanding. Alex Lackey MA Order for Palliative Care done in other phone note Lizy Capone MD Pt Caregiver/friend Alex Sawyer stopped into office and left note for provider. Alex states she called last week to request Palliative Care and left a message with a nurse that was to pass that on to provider. Patient is now at [facility] in [place]. She is asking if perhaps Palliative can eliminate some meds-this is chemical-trying to get to the bottom of why patient is randomly shaking and gets weak. She would like to address the shaking. Pt is getting PT. Pt states she will not stay at [facility] and Caregiver states she is unable to care for pt further. Please advise. Pt hospital reports and discharge medication list on PCP's desk to review. Alex Lackey MA documented in this encounter [facility] 11-03-2024 Telephone encount er Note See other TE 11/03/24. Alex Lackey MA [facility] 11-03-2024 Miscellaneous Notes Formattin g of this note might be different from the original. See other TE 11/03/24. Alex Lackey MA OK for Palliative Care consult Lizy Capone MD Pt called in and reports she just saw Dr Capone on 10/24/24. She states she is in a wheelchair and isn't able to walk. Pt is requesting a referral to Palliative Care. She states she heard that if you have Palliative Care and have a medical appointment they will take you to them. Please call and advise Pt. Analia Gracia, KEVIN documented in this encounter [facility] 11-03-2024 Telephone encount er Note Order for Palliative Care done in other phone note Lizy Capone MD [facility] 11-03-2024 Telephone encount er Note Noted Lizy Capone MD [facility] 11-03-2024 Miscellaneous Notes Formattin g of this note might be different from the original. Noted Lizy Capone MD Shruthi- [facility]- phoned to report she spoke with caregiver, who informed Shruthi pt slept all night and has slept all day today. Has not been out of bed today. When Shruthi asked caregiver if pt has gotten up to use the bathroom, caregiver states pt is in a diaper. Shruthi states caregiver has not changed diaper today. Caregiver reports pt is not eating, not drinking, and is confused. Advised to ER for change in mental status. Shruthi agreeable and will call caregiver. documented in this encounter [facility] 11-03-2024 Telephone encount er Note Noted Lizy Capone MD [facility] 11-03-2024 Miscellaneous Notes Formattin g of this note might be different from the original. Noted Lizy Capone MD Briana noted. Will hold for Dr. Capone for his review. Mulugeta Jennings APRN.MRI MANAGER Deanne OT calling from [facility] to report plan of care for patient and OT will visit patient one time a week for four weeks. OT will work with patient on ADL's and functioning. Deanne reports that patient has an additional wound to leg. Notified that nursing has new orders for wounds. Friend (Cayla) was concerned for cognition. Patient is alert and oriented but foggy at times. Deanne reports that patient is not getting a round well. Confined to a w/c and safety is an issue for falls. Reports that patient is aware and has had a talk with friend who is not able to take care of her. Patient is to be looking into a private Aide or AL placement. SW with [facility] is currently looking into w/c transportation to take her to wound center appt on Thursday. Recommended if patient's condition continues to deteriorate she should go back to ER. Patient's friend is keeping a close eye on her for this. Olga Dillard RN documented in this encounter [facility] 11-03-2024 Telephone encount er Note OK for Palliative Care consult Lizy Capone MD [facility] 11-03-2024 Telephone encount er Note Pt Caregiver/friend Alex Sawyer stopped into office and left note for provider. Alex states she called last week to request Palliative Care and left a message with a nurse that was to pass that on to provider. Patient is now at [facility] in [place]. She is asking if perhaps Palliative can eliminate some meds-this is chemical-trying to get to the bottom of why patient is randomly shaking and gets weak. She would like to address the shaking. Pt is getting PT. Pt states she will not stay at [facility] and Caregiver states she is unable to care for pt further. Please advise. Pt hospital reports and discharge medication list on PCP's desk to review. Alex Lackey MA [facility] 11-01-2024 Consult note Note Date/Time November 01, 2024 11:25am [facility] Medical Records Department [address] [place] [id number] Counseling Note - Pharmacy 11/01/24 0923 MR#: [id number] Acct: [id number] Name: MARI LOPEZ Rep #:[id number] : 1940 84 From: Merle Liu PCP: Dr. Lizy Capone MD Status:AD M IN Location: [facility] [id number] 1 Pharmacy [place] Med Reconciliation Pharmacy Service has performed discharge medication reconciliation for this patient. The patient's discharge medication list was reviewed for discrepancies and discrepancies were resolved. Medications at Discharge Home Medications levonorgestrel (Mirena) 1 mcg intrauterine ONCE . 07/25/21 nitroglycerin 0.4 mg sublingual tablet 0.4 mg sublingual Q5M PRN chest pain #30 tabs 06/27/22 atorvastatin 40 mg tablet 40 mg PO QHS cholesterol 05/18/24 levothyroxine 125 mcg tablet 125 mcg PO DAILY thyroid 05/18/24 calcium acetate(phosphat bind) 667 mg capsule 667 mg PO TIDCM supplement #1 cap 06/09/24 sennosides 8.6 mg-docusate sodium 50 mg tablet (Stimulant Laxative Plus) 2 tab PO BID constipation #1 TAB 06/09/24 carvedilol 6.25 mg tablet 6.25 mg PO BID Blood pressure 09/28/24 multivitamin 1 tab PO DAILY Supplement 09/28/24 Arthritis Pain Compound 3 click topical BID 30 days #60 GMS 10/17/24 acetaminophen 500 mg tablet 1,000 mg (2 x 500 mg) PO TID #0 tabs 10/17/24 ferrous sulfate 325 mg (65 [...] PO 2200 30 days #15 tabs 10/17/24 sodium bicarbonate 650 mg tablet 650 mg PO 4X/DAY 30 days #120 tabs 10/17/24 apixaban 2.5 mg tablet (Eliquis) 2.5 mg PO BID 30 days #60 tabs 10/18/24 cholecalciferol (vitamin D3) 25 mcg (1,000 unit) tablet 50 mcg PO DAILY 10/26/24 doxycycline hyclate 100 mg capsule 100 mg PO BID 5 days #10 caps 10/26/24 fluoride (sodium) 1.1 % dental cream (Denta 5000 Plus) 1 applic PO Q24H 10/26/24 lacosamide 100 mg tablet 100 mg PO Q12H 10/26/24 nystatin 100,000 unit/gram topical powder (Klayesta) topical 10/26/24 vibegron 75 mg tablet (Gemtesa) 75 mg PO DAILY 10/26/24 polyethylene glycol 3350 17 gram/dose oral powder (Miralax) 17 g PO DAILY 10/29/24 11/01/24922 <Electronically signed by Merle Liu> Date _ Merle Liu Cosigner Signature (if applicable): Date CC: ~ Signed [facility] Work Phone: 1(446) 928-472707-29-2025 Discharge summary Author Donell Ferrara [facility] Note Date/Time November 01, 2024 9:08 am [facility] Medical Records Department [address] [place] [address] Transfer to [facility] MR#: [id number] Acct: [id number] Name: MARI LOPEZ Rep #:[id number] : 1940 84 From: Donell rubin MD PCP: Dr. Lizy Capone MD Status:AD M IN Certification of patient admission REQUIRED AT TIME OF ADMISSION. I CERTIFY THAT POST-HOSPITAL ECF SERVICES ARE REQUIRED TO BE GIVEN ON AN IN-PATIENT BASIS BECAUSE OF THE ABOVE NAMED PATIENT'S NEED FOR ALF CARE ON A CONTINUING BASIS FOR THE CONDITION(S) FOR WHICH HE/SHE WAS RECEIVING IN-PATIENT HOSPITAL SERVICES PRIOR TO HIS/HER TRANSFER TO THE [facility]. 11/01/24 09<Electronically signed by Donell Ferrara MD> Diet Diet Order/Speech Therapy: INPATIENT Hospital Diet / Speech Therapy Order(s) 10/29/24 06:48 Diet: Cardiac - Heart Healthy Food consistency:: Regular Liquid Consistency:: Regular/Thin Fluid restriction:: 1500 mL Routine Orders/Code Status Routine Lab Work: CBC and BMP Code Status: DNRCC-A DC O2, CPAP, BIPAP needs Home O2 Discharge instructions: No Wound(s) right knee: Wound Type: Skin Tear right hip: Wound Type: skin graft donor site right suresh: Wound Type: traumatic wound Dressing Change: Aquacel Extra right thigh: Wound Type: donor site with small open skin tear Dressing Change: Adaptic Therapies Physical Therapy: Eval and Treat Occupational Therapy: Eval and Treat Problem/Diagnosis (1) (HFpEF) heart failure with preserved ejection fraction: Status: Acute Code(s): I50.30 - Unspecified diastolic (congestive) heart failure (2) Open leg wound: Status: Acute Code(s): S81.809A - Unspecified open wound, unspecified lower leg, initial encounter (3) Debility: Status: Acute Code(s): R53.81 - Other malaise (4) Tremulousness: Status: Resolved Code(s): R25.1 - Tremor, unspecified Plan 1. Debility and inability to complete ADLs ? PT/OT ? She was recently discharged from the transitional care unit ? Her family tried to get her placed from home however she became too weak ? This is likely complicated by her history of heart failure as well as bilateral open wounds and lower extremity edema 2. Acute on chronic diastolic CHF/essential HTN/HLD/paroxysmal A-fib ? Continue with Eliquis ? Continue with her home blood pressure medications ? Continue with IV Lasix, she likely has a mild exacerbation as she is not requiring any oxygen but she does have lower extremity edema ? Will monitor her renal function closely 3. Bilateral leg wounds ? She has been seen plastic surgery in the wound care center ? She was given 5 days of doxycycline on 10/26/2024, will continue 4. Hypothyroidism ? Stable ? Continue Synthroid 5. Chronic pain ? She is on gabapentin and oxycodone ? Given her CKD 4, will hold her gabapentin DVT: Eliquis Allergies/Procedures Done in Hospital Allergies cefazolin (From Kefzol) Allergy (Severe, Verified 10/29/24 03:39) hives/difficulty swallowing ibuprofen Allergy (Unknown, Verified 10/29/24 03:39) Rash peanut Allergy (Verified 10/29/24 03:39) Anaphylaxis process peanut, can eat peanuts, not example peanut butter Sulfa (Sulfonamide Antibiotics) Allergy (Verified 10/29/24 03:39) Unknown sulfamethoxazole (From Bactrim) Allergy (Verified 10/29/24 03:39) Other trimethoprim (From Bactrim) Allergy (Verified 10/29/24 03:39) Other Procedures: None Type of Care/Length of Stay Estimated LOS: Convalescent Care Less Than 30 days Type of Care Needed: Skilled Rehab Potential: Good Prognosis: Good Additional Orders/Day of Discharge Day of Discharge: 11/01/24 Dietary and Speech Recommendations Dietitian Recommendations/Changes: Continue with Cardiac - Heart Healthy diet and 1500mL fluid restriction per MD recommendation. Will cancel Mu BID order 2/2 pt request. Pt not interested in ONS use at this time. Will continue to follow, monitor oral intakes and modify nutrition interventions as needed. Discharge Plan Admission Admit Date/Time: 10/29/24 05:34 Attending Provider: Donell Ferrara Primary Care Provider: Lizy Capone Consulting Providers: Russell Todd Discharge Orders/Prescriptions Prescriptions: Continued Mirena 20 mcg/24 hours (7 yrs) 52 mg intrauterine device 1 mcg intrauterine ONCE nitroglycerin 0.4 mg tablet, sublingual 0.4 mg sublingual Q5M PRN (Reason: chest pain) Qty: 30 1RF Rx Instructions: do not exceed 3 doses per episode carvedilol 6.25 mg tablet 6.25 mg PO BID multivitamin Tablet 1 tab PO DAILY Arthritis Pain Compound 3 click [...] PO 2200 30 Days Qty: 15 0RF Eliquis 2.5 mg tablet 2.5 mg PO BID 30 Days Qty: 60 0RF nystatin [Klayesta] 100,000 unit/gram powder topical fluoride (sodium) [Denta 5000 Plus] 1.1 % cream 1 applic PO Q24H cholecalciferol (vitamin D3) 25 mcg (1,000 unit) tablet 50 mcg PO DAILY lacosamide 100 mg tablet 100 mg PO Q12H Gemtesa 75 mg tablet 75 mg PO DAILY doxycycline hyclate 100 mg capsule 100 mg PO BID 5 Days Qty: 10 0RF polyethylene glycol 3350 [Miralax] 17 gram/dose powder 17 g PO DAILY atorvastatin 40 mg tablet 40 mg PO QHS levothyroxine 125 mcg tablet 125 mcg PO DAILY Patient Comments: TAKE 1 TABLET BY MOUTH ONCE DAILY. TAKE ON EMPTY STOMACH. FOR THYROID. calcium acetate(phosphat bind) 667 mg Capsule 667 mg PO TIDCM Qty: 1 0RF sennosides-docusate sodium [Stimulant Laxative Plus] 8.6-50 mg Tablet 2 tab PO BID Qty: 1 0RF Discontinued oxycodone 5 mg Tablet 5 mg PO Q4H PRN PRN (Reason: Pain Score 1-10 Or Pre Pt/Ot) 7 Days Qty: 42 0RF gabapentin 300 mg capsule 300 mg PO TID Referrals / Follow Up: Wound Health [Outside] Lizy Capone MD [Primary Care Provider] - Disposition Disposition (needs filled in before D/C Order can be placed): Shelter Facility 11/01/24 0908 <Electronically signed by Donell Ferrara MD> Cosigner Signature (if applicable): CC: Dr. Russell Todd DO; Dr. Lizy Capone MD ~ [facility] Work Phone: 1(556) 893-740407-29-2025 [facility]07-28-2025 Progress note Author Donell Ferrara [facility] Note Date/Time October 31, 2024 8:27 am [facility] Medical Records Department [address] [place] [address] Progress Note - Hospitalist 10/31/24 0823 MR#: [id number] Acct: [id number] Name: MARI LOPEZ Rep #:[id number] : 1940 84 From: Donell rubin MD PCP: Dr. Lizy Capone MD Status:AD M IN Location: [place] [address] Subjective Subjective Doing well, no issues overnight. Not getting much sleep and would like something different than melatonin tonight Objective Data Objective Data Vital Signs: Vital Signs Temp Pulse Resp BP Pulse Ox O2 Del Method 96.9 F L 84 18 124/71 H 95 Room Air 10/31/24 04:22 10/31/24 04:22 10/31/24 04:22 10/31/24 04:22 10/30/24 22:12 10/31/24 02:35 Oxygen Delivery Method Room Air Weight: 265 lb 3.457 oz Body Mass Index (BMI) 48.4 Intake & Output: Intake and Output for Last 24 Hours 10/30/24 10/31/24 11/01/24 03:59 03:59 03:59 Intake Total 600 / 600 1200 / 1200 120 / 120 Output Total 2200 / 2200 2600 / 2600 400 / 400 Balance -1600 / -1600 -1400 / -1400 -280 / -280 Lab / Micro Data 10/31/24 05:47 10/31/24 05:47 Labs: Laboratory Results - last 24 hr 10/31/24 05:47: WBC 5.2, RBC 2.58 L, Hgb 8.5 L, Hct 27.8 L, MCV 107.8 H, MCH 32.9 H, MCHC 30.6 L, RDW Std Deviation 58.4 H, RDW Coeff of Parris 15.1 H, Plt Count 181, MPV 12.9 H, Immature Gran % (Auto) 0.200, Neut % (Auto) 49.7, Lymph %(Auto) 34.9, [place] % (Auto) 9.8, Eos % (Auto) 4.6, Baso % (Auto) 0.8, Absolute Neuts (auto) 2.6, Absolute Lymphs (auto) 1.82, Nucleated RBC % 0, Sodium 144, Potassium 4.5, Chloride 108, Carbon Dioxide 22.8, Anion Gap 13, BUN 68 H, Creatinine 3.21 H, Estim Creat Clear Calc 16.68 L, Est GFR (MDRD) Non-Af 14 L, BUN/Creatinine Ratio 21.3 H, Glucose 94, Calcium 7.9 Physical Exam Narrative General: Alert, Oriented x3, Cooperative, No apparent distress HEENT: Atraumatic, PERRLA, EOMI, Normocephalic Oral: Moist Mucosa Neck: Supple, No JVD Lungs: Diminished, Normal air movement, No rhonchi, No wheeze, No rales Cardiovascular: Regular rate, Regular Rhythm, Normal S1, Normal S2, No murmurs Abdomen: Soft, Non Tender, Non-Distended, No Hepato-splenomegaly Extremities: Edema, Capillary Refill Less than 3 Seconds Skin: Bilateral leg wounds currently dressed Musculoskeletal: No Tenderness to Palpation of Joints or Extremities Neurological: No focal neurological deficits, moves all extremities Psych/Mental Status: Normal affect, tired Assessment & Plan Assessment/Plan (1) (HFpEF) heart failure with preserved ejection fraction: (2) Open leg wound: (3) Debility: (4) Tremulousness: PLAN: Plan 1. Debility and inability to complete ADLs ? PT/OT ? She was recently discharged from the transitional care unit ? Her family tried to get her placed from home however she became too weak ? This is likely complicated by her history of heart failure as well as bilateral open wounds and lower extremity edema 2. Acute on chronic diastolic CHF/essential HTN/HLD/paroxysmal A-fib ? Continue with Eliquis ? Continue with her home blood pressure medications ? Continue with IV Lasix, she likely has a mild exacerbation as she is not requiring any oxygen but she does have lower extremity edema ? Will monitor her renal function closely 3. Bilateral leg wounds ? She has been seen plastic surgery in the wound care center ? She was given 5 days of doxycycline on 10/26/2024, will continue 4. Hypothyroidism ? Stable ? Continue Synthroid 5. Chronic pain ? She is on gabapentin and oxycodone ? Given her CKD 4, will hold her gabapentin DVT: Eliquis Charges/Coding Visit Charges Inpatient E&M: 75761 Subs Hosp L2 10/31/24826 <Electronically signed by Donell Ferrara MD> Cosigner Signature (if applicable): CC: ~ Signed [facility] Work Phone: [phone]) 614-914607-27-2025 Progress note Author Donell Ferrara [facility] Note Date/Time October 30, 2024 9:18 am [facility] Medical Records Department [address] [place] [address] Progress Note - Hospitalist 10/30/24 09 MR#: [id number] Acct: [id number] Name: MARI LOPEZ Rep #:[id number] : 1940 84 From: Donell rubin MD PCP: Dr. Lizy Capone MD Status:AD M IN Location: [place] [address]- Subjective Subjective Doing well, no issues overnight Objective Data Objective Data Vital Signs: Vital Signs Temp Pulse Resp BP Pulse Ox O2 Del Method 98 F 96 17 93/58 L 94 Room Air 10/30/24 08:57 10/30/24 08:57 10/30/24 08:57 10/30/24 08:57 10/30/24 08:57 10/30/24 08:57 Oxygen Delivery Method Room Air Weight: 265 lb 3.457 oz Body Mass Index (BMI) 48.4 Intake & Output: Intake and Output for Last 24 Hours 10/29/24 10/30/24 10/31/24 03:59 03:59 03:59 Intake Total 600 / 600 Output Total 2200 / 2200 250 / 250 Balance -1600 / -1600 -250 / -250 Lab / Micro Data 10/30/24 05:17 10/30/24 05:17 Labs: Laboratory Results - last 24 hr 10/30/24 05:17: WBC 4.7, RBC 2.64 L, Hgb 8.7 L, Hct 29.4 L, MCV 111.4 H, MCH 33.0 H, MCHC 29.6 L, RDW Std Deviation 60.9 H, RDW Coeff of Parris 15.2 H, Plt Count 184, MPV 13.1 H, Immature Gran % (Auto) 0.200, Neut % (Auto) 43.6 L, Lymph% (Auto) 39.6, [place] % (Auto) 10.2 H, Eos % (Auto) 5.5 H, Baso % (Auto) 0.9, Absolute Neuts (auto) 2.1, Absolute Lymphs (auto) 1.86, Nucleated RBC % 0, Sodium 140, Potassium 4.4, Chloride 107, Carbon Dioxide 19.6 L, Anion Gap 14, BUN 67 H, Creatinine 3.23 H, Estim Creat Clear Calc 16.57 L, Est GFR (MDRD) Non-Af 14 L, BUN/Creatinine Ratio 20.6 H, Glucose 89, Calcium 7.7 Physical Exam Narrative General: Alert, Oriented x3, Cooperative, No apparent distress HEENT: Atraumatic, PERRLA, EOMI, Normocephalic Oral: Moist Mucosa Neck: Supple, No JVD Lungs: Diminished, Normal air movement, No rhonchi, No wheeze, No rales Cardiovascular: Regular rate, Regular Rhythm, Normal S1, Normal S2, No murmurs Abdomen: Soft, Non Tender, Non-Distended, No Hepato-splenomegaly Extremities: Edema, Capillary Refill Less than 3 Seconds Skin: Bilateral leg wounds currently dressed Musculoskeletal: No Tenderness to Palpation of Joints or Extremities Neurological: No focal neurological deficits, moves all extremities Psych/Mental Status: Flat Assessment & Plan Assessment/Plan (1) (HFpEF) heart failure with preserved ejection fraction: (2) Open leg wound: (3) Debility: (4) Tremulousness: PLAN: Plan 1. Debility and inability to complete ADLs ? PT/OT ? She was recently discharged from the transitional care unit ? Plan we will try to get her placed from home however she became too weak ? This is likely complicated by her history of heart failure as well as bilateral open wounds and lower extremity edema 2. Acute on chronic diastolic CHF/essential HTN/HLD/paroxysmal A-fib ? Continue with Eliquis ? Continue with her home blood pressure medications ? Continue with IV Lasix, she likely has a mild exacerbation as she is not requiring any oxygen but she does have lower extremity edema ? Will monitor her renal function closely 3. Bilateral leg wounds ? She has been seen plastic surgery in the wound care center ? She was given 5 days of doxycycline on 10/26/2024, will continue 4. Hypothyroidism ? Stable ? Continue Synthroid 5. Chronic pain ? She is on gabapentin and oxycodone ? Given her CKD 4, will hold her gabapentin DVT: Eliquis Charges/Coding Visit Charges Inpatient E&M: 51409 Subs Hosp L2 10/30/24 0918 <Electronically signed by Donell Ferrara MD> Cosigner Signature (if applicable): CC: ~ Signed [facility] Work Phone: [phone]) 631-741107-26-2025 Discharge summary Author Anthony Taylor [facility] Note Date/Time October 29, 2024 6:02 am [facility] Medical Records Department [address] [place] [address] Emergency Department Summary 10/29/24 MR#: [id number] Acct: [id number] Name: MARI LOPEZ Rep #:[id number] : 1940 84 From: Anthony Taylor DO PCP: Dr. Lizy Capone MD Status:AD M IN Location: [address] History of Present Illness Chief Complaint: Weakness Informant: patient and friend Narrative Narrative: Patient is an 84-year-old female with past medical history of chronic anemia hypertension hypothyroidism hyperlipidemia and chronic atrial fibrillation currently on Eliquis. She states that she has had generalized weakness for the past2 to 3 days. The patient has a home health aide and a friend to help take care of her and they confirmed that over the last 2 days she has not been able to getup and that she simply been laying in bed. The patient states she is unable to care for herself and is seeking treatment for potential placement in [facility]. She states she still been taking her medications as directed but because of the generalized weakness keeping her from being able to ambulate and care forherself she was brought in for evaluation [facility] Medical History VRE (vancomycin resistant enterococcus) [...] 06/27/22 Unknown Rx tablet pain #30 tabs atorvastatin 40 mg tablet 40 mg PO [...] 1 tab PO DAILY Supplement 09/28/24 History Arthritis Pain Compound 3 click [...] (vitamin D3) 25 50 mcg PO DAILY Unknown History mcg (1,000 unit) tablet doxycycline hyclate 100 mg capsule 100 mg PO BID 5 day s #10 caps 10/26/24 Unknown Rx fluoride (sodium) 1.1 % dental 1 applic PO Q24H Unknown History cream (Denta 5000 Plus) gabapentin 300 mg capsule 300 mg PO TID 10/26/24 Unkno wn History lacosamide 100 mg tablet 100 mg PO Q12H 10/26/24 Unkn own History nystatin 100,000 unit/gram topical topical 10/26/24 Un known History powder (Klayesta) vibegron 75 mg tablet (Gemtesa) 75 mg PO DAILY 5 Unknown History polyethylene glycol 3350 17 17 g PO DAILY 10/29/24 Unk nown History gram/dose oral powder (Miralax) Allergy/AdvReac Type Severity Reaction Status Date / Time cefazolin (From Kefzol) Allergy Severe hives/difficulty Verified 10/29/24 03:39 swallowing ibuprofen Allergy Unknown Rash Verified 10/29/24 03:39 peanut Allergy Anaphylaxis Verified 10/29/24 03:39 Sulfa (Sulfonamide Allergy Unknown Verified 10/29/24 03:39 Antibiotics) sulfamethoxazole (From Allergy Other Verified 10/29/24 03:39 Bactrim) trimethoprim (From Bactrim) Allergy Other Verified 10/29/24 03:39 Family History Mother Cancer uterine Father No [...] ROS ROS ED Constitutional Constitutional ED: Denies chills or fever(s) Eyes Eyes: Denies change in vision ENT ENT ED: Denies sore throat Cardiovascular Cardiovascular: Reports palpitations and racing heartbeat; Denies chest pain Respiratory/Chest Respiratory/Chest: Denies cough or dyspnea Gastrointestinal Gastrointestinal: Denies abdominal pain, diarrhea, nausea or vomiting Genitourinary Genitourinary ED: Reports dysuria Musculoskeletal Musculoskeletal: Denies myalgias Integumentary Reports other; Denies rash Neurologic Neurologic: Reports weakness; Denies headache(s) Hematologic/Lymphatic Hematologic/Lymphatic: Reports easy bleeding and easy bruising EXAM Physical Exam Const Vital Signs: 10/29/24 03:40 10/29/24 03:40 10/29/24 05:09 Temperature 97.5 F L 97.8 F Temperature Source Oral Pulse Rate 124 H 108 H Respiratory Rate 18 18 Respiratory Effort Normal Non-Labored Respiratory Pattern Normal Blood Pressure 102/86 H 98/82 H Blood Pressure Mean 91 87 Pulse Ox 100 96 Oxygen Delivery Method Room Air 10/29/24 05:11 Temperature Temperature Source Pulse Rate 108 H Respiratory Rate 18 Respiratory Effort Respiratory Pattern Blood Pressure 98/82 H Blood Pressure Mean 87 Pulse Ox 96 Oxygen Delivery Method Room Air Positive well nourished, well developed and obese General Appearance ED: well developed Nutritional Appearance: obese HEENT HEENT Narrative: Normocephalic atraumatic No tongue or lip swelling no oral lesions no airway edema or compromise Eyes PERRL and EOMs intact bilaterally General Eye ED: Negative for scleral icterus Neck supple Neck Narrative: No nuchal rigidity or meningeal signs Chest Wall palpation of chest normal Resp normal respiratory effort and clear to auscultation bilaterally Resp Narrative: Breath sounds are diminished throughout but overall clear to auscultation without nasal flaring retractions tachypnea or accessory muscle use Cardio Rate: other Other Details: Irregularly irregular rhythm with slightly tachycardic rate consistent with history of chronic atrial fibrillation GI normal to inspection, nondistended, normoactive bowel sounds, non-tender, non-distended and no masses GI Narrative: No voluntary guarding or rigidity or pulsatile mass Auscultation: normoactive bowel sounds Palpation: soft Extremity Extremity Narrative: Patient has diffuse swelling to the bilateral lower legs consistent with historyof lymphedema No obvious bony deformity or joint effusion All compartments are soft and compressible going against compartment syndrome Neuro oriented x3, CN's II-XII intact bilaterally and no sensory deficits noted Sensorium / Orientation: alert Psych mental status grossly normal Skin Skin Narrative: Patient has a recent laceration to her right lower leg that is clean dry and intact without findings concerning for cellulitis. There is an abrasion to the lateral aspect of the left leg without findings of secondary infection Patient has changes to the right upper thigh consistent with recent skin graft also without findings of secondary infection MDM MDM MDM Narrative Medical decision making narrative: Patient arrived to the ER in atrial fibrillation but has a history of this and is on Eliquis. She reported generalized weakness over the last 2 days keeping her from ambulating and the inability perform her activities of daily living. The patient is requesting potential placement in a [facility] as she is not able to care for herself at this time. Secondary to this basic blood work was obtained to check for worsening anemia kidney disease urinary tract infection orpneumonia. Blood work showed hemoglobin of 9.4 which is near baseline. Her creatinine is 3.16 which is slightly above her baseline. Urine sample showed nosign of acute infection and chest x-ray revealed no acute lung pathology such aspneumonia. Patient also has multiple wounds but they are not showing findings of systemic infection/cellulitis. Therefore at this time patient has chronic lab abnormalities but they are near her baseline without obvious secondary infection. However because of her generalized weakness and inability to ambulate I do not feel she is safe for home. I do feel she would benefit from PT OT evaluation and m[facility]p placement. Secondary to this I discussed the case with the hospitalist. He evaluated the patient in the ER and does agree toaccept the patient for further care. History & Record Review Discussion w/independent historian: Patient and Friend Lab Data Attestation: I reviewed the patient's lab results. Labs: Laboratory Results - last 24 hr 10/29/24 10/29/24 03:51 04:14 WBC 5.8 RBC 2.94 L Hgb 9.4 L Hct 31.4 L MCV 106.8 H MCH 32.0 MCHC 29.9 L RDW Std Deviation 57.2 H RDW Coeff of Parris 15.0 H Plt Count 212 MPV 13.6 H Immature Gran % (Auto) 0.200 Neut % (Auto) 53.2 Lymph % (Auto) 30.1 [place] % (Auto) 9.8 Eos % (Auto) 6.0 H Baso % (Auto) 0.7 Absolute Neuts (auto) 3.1 Absolute Lymphs (auto) 1.74 Nucleated RBC % 0 Sodium 142 Potassium 4.4 Chloride 106 Carbon Dioxide 23.5 Anion Gap 13 BUN 67 H Creatinine 3.16 H Estim Creat Clear Calc 15.60 L Est GFR (MDRD) Non-Af 14 L BUN/Creatinine Ratio 21.3 H Glucose 98 Calcium 8.3 Magnesium 2.3 H TSH 4.310 H Urine Color Straw Urine Clarity Clear Urine pH 6.0 Ur Specific [place] 1.010 Urine Protein 15 H Urine Glucose (UA) Normal Urine Ketones Negative Urine Occult Blood Negative Urine Nitrite Negative Urine Bilirubin Negative Urine Urobilinogen Normal Ur Leukocyte Esterase 25 H Urine RBC 0 SEEN Urine WBC 5-10 SEEN Ur Squamous Epith Cells 0-5 SEEN Urine Bacteria 0 SEEN Urine Mucus 0 SEEN Radiography Diagnostic Testing: Clinical Impression(s) from Imaging Studies Chest X-Ray 10/29/24 04:20 IMPRESSION: No definite acute chest findings. Possible very mild central interstitial edema. Advise correlation. Reading Location: [place] [address] Chest x-ray as interpreted by the emergency medicine physician reveals findings consistent with mild vascular congestion but no acute infiltrate pleural effusion or pneumothorax Management Discussion w/another healthcare provider: Hospitalist Discharge Plan Triage Chief Complaint: Weakness ED Provider: Anthony Taylor Dx/Rx/DC Orders Clinical Impression: Generalized weakness, Chronic atrial fibrillation, Current use of long term care phlebotomist anticoagulation, Lymphedema, Hypothyroidism, Inability to walk, Chronic kidney disease, Anemia Prescriptions: No Action Mirena 20 mcg/24 hours (7 yrs) 52 mg intrauterine device 1 mcg intrauterine ONCE nitroglycerin 0.4 mg tablet, sublingual 0.4 mg sublingual Q5M PRN (Reason: chest pain) Qty: 30 1RF Rx Instructions: do not exceed 3 doses per episode carvedilol 6.25 mg tablet 6.25 mg PO BID multivitamin Tablet 1 tab PO DAILY Arthritis Pain Compound 3 click [...] (sodium) [Denta 5000 Plus] 1.1 % cream 1 applic PO Q24H cholecalciferol (vitamin D3) 25 mcg (1,000 unit) tablet 50 mcg PO DAILY lacosamide 100 mg tablet 100 mg PO Q12H Gemtesa 75 mg tablet 75 mg PO DAILY doxycycline hyclate 100 mg capsule 100 mg PO BID 5 Days Qty: 10 0RF polyethylene glycol 3350 [Miralax] 17 gram/dose powder 17 g PO DAILY atorvastatin 40 mg tablet 40 mg PO [...] 0RF Primary Care Provider: Lizy Capone Referrals: Lizy Capone MD [Primary Care Provider] - Print Language: Uzbek Disposition Disposition: Acute Care Hospital [facility] What to do if you have Problems For any increased pain, shortness of breath, bleeding, nausea or vomiting, chestpain, or any unexpected problems, contact your Primary Care Provider. Call [facility] ([phone]) or report to the closest Emergency Room. Call 911 if necessary. 10/29/24 0602 <Electronically signed by Anthony Taylor DO> Cosigner Signature (if applicable): CC: Dr. Lizy Capone MD ~ Signed [facility] Work Phone: [phone]) 520-655907-26-2025 History and physical note Author Russell Todd [facility] Note Date/Time October 29, 2024 5:59 am [facility] Medical Records Department [address] [place] [address] H&P Exam - Hospitalist 10/29/24 0545 MR#: [id number] Acct: [id number] Name: MARI LOPEZ Rep #:[id number] : 1940 84 From: Russell Todd DO PCP: Dr. Lizy Capone MD Status:RE G ER Location: ED HPI - General General Date of Service: 10/29/24 Chief Complaint: Weakness HPI Narrative MARI LOPEZ, is a 84 F who presents with weakness. Patient was admitted earlier this month discharged to transitional care unit where she was and was able to walk out on her own accord. Had been doing well but has progressively gotten weaker at home and over the past 2 days was essentially bedbound. Patient was reluctant but finally agreed to going to a prison facility and they were attempting to do so from home but with her being bedridden for 2 days was not feasible so patient was sent to the emergency room. In the emergency room, patient's creatinine was noted to be 3.16 chest x-ray was concerning for pulmonary vascular congestion. Heart rate did get up and she did receive a doseof her carvedilol. Patient has lower extremity wounds that have opened up and noted that her legs are seeping fluid. She states that her weight has gone up roughly 10 pounds. She says that she has not had a bowel movement in 6 days. [facility] Medical History VRE (vancomycin resistant enterococcus) [...] 06/27/22 Unknown Rx tablet pain #30 tabs atorvastatin 40 mg tablet 40 mg PO [...] 1 tab PO DAILY Supplement 09/28/24 History Arthritis Pain Compound 3 click [...] (vitamin D3) 25 50 mcg PO DAILY Unknown History mcg (1,000 unit) tablet doxycycline hyclate 100 mg capsule 100 mg PO BID 5 day s #10 caps 10/26/24 Unknown Rx fluoride (sodium) 1.1 % dental 1 applic PO Q24H Unknown History cream (Denta 5000 Plus) gabapentin 300 mg capsule 300 mg PO TID 10/26/24 Unkno wn History lacosamide 100 mg tablet 100 mg PO Q12H 10/26/24 Unkn own History nystatin 100,000 unit/gram topical topical 10/26/24 Un known History powder (Klayesta) vibegron 75 mg tablet (Gemtesa) 75 mg PO DAILY 5 Unknown History polyethylene glycol 3350 17 17 g PO DAILY 10/29/24 Unk nown History gram/dose oral powder (Miralax) Allergy/AdvReac Type Severity Reaction Status Date / Time cefazolin (From Kefzol) Allergy Severe hives/difficulty Verified 10/29/24 03:39 swallowing ibuprofen Allergy Unknown Rash Verified 10/29/24 03:39 peanut Allergy Anaphylaxis Verified 10/29/24 03:39 Sulfa (Sulfonamide Allergy Unknown Verified 10/29/24 03:39 Antibiotics) sulfamethoxazole (From Allergy Other Verified 10/29/24 03:39 Bactrim) trimethoprim (From Bactrim) Allergy Other Verified 10/29/24 03:39 Family History Mother Cancer uterine Father No [...] Number of servings: 3 ROS ROS Narrative Has been having tremulousness again. All review of systems were negative exceptas mentioned above in the history of present illness and the other review of systems. Vital Signs Vital Signs Vital Signs: 10/29/24 03:40 10/29/24 03:40 10/29/24 05:09 Temperature 36.4 C L 36.6 C Temperature Source Oral Pulse Rate 124 H 108 H Respiratory Rate 18 18 Respiratory Effort Normal Non-Labored Respiratory Pattern Normal Blood Pressure 102/86 H 98/82 H Blood Pressure Mean 91 87 Pulse Ox 100 96 Oxygen Delivery Method Room Air 10/29/24 05:11 Temperature Temperature Source Pulse Rate 108 H Respiratory Rate 18 Respiratory Effort Respiratory Pattern Blood Pressure 98/82 H Blood Pressure Mean 87 Pulse Ox 96 Oxygen Delivery Method Room Air Weight Weight: 104.8 kg Body Mass Index (BMI) 42.3 Physical Exam Narrative POCUS: Indication is for heart failure. Limited no phased-array probe on and also limited due to body habitus and respirations. IVC was visualized did not appear overly enlarged and did not appear to be collapsible with respiration so once again was limited. Const alert and no apparent distress Constitutional Narrative: On room air. No respiratory distress. No conversational dyspnea. Patient has very good recollection of the events out of curried over the past several months. She does recall be seeing her during her hospitalization from September to October. General Appearance: cooperative HEENT normocephalic Eyes Eyes Narrative: No icterus Neck no lymphadenopathy Neck Narrative: No thyromegaly Resp normal respiratory effort and no retractions Cardio S1 normal heart sound and S2 normal heart sound Cardio Narrative: Tachycardic GI GI Narrative: Obese. Soft. Nondistended nontender. No hepatosplenomegaly Extremity Extremity Narrative: Bilateral tight lower extremity edema. With some diffuse serous drainage. Skin Skin Narrative: Opened up lesion on right medial calf. No surrounding erythema. Anterior stitch. Skin graft site on right anterior thigh appears grossly normal. Of anycellulitis. Left lateral calf patient has a lesion that is healed without any surrounding erythema. Neuro moves all extremities Sensorium / Orientation: awake and alert Psych affect normal Results Lab / Micro Data Attestation: I reviewed the patient's lab results. 10/29/24 03:51 10/29/24 03:51 Labs: Laboratory Results - last 24 hr 10/29/24 03:51: WBC 5.8, RBC 2.94 L, Hgb 9.4 L, Hct 31.4 L, MCV 106.8 H, MCH 32.0, MCHC 29.9 L, RDW Std Deviation 57.2 H, RDW Coeff of Parris 15.0 H, Plt Count 212, MPV 13.6 H, Immature Gran % (Auto) 0.200, Neut % (Auto) 53.2, Lymph % (Auto) 30.1, [place] % (Auto) 9.8, Eos % (Auto) 6.0 H, Baso % (Auto) 0.7, Absolute Neuts (auto) 3.1, Absolute Lymphs (auto) 1.74, Nucleated RBC % 0, Sodium 142, Potassium 4.4, Chloride 106, Carbon Dioxide 23.5, Anion Gap 13, BUN 67 H, Creatinine 3.16 H, Estim Creat Clear Calc 15.60 L, Est GFR (MDRD) Non-Af 14 L, BUN/Creatinine Ratio 21.3 H, Glucose 98, Calcium 8.3, Magnesium 2.3 H, TSH 4.310 H 10/29/24 04:14: Urine Color Straw, Urine Clarity Clear, Urine pH 6.0, Ur Specific [place] 1.010, Urine Protein 15 H, Urine Glucose (UA) Normal, Urine Ketones Negative, Urine Occult Blood Negative, Urine Nitrite Negative, Urine Bilirubin Negative, Urine Urobilinogen Normal, Ur Leukocyte Esterase 25 H, UrineRBC 0 SEEN, Urine WBC 5-10 SEEN, Ur Squamous Epith Cells 0-5 SEEN, Urine Bacteria 0 SEEN, Urine Mucus 0 SEEN Imaging Radiology Impression Chest X-Ray 10/29/24 04:20 IMPRESSION: No definite acute chest findings. Possible very mild central interstitial edema. Advise correlation. Reading Location: [place] [address] Assessment & Plan Assessment/Plan (1) (HFpEF) heart failure with preserved ejection fraction: PLAN: Chest x-ray reviewed and shows some pulmonary vascular congestion as well as patient does have marked swelling with serous drainage in her lower extremities. Patient has been taking Lasix at home but has still put on 10 pounds (though the weight here shows that her weight is down roughly 19 kg sinceJuly 23--I think this is innaccurate as losing 20 kg seems highly doubtful). Will start IV furosemide. Fluid restrict. Patient had echocardiogram from May 2024 where she had an EF of 55% (2) Open leg wound: PLAN: Complicated by her lower extremity edema No evidence of any cellulitis at this time Consult wound care for routine wound management. Follow-up with Dr. Lomax as outpt. (3) Debility: PLAN: Patient was already in the works of going to [facility] from home. Will have PT OT evaluate and treat. Case management to assist on disposition. (4) Tremulousness: PLAN: Very subtle currently compared to how much she was having last time. It is all that is due to the gabapentin that she is taking. She was on 300 3-timesa day decreased to 100 3 times daily she was discharged and discontinue it altogether and monitor. I am concerned that not clearing appropriately given her CKD, despite the reduced dose. PLAN: Plan Chronic medical conditions * CKD 4: Creatinine has been variable over the past month. Hopefully with diuresis that will help with perfusion of her kidneys. * Obesity class III: Complicates care and recovery * Paroxysmal atrial fibrillation: Continue carvedilol and apixaban * Hypothyroidism: Continue levothyroxine. TSH 4.31. Check free T4. VTE prophylaxis: Not indicated as patient is already anticoagulated Charges/Coding Visit Charges Inpatient E&M: 31194 Init Hosp L3 10/29/24 0559 <Electronically signed by Russell Todd DO> Cosigner Signature (if applicable): CC: Dr. Russell Todd DO; Dr. Lizy Capone MD~ Signed [facility] Work Phone: 1(299) 933-141107-26-2025 Radiology Diagnostic study [facility]07-25-2025 Telephone encounter Note* Telephone Encounter - Dede Reynolds RN - 10/28/2024 4:21 PM EDT Shruthi- [facility]- phoned to report she spoke with caregiver, who informed Shruthi pt slept all night and has slept all day today. Has not been out of bed today. When Shruthi asked caregiver if pt has gotten up to use the bathroom, caregiver states pt is in a diaper. Shruthi states caregiver has not changed diaper today. Caregiver reports pt is not eating, not drinking, and is confused. Advised to ER for change in mental status. Shruthi agreeable and will call caregiver. [facility]07-25-2025 Telephone encounter Note* Telephone Encounter - Mulugeta Jennings APRN.CNP - 10/28/2024 7:03 AM EDT Briana noted. Will hold for Dr. Capone for his review. Mulugeta Jennings APRN.CNP [facility] Work Phone: [phone]) 964-913407-24-2025 Telephone encounter Note* Telephone Encounter - Olga Dillard RN - 10/27/2024 3:32 PM EDT Deanne CRAIG calling from [facility] to report plan of care for patient and OT will visit patient one time aweek for four weeks. OT will work with patient on ADL's and functioning. Deanne reports that patient has an additional wound to leg. Notified that nursing has new orders for wounds. Friend (Cayla) was concerned for cognition. Patient is alert and oriented but foggy at times. Deanne reports that patient is not getting a round well. Confined to a w/c and safety is an issue forfalls. Reports that patient is aware and has had a talk with friend who is not able to take care ofher. Patient is to be looking into a private Aide or AL placement. SW with [facility] is currently looking into w/c transportation to take her to wound center appt on Thursday. Recommended if patient's condition continues to deteriorate she should go back to ER. Patient's friend is keeping a close eye on her for this. Olga Dillard RN [facility]07-24-2025 Telephone encounter Note* Telephone Encounter - Analia Gracia RN - 10/27/2024 2:55 PM EDT Pt called in and reports she just saw Dr Capone on 10/24/24. She states she is in a wheelchair and isn't able to walk. Pt is requesting a referral to Palliative Care. She states she heard that if you have Palliative Care and have a medical appointment they will take you to them. Please call and advise Pt. Analia Gracia RN [facility]07-24-2025 Telephone encounter Note* Telephone Encounter - Pamela Shafer RN - 10/27/2024 9:17 AM EDT Kamille with [facility] notified. Pamela Shafer RN [facility]07-24-2025 Miscellaneous Notes* Telephone Encounter - Pamela Shafer RN - 10/27/2024 9:17 AM EDT Kamille with [facility] notified. Pamela Shafer RN * Telephone Encounter - Trever Bertrand DO - 10/27/2024 9:13 AM EDT Staff, Please reach out to the [facility] contact to verbally okay the patients recommended wound care needs Verbal order , yes!! Thanks , Trever Bertrand DO * Telephone Encounter - Olga Dillard RN - 10/27/2024 8:55 AM EDT Kamille with [facility] HH calls to request orders for wound [...] performed until [facility]. They plan to see patient sometime this morning so need orders as soon as possible. Please review and advise, Olga Dillard RN documented [facility] Telephone encounter Note * Telephone Encounter - Trever Bertrand DO - 10/27/2024 9:13 AM EDT Staff, Please reach out to the [facility] contact to verbally okay the patients recommended wound care needs Verbal order , yes!! Thanks , Trever Bertrand DO [facility] Work Phone: 1(116) 254-152807-24-2025 Telephone encounter Note* Telephone Encounter - Olga Dillard RN - 10/27/2024 8:55 AM EDT Kamille with [facility] HH calls to request orders for wound [...] performed until patient is [facility]. They plan to see patient sometime this morning so need orders as soon as possible. Please review and advise, Olga Dillard RN [facility]07-22-2025 Progress note Author Gonzalo Lomax [facility] Note Date/Time October 25, 2024 9:38 am [facility] Medical Records Department [address] [place] [address] Progress Note 10/25/24 0935 MR#: [id number] Acct: [id number] Name: MARI LOPEZ Rep #:[id number] : 1940 84 From: Gonzalo Lomax MD PCP: BROOKLYN Aguillon Status:REG R CR Location: WC Subjective Subjective No fevers chills or drainage. Discussed her pump for lower extremities and okayto use for her lymphedema Objective Data Objective Data Vital Signs: Vital Signs Temp Pulse Resp BP O2 Del Method 98.5 F 104 H 18 123/74 H Room Air 10/24/24 10:10/24/24 10:10/24/24 10:10/24/24 10:10/24/24 10:01 Oxygen Delivery Method Room Air Physical Exam Narrative Skin graft donor site with small excoriation. Recommended Neosporin and a Band- Aid (excoriation is secondary to the episodic swelling in the lower extremity and should improve with the edema pump). Right leg skin graft completely healed. Assessment & Plan Assessment/Plan (1) S/P flap graft: PLAN: Right leg healed Right thigh with small excoriation on the skin graft donor site secondary to thenew skin that formed and the pressure from the episodic swelling. I think this will get better with Neosporin and a Band-Aid daily and better improvement of lower extremity edema. She will return to clinic as needed if this does not heal quickly. Plan to follow-up as needed Charges/Coding Procedures Integumentary 111xxx-113xx: 63226 Global Visit 10/25/24 0938 <Electronically signed by Gonzalo Lomax MD> Gonzalo Lomax MD Cosigner Signature (if applicable): CC: ~ Signed [facility] Work Phone: [phone]) 775-835407-21-2025 Telephone encounter Note* Telephone Encounter - Lizy Capone MD - 10/24/2024 3:28 PM EDT Noted Seen in office today Lizy Capone MD [facility]07-21-2025 Miscellaneous Notes* Telephone Encounter - Lizy Capone MD - 10/24/2024 3:28 PM EDT Noted Seen in office today Lizy Capone MD * Telephone Encounter - Lora Najera RN - 10/21/2024 12:45 PM EDT Lora from [facility] calls and states that patient was restarted for prison services and patient will be seen 1 [...] Thursday10/24/2024. Lora Najera RN documented in this encounterL[facility]07-[facility]-20[facility] History of Present illness Narrative* Lizy Capone MD - 10/24/2024 2:00 PM EDT Transitional Care Management TCM Eligibility Documentation The [...] 7 Day TCM Pt was admitted to [facility] on 09/28/24, following a fall, for lower extremity pain, and was discharged on 10/04/24 to TCU with debility. She was sent back down to ER on 10/12/24 for chest pains. Discharged home 10/20/24 with diagnosis of chronic renal failure, stage 4. She was discharged home with her friend, Alex. Follows with Cardio, environmental project manager, urologist, going to wound center, neurologist, ortho. Going to wound center for wound on her leg. Had graft done. Still having significant pain at the donor site inher right proximal thigh. Using oxycodone 5 mg [...] at home > 90%. -Pt discharged from [facility] on 10/20/24. -Admitted for: Chronic renal failure, stage 4 Below copied from [employer]: History of Present Illness Chief Complaint: Chest [...] inform me that Dr. Jackson is her director of religious life. She is on an anticoagulant. Patient did [...] medical history hospitalized for encephalopathy 2/2 acute kidneyinjury, hyperkalemia, E. Coli UTI, metabolic acidosis, tremor, [...] medical history hospitalized for encephalopathy 2/2 acute kidneyinjury, hyperkalemia, E. Coli UTI, metabolic acidosis, tremor, [...] Past Histories independently gathered by the clinical manager technical support and the remaining scribed note accurately describes my personal service to the patient. Lizy Capone MD The documentation for this note was completed by Alex Lackey MA acting as scribe for Lizy Capone MD. October 24, 2024 2:06 PM. Alex Lackey MA documented in this encounterLima [facility] Hospital07-21-2025 Hospital Discharge instructionsAdditional Instructions Monitor for signs of infection. Take all of your antibiotics. Keep your appointment with the wound clinic on Thursday with Dr. Lomax. Sutures need to be removed in 10 to 14 days. Continue the wet-to-dry dressings twice a day. Return back to the ED if symptoms change or worsen. No soaking in the bathtub, hot tubs, lakes, hernandez, oceans until fully.[facility] Work Phone: 1(953) 665-893607-21-2025 NoteHNO ID: [id number] Author: LIZY CAPONE MD Service: ? Author [...] 7 Day TCM Pt was admitted to [facility] on 09/28/24, following a fall, for lower extremity pain, and was discharged on 10/04/24 to TCU with debility. She was sent back down to ER on 10/12/24 for chest pains. Discharged home 10/20/24 with diagnosis of chronic renal failure, stage 4. She was discharged home with her friend, Alex. Follows with Cardio, environmental project manager, urologist, going to wound center, neurologist, ortho. [...] at home > 90%. -Pt discharged from [facility] on 10/20/24. -Admitted for: Chronic renal failure, stage 4 Below copied from [employer]: History of Present Illness Chief Complaint: Chest [...] inform me that Dr. Jackson is her director of religious life. She is on an anticoagulant. Patient did [...] Vimpat 100mg bid. Hypothyro (more content not included)...[facility]07-18-2025 NoteHNO ID: [id number] Author: ALEX LACKEY MA Service: ? Author Type: [employer] Professional Type: Progress Notes Filed: 10/21/2024 13:50 Note Text: TRANSITION CARE MANAGEMENT (TCM) INITIAL CONTACT [employer] Outreach Provider Action/FYI: 7 Day TCM Initial contact with patient post discharge, spoke to patient 10/21/24. Patient identified by name and . TRANSITION CARE MANAGEMENT INITIAL OUTREACH DOCUMENTATION: 10/21/2024 Date of Outreach: Outreach Attempt 1: Contact Made Date of Discharge 10/20/2024 SUMMARY: -Pt discharged from [facility] on 10/20/24. -Admitted for: Chronic renal failure, stage 4 Below copied from [employer]: History of Present Illness Chief Complaint: Chest [...] inform me that Dr. Jackson is her director of religious life. She is on an anticoagulant. Patient did [...] reschedule accordingly. MEDICATIONS: Many (more content not included)...[facility]07-18-2025 History of Present illness Narrative* Alex Lackey MA - 10/21/2024 1:04 PM EDT TRANSITION CARE MANAGEMENT (TCM) INITIAL CONTACT [employer] Outreach Provider Action/FYI: 7 Day TCM Initial contact with patient post discharge, spoke to patient 10/21/24. Patient identified by name and . TRANSITION CARE MANAGEMENT INITIAL OUTREACH DOCUMENTATION: 10/21/2024 Date of Outreach: Outreach Attempt 1: Contact Made Date of Discharge 10/20/2024 SUMMARY: -Pt discharged from [facility] on 10/20/24. -Admitted for: Chronic renal failure, stage 4 Below copied from [employer]: History of Present Illness Chief Complaint: Chest [...] inform me that Dr. Jackson is her director of religious life. She is on an anticoagulant. Patient did [...] medical history hospitalized for encephalopathy 2/2 acute kidneyinjury, hyperkalemia, E. Coli UTI, metabolic acidosis, tremor, [...] medical history hospitalized for encephalopathy 2/2 acute kidneyinjury, hyperkalemia, E. Coli UTI, metabolic acidosis, tremor, [...] for provider to review documented in this encounterL[facility]07-[facility]25 Telephone encounter Note * Telephone Encounter - Lora Najera RN - 10/21/2024 12:45 PM EDT Lora from [facility] calls and states that patient was restarted for prison services and patient will be seen 1 [...] Dr. Capone on Thursday10/24/2024. Lora Najera RN [facility]07-18-2025 NotePatient Outreach (FAMPWS) MARI LOPEZ ([id number]) 1940 F Date Time Provider Department 10/21/24 ALEX LACKEY During your visit today, we recorded the following information about you: Alex Lackey MA 10/21/2024 1:50 PM Signed TRANSITION CARE MANAGEMENT (TCM) INITIAL CONTACT [employer] Outreach Provider Action/FYI: 7 Day TCM Initial contact with patient post discharge, spoke to patient 7/18/25. Patient identified by name and . TRANSITION CARE MANAGEMENT INITIAL OUTREACH DOCUMENTATION: 10/21/2024 Date of Outreach: Outreach Attempt 1: Contact Made Date of Discharge 10/20/2024 SUMMARY: -Pt discharged from [facility] on 10/20/24. -Admitted for: Chronic renal failure, stage 4 Below copied from My[employer]: History of Present Illness Chief Complaint: Chest [...] inform me that Dr. Jackson is her director of religious life. She is on an anticoagulant. Patient did [...] up appointment with your PCP? Appointment on 7/ (more content not included)...[facility] 10-20-2024 Telephone encounter Note* Telephone Encounter - Analia Gracia RN - 10/20/2024 2:18 PM EDT Natalia [facility] called and is notified of providers message. She voices understanding. Analia Gracia RN [facility]07-17-2025 Miscellaneous Notes* Telephone Encounter - Analia Gracia RN - 10/20/2024 2:18 PM EDT Natalia [facility] called and is notified of providers message. She voices understanding. Analia Gracia RN * Telephone Encounter - Lizy Capone MD - 10/20/2024 2:09 PM EDT I will follow for [facility] Lizy Capone MD * Telephone Encounter - Analia Gracia RN - 10/20/2024 12:06 PM EDT [facility] called in and reports Pt will be discharged form TCU tomorrow with SN/PT/OT/ST. Pt was admitted for encephalopathy, Chronic Renal Disease, and R lower extremity and thigh wound She is asking if provider will follow. Please call and advise. Analia Gracia RN [facility] Telephone encounter Note * Telephone Encounter - Lizy Capone MD - 10/20/2024 2:09 PM EDT I will follow for [facility] Lizy Capone MD [facility]07-17-2025 Telephone encounter Note* Telephone Encounter - Analia Gracia RN - 10/20/2024 12:06 PM EDT Natalia [facility] called in and reports Pt will be discharged form TCU tomorrow with SN/PT/OT/ST. Pt was admitted for encephalopathy, Chronic Renal Disease, and R lower extremity and thigh wound She is asking if provider will follow. Please call and advise. Analia Gracia RN [facility]07-14-2025 Discharge summary Author Gautam Hardy [facility] Note Date/Time October 17, 2024 7:03 pm [facility] Medical Records Department [address] [place] [address] Discharge Summary 10/17/24 1852 MR#: [id number] Acct: [id number] Name: MARI LOPEZ Rep #:[id number] : 1940 84 From: Gautam Hardy MD PCP: BROOKLYN Aguillon Status:ADM I N Location: TCU [place] [address] Providers Date of Admission: 10/04/24 Primary Care Physician: BROOKLYN Aguillon Consultations 10/11/24 06:45 Consult: Onc/Wound/story writer Routine Comment: Reason for Consult:: redness BLE's, [...] to discharge home with roommate. 10/14/2024 Dr. Rodgers EGD: Impressions : - Normal esophagus. - Non-bleeding gastric ulcers with no stigmata of bleeding. 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 Treated with a heater probe. - No specimens collected. Recommendations : - Return patient to referring hospital for ongoing care. - Resume previous diet. - Continue present medications. Discharge home with friend 10/20/2024, [facility] PT/OT/SN. Physical Exam Const alert General [...] Additional Instructions: Discharge home with friend 10/20/2024, [facility] PT/OT/SN. Meaningful Use Info Meaningful Use Meaningful Use Diagnoses (Choose all that apply): None applicable Discharge Plan Admission Admit Date/Time: 10/04/24 14:29 Primary Reason for Your Visit: Debility. Attending Provider: Gautam Hardy Chi Primary Care Provider: Miryam Orozco Consulting Providers: Qian Albrecht Instructions Additional Instructions / Restrictions: Discharge home with friend 10/20/2024, [facility] PT/OT/SN. Discharge Orders/Prescriptions Prescriptions: New Arthritis [...] BROOKLYN Orozco; Dr. Gautam Hardy MD~ Signed [facility] Work Phone: 1(132) 840-700007-14-2025 History and physical note Author Gautam Hardy [facility] Note Date/Time October 17, 2024 5:10 pm [facility] Medical Records Department [address] [place] [address] History & Physical Exam 10/04/241910 MR#: [id number] Acct: [id number] Name: MARI LOPEZ Rep #:[id number] : 1940 84 From: Gautam Hardy MD PCP: Miryam Orozco, STOPER-C Status:ADM I N Location: TCU [place] [address] HPI - General General Date of Admission: 10/04/24 Date of Service: 10/04/24 Chief Complaint: Here for rehabilitation. HPI Narrative MARI LOPEZ, is a 84 Female who presents with followin09/28/2024 [facility] ED lower extremity injury. Weak, cannot walk, legs give out. Physical therapy twice daily, EMS called, new tremor, new difficulty finding words. K 6.0, BUN 111, Creatinine 4.15, Magnesium 3.1, AST 289, ALT 351, Alk phos 130, Troponin 44. EKG atrial fibrillation, peaked T waves. 09/28/2024 Admit [facility]. FeNa, Renal ultrasound, nephrology for acute kidney injury. PT/OT/CM. Monitor hyperkalemia. IV fluids for JOES, Transaminitis. 09/29/2024 Tremulous, weak. Creatinine improved from 4.15 to 3.78 with IV fluids. Renal ultrasound negative, Hold Furosemide for JOSE. Confusion resolved, CT head negative. Meropenem IV for urinary tract infection. Hold Gabapentin for tremor. 09/30/2024 Feeling better, Tremor resolved, left knee pain. JOSE 2/2 prerenal +/- ATN. 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 Hold Gabapentin, continue IV fluids for tremor. [...] strengthening, prior to discharge home with roommate. [facility] Medical History (Updated 10/04/24 @ 19:25 by [...] bisacodyl 10 mg rectal suppository 10 mg MD X1 PRN Con stipation #1 ea 06/09/24 [...] to GDR. __x__ GRD contraindicated. Reason contraindicated: 07/01/25 1938 <Electronically signed by Gautam Hardy MD> Cosigner Signature (if applicable): CC: BROOKLYN Orozco; Dr. Gautam Hardy MD~ Signed ADDENDUM by Dr. Gautam Hardy MD on 10/06/24 at 0730 Addendum Insomnia - Already on Mirtazapine 7.5mg qhs, add Melatonin 3mg qhs. 10/06/24 0730<Electronically signed by Gautam Hardy MD> Cosigner Signature (if applicable): cc: BROOKLYN Orozco; Dr. Gautam Hardy MD ~* Signed ADDENDUM by Dr. Gatuam Hardy MD on 10/11/24 at 0749 Addendum [...] Orozco; Dr. Gautam Hardy MD ~* Signed [facility] Work Phone: 1(340) 686-786007-14-2025 [facility]07-11-2025 Consult note Author Etiennechela Ramossamaritan [facility] Note Date/Time October 14, 2024 4:28 pm [facility] Medical Records Department [address] [place] [address] Anesthesia Postop Eval II 10/14/24 1628 MR#: [id number] Acct: [id number] Name: MARI LOPEZ Rep #:[id number] : 1940 84 From: Etienne Ortiz RNA PCP: BROOKLYN Aguillon Status:REG S DC Y Race: C Location: [place] [address]-1 Anesthesia Postop Eval I Sum Postop Eval Completion status Anesthesia document: Postop Eval 1 completed: Yes Anesthesia Postop Eval I Summary Anesthesia Postop Eval I Summary: Anesthesia Postop Eval I: Assessment Summary Airway patent Yes 10/14/24 16:21 UPPERS EDGE BURNISHER.MDOT Spontaneous unlabored Yes 10/14/24 16:21 UPPERS EDGE BURNISHER.MDOT respirations Mental status Awake,Calm 10/14/24 16:21 UPPERS EDGE BURNISHER.MDOT nausea No 10/14/24 16:21 UPPERS EDGE BURNISHER.MDOT Vomiting No 10/14/24 16:21 UPPERS EDGE BURNISHER.MDOT Anesthesia Postop Eval I: Fluid Summary Crystalloid volume administer 100 10/14/24 16:21 UPPERS EDGE BURNISHER.MDOT (ml) Colloids volume administered ( ml) Blood Product volume administered (ml) Total IV fluid infused 100 10/14/24 16:21 UPPERS EDGE BURNISHER.MDOT Anesthesia Postop Eval I: Summary Notes Anesthesia Complication No 10/14/24 16:21 UPPERS EDGE BURNISHER.MDOT Anesthesia Complication Comment: Post-operative progress note Anesthesia: Postop Eval II Evaluation Mental status: Awake and Calm Pain Level: 0 nausea: No Vomiting: No Complications Anesthesia Complication: No 10/14/24 1628 <Electronically signed by Etienne Humphrey CRNA> Date _ Etienne Humphrey CRNA Cosigner Signature: Date CC: ~ Signed [facility] Work Phone: 1(885) 391-843307-11-2025 Consult note Author Etienne Humphrey [facility] Note Date/Time October 14, 2024 4:21 pm [facility] Medical Records Department [address] [place] [address] Anesthesia Postop Eval I 10/14/24 1620 MR#: [id number] Acct: [id number] Name: MARI LOPEZ Rep #:[id number] : 1940 84 From: Etienne CARDOSO PCP: BROOKLYN Aguillon Status:REG S DC Y Race: C Location: [place] [address] Anesthesia: Postop Eval I Current Vital Signs [...] Anesthesia document: Postop Eval 1 completed: Yes 10/14/24 1621 <Electronically signed by Etienne Humphrey CRNA> Date _ Etienne Humphrey CRNA Cosigner Signature: Date CC: ~ Signed [facility] Work Phone: 1(635) 598-887107-11-2025 History and physical note Author William Rodgers [facility] Note Date/Time October 14, 2024 4:04 pm [facility] Medical Records Department [address] [place] [address] History & Physical Exam 10/14/24 1556 MR#: [id number] Acct: [id number] Name: MARI LOPEZ Rep #:[id number] : 1940 84 From: William Rodgers DO PCP: BROOKLYN Aguillon Status:REG S DC Location: [place] [address] HPI - General HPI Narrative 84 F who presents To the rehab after recent hospital stay. I was called to see the patient due to decrease in hemoglobin and patient is on anticoagulation withEliquis twice a day for atrial fibrillation. [facility] Medical History VRE (vancomycin resistant enterococcus) [...] Reaction Status Date / Time cefazolin (From [facility]) Allergy Severe hives/difficulty Verified 09/28/24 22:23 swallowing [...] tract 10/14/24 1604 <Electronically signed by William Rodgers DO> Cosigner Signature (if applicable): CC: BROOKLYN Orozco; William Rodgers DO~ Signed [facility] Work Phone: [phone]) 300-822407-11-2025 Procedure [facility] 10-14-2024 Procedure [facility]07-11-2025 Consult note Author Shlomo Hernandez [facility] Note Date/Time October 14, 2024 2:24 pm [facility] Medical Records Department [address] [place] [address] Pre-Anesthesia Evaluation 10/14/24 1424 MR#: [id number] Acct: [id number] Name: MARI LOPEZ Rep #:[id number] : 1940 84 From: Shlomo Hernandez MD PCP: BROOKLYN Aguillon Status:REG S DC Y Race: C Location: [place] [address] ASA Classification* ASA Classification ASA Classification: 3 [...] Procedure(s): EGD Anesthesia History Anesthesia History - assistant import manager: Anesthesia History - assistant import manager Hx Hospitalization Yes: 04/2024-06/2024 PROBABLE 09/06/24 07:38 [...] take am of surgery PONV PONV - assistant import manager: PONV - assistant import manager Female HX of Motion Sickness HX of N/V After Surgery Non-Smoker Duration of Surgery greater than 60 minutes Number of Risk Factors PONV Score Height & Weight Height & Weight: Anesthesia: Height & Weight Height 5 ft 2 in 10/14/24 13:52 Weight: 117.934 kg 10/14/24 13:52 Body Mass Index (BMI) 47.5 10/14/24 13:52 Respiratory Assessment Respiratory Assessment - assistant import manager: Respiratory Tract Infection Hx - assistant import manager Hx Respiratory Tract Infection Yes 09/06/24 08:56 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 Hx Hypertension Yes 10/05/24 15:59 Hx Sleep [...] Tobacco Use History Tobacco Use History - assistant import manager: Tobacco Use History - assistant import manager Tobacco Use Non-smoker 12/26/21 07:36 Smoking Status Never smoker 10/12/24 14:03 Hx Tobacco Use No 10/04/24 14:33 Years Smoking Packs Smoked per Day Smoking Cessation Date was within the last 15 years Hx Smoking Cessation Date Hx Smoking Cessation Counseling Hematologic Medial History Hematologic Hx - assistant import manager: Hematologic 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 Specify any problems Hx of Preganancy in last 3 Months Nurse Filling Out Transfusion & Questions: Date: Time: Patient unable to answer at this time (ie. confused, unrespo /Reproduction History /Reproductive History - assistant import manager: /Reproductive Hx- assistant import manager Hx Now Gestational Age (in weeks): EDC: [...] no additional complaints, except as documented. 10/14/24 1424 <Electronically signed by Shlomo Hernandez MD > Date _ Shlomo Hernandez MD [facility] Signature: Date CC: ~ Signed [facility] Work Phone: 1(149) 674-531007-11-2025 [facility]07-11-2025 Consult note Author Qian Albrecht [facility] Note Date/Time October 14, 2024 12:1 8pm [facility] Medical Records Department [address] [place] [address] Consultation - Nephrology 10/14/24 1217 MR#: [id number] Acct: [id number] Name: MARI LOPEZ Rep #:[id number] : 1940 84 From: Qian flores MD PCP: Miryam Orozco STOPERMarcoC Status:ADM I N Location: [place] [address] Assessment & Plan Assessment/Plan (1) Chronic renal [...] episode of JOSE. Currently denies any complaints. [facility] Medical History VRE (vancomycin resistant enterococcus) [...] Albrecht MD> Cosigner Signature (if applicable): CC: STOPER-Angel Orozco; Dr. Gautam Hardy MD~ Signed [facility] Work Phone: [phone]) 969-782407-09-2025 Discharge summary Author Alexis Friend [facility] Note Date/Time October 12, 2024 4:03p m [facility] Medical Records Department [address] [place] [address] Emergency Department Summary 10/12/24 MR#: [id number] Acct: [id number] Name: MARI LOPEZ Rep #:[id number] : 1940 84 From: Alexis Friend MD [...] inform me that Dr. Jackson is her director of religious life. She is on an anticoagulant. Patient did have an EKG performed in the TCU unit. The one that was ordered here will be canceled. She was in A-fib with RVR. Rate is 131. She has a leftbundle branch block. She was durations 144 ms. QRS duration 354 ms. There is no acute ischemic changes noted. Prior similar symptoms: Yes Recent Ill[facility] Medical History VRE (vancomycin resistant enterococcus) [...] bisacodyl 10 mg rectal suppository 10 mg MD X1 PRN Con stipation #1 ea 06/09/24 [...] Narrative Medical decision making narrative: Suspect patient's "palpitations "is her A-fib with RVR. Since her heart [...] % (Auto) 69.2 Lymph % (Auto) 19.0 [place] % (Auto) 5.3 Eos % (Auto) 5.2 [...] 0RF bisacodyl 10 mg Suppository 10 mg MD X1 PRN (Reason: Constipation) Qty: 1 0RF [...] ODT instead of Zofran tablets. Print Language: Uzbek Disposition Disposition: Home, Self Care What to do if you have Problems For any increased pain, shortness of breath, bleeding, nausea or vomiting, chestpain, or any unexpected problems, contact your Primary Care Provider. Call [facility] ([phone]) or report to the closest Emergency Room. Call 911 if necessary. 10/12/24 1603 <Electronically signed by Alexis Friend MD> Cosigner Signature (if applicable): CC: MARILEEC Miryam Orozco ~ Signed [facility] Work Phone: 1(880) 916-728507-07-2025 Progress note Author Gonzalo [facility] Note Date/Time October 10, 2024 3:04p [facility] Medical Records Department [address] [place] [address] Progress Note - Surgery 10/10/24 1500 MR#: [id number] Acct: [id number] Name: MARI LOPEZ Rep #:[id number] : 1940 84 From: Gonzalo Lomax MD PCP: BROOKLYN Aguillon Status:REG R CR Location: WC Subjective Subjective Operative Information Date of Procedure: 09/06/24 Pre-Operative Diagnosis: Right lower extremity wound Post-Operative Diagnosis: Same Surgery/Procedure Performed: 1) excision of right lower extremity wound for surgical preparation of skin graft , 5x 6 centimeters (CPT 30917) 2) split-thickness skin graft from right thigh to right leg, 5 x 6 cm (CPT 60331) Current encounter, 10 October 2024: The patient is an 84-year-old female s/p above noted procedure who is presentingwith skin excoriations and swelling in the lower extremities. The excoriations on the right thigh were noted to be small and were observed during a recent hospital visit. The patient reported significant swelling in the lower extremities, leading to a hospital admission where she was started on Lasix. The patient also experienced dehydration, which contributed to her hospital admission as well. She is currently in the hospital at the transitional care unit for rehab. Attestation: Documentation on this patient encounter was supported using ambient scribe technology/ voice AI technology. The patient consented to recording for the purpose of documenting the encounter. Provider reviewed content of the generatednote prior to signature. Objective Data Objective Data Vital Signs: Vital Signs Temp Pulse Resp BP 97.0 F L 89 14 111/67 10/10/24 14:26 10/10/24 14:26 10/10/24 14:26 10/10/24 14:26 Physical Exam Narrative ROS - Integumentary: Reports skin excoriations on the right thigh - Cardiovascular: Reports significant swelling in the lower extremities - General: Reports dehydration - Lower extremities: Significant swelling noted (symmetric and bilateral) - Right foot: Warm to touch, diminished pulse palpation - Right thigh: Small excoriations observed Assessment & Plan Assessment/Plan (1) Wound of right lower extremity: PLAN: Assessment and Plan The 84-year-old female with a history of dehydration presents with skin excoriations and swelling in the lower extremities. The excoriations on the right thigh are small and require minimal intervention, such as hydrogel application and bandaging. The swelling in the lower extremities is significant and was initially suspected to be cellulitis, but further evaluation is needed to confirm this diagnosis. The patient was recently hospitalized due to dehydration, which exacerbated her symptoms, and she was started on Lasix to manage the swelling. Ankle Brachial Indices ABIs) are recommended to assess blood flow and determine the suitabilityfor compression therapy. 1. Skin Excoriations On The Right Thigh The excoriations on the right thigh are to be managed with daily application of hydrogel and bandaging to prevent infection and promote healing. 2. Swelling In The Lower Extremities The swelling in the lower extremities is to be managed with Lasix and elevation of the legs. Ankle Brachial Indices (ABIs) are recommended to assess blood flow and determine the suitability for compression therapy. 3. Dehydration The patient was hospitalized for dehydration and should maintain adequate hydration to prevent recurrence. Monitoring of fluid intake and output is advised. (2) S/P flap graft: PLAN: Plan - Tests: Ankle Brachial Indices (ABIs) recommended to assess blood flow and determine suitability for compression therapy - Apply hydrogel and bandage to the right thigh daily. - Elevate legs to reduce swelling. - Continue taking Lasix as prescribed. - Maintain adequate hydration to prevent dehydration. Charges/Coding Procedures Integumentary 111xxx-113xx: 68011 Global Visit 10/10/24 1504 <Electronically signed by Gonzalo Lomax MD> Cosigner Signature (if applicable): CC: ~ Signed [facility] Work Phone: 1(696) 394-990207-02-2025 Progress note Author Merle Liu [facility] Note Date/Time October 05, 2024 4:33p [facility] Medical Records Department [address] [place] [address] Progress Note - Pharmacy 10/05/24 1446 MR#: [id number] Acct: [id number] Name: MARI LOPEZ Rep #:[id number] : 1940 84 From: Merle Liu PCP: BROOKLYN Aguillon Status:ADM I N Location: TCU [place] [address] Documented by User: Merle Liu 10/05/24 15:25 [...] Dose Route Start Last Admin Trade Name Kasie PRN Reason Stop Dose Admin Acetaminophen 1,000 mg 10/04/24 22:00 10/05/24 13:10 Acetaminophen 500 Mg Tablet PO 1,000 mg TID VALERIO Administration Apixaban 2.5 mg 10/04/24 22:00 10/05/24 09:28 Apixaban 2.5 Mg Tablet ([facility]) PO 2.5 mg BID VALERIO Administration Atorvastatin Calcium 40 mg 10/04/24 22:00 10/04/24 21:23 Atorvastatin Calcium 40 Mg Tablet PO 40 mg QHS VALERIO Administration Benzonatate 100 mg 10/04/24 22:00 10/05/24 13:13 Benzonatate 100 Mg Capsule PO Not Given TID [facility] Bisacodyl 10 mg 10/04/24 15:06 Bisacodyl 10 Mg Suppository RC X1 PRN Constipation Calamine/Phenol 1 applic 10/04/24 22:00 10/05/24 09:27 Menthol/Lanolin/Calamine/Znox 113 Gm Tube TOPICAL 1 applic BID [facility] Administration Protocol Calcium Acetate 667 mg 10/04/24 17:45 10/05/24 11:03 Calcium Acetate 667 Mg Capsule PO 667 mg TIDCM [facility] Administration Carvedilol 6.25 mg 10/04/24 17:00 10/05/24 09:28 Carvedilol 6.25 Mg Tablet PO 6.25 mg BIDCM [facility] Administration Protocol Cholecalciferol 50 mcg 10/05/24 10:00 10/05/24 09:29 Cholecalciferol (Vit D3) 25 Mcg Tablet (1,000 Units) PO 50 mcg DAILY VALERIO Administration Ferrous Sulfate 325 mg 10/05/24 12:00 10/05/24 11:03 Ferrous Sulfate 325 Mg Tablet PO 325 mg DAILY@1200 [facility] Administration Gabapentin 100 mg 10/04/24 22:00 10/05/24 13:10 Gabapentin 100 Mg Capsule PO 100 mg TID [facility] Administration Guaifenesin 600 mg 10/04/24 22:00 10/05/24 09:28 Guaifenesin 600 Mg Tablet PO 600 mg BID VALERIO Administration Lacosamide 100 mg 10/04/24 22:00 10/05/24 09:29 Lacosamide 100 Mg Tablet PO 100 mg BID VALERIO Administration Levothyroxine Sodium 125 mcg 10/05/24 06:00 10/05/24 05:34 Levothyroxine 125 Mcg Tablet PO 125 mcg DAILY@0600 VALERIO Administration Lidocaine 1 patch 10/05/24 10:00 10/05/24 09:27 Lidocaine 5% Patch TOPICAL 1 patch DAILY VALERIO Administration Protocol Mirtazapine 7.5 mg 10/04/24 20:00 10/04/24 21:17 Mirtazapine 15 Mg Tablet PO 7.5 mg 2000 VALERIO Administration Multivitamins 1 tablet 10/05/24 08:00 10/05/24 09:28 Multivitamins,Therapeutic Tablet PO 1 tablet DAILYCM [facility] Administration Nitroglycerin 0.4 mg 10/04/24 15:23 Nitroglycerin (Inpatient Use) 0.4 Mg Tab.Subl SL Q5M PRN CARDIAC/CHEST PAIN Oxycodone HCl 5 mg 10/04/24 17:32 10/04/24 22:34 Oxycodone 5 Mg Tablet PO 5 mg Q4H PRN PRN Administration Pain Score 1-10 or Pre PT/OT Polyethylene Glycol 17 gm 10/05/24 10:00 10/05/24 09:27 Polyethylene Glycol 3350 17 Gm Packet PO 17 gm DAILY VALERIO Administration Senna/Docusate Sodium 2 tablet 10/04/24 22:00 10/05/24 09:29 Senna/Docusate Sodium 1 Tablet PO 2 tablet BID VALERIO Administration Sodium Bicarbonate 650 mg 10/04/24 17:00 [...] by Pharmacy Disagree: Define (Gabapentin 100mg tid penitentiary use, continue current dose.) 10/05/24 1525 <Electronically signed by Merle Liu> Merle Liu Cosigner Signature (if applicable): 10/05/24 1633 <Electronically signed by Gautam Hardy MD> CC: ~ Signed [facility] Work Phone: 1(910) 263-402307-01-2025 [facility]07-01-2025 [facility]06-27-2025 Telephone encounter Note* Telephone Encounter - Lizy Capone MD - 09/30/2024 8:28 AM EDT Noted Lizy Capone MD [facility]06-27-2025 Miscellaneous Notes* Telephone Encounter - Lizy Capone MD - 09/30/2024 8:28 AM EDT Noted Lizy Capone MD * Telephone Encounter - Adela Pena LPN - 09/29/2024 10:26 AM EDT Patient friend said she is her POA Alex calling said patient is currently admitted to [facility]. She was taken via squad last night, with UTI, dehydration, confusion, high potassium, etc. She wanted tolet PCP know that. documented in [facility]06[facility] Telephone encounter Note * Telephone Encounter - Adela Pena LPN - 09/29/2024 10:26 AM EDT Patient friend said she is her POA Alex calling said patient is currently admitted to [facility]. She was taken via squad last night, with UTI, dehydration, confusion, high potassium, etc. She wanted tolet PCP know that. [facility]06-25-[facility] Radiology Diagnostic study [facility]06-25-2025 Radiology Diagnostic study [facility] 09-28-2024 Radiology Diagnostic study [facility]06-25-2025 Radiology Diagnostic study [facility]06-25-2025 Discharge summary Author Jhonatan Maxwell [facility] Note Date/Time September 28, 2024 8:32 pm [facility] Medical Records Department [address] [place] [address] Emergency Department Summary 09/28/24 MR#: [id number] Acct: [id number] Name: MARI LOPEZ Rep #:[id number] : 1940 84 From: Jhonatan Maxwell DO [...] working with physical therapy twice today and thatgiovannye felt was and EMS had to be called out to pick her up. They note that recently over the last several days she has also developed a tremor that is new for her. In the triage note they note that she is having some word finding difficulty and notes that this has been going on several days as well. [facility] Medical History Wears glasses Post-menopausal Open [...] bisacodyl 10 mg rectal suppository 10 mg MD X1 PRN Con stipation #1 ea 06/09/24 [...] 09/05/24 Unknown History mg-600 mg tablet extended iotxudk84 hr (Mucinex DM) furosemide 40 mg tablet [...] Reaction Status Date / Time cefazolin (From Kezol) Allergy Severe hives/difficulty Verified 09/06/24 07:54 swallowing [...] following commands and that she was at [facility] year is 2024. [facility] of 0 [...] 0RF bisacodyl 10 mg Suppository 10 mg MD X1 PRN (Reason: Constipation) Qty: 1 0RF [...] NP-C [Primary Care Provider] - Print Language: Uzbek What to do if you have Problems For any increased pain, shortness of breath, bleeding, nausea or vomiting, chestpain, or any unexpected problems, contact your Primary Care Provider. Call [facility] ([phone]) or report to the closest Emergency Room. Call 911 if necessary. 09/28/24 1636 <Electronically signed by Jhonatan Maxwell DO> Cosigner Signature (if applicable): CC: BROOKLYN Orozco ~ Signed [facility] Work Phone: 1(278) 393-401806-19-2025 History of Present illness Narrative* Lizy Capone [...] CONDYLE&PLATU MEDIAL&LAT COMPARTMENTS 1990 bilateral total knee s(Racine) ARTHRP KNE CONDYLE&PLATU MEDIAL&LAT COMPARTMENTS 10/24/2004 bilateral [...] reverse total shoulder. Dr. Klaus Omalley with [facility] Family History FAMILY HISTORY Problem [...] 08/22/2024 Negative Ketones, Urine 08/22/2024 Negative Specific [place], Ur 08/22/2024 1.010 Hemoglobin/Blood,Ur 08/22/2024 Negative pH, [...] kidney disease) stage 4, GFR 15-29 ml/min ([facility]) - ICD9: 585.4, ICD10: N18.4 - eGFR: [...] Past Histories independently gathered by the clinical manager technical support and the remaining scribed note accurately [...] PM. Alex Lackey MA documented in this encounterLima City Hospital2025 NoteHNO ID: [id number] Author: LIZY CAPONE MD Service: ? Author [...] CONDYLEANDPLATU MEDIALANDLAT COMPARTMENTS 1990 bilateral total knee s(Racine) ARTHRP KNE CONDYLEANDPLATU MEDIALANDLAT COMPARTMENTS 10/24/2004 bilateral [...] reverse total shoulder. Dr. Klaus Omalley with [facility] Family History FAMILY HISTORY Problem [...] (MOM) 400 mg/5 mL (more content not included)...[facility]06-17-2025 Telephone encounter Note* Telephone Encounter - [...] stopped in the office Lizy Capone MD [facility]06-17-20[facility] Miscellaneous Notes* Telephone Encounter - Lziy Capone MD - 09/20/2024 2:17 PM EDT [...] office Lizy Capone MD documented in this encounterLima City Hospital06-17-2025 Progress note Author Gonzalo Lomax [facility] Note Date/Time September 20, 2024 9:03 am [facility] Medical Records Department [address] [place] [address] Progress Note 09/20/24 0902 MR#: [id number] Acct: [id number] Name: MARI LOPEZ Rep #:[id number] : 1940 84 From: Gonzalo Lomax MD PCP: BROOKLYN Aguillon Status:REG R CR Location: WC Subjective Subjective [...] for a check-up. Charges/Coding Procedures Integumentary 111xxx-113xx: 35766 Global Visit 09/20/24 0903 <Electronically signed by Gonzalo Lomax MD> Gonzalo Lomax MD Cosigner Signature (if applicable): CC: ~ Signed [facility] Work Phone: 1(894) 654-463506-12-2025 NoteHNO ID: [id number] Author: MICHAEL CARTER APRN.MRI MANAGER Service: ? Author Type: Nurse Practitioner Type: [...] CONDYLEANDPLATU MEDIALANDLAT COMPARTMENTS 1990 bilateral total knee s(Racine) ARTHRP KNE CONDYLEANDPLATU MEDIALANDLAT COMPARTMENTS 10/24/2004 bilateral [...] reverse total shoulder. Dr. Klaus Omalley with [facility] Family History FAMILY HISTORY Problem [...] Use Smoking status: For (more content not included)...[facility] 09-15-2024 History of Present illness Narrative* Michael Carter, NANCI.MRI MANAGER - 09/15/2024 1:47 PM EDT Chief Complaint [...] CONDYLE&PLATU MEDIAL&LAT COMPARTMENTS 1990 bilateral total knee s(Racine) ARTHRP KNE CONDYLE&PLATU MEDIAL&LAT COMPARTMENTS 10/24/2004 bilateral [...] reverse total shoulder. Dr. Klaus Omalley with [facility] Family History FAMILY HISTORY Problem [...] by Dr. Capone as well. Michael Carter APRN.MRI MANAGER documented in this encounterLima City Hospital06-12-2025 Telephone encounter Note * Telephone Encounter - Analia Gracia RN - 09/15/2024 9:32 AM EDT Pts friend Alex called and is notified of providers message and instructions. She voices understanding. Tried to get her in with Dr Capone, but friend said there is no way she would be able tip ready by those appointment times. Pt scheduled with Michael Carter STOPER. Analia Gracia RN [facility]06-12-2025 Miscellaneous Notes* Telephone Encounter - Analia Gracia RN - 09/15/2024 9:32 AM EDT Pts friend Alex called and is notified of providers message and instructions. She voices understanding. Tried to get her in with Dr Capone, but friend said there is no way she would be able tip ready by those appointment times. Pt scheduled with Michael Carter STOPER. Analia Gracia RN * Telephone Encounter - [...] advise. Analia Gracia RN documented in this encounterLima City Hospital06-11-2025 Telephone encounter Note * Telephone Encounter - Samuel Gonzalez DO - 09/14/2024 9:20 PM EDT I think she needs to be assessed in the office. There are no definite signs of pneumonia, but clinical exam is needed to correlate and listen to her to make this judgement Samuel Gonzalez DO [facility] Work Phone: [phone] Telephone encounter Note* Telephone Encounter - Analia Gracia RN - 09/14/2024 12:57 PM EDT Pt called in asking for her chest x-ray results. She states she thinks she has pneumonia. Please call and advise. Analia Gracia RN [facility]06-09-2025 Progress note Author Gonzalo Lomax [facility] Note Date/Time September 12, 2024 2:18p m [facility] Medical Records Department [address] [place] [address] Progress Note 09/12/24 1416 MR#: [id number] Acct: [id number] Name: MARI LOPEZ Rep #:[id number] : 1940 84 From: Gonzalo Lomax MD PCP: BROOKLYN Aguillon Status:REG R CR Location: WC Progress Note Post op day 5 from [...] F/u in 1 week Procedures Integumentary 111xxx-113xx: 90124 Global Visit 09/12/24 1418 <Electronically signed by Gonzalo Lomax MD> Gonzalo Lomax MD Cosigner Signature (if applicable): CC: ~ Signed [facility] Work Phone: 1(740) 258-480806-09-2025 History of Present illness Narrative* Alcon Santiago RT(Musa) - 09/12/2024 4:00 PM EDT Radiology Service [...] PATIENT PRESENTS WITH AN IMPLANTABLE OR ATTACHED VP SOFTWARE ENGINEERING: No RADIOLOGY DEPARTMENT: General X-ray: Exam(s) Completed: Chest X-Ray PERIPHERAL IV DATA: Not applicable SIGNED BY: RT Gracy(Musa) September 12, 2024 3:52 PM documented in this encounterLima City Hospital06-09-2025 NoteHNO ID: [id number] Author: ALCON SANTIAGO RT(R) Service: Radiology Author [...] PATIENT PRESENTS WITH AN IMPLANTABLE OR ATTACHED VP SOFTWARE ENGINEERING: No RADIOLOGY DEPARTMENT: General X-ray: Exam(s) Completed: Chest X-Ray PERIPHERAL IV DATA: Not applicable SIGNED BY: Alcon Santiago RT(R) September 12, 2024 3:52 [facility]06-09-2025 Telephone encounter Note* Telephone Encounter - Alex Lackey MA - 09/12/2024 2:43 PM EDT Pt notified. Alex Lackey MA [facility]06-09-2025 Miscellaneous Notes* Telephone Encounter - Alex [...] xray done. Please advise documented in this encounterLima City Hospital06-09-2025 Telephone encounter Note * Telephone Encounter - Lizy Capone MD - 09/12/2024 2:29 PM EDT OK for CXR as ordered Lizy Capone MD [facility]06-09-2025 Telephone encounter Note* Telephone Encounter - [...] to have chest xray done. Please advise [facility]06-05-20[facility] Telephone encounter Note* Telephone Encounter - Analia Gracia RN - 09/08/2024 4:00 PM EDT Dorys with [facility] and Pt called and notified of providers message. They voice understanding. Analia Gracia RN [facility]06-05-2025 Miscellaneous Notes* Telephone Encounter - Analia Gracia RN - 09/08/2024 4:00 PM EDT Dorys with [facility] and Pt called and notified of providers message. They voice understanding. Analia Gracia RN * Telephone Encounter - Lizy Capone MD - 09/08/2024 3:54 PM EDT OK for continuation of both medications; Rxs sent to pharmacy Lizy Capone MD * Telephone Encounter - Josselin Baxter RN - 09/07/2024 1:48 PM EDT Dorys with [facility] calling with pt update for PCP. [...] extend treatment or for any other orders. [phone]. Josselin Baxter RN documented in this encounterLima [facility] Hospital06-05-2025 Telephone encounter Note * Telephone Encounter - Lizy Capone MD - 09/08/2024 3:54 PM EDT OK for continuation of both medications; Rxs sent to pharmacy Lizy Capone MD [facility]06-04-2025 Telephone encounter Note* Telephone Encounter - Josselin Baxter RN - 09/07/2024 1:48 PM EDT Dorys with [facility] calling with pt update for PCP. [...] extend treatment or for any other orders. [phone]. Josselin Baxter RN [facility]06-03-2025 Consult note Author Robinson Hyman [facility] Note Date/Time September 06, 2024 8:56a [facility] Medical Records Department [address] [place] [address] Pre-Anesthesia Evaluation 09/06/24 0844 MR#: [id number] Acct: [id number] Name: MARI LOPEZ Rep #:[id number] : 1940 84 From: Robinson Hyman MD PCP: BROOKLYN Aguillon Status:REG S DC Y Race: C Location: [place] [address] ASA Classification* ASA Classification ASA Classification: 3 [...] OF SKINGRAFT Anesthesia History Anesthesia History - assistant import manager: Anesthesia History - assistant import manager Hx Hospitalization No 09/04/24 00:24 Any Problems [...] take am of surgery PONV PONV - assistant import manager: PONV - assistant import manager Female Yes 09/02/24 11:04 HX of Motion [...] 09/06/24 08:12 Respiratory Assessment Respiratory Assessment - assistant import manager: Respiratory Tract Infection Hx - assistant import manager Hx Respiratory Tract Infection No 09/02/24 11:04 Any additional information?: Yes Hx Respiratory Tract Infection: Yes History of Anesthesia Respiratory Infection details: Patient was recently put on doxycycline for lung infection. She has only been on it for a couple days. 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 Hx Hypertension Yes 09/04/24 00:24 Hx Sleep [...] Tobacco Use History Tobacco Use History - assistant import manager: Tobacco Use History - assistant import manager Tobacco Use Non-smoker 12/26/21 07:36 Smoking Status Never smoker 09/02/24 11:04 Hx Tobacco Use No 09/02/24 11:04 Years Smoking Packs Smoked per Day Smoking Cessation Date was within the last 15 years Hx Smoking Cessation Date Hx Smoking Cessation Counseling Hematologic Medial History Hematologic Hx - assistant import manager: Hematologic 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 Hx of Blood Transfusion Yes 09/02/24 11:04 [...] confused, unrespo /Reproduction History /Reproductive History - assistant import manager: /Reproductive Hx- assistant import manager Hx Now No 09/02/24 11:04 Gestational Age [...] bisacodyl 10 mg rectal suppository 10 mg MD X1 PRN Con stipation #1 ea 06/09/24 [...] 09/05/24 Unknown History mg-600 mg tablet extended dljfmyo67 hr (Mucinex DM) furosemide 40 mg tablet [...] present throughout.) 09/06/24 0856 <Electronically signed by Robinosn padilla MD> Date _ Robinson Jose Signature: Date CC: ~ Signed [facility] Work Phone: [phone]) 386-346306-03-2025 Procedure [facility] 09-06-2024 History and physical note Author Gonzalo Lomax [facility] Note Date/Time September 06, 2024 7:36a m [facility] Medical Records Department [address] [place] [address] H&P Exam - Surgical 09/06/24 0734 MR#: [id number] Acct: [id number] Name: MARI LOPEZ Rep #:[id number] : 1940 84 From: Gonzalo Lomax MD PCP: BROOKLYN Aguillon Status:REG S DC Location: [place] [address] HPI - General HPI Narrative History of Wound: Mari Lopez is a delightful 84-year-old female who presents today as a referral from her director of religious life for a right lower extremity hematoma that [...] been recovering at a skilledursing facility near [facility] ever since. She was doing welloverall from [...] and end[facility] at the [facility]. She is not [facility] in staying at the [facility] while the VAC therapy is in place [...] and evaluated. Ready to proceed with surgery. [facility] Medical History Wears glasses Post-menopausal Open [...] bisacodyl 10 mg rectal suppository 10 mg MD X1 PRN Con stipation #1 ea 06/09/24 [...] 09/05/24 Unknown History mg-600 mg tablet extended cyoxddo09 hr (Mucinex DM) furosemide 40 mg tablet [...] 3 times per week (if discharged from [facility] will need home health 3 times per [...] BROOKLYN Orozco; Dr. Gonzalo Lomax MD~ Signed [facility] Work Phone: 1([phone]) 356-857806-02-2025 Telephone encounter Note* Telephone Encounter - Alex Lackey MA - 09/05/2024 3:15 PM EDT Pt notified and voiced understanding. Alex Lackey MA [facility]06-02-2025 Miscellaneous Notes* Telephone Encounter - Alex Lackey MA - 09/05/2024 3:15 PM EDT Pt notified and voiced understanding. Alex Lackey MA * Telephone Encounter - Lizy Capone MD - 09/05/2024 2:35 PM EDT Med list reviewed and prescriptions sent to [facility]. May stop Eliquis and Protonix Lizy Capone MD * Telephone Encounter - Alex Lcakey MA - 09/05/2024 11:39 AM EDT Pt [...] to stay on will need refilled to [facility] [place]. Asking for this to be done BHUMIKA as she is almost out of medications. Alex Lackey MA documented in this encounterLima City Hospital06-02-2025 Telephone encounter Note * Telephone Encounter - Lizy Capone MD - 09/05/2024 2:35 PM EDT Med list reviewed and prescriptions sent to [facility]. May stop Eliquis and Protonix Lizy Capone MD [facility]06-02-20[facility] Telephone encounter Note* Telephone Encounter - [...] to stay on will need refilled to [facility] [place]. Asking for this to be done BHUMIKA as she is almost out of medications. Alex Lackey MA [facility]06-02-2025 Telephone encounter Note* Telephone Encounter - Mulugeta Jennings APRN.CNP - 09/05/2024 7:24 AM EDT The following approved medication requests have been transmitted electronically. Requested Prescriptions Pending Prescriptions Disp Refills levothyroxine (LEVOXYL) 125 mcg tablet 90 tablet 3 Sig: Take 1 tablet by mouth once daily. Take on empty stomach. For thyroid. Mulugeta Jennings APRN.CNP [facility]06-02-2025 Miscellaneous Notes* Telephone Encounter - Mulugeta [...] 05, 2024 6:49 AM documented in this encounterLima City Hospital06-02-2025 Telephone encounter Note * Telephone Encounter [...] Zuluaga LPN September 05, 2024 6:49 AM [facility]06-01-2025 NoteHNO ID: [id number] Author: DEACON VALDEZ APRN.CNP Service: ? Author Type: Nurse Practitioner Type: Progress Notes Filed: 09/04/2024 14:51 Note Text: This note was created using NoteWriter. Subjective Mari Lopez is a 84 year old female. HPI Patient presents today complaining of some shortness of breath and wheezing which has been ongoing for the last 2 weeks. She denies any fevers. She notes that she was recently discharged from [facility] after having been hospitalized [...] - BENZONATATE 100 MG CAPSULE Deacon Valdez APRN.CNPMarietta [facility]06-[facility]-20[facility] History of Present illness Narrative* Deacon Valdez APRN.CJ - 09/04/2024 2:48 PM EDT This note was created using Puzzlium. Subjective Mari Lopez is a 84 year old female. HPI Patient presents today complaining of some shortness of breath and wheezing which has been ongoing for the last 2 weeks. She denies any fevers. She notes that she was recently discharged from [facility] after having been hospitalized [...] CAPSULE Deacon Valdez APRN.CJ documented in this encounterLima City Hospital05-29-2025 Telephone encounter Note * Telephone Encounter - Analia Gracia RN - 09/01/2024 6:07 PM EDT Called and left a detailed voicemail notifying Lora from [facility] of providers message. Clinic phone number was left in case she had any questions. Analia Gracia RN [facility]05-29-2025 Miscellaneous Notes* Telephone Encounter - Analia Gracia RN - 09/01/2024 6:07 PM EDT Called and left a detailed voicemail notifying Lora from [facility] of providers message. Clinic phone number was left in case she had any questions. Analia Gracia RN * Telephone Encounter - Liyz Capone MD - 08/30/2024 4:55 PM EDT OK to stay on iron as she is taking it. OK for pain med orders Mirena added to Med list. . Lizy Capone MD * Telephone Encounter - Lora Najera RN - 08/30/2024 10:36 AM EDT Lora from [facility] calls and reports that patient started with home health services. Lora makes note of a couple different things: Patient is on iron tablets which is contradicted for someone with peanut allergies. Patient has been taking medication with no issues. Patient had discharged from [place] with oxycodone orders of 5 mg every morning then 5 mg q4h PRN Pain. Lora does not think patient is taking medication regularly but asking if PCP ok with those orders? Patient has mirena IUD. Asking if that can be noted on patient's medication list? Please review and advise, Lora Najera RN documented in this encounterLima City Hospital05-29-2025 Progress note Author Gonzalo [facility] Note Date/Time September 01, 2024 3:14p m [facility] [address] [place] [address] Progress Note - Wound Care 09/01/24 1512 MR#: [id number] Acct: [id number] Name: MARI LOPEZ Rep #:[id number] : 1940 84 From: Gonzalo Lomax MD PCP: BROOKLYN Aguillon Status:REG R CR Location: History of Present Illness Date of Service: 09/01/24 History of Wound: Mari Lopez is a delightful 84-year-old female who presents today as a referral from her director of religious life for a right lower extremity hematoma that [...] been recovering at a skillednursing facility near [facility] ever since. She was doing welloverall from [...] and endorses good dressing [facility] at the [facility]. She is not interested in staying at the [facility] while the VAC therapy is in place [...] Charges/Coding Visit Charges Office Visits / Consults: 86187 OV L3 Est 20min Physical Exam Narrative [...] Start: 08/15/24 09:19 Freq: Status: Active Protocol: MICHELL.LOWZOYA Activity Type Activity Date Activity User E-sign Co-sign Detail Recorded Client Recorded Date Recorded By Document 08/15/24 09:19 ML [id number] 08/15/24 09:22 ML Document 08/22/24 09:46 DL [id number] 08/22/24 09:56 DL Document 09/01/24 14:39 JF [id number] 09/01/24 14:49 JF 08/15/24 08/22/24 09/01/24 09:19 09:46 14:39 - Today's Visit Information Type of service Follow-up Visit Follow-up Visit Follow-up Visit (Physician/MRI MANAGER (Physician/MRI MANAGER (Physician/MRI MANAGER ) ) ) Arrival Mode Wheelchair Ambulatory, [...] Date Recorded By Document 08/15/24 09:19 ML [id number] 08/15/24 09:22 ML Edit Result 08/15/24 09:19 ML (1) [id number] 08/15/24 09:26 ML Document 08/22/24 09:46 DL [id number] 08/22/24 09:56 DL Document 09/01/24 14:39 JF [id number] 09/01/24 14:49 JF (1) RLE - Slough/Fibrin [...] Recorded Date Recorded By Document 08/15/24 09:26 BM [id number] 08/15/24 09:35 BMF Document 08/22/24 10:35 BM [id number] 08/22/24 10:48 [facility] Edit Result 08/22/24 10:35 BMF (1) [id number] 08/31/24 08:41 BMF Document 09/01/24 14:59 DS [id number] 09/01/24 15:02 DS (1) RLE - Debridement, [...] Is Patient Pain Free? Yes Yes Yes - Nurse 3 - General Ulcer D/C NN Start: 08/15/24 09:19 Freq: Status: Active Protocol: Activity Type Activity Date Activity User E-sign Co-sign Detail Recorded Client Recorded Date Recorded By Document 08/15/24 09:53 DL [id number] 08/15/24 09:54 DL Document 08/22/24 11:11 JF [id number] 08/22/24 11:11 JF Edit Result 08/22/24 11:11 JF (1) [id number] 08/22/24 11:23 JF (1) RLE - Setting [...] Is Patient Pain Free? Yes Yes - Visit Discharge Discharge Condition Stable Stable Ambulatory Status Ambulatory Walker Transportation Private Auto Private Auto Accompanied by friend Medication Reconcilliation completed & Yes provided to patient/care provider Clinical Summary of Care Provided Yes Facility Type Nursing Home Care Facility Orders Sent Yes Assessment/Plan Assessment/Plan [...] 3 times per week (if discharged from [facility] will need home health 3 times per [...] for insurance prior authorization are as follows: [id number], [id number] 09/01/24 1514 <Electronically signed by Gonzalo Lomax MD> Cosigner Signature (if applicable): CC: ~ Signed [facility] Work Phone: 1(685) 353-358205-27-2025 Telephone encounter Note* Telephone Encounter - Elderbrock, Lizy D, MD - 08/30/2024 4:55 PM EDT OK to stay on iron as she is taking it. OK for pain med orders Mirena added to Med list. . Lizy Capone MD [facility]05-27-2025 Telephone encounter Note* Telephone Encounter - Lora Najera RN - 08/30/2024 10:36 AM EDT Lora from [facility] calls and reports that patient started with home health services. Lora makes note of a couple different things: Patient is on iron tablets which is contradicted for someone with peanut allergies. Patient has been taking medication with no issues. Patient had discharged from [place] with oxycodone orders of 5 mg every morning then 5 mg q4h PRN Pain. Lora does not think patient is taking medication regularly but asking if PCP ok with those orders? Patient has mirena IUD. Asking if that can be noted on patient's medication list? Please review and advise, Lora Najera RN [facility]05-19-2025 Progress note Author Gonzalo Lomax [facility] Note Date/Time August 22, 2024 12:08 pm [facility] [address] [place] [address] Progress Note - Wound Care 08/22/24 1146 MR#: [id number] Acct: [id number] Name: MARI LOPEZ Rep #:[id number] : 1940 84 From: Gonzalo Lomax MD PCP: BROOKLYN Aguillon Status:REG R CR Location: ADDENDUM by Dr. Gonzalo Lomax MD on 08/22/24 at 1208 Addendum Addendum: attention eliud CPT: 23460, 52328 Procedures Integumentary 111xxx-113xx: 79277 [place] subq tissue 20 sq cm/< Add On Codes: 36162 [place] subq tissue add-on 08/22/24 1208<Electronically signed by Gonzalo Lomax MD> Cosigner Signature (if applicable): cc: ~* Signed ADDENDUM by Dr. Gonzalo Lomax MD on 08/22/24 at 1207 Procedures Integumentary 111xxx-113xx: 74245 Socorro subq tissue 20 sq cm/< Add On Codes: 21942 Socorro subq tissue add-on 08/22/24 1207<Electronically signed by Gonzalo Lomax MD> Cosigner Signature (if applicable): cc: ~* Signed History of Present Illness Date of Service: 08/22/24 History of Wound: Mari Lopez is a delightful 84-year-old female who presents today as a referral from her director of religious life for a right lower extremity hematoma that [...] ICU. [facility] [place] ever since. She was doing welloverall from [...] and endorses good dressing changes at the [facility]. She is not interested in staying at the [facility] while the VAC therapy is in place [...] 09:46 08/22/24 09:46 Charges/Coding Procedures Integumentary 111xxx-113xx: 34840 Socorro subq tissue 20 sq cm/< Physical [...] Post-Debridement Measurements and Additional Note: Post-Debridement Measurements/Treatment WC - Nurse 1 - General Ulcer Assessment Start: 08/15/24 09:19 Freq: Status: Active Protocol: MICHELL.CLARIBEL Activity Type Activity Date Activity User E-sign Co-sign Detail Recorded Client Recorded Date Recorded By Document 08/15/24 09:19 ML [id number] 08/15/24 09:22 ML Document 08/22/24 09:46 DL [id number] 08/22/24 09:56 DL 08/15/24 08/22/24 09:19 09:46 - Today's Visit Information Type of service Follow-up Visit Follow-up Visit (Physician/MRI MANAGER (Physician/MRI MANAGER ) ) Arrival Mode Wheelchair Ambulatory, Walker [...] Pain Free? Yes Yes WC - Nurse 1 - General Ulcer Measurement Start: 08/15/24 09:19 Freq: Status: Active Protocol: Activity Type Activity Date Activity User E-sign Co-sign Detail Recorded Client Recorded Date Recorded By Document 08/15/24 09:19 ML [id number] 08/15/24 09:22 ML Edit Result 08/15/24 09:19 ML (1) [id number] 08/15/24 09:26 ML Document 08/22/24 09:46 DL [id number] 08/22/24 09:56 DL (1) RLE - Slough/Fibrin [...] Calf (cm) 46 Right Ankle (cm) 27.2 - Nurse 2 - General Ulcer CM Notes Start: 08/15/24 09:19 Freq: Status: Active Protocol: Activity Type Activity Date Activity User E-sign Co-sign Detail Recorded Client Recorded Date Recorded By Document 08/15/24 09:26 [facility] [id number] 08/15/24 09:35 [facility] Document 08/22/24 10:35 [facility] [id number] 08/22/24 10:48 [facility] 08/15/24 08/22/24 09:26 10:35 Wound [...] Patient Pain Free? Yes Yes - Nurse 3 - General Ulcer D/C NN Start: 08/15/24 09:19 Freq: Status: Active Protocol: Activity Type Activity Date Activity User E-sign Co-sign Detail Recorded Client Recorded Date Recorded By Document 08/15/24 09:53 DL [id number] 08/15/24 09:54 DL Document 08/22/24 11:11 JF [id number] 08/22/24 11:11 JF Edit Result 08/22/24 11:11 JF (1) [id number] 08/22/24 11:23 JF (1) RLE - Setting [...] Is Patient Pain Free? Yes Yes - Visit Discharge Discharge Condition Stable Stable Ambulatory Status Ambulatory Walker Transportation Private Auto Private Auto Accompanied by friend Medication Reconcilliation completed & Yes provided to patient/care provider Clinical Summary of Care Provided Yes Facility Type [facility] [employer] [facility] Care Facility Orders Sent Yes Assessment/Plan Assessment/Plan [...] 3 times per week (if discharged from [facility] will need home health 3 times per [...] for insurance prior authorization are as follows: [id number], [id number] 08/22/24 1158 <Electronically signed by Gonzalo Lomax MD> Cosigner Signature (if applicable): CC: ~ Signed [facility] Work Phone: 1(205) 317-585005-19-2025 History of Present illness Narrative* Lizy Capone [...] pt was re-admitted back in April into [facility] ICU for sepsis and kidney failure. Pt was intubated while admitted. She was then life flighted to [facility] ICU to see Neurology on 05/04/24 and discharged on 05/18/24 to a Rehab Facility, staying until 06/10/24. Pt was then d/c to [place] [facility] on 06/10/24 and has not yet [...] of seizure x 2 during admission at [facility]. Pt notes she had 3 seizures while her flight to [facility]. Is scheduled with [facility] in September. Pt reports today that she is supposed to be onmedication for 6 months. Nephro - Follows with Dr. Casper. Hx of CKD. When in the hospital pt had kidney failure. Did not require dialysis. Cardio - Follows with [facility], Dr. Jackson. Hx of heart failure, and PE. Pt takes Eliquis5 mg bid, ASA 81 mg once daily, Zestoretic 10-12.5 mg once daily, Lasix 40 mg once daily and ToprolXL 50 mg once daily. Pulm - Hx of pulmonary issues. Schedule with [facility], did see [facility]. Anemia - [...] reports an incident that occurred while at [place], where she was trying to get into her car, Therapist did not lock her wheelchair. She hit her right lower leg on the running board of her car causing a hematoma. Following with Dr. Lomax, has had to have area cleaned out a couple of times. Wound Center put in an order for [facility] to change dressing 3x per week. [...] CONDYLE&PLATU MEDIAL&LAT COMPARTMENTS 1990 bilateral total knee s([place]acine) ARTHRP KNE CONDYLE&PLATU MEDIAL&LAT COMPARTMENTS 10/24/2004 bilateral [...] reverse total shoulder. Dr. Klaus Omalley with [facility] Family History FAMILY HISTORY Problem [...] mg 24 hr tablet Take by mouth. Hvlgkdkgpvv-Ckmervnrd-Fxu C-Mn (GLUCOSAMINE CHONDROITIN MAXSTR) 500-400 mg cap Take 1 capsule by mouth three times daily. COMPOUNDED PRESCRIPTION Stair lift DAILY-LUISITO tablet TAKE 1 TABLET BY MOUTH ONCE DAILY. xlziroy-tnpzdpmxy-ndhhbmy D3 (CALCIUM 500+D) 500 mg(1,250mg) -200 unit [...] on 07/21/2024 Covid-19 Vaccine() due on 07/28/2024 Diabetes Screening due on [...] Moderate Lizy Capone MD [facility] NoteHNO ID: [id number] Author: LIZY CAPONE MD Service: ? Author [...] pt was re-admitted back in April into [facility] ICU for sepsis and kidney failure. Pt was intubated while admitted. She was then life flighted to [facility] ICU to see Neurology on 05/04/24 and discharged on 05/18/24 to a Rehab Facility, staying until 06/10/24. Pt was then d/c to [facility] on 06/10/24 and has not yet [...] of seizure x 2 during admission at [facility]. Pt notes she had 3 seizures while her flight to [facility]. Is scheduled with [facility] in September. Pt reports today that she is supposed to be on medication for 6 months. Nephro - Follows with Dr. Casper. Hx of CKD. When in the hospital pt had kidney failure. Did not require dialysis. Cardio - Follows with [facility], Dr. Jackson. Hx of heart failure, and PE. Pt takes Eliquis 5 mg bid, ASA 81 mg once daily, Zestoretic 10-12.5 mg once daily, Lasix 40 mg once daily and Toprol XL 50 mg once daily. Pulm - Hx of pulmonary issues. Schedule with [facility], did see [facility]. Anemia - [...] reports an incident that occurred while at [place], where she was trying to get into her car, Therapist did not lock her wheelchair. She hit her right lower leg on the running board of her car causing a hematoma. Following with Dr. Lomax, has had to have area cleaned out a couple of times. Wound Center put in an order for [facility] to change dressing 3x per week. [...] and thrombophlebitis of femoral vein (deep) (superficial) ([facility]) Unspecified sleep apnea Previous Surgical History PAST SURGICAL HISTORY Procedure Laterality Date ANESTHESIA HERNIA REPAIR LOWER ABDOMEN NOS 04/2004,05/11 gortex put in on 05/11 then taken out06/08 ARTHRP KNE CONDYLEANDPLATU MEDIALANDLAT COMPARTMENTS 1990 bilateral total knee s([place]) ARTHRP KNE CONDYLEANDPLATU MEDIALANDLAT COMPARTMENTS 10/24/2004 bilateral [...] reverse total shoulder. Dr. Klaus Omalley with [facility] Family History FAMILY HISTORY Problem [...] tablet by m (more content not included)... [facility]05-12-2025 History and physical note Author Gonzalo Lomxa [facility] Note Date/Time August 15, 2024 9:52a m [facility] [address] [place] [address] H&P Exam - Wound Care 08/15/24 0841 MR#: [id number] Acct: [id number] Name: MARI LOPEZ Rep #:[id number] : 1940 84 From: Gonzalo Lomax MD PCP: BROOKLYN Aguillon Status:REG R CR Location: History of Present Illness Date of Service: 08/15/24 History of Wound: Mari Lopez is a delightful 84-year-old female who presents today as a referral from her director of religious life for a right lower extremity hematoma that [...] been recovering at a skilled[facility]urs[facility] facility near [facility] ever since. She was doing welloverall from [...] Dakin's soaked Kerlix. No fevers or chills. [facility] Medical History Urinary incontinence Osteopenia Spinal [...] bisacodyl 10 mg rectal suppository 10 mg MD X1 PRN Con stipation #1 ea 06/09/24 [...] tolerated procedure well Charges/Coding Procedures Integumentary 111xxx-113xx: 96052 Socorro musc/fascia 20 sq cm/< Add On Codes: 33965 Socorro musc/fascia add-on (x 3 units ) [...] precautions. Patient happy with the plan 08/15/24 4209 <Electronically signed by Gonzalo Lomax MD> Cosigner Signature (if applicable): CC: ~ Signed [facility] Work Phone: 1(203) 721-434505-09-2025 Evaluation note* Diagnosis Onset Date Resolution Status [...] 28, 2024 8:00pm Hyperkalemia resolved September 28, 025 8:00pm Metabolic acidosis resolved September 052024 [...] lower extremity acute October 10, 2024 1:41pm [facility] Work Phone: 1(862) 204-468905-09-2025 Evaluation note* Diagnosis Onset Date Resolution Status [...] 28, 2024 8:00pm Hyperkalemia resolved September 28, 025 8:00pm Metabolic acidosis resolved September 052024 8:00pm Toxic metabolic encephalopathy resol kelsi September 28, 2024 8:00pm Tremulousness resolved September 28, 2024 8:00pm UTI (urinary tract infection) resolv ed September 28, 2024 8:00pm (HFpEF) heart failure with preserved ejection fraction acute October 04, 2024 2:29pm Appetite loss acute October 04, 025 2:29pm Atrial fibrillation acute October 04, [...] 04, 2024 2:29pm Tremulousness resolved October 04 2 025 2:29pm UTI (urinary tract infection) resolv ed October 04, 2024 2:29pm S/P flap graft acute October 10, 2024 1:41pm Wound of right lower extremity acute October 10, 2024 1:41pm Acute on chronic anemia chronic J wilbert 2024 1:45pm [facility] Work Phone: 1([phone]) 753-913105-09-2025 Evaluation note* Diagnosis Onset Date Resolution Status [...] 2024 2:29pm Iron deficiency anemia acute Ju ly 2024 2:29pm Left knee pain acute October 04, 2024 2:29pm Lymphedema acute October 04, 2024 2:29pm Obstructive sleep apnea acute J wilbert 2024 2:29pm Hyperkalemia resolved October 04 2:29pm [...] lower extremity acute October 24, 2024 9:15am [facility] Work Phone: 1([phone]) 546-894505-09-2025 Evaluation note* Diagnosis Onset Date Resolution Status [...] ejection fraction inactive October 25, 2024 2:12pm [facility] Work Phone: 1(894) 382-900805-09-2025 Evaluation note* Diagnosis Onset Date Resolution Status [...] 28, 2024 8:00pm Hyperkalemia resolved September 28, 025 8:00pm Metabolic acidosis resolved September 052024 8:00pm Toxic metabolic encephalopathy resol kelsi September 28, 2024 8:00pm Tremulousness resolved September 28, 2024 8:00pm UTI (urinary tract infection) resolv ed September 28, 2024 8:00pm (HFpEF) heart failure with preserved ejection fraction acute October 04, 2024 2:29pm Appetite loss acute October 04, 025 2:29pm Atrial fibrillation acute October 04, [...] ejection fraction inactive October 25, 2024 2:12pm (HFpEF) heart failure with preserved ejection fraction acute October 29, 2024 5:34am Debility acute October 29 5:34am Open leg wound acute October 29, 2024 5:34am Tremulousness resolved October 29, 2024 5:34am [facility] Work Phone: 1([phone]) 700-363605-09-2025 Evaluation note* Diagnosis Onset Date Resolution Status [...] infection) resolv ed September 28, 2024 8:00pm Appetite loss acute October 04, 2 025 2:29pm Atrial fibrillation acute October 04, 2024 2:29pm Bilateral knee pain acute October 04, 2024 2:29pm BMI 45.0-49.9, adult acute October 04, 2024 2:29pm Chronic renal failure (CRF), stage 4 (severe) acute October 04, 2024 2:29pm Coronary artery disease acute J wilbert 5 2:29pm Debility acute October 04, 2024 2:29pm [...] Obstructive sleep apnea acute J 2024 2:29pm (HFpEF) heart failure with preserved ejection fraction resolved October 04, 2024 2:29pm Hyperkalemia resolved October 04 2:29pm Metabolic acidosis resolved October 042024 2:29pm Seizure disorder resolved October 2:29pm Toxic metabolic encephalopathy resol kelsi October 04, 2024 2:29pm Tremulousness resolved October 04, 2:29pm UTI (urinary tract infection) resolv ed October 04, 2024 2:29pm Acute on chronic anemia chronic J wilbert 2024 1:45pm S/P flap graft acute October 24, 2024 9:15am Wound of right lower extremity acute October 24, 2024 9:15am Atrial fibrillation, chronic chronic October 25, 2024 2:12pm (HFpEF) heart failure with preserved ejection fraction inactive October 25, 2024 2:12pm Debility acute October 29 5:34am Open leg wound acute October 29, 2024 5:34am (HFpEF) heart failure with preserved ejection fraction resolved October 29, 2024 5:34am Tremulousness resolved October 29, 2024 5:34am [facility] Work Phone: 1([phone]) 951-232405-09-2025 Evaluation note* Diagnosis Onset Date Resolution Status [...] 28, 2024 8:00pm Hyperkalemia resolved September 28, 025 8:00pm Metabolic acidosis resolved September 052024 8:00pm Toxic metabolic encephalopathy resol kelsi September 28, 2024 8:00pm Tremulousness resolved September 28, 2024 8:00pm UTI (urinary tract infection) resolv ed September 28, 2024 8:00pm Appetite loss acute October 04, 025 2:29pm Atrial fibrillation acute October 04, 2024 2:29pm Bilateral knee pain acute October 04, 2024 2:29pm BMI 45.0-49.9, adult acute October 04, 2024 2:29pm Chronic renal failure (CRF), stage 4 (severe) acute October 04, 2024 2:29pm Coronary artery disease acute 2024 2:29pm Debility acute October 04, 2024 2:29pm DVT (deep venous thrombosis) acute October 04, 2024 2:29pm Essential (primary) hypertension acute October 04, 2024 2 :29pm GERD (gastroesophageal reflu x disease) acute October 04, 2024 2 :29pm Hyperlipidemia acute October 04, 2024 2:29pm Hypothyroidism acute October 04, 2024 2:29pm Insomnia acute October 04, 2024 2:29pm Iron deficiency anemia acute Ju 2024 2:29pm Left knee pain acute October 04, 2024 2:29pm Lymphedema acute October 04, 2024 2:29pm Obstructive sleep apnea acute J 2024 2:29pm (HFpEF) heart failure with preserved ejection fraction resolved October 04, 2024 2:29pm Hyperkalemia resolved October 04 2:29pm [...] ejection fraction inactive October 25, 2024 2:12pm Debility acute October 29 5:34am Open leg wound acute October 29, 2024 5:34am (HFpEF) heart failure with preserved ejection fraction resolved October 29, 2024 5:34am Tremulousness resolved October 29, 2024 5:34am UTI (urinary tract infection) acute November 11, 2024 2:49pm [facility] Work Phone: 1([phone]) 733-687604-25-2025 Discharge summary Author Jean Paul Ha [facility] Note Date/Time July 29, 2024 3:4 2pm [facility] Medical Records Department [address] [place] [address] Emergency Department Summary 07/29/24 MR#: [id number] Acct: [id number] Name: MARI LOPEZ Rep #:[id number] : 1940 84 From: Jean Paul Vieyra [...] oxycodone at facility to help with pain. [facility] Medical History Urinary incontinence Osteopenia Spinal [...] bisacodyl 10 mg rectal suppository 10 mg MD X1 PRN Con stipation #1 ea 06/09/24 [...] clinician: N/A This note was generated with eBureau dictation software. It may contain incorrectwords, spelling, and punctuation that were not noted in checking the note beforesigning. Radiography Diagnostic Testing: Clinical Impression(s) from Imaging Studies Tibia/Fibula X-Ray 07/29/24 15:09 IMPRESSION: Right total knee arthroplasty. No acute osseous abnormalities. Soft tissue swelling. Reading Location: [facility] Discharge Plan Triage Chief Complaint: Wound ED [...] 0RF bisacodyl 10 mg Suppository 10 mg MD X1 PRN (Reason: Constipation) Qty: 1 0RF [...] Miryam Orozco NP-C [Primary Care Provider[facility] [facility] [Non-Staff] - 1 Week Activity Restrictions/Additional Instructions: X-ray right leg negative. Continue ice to help with burning. Jeancarlos wrap to help with compression. You have medication of oxycodone use at facility. Daily wound care. Follow-up with wound care clinic to make sure appropriate healing. Print Language: Uzbek Disposition Disposition: Home, Self Care What to do if you have Problems For any increased pain, shortness of breath, bleeding, nausea or vomiting, chestpain, or any unexpected problems, contact your Primary Care Provider. Call [facility] ([phone]) or report to the closest Emergency Room. Call 911 if necessary. 07/29/24 4846 <Electronically signed by Jean Paul Vieyra> Cosigner Signature (if applicable): CC: BROOKLYN Orozco ~ Signed [facility] Work Phone: 1(222) 510-743304-25-2025 Radiology Diagnostic study noteWooster Community [id number] Telephone encounter Note* Telephone Encounter - Mulugeta Jennings APRN.CNP - 07/04/2024 11:01 AM EDT Approved. [facility] website checked and validated. All prescriptions have been APPROPRIATELY filled. No suspiciousactivity was identified. 07/04/2024 by Mulugeta Jennings APRN.CNP The following approved medication requests have been transmitted electronically. Requested Prescriptions Signed Prescriptions Disp Refills zolpidem (AMBIEN) 10 mg 30 tablet 2 Sig: Take 1 tablet by mouth at bedtime as needed for up to 90 days. Authorizing Provider: MULUGETA JENNINGS APRN.CNP [facility]03-31-2025 Miscellaneous Notes* Telephone Encounter - Mulugeta Jennings APRN.CNP - 07/04/2024 11:01 AM EDT Approved. [facility] website checked and validated. All [...] needed for up to 90 days. [facility] July 01, 2024 4:40 PM documented in this encounterL[facility]03-28-2025 Telephone encounter Note * Telephone Encounter [...] needed for up to 90 days. Isabell [facility] July 01, 2024 4:40 PM [facility]03-07-2025 [facility]02-13-2025 [facility]02-12-2025 Evaluation note* Diagnosis Onset Date Resolution [...] May 18, 2024 7:11pm Acute hyperkalemia resolved Februa ry 2024 7:11pm Acute on chronic back [...] lower extremity acute September 01, 2024 2:45pm [facility] Work Phone: 1(120) 154-429602-12-2025 Evaluation note* Diagnosis Onset Date Resolution Status [...] 2024 2:45pm Seizure disorder chronic September 8:38am [facility] [employer] [facility] Work Phone: [phone]) 460-395002-12-2025 Evaluation note* Diagnosis Onset Date Resolution Status [...] lower extremity acute September 06, 2024 7:22am [facility] Work Phone: 1([phone]) 222-576302-12-2025 Evaluation note* Diagnosis Onset Date Resolution Status [...] flap graft acute September 19, 2024 2:00pm [facility] Work Phone: [phone] Evaluation note* Diagnosis Onset Date Resolution Status [...] kidney injury) acute September 28, 2024 8:00pm [facility] Work Phone: 1([phone]) 487-380802-12-2025 Evaluation note* Diagnosis Onset Date Resolution Status [...] 28, 2024 8:00pm Hyperkalemia acute September 28, 8:00pm Left knee pain acute September 28, 2024 8:00pm Metabolic acidosis acute September 052024 8:00pm Toxic metabolic encephalopathy acute September 28, 2024 8:00pm Tremulousness acute September 28, 2024 8:00pm UTI (urinary tract infection) acute September 28, 2024 8:00pm Encephalopathy resolved September 28, 2024 8:00pm [facility] Work Phone: 1([phone]) [phone] Miscellaneous Notes* Nursing Notes - Steffany Mishra [...] EST NG clogged, unable to unclog tube. [facility] notified. Attempted to place new NG, unable to advance tube. [facility] notified. * Plan of Care [...] oropharyngeal swallow function to most appropriately guide SUPERVISOR SMOKE [employer] plan of care Outcome: Met * Plan of Care - Nazanin Kaye RD - 05/16/2024 1:31 PM EST Problem: Enteral Nutrition Goal: Feeding Tolerance Outcome: Progressing Nutrition Recommendations and Plan of Care: 1. Diet advancement pending MBS/gabbie [employer]PER[employer]OR [employer]KE [employer] 2. Continue current enteral nutrition regimen: Nepro 1.8 @ 35 mL/hr- provides 840mL volume, 1512kcal, 68g pro, 134g CHO, 611mL free H2O - increase to 1pkt Prosource TF BID - provides additional 80kcal, 22g pro - at minimum recommend 30mL flushes q4 hrs to maintain tube patency 3. If long term care phlebotomist enteral nutrition is anticipated, recommend transitioning to [...] pharyngeal swallow function to most appropriately guide SUPERVISOR [employer]KE [employer] plan of care Outcome: Ongoing * Plan of Care - Ralph Shfaer DO - 05/12/2024 4:10 PM EST Chart [...] Joao Shafer DO Nephrology Fellow PGY-5 [facility] Pager [phone] * Plan of Care - Javed Sanchez [...] pharyngeal swallow function to most appropriately guide SUPERVISOR [employer]KE [employer] plan of care Outcome: Ongoing * Plan [...] of ointment only, then reapply. Do not "scrub" ointment off skin, it is designed to stick to raw areas and protect. Order in Workday # [id number] Supplied on Unit Bed Surface: Standard mattress [...] 5.0 g/dL Final No results found for: "PREALBUMIN" Wound Documentation: 05/11/24 1008 Wound Dermatitis 05/10/242199 edema associated Lower;Right Abdomen Date First Assessed/Time First Assessed: 05/10/242199 Primary Wound Type: Dermatitis Present on Original Admission: (c) No Wound #: 1 Secondary Wound Type: edema associated Wound Location Orientation: Lower;Right Location: Abdomen Wound Image Dressing Status Changed/New;Dry;Intact Closure None Assessment Moist;Star;Subcutaneous Fat;Edema Laura-Wound Assessment Blanchable;Dry;Ecchymotic;Edema Wound Length (cm) [...] notified of assessment and plan. Please page #[phone] or reconsult with any further needs. Analia [...] T 98.3; R 17. Not symptomatic. Says: "I'm fine" Ailyn Benitez RN * Nursing Notes - Jeff Liao RN - 05/10/2024 10:00 PM EST On admission to [facility], from SICU a dual RN initial assessment [...] Medicine Transfer Note Patient: Mari Lopez, 1940, [id number] Physician: Vy Curry MD, PGY1, GM8 service [...] Macrocytic anemia Acute anemia likely due to COMMISSARY PRODUCTION SUPERVISOR in the setting of acute illness and [...] line since removed. - Followings Dr. Gilmore (environmental project manager) every 6 months - Nephrology consulted, appreciate [...] Code Status: Full Code Disposition: Transferred to [facility], will likely go to [facility] when medically cleared Vy Curry MD Internal Medicine-Pediatrics PGY-1 [facility] 05/10/24 Hospital Course: On 05/01/24 EMS transferred patient to [facility] and then she became non responsiveand hypotensive requiring norepinephrine. EEG noted GPDs and neurology was consulted and reviewed EEG who believed it met criteria status epilepticus. Patient was transferred to [facility] on 05/04 for further neurological medical management. She was admitted to the MICU for critical care management. Per H&P: The patient initially presented to the [facility] ED 05/01/24 with AMS found to havesevere metabolic derangements (pH 7.0, acute renal failure with uremia, hyperkalemia, acidosis). She was intubated, initiated on broad spectrum antibiotics, and placed on vasopressors after inadequate response to 30 cc/kg IVF resuscitation. CTH on admission reportedly normal (reports not available or included in transfer paperwork, [facility] radiology contacted to push images). An [...] ileus. * Treatment Plan - Pratik Ennis, BUSINESS OFFICE TECHNOLOGY INSTRUCTOR-[facility] - 05/10/2024 11:15 AM EST MICU CAREY [...] anemia - Acute anemia likely due to COMMISSARY PRODUCTION SUPERVISOR in the setting of acute illness and [...] a recent baseline - Followings Dr. Gilmore (environmental project manager) every 6 months - Nephrology consulted - HD 05/06 for clearance, 5 hours PIRRT in the morning of 05/07/24 and stopped d/t filter clot. HD line since removed - BALA dupplex done given large clot pulled out [...] TADEO. On 05/01/24 EMS transferred patient to [facility] and then she became non responsive and hypotensive requiring norepinephrine. EEG noted Gpds and neurology was consulted and reviewed EEG and met criteria status epilepticus. Patient was transferred to [facility] on 05/04 for further neurological [...] C) Resp 20 Ht 1.549 m (5' 1") Wt 114.2 kg (251 lb 12.3oz) SpO2 [...] been edited to reflect their recommendations. Connor Raymon [facility] pager [phone] MICU CAREY Pager numbers [phone] "MICU SHOE" pager [phone] A-H "[facility]ie ICU" pager [phone] "JMICU SCARLET" pager [phone] "JMICU LOPEZ" pager [phone] * Plan of Care - Lamonte Hogan [...] anemia - Acute anemia likely due to COMMISSARY PRODUCTION SUPERVISOR in the setting of acute illness and [...] 6 months ago - Followings Dr. Gilmore (environmental project manager) every 6 months - Nephrology consulted - [...] TADEO. On 05/01/24 EMS transferred patient to [facility] and then she became non responsive and hypotensive requiring norepinephrine. EEG noted Gpds and neurology was consulted and reviewed EEG and met criteria status epilepticus. Patient was transferred to [facility] on 05/04 for further neurological [...] C) Resp 14 Ht 1.549 m (5' 1") Wt 114.2 kg (251 lb 12.3 oz) [...] edited to reflect their recommendations. Connor Ennis APRN-MRI MANAGER pager [phone] MICU CAREY Pager numbers [phone] "MICU SHOE" pager [phone] A-H "[facility]" pager [phone] "JMICU SCARLET" pager [phone] "JMICU LOPEZ" pager [phone] * Plan of Care - Fouzia Hernández, [...] Ongoing * Plan of Care - Katina Murillo, OT - 05/09/2024 10:52 AM EST Problem: [...] Progressing * Treatment Plan - Karrie Sims APRN-MRI MANAGER - 05/08/2024 2:12 PM EST ICU PLAN [...] person. On 05/01/24 EMS transferred patient to [facility] and then was non responsive and hypotensive requiring norepinephrine. EEG noted Gpds and neurology was consulted and reviewed EEG and met criteria status epilepticus. Patient was transferred to [facility] on 05/04 for further neurological [...] anemia - Acute anemia likely due to COMMISSARY PRODUCTION SUPERVISOR in the setting of acute illness and [...] . * Treatment Plan - Karrie Sims APRN-MRI MANAGER - 05/07/2024 8:28 AM EST ICU PLAN [...] person. On 05/01/24 EMS transferred patient to [facility] and then was non responsive and hypotensive requiring norepinephrine. EEG noted Gpds and neurology was consulted and reviewed EEG and met criteria status epilepticus. Patient was transferred to [facility] on 05/04 for further neurological medical management. She was admitted to the MICU for critical care management (See H&P for full admit details and PMH) Last 24 Hours Brain MRI last night. PIRRT started post MRI and clotted off 5 hours after PIRRT. Started propofol given frequent coughing and interfering with COMMISSARY PRODUCTION SUPERVISOR. Received blood transfusion for acute hemoglobin drop. Passed SBT this morning, however, mental status remains poor Plan - Resume subcutaneous heparin given no active bleeding - Discontinue acyclovir given negative LP culture - Change ceftriaxone to non MEDICATION TECH coverage - Discontinue iHD given remained clotting [...] Piggyback:46.1] Out: 753 [Urine:753] WBC/Hgb/Hct/Plts: 16.89/8.5/27.3/73 (05/07 0820-05/07 1149) Na/K+/Phos/Mg/Ca: 137/3.6/3.2/1.8/-- (05/07 713) Bun/Creat/Cl/CO2/Glucose: 24/2.11/106/24/88 [...] on Chronic anemia - Likely due to COMMISSARY PRODUCTION SUPERVISOR in the setting of acute illness - [...] 05/04 at OSH -CVC: 05/04 CVC Necessity: COMMISSARY PRODUCTION SUPERVISOR -Do: 05/04 -NG/OG tube: 05/04 The above plan was discussed on multidisciplinary rounds. I have consulted with Dr. Pratik Young MD regarding the plan of care, including medications. The above note reflects the attending's recommendations. CHRISTINE Armas * Plan of Care - Harish Parry MD - 05/07/2024 1:02 AM EST Patient is coughing frequently which is disrupting the ability to proceed with COMMISSARY PRODUCTION SUPERVISOR due to pressures. Given the need for COMMISSARY PRODUCTION SUPERVISOR for clearance post MRI contrast, we will sedate with propofol overnight to suppress cough to allow for clearance and re-evaluate in the AM. Will put her vent back on a rate aswell. Harish Parry MD - PGY-3 Internal Medicine Pager #[phone] * Plan of Care - Josefina Cary [...] Negative Hepatitis B Surface Antigen Resulted From [facility] lab Date Hepatitis B Surface Antigen Status [...] person. On 05/01/24 EMS transferred patient to [facility] and then was non responsive and hypotensive requiring norepinephrine. EEG noted Gpds and neurology was consulted and reviewed EEG and met criteria status epilepticus. Patient was transferred to [facility] on 05/04 for further neurological [...] WBC/Hgb/Hct/Plts: 19.33/7.1/22.9/90 (05/06 0031) Na/K+/Phos/Mg/Ca: 137/4.1/5.2/2.2/-- (05/06 000) Bun/Creat/Cl/CO2/Glucose: 52/3.60/107/21/90 (05/06 6) Last 24 hours [...] 05/04 at OSH -CVC: 05/04 CVC Necessity: COMMISSARY PRODUCTION SUPERVISOR -Do: 05/04 -NG/OG tube: 05/04 The above plan was discussed on multidisciplinary rounds. I have consulted with Dr. Pratik Young MD regarding the plan of care, including medications. The above note reflects the attending's recommendations. CHRISTINE Armas * (ACP) Advance Care Planning - LOUIS Beckett - 05/05/2024 1:44 PM EST SW obtained copy of patient's HCPOA and Living Will documents. HCPOA # 1: Gonzalo Lopez (son) [phone] HCPOA # 2: Alex Donaldson (friend) [phone] SAMIR will scan these legal documents into the chart and update the demographic sheet. USAMA Beckett LISW [address] [place] [address] Cleaning And Maintenance Worker [phone] Available on secure chat * Research Note - Alfred Us RCP - 05/05/2024 11:06 AM EST OPTI- Oxygen Research Note Patient is enrolled in the OPTI - Oxygen Clinical Trial. Completed and reviewed ABG. Arterial Blood Gas Saturation: Lab Results Component Value Date/Time [id number] 98 05/05/2024 05:13 AM SpO2 on the patient monitor at the time ABG was drawn = 100 %. Decision tree: If SaO2 < SpO2 by 1-2% or SaO2 > SpO2 within 5% = Conservative O2 group If SaO2 < SpO2 by 3-5% = Boosted/[place] O2 group If SaO2 and SpO2 differs [...] Progressing * Treatment Plan - Oralia Mary APRN-MRI MANAGER - 05/05/2024 7:47 AM EST ICU PLAN [...] to person.on 05/01/24 EMS transferred patient to [facility] and then was non responsive and hypotensive requiring norepinephrine. EEG noted Gpds and neurology was consulted and reviewed EEG and met criteria status epilepticus. Patient was transferred to [facility] on 05/04 for further neurological [...] WBC/Hgb/Hct/Plts: 16.19/7.9/24.3/83 (05/05 0010) Na/K+/Phos/Mg/Ca: 136/4.2/3.8/2.2/-- (05/05 903-05/05 1301) Bun/Creat/Cl/CO2/Glucose: 51/3.42/105/22/88 (05/05 903) Last 24 hours imagin/30 cEEG no seizures [...] the attending's recommendations. CHRISTINE Braun DNP Pager [phone] [facility] History of Present illness Narrative* Rebeca Gillespie - 05/18/2024 3:02 PM EST 05/18/2024 [facility] cancelled transport, changed to [facility] at 4pm. Informed Brisa BATES ofchange. JANA Lazo Chemic Mangler Shading Painter [phone] * JANA Byrne - 05/18/2024 2:15 PM EST Social Work Final Discharge Plan and Transportation Discharge Disposition: Inpatient Rehab Facility Community Agency Name(s) For Handoff: [facility] Name For Handoff: [facility] Phone For Handoff: Fax For Handoff: Selected Continued Care - Admitted Since 05/04/2024 No services have been selected for the patient. Transportation Transport Request Mode of Transfer: [facility] Name of Discharge Transport Company: [employer] Discharge Transport ETA: 05/18/2024 @ 1630 Patient medically stable for discharge per physician/medical team. Transportation arranged as listed above. Patient will discharge to [facility]. Facility, Patient/Family, Bedside RN, CCM, and medical team are aware and agreeable to transportation time. Social work wi ll remain available to assist as needed. JANA Suazo Waiter/Waitress Third Class Can be reached by secure chat. * Kin Goodwin PT - 05/18/2024 11:50 AM EST Acute Physical Therapy Treatment Prior Gross Functional Mobility: Current AM-PAC score(s): CURRENT AM-PAC Mobility Raw Score: 7 Based on the above AM-PAC score(s) and PT clinical judgment, patient is a good candidate for discharge to Shelter Facility Barriers to discharge home: Patient needs [...] per pt's request Mobility Assessment/Intervention: Rolling/Turning Mobility [place] Level: Rolling/Turning: maximum assist (25% patient effort) Physical Assist: Rolling/Turnin person assist Bed Features/Set-up: Rolling/Turning: Flat, Friction reducing device Skilled Rationale: Positioning, Sequencing, Hand placement Skilled Intervention/Details: Rolling/Turning: rolling both side for positioning and pressure relieft Scooting Bridging Mobility [place] Level: Scooting/Bridging: dependent (less than 25% patient effort) Physical Assist: Scooting/Bridgin person assist Bed Features/Set-up: Scooting/Bridging: Flat, Friction reducing device Skilled Rationale: Sequencing, Positioning, Hand placement Skilled Intervention/Details: Scooting/Bridging: boost hob for optimal positioning Transfer Assessment/Intervention: Sit to Stand Transfer [place] Level: Sit->Stand: not tested Gait/Functional Mobility Assessment/Intervention: Gait Assessment [place] Level: Gait: unable to assess Stairs Assessment/Intervention: Outcome Score(s): CURRENT [facility] Basic Mobility Inpatient Short Form Turning over in bed: 2 - A Lot of Assistance Moving from lying on back to sittin - Total Assistance Moving to and from bed to chair: 1 - Total Assistance Sitting/standing from chair: 1 - Total Assistance Walk in hospital room: 1 - Total Assistance Climbing 3-5 steps with a railin - Total Assistance CURRENT [facility] Mobility Raw Score: 7 CURRENT [facility] Mobility Functional Limitation: 92.36% Impaired [...] skilled care performed Assisted by during session: GIFTED PROGRAM TEACHER PPE used during patient interaction: gloves Patient [...] Transportation for discharge arranged Mode of Transfer: [facility] Name of Discharge Transport Company: [employer] Discharge Transport ETA: 05/18/2024 @ 1630 Pick-up from [id number] 0933/A Destination [address] [place] [address] JANA Lazo Chemic Mangler Shading Painter [phone] * Javed Sanchez OT - 05/18/2024 7:50 AM EST Acute Occupational Therapy Treatment Prior Gross Functional Mobility: Current AM-PAC score(s): CURRENT AM-PAC Activity Raw Score: 10 Based on the above AM-PAC score(s), and OT clinical judgment, discharge destination recommendation is: Shelter Facility Barriers to discharge home: Patient needs [...] bed level due to the need for GIFTED PROGRAM TEACHER vitals,meds, and therapy Scooting Bridging Mobility [place] Level: Scooting/Bridging: dependent (less than 25% patient effort) Physical Assist: Scooting/Bridgin person assist Bed Features/Set-up: Scooting/Bridging: Head of bed elevated, Friction reducing device Skilled Rationale: Positioning, Verbal cues, Initiation and execution of task Skilled Intervention/Details: Scooting/Bridging: x1 to HOB for improved positioning for feeding Functional Mobility: Wheelchair Assessment Patient currently uses wheelchair?: No CURRENT [facility] Daily Activity Inpatient Short Form Putting on/Taking Off Lower Body Clothin - Total Assistance Bathin - Total Assistance Toiletin - Total Assistance Putting on/Taking Off Upper Body Clothin - A Lot of Assistance Groomin - A Lot of Assistance Eatin - A Little Assistance CURRENT [facility] Activity Raw Score: 10 CURRENT [facility] Activity Functional Limitation/Modifier: 74.70% Currently [...] Upon arrival pt supine in bed wiht GIFTED PROGRAM TEACHER taking vitals but agreeable to skilled therapy requiring increased cues for safety, orientation, and attention span. Pt participating in positioning for feedingat bed level and BUE exercises this date. Patient Instruction/Education this session: Learners: Patient Education provided: Bed mobility, Handout provided and reviewed, Home exercise program Plan for next session: EOB Acute OT Goals Plan of Care by Javed Sanhcez OT at 05/18/2024 7:50 AM Version 1 [...] Therapeutic Activity Time Entry: 8 Treating Therapist: Javde Sanchez OT Additional Details: OT Co-Eval/Treatment Information Co-evaluation/co-treatment performed?: No simultaneous skilled care performed Assisted by during session: GIFTED PROGRAM TEACHER PPE used during patient interaction: gloves Patient [...] Medicine Progress Note Patient: Mari Lopez, 1940, [id number] Physician: Leslie Peterson MD, GM8 service Subjective: [...] MICU for status epilepticus now transfered to [facility]. Daily Updates: - Delirium overnight, spaced vitals to q4h while awake - MBS today showing aspiration, following up SUPERVISOR SMOKE CONTROL recommendations - Will discuss with family results of MBS Dysphagia FEES with SUPERVISOR SMOKE CONTROL 2 with some concerns of aspiration possibly related to NGT and ongoing laryngeal edema. - NGT in place - Nepro at goal 35 cc/hr - MBS today showing aspiration - Following up with SUPERVISOR SMOKE CONTROL final recommendations - Will discuss GOC with family, if NG in line with GOC will require a different facility JOSE on CKD stage 4, non-oliguric JOSE likely due to ischemic and septic ATN due to septic shock requiring COMMISSARY PRODUCTION SUPERVISOR this admission. Creatinine stable - Followings Dr. Gilmore (environmental project manager) every 6 months Acute blood loss on chronic anemia, stable Macrocytic anemia Acute anemia likely due to COMMISSARY PRODUCTION SUPERVISOR in the setting of acute illness and anemia of chronic disease 2/2 CKD - No S/S of active bleeding - iron studies normal - Transfuse goal Hgb > 7 Acute provoked DVT in the left internal jugular vein 2/2 CVC placement, line since removed - Eliquis [...] Code Status: Full Code Disposition: Transferred to [facility], will likely go to [facility] when medically cleared Discussed with team and attending on rounds. Leslie Peterson MD 05/17/24 Hospital Course: On 05/01/24 EMS transferred patient to [facility] and then she became non responsiveand hypotensive requiring norepinephrine. EEG noted GPDs and neurology was consulted and reviewed EEG who believed it met criteria status epilepticus. Patient was transferred to [facility] on 05/04 for further neurological medical management. She was admitted to the MICU for critical care management. Per H&P: The patient initially presented to the [facility] ED 05/01/24 with AMS found to havesevere [...] comorbidity Essential hypertension Nicol Judge MD, FACP Rotating Equipment Specialist of Clinical Medicine General Internal Medicine * [...] continues to develop Plan for MBS with SUPERVISOR SMOKE CONTROL 05/17 [facility] will not accept with DHT, would require PEG for enteral nutrition. Discharge pending medical readiness Will continue to follow for discharge planning and care coordination. Josefina Manning RN, BSN Ase Certified Technician Available by Secure Chat or Qgenda * Leslie Peterson MD - 05/16/2024 4:03 PM EST Internal Medicine Progress Note Patient: Mari Lopez, 1940, [id number] Physician: Leslie Peterson MD, GM8 service Subjective: NAEO. This afternoon seen after MBS. Feels well, and improved from yesterday. Tolerated the MBS well, feels that nothing "went down the wrong pipe". Has not ambulated today, cannot recall the last time she ambulated. Has no fevers, chills, SOB, cough, body aches. Assessment/Plan: Mari Lopez is a 83 y.o. female HTN, hypoparathyroidism, hypothyroidism, BAYRON, gastric bypass (2003), CKD stage 4, HFpEF, and TDAEO. Initially admitted to MICU for status epilepticus now transfered to [facility]. Daily Updates: - Feels well overall - Continues to have good UOP, chem grossly stable - Continue IV diuresis today - Follow up results of MBS today - Dispo to [facility] facility in [place] once medically stable -- facility may not [...] line since removed. - Followings Dr. Gilmore (environmental project manager) every 6 months - Nephrology consulted, appreciate [...] tube feeds at goal - FEES with SUPERVISOR SMOKE CONTROL 05/13 with some concerns of aspiration possibly [...] Macrocytic anemia Acute anemia likely due to COMMISSARY PRODUCTION SUPERVISOR in the setting of acute illness and [...] Code Status: Full Code Disposition: Transferred to [facility], will likely go to [facility] when medically cleared Discussed with team and attending on rounds. Leslie Peterson MD 05/16/24 Hospital Course: On 05/01/24 EMS transferred patient to [facility] and then she became non responsiveand hypotensive requiring norepinephrine. EEG noted GPDs and neurology was consulted and reviewed EEG who believed it met criteria status epilepticus. Patient was transferred to [facility] on 05/04 for further neurological medical management. She was admitted to the MICU for critical care management. Per H&P: The patient initially presented to the [facility] ED 05/01/24 with AMS found to havesevere metabolic derangements (pH 7.0, acute renal failure with uremia, hyperkalemia, acidosis). She was intubated, initiated on broad spectrum antibiotics, and placed on vasopressors after inadequate response to 30 cc/kg IVF resuscitation. CTH on admission reportedly normal (reports not available or included in transfer paperwork, [facility] radiology contacted to push images). An [...] comorbidity Essential hypertension Nicol Judge MD, FACP Rotating Equipment Specialist of Clinical Medicine General Internal Medicine * AZAEL Blas - 05/16/2024 11:00 AM EST Speech Language Pathology Attempt Note 05/17/2024 Attempted to complete MBS in [facility] suite. Unable to complete study d/t patient positioning/bodyhabitus. Plan for MBS tomorrow in AZAEL Garcia Time In: 1100 Time Out: 1115 Total [...] of Care: 1. Diet advancement pending MBS/per SUPERVISOR SMOKE CONTROL 2. Continue current enteral nutrition regimen: Nepro 1.8 @ 35 mL/hr- provides 840mL volume, 1512kcal, 68g pro, 134g CHO, 611mL free H2O - increase to 1pkt Prosource TF BID - provides additional 80kcal, 22g pro - at minimum recommend 30mL flushes q4 hrs to maintain tube patency 3. If long term care phlebotomist enteral nutrition is anticipated, recommend transitioning to [...] transferred to the floor. Initially presented to [facility] ED 05/01 with AMS. Found to have [...] not know UBW though reported wt gain SENIOR OPERATIONS MANAGER. Denied any changes in appetite/intake. Weight records [...] hrs Anthropometrics: Admit Height: 154.9 cm (5' 1") Admit Weight: 116.3 kg (256 lb 6.3 [...] of 25, 60kg Estimated Energy Requirements (kcal/day): 1915-5066 kcal/day (25-30 kcal/kg) Estimated Protein Requirements (g/day): [...] Nazanin Kaye, MPH, RD, LD, CNSC Pager #[phone] * Heladio Prather MD - 05/15/2024 11:49 AM EST Internal Medicine Progress Note Patient: Mari Lopez, 1940, [id number] Physician: Heladio Prather MD, PGY2, GM8 service [...] MICU for status epilepticus now transfered to [facility]. Daily Updates: - Mildly elevated temperature, Tmax 100.8F this morning - Flu/COVID negative - WBC stable, patient without acute symptoms, feeling well overall - Continues to have good UOP, chem grossly stable - Continue IV diuresis today - Per SUPERVISOR SMOKE CONTROL - plan for NG to be switched for DHT, MBS on Thursday, 05/16 - Dispo to [facility] facility in [place] once medically stable -- facility may not [...] line since removed. - Followings Dr. Gilmore (environmental project manager) every 6 months - Nephrology consulted, appreciate recs regarding ongoing diuresis: -- Resume IV Lasix 20mg daily 05/13 given stable chemistry - Decrease FWF to 100cc q4h 05/14 given improved hypernatremia - LUE dupplex negative for DVT 05/11 - Daily chem Elevated temperature Leukocytosis, stable Increasing WBC 8 now stable. Patient without localizing symptoms, reports [...] tube feeds at goal - FEES with SUPERVISOR SMOKE CONTROL 05/13 with some concerns of aspiration possibly [...] Macrocytic anemia Acute anemia likely due to COMMISSARY PRODUCTION SUPERVISOR in the setting of acute illness and [...] Code Status: Full Code Disposition: Transferred to [facility], will likely go to [facility] when medically cleared Discussed with team and attending on rounds. Heladio Prather MD 05/15/24 Hospital Course: On 05/01/24 EMS transferred patient to [facility] and then she became non responsiveand hypotensive requiring norepinephrine. EEG noted GPDs and neurology was consulted and reviewed EEG who believed it met criteria status epilepticus. Patient was transferred to [facility] on 05/04 for further neurological medical management. She was admitted to the MICU for critical care management. Per H&P: The patient initially presented to the [facility] ED 05/01/24 with AMS found to havesevere [...] coli UTI, provoked DVT, and JOSE requiring COMMISSARY PRODUCTION SUPERVISOR who was transitioned to the floor. The [...] GDMT when hemodynamics allow Kevon Lyon MD Clinical Dermatologist, Clinical Division of General Internal Medicine * LOUIS Richardson - 05/14/2024 11:40 AM EST Placement Plan Expected Discharge Date: 05/17/2024 Referred Level of Care: IPR Barriers: med readiness; ability for IPR to admit w/ DHT; out-of-town transportation Current Referrals and Status 1. [facility] - accepted/reserved Per MD, current [...] stated they will discuss with their medical laboratory manager on Thursday and let SW know if patient is able to admit to their facility with a DHT. SW updated MD. SW will complete handoff for the floor/cover CM/SW for continuity of care. USAMA [place], COOK [employer]ACO-S Medical Social Work Please note that I am a float SW and may not be covering the same unit each day. Please reach out to the floor/unit SW for additional needs/concerns. Main CM/SW Office (Thursday-Thursday, 8:00am-4:30pm): [phone] For any other coverage needs, please consult Shant under Care Management. * Heladio Prather MD - 05/14/2024 10:39 AM EST Internal Medicine Progress Note Patient: Mari Lopez, 1940, [id number] Physician: Heladio Prather MD, PGY2, GM8 service [...] MICU for status epilepticus now transfered to [facility]. Daily Updates: - Net positive 1.7L over last 24 hours - Chemistry largely stable, improved hypernatremia - Will decrease FWF to 100cc q4h - Plan for IV Lasix 20mg x1 today, monitor I/O - Per SUPERVISOR SMOKE CONTROL - plan for NG to be switched for DHT, MBS on Thursday, 05/16 - Dispo to [facility] facility in [place] once medically stable -- facility may not [...] line since removed. - Followings Dr. Gilmore (environmental project manager) every 6 months - Nephrology consulted, appreciate [...] tube feeds at goal - FEES with SUPERVISOR SMOKE CONTROL 05/13 with some concerns of aspiration possibly [...] Macrocytic anemia Acute anemia likely due to COMMISSARY PRODUCTION SUPERVISOR in the setting of acute illness and [...] Code Status: Full Code Disposition: Transferred to [facility], will likely go to [facility] when medically cleared Discussed with team and attending on rounds. Heladio Prather MD 05/14/24 Hospital Course: On 05/01/24 EMS transferred patient to [facility] and then she became non responsiveand hypotensive requiring norepinephrine. EEG noted GPDs and neurology was consulted and reviewed EEG who believed it met criteria status epilepticus. Patient was transferred to [facility] on 05/04 for further neurological medical management. She was admitted to the MICU for critical care management. Per H&P: The patient initially presented to the [facility] ED 05/01/24 with AMS found to havesevere [...] GDMT when hemodynamics allow Kevon Lyon MD Clinical Dermatologist, Clinical Division of General Internal Medicine * Ralph Shafer, - 05/13/2024 2:09 PM EST NEPHROLOGY INPATIENT [...] lymphedema who presented as a [facility] after she presented with AMS and found to have status epilepticus. Hospital course c/b acute respiratory failure requiring intubation and JOSE requiring COMMISSARY PRODUCTION SUPERVISOR for which nephrology is consulted. Impression: Oliguric JOSE on CKD 4 - improved Recent b/l Cr ~1.5-1.8 JOSE likely due to ischemic and septic ATN due to septic shock S/p COMMISSARY PRODUCTION SUPERVISOR now monitoring off - line removed Azotemia [...] monitor sodium daily No urgent indication for COMMISSARY PRODUCTION SUPERVISOR - line was already removed Will continue [...] page the on- call Neph fellow on [employer]. Jaoo Shafer DO Clinical Nephrology Fellow, PGY-5 Pager [phone] OBJECTIVE Vitals: BP 145/69 (BP Location: Right leg, BP Position: Lying) Pulse 71 Temp 97.8 F (36.6 C) (Oral) Resp 18 Ht 1.651 m (5' 5") Wt 108.9 kg (240 lb) SpO2 94% [...] Will continue to follow. Evans Cornejo MD [id number] hospitality recruiter Division of Nephrology * Heladio Prather MD - 05/13/2024 1:38 PM EST Internal Medicine Progress Note Patient: Mari Lopez, 1940, [id number] Physician: Heladio Prather MD, PGY2, GM8 service Subjective: Pt seen and evaluated this morning at bedside. She reports that she tolerated ice chips well this morning. Complaining of sore throat but reports topical spray is helping. Eager to try to get NGT removed. Understands plan for FEES this afternoon with SUPERVISOR SMOKE CONTROL team. Assessment/Plan: Mari Lopez is a 83 y.o. female HTN, hypoparathyroidism, hypothyroidism, BAYRON, gastric bypass (2003), CKD stage 4, HFpEF, and TADEO. Initially admitted to MICU for status epilepticus now transfered to [facility]. Daily Updates: - Net positive 144mL over last 24 hours - Chemistry largely stable - Plan for IV Lasix 20mg x1 today - Pending FEES with SUPERVISOR SMOKE CONTROL - plan to transition diet and advance as tolerated if able - Dispo to [facility] facility in [place] once medically stable JOSE on CKD stage [...] line since removed. - Followings Dr. Gilmore (environmental project manager) every 6 months - Nephrology consulted, appreciate [...] tube feeds at goal - FEES with SUPERVISOR SMOKE CONTROL 05/13 to determine if NGT can be [...] Macrocytic anemia Acute anemia likely due to COMMISSARY PRODUCTION SUPERVISOR in the setting of acute illness and [...] Code Status: Full Code Disposition: Transferred to [facility], will likely go to [facility] when medically cleared Discussed with team and attending on rounds. Heladio Prather MD 05/13/24 Hospital Course: On 05/01/24 EMS transferred patient to [facility] and then she became non responsiveand hypotensive requiring norepinephrine. EEG noted GPDs and neurology was consulted and reviewed EEG who believed it met criteria status epilepticus. Patient was transferred to [facility] on 05/04 for further neurological medical management. She was admitted to the MICU for critical care management. Per H&P: The patient initially presented to the [facility] ED 05/01/24 with AMS found to havesevere [...] the floor on 05/09. Objective: Vitals: 05/13/24 112 BP: 145/69 Pulse: 71 Resp: 18 Temp: 97.8 F (36.6 C) SpO2: 94% O2 Device: room air (05/13/241120) Flow (L/min): 1 (05/10/24 0000) Gen: chronically [...] GDMT when hemodynamics allow Kevon Lyon MD Clinical Dermatologist, Clinical Division of General Internal Medicine * JANA Byrne - 05/13/2024 12:48 PM EST Placement Plan Expected Discharge Date: 05/13/2024 Referred Level of Care: IPR Barriers: Medical Readiness and Transport Current Referrals and Status 1. [facility]- Reserved Patient is not medically ready at this time. Patient does not need precert. JANA Suazo Waiter/Waitress Third Class Can be reached by secure chat. * AZAEL Carvalho - 05/13/2024 10:30 AM EST Acute Care Speech Language Pathology Treatment Diet Recommendations: Recommended Method of Nutrition: Short-term alternate nutrition Discharge Recommendations: Based on the below outcome measures/assessment score(s) and SUPERVISOR SMOKE CONTROL clinicaljudgment, discharge destination recommendation is: Deferred to PT/OT recomendations related to mobility Supporting factors for discharge setting: Impaired swallow function limiting nutritional status andsafety with oral intake Acute SUPERVISOR SMOKE CONTROL Outcomes Tracking Communicate basic wants and needs?: [...] Ok for ice chips with RN supervision. SUPERVISOR SMOKE CONTROL will continue to follow for ongoing dysphagia management. Subjective: Mari was seen at bedside, alert and complaining of back pain. SUPERVISOR SMOKE CONTROL at bedside to determine readiness for FEES in the setting of secretion management. Pain: General Pain Documentation (Adult, OB, Peds) Presence of Pain: denies pain/discomfort Presence of Pain Score (Auto-calculated): 0 Precautions: Patient Safety Communication Prior to Visit: Nursing Lines/Tubes/Drains (Rehab Status): Telemetry, Tube feed Existing Precautions/Restrictions: fall (BENITA; HOB at least 30 degrees) Respiratory Status: O2 Sat (%): 94 % (05/13 1121) O2 Device: room air (05/13 1121) Patient Vitals for the past 2 hrs: Temp Temp src Pulse Heart Rate Source Resp BP MAP (mmHg) BP Method BP Location BP Position SpO2 O2 Device 05/13/24 1121 97.8 F (36.6 C) Oral 71 Monitor 18 145/69 99 mmHg Automatic Right leg Lying 94 % roomair Acute SUPERVISOR SMOKE CONTROL Goals Plan of Care by AZAEL Carvalho at 05/13/2024 10:30 AM Version 1 of 1 Problem: Dysphagia Goal: FEES - Patient will participate in Fiberoptic Endoscopic Evaluation of Swallowing (FEES) study to objectively assess pharyngeal swallow function to most appropriately guide SUPERVISOR SMOKE CONTROL plan of care Outcome: Ongoing Patient demonstrated [...] Plan for next session: Ongoing dysphagia interventions SUPERVISOR SMOKE CONTROL Outcomes: Functional Oral Intake Score: 1 Patient Education/Instruction Learners: Patient Education provided: Dysphagia risk factors, Dysphagia recommendations/impressions Teaching method: Verbal Education/Instruction Learner response: Returns demonstration, Needs review Learning preferences: Auditory Learning considerations: Cognition Speech Language Pathologist: AZAEL Carvalho, [facility] Time In: 1030 Time Out: 1050 Total Visit Time: 20 minutes Total Treatment Time (skilled, billable minutes): 20 minutes Non-billable assistance during session: none Assisted by during session: no one PPE used during patient interaction: gloves Patient location/status at end of session: bed with head of bed elevated Patient alarms at end of session: bed alarm Needs in reach SUPERVISOR SMOKE CONTROL Evaluation and Treatment Time Swallowing Dysfunction Treatment 40694: 20 Upon discontinuation of Acute Care Speech [...] lymphedema who presented as a transfer from [facility] level of care after she presented with AMS and found to have status epilepticus. Hospital course c/b acute respiratory failure requiring intubation and JOSE requiring COMMISSARY PRODUCTION SUPERVISOR for which nephrology is consulted. Impression: Oliguric [...] 140 or lower No urgent indication for COMMISSARY PRODUCTION SUPERVISOR - line was already removed Accurate Is/Os [...] page the on- call Neph fellow on [email or web address]. Joao Shafer DO Clinical Nephrology Fellow, PGY-5 Pager [phone] OBJECTIVE Vitals: BP 113/71 (BP Location: Left arm, BP Position: Lying) Pulse 67 Temp 98.4 F (36.9 C) (Oral) Resp 18 Ht 1.651 m (5' 5") Wt 108.9 kg (240 lb) SpO2 93% [...] OT clinical judgment, discharge destination recommendation is: Shelter Facility Barriers to discharge home: Patient needs [...] present Location: RUE Mobility Assessment/Intervention: Rolling/Turning Mobility [place] Level: Rolling/Turning: maximum assist (25% patient effort) Physical Assist: Rolling/Turnin person assist Bed Features/Set-up: Rolling/Turning: Flat, Use of bed rail, Friction reducing device Skilled Rationale: Positioning, Sequencing, Hand placement, Verbal cues, Initiation and execution of task Skilled Intervention/Details: Rolling/Turning: x2 to R and L for positioning and toileting Scooting Bridging Mobility [place] Level: Scooting/Bridging: dependent (less than 25% patient effort) Physical Assist: Scooting/Bridgin person assist Bed Features/Set-up: Scooting/Bridging: Flat, Friction reducing device Skilled Rationale: Positioning, Sequencing, Hand placement, Verbal cues, Initiation and execution of task Skilled Intervention/Details: Scooting/Bridging: x1 to HOB CURRENT [facility] Daily Activity Inpatient Short Form Putting on/Taking Off Lower Body Clothin - Total Assistance Bathin - Total Assistance Toiletin - Total Assistance Putting on/Taking Off Upper Body Clothin - Total Assistance Groomin - A Lot of Assistance Eatin - Total Assistance CURRENT -[facility] Activity Raw Score: 7 CURRENT -[facility] Activity Functional Limitation/Modifier: 92.44% Currently Impaired in [...] on the below outcome measures/assessment score(s) and SUPERVISOR SMOKE CONTROL clinicaljudgment, discharge destination recommendation is: Pending instumental swallow assessment Acute SUPERVISOR SMOKE CONTROL Outcomes Tracking Communicate basic wants and needs?: [...] - now weaned to RA - CXR 2/2 without acute findings - PRN guaifenesin for cough ordered - Spot diuresis, goal net even to 500mL negative Acute blood loss on chronic anemia, stable Macrocytic anemia Acute anemia likely due to COMMISSARY PRODUCTION SUPERVISOR in the setting of acute illness and [...] line since removed. - Followings Dr. Gilmore (environmental project manager) every 6 months - Nephrology consulted, appreciate [...] lasix for goal even to -500mL Prior SUPERVISOR SMOKE CONTROL history: NA Current Method of Nutrition: Route [...] Modality: Amount: Ice Teaspoon x3 Thin Teaspoon, SUPERVISOR SMOKE CONTROL-fed, Straw x2 teaspoon, x1 straw sip Dysphagia- [...] with eyes closed and appearing to fatigue. [place] Swallow Screen: (administered by: DANISH) [place] Swallow Screening Screening Exclusion Criteria: NPO order for other medical/surgical reasons [place] Swallow Screening Result: postpone until no longer [...] allowance of ice chips following oral care. SUPERVISOR SMOKE CONTROL will continue to follow. Plan for next session: 05/12: good candidate; FEES Patient Education/Instruction Learners: Patient Education provided: Safety, Role of this discipline, Positioning, Dysphagia risk factors, Dysphagiarecommendations/impressions Teaching method: Verbal Education/Instruction Learner response: Applies knowledge Learning preferences: Auditory Learning considerations: Cognition Patient Instruction/Education comments: Patient educated regarding role of SUPERVISOR SMOKE CONTROL, impressions, instrumental assessments, importance of oral care Acute SUPERVISOR SMOKE CONTROL Goals Plan of Care by AZAEL Blas at 05/12/2024 9:30 AM Version 1 of 1 Problem: Dysphagia Goal: FEES - Patient will participate in Fiberoptic Endoscopic Evaluation of Swallowing (FEES) study to objectively assess pharyngeal swallow function to most appropriately guide SUPERVISOR SMOKE CONTROL plan of care Outcome: Ongoing Speech Language [...] of session: RN aware Needs in reach. SUPERVISOR SMOKE CONTROL Evaluation and Treatment Time Swallowing Eval 36160: 23 Upon discontinuation of Acute Care Speech Therapy Services or patient discharge from the hospital this note represents the current Speech Therapy Discharge Summary * Heladio Prather MD - 05/12/2024 7:43 AM EST Internal Medicine Progress Note Patient: Mari Lopez, 1940, [id number] Physician: Heladio Prather MD, PGY1, GM8 service [...] MICU for status epilepticus now transfered to [facility]. Daily Updates: - Improved hypernatremia - Will hold off on diuresis today given good UOP yesterday and improved labs without diuresis - SUPERVISOR SMOKE CONTROL consulted for swallow eval, recommend FEES - Pending FEES will plan to transition diet and advance as tolerated - Dispo to SNF per PT/OT recs (pt with room at [facility] facility) JOSE on CKD stage 4, non-oliguric JOSE [...] line since removed. - Followings Dr. Gilmore (environmental project manager) every 6 months - Nephrology consulted, appreciate [...] Macrocytic anemia Acute anemia likely due to COMMISSARY PRODUCTION SUPERVISOR in the setting of acute illness and [...] Code Status: Full Code Disposition: Transferred to [facility], will likely go to [facility] when medically cleared Discussed with team and attending on rounds. Heladio Prather MD 05/12/24 Hospital Course: On 05/01/24 EMS transferred patient to [facility] and then she became non responsiveand hypotensive requiring norepinephrine. EEG noted GPDs and neurology was consulted and reviewed EEG who believed it met criteria status epilepticus. Patient was transferred to [facility] on 05/04 for further neurological medical management. She was admitted to the MICU for critical care management. Per H&P: The patient initially presented to the [facility] ED 05/01/24 with AMS found to havesevere metabolic derangements (pH 7.0, acute renal failure with uremia, hyperkalemia, acidosis). She was intubated, initiated on broad spectrum antibiotics, and placed on vasopressors after inadequate response to 30 cc/kg IVF resuscitation. CTH on admission reportedly normal (reports not available or included in transfer paperwork, [facility] radiology contacted to push images). An [...] to the floor on 05/09. Objective: Vitals: 05/12/24 0431 BP: 130/84 Pulse: 68 Resp: 16 Temp: 97.3 F (36.3 C) SpO2: 95% O2 Device: room air (05/12/24 0431) Flow (L/min): 1 (05/10/24 0000) Gen: chronically [...] GDMT when hemodynamics allow Kevon Lyon MD Clinical Dermatologist, Clinical Division of General Internal Medicine * [...] lymphedema who presented as a [facility] after she presented with AMS and found to have status epilepticus. Hospital course c/b acute respiratory failure requiring intubation and JOSE requiring COMMISSARY PRODUCTION SUPERVISOR for which nephrology is consulted. Impression: Oliguric [...] K Replace Mag No urgent indication for COMMISSARY PRODUCTION SUPERVISOR Accurate Is/Os Avoid nephrotoxins as able These [...] page the on- call Neph fellow on [employer]. Joao Shafer DO Clinical Nephrology Fellow, PGY-5 Pager [phone] OBJECTIVE Vitals: BP 124/60 (BP Location: Right arm, BP Position: Lying) Pulse 76 Temp 97.8 F (36.6 C) (Oral) Resp 16 Ht 1.651 m (5' 5") Wt 108.9 kg (240 lb) SpO2 94% [...] water flushes as below. No need for COMMISSARY PRODUCTION SUPERVISOR. Will follow. Evans Cornejo MD [id number] hospitality recruiter Division of Nephrology * Adriana Lima, PT - 05/11/2024 10:40 AM EST Acute Physical Therapy Treatment Prior Gross Functional Mobility: independent Current AM-PAC score(s): CURRENT AM-PAC Mobility Raw Score: 6 Based on the above AM-PAC score(s) and PT clinical judgment, patient is a good candidate for discharge to Shelter Facility Barriers to discharge home: Patient needs [...] Level: Oriented to person, Oriented to place ("2002" despite cues) Following Commands: Follows one step [...] onset fatigue noted Mobility Assessment/Intervention: Rolling/Turning Mobility [place] Level: Rolling/Turning: dependent (less than 25% patient effort) Physical Assist: Rolling/Turnin person assist Bed Features/Set-up: Rolling/Turning: Flat, Friction reducing device Skilled Rationale: Verbal cues, Sequencing, Positioning, Technique of activity Skilled Intervention/Details: Rolling/Turning: bilateral rolling while performing laura-care; limited ability to facilitate with UEs Scooting Bridging Mobility [place] Level: Scooting/Bridging: dependent (less than 25% patient effort) Physical Assist: Scooting/Bridgin person assist Bed Features/Set-up: Scooting/Bridging: Flat, Friction reducing device Skilled Rationale: Positioning Supine to Sit Mobility [place] Level: Supine->Sit: dependent (less than 25% patient effort) Physical Assist: Supine->Sit: 2 person assist Bed Features/Set-up: Supine->Sit: Friction reducing device, Head of bed elevated Skilled Rationale: Verbal cues, Technique of activity Skilled Intervention/Details: Supine->Sit: limited ability to initiate with LEs or trunk Sit to Supine Mobility [place] Level: Sit->Supine: dependent (less than 25% patient effort) Physical Assist: Sit->Supine: 2 person assist Bed Features/Set-up: Sit->Supine: Flat Skilled Rationale: Positioning, Sequencing, Technique of activity Skilled Intervention/Details: Sit->Supine: completed return to supine with reverse log roll Transfer Assessment/Intervention: Sit to Stand Transfer [place] Level: Sit->Stand: not tested Outcome Score(s): CURRENT [facility] Basic Mobility Inpatient Short Form Turning over in bed: 1 - Total Assistance Moving from lying on back to sittin - Total Assistance Moving to and from bed to chair: 1 - Total Assistance Sitting/standing from chair: 1 - Total Assistance Walk in hospital room: 1 - Total Assistance Climbing 3-5 steps with a railin - Total Assistance CURRENT [facility] Mobility Raw Score: 6 CURRENT [facility] Mobility Functional Limitation: 100.00% Impaired [...] OT clinical judgment, discharge destination recommendation is: Shelter Facility Barriers to discharge home: Patient needs [...] positioning, Facilitate postural control, Technique of activity, [id number] assist Grooming Intervention/Details: Increased A due to [...] present Location: Generalized Mobility Assessment/Intervention: Rolling/Turning Mobility [place] Level: Rolling/Turning: dependent (less than 25% patient effort) Physical Assist: Rolling/Turnin person assist Bed Features/Set-up: Rolling/Turning: Flat, Friction reducing device Skilled Rationale: Positioning, Hand placement, Verbal cues, Initiation and execution of task Skilled Intervention/Details: Rolling/Turning: x2 to either side Scooting Bridging Mobility [place] Level: Scooting/Bridging: dependent (less than 25% patient effort) Physical Assist: Scooting/Bridgin person assist Bed Features/Set-up: Scooting/Bridging: Flat, Friction reducing device Skilled Rationale: Positioning, Verbal cues, Initiation and execution of task Skilled Intervention/Details: Scooting/Bridging: x1 to HOB Supine to Sit Mobility [place] Level: Supine->Sit: dependent (less than 25% patient effort) Physical Assist: Supine->Sit: 2 person assist Bed Features/Set-up: Supine->Sit: Head of bed elevated, Use of bed rail, Friction reducing device Skilled Rationale: Positioning, Sequencing, Hand placement, Verbal cues, Finding/maintaining midline positioning Skilled Intervention/Details: Supine->Sit: x1 R side EOB with increased time and A for safety due to weakness Sit to Supine Mobility [place] Level: Sit->Supine: dependent (less than 25% patient effort) Physical Assist: Sit->Supine: 2 person assist Bed Features/Set-up: Sit->Supine: Flat Skilled Rationale: Positioning, Sequencing, Hand placement, Verbal cues, Initiation and execution of task Skilled Intervention/Details: Sit->Supine: x1 back from R side EOB Transfer Assessment/Intervention: Sit to Stand Transfer [place] Level: Sit->Stand: unable to assess Functional Mobility: Wheelchair Assessment Patient currently uses wheelchair?: No CURRENT [facility] Daily Activity Inpatient Short Form Putting on/Taking Off Lower Body Clothin - Total Assistance Bathin - Total Assistance Toiletin - Total Assistance Putting on/Taking Off Upper Body Clothin - Total Assistance Groomin - A Lot of Assistance Eatin - Total Assistance CURRENT [facility] Activity Raw Score: 7 CURRENT -[facility] Activity Functional Limitation/Modifier: 92.44% Currently Impaired in [...] Medicine Progress Note Patient: Mari Lopez, 1940, [id number] Physician: Jamaal Khalil MD, PGY1, GM8 service [...] MICU for status epilepticus now transfered to [facility]. Today's Updates: - 10 beat run of VT, hypokalemic and hypomag, s/p repletion - Holding diuresis - Sore throat, given phenol spray - Increase her free water flushes to 200cc q4h - TTE ordered - SUPERVISOR SMOKE CONTROL consulted for speech and swallow eval, consider [...] Macrocytic anemia Acute anemia likely due to COMMISSARY PRODUCTION SUPERVISOR in the setting of acute illness and [...] line since removed. - Followings Dr. Gilmore (environmental project manager) every 6 months - Nephrology consulted, appreciate [...] Code Status: Full Code Disposition: Transferred to [facility], will likely go to [facility] when medically cleared Discussed with team and attending on rounds. Jamaal Khalil MD PGY1 [facility] 05/11/24 Hospital Course: On 05/01/24 EMS transferred patient to [facility] and then she became non responsiveand hypotensive requiring norepinephrine. EEG noted GPDs and neurology was consulted and reviewed EEG who believed it met criteria status epilepticus. Patient was transferred to [facility] on 05/04 for further neurological medical management. She was admitted to the MICU for critical care management. Per H&P: The patient initially presented to the [facility] ED 05/01/24 with AMS found to havesevere [...] SpO2: 95% O2 Device: room air (05/11/24 033) Flow (L/min): 1 (05/10/24 0000) Gen: chronically [...] GDMT when hemodynamics allow Kevon Lyon MD Clinical Dermatologist, Clinical Division of General Internal Medicine * Vy Hightower RN - 05/10/2024 3:22 PM EST Placement Plan Expected Discharge Date: 05/13/24 Referred Level of Care: IPR (per family request) Barriers: Medical readiness Current Referrals and Status 1. [facility] IPR (reserved) The HCPOAs communicated with Jo prior to sending the referral and pre- [...] their preference and pursue the IPR option. Vy aRymundo MSN, RN 10 MICU Clinical Ase Certified Technician (p) [phone] Available on secure chat * Vy Hightower RN - 05/10/2024 2:46 PM EST Reason for Consult: Discharge planning Consulted By: Medical team Level(s) of Care Discussed: SNF Patient and/or 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's Preferred Geographic Area for Discharge: [place] [id number] Patient and/or 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's Preference for Providers to Include? [facility] (preferred choice) 2. [facility] Patient and/or 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's Preference for Providers to Exclude? 1.N/A Patient and/or 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's Discussion: Discussed referral process with the patient and/or passenger relations representative. Patient and/or passenger relations representative isagreeable to have placement referral initiated. FAISAL spoke with Primary HCPOA, Gonzalo, and 1st Alternative HCPOA, Alex. She will need ambulance transportation per HCPOAs' request CM went to the patient's room to update, but she was sleeping and the bedside RN stated that she glenys bit confused. Vy Raymundo, MSN, RN 10 MICU Clinical Ase Certified Technician (p) [phone] Available on secure chat * Jhonatan Horton MD - 05/10/2024 11:53 AM EST Nephrology Inpatient Follow up Note Assessment: 83F with PMH of CKD 4, neurogenic bladder, HTN, obesity s/p gastric bypass, TADEO, COPD, HFpEF, hypothyroidism, DVT/PE, chronic lymphedema who presented as a transfer from [facility] level of care after she presented with AMS and found to have status epilepticus. Hospital course c/b acute respiratory failure requiring intubation and JOSE requiring COMMISSARY PRODUCTION SUPERVISOR for which nephrology is consulted. Oliguric JOSE on CKD 4 JOSE likely due to ischemic and septic ATN due to septic shock Acute respiratory failure, on mechanical ventilatoin UTI with E coli. Anemia Seizure disorder Acute encephalopathy Hypocalcemia with normal corrected calcium Hypovitaminosis D Plan/Recommendations: -no indications for COMMISSARY PRODUCTION SUPERVISOR today -would continue lasix -supportive care per [...] C) Resp 20 Ht 1.549 m (5' 1") Wt 114.2 kg (251 lb 12.3oz) SpO2 [...] 7.4 (L) 05/06/2024 ICA 4.07 (L) 05/09/2024 [id number] 17.6 (L) 05/05/2024 Lab Results Component Value [...] PHYSICIAN NOTE: Current Hospitalization: Admit Date: 05/04/2024 [facility] LOS: 6 days Interval History from [...] resp. rate 20, height 1.549 m (5' 1"), weight 114.2 kg (251 lb 12.3 oz), [...] lifestyle modifications. . Ronn Barahona MD, MSCI, [facility], ATSF avionics safety inspector Division of Pulmonary, Critical Care, and Sleep Medicine * Vy Hightower RN - 05/10/2024 10:28 AM EST Ase Certified Technician's Assessment and Summary: Overall Assessment: Improving respiratory failure. Ongoing neuro work up. Respiratory Status: On room air A) One intubation, extubated 05/08/24 Nutritional Support: [place] PT/OT Recommendations: SNF ([facility]) Barriers to Discharge: Medical readiness Following: Neurology, Nephrology Discharge Goals: CM Primary SNF. No discharge date Next Steps: Monitoring progress; will need SNF referral SANTINO Mo, RN 10 MICU Clinical Ase Certified Technician (p) [phone] Available on secure chat FYI: Reason for Admission: From OSH intubated and concern for seizures Prior to Admission: ADLs/IADLs (prior admission): Assisted Decision Making (prior admission): Independent DMEs: walker;rollator;shower seat;straight cane;stair lift;blood pressure monitor; incontinence supplies Summary: Lives at a house with roommate. * Ronn Barahona MD - 05/09/2024 1:38 PM EST CRITICAL CARE ATTENDING PHYSICIAN NOTE: Current Hospitalization: Admit Date: 05/04/2024 [facility] Hospital LOS: 5 days Interval History from [...] resp. rate 14, height 1.549 m (5' 1"), weight 114.2 kg (251 lb 12.3 oz), [...] . Ronn Barahona MD, MSCI, FCCM, ATSF avionics safety inspector Division of Pulmonary, Critical Care, and Sleep Medicine * Fouzia Hernández, PT - 05/09/2024 10:52 AM EST Acute Physical Therapy Evaluation Prior Gross Functional Mobility: Current AM-PAC score(s): CURRENT AM-PAC Mobility Raw Score: 6 Based on the above AM-PAC score(s) and PT clinical judgment, patient is a good candidate for discharge to Shelter Facility Barriers to discharge home: Patient needs [...] to tactile stimuli Mobility Assessment: Rolling/Turning Mobility [place]ill Level: Rolling/Turning: dependent (less than 25% patient effort) Physical Assist: Rolling/Turnin person assist Bed Features/Set-up: Rolling/Turning: Flat Skilled Rationale: Sequencing, Hand placement, Verbal cues, Technique of activity, Initiation and execution of task, Cues for increased safety Skilled Intervention/Details: Rolling/Turning: X1 to L/R sideylying to complete dependent pericare and pad exchange; limited to no initiation despite extensive cueing Scooting Bridging Mobility Cow[place]ill Level: Scooting/Bridging: dependent (less than 25% patient effort) Physical Assist: Scooting/Bridgin person assist Bed Features/Set-up: Scooting/Bridging: Flat Skilled Rationale: Sequencing, Hand placement, Verbal cues, Technique of activity, Initiation and execution of task, Cues for increased safety Skilled Intervention/Details: Scooting/Bridging: X2 to HOB for optimal positioning Supine to Sit Mobility Cow[place]ill Level: Supine->Sit: dependent (less than 25% patient effort) Physical Assist: Supine->Sit: 2 person assist Bed Features/Set-up: Supine->Sit: Head of bed elevated Skilled Rationale: Sequencing, Hand placement, Verbal cues, Technique of activity, Initiation and execution of task, Cues for increased safety Skilled Intervention/Details: Supine->Sit: Poor initiation; assist for LE advancement and to push trunk to upright Sit to Supine Mobility Cow[place]ill Level: Sit->Supine: dependent (less than 25% patient [...] tested Transfer Assessment: Sit to Stand Transfer [place] Level: Sit->Stand: not tested Gait/Functional Mobility: Wheelchair Assessment Patient currently uses wheelchair?: No Outcome Score(s): CURRENT [facility] Basic Mobility Inpatient Short Form Turning over in bed: 1 - Total Assistance Moving from lying on back to sittin - Total Assistance Moving to and from bed to chair: 1 - Total Assistance Sitting/standing from chair: 1 - Total Assistance Walk in hospital room: 1 - Total Assistance Climbing 3-5 steps with a railin - Total Assistance CURRENT [facility] Mobility Raw Score: 6 CURRENT [facility] Mobility Functional Limitation: 100.00% Impaired [...] OT clinical judgment, discharge destination recommendation is: Shelter Facility Barriers to discharge home: Patient needs [...] Orientation Level: Oriented to person (nods head "yes" to hospital to assess recall of place) [...] support to increase distal control for task, [id number] assist Grooming Intervention/Details: Encouraged participation in grooming tasks including washing face and hair brushing to challenge UE strength and endurance; limited participation despite verbal, tactile, and positional cues to initiate. Provided PROM with [facility] assist to encourage participation and assess [...] RN skin assessment) Mobility Assessment: Rolling/Turning Mobility [place] Level: Rolling/Turning: dependent (less than 25% patient effort) Physical Assist: Rolling/Turnin person assist Bed Features/Set-up: Rolling/Turning: Flat Skilled Rationale: Positioning, Sequencing, Hand placement, Verbal cues, Tactile cues, Initiation and execution of task Skilled Intervention/Details: Rolling/Turning: facilitated bilateral rolling to complete dependent pericare; total assist to initiate despite verbal and tactile cues to encourage participation Scooting Bridging Mobility [place] Level: Scooting/Bridging: dependent (less than 25% patient effort) Physical Assist: Scooting/Bridgin person assist Bed Features/Set-up: Scooting/Bridging: Flat Skilled Rationale: Positioning, Hand placement, Verbal cues Skilled Intervention/Details: Scooting/Bridging: boosted towards HOB x2 for optimal positioning Supine to Sit Mobility Cow[place]ill Level: Supine->Sit: dependent (less than 25% patient [...] cues to initiate Sit to Supine Mobility Cow[place]ill Level: Sit->Supine: dependent (less than 25% patient effort) Physical Assist: Sit->Supine: 2 person assist Bed Features/Set-up: Sit->Supine: Flat Skilled Rationale: Positioning, Sequencing, Verbal cues, Tactile cues, Initiation and execution of task, Cues for increased safety Skilled Intervention/Details: Sit->Supine: x1 from EOB; assist to guide trunk and BLE into supine for safety due to limited participation Transfer Assessment: Sit to Stand Transfer Cow[place]ill Level: Sit->Stand: not tested Functional Mobility: Outcome Score(s): CURRENT [facility] Daily Activity Inpatient Short Form Putting on/Taking Off Lower Body Clothin - Total Assistance Bathin - Total Assistance Toiletin - Total Assistance Putting on/Taking Off Upper Body Clothin - Total Assistance Groomin - Total Assistance Eatin - Total Assistance [facility] Raw Score: 6 CURRENT [facility] Activity Functional Limitation/Modifier: 100.00% Currently Impaired in Daily Activity Currently Impaired in Daily Activity - CN CURRENT AM[facility] Applied Cognitive Inpatient Short Form Follow 10-15 [...] CURRENT AM-PAC Cognitive Raw Score: 6 CURRENT AM-[facility] Cognitive Functional Limitation/Modifier: 100.00% Currently Impaired in [...] voice CURRENT HOSPITALIZATION/ICU LOS: Admit Date: 05/04/2024 [facility] LOS: 4 days Scheduled Meds: [id number] [...] In: 857.5 [I.V.:74.6; NG/GT:671; IV Piggyback:111.8] Out: 1975 [Urine:1975] PHYSICAL EXAM: Gen: Intubated / unresponsive [...] lymphedema who [facility] after she presented with AMS and found to have status epilepticus. Hospital course c/b acute respiratory failure requiring intubation and JOSE requiring COMMISSARY PRODUCTION SUPERVISOR for which nephrology is consulted. IMPRESSION Oliguric JOSE on CKD 4 JOSE likely due to ischemic and septic ATN due to septic shock Acute respiratory failure, on mechanical ventilatoin UTI with E coli. Anemia Seizure disorder Acute encephalopathy Hypocalcemia with normal corrected calcium Hypovitaminosis D Urine sediment (05/05/24): Dissolving granular casts, CaOx monohydrate crystals, WBCs, RTECs, debris PLAN No acute COMMISSARY PRODUCTION SUPERVISOR need. Reassess daily. Monitor labs and UOP [...] Steiner MD DENNIS Nephrology Fellow, PGY-5 [facility] Pager: [phone] Renal Attending Attestation: Nicho Castle M.D. personally [...] C) Resp 14 Ht 1.549 m (5' 1") Wt 113.8 kg (250 lb 14.1 oz) [...] warm and dry, no cyanosis. Dialysis Access: LI temp HD catheter. Relevant Data: Lab Results [...] (L) 05/04/2024 Lab Results Component Value Date [id number] 17.6 (L) 05/05/2024 * Pratik Young MD - 05/07/2024 6:50 PM EST Critical Care Progress Note INTERVAL HISTORY: Responding to some commands. Unable to keep circuit for CRRT due to clots CURRENT HOSPITALIZATION/ICU LOS: Admit Date: 05/04/2024 [facility] LOS: 3 days Scheduled Meds: [START [...] by Martín Alford RCP 05/07/2024 5:32 PM \\ * Mae Steiner MD - 05/07/2024 5:10 [...] lymphedema who presented as a [facility] after she presented with AMS and found to have status epilepticus. Hospital course c/b acute respiratory failure requiring intubation and JOSE requiring COMMISSARY PRODUCTION SUPERVISOR for which nephrology is consulted. IMPRESSION Oliguric [...] without access. Will need new access for COMMISSARY PRODUCTION SUPERVISOR. No urgent need although likely suboptimal clearance [...] Steiner MD DENNIS Nephrology Fellow, PGY-5 [facility] Pager: [phone] Renal Attending Attestation: I, Nicho Monae M.D. [...] (Bladder) Resp 14 Ht 1.549 m (5' 1") Wt 113.8 kg (250 lb 14.1 oz) [...] (L) 05/04/2024 Lab Results Component Value Date [id number] 17.6 (L) 05/05/2024 * Tata Sethi RPH - 05/06/2024 10:56 PM EST Department of Pharmacy Renal Documentation Note Patient: Mari Lopez Room/Bed: [facility] Assessment and Plan: The patient [...] any questions, Name: Tata Sethi RPH Phone: [phone] Date/Time: 05/06/2024 10:56 PM * Pratik Young MD - 05/06/2024 4:00 PM EST Critical Care Progress Note INTERVAL HISTORY: Responding to some voice. Off vasopressors CURRENT HOSPITALIZATION/ICU LOS: Admit Date: 05/04/2024 [facility] LOS: 2 days Scheduled Meds: acyclovir [...] Hightower RN - 05/06/2024 10:13 AM EST Ase Certified Technician's Assessment and Summary: Overall Assessment: Ongoing AMS, [...] has been established at this time. Vy Raymundo MSN, RN 10 MICU Clinical Ase Certified Technician (p) [phone] Available on secure chat FYI: Reason for [...] NPO Meds: Answer: with meds Ht: 5' 1"/154.9 cm Wt (05/05): 249#/113.3 kg BMI: 47.2 [...] Dosing wt: 105#/47.7 kg - IBW EEN: 6296-9953 (28-33 kcal/kg IBW) EPN: 72-119 (1.5-2.5 g/kg IBW) Malnutrition Statement: Does the patient meet criteria for malnutrition: Unable to assess (pt intubated) *Based on [employer] and ASPEN Indicators to Diagnose Malnutrition (AAIM) criteria (2012) Pt remains at nutrition risk due to clinical status, JOSE on CKD4, gastric bypass, AMS, c/f status epilepticus, acute respiratory failure, ileus, TF requirement. Grazyna TURCIOS, LD, [facility] Pager #[phone] * Josefina Cary MD - 05/06/2024 9:31 [...] lymphedema who [facility] after she presented with AMS and found to have status epilepticus. Hospital course c/b acute respiratory failure requiring intubation and JOSE requiring COMMISSARY PRODUCTION SUPERVISOR for which nephrology is consulted. IMPRESSION Oliguric [...] Josefina Cary MD Division of Nephrology [facility] Pager [phone] OBJECTIVE Vitals: BP 129/61 Pulse 82 Temp 99.9 F (37.7 C) (Bladder) Resp 11 Ht 1.549 m (5' 1") Wt 113.3 kg (249 lb 12.5 oz) [...] Daily EEG Report: Start Time: 05/04/2024@8 Reviewed: 05/06/2024@0000-05/06/2024@0908 History/Indication: 83yoF admitted on 05/04/2024 [...] the study is ended. Nicho Mcmillan MD Clinical Dermatologist Department of Neurology, Epilepsy Division * Taryn Lyon RPH - 05/06/2024 7:30 AM EST Department of Pharmacy Renal Documentation Note Patient: Mari Lopez Room/Bed: [facility] Assessment and Plan: The patient [...] any questions, Name: Taryn Lyon RPH Phone: [phone] Date/Time: 05/06/2024 7:31 AM * Nicho Mcmillan [...] the study is ended. Nicho Mcmillan MD Clinical Dermatologist Department of Neurology, Epilepsy Division * Get Sheriff, Pharm Student - 05/05/2024 2:55 PM EST Department of Pharmacy Admission Medication Reconciliation Note Patient: Mari Lopez Room/Bed: [facility]/E I have reviewed the patient's home medication [...] with Patient's family member/caregiver. Patient's listed pharmacy ([facility], ) was contacted and a voicemail [...] medication list have been updatedin IHIS. Updated SENIOR OPERATIONS MANAGER Med List: Prior to Admission Medications Prescriptions [...] Based on recent office visit (03/16/24 @ [facility]), patient was to start ferrous sulfate 325 mg daily and ascorbic acid 1000 mg daily Other Comments: There is no fill history for plain lisinopril going back 1 year, but consistent fill history for lisinopril/hydrochlorothiazide (most recent on 03/08/24 for a 90 day supply) Please feel free to contact me with any further questions. Name: Taryn Lyon [facility] Phone #: [phone] Date/Time: 05/06/2024 12:34 PM * Pratik Young MD - 05/05/2024 1:17 PM EST Critical Care Progress Note INTERVAL HISTORY: Unresponsive on vent. Freq ectopy on monitor. CURRENT HOSPITALIZATION/ICU LOS: Admit Date: 05/04/2024 [facility] LOS: 1 day Scheduled Meds: [START [...] Continuous Infusions: norepinephrine Stopped (05/04/242138) Propofol Stopped (05/05/245) Sodium chloride 0.9% 100 [...] 2215 -- less than 1 Naso/Oral Tube 05/05/242 Nasogastric right nostril 05/05/24 0003 -- less [...] Gonzalo. Gonzalo is patient'sLNOK. Gonzalo lives in [place] but in town currently. Gonzalo reports that [...] HHC but was completing outpatient PT at [facility] for recent shoulder surgery. Alex reports that she does work everyday and therefore, patient would not have 24/7 supervision at discharge. Will need PT/OT referrals. Patient remains on vent at this time. CM will continue to follow with medical team to coordinate discharge planning. Initial Discharge Planning Expected Discharge Disposition: Shelter Facility (vs [facility]. \\) Transportation Available for Discharge: Ambulance, Private Vehicle, Family or Friend Anticipated DME: unknown at this time Anticipated Services at Discharge: Physical Therapy, Occupational Therapy, Outpatient follow up Patient Assessment Completed: Initial Legal Next of Kin Does the patient have a Guardian?: No Spouse: No Adult Child(melissa), List All Adult Children: Yes Name and Contact information: Gonzalo Lopez- [phone] Would you like to add additional adult [...] the patient on Anticoagulation? : No [id number] [place] [address] [phone] [facility] [id number] Living Environment and Support System Is the patient from a facility or nursing home?: No Living Environment: House Patient Caregiving Responsibilities: [...] themselves at home? : Unable to assess Newscast Producer Does the patient or passenger relations representative express financial concerns? : Unable to assess Shruthi Duenas RRT Clinical Chemic Mangler Please note that I am a float Chemic Mangler. For primary Chemic Manglerresidence director, or for up to date coverage, please contact FAISAL/SAMIR main office at [phone]. * Sheila Faria RCP - 05/05/2024 7:54 AM EST 05/05/24 0753 B = SAT/SBT Eligibility, Safety Screen & Outcomes (Document Daily in ICU) Is/Was patient receiving mechanical ventilation today? Yes Safety Screen SBT (Spontaneous Breathing Trial) Proceed with SBT - No exclusion criteria met Outcome for SBT (Spontaneous Breathing Trial) Oxygen saturation less than 88% - SBT Failure * Taryn Lyon [facility] - 05/05/2024 7:24 AM EST Department of Pharmacy Pharmacokinetics Progress Note Patient: Mari Lopez Room/Bed: [facility]/E Assessment and Plan: Based upon drug level assessment and interpretation (not at steady state), no changes to vancomycindose or dosing interval are indicated at this time. Further adjustments will be made based on COMMISSARY PRODUCTION SUPERVISOR plan. A pharmacist will continue to follow [...] with any further questions. Name: Taryn Lyon RP Phone: [phone] Date/Time: 05/05/2024 7:24 AM * Jennifer Cloud RPH - 05/04/2024 10:55 PM EST Department of Pharmacy Anticoagulant/Antithrombotic Progress Note Patient: Mari Lopez Room/Bed: [facility] Assessment/Plan: The patient's most recent renal function [...] units subcutaneous Q8h . Name: Jennifer Cloud RPH Phone: [phone] Date/Time: 05/04/2024 10:55 PM * Jennifer Cloud [facility] - 05/04/2024 10:38 PM EST Department of Pharmacy Renal Documentation Note Patient: Mari Lopez Room/Bed: [facility]/E Assessment and Plan: The patient is currently [...] contact with any questions, Name: Jennifer Cloud [facility] Phone: [phone] Date/Time: 05/04/2024 10:38 PM * Jennifer Cloud [facility] - 05/04/2024 9:08 PM EST Department of Pharmacy Outside Facility Transfer Note Patient: Mari Lopez Room/Bed: [facility]/E Patient has transferred from an outside hospital ([facility] the following antimicrobial, antiepileptic, and anticoagulant medications were received by the patient prior to arrival at [facility]: Antimicrobials: Vancomycin 500mg on 05/04 @ 1533 Antiepileptics: Keppra 4500mg on 05/04 @ 1451 Please feel free to contact me with any further questions. Name: Jennifer Cloud RP Phone #: [phone] Date/Time: 05/04/2024 9:08 PM documented [facility] Discharge instructions* Discharge Instructions* Leslie Peterson [...] Miryam MATA. Please follow up with your environmental project manager, Dr. Gilmore, even if it is sooner than your regularly scheduled every 6 months. Please follow up with a director of religious life to assess your heart failure with preserved ejection fraction and abnormal motion of your heart muscle seen on echocardiography (ultrasound of your heart. It is okay to follow up with Dr. Jackson or see a new [facility] director of religious life. Please call cardiology at [phone] to schedule a follow up visit. Please follow up with a neurologist to follow up about your seizures. Please call Neurology [phone] to schedule an appointment Please review the first page of your after-visit summary for a detailed list of medication changes,follow-up instructions and scheduled appointments. Leslie Peterson MD documented in this [facility]02-12-2025 Hospital course Narrative* Leslie Peterson MD - [...] AMS. On 05/01/24 EMS transferred patient to [facility] and then she became non responsiveand hypotensive requiring norepinephrine. EEG noted GPDs and neurology was consulted and reviewed EEG who believed it met criteria status epilepticus. Patient was transferred to [facility] on 05/04 for further neurological medical management. She was admitted to the MICU for critical care management. Per H&P: The patient initially presented to the [facility] ED 05/01/24 with AMS found to havesevere [...] On the floor she was followed by SUPERVISOR SMOKE CONTROL for dysphagia. She underwent FEES 05/13 with [...] with discharge back to her facility in [place]. Physical Exam on Day of Discharge: Gen: [...] 75 MG TABS Follow-up: ADOLFO Aguillon [address] [address] Follow up Please call to schedule a [...] of this patient. Nicol Judge MD, FACP Rotating Equipment Specialist of Clinical Medicine Division of General Internal Medicine and Geriatrics documented in this encounterUniversity [facility] Procedure note* Shahram Nuñez, SUPERVISOR SMOKE CONTROL - 05/17/2024 11:24 AM ESTAssociated Order(s): SPEECH [...] on the below outcome measures/assessment score(s) and SUPERVISOR SMOKE CONTROL clinicaljudgment, discharge destination recommendation is: SNF. Patient [...] and Impaired cognitive skills limiting independence. Acute SUPERVISOR SMOKE CONTROL Outcomes Tracking Communicate basic wants and needs?: [...] Comments: On 05/01/24 EMS transferred patient to [facility] and thenshe became non responsive and hypotensive requiring norepinephrine. EEG noted GPDs and neurology was consulted and reviewed EEG who believed it met criteria status epilepticus. Patient was transferred to [facility] on 05/04 for further neurological medical management. She was admitted to the MICU for critical care management. Per H&P: The patient initially presented to the [facility] ED 05/01/24 with AMS found to havesevere metabolic derangements (pH 7.0, acute renal failure with uremia, hyperkalemia, acidosis). She was intubated, initiated on broad spectrum antibiotics, and placed on vasopressors after inadequate response to 30 cc/kg IVF resuscitation. CTH on admission reportedly normal (reports not available or included in transfer paperwork, [facility] radiology contacted to push images). An [...] epilepticus and intubated at OSH. Patient extubatedon 2/2 and had post extubation stridor. Of note, [...] laryngeal edema and NGT. Consider transitioning to [facility]. Subjective information: Patient arrived at [facility] via transport. Reports significant back pain [...] teaspoon, single cup drink, and straw Varibar [place] Barium: teaspoon, single cup drink, and straw [...] of Cues/Supervision: intermittent supervision Assistance: nurse/aide Acute SUPERVISOR SMOKE CONTROL Goals Plan of Care by AZAEL Blas [...] oropharyngeal swallow function to most appropriately guide SUPERVISOR SMOKE CONTROL plan of care Outcome: Met Time In: 939 Time Out: 1020 Total Visit Time: 40 minutes Total Treatment Time (skilled, billable minutes): 40 minutes SUPERVISOR SMOKE CONTROL Evaluation and Treatment Time MBS/Motion Fluoroscopic Swallowing Eval 12236: 40 Speech Language Pathologist: AZAEL Blas Time In: 939 Time Out: 1020 Total Visit Time: 40 minutes Total Treatment Time (skilled, billable minutes): 40 minutes Non-billable assistance during session: none Assisted by during session: Kavya Fuentes SUPERVISOR SMOKE CONTROL, Imani GANNON PPE used during patient interaction: gloves Patient location/status at end of session: (transport bed) Patient alarms at end of session: none altered SUPERVISOR SMOKE CONTROL Evaluation and Treatment Time MBS/Motion Fluoroscopic Swallowing Eval 05823: 40 Upon discontinuation of Acute Care Speech [...] on the below outcome measures/assessment score(s) and SUPERVISOR SMOKE CONTROL clinicaljudgment, discharge destination recommendation is: Pending instrumental swallow assessment. Acute SUPERVISOR SMOKE CONTROL Outcomes Tracking Communicate basic wants and needs?: [...] evaluation on 05/12/24. Patient History Comments: Mari raymundo a 83 y.o. female who was admitted on 05/04/2024 as a transfer from [facility]. Initially presented to the [facility] ED 05/01/24 with AMS found to have [...] Status: O2 Sat (%): 94 % (05/13 1121) O2 Device: room air (05/13 112) Lines/Tubes/Drains: Lines/Tubes/Drains (Rehab Status): Tube feed, Telemetry [...] activity Factors That Relieve Pain: repositioning Prior SUPERVISOR SMOKE CONTROL history: No prior SUPERVISOR SMOKE CONTROL history per chart review Current Method of [...] Procedure Details Procedure Performed & Read by: Shereen López, SUPERVISOR SMOKE CONTROL Scope Serial #: [id number] Feeder Name: Startup Threads Topical Anesthetic: None Patient was positioned : [...] (NZSS) for Pneumonia. Dysphagia. 2018 May;33(1):115-122. doi: 10.1007/[id number]-o. Epub 2016Nov 26. PMID: 45161540. Evans Secretion Scale (LAVERNE) The Evans Secretion [...] 2: Any secretions that changed from a "1" rating to a "3" rating during the observation period Praful CW, Alma Delia CT, Sharp CC, Dave CJ. Evans secretion scale and fiberoptic endoscopic evaluation of swallowing in predicting aspiration in dysphagic patients. Eur Arch Otorhinolaryngol. 2017 Pradip;274(6):9269-7179. doi: 10.1007/[id number]-l. Epub 2016Jun 15. PMID: [id number]. Consistencies Tested: Consistencies Tested Ice chip: 1/2 [...] the larynx or out of the airway [place] Pharyngeal Residue Severity Rating Scale: (Connor Fields, Ilana Petersen, & Marty S. (2015). The tamera pharyngeal residue severity rating scale: an anatomically defined and image-based tool. Dysphagia, 30, 521-528.) Ice Chips Valleculae Severity Rating: Trace (1-5%), Trace Coating of the Mucosa Pyriform Sinus Rating: Trace (1-5%), Trace Coating of Mucosa Thin Liquids (IDDSI 0) Valleculae Severity Rating: Trace (1-5%), Trace Coating of the Mucosa Pyriform Sinus Rating: Trace (1-5%), Trace Coating of Mucosa Mildly Thick Liquids (IDDSI 2)/[place] Valleculae Severity Rating: Trace (1-5%), Trace Coating of the Mucosa Pyriform Sinus Rating: Trace (1-5%), Trace Coating of Mucosa Still Pictures/Video: See "Flexible Endoscopic Evaluation Of Swallowing" under Procedures tab in IHIS for all [...] 05/13: good prognosis, ongoing dypshagia management Acute SUPERVISOR SMOKE CONTROL Goals Plan of Care by AZAEL Carvalho at 05/13/2024 10:30 AM Version 1 of 1 Problem: Dysphagia Goal: FEES - Patient will participate in Fiberoptic Endoscopic Evaluation of Swallowing (FEES) study to objectively assess pharyngeal swallow function to most appropriately guide SUPERVISOR SMOKE CONTROL plan of care Outcome: Ongoing Speech Language Pathologist: AZAEL Carvalho, BCS-S Board Certified Specialist in Swallowing and Swallowing Disorders Available via Dailysingle Chat Time In: 1200 Time Out: 1235 Total Visit Time: 35 minutes Total Treatment Time (skilled, billable minutes): 35 minutes SUPERVISOR SMOKE CONTROL Evaluation and Treatment Time FEES/Endoscopic Swallowing Eval 30437: 35 Swallowing Dysfunction Treatment 52785: 20 Non-billable assistance during session: none Assisted [...] with the EEG interpretation Mulugeta Barker MD Clinical Dermatologist, Department of Neurology, Epilepsy Section [facility] Cosigned by Mulugeta Barker MD at 05/09/2024 5:30 PM EST * Nicho Mcmillan MD - 05/06/2024 9:08 AM ESTAssociated Order(s): EEG FDC MONITORING STUDY NAME: Continuous video-EEG recording REFERRING PHYSICIAN: Paulino Whitehead MD / Kindra Gannon MD DATE AND TIME START OF RECORDIN05/04/2024@2207 DATE AND TIME END OF RECORDIN05/06/2024@0908 HISTORY: [...] correlation advised. Nicho Mcmillan MD EEG Attending Clinical Dermatologist Department of Neurology, Epilepsy Division [facility] * Oralia Mary APRN-MRI MANAGER - 05/05/2024 6:06 PM ESTAssociated Order(s): Lumbar Puncture Post-Procedure Diagnose(s): Status epilepticus Lumbar Puncture Procedure Start: 14:07 EST Procedure Stop: 14:25 EST Performed by: CHRISTINE Braun Authorized by: CHRISTINE Braun Location of procedure: ICU Room number: 460E Name of Tandem Operator: Kasey Jane RN [place] Protocol Written consent obtained Risks and benefits [...] to verify the correct patient, procedure, equipment, manager technical support and site/side marked as required Anesthesia [...] hour. CHRISTINE Braun documented [facility] [place] Consult note* Joshua Gallardo RN - 05/12/2024 [...] Team notified. PICC pager [phone] PIV pager [phone] * Ying Reeder RN - 05/11/2024 6:17 [...] not needed PICC pager [phone] PIV pager [phone] * Joel Calderon DO - 05/10/2024 11:55 AM EST NEUROLOGY CONSULTATION NOTE - FOLLOW UP Reason for consultation: "patient transferred per [facility] neurology for status. Consult for cEEF, status management." History of present illness: Mari Lopez is [...] TRIG 113 05/05/2024 No results found for: "HGBA1C" Lab Results Component Value Date AMMONIA 31 [...] to reach POA Additional note: PICC pager [phone] PIV pager [phone] * Joel Calderon DO - 05/09/2024 12:39 PM EST NEUROLOGY CONSULTATION NOTE - FOLLOW UP Reason for consultation: "patient transferred per [facility] neurology for status. Consult for cEEF, status management." History of present illness: Mari Lopez is [...] TRIG 113 05/05/2024 No results found for: "HGBA1C" Lab Results Component Value Date AMMONIA 31 05/04/2024 TSH 12.332 (H) 05/05/2024 AST 23 05/04/2024 ALT 11 05/04/2024 Imaging: MRI Brain w/wo 05/06 Multilevel degenerative spondylosis and degenerative disc disease results in moderate spinal canal stenosis at C5-6 and C6-7 with moderate bilateral neural foraminal stenosis. Visualization severely degraded by motion. Evaluation for spinal cord signal is significantly degraded by motion and Puag artifact. Cannot exclude myelopathic cord signal. No definite myelopathic cord signal is visualized in the cervical spine. Suspected Puga artifact artifact in the upper thoracic spine. MRI C spine w/wo 2/ Questionable small focus of abnormal cortical/subcortical FLAIR [...] 83 yo female initially presented to the [facility] ED 05/01/24 with worsening AMS over 2 [...] NOTE - FOLLOW UP Reason for consultation: "patient transferred per [facility] neurology for status. Consult for cEEF, status management." History of present illness: Mari Lopez is [...] A&O x 3). She initially presented to [facility] ED 05/01/2024 where she was non- responsive [...] attending neurologist Dr Yates's impression as below: "This routine EEG may meets criteria for status epilepticus as it at times right hand movements appears to be time locked with above mentioned discharges. This study also showed diffuse cortical irritability and diffuse moderate to severe encephalopathy. Recommend long term care phlebotomist monitoring for further characterization of concern for status epilepticus." Interval History HD yesterday Febrile Per MICU [...] TRIG 113 05/05/2024 No results found for: "HGBA1C" Lab Results Component Value Date AMMONIA 31 [...] no extremity movement recommend MRI cervical. Gerardo Rogres M.D. Attending Neurologist * Josefina Cary MD - 05/05/2024 11:25 AM ESTAssociated Order(s): IP CONSULT TO NEPHROLOGY Images from the original note were not included. NEPHROLOGY INPATIENT CONSULTATION NOTE Reason for Consultation: JOSE requiring COMMISSARY PRODUCTION SUPERVISOR Referring Provider: Pratik Young MD Hospital Day: 1 ASSESSMENT AND PLAN: 83F with PMH of CKD 4, neurogenic bladder, HTN, obesity s/p gastric bypass, TADEO, COPD, HFpEF, hypothyroidism, DVT/PE, chronic lymphedema who [facility] after she presented with AMS and found to have status epilepticus. Hospital course c/b acute respiratory failure requiring intubation and JOSE requiring COMMISSARY PRODUCTION SUPERVISOR for which nephrology is consulted. IMPRESSION Oliguric [...] to septic shock No urgent indication for COMMISSARY PRODUCTION SUPERVISOR given stable electrolytes and volume status. Will continue to monitor. Follow-up vitamin D levels Accurate Is/Os Avoid nephrotoxins as able Please direct all questions/concerns to Qgenda --> Internal Medicine --> Nephrology --> Ross Consults Josefina Cary MD Division of Nephrology [facility] Pager [phone] SUBJECTIVE 78F with PMH of CKD 4, neurogenic bladder, HTN, obesity s/p gastric bypass, TADEO, COPD, HFpEF, hypothyroidism, DVT/PE, chronic lymphedema who presented [facility] a [facility] after she presented with AMS and found to have status epilepticus. Hospital course c/b acute respiratory failure requiring intubation and JOSE requiring COMMISSARY PRODUCTION SUPERVISOR. Unclear what pt's baseline Cr is and how many sessions of COMMISSARY PRODUCTION SUPERVISOR she received at the OSH given lack ofrecords, although she had a session of HD on 05/02 and another on 05/04. Pt appears to be followingwith a environmental project manager but no records in the system. At [...] (Bladder) Resp 11 Ht 1.549 m (5' 1") Wt 113.3 kg (249 lb 12.5 oz) [...] NEUROLOGY NEUROLOGY CONSULTATION NOTE Reason for consultation: "patient transferred per [facility] neurology for status. Consult for cEEF, status management." History of present illness: Mari Lopez is [...] A&O x 3). She initially presented to [facility] ED 05/01/2024 where she was non- responsive [...] attending neurologist Dr Yates's impression as below: "This routine EEG may meets criteria for status epilepticus as it at times right hand movements appears to be time locked with above mentioned discharges. This study also showed diffuse cortical irritability and diffuse moderate to severe encephalopathy. Recommend long term care phlebotomist monitoring for further characterization of concern for status epilepticus." Medical History PAST MEDICAL HISTORY No past [...] solution 15 mL 15 mL Mouth/Throat Q12H Pratik Ennis APRN-MRI MANAGER 15 mL at 05/04/24 2149 faMOTIdine (PEPCID) tablet 20 mg 20 mg Oral Daily Jennifer Cloud RPH Or faMOTIdine (PEPCID) tablet 20 mg 20 mg Per NG tube Daily Jennifer Cloud RPH 20 mg at 05/04/24 2149 Or famotidine (PF) (PEPCID) injection 20 mg 20 mg Intravenous Daily Jennifer Cloud RPH Heparin injection 7,500 Units 7,500 Units Subcutaneous Q8H 0800/1600/2200 Jennifer Cloud RPH7,500 Units at 05/04/24 2304 Ipratropium-albuterol (DUONEB) 0.5-2.5 (3) MG/3ML nebulizer solution 3 mL 3 mL Nebulization Q6H PRNMatthew Angel Ennis APRN-MRI MANAGER levETIRAcetam (KEPPRA) injection 1,000 mg 1,000 mg Intravenous Q24H Paulino Whitehead MD [START ON 05/06/2024] levoFLOXacin (LEVAQUIN) tablet 500 mg 500 mg Per NG tube Q48H Jennifer Cloud RPH Levothyroxine (SYNTHROID) tablet 125 mcg 125 mcg Oral Before BKF Paulino Whitehead MD LORazepam (ATIVAN) injection 2 mg 2 mg Intravenous Q1H PRN Pratik Ennis, BUSINESS OFFICE TECHNOLOGY INSTRUCTOR-MRI MANAGER Norepinephrine (LEVOPHED) 4 mg in normal saline 250ml IV infusion premade 0-0.1 mcg/kg/min (Order-Specific) Intravenous Continuous Paulino Whitehead MD Stopped at 05/04/242138 Propofol (DIPRIVAN) 1000 MG/100ML premix infusion 0-50 mcg/kg/min (Order- Specific) Intravenous Continuous Paulino Whitehead MD 7 mL/hr at 05/04/24 232 10 mcg/kg/min at 05/04/242327 Vancomycin HCl in NaCl (Vancocin) 1,500 mg in 0.9% NS 250 mL premix IVPB 20 mg/kg (Adjusted) Intravenous Q72H Jennifer Cloud, [facility] Physical Examination Temp: [98.6 F (37 C)-99 [...] 105 (H) 05/04/2024 No results found for: "CHOLESTEROL", "TRIG", "HDL", "LDLCALC" No results found for: "HGBA1C" Lab Results Component Value Date AMMONIA 31 [...] and UTI. Recommendations: - check ECG; if MD interval < 200ms, would discontinue Keppra in favor of Vimpat 100mg BID givenher renal function - cEEG placed - CTH now, MRI brain once EEG no longer needed and removed - nephrology consult to evaluate for COMMISSARY PRODUCTION SUPERVISOR Thank you for the consultation. If you [...] 150's and creat 7, patient started on COMMISSARY PRODUCTION SUPERVISOR). Of note also had been taking Flexeril 10 mg TID and Ambien 10 mg qday per pharmacist. For seizure prophylaxis will avoid Keppra due toCKD and start Vimpat maintenance. Will continue EEG for today. Gerardo Rogers M.D. Attending Neurologist documented in this encounterOS[facility] [place]01-29-2025 History and physical note* Paulino Whitehead [...] epilepticus. The patient initially presented to the [facility] ED 05/01/24 with AMS found to havesevere [...] out of state. He is traveling to [place]. PAST MEDICAL, SURGICAL, FAMILY, and SOCIAL HISTORY [...] Labs-ABGs Labs-CBC WBC/Hgb/Hct/Plts: 17.39/7.9/24.7/96 (05/04 2107) Labs-Chem 7([facility]) Bun/Creat/Cl/CO2/Glucose: 49/3.28/104/22/105 (05/04 2107) Na/K+/Phos/Mg/Ca: 135/4.5/3.8/1.5/-- (05/04 [...] in the setting of underlying CKD. Initiatedon COMMISSARY PRODUCTION SUPERVISOR 05/02. - Nephrology consulted for continuation of COMMISSARY PRODUCTION SUPERVISOR. The patient received HD 05/04. - Renally [...] was discussed with Dr. Gannon, the attending validation architect for the MICU. Paulino Whitehead MD Cosigned by Pratik Young MD at 05/05/2024 8:08 AM EST documented in this encounterOSU [facility] [place]-27-2025 Telephone encounter Note* Telephone Encounter - Olga Dillard RN - 05/02/2024 9:24 AM EST Friend (Alex) calls to let provider's office know that patient is currently at [facility] in the ICU for sepsis and kidney failure. Nothing further needed at this time. Closing encounter. Olga Dillard RN [facility]01-27-2025 Miscellaneous Notes* Telephone Encounter - Olga Dillard RN - 05/02/2024 9:24 AM EST Friend (Alex) calls to let provider's office know that patient is currently at [facility] in the ICU for sepsis and kidney failure. Nothing further needed at this time. Closing encounter. Olga Dillard RN documented in this encounterL[facility]01-26-[facility] Evaluation note* Diagnosis Onset Date Resolution [...] 7:11pm Acute on chronic anemia chronic F 2024 7:11pm Seizure disorder chronic May 18, [...] 7:11pm Chronic kidney disease deleted 2024 7:11pm [facility] Work Phone: 1(918) 661-564512-11-2024 NoteHNO ID: [id number] Author: MIRYAM OROZCO APRN.MRI MANAGER Service: ? Author Type: Nurse Practitioner Type: [...] total shoulder arthroplasty on 02/22/2024. Which facility: [facility] Date of visit: 02/25/2024-03/02/2024 Diagnosis: S/P left [...] study ordered for 03/04/2024, will follow-up with [facility] pulmonary medicine to go over results. Discharge with PT at [facility]. Instructed to follow-up with surgeon, Dr. Carson. Placed on doxycycline due to arm pain to cover for possible cellulitis where IV was placed. Venous Doppler was negative for any thrombosis in the arm. Needs to complete bone density. Current symptoms: Had follow up with Surgeon, still wearing sling until March 21, still doing PT twice weekly, at [facility]. Doing well since surgery. Next following in [...] CONDYLEANDPLATU MEDIALANDLAT COMPARTMENTS 1990 bilateral total knee s(Racine) ARTHRP KNE CONDYLEANDPLATU MEDIALANDLAT COMPARTMENTS 10/24/2004 bilateral [...] reverse total shoulder. Dr. Klaus Omalley with [facility] Ortho ALLERGIES Bactrim [Sulfamethoxazole-Trimethoprim], Ibuprofen, Kefzol [...] ounces of liq (more content not included)... [facility]12-02-2024 Telephone encounter Note* Telephone Encounter - Mulugeta Jennings APRN.CNP - 03/07/2024 10:53 AM EST [facility] All prescriptions have been APPROPRIATELY filled. No suspiciousactivity was identified. 03/07/2024 by Mulugeta Jennings APRN.CNP The following approved medication requests have been transmitted electronically. Requested Prescriptions Signed Prescriptions Disp Refills zolpidem (AMBIEN) 10 mg 30 tablet 2 Sig: Take 1 tablet by mouth at bedtime as needed for up to 90 days. Authorizing Provider: MULUGETA JENNINGS APRN.CNP [facility]12-02-2024 Miscellaneous Notes* Telephone Encounter - Mulugeta Jennings APRN.CNP - 03/07/2024 10:53 AM EST Approved. [facility] website checked and validated. All [...] needed for up to 90 days. Piedad Shetty [facility] March 07, 2024 10:17 AM documented in this encounterLima City Hospital12-02-2024 Telephone encounter Note * Telephone Encounter [...] for up to 90 days. Piedad [facility] March 07, 2024 10:17 AM [facility]11-27-2024 [facility]11-21-2024 [facility]11-08-2024 Telephone encounter Note* Telephone Encounter - Alex Lackey MA - 02/12/2024 10:08 AM EST OV note and form faxed. Alex Lackey MA [facility]11-08-2024 Miscellaneous Notes* Telephone Encounter - Alex [...] Completed form needs to be faxed to [facility] at [phone]. Pt scheduled for Left reverse total shoulder arthroplasty on 02/22/[address] Klaus Omalley. Pt has PAT on 02/18/24 at [facility]. Pt last OV on 01/28/24 with Miryam Orozco for routine follow up. Route to [place] when form completed for processing documented in this encounterLima City Hospital11-08-2024 Telephone encounter Note * Telephone Encounter - Lizy Capone MD - 02/12/2024 10:00 AM EST Form done; send with copy of 01/27 note Lizy Capone MD [facility]11-08-2024 Telephone encounter Note* Telephone Encounter - Alex Lackey MA - 02/12/2024 8:57 AM EST Type of letter/form/fax request - medical clearance request for surgery Form received from fax on 1 floor and placed on MD desk (Dr. Capone) for completion. Completed form needs to be faxed to [facility] at [phone]. Pt scheduled for Left reverse total shoulder arthroplasty on 02/22/[address] Klaus Omalley. Pt has PAT on 02/18/24 at [facility]. Pt last OV on 01/28/24 with Miryam Orozco for routine follow up. Route to [place] when form completed for processing [facility]10-24-2024 Instructions* Patient Instructions* Miryam Orozco APRN.CNP - 01/28/2024 9:20 AM EDT Get repeat fasting labs in 6 months prior to next visit Continue to take all medication as prescribed Keep scheduled appointments with specialists. Flu and covid given today Follow up in 6 months or sooner as needed. documented in this encounterLima City Hospital10-24-2024 History of Present illness Narrative* Miryam Orozco APRN.CJ - 01/28/2024 9:00 AM EDT This is [...] having left shoulder surgery in February with [facility], Dr. Omalley. LLE: Lasix 40 mg for [...] CONDYLE&PLATU MEDIAL&LAT COMPARTMENTS 1990 bilateral total knee s(Racine) ARTHRP KNE CONDYLE&PLATU MEDIAL&LAT COMPARTMENTS 10/24/04 bilateral total knee revisions DELIVERY ONLY , low cervical CHOLECYSTECTOMY COLONOSCOPY FLX DX W/COLLJ SPEC WHEN PFRMD 11/17/2017 Colonoscopy DEBRIDEMENT SUBCUTANEOUS TISSUE 20 SQ CM/< 02/17/07 LEFT LEG DEBRIDEMENT SUBCUTANEOUS TISSUE 20 SQ CM/< [id number] LEFT LEG DEBRIDEMENT SUBCUTANEOUS TISSUE 20 SQ CM/< [id number] LEFT LEG DEBRIDEMENT SUBCUTANEOUS TISSUE 20 SQ CM/< [id number] LEFT LEG DEBRIDEMENT SUBCUTANEOUS TISSUE 20 SQ CM/< [id number] LEFT LEG DEBRIDEMENT SUBCUTANEOUS TISSUE 20 SQ [...] mg 24 hr tablet Take by mouth. Hytuqpxfdff-Mnefetnpg-Sff C-Mn (GLUCOSAMINE CHONDROITIN MAXSTR) 500-400 mg cap Take 1 capsule by mouth three times daily. COMPOUNDED PRESCRIPTION Stair lift DAILY-LUISITO tablet TAKE 1 TABLET BY MOUTH ONCE DAILY. jvuzpjs-moiwjeuim-ookdumy D3 (CALCIUM 500+D) 500 mg(1,250mg) -200 unit [...] YR, HIGH DOSE, TRIVALENT (FLUZONE HIGH-DOSE) - [employer] COVID-19 VACCINE AGE 12+ YR (COMIRNATY) Follow-up in 6 months with labs Discussed treatment plan and patient voices understanding. Patient's questions answered appropriately. Medications and potential side effects were discussed and patient voices understanding. Miryam Orozco APRN.CNP This note was partially generated using [employer] voice recognition system. Note was reviewed for accuracy. There may be minor misspellings or grammar miscues with [employer] voice recognition. documented in this encounterLima City Hospital10-24-2024 NoteHNO ID: [id number] Author: MIRYAM OROZCO APRN.CNP Service: ? Author [...] having left shoulder surgery in February with [facility], Dr. Omalley. LLE: Lasix 40 mg [...] and thrombophlebitis of femoral vein (deep) (superficial) ([facility]) Unspecified sleep apnea PAST SURGICAL HISTORY Procedure Laterality Date ANESTHESIA HERNIA REPAIR LOWER ABDOMEN NOS 04/2004,05/11 gortex put in on 05/11 then taken out06/08 ARTHRP KNE CONDYLEANDPLATU MEDIALANDLAT COMPARTMENTS 1990 bilateral total knee s(Racine) ARTHRP KNE CONDYLEANDPLATU MEDIALANDLAT COMPARTMENTS 10/24/04 bilateral total knee revisions DELIVERY ONLY , low cervical CHOLECYSTECTOMY COLONOSCOPY FLX DX W/COLLJ SPEC WHEN PFRMD 11/17/2017 Colonoscopy DEBRIDEMENT SUBCUTANEOUS TISSUE 20 SQ CM/< 02/17/07 LEFT LEG DEBRIDEMENT SUBCUTANEOUS TISSUE 20 SQ CM/< [id number] LEFT LEG DEBRIDEMENT SUBCUTANEOUS TISSUE 20 SQ CM/< [id number] LEFT LEG DEBRIDEMENT SUBCUTANEOUS TISSUE 20 SQ CM/< [id number] LEFT LEG DEBRIDEMENT SUBCUTANEOUS TISSUE 20 SQ CM/< [id number] LEFT LEG DEBRIDEMENT SUBCUTANEOUS TISSUE 20 SQ [...] UNDERWEAR FOR WOMEN XL (more content not included)...[facility]09-30-2024 Telephone encounter Note* Telephone Encounter - Michael Diop - 01/04/2024 8:38 AM EDT Lvm for patient to call back and schedule an appointment with Dr. Jackson. [facility]09-30-2024 Miscellaneous Notes* Telephone Encounter - Michael [...] knee replacement. Weston Branch documented in this encounterCleveland [id number] Telephone encounter Note * Telephone Encounter - Michael Diop - 12/31/2023 8:14 AM EDT Lvm for patient to call back and schedule an appointment with Dr. Jackson. [facility]09-24-2024 Telephone encounter Note* Telephone Encounter - Michael Diop - 12/29/2023 10:40 AM EDT Lvm for patient to call back and schedule an appointment with Dr. Jackson for knee pain. [facility]09-24-2024 Telephone encounter Note* Telephone Encounter - Weston Humphrey - 12/29/2023 8:53 AM EDT Patient is being referred to Dr. Jackson by Dr. Lokesh Mc for left knee pain. Please reach out to patient and assist with scheduling a consultation. 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 Weston Branch [facility]09-12-2024 Telephone encounter Note* Telephone Encounter - Analia Gracia RN - 12/17/2023 3:43 PM EDT Pt called and is notified of providers message. Pt voices understanding. Analia Gracia RN [facility]09-12-2024 Miscellaneous Notes* Telephone Encounter - Analia Gracia RN - 12/17/2023 3:43 PM EDT Pt called and is notified of providers message. Pt voices understanding. Analia Grcaia RN * Telephone Encounter - Miryam Orozco [...] some form exercise. Keep scheduled appointments with environmental project manager. Please let me know what she prefers regarding her thyroid. Thank you Miryam Orozco APRN.CJ documented [facility] Telephone encounter Note * Telephone Encounter - Miryam Orozco APRN.CNP - 12/17/2023 3:31 PM EDT Lab orders have been placed. Miryam Orozco APRN.CJ [facility]09-12-2024 Telephone encounter Note* Telephone Encounter - Lilo Maurer LPN - 12/17/2023 3:00 PM EDT Patient returned call, given below results/recommendations, verbalized understanding. Patient wanting to stay on same dose of Synthroid and recheck labs in 6-8 weeks. Lilo Maurer LPN [facility]09-12-2024 NoteHNO ID: [id number] Author: AMADA VELASCO LPN Service: ? Author [...] not included. [facility] Today's Date: 12/17/2023 Name: Mari Lopez [...] - Initial HPI (Obtained by Avis Marrufo APRN.MRI MANAGER ). From 03/2022 - She previously inquired [...] Tylenol (Acetaminophen), Aspirin Opioids: Tramadol, Hydrocodone (eg [place]) Data Reviewed Today: Allergies: ALLERGIES Allergen Reactions [...] and assume there are 5 lumbar-type vertebrae. Medicare Specialist: PSCB Transcribe Date/Time: Apr 29 2022 10:41A Dictated by : ANA MONK MD This examination was interpreted and the report reviewed and electronically signed by: KENDALL GOMEZ MD on Apr 29 2022 2:36PM EST X-ray Lt. Knee 10/2023 X-ray Rt. Knee 10/2023 X-ray Bilateral Shoulder 01/2023 Right shoulder: Suboptimal positioning. There appears to be severe glenohumeral osteoarthritis ijksrpca-dz-xvsy contact. Faint chondrocalcinosis at the glenohumeral joint. Ossific density projectingover the humeral head/neck is suboptimally evaluated due to poor positioning though may represent aintra- articular body. Mild degenerative change acromioclavicular joint. Acromiohumeral interval is maintained. No acute fracture. Left shoulder: Suture anchor in the humeral head prior rotator cuff repair. Severe glenohumeral osteoarthritis with itxg-mu-tjrz contact. Intra-articular bodies medial to the humeral [...] bony destructive process. Lumbar: There are five lwt-wjp-ismcefh lumbar vertebrae. No acute fracture or subluxations [...] 0.96 mg/dL Final No results found for: "EGFR" No results found for: "PCGLUCOSE" Current Medications, Past Medical History, Past Surgical [...] report bilateral flank pain. She states her director of religious life, PCP and environmental project manager advised her pain is coming from her [...] - Suprascapular Nerve under ultrasound guidance LEFT-SIDED Electronics Manufacturer Needed: Radiofrequency Ablation - YES Anticoagulant - Hold Needed: NO HOLD REQUIRED FOR THIS PROCEDURE Anticoagulant - Currently Taking: None Allergies (relevant): None Scheduling - Mobility (Can Patient independently transfer on/off an OR or Procedure table?): YES (May schedule at any location) Scheduling - Additional Info: Schedule after January 13 - she will call when ready Studies: None Functional Hinduism: NONE Referrals: Orthopedics ([phone]) Follow-up: 3 months for medications CAREY Depending [...] MD Pain Management [facility] documented in this encounterLima City Hospital09-12-[facility]24 Telephone encounter Note * Telephone Encounter - Minna Blue LPN - 12/17/2023 8:46 AM EDT TC to pt. LM to call office, ask for triage nurse to get results. Minna Blue LPN [facility]09-11-2024 Telephone encounter Note* Telephone Encounter - [...] some form exercise. Keep scheduled appointments with environmental project manager. Please let me know what she prefers regarding her thyroid. Thank you Miryam Orozco APRN.MRI MANAGER [facility]09-10-2024 NoteHNO ID: [id number] Author: ROQUE DELGADO MD Service: ? Author Type: Physician Type: Progress Notes Filed: 12/17/2023 09:15 Note Text: [facility] Today's Date: 12/17/2023 Name: Mari Lopez [...] - Initial HPI (Obtained by Avis Marrufo APRN.MRI MANAGER ). From 03/2022 - She previously inquired [...] has been rescheduled with Dr. Delgado in [place] on 12/16 at 8:45am. Gonzalo Holland [facility]09-09-2024 Miscellaneous Notes* Telephone Encounter - Gonzalo Holland - 12/14/2023 1:31 PM EDT Patient has been rescheduled with Dr. Delgado in [place] on 12/16 at 8:45am. Gonzalo Holland * [...] elaborate or confirm Was Patient Referred to [facility]/Seek Emergency Treatment (Y/N): n Did Patient Agree (Y/N): n/a Was An Attempt Made To Transfer The Patient To The Office (Y/N): n Were You Able To Reach Someone At The Office (Y/N): n/a If Yes - Patient Was Transferred To (Caregivers Name): n/a If No - Which [facility] Leadership Rotary Driller Did You Speak With Regarding This Patient: n/a Was an appointment scheduled (Y/N): n Reason patient was requesting visit (RFV/signs and symptoms/diagnosis) : n/a Person calling if other than patient: self Return call to if other than patient: self Best contact number: [phone] Thank you, Linda Singh December 14, 2023 12:40 PM documented in this encounterLima City Hospital09-09-2024 Telephone encounter Note * Telephone Encounter - Sofía Crowe - 12/14/2023 1:03 PM EDT This patient does not have mychart- but was scheduled for a VV Please reschedule her to in person as we do not schedule phone call visits any longer [facility]09-09-2024 Telephone encounter Note* Telephone Encounter - [...] elaborate or confirm Was Patient Referred to [facility]/Seek Emergency Treatment (Y/N): n Did Patient Agree (Y/N): n/a Was An Attempt Made To Transfer The Patient To The Office (Y/N): n Were You Able To Reach Someone At The Office (Y/N): n/a If Yes - Patient Was Transferred To (Caregivers Name): n/a If No - Which [facility] Leadership Rotary Driller Did You Speak With Regarding This Patient: n/a Was an appointment scheduled (Y/N): n Reason patient was requesting visit (RFV/signs and symptoms/diagnosis) : n/a Person calling if other than patient: self Return call to if other than patient: self Best contact number: [phone] Thank you, Linda Singh December 14, 2023 12:40 PM [facility]09-09-2024 Telephone encounter Note* Telephone Encounter - Miryam Orozco APRN.MRI MANAGER - 12/14/2023 11:31 AM EDT Order for physical therapy has been placed. Will be faxed to [facility]. Miryam Orozco APRN.CJ [facility]09-09-2024 Miscellaneous Notes* Telephone Encounter - Miryam Orozco APRN.CNP - 12/14/2023 11:31 AM EDT Order for physical therapy has been placed. Will be faxed to [facility]. Miryam Orozco APRN.CJ * Telephone Encounter - Minna Blue LPN - 12/14/2023 10:36 AM EDT Pt came to window requesting a order for Physical Therapy due to frequent falls. She would like it faxed to [facility]. Minna Blue LPN documented in this encounterLima City Hospital09-09-2024 Telephone encounter Note * Telephone Encounter - Minna Blue LPN - 12/14/2023 10:36 AM EDT Pt came to window requesting a order for Physical Therapy due to frequent falls. She would like it faxed to [facility]. Minna Blue LPN [facility]09-06-2024 Telephone encounter Note* Telephone Encounter - Lizy Capone MD - 12/11/2023 10:01 AM EDT OK to refill as ordered Lizy Capone MD [facility]09-06-2024 Miscellaneous Notes* Telephone Encounter - Lizy Capone MD - 12/11/2023 10:01 AM EDT OK to refill as ordered Lizy Capone MD * Telephone Encounter - Adrianjarad Isabell Dove - 12/11/2023 9:31 AM EDT Prescription Refill [...] 11, 2023 9:32 AM documented in this encounterLima City Hospital09-06-2024 Telephone encounter Note * Telephone Encounter [...] Isabell Dove December 11, 2023 9:32 AM [facility]08-30-2024 NoteHNO ID: [id number] Author: STARR SOLANO MD Service: ? Author [...] L1 SAB0 IAB0 Ectopic0 Multiple0 Live Births0 Glue Jointer 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 LMP: Postmenopausal Age at Menarche: Age at First : Age at Menopause: Glue Jointer 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 Comments: Sexual Activity: Never; No partner [...] and thrombophlebitis of femoral vein (deep) (superficial) ([facility]) No date: Unspecified sleep apnea PAST SURGICAL HISTORY 04/2004,05/11: ANESTHESIA HERNIA REPAIR LOWER ABDOMEN NOS Comment: gortex put in on 05/11 then taken out06/08 1990: ARTHRP KNE CONDYLEANDPLATU MEDIALANDLAT COMPARTMENTS Comment: bilateral total knee s(Racine) 10/24/04 : ARTHRP KNE CONDYLEANDPLATU MEDIALANDLAT COMPARTMENTS Comment: bilateral total knee revisions No date: DELIVERY ONLY Comment: , low cervical No date: CHOLECYSTECTOMY 11/17/2017: COLONOSCOPY FLX DX W/COLLJ SPEC WHEN PFRMD Comment: Colonoscopy 02/17/07: DEBRIDEMENT SUBCUTANEOUS TISSUE 20 SQ CM/< Comment: LEFT LEG [id number]: DEBRIDEMENT SUBCUTANEOUS TISSUE 20 SQ CM/< Comment: LEFT LEG [id number]: DEBRIDEMENT SUBCUTANEOUS TISSUE 20 SQ CM/< Comment: LEFT LEG [id number]: DEBRIDEMENT SUBCUTANEOUS TISSUE 20 SQ CM/< Comment: LEFT LEG [id number]: DEBRIDEMENT SUBCUTANEOUS TISSUE 20 SQ CM/< Comment: [...] mg 24 hr tablet Take by mouth. Asitsscflqd-Xrgkalxxp-Znm C- (more content not included)...[facility]08-30-2024 History of Present illness Narrative* Starr [...] L1 SAB0 IAB0 Ectopic0 Multiple0 Live Births0 Glue Jointer 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 LMP: Postmenopausal Age at Menarche: Age at First : Age at Menopause: Glue Jointer 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 Comments: Sexual Activity: Never; No partner [...] CONDYLE&PLATU MEDIAL&LAT COMPARTMENTS Comment: bilateral total knee s(Racine) 10/24/04 : ARTHRP KNE CONDYLE&PLATU MEDIAL&LAT COMPARTMENTS Comment: bilateral total knee revisions No date: DELIVERY ONLY Comment: , low cervical No date: CHOLECYSTECTOMY 11/17/2017: COLONOSCOPY FLX DX W/COLLJ SPEC WHEN PFRMD Comment: Colonoscopy 02/17/07: DEBRIDEMENT SUBCUTANEOUS TISSUE 20 SQ CM/< Comment: LEFT LEG [id number]: DEBRIDEMENT SUBCUTANEOUS TISSUE 20 SQ CM/< Comment: LEFT LEG [id number]: DEBRIDEMENT SUBCUTANEOUS TISSUE 20 SQ CM/< Comment: LEFT LEG [id number]: DEBRIDEMENT SUBCUTANEOUS TISSUE 20 SQ CM/< Comment: LEFT LEG [id number]: DEBRIDEMENT SUBCUTANEOUS TISSUE 20 SQ CM/< Comment: [...] mg 24 hr tablet Take by mouth. Lseqdpidwor-Fnfdicmze-Snt C-Mn (GLUCOSAMINE CHONDROITIN MAXSTR) 500-400 mg cap Take 1 capsule by mouth three times daily. COMPOUNDED PRESCRIPTION Stair lift DAILY-LUISITO tablet TAKE 1 TABLET BY MOUTH ONCE DAILY. lbkuizr-zcozlmwiu-bqjeaqx D3 (CALCIUM 500+D) 500 mg(1,250mg) -200 unit [...] which included preparing to see the patient, uodr-ia-qbbt patient care, completing clinical documentation, obtaining and/or reviewing separately obtained history, performing a medically appropriate examination, and counseling and educating the patient/family/caregiver. Starr Broderick MD documented in this encounterLima [facility] Hospital08-14-2024 Telephone encounter Note * Telephone Encounter - Jorje Nagel LPN - 11/18/2023 11:25 AM EDT Attempted to contact patient to follow up after procedure. Left a brief message asking patient to return call if they have any questions or concerns. Jorje Nagel LPN [facility]08-14-2024 Miscellaneous Notes* Telephone Encounter - Jorje Nagel LPN - 11/18/2023 11:25 AM EDT Attempted to contact patient to follow up after procedure. Left a brief message asking patient to return call if they have any questions or concerns. Jorje Nagel LPN documented in this encounterLima City Hospital08-12-2024 Nurse Note* Rom Cano LPN - [...] ambulatory method. Patient left in good condition. [facility] Nurse Note* Rom Cano LPN - [...] tablePatient s procedure was performed in an [facility] Procedure room. Pause completed at each [...] allergies Procedure Start: 1044 Procedure End: 1054 * Mago Downing LPN - 11/16/2023 9:58 AM EDT Electronics Manufacturer's Name: Javed Sawyer Are you on a [...] to receive one? n documented in this encounterLima City Hospital08-12-2024 Instructions* Patient Instructions* Rom Cano LPN [...] emergency care and why. documented in this encounterLima [facility] Hospital08-12-2024 Nurse Note* Amada Velasco LPN - 11/16/2023 10:22 AM EDT Procedure to be performed: Unilateral Right SUPRASCAPULAR RADIOFREQUENCY ABLATION Patient was wheeled on stretcher from pre op bay to procedure room and assisted onto the procedure tablePatient s procedure was performed in an [facility] Procedure room. Pause completed at each [...] allergies Procedure Start: 1044 Procedure End: 1054 [facility]08-12-2024 NoteHNO ID: [id number] Author: ROQUE DELGADO MD Service: ? Author Type: Physician Type: Progress Notes Filed: 11/16/2023 11:10 Note Text: [facility] Date: 11/16/2023 Patient name: Mari Lopez Physician [...] or double vision) Respiratory: Negative (No Cough, Stzmllllx-cg-jfdxry, Dyspnea on exertion, wheezing) Cardiovascular: Negative (No [...] CONDYLEANDPLATU MEDIALANDLAT COMPARTMENTS Comment: bilateral total knee s(Racine) 10/24/04 : ARTHRP MELONYE CONDYLEANDPLATU MEDIALANDLAT COMPARTMENTS Comment: bilateral total knee revisions No date: DELIVERY ONLY Comment: , low cervical No date: CHOLECYSTECTOMY 11/17/2017: COLONOSCOPY FLX DX W/COLLJ SPEC WHEN PFRMD Comment: Colonoscopy 02/17/07: DEBRIDEMENT SUBCUTANEOUS TISSUE 20 SQ CM/< Comment: LEFT LEG [id number]: DEBRIDEMENT SUBCUTANEOUS TISSUE 20 SQ CM/< Comment: LEFT LEG [id number]: DEBRIDEMENT SUBCUTANEOUS TISSUE 20 SQ CM/< Comment: LEFT LEG [id number]: DEBRIDEMENT SUBCUTANEOUS TISSUE 20 SQ CM/< Comment: LEFT LEG [id number]: DEBRIDEMENT SUBCUTANEOUS TISSUE 20 SQ CM/< Comment: [...] 10:13 AM EDT [facility] Date: 11/16/2023 Patient name: Mari Lopez Physician [...] or double vision) Respiratory: Negative (No Cough, Qtvpvhmzk-jw-dwtdcy, Dyspnea on exertion, wheezing) Cardiovascular: Negative (No [...] CONDYLE&PLATU MEDIAL&LAT COMPARTMENTS Comment: bilateral total knee s(Racine) 10/24/04 : ARTHRP KNE CONDYLE&PLATU MEDIAL&LAT COMPARTMENTS Comment: bilateral total knee revisions No date: DELIVERY ONLY Comment: , low cervical No date: CHOLECYSTECTOMY 11/17/2017: COLONOSCOPY FLX DX W/COLLJ SPEC WHEN PFRMD Comment: Colonoscopy 02/17/07: DEBRIDEMENT SUBCUTANEOUS TISSUE 20 SQ CM/< Comment: LEFT LEG [id number]: DEBRIDEMENT SUBCUTANEOUS TISSUE 20 SQ CM/< Comment: LEFT LEG [id number]: DEBRIDEMENT SUBCUTANEOUS TISSUE 20 SQ CM/< Comment: LEFT LEG [id number]: DEBRIDEMENT SUBCUTANEOUS TISSUE 20 SQ CM/< Comment: LEFT LEG [id number]: DEBRIDEMENT SUBCUTANEOUS TISSUE 20 SQ CM/< Comment: [...] mg 24 hr tablet Take by mouth. Utuxrgxwqbh-Tlujmpftq-Efc C-Mn (GLUCOSAMINE CHONDROITIN MAXSTR) 500-400 mg cap Take 1 capsule by mouth three times daily. COMPOUNDED PRESCRIPTION Stair lift DAILY-LUISITO tablet TAKE 1 TABLET BY MOUTH ONCE DAILY. nyyacoq-rdcvprpfe-nquxyin D3 (CALCIUM 500+D) 500 mg(1,250mg) -200 unit [...] appropriate Assessment and Plan: As noted above [place] protocol documentation / Pre-Procedure Checklist: Consent: Obtained [...] [facility] * Mago Downing LPN - 11/16/2023 10:06 [...] patient is not nervous/anxious. documented in this encounterLima City Hospital08-12-2024 NoteHNO ID: [id number] Author: MAGO DOWNING LPN Service: ? Author [...] Downing LPN - 11/16/2023 9:58 AM EDT Electronics Manufacturer's Name: Javed Sawyer Are you on a [...] are you scheduled to receive one? n [facility]08-05-2024 Instructions* Patient Instructions* Miryam Orozco APRN.CNP - 11/09/2023 9:32 AM EDT Hold amlodipine/norvasc 5mg Monitor blood pressure, goal 130/80 or less Continue to take current medications Get repeat labs completed, prior to next office visit Keep scheduled appointments with specialists Monitor left lower leg, call the office if you notice any redness or skin is hot to touch documented in this encounterLima City Hospital08-05-2024 History of Present illness Narrative* Miryam [...] Was hospitalized recently due to fecal impaction, [facility]. Doing well since discharge. Taking Miralax daily. [...] and thrombophlebitis of femoral vein (deep) (superficial) ([facility]) No date: Unspecified sleep apnea PAST SURGICAL HISTORY 04/2004,05/11: ANESTHESIA HERNIA REPAIR LOWER ABDOMEN NOS Comment: gortex put in on 05/11 then taken out06/08 1990: ARTHRP KNE CONDYLE&PLATU MEDIAL&LAT COMPARTMENTS Comment: bilateral total knee s(Racine) 10/24/04 : ARTHRP KNE CONDYLE&PLATU MEDIAL&LAT COMPARTMENTS Comment: bilateral total knee revisions No date: DELIVERY ONLY Comment: , low cervical No date: CHOLECYSTECTOMY 11/17/2017: COLONOSCOPY FLX DX W/COLLJ SPEC WHEN PFRMD Comment: Colonoscopy 02/17/07: DEBRIDEMENT SUBCUTANEOUS TISSUE 20 SQ CM/< Comment: LEFT LEG [id number]: DEBRIDEMENT SUBCUTANEOUS TISSUE 20 SQ CM/< Comment: LEFT LEG [id number]: DEBRIDEMENT SUBCUTANEOUS TISSUE 20 SQ CM/< Comment: LEFT LEG [id number]: DEBRIDEMENT SUBCUTANEOUS TISSUE 20 SQ CM/< Comment: LEFT LEG [id number]: DEBRIDEMENT SUBCUTANEOUS TISSUE 20 SQ CM/< Comment: [...] mg 24 hr tablet Take by mouth. Nxvlxpoevob-Nvrbtawmf-Cvn C-Mn (GLUCOSAMINE CHONDROITIN MAXSTR) 500-400 mg cap Take 1 capsule by mouth three times daily. COMPOUNDED PRESCRIPTION Stair lift DAILY-LUISITO tablet TAKE 1 TABLET BY MOUTH ONCE DAILY. rofgkan-ntagyenic-wtoyukt D3 (CALCIUM 500+D) 500 mg(1,250mg) -200 unit [...] discussed and patient voices understanding. Miryam Orozco APRN.MRI MANAGER This note was partially generated using [employer] recognition system. Note was reviewed for accuracy. There may be minor misspellings or grammar miscues with [employer] voice recognition. documented in this encounterLima City Hospital08-05-2024 NoteHNO ID: [id number] Author: MIRYAM OROZCO APRN.CJ Service: ? Author Type: Nurse Practitioner [...] Was hospitalized recently due to fecal impaction, [facility]. Doing well since discharge. Taking Miralax daily. [...] CONDYLEANDPLATU MEDIALANDLAT COMPARTMENTS Comment: bilateral total knee s(Racine) 10/24/04 : ARTHRP KNE CONDYLEANDPLATU MEDIALANDLAT COMPARTMENTS Comment: bilateral total knee revisions No date: DELIVERY ONLY Comment: , low cervical No date: CHOLECYSTECTOMY 11/17/2017: COLONOSCOPY FLX DX W/COLLJ SPEC WHEN PFRMD Comment: Colonoscopy 02/17/07: DEBRIDEMENT SUBCUTANEOUS TISSUE 20 SQ CM/< Comment: LEFT LEG [id number]: DEBRIDEMENT SUBCUTANEOUS TISSUE 20 SQ CM/< Comment: LEFT LEG [id number]: DEBRIDEMENT SUBCUTANEOUS TISSUE 20 SQ CM/< Comment: LEFT LEG [id number]: DEBRIDEMENT SUBCUTANEOUS TISSUE 20 SQ CM/< Comment: LEFT LEG [id number]: DEBRIDEMENT SUBCUTANEOUS TISSUE 20 SQ CM/< Comment: [...] 1,000 mg by mouth (more content not included)...[facility]07-24-2024 Telephone encounter Note* Telephone Encounter - [...] No 9. Does this procedure require a milk pickup driver? Yes If yes, has patient been notified that a milk pickup driver is needed and must be present [...] dose of the COVID vaccine.) Gonzalo Holland [facility]07-24-2024 Miscellaneous Notes* Telephone Encounter - Gonzalo [...] No 9. Does this procedure require a milk pickup driver? Yes If yes, has patient been notified that a milk pickup driver is needed and must be present [...] COVID vaccine.) Gonzalo Holland documented in this encounterLima [facility] Hospital07-23-2024 Telephone encounter Note * Telephone Encounter - Sofía rCowe - 10/27/2023 4:19 PM EDT ----- Message [...] other than patient: n/a Best contact number: [phone] Thank you, Francine De Souza October 27, 2023 4:09 PM [facility]07-23-2024 Miscellaneous Notes* Telephone Encounter - Sofía [...] other than patient: n/a Best contact number: [phone] Thank you, Francine De Souza October 27, 2023 4:09 PM documented in this encounterLima City Hospital06-24-2024 Telephone encounter Note * Telephone Encounter - Lizy Capone MD - 09/28/2023 1:29 PM EDT OK to refill as ordered Lizy Capone MD [facility]06-24-2024 Miscellaneous Notes* Telephone Encounter - Lizy [...] Thank you. Kayla Castro. documented in this encounterLima City Hospital06-24-2024 Telephone encounter Note * Telephone Encounter [...] 01/28/2024 Please advise. Thank you. Kayla Castro. [facility]06-17-2024 Telephone encounter Note* Telephone Encounter - [...] was identified. 09/21/2023 by Miryam Orozco APRN.CNP [facility]06-17-2024 Miscellaneous Notes* Telephone Encounter - Miryam [...] Thank you. Quynh Sexton. documented in this encounterLima City Hospital06-17-2024 Telephone encounter Note * Telephone Encounter [...] 01/28/2024 Please advise. Thank you. Quynh Sexton. [facility]05-23-2024 Telephone encounter Note* Telephone Encounter - Sofía Crowe - 08/27/2023 3:02 PM EDT ----- Message from Aaliyah Hoffman sent at 08/27/2023 2:59 PM EDT ----- Regarding: Spine/Uzqd-Xbs-Ujxvmdioy for Shoulder Patient: Mari Lopez Date of : 1940 Primary Care Provider: Lizy Capone MD Patient has been identified by name and Date of (Y/N): y Patient: Mari Lopez Date of : 1940 Provider for this encounter: Lizy Capone MD Reason for the call/escalation: Patient is wanting to do R shoulder injection with delgado Was Patient Referred to [facility]/Seek Emergency Treatment (Y/N): n/a Did Patient Agree (Y/N): n/a Was An Attempt Made To Transfer The Patient To The Office (Y/N): n/a Were You Able To Reach Someone At The Office (Y/N): n/a If Yes - Patient Was Transferred To (Caregivers Name): n/a If No - Which [facility] Leadership Rotary Driller Did You Speak With Regarding This Patient: n/a Was an appointment scheduled (Y/N): n Reason patient was requesting visit (RFV/signs and symptoms/diagnosis) : injection Person calling if other than patient: n/a Return call to if other than patient: n/a Best contact number: [phone] Thank you, Aaliyah Hoffman August 27, 2023 2:59 PM [facility]05-23-2024 Miscellaneous Notes* Telephone Encounter - Sofía Crowe - 08/27/2023 3:02 PM EDT ----- Message from Aaliyah Hoffman sent at 08/27/2023 2:59 PM EDT ----- Regarding: Spine/Upxw-Tgd-Mfdfxpmjb for Shoulder Patient: Mari Lopez Date of : 1940 Primary Care Provider: Lizy Capone MD Patient has been identified by name and Date of (Y/N): y Patient: Mari Lopez Date of : 1940 Provider for this encounter: Lizy Capone MD Reason for the call/escalation: Patient is wanting to do R shoulder injection with delgado Was Patient Referred to [facility]/Seek Emergency Treatment (Y/N): n/a Did Patient Agree (Y/N): n/a Was An Attempt Made To Transfer The Patient To The Office (Y/N): n/a Were You Able To Reach Someone At The Office (Y/N): n/a If Yes - Patient Was Transferred To (Caregivers Name): n/a If No - Which [facility] Leadership Rotary Driller Did You Speak With Regarding This Patient: n/a Was an appointment scheduled (Y/N): n Reason patient was requesting visit (RFV/signs and symptoms/diagnosis) : injection Person calling if other than patient: n/a Return call to if other than patient: n/a Best contact number: [phone] Thank you, Aaliyah Hoffman August 27, 2023 2:59 PM documented in this encounterLima City Hospital05-10-2024 Instructions* Patient Instructions* Keyana Greenberg PA-C - 08/14/2023 9:49 AM EDT Activity as tolerated Use Ice and/or heat as tolerated as needed documented in this encounterLima City Hospital05-10-2024 NoteHNO ID: [id number] Author: KEYANA GREENBERG PA-C Service: ? Author Type: Physician Tandem Operator Type: Progress Notes Filed: 08/14/2023 09:58 Note [...] or double vision) Respiratory: Negative (No Cough, Yrbcdfots-zf-tksuwb, Dyspnea on exertion, wheezing) Cardiovascular: Negative (No [...] Suprascapular Nerve under fluoroscopic guidance RIGHT-SIDED ? Electronics Manufacturer Needed: Nerve Blocks - YES (Exception: Occipital [...] ([place]) [facility] Management [facility] 08-14-2023 History of Present illness Narrative* Kyeana Greenberg PA-C - 08/14/2023 9:46 AM EDT [...] or double vision) Respiratory: Negative (No Cough, Urywmjorj-oa-rixlzd, Dyspnea on exertion, wheezing) Cardiovascular: Negative (No [...] - Suprascapular Nerve under fluoroscopic guidance RIGHT-SIDED Electronics Manufacturer Needed: Nerve Blocks - YES (Exception: Occipital [...] ([place]) Pain Management [facility] documented in this encounterLima City Hospital04-17-[facility]24 Instructions* Patient Instructions* Miryam Orozco APRN.MRI MANAGER - 07/22/2023 1:01 PM EDT Get repeat lab in 3 months to check kidney function Get repeat fasting labs in 6 months prior to next office visit. Continue to take all medication as prescribed Keep scheduled appointments with specialists. Follow up in 6 months or sooner as needed. documented in this encounterLima City Hospital04-17-2024 History of Present illness Narrative* Miryam Orozco APRN.CJ - 07/22/2023 12:40 PM EDT This is a 83 year old female who presents today with: Patient presents with: Follow Up: 3 month follow up HISTORY OF PRESENT ILLNESS: Mari Lopez is a 83 year old female. Patient presents with: Follow Up: 3 month follow up 3 month follow up Was hospitalized recently due to fecal impaction, [facility]. Doing well since discharge. Taking Miralax daily. [...] daily. CKD4: Following with Nephrology, Dr. Acosta [facility], switched to Dr. Gilmore. HTN: Taking Lisinopril/hctz [...] CONDYLE&PLATU MEDIAL&LAT COMPARTMENTS 1990 bilateral total knee s([place]) ARTHRP KNE CONDYLE&PLATU MEDIAL&LAT COMPARTMENTS 10/24/04 bilateral total knee revisions DELIVERY ONLY , low cervical CHOLECYSTECTOMY COLONOSCOPY FLX DX W/COLLJ SPEC WHEN PFRMD 11/17/2017 Colonoscopy DEBRIDEMENT SUBCUTANEOUS TISSUE 20 SQ CM/< 02/17/07 LEFT LEG DEBRIDEMENT SUBCUTANEOUS TISSUE 20 SQ CM/< [id number] LEFT LEG DEBRIDEMENT SUBCUTANEOUS TISSUE 20 SQ CM/< [id number] LEFT LEG DEBRIDEMENT SUBCUTANEOUS TISSUE 20 SQ CM/< [id number] LEFT LEG DEBRIDEMENT SUBCUTANEOUS TISSUE 20 SQ CM/< [id number] LEFT LEG DEBRIDEMENT SUBCUTANEOUS TISSUE 20 SQ [...] mg 24 hr tablet Take by mouth. Haebywclocn-Vizqcrkyh-Pnn C-Mn (GLUCOSAMINE CHONDROITIN MAXSTR) 500-400 mg cap Take 1 capsule by mouth three times daily. COMPOUNDED PRESCRIPTION Stair lift DAILY-LUISITO tablet TAKE 1 TABLET BY MOUTH ONCE DAILY. tkntssp-yawdcdfsn-yfvqhyy D3 (CALCIUM 500+D) 500 mg(1,250mg) -200 unit [...] kidney disease) stage 4, GFR 15-29 ml/min ([facility]) - ICD9: 585.4, ICD10: N18.4 - eGFR: 34 Stable - Counseled on avoiding NSAIDs, adequate hydration - Counseled on low sodium diet - Follow up with kidney medicine - Get repeat labs in 3 months and then in 6 months. - Lab results will be faxed to environmental project manager. - COMPREHENSIVE METABOLIC PANEL - COMPREHENSIVE METABOLIC [...] APRN.CJ This note was partially generated using eBureau voice recognition system. Note was reviewed for accuracy. There may be minor misspellings or grammar miscues with eBureau voice recognition. documented in this encounterLima City Hospital04-10-2024 Nurse Note* Sheila Carlson LPN - [...] tablePatient s procedure was performed in an [facility] Procedure room. Pause completed at each [...] Velasco LPN - 07/15/2023 8:36 AM EDT Electronics Manufacturer's Name: javed sawyer Are you on a [...] to receive one? n documented in this encounterLima City Hospital04-10-2024 NoteHNO ID: [id number] Author: ROQUE DELGADO MD Service: ? Author Type: Physician Type: Progress Notes Filed: 07/15/2023 09:52 Note Text: [facility] Date: 07/15/2023 Patient name: Mari Lopez Physician [...] or double vision) Respiratory: Negative (No Cough, Pzdrzpafo-qp-mcjonn, Dyspnea on exertion, wheezing) Cardiovascular: Negative (No [...] CONDYLEANDPLATU MEDIALANDLAT COMPARTMENTS 1990 bilateral total knee s([place]) ARTHRP KNE CONDYLEANDPLATU MEDIALANDLAT COMPARTMENTS 10/24/04 bilateral total knee revisions DELIVERY ONLY , low cervical CHOLECYSTECTOMY COLONOSCOPY FLX DX W/COLLJ SPEC WHEN PFRMD 11/17/2017 Colonoscopy DEBRIDEMENT SUBCUTANEOUS TISSUE 20 SQ CM/< 02/17/07 LEFT LEG DEBRIDEMENT SUBCUTANEOUS TISSUE 20 SQ CM/< [id number] LEFT LEG DEBRIDEMENT SUBCUTANEOUS TISSUE 20 SQ CM/< [id number] LEFT LEG DEBRIDEMENT SUBCUTANEOUS TISSUE 20 SQ CM/< [id number] LEFT LEG DEBRIDEMENT SUBCUTANEOUS TISSUE 20 SQ CM/< [id number] LEFT LEG DEBRIDEMENT SUBCUTANEOUS TISSUE 20 SQ [...] mg 24 hr tablet Take by mouth. Sabuprqwauq-Lwdiykjjv-Fhc C-Mn (GLUCOSAMINE CHONDROITIN MAXSTR) 500-400 mg cap Take 1 capsule by mouth three times daily. COMPOUNDED PRESCRIPTI (more content not included)...[facility] 07-15-2023 History of Present illness Narrative* Roque Delgado MD - 07/15/2023 8:49 AM EDT [facility] Date: 07/15/2023 Patient name: Mari Lopez Physician [...] or double vision) Respiratory: Negative (No Cough, Lxgfukgkb-am-rzomyq, Dyspnea on exertion, wheezing) Cardiovascular: Negative (No [...] and thrombophlebitis of femoral vein (deep) (superficial) ([facility]) Unspecified sleep apnea PAST SURGICAL HISTORY Procedure Laterality Date ANESTHESIA HERNIA REPAIR LOWER ABDOMEN NOS 04/2004,05/11 gortex put in on 05/11 then taken out06/08 ARTHRP KNE CONDYLE&PLATU MEDIAL&LAT COMPARTMENTS 1990 bilateral total knee s([place]) ARTHRP KNE CONDYLE&PLATU MEDIAL&LAT COMPARTMENTS 10/24/04 bilateral total knee revisions DELIVERY ONLY , low cervical CHOLECYSTECTOMY COLONOSCOPY FLX DX W/COLLJ SPEC WHEN PFRMD 11/17/2017 Colonoscopy DEBRIDEMENT SUBCUTANEOUS TISSUE 20 SQ CM/< 02/17/07 LEFT LEG DEBRIDEMENT SUBCUTANEOUS TISSUE 20 SQ CM/< [id number] LEFT LEG DEBRIDEMENT SUBCUTANEOUS TISSUE 20 SQ CM/< [id number] LEFT LEG DEBRIDEMENT SUBCUTANEOUS TISSUE 20 SQ CM/< [id number] LEFT LEG DEBRIDEMENT SUBCUTANEOUS TISSUE 20 SQ CM/< [id number] LEFT LEG DEBRIDEMENT SUBCUTANEOUS TISSUE 20 SQ [...] mg 24 hr tablet Take by mouth. Fasjkkmudrn-Aubhhabyi-Avm C-Mn (GLUCOSAMINE CHONDROITIN MAXSTR) 500-400 mg cap Take 1 capsule by mouth three times daily. COMPOUNDED PRESCRIPTION Stair lift DAILY-LUISITO tablet TAKE 1 TABLET BY MOUTH ONCE DAILY. owoaowr-pjmygfpkp-spcxxlz D3 (CALCIUM 500+D) 500 mg(1,250mg) -200 unit [...] appropriate Assessment and Plan: As noted above [place] protocol documentation / Pre-Procedure Checklist: Consent: Obtained [...] MBA Pain Management [facility] * Amada Velasco LPN - 07/15/2023 8:39 [...] patient is not nervous/anxious. documented in this encounterLima City Hospital04-10-2024 Instructions* Patient Instructions* Sheila Carlson LPN [...] emergency care and why. documented in this encounterLima City Hospital04-10-2024 NoteHNO ID: [id number] Author: AMADA VELASCO LPN Service: ? Author [...] call in. Shruthi Cole documented in this encounterLima City Hospital03-18-2024 Miscellaneous Notes* Telephone Encounter - Mulugeta Jennings APRN.CJ - 06/22/2023 10:16 AM EDT The following approved medication requests have been transmitted electronically. Requested Prescriptions Pending Prescriptions Disp Refills furosemide (LASIX) 40 mg tablet [Pharmacy Med Name: FUROSEMIDE 40 MG TABLET] 90 tablet 1 Sig: take 1 tablet by mouth every day Mulugeta Jennings APRN.MRI MANAGER * Telephone Encounter - Alfred Casanova LPN [...] you. Alfred Casanova LPN. documented in this encounterLima City Hospital03-12-2024 Miscellaneous Notes* Telephone Encounter - Samuel Maza MA - 06/16/2023 2:44 PM EDT Patient notified. Samuel Maza MA * Telephone Encounter - Roque Delgado MD - 06/16/2023 2:30 PM EDT Refill for Flexeril approved and sent to patient's preferred pharmacy. Roque Delgado III, MD, DENNIS documented in this encounterLima City Hospital03-05-2024 Discharge summary Author Ralph Haynes [facility] June 09, 2023 8:24am Note Date/Time June 09, 2023 8:20 am [facility] Medical Records Department [address] [place] [address] Discharge Summary 06/09/23 0820 MR#: [id number] Acct: [id number] Name: MARI LOPEZ Rep #:[id number] : 1940 82 From: Ralph Haynes MD PCP: BROOKLYN Aguillon Status:ADM I N Location: [place] [id number] Providers Date of Admission: 06/08/23 Date of [...] 50 mg PO DAILY 02/09/18 glucosamine 500 ce-smgqrygey-zhsjssph comp 400 mg-D3 667 unit-C-Mn cap 1 cap PO TID 10/17/19 hydrocortisone-pramoxine 2.5 %-1 % (4g) rectal cream 1 applic MD BID 10/17/19 zolpidem 10 mg tablet 10 [...] (Auto) 42.7 L, Lymph % (Auto) 39.0, [place] % (Auto) 8.9, Eos % (Auto) 8.5 [...] tablet 50 mg PO DAILY glucosamine 500 jt-qdyiyjmkc-znoryobo comp 400 mg-D3 667 unit-C-Mn cap 500-400-667 [...] Self Care Charges/Coding Visit Charges Inpatient E&M: 92461 Disch Hosp >30min 06/09/23 0824 <Electronically signed by Ralph Haynes MD> Cosigner Signature (if applicable): CC: BROOKLYN Orozco; Dr. Ralph Haynes MD~ Signed [facility] Work Phone: 1(815) 326-636303-05-2024 Progress note Author Ralph Haynes [facility] June 09, 2023 8:24am Note Date/Time June 09, 2023 7:46 am [facility] Medical Records Department [address] [place] [address] Progress Note - Hospitalist 06/09/23 0746 MR#: [id number] Acct: [id number] Name: MARI LOPEZ Rep #:[id number] : 1940 82 From: Ralph Haynes MD PCP: Miryam Orozco STOPER-C Status:ADM I N Location: [place] [address] Reason for Visit Reason for Visit: Diagnoses [...] (Auto) 42.7 L, Lymph % (Auto) 39.0, [place] % (Auto) 8.9, Eos % (Auto) 8.5 [...] Cosigner Signature (if applicable): CC: ~ Signed [facility] Work Phone: 1(739) 695-606003-04-2024 Progress note Author Ralph Haynes [facility] June 08, 2023 8:46am Note Date/Time June 08, 2023 8:43 am [facility] Medical Records Department [address] [place] [address] Progress Note - Hospitalist 06/08/23837 MR#: [id number] Acct: [id number] Name: MARI LOPEZ Rep #:[id number] : 1940 82 From: Ralph Haynes MD PCP: BROOKLYN Aguillon Status:ADM I N Location: [place] [address] Reason for Visit Reason for Visit: Diagnoses [...] 74.9 H, Lymph % (Auto) 14.2 L, [place] % (Auto) 5.8, Eos % (Auto) 3.9, [...] (Auto) 69.9, Lymph % (Auto) 18.6 L, [place] % (Auto) 6.7, Eos % (Auto) 3.8, [...] documentation,50 Minutes Charges/Coding Visit Charges Inpatient E&M: 80545 Subs Hosp L3 06/08/23 0846 <Electronically signed by Ralph Haynes MD> Cosigner Signature (if applicable): CC: ~ Signed [facility] Work Phone: 1(983) 129-622603-04-2024 History and physical note Author Ralph Smith [facility] June 08, 2023 4:54am Note Date/Time June 07, 2023 11:4 1pm [facility] Medical Records Department [address] [place] [address] H&P Exam - Hospitalist 06/07/23 2334 MR#: [id number] Acct: [id number] Name: MARI LOPEZ Rep #:[id number] : 1940 82 From: Ralph Wei DO PCP: BROOKLYN Aguillon Status:ADM I N [place] [facility] [id number] HPI - General General Date of Admission: [...] osteoarthritis; s/p bilateral TKR who presents to [facility] ER complaining of abdominal pain and constipation. [...] expected to be greater than 48 hours. [facility] Medical History (HFpEF) heart failure with [...] 02/09/18 [History Last Taken Unknown] glucosamine 500 pu-bajcnchmk-jrakyylp comp 400 mg-D3 667 unit-C-Mn cap 1 cap PO TID 10/17/19 [History Last Taken Unknown] hydrocortisone-pramoxine 2.5 %-1 % (4g) rectal cream 1 applic MD BID 10/17/19 [History Last Taken Unknown] zolpidem [...] 74.9 H, Lymph % (Auto) 14.2 L, [place] % (Auto) 5.8, Eos % (Auto) 3.9, [...] 55 minutes. Charges/Coding Visit Charges Inpatient E&M: 17404 Init Hosp L2 06/08/23 045 <Electronically signed by Ralph Wheeler DO> Cosigner Signature (if applicable): CC: BROOKLYN Orozco; Dr. Ralph Wheeler DO~ Signed [facility] Work Phone: 1(283) 954-409803-04-2024 Discharge summary Author Judson Toney [facility] June 07, 2023 11:43pm Note Date/Time June 07, 2023 7:27 pm [facility] Medical Records Department [address] [place] [address] Emergency Department Summary 06/07/23 MR#: [id number] Acct: [id number] Name: MARI LOPEZ Rep #:[id number] : 1940 82 From: Weston BELLAMY PCP: [...] throughout the day. No history of obstruction. [facility] <MIA Hodge - Last Filed: 06/07/23 21:37> [facility] Medical History (HFpEF) heart failure with [...] 02/09/18 [History Last Taken Unknown] glucosamine 500 ks-brgeyfzxr-fowruvjd comp 400 mg-D3 667 unit-C-Mn cap 1 cap PO TID 10/17/19 [History Last Taken Unknown] hydrocortisone-pramoxine 2.5 %-1 % (4g) rectal cream 1 applic MD BID 10/17/19 [History Last Taken Unknown] zolpidem [...] Method Room Air Room Air Room Air [facility] <MIA Hodge - Last Filed: 06/07/23 21:37> [facility] Narrative Medical decision making narrative: Differential: Constipation, [...] 74.9 H Lymph % (Auto) 14.2 L [place] % (Auto) 5.8 Eos % (Auto) 3.9 [...] Toney, DO - Last Filed: 06/07/23 23:43> [facility] Narrative Medical decision making narrative: Differential: Constipation, [...] is feels like she could still go "a little bit". I did speak with the general surgeon on-call Dr. Thrasher who reviewed the patient's imaging and recommended using suppositories/enemas and admitting to medicine for observation. Pt was resuscited with 2L of NS. Given the patient's acute kidney injury, evidence of fecal impaction and constipation we will admit the patient to [facility] as a full admit. Discussed with Dr. [...] management plan. This note was generated with Cortheraation software. It may contain incorrectwords, spelling, and [...] 74.9 H Lymph % (Auto) 14.2 L [place] % (Auto) 5.8 Eos % (Auto) 3.9 [...] tablet 50 mg PO DAILY glucosamine 500 fj-kqdueygce-rzhwxgay comp 400 mg-D3 667 unit-C-Mn cap 500-400-667 [...] your Primary Care Provider. Call [facility] ([phone]) or report to the closest Emergency Room. Call 911 if necessary. 06/07/23 1409 <Electronically signed by Weston BELLAMY> Cosigner Signature (if applicable): 06/07/23 2343 <Electronically signed by Judson Toney DO> CC: LILLIAM-C Miryam Orozco ~ Signed [facility] Work Phone: 1(966) 966-774303-03-2024 Discharge summary Author Judson Toney [facility] June 07, 2023 11:43pm Note Date/Time June 07, 2023 7:27 pm [facility] Medical Records Department [address] [place] [address] Emergency Department Summary 06/07/23 MR#: [id number] Acct: [id number] Name: MARI LOPEZ Rep #:[id number] : 1940 82 From: Weston BELLAMY PCP: [...] <MIA Hodge - Last Filed: 06/07/23 21:37> [facility] Medical History (HFpEF) heart failure with [...] 02/09/18 [History Last Taken Unknown] glucosamine 500 zh-iafzzhnxd-zprqpwvo comp 400 mg-D3 667 unit-C-Mn cap 1 cap PO TID 10/17/19 [History Last Taken Unknown] hydrocortisone-pramoxine 2.5 %-1 % (4g) rectal cream 1 applic MD BID 10/17/19 [History Last Taken Unknown] zolpidem [...] Method Room Air Room Air Room Air [facility] <MIA Hodge - Last Filed: 06/07/23 21:37> [facility] Narrative Medical decision making narrative: Differential: Constipation, [...] 74.9 H Lymph % (Auto) 14.2 L [place] % (Auto) 5.8 Eos % (Auto) 3.9 [...] Toney, DO - Last Filed: 06/07/23 23:43> [facility] Narrative Medical decision making narrative: Differential: Constipation, [...] is feels like she could still go "a little bit". I did speak with the general surgeon on-call Dr. Thrasher who reviewed the patient's imaging and recommended using suppositories/enemas and admitting to medicine for observation. Pt was resuscited with 2L of NS. Given the patient's acute kidney injury, evidence of fecal impaction and constipation we will admit the patient to [facility] as a full admit. Discussed with Dr. [...] management plan. This note was generated with eBureau dictation software. It may contain incorrectwords, spelling, [...] 74.9 H Lymph % (Auto) 14.2 L [place] % (Auto) 5.8 Eos % (Auto) 3.9 [...] tablet 50 mg PO DAILY glucosamine 500 em-hajyyejss-urrrcazp comp 400 mg-D3 667 unit-C-Mn cap 500-400-667 [...] your Primary Care Provider. Call [facility] ([phone]) or report to the closest Emergency Room. Call 911 if necessary. 06/07/232136 <Electronically signed by Weston BELLAMY> Cosigner Signature (if applicable): 06/07/23 2343 <Electronically signed by Judson Toney DO> CC: STOPERRonald Orozco ~ Signed [facility] Work Phone: 1(771) 576-894502-29-2024 Miscellaneous Notes* Telephone Encounter - Lora Valles LPN - 06/04/2023 1:40 PM EST Spoke with patient and updated her. Lora Valles LPN * Telephone Encounter - Rebekah Bobo APRN.CNP - 06/04/2023 1:31 PM EST oarrs was checked- no medication discrepancy or aberrations noted Xanax sent Rebekah Bobo APRN.CJ * Telephone Encounter - Jennifer De Leon - 06/04/2023 1:21 PM EST Patient would like a prescription for xanax called into pharmacy to take for RFA. Instructed patient to pharmacy picking technician and bring to appointment as it must be taken under the supervision of our clinical staff. Also instructed patient to arrive 45 minutes early to appointment and that milk pickup driver must stay for the entirety of [...] Yes 9. Does this procedure require a milk pickup driver? Yes If yes, has patient been notified that a milk pickup driver is needed and must be present [...] vaccine.) Jennifer De Leon documented in this encounterLima City Hospital02-27-2024 History of Present illness Narrative* Rebekah Bobo APRN.MRI MANAGER - 06/02/2023 10:15 AM EST VIRTUAL VISIT PROGRESS NOTE This is a virtual visit using Audio Only Visit. It required patient-provider interaction for the medical decision making as documented below. I have communicated my name and active licensure. The patient's identity and physical location wereverified at the time of this visit. Either the patient or their legal passenger relations representative has been informed of the risks [...] the RFA here. Ht 157.5 cm (5' 2") Wt 98.9 kg (218 lb) BMI 39.87 [...] and thrombophlebitis of femoral vein (deep) (superficial) ([facility]) Unspecified sleep apnea PAST SURGICAL HISTORY Procedure Laterality Date ANESTHESIA HERNIA REPAIR LOWER ABDOMEN NOS 04/2004,05/11 gortex put in on 05/11 then taken out06/08 ARTHRP KNE CONDYLE&PLATU MEDIAL&LAT COMPARTMENTS 1990 bilateral total knee s([place]acine) ARTHRP KNE CONDYLE&PLATU MEDIAL&LAT COMPARTMENTS 10/24/04 bilateral total knee revisions DELIVERY ONLY , low cervical CHOLECYSTECTOMY COLONOSCOPY FLX DX W/COLLJ SPEC WHEN PFRMD 11/17/2017 Colonoscopy DEBRIDEMENT SUBCUTANEOUS TISSUE 20 SQ CM/< 02/17/07 LEFT LEG DEBRIDEMENT SUBCUTANEOUS TISSUE 20 SQ CM/< [id number] LEFT LEG DEBRIDEMENT SUBCUTANEOUS TISSUE 20 SQ CM/< [id number] LEFT LEG DEBRIDEMENT SUBCUTANEOUS TISSUE 20 SQ CM/< [id number] LEFT LEG DEBRIDEMENT SUBCUTANEOUS TISSUE 20 SQ CM/< [id number] LEFT LEG DEBRIDEMENT SUBCUTANEOUS TISSUE 20 SQ [...] mg 24 hr tablet Take by mouth. Nevyodbyrmh-Bhnwomolf-Mtc C-Mn (GLUCOSAMINE CHONDROITIN MAXSTR) 500-400 mg cap Take 1 capsule by mouth three times daily. COMPOUNDED PRESCRIPTION Stair lift DAILY-LUISITO tablet TAKE 1 TABLET BY MOUTH ONCE DAILY. iuducht-orpecuuxh-dcoqhpr D3 (CALCIUM 500+D) 500 mg(1,250mg) -200 unit [...] which included preparing to see the patient, sten-sj-zgky patient care, completing clinical documentation, and ordering medications, tests, orprocedures Rebekah Bobo APRN.CNP I have communicated my name and active licensure. The patient's identity and physical location wereverified at the time of this visit. Either the patient or their legal passenger relations representative has been informed of the risks and benefits of -- and alternatives to -- treatment through a remote evaluation andconsents to proceed with the evaluation remotely. documented in this encounterLima City Hospital02-27-2024 NoteHNO ID: [id number] Author: REBEKAH BOBO APRN.CNP Service: ? Author [...] visit. Either the patient or their legal passenger relations representative has been informed of the risks [...] the RFA here. Ht 157.5 cm (5' 2") Wt 98.9 kg (218 lb) BMI 39.87 [...] and thrombophlebitis of femoral vein (deep) (superficial) ([facility]) Unspecified sleep apnea PAST SURGICAL HISTORY Procedure Laterality Date ANESTHESIA HERNIA REPAIR LOWER ABDOMEN NOS 04/2004,05/11 gortex put in on 05/11 then taken out06/08 ARTHRP KNE CONDYLEANDPLATU MEDIALANDLAT COMPARTMENTS 1990 bilateral total knee s([place]acine) ARTHRP KNE CONDYLEANDPLATU MEDIALANDLAT COMPARTMENTS 10/24/04 bilateral total knee revisions DELIVERY ONLY , low cervical CHOLECYSTECTOMY COLONOSCOPY FLX DX W/COLLJ SPEC WHEN PFRMD 11/17/2017 Colonoscopy DEBRIDEMENT SUBCUTANEOUS TISSUE 20 SQ CM/< 02/17/07 LEFT LEG DEBRIDEMENT SUBCUTANEOUS TISSUE 20 SQ CM/< [id number] LEFT LEG DEBRIDEMENT SUBCUTANEOUS TISSUE 20 SQ CM/< [id number] LEFT LEG DEBRIDEMENT SUBCUTANEOUS TISSUE 20 SQ CM/< [id number] LEFT LEG DEBRIDEMENT SUBCUTANEOUS TISSUE 20 SQ CM/< [id number] LEFT LEG DEBRIDEMENT SUBCUTANEOUS TISSUE 20 SQ [...] mg 24 hr tablet Take by mouth. Yrbmyfuvaqu-Cmppaqijl-Oue C-Mn (GLUCOSAMINE CHONDROITIN MAXSTR) 500-400 mg cap Take 1 capsule by mouth three times daily. COMPOUNDED PRESCRIPTION Stair lift DAILY-LUISITO tablet TAKE 1 TABLET BY MOUTH ONCE DAILY. ckvcjme-hwufgxcrj-pmgdtjf D3 (CALCIUM 500+D) 500 mg(1,250m (more content not included)...[facility]02-[facility] Instructions* Patient Instructions* Rebekah Bobo APRN.CJ - 06/02/2023 7:01 AM EST Ice and heat as tolerated Activity as tolerated documented in this encounterLima City Hospital02-14-2024 Miscellaneous Notes* Telephone Encounter - Jorje Nagel LPN - 05/20/2023 1:34 PM EST Spoke with patient following up from procedure. Patient states they are doing well, no questions orconcerns at this time. Jorje Nagel LPN documented in this encounterLima City Hospital02-12-2024 Instructions* Patient Instructions* Carolann Marx LPN [...] emergency care and why. documented in this encounterLima City Hospital02-12-2024 NoteHNO ID: [id number] Author: CAROLANN MARX LPN Service: ? Author [...] 1:14 PM EST [facility] Patient name: Mari Lopez Date of : 1940 Today's date: 05/18/2023 Purpose: Ultrasound-guided injection Electrician'S Assistant: Roque Delgado M.D., M.B.A Diagnosis: (M19.011, M19.012) [...] or double vision) Respiratory: Negative (No Cough, Vqkvhqeks-ze-jnstyh, Dyspnea on exertion, wheezing) Cardiovascular: Negative (No [...] CONDYLE&PLATU MEDIAL&LAT COMPARTMENTS 1990 bilateral total knee s(Racine) ARTHRP KNE CONDYLE&PLATU MEDIAL&LAT COMPARTMENTS 10/24/04 bilateral total knee revisions DELIVERY ONLY , low cervical CHOLECYSTECTOMY COLONOSCOPY FLX DX W/COLLJ SPEC WHEN PFRMD 11/17/2017 Colonoscopy DEBRIDEMENT SUBCUTANEOUS TISSUE 20 SQ CM/< 02/17/07 LEFT LEG DEBRIDEMENT SUBCUTANEOUS TISSUE 20 SQ CM/< [id number] LEFT LEG DEBRIDEMENT SUBCUTANEOUS TISSUE 20 SQ CM/< [id number] LEFT LEG DEBRIDEMENT SUBCUTANEOUS TISSUE 20 SQ CM/< [id number] LEFT LEG DEBRIDEMENT SUBCUTANEOUS TISSUE 20 SQ CM/< [id number] LEFT LEG DEBRIDEMENT SUBCUTANEOUS TISSUE 20 SQ [...] mg 24 hr tablet Take by mouth. Sybvstrrbro-Uvhkcjzyc-Tdf C-Mn (GLUCOSAMINE CHONDROITIN MAXSTR) 500-400 mg cap Take 1 capsule by mouth three times daily. COMPOUNDED PRESCRIPTION Stair lift DAILY-LUISITO tablet TAKE 1 TABLET BY MOUTH ONCE DAILY. lasabhl-uybgokbgr-mnhiuxi D3 (CALCIUM 500+D) 500 mg(1,250mg) -200 unit [...] appropriate Assessment and Plan: As noted above [place] protocol documentation / Pre-Procedure Checklist: Consent: Obtained [...] DENNIS Pain Management [facility] * Rom Cano LPN - 05/18/2023 1:04 [...] patient is not nervous/anxious. documented in this encounterLima City Hospital02-12-2024 NoteHNO ID: [id number] Author: ROQUE DELGADO MD Service: ? Author Type: Physician Type: Progress Notes Filed: 05/18/2023 13:48 Note Text: [facility] Patient name: Mari Lopez Date of : 1940 Today's date: 05/18/2023 Purpose: Ultrasound-guided injection Electrician'S Assistant: Roque Delgado M.D., M.B.A Diagnosis: (M19.011, M19.012) [...] or double vision) Respiratory: Negative (No Cough, Revlkwlae-ht-pgnpkc, Dyspnea on exertion, wheezing) Cardiovascular: Negative (No [...] CONDYLEANDPLATU MEDIALANDLAT COMPARTMENTS 1990 bilateral total knee s(Racine) ARTHRP KNE CONDYLEANDPLATU MEDIALANDLAT COMPARTMENTS 10/24/04 bilateral total knee revisions DELIVERY ONLY , low cervical CHOLECYSTECTOMY COLONOSCOPY FLX DX W/COLLJ SPEC WHEN PFRMD 11/17/2017 Colonoscopy DEBRIDEMENT SUBCUTANEOUS TISSUE 20 SQ CM/< 02/17/07 LEFT LEG DEBRIDEMENT SUBCUTANEOUS TISSUE 20 SQ CM/< [id number] LEFT LEG DEBRIDEMENT SUBCUTANEOUS TISSUE 20 SQ CM/< [id number] LEFT LEG DEBRIDEMENT SUBCUTANEOUS TISSUE 20 SQ CM/< [id number] LEFT LEG DEBRIDEMENT SUBCUTANEOUS TISSUE 20 SQ CM/< [id number] LEFT LEG DEBRIDEMENT SUBCUTANEOUS TISSUE 20 SQ [...] tablePatient s procedure was performed in an [facility] Procedure room. Pause completed at each [...] Cano LPN - 05/18/2023 1:02 PM EST Electronics Manufacturer's Name: ALEX Are you on a blood [...] to receive one? N documented in this encounterLima City Hospital02-12-2024 NoteHNO ID: [id number] Author: ROM CANO LPN Service: ? Author [...] not nervous/anxious.[facility] 04-16-2023 NoteHNO ID: [id number] Author: KALEIGH RODNEY MA Service: ? Author Type: Head Golf Professional Type: Progress Notes Filed: 04/16/2023 08:43 Note [...] 31, 2023 11:25 AM documented in this encounterLima City Hospital12-26-2023 NoteHNO ID: [id number] Author: ROQUE DELGADO MD Service: ? Author Type: Physician Type: Progress Notes Filed: 04/16/2023 08:43 Note Text: [facility] Today's Date: 04/16/2023 Last visit: 01/15/2023 [...] current dose Flexeril 10mg TID PRN Functional Hinduism: No changes-continue current regimen Additional Studies: X-ray [...] - Initial HPI (Obtained by Avis Marrufo APRN.MRI MANAGER ). From 03/2022 - She previously inquired [...] 03-02-2023 History of Present illness Narrative* Rebekah Bobo APRN.CJ - 03/02/2023 3:45 PM EST VIRTUAL VISIT PROGRESS NOTE This is a virtual visit using Audio Only Visit. It required patient-provider interaction for the medical decision making as documented below. I have communicated my name and active licensure. The patient's identity and physical location wereverified at the time of this visit. Either the patient or their legal passenger relations representative has been informed of the risks [...] discuss possible SPR. Ht 157.5 cm (5' 2") Wt 104.3 kg (230 lb) BMI 42.07 kg/m DATE PROCEDURE IMPROVEMENT 02/16/2023 bilateral GHJ 50% HISTORY REVIEWED (electronic chart updated): PAST MEDICAL HISTORY Diagnosis Date Chronic airway obstruction, not elsewhere classified Essential hypertension, benign Insomnia 07/30/2011 Obesity, unspecified Open wound of knee, leg (except thigh), and ankle, complicated Other pulmonary embolism and infarction Phlebitis and thrombophlebitis of femoral vein (deep) (superficial) ([facility]) Unspecified sleep apnea PAST SURGICAL HISTORY Procedure Laterality Date ANESTHESIA HERNIA REPAIR LOWER ABDOMEN NOS 04/2004,05/11 gortex put in on 05/11 then taken out06/08 ARTHRP KNE CONDYLE&PLATU MEDIAL&LAT COMPARTMENTS 1990 bilateral total knee s(Racine) ARTHRP KNE CONDYLE&PLATU MEDIAL&LAT COMPARTMENTS 10/24/04 bilateral total knee revisions DELIVERY ONLY , low cervical CHOLECYSTECTOMY COLONOSCOPY FLX DX W/COLLJ SPEC WHEN PFRMD 11/17/2017 Colonoscopy DEBRIDEMENT SUBCUTANEOUS TISSUE 20 SQ CM/< 02/17/07 LEFT LEG DEBRIDEMENT SUBCUTANEOUS TISSUE 20 SQ CM/< [id number] LEFT LEG DEBRIDEMENT SUBCUTANEOUS TISSUE 20 SQ CM/< [id number] LEFT LEG DEBRIDEMENT SUBCUTANEOUS TISSUE 20 SQ CM/< [id number] LEFT LEG DEBRIDEMENT SUBCUTANEOUS TISSUE 20 SQ CM/< [id number] LEFT LEG DEBRIDEMENT SUBCUTANEOUS TISSUE 20 SQ [...] mg 24 hr tablet Take by mouth. Miqmkfqhgtk-Eweedvumg-Prw C-Mn (GLUCOSAMINE CHONDROITIN MAXSTR) 500-400 mg cap Take 1 capsule by mouth three times daily. COMPOUNDED PRESCRIPTION Stair lift DAILY-LUISITO tablet TAKE 1 TABLET BY MOUTH ONCE DAILY. bgtapqm-eehcaabxs-cpfzupd D3 (CALCIUM 500+D) 500 mg(1,250mg) -200 unit [...] which included preparing to see the patient, hsfp-jy-hfcf patient care, and completing clinical documentation Rebekah Bobo APRN.CNP I have communicated my name and active licensure. The patient's identity and physical location wereverified at the time of this visit. Either the patient or their legal passenger relations representative has been informed of the risks and benefits of -- and alternatives to -- treatment through a remote evaluation andconsents to proceed with the evaluation remotely. documented in this encounterLima City Hospital11-27-2023 NoteHNO ID: [id number] Author: Rebekah Bobo APRN.CNP Service: ? Author [...] visit. Either the patient or their legal passenger relations representative has been informed of the risks [...] discuss possible SPR. Ht 157.5 cm (5' 2") Wt 104.3 kg (230 lb) BMI 42.07 [...] gortex put in on 05/11 then taken out3/05 ARTHRP KNE CONDYLEANDPLATU MEDIALANDLAT COMPARTMENTS 1990 bilateral total knee s(Racine) ARTHRP KNE CONDYLEANDPLATU MEDIALANDLAT COMPARTMENTS 10/24/04 bilateral total knee revisions DELIVERY ONLY , low cervical CHOLECYSTECTOMY COLONOSCOPY FLX DX W/COLLJ SPEC WHEN PFRMD 11/17/2017 Colonoscopy DEBRIDEMENT SUBCUTANEOUS TISSUE 20 SQ CM/< 02/17/07 LEFT LEG DEBRIDEMENT SUBCUTANEOUS TISSUE 20 SQ CM/< [id number] LEFT LEG DEBRIDEMENT SUBCUTANEOUS TISSUE 20 SQ CM/< [id number] LEFT LEG DEBRIDEMENT SUBCUTANEOUS TISSUE 20 SQ CM/< [id number] LEFT LEG DEBRIDEMENT SUBCUTANEOUS TISSUE 20 SQ CM/< [id number] LEFT LEG DEBRIDEMENT SUBCUTANEOUS TISSUE 20 SQ [...] mg 24 hr tablet Take by mouth. Mhwddomldnu-Yicadblzz-Fub C-Mn (GLUCOSAMINE CHONDROITIN MAXSTR) 500-400 mg cap Take 1 capsule by mouth three times daily. COMPOUNDED PRESCRIPTION Stair lift DAILY-LUISITO tablet TAKE 1 TABLET BY MOUTH ONCE DAILY. dqbcyjx-weuqjajri-qsyjhtg D3 (CALCIUM 500+D) 500 mg(1,250mg) -200 unit [...] tolerated Activity as tolerated documented in this encounterLima City Hospital11-13-2023 Nurse Note* Rom Cano LPN - [...] tablePatient s procedure was performed in an [facility] Procedure room. Pause completed at each [...] Robbins LPN - 02/16/2023 11:04 AM EST Electronics Manufacturer's Name: N/A Are you on a blood [...] to receive one? n documented in this encounterLima City Hospital11-13-2023 Instructions* Patient Instructions* Rom Cano LPN - 02/16/2023 11:49 AM EST PROCEDURE DISCHARGE INSTRUCTIONS 02/16/2023 Mari Lopez 1940 Physician: Roque Delgado MD [...] emergency care and why. documented in this encounterLima City Hospital11-13-2023 NoteHNO ID: [id number] Author: Octavio Robbins LPN Service: ? Author [...] 10:45 AM EST [facility] Date: 02/16/2023 Patient name: Mari Lopez Physician [...] or double vision) Respiratory: Negative (No Cough, Ocfeimtxs-lg-mjymgn, Dyspnea on exertion, wheezing) Cardiovascular: Negative (No [...] and thrombophlebitis of femoral vein (deep) (superficial) ([facility]) Unspecified sleep apnea PAST SURGICAL HISTORY Procedure Laterality Date ANESTHESIA HERNIA REPAIR LOWER ABDOMEN NOS 04/2004,05/11 gortex put in on 05/11 then taken out06/08 ARTHRP KNE CONDYLE&PLATU MEDIAL&LAT COMPARTMENTS 1990 bilateral total knee s(Racine) ARTHRP KNE CONDYLE&PLATU MEDIAL&LAT COMPARTMENTS 10/24/04 bilateral total knee revisions DELIVERY ONLY , low cervical CHOLECYSTECTOMY COLONOSCOPY FLX DX W/COLLJ SPEC WHEN PFRMD 11/17/2017 Colonoscopy DEBRIDEMENT SUBCUTANEOUS TISSUE 20 SQ CM/< 02/17/07 LEFT LEG DEBRIDEMENT SUBCUTANEOUS TISSUE 20 SQ CM/< [id number] LEFT LEG DEBRIDEMENT SUBCUTANEOUS TISSUE 20 SQ CM/< [id number] LEFT LEG DEBRIDEMENT SUBCUTANEOUS TISSUE 20 SQ CM/< [id number] LEFT LEG DEBRIDEMENT SUBCUTANEOUS TISSUE 20 SQ CM/< [id number] LEFT LEG DEBRIDEMENT SUBCUTANEOUS TISSUE 20 SQ [...] mg 24 hr tablet Take by mouth. Evaszpmhswm-Ibynmmpqv-Ljz C-Mn (GLUCOSAMINE CHONDROITIN MAXSTR) 500-400 mg cap Take 1 capsule by mouth three times daily. COMPOUNDED PRESCRIPTION Stair lift DAILY-LUISITO tablet TAKE 1 TABLET BY MOUTH ONCE DAILY. larktuf-lihmwfyac-wmfjsic D3 (CALCIUM 500+D) 500 mg(1,250mg) -200 unit [...] appropriate Assessment and Plan: As noted above Goree protocol documentation / Pre-Procedure Checklist: Consent: Obtained [...] HODGSONA Pain Management [facility] documented in this encounterLima City Hospital11-13-2023 NoteHNO ID: [id number] Author: Roque Delgado MD Service: ? Author Type: Physician Type: Progress Notes Filed: 02/16/2023 12:55 PM Note Text: [facility] Date: 02/16/2023 Patient name: Mari Lopez Physician [...] or double vision) Respiratory: Negative (No Cough, Fkfquhytf-ld-lhqjgi, Dyspnea on exertion, wheezing) Cardiovascular: Negative (No [...] and thrombophlebitis of femoral vein (deep) (superficial) ([facility]) Unspecified sleep apnea PAST SURGICAL HISTORY Procedure Laterality Date ANESTHESIA HERNIA REPAIR LOWER ABDOMEN NOS 04/2004,05/11 gortex put in on 05/11 then taken out06/08 ARTHRP KNE CONDYLEANDPLATU MEDIALANDLAT COMPARTMENTS 1990 bilateral total knee s(Racine) ARTHRP KNE CONDYLEANDPLATU MEDIALANDLAT COMPARTMENTS 10/24/04 bilateral total knee revisions DELIVERY ONLY , low cervical CHOLECYSTECTOMY COLONOSCOPY FLX DX W/COLLJ SPEC WHEN PFRMD 11/17/2017 Colonoscopy DEBRIDEMENT SUBCUTANEOUS TISSUE 20 SQ CM/< 02/17/07 LEFT LEG DEBRIDEMENT SUBCUTANEOUS TISSUE 20 SQ CM/< [id number] LEFT LEG DEBRIDEMENT SUBCUTANEOUS TISSUE 20 SQ CM/< [id number] LEFT LEG DEBRIDEMENT SUBCUTANEOUS TISSUE 20 SQ CM/< [id number] LEFT LEG DEBRIDEMENT SUBCUTANEOUS TISSUE 20 SQ CM/< [id number] LEFT LEG DEBRIDEMENT SUBCUTANEOUS TISSUE 20 SQ [...] History of Present illness Narrative* Allison Garcia, (R) - 01/15/2023 9:20 AM EDT Radiology Service [...] IV DATA: Not applicable SIGNED BY: RT Eboni(Musa) January 15, 2023 11:24 AM documented in this encounterLima City Hospital10-12-2023 Miscellaneous Notes* Telephone Encounter - Jennifer [...] No 9. Does this procedure require a milk pickup driver? No If yes, has patient been notified that a milk pickup driver is needed and must be present [...] vaccine.) Jennifer De Leon documented in this encounterLima City Hospital10-12-2023 NoteHNO ID: [id number] Author: Kerrie Guthrie LPN Service: ? Author [...] not included. [facility] Name: Mari Lopez : 1940 Purpose: [...] bony destructive process. Lumbar: There are five vzh-dal-zekthaq lumbar vertebrae. No acute fracture or subluxations [...] report bilateral flank pain. She states her director of religious life, PCP and environmental project manager advised her pain is coming from her [...] current dose Flexeril 10mg TID PRN Functional Hinduism: No changes-continue current regimen Additional Studies: X-ray [...] MD Pain Management [facility] documented in this encounterLima City Hospital10-11-2023 NoteHNO ID: [id number] Author: Roque Delgado MD Service: ? Author Type: Physician Type: Progress Notes Filed: 01/15/2023 8:58 AM Note Text: [facility] Name: Mari Lopez : 1940 Purpose: [...] Miscellaneous Notes* Telephone Encounter - Miryam Orozco APRN.[facility] - 12/24/2022 9:34 AM EDT Face sheet, consult, and last OV notes faxed to Dr. Gilmore's office in [place]. Miryam Orozco APRN.CNP * Telephone Encounter - [...] like to establish care with a new environmental project manager I would recommend [facility], Dr. Gilmore. Please let me know what she prefers. If she would like we can recheck kidney function in 2 to 4 weeks after stopping Lasix. Thank you. Miryam Orozco APRN.CJ documented in this encounterLima City Hospital09-18-2023 Instructions* Patient Instructions* Miryam Orozco APRN.CNP [...] sooner pending test results. documented in this encounterLima City Hospital09-18-2023 History of Present illness Narrative* Miryam Orozco APRN.MRI MANAGER - 12/22/2022 9:00 AM EDT This is [...] Lasix daily, following with Nephrology, Dr. Acosta [facility]. Had decreased GFR in , Following up [...] CONDYLE&PLATU MEDIAL&LAT COMPARTMENTS 1990 bilateral total knee s(Racine) ARTHRP KNE CONDYLE&PLATU MEDIAL&LAT COMPARTMENTS 10/24/04 bilateral total knee revisions DELIVERY ONLY , low cervical CHOLECYSTECTOMY COLONOSCOPY FLX DX W/COLLJ SPEC WHEN PFRMD 11/17/2017 Colonoscopy DEBRIDEMENT SUBCUTANEOUS TISSUE 20 SQ CM/< 02/17/07 LEFT LEG DEBRIDEMENT SUBCUTANEOUS TISSUE 20 SQ CM/< [id number] LEFT LEG DEBRIDEMENT SUBCUTANEOUS TISSUE 20 SQ CM/< [id number] LEFT LEG DEBRIDEMENT SUBCUTANEOUS TISSUE 20 SQ CM/< [id number] LEFT LEG DEBRIDEMENT SUBCUTANEOUS TISSUE 20 SQ CM/< [id number] LEFT LEG DEBRIDEMENT SUBCUTANEOUS TISSUE 20 SQ [...] Take 40 mg by mouth once daily.) Qhipqcbgmqs-Ggabyxvjk-Aaq C-Mn (GLUCOSAMINE CHONDROITIN MAXSTR) 500-400 mg cap Take 1 capsule by mouth three times daily. COMPOUNDED PRESCRIPTION Stair lift DAILY-LUISITO tablet TAKE 1 TABLET BY MOUTH ONCE DAILY. ztftzlt-umpayvzli-mbbbess D3 (CALCIUM 500+D) 500 mg(1,250mg) -200 unit [...] APRN.CJ This note was partially generated using e[employer]ureau voice recognition system. Note was reviewed for accuracy. There may be minor misspellings or grammar miscues with e[employer]ureau voice recognition. documented in this encounterLima City Hospital08-31-2023 Miscellaneous Notes* Telephone Encounter - Jud aMttson MA - 12/04/2022 4:01 PM EDT Patient [...] APPOINTMENT 01/15/23 PLEASE ADVISE documented in this encounterLima City Hospital07-13-2023 Miscellaneous Notes* Addendum Note - Celena Maria LPN - 10/16/2022 10:30 AM EDTAddended by: CELENA MARIA on: 10/16/2022 10:30 AM Modules accepted: Orders documented in this encounterLima City Hospital07-13-2023 History of Present illness Narrative* Kerrie [...] not included. [facility] Name: Mari Lopez : 1940 Purpose: [...] bony destructive process. Lumbar: There are five fgy-wlq-minauls lumbar vertebrae. No acute fracture or subluxations [...] report bilateral flank pain. She states her director of religious life, PCP and environmental project manager advised her pain is coming from her [...] life: Plan: The Sprint[employer]TM) SPR electrode(s) or "lead(s)" was removed without incident The patient will be followed by passenger relations representative from the company Additional tests, treatments, [...] current dose Flexeril 10mg TID PRN Functional Hinduism: No changes-continue current regimen Additional Studies: None [...] MD Pain Management [facility] documented in this encounterLima City Hospital07-05-2023 Miscellaneous Notes* Telephone Encounter - Miryam Orozco APRN.CNP - 10/08/2022 2:47 PM EDT The following approved medication requests have been transmitted electronically. Requested Prescriptions Signed Prescriptions Disp Refills zolpidem (AMBIEN) 10 mg 30 tablet 2 Sig: Take 1 tablet by mouth at bedtime as needed for up to 90 days. Authorizing Provider: MIRYAM OORZCO APRN.CNP PDMP website checked and validated. All prescriptions have been APPROPRIATELY filled. No suspiciousactivity was identified. 10/08/2022 by Miryam Orozco APRN.MRI MANAGER * Telephone Encounter - Quynh Carlie - [...] notify patient. Quynh Sexton documented in this encounterLima City Hospital06-29-2023 History of Present illness Narrative* Celia [...] AM EDT [facility] Date: 10/02/2022 Name: Mari Lopez : 1940 Purpose: SPR lead(s) Removal Interval History: Mari Lopez is an established patient at [facility], who presents today for removal of SPR [...] implemented: Plan: The Sprint[employer]TM) SPR electrode(s) or "lead(s)" was removed without incident The patient will be followed by passenger relations representative from the company Additional tests, treatments, or referrals: none Follow-up: For right lead removal in 2 weeks (10/16) Roque Delgado MD, DENNIS Pain Management [facility] * Roque Delgado MD - 10/01/2022 11:35 AM EDT Opened in error documented in this encounterLima City Hospital05-10-2023 Nurse Note* Rom Cano LPN - [...] Time stop:1505 SPRINT endura PNS System Lot- [id number] 2023-11-05 SPRINT endura PNS System EXTERNAL PULSE GENERATOR Lot- [id number] 2023-11-05 SPRINT endura PNS System MICROLEAD 2.0 WITH [employer]PASS INTRODUCER Lot- [id number] 2024-06-10 SPRINT endura PNS System CABLES SINGLE-LEAD PROCEDURE Lot- [id number] 2024-05-08 Nurse : Amada Velasco LPN Date: [...] table. Patient s procedure was performed in [facility] procedure room. Pressure was applied to patient s injection site(s) and bleeding was minimal. Patient had no complaint of shortness of breath, dizziness, headache, numbness, tingling, weakness or complications from procedure. Patient was assisted fromthe procedure table onto the stretcher and wheeled into a post op bay. Patient was advised a [employer] 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 would be in for reprogramming. Patient was advised a clinician will be toobtain another set of vitals. Present in the room is: ROQUE DELGADO MD- Physician Amada Velasco - RUDDY Ferreira/ Thierno Lorenzo - SPRINT 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 AMADA SAUL - X-Ray Tech Comments: None Tolerated procedure well: Yes * Jose Roberto Jimenes - 08/13/2022 1:51 PM EDT Electronics Manufacturer's Name: Cayla Are you on a blood [...] to receive one? no documented in this encounterLima City Hospital05-10-2023 History of Present illness Narrative* Jose [...] CONDYLE&PLATU MEDIAL&LAT COMPARTMENTS 1990 bilateral total knee s(Racine) ARTHRP KNE CONDYLE&PLATU MEDIAL&LAT COMPARTMENTS 10/24/04 bilateral total knee revisions DELIVERY ONLY , low cervical CHOLECYSTECTOMY COLONOSCOPY FLX DX W/COLLJ SPEC WHEN PFRMD 11/17/2017 Colonoscopy DEBRIDEMENT SUBCUTANEOUS TISSUE 20 SQ CM/< 02/17/07 LEFT LEG DEBRIDEMENT SUBCUTANEOUS TISSUE 20 SQ CM/< [id number] LEFT LEG DEBRIDEMENT SUBCUTANEOUS TISSUE 20 SQ CM/< [id number] LEFT LEG DEBRIDEMENT SUBCUTANEOUS TISSUE 20 SQ CM/< [id number] LEFT LEG DEBRIDEMENT SUBCUTANEOUS TISSUE 20 SQ CM/< [id number] LEFT LEG DEBRIDEMENT SUBCUTANEOUS TISSUE 20 SQ [...] daily. Take on empty stomach. For thyroid. Mztukavmidr-Fdijkxfjc-Tin C-Mn (GLUCOSAMINE CHONDROITIN MAXSTR) 500-400 mg cap Take 1 capsule by mouth three times daily. lisinopril-hydroCHLOROthiazide (PRINZIDE,ZESTORETIC) 10-12.5 mg per tablet Take 1 tablet by mouth once daily. COMPOUNDED PRESCRIPTION Stair lift DAILY-LUISITO tablet TAKE 1 TABLET BY MOUTH ONCE DAILY. rwfwvhi-ppfplbwyy-ujascqo D3 (CALCIUM 500+D) 500 mg(1,250mg) -200 unit [...] 7:58 AM EDT [facility] Date: 08/13/2022 Patient name: Mari Lopze Physician performing procedure: Roque Delgado M.D., M.B.A. [...] or double vision) Respiratory: Negative (No Cough, Xakgrxfnp-kn-rftzqw, Dyspnea on exertion, wheezing) Cardiovascular: Negative (No [...] CONDYLE&PLATU MEDIAL&LAT COMPARTMENTS 1990 bilateral total knee s(Racine) ARTHRP KNE CONDYLE&PLATU MEDIAL&LAT COMPARTMENTS 10/24/04 bilateral total knee revisions DELIVERY ONLY , low cervical CHOLECYSTECTOMY COLONOSCOPY FLX DX W/COLLJ SPEC WHEN PFRMD 11/17/2017 Colonoscopy DEBRIDEMENT SUBCUTANEOUS TISSUE 20 SQ CM/< 02/17/07 LEFT LEG DEBRIDEMENT SUBCUTANEOUS TISSUE 20 SQ CM/< [id number] LEFT LEG DEBRIDEMENT SUBCUTANEOUS TISSUE 20 SQ CM/< [id number] LEFT LEG DEBRIDEMENT SUBCUTANEOUS TISSUE 20 SQ CM/< [id number] LEFT LEG DEBRIDEMENT SUBCUTANEOUS TISSUE 20 SQ CM/< [id number] LEFT LEG DEBRIDEMENT SUBCUTANEOUS TISSUE 20 SQ [...] daily. Take on empty stomach. For thyroid. Zaoxtfbhxqb-Pdmpoemox-Tnp C-Mn (GLUCOSAMINE CHONDROITIN MAXSTR) 500-400 mg cap Take 1 capsule by mouth three times daily. lisinopril-hydroCHLOROthiazide (PRINZIDE,ZESTORETIC) 10-12.5 mg per tablet Take 1 tablet by mouth once daily. COMPOUNDED PRESCRIPTION Stair lift DAILY-LUISITO tablet TAKE 1 TABLET BY MOUTH ONCE DAILY. xoiizva-remvghyos-khdpidu D3 (CALCIUM 500+D) 500 mg(1,250mg) -200 unit [...] appropriate Assessment and Plan: As noted above Goree protocol documentation / Pre-Procedure Checklist: Consent: Obtained [...] Test stimulation was conducted per the SPR passenger relations representative successfully. The finder needle was then [...] programming and be discharged home with their milk pickup driver. The patient was instructed to monitor [...] MBA Pain Management [facility] documented in this encounterLima [facility] Hospital05-01-2023 Miscellaneous Notes* Telephone Encounter - Roque Delgado MD - 08/04/2022 1:04 PM EDT Please let Ms. Lopez know that the right foot x-ray showed no fracture. Roque Delgado III, MD, DENNIS documented in this encounterLima City Hospital04-27-2023 History and physical note Author Dr. Jackson [facility] July 31, 2022 2:01pm Note Date/Time July 31, 2022 9:4 1am [facility] Medical Records Department [address] [place] [address] History & Physical Exam 07/31/22 0941 MR#: [id number] Acct: [id number] Name: MARI LOPEZ Rep #:[id number] : 1940 82 From: Maria Teresa Roy STOPER-C PCP: Dr. Lizy Capone MD Status:MD E SDC Location: [facility] History and Physical Date of Admission: 04/28/23 This is an 82-year-old lady who presents [...] and diuretics.? She was seen by the environmental project manager and had Lasix dosage adjustments to 80 [...] wheezing; Negative for SOB at rest, SOB orthopnea\\SOB lying down or paroxysmal nocturnal dyspnea GI [...] results, further recommendations will be made. 07/31/22 0994 <Electronically signed by Maria Teresa BARAHONA> Cosigner Signature (if applicable): 07/31/22 1401 <Electronically signed by Norberto Jackson MD> CC: BROOKLYN Olivo; Dr. Norberto Jackson MD; Dr. Lizy Capone MD~ Signed [facility] Work Phone: [phone]) 773-359604-26-2023 Nurse Note* Malena Nagel LPN - 07/30/2022 [...] start:1403 Time stop:1415 SPRINT endura PNS System Lot-[id number] SPRINT endura PNS System EXTERNAL PULSE GENERATOR Lot-[id number] SPRINT endura PNS System MICROLEAD 2.0 [employer]PASS INTRODUCER Lot-[id number] SPRINT endura PNS System CABLES - SINGLE-LEAD PROCEDURE Lot-[id number] Nurse : Amada Velasco LPN Date: July 30, 2022 Time: 2:06 PM Physician: Roque Delgado MD Date: July 30, 2022 Time: 2:06 PM Amada Velasco LPN Pause completed at each level by provider to verify correct level and laterality placement Patient was brought into the procedure room in a wheelchair . Patient s procedure was performed in [facility] procedure room. Pressure was applied to patient s injection site(s) and bleeding was minimal. Patient had no complaint of shortness of breath, dizziness, headache, numbness, tingling, weakness or complications from procedure. Patient was assisted from the procedure table into wheelchair and wheeled back to exam room. Patient was advised a [employer] 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 would be in for reprogramming. Patient was advised a clinician will be to obtain another set of vitals. Present in the room is: ROQUE DELGADO MD - Physician Amada Velasco - RUDDY Ferreira - SPRINT 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 Cordell Flynn - X-Ray Tech Comments: None Tolerated procedure well: Yes * Jose Roberto Jimenes - 07/30/2022 12:56 PM EDT Electronics Manufacturer's Name: Stephanie Are you on a blood [...] to receive one? no documented in this encounterLima City Hospital04-26-2023 History of Present illness Narrative* Jose [...] CONDYLE&PLATU MEDIAL&LAT COMPARTMENTS 1990 bilateral total knee s(Racine) ARTHRP KNE CONDYLE&PLATU MEDIAL&LAT COMPARTMENTS 10/24/04 bilateral total knee revisions DELIVERY ONLY , low cervical CHOLECYSTECTOMY COLONOSCOPY FLX DX W/COLLJ SPEC WHEN PFRMD 11/17/2017 Colonoscopy DEBRIDEMENT SUBCUTANEOUS TISSUE 20 SQ CM/< 02/17/07 LEFT LEG DEBRIDEMENT SUBCUTANEOUS TISSUE 20 SQ CM/< [id number] LEFT LEG DEBRIDEMENT SUBCUTANEOUS TISSUE 20 SQ CM/< [id number] LEFT LEG DEBRIDEMENT SUBCUTANEOUS TISSUE 20 SQ CM/< [id number] LEFT LEG DEBRIDEMENT SUBCUTANEOUS TISSUE 20 SQ CM/< [id number] LEFT LEG DEBRIDEMENT SUBCUTANEOUS TISSUE 20 SQ [...] empty stomach. For thyroid.^Disp: 90 tablet^Rfl: 3 Gksyrexpwcu-Gxzfnyatp-Dfe C-Mn (GLUCOSAMINE CHONDROITIN MAXSTR) 500-400 mg cap^Take 1 capsule by mouth three times daily.^Disp: 90 capsule^Rfl: 11 lisinopril-hydroCHLOROthiazide (PRINZIDE,ZESTORETIC) 10-12.5 mg per tablet^Take 1 tablet by mouth once daily.^Disp: 30 tablet^Rfl: 11 (Patient not taking: Reported on 06/30/2022) COMPOUNDED PRESCRIPTION^Stair lift^Disp: 1 Device^Rfl: 0 DAILY-LUISITO tablet^TAKE 1 TABLET BY MOUTH ONCE DAILY.^Disp: 30 tablet^Rfl: 11 mgrcqel-hsntaofnm-gjfcvpd D3 (CALCIUM 500+D) 500 mg(1,250mg) -200 unit [...] 7:59 AM EDT [facility] Date: 07/30/2022 Patient name: Mari Lopez Physician [...] or double vision) Respiratory: Negative (No Cough, Voxwvuzps-lw-jpjwyx, Dyspnea on exertion, wheezing) Cardiovascular: Negative (No [...] CONDYLE&PLATU MEDIAL&LAT COMPARTMENTS 1990 bilateral total knee s(Racine) ARTHRP KNE CONDYLE&PLATU MEDIAL&LAT COMPARTMENTS 10/24/04 bilateral total knee revisions DELIVERY ONLY , low cervical CHOLECYSTECTOMY COLONOSCOPY FLX DX W/COLLJ SPEC WHEN PFRMD 11/17/2017 Colonoscopy DEBRIDEMENT SUBCUTANEOUS TISSUE 20 SQ CM/< 02/17/07 LEFT LEG DEBRIDEMENT SUBCUTANEOUS TISSUE 20 SQ CM/< [id number] LEFT LEG DEBRIDEMENT SUBCUTANEOUS TISSUE 20 SQ CM/< [id number] LEFT LEG DEBRIDEMENT SUBCUTANEOUS TISSUE 20 SQ CM/< [id number] LEFT LEG DEBRIDEMENT SUBCUTANEOUS TISSUE 20 SQ CM/< [id number] LEFT LEG DEBRIDEMENT SUBCUTANEOUS TISSUE 20 SQ [...] daily. Take on empty stomach. For thyroid. Lyegclbssbp-Dnrzuxsvp-Kem C-Mn (GLUCOSAMINE CHONDROITIN MAXSTR) 500-400 mg cap Take 1 capsule by mouth three times daily. lisinopril-hydroCHLOROthiazide (PRINZIDE,ZESTORETIC) 10-12.5 mg per tablet Take 1 tablet by mouth once daily. (Patient not taking: Reported on 06/30/2022) COMPOUNDED PRESCRIPTION Stair lift DAILY-LUISITO tablet TAKE 1 TABLET BY MOUTH ONCE DAILY. dybbqzh-rufdfxsab-tjcsimn D3 (CALCIUM 500+D) 500 mg(1,250mg) -200 unit [...] appropriate Assessment and Plan: As noted above Goree protocol documentation / Pre-Procedure Checklist: Consent: Obtained [...] Test stimulation was conducted per the SPR passenger relations representative successfully. The finder needle was then [...] programming and be discharged home with their milk pickup driver. The patient was instructed to monitor [...] MBA Pain Management [facility] documented in this encounterLima [facility] Hospital04-10-2023 Miscellaneous Notes* Telephone Encounter - Mulugeta [...] JENNINGS APRN.CNP * Telephone Encounter - Patricia Mcqueen Pss [...] patient. Patricia Mcqueen Pss documented in this encounterLima City Hospital04-03-2023 History and physical note Author Dr. Jackson [facility] July 07, 2022 6:17pm Note Date/Time July 07, 2022 1:51 pm [facility] Medical Records Department [address] [place] [address] History & Physical Exam 07/07/22 1348 MR#: [id number] Acct: [id number] Name: MARI LOPEZ Rep #:[id number] : 1940 82 From: Jas Bethea NP STOPER-C PCP: Dr. Lizy Capone MD Status:MD E [facility] Location: [facility] History and Physical Date of Admission: [...] and diuretics.? She was seen by the environmental project manager and had Lasix dosageadjustments to 80 mg [...] Signs: See EMR Visit Reasons:?4 M FU Research Manager Required: No Accompanied by: None Is [...] wheezing; Negative for SOB at rest, SOB orthopnea\\SOB lying down or paroxysmal nocturnal dyspnea GI [...] postponed on account of back procedure [facility]. At this time, shewill proceed with heart catheterization and depending on results, further recommendations be made. 07/07/22 1351 <Electronically signed by Jas BARAHONA> Cosigner Signature (if applicable): 07/07/22 1817 <Electronically signed by Norberto Jackson MD> CC: BROOKLYN Bethea; Dr. Norberto Jackson MD; Dr. Lizy Capone MD~ Signed [facility] Work Phone: [phone]) 124-946003-29-2023 Nurse Note* Celia Crowell LPN - 07/02/2022 1:11 PM EDT Electronics Manufacturer's Name: Richard Are you on a blood [...] to receive one? N documented in this encounterLima City Hospital03-29-2023 History of Present illness Narrative* Roque Delgado MD - 07/02/2022 8:29 AM EDT Procedure cancelled, patient on antibiotic for UTI. Will reschedule. Roque Delgado III, MD, DENNIS documented in this encounterLima City Hospital03-28-2023 Miscellaneous Notes* Telephone Encounter - Esme [...] appropriately. Mulugeta Jennings APRN.CNP documented in this encounterLima City Hospital03-27-2023 Instructions* Patient Instructions* Ragini Gomes APRN.CNP - 06/30/2022 10:56 AM EDT Images from the original note were not included. INFORMATION ON URODYNAMICS (BLADDER FUNCTION TEST) Getting Ready for the Test You do not have to fast before the test. Begin to drink 24-32 ounces of fluid (water, cranberry juice, milk, herbal tea) 90 minutes prior tothe test so you arrive at the [facility] with the urge to empty your [...] your bladder when you arrive [facility] the [facility]. Speak with a nurse if you feel you must empty your bladder. If you are taking antibiotics for a urinary tract infection (UTI) or bladder infection, notify yourphysician's office immediately. We may reschedule your bladder test. Bring a list of all prescribed and tmbq-nay-ycophze medications you are taking. If you should need assistance due to a language barrier or medical needs/condition, please notify the window shade ring sewer when making your appointment and one will be provided for you ([phone]). If you are taking overactive bladder medications [...] bladder symptoms. These include: Alcoholic beverages Cantaloupe Adell and spicy foods Apples & apple juice [place] fruit Chocolate Tea & Coffee (including decaffeinated) [...] the implant is placed. Useful Internet resources Https://www.OneTag.org/ https://www.niddk.nih.gov/health-information https://www.National Recovery Servicessforpfd.org/ Bladder Training Program for Overactive Bladder & [...] then relax for 10 seconds. Repeat these rfipylfqj23 times and do this at least 4 times daily. Try not to contract the abdominal muscles while matias the pelvic floor muscles. Do not continue to start and stop the urinary stream; use this technique only initially to identify the pelvic floor muscles. "Quick Flicks": When you get an urge to urinate, [...] colors/dyes Tomatoes Beer Chocolate Spicy foods Wine [place] syrup [place] juices and fruit Caffeine: Sugar Carbonated fluids [...] to take these medications. documented in this encounterLima City Hospital03-27-2023 History of Present illness Narrative* aRgini Gomes APRN.CNP - 06/30/2022 9:30 AM EDT Female Pelvic Medicine & Reconstructive Surgery Consult CHIEF COMPLAINT: Mari Lopez is a 82 year old female who presents for consultation requested by Miryam Orozco APRN.CNP for an opinion regarding Female stress incontinence. HISTORY OF PRESENT ILLNESS: Patient presents today with box office manager who lives near her. 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) Quite a bit somewhat [...] CONDYLE&PLATU MEDIAL&LAT COMPARTMENTS 1990 bilateral total knee s(Racine) ARTHRP KNE CONDYLE&PLATU MEDIAL&LAT COMPARTMENTS 10/24/04 bilateral total knee revisions DELIVERY ONLY , low cervical CHOLECYSTECTOMY COLONOSCOPY FLX DX W/COLLJ SPEC WHEN PFRMD 11/17/2017 Colonoscopy DEBRIDEMENT SUBCUTANEOUS TISSUE 20 SQ CM/< 02/17/07 LEFT LEG DEBRIDEMENT SUBCUTANEOUS TISSUE 20 SQ CM/< [id number] LEFT LEG DEBRIDEMENT SUBCUTANEOUS TISSUE 20 SQ CM/< [id number] LEFT LEG DEBRIDEMENT SUBCUTANEOUS TISSUE 20 SQ CM/< [id number] LEFT LEG DEBRIDEMENT SUBCUTANEOUS TISSUE 20 SQ CM/< [id number] LEFT LEG DEBRIDEMENT SUBCUTANEOUS TISSUE 20 SQ [...] daily. Take on empty stomach. For thyroid. Pryyfqgwump-Rhneanshd-Olv C-Mn (GLUCOSAMINE CHONDROITIN MAXSTR) 500-400 mg cap Take 1 capsule by mouth three times daily. COMPOUNDED PRESCRIPTION Stair lift DAILY-LUISITO tablet TAKE 1 TABLET BY MOUTH ONCE DAILY. qhehhup-svwkpcpwe-svrllsw D3 (CALCIUM 500+D) 500 mg(1,250mg) -200 unit [...] and ROS obtained by others. Ragini Gomes APRN.MRI MANAGER Paint Coating Machine Operator offered: Patient declines. OBJECTIVE: BP 135/80 Pulse 66 Resp 16 Ht 5' 2.008" (1.58m) Wt 299 lb (135.6kg) SpO2 94% [...] which included preparing to see the patient, njru-ro-mwbj patient care, completing clinical documentation, obtaining and/or reviewing separately obtained history, performing a medically appropriate examination, counseling and educating the pat ient/family/caregiver, and ordering medications, tests, or procedures. My final recommendations will be communicated back to the requesting physician by way of shared Medical record or letter via US mail. Ragini Gomes APRN.CNP documented in this encounterLima City Hospital03-24-2023 Miscellaneous Notes* Telephone Encounter - Josselin [...] Miryam. Mulugeta Jennings APRN.CNP documented in this encounterLima City Hospital03-23-2023 Instructions* Patient Instructions* Miryam Orozco APRN.CNP [...] Dr. Hernandez, she is located in [facility], 2nd floor. Keep scheduled appointments with Dr. Acosta and Dr. Delgado Follow up in 3 months or sooner as needed. documented in this encounterLima City Hospital03-23-2023 History of Present illness Narrative* Miryam [...] on the right side July 02 in [place]. Knee Pain: Would like a prescription for [...] CONDYLE&PLATU MEDIAL&LAT COMPARTMENTS 1990 bilateral total knee s(Racine) ARTHRP KNE CONDYLE&PLATU MEDIAL&LAT COMPARTMENTS 10/24/04 bilateral total knee revisions DELIVERY ONLY , low cervical CHOLECYSTECTOMY COLONOSCOPY FLX DX W/COLLJ SPEC WHEN PFRMD 11/17/2017 Colonoscopy DEBRIDEMENT SUBCUTANEOUS TISSUE 20 SQ CM/< 02/17/07 LEFT LEG DEBRIDEMENT SUBCUTANEOUS TISSUE 20 SQ CM/< [id number] LEFT LEG DEBRIDEMENT SUBCUTANEOUS TISSUE 20 SQ CM/< [id number] LEFT LEG DEBRIDEMENT SUBCUTANEOUS TISSUE 20 SQ CM/< [id number] LEFT LEG DEBRIDEMENT SUBCUTANEOUS TISSUE 20 SQ CM/< [id number] LEFT LEG DEBRIDEMENT SUBCUTANEOUS TISSUE 20 SQ [...] daily. Take on empty stomach. For thyroid. Brxklbzfqml-Oirnrrnqa-Tqw C-Mn (GLUCOSAMINE CHONDROITIN MAXSTR) 500-400 mg cap Take 1 capsule by mouth three times daily. lisinopril-hydroCHLOROthiazide (PRINZIDE,ZESTORETIC) 10-12.5 mg per tablet Take 1 tablet by mouth once daily. COMPOUNDED PRESCRIPTION Stair lift DAILY-LUISITO tablet TAKE 1 TABLET BY MOUTH ONCE DAILY. xcerssr-gcenpefbh-nbunilt D3 (CALCIUM 500+D) 500 mg(1,250mg) -200 unit [...] discussed and patient voices understanding. Miryam Orozco APRN.MRI MANAGER This note was partially generated using eBureau voice recognition system. Note was reviewed for accuracy. There may be minor misspellings or grammar miscues with eBureau voice recognition. documented in this encounterLima City Hospital03-01-2023 Miscellaneous Notes* Addendum Note - Roque [...] Delgado MD at [address], [place] [address]. Mari Lopez has been scheduled for Lead pull - right side on 09/04/22 at 9:45am, with Roque Delgado MD at [address], [place] [address]. Mari Lopez has been scheduled for SPR device placement - left side on 07/30/22 at 1pm, with Roque Delgado MD at [address], [place] [address]. Mari Lopez has been scheduled for Lead pull - left side on 10/02/22 at 9:45am, with Roque Delgado MD at [address], [place] [address]. Please call in Xanax and Antibiotics to e- [id number] [place], [place] [id number] - [address] [facility] - [phone] [facility] [address] [phone] [address] [address] Patient has allergies to Allergies: Aspirin Intolerance Bactrim [Sulfametho* Hives Comment:Blisters: head to toe Ibuprofen Rash Kefzol [Cefazolin S* Hives Peanut Butter [Othe* Comment:throat swelling, convulsions Sulfa (Sulfonamide * Hives, Unknown Comment:Blisters: head to toe Mailed patient pre procedure instructions and appointment reminders to patient. Samantha Marx Interior Design Principal to Dr. Roque Delgado, Spinal Cord Stimulator, Peripheral Nerve Stimulator, [place] [facility] [address] [place] [address] P: [phone] ext. [phone] F: [phone] documented in this encounterLima City Hospital02-24-2023 Miscellaneous Notes* Telephone Encounter - Samantha Quinones - 05/30/2022 10:45 AM EST I have attempted to contact this patient by phone, Spoke with someone that took a message stating to give me a call back at [phone] EXT [phone]. I have received the approval for the SPR device Cam was trying to get her scheduled. Samantha Marx documented in this encounterLima City Hospital02-20-2023 Miscellaneous Notes* Telephone Encounter - Erin Dillon RN - 05/26/2022 9:03 AM EST Patient referred to urogynecology for urinary incontinence. Currently, Dr. Shafer is only seeing surgical consults. Patient can be scheduled with urogynecology STOPER- Ragini Gomes. TCB, contact information provided. documented in this encounterLima City Hospital02-13-2023 Miscellaneous Notes* Telephone Encounter - Miryam [...] available. Olga Dillard RN documented in this encounterLima City Hospital02-10-2023 History of Present illness Narrative* Jae [...] CONDYLE&PLATU MEDIAL&LAT COMPARTMENTS 1990 bilateral total knee s(Racine) ARTHRP KNE CONDYLE&PLATU MEDIAL&LAT COMPARTMENTS 10/24/04 bilateral total knee revisions DELIVERY ONLY , low cervical CHOLECYSTECTOMY COLONOSCOPY FLX DX W/COLLJ SPEC WHEN PFRMD 11/17/2017 Colonoscopy DEBRIDEMENT SUBCUTANEOUS TISSUE 20 SQ CM/< 02/17/07 LEFT LEG DEBRIDEMENT SUBCUTANEOUS TISSUE 20 SQ CM/< [id number] LEFT LEG DEBRIDEMENT SUBCUTANEOUS TISSUE 20 SQ CM/< [id number] LEFT LEG DEBRIDEMENT SUBCUTANEOUS TISSUE 20 SQ CM/< [id number] LEFT LEG DEBRIDEMENT SUBCUTANEOUS TISSUE 20 SQ CM/< [id number] LEFT LEG DEBRIDEMENT SUBCUTANEOUS TISSUE 20 SQ [...] daily. Take on empty stomach. For thyroid. Hmrkvwdsnff-Nodgzypwa-Xbr C-Mn (GLUCOSAMINE CHONDROITIN MAXSTR) 500-400 mg cap Take 1 capsule by mouth three times daily. lisinopril-hydroCHLOROthiazide (PRINZIDE,ZESTORETIC) 10-12.5 mg per tablet Take 1 tablet by mouth once daily. COMPOUNDED PRESCRIPTION Stair lift DAILY-LUISITO tablet TAKE 1 TABLET BY MOUTH ONCE DAILY. uuafhkx-tqrdeicve-svbdeii D3 (CALCIUM 500+D) 500 mg(1,250mg) -200 unit [...] and reviewed by me Nursing Notes: Mari UmañaRUDDY 05/13/2022 3:25 PM Signed REVIEW OF [...] C (98 F), height 157.5 cm (5' 2"), oleija330.3 kg (285 lb), SpO2 91 %. HEENT: [...] patient there is a new urogynecologist at [facility] Dr. Jessica Munoz forward this note to her for her consideration/evaluation or for urologic incontinence issues. Diagnoses: (A04.72) C. difficile colitis (primary encounter diagnosis) (K62.5) Rectal bleeding (R19.5) Change in stool (W19.XXXA) Fall, initial encounter My findings have been communicated to [facility] via shared medical record. This note will be forwarded to Lizy Capone MD. Return to Clinic: The patient is instructed to follow-up with me as needed. Jae Cagle MD documented in this encounterLima City Hospital02-09-2023 Miscellaneous Notes* Telephone Encounter - Ralph [...] No 9. Does this procedure require a milk pickup driver? Yes If yes, has patient been notified that a milk pickup driver is needed and must be present [...] COVID vaccine.) Ralph Rodriguez documented in this encounterLima City Hospital02-07-2023 History of Present illness Narrative* Alcon [...] 13, 2022 4:33 PM documented in this encounterLima City Hospital02-07-2023 Nurse Note* Mari UmañaRUDDY - 05/13/2022 3:21 PM EST REVIEW OF [...] 2017 Mari Umaña LPN documented in this encounterLima City Hospital01-31-2023 Miscellaneous Notes* Telephone Encounter - Alfred [...] persist/worsen. Noemy Wilson APRN.CNP documented in this encounterLima City Hospital01-25-2023 Miscellaneous Notes* Telephone Encounter - Miryam [...] get testing supplies? Thank you. Miryam Orozco APRN.CJ documented in this encounterLima City Hospital01-24-2023 History of Present illness Narrative* Weston Herman [...] 29, 2022 8:40 AM documented in this encounterLima City Hospital01-23-2023 Miscellaneous Notes* Telephone Encounter - Alex [...] right hip was added. documented in this encounterLima City Hospital01-12-2023 Miscellaneous Notes* Telephone Encounter - Viridiana [...] Lackey Ma * Telephone Encounter - Allison Cole - 04/17/2022 9:15 AM EST Patient has [...] 90 days. Please review and advise. Allison Cole documented in this encounterLima City Hospital01-11-2023 Miscellaneous Notes* Telephone Encounter - Mulugeta [...] advise. Minna Blue LPN documented in this encounterLima City Hospital11-29-2022 History of Present illness Narrative* Natalia [...] Message Sent to Practice: YES Navigation Taryn Fowler March 04, 2022 5:23 PM documented in this encounterLima City Hospital11-15-2022 Miscellaneous Notes* Telephone Encounter - Alex [...] pm. Viridiana Russ LPN documented in this encounterLima City Hospital10-27-2022 Miscellaneous Notes* Telephone Encounter - Bre [...] COVID vaccine.) Bre Lamar documented in this encounterLima City Hospital10-27-2022 History of Present illness Narrative* Kaleigh [...] PM EDT [facility] [place] [facility] Today's Date: 01/30/2022 Last Visit: 11/28/2021 [...] bony destructive process. Lumbar: There are five cdt-zjh-kiorhux lumbar vertebrae. No acute fracture or subluxations [...] was identified. By Roque Delgado MD 01/30/2022 [facility] monthly Last Drug screen: Not Applicable Risk [...] was advised that they will need a milk pickup driver for after the procedure and that if no milk pickup driver is available and on site at [...] 09/19/2021 Completed and reviewed, moderate risk Functional Hinduism: Physical Therapy (Land-based) - Continue Additional Studies: [...] [facility] documented in this encounterLima City Hospital10-17-2022 Miscellaneous Notes* Telephone Encounter - Mulugeta [...] in. Shruthi Robbins Pss documented in this encounterLima City Hospital10-06-2022 Miscellaneous Notes* Telephone Encounter - Minna Blue LPN - 01/09/2022 11:03 AM EDT Patient notified of results, verbalizes understanding of instructions. Minna Blue LPN * Telephone Encounter - Miryam Orozco APRN.CNP - 01/08/2022 7:11 PM EDT Can you please call the patient and let her know that I reviewed her lab and ultrasound results. Ultrasound of abdomen was within normal limits. No ascites were noted. Her BNP however has gone up to 783. This can be significant for congestive heart failure. I would recommend that she have a follow-up with her director of religious life. Lab results will be faxed to their office. Mild improvement with kidney function however I still would recommend that she follow-up with nephrology. Please let me know if she has any questions. Thank you. Miryam Orozco APRN.CJ documented in this encounterLima City Hospital10-05-2022 Nurse Note* Carlito Richards RN - 01/08/2022 11:46 AM EDT Patient denies any numbness/tingling. documented in this encounterLima City Hospital10-05-2022 Surgical operation note* Operative Report - Roque Delgado MD - 01/08/2022 11:16 AM EDT OPERATIVE/PROCEDURE REPORT LOG ID: [id number] SURGERY/PROCEDURE DATE: 01/08/2022 INCISION/PROCEDURE START TIME: 11:20 AM INCISION CLOSE/PROCEDURE END TIME: 11:34 AM SURGEON(S)/PROCEDURALIST(S) AND SCREEN PRINTING SUPERVISOR(S): Surgeon(s) and Role: * Roque Delgado MD [...] 2022 TIME: 11:38 AM documented in this encounterLima City Hospital10-05-2022 History and physical note * Roque [...] capsule by mouth once daily. 01/07/2022 Yes Ikxtynlwntw-Ovyedjovb-Sat C-Mn (GLUCOSAMINE CHONDROITIN MAXSTR) 500-400 mg cap Take 1 capsule by mouth three times daily. 01/07/2022 Yes lisinopril-hydroCHLOROthiazide (PRINZIDE,ZESTORETIC) 10-12.5 mg per tablet Take 1 tablet by mouth once daily. Yes DAILY-LUISITO tablet TAKE 1 TABLET BY MOUTH ONCE DAILY. 01/07/2022 Yes iibcutp-lzucdnnbx-xplhcey D3 (CALCIUM 500+D) 500 mg(1,250mg) -200 unit [...] 2022 TIME: 10:40 AM documented in this encounterLima City Hospital10-04-2022 Miscellaneous Notes* Telephone Encounter - Lora Najera RN - 01/07/2022 11:48 AM EDT Patient calls and requests that nephrology referral, office notes, and labs to be faxed to Dr. Murillo at [phone]. Faxed as requested. Lora Najera RN documented in this encounterLima City Hospital10-03-2022 History of Present illness Narrative* Allison [...] for Visit: Pt states her legs feel "really good" for about 4 hours afterteh MLD sessions. She notes she is still in process of obtianing compression pump for home use. Pain: Pain Pain Level: 0 Post Treatment Pain Post Treatment Pain Level: 0 OBJECTIVE MEASURES WITH LEVEL OF FUNCTION: Lymphedema Skin Comments:: tissue soft except for scar areas L>R knees. No pitting observed. TREATMENT: Therapeutic Exercise: 1: [place] Carlife AssistFit seated stepper, seat 14, x 5 min [...] 43 Allison Pryor PT documented in this encounterLima City Hospital09-29-2022 Instructions* Patient Instructions* Miryam Orozco APRN.CJ - 01/02/2022 7:32 AM EDT 1.) Get repeat labs completed either Thursday or Thursday. Schedule appointment for ultrasound. 2.) Increase Lasix to 60 mg daily. Elevate the legs. 3.) Stay well hydrated 4.) Watch salt and processed foods in the diet. 5.) Recommend follow up with Dr. Jackson. 6.) Follow up pending test results Schedule appointment with Nephrology. documented in this encounterLima City Hospital09-29-2022 History of Present illness Narrative* Miryam CHYNA Orozco - 01/02/2022 7:00 AM EDT This is [...] since 12/26/2021 Patient had office visit with [facility] due to lymphedema, labs were ordered, BNPelevated at 244.1, Per provider note patient has new abdominal ascites in addition to bilateral lower extremity lymphedema. Patient does follow with cardiology at [facility], Dr. Jackson. Bun 43, Creatinine: [...] CONDYLE&PLATU MEDIAL&LAT COMPARTMENTS 1990 bilateral total knee s(Racine) ARTHRP KNE CONDYLE&PLATU MEDIAL&LAT COMPARTMENTS 10/24/04 bilateral total knee revisions DELIVERY ONLY , low cervical CHOLECYSTECTOMY COLONOSCOPY FLX DX W/COLLJ SPEC WHEN PFRMD 11/17/2017 Colonoscopy DEBRIDEMENT SUBCUTANEOUS TISSUE 20 SQ CM/< 02/17/07 LEFT LEG DEBRIDEMENT SUBCUTANEOUS TISSUE 20 SQ CM/< [id number] LEFT LEG DEBRIDEMENT SUBCUTANEOUS TISSUE 20 SQ CM/< [id number] LEFT LEG DEBRIDEMENT SUBCUTANEOUS TISSUE 20 SQ CM/< [id number] LEFT LEG DEBRIDEMENT SUBCUTANEOUS TISSUE 20 SQ CM/< [id number] LEFT LEG DEBRIDEMENT SUBCUTANEOUS TISSUE 20 SQ [...] Take 1 capsule by mouth once daily. Ocbmenlqavr-Ypyitfmys-Qqd C-Mn (GLUCOSAMINE CHONDROITIN MAXSTR) 500-400 mg cap Take 1 capsule by mouth three times daily. lisinopril-hydroCHLOROthiazide (PRINZIDE,ZESTORETIC) 10-12.5 mg per tablet Take 1 tablet by mouth once daily. COMPOUNDED PRESCRIPTION Stair lift DAILY-LUISITO tablet TAKE 1 TABLET BY MOUTH ONCE DAILY. cuyyuqa-iffyropri-mwzacxh D3 (CALCIUM 500+D) 500 mg(1,250mg) -200 unit [...] APRN.CJ This note was partially generated using [employer] recognition system. Note was reviewed for accuracy. There may be minor misspellings or grammar miscues with eBureau voice recognition. documented in this encounterLima City [facility] History of Present illness Narrative* Allison Pryor PT - 01/01/2022 11:01 AM EDT Episode Visit Count: 8 Therapist That Will Accept/Oversee The Plan Of Care: Konstantin Allison Start of Care Date: 11/22/21 Onset Date: [...] 47 Allison Pryor PT [facility] Instructions* Patient Instructions* Avis Marrufo APRN.CNP - 12/26/2021 2:48 PM EDT Activity as tolerated Use Ice and/or heat as tolerated as needed documented [facility] encounterL[facility] History of Present illness Narrative* Avis [...] worsening concerns today. Ht 157.5 cm (5' 2") Wt 104.3 kg (230 lb) BMI 42.07 [...] understanding. Total Time Spent: 12 minutes Avis M Greer, BUSINESS OFFICE TECHNOLOGY INSTRUCTOR.MRI MANAGER Review of Systems Constitutional: Negative for chills, [...] suspiciousactivity was identified. 12/26/2021 by Avis Marrufo APRN.MRI MANAGER documented in this encounterL[facility]09-21-[facility]22 Surgical operation note* Operative Report - Roque Delgado MD - 12/25/2021 12:37 PM EDT OPERATIVE/PROCEDURE REPORT LOG ID: [id number] SURGERY/PROCEDURE DATE: 12/25/2021 INCISION/PROCEDURE START TIME: 12:44 PM INCISION CLOSE/PROCEDURE END TIME: 12:54 PM SURGEON(S)/PROCEDURALIST(S) AND SCREEN PRINTING SUPERVISOR(S): Surgeon(s) and Role: * Roque Delgado MD [...] 2021 TIME: 12:57 PM documented in this encounterL[facility]09-21-2022 History and physical note * Roque [...] 2021 TIME: 12:28 PM documented in this encounterL[facility]09-19-2022 Miscellaneous Notes* Telephone Encounter - Roque Delgado MD - 12/23/2021 3:54 PM EDT Neurontin: Has refills at pharmacy. * Telephone Encounter - Felicia Gabriel MA - 12/23/2021 3:13 PM EDT Patient has several refills at pharmacy. Felicia Gabriel MA documented in this encounterL[facility]09-12-[facility]22 History of Present illness Narrative* Allison [...] are reducing by her ability to wear "regular shoes" and when she wears her dress pants. [...] % : 0 TREATMENT: Therapeutic Exercise: 1: [place] [employer] seated stepper, seat 14, x 5 min [...] 50 Allison Pryor PT documented in [facility] encounterL[facility]09-07-[facility] History of Present illness Narrative* Allison Pryor PT - 12/11/2021 4:40 PM EDT Episode Visit Count: 4 Therapist That Will Oversee The Plan Of Care: Allison Proyr Start of Care Date: 11/22/21 Onset Date: [...] 44 Allison Pryor PT documented in this encounterL[facility]08-29-[facility] History of Present illness Narrative* Allison [...] 45 Allison Pryor PT documented in this encounterL[facility]08-23-2022 Miscellaneous Notes* Telephone Encounter - Lizy [...] notify patient. Kayla Castro documented in this encounterLima City Hospital08-19-2022 History of Present illness Narrative* Allison Pryor, PT - 11/22/2021 4:16 PM EDT Episode Visit Count: 1 Therapist That Will Oversee The Plan Of Care: Konstantin Allison Start of Care Date: 11/22/21 Onset Date: [...] Planned: 16 Planned Treatment Interventions: Therapeutic exercise (39227);Manual therapy (11201);Self-care homemanagement (62405);Patient/Family/Caregiver Education PLAN FOR NEXT VISIT: Assess response [...] be good for 8-10 hours. but now "the machine is not doing anything" (doesn't seem to be effective). She states that, "Today is the first day in 6 months that I have been able toget a shoe on". 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 Patient education as noted. Self-Half-Way Management: 1: Reviewed education of lymphedema and [...] 57 Allison Pryor PT documented in this encounterL[facility]08-09-2022 History of Present illness Narrative* Jerod Flynn, [...] 24 Jerod Flynn PT documented in this encounterL[facility]08-02-2022 History of Present illness Narrative* Jerod [...] toward set goals. PLAN FOR NEXT VISIT: MD SUBJECTIVE: Patient Reason for Visit: Pt states [...] 41 Jerod Flynn PT documented in this encounterLima City Hospital07-21-2022 Miscellaneous Notes* Telephone Encounter - Alex Lackey Ma - 10/24/2021 2:09 PM EDT The following approved medication requests have been transmitted electronically. Signed Prescriptions Disp Refills zolpidem (AMBIEN) 10 mg 30 tablet 2 Sig: Take 1 tablet by mouth at bedtime as needed for up to 90 days. ROSEY Class: C-IV MARJ: No Authorizing Provider: LIZY [...] as needed for up to 90 days. ROSEY Class: C-IV MARJ: No Last seen 07/16/2021 NO follow up scheduled. Please review and advise. Rachel Padilla documented in this encounterLima City Hospital07-19-2022 History of Present illness Narrative* Jerod [...] 42 Jerod Flynn PT documented in this encounterL[facility] Hospital07-18-2022 History of Present illness Narrative* Cayla Perez MA - 10/21/2021 10:14 AM EDT POPULATION HEALTH NAVIGATION OUTREACH Action/I Pt will [...] 22, 2021 1:42 PM documented in this encounterLima City Hospital06-28-2022 Miscellaneous Notes* Telephone Encounter - Earlene [...] notify patient. Kayla Castro documented in this encounterLima City Hospital06-17-2022 History of Present illness Narrative* RT Maria [...] 20, 2021 1:27 PM documented in this encounterLima City Hospital06-16-2022 Miscellaneous Notes* Telephone Encounter - Bre Lamar - 09/19/2021 2:42 PM EDT Sent in consult to physical therapy, confirmation number is [id number]. documented in this encounterLima City Hospital06-16-2022 Instructions* Patient Instructions* Avis Marrufo APRN.CNP - 09/19/2021 9:52 AM EDT Activity as tolerated Use Ice and/or heat as tolerated as needed documented in this encounterLima City Hospital06-16-2022 History of Present illness Narrative* Avis Marrufo, NANCI.MRI MANAGER - 09/19/2021 9:20 AM EDT [facility] General Today's Date: 09/19/2021 Last Visit: N/A [...] Medication Relaxation;Positioning;Heat;Massage Comments - - Pain Assessment (RN/SLIME PLANT OPERATOR HELPER) - - Current Pain Medications: o Opioids: [...] abnormality. Degenerative changes. Scoliosis Lower thorax: Unremarkable. Recreation Facility Attendant (topogram) images: No additional findings. Electrodiagnostic Study (EMG): None Recent labs: Creatinine Date Value Ref Range Status 07/16/2021 1.72 (H) 0.58 - 0.96 mg/dL Final @lastegfr(gfr)@ No results found for: PCGLUCOSE Pain Procedures: DATE PROCEDURE IMPROVEMENT None to date at this practice Compliance: PDMP website checked and validated. All prescriptions have been APPROPRIATELY filled. No suspiciousactivity was identified. 09/19/2021 by Avis Marrufo APRN.MRI MANAGER Last Drug screen: Not Applicable Risk Assessment: [...] 09/19/2021 Completed and reviewed, moderate risk Functional Hinduism: Physical Therapy (Land-based) Additional Studies: XR Thoracic [...] decision making from today's date. Avis Marrufo APRN.MRI MANAGER Pain Management [facility] * Kaleigh Rodney MA - 09/19/2021 9:17 [...] patient is not nervous/anxious. documented in this encounterLima City Hospital06-09-2022 Miscellaneous Notes* Telephone Encounter - Alex [...] pharmacy. No need to notify patient. Jacki Rodriguezoran Pss documented in this encounterLima City Hospital05-05-2022 Miscellaneous Notes* Telephone Encounter - Sofía Crowe - 08/08/2021 9:13 AM EDT Patient scheduled with Avis in [place] on 09/19 Sofía Crowe Corn Husker Machine Operator Chauvin to Dr [facility] [address] [place] [address] P: [phone] ext [phone] F: [phone] [email or web address] * Telephone Encounter - Allison Cole - 08/08/2021 8:58 AM EDT Pain Management is scheduled out of [place] office. Routing message to [place]. * Telephone Encounter - Alex Lackey Ma [...] IUD in the uterus. Right renal cyst. Medicare Specialist: CHEIKH Transcribe Date/Time: Jul 25 2021 2:02P Dictated by : MARTHA MOHR MD This examination was interpreted and the report reviewed and electronically signed by: MARTHA MOHR MD on Jul 25 2021 2:53PM EST Results-Findings * * *Final Report* * * DATE OF EXAM: Jul 25 2021 11:09AM [facility] 0531 - CT ABD/PEL WO IVCON [...] abnormality. Degenerative changes. Scoliosis Lower thorax: Unremarkable. Recreation Facility Attendant (topogram) images: No additional findings. documented in this encounterLima City Hospital04-22-2022 Miscellaneous Notes* Telephone Encounter - Mulugeta Jennings APRN.MRI MANAGER - 07/26/2021 11:43 AM EDT Approved. PDMP website checked and validated. All prescriptions have been APPROPRIATELY filled. No suspiciousactivity was identified. 07/26/2021 by Mulugeta Jennings APRN.CNP The following approved medication requests have been transmitted electronically. Signed Prescriptions Disp Refills zolpidem (AMBIEN) 10 mg 30 tablet 2 Sig: Take 1 tablet by mouth at bedtime as needed for up to 90 days. ROSEY Class: C-IV MARJ: No Authorizing Provider: MULUGETA JENNINGS APRN.CNP * Telephone Encounter - Patricia Cole - 07/26/2021 11:39 AM EDT Patient has been identified by name and date of : Yes Pending Prescriptions Disp Refills ZOLPIDEM 10 MG TABLET 30 tablet 2 Sig: Take 1 tablet by mouth at bedtime as needed for up to 90 days. ROSEY Class: C-IV MARJ: No RX INSTRUCTIONS: Please send today, she is out of medication. Patient aware RX will be sent to pharmacy. No need to notify patient. Patricia Mcqueen Pss documented in this encounterLima City Hospital04-21-2022 History of Present illness Narrative* VÍCTOR Chaudhry) - 07/25/2021 10:40 AM EDT Radiology Service [...] IV DATA: Not applicable SIGNED BY: RT Jagdish(Musa) July 25, 2021 1:09 PM documented in this encounterLima City Hospital04-14-2022 Miscellaneous Notes* Telephone Encounter - Suzette Myles Ma - 07/18/2021 11:50 AM EDT Pt called and notified, verbalized understanding. Pt was transferred to [facility] to setupCT Abd/Pelv. Suzette Myles Ma * Telephone Encounter - Lizy Capone MD - 07/18/2021 11:19 AM EDT Please notify patient that her labs and Xray all look OK; I would recommend getting a CT of her abd/pelvis as the next step. Lizy Capone MD documented in this encounterLima City Hospital04-12-2022 History of Present illness Narrative* Latia Weston RT(Musa) - 07/16/2021 10:20 AM EDT Radiology Service [...] DATA: Not applicable SIGNED BY: VÍCTOR Enriquez) July 16, 2021 10:16 AM documented in this encounterLima City Hospital04-12-2022 History of Present illness Narrative* Lizy Capone MD - 07/16/2021 9:00 AM EDT Chief Complaint Patient presents with: Deyvi QUIROZ Mari Lopez is a 81 year old [...] use of Prilosec 20 mg once daily. 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 and had [...] CONDYLE&PLATU MEDIAL&LAT COMPARTMENTS 1990 bilateral total knee s([place]) ARTHRP KNE CONDYLE&PLATU MEDIAL&LAT COMPARTMENTS 10/24/04 bilateral total knee revisions DELIVERY ONLY , low cervical CHOLECYSTECTOMY COLONOSCOPY FLX DX W/COLLJ SPEC WHEN PFRMD 11/17/2017 Colonoscopy DEBRIDEMENT SUBCUTANEOUS TISSUE 20 SQ CM/< 02/17/07 LEFT LEG DEBRIDEMENT SUBCUTANEOUS TISSUE 20 SQ CM/< [id number] LEFT LEG DEBRIDEMENT SUBCUTANEOUS TISSUE 20 SQ CM/< [id number] LEFT LEG DEBRIDEMENT SUBCUTANEOUS TISSUE 20 SQ CM/< [id number] LEFT LEG DEBRIDEMENT SUBCUTANEOUS TISSUE 20 SQ CM/< [id number] LEFT LEG DEBRIDEMENT SUBCUTANEOUS TISSUE 20 SQ [...] as needed for up to 90 days. Tnhgyrphaga-Dyiosgpaz-Rmd C-Mn (GLUCOSAMINE CHONDROITIN MAXSTR) 500-400 mg cap [...] TAKE 1 CAPSULE BY MOUTH ONCE DAILY. bibjazd-lriilcmdn-mkxugbw D3 (CALCIUM 500+D) 500 mg(1,250mg) -200 unit [...] Past Histories independently gathered by the clinical manager technical support and the remaining scribed note accurately describes my personal service to the patient. Medical Decision Making: Problems: Moderate: New problem with uncertain prognosis and 2+ stable chronic illnesses Data: Unique test(s) ordered: 3+ Risk: Moderate: Drug management Medical Decision Making Level: 4 - Moderate Lizy Capone MD The documentation for this note was completed by Suzette Mylse Ma acting as scribe for Lizy Capone MD. July 16, 2021 9:11 AM. Suzette Myles Ma documented in this encounterLima City Hospital08-21-2017 History of Past illness Narrative* Problem Noted Date Resolved Date Screening for colon cancer 11/24/201607/12 Overview: Added automatically from request for surgery [id number] Pain in joint, lower leg 11/14/2008 010 MASS IN SUBCUTANEOUS TISSUE 07/21/200808/04 Non-healing surgical wound 03/16/200705/18 Other injury of other sites of trunk 01/16/2006 07/01/2007 ASA CLASS III 05/07/2005 07/12/2021 Other ventral hernia without mention of obstruction or gangrene 03/26/2004 07/01/2007 THROMBOPHLEBITIS NOS(aka DVT) 07/21/2003 PULMON EMBOLISM/INFARCT(aka EMBOLISM) 07/21/2003 08/21/2009 documented as of this encounter (statuses as of 07/16/2021) [facility] of Past illness Narrative* Problem Noted Date Resolved Date Screening for colon cancer 11/24/201607/12 Overview: Added automatically from request for surgery [id number] Pain in joint, lower leg 11/14/2008 010 MASS IN SUBCUTANEOUS TISSUE 07/21/200808/04 Non-healing surgical wound 03/16/200705/18 Other injury of other sites of trunk 01/16/2006 07/01/2007 ASA CLASS III 05/07/2005 07/12/2021 Other ventral hernia without mention of obstruction or gangrene 03/26/2004 07/01/2007 THROMBOPHLEBITIS NOS(aka DVT) 07/21/2003 PULMON EMBOLISM/INFARCT(aka EMBOLISM) 07/21/2003 08/21/2009 documented as of this encounter (statuses as of 07/18/2021) [facility] of Past illness Narrative* Problem Noted Date Resolved Date Screening for colon cancer 11/24/201607/12 Overview: Added automatically from request for surgery [id number] Pain in joint, lower leg 11/14/2008 010 MASS IN SUBCUTANEOUS TISSUE 07/21/200808/04 Non-healing surgical wound 03/16/200705/18 Other injury of other sites of trunk 01/16/2006 07/01/2007 ASA CLASS III 05/07/2005 07/12/2021 Other ventral hernia without mention of obstruction or gangrene 03/26/2004 07/01/2007 THROMBOPHLEBITIS NOS(aka DVT) 07/21/2003 PULMON EMBOLISM/INFARCT(aka EMBOLISM) 07/21/2003 08/21/2009 documented as of this encounter (statuses as of 07/26/2021) [facility] of [facility] illness Narrative* Problem Noted Date Resolved Date Screening for colon cancer 11/24/201607/12 Overview: Added automatically from request for surgery [id number] Pain in joint, lower leg 11/14/2008 010 MASS IN SUBCUTANEOUS TISSUE 07/21/200808/04 Non-healing surgical wound 03/16/200705/18 Other injury of other sites of trunk 01/16/2006 07/01/2007 ASA CLASS III 05/07/2005 07/12/2021 Other ventral hernia without mention of obstruction or gangrene 03/26/2004 07/01/2007 THROMBOPHLEBITIS NOS(aka DVT) 07/21/2003 PULMON EMBOLISM/INFARCT(aka EMBOLISM) 07/21/2003 08/21/2009 documented as of this encounter (statuses as of 07/26/2021) [facility] of [facility] illness Narrative* Problem Noted Date Resolved Date Screening for colon cancer 11/24/201607/12 Overview: Added automatically from request for surgery [id number] Pain in joint, lower leg 11/14/2008 010 MASS IN SUBCUTANEOUS TISSUE 07/21/200808/04 Non-healing surgical wound 03/16/200705/18 Other injury of other sites of trunk 01/16/2006 07/01/2007 ASA CLASS III 05/07/2005 07/12/2021 Other ventral hernia without mention of obstruction or gangrene 03/26/2004 07/01/2007 THROMBOPHLEBITIS NOS(aka DVT) 07/21/2003 PULMON EMBOLISM/INFARCT(aka EMBOLISM) 07/21/2003 08/21/2009 documented as of this encounter (statuses as of 08/08/2021) [facility] Narrative* Problem Noted Date Resolved Date Screening for colon cancer 11/24/201607/12 Overview: Added automatically from request for surgery [id number] Pain in joint, lower leg 11/14/2008 010 MASS IN SUBCUTANEOUS TISSUE 07/21/200808/04 Non-healing surgical wound 03/16/200705/18 Other injury of other sites of trunk 01/16/2006 07/01/2007 ASA CLASS III 05/07/2005 07/12/2021 Other ventral hernia without mention of obstruction or gangrene 03/26/2004 07/01/2007 THROMBOPHLEBITIS NOS(aka DVT) 07/21/2003 PULMON EMBOLISM/INFARCT(aka EMBOLISM) 07/21/2003 08/21/2009 documented as of this encounter (statuses as of 09/12/2021) [facility] Narrative* Problem Noted Date Resolved Date Screening for colon cancer 11/24/201607/12 Overview: Added automatically from request for surgery [id number] Pain in joint, lower leg 11/14/2008 010 MASS IN SUBCUTANEOUS TISSUE 07/21/200808/04 Non-healing surgical wound 03/16/200705/18 Other injury of other sites of trunk 01/16/2006 07/01/2007 ASA CLASS III 05/07/2005 07/12/2021 Other ventral hernia without mention of obstruction or gangrene 03/26/2004 07/01/2007 THROMBOPHLEBITIS NOS(aka DVT) 07/21/2003 PULMON EMBOLISM/INFARCT(aka EMBOLISM) 07/21/2003 08/21/2009 documented as of this encounter (statuses as of 09/19/2021) [facility] Narrative* Problem Noted Date Resolved Date Screening for colon cancer 11/24/201607/12 Overview: Added automatically from request for surgery [id number] Pain in joint, lower leg 11/14/2008 010 MASS IN SUBCUTANEOUS TISSUE 07/21/200808/04 Non-healing surgical wound 03/16/200705/18 Other injury of other sites of trunk 01/16/2006 07/01/2007 ASA CLASS III 05/07/2005 07/12/2021 Other ventral hernia without mention of obstruction or gangrene 03/26/2004 07/01/2007 THROMBOPHLEBITIS NOS(aka DVT) 07/21/2003 PULMON EMBOLISM/INFARCT(aka EMBOLISM) 07/21/2003 08/21/2009 documented as of this encounter (statuses as of 09/19/2021) [facility] Narrative* Problem Noted Date Resolved Date Screening for colon cancer 11/24/201607/12 Overview: Added automatically from request for surgery [id number] Pain in joint, lower leg 11/14/2008 010 MASS IN SUBCUTANEOUS TISSUE 07/21/200808/04 Non-healing surgical wound 03/16/200705/18 Other injury of other sites of trunk 01/16/2006 07/01/2007 ASA CLASS III 05/07/2005 07/12/2021 Other ventral hernia without mention of obstruction or gangrene 03/26/2004 07/01/2007 THROMBOPHLEBITIS NOS(aka DVT) 07/21/2003 PULMON EMBOLISM/INFARCT(aka EMBOLISM) 07/21/2003 08/21/2009 documented as of this encounter (statuses as of 09/21/2021) [facility] Narrative* Problem Noted Date Resolved Date Screening for colon cancer 11/24/201607/12 Overview: Added automatically from request for surgery [id number] Pain in joint, lower leg 11/14/2008 010 MASS IN SUBCUTANEOUS TISSUE 07/21/200808/04 Non-healing surgical wound 03/16/200705/18 Other injury of other sites of trunk 01/16/2006 07/01/2007 ASA CLASS III 05/07/2005 07/12/2021 Other ventral hernia without mention of obstruction or gangrene 03/26/2004 07/01/2007 THROMBOPHLEBITIS NOS(aka DVT) 07/21/2003 PULMON EMBOLISM/INFARCT(aka EMBOLISM) 07/21/2003 08/21/2009 documented as of this encounter (statuses as of 10/01/2021) [facility] Narrative* Problem Noted Date Resolved Date Screening for colon cancer 11/24/201607/12 Overview: Added automatically from request for surgery [id number] Pain in joint, lower leg 11/14/2008 010 MASS IN SUBCUTANEOUS TISSUE 07/21/200808/04 Non-healing surgical wound 03/16/200705/18 Other injury of other sites of trunk 01/16/2006 07/01/2007 ASA CLASS III 05/07/2005 07/12/2021 Other ventral hernia without mention of obstruction or gangrene 03/26/2004 07/01/2007 THROMBOPHLEBITIS NOS(aka DVT) 07/21/2003 PULMON EMBOLISM/INFARCT(aka EMBOLISM) 07/21/2003 08/21/2009 documented as of this encounter (statuses as of 10/21/2021) [facility] Narrative* Problem Noted Date Resolved Date Screening for colon cancer 11/24/201607/12 Overview: Added automatically from request for surgery [id number] Pain in joint, lower leg 11/14/2008 010 MASS IN SUBCUTANEOUS TISSUE 07/21/200808/04 Non-healing surgical wound 03/16/200705/18 Other injury of other sites of trunk 01/16/2006 07/01/2007 ASA CLASS III 05/07/2005 07/12/2021 Other ventral hernia without mention of obstruction or gangrene 03/26/2004 07/01/2007 THROMBOPHLEBITIS NOS(aka DVT) 07/21/2003 PULMON EMBOLISM/INFARCT(aka EMBOLISM) 07/21/2003 08/21/2009 documented as of this encounter (statuses as of 10/22/2021) [facility] Narrative* Problem Noted Date Resolved Date Screening for colon cancer 11/24/201607/12 Overview: Added automatically from request for surgery [id number] Pain in joint, lower leg 11/14/2008 010 MASS IN SUBCUTANEOUS TISSUE 07/21/200808/04 Non-healing surgical wound 03/16/200705/18 Other injury of other sites of trunk 01/16/2006 07/01/2007 ASA CLASS III 05/07/2005 07/12/2021 Other ventral hernia without mention of obstruction or gangrene 03/26/2004 07/01/2007 THROMBOPHLEBITIS NOS(aka DVT) 07/21/2003 PULMON EMBOLISM/INFARCT(aka EMBOLISM) 07/21/2003 08/21/2009 documented as of this encounter (statuses as of 10/22/2021) [facility] Narrative* Problem Noted Date Resolved Date Screening for colon cancer 11/24/201607/12 Overview: Added automatically from request for surgery [id number] Pain in joint, lower leg 11/14/2008 010 MASS IN SUBCUTANEOUS TISSUE 07/21/200808/04 Non-healing surgical wound 03/16/200705/18 Other injury of other sites of trunk 01/16/2006 07/01/2007 ASA CLASS III 05/07/2005 07/12/2021 Other ventral hernia without mention of obstruction or gangrene 03/26/2004 07/01/2007 THROMBOPHLEBITIS NOS(aka DVT) 07/21/2003 PULMON EMBOLISM/INFARCT(aka EMBOLISM) 07/21/2003 08/21/2009 documented as of this encounter (statuses as of 10/24/2021) [facility] Narrative* Problem Noted Date Resolved Date Screening for colon cancer 11/24/201607/12 Overview: Added automatically from request for surgery [id number] Pain in joint, lower leg 11/14/2008 010 MASS IN SUBCUTANEOUS TISSUE 07/21/200808/04 Non-healing surgical wound 03/16/200705/18 Other injury of other sites of trunk 01/16/2006 07/01/2007 ASA CLASS III 05/07/2005 07/12/2021 Other ventral hernia without mention of obstruction or gangrene 03/26/2004 07/01/2007 THROMBOPHLEBITIS NOS(aka DVT) 07/21/2003 PULMON EMBOLISM/INFARCT(aka EMBOLISM) 07/21/2003 08/21/2009 documented as of this encounter (statuses as of 11/05/2021) [facility] Narrative* Problem Noted Date Resolved Date Screening for colon cancer 11/24/201607/12 Overview: Added automatically from request for surgery [id number] Pain in joint, lower leg 11/14/2008 010 MASS IN SUBCUTANEOUS TISSUE 07/21/200808/04 Non-healing surgical wound 03/16/200705/18 Other injury of other sites of trunk 01/16/2006 07/01/2007 ASA CLASS III 05/07/2005 07/12/2021 Other ventral hernia without mention of obstruction or gangrene 03/26/2004 07/01/2007 THROMBOPHLEBITIS NOS(aka DVT) 07/21/2003 PULMON EMBOLISM/INFARCT(aka EMBOLISM) 07/21/2003 08/21/2009 documented as of this encounter (statuses as of 11/12/2021) [facility] Narrative* Problem Noted Date Resolved Date Screening for colon cancer 11/24/201607/12 Overview: Added automatically from request for surgery [id number] Pain in joint, lower leg 11/14/2008 010 MASS IN SUBCUTANEOUS TISSUE 07/21/200808/04 Non-healing surgical wound 03/16/200705/18 Other injury of other sites of trunk 01/16/2006 07/01/2007 ASA CLASS III 05/07/2005 07/12/2021 Other ventral hernia without mention of obstruction or gangrene 03/26/2004 07/01/2007 THROMBOPHLEBITIS NOS(aka DVT) 07/21/2003 PULMON EMBOLISM/INFARCT(aka EMBOLISM) 07/21/2003 08/21/2009 documented as of this encounter (statuses as of 11/13/2021) [facility] Narrative* Problem Noted Date Resolved Date Screening for colon cancer 11/24/201607/12 Overview: Added automatically from request for surgery [id number] Pain in joint, lower leg 11/14/2008 010 MASS IN SUBCUTANEOUS TISSUE 07/21/200808/04 Non-healing surgical wound 03/16/200705/18 Other injury of other sites of trunk 01/16/2006 07/01/2007 ASA CLASS III 05/07/2005 07/12/2021 Other ventral hernia without mention of obstruction or gangrene 03/26/2004 07/01/2007 THROMBOPHLEBITIS NOS(aka DVT) 07/21/2003 PULMON EMBOLISM/INFARCT(aka EMBOLISM) 07/21/2003 08/21/2009 documented as of this encounter (statuses as of 11/22/2021) [facility]08-21-2017 History of Past illness Narrative* Problem Noted Date Resolved Date Screening for colon cancer 11/24/201607/12 Overview: Added automatically from request for surgery [id number] Pain in joint, lower leg 11/14/2008 010 MASS IN SUBCUTANEOUS TISSUE 07/21/200808/04 Non-healing surgical wound 03/16/200705/18 Other injury of other sites of trunk 01/16/2006 07/01/2007 ASA CLASS III 05/07/2005 07/12/2021 Other ventral hernia without mention of obstruction or gangrene 03/26/2004 07/01/2007 THROMBOPHLEBITIS NOS(aka DVT) 07/21/2003 PULMON EMBOLISM/INFARCT(aka EMBOLISM) 07/21/2003 08/21/2009 documented as of this encounter (statuses as of 11/26/2021) [facility]2017 History of Past illness Narrative* Problem Noted Date Resolved Date Screening for colon cancer 11/24/201607/12 Overview: Added automatically from request for surgery [id number] Pain in joint, lower leg 11/14/2008 010 MASS IN SUBCUTANEOUS TISSUE 07/21/200808/04 Non-healing surgical wound 03/16/200705/18 Other injury of other sites of trunk 01/16/2006 07/01/2007 ASA CLASS III 05/07/2005 07/12/2021 Other ventral hernia without mention of obstruction or gangrene 03/26/2004 07/01/2007 THROMBOPHLEBITIS NOS(aka DVT) 07/21/2003 PULMON EMBOLISM/INFARCT(aka EMBOLISM) 07/21/2003 08/21/2009 documented as of this encounter (statuses as of 12/02/2021) [facility] History of Past illness Narrative* Problem Noted Date Resolved Date Screening for colon cancer 11/24/201607/12 Overview: Added automatically from request for surgery [id number] Pain in joint, lower leg 11/14/2008 010 MASS IN SUBCUTANEOUS TISSUE 07/21/200808/04 Non-healing surgical wound 03/16/200705/18 Other injury of other sites of trunk 01/16/2006 07/01/2007 ASA CLASS III 05/07/2005 07/12/2021 Other ventral hernia without mention of obstruction or gangrene 03/26/2004 07/01/2007 THROMBOPHLEBITIS NOS(aka DVT) 07/21/2003 PULMON EMBOLISM/INFARCT(aka EMBOLISM) 07/21/2003 08/21/2009 documented as of this encounter (statuses as of 12/03/2021) [facility] History of Past illness Narrative* Problem Noted Date Resolved Date Screening for colon cancer 11/24/201607/12 Overview: Added automatically from request for surgery [id number] Pain in joint, lower leg 11/14/2008 010 MASS IN SUBCUTANEOUS TISSUE 07/21/200808/04 Non-healing surgical wound 03/16/200705/18 Other injury of other sites of trunk 01/16/2006 07/01/2007 ASA CLASS III 05/07/2005 07/12/2021 Other ventral hernia without mention of obstruction or gangrene 03/26/2004 07/01/2007 THROMBOPHLEBITIS NOS(aka DVT) 07/21/2003 PULMON EMBOLISM/INFARCT(aka EMBOLISM) 07/21/2003 08/21/2009 documented as of this encounter (statuses as of 12/11/2021) [facility] History of Past illness Narrative* Problem Noted Date Resolved Date Screening for colon cancer 11/24/201607/12 Overview: Added automatically from request for surgery [id number] Pain in joint, lower leg 11/14/2008 010 MASS IN SUBCUTANEOUS TISSUE 07/21/200808/04 Non-healing surgical wound 03/16/200705/18 Other injury of other sites of trunk 01/16/2006 07/01/2007 ASA CLASS III 05/07/2005 07/12/2021 Other ventral hernia without mention of obstruction or gangrene 03/26/2004 07/01/2007 THROMBOPHLEBITIS NOS(aka DVT) 07/21/2003 PULMON EMBOLISM/INFARCT(aka EMBOLISM) 07/21/2003 08/21/2009 documented as of this encounter (statuses as of 12/16/2021) [facility] History of Past illness Narrative* Problem Noted Date Resolved Date Screening for colon cancer 11/24/201607/12 Overview: Added automatically from request for surgery [id number] Pain in joint, lower leg 11/14/2008 010 MASS IN SUBCUTANEOUS TISSUE 07/21/200808/04 Non-healing surgical wound 03/16/200705/18 Other injury of other sites of trunk 01/16/2006 07/01/2007 ASA CLASS III 05/07/2005 07/12/2021 Other ventral hernia without mention of obstruction or gangrene 03/26/2004 07/01/2007 THROMBOPHLEBITIS NOS(aka DVT) 07/21/2003 PULMON EMBOLISM/INFARCT(aka EMBOLISM) 07/21/2003 08/21/2009 documented as of this encounter (statuses as of 12/23/2021) [facility] History of Past illness Narrative* Problem Noted Date Resolved Date Screening for colon cancer 11/24/201607/12 Overview: Added automatically from request for surgery [id number] Pain in joint, lower leg 11/14/2008 010 MASS IN SUBCUTANEOUS TISSUE 07/21/200808/04 Non-healing surgical wound 03/16/200705/18 Other injury of other sites of trunk 01/16/2006 07/01/2007 ASA CLASS III 05/07/2005 07/12/2021 Other ventral hernia without mention of obstruction or gangrene 03/26/2004 07/01/2007 THROMBOPHLEBITIS NOS(aka DVT) 07/21/2003 PULMON EMBOLISM/INFARCT(aka EMBOLISM) 07/21/2003 08/21/2009 documented as of this encounter (statuses as of 12/26/2021) [facility] History of Past illness Narrative* Problem Noted Date Resolved Date Screening for colon cancer 11/24/201607/12 Overview: Added automatically from request for surgery [id number] Pain in joint, lower leg 11/14/2008 010 MASS IN SUBCUTANEOUS TISSUE 07/21/200808/04 Non-healing surgical wound 03/16/200705/18 Other injury of other sites of trunk 01/16/2006 07/01/2007 ASA CLASS III 05/07/2005 07/12/2021 Other ventral hernia without mention of obstruction or gangrene 03/26/2004 07/01/2007 THROMBOPHLEBITIS NOS(aka DVT) 07/21/2003 PULMON EMBOLISM/INFARCT(aka EMBOLISM) 07/21/2003 08/21/2009 documented as of this encounter (statuses as of 12/26/2021) [facility] History of Past illness Narrative* Problem Noted Date Resolved Date Screening for colon cancer 11/24/201607/12 Overview: Added automatically from request for surgery [id number] Pain in joint, lower leg 11/14/2008 010 MASS IN SUBCUTANEOUS TISSUE 07/21/200808/04 Non-healing surgical wound 03/16/200705/18 Other injury of other sites of trunk 01/16/2006 07/01/2007 ASA CLASS III 05/07/2005 07/12/2021 Other ventral hernia without mention of obstruction or gangrene 03/26/2004 07/01/2007 THROMBOPHLEBITIS NOS(aka DVT) 07/21/2003 PULMON EMBOLISM/INFARCT(aka EMBOLISM) 07/21/2003 08/21/2009 documented as of this encounter (statuses as of 01/01/2022) [facility] History of Past illness Narrative* Problem Noted Date Resolved Date Screening for colon cancer 11/24/201607/12 Overview: Added automatically from request for surgery [id number] Pain in joint, lower leg 11/14/2008 010 MASS IN SUBCUTANEOUS TISSUE 07/21/200808/04 Non-healing surgical wound 03/16/200705/18 Other injury of other sites of trunk 01/16/2006 07/01/2007 ASA CLASS III 05/07/2005 07/12/2021 Other ventral hernia without mention of obstruction or gangrene 03/26/2004 07/01/2007 THROMBOPHLEBITIS NOS(aka DVT) 07/21/2003 PULMON EMBOLISM/INFARCT(aka EMBOLISM) 07/21/2003 08/21/2009 documented as of this encounter (statuses as of 01/02/2022) [facility] History of Past illness Narrative* Problem Noted Date Resolved Date Screening for colon cancer 11/24/201607/12 Overview: Added automatically from request for surgery [id number] Pain in joint, lower leg 11/14/2008 010 MASS IN SUBCUTANEOUS TISSUE 07/21/200808/04 Non-healing surgical wound 03/16/200705/18 Other injury of other sites of trunk 01/16/2006 07/01/2007 ASA CLASS III 05/07/2005 07/12/2021 Other ventral hernia without mention of obstruction or gangrene 03/26/2004 07/01/2007 THROMBOPHLEBITIS NOS(aka DVT) 07/21/2003 PULMON EMBOLISM/INFARCT(aka EMBOLISM) 07/21/2003 08/21/2009 documented as of this encounter (statuses as of 01/04/2022) [facility] History of Past illness Narrative* Problem Noted Date Resolved Date Screening for colon cancer 11/24/201607/12 Overview: Added automatically from request for surgery [id number] Pain in joint, lower leg 11/14/2008 010 MASS IN SUBCUTANEOUS TISSUE 07/21/200808/04 Non-healing surgical wound 03/16/200705/18 Other injury of other sites of trunk 01/16/2006 07/01/2007 ASA CLASS III 05/07/2005 07/12/2021 Other ventral hernia without mention of obstruction or gangrene 03/26/2004 07/01/2007 THROMBOPHLEBITIS NOS(aka DVT) 07/21/2003 PULMON EMBOLISM/INFARCT(aka EMBOLISM) 07/21/2003 08/21/2009 documented as of this encounter (statuses as of 01/07/2022) [facility] History of Past illness Narrative* Problem Noted Date Resolved Date Screening for colon cancer 11/24/201607/12 Overview: Added automatically from request for surgery [id number] Pain in joint, lower leg 11/14/2008 010 MASS IN SUBCUTANEOUS TISSUE 07/21/200808/04 Non-healing surgical wound 03/16/200705/18 Other injury of other sites of trunk 01/16/2006 07/01/2007 ASA CLASS III 05/07/2005 07/12/2021 Other ventral hernia without mention of obstruction or gangrene 03/26/2004 07/01/2007 THROMBOPHLEBITIS NOS(aka DVT) 07/21/2003 PULMON EMBOLISM/INFARCT(aka EMBOLISM) 07/21/2003 08/21/2009 documented as of this encounter (statuses as of 01/07/2022) [facility] History of Past illness Narrative* Problem Noted Date Resolved Date Screening for colon cancer 11/24/201607/12 Overview: Added automatically from request for surgery [id number] Pain in joint, lower leg 11/14/2008 010 MASS IN SUBCUTANEOUS TISSUE 07/21/200808/04 Non-healing surgical wound 03/16/200705/18 Other injury of other sites of trunk 01/16/2006 07/01/2007 ASA CLASS III 05/07/2005 07/12/2021 Other ventral hernia without mention of obstruction or gangrene 03/26/2004 07/01/2007 THROMBOPHLEBITIS NOS(aka DVT) 07/21/2003 PULMON EMBOLISM/INFARCT(aka EMBOLISM) 07/21/2003 08/21/2009 documented as of this encounter (statuses as of 01/09/2022) [facility] History of Past illness Narrative* Problem Noted Date Resolved Date Screening for colon cancer 11/24/201607/12 Overview: Added automatically from request for surgery [id number] Pain in joint, lower leg 11/14/2008 010 MASS IN SUBCUTANEOUS TISSUE 07/21/200808/04 Non-healing surgical wound 03/16/200705/18 Other injury of other sites of trunk 01/16/2006 07/01/2007 ASA CLASS III 05/07/2005 07/12/2021 Other ventral hernia without mention of obstruction or gangrene 03/26/2004 07/01/2007 THROMBOPHLEBITIS NOS(aka DVT) 07/21/2003 PULMON EMBOLISM/INFARCT(aka EMBOLISM) 07/21/2003 08/21/2009 documented as of this encounter (statuses as of 01/09/2022) [facility]2017 History of Past illness Narrative* Problem Noted Date Resolved Date Screening for colon cancer 11/24/201607/12 Overview: Added automatically from request for surgery [id number] Pain in joint, lower leg 11/14/2008 010 MASS IN SUBCUTANEOUS TISSUE 07/21/200808/04 Non-healing surgical wound 03/16/200705/18 Other injury of other sites of trunk 01/16/2006 07/01/2007 ASA CLASS III 05/07/2005 07/12/2021 Other ventral hernia without mention of obstruction or gangrene 03/26/2004 07/01/2007 THROMBOPHLEBITIS NOS(aka DVT) 07/21/2003 PULMON EMBOLISM/INFARCT(aka EMBOLISM) 07/21/2003 08/21/2009 documented as of this encounter (statuses as of 01/14/2022) [facility] History of Past illness Narrative* Problem Noted Date Resolved Date Screening for colon cancer 11/24/201607/12 Overview: Added automatically from request for surgery [id number] Pain in joint, lower leg 11/14/2008 010 MASS IN SUBCUTANEOUS TISSUE 07/21/200808/04 Non-healing surgical wound 03/16/200705/18 Other injury of other sites of trunk 01/16/2006 07/01/2007 ASA CLASS III 05/07/2005 07/12/2021 Other ventral hernia without mention of obstruction or gangrene 03/26/2004 07/01/2007 THROMBOPHLEBITIS NOS(aka DVT) 07/21/2003 PULMON EMBOLISM/INFARCT(aka EMBOLISM) 07/21/2003 08/21/2009 documented as of this encounter (statuses as of 01/20/2022) [facility] History of Past illness Narrative* Problem Noted Date Resolved Date Screening for colon cancer 11/24/201607/12 Overview: Added automatically from request for surgery [id number] Pain in joint, lower leg 11/14/2008 010 MASS IN SUBCUTANEOUS TISSUE 07/21/200808/04 Non-healing surgical wound 03/16/200705/18 Other injury of other sites of trunk 01/16/2006 07/01/2007 ASA CLASS III 05/07/2005 07/12/2021 Other ventral hernia without mention of obstruction or gangrene 03/26/2004 07/01/2007 THROMBOPHLEBITIS NOS(aka DVT) 07/21/2003 PULMON EMBOLISM/INFARCT(aka EMBOLISM) 07/21/2003 08/21/2009 documented as of this encounter (statuses as of 01/30/2022) [facility] History of Past illness Narrative* Problem Noted Date Resolved Date Screening for colon cancer 11/24/201607/12 Overview: Added automatically from request for surgery [id number] Pain in joint, lower leg 11/14/2008 010 MASS IN SUBCUTANEOUS TISSUE 07/21/200808/04 Non-healing surgical wound 03/16/200705/18 Other injury of other sites of trunk 01/16/2006 07/01/2007 ASA CLASS III 05/07/2005 07/12/2021 Other ventral hernia without mention of obstruction or gangrene 03/26/2004 07/01/2007 THROMBOPHLEBITIS NOS(aka DVT) 07/21/2003 PULMON EMBOLISM/INFARCT(aka EMBOLISM) 07/21/2003 08/21/2009 documented as of this encounter (statuses as of 01/30/2022) [facility] History of Past illness Narrative* Problem Noted Date Resolved Date Screening for colon cancer 11/24/201607/12 Overview: Added automatically from request for surgery [id number] Pain in joint, lower leg 11/14/2008 010 MASS IN SUBCUTANEOUS TISSUE 07/21/200808/04 Non-healing surgical wound 03/16/200705/18 Other injury of other sites of trunk 01/16/2006 07/01/2007 ASA CLASS III 05/07/2005 07/12/2021 Other ventral hernia without mention of obstruction or gangrene 03/26/2004 07/01/2007 THROMBOPHLEBITIS NOS(aka DVT) 07/21/2003 PULMON EMBOLISM/INFARCT(aka EMBOLISM) 07/21/2003 08/21/2009 documented as of this encounter (statuses as of 02/14/2022) [facility] History of Past illness Narrative* Problem Noted Date Resolved Date Screening for colon cancer 11/24/201607/12 Overview: Added automatically from request for surgery [id number] Pain in joint, lower leg 11/14/2008 010 MASS IN SUBCUTANEOUS TISSUE 07/21/200808/04 Non-healing surgical wound 03/16/200705/18 Other injury of other sites of trunk 01/16/2006 07/01/2007 ASA CLASS III 05/07/2005 07/12/2021 Other ventral hernia without mention of obstruction or gangrene 03/26/2004 07/01/2007 THROMBOPHLEBITIS NOS(aka DVT) 07/21/2003 PULMON EMBOLISM/INFARCT(aka EMBOLISM) 07/21/2003 08/21/2009 documented as of this encounter (statuses as of 02/18/2022) [facility] History of Past illness Narrative* Problem Noted Date Resolved Date Screening for colon cancer 11/24/201607/12 Overview: Added automatically from request for surgery [id number] Pain in joint, lower leg 11/14/2008 010 MASS IN SUBCUTANEOUS TISSUE 07/21/200808/04 Non-healing surgical wound 03/16/200705/18 Other injury of other sites of trunk 01/16/2006 07/01/2007 ASA CLASS III 05/07/2005 07/12/2021 Other ventral hernia without mention of obstruction or gangrene 03/26/2004 07/01/2007 THROMBOPHLEBITIS NOS(aka DVT) 07/21/2003 PULMON EMBOLISM/INFARCT(aka EMBOLISM) 07/21/2003 08/21/2009 documented as of this encounter (statuses as of 03/04/2022) [facility] History of Past illness Narrative* Problem Noted Date Resolved Date Screening for colon cancer 11/24/201607/12 Overview: Added automatically from request for surgery [id number] Pain in joint, lower leg 11/14/2008 010 MASS IN SUBCUTANEOUS TISSUE 07/21/200808/04 Non-healing surgical wound 03/16/200705/18 Other injury of other sites of trunk 01/16/2006 07/01/2007 ASA CLASS III 05/07/2005 07/12/2021 Other ventral hernia without mention of obstruction or gangrene 03/26/2004 07/01/2007 THROMBOPHLEBITIS NOS(aka DVT) 07/21/2003 PULMON EMBOLISM/INFARCT(aka EMBOLISM) 07/21/2003 08/21/2009 documented as of this encounter (statuses as of 04/16/2022) [facility] History of Past illness Narrative* Problem Noted Date Resolved Date Screening for colon cancer 11/24/201607/12 Overview: Added automatically from request for surgery [id number] Pain in joint, lower leg 11/14/2008 010 MASS IN SUBCUTANEOUS TISSUE 07/21/200808/04 Non-healing surgical wound 03/16/200705/18 Other injury of other sites of trunk 01/16/2006 07/01/2007 ASA CLASS III 05/07/2005 07/12/2021 Other ventral hernia without mention of obstruction or gangrene 03/26/2004 07/01/2007 THROMBOPHLEBITIS NOS(aka DVT) 07/21/2003 PULMON EMBOLISM/INFARCT(aka EMBOLISM) 07/21/2003 08/21/2009 documented as of this encounter (statuses as of 04/17/2022) [facility] History of Past illness Narrative* Problem Noted Date Resolved Date Screening for colon cancer 11/24/201607/12 Overview: Added automatically from request for surgery [id number] Pain in joint, lower leg 11/14/2008 010 MASS IN SUBCUTANEOUS TISSUE 07/21/200808/04 Non-healing surgical wound 03/16/200705/18 Other injury of other sites of trunk 01/16/2006 07/01/2007 ASA CLASS III 05/07/2005 07/12/2021 Other ventral hernia without mention of obstruction or gangrene 03/26/2004 07/01/2007 THROMBOPHLEBITIS NOS(aka DVT) 07/21/2003 PULMON EMBOLISM/INFARCT(aka EMBOLISM) 07/21/2003 08/21/2009 documented as of this encounter (statuses as of 04/29/2022) [facility] History of Past illness Narrative* Problem Noted Date Resolved Date Screening for colon cancer 11/24/201607/12 Overview: Added automatically from request for surgery [id number] Pain in joint, lower leg 11/14/2008 010 MASS IN SUBCUTANEOUS TISSUE 07/21/200808/04 Non-healing surgical wound 03/16/200705/18 Other injury of other sites of trunk 01/16/2006 07/01/2007 ASA CLASS III 05/07/2005 07/12/2021 Other ventral hernia without mention of obstruction or gangrene 03/26/2004 07/01/2007 THROMBOPHLEBITIS NOS(aka DVT) 07/21/2003 PULMON EMBOLISM/INFARCT(aka EMBOLISM) 07/21/2003 08/21/2009 documented as of this encounter (statuses as of 04/30/2022) [facility] History of Past illness Narrative* Problem Noted Date Resolved Date Screening for colon cancer 11/24/201607/12 Overview: Added automatically from request for surgery [id number] Pain in joint, lower leg 11/14/2008 010 MASS IN SUBCUTANEOUS TISSUE 07/21/200808/04 Non-healing surgical wound 03/16/200705/18 Other injury of other sites of trunk 01/16/2006 07/01/2007 ASA CLASS III 05/07/2005 07/12/2021 Other ventral hernia without mention of obstruction or gangrene 03/26/2004 07/01/2007 THROMBOPHLEBITIS NOS(aka DVT) 07/21/2003 PULMON EMBOLISM/INFARCT(aka EMBOLISM) 07/21/2003 08/21/2009 documented as of this encounter (statuses as of 05/06/2022) [facility] History of Past illness Narrative* Problem Noted Date Resolved Date Screening for colon cancer 11/24/201607/12 Overview: Added automatically from request for surgery [id number] Pain in joint, lower leg 11/14/2008 010 MASS IN SUBCUTANEOUS TISSUE 07/21/200808/04 Non-healing surgical wound 03/16/200705/18 Other injury of other sites of trunk 01/16/2006 07/01/2007 ASA CLASS III 05/07/2005 07/12/2021 Other ventral hernia without mention of obstruction or gangrene 03/26/2004 07/01/2007 THROMBOPHLEBITIS NOS(aka DVT) 07/21/2003 PULMON EMBOLISM/INFARCT(aka EMBOLISM) 07/21/2003 08/21/2009 documented as of this encounter (statuses as of 05/15/2022) [facility] History of Past illness Narrative* Problem Noted Date Resolved Date Screening for colon cancer 11/24/201607/12 Overview: Added automatically from request for surgery [id number] Pain in joint, lower leg 11/14/2008 010 MASS IN SUBCUTANEOUS TISSUE 07/21/200808/04 Non-healing surgical wound 03/16/200705/18 Other injury of other sites of trunk 01/16/2006 07/01/2007 ASA CLASS III 05/07/2005 07/12/2021 Other ventral hernia without mention of obstruction or gangrene 03/26/2004 07/01/2007 THROMBOPHLEBITIS NOS(aka DVT) 07/21/2003 PULMON EMBOLISM/INFARCT(aka EMBOLISM) 07/21/2003 08/21/2009 documented as of this encounter (statuses as of 05/16/2022) [facility] History of Past illness Narrative* Problem Noted Date Resolved Date Screening for colon cancer 11/24/201607/12 Overview: Added automatically from request for surgery [id number] Pain in joint, lower leg 11/14/2008 010 MASS IN SUBCUTANEOUS TISSUE 07/21/200808/04 Non-healing surgical wound 03/16/200705/18 Other injury of other sites of trunk 01/16/2006 07/01/2007 ASA CLASS III 05/07/2005 07/12/2021 Other ventral hernia without mention of obstruction or gangrene 03/26/2004 07/01/2007 THROMBOPHLEBITIS NOS(aka DVT) 07/21/2003 PULMON EMBOLISM/INFARCT(aka EMBOLISM) 07/21/2003 08/21/2009 documented as of this encounter (statuses as of 05/19/2022) [facility] History of Past illness Narrative* Problem Noted Date Resolved Date Screening for colon cancer 11/24/201607/12 Overview: Added automatically from request for surgery [id number] Pain in joint, lower leg 11/14/2008 010 MASS IN SUBCUTANEOUS TISSUE 07/21/200808/04 Non-healing surgical wound 03/16/200705/18 Other injury of other sites of trunk 01/16/2006 07/01/2007 ASA CLASS III 05/07/2005 07/12/2021 Other ventral hernia without mention of obstruction or gangrene 03/26/2004 07/01/2007 THROMBOPHLEBITIS NOS(aka DVT) 07/21/2003 PULMON EMBOLISM/INFARCT(aka EMBOLISM) 07/21/2003 08/21/2009 documented as of this encounter (statuses as of 05/30/2022) [facility] History of Past illness Narrative* Problem Noted Date Resolved Date Screening for colon cancer 11/24/201607/12 Overview: Added automatically from request for surgery [id number] Pain in joint, lower leg 11/14/2008 010 MASS IN SUBCUTANEOUS TISSUE 07/21/200808/04 Non-healing surgical wound 03/16/200705/18 Other injury of other sites of trunk 01/16/2006 07/01/2007 ASA CLASS III 05/07/2005 07/12/2021 Other ventral hernia without mention of obstruction or gangrene 03/26/2004 07/01/2007 THROMBOPHLEBITIS NOS(aka DVT) 07/21/2003 PULMON EMBOLISM/INFARCT(aka EMBOLISM) 07/21/2003 08/21/2009 documented as of this encounter (statuses as of 06/04/2022) [facility] History of Past illness Narrative* Problem Noted Date Resolved Date Screening for colon cancer 11/24/201607/12 Overview: Added automatically from request for surgery [id number] Pain in joint, lower leg 11/14/2008 010 MASS IN SUBCUTANEOUS TISSUE 07/21/200808/04 Non-healing surgical wound 03/16/200705/18 Other injury of other sites of trunk 01/16/2006 07/01/2007 ASA CLASS III 05/07/2005 07/12/2021 Other ventral hernia without mention of obstruction or gangrene 03/26/2004 07/01/2007 THROMBOPHLEBITIS NOS(aka DVT) 07/21/2003 PULMON EMBOLISM/INFARCT(aka EMBOLISM) 07/21/2003 08/21/2009 documented as of this encounter (statuses as of 06/26/2022) [facility] History of Past illness Narrative* Problem Noted Date Resolved Date Screening for colon cancer 11/24/201607/12 Overview: Added automatically from request for surgery [id number] Pain in joint, lower leg 11/14/2008 010 MASS IN SUBCUTANEOUS TISSUE 07/21/200808/04 Non-healing surgical wound 03/16/200705/18 Other injury of other sites of trunk 01/16/2006 07/01/2007 ASA CLASS III 05/07/2005 07/12/2021 Other ventral hernia without mention of obstruction or gangrene 03/26/2004 07/01/2007 THROMBOPHLEBITIS NOS(aka DVT) 07/21/2003 PULMON EMBOLISM/INFARCT(aka EMBOLISM) 07/21/2003 08/21/2009 documented as of this encounter (statuses as of 06/27/2022) [facility] History of Past illness Narrative* Problem Noted Date Resolved Date Screening for colon cancer 11/24/201607/12 Overview: Added automatically from request for surgery [id number] Pain in joint, lower leg 11/14/2008 010 MASS IN SUBCUTANEOUS TISSUE 07/21/200808/04 Non-healing surgical wound 03/16/200705/18 Other injury of other sites of trunk 01/16/2006 07/01/2007 ASA CLASS III 05/07/2005 07/12/2021 Other ventral hernia without mention of obstruction or gangrene 03/26/2004 07/01/2007 THROMBOPHLEBITIS NOS(aka DVT) 07/21/2003 PULMON EMBOLISM/INFARCT(aka EMBOLISM) 07/21/2003 08/21/2009 documented as of this encounter (statuses as of 06/30/2022) [facility]-2017 History of Past illness Narrative* Problem Noted Date Resolved Date Screening for colon cancer 11/24/201607/12 Overview: Added automatically from request for surgery [id number] Pain in joint, lower leg 11/14/2008 010 MASS IN SUBCUTANEOUS TISSUE 07/21/200808/04 Non-healing surgical wound 03/16/200705/18 Other injury of other sites of trunk 01/16/2006 07/01/2007 ASA CLASS III 05/07/2005 07/12/2021 Other ventral hernia without mention of obstruction or gangrene 03/26/2004 07/01/2007 THROMBOPHLEBITIS NOS(aka DVT) 07/21/2003 PULMON EMBOLISM/INFARCT(aka EMBOLISM) 07/21/2003 08/21/2009 documented as of this encounter (statuses as of 07/01/2022) [facility] History of Past illness Narrative* Problem Noted Date Resolved Date Screening for colon cancer 11/24/201607/12 Overview: Added automatically from request for surgery [id number] Pain in joint, lower leg 11/14/2008 010 MASS IN SUBCUTANEOUS TISSUE 07/21/200808/04 Non-healing surgical wound 03/16/200705/18 Other injury of other sites of trunk 01/16/2006 07/01/2007 ASA CLASS III 05/07/2005 07/12/2021 Other ventral hernia without mention of obstruction or gangrene 03/26/2004 07/01/2007 THROMBOPHLEBITIS NOS(aka DVT) 07/21/2003 PULMON EMBOLISM/INFARCT(aka EMBOLISM) 07/21/2003 08/21/2009 documented as of this encounter (statuses as of 07/03/2022) [facility] History of Past illness Narrative* Problem Noted Date Resolved Date Screening for colon cancer 11/24/201607/12 Overview: Added automatically from request for surgery [id number] Pain in joint, lower leg 11/14/2008 010 MASS IN SUBCUTANEOUS TISSUE 07/21/200808/04 Non-healing surgical wound 03/16/200705/18 Other injury of other sites of trunk 01/16/2006 07/01/2007 ASA CLASS III 05/07/2005 07/12/2021 Other ventral hernia without mention of obstruction or gangrene 03/26/2004 07/01/2007 THROMBOPHLEBITIS NOS(aka DVT) 07/21/2003 PULMON EMBOLISM/INFARCT(aka EMBOLISM) 07/21/2003 08/21/2009 documented as of this encounter (statuses as of 07/14/2022) [facility] History of Past illness Narrative* Problem Noted Date Resolved Date Screening for colon cancer 11/24/201607/12 Overview: Added automatically from request for surgery [id number] Pain in joint, lower leg 11/14/2008 010 MASS IN SUBCUTANEOUS TISSUE 07/21/200808/04 Non-healing surgical wound 03/16/200705/18 Other injury of other sites of trunk 01/16/2006 07/01/2007 ASA CLASS III 05/07/2005 07/12/2021 Other ventral hernia without mention of obstruction or gangrene 03/26/2004 07/01/2007 THROMBOPHLEBITIS NOS(aka DVT) 07/21/2003 PULMON EMBOLISM/INFARCT(aka EMBOLISM) 07/21/2003 08/21/2009 documented as of this encounter (statuses as of 07/31/2022) [facility] History of Past illness Narrative* Problem Noted Date Resolved Date Screening for colon cancer 11/24/201607/12 Overview: Added automatically from request for surgery [id number] Pain in joint, lower leg 11/14/2008 010 MASS IN SUBCUTANEOUS TISSUE 07/21/200808/04 Non-healing surgical wound 03/16/200705/18 Other injury of other sites of trunk 01/16/2006 07/01/2007 ASA CLASS III 05/07/2005 07/12/2021 Other ventral hernia without mention of obstruction or gangrene 03/26/2004 07/01/2007 THROMBOPHLEBITIS NOS(aka DVT) 07/21/2003 PULMON EMBOLISM/INFARCT(aka EMBOLISM) 07/21/2003 08/21/2009 documented as of this encounter (statuses as of 08/05/2022) [facility] History of Past illness Narrative* Problem Noted Date Resolved Date Screening for colon cancer 11/24/201607/12 Overview: Added automatically from request for surgery [id number] Pain in joint, lower leg 11/14/2008 010 MASS IN SUBCUTANEOUS TISSUE 07/21/200808/04 Non-healing surgical wound 03/16/200705/18 Other injury of other sites of trunk 01/16/2006 07/01/2007 ASA CLASS III 05/07/2005 07/12/2021 Other ventral hernia without mention of obstruction or gangrene 03/26/2004 07/01/2007 THROMBOPHLEBITIS NOS(aka DVT) 07/21/2003 PULMON EMBOLISM/INFARCT(aka EMBOLISM) 07/21/2003 08/21/2009 documented as of this encounter (statuses as of 08/14/2022) [facility] History of Past illness Narrative* Problem Noted Date Resolved Date Screening for colon cancer 11/24/201607/12 Overview: Added automatically from request for surgery [id number] Pain in joint, lower leg 11/14/2008 010 MASS IN SUBCUTANEOUS TISSUE 07/21/200808/04 Non-healing surgical wound 03/16/200705/18 Other injury of other sites of trunk 01/16/2006 07/01/2007 ASA CLASS III 05/07/2005 07/12/2021 Other ventral hernia without mention of obstruction or gangrene 03/26/2004 07/01/2007 THROMBOPHLEBITIS NOS(aka DVT) 07/21/2003 PULMON EMBOLISM/INFARCT(aka EMBOLISM) 07/21/2003 08/21/2009 documented as of this encounter (statuses as of 10/02/2022) [facility] History of Past illness Narrative* Problem Noted Date Resolved Date Screening for colon cancer 11/24/201607/12 Overview: Added automatically from request for surgery [id number] Pain in joint, lower leg 11/14/2008 010 MASS IN SUBCUTANEOUS TISSUE 07/21/200808/04 Non-healing surgical wound 03/16/200705/18 Other injury of other sites of trunk 01/16/2006 07/01/2007 ASA CLASS III 05/07/2005 07/12/2021 Other ventral hernia without mention of obstruction or gangrene 03/26/2004 07/01/2007 THROMBOPHLEBITIS NOS(aka DVT) 07/21/2003 PULMON EMBOLISM/INFARCT(aka EMBOLISM) 07/21/2003 08/21/2009 documented as of this encounter (statuses as of 10/09/2022) [facility] History of Past illness Narrative* Problem Noted Date Diagnosed Date Resolved Date Screening for colon cancer 11/24/2016 0 07/12/2021 Overview: Added automatically from request for surgery [id number] Pain in joint, lower leg 11/14/2008 MASS IN SUBCUTANEOUS TISSUE 07/21/2008 08/18/2018 Non-healing surgical wound 03/16/2007 0 05/18/2009 Other injury of other sites of trunk 01/16/2006 07/01/2007 ASA CLASS III 05/07/2005 07/12/2021 Other ventral hernia without mention of obstruction or gangrene 03/26/2004 07/01/2007 THROMBOPHLEBITIS NOS(aka DVT) 07/21/2003 08/21/2009 PULMON EMBOLISM/INFARCT(aka EMBOLISM) 07/21/2003 08/21/2009 documented as of this encounter (statuses as of 10/16/2022) [facility] History of Past illness Narrative* Problem Noted Date Diagnosed Date Resolved Date Screening for colon cancer 11/24/2016 0 07/12/2021 Overview: Added automatically from request for surgery [id number] Pain in joint, lower leg 11/14/2008 MASS IN SUBCUTANEOUS TISSUE 07/21/2008 08/18/2018 Non-healing surgical wound 03/16/2007 0 05/18/2009 Other injury of other sites of trunk 01/16/2006 07/01/2007 ASA CLASS III 05/07/2005 07/12/2021 Other ventral hernia without mention of obstruction or gangrene 03/26/2004 07/01/2007 THROMBOPHLEBITIS NOS(aka DVT) 07/21/2003 08/21/2009 PULMON EMBOLISM/INFARCT(aka EMBOLISM) 07/21/2003 08/21/2009 documented as of this encounter (statuses as of 12/05/2022) [facility] History of Past illness Narrative* Problem Noted Date Diagnosed Date Resolved Date Screening for colon cancer 11/24/2016 0 07/12/2021 Overview: Added automatically from request for surgery [id number] Pain in joint, lower leg 11/14/2008 MASS IN SUBCUTANEOUS TISSUE 07/21/2008 08/18/2018 Non-healing surgical wound 03/16/2007 0 05/18/2009 Other injury of other sites of trunk 01/16/2006 07/01/2007 ASA CLASS III 05/07/2005 07/12/2021 Other ventral hernia without mention of obstruction or gangrene 03/26/2004 07/01/2007 THROMBOPHLEBITIS NOS(aka DVT) 07/21/2003 08/21/2009 PULMON EMBOLISM/INFARCT(aka EMBOLISM) 07/21/2003 08/21/2009 documented as of this encounter (statuses as of 12/22/2022) [facility] History of Past illness Narrative* Problem Noted Date Diagnosed Date Resolved Date Screening for colon cancer 11/24/2016 0 07/12/2021 Overview: Added automatically from request for surgery [id number] Pain in joint, lower leg 11/14/2008 MASS IN SUBCUTANEOUS TISSUE 07/21/2008 08/18/2018 Non-healing surgical wound 03/16/2007 0 05/18/2009 Other injury of other sites of trunk 01/16/2006 07/01/2007 ASA CLASS III 05/07/2005 07/12/2021 Other ventral hernia without mention of obstruction or gangrene 03/26/2004 07/01/2007 THROMBOPHLEBITIS NOS(aka DVT) 07/21/2003 08/21/2009 PULMON EMBOLISM/INFARCT(aka EMBOLISM) 07/21/2003 08/21/2009 documented as of this encounter (statuses as of 12/24/2022) [facility] History of Past illness Narrative* Problem Noted Date Diagnosed Date Resolved Date Screening for colon cancer 11/24/2016 0 07/12/2021 Overview: Added automatically from request for surgery [id number] Pain in joint, lower leg 11/14/2008 MASS IN SUBCUTANEOUS TISSUE 07/21/2008 08/18/2018 Non-healing surgical wound 03/16/2007 0 05/18/2009 Other injury of other sites of trunk 01/16/2006 07/01/2007 ASA CLASS III 05/07/2005 07/12/2021 Other ventral hernia without mention of obstruction or gangrene 03/26/2004 07/01/2007 THROMBOPHLEBITIS NOS(aka DVT) 07/21/2003 08/21/2009 PULMON EMBOLISM/INFARCT(aka EMBOLISM) 07/21/2003 08/21/2009 documented as of this encounter (statuses as of 01/15/2023) [facility] History of Past illness Narrative* Problem Noted Date Diagnosed Date Resolved Date Screening for colon cancer 11/24/2016 0 07/12/2021 Overview: Added automatically from request for surgery [id number] Pain in joint, lower leg 11/14/2008 MASS IN SUBCUTANEOUS TISSUE 07/21/2008 08/18/2018 Non-healing surgical wound 03/16/2007 0 05/18/2009 Other injury of other sites of trunk 01/16/2006 07/01/2007 ASA CLASS III 05/07/2005 07/12/2021 Other ventral hernia without mention of obstruction or gangrene 03/26/2004 07/01/2007 THROMBOPHLEBITIS NOS(aka DVT) 07/21/2003 08/21/2009 PULMON EMBOLISM/INFARCT(aka EMBOLISM) 07/21/2003 08/21/2009 documented as of this encounter (statuses as of 01/15/2023) [facility] History of Past illness Narrative* Problem Noted Date Diagnosed Date Resolved Date Screening for colon cancer 11/24/2016 0 07/12/2021 Overview: Added automatically from request for surgery [id number] Pain in joint, lower leg 11/14/2008 MASS IN SUBCUTANEOUS TISSUE 07/21/2008 08/18/2018 Non-healing surgical wound 03/16/2007 0 05/18/2009 Other injury of other sites of trunk 01/16/2006 07/01/2007 ASA CLASS III 05/07/2005 07/12/2021 Other ventral hernia without mention of obstruction or gangrene 03/26/2004 07/01/2007 THROMBOPHLEBITIS NOS(aka DVT) 07/21/2003 08/21/2009 PULMON EMBOLISM/INFARCT(aka EMBOLISM) 07/21/2003 08/21/2009 documented as of this encounter (statuses as of 02/08/2023) [facility] History of Past illness Narrative* Problem Noted Date Diagnosed Date Resolved Date Screening for colon cancer 11/24/2016 0 07/12/2021 Overview: Added automatically from request for surgery [id number] Pain in joint, lower leg 11/14/2008 MASS IN SUBCUTANEOUS TISSUE 07/21/2008 08/18/2018 Non-healing surgical wound 03/16/2007 0 05/18/2009 Other injury of other sites of trunk 01/16/2006 07/01/2007 ASA CLASS III 05/07/2005 07/12/2021 Other ventral hernia without mention of obstruction or gangrene 03/26/2004 07/01/2007 THROMBOPHLEBITIS NOS(aka DVT) 07/21/2003 08/21/2009 PULMON EMBOLISM/INFARCT(aka EMBOLISM) 07/21/2003 08/21/2009 documented as of this encounter (statuses as of 02/08/2023) [facility] History of Past illness Narrative* Problem Noted Date Diagnosed Date Resolved Date Screening for colon cancer 11/24/2016 0 07/12/2021 Overview: Added automatically from request for surgery [id number] Pain in joint, lower leg 11/14/2008 MASS IN SUBCUTANEOUS TISSUE 07/21/2008 08/18/2018 Non-healing surgical wound 03/16/2007 0 05/18/2009 Other injury of other sites of trunk 01/16/2006 07/01/2007 ASA CLASS III 05/07/2005 07/12/2021 Other ventral hernia without mention of obstruction or gangrene 03/26/2004 07/01/2007 THROMBOPHLEBITIS NOS(aka DVT) 07/21/2003 08/21/2009 PULMON EMBOLISM/INFARCT(aka EMBOLISM) 07/21/2003 08/21/2009 documented as of this encounter (statuses as of 02/08/2023) [facility] History of Past illness Narrative* Problem Noted Date Diagnosed Date Resolved Date Screening for colon cancer 11/24/2016 0 07/12/2021 Overview: Added automatically from request for surgery [id number] Pain in joint, lower leg 11/14/2008 MASS IN SUBCUTANEOUS TISSUE 07/21/2008 08/18/2018 Non-healing surgical wound 03/16/2007 0 05/18/2009 Other injury of other sites of trunk 01/16/2006 07/01/2007 ASA CLASS III 05/07/2005 07/12/2021 Other ventral hernia without mention of obstruction or gangrene 03/26/2004 07/01/2007 THROMBOPHLEBITIS NOS(aka DVT) 07/21/2003 08/21/2009 PULMON EMBOLISM/INFARCT(aka EMBOLISM) 07/21/2003 08/21/2009 documented as of this encounter (statuses as of 02/08/2023) [facility] History of Past illness Narrative* Problem Noted Date Diagnosed Date Resolved Date Screening for colon cancer 11/24/2016 0 07/12/2021 Overview: Added automatically from request for surgery [id number] Pain in joint, lower leg 11/14/2008 MASS IN SUBCUTANEOUS TISSUE 07/21/2008 08/18/2018 Non-healing surgical wound 03/16/2007 0 05/18/2009 Other injury of other sites of trunk 01/16/2006 07/01/2007 ASA CLASS III 05/07/2005 07/12/2021 Other ventral hernia without mention of obstruction or gangrene 03/26/2004 07/01/2007 THROMBOPHLEBITIS NOS(aka DVT) 07/21/2003 08/21/2009 PULMON EMBOLISM/INFARCT(aka EMBOLISM) 07/21/2003 08/21/2009 documented as of this encounter (statuses as of 02/16/2023) [facility] History of Past illness Narrative* Problem Noted Date Diagnosed Date Resolved Date Screening for colon cancer 11/24/2016 0 07/12/2021 Overview: Added automatically from request for surgery [id number] Pain in joint, lower leg 11/14/2008 MASS IN SUBCUTANEOUS TISSUE 07/21/2008 08/18/2018 Non-healing surgical wound 03/16/2007 0 05/18/2009 Other injury of other sites of trunk 01/16/2006 07/01/2007 ASA CLASS III 05/07/2005 07/12/2021 Other ventral hernia without mention of obstruction or gangrene 03/26/2004 07/01/2007 THROMBOPHLEBITIS NOS(aka DVT) 07/21/2003 08/21/2009 PULMON EMBOLISM/INFARCT(aka EMBOLISM) 07/21/2003 08/21/2009 documented as of this encounter (statuses as of 03/03/2023) [facility] History of Past illness Narrative* Problem Noted Date Diagnosed Date Resolved Date Screening for colon cancer 11/24/2016 0 07/12/2021 Overview: Added automatically from request for surgery [id number] Pain in joint, lower leg 11/14/2008 MASS IN SUBCUTANEOUS TISSUE 07/21/2008 08/18/2018 Non-healing surgical wound 03/16/2007 0 05/18/2009 Other injury of other sites of trunk 01/16/2006 07/01/2007 ASA CLASS III 05/07/2005 07/12/2021 Other ventral hernia without mention of obstruction or gangrene 03/26/2004 07/01/2007 THROMBOPHLEBITIS NOS(aka DVT) 07/21/2003 08/21/2009 PULMON EMBOLISM/INFARCT(aka EMBOLISM) 07/21/2003 08/21/2009 documented as of this encounter (statuses as of 05/18/2023) [facility] History of Past illness Narrative* Problem Noted Date Diagnosed Date Resolved Date Screening for colon cancer 11/24/2016 0 07/12/2021 Overview: Added automatically from request for surgery [id number] Pain in joint, lower leg 11/14/2008 MASS IN SUBCUTANEOUS TISSUE 07/21/2008 08/18/2018 Non-healing surgical wound 03/16/2007 0 05/18/2009 Other injury of other sites of trunk 01/16/2006 07/01/2007 ASA CLASS III 05/07/2005 07/12/2021 Other ventral hernia without mention of obstruction or gangrene 03/26/2004 07/01/2007 THROMBOPHLEBITIS NOS(aka DVT) 07/21/2003 08/21/2009 PULMON EMBOLISM/INFARCT(aka EMBOLISM) 07/21/2003 08/21/2009 documented as of this encounter (statuses as of 05/20/2023) [facility] of Past illness Narrative* Problem Noted Date Diagnosed Date Resolved Date Screening for colon cancer 11/24/2016 0 07/12/2021 Overview: Added automatically from request for surgery [id number] Pain in joint, lower leg 11/14/2008 MASS IN SUBCUTANEOUS TISSUE 07/21/2008 08/18/2018 Non-healing surgical wound 03/16/2007 0 05/18/2009 Other injury of other sites of trunk 01/16/2006 07/01/2007 ASA CLASS III 05/07/2005 07/12/2021 Other ventral hernia without mention of obstruction or gangrene 03/26/2004 07/01/2007 THROMBOPHLEBITIS NOS(aka DVT) 07/21/2003 08/21/2009 PULMON EMBOLISM/INFARCT(aka EMBOLISM) 07/21/2003 08/21/2009 documented as of this encounter (statuses as of 06/02/2023) [facility] of Past illness Narrative* Problem Noted Date Diagnosed Date Resolved Date Screening for colon cancer 11/24/2016 0 07/12/2021 Overview: Added automatically from request for surgery [id number] Pain in joint, lower leg 11/14/2008 MASS IN SUBCUTANEOUS TISSUE 07/21/2008 08/18/2018 Non-healing surgical wound 03/16/2007 0 05/18/2009 Other injury of other sites of trunk 01/16/2006 07/01/2007 ASA CLASS III 05/07/2005 07/12/2021 Other ventral hernia without mention of obstruction or gangrene 03/26/2004 07/01/2007 THROMBOPHLEBITIS NOS(aka DVT) 07/21/2003 08/21/2009 PULMON EMBOLISM/INFARCT(aka EMBOLISM) 07/21/2003 08/21/2009 documented as of this encounter (statuses as of 06/04/2023) [facility] of Past illness Narrative* Problem Noted Date Diagnosed Date Resolved Date Screening for colon cancer 11/24/2016 0 07/12/2021 Overview: Added automatically from request for surgery [id number] Pain in joint, lower leg 11/14/2008 MASS IN SUBCUTANEOUS TISSUE 07/21/2008 08/18/2018 Non-healing surgical wound 03/16/2007 0 05/18/2009 Other injury of other sites of trunk 01/16/2006 07/01/2007 ASA CLASS III 05/07/2005 07/12/2021 Other ventral hernia without mention of obstruction or gangrene 03/26/2004 07/01/2007 THROMBOPHLEBITIS NOS(aka DVT) 07/21/2003 08/21/2009 PULMON EMBOLISM/INFARCT(aka EMBOLISM) 07/21/2003 08/21/2009 documented as of this encounter (statuses as of 06/17/2023) [facility] of Past illness Narrative* Problem Noted Date Diagnosed Date Resolved Date Screening for colon cancer 11/24/2016 0 07/12/2021 Overview: Added automatically from request for surgery [id number] Pain in joint, lower leg 11/14/2008 MASS IN SUBCUTANEOUS TISSUE 07/21/2008 08/18/2018 Non-healing surgical wound 03/16/2007 0 05/18/2009 Other injury of other sites of trunk 01/16/2006 07/01/2007 ASA CLASS III 05/07/2005 07/12/2021 Other ventral hernia without mention of obstruction or gangrene 03/26/2004 07/01/2007 THROMBOPHLEBITIS NOS(aka DVT) 07/21/2003 08/21/2009 PULMON EMBOLISM/INFARCT(aka EMBOLISM) 07/21/2003 08/21/2009 documented as of this encounter (statuses as of 06/22/2023) [facility] of Past illness Narrative* Problem Noted Date Diagnosed Date Resolved Date Screening for colon cancer 11/24/2016 0 07/12/2021 Overview: Added automatically from request for surgery [id number] Pain in joint, lower leg 11/14/2008 MASS IN SUBCUTANEOUS TISSUE 07/21/2008 08/18/2018 Non-healing surgical wound 03/16/2007 0 05/18/2009 Other injury of other sites of trunk 01/16/2006 07/01/2007 ASA CLASS III 05/07/2005 07/12/2021 Other ventral hernia without mention of obstruction or gangrene 03/26/2004 07/01/2007 THROMBOPHLEBITIS NOS(aka DVT) 07/21/2003 08/21/2009 PULMON EMBOLISM/INFARCT(aka EMBOLISM) 07/21/2003 08/21/2009 documented as of this encounter (statuses as of 06/29/2023) [facility] of Past illness Narrative* Problem Noted Date Diagnosed Date Resolved Date Screening for colon cancer 11/24/2016 0 07/12/2021 Overview: Added automatically from request for surgery [id number] Pain in joint, lower leg 11/14/2008 MASS IN SUBCUTANEOUS TISSUE 07/21/2008 08/18/2018 Non-healing surgical wound 03/16/2007 0 05/18/2009 Other injury of other sites of trunk 01/16/2006 07/01/2007 ASA CLASS III 05/07/2005 07/12/2021 Other ventral hernia without mention of obstruction or gangrene 03/26/2004 07/01/2007 THROMBOPHLEBITIS NOS(aka DVT) 07/21/2003 08/21/2009 PULMON EMBOLISM/INFARCT(aka EMBOLISM) 07/21/2003 08/21/2009 documented as of this encounter (statuses as of 07/15/2023) [facility] of Past illness Narrative* Problem Noted Date Diagnosed Date Resolved Date Screening for colon cancer 11/24/2016 0 07/12/2021 Overview: Added automatically from request for surgery [id number] Pain in joint, lower leg 11/14/2008 MASS IN SUBCUTANEOUS TISSUE 07/21/2008 08/18/2018 Non-healing surgical wound 03/16/2007 0 05/18/2009 Other injury of other sites of trunk 01/16/2006 07/01/2007 ASA CLASS III 05/07/2005 07/12/2021 Other ventral hernia without mention of obstruction or gangrene 03/26/2004 07/01/2007 THROMBOPHLEBITIS NOS(aka DVT) 07/21/2003 08/21/2009 PULMON EMBOLISM/INFARCT(aka EMBOLISM) 07/21/2003 08/21/2009 documented as of this encounter (statuses as of 07/23/2023) [facility] Note Date/Time September 06, 2024 9:49a m [facility] Medical Records Department [address] [place] [address] Anesthesia Postop Eval I 09/06/24 0948 MR#: [id number] Acct: [id number] Name: MARI LOPEZ Rep #:[id number] : 1940 84 From: Mono PENG PCP: BROOKLYN Aguillon Status:REG S DC Y Race: C Location: [place] [address] Anesthesia: Postop Eval I Current Vital Signs [...] Anesthesia document: Postop Eval 1 completed: Yes 09/06/2449 <Electronically signed by Mono Lemon CRNA> Date _ Mono Lemon CRNA Cosigner Signature: Date CC: ~ Signed [facility] Work Phone: Discharge summary Author Jc Mireles [facility] Note Date/Time October 26, 2024 11:1 6am [facility] Medical Records Department [address] [place] [id number] Emergency Department Summary 10/26/24 MR#: [id number] Acct: [id number] Name: MARI LOPEZ Rep #:[id number] : 1940 84 From: Jc brown DO [...] intact Psych: Cooperative, appropriate mood and affect PFSH PFSH Medical History VRE (vancomycin resistant enterococcus) [...] [place], [place], [place] until fully. Print Language: Uzbek Disposition Disposition: Home, Self Care What to do if you have Problems For any increased pain, shortness of breath, bleeding, nausea or vomiting, chestpain, or any unexpected problems, contact your Primary Care Provider. Call [facility] ([phone]) or report to the closest Emergency Room. Call 911 if necessary. 10/26/24 1116 <Electronically signed by Jc Mireles DO> Cosigner Signature (if applicable): CC: Dr. Lizy Capone MD ~ Signed [facility] Work Phone: Discharge summary Author Anthony Andes [facility] Note Date/Time October 29, 2024 6:02 am [facility] Medical Records Department [address] [place] [address] Emergency Department Summary 10/29/24 MR#: [id number] Acct: [id number] Name: MARI LOPEZ Rep #:[id number] : 1940 84 From: Anthony Taylor DO PCP: Dr. Lizy Capone MD Status:AD M IN Location: [address] History of Present Illness Chief Complaint: Weakness Informant: patient and friend Narrative Narrative: Patient is an 84-year-old female with past medical history of chronic anemia hypertension hypothyroidism hyperlipidemia and chronic atrial fibrillation currently on Eliquis. She states that she has had generalized weakness for the past2 to 3 days. The patient has a home health aide and a friend to help take care of her and they confirmed that over the last 2 days she has not been able to getup and that she simply been laying in bed. The patient states she is unable to care for herself and is seeking treatment for potential placement in [facility]. She states she still been taking her medications as directed but because of the generalized weakness keeping her from being able to ambulate and care forherself she was brought in for evaluation [facility] Medical History VRE (vancomycin resistant enterococcus) [...] 06/27/22 Unknown Rx tablet pain #30 tabs atorvastatin 40 mg tablet 40 mg PO [...] 1 tab PO DAILY Supplement 09/28/24 History Arthritis Pain Compound 3 click [...] (vitamin D3) 25 50 mcg PO DAILY Unknown History mcg (1,000 unit) tablet doxycycline hyclate 100 mg capsule 100 mg PO BID 5 day s #10 caps 10/26/24 Unknown Rx fluoride (sodium) 1.1 % dental 1 applic PO Q24H Unknown History cream (Denta 5000 Plus) gabapentin 300 mg capsule 300 mg PO TID 10/26/24 Unkno wn History lacosamide 100 mg tablet 100 mg PO Q12H 10/26/24 Unkn own History nystatin 100,000 unit/gram topical topical 10/26/24 Un known History powder (Klayesta) vibegron 75 mg tablet (Gemtesa) 75 mg PO DAILY 5 Unknown History polyethylene glycol 3350 17 17 g PO DAILY 10/29/24 Unk nown History gram/dose oral powder (Miralax) Allergy/AdvReac Type Severity Reaction Status Date / Time cefazolin (From Kefzol) Allergy Severe hives/difficulty Verified 10/29/24 03:39 swallowing ibuprofen Allergy Unknown Rash Verified 10/29/24 03:39 peanut Allergy Anaphylaxis Verified 10/29/24 03:39 Sulfa (Sulfonamide Allergy Unknown Verified 10/29/24 03:39 Antibiotics) sulfamethoxazole (From Allergy Other Verified 10/29/24 03:39 Bactrim) trimethoprim (From Bactrim) Allergy Other Verified 10/29/24 03:39 Family History Mother Cancer uterine Father No [...] ROS ROS ED Constitutional Constitutional ED: Denies chills or fever(s) Eyes Eyes: Denies change in vision ENT ENT ED: Denies sore throat Cardiovascular Cardiovascular: Reports palpitations and racing heartbeat; Denies chest pain Respiratory/Chest Respiratory/Chest: Denies cough or dyspnea Gastrointestinal Gastrointestinal: Denies abdominal pain, diarrhea, nausea or vomiting Genitourinary Genitourinary ED: Reports dysuria Musculoskeletal Musculoskeletal: Denies myalgias Integumentary Reports other; Denies rash Neurologic Neurologic: Reports weakness; Denies headache(s) Hematologic/Lymphatic Hematologic/Lymphatic: Reports easy bleeding and easy bruising EXAM Physical Exam Const Vital Signs: 10/29/24 03:40 10/29/24 03:40 10/29/24 05:09 Temperature 97.5 F L 97.8 F Temperature Source Oral Pulse Rate 124 H 108 H Respiratory Rate 18 18 Respiratory Effort Normal Non-Labored Respiratory Pattern Normal Blood Pressure 102/86 H 98/82 H Blood Pressure Mean 91 87 Pulse Ox 100 96 Oxygen Delivery Method Room Air 10/29/24 05:11 Temperature Temperature Source Pulse Rate 108 H Respiratory Rate 18 Respiratory Effort Respiratory Pattern Blood Pressure 98/82 H Blood Pressure Mean 87 Pulse Ox 96 Oxygen Delivery Method Room Air Positive well nourished, well developed and obese General Appearance ED: well developed Nutritional Appearance: obese HEENT HEENT Narrative: Normocephalic atraumatic No tongue or lip swelling no oral lesions no airway edema or compromise Eyes PERRL and EOMs intact bilaterally General Eye ED: Negative for scleral icterus Neck supple Neck Narrative: No nuchal rigidity or meningeal signs Chest Wall palpation of chest normal Resp normal respiratory effort and clear to auscultation bilaterally Resp Narrative: Breath sounds are diminished throughout but overall clear to auscultation without nasal flaring retractions tachypnea or accessory muscle use Cardio Rate: other Other Details: Irregularly irregular rhythm with slightly tachycardic rate consistent with history of chronic atrial fibrillation GI normal to inspection, nondistended, normoactive bowel sounds, non-tender, non-distended and no masses GI Narrative: No voluntary guarding or rigidity or pulsatile mass Auscultation: normoactive bowel sounds Palpation: soft Extremity Extremity Narrative: Patient has diffuse swelling to the bilateral lower legs consistent with historyof lymphedema No obvious bony deformity or joint effusion All compartments are soft and compressible going against compartment syndrome Neuro oriented x3, CN's II-XII intact bilaterally and no sensory deficits noted Sensorium / Orientation: alert Psych mental status grossly normal Skin Skin Narrative: Patient has a recent laceration to her right lower leg that is clean dry and intact without findings concerning for cellulitis. There is an abrasion to the lateral aspect of the left leg without findings of secondary infection Patient has changes to the right upper thigh consistent with recent skin graft also without findings of secondary infection MDM MDM MDM Narrative Medical decision making narrative: Patient arrived to the ER in atrial fibrillation but has a history of this and is on Eliquis. She reported generalized weakness over the last 2 days keeping her from ambulating and the inability perform her activities of daily living. The patient is requesting potential placement in a [facility] as she is not able to care for herself at this time. Secondary to this basic blood work was obtained to check for worsening anemia kidney disease urinary tract infection orpneumonia. Blood work showed hemoglobin of 9.4 which is near baseline. Her creatinine is 3.16 which is slightly above her baseline. Urine sample showed nosign of acute infection and chest x-ray revealed no acute lung pathology such aspneumonia. Patient also has multiple wounds but they are not showing findings of systemic infection/cellulitis. Therefore at this time patient has chronic lab abnormalities but they are near her baseline without obvious secondary infection. However because of her generalized weakness and inability to ambulate I do not feel she is safe for home. I do feel she would benefit from PT OT evaluation and mcfp placement. Secondary to this I discussed the case with the hospitalist. He evaluated the patient in the ER and does agree toaccept the patient for further care. History & Record Review Discussion w/independent historian: Patient and Friend Lab Data Attestation: I reviewed the patient's lab results. Labs: Laboratory Results - last 24 hr 10/29/24 10/29/24 03:51 04:14 WBC 5.8 RBC 2.94 L Hgb 9.4 L Hct 31.4 L MCV 106.8 H MCH 32.0 MCHC 29.9 L RDW Std Deviation 57.2 H RDW Coeff of Parris 15.0 H Plt Count 212 MPV 13.6 H Immature Gran % (Auto) 0.200 Neut % (Auto) 53.2 Lymph % (Auto) 30.1 [place] % (Auto) 9.8 Eos % (Auto) 6.0 H Baso % (Auto) 0.7 Absolute Neuts (auto) 3.1 Absolute Lymphs (auto) 1.74 Nucleated RBC % 0 Sodium 142 Potassium 4.4 Chloride 106 Carbon Dioxide 23.5 Anion Gap 13 BUN 67 H Creatinine 3.16 H Estim Creat Clear Calc 15.60 L Est GFR (MDRD) Non-Af 14 L BUN/Creatinine Ratio 21.3 H Glucose 98 Calcium 8.3 Magnesium 2.3 H TSH 4.310 H Urine Color Straw Urine Clarity Clear Urine pH 6.0 Ur Specific [place] 1.010 Urine Protein 15 H Urine Glucose (UA) Normal Urine Ketones Negative Urine Occult Blood Negative Urine Nitrite Negative Urine Bilirubin Negative Urine Urobilinogen Normal Ur Leukocyte Esterase 25 H Urine RBC 0 SEEN Urine WBC 5-10 SEEN Ur Squamous Epith Cells 0-5 SEEN Urine Bacteria 0 SEEN Urine Mucus 0 SEEN Radiography Diagnostic Testing: Clinical Impression(s) from Imaging Studies Chest X-Ray 10/29/24 04:20 IMPRESSION: No definite acute chest findings. Possible very mild central interstitial edema. Advise correlation. Reading Location: [place] [address] Chest x-ray as interpreted by the emergency medicine physician reveals findings consistent with mild vascular congestion but no acute infiltrate pleural effusion or pneumothorax Management Discussion w/another healthcare provider: Hospitalist Discharge Plan Triage Chief Complaint: Weakness ED Provider: Anthony Taylor Dx/Rx/DC Orders Clinical Impression: Generalized weakness, Chronic atrial fibrillation, Current use of long term care phlebotomist anticoagulation, Lymphedema, Hypothyroidism, Inability to walk, Chronic kidney disease, Anemia Prescriptions: No Action Mirena 20 mcg/24 hours (7 yrs) 52 mg intrauterine device 1 mcg intrauterine ONCE nitroglycerin 0.4 mg tablet, sublingual 0.4 mg sublingual Q5M PRN (Reason: chest pain) Qty: 30 1RF Rx Instructions: do not exceed 3 doses per episode carvedilol 6.25 mg tablet 6.25 mg PO BID multivitamin Tablet 1 tab PO DAILY Arthritis Pain Compound 3 click [...] (sodium) [Denta 5000 Plus] 1.1 % cream 1 applic PO Q24H cholecalciferol (vitamin D3) 25 mcg (1,000 unit) tablet 50 mcg PO DAILY lacosamide 100 mg tablet 100 mg PO Q12H Gemtesa 75 mg tablet 75 mg PO DAILY doxycycline hyclate 100 mg capsule 100 mg PO BID 5 Days Qty: 10 0RF polyethylene glycol 3350 [Miralax] 17 gram/dose powder 17 g PO DAILY atorvastatin 40 mg tablet 40 mg PO [...] 0RF Primary Care Provider: Lizy Capone Referrals: Lizy Capone MD [Primary Care Provider] - Print Language: Uzbek Disposition Disposition: Acute Care Hospital [facility] What to do if you have Problems For any increased pain, shortness of breath, bleeding, nausea or vomiting, chestpain, or any unexpected problems, contact your Primary Care Provider. Call [facility] ([phone]) or report to the closest Emergency Room. Call 911 if necessary. 10/29/24 0602 <Electronically signed by Anthony Taylor DO> Cosigner Signature (if applicable): CC: Dr. Lizy Capone MD ~ Signed [facility] Work Phone: Discharge summary Author Donell Ferrara [facility] Note Date/Time November 01, 2024 11:0 7am [facility] Medical Records Department [address] [place] [address] Discharge Summary 11/01/24 1057 MR#: [id number] Acct: [id number] Name: MARI LOPEZ Rep #:[id number] : 1940 84 From: Donell rubin MD PCP: Dr. Lizy Capone MD Status:AD M IN [facility] Providers Date of Admission: 10/29/24 Primary Care Physician: Dr. Lizy Capone MD Consultations 10/29/24 06:48 Consult: Onc/Wound/story writer Routine Comment: Reason For Visit: CHF EXACERBATION, DEBILITY Diagnosis Discharge Diagnosis (1) (HFpEF) heart failure with preserved ejection fraction: Status: Acute Code(s): I50.30 - Unspecified diastolic (congestive) heart failure (2) Open leg wound: Status: Acute Code(s): S81.809A - Unspecified open wound, unspecified lower leg, initial encounter (3) Debility: Status: Acute Code(s): R53.81 - Other malaise (4) Tremulousness: Status: Resolved Code(s): R25.1 - Tremor, unspecified Medications at Discharge Home Medications levonorgestrel (Mirena) 1 mcg intrauterine ONCE . 07/25/21 nitroglycerin 0.4 mg sublingual tablet 0.4 mg sublingual Q5M PRN chest pain #30 tabs 06/27/22 atorvastatin 40 mg tablet 40 mg PO QHS cholesterol 05/18/24 levothyroxine 125 mcg tablet 125 mcg PO DAILY thyroid 05/18/24 calcium acetate(phosphat bind) 667 mg capsule 667 mg PO TIDCM supplement #1 cap 06/09/24 sennosides 8.6 mg-docusate sodium 50 mg tablet (Stimulant Laxative Plus) 2 tab PO BID constipation #1 TAB 06/09/24 carvedilol 6.25 mg tablet 6.25 mg PO BID Blood pressure 09/28/24 multivitamin 1 tab PO DAILY Supplement 09/28/24 Arthritis Pain Compound 3 click topical BID 30 days #60 GMS 10/17/24 acetaminophen 500 mg tablet 1,000 mg (2 x 500 mg) PO TID #0 tabs 10/17/24 ferrous sulfate 325 mg (65 [...] PO 2200 30 days #15 tabs 10/17/24 sodium bicarbonate 650 mg tablet 650 mg PO 4X/DAY 30 days #120 tabs 10/17/24 apixaban 2.5 mg tablet (Eliquis) 2.5 mg PO BID 30 days #60 tabs 10/18/24 cholecalciferol (vitamin D3) 25 mcg (1,000 unit) tablet 50 mcg PO DAILY 10/26/24 doxycycline hyclate 100 mg capsule 100 mg PO BID 5 days #10 caps 10/26/24 fluoride (sodium) 1.1 % dental cream (Denta 5000 Plus) 1 applic PO Q24H 10/26/24 lacosamide 100 mg tablet 100 mg PO Q12H 10/26/24 nystatin 100,000 unit/gram topical powder (Klayesta) topical 10/26/24 vibegron 75 mg tablet (Gemtesa) 75 mg PO DAILY 10/26/24 polyethylene glycol 3350 17 gram/dose oral powder (Miralax) 17 g PO DAILY 10/29/24 Hospital Course Operations None Procedures None Summary of Care Provided Minutes Spent on Discharge: 36 Hospital Course: Per HPI: MARI LOPEZ, is a 84 F who presents with weakness. Patient was admitted earlier this month discharged to transitional care unit where she was and was able to walk out on her own accord. Had been doing well but has progressively gotten weaker at home and over the past 2 days was essentially bedbound. Patient was reluctant but finally agreed to going to a [facility] facility and they were attempting to do so from home but with her being bedridden for 2 days was not feasible so patient was sent to the emergency room. In the emergency room, patient's creatinine was noted to be 3.16 chest x-ray was concerning for pulmonary vascular congestion. Heart rate did get up and she didreceive a dose of her carvedilol. Patient has lower extremity wounds that have opened up and noted that her legs are seeping fluid. She states that her weighthas gone up roughly 10 pounds. She says that she has not had a bowel movement in 6 days. Hospital Course: 1. Debility and inability to complete ADLs?84-year-old female presented to hospital after she was home from the transitional care unit where she initially was doing well but then was getting weaker at home and ended up being bedbound so family had been trying to get her into a m[facility] on their own but she became too weak and was brought to the hospital. There is some concern for possible heart failure exacerbation so she was started on Lasix however she never required any oxygen. She worked with PT and OT who recommended placement. She was found to be excepted at [facility] and I discussed with her the possibility for discharge today and she expressed understanding of the risks andbenefits of going to the mcfp and would like to go today. 2. Acute on chronic diastolic CHF/essential HTN/HLD/paroxysmal A-fib?she did not have a significant heart failure exacerbation as she never required any oxygen however she was placed on twice daily Lasix IV 40 mg which she tolerated pretty well, her renal function is CKD 4 but at baseline with a creatinine of 3.04 on the day of discharge. 3. Bilateral leg wounds?she has been seeing at the wound care and had been given 5 days of doxycycline on 10/26/2024 which she completed and will not need on discharge. 4. Hypothyroidism, chronic pain, CKD 4 all chronic medical conditions which complicate her care. Her home medications were continued where appropriate. Given her renal failure and her CKD 4 I did discontinue her gabapentin. Physical Exam Narrative General: Alert, Oriented x3, Cooperative, No apparent distress HEENT: Atraumatic, PERRLA, EOMI, Normocephalic Oral: Moist Mucosa Neck: Supple, No JVD Lungs: Diminished, Normal air movement, No rhonchi, No wheeze, No rales Cardiovascular: Regular rate, Regular Rhythm, Normal S1, Normal S2, No murmurs Abdomen: Soft, Non Tender, Non-Distended, No Hepato-splenomegaly Extremities: Edema, Capillary Refill Less than 3 Seconds Skin: Bilateral leg wounds currently dressed Musculoskeletal: No Tenderness to Palpation of Joints or Extremities Neurological: No focal neurological deficits, moves all extremities Psych/Mental Status: Normal affect, tired Weight / BMI Weight Weight: 265 lb 3.457 oz Body Mass Index (BMI) 48.4 ABG / Lab / Microbiology Data 10/31/24 05:47 11/01/24 06:20 Laboratory: Laboratory Results - last 24 hr 11/01/24 06:20: Sodium 142, Potassium 4.3, Chloride 105, Carbon Dioxide 22.5, Anion Gap 14, BUN 66 H, Creatinine 3.04 H, Estim Creat Clear Calc 17.61 L, Est GFR (MDRD) Non-Af 15 L, BUN/Creatinine Ratio 21.6 H, Glucose 82, Calcium 8.3 D/C Instructions DC O2, CPAP, BIPAP Needs Home O2 Discharge instructions: No Meaningful Use Info Meaningful Use Meaningful Use Diagnoses (Choose all that apply): None applicable Discharge Plan Admission Admit Date/Time: 10/29/24 05:34 Attending Provider: Donell Ferrara Primary Care Provider: Lizy Capone Consulting Providers: Russell Todd Discharge Orders/Prescriptions Prescriptions: Continued Mirena 20 mcg/24 hours (7 yrs) 52 mg intrauterine device 1 mcg intrauterine ONCE nitroglycerin 0.4 mg tablet, sublingual 0.4 mg sublingual Q5M PRN (Reason: chest pain) Qty: 30 1RF Rx Instructions: do not exceed 3 doses per episode carvedilol 6.25 mg tablet 6.25 mg PO BID multivitamin Tablet 1 tab PO DAILY Arthritis Pain Compound 3 click [...] PO 2200 30 Days Qty: 15 0RF Eliquis 2.5 mg tablet 2.5 mg PO BID 30 Days Qty: 60 0RF nystatin [Klayesta] 100,000 unit/gram powder topical fluoride (sodium) [Denta 5000 Plus] 1.1 % cream 1 applic PO Q24H cholecalciferol (vitamin D3) 25 mcg (1,000 unit) tablet 50 mcg PO DAILY lacosamide 100 mg tablet 100 mg PO Q12H Gemtesa 75 mg tablet 75 mg PO DAILY doxycycline hyclate 100 mg capsule 100 mg PO BID 5 Days Qty: 10 0RF polyethylene glycol 3350 [Miralax] 17 gram/dose powder 17 g PO DAILY atorvastatin 40 mg tablet 40 mg PO QHS levothyroxine 125 mcg tablet 125 mcg PO DAILY Patient Comments: TAKE 1 TABLET BY MOUTH ONCE DAILY. TAKE ON EMPTY STOMACH. FOR THYROID. calcium acetate(phosphat bind) 667 mg Capsule 667 mg PO TIDCM Qty: 1 0RF sennosides-docusate sodium [Stimulant Laxative Plus] 8.6-50 mg Tablet 2 tab PO BID Qty: 1 0RF Discontinued oxycodone 5 mg Tablet 5 mg PO Q4H PRN PRN (Reason: Pain Score 1-10 Or Pre Pt/Ot) 7 Days Qty: 42 0RF gabapentin 300 mg capsule 300 mg PO TID Referrals / Follow Up: Wound Health [Outside] Lizy Capone MD [Primary Care Provider] - Disposition Disposition (needs filled in before D/C Order can be placed): Shelter Facility Charges/Coding Visit Charges Inpatient E&M: 16257 Disch Hosp >30min 11/01/24 1107 <Electronically signed by Donell Ferrara MD> Cosigner Signature (if applicable): CC: Dr. Lizy Capone MD; Dr. Donell Ferrara MD~ Signed [facility] Work Phone: Evaluation note* Diagnosis BENIGN HYPERTENSION(aka [...] Chest pain, unspecified [facility] Diagnosis Left upper quadrant abdominal pain documented in this encounter [facility] note* Diagnosis Left upper quadrant abdominal pain [facility]* Diagnosis Insomnia, unspecified type documented in this encounter [facility] note* Diagnosis Rib pain on left side- Primary Chest pain, unspecified [facility]* Diagnosis Onset Date Resolution Status Dyspnea on minimal exertion acute Essential (primary) hypertension chronic [facility] Work Phone: Evaluation note* Diagnosis Lumbar spondylosis- Primary Lumbosacral spondylosis without myelopathy Other chronic pain Thoracic spine pain Pain in thoracic spine Myofascial pain Mylagia and myositis, unspecified [facility]* Diagnosis Lumbar spondylosis Lumbosacral spondylosis without myelopathy Thoracic spine pain Pain in thoracic spine documented [facility]* Diagnosis Rib pain Chest pain, unspecified documented [facility]* Diagnosis Chronic midline low back pain with sciatica, sciatica laterality unspecified- Primary documented [facility]* Diagnosis Insomnia, unspecified type documented [facility]* Diagnosis Chronic midline low back pain with sciatica, sciatica laterality unspecified- Primary documented [facility]* Diagnosis Lymphedema- Primary Other lymphedema documented in this encounter [facility] note* Diagnosis Lymphedema- Primary Other lymphedema Lumbar spondylosis Lumbosacral spondylosis without myelopathy Thoracic spine pain Pain in thoracic spine Myofascial pain Mylagia and myositis, unspecified documented [facility]* Diagnosis Bilateral leg edema Edema [facility]* Diagnosis Lymphedema- Primary Other lymphedema documented [facility]* Diagnosis Lumbar spondylosis- Primary Lumbosacral spondylosis without myelopathy documented in this encounter [facility] note* Diagnosis Lymphedema- Primary Other lymphedema Lumbar spondylosis Lumbosacral spondylosis without myelopathy Lumbar spondylosis Lumbosacral spondylosis without myelopathy documented in this encounter [facility] note* Diagnosis Lymphedema- Primary Other lymphedema Lumbar spondylosis Lumbosacral spondylosis without myelopathy Lumbar spondylosis Lumbosacral spondylosis without myelopathy documented [facility]* Diagnosis Onset Date Resolution Status Chronic acquired lymphedema chronic [facility] Work Phone: Evaluation note* Diagnosis Lumbar spondylosis Lumbosacral spondylosis without myelopathy Lumbar spondylosis Lumbosacral spondylosis without myelopathy documented in this encounter [facility] note* Diagnosis Lumbar spondylosis- Primary Lumbosacral spondylosis without myelopathy Myofascial pain Mylagia and myositis, unspecified Other chronic pain Lumbar spondylosis Lumbosacral spondylosis without myelopathy documented [facility]* Diagnosis Onset Date Resolution Status Chronic acquired lymphedema chronic Abdominal ascites acute Swelling of left lower extremity acute Chronic acquired lymphedema [facility] Work Phone: Evaluation note* Diagnosis Lymphedema- Primary Other lymphedema Lumbar spondylosis Lumbosacral spondylosis without myelopathy [facility]* Diagnosis Leg swelling- Primary Swelling of limb Shortness of breath Shortness of breath Abdominal distension Flatulence, eructation, and gas pain Function kidney decreased Unspecified disorder of kidney and ureter Lumbar spondylosis Lumbosacral spondylosis without myelopathy documented in this encounter [facility] note* Diagnosis Abdominal distension Flatulence, eructation, and gas pain Lumbar spondylosis Lumbosacral spondylosis without myelopathy documented in this encounter [facility] note* Diagnosis Lymphedema- Primary Other lymphedema Lumbar spondylosis Lumbosacral spondylosis without myelopathy documented [facility]* Diagnosis Bilateral leg edema Edema Lumbar spondylosis Lumbosacral spondylosis without myelopathy documented [facility]* Diagnosis Insomnia, unspecified type documented [facility] this [facility]* Diagnosis Lumbar spondylosis- Primary Lumbosacral spondylosis without myelopathy Myofascial pain Mylagia and myositis, unspecified documented [facility]* Diagnosis Onset Date Resolution Status Chronic acquired lymphedema chronic Swelling of left lower extremity acute Chronic acquired lymphedema chronic Acute diastolic (congestive) heart failure acute Dyspnea on minimal exertion acute Essential (primary) hypertension chronic [facility] Work Phone: Evaluation note* Diagnosis Lumbar spondylosis- Primary Lumbosacral spondylosis without myelopathy Lumbar spondylosis Lumbosacral spondylosis without myelopathy documented in this encounter [facility] note* Diagnosis Female stress incontinence- Primary Lumbar spondylosis Lumbosacral spondylosis without myelopathy [facility] Diagnosis Onset Date Resolution Status Chronic acquired lymphedema chronic Swelling of left lower extremity acute Chronic acquired lymphedema chronic Dyspnea on minimal exertion acute Essential (primary) hypertension chronic [facility] Work Phone: Evaluation note* Diagnosis Onset Date Resolution Status Chronic acquired lymphedema chronic Swelling of left lower extremity acute Chronic acquired lymphedema chronic Dyspnea on minimal exertion acute Essential (primary) hypertension chronic (HFpEF) heart failure with preserved ejection fraction chronic Essential (primary) hypertension chronic [facility] Work Phone: Evaluation note* Diagnosis Insomnia, unspecified type [facility] Diagnosis C. difficile colitis- Primary Intestinal infection due to clostridium difficile Rectal bleeding Hemorrhage of rectum and anus Change in stool Nonspecific abnormal finding in stool contents Fall, initial encounter [facility] Diagnosis Onset Date Resolution Status (HFpEF) heart failure with preserved ejection fraction chronic Essential (primary) hypertension chronic [facility] Work Phone: Evaluation note* Diagnosis Lumbar spondylosis- Primary Lumbosacral spondylosis without myelopathy Anxiety due to invasive procedure [facility]* Diagnosis Dysuria- Primary Female stress incontinence Leg swelling Swelling of limb Chronic knee pain, unspecified laterality Chronic right-sided low back pain without sciatica Change in stool Nonspecific abnormal finding in stool contents documented in this encounter [facility] note* Diagnosis Female stress incontinence- Primary Urge urinary incontinence Urge incontinence [facility]* Diagnosis Lumbar spondylosis- Primary Lumbosacral spondylosis without myelopathy documented in this encounter [facility] note* Diagnosis Insomnia, unspecified type documented [facility]* Diagnosis Chronic bilateral low back pain without sciatica- Primary Lumbar spondylosis Lumbosacral spondylosis without myelopathy [facility]* Diagnosis Onset Date Resolution Status Chest pain acute (HFpEF) heart failure with preserved ejection fraction chronic Essential (primary) hypertension chronic [facility] Work Phone: Evaluation note* Diagnosis Chronic bilateral low back pain without sciatica- Primary Lumbar spondylosis Lumbosacral spondylosis without myelopathy [facility]* Diagnosis Lumbar spondylosis- Primary Lumbosacral spondylosis without myelopathy Chronic bilateral low back pain without sciatica documented [facility]* Diagnosis Insomnia, unspecified type- Primary documented in this encounter [facility] note* Diagnosis Lumbar spondylosis- Primary Lumbosacral spondylosis without myelopathy Myofascial pain Mylagia and myositis, unspecified documented [facility]* Diagnosis Onset Date Resolution Status Chest pain acute (HFpEF) heart failure with preserved ejection fraction chronic Essential (primary) hypertension chronic (HFpEF) heart failure with preserved ejection fraction chronic [facility] Work Phone: Evaluation note* Diagnosis Rib pain Chest pain, unspecified documented [facility]* Diagnosis Female stress incontinence- Primary Chronic right-sided low back pain without sciatica BENIGN HYPERTENSION(aka HTN) Essential hypertension, benign Hypothyroidism, acquired Unspecified hypothyroidism Insomnia, unspecified type Leg swelling Swelling of limb Decreased glomerular filtration rate (GFR) Chronic knee pain, unspecified laterality Acute pain of left shoulder documented in this encounter [facility] note* Diagnosis Decreased glomerular filtration rate (GFR)- Primary documented in this encounter [facility] note* Diagnosis Primary osteoarthritis of both shoulders- Primary Lumbar spondylosis Lumbosacral spondylosis without myelopathy Myofascial pain Mylagia and myositis, unspecified Rotator cuff impingement syndrome, unspecified laterality documented [facility]* Diagnosis Lumbar spondylosis Lumbosacral spondylosis without myelopathy Spinal stenosis of lumbar region without neurogenic claudication Spinal stenosis, lumbar region, without neurogenic claudication Thoracic spine pain Pain in thoracic spine Chronic midline thoracic back pain documented [facility]* Diagnosis Closed fracture of base of fifth metatarsal bone of right foot at metaphyseal-diaphyseal junction, initial encounter documented in this encounter [facility] note* Diagnosis Fall, initial encounter [facility]* Diagnosis Primary osteoarthritis of both shoulders Rotator cuff impingement syndrome, unspecified laterality documented in this encounter [facility] note* Diagnosis Primary osteoarthritis of both shoulders- Primary documented [facility]* Diagnosis Primary osteoarthritis of both shoulders- Primary [facility]* Diagnosis Primary osteoarthritis of both shoulders- Primary [facility]* Diagnosis Primary osteoarthritis of both shoulders- Primary [facility]* Diagnosis 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 [facility]* Diagnosis Onset Date Resolution Status Constipation acute Acute kidney injury superimp osed on chronic kidney disease [facility] Work Phone: Evaluation note* Diagnosis Onset Date Resolution Status Constipation acute Dyspnea on minimal exertion acute Fecal impaction in rectum ac [place] Acute kidney injury superimp osed on chronic kidney disease [facility] Work Phone: Evaluation note* Diagnosis Pleurodynia Painful respiration [facility]* Diagnosis Leg swelling Swelling of limb [facility]* Diagnosis Insomnia, unspecified type documented [facility]* Diagnosis Primary osteoarthritis of both shoulders- Primary [facility]* Diagnosis Female stress incontinence- Primary [...] constipation Unspecified const[facility] Primary osteoarthritis of both shoulders- Primary Lumbar spondylosis Lumbosacral spondylosis without myelopathy Myofascial pain Mylagia and myositis, unspecified Pleurodynia Painful respiration [facility] Diagnosis Insomnia, unspecified type- Primary [facility] Diagnosis Dizziness- Primary Dizziness and giddiness [...] Insomnia, unspecified type [facility] Leg swelling Swelling of limb [facility] Diagnosis Primary osteoarthritis of both shoulders- Primary [facility] Diagnosis 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 hyperplasia with atypia IUD (intrauterine device) in place Presence of intrauterine contraceptive device [facility] Diagnosis Insomnia, unspecified type [facility] Diagnosis Falls- Primary Unspecified fall Balance problem Other symptoms involving nervous and musculoskeletal systems [facility] Diagnosis Primary osteoarthritis of both shoulders- Primary Lumbar spondylosis Lumbosacral spondylosis without myelopathy [facility] Diagnosis Hypothyroidism, acquired- Primary Unspecified hypothyroidism [facility] Acute [facility] Diagnosis SOB (shortness of breath) Shortness of breath Rib pain on left side Chest pain, unspecified [facility] Diagnosis BENIGN HYPERTENSION(aka HTN)- Primary Essential [...] single bacterial disease [facility]* Diagnosis Insomnia, unspecified type documented in this encounter [facility] note* Diagnosis 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 [...] Unspecified essential hypertension [facility] Diagnosis Insomnia, unspecified type [facility]* Diagnosis BENIGN HYPERTENSION(aka HTN)- Primary Essential hypertension, benign Leg swelling Swelling of limb Chronic kidney disease, stage 4 (severe) ([facility]) Chronic obstructive pulmonary disease, unspecified COPD type ([facility]) Class 3 severe obesity with body mass [...] 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 ([facility]) Insomnia, unspecified type [facility]* Diagnosis Lower respiratory infection- Primary Other diseases of respiratory system, not elsewhere classified documented [facility]* Diagnosis Anemia in chronic kidney disease, unspecified CKD stage- Primary Leg swelling Swelling of limb Essential hypertension, benign Iron deficiency anemia due to chronic blood loss Iron deficiency anemia secondary to blood loss (chronic) Hypothyroidism, acquired Unspecified hypothyroidism Seizures (HCC) Other convulsions Insomnia, unspecified type CKD (chronic kidney disease) stage 4, GFR 15-29 ml/min ([facility]) Chronic kidney disease, Stage IV (severe) Hyperlipidemia LDL goal <100 Other and unspecified hyperlipidemia Chronic constipation Unspecified constipation [facility]* Diagnosis Lower respiratory infection Other diseases of respiratory system, not elsewhere classified [facility]* Diagnosis Subacute cough- Primary Cough [facility]* Diagnosis Subacute cough Cough [facility]* Diagnosis Subacute cough- Primary Cough Leg swelling Swelling of limb SOB (shortness of breath) Shortness of breath Lower respiratory infection Other diseases of respiratory system, not elsewhere classified [facility]* Diagnosis BENIGN HYPERTENSION(aka HTN)- Primary Essential hypertension, benign Lumbar spondylosis Lumbosacral spondylosis without myelopathy Myofascial pain Mylagia and myositis, unspecified Hypothyroidism, acquired Unspecified hypothyroidism Anemia in chronic kidney disease, unspecified CKD stage CKD (chronic kidney disease) stage 4, GFR 15-29 ml/min ([facility]) Chronic kidney disease, Stage IV (severe) Bilateral leg edema Edema documented [facility]* Diagnosis BENIGN HYPERTENSION(aka HTN)- Primary Essential hypertension, benign Seizures (HCC) Other convulsions Hypothyroidism, acquired Unspecified hypothyroidism Renal failure, unspecified chronicity CKD (chronic kidney disease) stage 4, GFR 15-29 ml/min ([facility]) Chronic kidney disease, Stage IV (severe) Insomnia, unspecified type Recurrent UTI (urinary tract infection) Urinary tract infection, site not specified Bilateral leg edema Edema documented [facility]* Diagnosis Class 3 severe obesity with body mass index (BMI) of 40.0 to 44.9 in adult ([facility])- Primary Primary osteoarthritis of both knees Primary localized osteoarthrosis, lower leg Anemia in chronic kidney disease, unspecified CKD stage Hypothyroidism, acquired Unspecified hypothyroidism Renal failure, unspecified chronicity Chronic midline low back pain with sciatica, sciatica laterality unspecified Lymphedema Other lymphedema Chronic kidney disease, stage 4 (severe) (HCC) Chronic obstructive pulmonary disease, unspecified COPD type (HCC) [facility] Author Michelle Gallardo [facility] Note Date/Time September 28, 2024 8:47 pm [facility] Medical Records Department [address] [facility] [place] [address] H&P Exam - Hospitalist 09/28/241999 MR#: [id number] Acct: [id number] Name: MARI LOPEZ Rep #:[id number] : 1940 84 From: Michelle Gallardo MD PCP: BROOKLYN Aguillon Status:ADM I N Location: [place] [address] HPI - General General Date of Admission: [...] will be administered dose low dose kayexelate. [facility] Medical History (Updated 09/28/24 @ 20:45 [...] bisacodyl 10 mg rectal suppository 10 mg MD X1 PRN Con stipation #1 ea 06/09/24 [...] % (Auto) 66.9, Lymph % (Auto) 20.1, [place] % (Auto) 8.7, Eos % (Auto) 3.6, [...] Globulin 2.7, Albumin/Globulin Ratio 1.1, Lipase 54 06/25/25 18:56: Total Creatine Kinase 27 Imaging Radiology Impression Knee X-Ray 09/28/24 15:30 IMPRESSION: No obvious acute fracture. Reading Location: [facility] Brain CT 09/28/24 17:00 IMPRESSION: No acute intracranial process. Consider MR if symptoms persist. Reading Location: [facility] Knee X-Ray 09/28/24 17:05 IMPRESSION: No obvious acute fracture. Reading Location: [facility] Assessment & Plan Assessment/Plan (1) JOSE (acute [...] 16 minutes. Charges/Coding Visit Charges Inpatient E&M: 24795 Init Hosp L3 Procedures Hospitalists Procedures: 15866 Advncd Care Plan 30 Min 09/28/242046 <Electronically signed by Michelle Gallardo MD> Cosigner Signature (if applicable): CC: BROOKLYN Orozco; Dr. Michelle Gallardo MD~ Signed [facility] Work Phone: History and physical note Author Russell Todd [facility] Note Date/Time October 29, 2024 5:59 am [facility] Medical Records Department [address] [place] [id number] H&P Exam - Hospitalist 10/29/24 0545 MR#: [id number] Acct: [id number] Name: MARI LOPEZ Rep #:[id number] : 1940 84 From: Russell Todd DO PCP: Dr. Lizy Capone MD Status:RE G ER Location: ED HPI - General General Date of Service: 10/29/24 Chief Complaint: Weakness HPI Narrative MARI LOPEZ, is a 84 F who presents with weakness. Patient was admitted earlier this month discharged to transitional care unit where she was and was able to walk out on her own accord. Had been doing well but has progressively gotten weaker at home and over the past 2 days was essentially bedbound. Patient was reluctant but finally agreed to going to a [facility] facility and they were attempting to do so from home but with her being bedridden for 2 days was not feasible so patient was sent to the emergency room. In the emergency room, patient's creatinine was noted to be 3.16 chest x-ray was concerning for pulmonary vascular congestion. Heart rate did get up and she did receive a doseof her carvedilol. Patient has lower extremity wounds that have opened up and noted that her legs are seeping fluid. She states that her weight has gone up roughly 10 pounds. She says that she has not had a bowel movement in 6 days. [facility] Medical History VRE (vancomycin resistant enterococcus) [...] 06/27/22 Unknown Rx tablet pain #30 tabs atorvastatin 40 mg tablet 40 mg PO [...] 1 tab PO DAILY Supplement 09/28/24 History Arthritis Pain Compound 3 click [...] (vitamin D3) 25 50 mcg PO DAILY Unknown History mcg (1,000 unit) tablet doxycycline hyclate 100 mg capsule 100 mg PO BID 5 day s #10 caps 10/26/24 Unknown Rx fluoride (sodium) 1.1 % dental 1 applic PO Q24H Unknown History cream (Denta 5000 Plus) gabapentin 300 mg capsule 300 mg PO TID 10/26/24 Unkno wn History lacosamide 100 mg tablet 100 mg PO Q12H 10/26/24 Unkn own History nystatin 100,000 unit/gram topical topical 10/26/24 Un known History powder (Klayesta) vibegron 75 mg tablet (Gemtesa) 75 mg PO DAILY 5 Unknown History polyethylene glycol 3350 17 17 g PO DAILY 10/29/24 Unk nown History gram/dose oral powder (Miralax) Allergy/AdvReac Type Severity Reaction Status Date / Time cefazolin (From Kefzol) Allergy Severe hives/difficulty Verified 10/29/24 03:39 swallowing ibuprofen Allergy Unknown Rash Verified 10/29/24 03:39 peanut Allergy Anaphylaxis Verified 10/29/24 03:39 Sulfa (Sulfonamide Allergy Unknown Verified 10/29/24 03:39 Antibiotics) sulfamethoxazole (From Allergy Other Verified 10/29/24 03:39 Bactrim) trimethoprim (From Bactrim) Allergy Other Verified 10/29/24 03:39 Family History Mother Cancer uterine Father No [...] Number of servings: 3 ROS ROS Narrative Has been having tremulousness again. All review of systems were negative exceptas mentioned above in the history of present illness and the other review of systems. Vital Signs Vital Signs Vital Signs: 10/29/24 03:40 10/29/24 03:40 10/29/24 05:09 Temperature 36.4 C L 36.6 C Temperature Source Oral Pulse Rate 124 H 108 H Respiratory Rate 18 18 Respiratory Effort Normal Non-Labored Respiratory Pattern Normal Blood Pressure 102/86 H 98/82 H Blood Pressure Mean 91 87 Pulse Ox 100 96 Oxygen Delivery Method Room Air 10/29/24 05:11 Temperature Temperature Source Pulse Rate 108 H Respiratory Rate 18 Respiratory Effort Respiratory Pattern Blood Pressure 98/82 H Blood Pressure Mean 87 Pulse Ox 96 Oxygen Delivery Method Room Air Weight Weight: 104.8 kg Body Mass Index (BMI) 42.3 Physical Exam Narrative POCUS: Indication is for heart failure. Limited no phased-array probe on and also limited due to body habitus and respirations. IVC was visualized did not appear overly enlarged and did not appear to be collapsible with respiration so once again was limited. Const alert and no apparent distress Constitutional Narrative: On room air. No respiratory distress. No conversational dyspnea. Patient has very good recollection of the events out of curried over the past several months. She does recall be seeing her during her hospitalization from September to October. General Appearance: cooperative HEENT normocephalic Eyes Eyes Narrative: No icterus Neck no lymphadenopathy Neck Narrative: No thyromegaly Resp normal respiratory effort and no retractions Cardio S1 normal heart sound and S2 normal heart sound Cardio Narrative: Tachycardic GI GI Narrative: Obese. Soft. Nondistended nontender. No hepatosplenomegaly Extremity Extremity Narrative: Bilateral tight lower extremity edema. With some diffuse serous drainage. Skin Skin Narrative: Opened up lesion on right medial calf. No surrounding erythema. Anterior stitch. Skin graft site on right anterior thigh appears grossly normal. Of anycellulitis. Left lateral calf patient has a lesion that is healed without any surrounding erythema. Neuro moves all extremities Sensorium / Orientation: awake and alert Psych affect normal Results Lab / Micro Data Attestation: I reviewed the patient's lab results. 10/29/24 03:51 10/29/24 03:51 Labs: Laboratory Results - last 24 hr 10/29/24 03:51: WBC 5.8, RBC 2.94 L, Hgb 9.4 L, Hct 31.4 L, MCV 106.8 H, MCH 32.0, MCHC 29.9 L, RDW Std Deviation 57.2 H, RDW Coeff of [place] 15.0 H, Plt Count 212, MPV 13.6 H, Immature Gran % (Auto) 0.200, Neut % (Auto) 53.2, Lymph % (Auto) 30.1, [place] % (Auto) 9.8, Eos % (Auto) 6.0 H, Baso % (Auto) 0.7, Absolute Neuts (auto) 3.1, Absolute Lymphs (auto) 1.74, Nucleated RBC % 0, Sodium 142, Potassium 4.4, Chloride 106, Carbon Dioxide 23.5, Anion Gap 13, BUN 67 H, Creatinine 3.16 H, Estim Creat Clear Calc 15.60 L, Est GFR (MDRD) Non-Af 14 L, BUN/Creatinine Ratio 21.3 H, Glucose 98, Calcium 8.3, Magnesium 2.3 H, TSH 4.310 H 10/29/24 04:14: Urine Color Straw, Urine Clarity Clear, Urine pH 6.0, Ur Specific [place] 1.010, Urine Protein 15 H, Urine Glucose (UA) Normal, Urine Ketones Negative, Urine Occult Blood Negative, Urine Nitrite Negative, Urine Bilirubin Negative, Urine Urobilinogen Normal, Ur Leukocyte Esterase 25 H, UrineRBC 0 SEEN, Urine WBC 5-10 SEEN, Ur Squamous Epith Cells 0-5 SEEN, Urine Bacteria 0 SEEN, Urine Mucus 0 SEEN Imaging Radiology Impression Chest X-Ray 10/29/24 04:20 IMPRESSION: No definite acute chest findings. Possible very mild central interstitial edema. Advise correlation. Reading Location: [facility] Assessment & Plan Assessment/Plan (1) (HFpEF) heart failure with preserved ejection fraction: PLAN: Chest x-ray reviewed and shows some pulmonary vascular congestion as well as patient does have marked swelling with serous drainage in her lower extremities. Patient has been taking Lasix at home but has still put on 10 pounds (though the weight here shows that her weight is down roughly 19 kg sinceJuly 23--I think this is innaccurate as losing 20 kg seems highly doubtful). Will start IV furosemide. Fluid restrict. Patient had echocardiogram from May 2024 where she had an EF of 55% (2) Open leg wound: PLAN: Complicated by her lower extremity edema No evidence of any cellulitis at this time Consult wound care for routine wound management. Follow-up with Dr. Lomax as outpt. (3) Debility: PLAN: Patient was already in the works of going to [facility] from home. Will have PT OT evaluate and treat. Case management to assist on disposition. (4) Tremulousness: PLAN: Very subtle currently compared to how much she was having last time. It is all that is due to the gabapentin that she is taking. She was on 300 3-timesa day decreased to 100 3 times daily she was discharged and discontinue it altogether and monitor. I am concerned that not clearing appropriately given her CKD, despite the reduced dose. PLAN: Plan Chronic medical conditions * CKD 4: Creatinine has been variable over the past month. Hopefully with diuresis that will help with perfusion of her kidneys. * Obesity class III: Complicates care and recovery * Paroxysmal atrial fibrillation: Continue carvedilol and apixaban * Hypothyroidism: Continue levothyroxine. TSH 4.31. Check free T4. VTE prophylaxis: Not indicated as patient is already anticoagulated Charges/Coding Visit Charges Inpatient E&M: 64487 Init Hosp L3 10/29/24 0559 <Electronically signed by Russell Todd DO> Cosigner Signature (if applicable): CC: Dr. Russell Todd DO; Dr. Lizy Capone MD~ Signed [facility] Work Phone: Hospital Discharge instructions Additional Instructions X-ray right leg negative. Continue ice to help with burning. Jeancarlos wrap to help with compression. You have medication of oxycodone use at facility. Daily wound care. Follow-up with wound care clinic to make sure appropriate healing.[facility] Work Phone: Hospital Discharge instructionsAdditional Instructions Would recommend Zofran and ODT instead of Zofran tablets.[facility] Work Phone: Hospital Discharge instructionsAdditional Instructions Discharge home with friend 10/20/2024, [facility] PT/OT/SN. Wound Instructions Cleanse blisters to the right thigh donor site gently with soap and water, pat dry. apply hydrogel and Adaptic and cover with ABD pad, change BID and prn. Foam dressing to blisters right hip (rubs on attends). change every other day and prn. Apply Aquaphor to graft site RLE.[facility] Work Phone: Reason for referral (narrative)* Diagnostic Procedure Only (Routine) - Closed Specialty Diagnoses / Procedures Referred By Contac t Referred To Contact XR IMAGING Diagnoses SOB (shortness of breath) Rib pain on left side Procedures XR RIBS/CHEST 3V AP RIB/OBLS/CXR LEFT RADEX RIBS UNI W/POSTEROANT CH MINIMUM 3 VIEWS Lizy Capone MD [address] [place] [address] Xr Imaging Referral ID Status Reason Start Date Expiration Date V isits Requested Visits Authorized [id number] Closed Auto-Generate d Referral 07/16/2021 08/15/[address] [facility] for referral (narrative)* - Authorized Specialty Diagnoses / Procedures Referred By Contac t Referred To Contact Physical Therapy Diagnoses Lumbar spondylosis Thoracic spine pain Myofascial pain Procedures CONSULT TO PHYSICAL THERAPY Avis Marrufo, BUSINESS OFFICE TECHNOLOGY INSTRUCTOR.MRI MANAGER [address] [place] [address] Referral ID Status Reason Start Date Expiration Date V isits Requested Visits Authorized [id number] Authorized 09/19/2021 12/18/2021 99 99 Electronically signed by Avis Marrufo BUSINESS OFFICE TECHNOLOGY INSTRUCTOR.MRI MANAGER at 09/19/2021 9:51 AM EDT * Diagnostic Procedure Only (Routine) - Pending Review Specialty Diagnoses / Procedures Referred By Contac t Referred To Contact XR IMAGING Diagnoses Thoracic spine pain Procedures XR THORACIC LIMITED 2V AP/LAT RADEX SPINE THORACIC 2 VIEWS Avis Marrufo APRN.MRI MANAGER [address] [place] [address] Xr Imaging Referral ID Status Reason Start Date Expiration Date Visits Requested Visits Authorized [id number] Pending Review Auto-Generat ed Referral 09/19/2021 10/19/2022 1 1 * Diagnostic Procedure Only (Routine) - Pending Review Specialty Diagnoses / Procedures Referred By Contac t Referred To Contact XR IMAGING Diagnoses Lumbar spondylosis Procedures XR LUMBAR MOTION 4V AP/LAT/ FLEX/EXT RADEX SPINE LUMBOSACRAL MINIMUM 4 VIEWS Avis Marrufo APRN.MRI MANAGER [address] [place] [address] Xr Imaging Referral ID Status Reason Start Date Expiration Date Visits Requested Visits Authorized [id number] Pending Review Auto-Generat ed Referral 09/19/2021 10/19/[address] [facility] for referral (narrative)* Diagnostic Procedure Only (Routine) - Closed Specialty Diagnoses / Procedures Referred By Contac t Referred To Contact XR IMAGING Diagnoses Thoracic spine pain Procedures XR THORACIC LIMITED 2V AP/LAT RADEX SPINE THORACIC 2 VIEWS Avis Marrufo APRN.MRI MANAGER [address] [place] [address] Xr Imaging Referral ID Status Reason Start Date Expiration Date V isits Requested Visits Authorized [id number] Closed Auto-Generate d Referral 09/19/2021 10/19/2022 1 1 * Diagnostic Procedure Only (Routine) - Closed Specialty Diagnoses / Procedures Referred By Contac t Referred To Contact XR IMAGING Diagnoses Lumbar spondylosis Procedures XR LUMBAR MOTION 4V AP/LAT/ FLEX/EXT RADEX SPINE LUMBOSACRAL MINIMUM 4 VIEWS Avis Marrufo, BUSINESS OFFICE TECHNOLOGY INSTRUCTOR.MRI MANAGER [address] [place] [address] Xr Imaging Referral ID Status Reason Start Date Expiration Date V isits Requested Visits Authorized [id number] Closed Auto-Generate d Referral 09/19/2021 10/19/2022 1 1 Electronically signed by Avis Marrufo BUSINESS OFFICE TECHNOLOGY INSTRUCTOR.MRI MANAGER at 09/20/2021 1:[address] [facility] for referral (narrative)* Diagnostic Procedure Only (Urgent) - Closed Specialty Diagnoses / Procedures Referred By Contac t Referred To Contact US IMAGING Diagnoses Abdominal distension Procedures US ABDOMEN COMPLETE US ABDOMINAL REAL TIME W/IMAGE DOCUMENTATION Miryam Orozco, BUSINESS OFFICE TECHNOLOGY INSTRUCTOR.MRI MANAGER [address] [place] [address] Us Imaging Referral ID Status Reason Start Date Expiration Date V isits Requested Visits Authorized [id number] Closed Auto-Generate d Referral 01/02/2022 02/01/[address] [facility] for referral (narrative)* Diagnostic Procedure Only (Routine) - Closed Specialty Diagnoses / Procedures Referred By Contac t Referred To Contact XR IMAGING Diagnoses Fall, initial encounter Procedures XR ELBOW SPECIAL VIEWS AP/LAT/OTHER LEFT RADEX ELBOW COMPLETE MINIMUM 3 VIEWS Jae Cagle MD [address] [place] [address] Xr Imaging Referral ID Status Reason Start Date Expiration Date V isits Requested Visits Authorized [id number] Closed Auto-Generate d Referral 05/13/2022 06/12/2023 1 1 * Diagnostic Procedure Only (Routine) - Closed Specialty Diagnoses / Procedures Referred By Contac t Referred To Contact XR IMAGING Diagnoses Fall, initial encounter Procedures XR HIP GENERAL 3V PELV/AP/LAT RIGHT RADEX HIP UNILATERAL WITH PELVIS 2-3 VIEWS Jae Cagle MD [address] [facility] [place] [address] Xr Imaging Referral ID Status Reason Start Date Expiration Date V isits Requested Visits Authorized [id number] Closed Auto-Generate d Referral 05/13/2022 06/12/[address] [facility] for referral (narrative)* Outpatient Procedure (Routine) - Pending Review Specialty Diagnoses / Procedures Referred By Kallie alejandra Referred To Contact [facility] Diagnoses Female stress incontinence Urge urinary incontinence Procedures URODYNAMICS WHI COMPLX CYSTOMETRO W/VOID PRESS&URETHRAL PROFILE Ragini Gomes APRN.MRI MANAGER [address] [place] [address] x2 [facility][Note 3] [address] [place] [address] Referral ID Status Reason Start Date Expiration Date Visits Requested Visits Authorized [id number] Pending Review Auto-Generat ed Referral 06/30/2022 06/30/[address] [facility] for referral (narrative)* Diagnostic Procedure Only (Routine) - Closed Specialty Diagnoses / Procedures Referred By Kallie alejandra Referred To Contact XR IMAGING Diagnoses Primary osteoarthritis of both shoulders Rotator cuff impingement syndrome, unspecified laterality Procedures XR SHOULDER [id number] AP/TRUE AP RIGHT RADEX SHOULDER COMPLETE MINIMUM 2 VIEWS Roque Delgado MD [address] [address] [place] [address] Referral ID Status Reason Start Date Expiration Date V isits Requested Visits Authorized [id number] Closed Auto-Generate d Referral 01/15/2023 02/14/2024 1 1 * Diagnostic Procedure Only (Routine) - Closed Specialty Diagnoses / Procedures Referred By Kallie t Referred To Contact XR IMAGING Diagnoses Primary osteoarthritis of both shoulders Rotator cuff impingement syndrome, unspecified laterality Procedures XR SHOULDER LIMITED 2V AP/TRUE AP LEFT RADEX SHOULDER COMPLETE MINIMUM 2 VIEWS Roque Delgado MD [address] [employer] [address] [address] [place] [address] Referral ID Status Reason Start Date Expiration Date V isits Requested Visits Authorized [id number] Closed Auto-Generate d Referral 01/15/2023 02/14/[address] [facility] for referral (narrative)* Diagnostic Procedure Only (Routine) - Closed Specialty Diagnoses / Procedures Referred By Contac t Referred To Contact XR IMAGING Diagnoses Closed fracture of base of fifth metatarsal bone of right foot at metaphyseal-diaphyseal junction, initial encounter Procedures XR FOOT GENERAL 3V AP/LAT/OBL RIGHT RADEX FOOT COMPLETE MINIMUM 3 VIEWS Roque Delgado MD [address] [address] [place] [address] Referral ID Status Reason Start Date Expiration Date V isits Requested Visits Authorized [id number] Closed Auto-Generate d Referral 07/31/2022 08/30/[address] [facility] for referral (narrative)* Diagnostic Procedure Only (Routine) - Closed Specialty Diagnoses / Procedures Referred By Contac t Referred To Contact XR IMAGING Diagnoses Fall, initial encounter Procedures XR ELBOW SPECIAL VIEWS AP/LAT/OTHER LEFT RADEX ELBOW COMPLETE MINIMUM 3 VIEWS Jae Cagle MD [address] [place] [address] [place] [address] Referral ID Status Reason Start Date Expiration Date V isits Requested Visits Authorized [id number] Closed Auto-Generate d Referral 05/13/2022 06/12/2023 1 1 * Diagnostic Procedure Only (Routine) - Closed Specialty Diagnoses / Procedures Referred By Contac t Referred To Contact XR IMAGING Diagnoses Fall, initial encounter Procedures XR HIP GENERAL 3V PELV/AP/LAT RIGHT RADEX HIP UNILATERAL WITH PELVIS 2-3 VIEWS Jae Cagle MD [address] [place] [address] [place] [address] Referral ID Status Reason Start Date Expiration Date V isits Requested Visits Authorized [id number] Closed Auto-Generate d Referral 05/13/2022 06/12/[address] [facility] for referral (narrative)* Diagnostic Procedure Only (Routine) - Closed Specialty Diagnoses / [facility] Diagnoses Primary osteoarthritis of both shoulders Rotator cuff impingement syndrome, unspecified laterality Procedures XR SHOULDER [id number] AP/TRUE AP RIGHT RADEX SHOULDER COMPLETE MINIMUM 2 VIEWS Roque Delgado MD [address] [facility] [address] [address] [place] [address] Referral ID Status Reason Start Date Expiration Date V isits Requested Visits Authorized [id number] Closed Auto-Generate d Referral 01/15/2023 02/14/2024 1 1 * Diagnostic Procedure Only (Routine) - Closed Specialty Diagnoses / Procedures Referred By Kallie alejandra Referred To Contact XR IMAGING Diagnoses Primary osteoarthritis of both shoulders Rotator cuff impingement syndrome, unspecified laterality Procedures XR SHOULDER LIMITED 2V AP/TRUE AP LEFT RADEX SHOULDER COMPLETE MINIMUM 2 VIEWS Roque Delgado MD [address] [facility] [address] [address] [place] [address] Referral ID Status Reason Start Date Expiration Date V isits Requested Visits Authorized [id number] Closed Auto-Generate d Referral 01/15/2023 02/14/[address] [facility] for referral (narrative)* Diagnostic Procedure Only (Routine) - Closed Specialty Diagnoses / Procedures [facility] To Contact X[facility]AGING Diagnoses SOB (shortness of breath) Rib pain on left side Procedures XR RIBS/CHEST 3V AP RIB/OBLS/CXR LEFT RADEX RIBS UNI W/POSTEROANT CH MINIMUM 3 VIEWS Lizy Capone MD [address] [place] [address] [place] [address] Referral ID Status Reason Start Date Expiration Date V isits Requested Visits Authorized [id number] Closed Auto-Generate d Referral 07/16/2021 08/15/[address] [facility] for visit Narrative* Diagnostic Procedure Only (Routine) - Closed Specialty Diagnoses / Procedures Referred By Contac t Referred To Contact XR IMAGING Diagnoses Thoracic spine pain Procedures XR THORACIC LIMITED 2V AP/LAT RADEX SPINE THORACIC 2 VIEWS Avis Marrufo, BUSINESS OFFICE TECHNOLOGY INSTRUCTOR.MRI MANAGER [address] [place] [address] Xr Imaging Referral ID Status Reason Start Date Expiration Date V isits Requested Visits Authorized [id number] Closed Auto-Generate d Referral 09/19/2021 10/19/[address] [facility] for visit Narrative* Diagnostic Procedure Only (Urgent) - Closed Specialty Diagnoses / Procedures Referred By Contac t Referred To Contact US IMAGING Diagnoses Abdominal distension Procedures US ABDOMEN COMPLETE US ABDOMINAL REAL TIME W/IMAGE DOCUMENTATION Miryam Orzoco, BUSINESS OFFICE TECHNOLOGY INSTRUCTOR.MRI MANAGER [address] [place] [address] Us Imaging Referral ID Status Reason Start Date Expiration Date V isits Requested Visits Authorized [id number] Closed Auto-Generate d Referral 01/02/2022 02/01/[address] [facility] for visit Narrative* Diagnostic Procedure Only (Routine) - Closed Specialty Diagnoses / Procedures Referred By Contac t Referred To Contact XR IMAGING Diagnoses Closed fracture of base of fifth metatarsal bone of right foot at metaphyseal-diaphyseal junction, initial encounter Procedures XR FOOT GENERAL 3V AP/LAT/OBL RIGHT RADEX FOOT COMPLETE MINIMUM 3 VIEWS Roque Delgado MD [address] [address] [place] [address] Referral ID Status Reason Start Date Expiration Date V isits Requested Visits Authorized [id number] Closed Auto-Generate d Referral 07/31/2022 08/30/[address] [facility] for visit Narrative* Diagnostic Procedure Only (Routine) - Closed Specialty Diagnoses / Procedures Referred By Contac t Referred To Contact XR IMAGING Diagnoses Fall, initial encounter Procedures XR ELBOW SPECIAL VIEWS AP/LAT/OTHER LEFT RADEX ELBOW COMPLETE MINIMUM 3 VIEWS Jae Cagle MD [address] [place] [address] [place] [address] Referral ID Status Reason Start Date Expiration Date V isits Requested Visits Authorized [id number] Closed Auto-Generate d Referral 05/13/2022 06/12/[address] [facility] for visit Narrative* Diagnostic Procedure Only (Routine) - Closed Specialty Diagnoses / Procedures Referred By Contac t Referred To Contact XR IMAGING Diagnoses Primary osteoarthritis of both shoulders Rotator cuff impingement syndrome, unspecified laterality Procedures XR SHOULDER [id number] AP/TRUE AP RIGHT RADEX SHOULDER COMPLETE MINIMUM 2 VIEWS Roque Delgado MD [address] [address] [place] [address] Referral ID Status Reason Start Date Expiration Date V isits Requested Visits Authorized [id number] Closed Auto-Generate d Referral 01/15/2023 02/14/[address] [facility] for visit Narrative* Diagnostic Procedure Only (Routine) - Closed Specialty Diagnoses / Procedures [facility] To Contact XR [facility]AGING Diagnoses SOB (shortness of breath) Rib pain on left side Procedures XR RIBS/CHEST 3V AP RIB/OBLS/CXR LEFT RADEX RIBS UNI W/POSTEROANT CH MINIMUM 3 VIEWS Lizy Capone MD [address] [place] [address] [place] [address] Referral ID Status Reason Start Date Expiration Date V isits Requested Visits Authorized [id number] Closed Auto-Generate d Referral 07/16/2021 08/15/[address] 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 Advance Directive(s) 12/23/2016 7:30 PM Advance Directive(s) 05/22/2006 12:00 AM Advance Directive(s) 05/21/2006 12:00 AM Documents on File Type Date Recorded 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 Advance Directive(s) 12/23/2016 7:30 PM Advance Directive(s) 05/22/2006 12:00 AM Advance Directive(s) 05/21/2006 12:00 AM Advance Directive Response Recorded Date/ Time Advance Directives Yes April 15, 2016 10:57am Living Will Yes December 31, 2017 2:02pm Power of Pad Hand Yes December 2:02pm Documents on File Type Date Recorded 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 Advance Directive(s) 05/22/2006 Advance Directive(s) 05/21/2006 Documents on File Type Date Recorded 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 Advance Directive(s) 05/22/2006 Advance Directive(s) 05/21/2006 Advance Directive Response Recorded Date/ Time Advance Directives Yes December 7:36am Living Will Yes December 26, 2021 7:36am Power of Pad Hand Yes December 7:36am Advance Directive Response Recorded Date/ Time Advance Directives Yes December 6:36am Living Will Yes December 26, 2021 6:36am Power of Pad Hand Yes December 6:36am Advance Directive Response Recorded Date/ Time Advance Directives on File Yes August 01, 2022 7:31am Name of Medical Power of Pad Hand Connor Matthew August 01, 2022 7:31am Advance Directives Yes August 01, 2 023 7:31am Living Will Yes August 01, 2022 7:31am Power of Pad Hand Yes August 01 7:31am Advance Directive Response Recorded Date/ Time Advance Directives Yes August 01, 2 023 6:31am Living Will Yes June 07, 2023 9:40pm Power of Pad Hand Yes June 06 9:40pm Name of Medical Power of Pad Hand alex rodgers June 07, 2023 9:40pm Advance Directive Response Recorded Date/ Time Name of Medical Power of Pad Hand alexreggie bellgonzalo key June 08, 2023 1:28am Advance Directives Yes August 01, 2 023 6:31am Living Will Yes June 08, 2023 1:28am Power of Pad Hand Yes June 07 1:28am Documents on File Type Date Recorded 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 No May 01, 2024 5:37pm Living Will Yes May 19 025 4:09pm Do you have a Healthcare Pow er of Pad Hand? Yes May 19, 2024 4:09pm Name of Medical Power of Pad Hand Katie Couadebayo pat May 19, 2024 4:09pm Advance Directives Yes August 01, 2 023 7:31am Advance Directive Response Recorded Date/ Time Living Will No May 01 5:37pm Do you have a Healthcare Pow er of Pad Hand? No May 01, 2024 5:37pm Living Will Yes May 19, 025 4:09pm Do you have a Healthcare Pow er of Pad Hand? Yes May 19, 2024 4:09pm Name of Medical Power of Pad Hand Katie Couadebayo pat May 19, 2024 4:09pm Do you have a Healthcare Pow er of Pad Hand? Yes July 29, 2024 3:00pm Name of Medical Power of Pad Hand Gonzalo July 29, 2024 3:00pm Advance Directives Yes August 01, 2 023 7:31am Advance Directive Response Recorded Date/ Time Living Will Yes May 19, 2 025 4:09pm Do you have a Healthcare Pow er of Pad Hand? Yes May 19, 2024 4:09pm Name of Medical Power of Pad Hand Katie Diazkristinneptali hernandez May 19, 2024 4:09pm Do you have a Healthcare Pow er of Pad Hand? Yes July 29, 2024 3:00pm Name of Medical Power of Pad Hand Gonzalo July 29, 2024 3:00pm Advance Directives Yes August 01, 2 023 7:31am Advance Directive Response Recorded Date/ Time Do you have a Healthcare Pow er of Pad Hand? Yes September 02, 2024 11:04am Living Will Yes May 19 025 4:09pm Do you have a Healthcare Pow er of Pad Hand? Yes May 19, 2024 4:09pm Name of Medical Power of Pad Hand Katie Diazadebayo pat May 19, 2024 4:09pm Do you have a Healthcare Pow er of Pad Hand? Yes July 29, 2024 3:00pm Name of Medical Power of Pad Hand Gonzalo July 29, 2024 3:00pm Advance Directives Yes August 01, 2 023 7:31am Advance Directive Response Recorded Date/ Time Do you have a Healthcare Pow er of Pad Hand? Yes September 02, 2024 11:04am Do you have a Healthcare Pow er of Pad Hand? No September 28, 2024 3:13pm Living Will Yes May 19 025 4:09pm Do you have a Healthcare Pow er of Pad Hand? Yes May 19, 2024 4:09pm Name of Medical Power of Pad Hand Katie Diazkristinneptali hernandez May 19, 2024 4:09pm Do you have a Healthcare Pow er of Pad Hand? Yes July 29, 2024 3:00pm Name of Medical Power of Pad Hand Gonzalo July 29, 2024 3:00pm Advance Directives Yes August 01, 2 023 7:31am Advance Directive Response Recorded Date/ Time Do you have a Healthcare Pow er of Pad Hand? Yes September 02, 2024 11:04am Do you have a Healthcare Pow er of Pad Hand? Yes September 28, 2024 10:04pm Name of Medical Power of Pad Hand Cayla Sawyer (Friend) September 28, 2024 10:04pm Living Will Yes February 13th, 2 025 4:09pm Do you have a Healthcare Pow er of Pad Hand? Yes May 19, 2024 4:09pm Name of Medical Power of Pad Hand Katie Aaron hernandez May 19, 2024 4:09pm Do you have a Healthcare Pow er of Pad Hand? Yes July 29, 2024 3:00pm Name of Medical Power of Pad Hand Gonzalo July 29, 2024 3:00pm Advance Directives Yes August 01, 2 023 7:31am Advance Directive Response Recorded Date/ Time Do you have a Healthcare Pow er of Pad Hand? Yes September 02, 2024 11:04am Do you have a Healthcare Pow er of Pad Hand? Yes September 28, 2024 10:04pm Name of Medical Power of Pad Hand Cayla Sawyer (Friend) September 28, 2024 10:04pm Do you have a Healthcare Pow er of Pad Hand? Yes October 05, 2024 6:53pm Name of Medical Power of Pad Hand keven Collazo on October 05, 2024 6:53pm Do you have a Healthcare Pow er of Pad Hand? Yes October 12, 2024 2:03pm Do you have a Healthcare Pow er of Pad Hand? Yes July 29, 2024 3:00pm Name of Medical Power of Pad Hand Gonzalo July 29, 2024 3:00pm Advance Directives Yes August 01, 2 023 7:31am Advance Directive Response Recorded Date/ Time Do you have a Healthcare Pow er of Pad Hand? Yes September 02, 2024 11:04am Do you have a Healthcare Pow er of Pad Hand? Yes September 28, 2024 10:04pm Name of Medical Power of Pad Hand Cayla Sawyer (Friend) September 28, 2024 10:04pm Do you have a Healthcare Pow er of Pad Hand? Yes October 05, 2024 6:53pm Name of Medical Power of Pad Hand Gonzalo Lopez, sruthi October 05, 2024 6:53pm Do you have a Healthcare Pow er of Pad Hand? Yes October 12, 2024 2:03pm Do you have a Healthcare Pow er of Pad Hand? Yes October 26, 2024 10:10am Name of Medical Power of Pad Hand stephanie sawyer- friend and son October 26, 2024 10:10am Do you have a Healthcare Pow er of Pad Hand? Yes July 29, 2024 3:00pm Name of Medical Power of Pad Hand Gonzalo July 29, 2024 3:00pm Advance Directives Yes August 01, 2 023 7:31am Advance Directive Response Recorded Date/ Time Do you have a Healthcare Pow er of Pad Hand? Yes September 02, 2024 11:04am Do you have a Healthcare Pow er of Pad Hand? Yes September 28, 2024 10:04pm Name of Medical Power of Pad Hand Cayla Silverio (Friend) September 28, 2024 10:04pm Do you have a Healthcare Pow er of Pad Hand? Yes October 05, 2024 6:53pm Name of Medical Power of Pad Hand Gonzalo Lopez, sruthi October 05, 2024 6:53pm Do you have a Healthcare Pow er of Pad Hand? Yes October 12, 2024 2:03pm Do you have a Healthcare Pow er of Pad Hand? Yes October 26, 2024 10:10am Name of Medical Power of Pad Hand stephanie sawyer- friend and son October 26, 2024 10:10am Do you have a Healthcare Pow er of Pad Hand? Yes October 29, 2024 3:40am Do you have a Healthcare Pow er of Pad Hand? Yes July 29, 2024 3:00pm Name of Medical Power of Pad Hand Gonzalo July 29, 2024 3:00pm Advance Directives Yes August 01, 2 023 7:31am Advance Directive Response Recorded Date/ Time Do you have a Healthcare Pow er of Pad Hand? Yes September 02, 2024 11:04am Do you have a Healthcare Pow er of Pad Hand? Yes September 28, 2024 10:04pm Name of Medical Power of Pad Hand Cayla Silverio (Friend) September 28, 2024 10:04pm Do you have a Healthcare Pow er of Pad Hand? Yes October 05, 2024 6:53pm Name of Medical Power of Pad Hand Gonzalo Lopez, sruthi October 05, 2024 6:53pm Do you have a Healthcare Pow er of Pad Hand? Yes October 12, 2024 2:03pm Do you have a Healthcare Pow er of Pad Hand? Yes October 26, 2024 10:10am Name of Medical Power of Pad Hand stephanie sawyer- friend and son October 26, 2024 10:10am Do you have a Healthcare Pow er of Pad Hand? Yes October 29, 2024 6:34am Do you have a Healthcare Pow er of Pad Hand? Yes July 29, 2024 3:00pm Name of Medical Power of Pad Hand Gonzalo July 29, 2024 3:00pm Advance Directives Yes August 01, 2 023 7:31am Reason for Referral Specialty Diagnoses / Procedures Referred By Contac t Referred To Contact CT IMAGING Diagnoses Left upper quadrant abdominal pain Procedures CT ABD/PEL WO IVCON CT ABD & PELVIS W/O CONTRAST Lizy Capone MD [address] [place] [address] Ct Imaging Referral ID Status Reason Start Date Expiration Date Visits Requested Visits Authorized [id number] Authorized Auto-Generat ed Referral 07/18/2021 08/17/2022 1 1 Referral ID Status Reason Start Date Expiration Date V isits Requested Visits Authorized [id number] Closed Auto-Generate d Referral 07/18/2021 08/17/2022 1 1 Specialty Diagnoses / Procedures Referred By Contac t Referred To Contact Pain Management Diagnoses Rib pain on left side Procedures CONSULT TO PAIN MGT OFFICE/OUTPATIENT [facility] 60-74 MINUTES Lizy Capone MD [facility] [place] [address] Referral ID Status Reason Start Date Expiration Date Visits Requested Visits Authorized [id number] Authorized PCP Requested Referral 08/01/2021 08/01/2022 1 1 Specialty Diagnoses / Procedures Referred By Contac t Referred To Contact [facility] Diagnoses Lymphedema Procedures CONSULT TO LYMPHEDEMA THERAPY OFFICE/OUTPATIENT [facility] 60-74 MINUTES Lizy Capone MD [address] [place] [address] [facility] [address] [place] [address] Referral ID Status Reason Start Date Expiration Date Visits Requested Visits Authorized [id number] Authorized Auto-Generat ed Referral 11/13/2021 11/13/2022 99 99 Specialty Diagnoses / Procedures Referred By Contac t Referred To Contact [facility] Diagnoses Lymphedema Procedures CONSULT TO PHYSICAL THERAPY PHYSICAL THERAPY EVALUATION HIGH COMPLEX 45 MINS Lizy Capone MD [address] [place] [address] [facility] [address] [place] [address] Referral ID Status Reason Start Date Expiration Date Visits Requested Visits Authorized [id number] Authorized PCP Requested Referral Auto-Generate d Referral 11/13/2021 11/13/2022 99 99 Specialty Diagnoses / Procedures Referred By Contac t Referred To Contact Nephrology Diagnoses Function kidney decreased Procedures CONSULT TO NEPHROLOGY OFFICE/OUTPATIENT [facility] MDM 60-74 MINUTES Miryam Orozco APRN.MRI MANAGER [address] [place] [address] Referral ID Status Reason Start Date Expiration Date Visits Requested Visits Authorized [id number] Authorized PCP Requested Referral 01/02/2022 01/02/2023 1 1 Specialty Diagnoses / Procedures Referred By Contac t Referred To Contact US IMAGING Diagnoses Abdominal distension Procedures US ABDOMEN COMPLETE US ABDOMINAL REAL TIME W/IMAGE DOCUMENTATION Miryam Orozco APRN.MRI MANAGER [address] [place] [address] [facility] Referral ID Status Reason Start Date Expiration Date Visits Requested Visits Authorized [id number] Authorized Auto-Generat ed Referral 01/02/2022 02/01/2023 1 1 Specialty Diagnoses / Procedures Referred By Contac t Referred To Contact Urology Diagnoses Female stress incontinence Procedures CONSULT TO UROLOGY OFFICE/OUTPATIENT [facility] MDM 60-74 MINUTES Miryam Orozco APRN.MRI MANAGER [address] [place] [address] Referral ID Status Reason Start Date Expiration Date Visits Requested Visits Authorized [id number] Authorized PCP Requested Referral 06/26/2022 06/26/2023 1 1 Specialty Diagnoses / Procedures Referred By Contac t Referred To Contact Nephrology Diagnoses Decreased glomerular filtration rate (GFR) Procedures CONSULT TO NEPHROLOGY OFFICE/OUTPATIENT [facility] MDM 60-74 MINUTES Miryam Orozco APRN.MRI MANAGER [address] [place] [address] Referral ID Status Reason Start Date Expiration Date Visits Requested Visits Authorized [id number] Authorized PCP Requested Referral 12/24/2022 12/24/2023 1 1 Specialty Diagnoses / Procedures Referred By Contac t Referred To Contact MR IMAGING Diagnoses Thoracic spine pain Chronic midline thoracic back pain Procedures MRI THORACIC SPINE WO IVCON MRI SPINAL CANAL THORACIC W/O CONTRAST MATRL Avis Marrufo, BUSINESS OFFICE TECHNOLOGY INSTRUCTOR.MRI MANAGER [address] [place] [address] [place] [address] Referral ID Status Reason Start Date Expiration Date V isits Requested Visits Authorized [id number] Closed Auto-Generate d Referral 04/03/2022 05/03/2023 1 1 Specialty Diagnoses / Procedures Referred By Contac t Referred To Contact MR IMAGING Diagnoses Lumbar spondylosis Spinal stenosis of lumbar region without neurogenic claudication Procedures MRI LUMBAR SPINE WO IVCON MRI SPINAL CANAL LUMBAR W/O CONTRAST MATERIAL GreerAvis kee , BUSINESS OFFICE TECHNOLOGY INSTRUCTOR.MRI MANAGER [address] [place] [address] [place] [address] Referral ID Status Reason Start Date Expiration Date V isits Requested Visits Authorized [id number] Closed Auto-Generate d Referral 04/03/2022 05/03/2023 1 1 Specialty Diagnoses / Procedures Referred By Contac t Referred To Contact [facility] Diagnoses Falls Balance problem Procedures CONSULT TO PHYSICAL THERAPY PHYSICAL THERAPY EVALUATION HIGH COMPLEX 45 MINS Miryam Orozco, BUSINESS OFFICE TECHNOLOGY INSTRUCTOR.MRI MANAGER [address] [place] [address] [facility] [address] [place] [address] Referral ID Status Reason Start Date Expiration Date Visits Requested Visits Authorized [id number] Authorized PCP Requested Referral Auto-Generate d Referral 12/14/2023 12/13/2024 99 99 Specialty Diagnoses / Procedures Referred By Contac t Referred To Contact Orthopedics Diagnoses Primary osteoarthritis of both shoulders Procedures CONSULT TO ORTHOPAEDICS OFFICE/OUTPATIENT [facility] MDM 60 MINUTES Roque Delgado MD [address] [address] Referral ID Status Reason Start Date Expiration Date Visits Requested Visits Authorized [id number] Authorized PCP Requested Referral 12/17/2023 12/16/2024 1 [...] INT LABS Amb Documentation 2 ORDERING LISA/DR MANUEL [place] ORDER Reason for Visit Chronic acquired lym phedema Swelling of left lower extremity Chronic acquired lymphedema Dyspnea on minimal exertion Essential (primary) hypertension Chief Complaint soft tisssue disorde rs SOFT TISSUE DISORDER cellulitis/swelling legs EORDERS Congestive heart failure INT LABS Amb Documentation 2 ORDERING MAGDALENA York ORDER 6 M FU URINE SAMPLE Reason for Visit Chronic acquired lym phedema Swelling of left lower extremity Chronic acquired lymphedema Dyspnea on minimal exertion Essential (primary) hypertension (HFpEF) heart failure with preserved ejection fraction Essential (primary) hypertension Chief Complaint INT LABS Amb Documentation 2 ORDERING MAGDALENA York ORDER 6 M FU URINE SAMPLE DUE AROUND DATE LISTED PER ORDER Reason for Visit (HFpEF) heart failur e with preserved ejection fraction Essential (primary) hypertension Chief Complaint 2 ORDERING LIZZIE E ORDER 6 M FU URINE SAMPLE [...] HFPEF CP, HFPEF 3 m fu W FLOAT REMOVER PER FLOAT REMOVER Reason for Visit Chest pain (HFpEF) heart failure with preserved ejection fraction Essential (primary) hypertension (HFpEF) heart failure with preserved ejection fraction Chief Complaint SEVERE CONSTIPATION AND JOSE Reason for Visit Constipation Acute kidney injury superimposed on chronic kidney disease Chief Complaint SEVERE CONSTIPATION AND JOSE SEVERE CONSTIPATION AND OJSE SEVERE CONSTIPATION AND JOSE Reason for Visit [...] July 04, 2024 5:0 0am LAB WORK Denise 7th, 2025 4:00 am LABWORK July 18, 2024 5:0 [...] 7:11pm Pyelonephritis due to Escherichia coli F [email or web address] 7:11pm Septic shock May 18, 2024 7:11pm [...] 7:11pm Acute on chronic anemia May 18, 7:11pm Acute hyperkalemia May 18, 2024 7:11pm [...] m DVT (deep venous thrombosis) October 04, 2 025 2:29pm Essential (primary) hypertension October 2:29pm GERD [...] LAB WORK August 22, 2024 4:00a m RLGbae LOMAX REFERRED August 22, 2024 11 :46am [...] m DVT (deep venous thrombosis) October 04, 025 2:29pm Essential (primary) hypertension October 2:29pm GERD [...] [facility]AX REFERRED October 10, 2024 1: 41pm RLGabe LOMAX REFERRED October 10, 2024 3: 00pm [...] REFERRED September 20, 2024 9 :02am ENCEPHALOPATHY, 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, HYPERKALEMIA September 28, 2024 8:00pm [...] REFERRED October 25, 2024 9 :35am S/P [facility] 10/21October 25, 2024 2:12 pm Reason for [...] October 2:29pm GERD (gastroesophageal reflux disease) J [email or web address] 2:29pm Hyperlipidemia October 04, 2024 2:29p m [...] LAB WORK August 22, 2024 4:00a m RLGaeb LOMAX REFERRED August 22, 2024 11 :46am [...] 2:29pm RLGabe LOMAX REFERRED October 10, 2024 3: 00pm SWELLING October 11, 2024 9:44a m n/v October 12, 2024 1:34p m RLE- DR LOMAX REFERRED October 24, 2024 9 :15am RLE- DR LOMAX REFERRED October 25, 2024 9 :35am S/P [facility] 10/21October 25, 2024 2:12 pm LOWER EXTREMITY [...] m DVT (deep venous thrombosis) October 04, 2 025 2:29pm Essential (primary) hypertension October 2:29pm GERD [...] eje ction fraction October 25, 2024 2:12pm Chief Complaint Admit Date LAB WORK July [...] LOMAX REFERRED September 19, 2024 2 :00pm RLEMarco LOMAX REFERRED September 20, 2024 9 :02am [...] [facility]AX REFERRED October 24, 2024 9 :15am RLE- DR LOMAX REFERRED October 25, 2024 9 :35am S/P [facility] 10/21October 25, 2024 2:12 pm LOWER EXTREMITY October 26, 2024 10:0 0am CHF EXACERBATION, DEBILITY October 29 5:34am CHF EXACERBATION, DEBILITY October 29 5:45am Reason for Visit Admit Date Hematoma of [...] October 2:29pm GERD (gastroesophageal reflux disease) J [email or web address] 2:29pm Hyperlipidemia October 04, 2024 2:29p m [...] eje ction fraction October 25, 2024 2:12pm (HFpEF) heart failure with preserved eje ction fraction October 29, 2024 5:34am Debility October 29, 2024 5:34 am Open leg wound October 29, 2024 5:34 am Tremulousness October 29, 2024 5:34 am Chief Complaint Admit Date LAB WORK July [...] LOMAX REFERRED October 24, 2024 9 :15am RLGabe LOAMX REFERRED October 25, 2024 9 :35am S/P H 10/21October 25, 2024 2:12 pm LOWER EXTREMITY October 26, 2024 10:0 0am CHF EXACERBATION, DEBILITY October 29 5:34am CHF EXACERBATION, DEBILITY October 29 5:45am CHF EXACERBATION, DEBILITY October 30 9:05am CHF EXACERBATION, DEBILITY October 31 8:23am CHF EXACERBATION, DEBILITY November 01 9:03am Chief Complaint Admit Date LAB WORK July 11, 2024 4:00 am [...] LOMAX REFERRED August 22, 2024 11 :46am FOLLOW UP VISIT August 23, 2024 1:26p m MARCOS LOMAX REFERRED September 01, 2024 2: 45pm MARCOS OLMAX REFERRED September 01, 2024 3: 12pm Seizure [...] [facility]OMAX REFERRED October 24, 2024 9 :15am RLGabe LOMAX REFERRED October 25, 2024 9 :35am S/P [facility] 10/21October 25, 2024 2:12 pm LOWER EXTREMITY October 26, 2024 10:0 0am CHF EXACERBATION, DEBILITY October 29 5:34am CHF EXACERBATION, DEBILITY October 29 5:45am CHF EXACERBATION, DEBILITY October 30 9:05am CHF EXACERBATION, DEBILITY October 31 8:23am CHF EXACERBATION, DEBILITY November 01 9:03am Reason for Visit Admit Date Hematoma of [...] (urinary tract infection) September 28, 2024 8:00pm Appetite loss October 04, 2024 2:29p m [...] October 2:29pm GERD (gastroesophageal reflux disease) J [email or web address] 2:29pm Hyperlipidemia October 04, 2024 2:29p m Hypothyroidism October 04, 2024 2:29p m Insomnia October 04, 2024 2:29p m Iron deficiency anemia October 04, 2024 2: 29pm Left knee pain October 04, 2024 2:29p m Lymphedema October 04, 2024 2:29p m Obstructive sleep apnea October 04, 2024 2 :29pm (HFpEF) heart failure with preserved eje ction fraction October 04, 2024 2:29pm Hyperkalemia October 04, 2024 2:29p m Metabolic [...] eje ction fraction October 25, 2024 2:12pm Debility October 29, 2024 5:34 am Open leg wound October 29, 2024 5:34 am (HFpEF) heart failure with preserved eje ction fraction October 29, 2024 5:34am Tremulousness October 29, 2024 5:34 am Chief Complaint Admit Date LAB WORK July 11, 2024 4:00 am LABWORK July 18, 2024 5:0 0am NEW CONCERN July 20, 2024 5:4 2pm LABWORK July 25, 2024 5:0 0am wound July 29, 2024 2:5 1pm LAB WORK August 01, 2024 4:0 0am NEW CONCERN August 01, 2024 5:2 8pm LABWORK August 08, 2024 5:00am HEMATOMA August 12, 2024 1:02pm RLGabe LOMAX REFERRED August 15, 2024 8: 41am LABWORK August 16, 2024 5:00a m LABWORK August 18, 2024 5:00a m LAB WORK August 22, 2024 4:00a m RLGabe LOMAX REFERRED August 22, 2024 11 :46am FOLLOW UP VISIT August 23, 2024 1:26p m MARCOS LOMAX REFERRED September 01, 2024 2: [...] LOMAX REFERRED October 24, 2024 9 :15am RLGabe LOMAX REFERRED October 25, 2024 9 :35am S/P [facility] /October 25, 2024 2:12 pm LOWER EXTREMITY October 26, 2024 10:0 0am CHF EXACERBATION, DEBILITY October 29 5:34am CHF EXACERBATION, DEBILITY October 29 5:45am CHF EXACERBATION, DEBILITY October 30 9:05am CHF EXACERBATION, DEBILITY October 31 8:23am CHF EXACERBATION, DEBILITY November 01 9:03am Chief Complaint Admit Date LABWORK July 18, 2024 5:0 0am NEW CONCERN July 20, 2024 5:4 2pm LABWORK July 25, 2024 5:0 0am wound July 29, 2024 2:5 1pm LAB WORK August 01, 2024 4:0 0am NEW CONCERN August 01, 2024 5:2 8pm LABWORK August 08, 2024 5:00am HEMATOMA August 12, 2024 1:02pm RLE- DR LOMAX REFERRED August 15, 2024 8: 41am LABWORK August 16, 2024 5:00a m LABWORK August 18, 2024 5:00a m LAB WORK August 22, 2024 4:00a m RLGabe LOMAX REFERRED August 22, 2024 11 :46am FOLLOW UP VISIT August 23, 2024 1:26p m MARCOS LOMAX REFERRED September 01, 2024 2: [...] CKD, HYPERKALEMIA October 01, 2024 10:30am ENCEPHALOPATHY, JSOE ON CKD, HYPERKALEMIA October 02, 2024 1:11pm [...] LOMAX REFERRED October 24, 2024 9 :15am RLE- DR LOMAX REFERRED October 25, 2024 9 :35am S/P [facility] 10/21October 25, 2024 2:12 pm LOWER EXTREMITY October 26, 2024 10:0 0am CHF EXACERBATION, DEBILITY October 29 5:34am CHF EXACERBATION, DEBILITY October 29 5:45am CHF EXACERBATION, DEBILITY October 30 9:05am CHF EXACERBATION, DEBILITY October 31 8:23am CHF EXACERBATION, DEBILITY November 01 9:03am MED & UTI F/U November 11, 2024 2:4 9pm Reason for Visit Admit Date Hematoma of [...] (urinary tract infection) September 28, 2024 8:00pm Appetite loss October 04, 2024 2:29p m Atrial fibrillation October 04, 2024 2:29p m Bilateral knee pain October 04, 2024 2:29p m BMI 45.0-49.9, adult October 04, 2024 2:29 pm Chronic renal failure (CRF), stage 4 (se nils) October 04, 2024 2:29pm Coronary artery disease October 04, 2024 2 :29pm Debility October 04, 2024 2:29p m DVT (deep venous thrombosis) October 04, 025 2:29pm Essential (primary) hypertension October 2:29pm GERD (gastroesophageal reflux disease) J [email or web address] 2:29pm Hyperlipidemia October 04, 2024 2:29p m Hypothyroidism October 04, 2024 2:29p m Insomnia October 04, 2024 2:29p m Iron deficiency anemia October 04, 2024 2: 29pm Left knee pain October 04, 2024 2:29p m Lymphedema October 04, 2024 2:29p m Obstructive sleep apnea October 04, 2024 2 :29pm (HFpEF) heart failure with preserved eje ction fraction October 04, 2024 2:29pm Hyperkalemia October 04, 2024 2:29p m Metabolic [...] eje ction fraction October 25, 2024 2:12pm Debility October 29, 2024 5:34 am Open leg wound October 29, 2024 5:34 am (HFpEF) heart failure with preserved eje ction fraction October 29, 2024 5:34am Tremulousness October 29, 2024 5:34 am UTI (urinary tract infection) November 2:49pm Health Concerns Infection Onset Date Last Indicated [...] dose, On Thu07/30/22 at 0800 Given by [facility] 07/30/2022 2:18 PM EDT 100 mg Inactive Administered Medications - up to 3 most recent administrations Medication Order MAR Action Action Date Dose Rate Site lidocaine (PF) 10 mg/mL (1 %) 100 mg injection (XYLOCAINE) 100 mg, OTHER, ONCE, 1 dose, On Thu08/13/22 at 1430 Given by [facility] 08/13/2022 2:54 PM EDT 100 mg Inactive Administered Medications - up to 3 most recent administrations Medication Order MAR Action Action Date Dose Rate Site iohexol 300 mg IV injection (OMNIPAQUE 300) 300 mg, OTHER, ONCE, 1 dose, On Thu02/16/23 at 1100 Given by [facility] 02/16/2023 11:51 AM EST 300 mg lidocaine (PF) 10 mg/mL (1 %) 100 mg injection (XYLOCAINE) 100 mg, OTHER, ONCE, 1 dose, On Thu02/16/23 at 1100 Given by [facility] 02/16/2023 11:50 AM EST 100 mg lidocaine (PF) 20 mg/mL (2 %) 200 mg injection (XYLOCAINE) 200 mg, OTHER, ONCE, 1 dose, On Thu02/16/23 at 1100 Given by [facility] 02/16/2023 11:51 AM EST 200 mg methylPREDNISolone acetate 40 mg injection (DEPO-Medrol) 40 mg, OTHER, ONCE, 1 dose, On Thu02/16/23 at 1100 Given by [facility] 02/16/2023 11:52 AM EST 80 mg Summary Purpose Family History Relationship Condition Age at Onset Recorded Date/T yrn Not Specified Malignant neoplasm of uterus Unknown mother Malignant neoplasm Unknown No Family History Records Found Additional Source Comments Source Comments (unrecognize d section and content) In the event this informatio n is protected by the Federal Confidentiality of Alcohol and Drug Abuse Patient Records regulations: The Federal rules restrict any use of the information to criminally investigate or prosecute any alcohol or drug abuse patient.[facility] the event this information is protected by the Federal Confidentiality of Alcohol and Drug Abuse Patient Records regulations: The Federal rules restrict any use of the information to criminally investigate or prosecute any alcohol or drug abuse patient.[facility] the event this information is protected by the Federal Confidentiality of Alcohol and Drug Abuse Patient Records regulations: The Federal rules restrict any use of the information to criminally investigate or prosecute any alcohol or drug abuse patient.[facility] the event this information is protected by the Federal Confidentiality of Alcohol and Drug Abuse Patient Records regulations: The Federal rules restrict any use of the information to criminally investigate or prosecute any alcohol or drug abuse patient.[facility] the event this information is protected by the Federal Confidentiality of Alcohol and Drug Abuse Patient Records regulations: The Federal rules restrict any use of the information to criminally investigate or prosecute any alcohol or drug abuse patient.[facility] the event this information is protected by the Federal Confidentiality of Alcohol and Drug Abuse Patient Records regulations: The Federal rules restrict any use of the information to criminally investigate or prosecute any alcohol or drug abuse patient.[facility] the event this information is protected by the Federal Confidentiality of Alcohol and Drug Abuse Patient Records regulations: The Federal rules restrict any use of the information to criminally investigate or prosecute any alcohol or drug abuse patient.[facility] the event this information is protected by the Federal Confidentiality of Alcohol and Drug Abuse Patient Records regulations: The Federal rules restrict any use of the information to criminally investigate or prosecute any alcohol or drug abuse patient.[facility] the event this information is protected by the Federal Confidentiality of Alcohol and Drug Abuse Patient Records regulations: The Federal rules restrict any use of the information to criminally investigate or prosecute any alcohol or drug abuse patient.[facility] the event this information is protected by the Federal Confidentiality of Alcohol and Drug Abuse Patient Records regulations: The Federal rules restrict any use of the information to criminally investigate or prosecute any alcohol or drug abuse patient.[facility]In the event this information is protected by the Federal Confidentiality of Alcohol and Drug Abuse Patient Records regulations: The Federal rules restrict any use of the information to criminally investigate or prosecute any alcohol or drug abuse patient.[facility]In the event this information is protected by the Federal Confidentiality of Alcohol and Drug Abuse Patient Records regulations: The Federal rules restrict any use of the information to criminally investigate or prosecute any alcohol or drug abuse patient.[facility]In the event this information is protected by the Federal Confidentiality of Alcohol and Drug Abuse Patient Records regulations: The Federal rules restrict any use of the information to criminally investigate or prosecute any alcohol or drug abuse patient.[facility]In the event this information is protected by the Federal Confidentiality of Alcohol and Drug Abuse Patient Records regulations: The Federal rules restrict any use of the information to criminally investigate or prosecute any alcohol or drug abuse patient.[facility]In the event this information is protected by the Federal Confidentiality of Alcohol and Drug Abuse Patient Records regulations: The Federal rules restrict any use of the information to criminally investigate or prosecute any alcohol or drug abuse patient.[facility]In the event this information is protected by the Federal Confidentiality of Alcohol and Drug Abuse Patient Records regulations: The Federal rules restrict any use of the information to criminally investigate or prosecute any alcohol or drug abuse patient.[facility]In the event this information is protected by the Federal Confidentiality of Alcohol and Drug Abuse Patient Records regulations: The Federal rules restrict any use of the information to criminally investigate or prosecute any alcohol or drug abuse patient.[facility]In the event this information is protected by the Federal Confidentiality of Alcohol and Drug Abuse Patient Records regulations: The Federal rules restrict any use of the information to criminally investigate or prosecute any alcohol or drug abuse patient.[facility]In the event this information is protected by the Federal Confidentiality of Alcohol and Drug Abuse Patient Records regulations: The Federal rules restrict any use of the information to criminally investigate or prosecute any alcohol or drug abuse patient.[facility]In the event this information is protected by the Federal Confidentiality of Alcohol and Drug Abuse Patient Records regulations: The Federal rules restrict any use of the information to criminally investigate or prosecute any alcohol or drug abuse patient.[facility]In the event this information is protected by the Federal Confidentiality of Alcohol and Drug Abuse Patient Records regulations: The Federal rules restrict any use of the information to criminally investigate or prosecute any alcohol or drug abuse patient.[facility]In the event this information is protected by the Federal Confidentiality of Alcohol and Drug Abuse Patient Records regulations: The Federal rules restrict any use of the information to criminally investigate or prosecute any alcohol or drug abuse patient.[facility]In the event this information is protected by the Federal Confidentiality of Alcohol and Drug Abuse Patient Records regulations: The Federal rules restrict any use of the information to criminally investigate or prosecute any alcohol or drug abuse patient.[facility]In the event this information is protected by the Federal Confidentiality of Alcohol and Drug Abuse Patient Records regulations: The Federal rules restrict any use of the information to criminally investigate or prosecute any alcohol or drug abuse patient.[facility]In the event this information is protected by the Federal Confidentiality of Alcohol and Drug Abuse Patient Records regulations: The Federal rules restrict any use of the information to criminally investigate or prosecute any alcohol or drug abuse patient.[facility]In the event this information is protected by the Federal Confidentiality of Alcohol and Drug Abuse Patient Records regulations: The Federal rules restrict any use of the information to criminally investigate or prosecute any alcohol or drug abuse patient.[facility]In the event this information is protected by the Federal Confidentiality of Alcohol and Drug Abuse Patient Records regulations: The Federal rules restrict any use of the information to criminally investigate or prosecute any alcohol or drug abuse patient.[facility]In the event this information is protected by the Federal Confidentiality of Alcohol and Drug Abuse Patient Records regulations: The Federal rules restrict any use of the information to criminally investigate or prosecute any alcohol or drug abuse patient.[facility] [facility]In the event this information is protected by the Federal Confidentiality of Alcohol and Drug Abuse Patient Records regulations: The Federal rules restrict any use of the information to criminally investigate or prosecute any alcohol or drug abuse patient.[facility]In the event this information is protected by the Federal Confidentiality of Alcohol and Drug Abuse Patient Records regulations: The Federal rules restrict any use of the information to criminally investigate or prosecute any alcohol or drug abuse patient.[facility]In the event this information is protected by the Federal Confidentiality of Alcohol and Drug Abuse Patient Records regulations: The Federal rules restrict any use of the information to criminally investigate or prosecute any alcohol or drug abuse patient.[facility]In the event this information is protected by the Federal Confidentiality of Alcohol and Drug Abuse Patient Records regulations: The Federal rules restrict any use of the information to criminally investigate or prosecute any alcohol or drug abuse patient.[facility]In the event this information is protected by the Federal Confidentiality of Alcohol and Drug Abuse Patient Records regulations: The Federal rules restrict any use of the information to criminally investigate or prosecute any alcohol or drug abuse patient.[facility]In the event this information is protected by the Federal Confidentiality of Alcohol and Drug Abuse Patient Records regulations: The Federal rules restrict any use of the information to criminally investigate or prosecute any alcohol or drug abuse patient.[facility]In the event this information is protected by the Federal Confidentiality of Alcohol and Drug Abuse Patient Records regulations: The Federal rules restrict any use of the information to criminally investigate or prosecute any alcohol or drug abuse patient.[facility]In the event this information is protected by the Federal Confidentiality of Alcohol and Drug Abuse Patient Records regulations: The Federal rules restrict any use of the information to criminally investigate or prosecute any alcohol or drug abuse patient.[facility]In the event this information is protected by the Federal Confidentiality of Alcohol and Drug Abuse Patient Records regulations: The Federal rules restrict any use of the information to criminally investigate or prosecute any alcohol or drug abuse patient.[facility]In the event this information is protected by the Federal Confidentiality of Alcohol and Drug Abuse Patient Records regulations: The Federal rules restrict any use of the information to criminally investigate or prosecute any alcohol or drug abuse patient.[facility]In the event this information is protected by the Federal Confidentiality of Alcohol and Drug Abuse Patient Records regulations: The Federal rules restrict any use of the information to criminally investigate or prosecute any alcohol or drug abuse patient.[facility]In the event this information is protected by the Federal Confidentiality of Alcohol and Drug Abuse Patient Records regulations: The Federal rules restrict any use of the information to criminally investigate or prosecute any alcohol or drug abuse patient.[facility]In the event this information is protected by the Federal Confidentiality of Alcohol and Drug Abuse Patient Records regulations: The Federal rules restrict any use of the information to criminally investigate or prosecute any alcohol or drug abuse patient.[facility]In the event this information is protected by the Federal Confidentiality of Alcohol and Drug Abuse Patient Records regulations: The Federal rules restrict any use of the information to criminally investigate or prosecute any alcohol or drug abuse patient.[facility]In the event this information is protected by the Federal Confidentiality of Alcohol and Drug Abuse Patient Records regulations: The Federal rules restrict any use of the information to criminally investigate or prosecute any alcohol or drug abuse patient.[facility]In the event this information is protected by the Federal Confidentiality of Alcohol and Drug Abuse Patient Records regulations: The Federal rules restrict any use of the information to criminally investigate or prosecute any alcohol or drug abuse patient.[facility] HospitalIn the event this information is protected by the Federal Confidentiality of Alcohol and Drug Abuse Patient Records regulations: The Federal rules restrict any use of the information to criminally investigate or prosecute any alcohol or drug abuse patient.[facility]In the event this information is protected by the Federal Confidentiality of Alcohol and Drug Abuse Patient Records regulations: The Federal rules restrict any use of the information to criminally investigate or prosecute any alcohol or drug abuse patient.[facility] HospitalIn the event this information is protected by the Federal Confidentiality of Alcohol and Drug Abuse Patient Records regulations: The Federal rules restrict any use of the information to criminally investigate or prosecute any alcohol or drug abuse patient.[facility] HospitalIn the event this information is protected by the Federal Confidentiality of Alcohol and Drug Abuse Patient Records regulations: The Federal rules restrict any use of the information to criminally investigate or prosecute any alcohol or drug abuse patient.[facility]In the event this information is protected by the Federal Confidentiality of Alcohol and Drug Abuse Patient Records regulations: The Federal rules restrict any use of the information to criminally investigate or prosecute any alcohol or drug abuse patient.[facility] HospitalIn the event this information is protected by the Federal Confidentiality of Alcohol and Drug Abuse Patient Records regulations: The Federal rules restrict any use of the information to criminally investigate or prosecute any alcohol or drug abuse patient.[facility]In the event this information is protected by the Federal Confidentiality of Alcohol and Drug Abuse Patient Records regulations: The Federal rules restrict any use of the information to criminally investigate or prosecute any alcohol or drug abuse patient.[facility]In the event this information is protected by the Federal Confidentiality of Alcohol and Drug Abuse Patient Records regulations: The Federal rules restrict any use of the information to criminally investigate or prosecute any alcohol or drug abuse patient.[facility] HospitalIn the event this information is protected by the Federal Confidentiality of Alcohol and Drug Abuse Patient Records regulations: The Federal rules restrict any use of the information to criminally investigate or prosecute any alcohol or drug abuse patient.[facility]In the event this information is protected by the Federal Confidentiality of Alcohol and Drug Abuse Patient Records regulations: The Federal rules restrict any use of the information to criminally investigate or prosecute any alcohol or drug abuse patient.[facility] HospitalIn the event this information is protected by the Federal Confidentiality of Alcohol and Drug Abuse Patient Records regulations: The Federal rules restrict any use of the information to criminally investigate or prosecute any alcohol or drug abuse patient.[facility] HospitalIn the event this information is protected by the Federal Confidentiality of Alcohol and Drug Abuse Patient Records regulations: The Federal rules restrict any use of the information to criminally investigate or prosecute any alcohol or drug abuse patient.[facility]In the event this information is protected by the Federal Confidentiality of Alcohol and Drug Abuse Patient Records regulations: The Federal rules restrict any use of the information to criminally investigate or prosecute any alcohol or drug abuse patient.[facility] HospitalIn the event this information is protected by the Federal Confidentiality of Alcohol and Drug Abuse Patient Records regulations: The Federal rules restrict any use of the information to criminally investigate or prosecute any alcohol or drug abuse patient.[facility] HospitalIn the event this information is protected by the Federal Confidentiality of Alcohol and Drug Abuse Patient Records regulations: The Federal rules restrict any use of the information to criminally investigate or prosecute any alcohol or drug abuse patient.[facility] HospitalIn the event this information is protected by the Federal Confidentiality of Alcohol and Drug Abuse Patient Records regulations: The Federal rules restrict any use of the information to criminally investigate or prosecute any alcohol or drug abuse patient.[facility] HospitalIn the event this information is protected by the Federal Confidentiality of Alcohol and Drug Abuse Patient Records regulations: The Federal rules restrict any use of the information to criminally investigate or prosecute any alcohol or drug abuse patient.[facility]In the event this information is protected by the Federal Confidentiality of Alcohol and Drug Abuse Patient Records regulations: The Federal rules restrict any use of the information to criminally investigate or prosecute any alcohol or drug abuse patient.[facility] HospitalIn the event this information is protected by the Federal Confidentiality of Alcohol and Drug Abuse Patient Records regulations: The Federal rules restrict any use of the information to criminally investigate or prosecute any alcohol or drug abuse patient.[facility]In the event this information is protected by the Federal Confidentiality of Alcohol and Drug Abuse Patient Records regulations: The Federal rules restrict any use of the information to criminally investigate or prosecute any alcohol or drug abuse patient.[facility] HospitalIn the event this information is protected by the Federal Confidentiality of Alcohol and Drug Abuse Patient Records regulations: The Federal rules restrict any use of the information to criminally investigate or prosecute any alcohol or drug abuse patient.[facility]In the event this information is protected by the Federal Confidentiality of Alcohol and Drug Abuse Patient Records regulations: The Federal rules restrict any use of the information to criminally investigate or prosecute any alcohol or drug abuse patient.[facility] HospitalIn the event this information is protected by the Federal Confidentiality of Alcohol and Drug Abuse Patient Records regulations: The Federal rules restrict any use of the information to criminally investigate or prosecute any alcohol or drug abuse patient.[facility]In the event this information is protected by the Federal Confidentiality of Alcohol and Drug Abuse Patient Records regulations: The Federal rules restrict any use of the information to criminally investigate or prosecute any alcohol or drug abuse patient.[facility] HospitalIn the event this information is protected by the Federal Confidentiality of Alcohol and Drug Abuse Patient Records regulations: The Federal rules restrict any use of the information to criminally investigate or prosecute any alcohol or drug abuse patient.[facility]In the event this information is protected by the Federal Confidentiality of Alcohol and Drug Abuse Patient Records regulations: The Federal rules restrict any use of the information to criminally investigate or prosecute any alcohol or drug abuse patient.[facility] HospitalIn the event this information is protected by the Federal Confidentiality of Alcohol and Drug Abuse Patient Records regulations: The Federal rules restrict any use of the information to criminally investigate or prosecute any alcohol or drug abuse patient.[facility]In the event this information is protected by the Federal Confidentiality of Alcohol and Drug Abuse Patient Records regulations: The Federal rules restrict any use of the information to criminally investigate or prosecute any alcohol or drug abuse patient.[facility] HospitalIn the event this information is protected by the Federal Confidentiality of Alcohol and Drug Abuse Patient Records regulations: The Federal rules restrict any use of the information to criminally investigate or prosecute any alcohol or drug abuse patient.[facility] HospitalIn the event this information is protected by the Federal Confidentiality of Alcohol and Drug Abuse Patient Records regulations: The Federal rules restrict any use of the information to criminally investigate or prosecute any alcohol or drug abuse patient.[facility] HospitalIn the event this information is protected by the Federal Confidentiality of Alcohol and Drug Abuse Patient Records regulations: The Federal rules restrict any use of the information to criminally investigate or prosecute any alcohol or drug abuse patient.[facility] HospitalIn the event this information is protected by the Federal Confidentiality of Alcohol and Drug Abuse Patient Records regulations: The Federal rules restrict any use of the information to criminally investigate or prosecute any alcohol or drug abuse patient.[facility] HospitalIn the event this information is protected by the Federal Confidentiality of Alcohol and Drug Abuse Patient Records regulations: The Federal rules restrict any use of the information to criminally investigate or prosecute any alcohol or drug abuse patient.[facility] HospitalIn the event this information is protected by the Federal Confidentiality of Alcohol and Drug Abuse Patient Records regulations: The Federal rules restrict any use of the information to criminally investigate or prosecute any alcohol or drug abuse patient.[facility] HospitalIn the event this information is protected by the Federal Confidentiality of Alcohol and Drug Abuse Patient Records regulations: The Federal rules restrict any use of the information to criminally investigate or prosecute any alcohol or drug abuse patient.[facility] HospitalIn the event this information is protected by the Federal Confidentiality of Alcohol and Drug Abuse Patient Records regulations: The Federal rules restrict any use of the information to criminally investigate or prosecute any alcohol or drug abuse patient.[facility]In the event this information is protected by the Federal Confidentiality of Alcohol and Drug Abuse Patient Records regulations: The Federal rules restrict any use of the information to criminally investigate or prosecute any alcohol or drug abuse patient.[facility]In the event this information is protected by the Federal Confidentiality of Alcohol and Drug Abuse Patient Records regulations: The Federal rules restrict any use of the information to criminally investigate or prosecute any alcohol or drug abuse patient.[facility]In the event this information is protected by the Federal Confidentiality of Alcohol and Drug Abuse Patient Records regulations: The Federal rules restrict any use of the information to criminally investigate or prosecute any alcohol or drug abuse patient.[facility] HospitalIn the event this information is protected by the Federal Confidentiality of Alcohol and Drug Abuse Patient Records regulations: The Federal rules restrict any use of the information to criminally investigate or prosecute any alcohol or drug abuse patient.[facility]In the event this information is protected by the Federal Confidentiality of Alcohol and Drug Abuse Patient Records regulations: The Federal rules restrict any use of the information to criminally investigate or prosecute any alcohol or drug abuse patient.[facility]In the event this information is protected by the Federal Confidentiality of Alcohol and Drug Abuse Patient Records regulations: The Federal rules restrict any use of the information to criminally investigate or prosecute any alcohol or drug abuse patient.[facility]In the event this information is protected by the Federal Confidentiality of Alcohol and Drug Abuse Patient Records regulations: The Federal rules restrict any use of the information to criminally investigate or prosecute any alcohol or drug abuse patient.[facility]In the event this information is protected by the Federal Confidentiality of Alcohol and Drug Abuse Patient Records regulations: The Federal rules restrict any use of the information to criminally investigate or prosecute any alcohol or drug abuse patient.[facility]In the event this information is protected by the Federal Confidentiality of Alcohol and Drug Abuse Patient Records regulations: The Federal rules restrict any use of the information to criminally investigate or prosecute any alcohol or drug abuse patient.[facility]In the event this information is protected by the Federal Confidentiality of Alcohol and Drug Abuse Patient Records regulations: The Federal rules restrict any use of the information to criminally investigate or prosecute any alcohol or drug abuse patient.[facility]In the event this information is protected by the Federal Confidentiality of Alcohol and Drug Abuse Patient Records regulations: The Federal rules restrict any use of the information to criminally investigate or prosecute any alcohol or drug abuse patient.[facility]In the event this information is protected by the Federal Confidentiality of Alcohol and Drug Abuse Patient Records regulations: The Federal rules restrict any use of the information to criminally investigate or prosecute any alcohol or drug abuse patient.[facility]In the event this information is protected by the Federal Confidentiality of Alcohol and Drug Abuse Patient Records regulations: The Federal rules restrict any use of the information to criminally investigate or prosecute any alcohol or drug abuse patient.[facility]In the event this information is protected by the Federal Confidentiality of Alcohol and Drug Abuse Patient Records regulations: The Federal rules restrict any use of the information to criminally investigate or prosecute any alcohol or drug abuse patient.[facility]In the event this information is protected by the Federal Confidentiality of Alcohol and Drug Abuse Patient Records regulations: The Federal rules restrict any use of the information to criminally investigate or prosecute any alcohol or drug abuse patient.[facility]In the event this information is protected by the Federal Confidentiality of Alcohol and Drug Abuse Patient Records regulations: The Federal rules restrict any use of the information to criminally investigate or prosecute any alcohol or drug abuse patient.[facility]In the event this information is protected by the Federal Confidentiality of Alcohol and Drug Abuse Patient Records regulations: The Federal rules restrict any use of the information to criminally investigate or prosecute any alcohol or drug abuse patient.[facility]In the event this information is protected by the Federal Confidentiality of Alcohol and Drug Abuse Patient Records regulations: The Federal rules restrict any use of the information to criminally investigate or prosecute any alcohol or drug abuse patient.[facility]In the event this information is protected by the Federal Confidentiality of Alcohol and Drug Abuse Patient Records regulations: The Federal rules restrict any use of the information to criminally investigate or prosecute any alcohol or drug abuse patient.[facility]In the event this information is protected by the Federal Confidentiality of Alcohol and Drug Abuse Patient Records regulations: The Federal rules restrict any use of the information to criminally investigate or prosecute any alcohol or drug abuse patient.[facility]In the event this information is protected by the Federal Confidentiality of Alcohol and Drug Abuse Patient Records regulations: The Federal rules restrict any use of the information to criminally investigate or prosecute any alcohol or drug abuse patient.[facility]In the event this information is protected by the Federal Confidentiality of Alcohol and Drug Abuse Patient Records regulations: The Federal rules restrict any use of the information to criminally investigate or prosecute any alcohol or drug abuse patient.[facility]In the event this information is protected by the Federal Confidentiality of Alcohol and Drug Abuse Patient Records regulations: The Federal rules restrict any use of the information to criminally investigate or prosecute any alcohol or drug abuse patient.[facility]In the event this information is protected by the Federal Confidentiality of Alcohol and Drug Abuse Patient Records regulations: The Federal rules restrict any use of the information to criminally investigate or prosecute any alcohol or drug abuse patient.[facility]In the event this information is protected by the Federal Confidentiality of Alcohol and Drug Abuse Patient Records regulations: The Federal rules restrict any use of the information to criminally investigate or prosecute any alcohol or drug abuse patient.[facility]In the event this information is protected by the Federal Confidentiality of Alcohol and Drug Abuse Patient Records regulations: The Federal rules restrict any use of the information to criminally investigate or prosecute any alcohol or drug abuse patient.[facility]In the event this information is protected by the Federal Confidentiality of Alcohol and Drug Abuse Patient Records regulations: The Federal rules restrict any use of the information to criminally investigate or prosecute any alcohol or drug abuse patient.[facility]In the event this information is protected by the Federal Confidentiality of Alcohol and Drug Abuse Patient Records regulations: The Federal rules restrict any use of the information to criminally investigate or prosecute any alcohol or drug abuse patient.[facility]In the event this information is protected by the Federal Confidentiality of Alcohol and Drug Abuse Patient Records regulations: The Federal rules restrict any use of the information to criminally investigate or prosecute any alcohol or drug abuse patient.[facility]In the event this information is protected by the Federal Confidentiality of Alcohol and Drug Abuse Patient Records regulations: The Federal rules restrict any use of the information to criminally investigate or prosecute any alcohol or drug abuse patient.[facility]In the event this information is protected by the Federal Confidentiality of Alcohol and Drug Abuse Patient Records regulations: The Federal rules restrict any use of the information to criminally investigate or prosecute any alcohol or drug abuse patient.[facility]In the event this information is protected by the Federal Confidentiality of Alcohol and Drug Abuse Patient Records regulations: The Federal rules restrict any use of the information to criminally investigate or prosecute any alcohol or drug abuse patient.[facility]In the event this information is protected by the Federal Confidentiality of Alcohol and Drug Abuse Patient Records regulations: The Federal rules restrict any use of the information to criminally investigate or prosecute any alcohol or drug abuse patient.[facility]In the event this information is protected by the Federal Confidentiality of Alcohol and Drug Abuse Patient Records regulations: The Federal rules restrict any use of the information to criminally investigate or prosecute any alcohol or drug abuse patient.[facility]In the event this information is protected by the Federal Confidentiality of Alcohol and Drug Abuse Patient Records regulations: The Federal rules restrict any use of the information to criminally investigate or prosecute any alcohol or drug abuse patient.[facility]In the event this information is protected by the Federal Confidentiality of Alcohol and Drug Abuse Patient Records regulations: The Federal rules restrict any use of the information to criminally investigate or prosecute any alcohol or drug abuse patient.[facility] the event this information is protected by the Federal Confidentiality of Alcohol and Drug Abuse Patient Records regulations: The Federal rules restrict any use of the information to criminally investigate or prosecute any alcohol or drug abuse patient.[facility] HospitalIn the event this information is protected by the Federal Confidentiality of Alcohol and Drug Abuse Patient Records regulations: The Federal rules restrict any use of the information to criminally investigate or prosecute any alcohol or drug abuse patient.[facility]In the event this information is protected by the Federal Confidentiality of Alcohol and Drug Abuse Patient Records regulations: The Federal rules restrict any use of the information to criminally investigate or prosecute any alcohol or drug abuse patient.[facility]In the event this information is protected by the Federal Confidentiality of Alcohol and Drug Abuse Patient Records regulations: The Federal rules restrict any use of the information to criminally investigate or prosecute any alcohol or drug abuse patient.[facility]In the event this information is protected by the Federal Confidentiality of Alcohol and Drug Abuse Patient Records regulations: The Federal rules restrict any use of the information to criminally investigate or prosecute any alcohol or drug abuse patient.[facility]In the event this information is protected by the Federal Confidentiality of Alcohol and Drug Abuse Patient Records regulations: The Federal rules restrict any use of the information to criminally investigate or prosecute any alcohol or drug abuse patient.[facility] HospitalIn the event this information is protected by the Federal Confidentiality of Alcohol and Drug Abuse Patient Records regulations: The Federal rules restrict any use of the information to criminally investigate or prosecute any alcohol or drug abuse patient.[facility]In the event this information is protected by the Federal Confidentiality of Alcohol and Drug Abuse Patient Records regulations: The Federal rules restrict any use of the information to criminally investigate or prosecute any alcohol or drug abuse patient.[facility]In the event this information is protected by the Federal Confidentiality of Alcohol and Drug Abuse Patient Records regulations: The Federal rules restrict any use of the information to criminally investigate or prosecute any alcohol or drug abuse patient.[facility] HospitalIn the event this information is protected by the Federal Confidentiality of Alcohol and Drug Abuse Patient Records regulations: The Federal rules restrict any use of the information to criminally investigate or prosecute any alcohol or drug abuse patient.[facility] HospitalIn the event this information is protected by the Federal Confidentiality of Alcohol and Drug Abuse Patient Records regulations: The Federal rules restrict any use of the information to criminally investigate or prosecute any alcohol or drug abuse patient.[facility] HospitalIn the event this information is protected by the Federal Confidentiality of Alcohol and Drug Abuse Patient Records regulations: The Federal rules restrict any use of the information to criminally investigate or prosecute any alcohol or drug abuse patient.[facility] HospitalIn the event this information is protected by the Federal Confidentiality of Alcohol and Drug Abuse Patient Records regulations: The Federal rules restrict any use of the information to criminally investigate or prosecute any alcohol or drug abuse patient.[facility] HospitalIn the event this information is protected by the Federal Confidentiality of Alcohol and Drug Abuse Patient Records regulations: The Federal rules restrict any use of the information to criminally investigate or prosecute any alcohol or drug abuse patient.[facility] Reason for Visit (unrecogniz ed section and content) Reason Comments Procedure Specialty Diagnoses / Procedures Referred By Contyumiko t Referred To Contact Pain Management / PAIN MANAGEMENT Diagnoses Primary osteoarthritis, right shoulder Primary osteoarthritis, left shoulder Suprascapular Nerve Block with steroid infiltration under ultrasound guidance LEFT-SIDED, 81mg apsrin Procedures INJECTION AA&/STRD SUPRASCAPULAR NERVE PROCEDURE 20 Roque Delgado MD [address] [place] [address] Roque Delgado MD [address] [place] [address] Referral ID Status Reason Start Date Expiration Date Visits Re quested Visits Authorized [id number] Closed 04/06/2023 04/05/2024 1 1 Reason Comments Physical Therapy Specialty Diagnoses / Procedures Referred By Contac t Referred To Contact Physical Therapy / PHYSICAL THERAPY Diagnoses Lumbar spondylosis Thoracic spine pain Myofascial pain Procedures CONSULT TO PHYSICAL THERAPY Avis Marrufo, BUSINESS OFFICE TECHNOLOGY INSTRUCTOR.MRI MANAGER [address] [place] [address] Pt [facility] [address] [place] [address] Referral ID Status Reason Start Date Expiration Date V isits Requested Visits Authorized [id number] Authorized 04/06/2021 04/05/2022 99 99 Reason Comments PT Eval Reason Comments PT Discharge Reason Comments Recheck Reason Comments Results Reason Comments Radiology CT Specialty Diagnoses / Procedures Referred By Contac t Referred To Contact CT IMAGING Diagnoses Left upper quadrant abdominal pain Procedures CT ABD/PEL WO IVCON CT ABD & PELVIS W/O CONTRAST Lizy Capone MD [address] [place] [address] Ct Imaging Referral ID Status Reason Start Date Expiration Date V isits Requested Visits Authorized [id number] Closed Auto-Generate d Referral 07/18/2021 08/17/2022 1 [...] ADDITIONAL VERTEBRA [address] [place] [address] Referral ID Status Reason Start Date Expiration Date Visits Re quested Visits Authorized [id number] 1 1 Reason Comments Follow Up Reason Comments Acute Visit bilat leg swelling Reason Comments Faxed Referral Referral ID Status Reason Start Date Expiration Date Visits Re quested Visits Authorized [id number] 1 1 Reason Comments Results Labs Reason [...] bleeding Specialty Diagnoses / Procedures Referred By Kallie t Referred To Contact General Surgery Diagnoses Rectal bleeding Change in stool Procedures CONSULT TO GENERAL SURGERY OFFICE/OUTPATIENT NEW HIGH MDM 60-74 MINUTES Miryam Orozco, BUSINESS OFFICE TECHNOLOGY INSTRUCTOR.MRI MANAGER [address] [place] [address] Referral ID Status Reason Start Date Expiration Date V isits Requested Visits Authorized [id number] Closed PCP Requested Referral 04/21/2022 04/21/2023 1 [...] CANAL LUMBAR W/O CONTRAST MATERIAL Avis Marrufo, BUSINESS OFFICE TECHNOLOGY INSTRUCTOR.MRI MANAGER [address] [place] [address] [place] [address] Referral ID Status Reason Start Date Expiration Date V isits Requested Visits Authorized [id number] Closed Auto-Generate d Referral 04/03/2022 05/03/2023 1 [...] PROCEDURE 20 Roque Delgado MD [address] [address] Roque Delgado MD [address] [address] Referral ID Status Reason Start Date Expiration Date Visits Re quested Visits Authorized [id number] Closed 02/16/2023 05/17/2023 1 1 Reason Comments Follow Up Bilateral GHJ USI Reason Comments Follow-up Shoulder Pain Follow Up Left suprascapular n erve block Reason Onset Date Comments Refill Request 06/29/2023 Reason Comments Procedure rfa Pain (Shoulder Pain) left Specialty Diagnoses / Procedures Referred By Kalile t Referred To Contact Pain Management / PAIN MANAGEMENT Diagnoses Primary osteoarthritis, right shoulder Primary osteoarthritis, left shoulder Left shoulder RFA under fluro Procedures DSTRJ NEUROLYTIC AGENT OTHER PERIPHERAL NERVE PROCEDURE 20 Rebekah Bobo, BUSINESS OFFICE TECHNOLOGY INSTRUCTOR.MRI MANAGER [address] [place] [address] Roque Delgado MD [address] [address] Referral ID Status Reason Start Date Expiration Date V isits Requested Visits Authorized [id number] Pending Review 07/15/2023 10/13/2023 1 1 Reason Comments Returning Patient's Call Reason Onset Date Comments Refill Request 09/21/2023 Reason Onset Date Comments Refill Request 09/28/2023 Reason Comments Procedure Pain (Shoulder Pain) RFA Right suprascap ular Specialty Diagnoses / Procedures Referred By Kallie alejandra Referred To Contact Pain Management / PAIN MANAGEMENT Diagnoses Primary osteoarthritis, right shoulder Right RFA - suprascapular nerve w fluoro; 81mg asp Procedures INJECTION AA&/STRD SUPRASCAPULAR NERVE PROCEDURE 30 Thole, RYAN Ridley [address] [place] [address] Roque Delgado MD [address] [place] [address] Referral ID Status Reason Start Date Expiration Date V isits Requested Visits Authorized [id number] New Request 11/16/2023 02/14/2024 1 1 Reason Comments Discussion Reason Comments Follow Up RFA - no relief at a ll Pain (Shoulder Pain) Bilateral - right i s worse Knee Pain Bilateral - left is worse Reason Comments 6 Month Exam Reason Comments medical clearance form [facility] fo r shoulder surgery Reason Onset [...] Reason Comments Hospital F/U Reason Comments Orders Reason Comments Patient concern Reason Comments Referral for Pallitive care Reason Comments concerns for patient Care Teams (unrecognized sec tion and content) Rotary Driller Relationship Specialty Start Date End Date Lizy Capone MD [address] [place], [place] [id number] PCP - General 11/15/08 Rotary Driller Relationship Specialty Start Date End Date Lizy Capone MD [address] [place] [address] PCP - General 11/15/08 Rotary Driller Relationship Specialty Start Date End Date Lizy Capone MD [address] [place] [address] PCP - General 11/15/08 Rotary Driller Relationship Specialty Start Date End Date Lizy Capone MD [address] [place] [address] PCP - General 11/15/08 Rotary Driller Relationship Specialty Start Date End Date Lizy Capone MD [address] [place] [address] PCP - General 11/15/08 Rotary Driller Relationship Specialty Start Date End Date Lizy Capone MD [address] [place] [address] PCP - General 11/15/08 Rotary Driller Relationship Specialty Start Date End Date Lizy Capone MD [facility] [place] [address] PCP - General 11/15/08 Rotary Driller Relationship Specialty Start Date End Date Lizy Capone MD [facility] [place] [address] PCP - General 11/15/08 Rotary Driller Relationship Specialty Start Date End Date Lizy Capone MD [address] [place] [address] PCP - General 11/15/08 Rotary Driller Relationship Specialty Start Date End Date Lizy Capone MD [address] [place] [address] PCP - General 11/15/08 Rotary Driller Relationship Specialty Start Date End Date Lizy Capone MD [address] [place] [address] PCP - General 11/15/08 Rotary Driller Relationship Specialty Start Date End Date Lizy Capone MD [facility] [place] [address] PCP - General 11/15/08 Rotary Driller Relationship Specialty Start Date End Date Lizy Capone MD [address] [place] [address] PCP - General 11/15/08 Rotary Driller Relationship Specialty Start Date End Date Lizy Capone MD [address] [place] [address] PCP - General 11/15/08 Rotary Driller Relationship Specialty Start Date End Date Lizy Capone MD [address] [place] [address] PCP - General 11/15/08 Rotary Driller Relationship Specialty Start Date End Date Lizy Capone MD [facility] [place] [address] PCP - General 11/15/08 Rotary Driller Relationship Specialty Start Date End Date Lizy Capone MD [address] [place] [address] PCP - General 11/15/08 Rotary Driller Relationship Specialty Start Date End Date Lizy Capone MD [address] [place] [address] PCP - General 11/15/08 Rotary Driller Relationship Specialty Start Date End Date Lizy Capone MD [address] [place] [address] PCP - General 11/15/08 Rotary Driller Relationship Specialty Start Date End Date Lizy Capone MD [address] [place] [address] PCP - General 11/15/08 Rotary Driller Relationship Specialty Start Date End Date Lizy Capone MD [facility] [place] [address] PCP - General 11/15/08 Rotary Driller Relationship Specialty Start Date End Date Lizy Capone MD [address] [place] [address] PCP - General 11/15/08 Rotary Driller Relationship Specialty Start Date End Date Lizy Capone MD [address] [place] [address] PCP - General 11/15/08 Rotary Driller Relationship Specialty Start Date End Date Lizy Capone MD [address] [place] [address] PCP - General 11/15/08 Rotary Driller Relationship Specialty Start Date End Date Lizy Capone MD [address] [place] [address] PCP - General 11/15/08 Rotary Driller Relationship Specialty Start Date End Date Lizy Capone MD [address] [place] [place] [address] PCP - General 11/15/08 Rotary Driller Relationship Specialty Start Date End Date Lizy Capone MD [address] [facility] [place] [address] PCP - General 11/15/08 Rotary Driller Relationship Specialty Start Date End Date Lizy Capone MD [address] [place] [place] [address] PCP - General 11/15/08 Rotary Driller Relationship Specialty Start Date End Date Lizy Capone MD [address] [place] [address] PCP - General 11/15/08 Team Status: Active [...] Dr. Kesha Acosta DO Attending Provider Active Rotary Driller Relationship Specialty Start Date End Date Lizy Capone MD [address] [place] [address] PCP - General 11/15/08 Team Status: Inactive Member Role Status Dates Dr. Lizy Capone MD Primary Care Provider Active Dr. Kesha Acosta DO Attending Provider, Referring P rovider Active Rotary Driller Relationship Specialty Start Date End Date Lizy Capone MD [address] [place] [address] PCP - General 11/15/08 Rotary Driller Relationship Specialty Start Date End Date Lizy Capone MD [address] [place] [address] PCP - General 11/15/08 Team Status: Active Member Role Status Dates Dr. Lizy Capone MD Primary Care Provider Active Dr. Norberto Jackson MD Other Provider Active Jas Bethea STOPER, STOPER-C Attending Provider Active Team Status: Active Member Role Status Dates Dr. Lizy Capone MD Primary Care Provider Active Dr. Norberto Jackson MD Other Provider Active Maria Teresa Olivo STOPER, STOPER-C Attending Provider Active Team Status: Inactive Member Role Status Dates Dr. Lizy Capone MD Primary Care Provider Active Dr. Norberto Jackson MD Attending Provider, Referring Pro vider Active Rotary Driller Relationship Specialty Start Date End Date Lizy Capone MD [address] [facility] [place] [address] PCP - General 11/15/08 Rotary Driller Relationship Specialty Start Date End Date Lizy Capone MD [address] [place] [address] PCP - General 11/15/08 Rotary Driller Relationship Specialty Start Date End Date Lizy Capone MD [address] [place] [address] PCP - General 11/15/08 Team Status: Inactive Member Role Status Dates Dr. Lizy Capone MD Primary Care Provider Active Dr. Gautam Hardy MD Attending Provider Active Rotary Driller Relationship Specialty Start Date End Date Lizy Capone MD [address] [place] [address] PCP - General 11/15/08 Rotary Driller Relationship Specialty Start Date End Date Lizy Capone MD [address] [place] [address] PCP - General 11/15/08 Rotary Driller Relationship Specialty Start Date End Date Lizy Capone MD [address] [place] [address] PCP - General 11/15/08 Rotary Driller Relationship Specialty Start Date End Date Lizy Capone MD [address] [place] [address] PCP - General 11/15/08 Rotary Driller Relationship Specialty Start Date End Date Lizy Capone MD [address] [place] [address] PCP - General 11/15/08 Rotary Driller Relationship Specialty Start Date End Date Lizy Capone MD [address] [place] [address] PCP - General 11/15/08 Rotary Driller Relationship Specialty Start Date End Date Lizy Capone MD [address] [place] [address] PCP - General 11/15/08 Rotary Driller Relationship Specialty Start Date End Date Lizy Capone MD [address] [place] [address] PCP - General 11/15/08 Rotary Driller Relationship Specialty Start Date End Date Lizy Capone MD [address] [place] [address] PCP - General 11/15/08 Rotary Driller Relationship Specialty Start Date End Date Lizy Capone MD [address] [place] [address] PCP - General 11/15/08 Rotary Driller Relationship Specialty Start Date End Date Lizy Capone MD [address] [place] [address] PCP - General 11/15/08 Rotary Driller Relationship Specialty Start Date End Date Lizy Capone MD [address] [place] [address] PCP - General 11/15/08 Rotary Driller Relationship Specialty Start Date End Date Lizy Capone MD [address] [place] [address] PCP - General 11/15/08 Team Status: Active Member Role Status Dates Dr. Lizy Capone MD Family Provider Active BROOKLYN Aguillon Primary Care Provider Active Team Status: Active Member Role Status Dates Dr. Judson Toney DO Emergency Provider Active [place] Aguillon Primary Care Provider Active Dr. Ralph Wheeler DO Admit Provider, Attending Pr ovider Active Team Status: Active Member Role Status Dates Dr. Judson Toney DO Emergency Provider Active [place] Aguillon Primary Care Provider Active Dr. Ralph Wheeler , Admit Provider, Other Provid er Active Dr. Ralph Haynes MD Attending Provider, Other Provid er Active Team Status: Inactive Member Role Status Dates Dr. Judson Toney DO Emergency Provider Active [place] Aguillon Primary Care Provider Active Dr. Ralph Wheeler , Admit Provider, Other Provid er Active Dr. Ralph Haynes MD Attending Provider Active Rotary Driller Relationship Specialty Start Date End Date Lizy Capone MD [address] [place] [address] PCP - General 11/15/08 Rotary Driller Relationship Specialty Start Date End Date Lizy Capone MD [address] [place] [address] PCP - General 11/15/08 Rotary Driller Relationship Specialty Start Date End Date Lizy Capone MD [address] [place] [address] PCP - General 11/15/08 Rotary Driller Relationship Specialty Start Date End Date Lizy Capone MD [address] [place] [address] PCP - General 11/15/08 Rotary Driller Relationship Specialty Start Date End Date Lizy Capone MD [address] [place] [address] PCP - General 11/15/08 Rotary Driller Relationship Specialty Start Date End Date Lizy Capone MD [address] [place] [address] PCP - General 11/15/08 Rotary Driller Relationship Specialty Start Date End Date Lizy Capone MD [address] [place] [address] PCP - General 11/15/08 Rotary Driller Relationship Specialty Start Date End Date Lizy Capone MD [address] [place] [address] PCP - General 11/15/08 Rotary Driller Relationship Specialty Start Date End Date Lizy Capone MD [address] [place] [address] PCP - General 11/15/08 Rotary Driller Relationship Specialty Start Date End Date Lizy Capone MD [address] [place] [address] PCP - General 11/15/08 Rotary Driller Relationship Specialty Start Date End Date Lizy Capone MD [address] [place] [address] PCP - General 11/15/08 Rotary Driller Relationship Specialty Start Date End Date Lizy Capone MD [address] [place] [address] PCP - General 11/15/08 Rotary Driller Relationship Specialty Start Date End Date Lizy Capone MD [address] [place] [address] PCP - General 11/15/08 Rotary Driller Relationship Specialty Start Date End Date Lizy Capone MD [address] [place], [place] [address] PCP - General 11/15/08 Rotary Driller Relationship Specialty Start Date End Date Lizy Capone MD [address] [place], [place] [address] [phone] PCP - General 11/15/08 Miryam Orozco APRN.MRI MANAGER [address] [place], [place] [id number] [phone] [facility] 03/13/24 Mulugeta Jennings APRN.MRI MANAGER [address] [place], [place] [address] [phone] [facility] 03/22/24 Rotary Driller Relationship Specialty Start Date End Date Miryam Orozco FNP [address] [address] PCP - General Family Medicine 05/04/24 Norberto Jackson MD [address] [place] [phone] Cardiovascular Disease 05/05/24 Rotary Driller Relationship Specialty Start Date End Date Lizy Capone MD [address] [place], [place] [id number] PCP - General 11/15/08 Miryam Orozco APRN.MRI MANAGER [address] [place], [place] [id number] [phone] [facility] 03/13/24 Mulugeta Jennings APRN.MRI MANAGER [address] [place] [address] [facility] 03/22/24 Team Status: Inactive Member Role Status Dates Miryam Orozco NP-C Primary Care Provider Active Start: April 28, 2024 End: April 28, 2024 Dr. Mari Mehta DO Attending Provider Active Start: April 28, 2024 End: April 28, 2024 Team Status: Inactive Member Role Status Dates Miryam Orozco NP-C Primary Care Provider Active Start: May 01, [...] May 01, 2024 End: May 04, 2024 Mulugetageorgia Barker MS Other Provider Active Start: J [...] 01, 2024 End: May 04, 2024 Dr. bAi Yates MD Other Provider Active Start : [...] Member Role Status Dates Miryam Tannhof , STOPER-C Primary Care Provider Active Start: May 02, [...] Barker MS Other Provider Active Start: J [email or web address] Dr. Gonzales Ying MD Other Provider Active Sta rt: May 04, 2024 Jae Cohen MD Other Provider Active Start: May 04, 2024 TAYA MENCHACA MD Other Provider Active Start: J [email or web address] Adriana Germain MD Other Provider Active Start : May 04, 2024 Dr. Abi Yates MD Other Provider Active Start : May 04, 2024 Nicho Mcmillan MD Other Provider Active Start: May 04, 2024 Minal Garcia MD Other Provider Active Start: May 04, 2024 Team Status: Active Member Role Status Dates Miryam Orozco NP-C Primary Care Provider Active Start: May 04, [...] Agu[place] Primary Care Provider Active Start: May 18, 2024 End: June 10, 2024 Dr. Mari Mehta DO Admit Provider Active Start: May End: June 10, 2024 Dr. Mari Mehta DO Attending Provider Active Start: May End: June 10, 2024 Dr. Gerardo Rogers MD Other Provider Active Start: May 18, 2024 End: June 10, 2024 Team Status: Active Member Role Status Dates Miryam Orozco STOPER-C Primary Care Provider Active Start: May 19, 2024 Dr. Mari Mehta DO Admit Provider Active Start: May Dr. Mari Mehta DO Attending Provider Active Start: May Dr. Mari Mehta DO Other Provider Active Start: May Team Status: Active Member Role Status Dates Miryam Orozco NP-C Primary Care Provider Active Start: May 20, [...] NP-C Primary Care Provider Active Start: May 26, [...] Active Start: May Dr. Mari Mehta , Other Provider Active Start: May Team Status: Active Member Role Status Dates Miryam Orozco NP-C Primary Care Provider Active Start: May 30, 2024 Dr. Mari Mehta DO Admit Provider Active Start: May Dr. Mari Mehta DO Attending Provider Active Start: May Dr. Mari Mehta , Other Provider Active Start: May Team Status: [...] NP-C Primary Care Provider Active Start: June 02, [...] June 06, 2024 Dr. Mari Mehta DO Other Provider Active Start: June 06, 2024 [...] Active Member Role Status Dates Miryam Orozco STOPER-C Primary Care Provider Active Start: June 07, 2024 Christa Michel RN Attending Provider Active Start: June 07, 2024 Team Status: Active Member Role Status Dates Miryam Orozco STOPER-C Primary Care Provider Active Start: June 09, 2024 Dr. Mari Mehta DO Admit Provider Active Start: June 09, 2024 Dr. Mari Mehta DO Attending Provider Act vianney Start: June 09, 2024 Dr. Mari Mehta DO Other Provider Active Start: June 09, 2024 Dr. Gerardo Rogers MD Other Provider Active Start: June 09, 2024 Team Status: Active Member Role Status Dates Miryam Orozco STOPER-C Primary Care Provider Active Start: June 10, 2024 Dr. Mari Mehta DO Admit Provider Active Start: June 10, 2024 Dr. Mari Mehta DO Attending Provider Act vianney Start: June 10, 2024 Dr. Mari Mehta DO Other Provider Active Start: June 10, 2024 Dr. Gerardo Rogers MD Other Provider Active Start: June 10, 2024 Team Status: Active Member Role Status Dates Miryam Orozco STOPER-C Primary Care Provider Active Start: June 13, 2024 Gustavo MANZO MD Attending Provider Active Start: June 13, 2024 Team Status: Active Member Role Status Dates Miryam Orozco STOPER-C Primary Care Provider Active Start: June 20, 2024 Gustavo MANZO MD Attending Provider Active Start: June 20, 2024 Team Status: Active Member Role Status Dates Miryam Orozco STOPER-C Primary Care Provider Active Start: June 27, 2024 Gustavo MANZO MD Attending Provider Active Start: June 27, 2024 Team Status: Active Member Role Status Dates Miryam Orozco STOPER-C Primary Care Provider Active Start: July 04, 2024 Gustavo MANZO MD Attending Provider Active Start: July 04, 2024 Team Status: Active Member Role Status Dates Miryam Orozco STOPER-C Primary Care Provider Active Start: July 11, 2024 Gustavo MANZO MD Attending Provider Active Start: July 11, 2024 Team Status: Active Member Role Status Dates Miryam Orozco STOPER-C Primary Care Provider Active Team Status: Inactive Member Role Status Dates Miryam Orozco STOPER-C Primary Care Provider Active Start: June 13, 2024 End: June 13, 2024 Minna Villarreal STOPER, STOPER-C Attending Provider Active Start: June 13, 2024 End: June 13, 2024 Team Status: Inactive Member Role Status Dates Miryam Orozco STOPER-C Primary Care Provider Active Start: June 14, 2024 End: June 14, 2024 Dr. Gustavo Castorena MD Attending Provider Active Start: June 14, 2024 End: June 14, 2024 Team Status: Inactive Member Role Status Dates Miryam Orozco STOPER-C Primary Care Provider Active Start: June 22, 2024 End: June 22, 2024 Minna Villarreal NP, STOPER-C Attending Provider Active Start: June 22, 2024 End: June 22, 2024 Team Status: Active Member Role Status Dates Miryam Orozco STOPER-C Primary Care Provider Active Start: July 11, 2024 Gustavo MANZO MD Attending Provider Active Start: July 11, 2024 Gustavo MANZO MD Referring Provider Active Start: July 11, 2024 Team Status: Active Member Role Status Dates Miryam Orozco STOPER-C Primary Care Provider Active Start: July 18, 2024 Gustavo MANZO MD Attending Provider Active Start: July 18, 2024 Team Status: Active Member Role Status Dates Miryam Orozco STOPER-C Primary Care Provider Active Start: July 25, 2024 Gustavo MANZO MD Attending Provider Active Start: July 25, 2024 Team Status: Inactive Member Role Status Dates Miryam Orozco STOPER-C Primary Care Provider Active Start: July 29, 2024 End: July 29, 2024 Dr. Jean Paul Ha DO Emergency Provider Active Start : July 29, 2024 End: July 29, 2024 Rotary Driller Relationship Specialty Start Date End Date Lizy Capone MD [address] [place] [address] PCP - General 11/15/08 Mulugeta Jennings, NANCI.MRI MANAGER [address] [place], [place] [address] [facility] Rotary Driller Relationship Specialty Start Date End Date Lizy Capone MD [address] [place], [place] [id number] PCP - General 11/15/08 Mulugeta Jennings, NANCI.MRI MANAGER [address] [place], [place] [id number] [facility]ly [facility] 03/22/24 Team Status: Inactive Member Role Status Dates Miryam Orozco NP-C Primary Care Provider Active Start: July 29, 2024 End: July 29, 2024 Dr. Jean Paul Ha DO Attending Provider Active Start : July 29, 2024 End: July 29, 2024 Dr. Jean Paul Ha DO Emergency Provider Active Start : July 29, 2024 End: July 29, 2024 Team Status: Active Member Role Status Dates Miryam Orozco NP-C Primary Care Provider Active Start: August 01, 2024 Gustavo MANZO MD Attending Provider Active Start: August 01, 2024 Gustavo MANZO MD Referring Provider Active Start: August 01, 2024 Team Status: Active Member Role Status Dates Miryam Orozco NP-C Primary Care Provider Active Start: August 08, 2024 Gustavo MANZO MD Attending Provider Active Start: August 08, 2024 Team Status: Inactive Member Role Status Dates Miryam Orozco NP-C Primary Care Provider Active Start: August 12, 2024 End: August 12, 2024 BROOKLYN Aguillon Referring Provider Active Start: August 12, 2024 End: August 12, 2024 Dr. Gonzalo Lomax MD Attending Provider Active Start: August 12, 2024 End: August 12, 2024 Team Status: Active Member Role Status Dates Miryam Orozco NP-C Primary Care Provider Active Start: August 15, 2024 Dr. Gonzalo Lomax MD Attending Provider Active Start: August 15, 2024 Dr. Gonzalo Lomax MD Referring Provider Active Start: August 15, 2024 Dr. Gonzalo Lomax MD Other Provider Active Star t: August 15, 2024 Team Status: Active Member Role Status Dates Miryam Orozco STOPER-C Primary Care Provider Active Start: August 16, 2024 Gustavo MANZO MD Attending Provider Active Start: August 16, 2024 Team Status: Active Member Role Status Dates Miryam Orozco STOPER-C Primary Care Provider Active Start: August 18, 2024 Gustavo MANZO MD Attending Provider Active Start: August 18, 2024 Team Status: Active Member Role Status Dates Miryam Orozco STOPER-C Primary Care Provider Active Start: August 22, 2024 Gustavo MANZO MD Attending Provider Active Start: August 22, 2024 Team Status: Active Member Role Status Dates Miryam Orozco STOPER-C Primary Care Provider Active Start: August 22, 2024 Dr. Gonzalo Lomax MD Attending Provider Active Start: August 22, 2024 Dr. Gonzalo Lomax MD Referring Provider Active Start: August 22, 2024 Dr. Gonzalo Lomax MD Other Provider Active Star t: August 22, 2024 Team Status: Inactive Member Role Status Dates Miryam Orozco STOPER-C Primary Care Provider Active Start: September 01, 2024 End: September 03, 2024 Dr. Gonzalo Lomax MD Attending Provider Active Start: September 01, 2024 End: September 03, 2024 Dr. Gonzalo Lomax MD Referring Provider Active Start: September 01, 2024 End: September 03, 2024 Team Status: Active Member Role Status Dates Miryam Orozco STOPER-C Primary Care Provider Active Start: September 01, 2024 Dr. Gonzalo Lomax MD Attending Provider Active Start: September 01, 2024 Dr. Gonzalo Lomax MD Referring Provider Active Start: September 01, 2024 Dr. Gonzalo Lomax MD Other Provider Active Star t: September 01, 2024 Rotary Driller Relationship Specialty Start Date End Date Lizy Capone MD [address] [place] [address] PCP - General 11/15/08 Mulugeta Jennings APRN.MRI MANAGER [address] [place] [address] [employer] [facility] 03/22/24 Team Status: Inactive Member Role Status Dates BROOKLYN Aguillon Primary Care Provider Active Start: September 05, 2024 End: September 05, 2024 [place] Aguillon Referring Provider Active Start: September 05, 2024 End: September 05, 2024 Dr. Mehdi Womack MD Attending Provider Active Start: September 05, 2024 End: September 05, 2024 Rotary Driller Relationship Specialty Start Date End Date Lizy Capone MD [address] [place] [address] PCP - General 11/15/08 Mulugeta Jennings APRN.MRI MANAGER [address] [place] [address] [employer] [facility] 03/22/24 Rotary Driller Relationship Specialty Start Date End Date Lizy Capone MD [address] [place] [address] PCP - General 11/15/08 Mulugeta Jennings APRN.MRI MANAGER [address] [place] [address] [facility] Rotary Driller Relationship Specialty Start Date End Date Lizy Capone MD [address] [place] [address] PCP - General 11/15/08 Mulugeta Jennings APRN.MRI MANAGER [address] [place] [address] [employer] [facility] 03/22/24 Rotary Driller Relationship Specialty Start Date End Date Lizy Capone MD [address] [place] [address] PCP - General 11/15/08 Mulugeta Jennings APRN.MRI MANAGER [address] [place] [address] [facility] Rotary Driller Relationship Specialty Start Date End Date Lizy Capone MD [address] [place], [place] [address] PCP - General 11/15/08 Mulugeta Jennings APRN.MRI MANAGER [address] [place] [address] [facility]24 Team Status: Active Member Role Status Dates BROOK[place]N Aguillon Primary Care Provider Active Start: August 22, 2024 Gustavo MANZO MD Attending Provider Active Start: August 22, 2024 Gustavo MANZO MD Referring Provider Active Start: August 22, 2024 Team Status: Inactive Member Role Status Dates BR[place]N Aguillon Primary Care Provider Active Start: September 06, 2024 End: September 06, 2024 Dr. Gonzalo Lomax MD Attending Provider Active Start: September 06, 2024 End: September 06, 2024 Dr. Gonzalo Lomax MD Referring Provider Active Start: September 06, 2024 End: September 06, 2024 Team Status: Active Member Role Status Dates MARILEE gAuillonC Primary Care Provider Active Start: September 06, 2024 Dr. Gonzalo Lomax MD Attending Provider Active Start: September 06, 2024 Dr. Gonzalo Lomax MD Referring Provider Active Start: September 06, 2024 Dr. Gonzalo Lomax MD Other Provider Active Star t: September 06, 2024 Rotary Driller Relationship Specialty Start Date End Date Lizy Capone MD [address] [place], [place] [address] PCP - General 11/15/08 Mulugeta Jennings APRN.MRI MANAGER [address] [place], [place] [address] [facility] 03/22/24 Team Status: Inactive Member Role Status Dates Miryam Orozco STOPER-C Primary Care Provider Active Start: July 20, 2024 End: July 20, 2024 Minna Villarreal NP, STOPER-C Attending Provider Active Start: July 20, 2024 End: July 20, 2024 Team Status: Active Member Role Status Dates Miryam Orozco STOPER-C Primary Care Provider Active Start: September 12, [...] NP-C Primary Care Provider Active Start: September 20, 2024 Dr. Gonzalo Lomax MD Attending Provider Active Start: September 20, 2024 Dr. Gonzalo Lomax MD Referring Provider Active Start: September 20, 2024 Dr. Gonzalo Lomax MD Other Provider Active Star t: September 20, 2024 Team Status: Active Member Role Status Dates Miryam Orozco STOPER-C Primary Care Provider Active Start: September 28, 2024 Dr. Jhonatan Maxwell DO Emergency Provider Active Start: September 28, 2024 Dr. Michelle Gallardo MD Admit Provider Active St art: September 28, 2024 Dr. Michelle Gallardo MD Attending Provider Active Start: September 28, 2024 Dr. 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 Mari Mehta DO Admit Provider Active Start: June 06, 2024 Dr. Mari Mehta DO Attending Provider Act vianney Start: June 06, 2024 Dr. Mari Mehta DO Other Provider Active Start: June 06, 2024 Team Status: Active Member Role/Relationship Status Dates MARILEE AguillonC Primary Care Provider Active Start: June 07, 2024 Dr. Mari Mehta DO Admit Provider Active Start: June 07, 2024 Dr. Mari Mehta DO Attending Provider Act v[place] Start: June 07, 2024 Dr. Mari Mehta DO Other Provider Active Start: June 07, 2024 Team Status: Active Member Role/Relationship Status Dates MARILEE AguillonC Primary Care Provider Active Start: June 07, 2024 Christa Michel RN Attending Provider Active Start: June 07, 2024 Team Status: Active Member Role/Relationship Status Dates Miryam Orozco STOPER-C Primary Care Provider Active Start: June 09, 2024 Dr. Mari Mehta DO Admit Provider Active Start: June 09, 2024 Dr. Mari Mehta DO Attending Provider Act [place] Start: June 09, 2024 Dr. Mari Mehta DO Other Provider Active Start: June 09, 2024 Dr. Gerardo Rogers MD Other Provider Active Start: June 09, 2024 Team Status: Active Member Role/Relationship Status Dates Miryam Orozco STOPER-C Primary Care Provider Active Start: June 10, 2024 Dr. Mari Mehta DO Admit Provider Active Start: June 10, 2024 Dr. Mari Mehta DO Attending Provider Act v[place] Start: June 10, 2024 Dr. Mari Mehta DO Other Provider Active Start: June 10, 2024 Dr. Gerardo Rogers MD Other Provider Active Start: June 10, 2024 Team Status: Active Member Role/Relationship Status Dates Miryam Orozco , STOPER-C Primary Care Provider Active Start: June 13, 2024 Gustavo MANZO MD Attending Provider Active Start: June 13, 2024 Team Status: Inactive Member Role/Relationship Status Dates Miryam Orozco , STOPER-C Primary Care Provider Active Start: June 13, 2024 End: June 13, 2024 Minna Villarreal NP, STOPER-C Attending Provider Active Start: June 13, 2024 End: June 13, 2024 Team Status: Inactive Member Role/Relationship Status Dates Miryam Orozco , STOPER-C Primary Care Provider Active Start: June 14, 2024 End: June 14, 2024 Dr. Gustavo Castorena MD Attending Provider Active Start: June 14, 2024 End: June 14, 2024 Team Status: Active Member Role/Relationship Status Dates Miryam Orozco , STOPER-C Primary Care Provider Active Start: June 20, 2024 Gustavo MANZO MD Attending Provider Active Start: June 20, 2024 Team Status: Inactive Member Role/Relationship Status Dates Miryam Orozco STOPER-C Primary Care Provider Active Start: June 22, 2024 End: June 22, 2024 Minna Villarreal STOPER, STOPER-C Attending Provider Active Start: June 22, 2024 End: June 22, 2024 Team Status: Active Member Role/Relationship Status Dates Miryam Orozco STOPER-C Primary Care Provider Active Start: June 27, 2024 Gustavo MANZO MD Attending Provider Active Start: June 27, 2024 Team Status: Active Member Role/Relationship Status Dates Miryam Orozco STOPER-C Primary Care Provider Active Start: July 04, 2024 Gustavo MANZO MD Attending Provider Active Start: July 04, 2024 Team Status: Active Member Role/Relationship Status Dates Miryam Orozco STOPER-C Primary Care Provider Active Start: July 11, 2024 Gustavo MANZO MD Attending Provider Active Start: July 11, 2024 Gustavo MANZO MD Referring Provider Active Start: July 11, 2024 Team Status: Active Member Role/Relationship Status Dates Miryam Orozco STOPER-C Primary Care Provider Active Start: July 18, 2024 Gustavo MANZO MD Attending Provider Active Start: July 18, 2024 Team Status: Inactive Member Role/Relationship Status Dates Miryam Orozco STOPER-C Primary Care Provider Active Start: July 20, 2024 End: July 20, 2024 Minna Villarreal NP, STOPER-C Attending Provider Active Start: July 20, 2024 End: July 20, 2024 Team Status: Active Member Role/Relationship Status Dates Miryam Orozco STOPER-C Primary Care Provider Active Start: July 25, 2024 Gustavo MANZO MD Attending Provider Active Start: July 25, 2024 Team Status: Inactive Member Role/Relationship Status Dates Miryam Orozco STOPER-C Primary Care Provider Active Start: July 29, 2024 End: July 29, 2024 Dr. Jean Paul Ha DO Attending Provider Active Start : July 29, 2024 End: July 29, 2024 Dr. Jean Paul Ha DO Emergency Provider Active Start : July 29, 2024 End: July 29, 2024 Team Status: Active Member Role/Relationship Status Dates Miryam Orozco STOPER-C Primary Care Provider Active Start: August 01, 2024 Gustavo MANZO MD Attending Provider Active Start: August 01, 2024 Gustavo MANZO MD Referring Provider Active Start: August 01, 2024 Team Status: Active Member Role/Relationship Status Dates Miryam Orozco , STOPER-C Primary Care Provider Active Start: August 08, 2024 Gustavo MANZO MD Attending Provider Active Start: August 08, 2024 Team Status: Inactive Member Role/Relationship Status Dates Miryam Orozco , STOPER-C Primary Care Provider Active Start: August 12, 2024 End: August 12, 2024 Miryam Orozco , STOPER-C Referring Provider Active Start: August 12, 2024 End: August 12, 2024 Dr. Gonzalo Lomax MD Attending Provider Active Start: August 12, 2024 End: August 12, 2024 Team Status: Active Member Role/Relationship Status Dates Miryam Orozco , STOPER-C Primary Care Provider Active Start: August 15, 2024 Dr. Gonzalo Lomax MD Attending Provider Active Start: August 15, 2024 Dr. Gonzalo Lomax MD Referring Provider Active Start: August 15, 2024 Dr. Gonzalo Lomax MD Other Provider Active Star t: August 15, 2024 Team Status: Active Member Role/Relationship Status Dates Miryam Orozco , STOPER-C Primary Care Provider Active Start: August 16, 2024 Gustavo MANZO MD Attending Provider Active Start: August 16, 2024 Team Status: Active Member Role/Relationship Status Dates Miryam Orozco , STOPER-C Primary Care Provider Active Start: August 18, 2024 Gustavo MANZO MD Attending Provider Active Start: August 18, 2024 Team Status: Active Member Role/Relationship Status Dates Miryam Orozco , STOPER-C Primary Care Provider Active Start: August 22, 2024 Gustavo MANZO MD Attending Provider Active Start: August 22, 2024 Gustavo MANZO MD Referring Provider Active Start: August 22, 2024 Team Status: Active Member Role/Relationship Status Dates Miryam Orozco , STOPER-C Primary Care Provider Active Start: August 22, 2024 Dr. Gonzalo Lomax MD Attending Provider Active Start: August 22, 2024 Dr. Gonzalo Lomax MD Referring Provider Active Start: August 22, 2024 Dr. Gonzalo Lomax MD Other Provider Active Star t: August 22, 2024 Team Status: Inactive Member Role/Relationship Status Dates Miryampoonam Kimballhof , STOPER-C Primary Care Provider Active Start: September 01, 2024 End: September 03, 2024 Dr. Gonzalo Lomax MD Attending Provider Active Start: September 01, 2024 End: September 03, 2024 Dr. Gonzalo Lomax MD Referring Provider Active Start: September 01, 2024 End: September 03, 2024 Team Status: Active Member Role/Relationship Status Dates Miryampoonam Kimballhopat , STOPER-C Primary Care Provider Active Start: September 01, 2024 Dr. Gonzalo Lomax MD Attending Provider Active Start: September 01, 2024 Dr. Gonzalo Lomax MD Referring Provider Active Start: September 01, 2024 Dr. Gonzalo Lomax MD Other Provider Active Star t: September 01, 2024 Team Status: Inactive Member Role/Relationship Status Dates Miryam Tannhof , STOPER-C Primary Care Provider Active Start: September 05, 2024 End: September 05, 2024 Miryam Tannhof , STOPER-C Referring Provider Active Start: September 05, 2024 End: September 05, 2024 Dr. Mehdi Womack MD Attending Provider Active Start: September 05, 2024 End: September 05, 2024 Team Status: Inactive Member Role/Relationship Status Dates Miryam Tannhof , STOPER-C Primary Care Provider Active Start: September 06, 2024 End: September 06, 2024 Dr. Gonzalo Lomax MD Attending Provider Active Start: September 06, 2024 End: September 06, 2024 Dr. Gonzalo Lomax MD Referring Provider Active Start: September 06, 2024 End: September 06, 2024 Team Status: Active Member Role/Relationship Status Dates Miryampoonam Kimballhopat , STOPER-C Primary Care Provider Active Start: September 06, 2024 Dr. Gonzalo Lomax MD Attending Provider Active Start: September 06, 2024 Dr. Gonzalo Lomax MD Referring Provider Active Start: September 06, 2024 Dr. Gonzalo Lomax MD Other Provider Active Star t: September 06, 2024 Team Status: Active Member Role/Relationship Status Dates Miryampoonam Kimballhof , STOPER-C Primary Care Provider Active Start: September 12, 2024 Dr. Gonzalo Lomax MD Attending Provider Active Start: September 12, 2024 Dr. Gonzalo Lomax MD Referring Provider Active Start: September 12, 2024 Dr. Gonzalo Lomax MD Other Provider Active Star t: September 12, 2024 Team Status: Inactive Member Role/Relationship Status Dates Miryam Orozco STOPER-C Primary Care Provider Active Start: September 19, 2024 End: October 03, 2024 Dr. Gonzalo Lomax MD Attending Provider Active Start: September 19, 2024 End: October 03, 2024 Dr. Gonzalo Lomax MD Referring Provider Active Start: September 19, 2024 End: October 03, 2024 Team Status: Active Member Role/Relationship Status Dates Miryam Orozco STOPER-C Primary Care Provider Active Start: September 20, 2024 Dr. Gonzalo Lomax MD Attending Provider Active Start: September 20, 2024 Dr. Gonzalo Lomax MD Referring Provider Active Start: September 20, 2024 Dr. Gonzalo Lomax MD Other Provider Active Star t: September 20, 2024 Team Status: Active Member Role/Relationship Status Dates Miryam Orozco STOPER-C Primary Care Provider Active Start: September 28, [...] Active Member Role/Relationship Status Dates Miryam Orozco STOPER-C Primary Care Provider Active Start: September 29, [...] Provider Active Start: October 02, 2024 Dr. Jhontaan Maxwell DO Emergency Provider Active Start: October [...] Active Member Role/Relationship Status Dates Miryam Orozco STOPER-C Primary Care Provider Active Start: October 03, [...] Member Role/Relationship Status Dates Miryam Orozco , STOPER-C Primary Care Provider Active Start: June 14, 2024 End: June 14, 2024 Dr. Gustavo Castorena MD Attending Provider Active Start: June 14, 2024 End: June 14, 2024 Team Status: Active Member Role/Relationship Status Dates Miryam Orozco STOPER-C Primary Care Provider Active Start: June 20, 2024 Gustavo MANZO MD Attending Provider Active Start: June 20, 2024 Team Status: Inactive Member Role/Relationship Status Dates Miryam Orozco , STOPER-C Primary Care Provider Active Start: June 22, 2024 End: June 22, 2024 Minna Villarreal NP, STOPER-C Attending Provider Active Start: June 22, 2024 End: June 22, 2024 Team Status: Active Member Role/Relationship Status Dates Miryam Orozco STOPER-C Primary Care Provider Active Start: June 27, 2024 Gustavo MANZO MD Attending Provider Active Start: June 27, 2024 Team Status: Active Member Role/Relationship Status Dates Miryam Orozco STOPER-C Primary Care Provider Active Start: July 04, 2024 Gustavo MANZO MD Attending Provider Active Start: July 04, 2024 Team Status: Active Member Role/Relationship Status Dates Miryam Tannhof , STOPER-C Primary Care Provider Active Start: July 11, 2024 Gustavo MANZO MD Attending Provider Active Start: July 11, 2024 Gustavo MANZO MD Referring Provider Active Start: July 11, 2024 Team Status: Active Member Role/Relationship Status Dates Miryam Orozco , STOPER-C Primary Care Provider Active Start: July 18, 2024 Gustavo MANZO MD Attending Provider Active Start: July 18, 2024 Team Status: Inactive Member Role/Relationship Status Dates Miryam Orozco , STOPER-C Primary Care Provider Active Start: July 20, 2024 End: July 20, 2024 Minna Villarreal NP, STOPER-C Attending Provider Active Start: July 20, 2024 End: July 20, 2024 Team Status: Active Member Role/Relationship Status Dates Miryam Orozco , STOPER-C Primary Care Provider Active Start: July 25, 2024 Gustavo MANZO MD Attending Provider Active Start: July 25, 2024 Team Status: Inactive Member Role/Relationship Status Dates Miryam Orozco , STOPER-C Primary Care Provider Active Start: July 29, 2024 End: July 29, 2024 Dr. Jean Paul Ha DO Attending Provider Active Start : July 29, 2024 End: July 29, 2024 Dr. Jean Paul Ha DO Emergency Provider Active Start : July 29, 2024 End: July 29, 2024 Team Status: Active Member Role/Relationship Status Dates Miryam Orozco , STOPER-C Primary Care Provider Active Start: August 01, 2024 Gustavo MANZO MD Attending Provider Active Start: August 01, 2024 Gustavo MANZO MD Referring Provider Active Start: August 01, 2024 Team Status: Active Member Role/Relationship Status Dates Miryam Orozco STOPER-C Primary Care Provider Active Start: August 08, 2024 Gustavo MANZO MD Attending Provider Active Start: August 08, 2024 Team Status: Inactive Member Role/Relationship Status Dates Miryam Orozco , STOPER-C Primary Care Provider Active Start: August 12, 2024 End: August 12, 2024 Miryam Orozco STOPER-C Referring Provider Active Start: August 12, 2024 End: August 12, 2024 Dr. Gonzalo Lomax MD Attending Provider Active Start: August 12, 2024 End: August 12, 2024 Team Status: Active Member Role/Relationship Status Dates Miryam Orozco , STOPER-C Primary Care Provider Active Start: August 15, 2024 Dr. Gonzalo Lomax MD Attending Provider Active Start: August 15, 2024 Dr. Gonzalo Lomax MD Referring Provider Active Start: August 15, 2024 Dr. Gonzalo Lomax MD Other Provider Active Star t: August 15, 2024 Team Status: Active Member Role/Relationship Status Dates Miryampoonam Orozco , STOPER-C Primary Care Provider Active Start: August 16, 2024 Gustavo MANZO MD Attending Provider Active Start: August 16, 2024 Team Status: Active Member Role/Relationship Status Dates Miryampoonam Orozco , STOPER-C Primary Care Provider Active Start: August 18, 2024 Gustavo MANZO MD Attending Provider Active Start: August 18, 2024 Team Status: Active Member Role/Relationship Status Dates Miryam Orozco , STOPER-C Primary Care Provider Active Start: August 22, 2024 Gustavo MANZO MD Attending Provider Active Start: August 22, 2024 Gustavo MANZO MD Referring Provider Active Start: August 22, 2024 Team Status: Active Member Role/Relationship Status Dates Miryampoonam Serraf , STOPER-C Primary Care Provider Active Start: August 22, 2024 Dr. Gonzalo Lomax MD Attending Provider Active Start: August 22, 2024 Dr. Gonzalo Lomax MD Referring Provider Active Start: August 22, 2024 Dr. Gonzalo Lomax MD Other Provider Active Star t: August 22, 2024 Team Status: Inactive Member Role/Relationship Status Dates Miryam Orozco , STOPER-C Primary Care Provider Active Start: September 01, 2024 End: September 03, 2024 Dr. Gonzalo Lomax MD Attending Provider Active Start: September 01, 2024 End: September 03, 2024 Dr. Gonzalo Lomax MD Referring Provider Active Start: September 01, 2024 End: September 03, 2024 Team Status: Active Member Role/Relationship Status Dates Miryam Orozco , STOPER-C Primary Care Provider Active Start: September 01, 2024 Dr. Gonzalo Lomax MD Attending Provider Active Start: September 01, 2024 Dr. Gonzalo Lomax MD Referring Provider Active Start: September 01, 2024 Dr. Gonzalo Lomax MD Other Provider Active Star t: September 01, 2024 Team Status: Inactive Member Role/Relationship Status Dates Miryampoonam Kimballhof , STOPER-C Primary Care Provider Active Start: September 05, 2024 End: September 05, 2024 Miryampoonam Orozco , STOPER-C Referring Provider Active Start: September 05, 2024 End: September 05, 2024 Dr. Mehdi Womack MD Attending Provider Active Start: September 05, 2024 End: September 05, 2024 Team Status: Inactive Member Role/Relationship Status Dates Miyrampoonam Orozco , STOPER-C Primary Care Provider Active Start: September 06, 2024 End: September 06, 2024 Dr. Gonzalo Lomax MD Attending Provider Active Start: September 06, 2024 End: September 06, 2024 Dr. Gonzalo Lomax MD Referring Provider Active Start: September 06, 2024 End: September 06, 2024 Team Status: Active Member Role/Relationship Status Dates Miryam Orozco , STOPER-C Primary Care Provider Active Start: September 06, 2024 Dr. Gonzalo Lomax MD Attending Provider Active Start: September 06, 2024 Dr. Gonzalo Lomax MD Referring Provider Active Start: September 06, 2024 Dr. Gonzalo Lomax MD Other Provider Active Star t: September 06, 2024 Team Status: Active Member Role/Relationship Status Dates Miryampoonam Orozco , STOPER-C Primary Care Provider Active Start: September 12, 2024 Dr. Gonzalo Lomax MD Attending Provider Active Start: September 12, 2024 Dr. Gonzalo Lomax MD Referring Provider Active Start: September 12, 2024 Dr. Gonzalo Lomax MD Other Provider Active Star t: September 12, 2024 Team Status: Inactive Member Role/Relationship Status Dates Miryampoonam Kimballhopat , STOPER-C Primary Care Provider Active Start: September 19, 2024 End: October 03, 2024 Dr. Gonzalo Lomax MD Attending Provider Active Start: September 19, 2024 End: October 03, 2024 Dr. Gonzalo Lomax MD Referring Provider Active Start: September 19, 2024 End: October 03, 2024 Team Status: Active Member Role/Relationship Status Dates Miryampoonam Kimballhof , STOPER-C Primary Care Provider Active Start: September 20, 2024 Dr. Gonzalo Lomax MD Attending Provider Active Start: September 20, 2024 Dr. Gonzalo Lomax MD Referring Provider Active Start: September 20, 2024 Dr. Gonzalo Lomax MD Other Provider Active Star t: September 20, 2024 Team Status: Inactive Member Role/Relationship Status Dates Miryam Orozco STOPER-C Primary Care Provider Active Start: September 28, [...] Active Member Role/Relationship Status Dates Miryam Orozco STOPER-C Primary Care Provider Active Start: September 30, 2024 Dr. Jhonatan Maxwell DO Emergency Provider Active Start: September 30, 2024 Dr. Michelle Gallardo MD Admit Provider Active St art: September 30, 2024 Dr. Michelle Gallardo MD Other Provider Active St art: September 30, 2024 Dr. Qian Albrecht MD Other Provider Active Start: September 30, 2024 Dr. Russell Todd , Attending Provider Active Start: September 30, 2024 Dr. Russell Todd , DO Other Provider Active Star t: September 30, 2024 Team Status: Active Member Role/Relationship Status Dates Miryam Orozco NP-C Primary Care Provider Active Start: October 01, 2024 Dr. Jhonatan Maxwell , Emergency Provider Active Start: October 01, 2024 Dr. Michelle Gallardo MD Admit Provider Active St art: October 01, 2024 Dr. Michelle Gallardo MD Other Provider Active St art: October 01, 2024 Dr. Qian Albrecht MD Other Provider Active Start: October 01, 2024 Dr. Alex Acosta , Attending Provider Active S tart: October 01, 2024 Dr. Alex Acosta , DO Other [...] October 02, 2024 Dr. Alex Acosta , Attending Provider Active S tart: October 02, [...] Active Member Role/Relationship Status Dates Miryam Orozco STOPER-C Primary Care Provider Active Start: October 04, 2024 Dr. Jhonatan Maxwell , Emergency Provider Active Start: October 04, 2024 [...] Active Member Role/Relationship Status Dates Miryam Orozco STOPER-C Primary Care Provider Active Start: October 10, 2024 Dr. Gonzalo Lomax MD Attending Provider Active Start: October 10, 2024 Dr. Gonzalo Lomax MD Referring Provider Active Start: October 10, 2024 Team Status: Active Member Role/Relationship Status Dates Miryam Orozco STOPER-C Primary Care Provider Active Start: October 10, 2024 Dr. Gonzalo Lomax MD Attending Provider Active Start: October 10, 2024 Dr. Gonzalo Lomax MD Referring Provider Active Start: October 10, 2024 Dr. Gonzalo Lomax MD Other Provider Active Star t: October 10, 2024 Team Status: Active Member Role/Relationship Status Dates Miryam Orozco , STOPER-C Primary Care Provider Active Start: October 11, 2024 Dr. Gautam Hardy MD Attending Provider Active Start: October 11, 2024 Dr. Gautam Hardy MD Referring Provider Active Start: October 11, 2024 Team Status: Active Member Role/Relationship Status Dates Miryam Orozco , STOPER-C Primary Care Provider Active Start: October 11, 2024 Dr. Russell Gonzalez MD Attending Provider Active S tart: October 11, 2024 Team Status: Inactive Member Role/Relationship Status Dates Miryam Orozco , STOPER-C Primary Care Provider Active Start: October 12, 2024 End: October 12, 2024 Dr. Alexis Friend MD Emergency Provider Active Sta rt: October 12, 2024 End: October 12, 2024 Team Status: Active Member Role/Relationship Status Dates Miryam Orozco , STOPER-C Primary Care Provider Active Start: June 20, 2024 Gustavo MANZO MD Attending Provider Active Start: June 20, 2024 Team Status: Inactive Member Role/Relationship Status Dates Miryam Orozco , STOPER-C Primary Care Provider Active Start: June 22, 2024 End: June 22, 2024 Minna Villarreal NP, STOPER-C Attending Provider Active Start: June 22, 2024 End: June 22, 2024 Team Status: Active Member Role/Relationship Status Dates Miryam Orozco , STOPER-C Primary Care Provider Active Start: June 27, 2024 Gustavo MANZO MD Attending Provider Active Start: June 27, 2024 Team Status: Active Member Role/Relationship Status Dates Miryam Orozco , STOPER-C Primary Care Provider Active Start: July 04, 2024 Gustavo MANZO MD Attending Provider Active Start: July 04, 2024 Team Status: Active Member Role/Relationship Status Dates Miryam Orozco , STOPER-C Primary Care Provider Active Start: July 11, 2024 Gustavo MANZO MD Attending Provider Active Start: July 11, 2024 Gustavo MANZO MD Referring Provider Active Start: July 11, 2024 Team Status: Active Member Role/Relationship Status Dates Miryam Orozco , STOPER-C Primary Care Provider Active Start: July 18, 2024 Gustavo MANZO MD Attending Provider Active Start: July 18, 2024 Team Status: Inactive Member Role/Relationship Status Dates Miryam Orozco , STOPER-C Primary Care Provider Active Start: July 20, 2024 End: July 20, 2024 Minna Garretteric VYAS, STOPER-C Attending Provider Active Start: July 20, 2024 End: July 20, 2024 Team Status: Active Member Role/Relationship Status Dates Miryam Orozco , STOPER-C Primary Care Provider Active Start: July 25, 2024 Gustavo MANZO MD Attending Provider Active Start: July 25, 2024 Team Status: Inactive Member Role/Relationship Status Dates Miryam Orozco , STOPER-C Primary Care Provider Active Start: July 29, 2024 End: July 29, 2024 Dr. Jean Paul Ha DO Attending Provider Active Start : July 29, 2024 End: July 29, 2024 Dr. Jean Paul Ha DO Emergency Provider Active Start : July 29, 2024 End: July 29, 2024 Team Status: Active Member Role/Relationship Status Dates Miryam Orozco , STOPER-C Primary Care Provider Active Start: August 01, 2024 Gustavo MANZO MD Attending Provider Active Start: August 01, 2024 Gustavo MANZO MD Referring Provider Active Start: August 01, 2024 Team Status: Active Member Role/Relationship Status Dates Miryam Orozco , STOPER-C Primary Care Provider Active Start: August 08, 2024 Gustavo MANZO MD Attending Provider Active Start: August 08, 2024 Team Status: Inactive Member Role/Relationship Status Dates Miryam Orozco , STOPER-C Primary Care Provider Active Start: August 12, 2024 End: August 12, 2024 Miryam Orozco , STOPER-C Referring Provider Active Start: August 12, 2024 End: August 12, 2024 Dr. Gonzalo Lomax MD Attending Provider Active Start: August 12, 2024 End: August 12, 2024 Team Status: Active Member Role/Relationship Status Dates Miryam Orozco , STOPER-C Primary Care Provider Active Start: August 15, 2024 Dr. Gonzalo Lomax MD Attending Provider Active Start: August 15, 2024 Dr. Gonzalo Lomax MD Referring Provider Active Start: August 15, 2024 Dr. Gonzalo Lomax MD Other Provider Active Star t: August 15, 2024 Team Status: Active Member Role/Relationship Status Dates Miryam Orozco , STOPER-C Primary Care Provider Active Start: August 16, 2024 Gustavo MANZO MD Attending Provider Active Start: August 16, 2024 Team Status: Active Member Role/Relationship Status Dates Miryam Orozco , STOPER-C Primary Care Provider Active Start: August 18, 2024 Gustavo MANZO MD Attending Provider Active Start: August 18, 2024 Team Status: Active Member Role/Relationship Status Dates Miryam Orozco , STOPER-C Primary Care Provider Active Start: August 22, 2024 Gustavo MANZO MD Attending Provider Active Start: August 22, 2024 Gustavo MANZO MD Referring Provider Active Start: August 22, 2024 Team Status: Active Member Role/Relationship Status Dates Miryam Orozco , STOPER-C Primary Care Provider Active Start: August 22, 2024 Dr. Gonzalo Lomax MD Attending Provider Active Start: August 22, 2024 Dr. Gonzalo Lomax MD Referring Provider Active Start: August 22, 2024 Dr. Gonzalo Lomax MD Other Provider Active Star t: August 22, 2024 Team Status: Inactive Member Role/Relationship Status Dates Miryam Orozco , STOPER-C Primary Care Provider Active Start: September 01, 2024 End: September 03, 2024 Dr. Gonzalo Lomax MD Attending Provider Active Start: September 01, 2024 End: September 03, 2024 Dr. Gonzalo Lomax MD Referring Provider Active Start: September 01, 2024 End: September 03, 2024 Team Status: Active Member Role/Relationship Status Dates Miryam Orozco , STOPER-C Primary Care Provider Active Start: September 01, 2024 Dr. Gonzalo Lomax MD Attending Provider Active Start: September 01, 2024 Dr. Gonzalo Lomax MD Referring Provider Active Start: September 01, 2024 Dr. Gonzalo Lomax MD Other Provider Active Star t: September 01, 2024 Team Status: Inactive Member Role/Relationship Status Dates Miryam Orozco , STOPER-C Primary Care Provider Active Start: September 05, 2024 End: September 05, 2024 Miryam Orozco , STOPER-C Referring Provider Active Start: September 05, 2024 End: September 05, 2024 Dr. Mehdi Womack MD Attending Provider Active Start: September 05, 2024 End: September 05, 2024 Team Status: Inactive Member Role/Relationship Status Dates Miryampoonam Orozco , STOPER-C Primary Care Provider Active Start: September 06, 2024 End: September 06, 2024 Dr. Gonzalo Lomax MD Attending Provider Active Start: September 06, 2024 End: September 06, 2024 Dr. Gonzalo Lomax MD Referring Provider Active Start: September 06, 2024 End: September 06, 2024 Team Status: Active Member Role/Relationship Status Dates Miryam Orozco , STOPER-C Primary Care Provider Active Start: September 06, 2024 Dr. Gonzalo Lomax MD Attending Provider Active Start: September 06, 2024 Dr. Gonzalo Lomax MD Referring Provider Active Start: September 06, 2024 Dr. Gonzalo Lomax MD Other Provider Active Star t: September 06, 2024 Team Status: Active Member Role/Relationship Status Dates Miryam Orozco , STOPER-C Primary Care Provider Active Start: September 12, 2024 Dr. Gonzalo Lomax MD Attending Provider Active Start: September 12, 2024 Dr. Gonzalo Lomax MD Referring Provider Active Start: September 12, 2024 Dr. Gonzalo Lomax MD Other Provider Active Star t: September 12, 2024 Team Status: Inactive Member Role/Relationship Status Dates Miryam Orozco , STOPER-C Primary Care Provider Active Start: September 19, 2024 End: October 03, 2024 Dr. Gonzalo Lomax MD Attending Provider Active Start: September 19, 2024 End: October 03, 2024 Dr. Gonzalo Lomax MD Referring Provider Active Start: September 19, 2024 End: October 03, 2024 Team Status: Active Member Role/Relationship Status Dates Miryam Orozco , STOPER-C Primary Care Provider Active Start: September 20, 2024 Dr. Gonzalo Lomax MD Attending Provider Active Start: September 20, 2024 Dr. Gonzalo Lomax MD Referring Provider Active Start: September 20, 2024 Dr. Gonzalo Lomax MD Other Provider Active Star t: September 20, 2024 Team Status: Inactive Member Role/Relationship Status Dates Miryampoonam Orozco , STOPER-C Primary Care Provider Active Start: September 28, [...] Member Role/Relationship Status Dates Miryam Tannhof , STOPER-C Primary Care Provider Active Start: October 01, 2024 Dr. Jhonatan Maxwell , DO Emergency Provider Active Start: October 01, 2024 Dr. Michelle Gallardo MD Admit Provider Active St art: October 01, 2024 Dr. Michelle Gallardo MD Other Provider Active St art: October 01, 2024 Dr. Qian Albrecht MD Other Provider Active Start: October 01, 2024 Dr. Alex Acosta , DO Attending Provider Active S tart: October 01, 2024 Dr. Alex Acosta , DO Other Provider Active Start : October 01, 2024 Dr. Russell Todd , DO Other Provider Active Star t: October 01, 2024 Team Status: Active Member Role/Relationship Status Dates Miryam Orozco STOPER-C Primary Care Provider Active Start: October 02, 2024 Dr. Jhonatan Maxwell DO Emergency Provider Active Start: October 02, 2024 Dr. Michelle Gallardo MD Admit Provider Active St art: October 02, 2024 Dr. Michelle Gallardo MD Other Provider Active St art: October 02, 2024 Dr. Qian Albrecth MD Other Provider Active Start: October 02, 2024 Dr. Alex Acosta , DO Attending Provider Active S tart: October 02, 2024 Dr. Alex Acosta , DO Other Provider Active Start : October 02, 2024 Dr. Russell Todd DO Other Provider Active Star t: October 02, 2024 Team Status: Active Member Role/Relationship Status Dates Miryam Orozco STOPER-C Primary Care Provider Active Start: October 03, 2024 Dr. Jhonatan Maxwell , DO Emergency Provider Active Start: October 03, 2024 Dr. Michelle Gallardo MD Admit Provider Active St art: October 03, 2024 Dr. Michelle Gallardo MD Other Provider Active St art: October 03, 2024 Dr. Qian Albrecht MD Other Provider Active Start: October 03, 2024 Dr. Alex Acosat DO Attending Provider Active S tart: October 03, 2024 Dr. Alex Acosta , DO Other Provider Active Start : October 03, 2024 Dr. Russell Todd DO Other Provider Active Star t: October 03, 2024 Team Status: Active Member Role/Relationship Status Dates Miryam Orozco STOPER-C Primary Care Provider Active Start: October 04, [...] Active Member Role/Relationship Status Dates Miryam Orozco STOPER-C Primary Care Provider Active Start: October 04, 2024 Dr. Gautam Hardy MD Admit Provider Active Star t: October 04, 2024 Dr. Gautam Hardy MD Attending Provider Active Start: October 04, 2024 Dr. Gautam Hardy MD Referring Provider Active Start: October 04, 2024 Dr. Qian Albrecht MD Other Provider Active Start: October 04, 2024 Team Status: Active Member Role/Relationship Status Dates Miryam Orozco STOPER-C Primary Care Provider Active Start: October 10, 2024 Dr. Gonzalo Lomax MD Attending Provider Active Start: October 10, 2024 Dr. Gonzalo Lomax MD Referring Provider Active Start: October 10, 2024 Team Status: Active Member Role/Relationship Status Dates Miryam Orozco STOPER-C Primary Care Provider Active Start: October 10, 2024 Dr. Gonzalo Lomax MD Attending Provider Active Start: October 10, 2024 Dr. Gonzalo Lomax MD Referring Provider Active Start: October 10, 2024 Dr. Gonzalo Lomax MD Other Provider Active Star t: October 10, 2024 Team Status: Active Member Role/Relationship Status Dates Miryam Orozco STOPER-C Primary Care Provider Active Start: October 11, 2024 Dr. Gautam Hardy MD Attending Provider Active Start: October 11, 2024 Dr. Gautam Hardy MD Referring Provider Active Start: October 11, 2024 Team Status: Active Member Role/Relationship Status Dates Miryam Tannhof , STOPER-C Primary Care Provider Active Start: October 11, 2024 Dr. Russell Gonzalez MD Attending Provider Active S tart: October 11, 2024 Team Status: Inactive Member Role/Relationship Status Dates Miryampoonam Kimballhof , STOPER-C Primary Care Provider Active Start: October 12, 2024 End: October 12, 2024 Dr. Alexis Friend MD Emergency Provider Active Sta rt: October 12, 2024 End: October 12, 2024 Team Status: Inactive Member Role/Relationship Status Dates Miryampoonam Kimballhopat , STOPER-C Primary Care Provider Active Start: October 14, 2024 End: October 14, 2024 Miryam Orozco , STOPER-C Referring Provider Active Start: October 14, 2024 End: October 14, 2024 Dr. William Rodgers DO Attending Provider Active Start: October 14, 2024 End: October 14, 2024 Team Status: Active Member Role/Relationship Status Dates Miryam Orozco , STOPER-C Primary Care Provider Active Start: October 14, 2024 Miryam Orozco , STOPER-C Referring Provider Active Start: October 14, 2024 Dr. William Rodgers DO Attending Provider Active Start: October 14, 2024 Dr. William Rodgers DO Other Provider Active St art: October 14, 2024 Team Status: Inactive Member Role/Relationship Status Dates Miryampoonam Orozco , STOPER-C Primary Care Provider Active Start: October 11, 2024 End: October 11, 2024 Dr. Gautam Hardy MD Attending Provider Active Start: October 11, 2024 End: October 11, 2024 Dr. Gautam Hardy MD Referring Provider Active Start: October 11, 2024 End: October 11, 2024 Team Status: Inactive Member Role/Relationship Status Dates Miryam Orozco , STOPER-C Primary Care Provider Active Start: June 22, 2024 End: June 22, 2024 Minna Villarreal NP, STOPER-C Attending Provider Active Start: June 22, 2024 End: June 22, 2024 Team Status: Active Member Role/Relationship Status Dates Miryampoonam Kimballhopat , STOPER-C Primary Care Provider Active Start: June 27, 2024 Gustavo MANZO MD Attending Provider Active Start: June 27, 2024 Team Status: Active Member Role/Relationship Status Dates Miryam Orozco , STOPER-C Primary Care Provider Active Start: July 04, 2024 Gustavo MANZO MD Attending Provider Active Start: July 04, 2024 Team Status: Active Member Role/Relationship Status Dates Miryam Orozco STOPER-C Primary Care Provider Active Start: July 11, 2024 Gustavo MANZO MD Attending Provider Active Start: July 11, 2024 Gustavo MANZO MD Referring Provider Active Start: July 11, 2024 Team Status: Active Member Role/Relationship Status Dates Miryam Orozco STOPER-C Primary Care Provider Active Start: July 18, 2024 Gustavo MANZO MD Attending Provider Active Start: July 18, 2024 Team Status: Inactive Member Role/Relationship Status Dates Miryam Orozco STOPER-C Primary Care Provider Active Start: July 20, 2024 End: July 20, 2024 Minna Villarreal NP, STOPER-C Attending Provider Active Start: July 20, 2024 End: July 20, 2024 Team Status: Active Member Role/Relationship Status Dates Miryam Orozco STOPER-C Primary Care Provider Active Start: July 25, 2024 Gustavo MANZO MD Attending Provider Active Start: July 25, 2024 Team Status: Inactive Member Role/Relationship Status Dates Miryam Orozco STOPER-C Primary Care Provider Active Start: July 29, 2024 End: July 29, 2024 Dr. Jean Paul Ha DO Attending Provider Active Start : July 29, 2024 End: July 29, 2024 Dr. Jean Paul Ha DO Emergency Provider Active Start : July 29, 2024 End: July 29, 2024 Team Status: Active Member Role/Relationship Status Dates Miryam Orozco STOPER-C Primary Care Provider Active Start: August 01, 2024 Gustavo MANZO MD Attending Provider Active Start: August 01, 2024 Gustavo MANZO MD Referring Provider Active Start: August 01, 2024 Team Status: Active Member Role/Relationship Status Dates Miryam Orozco STOPER-C Primary Care Provider Active Start: August 08, 2024 Gustavo MANZO MD Attending Provider Active Start: August 08, 2024 Team Status: Inactive Member Role/Relationship Status Dates Miryam Orozco , STOPER-C Primary Care Provider Active Start: August 12, 2024 End: August 12, 2024 Miryam Orozco , STOPER-C Referring Provider Active Start: August 12, 2024 End: August 12, 2024 Dr. Gonzalo Lomax MD Attending Provider Active Start: August 12, 2024 End: August 12, 2024 Team Status: Active Member Role/Relationship Status Dates Miryam Orozco , STOPER-C Primary Care Provider Active Start: August 15, 2024 Dr. Gonzalo Lomax MD Attending Provider Active Start: August 15, 2024 Dr. Gonzalo Lomax MD Referring Provider Active Start: August 15, 2024 Dr. Gonzalo Lomax MD Other Provider Active Star t: August 15, 2024 Team Status: Active Member Role/Relationship Status Dates Miryampoonam Orozco , STOPER-C Primary Care Provider Active Start: August 16, 2024 Gustavo MANZO MD Attending Provider Active Start: August 16, 2024 Team Status: Active Member Role/Relationship Status Dates Miryam Orozco , STOPER-C Primary Care Provider Active Start: August 18, 2024 Gustavo MANZO MD Attending Provider Active Start: August 18, 2024 Team Status: Active Member Role/Relationship Status Dates Miryam Orozco , STOPER-C Primary Care Provider Active Start: August 22, 2024 Gustavo MANZO MD Attending Provider Active Start: August 22, 2024 Gustavo MANZO MD Referring Provider Active Start: August 22, 2024 Team Status: Active Member Role/Relationship Status Dates Miryam Orozco , STOPER-C Primary Care Provider Active Start: August 22, 2024 Dr. Gonzalo Lomax MD Attending Provider Active Start: August 22, 2024 Dr. Gonzalo Lomax MD Referring Provider Active Start: August 22, 2024 Dr. Gonzalo Lomax MD Other Provider Active Star t: August 22, 2024 Team Status: Inactive Member Role/Relationship Status Dates Miryampoonam Orozco , STOPER-C Primary Care Provider Active Start: September 01, 2024 End: September 03, 2024 Dr. Gonzalo Lomax MD Attending Provider Active Start: September 01, 2024 End: September 03, 2024 Dr. Gonzalo Lomax MD Referring Provider Active Start: September 01, 2024 End: September 03, 2024 Team Status: Active Member Role/Relationship Status Dates Miryam Orozco , STOPER-C Primary Care Provider Active Start: September 01, 2024 Dr. Gonzalo Lomax MD Attending Provider Active Start: September 01, 2024 Dr. Gonzalo Lomax MD Referring Provider Active Start: September 01, 2024 Dr. Gonzalo Lomax MD Other Provider Active Star t: September 01, 2024 Team Status: Inactive Member Role/Relationship Status Dates Miryam Jigarhof , STOPER-C Primary Care Provider Active Start: September 05, 2024 End: September 05, 2024 Miryam Jigarhof , STOPER-C Referring Provider Active Start: September 05, 2024 End: September 05, 2024 Dr. Mehdi Womack MD Attending Provider Active Start: September 05, 2024 End: September 05, 2024 Team Status: Inactive Member Role/Relationship Status Dates Miryampoonam Kimballhof , STOPER-C Primary Care Provider Active Start: September 06, 2024 End: September 06, 2024 Dr. Gonzalo Lomax MD Attending Provider Active Start: September 06, 2024 End: September 06, 2024 Dr. Gonzalo Lomax MD Referring Provider Active Start: September 06, 2024 End: September 06, 2024 Team Status: Active Member Role/Relationship Status Dates Miryampoonam Orozco , STOPER-C Primary Care Provider Active Start: September 06, 2024 Dr. Gonzalo Lomax MD Attending Provider Active Start: September 06, 2024 Dr. Gonzalo Lomax MD Referring Provider Active Start: September 06, 2024 Dr. Gonzalo Lomax MD Other Provider Active Star t: September 06, 2024 Team Status: Active Member Role/Relationship Status Dates Miryampoonam Kimballhof , STOPER-C Primary Care Provider Active Start: September 12, 2024 Dr. Gonzalo Lomax MD Attending Provider Active Start: September 12, 2024 Dr. Gonzalo Lomax MD Referring Provider Active Start: September 12, 2024 Dr. Gonzalo Lomax MD Other Provider Active Star t: September 12, 2024 Team Status: Inactive Member Role/Relationship Status Dates Miryampoonam Kimballhopat , STOPER-C Primary Care Provider Active Start: September 19, 2024 End: October 03, 2024 Dr. Gonzalo Lomax MD Attending Provider Active Start: September 19, 2024 End: October 03, 2024 Dr. Gonzalo Lomax MD Referring Provider Active Start: September 19, 2024 End: October 03, 2024 Team Status: Active Member Role/Relationship Status Dates Miryam Orozco STOPER-C Primary Care Provider Active Start: September 20, 2024 Dr. Gonzalo Lomax MD Attending Provider Active Start: September 20, 2024 Dr. Gonzalo Lomax MD Referring Provider Active Start: September 20, 2024 Dr. Gonzalo Lomax MD Other Provider Active Star t: September 20, 2024 Team Status: Inactive Member Role/Relationship Status Dates Miryam Orozco STOPER-C Primary Care Provider Active Start: September 28, [...] Active Member Role/Relationship Status Dates Miryam Orozco STOPER-C Primary Care Provider Active Start: September 29, [...] Active Member Role/Relationship Status Dates Miryam Orozco STOPER-C Primary Care Provider Active Start: September 30, [...] Active Member Role/Relationship Status Dates Miryam Orozco STOPER-C Primary Care Provider Active Start: October 01, [...] Active Member Role/Relationship Status Dates Miryam Orozco STOPER-C Primary Care Provider Active Start: October 03, [...] Active Member Role/Relationship Status Dates Miryam Orozco STOPER-C Primary Care Provider Active Start: October 10, 2024 Dr. Gonzalo Lomax MD Attending Provider Active Start: October 10, 2024 Dr. Gonzalo Lomax MD Referring Provider Active Start: October 10, 2024 Team Status: Active Member Role/Relationship Status Dates Miryam Orozco , STOPER-C Primary Care Provider Active Start: October 10, 2024 Dr. Gonzalo Lomax MD Attending Provider Active Start: October 10, 2024 Dr. Gonzalo Lomax MD Referring Provider Active Start: October 10, 2024 Dr. Gonzalo Lomax MD Other Provider Active Star t: October 10, 2024 Team Status: Inactive Member Role/Relationship Status Dates Miryampoonam Orozco , STOPER-C Primary Care Provider Active Start: October 11, 2024 End: October 11, 2024 Dr. Gautam Hardy MD Attending Provider Active Start: October 11, 2024 End: October 11, 2024 Dr. Gautam Hardy MD Referring Provider Active Start: October 11, 2024 End: October 11, 2024 Team Status: Active Member Role/Relationship Status Dates Miryampoonam Kimballhof , STOPER-C Primary Care Provider Active Start: October 11, 2024 Dr. Russell Gonzalez MD Attending Provider Active S tart: October 11, 2024 Team Status: Inactive Member Role/Relationship Status Dates Miryam Jigarhof , STOPER-C Primary Care Provider Active Start: October 12, 2024 End: October 12, 2024 Dr. Alexis Friend MD Attending Provider Active Sta rt: October 12, 2024 End: October 12, 2024 Dr. Alexis Friend MD Emergency Provider Active Sta rt: October 12, 2024 End: October 12, 2024 Team Status: Inactive Member Role/Relationship Status Dates Miryampoonam Kimballhof , STOPER-C Primary Care Provider Active Start: October 14, 2024 End: October 14, 2024 Miryampoonam Kimballhof , STOPER-C Referring Provider Active Start: October 14, 2024 End: October 14, 2024 Dr. William Rodgers DO Attending Provider Active Start: October 14, 2024 End: October 14, 2024 Team Status: Active Member Role/Relationship Status Dates Miryam Jigarhof , STOPER-C Primary Care Provider Active Start: October 14, 2024 Miryampoonam Orozco , STOPER-C Referring Provider Active Start: October 14, 2024 Dr. William Rodgers DO Attending Provider Active Start: October 14, 2024 Dr. William Friend , DO Other Provider Active St art: October 14, 2024 Rotary Driller Relationship Specialty Start Date End Date Lizy Capone MD [address], [place] [id number] PCP - General 11/15/08 Mulugeta Jennings APRN.MRI MANAGER [address], [place] [id number] Escrow Processor Family [facility] 03/22/24 Rotary Driller Relationship Specialty Start Date End Date Lizy Capone MD [address], [place] [id number] PCP - General 11/15/08 Mulugeta Jennings APRN.MRI MANAGER [address], [place] [id number] Escrow Processor [facility] 03/22/24 Team Status: Active Member Role/Relationship Status Dates Miryam Orozco NP-C Primary Care Provider Active Start: June 27, 2024 Gustavo MANZO MD Attending Provider Active Start: June 27, 2024 Team Status: Active Member Role/Relationship Status Dates Miryam Orozco NP-C Primary Care Provider Active Start: July 04, 2024 Gustavo MANZO MD Attending Provider Active Start: July 04, 2024 Team Status: Active Member Role/Relationship Status Dates Miryam Orozco NP-C Primary Care Provider Active Start: July 11, [...] Member Role/Relationship Status Dates Miryam Tannhof , STOPER-C Primary Care Provider Active Start: July 20, 2024 End: July 20, 2024 Minna Cherelle VYAS, STOPER-C Attending Provider Active Start: July 20, 2024 End: July 20, 2024 Team Status: Active Member Role/Relationship Status Dates Miryam Orozco , STOPER-C Primary Care Provider Active Start: July 25, 2024 Gustavo MANZO MD Attending Provider Active Start: July 25, 2024 Team Status: Inactive Member Role/Relationship Status Dates Miryam Orozco , STOPER-C Primary Care Provider Active Start: July 29, 2024 End: July 29, 2024 Dr. Jean Paul Ha DO Attending Provider Active Start : July 29, 2024 End: July 29, 2024 Dr. Jean Paul Ha DO Emergency Provider Active Start : July 29, 2024 End: July 29, 2024 Team Status: Active Member Role/Relationship Status Dates Miryam Orozco , STOPER-C Primary Care Provider Active Start: August 01, 2024 Gustavo MANZO MD Attending Provider Active Start: August 01, 2024 Gustavo MANZO MD Referring Provider Active Start: August 01, 2024 Team Status: Active Member Role/Relationship Status Dates Miryam Orozco , STOPER-C Primary Care Provider Active Start: August 08, 2024 Gustavo MANZO MD Attending Provider Active Start: August 08, 2024 Team Status: Inactive Member Role/Relationship Status Dates Miryam Orozco , STOPER-C Primary Care Provider Active Start: August 12, 2024 End: August 12, 2024 Miryam Orozco STOPER-C Referring Provider Active Start: August 12, 2024 End: August 12, 2024 Dr. Gonzalo Lomax MD Attending Provider Active Start: August 12, 2024 End: August 12, 2024 Team Status: Active Member Role/Relationship Status Dates Miryam Orozco , STOPER-C Primary Care Provider Active Start: August 15, 2024 Dr. Gonzalo Lomax MD Attending Provider Active Start: August 15, 2024 Dr. Gonzalo Lomax MD Referring Provider Active Start: August 15, 2024 Dr. Gonzalo Lomax MD Other Provider Active Star t: August 15, 2024 Team Status: Active Member Role/Relationship Status Dates Miryam Orozco , STOPER-C Primary Care Provider Active Start: August 16, 2024 Gustavo MANZO MD Attending Provider Active Start: August 16, 2024 Team Status: Active Member Role/Relationship Status Dates Miryam Orozco , STOPER-C Primary Care Provider Active Start: August 18, 2024 Gustavo MANZO MD Attending Provider Active Start: August 18, 2024 Team Status: Active Member Role/Relationship Status Dates Miryam Orozco , STOPER-C Primary Care Provider Active Start: August 22, 2024 Gustavo MANZO MD Attending Provider Active Start: August 22, 2024 Gustavo MANZO MD Referring Provider Active Start: August 22, 2024 Team Status: Active Member Role/Relationship Status Dates Miryam Orozco , STOPER-C Primary Care Provider Active Start: August 22, 2024 Dr. Gonzalo Lomax MD Attending Provider Active Start: August 22, 2024 Dr. Gonzalo Lomax MD Referring Provider Active Start: August 22, 2024 Dr. Gonzalo Lomax MD Other Provider Active Star t: August 22, 2024 Team Status: Inactive Member Role/Relationship Status Dates Miryam Orozco , STOPER-C Primary Care Provider Active Start: September 01, 2024 End: September 03, 2024 Dr. Gonzalo Lomax MD Attending Provider Active Start: September 01, 2024 End: September 03, 2024 Dr. Gonzalo Lomax MD Referring Provider Active Start: September 01, 2024 End: September 03, 2024 Team Status: Active Member Role/Relationship Status Dates Miryam Orozco STOPER-C Primary Care Provider Active Start: September 01, 2024 Dr. Gonzalo Lomax MD Attending Provider Active Start: September 01, 2024 Dr. Gonzalo Lomax MD Referring Provider Active Start: September 01, 2024 Dr. Gonzalo Lomax MD Other Provider Active Star t: September 01, 2024 Team Status: Inactive Member Role/Relationship Status Dates Miryampoonam Kimballhof , STOPER-C Primary Care Provider Active Start: September 05, 2024 End: September 05, 2024 Miryam Orozco , STOPER-C Referring Provider Active Start: September 05, 2024 End: September 05, 2024 Dr. Mehdi Womack MD Attending Provider Active Start: September 05, 2024 End: September 05, 2024 Team Status: Inactive Member Role/Relationship Status Dates Miryam Orozco , STOPER-C Primary Care Provider Active Start: September 06, 2024 End: September 06, 2024 Dr. Gonzalo Lomax MD Attending Provider Active Start: September 06, 2024 End: September 06, 2024 Dr. Gonzalo Lomax MD Referring Provider Active Start: September 06, 2024 End: September 06, 2024 Team Status: Active Member Role/Relationship Status Dates Miryam Orozco STOPER-C Primary Care Provider Active Start: September 06, 2024 Dr. Gonzalo Lomax MD Attending Provider Active Start: September 06, 2024 Dr. Gonzalo Lomax MD Referring Provider Active Start: September 06, 2024 Dr. Gonzalo Lomax MD Other Provider Active Star t: September 06, 2024 Team Status: Active Member Role/Relationship Status Dates Miryam Orozco , STOPER-C Primary Care Provider Active Start: September 12, 2024 Dr. Gonzalo Lomax MD Attending Provider Active Start: September 12, 2024 Dr. Gonzalo Lomax MD Referring Provider Active Start: September 12, 2024 Dr. Gonzalo Lomax MD Other Provider Active Star t: September 12, 2024 Team Status: Inactive Member Role/Relationship Status Dates Miryam Orozco , STOPER-C Primary Care Provider Active Start: September 19, 2024 End: October 03, 2024 Dr. Gonzalo Lomax MD Attending Provider Active Start: September 19, 2024 End: October 03, 2024 Dr. Gonzalo Lomax MD Referring Provider Active Start: September 19, 2024 End: October 03, 2024 Team Status: Active Member Role/Relationship Status Dates Miryam Orozco , STOPER-C Primary Care Provider Active Start: September 20, 2024 Dr. Gonzalo Lomax MD Attending Provider Active Start: September 20, 2024 Dr. Gonzalo Lomax MD Referring Provider Active Start: September 20, 2024 Dr. Gonzalo Lomax MD Other Provider Active Star t: September 20, 2024 Team Status: Inactive Member Role/Relationship Status Dates Miryam Oorzco , STOPER-C Primary Care Provider Active Start: September 28, [...] Start: September 29, 2024 Dr. Jhonatan Maxwell , Emergency Provider Active Start: September 29, 2024 [...] 01, 2024 Dr. Alex Acosta , DO Other [...] Member Role/Relationship Status Dates Miryam Orozco , STOPER-C Primary Care Provider Active Start: October 10, 2024 Dr. Gonzalo Lomax MD Attending Provider Active Start: October 10, 2024 Dr. Gonzalo Lomax MD Referring Provider Active Start: October 10, 2024 Dr. Gonzalo Lomax MD Other Provider Active Star t: October 10, 2024 Team Status: Inactive Member Role/Relationship Status Dates Miryampoonam Orozco , STOPER-C Primary Care Provider Active Start: October 11, 2024 End: October 11, 2024 Dr. Gautam Hardy MD Attending Provider Active Start: October 11, 2024 End: October 11, 2024 Dr. Gautam Hardy MD Referring Provider Active Start: October 11, 2024 End: October 11, 2024 Team Status: Active Member Role/Relationship Status Dates Miryampoonam Kimballhof , STOPER-C Primary Care Provider Active Start: October 11, 2024 Dr. Russell Gonzalez MD Attending Provider Active S tart: October 11, 2024 Team Status: Inactive Member Role/Relationship Status Dates Miryampoonam Kimballhof , STOPER-C Primary Care Provider Active Start: October 12, 2024 End: October 12, 2024 Dr. Alexis Friend MD Attending Provider Active Sta rt: October 12, 2024 End: October 12, 2024 Dr. Alexis Friend MD Emergency Provider Active Sta rt: October 12, 2024 End: October 12, 2024 Team Status: Inactive Member Role/Relationship Status Dates Miryampoonam Serraf , STOPER-C Primary Care Provider Active Start: October 14, 2024 End: October 14, 2024 Miryampoonam Orozco , STOPER-C Referring Provider Active Start: October 14, 2024 End: October 14, 2024 Dr. William Rodgers DO Attending Provider Active Start: October 14, 2024 End: October 14, 2024 Team Status: Active Member Role/Relationship Status Dates Miryampoonam Orozco , STOPER-C Primary Care Provider Active Start: October 14, 2024 Miryam Orozco , STOPER-C Referring Provider Active Start: October 14, 2024 Dr. William Rodgers DO Attending Provider Active Start: October 14, 2024 Dr. William Rodgers DO Other Provider Active St art: October 14, 2024 Team Status: Active Member Role/Relationship Status Dates Miryam Orozco STOPER-C Primary Care Provider Active Start: October 24, 2024 Dr. Gonzalo Lomax MD Attending Provider Active Start: October 24, 2024 Dr. Gonzalo Lomax MD Referring Provider Active Start: October 24, 2024 Team Status: Active Member Role/Relationship Status Dates Miryam Orozco STOPER-C Primary Care Provider Active Start: October 25, 2024 Dr. Gonzalo Lomax MD Attending Provider Active Start: October 25, 2024 Dr. Gonzalo Lomax MD Referring Provider Active Start: October 25, 2024 Dr. Gonzalo Lomax MD Other Provider Active Star t: October 25, 2024 Team Status: Inactive Member Role/Relationship Status Dates Miryam Orozco STOPER-C Primary Care Provider Active Start: October 25, 2024 End: October 25, 2024 Miryam Orozco STOPER-C Referring Provider Active Start: October 25, 2024 End: October 25, 2024 Dr. Norberto Jackson MD Attending Provider Active S tart: October 25, 2024 End: October 25, 2024 Team Status: Active Member Role/Relationship Status Dates Dr. Lizy Capone MD Primary Care Provider Active Team Status: Active Member Role/Relationship Status Dates Miryam Orozco STOPER-C Primary Care Provider Active Start: July 04, 2024 Gustavo MANZO MD Attending Provider Active Start: July 04, 2024 Team Status: Active Member Role/Relationship Status Dates Miryam Orozco STOPER-C Primary Care Provider Active Start: July 11, 2024 Gustavo MANZO MD Attending Provider Active Start: July 11, 2024 Gustavo MANZO MD Referring Provider Active Start: July 11, 2024 Team Status: Active Member Role/Relationship Status Dates Miryam Orozco STOPER-C Primary Care Provider Active Start: July 18, 2024 Gustavo MANZO MD Attending Provider Active Start: July 18, 2024 Team Status: Inactive Member Role/Relationship Status Dates Miryam Orozco STOPER-C Primary Care Provider Active Start: July 20, 2024 End: July 20, 2024 Minna Villarreal NP, STOPER-C Attending Provider Active Start: July 20, 2024 End: July 20, 2024 Team Status: Active Member Role/Relationship Status Dates Miryam Orozco , STOPER-C Primary Care Provider Active Start: July 25, 2024 Gustavo MANZO MD Attending Provider Active Start: July 25, 2024 Team Status: Inactive Member Role/Relationship Status Dates Miryampoonam Orozco , STOPER-C Primary Care Provider Active Start: July 29, 2024 End: July 29, 2024 Dr. Jean Paul Ha DO Attending Provider Active Start : July 29, 2024 End: July 29, 2024 Dr. Jean Paul Ha DO Emergency Provider Active Start : July 29, 2024 End: July 29, 2024 Team Status: Active Member Role/Relationship Status Dates Miryam Orozco , STOPER-C Primary Care Provider Active Start: August 01, 2024 Gustavo MANZO MD Attending Provider Active Start: August 01, 2024 Gustavo MANZO MD Referring Provider Active Start: August 01, 2024 Team Status: Active Member Role/Relationship Status Dates Miryam Orozco , STOPER-C Primary Care Provider Active Start: August 08, 2024 Gustavo MANZO MD Attending Provider Active Start: August 08, 2024 Team Status: Inactive Member Role/Relationship Status Dates Miryampoonam Orozco , STOPER-C Primary Care Provider Active Start: August 12, 2024 End: August 12, 2024 Miryam Orozco , STOPER-C Referring Provider Active Start: August 12, 2024 End: August 12, 2024 Dr. Gonzalo Lomax MD Attending Provider Active Start: August 12, 2024 End: August 12, 2024 Team Status: Active Member Role/Relationship Status Dates Miryam Orozco , STOPER-C Primary Care Provider Active Start: August 15, 2024 Dr. Gonzalo Lomax MD Attending Provider Active Start: August 15, 2024 Dr. Gonzalo Lomax MD Referring Provider Active Start: August 15, 2024 Dr. Gonzalo Lomax MD Other Provider Active Star t: August 15, 2024 Team Status: Active Member Role/Relationship Status Dates Miryam Orozco , STOPER-C Primary Care Provider Active Start: August 16, 2024 Gustavo MANZO MD Attending Provider Active Start: August 16, 2024 Team Status: Active Member Role/Relationship Status Dates Miryam Orozco , STOPER-C Primary Care Provider Active Start: August 18, 2024 Gustavo MANZO MD Attending Provider Active Start: August 18, 2024 Team Status: Active Member Role/Relationship Status Dates Miryampoonam Kimballhof , STOPER-C Primary Care Provider Active Start: August 22, 2024 Gustavo MANZO MD Attending Provider Active Start: August 22, 2024 Gustavo MANZO MD Referring Provider Active Start: August 22, 2024 Team Status: Active Member Role/Relationship Status Dates Miryam Orozco , STOPER-C Primary Care Provider Active Start: August 22, 2024 Dr. Gonzalo Lomax MD Attending Provider Active Start: August 22, 2024 Dr. Gonzalo Lomax MD Referring Provider Active Start: August 22, 2024 Dr. Gonzalo Lomax MD Other Provider Active Star t: August 22, 2024 Team Status: Inactive Member Role/Relationship Status Dates Miryam Orozco , STOPER-C Primary Care Provider Active Start: September 01, 2024 End: September 03, 2024 Dr. Gonzalo Lomax MD Attending Provider Active Start: September 01, 2024 End: September 03, 2024 Dr. Gonzalo Lomax MD Referring Provider Active Start: September 01, 2024 End: September 03, 2024 Team Status: Active Member Role/Relationship Status Dates Miryam Orozco , STOPER-C Primary Care Provider Active Start: September 01, 2024 Dr. Gonzalo Lomax MD Attending Provider Active Start: September 01, 2024 Dr. Gonzalo Lomax MD Referring Provider Active Start: September 01, 2024 Dr. Gonzalo Lomax MD Other Provider Active Star t: September 01, 2024 Team Status: Inactive Member Role/Relationship Status Dates Miryampoonam Kimballhopat , STOPER-C Primary Care Provider Active Start: September 05, 2024 End: September 05, 2024 Miryampoonam Orozco , STOPER-C Referring Provider Active Start: September 05, 2024 End: September 05, 2024 Dr. Mehdi Womack MD Attending Provider Active Start: September 05, 2024 End: September 05, 2024 Team Status: Inactive Member Role/Relationship Status Dates Miryampoonam Kimballhof , STOPER-C Primary Care Provider Active Start: September 06, 2024 End: September 06, 2024 Dr. Gonzalo Lomax MD Attending Provider Active Start: September 06, 2024 End: September 06, 2024 Dr. Gonzalo Lomax MD Referring Provider Active Start: September 06, 2024 End: September 06, 2024 Team Status: Active Member Role/Relationship Status Dates Miryam Orozco STOPER-C Primary Care Provider Active Start: September 06, 2024 Dr. Gonzalo Lomax MD Attending Provider Active Start: September 06, 2024 Dr. Gonzalo Lomax MD Referring Provider Active Start: September 06, 2024 Dr. Gonzalo Lomax MD Other Provider Active Star t: September 06, 2024 Team Status: Active Member Role/Relationship Status Dates Miryam Orozco STOPER-C Primary Care Provider Active Start: September 12, 2024 Dr. Gonzalo Lomax MD Attending Provider Active Start: September 12, 2024 Dr. Gonzalo Lomax MD Referring Provider Active Start: September 12, 2024 Dr. Gonzalo Lomax MD Other Provider Active Star t: September 12, 2024 Team Status: Inactive Member Role/Relationship Status Dates Miryam Orozco , STOPER-C Primary Care Provider Active Start: September 19, 2024 End: October 03, 2024 Dr. Gonzalo Lomax MD Attending Provider Active Start: September 19, 2024 End: October 03, 2024 Dr. Gonzalo Lomax MD Referring Provider Active Start: September 19, 2024 End: October 03, 2024 Team Status: Active Member Role/Relationship Status Dates Miryam Orozco STOPER-C Primary Care Provider Active Start: September 20, 2024 Dr. Gonzalo Lomax MD Attending Provider Active Start: September 20, 2024 Dr. Gonzalo Lomax MD Referring Provider Active Start: September 20, 2024 Dr. Gonzalo Lomax MD Other Provider Active Star t: September 20, 2024 Team Status: Inactive Member Role/Relationship Status Dates Miryam Orozco , STOPER-C Primary Care Provider Active Start: September 28, [...] End: October 04, 2024 Dr. Alex Acosta , Attending Provider Active S tart: September 28, [...] 01, 2024 Dr. Alex Acosta , DO Other Provider Active Start : October 01, 2024 Dr. Russell Todd DO Other Provider Active Star t: October 01, 2024 Team Status: Active Member Role/Relationship Status Dates Miryam Orozco STOPER-C Primary Care Provider Active Start: October 02, [...] Inactive Member Role/Relationship Status Dates Miryam Orozco STOPER-C Primary Care Provider Active Start: October 04, 2024 Dr. Chayo Hernandez MD Attending Provider Active Start: October 04, 2024 Team Status: Active Member Role/Relationship Status Dates Miryam Orozco STOPER-C Primary Care Provider Active Start: October 04, 2024 Dr. Jhonatan Maxwell , Emergency Provider Active Start: October 04, 2024 [...] Inactive Member Role/Relationship Status Dates Miryam Orozco STOPER-C Primary Care Provider Active Start: October 04, [...] Active Member Role/Relationship Status Dates Miryam Orozco STOPER-C Primary Care Provider Active Start: October 10, 2024 Dr. Gonzalo Lomax MD Attending Provider Active Start: October 10, 2024 Dr. Gonzalo Lomax MD Referring Provider Active Start: October 10, 2024 Dr. Gonzalo Lomax MD Other Provider Active Star t: October 10, 2024 Team Status: Inactive Member Role/Relationship Status Dates Miryam Orozco STOPER-C Primary Care Provider Active Start: October 11, 2024 End: October 11, 2024 Dr. Gautam Hardy MD Attending Provider Active Start: October 11, 2024 End: October 11, 2024 Dr. Gautam Hardy MD Referring Provider Active Start: October 11, 2024 End: October 11, 2024 Team Status: Active Member Role/Relationship Status Dates Miryam Orozco STOPER-C Primary Care Provider Active Start: October 11, 2024 Dr. Russell Gonzalez MD Attending Provider Active S tart: October 11, 2024 Team Status: Inactive Member Role/Relationship Status Dates Miryam Orozco , STOPER-C Primary Care Provider Active Start: October 12, 2024 End: October 12, 2024 Dr. Alexis Friend MD Attending Provider Active Sta rt: October 12, 2024 End: October 12, 2024 Dr. Alexis Friend MD Emergency Provider Active Sta rt: October 12, 2024 End: October 12, 2024 Team Status: Inactive Member Role/Relationship Status Dates Miryampoonam Orozco , STOPER-C Primary Care Provider Active Start: October 14, 2024 End: October 14, 2024 Miryampoonam Orozco , STOPER-C Referring Provider Active Start: October 14, 2024 End: October 14, 2024 Dr. William Rodgers DO Attending Provider Active Start: October 14, 2024 End: October 14, 2024 Team Status: Active Member Role/Relationship Status Dates Miryampoonam Orozco , STOPER-C Primary Care Provider Active Start: October 14, 2024 Miryam Orozco , STOPER-C Referring Provider Active Start: October 14, 2024 Dr. William Rodgers DO Attending Provider Active Start: October 14, 2024 Dr. William Rodgers DO Other Provider Active St art: October 14, 2024 Team Status: Active Member Role/Relationship Status Dates Miryam Orozco , STOPER-C Primary Care Provider Active Start: October 24, 2024 Dr. Gonzalo Lomax MD Attending Provider Active Start: October 24, 2024 Dr. Gonzalo Lomax MD Referring Provider Active Start: October 24, 2024 Team Status: Active Member Role/Relationship Status Dates Miryam Orozco , STOPER-C Primary Care Provider Active Start: October 25, 2024 Dr. Gonzalo Lomax MD Attending Provider Active Start: October 25, 2024 Dr. Gonzalo Lomax MD Referring Provider Active Start: October 25, 2024 Dr. Gonzalo Lomax MD Other Provider Active Star t: October 25, 2024 Team Status: Inactive Member Role/Relationship Status Dates Miryampoonam Orozco , STOPER-C Primary Care Provider Active Start: October 25, 2024 End: October 25, 2024 Miryampoonam Orozco , STOPER-C Referring Provider Active Start: October 25, 2024 End: October 25, 2024 Dr. Norberto Jackson MD Attending Provider Active S tart: October 25, 2024 End: October 25, 2024 Team Status: Inactive Member Role/Relationship Status Dates Dr. cJ Mireles , Emergency Provider Activ e Start: October 26, 2024 End: October 26, 2024 Dr. Lizy Capone MD Primary Care Provider Active Start: October 26, 2024 End: October 26, 2024 Rotary Driller Relationship Specialty Start Date End Date Lizy Capone MD [address], [place] [address] PCP - General 11/15/08 Mulugeta Jennings APRN.MRI MANAGER [address], [place] [id number] [employer] [facility] 03/22/24 Team Status: Active Member Role/Relationship Status Dates Dr. Lizy Capone MD Primary Care Provider Active Start: October 29, 2024 Dr. Anthony Taylor , Emergency Provider Active Start: October 29, 2024 Dr. Russell Todd DO Admit Provider Active Star t: October 29, 2024 Dr. Russell Todd DO Attending Provider Active Start: October 29, 2024 Team Status: Active Member Role/Relationship Status Dates Dr. Lizy Capone MD Primary Care Provider Active Start: October 29, 2024 Dr. Anthony Taylor DO Emergency Provider Active Start: October 29, 2024 Dr. Russell Todd DO Admit Provider Active Star t: October 29, 2024 Dr. Russell Todd DO Attending Provider Active Start: October 29, 2024 Dr. Russell Todd DO Other Provider Active Star t: October 29, 2024 Team Status: Inactive Member Role/Relationship Status Dates Dr. Lizy Capone MD Primary Care Provider Active Start: October 29, 2024 End: November 01, 2024 Dr. Anthony Taylor DO Emergency Provider Active Start: October 29, 2024 End: November 01, 2024 Dr. Russell Todd DO Admit Provider Active Star t: October 29, 2024 End: November 01, 2024 Dr. Russell Todd DO Other Provider Active Star t: October 29, 2024 End: November 01, 2024 Dr. Donell Ferrara MD Attending Provider Active Start: October 29, 2024 End: November 01, 2024 Team Status: Active Member Role/Relationship Status Dates Dr. Lizy Capone MD Primary Care Provider Active Start: October 30, 2024 Dr. Anthony Taylor DO Emergency Provider Active Start: October 30, 2024 Dr. Russell Todd DO Admit Provider Active Star t: October 30, 2024 Dr. Russell Todd DO Other Provider Active Star t: October 30, 2024 Dr. Donell Ferrara MD Attending Provider Active Start: October 30, 2024 Dr. Donell Ferrara MD Other Provider Active Start: October 30, 2024 Team Status: Active Member Role/Relationship Status Dates Dr. Lizy Capone MD Primary Care Provider Active Start: October 31, 2024 Dr. Anthony Taylor DO Emergency Provider Active Start: October 31, 2024 Dr. Russell Todd DO Admit Provider Active Star t: October 31, 2024 Dr. Russell Todd DO Other Provider Active Star t: October 31, 2024 Dr. Donell Ferrara MD Attending Provider Active Start: October 31, 2024 Dr. Donell Ferrara MD Other Provider Active Start: October 31, 2024 Team Status: Active Member Role/Relationship Status Dates Dr. Lizy Capone MD Primary Care Provider Active Start: November 01, 2024 Dr. Anthony Taylor DO Emergency Provider Active Start: November 01, 2024 Dr. Russell Todd DO Admit Provider Active Star t: November 01, 2024 Dr. Russell Todd DO Other Provider Active Star t: November 01, 2024 Dr. Donell Ferrara MD Attending Provider Active Start: November 01, 2024 Dr. Donell Ferrara MD Other Provider Active Start: November 01, 2024 Team Status: Active Member Role/Relationship Status Dates Miryam Orozco , STOPER-C Primary Care Provider Active Start: July 11, 2024 Gustavo MANZO MD Attending Provider Active Start: July 11, 2024 Gustavo MANZO MD Referring Provider Active Start: July 11, 2024 Team Status: Active Member Role/Relationship Status Dates Miryam Orozco , STOPER-C Primary Care Provider Active Start: July 18, 2024 Gustavo MANZO MD Attending Provider Active Start: July 18, 2024 Team Status: Inactive Member Role/Relationship Status Dates Miryam Orozco , STOPER-C Primary Care Provider Active Start: July 20, 2024 End: July 20, 2024 Minna Villarreal NP, STOPER-C Attending Provider Active Start: July 20, 2024 End: July 20, 2024 Team Status: Active Member Role/Relationship Status Dates Miryam Orozco , STOPER-C Primary Care Provider Active Start: July 25, 2024 Gustavo MANZO MD Attending Provider Active Start: July 25, 2024 Team Status: Inactive Member Role/Relationship Status Dates Miryam Orozco STOPER-C Primary Care Provider Active Start: July 29, 2024 End: July 29, 2024 Dr. Jean Paul Ha DO Attending Provider Active Start : July 29, 2024 End: July 29, 2024 Dr. Jean Paul Ha DO Emergency Provider Active Start : July 29, 2024 End: July 29, 2024 Team Status: Active Member Role/Relationship Status Dates Miryam Orozco STOPER-C Primary Care Provider Active Start: August 01, 2024 Gustavo MANZO MD Attending Provider Active Start: August 01, 2024 Gustavo MANZO MD Referring Provider Active Start: August 01, 2024 Team Status: Active Member Role/Relationship Status Dates Miryam Orozco STOPER-C Primary Care Provider Active Start: August 08, 2024 Gustavo MANZO MD Attending Provider Active Start: August 08, 2024 Team Status: Inactive Member Role/Relationship Status Dates Miryam Orozco STOPER-C Primary Care Provider Active Start: August 12, 2024 End: August 12, 2024 Miryam Orozco STOPER-C Referring Provider Active Start: August 12, 2024 End: August 12, 2024 Dr. Gonzalo Lomax MD Attending Provider Active Start: August 12, 2024 End: August 12, 2024 Team Status: Active Member Role/Relationship Status Dates Miryam Orozco STOPER-C Primary Care Provider Active Start: August 15, 2024 Dr. Gonzalo Lomax MD Attending Provider Active Start: August 15, 2024 Dr. Gonzalo Lomax MD Referring Provider Active Start: August 15, 2024 Dr. Gonzalo Lomax MD Other Provider Active Star t: August 15, 2024 Team Status: Active Member Role/Relationship Status Dates Miryam Orozco , STOPER-C Primary Care Provider Active Start: August 16, 2024 Gustavo MANZO MD Attending Provider Active Start: August 16, 2024 Team Status: Active Member Role/Relationship Status Dates Miryam Orozco STOPER-C Primary Care Provider Active Start: August 18, 2024 Gustavo MANZO MD Attending Provider Active Start: August 18, 2024 Team Status: Active Member Role/Relationship Status Dates Miryam Orozco STOPER-C Primary Care Provider Active Start: August 22, 2024 Gustavo MANZO MD Attending Provider Active Start: August 22, 2024 Gustavo MANZO MD Referring Provider Active Start: August 22, 2024 Team Status: Active Member Role/Relationship Status Dates Miryam Orozco , STOPER-C Primary Care Provider Active Start: August 22, 2024 Dr. Gonzalo Lomax MD Attending Provider Active Start: August 22, 2024 Dr. Gonzalo Lomax MD Referring Provider Active Start: August 22, 2024 Dr. Gonzalo Lomax MD Other Provider Active Star t: August 22, 2024 Team Status: Inactive Member Role/Relationship Status Dates Dr. Lizy Capone MD Primary Care Provider Active Start: August 23, 2024 End: August 23, 2024 Dr. Gustavo Castorena MD Attending Provider Active Start: August 23, 2024 End: August 23, 2024 Team Status: Inactive Member Role/Relationship Status Dates Dr. Jc Mireles DO Attending Provider Activ e Start: October 26, 2024 End: October 26, 2024 Dr. Jc Mireles DO Emergency Provider Activ e Start: October 26, 2024 End: October 26, 2024 Dr. Lizy Capone MD Primary Care Provider Active Start: October 26, 2024 End: October 26, 2024 Team Status: Inactive Member Role/Relationship Status Dates Dr. Lizy Capone MD Primary Care Provider Active Start: August 01, 2024 End: August 01, 2024 Minna Villarreal NP, STOPER-C Attending Provider Active Start: August 01, 2024 End: August 01, 2024 Team Status: Inactive Member Role/Relationship Status Dates Dr. Lizy Capone MD Primary Care Provider Active Start: August 23, 2024 End: August 23, 2024 Dr. Gustavo Castorena MD Attending Provider Active Start: August 23, 2024 End: August 23, 2024 Team Status: Inactive Member Role/Relationship Status Dates Dr. Jc Mireles DO Attending Provider Activ e Start: October 26, 2024 End: October 26, 2024 Dr. Jc Mireles DO Emergency Provider Activ e Start: October 26, 2024 End: October 26, 2024 Dr. Lizy Capone MD Primary Care Provider Active Start: October 26, 2024 End: October 26, 2024 Team Status: Inactive Member Role/Relationship Status Dates Dr. Lizy Capone MD Primary Care Provider Active Start: October 29, 2024 End: November 01, 2024 Dr. Anthony Taylor DO Emergency Provider Active Start: October 29, 2024 End: November 01, 2024 Dr. Russell Todd DO Admit Provider Active Star t: October 29, 2024 End: November 01, 2024 Dr. Russell Todd DO Other Provider Active Star t: October 29, 2024 End: November 01, 2024 Dr. Donell Ferrara MD Attending Provider Active Start: October 29, 2024 End: November 01, 2024 Team Status: Active Member Role/Relationship Status Dates Dr. Lizy Capone MD Primary Care Provider Active Start: October 29, 2024 Dr. Anthony Taylor DO Emergency Provider Active Start: October 29, 2024 Dr. Russell Todd DO Admit Provider Active Star t: October 29, 2024 Dr. Russell Todd DO Attending Provider Active Start: October 29, 2024 Dr. Russell Todd DO Other Provider Active Star t: October 29, 2024 Team Status: Active Member Role/Relationship Status Dates Dr. Lizy Capone MD Primary Care Provider Active Start: October 30, 2024 Dr. Anthony Taylor DO Emergency Provider Active Start: October 30, 2024 Dr. Russell Todd DO Admit Provider Active Star t: October 30, 2024 Dr. Russell Todd DO Other Provider Active Star t: October 30, 2024 Dr. Donell Ferrara MD Attending Provider Active Start: October 30, 2024 Dr. Donell Ferrara MD Other Provider Active Start: October 30, 2024 Team Status: Active Member Role/Relationship Status Dates Dr. Lizy Capone MD Primary Care Provider Active Start: October 31, 2024 Dr. Anthony Taylor DO Emergency Provider Active Start: October 31, 2024 Dr. Russell Todd DO Admit Provider Active Star t: October 31, 2024 Dr. Russell Todd DO Other Provider Active Star t: October 31, 2024 Dr. Donell Ferrara MD Attending Provider Active Start: October 31, 2024 Dr. Donell Ferrara MD Other Provider Active Start: October 31, 2024 Team Status: Active Member Role/Relationship Status Dates Dr. Lizy Capone MD Primary Care Provider Active Start: November 01, 2024 Dr. Anthony Taylor DO Emergency Provider Active Start: November 01, 2024 Dr. Russell Todd DO Admit Provider Active Star t: November 01, 2024 Dr. Russell Todd DO Other Provider Active Star t: November 01, 2024 Dr. Donell Ferrara MD Attending Provider Active Start: November 01, 2024 Dr. Donell Ferrara MD Other Provider Active Start: November 01, 2024 Team Status: Inactive Member Role/Relationship Status Dates BROOKLYN Aguillon Primary Care Provider Active Start: October 24, 2024 End: November 03, 2024 Dr. Gonzalo Lomax MD Attending Provider Active Start: October 24, 2024 End: November 03, 2024 Dr. Gonzalo Lmoax MD Referring Provider Active Start: October 24, 2024 End: November 03, 2024 Rotary Driller Relationship Specialty Start Date End Date Lizy Capone MD [address] [place] [address] PCP - General 11/15/08 Mulugeta Jennings APRN.MRI MANAGER [address] [place] [address] [facility] Rotary Driller Relationship Specialty Start Date End Date Lizy Capone MD [address] [place] [address] PCP - General 11/15/08 Mulugeta Jennings, BUSINESS OFFICE TECHNOLOGY INSTRUCTOR.MRI MANAGER [address] [place] [address] Escrow [employer]or [facility] 03/22/24 Rotary Driller Relationship Specialty Start Date End Date Lizy Capone MD [address] [place] [address] PCP - General 11/15/08 Mulugeta Jennings, BUSINESS OFFICE TECHNOLOGY INSTRUCTOR.MRI MANAGER [address] [place] [address] [employer] [facility] 03/22/24 Team Status: Active Member Role/Relationship Status Dates BROOKLYN Aguillon Primary Care Provider Active Start: July 18, 2024 Gustavo MANZO MD Attending Provider Active Start: July 18, 2024 Team Status: Inactive Member Role/Relationship Status Dates BROOKLYN Aguillon Primary Care Provider Active Start: July 20, 2024 End: July 20, 2024 Minna Villarreal STOPER, STOPER-C Attending Provider Active Start: July 20, 2024 End: July 20, 2024 Team Status: Active Member Role/Relationship Status Dates Miryam Orozco STOPER-C Primary Care Provider Active Start: July 25, 2024 Gustavo MANZO MD Attending Provider Active Start: July 25, 2024 Team Status: Inactive Member Role/Relationship Status Dates Miryam Orozco , STOPER-C Primary Care Provider Active Start: July 29, 2024 End: July 29, 2024 Dr. Jean Paul Ha DO Attending Provider Active Start : July 29, 2024 End: July 29, 2024 Dr. Jean Paul Ha DO Emergency Provider Active Start : July 29, 2024 End: July 29, 2024 Team Status: Active Member Role/Relationship Status Dates Miryam Orozco , STOPER-C Primary Care Provider Active Start: August 01, 2024 Gustavo MANZO MD Attending Provider Active Start: August 01, 2024 Gustavo MANZO MD Referring Provider Active Start: August 01, 2024 Team Status: Inactive Member Role/Relationship Status Dates Dr. Lizy Capone MD Primary Care Provider Active Start: August 01, 2024 End: August 01, 2024 Minna Villarreal STOPER, STOPER-C Attending Provider Active Start: August 01, 2024 End: August 01, 2024 Team Status: Active Member Role/Relationship Status Dates Miryam Orozco , STOPER-C Primary Care Provider Active Start: October 11, 2024 Dr. Russell Gonzalez MD Attending Provider Active S tart: October 11, 2024 Dr. Gautam Hardy MD Referring Provider Active Start: October 11, 2024 Team Status: Inactive Member Role/Relationship Status Dates Miryam Orozco , STOPER-C Primary Care Provider Active Start: October 24, 2024 End: November 03, 2024 Dr. Gonzalo Lomax MD Attending Provider Active Start: October 24, 2024 End: November 03, 2024 Dr. Gonzalo Lomax MD Referring Provider Active Start: October 24, 2024 End: November 03, 2024 Team Status: Active Member Role/Relationship Status Dates Dr. Lizy Capone MD Primary Care Provider Active Start: November 07, 2024 Ja Steffen MANZO MD Attending Provider Active S tart: November 07, 2024 Team Status: Inactive Member Role/Relationship Status Dates Miryam Orozco NP-Angel Referring Provider Active Start: November 11, 2024 End: November 11, 2024 Dr. Chayo Hernandez MD Attending Provider Active Start: November 11, 2024 End: November 11, 2024 Dr. Lizy Capone MD Primary Care Provider Active Start: November 11, 2024 End: November 11, 2024 Goals (unrecognized section and content) Goals [...] er: Roque Delgado MD - Comment: ROSENDO L4-5, 5-S1 bilateral) iohexol IV injection (OMNIPAQUE 300) (CANCELED) X (OR/PROCEDURE) PRN, Starting on Thu12/25/21 at 1252, Until Thu12/25/21 at 1259, Intraprocedure 1252 (Given - Provid er: Roque Delgado MD - Comment: ROSENDO L4-5, 5-S1 injection bilateral) lidocaine (PF) 10 [...] anticoagulants (e.g. enoxaparin, heparin)., Indications: Venous Thromboembolism 224 (Given - Provider: Linda Kennedy RN) 08 (Given - Provider: Steffany Mishra, KEVIN) Atorvastatin (LIPITOR) tablet 40 mg 40 mg, [...] modification) on Thu05/11/24 at 0945, Until Discontinued 08 (Given - Provider: Ebony Fuentes RN)2038 [...] 2234 (Given - Provider: Linda Kennedy RN) 08 (Given - Provider: Steffany Mishra, KEVIN) furOSEmide (LASIX) injection 20 mg (CANCELED) 20 mg, Intravenous, DAILY, First dose (after last reorder) on Thu05/15/24 at 0915, Until Discontinued, Administer by slow IV push at a rate not exceeding 40mg/min 0829 (Given - Provider: Ebony Fuentes RN) 0842 (Given - Provider: Ebony Fuentes RN) furOSEmide (LASIX) tablet 40 mg 40 mg, Oral, DAILY, First dose (after last modification) on Thu05/18/24 at 0900, Until Discontinued 0801 (Given - Provider: Steffany Mishra RN) Lacosamide [...] Fuentes RN) 0017 (Given - Provider: Linda Kennedy, KEVIN) Lacosamide (VIMPAT) tablet 100 mg 100 mg, [...] RN) 0527 (Given - Provider: Linda Kennedy, KEVIN) Levothyroxine (SYNTHROID) tablet 125 mcg 125 mcg, Oral, DAILY BEFORE BREAKFAST, First dose (after last modification) on Thu05/18/24 at 0600, Until Discontinued 0538 (Given - Provider: Linda Kennedy, KEVIN) ProSource TF 1 Package (CANCELED) 1 Package, [...] Ebony Fuentes RN)1742 (Given - Provider: Ginger Vance, RN)2133 (Given - Provider: Linda Kennedy RN) 0050 (Given - Provider: Linda Kennedy RN)0535 (Given - Provider: Linda Kennedy RN)0904 (Given - Provider: Ebony Fuentes RN)1323 (Given - Provider: Ebony Fuentes RN)1720 (Given - Provider: Ebony Fuentes RN)205 (Not Given - Provider: Linda Kennedy RN [...] CONTINUOUS, Starting on 05/07/24 at 1100, Until 05/18/24 at 1837, Dosing: Continuous, Starting rate (mL/hr): [...] Comment: NG clogged, unable to place new NG, aware) PRN Medication Order 05/16/2024 05/17/2024 05/18/2024 Acetaminophen (TYLENOL) tablet 650 mg 650 mg, Oral, EVERY 4 HOURS NEEDED, Starting on Thu05/16/24 at 1328, Until Thu05/18/24 at 1837, Mild Pain, Moderate Pain, Oral temp > 100.4 F, Maximum dose of acetaminophen is 4000 mg from all sources in 24 hours. 1741 (Given - Provider: Ginger Vance RN) 0842 (Given - Provider: Ebony Fuentes RN) bisacodyl (DULCOLAX) suppository 10 mg 10 mg, Rectal, DAILY NEEDED, Starting on Thu05/07/24 at 0800, Until Thu05/18/24 at 1837, Constipation 2nd Line guaiFENesin (ROBITUSSIN) oral solution 200 mg 200 mg, Oral, EVERY 6 HOURS NEEDED, Starting on Thu05/07/24 at 0734, Until Thu05/18/24 at 1837, Cough hydrALAZINE (APRESOLINE) injection 5 mg 5 mg, Intravenous, EVERY 4 HOURS NEEDED, Starting on Thu05/10/24 at 0638, Until Thu05/18/24 at 1837, SBP [...] dose, On Thu05/18/23 at 1330 Given by [facility] 05/18/2023 1:26 PM EST 100 mg lidocaine (PF) 20 mg/mL (2 %) 200 mg injection (XYLOCAINE) 200 mg, OTHER, ONCE, 1 dose, On Thu05/18/23 at 1330 Given by [facility] 05/18/2023 1:26 PM EST 200 mg methylPREDNISolone acetate 40 mg injection (DEPO-Medrol) 40 mg, OTHER, ONCE, 1 dose, On Thu05/18/23 at 1330 Given by [facility] 05/18/2023 1:26 PM EST 40 mg Inactive Administered Medications - up to 3 most recent administrations Medication Order MAR Action Action Date Dose Rate Site 0.9% NaCl 10 mL flush 10 mL, OTHER, ONCE, 1 dose, On Thu07/15/23 at 0900 Given by [facility] 07/15/2023 9:10 AM EDT 10 mL bupivacaine(PF) 0.75 % (7.5 mg/mL) 7.5 mg injection (MARCAINE PF) 7.5 mg, OTHER, ONCE, 1 dose, On Thu07/15/23 at 0900 Given by [facility] 07/15/2023 9:10 AM EDT 7.5 mg lidocaine (PF) 20 mg/mL (2 %) 200 mg injection (XYLOCAINE) 200 mg, OTHER, ONCE, 1 dose, On Thu07/15/23 at 0900 Given by [facility] 07/15/2023 9:10 AM EDT 200 mg methylPREDNISolone acetate 40 mg injection (DEPO-Medrol) 40 mg, OTHER, ONCE, 1 dose, On Thu07/15/23 at 0900 Given by [facility] 07/15/2023 9:10 AM EDT 40 mg INFORMATION SOURCE (unrecogn ized section and content) DATE CREATED AUTHOR 12/19/2023 [facility] DATE CREATED AUTHOR [facility] [employer] DATE CREATED AUTHOR AUTHOR'S ORGANIZ ATION 05/22/2024 [facility] DATE CREATED AUTHOR AUTHOR'S ORGANIZ ATION 11/05/2024 [facility] DATE CREATED AUTHOR AUTHOR'S ORGANIZ ATION 11/12/2024 [facility] FOR RECORDS PERTAINING TO PATIENTS WHO [...] BE BASED ON THE PRIMARY CLINICAL RECORDS. [employer] [facility]. provides no warranty or guarantee of the accuracy or completeness of information in this document.
[2024-11-14 10:58] LABS: Anion Gap 15 (5-15); BUN 82 mg/dL (4-19); BUN/Creat Ratio 24.0 RATIO (10-20); Calcium,Total 7.8 mg/dL (7.6-11.0); Carbon Dioxide 17.4 mmol/L (21.0-32.0); Chloride 109 mmol/L (98-108); Glucose 76 mg/dL (70-99); Potassium 4.7 mmol/L (3.3-5.1)
== END ==
LOC: OLS.ACH 04:00
PROVIDERS: PCP Family Medicine; Referring Provider Internal Medicine; Visit Provider Internal Medicine
DX: I50.32 Chronic diastolic (congestive) heart failure (principal)
CPT/HCPCS: 36415; 80048

== ENCOUNTER 2024-11-24 11:00 | Outpatient (RCR) | payer MEDICARE, OTHER, SELFPAY ==
[2024-11-14 08:38] VITALS: BP 115/76; PULSE 108; RESP 16; TEMP 36.1
--- NOTE | 2024-11-14 09:02 | PCM.WC.PN ---
History of Present Illness Date of Service: 11/14/24 History of Wound: 84-year-old female with past medical history of atrial fibrillation, DVT, lymphedema on Eliquis presents for evaluation of right lower extremity laceration. Patient states she was walking up her concrete steps into her house when she accidentally cut the medial portion of her right calf on the step on 26 October 2024. The patient has a new 7 x 1 cm wound on the right medial leg, which is relatively superficial and thin. The laceration was repaired in the ED on 26 October 2024 (date of the injury). No Xray was performed, but patient denies any deep bone pain. The patient has good peripheral pulses, with 2+ dorsalis pedis and posterior tibial pulses noted. Compression therapy is being considered, but further vascular studies are needed to ensure safety. A venous study was performed on October 11, which showed no thrombosis on the right side. ROS: - Integumentary: Reports healed skin graft on the right thigh. Reports wound on the right medial leg. - Cardiovascular: Denies thrombosis on the right. Attestation: Documentation on this patient encounter was supported using ambient scribe technology/ voice AI technology. The patient consented to recording for the purpose of documenting the encounter. Provider reviewed content of the generated note prior to signature. Objective Data Objective Data Vital Signs: Vital Signs Temp Pulse Resp BP 97.0 F L 108 H 16 115/76 11/14/24 08:38 11/14/24 08:38 11/14/24 08:38 11/14/24 08:38 Charges/Coding Procedures Integumentary [id number]: [id number] [place] subq tissue 20 sq cm/< Physical Exam Narrative Right lower extremity: Right thigh donor site with healing skin graft donor site (recently reepithelialized) Right anterior suresh skin graft site healed New right medial leg wound 1 x 7 cm superficial to the underlying subcutaneous tissues. Some necrotic fibrinous exudate and biofilm Cardiovascular: Peripheral pulses 2+ for dorsalis pedis and posterior tibial Debridement Note Debridement Note Wound debrided: Right lower extremity Laterality: Right Wound Grade/Stage: Stage III 1 x 7 cm Type of Debridement: Excisional debridement Anesthesia Used: 4% Lidocaine Solution Depth: Down to and including healthy tissue Percentage of wound debrided: 100 Instrument Used: 7mm curette Tissue Removed: Fibrinous exudate and biofilm from the fat layer Severity: Fat Layer Exposed Amount of bleeding with debridement: Mild Bleeding Controlled with: Compression and gauze Patient tolerated procedure: Patient tolerated procedure well Post-Debridement Measurements and Additional Note: Post-Debridement Measurements/Treatment - Nurse 1 - General Ulcer Assessment Start: 11/14/24 08:38 Freq: Status: Active Protocol: SMITH Activity Type Activity Date Activity User E-sign Co-sign Detail Recorded Client Recorded Date Recorded By Document 11/14/24 08:38 TERRANCE [id number] 11/14/24 08:41 TERRANCE 11/14/24 08:38 WC - Today's Visit Information Type of service Follow-up Visit (Physician/[employer] ) Arrival Mode Wheelchair Transfer Assistance Manual Patient Identification Verified (Name & Yes ) Patient Requires Transmission-Based No Precautions Vital Signs Temperature (97.8 F-99.1 F) 97.0 F L Temperature Source Temporal Pulse Rate (60-100) 108 H Pulse Location Monitor Respiratory Rate (12-18) 16 Respiratory rate source Monitor Blood Pressure (90/60-120/80) 115/76 Blood Pressure Mean (mm Hg) 89 Source Monitor Position Sitting Blood Pressure Location Right Forearm History Since Last Visit- (Skip if this is Patient's initial visit) Have you changed medications since your Yes last visit? Any new allergies or adverse reactions No Had a fall/change in ADL's that may No increase risk of falls Signs or symptoms of abuse and/or No neglect since last visit Have you been in the hospital since your No last visit? Has dressing in place as prescribed Yes Has compression in place as prescribed N/A Has offloadiing in place as prescribed N/A Experienced any changes in pain level or No management Left Footwear Regular Shoe Right Footwear Regular Shoe Pain Scale: 0-10 Numeric Is Patient Pain Free? Yes - Nurse 1 - General Ulcer Measurement Start: 11/14/24 08:38 Freq: Status: Active Protocol: Activity Type Activity Date Activity User E-sign Co-sign Detail Recorded Client Recorded Date Recorded By Document 11/14/24 08:38 TERRANCE [id number] 11/14/24 08:41 TERRANCE 11/14/24 08:38 Wound Center Nurse 1 2-right thigh donor site -Combined with other wound No -Current Size (cm) - Length 2.2 -Current Size (cm) - Width 0.5 -Current Size (cm) - Depth 0.1 -Total Square Cm 1.10 -Photo Taken Yes -Epithelialization Medium 34-66% -Tunneling No -Undermining/Tunneling No -Circular Undermining No -Exudate Amt Small -Exudate Type Serosanguineous -Wound Margin Flat & Intact -Granulation Amt Large (67-100%) -Granulation Quality Red -Slough/Fibrin No -Necrosis Amt None Present (0 %) -Structure Exposed N/A -Texture (Laura-wound Skin Appearance) Assessed -Moisture (Laura-wound Skin Appearance) No Abnormality, Dry/Scaly -Color (Laura-wound Skin Appearance) Assessed -Temperature (Laura-wound Skin No Abnormality Appearance) (Pt Warm) -Tenderness on Palpation (Laura-wound No Skin Appearance) -Ulcer Cleansing Soap and Water -Foul Odor after Cleansing No RLE medial -Combined with other wound No -Current Size (cm) - Length 1.4 -Current Size (cm) - Width 7.5 -Current Size (cm) - Depth 0.3 -Total Square Cm 10.50 -Photo Taken Yes -Epithelialization Small 1-33% -Tunneling No -Undermining/Tunneling No -Circular Undermining No -Exudate Amt Medium -Exudate Type Serosanguineous -Wound Margin Flat & Intact -Granulation Amt Medium (34-66%) -Granulation Quality Red -Slough/Fibrin Yes -Necrosis Amt Small (1-33%) -Necrotic Tissue Type Adherent Slough -Structure Exposed N/A -Texture (Laura-wound Skin Appearance) Assessed, Localized Edema -Moisture (Luara-wound Skin Appearance) No Abnormality, Dry/Scaly -Color (Laura-wound Skin Appearance) Assessed -Temperature (Laura-wound Skin No Abnormality Appearance) (Pt Warm) -Tenderness on Palpation (Laura-wound No Skin Appearance) -Ulcer Cleansing Soap and Water -Foul Odor after Cleansing No -Anesthetic Used 4% Lidocaine Solution Lower Limb Edema Present Yes Right Calf (cm) 49.3 Right Ankle (cm) 28.7 WC - Nurse 2 - General Ulcer CM Notes Start: 11/14/24 08:38 Freq: Status: Active Protocol: Activity Type Activity Date Activity User E-sign Co-sign Detail Recorded Client Recorded Date Recorded By Document 11/14/24 08:54 TERRANCE [id number] 11/14/24 08:57 JF 11/14/24 08:54 Wound Center Nurse 2 2-right thigh donor site -Correct Patient Yes -Correct Side, Site, Position No -Correct Procedure No -Procedure Performed No -Post Debridement (cm) - Length 0.1 -Post Debridement (cm) - Width 0.1 -Post Debridement (cm) - Depth 0.1 -Total Square (Post) (cm) 0.01 -Area of Debridement (cm) - Length 0.1 -Area of Debridement (cm) - Width 0.1 -Total Square (Area) (cm) 0.01 -Wound/Ulcer Outcome Not Healed RLE medial -Time 08:56 -Correct Patient Yes -Correct Side, Site, Position Yes -Correct Procedure Yes -Procedure Performed Yes -Type of Procedure Debridement -Clinical Debridement Subcutaneous -Tissue Removed Subcutaneous -Post Debridement (cm) - Length 7 -Post Debridement (cm) - Width 1 -Post Debridement (cm) - Depth 0.3 -Total Square (Post) (cm) 7 -Area of Debridement (cm) - Length 7 -Area of Debridement (cm) - Width 1 -Total Square (Area) (cm) 7 -Tunneling No -Undermining/Tunneling No -Circular Undermining No -Wound/Ulcer Outcome Not Healed -Ulcer Cleansing Rinsed/ Irrigated with Saline -Foul Odor after Cleansing No -Bioengineered Tissue No -Bleeding Controlled with Pressure -Treatment Response Procedure Tolerated Well -Offloading No -Debridement - Subq, 1st 20sq cm Yes Pain Scale: 0-10 Numeric Is Patient Pain Free? Yes Assessment/Plan Assessment/Plan (1) Open leg wound: CODE(S): S81.809A - Unspecified open wound, unspecified lower leg, initial encounter PLAN: Assessment and Plan 84-year-old female with a history of a healed skin graft on the right thigh presenting with a wound on the right medial leg. The wound is 7 x 1 cm, superficial, and thin, occurring spontaneously due to tight skin without trauma. Peripheral pulses are intact, and a venous study showed no thrombosis on the right. Further vascular studies are needed to determine the safety of compression therapy, which is being considered to aid healing. 1. Healed Skin Graft On The Right Thigh The healed skin graft on the right thigh requires no further intervention as it has healed well without complications. 2. Wound On The Right Medial Leg The wound on the right medial leg is 7 x 1 cm, superficial, and thin. It occurred spontaneously due to tight skin without trauma. Peripheral pulses are intact, and a venous study showed no thrombosis on the right. Further vascular studies are needed to determine the safety of compression therapy, which is being considered to aid healing. PLAN: Plan - Continue with current wound care regimen as instructed. - Schedule and complete further vascular studies as soon as possible. - Use compression therapy cautiously and only as advised by the healthcare provider (plan for only Gen wrap's at this time) - Follow up in two weeks for reassessment of the wound.
--- NOTE | 2024-11-15 09:16 | WC ---
PHOTO-RIGHT THIGH 11/14/24
--- NOTE | 2024-11-15 09:17 | WC ---
PHOTO-RIGHT MED LEG 11/14/24
--- NOTE | 2024-11-24 10:49 | ART_ITS ---
Reason For Study Reason For Study: Right leg ulcer Procedure A bilateral lower extremity continuous wave Doppler with analog waveform analysis,segmental pressures,and ankle brachial indexes without exercise. Left Segmental Pressures Left brachial= 116mmHg. Left posterior tibial artery = 135mmHg. Left dorsalis pedis artery = 139mmHg. Left digit = 106 mmHg. The left dorsalis pedis waveforms are triphasic. The left posterior tibial artery waveforms are triphasic. Right Segmental Pressures Right brachial= 118mmHg. Right posterior tibial artery = 139mmHg. Right dorsalis pedis artery = 147mmHg. Right digit = 100 mmHg. The right dorsalis pedis waveforms are triphasic. The right posterior tibial artery waveforms are triphasic. Indices The right ankle brachial index by the dorsalis pedis is 1.25. The right ankle brachial index by the posterior tibial artery is 1.18. The right digital-brachial index is 0.85. The left ankle brachial index by the dorsalis pedis is 1.18. The left ankle brachial index by the posterior tibial artery is 1.14. The left digital-brachial index is 0.90. VL/Lower Ext Art Exam w/o Exercis Interpretation Summary Triphasic Doppler waveforms are noted at ankle level bilaterally. Pulse-volume recordings appear satisfactory at all levels bilaterally. Resting ankle-brachial indices are normal bilaterally. Digi juliana-brachial indices are normal bilaterally. There is no evidence of significant arterial occlusive disease in the lower ext remities bilaterally. Ordering Physician: Aime Lomax Referring Physician: MD Estelita Marko Performed By: Charlette Shane RVT
== END 2024-12-04 23:59 | disposition home or self-care (01) ==
LOC: WC 11:00
PROVIDERS: PCP Family Medicine; Referring Provider Surgery Plastic and Reconstructive Surgery; Visit Provider Surgery Plastic and Reconstructive Surgery
DX: S81.811A Laceration without foreign body, right lower leg, initial encounter (principal); I48.91 Unspecified atrial fibrillation; W26.8XXA Contact with other sharp object(s), not elsewhere classified, initial encounter; I10 Essential (primary) hypertension; I89.0 Lymphedema, not elsewhere classified; Z79.01 Long term (current) use of anticoagulants; Z86.718 Personal history of other venous thrombosis and embolism
CPT/HCPCS: 11042; 93923

== ENCOUNTER 2024-11-29 13:51 | Inpatient (IN) | payer MEDICARE, OTHER, SELFPAY ==
[2024-11-29] VITALS (8 sets, daily range): BP systolic 94–124; BP diastolic 72–95; PULSE 102–120; RESP 18–29; TEMP 36.7–37.3; O2SAT 95–100; BMI 49.2; BMI 47.7
--- NOTE | 2024-11-29 15:00 | EKG12_ITS ---
Test Reason : SOB Blood Pressure : */* mmHG Vent. Rate : 109 BPM Atrial Rate : * BPM P-R Int : * ms QRS Dur : 160 ms QT Int : 332 ms P-R-T Axes : * 19 191 degrees QTcB Int : 447 ms Atrial fibrillation with rapid ventricular response Left bundle branch block Abnormal ECG Confirmed by SIMRAN MELENDEZ ([id number]), school photograph editor EMILY HUTSON ([id number]) on 11/30/2024 1:54:03 PM Referred By: DULCE/BENJAMÍN Confirmed By: SIMRAN MELENDEZ
[2024-11-29 15:20] LABS: Mucous, Urine 0 SEEN /hpf (<or=2+); Red Blood Cells-Urine 0 SEEN /hpf (0-5); Squamous Epithelial Cells - UA 0 SEEN /hpf (5-10)
[2024-11-29 15:21] LABS: Color, Urine Yellow (Yellow); Glucose, Dipstick Normal (Normal); Ketone-Dipstick Negative (Negative); Leukocyte Esterase-Dipstick 100 /ul (Negative); Nitrite-Dipstick Negative (Negative); Occult Blood-Urine Negative /ul (Negative); Protein-Dipstick 15 mg/dl (Negative); Specific Gravity, Urine 1.015 (1.002-1.030); Urine Bilirubin Dipstick Negative (Negative)
[2024-11-29 15:22] LABS: Hematocrit 34.6 % (37-47); Hemoglobin 10.6 g/dL (12.0-15.0); Immature Granulocytes Count 0.070 X10^3/uL (0.0-0.0); Mean Corp Hgb Conc 30.6 g/dL (32-36); Mean Corpuscular Volume 109.1 fL (81-99); Mean Platelet Vol. 14.0 fl (6.2-12.0); NRBC Flagged by Analyzer 0 % (0-5); POSITIVE MORPHOLOGY YES; Platelet Count 160 K/mm3 (150-450); RBC Distribution Width CV 16.4 % (11.6-14.6); RBC Distribution Width SD 66.9 fl (35.1-43.9); Red Blood Count 3.17 M/mm3 (4.2-5.4); White Blood Count 12.3 K/mm3 (4.4-11.0)
--- NOTE | 2024-11-29 15:22 | EX.ED.DYSGE1 ---
HPI History of Present Illness Chief Complaint: Shortness of Breath Narrative Narrative: Patient is 84-year-old female with a past medical history of COPD, hypothyroidism, VRE, paroxysmal atrial fibrillation, DVT on Eliquis, seizures, heart failure with preserved ejection fraction, hypertension, chronic kidney disease who presents to the emergency department with a chief complaint of generalized weakness shortness of breath. According to nursing the patient was recently in the hospital was at a halfway and just recently returned home. Patient has not been taking her diuretic since last week and she is not on a antibiotic. Patient states that she feels extremely weak and short of breath she states that she is not normally on oxygen. [facility] Medical History Osteoporosis Kidney disease Former smoker Congestive heart failure (CHF) Vaginal atrophy Nocturnal enuresis Mixed incontinence Overactive bladder Urge incontinence Thyroid disorder Incomplete bundle branch block Pulmonary embolism COPD (chronic obstructive pulmonary disease) VRE (vancomycin resistant enterococcus) culture positive Macrocytic anemia PAF (paroxysmal atrial fibrillation) Wears glasses Post-menopausal Open wound Arthritis Walker as ambulation aid Bladder disease History of renal disease Anemia DVT (deep venous thrombosis) Low iron High cholesterol Back pain Seizures Hoarseness Non-smoker CPAP (continuous positive airway pressure) dependence Leg cramps History of edema History of echocardiogram History of stress test Cardiology follow-up encounter Urinary incontinence Osteopenia Spinal osteophytosis Status epilepticus Complicated urinary tract infection Osteoporosis Osteoarthritis Venous insufficiency of both lower extremities Hypothyroidism Pulmonary hypertension Diastolic dysfunction Elevated parathyroid hormone Metabolic acidosis Lymphedema Preop cardiovascular exam H/O hemorrhoids (HFpEF) heart failure with preserved ejection fraction History of pulmonary embolus (PE) COVID-19 (01/19/21) MRSA (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 Abdominal pain DVT (deep venous thrombosis) GERD (gastroesophageal reflux disease) Insomnia Obstructive sleep apnea Essential (primary) hypertension Incomplete left bundle branch block Morbid obesity with BMI of 45.0-49.9, adult Home Medications ?Medication ?Instructions ?Recorded ?Last Taken ?Type levonorgestrel (Mirena) 1 mcg intrauterine ONCE . 07/25/21 Unknown History nitroglycerin 0.4 mg sublingual 0.4 mg sublingual Q5M PRN chest 06/27/22 Unknown Rx tablet pain #30 tabs levothyroxine 125 mcg tablet 125 mcg PO DAILY thyroid 05/18/24 10/04/24 History calcium acetate(phosphat bind) 667 667 mg PO TIDCM supplement #1 cap 06/09/24 10/04/24 Rx mg capsule sennosides 8.6 mg-docusate sodium 2 tab PO BID constipation #1 TAB 06/09/24 Unknown Rx 50 mg tablet (Stimulant Laxative Plus) carvedilol 6.25 mg tablet 6.25 mg PO BID Blood pressure 09/28/24 10/14/24 07:45 History multivitamin 1 tab PO DAILY Supplement 09/28/24 09/28/24 History Arthritis Pain Compound 3 click topical BID 30 days #60 GMS 10/17/24 Unknown Rx acetaminophen 500 mg tablet 1,000 mg (2 x 500 mg) PO TID #0 10/17/24 Unknown Rx tabs ferrous sulfate 325 mg (65 mg 325 mg PO DAILY@1200 30 days #30 10/17/24 Unknown Rx iron) tablet (FeroSul) tabs furosemide 40 mg tablet 40 mg PO DAILY #0 tabs 10/17/24 Unknown Rx lidocaine 5 % topical patch 1 patch topical DAILY 30 days #30 10/17/24 Unknown Rx ea mirtazapine 15 mg tablet 7.5 mg (1/2 x 15 mg) PO 2200 30 10/17/24 Unknown Rx days #15 tabs sodium bicarbonate 650 mg tablet 650 mg PO 4X/DAY 30 days #120 tabs 10/17/24 Unknown Rx cholecalciferol (vitamin D3) 25 50 mcg PO DAILY 10/26/24 Unknown History mcg (1,000 unit) tablet fluoride (sodium) 1.1 % dental 1 applic PO Q24H 10/26/24 Unknown History cream (Denta 5000 Plus) lacosamide 100 mg tablet 100 mg PO Q12H 10/26/24 Unknown History nystatin 100,000 unit/gram topical topical 10/26/24 Unknown History powder (Klayesta) vibegron 75 mg tablet (Gemtesa) 75 mg PO DAILY 10/26/24 Unknown History polyethylene glycol 3350 17 17 g PO DAILY 10/29/24 Unknown History gram/dose oral powder (Miralax) methenamine hippurate 1 gram tablet 1 g PO BID #180 tabs 11/11/24 Unknown Rx apixaban 2.5 mg tablet (Eliquis) 2.5 mg PO BID #180 tabs 11/18/24 Unknown Rx Allergy/AdvReac Type Severity Reaction Status Date / Time cefazolin (From Kefzol) Allergy Severe hives/difficulty Verified 11/29/24 13:52 swallowing ibuprofen Allergy Unknown Rash Verified 11/29/24 13:52 peanut Allergy Anaphylaxis Verified 11/29/24 13:52 Sulfa (Sulfonamide Allergy Unknown Verified 11/29/24 13:52 Antibiotics) sulfamethoxazole (From Allergy Other Verified 11/29/24 13:52 Bactrim) trimethoprim (From Bactrim) Allergy Other Verified 11/29/24 13:52 Family History Mother Cancer uterine Father No problems noted. Other Uterine cancer Surgical History History of cholecystectomy History of surgery on lower extremity History of esophagogastroduodenoscopy (EGD) Hx of colonoscopy Hx of left cataract extraction History of dental surgery History of open reduction and internal fixation (ORIF) procedure History of cardiac catheterization Hx laparoscopic cholecystectomy H/O shoulder replacement History of left heart catheterization (08/01/22) History of dilatation and curettage History of hysteroscopy History of bilateral knee replacement History of herniorrhaphy Status post debridement History of open reduction and internal fixation (ORIF) procedure H/O hemorrhoidectomy History of gastric bypass Social History household members: other details: She has a roomate housing: house number of children: 1 current occupational status: retired pets and animals: Yes pets and animals: dog(s) Smoking Status: Never smoker alcohol intake: never substance use type: does not use caffeine: Yes Type: coffee Number of servings: 3 ROS ROS ED ROS Narrative Constitutional: Denies any fevers, chills, headaches Eyes: Denies double vision Cardiovascular: Denies chest pain Respiratory: Complains of shortness of breath as noted above Abdomen: Denies abdominal pain nausea vomiting diarrhea : States that she was recently diagnosed with a urinary tract infection Neurological: Complains of generalized weakness denies any numbness,'s, tingling Musculoskeletal: Denies back pain Skin: Denies any rashes or lesions EXAM Physical Exam Narrative Exam Narrative: General: Patient is lying in bed rest comfortably did not appear to be acute distress Head: Atraumatic, normocephalic Eyes: PERRL bilateral, EOMI bilateral, no conjunctival injection noted Neck: Soft, supple, trachea midline Cardiovascular: Patient tachycardic with a irregular rhythm no murmurs gallops rubs noted Respiratory: Diminished breath sounds bilaterally Abdomen: No tenderness palpation Extremities: +4/5 strength noted in the bilateral lower extremities Neurological: Patient following commands knew that she was at [facility] year is 2024 Skin: Warm, dry, patient has a wound noted to the anterior suresh on the right lower extremity Const Vital Signs: 11/29/24 13:52 11/29/24 13:58 11/29/24 14:14 Temperature 99.2 F H Temperature Source Axillary Pulse Rate 120 H 117 H Respiratory Rate 22 H 29 H Respiratory Effort Short of Breath Labored Respiratory Pattern Tachypnea Tachypnea Blood Pressure 116/95 H Blood Pressure Mean 102 Pulse Ox 98 98 Oxygen Delivery Method Bi-pap Oxygen Flow Rate (L/min) Fraction of Inspired Oxygen (FIO2) 40 11/29/24 14:54 11/29/24 15:28 11/29/24 16:34 Temperature 99.2 F H 98.1 F Temperature Source Axillary Core Pulse Rate 119 H 118 H 115 H Respiratory Rate 24 H 18 18 Respiratory Effort Respiratory Pattern Blood Pressure 124/72 H 115/94 H 99/77 Blood Pressure Mean 89 101 84 Pulse Ox 98 98 100 Oxygen Delivery Method Nasal Cannula Nasal Cannula Nasal Cannula Oxygen Flow Rate (L/min) 2 2 2 Fraction of Inspired Oxygen (FIO2) 11/29/24 17:00 Temperature Temperature Source Pulse Rate 112 H Respiratory Rate Respiratory Effort Respiratory Pattern Blood Pressure 118/82 H Blood Pressure Mean 94 Pulse Ox 100 Oxygen Delivery Method Oxygen Flow Rate (L/min) Fraction of Inspired Oxygen (FIO2) MDM MDM MDM Narrative Medical decision making narrative: Patient is a 84-year-old female who presents to the emergency department the chief complaint of shortness of breath, generalized weakness and not feeling well. On the differential diagnosis includes but not limited to CHF exacerbation, pneumonia, pneumothorax, ACS, UTI, cellulitis. Patient will not be given a 30 cc/kg bolus of IV fluids as there is concern for CHF exacerbation and she will be given 1 L of IV fluids which was ordered at 1500. Patient CBC was reviewed showed a leukocytosis of 12,000, hemoglobin 10.6 which is stable, platelet count was 160. Patient's INR was 1.3, PT of 16.4. Patient sodium was 139, potassium was elevated 6.0 however this was hemolyzed therefore this was repeated with a BMP, creatinine was 3.97. Patient anion gap of 20. Patient's AST and ALT are 2929 respectively, troponin was 57, EKG was reviewed which showed atrial fibrillation with a rate of 109 bpm with a QTc of 447. There is evidence of left bundle branch block. This was compared to previous EKG from October 12, 2024 and is largely unchanged. Patient's proBNP elevated 9398 she was given milligram of Bumex . Patient urinalysis reviewed and showed no evidence of infection. Patient chest x-ray reviewed by myself by radiology which showed probable edema in the setting of cardiomegaly. Patient tib-fib x-ray reviewed by myself by radiology showed no acute osseous abnormality soft tissue swelling. At 4:56 PM there is no identifiable source infection therefore no antibiotics indicated. At 5:00 PM reperfusion assessment performed patient is not hypotensive therefore no vasopressors indicated. Will discuss case with hospitalist for admission for her acute hypoxic respiratory failure in the setting of CHF exacerbation. Hospitalist Dr. Becerril called down to the executive legal secretary and they notified me that since she has been very busy Dr. Todd was going to come down and evaluate the patient at bedside which she did and he will accept the patient to the hospital. Patient notified is agreeable to plan all question concerns answered. Lab Data Labs: Laboratory Results - last 24 hr 11/29/24 11/29/24 14:25 15:12 WBC 12.3 H RBC 3.17 L Hgb 10.6 L Hct 34.6 L MCV 109.1 H MCH 33.4 H MCHC 30.6 L RDW Std Deviation 66.9 H RDW Coeff of Parris 16.4 H Plt Count 160 MPV 14.0 H Immature Gran % (Auto) 0.600 Neut % (Auto) 79.4 H Lymph % (Auto) 11.3 L Nolan % (Auto) 6.1 Eos % (Auto) 2.1 Baso % (Auto) 0.5 Absolute Neuts (auto) 9.7 H Absolute Lymphs (auto) 1.39 Nucleated RBC % 0 Platelet Estimate ADEQUATE Polychromasia 1+ Anisocytosis 1+ Tear Drop Cells 1+ Ovalocytes 1+ PT 16.4 H INR 1.3 APTT 23.7 L Sodium 139 Potassium 6.0 H* Chloride 107 Carbon Dioxide 12.5 L Anion Gap 20 H BUN 86 H Creatinine 3.97 H Estim Creat Clear Calc 13.61 L Est GFR (MDRD) Non-Af 11 L BUN/Creatinine Ratio 21.7 H Glucose 83 Lactic Acid 1.1 Calcium 8.9 Total Bilirubin 0.38 AST 29 ALT 29 Alkaline Phosphatase 119 H Troponin T High Sens 57 H* D NT pro BNP II 9398 H Total Protein 6.9 Albumin 3.6 Globulin 3.2 Albumin/Globulin Ratio 1.1 Urine Color Yellow Urine Clarity Clear Urine pH 6.0 Ur Specific [place] 1.015 Urine Protein 15 H Urine Glucose (UA) Normal Urine Ketones Negative Urine Occult Blood Negative Urine Nitrite Negative Urine Bilirubin Negative Urine Urobilinogen Normal Ur Leukocyte Esterase 100 H Urine RBC 0 SEEN Urine WBC 5-10 SEEN Ur Squamous Epith Cells 0 SEEN Urine Bacteria 0 SEEN Urine Mucus 0 SEEN Radiography Diagnostic Testing: Clinical Impression(s) from Imaging Studies Chest X-Ray 11/29/24 15:37 IMPRESSION: Probable edema in the setting of cardiomegaly. Reading Location: [facility] Tibia/Fibula X-Ray 11/29/24 15:37 IMPRESSION: No acute osseous abnormality. Soft tissue swelling. Reading Location: [facility] Discharge Plan Triage Chief Complaint: Shortness of Breath ED Provider: Jhonatan Maxwell Dx/Rx/DC Orders Clinical Impression: CHF exacerbation, DVT (deep venous thrombosis), Obstructive sleep apnea, Coronary artery disease, Acute hypoxic respiratory failure Prescriptions: No Action Mirena 20 mcg/24 hours (7 yrs) 52 mg intrauterine device 1 mcg intrauterine ONCE nitroglycerin 0.4 mg tablet, sublingual 0.4 mg sublingual Q5M PRN (Reason: chest pain) Qty: 30 1RF Rx Instructions: do not exceed 3 doses per episode methenamine hippurate 1 gram tablet 1 g PO BID Qty: 180 3RF carvedilol 6.25 mg tablet 6.25 mg PO BID multivitamin Tablet 1 tab PO DAILY Arthritis Pain Compound 3 click topical BID 30 Days Qty: 60 0RF furosemide 40 mg Tablet 40 mg PO DAILY Qty: 0 0RF acetaminophen 500 mg Tablet 1,000 mg PO TID Qty: 0 0RF sodium bicarbonate 650 mg Tablet 650 mg PO 4X/DAY 30 Days Qty: 120 0RF ferrous sulfate [FeroSul] 325 mg (65 mg iron) Tablet 325 mg PO DAILY@1200 30 Days Qty: 30 0RF lidocaine 5 % Adhesive Patch,Medicated 1 patch topical DAILY 30 Days Qty: 30 0RF Protocol: *Topical Application Instructions APPLICATION INSTRUCTIONS: affected area mirtazapine 15 mg Tablet 7.5 mg PO 2200 30 Days Qty: 15 0RF nystatin [Klayesta] 100,000 unit/gram powder topical fluoride (sodium) [Denta 5000 Plus] 1.1 % cream 1 applic PO Q24H cholecalciferol (vitamin D3) 25 mcg (1,000 unit) tablet 50 mcg PO DAILY lacosamide 100 mg tablet 100 mg PO Q12H Gemtesa 75 mg tablet 75 mg PO DAILY polyethylene glycol 3350 [Miralax] 17 gram/dose powder 17 g PO DAILY levothyroxine 125 mcg tablet 125 mcg PO DAILY Patient Comments: TAKE 1 TABLET BY MOUTH ONCE DAILY. TAKE ON EMPTY STOMACH. FOR THYROID. calcium acetate(phosphat bind) 667 mg Capsule 667 mg PO TIDCM Qty: 1 0RF sennosides-docusate sodium [Stimulant Laxative Plus] 8.6-50 mg Tablet 2 tab PO BID Qty: 1 0RF Eliquis 2.5 mg tablet 2.5 mg PO BID Qty: 180 3RF Primary Care Provider: Marko Capone Referrals: Marko Capone MD [Primary Care Provider] - Print Language: Macedonian Disposition Disposition: Acute Care Hospital [facility]
[2024-11-29 15:23] LABS: Differential Indicated SCAN CRITERIA MET
[2024-11-29 15:24] LABS: Prothrombin Time (Protime)PT. 16.4 SECONDS (11.7-14.9)
[2024-11-29 15:25] LABS: Partial Thromboplast Time 23.7 Seconds (24.1-36.2)
[2024-11-29] MEDS: 0.9% Normal Saline (1000mL) 1,000 ML 999 ML IV (15:27)
--- NOTE | 2024-11-29 15:37 | RAD_ITS ---
CR,OT - TIBIA FIBULA 2 VIEWS 29-Nov-2024 3:34 PM CLINICAL HISTORY: wound anterior TECHNIQUE: AP and lateral views of the tibia/fibula. FINDINGS: BONES: No acute fracture or focal osseous lesion. The cortex appears distinct without evidence of osseous destruction or periosteal reaction. Generalized decrease in bone density. JOINTS: Prior total knee arthroplasty with partially imaged hardware. No evidence of hardware failure or loosening. No dislocation. The ankle mortise is preserved. SOFT TISSUES: The soft tissues appear diffusely edematous. Vascular calcifications noted. RAD/Tibia & Fibula 2 Views IMPRESSION: No acute osseous abnormality. Soft tissue swelling. Reading Location: [id number]
--- NOTE | 2024-11-29 15:37 | RAD_ITS ---
PROCEDURE: CHEST PA AND LATERAL 11/29/2024 REASON FOR EXAM: SOB TECHNIQUE: CHEST PA AND LATERAL COMPARISON: 10/29/2024. FINDINGS: The heart is enlarged. Vascular indistinctness suggestive of edema. Small bilateral pleural effusions. No acute osseous abnormalities. RAD/Chest PA and Lateral IMPRESSION: Probable edema in the setting of cardiomegaly. Reading Location: [id number]
[2024-11-29 15:45] LABS: AST(SGOT) 29 U/L (<=31); Alanine Aminotransfer ALT/SGPT 29 U/L (<=34); Albumin, Serum 3.6 g/dL (3.4-4.8); Alkaline Phosphatase 119 U/L (35-104); Anion Gap 20 (5-15); BUN 86 mg/dL (4-19); BUN/Creat Ratio 21.7 RATIO (10-20); Calcium,Total 8.9 mg/dL (7.6-11.0); Carbon Dioxide 12.5 mmol/L (21.0-32.0); Chloride 107 mmol/L (98-108); Estimated Creatinine Clearance 13.61 ml/min (50-250); Globulin 3.2 g/dL (2.2-4.2); Glucose 83 mg/dL (70-99); Potassium 6.0 mmol/L (3.3-5.1); Pro- Brain NATRIURETIC PEPTIDE 9398 pg/mL (<=1800); Troponin T High Sensitivity 57 ng/L (<=14)
[2024-11-29 16:04] LABS: Anisocytosis 1+; Polychromasia 1+; Tear Drop Cell 1+
--- NOTE | 2024-11-29 17:37 | PCM.HP.STD ---
[facility] - General General Date of Service: 11/29/24 Chief Complaint: Shortness of breath [facility] Narrative MARI LOPEZ, is a 84 F who presents with shortness of breath. This is a patient with a history of heart failure and CKD presents with increasing shortness of breath over the past few days. Patient was discharged here on November 01 with heart failure and debility. Patient was discharged with furosemide 40 mg daily. Patient states that at home her dose has been decreased to 20. She does have lower extremity edema but states that overall it is a bit improved. Is coughing up greenish phlegm denies any fever or chills. Presented to the emergency room with shortness of breath. Chest x-ray showing signs of pulmonary vascular congestion. BNP was elevated at 9398, troponin was 57. Her creatinine was up to 3.97 up from 3.4 back on November 14. Patient's potassium was 6 however that was hemolyzed. [facility] Medical History Osteoporosis Kidney disease Former smoker Congestive heart failure (CHF) Vaginal atrophy Nocturnal enuresis Mixed incontinence Overactive bladder Urge incontinence Thyroid disorder Incomplete bundle branch block Pulmonary embolism COPD (chronic obstructive pulmonary disease) VRE (vancomycin resistant enterococcus) culture positive Macrocytic anemia PAF (paroxysmal atrial fibrillation) Wears glasses Post-menopausal Open wound Arthritis Walker as ambulation aid Bladder disease History of renal disease Anemia DVT (deep venous thrombosis) Low iron High cholesterol Back pain Seizures Hoarseness Non-smoker CPAP (continuous positive airway pressure) dependence Leg cramps History of edema History of echocardiogram History of stress test Cardiology follow-up encounter Urinary incontinence Osteopenia Spinal osteophytosis Status epilepticus Complicated urinary tract infection Osteoporosis Osteoarthritis Venous insufficiency of both lower extremities Hypothyroidism Pulmonary hypertension Diastolic dysfunction Elevated parathyroid hormone Metabolic acidosis Lymphedema Preop cardiovascular exam H/O hemorrhoids (HFpEF) heart failure with preserved ejection fraction History of pulmonary embolus (PE) COVID-19 (01/19/21) MRSA (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 Abdominal pain DVT (deep venous thrombosis) GERD (gastroesophageal reflux disease) Insomnia Obstructive sleep apnea Essential (primary) hypertension Incomplete left bundle branch block Morbid obesity with BMI of 45.0-49.9, adult Home Medications ?Medication ?Instructions ?Recorded ?Last Taken ?Type levonorgestrel (Mirena) 1 mcg intrauterine ONCE . 07/25/21 Unknown History nitroglycerin 0.4 mg sublingual 0.4 mg sublingual Q5M PRN chest 06/27/22 Unknown Rx tablet pain #30 tabs levothyroxine 125 mcg tablet 125 mcg PO DAILY thyroid 05/18/24 10/04/24 History calcium acetate(phosphat bind) 667 667 mg PO TIDCM supplement #1 cap 06/09/24 10/04/24 Rx mg capsule sennosides 8.6 mg-docusate sodium 2 tab PO BID constipation #1 TAB 06/09/24 Unknown Rx 50 mg tablet (Stimulant Laxative Plus) carvedilol 6.25 mg tablet 6.25 mg PO BID Blood pressure 09/28/24 10/14/24 07:45 History multivitamin 1 tab PO DAILY Supplement 09/28/24 09/28/24 History Arthritis Pain Compound 3 click topical BID 30 days #60 GMS 10/17/24 Unknown Rx acetaminophen 500 mg tablet 1,000 mg (2 x 500 mg) PO TID #0 10/17/24 Unknown Rx tabs ferrous sulfate 325 mg (65 mg 325 mg PO DAILY@1200 30 days #30 10/17/24 Unknown Rx iron) tablet (FeroSul) tabs furosemide 40 mg tablet 40 mg PO DAILY #0 tabs 10/17/24 Unknown Rx lidocaine 5 % topical patch 1 patch topical DAILY 30 days #30 10/17/24 Unknown Rx ea mirtazapine 15 mg tablet 7.5 mg (1/2 x 15 mg) PO 2200 30 10/17/24 Unknown Rx days #15 tabs sodium bicarbonate 650 mg tablet 650 mg PO 4X/DAY 30 days #120 tabs 10/17/24 Unknown Rx cholecalciferol (vitamin D3) 25 50 mcg PO DAILY 10/26/24 Unknown History mcg (1,000 unit) tablet fluoride (sodium) 1.1 % dental 1 applic PO Q24H 10/26/24 Unknown History cream (Denta 5000 Plus) lacosamide 100 mg tablet 100 mg PO Q12H 10/26/24 Unknown History nystatin 100,000 unit/gram topical topical 10/26/24 Unknown History powder (Klayesta) vibegron 75 mg tablet (Gemtesa) 75 mg PO DAILY 10/26/24 Unknown History polyethylene glycol 3350 17 17 g PO DAILY 10/29/24 Unknown History gram/dose oral powder (Miralax) methenamine hippurate 1 gram tablet 1 g PO BID #180 tabs 11/11/24 Unknown Rx apixaban 2.5 mg tablet (Eliquis) 2.5 mg PO BID #180 tabs 11/18/24 Unknown Rx Allergy/AdvReac Type Severity Reaction Status Date / Time cefazolin (From Kefzol) Allergy Severe hives/difficulty Verified 11/29/24 13:52 swallowing ibuprofen Allergy Unknown Rash Verified 11/29/24 13:52 peanut Allergy Anaphylaxis Verified 11/29/24 13:52 Sulfa (Sulfonamide Allergy Unknown Verified 11/29/24 13:52 Antibiotics) sulfamethoxazole (From Allergy Other Verified 11/29/24 13:52 Bactrim) trimethoprim (From Bactrim) Allergy Other Verified 11/29/24 13:52 Family History Mother Cancer uterine Father No problems noted. Other Uterine cancer Surgical History History of cholecystectomy History of surgery on lower extremity History of esophagogastroduodenoscopy (EGD) Hx of colonoscopy Hx of left cataract extraction History of dental surgery History of open reduction and internal fixation (ORIF) procedure History of cardiac catheterization Hx laparoscopic cholecystectomy H/O shoulder replacement History of left heart catheterization (08/01/22) History of dilatation and curettage History of hysteroscopy History of bilateral knee replacement History of herniorrhaphy Status post debridement History of open reduction and internal fixation (ORIF) procedure H/O hemorrhoidectomy History of gastric bypass Social History household members: other details: She has a roomate housing: house number of children: 1 current occupational status: retired pets and animals: Yes pets and animals: dog(s) Smoking Status: Never smoker alcohol intake: never substance use type: does not use caffeine: Yes Type: coffee Number of servings: 3 Homelessness:: Sheltered ROS ROS Narrative Displayed tremulousness in upper extremities. All review of systems were negative except as mentioned above in the history of present illness and the other review of systems. Vital Signs Vital Signs Vital Signs: 11/29/24 13:52 11/29/24 13:58 11/29/24 14:14 Temperature 37.3 C H Temperature Source Axillary Pulse Rate 120 H 117 H Respiratory Rate 22 H 29 H Respiratory Effort Short of Breath Labored Respiratory Pattern Tachypnea Tachypnea Blood Pressure 116/95 H Blood Pressure Mean 102 Pulse Ox 98 98 Oxygen Delivery Method Bi-pap Oxygen Flow Rate (L/min) Fraction of Inspired Oxygen (FIO2) 40 11/29/24 14:54 11/29/24 15:28 11/29/24 16:34 Temperature 37.3 C H 36.7 C Temperature Source Axillary Core Pulse Rate 119 H 118 H 115 H Respiratory Rate 24 H 18 18 Respiratory Effort Respiratory Pattern Blood Pressure 124/72 H 115/94 H 99/77 Blood Pressure Mean 89 101 84 Pulse Ox 98 98 100 Oxygen Delivery Method Nasal Cannula Nasal Cannula Nasal Cannula Oxygen Flow Rate (L/min) 2 2 2 Fraction of Inspired Oxygen (FIO2) Weight Weight: 122.1 kg Body Mass Index (BMI) 49.2 Physical Exam Const Constitutional Narrative: Patient is awake. Nontoxic. Afebrile. Appears listless. HEENT normocephalic and head/scalp atraumatic Neck Neck Narrative: No lymphadenopathy Resp Resp Narrative: Coarse breath sounds bilaterally Cardio regular rate, regular rhythm, S1 normal heart sound and S2 normal heart sound GI normal to inspection, nondistended, normoactive bowel sounds, soft to palpation, non-tender and non-distended GI Narrative: Obese. Soft. Extremity Extremity Narrative: Bilateral lower extremity edema pitting. Not tight. Skin Skin Narrative: Superficial abrasion on right anterior suresh. Neuro Neuro Narrative: Moves all extremities spontaneously. Sensorium / Orientation: awake and alert Results Lab / Micro Data Attestation: I reviewed the patient's lab results. 11/29/24 14:25 11/29/24 14:25 Labs: Laboratory Results - last 24 hr 11/29/24 14:25: WBC 12.3 H, RBC 3.17 L, Hgb 10.6 L, Hct 34.6 L, MCV 109.1 H, MCH 33.4 H, MCHC 30.6 L, RDW Std Deviation 66.9 H, RDW Coeff of Parris 16.4 H, Plt Count 160, MPV 14.0 H, Immature Gran % (Auto) 0.600, Neut % (Auto) 79.4 H, Lymph % (Auto) 11.3 L, [place] % (Auto) 6.1, Eos % (Auto) 2.1, Baso % (Auto) 0.5, Absolute Neuts (auto) 9.7 H, Absolute Lymphs (auto) 1.39, Nucleated RBC % 0, Platelet Estimate ADEQUATE, Polychromasia 1+, Anisocytosis 1+, Tear Drop Cells 1+, Ovalocytes 1+, PT 16.4 H, INR 1.3, APTT 23.7 L, Sodium 139, Potassium 6.0 H*, Chloride 107, Carbon Dioxide 12.5 L, Anion Gap 20 H, BUN 86 H, Creatinine 3.97 H, Estim Creat Clear Calc 13.61 L, Est GFR (MDRD) Non-Af 11 L, BUN/Creatinine Ratio 21.7 H, Glucose 83, Lactic Acid 1.1, Calcium 8.9, Total Bilirubin 0.38, AST 29, ALT 29, Alkaline Phosphatase 119 H, Troponin T High Sens 57 H* D, NT pro BNP II 9398 H, Total Protein 6.9, Albumin 3.6, Globulin 3.2, Albumin/Globulin Ratio 1.1 11/29/24 15:12: Urine Color Yellow, Urine Clarity Clear, Urine pH 6.0, Ur Specific [place] 1.015, Urine Protein 15 H, Urine Glucose (UA) Normal, Urine Ketones Negative, Urine Occult Blood Negative, Urine Nitrite Negative, Urine Bilirubin Negative, Urine Urobilinogen Normal, Ur Leukocyte Esterase 100 H, Urine RBC 0 SEEN, Urine WBC 5-10 SEEN, Ur Squamous Epith Cells 0 SEEN, Urine Bacteria 0 SEEN, Urine Mucus 0 SEEN Micro: Microbiology 11/29/24 15:12 Mucosa - Nose SARS-CoV-2, Influenza & RSV (PCR) - Final Imaging Radiology Impression Chest X-Ray 11/29/24 15:37 IMPRESSION: Probable edema in the setting of cardiomegaly. Reading Location: [facility] Tibia/Fibula X-Ray 11/29/24 15:37 IMPRESSION: No acute osseous abnormality. Soft tissue swelling. Reading Location: [id number] Assessment & Plan Assessment/Plan (1) (HFpEF) heart failure with preserved ejection fraction: PLAN: EF 55% from earlier this year. Will repeat echocardiogram to see was been any changes. Patient received amantadine in the emergency room. Will continue with the 20 mg IV 3 times daily of furosemide. Fluid restrict. Daily weights. Patient's weight overall has increased roughly 5 kg since earlier this month. Complicated by worsening kidney disease. Symptoms seem more consistent with CHF particular given her history. I do not suspect pneumonia at this time but will monitor clinically with expectant management if things were to develop while she is here that may warrant treatment for pneumonia. (2) Acute renal failure superimposed on stage 3b chronic kidney disease: QUALIFIERS: Acute renal failure type: unspecified Qualified Code(s): N17.9 - Acute kidney failure, unspecified; N18.32 - Chronic kidney disease, stage 3b PLAN: Creatinine up to 3.97. Monitor closely while on IV furosemide. Discussed with the patient that if her kidney function would have worsened to see if she would want to have dialysis. She declines dialysis so we will hold off on nephrology consultation unless she were to decide on proceeding with hemodialysis. Concerned the patient may have cardiorenal syndrome. Patient did have an ultrasound of her kidneys on September 28 this year. No indication to recheck that at this time. (3) Elevated troponin I level: PLAN: Likely type II event but likely also skewed given her CKD. PLAN: Plan Open leg wound: This overall is improving. Will consult wound care Debility: PT OT evaluate and treat. Case management to assist in disposition. Tremulousness: Patient complains of that but patient previously been on gabapentin but not seeing that on her MAR at this time. Expectant management at this time. Chronic medical conditions Obesity class III: Complicates care and recovery Paroxysmal atrial fibrillation: Continue carvedilol and apixaban Hypothyroidism: Continue levothyroxine. TSH 4.31. Check free T4. VTE prophylaxis: Not indicated as patient is already anticoagulated CODE STATUS: Addressed with the patient. Patient wishes to be DNR Comfort Care arrest no intubation. Patient states that she was post to follow-up with palliative care this week. Will consult inpatient palliative care to assist with goals of care. Patient did mention to me that she is very exhausted for with all her medical issues so if her condition continues to deteriorate despite medical therapy may need to consider hospice evaluation. Charges/Coding Visit Charges Inpatient E&M: 51937 Init Hosp L3
[2024-11-29 18:06] LABS: Troponin T High Sens 2 HR 47 ng/L (<=14)
[2024-11-29 18:39] LABS: Anion Gap 19 (5-15); BUN 78 mg/dL (4-19); BUN/Creat Ratio 22.7 RATIO (10-20); Calcium,Total 7.6 mg/dL (7.6-11.0); Carbon Dioxide 9.0 mmol/L (21.0-32.0); Chloride 112 mmol/L (98-108); Estimated Creatinine Clearance 15.53 ml/min (50-250); Glucose 77 mg/dL (70-99); Potassium 5.1 mmol/L (3.3-5.1)
[2024-11-29] MEDS: Furosemide 20 MG/2 ML VIAL IV (21:48)
[2024-11-29] MEDS: levETIRAcetam IV 1,000 MG/100 ML BAG 400 MG IV (23:17)
--- NOTE | 2024-11-29 23:59 | RAD_ITS ---
PROCEDURE: CHEST 1 VIEW (PORTABLE) 11/30/2024 REASON FOR EXAM: COUGHING WITH SWALLOW FLUIDS/LIQUIDS TECHNIQUE: Frontal view of the chest. COMPARISON: 11/29/2024. FINDINGS: Unremarkable metallic prosthesis of the left shoulder. Unchanged cardiomegaly. Unchanged mild left pleural effusion. Mildly improved passive atelectatic airspace disease of the left lower lobe. Unchanged minimal right pleural effusion. Enlarged cardiac silhouette. Unchanged mild central pulmonary venous congestion. Normal mediastinum and nataliya. Normal visualized pulmonary arteries. Atheromatous plaques of the visualized aortic arch and descending thoracic aorta. Diffuse spondylosis of the visualized thoracic spine. Normal visualized ribs, clavicles. Degenerative joint disease. There is no demonstrated abnormality of the visualized soft tissue structures of the upper abdomen. RAD/Chest 1 View (Portable) IMPRESSION: Unremarkable metallic prosthesis of the left shoulder. Unchanged cardiomegaly. Unchanged mild left pleural effusion. Mildly improved passive atelectatic airspace disease of the left lower lobe. Unchanged minimal right pleural effusion. Enlarged cardiac silhouette. Unchanged mild central pulmonary venous congestion. [facility]
[2024-11-30 01:00] LABS: Pro- Brain NATRIURETIC PEPTIDE 11081 pg/mL (<=1800)
[2024-11-30] MEDS: NYSTATIN 500,000 UNIT/5 ML UDC 500000 UNIT PO ×3 (01:02→15:38)
[2024-11-30 03:16] VITALS: BP 95/60; PULSE 108; RESP 20; TEMP 36.1; O2SAT 94
[2024-11-30 04:57] VITALS: BMI 48.8
[2024-11-30 06:13] VITALS: BP 109/76
[2024-11-30] MEDS: Furosemide 20 MG/2 ML VIAL IV (06:14)
[2024-11-30 06:59] LABS: Hematocrit 32.4 % (37-47); Hemoglobin 9.8 g/dL (12.0-15.0); Immature Granulocytes Count 0.070 X10^3/uL (0.0-0.0); Mean Corp Hgb Conc 30.2 g/dL (32-36); Mean Corpuscular Volume 110.2 fL (81-99); Mean Platelet Vol. 13.4 fl (6.2-12.0); NRBC Flagged by Analyzer 0 % (0-5); POSITIVE MORPHOLOGY YES; Platelet Count 170 K/mm3 (150-450); RBC Distribution Width CV 16.3 % (11.6-14.6); RBC Distribution Width SD 67.0 fl (35.1-43.9); Red Blood Count 2.94 M/mm3 (4.2-5.4); White Blood Count 12.4 K/mm3 (4.4-11.0)
[2024-11-30 07:46] LABS: Differential Indicated SCAN CRITERIA MET
[2024-11-30 07:52] LABS: AST(SGOT) 20 U/L (<=31); Alanine Aminotransfer ALT/SGPT 25 U/L (<=34); Albumin, Serum 3.6 g/dL (3.4-4.8); Alkaline Phosphatase 123 U/L (35-104); Anion Gap 17 (5-15); BUN 87 mg/dL (4-19); BUN/Creat Ratio 21.3 RATIO (10-20); Calcium,Total 8.7 mg/dL (7.6-11.0); Carbon Dioxide 14.0 mmol/L (21.0-32.0); Chloride 111 mmol/L (98-108); Estimated Creatinine Clearance 13.08 ml/min (50-250); Globulin 2.9 g/dL (2.2-4.2); Glucose 73 mg/dL (70-99); Potassium 5.0 mmol/L (3.3-5.1)
--- NOTE | 2024-11-30 08:31 | PCM.PN.HOSP ---
Reason for Visit Chief Complaint: Shortness of breath Subjective Subjective More somnolent. Objective Data Objective Data Vital Signs: Vital Signs Temp Pulse Resp BP Pulse Ox O2 Del Method O2 Flow Rate 36.1 C L 108 H 20 H 109/76 94 Nasal Cannula 2.5 11/30/24 03:16 11/30/24 03:16 11/30/24 03:16 11/30/24 06:13 11/30/24 03:16 11/30/24 08:09 11/30/24 08:09 FiO2 40 11/29/24 14:14 Oxygen Flow Rate (L/min) 2.5 Oxygen Delivery Method Nasal Cannula Weight: 121.1 kg Body Mass Index (BMI) 48.8 Intake & Output: Intake and Output for Last 24 Hours 11/28/24 11/29/24 11/30/24 23:59 23:59 23:59 Intake Total 1100 / 1100 Output Total 1150 / 1150 300 / 300 Balance -50 / -50 -300 / -300 Lab / Micro Data 11/30/24 06:27 11/30/24 06:27 Labs: Laboratory Results - last 24 hr 11/29/24 14:25: WBC 12.3 H, RBC 3.17 L, Hgb 10.6 L, Hct 34.6 L, MCV 109.1 H, MCH 33.4 H, MCHC 30.6 L, RDW Std Deviation 66.9 H, RDW Coeff of Parris 16.4 H, Plt Count 160, MPV 14.0 H, Immature Gran % (Auto) 0.600, Neut % (Auto) 79.4 H, Lymph % (Auto) 11.3 L, [place] % (Auto) 6.1, Eos % (Auto) 2.1, Baso % (Auto) 0.5, Absolute Neuts (auto) 9.7 H, Absolute Lymphs (auto) 1.39, Nucleated RBC % 0, Platelet Estimate ADEQUATE, Polychromasia 1+, Anisocytosis 1+, Tear Drop Cells 1+, Ovalocytes 1+, PT 16.4 H, INR 1.3, APTT 23.7 L, Sodium 139, Potassium 6.0 H*, Chloride 107, Carbon Dioxide 12.5 L, Anion Gap 20 H, BUN 86 H, Creatinine 3.97 H, Estim Creat Clear Calc 13.61 L, Est GFR (MDRD) Non-Af 11 L, BUN/Creatinine Ratio 21.7 H, Glucose 83, Lactic Acid 1.1, Calcium 8.9, Total Bilirubin 0.38, AST 29, ALT 29, Alkaline Phosphatase 119 H, Troponin T High Sens 57 H* D, NT pro BNP II 9398 H, Total Protein 6.9, Albumin 3.6, Globulin 3.2, Albumin/Globulin Ratio 1.1 11/29/24 15:12: Urine Color Yellow, Urine Clarity Clear, Urine pH 6.0, Ur Specific [place] 1.015, Urine Protein 15 H, Urine Glucose (UA) Normal, Urine Ketones Negative, Urine Occult Blood Negative, Urine Nitrite Negative, Urine Bilirubin Negative, Urine Urobilinogen Normal, Ur Leukocyte Esterase 100 H, Urine RBC 0 SEEN, Urine WBC 5-10 SEEN, Ur Squamous Epith Cells 0 SEEN, Urine Bacteria 0 SEEN, Urine Mucus 0 SEEN 11/29/24 17:03: Sodium 141 11/29/24 17:03: Sodium Cancelled, Potassium 5.1 11/29/24 17:03: Potassium Cancelled, Chloride 112 H 11/29/24 17:03: Chloride Cancelled, Carbon Dioxide 9.0 L* 11/29/24 17:03: Carbon Dioxide Cancelled, Anion Gap 19 H 11/29/24 17:03: Anion Gap Cancelled, BUN 78 H 11/29/24 17:03: BUN Cancelled, Creatinine 3.41 H 11/29/24 17:03: Creatinine Cancelled, Estim Creat Clear Calc 15.53 L 11/29/24 17:03: Estim Creat Clear Calc Cancelled, Est GFR (MDRD) Non-Af 13 L 11/29/24 17:03: Est GFR (MDRD) Non-Af Cancelled, BUN/Creatinine Ratio 22.7 H 11/29/24 17:03: BUN/Creatinine Ratio Cancelled, Glucose 77 11/29/24 17:03: Glucose Cancelled, Calcium 7.6 11/29/24 17:03: Calcium Cancelled, Troponin T Hi Sens 2 Hr 47 H 11/30/24 00:32: [place] [address] H 11/30/24 06:27: WBC 12.4 H, RBC 2.94 L, Hgb 9.8 L, Hct 32.4 L, MCV 110.2 H, MCH 33.3 H, MCHC 30.2 L, RDW Std Deviation 67.0 H, RDW Coeff of Parris 16.3 H, Plt Count 170, MPV 13.4 H, Immature Gran % (Auto) 0.600, Neut % (Auto) 76.8 H, Lymph % (Auto) 12.1 L, [place] % (Auto) 8.3, Eos % (Auto) 1.7, Baso % (Auto) 0.5, Absolute Neuts (auto) 9.6 H, Absolute Lymphs (auto) 1.50, Nucleated RBC % 0, Sodium 141, Potassium 5.0, Chloride 111 H, Carbon Dioxide 14.0 L, Anion Gap 17 H, BUN 87 H, Creatinine 4.11 H, Estim Creat Clear Calc 13.08 L, Est GFR (MDRD) Non-Af 10 L, BUN/Creatinine Ratio 21.3 H, Glucose 73, Calcium 8.7, Total Bilirubin 0.38, AST 20, ALT 25, Alkaline Phosphatase 123 H, Total Protein 6.5, Albumin 3.6, Globulin 2.9, Albumin/Globulin Ratio 1.2 Micro: Microbiology 11/29/24 15:12 Mucosa - Nose SARS-CoV-2, Influenza & RSV (PCR) - Final Radiography Diagnostic Testing: Radiology Impression Chest X-Ray 11/29/24 15:37 IMPRESSION: Probable edema in the setting of cardiomegaly. Reading Location: [facility] Tibia/Fibula X-Ray 11/29/24 15:37 IMPRESSION: No acute osseous abnormality. Soft tissue swelling. Reading Location: [facility] Chest X-Ray 11/29/24 23:59 IMPRESSION: Unremarkable metallic prosthesis of the left shoulder. Unchanged cardiomegaly. Unchanged mild left pleural effusion. Mildly improved passive atelectatic airspace disease of the left lower lobe. Unchanged minimal right pleural effusion. Enlarged cardiac silhouette. Unchanged mild central pulmonary venous congestion. Reading Location: [place] [id number] Social Homelessness:: Sheltered Physical Exam Const Constitutional Narrative: Up in bed. Somnolent. Wakes briefly to voice and dozes off. Does not follow any commands. Resp normal respiratory effort, no retractions, no use of accessory muscles and clear to auscultation bilaterally Cardio regular rate, regular rhythm, S1 normal heart sound and S2 normal heart sound GI normal to inspection, nondistended, normoactive bowel sounds, soft to palpation, non-tender and non-distended Neuro Sensorium / Orientation: awake and alert Assessment & Plan Assessment/Plan (1) (HFpEF) heart failure with preserved ejection fraction: PLAN: EF 55% from earlier this year. Will repeat echocardiogram to see was been any changes. Patient received amantadine in the emergency room. DC furosemide given worsening kidney function. Fluid restrict. Daily weights. Patient's weight overall has increased roughly 5 kg since earlier this month. Complicated by worsening kidney disease. Symptoms seem more consistent with CHF particular given her history. I do not suspect pneumonia at this time but will monitor clinically with expectant management if things were to develop while she is here that may warrant treatment for pneumonia. (2) Acute renal failure superimposed on stage 3b chronic kidney disease: QUALIFIERS: Acute renal failure type: unspecified Qualified Code(s): N17.9 - Acute kidney failure, unspecified; N18.32 - Chronic kidney disease, stage 3b PLAN: Creatinine up to 3.97. Monitor closely while on IV furosemide. Discussed with the patient that if her kidney function would have worsened to see if she would want to have dialysis. She declines dialysis so we will hold off on nephrology consultation unless she were to decide on proceeding with hemodialysis. Concerned the patient may have cardiorenal syndrome. Patient did have an ultrasound of her kidneys on September 28 this year. No indication to recheck that at this time. (3) Elevated troponin I level: PLAN: Likely type II event but likely also skewed given her CKD. PLAN: Plan Open leg wound: This overall is improving. Will consult wound care Debility: PT OT evaluate and treat. Case management to assist in disposition. Tremulousness: Patient complains of that but patient previously been on gabapentin but not seeing that on her MAR at this time. Expectant management at this time. Chronic medical conditions Obesity class III: Complicates care and recovery Paroxysmal atrial fibrillation: Continue carvedilol and apixaban Hypothyroidism: Continue levothyroxine. TSH 4.31. Check free T4. VTE prophylaxis: Not indicated as patient is already anticoagulated Given the worsening kidney function and top of heart failure and overall poor performance status at this time, palliative care was consulted and they will patient to be evaluated by hospice this afternoon. Charges/Coding Visit Charges Inpatient E&M: 16285 Subs Hosp L2
[2024-11-30 08:37] LABS: Anisocytosis 1+
[2024-11-30 09:00] VITALS: BP 114/43; PULSE 103; RESP 20; TEMP 37.2; O2SAT 98
--- NOTE | 2024-11-30 09:59 | PCM.CONS.P ---
[facility] Medical History Osteoporosis Kidney disease Former smoker Congestive heart failure (CHF) Vaginal atrophy Nocturnal enuresis Mixed incontinence Overactive bladder Urge incontinence Thyroid disorder Incomplete bundle branch block Pulmonary embolism COPD (chronic obstructive pulmonary disease) VRE (vancomycin resistant enterococcus) culture positive Macrocytic anemia PAF (paroxysmal atrial fibrillation) Wears glasses Post-menopausal Open wound Arthritis Walker as ambulation aid Bladder disease History of renal disease Anemia DVT (deep venous thrombosis) Low iron High cholesterol Back pain Seizures Hoarseness Non-smoker CPAP (continuous positive airway pressure) dependence Leg cramps History of edema History of echocardiogram History of stress test Cardiology follow-up encounter Urinary incontinence Osteopenia Spinal osteophytosis Status epilepticus Complicated urinary tract infection Osteoporosis Osteoarthritis Venous insufficiency of both lower extremities Hypothyroidism Pulmonary hypertension Diastolic dysfunction Elevated parathyroid hormone Metabolic acidosis Lymphedema Preop cardiovascular exam H/O hemorrhoids (HFpEF) heart failure with preserved ejection fraction History of pulmonary embolus (PE) COVID-19 (01/19/21) MRSA (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 Abdominal pain DVT (deep venous thrombosis) GERD (gastroesophageal reflux disease) Insomnia Obstructive sleep apnea Essential (primary) hypertension Incomplete left bundle branch block Morbid obesity with BMI of 45.0-49.9, adult Home Medications ?Medication ?Instructions ?Recorded ?Last Taken ?Type levonorgestrel (Mirena) 1 mcg intrauterine ONCE . 07/25/21 Unknown History nitroglycerin 0.4 mg sublingual 0.4 mg sublingual Q5M PRN chest 06/27/22 Unknown Rx tablet pain #30 tabs levothyroxine 125 mcg tablet 125 mcg PO DAILY thyroid 05/18/24 10/04/24 History calcium acetate(phosphat bind) 667 667 mg PO TIDCM supplement #1 cap 06/09/24 10/04/24 Rx mg capsule sennosides 8.6 mg-docusate sodium 2 tab PO BID constipation #1 TAB 06/09/24 Unknown Rx 50 mg tablet (Stimulant Laxative Plus) carvedilol 6.25 mg tablet 6.25 mg PO BID Blood pressure 09/28/24 10/14/24 07:45 History multivitamin 1 tab PO DAILY Supplement 09/28/24 09/28/24 History Arthritis Pain Compound 3 click topical BID 30 days #60 GMS 07/14/25 Unknown Rx acetaminophen 500 mg tablet 1,000 mg (2 x 500 mg) PO TID #0 10/17/24 Unknown Rx tabs ferrous sulfate 325 mg (65 mg 325 mg PO DAILY@1200 30 days #30 10/17/24 Unknown Rx iron) tablet (FeroSul) tabs furosemide 40 mg tablet 40 mg PO DAILY #0 tabs 10/17/24 Unknown Rx lidocaine 5 % topical patch 1 patch topical DAILY 30 days #30 10/17/24 Unknown Rx ea mirtazapine 15 mg tablet 7.5 mg (1/2 x 15 mg) PO 2200 30 10/17/24 Unknown Rx days #15 tabs sodium bicarbonate 650 mg tablet 650 mg PO 4X/DAY 30 days #120 tabs 10/17/24 Unknown Rx cholecalciferol (vitamin D3) 25 50 mcg PO DAILY 10/26/24 Unknown History mcg (1,000 unit) tablet fluoride (sodium) 1.1 % dental 1 applic PO Q24H 10/26/24 Unknown History cream (Denta 5000 Plus) lacosamide 100 mg tablet 100 mg PO Q12H 10/26/24 Unknown History nystatin 100,000 unit/gram topical topical 10/26/24 Unknown History powder (Klayesta) vibegron 75 mg tablet (Gemtesa) 75 mg PO DAILY 10/26/24 Unknown History polyethylene glycol 3350 17 17 g PO DAILY 10/29/24 Unknown History gram/dose oral powder (Miralax) methenamine hippurate 1 gram tablet 1 g PO BID #180 tabs 11/11/24 Unknown Rx apixaban 2.5 mg tablet (Eliquis) 2.5 mg PO BID #180 tabs 11/18/24 Unknown Rx Allergy/AdvReac Type Severity Reaction Status Date / Time cefazolin (From Kefzol) Allergy Severe hives/difficulty Verified 11/29/24 13:52 swallowing ibuprofen Allergy Unknown Rash Verified 11/29/24 13:52 peanut Allergy Anaphylaxis Verified 11/29/24 13:52 Sulfa (Sulfonamide Allergy Unknown Verified 11/29/24 13:52 Antibiotics) sulfamethoxazole (From Allergy Other Verified 11/29/24 13:52 Bactrim) trimethoprim (From Bactrim) Allergy Other Verified 11/29/24 13:52 Family History Mother Cancer uterine Father No problems noted. Other Uterine cancer Surgical History History of cholecystectomy History of surgery on lower extremity History of esophagogastroduodenoscopy (EGD) Hx of colonoscopy Hx of left cataract extraction History of dental surgery History of open reduction and internal fixation (ORIF) procedure History of cardiac catheterization Hx laparoscopic cholecystectomy H/O shoulder replacement History of left heart catheterization (08/01/22) History of dilatation and curettage History of hysteroscopy History of bilateral knee replacement History of herniorrhaphy Status post debridement History of open reduction and internal fixation (ORIF) procedure H/O hemorrhoidectomy History of gastric bypass Social History household members: other details: She has a roomate housing: house number of children: 1 current occupational status: retired pets and animals: Yes pets and animals: dog(s) Smoking Status: Never smoker alcohol intake: never substance use type: does not use caffeine: Yes Type: coffee Number of servings: 3 Homelessness:: Sheltered Prior Cardiac Testing/Procedures Prior Cardiac Testing/Procedures: Echocardiogram (Previous echo showed EF of 55%.) ROS ROS Narrative Patient is unable to participate in her review of systems Review of Systems ROS Unobtainable: due to encephalopathy, due to mental condition and due to mental status Physical Exam Const Constitutional Narrative: Patient experiencing respiratory distress and is currently unresponsive to verbal communication. HEENT normocephalic Resp Effort and Inspection: tachypneic Auscultation: crackles and diminished lung sounds Cardio S1 normal heart sound and S2 normal heart sound Cardio Narrative: Tachycardia Rate: bradycardia GI normal to inspection, nondistended, normoactive bowel sounds Extremity Extremity Narrative: Patient has a healing wound to the left lower extremity. Skin Wounds: wounds noted Neuro Neuro Narrative: Patient is currently unresponsive and unable to answer questions. Charges/Coding Palliative Care Palliative Care: [id number] New Pt Consult 80+ min HPI Current admission Current Code Status: DNR/DNI-COMFORT CARE ONLY Associated Diagnosis: CHF, JOSE ON CKD, Consult Data Date of Consult: 11/30/24 Location of consult: PCU Reason for referral: WORSENING SYMPTOMS POSSIBLE HOSPICE Referral source: DR. TODD Palliative care diagnosis (Summary list): WORSENING CHF, JOSE ON CKD, ELEVATED TROP Palliative care services/treatment (Accepted, as consult): ACCEPTED BY [facility]. Message left for sonAime Case discussed with referring provider: UPDATED DR. TODD ABOUT FAMILY WISHES AFTER DISCUSSION WITH FAMILY HPI Narrative HPI Narrative: 11/30/24 JPG: Prior to meeting with the patient at bedside I reviewed documentation, labs and radiological studies. I also spoke with case management and the patient's RN. I then met with the patient, Mari at bedside. I introduced myself and palliative care. Patient is currently not interactive and was unable to answer orientation questions. She is tachypneic with very coarse lung sounds bilaterally. She is currently on O2 at 2 L and oxygen saturations are 93 to 94%. She has type bilateral lower extremity edema. In review of her labs I noted that she has WBCs at 12.4, hemoglobin of 9.8 and hematocrit 35.4. Her potassium is 5.0. Her BUN is 87 whereas it was 878 yesterday. Previous creatinine was 3.4 which is now 4.11. GFR is 13. Patient indicated to the physician yesterday that she would not want dialysis if needed. Her BNP today is 11,081 up from 9398. Troponin is 57. Due to the patient being unresponsive I did reach out to the patient's son, Aime in which I had to let leave a message as he was unavailable. I then spoke to the 2nd POMellisa Paez. Introduced myself and the concept of palliative care in which Devora voluntarily excepted her services. I updated Mellisa on the patient's current status. Devora states that she makes decisions for Mari when Aime is unavailable because he lives in [place], [place]. She did state that Mari would wish to be as comfortable as possible going forward. She is aware that Mari has refused dialysis and is endorsed that she would not want any invasive procedures. She has elected to place Mari on hospice services. She states that no one would be able to care for her at home and would require inpatient hospice services. She indicated that her brother has previously been in a life care facility and was requesting that for Mari as well. I did update case management and Dr. Todd about patient and family wishes going forward. Comfort care orders have been placed as well as referral to hospice. All questions that family had were answered PER ADMITTING PHYSICIAN MARI LOPEZ, is a 84 F who presents with shortness of breath. This is a patient with a history of heart failure and CKD presents with increasing shortness of breath over the past few days. Patient was discharged here on November 01 with heart failure and debility. Patient was discharged with furosemide 40 mg daily. Patient states that at home her dose has been decreased to 20. She does have lower extremity edema but states that overall it is a bit improved. Is coughing up greenish phlegm denies any fever or chills. Presented to the emergency room with shortness of breath. Chest x-ray showing signs of pulmonary vascular congestion. BNP was elevated at 9398, troponin was 57. Her creatinine was up to 3.97 up from 3.4 back on November 14. Patient's potassium was 6 however that was hemolyzed. Palliative Assessment Advanced Directive - Current Admission Advance Directive: Advance Directive ON ADMISSION - REFERENCE Do you have a Healthcare No 11/29/24 18:15 Living Will? Do you have a Healthcare Power Yes 11/29/24 18:15 of Cad Designer Drafter? Is a Healthcare Power of Yes, It is scanned in 11/29/24 18:15 Cad Designer Drafter present in the medical rec Name of Medical Power of Yulia Sawyer 11/29/24 18:15 Cad Designer Drafter Do You Want Additional Declined 11/29/24 18:15 Information on Advanced Directives or Healthcare Proxy/DPOA comments: Mellisa [phone], son Aime: [phone]. Psychosocial/Spiritual Information Living situation/Marital status: Lives independently but has been in and out of nursing facilities recently. 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 Symptoms Palliative performance scale: 10 Palliative prognostic index: 15 (if the PPI is greater then 6.0, survival is less than 3 weeks.) Dyspnea symptoms: Severe Cough symptoms: Severe Diarrhea symptoms: None Weakness symptoms: Severe Confusion symptoms: Severe Side Effects & Interventions: Comfort care orders placed. Objective Data Objective Data Vital Signs: Vital Signs Temp Pulse Resp BP Pulse Ox O2 Del Method O2 Flow Rate 97.0 F L 108 H 20 H 109/76 94 Nasal Cannula 2 11/30/24 03:16 11/30/24 03:16 11/30/24 03:16 11/30/24 06:13 11/30/24 03:16 11/30/24 09:33 11/30/24 09:33 FiO2 40 11/29/24 14:14 Oxygen Flow Rate (L/min) 2 Oxygen Delivery Method Nasal Cannula Weight: 266 lb 15.677 oz Body Mass Index (BMI) 48.8 Intake & Output: Intake and Output for Last 24 Hours 11/28/24 11/29/24 11/30/24 23:59 23:59 23:59 Intake Total 1100 / 1100 Output Total 1150 / 1150 300 / 300 Balance -50 / -50 -300 / -300 Lab / Micro Data Attestation: I reviewed the patient's lab results. 11/30/24 06:27 11/30/24 06:27 Labs: Laboratory Results - last 24 hr 11/29/24 14:25: WBC 12.3 H, RBC 3.17 L, Hgb 10.6 L, Hct 34.6 L, MCV 109.1 H, MCH 33.4 H, MCHC 30.6 L, RDW Std Deviation 66.9 H, RDW Coeff of Parris 16.4 H, Plt Count 160, MPV 14.0 H, Immature Gran % (Auto) 0.600, Neut % (Auto) 79.4 H, Lymph % (Auto) 11.3 L, [place] % (Auto) 6.1, Eos % (Auto) 2.1, Baso % (Auto) 0.5, Absolute Neuts (auto) 9.7 H, Absolute Lymphs (auto) 1.39, Nucleated RBC % 0, Platelet Estimate ADEQUATE, Polychromasia 1+, Anisocytosis 1+, Tear Drop Cells 1+, Ovalocytes 1+, PT 16.4 H, INR 1.3, APTT 23.7 L, Sodium 139, Potassium 6.0 H*, Chloride 107, Carbon Dioxide 12.5 L, Anion Gap 20 H, BUN 86 H, Creatinine 3.97 H, Estim Creat Clear Calc 13.61 L, Est GFR (MDRD) Non-Af 11 L, BUN/Creatinine Ratio 21.7 H, Glucose 83, Lactic Acid 1.1, Calcium 8.9, Total Bilirubin 0.38, AST 29, ALT 29, Alkaline Phosphatase 119 H, Troponin T High Sens 57 H* D, NT pro BNP II 9398 H, Total Protein 6.9, Albumin 3.6, Globulin 3.2, Albumin/Globulin Ratio 1.1 11/29/24 15:12: Urine Color Yellow, Urine Clarity Clear, Urine pH 6.0, Ur Specific [place] 1.015, Urine Protein 15 H, Urine Glucose (UA) Normal, Urine Ketones Negative, Urine Occult Blood Negative, Urine Nitrite Negative, Urine Bilirubin Negative, Urine Urobilinogen Normal, Ur Leukocyte Esterase 100 H, Urine RBC 0 SEEN, Urine WBC 5-10 SEEN, Ur Squamous Epith Cells 0 SEEN, Urine Bacteria 0 SEEN, Urine Mucus 0 SEEN 11/29/24 17:03: Sodium 141 11/29/24 17:03: Sodium Cancelled, Potassium 5.1 11/29/24 17:03: Potassium Cancelled, Chloride 112 H 11/29/24 17:03: Chloride Cancelled, Carbon Dioxide 9.0 L* 11/29/24 17:03: Carbon Dioxide Cancelled, Anion Gap 19 H 11/29/24 17:03: Anion Gap Cancelled, BUN 78 H 11/29/24 17:03: BUN Cancelled, Creatinine 3.41 H 11/29/24 17:03: Creatinine Cancelled, Estim Creat Clear Calc 15.53 L 11/29/24 17:03: Estim Creat Clear Calc Cancelled, Est GFR (MDRD) Non-Af 13 L 11/29/24 17:03: Est GFR (MDRD) Non-Af Cancelled, BUN/Creatinine Ratio 22.7 H 11/29/24 17:03: BUN/Creatinine Ratio Cancelled, Glucose 77 11/29/24 17:03: Glucose Cancelled, Calcium 7.6 11/29/24 17:03: Calcium Cancelled, Troponin T Hi Sens 2 Hr 47 H 11/30/24 00:32: [place] [address] H 11/30/24 06:27: WBC 12.4 H, RBC 2.94 L, Hgb 9.8 L, Hct 32.4 L, MCV 110.2 H, MCH 33.3 H, MCHC 30.2 L, RDW Std Deviation 67.0 H, RDW Coeff of Parris 16.3 H, Plt Count 170, MPV 13.4 H, Immature Gran % (Auto) 0.600, Neut % (Auto) 76.8 H, Lymph % (Auto) 12.1 L, H[place] % (Auto) 8.3, Eos % (Auto) 1.7, Baso % (Auto) 0.5, Absolute Neuts (auto) 9.6 H, Absolute Lymphs (auto) 1.50, Nucleated RBC % 0, Anisocytosis 1+, Sodium 141, Potassium 5.0, Chloride 111 H, Carbon Dioxide 14.0 L, Anion Gap 17 H, BUN 87 H, Creatinine 4.11 H, Estim Creat Clear Calc 13.08 L, Est GFR (MDRD) Non-Af 10 L, BUN/Creatinine Ratio 21.3 H, Glucose 73, Calcium 8.7, Total Bilirubin 0.38, AST 20, ALT 25, Alkaline Phosphatase 123 H, Total Protein 6.5, Albumin 3.6, Globulin 2.9, Albumin/Globulin Ratio 1.2 Micro: Microbiology 11/29/24 16:00 Wound - Leg, Right Wound Culture - Preliminary Gram negative nancy 11/29/24 15:12 Mucosa - Nose SARS-CoV-2, Influenza & RSV (PCR) - Final Radiography Diagnostic Testing: Radiology Impression Chest X-Ray 11/29/24 15:37 IMPRESSION: Probable edema in the setting of cardiomegaly. Reading Location: [facility] Tibia/Fibula X-Ray 11/29/24 15:37 IMPRESSION: No acute osseous abnormality. Soft tissue swelling. Reading Location: [id number] Chest X-Ray 11/29/24 23:59 IMPRESSION: Unremarkable metallic prosthesis of the left shoulder. Unchanged cardiomegaly. Unchanged mild left pleural effusion. Mildly improved passive atelectatic airspace disease of the left lower lobe. Unchanged minimal right pleural effusion. Enlarged cardiac silhouette. Unchanged mild central pulmonary venous congestion. Reading Location: [place] [address] Social Homelessness:: Sheltered Impressions & Recommendations Patient & Family Issues discussed with the patient and family: Patient unable to participate Patient goal: Patient unable to participate Family goal: I did speak with the patient's second POA in which she indicated that Mari would want to be as comfortable as possible going forward. After extensive discussion we did elect to transition her to inpatient hospice. Ethical & Legal Ethical and legal: Primary POA was unavailable I did speak with the second POA. Recommentation Palliative recommendations: Recommend hospice based on patient's current presentation, labs and wishes going forward per family. Encouter Achieved as a result of this Palliative Care Encounter: [[id number])=108 minutes were spent in total for this visit which consisted, primarily of counseling and education dealing with the complex and emotionally intense issues of symptom management and palliative care in the setting of serious and potentially life-threatening illness. Review of documentation, labs and radiological studies. ?Patient/family had the opportunity to ask questions Plan (1) Acute hypoxic respiratory failure: PLAN: Titrate O2 for comfort If impending , discontinue O2. (2) CHF exacerbation: QUALIFIERS: Heart failure type: diastolic Qualified Code(s): I50.33 - Acute on chronic diastolic (congestive) heart failure PLAN: Medical management per primary team (3) Elevated troponin I level: PLAN: Medical management per primary team (4) Anemia: QUALIFIERS: Anemia type: due to chronic kidney disease PLAN: Medical management per primary team (5) Chronic kidney disease: QUALIFIERS: Chronic kidney disease stage: stage 5 (GFR < 15), not on chronic dialysis Qualified Code(s): N18.5 - Chronic kidney disease, stage 5 PLAN: Patient stated to physician that she does not want dialysis (6) Palliative care encounter: PLAN: - Discussion with POA about transitioning patient to comfort care and hospice -Comfort care orders placed - Discussion with case management about referral to inpatient hospice - Updated primary provider - Order placed for inpatient hospice with [facility] - Warm handoff to life care providers
--- NOTE | 2024-11-30 11:09 | CASEMGMT ---
Addendum entered by Joanne Dutton 11/30/24 15:54: Hospice planned consult at 16:30. SAMIR remains available to follow. Transport sheet on chart. JANA Blair Original Note: Social Work- SW collaborated with Palliative VAT WASHER and hospitalist for plan of care. Palliative VAT WASHER recommending [facility] hosp[facility]. Message left for son, primary POA. Palliative VAT WASHER spoke with alternate POA, Mellisa, who is agreeable to referral. VAT WASHER placed order. SAMIR completed referral and faxed documentation. SAMIR remains available to follow. JANA Blair
[2024-11-30] MEDS: 0.9% Saline Lock 10 ML Syringe IV (11:53)
[2024-11-30] MEDS: Scopolamine 1mg/72hr Patch 1 PATCH TD (15:37)
--- NOTE | 2024-11-30 15:53 | CHAPLAIN ---
Type of Pastoral Visit _x__ Initial Visit ___ Follow-up Visit ___ On-call Visit ___ General Patient Visit ___ Spiritual Assessment ___ Family Conference ___ Bereavement ___ Rapid Response ___ Code Blue ___ Other (describe below) Pastoral Care Referral From ___ Patient _x__ Family _x__ Nurse ___ Physician ___ Thread Grinder ___ Inspector Timers ___ Other (describe below) Sacrament/Intervention ___ Active listening ___ Anointing ___ Mu-Ism ___ Bereavement ___ Communion ___ Jade exploration ___ ___ Life review _x__ Prayer ___ Reconciliation ___ Sacrament of Sick _x__ Supportive presence ___ Wedding ___ Other (describe below) Pastoral Comments patient is unresponsive and will be going to hospice per RN report; no one else is present at this time; pt has been seen many times previously; pt is a person of deep jade; silent prayers spoken and a calling card left at bedside table for family members;
--- NOTE | 2024-11-30 17:10 | DCINST_ITS ---
Discharge Instructions DC O2, CPAP, BIPAP needs Home O2 Discharge instructions: Yes Type of respiratory needs?: Oxygen Oxygen frequency: Continuous Continuous oxygen liters per minute: 2 Follow Up Care Test Results: Test results from this visit will be discussed in further detail at your follow- up appointment, if applicable. Discharge Plan Admission Admit Date/Time: 11/29/24 17:28 Primary Reason for Your Visit: CHF. JOSE Attending Provider: Russell Todd Primary Care Provider: Marko Capone Consulting Providers: Ralph Silva; Eusebia Fuller; Piedad Morales; Me flaco Arroyo; Nazanin Jeter WORK OVER RIG OPERATOR; Leyla Weston Discharge Orders/Prescriptions Prescriptions: New acetaminophen 650 mg Suppository 650 mg [place] Q4H PRN PRN (Reason: Pain 1-10 Or Fever) Qty: 0 0RF albuterol sulfate 2.5 mg /3 mL (0.083 %) Solution For Nebulization 2.5 mg inhalation Q4H PRN PRN (Reason: Dyspnea) Qty: 0 0RF glycopyrrolate 0.2 mg/mL Solution 0.1 mg IV Q4H PRN (Reason: Congestion) Qty: 0 0RF hyoscyamine sulfate 0.125 mg Tablet,Disintegrating 0.125 mg PO/SL Q4H PRN PRN (Reason: Congestion) Qty: 0 0RF atropine 1 % Drops 4 drp sublingual Q1H PRN PRN (Reason: Secretions) Qty: 0 0RF lorazepam 2 mg/mL Concentrate 0.5 mg sublingual Q4H PRN PRN (Reason: Agitation) Qty: 0 0RF morphine concentrate 10 mg/0.5 mL Syringe 5 mg PO/SL Q2H PRN PRN (Reason: Pain Score 1-10) Qty: 0 0RF scopolamine base 1 mg over 3 days Patch 3 Day 1 patch transdermal Q3D Qty: 0 0RF Remove Patch 1 patch topical DAILY@2199 Qty: 0 0RF Continued acetaminophen 500 mg Tablet 1,000 mg PO TID Qty: 0 0RF lidocaine 5 % Adhesive Patch,Medicated 1 patch topical DAILY 30 Days Qty: 30 0RF Protocol: *Topical Application Instructions APPLICATION INSTRUCTIONS: affected area mirtazapine 15 mg Tablet 7.5 mg PO 2199 30 Days Qty: 15 0RF lacosamide 100 mg tablet 100 mg PO Q12H Discontinued Mirena 20 mcg/24 hours (7 yrs) 52 mg intrauterine device 1 mcg intrauterine ONCE nitroglycerin 0.4 mg tablet, sublingual 0.4 mg sublingual Q5M PRN (Reason: chest pain) Qty: 30 1RF Rx Instructions: do not exceed 3 doses per episode methenamine hippurate 1 gram tablet 1 g PO BID Qty: 180 3RF carvedilol 6.25 mg tablet 6.25 mg PO BID multivitamin Tablet 1 tab PO DAILY Arthritis Pain Compound 3 click topical BID 30 Days Qty: 60 0RF furosemide 40 mg Tablet 40 mg PO DAILY Qty: 0 0RF sodium bicarbonate 650 mg Tablet 650 mg PO 4X/DAY 30 Days Qty: 120 0RF ferrous sulfate [FeroSul] 325 mg (65 mg iron) Tablet 325 mg PO DAILY@1200 30 Days Qty: 30 0RF nystatin [Klayesta] 100,000 unit/gram powder topical fluoride (sodium) [Denta 5000 Plus] 1.1 % cream 1 applic PO Q24H cholecalciferol (vitamin D3) 25 mcg (1,000 unit) tablet 50 mcg PO DAILY Gemtesa 75 mg tablet 75 mg PO DAILY polyethylene glycol 3350 [Miralax] 17 gram/dose powder 17 g PO DAILY levothyroxine 125 mcg tablet 125 mcg PO DAILY Patient Comments: TAKE 1 TABLET BY MOUTH ONCE DAILY. TAKE ON EMPTY STOMACH. FOR THYROID. calcium acetate(phosphat bind) 667 mg Capsule 667 mg PO TIDCM Qty: 1 0RF sennosides-docusate sodium [Stimulant Laxative Plus] 8.6-50 mg Tablet 2 tab PO BID Qty: 1 0RF Eliquis 2.5 mg tablet 2.5 mg PO BID Qty: 180 3RF Referrals / Follow Up: Marko Capone MD [Primary Care Provider] - Disposition Disposition (needs filled in before D/C Order can be placed): Hospice in Medical Facility
--- NOTE | 2024-11-30 17:52 | NURSING ---
Report called to nurse Richards for pt to be transferred to inpatient hospice, [facility].
--- NOTE | 2024-11-30 18:00 | DS.PCM_ITS ---
Providers Date of Admission: 11/29/24 Primary Care Physician: Dr. Marko Capone MD Consultations 11/30/24 10:20 Consult: Hospice / Outpatient Palliative Care Routine Consulting Provider: [facility] Reason for Consult: end of life EMERGENT Consult: Yes MD Notified: Yes Date Notified: 11/30/24 Time Notified: 10:21 Method of Notification: Verbal Reason For Visit: CHF EXACERBATION Diagnosis Discharge Diagnosis (1) (HFpEF) heart failure with preserved ejection fraction: Status: Resolved Code(s): I50.30 - Unspecified diastolic (congestive) heart failure Plan: EF 55% from earlier this year. Will repeat echocardiogram to see was been any changes. Patient received amantadine in the emergency room. DC furosemide given worsening kidney function. Fluid restrict. Daily weights. Patient's weight overall has increased roughly 5 kg since earlier this month. Complicated by worsening kidney disease. Symptoms seem more consistent with CHF particular given her history. I do not suspect pneumonia at this time but will monitor clinically with expectant management if things were to develop while she is here that may warrant treatment for pneumonia. (2) Acute renal failure superimposed on stage 3b chronic kidney disease: Status: Resolved Code(s): N17.9 - Acute kidney failure, unspecified; N18.32 - Chronic kidney disease, stage 3b Qualifiers: Acute renal failure type: unspecified Qualified Code(s): N17.9 - Acute kidney failure, unspecified; N18.32 - Chronic kidney disease, stage 3b Plan: Creatinine up to 3.97. Monitor closely while on IV furosemide. Discussed with the patient that if her kidney function would have worsened to see if she would want to have dialysis. She declines dialysis so we will hold off on nephrology consultation unless she were to decide on proceeding with hemodialysis. Concerned the patient may have cardiorenal syndrome. Patient did have an ultrasound of her kidneys on September 28 this year. No indication to recheck that at this time. (3) Elevated troponin I level: Status: Acute Code(s): R79.89 - Other specified abnormal findings of blood chemistry Plan: Likely type II event but likely also skewed given her CKD. Plan Open leg wound: * This overall is improving. Will consult wound care Debility: PT OT evaluate and treat. Case management to assist in disposition. Tremulousness: Patient complains of that but patient previously been on gabapentin but not seeing that on her MAR at this time. Expectant management at this time. Chronic medical conditions * Obesity class III: Complicates care and recovery * Paroxysmal atrial fibrillation: Continue carvedilol and apixaban * Hypothyroidism: Continue levothyroxine. TSH 4.31. Check free T4. VTE prophylaxis: Not indicated as patient is already anticoagulated Given the worsening kidney function and top of heart failure and overall poor performance status at this time, palliative care was consulted and they will patient to be evaluated by hospice this afternoon. Medications at Discharge Home Medications acetaminophen 500 mg tablet 1,000 mg (2 x 500 mg) PO TID #0 tabs 10/17/24 lidocaine 5 % topical patch 1 patch topical DAILY 30 days #30 ea 10/17/24 mirtazapine 15 mg tablet 7.5 mg (1/2 x 15 mg) PO 2199 30 days #15 tabs 10/17/24 lacosamide 100 mg tablet 100 mg PO Q12H 10/26/24 Remove Patch 1 patch topical DAILY@2199 ##0 11/30/24 acetaminophen 650 mg rectal suppository 650 mg OH Q4H PRN PRN Pain 1-10 Or Fever #0 ea 11/30/24 albuterol sulfate 2.5 mg/3 mL (0.083 %) solution for nebulization 2.5 mg (3 mL) inhalation Q4H PRN PRN Dyspnea #0 mL 11/30/24 atropine 1 % eye drops 4 drp sublingual Q1H PRN PRN Secretions #0 mL 11/30/24 glycopyrrolate 0.2 mg/mL injection solution 0.1 mg (0.5 mL) IV Q4H PRN Congestion #0 mL 11/30/24 hyoscyamine sulfate 0.125 mg disintegrating tablet 0.125 mg PO/SL Q4H PRN PRN Congestion #0 tabs 11/30/24 lorazepam 2 mg/mL oral concentrate 0.5 mg (0.25 mL) sublingual Q4H PRN PRN Agitation #0 mL 11/30/24 morphine concentrate 10 mg/0.5 mL oral syringe (FOR ORAL USE ONLY) 5 mg (0.25 mL) PO/SL Q2H PRN PRN Pain Score 1-10 #0 ea 11/30/24 scopolamine base 1 mg over 3 days transdermal patch 1 patch transdermal Q3D #0 ea 11/30/24 Hospital Course Operations None Procedures None Summary of Care Provided Hospital Course: This is an 84-year-old female with a history of CKD and heart failure presents with increasing shortness of breath. Patient was diagnosed with CHF exacerbation and started on furosemide. Patient had endorsed when I admitted her that she was ready to be done. But we discussed and patient agreed to proceed with medical treatment but unfortunate with the diuresis that her creatinine continue to worsen. Decision was then made to consult palliative care and palliative care discussed with family and they wish to proceed with hospice. Patient was discharged to the hospice care unit on the . Medical Records Data Homelessness:: Sheltered Weight / BMI Weight Weight: 121.1 kg Body Mass Index (BMI) 48.8 ABG / Lab / Microbiology Data 11/30/24 06:27 11/30/24 06:27 Microbiology: Microbiology 11/29/24 15:30 Blood Culture (Wb) - Right Forearm Blood Culture - Preliminary No growth in 48 hours. 11/29/24 15:12 Urine, Catheterized Urine Culture - Final Culture exhibits no growth. 11/29/24 16:00 Wound - Leg, Right Gram Stain - Final 11/29/24 16:00 Wound - Leg, Right Wound Culture - Final Serratia marcescens 11/29/24 15:12 Mucosa - Nose SARS-CoV-2, Influenza & RSV (PCR) - Final D/C Instructions DC O2, CPAP, BIPAP Needs Home O2 Discharge instructions: Yes Type of respiratory needs?: Oxygen Oxygen frequency: Continuous Continuous oxygen liters per minute: 2 DC home with Oxygen: No Meaningful Use Info Meaningful Use Meaningful Use Diagnoses (Choose all that apply): None applicable Discharge Plan Admission Admit Date/Time: 11/29/24 17:28 Primary Reason for Your Visit: CHF. JOSE Attending Provider: Russell Todd Primary Care Provider: Marko Capone Consulting Providers: Ralph Silva; Eusebia Fuller; Piedad Morales; Cherise Arroyo; Nazanin Jeter SKIMMER; Leyla Weston Discharge Orders/Prescriptions Prescriptions: New acetaminophen 650 mg Suppository 650 mg OH Q4H PRN PRN (Reason: Pain 1-10 Or Fever) Qty: 0 0RF albuterol sulfate 2.5 mg /3 mL (0.083 %) Solution For Nebulization 2.5 mg inhalation Q4H PRN PRN (Reason: Dyspnea) Qty: 0 0RF glycopyrrolate 0.2 mg/mL Solution 0.1 mg IV Q4H PRN (Reason: Congestion) Qty: 0 0RF hyoscyamine sulfate 0.125 mg Tablet,Disintegrating 0.125 mg PO/SL Q4H PRN PRN (Reason: Congestion) Qty: 0 0RF atropine 1 % Drops 4 drp sublingual Q1H PRN PRN (Reason: Secretions) Qty: 0 0RF lorazepam 2 mg/mL Concentrate 0.5 mg sublingual Q4H PRN PRN (Reason: Agitation) Qty: 0 0RF morphine concentrate 10 mg/0.5 mL Syringe 5 mg PO/SL Q2H PRN PRN (Reason: Pain Score 1-10) Qty: 0 0RF scopolamine base 1 mg over 3 days Patch 3 Day 1 patch transdermal Q3D Qty: 0 0RF Remove Patch 1 patch topical DAILY@2199 Qty: 0 0RF Continued acetaminophen 500 mg Tablet 1,000 mg PO TID Qty: 0 0RF lidocaine 5 % Adhesive Patch,Medicated 1 patch topical DAILY 30 Days Qty: 30 0RF Protocol: *Topical Application Instructions APPLICATION INSTRUCTIONS: affected area mirtazapine 15 mg Tablet 7.5 mg PO 2199 30 Days Qty: 15 0RF lacosamide 100 mg tablet 100 mg PO Q12H Discontinued Mirena 20 mcg/24 hours (7 yrs) 52 mg intrauterine device 1 mcg intrauterine ONCE nitroglycerin 0.4 mg tablet, sublingual 0.4 mg sublingual Q5M PRN (Reason: chest pain) Qty: 30 1RF Rx Instructions: do not exceed 3 doses per episode methenamine hippurate 1 gram tablet 1 g PO BID Qty: 180 3RF carvedilol 6.25 mg tablet 6.25 mg PO BID multivitamin Tablet 1 tab PO DAILY Arthritis Pain Compound 3 click topical BID 30 Days Qty: 60 0RF furosemide 40 mg Tablet 40 mg PO DAILY Qty: 0 0RF sodium bicarbonate 650 mg Tablet 650 mg PO 4X/DAY 30 Days Qty: 120 0RF ferrous sulfate [FeroSul] 325 mg (65 mg iron) Tablet 325 mg PO DAILY@1200 30 Days Qty: 30 0RF nystatin [Klayesta] 100,000 unit/gram powder topical fluoride (sodium) [Denta 5000 Plus] 1.1 % cream 1 applic PO Q24H cholecalciferol (vitamin D3) 25 mcg (1,000 unit) tablet 50 mcg PO DAILY Gemtesa 75 mg tablet 75 mg PO DAILY polyethylene glycol 3350 [Miralax] 17 gram/dose powder 17 g PO DAILY levothyroxine 125 mcg tablet 125 mcg PO DAILY Patient Comments: TAKE 1 TABLET BY MOUTH ONCE DAILY. TAKE ON EMPTY STOMACH. FOR THYROID. calcium acetate(phosphat bind) 667 mg Capsule 667 mg PO TIDCM Qty: 1 0RF sennosides-docusate sodium [Stimulant Laxative Plus] 8.6-50 mg Tablet 2 tab PO BID Qty: 1 0RF Eliquis 2.5 mg tablet 2.5 mg PO BID Qty: 180 3RF Referrals / Follow Up: Marko Capone MD [Primary Care Provider] - Disposition Disposition (needs filled in before D/C Order can be placed): Hospice in Medical Facility Charges/Coding Visit Charges Inpatient E&M: 06451 Disch Hosp
== END 2024-11-30 18:28 | disposition hospice, inpatient (51) | DRG 291 ==
LOC: ED 17:49 → PCU 17:54
PROVIDERS: Internal Medicine; Emergency Provider Emergency Medicine; PCP Family Medicine
DX: I13.0 Hypertensive heart and chronic kidney disease with heart failure and stage 1 through stage 4 chronic kidney disease, or unspecified chronic kidney disease (principal); I50.33 Acute on chronic diastolic (congestive) heart failure; J96.01 Acute respiratory failure with hypoxia; I24.89 Other forms of acute ischemic heart disease; N17.9 Acute kidney failure, unspecified; Z68.42 Body mass index [BMI] 45.0-49.9, adult; Z59.00 Homelessness unspecified; D63.1 Anemia in chronic kidney disease; Z51.5 Encounter for palliative care; J44.9 Chronic obstructive pulmonary disease, unspecified; E03.9 Hypothyroidism, unspecified; Z91.158 Patient's noncompliance with renal dialysis for other reason; N18.32 Chronic kidney disease, stage 3b; I48.0 Paroxysmal atrial fibrillation; D53.9 Nutritional anemia, unspecified; I25.10 Atherosclerotic heart disease of native coronary artery without angina pectoris; I44.7 Left bundle-branch block, unspecified; G47.33 Obstructive sleep apnea (adult) (pediatric); E87.5 Hyperkalemia; Z66 Do not resuscitate; E66.813 Obesity, class 3; Z86.711 Personal history of pulmonary embolism; Z79.899 Other long term (current) drug therapy; Z86.718 Personal history of other venous thrombosis and embolism; Z79.01 Long term (current) use of anticoagulants; R53.81 Other malaise; Z86.16 Personal history of COVID-19; Z79.890 Hormone replacement therapy; Z90.49 Acquired absence of other specified parts of digestive tract; Z98.84 Bariatric surgery status; S80.811D Abrasion, right lower leg, subsequent encounter
CPT/HCPCS: 36415; 51702; 71045; 71046; 73590; 80048; 80053; 81001; 83605; 83880; 84484; 85025; 85610; 85730; 87040; 87070; 87077; 87086; 87186; 87205; 87631; 93005; 94002; 94660; 94668; 97802; 99285; A4216; J1938